=== PATIENT | male | born 1960 | race American Indian/Alaskan Native ===

== ENCOUNTER 2020-02-24 08:19 | Inpatient (IN) | payer MEDICARE ==
--- NOTE | 2020-02-24 09:29 | XRay Report ---
Chest single view INDICATION: Dyspnea IMPRESSION: Severe multifocal airspace disease within the mid and lower lungs noted bilaterally. Signer Name: Gianluca Quinteros MD Signed: 02/24/2020 9:24 AM Workstation Name: [id number]
[2020-02-24 09:40] LABS: Hematocrit 42.7 % (35.5-45.6); Hemoglobin 14.3 gm/dl (11.8-15.2); Mean Corpuscular HGB Conc 34 % (32-34); Mean Corpuscular Volume 85 fl (84-94); Platelet Count 401 K/mm3 (140-440); Red Blood Count 5.05 M/mm3 (3.65-5.03); Red Cell Distribution Width 15.3 % (13.2-15.2)
[2020-02-24 09:52] LABS: INR 1.21 (0.87-1.13); Partial Thromboplastin Time 25.4 Sec. (24.2-36.6)
--- NOTE | 2020-02-24 09:59 | Emergency Department Report ---
ED Shortness of Breath HPI - General Chief Complaint: Dyspnea/Respdistress Stated Complaint: CONOR Time Seen by Provider: 02/24/20 08:25 Source: patient Mode of arrival: Ambulatory Limitations: No Limitations - History of Present Illness Initial Comments: 59-year-old male, history of ALS, presents to ED with difficulty breathing, onset this morning. Patient is on a trilogy machine for breathing 18/11. EMS arrived, patient had O2 sats in the 80s. EMS attempted to place patient on their CPAP machine, however patient did not tolerate. Patient denies any fever, cough, chest pain. Patient long term care social worker is at bedside. She states patient has not been hospitalized in the last 2 years. Patient has a home health nurse, and lives with another individual. No known sick contacts. MD Complaint: shortness of breath -: This morning Severity: moderate Consistency: constant Improves With: nothing Worsens With: nothing Known History Of: other (ALS) - Related Data Home Medications Medication Instructions Recorded Confirmed Last Taken Baclofen 10 mg PO BID 02/24/20 02/24/20 Unknown Doxazosin 4 mg PO BID 02/24/20 02/24/20 Unknown Etodolac ER 500 mg PO BID 02/24/20 02/24/20 Unknown Lyrica 150 mg PO BID 02/24/20 02/24/20 Unknown Valium 5 mg PO DAILY 02/24/20 02/24/20 Unknown Allergies Allergy/AdvReac Type Severity Reaction Status Date / Time buprenorphine [From Butrans] Allergy Unknown Verified 02/24/20 08:37 fentanyl Allergy Unknown Verified 02/24/20 08:37 oxycodone [From OxyContin] Allergy Unknown Verified 02/24/20 08:37 ED Review of Systems ROS: Stated complaint: CONOR Other details as noted in HPI Comment: All other systems reviewed and negative Constitutional: denies: chills, fever Respiratory: shortness of breath. denies: cough Cardiovascular: denies: chest pain Musculoskeletal: other (Denies leg pain) ED Past Medical Hx - Past Medical History Previous Medical History?: Yes Additional medical history: als - Surgical History Past Surgical History?: No - Social History Smoking Status: Never Smoker Substance Use Type: None - Medications Home Medications: Home Medications Medication Instructions Recorded Confirmed Last Taken Type Baclofen 10 mg PO BID 02/24/20 02/24/20 Unknown History Doxazosin 4 mg PO BID 02/24/20 02/24/20 Unknown History Etodolac ER 500 mg PO BID 02/24/20 02/24/20 Unknown History Lyrica 150 mg PO BID 02/24/20 02/24/20 Unknown History Valium 5 mg PO DAILY 02/24/20 02/24/20 Unknown History ED Physical Exam - General Limitations: No Limitations General appearance: alert, in no apparent distress - Head Head exam: Present: atraumatic, normocephalic - Eye Eye exam: Present: normal appearance, EOMI - ENT ENT exam: Present: mucous membranes moist - Neck Neck exam: Present: normal inspection - Respiratory Respiratory exam: Present: decreased breath sounds - Cardiovascular Cardiovascular Exam: Present: normal rhythm, tachycardia - GI/Abdominal GI/Abdominal exam: Present: soft. Absent: distended, tenderness - Extremities Exam Extremities exam: Absent: calf tenderness - Neurological Exam Neurological exam: Present: alert, oriented X3, motor sensory deficit (Generalized weakness secondary to ALS) - Psychiatric Psychiatric exam: Present: normal affect, normal mood - Skin Skin exam: Present: warm, dry, intact, normal color ED Course Vital Signs 02/24/20 02/24/20 02/24/20 08:31 08:36 08:45 Temperature 97.9 F Pulse Rate 122 H 121 H 126 H Respiratory 16 28 H 22 Rate Blood Pressure Blood Pressure 118/75 119/74 121/77 [Left] O2 Sat by Pulse 90 88 95 Oximetry 02/24/20 02/24/20 02/24/20 08:52 09:00 09:15 Temperature Pulse Rate 126 H 127 H 125 H Respiratory 70 H 30 H 22 Rate Blood Pressure 122/83 Blood Pressure 122/83 150/90 [Left] O2 Sat by Pulse 98 96 97 Oximetry 02/24/20 11:52 Temperature Pulse Rate 125 H Respiratory 22 Rate Blood Pressure Blood Pressure [Left] O2 Sat by Pulse 96 Oximetry - Consultations Consultation #1: 02/24/20 12:20 Dr. Mooney, sales and service officer, consulted for hypercapnia. She is currently at bedside. She has made changes to patient's BiPAP settings. We will repeat ABG in an hour to determine if patient will require intubation. Also suggested adding Zosyn to cover for anaerobes for questionable aspiration. - Central Line Placement Right Femoral Consent Obtained: verbal consent Time Out Performed: Yes Patient Placed on Monitor/Pulse Ox: Yes MD Prep: mask, gown, gloves Central Line Prep: Chlorhexidine scrub Local Anesthesia Used: Lidocaine 1% Amount of Anesthesia Used (mls): 3 Ultrasound Used for Placement: No Central Line Lumen Inserted: triple Bloods Obtained for Lab: No Central Line Position: good blood return, all ports aspirated, flus, sutured in place with nyl Dressing Applied: Tegaderm Patient Tolerated Procedure: well Complications: none ED Medical Decision Making - Lab Data Result diagrams: 02/24/20 09:19 02/24/20 09:19 - EKG Data -: EKG Interpreted by Me EKG shows normal: sinus rhythm, axis, intervals, QRS complexes, ST-T waves Rate: tachycardia (rate 126) - Radiology Data Radiology results: report reviewed, image reviewed - Medical Decision Making Patient evaluated during downtime procedures. Electronic chart was unavailable during part of his ED stay. 59-year-old male with history of ALS presents to ED with difficulty breathing. Today found to be hypoxic upon presentation. Patient was placed on BiPAP, which did help with his oxygenation. Chest x-ray showed multifocal pneumonia, with elevated WBCs. Lactic acid normal. Patient eventually became hypotensive, showing signs of severe sepsis, so 30 cc/kg bolus of IV fluids was given. Patient responded well to fluid bolus. Right femoral central line was placed in case pressors were needed. The cultures drawn, Rocephin and azithromycin initially given. Braid Pattern Setter was consulted due to hypercapnia on ABG. Adjustments were made to BiPAP settings, and recommendation for Zosyn administration. Repeat ABG shows improvement and pH and CO2. We will hold off on intubation at this time. Patient admitted to hospitalist team for further management. - Differential Diagnosis Pneumonia, pulmonary edema, COVID-19 Critical Care Time: Yes Critical care time in (mins) excluding proc time.: 35 Critical care attestation.: If time is entered above; I have spent that time in minutes in the direct care of this critically ill patient, excluding procedure time. Critical Care Time: 35 min ED Disposition Clinical Impression: Pneumonia, Suspected 2019 novel coronavirus infection, Elevated troponin, Acute on chronic respiratory failure with hypoxia and hypercapnia, Sepsis Disposition: OP ADMIT IP TO THIS HOSP Is pt being admited?: Yes Condition: Stable Time of Disposition: 10:26
[2020-02-24 10:00] LABS: Alanine Aminotransferase 24 units/L (7-56); Albumin 3.6 g/dL (3.9-5); BUN/Creatinine Ratio 30; Blood Urea Nitrogen 6 mg/dL (9-20); Calcium 9.1 mg/dL (8.4-10.2); Hemolysis Index 9
[2020-02-24] MEDS ORDERED: cefTRIAXone/NS 1 GM/50 ML 1 GM/50 ML BAG IV ONE (10:06)
[2020-02-24 10:11] LABS: Chol/HDL Ratio 2.31 %; HDL Cholesterol 45 mg/dL (40-59); LDL Cholesterol,Direct 41 mg/dL (50-130)
[2020-02-24 10:28] LABS: ABG Base Excess -4.6 mmol/L (-2.0-3.0); ABG HCO3 25.6 mmol/L (20.0-26.0); ABG Methemoglobin 0.7 % (0.0-1.5); ABG Oxygen Saturation 95.2 % (95.0-99.0); ABG PCO2 70.8 mm Hg; ABG PO2 91.2 mm Hg (80.0-90.0)
[2020-02-24] MEDS ORDERED: AZITHROMYCIN 500 MG in SODIUM CHLORIDE 0.9% 250ML 250 ML IV ONE (10:30)
[2020-02-24 10:35] LABS: ABG PH 7.176 pH Units (7.350-7.450)
[2020-02-24 10:39] LABS: Band Neutrophils # (Manual) 2.4 K/mm3; Eosinophils % (Manual) 0 % (0.0-4.3); Total Cells Counted 100
[2020-02-24 10:42] LABS: Basophils % (Manual) 0 % (0.0-1.8); Platelet Estimate Consistent w Auto; RBC Morphology Normal
[2020-02-24 10:59] LABS: C-Reactive Protein 26.1 mg/dL (0.00-1.30)
[2020-02-24] MEDS ORDERED: SODIUM CHLORIDE 0.9% 1000 ML 1,000 ML ONE (11:11)
[2020-02-24] MEDS ORDERED: SODIUM CHLORIDE 0.9% 1000 ML 1,000 ML IV ONE (11:26)
[2020-02-24 12:08] LABS: ABG Base Excess -6.8 mmol/L (-2.0-3.0); ABG HCO3 25.7 mmol/L (20.0-26.0); ABG Methemoglobin 0.8 % (0.0-1.5); ABG Oxygen Saturation 93.5 % (95.0-99.0); ABG PCO2 94.9 mm Hg; ABG PO2 94.7 mm Hg (80.0-90.0)
[2020-02-24 12:13] LABS: ABG PH 7.051 pH Units (7.350-7.450)
[2020-02-24] MEDS ORDERED: PIPERACIL/TAZOBACTA 4.5/NS 100 4.5 GM/100 ML VIAL IV ONE ×2 (12:36→13:00)
[2020-02-24 14:04] LABS: ABG Base Excess -7.8 mmol/L (-2.0-3.0); ABG Methemoglobin 0.6 % (0.0-1.5); ABG PCO2 37.3 mm Hg; ABG PH 7.3 pH Units (7.350-7.450); ABG PO2 75.1 mm Hg (80.0-90.0)
--- NOTE | 2020-02-24 15:00 | Consultation ---
History of Present Illness Consult date: 02/24/20 Requesting physician: ALISHA DIANA Reason for consult: other (Critical care managemnet) History of present illness: 59-year-old male, history of ALS, presents to ED with difficulty breathing, onset this morning. Patient is on a trilogy machine for breathing 18/11. EMS arrived, patient had O2 sats in the 80s. EMS attempted to place patient on their CPAP machine, however patient did not tolerate. He has severe hypercapnic respiratory failure with hypersomnolence on current BIPAP settings. Per ED physician who was at the bedside when I evaluated the patient, he was mouthing words and more awake when he first arrived. She states that the patient denied any fever, cough, chest pain. His social media editor was at bedside and she stated patient has not been hospitalized in the last 2 years. If the patient needs [facility] anical ventilatory support, he is willing to pursue it as a treatment option. Patient has a home health nurse, and lives with another individual. No known sick contacts. Patient was seen and examined. Vitals, labs, medications, cahrt and imaging reviewed. His ABG on BIPAP 04/02, back up rate 12, FIO2 45% is 7.0/94.9/94.7. He is somnolent but will open his eyes on sternal rub. Adjustments were made on IPAP and FIO2 at the bedside to achieve minute ventilation of 11, ABG ordered for 1 hour later. Past History Past Medical History: other (ALS, Chronic respiratory failure on Trilogy) Past Surgical History: No surgical history Medications and Allergies Allergies Allergy/AdvReac Type Severity Reaction Status Date / Time buprenorphine [From Butrans] Allergy Unknown Verified 02/24/20 08:37 fentanyl Allergy Unknown Verified 02/24/20 08:37 oxycodone [From OxyContin] Allergy Unknown Verified 02/24/20 08:37 Home Medications Medication Instructions Recorded Confirmed Last Taken Type Baclofen 10 mg PO BID 02/24/20 02/24/20 Unknown History Doxazosin 4 mg PO BID 02/24/20 02/24/20 Unknown History Etodolac ER 500 mg PO BID 02/24/20 02/24/20 Unknown History Lyrica 150 mg PO BID 02/24/20 02/24/20 Unknown History Valium 5 mg PO DAILY 02/24/20 02/24/20 Unknown History Review of Systems ROS unobtainable: due to mental status Physical Examination Vital signs: Vital Signs Pulse Resp BP Pulse Ox 122 H 16 118/75 90 02/24/20 08:31 02/24/20 08:31 02/24/20 08:31 02/24/20 08:31 General appearance: other (somnolent on BIPAP with FFM) Eyes: non-icteric ENT: oropharynx dry Neck: supple, no lymphadenopathy, no JVD Effort: other (moderately labored) Ascultation: Bilateral: diminished breath sounds, rhonchi Cardiovascular: regular rate and rhythm, other (S1,S2, no murmurs) Gastrointestinal: normoactive bowel sounds, non-tender, non-distended Integumentary: normal, other (Femoral CVC) Extremities: no cyanosis, no edema, other (atrophic looking limbs) pupils equal and round, unable to assess other (unable to assess mood or affect secondary to mental status) Results - Laboratory Findings CBC and BMP: 02/25/20 04:00 02/25/20 04:00 ABG ABG pH 7.300 pH Units (7.350-7.450) L 02/24/20 13:45 ABG pCO2 37.3 mm Hg 02/24/20 13:45 ABG pO2 75.1 mm Hg (80.0-90.0) L 02/24/20 13:45 ABG O2 Saturation 95.0 % (95.0-99.0) 02/24/20 13:45 PT/INR, D-dimer PT 15.6 Sec. (12.2-14.9) H 02/24/20 09:19 INR 1.21 (0.87-1.13) H 02/24/20 09:19 D-Dimer 1311.96 ng/mlDDU (0-234) H 02/24/20 09:19 Abnormal lab findings: Abnormal Labs 02/24/20 02/24/20 02/24/20 09:19 09:19 09:19 WBC 20.2 H RBC 5.05 H RDW 15.3 H Seg Neuts % (Manual) 86.0 H Lymphocytes % (Manual) 1.0 L Seg Neutrophils # Man 17.4 H Lymphocytes # (Manual) 0.2 L PT 15.6 H INR 1.21 H D-Dimer 1311.96 H ABG pH ABG pO2 ABG HCO3 ABG O2 Saturation ABG Base Excess ABG Hemoglobin Oxyhemoglobin Sodium 135 L Potassium 3.2 L Chloride 92.2 L BUN 6 L Creatinine < 0.2 L Glucose 124 H Ferritin Total Bilirubin 2.30 H Alkaline Phosphatase 132 H Lactate Dehydrogenase Troponin T 0.080 H C-Reactive Protein Albumin 3.6 L LDL Cholesterol Direct 41 L 02/24/20 02/24/20 02/24/20 09:19 09:58 10:01 WBC RBC RDW Seg Neuts % (Manual) Lymphocytes % (Manual) Seg Neutrophils # Man Lymphocytes # (Manual) PT INR D-Dimer ABG pH 7.176 L* ABG pO2 91.2 H ABG HCO3 ABG O2 Saturation ABG Base Excess -4.6 L ABG Hemoglobin Oxyhemoglobin 92.6 L Sodium Potassium Chloride BUN Creatinine Glucose Ferritin 1715.0 H Total Bilirubin Alkaline Phosphatase Lactate Dehydrogenase 303 H Troponin T C-Reactive Protein 26.10 H Albumin LDL Cholesterol Direct 02/24/20 02/24/20 11:52 13:45 WBC RBC RDW Seg Neuts % (Manual) Lymphocytes % (Manual) Seg Neutrophils # Man Lymphocytes # (Manual) PT INR D-Dimer ABG pH 7.051 L* 7.300 L ABG pO2 94.7 H 75.1 L ABG HCO3 18.0 L ABG O2 Saturation 93.5 L ABG Base Excess -6.8 L -7.8 L ABG Hemoglobin 13.2 L 11.9 L Oxyhemoglobin 91.0 L 92.7 L Sodium Potassium Chloride BUN Creatinine Glucose Ferritin Total Bilirubin Alkaline Phosphatase Lactate Dehydrogenase Troponin T C-Reactive Protein Albumin LDL Cholesterol Direct - Diagnostic Findings Chest x-ray: image reviewed Assessment and Plan Acute on chronic hypoxemic-hypercapnic respiratory failure Sepsis secondary to multifocal Pneumonia History of ALS on Trilogy Multifocal pneumonia, possible element of aspiration PUI-COVID Acute toxic metabolic encephalopathy Elevated D-dimer Elevated troponin possibly type 2 ischemia Hypokalemia Hyponatremia -Continue BIPAP for now, low threshold to intubate if he fails BIPAP therapy -Aspiration precautions, HOB >40 -Permissive hypercapnic is acceptable -CXR, ABG in am - Continue to wean supplemental oxygen for target O2 sats 88-90% -Oxygen restrictive strategies -Antibiotics, add coverage for anaerobes, possible aspiration- de-escalate as clinically indicated. Monitor for toxicities -COVID testing -Lower extremity dopplers r/o VTE -Isolation precautions, per hospital protocol for PUI-COVID - conservative fluid management measures as tolerated by hemodynamics and renal function - Bronchodilators with pulmonary hygiene per RT - Accuchecks with glycemic control per SSI (While critically ill target blood glucose of 140-180 mg/dL; avoid hypoglycemia) - Avoid nephrotoxins, closely monitor renal function, dose all medications for renal function - Stress ulcer prophylaxis -Famotidine - VTE prophylaxis -Enoxaparin - Mobility protocol, off loading and skin assessment for pressure ulcer prevention -Currently has a femoral CVC, discontinue in the morning and place peripheral IVs in the morning - Supportive transfusions as indicated to keep HgB >7g/dL -Place small bowel feeding tube for enteric nutritional support and chronic home medications -RD consult for tube feedings -Trend troponin -Keep potassium at 4, Magnesium at 2 and Phos at 2.5 to optimize respiratory muscle function - Discussed with the ED team-RT,RN, ED physician Life threatening condition- Sepsis secondary to multifocal pneumonia. Acute and chronic hypoxic and hypercapnic resp failure; ALS; PUI-COVID Mortality/Morbidity- High Complexity of medical decision making- High CONDITION: CRITICAL PROGNOSIS: GUARDED CODE STATUS: FULL CODE The high probability of a clinically significant, sudden or life-threatening deterioration of the [respiratory & neurology, renal ] system(s) required my full and direct attention, intervention and personal management. The aggregate critical care time was [65] minutes without overlap. Time includes spent on; [x] Data Review and interpretation [x] Patient assessment and monitoring of vital signs [x] Documentation [x] Medication orders and management
--- NOTE | 2020-02-24 15:06 | History and Physical Report ---
History of Present Illness Date of examination: 02/24/20 Date of admission: 02/24/20 10:37 Chief complaint: Worsening shortness of breath History of present illness: Patient is on continuous BiPAP, no family available; unable to give proper history, obtained from ER note 59-year-old male patient with significant past medical history of ALS, presents to ED with worsening shortness of breath since this morning. Patient is on a trilogy machine for breathing 18/11. EMS arrived, patient had O2 sats in the 80s. EMS attempted to place patient on their CPAP machine, however patient did not tolerate. Patient denies any fever, cough, chest pain. Patient social wor ker is at bedside. She states patient has not been hospitalized in the last 2 years. Patient has a home health nurse, and lives with another individual. No known sick contacts. No other history available. Initial work-up in the emergency room is consistent with bilateral pneumonia on chest x-ray, leukocytosis Hypoxic hypercapnic respiratory failure, elevated D-dimers, elevated inflammatory markers High suspicion for COVID-19, patient placed in isolation droplet and contact Christensen PCR test requested. Patient received empiric antibiotics with Rocephin and Zithromax On continuous BiPAP Pulmonary critical has evaluated the patient Admitting the patient to ICU for close observation Past History Past Medical History: other (ALS) Past Surgical History: denies: No surgical history Social history: denies: smoking, alcohol abuse, prescription drug abuse Family history: denies: no significant family history Medications and Allergies Allergies Allergy/AdvReac Type Severity Reaction Status Date / Time buprenorphine [From Butrans] Allergy Unknown Verified 02/24/20 08:37 fentanyl Allergy Unknown Verified 02/24/20 08:37 oxycodone [From OxyContin] Allergy Unknown Verified 02/24/20 08:37 Home Medications Medication Instructions Recorded Confirmed Last Taken Type Baclofen 10 mg PO BID 02/24/20 02/24/20 Unknown History Doxazosin 4 mg PO BID 02/24/20 02/24/20 Unknown History Etodolac ER 500 mg PO BID 02/24/20 02/24/20 Unknown History Lyrica 150 mg PO BID 02/24/20 02/24/20 Unknown History Valium 5 mg PO DAILY 02/24/20 02/24/20 Unknown History Review of Systems ROS unobtainable: due to mental status Exam - Constitutional Vitals: Temp Pulse Resp BP Pulse Ox 97.9 F 125 H 22 150/90 96 02/24/20 08:36 02/24/20 11:52 02/24/20 11:52 02/24/20 09:15 02/24/20 11:52 General appearance: Present: mild distress, well-nourished, other (On continuous BiPAP) - EENT Eyes: Present: PERRL, EOM intact - Neck Neck: Present: supple, normal ROM - Respiratory Respiratory effort: normal Respiratory: bilateral: diminished, rhonchi, negative: rales, wheezing - Cardiovascular Rhythm: regular Heart Sounds: Present: S1 & S2 - Extremities Extremities: no ischemia, No edema Extremity abnormal: edema - Abdominal General gastrointestinal: Present: soft, non-tender, non-distended, normal bowel sounds - Integumentary Integumentary: Present: clear, warm - Musculoskeletal Musculoskeletal: strength equal bilaterally, generalized weakness - Psychiatric Psychiatric: cooperative, other (Noncommunicative) - Neurologic Neurologic: moves all extremities HEART Score - HEART Score Troponin: Troponin T 0.080 ng/mL (0.00-0.029) H 02/24/20 09:19 Results - Labs CBC & Chem 7: 02/24/20 09:19 02/24/20 09:19 Labs: Abnormal lab results 02/24/20 02/24/20 02/24/20 Range/Units 09:19 09:19 09:19 WBC 20.2 H (4.5-11.0) K/mm3 RBC 5.05 H (3.65-5.03) M/mm3 RDW 15.3 H (13.2-15.2) % Seg Neuts % (Manual) 86.0 H (40.0-70.0) % Lymphocytes % (Manual) 1.0 L (13.4-35.0) % Seg Neutrophils # Man 17.4 H (1.8-7.7) K/mm3 Lymphocytes # (Manual) 0.2 L (1.2-5.4) K/mm3 PT 15.6 H (12.2-14.9) Sec. INR 1.21 H (0.87-1.13) D-Dimer 1311.96 H (0-234) ng/mlDDU ABG pH (7.350-7.450) pH Units ABG pO2 (80.0-90.0) mm Hg ABG HCO3 (20.0-26.0) mmol/L ABG O2 Saturation (95.0-99.0) % ABG Base Excess (-2.0-3.0) mmol/L ABG Hemoglobin (14.0-18.0) gm/dl Oxyhemoglobin (95.0-99.0) % Sodium 135 L (137-145) mmol/L Potassium 3.2 L (3.6-5.0) mmol/L Chloride 92.2 L (98-107) mmol/L BUN 6 L (9-20) mg/dL Creatinine < 0.2 L (0.8-1.3) mg/dL Glucose 124 H (75-100) mg/dL Ferritin (30.0-300.0) ng/mL Total Bilirubin 2.30 H (0.1-1.2) mg/dL Alkaline Phosphatase 132 H (35-129) units/L Lactate Dehydrogenase (91-180) units/L Troponin T 0.080 H (0.00-0.029) ng/mL C-Reactive Protein (0.00-1.30) mg/dL Albumin 3.6 L (3.9-5) g/dL LDL Cholesterol Direct 41 L (50-130) mg/dL 02/24/20 02/24/20 02/24/20 Range/Units 09:19 09:58 10:01 WBC (4.5-11.0) K/mm3 RBC (3.65-5.03) M/mm3 RDW (13.2-15.2) % Seg Neuts % (Manual) (40.0-70.0) % Lymphocytes % (Manual) (13.4-35.0) % Seg Neutrophils # Man (1.8-7.7) K/mm3 Lymphocytes # (Manual) (1.2-5.4) K/mm3 PT (12.2-14.9) Sec. INR (0.87-1.13) D-Dimer (0-234) ng/mlDDU ABG pH 7.176 L* (7.350-7.450) pH Units ABG pO2 91.2 H (80.0-90.0) mm Hg ABG HCO3 (20.0-26.0) mmol/L ABG O2 Saturation (95.0-99.0) % ABG Base Excess -4.6 L (-2.0-3.0) mmol/L ABG Hemoglobin (14.0-18.0) gm/dl Oxyhemoglobin 92.6 L (95.0-99.0) % Sodium (137-145) mmol/L Potassium (3.6-5.0) mmol/L Chloride (98-107) mmol/L BUN (9-20) mg/dL Creatinine (0.8-1.3) mg/dL Glucose (75-100) mg/dL Ferritin 1715.0 H (30.0-300.0) ng/mL Total Bilirubin (0.1-1.2) mg/dL Alkaline Phosphatase (35-129) units/L Lactate Dehydrogenase 303 H (91-180) units/L Troponin T (0.00-0.029) ng/mL C-Reactive Protein 26.10 H (0.00-1.30) mg/dL Albumin (3.9-5) g/dL LDL Cholesterol Direct (50-130) mg/dL 02/24/20 02/24/20 Range/Units 11:52 13:45 WBC (4.5-11.0) K/mm3 RBC (3.65-5.03) M/mm3 RDW (13.2-15.2) % Seg Neuts % (Manual) (40.0-70.0) % Lymphocytes % (Manual) (13.4-35.0) % Seg Neutrophils # Man (1.8-7.7) K/mm3 Lymphocytes # (Manual) (1.2-5.4) K/mm3 PT (12.2-14.9) Sec. INR (0.87-1.13) D-Dimer (0-234) ng/mlDDU ABG pH 7.051 L* 7.300 L (7.350-7.450) pH Units ABG pO2 94.7 H 75.1 L (80.0-90.0) mm Hg ABG HCO3 18.0 L (20.0-26.0) mmol/L ABG O2 Saturation 93.5 L (95.0-99.0) % ABG Base Excess -6.8 L -7.8 L (-2.0-3.0) mmol/L ABG Hemoglobin 13.2 L 11.9 L (14.0-18.0) gm/dl Oxyhemoglobin 91.0 L 92.7 L (95.0-99.0) % Sodium (137-145) mmol/L Potassium (3.6-5.0) mmol/L Chloride (98-107) mmol/L BUN (9-20) mg/dL Creatinine (0.8-1.3) mg/dL Glucose (75-100) mg/dL Ferritin (30.0-300.0) ng/mL Total Bilirubin (0.1-1.2) mg/dL Alkaline Phosphatase (35-129) units/L Lactate Dehydrogenase (91-180) units/L Troponin T (0.00-0.029) ng/mL C-Reactive Protein (0.00-1.30) mg/dL Albumin (3.9-5) g/dL LDL Cholesterol Direct (50-130) mg/dL Assessment and Plan --Acute hypoxic hypercapnic respiratory failure; Requiring BiPAP, continue nebulizers, IV steroids IV antibiotics, pulmonary critical consulted Intubated as needed --High suspicion for COVID-19/PUI Respiratory, droplet isolation Christensen PCR test requested Inflammatory markers high ID consulted --Elevated D-dimers; Check CTA chest, lower extremity venous Doppler Lovenox DVT prophylaxis --Bilateral pneumonia; probably community-acquired Versus atypical, empiric antibiotics Rocephin and Zithromax Cultures, check pro calcitonin --Sepsis secondary to pneumonia Leukocytosis, tachycardia, pneumonia on chest x-ray --Elevated troponin; Serial cardiac enzymes, serial EKGs Echocardiogram, cardiology consult if needed --Hypokalemia; replaced with KCl Monitor levels --Hyponatremia; IV fluids Closely monitor electrolytes --DVT prophylaxis; Lovenox Admit to ICU for close observation We will closely monitor the patient and adjust the management as needed Plan of care reviewed with the patient and her nurse I spent 50 minutes coordinating this admission Critical care time 50 minutes
[2020-02-24] MEDS ORDERED: ALBUTEROL 2.5 MG/3 ML NEBU IH PRN (15:13)
--- NOTE | 2020-02-24 17:36 | Vascular Lab Report ---
DUPLEX DOPPLER LOWER EXTREMITY VEINS, BILATERAL INDICATION / CLINICAL INFORMATION: Elevated D-dimers/rule out DVT. TECHNIQUE: Duplex doppler imaging was performed through the veins of both lower extremities using venous sahara rome and other maneuvers. COMPARISON: None available. FINDINGS: RIGHT COMMON FEMORAL VEIN: Negative. RIGHT FEMORAL VEIN: Negative. RIGHT POPLITEAL VEIN: Negative. RIGHT CALF VEINS: Negative. LEFT COMMON FEMORAL VEIN: Negative. LEFT FEMORAL VEIN: Negative. LEFT POPLITEAL VEIN: Negative. LEFT CALF VEINS: Negative. ADDITIONAL FINDINGS: Right-sided femoral catheter is noted. IMPRESSION: No sonographic evidence for DVT in either lower extremity. Signer Name: Bandar Redman MD Signed: 02/24/2020 5:31 PM Workstation Name: [id number]
[2020-02-24 20:08] LABS: Creatine Kinase MB 3.5 ng/mL (0.0-4.0)
[2020-02-24] MEDS ORDERED: dexAMETHasone 4 MG/ML VIAL ONE (22:22)
[2020-02-24] MEDS ORDERED: METOPROLOL TARTRATE 25 MG TAB ONE (22:22)
[2020-02-24] MEDS ORDERED: ENOXAPARIN 40 MG/0.4 ML INJ SUB-Q ONE (22:22)
[2020-02-24] MEDS: METOPROLOL TARTRATE 25 MG TAB PO SCH (22:29)
[2020-02-24] MEDS: ENOXAPARIN 40 MG/0.4 ML INJ SUB-Q SCH (22:35)
[2020-02-24] MEDS: dexAMETHasone 4 MG/ML VIAL IV SCH (22:35)
--- NOTE | 2020-02-24 23:36 | Cat Scan Report ---
CT ANGIOGRAPHY OF THE CHEST WITH INTRAVENOUS CONTRAST AND MULTIPLANAR MIP RECONSTRUCTIONS INDICATION / CLINICAL INFORMATION: Shortness of breath and elevated d-dimer. TECHNIQUE: Axial CT images were obtained after injection of 100 cc Omnipaque 350 IV contrast using CTA protocol. 3 plane MIP / 3D reconstructions were produced. All CT scans at this location are performed using CT dose reduction for ALARA by means of automated exposure control. COMPARISON: None available. FINDINGS: There is good opacification of the pulmonary arterial system bilaterally without intraluminal filling defect to suggest acute PTE. The thoracic aorta is normal in caliber without dissection. No coronary artery calcification is seen. There is dense consolidation involving the majority of the left lower lobe with air bronchograms pres ent. There is also mild to moderate consolidation in the right lower lobe posteromedially with air br onchograms. There is milder patchy consolidation in the lingula and left upper lobe superiorly. There is also minimal patchy parenchymal disease throughout the remainder of both lungs. I see no evidence of mediastinal or hilar adenopathy. There is a minimal right pleural effusion and there is a trace a mount of pericardial effusion. There is a small simple cyst in the right kidney. The visualized upper abdomen is otherwise unremarka ble. No acute osseous abnormality is seen. IMPRESSION: 1. No evidence of acute PTE. 2. Multifocal pneumonia bilaterally, with severe involvement of the left lower lobe. Differential mandie gnosis includes bacterial pneumonia and aspiration pneumonia. Atypical causes of pneumonia are less l ikely. Signer Name: Chip Fox MD Signed: 02/24/2020 11:31 PM Workstation Name: [id number]
[2020-02-25 06:04] LABS: Hematocrit 37.4 % (35.5-45.6); Hemoglobin 12.3 gm/dl (11.8-15.2); Mean Corpuscular HGB Conc 33 % (32-34); Mean Corpuscular Volume 83 fl (84-94); Platelet Count 468 K/mm3 (140-440); Red Blood Count 4.49 M/mm3 (3.65-5.03); Red Cell Distribution Width 15.2 % (13.2-15.2)
[2020-02-25 06:24] LABS: Alanine Aminotransferase 21 units/L (7-56); Albumin 3.5 g/dL (3.9-5); Blood Urea Nitrogen 11 mg/dL (9-20); Calcium 9.1 mg/dL (8.4-10.2); Hemolysis Index 12
[2020-02-25 06:26] LABS: BUN/Creatinine Ratio 55
[2020-02-25 06:53] LABS: Band Neutrophils # (Manual) 0.2 K/mm3; Basophils % (Manual) 0 % (0.0-1.8); Eosinophils % (Manual) 0 % (0.0-4.3); Platelet Estimate Consistent w Auto; Total Cells Counted 100
[2020-02-25] MEDS ORDERED: cefTRIAXone/NS 1 GM/50 ML 1 GM/50 ML BAG IV ONE ×2 (09:29→10:24)
[2020-02-25] MEDS ORDERED: dexAMETHasone 4 MG/ML VIAL ONE (09:29)
[2020-02-25] MEDS ORDERED: PANTOPRAZOLE 40 MG INJ IV ONE (09:30)
[2020-02-25] MEDS ORDERED: METOPROLOL TARTRATE 25 MG TAB ONE (09:30)
[2020-02-25] MEDS: METOPROLOL TARTRATE 25 MG TAB PO SCH ×2 (09:49→22:45)
[2020-02-25] MEDS: cefTRIAXone/NS 2 GM/100 ML 2 GM/100 ML BAG IV SCH (09:49)
[2020-02-25] MEDS: dexAMETHasone 4 MG/ML VIAL IV SCH (09:49)
[2020-02-25] MEDS: PANTOPRAZOLE 40 MG INJ IV SCH (09:49)
[2020-02-25] MEDS ORDERED: cefTRIAXone/NS 1 GM/50 ML 1 GM/50 ML BAG IV SCH (10:00)
--- NOTE | 2020-02-25 10:04 | Progress Note ---
Assessment and Plan Assessment and plan: --Acute hypoxic hypercapnic respiratory failure; Requiring BiPAP, continue nebulizers, IV steroids IV antibiotics, pulmonary critical consulted Intubated as needed --High suspicion for COVID-19/PUI Respiratory, droplet isolation Christensen PCR test requested Inflammatory markers high ID consulted --Elevated D-dimers; Check CTA chest, lower extremity venous Doppler Lovenox DVT prophylaxis --Bilateral pneumonia; probably community-acquired Versus atypical, empiric antibiotics Rocephin and Zithromax Cultures, check pro calcitonin --Sepsis secondary to pneumonia Leukocytosis, tachycardia, pneumonia on chest x-ray --Elevated troponin; Serial cardiac enzymes, serial EKGs Echocardiogram, cardiology consult if needed --Hypokalemia; replaced with KCl Monitor levels --Hyponatremia; IV fluids Closely monitor electrolytes --DVT prophylaxis; Lovenox Admit to ICU for close observation 02/25/2020. CTA of the chest reveals no PE but does illustrate the bilateral pneumonia. Doppler ultrasound also negative for DVT. Blood cultures are pending. Await COVID-19 testing. Patient currently requiring BiPAP IPAP 24/EPAP 6 with FiO2 of 25%. Continue O2 and BiPAP as clinically indicated. ID and pulmonary consulted. History Interval history: Patient is on continuous BiPAP, no family available; unable to give proper history, obtained from ER note 59-year-old male patient with significant past medical history of ALS, presents to ED with worsening shortness of breath since this morning. Patient is on a trilogy machine for breathing 18/11. EMS arrived, patient had O2 sats in the 80s. EMS attempted to place patient on their CPAP machine, however patient did not tolerate. No new issues overnight. Hospitalist Physical - Constitutional Vitals: Temp Pulse Resp BP Pulse Ox 97.9 F 93 H 24 111/75 96 02/25/20 06:16 02/25/20 09:30 02/25/20 09:30 02/25/20 09:30 02/25/20 09:30 General appearance: Present: no acute distress, well-nourished, other (On continuous BiPAP) - EENT Eyes: Present: PERRL, EOM intact ENT: hearing intact, clear oral mucosa, dentition normal - Neck Neck: Present: supple, normal ROM - Respiratory Respiratory effort: normal Respiratory: bilateral: CTA - Cardiovascular Rhythm: regular Heart Sounds: Present: S1 & S2. Absent: gallop, rub - Extremities Extremities: no ischemia, No edema, Full ROM - Abdominal General gastrointestinal: soft, non-tender, non-distended, normal bowel sounds - Integumentary Integumentary: Present: clear, warm, dry - Neurologic Neurologic: CNII-XII intact, moves all extremities HEART Score - HEART Score Troponin: Troponin T 0.034 ng/mL (0.00-0.029) H D 02/24/20 19:35 Results - Labs CBC & Chem 7: 02/25/20 04:00 02/25/20 04:00 Labs: Laboratory Last Values WBC 22.9 K/mm3 (4.5-11.0) H 02/25/20 04:00 RBC 4.49 M/mm3 (3.65-5.03) 02/25/20 04:00 Hgb 12.3 gm/dl (11.8-15.2) 02/25/20 04:00 Hct 37.4 % (35.5-45.6) 02/25/20 04:00 MCV 83 fl (84-94) L 02/25/20 04:00 MCH 27 pg (28-32) L 02/25/20 04:00 MCHC 33 % (32-34) 02/25/20 04:00 RDW 15.2 % (13.2-15.2) 02/25/20 04:00 Plt Count 468 K/mm3 (140-440) H 02/25/20 04:00 Add Manual Diff Complete 02/25/20 04:00 Total Counted 100 02/25/20 04:00 Seg Neutrophils % Surface Room Shop Optician 02/25/20 04:00 Seg Neuts % (Manual) 89.0 % (40.0-70.0) H 02/25/20 04:00 Band Neutrophils % 1.0 % 02/25/20 04:00 Lymphocytes % (Manual) 7.0 % (13.4-35.0) L 02/25/20 04:00 Reactive Lymphs % (Man) 0 % 02/25/20 04:00 Monocytes % (Manual) 3.0 % (0.0-7.3) 02/25/20 04:00 Eosinophils % (Manual) 0 % (0.0-4.3) 02/25/20 04:00 Basophils % (Manual) 0 % (0.0-1.8) 02/25/20 04:00 Metamyelocytes % 0 % 02/25/20 04:00 Myelocytes % 0 % 02/25/20 04:00 Promyelocytes % 0 % 02/25/20 04:00 Blast Cells % 0 % 02/25/20 04:00 Nucleated RBC % Not Reportable 02/25/20 04:00 Seg Neutrophils # Man 20.4 K/mm3 (1.8-7.7) H 02/25/20 04:00 Band Neutrophils # 0.2 K/mm3 02/25/20 04:00 Lymphocytes # (Manual) 1.6 K/mm3 (1.2-5.4) 02/25/20 04:00 Abs React Lymphs (Man) 0.0 K/mm3 02/25/20 04:00 Monocytes # (Manual) 0.7 K/mm3 (0.0-0.8) 02/25/20 04:00 Eosinophils # (Manual) 0.0 K/mm3 (0.0-0.4) 02/25/20 04:00 Basophils # (Manual) 0.0 K/mm3 (0.0-0.1) 02/25/20 04:00 Metamyelocytes # 0.0 K/mm3 02/25/20 04:00 Myelocytes # 0.0 K/mm3 02/25/20 04:00 Promyelocytes # 0.0 K/mm3 02/25/20 04:00 Blast Cells # 0.0 K/mm3 02/25/20 04:00 WBC Morphology Not Reportable 02/25/20 04:00 Hypersegmented Neuts Not Reportable 02/25/20 04:00 Hyposegmented Neuts Not Reportable 02/25/20 04:00 Hypogranular Neuts Not Reportable 02/25/20 04:00 Smudge Cells Not Reportable 02/25/20 04:00 Toxic Granulation Not Reportable 02/25/20 04:00 Toxic Vacuolation Not Reportable 02/25/20 04:00 Dohle Bodies Not Reportable 02/25/20 04:00 Pelger-Huet Anomaly Not Reportable 02/25/20 04:00 Robert Rods Not Reportable 02/25/20 04:00 Platelet Estimate Consistent w auto 02/25/20 04:00 Clumped Platelets Not Reportable 02/25/20 04:00 Plt Clumps, EDTA Not Reportable 02/25/20 04:00 Large Platelets Not Reportable 02/25/20 04:00 Giant Platelets Not Reportable 02/25/20 04:00 Platelet Satelliting Not Reportable 02/25/20 04:00 Plt Morphology Comment Not Reportable 02/25/20 04:00 RBC Morphology Not Reportable 02/25/20 04:00 Dimorphic RBCs Not Reportable 02/25/20 04:00 Polychromasia Not Reportable 02/25/20 04:00 Hypochromasia Not Reportable 02/25/20 04:00 Poikilocytosis Not Reportable 02/25/20 04:00 Anisocytosis Not Reportable 02/25/20 04:00 Microcytosis Not Reportable 02/25/20 04:00 Macrocytosis Not Reportable 02/25/20 04:00 Spherocytes Not Reportable 02/25/20 04:00 Pappenheimer Bodies Not Reportable 02/25/20 04:00 Sickle Cells Not Reportable 02/25/20 04:00 Target Cells Not Reportable 02/25/20 04:00 Tear Drop Cells Not Reportable 02/25/20 04:00 Ovalocytes Not Reportable 02/25/20 04:00 Helmet Cells Not Reportable 02/25/20 04:00 [place] Bodies Not Reportable 02/25/20 04:00 [place] Rings Not Reportable 02/25/20 04:00 [place] Cells Not Reportable 02/25/20 04:00 Bite Cells Not Reportable 02/25/20 04:00 Crenated Cell Not Reportable 02/25/20 04:00 Elliptocytes Not Reportable 02/25/20 04:00 Acanthocytes (Spur) Not Reportable 02/25/20 04:00 Rouleaux Not Reportable 02/25/20 04:00 Hemoglobin C Crystals Not Reportable 02/25/20 04:00 Schistocytes Not Reportable 02/25/20 04:00 Malaria parasites Not Reportable 02/25/20 04:00 Colton Bodies Not Reportable 02/25/20 04:00 Hem Pathologist Commnt No 02/25/20 04:00 PT 15.6 Sec. (12.2-14.9) H 02/24/20 09:19 INR 1.21 (0.87-1.13) H 02/24/20 09:19 APTT 25.4 Sec. (24.2-36.6) 02/24/20 09:19 D-Dimer 1311.96 ng/mlDDU (0-234) H 02/24/20 09:19 ABG pH 7.300 pH Units (7.350-7.450) L 02/24/20 13:45 ABG pCO2 37.3 mm Hg 02/24/20 13:45 ABG pO2 75.1 mm Hg (80.0-90.0) L 02/24/20 13:45 ABG HCO3 18.0 mmol/L (20.0-26.0) L 02/24/20 13:45 ABG O2 Saturation 95.0 % (95.0-99.0) 02/24/20 13:45 ABG O2 Content 15.6 (0.0-44) 02/24/20 13:45 ABG Base Excess -7.8 mmol/L (-2.0-3.0) L 02/24/20 13:45 ABG Hemoglobin 11.9 gm/dl (14.0-18.0) L 02/24/20 13:45 ABG Carboxyhemoglobin 1.8 % (0.0-5.0) 02/24/20 13:45 ABG Methemoglobin 0.6 % (0.0-1.5) 02/24/20 13:45 Oxyhemoglobin 92.7 % (95.0-99.0) L 02/24/20 13:45 FiO2 25 % 02/24/20 13:45 Sodium 142 mmol/L (137-145) D 02/25/20 04:00 Potassium 3.2 mmol/L (3.6-5.0) L 02/25/20 04:00 Chloride 100.1 mmol/L (98-107) 02/25/20 04:00 Carbon Dioxide 18 mmol/L (22-30) L 02/25/20 04:00 Anion Gap 27 mmol/L 02/25/20 04:00 BUN 11 mg/dL (9-20) 02/25/20 04:00 Creatinine 0.2 mg/dL (0.8-1.3) L 02/25/20 04:00 Estimated GFR > 60 ml/min 02/25/20 04:00 BUN/Creatinine Ratio 55 % 02/25/20 04:00 Glucose 114 mg/dL (75-100) H 02/25/20 04:00 Lactic Acid 1.00 mmol/L (0.7-2.0) 02/24/20 12:07 Calcium 9.1 mg/dL (8.4-10.2) 02/25/20 04:00 Magnesium 2.30 mg/dL (1.7-2.3) 02/25/20 04:00 Ferritin 1715.0 ng/mL (30.0-300.0) H 02/24/20 10:01 Total Bilirubin 0.80 mg/dL (0.1-1.2) 02/25/20 04:00 AST 17 units/L (5-40) 02/25/20 04:00 ALT 21 units/L (7-56) 02/25/20 04:00 Alkaline Phosphatase 105 units/L (35-129) 02/25/20 04:00 Lactate Dehydrogenase 303 units/L (91-180) H 02/24/20 09:19 Total Creatine Kinase 101 units/L (55-170) 02/24/20 19:35 CK-MB (CK-2) 3.5 ng/mL (0.0-4.0) 02/24/20 19:35 CK-MB (CK-2) Rel Index 3.4 (0-4) 02/24/20 19:35 Troponin T 0.034 ng/mL (0.00-0.029) H D 02/24/20 19:35 C-Reactive Protein 26.10 mg/dL (0.00-1.30) H 02/24/20 09:19 NT-Pro-B Natriuret Pep 48.30 pg/mL (0-900) 02/24/20 09:19 Total Protein 6.5 g/dL (6.3-8.2) 02/25/20 04:00 Albumin 3.5 g/dL (3.9-5) L 02/25/20 04:00 Albumin/Globulin Ratio 1.2 % 02/25/20 04:00 Triglycerides 60 mg/dL (2-149) 02/24/20 09:19 Cholesterol 104 mg/dL (50-199) 02/24/20 09:19 LDL Cholesterol Direct 41 mg/dL (50-130) L 02/24/20 09:19 HDL Cholesterol 45 mg/dL (40-59) 02/24/20 09:19 Cholesterol/HDL Ratio 2.31 % 02/24/20 09:19 Procalcitonin 1.13 ng/mL (<0.15) 02/24/20 09:19 Microbiology: Microbiology 02/24/20 09:19 Peripheral/Venous Blood Culture - Preliminary Culture in Progress 02/24/20 09:19 Peripheral/Venous Blood Culture - Preliminary Culture in Progress Reardon/IV: IV Catheter Type [Right Peripheral IV Antecubital] Active Medications - Current Medications Current Medications: Generic Name Dose Route Start Last Admin Trade Name Freq PRN Reason Stop Dose Admin Acetaminophen 650 mg 02/24/20 15:13 Tylenol PO Q4H PRN Pain, Mild (1-3) Albuterol 2.5 mg 02/24/20 15:13 Proventil IH Q4HRT PRN Shortness Of Breath Dexamethasone 6 mg 02/24/20 19:00 02/25/20 09:49 Decadron IV 6 mg DAILY ALISA Administration Enoxaparin Sodium 40 mg 02/24/20 22:00 02/24/20 22:35 Enoxaparin SUB-Q 40 mg QDAY@2200 ALISA Administration Protocol Azithromycin 500 mg/ Sodium 250 mls @ 250 mls/hr 02/25/20 10:00 Chloride IV Q24HR ALISA Protocol Ceftriaxone Sodium 2 gm in 100 mls @ 200 mls/hr 02/25/20 10:00 02/25/20 09:49 Rocephin/Ns 2 Gm/100 Ml IV 200 mls/hr Q24HR ALISA Administration Protocol Metoprolol Tartrate 12.5 mg 02/24/20 22:00 02/25/20 09:49 Metoprolol PO 12.5 mg BID ALISA Administration Pantoprazole Sodium 40 mg 02/25/20 10:00 02/25/20 09:49 Protonix IV 40 mg QDAY ALISA Administration
[2020-02-25] MEDS: AZITHROMYCIN 500 MG in SODIUM CHLORIDE 0.9% 250ML 250 ML IV SCH (11:26)
--- NOTE | 2020-02-25 13:33 | Progress Note ---
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 Respiratory Failure Severe Sepsis with Shock Bilateral Pneumonia (Possible aspiration) History of ALS on Trilogy Oropharyngeal Dysphagia PUI-COVID Acute toxic metabolic encephalopathy Elevated D-dimer Elevated troponin possibly type 2 ischemia - give a break off BIPAP and transition to qhs BIPAP as tolerated - oral care per RN/RT - wean supplemental oxygen for target O2 sat's > 92% acutely - bronchodilators with pulmonary hygiene per RT - empiric antiinfectives per ID rec's (Rocephin and Zithromax) - COVID-19 isolation (Airborne & Contact) - empiric Dexamethasonme - follow COVID-19 test results - trend inflammatory markers to aid clinical decision making - BEEF SPLITTER evaluation vs enteral nutrition at goal rate as tolerated - Aspiration precautions - accuchecks with glycemic control per SSI (While critically ill target blood glucose of 140-180 mg/dL; avoid hypoglycemia) - avoid nephrotoxins, renally dose all medications - avoid benzodiazepine's, reduce the possibility of delirium - prn analgesia per pain score - Maintenance of sleep-wake cycle, avoid delirium - aspiration precautions - G.I. & VTE prophylaxis - PT/OT/ROM exercises - mobility protocols for pressure ulcer prophylaxis - Monitor hemodynamics closely - continue other care per attending / other consultants - discharge planning ongoing concurrently .... Re-evaluate in am & prn CONDITION: CRITICAL PROGNOSIS: GUARDED CODE STATUS: FULL CODE The high probability of a clinically significant, sudden or life-threatening deterioration of the [respiratory, cardiovascular & neurologic] system(s) required my full and direct attention, intervention and personal management. The aggregate critical care time was [31] minutes without overlap. Time includes spent on; [x] Data Review and interpretation [x] Patient assessment and monitoring of vital signs [x] Documentation [x] Medication orders and management Subjective Date of service: 02/25/20 Principal diagnosis: Ac on Ch Hypercapnic & hypoxemic Resp Failure; Severe Sepsis; Jamar PNA; ALS Interval history: Patient is seen today for: Acute on Chronic Hypercapnic & hypoxemic Respiratory Failure; Severe Sepsis with Shock; Bilateral Pneumonia (Possible aspiration); History of ALS on Trilogy; PUI-COVID; Acute toxic metabolic encephalopathy Seen and examined at bedside; 24hour events reviewed; nursing and respiratory care staff consulted; no adverse overnight events reported to me; resting in bed; remains on continuous BIPAP; much more alert; No N/V/F/C; denies acute pain Objective Vital Signs - 12hr 02/25/20 02/25/20 02/25/20 01:45 02:00 02:15 Temperature Pulse Rate 95 H 104 H 101 H Respiratory 20 20 20 Rate Blood Pressure 121/81 122/82 113/78 O2 Sat by Pulse 97 97 97 Oximetry 02/25/20 02/25/20 02/25/20 02:30 02:45 03:00 Temperature Pulse Rate 90 101 H 97 H Respiratory 17 19 17 Rate Blood Pressure 117/78 119/81 117/79 O2 Sat by Pulse 97 97 97 Oximetry 02/25/20 02/25/20 02/25/20 03:15 03:30 03:45 Temperature Pulse Rate 99 H 101 H 88 Respiratory 20 20 20 Rate Blood Pressure 110/77 117/80 118/77 O2 Sat by Pulse 97 97 97 Oximetry 02/25/20 02/25/20 02/25/20 03:54 04:00 04:15 Temperature Pulse Rate 99 H 100 H 97 H Respiratory 23 20 20 Rate Blood Pressure 122/83 117/78 O2 Sat by Pulse 98 97 97 Oximetry 02/25/20 02/25/20 02/25/20 04:30 04:45 05:00 Temperature Pulse Rate 100 H 87 102 H Respiratory 20 20 22 Rate Blood Pressure 116/80 122/81 113/81 O2 Sat by Pulse 97 98 97 Oximetry 02/25/20 02/25/20 02/25/20 05:15 05:30 05:45 Temperature Pulse Rate 100 H 94 H 95 H Respiratory 21 23 15 Rate Blood Pressure 115/80 113/78 113/69 O2 Sat by Pulse 97 97 97 Oximetry 02/25/20 02/25/20 02/25/20 06:00 06:15 06:16 Temperature 97.9 F Pulse Rate 93 H 98 H Respiratory 21 24 Rate Blood Pressure 124/86 119/81 O2 Sat by Pulse 97 97 Oximetry 02/25/20 02/25/20 02/25/20 06:30 07:00 07:30 Temperature Pulse Rate 74 96 H 89 Respiratory 20 20 20 Rate Blood Pressure 126/74 118/83 112/75 O2 Sat by Pulse 97 97 97 Oximetry 02/25/20 02/25/20 02/25/20 08:00 08:07 08:30 Temperature Pulse Rate 91 H 96 H 98 H Respiratory 24 20 20 Rate Blood Pressure 113/77 113/80 O2 Sat by Pulse 96 97 96 Oximetry 02/25/20 02/25/20 02/25/20 09:00 09:30 10:00 Temperature Pulse Rate 93 H 93 H 94 H Respiratory 21 24 20 Rate Blood Pressure 113/77 111/75 113/76 O2 Sat by Pulse 96 96 95 Oximetry 02/25/20 02/25/20 02/25/20 10:30 11:15 11:45 Temperature Pulse Rate 92 H 99 H 95 H Respiratory 20 20 20 Rate Blood Pressure 118/76 122/78 116/82 O2 Sat by Pulse 96 96 98 Oximetry 02/25/20 02/25/20 02/25/20 12:00 12:11 13:00 Temperature Pulse Rate 105 H 105 H 92 H Respiratory 22 24 20 Rate Blood Pressure 125/88 125/88 114/79 O2 Sat by Pulse 97 97 96 Oximetry Constitutional: appears uncomfortable, other (thin middle aged male with mildly increased respiratory effort at rest on BIPAP) Eyes: non-icteric ENT: oropharynx dry, other (BIPAP FFM) Neck: supple, no lymphadenopathy, no JVD Effort: mildly labored Ascultation: Bilateral: diminished breath sounds, rhonchi (bases) Percussion: Bilateral: not dull Cardiovascular: regular rate and rhythm, other (S1,S2, no murmurs) Gastrointestinal: normoactive bowel sounds, soft, non-tender, non-distended Integumentary: normal Extremities: no cyanosis, no edema, pulses normal, other (atrophic looking limbs) Neurologic: pupils equal and round, other (motor strength in extremities 1-2/5) Psychiatric: anxious CBC and BMP: 02/25/20 04:00 02/25/20 04:00 ABG, PT/INR, D-dimer: ABG ABG pH 7.441 (7.320-7.450) 02/25/20 12:26 POC ABG pCO2 33.3 mmHg (32.0-48.0) 02/25/20 12:26 ABG pCO2 37.3 mm Hg 02/24/20 13:45 POC ABG pO2 86.8 mmHg (83-108) 02/25/20 12:26 ABG pO2 75.1 mm Hg (80.0-90.0) L 02/24/20 13:45 POC ABG HCO3 22.2 02/25/20 12:26 ABG O2 Saturation 95.0 % (95.0-99.0) 02/24/20 13:45 PT/INR, D-dimer PT 15.6 Sec. (12.2-14.9) H 02/24/20 09:19 INR 1.21 (0.87-1.13) H 02/24/20 09:19 D-Dimer 1311.96 ng/mlDDU (0-234) H 02/24/20 09:19 Abnormal lab findings: Abnormal Labs 02/24/20 02/24/20 02/24/20 09:19 09:19 09:19 WBC 20.2 H RBC 5.05 H MCV MCH RDW 15.3 H Plt Count Seg Neuts % (Manual) 86.0 H Lymphocytes % (Manual) 1.0 L Seg Neutrophils # Man 17.4 H Lymphocytes # (Manual) 0.2 L PT 15.6 H INR 1.21 H D-Dimer 1311.96 H ABG pH ABG pO2 ABG HCO3 ABG O2 Saturation ABG Base Excess ABG Hemoglobin ABG Potassium ABG Glucose Oxyhemoglobin Sodium 135 L Potassium 3.2 L Chloride 92.2 L Carbon Dioxide BUN 6 L Creatinine < 0.2 L Glucose 124 H Ferritin Total Bilirubin 2.30 H Alkaline Phosphatase 132 H Lactate Dehydrogenase Troponin T 0.080 H C-Reactive Protein Albumin 3.6 L LDL Cholesterol Direct 41 L Arterial Blood Glucose 02/24/20 02/24/20 02/24/20 09:19 09:58 10:01 WBC RBC MCV MCH RDW Plt Count Seg Neuts % (Manual) Lymphocytes % (Manual) Seg Neutrophils # Man Lymphocytes # (Manual) PT INR D-Dimer ABG pH 7.176 L* ABG pO2 91.2 H ABG HCO3 ABG O2 Saturation ABG Base Excess -4.6 L ABG Hemoglobin ABG Potassium ABG Glucose Oxyhemoglobin 92.6 L Sodium Potassium Chloride Carbon Dioxide BUN Creatinine Glucose Ferritin 1715.0 H Total Bilirubin Alkaline Phosphatase Lactate Dehydrogenase 303 H Troponin T C-Reactive Protein 26.10 H Albumin LDL Cholesterol Direct Arterial Blood Glucose 02/24/20 02/24/20 02/24/20 11:52 13:45 19:35 WBC RBC MCV MCH RDW Plt Count Seg Neuts % (Manual) Lymphocytes % (Manual) Seg Neutrophils # Man Lymphocytes # (Manual) PT INR D-Dimer ABG pH 7.051 L* 7.300 L ABG pO2 94.7 H 75.1 L ABG HCO3 18.0 L ABG O2 Saturation 93.5 L ABG Base Excess -6.8 L -7.8 L ABG Hemoglobin 13.2 L 11.9 L ABG Potassium ABG Glucose Oxyhemoglobin 91.0 L 92.7 L Sodium Potassium Chloride Carbon Dioxide BUN Creatinine Glucose Ferritin Total Bilirubin Alkaline Phosphatase Lactate Dehydrogenase Troponin T 0.034 H D C-Reactive Protein Albumin LDL Cholesterol Direct Arterial Blood Glucose 02/25/20 02/25/20 02/25/20 04:00 04:00 12:26 WBC 22.9 H RBC MCV 83 L MCH 27 L RDW Plt Count 468 H Seg Neuts % (Manual) 89.0 H Lymphocytes % (Manual) 7.0 L Seg Neutrophils # Man 20.4 H Lymphocytes # (Manual) PT INR D-Dimer ABG pH ABG pO2 ABG HCO3 ABG O2 Saturation ABG Base Excess ABG Hemoglobin ABG Potassium 2.6 L ABG Glucose 142 H Oxyhemoglobin Sodium Potassium 3.2 L Chloride Carbon Dioxide 18 L BUN Creatinine 0.2 L Glucose 114 H Ferritin Total Bilirubin Alkaline Phosphatase Lactate Dehydrogenase Troponin T C-Reactive Protein Albumin 3.5 L LDL Cholesterol Direct Arterial Blood Glucose [address] scan - chest: image reviewed (LLL > RLL partial atelectasis; bilateral pneumonia; no central P.E.) Allied health notes reviewed: nursing
--- NOTE | 2020-02-25 13:58 | Consultation ---
History of Present Illness - Reason for Consult Consult date: 02/25/20 r/o COVID Requesting physician: ALISHA DIANA - History of Present Illness 59 years old female with history of ALS with chronic respiratory failure on home trilogy BiPAP, admitted on 02/24/2020 due to worsening shortness of breath for 24 hours. O2 sats were found down to the 80s. Patient denies any fever, cough, chest pain, nausea, vomiting, diarrhea. On arrival, temperature 97.9, HR 122, RR 16, O2 sat 90%, BP 118/75, O2 sat dropped to 88%. Initial WBC 20.2. pH 7.1. D-dimer 1311. Ferritin 1715. Blood cultures negative today. CTA shows no PE but multifocal pneumonia with predominance left lower lobe. Ultrasound of the legs no DVT. Procalcitonin 1.13. Review of Systems: reviewed ED and H&P notes. Limited due to PPE conservation strategy Past History Past Medical History: other (ALS, Chronic respiratory failure on Trilogy) Past Surgical History: No surgical history Social history: denies: smoking, alcohol abuse, prescription drug abuse Family history: denies: no significant family history Medications and Allergies Allergies Allergy/AdvReac Type Severity Reaction Status Date / Time buprenorphine [From Butrans] Allergy Unknown Verified 02/24/20 08:37 fentanyl Allergy Unknown Verified 02/24/20 08:37 oxycodone [From OxyContin] Allergy Unknown Verified 02/24/20 08:37 Home Medications Medication Instructions Recorded Confirmed Last Taken Type Baclofen 10 mg PO BID 02/24/20 02/24/20 Unknown History Doxazosin 4 mg PO BID 02/24/20 02/24/20 Unknown History Etodolac ER 500 mg PO BID 02/24/20 02/24/20 Unknown History Lyrica 150 mg PO BID 02/24/20 02/24/20 Unknown History Valium 5 mg PO DAILY 02/24/20 02/24/20 Unknown History Active Meds: Active Medications Acetaminophen (Tylenol) 650 mg PO Q4H PRN PRN Reason: Pain, Mild (1-3) Albuterol (Proventil) 2.5 mg IH Q4HRT PRN PRN Reason: Shortness Of Breath Dexamethasone (Decadron) 6 mg IV DAILY ALISA Last Admin: 02/25/20 09:49 Dose: 6 mg Documented by: Enoxaparin Sodium (Enoxaparin) 40 mg SUB-Q QDAY@2200 ALISA; Protocol Last Admin: 02/24/20 22:35 Dose: 40 mg Documented by: Azithromycin 500 mg/ Sodium (Chloride) 250 mls @ 250 mls/hr IV Q24HR ALISA; Prot ocol Stop: 02/27/20 10:59 Last Admin: 02/25/20 11:26 Dose: 250 mls/hr Documented by: Ceftriaxone Sodium (Rocephin/Ns 2 Gm/100 Ml) 2 gm in 100 mls @ 200 mls/hr IV Q24HR ALISA; Protocol Stop: 02/29/20 10:29 Last Admin: 02/25/20 09:49 Dose: 200 mls/hr Documented by: Metoprolol Tartrate (Metoprolol) 12.5 mg PO BID [facility] Last Admin: 02/25/20 09:49 Dose: 12.5 mg Documented by: Pantoprazole Sodium (Protonix) 40 mg IV QDAY [facility] Last Admin: 02/25/20 09:49 Dose: 40 mg Documented by: Physical Examination - Physical Exam Narrative exam: Physical Exam: reviewed ED and hospitalist notes, limited due to conservation of PPE and decrease risk of transmission. General appearance: limited due to conservation of PPE Eyes: limited due to conservation of PPE HENT: Atraumatic; limited due to conservation of PPE Lungs: limited due to conservation of PPE CV: limited due to conservation of PPE Abdomen: limited due to conservation of PPE Extremities: limited due to conservation of PPE Skin: limited due to conservation of PPE Psych: limited due to conservation of PPE Neuro: limited due to conservation of PPE - Constitutional Vitals: Vital Signs Temp Pulse Resp BP Pulse Ox 97.9 F 92 H 20 114/79 96 02/25/20 06:16 02/25/20 13:00 02/25/20 13:00 02/25/20 13:00 02/25/20 13:00 Temperature -Last 24 Hours Temperature 97.9 F Results - Labs CBC & Chem 7: 02/25/20 04:00 02/25/20 04:00 Labs: Abnormal lab results 02/24/20 02/24/20 02/25/20 Range/Units 13:45 19:35 04:00 WBC 22.9 H (4.5-11.0) K/mm3 MCV 83 L (84-94) fl MCH 27 L (28-32) pg Plt Count 468 H (140-440) K/mm3 Seg Neuts % (Manual) 89.0 H (40.0-70.0) % Lymphocytes % (Manual) 7.0 L (13.4-35.0) % Seg Neutrophils # Man 20.4 H (1.8-7.7) K/mm3 ABG pH 7.300 L (7.350-7.450) pH Units ABG pO2 75.1 L (80.0-90.0) mm Hg ABG HCO3 18.0 L (20.0-26.0) mmol/L ABG Base Excess -7.8 L (-2.0-3.0) mmol/L ABG Hemoglobin 11.9 L (14.0-18.0) gm/dl ABG Potassium (3.40-4.50) mmol/L ABG Glucose (65-95) mg/dL Oxyhemoglobin 92.7 L (95.0-99.0) % Potassium (3.6-5.0) mmol/L Carbon Dioxide (22-30) mmol/L Creatinine (0.8-1.3) mg/dL Glucose (75-100) mg/dL Troponin T 0.034 H D (0.00-0.029) ng/mL Albumin (3.9-5) g/dL Arterial Blood Glucose (65-95) mg/dL 02/25/20 02/25/20 Range/Units 04:00 12:26 WBC (4.5-11.0) K/mm3 MCV (84-94) fl MCH (28-32) pg Plt Count (140-440) K/mm3 Seg Neuts % (Manual) (40.0-70.0) % Lymphocytes % (Manual) (13.4-35.0) % Seg Neutrophils # Man (1.8-7.7) K/mm3 ABG pH (7.350-7.450) pH Units ABG pO2 (80.0-90.0) mm Hg ABG HCO3 (20.0-26.0) mmol/L ABG Base Excess (-2.0-3.0) mmol/L ABG Hemoglobin (14.0-18.0) gm/dl ABG Potassium 2.6 L (3.40-4.50) mmol/L ABG Glucose 142 H (65-95) mg/dL Oxyhemoglobin (95.0-99.0) % Potassium 3.2 L (3.6-5.0) mmol/L Carbon Dioxide 18 L (22-30) mmol/L Creatinine 0.2 L (0.8-1.3) mg/dL Glucose 114 H (75-100) mg/dL Troponin T (0.00-0.029) ng/mL Albumin 3.5 L (3.9-5) g/dL Arterial Blood Glucose 142 H (65-95) mg/dL Assessment and Plan Cultures: Blood culture no growth today SARS CoV2 PCR pending Assessment: 59 years old female with history of ALS with chronic respiratory failure on home trilogy BiPAP, admitted on 02/24/2020 due to worsening shortness of breath for 24 hours: #Severe sepsis: likely due to bilateral pneumonia. Present on admission with tachycardia, leukocytosis. #Severe bilateral pneumonia: Covid versus community-acquired pneumonia. Procalcitonin elevated-1.13. CTA shows no PE but multifocal pneumonia with predominance left lower lobe. No DVT on US. MArker for COVID elevated including [id number]. #Acute on chronic mixed respiratory failure: on BIPAP #ALS Recommendations: -Continue Dexamethasone 6 mg IV/PO daily for 10 days -If SARS COV2 PCR is positive, start Remdesivir 200 mg IV q day x 1 day followed by 100 mg IV q day x 4 days (CrCl>30. Order placed) -Monitor inflammatory markers - ferritin, Ddimer, CRP, LDH -Continue ceftriaxone and azithromycin -Continue anticoagulation per System Protocol All laboratory, cultures and imaging were reviewed. Guarded prognosis Dr. Child rounding this weekend Will follow Diana Maravilla MD Infectious Diseases Behavior Management Specialist [facility] M [phone] O [phone]
[2020-02-25] MEDS: ENOXAPARIN 40 MG/0.4 ML INJ SUB-Q SCH (22:45)
[2020-02-26] MEDS: METOPROLOL TARTRATE 25 MG TAB PO SCH ×2 (10:34→21:34)
[2020-02-26] MEDS: cefTRIAXone/NS 2 GM/100 ML 2 GM/100 ML BAG IV SCH (10:34)
[2020-02-26] MEDS: PANTOPRAZOLE 40 MG INJ IV SCH (10:34)
[2020-02-26] MEDS: AZITHROMYCIN 500 MG in SODIUM CHLORIDE 0.9% 250ML 250 ML IV SCH (10:34)
[2020-02-26] MEDS: dexAMETHasone 4 MG/ML VIAL IV SCH (10:34)
--- NOTE | 2020-02-26 10:42 | Progress Note ---
Assessment and Plan Assessment and plan: --Acute hypoxic hypercapnic respiratory failure; Requiring BiPAP, continue nebulizers, IV steroids IV antibiotics, pulmonary critical consulted Intubated as needed --COVID-19 negative --Elevated D-dimers; CTA chest, lower extremity venous Doppler both are negative Lovenox DVT prophylaxis --Bilateral pneumonia; probably community-acquired Versus atypical, empiric antibiotics Rocephin and Zithromax Cultures, check pro calcitonin --Sepsis secondary to pneumonia Leukocytosis, tachycardia, pneumonia on chest x-ray --Elevated troponin; Serial cardiac enzymes, serial EKGs Echocardiogram, cardiology consult if needed --Hypokalemia; replaced with KCl Monitor levels --Hyponatremia; IV fluids Closely monitor electrolytes --DVT prophylaxis; Lovenox Admit to ICU for close observation 02/25/2020. CTA of the chest reveals no PE but does illustrate the bilateral pneumonia. Doppler ultrasound also negative for DVT. Blood cultures are pending. Await COVID-19 testing. Patient currently requiring BiPAP IPAP 24/EPAP 6 with FiO2 of 25%. Continue O2 and BiPAP as clinically indicated. ID and pulmonary consulted. 02/26/2020. Blood cultures are negative x48 hours and Covid testing negative as well. Continue antibiotics per ID recommendations for community-acquired bilateral pneumonia. Cardiology consultation for elevated troponin. Check echocardiogram. History Interval history: Patient is on continuous BiPAP, no family available; unable to give proper history, obtained from ER note 59-year-old male patient with significant past medical history of ALS, presents to ED with worsening shortness of breath since this morning. Patient is on a tr ilogy machine for breathing 18/11. EMS arrived, patient had O2 sats in the 80s. EMS attempted to place patient on their CPAP machine, however patient did not tolerate. No new issues overnight. Hospitalist Physical - Constitutional Vitals: Temp Pulse Resp BP Pulse Ox 98.4 F 113 H 19 143/87 96 02/26/20 03:37 02/26/20 10:34 02/26/20 10:00 02/26/20 10:34 02/26/20 10:00 General appearance: Present: no acute distress, well-nourished, other (On continuous BiPAP) - EENT Eyes: Present: PERRL, EOM intact ENT: hearing intact, clear oral mucosa, dentition normal - Neck Neck: Present: supple, normal ROM - Respiratory Respiratory effort: normal Respiratory: bilateral: CTA - Cardiovascular Rhythm: regular Heart Sounds: Present: S1 & S2. Absent: gallop, rub - Extremities Extremities: no ischemia, No edema, Full ROM - Abdominal General gastrointestinal: soft, non-tender, non-distended, normal bowel sounds - Integumentary Integumentary: Present: clear, warm, dry - Neurologic Neurologic: CNII-XII intact, moves all extremities HEART Score - HEART Score Troponin: Troponin T 0.034 ng/mL (0.00-0.029) H D 02/24/20 19:35 Results - Labs CBC & Chem 7: 02/25/20 04:00 02/25/20 04:00 Labs: Laboratory Last Values WBC 22.9 K/mm3 (4.5-11.0) H 02/25/20 04:00 RBC 4.49 M/mm3 (3.65-5.03) 02/25/20 04:00 Hgb 12.3 gm/dl (11.8-15.2) 02/25/20 04:00 Hct 37.4 % (35.5-45.6) 02/25/20 04:00 MCV 83 fl (84-94) L 02/25/20 04:00 MCH 27 pg (28-32) L 02/25/20 04:00 MCHC 33 % (32-34) 02/25/20 04:00 RDW 15.2 % (13.2-15.2) 02/25/20 04:00 Plt Count 468 K/mm3 (140-440) H 02/25/20 04:00 Add Manual Diff Complete 02/25/20 04:00 Total Counted 100 02/25/20 04:00 Seg Neutrophils % [employer] 02/25/20 04:00 Seg Neuts % (Manual) 89.0 % (40.0-70.0) H 02/25/20 04:00 Band Neutrophils % 1.0 % 02/25/20 04:00 Lymphocytes % (Manual) 7.0 % (13.4-35.0) L 02/25/20 04:00 Reactive Lymphs % (Man) 0 % 02/25/20 04:00 Monocytes % (Manual) 3.0 % (0.0-7.3) 02/25/20 04:00 Eosinophils % (Manual) 0 % (0.0-4.3) 02/25/20 04:00 Basophils % (Manual) 0 % (0.0-1.8) 02/25/20 04:00 Metamyelocytes % 0 % 02/25/20 04:00 Myelocytes % 0 % 02/25/20 04:00 Promyelocytes % 0 % 02/25/20 04:00 Blast Cells % 0 % 02/25/20 04:00 Nucleated RBC % Not Reportable 02/25/20 04:00 Seg Neutrophils # Man 20.4 K/mm3 (1.8-7.7) H 02/25/20 04:00 Band Neutrophils # 0.2 K/mm3 02/25/20 04:00 Lymphocytes # (Manual) 1.6 K/mm3 (1.2-5.4) 02/25/20 04:00 Abs React Lymphs (Man) 0.0 K/mm3 02/25/20 04:00 Monocytes # (Manual) 0.7 K/mm3 (0.0-0.8) 02/25/20 04:00 Eosinophils # (Manual) 0.0 K/mm3 (0.0-0.4) 02/25/20 04:00 Basophils # (Manual) 0.0 K/mm3 (0.0-0.1) 02/25/20 04:00 Metamyelocytes # 0.0 K/mm3 02/25/20 04:00 Myelocytes # 0.0 K/mm3 02/25/20 04:00 Promyelocytes # 0.0 K/mm3 02/25/20 04:00 Blast Cells # 0.0 K/mm3 02/25/20 04:00 WBC Morphology Not Reportable 02/25/20 04:00 Hypersegmented Neuts Not Reportable 02/25/20 04:00 Hyposegmented Neuts Not Reportable 02/25/20 04:00 Hypogranular Neuts Not Reportable 02/25/20 04:00 Smudge Cells Not Reportable 02/25/20 04:00 Toxic Granulation Not Reportable 02/25/20 04:00 Toxic Vacuolation Not Reportable 02/25/20 04:00 Dohle Bodies Not Reportable 02/25/20 04:00 Pelger-Huet Anomaly Not Reportable 02/25/20 04:00 Robert Rods Not Reportable 02/25/20 04:00 Platelet Estimate Consistent w auto 02/25/20 04:00 Clumped Platelets Not Reportable 02/25/20 04:00 Plt Clumps, EDTA Not Reportable 02/25/20 04:00 Large Platelets Not Reportable 02/25/20 04:00 Giant Platelets Not Reportable 02/25/20 04:00 Platelet Satelliting Not Reportable 02/25/20 04:00 Plt Morphology Comment Not Reportable 02/25/20 04:00 RBC Morphology Not Reportable 02/25/20 04:00 Dimorphic RBCs Not Reportable 02/25/20 04:00 Polychromasia Not Reportable 02/25/20 04:00 Hypochromasia Not Reportable 02/25/20 04:00 Poikilocytosis Not Reportable 02/25/20 04:00 Anisocytosis Not Reportable 02/25/20 04:00 Microcytosis Not Reportable 02/25/20 04:00 Macrocytosis Not Reportable 02/25/20 04:00 Spherocytes Not Reportable 02/25/20 04:00 Pappenheimer Bodies Not Reportable 02/25/20 04:00 Sickle Cells Not Reportable 02/25/20 04:00 Target Cells Not Reportable 02/25/20 04:00 Tear Drop Cells Not Reportable 02/25/20 04:00 Ovalocytes Not Reportable 02/25/20 04:00 Helmet Cells Not Reportable 02/25/20 04:00 [employer] Bodies Not Reportable 02/25/20 04:00 [place] Rings Not Reportable 02/25/20 04:00 Riaz Cells Not Reportable 02/25/20 04:00 Bite Cells Not Reportable 02/25/20 04:00 Crenated Cell Not Reportable 02/25/20 04:00 Elliptocytes Not Reportable 02/25/20 04:00 Acanthocytes (Spur) Not Reportable 02/25/20 04:00 Rouleaux Not Reportable 02/25/20 04:00 Hemoglobin C Crystals Not Reportable 02/25/20 04:00 Schistocytes Not Reportable 02/25/20 04:00 Malaria parasites Not Reportable 02/25/20 04:00 Colton Bodies Not Reportable 02/25/20 04:00 Hem Pathologist Commnt No 02/25/20 04:00 PT 15.6 Sec. (12.2-14.9) H 02/24/20 09:19 INR 1.21 (0.87-1.13) H 02/24/20 09:19 APTT 25.4 Sec. (24.2-36.6) 02/24/20 09:19 D-Dimer 1311.96 ng/mlDDU (0-234) H 02/24/20 09:19 ABG pH 7.441 (7.320-7.450) 02/25/20 12:26 POC ABG pCO2 33.3 mmHg (32.0-48.0) 02/25/20 12:26 ABG pCO2 37.3 mm Hg 02/24/20 13:45 POC ABG pO2 86.8 mmHg (83-108) 02/25/20 12:26 ABG pO2 75.1 mm Hg (80.0-90.0) L 02/24/20 13:45 POC ABG HCO3 22.2 02/25/20 12:26 ABG HCO3 18.0 mmol/L (20.0-26.0) L 02/24/20 13:45 ABG O2 Saturation 95.0 % (95.0-99.0) 02/24/20 13:45 ABG O2 Content 15.6 (0.0-44) 02/24/20 13:45 POC ABG Base Excess -1.3 02/25/20 12:26 ABG Base Excess -7.8 mmol/L (-2.0-3.0) L 02/24/20 13:45 ABG Hemoglobin 13.2 (12.0-17.5) 02/25/20 12:26 ABG Carboxyhemoglobin 1.8 % (0.0-5.0) 02/24/20 13:45 ABG Methemoglobin 0.6 % (0.0-1.5) 02/24/20 13:45 ABG Sodium 137.3 mmol/L (136.0-145.0) 02/25/20 12:26 ABG Potassium 2.6 mmol/L (3.40-4.50) L 02/25/20 12:26 ABG Chloride 104.0 mmol/L (98-107) 02/25/20 12:26 ABG Glucose 142 mg/dL (65-95) H 02/25/20 12:26 Oxyhemoglobin 92.7 % (95.0-99.0) L 02/24/20 13:45 FiO2 25.0 02/25/20 12:26 Sodium 142 mmol/L (137-145) D 02/25/20 04:00 Potassium 3.2 mmol/L (3.6-5.0) L 02/25/20 04:00 Chloride 100.1 mmol/L (98-107) 02/25/20 04:00 Carbon Dioxide 18 mmol/L (22-30) L 02/25/20 04:00 Anion Gap 27 mmol/L 02/25/20 04:00 BUN 11 mg/dL (9-20) 02/25/20 04:00 Creatinine 0.2 mg/dL (0.8-1.3) L 02/25/20 04:00 Estimated GFR > 60 ml/min 02/25/20 04:00 BUN/Creatinine Ratio 55 % 02/25/20 04:00 Glucose 114 mg/dL (75-100) H 02/25/20 04:00 Lactic Acid 1.00 mmol/L (0.7-2.0) 02/24/20 12:07 Calcium 9.1 mg/dL (8.4-10.2) 02/25/20 04:00 Magnesium 2.30 mg/dL (1.7-2.3) 02/25/20 04:00 Ferritin 1715.0 ng/mL (30.0-300.0) H 02/24/20 10:01 Total Bilirubin 0.80 mg/dL (0.1-1.2) 02/25/20 04:00 AST 17 units/L (5-40) 02/25/20 04:00 ALT 21 units/L (7-56) 02/25/20 04:00 Alkaline Phosphatase 105 units/L (35-129) 02/25/20 04:00 Lactate Dehydrogenase 303 units/L (91-180) H 02/24/20 09:19 Total Creatine Kinase 101 units/L (55-170) 02/24/20 19:35 CK-MB (CK-2) 3.5 ng/mL (0.0-4.0) 02/24/20 19:35 CK-MB (CK-2) Rel Index 3.4 (0-4) 02/24/20 19:35 Troponin T 0.034 ng/mL (0.00-0.029) H D 02/24/20 19:35 C-Reactive Protein 26.10 mg/dL (0.00-1.30) H 02/24/20 09:19 NT-Pro-B Natriuret Pep 48.30 pg/mL (0-900) 02/24/20 09:19 Total Protein 6.5 g/dL (6.3-8.2) 02/25/20 04:00 Albumin 3.5 g/dL (3.9-5) L 02/25/20 04:00 Albumin/Globulin Ratio 1.2 % 02/25/20 04:00 Triglycerides 60 mg/dL (2-149) 02/24/20 09:19 Cholesterol 104 mg/dL (50-199) 02/24/20 09:19 LDL Cholesterol Direct 41 mg/dL (50-130) L 02/24/20 09:19 HDL Cholesterol 45 mg/dL (40-59) 02/24/20 09:19 Cholesterol/HDL Ratio 2.31 % 02/24/20 09:19 Procalcitonin 1.13 ng/mL (<0.15) 02/24/20 09:19 Arterial Blood Glucose 142 mg/dL (65-95) H 02/25/20 12:26 Arterial Blood Ionized Calcium 4.7 mg/dL (4.6-5.3) 02/25/20 12:26 Coronavirus (PCR) Negative (Negative) 02/25/20 09:03 Microbiology: Microbiology 02/24/20 09:19 Peripheral/Venous Blood Culture - Preliminary NO GROWTH AFTER 48 HOURS 02/24/20 09:19 Peripheral/Venous Blood Culture - Preliminary NO GROWTH AFTER 48 HOURS Reardon/IV: Voiding Method Condom Catheter IV Catheter Type [Right Peripheral IV Antecubital] Active Medications - Current Medications Current Medications: Generic Name Dose Route Start Last Admin Trade Name Freq PRN Reason Stop Dose Admin Acetaminophen 650 mg 02/24/20 15:13 Tylenol PO Q4H PRN Pain, Mild (1-3) Albuterol 2.5 mg 02/24/20 15:13 Proventil IH Q4HRT PRN Shortness Of Breath Dexamethasone 6 mg 02/24/20 19:00 02/26/20 10:34 Decadron IV 03/04/20 10:01 6 mg DAILY ALISA Administration Enoxaparin Sodium 40 mg 02/24/20 22:00 02/25/20 22:45 Enoxaparin SUB-Q 40 mg QDAY@2200 ALISA Administration Protocol Azithromycin 500 mg/ Sodium 250 mls @ 250 mls/hr 02/25/20 10:00 02/26/20 10:34 Chloride IV 02/27/20 10:59 250 mls/hr Q24HR ALISA Administration Protocol Ceftriaxone Sodium 2 gm in 100 mls @ 200 mls/hr 02/25/20 10:00 02/26/20 10:34 Rocephin/Ns 2 Gm/100 Ml IV 02/29/20 10:29 200 mls/hr Q24HR ALISA Administration Protocol Metoprolol Tartrate 12.5 mg 02/24/20 22:00 02/26/20 10:34 Metoprolol PO 12.5 mg BID ALISA Administration Pantoprazole Sodium 40 mg 02/25/20 10:00 02/26/20 10:34 Protonix IV 40 mg QDAY ALISA Administration
--- NOTE | 2020-02-26 11:04 | Progress Note ---
Assessment and Plan Acute on chronic hypoxemic-hypercapnic respiratory failure Sepsis secondary to multifocal Pneumonia History of ALS on Trilogy Multifocal pneumonia, possible element of aspiration PUI-COVID Acute toxic metabolic encephalopathy Elevated D-dimer Elevated troponin possibly type 2 ischemia Hypokalemia Hyponatremia -Continue BIPAP for now, low threshold to intubate if he fails BIPAP therapy- has been on BIPAP since admission. Removed BIPAP at the bedside, he desaturated to 70s even wiht Vapotehrm 40L and FIO2 100% Explained to him that if he continues to require BIPAP tomorrow we will have to intubate and place on MVS. He is agreeable -Place small bowel feeding tube for enteric nutritional support and chronic home medications- RN will place today -Aspiration precautions, HOB >40 -Permissive hypercapnic is acceptable -CXR, ABG in am - Continue to wean supplemental oxygen for target O2 sats 88-90% -Oxygen restrictive strategies -Antibiotics, add coverage for anaerobes, possible aspiration- de-escalate as clinically indicated. Monitor for toxicities -Isolation precautions, per hospital protocol for PUI-COVID - conservative fluid management measures as tolerated by hemodynamics and renal function - Bronchodilators with pulmonary hygiene per RT - Accuchecks with glycemic control per SSI (While critically ill target blood glucose of 140-180 mg/dL; avoid hypoglycemia) - Avoid nephrotoxins, closely monitor renal function, dose all medications for renal function - Stress ulcer prophylaxis -Famotidine - VTE prophylaxis -Enoxaparin - Mobility protocol, off loading and skin assessment for pressure ulcer prevention -Currently has a femoral CVC, discontinue in the morning and place peripheral IVs in the morning - Supportive transfusions as indicated to keep HgB >7g/dL -Keep potassium at 4, Magnesium at 2 and Phos at 2.5 to optimize respiratory muscle function Discussed with the ICU team-RT,RN, Life threatening condition- Sepsis secondary to multifocal pneumonia. Acute and chronic hypoxic and hypercapnic resp failure; ALS; PUI-COVID Mortality/Morbidity- High Complexity of medical decision making- High CONDITION: CRITICAL PROGNOSIS: GUARDED CODE STATUS: FULL CODE The high probability of a clinically significant, sudden or life-threatening deterioration of the [respiratory & neurology, renal ] system(s) required my full and direct attention, intervention and personal management. The aggregate critical care time was [35] minutes without overlap. Time includes spent on; [x] Data Review and interpretation [x] Patient assessment and monitoring of vital signs [x] Documentation [x] Medication orders and management Subjective Date of service: 02/26/20 Principal diagnosis: Ac on Ch Hypercapnic & hypoxemic Resp Failure; Severe Sepsis; Jamar PNA; ALS Interval history: Patient is seen today for: Acute on Chronic Hypercapnic & hypoxemic Respiratory Failure; Severe Sepsis with Shock; Bilateral Pneumonia (Possible aspiration); History of ALS on Trilogy; PUI-COVID; Acute toxic metabolic encephalopathy Seen and examined at bedside; 24hour events reviewed; nursing and respiratory care staff consulted; no adverse overnight events reported to me; resting in bed; remains on continuous BIPAP; much more alert, talking and responsive; No N/V/F/C; denies acute pain Objective Vital Signs - 12hr 02/25/20 02/26/20 02/26/20 23:14 00:00 00:07 Temperature 97.8 F Pulse Rate 89 97 H Respiratory 22 20 Rate Blood Pressure 129/86 129/86 O2 Sat by Pulse 99 99 Oximetry 02/26/20 02/26/20 02/26/20 01:00 01:35 02:00 Temperature Pulse Rate 81 99 H 81 Respiratory 19 21 19 Rate Blood Pressure 116/82 122/79 122/79 O2 Sat by Pulse 98 99 98 Oximetry 02/26/20 02/26/20 02/26/20 03:00 03:02 03:37 Temperature 98.4 F Pulse Rate 85 Respiratory 16 20 Rate Blood Pressure 122/77 O2 Sat by Pulse 98 99 Oximetry 02/26/20 02/26/20 02/26/20 04:00 05:00 05:16 Temperature Pulse Rate 103 H 89 98 H Respiratory 20 20 23 Rate Blood Pressure 138/90 124/79 124/79 O2 Sat by Pulse 98 98 98 Oximetry 02/26/20 02/26/20 02/26/20 06:00 07:00 08:00 Temperature Pulse Rate 96 H 89 103 H Respiratory 17 20 21 Rate Blood Pressure 127/82 124/81 141/88 O2 Sat by Pulse 98 98 98 Oximetry 02/26/20 02/26/20 02/26/20 09:00 10:00 10:34 Temperature Pulse Rate 113 H 107 H 113 H Respiratory 23 19 Rate Blood Pressure 138/94 143/87 143/87 O2 Sat by Pulse 98 96 Oximetry Constitutional: appears uncomfortable, other (thin middle aged male with mildly increased respiratory effort at rest on BIPAP) Eyes: non-icteric ENT: oropharynx dry, other (BIPAP FFM) Neck: supple, no lymphadenopathy, no JVD Effort: mildly labored Ascultation: Bilateral: diminished breath sounds, rhonchi (bases) Percussion: Bilateral: not dull Cardiovascular: regular rate and rhythm, other (S1,S2, no murmurs) Gastrointestinal: normoactive bowel sounds, soft, non-tender, non-distended Integumentary: normal Extremities: no cyanosis, no edema, pulses normal, other (atrophic looking limbs) Neurologic: pupils equal and round, other (motor strength in extremities 1-2/5) Psychiatric: mood appropriate, affect normal CBC and BMP: 02/25/20 04:00 02/27/20 Unknown ABG, PT/INR, D-dimer: ABG ABG pH 7.441 (7.320-7.450) 02/25/20 12:26 POC ABG pCO2 33.3 mmHg (32.0-48.0) 02/25/20 12:26 ABG pCO2 37.3 mm Hg 02/24/20 13:45 POC ABG pO2 86.8 mmHg (83-108) 02/25/20 12:26 ABG pO2 75.1 mm Hg (80.0-90.0) L 02/24/20 13:45 POC ABG HCO3 22.2 02/25/20 12:26 ABG O2 Saturation 95.0 % (95.0-99.0) 02/24/20 13:45 PT/INR, D-dimer PT 15.6 Sec. (12.2-14.9) H 02/24/20 09:19 INR 1.21 (0.87-1.13) H 02/24/20 09:19 D-Dimer 1311.96 ng/mlDDU (0-234) H 02/24/20 09:19 Abnormal lab findings: Abnormal Labs 02/24/20 02/24/20 02/24/20 09:19 09:19 09:19 WBC 20.2 H RBC 5.05 H MCV MCH RDW 15.3 H Plt Count Seg Neuts % (Manual) 86.0 H Lymphocytes % (Manual) 1.0 L Seg Neutrophils # Man 17.4 H Lymphocytes # (Manual) 0.2 L PT 15.6 H INR 1.21 H D-Dimer 1311.96 H ABG pH ABG pO2 ABG HCO3 ABG O2 Saturation ABG Base Excess ABG Hemoglobin ABG Potassium ABG Glucose Oxyhemoglobin Sodium 135 L Potassium 3.2 L Chloride 92.2 L Carbon Dioxide BUN 6 L Creatinine < 0.2 L Glucose 124 H Ferritin Total Bilirubin 2.30 H Alkaline Phosphatase 132 H Lactate Dehydrogenase Troponin T 0.080 H C-Reactive Protein Albumin 3.6 L LDL Cholesterol Direct 41 L Arterial Blood Glucose 02/24/20 02/24/20 02/24/20 09:19 09:58 10:01 WBC RBC MCV MCH RDW Plt Count Seg Neuts % (Manual) Lymphocytes % (Manual) Seg Neutrophils # Man Lymphocytes # (Manual) PT INR D-Dimer ABG pH 7.176 L* ABG pO2 91.2 H ABG HCO3 ABG O2 Saturation ABG Base Excess -4.6 L ABG Hemoglobin ABG Potassium ABG Glucose Oxyhemoglobin 92.6 L Sodium Potassium Chloride Carbon Dioxide BUN Creatinine Glucose Ferritin 1715.0 H Total Bilirubin Alkaline Phosphatase Lactate Dehydrogenase 303 H Troponin T C-Reactive Protein 26.10 H Albumin LDL Cholesterol Direct Arterial Blood Glucose 02/24/20 02/24/20 02/24/20 11:52 13:45 19:35 WBC RBC MCV MCH RDW Plt Count Seg Neuts % (Manual) Lymphocytes % (Manual) Seg Neutrophils # Man Lymphocytes # (Manual) PT INR D-Dimer ABG pH 7.051 L* 7.300 L ABG pO2 94.7 H 75.1 L ABG HCO3 18.0 L ABG O2 Saturation 93.5 L ABG Base Excess -6.8 L -7.8 L ABG Hemoglobin 13.2 L 11.9 L ABG Potassium ABG Glucose Oxyhemoglobin 91.0 L 92.7 L Sodium Potassium Chloride Carbon Dioxide BUN Creatinine Glucose Ferritin Total Bilirubin Alkaline Phosphatase Lactate Dehydrogenase Troponin T 0.034 H D C-Reactive Protein Albumin LDL Cholesterol Direct Arterial Blood Glucose 02/25/20 02/25/20 02/25/20 04:00 04:00 12:26 WBC 22.9 H RBC MCV 83 L MCH 27 L RDW Plt Count 468 H Seg Neuts % (Manual) 89.0 H Lymphocytes % (Manual) 7.0 L Seg Neutrophils # Man 20.4 H Lymphocytes # (Manual) PT INR D-Dimer ABG pH ABG pO2 ABG HCO3 ABG O2 Saturation ABG Base Excess ABG Hemoglobin ABG Potassium 2.6 L ABG Glucose 142 H Oxyhemoglobin Sodium Potassium 3.2 L Chloride Carbon Dioxide 18 L BUN Creatinine 0.2 L Glucose 114 H Ferritin Total Bilirubin Alkaline Phosphatase Lactate Dehydrogenase Troponin T C-Reactive Protein Albumin 3.5 L LDL Cholesterol Direct Arterial Blood Glucose 142 H Chest x-ray: image reviewed Allied health notes reviewed: RT
[2020-02-26] MEDS ORDERED: LIPASE 10,500/PROTEASE 25,000/AMYLASE 43,750 (UNITS) DR CAP FEEDTUBE PRN (11:16)
[2020-02-26] MEDS ORDERED: SODIUM BICARBONATE 325 MG TAB FEEDTUBE PRN (11:16)
[2020-02-26] MEDS ORDERED: SIMPLE SYRUP 15 ML FEEDTUBE PRN ×2 (11:16)
[2020-02-26] MEDS: POTASSIUM CHLORIDE 20 MEQ 20 MEQ/100 ML BAG IV SCH ×2 (12:12→13:07)
--- NOTE | 2020-02-26 13:31 | Consultation ---
History of Present Illness Consult date: 02/26/20 Requesting physician: ALICIA AVILES Consult reason: elevated troponin History of present illness: Pt is a 59 y.o. male, previously unknown to our practice, who presented in acute respiratory distress. Of note, pt is a poor historian, and thus majority of HPI obtained from chart. Pt has a hx of chronic respiratory failure and is on Trilogy machine at home. He was unable to tolerate CPAP attempted by EMS. Cardiology has been consulted for eval of elevated troponin. No chest pain reported. ECG reveals no acute ischemic changes. Past History Past Medical History: other (ALS, chronic respiratory failure (on Trilogy)) Social history: smoking (former), alcohol abuse (~ 2 drinks/day) Medications and Allergies Allergies Allergy/AdvReac Type Severity Reaction Status Date / Time buprenorphine [From Butrans] Allergy Unknown Verified 02/24/20 08:37 fentanyl Allergy Unknown Verified 02/24/20 08:37 oxycodone [From OxyContin] Allergy Unknown Verified 02/24/20 08:37 Home Medications Medication Instructions Recorded Confirmed Last Taken Type Baclofen 10 mg PO BID 02/24/20 02/24/20 Unknown History Doxazosin 4 mg PO BID 02/24/20 02/24/20 Unknown History Etodolac ER 500 mg PO BID 02/24/20 02/24/20 Unknown History Lyrica 150 mg PO BID 02/24/20 02/24/20 Unknown History Valium 5 mg PO DAILY 02/24/20 02/24/20 Unknown History Active Meds: Active Medications Acetaminophen (Tylenol) 650 mg PO Q4H PRN PRN Reason: Pain, Mild (1-3) Albuterol (Proventil) 2.5 mg IH Q4HRT PRN PRN Reason: Shortness Of Breath Lipase/Protease/Amylase (Pancreedy Dr 10,500 Unit) 1 each FEEDTUBE PRN PRN PRN Reason: For Clogged Feeding Tube Dexamethasone (Decadron) 6 mg IV DAILY [facility] Stop: 03/04/20 10:01 Last Admin: 02/26/20 10:34 Dose: 6 mg Documented by: Enoxaparin Sodium (Enoxaparin) 40 mg SUB-Q QDAY@2200 ALISA; Protocol Last Admin: 02/25/20 22:45 Dose: 40 mg Documented by: Azithromycin 500 mg/ Sodium (Chloride) 250 mls @ 250 mls/hr IV Q24HR [facility]; Protocol Stop: 02/27/20 10:59 Last Admin: 02/26/20 10:34 Dose: 250 mls/hr Documented by: Ceftriaxone Sodium (Rocephin/Ns 2 Gm/100 Ml) 2 gm in 100 mls @ 200 mls/hr IV Q24HR [facility]; Protocol Stop: 02/29/20 10:29 Last Admin: 02/26/20 10:34 Dose: 200 mls/hr Documented by: Potassium Chloride (Kcl 20meq/100ml) 20 meq in 100 mls @ 100 mls/hr IV Q1H ALISA Stop: 02/26/20 13:59 Last Admin: 02/26/20 13:07 Dose: 100 mls/hr Documented by: Metoprolol Tartrate (Metoprolol) 12.5 mg PO BID [facility] Last Admin: 02/26/20 10:34 Dose: 12.5 mg Documented by: Pantoprazole Sodium (Protonix) 40 mg IV QDAY [facility] Last Admin: 02/26/20 10:34 Dose: 40 mg Documented by: Simple Syrup (Simple Syrup) 15 ml FEEDTUBE PRN PRN PRN Reason: Hypoglycemia Simple Syrup (Simple Syrup) 30 ml FEEDTUBE PRN PRN PRN Reason: Hypoglycemia Sodium Bicarbonate (Sodium Bicarbonate) 325 mg FEEDTUBE PRN PRN PRN Reason: For Clogged Feeding Tube Review of Systems ROS unobtainable: due to mental status Physical Examination Last Vital Signs Temp 98.4 F 02/26/20 03:37 Pulse 139 H 02/26/20 11:30 Resp 26 H 02/26/20 11:30 BP 130/83 02/26/20 11:30 Pulse Ox 96 02/26/20 11:30 General appearance: no acute distress HEENT: Positive: EOMI, Normocephaly Neck: Positive: neck supple, trachea midline. Negative: JVD/HJR Cardiac: Positive: Regular Rhythm, S1/S2, Tachycardia. Negative: Audible Murmur Lungs: Positive: Decreased Breath Sounds Neuro: Positive: Other (unable to assess) Abdomen: Positive: Soft, Active Bowel Sounds. Negative: Tender Skin: Positive: Clear Musculoskeletal: No Fluid Collection Extremities: Present: upper extr. pulses, lower extr. pulses. Absent: edema Results 02/25/20 04:00 02/25/20 04:00 - Imaging and Cardiology Echo: pending EKG: report reviewed, image reviewed - EKG Interpretation EKG: no acute changes EKG interpretations - Telemetry EKG Rhythm: Sinus Tachycardia - EKG Sinus rhythms and dysrhythmias: sinus tachycardia Assessment and Plan Suspect NSTEMI Type 2 in the setting of acute resp failure. Chest CTA and BLE Dopplers neg. Cont SQ Lovenox. K repletion underway as per Primary. Echo pending. Will consider ischemic eval when clinically stable. Pt seen in conjunction with Dr. Faustin, who agrees with the assessment and plan of care. - Patient Problems (1) Acute and chronic respiratory failure ([id number]) Current Visit: Yes Status: Acute (2) Pneumonia Current Visit: Yes Status: Acute (3) Sepsis Current Visit: Yes Status: Acute (4) NSTEMI (non-ST elevated myocardial infarction) Current Visit: Yes Status: Acute Plan to address problem: suspect Type 2 (5) Elevated d-dimer Current Visit: Yes Status: Acute (6) Hypokalemia Current Visit: Yes Status: Acute (7) ALS (amyotrophic lateral sclerosis) Current Visit: Yes Status: Chronic (8) ETOH abuse Current Visit: Yes Status: Chronic
[2020-02-26] MEDS ORDERED: SODIUM BICARB 8.4% 50 MEQ/50 ML SYRINGE IV ONE (15:33)
[2020-02-26] MEDS ORDERED: DOPamine/D5W 800 MG/250 ML DRIP IV ONE (15:33)
[2020-02-26] MEDS ORDERED: EPINEPHrine 1 MG/10 ML SYRINGE ONE (15:33)
[2020-02-26] MEDS ORDERED: ATROPINE 0.1% (1 MG/10 ML) CARDIAC SYRINGE ONE ×2 (15:33→15:36)
[2020-02-26] MEDS ORDERED: DOPamine/D5W 800 MG/250 ML 800 MG/250 ML BAG IV SCH (16:00)
--- NOTE | 2020-02-26 16:35 | Procedure Note ---
Date of procedure: 02/26/20 Pre-op diagnosis: Acute respiratory failure, pneumonia Post-op diagnosis: same Procedure: Right internal jugular vein triple-lumen catheter placement under ultrasound guidance. The patient was prepped and draped in the usual sterile fashion. A timeout was taken to identify the correct patient, correct procedure and correct operative site. Ultrasound was used to identify the right internal jugular vein. The Seldinger technique was utilized to access the right internal jugular vein without difficulty. Local anesthesia was obtained with 1% lidocaine. A seeker needle was then advanced into the right internal jugular vein under ultrasound guidance without difficulty. A guidewire was then passed through the seeker needle into the right internal jugular vein without difficulty. The seeker needle was then removed over the guidewire and a scalpel was used to incise the skin at the insertion site. A dilator was then passed over the guidewire and subsequently removed. A preflushed triple-lumen catheter was then advanced into the right internal jugular vein without difficulty and the guidewire subsequently removed. All 3 ports flush and draw with ease. The triple-lumen catheter was then sewn in place. A Biopatch was placed at the insertion site. Chest x-ray postoperatively did not reveal pneumothorax and triple-lumen in place at the SVC junction. Estimated blood loss minimal complications none. Anesthesia: local Estimated blood loss: minimal Pathology: none Condition: critical Disposition: ICU
--- NOTE | 2020-02-26 16:35 | Event Note ---
Date: 02/26/20 A CODE SANNA was called. I presented to the patient's bedside. The patient was found to be an asystolic arrest secondary to ventricular fibrillation. The patient was treated in accordance with ACLS protocol with return of perfusing rhythm. Patient medically optimized. 60 minutes critical care time dedicated to patient care.
--- NOTE | 2020-02-26 16:54 | XRay Report ---
CHEST 1 VIEW INDICATION / CLINICAL INFORMATION: ET tube and Dobbhoff tube placement, central line placement. COMPARISON: 02/24/2020 FINDINGS: SUPPORT DEVICES: ET tube is present. The tip is within the proximal right mainstem bronchus. I would suggest withdrawing the tube approximately 3 cm. Feeding tube is present. The tip is well positioned within the midportion of the stomach. Right IJ central line has been placed with the tip in the SVC. HEART / MEDIASTINUM: No significant abnormality. LUNGS / PLEURA: Previously noted bilateral pulmonary opacities persist but have shown definite improv ement. No pneumothorax. ADDITIONAL FINDINGS: There is prominent gaseous distention of the stomach. IMPRESSION: 1. ET tube tip is within the right mainstem bronchus and should be withdrawn approximately 3 cm. 2. Central line and feeding tube are in appropriate position. 3. Improving bilateral pulmonary opacities. Signer Name: Rosita Wahl MD Signed: 02/26/2020 4:50 PM Workstation Name: [id number]
[2020-02-26] MEDS ORDERED: SODIUM CHLORIDE 0.9% 1000 ML 1,000 ML IV ONE (17:00)
[2020-02-26] MEDS: ENOXAPARIN 40 MG/0.4 ML INJ SUB-Q SCH (21:35)
--- NOTE | 2020-02-27 09:12 | Progress Note ---
Assessment and Plan Assessment and plan: --Acute hypoxic hypercapnic respiratory failure; Intubated on mechanical ventilation. Etiology secondary to sepsis, ALS, multifocal pneumonia (Covid negative). --ALS --Elevated D-dimers; CTA chest, lower extremity venous Doppler both are negative Lovenox DVT prophylaxis --Bilateral pneumonia; probably community-acquired Versus atypical, empiric antibiotics Rocephin and Zithromax Cultures, check pro calcitonin --Sepsis secondary to pneumonia Leukocytosis, tachycardia, pneumonia on chest x-ray --Elevated troponin; Serial cardiac enzymes, serial EKGs Echocardiogram, cardiology consult if needed --Hypokalemia; replaced with KCl Monitor levels --Hyponatremia; IV fluids Closely monitor electrolytes --DVT prophylaxis; Lovenox Admit to ICU for close observation 02/25/2020. CTA of the chest reveals no PE but does illustrate the bilateral pneumonia. Doppler ultrasound also negative for DVT. Blood cultures are pending. Await COVID-19 testing. Patient currently requiring BiPAP IPAP 24/E PAP 6 with FiO2 of 25%. Continue O2 and BiPAP as clinically indicated. ID and pulmonary consulted. 02/26/2020. Blood cultures are negative x48 hours and Covid testing negative as well. Continue antibiotics per ID recommendations for community-acquired bilateral pneumonia. Cardiology consultation for elevated troponin. Check echocardiogram. 02/27/2020. Events of yesterday noted with asystole following V. fib arrest. Patient currently on AC mode rate 20, tidal volume 400, FiO2 50% and a PEEP of 6. Follow-up echocardiogram for elevated troponin. Cardiology suspects NSTEMI Type 2 in the setting of acute resp failure. Chest CTA and BLE Dopplers neg. we will discontinue Decadron given the Covid PCR is negative. The high probability of a clinically significant, sudden or life threatening deterioration of the [cardiac and respiratory] system(s) required my full and direct attention, intervention and personal management. The aggregate critical care time was [33] minutes. This time is in addition to time spent performing reported procedures but includes the following: [x] Data Review and interpretation [x] Patient assessment and monitoring of vital signs [x] Documentation [x] Medication orders and management History Interval history: 59-year-old male patient with significant past medical history of ALS, presented to ED with worsening shortness of breath since the morning [employer]. Patient was on a trilogy machine for breathing 18/11. EMS arrived, patient had O2 sats in the 80s. EMS attempted to place patient on their CPAP machine, however patient did not tolerate. Patient was admitted to the ICU with diagnosis of acute hypoxic respiratory failure and placed on BiPAP. Patient initially tolerated but later deteriorated with respiratory status. Therefore, patient was intubated on 02/26/2020 at 1500. Patient now on mechanical ventilation in the ICU. Hospitalist Physical - Constitutional Vitals: Temp Pulse Resp BP Pulse Ox 98.0 F 115 H 18 149/88 97 02/27/20 04:00 02/27/20 08:07 02/27/20 07:00 02/27/20 08:07 02/27/20 08:07 General appearance: Present: no acute distress, other (Intubated on mechanical ventilation) - EENT Eyes: Present: PERRL, EOM intact ENT: hearing intact, clear oral mucosa, dentition normal - Neck Neck: Present: supple, normal ROM - Respiratory Respiratory effort: normal Respiratory: bilateral: CTA - Cardiovascular Rhythm: regular Heart Sounds: Present: S1 & S2. Absent: gallop, rub - Extremities Extremities: no ischemia, No edema, Full ROM - Abdominal General gastrointestinal: soft, non-tender, non-distended, normal bowel sounds - Integumentary Integumentary: Present: clear, warm, dry - Neurologic Neurologic: CNII-XII intact, moves all extremities HEART Score - HEART Score Troponin: Troponin T 0.034 ng/mL (0.00-0.029) H D 02/24/20 19:35 Results - Labs CBC & Chem 7: 02/25/20 04:00 02/25/20 04:00 Labs: Laboratory Last Values WBC 22.9 K/mm3 (4.5-11.0) H 02/25/20 04:00 RBC 4.49 M/mm3 (3.65-5.03) 02/25/20 04:00 Hgb 12.3 gm/dl (11.8-15.2) 02/25/20 04:00 Hct 37.4 % (35.5-45.6) 02/25/20 04:00 MCV 83 fl (84-94) L 02/25/20 04:00 MCH 27 pg (28-32) L 02/25/20 04:00 MCHC 33 % (32-34) 02/25/20 04:00 RDW 15.2 % (13.2-15.2) 02/25/20 04:00 Plt Count 468 K/mm3 (140-440) H 02/25/20 04:00 Add Manual Diff Complete 02/25/20 04:00 Total Counted 100 02/25/20 04:00 Seg Neutrophils % Channel Supervisor 02/25/20 04:00 Seg Neuts % (Manual) 89.0 % (40.0-70.0) H 02/25/20 04:00 Band Neutrophils % 1.0 % 02/25/20 04:00 Lymphocytes % (Manual) 7.0 % (13.4-35.0) L 02/25/20 04:00 Reactive Lymphs % (Man) 0 % 02/25/20 04:00 Monocytes % (Manual) 3.0 % (0.0-7.3) 02/25/20 04:00 Eosinophils % (Manual) 0 % (0.0-4.3) 02/25/20 04:00 Basophils % (Manual) 0 % (0.0-1.8) 02/25/20 04:00 Metamyelocytes % 0 % 02/25/20 04:00 Myelocytes % 0 % 02/25/20 04:00 Promyelocytes % 0 % 02/25/20 04:00 Blast Cells % 0 % 02/25/20 04:00 Nucleated RBC % Not Reportable 02/25/20 04:00 Seg Neutrophils # Man 20.4 K/mm3 (1.8-7.7) H 02/25/20 04:00 Band Neutrophils # 0.2 K/mm3 02/25/20 04:00 Lymphocytes # (Manual) 1.6 K/mm3 (1.2-5.4) 02/25/20 04:00 Abs React Lymphs (Man) 0.0 K/mm3 02/25/20 04:00 Monocytes # (Manual) 0.7 K/mm3 (0.0-0.8) 02/25/20 04:00 Eosinophils # (Manual) 0.0 K/mm3 (0.0-0.4) 02/25/20 04:00 Basophils # (Manual) 0.0 K/mm3 (0.0-0.1) 02/25/20 04:00 Metamyelocytes # 0.0 K/mm3 02/25/20 04:00 Myelocytes # 0.0 K/mm3 02/25/20 04:00 Promyelocytes # 0.0 K/mm3 02/25/20 04:00 Blast Cells # 0.0 K/mm3 02/25/20 04:00 WBC Morphology Not Reportable 02/25/20 04:00 Hypersegmented Neuts Not Reportable 02/25/20 04:00 Hyposegmented Neuts Not Reportable 02/25/20 04:00 Hypogranular Neuts Not Reportable 02/25/20 04:00 Smudge Cells Not Reportable 02/25/20 04:00 Toxic Granulation Not Reportable 02/25/20 04:00 Toxic Vacuolation Not Reportable 02/25/20 04:00 Dohle Bodies Not Reportable 02/25/20 04:00 Pelger-Huet Anomaly Not Reportable 02/25/20 04:00 Robert Rods Not Reportable 02/25/20 04:00 Platelet Estimate Consistent w auto 02/25/20 04:00 Clumped Platelets Not Reportable 02/25/20 04:00 Plt Clumps, EDTA Not Reportable 02/25/20 04:00 Large Platelets Not Reportable 02/25/20 04:00 Giant Platelets Not Reportable 02/25/20 04:00 Platelet Satelliting Not Reportable 02/25/20 04:00 Plt Morphology Comment Not Reportable 02/25/20 04:00 RBC Morphology Not Reportable 02/25/20 04:00 Dimorphic RBCs Not Reportable 02/25/20 04:00 Polychromasia Not Reportable 02/25/20 04:00 Hypochromasia Not Reportable 02/25/20 04:00 Poikilocytosis Not Reportable 02/25/20 04:00 Anisocytosis Not Reportable 02/25/20 04:00 Microcytosis Not Reportable 02/25/20 04:00 Macrocytosis Not Reportable 02/25/20 04:00 Spherocytes Not Reportable 02/25/20 04:00 Pappenheimer Bodies Not Reportable 02/25/20 04:00 Sickle Cells Not Reportable 02/25/20 04:00 Target Cells Not Reportable 02/25/20 04:00 Tear Drop Cells Not Reportable 02/25/20 04:00 Ovalocytes Not Reportable 02/25/20 04:00 Helmet Cells Not Reportable 02/25/20 04:00 [place] Bodies Not Reportable 02/25/20 04:00 [place] Rings Not Reportable 02/25/20 04:00 Riaz Cells Not Reportable 02/25/20 04:00 Bite Cells Not Reportable 02/25/20 04:00 Crenated Cell Not Reportable 02/25/20 04:00 Elliptocytes Not Reportable 02/25/20 04:00 Acanthocytes (Spur) Not Reportable 02/25/20 04:00 Rouleaux Not Reportable 02/25/20 04:00 Hemoglobin C Crystals Not Reportable 02/25/20 04:00 Schistocytes Not Reportable 02/25/20 04:00 Malaria parasites Not Reportable 02/25/20 04:00 [place] Bodies Not Reportable 02/25/20 04:00 Hem Pathologist Commnt No 02/25/20 04:00 PT 15.6 Sec. (12.2-14.9) H 02/24/20 09:19 INR 1.21 (0.87-1.13) H 02/24/20 09:19 APTT 25.4 Sec. (24.2-36.6) 02/24/20 09:19 D-Dimer 1311.96 ng/mlDDU (0-234) H 02/24/20 09:19 ABG pH 7.524 (7.320-7.450) H 02/27/20 05:00 POC ABG pCO2 33.4 mmHg (32.0-48.0) 02/27/20 05:00 ABG pCO2 37.3 mm Hg 02/24/20 13:45 POC ABG pO2 97.7 mmHg (83-108) 02/27/20 05:00 ABG pO2 75.1 mm Hg (80.0-90.0) L 02/24/20 13:45 POC ABG HCO3 26.9 02/27/20 05:00 ABG HCO3 18.0 mmol/L (20.0-26.0) L 02/24/20 13:45 ABG O2 Saturation 95.0 % (95.0-99.0) 02/24/20 13:45 ABG O2 Content 15.6 (0.0-44) 02/24/20 13:45 POC ABG Base Excess 4.4 02/27/20 05:00 ABG Base Excess -7.8 mmol/L (-2.0-3.0) L 02/24/20 13:45 ABG Hemoglobin 13.3 (12.0-17.5) 02/27/20 05:00 ABG Oxyhemoglobin 99.2 (94-98) H 02/26/20 17:00 ABG Carboxyhemoglobin 1.8 % (0.0-5.0) 02/24/20 13:45 ABG Methemoglobin 0 (0.0-1.5) 02/26/20 17:00 ABG Sodium 141.8 mmol/L (136.0-145.0) 02/27/20 05:00 ABG Potassium 3.0 mmol/L (3.40-4.50) L 02/27/20 05:00 ABG Chloride 105.0 mmol/L (98-107) 02/27/20 05:00 ABG Glucose 143 mg/dL (65-95) H 02/27/20 05:00 Oxyhemoglobin 92.7 % (95.0-99.0) L 02/24/20 13:45 Carboxyhemoglobin 0.4 (0.5-1.5) L 02/26/20 17:00 FiO2 50.0 02/27/20 05:00 Sodium 142 mmol/L (137-145) D 02/25/20 04:00 Potassium 3.2 mmol/L (3.6-5.0) L 02/25/20 04:00 Chloride 100.1 mmol/L (98-107) 02/25/20 04:00 Carbon Dioxide 18 mmol/L (22-30) L 02/25/20 04:00 Anion Gap 27 mmol/L 02/25/20 04:00 BUN 11 mg/dL (9-20) 02/25/20 04:00 Creatinine 0.2 mg/dL (0.8-1.3) L 02/25/20 04:00 Estimated GFR > 60 ml/min 02/25/20 04:00 BUN/Creatinine Ratio 55 % 02/25/20 04:00 Glucose 114 mg/dL (75-100) H 02/25/20 04:00 POC Glucose 154 mg/dL (70-105) H 02/27/20 07:04 Lactic Acid 1.00 mmol/L (0.7-2.0) 02/24/20 12:07 Calcium 9.1 mg/dL (8.4-10.2) 02/25/20 04:00 Magnesium 2.30 mg/dL (1.7-2.3) 02/25/20 04:00 Ferritin 1715.0 ng/mL (30.0-300.0) H 02/24/20 10:01 Total Bilirubin 0.80 mg/dL (0.1-1.2) 02/25/20 04:00 AST 17 units/L (5-40) 02/25/20 04:00 ALT 21 units/L (7-56) 02/25/20 04:00 Alkaline Phosphatase 105 units/L (35-129) 02/25/20 04:00 Lactate Dehydrogenase 303 units/L (91-180) H 02/24/20 09:19 Total Creatine Kinase 101 units/L (55-170) 02/24/20 19:35 CK-MB (CK-2) 3.5 ng/mL (0.0-4.0) 02/24/20 19:35 CK-MB (CK-2) Rel Index 3.4 (0-4) 02/24/20 19:35 Troponin T 0.034 ng/mL (0.00-0.029) H D 02/24/20 19:35 C-Reactive Protein 26.10 mg/dL (0.00-1.30) H 02/24/20 09:19 NT-Pro-B Natriuret Pep 48.30 pg/mL (0-900) 02/24/20 09:19 Total Protein 6.5 g/dL (6.3-8.2) 02/25/20 04:00 Albumin 3.5 g/dL (3.9-5) L 02/25/20 04:00 Albumin/Globulin Ratio 1.2 % 02/25/20 04:00 Triglycerides 60 mg/dL (2-149) 02/24/20 09:19 Cholesterol 104 mg/dL (50-199) 02/24/20 09:19 LDL Cholesterol Direct 41 mg/dL (50-130) L 02/24/20 09:19 HDL Cholesterol 45 mg/dL (40-59) 02/24/20 09:19 Cholesterol/HDL Ratio 2.31 % 02/24/20 09:19 Procalcitonin 1.13 ng/mL (<0.15) 02/24/20 09:19 Arterial Blood Glucose 143 mg/dL (65-95) H 02/27/20 05:00 Arterial Blood Ionized Calcium 4.7 mg/dL (4.6-5.3) 02/27/20 05:00 Coronavirus (PCR) Negative (Negative) 02/25/20 09:03 Microbiology: Microbiology 02/24/20 09:19 Peripheral/Venous Blood Culture - Preliminary NO GROWTH AFTER 48 HOURS 02/24/20 09:19 Peripheral/Venous Blood Culture - Preliminary NO GROWTH AFTER 48 HOURS Reardon/IV: Voiding Method Condom Catheter IV Catheter Type [Right Triple Lumen Cath Internal Jugular] IV Catheter Type [Left Forearm INT / Saline Lock ] IV Catheter Type [Right Triple Lumen Cath Femoral] IV Catheter Type [Right Peripheral IV Antecubital] Active Medications - Current Medications Current Medications: Generic Name Dose Route Start Last Admin Trade Name Freq PRN Reason Stop Dose Admin Acetaminophen 650 mg 02/24/20 15:13 Tylenol PO Q4H PRN Pain, Mild (1-3) Albuterol 2.5 mg 02/24/20 15:13 Proventil IH Q4HRT PRN Shortness Of Breath Lipase/Protease/Amylase 1 each 02/26/20 11:[address] 10,500 Unit FEEDTUBE PRN PRN For Clogged Feeding Tube Dexamethasone 6 mg 02/24/20 19:00 02/26/20 10:34 Decadron IV 03/04/20 10:01 6 mg DAILY ALISA Administration Enoxaparin Sodium 40 mg 02/24/20 22:00 02/26/20 21:35 Enoxaparin SUB-Q 40 mg QDAY@2200 AILSA Administration Protocol Azithromycin 500 mg/ Sodium 250 mls @ 250 mls/hr 02/25/20 10:00 02/26/20 10:34 Chloride IV 02/27/20 10:59 250 mls/hr Q24HR ALISA Administration Protocol Ceftriaxone Sodium 2 gm in 100 mls @ 200 mls/hr 02/25/20 10:00 02/26/20 10:34 Rocephin/Ns 2 Gm/100 Ml IV 02/29/20 10:29 200 mls/hr Q24HR ALISA Administration Protocol Dopamine HCl/Dextrose 800 mg in 250 mls @ 3.338 mls/hr 02/26/20 16:00 02/26/20 17:11 Intropin Drip 800 Mg/D5w 250 Ml IV 0 mcg/kg/min TITR ALISA 0 mls/hr Titration Protocol 2 MCG/KG/MIN Metoprolol Tartrate 12.5 mg 02/24/20 22:00 02/26/20 21:34 Metoprolol PO 12.5 mg BID ALISA Administration Pantoprazole Sodium 40 mg 02/25/20 10:00 02/26/20 10:34 Protonix IV 40 mg QDAY ALISA Administration Simple Syrup 15 ml 02/26/20 11:16 Simple Syrup FEEDTUBE PRN PRN Hypoglycemia Simple Syrup 30 ml 02/26/20 11:16 Simple Syrup FEEDTUBE PRN PRN Hypoglycemia Sodium Bicarbonate 325 mg 02/26/20 11:16 Sodium Bicarbonate FEEDTUBE PRN PRN For Clogged Feeding Tube Nutrition/Malnutrition Assess - Dietary Evaluation Nutrition/Malnutrition Findings: Nutrition Notes Start: 02/26/20 10:40 Freq: Status: Active Protocol: Document 02/26/20 10:41 LM (Rec: 02/26/20 10:47 LM [email or web address]) Nutrition Notes Need for Assessment generated from: MD Order,tub chucker Initial or Follow up Assessment Current Diagnosis Decubitus(Pressure Ulcer), Sepsis,Respiratory Failure Other Pertinent Diagnosis Suspected COVID-19, pneumonia, Hip/buttock PU Current Diet TF Labs/Tests K 3.2 Pertinent Medications Decadron KCl at 100ml/hr Height 6 ft Weight 89 kg [place] Body Weight (kg) 80.90 BMI 26.6 Weight Status Overweight Subjective/Other Information MD consult for TF. RN screen for skin risk. Santy score is 12. Pt has hip and buttock PUs. Unable to speak to pt. Pt is on bipap and refused 2 meals yesterday per chart. Burn Absent Trauma Absent Current % PO Poor (25-49%) Minimum of two criteria No physical signs of malnutrition #2 Nutrition Diagnosis Inadequate oral intake Etiology Suspected COVID-19, chronic illness As Evidenced by Signs and Symptoms Pt requiring TF, refusing meals #1 Nutrition Diagnosis Increased nutrient needs ( specify in comment below) Comments: Protein Etiology Wound healing As Evidenced by Signs and Symptoms Pt has buttock and hip PUs Is patient on ventilator? No Is Patient Ambulatory and/or Out of Bed No REE-([facility]-confined to bed) Calculation Used for Recommendations [facility] Additional Notes Protein: 111-134g (1.25-1.5g/ kg) Fluid: 1ml/kcal Nutrition Intervention Change Diet Order: TF Nutrition Support: Osmolite 1.5 at 60ml/hr Flush 180ml q4h Kcal 2,160 Protein (gm) 90 Fluid (mL) 1,097 Add Supplement/Snack (indicate name/kcal Will BID /protein ) Goal #1 Meet at least 80% of energy and protein needs Goal #2 Wound healing Anticipated Discharge Needs: Unable to determine at this time Follow-Up By: 02/29/20 Additional Comments F/U for TF start/tolerance, Will
[2020-02-27] MEDS: PANTOPRAZOLE 40 MG INJ IV SCH (09:48)
[2020-02-27] MEDS: METOPROLOL TARTRATE 25 MG TAB PO SCH ×2 (09:48→22:22)
[2020-02-27] MEDS: AZITHROMYCIN 500 MG in SODIUM CHLORIDE 0.9% 250ML 250 ML IV SCH (09:49)
[2020-02-27] MEDS: cefTRIAXone/NS 2 GM/100 ML 2 GM/100 ML BAG IV SCH (09:49)
--- NOTE | 2020-02-27 11:06 | Progress Note ---
Assessment and Plan Patient on the vent has history of ALS with pneumonia minimal troponin release suggestive of non-STEMI type II. Get an echocardiogram. Treatment as per the primary care team for pneumonia and respiratory failure - Patient Problems (1) Acute on chronic respiratory failure with hypoxia and hypercapnia Current Visit: Yes Status: Acute (2) NSTEMI (non-ST elevated myocardial infarction) Current Visit: Yes Status: Acute Plan to address problem: type 2 (3) Pneumonia Current Visit: Yes Status: Acute Qualifiers: Pneumonia type: aspiration pneumonia Laterality: bilateral (4) ALS (amyotrophic lateral sclerosis) Current Visit: Yes Status: Chronic Subjective Date of service: 02/27/20 Principal diagnosis: Ac on Ch Hypercapnic & hypoxemic Resp Failure; Severe Sepsis; Jamar PNA; ALS Interval history: pt on vent and awake Objective Vital Signs Temp Pulse Pulse Resp BP Pulse Ox 02/27/20 10:00 100 H 18 127/84 99 02/27/20 09:48 90 123/82 02/27/20 09:00 96 H 18 126/82 98 02/27/20 08:07 115 H 149/88 97 02/27/20 08:00 110 H 110 H 18 136/90 92 02/27/20 07:00 98 H 18 130/83 92 02/27/20 06:00 91 H 20 109/82 91 02/27/20 05:00 105 H 20 121/94 97 02/27/20 04:27 98 H 02/27/20 04:06 93 H 110/82 97 02/27/20 04:00 98.0 F 99 H 98 H 20 124/86 97 02/27/20 03:00 101 H 20 118/83 97 02/27/20 02:00 85 20 116/77 97 02/27/20 01:00 EST 100 H 21 111/79 97 02/27/20 00:00 98.7 F 98 H 92 H 20 111/80 98 02/26/20 23:33 100 H 20 112/79 98 02/26/20 23:18 94 H 122/82 98 02/26/20 23:00 101 H 18 118/83 97 02/26/20 22:00 89 19 114/79 98 02/26/20 21:34 90 114/79 02/26/20 21:00 88 20 116/79 97 02/26/20 20:00 98.3 F 98 H 83 15 116/84 98 02/26/20 19:57 91 H 104/77 99 02/26/20 19:00 87 20 104/77 99 02/26/20 18:00 106 H 20 110/80 97 02/26/20 17:00 116 H 19 107/77 100 02/26/20 16:06 155 H 94/58 98 02/26/20 16:01 158 H 26 H 84/57 98 02/26/20 16:00 156 H 158 H 26 H 98 02/26/20 15:01 122 H 19 156/97 96 02/26/20 14:00 120 H 20 120/76 96 02/26/20 13:00 126 H 20 130/83 96 - Physical Examination HEENT: Positive: EOMI, Normocephaly Neck: Positive: neck supple, trachea midline. Negative: JVD/HJR Cardiac: Positive: Reg Rate and Rhythm Lungs: Positive: clear to auscultation Neuro: Positive: Other (unable to assess) Abdomen: Positive: Soft, Active Bowel Sounds. Negative: Tender Skin: Positive: Clear Musculoskeletal: No Fluid Collection Extremities: Present: upper extr. pulses, lower extr. pulses. Absent: edema - Imaging and Cardiology EKG: report reviewed, image reviewed Echo: pending - Telemetry EKG Rhythm: Sinus Rhythm - EKG Sinus rhythms and dysrhythmias: sinus tachycardia Repolarization changes or abnormalities: nonspecific abnormality, ST segment, and/or T wave - Allied health notes Allied health notes reviewed: nursing
[2020-02-27] MEDS ORDERED: POTASSIUM CHLORIDE ER 20 MEQ TAB PO ONE (11:30)
[2020-02-27 12:27] LABS: Blood Urea Nitrogen 12 mg/dL (9-20); Calcium 8.5 mg/dL (8.4-10.2); Hemolysis Index 50
[2020-02-27 12:28] LABS: BUN/Creatinine Ratio 60
[2020-02-27] MEDS ORDERED: POTASSIUM CHLORIDE 20 MEQ PACKET FEEDTUBE SCH ×2 (13:00→18:00)
[2020-02-27] MEDS: ACETAMINOPHEN 325 MG TAB PO PRN (13:00)
[2020-02-27] MEDS ORDERED: POTASSIUM CHLORIDE 20 MEQ PACKET FEEDTUBE ONE (13:00)
--- NOTE | 2020-02-27 14:43 | Progress Note ---
Assessment and Plan Acute on chronic hypoxemic-hypercapnic respiratory failure on MVS Sepsis secondary to multifocal Pneumonia History of ALS on Trilogy Multifocal pneumonia, possible element of aspiration PUI-COVID Acute toxic metabolic encephalopathy Elevated D-dimer Elevated troponin possibly type 2 ischemia Hypokalemia Hyponatremia Sacral decubitus - Wean vasopressor support for MAP >65 -Discontinue RIJ CVC once vasopresors are discontinued. -VAP bundle addressed -Adjust minute ventilation for better gas exchange, adjust tidal volumes -Lung protective strategies -Aspiration precautions, HOB >40 -Permissive hypercapnic is acceptable -CXR, ABG in am - Continue to wean supplemental oxygen for target O2 sats 88-90% -Oxygen restrictive strategies -Antibiotics, add coverage for anaerobes, possible aspiration- de-escalate as clinically indicated. Monitor for toxicities - conservative fluid management measures as tolerated by hemodynamics and renal function - Bronchodilators with pulmonary hygiene per RT - Accuchecks with glycemic control per SSI (While critically ill target blood glucose of 140-180 mg/dL; avoid hypoglycemia) - Avoid nephrotoxins, closely monitor renal function, dose all medications for renal function - Stress ulcer prophylaxis -Pantoprazole - VTE prophylaxis -Enoxaparin - Mobility protocol, off loading and skin assessment for pressure ulcer prevention -Wound care consult - Supportive transfusions as indicated to keep HgB >7g/dL -Keep potassium at 4, Magnesium at 2 and Phos at 2.5 to optimize respiratory muscle function Discussed with the ICU team-RT,RN, Life threatening condition- Sepsis secondary to multifocal pneumonia. Acute and chronic hypoxic and hypercapnic resp failure; ALS; PUI-COVID Mortality/Morbidity- High Complexity of medical decision making- High CONDITION: CRITICAL PROGNOSIS: GUARDED CODE STATUS: FULL CODE The high probability of a clinically significant, sudden or life-threatening deterioration of the [respiratory & neurology, renal ] system(s) required my full and direct attention, intervention and personal management. The aggregate critical care time was [35] minutes without overlap. Time includes spent on; [x] Data Review and interpretation [x] Patient assessment and monitoring of vital signs [x] Documentation [x] Medication orders and management Subjective Date of service: 02/27/20 Principal diagnosis: Ac on Ch Hypercapnic & hypoxemic Resp Failure; Severe Sepsis; Jamar PNA; ALS Interval history: Patient is seen today for: Acute on Chronic Hypercapnic & hypoxemic Respiratory Failure; Severe Sepsis with Shock; Bilateral Pneumonia (Possible aspiration); History of ALS on Trilogy; PUI-COVID; Acute toxic metabolic encephalopathy Seen and examined at bedside; 24hour events reviewed; nursing and respiratory care staff consulted; no adverse overnight events reported to me; resting in bed; respiratory arrest requiring oral intubation on MVS. He required dopamine f or hemodynamic support. RIJ CVC in place Awake and alert, mouthing words to make needs known, responsive and interactive; No N/V/F/C; denies acute pain ETT 8.0 at 23cm AC-VC 20/400/50%/+6 ABG 7.52/33.4/97.7/26.9 Objective Vital Signs - 12hr 02/27/20 02/27/20 02/27/20 03:00 04:00 04:06 Temperature 98.0 F Pulse Rate 101 H 99 H 93 H Pulse Rate [ 98 H From Monitor] Respiratory 20 20 Rate Blood Pressure 118/83 124/86 110/82 O2 Sat by Pulse 97 97 97 Oximetry 02/27/20 02/27/20 02/27/20 04:27 05:00 06:00 Temperature Pulse Rate 98 H 105 H 91 H Pulse Rate [ From Monitor] Respiratory 20 20 Rate Blood Pressure 121/94 109/82 O2 Sat by Pulse 97 91 Oximetry 02/27/20 02/27/20 02/27/20 07:00 08:00 08:07 Temperature 100.5 F H Pulse Rate 98 H 110 H 115 H Pulse Rate [ 110 H From Monitor] Respiratory 18 18 Rate Blood Pressure 130/83 136/90 149/88 O2 Sat by Pulse 92 92 97 Oximetry 02/27/20 02/27/20 02/27/20 09:00 09:48 10:00 Temperature Pulse Rate 96 H 90 100 H Pulse Rate [ From Monitor] Respiratory 18 18 Rate Blood Pressure 126/82 123/82 127/84 O2 Sat by Pulse 98 99 Oximetry 02/27/20 02/27/20 02/27/20 10:45 11:00 11:45 Temperature Pulse Rate 87 87 87 Pulse Rate [ From Monitor] Respiratory 7 L 18 Rate Blood Pressure 123/82 116/78 115/79 O2 Sat by Pulse 98 99 99 Oximetry 02/27/20 12:00 Temperature 100.5 F H Pulse Rate 88 Pulse Rate [ 88 From Monitor] Respiratory 14 Rate Blood Pressure 134/91 O2 Sat by Pulse 98 Oximetry Constitutional: alert, appears uncomfortable, other (thin middle aged male with mildly increased respiratory effort at rest on MVS, no asynchrony ) Eyes: non-icteric ENT: oropharynx dry, other (BIPAP FFM) Neck: supple, no lymphadenopathy, no JVD Effort: mildly labored Ascultation: Bilateral: diminished breath sounds, rhonchi (bases) Percussion: Bilateral: not dull Cardiovascular: regular rate and rhythm, other (S1,S2, no murmurs) Gastrointestinal: normoactive bowel sounds, soft, non-tender, non-distended Integumentary: normal, decubitus ulcer (see RN notes) Extremities: no cyanosis, no edema, pulses normal, other (atrophic looking limbs) Neurologic: pupils equal and round, other (motor strength in extremities 1-2/5) Psychiatric: mood appropriate, affect normal CBC and BMP: 03/02/20 09:47 03/02/20 09:47 ABG, PT/INR, D-dimer: ABG ABG pH 7.524 (7.320-7.450) H 02/27/20 05:00 POC ABG pCO2 33.4 mmHg (32.0-48.0) 02/27/20 05:00 ABG pCO2 37.3 mm Hg 02/24/20 13:45 POC ABG pO2 97.7 mmHg (83-108) 02/27/20 05:00 ABG pO2 75.1 mm Hg (80.0-90.0) L 02/24/20 13:45 POC ABG HCO3 26.9 02/27/20 05:00 ABG O2 Saturation 95.0 % (95.0-99.0) 02/24/20 13:45 PT/INR, D-dimer PT 15.6 Sec. (12.2-14.9) H 02/24/20 09:19 INR 1.21 (0.87-1.13) H 02/24/20 09:19 D-Dimer 1311.96 ng/mlDDU (0-234) H 02/24/20 09:19 Abnormal lab findings: Abnormal Labs 02/24/20 02/24/20 02/24/20 09:19 09:19 09:19 WBC 20.2 H RBC 5.05 H MCV MCH RDW 15.3 H Plt Count Seg Neuts % (Manual) 86.0 H Lymphocytes % (Manual) 1.0 L Seg Neutrophils # Man 17.4 H Lymphocytes # (Manual) 0.2 L PT 15.6 H INR 1.21 H D-Dimer 1311.96 H ABG pH POC ABG pO2 ABG pO2 ABG HCO3 ABG O2 Saturation ABG Base Excess ABG Hemoglobin ABG Oxyhemoglobin ABG Potassium ABG Glucose Oxyhemoglobin Carboxyhemoglobin Sodium 135 L Potassium 3.2 L Chloride 92.2 L Carbon Dioxide BUN 6 L Creatinine < 0.2 L Glucose 124 H POC Glucose Ferritin Total Bilirubin 2.30 H Alkaline Phosphatase 132 H Lactate Dehydrogenase Troponin T 0.080 H C-Reactive Protein Albumin 3.6 L LDL Cholesterol Direct 41 L Arterial Blood Glucose Arterial Blood Ionized Calcium 02/24/20 02/24/20 02/24/20 09:19 09:58 10:01 WBC RBC MCV MCH RDW Plt Count Seg Neuts % (Manual) Lymphocytes % (Manual) Seg Neutrophils # Man Lymphocytes # (Manual) PT INR D-Dimer ABG pH 7.176 L* POC ABG pO2 ABG pO2 91.2 H ABG HCO3 ABG O2 Saturation ABG Base Excess -4.6 L ABG Hemoglobin ABG Oxyhemoglobin ABG Potassium ABG Glucose Oxyhemoglobin 92.6 L Carboxyhemoglobin Sodium Potassium Chloride Carbon Dioxide BUN Creatinine Glucose POC Glucose Ferritin 1715.0 H Total Bilirubin Alkaline Phosphatase Lactate Dehydrogenase 303 H Troponin T C-Reactive Protein 26.10 H Albumin LDL Cholesterol Direct Arterial Blood Glucose Arterial Blood Ionized Calcium 02/24/20 02/24/20 02/24/20 11:52 13:45 19:35 WBC RBC MCV MCH RDW Plt Count Seg Neuts % (Manual) Lymphocytes % (Manual) Seg Neutrophils # Man Lymphocytes # (Manual) PT INR D-Dimer ABG pH 7.051 L* 7.300 L POC ABG pO2 ABG pO2 94.7 H 75.1 L ABG HCO3 18.0 L ABG O2 Saturation 93.5 L ABG Base Excess -6.8 L -7.8 L ABG Hemoglobin 13.2 L 11.9 L ABG Oxyhemoglobin ABG Potassium ABG Glucose Oxyhemoglobin 91.0 L 92.7 L Carboxyhemoglobin Sodium Potassium Chloride Carbon Dioxide BUN Creatinine Glucose POC Glucose Ferritin Total Bilirubin Alkaline Phosphatase Lactate Dehydrogenase Troponin T 0.034 H D C-Reactive Protein Albumin LDL Cholesterol Direct Arterial Blood Glucose Arterial Blood Ionized Calcium 02/25/20 02/25/20 02/25/20 04:00 04:00 12:26 WBC 22.9 H RBC MCV 83 L MCH 27 L RDW Plt Count 468 H Seg Neuts % (Manual) 89.0 H Lymphocytes % (Manual) 7.0 L Seg Neutrophils # Man 20.4 H Lymphocytes # (Manual) PT INR D-Dimer ABG pH POC ABG pO2 ABG pO2 ABG HCO3 ABG O2 Saturation ABG Base Excess ABG Hemoglobin ABG Oxyhemoglobin ABG Potassium 2.6 L ABG Glucose 142 H Oxyhemoglobin Carboxyhemoglobin Sodium Potassium 3.2 L Chloride Carbon Dioxide 18 L BUN Creatinine 0.2 L Glucose 114 H POC Glucose Ferritin Total Bilirubin Alkaline Phosphatase Lactate Dehydrogenase Troponin T C-Reactive Protein Albumin 3.5 L LDL Cholesterol Direct Arterial Blood Glucose 142 H Arterial Blood Ionized Calcium 02/26/20 02/26/20 02/26/20 15:58 17:00 23:43 WBC RBC MCV MCH RDW Plt Count Seg Neuts % (Manual) Lymphocytes % (Manual) Seg Neutrophils # Man Lymphocytes # (Manual) PT INR D-Dimer ABG pH 7.502 H POC ABG pO2 213.6 H ABG pO2 ABG HCO3 ABG O2 Saturation ABG Base Excess ABG Hemoglobin ABG Oxyhemoglobin 99.2 H ABG Potassium 2.9 L ABG Glucose 160 H Oxyhemoglobin Carboxyhemoglobin 0.4 L Sodium Potassium Chloride Carbon Dioxide BUN Creatinine Glucose POC Glucose 189 H 120 H Ferritin Total Bilirubin Alkaline Phosphatase Lactate Dehydrogenase Troponin T C-Reactive Protein Albumin LDL Cholesterol Direct Arterial Blood Glucose 160 H Arterial Blood Ionized Calcium 4.5 L 02/27/20 02/27/20 02/27/20 05:00 07:04 Unknown WBC RBC MCV MCH RDW Plt Count Seg Neuts % (Manual) Lymphocytes % (Manual) Seg Neutrophils # Man Lymphocytes # (Manual) PT INR D-Dimer ABG pH 7.524 H POC ABG pO2 ABG pO2 ABG HCO3 ABG O2 Saturation ABG Base Excess ABG Hemoglobin ABG Oxyhemoglobin ABG Potassium 3.0 L ABG Glucose 143 H Oxyhemoglobin Carboxyhemoglobin Sodium Potassium 2.9 L* Chloride Carbon Dioxide 33 H D BUN Creatinine < 0.2 L Glucose 157 H POC Glucose 154 H Ferritin Total Bilirubin Alkaline Phosphatase Lactate Dehydrogenase Troponin T C-Reactive Protein Albumin LDL Cholesterol Direct Arterial Blood Glucose 143 H Arterial Blood Ionized Calcium Allied health notes reviewed: RT
--- NOTE | 2020-02-27 21:07 | Event Note ---
Date: 02/27/20 Called to [id number] to exchange an ETT due to malfunctioning cuff. Respiratory and RN at bedside. Etomidate 20mg, Lido 100mg, Daniel 50mg given. Bugie used to exchange 8.0 ETT. Atraumatic placement. CO2 color change noted. CO2 device connected to patient accounts clerk. End vitals are: 87p, 97%, [id number], 18RR, 125/90.
--- NOTE | 2020-02-27 21:43 | XRay Report ---
CHEST 1 VIEW 2106 INDICATION / CLINICAL INFORMATION: ett placement COMPARISON: 02/26/2020 FINDINGS: SUPPORT DEVICES: Endotracheal tube is now seen projecting well into the right mainstem bronchus by ap proximately 2.7 cm. Withdrawal by probably 5 cm would be needed. Feeding tube is again seen. Right ce ntral line has been removed. HEART / MEDIASTINUM: Mediastinal shift to the left is seen LUNGS / PLEURA: There is now near total opacification of the left hemithorax with evidence of marked volume loss. Right lung field is well expanded and clear. No pneumothorax. ADDITIONAL FINDINGS: No significant additional findings. IMPRESSION: Endotracheal tube and right mainstem bronchus with near collapse of the left lung CRITICAL RESULT: Time of Discovery (MOTOR VEHICLE TECHNICIAN/CDT): 2033 Time of Communication (MOTOR VEHICLE TECHNICIAN/CDT): 2036 Licensed Practitioner Receiving Report: Rosita in CCU Read-Back Performed: Yes. Signer Name: Pasquale Álvarez MD Signed: 02/27/2020 9:39 PM Workstation Name: [id number]
[2020-02-27] MEDS: ENOXAPARIN 40 MG/0.4 ML INJ SUB-Q SCH (22:21)
[2020-02-28 05:18] LABS: Basophils % (Auto) 0.1 % (0.0-1.8); Hematocrit 40.2 % (35.5-45.6); Hemoglobin 13.2 gm/dl (11.8-15.2); Lymphocytes # (Auto) 1.6 K/mm3 (1.2-5.4); Lymphocytes % (Auto) 8.7 % (13.4-35.0); Mean Corpuscular HGB Conc 33 % (32-34); Mean Corpuscular Volume 84 fl (84-94); Monocytes # (Auto) 1.2 K/mm3 (0.0-0.8); Monocytes % (Auto) 6.6 % (0.0-7.3); Platelet Count 408 K/mm3 (140-440); Red Blood Count 4.79 M/mm3 (3.65-5.03); Red Cell Distribution Width 14.9 % (13.2-15.2)
[2020-02-28 05:36] LABS: Blood Urea Nitrogen 13 mg/dL (9-20); Calcium 8.7 mg/dL (8.4-10.2); Hemolysis Index 2
[2020-02-28 05:39] LABS: BUN/Creatinine Ratio 65
[2020-02-28 06:12] LABS: ABG Base Excess 8.3 mmol/L (-2.0-3.0); ABG HCO3 34.1 mmol/L (20.0-26.0); ABG Methemoglobin 0.7 % (0.0-1.5); ABG Oxygen Saturation 98.7 % (95.0-99.0); ABG PCO2 51.7 mm Hg; ABG PH 7.438 pH Units (7.350-7.450); ABG PO2 142.9 mm Hg (80.0-90.0)
[2020-02-28] MEDS: METOPROLOL TARTRATE 25 MG TAB PO SCH ×2 (09:16→21:37)
[2020-02-28] MEDS: LANSOPRAZOLE 30 MG SOLUTAB FEEDTUBE SCH (09:16)
[2020-02-28] MEDS: cefTRIAXone/NS 2 GM/100 ML 2 GM/100 ML BAG IV SCH (09:17)
[2020-02-28] MEDS: AZITHROMYCIN 500 MG in SODIUM CHLORIDE 0.9% 250ML 250 ML IV SCH (09:17)
[2020-02-28] MEDS: ACETAMINOPHEN 325 MG TAB PO PRN (09:18)
--- NOTE | 2020-02-28 09:56 | Progress Note ---
Assessment and Plan Assessment and plan: --Acute hypoxic hypercapnic respiratory failure; Intubated on mechanical ventilation. Etiology secondary to sepsis, ALS, multifocal pneumonia (Covid negative). --ALS --Elevated D-dimers; CTA chest, lower extremity venous Doppler both are negative Lovenox DVT prophylaxis --Bilateral pneumonia; probably community-acquired Versus atypical, empiric antibiotics Rocephin and Zithromax Cultures, check pro calcitonin --Sepsis secondary to pneumonia Leukocytosis, tachycardia, pneumonia on chest x-ray --Elevated troponin; Serial cardiac enzymes, serial EKGs Echocardiogram, cardiology consult if needed --Hypokalemia; replaced with KCl Monitor levels --Hyponatremia; IV fluids Closely monitor electrolytes --DVT prophylaxis; Lovenox Admit to ICU for close observation 02/25/2020. CTA of the chest reveals no PE but does illustrate the bilateral pneumonia. Doppler ultrasound also negative for DVT. Blood cultures are pending. Await COVID-19 testing. Patient currently requiring BiPAP IPAP 24/E PAP 6 with FiO2 of 25%. Continue O2 and BiPAP as clinically indicated. ID and pulmonary consulted. 02/26/2020. Blood cultures are negative x48 hours and Covid testing negative as well. Continue antibiotics per ID recommendations for community-acquired bilateral pneumonia. Cardiology consultation for elevated troponin. Check echocardiogram. 02/27/2020. Events of yesterday noted with asystole following V. fib arrest. Patient currently on AC mode rate 20, tidal volume 400, FiO2 50% and a PEEP of 6. Follow-up echocardiogram for elevated troponin. Cardiology suspects NSTEMI Type 2 in the setting of acute resp failure. Chest CTA and BLE Dopplers neg. we will discontinue Decadron given the Covid PCR is negative. 02/28/2020. I spoke with the sister Felisa Eli who is the power of compliance attorney regarding advanced directives and she instructed me that she would like to continue with aggressive care at this time. I informed her of the guarded prognosis and high mortality/morbidity and she voiced understanding. Patient currently with AC mode ventilation rate 18, tidal volume 400, FiO2 40% and a PEEP of 6. Continue antibiotics for pneumonia. ID previously consulted. Also consult neurology with regards to ALS. The high probability of a clinically significant, sudden or life threatening deterioration of the [cardiac and respiratory] system(s) required my full and direct attention, intervention and personal management. The aggregate critical care time was [34] minutes. 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 Patient was on a trilogy machine for breathing 18/11. EMS arrived, patient had O2 sats in the 80s. EMS attempted to place patient on their CPAP machine, however patient did not tolerate. Patient was admitted to the ICU with diagnosis of acute hypoxic respiratory failure and placed on BiPAP. Patient initially tolerated but later deteriorated with respiratory status. Therefore, patient was intubated on 02/26/2020 at 1500. Patient now on mechanical ventilation in the ICU. Hospitalist Physical - Constitutional Vitals: Temp Pulse Resp BP Pulse Ox 100.1 F H 79 18 109/72 98 02/28/20 04:00 02/28/20 09:16 02/28/20 06:00 02/28/20 09:16 02/28/20 08:15 General appearance: Present: mild distress, other (Intubated on mechanical ventilation) - EENT Eyes: Present: PERRL, EOM intact ENT: hearing intact, clear oral mucosa, dentition normal - Neck Neck: Present: supple, normal ROM - Respiratory Respiratory effort: normal Respiratory: bilateral: CTA - Cardiovascular Rhythm: regular Heart Sounds: Present: S1 & S2. Absent: gallop, rub - Extremities Extremities: no ischemia, No edema, Full ROM - Abdominal General gastrointestinal: soft, non-tender, non-distended, normal bowel sounds - Integumentary Integumentary: Present: clear, warm, dry - Neurologic Neurologic: CNII-XII intact, moves all extremities HEART Score - HEART Score Troponin: Troponin T 0.034 ng/mL (0.00-0.029) H D 02/24/20 19:35 Results - Labs CBC & Chem 7: 02/28/20 04:15 02/28/20 04:15 Labs: Laboratory Last Values WBC 18.7 K/mm3 (4.5-11.0) H 02/28/20 04:15 RBC 4.79 M/mm3 (3.65-5.03) 02/28/20 04:15 Hgb 13.2 gm/dl (11.8-15.2) 02/28/20 04:15 Hct 40.2 % (35.5-45.6) 02/28/20 04:15 MCV 84 fl (84-94) 02/28/20 04:15 MCH 28 pg (28-32) 02/28/20 04:15 MCHC 33 % (32-34) 02/28/20 04:15 RDW 14.9 % (13.2-15.2) 02/28/20 04:15 Plt Count 408 K/mm3 (140-440) 02/28/20 04:15 Lymph % (Auto) 8.7 % (13.4-35.0) L 02/28/20 04:15 [place] % (Auto) 6.6 % (0.0-7.3) 02/28/20 04:15 Eos % (Auto) 0.0 % (0.0-4.3) 02/28/20 04:15 Baso % (Auto) 0.1 % (0.0-1.8) 02/28/20 04:15 Lymph # (Auto) 1.6 K/mm3 (1.2-5.4) 02/28/20 04:15 [place] # (Auto) 1.2 K/mm3 (0.0-0.8) H 02/28/20 04:15 Eos # (Auto) 0.0 K/mm3 (0.0-0.4) 02/28/20 04:15 Baso # (Auto) 0.0 K/mm3 (0.0-0.1) 02/28/20 04:15 Add Manual Diff Complete 02/25/20 04:00 Total Counted 100 02/25/20 04:00 Seg Neutrophils % 84.6 % (40.0-70.0) H 02/28/20 04:15 Seg Neuts % (Manual) 89.0 % (40.0-70.0) H 02/25/20 04:00 Band Neutrophils % 1.0 % 02/25/20 04:00 Lymphocytes % (Manual) 7.0 % (13.4-35.0) L 02/25/20 04:00 Reactive Lymphs % (Man) 0 % 02/25/20 04:00 Monocytes % (Manual) 3.0 % (0.0-7.3) 02/25/20 04:00 Eosinophils % (Manual) 0 % (0.0-4.3) 02/25/20 04:00 Basophils % (Manual) 0 % (0.0-1.8) 02/25/20 04:00 Metamyelocytes % 0 % 02/25/20 04:00 Myelocytes % 0 % 02/25/20 04:00 Promyelocytes % 0 % 02/25/20 04:00 Blast Cells % 0 % 02/25/20 04:00 Nucleated RBC % Not Reportable 02/25/20 04:00 Seg Neutrophils # 15.9 K/mm3 (1.8-7.7) H 02/28/20 04:15 Seg Neutrophils # Man 20.4 K/mm3 (1.8-7.7) H 02/25/20 04:00 Band Neutrophils # 0.2 K/mm3 02/25/20 04:00 Lymphocytes # (Manual) 1.6 K/mm3 (1.2-5.4) 02/25/20 04:00 Abs React Lymphs (Man) 0.0 K/mm3 02/25/20 04:00 Monocytes # (Manual) 0.7 K/mm3 (0.0-0.8) 02/25/20 04:00 Eosinophils # (Manual) 0.0 K/mm3 (0.0-0.4) 02/25/20 04:00 Basophils # (Manual) 0.0 K/mm3 (0.0-0.1) 02/25/20 04:00 Metamyelocytes # 0.0 K/mm3 02/25/20 04:00 Myelocytes # 0.0 K/mm3 02/25/20 04:00 Promyelocytes # 0.0 K/mm3 02/25/20 04:00 Blast Cells # 0.0 K/mm3 02/25/20 04:00 WBC Morphology Not Reportable 02/25/20 04:00 Hypersegmented Neuts Not Reportable 02/25/20 04:00 Hyposegmented Neuts Not Reportable 02/25/20 04:00 Hypogranular Neuts Not Reportable 02/25/20 04:00 Smudge Cells Not Reportable 02/25/20 04:00 Toxic Granulation Not Reportable 02/25/20 04:00 Toxic Vacuolation Not Reportable 02/25/20 04:00 Dohle Bodies Not Reportable 02/25/20 04:00 Pelger-Huet Anomaly Not Reportable 02/25/20 04:00 Robert Rods Not Reportable 02/25/20 04:00 Platelet Estimate Consistent w auto 02/25/20 04:00 Clumped Platelets Not Reportable 02/25/20 04:00 Plt Clumps, EDTA Not Reportable 02/25/20 04:00 Large Platelets Not Reportable 02/25/20 04:00 Giant Platelets Not Reportable 02/25/20 04:00 Platelet Satelliting Not Reportable 02/25/20 04:00 Plt Morphology Comment Not Reportable 02/25/20 04:00 RBC Morphology Not Reportable 02/25/20 04:00 Dimorphic RBCs Not Reportable 02/25/20 04:00 Polychromasia Not Reportable 02/25/20 04:00 Hypochromasia Not Reportable 02/25/20 04:00 Poikilocytosis Not Reportable 02/25/20 04:00 Anisocytosis Not Reportable 02/25/20 04:00 Microcytosis Not Reportable 02/25/20 04:00 Macrocytosis Not Reportable 02/25/20 04:00 Spherocytes Not Reportable 02/25/20 04:00 Pappenheimer Bodies Not Reportable 02/25/20 04:00 Sickle Cells Not Reportable 02/25/20 04:00 Target Cells Not Reportable 02/25/20 04:00 Tear Drop Cells Not Reportable 02/25/20 04:00 Ovalocytes Not Reportable 02/25/20 04:00 Helmet Cells Not Reportable 02/25/20 04:00 [place] Bodies Not Reportable 02/25/20 04:00 [place] Rings Not Reportable 02/25/20 04:00 [place] Cells Not Reportable 02/25/20 04:00 Bite Cells Not Reportable 02/25/20 04:00 Crenated Cell Not Reportable 02/25/20 04:00 Elliptocytes Not Reportable 02/25/20 04:00 Acanthocytes (Spur) Not Reportable 02/25/20 04:00 Rouleaux Not Reportable 02/25/20 04:00 Hemoglobin C Crystals Not Reportable 02/25/20 04:00 Schistocytes Not Reportable 02/25/20 04:00 Malaria parasites Not Reportable 02/25/20 04:00 [place] Bodies Not Reportable 02/25/20 04:00 Hem Pathologist Commnt No 02/25/20 04:00 PT 15.6 Sec. (12.2-14.9) H 02/24/20 09:19 INR 1.21 (0.87-1.13) H 02/24/20 09:19 APTT 25.4 Sec. (24.2-36.6) 02/24/20 09:19 D-Dimer 1311.96 ng/mlDDU (0-234) H 02/24/20 09:19 ABG pH 7.438 pH Units (7.350-7.450) 02/28/20 05:39 POC ABG pCO2 33.4 mmHg (32.0-48.0) 02/27/20 05:00 ABG pCO2 51.7 mm Hg 02/28/20 05:39 POC ABG pO2 97.7 mmHg (83-108) 02/27/20 05:00 ABG pO2 142.9 mm Hg (80.0-90.0) H 02/28/20 05:39 POC ABG HCO3 26.9 02/27/20 05:00 ABG HCO3 34.1 mmol/L (20.0-26.0) H 02/28/20 05:39 ABG O2 Saturation 98.7 % (95.0-99.0) 02/28/20 05:39 ABG O2 Content 19.5 (0.0-44) 02/28/20 05:39 POC ABG Base Excess 4.4 02/27/20 05:00 ABG Base Excess 8.3 mmol/L (-2.0-3.0) H 02/28/20 05:39 ABG Hemoglobin 14.1 gm/dl (14.0-18.0) 02/28/20 05:39 ABG Oxyhemoglobin 99.2 (94-98) H 02/26/20 17:00 ABG Carboxyhemoglobin 1.1 % (0.0-5.0) 02/28/20 05:39 ABG Methemoglobin 0.7 % (0.0-1.5) 02/28/20 05:39 ABG Sodium 141.8 mmol/L (136.0-145.0) 02/27/20 05:00 ABG Potassium 3.0 mmol/L (3.40-4.50) L 02/27/20 05:00 ABG Chloride 105.0 mmol/L (98-107) 02/27/20 05:00 ABG Glucose 143 mg/dL (65-95) H 02/27/20 05:00 Oxyhemoglobin 97.0 % (95.0-99.0) 02/28/20 05:39 Carboxyhemoglobin 0.4 (0.5-1.5) L 02/26/20 17:00 FiO2 50 % 02/28/20 05:39 Sodium 151 mmol/L (137-145) H 02/28/20 04:15 Potassium 3.6 mmol/L (3.6-5.0) D 02/28/20 04:15 Chloride 106.2 mmol/L (98-107) 02/28/20 04:15 Carbon Dioxide 32 mmol/L (22-30) H 02/28/20 04:15 Anion Gap 16 mmol/L 02/28/20 04:15 BUN 13 mg/dL (9-20) 02/28/20 04:15 Creatinine 0.2 mg/dL (0.8-1.3) L 02/28/20 04:15 Estimated GFR > 60 ml/min 02/28/20 04:15 BUN/Creatinine Ratio 65 % 02/28/20 04:15 Glucose 167 mg/dL (75-100) H 02/28/20 04:15 POC Glucose 138 mg/dL (70-105) H 02/28/20 05:16 Lactic Acid 1.00 mmol/L (0.7-2.0) 02/24/20 12:07 Calcium 8.7 mg/dL (8.4-10.2) 02/28/20 04:15 Magnesium 2.30 mg/dL (1.7-2.3) 02/25/20 04:00 Ferritin 1715.0 ng/mL (30.0-300.0) H 02/24/20 10:01 Total Bilirubin 0.80 mg/dL (0.1-1.2) 02/25/20 04:00 AST 17 units/L (5-40) 02/25/20 04:00 ALT 21 units/L (7-56) 02/25/20 04:00 Alkaline Phosphatase 105 units/L (35-129) 02/25/20 04:00 Lactate Dehydrogenase 303 units/L (91-180) H 02/24/20 09:19 Total Creatine Kinase 101 units/L (55-170) 02/24/20 19:35 CK-MB (CK-2) 3.5 ng/mL (0.0-4.0) 02/24/20 19:35 CK-MB (CK-2) Rel Index 3.4 (0-4) 02/24/20 19:35 Troponin T 0.034 ng/mL (0.00-0.029) H D 02/24/20 19:35 C-Reactive Protein 26.10 mg/dL (0.00-1.30) H 02/24/20 09:19 NT-Pro-B Natriuret Pep 48.30 pg/mL (0-900) 02/24/20 09:19 Total Protein 6.5 g/dL (6.3-8.2) 02/25/20 04:00 Albumin 3.5 g/dL (3.9-5) L 02/25/20 04:00 Albumin/Globulin Ratio 1.2 % 02/25/20 04:00 Triglycerides 60 mg/dL (2-149) 02/24/20 09:19 Cholesterol 104 mg/dL (50-199) 02/24/20 09:19 LDL Cholesterol Direct 41 mg/dL (50-130) L 02/24/20 09:19 HDL Cholesterol 45 mg/dL (40-59) 02/24/20 09:19 Cholesterol/HDL Ratio 2.31 % 02/24/20 09:19 Procalcitonin 1.13 ng/mL (<0.15) 02/24/20 09:19 Arterial Blood Glucose 143 mg/dL (65-95) H 02/27/20 05:00 Arterial Blood Ionized Calcium 4.7 mg/dL (4.6-5.3) 02/27/20 05:00 Coronavirus (PCR) Negative (Negative) 02/25/20 09:03 Microbiology: Microbiology 02/26/20 17:40 Tracheal Aspirate Sputum Culture - Preliminary 02/24/20 09:19 Peripheral/Venous Blood Culture - Preliminary NO GROWTH AFTER 72 HOURS 02/24/20 09:19 Peripheral/Venous Blood Culture - Preliminary NO GROWTH AFTER 72 HOURS [place]/IV: Voiding Method Condom Catheter IV Catheter Type [Right INT / Saline Lock Forearm] IV Catheter Type [Right Triple Lumen Cath Internal Jugular] IV Catheter Type [Left Forearm INT / Saline Lock ] IV Catheter Type [Right Triple Lumen Cath Femoral] IV Catheter Type [Right Peripheral IV Antecubital] Active Medications - Current Medications Current Medications: Generic Name Dose Route Start Last Admin Trade Name Freq PRN Reason Stop Dose Admin Acetaminophen 650 mg 02/24/20 15:13 02/28/20 09:18 Tylenol PO 650 mg Q4H PRN Administration Pain, Mild (1-3) Albuterol 2.5 mg 02/24/20 15:13 Proventil IH Q4HRT PRN Shortness Of Breath Lipase/Protease/Amylase 1 each 02/26/20 11:[address] 10,500 Unit FEEDTUBE PRN PRN For Clogged Feeding Tube Enoxaparin Sodium 40 mg 02/24/20 22:00 02/27/20 22:21 Enoxaparin SUB-Q 40 mg QDAY@2200 ALISA Administration Protocol Ceftriaxone Sodium 2 gm in 100 mls @ 200 mls/hr 02/25/20 10:00 02/28/20 09:17 Rocephin/Ns 2 Gm/100 Ml IV 02/29/20 10:29 200 mls/hr Q24HR ALISA Administration Protocol Dopamine HCl/Dextrose 800 mg in 250 mls @ 3.338 mls/hr 02/26/20 16:00 02/26/20 17:11 Intropin Drip 800 Mg/D5w 250 Ml IV 0 mcg/kg/min TITR ALISA 0 mls/hr Titration Protocol 2 MCG/KG/MIN Azithromycin 500 mg/ Sodium 250 mls @ 250 mls/hr 02/28/20 10:00 02/28/20 09:17 Chloride IV 03/01/20 00:00 250 mls/hr Q24HR ALISA Administration Protocol Lansoprazole 30 mg 02/28/20 10:00 02/28/20 09:16 Prevacid Solutab FEEDTUBE 30 mg QDAY ALISA Administration Metoprolol Tartrate 12.5 mg 02/24/20 22:00 02/28/20 09:16 Metoprolol PO 12.5 mg BID ALISA Administration Simple Syrup 15 ml 02/26/20 11:16 Simple Syrup FEEDTUBE PRN PRN Hypoglycemia Simple Syrup 30 ml 02/26/20 11:16 Simple Syrup FEEDTUBE PRN PRN Hypoglycemia Sodium Bicarbonate 325 mg 02/26/20 11:16 Sodium Bicarbonate FEEDTUBE PRN PRN For Clogged Feeding Tube Nutrition/Malnutrition Assess - Dietary Evaluation Nutrition/Malnutrition Findings: Nutrition Notes Start: 02/26/20 10:40 Freq: Status: Active Protocol: Document 02/26/20 10:41 LM (Rec: 02/26/20 10:47 LM [id number]) Nutrition Notes Need for 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 RN screen for skin risk. Santy score is 12. Pt has hip and buttock PUs. Unable to speak to pt. Pt is on bipap and refused 2 meals yesterday per chart. Burn Absent Trauma Absent Current % PO Poor (25-49%) Minimum of two criteria No physical signs of malnutrition #2 Nutrition Diagnosis Inadequate oral intake Etiology Suspected COVID-19, chronic illness As Evidenced by Signs and Symptoms Pt requiring TF, refusing meals #1 Nutrition Diagnosis Increased nutrient needs ( specify in comment below) Comments: Protein Etiology Wound healing As Evidenced by Signs and Symptoms Pt has buttock and hip PUs Is patient on ventilator? No Is Patient Ambulatory and/or Out of Bed No REE-([facility]-confined to bed) 2095.196 Calculation Used for Recommendations [facility] Additional Notes Protein: 111-134g (1.25-1.5g/ kg) Fluid: 1ml/kcal Nutrition Intervention Change Diet Order: TF Nutrition Support: Osmolite 1.5 at 60ml/hr Flush 180ml q4h Kcal 2,160 Protein (gm) 90 Fluid (mL) 1,097 Add Supplement/Snack (indicate name/kcal Will BID /protein ) Goal #1 Meet at least 80% of energy and protein needs Goal #2 Wound healing Anticipated Discharge Needs: Unable to determine at this time Follow-Up By: 02/29/20 Additional Comments F/U for TF start/tolerance, Will
--- NOTE | 2020-02-28 11:03 | Progress Note ---
Assessment and Plan Cultures: Blood culture no growth today SARS CoV2 PCR negative Sputum culture with normal respiratory bernice. Assessment: 59 years old female with history of ALS with chronic respiratory failure on home trilogy BiPAP, admitted on 02/24/2020 due to worsening shortness of breath for 24 hours: #Severe sepsis: likely due to bilateral pneumonia. Remains with low-grade fever, leukocytosis likely due to high-dose steroid received initially. #Severe bilateral pneumonia: Likely community-acquired pneumonia. Procalcitonin elevated-1.13. CTA shows no PE but multifocal pneumonia with predominance left lower lobe. No DVT on US. Elevated D-dimer -1311. SARS-CoV-2 PCR negative. Sputum culture normal respiratory bernice. #Acute on chronic mixed respiratory failure: Intubated, re intubated overnight. #ALS Recommendations: -Continue ceftriaxone and azithromycin day 4 of 5 -repeat procalcitonin -Monitor fever Will follow Diana Maravilla MD Infectious Diseases Dialysis Tech [facility] M [phone] O [phone] Subjective Date of service: 02/28/20 Principal diagnosis: Ac on Ch Hypercapnic & hypoxemic Resp Failure; Severe Sepsis; Jamar PNA; ALS Interval history: Remains intubated, no fever, no acute event Objective - Exam Narrative Exam: General appearance: Intubated, alert follows commands Eyes: anicteric sclerae, moist conjunctivae; no lid-lag; PERRLA HENT: Normocephalic, Atraumatic; normal external ears, nares open, oropharynx limited, endotracheal tube in place, NG tube Neck: supple, tracheal midline, no JVD Lungs: Bilateral rhonchi CV: RRR no murmur Abdomen: Soft, non-tender; no masses or hepatosplenomegaly Extremities: no edema, no cyanosis Skin: No rash. Psych: no agitated Neuro: Alert on the ventilator - Constitutional Vitals: Vital Signs Temp Pulse Resp BP Pulse Ox 100.4 F H 82 18 119/79 99 02/28/20 09:00 02/28/20 10:00 02/28/20 10:00 02/28/20 10:00 02/28/20 10:00 Temperature -Last 24 Hours Temperature 100.4 F Temperature 99.1 F Temperature 100.1 F Temperature 99.6 F Temperature 98.9 F Temperature 99.2 F Temperature 100.5 F Temperature 99.6 F - Labs CBC & Chem 7: 02/28/20 04:15 02/28/20 04:15 Labs: Abnormal lab results 02/27/20 02/27/20 02/28/20 Range/Units 17:45 Unknown 00:21 WBC (4.5-11.0) K/mm3 Lymph % (Auto) (13.4-35.0) % [place] # (Auto) (0.0-0.8) K/mm3 Seg Neutrophils % (40.0-70.0) % Seg Neutrophils # (1.8-7.7) K/mm3 ABG pO2 (80.0-90.0) mm Hg ABG HCO3 (20.0-26.0) mmol/L ABG Base Excess (-2.0-3.0) mmol/L Sodium (137-145) mmol/L Potassium 2.9 L* (3.6-5.0) mmol/L Carbon Dioxide 33 H D (22-30) mmol/L Creatinine < 0.2 L (0.8-1.3) mg/dL Glucose 157 H (75-100) mg/dL POC Glucose 175 H 134 H (70-105) mg/dL 02/28/20 02/28/20 02/28/20 Range/Units 04:15 04:15 05:16 WBC 18.7 H (4.5-11.0) K/mm3 Lymph % (Auto) 8.7 L (13.4-35.0) % [place] # (Auto) 1.2 H (0.0-0.8) K/mm3 Seg Neutrophils % 84.6 H (40.0-70.0) % Seg Neutrophils # 15.9 H (1.8-7.7) K/mm3 ABG pO2 (80.0-90.0) mm Hg ABG HCO3 (20.0-26.0) mmol/L ABG Base Excess (-2.0-3.0) mmol/L Sodium 151 H (137-145) mmol/L Potassium (3.6-5.0) mmol/L Carbon Dioxide 32 H (22-30) mmol/L Creatinine 0.2 L (0.8-1.3) mg/dL Glucose 167 H (75-100) mg/dL POC Glucose 138 H (70-105) mg/dL 02/28/20 Range/Units 05:39 WBC (4.5-11.0) K/mm3 Lymph % (Auto) (13.4-35.0) % [place] # (Auto) (0.0-0.8) K/mm3 Seg Neutrophils % (40.0-70.0) % Seg Neutrophils # (1.8-7.7) K/mm3 ABG pO2 142.9 H (80.0-90.0) mm Hg ABG HCO3 34.1 H (20.0-26.0) mmol/L ABG Base Excess 8.3 H (-2.0-3.0) mmol/L Sodium (137-145) mmol/L Potassium (3.6-5.0) mmol/L Carbon Dioxide (22-30) mmol/L Creatinine (0.8-1.3) mg/dL Glucose (75-100) mg/dL POC Glucose (70-105) mg/dL
--- NOTE | 2020-02-28 11:40 | Consultation ---
History of Present Illness Consult date: 02/28/20 Reason for Consult: ALS Chief complaint: Acute Respiratory Failure History of present illness: 59 yo male with ALS presenting with severe sepsis secondary to bilateral pneumonia and s/p vfib arrest, currently with acute on chronic respiratory failure. He would like to know when can he go home. Notes no complaints at present. Past History Past Medical History: other (ALS, chronic respiratory failure (on Trilogy)) Past Surgical History: No surgical history Social history: smoking (former), alcohol abuse (~ 2 drinks/day) Family history: denies: no significant family history Medications and Allergies Allergies Allergy/AdvReac Type Severity Reaction Status Date / Time buprenorphine [From Butrans] Allergy Unknown Verified 02/24/20 08:37 fentanyl Allergy Unknown Verified 02/24/20 08:37 oxycodone [From OxyContin] Allergy Unknown Verified 02/24/20 08:37 Home Medications Medication Instructions Recorded Confirmed Last Taken Type Baclofen 10 mg PO BID 02/24/20 02/24/20 Unknown History Doxazosin 4 mg PO BID 02/24/20 02/24/20 Unknown History Etodolac ER 500 mg PO BID 02/24/20 02/24/20 Unknown History Lyrica 150 mg PO BID 02/24/20 02/24/20 Unknown History Valium 5 mg PO DAILY 02/24/20 02/24/20 Unknown History Active Meds: Active Medications Acetaminophen (Tylenol) 650 mg PO Q4H PRN PRN Reason: Pain, Mild (1-3) Last Admin: 02/28/20 09:18 Dose: 650 mg Documented by: Albuterol (Proventil) 2.5 mg IH Q4HRT PRN PRN Reason: Shortness Of Breath Lipase/Protease/Amylase (Pancreedy Dr 10,500 Unit) 1 each FEEDTUBE PRN PRN PRN Reason: For Clogged Feeding Tube Enoxaparin Sodium (Enoxaparin) 40 mg SUB-Q QDAY@2200 [facility]ISA; Protocol Last Admin: 02/27/20 22:21 Dose: 40 mg Documented by: Ceftriaxone Sodium (Rocephin/Ns 2 Gm/100 Ml) 2 gm in 100 mls @ 200 mls/hr IV Q24HR ALISA; Protocol Stop: 02/29/20 10:29 Last Admin: 02/28/20 09:17 Dose: 200 mls/hr Documented by: Dopamine HCl/Dextrose (Intropin Drip 800 Mg/D5w 250 Ml) 800 mg in 250 mls @ 3.338 mls/hr IV TITR [facility]; Protocol Last Titration: 02/26/20 17:11 Dose: 0 mcg/kg/min, 0 mls/hr Documented by: Azithromycin 500 mg/ Sodium (Chloride) 250 mls @ 250 mls/hr IV Q24HR [facility]; Protocol Stop: 03/01/20 00:00 Last Admin: 02/28/20 09:17 Dose: 250 mls/hr Documented by: Lansoprazole (Prevacid Solutab) 30 mg FEEDTUBE QDAY [facility] Last Admin: 02/28/20 09:16 Dose: 30 mg Documented by: Metoprolol Tartrate (Metoprolol) 12.5 mg PO BID [facility] Last Admin: 02/28/20 09:16 Dose: 12.5 mg Documented by: Simple Syrup (Simple Syrup) 15 ml FEEDTUBE PRN PRN PRN Reason: Hypoglycemia Simple Syrup (Simple Syrup) 30 ml FEEDTUBE PRN PRN PRN Reason: Hypoglycemia Sodium Bicarbonate (Sodium Bicarbonate) 325 mg FEEDTUBE PRN PRN PRN Reason: For Clogged Feeding Tube Review of Systems ROS unobtainable: due to endotracheal tube Physical Examination - Vital Signs Vital Signs: Vital Signs Pulse Resp BP Pulse Ox 122 H 16 118/75 90 02/24/20 08:31 02/24/20 08:31 02/24/20 08:31 02/24/20 08:31 - Additional Exam Additional Exam: Gen: nad; Head: normocephalic; Eyes: no gaze deviation; no ptosis; ENT: minimal vocalization (hypophonic); CVS: warm and well-perfused; Pulm: no respiratory distress;; GI: non-distended; Ext: no cyanosis or edema at distal extremities; Skin: no acute rash at distal extremities; Heme: no pathologic bruising at distal extremities; Neuro: alert, oriented to name, age, month, year, surroundings, intubated; no receptive aphasia, CN 2 - PERRL, visual hendrickson intact w/ ?decrease at left eye only, CN 3, 4, 6 - EOMI, CN 5 - facial sensation symmetric to light touch, CN 7 - facial movement appears symmetric, CN 8 - hearing grossly intact, CN 9, 10 - swallowing noted, CN 11 - symmetric movement, CN 12 - restricted secondary to ETT; Motor - atrophy at all exts; at least 2/5 at left exts and 0/5 at right arm and bilateral legs; Sensory - light touch symmetric, Cerebellar - cannot participate secondary to weakness, Gait - deferred secondary to fall risk; Results - Laboratory Findings CBC and BMP: 02/28/20 04:15 02/28/20 04:15 Abnormal Lab Findings: Abnormal Labs 02/24/20 02/24/20 02/24/20 09:19 09:19 09:19 WBC 20.2 H RBC 5.05 H MCV MCH RDW 15.3 H Plt Count Lymph % (Auto) [place]bert # (Auto) Seg Neutrophils % Seg Neuts % (Manual) 86.0 H Lymphocytes % (Manual) 1.0 L Seg Neutrophils # Seg Neutrophils # Man 17.4 H Lymphocytes # (Manual) 0.2 L PT 15.6 H INR 1.21 H D-Dimer 1311.96 H ABG pH POC ABG pO2 ABG pO2 ABG HCO3 ABG O2 Saturation ABG Base Excess ABG Hemoglobin ABG Oxyhemoglobin ABG Potassium ABG Glucose Oxyhemoglobin Carboxyhemoglobin Sodium 135 L Potassium 3.2 L Chloride 92.2 L Carbon Dioxide BUN 6 L Creatinine < 0.2 L Glucose 124 H POC Glucose Ferritin Total Bilirubin 2.30 H Alkaline Phosphatase 132 H Lactate Dehydrogenase Troponin T 0.080 H C-Reactive Protein Albumin 3.6 L LDL Cholesterol Direct 41 L Arterial Blood Glucose Arterial Blood Ionized Calcium 02/24/20 02/24/20 02/24/20 09:19 09:58 10:01 WBC RBC MCV MCH RDW Plt Count Lymph % (Auto) [place]bert # (Auto) Seg Neutrophils % Seg Neuts % (Manual) Lymphocytes % (Manual) Seg Neutrophils # Seg Neutrophils # Man Lymphocytes # (Manual) PT INR D-Dimer ABG pH 7.176 L* POC ABG pO2 ABG pO2 91.2 H ABG HCO3 ABG O2 Saturation ABG Base Excess -4.6 L ABG Hemoglobin ABG Oxyhemoglobin ABG Potassium ABG Glucose Oxyhemoglobin 92.6 L Carboxyhemoglobin Sodium Potassium Chloride Carbon Dioxide BUN Creatinine Glucose POC Glucose Ferritin 1715.0 H Total Bilirubin Alkaline Phosphatase Lactate Dehydrogenase 303 H Troponin T C-Reactive Protein 26.10 H Albumin LDL Cholesterol Direct Arterial Blood Glucose Arterial Blood Ionized Calcium 02/24/20 02/24/20 02/24/20 11:52 13:45 19:35 WBC RBC MCV MCH RDW Plt Count Lymph % (Auto) [place]bert # (Auto) Seg Neutrophils % Seg Neuts % (Manual) Lymphocytes % (Manual) Seg Neutrophils # Seg Neutrophils # Man Lymphocytes # (Manual) PT INR D-Dimer ABG pH 7.051 L* 7.300 L POC ABG pO2 ABG pO2 94.7 H 75.1 L ABG HCO3 18.0 L ABG O2 Saturation 93.5 L ABG Base Excess -6.8 L -7.8 L ABG Hemoglobin 13.2 L 11.9 L ABG Oxyhemoglobin ABG Potassium ABG Glucose Oxyhemoglobin 91.0 L 92.7 L Carboxyhemoglobin Sodium Potassium Chloride Carbon Dioxide BUN Creatinine Glucose POC Glucose Ferritin Total Bilirubin Alkaline Phosphatase Lactate Dehydrogenase Troponin T 0.034 H D C-Reactive Protein Albumin LDL Cholesterol Direct Arterial Blood Glucose Arterial Blood Ionized Calcium 02/25/20 02/25/20 02/25/20 04:00 04:00 12:26 WBC 22.9 H RBC MCV 83 L MCH 27 L RDW Plt Count 468 H Lymph % (Auto) [place] # (Auto) Seg Neutrophils % Seg Neuts % (Manual) 89.0 H Lymphocytes % (Manual) 7.0 L Seg Neutrophils # Seg Neutrophils # Man 20.4 H Lymphocytes # (Manual) PT INR D-Dimer ABG pH POC ABG pO2 ABG pO2 ABG HCO3 ABG O2 Saturation ABG Base Excess ABG Hemoglobin ABG Oxyhemoglobin ABG Potassium 2.6 L ABG Glucose 142 H Oxyhemoglobin Carboxyhemoglobin Sodium Potassium 3.2 L Chloride Carbon Dioxide 18 L BUN Creatinine 0.2 L Glucose 114 H POC Glucose Ferritin Total Bilirubin Alkaline Phosphatase Lactate Dehydrogenase Troponin T C-Reactive Protein Albumin 3.5 L LDL Cholesterol Direct Arterial Blood Glucose 142 H Arterial Blood Ionized Calcium 02/26/20 02/26/20 02/26/20 15:58 17:00 23:43 WBC RBC MCV MCH RDW Plt Count Lymph % (Auto) [place] # (Auto) Seg Neutrophils % Seg Neuts % (Manual) Lymphocytes % (Manual) Seg Neutrophils # Seg Neutrophils # Man Lymphocytes # (Manual) PT INR D-Dimer ABG pH 7.502 H POC ABG pO2 213.6 H ABG pO2 ABG HCO3 ABG O2 Saturation ABG Base Excess ABG Hemoglobin ABG Oxyhemoglobin 99.2 H ABG Potassium 2.9 L ABG Glucose 160 H Oxyhemoglobin Carboxyhemoglobin 0.4 L Sodium Potassium Chloride Carbon Dioxide BUN Creatinine Glucose POC Glucose 189 H 120 H Ferritin Total Bilirubin Alkaline Phosphatase Lactate Dehydrogenase Troponin T C-Reactive Protein Albumin LDL Cholesterol Direct Arterial Blood Glucose 160 H Arterial Blood Ionized Calcium 4.5 L 02/27/20 02/27/20 02/27/20 05:00 07:04 17:45 WBC RBC MCV MCH RDW Plt Count Lymph % (Auto) [place] # (Auto) Seg Neutrophils % Seg Neuts % (Manual) Lymphocytes % (Manual) Seg Neutrophils # Seg Neutrophils # Man Lymphocytes # (Manual) PT INR D-Dimer ABG pH 7.524 H POC ABG pO2 ABG pO2 ABG HCO3 ABG O2 Saturation ABG Base Excess ABG Hemoglobin ABG Oxyhemoglobin ABG Potassium 3.0 L ABG Glucose 143 H Oxyhemoglobin Carboxyhemoglobin Sodium Potassium Chloride Carbon Dioxide BUN Creatinine Glucose POC Glucose 154 H 175 H Ferritin Total Bilirubin Alkaline Phosphatase Lactate Dehydrogenase Troponin T C-Reactive Protein Albumin LDL Cholesterol Direct Arterial Blood Glucose 143 H Arterial Blood Ionized Calcium 02/27/20 02/28/20 02/28/20 Unknown 00:21 04:15 WBC 18.7 H RBC MCV MCH RDW Plt Count Lymph % (Auto) 8.7 L [place] # (Auto) 1.2 H Seg Neutrophils % 84.6 H Seg Neuts % (Manual) Lymphocytes % (Manual) Seg Neutrophils # 15.9 H Seg Neutrophils # Man Lymphocytes # (Manual) PT INR D-Dimer ABG pH POC ABG pO2 ABG pO2 ABG HCO3 ABG O2 Saturation ABG Base Excess ABG Hemoglobin ABG Oxyhemoglobin ABG Potassium ABG Glucose Oxyhemoglobin Carboxyhemoglobin Sodium Potassium 2.9 L* Chloride Carbon Dioxide 33 H D BUN Creatinine < 0.2 L Glucose 157 H POC Glucose 134 H Ferritin Total Bilirubin Alkaline Phosphatase Lactate Dehydrogenase Troponin T C-Reactive Protein Albumin LDL Cholesterol Direct Arterial Blood Glucose Arterial Blood Ionized Calcium 02/28/20 02/28/20 02/28/20 04:15 05:16 05:39 WBC RBC MCV MCH RDW Plt Count Lymph % (Auto) [place] # (Auto) Seg Neutrophils % Seg Neuts % (Manual) Lymphocytes % (Manual) Seg Neutrophils # Seg Neutrophils # Man Lymphocytes # (Manual) PT INR D-Dimer ABG pH POC ABG pO2 ABG pO2 142.9 H ABG HCO3 34.1 H ABG O2 Saturation ABG Base Excess 8.3 H ABG Hemoglobin ABG Oxyhemoglobin ABG Potassium ABG Glucose Oxyhemoglobin Carboxyhemoglobin Sodium 151 H Potassium Chloride Carbon Dioxide 32 H BUN Creatinine 0.2 L Glucose 167 H POC Glucose 138 H Ferritin Total Bilirubin Alkaline Phosphatase Lactate Dehydrogenase Troponin T C-Reactive Protein Albumin LDL Cholesterol Direct Arterial Blood Glucose Arterial Blood Ionized Calcium Assessment and Plan 59 yo male with ALS presenting with severe sepsis secondary to bilateral pneumonia and s/p vfib arrest, currently with acute on chronic respiratory failure. 1. ALS - recommend outpatient followup with Neurology in 2-4 weeks; no acute intervention indicated at present. Brandan Fox MD Neurology
--- NOTE | 2020-02-28 12:44 | Progress Note ---
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 Respiratory Failure Severe Sepsis with Shock Bilateral Pneumonia (Possible aspiration) History of ALS on Trilogy Oropharyngeal Dysphagia PUI-COVID Acute toxic metabolic encephalopathy Elevated D-dimer Elevated troponin possibly type 2 ischemia - RN asked to provide analgesia - free water 200 mls q4h re: hypernatremia - KCL 20 meq p.o. X 1 - rest on full support qhs - general surgery for tentative wound debridement for pressure ulcer (POA) - continue care as below otherwise; - continue Daily SAT and SBT assessment as tolerated - wean supplemental oxygen for target O2 sat's > 92% acutely - bronchodilators with pulmonary hygiene per RT - VAP bundle addressed - continue lung protective strategies - continue bronchodilators with pulmonary hygiene per RT - wean per pulmonary driven protocols otherwise - sedation prn for target RASS 0 to -1 - empiric antiinfectives per ID rec's (Rocephin and Zithromax) - COVID-19 isolation (Airborne & Contact) - empiric Dexamethasonme - follow COVID-19 test results - trend inflammatory markers to aid clinical decision making - enteral nutrition at goal rate as tolerated - Aspiration precautions - accuchecks with glycemic control per SSI (While critically ill target blood glucose of 140-180 mg/dL; avoid hypoglycemia) - avoid nephrotoxins, renally dose all medications - avoid benzodiazepine's, reduce the possibility of delirium - prn analgesia per CPOT score - Maintenance of sleep-wake cycle, avoid delirium - aspiration precautions - G.I. & VTE prophylaxis - PT/OT/ROM exercises - mobility protocols for pressure ulcer prophylaxis - Monitor hemodynamics closely - continue other care per attending / other consultants - discharge planning ongoing concurrently .... Re-evaluate in am & prn CONDITION: CRITICAL PROGNOSIS: GUARDED CODE STATUS: FULL CODE The high probability of a clinically significant, sudden or life-threatening deterioration of the [respiratory, cardiovascular & neurologic] system(s) re quired my full and direct attention, intervention and personal management. The aggregate critical care time was [35] minutes without overlap. Time includes spent on; [x] Data Review and interpretation [x] Patient assessment and monitoring of vital signs [x] Documentation [x] Medication orders and management Subjective Date of service: 02/28/20 Principal diagnosis: Ac on Ch Hypercapnic & hypoxemic Resp Failure; Severe Sepsis; Jamar PNA; ALS Interval history: Patient is seen today for: Acute on Chronic Hypercapnic & hypoxemic Respiratory Failure; Severe Sepsis with Shock; Bilateral Pneumonia (Possible aspiration); History of ALS on Trilogy; PUI-COVID; Acute toxic metabolic encephalopathy Seen and examined at bedside; 24hour events reviewed; nursing and respiratory care staff consulted; no adverse overnight events reported to me; resting in bed; remains on MVS; tolerating PSV trial; nods head yes to pain question; no N/V/F/C Objective Vital Signs - 12hr 02/28/20 02/28/20 02/28/20 01:00 02:00 03:00 Temperature Pulse Rate 87 101 H 108 H Pulse Rate [ From Monitor] Respiratory 18 18 17 Rate Blood Pressure 112/77 111/77 137/93 O2 Sat by Pulse 98 98 98 Oximetry 02/28/20 02/28/20 02/28/20 04:00 05:00 06:00 Temperature 100.1 F H Pulse Rate 94 H 87 87 Pulse Rate [ 94 H From Monitor] Respiratory 18 18 18 Rate Blood Pressure 118/80 109/75 111/73 O2 Sat by Pulse 98 98 98 Oximetry 02/28/20 02/28/20 02/28/20 07:00 08:00 08:15 Temperature 99.1 F Pulse Rate 89 96 H 89 Pulse Rate [ From Monitor] Respiratory 17 18 Rate Blood Pressure 119/79 115/77 115/77 O2 Sat by Pulse 99 98 98 Oximetry 02/28/20 02/28/20 02/28/20 08:30 08:55 09:00 Temperature 100.4 F H Pulse Rate 81 78 Pulse Rate [ 78 From Monitor] Respiratory 8 L 18 18 Rate Blood Pressure 125/79 109/72 O2 Sat by Pulse 99 98 98 Oximetry 02/28/20 02/28/20 02/28/20 09:16 10:00 11:00 Temperature Pulse Rate 79 82 77 Pulse Rate [ From Monitor] Respiratory 18 7 L Rate Blood Pressure 109/72 119/79 118/75 O2 Sat by Pulse 99 98 Oximetry Constitutional: appears uncomfortable, other (thin middle aged male with mildly increased respiratory effort at rest on MVS) Eyes: non-icteric ENT: oropharynx moist, other (ETT 23 cm LYNETTE) Neck: supple, no lymphadenopathy, no JVD Effort: mildly labored Ascultation: Bilateral: diminished breath sounds, rhonchi (bases) Percussion: Bilateral: not dull Cardiovascular: regular rate and rhythm, other (S1,S2, no murmurs) Gastrointestinal: normoactive bowel sounds, soft, non-tender, non-distended Integumentary: normal, decubitus ulcer (sacral / gluteal) Extremities: no cyanosis, no edema, pulses normal, other (atrophic looking limbs) Neurologic: pupils equal and round, other (motor strength in extremities 1-2/5) Psychiatric: mood appropriate, affect normal CBC and BMP: 02/29/20 04:05 02/29/20 04:05 ABG, PT/INR, D-dimer: ABG ABG pH 7.438 pH Units (7.350-7.450) 02/28/20 05:39 POC ABG pCO2 33.4 mmHg (32.0-48.0) 02/27/20 05:00 ABG pCO2 51.7 mm Hg 02/28/20 05:39 POC ABG pO2 97.7 mmHg (83-108) 02/27/20 05:00 ABG pO2 142.9 mm Hg (80.0-90.0) H 02/28/20 05:39 POC ABG HCO3 26.9 02/27/20 05:00 ABG O2 Saturation 98.7 % (95.0-99.0) 02/28/20 05:39 PT/INR, D-dimer PT 15.6 Sec. (12.2-14.9) H 02/24/20 09:19 INR 1.21 (0.87-1.13) H 02/24/20 09:19 D-Dimer 1311.96 ng/mlDDU (0-234) H 02/24/20 09:19 Abnormal lab findings: Abnormal Labs 02/24/20 02/24/20 02/24/20 09:19 09:19 09:19 WBC 20.2 H RBC 5.05 H MCV MCH RDW 15.3 H Plt Count Lymph % (Auto) [place] # (Auto) Seg Neutrophils % Seg Neuts % (Manual) 86.0 H Lymphocytes % (Manual) 1.0 L Seg Neutrophils # Seg Neutrophils # Man 17.4 H Lymphocytes # (Manual) 0.2 L PT 15.6 H INR 1.21 H D-Dimer 1311.96 H ABG pH POC ABG pO2 ABG pO2 ABG HCO3 ABG O2 Saturation ABG Base Excess ABG Hemoglobin ABG Oxyhemoglobin ABG Potassium ABG Glucose Oxyhemoglobin Carboxyhemoglobin Sodium 135 L Potassium 3.2 L Chloride 92.2 L Carbon Dioxide BUN 6 L Creatinine < 0.2 L Glucose 124 H POC Glucose Ferritin Total Bilirubin 2.30 H Alkaline Phosphatase 132 H Lactate Dehydrogenase Troponin T 0.080 H C-Reactive Protein Albumin 3.6 L LDL Cholesterol Direct 41 L Arterial Blood Glucose Arterial Blood Ionized Calcium 02/24/20 02/24/20 02/24/20 09:19 09:58 10:01 WBC RBC MCV MCH RDW Plt Count Lymph % (Auto) [place] # (Auto) Seg Neutrophils % Seg Neuts % (Manual) Lymphocytes % (Manual) Seg Neutrophils # Seg Neutrophils # Man Lymphocytes # (Manual) PT INR D-Dimer ABG pH 7.176 L* POC ABG pO2 ABG pO2 91.2 H ABG HCO3 ABG O2 Saturation ABG Base Excess -4.6 L ABG Hemoglobin ABG Oxyhemoglobin ABG Potassium ABG Glucose Oxyhemoglobin 92.6 L Carboxyhemoglobin Sodium Potassium Chloride Carbon Dioxide BUN Creatinine Glucose POC Glucose Ferritin 1715.0 H Total Bilirubin Alkaline Phosphatase Lactate Dehydrogenase 303 H Troponin T C-Reactive Protein 26.10 H Albumin LDL Cholesterol Direct Arterial Blood Glucose Arterial Blood Ionized Calcium 02/24/20 02/24/20 02/24/20 11:52 13:45 19:35 WBC RBC MCV MCH RDW Plt Count Lymph % (Auto) [place] # (Auto) Seg Neutrophils % Seg Neuts % (Manual) Lymphocytes % (Manual) Seg Neutrophils # Seg Neutrophils # Man Lymphocytes # (Manual) PT INR D-Dimer ABG pH 7.051 L* 7.300 L POC ABG pO2 ABG pO2 94.7 H 75.1 L ABG HCO3 18.0 L ABG O2 Saturation 93.5 L ABG Base Excess -6.8 L -7.8 L ABG Hemoglobin 13.2 L 11.9 L ABG Oxyhemoglobin ABG Potassium ABG Glucose Oxyhemoglobin 91.0 L 92.7 L Carboxyhemoglobin Sodium Potassium Chloride Carbon Dioxide BUN Creatinine Glucose POC Glucose Ferritin Total Bilirubin Alkaline Phosphatase Lactate Dehydrogenase Troponin T 0.034 H D C-Reactive Protein Albumin LDL Cholesterol Direct Arterial Blood Glucose Arterial Blood Ionized Calcium 02/25/20 02/25/20 02/25/20 04:00 04:00 12:26 WBC 22.9 H RBC MCV 83 L MCH 27 L RDW Plt Count 468 H Lymph % (Auto) [place] # (Auto) Seg Neutrophils % Seg Neuts % (Manual) 89.0 H Lymphocytes % (Manual) 7.0 L Seg Neutrophils # Seg Neutrophils # Man 20.4 H Lymphocytes # (Manual) PT INR D-Dimer ABG pH POC ABG pO2 ABG pO2 ABG HCO3 ABG O2 Saturation ABG Base Excess ABG Hemoglobin ABG Oxyhemoglobin ABG Potassium 2.6 L ABG Glucose 142 H Oxyhemoglobin Carboxyhemoglobin Sodium Potassium 3.2 L Chloride Carbon Dioxide 18 L BUN Creatinine 0.2 L Glucose 114 H POC Glucose Ferritin Total Bilirubin Alkaline Phosphatase Lactate Dehydrogenase Troponin T C-Reactive Protein Albumin 3.5 L LDL Cholesterol Direct Arterial Blood Glucose 142 H Arterial Blood Ionized Calcium 02/26/20 02/26/20 02/26/20 15:58 17:00 23:43 WBC RBC MCV MCH RDW Plt Count Lymph % (Auto) [place] # (Auto) Seg Neutrophils % Seg Neuts % (Manual) Lymphocytes % (Manual) Seg Neutrophils # Seg Neutrophils # Man Lymphocytes # (Manual) PT INR D-Dimer ABG pH 7.502 H POC ABG pO2 213.6 H ABG pO2 ABG HCO3 ABG O2 Saturation ABG Base Excess ABG Hemoglobin ABG Oxyhemoglobin 99.2 H ABG Potassium 2.9 L ABG Glucose 160 H Oxyhemoglobin Carboxyhemoglobin 0.4 L Sodium Potassium Chloride Carbon Dioxide BUN Creatinine Glucose POC Glucose 189 H 120 H Ferritin Total Bilirubin Alkaline Phosphatase Lactate Dehydrogenase Troponin T C-Reactive Protein Albumin LDL Cholesterol Direct Arterial Blood Glucose 160 H Arterial Blood Ionized Calcium 4.5 L 02/27/20 02/27/20 02/27/20 05:00 07:04 17:45 WBC RBC MCV MCH RDW Plt Count Lymph % (Auto) [place] # (Auto) Seg Neutrophils % Seg Neuts % (Manual) Lymphocytes % (Manual) Seg Neutrophils # Seg Neutrophils # Man Lymphocytes # (Manual) PT INR D-Dimer ABG pH 7.524 H POC ABG pO2 ABG pO2 ABG HCO3 ABG O2 Saturation ABG Base Excess ABG Hemoglobin ABG Oxyhemoglobin ABG Potassium 3.0 L ABG Glucose 143 H Oxyhemoglobin Carboxyhemoglobin Sodium Potassium Chloride Carbon Dioxide BUN Creatinine Glucose POC Glucose 154 H 175 H Ferritin Total Bilirubin Alkaline Phosphatase Lactate Dehydrogenase Troponin T C-Reactive Protein Albumin LDL Cholesterol Direct Arterial Blood Glucose 143 H Arterial Blood Ionized Calcium 02/27/20 02/28/20 02/28/20 Unknown 00:21 04:15 WBC 18.7 H RBC MCV MCH RDW Plt Count Lymph % (Auto) 8.7 L [place] # (Auto) 1.2 H Seg Neutrophils % 84.6 H Seg Neuts % (Manual) Lymphocytes % (Manual) Seg Neutrophils # 15.9 H Seg Neutrophils # Man Lymphocytes # (Manual) PT INR D-Dimer ABG pH POC ABG pO2 ABG pO2 ABG HCO3 ABG O2 Saturation ABG Base Excess ABG Hemoglobin ABG Oxyhemoglobin ABG Potassium ABG Glucose Oxyhemoglobin Carboxyhemoglobin Sodium Potassium 2.9 L* Chloride Carbon Dioxide 33 H D BUN Creatinine < 0.2 L Glucose 157 H POC Glucose 134 H Ferritin Total Bilirubin Alkaline Phosphatase Lactate Dehydrogenase Troponin T C-Reactive Protein Albumin LDL Cholesterol Direct Arterial Blood Glucose Arterial Blood Ionized Calcium 02/28/20 02/28/20 02/28/20 04:15 05:16 05:39 WBC RBC MCV MCH RDW Plt Count Lymph % (Auto) [place] # (Auto) Seg Neutrophils % Seg Neuts % (Manual) Lymphocytes % (Manual) Seg Neutrophils # Seg Neutrophils # Man Lymphocytes # (Manual) PT INR D-Dimer ABG pH POC ABG pO2 ABG pO2 142.9 H ABG HCO3 34.1 H ABG O2 Saturation ABG Base Excess 8.3 H ABG Hemoglobin ABG Oxyhemoglobin ABG Potassium ABG Glucose Oxyhemoglobin Carboxyhemoglobin Sodium 151 H Potassium Chloride Carbon Dioxide 32 H BUN Creatinine 0.2 L Glucose 167 H POC Glucose 138 H Ferritin Total Bilirubin Alkaline Phosphatase Lactate Dehydrogenase Troponin T C-Reactive Protein Albumin LDL Cholesterol Direct Arterial Blood Glucose Arterial Blood Ionized Calcium 02/28/20 11:33 WBC RBC MCV MCH RDW Plt Count Lymph % (Auto) [place] # (Auto) Seg Neutrophils % Seg Neuts % (Manual) Lymphocytes % (Manual) Seg Neutrophils # Seg Neutrophils # Man Lymphocytes # (Manual) PT INR D-Dimer ABG pH POC ABG pO2 ABG pO2 ABG HCO3 ABG O2 Saturation ABG Base Excess ABG Hemoglobin ABG Oxyhemoglobin ABG Potassium ABG Glucose Oxyhemoglobin Carboxyhemoglobin Sodium Potassium Chloride Carbon Dioxide BUN Creatinine Glucose POC Glucose 160 H Ferritin Total Bilirubin Alkaline Phosphatase Lactate Dehydrogenase Troponin T C-Reactive Protein Albumin LDL Cholesterol Direct Arterial Blood Glucose Arterial Blood Ionized Calcium Chest x-ray: other (none today) Allied health notes reviewed: nursing
--- NOTE | 2020-02-28 12:54 | Consultation ---
History of Present Illness Consult date: 02/28/20 - History of present illness History of present illness: 59 yo male with a left buttock pressure ulcer. Past History Past Medical History: other (ALS, chronic respiratory failure (on Trilogy)) Past Surgical History: No surgical history Social history: smoking (former), alcohol abuse (~ 2 drinks/day) Family history: denies: no significant family history Medications and Allergies Allergies Allergy/AdvReac Type Severity Reaction Status Date / Time buprenorphine [From Butrans] Allergy Unknown Verified 02/24/20 08:37 fentanyl Allergy Unknown Verified 02/24/20 08:37 oxycodone [From OxyContin] Allergy Unknown Verified 02/24/20 08:37 Home Medications Medication Instructions Recorded Confirmed Last Taken Type Baclofen 10 mg PO BID 02/24/20 02/24/20 Unknown History Doxazosin 4 mg PO BID 02/24/20 02/24/20 Unknown History Etodolac ER 500 mg PO BID 02/24/20 02/24/20 Unknown History Lyrica 150 mg PO BID 02/24/20 02/24/20 Unknown History Valium 5 mg PO DAILY 02/24/20 02/24/20 Unknown History Active Meds: Active Medications Acetaminophen (Tylenol) 650 mg PO Q4H PRN PRN Reason: Pain, Mild (1-3) Last Admin: 02/28/20 09:18 Dose: 650 mg Documented by: Albuterol (Proventil) 2.5 mg IH Q4HRT PRN PRN Reason: Shortness Of Breath Lipase/Protease/Amylase (Pancreedy Dr 10,500 Unit) 1 each FEEDTUBE PRN PRN PRN Reason: For Clogged Feeding Tube Enoxaparin Sodium (Enoxaparin) 40 mg SUB-Q QDAY@2200 ALISA; Protocol Last Admin: 02/27/20 22:21 Dose: 40 mg Documented by: Ceftriaxone Sodium (Rocephin/Ns 2 Gm/100 Ml) 2 gm in 100 mls @ 200 mls/hr IV Q24HR ALISA; Protocol Stop: 02/29/20 10:29 Last Admin: 02/28/20 09:17 Dose: 200 mls/hr Documented by: Dopamine HCl/Dextrose (Intropin Drip 800 Mg/D5w 250 Ml) 800 mg in 250 mls @ 3.338 mls/hr IV TITR ALISA; Protocol Last Titration: 02/26/20 17:11 Dose: 0 mcg/kg/min, 0 mls/hr Documented by: Azithromycin 500 mg/ Sodium (Chloride) 250 mls @ 250 mls/hr IV Q24HR [facility]; Protocol Stop: 03/01/20 00:00 Last Admin: 02/28/20 09:17 Dose: 250 mls/hr Documented by: Lansoprazole (Prevacid Solutab) 30 mg FEEDTUBE QDAY [facility] Last Admin: 02/28/20 09:16 Dose: 30 mg Documented by: Metoprolol Tartrate (Metoprolol) 12.5 mg PO BID [facility] Last Admin: 02/28/20 09:16 Dose: 12.5 mg Documented by: Simple Syrup (Simple Syrup) 15 ml FEEDTUBE PRN PRN PRN Reason: Hypoglycemia Simple Syrup (Simple Syrup) 30 ml FEEDTUBE PRN PRN PRN Reason: Hypoglycemia Sodium Bicarbonate (Sodium Bicarbonate) 325 mg FEEDTUBE PRN PRN PRN Reason: For Clogged Feeding Tube Exam Vital Signs Pulse Resp BP Pulse Ox 122 H 16 118/75 90 02/24/20 08:31 02/24/20 08:31 02/24/20 08:31 02/24/20 08:31 - Integumentary other (There is a 4.5 X 7 X 0.9 cm unstageable ulcer of the left buttock. There is exposed necrotic skin, SQ tissue and probable muscle. No undrained abscess.) Results - Labs 02/28/20 04:15 02/28/20 04:15 Abnormal lab results 02/27/20 02/28/20 02/28/20 Range/Units 17:45 00:21 04:15 WBC 18.7 H (4.5-11.0) K/mm3 Lymph % (Auto) 8.7 L (13.4-35.0) % [place] # (Auto) 1.2 H (0.0-0.8) K/mm3 Seg Neutrophils % 84.6 H (40.0-70.0) % Seg Neutrophils # 15.9 H (1.8-7.7) K/mm3 ABG pO2 (80.0-90.0) mm Hg ABG HCO3 (20.0-26.0) mmol/L ABG Base Excess (-2.0-3.0) mmol/L Sodium (137-145) mmol/L Carbon Dioxide (22-30) mmol/L Creatinine (0.8-1.3) mg/dL Glucose (75-100) mg/dL POC Glucose 175 H 134 H (70-105) mg/dL 02/28/20 02/28/20 02/28/20 Range/Units 04:15 05:16 05:39 WBC (4.5-11.0) K/mm3 Lymph % (Auto) (13.4-35.0) % [place] # (Auto) (0.0-0.8) K/mm3 Seg Neutrophils % (40.0-70.0) % Seg Neutrophils # (1.8-7.7) K/mm3 ABG pO2 142.9 H (80.0-90.0) mm Hg ABG HCO3 34.1 H (20.0-26.0) mmol/L ABG Base Excess 8.3 H (-2.0-3.0) mmol/L Sodium 151 H (137-145) mmol/L Carbon Dioxide 32 H (22-30) mmol/L Creatinine 0.2 L (0.8-1.3) mg/dL Glucose 167 H (75-100) mg/dL POC Glucose 138 H (70-105) mg/dL 02/28/20 Range/Units 11:33 WBC (4.5-11.0) K/mm3 Lymph % (Auto) (13.4-35.0) % [place] # (Auto) (0.0-0.8) K/mm3 Seg Neutrophils % (40.0-70.0) % Seg Neutrophils # (1.8-7.7) K/mm3 ABG pO2 (80.0-90.0) mm Hg ABG HCO3 (20.0-26.0) mmol/L ABG Base Excess (-2.0-3.0) mmol/L Sodium (137-145) mmol/L Carbon Dioxide (22-30) mmol/L Creatinine (0.8-1.3) mg/dL Glucose (75-100) mg/dL POC Glucose 160 H (70-105) mg/dL Diabetes panel 02/28/20 Range/Units 04:15 Sodium 151 H (137-145) mmol/L Potassium 3.6 D (3.6-5.0) mmol/L Chloride 106.2 (98-107) mmol/L Carbon Dioxide 32 H (22-30) mmol/L BUN 13 (9-20) mg/dL Creatinine 0.2 L (0.8-1.3) mg/dL Glucose 167 H (75-100) mg/dL Calcium 8.7 (8.4-10.2) mg/dL Calcium panel 02/28/20 Range/Units 04:15 Calcium 8.7 (8.4-10.2) mg/dL Pituitary panel 02/28/20 Range/Units 04:15 Sodium 151 H (137-145) mmol/L Potassium 3.6 D (3.6-5.0) mmol/L Chloride 106.2 (98-107) mmol/L Carbon Dioxide 32 H (22-30) mmol/L BUN 13 (9-20) mg/dL Creatinine 0.2 L (0.8-1.3) mg/dL Glucose 167 H (75-100) mg/dL Calcium 8.7 (8.4-10.2) mg/dL Adrenal panel 02/28/20 Range/Units 04:15 Sodium 151 H (137-145) mmol/L Potassium 3.6 D (3.6-5.0) mmol/L Chloride 106.2 (98-107) mmol/L Carbon Dioxide 32 H (22-30) mmol/L BUN 13 (9-20) mg/dL Creatinine 0.2 L (0.8-1.3) mg/dL Glucose 167 H (75-100) mg/dL Calcium 8.7 (8.4-10.2) mg/dL Assessment and Plan - Patient Problems (1) Pressure ulcer of left buttock, unstageable Current Visit: Yes Status: Acute Plan to address problem: 1) Off loading 2) I will debride the ulcer soon. 3) Intense nutritional support. 4) Check prealbumin
[2020-02-28] MEDS ORDERED: POTASSIUM CHLORIDE 20 MEQ PACKET FEEDTUBE ONE (14:00)
--- NOTE | 2020-02-28 15:38 | Progress Note ---
Assessment and Plan Echo pending. Continue present mgmt. Pt seen in conjunction with Dr. Raphael Moise, who agrees with the assessment and plan of care. - Patient Problems (1) Acute and chronic respiratory failure ([id number]) Current Visit: Yes Status: Acute (2) Pneumonia Current Visit: Yes Status: Acute Qualifiers: Pneumonia type: aspiration pneumonia Laterality: bilateral (3) Sepsis Current Visit: Yes Status: Acute (4) Toxic metabolic encephalopathy Current Visit: Yes Status: Acute (5) NSTEMI (non-ST elevated myocardial infarction) Current Visit: Yes Status: Acute Plan to address problem: Type 2 (6) Elevated d-dimer Current Visit: Yes Status: Acute Plan to address problem: Chest CTA & BLE Dopplers neg (7) ALS (amyotrophic lateral sclerosis) Current Visit: Yes Status: Chronic (8) ETOH abuse Current Visit: Yes Status: Chronic Subjective Date of service: 02/28/20 Principal diagnosis: A/C Resp Failure; Severe Sepsis; Jamar PNA; ALS Interval history: Pt noted to require reintubation overnight. No additional acute events reported. No complaints. Tele reviewed - SR 80-90s w/no acute events noted overnight. Objective Last Vital Signs Temp 98.4 F 02/28/20 12:00 Pulse 101 H 02/28/20 14:00 Resp 12 02/28/20 14:00 BP 129/86 02/28/20 14:00 Pulse Ox 99 02/28/20 14:00 - Physical Examination HEENT: Positive: Normocephaly Neck: Positive: neck supple Cardiac: Positive: Reg Rate and Rhythm Lungs: Positive: Decreased Breath Sounds Neuro: Positive: Other (unable to assess) Abdomen: Positive: Soft, Active Bowel Sounds Skin: Negative: Rash Musculoskeletal: No Fluid Collection Extremities: Present: lower extr. pulses. Absent: edema - Labs and Meds CBC 02/28/20 Range/Units 04:15 WBC 18.7 H (4.5-11.0) K/mm3 RBC 4.79 (3.65-5.03) M/mm3 Hgb 13.2 (11.8-15.2) gm/dl Hct 40.2 (35.5-45.6) % Plt Count 408 (140-440) K/mm3 Lymph # (Auto) 1.6 (1.2-5.4) K/mm3 [place] # (Auto) 1.2 H (0.0-0.8) K/mm3 Eos # (Auto) 0.0 (0.0-0.4) K/mm3 Baso # (Auto) 0.0 (0.0-0.1) K/mm3 Comprehensive Metabolic Panel 02/28/20 Range/Units 04:15 Sodium 151 H (137-145) mmol/L Potassium 3.6 D (3.6-5.0) mmol/L Chloride 106.2 (98-107) mmol/L Carbon Dioxide 32 H (22-30) mmol/L BUN 13 (9-20) mg/dL Creatinine 0.2 L (0.8-1.3) mg/dL Glucose 167 H (75-100) mg/dL Calcium 8.7 (8.4-10.2) mg/dL - Imaging and Cardiology EKG: report reviewed, image reviewed Echo: pending - Telemetry EKG Rhythm: Sinus Rhythm - EKG Sinus rhythms and dysrhythmias: sinus tachycardia Repolarization changes or abnormalities: nonspecific abnormality, ST segment, and/or T wave - Allied health notes Allied health notes reviewed: RT
[2020-02-28] MEDS: ENOXAPARIN 40 MG/0.4 ML INJ SUB-Q SCH (21:36)
[2020-02-29 04:45] LABS: Hemoglobin 13.2 gm/dl (11.8-15.2); Mean Corpuscular HGB Conc 32 % (32-34); Mean Corpuscular Volume 84 fl (84-94); Platelet Count 382 K/mm3 (140-440); Red Blood Count 4.89 M/mm3 (3.65-5.03); Red Cell Distribution Width 15.4 % (13.2-15.2)
[2020-02-29 05:05] LABS: Blood Urea Nitrogen 15 mg/dL (9-20); Calcium 8.5 mg/dL (8.4-10.2); Hemolysis Index 2
[2020-02-29 05:06] LABS: BUN/Creatinine Ratio 75
[2020-02-29 06:37] LABS: Anisocytosis Few; Basophils % (Manual) 0 % (0.0-1.8); Eosinophils % (Manual) 0 % (0.0-4.3); Platelet Estimate Consistent w Auto; Total Cells Counted 100
--- NOTE | 2020-02-29 08:08 | Progress Note ---
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 Respiratory Failure Severe Sepsis with Shock Bilateral Pneumonia (Possible aspiration) History of ALS on Trilogy Oropharyngeal Dysphagia PUI-COVID Acute toxic metabolic encephalopathy Elevated D-dimer Elevated troponin possibly type 2 ischemia - morphine sulfate 2mg IV q4h ordered - RN / child welfare caseworker to identify legal NOK - continue free water 200 mls q4h re: hypernatremia - continue to rest on full support qhs - general surgery for tentative wound debridement for pressure ulcer (POA) - continue care as below otherwise; - continue Daily SAT and SBT assessment as tolerated - wean supplemental oxygen for target O2 sat's > 92% acutely - bronchodilators with pulmonary hygiene per RT - VAP bundle addressed - continue lung protective strategies - continue bronchodilators with pulmonary hygiene per RT - wean per pulmonary driven protocols otherwise - sedation prn for target RASS 0 to -1 - empiric antiinfectives per ID rec's (Rocephin and Zithromax) - COVID-19 isolation (Airborne & Contact) - empiric Dexamethasonme - follow COVID-19 test results - trend inflammatory markers to aid clinical decision making - enteral nutrition at goal rate as tolerated - Aspiration precautions - accuchecks with glycemic control per SSI (While critically ill target blood glucose of 140-180 mg/dL; avoid hypoglycemia) - avoid nephrotoxins, renally dose all medications - avoid benzodiazepine's, reduce the possibility of delirium - prn analgesia per CPOT score - Maintenance of sleep-wake cycle, avoid delirium - aspiration precautions - G.I. & VTE prophylaxis - PT/OT/ROM exercises - mobility protocols for pressure ulcer prophylaxis - Monitor hemodynamics closely - continue other care per attending / other consultants - discharge planning ongoing concurrently .... Re-evaluate in am & prn CONDITION: CRITICAL PROGNOSIS: GUARDED CODE STATUS: FULL CODE The high probability of a clinically significant, sudden or life-threatening deterioration of the [respiratory, cardiovascular & neurologic] system(s) required my full and direct attention, intervention and personal management. The aggregate critical care time was [32] minutes without overlap. Time includes spent on; [x] Data Review and interpretation [x] Patient assessment and monitoring of vital signs [x] Documentation [x] Medication orders and management Subjective Date of service: 02/29/20 Principal diagnosis: Ac on Ch Hypercapnic & hypoxemic Resp Failure; Severe Sepsis; Jamar PNA; ALS Interval history: Patient is seen today for: Acute on Chronic Hypercapnic & hypoxemic Respiratory Failure; Severe Sepsis with Shock; Bilateral Pneumonia (Possible aspiration); History of ALS on Trilogy; PUI-COVID; Acute toxic metabolic encephalopathy Seen and examined at bedside; 24hour events reviewed; nursing and respiratory care staff consulted; no adverse overnight events reported to me; resting in bed; remains on MVS; on PSv with p-supp at 15; complains of pain but states he is allergic tyo fentanyl; he states he has tolerated morphine in the past; his daughter and son visited earlier per MICHELA salomon they are not listed on chart as NOK Objective Vital Signs - 12hr 02/28/20 02/28/20 02/28/20 20:14 21:00 21:37 Temperature Pulse Rate 92 H 94 H 98 H Pulse Rate [ From Monitor] Respiratory 18 Rate Blood Pressure 128/86 118/83 125/86 O2 Sat by Pulse 98 98 Oximetry 02/28/20 02/28/20 02/28/20 22:00 23:00 23:27 Temperature Pulse Rate 79 82 91 H Pulse Rate [ From Monitor] Respiratory 18 18 Rate Blood Pressure 109/79 119/79 119/79 O2 Sat by Pulse 99 99 99 Oximetry 02/28/20 02/29/20 02/29/20 23:41 00:00 00:08 Temperature 100.4 F H Pulse Rate 82 91 H Pulse Rate [ 82 From Monitor] Respiratory 18 18 Rate Blood Pressure 111/77 111/77 O2 Sat by Pulse 99 99 Oximetry 02/29/20 02/29/20 02/29/20 01:00 02:00 03:00 Temperature 99.6 F Pulse Rate 84 82 92 H Pulse Rate [ From Monitor] Respiratory 17 18 18 Rate Blood Pressure 117/79 114/79 116/80 O2 Sat by Pulse 99 98 99 Oximetry 02/29/20 02/29/20 02/29/20 04:00 04:41 05:00 Temperature Pulse Rate 83 94 H 84 Pulse Rate [ 83 From Monitor] Respiratory 18 18 Rate Blood Pressure 120/80 116/82 125/80 O2 Sat by Pulse 98 99 98 Oximetry 02/29/20 02/29/20 02/29/20 06:00 07:00 07:26 Temperature Pulse Rate 76 91 H 95 H Pulse Rate [ From Monitor] Respiratory 18 18 10 L Rate Blood Pressure 121/82 108/80 108/80 O2 Sat by Pulse 98 99 99 Oximetry Constitutional: no acute distress, other (thin middle aged male with mildly increased respiratory effort at rest on MVS) Eyes: non-icteric ENT: oropharynx moist, other (ETT 23 cm LYNETTE) Neck: supple, no lymphadenopathy, no JVD Effort: mildly labored Ascultation: Bilateral: diminished breath sounds, wheezes, rhonchi (scant in bases) Percussion: Bilateral: not dull Cardiovascular: regular rate and rhythm, other (S1,S2, no murmurs) Gastrointestinal: normoactive bowel sounds, soft, non-tender, non-distended Integumentary: normal, decubitus ulcer (sacral / gluteal) Extremities: no cyanosis, no edema, pulses normal, other (atrophic looking limbs) Neurologic: pupils equal and round, other (motor strength in extremities 1-2/5) Psychiatric: mood appropriate, affect normal CBC and BMP: 02/29/20 04:05 02/29/20 04:05 ABG, PT/INR, D-dimer: ABG ABG pH 7.431 (7.320-7.450) 02/29/20 05:14 POC ABG pCO2 54.3 mmHg (32.0-48.0) H 02/29/20 05:14 ABG pCO2 51.7 mm Hg 02/28/20 05:39 POC ABG pO2 124.8 mmHg (83-108) H 02/29/20 05:14 ABG pO2 142.9 mm Hg (80.0-90.0) H 02/28/20 05:39 POC ABG HCO3 35.3 02/29/20 05:14 ABG O2 Saturation 98.7 % (95.0-99.0) 02/28/20 05:39 PT/INR, D-dimer PT 15.6 Sec. (12.2-14.9) H 02/24/20 09:19 INR 1.21 (0.87-1.13) H 02/24/20 09:19 D-Dimer 1311.96 ng/mlDDU (0-234) H 02/24/20 09:19 Abnormal lab findings: Abnormal Labs 02/24/20 02/24/20 02/24/20 09:19 09:19 09:19 WBC 20.2 H RBC 5.05 H MCV MCH RDW 15.3 H Plt Count Lymph % (Auto) [place] # (Auto) Seg Neutrophils % Seg Neuts % (Manual) 86.0 H Lymphocytes % (Manual) 1.0 L Seg Neutrophils # Seg Neutrophils # Man 17.4 H Lymphocytes # (Manual) 0.2 L Monocytes # (Manual) PT 15.6 H INR 1.21 H D-Dimer 1311.96 H ABG pH POC ABG pCO2 POC ABG pO2 ABG pO2 ABG HCO3 ABG O2 Saturation ABG Base Excess ABG Hemoglobin ABG Oxyhemoglobin ABG Potassium ABG Glucose Oxyhemoglobin Carboxyhemoglobin Sodium 135 L Potassium 3.2 L Chloride 92.2 L Carbon Dioxide BUN 6 L Creatinine < 0.2 L Glucose 124 H POC Glucose Ferritin Total Bilirubin 2.30 H Alkaline Phosphatase 132 H Lactate Dehydrogenase Troponin T 0.080 H C-Reactive Protein Albumin 3.6 L Prealbumin LDL Cholesterol Direct 41 L Arterial Blood Glucose Arterial Blood Ionized Calcium 02/24/20 02/24/20 02/24/20 09:19 09:58 10:01 WBC RBC MCV MCH RDW Plt Count Lymph % (Auto) [place] # (Auto) Seg Neutrophils % Seg Neuts % (Manual) Lymphocytes % (Manual) Seg Neutrophils # Seg Neutrophils # Man Lymphocytes # (Manual) Monocytes # (Manual) PT INR D-Dimer ABG pH 7.176 L* POC ABG pCO2 POC ABG pO2 ABG pO2 91.2 H ABG HCO3 ABG O2 Saturation ABG Base Excess -4.6 L ABG Hemoglobin ABG Oxyhemoglobin ABG Potassium ABG Glucose Oxyhemoglobin 92.6 L Carboxyhemoglobin Sodium Potassium Chloride Carbon Dioxide BUN Creatinine Glucose POC Glucose Ferritin 1715.0 H Total Bilirubin Alkaline Phosphatase Lactate Dehydrogenase 303 H Troponin T C-Reactive Protein 26.10 H Albumin Prealbumin LDL Cholesterol Direct Arterial Blood Glucose Arterial Blood Ionized Calcium 02/24/20 02/24/20 02/24/20 11:52 13:45 19:35 WBC RBC MCV MCH RDW Plt Count Lymph % (Auto) [place] # (Auto) Seg Neutrophils % Seg Neuts % (Manual) Lymphocytes % (Manual) Seg Neutrophils # Seg Neutrophils # Man Lymphocytes # (Manual) Monocytes # (Manual) PT INR D-Dimer ABG pH 7.051 L* 7.300 L POC ABG pCO2 POC ABG pO2 ABG pO2 94.7 H 75.1 L ABG HCO3 18.0 L ABG O2 Saturation 93.5 L ABG Base Excess -6.8 L -7.8 L ABG Hemoglobin 13.2 L 11.9 L ABG Oxyhemoglobin ABG Potassium ABG Glucose Oxyhemoglobin 91.0 L 92.7 L Carboxyhemoglobin Sodium Potassium Chloride Carbon Dioxide BUN Creatinine Glucose POC Glucose Ferritin Total Bilirubin Alkaline Phosphatase Lactate Dehydrogenase Troponin T 0.034 H D C-Reactive Protein Albumin Prealbumin LDL Cholesterol Direct Arterial Blood Glucose Arterial Blood Ionized Calcium 02/25/20 02/25/20 02/25/20 04:00 04:00 12:26 WBC 22.9 H RBC MCV 83 L MCH 27 L RDW Plt Count 468 H Lymph % (Auto) [place] # (Auto) Seg Neutrophils % Seg Neuts % (Manual) 89.0 H Lymphocytes % (Manual) 7.0 L Seg Neutrophils # Seg Neutrophils # Man 20.4 H Lymphocytes # (Manual) Monocytes # (Manual) PT INR D-Dimer ABG pH POC ABG pCO2 POC ABG pO2 ABG pO2 ABG HCO3 ABG O2 Saturation ABG Base Excess ABG Hemoglobin ABG Oxyhemoglobin ABG Potassium 2.6 L ABG Glucose 142 H Oxyhemoglobin Carboxyhemoglobin Sodium Potassium 3.2 L Chloride Carbon Dioxide 18 L BUN Creatinine 0.2 L Glucose 114 H POC Glucose Ferritin Total Bilirubin Alkaline Phosphatase Lactate Dehydrogenase Troponin T C-Reactive Protein Albumin 3.5 L Prealbumin LDL Cholesterol Direct Arterial Blood Glucose 142 H Arterial Blood Ionized Calcium 02/26/20 02/26/20 02/26/20 15:58 17:00 23:43 WBC RBC MCV MCH RDW Plt Count Lymph % (Auto) [place] # (Auto) Seg Neutrophils % Seg Neuts % (Manual) Lymphocytes % (Manual) Seg Neutrophils # Seg Neutrophils # Man Lymphocytes # (Manual) Monocytes # (Manual) PT INR D-Dimer ABG pH 7.502 H POC ABG pCO2 POC ABG pO2 213.6 H ABG pO2 ABG HCO3 ABG O2 Saturation ABG Base Excess ABG Hemoglobin ABG Oxyhemoglobin 99.2 H ABG Potassium 2.9 L ABG Glucose 160 H Oxyhemoglobin Carboxyhemoglobin 0.4 L Sodium Potassium Chloride Carbon Dioxide BUN Creatinine Glucose POC Glucose 189 H 120 H Ferritin Total Bilirubin Alkaline Phosphatase Lactate Dehydrogenase Troponin T C-Reactive Protein Albumin Prealbumin LDL Cholesterol Direct Arterial Blood Glucose 160 H Arterial Blood Ionized Calcium 4.5 L 02/27/20 02/27/20 02/27/20 05:00 07:04 17:45 WBC RBC MCV MCH RDW Plt Count Lymph % (Auto) [place] # (Auto) Seg Neutrophils % Seg Neuts % (Manual) Lymphocytes % (Manual) Seg Neutrophils # Seg Neutrophils # Man Lymphocytes # (Manual) Monocytes # (Manual) PT INR D-Dimer ABG pH 7.524 H POC ABG pCO2 POC ABG pO2 ABG pO2 ABG HCO3 ABG O2 Saturation ABG Base Excess ABG Hemoglobin ABG Oxyhemoglobin ABG Potassium 3.0 L ABG Glucose 143 H Oxyhemoglobin Carboxyhemoglobin Sodium Potassium Chloride Carbon Dioxide BUN Creatinine Glucose POC Glucose 154 H 175 H Ferritin Total Bilirubin Alkaline Phosphatase Lactate Dehydrogenase Troponin T C-Reactive Protein Albumin Prealbumin LDL Cholesterol Direct Arterial Blood Glucose 143 H Arterial Blood Ionized Calcium 02/27/20 02/28/20 02/28/20 Unknown 00:21 04:15 WBC 18.7 H RBC MCV MCH RDW Plt Count Lymph % (Auto) 8.7 L [place] # (Auto) 1.2 H Seg Neutrophils % 84.6 H Seg Neuts % (Manual) Lymphocytes % (Manual) Seg Neutrophils # 15.9 H Seg Neutrophils # Man Lymphocytes # (Manual) Monocytes # (Manual) PT INR D-Dimer ABG pH POC ABG pCO2 POC ABG pO2 ABG pO2 ABG HCO3 ABG O2 Saturation ABG Base Excess ABG Hemoglobin ABG Oxyhemoglobin ABG Potassium ABG Glucose Oxyhemoglobin Carboxyhemoglobin Sodium Potassium 2.9 L* Chloride Carbon Dioxide 33 H D BUN Creatinine < 0.2 L Glucose 157 H POC Glucose 134 H Ferritin Total Bilirubin Alkaline Phosphatase Lactate Dehydrogenase Troponin T C-Reactive Protein Albumin Prealbumin LDL Cholesterol Direct Arterial Blood Glucose Arterial Blood Ionized Calcium 02/28/20 02/28/20 02/28/20 04:15 05:16 05:39 WBC RBC MCV MCH RDW Plt Count Lymph % (Auto) [place] # (Auto) Seg Neutrophils % Seg Neuts % (Manual) Lymphocytes % (Manual) Seg Neutrophils # Seg Neutrophils # Man Lymphocytes # (Manual) Monocytes # (Manual) PT INR D-Dimer ABG pH POC ABG pCO2 POC ABG pO2 ABG pO2 142.9 H ABG HCO3 34.1 H ABG O2 Saturation ABG Base Excess 8.3 H ABG Hemoglobin ABG Oxyhemoglobin ABG Potassium ABG Glucose Oxyhemoglobin Carboxyhemoglobin Sodium 151 H Potassium Chloride Carbon Dioxide 32 H BUN Creatinine 0.2 L Glucose 167 H POC Glucose 138 H Ferritin Total Bilirubin Alkaline Phosphatase Lactate Dehydrogenase Troponin T C-Reactive Protein Albumin Prealbumin LDL Cholesterol Direct Arterial Blood Glucose Arterial Blood Ionized Calcium 02/28/20 02/28/20 02/28/20 11:05 11:33 12:54 WBC RBC MCV MCH RDW Plt Count Lymph % (Auto) [place] # (Auto) Seg Neutrophils % Seg Neuts % (Manual) Lymphocytes % (Manual) Seg Neutrophils # Seg Neutrophils # Man Lymphocytes # (Manual) Monocytes # (Manual) PT INR D-Dimer ABG pH POC ABG pCO2 POC ABG pO2 ABG pO2 ABG HCO3 ABG O2 Saturation ABG Base Excess ABG Hemoglobin ABG Oxyhemoglobin ABG Potassium ABG Glucose Oxyhemoglobin Carboxyhemoglobin Sodium Potassium Chloride Carbon Dioxide BUN Creatinine Glucose POC Glucose 160 H Ferritin Total Bilirubin Alkaline Phosphatase Lactate Dehydrogenase Troponin T C-Reactive Protein 4.70 H Albumin Prealbumin 0.090 L LDL Cholesterol Direct Arterial Blood Glucose Arterial Blood Ionized Calcium 02/28/20 02/29/20 02/29/20 17:34 00:44 04:05 WBC 19.6 H RBC MCV MCH 27 L RDW 15.4 H Plt Count Lymph % (Auto) [place] # (Auto) Seg Neutrophils % Seg Neuts % (Manual) 86.0 H Lymphocytes % (Manual) 7.0 L Seg Neutrophils # Seg Neutrophils # Man 16.9 H Lymphocytes # (Manual) Monocytes # (Manual) 1.2 H PT INR D-Dimer ABG pH POC ABG pCO2 POC ABG pO2 ABG pO2 ABG HCO3 ABG O2 Saturation ABG Base Excess ABG Hemoglobin ABG Oxyhemoglobin ABG Potassium ABG Glucose Oxyhemoglobin Carboxyhemoglobin Sodium Potassium Chloride Carbon Dioxide BUN Creatinine Glucose POC Glucose 136 H 156 H Ferritin Total Bilirubin Alkaline Phosphatase Lactate Dehydrogenase Troponin T C-Reactive Protein Albumin Prealbumin LDL Cholesterol Direct Arterial Blood Glucose Arterial Blood Ionized Calcium 02/29/20 02/29/20 02/29/20 04:05 05:14 05:33 WBC RBC MCV MCH RDW Plt Count Lymph % (Auto) [place] # (Auto) Seg Neutrophils % Seg Neuts % (Manual) Lymphocytes % (Manual) Seg Neutrophils # Seg Neutrophils # Man Lymphocytes # (Manual) Monocytes # (Manual) PT INR D-Dimer ABG pH POC ABG pCO2 54.3 H POC ABG pO2 124.8 H ABG pO2 ABG HCO3 ABG O2 Saturation ABG Base Excess ABG Hemoglobin ABG Oxyhemoglobin ABG Potassium ABG Glucose 185 H Oxyhemoglobin Carboxyhemoglobin Sodium 148 H Potassium Chloride Carbon Dioxide 33 H BUN Creatinine < 0.2 L Glucose 173 H POC Glucose 152 H Ferritin Total Bilirubin Alkaline Phosphatase Lactate Dehydrogenase Troponin T C-Reactive Protein Albumin Prealbumin LDL Cholesterol Direct Arterial Blood Glucose 185 H Arterial Blood Ionized Calcium Chest x-ray: pending (pending) Allied health notes reviewed: nursing
--- NOTE | 2020-02-29 09:30 | Progress Note ---
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 Patient was on a trilogy machine for breathing 18/11. EMS arrived, patient had O2 sats in the 80s. EMS attempted to place patient on their CPAP machine, hillmeredith lopez patient did not tolerate. Patient was admitted to the ICU with diagnosis of acute hypoxic respiratory failure and placed on BiPAP. Patient initially tolerated but later deteriorated with respiratory status. Therefore, patient was intubated on 02/26/2020 at 1500. Patient now on mechanical ventilation in the ICU. --Acute hypoxic hypercapnic respiratory failure; Intubated on mechanical ventilation. Etiology secondary to sepsis, ALS, multifocal pneumonia (Covid negative). Patient is on CPAP patient --ALS --Elevated D-dimers; CTA chest, lower extremity venous Doppler both are negative Lovenox DVT prophylaxis --Bilateral pneumonia; probably community-acquired Versus atypical, empiric antibiotics Rocephin and Zithromax Cultures, check pro calcitonin --Sepsis secondary to pneumonia Leukocytosis, tachycardia, pneumonia on chest x-ray --Elevated troponin; Serial cardiac enzymes, serial EKGs Echocardiogram, cardiology consult if needed --Hypokalemia; replaced with KCl Monitor levels --Hyponatremia; IV fluids Closely monitor electrolytes --DVT prophylaxis; Lovenox Admit to ICU for close observation 02/25/2020. CTA of the chest reveals no PE but does illustrate the bilateral pneumonia. Doppler ultrasound also negative for DVT. Blood cultures are pending. Await COVID-19 testing. Patient currently requiring BiPAP IPAP 24/EPAP 6 with FiO2 of 25%. Continue O2 and BiPAP as clinically indicated. ID and pulmonary consulted. 02/26/2020. Blood cultures are negative x48 hours and Covid testing negative as well. Continue antibiotics per ID recommendations for community-acquired bilateral pneumonia. Cardiology consultation for elevated troponin. Check echocardiogram. 02/27/2020. Events of yesterday noted with asystole following V. fib arrest. Patient currently on AC mode rate 20, tidal volume 400, FiO2 50% and a PEEP of 6. Follow-up echocardiogram for elevated troponin. Cardiology suspects NSTEMI Type 2 in the setting of acute resp failure. Chest CTA and BLE Dopplers neg. we will discontinue Decadron given the Covid PCR is negative. 02/28/2020. I spoke with the sister Felisa Eli who is the power of bankruptcy attorney regarding advanced directives and she instructed me that she would like to continue with aggressive care at this time. I informed her of the guarded prognosis and high mortality/morbidity and she voiced understanding. Patient currently with AC mode ventilation rate 18, tidal volume 400, FiO2 40% and a PEEP of 6. Continue antibiotics for pneumonia. ID previously consulted. Also consult neurology with regards to ALS. 02/29/2020; patient is intubated and on CPAP patient is alert and oriented. Patient has ALS. Dr. Álvarez spoke with his sister and she wants aggressive care. Continue antibiotics for pneumonia. Neurology consulted for ALS. Prognosis poor The high probability of a clinically significant, sudden or life threatening deterioration of the [cardiac and respiratory] system(s) required my full and direct attention, intervention and personal management. The aggregate critical care time was [34] minutes. This time is in addition to time spent performing reported procedures but includes the following: [x] Data Review and interpretation [x] Patient assessment and monitoring of vital signs [x] Documentation [x] Medication orders and management History Interval history: Patient was seen and evaluated this morning Patient is intubated, CPAP Patient was alert and oriented, he said he understand plan nodding his head Hospitalist Physical - Physical exam Narrative exam: Not in cardiopulmonary distress. The patient appeared well nourished and normally developed. Vital signs as documented. Head exam is unremarkable. No scleral icterus . Neck is without jugular venous distension, thyromegaly, or carotid bruits. Lungs are clear to auscultation. Cardiac exam reveals regular rate and Rhythm. Abdominal exam reveals normal bowel sounds, nontender, no organomegaly. Extremities are nonedematous and both femoral and pedal pulses are normal. 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 - Constitutional Vitals: Temp Pulse Resp BP Pulse Ox 98.3 F 93 H 9 L 116/79 99 02/29/20 07:00 02/29/20 08:00 02/29/20 08:00 02/29/20 08:00 02/29/20 08:00 General appearance: Present: mild distress, other (Intubated on mechanical ventilation) HEART Score - HEART Score Troponin: Troponin T 0.034 ng/mL (0.00-0.029) H D 02/24/20 19:35 Results - Labs CBC & Chem 7: 02/29/20 04:05 02/29/20 04:05 Labs: Laboratory Last Values WBC 19.6 K/mm3 (4.5-11.0) H 02/29/20 04:05 RBC 4.89 M/mm3 (3.65-5.03) 02/29/20 04:05 Hgb 13.2 gm/dl (11.8-15.2) 02/29/20 04:05 Hct 41.0 % (35.5-45.6) 02/29/20 04:05 MCV 84 fl (84-94) 02/29/20 04:05 MCH 27 pg (28-32) L 02/29/20 04:05 MCHC 32 % (32-34) 02/29/20 04:05 RDW 15.4 % (13.2-15.2) H 02/29/20 04:05 Plt Count 382 K/mm3 (140-440) 02/29/20 04:05 Lymph % (Auto) 8.7 % (13.4-35.0) L 02/28/20 04:15 [place] % (Auto) 6.6 % (0.0-7.3) 02/28/20 04:15 Eos % (Auto) 0.0 % (0.0-4.3) 02/28/20 04:15 Baso % (Auto) 0.1 % (0.0-1.8) 02/28/20 04:15 Lymph # (Auto) 1.6 K/mm3 (1.2-5.4) 02/28/20 04:15 [place] # (Auto) 1.2 K/mm3 (0.0-0.8) H 02/28/20 04:15 Eos # (Auto) 0.0 K/mm3 (0.0-0.4) 02/28/20 04:15 Baso # (Auto) 0.0 K/mm3 (0.0-0.1) 02/28/20 04:15 Add Manual Diff Complete 02/29/20 04:05 Total Counted 100 02/29/20 04:05 Seg Neutrophils % 84.6 % (40.0-70.0) H 02/28/20 04:15 Seg Neuts % (Manual) 86.0 % (40.0-70.0) H 02/29/20 04:05 Band Neutrophils % 0 % 02/29/20 04:05 Lymphocytes % (Manual) 7.0 % (13.4-35.0) L 02/29/20 04:05 Reactive Lymphs % (Man) 0 % 02/29/20 04:05 Monocytes % (Manual) 6.0 % (0.0-7.3) 02/29/20 04:05 Eosinophils % (Manual) 0 % (0.0-4.3) 02/29/20 04:05 Basophils % (Manual) 0 % (0.0-1.8) 02/29/20 04:05 Metamyelocytes % 1.0 % 02/29/20 04:05 Myelocytes % 0 % 02/29/20 04:05 Promyelocytes % 0 % 02/29/20 04:05 Blast Cells % 0 % 02/29/20 04:05 Nucleated RBC % Not Reportable 02/29/20 04:05 Seg Neutrophils # 15.9 K/mm3 (1.8-7.7) H 02/28/20 04:15 Seg Neutrophils # Man 16.9 K/mm3 (1.8-7.7) H 02/29/20 04:05 Band Neutrophils # 0.0 K/mm3 02/29/20 04:05 Lymphocytes # (Manual) 1.4 K/mm3 (1.2-5.4) 02/29/20 04:05 Abs React Lymphs (Man) 0.0 K/mm3 02/29/20 04:05 Monocytes # (Manual) 1.2 K/mm3 (0.0-0.8) H 02/29/20 04:05 Eosinophils # (Manual) 0.0 K/mm3 (0.0-0.4) 02/29/20 04:05 Basophils # (Manual) 0.0 K/mm3 (0.0-0.1) 02/29/20 04:05 Metamyelocytes # 0.2 K/mm3 02/29/20 04:05 Myelocytes # 0.0 K/mm3 02/29/20 04:05 Promyelocytes # 0.0 K/mm3 02/29/20 04:05 Blast Cells # 0.0 K/mm3 02/29/20 04:05 WBC Morphology Not Reportable 02/29/20 04:05 Hypersegmented Neuts Not Reportable 02/29/20 04:05 Hyposegmented Neuts Not Reportable 02/29/20 04:05 Hypogranular Neuts Not Reportable 02/29/20 04:05 Smudge Cells Not Reportable 02/29/20 04:05 Toxic Granulation Not Reportable 02/29/20 04:05 Toxic Vacuolation Not Reportable 02/29/20 04:05 Dohle Bodies Not Reportable 02/29/20 04:05 Pelger-Huet Anomaly Not Reportable 02/29/20 04:05 Robert Rods Not Reportable 02/29/20 04:05 Platelet Estimate Consistent w auto 02/29/20 04:05 Clumped Platelets Not Reportable 02/29/20 04:05 Plt Clumps, EDTA Not Reportable 02/29/20 04:05 Large Platelets Not Reportable 02/29/20 04:05 Giant Platelets Not Reportable 02/29/20 04:05 Platelet Satelliting Not Reportable 02/29/20 04:05 Plt Morphology Comment Not Reportable 02/29/20 04:05 RBC Morphology Not Reportable 02/29/20 04:05 Dimorphic RBCs Not Reportable 02/29/20 04:05 Polychromasia Not Reportable 02/29/20 04:05 Hypochromasia Not Reportable 02/29/20 04:05 Poikilocytosis Not Reportable 02/29/20 04:05 Anisocytosis Few 02/29/20 04:05 Microcytosis Few 02/29/20 04:05 Macrocytosis Not Reportable 02/29/20 04:05 Spherocytes Not Reportable 02/29/20 04:05 Pappenheimer Bodies Not Reportable 02/29/20 04:05 Sickle Cells Not Reportable 02/29/20 04:05 Target Cells Not Reportable 02/29/20 04:05 Tear Drop Cells Not Reportable 02/29/20 04:05 Ovalocytes Not Reportable 02/29/20 04:05 Helmet Cells Not Reportable 02/29/20 04:05 Gregory-Duran Bodies Not Reportable 02/29/20 04:05 [place] Rings Not Reportable 02/29/20 04:05 Riaz Cells Not Reportable 02/29/20 04:05 Bite Cells Not Reportable 02/29/20 04:05 Crenated Cell Not Reportable 02/29/20 04:05 Elliptocytes Not Reportable 02/29/20 04:05 Acanthocytes (Spur) Not Reportable 02/29/20 04:05 Rouleaux Not Reportable 02/29/20 04:05 Hemoglobin C Crystals Not Reportable 02/29/20 04:05 Schistocytes Not Reportable 02/29/20 04:05 Malaria parasites Not Reportable 02/29/20 04:05 [place] Bodies Not Reportable 02/29/20 04:05 Hem Pathologist Commnt No 02/29/20 04:05 PT 15.6 Sec. (12.2-14.9) H 02/24/20 09:19 INR 1.21 (0.87-1.13) H 02/24/20 09:19 APTT 25.4 Sec. (24.2-36.6) 02/24/20 09:19 D-Dimer 1311.96 ng/mlDDU (0-234) H 02/24/20 09:19 ABG pH 7.431 (7.320-7.450) 02/29/20 05:14 POC ABG pCO2 54.3 mmHg (32.0-48.0) H 02/29/20 05:14 ABG pCO2 51.7 mm Hg 02/28/20 05:39 POC ABG pO2 124.8 mmHg (83-108) H 02/29/20 05:14 ABG pO2 142.9 mm Hg (80.0-90.0) H 02/28/20 05:39 POC ABG HCO3 35.3 02/29/20 05:14 ABG HCO3 34.1 mmol/L (20.0-26.0) H 02/28/20 05:39 ABG O2 Saturation 98.7 % (95.0-99.0) 02/28/20 05:39 ABG O2 Content 19.5 (0.0-44) 02/28/20 05:39 POC ABG Base Excess 9.1 02/29/20 05:14 ABG Base Excess 8.3 mmol/L (-2.0-3.0) H 02/28/20 05:39 ABG Hemoglobin 14 (12.0-17.5) 02/29/20 05:14 ABG Oxyhemoglobin 99.2 (94-98) H 02/26/20 17:00 ABG Carboxyhemoglobin 1.1 % (0.0-5.0) 02/28/20 05:39 ABG Methemoglobin 0.7 % (0.0-1.5) 02/28/20 05:39 ABG Sodium 144.3 mmol/L (136.0-145.0) 02/29/20 05:14 ABG Potassium 4.0 mmol/L (3.40-4.50) 02/29/20 05:14 ABG Chloride 103.0 mmol/L (98-107) 02/29/20 05:14 ABG Glucose 185 mg/dL (65-95) H 02/29/20 05:14 Oxyhemoglobin 97.0 % (95.0-99.0) 02/28/20 05:39 Carboxyhemoglobin 0.4 (0.5-1.5) L 02/26/20 17:00 FiO2 40.0 02/29/20 05:14 Sodium 148 mmol/L (137-145) H 02/29/20 04:05 Potassium 4.2 mmol/L (3.6-5.0) 02/29/20 04:05 Chloride 104.6 mmol/L (98-107) 02/29/20 04:05 Carbon Dioxide 33 mmol/L (22-30) H 02/29/20 04:05 Anion Gap 15 mmol/L 02/29/20 04:05 BUN 15 mg/dL (9-20) 02/29/20 04:05 Creatinine < 0.2 mg/dL (0.8-1.3) L 02/29/20 04:05 Estimated GFR > 60 ml/min 02/29/20 04:05 BUN/Creatinine Ratio 75 % 02/29/20 04:05 Glucose 173 mg/dL (75-100) H 02/29/20 04:05 POC Glucose 152 mg/dL (70-105) H 02/29/20 05:33 Lactic Acid 1.00 mmol/L (0.7-2.0) 02/24/20 12:07 Calcium 8.5 mg/dL (8.4-10.2) 02/29/20 04:05 Magnesium 2.30 mg/dL (1.7-2.3) 02/25/20 04:00 Ferritin 1715.0 ng/mL (30.0-300.0) H 02/24/20 10:01 Total Bilirubin 0.80 mg/dL (0.1-1.2) 02/25/20 04:00 AST 17 units/L (5-40) 02/25/20 04:00 ALT 21 units/L (7-56) 02/25/20 04:00 Alkaline Phosphatase 105 units/L (35-129) 02/25/20 04:00 Lactate Dehydrogenase 303 units/L (91-180) H 02/24/20 09:19 Total Creatine Kinase 101 units/L (55-170) 02/24/20 19:35 CK-MB (CK-2) 3.5 ng/mL (0.0-4.0) 02/24/20 19:35 CK-MB (CK-2) Rel Index 3.4 (0-4) 02/24/20 19:35 Troponin T 0.034 ng/mL (0.00-0.029) H D 02/24/20 19:35 C-Reactive Protein 4.70 mg/dL (0.00-1.30) H 02/28/20 11:05 NT-Pro-B Natriuret Pep 48.30 pg/mL (0-900) 02/24/20 09:19 Total Protein 6.5 g/dL (6.3-8.2) 02/25/20 04:00 Albumin 3.5 g/dL (3.9-5) L 02/25/20 04:00 Albumin/Globulin Ratio 1.2 % 02/25/20 04:00 Prealbumin 0.090 g/L (0.200-0.400) L 02/28/20 12:54 Triglycerides 60 mg/dL (2-149) 02/24/20 09:19 Cholesterol 104 mg/dL (50-199) 02/24/20 09:19 LDL Cholesterol Direct 41 mg/dL (50-130) L 02/24/20 09:19 HDL Cholesterol 45 mg/dL (40-59) 02/24/20 09:19 Cholesterol/HDL Ratio 2.31 % 02/24/20 09:19 Procalcitonin 1.68 ng/mL (<0.15) 02/28/20 14:51 Arterial Blood Glucose 185 mg/dL (65-95) H 02/29/20 05:14 Arterial Blood Ionized Calcium 4.6 mg/dL (4.6-5.3) 02/29/20 05:14 Coronavirus (PCR) Negative (Negative) 02/25/20 09:03 Microbiology: Microbiology 02/26/20 17:40 Tracheal Aspirate Sputum Culture - Final 02/24/20 09:19 Peripheral/Venous Blood Culture - Preliminary NO GROWTH AFTER 4 DAYS 02/24/20 09:19 Peripheral/Venous Blood Culture - Preliminary NO GROWTH AFTER 4 DAYS - Diagnostic Impressions Diagnostic Impressions: Echocardiogram 02/26/20 10:41 Transthoracic Echocardiogram Indication: Elevated Trop BP: 116/75 HR: 85 Conclusions *Global left ventricular wall motion and contractility are within normal limits. *The estimated ejection fraction is 50-55%. *Abnormal left ventricular diastolic filling is observed, consistent with impaired relaxation. *There is no pericardial effusion. Findings Left Ventricle: The left ventricular chamber size is normal. Global left ventricular wall motion and contractility are within normal limits. Global left ventricular systolic function is normal. The estimated ejection fraction is 50-55%. Abnormal left ventricular diastolic filling is observed, consistent with impaired relaxation. Left Atrium: The left atrial chamber size is normal. Right Ventricle: The right ventricular cavity size is normal. Right Atrium: The right atrial cavity size is normal. Aortic Valve: Mild aortic leaflet calcification is visualized. There is no evidence of aortic regurgitation. Mitral Valve: The mitral valve leaflets are mildly thickened. There is no evidence of mitral regurgitation. Tricuspid Valve: The tricuspid valve leaflets are normal. There is trace tricuspid regurgitation. The right ventricular systolic pressure is calculated at 29 mmHg. Pulmonic Valve: The pulmonic valve is not well visualized. Pericardium: There is no pericardial effusion. Aorta: The aorta appears normal. Venous: The inferior vena cava is dilated. There is less than 50% respiratory change in the inferior vena cava dimension. Measurements Chambers 2D Name Value Normal Range IVSd (2D) 0.97 cm (0.6 - 1.1) LVPWd (2D) 0.93 cm (0.6 - 1.1) LVIDd (2D) 4 cm (3.7 - 5.6) LVIDs (2D) 2.73 cm (2 - 3.8) LV FS (2D) 31.67 % - EF Teichholz (2D) 60.23 % - Ao root diameter (2D) 3.51 cm (2 - 3.7) Volumes/Mass Name Value Normal Range LA ESV SP 4CH (A/L) 8.43 ml - LA ESV SP 2CH (A/L) 18.89 ml - LA ESV BP (A/L) 13.02 ml - LA ESV BP (A/L) index 8.8 ml/m2 - LA ESV SP 4CH (MOD) 7.22 ml - LA ESV SP 2CH (MOD) 18.15 ml - LA ESV BP (MOD) 11.47 ml - LA ESV BP (MOD) index 7.75 ml/m2 - Diastolic/Systolic Function Name Value Normal Range MV E-wave Vmax 0.51 m/sec - MV deceleration time 180.22 msec - MV A-wave Vmax 0.62 m/sec - MV E:A ratio 0.82 ratio - Aortic Valve Name Value Normal Range AV Vmax 1.17 m/sec - AV VTI 19.71 cm - AV peak gradient 5.44 mmHg - AV mean gradient 3.38 mmHg - LVOT diameter 2.26 cm - LVOT Vmax 0.89 m/sec - LVOT VTI 13.72 cm - LVOT peak gradient 3.17 mmHg - LVOT mean gradient 1.67 mmHg - SV LVOT 55.03 ml - SHARAD (continuity Vmax) 3.06 cm2 - SHARAD (continuity VTI) 2.79 cm2 - Tricuspid Valve Name Value Normal Range TR Vmax 2.3 m/sec - TR peak gradient 21 mmHg - RAP 8 mmHg - RVSP 29 mmHg - IVC diameter 2.59 cm (1.2 - 2.3) Pulmonic Valve/Qp:Qs Name Value Normal Range PV acceleration time 68.51 msec - Reardon/IV: Voiding Method Condom Catheter IV Catheter Type [Right INT / Saline Lock Forearm] IV Catheter Type [Right Triple Lumen Cath Internal Jugular] IV Catheter Type [Left Forearm INT / Saline Lock ] IV Catheter Type [Right Triple Lumen Cath Femoral] IV Catheter Type [Right Peripheral IV Antecubital] Active Medications - Current Medications Current Medications: Generic Name Dose Route Start Last Admin Trade Name Freq PRN Reason Stop Dose Admin Acetaminophen 650 mg 02/24/20 15:13 02/28/20 09:18 Tylenol PO 650 mg Q4H PRN Administration Pain, Mild (1-3) Albuterol 2.5 mg 02/24/20 15:13 Proventil IH Q4HRT PRN Shortness Of Breath Lipase/Protease/Amylase 1 each 02/26/20 11:[address] 10,500 Unit FEEDTUBE PRN PRN For Clogged Feeding Tube Enoxaparin Sodium 40 mg 02/24/20 22:00 02/28/20 21:36 Enoxaparin SUB-Q 40 mg QDAY@2200 ALISA Administration Protocol Ceftriaxone Sodium 2 gm in 100 mls @ 200 mls/hr 02/25/20 10:00 02/28/20 09:50 Rocephin/Ns 2 Gm/100 Ml IV 02/29/20 10:29 Infused Q24HR ALISA Infusion Protocol Dopamine HCl/Dextrose 800 mg in 250 mls @ 3.338 mls/hr 02/26/20 16:00 02/26/20 17:11 Intropin Drip 800 Mg/D5w 250 Ml IV 0 mcg/kg/min TITR ALISA 0 mls/hr Titration Protocol 2 MCG/KG/MIN Azithromycin 500 mg/ Sodium 250 mls @ 250 mls/hr 02/28/20 10:00 02/28/20 10:20 Chloride IV 03/01/20 00:00 Infused Q24HR ALISA Infusion Protocol Lansoprazole 30 mg 02/28/20 10:00 02/28/20 09:16 Prevacid Solutab FEEDTUBE 30 mg QDAY ALISA Administration Metoprolol Tartrate 12.5 mg 02/24/20 22:00 02/28/20 21:37 Metoprolol PO 12.5 mg BID ALISA Administration Simple Syrup 15 ml 02/26/20 11:16 Simple Syrup FEEDTUBE PRN PRN Hypoglycemia Simple Syrup 30 ml 02/26/20 11:16 Simple Syrup FEEDTUBE PRN PRN Hypoglycemia Sodium Bicarbonate 325 mg 02/26/20 11:16 Sodium Bicarbonate FEEDTUBE PRN PRN For Clogged Feeding Tube Nutrition/Malnutrition Assess - Dietary Evaluation Nutrition/Malnutrition Findings: Nutrition Notes Start: 02/26/20 10:40 Freq: Status: Active Protocol: Document 02/26/20 10:41 LM (Rec: 02/26/20 10:47 LM [email or web address]) Nutrition Notes Need for Assessment generated from: MD Order,process tech Initial or Follow up Assessment Current Diagnosis Decubitus(Pressure Ulcer), Sepsis,Respiratory Failure Other Pertinent Diagnosis Suspected COVID-19, pneumonia, Hip/buttock PU Current Diet TF Labs/Tests K 3.2 Pertinent Medications Decadron KCl at 100ml/hr Height 6 ft Weight 89 kg [place] Body Weight (kg) 80.90 BMI 26.6 Weight Status Overweight Subjective/Other Information MD consult for TF. RN screen for skin risk. Santy score is 12. Pt has hip and buttock PUs. Unable to speak to pt. Pt is on bipap and refused 2 meals yesterday per chart. Burn Absent Trauma Absent Current % PO Poor (25-49%) Minimum of two criteria No physical signs of malnutrition #2 Nutrition Diagnosis Inadequate oral intake Etiology Suspected COVID-19, chronic illness As Evidenced by Signs and Symptoms Pt requiring TF, refusing meals #1 Nutrition Diagnosis Increased nutrient needs ( specify in comment below) Comments: Protein Etiology Wound healing As Evidenced by Signs and Symptoms Pt has buttock and hip PUs Is patient on ventilator? No Is Patient Ambulatory and/or Out of Bed No REE-([facility]-confined to bed) [phone] Calculation Used for Recommendations [facility] Additional Notes Protein: 111-134g (1.25-1.5g/ kg) Fluid: 1ml/kcal Nutrition Intervention Change Diet Order: TF Nutrition Support: Osmolite 1.5 at 60ml/hr Flush 180ml q4h Kcal 2,160 Protein (gm) 90 Fluid (mL) 1,097 Add Supplement/Snack (indicate name/kcal Will BID /protein ) Goal #1 Meet at least 80% of energy and protein needs Goal #2 Wound healing Anticipated Discharge Needs: Unable to determine at this time Follow-Up By: 02/29/20 Additional Comments F/U for TF start/tolerance, Will
--- NOTE | 2020-02-29 10:29 | Progress Note ---
Assessment and Plan Cultures: Blood culture no growth today SARS CoV2 PCR negative Sputum culture with normal respiratory bernice. Assessment: 59 years old female with history of ALS with chronic respiratory failure on home trilogy BiPAP, admitted on 02/24/2020 due to worsening shortness of breath for 24 hours: #Severe sepsis: likely due to bilateral pneumonia. Remains with low-grade fever, leukocytosis likely due to high-dose steroid received initially. #Severe bilateral pneumonia: Likely community-acquired pneumonia. Procalcitonin elevated-1.13. CTA shows no PE but multifocal pneumonia with predominance left lower lobe. No DVT on US. Elevated D-dimer -1311. SARS-CoV-2 PCR negative. Sputum culture normal respiratory bernice. CRP 26-->4. Prcal 1.1-->1.6 #Acute on chronic mixed respiratory failure: Intubated, re intubated overnight. #ALS Recommendations: -Continue ceftriaxone and azithromycin day 5 of 7 - extended due to increasing procal -Monitor fever Will follow Diana Maravilla MD Infectious Diseases Table Cut Off Saw Operator [facility] M [phone] O [phone] Subjective Date of service: 02/29/20 Principal diagnosis: Ac on Ch Hypercapnic & hypoxemic Resp Failure; Severe Sepsis; Jamar PNA; ALS Interval history: Remains intubated, fever 100.4, no acute event Objective - Exam Narrative Exam: General appearance: Intubated, alert follows commands Eyes: anicteric sclerae, moist conjunctivae; no lid-lag; PERRLA HENT: Normocephalic, Atraumatic; normal external ears, nares open, oropharynx limited, endotracheal tube in place, NG tube Neck: supple, tracheal midline, no JVD Lungs: Bilateral rhonchi CV: RRR no murmur Abdomen: Soft, non-tender; no masses or hepatosplenomegaly Extremities: no edema, no cyanosis Skin: No rash. Psych: no agitated Neuro: Alert on the ventilator - Constitutional Vitals: Vital Signs Temp Pulse Resp BP Pulse Ox 98.3 F 93 H 9 L 116/79 99 02/29/20 07:00 02/29/20 08:00 02/29/20 08:00 02/29/20 08:00 02/29/20 08:00 Temperature -Last 24 Hours Temperature 98.3 F Temperature 99.6 F Temperature 100.4 F Temperature 98.9 F Temperature 98.3 F Temperature 98.4 F - Labs CBC & Chem 7: 02/29/20 04:05 02/29/20 04:05 Labs: Abnormal lab results 02/28/20 02/28/20 02/28/20 Range/Units 11:05 11:33 12:54 WBC (4.5-11.0) K/mm3 MCH (28-32) pg RDW (13.2-15.2) % Seg Neuts % (Manual) (40.0-70.0) % Lymphocytes % (Manual) (13.4-35.0) % Seg Neutrophils # Man (1.8-7.7) K/mm3 Monocytes # (Manual) (0.0-0.8) K/mm3 POC ABG pCO2 (32.0-48.0) mmHg POC ABG pO2 (83-108) mmHg ABG Glucose (65-95) mg/dL Sodium (137-145) mmol/L Carbon Dioxide (22-30) mmol/L Creatinine (0.8-1.3) mg/dL Glucose (75-100) mg/dL POC Glucose 160 H (70-105) mg/dL C-Reactive Protein 4.70 H (0.00-1.30) mg/dL Prealbumin 0.090 L (0.200-0.400) g/L Arterial Blood Glucose (65-95) mg/dL 02/28/20 02/29/20 02/29/20 Range/Units 17:34 00:44 04:05 WBC 19.6 H (4.5-11.0) K/mm3 MCH 27 L (28-32) pg RDW 15.4 H (13.2-15.2) % Seg Neuts % (Manual) 86.0 H (40.0-70.0) % Lymphocytes % (Manual) 7.0 L (13.4-35.0) % Seg Neutrophils # Man 16.9 H (1.8-7.7) K/mm3 Monocytes # (Manual) 1.2 H (0.0-0.8) K/mm3 POC ABG pCO2 (32.0-48.0) mmHg POC ABG pO2 (83-108) mmHg ABG Glucose (65-95) mg/dL Sodium (137-145) mmol/L Carbon Dioxide (22-30) mmol/L Creatinine (0.8-1.3) mg/dL Glucose (75-100) mg/dL POC Glucose 136 H 156 H (70-105) mg/dL C-Reactive Protein (0.00-1.30) mg/dL Prealbumin (0.200-0.400) g/L Arterial Blood Glucose (65-95) mg/dL 02/29/20 02/29/20 02/29/20 Range/Units 04:05 05:14 05:33 WBC (4.5-11.0) K/mm3 MCH (28-32) pg RDW (13.2-15.2) % Seg Neuts % (Manual) (40.0-70.0) % Lymphocytes % (Manual) (13.4-35.0) % Seg Neutrophils # Man (1.8-7.7) K/mm3 Monocytes # (Manual) (0.0-0.8) K/mm3 POC ABG pCO2 54.3 H (32.0-48.0) mmHg POC ABG pO2 124.8 H (83-108) mmHg ABG Glucose 185 H (65-95) mg/dL Sodium 148 H (137-145) mmol/L Carbon Dioxide 33 H (22-30) mmol/L Creatinine < 0.2 L (0.8-1.3) mg/dL Glucose 173 H (75-100) mg/dL POC Glucose 152 H (70-105) mg/dL C-Reactive Protein (0.00-1.30) mg/dL Prealbumin (0.200-0.400) g/L Arterial Blood Glucose 185 H (65-95) mg/dL
[2020-02-29] MEDS: METOPROLOL TARTRATE 25 MG TAB PO SCH ×2 (12:17→21:31)
[2020-02-29] MEDS: cefTRIAXone/NS 2 GM/100 ML 2 GM/100 ML BAG IV SCH (12:18)
[2020-02-29] MEDS: AZITHROMYCIN 500 MG in SODIUM CHLORIDE 0.9% 250ML 250 ML IV SCH (12:19)
[2020-02-29] MEDS: LANSOPRAZOLE 30 MG SOLUTAB FEEDTUBE SCH (12:19)
--- NOTE | 2020-02-29 14:28 | Progress Note ---
Assessment and Plan Echo findings noted (as below). Continue present mgmt per Primary teams. May consider ischemic eval if pt stabilizes from a respiratory standpoint. Nothing further to add from a Cardiology perspective at this time. Will see PRN. Pt seen in conjunction with Dr. Raphael Moise, who agrees with the assessment and plan of care. - Patient Problems (1) Acute and chronic respiratory failure ([id number]) Current Visit: Yes Status: Acute (2) Pneumonia Current Visit: Yes Status: Acute Qualifiers: Laterality: bilateral (3) Sepsis Current Visit: Yes Status: Acute (4) Toxic metabolic encephalopathy Current Visit: Yes Status: Acute (5) NSTEMI (non-ST elevated myocardial infarction) Current Visit: Yes Status: Acute Plan to address problem: Type 2 (6) Elevated d-dimer Current Visit: Yes Status: Acute Plan to address problem: Chest CTA & BLE Dopplers neg (7) ALS (amyotrophic lateral sclerosis) Current Visit: Yes Status: Chronic (8) ETOH abuse Current Visit: Yes Status: Chronic Subjective Date of service: 02/29/20 Principal diagnosis: A/C Resp Failure; Severe Sepsis; Jamar PNA; ALS Interval history: Pt remains intubated/on mech vent. No acute events reported. Tele reviewed - SR 80s - low 100s w/no acute events noted overnight. Objective Last Vital Signs Temp 98.9 F 02/29/20 11:00 Pulse 87 02/29/20 13:00 Resp 8 L 02/29/20 13:00 BP 110/79 02/29/20 13:00 Pulse Ox 99 02/29/20 13:00 - Physical Examination General: No Apparent Distress HEENT: Positive: Normocephaly Neck: Positive: neck supple. Negative: JVD/HJR Cardiac: Positive: Reg Rate and Rhythm, S1/S2 Lungs: Positive: Decreased Breath Sounds Neuro: Positive: Other (unable to assess) Abdomen: Positive: Soft, Active Bowel Sounds Skin: Positive: Wound. Negative: Rash Musculoskeletal: No Fluid Collection Extremities: Present: lower extr. pulses. Absent: edema - Labs and Meds CBC 02/29/20 Range/Units 04:05 WBC 19.6 H (4.5-11.0) K/mm3 RBC 4.89 (3.65-5.03) M/mm3 Hgb 13.2 (11.8-15.2) gm/dl Hct 41.0 (35.5-45.6) % Plt Count 382 (140-440) K/mm3 Comprehensive Metabolic Panel 02/29/20 Range/Units 04:05 Sodium 148 H (137-145) mmol/L Potassium 4.2 (3.6-5.0) mmol/L Chloride 104.6 (98-107) mmol/L Carbon Dioxide 33 H (22-30) mmol/L BUN 15 (9-20) mg/dL Creatinine < 0.2 L (0.8-1.3) mg/dL Glucose 173 H (75-100) mg/dL Calcium 8.5 (8.4-10.2) mg/dL - Imaging and Cardiology EKG: report reviewed, image reviewed Echo: report reviewed (02/26/2020 - EF 50-55%; impaired LV relaxation; no pericardial effusion) - Telemetry EKG Rhythm: Sinus Rhythm - EKG Sinus rhythms and dysrhythmias: sinus tachycardia Repolarization changes or abnormalities: nonspecific abnormality, ST segment, and/or T wave - Allied health notes Allied health notes reviewed: nursing
[2020-02-29] MEDS ORDERED: fentaNYL 100 MCG/2 ML INJ IV PRN (15:47)
[2020-02-29] MEDS ORDERED: fentaNYL DRIP Premix 2,000 MCG/100 ML BAG IV SCH (16:00)
[2020-02-29] MEDS: MORPHINE 2 MG/1 ML INJ IV PRN (16:57)
[2020-02-29] MEDS: ENOXAPARIN 40 MG/0.4 ML INJ SUB-Q SCH (21:31)
[2020-03-01 04:08] LABS: ABG Base Excess 8.1 mmol/L (-2.0-3.0); ABG HCO3 32.3 mmol/L (20.0-26.0); ABG Methemoglobin 0.7 % (0.0-1.5); ABG PCO2 43.1 mm Hg; ABG PH 7.492 pH Units (7.350-7.450); ABG PO2 157.1 mm Hg (80.0-90.0)
[2020-03-01 06:04] LABS: Hematocrit 38.7 % (35.5-45.6); Hemoglobin 12.4 gm/dl (11.8-15.2); Mean Corpuscular HGB Conc 32 % (32-34); Mean Corpuscular Volume 84 fl (84-94); Platelet Count 405 K/mm3 (140-440); Red Blood Count 4.58 M/mm3 (3.65-5.03); Red Cell Distribution Width 15.3 % (13.2-15.2)
[2020-03-01 06:10] LABS: BUN/Creatinine Ratio 85; Blood Urea Nitrogen 17 mg/dL (9-20); Calcium 8.5 mg/dL (8.4-10.2); Hemolysis Index 1
[2020-03-01] MEDS: MORPHINE 2 MG/1 ML INJ IV PRN ×3 (06:41→21:26)
[2020-03-01 07:56] LABS: Basophils % (Manual) 0 % (0.0-1.8); Monocytes % (Manual) 0 % (0.0-7.3); Total Cells Counted 100
[2020-03-01 07:57] LABS: Anisocytosis Few; Platelet Estimate Consistent w Auto
--- NOTE | 2020-03-01 09:23 | Progress Note ---
Assessment and Plan Assessment and plan: 59-year-old male patient with significant past medical history of ALS, presented to ED with worsening shortness of breath since the morning ALIGNER. Patient was on a trilogy machine for breathing 18/11. EMS arrived, patient had O2 sats in the 80s. EMS attempted to place patient on their CPAP machine, hillmeredith lopez patient did not tolerate. Patient was admitted to the ICU with diagnosis of acute hypoxic respiratory failure and placed on BiPAP. Patient initially tolerated but later deteriorated with respiratory status. Therefore, patient was intubated on 02/26/2020 at 1500. Patient now on mechanical ventilation in the ICU. --Acute hypoxic hypercapnic respiratory failure; Intubated on mechanical ventilation. Etiology secondary to sepsis, ALS, multifocal pneumonia (Covid negative). Patient is on CPAP patient --ALS --Elevated D-dimers; CTA chest, lower extremity venous Doppler both are negative Lovenox DVT prophylaxis --Bilateral pneumonia; probably community-acquired Versus atypical, empiric antibiotics Rocephin and Zithromax Cultures, check pro calcitonin --Sepsis secondary to pneumonia Leukocytosis, tachycardia, pneumonia on chest x-ray --Elevated troponin; Serial cardiac enzymes, serial EKGs Echocardiogram, cardiology consult if needed --Hypokalemia; replaced with KCl Monitor levels --Hyponatremia; IV fluids Closely monitor electrolytes --DVT prophylaxis; Lovenox Admit to ICU for close observation 02/25/2020. CTA of the chest reveals no PE but does illustrate the bilateral pneumonia. Doppler ultrasound also negative for DVT. Blood cultures are pending. Await COVID-19 testing. Patient currently requiring BiPAP IPAP 24/EPAP 6 with FiO2 of 25%. Continue O2 and BiPAP as clinically indicated. ID and pulmonary consulted. 02/26/2020. Blood cultures are negative x48 hours and Covid testing negative as well. Continue antibiotics per ID recommendations for community-acquired bilateral pneumonia. Cardiology consultation for elevated troponin. Check echocardiogram. 02/27/2020. Events of yesterday noted with asystole following V. fib arrest. Patient currently on AC mode rate 20, tidal volume 400, FiO2 50% and a PEEP of 6. Follow-up echocardiogram for elevated troponin. Cardiology suspects NSTEMI Type 2 in the setting of acute resp failure. Chest CTA and BLE Dopplers neg. we will discontinue Decadron given the Covid PCR is negative. 02/28/2020. I spoke with the sister Felisa Eli who is the power of obiee consultant regarding advanced directives and she instructed me that she would like to continue with aggressive care at this time. I informed her of the guarded prognosis and high mortality/morbidity and she voiced understanding. Patient currently with AC mode ventilation rate 18, tidal volume 400, FiO2 40% and a PEEP of 6. Continue antibiotics for pneumonia. ID previously consulted. Also consult neurology with regards to ALS. 02/29/2020; patient is intubated and on CPAP patient is alert and oriented. Patient has ALS. Dr. Álvarez spoke with his sister and she wants aggressive care. Continue antibiotics for pneumonia. Neurology consulted for ALS. Prognosis poor 03/01/2020; patient is intubated and on CPAP, patient is alert and oriented. I spoke with his 2 sisters about the management plan. The high probability of a clinically significant, sudden or life threatening deterioration of the [cardiac and respiratory] system(s) required my full and direct attention, intervention and personal management. The aggregate critical care time was [34] minutes. This time is in addition to time spent performing reported procedures but includes the following: [x] Data Review and interpretation [x] Patient assessment and monitoring of vital signs [x] Documentation [x] Medication orders and management History Interval history: Patient was seen and evaluated this morning Patient is intubated, CPAP Patient was alert and oriented, he said he understand plan nodding his head Hospitalist Physical - Physical exam Narrative exam: Not in cardiopulmonary distress. The patient appeared well nourished and normally developed. Vital signs as documented. Head exam is unremarkable. No scleral icterus . Neck is without jugular venous distension, thyromegaly, or carotid bruits. Lungs are clear to auscultation. Cardiac exam reveals regular rate and Rhythm. Abdominal exam reveals normal bowel sounds, nontender, no organomegaly. Extremities are nonedematous and both femoral and pedal pulses are normal. 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 - Constitutional Vitals: Temp Pulse Resp BP Pulse Ox 98.9 F 78 20 104/76 98 03/01/20 03:42 03/01/20 07:42 03/01/20 07:42 03/01/20 07:42 03/01/20 07:42 General appearance: Present: mild distress, other (Intubated on mechanical ventilation) HEART Score - HEART Score Troponin: Troponin T 0.034 ng/mL (0.00-0.029) H D 02/24/20 19:35 Results - Labs CBC & Chem 7: 03/01/20 04:33 03/01/20 04:33 Labs: Laboratory Last Values WBC 23.1 K/mm3 (4.5-11.0) H 03/01/20 04:33 RBC 4.58 M/mm3 (3.65-5.03) 03/01/20 04:33 Hgb 12.4 gm/dl (11.8-15.2) 03/01/20 04:33 Hct 38.7 % (35.5-45.6) 03/01/20 04:33 MCV 84 fl (84-94) 03/01/20 04:33 MCH 27 pg (28-32) L 03/01/20 04:33 MCHC 32 % (32-34) 03/01/20 04:33 RDW 15.3 % (13.2-15.2) H 03/01/20 04:33 Plt Count 405 K/mm3 (140-440) 03/01/20 04:33 Lymph % (Auto) 8.7 % (13.4-35.0) L 02/28/20 04:15 Tama % (Auto) 6.6 % (0.0-7.3) 02/28/20 04:15 Eos % (Auto) 0.0 % (0.0-4.3) 02/28/20 04:15 Baso % (Auto) 0.1 % (0.0-1.8) 02/28/20 04:15 Lymph # (Auto) 1.6 K/mm3 (1.2-5.4) 02/28/20 04:15 Tama # (Auto) 1.2 K/mm3 (0.0-0.8) H 02/28/20 04:15 Eos # (Auto) 0.0 K/mm3 (0.0-0.4) 02/28/20 04:15 Baso # (Auto) 0.0 K/mm3 (0.0-0.1) 02/28/20 04:15 Add Manual Diff Complete 03/01/20 04:33 Total Counted 100 03/01/20 04:33 Seg Neutrophils % 84.6 % (40.0-70.0) H 02/28/20 04:15 Seg Neuts % (Manual) 92.0 % (40.0-70.0) H 03/01/20 04:33 Band Neutrophils % 0 % 03/01/20 04:33 Lymphocytes % (Manual) 6.0 % (13.4-35.0) L 03/01/20 04:33 Reactive Lymphs % (Man) 0 % 03/01/20 04:33 Monocytes % (Manual) 0 % (0.0-7.3) 03/01/20 04:33 Eosinophils % (Manual) 2.0 % (0.0-4.3) 03/01/20 04:33 Basophils % (Manual) 0 % (0.0-1.8) 03/01/20 04:33 Metamyelocytes % 0 % 03/01/20 04:33 Myelocytes % 0 % 03/01/20 04:33 Promyelocytes % 0 % 03/01/20 04:33 Blast Cells % 0 % 03/01/20 04:33 Nucleated RBC % Not Reportable 03/01/20 04:33 Seg Neutrophils # 15.9 K/mm3 (1.8-7.7) H 02/28/20 04:15 Seg Neutrophils # Man 21.3 K/mm3 (1.8-7.7) H 03/01/20 04:33 Band Neutrophils # 0.0 K/mm3 03/01/20 04:33 Lymphocytes # (Manual) 1.4 K/mm3 (1.2-5.4) 03/01/20 04:33 Abs React Lymphs (Man) 0.0 K/mm3 03/01/20 04:33 Monocytes # (Manual) 0.0 K/mm3 (0.0-0.8) 03/01/20 04:33 Eosinophils # (Manual) 0.5 K/mm3 (0.0-0.4) H 03/01/20 04:33 Basophils # (Manual) 0.0 K/mm3 (0.0-0.1) 03/01/20 04:33 Metamyelocytes # 0.0 K/mm3 03/01/20 04:33 Myelocytes # 0.0 K/mm3 03/01/20 04:33 Promyelocytes # 0.0 K/mm3 03/01/20 04:33 Blast Cells # 0.0 K/mm3 03/01/20 04:33 WBC Morphology Not Reportable 03/01/20 04:33 Hypersegmented Neuts Not Reportable 03/01/20 04:33 Hyposegmented Neuts Not Reportable 03/01/20 04:33 Hypogranular Neuts Not Reportable 03/01/20 04:33 Smudge Cells Not Reportable 03/01/20 04:33 Toxic Granulation Not Reportable 03/01/20 04:33 Toxic Vacuolation Not Reportable 03/01/20 04:33 Dohle Bodies Not Reportable 03/01/20 04:33 Pelger-Huet Anomaly Not Reportable 03/01/20 04:33 Robert Rods Not Reportable 03/01/20 04:33 Platelet Estimate Consistent w auto 03/01/20 04:33 Clumped Platelets Not Reportable 03/01/20 04:33 Plt Clumps, EDTA Not Reportable 03/01/20 04:33 Large Platelets Not Reportable 03/01/20 04:33 Giant Platelets Not Reportable 03/01/20 04:33 Platelet Satelliting Not Reportable 03/01/20 04:33 Plt Morphology Comment Not Reportable 03/01/20 04:33 RBC Morphology Not Reportable 03/01/20 04:33 Dimorphic RBCs Not Reportable 03/01/20 04:33 Polychromasia Not Reportable 03/01/20 04:33 Hypochromasia Not Reportable 03/01/20 04:33 Poikilocytosis Not Reportable 03/01/20 04:33 Anisocytosis Few 03/01/20 04:33 Microcytosis Few 03/01/20 04:33 Macrocytosis Not Reportable 03/01/20 04:33 Spherocytes Not Reportable 03/01/20 04:33 Pappenheimer Bodies Not Reportable 03/01/20 04:33 Sickle Cells Not Reportable 03/01/20 04:33 Target Cells Not Reportable 03/01/20 04:33 Tear Drop Cells Not Reportable 03/01/20 04:33 Ovalocytes Not Reportable 03/01/20 04:33 Helmet Cells Not Reportable 03/01/20 04:33 Gregory-Martinsdale Bodies Not Reportable 03/01/20 04:33 Midway Rings Not Reportable 03/01/20 04:33 Ewing Cells Not Reportable 03/01/20 04:33 Bite Cells Not Reportable 03/01/20 04:33 Crenated Cell Not Reportable 03/01/20 04:33 Elliptocytes Not Reportable 03/01/20 04:33 Acanthocytes (Spur) Not Reportable 03/01/20 04:33 Rouleaux Not Reportable 03/01/20 04:33 Hemoglobin C Crystals Not Reportable 03/01/20 04:33 Schistocytes Not Reportable 03/01/20 04:33 Malaria parasites Not Reportable 03/01/20 04:33 Colton Bodies Not Reportable 03/01/20 04:33 Hem Pathologist Commnt No 03/01/20 04:33 PT 15.6 Sec. (12.2-14.9) H 02/24/20 09:19 INR 1.21 (0.87-1.13) H 02/24/20 09:19 APTT 25.4 Sec. (24.2-36.6) 02/24/20 09:19 D-Dimer 1311.96 ng/mlDDU (0-234) H 02/24/20 09:19 ABG pH 7.492 pH Units (7.350-7.450) H 03/01/20 03:45 POC ABG pCO2 54.3 mmHg (32.0-48.0) H 02/29/20 05:14 ABG pCO2 43.1 mm Hg 03/01/20 03:45 POC ABG pO2 124.8 mmHg (83-108) H 02/29/20 05:14 ABG pO2 157.1 mm Hg (80.0-90.0) H 03/01/20 03:45 POC ABG HCO3 35.3 02/29/20 05:14 ABG HCO3 32.3 mmol/L (20.0-26.0) H 03/01/20 03:45 ABG O2 Saturation 99.0 % (95.0-99.0) 03/01/20 03:45 ABG O2 Content 18.3 (0.0-44) 03/01/20 03:45 POC ABG Base Excess 9.1 02/29/20 05:14 ABG Base Excess 8.1 mmol/L (-2.0-3.0) H 03/01/20 03:45 ABG Hemoglobin 13.2 gm/dl (14.0-18.0) L 03/01/20 03:45 ABG Oxyhemoglobin 99.2 (94-98) H 02/26/20 17:00 ABG Carboxyhemoglobin 1.2 % (0.0-5.0) 03/01/20 03:45 ABG Methemoglobin 0.7 % (0.0-1.5) 03/01/20 03:45 ABG Sodium 144.3 mmol/L (136.0-145.0) 02/29/20 05:14 ABG Potassium 4.0 mmol/L (3.40-4.50) 02/29/20 05:14 ABG Chloride 103.0 mmol/L (98-107) 02/29/20 05:14 ABG Glucose 185 mg/dL (65-95) H 02/29/20 05:14 Oxyhemoglobin 97.1 % (95.0-99.0) 03/01/20 03:45 Carboxyhemoglobin 0.4 (0.5-1.5) L 02/26/20 17:00 FiO2 40 % 03/01/20 03:45 Sodium 146 mmol/L (137-145) H 03/01/20 04:33 Potassium 4.0 mmol/L (3.6-5.0) 03/01/20 04:33 Chloride 104.9 mmol/L (98-107) 03/01/20 04:33 Carbon Dioxide 32 mmol/L (22-30) H 03/01/20 04:33 Anion Gap 13 mmol/L 03/01/20 04:33 BUN 17 mg/dL (9-20) 03/01/20 04:33 Creatinine < 0.2 mg/dL (0.8-1.3) L 03/01/20 04:33 Estimated GFR > 60 ml/min 03/01/20 04:33 BUN/Creatinine Ratio 85 % 03/01/20 04:33 Glucose 120 mg/dL (75-100) H 03/01/20 04:33 POC Glucose 120 mg/dL (70-105) H 03/01/20 05:29 Lactic Acid 1.00 mmol/L (0.7-2.0) 02/24/20 12:07 Calcium 8.5 mg/dL (8.4-10.2) 03/01/20 04:33 Magnesium 2.30 mg/dL (1.7-2.3) 02/25/20 04:00 Ferritin 1715.0 ng/mL (30.0-300.0) H 02/24/20 10:01 Total Bilirubin 0.80 mg/dL (0.1-1.2) 02/25/20 04:00 AST 17 units/L (5-40) 02/25/20 04:00 ALT 21 units/L (7-56) 02/25/20 04:00 Alkaline Phosphatase 105 units/L (35-129) 02/25/20 04:00 Lactate Dehydrogenase 303 units/L (91-180) H 02/24/20 09:19 Total Creatine Kinase 101 units/L (55-170) 02/24/20 19:35 CK-MB (CK-2) 3.5 ng/mL (0.0-4.0) 02/24/20 19:35 CK-MB (CK-2) Rel Index 3.4 (0-4) 02/24/20 19:35 Troponin T 0.034 ng/mL (0.00-0.029) H D 02/24/20 19:35 C-Reactive Protein 4.70 mg/dL (0.00-1.30) H 02/28/20 11:05 NT-Pro-B Natriuret Pep 48.30 pg/mL (0-900) 02/24/20 09:19 Total Protein 6.5 g/dL (6.3-8.2) 02/25/20 04:00 Albumin 3.5 g/dL (3.9-5) L 02/25/20 04:00 Albumin/Globulin Ratio 1.2 % 02/25/20 04:00 Prealbumin 0.090 g/L (0.200-0.400) L 02/28/20 12:54 Triglycerides 60 mg/dL (2-149) 02/24/20 09:19 Cholesterol 104 mg/dL (50-199) 02/24/20 09:19 LDL Cholesterol Direct 41 mg/dL (50-130) L 02/24/20 09:19 HDL Cholesterol 45 mg/dL (40-59) 02/24/20 09:19 Cholesterol/HDL Ratio 2.31 % 02/24/20 09:19 Procalcitonin 1.68 ng/mL (<0.15) 02/28/20 14:51 Arterial Blood Glucose 185 mg/dL (65-95) H 02/29/20 05:14 Arterial Blood Ionized Calcium 4.6 mg/dL (4.6-5.3) 02/29/20 05:14 Coronavirus (PCR) Negative (Negative) 02/25/20 09:03 Microbiology: Microbiology 02/24/20 09:19 Peripheral/Venous Blood Culture - Final NO GROWTH AFTER 5 DAYS 02/24/20 09:19 Peripheral/Venous Blood Culture - Final NO GROWTH AFTER 5 DAYS - Diagnostic Impressions Diagnostic Impressions: Echocardiogram 02/26/20 10:41 Transthoracic Echocardiogram Indication: Elevated Trop BP: 116/75 HR: 85 Conclusions *Global left ventricular wall motion and contractility are within normal limits. *The estimated ejection fraction is 50-55%. *Abnormal left ventricular diastolic filling is observed, consistent with impaired relaxation. *There is no pericardial effusion. Findings Left Ventricle: The left ventricular chamber size is normal. Global left ventricular wall motion and contractility are within normal limits. Global left ventricular systolic function is normal. The estimated ejection fraction is 50-55%. Abnormal left ventricular diastolic filling is observed, consistent with impaired relaxation. Left Atrium: The left atrial chamber size is normal. Right Ventricle: The right ventricular cavity size is normal. Right Atrium: The right atrial cavity size is normal. Aortic Valve: Mild aortic leaflet calcification is visualized. There is no evidence of aortic regurgitation. Mitral Valve: The mitral valve leaflets are mildly thickened. There is no evidence of mitral regurgitation. Tricuspid Valve: The tricuspid valve leaflets are normal. There is trace tricuspid regurgitation. The right ventricular systolic pressure is calculated at 29 mmHg. Pulmonic Valve: The pulmonic valve is not well visualized. Pericardium: There is no pericardial effusion. Aorta: The aorta appears normal. Venous: The inferior vena cava is dilated. There is less than 50% respiratory change in the inferior vena cava dimension. Measurements Chambers 2D Name Value Normal Range IVSd (2D) 0.97 cm (0.6 - 1.1) LVPWd (2D) 0.93 cm (0.6 - 1.1) LVIDd (2D) 4 cm (3.7 - 5.6) LVIDs (2D) 2.73 cm (2 - 3.8) LV FS (2D) 31.67 % - EF Teichholz (2D) 60.23 % - Ao root diameter (2D) 3.51 cm (2 - 3.7) Volumes/Mass Name Value Normal Range LA ESV SP 4CH (A/L) 8.43 ml - LA ESV SP 2CH (A/L) 18.89 ml - LA ESV BP (A/L) 13.02 ml - LA ESV BP (A/L) index 8.8 ml/m2 - LA ESV SP 4CH (MOD) 7.22 ml - LA ESV SP 2CH (MOD) 18.15 ml - LA ESV BP (MOD) 11.47 ml - LA ESV BP (MOD) index 7.75 ml/m2 - Diastolic/Systolic Function Name Value Normal Range MV E-wave Vmax 0.51 m/sec - MV deceleration time 180.22 msec - MV A-wave Vmax 0.62 m/sec - MV E:A ratio 0.82 ratio - Aortic Valve Name Value Normal Range AV Vmax 1.17 m/sec - AV VTI 19.71 cm - AV peak gradient 5.44 mmHg - AV mean gradient 3.38 mmHg - LVOT diameter 2.26 cm - LVOT Vmax 0.89 m/sec - LVOT VTI 13.72 cm - LVOT peak gradient 3.17 mmHg - LVOT mean gradient 1.67 mmHg - SV LVOT 55.03 ml - SHARAD (continuity Vmax) 3.06 cm2 - SHARAD (continuity VTI) 2.79 cm2 - Tricuspid Valve Name Value Normal Range TR Vmax 2.3 m/sec - TR peak gradient 21 mmHg - RAP 8 mmHg - RVSP 29 mmHg - IVC diameter 2.59 cm (1.2 - 2.3) Pulmonic Valve/Qp:Qs Name Value Normal Range PV acceleration time 68.51 msec - Reardon/IV: Voiding Method Condom Catheter IV Catheter Type [Right INT / Saline Lock Forearm] IV Catheter Type [Right Triple Lumen Cath Internal Jugular] IV Catheter Type [Left Forearm INT / Saline Lock ] IV Catheter Type [Right Triple Lumen Cath Femoral] IV Catheter Type [Right INT / Saline Lock Antecubital] Active Medications - Current Medications Current Medications: Generic Name Dose Route Start Last Admin Trade Name Freq PRN Reason Stop Dose Admin Acetaminophen 650 mg 02/24/20 15:13 02/28/20 09:18 Tylenol PO 650 mg Q4H PRN Administration Pain, Mild (1-3) Albuterol 2.5 mg 02/24/20 15:13 Proventil IH Q4HRT PRN Shortness Of Breath Lipase/Protease/Amylase 1 each 02/26/20 11:[address] 10,500 Unit FEEDTUBE PRN PRN For Clogged Feeding Tube Enoxaparin Sodium 40 mg 02/24/20 22:00 02/29/20 21:31 Enoxaparin SUB-Q 40 mg QDAY@2200 ALISA Administration Protocol Dopamine HCl/Dextrose 800 mg in 250 mls @ 3.338 mls/hr 02/26/20 16:00 02/26/20 17:11 Intropin Drip 800 Mg/D5w 250 Ml IV 0 mcg/kg/min TITR ALISA 0 mls/hr Titration Protocol 2 MCG/KG/MIN Azithromycin 500 mg/ Sodium 250 mls @ 250 mls/hr 02/28/20 10:00 02/29/20 13:20 Chloride IV 03/02/20 12:00 Infused Q24HR ALISA Infusion Protocol Ceftriaxone Sodium 2 gm in 100 mls @ 200 mls/hr 03/01/20 10:00 Rocephin/Ns 2 Gm/100 Ml IV 03/02/20 10:29 Q24HR ALISA Protocol Lansoprazole 30 mg 02/28/20 10:00 02/29/20 12:19 Prevacid Solutab FEEDTUBE 30 mg QDAY ALISA Administration Metoprolol Tartrate 12.5 mg 02/24/20 22:00 02/29/20 21:31 Metoprolol PO 12.5 mg BID ALISA Administration Morphine Sulfate 2 mg 02/29/20 16:42 03/01/20 06:41 Morphine IV 2 mg Q4H PRN Administration Pain, Moderate (4-6) Simple Syrup 15 ml 02/26/20 11:16 Simple Syrup FEEDTUBE PRN PRN Hypoglycemia Simple Syrup 30 ml 02/26/20 11:16 Simple Syrup FEEDTUBE PRN PRN Hypoglycemia Sodium Bicarbonate 325 mg 02/26/20 11:16 Sodium Bicarbonate FEEDTUBE PRN PRN For Clogged Feeding Tube Nutrition/Malnutrition Assess - Dietary Evaluation Nutrition/Malnutrition Findings: Nutrition Notes Start: 02/26/20 10:40 Freq: Status: Active Protocol: Document 02/29/20 11:49 VALDO (Rec: 02/29/20 12:04 VALDO [id number]) Co-Sign 02/29/20 11:49 MK Nutrition Notes Initial or Follow up Reassessment Current Diagnosis Decubitus(Pressure Ulcer), Sepsis,Respiratory Failure Other Pertinent Diagnosis COVID-19 (-), ALS, pneumonia, Hip/buttock PU Current Diet Osmolite 1.5 60ml/hr (goal rate) Labs/Tests Na 148 BG 173 Pertinent Medications Decadron Height 6 ft Weight 63.1 kg Usual Body Weight 65.91 kg [place] Body Weight (kg) 80.90 BMI 18.8 Weight Status Underweight Subjective/Other Information F/u TF and Will. Saw pt and he was able to to nod yes/no. Pt reported wt loss in last year. Clavicle and ribs protruding, mild to moderate. Percent of energy/protein needs met: 100%/81% Burn Absent Trauma Absent GI Symptoms None Skin Integrity/Comment Pressure Ulcer Stage 2 Current % PO Negligible Minimum of two criteria Yes Body Fat Depletion Mild depletion (non-severe) Muscle Mass Mild Depletion (non-severe) Reduced Casing Mixer Strength Measurably Reduced (severe) #3 Nutrition Diagnosis Malnutrition Etiology ALS As Evidenced by Signs and Symptoms pt presents with protruding clavicle bone (muscle loss) and mild protruding rib bones (fat loss) #2 Nutrition Diagnosis Inadequate oral intake As Evidenced by Signs and Symptoms pt relies on TF for nutrition Diagnosis Progress(for reassessment Continues documentation) #1 Nutrition Diagnosis Increased nutrient needs ( specify in comment below) Diagnosis Progress(for reassessment Continues documentation) Is patient on ventilator? Yes Is Patient Ambulatory and/or Out of Bed No REE-([facility]-confined to bed) 1785.708 Kcal/Kg value to use for calculation 35 Approximate Energy Requirements Using 2209 kcal/Kg Calculation Used for Recommendations Kcal/kg Additional Notes Protein 1.2-1.5-134g Fluid: 1ml/kcal Nutrition Intervention Change Diet Order: Change tube feeding formula to Vital AF 1.2 at 75ml/hr. Flush 200ml q4h. Nutrition Support: Vital AF 1.2 at 75ml/hr. Flush 200ml q4h Kcal 2,160 Protein (gm) 135 Fluid (mL) 1,460 Add Supplement/Snack (indicate name/kcal Will BID /protein ) Provides kCal: 190 Provides Protein (gm) 5 Goal #1 Meet at least 80% of energy and protein needs via TF Goal #2 Wound healing Anticipated Discharge Needs: Unable to determine at this time Follow-Up By: 03/02/20 Additional Comments F/u TF start/tolerance, Will
[2020-03-01] MEDS: METOPROLOL TARTRATE 25 MG TAB PO SCH ×2 (09:29→21:30)
[2020-03-01] MEDS: LANSOPRAZOLE 30 MG SOLUTAB FEEDTUBE SCH (09:29)
[2020-03-01] MEDS: AZITHROMYCIN 500 MG in SODIUM CHLORIDE 0.9% 250ML 250 ML IV SCH (09:30)
[2020-03-01] MEDS ORDERED: cefTRIAXone/NS 2 GM/100 ML 2 GM/100 ML BAG IV SCH (10:00)
--- NOTE | 2020-03-01 10:22 | Progress Note ---
Assessment and Plan - Patient Problems (1) Pressure ulcer of left buttock, unstageable Current Visit: Yes Status: Acute (2) Severe protein-calorie malnutrition Current Visit: Yes Status: Acute Plan to address problem: 1) Consider PEG placement if oral intake cannot be resumed in the very near future. I will be happy to place the PEG if needed. 2) I will debride his left buttock pressure ulcer today. Subjective Date of service: 03/01/20 Patient Reports: Positive: no new complaints Objective Vital Signs - 12hr 02/29/20 02/29/20 03/01/20 23:00 23:42 00:00 Temperature 98.9 F Pulse Rate 85 83 89 Pulse Rate [ 93 H From Monitor] Respiratory 18 18 Rate Blood Pressure 106/78 103/74 104/78 O2 Sat by Pulse 99 99 100 Oximetry 03/01/20 03/01/20 03/01/20 01:00 02:00 03:00 Temperature Pulse Rate 83 82 83 Pulse Rate [ From Monitor] Respiratory 18 18 18 Rate Blood Pressure 101/74 109/78 108/79 O2 Sat by Pulse 99 99 99 Oximetry 03/01/20 03/01/20 03/01/20 03:31 03:42 04:00 Temperature 98.9 F Pulse Rate 78 77 Pulse Rate [ 89 From Monitor] Respiratory 19 Rate Blood Pressure 106/75 106/75 O2 Sat by Pulse 100 98 Oximetry 03/01/20 03/01/20 03/01/20 05:00 06:00 07:42 Temperature Pulse Rate 78 78 Pulse Rate [ From Monitor] Respiratory 18 15 20 Rate Blood Pressure 105/75 104/76 104/76 O2 Sat by Pulse 98 98 98 Oximetry 03/01/20 03/01/20 08:00 09:29 Temperature 97.9 F Pulse Rate 91 H Pulse Rate [ From Monitor] Respiratory Rate Blood Pressure 109/75 O2 Sat by Pulse Oximetry - Abdomen [id number] 4, PM_46_[id number] 6, PM_46_[id number] 8 Hernia: none - Integumentary other (Left buttock exam is without change.) - Labs 03/01/20 04:33 03/01/20 04:33 Diabetes panel 03/01/20 Range/Units 04:33 Sodium 146 H (137-145) mmol/L Potassium 4.0 (3.6-5.0) mmol/L Chloride 104.9 (98-107) mmol/L Carbon Dioxide 32 H (22-30) mmol/L BUN 17 (9-20) mg/dL Creatinine < 0.2 L (0.8-1.3) mg/dL Glucose 120 H (75-100) mg/dL Calcium 8.5 (8.4-10.2) mg/dL Calcium panel 03/01/20 Range/Units 04:33 Calcium 8.5 (8.4-10.2) mg/dL Pituitary panel 03/01/20 Range/Units 04:33 Sodium 146 H (137-145) mmol/L Potassium 4.0 (3.6-5.0) mmol/L Chloride 104.9 (98-107) mmol/L Carbon Dioxide 32 H (22-30) mmol/L BUN 17 (9-20) mg/dL Creatinine < 0.2 L (0.8-1.3) mg/dL Glucose 120 H (75-100) mg/dL Calcium 8.5 (8.4-10.2) mg/dL Adrenal panel 03/01/20 Range/Units 04:33 Sodium 146 H (137-145) mmol/L Potassium 4.0 (3.6-5.0) mmol/L Chloride 104.9 (98-107) mmol/L Carbon Dioxide 32 H (22-30) mmol/L BUN 17 (9-20) mg/dL Creatinine < 0.2 L (0.8-1.3) mg/dL Glucose 120 H (75-100) mg/dL Calcium 8.5 (8.4-10.2) mg/dL - Imaging Additional Studies: Prealbumin on 02/28/20 was very low at 0.09.
--- NOTE | 2020-03-01 10:27 | Procedure Note ---
Date of procedure: 03/01/20 Pre-op diagnosis: Unstageable left buttock pressure ulcer Post-op diagnosis: other (Stage 4 left buttock pressure ulcer) Procedure: Debridement of left buttock pressure ulcer Description of procedure: Pt was placed right side down on his bed. The left buttock area was prepped and draped. Necrotic SQ tissue and muscle were surgically, excisionally debrided with forceps and scissors. Bleeding was minimal and was controlled with pressure. The procedure was well tolerated. The wound was dressed by his nurse. Anesthesia: none Surgeon: JULISSA LUNDBERG Estimated blood loss: minimal Pathology: none Specimen disposition: discarded Condition: stable Disposition: no change
--- NOTE | 2020-03-01 12:26 | Progress Note ---
Assessment and Plan Cultures: Blood culture no growth today SARS CoV2 PCR negative Sputum culture with normal respiratory bernice. Assessment: 59 years old female with history of ALS with chronic respiratory failure on home trilogy BiPAP, admitted on 02/24/2020 due to worsening shortness of breath for 24 hours: #Severe sepsis: likely due to bilateral pneumonia +/- left gluteal necrotic pressure ulcer. Remains with low-grade fever, leukocytosis likely due to high- dose steroid received initially. #Severe bilateral pneumonia: Likely community-acquired pneumonia. Procalcitonin elevated-1.13. CTA shows no PE but multifocal pneumonia with predominance left lower lobe. No DVT on US. Elevated D-dimer -1311. SARS-CoV-2 PCR negative. Sputum culture normal respiratory bernice. CRP 26-->4. Prcal 1.1-->1.6 #Left gluteal necrotic pressure ulcer: S/p debridement, not infected per wound care. #Acute on chronic mixed respiratory failure: Intubated, re intubated overnight. #ALS Recommendations: -stop ceftriaxone and azithromycin day 6 -start cefepime 2 g iv q8h to cover sacral wound -start vancomycin w PL consult to cover sacral wound -noe discuss with Dr Flowers if suspicion for osteomyelitis, may consider pelvic CT -repeat CXR -Monitor fever Will follow Diana Maravilla MD Infectious Diseases Channel Marketing Manager [facility] M [phone] O [phone] Subjective Date of service: 03/01/20 Principal diagnosis: Ac on Ch Hypercapnic & hypoxemic Resp Failure; Severe Sepsis; Jamar PNA; ALS Interval history: Remains intubated, no fever x 2 days, no acute event Objective - Exam Narrative Exam: General appearance: Intubated, alert follows commands Eyes: anicteric sclerae, moist conjunctivae; no lid-lag; PERRLA HENT: Normocephalic, Atraumatic; normal external ears, nares open, oropharynx limited, endotracheal tube in place, NG tube Neck: supple, tracheal midline, no JVD Lungs: Bilateral rhonchi CV: RRR no murmur Abdomen: Soft, non-tender; no masses or hepatosplenomegaly Extremities: no edema, no cyanosis Skin: No rash. per wound care Left buttock unstageable pressure ulcer measuring 4.5x7x0.9cm. Wound bed is 7o% necrotic. Small amounts of yellow drainage with a mild odor noted. Psych: no agitated Neuro: Alert on the ventilator - Constitutional Vitals: Vital Signs Temp Pulse Resp BP Pulse Ox 97.9 F 91 H 19 109/75 98 03/01/20 08:00 03/01/20 11:10 03/01/20 11:10 03/01/20 11:10 03/01/20 11:10 Temperature -Last 24 Hours Temperature 97.9 F Temperature 97.9 F Temperature 98.9 F Temperature 98.9 F Temperature 99.3 F Temperature 98.4 F - Labs CBC & Chem 7: 03/01/20 04:33 03/01/20 04:33 Labs: Abnormal lab results 03/01/20 03/01/20 03/01/20 Range/Units 00:00 03:45 04:33 WBC 23.1 H (4.5-11.0) K/mm3 MCH 27 L (28-32) pg RDW 15.3 H (13.2-15.2) % Seg Neuts % (Manual) 92.0 H (40.0-70.0) % Lymphocytes % (Manual) 6.0 L (13.4-35.0) % Seg Neutrophils # Man 21.3 H (1.8-7.7) K/mm3 Eosinophils # (Manual) 0.5 H (0.0-0.4) K/mm3 ABG pH 7.492 H (7.350-7.450) pH Units ABG pO2 157.1 H (80.0-90.0) mm Hg ABG HCO3 32.3 H (20.0-26.0) mmol/L ABG Base Excess 8.1 H (-2.0-3.0) mmol/L ABG Hemoglobin 13.2 L (14.0-18.0) gm/dl Sodium (137-145) mmol/L Carbon Dioxide (22-30) mmol/L Creatinine (0.8-1.3) mg/dL Glucose (75-100) mg/dL POC Glucose 109 H (70-105) mg/dL 03/01/20 03/01/20 Range/Units 04:33 05:29 WBC (4.5-11.0) K/mm3 MCH (28-32) pg RDW (13.2-15.2) % Seg Neuts % (Manual) (40.0-70.0) % Lymphocytes % (Manual) (13.4-35.0) % Seg Neutrophils # Man (1.8-7.7) K/mm3 Eosinophils # (Manual) (0.0-0.4) K/mm3 ABG pH (7.350-7.450) pH Units ABG pO2 (80.0-90.0) mm Hg ABG HCO3 (20.0-26.0) mmol/L ABG Base Excess (-2.0-3.0) mmol/L ABG Hemoglobin (14.0-18.0) gm/dl Sodium 146 H (137-145) mmol/L Carbon Dioxide 32 H (22-30) mmol/L Creatinine < 0.2 L (0.8-1.3) mg/dL Glucose 120 H (75-100) mg/dL POC Glucose 120 H (70-105) mg/dL
--- NOTE | 2020-03-01 12:52 | Progress Note ---
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 Respiratory Failure Severe Sepsis with Shock Bilateral Pneumonia (Possible aspiration) History of ALS on Trilogy Oropharyngeal Dysphagia PUI-COVID Acute toxic metabolic encephalopathy Elevated D-dimer Elevated troponin possibly type 2 ischemia - general surgery wound debridement for pressure ulcer (POA) - tentatively will give a trial of extubation if passes SBT but also intimated him that if he fails, he will need a tracheostomy - morphine sulfate 2mg IV q4h ordered - RN / outsole caser to identify legal NOK - continue free water 200 mls q4h re: hypernatremia - continue to rest on full support qhs - continue care as below otherwise; - continue Daily SAT and SBT assessment as tolerated - wean supplemental oxygen for target O2 sat's > 92% acutely - bronchodilators with pulmonary hygiene per RT - VAP bundle addressed - continue lung protective strategies - continue bronchodilators with pulmonary hygiene per RT - wean per pulmonary driven protocols otherwise - sedation prn for target RASS 0 to -1 - empiric antiinfectives per ID rec's (Rocephin and Zithromax) - COVID-19 isolation (Airborne & Contact) - empiric Dexamethasonme - follow COVID-19 test results - trend inflammatory markers to aid clinical decision making - enteral nutrition at goal rate as tolerated - Aspiration precautions - accuchecks with glycemic control per SSI (While critically ill target blood glucose of 140-180 mg/dL; avoid hypoglycemia) - avoid nephrotoxins, renally dose all medications - avoid benzodiazepine's, reduce the possibility of delirium - prn analgesia per CPOT score - Maintenance of sleep-wake cycle, avoid delirium - aspiration precautions - G.I. & VTE prophylaxis - PT/OT/ROM exercises - mobility protocols for pressure ulcer prophylaxis - Monitor hemodynamics closely - continue other care per attending / other consultants - discharge planning ongoing concurrently .... Re-evaluate in am & prn CONDITION: CRITICAL PROGNOSIS: GUARDED CODE STATUS: FULL CODE The high probability of a clinically significant, sudden or life-threatening deterioration of the [respiratory, cardiovascular & neurologic] system(s) required my full and direct attention, intervention and personal management. The aggregate critical care time was [33] minutes without overlap. Time includes spent on; [x] Data Review and interpretation [x] Patient assessment and monitoring of vital signs [x] Documentation [x] Medication orders and management Subjective Date of service: 03/01/20 Principal diagnosis: Ac on Ch Hypercapnic & hypoxemic Resp Failure; Severe Sepsis; Jamar PNA; ALS Interval history: Patient is seen today for: Acute on Chronic Hypercapnic & hypoxemic Respiratory Failure; Severe Sepsis with Shock; Bilateral Pneumonia (Possible aspiration); History of ALS on Trilogy; PUI-COVID; Acute toxic metabolic encephalopathy Seen and examined at bedside; 24hour events reviewed; nursing and respiratory care staff consulted; no adverse overnight events reported to me; resting in bed; remains on MVS; tolerating SBT and p-supp dropped to 12 cm H2O; family visited and after getting his consent i had a discussion with them and updated them on the care plan Objective Vital Signs - 12hr 03/01/20 03/01/20 03/01/20 01:00 02:00 03:00 Temperature Pulse Rate 83 82 83 Pulse Rate [ From Monitor] Respiratory 18 18 18 Rate Blood Pressure 101/74 109/78 108/79 O2 Sat by Pulse 99 99 99 Oximetry 03/01/20 03/01/20 03/01/20 03:31 03:42 04:00 Temperature 98.9 F Pulse Rate 78 77 Pulse Rate [ 89 From Monitor] Respiratory 19 Rate Blood Pressure 106/75 106/75 O2 Sat by Pulse 100 98 Oximetry 03/01/20 03/01/20 03/01/20 05:00 06:00 07:00 Temperature Pulse Rate 78 80 Pulse Rate [ From Monitor] Respiratory 18 15 18 Rate Blood Pressure 105/75 104/76 102/73 O2 Sat by Pulse 98 98 97 Oximetry 03/01/20 03/01/20 03/01/20 07:42 08:00 09:00 Temperature 97.9 F Pulse Rate 78 84 93 H Pulse Rate [ 84 From Monitor] Respiratory 20 9 L 12 Rate Blood Pressure 104/76 99/67 109/75 O2 Sat by Pulse 98 98 Oximetry 03/01/20 03/01/20 03/01/20 09:29 10:00 11:00 Temperature Pulse Rate 91 H 80 76 Pulse Rate [ From Monitor] Respiratory 13 11 L Rate Blood Pressure 109/75 117/82 114/81 O2 Sat by Pulse 97 Oximetry 03/01/20 11:10 Temperature Pulse Rate 91 H Pulse Rate [ From Monitor] Respiratory 19 Rate Blood Pressure 109/75 O2 Sat by Pulse 98 Oximetry Constitutional: no acute distress, other (thin middle aged male with mildly increased respiratory effort at rest on MVS) Eyes: non-icteric ENT: oropharynx moist, other (ETT 23 cm LYNETTE) Neck: supple, no lymphadenopathy, no JVD Effort: mildly labored Ascultation: Bilateral: wheezes, rhonchi (scant in bases) Percussion: Bilateral: not dull Cardiovascular: regular rate and rhythm, other (S1,S2, no murmurs) Gastrointestinal: normoactive bowel sounds, soft, non-tender, non-distended Integumentary: normal, decubitus ulcer (sacral / gluteal) Extremities: no cyanosis, no edema, pulses normal, other (atrophic looking limbs) Neurologic: pupils equal and round, other (motor strength in extremities 1-2/5) Psychiatric: mood appropriate, affect normal CBC and BMP: 03/02/20 09:47 03/02/20 09:47 ABG, PT/INR, D-dimer: ABG ABG pH 7.492 pH Units (7.350-7.450) H 03/01/20 03:45 POC ABG pCO2 54.3 mmHg (32.0-48.0) H 02/29/20 05:14 ABG pCO2 43.1 mm Hg 03/01/20 03:45 POC ABG pO2 124.8 mmHg (83-108) H 02/29/20 05:14 ABG pO2 157.1 mm Hg (80.0-90.0) H 03/01/20 03:45 POC ABG HCO3 35.3 02/29/20 05:14 ABG O2 Saturation 99.0 % (95.0-99.0) 03/01/20 03:45 PT/INR, D-dimer PT 15.6 Sec. (12.2-14.9) H 02/24/20 09:19 INR 1.21 (0.87-1.13) H 02/24/20 09:19 D-Dimer 1311.96 ng/mlDDU (0-234) H 02/24/20 09:19 Abnormal lab findings: Abnormal Labs 02/24/20 02/24/20 02/24/20 09:19 09:19 09:19 WBC 20.2 H RBC 5.05 H MCV MCH RDW 15.3 H Plt Count Lymph % (Auto) Williams # (Auto) Seg Neutrophils % Seg Neuts % (Manual) 86.0 H Lymphocytes % (Manual) 1.0 L Seg Neutrophils # Seg Neutrophils # Man 17.4 H Lymphocytes # (Manual) 0.2 L Monocytes # (Manual) Eosinophils # (Manual) PT 15.6 H INR 1.21 H D-Dimer 1311.96 H ABG pH POC ABG pCO2 POC ABG pO2 ABG pO2 ABG HCO3 ABG O2 Saturation ABG Base Excess ABG Hemoglobin ABG Oxyhemoglobin ABG Potassium ABG Glucose Oxyhemoglobin Carboxyhemoglobin Sodium 135 L Potassium 3.2 L Chloride 92.2 L Carbon Dioxide BUN 6 L Creatinine < 0.2 L Glucose 124 H POC Glucose Ferritin Total Bilirubin 2.30 H Alkaline Phosphatase 132 H Lactate Dehydrogenase Troponin T 0.080 H C-Reactive Protein Albumin 3.6 L Prealbumin LDL Cholesterol Direct 41 L Arterial Blood Glucose Arterial Blood Ionized Calcium 02/24/20 02/24/20 02/24/20 09:19 09:58 10:01 WBC RBC MCV MCH RDW Plt Count Lymph % (Auto) Williams # (Auto) Seg Neutrophils % Seg Neuts % (Manual) Lymphocytes % (Manual) Seg Neutrophils # Seg Neutrophils # Man Lymphocytes # (Manual) Monocytes # (Manual) Eosinophils # (Manual) PT INR D-Dimer ABG pH 7.176 L* POC ABG pCO2 POC ABG pO2 ABG pO2 91.2 H ABG HCO3 ABG O2 Saturation ABG Base Excess -4.6 L ABG Hemoglobin ABG Oxyhemoglobin ABG Potassium ABG Glucose Oxyhemoglobin 92.6 L Carboxyhemoglobin Sodium Potassium Chloride Carbon Dioxide BUN Creatinine Glucose POC Glucose Ferritin 1715.0 H Total Bilirubin Alkaline Phosphatase Lactate Dehydrogenase 303 H Troponin T C-Reactive Protein 26.10 H Albumin Prealbumin LDL Cholesterol Direct Arterial Blood Glucose Arterial Blood Ionized Calcium 02/24/20 02/24/20 02/24/20 11:52 13:45 19:35 WBC RBC MCV MCH RDW Plt Count Lymph % (Auto) Williams # (Auto) Seg Neutrophils % Seg Neuts % (Manual) Lymphocytes % (Manual) Seg Neutrophils # Seg Neutrophils # Man Lymphocytes # (Manual) Monocytes # (Manual) Eosinophils # (Manual) PT INR D-Dimer ABG pH 7.051 L* 7.300 L POC ABG pCO2 POC ABG pO2 ABG pO2 94.7 H 75.1 L ABG HCO3 18.0 L ABG O2 Saturation 93.5 L ABG Base Excess -6.8 L -7.8 L ABG Hemoglobin 13.2 L 11.9 L ABG Oxyhemoglobin ABG Potassium ABG Glucose Oxyhemoglobin 91.0 L 92.7 L Carboxyhemoglobin Sodium Potassium Chloride Carbon Dioxide BUN Creatinine Glucose POC Glucose Ferritin Total Bilirubin Alkaline Phosphatase Lactate Dehydrogenase Troponin T 0.034 H D C-Reactive Protein Albumin Prealbumin LDL Cholesterol Direct Arterial Blood Glucose Arterial Blood Ionized Calcium 02/25/20 02/25/20 02/25/20 04:00 04:00 12:26 WBC 22.9 H RBC MCV 83 L MCH 27 L RDW Plt Count 468 H Lymph % (Auto) Williams # (Auto) Seg Neutrophils % Seg Neuts % (Manual) 89.0 H Lymphocytes % (Manual) 7.0 L Seg Neutrophils # Seg Neutrophils # Man 20.4 H Lymphocytes # (Manual) Monocytes # (Manual) Eosinophils # (Manual) PT INR D-Dimer ABG pH POC ABG pCO2 POC ABG pO2 ABG pO2 ABG HCO3 ABG O2 Saturation ABG Base Excess ABG Hemoglobin ABG Oxyhemoglobin ABG Potassium 2.6 L ABG Glucose 142 H Oxyhemoglobin Carboxyhemoglobin Sodium Potassium 3.2 L Chloride Carbon Dioxide 18 L BUN Creatinine 0.2 L Glucose 114 H POC Glucose Ferritin Total Bilirubin Alkaline Phosphatase Lactate Dehydrogenase Troponin T C-Reactive Protein Albumin 3.5 L Prealbumin LDL Cholesterol Direct Arterial Blood Glucose 142 H Arterial Blood Ionized Calcium 02/26/20 02/26/20 02/26/20 15:58 17:00 23:43 WBC RBC MCV MCH RDW Plt Count Lymph % (Auto) Williams # (Auto) Seg Neutrophils % Seg Neuts % (Manual) Lymphocytes % (Manual) Seg Neutrophils # Seg Neutrophils # Man Lymphocytes # (Manual) Monocytes # (Manual) Eosinophils # (Manual) PT INR D-Dimer ABG pH 7.502 H POC ABG pCO2 POC ABG pO2 213.6 H ABG pO2 ABG HCO3 ABG O2 Saturation ABG Base Excess ABG Hemoglobin ABG Oxyhemoglobin 99.2 H ABG Potassium 2.9 L ABG Glucose 160 H Oxyhemoglobin Carboxyhemoglobin 0.4 L Sodium Potassium Chloride Carbon Dioxide BUN Creatinine Glucose POC Glucose 189 H 120 H Ferritin Total Bilirubin Alkaline Phosphatase Lactate Dehydrogenase Troponin T C-Reactive Protein Albumin Prealbumin LDL Cholesterol Direct Arterial Blood Glucose 160 H Arterial Blood Ionized Calcium 4.5 L 02/27/20 02/27/20 02/27/20 05:00 07:04 17:45 WBC RBC MCV MCH RDW Plt Count Lymph % (Auto) Williams # (Auto) Seg Neutrophils % Seg Neuts % (Manual) Lymphocytes % (Manual) Seg Neutrophils # Seg Neutrophils # Man Lymphocytes # (Manual) Monocytes # (Manual) Eosinophils # (Manual) PT INR D-Dimer ABG pH 7.524 H POC ABG pCO2 POC ABG pO2 ABG pO2 ABG HCO3 ABG O2 Saturation ABG Base Excess ABG Hemoglobin ABG Oxyhemoglobin ABG Potassium 3.0 L ABG Glucose 143 H Oxyhemoglobin Carboxyhemoglobin Sodium Potassium Chloride Carbon Dioxide BUN Creatinine Glucose POC Glucose 154 H 175 H Ferritin Total Bilirubin Alkaline Phosphatase Lactate Dehydrogenase Troponin T C-Reactive Protein Albumin Prealbumin LDL Cholesterol Direct Arterial Blood Glucose 143 H Arterial Blood Ionized Calcium 02/27/20 02/28/20 02/28/20 Unknown 00:21 04:15 WBC 18.7 H RBC MCV MCH RDW Plt Count Lymph % (Auto) 8.7 L Williams # (Auto) 1.2 H Seg Neutrophils % 84.6 H Seg Neuts % (Manual) Lymphocytes % (Manual) Seg Neutrophils # 15.9 H Seg Neutrophils # Man Lymphocytes # (Manual) Monocytes # (Manual) Eosinophils # (Manual) PT INR D-Dimer ABG pH POC ABG pCO2 POC ABG pO2 ABG pO2 ABG HCO3 ABG O2 Saturation ABG Base Excess ABG Hemoglobin ABG Oxyhemoglobin ABG Potassium ABG Glucose Oxyhemoglobin Carboxyhemoglobin Sodium Potassium 2.9 L* Chloride Carbon Dioxide 33 H D BUN Creatinine < 0.2 L Glucose 157 H POC Glucose 134 H Ferritin Total Bilirubin Alkaline Phosphatase Lactate Dehydrogenase Troponin T C-Reactive Protein Albumin Prealbumin LDL Cholesterol Direct Arterial Blood Glucose Arterial Blood Ionized Calcium 02/28/20 02/28/20 02/28/20 04:15 05:16 05:39 WBC RBC MCV MCH RDW Plt Count Lymph % (Auto) Williams # (Auto) Seg Neutrophils % Seg Neuts % (Manual) Lymphocytes % (Manual) Seg Neutrophils # Seg Neutrophils # Man Lymphocytes # (Manual) Monocytes # (Manual) Eosinophils # (Manual) PT INR D-Dimer ABG pH POC ABG pCO2 POC ABG pO2 ABG pO2 142.9 H ABG HCO3 34.1 H ABG O2 Saturation ABG Base Excess 8.3 H ABG Hemoglobin ABG Oxyhemoglobin ABG Potassium ABG Glucose Oxyhemoglobin Carboxyhemoglobin Sodium 151 H Potassium Chloride Carbon Dioxide 32 H BUN Creatinine 0.2 L Glucose 167 H POC Glucose 138 H Ferritin Total Bilirubin Alkaline Phosphatase Lactate Dehydrogenase Troponin T C-Reactive Protein Albumin Prealbumin LDL Cholesterol Direct Arterial Blood Glucose Arterial Blood Ionized Calcium 02/28/20 02/28/20 02/28/20 11:05 11:33 12:54 WBC RBC MCV MCH RDW Plt Count Lymph % (Auto) Williams # (Auto) Seg Neutrophils % Seg Neuts % (Manual) Lymphocytes % (Manual) Seg Neutrophils # Seg Neutrophils # Man Lymphocytes # (Manual) Monocytes # (Manual) Eosinophils # (Manual) PT INR D-Dimer ABG pH POC ABG pCO2 POC ABG pO2 ABG pO2 ABG HCO3 ABG O2 Saturation ABG Base Excess ABG Hemoglobin ABG Oxyhemoglobin ABG Potassium ABG Glucose Oxyhemoglobin Carboxyhemoglobin Sodium Potassium Chloride Carbon Dioxide BUN Creatinine Glucose POC Glucose 160 H Ferritin Total Bilirubin Alkaline Phosphatase Lactate Dehydrogenase Troponin T C-Reactive Protein 4.70 H Albumin Prealbumin 0.090 L LDL Cholesterol Direct Arterial Blood Glucose Arterial Blood Ionized Calcium 02/28/20 02/29/20 02/29/20 17:34 00:44 04:05 WBC 19.6 H RBC MCV MCH 27 L RDW 15.4 H Plt Count Lymph % (Auto) Williams # (Auto) Seg Neutrophils % Seg Neuts % (Manual) 86.0 H Lymphocytes % (Manual) 7.0 L Seg Neutrophils # Seg Neutrophils # Man 16.9 H Lymphocytes # (Manual) Monocytes # (Manual) 1.2 H Eosinophils # (Manual) PT INR D-Dimer ABG pH POC ABG pCO2 POC ABG pO2 ABG pO2 ABG HCO3 ABG O2 Saturation ABG Base Excess ABG Hemoglobin ABG Oxyhemoglobin ABG Potassium ABG Glucose Oxyhemoglobin Carboxyhemoglobin Sodium Potassium Chloride Carbon Dioxide BUN Creatinine Glucose POC Glucose 136 H 156 H Ferritin Total Bilirubin Alkaline Phosphatase Lactate Dehydrogenase Troponin T C-Reactive Protein Albumin Prealbumin LDL Cholesterol Direct Arterial Blood Glucose Arterial Blood Ionized Calcium 02/29/20 02/29/20 02/29/20 04:05 05:14 05:33 WBC RBC MCV MCH RDW Plt Count Lymph % (Auto) Williams # (Auto) Seg Neutrophils % Seg Neuts % (Manual) Lymphocytes % (Manual) Seg Neutrophils # Seg Neutrophils # Man Lymphocytes # (Manual) Monocytes # (Manual) Eosinophils # (Manual) PT INR D-Dimer ABG pH POC ABG pCO2 54.3 H POC ABG pO2 124.8 H ABG pO2 ABG HCO3 ABG O2 Saturation ABG Base Excess ABG Hemoglobin ABG Oxyhemoglobin ABG Potassium ABG Glucose 185 H Oxyhemoglobin Carboxyhemoglobin Sodium 148 H Potassium Chloride Carbon Dioxide 33 H BUN Creatinine < 0.2 L Glucose 173 H POC Glucose 152 H Ferritin Total Bilirubin Alkaline Phosphatase Lactate Dehydrogenase Troponin T C-Reactive Protein Albumin Prealbumin LDL Cholesterol Direct Arterial Blood Glucose 185 H Arterial Blood Ionized Calcium 03/01/20 03/01/20 03/01/20 00:00 03:45 04:33 WBC 23.1 H RBC MCV MCH 27 L RDW 15.3 H Plt Count Lymph % (Auto) Williams # (Auto) Seg Neutrophils % Seg Neuts % (Manual) 92.0 H Lymphocytes % (Manual) 6.0 L Seg Neutrophils # Seg Neutrophils # Man 21.3 H Lymphocytes # (Manual) Monocytes # (Manual) Eosinophils # (Manual) 0.5 H PT INR D-Dimer ABG pH 7.492 H POC ABG pCO2 POC ABG pO2 ABG pO2 157.1 H ABG HCO3 32.3 H ABG O2 Saturation ABG Base Excess 8.1 H ABG Hemoglobin 13.2 L ABG Oxyhemoglobin ABG Potassium ABG Glucose Oxyhemoglobin Carboxyhemoglobin Sodium Potassium Chloride Carbon Dioxide BUN Creatinine Glucose POC Glucose 109 H Ferritin Total Bilirubin Alkaline Phosphatase Lactate Dehydrogenase Troponin T C-Reactive Protein Albumin Prealbumin LDL Cholesterol Direct Arterial Blood Glucose Arterial Blood Ionized Calcium 03/01/20 03/01/20 03/01/20 04:33 05:29 12:32 WBC RBC MCV MCH RDW Plt Count Lymph % (Auto) Williams # (Auto) Seg Neutrophils % Seg Neuts % (Manual) Lymphocytes % (Manual) Seg Neutrophils # Seg Neutrophils # Man Lymphocytes # (Manual) Monocytes # (Manual) Eosinophils # (Manual) PT INR D-Dimer ABG pH POC ABG pCO2 POC ABG pO2 ABG pO2 ABG HCO3 ABG O2 Saturation ABG Base Excess ABG Hemoglobin ABG Oxyhemoglobin ABG Potassium ABG Glucose Oxyhemoglobin Carboxyhemoglobin Sodium 146 H Potassium Chloride Carbon Dioxide 32 H BUN Creatinine < 0.2 L Glucose 120 H POC Glucose 120 H 128 H Ferritin Total Bilirubin Alkaline Phosphatase Lactate Dehydrogenase Troponin T C-Reactive Protein Albumin Prealbumin LDL Cholesterol Direct Arterial Blood Glucose Arterial Blood Ionized Calcium Allied health notes reviewed: nursing
[2020-03-01] MEDS ORDERED: VANCOMYCIN PHARMACY TO DOSE IV SCH (13:00)
[2020-03-01] MEDS: CEFEPIME/NS 2 GM/100 ML 2 GM/100 ML BAG IV SCH ×2 (13:54→21:30)
--- NOTE | 2020-03-01 14:49 | XRay Report ---
CHEST 1 VIEW INDICATION: bilateral pneumonia. COMPARISON: 02/27/2020 FINDINGS: Support devices: The endotracheal tube has been retracted and now terminates 2.9 cm superior to the c braulio. Feeding tube is followed to the distal stomach but the distal tip is not included. Heart: Within normal limits. Lungs/Pleura: Near complete left lung atelectasis has resolved. The lungs are well-aerated. No pleura l effusion or pneumothorax. Additional findings: None. IMPRESSION: No acute findings. Signer Name: Mynor Lakhani Jr, MD Signed: 03/01/2020 2:44 PM Workstation Name: [id number]
[2020-03-01] MEDS ORDERED: VANCOMYCIN 1,250 MG in SODIUM CHLORIDE 0.9% 250ML 250 ML IV ONE (15:00)
[2020-03-01] MEDS: ENOXAPARIN 40 MG/0.4 ML INJ SUB-Q SCH (21:30)
[2020-03-02] MEDS: VANCOMYCIN/NS 1 GM/250 ML 1 GM/250 ML BAG IV SCH ×2 (04:51→16:02)
[2020-03-02] MEDS: CEFEPIME/NS 2 GM/100 ML 2 GM/100 ML BAG IV SCH ×3 (06:43→22:05)
[2020-03-02] MEDS: MORPHINE 2 MG/1 ML INJ IV PRN ×3 (08:42→19:33)
--- NOTE | 2020-03-02 08:48 | Progress Note ---
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 Patient was on a trilogy machine for breathing 18/11. EMS arrived, patient had O2 sats in the 80s. EMS attempted to place patient on their CPAP machine, hillmeredith lopez patient did not tolerate. Patient was admitted to the ICU with diagnosis of acute hypoxic respiratory failure and placed on BiPAP. Patient initially tolerated but later deteriorated with respiratory status. Therefore, patient was intubated on 02/26/2020 at 1500. Patient now on mechanical ventilation in the ICU. --Acute hypoxic hypercapnic respiratory failure; Intubated on mechanical ventilation. Etiology secondary to sepsis, ALS, multifocal pneumonia (Covid negative). Patient is on CPAP patient --ALS --Elevated D-dimers; CTA chest, lower extremity venous Doppler both are negative Lovenox DVT prophylaxis --Bilateral pneumonia; probably community-acquired Versus atypical, empiric antibiotics Rocephin and Zithromax Cultures, check pro calcitonin --Sepsis secondary to pneumonia Leukocytosis, tachycardia, pneumonia on chest x-ray --Elevated troponin; Serial cardiac enzymes, serial EKGs Echocardiogram, cardiology consult if needed --Hypokalemia; replaced with KCl Monitor levels --Hyponatremia; IV fluids Closely monitor electrolytes --DVT prophylaxis; Lovenox Admit to ICU for close observation 02/25/2020. CTA of the chest reveals no PE but does illustrate the bilateral pneumonia. Doppler ultrasound also negative for DVT. Blood cultures are pending. Await COVID-19 testing. Patient currently requiring BiPAP IPAP 24/EPAP 6 with FiO2 of 25%. Continue O2 and BiPAP as clinically indicated. ID and pulmonary consulted. 02/26/2020. Blood cultures are negative x48 hours and Covid testing negative as well. Continue antibiotics per ID recommendations for community-acquired bilateral pneumonia. Cardiology consultation for elevated troponin. Check echocardiogram. 02/27/2020. Events of yesterday noted with asystole following V. fib arrest. Patient currently on AC mode rate 20, tidal volume 400, FiO2 50% and a PEEP of 6. Follow-up echocardiogram for elevated troponin. Cardiology suspects NSTEMI Type 2 in the setting of acute resp failure. Chest CTA and BLE Dopplers neg. we will discontinue Decadron given the Covid PCR is negative. 02/28/2020. I spoke with the sister Felisa Eli who is the power of litigation attorney associate regarding advanced directives and she instructed me that she would like to continue with aggressive care at this time. I informed her of the guarded prognosis and high mortality/morbidity and she voiced understanding. Patient currently with AC mode ventilation rate 18, tidal volume 400, FiO2 40% and a PEEP of 6. Continue antibiotics for pneumonia. ID previously consulted. Also consult neurology with regards to ALS. 02/29/2020; patient is intubated and on CPAP patient is alert and oriented. Patient has ALS. Dr. Álvarez spoke with his sister and she wants aggressive care. Continue antibiotics for pneumonia. Neurology consulted for ALS. Prognosis poor 03/01/2020; patient is intubated and on CPAP, patient is alert and oriented. I spoke with his 2 sisters about the management plan. 03/02/2020; patient is intubated and on CPAP. Patient was alert and oriented. I spoke with Dr. mohr and he thinks patient may need mechanical ventilation, likely his disease progressed. Dr. Flowers did debridement this morning. The high probability of a clinically significant, sudden or life threatening deterioration of the [cardiac and respiratory] system(s) required my full and direct attention, intervention and personal management. The aggregate critical care time was [34] minutes. This time is in addition to time spent performing reported procedures but includes the following: [x] Data Review and interpretation [x] Patient assessment and monitoring of vital signs [x] Documentation [x] Medication orders and management History Interval history: Patient was seen and evaluated this morning Patient is intubated, CPAP Patient was alert and oriented, he said he understand plan nodding his head Hospitalist Physical - Physical exam Narrative exam: Not in cardiopulmonary distress. The patient appeared well nourished and normally developed. Vital signs as documented. Head exam is unremarkable. No scleral icterus . Neck is without jugular venous distension, thyromegaly, or carotid bruits. Lungs are clear to auscultation. Cardiac exam reveals regular rate and Rhythm. Abdominal exam reveals normal bowel sounds, nontender, no organomegaly. Extremities are nonedematous and both femoral and pedal pulses are normal. 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 - Constitutional Vitals: Temp Pulse Resp BP Pulse Ox 98.8 F 89 21 124/86 96 03/02/20 04:00 03/02/20 06:05 03/02/20 06:00 03/02/20 06:05 03/02/20 06:05 General appearance: Present: mild distress, other (Intubated on mechanical ventilation) HEART Score - HEART Score Troponin: Troponin T 0.034 ng/mL (0.00-0.029) H D 02/24/20 19:35 Results - Labs CBC & Chem 7: 03/02/20 09:47 03/02/20 09:47 Labs: Laboratory Last Values WBC 23.1 K/mm3 (4.5-11.0) H 03/01/20 04:33 RBC 4.58 M/mm3 (3.65-5.03) 03/01/20 04:33 Hgb 12.4 gm/dl (11.8-15.2) 03/01/20 04:33 Hct 38.7 % (35.5-45.6) 03/01/20 04:33 MCV 84 fl (84-94) 03/01/20 04:33 MCH 27 pg (28-32) L 03/01/20 04:33 MCHC 32 % (32-34) 03/01/20 04:33 RDW 15.3 % (13.2-15.2) H 03/01/20 04:33 Plt Count 405 K/mm3 (140-440) 03/01/20 04:33 Lymph % (Auto) 8.7 % (13.4-35.0) L 02/28/20 04:15 [place] % (Auto) 6.6 % (0.0-7.3) 02/28/20 04:15 Eos % (Auto) 0.0 % (0.0-4.3) 02/28/20 04:15 Baso % (Auto) 0.1 % (0.0-1.8) 02/28/20 04:15 Lymph # (Auto) 1.6 K/mm3 (1.2-5.4) 02/28/20 04:15 Forest # (Auto) 1.2 K/mm3 (0.0-0.8) H 02/28/20 04:15 Eos # (Auto) 0.0 K/mm3 (0.0-0.4) 02/28/20 04:15 Baso # (Auto) 0.0 K/mm3 (0.0-0.1) 02/28/20 04:15 Add Manual Diff Complete 03/01/20 04:33 Total Counted 100 03/01/20 04:33 Seg Neutrophils % 84.6 % (40.0-70.0) H 02/28/20 04:15 Seg Neuts % (Manual) 92.0 % (40.0-70.0) H 03/01/20 04:33 Band Neutrophils % 0 % 03/01/20 04:33 Lymphocytes % (Manual) 6.0 % (13.4-35.0) L 03/01/20 04:33 Reactive Lymphs % (Man) 0 % 03/01/20 04:33 Monocytes % (Manual) 0 % (0.0-7.3) 03/01/20 04:33 Eosinophils % (Manual) 2.0 % (0.0-4.3) 03/01/20 04:33 Basophils % (Manual) 0 % (0.0-1.8) 03/01/20 04:33 Metamyelocytes % 0 % 03/01/20 04:33 Myelocytes % 0 % 03/01/20 04:33 Promyelocytes % 0 % 03/01/20 04:33 Blast Cells % 0 % 03/01/20 04:33 Nucleated RBC % Not Reportable 03/01/20 04:33 Seg Neutrophils # 15.9 K/mm3 (1.8-7.7) H 02/28/20 04:15 Seg Neutrophils # Man 21.3 K/mm3 (1.8-7.7) H 03/01/20 04:33 Band Neutrophils # 0.0 K/mm3 03/01/20 04:33 Lymphocytes # (Manual) 1.4 K/mm3 (1.2-5.4) 03/01/20 04:33 Abs React Lymphs (Man) 0.0 K/mm3 03/01/20 04:33 Monocytes # (Manual) 0.0 K/mm3 (0.0-0.8) 03/01/20 04:33 Eosinophils # (Manual) 0.5 K/mm3 (0.0-0.4) H 03/01/20 04:33 Basophils # (Manual) 0.0 K/mm3 (0.0-0.1) 03/01/20 04:33 Metamyelocytes # 0.0 K/mm3 03/01/20 04:33 Myelocytes # 0.0 K/mm3 03/01/20 04:33 Promyelocytes # 0.0 K/mm3 03/01/20 04:33 Blast Cells # 0.0 K/mm3 03/01/20 04:33 WBC Morphology Not Reportable 03/01/20 04:33 Hypersegmented Neuts Not Reportable 03/01/20 04:33 Hyposegmented Neuts Not Reportable 03/01/20 04:33 Hypogranular Neuts Not Reportable 03/01/20 04:33 Smudge Cells Not Reportable 03/01/20 04:33 Toxic Granulation Not Reportable 03/01/20 04:33 Toxic Vacuolation Not Reportable 03/01/20 04:33 Dohle Bodies Not Reportable 03/01/20 04:33 Pelger-Huet Anomaly Not Reportable 03/01/20 04:33 Robert Rods Not Reportable 03/01/20 04:33 Platelet Estimate Consistent w auto 03/01/20 04:33 Clumped Platelets Not Reportable 03/01/20 04:33 Plt Clumps, EDTA Not Reportable 03/01/20 04:33 Large Platelets Not Reportable 03/01/20 04:33 Giant Platelets Not Reportable 03/01/20 04:33 Platelet Satelliting Not Reportable 03/01/20 04:33 Plt Morphology Comment Not Reportable 03/01/20 04:33 RBC Morphology Not Reportable 03/01/20 04:33 Dimorphic RBCs Not Reportable 03/01/20 04:33 Polychromasia Not Reportable 03/01/20 04:33 Hypochromasia Not Reportable 03/01/20 04:33 Poikilocytosis Not Reportable 03/01/20 04:33 Anisocytosis Few 03/01/20 04:33 Microcytosis Few 03/01/20 04:33 Macrocytosis Not Reportable 03/01/20 04:33 Spherocytes Not Reportable 03/01/20 04:33 Pappenheimer Bodies Not Reportable 03/01/20 04:33 Sickle Cells Not Reportable 03/01/20 04:33 Target Cells Not Reportable 03/01/20 04:33 Tear Drop Cells Not Reportable 03/01/20 04:33 Ovalocytes Not Reportable 03/01/20 04:33 Helmet Cells Not Reportable 03/01/20 04:33 Gregory-Concrete Bodies Not Reportable 03/01/20 04:33 [place] Rings Not Reportable 03/01/20 04:33 Riaz Cells Not Reportable 03/01/20 04:33 Bite Cells Not Reportable 03/01/20 04:33 Crenated Cell Not Reportable 03/01/20 04:33 Elliptocytes Not Reportable 03/01/20 04:33 Acanthocytes (Spur) Not Reportable 03/01/20 04:33 Rouleaux Not Reportable 03/01/20 04:33 Hemoglobin C Crystals Not Reportable 03/01/20 04:33 Schistocytes Not Reportable 03/01/20 04:33 Malaria parasites Not Reportable 03/01/20 04:33 Colton Bodies Not Reportable 03/01/20 04:33 Hem Pathologist Commnt No 03/01/20 04:33 PT 15.6 Sec. (12.2-14.9) H 02/24/20 09:19 INR 1.21 (0.87-1.13) H 02/24/20 09:19 APTT 25.4 Sec. (24.2-36.6) 02/24/20 09:19 D-Dimer 1311.96 ng/mlDDU (0-234) H 02/24/20 09:19 ABG pH 7.492 pH Units (7.350-7.450) H 03/01/20 03:45 POC ABG pCO2 54.3 mmHg (32.0-48.0) H 02/29/20 05:14 ABG pCO2 43.1 mm Hg 03/01/20 03:45 POC ABG pO2 124.8 mmHg (83-108) H 02/29/20 05:14 ABG pO2 157.1 mm Hg (80.0-90.0) H 03/01/20 03:45 POC ABG HCO3 35.3 02/29/20 05:14 ABG HCO3 32.3 mmol/L (20.0-26.0) H 03/01/20 03:45 ABG O2 Saturation 99.0 % (95.0-99.0) 03/01/20 03:45 ABG O2 Content 18.3 (0.0-44) 03/01/20 03:45 POC ABG Base Excess 9.1 02/29/20 05:14 ABG Base Excess 8.1 mmol/L (-2.0-3.0) H 03/01/20 03:45 ABG Hemoglobin 13.2 gm/dl (14.0-18.0) L 03/01/20 03:45 ABG Oxyhemoglobin 99.2 (94-98) H 02/26/20 17:00 ABG Carboxyhemoglobin 1.2 % (0.0-5.0) 03/01/20 03:45 ABG Methemoglobin 0.7 % (0.0-1.5) 03/01/20 03:45 ABG Sodium 144.3 mmol/L (136.0-145.0) 02/29/20 05:14 ABG Potassium 4.0 mmol/L (3.40-4.50) 02/29/20 05:14 ABG Chloride 103.0 mmol/L (98-107) 02/29/20 05:14 ABG Glucose 185 mg/dL (65-95) H 02/29/20 05:14 Oxyhemoglobin 97.1 % (95.0-99.0) 03/01/20 03:45 Carboxyhemoglobin 0.4 (0.5-1.5) L 02/26/20 17:00 FiO2 40 % 03/01/20 03:45 Sodium 146 mmol/L (137-145) H 03/01/20 04:33 Potassium 4.0 mmol/L (3.6-5.0) 03/01/20 04:33 Chloride 104.9 mmol/L (98-107) 03/01/20 04:33 Carbon Dioxide 32 mmol/L (22-30) H 03/01/20 04:33 Anion Gap 13 mmol/L 03/01/20 04:33 BUN 17 mg/dL (9-20) 03/01/20 04:33 Creatinine < 0.2 mg/dL (0.8-1.3) L 03/01/20 04:33 Estimated GFR > 60 ml/min 03/01/20 04:33 BUN/Creatinine Ratio 85 % 03/01/20 04:33 Glucose 120 mg/dL (75-100) H 03/01/20 04:33 POC Glucose 120 mg/dL (70-105) H 03/02/20 06:13 Lactic Acid 1.00 mmol/L (0.7-2.0) 02/24/20 12:07 Calcium 8.5 mg/dL (8.4-10.2) 03/01/20 04:33 Magnesium 2.30 mg/dL (1.7-2.3) 02/25/20 04:00 Ferritin 1715.0 ng/mL (30.0-300.0) H 02/24/20 10:01 Total Bilirubin 0.80 mg/dL (0.1-1.2) 02/25/20 04:00 AST 17 units/L (5-40) 02/25/20 04:00 ALT 21 units/L (7-56) 02/25/20 04:00 Alkaline Phosphatase 105 units/L (35-129) 02/25/20 04:00 Lactate Dehydrogenase 303 units/L (91-180) H 02/24/20 09:19 Total Creatine Kinase 101 units/L (55-170) 02/24/20 19:35 CK-MB (CK-2) 3.5 ng/mL (0.0-4.0) 02/24/20 19:35 CK-MB (CK-2) Rel Index 3.4 (0-4) 02/24/20 19:35 Troponin T 0.034 ng/mL (0.00-0.029) H D 02/24/20 19:35 C-Reactive Protein 4.70 mg/dL (0.00-1.30) H 02/28/20 11:05 NT-Pro-B Natriuret Pep 48.30 pg/mL (0-900) 02/24/20 09:19 Total Protein 6.5 g/dL (6.3-8.2) 02/25/20 04:00 Albumin 3.5 g/dL (3.9-5) L 02/25/20 04:00 Albumin/Globulin Ratio 1.2 % 02/25/20 04:00 Prealbumin 0.090 g/L (0.200-0.400) L 02/28/20 12:54 Triglycerides 60 mg/dL (2-149) 02/24/20 09:19 Cholesterol 104 mg/dL (50-199) 02/24/20 09:19 LDL Cholesterol Direct 41 mg/dL (50-130) L 02/24/20 09:19 HDL Cholesterol 45 mg/dL (40-59) 02/24/20 09:19 Cholesterol/HDL Ratio 2.31 % 02/24/20 09:19 Procalcitonin 1.68 ng/mL (<0.15) 02/28/20 14:51 Arterial Blood Glucose 185 mg/dL (65-95) H 02/29/20 05:14 Arterial Blood Ionized Calcium 4.6 mg/dL (4.6-5.3) 02/29/20 05:14 Coronavirus (PCR) Negative (Negative) 02/25/20 09:03 - Diagnostic Impressions Diagnostic Impressions: Echocardiogram 02/26/20 10:41 Transthoracic Echocardiogram Indication: Elevated Trop BP: 116/75 HR: 85 Conclusions *Global left ventricular wall motion and contractility are within normal limits. *The estimated ejection fraction is 50-55%. *Abnormal left ventricular diastolic filling is observed, consistent with impaired relaxation. *There is no pericardial effusion. Findings Left Ventricle: The left ventricular chamber size is normal. Global left ventricular wall motion and contractility are within normal limits. Global left ventricular systolic function is normal. The estimated ejection fraction is 50-55%. Abnormal left ventricular diastolic filling is observed, consistent with impaired relaxation. Left Atrium: The left atrial chamber size is normal. Right Ventricle: The right ventricular cavity size is normal. Right Atrium: The right atrial cavity size is normal. Aortic Valve: Mild aortic leaflet calcification is visualized. There is no evidence of aortic regurgitation. Mitral Valve: The mitral valve leaflets are mildly thickened. There is no evidence of mitral regurgitation. Tricuspid Valve: The tricuspid valve leaflets are normal. There is trace tricuspid regurgitation. The right ventricular systolic pressure is calculated at 29 mmHg. Pulmonic Valve: The pulmonic valve is not well visualized. Pericardium: There is no pericardial effusion. Aorta: The aorta appears normal. Venous: The inferior vena cava is dilated. There is less than 50% respiratory change in the inferior vena cava dimension. Measurements Chambers 2D Name Value Normal Range IVSd (2D) 0.97 cm (0.6 - 1.1) LVPWd (2D) 0.93 cm (0.6 - 1.1) LVIDd (2D) 4 cm (3.7 - 5.6) LVIDs (2D) 2.73 cm (2 - 3.8) LV FS (2D) 31.67 % - EF Teichholz (2D) 60.23 % - Ao root diameter (2D) 3.51 cm (2 - 3.7) Volumes/Mass Name Value Normal Range LA ESV SP 4CH (A/L) 8.43 ml - LA ESV SP 2CH (A/L) 18.89 ml - LA ESV BP (A/L) 13.02 ml - LA ESV BP (A/L) index 8.8 ml/m2 - LA ESV SP 4CH (MOD) 7.22 ml - LA ESV SP 2CH (MOD) 18.15 ml - LA ESV BP (MOD) 11.47 ml - LA ESV BP (MOD) index 7.75 ml/m2 - Diastolic/Systolic Function Name Value Normal Range MV E-wave Vmax 0.51 m/sec - MV deceleration time 180.22 msec - MV A-wave Vmax 0.62 m/sec - MV E:A ratio 0.82 ratio - Aortic Valve Name Value Normal Range AV Vmax 1.17 m/sec - AV VTI 19.71 cm - AV peak gradient 5.44 mmHg - AV mean gradient 3.38 mmHg - LVOT diameter 2.26 cm - LVOT Vmax 0.89 m/sec - LVOT VTI 13.72 cm - LVOT peak gradient 3.17 mmHg - LVOT mean gradient 1.67 mmHg - SV LVOT 55.03 ml - SHARAD (continuity Vmax) 3.06 cm2 - SHARAD (continuity VTI) 2.79 cm2 - Tricuspid Valve Name Value Normal Range TR Vmax 2.3 m/sec - TR peak gradient 21 mmHg - RAP 8 mmHg - RVSP 29 mmHg - IVC diameter 2.59 cm (1.2 - 2.3) Pulmonic Valve/Qp:Qs Name Value Normal Range PV acceleration time 68.51 msec - Reardon/IV: Voiding Method Condom Catheter IV Catheter Type [Left Wrist] Peripheral IV IV Catheter Type [Right INT / Saline Lock Forearm] IV Catheter Type [Right Triple Lumen Cath Internal Jugular] IV Catheter Type [Left Forearm INT / Saline Lock ] IV Catheter Type [Right Triple Lumen Cath Femoral] IV Catheter Type [Right INT / Saline Lock Antecubital] Active Medications - Current Medications Current Medications: Generic Name Dose Route Start Last Admin Trade Name Freq PRN Reason Stop Dose Admin Acetaminophen 650 mg 02/24/20 15:13 02/28/20 09:18 Tylenol PO 650 mg Q4H PRN Administration Pain, Mild (1-3) Albuterol 2.5 mg 02/24/20 15:13 Proventil IH Q4HRT PRN Shortness Of Breath Lipase/Protease/Amylase 1 each 02/26/20 11:[address] 10,500 Unit FEEDTUBE PRN PRN For Clogged Feeding Tube Enoxaparin Sodium 40 mg 02/24/20 22:00 03/01/20 21:30 Enoxaparin SUB-Q 40 mg QDAY@2200 ALISA Administration Protocol Dopamine HCl/Dextrose 800 mg in 250 mls @ 3.338 mls/hr 02/26/20 16:00 02/26/20 17:11 Intropin Drip 800 Mg/D5w 250 Ml IV 0 mcg/kg/min TITR ALISA 0 mls/hr Titration Protocol 2 MCG/KG/MIN Cefepime HCl 2 gm in 100 mls @ 200 mls/hr 03/01/20 14:00 03/02/20 06:43 Cefepime/Ns 2 Gm/100 Ml IV 200 mls/hr Q8HR ALISA Administration Protocol Vancomycin HCl 1 gm in 250 mls @ 166.667 mls/hr 03/02/20 04:00 03/02/20 04:51 Vancomycin/Ns 1 Gm/250 Ml IV 166.667 mls/hr Q12H ALISA Administration Lansoprazole 30 mg 02/28/20 10:00 03/01/20 09:29 Prevacid Solutab FEEDTUBE 30 mg QDAY ALISA Administration Metoprolol Tartrate 12.5 mg 02/24/20 22:00 03/01/20 21:30 Metoprolol PO 12.5 mg BID ALISA Administration Morphine Sulfate 2 mg 02/29/20 16:42 03/02/20 08:42 Morphine IV 2 mg Q4H PRN Administration Pain, Moderate (4-6) Simple Syrup 15 ml 02/26/20 11:16 Simple Syrup FEEDTUBE PRN PRN Hypoglycemia Simple Syrup 30 ml 02/26/20 11:16 Simple Syrup FEEDTUBE PRN PRN Hypoglycemia Sodium Bicarbonate 325 mg 02/26/20 11:16 Sodium Bicarbonate FEEDTUBE PRN PRN For Clogged Feeding Tube Nutrition/Malnutrition Assess - Dietary Evaluation Nutrition/Malnutrition Findings: Nutrition Notes Start: 02/26/20 10:40 Freq: Status: Active Protocol: Document 02/29/20 11:49 VALDO (Rec: 02/29/20 12:04 VALDO [id number]) Co-Sign 02/29/20 11:49 MK Nutrition Notes Initial or Follow up Reassessment Current Diagnosis Decubitus(Pressure Ulcer), Sepsis,Respiratory Failure Other Pertinent Diagnosis COVID-19 (-), ALS, pneumonia, Hip/buttock PU Current Diet Osmolite 1.5 60ml/hr (goal rate) Labs/Tests Na 148 BG 173 Pertinent Medications Decadron Height 6 ft Weight 63.1 kg Usual Body Weight 65.91 kg [place] Body Weight (kg) 80.90 BMI 18.8 Weight Status Underweight Subjective/Other Information F/u TF and Will. Saw pt and he was able to to nod yes/no. Pt reported wt loss in last year. Clavicle and ribs protruding, mild to moderate. 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 Yes Is Patient Ambulatory and/or Out of Bed No REE-([facility]-confined to bed) 1785.708 Kcal/Kg value to use for calculation 35 Approximate Energy Requirements Using 2209 kcal/Kg Calculation Used for Recommendations Kcal/kg Additional Notes Protein 1.2-1.5-134g Fluid: 1ml/kcal Nutrition Intervention Change Diet Order: Change tube feeding formula to Vital AF 1.2 at 75ml/hr. Flush 200ml q4h. Nutrition Support: Vital AF 1.2 at 75ml/hr. Flush 200ml q4h Kcal 2,160 Protein (gm) 135 Fluid (mL) 1,460 Add Supplement/Snack (indicate name/kcal Will BID /protein ) Provides kCal: 190 Provides Protein (gm) 5 Goal #1 Meet at least 80% of energy and protein needs via TF Goal #2 Wound healing Anticipated Discharge Needs: Unable to determine at this time Follow-Up By: 03/02/20 Additional Comments F/u TF start/tolerance, Will
--- NOTE | 2020-03-02 09:14 | Progress Note ---
Assessment and Plan Cultures: Blood culture no growth today SARS CoV2 PCR negative Sputum culture with normal respiratory bernice. Assessment: 59 years old female with history of ALS with chronic respiratory failure on home trilogy BiPAP, admitted on 02/24/2020 due to worsening shortness of breath for 24 hours: #Severe sepsis: likely due to bilateral pneumonia +/- left gluteal necrotic pressure ulcer. Remains with low-grade fever, leukocytosis #Severe bilateral pneumonia: Likely community-acquired pneumonia. Procalcitonin elevated-1.13. CTA shows no PE but multifocal pneumonia with predominance left lower lobe. No DVT on US. Elevated D-dimer -1311. SARS-CoV-2 PCR negative. Sputum culture normal respiratory bernice. CRP 26-->4. Prcal 1.1-->1.6. Repeat CXR near complete atelectasis resolved. #Left gluteal necrotic pressure ulcer: S/p debridement, not infected per wound care. Now bleeding #Acute on chronic mixed respiratory failure: Intubated, re intubated overnight. #ALS Recommendations: -monitor bleeding at surgical site -continue cefepime 2 g iv q8h to cover sacral wound - day 2 -continue vancomycin w PL consult to cover sacral wound - day 2 -per Dr Flowers no suspicion for osteomyelitis -Monitor fever and leukocytosis Will follow Diana Maravilla MD Infectious Diseases Track Helper [facility] M [phone] O [phone] Subjective Principal diagnosis: Ac on Ch Hypercapnic & hypoxemic Resp Failure; Severe Sepsi s; Jamar PNA; ALS Objective - Constitutional Vitals: Vital Signs Temp Pulse Resp BP Pulse Ox 100.1 F H 93 H 21 124/86 997 H 03/02/20 08:00 03/02/20 08:48 03/02/20 08:48 03/02/20 08:48 03/02/20 08:48 Temperature -Last 24 Hours Temperature 100.1 F Temperature 98.8 F Temperature 98.8 F Temperature 98.8 F Temperature 99.4 F Temperature 98.2 F - Labs CBC & Chem 7: 03/01/20 04:33 03/01/20 04:33 Labs: Abnormal lab results 03/01/20 03/01/20 03/01/20 Range/Units 12:32 17:38 23:46 POC Glucose 128 H 114 H 121 H (70-105) mg/dL 03/02/20 Range/Units 06:13 POC Glucose 120 H (70-105) mg/dL
[2020-03-02 10:30] LABS: BUN/Creatinine Ratio 75; Blood Urea Nitrogen 15 mg/dL (9-20); Calcium 8.5 mg/dL (8.4-10.2); Hemolysis Index 3
[2020-03-02 10:45] LABS: Hematocrit 40.1 % (35.5-45.6); Hemoglobin 13.2 gm/dl (11.8-15.2); Mean Corpuscular HGB Conc 33 % (32-34); Mean Corpuscular Volume 85 fl (84-94); Platelet Count 494 K/mm3 (140-440); Red Blood Count 4.75 M/mm3 (3.65-5.03); Red Cell Distribution Width 15.3 % (13.2-15.2)
[2020-03-02] MEDS: METOPROLOL TARTRATE 25 MG TAB PO SCH ×2 (10:48→22:05)
[2020-03-02] MEDS: LANSOPRAZOLE 30 MG SOLUTAB FEEDTUBE SCH (10:48)
[2020-03-02 11:48] LABS: Basophils % (Manual) 0 % (0.0-1.8); Eosinophils % (Manual) 0 % (0.0-4.3); RBC Morphology Normal; Total Cells Counted 100
[2020-03-02 11:56] LABS: Platelet Estimate Consistent w Auto
--- NOTE | 2020-03-02 12:19 | Progress Note ---
Assessment and Plan - Patient Problems (1) Pressure ulcer of left buttock, unstageable Current Visit: Yes Status: Acute (2) Severe protein-calorie malnutrition Current Visit: Yes Status: Acute (3) Hemorrhage postprocedure Current Visit: Yes Status: Acute (4) Bleeding from wound Current Visit: Yes Status: Acute Plan to address problem: 1) Bleeding will be treated with silver nitrate chemical cauterization at the bedside. Subjective Date of service: 03/02/20 Narrative: I was asked to see pt re bleeding from his left buttock wound. This was debrided yesterday. Objective Vital Signs - 12hr 03/02/20 03/02/20 03/02/20 01:00 02:00 03:00 Temperature Pulse Rate 76 73 73 Pulse Rate [ From Monitor] Respiratory 21 16 20 Rate Blood Pressure 116/74 111/73 116/75 O2 Sat by Pulse 98 96 97 Oximetry 03/02/20 03/02/20 03/02/20 04:00 05:00 06:00 Temperature 98.8 F Pulse Rate 78 79 81 Pulse Rate [ From Monitor] Respiratory 17 21 21 Rate Blood Pressure 118/72 124/78 124/86 O2 Sat by Pulse 96 95 Oximetry 03/02/20 03/02/20 03/02/20 06:05 07:00 08:00 Temperature 100.1 F H Pulse Rate 89 85 95 H Pulse Rate [ 95 H From Monitor] Respiratory 19 22 Rate Blood Pressure 124/86 145/92 152/101 O2 Sat by Pulse 96 98 95 Oximetry 03/02/20 03/02/20 03/02/20 08:48 09:00 10:00 Temperature Pulse Rate 93 H 100 H 100 H Pulse Rate [ From Monitor] Respiratory 21 23 20 Rate Blood Pressure 124/86 158/108 134/91 O2 Sat by Pulse 97 91 93 Oximetry 03/02/20 03/02/20 03/02/20 10:48 11:00 11:20 Temperature Pulse Rate 93 H 104 H 104 H Pulse Rate [ From Monitor] Respiratory 22 22 Rate Blood Pressure 124/86 132/93 132/93 O2 Sat by Pulse 97 97 Oximetry - Integumentary other (Left buttock wound: There is a small to moderate amount of clot within the wound. When this was removed, 2 small arterial bleeders were noted. ) - Labs 03/02/20 09:47 03/02/20 09:47 Diabetes panel 03/02/20 Range/Units 09:47 Sodium 140 (137-145) mmol/L Potassium 3.8 (3.6-5.0) mmol/L Chloride 101.8 (98-107) mmol/L Carbon Dioxide 29 (22-30) mmol/L BUN 15 (9-20) mg/dL Creatinine < 0.2 L (0.8-1.3) mg/dL Glucose 177 H (75-100) mg/dL Calcium 8.5 (8.4-10.2) mg/dL Calcium panel 03/02/20 Range/Units 09:47 Calcium 8.5 (8.4-10.2) mg/dL Pituitary panel 03/02/20 Range/Units 09:47 Sodium 140 (137-145) mmol/L Potassium 3.8 (3.6-5.0) mmol/L Chloride 101.8 (98-107) mmol/L Carbon Dioxide 29 (22-30) mmol/L BUN 15 (9-20) mg/dL Creatinine < 0.2 L (0.8-1.3) mg/dL Glucose 177 H (75-100) mg/dL Calcium 8.5 (8.4-10.2) mg/dL Adrenal panel 03/02/20 Range/Units 09:47 Sodium 140 (137-145) mmol/L Potassium 3.8 (3.6-5.0) mmol/L Chloride 101.8 (98-107) mmol/L Carbon Dioxide 29 (22-30) mmol/L BUN 15 (9-20) mg/dL Creatinine < 0.2 L (0.8-1.3) mg/dL Glucose 177 H (75-100) mg/dL Calcium 8.5 (8.4-10.2) mg/dL
--- NOTE | 2020-03-02 12:24 | Procedure Note ---
Date of procedure: 03/02/20 Pre-op diagnosis: Bleeding from left buttock wound Post-op diagnosis: same Procedure: Chemical cauterization of bleeding left buttock wound Description of procedure: Pt was placed right side down. The left buttock wound was exposed with the aid of the pt's nurse. Two silver nitrate sticks were applied to the two arterial bleeders and the silver nitrate sticks were also applied to several areas of venous oozing. All bleeding was stopped. Wound was packed open with dry 4 X 4's and the dressing secured with silk tape. Pt tolerated the procedure well. Anesthesia: none Surgeon: JULISSA LUNDBERG Estimated blood loss: minimal Pathology: none Condition: stable Disposition: no change
--- NOTE | 2020-03-02 15:53 | Progress Note ---
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 Respiratory Failure Severe Sepsis with Shock Bilateral Pneumonia (Possible aspiration) History of ALS on Trilogy Oropharyngeal Dysphagia PUI-COVID Acute toxic metabolic encephalopathy Elevated D-dimer Elevated troponin possibly type 2 ischemia - get ABg at 9pm tonight if still on PSV 10/6 - continue to rest on full support qhs - still plan for trial of extubation if passes SBT tomorrow - reduce free water 100 mls q4h re: hypernatremia resolution - continue care as below otherwise; - morphine sulfate 2mg IV q4h ordered - continue Daily SAT and SBT assessment as tolerated - wean supplemental oxygen for target O2 sat's > 92% acutely - bronchodilators with pulmonary hygiene per RT - VAP bundle addressed - continue lung protective strategies - continue bronchodilators with pulmonary hygiene per RT - wean per pulmonary driven protocols otherwise - sedation prn for target RASS 0 to -1 - empiric antiinfectives per ID rec's (Rocephin and Zithromax) - COVID-19 isolation (Airborne & Contact) - empiric Dexamethasonme - follow COVID-19 test results - trend inflammatory markers to aid clinical decision making - enteral nutrition at goal rate as tolerated - Aspiration precautions - accuchecks with glycemic control per SSI (While critically ill target blood glucose of 140-180 mg/dL; avoid hypoglycemia) - avoid nephrotoxins, renally dose all medications - avoid benzodiazepine's, reduce the possibility of delirium - prn analgesia per CPOT score - Maintenance of sleep-wake cycle, avoid delirium - aspiration precautions - G.I. & VTE prophylaxis - PT/OT/ROM exercises - mobility protocols for pressure ulcer prophylaxis - Monitor hemodynamics closely - continue other care per attending / other consultants - discharge planning ongoing concurrently .... Re-evaluate in am & prn CONDITION: CRITICAL PROGNOSIS: GUARDED CODE STATUS: FULL CODE The high probability of a clinically significant, sudden or life-threatening deterioration of the [respiratory, cardiovascular & neurologic] system(s) required my full and direct attention, intervention and personal management. The aggregate critical care time was [35] minutes without overlap. Time includes spent on; [x] Data Review and interpretation [x] Patient assessment and monitoring of vital signs [x] Documentation [x] Medication orders and management Subjective Date of service: 03/02/20 Principal diagnosis: Ac on Ch Hypercapnic & hypoxemic Resp Failure; Severe Sepsis; Jamar PNA; ALS Interval history: Patient is seen today for: Acute on Chronic Hypercapnic & hypoxemic Respiratory Failure; Severe Sepsis with Shock; Bilateral Pneumonia (Possible aspiration); History of ALS on Trilogy; PUI-COVID; Acute toxic metabolic encephalopathy Seen and examined at bedside; 24hour events reviewed; nursing and respiratory care staff consulted; no adverse overnight events reported to me; resting in bed; remains on MVS; tolerating SBT and p-supp dropped to 10 cm H2O; wound bleed er post debridement yesterday cauterized today; denies acute chest pains or palpitations Objective Vital Signs - 12hr 03/02/20 03/02/20 03/02/20 04:00 05:00 06:00 Temperature 98.8 F Pulse Rate 78 79 81 Pulse Rate [ From Monitor] Respiratory 17 21 21 Rate Blood Pressure 118/72 124/78 124/86 O2 Sat by Pulse 96 95 Oximetry 03/02/20 03/02/20 03/02/20 06:05 07:00 08:00 Temperature 100.1 F H Pulse Rate 89 85 91 H Pulse Rate [ 95 H From Monitor] Respiratory 19 22 Rate Blood Pressure 124/86 145/92 152/101 O2 Sat by Pulse 96 98 95 Oximetry 03/02/20 03/02/20 03/02/20 08:48 09:00 10:00 Temperature Pulse Rate 93 H 100 H 100 H Pulse Rate [ From Monitor] Respiratory 21 23 20 Rate Blood Pressure 124/86 158/108 134/91 O2 Sat by Pulse 97 91 93 Oximetry 03/02/20 03/02/20 03/02/20 10:48 11:00 11:20 Temperature Pulse Rate 93 H 104 H 104 H Pulse Rate [ From Monitor] Respiratory 22 22 Rate Blood Pressure 124/86 132/93 132/93 O2 Sat by Pulse 97 97 Oximetry 03/02/20 03/02/20 03/02/20 12:00 13:00 15:18 Temperature 99.6 F Pulse Rate 93 H 96 H 96 H Pulse Rate [ 93 H From Monitor] Respiratory 24 20 20 Rate Blood Pressure 129/91 134/96 134/96 O2 Sat by Pulse 98 97 97 Oximetry Constitutional: no acute distress, other (thin middle aged male with mildly increased respiratory effort at rest on MVS) Eyes: non-icteric ENT: oropharynx moist, other (ETT 23 cm LYNETTE) Neck: supple, no lymphadenopathy, no JVD Effort: mildly labored Ascultation: Bilateral: diminished breath sounds, rhonchi (scant in bases) Percussion: Bilateral: not dull Cardiovascular: regular rate and rhythm, other (S1,S2, no murmurs) Gastrointestinal: normoactive bowel sounds, soft, non-tender, non-distended Integumentary: normal, decubitus ulcer (sacral / gluteal) Extremities: no cyanosis, no edema, pulses normal, other (atrophic looking limbs) Neurologic: pupils equal and round, other (motor strength in extremities 1-2/5) Psychiatric: mood appropriate, affect normal CBC and BMP: 03/02/20 09:47 03/02/20 09:47 ABG, PT/INR, D-dimer: ABG ABG pH 7.492 pH Units (7.350-7.450) H 03/01/20 03:45 POC ABG pCO2 54.3 mmHg (32.0-48.0) H 02/29/20 05:14 ABG pCO2 43.1 mm Hg 03/01/20 03:45 POC ABG pO2 124.8 mmHg (83-108) H 02/29/20 05:14 ABG pO2 157.1 mm Hg (80.0-90.0) H 03/01/20 03:45 POC ABG HCO3 35.3 02/29/20 05:14 ABG O2 Saturation 99.0 % (95.0-99.0) 03/01/20 03:45 PT/INR, D-dimer PT 15.6 Sec. (12.2-14.9) H 02/24/20 09:19 INR 1.21 (0.87-1.13) H 02/24/20 09:19 D-Dimer 1311.96 ng/mlDDU (0-234) H 02/24/20 09:19 Abnormal lab findings: Abnormal Labs 02/24/20 02/24/20 02/24/20 09:19 09:19 09:19 WBC 20.2 H RBC 5.05 H MCV MCH RDW 15.3 H Plt Count Lymph % (Auto) [place] # (Auto) Seg Neutrophils % Seg Neuts % (Manual) 86.0 H Lymphocytes % (Manual) 1.0 L Seg Neutrophils # Seg Neutrophils # Man 17.4 H Lymphocytes # (Manual) 0.2 L Monocytes # (Manual) Eosinophils # (Manual) PT 15.6 H INR 1.21 H D-Dimer 1311.96 H ABG pH POC ABG pCO2 POC ABG pO2 ABG pO2 ABG HCO3 ABG O2 Saturation ABG Base Excess ABG Hemoglobin ABG Oxyhemoglobin ABG Potassium ABG Glucose Oxyhemoglobin Carboxyhemoglobin Sodium 135 L Potassium 3.2 L Chloride 92.2 L Carbon Dioxide BUN 6 L Creatinine < 0.2 L Glucose 124 H POC Glucose Ferritin Total Bilirubin 2.30 H Alkaline Phosphatase 132 H Lactate Dehydrogenase Troponin T 0.080 H C-Reactive Protein Albumin 3.6 L Prealbumin LDL Cholesterol Direct 41 L Arterial Blood Glucose Arterial Blood Ionized Calcium 02/24/20 02/24/20 02/24/20 09:19 09:58 10:01 WBC RBC MCV MCH RDW Plt Count Lymph % (Auto) [place] # (Auto) Seg Neutrophils % Seg Neuts % (Manual) Lymphocytes % (Manual) Seg Neutrophils # Seg Neutrophils # Man Lymphocytes # (Manual) Monocytes # (Manual) Eosinophils # (Manual) PT INR D-Dimer ABG pH 7.176 L* POC ABG pCO2 POC ABG pO2 ABG pO2 91.2 H ABG HCO3 ABG O2 Saturation ABG Base Excess -4.6 L ABG Hemoglobin ABG Oxyhemoglobin ABG Potassium ABG Glucose Oxyhemoglobin 92.6 L Carboxyhemoglobin Sodium Potassium Chloride Carbon Dioxide BUN Creatinine Glucose POC Glucose Ferritin 1715.0 H Total Bilirubin Alkaline Phosphatase Lactate Dehydrogenase 303 H Troponin T C-Reactive Protein 26.10 H Albumin Prealbumin LDL Cholesterol Direct Arterial Blood Glucose Arterial Blood Ionized Calcium 02/24/20 02/24/20 02/24/20 11:52 13:45 19:35 WBC RBC MCV MCH RDW Plt Count Lymph % (Auto) [place] # (Auto) Seg Neutrophils % Seg Neuts % (Manual) Lymphocytes % (Manual) Seg Neutrophils # Seg Neutrophils # Man Lymphocytes # (Manual) Monocytes # (Manual) Eosinophils # (Manual) PT INR D-Dimer ABG pH 7.051 L* 7.300 L POC ABG pCO2 POC ABG pO2 ABG pO2 94.7 H 75.1 L ABG HCO3 18.0 L ABG O2 Saturation 93.5 L ABG Base Excess -6.8 L -7.8 L ABG Hemoglobin 13.2 L 11.9 L ABG Oxyhemoglobin ABG Potassium ABG Glucose Oxyhemoglobin 91.0 L 92.7 L Carboxyhemoglobin Sodium Potassium Chloride Carbon Dioxide BUN Creatinine Glucose POC Glucose Ferritin Total Bilirubin Alkaline Phosphatase Lactate Dehydrogenase Troponin T 0.034 H D C-Reactive Protein Albumin Prealbumin LDL Cholesterol Direct Arterial Blood Glucose Arterial Blood Ionized Calcium 02/25/20 02/25/20 02/25/20 04:00 04:00 12:26 WBC 22.9 H RBC MCV 83 L MCH 27 L RDW Plt Count 468 H Lymph % (Auto) [place] # (Auto) Seg Neutrophils % Seg Neuts % (Manual) 89.0 H Lymphocytes % (Manual) 7.0 L Seg Neutrophils # Seg Neutrophils # Man 20.4 H Lymphocytes # (Manual) Monocytes # (Manual) Eosinophils # (Manual) PT INR D-Dimer ABG pH POC ABG pCO2 POC ABG pO2 ABG pO2 ABG HCO3 ABG O2 Saturation ABG Base Excess ABG Hemoglobin ABG Oxyhemoglobin ABG Potassium 2.6 L ABG Glucose 142 H Oxyhemoglobin Carboxyhemoglobin Sodium Potassium 3.2 L Chloride Carbon Dioxide 18 L BUN Creatinine 0.2 L Glucose 114 H POC Glucose Ferritin Total Bilirubin Alkaline Phosphatase Lactate Dehydrogenase Troponin T C-Reactive Protein Albumin 3.5 L Prealbumin LDL Cholesterol Direct Arterial Blood Glucose 142 H Arterial Blood Ionized Calcium 02/26/20 02/26/20 02/26/20 15:58 17:00 23:43 WBC RBC MCV MCH RDW Plt Count Lymph % (Auto) [place] # (Auto) Seg Neutrophils % Seg Neuts % (Manual) Lymphocytes % (Manual) Seg Neutrophils # Seg Neutrophils # Man Lymphocytes # (Manual) Monocytes # (Manual) Eosinophils # (Manual) PT INR D-Dimer ABG pH 7.502 H POC ABG pCO2 POC ABG pO2 213.6 H ABG pO2 ABG HCO3 ABG O2 Saturation ABG Base Excess ABG Hemoglobin ABG Oxyhemoglobin 99.2 H ABG Potassium 2.9 L ABG Glucose 160 H Oxyhemoglobin Carboxyhemoglobin 0.4 L Sodium Potassium Chloride Carbon Dioxide BUN Creatinine Glucose POC Glucose 189 H 120 H Ferritin Total Bilirubin Alkaline Phosphatase Lactate Dehydrogenase Troponin T C-Reactive Protein Albumin Prealbumin LDL Cholesterol Direct Arterial Blood Glucose 160 H Arterial Blood Ionized Calcium 4.5 L 02/27/20 02/27/20 02/27/20 05:00 07:04 17:45 WBC RBC MCV MCH RDW Plt Count Lymph % (Auto) [place] # (Auto) Seg Neutrophils % Seg Neuts % (Manual) Lymphocytes % (Manual) Seg Neutrophils # Seg Neutrophils # Man Lymphocytes # (Manual) Monocytes # (Manual) Eosinophils # (Manual) PT INR D-Dimer ABG pH 7.524 H POC ABG pCO2 POC ABG pO2 ABG pO2 ABG HCO3 ABG O2 Saturation ABG Base Excess ABG Hemoglobin ABG Oxyhemoglobin ABG Potassium 3.0 L ABG Glucose 143 H Oxyhemoglobin Carboxyhemoglobin Sodium Potassium Chloride Carbon Dioxide BUN Creatinine Glucose POC Glucose 154 H 175 H Ferritin Total Bilirubin Alkaline Phosphatase Lactate Dehydrogenase Troponin T C-Reactive Protein Albumin Prealbumin LDL Cholesterol Direct Arterial Blood Glucose 143 H Arterial Blood Ionized Calcium 02/27/20 02/28/20 02/28/20 Unknown 00:21 04:15 WBC 18.7 H RBC MCV MCH RDW Plt Count Lymph % (Auto) 8.7 L [place] # (Auto) 1.2 H Seg Neutrophils % 84.6 H Seg Neuts % (Manual) Lymphocytes % (Manual) Seg Neutrophils # 15.9 H Seg Neutrophils # Man Lymphocytes # (Manual) Monocytes # (Manual) Eosinophils # (Manual) PT INR D-Dimer ABG pH POC ABG pCO2 POC ABG pO2 ABG pO2 ABG HCO3 ABG O2 Saturation ABG Base Excess ABG Hemoglobin ABG Oxyhemoglobin ABG Potassium ABG Glucose Oxyhemoglobin Carboxyhemoglobin Sodium Potassium 2.9 L* Chloride Carbon Dioxide 33 H D BUN Creatinine < 0.2 L Glucose 157 H POC Glucose 134 H Ferritin Total Bilirubin Alkaline Phosphatase Lactate Dehydrogenase Troponin T C-Reactive Protein Albumin Prealbumin LDL Cholesterol Direct Arterial Blood Glucose Arterial Blood Ionized Calcium 02/28/20 02/28/20 02/28/20 04:15 05:16 05:39 WBC RBC MCV MCH RDW Plt Count Lymph % (Auto) [place] # (Auto) Seg Neutrophils % Seg Neuts % (Manual) Lymphocytes % (Manual) Seg Neutrophils # Seg Neutrophils # Man Lymphocytes # (Manual) Monocytes # (Manual) Eosinophils # (Manual) PT INR D-Dimer ABG pH POC ABG pCO2 POC ABG pO2 ABG pO2 142.9 H ABG HCO3 34.1 H ABG O2 Saturation ABG Base Excess 8.3 H ABG Hemoglobin ABG Oxyhemoglobin ABG Potassium ABG Glucose Oxyhemoglobin Carboxyhemoglobin Sodium 151 H Potassium Chloride Carbon Dioxide 32 H BUN Creatinine 0.2 L Glucose 167 H POC Glucose 138 H Ferritin Total Bilirubin Alkaline Phosphatase Lactate Dehydrogenase Troponin T C-Reactive Protein Albumin Prealbumin LDL Cholesterol Direct Arterial Blood Glucose Arterial Blood Ionized Calcium 02/28/20 02/28/20 02/28/20 11:05 11:33 12:54 WBC RBC MCV MCH RDW Plt Count Lymph % (Auto) [place] # (Auto) Seg Neutrophils % Seg Neuts % (Manual) Lymphocytes % (Manual) Seg Neutrophils # Seg Neutrophils # Man Lymphocytes # (Manual) Monocytes # (Manual) Eosinophils # (Manual) PT INR D-Dimer ABG pH POC ABG pCO2 POC ABG pO2 ABG pO2 ABG HCO3 ABG O2 Saturation ABG Base Excess ABG Hemoglobin ABG Oxyhemoglobin ABG Potassium ABG Glucose Oxyhemoglobin Carboxyhemoglobin Sodium Potassium Chloride Carbon Dioxide BUN Creatinine Glucose POC Glucose 160 H Ferritin Total Bilirubin Alkaline Phosphatase Lactate Dehydrogenase Troponin T C-Reactive Protein 4.70 H Albumin Prealbumin 0.090 L LDL Cholesterol Direct Arterial Blood Glucose Arterial Blood Ionized Calcium 02/28/20 02/29/20 02/29/20 17:34 00:44 04:05 WBC 19.6 H RBC MCV MCH 27 L RDW 15.4 H Plt Count Lymph % (Auto) [place] # (Auto) Seg Neutrophils % Seg Neuts % (Manual) 86.0 H Lymphocytes % (Manual) 7.0 L Seg Neutrophils # Seg Neutrophils # Man 16.9 H Lymphocytes # (Manual) Monocytes # (Manual) 1.2 H Eosinophils # (Manual) PT INR D-Dimer ABG pH POC ABG pCO2 POC ABG pO2 ABG pO2 ABG HCO3 ABG O2 Saturation ABG Base Excess ABG Hemoglobin ABG Oxyhemoglobin ABG Potassium ABG Glucose Oxyhemoglobin Carboxyhemoglobin Sodium Potassium Chloride Carbon Dioxide BUN Creatinine Glucose POC Glucose 136 H 156 H Ferritin Total Bilirubin Alkaline Phosphatase Lactate Dehydrogenase Troponin T C-Reactive Protein Albumin Prealbumin LDL Cholesterol Direct Arterial Blood Glucose Arterial Blood Ionized Calcium 02/29/20 02/29/20 02/29/20 04:05 05:14 05:33 WBC RBC MCV MCH RDW Plt Count Lymph % (Auto) [place] # (Auto) Seg Neutrophils % Seg Neuts % (Manual) Lymphocytes % (Manual) Seg Neutrophils # Seg Neutrophils # Man Lymphocytes # (Manual) Monocytes # (Manual) Eosinophils # (Manual) PT INR D-Dimer ABG pH POC ABG pCO2 54.3 H POC ABG pO2 124.8 H ABG pO2 ABG HCO3 ABG O2 Saturation ABG Base Excess ABG Hemoglobin ABG Oxyhemoglobin ABG Potassium ABG Glucose 185 H Oxyhemoglobin Carboxyhemoglobin Sodium 148 H Potassium Chloride Carbon Dioxide 33 H BUN Creatinine < 0.2 L Glucose 173 H POC Glucose 152 H Ferritin Total Bilirubin Alkaline Phosphatase Lactate Dehydrogenase Troponin T C-Reactive Protein Albumin Prealbumin LDL Cholesterol Direct Arterial Blood Glucose 185 H Arterial Blood Ionized Calcium 03/01/20 03/01/20 03/01/20 00:00 03:45 04:33 WBC 23.1 H RBC MCV MCH 27 L RDW 15.3 H Plt Count Lymph % (Auto) [place] # (Auto) Seg Neutrophils % Seg Neuts % (Manual) 92.0 H Lymphocytes % (Manual) 6.0 L Seg Neutrophils # Seg Neutrophils # Man 21.3 H Lymphocytes # (Manual) Monocytes # (Manual) Eosinophils # (Manual) 0.5 H PT INR D-Dimer ABG pH 7.492 H POC ABG pCO2 POC ABG pO2 ABG pO2 157.1 H ABG HCO3 32.3 H ABG O2 Saturation ABG Base Excess 8.1 H ABG Hemoglobin 13.2 L ABG Oxyhemoglobin ABG Potassium ABG Glucose Oxyhemoglobin Carboxyhemoglobin Sodium Potassium Chloride Carbon Dioxide BUN Creatinine Glucose POC Glucose 109 H Ferritin Total Bilirubin Alkaline Phosphatase Lactate Dehydrogenase Troponin T C-Reactive Protein Albumin Prealbumin LDL Cholesterol Direct Arterial Blood Glucose Arterial Blood Ionized Calcium 03/01/20 03/01/20 03/01/20 04:33 05:29 12:32 WBC RBC MCV MCH RDW Plt Count Lymph % (Auto) [place] # (Auto) Seg Neutrophils % Seg Neuts % (Manual) Lymphocytes % (Manual) Seg Neutrophils # Seg Neutrophils # Man Lymphocytes # (Manual) Monocytes # (Manual) Eosinophils # (Manual) PT INR D-Dimer ABG pH POC ABG pCO2 POC ABG pO2 ABG pO2 ABG HCO3 ABG O2 Saturation ABG Base Excess ABG Hemoglobin ABG Oxyhemoglobin ABG Potassium ABG Glucose Oxyhemoglobin Carboxyhemoglobin Sodium 146 H Potassium Chloride Carbon Dioxide 32 H BUN Creatinine < 0.2 L Glucose 120 H POC Glucose 120 H 128 H Ferritin Total Bilirubin Alkaline Phosphatase Lactate Dehydrogenase Troponin T C-Reactive Protein Albumin Prealbumin LDL Cholesterol Direct Arterial Blood Glucose Arterial Blood Ionized Calcium 03/01/20 03/01/20 03/02/20 17:38 23:46 06:13 WBC RBC MCV MCH RDW Plt Count Lymph % (Auto) [place] # (Auto) Seg Neutrophils % Seg Neuts % (Manual) Lymphocytes % (Manual) Seg Neutrophils # Seg Neutrophils # Man Lymphocytes # (Manual) Monocytes # (Manual) Eosinophils # (Manual) PT INR D-Dimer ABG pH POC ABG pCO2 POC ABG pO2 ABG pO2 ABG HCO3 ABG O2 Saturation ABG Base Excess ABG Hemoglobin ABG Oxyhemoglobin ABG Potassium ABG Glucose Oxyhemoglobin Carboxyhemoglobin Sodium Potassium Chloride Carbon Dioxide BUN Creatinine Glucose POC Glucose 114 H 121 H 120 H Ferritin Total Bilirubin Alkaline Phosphatase Lactate Dehydrogenase Troponin T C-Reactive Protein Albumin Prealbumin LDL Cholesterol Direct Arterial Blood Glucose Arterial Blood Ionized Calcium 03/02/20 03/02/20 09:47 09:47 WBC 23.6 H RBC MCV MCH RDW 15.3 H Plt Count 494 H Lymph % (Auto) [place] # (Auto) Seg Neutrophils % Seg Neuts % (Manual) 85.0 H Lymphocytes % (Manual) 6.0 L Seg Neutrophils # Seg Neutrophils # Man 20.1 H Lymphocytes # (Manual) Monocytes # (Manual) 1.7 H Eosinophils # (Manual) PT INR D-Dimer ABG pH POC ABG pCO2 POC ABG pO2 ABG pO2 ABG HCO3 ABG O2 Saturation ABG Base Excess ABG Hemoglobin ABG Oxyhemoglobin ABG Potassium ABG Glucose Oxyhemoglobin Carboxyhemoglobin Sodium Potassium Chloride Carbon Dioxide BUN Creatinine < 0.2 L Glucose 177 H POC Glucose Ferritin Total Bilirubin Alkaline Phosphatase Lactate Dehydrogenase Troponin T C-Reactive Protein Albumin Prealbumin LDL Cholesterol Direct Arterial Blood Glucose Arterial Blood Ionized Calcium Chest x-ray: pending Allied health notes reviewed: nursing
[2020-03-02] MEDS: ENOXAPARIN 40 MG/0.4 ML INJ SUB-Q SCH (22:06)
[2020-03-03] MEDS: VANCOMYCIN/NS 1 GM/250 ML 1 GM/250 ML BAG IV SCH ×2 (04:26→17:25)
[2020-03-03] MEDS: CEFEPIME/NS 2 GM/100 ML 2 GM/100 ML BAG IV SCH ×3 (06:12→21:21)
--- NOTE | 2020-03-03 09:00 | Progress Note ---
Assessment and Plan Assessment and plan: 59-year-old male patient with significant past medical history of ALS, presented to ED with worsening shortness of breath since the morning [employer]. Patient was on a trilogy machine for breathing 18/11. EMS arrived, patient had O2 sats in the 80s. EMS attempted to place patient on their CPAP machine, hillmeredith lopez patient did not tolerate. Patient was admitted to the ICU with diagnosis of acute hypoxic respiratory failure and placed on BiPAP. Patient initially tolerated but later deteriorated with respiratory status. Therefore, patient was intubated on 02/26/2020 at 1500. Patient now on mechanical ventilation in the ICU. --Acute hypoxic hypercapnic respiratory failure; Intubated on mechanical ventilation. Etiology secondary to sepsis, ALS, multifocal pneumonia (Covid negative). Patient is on CPAP patient --ALS --Elevated D-dimers; CTA chest, lower extremity venous Doppler both are negative Lovenox DVT prophylaxis --Bilateral pneumonia; probably community-acquired Versus atypical, empiric antibiotics Rocephin and Zithromax Cultures, check pro calcitonin --Sepsis secondary to pneumonia Leukocytosis, tachycardia, pneumonia on chest x-ray --Elevated troponin; Serial cardiac enzymes, serial EKGs Echocardiogram, cardiology consult if needed --Hypokalemia; replaced with KCl Monitor levels --Hyponatremia; IV fluids Closely monitor electrolytes --DVT prophylaxis; Lovenox Admit to ICU for close observation 02/25/2020. CTA of the chest reveals no PE but does illustrate the bilateral pneumonia. Doppler ultrasound also negative for DVT. Blood cultures are pending. Await COVID-19 testing. Patient currently requiring BiPAP IPAP 24/EPAP 6 with FiO2 of 25%. Continue O2 and BiPAP as clinically indicated. ID and pulmonary consulted. 02/26/2020. Blood cultures are negative x48 hours and Covid testing negative as well. Continue antibiotics per ID recommendations for community-acquired bilateral pneumonia. Cardiology consultation for elevated troponin. Check echocardiogram. 02/27/2020. Events of yesterday noted with asystole following V. fib arrest. Patient currently on AC mode rate 20, tidal volume 400, FiO2 50% and a PEEP of 6. Follow-up echocardiogram for elevated troponin. Cardiology suspects NSTEMI Type 2 in the setting of acute resp failure. Chest CTA and BLE Dopplers neg. we will discontinue Decadron given the Covid PCR is negative. 02/28/2020. I spoke with the sister Felisa Eli who is the power of compliance attorney regarding advanced directives and she instructed me that she would like to continue with aggressive care at this time. I informed her of the guarded prognosis and high mortality/morbidity and she voiced understanding. Patient currently with AC mode ventilation rate 18, tidal volume 400, FiO2 40% and a PEEP of 6. Continue antibiotics for pneumonia. ID previously consulted. Also consult neurology with regards to ALS. 02/29/2020; patient is intubated and on CPAP patient is alert and oriented. Patient has ALS. Dr. Álvarez spoke with his sister and she wants aggressive care. Continue antibiotics for pneumonia. Neurology consulted for ALS. Prognosis poor 03/01/2020; patient is intubated and on CPAP, patient is alert and oriented. I spoke with his 2 sisters about the management plan. 03/02/2020; patient is intubated and on CPAP. Patient was alert and oriented. I spoke with Dr. mohr and he thinks patient may need mechanical ventilation, likely his disease progressed. Dr. Flowers did debridement this morning. The high probability of a clinically significant, sudden or life threatening deterioration of the [cardiac and respiratory] system(s) required my full and direct attention, intervention and personal management. The aggregate critical care time was [34] minutes. This time is in addition to time spent performing reported procedures but includes the following: [x] Data Review and interpretation [x] Patient assessment and monitoring of vital signs [x] Documentation [x] Medication orders and management History Interval history: Patient was seen and evaluated this morning Patient is intubated, CPAP Patient was alert and oriented, he said he understand plan nodding his head Hospitalist Physical - Physical exam Narrative exam: Not in cardiopulmonary distress. The patient appeared well nourished and normally developed. Vital signs as documented. Head exam is unremarkable. No scleral icterus . Neck is without jugular venous distension, thyromegaly, or carotid bruits. Lungs are clear to auscultation. Cardiac exam reveals regular rate and Rhythm. Abdominal exam reveals normal bowel sounds, nontender, no organomegaly. Extremities are nonedematous and both femoral and pedal pulses are normal. 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 - Constitutional Vitals: Temp Pulse Resp BP Pulse Ox 99.7 F H 95 H 15 131/88 98 03/03/20 08:00 03/03/20 07:51 03/03/20 07:51 03/03/20 07:51 03/03/20 07:51 General appearance: Present: mild distress, other (Intubated on mechanical ventilation) HEART Score - HEART Score Troponin: Troponin T 0.034 ng/mL (0.00-0.029) H D 02/24/20 19:35 Results - Labs CBC & Chem 7: 03/02/20 09:47 03/02/20 09:47 Labs: Laboratory Last Values WBC 23.6 K/mm3 (4.5-11.0) H 03/02/20 09:47 RBC 4.75 M/mm3 (3.65-5.03) 03/02/20 09:47 Hgb 13.2 gm/dl (11.8-15.2) 03/02/20 09:47 Hct 40.1 % (35.5-45.6) 03/02/20 09:47 MCV 85 fl (84-94) 03/02/20 09:47 MCH 28 pg (28-32) 03/02/20 09:47 MCHC 33 % (32-34) 03/02/20 09:47 RDW 15.3 % (13.2-15.2) H 03/02/20 09:47 Plt Count 494 K/mm3 (140-440) H 03/02/20 09:47 Lymph % (Auto) 8.7 % (13.4-35.0) L 02/28/20 04:15 [place] % (Auto) 6.6 % (0.0-7.3) 02/28/20 04:15 Eos % (Auto) 0.0 % (0.0-4.3) 02/28/20 04:15 Baso % (Auto) 0.1 % (0.0-1.8) 02/28/20 04:15 Lymph # (Auto) 1.6 K/mm3 (1.2-5.4) 02/28/20 04:15 [place] # (Auto) 1.2 K/mm3 (0.0-0.8) H 02/28/20 04:15 Eos # (Auto) 0.0 K/mm3 (0.0-0.4) 02/28/20 04:15 Baso # (Auto) 0.0 K/mm3 (0.0-0.1) 02/28/20 04:15 Add Manual Diff Complete 03/02/20 09:47 Total Counted 100 03/02/20 09:47 Seg Neutrophils % 84.6 % (40.0-70.0) H 02/28/20 04:15 Seg Neuts % (Manual) 85.0 % (40.0-70.0) H 03/02/20 09:47 Band Neutrophils % 0 % 03/02/20 09:47 Lymphocytes % (Manual) 6.0 % (13.4-35.0) L 03/02/20 09:47 Reactive Lymphs % (Man) 1.0 % 03/02/20 09:47 Monocytes % (Manual) 7.0 % (0.0-7.3) 03/02/20 09:47 Eosinophils % (Manual) 0 % (0.0-4.3) 03/02/20 09:47 Basophils % (Manual) 0 % (0.0-1.8) 03/02/20 09:47 Metamyelocytes % 1.0 % 03/02/20 09:47 Myelocytes % 0 % 03/02/20 09:47 Promyelocytes % 0 % 03/02/20 09:47 Blast Cells % 0 % 03/02/20 09:47 Nucleated RBC % Not Reportable 03/02/20 09:47 Seg Neutrophils # 15.9 K/mm3 (1.8-7.7) H 02/28/20 04:15 Seg Neutrophils # Man 20.1 K/mm3 (1.8-7.7) H 03/02/20 09:47 Band Neutrophils # 0.0 K/mm3 03/02/20 09:47 Lymphocytes # (Manual) 1.4 K/mm3 (1.2-5.4) 03/02/20 09:47 Abs React Lymphs (Man) 0.2 K/mm3 03/02/20 09:47 Monocytes # (Manual) 1.7 K/mm3 (0.0-0.8) H 03/02/20 09:47 Eosinophils # (Manual) 0.0 K/mm3 (0.0-0.4) 03/02/20 09:47 Basophils # (Manual) 0.0 K/mm3 (0.0-0.1) 03/02/20 09:47 Metamyelocytes # 0.2 K/mm3 03/02/20 09:47 Myelocytes # 0.0 K/mm3 03/02/20 09:47 Promyelocytes # 0.0 K/mm3 03/02/20 09:47 Blast Cells # 0.0 K/mm3 03/02/20 09:47 WBC Morphology Not Reportable 03/02/20 09:47 Hypersegmented Neuts Not Reportable 03/02/20 09:47 Hyposegmented Neuts Not Reportable 03/02/20 09:47 Hypogranular Neuts Not Reportable 03/02/20 09:47 Smudge Cells Not Reportable 03/02/20 09:47 Toxic Granulation Not Reportable 03/02/20 09:47 Toxic Vacuolation Not Reportable 03/02/20 09:47 Dohle Bodies Not Reportable 03/02/20 09:47 Pelger-Huet Anomaly Not Reportable 03/02/20 09:47 Robert Rods Not Reportable 03/02/20 09:47 Platelet Estimate Consistent w auto 03/02/20 09:47 Clumped Platelets Not Reportable 03/02/20 09:47 Plt Clumps, EDTA Not Reportable 03/02/20 09:47 Large Platelets Not Reportable 03/02/20 09:47 Giant Platelets Not Reportable 03/02/20 09:47 Platelet Satelliting Not Reportable 03/02/20 09:47 Plt Morphology Comment Not Reportable 03/02/20 09:47 RBC Morphology Normal 03/02/20 09:47 Dimorphic RBCs Not Reportable 03/02/20 09:47 Polychromasia Not Reportable 03/02/20 09:47 Hypochromasia Not Reportable 03/02/20 09:47 Poikilocytosis Not Reportable 03/02/20 09:47 Anisocytosis Not Reportable 03/02/20 09:47 Microcytosis Not Reportable 03/02/20 09:47 Macrocytosis Not Reportable 03/02/20 09:47 Spherocytes Not Reportable 03/02/20 09:47 Pappenheimer Bodies Not Reportable 03/02/20 09:47 Sickle Cells Not Reportable 03/02/20 09:47 Target Cells Not Reportable 03/02/20 09:47 Tear Drop Cells Not Reportable 03/02/20 09:47 Ovalocytes Not Reportable 03/02/20 09:47 Helmet Cells Not Reportable 03/02/20 09:47 Gregory-Caspian Bodies Not Reportable 03/02/20 09:47 [place] Rings Not Reportable 03/02/20 09:47 [place] Cells Not Reportable 03/02/20 09:47 Bite Cells Not Reportable 03/02/20 09:47 Crenated Cell Not Reportable 03/02/20 09:47 Elliptocytes Not Reportable 03/02/20 09:47 Acanthocytes (Spur) Not Reportable 03/02/20 09:47 Rouleaux Not Reportable 03/02/20 09:47 Hemoglobin C Crystals Not Reportable 03/02/20 09:47 Schistocytes Not Reportable 03/02/20 09:47 Malaria parasites Not Reportable 03/02/20 09:47 [place] Bodies Not Reportable 03/02/20 09:47 Hem Pathologist Commnt No 03/02/20 09:47 PT 15.6 Sec. (12.2-14.9) H 02/24/20 09:19 INR 1.21 (0.87-1.13) H 02/24/20 09:19 APTT 25.4 Sec. (24.2-36.6) 02/24/20 09:19 D-Dimer 1311.96 ng/mlDDU (0-234) H 02/24/20 09:19 ABG pH 7.492 pH Units (7.350-7.450) H 03/01/20 03:45 POC ABG pCO2 54.3 mmHg (32.0-48.0) H 02/29/20 05:14 ABG pCO2 43.1 mm Hg 03/01/20 03:45 POC ABG pO2 124.8 mmHg (83-108) H 02/29/20 05:14 ABG pO2 157.1 mm Hg (80.0-90.0) H 03/01/20 03:45 POC ABG HCO3 35.3 02/29/20 05:14 ABG HCO3 32.3 mmol/L (20.0-26.0) H 03/01/20 03:45 ABG O2 Saturation 99.0 % (95.0-99.0) 03/01/20 03:45 ABG O2 Content 18.3 (0.0-44) 03/01/20 03:45 POC ABG Base Excess 9.1 02/29/20 05:14 ABG Base Excess 8.1 mmol/L (-2.0-3.0) H 03/01/20 03:45 ABG Hemoglobin 13.2 gm/dl (14.0-18.0) L 03/01/20 03:45 ABG Oxyhemoglobin 99.2 (94-98) H 02/26/20 17:00 ABG Carboxyhemoglobin 1.2 % (0.0-5.0) 03/01/20 03:45 ABG Methemoglobin 0.7 % (0.0-1.5) 03/01/20 03:45 ABG Sodium 144.3 mmol/L (136.0-145.0) 02/29/20 05:14 ABG Potassium 4.0 mmol/L (3.40-4.50) 02/29/20 05:14 ABG Chloride 103.0 mmol/L (98-107) 02/29/20 05:14 ABG Glucose 185 mg/dL (65-95) H 02/29/20 05:14 Oxyhemoglobin 97.1 % (95.0-99.0) 03/01/20 03:45 Carboxyhemoglobin 0.4 (0.5-1.5) L 02/26/20 17:00 FiO2 40 % 03/01/20 03:45 Sodium 140 mmol/L (137-145) 03/02/20 09:47 Potassium 3.8 mmol/L (3.6-5.0) 03/02/20 09:47 Chloride 101.8 mmol/L (98-107) 03/02/20 09:47 Carbon Dioxide 29 mmol/L (22-30) 03/02/20 09:47 Anion Gap 13 mmol/L 03/02/20 09:47 BUN 15 mg/dL (9-20) 03/02/20 09:47 Creatinine < 0.2 mg/dL (0.8-1.3) L 03/02/20 09:47 Estimated GFR > 60 ml/min 03/02/20 09:47 BUN/Creatinine Ratio 75 % 03/02/20 09:47 Glucose 177 mg/dL (75-100) H 03/02/20 09:47 POC Glucose 120 mg/dL (70-105) H 03/02/20 06:13 Lactic Acid 1.00 mmol/L (0.7-2.0) 02/24/20 12:07 Calcium 8.5 mg/dL (8.4-10.2) 03/02/20 09:47 Magnesium 2.30 mg/dL (1.7-2.3) 02/25/20 04:00 Ferritin 1715.0 ng/mL (30.0-300.0) H 02/24/20 10:01 Total Bilirubin 0.80 mg/dL (0.1-1.2) 02/25/20 04:00 AST 17 units/L (5-40) 02/25/20 04:00 ALT 21 units/L (7-56) 02/25/20 04:00 Alkaline Phosphatase 105 units/L (35-129) 02/25/20 04:00 Lactate Dehydrogenase 303 units/L (91-180) H 02/24/20 09:19 Total Creatine Kinase 101 units/L (55-170) 02/24/20 19:35 CK-MB (CK-2) 3.5 ng/mL (0.0-4.0) 02/24/20 19:35 CK-MB (CK-2) Rel Index 3.4 (0-4) 02/24/20 19:35 Troponin T 0.034 ng/mL (0.00-0.029) H D 02/24/20 19:35 C-Reactive Protein 4.70 mg/dL (0.00-1.30) H 02/28/20 11:05 NT-Pro-B Natriuret Pep 48.30 pg/mL (0-900) 02/24/20 09:19 Total Protein 6.5 g/dL (6.3-8.2) 02/25/20 04:00 Albumin 3.5 g/dL (3.9-5) L 02/25/20 04:00 Albumin/Globulin Ratio 1.2 % 02/25/20 04:00 Prealbumin 0.090 g/L (0.200-0.400) L 02/28/20 12:54 Triglycerides 60 mg/dL (2-149) 02/24/20 09:19 Cholesterol 104 mg/dL (50-199) 02/24/20 09:19 LDL Cholesterol Direct 41 mg/dL (50-130) L 02/24/20 09:19 HDL Cholesterol 45 mg/dL (40-59) 02/24/20 09:19 Cholesterol/HDL Ratio 2.31 % 02/24/20 09:19 Procalcitonin 1.68 ng/mL (<0.15) 02/28/20 14:51 Arterial Blood Glucose 185 mg/dL (65-95) H 02/29/20 05:14 Arterial Blood Ionized Calcium 4.6 mg/dL (4.6-5.3) 02/29/20 05:14 Coronavirus (PCR) Negative (Negative) 02/25/20 09:03 - Diagnostic Impressions Diagnostic Impressions: Echocardiogram 02/26/20 10:41 Transthoracic Echocardiogram Indication: Elevated Trop BP: 116/75 HR: 85 Conclusions *Global left ventricular wall motion and contractility are within normal limits. *The estimated ejection fraction is 50-55%. *Abnormal left ventricular diastolic filling is observed, consistent with impaired relaxation. *There is no pericardial effusion. Findings Left Ventricle: The left ventricular chamber size is normal. Global left ventricular wall motion and contractility are within normal limits. Global left ventricular systolic function is normal. The estimated ejection fraction is 50-55%. Abnormal left ventricular diastolic filling is observed, consistent with impaired relaxation. Left Atrium: The left atrial chamber size is normal. Right Ventricle: The right ventricular cavity size is normal. Right Atrium: The right atrial cavity size is normal. Aortic Valve: Mild aortic leaflet calcification is visualized. There is no evidence of aortic regurgitation. Mitral Valve: The mitral valve leaflets are mildly thickened. There is no evidence of mitral regurgitation. Tricuspid Valve: The tricuspid valve leaflets are normal. There is trace tricuspid regurgitation. The right ventricular systolic pressure is calculated at 29 mmHg. Pulmonic Valve: The pulmonic valve is not well visualized. Pericardium: There is no pericardial effusion. Aorta: The aorta appears normal. Venous: The inferior vena cava is dilated. There is less than 50% respiratory change in the inferior vena cava dimension. Measurements Chambers 2D Name Value Normal Range IVSd (2D) 0.97 cm (0.6 - 1.1) LVPWd (2D) 0.93 cm (0.6 - 1.1) LVIDd (2D) 4 cm (3.7 - 5.6) LVIDs (2D) 2.73 cm (2 - 3.8) LV FS (2D) 31.67 % - EF Teichholz (2D) 60.23 % - Ao root diameter (2D) 3.51 cm (2 - 3.7) Volumes/Mass Name Value Normal Range LA ESV SP 4CH (A/L) 8.43 ml - LA ESV SP 2CH (A/L) 18.89 ml - LA ESV BP (A/L) 13.02 ml - LA ESV BP (A/L) index 8.8 ml/m2 - LA ESV SP 4CH (MOD) 7.22 ml - LA ESV SP 2CH (MOD) 18.15 ml - LA ESV BP (MOD) 11.47 ml - LA ESV BP (MOD) index 7.75 ml/m2 - Diastolic/Systolic Function Name Value Normal Range MV E-wave Vmax 0.51 m/sec - MV deceleration time 180.22 msec - MV A-wave Vmax 0.62 m/sec - MV E:A ratio 0.82 ratio - Aortic Valve Name Value Normal Range AV Vmax 1.17 m/sec - AV VTI 19.71 cm - AV peak gradient 5.44 mmHg - AV mean gradient 3.38 mmHg - LVOT diameter 2.26 cm - LVOT Vmax 0.89 m/sec - LVOT VTI 13.72 cm - LVOT peak gradient 3.17 mmHg - LVOT mean gradient 1.67 mmHg - SV LVOT 55.03 ml - SHARAD (continuity Vmax) 3.06 cm2 - SHARAD (continuity VTI) 2.79 cm2 - Tricuspid Valve Name Value Normal Range TR Vmax 2.3 m/sec - TR peak gradient 21 mmHg - RAP 8 mmHg - RVSP 29 mmHg - IVC diameter 2.59 cm (1.2 - 2.3) Pulmonic Valve/Qp:Qs Name Value Normal Range PV acceleration time 68.51 msec - Reardon/IV: Voiding Method Condom Catheter IV Catheter Type [Left Wrist] Peripheral IV IV Catheter Type [Right INT / Saline Lock Forearm] IV Catheter Type [Right Triple Lumen Cath Internal Jugular] IV Catheter Type [Left Forearm INT / Saline Lock ] IV Catheter Type [Right Triple Lumen Cath Femoral] IV Catheter Type [Right INT / Saline Lock Antecubital] Active Medications - Current Medications Current Medications: Generic Name Dose Route Start Last Admin Trade Name Freq PRN Reason Stop Dose Admin Acetaminophen 650 mg 02/24/20 15:13 02/28/20 09:18 Tylenol PO 650 mg Q4H PRN Administration Pain, Mild (1-3) Albuterol 2.5 mg 02/24/20 15:13 Proventil IH Q4HRT PRN Shortness Of Breath Lipase/Protease/Amylase 1 each 02/26/20 11:[address] 10,500 Unit FEEDTUBE PRN PRN For Clogged Feeding Tube Enoxaparin Sodium 40 mg 02/24/20 22:00 03/02/20 22:06 Enoxaparin SUB-Q 40 mg QDAY@2200 ALISA Administration Protocol Dopamine HCl/Dextrose 800 mg in 250 mls @ 3.338 mls/hr 02/26/20 16:00 17:11 Intropin Drip 800 Mg/D5w 250 Ml IV 0 mcg/kg/min TITR ALISA 0 mls/hr Titration Protocol 2 MCG/KG/MIN Cefepime HCl 2 gm in 100 mls @ 200 mls/hr 03/01/20 14:00 03/03/20 06:12 Cefepime/Ns 2 Gm/100 Ml IV 200 mls/hr Q8HR ALISA Administration Protocol Vancomycin HCl 1 gm in 250 mls @ 166.667 mls/hr 03/02/20 04:00 03/03/20 04:26 Vancomycin/Ns 1 Gm/250 Ml IV 166.667 mls/hr Q12H ALISA Administration Lansoprazole 30 mg 02/28/20 10:00 03/02/20 10:48 Prevacid Solutab FEEDTUBE 30 mg QDAY ALISA Administration Metoprolol Tartrate 12.5 mg 02/24/20 22:00 03/02/20 22:05 Metoprolol PO 12.5 mg BID ALISA Administration Morphine Sulfate 2 mg 02/29/20 16:42 03/02/20 19:33 Morphine IV 2 mg Q4H PRN Administration Pain, Moderate (4-6) Simple Syrup 15 ml 02/26/20 11:16 Simple Syrup FEEDTUBE PRN PRN Hypoglycemia Simple Syrup 30 ml 02/26/20 11:16 Simple Syrup FEEDTUBE PRN PRN Hypoglycemia Sodium Bicarbonate 325 mg 02/26/20 11:16 Sodium Bicarbonate FEEDTUBE PRN PRN For Clogged Feeding Tube Nutrition/Malnutrition Assess - Dietary Evaluation Nutrition/Malnutrition Findings: Nutrition Notes Start: 02/26/20 10:40 Freq: Status: Active Protocol: Document 03/02/20 12:03 VALDO (Rec: 03/02/20 13:37 VALDO [id number]) Co-Sign 03/02/20 12:03 MK Nutrition Notes Initial or Follow up Reassessment Current Diagnosis Decubitus(Pressure Ulcer), Sepsis,Respiratory Failure Other Pertinent Diagnosis COVID-19 (-), ALS, pneumonia, Hip/buttock PU Current Diet Vital AF 1.2 at 75ml/hr (goal rate) Labs/Tests Na 146 Pertinent Medications Cephalosporin Vancomycin Height 6 ft Weight 64.9 kg Usual Body Weight 65.91 kg [place] Body Weight (kg) 80.90 BMI 19.4 Weight Status Underweight Subjective/Other Information F/u TF tolerance and Will. Delivered Will to RN. Pt tolerating TF at goal rate. Percent of energy/protein needs met: 95%/100% Burn Absent Trauma Absent GI Symptoms None Skin Integrity/Comment Pressure Ulcer Stage 2 Current % PO Negligible Minimum of two criteria Yes Body Fat Depletion Mild depletion (non-severe) Muscle Mass Mild Depletion (non-severe) Reduced Administrative Dietitian Strength Measurably Reduced (severe) #3 Nutrition Diagnosis Malnutrition Diagnosis Progress(for reassessment Continues documentation) #2 Nutrition Diagnosis Inadequate oral intake Diagnosis Progress(for reassessment Continues documentation) #1 Nutrition Diagnosis Increased nutrient needs ( specify in comment below) Diagnosis Progress(for reassessment Continues documentation) Is patient on ventilator? Yes Is Patient Ambulatory and/or Out of Bed No [facility] 1807.284 Kcal/Kg value to use for calculation 35 Approximate Energy Requirements Using 2272 kcal/Kg Calculation Used for Recommendations Kcal/kg Additional Notes Protein 1.2-1.5-134g Fluid: 1ml/kcal Nutrition Intervention Change Diet Order: Continue TF Nutrition Support: Vital AF 1.2 at 75ml/hr. Flush 200ml q4h Kcal 2,160 Protein (gm) 135 Fluid (mL) 1,460 Add Supplement/Snack (indicate name/kcal Will BID /protein ) Provides kCal: 190 Provides Protein (gm) 5 Goal #1 Meet at least 80% of energy and protein needs via TF Goal #2 Wound healing Anticipated Discharge Needs: Unable to determine at this time Follow-Up By: 03/08/20 Additional Comments F/u stable TF and Will adm
[2020-03-03] MEDS: LANSOPRAZOLE 30 MG SOLUTAB FEEDTUBE SCH (11:01)
[2020-03-03] MEDS: METOPROLOL TARTRATE 25 MG TAB PO SCH ×2 (11:01→21:21)
--- NOTE | 2020-03-03 13:13 | Progress Note ---
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 Respiratory Failure Severe Sepsis with Shock Bilateral Pneumonia (Possible aspiration) History of ALS on Trilogy Oropharyngeal Dysphagia PUI-COVID Acute toxic metabolic encephalopathy Elevated D-dimer Elevated troponin possibly type 2 ischemia - begin Scopolamine patch for secretion control - continue Daily SAT and SBT assessment as tolerated - get ABG at 9pm tonight if still on PSV 10/6 - continue to rest on full support qhs - still plan for trial of extubation if passes SBT soon - continue care as below otherwise; - wean supplemental oxygen for target O2 sat's > 92% acutely - bronchodilators with pulmonary hygiene per RT - VAP bundle addressed - continue lung protective strategies - continue bronchodilators with pulmonary hygiene per RT - wean per pulmonary driven protocols otherwise - sedation prn for target RASS 0 to -1 - empiric antiinfectives per ID rec's (Rocephin and Zithromax) - COVID-19 isolation (Airborne & Contact) - empiric Dexamethasonme - follow COVID-19 test results - trend inflammatory markers to aid clinical decision making - enteral nutrition at goal rate as tolerated - Aspiration precautions - accuchecks with glycemic control per SSI (While critically ill target blood glucose of 140-180 mg/dL; avoid hypoglycemia) - avoid nephrotoxins, renally dose all medications - avoid benzodiazepine's, reduce the possibility of delirium - prn analgesia per CPOT score - Maintenance of sleep-wake cycle, avoid delirium - aspiration precautions - G.I. & VTE prophylaxis - PT/OT/ROM exercises - mobility protocols for pressure ulcer prophylaxis - Monitor hemodynamics closely - continue other care per attending / other consultants - discharge planning ongoing concurrently .... Re-evaluate in am & prn CONDITION: CRITICAL PROGNOSIS: GUARDED CODE STATUS: FULL CODE The high probability of a clinically significant, sudden or life-threatening deterioration of the [respiratory, cardiovascular & neurologic] system(s) required my full and direct attention, intervention and personal management. The aggregate critical care time was [33] minutes without overlap. Time includes spent on; [x] Data Review and interpretation [x] Patient assessment and monitoring of vital signs [x] Documentation [x] Medication orders and management Subjective Date of service: 03/03/20 Principal diagnosis: Ac on Ch Hypercapnic & hypoxemic Resp Failure; Severe Se psis; Jamar PNA; ALS Interval history: Patient is seen today for: Acute on Chronic Hypercapnic & hypoxemic Respiratory Failure; Severe Sepsis with Shock; Bilateral Pneumonia (Possible aspiration); History of ALS on Trilogy; PUI-COVID; Acute toxic metabolic encephalopathy Seen and examined at bedside; 24hour events reviewed; nursing and respiratory care staff consulted; no adverse overnight events reported to me; resting in bed; remains on MVS; tired out before 9pm ABG yesterday and gas not done; wound care ongoing; oropharyngeal secretions copious Objective Vital Signs - 12hr 03/03/20 03/03/20 03/03/20 02:00 02:45 03:00 Temperature Pulse Rate 96 H 96 H 102 H Pulse Rate [ 95 H From Monitor] Respiratory 21 20 21 Rate Blood Pressure 144/94 148/88 O2 Sat by Pulse 96 98 96 Oximetry 03/03/20 03/03/20 03/03/20 03:57 04:00 05:00 Temperature 98.3 F Pulse Rate 107 H 111 H 97 H Pulse Rate [ From Monitor] Respiratory 25 H 18 Rate Blood Pressure 139/88 151/93 133/90 O2 Sat by Pulse 96 96 96 Oximetry 03/03/20 03/03/20 03/03/20 06:00 07:00 07:48 Temperature Pulse Rate 104 H 101 H 106 H Pulse Rate [ From Monitor] Respiratory 18 18 Rate Blood Pressure 127/84 123/84 131/88 O2 Sat by Pulse 96 98 100 Oximetry 03/03/20 03/03/20 03/03/20 07:51 08:00 09:00 Temperature 99.7 F H Pulse Rate 95 H 94 H 111 H Pulse Rate [ From Monitor] Respiratory 15 18 13 Rate Blood Pressure 131/88 136/91 130/89 O2 Sat by Pulse 98 97 97 Oximetry 03/03/20 03/03/20 11:01 11:36 Temperature Pulse Rate 101 H 91 H Pulse Rate [ From Monitor] Respiratory 17 Rate Blood Pressure 127/84 131/90 O2 Sat by Pulse 96 Oximetry Constitutional: appears uncomfortable, other (thin middle aged male with mildly increased respiratory effort at rest on MVS) Eyes: non-icteric ENT: oropharynx moist, other (ETT 23 cm LYNETTE) Neck: supple, no lymphadenopathy, no JVD Effort: mildly labored Ascultation: Bilateral: diminished breath sounds, rhonchi (scant in bases) Percussion: Bilateral: not dull Cardiovascular: regular rate and rhythm, other (S1,S2, no murmurs) Gastrointestinal: normoactive bowel sounds, soft, non-tender, non-distended Integumentary: normal, decubitus ulcer (sacral / gluteal) Extremities: no cyanosis, no edema, pulses normal, other (atrophic looking limbs) Neurologic: pupils equal and round, other (motor strength in extremities 1-2/5) Psychiatric: mood appropriate, affect normal CBC and BMP: 03/02/20 09:47 03/02/20 09:47 ABG, PT/INR, D-dimer: ABG ABG pH 7.434 (7.320-7.450) 03/03/20 10:21 POC ABG pCO2 46.9 mmHg (32.0-48.0) 03/03/20 10:21 ABG pCO2 43.1 mm Hg 03/01/20 03:45 POC ABG pO2 83.0 mmHg (83-108) 03/03/20 10:21 ABG pO2 157.1 mm Hg (80.0-90.0) H 03/01/20 03:45 POC ABG HCO3 30.7 03/03/20 10:21 ABG O2 Saturation 99.0 % (95.0-99.0) 03/01/20 03:45 PT/INR, D-dimer PT 15.6 Sec. (12.2-14.9) H 02/24/20 09:19 INR 1.21 (0.87-1.13) H 02/24/20 09:19 D-Dimer 1311.96 ng/mlDDU (0-234) H 02/24/20 09:19 Abnormal lab findings: Abnormal Labs 02/24/20 02/24/20 02/24/20 09:19 09:19 09:19 WBC 20.2 H RBC 5.05 H MCV MCH RDW 15.3 H Plt Count Lymph % (Auto) Holt # (Auto) Seg Neutrophils % Seg Neuts % (Manual) 86.0 H Lymphocytes % (Manual) 1.0 L Seg Neutrophils # Seg Neutrophils # Man 17.4 H Lymphocytes # (Manual) 0.2 L Monocytes # (Manual) Eosinophils # (Manual) PT 15.6 H INR 1.21 H D-Dimer 1311.96 H ABG pH POC ABG pCO2 POC ABG pO2 ABG pO2 ABG HCO3 ABG O2 Saturation ABG Base Excess ABG Hemoglobin ABG Oxyhemoglobin ABG Potassium ABG Glucose Oxyhemoglobin Carboxyhemoglobin Sodium 135 L Potassium 3.2 L Chloride 92.2 L Carbon Dioxide BUN 6 L Creatinine < 0.2 L Glucose 124 H POC Glucose Ferritin Total Bilirubin 2.30 H Alkaline Phosphatase 132 H Lactate Dehydrogenase Troponin T 0.080 H C-Reactive Protein Albumin 3.6 L Prealbumin LDL Cholesterol Direct 41 L Arterial Blood Glucose Arterial Blood Ionized Calcium 02/24/20 02/24/20 02/24/20 09:19 09:58 10:01 WBC RBC MCV MCH RDW Plt Count Lymph % (Auto) Holt # (Auto) Seg Neutrophils % Seg Neuts % (Manual) Lymphocytes % (Manual) Seg Neutrophils # Seg Neutrophils # Man Lymphocytes # (Manual) Monocytes # (Manual) Eosinophils # (Manual) PT INR D-Dimer ABG pH 7.176 L* POC ABG pCO2 POC ABG pO2 ABG pO2 91.2 H ABG HCO3 ABG O2 Saturation ABG Base Excess -4.6 L ABG Hemoglobin ABG Oxyhemoglobin ABG Potassium ABG Glucose Oxyhemoglobin 92.6 L Carboxyhemoglobin Sodium Potassium Chloride Carbon Dioxide BUN Creatinine Glucose POC Glucose Ferritin 1715.0 H Total Bilirubin Alkaline Phosphatase Lactate Dehydrogenase 303 H Troponin T C-Reactive Protein 26.10 H Albumin Prealbumin LDL Cholesterol Direct Arterial Blood Glucose Arterial Blood Ionized Calcium 02/24/20 02/24/20 02/24/20 11:52 13:45 19:35 WBC RBC MCV MCH RDW Plt Count Lymph % (Auto) Holt # (Auto) Seg Neutrophils % Seg Neuts % (Manual) Lymphocytes % (Manual) Seg Neutrophils # Seg Neutrophils # Man Lymphocytes # (Manual) Monocytes # (Manual) Eosinophils # (Manual) PT INR D-Dimer ABG pH 7.051 L* 7.300 L POC ABG pCO2 POC ABG pO2 ABG pO2 94.7 H 75.1 L ABG HCO3 18.0 L ABG O2 Saturation 93.5 L ABG Base Excess -6.8 L -7.8 L ABG Hemoglobin 13.2 L 11.9 L ABG Oxyhemoglobin ABG Potassium ABG Glucose Oxyhemoglobin 91.0 L 92.7 L Carboxyhemoglobin Sodium Potassium Chloride Carbon Dioxide BUN Creatinine Glucose POC Glucose Ferritin Total Bilirubin Alkaline Phosphatase Lactate Dehydrogenase Troponin T 0.034 H D C-Reactive Protein Albumin Prealbumin LDL Cholesterol Direct Arterial Blood Glucose Arterial Blood Ionized Calcium 02/25/20 02/25/20 02/25/20 04:00 04:00 12:26 WBC 22.9 H RBC MCV 83 L MCH 27 L RDW Plt Count 468 H Lymph % (Auto) Holt # (Auto) Seg Neutrophils % Seg Neuts % (Manual) 89.0 H Lymphocytes % (Manual) 7.0 L Seg Neutrophils # Seg Neutrophils # Man 20.4 H Lymphocytes # (Manual) Monocytes # (Manual) Eosinophils # (Manual) PT INR D-Dimer ABG pH POC ABG pCO2 POC ABG pO2 ABG pO2 ABG HCO3 ABG O2 Saturation ABG Base Excess ABG Hemoglobin ABG Oxyhemoglobin ABG Potassium 2.6 L ABG Glucose 142 H Oxyhemoglobin Carboxyhemoglobin Sodium Potassium 3.2 L Chloride Carbon Dioxide 18 L BUN Creatinine 0.2 L Glucose 114 H POC Glucose Ferritin Total Bilirubin Alkaline Phosphatase Lactate Dehydrogenase Troponin T C-Reactive Protein Albumin 3.5 L Prealbumin LDL Cholesterol Direct Arterial Blood Glucose 142 H Arterial Blood Ionized Calcium 02/26/20 02/26/20 02/26/20 15:58 17:00 23:43 WBC RBC MCV MCH RDW Plt Count Lymph % (Auto) Holt # (Auto) Seg Neutrophils % Seg Neuts % (Manual) Lymphocytes % (Manual) Seg Neutrophils # Seg Neutrophils # Man Lymphocytes # (Manual) Monocytes # (Manual) Eosinophils # (Manual) PT INR D-Dimer ABG pH 7.502 H POC ABG pCO2 POC ABG pO2 213.6 H ABG pO2 ABG HCO3 ABG O2 Saturation ABG Base Excess ABG Hemoglobin ABG Oxyhemoglobin 99.2 H ABG Potassium 2.9 L ABG Glucose 160 H Oxyhemoglobin Carboxyhemoglobin 0.4 L Sodium Potassium Chloride Carbon Dioxide BUN Creatinine Glucose POC Glucose 189 H 120 H Ferritin Total Bilirubin Alkaline Phosphatase Lactate Dehydrogenase Troponin T C-Reactive Protein Albumin Prealbumin LDL Cholesterol Direct Arterial Blood Glucose 160 H Arterial Blood Ionized Calcium 4.5 L 02/27/20 02/27/20 02/27/20 05:00 07:04 17:45 WBC RBC MCV MCH RDW Plt Count Lymph % (Auto) Holt # (Auto) Seg Neutrophils % Seg Neuts % (Manual) Lymphocytes % (Manual) Seg Neutrophils # Seg Neutrophils # Man Lymphocytes # (Manual) Monocytes # (Manual) Eosinophils # (Manual) PT INR D-Dimer ABG pH 7.524 H POC ABG pCO2 POC ABG pO2 ABG pO2 ABG HCO3 ABG O2 Saturation ABG Base Excess ABG Hemoglobin ABG Oxyhemoglobin ABG Potassium 3.0 L ABG Glucose 143 H Oxyhemoglobin Carboxyhemoglobin Sodium Potassium Chloride Carbon Dioxide BUN Creatinine Glucose POC Glucose 154 H 175 H Ferritin Total Bilirubin Alkaline Phosphatase Lactate Dehydrogenase Troponin T C-Reactive Protein Albumin Prealbumin LDL Cholesterol Direct Arterial Blood Glucose 143 H Arterial Blood Ionized Calcium 02/27/20 02/28/20 02/28/20 Unknown 00:21 04:15 WBC 18.7 H RBC MCV MCH RDW Plt Count Lymph % (Auto) 8.7 L Holt # (Auto) 1.2 H Seg Neutrophils % 84.6 H Seg Neuts % (Manual) Lymphocytes % (Manual) Seg Neutrophils # 15.9 H Seg Neutrophils # Man Lymphocytes # (Manual) Monocytes # (Manual) Eosinophils # (Manual) PT INR D-Dimer ABG pH POC ABG pCO2 POC ABG pO2 ABG pO2 ABG HCO3 ABG O2 Saturation ABG Base Excess ABG Hemoglobin ABG Oxyhemoglobin ABG Potassium ABG Glucose Oxyhemoglobin Carboxyhemoglobin Sodium Potassium 2.9 L* Chloride Carbon Dioxide 33 H D BUN Creatinine < 0.2 L Glucose 157 H POC Glucose 134 H Ferritin Total Bilirubin Alkaline Phosphatase Lactate Dehydrogenase Troponin T C-Reactive Protein Albumin Prealbumin LDL Cholesterol Direct Arterial Blood Glucose Arterial Blood Ionized Calcium 02/28/20 02/28/20 02/28/20 04:15 05:16 05:39 WBC RBC MCV MCH RDW Plt Count Lymph % (Auto) Holt # (Auto) Seg Neutrophils % Seg Neuts % (Manual) Lymphocytes % (Manual) Seg Neutrophils # Seg Neutrophils # Man Lymphocytes # (Manual) Monocytes # (Manual) Eosinophils # (Manual) PT INR D-Dimer ABG pH POC ABG pCO2 POC ABG pO2 ABG pO2 142.9 H ABG HCO3 34.1 H ABG O2 Saturation ABG Base Excess 8.3 H ABG Hemoglobin ABG Oxyhemoglobin ABG Potassium ABG Glucose Oxyhemoglobin Carboxyhemoglobin Sodium 151 H Potassium Chloride Carbon Dioxide 32 H BUN Creatinine 0.2 L Glucose 167 H POC Glucose 138 H Ferritin Total Bilirubin Alkaline Phosphatase Lactate Dehydrogenase Troponin T C-Reactive Protein Albumin Prealbumin LDL Cholesterol Direct Arterial Blood Glucose Arterial Blood Ionized Calcium 02/28/20 02/28/20 02/28/20 11:05 11:33 12:54 WBC RBC MCV MCH RDW Plt Count Lymph % (Auto) Holt # (Auto) Seg Neutrophils % Seg Neuts % (Manual) Lymphocytes % (Manual) Seg Neutrophils # Seg Neutrophils # Man Lymphocytes # (Manual) Monocytes # (Manual) Eosinophils # (Manual) PT INR D-Dimer ABG pH POC ABG pCO2 POC ABG pO2 ABG pO2 ABG HCO3 ABG O2 Saturation ABG Base Excess ABG Hemoglobin ABG Oxyhemoglobin ABG Potassium ABG Glucose Oxyhemoglobin Carboxyhemoglobin Sodium Potassium Chloride Carbon Dioxide BUN Creatinine Glucose POC Glucose 160 H Ferritin Total Bilirubin Alkaline Phosphatase Lactate Dehydrogenase Troponin T C-Reactive Protein 4.70 H Albumin Prealbumin 0.090 L LDL Cholesterol Direct Arterial Blood Glucose Arterial Blood Ionized Calcium 02/28/20 02/29/20 02/29/20 17:34 00:44 04:05 WBC 19.6 H RBC MCV MCH 27 L RDW 15.4 H Plt Count Lymph % (Auto) Holt # (Auto) Seg Neutrophils % Seg Neuts % (Manual) 86.0 H Lymphocytes % (Manual) 7.0 L Seg Neutrophils # Seg Neutrophils # Man 16.9 H Lymphocytes # (Manual) Monocytes # (Manual) 1.2 H Eosinophils # (Manual) PT INR D-Dimer ABG pH POC ABG pCO2 POC ABG pO2 ABG pO2 ABG HCO3 ABG O2 Saturation ABG Base Excess ABG Hemoglobin ABG Oxyhemoglobin ABG Potassium ABG Glucose Oxyhemoglobin Carboxyhemoglobin Sodium Potassium Chloride Carbon Dioxide BUN Creatinine Glucose POC Glucose 136 H 156 H Ferritin Total Bilirubin Alkaline Phosphatase Lactate Dehydrogenase Troponin T C-Reactive Protein Albumin Prealbumin LDL Cholesterol Direct Arterial Blood Glucose Arterial Blood Ionized Calcium 02/29/20 02/29/20 02/29/20 04:05 05:14 05:33 WBC RBC MCV MCH RDW Plt Count Lymph % (Auto) Holt # (Auto) Seg Neutrophils % Seg Neuts % (Manual) Lymphocytes % (Manual) Seg Neutrophils # Seg Neutrophils # Man Lymphocytes # (Manual) Monocytes # (Manual) Eosinophils # (Manual) PT INR D-Dimer ABG pH POC ABG pCO2 54.3 H POC ABG pO2 124.8 H ABG pO2 ABG HCO3 ABG O2 Saturation ABG Base Excess ABG Hemoglobin ABG Oxyhemoglobin ABG Potassium ABG Glucose 185 H Oxyhemoglobin Carboxyhemoglobin Sodium 148 H Potassium Chloride Carbon Dioxide 33 H BUN Creatinine < 0.2 L Glucose 173 H POC Glucose 152 H Ferritin Total Bilirubin Alkaline Phosphatase Lactate Dehydrogenase Troponin T C-Reactive Protein Albumin Prealbumin LDL Cholesterol Direct Arterial Blood Glucose 185 H Arterial Blood Ionized Calcium 03/01/20 03/01/20 03/01/20 00:00 03:45 04:33 WBC 23.1 H RBC MCV MCH 27 L RDW 15.3 H Plt Count Lymph % (Auto) Holt # (Auto) Seg Neutrophils % Seg Neuts % (Manual) 92.0 H Lymphocytes % (Manual) 6.0 L Seg Neutrophils # Seg Neutrophils # Man 21.3 H Lymphocytes # (Manual) Monocytes # (Manual) Eosinophils # (Manual) 0.5 H PT INR D-Dimer ABG pH 7.492 H POC ABG pCO2 POC ABG pO2 ABG pO2 157.1 H ABG HCO3 32.3 H ABG O2 Saturation ABG Base Excess 8.1 H ABG Hemoglobin 13.2 L ABG Oxyhemoglobin ABG Potassium ABG Glucose Oxyhemoglobin Carboxyhemoglobin Sodium Potassium Chloride Carbon Dioxide BUN Creatinine Glucose POC Glucose 109 H Ferritin Total Bilirubin Alkaline Phosphatase Lactate Dehydrogenase Troponin T C-Reactive Protein Albumin Prealbumin LDL Cholesterol Direct Arterial Blood Glucose Arterial Blood Ionized Calcium 03/01/20 03/01/20 03/01/20 04:33 05:29 12:32 WBC RBC MCV MCH RDW Plt Count Lymph % (Auto) Holt # (Auto) Seg Neutrophils % Seg Neuts % (Manual) Lymphocytes % (Manual) Seg Neutrophils # Seg Neutrophils # Man Lymphocytes # (Manual) Monocytes # (Manual) Eosinophils # (Manual) PT INR D-Dimer ABG pH POC ABG pCO2 POC ABG pO2 ABG pO2 ABG HCO3 ABG O2 Saturation ABG Base Excess ABG Hemoglobin ABG Oxyhemoglobin ABG Potassium ABG Glucose Oxyhemoglobin Carboxyhemoglobin Sodium 146 H Potassium Chloride Carbon Dioxide 32 H BUN Creatinine < 0.2 L Glucose 120 H POC Glucose 120 H 128 H Ferritin Total Bilirubin Alkaline Phosphatase Lactate Dehydrogenase Troponin T C-Reactive Protein Albumin Prealbumin LDL Cholesterol Direct Arterial Blood Glucose Arterial Blood Ionized Calcium 03/01/20 03/01/20 03/02/20 17:38 23:46 06:13 WBC RBC MCV MCH RDW Plt Count Lymph % (Auto) Holt # (Auto) Seg Neutrophils % Seg Neuts % (Manual) Lymphocytes % (Manual) Seg Neutrophils # Seg Neutrophils # Man Lymphocytes # (Manual) Monocytes # (Manual) Eosinophils # (Manual) PT INR D-Dimer ABG pH POC ABG pCO2 POC ABG pO2 ABG pO2 ABG HCO3 ABG O2 Saturation ABG Base Excess ABG Hemoglobin ABG Oxyhemoglobin ABG Potassium ABG Glucose Oxyhemoglobin Carboxyhemoglobin Sodium Potassium Chloride Carbon Dioxide BUN Creatinine Glucose POC Glucose 114 H 121 H 120 H Ferritin Total Bilirubin Alkaline Phosphatase Lactate Dehydrogenase Troponin T C-Reactive Protein Albumin Prealbumin LDL Cholesterol Direct Arterial Blood Glucose Arterial Blood Ionized Calcium 03/02/20 03/02/20 03/03/20 09:47 09:47 10:21 WBC 23.6 H RBC MCV MCH RDW 15.3 H Plt Count 494 H Lymph % (Auto) Holt # (Auto) Seg Neutrophils % Seg Neuts % (Manual) 85.0 H Lymphocytes % (Manual) 6.0 L Seg Neutrophils # Seg Neutrophils # Man 20.1 H Lymphocytes # (Manual) Monocytes # (Manual) 1.7 H Eosinophils # (Manual) PT INR D-Dimer ABG pH POC ABG pCO2 POC ABG pO2 ABG pO2 ABG HCO3 ABG O2 Saturation ABG Base Excess ABG Hemoglobin ABG Oxyhemoglobin ABG Potassium 3.3 L ABG Glucose 158 H Oxyhemoglobin Carboxyhemoglobin Sodium Potassium Chloride Carbon Dioxide BUN Creatinine < 0.2 L Glucose 177 H POC Glucose Ferritin Total Bilirubin Alkaline Phosphatase Lactate Dehydrogenase Troponin T C-Reactive Protein Albumin Prealbumin LDL Cholesterol Direct Arterial Blood Glucose 158 H Arterial Blood Ionized Calcium Chest x-ray: other (none today) Allied health notes reviewed: nursing
--- NOTE | 2020-03-03 13:19 | Progress Note ---
Assessment and Plan Cultures: Blood culture no growth today SARS CoV2 PCR negative Sputum culture with normal respiratory bernice. Assessment: 59 years old female with history of ALS with chronic respiratory failure on home trilogy BiPAP, admitted on 02/24/2020 due to worsening shortness of breath for 24 hours: #Severe sepsis: likely due to bilateral pneumonia +/- left gluteal necrotic pressure ulcer. Remains with low-grade fever, leukocytosis #Severe bilateral pneumonia: Likely community-acquired pneumonia. Procalcitonin elevated-1.13. CTA shows no PE but multifocal pneumonia with predominance left lower lobe. No DVT on US. Elevated D-dimer -1311. SARS-CoV-2 PCR negative. Sputum culture normal respiratory bernice. CRP 26-->4. Prcal 1.1-->1.6. Repeat CXR near complete atelectasis resolved. #Left gluteal necrotic pressure ulcer: S/p debridement, not infected per wound care. #Acute on chronic mixed respiratory failure: Intubated, re intubated overnight. #ALS Recommendations: -repeat blood culture/ua/sputum -continue cefepime 2 g iv q8h to cover sacral wound - day 3 of 5 (was on ceftriaxone/azitho for 5 days) -continue vancomycin w PL consult to cover sacral wound - day3 of 5 (was on ceftriaxone/azitho for 5 days) -per Dr Flowers no suspicion for osteomyelitis -Monitor fever and leukocytosis Dr Cueva is covering this weekend Will follow Diana Maravilla MD Infectious Diseases Basket [facility] [phone] O [phone] Subjective Date of service: 03/03/20 Principal diagnosis: Ac on Ch Hypercapnic & hypoxemic Resp Failure; Severe Sepsis; Jamar PNA; ALS Interval history: Remains intubated, fever 100.1, no acute event Objective - Exam Narrative Exam: General appearance: Intubated, alert follows commands Eyes: anicteric sclerae, moist conjunctivae; no lid-lag; PERRLA HENT: Normocephalic, Atraumatic; normal external ears, nares open, oropharynx limited, endotracheal tube in place, NG tube Neck: supple, tracheal midline, no JVD Lungs: Bilateral rhonchi CV: RRR no murmur Abdomen: Soft, non-tender; no masses or hepatosplenomegaly Extremities: no edema, no cyanosis Skin: No rash. per wound care Left buttock unstageable pressure ulcer measuring 4.5x7x0.9cm. Wound bed is 7o% necrotic. Small amounts of yellow drainage with a mild odor noted. Psych: no agitated Neuro: Alert on the ventilator - Constitutional Vitals: Vital Signs Temp Pulse Resp BP Pulse Ox 99.6 F 91 H 17 131/90 96 03/03/20 12:00 03/03/20 11:36 03/03/20 11:36 03/03/20 11:36 03/03/20 11:36 Temperature -Last 24 Hours Temperature 99.6 F Temperature 99.7 F Temperature 98.3 F Temperature 97.9 F Temperature 99.5 F Temperature 98.3 F - Labs CBC & Chem 7: 03/02/20 09:47 03/02/20 09:47 Labs: Abnormal lab results 03/03/20 Range/Units 10:21 ABG Potassium 3.3 L (3.40-4.50) mmol/L ABG Glucose 158 H (65-95) mg/dL Arterial Blood Glucose 158 H (65-95) mg/dL
[2020-03-03] MEDS: SCOPOLAMINE TRANSDERMAL PATCH 72 HR TD SCH (14:20)
[2020-03-03 19:05] LABS: Bacteria,Urine 1+ /HPF (Negative); Bilirubin,Urine NEG (Negative); Blood,Urine SM (Negative); Color,Urine Yellow (Yellow); Mucus,Urine FEW /HPF; Protein,Urine <15 mg/dL mg/dL (Negative); Urobilinogen,Urine < 2.0 mg/dL (<2.0)
[2020-03-03] MEDS: ENOXAPARIN 40 MG/0.4 ML INJ SUB-Q SCH (21:21)
[2020-03-03 21:37] LABS: ABG Base Excess 6.8 mmol/L (-2.0-3.0); ABG Methemoglobin 0.6 % (0.0-1.5); ABG Oxygen Saturation 93.9 % (95.0-99.0); ABG PCO2 68.2 mm Hg; ABG PH 7.328 pH Units (7.350-7.450); ABG PO2 68.4 mm Hg (80.0-90.0)
[2020-03-03] MEDS: MORPHINE 2 MG/1 ML INJ IV PRN (21:43)
[2020-03-04] MEDS: VANCOMYCIN/NS 1 GM/250 ML 1 GM/250 ML BAG IV SCH ×2 (04:09→15:56)
[2020-03-04] MEDS: CEFEPIME/NS 2 GM/100 ML 2 GM/100 ML BAG IV SCH ×3 (05:13→22:13)
--- NOTE | 2020-03-04 08:44 | Progress Note ---
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 Patient was on a trilogy machine for breathing 18/11. EMS arrived, patient had O2 sats in the 80s. EMS attempted to place patient on their CPAP machine, hillmeredith lopez patient did not tolerate. Patient was admitted to the ICU with diagnosis of acute hypoxic respiratory failure and placed on BiPAP. Patient initially tolerated but later deteriorated with respiratory status. Therefore, patient was intubated on 02/26/2020 at 1500. Patient now on mechanical ventilation in the ICU. --Acute hypoxic hypercapnic respiratory failure; Intubated on mechanical ventilation. Etiology secondary to sepsis, ALS, multifocal pneumonia (Covid negative). Patient is on CPAP patient --ALS --Elevated D-dimers; CTA chest, lower extremity venous Doppler both are negative Lovenox DVT prophylaxis --Bilateral pneumonia; probably community-acquired Versus atypical, empiric antibiotics Rocephin and Zithromax Cultures, check pro calcitonin --Sepsis secondary to pneumonia Leukocytosis, tachycardia, pneumonia on chest x-ray --Elevated troponin; Serial cardiac enzymes, serial EKGs Echocardiogram, cardiology consult if needed --Hypokalemia; replaced with KCl Monitor levels --Hyponatremia; IV fluids Closely monitor electrolytes --DVT prophylaxis; Lovenox Admit to ICU for close observation 02/25/2020. CTA of the chest reveals no PE but does illustrate the bilateral pneumonia. Doppler ultrasound also negative for DVT. Blood cultures are pending. Await COVID-19 testing. Patient currently requiring BiPAP IPAP 24/EPAP 6 with FiO2 of 25%. Continue O2 and BiPAP as clinically indicated. ID and pulmonary consulted. 02/26/2020. Blood cultures are negative x48 hours and Covid testing negative as well. Continue antibiotics per ID recommendations for community-acquired bilateral pneumonia. Cardiology consultation for elevated troponin. Check echocardiogram. 02/27/2020. Events of yesterday noted with asystole following V. fib arrest. Patient currently on AC mode rate 20, tidal volume 400, FiO2 50% and a PEEP of 6. Follow-up echocardiogram for elevated troponin. Cardiology suspects NSTEMI Type 2 in the setting of acute resp failure. Chest CTA and BLE Dopplers neg. we will discontinue Decadron given the Covid PCR is negative. 02/28/2020. I spoke with the sister Felisa Eli who is the power of health care attorney regarding advanced directives and she instructed me that she would like to continue with aggressive care at this time. I informed her of the guarded prognosis and high mortality/morbidity and she voiced understanding. Patient currently with AC mode ventilation rate 18, tidal volume 400, FiO2 40% and a PEEP of 6. Continue antibiotics for pneumonia. ID previously consulted. Also consult neurology with regards to ALS. 02/29/2020; patient is intubated and on CPAP patient is alert and oriented. Patient has ALS. Dr. Álvarez spoke with his sister and she wants aggressive care. Continue antibiotics for pneumonia. Neurology consulted for ALS. Prognosis poor 03/01/2020; patient is intubated and on CPAP, patient is alert and oriented. I spoke with his 2 sisters about the management plan. 03/02/2020; patient is intubated and on CPAP. Patient was alert and oriented. I spoke with Dr. mohr and he thinks patient may need mechanical ventilation, likely his disease progressed. Dr. Flowers did debridement this morning. 03/03/2020; patient is intubated and on CPAP, patient was on trilogy and BiPAP at home. Patient has ALS. on spontaneous breathing trial. Patient is alert and oriented but quadriplegic. Patient has severe bilateral pneumonia and is on cefepime and Vanco, ID is following. Patient has sacral decubitus ulcer and debridement was done by Dr. Flowers and there is no osteomyelitis. The high probability of a clinically significant, sudden or life threatening deterioration of the [cardiac and respiratory] system(s) required my full and direct attention, intervention and personal management. The aggregate critical care time was [34] minutes. This time is in addition to time spent performing reported procedures but includes the following: [x] Data Review and interpretation [x] Patient assessment and monitoring of vital signs [x] Documentation [x] Medication orders and management History Interval history: Patient was seen and evaluated this morning Patient is intubated, CPAP Patient was alert and oriented, he said he understand plan nodding his head Hospitalist Physical - Physical exam Narrative exam: Not in cardiopulmonary distress. The patient appeared well nourished and normally developed. Vital signs as documented. Head exam is unremarkable. No scleral icterus . Neck is without jugular venous distension, thyromegaly, or carotid bruits. Lungs are clear to auscultation. Cardiac exam reveals regular rate and Rhythm. Abdominal exam reveals normal bowel sounds, nontender, no organomegaly. Extremities are nonedematous and both femoral and pedal pulses are normal. CREDIT ANALYST: Alert and oriented 3. 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 - Constitutional Vitals: Temp Pulse Resp BP Pulse Ox 98.0 F 103 H 31 H 128/81 98 03/04/20 07:41 03/04/20 08:00 03/04/20 08:00 03/04/20 08:00 03/04/20 08:00 General appearance: Present: mild distress, other (Intubated on mechanical ventilation) HEART Score - HEART Score Troponin: Troponin T 0.034 ng/mL (0.00-0.029) H D 02/24/20 19:35 Results - Labs CBC & Chem 7: 03/02/20 09:47 03/02/20 09:47 Labs: Laboratory Last Values WBC 23.6 K/mm3 (4.5-11.0) H 03/02/20 09:47 RBC 4.75 M/mm3 (3.65-5.03) 03/02/20 09:47 Hgb 13.2 gm/dl (11.8-15.2) 03/02/20 09:47 Hct 40.1 % (35.5-45.6) 03/02/20 09:47 MCV 85 fl (84-94) 03/02/20 09:47 MCH 28 pg (28-32) 03/02/20 09:47 MCHC 33 % (32-34) 03/02/20 09:47 RDW 15.3 % (13.2-15.2) H 03/02/20 09:47 Plt Count 494 K/mm3 (140-440) H 03/02/20 09:47 Lymph % (Auto) 8.7 % (13.4-35.0) L 02/28/20 04:15 [place] % (Auto) 6.6 % (0.0-7.3) 02/28/20 04:15 Eos % (Auto) 0.0 % (0.0-4.3) 02/28/20 04:15 Baso % (Auto) 0.1 % (0.0-1.8) 02/28/20 04:15 Lymph # (Auto) 1.6 K/mm3 (1.2-5.4) 02/28/20 04:15 [place] # (Auto) 1.2 K/mm3 (0.0-0.8) H 02/28/20 04:15 Eos # (Auto) 0.0 K/mm3 (0.0-0.4) 02/28/20 04:15 Baso # (Auto) 0.0 K/mm3 (0.0-0.1) 02/28/20 04:15 Add Manual Diff Complete 03/02/20 09:47 Total Counted 100 03/02/20 09:47 Seg Neutrophils % 84.6 % (40.0-70.0) H 02/28/20 04:15 Seg Neuts % (Manual) 85.0 % (40.0-70.0) H 03/02/20 09:47 Band Neutrophils % 0 % 03/02/20 09:47 Lymphocytes % (Manual) 6.0 % (13.4-35.0) L 03/02/20 09:47 Reactive Lymphs % (Man) 1.0 % 03/02/20 09:47 Monocytes % (Manual) 7.0 % (0.0-7.3) 03/02/20 09:47 Eosinophils % (Manual) 0 % (0.0-4.3) 03/02/20 09:47 Basophils % (Manual) 0 % (0.0-1.8) 03/02/20 09:47 Metamyelocytes % 1.0 % 03/02/20 09:47 Myelocytes % 0 % 03/02/20 09:47 Promyelocytes % 0 % 03/02/20 09:47 Blast Cells % 0 % 03/02/20 09:47 Nucleated RBC % Not Reportable 03/02/20 09:47 Seg Neutrophils # 15.9 K/mm3 (1.8-7.7) H 02/28/20 04:15 Seg Neutrophils # Man 20.1 K/mm3 (1.8-7.7) H 03/02/20 09:47 Band Neutrophils # 0.0 K/mm3 03/02/20 09:47 Lymphocytes # (Manual) 1.4 K/mm3 (1.2-5.4) 03/02/20 09:47 Abs React Lymphs (Man) 0.2 K/mm3 03/02/20 09:47 Monocytes # (Manual) 1.7 K/mm3 (0.0-0.8) H 03/02/20 09:47 Eosinophils # (Manual) 0.0 K/mm3 (0.0-0.4) 03/02/20 09:47 Basophils # (Manual) 0.0 K/mm3 (0.0-0.1) 03/02/20 09:47 Metamyelocytes # 0.2 K/mm3 03/02/20 09:47 Myelocytes # 0.0 K/mm3 03/02/20 09:47 Promyelocytes # 0.0 K/mm3 03/02/20 09:47 Blast Cells # 0.0 K/mm3 03/02/20 09:47 WBC Morphology Not Reportable 03/02/20 09:47 Hypersegmented Neuts Not Reportable 03/02/20 09:47 Hyposegmented Neuts Not Reportable 03/02/20 09:47 Hypogranular Neuts Not Reportable 03/02/20 09:47 Smudge Cells Not Reportable 03/02/20 09:47 Toxic Granulation Not Reportable 03/02/20 09:47 Toxic Vacuolation Not Reportable 03/02/20 09:47 Dohle Bodies Not Reportable 03/02/20 09:47 Pelger-Huet Anomaly Not Reportable 03/02/20 09:47 Robert Rods Not Reportable 03/02/20 09:47 Platelet Estimate Consistent w auto 03/02/20 09:47 Clumped Platelets Not Reportable 03/02/20 09:47 Plt Clumps, EDTA Not Reportable 03/02/20 09:47 Large Platelets Not Reportable 03/02/20 09:47 Giant Platelets Not Reportable 03/02/20 09:47 Platelet Satelliting Not Reportable 03/02/20 09:47 Plt Morphology Comment Not Reportable 03/02/20 09:47 RBC Morphology Normal 03/02/20 09:47 Dimorphic RBCs Not Reportable 03/02/20 09:47 Polychromasia Not Reportable 03/02/20 09:47 Hypochromasia Not Reportable 03/02/20 09:47 Poikilocytosis Not Reportable 03/02/20 09:47 Anisocytosis Not Reportable 03/02/20 09:47 Microcytosis Not Reportable 03/02/20 09:47 Macrocytosis Not Reportable 03/02/20 09:47 Spherocytes Not Reportable 03/02/20 09:47 Pappenheimer Bodies Not Reportable 03/02/20 09:47 Sickle Cells Not Reportable 03/02/20 09:47 Target Cells Not Reportable 03/02/20 09:47 Tear Drop Cells Not Reportable 03/02/20 09:47 Ovalocytes Not Reportable 03/02/20 09:47 Helmet Cells Not Reportable 03/02/20 09:47 Gregory-Aquadale Bodies Not Reportable 03/02/20 09:47 [place] Rings Not Reportable 03/02/20 09:47 Riaz Cells Not Reportable 03/02/20 09:47 Bite Cells Not Reportable 03/02/20 09:47 Crenated Cell Not Reportable 03/02/20 09:47 Elliptocytes Not Reportable 03/02/20 09:47 Acanthocytes (Spur) Not Reportable 03/02/20 09:47 Rouleaux Not Reportable 03/02/20 09:47 Hemoglobin C Crystals Not Reportable 03/02/20 09:47 Schistocytes Not Reportable 03/02/20 09:47 Malaria parasites Not Reportable 03/02/20 09:47 Colton Bodies Not Reportable 03/02/20 09:47 Hem Pathologist Commnt No 03/02/20 09:47 PT 15.6 Sec. (12.2-14.9) H 02/24/20 09:19 INR 1.21 (0.87-1.13) H 02/24/20 09:19 APTT 25.4 Sec. (24.2-36.6) 02/24/20 09:19 D-Dimer 1311.96 ng/mlDDU (0-234) H 02/24/20 09:19 ABG pH 7.328 pH Units (7.350-7.450) L 03/03/20 21:30 POC ABG pCO2 46.9 mmHg (32.0-48.0) 03/03/20 10:21 ABG pCO2 68.2 mm Hg 03/03/20 21:30 POC ABG pO2 83.0 mmHg (83-108) 03/03/20 10:21 ABG pO2 68.4 mm Hg (80.0-90.0) L 03/03/20 21:30 POC ABG HCO3 30.7 03/03/20 10:21 ABG HCO3 35.0 mmol/L (20.0-26.0) H 03/03/20 21:30 ABG O2 Saturation 93.9 % (95.0-99.0) L 03/03/20 21:30 ABG O2 Content 16.4 (0.0-44) 03/03/20 21:30 POC ABG Base Excess 5.6 03/03/20 10: ABG Base Excess 6.8 mmol/L (-2.0-3.0) H 03/03/20 21:30 ABG Hemoglobin 12.7 gm/dl (14.0-18.0) L 03/03/20 21:30 ABG Oxyhemoglobin 99.2 (94-98) H 02/26/20 17:00 ABG Carboxyhemoglobin 1.5 % (0.0-5.0) 03/03/20 21:30 ABG Methemoglobin 0.6 % (0.0-1.5) 03/03/20 21:30 ABG Sodium 140.4 mmol/L (136.0-145.0) 03/03/20 10:21 ABG Potassium 3.3 mmol/L (3.40-4.50) L 03/03/20 10:21 ABG Chloride 103.0 mmol/L (98-107) 03/03/20 10:21 ABG Glucose 158 mg/dL (65-95) H 03/03/20 10:21 Oxyhemoglobin 91.9 % (95.0-99.0) L 03/03/20 21:30 Carboxyhemoglobin 0.4 (0.5-1.5) L 02/26/20 17:00 FiO2 25 % 03/03/20 21:30 Sodium 140 mmol/L (137-145) 03/02/20 09:47 Potassium 3.8 mmol/L (3.6-5.0) 03/02/20 09:47 Chloride 101.8 mmol/L (98-107) 03/02/20 09:47 Carbon Dioxide 29 mmol/L (22-30) 03/02/20 09:47 Anion Gap 13 mmol/L 03/02/20 09:47 BUN 15 mg/dL (9-20) 03/02/20 09:47 Creatinine < 0.2 mg/dL (0.8-1.3) L 03/02/20 09:47 Estimated GFR > 60 ml/min 03/02/20 09:47 BUN/Creatinine Ratio 75 % 03/02/20 09:47 Glucose 177 mg/dL (75-100) H 03/02/20 09:47 POC Glucose 187 mg/dL (70-105) H 03/04/20 00:00 Lactic Acid 1.00 mmol/L (0.7-2.0) 02/24/20 12:07 Calcium 8.5 mg/dL (8.4-10.2) 03/02/20 09:47 Magnesium 2.30 mg/dL (1.7-2.3) 02/25/20 04:00 Ferritin 1715.0 ng/mL (30.0-300.0) H 02/24/20 10:01 Total Bilirubin 0.80 mg/dL (0.1-1.2) 02/25/20 04:00 AST 17 units/L (5-40) 02/25/20 04:00 ALT 21 units/L (7-56) 02/25/20 04:00 Alkaline Phosphatase 105 units/L (35-129) 02/25/20 04:00 Lactate Dehydrogenase 303 units/L (91-180) H 02/24/20 09:19 Total Creatine Kinase 101 units/L (55-170) 02/24/20 19:35 CK-MB (CK-2) 3.5 ng/mL (0.0-4.0) 02/24/20 19:35 CK-MB (CK-2) Rel Index 3.4 (0-4) 02/24/20 19:35 Troponin T 0.034 ng/mL (0.00-0.029) H D 02/24/20 19:35 C-Reactive Protein 4.70 mg/dL (0.00-1.30) H 02/28/20 11:05 NT-Pro-B Natriuret Pep 48.30 pg/mL (0-900) 02/24/20 09:19 Total Protein 6.5 g/dL (6.3-8.2) 02/25/20 04:00 Albumin 3.5 g/dL (3.9-5) L 02/25/20 04:00 Albumin/Globulin Ratio 1.2 % 02/25/20 04:00 Prealbumin 0.090 g/L (0.200-0.400) L 02/28/20 12:54 Triglycerides 60 mg/dL (2-149) 02/24/20 09:19 Cholesterol 104 mg/dL (50-199) 02/24/20 09:19 LDL Cholesterol Direct 41 mg/dL (50-130) L 02/24/20 09:19 HDL Cholesterol 45 mg/dL (40-59) 02/24/20 09:19 Cholesterol/HDL Ratio 2.31 % 02/24/20 09:19 Procalcitonin 1.68 ng/mL (<0.15) 02/28/20 14:51 Arterial Blood Glucose 158 mg/dL (65-95) H 03/03/20 10:21 Arterial Blood Ionized Calcium 4.7 mg/dL (4.6-5.3) 03/03/20 10:21 Urine Color Yellow (Yellow) 03/03/20 18:00 Urine Turbidity Clear (Clear) 03/03/20 18:00 Urine pH 6.0 (5.0-7.0) 03/03/20 18:00 Ur Specific [place] 1.017 (1.003-1.030) 03/03/20 18:00 Urine Protein <15 mg/dl mg/dL (Negative) 03/03/20 18:00 Urine Glucose (UA) Neg mg/dL (Negative) 03/03/20 18:00 Urine Ketones Neg mg/dL (Negative) 03/03/20 18:00 Urine Blood Sm (Negative) 03/03/20 18:00 Urine Nitrite Neg (Negative) 03/03/20 18:00 Urine Bilirubin Neg (Negative) 03/03/20 18:00 Urine Urobilinogen < 2.0 mg/dL (<2.0) 03/03/20 18:00 Ur Leukocyte Esterase Neg (Negative) 03/03/20 18:00 Urine WBC (Auto) 4.0 /HPF (0.0-6.0) 03/03/20 18:00 Urine RBC (Auto) 10.0 /HPF (0.0-6.0) 03/03/20 18:00 Urine Bacteria (Auto) 1+ /HPF (Negative) 03/03/20 18:00 Urine Mucus Few /HPF 03/03/20 18:00 Urine Yeast (Budding) 2+ /HPF 03/03/20 18:00 Coronavirus (PCR) Negative (Negative) 02/25/20 09:03 Microbiology: Microbiology 03/03/20 15:08 Peripheral/Venous Blood Culture - Preliminary Culture in Progress 03/03/20 15:08 Peripheral/Venous Blood Culture - Preliminary Culture in Progress - Diagnostic Impressions Diagnostic Impressions: Echocardiogram 02/26/20 10:41 Transthoracic Echocardiogram Indication: Elevated Trop BP: 116/75 HR: 85 Conclusions *Global left ventricular wall motion and contractility are within normal limits. *The estimated ejection fraction is 50-55%. *Abnormal left ventricular diastolic filling is observed, consistent with impaired relaxation. *There is no pericardial effusion. Findings Left Ventricle: The left ventricular chamber size is normal. Global left ventricular wall motion and contractility are within normal limits. Global left ventricular systolic function is normal. The estimated ejection fraction is 50-55%. Abnormal left ventricular diastolic filling is observed, consistent with impaired relaxation. Left Atrium: The left atrial chamber size is normal. Right Ventricle: The right ventricular cavity size is normal. Right Atrium: The right atrial cavity size is normal. Aortic Valve: Mild aortic leaflet calcification is visualized. There is no evidence of aortic regurgitation. Mitral Valve: The mitral valve leaflets are mildly thickened. There is no evidence of mitral regurgitation. Tricuspid Valve: The tricuspid valve leaflets are normal. There is trace tricuspid regurgitation. The right ventricular systolic pressure is calculated at 29 mmHg. Pulmonic Valve: The pulmonic valve is not well visualized. Pericardium: There is no pericardial effusion. Aorta: The aorta appears normal. Venous: The inferior vena cava is dilated. There is less than 50% respiratory change in the inferior vena cava dimension. Measurements Chambers 2D Name Value Normal Range IVSd (2D) 0.97 cm (0.6 - 1.1) LVPWd (2D) 0.93 cm (0.6 - 1.1) LVIDd (2D) 4 cm (3.7 - 5.6) LVIDs (2D) 2.73 cm (2 - 3.8) LV FS (2D) 31.67 % - EF Teichholz (2D) 60.23 % - Ao root diameter (2D) 3.51 cm (2 - 3.7) Volumes/Mass Name Value Normal Range LA ESV SP 4CH (A/L) 8.43 ml - LA ESV SP 2CH (A/L) 18.89 ml - LA ESV BP (A/L) 13.02 ml - LA ESV BP (A/L) index 8.8 ml/m2 - LA ESV SP 4CH (MOD) 7.22 ml - LA ESV SP 2CH (MOD) 18.15 ml - LA ESV BP (MOD) 11.47 ml - LA ESV BP (MOD) index 7.75 ml/m2 - Diastolic/Systolic Function Name Value Normal Range MV E-wave Vmax 0.51 m/sec - MV deceleration time 180.22 msec - MV A-wave Vmax 0.62 m/sec - MV E:A ratio 0.82 ratio - Aortic Valve Name Value Normal Range AV Vmax 1.17 m/sec - AV VTI 19.71 cm - AV peak gradient 5.44 mmHg - AV mean gradient 3.38 mmHg - LVOT diameter 2.26 cm - LVOT Vmax 0.89 m/sec - LVOT VTI 13.72 cm - LVOT peak gradient 3.17 mmHg - LVOT mean gradient 1.67 mmHg - SV LVOT 55.03 ml - SHARAD (continuity Vmax) 3.06 cm2 - SHARAD (continuity VTI) 2.79 cm2 - Tricuspid Valve Name Value Normal Range TR Vmax 2.3 m/sec - TR peak gradient 21 mmHg - RAP 8 mmHg - RVSP 29 mmHg - IVC diameter 2.59 cm (1.2 - 2.3) Pulmonic Valve/Qp:Qs Name Value Normal Range PV acceleration time 68.51 msec - [place]ardon/IV: Voiding Method Condom Catheter IV Catheter Type [Left Wrist] Peripheral IV IV Catheter Type [Right INT / Saline Lock Forearm] IV Catheter Type [Right Triple Lumen Cath Internal Jugular] IV Catheter Type [Left Forearm INT / Saline Lock ] IV Catheter Type [Right Triple Lumen Cath Femoral] IV Catheter Type [Right INT / Saline Lock Antecubital] Active Medications - Current Medications Current Medications: Generic Name Dose Route Start Last Admin Trade Name Freq PRN Reason Stop Dose Admin Acetaminophen 650 mg 02/24/20 15:13 02/28/20 09:18 Tylenol PO 650 mg Q4H PRN Administration Pain, Mild (1-3) Albuterol 2.5 mg 02/24/20 15:13 Proventil IH Q4HRT PRN Shortness Of Breath Lipase/Protease/Amylase 1 each 02/26/20 11:[address] 10,500 Unit FEEDTUBE PRN PRN For Clogged Feeding Tube Enoxaparin Sodium 40 mg 02/24/20 22:00 03/03/20 21:21 Enoxaparin SUB-Q 40 mg QDAY@2200 ALISA Administration Protocol Dopamine HCl/Dextrose 800 mg in 250 mls @ 3.338 mls/hr 02/26/20 16:00 02/26/20 17:11 Intropin Drip 800 Mg/D5w 250 Ml IV 0 mcg/kg/min TITR ALISA 0 mls/hr Titration Protocol 2 MCG/KG/MIN Cefepime HCl 2 gm in 100 mls @ 200 mls/hr 03/01/20 14:00 03/04/20 05:13 Cefepime/Ns 2 Gm/100 Ml IV 200 mls/hr Q8HR ALISA Administration Protocol Vancomycin HCl 1 gm in 250 mls @ 166.667 mls/hr 03/02/20 04:00 03/04/20 04:09 Vancomycin/Ns 1 Gm/250 Ml IV 166.667 mls/hr Q12H ALISA Administration Lansoprazole 30 mg 02/28/20 10:00 03/03/20 11:01 Prevacid Solutab FEEDTUBE 30 mg QDAY ALISA Administration Metoprolol Tartrate 12.5 mg 02/24/20 22:00 03/03/20 21:21 Metoprolol PO 12.5 mg BID ALISA Administration Morphine Sulfate 2 mg 02/29/20 16:42 03/03/20 21:43 Morphine IV 2 mg Q4H PRN Administration Pain, Moderate (4-6) Scopolamine 1 each 03/03/20 14:00 03/03/20 14:20 Transderm-Scop TD 1 each Q3D ALISA Administration Simple Syrup 15 ml 02/26/20 11:16 Simple Syrup FEEDTUBE PRN PRN Hypoglycemia Simple Syrup 30 ml 02/26/20 11:16 Simple Syrup FEEDTUBE PRN PRN Hypoglycemia Sodium Bicarbonate 325 mg 02/26/20 11:16 Sodium Bicarbonate FEEDTUBE PRN PRN For Clogged Feeding Tube Nutrition/Malnutrition Assess - Dietary Evaluation Nutrition/Malnutrition Findings: Nutrition Notes Start: 02/26/20 10:40 Freq: Status: Active Protocol: Document 03/02/20 12:03 VALDO (Rec: 03/02/20 13:37 VALDO [id number]) Co-Sign 03/02/20 12:03 YOUNG Nutrition Notes Initial or Follow up Reassessment Current Diagnosis Decubitus(Pressure Ulcer), Sepsis,Respiratory Failure Other Pertinent Diagnosis COVID-19 (-), ALS, pneumonia, Hip/buttock PU Current Diet Vital AF 1.2 at 75ml/hr (goal rate) Labs/Tests Na 146 Pertinent Medications Cephalosporin Vancomycin Height 6 ft Weight 64.9 kg Usual Body Weight 65.91 kg [place] Body Weight (kg) 80.90 BMI 19.4 Weight Status Underweight Subjective/Other Information F/u TF tolerance and Will. Delivered Will to RN. Pt tolerating TF at goal rate. Percent of energy/protein needs met: 95%/100% Burn Absent Trauma Absent GI Symptoms None Skin Integrity/Comment Pressure Ulcer Stage 2 Current % PO Negligible Minimum of two criteria Yes Body Fat Depletion Mild depletion (non-severe) Muscle Mass Mild Depletion (non-severe) Reduced [place] Strength Measurably Reduced (severe) #3 Nutrition Diagnosis Malnutrition Diagnosis Progress(for reassessment Continues documentation) #2 Nutrition Diagnosis Inadequate oral intake Diagnosis Progress(for reassessment Continues documentation) #1 Nutrition Diagnosis Increased nutrient needs ( specify in comment below) Diagnosis Progress(for reassessment Continues documentation) Is patient on ventilator? Yes Is Patient Ambulatory and/or Out of Bed No REE-([facility]-confined to bed) 1807.284 Kcal/Kg value to use for calculation 35 Approximate Energy Requirements Using 2272 kcal/Kg Calculation Used for Recommendations Kcal/kg Additional Notes Protein 1.2-1.5-134g Fluid: 1ml/kcal Nutrition Intervention Change Diet Order: Continue TF Nutrition Support: Vital AF 1.2 at 75ml/hr. Flush 200ml q4h Kcal 2,160 Protein (gm) 135 Fluid (mL) 1,460 Add Supplement/Snack (indicate name/kcal Will BID /protein ) Provides kCal: 190 Provides Protein (gm) 5 Goal #1 Meet at least 80% of energy and protein needs via TF Goal #2 Wound healing Anticipated Discharge Needs: Unable to determine at this time Follow-Up By: 03/08/20 Additional Comments F/u stable TF and Will adm
[2020-03-04] MEDS: LANSOPRAZOLE 30 MG SOLUTAB FEEDTUBE SCH (09:17)
[2020-03-04] MEDS: METOPROLOL TARTRATE 25 MG TAB PO SCH ×2 (09:18→22:13)
[2020-03-04] MEDS: MORPHINE 2 MG/1 ML INJ IV PRN ×2 (09:55→15:55)
--- NOTE | 2020-03-04 10:21 | Progress Note ---
Assessment and Plan Cultures: Blood culture no growth today SARS CoV2 PCR negative Sputum culture with normal respiratory bernice. 03/03/2020 blood culture: In process Assessment: 59 years old female with history of ALS with chronic respiratory failure on home BiPAP, admitted on 02/24/2020 due to worsening shortness of breath for 24 hours: #Severe sepsis: likely due to bilateral pneumonia +/- left gluteal necrotic pressure ulcer. Remains with low-grade fever, leukocytosis #Severe bilateral pneumonia: Likely community-acquired pneumonia. Procalcitonin elevated-1.13. CTA shows no PE but multifocal pneumonia with predominance left lower lobe. No DVT on US. Elevated D-dimer -1311. SARS-CoV-2 PCR negative. Sputum culture normal respiratory bernice. CRP 26-->4. Prcal 1.1-->1.6. Repeat CXR on 03/01/2020 with resolution. #Left gluteal necrotic pressure ulcer: S/p debridement, not infected per wound care. Per Dr Flowers no suspicion for osteomyelitis. #Acute on chronic mixed respiratory failure: Intubated, re intubated. #ALS Recommendations: -f/u cultures -continue cefepime 2 g iv q8h to cover sacral wound - day 4 of 5 (was on ceftriaxone/azitho for 5 days) -continue vancomycin w PK consult to cover sacral wound - day 4 of 5 (was on ceftriaxone/azitho for 5 days) -Monitor fever and leukocytosis Dr. Gaines back on Friday. Blanca Cueva MD, FACP [facility], [place], [facility] ([facility]) O: [phone] F: [phone] Subjective Date of service: 03/04/20 Principal diagnosis: Ac on Ch Hypercapnic & hypoxemic Resp Failure; Severe Sepsis; Jamar PNA; ALS Interval history: No fever. Patient remains intubated. Opens eyes, no distress. Objective - Exam Narrative Exam: Physical Exam: Constitutional: Awake, intubated, on the vent Head, Ears, Nose: Normocephalic, atraumatic. External ears, nose normal Eyes: Conjunctivae/corneas clear. No icterus. No ptosis. Neck: intubated Oral: intubated Cardiovascular: S1, S2 + Respiratory: AE fair bilaterally and equal GI: Soft, bowel sounds + Musculoskeletal: No pedal edema, no cyanosis. Skin: No rash or abscess. Left buttock decubitus ulcer with dressing. Hem/Lymphatic: No palpable cervical or supraclavicular nodes. No lymphangitis Psych: no agitation Neurological: Awake, intubated, on the vent, exam limited. - Constitutional Vitals: Vital Signs Temp Pulse Resp BP Pulse Ox 98.0 F 108 H 31 H 140/89 98 03/04/20 07:41 03/04/20 09:18 03/04/20 08:00 03/04/20 09:18 03/04/20 08:00 Temperature -Last 24 Hours Temperature 98.0 F Temperature 99.9 F Temperature 98.1 F Temperature 98 F Temperature 98.4 F Temperature 99.6 F - Labs CBC & Chem 7: 03/02/20 09:47 03/02/20 09:47 Labs: Abnormal lab results 03/03/20 03/03/20 03/04/20 Range/Units 10:21 21:30 00:00 ABG pH 7.328 L (7.350-7.450) pH Units ABG pO2 68.4 L (80.0-90.0) mm Hg ABG HCO3 35.0 H (20.0-26.0) mmol/L ABG O2 Saturation 93.9 L (95.0-99.0) % ABG Base Excess 6.8 H (-2.0-3.0) mmol/L ABG Hemoglobin 12.7 L (14.0-18.0) gm/dl ABG Potassium 3.3 L (3.40-4.50) mmol/L ABG Glucose 158 H (65-95) mg/dL Oxyhemoglobin 91.9 L (95.0-99.0) % POC Glucose 187 H (70-105) mg/dL Arterial Blood Glucose 158 H (65-95) mg/dL - Imaging and cardiology Chest x-ray: report reviewed, image reviewed (03/01/2020 with no infiltrates)
--- NOTE | 2020-03-04 12:56 | Progress Note ---
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 Respiratory Failure Severe Sepsis with Shock Bilateral Pneumonia (Possible aspiration) History of ALS on Trilogy Oropharyngeal Dysphagia PUI-COVID Acute toxic metabolic encephalopathy Elevated D-dimer Elevated troponin possibly type 2 ischemia - continue Scopolamine patch for secretion control - continue Daily SAT and SBT assessment as tolerated - repeat ABG at 9pm again tonight if still on PSV / to assess ventilation - continue to rest on full support qhs - still plan for trial of extubation if passes SBT soon (if pH acceptable) - continue care as below otherwise; - wean supplemental oxygen for target O2 sat's > 92% acutely - bronchodilators with pulmonary hygiene per RT - VAP bundle addressed - continue lung protective strategies - continue bronchodilators with pulmonary hygiene per RT - wean per pulmonary driven protocols otherwise - sedation prn for target RASS 0 to -1 - empiric antiinfectives per ID rec's (Rocephin and Zithromax) - COVID-19 isolation (Airborne & Contact) - empiric Dexamethasonme - follow COVID-19 test results - trend inflammatory markers to aid clinical decision making - enteral nutrition at goal rate as tolerated - Aspiration precautions - accuchecks with glycemic control per SSI (While critically ill target blood glucose of 140-180 mg/dL; avoid hypoglycemia) - avoid nephrotoxins, renally dose all medications - avoid benzodiazepine's, reduce the possibility of delirium - prn analgesia per CPOT score - Maintenance of sleep-wake cycle, avoid delirium - aspiration precautions - G.I. & VTE prophylaxis - PT/OT/ROM exercises - mobility protocols for pressure ulcer prophylaxis - Monitor hemodynamics closely - continue other care per attending / other consultants - discharge planning ongoing concurrently .... Re-evaluate in am & prn CONDITION: CRITICAL PROGNOSIS: GUARDED CODE STATUS: FULL CODE The high probability of a clinically significant, sudden or life-threatening deterioration of the [respiratory, cardiovascular & neurologic] system(s) required my full and direct attention, intervention and personal management. The aggregate critical care time was [31] minutes without overlap. Time includes spent on; [x] Data Review and interpretation [x] Patient assessment and monitoring of vital signs [x] Documentation [x] Medication orders and management Subjective Date of service: 03/04/20 Principal diagnosis: Ac on Ch Hypercapnic & hypoxemic Resp Failure; Severe Sepsis; Jamar PNA; ALS Interval history: Patient is seen today for: Acute on Chronic Hypercapnic & hypoxemic Respiratory Failure; Severe Sepsis with Shock; Bilateral Pneumonia (Possible aspiration); History of ALS on Trilogy; PUI-COVID; Acute toxic metabolic encephalopathy Seen and examined at bedside; 24hour events reviewed; nursing and respiratory care staff consulted; no adverse overnight events reported to me; resting in bed; remains on MVS; completed PSV trial yesterday till bedtime but ABG showed hypoventilation; also still with moderate oropharyngeal secretions Objective Vital Signs - 12hr 03/04/20 03/04/20 03/04/20 01:00 01:15 01:25 Temperature Pulse Rate 114 H 114 H Pulse Rate [ From Monitor] Respiratory 18 Rate Blood Pressure 132/84 O2 Sat by Pulse 99 98 Oximetry 03/04/20 03/04/20 03/04/20 02:00 03:00 03:25 Temperature Pulse Rate 118 H 116 H Pulse Rate [ From Monitor] Respiratory 18 18 Rate Blood Pressure 140/87 116/73 O2 Sat by Pulse 99 99 98 Oximetry 03/04/20 03/04/20 03/04/20 03:46 04:00 04:25 Temperature 99.9 F H Pulse Rate 109 H 110 H Pulse Rate [ From Monitor] Respiratory 18 Rate Blood Pressure 144/72 119/72 O2 Sat by Pulse 98 98 98 Oximetry 03/04/20 03/04/20 03/04/20 05:00 06:00 06:23 Temperature Pulse Rate 112 H 106 H 106 H Pulse Rate [ From Monitor] Respiratory 21 22 Rate Blood Pressure 142/90 132/83 O2 Sat by Pulse 98 98 98 Oximetry 03/04/20 03/04/20 03/04/20 07:00 07:41 07:42 Temperature 98.0 F Pulse Rate 104 H 105 H Pulse Rate [ From Monitor] Respiratory 21 Rate Blood Pressure 126/76 131/84 O2 Sat by Pulse 98 98 Oximetry 03/04/20 03/04/20 03/04/20 08:00 08:30 08:46 Temperature Pulse Rate 98 H 101 H 101 H Pulse Rate [ 103 H From Monitor] Respiratory 31 H 22 26 H Rate Blood Pressure 128/81 136/83 136/83 O2 Sat by Pulse 98 98 98 Oximetry 03/04/20 03/04/20 03/04/20 09:00 09:16 09:18 Temperature Pulse Rate 104 H 97 H 108 H Pulse Rate [ From Monitor] Respiratory 28 H 31 H Rate Blood Pressure 140/89 140/89 140/89 O2 Sat by Pulse 98 98 Oximetry 03/04/20 03/04/20 03/04/20 09:25 09:30 09:46 Temperature Pulse Rate 87 100 H 90 Pulse Rate [ From Monitor] Respiratory 17 22 19 Rate Blood Pressure 123/83 117/84 117/84 O2 Sat by Pulse 97 98 98 Oximetry 03/04/20 03/04/20 03/04/20 10:00 10:16 10:30 Temperature Pulse Rate 90 88 92 H Pulse Rate [ From Monitor] Respiratory 21 16 18 Rate Blood Pressure 123/83 123/83 129/84 O2 Sat by Pulse 98 98 97 Oximetry 03/04/20 03/04/20 03/04/20 10:46 11:00 11:16 Temperature Pulse Rate 87 92 H 96 H Pulse Rate [ From Monitor] Respiratory 18 14 14 Rate Blood Pressure 129/84 136/89 136/89 O2 Sat by Pulse 98 97 97 Oximetry 03/04/20 03/04/20 03/04/20 11:30 11:40 11:46 Temperature Pulse Rate 98 H 87 90 Pulse Rate [ From Monitor] Respiratory 23 17 18 Rate Blood Pressure 136/89 144/86 146/86 O2 Sat by Pulse 97 97 97 Oximetry 03/04/20 12:00 Temperature 98.4 F Pulse Rate 86 Pulse Rate [ 86 From Monitor] Respiratory 16 Rate Blood Pressure 155/86 O2 Sat by Pulse 96 Oximetry Constitutional: appears uncomfortable, other (thin middle aged male with mildly increased respiratory effort at rest on MVS) Eyes: non-icteric ENT: oropharynx moist, other (ETT 23 cm LYNETTE) Neck: supple, no lymphadenopathy, no JVD Effort: mildly labored Ascultation: Bilateral: diminished breath sounds, rhonchi (scant in bases) Percussion: Bilateral: not dull Cardiovascular: regular rate and rhythm, other (S1,S2, no murmurs) Gastrointestinal: normoactive bowel sounds, soft, non-tender, non-distended Integumentary: normal, decubitus ulcer (sacral / gluteal) Extremities: no cyanosis, no edema, pulses normal, other (atrophic looking limbs) Neurologic: pupils equal and round, other (motor strength in extremities 1-2/5) Psychiatric: mood appropriate, affect normal CBC and BMP: 03/02/20 09:47 03/02/20 09:47 ABG, PT/INR, D-dimer: ABG ABG pH 7.328 pH Units (7.350-7.450) L 03/03/20 21:30 POC ABG pCO2 46.9 mmHg (32.0-48.0) 03/03/20 10:21 ABG pCO2 68.2 mm Hg 03/03/20 21:30 POC ABG pO2 83.0 mmHg (83-108) 03/03/20 10:21 ABG pO2 68.4 mm Hg (80.0-90.0) L 03/03/20 21:30 POC ABG HCO3 30.7 03/03/20 10:21 ABG O2 Saturation 93.9 % (95.0-99.0) L 03/03/20 21:30 PT/INR, D-dimer PT 15.6 Sec. (12.2-14.9) H 02/24/20 09:19 INR 1.21 (0.87-1.13) H 02/24/20 09:19 D-Dimer 1311.96 ng/mlDDU (0-234) H 02/24/20 09:19 Abnormal lab findings: Abnormal Labs 02/24/20 02/24/20 02/24/20 09:19 09:19 09:19 WBC 20.2 H RBC 5.05 H MCV MCH RDW 15.3 H Plt Count Lymph % (Auto) [place] # (Auto) Seg Neutrophils % Seg Neuts % (Manual) 86.0 H Lymphocytes % (Manual) 1.0 L Seg Neutrophils # Seg Neutrophils # Man 17.4 H Lymphocytes # (Manual) 0.2 L Monocytes # (Manual) Eosinophils # (Manual) PT 15.6 H INR 1.21 H D-Dimer 1311.96 H ABG pH POC ABG pCO2 POC ABG pO2 ABG pO2 ABG HCO3 ABG O2 Saturation ABG Base Excess ABG Hemoglobin ABG Oxyhemoglobin ABG Potassium ABG Glucose Oxyhemoglobin Carboxyhemoglobin Sodium 135 L Potassium 3.2 L Chloride 92.2 L Carbon Dioxide BUN 6 L Creatinine < 0.2 L Glucose 124 H POC Glucose Ferritin Total Bilirubin 2.30 H Alkaline Phosphatase 132 H Lactate Dehydrogenase Troponin T 0.080 H C-Reactive Protein Albumin 3.6 L Prealbumin LDL Cholesterol Direct 41 L Arterial Blood Glucose Arterial Blood Ionized Calcium 02/24/20 02/24/20 02/24/20 09:19 09:58 10:01 WBC RBC MCV MCH RDW Plt Count Lymph % (Auto) [place] # (Auto) Seg Neutrophils % Seg Neuts % (Manual) Lymphocytes % (Manual) Seg Neutrophils # Seg Neutrophils # Man Lymphocytes # (Manual) Monocytes # (Manual) Eosinophils # (Manual) PT INR D-Dimer ABG pH 7.176 L* POC ABG pCO2 POC ABG pO2 ABG pO2 91.2 H ABG HCO3 ABG O2 Saturation ABG Base Excess -4.6 L ABG Hemoglobin ABG Oxyhemoglobin ABG Potassium ABG Glucose Oxyhemoglobin 92.6 L Carboxyhemoglobin Sodium Potassium Chloride Carbon Dioxide BUN Creatinine Glucose POC Glucose Ferritin 1715.0 H Total Bilirubin Alkaline Phosphatase Lactate Dehydrogenase 303 H Troponin T C-Reactive Protein 26.10 H Albumin Prealbumin LDL Cholesterol Direct Arterial Blood Glucose Arterial Blood Ionized Calcium 02/24/20 02/24/20 02/24/20 11:52 13:45 19:35 WBC RBC MCV MCH RDW Plt Count Lymph % (Auto) [place] # (Auto) Seg Neutrophils % Seg Neuts % (Manual) Lymphocytes % (Manual) Seg Neutrophils # Seg Neutrophils # Man Lymphocytes # (Manual) Monocytes # (Manual) Eosinophils # (Manual) PT INR D-Dimer ABG pH 7.051 L* 7.300 L POC ABG pCO2 POC ABG pO2 ABG pO2 94.7 H 75.1 L ABG HCO3 18.0 L ABG O2 Saturation 93.5 L ABG Base Excess -6.8 L -7.8 L ABG Hemoglobin 13.2 L 11.9 L ABG Oxyhemoglobin ABG Potassium ABG Glucose Oxyhemoglobin 91.0 L 92.7 L Carboxyhemoglobin Sodium Potassium Chloride Carbon Dioxide BUN Creatinine Glucose POC Glucose Ferritin Total Bilirubin Alkaline Phosphatase Lactate Dehydrogenase Troponin T 0.034 H D C-Reactive Protein Albumin Prealbumin LDL Cholesterol Direct Arterial Blood Glucose Arterial Blood Ionized Calcium 02/25/20 02/25/20 02/25/20 04:00 04:00 12:26 WBC 22.9 H RBC MCV 83 L MCH 27 L RDW Plt Count 468 H Lymph % (Auto) [place] # (Auto) Seg Neutrophils % Seg Neuts % (Manual) 89.0 H Lymphocytes % (Manual) 7.0 L Seg Neutrophils # Seg Neutrophils # Man 20.4 H Lymphocytes # (Manual) Monocytes # (Manual) Eosinophils # (Manual) PT INR D-Dimer ABG pH POC ABG pCO2 POC ABG pO2 ABG pO2 ABG HCO3 ABG O2 Saturation ABG Base Excess ABG Hemoglobin ABG Oxyhemoglobin ABG Potassium 2.6 L ABG Glucose 142 H Oxyhemoglobin Carboxyhemoglobin Sodium Potassium 3.2 L Chloride Carbon Dioxide 18 L BUN Creatinine 0.2 L Glucose 114 H POC Glucose Ferritin Total Bilirubin Alkaline Phosphatase Lactate Dehydrogenase Troponin T C-Reactive Protein Albumin 3.5 L Prealbumin LDL Cholesterol Direct Arterial Blood Glucose 142 H Arterial Blood Ionized Calcium 02/26/20 02/26/20 02/26/20 15:58 17:00 23:43 WBC RBC MCV MCH RDW Plt Count Lymph % (Auto) [place] # (Auto) Seg Neutrophils % Seg Neuts % (Manual) Lymphocytes % (Manual) Seg Neutrophils # Seg Neutrophils # Man Lymphocytes # (Manual) Monocytes # (Manual) Eosinophils # (Manual) PT INR D-Dimer ABG pH 7.502 H POC ABG pCO2 POC ABG pO2 213.6 H ABG pO2 ABG HCO3 ABG O2 Saturation ABG Base Excess ABG Hemoglobin ABG Oxyhemoglobin 99.2 H ABG Potassium 2.9 L ABG Glucose 160 H Oxyhemoglobin Carboxyhemoglobin 0.4 L Sodium Potassium Chloride Carbon Dioxide BUN Creatinine Glucose POC Glucose 189 H 120 H Ferritin Total Bilirubin Alkaline Phosphatase Lactate Dehydrogenase Troponin T C-Reactive Protein Albumin Prealbumin LDL Cholesterol Direct Arterial Blood Glucose 160 H Arterial Blood Ionized Calcium 4.5 L 02/27/20 02/27/20 02/27/20 05:00 07:04 17:45 WBC RBC MCV MCH RDW Plt Count Lymph % (Auto) [place] # (Auto) Seg Neutrophils % Seg Neuts % (Manual) Lymphocytes % (Manual) Seg Neutrophils # Seg Neutrophils # Man Lymphocytes # (Manual) Monocytes # (Manual) Eosinophils # (Manual) PT INR D-Dimer ABG pH 7.524 H POC ABG pCO2 POC ABG pO2 ABG pO2 ABG HCO3 ABG O2 Saturation ABG Base Excess ABG Hemoglobin ABG Oxyhemoglobin ABG Potassium 3.0 L ABG Glucose 143 H Oxyhemoglobin Carboxyhemoglobin Sodium Potassium Chloride Carbon Dioxide BUN Creatinine Glucose POC Glucose 154 H 175 H Ferritin Total Bilirubin Alkaline Phosphatase Lactate Dehydrogenase Troponin T C-Reactive Protein Albumin Prealbumin LDL Cholesterol Direct Arterial Blood Glucose 143 H Arterial Blood Ionized Calcium 02/27/20 02/28/20 02/28/20 Unknown 00:21 04:15 WBC 18.7 H RBC MCV MCH RDW Plt Count Lymph % (Auto) 8.7 L [place] # (Auto) 1.2 H Seg Neutrophils % 84.6 H Seg Neuts % (Manual) Lymphocytes % (Manual) Seg Neutrophils # 15.9 H Seg Neutrophils # Man Lymphocytes # (Manual) Monocytes # (Manual) Eosinophils # (Manual) PT INR D-Dimer ABG pH POC ABG pCO2 POC ABG pO2 ABG pO2 ABG HCO3 ABG O2 Saturation ABG Base Excess ABG Hemoglobin ABG Oxyhemoglobin ABG Potassium ABG Glucose Oxyhemoglobin Carboxyhemoglobin Sodium Potassium 2.9 L* Chloride Carbon Dioxide 33 H D BUN Creatinine < 0.2 L Glucose 157 H POC Glucose 134 H Ferritin Total Bilirubin Alkaline Phosphatase Lactate Dehydrogenase Troponin T C-Reactive Protein Albumin Prealbumin LDL Cholesterol Direct Arterial Blood Glucose Arterial Blood Ionized Calcium 02/28/20 02/28/20 02/28/20 04:15 05:16 05:39 WBC RBC MCV MCH RDW Plt Count Lymph % (Auto) [place] # (Auto) Seg Neutrophils % Seg Neuts % (Manual) Lymphocytes % (Manual) Seg Neutrophils # Seg Neutrophils # Man Lymphocytes # (Manual) Monocytes # (Manual) Eosinophils # (Manual) PT INR D-Dimer ABG pH POC ABG pCO2 POC ABG pO2 ABG pO2 142.9 H ABG HCO3 34.1 H ABG O2 Saturation ABG Base Excess 8.3 H ABG Hemoglobin ABG Oxyhemoglobin ABG Potassium ABG Glucose Oxyhemoglobin Carboxyhemoglobin Sodium 151 H Potassium Chloride Carbon Dioxide 32 H BUN Creatinine 0.2 L Glucose 167 H POC Glucose 138 H Ferritin Total Bilirubin Alkaline Phosphatase Lactate Dehydrogenase Troponin T C-Reactive Protein Albumin Prealbumin LDL Cholesterol Direct Arterial Blood Glucose Arterial Blood Ionized Calcium 02/28/20 02/28/20 02/28/20 11:05 11:33 12:54 WBC RBC MCV MCH RDW Plt Count Lymph % (Auto) [place] # (Auto) Seg Neutrophils % Seg Neuts % (Manual) Lymphocytes % (Manual) Seg Neutrophils # Seg Neutrophils # Man Lymphocytes # (Manual) Monocytes # (Manual) Eosinophils # (Manual) PT INR D-Dimer ABG pH POC ABG pCO2 POC ABG pO2 ABG pO2 ABG HCO3 ABG O2 Saturation ABG Base Excess ABG Hemoglobin ABG Oxyhemoglobin ABG Potassium ABG Glucose Oxyhemoglobin Carboxyhemoglobin Sodium Potassium Chloride Carbon Dioxide BUN Creatinine Glucose POC Glucose 160 H Ferritin Total Bilirubin Alkaline Phosphatase Lactate Dehydrogenase Troponin T C-Reactive Protein 4.70 H Albumin Prealbumin 0.090 L LDL Cholesterol Direct Arterial Blood Glucose Arterial Blood Ionized Calcium 02/28/20 02/29/20 02/29/20 17:34 00:44 04:05 WBC 19.6 H RBC MCV MCH 27 L RDW 15.4 H Plt Count Lymph % (Auto) [place] # (Auto) Seg Neutrophils % Seg Neuts % (Manual) 86.0 H Lymphocytes % (Manual) 7.0 L Seg Neutrophils # Seg Neutrophils # Man 16.9 H Lymphocytes # (Manual) Monocytes # (Manual) 1.2 H Eosinophils # (Manual) PT INR D-Dimer ABG pH POC ABG pCO2 POC ABG pO2 ABG pO2 ABG HCO3 ABG O2 Saturation ABG Base Excess ABG Hemoglobin ABG Oxyhemoglobin ABG Potassium ABG Glucose Oxyhemoglobin Carboxyhemoglobin Sodium Potassium Chloride Carbon Dioxide BUN Creatinine Glucose POC Glucose 136 H 156 H Ferritin Total Bilirubin Alkaline Phosphatase Lactate Dehydrogenase Troponin T C-Reactive Protein Albumin Prealbumin LDL Cholesterol Direct Arterial Blood Glucose Arterial Blood Ionized Calcium 02/29/20 02/29/20 02/29/20 04:05 05:14 05:33 WBC RBC MCV MCH RDW Plt Count Lymph % (Auto) [place] # (Auto) Seg Neutrophils % Seg Neuts % (Manual) Lymphocytes % (Manual) Seg Neutrophils # Seg Neutrophils # Man Lymphocytes # (Manual) Monocytes # (Manual) Eosinophils # (Manual) PT INR D-Dimer ABG pH POC ABG pCO2 54.3 H POC ABG pO2 124.8 H ABG pO2 ABG HCO3 ABG O2 Saturation ABG Base Excess ABG Hemoglobin ABG Oxyhemoglobin ABG Potassium ABG Glucose 185 H Oxyhemoglobin Carboxyhemoglobin Sodium 148 H Potassium Chloride Carbon Dioxide 33 H BUN Creatinine < 0.2 L Glucose 173 H POC Glucose 152 H Ferritin Total Bilirubin Alkaline Phosphatase Lactate Dehydrogenase Troponin T C-Reactive Protein Albumin Prealbumin LDL Cholesterol Direct Arterial Blood Glucose 185 H Arterial Blood Ionized Calcium 03/01/20 03/01/20 03/01/20 00:00 03:45 04:33 WBC 23.1 H RBC MCV MCH 27 L RDW 15.3 H Plt Count Lymph % (Auto) [place] # (Auto) Seg Neutrophils % Seg Neuts % (Manual) 92.0 H Lymphocytes % (Manual) 6.0 L Seg Neutrophils # Seg Neutrophils # Man 21.3 H Lymphocytes # (Manual) Monocytes # (Manual) Eosinophils # (Manual) 0.5 H PT INR D-Dimer ABG pH 7.492 H POC ABG pCO2 POC ABG pO2 ABG pO2 157.1 H ABG HCO3 32.3 H ABG O2 Saturation ABG Base Excess 8.1 H ABG Hemoglobin 13.2 L ABG Oxyhemoglobin ABG Potassium ABG Glucose Oxyhemoglobin Carboxyhemoglobin Sodium Potassium Chloride Carbon Dioxide BUN Creatinine Glucose POC Glucose 109 H Ferritin Total Bilirubin Alkaline Phosphatase Lactate Dehydrogenase Troponin T C-Reactive Protein Albumin Prealbumin LDL Cholesterol Direct Arterial Blood Glucose Arterial Blood Ionized Calcium 03/01/20 03/01/20 03/01/20 04:33 05:29 12:32 WBC RBC MCV MCH RDW Plt Count Lymph % (Auto) [place] # (Auto) Seg Neutrophils % Seg Neuts % (Manual) Lymphocytes % (Manual) Seg Neutrophils # Seg Neutrophils # Man Lymphocytes # (Manual) Monocytes # (Manual) Eosinophils # (Manual) PT INR D-Dimer ABG pH POC ABG pCO2 POC ABG pO2 ABG pO2 ABG HCO3 ABG O2 Saturation ABG Base Excess ABG Hemoglobin ABG Oxyhemoglobin ABG Potassium ABG Glucose Oxyhemoglobin Carboxyhemoglobin Sodium 146 H Potassium Chloride Carbon Dioxide 32 H BUN Creatinine < 0.2 L Glucose 120 H POC Glucose 120 H 128 H Ferritin Total Bilirubin Alkaline Phosphatase Lactate Dehydrogenase Troponin T C-Reactive Protein Albumin Prealbumin LDL Cholesterol Direct Arterial Blood Glucose Arterial Blood Ionized Calcium 03/01/20 03/01/20 03/02/20 17:38 23:46 06:13 WBC RBC MCV MCH RDW Plt Count Lymph % (Auto) [place] # (Auto) Seg Neutrophils % Seg Neuts % (Manual) Lymphocytes % (Manual) Seg Neutrophils # Seg Neutrophils # Man Lymphocytes # (Manual) Monocytes # (Manual) Eosinophils # (Manual) PT INR D-Dimer ABG pH POC ABG pCO2 POC ABG pO2 ABG pO2 ABG HCO3 ABG O2 Saturation ABG Base Excess ABG Hemoglobin ABG Oxyhemoglobin ABG Potassium ABG Glucose Oxyhemoglobin Carboxyhemoglobin Sodium Potassium Chloride Carbon Dioxide BUN Creatinine Glucose POC Glucose 114 H 121 H 120 H Ferritin Total Bilirubin Alkaline Phosphatase Lactate Dehydrogenase Troponin T C-Reactive Protein Albumin Prealbumin LDL Cholesterol Direct Arterial Blood Glucose Arterial Blood Ionized Calcium 03/02/20 03/02/20 03/03/20 09:47 09:47 10:21 WBC 23.6 H RBC MCV MCH RDW 15.3 H Plt Count 494 H Lymph % (Auto) [place] # (Auto) Seg Neutrophils % Seg Neuts % (Manual) 85.0 H Lymphocytes % (Manual) 6.0 L Seg Neutrophils # Seg Neutrophils # Man 20.1 H Lymphocytes # (Manual) Monocytes # (Manual) 1.7 H Eosinophils # (Manual) PT INR D-Dimer ABG pH POC ABG pCO2 POC ABG pO2 ABG pO2 ABG HCO3 ABG O2 Saturation ABG Base Excess ABG Hemoglobin ABG Oxyhemoglobin ABG Potassium 3.3 L ABG Glucose 158 H Oxyhemoglobin Carboxyhemoglobin Sodium Potassium Chloride Carbon Dioxide BUN Creatinine < 0.2 L Glucose 177 H POC Glucose Ferritin Total Bilirubin Alkaline Phosphatase Lactate Dehydrogenase Troponin T C-Reactive Protein Albumin Prealbumin LDL Cholesterol Direct Arterial Blood Glucose 158 H Arterial Blood Ionized Calcium 03/03/20 03/04/20 03/04/20 21:30 00:00 12:23 WBC RBC MCV MCH RDW Plt Count Lymph % (Auto) [place] # (Auto) Seg Neutrophils % Seg Neuts % (Manual) Lymphocytes % (Manual) Seg Neutrophils # Seg Neutrophils # Man Lymphocytes # (Manual) Monocytes # (Manual) Eosinophils # (Manual) PT INR D-Dimer ABG pH 7.328 L POC ABG pCO2 POC ABG pO2 ABG pO2 68.4 L ABG HCO3 35.0 H ABG O2 Saturation 93.9 L ABG Base Excess 6.8 H ABG Hemoglobin 12.7 L ABG Oxyhemoglobin ABG Potassium ABG Glucose Oxyhemoglobin 91.9 L Carboxyhemoglobin Sodium Potassium Chloride Carbon Dioxide BUN Creatinine Glucose POC Glucose 187 H 163 H Ferritin Total Bilirubin Alkaline Phosphatase Lactate Dehydrogenase Troponin T C-Reactive Protein Albumin Prealbumin LDL Cholesterol Direct Arterial Blood Glucose Arterial Blood Ionized Calcium Chest x-ray: other (none today) Allied health notes reviewed: nursing
[2020-03-04 21:43] LABS: ABG Methemoglobin 0.6 % (0.0-1.5); ABG Oxygen Saturation 96.6 % (95.0-99.0); ABG PH 7.297 pH Units (7.350-7.450); ABG PO2 86.3 mm Hg (80.0-90.0)
[2020-03-04] MEDS: ENOXAPARIN 40 MG/0.4 ML INJ SUB-Q SCH (22:14)
[2020-03-05] MEDS: VANCOMYCIN/NS 1 GM/250 ML 1 GM/250 ML BAG IV SCH ×2 (07:09→18:43)
[2020-03-05] MEDS: CEFEPIME/NS 2 GM/100 ML 2 GM/100 ML BAG IV SCH ×2 (07:10→14:44)
[2020-03-05] MEDS: METOPROLOL TARTRATE 25 MG TAB PO SCH ×2 (09:00→21:59)
[2020-03-05] MEDS: LANSOPRAZOLE 30 MG SOLUTAB FEEDTUBE SCH (09:00)
--- NOTE | 2020-03-05 11:14 | Progress Note ---
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 Patient was on a trilogy machine for breathing 18/11. EMS arrived, patient had O2 sats in the 80s. EMS attempted to place patient on their CPAP machine, liz lopez patient did not tolerate. Patient was admitted to the ICU with diagnosis of acute hypoxic respiratory failure and placed on BiPAP. Patient initially tolerated but later deteriorated with respiratory status. Therefore, patient was intubated on 02/26/2020 at 1500. Patient now on mechanical ventilation in the ICU. --Acute hypoxic hypercapnic respiratory failure; Intubated on mechanical ventilation. Etiology secondary to sepsis, ALS, multifocal pneumonia (Covid negative). --ALS; Chronic --Elevated D-dimers; CTA chest, lower extremity venous Doppler both are negative Lovenox DVT prophylaxis --Bilateral pneumonia; probably community-acquired Continue cefepime and vancomycin ID recommendations appreciated --Sepsis secondary to pneumonia Continue cefepime and vancomycin --Elevated troponin; Serial cardiac enzymes, serial EKGs Echocardiogram, cardiology consult if needed --Hypokalemia; replaced with KCl Monitor levels --Hyponatremia; IV fluids Closely monitor electrolytes --DVT prophylaxis; Lovenox Admit to ICU for close observation 02/25/2020. CTA of the chest reveals no PE but does illustrate the bilateral pneumonia. Doppler ultrasound also negative for DVT. Blood cultures are pending. Await COVID-19 testing. Patient currently requiring BiPAP IPAP 24/EPAP 6 with FiO2 of 25%. Continue O2 and BiPAP as clinically indicated. ID and pulmonary consulted. 02/26/2020. Blood cultures are negative x48 hours and Covid testing negative as well. Continue antibiotics per ID recommendations for community-acquired bilateral pneumonia. Cardiology consultation for elevated troponin. Check echocardiogram. 02/27/2020. Events of yesterday noted with asystole following V. fib arrest. Patient currently on AC mode rate 20, tidal volume 400, FiO2 50% and a PEEP of 6. Follow-up echocardiogram for elevated troponin. Cardiology suspects NSTEMI Type 2 in the setting of acute resp failure. Chest CTA and BLE Dopplers neg. we will discontinue Decadron given the Covid PCR is negative. 02/28/2020. I spoke with the sister Felisa Eli who is the power of commercial attorney regarding advanced directives and she instructed me that she would like to continue with aggressive care at this time. I informed her of the guarded prognosis and high mortality/morbidity and she voiced understanding. Patient currently with AC mode ventilation rate 18, tidal volume 400, FiO2 40% and a PEE P of 6. Continue antibiotics for pneumonia. ID previously consulted. Also consult neurology with regards to ALS. 02/29/2020; patient is intubated and on CPAP patient is alert and oriented. Patient has ALS. Dr. Álvarez spoke with his sister and she wants aggressive care. Continue antibiotics for pneumonia. Neurology consulted for ALS. Prognosis poor 03/01/2020; patient is intubated and on CPAP, patient is alert and oriented. I spoke with his 2 sisters about the management plan. 03/02/2020; patient is intubated and on CPAP. Patient was alert and oriented. I spoke with Dr. mohr and he thinks patient may need mechanical ventilation, likely his disease progressed. Dr. Flowers did debridement this morning. 03/03/2020; patient is intubated and on CPAP, patient was on trilogy and BiPAP at home. Patient has ALS. on spontaneous breathing trial. Patient is alert and oriented but quadriplegic. Patient has severe bilateral pneumonia and is on cefepime and Vanco, ID is following. Patient has sacral decubitus ulcer and debridement was done by Dr. Flowers and there is no osteomyelitis. 03/05. Patient still on broad-spectrum antibiotics. Status post sacral decubitus ulcer debridements-no osteomyelitis. Patient is on AC 25/400/30% PEEP 5. No blood gas results today. The high probability of a clinically significant, sudden or life threatening deterioration of the [cardiac and respiratory] system(s) required my full and direct attention, intervention and personal management. The aggregate critical care time was [34] minutes. This time is in addition to time spent performing reported procedures but includes the following: [x] Data Review and interpretation [x] Patient assessment and monitoring of vital signs [x] Documentation [x] Medication orders and management History Interval history: Patient seen and examined at bedside Intubated Awake on [facility] Hospitalist Physical - Physical exam Narrative exam: VITAL SIGNS: Reviewed. GENERAL: Awake. Intubated HEAD: No signs of head trauma. EYES: Pupils are equal. Extraocular motions intact. EARS: Hearing grossly intact. MOUTH: Oropharynx is normal. NECK: No adenopathy, no JVD. CHEST: Coarse breath sounds bilaterally CARDIAC: Regular rate and rhythm. S1 and S2, without murmurs, gallops, or rubs. VASCULAR: No Edema. Peripheral pulses normal and equal in all extremities. ABDOMEN: Soft, non tender and non distended. No rebound or guarding, and no masses palpated. Bowel Sounds normal. NEUROLOGIC EXAM: Awake SKIN: No obvious lesions - Constitutional Vitals: Temp Pulse Resp BP Pulse Ox 99.1 F 109 H 24 92/58 99 03/05/20 07:29 03/05/20 11:00 03/05/20 11:00 03/05/20 11:00 03/05/20 11:00 HEART Score - HEART Score Troponin: Troponin T 0.034 ng/mL (0.00-0.029) H D 02/24/20 19:35 Results - Labs CBC & Chem 7: 03/02/20 09:47 03/02/20 09:47 Labs: Laboratory Last Values WBC 23.6 K/mm3 (4.5-11.0) H 03/02/20 09:47 RBC 4.75 M/mm3 (3.65-5.03) 03/02/20 09:47 Hgb 13.2 gm/dl (11.8-15.2) 03/02/20 09:47 Hct 40.1 % (35.5-45.6) 03/02/20 09:47 MCV 85 fl (84-94) 03/02/20 09:47 MCH 28 pg (28-32) 03/02/20 09:47 MCHC 33 % (32-34) 03/02/20 09:47 RDW 15.3 % (13.2-15.2) H 03/02/20 09:47 Plt Count 494 K/mm3 (140-440) H 03/02/20 09:47 Lymph % (Auto) 8.7 % (13.4-35.0) L 02/28/20 04:15 Avery % (Auto) 6.6 % (0.0-7.3) 02/28/20 04:15 Eos % (Auto) 0.0 % (0.0-4.3) 02/28/20 04:15 Baso % (Auto) 0.1 % (0.0-1.8) 02/28/20 04:15 Lymph # (Auto) 1.6 K/mm3 (1.2-5.4) 02/28/20 04:15 Avery # (Auto) 1.2 K/mm3 (0.0-0.8) H 02/28/20 04:15 Eos # (Auto) 0.0 K/mm3 (0.0-0.4) 02/28/20 04:15 Baso # (Auto) 0.0 K/mm3 (0.0-0.1) 02/28/20 04:15 Add Manual Diff Complete 03/02/20 09:47 Total Counted 100 03/02/20 09:47 Seg Neutrophils % 84.6 % (40.0-70.0) H 02/28/20 04:15 Seg Neuts % (Manual) 85.0 % (40.0-70.0) H 03/02/20 09:47 Band Neutrophils % 0 % 03/02/20 09:47 Lymphocytes % (Manual) 6.0 % (13.4-35.0) L 03/02/20 09:47 Reactive Lymphs % (Man) 1.0 % 03/02/20 09:47 Monocytes % (Manual) 7.0 % (0.0-7.3) 03/02/20 09:47 Eosinophils % (Manual) 0 % (0.0-4.3) 03/02/20 09:47 Basophils % (Manual) 0 % (0.0-1.8) 03/02/20 09:47 Metamyelocytes % 1.0 % 03/02/20 09:47 Myelocytes % 0 % 03/02/20 09:47 Promyelocytes % 0 % 03/02/20 09:47 Blast Cells % 0 % 03/02/20 09:47 Nucleated RBC % Not Reportable 03/02/20 09:47 Seg Neutrophils # 15.9 K/mm3 (1.8-7.7) H 02/28/20 04:15 Seg Neutrophils # Man 20.1 K/mm3 (1.8-7.7) H 03/02/20 09:47 Band Neutrophils # 0.0 K/mm3 03/02/20 09:47 Lymphocytes # (Manual) 1.4 K/mm3 (1.2-5.4) 03/02/20 09:47 Abs React Lymphs (Man) 0.2 K/mm3 03/02/20 09:47 Monocytes # (Manual) 1.7 K/mm3 (0.0-0.8) H 03/02/20 09:47 Eosinophils # (Manual) 0.0 K/mm3 (0.0-0.4) 03/02/20 09:47 Basophils # (Manual) 0.0 K/mm3 (0.0-0.1) 03/02/20 09:47 Metamyelocytes # 0.2 K/mm3 03/02/20 09:47 Myelocytes # 0.0 K/mm3 03/02/20 09:47 Promyelocytes # 0.0 K/mm3 03/02/20 09:47 Blast Cells # 0.0 K/mm3 03/02/20 09:47 WBC Morphology Not Reportable 03/02/20 09:47 Hypersegmented Neuts Not Reportable 03/02/20 09:47 Hyposegmented Neuts Not Reportable 03/02/20 09:47 Hypogranular Neuts Not Reportable 03/02/20 09:47 Smudge Cells Not Reportable 03/02/20 09:47 Toxic Granulation Not Reportable 03/02/20 09:47 Toxic Vacuolation Not Reportable 03/02/20 09:47 Dohle Bodies Not Reportable 03/02/20 09:47 Pelger-Huet Anomaly Not Reportable 03/02/20 09:47 Robert Rods Not Reportable 03/02/20 09:47 Platelet Estimate Consistent w auto 03/02/20 09:47 Clumped Platelets Not Reportable 03/02/20 09:47 Plt Clumps, EDTA Not Reportable 03/02/20 09:47 Large Platelets Not Reportable 03/02/20 09:47 Giant Platelets Not Reportable 03/02/20 09:47 Platelet Satelliting Not Reportable 03/02/20 09:47 Plt Morphology Comment Not Reportable 03/02/20 09:47 RBC Morphology Normal 03/02/20 09:47 Dimorphic RBCs Not Reportable 03/02/20 09:47 Polychromasia Not Reportable 03/02/20 09:47 Hypochromasia Not Reportable 03/02/20 09:47 Poikilocytosis Not Reportable 03/02/20 09:47 Anisocytosis Not Reportable 03/02/20 09:47 Microcytosis Not Reportable 03/02/20 09:47 Macrocytosis Not Reportable 03/02/20 09:47 Spherocytes Not Reportable 03/02/20 09:47 Pappenheimer Bodies Not Reportable 03/02/20 09:47 Sickle Cells Not Reportable 03/02/20 09:47 Target Cells Not Reportable 03/02/20 09:47 Tear Drop Cells Not Reportable 03/02/20 09:47 Ovalocytes Not Reportable 03/02/20 09:47 Helmet Cells Not Reportable 03/02/20 09:47 [place] Bodies Not Reportable 03/02/20 09:47 Edwards Rings Not Reportable 03/02/20 09:47 Riaz Cells Not Reportable 03/02/20 09:47 Bite Cells Not Reportable 03/02/20 09:47 Crenated Cell Not Reportable 03/02/20 09:47 Elliptocytes Not Reportable 03/02/20 09:47 Acanthocytes (Spur) Not Reportable 03/02/20 09:47 Rouleaux Not Reportable 03/02/20 09:47 Hemoglobin C Crystals Not Reportable 03/02/20 09:47 Schistocytes Not Reportable 03/02/20 09:47 Malaria parasites Not Reportable 03/02/20 09:47 Colton Bodies Not Reportable 03/02/20 09:47 Hem Pathologist Commnt No 03/02/20 09:47 PT 15.6 Sec. (12.2-14.9) H 02/24/20 09:19 INR 1.21 (0.87-1.13) H 02/24/20 09:19 APTT 25.4 Sec. (24.2-36.6) 02/24/20 09:19 D-Dimer 1311.96 ng/mlDDU (0-234) H 02/24/20 09:19 ABG pH 7.297 pH Units (7.350-7.450) L 03/04/20 21:30 POC ABG pCO2 46.9 mmHg (32.0-48.0) 03/03/20 10:21 ABG pCO2 86.0 mm Hg 03/04/20 21:30 POC ABG pO2 83.0 mmHg (83-108) 03/03/20 10:21 ABG pO2 86.3 mm Hg (80.0-90.0) 03/04/20 21:30 POC ABG HCO3 30.7 03/03/20 10: ABG HCO3 41.0 mmol/L (20.0-26.0) H 03/04/20 21:30 ABG O2 Saturation 96.6 % (95.0-99.0) 03/04/20 21:30 ABG O2 Content 17.5 (0.0-44) 03/04/20 21:30 POC ABG Base Excess 5.6 03/03/20 10: ABG Base Excess 11.0 mmol/L (-2.0-3.0) H 03/04/20 21:30 ABG Hemoglobin 13.1 gm/dl (14.0-18.0) L 03/04/20 21:30 ABG Oxyhemoglobin 99.2 (94-98) H 02/26/20 17:00 ABG Carboxyhemoglobin 1.6 % (0.0-5.0) 03/04/20 21:30 ABG Methemoglobin 0.6 % (0.0-1.5) 03/04/20 21:30 ABG Sodium 140.4 mmol/L (136.0-145.0) 03/03/20 10:21 ABG Potassium 3.3 mmol/L (3.40-4.50) L 03/03/20 10:21 ABG Chloride 103.0 mmol/L (98-107) 03/03/20 10:21 ABG Glucose 158 mg/dL (65-95) H 03/03/20 10:21 Oxyhemoglobin 94.5 % (95.0-99.0) L 03/04/20 21:30 Carboxyhemoglobin 0.4 (0.5-1.5) L 02/26/20 17:00 FiO2 30 % 03/04/20 21:30 Sodium 140 mmol/L (137-145) 03/02/20 09:47 Potassium 3.8 mmol/L (3.6-5.0) 03/02/20 09:47 Chloride 101.8 mmol/L (98-107) 03/02/20 09:47 Carbon Dioxide 29 mmol/L (22-30) 03/02/20 09:47 Anion Gap 13 mmol/L 03/02/20 09:47 BUN 15 mg/dL (9-20) 03/02/20 09:47 Creatinine < 0.2 mg/dL (0.8-1.3) L 03/02/20 09:47 Estimated GFR > 60 ml/min 03/02/20 09:47 BUN/Creatinine Ratio 75 % 03/02/20 09:47 Glucose 177 mg/dL (75-100) H 03/02/20 09:47 POC Glucose 127 mg/dL (70-105) H 03/05/20 06:02 Lactic Acid 1.00 mmol/L (0.7-2.0) 02/24/20 12:07 Calcium 8.5 mg/dL (8.4-10.2) 03/02/20 09:47 Magnesium 2.30 mg/dL (1.7-2.3) 02/25/20 04:00 Ferritin 1715.0 ng/mL (30.0-300.0) H 02/24/20 10:01 Total Bilirubin 0.80 mg/dL (0.1-1.2) 02/25/20 04:00 AST 17 units/L (5-40) 02/25/20 04:00 ALT 21 units/L (7-56) 02/25/20 04:00 Alkaline Phosphatase 105 units/L (35-129) 02/25/20 04:00 Lactate Dehydrogenase 303 units/L (91-180) H 02/24/20 09:19 Total Creatine Kinase 101 units/L (55-170) 02/24/20 19:35 CK-MB (CK-2) 3.5 ng/mL (0.0-4.0) 02/24/20 19:35 CK-MB (CK-2) Rel Index 3.4 (0-4) 02/24/20 19:35 Troponin T 0.034 ng/mL (0.00-0.029) H D 02/24/20 19:35 C-Reactive Protein 4.70 mg/dL (0.00-1.30) H 02/28/20 11:05 NT-Pro-B Natriuret Pep 48.30 pg/mL (0-900) 02/24/20 09:19 Total Protein 6.5 g/dL (6.3-8.2) 02/25/20 04:00 Albumin 3.5 g/dL (3.9-5) L 02/25/20 04:00 Albumin/Globulin Ratio 1.2 % 02/25/20 04:00 Prealbumin 0.090 g/L (0.200-0.400) L 02/28/20 12:54 Triglycerides 60 mg/dL (2-149) 02/24/20 09:19 Cholesterol 104 mg/dL (50-199) 02/24/20 09:19 LDL Cholesterol Direct 41 mg/dL (50-130) L 02/24/20 09:19 HDL Cholesterol 45 mg/dL (40-59) 02/24/20 09:19 Cholesterol/HDL Ratio 2.31 % 02/24/20 09:19 Procalcitonin 1.68 ng/mL (<0.15) 02/28/20 14:51 Arterial Blood Glucose 158 mg/dL (65-95) H 03/03/20 10:21 Arterial Blood Ionized Calcium 4.7 mg/dL (4.6-5.3) 03/03/20 10:21 Urine Color Yellow (Yellow) 03/03/20 18:00 Urine Turbidity Clear (Clear) 03/03/20 18:00 Urine pH 6.0 (5.0-7.0) 03/03/20 18:00 Ur Specific [place] 1.017 (1.003-1.030) 03/03/20 18:00 Urine Protein <15 mg/dl mg/dL (Negative) 03/03/20 18:00 Urine Glucose (UA) Neg mg/dL (Negative) 03/03/20 18:00 Urine Ketones Neg mg/dL (Negative) 03/03/20 18:00 Urine Blood Sm (Negative) 03/03/20 18:00 Urine Nitrite Neg (Negative) 03/03/20 18:00 Urine Bilirubin Neg (Negative) 03/03/20 18:00 Urine Urobilinogen < 2.0 mg/dL (<2.0) 03/03/20 18:00 Ur Leukocyte Esterase Neg (Negative) 03/03/20 18:00 Urine WBC (Auto) 4.0 /HPF (0.0-6.0) 03/03/20 18:00 Urine RBC (Auto) 10.0 /HPF (0.0-6.0) 03/03/20 18:00 Urine Bacteria (Auto) 1+ /HPF (Negative) 03/03/20 18:00 Urine Mucus Few /HPF 03/03/20 18:00 Urine Yeast (Budding) 2+ /HPF 03/03/20 18:00 Vancomycin Trough 8.0 ug/mL (5.0-20.0) 03/04/20 08:59 Coronavirus (PCR) Negative (Negative) 02/25/20 09:03 Microbiology: Microbiology 03/03/20 16:57 Tracheal Aspirate Sputum Culture - Preliminary 03/03/20 15:08 Peripheral/Venous Blood Culture - Preliminary NO GROWTH AFTER 24 HOURS 03/03/20 15:08 Peripheral/Venous Blood Culture - Preliminary NO GROWTH AFTER 24 HOURS - Diagnostic Impressions Diagnostic Impressions: Echocardiogram 02/26/20 10:41 Transthoracic Echocardiogram Indication: Elevated Trop BP: 116/75 HR: 85 Conclusions *Global left ventricular wall motion and contractility are within normal limits. *The estimated ejection fraction is 50-55%. *Abnormal left ventricular diastolic filling is observed, consistent with impaired relaxation. *There is no pericardial effusion. Findings Left Ventricle: The left ventricular chamber size is normal. Global left ventricular wall motion and contractility are within normal limits. Global left ventricular systolic function is normal. The estimated ejection fraction is 50-55%. Abnormal left ventricular diastolic filling is observed, consistent with impaired relaxation. Left Atrium: The left atrial chamber size is normal. Right Ventricle: The right ventricular cavity size is normal. Right Atrium: The right atrial cavity size is normal. Aortic Valve: Mild aortic leaflet calcification is visualized. There is no evidence of aortic regurgitation. Mitral Valve: The mitral valve leaflets are mildly thickened. There is no evidence of mitral regurgitation. Tricuspid Valve: The tricuspid valve leaflets are normal. There is trace tricuspid regurgitation. The right ventricular systolic pressure is calculated at 29 mmHg. Pulmonic Valve: The pulmonic valve is not well visualized. Pericardium: There is no pericardial effusion. Aorta: The aorta appears normal. Venous: The inferior vena cava is dilated. There is less than 50% respiratory change in the inferior vena cava dimension. Measurements Chambers 2D Name Value Normal Range IVSd (2D) 0.97 cm (0.6 - 1.1) LVPWd (2D) 0.93 cm (0.6 - 1.1) LVIDd (2D) 4 cm (3.7 - 5.6) LVIDs (2D) 2.73 cm (2 - 3.8) LV FS (2D) 31.67 % - EF Teichholz (2D) 60.23 % - Ao root diameter (2D) 3.51 cm (2 - 3.7) Volumes/Mass Name Value Normal Range LA ESV SP 4CH (A/L) 8.43 ml - LA ESV SP 2CH (A/L) 18.89 ml - LA ESV BP (A/L) 13.02 ml - LA ESV BP (A/L) index 8.8 ml/m2 - LA ESV SP 4CH (MOD) 7.22 ml - LA ESV SP 2CH (MOD) 18.15 ml - LA ESV BP (MOD) 11.47 ml - LA ESV BP (MOD) index 7.75 ml/m2 - Diastolic/Systolic Function Name Value Normal Range MV E-wave Vmax 0.51 m/sec - MV deceleration time 180.22 msec - MV A-wave Vmax 0.62 m/sec - MV E:A ratio 0.82 ratio - Aortic Valve Name Value Normal Range AV Vmax 1.17 m/sec - AV VTI 19.71 cm - AV peak gradient 5.44 mmHg - AV mean gradient 3.38 mmHg - LVOT diameter 2.26 cm - LVOT Vmax 0.89 m/sec - LVOT VTI 13.72 cm - LVOT peak gradient 3.17 mmHg - LVOT mean gradient 1.67 mmHg - SV LVOT 55.03 ml - SHARAD (continuity Vmax) 3.06 cm2 - SHARAD (continuity VTI) 2.79 cm2 - Tricuspid Valve Name Value Normal Range TR Vmax 2.3 m/sec - TR peak gradient 21 mmHg - RAP 8 mmHg - RVSP 29 mmHg - IVC diameter 2.59 cm (1.2 - 2.3) Pulmonic Valve/Qp:Qs Name Value Normal Range PV acceleration time 68.51 msec - Reardon/IV: Voiding Method Condom Catheter IV Catheter Type [Left Wrist] Peripheral IV IV Catheter Type [Right INT / Saline Lock Forearm] IV Catheter Type [Right Triple Lumen Cath Internal Jugular] IV Catheter Type [Left Forearm INT / Saline Lock ] IV Catheter Type [Right Triple Lumen Cath Femoral] IV Catheter Type [Right INT / Saline Lock Antecubital] Active Medications - Current Medications Current Medications: Generic Name Dose Route Start Last Admin Trade Name Freq PRN Reason Stop Dose Admin Acetaminophen 650 mg 02/24/20 15:13 02/28/20 09:18 Tylenol PO 650 mg Q4H PRN Administration Pain, Mild (1-3) Albuterol 2.5 mg 02/24/20 15:13 Proventil IH Q4HRT PRN Shortness Of Breath Lipase/Protease/Amylase 1 each 02/26/20 11:[address] 10,500 Unit FEEDTUBE PRN PRN For Clogged Feeding Tube Enoxaparin Sodium 40 mg 02/24/20 22:00 03/04/20 22:14 Enoxaparin SUB-Q 40 mg QDAY@2200 ALISA Administration Protocol Dopamine HCl/Dextrose 800 mg in 250 mls @ 3.338 mls/hr 02/26/20 16:00 02/26/20 17:11 Intropin Drip 800 Mg/D5w 250 Ml IV 0 mcg/kg/min TITR ALISA 0 mls/hr Titration Protocol 2 MCG/KG/MIN Cefepime HCl 2 gm in 100 mls @ 200 mls/hr 03/01/20 14:00 03/05/20 07:10 Cefepime/Ns 2 Gm/100 Ml IV 03/05/20 14:59 200 mls/hr Q8HR ALISA Administration Protocol Vancomycin HCl 1 gm in 250 mls @ 166.667 mls/hr 03/02/20 04:00 03/05/20 07:09 Vancomycin/Ns 1 Gm/250 Ml IV 03/05/20 18:00 166.667 mls/hr Q12H ALISA Administration Lansoprazole 30 mg 02/28/20 10:00 03/05/20 09:00 Prevacid Solutab FEEDTUBE 30 mg QDAY ALISA Administration Metoprolol Tartrate 12.5 mg 02/24/20 22:00 03/05/20 09:00 Metoprolol PO 12.5 mg BID ALISA Administration Morphine Sulfate 2 mg 02/29/20 16:42 03/04/20 15:55 Morphine IV 2 mg Q4H PRN Administration Pain, Moderate (4-6) Scopolamine 1 each 03/03/20 14:00 03/03/20 14:20 Transderm-Scop TD 1 each Q3D ALISA Administration Simple Syrup 15 ml 02/26/20 11:16 Simple Syrup FEEDTUBE PRN PRN Hypoglycemia Simple Syrup 30 ml 02/26/20 11:16 Simple Syrup FEEDTUBE PRN PRN Hypoglycemia Sodium Bicarbonate 325 mg 02/26/20 11:16 Sodium Bicarbonate FEEDTUBE PRN PRN For Clogged Feeding Tube Nutrition/Malnutrition Assess - Dietary Evaluation Nutrition/Malnutrition Findings: Nutrition Notes Start: 02/26/20 10:40 Freq: Status: Active Protocol: Document 03/02/20 12:03 VALDO (Rec: 03/02/20 13:37 VALDO [id number]) Co-Sign 03/02/20 12:03 MK Nutrition Notes Initial or Follow up Reassessment Current Diagnosis Decubitus(Pressure Ulcer), Sepsis,Respiratory Failure Other Pertinent Diagnosis COVID-19 (-), ALS, pneumonia, Hip/buttock PU Current Diet Vital AF 1.2 at 75ml/hr (goal rate) Labs/Tests Na 146 Pertinent Medications Cephalosporin Vancomycin Height 6 ft Weight 64.9 kg Usual Body Weight 65.91 kg [place] Body Weight (kg) 80.90 BMI 19.4 Weight Status Underweight Subjective/Other Information F/u TF tolerance and Will. Delivered Will to RN. Pt tolerating TF at goal rate. Percent of energy/protein needs met: 95%/100% Burn Absent Trauma Absent GI Symptoms None Skin Integrity/Comment Pressure Ulcer Stage 2 Current % PO Negligible Minimum of two criteria Yes Body Fat Depletion Mild depletion (non-severe) Muscle Mass Mild Depletion (non-severe) Reduced [employer] Strength Measurably Reduced (severe) #3 Nutrition Diagnosis Malnutrition Diagnosis Progress(for reassessment Continues documentation) #2 Nutrition Diagnosis Inadequate oral intake Diagnosis Progress(for reassessment Continues documentation) #1 Nutrition Diagnosis Increased nutrient needs ( specify in comment below) Diagnosis Progress(for reassessment Continues documentation) Is patient on ventilator? Yes Is Patient Ambulatory and/or Out of Bed No [facility] 1807.284 Kcal/Kg value to use for calculation 35 Approximate Energy Requirements Using 2272 kcal/Kg Calculation Used for Recommendations Kcal/kg Additional Notes Protein 1.2-1.5-134g Fluid: 1ml/kcal Nutrition Intervention Change Diet Order: Continue TF Nutrition Support: Vital AF 1.2 at 75ml/hr. Flush 200ml q4h Kcal 2,160 Protein (gm) 135 Fluid (mL) 1,460 Add Supplement/Snack (indicate name/kcal Will BID /protein ) Provides kCal: 190 Provides Protein (gm) 5 Goal #1 Meet at least 80% of energy and protein needs via TF Goal #2 Wound healing Anticipated Discharge Needs: Unable to determine at this time Follow-Up By: 03/08/20 Additional Comments F/u stable TF and Will adm
--- NOTE | 2020-03-05 15:57 | Progress Note ---
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 Respiratory Failure Severe Sepsis with Shock Bilateral Pneumonia (Possible aspiration) History of ALS on Trilogy Oropharyngeal Dysphagia PUI-COVID Acute toxic metabolic encephalopathy Elevated D-dimer Elevated troponin possibly type 2 ischemia - General Surgery consult placed for tracheostomy - keep set rate at 12/minb (increased to 25/min earlier) - continue care as below otherwise; - continue Scopolamine patch for secretion control - continue Daily SAT and SBT assessment as tolerated - wean supplemental oxygen for target O2 sat's > 92% acutely - bronchodilators with pulmonary hygiene per RT - VAP bundle addressed - continue lung protective strategies - continue bronchodilators with pulmonary hygiene per RT - wean per pulmonary driven protocols otherwise - sedation prn for target RASS 0 to -1 - empiric antiinfectives per ID rec's (Rocephin and Zithromax) - COVID-19 isolation (Airborne & Contact) - empiric Dexamethasonme - follow COVID-19 test results - trend inflammatory markers to aid clinical decision making - enteral nutrition at goal rate as tolerated - Aspiration precautions - accuchecks with glycemic control per SSI (While critically ill target blood glucose of 140-180 mg/dL; avoid hypoglycemia) - avoid nephrotoxins, renally dose all medications - avoid benzodiazepine's, reduce the possibility of delirium - prn analgesia per CPOT score - Maintenance of sleep-wake cycle, avoid delirium - aspiration precautions - G.I. & VTE prophylaxis - PT/OT/ROM exercises - mobility protocols for pressure ulcer prophylaxis - Monitor hemodynamics closely - continue other care per attending / other consultants - discharge planning ongoing concurrently .... Re-evaluate in am & prn CONDITION: CRITICAL PROGNOSIS: GUARDED CODE STATUS: FULL CODE The high probability of a clinically significant, sudden or life-threatening deterioration of the [respiratory, cardiovascular & neurologic] system(s) required my full and direct attention, intervention and personal management. The aggregate critical care time was [36] minutes without overlap. Time includes spent on; [x] Data Review and interpretation [x] Patient assessment and monitoring of vital signs [x] Documentation [x] Medication orders and management Subjective Date of service: 03/05/20 Principal diagnosis: Ac on Ch Hypercapnic & hypoxemic Resp Failure; Severe Sepsis; Jamar PNA; ALS Interval history: Patient is seen today for: Acute on Chronic Hypercapnic & hypoxemic Respiratory Failure; Severe Sepsis with Shock; Bilateral Pneumonia (Possible aspiration); History of ALS on Trilogy; PUI-COVID; Acute toxic metabolic encephalopathy Seen and examined at bedside; 24hour events reviewed; nursing and respiratory care staff consulted; no adverse overnight events reported to me; resting in bed; remains on MVS; failed SBT with hypercapnia and back on full support; discussed utility of a tracheostomy tube with him and he wants to get one done nehemiah Objective Vital Signs - 12hr 03/05/20 03/05/20 03/05/20 04:00 04:16 04:30 Temperature 99.5 F Pulse Rate 106 H 104 H 99 H Pulse Rate [ 93 H From Monitor] Respiratory 18 18 19 Rate Blood Pressure 123/76 123/76 134/79 O2 Sat by Pulse 98 98 98 Oximetry 03/05/20 03/05/20 03/05/20 04:46 04:49 05:00 Temperature Pulse Rate 98 H 96 H 96 H Pulse Rate [ From Monitor] Respiratory 18 18 Rate Blood Pressure 134/79 134/79 139/76 O2 Sat by Pulse 98 97 98 Oximetry 03/05/20 03/05/20 03/05/20 05:16 05:30 05:46 Temperature Pulse Rate 96 H 93 H 90 Pulse Rate [ From Monitor] Respiratory 17 14 17 Rate Blood Pressure 139/76 146/79 146/79 O2 Sat by Pulse 98 97 98 Oximetry 03/05/20 03/05/20 03/05/20 06:00 06:16 06:30 Temperature Pulse Rate 99 H 89 95 H Pulse Rate [ From Monitor] Respiratory 17 18 18 Rate Blood Pressure 138/82 138/82 124/72 O2 Sat by Pulse 98 98 98 Oximetry 03/05/20 03/05/20 03/05/20 06:46 07:00 07:16 Temperature Pulse Rate 95 H 96 H 94 H Pulse Rate [ From Monitor] Respiratory 15 19 17 Rate Blood Pressure 124/72 136/87 136/87 O2 Sat by Pulse 98 98 98 Oximetry 03/05/20 03/05/20 03/05/20 07:29 07:30 07:46 Temperature 99.1 F Pulse Rate 104 H 92 H Pulse Rate [ From Monitor] Respiratory 14 18 Rate Blood Pressure 144/89 144/89 O2 Sat by Pulse 98 98 Oximetry 03/05/20 03/05/20 03/05/20 08:00 08:16 08:30 Temperature Pulse Rate 111 H 94 H 110 H Pulse Rate [ 100 H From Monitor] Respiratory 15 14 23 Rate Blood Pressure 102/63 123/75 102/63 O2 Sat by Pulse 98 98 98 Oximetry 03/05/20 03/05/20 03/05/20 08:46 09:00 09:16 Temperature Pulse Rate 112 H 110 H 101 H Pulse Rate [ From Monitor] Respiratory 34 H 20 26 H Rate Blood Pressure 102/63 101/64 101/64 O2 Sat by Pulse 98 96 96 Oximetry 03/05/20 03/05/20 03/05/20 09:30 09:46 10:00 Temperature Pulse Rate 99 H 109 H 106 H Pulse Rate [ From Monitor] Respiratory 25 H 45 H 29 H Rate Blood Pressure 111/70 101/64 98/65 O2 Sat by Pulse 96 95 98 Oximetry 03/05/20 03/05/20 03/05/20 10:16 10:30 10:46 Temperature Pulse Rate 103 H 106 H 107 H Pulse Rate [ From Monitor] Respiratory 36 H 28 H 26 H Rate Blood Pressure 98/65 107/68 107/68 O2 Sat by Pulse 98 98 99 Oximetry 03/05/20 03/05/20 03/05/20 11:00 11:16 11:30 Temperature Pulse Rate 109 H 112 H 106 H Pulse Rate [ From Monitor] Respiratory 24 25 H 25 H Rate Blood Pressure 92/58 92/58 86/62 O2 Sat by Pulse 99 99 99 Oximetry 03/05/20 03/05/20 03/05/20 11:40 11:46 12:00 Temperature 98.2 F Pulse Rate 108 H 109 H 114 H Pulse Rate [ 108 H From Monitor] Respiratory 25 H 25 H Rate Blood Pressure 82/61 86/62 82/61 O2 Sat by Pulse 98 99 97 Oximetry 03/05/20 03/05/20 03/05/20 12:16 12:30 12:46 Temperature Pulse Rate 111 H 108 H 113 H Pulse Rate [ From Monitor] Respiratory 25 H 25 H 25 H Rate Blood Pressure 86/62 107/73 82/61 O2 Sat by Pulse 98 95 95 Oximetry 03/05/20 03/05/20 03/05/20 13:00 13:16 13:30 Temperature Pulse Rate 117 H 110 H 111 H Pulse Rate [ From Monitor] Respiratory 25 H 25 H 25 H Rate Blood Pressure 98/64 98/64 105/66 O2 Sat by Pulse 94 95 97 Oximetry 03/05/20 03/05/20 03/05/20 13:46 14:00 14:16 Temperature Pulse Rate 110 H 114 H 116 H Pulse Rate [ From Monitor] Respiratory 25 H 25 H 26 H Rate Blood Pressure 105/66 95/64 95/64 O2 Sat by Pulse 96 96 97 Oximetry 03/05/20 03/05/20 03/05/20 14:30 14:46 15:00 Temperature Pulse Rate 115 H 113 H 119 H Pulse Rate [ From Monitor] Respiratory 25 H 25 H 25 H Rate Blood Pressure 87/56 90/59 98/67 O2 Sat by Pulse 96 96 93 Oximetry 03/05/20 03/05/20 15:16 15:21 Temperature Pulse Rate 114 H 113 H Pulse Rate [ From Monitor] Respiratory 25 H Rate Blood Pressure 98/67 90/59 O2 Sat by Pulse 92 93 Oximetry Constitutional: no acute distress, other (thin middle aged male with mildly increased respiratory effort at rest on MVS) Eyes: non-icteric ENT: oropharynx moist, other (ETT 23 cm LYNETTE) Neck: supple, no lymphadenopathy, no JVD Effort: mildly labored Ascultation: Bilateral: diminished breath sounds, rhonchi (scant in bases) Percussion: Bilateral: not dull Cardiovascular: regular rate and rhythm, other (S1,S2, no murmurs) Gastrointestinal: normoactive bowel sounds, soft, non-tender, non-distended Integumentary: normal, decubitus ulcer (sacral / gluteal) Extremities: no cyanosis, no edema, pulses normal, other (atrophic looking limbs) Neurologic: pupils equal and round, other (motor strength in extremities 1-2/5) Psychiatric: mood appropriate, affect normal CBC and BMP: 03/02/20 09:47 03/02/20 09:47 ABG, PT/INR, D-dimer: ABG ABG pH 7.297 pH Units (7.350-7.450) L 03/04/20 21:30 POC ABG pCO2 46.9 mmHg (32.0-48.0) 03/03/20 10:21 ABG pCO2 86.0 mm Hg 03/04/20 21:30 POC ABG pO2 83.0 mmHg (83-108) 03/03/20 10:21 ABG pO2 86.3 mm Hg (80.0-90.0) 03/04/20 21:30 POC ABG HCO3 30.7 03/03/20 10:21 ABG O2 Saturation 96.6 % (95.0-99.0) 03/04/20 21:30 PT/INR, D-dimer PT 15.6 Sec. (12.2-14.9) H 02/24/20 09:19 INR 1.21 (0.87-1.13) H 02/24/20 09:19 D-Dimer 1311.96 ng/mlDDU (0-234) H 02/24/20 09:19 Abnormal lab findings: Abnormal Labs 02/24/20 02/24/20 02/24/20 09:19 09:19 09:19 WBC 20.2 H RBC 5.05 H MCV MCH RDW 15.3 H Plt Count Lymph % (Auto) Wells # (Auto) Seg Neutrophils % Seg Neuts % (Manual) 86.0 H Lymphocytes % (Manual) 1.0 L Seg Neutrophils # Seg Neutrophils # Man 17.4 H Lymphocytes # (Manual) 0.2 L Monocytes # (Manual) Eosinophils # (Manual) PT 15.6 H INR 1.21 H D-Dimer 1311.96 H ABG pH POC ABG pCO2 POC ABG pO2 ABG pO2 ABG HCO3 ABG O2 Saturation ABG Base Excess ABG Hemoglobin ABG Oxyhemoglobin ABG Potassium ABG Glucose Oxyhemoglobin Carboxyhemoglobin Sodium 135 L Potassium 3.2 L Chloride 92.2 L Carbon Dioxide BUN 6 L Creatinine < 0.2 L Glucose 124 H POC Glucose Ferritin Total Bilirubin 2.30 H Alkaline Phosphatase 132 H Lactate Dehydrogenase Troponin T 0.080 H C-Reactive Protein Albumin 3.6 L Prealbumin LDL Cholesterol Direct 41 L Arterial Blood Glucose Arterial Blood Ionized Calcium 02/24/20 02/24/20 02/24/20 09:19 09:58 10:01 WBC RBC MCV MCH RDW Plt Count Lymph % (Auto) Wells # (Auto) Seg Neutrophils % Seg Neuts % (Manual) Lymphocytes % (Manual) Seg Neutrophils # Seg Neutrophils # Man Lymphocytes # (Manual) Monocytes # (Manual) Eosinophils # (Manual) PT INR D-Dimer ABG pH 7.176 L* POC ABG pCO2 POC ABG pO2 ABG pO2 91.2 H ABG HCO3 ABG O2 Saturation ABG Base Excess -4.6 L ABG Hemoglobin ABG Oxyhemoglobin ABG Potassium ABG Glucose Oxyhemoglobin 92.6 L Carboxyhemoglobin Sodium Potassium Chloride Carbon Dioxide BUN Creatinine Glucose POC Glucose Ferritin 1715.0 H Total Bilirubin Alkaline Phosphatase Lactate Dehydrogenase 303 H Troponin T C-Reactive Protein 26.10 H Albumin Prealbumin LDL Cholesterol Direct Arterial Blood Glucose Arterial Blood Ionized Calcium 02/24/20 02/24/20 02/24/20 11:52 13:45 19:35 WBC RBC MCV MCH RDW Plt Count Lymph % (Auto) Wells # (Auto) Seg Neutrophils % Seg Neuts % (Manual) Lymphocytes % (Manual) Seg Neutrophils # Seg Neutrophils # Man Lymphocytes # (Manual) Monocytes # (Manual) Eosinophils # (Manual) PT INR D-Dimer ABG pH 7.051 L* 7.300 L POC ABG pCO2 POC ABG pO2 ABG pO2 94.7 H 75.1 L ABG HCO3 18.0 L ABG O2 Saturation 93.5 L ABG Base Excess -6.8 L -7.8 L ABG Hemoglobin 13.2 L 11.9 L ABG Oxyhemoglobin ABG Potassium ABG Glucose Oxyhemoglobin 91.0 L 92.7 L Carboxyhemoglobin Sodium Potassium Chloride Carbon Dioxide BUN Creatinine Glucose POC Glucose Ferritin Total Bilirubin Alkaline Phosphatase Lactate Dehydrogenase Troponin T 0.034 H D C-Reactive Protein Albumin Prealbumin LDL Cholesterol Direct Arterial Blood Glucose Arterial Blood Ionized Calcium 02/25/20 02/25/20 02/25/20 04:00 04:00 12:26 WBC 22.9 H RBC MCV 83 L MCH 27 L RDW Plt Count 468 H Lymph % (Auto) Wells # (Auto) Seg Neutrophils % Seg Neuts % (Manual) 89.0 H Lymphocytes % (Manual) 7.0 L Seg Neutrophils # Seg Neutrophils # Man 20.4 H Lymphocytes # (Manual) Monocytes # (Manual) Eosinophils # (Manual) PT INR D-Dimer ABG pH POC ABG pCO2 POC ABG pO2 ABG pO2 ABG HCO3 ABG O2 Saturation ABG Base Excess ABG Hemoglobin ABG Oxyhemoglobin ABG Potassium 2.6 L ABG Glucose 142 H Oxyhemoglobin Carboxyhemoglobin Sodium Potassium 3.2 L Chloride Carbon Dioxide 18 L BUN Creatinine 0.2 L Glucose 114 H POC Glucose Ferritin Total Bilirubin Alkaline Phosphatase Lactate Dehydrogenase Troponin T C-Reactive Protein Albumin 3.5 L Prealbumin LDL Cholesterol Direct Arterial Blood Glucose 142 H Arterial Blood Ionized Calcium 02/26/20 02/26/20 02/26/20 15:58 17:00 23:43 WBC RBC MCV MCH RDW Plt Count Lymph % (Auto) Wells # (Auto) Seg Neutrophils % Seg Neuts % (Manual) Lymphocytes % (Manual) Seg Neutrophils # Seg Neutrophils # Man Lymphocytes # (Manual) Monocytes # (Manual) Eosinophils # (Manual) PT INR D-Dimer ABG pH 7.502 H POC ABG pCO2 POC ABG pO2 213.6 H ABG pO2 ABG HCO3 ABG O2 Saturation ABG Base Excess ABG Hemoglobin ABG Oxyhemoglobin 99.2 H ABG Potassium 2.9 L ABG Glucose 160 H Oxyhemoglobin Carboxyhemoglobin 0.4 L Sodium Potassium Chloride Carbon Dioxide BUN Creatinine Glucose POC Glucose 189 H 120 H Ferritin Total Bilirubin Alkaline Phosphatase Lactate Dehydrogenase Troponin T C-Reactive Protein Albumin Prealbumin LDL Cholesterol Direct Arterial Blood Glucose 160 H Arterial Blood Ionized Calcium 4.5 L 02/27/20 02/27/20 02/27/20 05:00 07:04 17:45 WBC RBC MCV MCH RDW Plt Count Lymph % (Auto) Wells # (Auto) Seg Neutrophils % Seg Neuts % (Manual) Lymphocytes % (Manual) Seg Neutrophils # Seg Neutrophils # Man Lymphocytes # (Manual) Monocytes # (Manual) Eosinophils # (Manual) PT INR D-Dimer ABG pH 7.524 H POC ABG pCO2 POC ABG pO2 ABG pO2 ABG HCO3 ABG O2 Saturation ABG Base Excess ABG Hemoglobin ABG Oxyhemoglobin ABG Potassium 3.0 L ABG Glucose 143 H Oxyhemoglobin Carboxyhemoglobin Sodium Potassium Chloride Carbon Dioxide BUN Creatinine Glucose POC Glucose 154 H 175 H Ferritin Total Bilirubin Alkaline Phosphatase Lactate Dehydrogenase Troponin T C-Reactive Protein Albumin Prealbumin LDL Cholesterol Direct Arterial Blood Glucose 143 H Arterial Blood Ionized Calcium 02/27/20 02/28/20 02/28/20 Unknown 00:21 04:15 WBC 18.7 H RBC MCV MCH RDW Plt Count Lymph % (Auto) 8.7 L Wells # (Auto) 1.2 H Seg Neutrophils % 84.6 H Seg Neuts % (Manual) Lymphocytes % (Manual) Seg Neutrophils # 15.9 H Seg Neutrophils # Man Lymphocytes # (Manual) Monocytes # (Manual) Eosinophils # (Manual) PT INR D-Dimer ABG pH POC ABG pCO2 POC ABG pO2 ABG pO2 ABG HCO3 ABG O2 Saturation ABG Base Excess ABG Hemoglobin ABG Oxyhemoglobin ABG Potassium ABG Glucose Oxyhemoglobin Carboxyhemoglobin Sodium Potassium 2.9 L* Chloride Carbon Dioxide 33 H D BUN Creatinine < 0.2 L Glucose 157 H POC Glucose 134 H Ferritin Total Bilirubin Alkaline Phosphatase Lactate Dehydrogenase Troponin T C-Reactive Protein Albumin Prealbumin LDL Cholesterol Direct Arterial Blood Glucose Arterial Blood Ionized Calcium 02/28/20 02/28/20 02/28/20 04:15 05:16 05:39 WBC RBC MCV MCH RDW Plt Count Lymph % (Auto) Wells # (Auto) Seg Neutrophils % Seg Neuts % (Manual) Lymphocytes % (Manual) Seg Neutrophils # Seg Neutrophils # Man Lymphocytes # (Manual) Monocytes # (Manual) Eosinophils # (Manual) PT INR D-Dimer ABG pH POC ABG pCO2 POC ABG pO2 ABG pO2 142.9 H ABG HCO3 34.1 H ABG O2 Saturation ABG Base Excess 8.3 H ABG Hemoglobin ABG Oxyhemoglobin ABG Potassium ABG Glucose Oxyhemoglobin Carboxyhemoglobin Sodium 151 H Potassium Chloride Carbon Dioxide 32 H BUN Creatinine 0.2 L Glucose 167 H POC Glucose 138 H Ferritin Total Bilirubin Alkaline Phosphatase Lactate Dehydrogenase Troponin T C-Reactive Protein Albumin Prealbumin LDL Cholesterol Direct Arterial Blood Glucose Arterial Blood Ionized Calcium 02/28/20 02/28/20 02/28/20 11:05 11:33 12:54 WBC RBC MCV MCH RDW Plt Count Lymph % (Auto) Wells # (Auto) Seg Neutrophils % Seg Neuts % (Manual) Lymphocytes % (Manual) Seg Neutrophils # Seg Neutrophils # Man Lymphocytes # (Manual) Monocytes # (Manual) Eosinophils # (Manual) PT INR D-Dimer ABG pH POC ABG pCO2 POC ABG pO2 ABG pO2 ABG HCO3 ABG O2 Saturation ABG Base Excess ABG Hemoglobin ABG Oxyhemoglobin ABG Potassium ABG Glucose Oxyhemoglobin Carboxyhemoglobin Sodium Potassium Chloride Carbon Dioxide BUN Creatinine Glucose POC Glucose 160 H Ferritin Total Bilirubin Alkaline Phosphatase Lactate Dehydrogenase Troponin T C-Reactive Protein 4.70 H Albumin Prealbumin 0.090 L LDL Cholesterol Direct Arterial Blood Glucose Arterial Blood Ionized Calcium 02/28/20 02/29/20 02/29/20 17:34 00:44 04:05 WBC 19.6 H RBC MCV MCH 27 L RDW 15.4 H Plt Count Lymph % (Auto) Wells # (Auto) Seg Neutrophils % Seg Neuts % (Manual) 86.0 H Lymphocytes % (Manual) 7.0 L Seg Neutrophils # Seg Neutrophils # Man 16.9 H Lymphocytes # (Manual) Monocytes # (Manual) 1.2 H Eosinophils # (Manual) PT INR D-Dimer ABG pH POC ABG pCO2 POC ABG pO2 ABG pO2 ABG HCO3 ABG O2 Saturation ABG Base Excess ABG Hemoglobin ABG Oxyhemoglobin ABG Potassium ABG Glucose Oxyhemoglobin Carboxyhemoglobin Sodium Potassium Chloride Carbon Dioxide BUN Creatinine Glucose POC Glucose 136 H 156 H Ferritin Total Bilirubin Alkaline Phosphatase Lactate Dehydrogenase Troponin T C-Reactive Protein Albumin Prealbumin LDL Cholesterol Direct Arterial Blood Glucose Arterial Blood Ionized Calcium 02/29/20 02/29/20 02/29/20 04:05 05:14 05:33 WBC RBC MCV MCH RDW Plt Count Lymph % (Auto) Wells # (Auto) Seg Neutrophils % Seg Neuts % (Manual) Lymphocytes % (Manual) Seg Neutrophils # Seg Neutrophils # Man Lymphocytes # (Manual) Monocytes # (Manual) Eosinophils # (Manual) PT INR D-Dimer ABG pH POC ABG pCO2 54.3 H POC ABG pO2 124.8 H ABG pO2 ABG HCO3 ABG O2 Saturation ABG Base Excess ABG Hemoglobin ABG Oxyhemoglobin ABG Potassium ABG Glucose 185 H Oxyhemoglobin Carboxyhemoglobin Sodium 148 H Potassium Chloride Carbon Dioxide 33 H BUN Creatinine < 0.2 L Glucose 173 H POC Glucose 152 H Ferritin Total Bilirubin Alkaline Phosphatase Lactate Dehydrogenase Troponin T C-Reactive Protein Albumin Prealbumin LDL Cholesterol Direct Arterial Blood Glucose 185 H Arterial Blood Ionized Calcium 03/01/20 03/01/20 03/01/20 00:00 03:45 04:33 WBC 23.1 H RBC MCV MCH 27 L RDW 15.3 H Plt Count Lymph % (Auto) Wells # (Auto) Seg Neutrophils % Seg Neuts % (Manual) 92.0 H Lymphocytes % (Manual) 6.0 L Seg Neutrophils # Seg Neutrophils # Man 21.3 H Lymphocytes # (Manual) Monocytes # (Manual) Eosinophils # (Manual) 0.5 H PT INR D-Dimer ABG pH 7.492 H POC ABG pCO2 POC ABG pO2 ABG pO2 157.1 H ABG HCO3 32.3 H ABG O2 Saturation ABG Base Excess 8.1 H ABG Hemoglobin 13.2 L ABG Oxyhemoglobin ABG Potassium ABG Glucose Oxyhemoglobin Carboxyhemoglobin Sodium Potassium Chloride Carbon Dioxide BUN Creatinine Glucose POC Glucose 109 H Ferritin Total Bilirubin Alkaline Phosphatase Lactate Dehydrogenase Troponin T C-Reactive Protein Albumin Prealbumin LDL Cholesterol Direct Arterial Blood Glucose Arterial Blood Ionized Calcium 03/01/20 03/01/20 03/01/20 04:33 05:29 12:32 WBC RBC MCV MCH RDW Plt Count Lymph % (Auto) Wells # (Auto) Seg Neutrophils % Seg Neuts % (Manual) Lymphocytes % (Manual) Seg Neutrophils # Seg Neutrophils # Man Lymphocytes # (Manual) Monocytes # (Manual) Eosinophils # (Manual) PT INR D-Dimer ABG pH POC ABG pCO2 POC ABG pO2 ABG pO2 ABG HCO3 ABG O2 Saturation ABG Base Excess ABG Hemoglobin ABG Oxyhemoglobin ABG Potassium ABG Glucose Oxyhemoglobin Carboxyhemoglobin Sodium 146 H Potassium Chloride Carbon Dioxide 32 H BUN Creatinine < 0.2 L Glucose 120 H POC Glucose 120 H 128 H Ferritin Total Bilirubin Alkaline Phosphatase Lactate Dehydrogenase Troponin T C-Reactive Protein Albumin Prealbumin LDL Cholesterol Direct Arterial Blood Glucose Arterial Blood Ionized Calcium 03/01/20 03/01/20 03/02/20 17:38 23:46 06:13 WBC RBC MCV MCH RDW Plt Count Lymph % (Auto) Wells # (Auto) Seg Neutrophils % Seg Neuts % (Manual) Lymphocytes % (Manual) Seg Neutrophils # Seg Neutrophils # Man Lymphocytes # (Manual) Monocytes # (Manual) Eosinophils # (Manual) PT INR D-Dimer ABG pH POC ABG pCO2 POC ABG pO2 ABG pO2 ABG HCO3 ABG O2 Saturation ABG Base Excess ABG Hemoglobin ABG Oxyhemoglobin ABG Potassium ABG Glucose Oxyhemoglobin Carboxyhemoglobin Sodium Potassium Chloride Carbon Dioxide BUN Creatinine Glucose POC Glucose 114 H 121 H 120 H Ferritin Total Bilirubin Alkaline Phosphatase Lactate Dehydrogenase Troponin T C-Reactive Protein Albumin Prealbumin LDL Cholesterol Direct Arterial Blood Glucose Arterial Blood Ionized Calcium 03/02/20 03/02/20 03/03/20 09:47 09:47 10:21 WBC 23.6 H RBC MCV MCH RDW 15.3 H Plt Count 494 H Lymph % (Auto) Wells # (Auto) Seg Neutrophils % Seg Neuts % (Manual) 85.0 H Lymphocytes % (Manual) 6.0 L Seg Neutrophils # Seg Neutrophils # Man 20.1 H Lymphocytes # (Manual) Monocytes # (Manual) 1.7 H Eosinophils # (Manual) PT INR D-Dimer ABG pH POC ABG pCO2 POC ABG pO2 ABG pO2 ABG HCO3 ABG O2 Saturation ABG Base Excess ABG Hemoglobin ABG Oxyhemoglobin ABG Potassium 3.3 L ABG Glucose 158 H Oxyhemoglobin Carboxyhemoglobin Sodium Potassium Chloride Carbon Dioxide BUN Creatinine < 0.2 L Glucose 177 H POC Glucose Ferritin Total Bilirubin Alkaline Phosphatase Lactate Dehydrogenase Troponin T C-Reactive Protein Albumin Prealbumin LDL Cholesterol Direct Arterial Blood Glucose 158 H Arterial Blood Ionized Calcium 03/03/20 03/04/20 03/04/20 21:30 00:00 12:23 WBC RBC MCV MCH RDW Plt Count Lymph % (Auto) Wells # (Auto) Seg Neutrophils % Seg Neuts % (Manual) Lymphocytes % (Manual) Seg Neutrophils # Seg Neutrophils # Man Lymphocytes # (Manual) Monocytes # (Manual) Eosinophils # (Manual) PT INR D-Dimer ABG pH 7.328 L POC ABG pCO2 POC ABG pO2 ABG pO2 68.4 L ABG HCO3 35.0 H ABG O2 Saturation 93.9 L ABG Base Excess 6.8 H ABG Hemoglobin 12.7 L ABG Oxyhemoglobin ABG Potassium ABG Glucose Oxyhemoglobin 91.9 L Carboxyhemoglobin Sodium Potassium Chloride Carbon Dioxide BUN Creatinine Glucose POC Glucose 187 H 163 H Ferritin Total Bilirubin Alkaline Phosphatase Lactate Dehydrogenase Troponin T C-Reactive Protein Albumin Prealbumin LDL Cholesterol Direct Arterial Blood Glucose Arterial Blood Ionized Calcium 03/04/20 03/04/20 03/05/20 18:15 21:30 06:02 WBC RBC MCV MCH RDW Plt Count Lymph % (Auto) Wells # (Auto) Seg Neutrophils % Seg Neuts % (Manual) Lymphocytes % (Manual) Seg Neutrophils # Seg Neutrophils # Man Lymphocytes # (Manual) Monocytes # (Manual) Eosinophils # (Manual) PT INR D-Dimer ABG pH 7.297 L POC ABG pCO2 POC ABG pO2 ABG pO2 ABG HCO3 41.0 H ABG O2 Saturation ABG Base Excess 11.0 H ABG Hemoglobin 13.1 L ABG Oxyhemoglobin ABG Potassium ABG Glucose Oxyhemoglobin 94.5 L Carboxyhemoglobin Sodium Potassium Chloride Carbon Dioxide BUN Creatinine Glucose POC Glucose 192 H 127 H Ferritin Total Bilirubin Alkaline Phosphatase Lactate Dehydrogenase Troponin T C-Reactive Protein Albumin Prealbumin LDL Cholesterol Direct Arterial Blood Glucose Arterial Blood Ionized Calcium 03/05/20 12:09 WBC RBC MCV MCH RDW Plt Count Lymph % (Auto) Wells # (Auto) Seg Neutrophils % Seg Neuts % (Manual) Lymphocytes % (Manual) Seg Neutrophils # Seg Neutrophils # Man Lymphocytes # (Manual) Monocytes # (Manual) Eosinophils # (Manual) PT INR D-Dimer ABG pH POC ABG pCO2 POC ABG pO2 ABG pO2 ABG HCO3 ABG O2 Saturation ABG Base Excess ABG Hemoglobin ABG Oxyhemoglobin ABG Potassium ABG Glucose Oxyhemoglobin Carboxyhemoglobin Sodium Potassium Chloride Carbon Dioxide BUN Creatinine Glucose POC Glucose 147 H Ferritin Total Bilirubin Alkaline Phosphatase Lactate Dehydrogenase Troponin T C-Reactive Protein Albumin Prealbumin LDL Cholesterol Direct Arterial Blood Glucose Arterial Blood Ionized Calcium Chest x-ray: other (none today) Allied health notes reviewed: nursing
[2020-03-05] MEDS: MORPHINE 2 MG/1 ML INJ IV PRN ×2 (17:56→22:12)
[2020-03-05] MEDS: ENOXAPARIN 40 MG/0.4 ML INJ SUB-Q SCH (21:59)
[2020-03-06 04:42] LABS: ABG Base Excess 11.4 mmol/L (-2.0-3.0); ABG HCO3 37.9 mmol/L (20.0-26.0); ABG Methemoglobin 0.6 % (0.0-1.5); ABG PCO2 60.1 mm Hg; ABG PH 7.417 pH Units (7.350-7.450); ABG PO2 88.6 mm Hg (80.0-90.0)
[2020-03-06 06:26] LABS: Hematocrit 32.7 % (35.5-45.6); Hemoglobin 10.5 gm/dl (11.8-15.2); Mean Corpuscular HGB Conc 32 % (32-34); Mean Corpuscular Volume 85 fl (84-94); Platelet Count 634 K/mm3 (140-440); Red Blood Count 3.84 M/mm3 (3.65-5.03); Red Cell Distribution Width 15.3 % (13.2-15.2)
[2020-03-06 06:43] LABS: Alanine Aminotransferase 18 units/L (7-56); Albumin 3.3 g/dL (3.9-5); BUN/Creatinine Ratio 115; Blood Urea Nitrogen 23 mg/dL (9-20); Calcium 8.9 mg/dL (8.4-10.2); Hemolysis Index 56
[2020-03-06 07:32] LABS: Band Neutrophils # (Manual) 0.3 K/mm3; Basophils % (Manual) 0 % (0.0-1.8); Eosinophils % (Manual) 0 % (0.0-4.3); Platelet Estimate Consistent w Auto; RBC Morphology Normal; Total Cells Counted 100
[2020-03-06] MEDS: METOPROLOL TARTRATE 25 MG TAB PO SCH ×2 (10:19→21:27)
[2020-03-06] MEDS: SCOPOLAMINE TRANSDERMAL PATCH 72 HR TD SCH (10:19)
[2020-03-06] MEDS: LANSOPRAZOLE 30 MG SOLUTAB FEEDTUBE SCH (10:19)
[2020-03-06] MEDS: MORPHINE 2 MG/1 ML INJ IV PRN ×2 (10:50→19:51)
--- NOTE | 2020-03-06 13:46 | Event Note ---
Date: 03/06/20 Consult for trach noted. General surgeon, Dr. Flowers already consulted on this patient. Discussed with Dr. Flowers who will also see patient for tracheostomy. Notified Dr. Khan.
--- NOTE | 2020-03-06 13:56 | Progress Note ---
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 Respiratory Failure Severe Sepsis with Shock Bilateral Pneumonia (Possible aspiration) History of ALS on Trilogy Oropharyngeal Dysphagia PUI-COVID Acute toxic metabolic encephalopathy Elevated D-dimer Elevated troponin possibly type 2 ischemia - General Surgery consult placed for tracheostomy (Dr. Flowers to see) - continue Daily SAT and SBT assessment as tolerated - continue care as below otherwise; - continue Scopolamine patch for secretion control - wean supplemental oxygen for target O2 sat's > 92% acutely - bronchodilators with pulmonary hygiene per RT - VAP bundle addressed - continue lung protective strategies - continue bronchodilators with pulmonary hygiene per RT - wean per pulmonary driven protocols otherwise - sedation prn for target RASS 0 to -1 - empiric antiinfectives per ID rec's (Rocephin and Zithromax) - COVID-19 isolation (Airborne & Contact) - empiric Dexamethasonme - follow COVID-19 test results - trend inflammatory markers to aid clinical decision making - enteral nutrition at goal rate as tolerated - Aspiration precautions - accuchecks with glycemic control per SSI (While critically ill target blood glucose of 140-180 mg/dL; avoid hypoglycemia) - avoid nephrotoxins, renally dose all medications - avoid benzodiazepine's, reduce the possibility of delirium - prn analgesia per CPOT score - Maintenance of sleep-wake cycle, avoid delirium - aspiration precautions - G.I. & VTE prophylaxis - PT/OT/ROM exercises - mobility protocols for pressure ulcer prophylaxis - Monitor hemodynamics closely - continue other care per attending / other consultants - discharge planning ongoing concurrently .... Re-evaluate in am & prn CONDITION: CRITICAL PROGNOSIS: GUARDED CODE STATUS: FULL CODE The high probability of a clinically significant, sudden or life-threatening deterioration of the [respiratory, cardiovascular & neurologic] system(s) requ ired my full and direct attention, intervention and personal management. The aggregate critical care time was [32] minutes without overlap. Time includes spent on; [x] Data Review and interpretation [x] Patient assessment and monitoring of vital signs [x] Documentation [x] Medication orders and management Subjective Date of service: 03/06/20 Principal diagnosis: Ac on Ch Hypercapnic & hypoxemic Resp Failure; Severe Sepsis; Jamar PNA; ALS Interval history: Patient is seen today for: Acute on Chronic Hypercapnic & hypoxemic Respiratory Failure; Severe Sepsis with Shock; Bilateral Pneumonia (Possible aspiration); History of ALS on Trilogy; PUI-COVID; Acute toxic metabolic encephalopathy Seen and examined at bedside; 24hour events reviewed; nursing and respiratory care staff consulted; no adverse overnight events reported to me; resting in bed ; remains on MVS; awaiting trach placement; tolerating SBT's tenuously; no N/V/F/C Objective Vital Signs - 12hr 03/06/20 03/06/20 03/06/20 02:00 02:30 03:00 Temperature Pulse Rate 93 H 90 91 H Pulse Rate [ From Monitor] Respiratory 16 14 17 Rate Respiratory Rate [Left Hip] Blood Pressure 134/79 132/76 129/77 O2 Sat by Pulse 97 98 96 Oximetry 03/06/20 03/06/20 03/06/20 03:30 04:00 04:21 Temperature 99 F Pulse Rate 94 H 96 H 92 H Pulse Rate [ 99 H From Monitor] Respiratory 18 18 Rate Respiratory Rate [Left Hip] Blood Pressure 135/80 134/80 134/80 O2 Sat by Pulse 97 96 96 Oximetry 03/06/20 03/06/20 03/06/20 04:30 05:00 05:30 Temperature Pulse Rate 86 97 H 92 H Pulse Rate [ From Monitor] Respiratory 13 19 16 Rate Respiratory Rate [Left Hip] Blood Pressure 125/79 143/86 135/80 O2 Sat by Pulse 96 96 97 Oximetry 03/06/20 03/06/20 03/06/20 06:00 06:30 07:00 Temperature Pulse Rate 96 H 93 H 90 Pulse Rate [ From Monitor] Respiratory 16 18 17 Rate Respiratory Rate [Left Hip] Blood Pressure 135/82 143/76 136/80 O2 Sat by Pulse 97 97 97 Oximetry 03/06/20 03/06/20 03/06/20 07:30 07:44 08:00 Temperature 98.1 F Pulse Rate 91 H 89 88 Pulse Rate [ 99 H From Monitor] Respiratory 14 13 Rate Respiratory Rate [Left Hip] Blood Pressure 133/79 133/79 131/80 O2 Sat by Pulse 97 97 97 Oximetry 03/06/20 03/06/20 03/06/20 08:30 09:00 09:05 Temperature Pulse Rate 90 91 H 90 Pulse Rate [ From Monitor] Respiratory 16 17 22 Rate Respiratory Rate [Left Hip] Blood Pressure 132/82 138/79 138/79 O2 Sat by Pulse 97 97 95 Oximetry 03/06/20 03/06/20 03/06/20 09:30 10:00 10:19 Temperature Pulse Rate 80 90 85 Pulse Rate [ From Monitor] Respiratory 18 27 H Rate Respiratory 18 Rate [Left Hip] Blood Pressure 151/80 153/87 153/87 O2 Sat by Pulse 96 94 Oximetry 03/06/20 03/06/20 03/06/20 10:30 11:00 11:30 Temperature Pulse Rate 81 83 78 Pulse Rate [ From Monitor] Respiratory 24 21 22 Rate Respiratory Rate [Left Hip] Blood Pressure 150/80 150/83 147/81 O2 Sat by Pulse 95 95 95 Oximetry 03/06/20 03/06/20 12:00 12:01 Temperature Pulse Rate 76 84 Pulse Rate [ 76 From Monitor] Respiratory 20 25 H Rate Respiratory Rate [Left Hip] Blood Pressure 152/86 O2 Sat by Pulse 96 94 Oximetry Constitutional: no acute distress, other (thin middle aged male with mildly increased respiratory effort at rest on MVS) Eyes: non-icteric ENT: oropharynx moist, other (ETT 23 cm LYNETTE) Neck: supple, no lymphadenopathy, no JVD Effort: mildly labored Ascultation: Bilateral: clear, diminished breath sounds Percussion: Bilateral: not dull Cardiovascular: regular rate and rhythm, other (S1,S2, no murmurs) Gastrointestinal: normoactive bowel sounds, soft, non-tender, non-distended Integumentary: normal, decubitus ulcer (sacral / gluteal) Extremities: no cyanosis, no edema, pulses normal, other (atrophic looking limbs) Neurologic: pupils equal and round, other (motor strength in extremities 1-2/5) Psychiatric: mood appropriate, affect normal CBC and BMP: 03/06/20 06:08 03/06/20 06:08 ABG, PT/INR, D-dimer: ABG ABG pH 7.417 pH Units (7.350-7.450) 03/06/20 04:34 POC ABG pCO2 46.9 mmHg (32.0-48.0) 03/03/20 10:21 ABG pCO2 60.1 mm Hg 03/06/20 04:34 POC ABG pO2 83.0 mmHg (83-108) 03/03/20 10:21 ABG pO2 88.6 mm Hg (80.0-90.0) 03/06/20 04:34 POC ABG HCO3 30.7 03/03/20 10:21 ABG O2 Saturation 97.0 % (95.0-99.0) 03/06/20 04:34 PT/INR, D-dimer PT 15.6 Sec. (12.2-14.9) H 02/24/20 09:19 INR 1.21 (0.87-1.13) H 02/24/20 09:19 D-Dimer 1311.96 ng/mlDDU (0-234) H 02/24/20 09:19 Abnormal lab findings: Abnormal Labs 02/24/20 02/24/20 02/24/20 09:19 09:19 09:19 WBC 20.2 H RBC 5.05 H Hgb Hct MCV MCH RDW 15.3 H Plt Count Lymph % (Auto) Cascade # (Auto) Seg Neutrophils % Seg Neuts % (Manual) 86.0 H Lymphocytes % (Manual) 1.0 L Monocytes % (Manual) Seg Neutrophils # Seg Neutrophils # Man 17.4 H Lymphocytes # (Manual) 0.2 L Monocytes # (Manual) Eosinophils # (Manual) PT 15.6 H INR 1.21 H D-Dimer 1311.96 H ABG pH POC ABG pCO2 POC ABG pO2 ABG pO2 ABG HCO3 ABG O2 Saturation ABG Base Excess ABG Hemoglobin ABG Oxyhemoglobin ABG Potassium ABG Glucose Oxyhemoglobin Carboxyhemoglobin Sodium 135 L Potassium 3.2 L Chloride 92.2 L Carbon Dioxide BUN 6 L Creatinine < 0.2 L Glucose 124 H POC Glucose Ferritin Total Bilirubin 2.30 H Alkaline Phosphatase 132 H Lactate Dehydrogenase Troponin T 0.080 H C-Reactive Protein Albumin 3.6 L Prealbumin LDL Cholesterol Direct 41 L Arterial Blood Glucose Arterial Blood Ionized Calcium 02/24/20 02/24/20 02/24/20 09:19 09:58 10:01 WBC RBC Hgb Hct MCV MCH RDW Plt Count Lymph % (Auto) Cascade # (Auto) Seg Neutrophils % Seg Neuts % (Manual) Lymphocytes % (Manual) Monocytes % (Manual) Seg Neutrophils # Seg Neutrophils # Man Lymphocytes # (Manual) Monocytes # (Manual) Eosinophils # (Manual) PT INR D-Dimer ABG pH 7.176 L* POC ABG pCO2 POC ABG pO2 ABG pO2 91.2 H ABG HCO3 ABG O2 Saturation ABG Base Excess -4.6 L ABG Hemoglobin ABG Oxyhemoglobin ABG Potassium ABG Glucose Oxyhemoglobin 92.6 L Carboxyhemoglobin Sodium Potassium Chloride Carbon Dioxide BUN Creatinine Glucose POC Glucose Ferritin 1715.0 H Total Bilirubin Alkaline Phosphatase Lactate Dehydrogenase 303 H Troponin T C-Reactive Protein 26.10 H Albumin Prealbumin LDL Cholesterol Direct Arterial Blood Glucose Arterial Blood Ionized Calcium 02/24/20 02/24/20 02/24/20 11:52 13:45 19:35 WBC RBC Hgb Hct MCV MCH RDW Plt Count Lymph % (Auto) Cascade # (Auto) Seg Neutrophils % Seg Neuts % (Manual) Lymphocytes % (Manual) Monocytes % (Manual) Seg Neutrophils # Seg Neutrophils # Man Lymphocytes # (Manual) Monocytes # (Manual) Eosinophils # (Manual) PT INR D-Dimer ABG pH 7.051 L* 7.300 L POC ABG pCO2 POC ABG pO2 ABG pO2 94.7 H 75.1 L ABG HCO3 18.0 L ABG O2 Saturation 93.5 L ABG Base Excess -6.8 L -7.8 L ABG Hemoglobin 13.2 L 11.9 L ABG Oxyhemoglobin ABG Potassium ABG Glucose Oxyhemoglobin 91.0 L 92.7 L Carboxyhemoglobin Sodium Potassium Chloride Carbon Dioxide BUN Creatinine Glucose POC Glucose Ferritin Total Bilirubin Alkaline Phosphatase Lactate Dehydrogenase Troponin T 0.034 H D C-Reactive Protein Albumin Prealbumin LDL Cholesterol Direct Arterial Blood Glucose Arterial Blood Ionized Calcium 02/25/20 02/25/20 02/25/20 04:00 04:00 12:26 WBC 22.9 H RBC Hgb Hct MCV 83 L MCH 27 L RDW Plt Count 468 H Lymph % (Auto) Cascade # (Auto) Seg Neutrophils % Seg Neuts % (Manual) 89.0 H Lymphocytes % (Manual) 7.0 L Monocytes % (Manual) Seg Neutrophils # Seg Neutrophils # Man 20.4 H Lymphocytes # (Manual) Monocytes # (Manual) Eosinophils # (Manual) PT INR D-Dimer ABG pH POC ABG pCO2 POC ABG pO2 ABG pO2 ABG HCO3 ABG O2 Saturation ABG Base Excess ABG Hemoglobin ABG Oxyhemoglobin ABG Potassium 2.6 L ABG Glucose 142 H Oxyhemoglobin Carboxyhemoglobin Sodium Potassium 3.2 L Chloride Carbon Dioxide 18 L BUN Creatinine 0.2 L Glucose 114 H POC Glucose Ferritin Total Bilirubin Alkaline Phosphatase Lactate Dehydrogenase Troponin T C-Reactive Protein Albumin 3.5 L Prealbumin LDL Cholesterol Direct Arterial Blood Glucose 142 H Arterial Blood Ionized Calcium 02/26/20 02/26/20 02/26/20 15:58 17:00 23:43 WBC RBC Hgb Hct MCV MCH RDW Plt Count Lymph % (Auto) Cascade # (Auto) Seg Neutrophils % Seg Neuts % (Manual) Lymphocytes % (Manual) Monocytes % (Manual) Seg Neutrophils # Seg Neutrophils # Man Lymphocytes # (Manual) Monocytes # (Manual) Eosinophils # (Manual) PT INR D-Dimer ABG pH 7.502 H POC ABG pCO2 POC ABG pO2 213.6 H ABG pO2 ABG HCO3 ABG O2 Saturation ABG Base Excess ABG Hemoglobin ABG Oxyhemoglobin 99.2 H ABG Potassium 2.9 L ABG Glucose 160 H Oxyhemoglobin Carboxyhemoglobin 0.4 L Sodium Potassium Chloride Carbon Dioxide BUN Creatinine Glucose POC Glucose 189 H 120 H Ferritin Total Bilirubin Alkaline Phosphatase Lactate Dehydrogenase Troponin T C-Reactive Protein Albumin Prealbumin LDL Cholesterol Direct Arterial Blood Glucose 160 H Arterial Blood Ionized Calcium 4.5 L 02/27/20 02/27/20 02/27/20 05:00 07:04 17:45 WBC RBC Hgb Hct MCV MCH RDW Plt Count Lymph % (Auto) Cascade # (Auto) Seg Neutrophils % Seg Neuts % (Manual) Lymphocytes % (Manual) Monocytes % (Manual) Seg Neutrophils # Seg Neutrophils # Man Lymphocytes # (Manual) Monocytes # (Manual) Eosinophils # (Manual) PT INR D-Dimer ABG pH 7.524 H POC ABG pCO2 POC ABG pO2 ABG pO2 ABG HCO3 ABG O2 Saturation ABG Base Excess ABG Hemoglobin ABG Oxyhemoglobin ABG Potassium 3.0 L ABG Glucose 143 H Oxyhemoglobin Carboxyhemoglobin Sodium Potassium Chloride Carbon Dioxide BUN Creatinine Glucose POC Glucose 154 H 175 H Ferritin Total Bilirubin Alkaline Phosphatase Lactate Dehydrogenase Troponin T C-Reactive Protein Albumin Prealbumin LDL Cholesterol Direct Arterial Blood Glucose 143 H Arterial Blood Ionized Calcium 02/27/20 02/28/20 02/28/20 Unknown 00:21 04:15 WBC 18.7 H RBC Hgb Hct MCV MCH RDW Plt Count Lymph % (Auto) 8.7 L Cascade # (Auto) 1.2 H Seg Neutrophils % 84.6 H Seg Neuts % (Manual) Lymphocytes % (Manual) Monocytes % (Manual) Seg Neutrophils # 15.9 H Seg Neutrophils # Man Lymphocytes # (Manual) Monocytes # (Manual) Eosinophils # (Manual) PT INR D-Dimer ABG pH POC ABG pCO2 POC ABG pO2 ABG pO2 ABG HCO3 ABG O2 Saturation ABG Base Excess ABG Hemoglobin ABG Oxyhemoglobin ABG Potassium ABG Glucose Oxyhemoglobin Carboxyhemoglobin Sodium Potassium 2.9 L* Chloride Carbon Dioxide 33 H D BUN Creatinine < 0.2 L Glucose 157 H POC Glucose 134 H Ferritin Total Bilirubin Alkaline Phosphatase Lactate Dehydrogenase Troponin T C-Reactive Protein Albumin Prealbumin LDL Cholesterol Direct Arterial Blood Glucose Arterial Blood Ionized Calcium 02/28/20 02/28/20 02/28/20 04:15 05:16 05:39 WBC RBC Hgb Hct MCV MCH RDW Plt Count Lymph % (Auto) Cascade # (Auto) Seg Neutrophils % Seg Neuts % (Manual) Lymphocytes % (Manual) Monocytes % (Manual) Seg Neutrophils # Seg Neutrophils # Man Lymphocytes # (Manual) Monocytes # (Manual) Eosinophils # (Manual) PT INR D-Dimer ABG pH POC ABG pCO2 POC ABG pO2 ABG pO2 142.9 H ABG HCO3 34.1 H ABG O2 Saturation ABG Base Excess 8.3 H ABG Hemoglobin ABG Oxyhemoglobin ABG Potassium ABG Glucose Oxyhemoglobin Carboxyhemoglobin Sodium 151 H Potassium Chloride Carbon Dioxide 32 H BUN Creatinine 0.2 L Glucose 167 H POC Glucose 138 H Ferritin Total Bilirubin Alkaline Phosphatase Lactate Dehydrogenase Troponin T C-Reactive Protein Albumin Prealbumin LDL Cholesterol Direct Arterial Blood Glucose Arterial Blood Ionized Calcium 02/28/20 02/28/20 02/28/20 11:05 11:33 12:54 WBC RBC Hgb Hct MCV MCH RDW Plt Count Lymph % (Auto) Cascade # (Auto) Seg Neutrophils % Seg Neuts % (Manual) Lymphocytes % (Manual) Monocytes % (Manual) Seg Neutrophils # Seg Neutrophils # Man Lymphocytes # (Manual) Monocytes # (Manual) Eosinophils # (Manual) PT INR D-Dimer ABG pH POC ABG pCO2 POC ABG pO2 ABG pO2 ABG HCO3 ABG O2 Saturation ABG Base Excess ABG Hemoglobin ABG Oxyhemoglobin ABG Potassium ABG Glucose Oxyhemoglobin Carboxyhemoglobin Sodium Potassium Chloride Carbon Dioxide BUN Creatinine Glucose POC Glucose 160 H Ferritin Total Bilirubin Alkaline Phosphatase Lactate Dehydrogenase Troponin T C-Reactive Protein 4.70 H Albumin Prealbumin 0.090 L LDL Cholesterol Direct Arterial Blood Glucose Arterial Blood Ionized Calcium 02/28/20 02/29/20 02/29/20 17:34 00:44 04:05 WBC 19.6 H RBC Hgb Hct MCV MCH 27 L RDW 15.4 H Plt Count Lymph % (Auto) [place] # (Auto) Seg Neutrophils % Seg Neuts % (Manual) 86.0 H Lymphocytes % (Manual) 7.0 L Monocytes % (Manual) Seg Neutrophils # Seg Neutrophils # Man 16.9 H Lymphocytes # (Manual) Monocytes # (Manual) 1.2 H Eosinophils # (Manual) PT INR D-Dimer ABG pH POC ABG pCO2 POC ABG pO2 ABG pO2 ABG HCO3 ABG O2 Saturation ABG Base Excess ABG Hemoglobin ABG Oxyhemoglobin ABG Potassium ABG Glucose Oxyhemoglobin Carboxyhemoglobin Sodium Potassium Chloride Carbon Dioxide BUN Creatinine Glucose POC Glucose 136 H 156 H Ferritin Total Bilirubin Alkaline Phosphatase Lactate Dehydrogenase Troponin T C-Reactive Protein Albumin Prealbumin LDL Cholesterol Direct Arterial Blood Glucose Arterial Blood Ionized Calcium 02/29/20 02/29/20 02/29/20 04:05 05:14 05:33 WBC RBC Hgb Hct MCV MCH RDW Plt Count Lymph % (Auto) C[place] # (Auto) Seg Neutrophils % Seg Neuts % (Manual) Lymphocytes % (Manual) Monocytes % (Manual) Seg Neutrophils # Seg Neutrophils # Man Lymphocytes # (Manual) Monocytes # (Manual) Eosinophils # (Manual) PT INR D-Dimer ABG pH POC ABG pCO2 54.3 H POC ABG pO2 124.8 H ABG pO2 ABG HCO3 ABG O2 Saturation ABG Base Excess ABG Hemoglobin ABG Oxyhemoglobin ABG Potassium ABG Glucose 185 H Oxyhemoglobin Carboxyhemoglobin Sodium 148 H Potassium Chloride Carbon Dioxide 33 H BUN Creatinine < 0.2 L Glucose 173 H POC Glucose 152 H Ferritin Total Bilirubin Alkaline Phosphatase Lactate Dehydrogenase Troponin T C-Reactive Protein Albumin Prealbumin LDL Cholesterol Direct Arterial Blood Glucose 185 H Arterial Blood Ionized Calcium 03/01/20 03/01/20 03/01/20 00:00 03:45 04:33 WBC 23.1 H RBC Hgb Hct MCV MCH 27 L RDW 15.3 H Plt Count Lymph % (Auto) [place] # (Auto) Seg Neutrophils % Seg Neuts % (Manual) 92.0 H Lymphocytes % (Manual) 6.0 L Monocytes % (Manual) Seg Neutrophils # Seg Neutrophils # Man 21.3 H Lymphocytes # (Manual) Monocytes # (Manual) Eosinophils # (Manual) 0.5 H PT INR D-Dimer ABG pH 7.492 H POC ABG pCO2 POC ABG pO2 ABG pO2 157.1 H ABG HCO3 32.3 H ABG O2 Saturation ABG Base Excess 8.1 H ABG Hemoglobin 13.2 L ABG Oxyhemoglobin ABG Potassium ABG Glucose Oxyhemoglobin Carboxyhemoglobin Sodium Potassium Chloride Carbon Dioxide BUN Creatinine Glucose POC Glucose 109 H Ferritin Total Bilirubin Alkaline Phosphatase Lactate Dehydrogenase Troponin T C-Reactive Protein Albumin Prealbumin LDL Cholesterol Direct Arterial Blood Glucose Arterial Blood Ionized Calcium 03/01/20 03/01/20 03/01/20 04:33 05:29 12:32 WBC RBC Hgb Hct MCV MCH RDW Plt Count Lymph % (Auto) C[place] # (Auto) Seg Neutrophils % Seg Neuts % (Manual) Lymphocytes % (Manual) Monocytes % (Manual) Seg Neutrophils # Seg Neutrophils # Man Lymphocytes # (Manual) Monocytes # (Manual) Eosinophils # (Manual) PT INR D-Dimer ABG pH POC ABG pCO2 POC ABG pO2 ABG pO2 ABG HCO3 ABG O2 Saturation ABG Base Excess ABG Hemoglobin ABG Oxyhemoglobin ABG Potassium ABG Glucose Oxyhemoglobin Carboxyhemoglobin Sodium 146 H Potassium Chloride Carbon Dioxide 32 H BUN Creatinine < 0.2 L Glucose 120 H POC Glucose 120 H 128 H Ferritin Total Bilirubin Alkaline Phosphatase Lactate Dehydrogenase Troponin T C-Reactive Protein Albumin Prealbumin LDL Cholesterol Direct Arterial Blood Glucose Arterial Blood Ionized Calcium 03/01/20 03/01/20 03/02/20 17:38 23:46 06:13 WBC RBC Hgb Hct MCV MCH RDW Plt Count Lymph % (Auto) [place] # (Auto) Seg Neutrophils % Seg Neuts % (Manual) Lymphocytes % (Manual) Monocytes % (Manual) Seg Neutrophils # Seg Neutrophils # Man Lymphocytes # (Manual) Monocytes # (Manual) Eosinophils # (Manual) PT INR D-Dimer ABG pH POC ABG pCO2 POC ABG pO2 ABG pO2 ABG HCO3 ABG O2 Saturation ABG Base Excess ABG Hemoglobin ABG Oxyhemoglobin ABG Potassium ABG Glucose Oxyhemoglobin Carboxyhemoglobin Sodium Potassium Chloride Carbon Dioxide BUN Creatinine Glucose POC Glucose 114 H 121 H 120 H Ferritin Total Bilirubin Alkaline Phosphatase Lactate Dehydrogenase Troponin T C-Reactive Protein Albumin Prealbumin LDL Cholesterol Direct Arterial Blood Glucose Arterial Blood Ionized Calcium 03/02/20 03/02/20 03/03/20 09:47 09:47 10:21 WBC 23.6 H RBC Hgb Hct MCV MCH RDW 15.3 H Plt Count 494 H Lymph % (Auto) [place] # (Auto) Seg Neutrophils % Seg Neuts % (Manual) 85.0 H Lymphocytes % (Manual) 6.0 L Monocytes % (Manual) Seg Neutrophils # Seg Neutrophils # Man 20.1 H Lymphocytes # (Manual) Monocytes # (Manual) 1.7 H Eosinophils # (Manual) PT INR D-Dimer ABG pH POC ABG pCO2 POC ABG pO2 ABG pO2 ABG HCO3 ABG O2 Saturation ABG Base Excess ABG Hemoglobin ABG Oxyhemoglobin ABG Potassium 3.3 L ABG Glucose 158 H Oxyhemoglobin Carboxyhemoglobin Sodium Potassium Chloride Carbon Dioxide BUN Creatinine < 0.2 L Glucose 177 H POC Glucose Ferritin Total Bilirubin Alkaline Phosphatase Lactate Dehydrogenase Troponin T C-Reactive Protein Albumin Prealbumin LDL Cholesterol Direct Arterial Blood Glucose 158 H Arterial Blood Ionized Calcium 03/03/20 03/04/20 03/04/20 21:30 00:00 12:23 WBC RBC Hgb Hct MCV MCH RDW Plt Count Lymph % (Auto) [place] # (Auto) Seg Neutrophils % Seg Neuts % (Manual) Lymphocytes % (Manual) Monocytes % (Manual) Seg Neutrophils # Seg Neutrophils # Man Lymphocytes # (Manual) Monocytes # (Manual) Eosinophils # (Manual) PT INR D-Dimer ABG pH 7.328 L POC ABG pCO2 POC ABG pO2 ABG pO2 68.4 L ABG HCO3 35.0 H ABG O2 Saturation 93.9 L ABG Base Excess 6.8 H ABG Hemoglobin 12.7 L ABG Oxyhemoglobin ABG Potassium ABG Glucose Oxyhemoglobin 91.9 L Carboxyhemoglobin Sodium Potassium Chloride Carbon Dioxide BUN Creatinine Glucose POC Glucose 187 H 163 H Ferritin Total Bilirubin Alkaline Phosphatase Lactate Dehydrogenase Troponin T C-Reactive Protein Albumin Prealbumin LDL Cholesterol Direct Arterial Blood Glucose Arterial Blood Ionized Calcium 03/04/20 03/04/20 03/05/20 18:15 21:30 06:02 WBC RBC Hgb Hct MCV MCH RDW Plt Count Lymph % (Auto) [place] # (Auto) Seg Neutrophils % Seg Neuts % (Manual) Lymphocytes % (Manual) Monocytes % (Manual) Seg Neutrophils # Seg Neutrophils # Man Lymphocytes # (Manual) Monocytes # (Manual) Eosinophils # (Manual) PT INR D-Dimer ABG pH 7.297 L POC ABG pCO2 POC ABG pO2 ABG pO2 ABG HCO3 41.0 H ABG O2 Saturation ABG Base Excess 11.0 H ABG Hemoglobin 13.1 L ABG Oxyhemoglobin ABG Potassium ABG Glucose Oxyhemoglobin 94.5 L Carboxyhemoglobin Sodium Potassium Chloride Carbon Dioxide BUN Creatinine Glucose POC Glucose 192 H 127 H Ferritin Total Bilirubin Alkaline Phosphatase Lactate Dehydrogenase Troponin T C-Reactive Protein Albumin Prealbumin LDL Cholesterol Direct Arterial Blood Glucose Arterial Blood Ionized Calcium 03/05/20 03/05/20 03/06/20 12:09 16:42 00:24 WBC RBC Hgb Hct MCV MCH RDW Plt Count Lymph % (Auto) [place] # (Auto) Seg Neutrophils % Seg Neuts % (Manual) Lymphocytes % (Manual) Monocytes % (Manual) Seg Neutrophils # Seg Neutrophils # Man Lymphocytes # (Manual) Monocytes # (Manual) Eosinophils # (Manual) PT INR D-Dimer ABG pH POC ABG pCO2 POC ABG pO2 ABG pO2 ABG HCO3 ABG O2 Saturation ABG Base Excess ABG Hemoglobin ABG Oxyhemoglobin ABG Potassium ABG Glucose Oxyhemoglobin Carboxyhemoglobin Sodium Potassium Chloride Carbon Dioxide BUN Creatinine Glucose POC Glucose 147 H 114 H 134 H Ferritin Total Bilirubin Alkaline Phosphatase Lactate Dehydrogenase Troponin T C-Reactive Protein Albumin Prealbumin LDL Cholesterol Direct Arterial Blood Glucose Arterial Blood Ionized Calcium 03/06/20 03/06/20 03/06/20 04:34 05:53 06:08 WBC 25.4 H RBC Hgb 10.5 L Hct 32.7 L MCV MCH 27 L RDW 15.3 H Plt Count 634 H Lymph % (Auto) [place] # (Auto) Seg Neutrophils % Seg Neuts % (Manual) 88.0 H Lymphocytes % (Manual) 2.0 L Monocytes % (Manual) 8.0 H Seg Neutrophils # Seg Neutrophils # Man 22.4 H Lymphocytes # (Manual) 0.5 L Monocytes # (Manual) 2.0 H Eosinophils # (Manual) PT INR D-Dimer ABG pH POC ABG pCO2 POC ABG pO2 ABG pO2 ABG HCO3 37.9 H ABG O2 Saturation ABG Base Excess 11.4 H ABG Hemoglobin 10.6 L ABG Oxyhemoglobin ABG Potassium ABG Glucose Oxyhemoglobin 94.7 L Carboxyhemoglobin Sodium Potassium Chloride Carbon Dioxide BUN Creatinine Glucose POC Glucose 135 H Ferritin Total Bilirubin Alkaline Phosphatase Lactate Dehydrogenase Troponin T C-Reactive Protein Albumin Prealbumin LDL Cholesterol Direct Arterial Blood Glucose Arterial Blood Ionized Calcium 03/06/20 03/06/20 06:08 12:19 WBC RBC Hgb Hct MCV MCH RDW Plt Count Lymph % (Auto) [place] # (Auto) Seg Neutrophils % Seg Neuts % (Manual) Lymphocytes % (Manual) Monocytes % (Manual) Seg Neutrophils # Seg Neutrophils # Man Lymphocytes # (Manual) Monocytes # (Manual) Eosinophils # (Manual) PT INR D-Dimer ABG pH POC ABG pCO2 POC ABG pO2 ABG pO2 ABG HCO3 ABG O2 Saturation ABG Base Excess ABG Hemoglobin ABG Oxyhemoglobin ABG Potassium ABG Glucose Oxyhemoglobin Carboxyhemoglobin Sodium 150 H D Potassium Chloride Carbon Dioxide 39 H D BUN 23 H Creatinine < 0.2 L Glucose 144 H POC Glucose 169 H Ferritin Total Bilirubin Alkaline Phosphatase Lactate Dehydrogenase Troponin T C-Reactive Protein Albumin 3.3 L Prealbumin LDL Cholesterol Direct Arterial Blood Glucose Arterial Blood Ionized Calcium Chest x-ray: other (none today) Allied health notes reviewed: nursing
--- NOTE | 2020-03-06 14:13 | Progress Note ---
Assessment and Plan Cultures: Blood culture no growth today SARS CoV2 PCR negative Sputum culture 03/03/2020 Stenotrophomonas Blood culture 03/03/2020 no growth today Assessment: 59 years old female with history of ALS with chronic respiratory failure on home trilogy BiPAP, admitted on 02/24/2020 due to worsening shortness of breath for 24 hours: #Severe sepsis: likely due to bilateral pneumonia +/- left gluteal necrotic pres sure ulcer. Fever resolved, remains with leukocytosis #Severe bilateral pneumonia: Likely community-acquired pneumonia. Procalcitonin elevated-1.13. CTA shows no PE but multifocal pneumonia with predominance left lower lobe. No DVT on US. Elevated D-dimer -1311. SARS-CoV-2 PCR negative. Sputum culture +Stenotrophomonas. CRP 26-->4. Prcal 1.1-->1.6. Repeat CXR near complete atelectasis resolved. #Left gluteal necrotic pressure ulcer: S/p debridement, not infected per wound care. #Acute on chronic mixed respiratory failure: Intubated, re intubated overnight. #ALS Recommendations: -Patient to have a trach -Completed cefepime and vancomycin -Start Levaquin 750 mg IV/PO daily for total 7 days for Stenotrophomonas pneumonia -Monitor fever and leukocytosis Will follow Diana Maravilla MD Infectious Diseases [facility] [phone] O [phone] Subjective Date of service: 03/06/20 Principal diagnosis: Ac on Ch Hypercapnic & hypoxemic Resp Failure; Severe Sepsi s; Jamar PNA; ALS Interval history: Remains intubated, no fever Objective - Exam Narrative Exam: General appearance: Intubated, alert follows commands Eyes: anicteric sclerae, moist conjunctivae; no lid-lag; PERRLA HENT: Normocephalic, Atraumatic; normal external ears, nares open, oropharynx limited, endotracheal tube in place, NG tube Neck: supple, tracheal midline, no JVD Lungs: Bilateral rhonchi CV: RRR no murmur Abdomen: Soft, non-tender; no masses or hepatosplenomegaly Extremities: no edema, no cyanosis Skin: No rash. per wound care Left buttock unstageable pressure ulcer measuring 4.5x7x0.9cm. Wound bed is 7o% necrotic. Small amounts of yellow drainage with a mild odor noted. Psych: no agitated Neuro: Alert on the ventilator - Constitutional Vitals: Vital Signs Temp Pulse Resp BP Pulse Ox 98.1 F 84 25 H 152/86 94 03/06/20 08:00 03/06/20 12:01 03/06/20 12:01 03/06/20 12:01 03/06/20 12:01 Temperature -Last 24 Hours Temperature 98.1 F Temperature 99 F Temperature 98.8 F Temperature 99 F Temperature 99.4 F - Labs CBC & Chem 7: 03/06/20 06:08 03/06/20 06:08 Labs: Abnormal lab results 03/05/20 03/06/20 03/06/20 Range/Units 16:42 00:24 04:34 WBC (4.5-11.0) K/mm3 Hgb (11.8-15.2) gm/dl Hct (35.5-45.6) % MCH (28-32) pg RDW (13.2-15.2) % Plt Count (140-440) K/mm3 Seg Neuts % (Manual) (40.0-70.0) % Lymphocytes % (Manual) (13.4-35.0) % Monocytes % (Manual) (0.0-7.3) % Seg Neutrophils # Man (1.8-7.7) K/mm3 Lymphocytes # (Manual) (1.2-5.4) K/mm3 Monocytes # (Manual) (0.0-0.8) K/mm3 ABG HCO3 37.9 H (20.0-26.0) mmol/L ABG Base Excess 11.4 H (-2.0-3.0) mmol/L ABG Hemoglobin 10.6 L (14.0-18.0) gm/dl Oxyhemoglobin 94.7 L (95.0-99.0) % Sodium (137-145) mmol/L Carbon Dioxide (22-30) mmol/L BUN (9-20) mg/dL Creatinine (0.8-1.3) mg/dL Glucose (75-100) mg/dL POC Glucose 114 H 134 H (70-105) mg/dL Albumin (3.9-5) g/dL 03/06/20 03/06/20 03/06/20 Range/Units 05:53 06:08 06:08 WBC 25.4 H (4.5-11.0) K/mm3 Hgb 10.5 L (11.8-15.2) gm/dl Hct 32.7 L (35.5-45.6) % MCH 27 L (28-32) pg RDW 15.3 H (13.2-15.2) % Plt Count 634 H (140-440) K/mm3 Seg Neuts % (Manual) 88.0 H (40.0-70.0) % Lymphocytes % (Manual) 2.0 L (13.4-35.0) % Monocytes % (Manual) 8.0 H (0.0-7.3) % Seg Neutrophils # Man 22.4 H (1.8-7.7) K/mm3 Lymphocytes # (Manual) 0.5 L (1.2-5.4) K/mm3 Monocytes # (Manual) 2.0 H (0.0-0.8) K/mm3 ABG HCO3 (20.0-26.0) mmol/L ABG Base Excess (-2.0-3.0) mmol/L ABG Hemoglobin (14.0-18.0) gm/dl Oxyhemoglobin (95.0-99.0) % Sodium 150 H D (137-145) mmol/L Carbon Dioxide 39 H D (22-30) mmol/L BUN 23 H (9-20) mg/dL Creatinine < 0.2 L (0.8-1.3) mg/dL Glucose 144 H (75-100) mg/dL POC Glucose 135 H (70-105) mg/dL Albumin 3.3 L (3.9-5) g/dL 03/06/20 Range/Units 12:19 WBC (4.5-11.0) K/mm3 Hgb (11.8-15.2) gm/dl Hct (35.5-45.6) % MCH (28-32) pg RDW (13.2-15.2) % Plt Count (140-440) K/mm3 Seg Neuts % (Manual) (40.0-70.0) % Lymphocytes % (Manual) (13.4-35.0) % Monocytes % (Manual) (0.0-7.3) % Seg Neutrophils # Man (1.8-7.7) K/mm3 Lymphocytes # (Manual) (1.2-5.4) K/mm3 Monocytes # (Manual) (0.0-0.8) K/mm3 ABG HCO3 (20.0-26.0) mmol/L ABG Base Excess (-2.0-3.0) mmol/L ABG Hemoglobin (14.0-18.0) gm/dl Oxyhemoglobin (95.0-99.0) % Sodium (137-145) mmol/L Carbon Dioxide (22-30) mmol/L BUN (9-20) mg/dL Creatinine (0.8-1.3) mg/dL Glucose (75-100) mg/dL POC Glucose 169 H (70-105) mg/dL Albumin (3.9-5) g/dL
--- NOTE | 2020-03-06 15:02 | Progress Note ---
Assessment and Plan Assessment and plan: 59-year-old male patient with significant past medical history of ALS, presented to ED with worsening shortness of breath since the morning [employer] INS[employer]. Patient was on a trilogy machine for breathing 18/11. EMS arrived, patient had O2 sats in the 80s. EMS attempted to place patient on their CPAP machine, hill john patient did not tolerate. Patient was admitted to the ICU with diagnosis of acute hypoxic respiratory failure and placed on BiPAP. Patient initially tolerated but later deteriorated with respiratory status. CTA chest showed no PE but significant for bilateral pneumonia. Doppler ultrasound also negative for DVT. COVID-19 test ordered. Due to persistent hypoxia, patient was intubated on 02/26/2020 at 1500. Patient now on mechanical ventilation in the ICU. 02/26/2020. Blood cultures are negative x48 hours and Covid testing negative as well. Continue antibiotics per ID recommendations for community-acquired bilateral pneumonia. Cardiology consultation for elevated troponin. Check echocardiogram. 02/27/2020. Events of yesterday noted with asystole following V. fib arrest. Patient currently on AC mode rate 20, tidal volume 400, FiO2 50% and a PEEP of 6. Follow-up echocardiogram for elevated troponin. Cardiology suspects NSTEMI Type 2 in the setting of acute resp failure. Chest CTA and BLE Dopplers neg. we will discontinue Decadron given the Covid PCR is negative. 02/28/2020. I spoke with the sister Felisa Eli who is the power of divorce attorney regarding advanced directives and she instructed me that she would like to continue with aggressive care at this time. I informed her of the guarded prognosis and high mortality/morbidity and she voiced understanding. Patient currently with AC mode ventilation rate 18, tidal volume 400, FiO2 40% and a PEEP of 6. Continue antibiotics for pneumonia. ID previously consulted. Also consult neurology with regards to ALS. 02/29/2020; patient is intubated and on CPAP patient is alert and oriented. Patient has ALS. Dr. Álvarez spoke with his sister and she wants aggressive care. Continue antibiotics for pneumonia. Neurology consulted for ALS. Prognosis poor 03/01/2020; patient is intubated and on CPAP, patient is alert and oriented. I spoke with his 2 sisters about the management plan. 03/02/2020; patient is intubated and on CPAP. Patient was alert and oriented. I spoke with Dr. mohr and he thinks patient may need mechanical ventilation, likely his disease progressed. Dr. Flowers did debridement this morning. 03/03/2020; patient is intubated and on CPAP, patient was on trilogy and BiPAP at home. Patient has ALS. on spontaneous breathing trial. Patient is alert and oriented but quadriplegic. Patient has severe bilateral pneumonia and is on cefepime and Vanco, ID is following. Patient has sacral decubitus ulcer and debridement was done by Dr. Flowers and there is no osteomyelitis. 03/05. Patient still on broad-spectrum antibiotics. Status post sacral decubitus ulcer debridements-no osteomyelitis. Patient is on AC 25/400/30% PEEP 5. No blood gas results today. 03/06. Plan for tracheostomy by surgery. Still remains intubated. Labs reviewed-sodium 150. Started on free water 200 every 8hr. trend sodium. Problems --Acute hypoxic hypercapnic respiratory failure; Intubated on mechanical ventilation. Etiology secondary to sepsis, ALS, multifocal pneumonia (Covid negative). --ALS; Chronic --Elevated D-dimers; CTA chest, lower extremity venous Doppler both are negative Lovenox DVT prophylaxis --Bilateral pneumonia; probably community-acquired Continue cefepime and vancomycin ID recommendations appreciated --Sepsis secondary to pneumonia Continue cefepime and vancomycin --Elevated troponin; Serial cardiac enzymes, serial EKGs Echocardiogram, cardiology consult if needed --Hypernatremia Trend sodium Free water via feeding tube --DVT prophylaxis; Lovenox The high probability of a clinically significant, sudden or life threatening deterioration of the [cardiac and respiratory] system(s) required my full and direct attention, intervention and personal management. The aggregate critical care time was [34] minutes. This time is in addition to time spent performing reported procedures but includes the following: [x] Data Review and interpretation [x] Patient assessment and monitoring of vital signs [x] Documentation [x] Medication orders and management History Interval history: Patient seen and examined at bedside Intubated Awake on [facility] Hospitalist Physical - Physical exam Narrative exam: VITAL SIGNS: Reviewed. GENERAL: Awake. Intubated HEAD: No signs of head trauma. EYES: Pupils are equal. Extraocular motions intact. EARS: Hearing grossly intact. MOUTH: Oropharynx is normal. NECK: No adenopathy, no JVD. CHEST: Coarse breath sounds bilaterally CARDIAC: Regular rate and rhythm. S1 and S2, without murmurs, gallops, or rubs. VASCULAR: No Edema. Peripheral pulses normal and equal in all extremities. ABDOMEN: Soft, non tender and non distended. No rebound or guarding, and no masses palpated. Bowel Sounds normal. NEUROLOGIC EXAM: Awake SKIN: No obvious lesions - Constitutional Vitals: Temp Pulse Resp BP Pulse Ox 98.1 F 84 25 H 152/86 94 03/06/20 08:00 03/06/20 12:01 03/06/20 12:01 03/06/20 12:01 03/06/20 12:01 General appearance: Present: mild distress, other (Intubated on mechanical ventilation) HEART Score - HEART Score Troponin: Troponin T 0.034 ng/mL (0.00-0.029) H D 02/24/20 19:35 Results - Labs CBC & Chem 7: 03/06/20 06:08 03/06/20 06:08 Labs: Laboratory Last Values WBC 25.4 K/mm3 (4.5-11.0) H 03/06/20 06:08 RBC 3.84 M/mm3 (3.65-5.03) 03/06/20 06:08 Hgb 10.5 gm/dl (11.8-15.2) L 03/06/20 06:08 Hct 32.7 % (35.5-45.6) L 03/06/20 06:08 MCV 85 fl (84-94) 03/06/20 06:08 MCH 27 pg (28-32) L 03/06/20 06:08 MCHC 32 % (32-34) 03/06/20 06:08 RDW 15.3 % (13.2-15.2) H 03/06/20 06:08 Plt Count 634 K/mm3 (140-440) H 03/06/20 06:08 Lymph % (Auto) 8.7 % (13.4-35.0) L 02/28/20 04:15 Otero % (Auto) 6.6 % (0.0-7.3) 02/28/20 04:15 Eos % (Auto) 0.0 % (0.0-4.3) 02/28/20 04:15 Baso % (Auto) 0.1 % (0.0-1.8) 02/28/20 04:15 Lymph # (Auto) 1.6 K/mm3 (1.2-5.4) 02/28/20 04:15 Otero # (Auto) 1.2 K/mm3 (0.0-0.8) H 02/28/20 04:15 Eos # (Auto) 0.0 K/mm3 (0.0-0.4) 02/28/20 04:15 Baso # (Auto) 0.0 K/mm3 (0.0-0.1) 02/28/20 04:15 Add Manual Diff Complete 03/06/20 06:08 Total Counted 100 03/06/20 06:08 Seg Neutrophils % 84.6 % (40.0-70.0) H 02/28/20 04:15 Seg Neuts % (Manual) 88.0 % (40.0-70.0) H 03/06/20 06:08 Band Neutrophils % 1.0 % 03/06/20 06:08 Lymphocytes % (Manual) 2.0 % (13.4-35.0) L 03/06/20 06:08 Reactive Lymphs % (Man) 1.0 % 03/06/20 06:08 Monocytes % (Manual) 8.0 % (0.0-7.3) H 03/06/20 06:08 Eosinophils % (Manual) 0 % (0.0-4.3) 03/06/20 06:08 Basophils % (Manual) 0 % (0.0-1.8) 03/06/20 06:08 Metamyelocytes % 0 % 03/06/20 06:08 Myelocytes % 0 % 03/06/20 06:08 Promyelocytes % 0 % 03/06/20 06:08 Blast Cells % 0 % 03/06/20 06:08 Nucleated RBC % Not Reportable 03/06/20 06:08 Seg Neutrophils # 15.9 K/mm3 (1.8-7.7) H 02/28/20 04:15 Seg Neutrophils # Man 22.4 K/mm3 (1.8-7.7) H 03/06/20 06:08 Band Neutrophils # 0.3 K/mm3 03/06/20 06:08 Lymphocytes # (Manual) 0.5 K/mm3 (1.2-5.4) L 03/06/20 06:08 Abs React Lymphs (Man) 0.3 K/mm3 03/06/20 06:08 Monocytes # (Manual) 2.0 K/mm3 (0.0-0.8) H 03/06/20 06:08 Eosinophils # (Manual) 0.0 K/mm3 (0.0-0.4) 03/06/20 06:08 Basophils # (Manual) 0.0 K/mm3 (0.0-0.1) 03/06/20 06:08 Metamyelocytes # 0.0 K/mm3 03/06/20 06:08 Myelocytes # 0.0 K/mm3 03/06/20 06:08 Promyelocytes # 0.0 K/mm3 03/06/20 06:08 Blast Cells # 0.0 K/mm3 03/06/20 06:08 WBC Morphology Not Reportable 03/06/20 06:08 Hypersegmented Neuts Not Reportable 03/06/20 06:08 Hyposegmented Neuts Not Reportable 03/06/20 06:08 Hypogranular Neuts Not Reportable 03/06/20 06:08 Smudge Cells Not Reportable 03/06/20 06:08 Toxic Granulation Not Reportable 03/06/20 06:08 Toxic Vacuolation Not Reportable 03/06/20 06:08 Dohle Bodies Not Reportable 03/06/20 06:08 Pelger-Huet Anomaly Not Reportable 03/06/20 06:08 Robert Rods Not Reportable 03/06/20 06:08 Platelet Estimate Consistent w auto 03/06/20 06:08 Clumped Platelets Not Reportable 03/06/20 06:08 Plt Clumps, EDTA Not Reportable 03/06/20 06:08 Large Platelets Not Reportable 03/06/20 06:08 Giant Platelets Not Reportable 03/06/20 06:08 Platelet Satelliting Not Reportable 03/06/20 06:08 Plt Morphology Comment Not Reportable 03/06/20 06:08 RBC Morphology Normal 03/06/20 06:08 Dimorphic RBCs Not Reportable 03/06/20 06:08 Polychromasia Not Reportable 03/06/20 06:08 Hypochromasia Not Reportable 03/06/20 06:08 Poikilocytosis Not Reportable 03/06/20 06:08 Anisocytosis Not Reportable 03/06/20 06:08 Microcytosis Not Reportable 03/06/20 06:08 Macrocytosis Not Reportable 03/06/20 06:08 Spherocytes Not Reportable 03/06/20 06:08 Pappenheimer Bodies Not Reportable 03/06/20 06:08 Sickle Cells Not Reportable 03/06/20 06:08 Target Cells Not Reportable 03/06/20 06:08 Tear Drop Cells Not Reportable 03/06/20 06:08 Ovalocytes Not Reportable 03/06/20 06:08 Helmet Cells Not Reportable 03/06/20 06:08 Gregory-[place] Bodies Not Reportable 03/06/20 06:08 [place] Rings Not Reportable 03/06/20 06:08 [place] Cells Not Reportable 03/06/20 06:08 Bite Cells Not Reportable 03/06/20 06:08 Crenated Cell Not Reportable 03/06/20 06:08 Elliptocytes Not Reportable 03/06/20 06:08 Acanthocytes (Spur) Not Reportable 03/06/20 06:08 Rouleaux Not Reportable 03/06/20 06:08 Hemoglobin C Crystals Not Reportable 03/06/20 06:08 Schistocytes Not Reportable 03/06/20 06:08 Malaria parasites Not Reportable 03/06/20 06:08 Colton Bodies Not Reportable 03/06/20 06:08 Hem Pathologist Commnt No 03/06/20 06:08 PT 15.6 Sec. (12.2-14.9) H 02/24/20 09:19 INR 1.21 (0.87-1.13) H 02/24/20 09:19 APTT 25.4 Sec. (24.2-36.6) 02/24/20 09:19 D-Dimer 1311.96 ng/mlDDU (0-234) H 02/24/20 09:19 ABG pH 7.417 pH Units (7.350-7.450) 03/06/20 04:34 POC ABG pCO2 46.9 mmHg (32.0-48.0) 03/03/20 10:21 ABG pCO2 60.1 mm Hg 03/06/20 04:34 POC ABG pO2 83.0 mmHg (83-108) 03/03/20 10:21 ABG pO2 88.6 mm Hg (80.0-90.0) 03/06/20 04:34 POC ABG HCO3 30.7 03/03/20 10:21 ABG HCO3 37.9 mmol/L (20.0-26.0) H 03/06/20 04:34 ABG O2 Saturation 97.0 % (95.0-99.0) 03/06/20 04:34 ABG O2 Content 14.3 (0.0-44) 03/06/20 04:34 POC ABG Base Excess 5.6 03/03/20 10:21 ABG Base Excess 11.4 mmol/L (-2.0-3.0) H 03/06/20 04:34 ABG Hemoglobin 10.6 gm/dl (14.0-18.0) L 03/06/20 04:34 ABG Oxyhemoglobin 99.2 (94-98) H 02/26/20 17:00 ABG Carboxyhemoglobin 1.7 % (0.0-5.0) 03/06/20 04:34 ABG Methemoglobin 0.6 % (0.0-1.5) 03/06/20 04:34 ABG Sodium 140.4 mmol/L (136.0-145.0) 03/03/20 10:21 ABG Potassium 3.3 mmol/L (3.40-4.50) L 03/03/20 10:21 ABG Chloride 103.0 mmol/L (98-107) 03/03/20 10:21 ABG Glucose 158 mg/dL (65-95) H 03/03/20 10:21 Oxyhemoglobin 94.7 % (95.0-99.0) L 03/06/20 04:34 Carboxyhemoglobin 0.4 (0.5-1.5) L 02/26/20 17:00 FiO2 30 % 03/06/20 04:34 Sodium 150 mmol/L (137-145) H D 03/06/20 06:08 Potassium 4.4 mmol/L (3.6-5.0) 03/06/20 06:08 Chloride 106.5 mmol/L (98-107) 03/06/20 06:08 Carbon Dioxide 39 mmol/L (22-30) H D 03/06/20 06:08 Anion Gap 9 mmol/L 03/06/20 06:08 BUN 23 mg/dL (9-20) H 03/06/20 06:08 Creatinine < 0.2 mg/dL (0.8-1.3) L 03/06/20 06:08 Estimated GFR > 60 ml/min 03/06/20 06:08 BUN/Creatinine Ratio 115 % 03/06/20 06:08 Glucose 144 mg/dL (75-100) H 03/06/20 06:08 POC Glucose 169 mg/dL (70-105) H 03/06/20 12:19 Lactic Acid 1.00 mmol/L (0.7-2.0) 02/24/20 12:07 Calcium 8.9 mg/dL (8.4-10.2) 03/06/20 06:08 Magnesium 2.30 mg/dL (1.7-2.3) 02/25/20 04:00 Ferritin 1715.0 ng/mL (30.0-300.0) H 02/24/20 10:01 Total Bilirubin 0.60 mg/dL (0.1-1.2) 03/06/20 06:08 AST 17 units/L (5-40) 03/06/20 06:08 ALT 18 units/L (7-56) 03/06/20 06:08 Alkaline Phosphatase 60 units/L (35-129) 03/06/20 06:08 Lactate Dehydrogenase 303 units/L (91-180) H 02/24/20 09:19 Total Creatine Kinase 101 units/L (55-170) 02/24/20 19:35 CK-MB (CK-2) 3.5 ng/mL (0.0-4.0) 02/24/20 19:35 CK-MB (CK-2) Rel Index 3.4 (0-4) 02/24/20 19:35 Troponin T 0.034 ng/mL (0.00-0.029) H D 02/24/20 19:35 C-Reactive Protein 4.70 mg/dL (0.00-1.30) H 02/28/20 11:05 NT-Pro-B Natriuret Pep 48.30 pg/mL (0-900) 02/24/20 09:19 Total Protein 6.7 g/dL (6.3-8.2) 03/06/20 06:08 Albumin 3.3 g/dL (3.9-5) L 03/06/20 06:08 Albumin/Globulin Ratio 1.0 % 03/06/20 06:08 Prealbumin 0.090 g/L (0.200-0.400) L 02/28/20 12:54 Triglycerides 60 mg/dL (2-149) 02/24/20 09:19 Cholesterol 104 mg/dL (50-199) 02/24/20 09:19 LDL Cholesterol Direct 41 mg/dL (50-130) L 02/24/20 09:19 HDL Cholesterol 45 mg/dL (40-59) 02/24/20 09:19 Cholesterol/HDL Ratio 2.31 % 02/24/20 09:19 Procalcitonin 1.68 ng/mL (<0.15) 02/28/20 14:51 Arterial Blood Glucose 158 mg/dL (65-95) H 03/03/20 10:21 Arterial Blood Ionized Calcium 4.7 mg/dL (4.6-5.3) 03/03/20 10:21 Urine Color Yellow (Yellow) 03/03/20 18:00 Urine Turbidity Clear (Clear) 03/03/20 18:00 Urine pH 6.0 (5.0-7.0) 03/03/20 18:00 Ur Specific [place] 1.017 (1.003-1.030) 03/03/20 18:00 Urine Protein <15 mg/dl mg/dL (Negative) 03/03/20 18:00 Urine Glucose (UA) Neg mg/dL (Negative) 03/03/20 18:00 Urine Ketones Neg mg/dL (Negative) 03/03/20 18:00 Urine Blood Sm (Negative) 03/03/20 18:00 Urine Nitrite Neg (Negative) 03/03/20 18:00 Urine Bilirubin Neg (Negative) 03/03/20 18:00 Urine Urobilinogen < 2.0 mg/dL (<2.0) 03/03/20 18:00 Ur Leukocyte Esterase Neg (Negative) 03/03/20 18:00 Urine WBC (Auto) 4.0 /HPF (0.0-6.0) 03/03/20 18:00 Urine RBC (Auto) 10.0 /HPF (0.0-6.0) 03/03/20 18:00 Urine Bacteria (Auto) 1+ /HPF (Negative) 03/03/20 18:00 Urine Mucus Few /HPF 03/03/20 18:00 Urine Yeast (Budding) 2+ /HPF 03/03/20 18:00 Vancomycin Trough 8.0 ug/mL (5.0-20.0) 03/04/20 08:59 Coronavirus (PCR) Negative (Negative) 02/25/20 09:03 Microbiology: Microbiology 03/03/20 16:57 Tracheal Aspirate Sputum Culture - Final Stenotrophomonas Maltophilia 03/03/20 15:08 Peripheral/Venous Blood Culture - Preliminary NO GROWTH AFTER 48 HOURS 03/03/20 15:08 Peripheral/Venous Blood Culture - Preliminary NO GROWTH AFTER 48 HOURS - Diagnostic Impressions Diagnostic Impressions: Echocardiogram 02/26/20 10:41 Transthoracic Echocardiogram Indication: Elevated Trop BP: 116/75 HR: 85 Conclusions *Global left ventricular wall motion and contractility are within normal limits. *The estimated ejection fraction is 50-55%. *Abnormal left ventricular diastolic filling is observed, consistent with impaired relaxation. *There is no pericardial effusion. Findings Left Ventricle: The left ventricular chamber size is normal. Global left ventricular wall motion and contractility are within normal limits. Global left ventricular systolic function is normal. The estimated ejection fraction is 50-55%. Abnormal left ventricular diastolic filling is observed, consistent with impaired relaxation. Left Atrium: The left atrial chamber size is normal. Right Ventricle: The right ventricular cavity size is normal. Right Atrium: The right atrial cavity size is normal. Aortic Valve: Mild aortic leaflet calcification is visualized. There is no evidence of aortic regurgitation. Mitral Valve: The mitral valve leaflets are mildly thickened. There is no evidence of mitral regurgitation. Tricuspid Valve: The tricuspid valve leaflets are normal. There is trace tricuspid regurgitation. The right ventricular systolic pressure is calculated at 29 mmHg. Pulmonic Valve: The pulmonic valve is not well visualized. Pericardium: There is no pericardial effusion. Aorta: The aorta appears normal. Venous: The inferior vena cava is dilated. There is less than 50% respiratory change in the inferior vena cava dimension. Measurements Chambers 2D Name Value Normal Range IVSd (2D) 0.97 cm (0.6 - 1.1) LVPWd (2D) 0.93 cm (0.6 - 1.1) LVIDd (2D) 4 cm (3.7 - 5.6) LVIDs (2D) 2.73 cm (2 - 3.8) LV FS (2D) 31.67 % - EF Teichholz (2D) 60.23 % - Ao root diameter (2D) 3.51 cm (2 - 3.7) Volumes/Mass Name Value Normal Range LA ESV SP 4CH (A/L) 8.43 ml - LA ESV SP 2CH (A/L) 18.89 ml - LA ESV BP (A/L) 13.02 ml - LA ESV BP (A/L) index 8.8 ml/m2 - LA ESV SP 4CH (MOD) 7.22 ml - LA ESV SP 2CH (MOD) 18.15 ml - LA ESV BP (MOD) 11.47 ml - LA ESV BP (MOD) index 7.75 ml/m2 - Diastolic/Systolic Function Name Value Normal Range MV E-wave Vmax 0.51 m/sec - MV deceleration time 180.22 msec - MV A-wave Vmax 0.62 m/sec - MV E:A ratio 0.82 ratio - Aortic Valve Name Value Normal Range AV Vmax 1.17 m/sec - AV VTI 19.71 cm - AV peak gradient 5.44 mmHg - AV mean gradient 3.38 mmHg - LVOT diameter 2.26 cm - LVOT Vmax 0.89 m/sec - LVOT VTI 13.72 cm - LVOT peak gradient 3.17 mmHg - LVOT mean gradient 1.67 mmHg - SV LVOT 55.03 ml - SHARAD (continuity Vmax) 3.06 cm2 - SHARAD (continuity VTI) 2.79 cm2 - Tricuspid Valve Name Value Normal Range TR Vmax 2.3 m/sec - TR peak gradient 21 mmHg - RAP 8 mmHg - RVSP 29 mmHg - IVC diameter 2.59 cm (1.2 - 2.3) Pulmonic Valve/Qp:Qs Name Value Normal Range PV acceleration time 68.51 msec - Reardon/IV: Voiding Method Condom Catheter IV Catheter Type [Left Wrist] Peripheral IV IV Catheter Type [Right Peripheral IV Forearm] IV Catheter Type [Right Triple Lumen Cath Internal Jugular] IV Catheter Type [Left Forearm INT / Saline Lock ] IV Catheter Type [Right Triple Lumen Cath Femoral] IV Catheter Type [Right INT / Saline Lock Antecubital] Active Medications - Current Medications Current Medications: Generic Name Dose Route Start Last Admin Trade Name Freq PRN Reason Stop Dose Admin Acetaminophen 650 mg 02/24/20 15:13 02/28/20 09:18 Tylenol PO 650 mg Q4H PRN Administration Pain, Mild (1-3) Albuterol 2.5 mg 02/24/20 15:13 Proventil IH Q4HRT PRN Shortness Of Breath Lipase/Protease/Amylase 1 each 02/26/20 11:16 Pancreaze 10,500 Unit FEEDTUBE PRN PRN For Clogged Feeding Tube Enoxaparin Sodium 40 mg 02/24/20 22:00 03/05/20 21:59 Enoxaparin SUB-Q 40 mg QDAY@2200 ALISA Administration Protocol Lansoprazole 30 mg 02/28/20 10:00 03/06/20 10:19 Prevacid Solutab FEEDTUBE 30 mg QDAY ALISA Administration Metoprolol Tartrate 12.5 mg 02/24/20 22:00 03/06/20 10:19 Metoprolol PO 12.5 mg BID ALISA Administration Morphine Sulfate 2 mg 02/29/20 16:42 03/06/20 10:50 Morphine IV 2 mg Q4H PRN Administration Pain, Moderate (4-6) Scopolamine 1 each 03/03/20 14:00 03/06/20 10:19 Transderm-Scop TD 1 each Q3D ALISA Administration Simple Syrup 15 ml 02/26/20 11:16 Simple Syrup FEEDTUBE PRN PRN Hypoglycemia Simple Syrup 30 ml 02/26/20 11:16 Simple Syrup FEEDTUBE PRN PRN Hypoglycemia Sodium Bicarbonate 325 mg 02/26/20 11:16 Sodium Bicarbonate FEEDTUBE PRN PRN For Clogged Feeding Tube Nutrition/Malnutrition Assess - Dietary Evaluation Nutrition/Malnutrition Findings: Nutrition Notes Start: 02/26/20 10 :40 Freq: Status: Active Protocol: Document 03/02/20 12:03 VALDO (Rec: 03/02/20 13:37 VALDO [id number]) Co-Sign 03/02/20 12:03 MK Nutrition Notes Initial or Follow up Reassessment Current Diagnosis Decubitus(Pressure Ulcer), Sepsis,Respiratory Failure Other Pertinent Diagnosis COVID-19 (-), ALS, pneumonia, Hip/buttock PU Current Diet Vital AF 1.2 at 75ml/hr (goal rate) Labs/Tests Na 146 Pertinent Medications Cephalosporin Vancomycin Height 6 ft Weight 64.9 kg Usual Body Weight 65.91 kg [place] Body Weight (kg) 80.90 BMI 19.4 Weight Status Underweight Subjective/Other Information F/u TF tolerance and Will. Delivered Will to RN. Pt tolerating TF at goal rate. 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 Yes Is Patient Ambulatory and/or Out of Bed No REE-([place]-confined to bed) 1807.284 Kcal/Kg value to use for calculation 35 Approximate Energy Requirements Using 2272 kcal/Kg Calculation Used for Recommendations Kcal/kg Additional Notes Protein 1.2-1.5-134g Fluid: 1ml/kcal Nutrition Intervention Change Diet Order: Continue TF Nutrition Support: Vital AF 1.2 at 75ml/hr. Flush 200ml q4h Kcal 2,160 Protein (gm) 135 Fluid (mL) 1,460 Add Supplement/Snack (indicate name/kcal Will BID /protein ) Provides kCal: 190 Provides Protein (gm) 5 Goal #1 Meet at least 80% of energy and protein needs via TF Goal #2 Wound healing Anticipated Discharge Needs: Unable to determine at this time Follow-Up By: 03/08/20 Additional Comments F/u stable TF and Will adm
--- NOTE | 2020-03-06 17:50 | Progress Note ---
Assessment and Plan - Patient Problems (1) Pressure ulcer of left buttock, unstageable Current Visit: Yes Status: Acute (2) Severe protein-calorie malnutrition Current Visit: Yes Status: Acute (3) Hemorrhage postprocedure Current Visit: Yes Status: Acute (4) Bleeding from wound Current Visit: Yes Status: Acute (5) Respiratory failure Current Visit: Yes Status: Acute Plan to address problem: 1) NPO after MN 2) Open tracheostomy at 08:00 tomorrow 3) Prophylactic Ancef preop Subjective Date of service: 03/06/20 Patient Reports: Positive: no new complaints Narrative: Consulted for tracheostomy placement secondary to respiratory failure. Objective Vital Signs - 12hr 03/06/20 03/06/20 03/06/20 06:00 06:30 07:00 Temperature Pulse Rate 96 H 93 H 90 Pulse Rate [ From Monitor] Respiratory 16 18 17 Rate Respiratory Rate [Left Hip] Blood Pressure 135/82 143/76 136/80 O2 Sat by Pulse 97 97 97 Oximetry 03/06/20 03/06/20 03/06/20 07:30 07:44 08:00 Temperature 98.1 F Pulse Rate 91 H 89 88 Pulse Rate [ 99 H From Monitor] Respiratory 14 13 Rate Respiratory Rate [Left Hip] Blood Pressure 133/79 133/79 131/80 O2 Sat by Pulse 97 97 97 Oximetry 03/06/20 03/06/20 03/06/20 08:30 09:00 09:05 Temperature Pulse Rate 90 91 H 90 Pulse Rate [ From Monitor] Respiratory 16 17 22 Rate Respiratory Rate [Left Hip] Blood Pressure 132/82 138/79 138/79 O2 Sat by Pulse 97 97 95 Oximetry 03/06/20 03/06/20 03/06/20 09:30 10:00 10:19 Temperature Pulse Rate 80 90 85 Pulse Rate [ From Monitor] Respiratory 18 27 H Rate Respiratory 18 Rate [Left Hip] Blood Pressure 151/80 153/87 153/87 O2 Sat by Pulse 96 94 Oximetry 03/06/20 03/06/20 03/06/20 10:30 11:00 11:25 Temperature Pulse Rate 81 83 77 Pulse Rate [ From Monitor] Respiratory 24 21 18 Rate Respiratory Rate [Left Hip] Blood Pressure 150/80 150/83 150/79 O2 Sat by Pulse 95 95 93 Oximetry 03/06/20 03/06/20 03/06/20 11:30 12:00 12:01 Temperature 98 F Pulse Rate 78 76 84 Pulse Rate [ 76 From Monitor] Respiratory 22 20 25 H Rate Respiratory Rate [Left Hip] Blood Pressure 147/81 152/86 O2 Sat by Pulse 95 96 94 Oximetry 03/06/20 03/06/20 03/06/20 12:30 13:00 13:30 Temperature Pulse Rate 84 79 83 Pulse Rate [ From Monitor] Respiratory 21 21 26 H Rate Respiratory Rate [Left Hip] Blood Pressure 145/84 144/82 154/77 O2 Sat by Pulse 94 94 94 Oximetry 03/06/20 03/06/20 03/06/20 14:00 14:30 15:00 Temperature Pulse Rate 78 81 82 Pulse Rate [ From Monitor] Respiratory 19 21 19 Rate Respiratory Rate [Left Hip] Blood Pressure 150/79 146/77 125/74 O2 Sat by Pulse 94 91 92 Oximetry 03/06/20 03/06/20 03/06/20 15:30 16:00 16:30 Temperature 99.2 F Pulse Rate 87 80 102 H Pulse Rate [ 104 H From Monitor] Respiratory 17 13 17 Rate Respiratory Rate [Left Hip] Blood Pressure 139/81 119/74 131/83 O2 Sat by Pulse 88 95 96 Oximetry 03/06/20 17:00 Temperature Pulse Rate 99 H Pulse Rate [ From Monitor] Respiratory 13 Rate Respiratory Rate [Left Hip] Blood Pressure 136/88 O2 Sat by Pulse 96 Oximetry - Labs 03/06/20 06:08 03/06/20 06:08 Diabetes panel 03/06/20 Range/Units 06:08 Sodium 150 H D (137-145) mmol/L Potassium 4.4 (3.6-5.0) mmol/L Chloride 106.5 (98-107) mmol/L Carbon Dioxide 39 H D (22-30) mmol/L BUN 23 H (9-20) mg/dL Creatinine < 0.2 L (0.8-1.3) mg/dL Glucose 144 H (75-100) mg/dL Calcium 8.9 (8.4-10.2) mg/dL AST 17 (5-40) units/L ALT 18 (7-56) units/L Alkaline Phosphatase 60 (35-129) units/L Total Protein 6.7 (6.3-8.2) g/dL Albumin 3.3 L (3.9-5) g/dL Calcium panel 03/06/20 Range/Units 06:08 Calcium 8.9 (8.4-10.2) mg/dL Albumin 3.3 L (3.9-5) g/dL Pituitary panel 03/06/20 Range/Units 06:08 Sodium 150 H D (137-145) mmol/L Potassium 4.4 (3.6-5.0) mmol/L Chloride 106.5 (98-107) mmol/L Carbon Dioxide 39 H D (22-30) mmol/L BUN 23 H (9-20) mg/dL Creatinine < 0.2 L (0.8-1.3) mg/dL Glucose 144 H (75-100) mg/dL Calcium 8.9 (8.4-10.2) mg/dL Adrenal panel 03/06/20 Range/Units 06:08 Sodium 150 H D (137-145) mmol/L Potassium 4.4 (3.6-5.0) mmol/L Chloride 106.5 (98-107) mmol/L Carbon Dioxide 39 H D (22-30) mmol/L BUN 23 H (9-20) mg/dL Creatinine < 0.2 L (0.8-1.3) mg/dL Glucose 144 H (75-100) mg/dL Calcium 8.9 (8.4-10.2) mg/dL Total Bilirubin 0.60 (0.1-1.2) mg/dL AST 17 (5-40) units/L ALT 18 (7-56) units/L Alkaline Phosphatase 60 (35-129) units/L Total Protein 6.7 (6.3-8.2) g/dL Albumin 3.3 L (3.9-5) g/dL
[2020-03-06] MEDS: ACETAMINOPHEN 325 MG TAB PO PRN (19:52)
[2020-03-06] MEDS: ENOXAPARIN 40 MG/0.4 ML INJ SUB-Q SCH (21:27)
[2020-03-07 05:29] LABS: Hematocrit 32.9 % (35.5-45.6); Hemoglobin 10.9 gm/dl (11.8-15.2); Mean Corpuscular HGB Conc 33 % (32-34); Mean Corpuscular Volume 85 fl (84-94); Platelet Count 739 K/mm3 (140-440); Red Blood Count 3.88 M/mm3 (3.65-5.03); Red Cell Distribution Width 15.5 % (13.2-15.2)
[2020-03-07 05:33] LABS: Basophils # (Auto) 0.1 K/mm3 (0.0-0.1); Basophils % (Auto) 0.3 % (0.0-1.8); Eosinophils # (Auto) 0.1 K/mm3 (0.0-0.4); Eosinophils % (Auto) 0.4 % (0.0-4.3); Lymphocytes # (Auto) 1.7 K/mm3 (1.2-5.4); Lymphocytes % (Auto) 7.8 % (13.4-35.0); Monocytes # (Auto) 1.3 K/mm3 (0.0-0.8)
[2020-03-07 05:52] LABS: Alanine Aminotransferase 20 units/L (7-56); Albumin 3.7 g/dL (3.9-5); Blood Urea Nitrogen 20 mg/dL (9-20); Calcium 9.5 mg/dL (8.4-10.2); Hemolysis Index 2
[2020-03-07 05:56] LABS: BUN/Creatinine Ratio 100
[2020-03-07] MEDS ORDERED: LIDOCAINE 1%/EPINEPHRINE 1:100,000 VIAL (20 ML) INFILTRATI ONE (07:15)
[2020-03-07] MEDS ORDERED: BUPIVACAINE/PF (0.5%) 5 MG/1 ML 10 ML VIAL INFILTRATI ONE (07:16)
--- NOTE | 2020-03-07 07:17 | Anesthesia Consultation ---
Anesthesia Consult and Med Hx Date of service: 03/07/20 - Airway Anesthetic Teeth Evaluation: Good ROM Head & Neck: Adequate Mental/Hyoid Distance: Adequate Mallampati Class: Class I - Pulmonary Exam CTA: Yes - Cardiac Exam Cardiac Exam: RRR - Pre-Operative Health Status ASA Pre-Surgery Classification: ASA4 Proposed Anesthetic Plan: General - Pulmonary Hx Asthma: No Hx Respiratory Symptoms: Yes (Acute resp failure) SOB: Yes COPD: No Home Oxygen Therapy: Yes Hx Pneumonia: Yes - Central Nervous System Hx Neuromuscular Disorder: Yes (Advance ALS) - Endocrine Hx End Stage Renal Disease: No - Additional Comments Anesthesia Medical History Comments: covid(-) on admission
--- NOTE | 2020-03-07 07:18 | Anesthesia Day of Surgery ---
Anesthesia Day of Surgery - Day of Surgery Patient Examined: Yes Patient H&P Reviewed: Yes Patient is NPO: Yes (tube feeds on hold >8hrs)
[2020-03-07] MEDS ORDERED: BUPIVACAINE-EPINEPHRINE/PF 0.5%-1:200,000 (10 ML) VIAL INFILTRATI ONE ×2 (07:23→08:01)
[2020-03-07] MEDS ORDERED: MIDAZOLAM 2 MG/2 ML INJ ONE (07:33)
[2020-03-07] MEDS ORDERED: ROCURONIUM 50 MG/5 ML INJ IV ONE (07:33)
[2020-03-07] MEDS ORDERED: ONDANSETRON 4 MG/2 ML INJ ONE (08:00)
[2020-03-07] MEDS ORDERED: SODIUM CHLORIDE 0.9% IRR 1,500 ML BOTTLE IR ONE ×2 (08:04→08:49)
[2020-03-07] MEDS ORDERED: PHENYLEPHRINE/NS 1,000 MCG/10 ML SYRINGE (OR USE) IV ONE (08:07)
[2020-03-07] MEDS ORDERED: HETASTARCH 6% 500 ML IV ONE (08:07)
[2020-03-07] MEDS ORDERED: LACTATED RINGERS 1,000 ML ONE (08:07)
--- NOTE | 2020-03-07 08:35 | Procedure Note ---
Date of procedure: 03/07/20 Pre-op diagnosis: Respiratory failure Post-op diagnosis: same Procedure: Open tracheostomy Description of procedure: Pt was placed supine on the OR table. Neck was maximally extended in the midline and the neck prepped and draped. A small transverse incision was made in the lower neck. SQ tissue and platysma were divided with the Bovie. Deep cervical fascia was divided in the midline. Anterior trachea was exposed. The 2nd tracheal ring was identified. An "H" shaped incision was made in the 2nd tracheal ring. The ET tube was slowly withdrawn and was replaced with a #8 cuffed Shiley tracheostomy tube. Cuff was inflated and good end tidal CO2 was obtained. Strap muscles were approximated with interrupted sutures of 3-0 Vicryl. Skin was approximated with interrupted, vertical mattress sutures of 3-0 Nylon. A slitted gauze was placed under the trach cuff and the tracheostomy tube secured with the velcro strap about the pt's neck. Pt tolerated the procedure well. Pt was taken back to ICU in stable condition. Anesthesia: GETA Surgeon: JULISSA LUNDBERG Estimated blood loss: minimal Pathology: none Condition: stable Disposition: ICU
--- NOTE | 2020-03-07 09:39 | Post Anesthesia Evaluation ---
- Post Anesthesia Evaluation Patient Participated: No Airway Patent: Yes Stable Respiratory Function: Yes Nausea/Vomiting: No Temp > 96.8F: Yes Pain Manageable: Yes Adequeate Hydration: Yes Anesthesia Complications: No Block Receding Appropriately: Not Applicable Patient on Ventilator: Yes
[2020-03-07] MEDS: LANSOPRAZOLE 30 MG SOLUTAB FEEDTUBE SCH (10:49)
[2020-03-07] MEDS: METOPROLOL TARTRATE 25 MG TAB PO SCH ×2 (10:49→22:23)
--- NOTE | 2020-03-07 12:15 | Progress Note ---
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 Respiratory Failure Severe Sepsis with Shock Bilateral Pneumonia (Possible aspiration) History of ALS on Trilogy Oropharyngeal Dysphagia PUI-COVID Acute toxic metabolic encephalopathy Elevated D-dimer Elevated troponin possibly type 2 ischemia - place 25 mics/hr fentanyl patch X 1 dose - resume Daily SAT and SBT assessment as tolerated in am - wound care per RN/WCN - continue care as below otherwise; - continue Scopolamine patch for secretion control - wean supplemental oxygen for target O2 sat's > 92% acutely - bronchodilators with pulmonary hygiene per RT - VAP bundle addressed - continue lung protective strategies - continue bronchodilators with pulmonary hygiene per RT - wean per pulmonary driven protocols otherwise - sedation prn for target RASS 0 to -1 - empiric antiinfectives per ID rec's (Rocephin and Zithromax) - COVID-19 isolation (Airborne & Contact) - empiric Dexamethasonme - follow COVID-19 test results - trend inflammatory markers to aid clinical decision making - enteral nutrition at goal rate as tolerated - Aspiration precautions - accuchecks with glycemic control per SSI (While critically ill target blood glucose of 140-180 mg/dL; avoid hypoglycemia) - avoid nephrotoxins, renally dose all medications - avoid benzodiazepine's, reduce the possibility of delirium - prn analgesia per CPOT score - Maintenance of sleep-wake cycle, avoid delirium - aspiration precautions - G.I. & VTE prophylaxis - PT/OT/ROM exercises - mobility protocols for pressure ulcer prophylaxis - Monitor hemodynamics closely - continue other care per attending / other consultants - discharge planning ongoing concurrently .... Re-evaluate in am & prn CONDITION: CRITICAL PROGNOSIS: GUARDED CODE STATUS: FULL CODE The high probability of a clinically significant, sudden or life-threatening deterioration of the [respiratory, cardiovascular & neurologic] system(s) requ ired my full and direct attention, intervention and personal management. The aggregate critical care time was [34] minutes without overlap. Time includes spent on; [x] Data Review and interpretation [x] Patient assessment and monitoring of vital signs [x] Documentation [x] Medication orders and management Subjective Date of service: 03/07/20 Principal diagnosis: Ac on Ch Hypercapnic & hypoxemic Resp Failure; Severe Sepsis; Jamar PNA; ALS Interval history: Patient is seen today for: Acute on Chronic Hypercapnic & hypoxemic Respiratory Failure; Severe Sepsis with Shock; Bilateral Pneumonia (Possible aspiration); History of ALS on Trilogy; PUI-COVID; Acute toxic metabolic encephalopathy Seen and examined at bedside; 24hour events reviewed; nursing and respiratory care staff consulted; no adverse overnight events reported to me; resting in be d; remains on MVS; s/p tracheostomy; complains of pain; No N/V/F/C Objective Vital Signs - 12hr 03/07/20 03/07/20 03/07/20 00:30 01:00 01:30 Temperature Pulse Rate 98 H 101 H 105 H Pulse Rate [ From Monitor] Respiratory 14 12 16 Rate Blood Pressure 136/92 142/92 144/93 O2 Sat by Pulse 97 97 97 Oximetry 03/07/20 03/07/20 03/07/20 02:00 02:30 03:00 Temperature Pulse Rate 106 H 102 H 107 H Pulse Rate [ From Monitor] Respiratory 15 12 15 Rate Blood Pressure 142/93 149/94 146/97 O2 Sat by Pulse 96 96 96 Oximetry 03/07/20 03/07/20 03/07/20 03:30 04:00 04:30 Temperature 100.1 F H Pulse Rate 104 H 109 H 93 H Pulse Rate [ 104 H From Monitor] Respiratory 16 14 13 Rate Blood Pressure 159/94 142/91 137/91 O2 Sat by Pulse 97 97 97 Oximetry 03/07/20 03/07/20 03/07/20 05:00 05:03 05:30 Temperature Pulse Rate 111 H 98 H 109 H Pulse Rate [ From Monitor] Respiratory 13 17 Rate Blood Pressure 144/97 144/97 143/97 O2 Sat by Pulse 96 97 96 Oximetry 03/07/20 03/07/20 03/07/20 06:00 06:30 07:00 Temperature Pulse Rate 115 H 109 H 105 H Pulse Rate [ From Monitor] Respiratory 17 15 14 Rate Blood Pressure 151/101 150/96 148/98 O2 Sat by Pulse 97 96 96 Oximetry 03/07/20 03/07/20 03/07/20 07:06 08:00 08:40 Temperature Pulse Rate 93 H 88 Pulse Rate [ 104 H From Monitor] Respiratory 15 13 Rate Blood Pressure 148/98 117/78 O2 Sat by Pulse 96 97 99 Oximetry 03/07/20 03/07/20 03/07/20 08:46 09:00 09:30 Temperature Pulse Rate 95 H 101 H 86 Pulse Rate [ From Monitor] Respiratory 12 12 Rate Blood Pressure 117/78 114/82 120/80 O2 Sat by Pulse 99 98 97 Oximetry 03/07/20 03/07/20 03/07/20 10:00 10:30 10:49 Temperature Pulse Rate 95 H 92 H 95 H Pulse Rate [ From Monitor] Respiratory 12 12 Rate Blood Pressure 128/88 128/86 128/86 O2 Sat by Pulse 98 97 Oximetry 03/07/20 03/07/20 11:00 11:02 Temperature Pulse Rate 90 85 Pulse Rate [ From Monitor] Respiratory 12 Rate Blood Pressure 136/89 136/89 O2 Sat by Pulse 97 97 Oximetry Constitutional: no acute distress, other (thin middle aged male with mildly increased respiratory effort at rest on MVS) Eyes: non-icteric ENT: oropharynx moist, other (S/P Tracheostomy) Neck: supple, no lymphadenopathy, no JVD Effort: mildly labored Ascultation: Bilateral: diminished breath sounds, rhonchi (scant in bases) Percussion: Bilateral: not dull Cardiovascular: regular rate and rhythm, other (S1,S2, no murmurs) Gastrointestinal: normoactive bowel sounds, soft, non-tender, non-distended Integumentary: normal, decubitus ulcer (sacral / gluteal) Extremities: no cyanosis, no edema, pulses normal, other (atrophic looking limbs) Neurologic: pupils equal and round, other (motor strength in extremities 1-2/5) Psychiatric: mood appropriate, affect normal CBC and BMP: 03/07/20 04:25 03/07/20 04:25 ABG, PT/INR, D-dimer: ABG ABG pH 7.417 pH Units (7.350-7.450) 03/06/20 04:34 POC ABG pCO2 46.9 mmHg (32.0-48.0) 03/03/20 10:21 ABG pCO2 60.1 mm Hg 03/06/20 04:34 POC ABG pO2 83.0 mmHg (83-108) 03/03/20 10:21 ABG pO2 88.6 mm Hg (80.0-90.0) 03/06/20 04:34 POC ABG HCO3 30.7 03/03/20 10:21 ABG O2 Saturation 97.0 % (95.0-99.0) 03/06/20 04:34 PT/INR, D-dimer PT 15.6 Sec. (12.2-14.9) H 02/24/20 09:19 INR 1.21 (0.87-1.13) H 02/24/20 09:19 D-Dimer 1311.96 ng/mlDDU (0-234) H 02/24/20 09:19 Abnormal lab findings: Abnormal Labs 02/24/20 02/24/20 02/24/20 09:19 09:19 09:19 WBC 20.2 H RBC 5.05 H Hgb Hct MCV MCH RDW 15.3 H Plt Count Lymph % (Auto) Leon # (Auto) Seg Neutrophils % Seg Neuts % (Manual) 86.0 H Lymphocytes % (Manual) 1.0 L Monocytes % (Manual) Seg Neutrophils # Seg Neutrophils # Man 17.4 H Lymphocytes # (Manual) 0.2 L Monocytes # (Manual) Eosinophils # (Manual) PT 15.6 H INR 1.21 H D-Dimer 1311.96 H ABG pH POC ABG pCO2 POC ABG pO2 ABG pO2 ABG HCO3 ABG O2 Saturation ABG Base Excess ABG Hemoglobin ABG Oxyhemoglobin ABG Potassium ABG Glucose Oxyhemoglobin Carboxyhemoglobin Sodium 135 L Potassium 3.2 L Chloride 92.2 L Carbon Dioxide BUN 6 L Creatinine < 0.2 L Glucose 124 H POC Glucose Ferritin Total Bilirubin 2.30 H Alkaline Phosphatase 132 H Lactate Dehydrogenase Troponin T 0.080 H C-Reactive Protein Albumin 3.6 L Prealbumin LDL Cholesterol Direct 41 L Arterial Blood Glucose Arterial Blood Ionized Calcium 02/24/20 02/24/20 02/24/20 09:19 09:58 10:01 WBC RBC Hgb Hct MCV MCH RDW Plt Count Lymph % (Auto) Leon # (Auto) Seg Neutrophils % Seg Neuts % (Manual) Lymphocytes % (Manual) Monocytes % (Manual) Seg Neutrophils # Seg Neutrophils # Man Lymphocytes # (Manual) Monocytes # (Manual) Eosinophils # (Manual) PT INR D-Dimer ABG pH 7.176 L* POC ABG pCO2 POC ABG pO2 ABG pO2 91.2 H ABG HCO3 ABG O2 Saturation ABG Base Excess -4.6 L ABG Hemoglobin ABG Oxyhemoglobin ABG Potassium ABG Glucose Oxyhemoglobin 92.6 L Carboxyhemoglobin Sodium Potassium Chloride Carbon Dioxide BUN Creatinine Glucose POC Glucose Ferritin 1715.0 H Total Bilirubin Alkaline Phosphatase Lactate Dehydrogenase 303 H Troponin T C-Reactive Protein 26.10 H Albumin Prealbumin LDL Cholesterol Direct Arterial Blood Glucose Arterial Blood Ionized Calcium 02/24/20 02/24/20 02/24/20 11:52 13:45 19:35 WBC RBC Hgb Hct MCV MCH RDW Plt Count Lymph % (Auto) Leon # (Auto) Seg Neutrophils % Seg Neuts % (Manual) Lymphocytes % (Manual) Monocytes % (Manual) Seg Neutrophils # Seg Neutrophils # Man Lymphocytes # (Manual) Monocytes # (Manual) Eosinophils # (Manual) PT INR D-Dimer ABG pH 7.051 L* 7.300 L POC ABG pCO2 POC ABG pO2 ABG pO2 94.7 H 75.1 L ABG HCO3 18.0 L ABG O2 Saturation 93.5 L ABG Base Excess -6.8 L -7.8 L ABG Hemoglobin 13.2 L 11.9 L ABG Oxyhemoglobin ABG Potassium ABG Glucose Oxyhemoglobin 91.0 L 92.7 L Carboxyhemoglobin Sodium Potassium Chloride Carbon Dioxide BUN Creatinine Glucose POC Glucose Ferritin Total Bilirubin Alkaline Phosphatase Lactate Dehydrogenase Troponin T 0.034 H D C-Reactive Protein Albumin Prealbumin LDL Cholesterol Direct Arterial Blood Glucose Arterial Blood Ionized Calcium 02/25/20 02/25/20 02/25/20 04:00 04:00 12:26 WBC 22.9 H RBC Hgb Hct MCV 83 L MCH 27 L RDW Plt Count 468 H Lymph % (Auto) Leon # (Auto) Seg Neutrophils % Seg Neuts % (Manual) 89.0 H Lymphocytes % (Manual) 7.0 L Monocytes % (Manual) Seg Neutrophils # Seg Neutrophils # Man 20.4 H Lymphocytes # (Manual) Monocytes # (Manual) Eosinophils # (Manual) PT INR D-Dimer ABG pH POC ABG pCO2 POC ABG pO2 ABG pO2 ABG HCO3 ABG O2 Saturation ABG Base Excess ABG Hemoglobin ABG Oxyhemoglobin ABG Potassium 2.6 L ABG Glucose 142 H Oxyhemoglobin Carboxyhemoglobin Sodium Potassium 3.2 L Chloride Carbon Dioxide 18 L BUN Creatinine 0.2 L Glucose 114 H POC Glucose Ferritin Total Bilirubin Alkaline Phosphatase Lactate Dehydrogenase Troponin T C-Reactive Protein Albumin 3.5 L Prealbumin LDL Cholesterol Direct Arterial Blood Glucose 142 H Arterial Blood Ionized Calcium 02/26/20 02/26/2020 15:58 17:00 23:43 WBC RBC Hgb Hct MCV MCH RDW Plt Count Lymph % (Auto) Leon # (Auto) Seg Neutrophils % Seg Neuts % (Manual) Lymphocytes % (Manual) Monocytes % (Manual) Seg Neutrophils # Seg Neutrophils # Man Lymphocytes # (Manual) Monocytes # (Manual) Eosinophils # (Manual) PT INR D-Dimer ABG pH 7.502 H POC ABG pCO2 POC ABG pO2 213.6 H ABG pO2 ABG HCO3 ABG O2 Saturation ABG Base Excess ABG Hemoglobin ABG Oxyhemoglobin 99.2 H ABG Potassium 2.9 L ABG Glucose 160 H Oxyhemoglobin Carboxyhemoglobin 0.4 L Sodium Potassium Chloride Carbon Dioxide BUN Creatinine Glucose POC Glucose 189 H 120 H Ferritin Total Bilirubin Alkaline Phosphatase Lactate Dehydrogenase Troponin T C-Reactive Protein Albumin Prealbumin LDL Cholesterol Direct Arterial Blood Glucose 160 H Arterial Blood Ionized Calcium 4.5 L 02/27/20 02/27/20 02/27/20 05:00 07:04 17:45 WBC RBC Hgb Hct MCV MCH RDW Plt Count Lymph % (Auto) Leon # (Auto) Seg Neutrophils % Seg Neuts % (Manual) Lymphocytes % (Manual) Monocytes % (Manual) Seg Neutrophils # Seg Neutrophils # Man Lymphocytes # (Manual) Monocytes # (Manual) Eosinophils # (Manual) PT INR D-Dimer ABG pH 7.524 H POC ABG pCO2 POC ABG pO2 ABG pO2 ABG HCO3 ABG O2 Saturation ABG Base Excess ABG Hemoglobin ABG Oxyhemoglobin ABG Potassium 3.0 L ABG Glucose 143 H Oxyhemoglobin Carboxyhemoglobin Sodium Potassium Chloride Carbon Dioxide BUN Creatinine Glucose POC Glucose 154 H 175 H Ferritin Total Bilirubin Alkaline Phosphatase Lactate Dehydrogenase Troponin T C-Reactive Protein Albumin Prealbumin LDL Cholesterol Direct Arterial Blood Glucose 143 H Arterial Blood Ionized Calcium 02/27/20 02/28/20 02/28/20 Unknown 00:21 04:15 WBC 18.7 H RBC Hgb Hct MCV MCH RDW Plt Count Lymph % (Auto) 8.7 L Leon # (Auto) 1.2 H Seg Neutrophils % 84.6 H Seg Neuts % (Manual) Lymphocytes % (Manual) Monocytes % (Manual) Seg Neutrophils # 15.9 H Seg Neutrophils # Man Lymphocytes # (Manual) Monocytes # (Manual) Eosinophils # (Manual) PT INR D-Dimer ABG pH POC ABG pCO2 POC ABG pO2 ABG pO2 ABG HCO3 ABG O2 Saturation ABG Base Excess ABG Hemoglobin ABG Oxyhemoglobin ABG Potassium ABG Glucose Oxyhemoglobin Carboxyhemoglobin Sodium Potassium 2.9 L* Chloride Carbon Dioxide 33 H D BUN Creatinine < 0.2 L Glucose 157 H POC Glucose 134 H Ferritin Total Bilirubin Alkaline Phosphatase Lactate Dehydrogenase Troponin T C-Reactive Protein Albumin Prealbumin LDL Cholesterol Direct Arterial Blood Glucose Arterial Blood Ionized Calcium 02/28/20 02/28/20 02/28/20 04:15 05:16 05:39 WBC RBC Hgb Hct MCV MCH RDW Plt Count Lymph % (Auto) Leon # (Auto) Seg Neutrophils % Seg Neuts % (Manual) Lymphocytes % (Manual) Monocytes % (Manual) Seg Neutrophils # Seg Neutrophils # Man Lymphocytes # (Manual) Monocytes # (Manual) Eosinophils # (Manual) PT INR D-Dimer ABG pH POC ABG pCO2 POC ABG pO2 ABG pO2 142.9 H ABG HCO3 34.1 H ABG O2 Saturation ABG Base Excess 8.3 H ABG Hemoglobin ABG Oxyhemoglobin ABG Potassium ABG Glucose Oxyhemoglobin Carboxyhemoglobin Sodium 151 H Potassium Chloride Carbon Dioxide 32 H BUN Creatinine 0.2 L Glucose 167 H POC Glucose 138 H Ferritin Total Bilirubin Alkaline Phosphatase Lactate Dehydrogenase Troponin T C-Reactive Protein Albumin Prealbumin LDL Cholesterol Direct Arterial Blood Glucose Arterial Blood Ionized Calcium 02/28/20 02/28/20 02/28/20 11:05 11:33 12:54 WBC RBC Hgb Hct MCV MCH RDW Plt Count Lymph % (Auto) Leon # (Auto) Seg Neutrophils % Seg Neuts % (Manual) Lymphocytes % (Manual) Monocytes % (Manual) Seg Neutrophils # Seg Neutrophils # Man Lymphocytes # (Manual) Monocytes # (Manual) Eosinophils # (Manual) PT INR D-Dimer ABG pH POC ABG pCO2 POC ABG pO2 ABG pO2 ABG HCO3 ABG O2 Saturation ABG Base Excess ABG Hemoglobin ABG Oxyhemoglobin ABG Potassium ABG Glucose Oxyhemoglobin Carboxyhemoglobin Sodium Potassium Chloride Carbon Dioxide BUN Creatinine Glucose POC Glucose 160 H Ferritin Total Bilirubin Alkaline Phosphatase Lactate Dehydrogenase Troponin T C-Reactive Protein 4.70 H Albumin Prealbumin 0.090 L LDL Cholesterol Direct Arterial Blood Glucose Arterial Blood Ionized Calcium 02/28/20 02/29/20 02/29/20 17:34 00:44 04:05 WBC 19.6 H RBC Hgb Hct MCV MCH 27 L RDW 15.4 H Plt Count Lymph % (Auto) Leon # (Auto) Seg Neutrophils % Seg Neuts % (Manual) 86.0 H Lymphocytes % (Manual) 7.0 L Monocytes % (Manual) Seg Neutrophils # Seg Neutrophils # Man 16.9 H Lymphocytes # (Manual) Monocytes # (Manual) 1.2 H Eosinophils # (Manual) PT INR D-Dimer ABG pH POC ABG pCO2 POC ABG pO2 ABG pO2 ABG HCO3 ABG O2 Saturation ABG Base Excess ABG Hemoglobin ABG Oxyhemoglobin ABG Potassium ABG Glucose Oxyhemoglobin Carboxyhemoglobin Sodium Potassium Chloride Carbon Dioxide BUN Creatinine Glucose POC Glucose 136 H 156 H Ferritin Total Bilirubin Alkaline Phosphatase Lactate Dehydrogenase Troponin T C-Reactive Protein Albumin Prealbumin LDL Cholesterol Direct Arterial Blood Glucose Arterial Blood Ionized Calcium 02/29/20 02/29/20 02/29/20 04:05 05:14 05:33 WBC RBC Hgb Hct MCV MCH RDW Plt Count Lymph % (Auto) Leon # (Auto) Seg Neutrophils % Seg Neuts % (Manual) Lymphocytes % (Manual) Monocytes % (Manual) Seg Neutrophils # Seg Neutrophils # Man Lymphocytes # (Manual) Monocytes # (Manual) Eosinophils # (Manual) PT INR D-Dimer ABG pH POC ABG pCO2 54.3 H POC ABG pO2 124.8 H ABG pO2 ABG HCO3 ABG O2 Saturation ABG Base Excess ABG Hemoglobin ABG Oxyhemoglobin ABG Potassium ABG Glucose 185 H Oxyhemoglobin Carboxyhemoglobin Sodium 148 H Potassium Chloride Carbon Dioxide 33 H BUN Creatinine < 0.2 L Glucose 173 H POC Glucose 152 H Ferritin Total Bilirubin Alkaline Phosphatase Lactate Dehydrogenase Troponin T C-Reactive Protein Albumin Prealbumin LDL Cholesterol Direct Arterial Blood Glucose 185 H Arterial Blood Ionized Calcium 03/01/20 03/01/20 03/01/20 00:00 03:45 04:33 WBC 23.1 H RBC Hgb Hct MCV MCH 27 L RDW 15.3 H Plt Count Lymph % (Auto) Leon # (Auto) Seg Neutrophils % Seg Neuts % (Manual) 92.0 H Lymphocytes % (Manual) 6.0 L Monocytes % (Manual) Seg Neutrophils # Seg Neutrophils # Man 21.3 H Lymphocytes # (Manual) Monocytes # (Manual) Eosinophils # (Manual) 0.5 H PT INR D-Dimer ABG pH 7.492 H POC ABG pCO2 POC ABG pO2 ABG pO2 157.1 H ABG HCO3 32.3 H ABG O2 Saturation ABG Base Excess 8.1 H ABG Hemoglobin 13.2 L ABG Oxyhemoglobin ABG Potassium ABG Glucose Oxyhemoglobin Carboxyhemoglobin Sodium Potassium Chloride Carbon Dioxide BUN Creatinine Glucose POC Glucose 109 H Ferritin Total Bilirubin Alkaline Phosphatase Lactate Dehydrogenase Troponin T C-Reactive Protein Albumin Prealbumin LDL Cholesterol Direct Arterial Blood Glucose Arterial Blood Ionized Calcium 03/01/20 03/01/20 03/01/20 04:33 05:29 12:32 WBC RBC Hgb Hct MCV MCH RDW Plt Count Lymph % (Auto) Leon # (Auto) Seg Neutrophils % Seg Neuts % (Manual) Lymphocytes % (Manual) Monocytes % (Manual) Seg Neutrophils # Seg Neutrophils # Man Lymphocytes # (Manual) Monocytes # (Manual) Eosinophils # (Manual) PT INR D-Dimer ABG pH POC ABG pCO2 POC ABG pO2 ABG pO2 ABG HCO3 ABG O2 Saturation ABG Base Excess ABG Hemoglobin ABG Oxyhemoglobin ABG Potassium ABG Glucose Oxyhemoglobin Carboxyhemoglobin Sodium 146 H Potassium Chloride Carbon Dioxide 32 H BUN Creatinine < 0.2 L Glucose 120 H POC Glucose 120 H 128 H Ferritin Total Bilirubin Alkaline Phosphatase Lactate Dehydrogenase Troponin T C-Reactive Protein Albumin Prealbumin LDL Cholesterol Direct Arterial Blood Glucose Arterial Blood Ionized Calcium 03/01/20 03/01/20 03/02/20 17:38 23:46 06:13 WBC RBC Hgb Hct MCV MCH RDW Plt Count Lymph % (Auto) Leon # (Auto) Seg Neutrophils % Seg Neuts % (Manual) Lymphocytes % (Manual) Monocytes % (Manual) Seg Neutrophils # Seg Neutrophils # Man Lymphocytes # (Manual) Monocytes # (Manual) Eosinophils # (Manual) PT INR D-Dimer ABG pH POC ABG pCO2 POC ABG pO2 ABG pO2 ABG HCO3 ABG O2 Saturation ABG Base Excess ABG Hemoglobin ABG Oxyhemoglobin ABG Potassium ABG Glucose Oxyhemoglobin Carboxyhemoglobin Sodium Potassium Chloride Carbon Dioxide BUN Creatinine Glucose POC Glucose 114 H 121 H 120 H Ferritin Total Bilirubin Alkaline Phosphatase Lactate Dehydrogenase Troponin T C-Reactive Protein Albumin Prealbumin LDL Cholesterol Direct Arterial Blood Glucose Arterial Blood Ionized Calcium 03/02/20 03/02/20 03/03/20 09:47 09:47 10:21 WBC 23.6 H RBC Hgb Hct MCV MCH RDW 15.3 H Plt Count 494 H Lymph % (Auto) Leon # (Auto) Seg Neutrophils % Seg Neuts % (Manual) 85.0 H Lymphocytes % (Manual) 6.0 L Monocytes % (Manual) Seg Neutrophils # Seg Neutrophils # Man 20.1 H Lymphocytes # (Manual) Monocytes # (Manual) 1.7 H Eosinophils # (Manual) PT INR D-Dimer ABG pH POC ABG pCO2 POC ABG pO2 ABG pO2 ABG HCO3 ABG O2 Saturation ABG Base Excess ABG Hemoglobin ABG Oxyhemoglobin ABG Potassium 3.3 L ABG Glucose 158 H Oxyhemoglobin Carboxyhemoglobin Sodium Potassium Chloride Carbon Dioxide BUN Creatinine < 0.2 L Glucose 177 H POC Glucose Ferritin Total Bilirubin Alkaline Phosphatase Lactate Dehydrogenase Troponin T C-Reactive Protein Albumin Prealbumin LDL Cholesterol Direct Arterial Blood Glucose 158 H Arterial Blood Ionized Calcium 03/03/20 03/04/20 03/04/20 21:30 00:00 12:23 WBC RBC Hgb Hct MCV MCH RDW Plt Count Lymph % (Auto) Leon # (Auto) Seg Neutrophils % Seg Neuts % (Manual) Lymphocytes % (Manual) Monocytes % (Manual) Seg Neutrophils # Seg Neutrophils # Man Lymphocytes # (Manual) Monocytes # (Manual) Eosinophils # (Manual) PT INR D-Dimer ABG pH 7.328 L POC ABG pCO2 POC ABG pO2 ABG pO2 68.4 L ABG HCO3 35.0 H ABG O2 Saturation 93.9 L ABG Base Excess 6.8 H ABG Hemoglobin 12.7 L ABG Oxyhemoglobin ABG Potassium ABG Glucose Oxyhemoglobin 91.9 L Carboxyhemoglobin Sodium Potassium Chloride Carbon Dioxide BUN Creatinine Glucose POC Glucose 187 H 163 H Ferritin Total Bilirubin Alkaline Phosphatase Lactate Dehydrogenase Troponin T C-Reactive Protein Albumin Prealbumin LDL Cholesterol Direct Arterial Blood Glucose Arterial Blood Ionized Calcium 03/04/20 03/04/20 03/05/20 18:15 21:30 06:02 WBC RBC Hgb Hct MCV MCH RDW Plt Count Lymph % (Auto) Leon # (Auto) Seg Neutrophils % Seg Neuts % (Manual) Lymphocytes % (Manual) Monocytes % (Manual) Seg Neutrophils # Seg Neutrophils # Man Lymphocytes # (Manual) Monocytes # (Manual) Eosinophils # (Manual) PT INR D-Dimer ABG pH 7.297 L POC ABG pCO2 POC ABG pO2 ABG pO2 ABG HCO3 41.0 H ABG O2 Saturation ABG Base Excess 11.0 H ABG Hemoglobin 13.1 L ABG Oxyhemoglobin ABG Potassium ABG Glucose Oxyhemoglobin 94.5 L Carboxyhemoglobin Sodium Potassium Chloride Carbon Dioxide BUN Creatinine Glucose POC Glucose 192 H 127 H Ferritin Total Bilirubin Alkaline Phosphatase Lactate Dehydrogenase Troponin T C-Reactive Protein Albumin Prealbumin LDL Cholesterol Direct Arterial Blood Glucose Arterial Blood Ionized Calcium 03/05/20 03/05/20 03/06/20 12:09 16:42 00:24 WBC RBC Hgb Hct MCV MCH RDW Plt Count Lymph % (Auto) Leon # (Auto) Seg Neutrophils % Seg Neuts % (Manual) Lymphocytes % (Manual) Monocytes % (Manual) Seg Neutrophils # Seg Neutrophils # Man Lymphocytes # (Manual) Monocytes # (Manual) Eosinophils # (Manual) PT INR D-Dimer ABG pH POC ABG pCO2 POC ABG pO2 ABG pO2 ABG HCO3 ABG O2 Saturation ABG Base Excess ABG Hemoglobin ABG Oxyhemoglobin ABG Potassium ABG Glucose Oxyhemoglobin Carboxyhemoglobin Sodium Potassium Chloride Carbon Dioxide BUN Creatinine Glucose POC Glucose 147 H 114 H 134 H Ferritin Total Bilirubin Alkaline Phosphatase Lactate Dehydrogenase Troponin T C-Reactive Protein Albumin Prealbumin LDL Cholesterol Direct Arterial Blood Glucose Arterial Blood Ionized Calcium 03/06/20 03/06/20 03/06/20 04:34 05:53 06:08 WBC 25.4 H RBC Hgb 10.5 L Hct 32.7 L MCV MCH 27 L RDW 15.3 H Plt Count 634 H Lymph % (Auto) Leon # (Auto) Seg Neutrophils % Seg Neuts % (Manual) 88.0 H Lymphocytes % (Manual) 2.0 L Monocytes % (Manual) 8.0 H Seg Neutrophils # Seg Neutrophils # Man 22.4 H Lymphocytes # (Manual) 0.5 L Monocytes # (Manual) 2.0 H Eosinophils # (Manual) PT INR D-Dimer ABG pH POC ABG pCO2 POC ABG pO2 ABG pO2 ABG HCO3 37.9 H ABG O2 Saturation ABG Base Excess 11.4 H ABG Hemoglobin 10.6 L ABG Oxyhemoglobin ABG Potassium ABG Glucose Oxyhemoglobin 94.7 L Carboxyhemoglobin Sodium Potassium Chloride Carbon Dioxide BUN Creatinine Glucose POC Glucose 135 H Ferritin Total Bilirubin Alkaline Phosphatase Lactate Dehydrogenase Troponin T C-Reactive Protein Albumin Prealbumin LDL Cholesterol Direct Arterial Blood Glucose Arterial Blood Ionized Calcium 03/06/20 03/06/20 03/06/20 06:08 12:19 19:10 WBC RBC Hgb Hct MCV MCH RDW Plt Count Lymph % (Auto) Leon # (Auto) Seg Neutrophils % Seg Neuts % (Manual) Lymphocytes % (Manual) Monocytes % (Manual) Seg Neutrophils # Seg Neutrophils # Man Lymphocytes # (Manual) Monocytes # (Manual) Eosinophils # (Manual) PT INR D-Dimer ABG pH POC ABG pCO2 POC ABG pO2 ABG pO2 ABG HCO3 ABG O2 Saturation ABG Base Excess ABG Hemoglobin ABG Oxyhemoglobin ABG Potassium ABG Glucose Oxyhemoglobin Carboxyhemoglobin Sodium 150 H D Potassium Chloride Carbon Dioxide 39 H D BUN 23 H Creatinine < 0.2 L Glucose 144 H POC Glucose 169 H 152 H Ferritin Total Bilirubin Alkaline Phosphatase Lactate Dehydrogenase Troponin T C-Reactive Protein Albumin 3.3 L Prealbumin LDL Cholesterol Direct Arterial Blood Glucose Arterial Blood Ionized Calcium 03/06/20 03/07/20 03/07/20 23:58 04:25 04:25 WBC 22.1 H RBC Hgb 10.9 L Hct 32.9 L MCV MCH RDW 15.5 H Plt Count 739 H Lymph % (Auto) 7.8 L Leon # (Auto) 1.3 H Seg Neutrophils % 85.5 H Seg Neuts % (Manual) Lymphocytes % (Manual) Monocytes % (Manual) Seg Neutrophils # 18.9 H Seg Neutrophils # Man Lymphocytes # (Manual) Monocytes # (Manual) Eosinophils # (Manual) PT INR D-Dimer ABG pH POC ABG pCO2 POC ABG pO2 ABG pO2 ABG HCO3 ABG O2 Saturation ABG Base Excess ABG Hemoglobin ABG Oxyhemoglobin ABG Potassium ABG Glucose Oxyhemoglobin Carboxyhemoglobin Sodium 146 H Potassium Chloride Carbon Dioxide 37 H BUN Creatinine < 0.2 L Glucose 118 H POC Glucose 111 H Ferritin Total Bilirubin Alkaline Phosphatase Lactate Dehydrogenase Troponin T C-Reactive Protein Albumin 3.7 L Prealbumin LDL Cholesterol Direct Arterial Blood Glucose Arterial Blood Ionized Calcium 03/07/20 05:20 WBC RBC Hgb Hct MCV MCH RDW Plt Count Lymph % (Auto) Leon # (Auto) Seg Neutrophils % Seg Neuts % (Manual) Lymphocytes % (Manual) Monocytes % (Manual) Seg Neutrophils # Seg Neutrophils # Man Lymphocytes # (Manual) Monocytes # (Manual) Eosinophils # (Manual) PT INR D-Dimer ABG pH POC ABG pCO2 POC ABG pO2 ABG pO2 ABG HCO3 ABG O2 Saturation ABG Base Excess ABG Hemoglobin ABG Oxyhemoglobin ABG Potassium ABG Glucose Oxyhemoglobin Carboxyhemoglobin Sodium Potassium Chloride Carbon Dioxide BUN Creatinine Glucose POC Glucose 113 H Ferritin Total Bilirubin Alkaline Phosphatase Lactate Dehydrogenase Troponin T C-Reactive Protein Albumin Prealbumin LDL Cholesterol Direct Arterial Blood Glucose Arterial Blood Ionized Calcium Chest x-ray: pending Allied health notes reviewed: nursing
--- NOTE | 2020-03-07 13:12 | XRay Report ---
XR abdomen 1V ap INDICATION / CLINICAL INFORMATION: ngt placement. COMPARISON: None available. FINDINGS: TUBES / LINES: Nasogastric tube terminates in the mid stomach. BOWEL GAS PATTERN: Nonobstructive bowel gas pattern. FREE AIR / EXTRALUMINAL GAS: None seen. ADDITIONAL FINDINGS: No significant additional findings. IMPRESSION: 1. NG tube terminates in the stomach. Signer Name: Rush Laws MD Signed: 03/07/2020 1:08 PM Workstation Name: [id number]
[2020-03-07] MEDS ORDERED: fentaNYL 25 MCG/HR PATCH 72HR TD SCH (14:00)
--- NOTE | 2020-03-07 14:31 | Progress Note ---
Assessment and Plan Cultures: Blood culture no growth today SARS CoV2 PCR negative Sputum culture 03/03/2020 Stenotrophomonas Blood culture 03/03/2020 no growth today Assessment: 59 years old female with history of ALS with chronic respiratory failure on home trilogy BiPAP, admitted on 02/24/2020 due to worsening shortness of breath for 24 hours: #Severe sepsis: likely due to bilateral pneumonia +/- left gluteal necrotic pres sure ulcer. New fever, remains with leukocytosis ? #Severe bilateral pneumonia: Likely community-acquired pneumonia. Procalcitonin elevated-1.13. CTA shows no PE but multifocal pneumonia with predominance left lower lobe. No DVT on US. Elevated D-dimer -1311. SARS-CoV-2 PCR negative. Sputum culture +Stenotrophomonas. CRP 26-->4. Prcal 1.1-->1.6. Repeat CXR near complete atelectasis resolved. #Left gluteal necrotic pressure ulcer: S/p debridement, not infected per wound care. #Acute on chronic mixed respiratory failure: Intubated, re intubated overnight. #ALS Recommendations: -Completed cefepime and vancomycin on 03/06 -Continue Levaquin 750 mg IV/PO daily for total 7 days for Stenotrophomonas pneumonia -Monitor fever and leukocytosis -Obtain new blood culture given new fever Will follow Diana Maravilla MD Infectious Diseases Chief Recordist [facility] M [phone] O [phone] Subjective Date of service: 03/07/20 Principal diagnosis: Ac on Ch Hypercapnic & hypoxemic Resp Failure; Severe Se psis; Jamar PNA; ALS Interval history: Remains intubated via trach, underwent trach placement yesterday, noted new fever 100.7 Objective - Exam Narrative Exam: General appearance: Intubated, alert follows commands Eyes: anicteric sclerae, moist conjunctivae; no lid-lag; PERRLA HENT: Normocephalic, Atraumatic; normal external ears, nares open, oropharynx limited Neck: Trach in place Lungs: Bilateral rhonchi CV: RRR no murmur Abdomen: Soft, non-tender; no masses or hepatosplenomegaly Extremities: no edema, no cyanosis Skin: No rash. per wound care Left buttock unstageable pressure ulcer measuring 4.5x7x0.9cm. Wound bed is 7o% necrotic. Small amounts of yellow drainage with a mild odor noted. Psych: no agitated Neuro: Alert on the ventilator - Constitutional Vitals: Vital Signs Temp Pulse Resp BP Pulse Ox 100.4 F H 90 12 132/93 96 03/07/20 12:00 03/07/20 14:02 03/07/20 13:00 03/07/20 14:02 03/07/20 14:02 Temperature -Last 24 Hours Temperature 100.4 F Temperature 100.1 F Temperature 100 F Temperature 100.7 F Temperature 99.2 F - Labs CBC & Chem 7: 03/07/20 04:25 03/07/20 04:25 Labs: Abnormal lab results 03/06/20 03/06/20 03/07/20 Range/Units 19:10 23:58 04:25 WBC 22.1 H (4.5-11.0) K/mm3 Hgb 10.9 L (11.8-15.2) gm/dl Hct 32.9 L (35.5-45.6) % RDW 15.5 H (13.2-15.2) % Plt Count 739 H (140-440) K/mm3 Lymph % (Auto) 7.8 L (13.4-35.0) % [place] # (Auto) 1.3 H (0.0-0.8) K/mm3 Seg Neutrophils % 85.5 H (40.0-70.0) % Seg Neutrophils # 18.9 H (1.8-7.7) K/mm3 Sodium (137-145) mmol/L Carbon Dioxide (22-30) mmol/L Creatinine (0.8-1.3) mg/dL Glucose (75-100) mg/dL POC Glucose 152 H 111 H (70-105) mg/dL Albumin (3.9-5) g/dL 03/07/20 03/07/20 Range/Units 04:25 05:20 WBC (4.5-11.0) K/mm3 Hgb (11.8-15.2) gm/dl Hct (35.5-45.6) % RDW (13.2-15.2) % Plt Count (140-440) K/mm3 Lymph % (Auto) (13.4-35.0) % [place] # (Auto) (0.0-0.8) K/mm3 Seg Neutrophils % (40.0-70.0) % Seg Neutrophils # (1.8-7.7) K/mm3 Sodium 146 H (137-145) mmol/L Carbon Dioxide 37 H (22-30) mmol/L Creatinine < 0.2 L (0.8-1.3) mg/dL Glucose 118 H (75-100) mg/dL POC Glucose 113 H (70-105) mg/dL Albumin 3.7 L (3.9-5) g/dL
[2020-03-07] MEDS: ACETAMINOPHEN 325 MG TAB PO PRN (16:55)
--- NOTE | 2020-03-07 17:53 | Progress Note ---
Assessment and Plan --Acute hypoxic hypercapnic respiratory failure; Intubated on mechanical ventilation. Etiology secondary to sepsis, ALS, multifocal pneumonia (Covid negative). S/p trach placement today --ALS; Chronic Continue to provide supportive care --Elevated D-dimers; CTA chest, lower extremity venous Doppler both are negative Lovenox for DVT prophylaxis --Bilateral pneumonia; probably community-acquired Continue cefepime and vancomycin ID recommendations appreciated --Sepsis secondary to pneumonia Continue cefepime and vancomycin --Elevated troponin; Serial cardiac enzymes, serial EKGs Echocardiogram, cardiology consult if needed --Hypernatremia Trend sodium Free water via feeding tube --DVT prophylaxis; Lovenox The high probability of a clinically significant, sudden or life threatening deterioration of the [cardiac and respiratory] system(s) required my full and direct attention, intervention and personal management. The aggregate critical care time was [34] minutes. This time is in addition to time spent performing reported procedures but includes the following: [x] Data Review and interpretation [x] Patient assessment and monitoring of vital signs [x] Documentation [x] Medication orders and management Brief history: 59-year-old male patient with significant past medical history of ALS, presented to ED with worsening shortness of breath since the morning [employer]. Patient was on a trilogy machine for breathing 18/11. EMS arrived, patient had O2 sats in the 80s. EMS attempted to place patient on their CPAP machine, however patient did not tolerate. Patient was admitted to the ICU with diagnosis of acute hypoxic respiratory failure and placed on BiPAP. Patient initially tolerated but later deteriorated with respiratory status. CTA chest showed no PE but significant for bilateral pneumonia. Doppler ultrasound also negative for DVT. COVID-19 test ordered. Due to persistent hypoxia, patient was intubated on 02/26/2020 at 1500. Patient now on mechanical ventilation in the ICU s/p trach placement today. Daily course: 02/26/2020. Blood cultures are negative x48 hours and Covid testing negative as well. Continue antibiotics per ID recommendations for community-acquired bilateral pneumonia. Cardiology consultation for elevated troponin. Check echocardiogram. 02/27/2020. Events of yesterday noted with asystole following V. fib arrest. Patient currently on AC mode rate 20, tidal volume 400, FiO2 50% and a PEEP of 6. Follow-up echocardiogram for elevated troponin. Cardiology suspects NSTEMI Type 2 in the setting of acute resp failure. Chest CTA and BLE Dopplers neg. we will discontinue Decadron given the Covid PCR is negative. 02/28/2020. Spoke with the sister Felisa Eli who is the power of claims attorney regarding advanced directives and she instructed me that she would like to continue with aggressive care at this time. I informed her of the guarded p rognosis and high mortality/morbidity and she voiced understanding. Patient currently with AC mode ventilation rate 18, tidal volume 400, FiO2 40% and a PEEP of 6. Continue antibiotics for pneumonia. ID previously consulted. Also consult neurology with regards to ALS. 02/29/2020; patient is intubated and on CPAP patient is alert and oriented. Patient has ALS. Dr. Álvarez spoke with his sister and she wants aggressive care. Continue antibiotics for pneumonia. Neurology consulted for ALS. Prognosis poor 03/01/2020; patient is intubated and on CPAP, patient is alert and oriented. I spoke with his 2 sisters about the management plan. 03/02/2020; patient is intubated and on CPAP. Patient was alert and oriented. I spoke with Dr. mohr and he thinks patient may need mechanical ventilation, likely his disease progressed. Dr. Flowers did debridement this morning. 03/03/2020; patient is intubated and on CPAP, patient was on trilogy and BiPAP at home. Patient has ALS. on spontaneous breathing trial. Patient is alert and oriented but quadriplegic. Patient has severe bilateral pneumonia and is on cefepime and Vanco, ID is following. Patient has sacral decubitus ulcer and debridement was done by Dr. Flowers and there is no osteomyelitis. 03/05. Patient still on broad-spectrum antibiotics. Status post sacral decubitus ulcer debridements-no osteomyelitis. Patient is on AC 25/400/30% PEEP 5. No blood gas results today. 03/06. Plan for tracheostomy by surgery. Still remains intubated. Labs reviewed-sodium 150. Started on free water 200 every 8hr. trend sodium. 03/07: s/p trach placement today, patient placed back on mechanical ventilation with trach. Plan to resume tube feeding with NG tube. Continue to monitor vitals, monitor BMP. Subjective Date of service: 03/07/20 Principal diagnosis: Ac on Ch Hypercapnic & hypoxemic Resp Failure; Severe Sepsis; Jamar PNA; ALS Interval history: Patient seen and examined S/p trach placement today Discussed with RN at the bedside Vitals reviewed Objective - Exam Narrative Exam: GENERAL: Awake. Intubated with trach tube HEAD: No signs of head trauma. EYES: Pupils are equal. Extraocular motions intact. EARS: Hearing grossly intact. MOUTH: Oropharynx is normal. NECK: No adenopathy, no JVD. CHEST: Coarse breath sounds bilaterally CARDIAC: Regular rate and rhythm. S1 and S2, without murmurs, gallops, or rubs. VASCULAR: No Edema. Peripheral pulses normal and equal in all extremities. ABDOMEN: Soft, non tender and non distended. No rebound or guarding, and no masses palpated. Bowel Sounds normal. NEUROLOGIC EXAM: Awake SKIN: No obvious lesions - Constitutional Vitals: Vital Signs - 12hr 03/07/20 03/07/20 03/07/20 06:00 06:30 07:00 Temperature Pulse Rate 115 H 109 H 105 H Pulse Rate [ From Monitor] Respiratory 17 15 14 Rate Blood Pressure 151/101 150/96 148/98 O2 Sat by Pulse 97 96 96 Oximetry 03/07/20 03/07/20 03/07/20 07:06 08:00 08:40 Temperature Pulse Rate 93 H 82 88 Pulse Rate [ 104 H From Monitor] Respiratory 15 13 Rate Blood Pressure 148/98 117/78 O2 Sat by Pulse 96 97 99 Oximetry 03/07/20 03/07/20 03/07/20 08:46 09:00 09:30 Temperature Pulse Rate 95 H 101 H 86 Pulse Rate [ From Monitor] Respiratory 12 12 Rate Blood Pressure 117/78 114/82 120/80 O2 Sat by Pulse 99 98 97 Oximetry 03/07/20 03/07/20 03/07/20 10:00 10:30 10:49 Temperature Pulse Rate 95 H 92 H 95 H Pulse Rate [ From Monitor] Respiratory 12 12 Rate Blood Pressure 128/88 128/86 128/86 O2 Sat by Pulse 98 97 Oximetry 03/07/20 03/07/20 03/07/20 11:00 11:02 11:30 Temperature Pulse Rate 90 85 92 H Pulse Rate [ From Monitor] Respiratory 12 13 Rate Blood Pressure 136/89 136/89 127/85 O2 Sat by Pulse 97 97 96 Oximetry 03/07/20 03/07/20 03/07/20 12:00 12:30 13:00 Temperature 100.4 F H Pulse Rate 93 H 104 H 97 H Pulse Rate [ 108 H From Monitor] Respiratory 14 15 12 Rate Blood Pressure 134/90 136/90 128/88 O2 Sat by Pulse 96 96 95 Oximetry 03/07/20 03/07/20 03/07/20 13:30 14:00 14:02 Temperature Pulse Rate 98 H 92 H 90 Pulse Rate [ From Monitor] Respiratory 15 16 Rate Blood Pressure 125/89 132/93 132/93 O2 Sat by Pulse 96 96 96 Oximetry 03/07/20 03/07/20 03/07/20 14:30 15:00 15:30 Temperature 101.1 F H Pulse Rate 88 84 94 H Pulse Rate [ From Monitor] Respiratory 13 14 14 Rate Blood Pressure 137/93 142/94 138/95 O2 Sat by Pulse 96 96 96 Oximetry 03/07/20 03/07/20 03/07/20 16:00 16:30 16:53 Temperature Pulse Rate 89 96 H 93 H Pulse Rate [ 105 H From Monitor] Respiratory 12 16 Rate Blood Pressure 143/94 153/95 153/95 O2 Sat by Pulse 96 96 96 Oximetry 03/07/20 03/07/20 17:00 17:30 Temperature Pulse Rate 94 H 92 H Pulse Rate [ From Monitor] Respiratory 19 14 Rate Blood Pressure 146/92 144/94 O2 Sat by Pulse 98 96 Oximetry - Labs CBC & Chem 7: 03/10/20 06:14 03/10/20 06:14 Labs: Abnormal lab results 03/06/20 03/06/20 03/07/20 Range/Units 19:10 23:58 04:25 WBC 22.1 H (4.5-11.0) K/mm3 Hgb 10.9 L (11.8-15.2) gm/dl Hct 32.9 L (35.5-45.6) % RDW 15.5 H (13.2-15.2) % Plt Count 739 H (140-440) K/mm3 Lymph % (Auto) 7.8 L (13.4-35.0) % [place] # (Auto) 1.3 H (0.0-0.8) K/mm3 Seg Neutrophils % 85.5 H (40.0-70.0) % Seg Neutrophils # 18.9 H (1.8-7.7) K/mm3 Sodium (137-145) mmol/L Carbon Dioxide (22-30) mmol/L Creatinine (0.8-1.3) mg/dL Glucose (75-100) mg/dL POC Glucose 152 H 111 H (70-105) mg/dL Albumin (3.9-5) g/dL 03/07/20 03/07/20 03/07/20 Range/Units 04:25 05:20 17:45 WBC (4.5-11.0) K/mm3 Hgb (11.8-15.2) gm/dl Hct (35.5-45.6) % RDW (13.2-15.2) % Plt Count (140-440) K/mm3 Lymph % (Auto) (13.4-35.0) % [place] # (Auto) (0.0-0.8) K/mm3 Seg Neutrophils % (40.0-70.0) % Seg Neutrophils # (1.8-7.7) K/mm3 Sodium 146 H (137-145) mmol/L Carbon Dioxide 37 H (22-30) mmol/L Creatinine < 0.2 L (0.8-1.3) mg/dL Glucose 118 H (75-100) mg/dL POC Glucose 113 H 124 H (70-105) mg/dL Albumin 3.7 L (3.9-5) g/dL HEART Score - HEART Score Troponin: Troponin T 0.034 ng/mL (0.00-0.029) H D 02/24/20 19:35
[2020-03-07] MEDS: MORPHINE 2 MG/1 ML INJ IV PRN ×2 (18:16→22:23)
[2020-03-07] MEDS: ENOXAPARIN 40 MG/0.4 ML INJ SUB-Q SCH (22:23)
[2020-03-08] MEDS: ACETAMINOPHEN 325 MG TAB PO PRN (00:10)
[2020-03-08] MEDS: MORPHINE 2 MG/1 ML INJ IV PRN ×3 (05:31→14:40)
[2020-03-08 08:00] LABS: Hematocrit 30.3 % (35.5-45.6); Hemoglobin 9.7 gm/dl (11.8-15.2); Mean Corpuscular HGB Conc 32 % (32-34); Mean Corpuscular Volume 86 fl (84-94); Platelet Count 578 K/mm3 (140-440); Red Blood Count 3.53 M/mm3 (3.65-5.03); Red Cell Distribution Width 15.6 % (13.2-15.2)
[2020-03-08 08:19] LABS: Alanine Aminotransferase 14 units/L (7-56); Albumin 3.2 g/dL (3.9-5); Blood Urea Nitrogen 34 mg/dL (9-20); Calcium 8.6 mg/dL (8.4-10.2); Hemolysis Index 10
[2020-03-08 08:21] LABS: BUN/Creatinine Ratio 113
--- NOTE | 2020-03-08 08:47 | Progress Note ---
Assessment and Plan Cultures: Blood culture no growth today SARS CoV2 PCR negative Sputum culture 03/03/2020 Stenotrophomonas Blood culture 03/03/2020 no growth today Blood culture 03/07/2020 pending Assessment: 59 years old female with history of ALS with chronic respiratory failure on home trilogy BiPAP, admitted on 02/24/2020 due to worsening shortness of breath for 24 hours: #Severe sepsis: likely due to bilateral pneumonia +/- left gluteal necrotic pressure ulcer. Remains with low-grade fever leukocytosis concern of urinary retention #Severe bilateral pneumonia: Likely community-acquired pneumonia. Procalcitonin elevated-1.13. CTA shows no PE but multifocal pneumonia with predominance left lower lobe. No DVT on US. Elevated D-dimer -1311. SARS-CoV-2 PCR negative. Sputum culture +Stenotrophomonas. CRP 26-->4. Prcal 1.1-->1.6. Repeat CXR near complete atelectasis resolved. Completed cefepime and vancomycin on 03/06/2020 #Left gluteal necrotic pressure ulcer: S/p debridement, not infected per wound care. #Acute on chronic mixed respiratory failure: Intubated, re intubated overnight. #ALS #Rule out urinary retention Recommendations: -Obtain bladder scan rule out urine retention, discussed with nursing staff -Obtain UA UA and urine culture -Continue Levaquin 750 mg IV/PO daily for total 7 days for Stenotrophomonas pneumonia -Monitor fever and leukocytosis -Follow-up repeat blood culture given new fever Will follow Diana Maravilla MD Infectious Diseases [employer] [facility] M [phone] O [phone] Subjective Date of service: 03/08/20 Principal diagnosis: Ac on Ch Hypercapnic & hypoxemic Resp Failure; Severe Sepsis; Jamar PNA; ALS Interval history: Remains with low-grade fever 100.7, tachycardic on monitor, somnolent Objective - Exam Narrative Exam: General appearance: Intubated, somnolent and Eyes: anicteric sclerae, moist conjunctivae; no lid-lag; PERRLA HENT: Normocephalic, Atraumatic; normal external ears, nares open, oropharynx limited Neck: Trach in place Lungs: Bilateral rhonchi CV: Tachycardic Abdomen: Soft, bladder distended and tender Extremities: no edema, no cyanosis Skin: No rash. per wound care Left buttock unstageable pressure ulcer measuring 4.5x7x0.9cm. Wound bed is 7o% necrotic. Small amounts of yellow drainage with a mild odor noted. Psych: no agitated Neuro: Alert on the ventilator - Constitutional Vitals: Vital Signs Temp Pulse Resp BP Pulse Ox 99.7 F H 108 H 24 117/77 97 03/08/20 04:00 03/08/20 08:30 03/08/20 08:30 03/08/20 08:30 03/08/20 08:30 Temperature -Last 24 Hours Temperature 99.7 F Temperature 100.7 F Temperature 100.8 F Temperature 101.1 F Temperature 101.1 F Temperature 100.4 F - Labs CBC & Chem 7: 03/08/20 06:43 03/08/20 06:43 Labs: Abnormal lab results 03/07/20 03/07/20 03/08/20 Range/Units 17:45 23:32 05:35 WBC (4.5-11.0) K/mm3 RBC (3.65-5.03) M/mm3 Hgb (11.8-15.2) gm/dl Hct (35.5-45.6) % RDW (13.2-15.2) % Plt Count (140-440) K/mm3 Sodium (137-145) mmol/L Carbon Dioxide (22-30) mmol/L BUN (9-20) mg/dL Creatinine (0.8-1.3) mg/dL Glucose (75-100) mg/dL POC Glucose 124 H 210 H 147 H (70-105) mg/dL Total Protein (6.3-8.2) g/dL Albumin (3.9-5) g/dL 03/08/20 03/08/20 Range/Units 06:43 06:43 WBC 28.9 H (4.5-11.0) K/mm3 RBC 3.53 L (3.65-5.03) M/mm3 Hgb 9.7 L (11.8-15.2) gm/dl Hct 30.3 L (35.5-45.6) % RDW 15.6 H (13.2-15.2) % Plt Count 578 H (140-440) K/mm3 Sodium 146 H (137-145) mmol/L Carbon Dioxide 35 H (22-30) mmol/L BUN 34 H (9-20) mg/dL Creatinine 0.3 L D (0.8-1.3) mg/dL Glucose 125 H (75-100) mg/dL POC Glucose (70-105) mg/dL Total Protein 5.9 L (6.3-8.2) g/dL Albumin 3.2 L (3.9-5) g/dL
[2020-03-08] MEDS: LANSOPRAZOLE 30 MG SOLUTAB FEEDTUBE SCH (09:39)
[2020-03-08] MEDS: METOPROLOL TARTRATE 25 MG TAB PO SCH ×2 (09:39→21:50)
[2020-03-08 10:06] LABS: Band Neutrophils # (Manual) 0.3 K/mm3; Basophils % (Manual) 0 % (0.0-1.8); Eosinophils % (Manual) 0 % (0.0-4.3); Platelet Estimate Consistent w Auto; RBC Morphology Normal; Total Cells Counted 100
--- NOTE | 2020-03-08 11:29 | Progress Note ---
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 Respiratory Failure Severe Sepsis with Shock Bilateral Pneumonia (Possible aspiration) History of ALS on Trilogy Oropharyngeal Dysphagia PUI-COVID Acute toxic metabolic encephalopathy Elevated D-dimer Elevated troponin possibly type 2 ischemia - continue 25 mics/hr fentanyl patch X 1 dose - begin T-[piece trials in am as tolerated - add Robinul for secretion control - continue daily SAT and SBT assessment as tolerated in am - wound care per RN/WCN - continue care as below otherwise; - continue Scopolamine patch for secretion control - wean supplemental oxygen for target O2 sat's > 92% acutely - bronchodilators with pulmonary hygiene per RT - VAP bundle addressed - continue lung protective strategies - continue bronchodilators with pulmonary hygiene per RT - wean per pulmonary driven protocols otherwise - sedation prn for target RASS 0 to -1 - empiric antiinfectives per ID rec's (Rocephin and Zithromax) - COVID-19 isolation (Airborne & Contact) - empiric Dexamethasone - follow COVID-19 test results - trend inflammatory markers to aid clinical decision making - enteral nutrition at goal rate as tolerated - Aspiration precautions - accuchecks with glycemic control per SSI (While critically ill target blood glucose of 140-180 mg/dL; avoid hypoglycemia) - avoid nephrotoxins, renally dose all medications - avoid benzodiazepine's, reduce the possibility of delirium - prn analgesia per CPOT score - Maintenance of sleep-wake cycle, avoid delirium - aspiration precautions - G.I. & VTE prophylaxis - PT/OT/ROM exercises - mobility protocols for pressure ulcer prophylaxis - Monitor hemodynamics closely - continue other care per attending / other consultants - discharge planning ongoing concurrently .... Re-evaluate in am & prn CONDITION: CRITICAL PROGNOSIS: GUARDED CODE STATUS: FULL CODE The high probability of a clinically significant, sudden or life-threatening deterioration of the [respiratory, cardiovascular & neurologic] system(s) required my full and direct attention, intervention and personal management. The aggregate critical care time was [32] minutes without overlap. Time includes spent on; [x] Data Review and interpretation [x] Patient assessment and monitoring of vital signs [x] Documentation [x] Medication orders and management Subjective Date of service: 03/08/20 Principal diagnosis: Ac on Ch Hypercapnic & hypoxemic Resp Failure; Severe Sepsis; Jamar PNA; ALS Interval history: Patient is seen today for: Acute on Chronic Hypercapnic & hypoxemic Respiratory Failure; Severe Sepsis with Shock; Bilateral Pneumonia (Possible aspiration); History of ALS on Trilogy; PUI-COVID; Acute toxic metabolic encephalopathy Seen and examined at bedside; 24hour events reviewed; nursing and respiratory care staff consulted; no adverse overnight events reported to me; resting in bed; remains on MVS; secretions increased; slow but steady SBT toleration today and now on PSV 10/6 and tolerating well; No N/V/F/C Objective Vital Signs - 12hr 03/07/20 03/07/20 03/08/20 23:30 23:53 00:00 Temperature 100.7 F H Pulse Rate 100 H 98 H Pulse Rate [ 97 H From Monitor] Respiratory 12 12 Rate Blood Pressure 138/89 131/87 O2 Sat by Pulse 96 95 Oximetry 03/08/20 03/08/20 03/08/20 00:20 00:30 01:00 Temperature Pulse Rate 99 H 108 H 95 H Pulse Rate [ From Monitor] Respiratory 14 12 Rate Blood Pressure 131/87 140/90 129/83 O2 Sat by Pulse 95 95 96 Oximetry 03/08/20 03/08/20 03/08/20 01:30 02:00 02:30 Temperature Pulse Rate 94 H 101 H 95 H Pulse Rate [ From Monitor] Respiratory 12 13 12 Rate Blood Pressure 120/79 121/82 123/83 O2 Sat by Pulse 96 96 96 Oximetry 03/08/20 03/08/20 03/08/20 03:00 03:30 04:00 Temperature 99.7 F H Pulse Rate 100 H 100 H 106 H Pulse Rate [ 104 H From Monitor] Respiratory 13 13 18 Rate Blood Pressure 136/87 127/85 133/86 O2 Sat by Pulse 95 96 95 Oximetry 03/08/20 03/08/20 03/08/20 04:05 04:30 05:01 Temperature Pulse Rate 101 H 105 H Pulse Rate [ From Monitor] Respiratory 12 Rate Blood Pressure 133/86 135/87 135/87 O2 Sat by Pulse 96 95 Oximetry 03/08/20 03/08/20 03/08/20 05:31 06:00 06:30 Temperature Pulse Rate 106 H 105 H 105 H Pulse Rate [ From Monitor] Respiratory 24 30 H 18 Rate Blood Pressure 135/87 106/74 112/77 O2 Sat by Pulse 96 97 97 Oximetry 1103/08/20 03/08/20 07:00 07:30 07:43 Temperature Pulse Rate 106 H 103 H 101 H Pulse Rate [ From Monitor] Respiratory 21 25 H Rate Blood Pressure 115/79 117/80 117/80 O2 Sat by Pulse 98 98 98 Oximetry 03/08/20 03/08/20 03/08/20 07:46 08:00 08:30 Temperature 99.5 F Pulse Rate 108 H 104 H 108 H Pulse Rate [ 102 H From Monitor] Respiratory 15 18 24 Rate Blood Pressure 117/80 123/79 117/77 O2 Sat by Pulse 98 97 97 Oximetry 03/08/20 03/08/20 03/08/20 09:00 09:30 09:39 Temperature Pulse Rate 118 H 121 H 116 H Pulse Rate [ From Monitor] Respiratory 28 H 16 Rate Blood Pressure 120/80 110/77 110/77 O2 Sat by Pulse 97 97 Oximetry 03/08/20 03/08/20 03/08/20 10:00 10:30 10:37 Temperature Pulse Rate 107 H 101 H 104 H Pulse Rate [ From Monitor] Respiratory 26 H 15 20 Rate Blood Pressure 116/76 111/74 111/74 O2 Sat by Pulse 97 98 98 Oximetry Constitutional: no acute distress, other (thin middle aged male with mildly increased respiratory effort at rest on MVS) Eyes: non-icteric ENT: oropharynx moist, other (S/P Tracheostomy) Neck: supple, no lymphadenopathy, no JVD Effort: mildly labored Ascultation: Bilateral: diminished breath sounds, rhonchi (and referred upper airway sounds) Percussion: Bilateral: not dull Cardiovascular: regular rate and rhythm, other (S1,S2, no murmurs) Gastrointestinal: normoactive bowel sounds, soft, non-tender, non-distended Integumentary: normal, decubitus ulcer (sacral / gluteal) Extremities: no cyanosis, no edema, pulses normal, other (atrophic looking limbs) Neurologic: pupils equal and round, other (motor strength in extremities 1-2/5) Psychiatric: mood appropriate, affect normal CBC and BMP: 03/08/20 06:43 03/08/20 06:43 ABG, PT/INR, D-dimer: ABG ABG pH 7.417 pH Units (7.350-7.450) 03/06/20 04:34 POC ABG pCO2 46.9 mmHg (32.0-48.0) 03/03/20 10:21 ABG pCO2 60.1 mm Hg 03/06/20 04:34 POC ABG pO2 83.0 mmHg (83-108) 03/03/20 10:21 ABG pO2 88.6 mm Hg (80.0-90.0) 03/06/20 04:34 POC ABG HCO3 30.7 03/03/20 10:21 ABG O2 Saturation 97.0 % (95.0-99.0) 03/06/20 04:34 PT/INR, D-dimer PT 15.6 Sec. (12.2-14.9) H 02/24/20 09:19 INR 1.21 (0.87-1.13) H 02/24/20 09:19 D-Dimer 1311.96 ng/mlDDU (0-234) H 02/24/20 09:19 Abnormal lab findings: Abnormal Labs 02/24/20 02/24/20 02/24/20 09:19 09:19 09:19 WBC 20.2 H RBC 5.05 H Hgb Hct MCV MCH RDW 15.3 H Plt Count Lymph % (Auto) [place] # (Auto) Seg Neutrophils % Seg Neuts % (Manual) 86.0 H Lymphocytes % (Manual) 1.0 L Monocytes % (Manual) Seg Neutrophils # Seg Neutrophils # Man 17.4 H Lymphocytes # (Manual) 0.2 L Monocytes # (Manual) Eosinophils # (Manual) PT 15.6 H INR 1.21 H D-Dimer 1311.96 H ABG pH POC ABG pCO2 POC ABG pO2 ABG pO2 ABG HCO3 ABG O2 Saturation ABG Base Excess ABG Hemoglobin ABG Oxyhemoglobin ABG Potassium ABG Glucose Oxyhemoglobin Carboxyhemoglobin Sodium 135 L Potassium 3.2 L Chloride 92.2 L Carbon Dioxide BUN 6 L Creatinine < 0.2 L Glucose 124 H POC Glucose Ferritin Total Bilirubin 2.30 H Alkaline Phosphatase 132 H Lactate Dehydrogenase Troponin T 0.080 H C-Reactive Protein Total Protein Albumin 3.6 L Prealbumin LDL Cholesterol Direct 41 L Arterial Blood Glucose Arterial Blood Ionized Calcium 02/24/20 02/24/20 02/24/20 09:19 09:58 10:01 WBC RBC Hgb Hct MCV MCH RDW Plt Count Lymph % (Auto) [place] # (Auto) Seg Neutrophils % Seg Neuts % (Manual) Lymphocytes % (Manual) Monocytes % (Manual) Seg Neutrophils # Seg Neutrophils # Man Lymphocytes # (Manual) Monocytes # (Manual) Eosinophils # (Manual) PT INR D-Dimer ABG pH 7.176 L* POC ABG pCO2 POC ABG pO2 ABG pO2 91.2 H ABG HCO3 ABG O2 Saturation ABG Base Excess -4.6 L ABG Hemoglobin ABG Oxyhemoglobin ABG Potassium ABG Glucose Oxyhemoglobin 92.6 L Carboxyhemoglobin Sodium Potassium Chloride Carbon Dioxide BUN Creatinine Glucose POC Glucose Ferritin 1715.0 H Total Bilirubin Alkaline Phosphatase Lactate Dehydrogenase 303 H Troponin T C-Reactive Protein 26.10 H Total Protein Albumin Prealbumin LDL Cholesterol Direct Arterial Blood Glucose Arterial Blood Ionized Calcium 02/24/20 02/24/20 02/24/20 11:52 13:45 19:35 WBC RBC Hgb Hct MCV MCH RDW Plt Count Lymph % (Auto) [place] # (Auto) Seg Neutrophils % Seg Neuts % (Manual) Lymphocytes % (Manual) Monocytes % (Manual) Seg Neutrophils # Seg Neutrophils # Man Lymphocytes # (Manual) Monocytes # (Manual) Eosinophils # (Manual) PT INR D-Dimer ABG pH 7.051 L* 7.300 L POC ABG pCO2 POC ABG pO2 ABG pO2 94.7 H 75.1 L ABG HCO3 18.0 L ABG O2 Saturation 93.5 L ABG Base Excess -6.8 L -7.8 L ABG Hemoglobin 13.2 L 11.9 L ABG Oxyhemoglobin ABG Potassium ABG Glucose Oxyhemoglobin 91.0 L 92.7 L Carboxyhemoglobin Sodium Potassium Chloride Carbon Dioxide BUN Creatinine Glucose POC Glucose Ferritin Total Bilirubin Alkaline Phosphatase Lactate Dehydrogenase Troponin T 0.034 H D C-Reactive Protein Total Protein Albumin Prealbumin LDL Cholesterol Direct Arterial Blood Glucose Arterial Blood Ionized Calcium 02/25/20 02/25/20 02/25/20 04:00 04:00 12:26 WBC 22.9 H RBC Hgb Hct MCV 83 L MCH 27 L RDW Plt Count 468 H Lymph % (Auto) [place] # (Auto) Seg Neutrophils % Seg Neuts % (Manual) 89.0 H Lymphocytes % (Manual) 7.0 L Monocytes % (Manual) Seg Neutrophils # Seg Neutrophils # Man 20.4 H Lymphocytes # (Manual) Monocytes # (Manual) Eosinophils # (Manual) PT INR D-Dimer ABG pH POC ABG pCO2 POC ABG pO2 ABG pO2 ABG HCO3 ABG O2 Saturation ABG Base Excess ABG Hemoglobin ABG Oxyhemoglobin ABG Potassium 2.6 L ABG Glucose 142 H Oxyhemoglobin Carboxyhemoglobin Sodium Potassium 3.2 L Chloride Carbon Dioxide 18 L BUN Creatinine 0.2 L Glucose 114 H POC Glucose Ferritin Total Bilirubin Alkaline Phosphatase Lactate Dehydrogenase Troponin T C-Reactive Protein Total Protein Albumin 3.5 L Prealbumin LDL Cholesterol Direct Arterial Blood Glucose 142 H Arterial Blood Ionized Calcium 02/26/20 02/26/20 02/26/20 15:58 17:00 23:43 WBC RBC Hgb Hct MCV MCH RDW Plt Count Lymph % (Auto) [place] # (Auto) Seg Neutrophils % Seg Neuts % (Manual) Lymphocytes % (Manual) Monocytes % (Manual) Seg Neutrophils # Seg Neutrophils # Man Lymphocytes # (Manual) Monocytes # (Manual) Eosinophils # (Manual) PT INR D-Dimer ABG pH 7.502 H POC ABG pCO2 POC ABG pO2 213.6 H ABG pO2 ABG HCO3 ABG O2 Saturation ABG Base Excess ABG Hemoglobin ABG Oxyhemoglobin 99.2 H ABG Potassium 2.9 L ABG Glucose 160 H Oxyhemoglobin Carboxyhemoglobin 0.4 L Sodium Potassium Chloride Carbon Dioxide BUN Creatinine Glucose POC Glucose 189 H 120 H Ferritin Total Bilirubin Alkaline Phosphatase Lactate Dehydrogenase Troponin T C-Reactive Protein Total Protein Albumin Prealbumin LDL Cholesterol Direct Arterial Blood Glucose 160 H Arterial Blood Ionized Calcium 4.5 L 02/27/20 02/27/20 02/27/20 05:00 07:04 17:45 WBC RBC Hgb Hct MCV MCH RDW Plt Count Lymph % (Auto) [place] # (Auto) Seg Neutrophils % Seg Neuts % (Manual) Lymphocytes % (Manual) Monocytes % (Manual) Seg Neutrophils # Seg Neutrophils # Man Lymphocytes # (Manual) Monocytes # (Manual) Eosinophils # (Manual) PT INR D-Dimer ABG pH 7.524 H POC ABG pCO2 POC ABG pO2 ABG pO2 ABG HCO3 ABG O2 Saturation ABG Base Excess ABG Hemoglobin ABG Oxyhemoglobin ABG Potassium 3.0 L ABG Glucose 143 H Oxyhemoglobin Carboxyhemoglobin Sodium Potassium Chloride Carbon Dioxide BUN Creatinine Glucose POC Glucose 154 H 175 H Ferritin Total Bilirubin Alkaline Phosphatase Lactate Dehydrogenase Troponin T C-Reactive Protein Total Protein Albumin Prealbumin LDL Cholesterol Direct Arterial Blood Glucose 143 H Arterial Blood Ionized Calcium 02/27/20 02/28/20 02/28/20 Unknown 00:21 04:15 WBC 18.7 H RBC Hgb Hct MCV MCH RDW Plt Count Lymph % (Auto) 8.7 L [place] # (Auto) 1.2 H Seg Neutrophils % 84.6 H Seg Neuts % (Manual) Lymphocytes % (Manual) Monocytes % (Manual) Seg Neutrophils # 15.9 H Seg Neutrophils # Man Lymphocytes # (Manual) Monocytes # (Manual) Eosinophils # (Manual) PT INR D-Dimer ABG pH POC ABG pCO2 POC ABG pO2 ABG pO2 ABG HCO3 ABG O2 Saturation ABG Base Excess ABG Hemoglobin ABG Oxyhemoglobin ABG Potassium ABG Glucose Oxyhemoglobin Carboxyhemoglobin Sodium Potassium 2.9 L* Chloride Carbon Dioxide 33 H D BUN Creatinine < 0.2 L Glucose 157 H POC Glucose 134 H Ferritin Total Bilirubin Alkaline Phosphatase Lactate Dehydrogenase Troponin T C-Reactive Protein Total Protein Albumin Prealbumin LDL Cholesterol Direct Arterial Blood Glucose Arterial Blood Ionized Calcium 02/28/20 02/28/20 02/28/20 04:15 05:16 05:39 WBC RBC Hgb Hct MCV MCH RDW Plt Count Lymph % (Auto) [place] # (Auto) Seg Neutrophils % Seg Neuts % (Manual) Lymphocytes % (Manual) Monocytes % (Manual) Seg Neutrophils # Seg Neutrophils # Man Lymphocytes # (Manual) Monocytes # (Manual) Eosinophils # (Manual) PT INR D-Dimer ABG pH POC ABG pCO2 POC ABG pO2 ABG pO2 142.9 H ABG HCO3 34.1 H ABG O2 Saturation ABG Base Excess 8.3 H ABG Hemoglobin ABG Oxyhemoglobin ABG Potassium ABG Glucose Oxyhemoglobin Carboxyhemoglobin Sodium 151 H Potassium Chloride Carbon Dioxide 32 H BUN Creatinine 0.2 L Glucose 167 H POC Glucose 138 H Ferritin Total Bilirubin Alkaline Phosphatase Lactate Dehydrogenase Troponin T C-Reactive Protein Total Protein Albumin Prealbumin LDL Cholesterol Direct Arterial Blood Glucose Arterial Blood Ionized Calcium 02/28/20 02/28/20 02/28/20 11:05 11:33 12:54 WBC RBC Hgb Hct MCV MCH RDW Plt Count Lymph % (Auto) [place] # (Auto) Seg Neutrophils % Seg Neuts % (Manual) Lymphocytes % (Manual) Monocytes % (Manual) Seg Neutrophils # Seg Neutrophils # Man Lymphocytes # (Manual) Monocytes # (Manual) Eosinophils # (Manual) PT INR D-Dimer ABG pH POC ABG pCO2 POC ABG pO2 ABG pO2 ABG HCO3 ABG O2 Saturation ABG Base Excess ABG Hemoglobin ABG Oxyhemoglobin ABG Potassium ABG Glucose Oxyhemoglobin Carboxyhemoglobin Sodium Potassium Chloride Carbon Dioxide BUN Creatinine Glucose POC Glucose 160 H Ferritin Total Bilirubin Alkaline Phosphatase Lactate Dehydrogenase Troponin T C-Reactive Protein 4.70 H Total Protein Albumin Prealbumin 0.090 L LDL Cholesterol Direct Arterial Blood Glucose Arterial Blood Ionized Calcium 02/28/20 02/29/20 02/29/20 17:34 00:44 04:05 WBC 19.6 H RBC Hgb Hct MCV MCH 27 L RDW 15.4 H Plt Count Lymph % (Auto) [place] # (Auto) Seg Neutrophils % Seg Neuts % (Manual) 86.0 H Lymphocytes % (Manual) 7.0 L Monocytes % (Manual) Seg Neutrophils # Seg Neutrophils # Man 16.9 H Lymphocytes # (Manual) Monocytes # (Manual) 1.2 H Eosinophils # (Manual) PT INR D-Dimer ABG pH POC ABG pCO2 POC ABG pO2 ABG pO2 ABG HCO3 ABG O2 Saturation ABG Base Excess ABG Hemoglobin ABG Oxyhemoglobin ABG Potassium ABG Glucose Oxyhemoglobin Carboxyhemoglobin Sodium Potassium Chloride Carbon Dioxide BUN Creatinine Glucose POC Glucose 136 H 156 H Ferritin Total Bilirubin Alkaline Phosphatase Lactate Dehydrogenase Troponin T C-Reactive Protein Total Protein Albumin Prealbumin LDL Cholesterol Direct Arterial Blood Glucose Arterial Blood Ionized Calcium 02/29/20 02/29/20 02/29/20 04:05 05:14 05:33 WBC RBC Hgb Hct MCV MCH RDW Plt Count Lymph % (Auto) [place] # (Auto) Seg Neutrophils % Seg Neuts % (Manual) Lymphocytes % (Manual) Monocytes % (Manual) Seg Neutrophils # Seg Neutrophils # Man Lymphocytes # (Manual) Monocytes # (Manual) Eosinophils # (Manual) PT INR D-Dimer ABG pH POC ABG pCO2 54.3 H POC ABG pO2 124.8 H ABG pO2 ABG HCO3 ABG O2 Saturation ABG Base Excess ABG Hemoglobin ABG Oxyhemoglobin ABG Potassium ABG Glucose 185 H Oxyhemoglobin Carboxyhemoglobin Sodium 148 H Potassium Chloride Carbon Dioxide 33 H BUN Creatinine < 0.2 L Glucose 173 H POC Glucose 152 H Ferritin Total Bilirubin Alkaline Phosphatase Lactate Dehydrogenase Troponin T C-Reactive Protein Total Protein Albumin Prealbumin LDL Cholesterol Direct Arterial Blood Glucose 185 H Arterial Blood Ionized Calcium 03/01/20 03/01/20 03/01/20 00:00 03:45 04:33 WBC 23.1 H RBC Hgb Hct MCV MCH 27 L RDW 15.3 H Plt Count Lymph % (Auto) [place] # (Auto) Seg Neutrophils % Seg Neuts % (Manual) 92.0 H Lymphocytes % (Manual) 6.0 L Monocytes % (Manual) Seg Neutrophils # Seg Neutrophils # Man 21.3 H Lymphocytes # (Manual) Monocytes # (Manual) Eosinophils # (Manual) 0.5 H PT INR D-Dimer ABG pH 7.492 H POC ABG pCO2 POC ABG pO2 ABG pO2 157.1 H ABG HCO3 32.3 H ABG O2 Saturation ABG Base Excess 8.1 H ABG Hemoglobin 13.2 L ABG Oxyhemoglobin ABG Potassium ABG Glucose Oxyhemoglobin Carboxyhemoglobin Sodium Potassium Chloride Carbon Dioxide BUN Creatinine Glucose POC Glucose 109 H Ferritin Total Bilirubin Alkaline Phosphatase Lactate Dehydrogenase Troponin T C-Reactive Protein Total Protein Albumin Prealbumin LDL Cholesterol Direct Arterial Blood Glucose Arterial Blood Ionized Calcium 03/01/20 03/01/20 03/01/20 04:33 05:29 12:32 WBC RBC Hgb Hct MCV MCH RDW Plt Count Lymph % (Auto) [place] # (Auto) Seg Neutrophils % Seg Neuts % (Manual) Lymphocytes % (Manual) Monocytes % (Manual) Seg Neutrophils # Seg Neutrophils # Man Lymphocytes # (Manual) Monocytes # (Manual) Eosinophils # (Manual) PT INR D-Dimer ABG pH POC ABG pCO2 POC ABG pO2 ABG pO2 ABG HCO3 ABG O2 Saturation ABG Base Excess ABG Hemoglobin ABG Oxyhemoglobin ABG Potassium ABG Glucose Oxyhemoglobin Carboxyhemoglobin Sodium 146 H Potassium Chloride Carbon Dioxide 32 H BUN Creatinine < 0.2 L Glucose 120 H POC Glucose 120 H 128 H Ferritin Total Bilirubin Alkaline Phosphatase Lactate Dehydrogenase Troponin T C-Reactive Protein Total Protein Albumin Prealbumin LDL Cholesterol Direct Arterial Blood Glucose Arterial Blood Ionized Calcium 03/01/20 03/01/20 03/02/20 17:38 23:46 06:13 WBC RBC Hgb Hct MCV MCH RDW Plt Count Lymph % (Auto) [place] # (Auto) Seg Neutrophils % Seg Neuts % (Manual) Lymphocytes % (Manual) Monocytes % (Manual) Seg Neutrophils # Seg Neutrophils # Man Lymphocytes # (Manual) Monocytes # (Manual) Eosinophils # (Manual) PT INR D-Dimer ABG pH POC ABG pCO2 POC ABG pO2 ABG pO2 ABG HCO3 ABG O2 Saturation ABG Base Excess ABG Hemoglobin ABG Oxyhemoglobin ABG Potassium ABG Glucose Oxyhemoglobin Carboxyhemoglobin Sodium Potassium Chloride Carbon Dioxide BUN Creatinine Glucose POC Glucose 114 H 121 H 120 H Ferritin Total Bilirubin Alkaline Phosphatase Lactate Dehydrogenase Troponin T C-Reactive Protein Total Protein Albumin Prealbumin LDL Cholesterol Direct Arterial Blood Glucose Arterial Blood Ionized Calcium 03/02/20 03/02/20 03/03/20 09:47 09:47 10:21 WBC 23.6 H RBC Hgb Hct MCV MCH RDW 15.3 H Plt Count 494 H Lymph % (Auto) [place] # (Auto) Seg Neutrophils % Seg Neuts % (Manual) 85.0 H Lymphocytes % (Manual) 6.0 L Monocytes % (Manual) Seg Neutrophils # Seg Neutrophils # Man 20.1 H Lymphocytes # (Manual) Monocytes # (Manual) 1.7 H Eosinophils # (Manual) PT INR D-Dimer ABG pH POC ABG pCO2 POC ABG pO2 ABG pO2 ABG HCO3 ABG O2 Saturation ABG Base Excess ABG Hemoglobin ABG Oxyhemoglobin ABG Potassium 3.3 L ABG Glucose 158 H Oxyhemoglobin Carboxyhemoglobin Sodium Potassium Chloride Carbon Dioxide BUN Creatinine < 0.2 L Glucose 177 H POC Glucose Ferritin Total Bilirubin Alkaline Phosphatase Lactate Dehydrogenase Troponin T C-Reactive Protein Total Protein Albumin Prealbumin LDL Cholesterol Direct Arterial Blood Glucose 158 H Arterial Blood Ionized Calcium 03/03/20 03/04/20 03/04/20 21:30 00:00 12:23 WBC RBC Hgb Hct MCV MCH RDW Plt Count Lymph % (Auto) [place] # (Auto) Seg Neutrophils % Seg Neuts % (Manual) Lymphocytes % (Manual) Monocytes % (Manual) Seg Neutrophils # Seg Neutrophils # Man Lymphocytes # (Manual) Monocytes # (Manual) Eosinophils # (Manual) PT INR D-Dimer ABG pH 7.328 L POC ABG pCO2 POC ABG pO2 ABG pO2 68.4 L ABG HCO3 35.0 H ABG O2 Saturation 93.9 L ABG Base Excess 6.8 H ABG Hemoglobin 12.7 L ABG Oxyhemoglobin ABG Potassium ABG Glucose Oxyhemoglobin 91.9 L Carboxyhemoglobin Sodium Potassium Chloride Carbon Dioxide BUN Creatinine Glucose POC Glucose 187 H 163 H Ferritin Total Bilirubin Alkaline Phosphatase Lactate Dehydrogenase Troponin T C-Reactive Protein Total Protein Albumin Prealbumin LDL Cholesterol Direct Arterial Blood Glucose Arterial Blood Ionized Calcium 03/04/20 03/04/20 03/05/20 18:15 21:30 06:02 WBC RBC Hgb Hct MCV MCH RDW Plt Count Lymph % (Auto) [place] # (Auto) Seg Neutrophils % Seg Neuts % (Manual) Lymphocytes % (Manual) Monocytes % (Manual) Seg Neutrophils # Seg Neutrophils # Man Lymphocytes # (Manual) Monocytes # (Manual) Eosinophils # (Manual) PT INR D-Dimer ABG pH 7.297 L POC ABG pCO2 POC ABG pO2 ABG pO2 ABG HCO3 41.0 H ABG O2 Saturation ABG Base Excess 11.0 H ABG Hemoglobin 13.1 L ABG Oxyhemoglobin ABG Potassium ABG Glucose Oxyhemoglobin 94.5 L Carboxyhemoglobin Sodium Potassium Chloride Carbon Dioxide BUN Creatinine Glucose POC Glucose 192 H 127 H Ferritin Total Bilirubin Alkaline Phosphatase Lactate Dehydrogenase Troponin T C-Reactive Protein Total Protein Albumin Prealbumin LDL Cholesterol Direct Arterial Blood Glucose Arterial Blood Ionized Calcium 03/05/20 03/05/20 03/06/20 12:09 16:42 00:24 WBC RBC Hgb Hct MCV MCH RDW Plt Count Lymph % (Auto) [place] # (Auto) Seg Neutrophils % Seg Neuts % (Manual) Lymphocytes % (Manual) Monocytes % (Manual) Seg Neutrophils # Seg Neutrophils # Man Lymphocytes # (Manual) Monocytes # (Manual) Eosinophils # (Manual) PT INR D-Dimer ABG pH POC ABG pCO2 POC ABG pO2 ABG pO2 ABG HCO3 ABG O2 Saturation ABG Base Excess ABG Hemoglobin ABG Oxyhemoglobin ABG Potassium ABG Glucose Oxyhemoglobin Carboxyhemoglobin Sodium Potassium Chloride Carbon Dioxide BUN Creatinine Glucose POC Glucose 147 H 114 H 134 H Ferritin Total Bilirubin Alkaline Phosphatase Lactate Dehydrogenase Troponin T C-Reactive Protein Total Protein Albumin Prealbumin LDL Cholesterol Direct Arterial Blood Glucose Arterial Blood Ionized Calcium 03/06/20 03/06/20 03/06/20 04:34 05:53 06:08 WBC 25.4 H RBC Hgb 10.5 L Hct 32.7 L MCV MCH 27 L RDW 15.3 H Plt Count 634 H Lymph % (Auto) [place] # (Auto) Seg Neutrophils % Seg Neuts % (Manual) 88.0 H Lymphocytes % (Manual) 2.0 L Monocytes % (Manual) 8.0 H Seg Neutrophils # Seg Neutrophils # Man 22.4 H Lymphocytes # (Manual) 0.5 L Monocytes # (Manual) 2.0 H Eosinophils # (Manual) PT INR D-Dimer ABG pH POC ABG pCO2 POC ABG pO2 ABG pO2 ABG HCO3 37.9 H ABG O2 Saturation ABG Base Excess 11.4 H ABG Hemoglobin 10.6 L ABG Oxyhemoglobin ABG Potassium ABG Glucose Oxyhemoglobin 94.7 L Carboxyhemoglobin Sodium Potassium Chloride Carbon Dioxide BUN Creatinine Glucose POC Glucose 135 H Ferritin Total Bilirubin Alkaline Phosphatase Lactate Dehydrogenase Troponin T C-Reactive Protein Total Protein Albumin Prealbumin LDL Cholesterol Direct Arterial Blood Glucose Arterial Blood Ionized Calcium 03/06/20 03/06/20 03/06/20 06:08 12:19 19:10 WBC RBC Hgb Hct MCV MCH RDW Plt Count Lymph % (Auto) [place] # (Auto) Seg Neutrophils % Seg Neuts % (Manual) Lymphocytes % (Manual) Monocytes % (Manual) Seg Neutrophils # Seg Neutrophils # Man Lymphocytes # (Manual) Monocytes # (Manual) Eosinophils # (Manual) PT INR D-Dimer ABG pH POC ABG pCO2 POC ABG pO2 ABG pO2 ABG HCO3 ABG O2 Saturation ABG Base Excess ABG Hemoglobin ABG Oxyhemoglobin ABG Potassium ABG Glucose Oxyhemoglobin Carboxyhemoglobin Sodium 150 H D Potassium Chloride Carbon Dioxide 39 H D BUN 23 H Creatinine < 0.2 L Glucose 144 H POC Glucose 169 H 152 H Ferritin Total Bilirubin Alkaline Phosphatase Lactate Dehydrogenase Troponin T C-Reactive Protein Total Protein Albumin 3.3 L Prealbumin LDL Cholesterol Direct Arterial Blood Glucose Arterial Blood Ionized Calcium 03/06/20 03/07/20 03/07/20 23:58 04:25 04:25 WBC 22.1 H RBC Hgb 10.9 L Hct 32.9 L MCV MCH RDW 15.5 H Plt Count 739 H Lymph % (Auto) 7.8 L [place] # (Auto) 1.3 H Seg Neutrophils % 85.5 H Seg Neuts % (Manual) Lymphocytes % (Manual) Monocytes % (Manual) Seg Neutrophils # 18.9 H Seg Neutrophils # Man Lymphocytes # (Manual) Monocytes # (Manual) Eosinophils # (Manual) PT INR D-Dimer ABG pH POC ABG pCO2 POC ABG pO2 ABG pO2 ABG HCO3 ABG O2 Saturation ABG Base Excess ABG Hemoglobin ABG Oxyhemoglobin ABG Potassium ABG Glucose Oxyhemoglobin Carboxyhemoglobin Sodium 146 H Potassium Chloride Carbon Dioxide 37 H BUN Creatinine < 0.2 L Glucose 118 H POC Glucose 111 H Ferritin Total Bilirubin Alkaline Phosphatase Lactate Dehydrogenase Troponin T C-Reactive Protein Total Protein Albumin 3.7 L Prealbumin LDL Cholesterol Direct Arterial Blood Glucose Arterial Blood Ionized Calcium 03/07/20 03/07/20 03/07/20 05:20 17:45 23:32 WBC RBC Hgb Hct MCV MCH RDW Plt Count Lymph % (Auto) [place] # (Auto) Seg Neutrophils % Seg Neuts % (Manual) Lymphocytes % (Manual) Monocytes % (Manual) Seg Neutrophils # Seg Neutrophils # Man Lymphocytes # (Manual) Monocytes # (Manual) Eosinophils # (Manual) PT INR D-Dimer ABG pH POC ABG pCO2 POC ABG pO2 ABG pO2 ABG HCO3 ABG O2 Saturation ABG Base Excess ABG Hemoglobin ABG Oxyhemoglobin ABG Potassium ABG Glucose Oxyhemoglobin Carboxyhemoglobin Sodium Potassium Chloride Carbon Dioxide BUN Creatinine Glucose POC Glucose 113 H 124 H 210 H Ferritin Total Bilirubin Alkaline Phosphatase Lactate Dehydrogenase Troponin T C-Reactive Protein Total Protein Albumin Prealbumin LDL Cholesterol Direct Arterial Blood Glucose Arterial Blood Ionized Calcium 03/08/20 03/08/20 03/08/20 05:35 06:43 06:43 WBC 28.9 H RBC 3.53 L Hgb 9.7 L Hct 30.3 L MCV MCH RDW 15.6 H Plt Count 578 H Lymph % (Auto) [place] # (Auto) Seg Neutrophils % Seg Neuts % (Manual) 93.0 H Lymphocytes % (Manual) 4.0 L Monocytes % (Manual) Seg Neutrophils # Seg Neutrophils # Man 26.9 H Lymphocytes # (Manual) Monocytes # (Manual) Eosinophils # (Manual) PT INR D-Dimer ABG pH POC ABG pCO2 POC ABG pO2 ABG pO2 ABG HCO3 ABG O2 Saturation ABG Base Excess ABG Hemoglobin ABG Oxyhemoglobin ABG Potassium ABG Glucose Oxyhemoglobin Carboxyhemoglobin Sodium 146 H Potassium Chloride Carbon Dioxide 35 H BUN 34 H Creatinine 0.3 L D Glucose 125 H POC Glucose 147 H Ferritin Total Bilirubin Alkaline Phosphatase Lactate Dehydrogenase Troponin T C-Reactive Protein Total Protein 5.9 L Albumin 3.2 L Prealbumin LDL Cholesterol Direct Arterial Blood Glucose Arterial Blood Ionized Calcium Allied health notes reviewed: nursing
[2020-03-08 13:08] LABS: Bacteria,Urine 2+ /HPF (Negative); Bilirubin,Urine NEG (Negative); Blood,Urine NEG (Negative); Color,Urine Yellow (Yellow); Mucus,Urine FEW /HPF; Protein,Urine <15 mg/dL mg/dL (Negative); Urobilinogen,Urine < 2.0 mg/dL (<2.0)
--- NOTE | 2020-03-08 16:43 | Progress Note ---
Assessment and Plan --Acute hypoxic hypercapnic respiratory failure; Intubated on mechanical ventilation. Etiology secondary to sepsis, ALS, multifocal pneumonia (Covid negative). S/p trach placement on 03/07/20 --ALS; Chronic Continue to provide supportive care --Elevated D-dimers; CTA chest, lower extremity venous Doppler both are negative Lovenox for DVT prophylaxis --Bilateral pneumonia; probably community-acquired Continue cefepime and vancomycin ID recommendations appreciated --Sepsis secondary to pneumonia Continue cefepime and vancomycin --Elevated troponin; Serial cardiac enzymes, serial EKGs Echocardiogram, cardiology consult if needed --Hypernatremia Trend sodium Free water via feeding tube --Abdominal distention Obtain bladder scan rule out urine retention,Obtain UA and urine culture --DVT prophylaxis; Lovenox The high probability of a clinically significant, sudden or life threatening deterioration of the [cardiac and respiratory] system(s) required my full and direct attention, intervention and personal management. The aggregate critical care time was [34] minutes. This time is in addition to time spent performing reported procedures but includes the following: [x] Data Review and interpretation [x] Patient assessment and monitoring of vital signs [x] Documentation [x] Medication orders and management Brief history: 59-year-old male patient with significant past medical history of ALS, presented to ED with worsening shortness of breath since the morning [employer]. Patient was on a trilogy machine for breathing 18/11. EMS arrived, patient had O2 sats in the 80s. EMS attempted to place patient on their CPAP machine, however patient did not tolerate. Patient was admitted to the ICU with diagnosis of acute hypoxic respiratory failure and placed on BiPAP. Patient initially tolerated but later deteriorated with respiratory status. CTA chest showed no PE but significant for bilateral pneumonia. Doppler ultrasound also negative for DVT. COVID-19 test ordered. Due to persistent hypoxia, patient was intubated on 02/26/2020 at 1500. Patient now on mechanical ventilation in the ICU s/p trach placement on 03/07/20. Daily course: 02/26/2020. Blood cultures are negative x48 hours and Covid testing negative as well. Continue antibiotics per ID recommendations for community-acquired bilateral pneumonia. Cardiology consultation for elevated troponin. Check echocardiogram. 02/27/2020. Events of yesterday noted with asystole following V. fib arrest. Patient currently on AC mode rate 20, tidal volume 400, FiO2 50% and a PEEP of 6. Follow-up echocardiogram for elevated troponin. Cardiology suspects NSTEMI Type 2 in the setting of acute resp failure. Chest CTA and BLE Dopplers neg. we will discontinue Decadron given the Covid PCR is negative. 02/28/2020. Spoke with the sister Felisa Eli who is the power of mergers and acquisitions attorney regarding advanced directives and she instructed me that she would like to continue with aggressive care at this time. I informed her of the guarded prognosis and high mortality/morbidity and she voiced understanding. Patient currently with AC mode ventilation rate 18, tidal volume 400, FiO2 40% and a PEEP of 6. Continue antibiotics for pneumonia. ID previously consulted. Also consult neurology with regards to ALS. 02/29/2020; patient is intubated and on CPAP patient is alert and oriented. Patient has ALS. Dr. Álvarez spoke with his sister and she wants aggressive care. Continue antibiotics for pneumonia. Neurology consulted for ALS. Prognosis poor 03/01/2020; patient is intubated and on CPAP, patient is alert and oriented. I spoke with his 2 sisters about the management plan. 03/02/2020; patient is intubated and on CPAP. Patient was alert and oriented. I spoke with Dr. mohr and he thinks patient may need mechanical ventilation, likely his disease progressed. Dr. Flowers did debridement this morning. 03/03/2020; patient is intubated and on CPAP, patient was on trilogy and BiPAP at home. Patient has ALS. on spontaneous breathing trial. Patient is alert and oriented but quadriplegic. Patient has severe bilateral pneumonia and is on cefepime and Vanco, ID is following. Patient has sacral decubitus ulcer and debridement was done by Dr. Flowers and there is no osteomyelitis. 03/05. Patient still on broad-spectrum antibiotics. Status post sacral decubitus ulcer debridements-no osteomyelitis. Patient is on AC 25/400/30% PEEP 5. No blood gas results today. 03/06. Plan for tracheostomy by surgery. Still remains intubated. Labs reviewed-sodium 150. Started on free water 200 every 8hr. trend sodium. 03/07: s/p trach placement today, patient placed back on mechanical ventilation with trach. Plan to resume tube feeding with NG tube. Continue to monitor vitals, monitor BMP. 03/08: Patient noted to have distended abdomen with low urinary output. Obtain bladder scan rule out urine retention, UA and urine culture, continue to follow clinically. Subjective Date of service: 03/08/20 Principal diagnosis: Ac on Ch Hypercapnic & hypoxemic Resp Failure; Severe Sepsis; Jamar PNA; ALS Interval history: Patient seen and examined Remains on mechanical ventilation with trach tube Discussed with RN at the bedside Noted to have distended abdomen with low urine output Vitals reviewed Objective - Exam Narrative Exam: GENERAL: Awake. Intubated with trach tube HEAD: No signs of head trauma. EYES: Pupils are equal. Extraocular motions intact. EARS: Hearing grossly intact. MOUTH: Oropharynx is normal. NECK: No adenopathy, no JVD. CHEST: Coarse breath sounds bilaterally CARDIAC: Regular rate and rhythm. S1 and S2, without murmurs, gallops, or rubs. VASCULAR: No Edema. Peripheral pulses normal and equal in all extremities. ABDOMEN: Soft, non tender and distended. Bowel Sounds normal. NEUROLOGIC EXAM: Awake SKIN: No obvious lesions - Constitutional Vitals: Vital Signs - 12hr 03/08/20 03/08/20 03/08/20 05:01 05:31 06:00 Temperature Pulse Rate 106 H 105 H Pulse Rate [ From Monitor] Respiratory 24 30 H Rate Blood Pressure 135/87 135/87 106/74 O2 Sat by Pulse 96 97 Oximetry O2 Sat by Pulse Oximetry [ Assessment] 03/08/20 03/08/20 03/08/20 06:30 07:00 07:30 Temperature Pulse Rate 105 H 106 H 103 H Pulse Rate [ From Monitor] Respiratory 18 21 25 H Rate Blood Pressure 112/77 115/79 117/80 O2 Sat by Pulse 97 98 98 Oximetry O2 Sat by Pulse Oximetry [ Assessment] 03/08/20 03/08/20 03/08/20 07:43 07:46 08:00 Temperature 99.5 F Pulse Rate 101 H 108 H 104 H Pulse Rate [ 102 H From Monitor] Respiratory 15 18 Rate Blood Pressure 117/80 117/80 123/79 O2 Sat by Pulse 98 98 97 Oximetry O2 Sat by Pulse Oximetry [ Assessment] 03/08/20 03/08/20 03/08/20 08:30 09:00 09:30 Temperature Pulse Rate 108 H 118 H 121 H Pulse Rate [ From Monitor] Respiratory 24 28 H 16 Rate Blood Pressure 117/77 120/80 110/77 O2 Sat by Pulse 97 97 97 Oximetry O2 Sat by Pulse Oximetry [ Assessment] 03/08/20 03/08/20 03/08/20 09:39 10:00 10:30 Temperature Pulse Rate 116 H 107 H 101 H Pulse Rate [ From Monitor] Respiratory 26 H 15 Rate Blood Pressure 110/77 116/76 111/74 O2 Sat by Pulse 97 98 Oximetry O2 Sat by Pulse Oximetry [ Assessment] 03/08/20 03/08/20 03/08/20 10:37 11:00 11:30 Temperature Pulse Rate 104 H 93 H 105 H Pulse Rate [ From Monitor] Respiratory 20 22 14 Rate Blood Pressure 111/74 120/79 117/78 O2 Sat by Pulse 98 98 98 Oximetry O2 Sat by Pulse Oximetry [ Assessment] 03/08/20 03/08/20 03/08/20 11:57 12:00 12:30 Temperature 99.8 F H 97.5 F L Pulse Rate 103 H 101 H Pulse Rate [ 115 H From Monitor] Respiratory 16 18 Rate Blood Pressure 124/83 124/81 O2 Sat by Pulse 98 97 Oximetry O2 Sat by Pulse Oximetry [ Assessment] 03/08/20 03/08/20 03/08/20 13:00 13:30 14:00 Temperature Pulse Rate 114 H 114 H 105 H Pulse Rate [ From Monitor] Respiratory 16 17 15 Rate Blood Pressure 126/89 135/89 132/88 O2 Sat by Pulse 98 97 97 Oximetry O2 Sat by Pulse Oximetry [ Assessment] 03/08/20 03/08/20 03/08/20 14:25 14:30 14:40 Temperature Pulse Rate 113 H 115 H Pulse Rate [ From Monitor] Respiratory 17 17 19 Rate Blood Pressure 132/88 130/85 O2 Sat by Pulse 97 98 Oximetry O2 Sat by Pulse 98 Oximetry [ Assessment] 03/08/20 03/08/20 15:00 15:30 Temperature Pulse Rate 110 H 108 H Pulse Rate [ From Monitor] Respiratory 22 20 Rate Blood Pressure 127/88 132/91 O2 Sat by Pulse 97 97 Oximetry O2 Sat by Pulse Oximetry [ Assessment] - Labs CBC & Chem 7: 03/10/20 06:14 03/10/20 06:14 Labs: Abnormal lab results 03/07/20 03/07/20 03/08/20 Range/Units 17:45 23:32 05:35 WBC (4.5-11.0) K/mm3 RBC (3.65-5.03) M/mm3 Hgb (11.8-15.2) gm/dl Hct (35.5-45.6) % RDW (13.2-15.2) % Plt Count (140-440) K/mm3 Seg Neuts % (Manual) (40.0-70.0) % Lymphocytes % (Manual) (13.4-35.0) % Seg Neutrophils # Man (1.8-7.7) K/mm3 POC ABG pCO2 (32.0-48.0) mmHg ABG Hemoglobin (12.0-17.5) ABG Glucose (65-95) mg/dL Sodium (137-145) mmol/L Carbon Dioxide (22-30) mmol/L BUN (9-20) mg/dL Creatinine (0.8-1.3) mg/dL Glucose (75-100) mg/dL POC Glucose 124 H 210 H 147 H (70-105) mg/dL Total Protein (6.3-8.2) g/dL Albumin (3.9-5) g/dL Arterial Blood Glucose (65-95) mg/dL Arterial Blood Ionized Calcium (4.6-5.3) mg/dL Urine WBC (Auto) (0.0-6.0) /HPF 03/08/20 03/08/20 03/08/20 Range/Units 06:43 06:43 08:57 WBC 28.9 H (4.5-11.0) K/mm3 RBC 3.53 L (3.65-5.03) M/mm3 Hgb 9.7 L (11.8-15.2) gm/dl Hct 30.3 L (35.5-45.6) % RDW 15.6 H (13.2-15.2) % Plt Count 578 H (140-440) K/mm3 Seg Neuts % (Manual) 93.0 H (40.0-70.0) % Lymphocytes % (Manual) 4.0 L (13.4-35.0) % Seg Neutrophils # Man 26.9 H (1.8-7.7) K/mm3 POC ABG pCO2 (32.0-48.0) mmHg ABG Hemoglobin (12.0-17.5) ABG Glucose (65-95) mg/dL Sodium 146 H (137-145) mmol/L Carbon Dioxide 35 H (22-30) mmol/L BUN 34 H (9-20) mg/dL Creatinine 0.3 L D (0.8-1.3) mg/dL Glucose 125 H (75-100) mg/dL POC Glucose (70-105) mg/dL Total Protein 5.9 L (6.3-8.2) g/dL Albumin 3.2 L (3.9-5) g/dL Arterial Blood Glucose (65-95) mg/dL Arterial Blood Ionized Calcium (4.6-5.3) mg/dL Urine WBC (Auto) 10.0 H (0.0-6.0) /HPF 03/08/20 03/08/20 Range/Units 11:14 12:34 WBC (4.5-11.0) K/mm3 RBC (3.65-5.03) M/mm3 Hgb (11.8-15.2) gm/dl Hct (35.5-45.6) % RDW (13.2-15.2) % Plt Count (140-440) K/mm3 Seg Neuts % (Manual) (40.0-70.0) % Lymphocytes % (Manual) (13.4-35.0) % Seg Neutrophils # Man (1.8-7.7) K/mm3 POC ABG pCO2 63.1 H (32.0-48.0) mmHg ABG Hemoglobin 10.9 L (12.0-17.5) ABG Glucose 176 H (65-95) mg/dL Sodium (137-145) mmol/L Carbon Dioxide (22-30) mmol/L BUN (9-20) mg/dL Creatinine (0.8-1.3) mg/dL Glucose (75-100) mg/dL POC Glucose 171 H (70-105) mg/dL Total Protein (6.3-8.2) g/dL Albumin (3.9-5) g/dL Arterial Blood Glucose 176 H (65-95) mg/dL Arterial Blood Ionized Calcium 4.5 L (4.6-5.3) mg/dL Urine WBC (Auto) (0.0-6.0) /HPF HEART Score - HEART Score Troponin: Troponin T 0.034 ng/mL (0.00-0.029) H D 02/24/20 19:35
[2020-03-08] MEDS: GLYCOPYRROLATE 2 MG TAB PO SCH (21:50)
[2020-03-08] MEDS: ENOXAPARIN 40 MG/0.4 ML INJ SUB-Q SCH (21:50)
--- NOTE | 2020-03-09 06:20 | Progress Note ---
Assessment and Plan Cultures: Blood culture no growth today SARS CoV2 PCR negative Sputum culture 03/03/2020 Stenotrophomonas Blood culture 03/03/2020 no growth today Blood culture 03/07/2020 pending Assessment: 59 years old female with history of ALS with chronic respiratory failure on home trilogy BiPAP, admitted on 02/24/2020 due to worsening shortness of breath for 24 hours: #Severe sepsis: likely due to bilateral pneumonia +/- left gluteal necrotic pressure ulcer. Remains with low-grade fever and worsening leukocytosis. #Severe bilateral pneumonia: Likely community-acquired pneumonia. Procalcitonin elevated-1.13. CTA shows no PE but multifocal pneumonia with predominance left lower lobe. No DVT on US. Elevated D-dimer -1311. SARS-CoV-2 PCR negative. Sputum culture +Stenotrophomonas. CRP 26-->4. Prcal 1.1-->1.6. Repeat CXR near complete atelectasis resolved. Completed cefepime and vancomycin on 03/06/2020 #Left gluteal necrotic pressure ulcer: S/p debridement, not infected per wound care. #Acute on chronic mixed respiratory failure: Intubated, re intubated overnight. #ALS #Rule out urinary retention: straight cath no urine obtained, UA 03/08 w/o evidence of UTI Recommendations: -obtain abdominal and pelvic CT - worsening leukocytosis -review CT of abdomen shows markedly distended bladder and mild hydronephrosis ? Bladder outlet obstruction -Urology consult -repeat procal -please let me know if patient has had diarrhea - no reported by NS -Continue Levaquin 750 mg IV/PO daily for total 7 days for Stenotrophomonas pneumonia- day 4 of 7 -Monitor fever and leukocytosis -Follow-up repeat blood culture given new fever Will follow Diana Maravilla MD Infectious Diseases [employer] [facility] M [phone] O [phone] Subjective Date of service: 03/09/20 Principal diagnosis: Ac on Ch Hypercapnic & hypoxemic Resp Failure; Severe Sepsis; Jamar PNA; ALS Interval history: Remains on the ventilator with low-grade fever Objective - Exam Narrative Exam: General appearance: Sedated on the ventilator Eyes: anicteric sclerae, moist conjunctivae; no lid-lag; PERRLA HENT: Normocephalic, Atraumatic; normal external ears, nares open, oropharynx limited Neck: Trach in place Lungs: Bilateral rhonchi CV: Tachycardic Abdomen: Soft, bladder distended and tender Extremities: no edema, no cyanosis Skin: No rash. per wound care Left buttock unstageable pressure ulcer measuring 4.5x7x0.9cm. Wound bed is 7o% necrotic. Small amounts of yellow drainage with a mild odor noted. Psych: no agitated Neuro: Alert on the ventilator - Constitutional Vitals: Vital Signs Temp Pulse Resp BP Pulse Ox 99.1 F 107 H 12 128/80 97 03/09/20 04:00 03/09/20 06:00 03/09/20 06:00 03/09/20 06:00 03/09/20 04:00 Temperature -Last 24 Hours Temperature 99.1 F Temperature 99.1 F Temperature 99.0 F Temperature 100.0 F Temperature 100 F Temperature 99.2 F Temperature 97.5 F Temperature 99.8 F Temperature 99.5 F - Labs CBC & Chem 7: 03/09/20 08:35 03/09/20 08:35 Labs: Abnormal lab results 03/08/20 03/08/20 03/08/20 Range/Units 06:43 06:43 08:57 WBC 28.9 H (4.5-11.0) K/mm3 RBC 3.53 L (3.65-5.03) M/mm3 Hgb 9.7 L (11.8-15.2) gm/dl Hct 30.3 L (35.5-45.6) % RDW 15.6 H (13.2-15.2) % Plt Count 578 H (140-440) K/mm3 Seg Neuts % (Manual) 93.0 H (40.0-70.0) % Lymphocytes % (Manual) 4.0 L (13.4-35.0) % Seg Neutrophils # Man 26.9 H (1.8-7.7) K/mm3 POC ABG pCO2 (32.0-48.0) mmHg ABG Hemoglobin (12.0-17.5) ABG Glucose (65-95) mg/dL Sodium 146 H (137-145) mmol/L Carbon Dioxide 35 H (22-30) mmol/L BUN 34 H (9-20) mg/dL Creatinine 0.3 L D (0.8-1.3) mg/dL Glucose 125 H (75-100) mg/dL POC Glucose (70-105) mg/dL Total Protein 5.9 L (6.3-8.2) g/dL Albumin 3.2 L (3.9-5) g/dL Arterial Blood Glucose (65-95) mg/dL Arterial Blood Ionized Calcium (4.6-5.3) mg/dL Urine WBC (Auto) 10.0 H (0.0-6.0) /HPF 03/08/20 03/08/20 03/08/20 Range/Units 11:14 12:34 18:02 WBC (4.5-11.0) K/mm3 RBC (3.65-5.03) M/mm3 Hgb (11.8-15.2) gm/dl Hct (35.5-45.6) % RDW (13.2-15.2) % Plt Count (140-440) K/mm3 Seg Neuts % (Manual) (40.0-70.0) % Lymphocytes % (Manual) (13.4-35.0) % Seg Neutrophils # Man (1.8-7.7) K/mm3 POC ABG pCO2 63.1 H (32.0-48.0) mmHg ABG Hemoglobin 10.9 L (12.0-17.5) ABG Glucose 176 H (65-95) mg/dL Sodium (137-145) mmol/L Carbon Dioxide (22-30) mmol/L BUN (9-20) mg/dL Creatinine (0.8-1.3) mg/dL Glucose (75-100) mg/dL POC Glucose 171 H 157 H (70-105) mg/dL Total Protein (6.3-8.2) g/dL Albumin (3.9-5) g/dL Arterial Blood Glucose 176 H (65-95) mg/dL Arterial Blood Ionized Calcium 4.5 L (4.6-5.3) mg/dL Urine WBC (Auto) (0.0-6.0) /HPF 03/08/20 03/09/20 Range/Units 23:43 05:49 WBC (4.5-11.0) K/mm3 RBC (3.65-5.03) M/mm3 Hgb (11.8-15.2) gm/dl Hct (35.5-45.6) % RDW (13.2-15.2) % Plt Count (140-440) K/mm3 Seg Neuts % (Manual) (40.0-70.0) % Lymphocytes % (Manual) (13.4-35.0) % Seg Neutrophils # Man (1.8-7.7) K/mm3 POC ABG pCO2 (32.0-48.0) mmHg ABG Hemoglobin (12.0-17.5) ABG Glucose (65-95) mg/dL Sodium (137-145) mmol/L Carbon Dioxide (22-30) mmol/L BUN (9-20) mg/dL Creatinine (0.8-1.3) mg/dL Glucose (75-100) mg/dL POC Glucose 134 H 163 H (70-105) mg/dL Total Protein (6.3-8.2) g/dL Albumin (3.9-5) g/dL Arterial Blood Glucose (65-95) mg/dL Arterial Blood Ionized Calcium (4.6-5.3) mg/dL Urine WBC (Auto) (0.0-6.0) /HPF
[2020-03-09] MEDS: METOPROLOL TARTRATE 25 MG TAB PO SCH ×2 (08:59→23:08)
[2020-03-09] MEDS: LANSOPRAZOLE 30 MG SOLUTAB FEEDTUBE SCH (08:59)
[2020-03-09] MEDS: GLYCOPYRROLATE 2 MG TAB PO SCH ×3 (08:59→23:08)
[2020-03-09] MEDS: SCOPOLAMINE TRANSDERMAL PATCH 72 HR TD SCH (09:00)
[2020-03-09 09:28] LABS: Hematocrit 28.8 % (35.5-45.6); Hemoglobin 9.3 gm/dl (11.8-15.2); Mean Corpuscular HGB Conc 32 % (32-34); Mean Corpuscular Volume 86 fl (84-94); Platelet Count 521 K/mm3 (140-440); Red Blood Count 3.36 M/mm3 (3.65-5.03); Red Cell Distribution Width 15.9 % (13.2-15.2)
[2020-03-09 09:49] LABS: BUN/Creatinine Ratio 70; Blood Urea Nitrogen 63 mg/dL (9-20); Calcium 8.5 mg/dL (8.4-10.2); Hemolysis Index 0
[2020-03-09 11:15] LABS: Anisocytosis Few; Basophils % (Manual) 0 % (0.0-1.8); Eosinophils % (Manual) 0 % (0.0-4.3); Hypochromasia Few; Total Cells Counted 100
[2020-03-09 11:16] LABS: Platelet Estimate Consistent w Auto
[2020-03-09] MEDS: MORPHINE 2 MG/1 ML INJ IV PRN ×2 (11:18→23:02)
--- NOTE | 2020-03-09 12:34 | Progress Note ---
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 Respiratory Failure Severe Sepsis with Shock Bilateral Pneumonia (Possible aspiration) History of ALS on Trilogy Oropharyngeal Dysphagia PUI-COVID Acute toxic metabolic encephalopathy Elevated D-dimer Elevated troponin possibly type 2 ischemia - bolus 500 mls IVNS then run @ 100 ml's/hr X 10 hours re: hypotension - urgent Urology consultation (Asked RN to call attending for marketing consultant) - failed SBT, rest on full MVS for now - start Flomax re: enlarged prostrate on CT scan - continue Robinul for secretion control - continue daily SAT and SBT assessment as tolerated in am - wound care per RN/WCN - continue care as below otherwise; - continue Scopolamine patch for secretion control - wean supplemental oxygen for target O2 sat's > 92% acutely - bronchodilators with pulmonary hygiene per RT - VAP bundle addressed - continue lung protective strategies - continue bronchodilators with pulmonary hygiene per RT - wean per pulmonary driven protocols otherwise - sedation prn for target RASS 0 to -1 - empiric antiinfectives per ID rec's (Rocephin and Zithromax) - COVID-19 isolation (Airborne & Contact) - empiric Dexamethasone - follow COVID-19 test results - trend inflammatory markers to aid clinical decision making - enteral nutrition at goal rate as tolerated - Aspiration precautions - accuchecks with glycemic control per SSI (While critically ill target blood glucose of 140-180 mg/dL; avoid hypoglycemia) - avoid nephrotoxins, renally dose all medications - avoid benzodiazepine's, reduce the possibility of delirium - prn analgesia per CPOT score - Maintenance of sleep-wake cycle, avoid delirium - aspiration precautions - G.I. & VTE prophylaxis - PT/OT/ROM exercises - mobility protocols for pressure ulcer prophylaxis - Monitor hemodynamics closely - continue other care per attending / other consultants - discharge planning ongoing concurrently .... Re-evaluate in am & prn CONDITION: CRITICAL PROGNOSIS: GUARDED CODE STATUS: FULL CODE The high probability of a clinically significant, sudden or life-threatening deterioration of the [respiratory, cardiovascular & neurologic] system(s) required my full and direct attention, intervention and personal management. The aggregate critical care time was [35] minutes without overlap. Time includes spent on; [x] Data Review and interpretation [x] Patient assessment and monitoring of vital signs [x] Documentation [x] Medication orders and management Subjective Date of service: 03/09/20 Principal diagnosis: Ac on Ch Hypercapnic & hypoxemic Resp Failure; Severe Sepsis; Jamar PNA; ALS Interval history: Patient is seen today for: Acute on Chronic Hypercapnic & hypoxemic Respiratory Failure; Severe Sepsis with Shock; Bilateral Pneumonia (Possible aspiration); History of ALS on Trilogy; PUI-COVID; Acute toxic metabolic encephalopathy Seen and examined at bedside; 24hour events reviewed; nursing and respiratory care staff consulted; no adverse overnight events reported to me; resting in bed; remains on MVS; secretions improved; CT abd & pelvis shows marked bladder distension; RN unable to get significant fluid return with straght catheterizing; No N/V/F/C Objective Vital Signs - 12hr 03/09/20 03/09/20 03/09/20 01:00 01:30 02:00 Temperature Pulse Rate 106 H 110 H 98 H Pulse Rate [ From Monitor] Respiratory 13 17 15 Rate Blood Pressure 125/82 122/82 116/75 O2 Sat by Pulse 99 98 97 Oximetry O2 Sat by Pulse Oximetry [ Assessment] 03/09/20 03/09/20 03/09/20 02:30 02:50 03:00 Temperature Pulse Rate 98 H 99 H Pulse Rate [ From Monitor] Respiratory 14 14 Rate Blood Pressure 116/72 126/84 O2 Sat by Pulse 97 95 Oximetry O2 Sat by Pulse 97 Oximetry [ Assessment] 03/09/20 03/09/20 03/09/20 03:30 04:00 04:30 Temperature 99.1 F Pulse Rate 102 H 107 H 111 H Pulse Rate [ 109 H From Monitor] Respiratory 16 14 22 Rate Blood Pressure 128/81 135/85 144/88 O2 Sat by Pulse 97 Oximetry O2 Sat by Pulse Oximetry [ Assessment] 03/09/20 03/09/20 03/09/20 04:47 05:00 05:30 Temperature Pulse Rate 110 H 108 H 111 H Pulse Rate [ From Monitor] Respiratory 18 15 Rate Blood Pressure 144/88 130/83 128/82 O2 Sat by Pulse Oximetry O2 Sat by Pulse Oximetry [ Assessment] 03/09/20 03/09/20 03/09/20 06:00 06:30 07:00 Temperature Pulse Rate 107 H 110 H 104 H Pulse Rate [ From Monitor] Respiratory 12 18 20 Rate Blood Pressure 128/80 128/85 125/80 O2 Sat by Pulse Oximetry O2 Sat by Pulse Oximetry [ Assessment] 03/09/20 03/09/20 03/09/20 07:30 08:00 08:30 Temperature 99 F Pulse Rate 103 H 100 H 98 H Pulse Rate [ 107 H From Monitor] Respiratory 17 17 14 Rate Blood Pressure 128/82 110/73 110/73 O2 Sat by Pulse 98 98 Oximetry O2 Sat by Pulse 98 Oximetry [ Assessment] 03/09/20 03/09/20 03/09/20 08:59 09:00 09:10 Temperature Pulse Rate 99 H 100 H 87 Pulse Rate [ From Monitor] Respiratory 18 9 L Rate Blood Pressure 110/73 109/73 117/79 O2 Sat by Pulse 98 98 Oximetry O2 Sat by Pulse Oximetry [ Assessment] 03/09/20 03/09/20 03/09/20 09:30 10:00 11:18 Temperature Pulse Rate 89 85 Pulse Rate [ From Monitor] Respiratory 15 17 12 Rate Blood Pressure 117/79 129/84 O2 Sat by Pulse 98 98 Oximetry O2 Sat by Pulse Oximetry [ Assessment] 03/09/20 11:38 Temperature Pulse Rate 94 H Pulse Rate [ From Monitor] Respiratory 12 Rate Blood Pressure 122/83 O2 Sat by Pulse 98 Oximetry O2 Sat by Pulse Oximetry [ Assessment] Constitutional: no acute distress, other (thin middle aged male with mildly increased respiratory effort at rest on MVS) Eyes: non-icteric ENT: oropharynx moist, other (S/P Tracheostomy) Neck: supple, no lymphadenopathy, no JVD Effort: mildly labored Ascultation: Bilateral: diminished breath sounds, rhonchi (and referred upper airway sounds) Percussion: Bilateral: not dull Cardiovascular: regular rate and rhythm, other (S1,S2, no murmurs) Gastrointestinal: normoactive bowel sounds, soft, non-tender, non-distended, other (+ distended but non tender suprapubis) Integumentary: normal, decubitus ulcer (sacral / gluteal) Extremities: no cyanosis, no edema, pulses normal, other (atrophic looking limbs) Neurologic: pupils equal and round, other (motor strength in extremities 1-2/5) Psychiatric: mood appropriate, affect normal CBC and BMP: 03/09/20 08:35 03/09/20 08:35 ABG, PT/INR, D-dimer: ABG ABG pH 7.371 (7.320-7.450) 03/08/20 12:34 POC ABG pCO2 63.1 mmHg (32.0-48.0) H 03/08/20 12:34 ABG pCO2 60.1 mm Hg 03/06/20 04:34 POC ABG pO2 90.5 mmHg (83-108) 03/08/20 12:34 ABG pO2 88.6 mm Hg (80.0-90.0) 03/06/20 04:34 POC ABG HCO3 35.7 03/08/20 12:34 ABG O2 Saturation 97.0 % (95.0-99.0) 03/06/20 04:34 PT/INR, D-dimer PT 15.6 Sec. (12.2-14.9) H 02/24/20 09:19 INR 1.21 (0.87-1.13) H 02/24/20 09:19 D-Dimer 1311.96 ng/mlDDU (0-234) H 02/24/20 09:19 Abnormal lab findings: Abnormal Labs 02/24/20 02/24/20 02/24/20 09:19 09:19 09:19 WBC 20.2 H RBC 5.05 H Hgb Hct MCV MCH RDW 15.3 H Plt Count Lymph % (Auto) [place] # (Auto) Seg Neutrophils % Seg Neuts % (Manual) 86.0 H Lymphocytes % (Manual) 1.0 L Monocytes % (Manual) Seg Neutrophils # Seg Neutrophils # Man 17.4 H Lymphocytes # (Manual) 0.2 L Monocytes # (Manual) Eosinophils # (Manual) PT 15.6 H INR 1.21 H D-Dimer 1311.96 H ABG pH POC ABG pCO2 POC ABG pO2 ABG pO2 ABG HCO3 ABG O2 Saturation ABG Base Excess ABG Hemoglobin ABG Oxyhemoglobin ABG Potassium ABG Glucose Oxyhemoglobin Carboxyhemoglobin Sodium 135 L Potassium 3.2 L Chloride 92.2 L Carbon Dioxide BUN 6 L Creatinine < 0.2 L Glucose 124 H POC Glucose Ferritin Total Bilirubin 2.30 H Alkaline Phosphatase 132 H Lactate Dehydrogenase Troponin T 0.080 H C-Reactive Protein Total Protein Albumin 3.6 L Prealbumin LDL Cholesterol Direct 41 L Arterial Blood Glucose Arterial Blood Ionized Calcium Urine WBC (Auto) 02/24/20 02/24/20 02/24/20 09:19 09:58 10:01 WBC RBC Hgb Hct MCV MCH RDW Plt Count Lymph % (Auto) [place] # (Auto) Seg Neutrophils % Seg Neuts % (Manual) Lymphocytes % (Manual) Monocytes % (Manual) Seg Neutrophils # Seg Neutrophils # Man Lymphocytes # (Manual) Monocytes # (Manual) Eosinophils # (Manual) PT INR D-Dimer ABG pH 7.176 L* POC ABG pCO2 POC ABG pO2 ABG pO2 91.2 H ABG HCO3 ABG O2 Saturation ABG Base Excess -4.6 L ABG Hemoglobin ABG Oxyhemoglobin ABG Potassium ABG Glucose Oxyhemoglobin 92.6 L Carboxyhemoglobin Sodium Potassium Chloride Carbon Dioxide BUN Creatinine Glucose POC Glucose Ferritin 1715.0 H Total Bilirubin Alkaline Phosphatase Lactate Dehydrogenase 303 H Troponin T C-Reactive Protein 26.10 H Total Protein Albumin Prealbumin LDL Cholesterol Direct Arterial Blood Glucose Arterial Blood Ionized Calcium Urine WBC (Auto) 02/24/20 02/24/20 02/24/20 11:52 13:45 19:35 WBC RBC Hgb Hct MCV MCH RDW Plt Count Lymph % (Auto) [place] # (Auto) Seg Neutrophils % Seg Neuts % (Manual) Lymphocytes % (Manual) Monocytes % (Manual) Seg Neutrophils # Seg Neutrophils # Man Lymphocytes # (Manual) Monocytes # (Manual) Eosinophils # (Manual) PT INR D-Dimer ABG pH 7.051 L* 7.300 L POC ABG pCO2 POC ABG pO2 ABG pO2 94.7 H 75.1 L ABG HCO3 18.0 L ABG O2 Saturation 93.5 L ABG Base Excess -6.8 L -7.8 L ABG Hemoglobin 13.2 L 11.9 L ABG Oxyhemoglobin ABG Potassium ABG Glucose Oxyhemoglobin 91.0 L 92.7 L Carboxyhemoglobin Sodium Potassium Chloride Carbon Dioxide BUN Creatinine Glucose POC Glucose Ferritin Total Bilirubin Alkaline Phosphatase Lactate Dehydrogenase Troponin T 0.034 H D C-Reactive Protein Total Protein Albumin Prealbumin LDL Cholesterol Direct Arterial Blood Glucose Arterial Blood Ionized Calcium Urine WBC (Auto) 02/25/20 02/25/20 02/25/20 04:00 04:00 12:26 WBC 22.9 H RBC Hgb Hct MCV 83 L MCH 27 L RDW Plt Count 468 H Lymph % (Auto) [place] # (Auto) Seg Neutrophils % Seg Neuts % (Manual) 89.0 H Lymphocytes % (Manual) 7.0 L Monocytes % (Manual) Seg Neutrophils # Seg Neutrophils # Man 20.4 H Lymphocytes # (Manual) Monocytes # (Manual) Eosinophils # (Manual) PT INR D-Dimer ABG pH POC ABG pCO2 POC ABG pO2 ABG pO2 ABG HCO3 ABG O2 Saturation ABG Base Excess ABG Hemoglobin ABG Oxyhemoglobin ABG Potassium 2.6 L ABG Glucose 142 H Oxyhemoglobin Carboxyhemoglobin Sodium Potassium 3.2 L Chloride Carbon Dioxide 18 L BUN Creatinine 0.2 L Glucose 114 H POC Glucose Ferritin Total Bilirubin Alkaline Phosphatase Lactate Dehydrogenase Troponin T C-Reactive Protein Total Protein Albumin 3.5 L Prealbumin LDL Cholesterol Direct Arterial Blood Glucose 142 H Arterial Blood Ionized Calcium Urine WBC (Auto) 02/26/20 02/26/20 02/26/20 15:58 17:00 23:43 WBC RBC Hgb Hct MCV MCH RDW Plt Count Lymph % (Auto) [place] # (Auto) Seg Neutrophils % Seg Neuts % (Manual) Lymphocytes % (Manual) Monocytes % (Manual) Seg Neutrophils # Seg Neutrophils # Man Lymphocytes # (Manual) Monocytes # (Manual) Eosinophils # (Manual) PT INR D-Dimer ABG pH 7.502 H POC ABG pCO2 POC ABG pO2 213.6 H ABG pO2 ABG HCO3 ABG O2 Saturation ABG Base Excess ABG Hemoglobin ABG Oxyhemoglobin 99.2 H ABG Potassium 2.9 L ABG Glucose 160 H Oxyhemoglobin Carboxyhemoglobin 0.4 L Sodium Potassium Chloride Carbon Dioxide BUN Creatinine Glucose POC Glucose 189 H 120 H Ferritin Total Bilirubin Alkaline Phosphatase Lactate Dehydrogenase Troponin T C-Reactive Protein Total Protein Albumin Prealbumin LDL Cholesterol Direct Arterial Blood Glucose 160 H Arterial Blood Ionized Calcium 4.5 L Urine WBC (Auto) 02/27/20 02/27/20 02/27/20 05:00 07:04 17:45 WBC RBC Hgb Hct MCV MCH RDW Plt Count Lymph % (Auto) [place] # (Auto) Seg Neutrophils % Seg Neuts % (Manual) Lymphocytes % (Manual) Monocytes % (Manual) Seg Neutrophils # Seg Neutrophils # Man Lymphocytes # (Manual) Monocytes # (Manual) Eosinophils # (Manual) PT INR D-Dimer ABG pH 7.524 H POC ABG pCO2 POC ABG pO2 ABG pO2 ABG HCO3 ABG O2 Saturation ABG Base Excess ABG Hemoglobin ABG Oxyhemoglobin ABG Potassium 3.0 L ABG Glucose 143 H Oxyhemoglobin Carboxyhemoglobin Sodium Potassium Chloride Carbon Dioxide BUN Creatinine Glucose POC Glucose 154 H 175 H Ferritin Total Bilirubin Alkaline Phosphatase Lactate Dehydrogenase Troponin T C-Reactive Protein Total Protein Albumin Prealbumin LDL Cholesterol Direct Arterial Blood Glucose 143 H Arterial Blood Ionized Calcium Urine WBC (Auto) 02/27/20 02/28/20 02/28/20 Unknown 00:21 04:15 WBC 18.7 H RBC Hgb Hct MCV MCH RDW Plt Count Lymph % (Auto) 8.7 L [place] # (Auto) 1.2 H Seg Neutrophils % 84.6 H Seg Neuts % (Manual) Lymphocytes % (Manual) Monocytes % (Manual) Seg Neutrophils # 15.9 H Seg Neutrophils # Man Lymphocytes # (Manual) Monocytes # (Manual) Eosinophils # (Manual) PT INR D-Dimer ABG pH POC ABG pCO2 POC ABG pO2 ABG pO2 ABG HCO3 ABG O2 Saturation ABG Base Excess ABG Hemoglobin ABG Oxyhemoglobin ABG Potassium ABG Glucose Oxyhemoglobin Carboxyhemoglobin Sodium Potassium 2.9 L* Chloride Carbon Dioxide 33 H D BUN Creatinine < 0.2 L Glucose 157 H POC Glucose 134 H Ferritin Total Bilirubin Alkaline Phosphatase Lactate Dehydrogenase Troponin T C-Reactive Protein Total Protein Albumin Prealbumin LDL Cholesterol Direct Arterial Blood Glucose Arterial Blood Ionized Calcium Urine WBC (Auto) 02/28/20 02/28/20 02/28/20 04:15 05:16 05:39 WBC RBC Hgb Hct MCV MCH RDW Plt Count Lymph % (Auto) [place] # (Auto) Seg Neutrophils % Seg Neuts % (Manual) Lymphocytes % (Manual) Monocytes % (Manual) Seg Neutrophils # Seg Neutrophils # Man Lymphocytes # (Manual) Monocytes # (Manual) Eosinophils # (Manual) PT INR D-Dimer ABG pH POC ABG pCO2 POC ABG pO2 ABG pO2 142.9 H ABG HCO3 34.1 H ABG O2 Saturation ABG Base Excess 8.3 H ABG Hemoglobin ABG Oxyhemoglobin ABG Potassium ABG Glucose Oxyhemoglobin Carboxyhemoglobin Sodium 151 H Potassium Chloride Carbon Dioxide 32 H BUN Creatinine 0.2 L Glucose 167 H POC Glucose 138 H Ferritin Total Bilirubin Alkaline Phosphatase Lactate Dehydrogenase Troponin T C-Reactive Protein Total Protein Albumin Prealbumin LDL Cholesterol Direct Arterial Blood Glucose Arterial Blood Ionized Calcium Urine WBC (Auto) 02/28/20 02/28/20 02/28/20 11:05 11:33 12:54 WBC RBC Hgb Hct MCV MCH RDW Plt Count Lymph % (Auto) [place] # (Auto) Seg Neutrophils % Seg Neuts % (Manual) Lymphocytes % (Manual) Monocytes % (Manual) Seg Neutrophils # Seg Neutrophils # Man Lymphocytes # (Manual) Monocytes # (Manual) Eosinophils # (Manual) PT INR D-Dimer ABG pH POC ABG pCO2 POC ABG pO2 ABG pO2 ABG HCO3 ABG O2 Saturation ABG Base Excess ABG Hemoglobin ABG Oxyhemoglobin ABG Potassium ABG Glucose Oxyhemoglobin Carboxyhemoglobin Sodium Potassium Chloride Carbon Dioxide BUN Creatinine Glucose POC Glucose 160 H Ferritin Total Bilirubin Alkaline Phosphatase Lactate Dehydrogenase Troponin T C-Reactive Protein 4.70 H Total Protein Albumin Prealbumin 0.090 L LDL Cholesterol Direct Arterial Blood Glucose Arterial Blood Ionized Calcium Urine WBC (Auto) 02/28/20 02/29/20 02/29/20 17:34 00:44 04:05 WBC 19.6 H RBC Hgb Hct MCV MCH 27 L RDW 15.4 H Plt Count Lymph % (Auto) [place] # (Auto) Seg Neutrophils % Seg Neuts % (Manual) 86.0 H Lymphocytes % (Manual) 7.0 L Monocytes % (Manual) Seg Neutrophils # Seg Neutrophils # Man 16.9 H Lymphocytes # (Manual) Monocytes # (Manual) 1.2 H Eosinophils # (Manual) PT INR D-Dimer ABG pH POC ABG pCO2 POC ABG pO2 ABG pO2 ABG HCO3 ABG O2 Saturation ABG Base Excess ABG Hemoglobin ABG Oxyhemoglobin ABG Potassium ABG Glucose Oxyhemoglobin Carboxyhemoglobin Sodium Potassium Chloride Carbon Dioxide BUN Creatinine Glucose POC Glucose 136 H 156 H Ferritin Total Bilirubin Alkaline Phosphatase Lactate Dehydrogenase Troponin T C-Reactive Protein Total Protein Albumin Prealbumin LDL Cholesterol Direct Arterial Blood Glucose Arterial Blood Ionized Calcium Urine WBC (Auto) 02/29/20 02/29/20 02/29/20 04:05 05:14 05:33 WBC RBC Hgb Hct MCV MCH RDW Plt Count Lymph % (Auto) [place] # (Auto) Seg Neutrophils % Seg Neuts % (Manual) Lymphocytes % (Manual) Monocytes % (Manual) Seg Neutrophils # Seg Neutrophils # Man Lymphocytes # (Manual) Monocytes # (Manual) Eosinophils # (Manual) PT INR D-Dimer ABG pH POC ABG pCO2 54.3 H POC ABG pO2 124.8 H ABG pO2 ABG HCO3 ABG O2 Saturation ABG Base Excess ABG Hemoglobin ABG Oxyhemoglobin ABG Potassium ABG Glucose 185 H Oxyhemoglobin Carboxyhemoglobin Sodium 148 H Potassium Chloride Carbon Dioxide 33 H BUN Creatinine < 0.2 L Glucose 173 H POC Glucose 152 H Ferritin Total Bilirubin Alkaline Phosphatase Lactate Dehydrogenase Troponin T C-Reactive Protein Total Protein Albumin Prealbumin LDL Cholesterol Direct Arterial Blood Glucose 185 H Arterial Blood Ionized Calcium Urine WBC (Auto) 03/01/20 03/01/20 03/01/20 00:00 03:45 04:33 WBC 23.1 H RBC Hgb Hct MCV MCH 27 L RDW 15.3 H Plt Count Lymph % (Auto) [place] # (Auto) Seg Neutrophils % Seg Neuts % (Manual) 92.0 H Lymphocytes % (Manual) 6.0 L Monocytes % (Manual) Seg Neutrophils # Seg Neutrophils # Man 21.3 H Lymphocytes # (Manual) Monocytes # (Manual) Eosinophils # (Manual) 0.5 H PT INR D-Dimer ABG pH 7.492 H POC ABG pCO2 POC ABG pO2 ABG pO2 157.1 H ABG HCO3 32.3 H ABG O2 Saturation ABG Base Excess 8.1 H ABG Hemoglobin 13.2 L ABG Oxyhemoglobin ABG Potassium ABG Glucose Oxyhemoglobin Carboxyhemoglobin Sodium Potassium Chloride Carbon Dioxide BUN Creatinine Glucose POC Glucose 109 H Ferritin Total Bilirubin Alkaline Phosphatase Lactate Dehydrogenase Troponin T C-Reactive Protein Total Protein Albumin Prealbumin LDL Cholesterol Direct Arterial Blood Glucose Arterial Blood Ionized Calcium Urine WBC (Auto) 03/01/20 03/01/20 03/01/20 04:33 05:29 12:32 WBC RBC Hgb Hct MCV MCH RDW Plt Count Lymph % (Auto) [place] # (Auto) Seg Neutrophils % Seg Neuts % (Manual) Lymphocytes % (Manual) Monocytes % (Manual) Seg Neutrophils # Seg Neutrophils # Man Lymphocytes # (Manual) Monocytes # (Manual) Eosinophils # (Manual) PT INR D-Dimer ABG pH POC ABG pCO2 POC ABG pO2 ABG pO2 ABG HCO3 ABG O2 Saturation ABG Base Excess ABG Hemoglobin ABG Oxyhemoglobin ABG Potassium ABG Glucose Oxyhemoglobin Carboxyhemoglobin Sodium 146 H Potassium Chloride Carbon Dioxide 32 H BUN Creatinine < 0.2 L Glucose 120 H POC Glucose 120 H 128 H Ferritin Total Bilirubin Alkaline Phosphatase Lactate Dehydrogenase Troponin T C-Reactive Protein Total Protein Albumin Prealbumin LDL Cholesterol Direct Arterial Blood Glucose Arterial Blood Ionized Calcium Urine WBC (Auto) 03/01/20 03/01/20 03/02/20 17:38 23:46 06:13 WBC RBC Hgb Hct MCV MCH RDW Plt Count Lymph % (Auto) [place] # (Auto) Seg Neutrophils % Seg Neuts % (Manual) Lymphocytes % (Manual) Monocytes % (Manual) Seg Neutrophils # Seg Neutrophils # Man Lymphocytes # (Manual) Monocytes # (Manual) Eosinophils # (Manual) PT INR D-Dimer ABG pH POC ABG pCO2 POC ABG pO2 ABG pO2 ABG HCO3 ABG O2 Saturation ABG Base Excess ABG Hemoglobin ABG Oxyhemoglobin ABG Potassium ABG Glucose Oxyhemoglobin Carboxyhemoglobin Sodium Potassium Chloride Carbon Dioxide BUN Creatinine Glucose POC Glucose 114 H 121 H 120 H Ferritin Total Bilirubin Alkaline Phosphatase Lactate Dehydrogenase Troponin T C-Reactive Protein Total Protein Albumin Prealbumin LDL Cholesterol Direct Arterial Blood Glucose Arterial Blood Ionized Calcium Urine WBC (Auto) 03/02/20 03/02/20 03/03/20 09:47 09:47 10:21 WBC 23.6 H RBC Hgb Hct MCV MCH RDW 15.3 H Plt Count 494 H Lymph % (Auto) [place] # (Auto) Seg Neutrophils % Seg Neuts % (Manual) 85.0 H Lymphocytes % (Manual) 6.0 L Monocytes % (Manual) Seg Neutrophils # Seg Neutrophils # Man 20.1 H Lymphocytes # (Manual) Monocytes # (Manual) 1.7 H Eosinophils # (Manual) PT INR D-Dimer ABG pH POC ABG pCO2 POC ABG pO2 ABG pO2 ABG HCO3 ABG O2 Saturation ABG Base Excess ABG Hemoglobin ABG Oxyhemoglobin ABG Potassium 3.3 L ABG Glucose 158 H Oxyhemoglobin Carboxyhemoglobin Sodium Potassium Chloride Carbon Dioxide BUN Creatinine < 0.2 L Glucose 177 H POC Glucose Ferritin Total Bilirubin Alkaline Phosphatase Lactate Dehydrogenase Troponin T C-Reactive Protein Total Protein Albumin Prealbumin LDL Cholesterol Direct Arterial Blood Glucose 158 H Arterial Blood Ionized Calcium Urine WBC (Auto) 03/03/20 03/04/20 03/04/20 21:30 00:00 12:23 WBC RBC Hgb Hct MCV MCH RDW Plt Count Lymph % (Auto) [place] # (Auto) Seg Neutrophils % Seg Neuts % (Manual) Lymphocytes % (Manual) Monocytes % (Manual) Seg Neutrophils # Seg Neutrophils # Man Lymphocytes # (Manual) Monocytes # (Manual) Eosinophils # (Manual) PT INR D-Dimer ABG pH 7.328 L POC ABG pCO2 POC ABG pO2 ABG pO2 68.4 L ABG HCO3 35.0 H ABG O2 Saturation 93.9 L ABG Base Excess 6.8 H ABG Hemoglobin 12.7 L ABG Oxyhemoglobin ABG Potassium ABG Glucose Oxyhemoglobin 91.9 L Carboxyhemoglobin Sodium Potassium Chloride Carbon Dioxide BUN Creatinine Glucose POC Glucose 187 H 163 H Ferritin Total Bilirubin Alkaline Phosphatase Lactate Dehydrogenase Troponin T C-Reactive Protein Total Protein Albumin Prealbumin LDL Cholesterol Direct Arterial Blood Glucose Arterial Blood Ionized Calcium Urine WBC (Auto) 03/04/20 03/04/20 03/05/20 18:15 21:30 06:02 WBC RBC Hgb Hct MCV MCH RDW Plt Count Lymph % (Auto) [place] # (Auto) Seg Neutrophils % Seg Neuts % (Manual) Lymphocytes % (Manual) Monocytes % (Manual) Seg Neutrophils # Seg Neutrophils # Man Lymphocytes # (Manual) Monocytes # (Manual) Eosinophils # (Manual) PT INR D-Dimer ABG pH 7.297 L POC ABG pCO2 POC ABG pO2 ABG pO2 ABG HCO3 41.0 H ABG O2 Saturation ABG Base Excess 11.0 H ABG Hemoglobin 13.1 L ABG Oxyhemoglobin ABG Potassium ABG Glucose Oxyhemoglobin 94.5 L Carboxyhemoglobin Sodium Potassium Chloride Carbon Dioxide BUN Creatinine Glucose POC Glucose 192 H 127 H Ferritin Total Bilirubin Alkaline Phosphatase Lactate Dehydrogenase Troponin T C-Reactive Protein Total Protein Albumin Prealbumin LDL Cholesterol Direct Arterial Blood Glucose Arterial Blood Ionized Calcium Urine WBC (Auto) 03/05/20 03/05/20 03/06/20 12:09 16:42 00:24 WBC RBC Hgb Hct MCV MCH RDW Plt Count Lymph % (Auto) [place] # (Auto) Seg Neutrophils % Seg Neuts % (Manual) Lymphocytes % (Manual) Monocytes % (Manual) Seg Neutrophils # Seg Neutrophils # Man Lymphocytes # (Manual) Monocytes # (Manual) Eosinophils # (Manual) PT INR D-Dimer ABG pH POC ABG pCO2 POC ABG pO2 ABG pO2 ABG HCO3 ABG O2 Saturation ABG Base Excess ABG Hemoglobin ABG Oxyhemoglobin ABG Potassium ABG Glucose Oxyhemoglobin Carboxyhemoglobin Sodium Potassium Chloride Carbon Dioxide BUN Creatinine Glucose POC Glucose 147 H 114 H 134 H Ferritin Total Bilirubin Alkaline Phosphatase Lactate Dehydrogenase Troponin T C-Reactive Protein Total Protein Albumin Prealbumin LDL Cholesterol Direct Arterial Blood Glucose Arterial Blood Ionized Calcium Urine WBC (Auto) 03/06/20 03/06/20 03/06/20 04:34 05:53 06:08 WBC 25.4 H RBC Hgb 10.5 L Hct 32.7 L MCV MCH 27 L RDW 15.3 H Plt Count 634 H Lymph % (Auto) [place] # (Auto) Seg Neutrophils % Seg Neuts % (Manual) 88.0 H Lymphocytes % (Manual) 2.0 L Monocytes % (Manual) 8.0 H Seg Neutrophils # Seg Neutrophils # Man 22.4 H Lymphocytes # (Manual) 0.5 L Monocytes # (Manual) 2.0 H Eosinophils # (Manual) PT INR D-Dimer ABG pH POC ABG pCO2 POC ABG pO2 ABG pO2 ABG HCO3 37.9 H ABG O2 Saturation ABG Base Excess 11.4 H ABG Hemoglobin 10.6 L ABG Oxyhemoglobin ABG Potassium ABG Glucose Oxyhemoglobin 94.7 L Carboxyhemoglobin Sodium Potassium Chloride Carbon Dioxide BUN Creatinine Glucose POC Glucose 135 H Ferritin Total Bilirubin Alkaline Phosphatase Lactate Dehydrogenase Troponin T C-Reactive Protein Total Protein Albumin Prealbumin LDL Cholesterol Direct Arterial Blood Glucose Arterial Blood Ionized Calcium Urine WBC (Auto) 03/06/20 03/06/20 03/06/20 06:08 12:19 19:10 WBC RBC Hgb Hct MCV MCH RDW Plt Count Lymph % (Auto) [place] # (Auto) Seg Neutrophils % Seg Neuts % (Manual) Lymphocytes % (Manual) Monocytes % (Manual) Seg Neutrophils # Seg Neutrophils # Man Lymphocytes # (Manual) Monocytes # (Manual) Eosinophils # (Manual) PT INR D-Dimer ABG pH POC ABG pCO2 POC ABG pO2 ABG pO2 ABG HCO3 ABG O2 Saturation ABG Base Excess ABG Hemoglobin ABG Oxyhemoglobin ABG Potassium ABG Glucose Oxyhemoglobin Carboxyhemoglobin Sodium 150 H D Potassium Chloride Carbon Dioxide 39 H D BUN 23 H Creatinine < 0.2 L Glucose 144 H POC Glucose 169 H 152 H Ferritin Total Bilirubin Alkaline Phosphatase Lactate Dehydrogenase Troponin T C-Reactive Protein Total Protein Albumin 3.3 L Prealbumin LDL Cholesterol Direct Arterial Blood Glucose Arterial Blood Ionized Calcium Urine WBC (Auto) 03/06/20 03/07/20 03/07/20 23:58 04:25 04:25 WBC 22.1 H RBC Hgb 10.9 L Hct 32.9 L MCV MCH RDW 15.5 H Plt Count 739 H Lymph % (Auto) 7.8 L [place] # (Auto) 1.3 H Seg Neutrophils % 85.5 H Seg Neuts % (Manual) Lymphocytes % (Manual) Monocytes % (Manual) Seg Neutrophils # 18.9 H Seg Neutrophils # Man Lymphocytes # (Manual) Monocytes # (Manual) Eosinophils # (Manual) PT INR D-Dimer ABG pH POC ABG pCO2 POC ABG pO2 ABG pO2 ABG HCO3 ABG O2 Saturation ABG Base Excess ABG Hemoglobin ABG Oxyhemoglobin ABG Potassium ABG Glucose Oxyhemoglobin Carboxyhemoglobin Sodium 146 H Potassium Chloride Carbon Dioxide 37 H BUN Creatinine < 0.2 L Glucose 118 H POC Glucose 111 H Ferritin Total Bilirubin Alkaline Phosphatase Lactate Dehydrogenase Troponin T C-Reactive Protein Total Protein Albumin 3.7 L Prealbumin LDL Cholesterol Direct Arterial Blood Glucose Arterial Blood Ionized Calcium Urine WBC (Auto) 03/07/20 03/07/20 03/07/20 05:20 17:45 23:32 WBC RBC Hgb Hct MCV MCH RDW Plt Count Lymph % (Auto) [place] # (Auto) Seg Neutrophils % Seg Neuts % (Manual) Lymphocytes % (Manual) Monocytes % (Manual) Seg Neutrophils # Seg Neutrophils # Man Lymphocytes # (Manual) Monocytes # (Manual) Eosinophils # (Manual) PT INR D-Dimer ABG pH POC ABG pCO2 POC ABG pO2 ABG pO2 ABG HCO3 ABG O2 Saturation ABG Base Excess ABG Hemoglobin ABG Oxyhemoglobin ABG Potassium ABG Glucose Oxyhemoglobin Carboxyhemoglobin Sodium Potassium Chloride Carbon Dioxide BUN Creatinine Glucose POC Glucose 113 H 124 H 210 H Ferritin Total Bilirubin Alkaline Phosphatase Lactate Dehydrogenase Troponin T C-Reactive Protein Total Protein Albumin Prealbumin LDL Cholesterol Direct Arterial Blood Glucose Arterial Blood Ionized Calcium Urine WBC (Auto) 03/08/20 03/08/20 03/08/20 05:35 06:43 06:43 WBC 28.9 H RBC 3.53 L Hgb 9.7 L Hct 30.3 L MCV MCH RDW 15.6 H Plt Count 578 H Lymph % (Auto) [place] # (Auto) Seg Neutrophils % Seg Neuts % (Manual) 93.0 H Lymphocytes % (Manual) 4.0 L Monocytes % (Manual) Seg Neutrophils # Seg Neutrophils # Man 26.9 H Lymphocytes # (Manual) Monocytes # (Manual) Eosinophils # (Manual) PT INR D-Dimer ABG pH POC ABG pCO2 POC ABG pO2 ABG pO2 ABG HCO3 ABG O2 Saturation ABG Base Excess ABG Hemoglobin ABG Oxyhemoglobin ABG Potassium ABG Glucose Oxyhemoglobin Carboxyhemoglobin Sodium 146 H Potassium Chloride Carbon Dioxide 35 H BUN 34 H Creatinine 0.3 L D Glucose 125 H POC Glucose 147 H Ferritin Total Bilirubin Alkaline Phosphatase Lactate Dehydrogenase Troponin T C-Reactive Protein Total Protein 5.9 L Albumin 3.2 L Prealbumin LDL Cholesterol Direct Arterial Blood Glucose Arterial Blood Ionized Calcium Urine WBC (Auto) 03/08/20 03/08/20 03/08/20 08:57 11:14 12:34 WBC RBC Hgb Hct MCV MCH RDW Plt Count Lymph % (Auto) [place] # (Auto) Seg Neutrophils % Seg Neuts % (Manual) Lymphocytes % (Manual) Monocytes % (Manual) Seg Neutrophils # Seg Neutrophils # Man Lymphocytes # (Manual) Monocytes # (Manual) Eosinophils # (Manual) PT INR D-Dimer ABG pH POC ABG pCO2 63.1 H POC ABG pO2 ABG pO2 ABG HCO3 ABG O2 Saturation ABG Base Excess ABG Hemoglobin 10.9 L ABG Oxyhemoglobin ABG Potassium ABG Glucose 176 H Oxyhemoglobin Carboxyhemoglobin Sodium Potassium Chloride Carbon Dioxide BUN Creatinine Glucose POC Glucose 171 H Ferritin Total Bilirubin Alkaline Phosphatase Lactate Dehydrogenase Troponin T C-Reactive Protein Total Protein Albumin Prealbumin LDL Cholesterol Direct Arterial Blood Glucose 176 H Arterial Blood Ionized Calcium 4.5 L Urine WBC (Auto) 10.0 H 03/08/20 03/08/20 03/09/20 18:02 23:43 05:49 WBC RBC Hgb Hct MCV MCH RDW Plt Count Lymph % (Auto) [place] # (Auto) Seg Neutrophils % Seg Neuts % (Manual) Lymphocytes % (Manual) Monocytes % (Manual) Seg Neutrophils # Seg Neutrophils # Man Lymphocytes # (Manual) Monocytes # (Manual) Eosinophils # (Manual) PT INR D-Dimer ABG pH POC ABG pCO2 POC ABG pO2 ABG pO2 ABG HCO3 ABG O2 Saturation ABG Base Excess ABG Hemoglobin ABG Oxyhemoglobin ABG Potassium ABG Glucose Oxyhemoglobin Carboxyhemoglobin Sodium Potassium Chloride Carbon Dioxide BUN Creatinine Glucose POC Glucose 157 H 134 H 163 H Ferritin Total Bilirubin Alkaline Phosphatase Lactate Dehydrogenase Troponin T C-Reactive Protein Total Protein Albumin Prealbumin LDL Cholesterol Direct Arterial Blood Glucose Arterial Blood Ionized Calcium Urine WBC (Auto) 03/09/20 03/09/20 03/09/20 08:35 08:35 12:11 WBC 23.4 H RBC 3.36 L Hgb 9.3 L Hct 28.8 L MCV MCH RDW 15.9 H Plt Count 521 H Lymph % (Auto) [place] # (Auto) Seg Neutrophils % Seg Neuts % (Manual) 87.0 H Lymphocytes % (Manual) 4.0 L Monocytes % (Manual) 9.0 H Seg Neutrophils # Seg Neutrophils # Man 20.4 H Lymphocytes # (Manual) 0.9 L Monocytes # (Manual) 2.1 H Eosinophils # (Manual) PT INR D-Dimer ABG pH POC ABG pCO2 POC ABG pO2 ABG pO2 ABG HCO3 ABG O2 Saturation ABG Base Excess ABG Hemoglobin ABG Oxyhemoglobin ABG Potassium ABG Glucose Oxyhemoglobin Carboxyhemoglobin Sodium 147 H Potassium Chloride Carbon Dioxide 37 H BUN 63 H Creatinine Glucose 154 H POC Glucose 128 H Ferritin Total Bilirubin Alkaline Phosphatase Lactate Dehydrogenase Troponin T C-Reactive Protein Total Protein Albumin Prealbumin LDL Cholesterol Direct Arterial Blood Glucose Arterial Blood Ionized Calcium Urine WBC (Auto) CT scan - chest: other (improving basilar consolidation) Allied health notes reviewed: nursing
[2020-03-09] MEDS ORDERED: SODIUM CHLORIDE 0.9% 500 ML 500 ML IV ONE (14:30)
--- NOTE | 2020-03-09 15:33 | Cat Scan Report ---
CT ABDOMEN AND PELVIS WITH CONTRAST HISTORY: MAIN COMPARISON: CTA chest 02/24/2020 TECHNIQUE: Axial CT images were obtained through the abdomen and pelvis after 100 cc of Omnipaque 300 intravenously. Sagittal and coronal reformatted images. All CT scans at this location are performed using CT dose reduction for ALARA by means of automated exposure control. FINDINGS: CT ABDOMEN: Lung Bases: Bibasilar infiltrates are again seen although they have decreased by 50% since the previo us CTA chest. Heart size is normal. Liver: No significant abnormality. Biliary: No significant abnormality. Spleen: No significant abnormality. Unenlarged. Pancreas: No significant abnormality. Adrenals: No significant abnormality. Kidneys: Mild bilateral hydronephrosis is present. 1.5 cm right renal cyst is unchanged. No nephrolit hiasis. The bladder is markedly distended suggesting bladder outlet obstruction. Lymphatics: No lymphadenopathy. Vasculature: No significant abnormality. Bowel/Peritoneum: No significant abnormality. No free air. No free fluid. The appendix is not identif ied. CT PELVIS: : Markedly distended bladder. The prostate gland is mildly enlarged measuring 5.5 cm in diameter. Osseous Structures: Mild osteopenia. No acute osseous findings. Additional Findings: None IMPRESSION: Bibasilar infiltrates as described. Markedly distended bladder and mild bilateral hydronephrosis is identified. Correlate for bladder out let obstruction. Mild prostatic enlargement. Signer Name: Mynor Lakhani Jr, MD Signed: 03/09/2020 3:28 PM Workstation Name: [id number]
[2020-03-09] MEDS ORDERED: SODIUM CHLORIDE 0.9% 1000 ML 1,000 ML IV SCH (17:00)
[2020-03-09] MEDS ORDERED: NORepinephrine/NS 4 MG-250 ML 4 MG/250 ML BAG IV SCH (18:00)
[2020-03-09] MEDS: TAMSULOSIN 0.4 MG CAP PO SCH (18:16)
--- NOTE | 2020-03-09 19:27 | Consultation ---
History of Present Illness - Reason for Consult Consult date: 03/09/20 - History of Present Illness new to our service covid 19---negative 59-year-old male patient with significant past medical history of ALS, presented to ED with worsening shortness of breath since the morning [employer] TE[employer]. Patient was on a trilogy machine for breathing 18/11. EMS arrived, patient had O2 sats in the 80s. EMS attempted to place patient on their CPAP machine, however patient did not tolerate. Patient was admitted to the ICU with diagnosis of acute hypoxic respiratory failure and placed on BiPAP. Patient ini tially tolerated but later deteriorated with respiratory status. CTA chest showed no PE but significant for bilateral pneumonia. Doppler ultrasound also negative for DVT. COVID-19 test ordered. Due to persistent hypoxia, patient was intubated on 02/26/2020 at 1500. Patient now on mechanical ventilation in the ICU. 02/26/2020. Blood cultures are negative x48 hours and Covid testing negative as well. Continue antibiotics per ID recommendations for community-acquired bilateral pneumonia. Cardiology consultation for elevated troponin. Check echocardiogram. 02/27/2020. Events of yesterday noted with asystole following V. fib arrest. Patient currently on AC mode rate 20, tidal volume 400, FiO2 50% and a PEEP of 6. Follow-up echocardiogram for elevated troponin. Cardiology suspects NSTEMI Type 2 in the setting of acute resp failure. Chest CTA and BLE Dopplers neg. we will discontinue Decadron given the Covid PCR is negative. 02/28/2020. I spoke with the sister Felisa Eli who is the power of stitcher feeder regarding advanced directives and she instructed me that she would like to c ontinue with aggressive care at this time. I informed her of the guarded prognosis and high mortality/morbidity and she voiced understanding. Patient currently with AC mode ventilation rate 18, tidal volume 400, FiO2 40% and a PEEP of 6. Continue antibiotics for pneumonia. ID previously consulted. Also consult neurology with regards to ALS. CTAP (03-09-20)-- distended bladder nurse states 2 attempts to straight cath unsuccessful abd--distended condom cath wire drake 16F A/P retention continue drake as needed Past History Past Medical History: other (ALS, chronic respiratory failure (on Trilogy)) Past Surgical History: No surgical history Social history: smoking (former), alcohol abuse (~ 2 drinks/day) Family history: denies: no significant family history Medications and Allergies Allergies Allergy/AdvReac Type Severity Reaction Status Date / Time buprenorphine [From Butrans] Allergy Unknown Verified 02/24/20 08:37 fentanyl Allergy Unknown Verified 02/24/20 08:37 oxycodone [From OxyContin] Allergy Unknown Verified 02/24/20 08:37 Home Medications Medication Instructions Recorded Confirmed Last Taken Type Baclofen 10 mg PO BID 02/24/20 02/24/20 Unknown History Doxazosin 4 mg PO BID 02/24/20 02/24/20 Unknown History Etodolac ER 500 mg PO BID 02/24/20 02/24/20 Unknown History Lyrica 150 mg PO BID 02/24/20 02/24/20 Unknown History Valium 5 mg PO DAILY 02/24/20 02/24/20 Unknown History Active Meds: Active Medications Acetaminophen (Tylenol) 650 mg PO Q4H PRN PRN Reason: Pain, Mild (1-3) Last Admin: 03/08/20 00:10 Dose: 650 mg Documented by: Albuterol (Proventil) 2.5 mg IH Q4HRT PRN PRN Reason: Shortness Of Breath Lipase/Protease/Amylase (Pancreaze Dr 10,500 Unit) 1 each FEEDTUBE PRN PRN PRN Reason: For Clogged Feeding Tube Enoxaparin Sodium (Enoxaparin) 40 mg SUB-Q QDAY@2200 ALISA; Protocol Last Admin: 03/08/20 21:50 Dose: 40 mg Documented by: Glycopyrrolate (Glycopyrrolate) 2 mg PO TID ALISA Last Admin: 03/09/20 14:11 Dose: 2 mg Documented by: Levofloxacin/Dextrose (Levaquin 750mg/150ml) 750 mg in 150 mls @ 100 mls/hr IV Q24H ALISA; Protocol Stop: 03/12/20 18:29 Last Admin: 03/09/20 16:07 Dose: 100 mls/hr Documented by: Sodium Chloride (Nacl 0.9% 1000 Ml) 1,000 mls @ 100 mls/hr IV DIRECT ALISA Stop: 03/10/20 02:59 Last Admin: 03/09/20 17:26 Dose: 100 mls/hr Documented by: Norepinephrine (Levophed Drip 4 Mg/Ns 250 Ml) 4 mg in 250 mls @ 7.5 mls/hr IV TITR ALISA; Protocol Lansoprazole (Prevacid Solutab) 30 mg FEEDTUBE QDAY [facility] Last Admin: 03/09/20 08:59 Dose: 30 mg Documented by: Metoprolol Tartrate (Metoprolol) 12.5 mg PO BID [facility] Last Admin: 03/09/20 08:59 Dose: 12.5 mg Documented by: Morphine Sulfate (Morphine) 2 mg IV Q4H PRN PRN Reason: Pain, Moderate (4-6) Last Admin: 03/09/20 11:18 Dose: 2 mg Documented by: Scopolamine (Transderm-Scop) 1 each TD Q3D [facility] Last Admin: 03/09/20 09:00 Dose: 1 each Documented by: Simple Syrup (Simple Syrup) 15 ml FEEDTUBE PRN PRN PRN Reason: Hypoglycemia Simple Syrup (Simple Syrup) 30 ml FEEDTUBE PRN PRN PRN Reason: Hypoglycemia Sodium Bicarbonate (Sodium Bicarbonate) 325 mg FEEDTUBE PRN PRN PRN Reason: For Clogged Feeding Tube Tamsulosin HCl (Flomax) 0.4 mg PO QDAY [facility] Last Admin: 03/09/20 18:16 Dose: 0.4 mg Documented by: Exam - Constitutional Vitals: Temp Pulse Resp BP Pulse Ox 98.2 F 102 H 14 108/74 98 03/09/20 16:00 03/09/20 18:00 03/09/20 18:00 03/09/20 18:00 03/09/20 18:00 Results - Labs CBC & Chem 7: 03/09/20 08:35 03/09/20 08:35 Labs: Abnormal lab results 03/08/20 03/08/20 03/09/20 Range/Units 18:02 23:43 05:49 WBC (4.5-11.0) K/mm3 RBC (3.65-5.03) M/mm3 Hgb (11.8-15.2) gm/dl Hct (35.5-45.6) % RDW (13.2-15.2) % Plt Count (140-440) K/mm3 Seg Neuts % (Manual) (40.0-70.0) % Lymphocytes % (Manual) (13.4-35.0) % Monocytes % (Manual) (0.0-7.3) % Seg Neutrophils # Man (1.8-7.7) K/mm3 Lymphocytes # (Manual) (1.2-5.4) K/mm3 Monocytes # (Manual) (0.0-0.8) K/mm3 Sodium (137-145) mmol/L Carbon Dioxide (22-30) mmol/L BUN (9-20) mg/dL Glucose (75-100) mg/dL POC Glucose 157 H 134 H 163 H (70-105) mg/dL 03/09/20 03/09/20 03/09/20 Range/Units 08:35 08:35 12:11 WBC 23.4 H (4.5-11.0) K/mm3 RBC 3.36 L (3.65-5.03) M/mm3 Hgb 9.3 L (11.8-15.2) gm/dl Hct 28.8 L (35.5-45.6) % RDW 15.9 H (13.2-15.2) % Plt Count 521 H (140-440) K/mm3 Seg Neuts % (Manual) 87.0 H (40.0-70.0) % Lymphocytes % (Manual) 4.0 L (13.4-35.0) % Monocytes % (Manual) 9.0 H (0.0-7.3) % Seg Neutrophils # Man 20.4 H (1.8-7.7) K/mm3 Lymphocytes # (Manual) 0.9 L (1.2-5.4) K/mm3 Monocytes # (Manual) 2.1 H (0.0-0.8) K/mm3 Sodium 147 H (137-145) mmol/L Carbon Dioxide 37 H (22-30) mmol/L BUN 63 H (9-20) mg/dL Glucose 154 H (75-100) mg/dL POC Glucose 128 H (70-105) mg/dL 03/09/20 Range/Units 17:51 WBC (4.5-11.0) K/mm3 RBC (3.65-5.03) M/mm3 Hgb (11.8-15.2) gm/dl Hct (35.5-45.6) % RDW (13.2-15.2) % Plt Count (140-440) K/mm3 Seg Neuts % (Manual) (40.0-70.0) % Lymphocytes % (Manual) (13.4-35.0) % Monocytes % (Manual) (0.0-7.3) % Seg Neutrophils # Man (1.8-7.7) K/mm3 Lymphocytes # (Manual) (1.2-5.4) K/mm3 Monocytes # (Manual) (0.0-0.8) K/mm3 Sodium (137-145) mmol/L Carbon Dioxide (22-30) mmol/L BUN (9-20) mg/dL Glucose (75-100) mg/dL POC Glucose 127 H (70-105) mg/dL
--- NOTE | 2020-03-09 22:15 | Progress Note ---
Assessment and Plan --Acute hypoxic hypercapnic respiratory failure; Intubated on mechanical ventilation. Etiology secondary to sepsis, ALS, multifocal pneumonia (Covid negative). S/p trach placement today --ALS; Chronic Continue to provide supportive care --Elevated D-dimers; CTA chest, lower extremity venous Doppler both are negative Lovenox for DVT prophylaxis --Bilateral pneumonia; probably community-acquired Continue cefepime and vancomycin ID recommendations appreciated --Sepsis secondary to pneumonia Continue cefepime and vancomycin --Elevated troponin; Serial cardiac enzymes, serial EKGs Echocardiogram, cardiology consult if needed --Hypernatremia Trend sodium Free water via feeding tube --Abdominal distention CT abdomen showed bladder outlet obstruction, urology consulted --Hypotension possibly from septic shock and bladder outlet obstruction We will give 500 mils normal saline bolus, if no improvement will start on pressor support Continue to monitor vitals --DVT prophylaxis; Lovenox The high probability of a clinically significant, sudden or life threatening deterioration of the [cardiac, renal and respiratory] system(s) required my full and direct attention, intervention and personal management. The aggregate critical care time was [34] minutes. 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 Patient was on a trilogy machine for breathing /. EMS arrived, patient had O2 sats in the 80s. EMS attempted to place patient on their CPAP machine, however patient did not tolerate. Patient was admitted to the ICU with diagnosis of acute hypoxic respiratory failure and placed on BiPAP. Patient initially tolerated but later deteriorated with respiratory status. CTA chest showed no PE but significant for bilateral pneumonia. Doppler ultrasound also negative for DVT. COVID-19 test ordered. Due to persistent hypoxia, patient was intubated on 02/26/2020 at 1500. Patient now on mechanical ventilation in the ICU s/p trach placement today. Daily course: 02/26/2020. Blood cultures are negative x48 hours and Covid testing negative as well. Continue antibiotics per ID recommendations for community-acquired bilateral pneumonia. Cardiology consultation for elevated troponin. Check echocardiogram. 02/27/2020. Events of yesterday noted with asystole following V. fib arrest. Patient currently on AC mode rate 20, tidal volume 400, FiO2 50% and a PEEP of 6. Follow-up echocardiogram for elevated troponin. Cardiology suspects NSTEMI Type 2 in the setting of acute resp failure. Chest CTA and BLE Dopplers neg. we will discontinue Decadron given the Covid PCR is negative. 02/28/2020. Spoke with the sister Felisa Eli who is the power of trade mark attorney regarding advanced directives and she instructed me that she would like to continue with aggressive care at this time. I informed her of the guarded prognosis and high mortality/morbidity and she voiced understanding. Patient currently with AC mode ventilation rate 18, tidal volume 400, FiO2 40% and a PEEP of 6. Continue antibiotics for pneumonia. ID previously consulted. Also consult neurology with regards to ALS. 02/29/2020; patient is intubated and on CPAP patient is alert and oriented. Patient has ALS. Dr. Álvarez spoke with his sister and she wants aggressive care. Continue antibiotics for pneumonia. Neurology consulted for ALS. Prognosis poor 03/01/2020; patient is intubated and on CPAP, patient is alert and oriented. I spoke with his 2 sisters about the management plan. 03/02/2020; patient is intubated and on CPAP. Patient was alert and oriented. I spoke with Dr. mohr and he thinks patient may need mechanical ventilation, likely his disease progressed. Dr. Flowers did debridement this morning. 03/03/2020; patient is intubated and on CPAP, patient was on trilogy and BiPAP at home. Patient has ALS. on spontaneous breathing trial. Patient is alert and oriented but quadriplegic. Patient has severe bilateral pneumonia and is on cefepime and Vanco, ID is following. Patient has sacral decubitus ulcer and debridement was done by Dr. Flowers and there is no osteomyelitis. 03/05. Patient still on broad-spectrum antibiotics. Status post sacral decubitus ulcer debridements-no osteomyelitis. Patient is on AC 25/400/30% PEEP 5. No blood gas results today. 03/06. Plan for tracheostomy by surgery. Still remains intubated. Labs reviewed-sodium 150. Started on free water 200 every 8hr. trend sodium. 03/07: s/p trach placement today, patient placed back on mechanical ventilation with trach. Plan to resume tube feeding with NG tube. Continue to monitor vitals, monitor BMP. 03/08: Patient noted to have distended abdomen with low urinary output. Obtain bladder scan rule out urine retention, UA and urine culture, continue to follow clinically. 03/09: Patient noted to have low blood pressure with SBP as low as 70s. Ordered for 500 mils normal saline bolus. CT abdomen showed bladder outlet obstruction, urology consulted Subjective Date of service: 03/09/20 Principal diagnosis: Ac on Ch Hypercapnic & hypoxemic Resp Failure; Severe Sepsis; Jamar PNA; ALS Interval history: Patient seen and examined Remains on mechanical ventilation with trach tube Discussed with RN at the bedside Noted to have distended abdomen with low urine output Ordered for CT abdomen pelvis Vitals reviewed -critically hypertensive Objective - Exam Narrative Exam: GENERAL: Awake. Intubated with trach tube HEAD: No signs of head trauma. EYES: Pupils are equal. Extraocular motions intact. EARS: Hearing grossly intact. MOUTH: Oropharynx is normal. NECK: No adenopathy, no JVD. CHEST: Coarse breath sounds bilaterally CARDIAC: Regular rate and rhythm. S1 and S2, without murmurs, gallops, or rubs. VASCULAR: No Edema. Peripheral pulses normal and equal in all extremities. ABDOMEN: Soft, non tender and distended. Bowel Sounds normal. NEUROLOGIC EXAM: Awake SKIN: No obvious lesions - Constitutional Vitals: Vital Signs - 12hr 03/09/20 03/09/20 03/09/20 10:30 11:00 11:18 Temperature Pulse Rate 99 H 93 H Pulse Rate [ From Monitor] Respiratory 11 L 28 H 12 Rate Blood Pressure 118/82 122/83 O2 Sat by Pulse 98 98 Oximetry O2 Sat by Pulse Oximetry [ Assessment] 03/09/20 03/09/20 03/09/20 11:30 11:38 12:00 Temperature Pulse Rate 95 H 94 H 88 Pulse Rate [ 90 From Monitor] Respiratory 24 12 22 Rate Blood Pressure 118/80 122/83 114/79 O2 Sat by Pulse 98 98 97 Oximetry O2 Sat by Pulse Oximetry [ Assessment] 03/09/20 03/09/20 03/09/20 12:30 13:00 13:31 Temperature Pulse Rate 104 H 102 H Pulse Rate [ From Monitor] Respiratory 20 19 Rate Blood Pressure 120/79 113/77 113/77 O2 Sat by Pulse 98 98 Oximetry O2 Sat by Pulse Oximetry [ Assessment] 03/09/20 03/09/20 03/09/20 14:00 14:30 15:00 Temperature Pulse Rate 107 H 101 H 94 H Pulse Rate [ From Monitor] Respiratory 12 12 12 Rate Blood Pressure 83/53 93/60 99/70 O2 Sat by Pulse 98 98 98 Oximetry O2 Sat by Pulse Oximetry [ Assessment] 03/09/20 03/09/20 03/09/20 15:30 16:00 16:10 Temperature 98.2 F Pulse Rate 97 H 97 H 97 H Pulse Rate [ 102 H From Monitor] Respiratory 13 12 Rate Blood Pressure 98/70 94/65 99/70 O2 Sat by Pulse 98 99 99 Oximetry O2 Sat by Pulse Oximetry [ Assessment] 03/09/20 03/09/20 03/09/20 16:30 16:36 17:00 Temperature Pulse Rate 98 H 101 H Pulse Rate [ From Monitor] Respiratory 12 12 Rate Blood Pressure 86/59 77/50 O2 Sat by Pulse Oximetry O2 Sat by Pulse 99 Oximetry [ Assessment] 03/09/20 03/09/20 03/09/20 17:30 18:00 20:00 Temperature 97.3 F L Pulse Rate 104 H 102 H Pulse Rate [ From Monitor] Respiratory 14 14 Rate Blood Pressure 99/66 108/74 O2 Sat by Pulse 98 98 Oximetry O2 Sat by Pulse Oximetry [ Assessment] 03/09/20 20:22 Temperature Pulse Rate 111 H Pulse Rate [ From Monitor] Respiratory Rate Blood Pressure 110/73 O2 Sat by Pulse 97 Oximetry O2 Sat by Pulse Oximetry [ Assessment] - Labs CBC & Chem 7: 03/10/20 06:14 03/10/20 06:14 Labs: Abnormal lab results 03/08/20 03/09/20 03/09/20 Range/Units 23:43 05:49 08:35 WBC 23.4 H (4.5-11.0) K/mm3 RBC 3.36 L (3.65-5.03) M/mm3 Hgb 9.3 L (11.8-15.2) gm/dl Hct 28.8 L (35.5-45.6) % RDW 15.9 H (13.2-15.2) % Plt Count 521 H (140-440) K/mm3 Seg Neuts % (Manual) 87.0 H (40.0-70.0) % Lymphocytes % (Manual) 4.0 L (13.4-35.0) % Monocytes % (Manual) 9.0 H (0.0-7.3) % Seg Neutrophils # Man 20.4 H (1.8-7.7) K/mm3 Lymphocytes # (Manual) 0.9 L (1.2-5.4) K/mm3 Monocytes # (Manual) 2.1 H (0.0-0.8) K/mm3 Sodium (137-145) mmol/L Carbon Dioxide (22-30) mmol/L BUN (9-20) mg/dL Glucose (75-100) mg/dL POC Glucose 134 H 163 H (70-105) mg/dL 03/09/20 03/09/20 03/09/20 Range/Units 08:35 12:11 17:51 WBC (4.5-11.0) K/mm3 RBC (3.65-5.03) M/mm3 Hgb (11.8-15.2) gm/dl Hct (35.5-45.6) % RDW (13.2-15.2) % Plt Count (140-440) K/mm3 Seg Neuts % (Manual) (40.0-70.0) % Lymphocytes % (Manual) (13.4-35.0) % Monocytes % (Manual) (0.0-7.3) % Seg Neutrophils # Man (1.8-7.7) K/mm3 Lymphocytes # (Manual) (1.2-5.4) K/mm3 Monocytes # (Manual) (0.0-0.8) K/mm3 Sodium 147 H (137-145) mmol/L Carbon Dioxide 37 H (22-30) mmol/L BUN 63 H (9-20) mg/dL Glucose 154 H (75-100) mg/dL POC Glucose 128 H 127 H (70-105) mg/dL HEART Score - HEART Score Troponin: Troponin T 0.034 ng/mL (0.00-0.029) H D 02/24/20 19:35
[2020-03-09] MEDS: ENOXAPARIN 40 MG/0.4 ML INJ SUB-Q SCH (23:07)
[2020-03-10] MEDS ORDERED: LIDOCAINE 2% UROJECT 10 ML JELLY ONE (00:24)
[2020-03-10 06:52] LABS: Hematocrit 29.5 % (35.5-45.6); Hemoglobin 9.5 gm/dl (11.8-15.2); Mean Corpuscular HGB Conc 32 % (32-34); Mean Corpuscular Volume 86 fl (84-94); Platelet Count 494 K/mm3 (140-440); Red Blood Count 3.45 M/mm3 (3.65-5.03); Red Cell Distribution Width 16.1 % (13.2-15.2)
[2020-03-10 06:55] LABS: Blood Urea Nitrogen 34 mg/dL (9-20); Calcium 8.7 mg/dL (8.4-10.2); Hemolysis Index 2
[2020-03-10 06:58] LABS: BUN/Creatinine Ratio 170
[2020-03-10 08:16] LABS: Anisocytosis Few; Basophils % (Manual) 0 % (0.0-1.8); Eosinophils % (Manual) 0 % (0.0-4.3); Total Cells Counted 100
[2020-03-10 08:17] LABS: Hypochromasia Few; Platelet Estimate Consistent w Auto
[2020-03-10] MEDS: METOPROLOL TARTRATE 25 MG TAB PO SCH ×2 (09:13→20:50)
[2020-03-10] MEDS: GLYCOPYRROLATE 2 MG TAB PO SCH ×3 (09:13→20:36)
[2020-03-10] MEDS: LANSOPRAZOLE 30 MG SOLUTAB FEEDTUBE SCH (09:14)
[2020-03-10] MEDS: TAMSULOSIN 0.4 MG CAP PO SCH (09:14)
--- NOTE | 2020-03-10 09:29 | Progress Note ---
Assessment and Plan Cultures: Blood culture no growth today SARS CoV2 PCR negative Sputum culture 03/03/2020 Stenotrophomonas Blood culture 03/03/2020 no growth today Blood culture 03/07/2020 no growth today Assessment: 59 years old female with history of ALS with chronic respiratory failure on home trilogy BiPAP, admitted on 02/24/2020 due to worsening shortness of breath for 24 hours: #Severe sepsis: likely due to bilateral pneumonia +/- left gluteal necrotic pressure ulcer. Fever resolved, leukocytosis improving #Severe bilateral pneumonia: Likely community-acquired pneumonia. Procalcitonin elevated-1.13. CTA shows no PE but multifocal pneumonia with predominance left lower lobe. No DVT on US. Elevated D-dimer -1311. SARS-CoV-2 PCR negative. Sputum culture +Stenotrophomonas. CRP 26-->4. Prcal 1.1-->1.6. Repeat CXR near complete atelectasis resolved. Completed cefepime and vancomycin on 03/06/2020 #Left gluteal necrotic pressure ulcer: S/p debridement, not infected per wound care. #Acute on chronic mixed respiratory failure: Intubated, re intubated overnight. #ALS #Rule out urinary retention: straight cath no urine obtained, UA 03/08 w/o evidence of UTI. Evaluated by urology, Reardon placed. Recommendations: -Monitor leukocytosis after Reardon catheter in place -Continue Levaquin 750 mg IV/PO daily for total 7 days for Stenotrophomonas pneumonia- day 5 of 7 -procalcitonin improving from 1.6-->0.16 -Monitor fever and leukocytosis Will follow Diana Maravilla MD Infectious Diseases [facility] ([facility] M [phone] O [phone] Subjective Date of service: 03/10/20 Principal diagnosis: Ac on Ch Hypercapnic & hypoxemic Resp Failure; Severe Sepsis; Jamar PNA; ALS Interval history: No fever for 24 hours, remains on the ventilator via trach, failed T-piece this morning, remains tachycardic on monitor Objective - Exam Narrative Exam: General appearance: Sedated on the ventilator Eyes: anicteric sclerae, moist conjunctivae; no lid-lag; PERRLA HENT: Normocephalic, Atraumatic; normal external ears, nares open, oropharynx limited Neck: Trach in place Lungs: Bilateral rhonchi CV: Tachycardic Abdomen: Soft, bladder distended and tender Extremities: no edema, no cyanosis Skin: No rash. Left buttock wound covered with surgical dressing Psych: no agitated Neuro: Alert on the ventilator - Constitutional Vitals: Vital Signs Temp Pulse Resp BP Pulse Ox 98.7 F 114 H 11 L 126/80 97 03/10/20 03:58 03/10/20 09:13 03/10/20 08:19 03/10/20 09:13 03/10/20 08:19 Temperature -Last 24 Hours Temperature 98.7 F Temperature 98.2 F Temperature 97.3 F Temperature 98.2 F - Labs CBC & Chem 7: 03/10/20 06:14 03/10/20 06:14 Labs: Abnormal lab results 03/09/20 03/09/20 03/09/20 Range/Units 08:35 08:35 12:11 WBC 23.4 H (4.5-11.0) K/mm3 RBC 3.36 L (3.65-5.03) M/mm3 Hgb 9.3 L (11.8-15.2) gm/dl Hct 28.8 L (35.5-45.6) % RDW 15.9 H (13.2-15.2) % Plt Count 521 H (140-440) K/mm3 Seg Neuts % (Manual) 87.0 H (40.0-70.0) % Lymphocytes % (Manual) 4.0 L (13.4-35.0) % Monocytes % (Manual) 9.0 H (0.0-7.3) % Seg Neutrophils # Man 20.4 H (1.8-7.7) K/mm3 Lymphocytes # (Manual) 0.9 L (1.2-5.4) K/mm3 Monocytes # (Manual) 2.1 H (0.0-0.8) K/mm3 Sodium 147 H (137-145) mmol/L Carbon Dioxide 37 H (22-30) mmol/L BUN 63 H (9-20) mg/dL Creatinine (0.8-1.3) mg/dL Glucose 154 H (75-100) mg/dL POC Glucose 128 H (70-105) mg/dL 03/09/20 03/10/20 03/10/20 Range/Units 17:51 00:25 05:41 WBC (4.5-11.0) K/mm3 RBC (3.65-5.03) M/mm3 Hgb (11.8-15.2) gm/dl Hct (35.5-45.6) % RDW (13.2-15.2) % Plt Count (140-440) K/mm3 Seg Neuts % (Manual) (40.0-70.0) % Lymphocytes % (Manual) (13.4-35.0) % Monocytes % (Manual) (0.0-7.3) % Seg Neutrophils # Man (1.8-7.7) K/mm3 Lymphocytes # (Manual) (1.2-5.4) K/mm3 Monocytes # (Manual) (0.0-0.8) K/mm3 Sodium (137-145) mmol/L Carbon Dioxide (22-30) mmol/L BUN (9-20) mg/dL Creatinine (0.8-1.3) mg/dL Glucose (75-100) mg/dL POC Glucose 127 H 128 H 153 H (70-105) mg/dL 03/10/20 03/10/20 Range/Units 06:14 06:14 WBC 18.3 H (4.5-11.0) K/mm3 RBC 3.45 L (3.65-5.03) M/mm3 Hgb 9.5 L (11.8-15.2) gm/dl Hct 29.5 L (35.5-45.6) % RDW 16.1 H (13.2-15.2) % Plt Count 494 H (140-440) K/mm3 Seg Neuts % (Manual) 95.0 H (40.0-70.0) % Lymphocytes % (Manual) 1.0 L (13.4-35.0) % Monocytes % (Manual) (0.0-7.3) % Seg Neutrophils # Man 17.4 H (1.8-7.7) K/mm3 Lymphocytes # (Manual) 0.2 L (1.2-5.4) K/mm3 Monocytes # (Manual) (0.0-0.8) K/mm3 Sodium 149 H (137-145) mmol/L Carbon Dioxide 35 H (22-30) mmol/L BUN 34 H (9-20) mg/dL Creatinine 0.2 L D (0.8-1.3) mg/dL Glucose 177 H (75-100) mg/dL POC Glucose (70-105) mg/dL
--- NOTE | 2020-03-10 11:45 | XRay Report ---
ABDOMEN 1 VIEW INDICATION / CLINICAL INFORMATION: ngt placement. COMPARISON: CT abdomen/pelvis dated 03/09/2020. FINDINGS: TUBES / LINES: Esophagogastric tube tip and sidehole project over the left upper quadrant of the abdo men. BOWEL GAS PATTERN: No significant abnormality. FREE AIR / EXTRALUMINAL GAS: None seen. ADDITIONAL FINDINGS: No significant additional findings. IMPRESSION: Esophagogastric tube projects in expected position. Signer Name: Bandar Redman MD Signed: 03/10/2020 11:40 AM Workstation Name: [id number]
--- NOTE | 2020-03-10 15:05 | Progress Note ---
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 Respiratory Failure Severe Sepsis with Shock Bilateral Pneumonia (Possible aspiration) History of ALS on Trilogy Oropharyngeal Dysphagia PUI-COVID Acute toxic metabolic encephalopathy Elevated D-dimer Elevated troponin possibly type 2 ischemia - continue Flomax - resume daytime t-piece trials in am - continue Robinul & scopolamine fro secretion control - continue care as below otherwise; - continue daily SAT and SBT assessment as tolerated - wound care per RN/WCN - continue Scopolamine patch for secretion control - wean supplemental oxygen for target O2 sat's > 92% acutely - bronchodilators with pulmonary hygiene per RT - VAP bundle addressed - continue lung protective strategies - continue bronchodilators with pulmonary hygiene per RT - wean per pulmonary driven protocols otherwise - sedation prn for target RASS 0 to -1 - empiric antiinfectives per ID rec's (Rocephin and Zithromax) - COVID-19 isolation (Airborne & Contact) - empiric Dexamethasone - follow COVID-19 test results - trend inflammatory markers to aid clinical decision making - enteral nutrition at goal rate as tolerated - Aspiration precautions - accuchecks with glycemic control per SSI (While critically ill target blood glucose of 140-180 mg/dL; avoid hypoglycemia) - avoid nephrotoxins, renally dose all medications - avoid benzodiazepine's, reduce the possibility of delirium - prn analgesia per CPOT score - Maintenance of sleep-wake cycle, avoid delirium - aspiration precautions - G.I. & VTE prophylaxis - PT/OT/ROM exercises - mobility protocols for pressure ulcer prophylaxis - Monitor hemodynamics closely - continue other care per attending / other consultants - discharge planning ongoing concurrently .... Re-evaluate in am & prn CONDITION: CRITICAL PROGNOSIS: GUARDED CODE STATUS: FULL CODE The high probability of a clinically significant, sudden or life-threatening deterioration of the [respiratory, cardiovascular & neurologic] system(s) required my full and direct attention, intervention and personal management. The aggregate critical care time was [32] minutes without overlap. Time includes spent on; [x] Data Review and interpretation [x] Patient assessment and monitoring of vital signs [x] Documentation [x] Medication orders and management Subjective Date of service: 03/10/20 Principal diagnosis: Ac on Ch Hypercapnic & hypoxemic Resp Failure; Severe Sepsis; Jamar PNA; ALS Interval history: : Patient is seen today for: Acute on Chronic Hypercapnic & hypoxemic Respiratory Failure; Severe Sepsis with Shock; Bilateral Pneumonia (Possible aspiration); History of ALS on Trilogy; PUI-COVID; Acute toxic metabolic encephalopathy Seen and examined at bedside; 24hour events reviewed; nursing and respiratory care staff consulted; no adverse overnight events reported to me; resting in bed; remains on MVS; seen by urology and drake placed; feels more comfortable and back on SBT tolerating well; No N/V/F/C Objective Vital Signs - 12hr 03/10/20 03/10/20 03/10/20 03:30 03:52 03:53 Temperature Pulse Rate 115 H 116 H Pulse Rate [ 116 H From Monitor] Respiratory 13 16 Rate Blood Pressure 116/80 O2 Sat by Pulse 97 99 Oximetry O2 Sat by Pulse Oximetry [ Assessment] 03/10/20 03/10/20 03/10/20 03:58 04:00 04:30 Temperature 98.7 F Pulse Rate 119 H 111 H Pulse Rate [ From Monitor] Respiratory 15 14 Rate Blood Pressure 120/83 121/87 O2 Sat by Pulse 97 95 Oximetry O2 Sat by Pulse Oximetry [ Assessment] 03/10/20 03/10/20 03/10/20 05:00 05:03 05:17 Temperature Pulse Rate 105 H 103 H Pulse Rate [ From Monitor] Respiratory 13 Rate Blood Pressure 124/77 124/77 O2 Sat by Pulse 96 97 Oximetry O2 Sat by Pulse 97 Oximetry [ Assessment] 03/10/20 03/10/20 03/10/20 05:30 06:00 06:30 Temperature Pulse Rate 104 H 107 H 112 H Pulse Rate [ From Monitor] Respiratory 15 15 15 Rate Blood Pressure 131/82 131/80 126/81 O2 Sat by Pulse 95 96 98 Oximetry O2 Sat by Pulse Oximetry [ Assessment] 03/10/20 03/10/20 03/10/20 07:00 07:30 08:00 Temperature 98.6 F Pulse Rate 102 H 111 H 120 H Pulse Rate [ 122 H From Monitor] Respiratory 12 14 13 Rate Blood Pressure 121/75 128/81 133/86 O2 Sat by Pulse 95 95 96 Oximetry O2 Sat by Pulse Oximetry [ Assessment] 03/10/20 03/10/20 03/10/20 08:19 08:30 09:00 Temperature Pulse Rate 103 H 109 H 121 H Pulse Rate [ From Monitor] Respiratory 11 L 12 18 Rate Blood Pressure 133/86 134/81 126/80 O2 Sat by Pulse 97 95 97 Oximetry O2 Sat by Pulse Oximetry [ Assessment] 03/10/20 03/10/20 03/10/20 09:13 09:30 10:00 Temperature Pulse Rate 114 H 112 H 103 H Pulse Rate [ From Monitor] Respiratory 16 17 Rate Blood Pressure 126/80 134/82 136/85 O2 Sat by Pulse 95 95 Oximetry O2 Sat by Pulse Oximetry [ Assessment] 03/10/20 03/10/20 03/10/20 10:30 11:00 11:30 Temperature Pulse Rate 106 H 100 H 102 H Pulse Rate [ From Monitor] Respiratory 16 12 10 L Rate Blood Pressure 134/81 143/90 145/92 O2 Sat by Pulse 96 96 96 Oximetry O2 Sat by Pulse Oximetry [ Assessment] 03/10/20 03/10/20 11:57 12:00 Temperature 99.4 F Pulse Rate 106 H 109 H Pulse Rate [ 109 H From Monitor] Respiratory 15 12 Rate Blood Pressure 145/92 140/91 O2 Sat by Pulse 98 98 Oximetry O2 Sat by Pulse 97 Oximetry [ Assessment] Constitutional: no acute distress, other (thin middle aged male with mildly increased respiratory effort at rest on MVS) Eyes: non-icteric ENT: oropharynx moist, other (S/P Tracheostomy) Neck: supple, no lymphadenopathy, no JVD Effort: mildly labored Ascultation: Bilateral: diminished breath sounds, rhonchi (and referred upper airway sounds) Percussion: Bilateral: not dull Cardiovascular: regular rate and rhythm, other (S1,S2, no murmurs) Gastrointestinal: normoactive bowel sounds, soft, non-tender, non-distended, other (+ distended but non tender suprapubis) Integumentary: normal, decubitus ulcer (sacral / gluteal) Extremities: no cyanosis, no edema, pulses normal, other (atrophic looking limbs) Neurologic: pupils equal and round, other (motor strength in extremities 1-2/5) Psychiatric: mood appropriate, affect normal CBC and BMP: 03/10/20 06:14 03/10/20 06:14 ABG, PT/INR, D-dimer: ABG ABG pH 7.371 (7.320-7.450) 03/08/20 12:34 POC ABG pCO2 63.1 mmHg (32.0-48.0) H 03/08/20 12:34 ABG pCO2 60.1 mm Hg 03/06/20 04:34 POC ABG pO2 90.5 mmHg (83-108) 03/08/20 12:34 ABG pO2 88.6 mm Hg (80.0-90.0) 03/06/20 04:34 POC ABG HCO3 35.7 03/08/20 12:34 ABG O2 Saturation 97.0 % (95.0-99.0) 03/06/20 04:34 PT/INR, D-dimer PT 15.6 Sec. (12.2-14.9) H 02/24/20 09:19 INR 1.21 (0.87-1.13) H 02/24/20 09:19 D-Dimer 1311.96 ng/mlDDU (0-234) H 02/24/20 09:19 Abnormal lab findings: Abnormal Labs 02/24/20 02/24/20 02/24/20 09:19 09:19 09:19 WBC 20.2 H RBC 5.05 H Hgb Hct MCV MCH RDW 15.3 H Plt Count Lymph % (Auto) [place] # (Auto) Seg Neutrophils % Seg Neuts % (Manual) 86.0 H Lymphocytes % (Manual) 1.0 L Monocytes % (Manual) Seg Neutrophils # Seg Neutrophils # Man 17.4 H Lymphocytes # (Manual) 0.2 L Monocytes # (Manual) Eosinophils # (Manual) PT 15.6 H INR 1.21 H D-Dimer 1311.96 H ABG pH POC ABG pCO2 POC ABG pO2 ABG pO2 ABG HCO3 ABG O2 Saturation ABG Base Excess ABG Hemoglobin ABG Oxyhemoglobin ABG Potassium ABG Glucose Oxyhemoglobin Carboxyhemoglobin Sodium 135 L Potassium 3.2 L Chloride 92.2 L Carbon Dioxide BUN 6 L Creatinine < 0.2 L Glucose 124 H POC Glucose Ferritin Total Bilirubin 2.30 H Alkaline Phosphatase 132 H Lactate Dehydrogenase Troponin T 0.080 H C-Reactive Protein Total Protein Albumin 3.6 L Prealbumin LDL Cholesterol Direct 41 L Arterial Blood Glucose Arterial Blood Ionized Calcium Urine WBC (Auto) 02/24/20 02/24/20 02/24/20 09:19 09:58 10:01 WBC RBC Hgb Hct MCV MCH RDW Plt Count Lymph % (Auto) [place] # (Auto) Seg Neutrophils % Seg Neuts % (Manual) Lymphocytes % (Manual) Monocytes % (Manual) Seg Neutrophils # Seg Neutrophils # Man Lymphocytes # (Manual) Monocytes # (Manual) Eosinophils # (Manual) PT INR D-Dimer ABG pH 7.176 L* POC ABG pCO2 POC ABG pO2 ABG pO2 91.2 H ABG HCO3 ABG O2 Saturation ABG Base Excess -4.6 L ABG Hemoglobin ABG Oxyhemoglobin ABG Potassium ABG Glucose Oxyhemoglobin 92.6 L Carboxyhemoglobin Sodium Potassium Chloride Carbon Dioxide BUN Creatinine Glucose POC Glucose Ferritin 1715.0 H Total Bilirubin Alkaline Phosphatase Lactate Dehydrogenase 303 H Troponin T C-Reactive Protein 26.10 H Total Protein Albumin Prealbumin LDL Cholesterol Direct Arterial Blood Glucose Arterial Blood Ionized Calcium Urine WBC (Auto) 02/24/20 02/24/20 02/24/20 11:52 13:45 19:35 WBC RBC Hgb Hct MCV MCH RDW Plt Count Lymph % (Auto) [place] # (Auto) Seg Neutrophils % Seg Neuts % (Manual) Lymphocytes % (Manual) Monocytes % (Manual) Seg Neutrophils # Seg Neutrophils # Man Lymphocytes # (Manual) Monocytes # (Manual) Eosinophils # (Manual) PT INR D-Dimer ABG pH 7.051 L* 7.300 L POC ABG pCO2 POC ABG pO2 ABG pO2 94.7 H 75.1 L ABG HCO3 18.0 L ABG O2 Saturation 93.5 L ABG Base Excess -6.8 L -7.8 L ABG Hemoglobin 13.2 L 11.9 L ABG Oxyhemoglobin ABG Potassium ABG Glucose Oxyhemoglobin 91.0 L 92.7 L Carboxyhemoglobin Sodium Potassium Chloride Carbon Dioxide BUN Creatinine Glucose POC Glucose Ferritin Total Bilirubin Alkaline Phosphatase Lactate Dehydrogenase Troponin T 0.034 H D C-Reactive Protein Total Protein Albumin Prealbumin LDL Cholesterol Direct Arterial Blood Glucose Arterial Blood Ionized Calcium Urine WBC (Auto) 02/25/20 02/25/20 02/25/20 04:00 04:00 12:26 WBC 22.9 H RBC Hgb Hct MCV 83 L MCH 27 L RDW Plt Count 468 H Lymph % (Auto) [place] # (Auto) Seg Neutrophils % Seg Neuts % (Manual) 89.0 H Lymphocytes % (Manual) 7.0 L Monocytes % (Manual) Seg Neutrophils # Seg Neutrophils # Man 20.4 H Lymphocytes # (Manual) Monocytes # (Manual) Eosinophils # (Manual) PT INR D-Dimer ABG pH POC ABG pCO2 POC ABG pO2 ABG pO2 ABG HCO3 ABG O2 Saturation ABG Base Excess ABG Hemoglobin ABG Oxyhemoglobin ABG Potassium 2.6 L ABG Glucose 142 H Oxyhemoglobin Carboxyhemoglobin Sodium Potassium 3.2 L Chloride Carbon Dioxide 18 L BUN Creatinine 0.2 L Glucose 114 H POC Glucose Ferritin Total Bilirubin Alkaline Phosphatase Lactate Dehydrogenase Troponin T C-Reactive Protein Total Protein Albumin 3.5 L Prealbumin LDL Cholesterol Direct Arterial Blood Glucose 142 H Arterial Blood Ionized Calcium Urine WBC (Auto) 02/26/20 02/26/20 02/26/20 15:58 17:00 23:43 WBC RBC Hgb Hct MCV MCH RDW Plt Count Lymph % (Auto) [place] # (Auto) Seg Neutrophils % Seg Neuts % (Manual) Lymphocytes % (Manual) Monocytes % (Manual) Seg Neutrophils # Seg Neutrophils # Man Lymphocytes # (Manual) Monocytes # (Manual) Eosinophils # (Manual) PT INR D-Dimer ABG pH 7.502 H POC ABG pCO2 POC ABG pO2 213.6 H ABG pO2 ABG HCO3 ABG O2 Saturation ABG Base Excess ABG Hemoglobin ABG Oxyhemoglobin 99.2 H ABG Potassium 2.9 L ABG Glucose 160 H Oxyhemoglobin Carboxyhemoglobin 0.4 L Sodium Potassium Chloride Carbon Dioxide BUN Creatinine Glucose POC Glucose 189 H 120 H Ferritin Total Bilirubin Alkaline Phosphatase Lactate Dehydrogenase Troponin T C-Reactive Protein Total Protein Albumin Prealbumin LDL Cholesterol Direct Arterial Blood Glucose 160 H Arterial Blood Ionized Calcium 4.5 L Urine WBC (Auto) 02/27/20 02/27/20 02/27/20 05:00 07:04 17:45 WBC RBC Hgb Hct MCV MCH RDW Plt Count Lymph % (Auto) [place] # (Auto) Seg Neutrophils % Seg Neuts % (Manual) Lymphocytes % (Manual) Monocytes % (Manual) Seg Neutrophils # Seg Neutrophils # Man Lymphocytes # (Manual) Monocytes # (Manual) Eosinophils # (Manual) PT INR D-Dimer ABG pH 7.524 H POC ABG pCO2 POC ABG pO2 ABG pO2 ABG HCO3 ABG O2 Saturation ABG Base Excess ABG Hemoglobin ABG Oxyhemoglobin ABG Potassium 3.0 L ABG Glucose 143 H Oxyhemoglobin Carboxyhemoglobin Sodium Potassium Chloride Carbon Dioxide BUN Creatinine Glucose POC Glucose 154 H 175 H Ferritin Total Bilirubin Alkaline Phosphatase Lactate Dehydrogenase Troponin T C-Reactive Protein Total Protein Albumin Prealbumin LDL Cholesterol Direct Arterial Blood Glucose 143 H Arterial Blood Ionized Calcium Urine WBC (Auto) 02/27/20 02/28/20 02/28/20 Unknown 00:21 04:15 WBC 18.7 H RBC Hgb Hct MCV MCH RDW Plt Count Lymph % (Auto) 8.[address] [place] # (Auto) 1.2 H Seg Neutrophils % 84.6 H Seg Neuts % (Manual) Lymphocytes % (Manual) Monocytes % (Manual) Seg Neutrophils # 15.9 H Seg Neutrophils # Man Lymphocytes # (Manual) Monocytes # (Manual) Eosinophils # (Manual) PT INR D-Dimer ABG pH POC ABG pCO2 POC ABG pO2 ABG pO2 ABG HCO3 ABG O2 Saturation ABG Base Excess ABG Hemoglobin ABG Oxyhemoglobin ABG Potassium ABG Glucose Oxyhemoglobin Carboxyhemoglobin Sodium Potassium 2.9 L* Chloride Carbon Dioxide 33 H D BUN Creatinine < 0.2 L Glucose 157 H POC Glucose 134 H Ferritin Total Bilirubin Alkaline Phosphatase Lactate Dehydrogenase Troponin T C-Reactive Protein Total Protein Albumin Prealbumin LDL Cholesterol Direct Arterial Blood Glucose Arterial Blood Ionized Calcium Urine WBC (Auto) 02/28/20 02/28/20 02/28/20 04:15 05:16 05:39 WBC RBC Hgb Hct MCV MCH RDW Plt Count Lymph % (Auto) [place] # (Auto) Seg Neutrophils % Seg Neuts % (Manual) Lymphocytes % (Manual) Monocytes % (Manual) Seg Neutrophils # Seg Neutrophils # Man Lymphocytes # (Manual) Monocytes # (Manual) Eosinophils # (Manual) PT INR D-Dimer ABG pH POC ABG pCO2 POC ABG pO2 ABG pO2 142.9 H ABG HCO3 34.1 H ABG O2 Saturation ABG Base Excess 8.3 H ABG Hemoglobin ABG Oxyhemoglobin ABG Potassium ABG Glucose Oxyhemoglobin Carboxyhemoglobin Sodium 151 H Potassium Chloride Carbon Dioxide 32 H BUN Creatinine 0.2 L Glucose 167 H POC Glucose 138 H Ferritin Total Bilirubin Alkaline Phosphatase Lactate Dehydrogenase Troponin T C-Reactive Protein Total Protein Albumin Prealbumin LDL Cholesterol Direct Arterial Blood Glucose Arterial Blood Ionized Calcium Urine WBC (Auto) 02/28/20 02/28/20 02/28/20 11:05 11:33 12:54 WBC RBC Hgb Hct MCV MCH RDW Plt Count Lymph % (Auto) [place] # (Auto) Seg Neutrophils % Seg Neuts % (Manual) Lymphocytes % (Manual) Monocytes % (Manual) Seg Neutrophils # Seg Neutrophils # Man Lymphocytes # (Manual) Monocytes # (Manual) Eosinophils # (Manual) PT INR D-Dimer ABG pH POC ABG pCO2 POC ABG pO2 ABG pO2 ABG HCO3 ABG O2 Saturation ABG Base Excess ABG Hemoglobin ABG Oxyhemoglobin ABG Potassium ABG Glucose Oxyhemoglobin Carboxyhemoglobin Sodium Potassium Chloride Carbon Dioxide BUN Creatinine Glucose POC Glucose 160 H Ferritin Total Bilirubin Alkaline Phosphatase Lactate Dehydrogenase Troponin T C-Reactive Protein 4.70 H Total Protein Albumin Prealbumin 0.090 L LDL Cholesterol Direct Arterial Blood Glucose Arterial Blood Ionized Calcium Urine WBC (Auto) 02/28/20 02/29/20 02/29/20 17:34 00:44 04:05 WBC 19.6 H RBC Hgb Hct MCV MCH 27 L RDW 15.4 H Plt Count Lymph % (Auto) [place] # (Auto) Seg Neutrophils % Seg Neuts % (Manual) 86.0 H Lymphocytes % (Manual) 7.0 L Monocytes % (Manual) Seg Neutrophils # Seg Neutrophils # Man 16.9 H Lymphocytes # (Manual) Monocytes # (Manual) 1.2 H Eosinophils # (Manual) PT INR D-Dimer ABG pH POC ABG pCO2 POC ABG pO2 ABG pO2 ABG HCO3 ABG O2 Saturation ABG Base Excess ABG Hemoglobin ABG Oxyhemoglobin ABG Potassium ABG Glucose Oxyhemoglobin Carboxyhemoglobin Sodium Potassium Chloride Carbon Dioxide BUN Creatinine Glucose POC Glucose 136 H 156 H Ferritin Total Bilirubin Alkaline Phosphatase Lactate Dehydrogenase Troponin T C-Reactive Protein Total Protein Albumin Prealbumin LDL Cholesterol Direct Arterial Blood Glucose Arterial Blood Ionized Calcium Urine WBC (Auto) 02/29/20 02/29/20 02/29/20 04:05 05:14 05:33 WBC RBC Hgb Hct MCV MCH RDW Plt Count Lymph % (Auto) [place] # (Auto) Seg Neutrophils % Seg Neuts % (Manual) Lymphocytes % (Manual) Monocytes % (Manual) Seg Neutrophils # Seg Neutrophils # Man Lymphocytes # (Manual) Monocytes # (Manual) Eosinophils # (Manual) PT INR D-Dimer ABG pH POC ABG pCO2 54.3 H POC ABG pO2 124.8 H ABG pO2 ABG HCO3 ABG O2 Saturation ABG Base Excess ABG Hemoglobin ABG Oxyhemoglobin ABG Potassium ABG Glucose 185 H Oxyhemoglobin Carboxyhemoglobin Sodium 148 H Potassium Chloride Carbon Dioxide 33 H BUN Creatinine < 0.2 L Glucose 173 H POC Glucose 152 H Ferritin Total Bilirubin Alkaline Phosphatase Lactate Dehydrogenase Troponin T C-Reactive Protein Total Protein Albumin Prealbumin LDL Cholesterol Direct Arterial Blood Glucose 185 H Arterial Blood Ionized Calcium Urine WBC (Auto) 03/01/20 03/01/20 03/01/20 00:00 03:45 04:33 WBC 23.1 H RBC Hgb Hct MCV MCH 27 L RDW 15.3 H Plt Count Lymph % (Auto) [place] # (Auto) Seg Neutrophils % Seg Neuts % (Manual) 92.0 H Lymphocytes % (Manual) 6.0 L Monocytes % (Manual) Seg Neutrophils # Seg Neutrophils # Man 21.3 H Lymphocytes # (Manual) Monocytes # (Manual) Eosinophils # (Manual) 0.5 H PT INR D-Dimer ABG pH 7.492 H POC ABG pCO2 POC ABG pO2 ABG pO2 157.1 H ABG HCO3 32.3 H ABG O2 Saturation ABG Base Excess 8.1 H ABG Hemoglobin 13.2 L ABG Oxyhemoglobin ABG Potassium ABG Glucose Oxyhemoglobin Carboxyhemoglobin Sodium Potassium Chloride Carbon Dioxide BUN Creatinine Glucose POC Glucose 109 H Ferritin Total Bilirubin Alkaline Phosphatase Lactate Dehydrogenase Troponin T C-Reactive Protein Total Protein Albumin Prealbumin LDL Cholesterol Direct Arterial Blood Glucose Arterial Blood Ionized Calcium Urine WBC (Auto) 03/01/20 03/01/20 03/01/20 04:33 05:29 12:32 WBC RBC Hgb Hct MCV MCH RDW Plt Count Lymph % (Auto) [place] # (Auto) Seg Neutrophils % Seg Neuts % (Manual) Lymphocytes % (Manual) Monocytes % (Manual) Seg Neutrophils # Seg Neutrophils # Man Lymphocytes # (Manual) Monocytes # (Manual) Eosinophils # (Manual) PT INR D-Dimer ABG pH POC ABG pCO2 POC ABG pO2 ABG pO2 ABG HCO3 ABG O2 Saturation ABG Base Excess ABG Hemoglobin ABG Oxyhemoglobin ABG Potassium ABG Glucose Oxyhemoglobin Carboxyhemoglobin Sodium 146 H Potassium Chloride Carbon Dioxide 32 H BUN Creatinine < 0.2 L Glucose 120 H POC Glucose 120 H 128 H Ferritin Total Bilirubin Alkaline Phosphatase Lactate Dehydrogenase Troponin T C-Reactive Protein Total Protein Albumin Prealbumin LDL Cholesterol Direct Arterial Blood Glucose Arterial Blood Ionized Calcium Urine WBC (Auto) 03/01/20 03/01/2020 17:38 23:46 06:13 WBC RBC Hgb Hct MCV MCH RDW Plt Count Lymph % (Auto) [place] # (Auto) Seg Neutrophils % Seg Neuts % (Manual) Lymphocytes % (Manual) Monocytes % (Manual) Seg Neutrophils # Seg Neutrophils # Man Lymphocytes # (Manual) Monocytes # (Manual) Eosinophils # (Manual) PT INR D-Dimer ABG pH POC ABG pCO2 POC ABG pO2 ABG pO2 ABG HCO3 ABG O2 Saturation ABG Base Excess ABG Hemoglobin ABG Oxyhemoglobin ABG Potassium ABG Glucose Oxyhemoglobin Carboxyhemoglobin Sodium Potassium Chloride Carbon Dioxide BUN Creatinine Glucose POC Glucose 114 H 121 H 120 H Ferritin Total Bilirubin Alkaline Phosphatase Lactate Dehydrogenase Troponin T C-Reactive Protein Total Protein Albumin Prealbumin LDL Cholesterol Direct Arterial Blood Glucose Arterial Blood Ionized Calcium Urine WBC (Auto) 03/02/20 03/02/20 03/03/20 09:47 09:47 10:21 WBC 23.6 H RBC Hgb Hct MCV MCH RDW 15.3 H Plt Count 494 H Lymph % (Auto) [place] # (Auto) Seg Neutrophils % Seg Neuts % (Manual) 85.0 H Lymphocytes % (Manual) 6.0 L Monocytes % (Manual) Seg Neutrophils # Seg Neutrophils # Man 20.1 H Lymphocytes # (Manual) Monocytes # (Manual) 1.7 H Eosinophils # (Manual) PT INR D-Dimer ABG pH POC ABG pCO2 POC ABG pO2 ABG pO2 ABG HCO3 ABG O2 Saturation ABG Base Excess ABG Hemoglobin ABG Oxyhemoglobin ABG Potassium 3.3 L ABG Glucose 158 H Oxyhemoglobin Carboxyhemoglobin Sodium Potassium Chloride Carbon Dioxide BUN Creatinine < 0.2 L Glucose 177 H POC Glucose Ferritin Total Bilirubin Alkaline Phosphatase Lactate Dehydrogenase Troponin T C-Reactive Protein Total Protein Albumin Prealbumin LDL Cholesterol Direct Arterial Blood Glucose 158 H Arterial Blood Ionized Calcium Urine WBC (Auto) 03/03/20 03/04/20 03/04/20 21:30 00:00 12:23 WBC RBC Hgb Hct MCV MCH RDW Plt Count Lymph % (Auto) [place] # (Auto) Seg Neutrophils % Seg Neuts % (Manual) Lymphocytes % (Manual) Monocytes % (Manual) Seg Neutrophils # Seg Neutrophils # Man Lymphocytes # (Manual) Monocytes # (Manual) Eosinophils # (Manual) PT INR D-Dimer ABG pH 7.328 L POC ABG pCO2 POC ABG pO2 ABG pO2 68.4 L ABG HCO3 35.0 H ABG O2 Saturation 93.9 L ABG Base Excess 6.8 H ABG Hemoglobin 12.7 L ABG Oxyhemoglobin ABG Potassium ABG Glucose Oxyhemoglobin 91.9 L Carboxyhemoglobin Sodium Potassium Chloride Carbon Dioxide BUN Creatinine Glucose POC Glucose 187 H 163 H Ferritin Total Bilirubin Alkaline Phosphatase Lactate Dehydrogenase Troponin T C-Reactive Protein Total Protein Albumin Prealbumin LDL Cholesterol Direct Arterial Blood Glucose Arterial Blood Ionized Calcium Urine WBC (Auto) 03/04/20 03/04/20 03/05/20 18:15 21:30 06:02 WBC RBC Hgb Hct MCV MCH RDW Plt Count Lymph % (Auto) [place] # (Auto) Seg Neutrophils % Seg Neuts % (Manual) Lymphocytes % (Manual) Monocytes % (Manual) Seg Neutrophils # Seg Neutrophils # Man Lymphocytes # (Manual) Monocytes # (Manual) Eosinophils # (Manual) PT INR D-Dimer ABG pH 7.297 L POC ABG pCO2 POC ABG pO2 ABG pO2 ABG HCO3 41.0 H ABG O2 Saturation ABG Base Excess 11.0 H ABG Hemoglobin 13.1 L ABG Oxyhemoglobin ABG Potassium ABG Glucose Oxyhemoglobin 94.5 L Carboxyhemoglobin Sodium Potassium Chloride Carbon Dioxide BUN Creatinine Glucose POC Glucose 192 H 127 H Ferritin Total Bilirubin Alkaline Phosphatase Lactate Dehydrogenase Troponin T C-Reactive Protein Total Protein Albumin Prealbumin LDL Cholesterol Direct Arterial Blood Glucose Arterial Blood Ionized Calcium Urine WBC (Auto) 03/05/20 03/05/20 03/06/20 12:09 16:42 00:24 WBC RBC Hgb Hct MCV MCH RDW Plt Count Lymph % (Auto) [place] # (Auto) Seg Neutrophils % Seg Neuts % (Manual) Lymphocytes % (Manual) Monocytes % (Manual) Seg Neutrophils # Seg Neutrophils # Man Lymphocytes # (Manual) Monocytes # (Manual) Eosinophils # (Manual) PT INR D-Dimer ABG pH POC ABG pCO2 POC ABG pO2 ABG pO2 ABG HCO3 ABG O2 Saturation ABG Base Excess ABG Hemoglobin ABG Oxyhemoglobin ABG Potassium ABG Glucose Oxyhemoglobin Carboxyhemoglobin Sodium Potassium Chloride Carbon Dioxide BUN Creatinine Glucose POC Glucose 147 H 114 H 134 H Ferritin Total Bilirubin Alkaline Phosphatase Lactate Dehydrogenase Troponin T C-Reactive Protein Total Protein Albumin Prealbumin LDL Cholesterol Direct Arterial Blood Glucose Arterial Blood Ionized Calcium Urine WBC (Auto) 03/06/20 03/06/20 03/06/20 04:34 05:53 06:08 WBC 25.4 H RBC Hgb 10.5 L Hct 32.7 L MCV MCH 27 L RDW 15.3 H Plt Count 634 H Lymph % (Auto) [place] # (Auto) Seg Neutrophils % Seg Neuts % (Manual) 88.0 H Lymphocytes % (Manual) 2.0 L Monocytes % (Manual) 8.0 H Seg Neutrophils # Seg Neutrophils # Man 22.4 H Lymphocytes # (Manual) 0.5 L Monocytes # (Manual) 2.0 H Eosinophils # (Manual) PT INR D-Dimer ABG pH POC ABG pCO2 POC ABG pO2 ABG pO2 ABG HCO3 37.9 H ABG O2 Saturation ABG Base Excess 11.4 H ABG Hemoglobin 10.6 L ABG Oxyhemoglobin ABG Potassium ABG Glucose Oxyhemoglobin 94.7 L Carboxyhemoglobin Sodium Potassium Chloride Carbon Dioxide BUN Creatinine Glucose POC Glucose 135 H Ferritin Total Bilirubin Alkaline Phosphatase Lactate Dehydrogenase Troponin T C-Reactive Protein Total Protein Albumin Prealbumin LDL Cholesterol Direct Arterial Blood Glucose Arterial Blood Ionized Calcium Urine WBC (Auto) 03/06/20 03/06/20 03/06/20 06:08 12:19 19:10 WBC RBC Hgb Hct MCV MCH RDW Plt Count Lymph % (Auto) [place] # (Auto) Seg Neutrophils % Seg Neuts % (Manual) Lymphocytes % (Manual) Monocytes % (Manual) Seg Neutrophils # Seg Neutrophils # Man Lymphocytes # (Manual) Monocytes # (Manual) Eosinophils # (Manual) PT INR D-Dimer ABG pH POC ABG pCO2 POC ABG pO2 ABG pO2 ABG HCO3 ABG O2 Saturation ABG Base Excess ABG Hemoglobin ABG Oxyhemoglobin ABG Potassium ABG Glucose Oxyhemoglobin Carboxyhemoglobin Sodium 150 H D Potassium Chloride Carbon Dioxide 39 H D BUN 23 H Creatinine < 0.2 L Glucose 144 H POC Glucose 169 H 152 H Ferritin Total Bilirubin Alkaline Phosphatase Lactate Dehydrogenase Troponin T C-Reactive Protein Total Protein Albumin 3.3 L Prealbumin LDL Cholesterol Direct Arterial Blood Glucose Arterial Blood Ionized Calcium Urine WBC (Auto) 03/06/20 03/07/20 03/07/20 23:58 04:25 04:25 WBC 22.1 H RBC Hgb 10.9 L Hct 32.9 L MCV MCH RDW 15.5 H Plt Count 739 H Lymph % (Auto) 7.[address] [place] # (Auto) 1.3 H Seg Neutrophils % 85.5 H Seg Neuts % (Manual) Lymphocytes % (Manual) Monocytes % (Manual) Seg Neutrophils # 18.9 H Seg Neutrophils # Man Lymphocytes # (Manual) Monocytes # (Manual) Eosinophils # (Manual) PT INR D-Dimer ABG pH POC ABG pCO2 POC ABG pO2 ABG pO2 ABG HCO3 ABG O2 Saturation ABG Base Excess ABG Hemoglobin ABG Oxyhemoglobin ABG Potassium ABG Glucose Oxyhemoglobin Carboxyhemoglobin Sodium 146 H Potassium Chloride Carbon Dioxide 37 H BUN Creatinine < 0.2 L Glucose 118 H POC Glucose 111 H Ferritin Total Bilirubin Alkaline Phosphatase Lactate Dehydrogenase Troponin T C-Reactive Protein Total Protein Albumin 3.7 L Prealbumin LDL Cholesterol Direct Arterial Blood Glucose Arterial Blood Ionized Calcium Urine WBC (Auto) 03/07/20 03/07/20 03/07/20 05:20 17:45 23:32 WBC RBC Hgb Hct MCV MCH RDW Plt Count Lymph % (Auto) [place] # (Auto) Seg Neutrophils % Seg Neuts % (Manual) Lymphocytes % (Manual) Monocytes % (Manual) Seg Neutrophils # Seg Neutrophils # Man Lymphocytes # (Manual) Monocytes # (Manual) Eosinophils # (Manual) PT INR D-Dimer ABG pH POC ABG pCO2 POC ABG pO2 ABG pO2 ABG HCO3 ABG O2 Saturation ABG Base Excess ABG Hemoglobin ABG Oxyhemoglobin ABG Potassium ABG Glucose Oxyhemoglobin Carboxyhemoglobin Sodium Potassium Chloride Carbon Dioxide BUN Creatinine Glucose POC Glucose 113 H 124 H 210 H Ferritin Total Bilirubin Alkaline Phosphatase Lactate Dehydrogenase Troponin T C-Reactive Protein Total Protein Albumin Prealbumin LDL Cholesterol Direct Arterial Blood Glucose Arterial Blood Ionized Calcium Urine WBC (Auto) 03/08/20 03/08/20 03/08/20 05:35 06:43 06:43 WBC 28.9 H RBC 3.53 L Hgb 9.7 L Hct 30.3 L MCV MCH RDW 15.6 H Plt Count 578 H Lymph % (Auto) [place] # (Auto) Seg Neutrophils % Seg Neuts % (Manual) 93.0 H Lymphocytes % (Manual) 4.0 L Monocytes % (Manual) Seg Neutrophils # Seg Neutrophils # Man 26.9 H Lymphocytes # (Manual) Monocytes # (Manual) Eosinophils # (Manual) PT INR D-Dimer ABG pH POC ABG pCO2 POC ABG pO2 ABG pO2 ABG HCO3 ABG O2 Saturation ABG Base Excess ABG Hemoglobin ABG Oxyhemoglobin ABG Potassium ABG Glucose Oxyhemoglobin Carboxyhemoglobin Sodium 146 H Potassium Chloride Carbon Dioxide 35 H BUN 34 H Creatinine 0.3 L D Glucose 125 H POC Glucose 147 H Ferritin Total Bilirubin Alkaline Phosphatase Lactate Dehydrogenase Troponin T C-Reactive Protein Total Protein 5.9 L Albumin 3.2 L Prealbumin LDL Cholesterol Direct Arterial Blood Glucose Arterial Blood Ionized Calcium Urine WBC (Auto) 03/08/20 03/08/20 03/08/20 08:57 11:14 12:34 WBC RBC Hgb Hct MCV MCH RDW Plt Count Lymph % (Auto) [place] # (Auto) Seg Neutrophils % Seg Neuts % (Manual) Lymphocytes % (Manual) Monocytes % (Manual) Seg Neutrophils # Seg Neutrophils # Man Lymphocytes # (Manual) Monocytes # (Manual) Eosinophils # (Manual) PT INR D-Dimer ABG pH POC ABG pCO2 63.1 H POC ABG pO2 ABG pO2 ABG HCO3 ABG O2 Saturation ABG Base Excess ABG Hemoglobin 10.9 L ABG Oxyhemoglobin ABG Potassium ABG Glucose 176 H Oxyhemoglobin Carboxyhemoglobin Sodium Potassium Chloride Carbon Dioxide BUN Creatinine Glucose POC Glucose 171 H Ferritin Total Bilirubin Alkaline Phosphatase Lactate Dehydrogenase Troponin T C-Reactive Protein Total Protein Albumin Prealbumin LDL Cholesterol Direct Arterial Blood Glucose 176 H Arterial Blood Ionized Calcium 4.5 L Urine WBC (Auto) 10.0 H 03/08/20 03/08/20 03/09/20 18:02 23:43 05:49 WBC RBC Hgb Hct MCV MCH RDW Plt Count Lymph % (Auto) [place] # (Auto) Seg Neutrophils % Seg Neuts % (Manual) Lymphocytes % (Manual) Monocytes % (Manual) Seg Neutrophils # Seg Neutrophils # Man Lymphocytes # (Manual) Monocytes # (Manual) Eosinophils # (Manual) PT INR D-Dimer ABG pH POC ABG pCO2 POC ABG pO2 ABG pO2 ABG HCO3 ABG O2 Saturation ABG Base Excess ABG Hemoglobin ABG Oxyhemoglobin ABG Potassium ABG Glucose Oxyhemoglobin Carboxyhemoglobin Sodium Potassium Chloride Carbon Dioxide BUN Creatinine Glucose POC Glucose 157 H 134 H 163 H Ferritin Total Bilirubin Alkaline Phosphatase Lactate Dehydrogenase Troponin T C-Reactive Protein Total Protein Albumin Prealbumin LDL Cholesterol Direct Arterial Blood Glucose Arterial Blood Ionized Calcium Urine WBC (Auto) 03/09/20 03/09/20 03/09/20 08:35 08:35 12:11 WBC 23.4 H RBC 3.36 L Hgb 9.3 L Hct 28.8 L MCV MCH RDW 15.9 H Plt Count 521 H Lymph % (Auto) [place] # (Auto) Seg Neutrophils % Seg Neuts % (Manual) 87.0 H Lymphocytes % (Manual) 4.0 L Monocytes % (Manual) 9.0 H Seg Neutrophils # Seg Neutrophils # Man 20.4 H Lymphocytes # (Manual) 0.9 L Monocytes # (Manual) 2.1 H Eosinophils # (Manual) PT INR D-Dimer ABG pH POC ABG pCO2 POC ABG pO2 ABG pO2 ABG HCO3 ABG O2 Saturation ABG Base Excess ABG Hemoglobin ABG Oxyhemoglobin ABG Potassium ABG Glucose Oxyhemoglobin Carboxyhemoglobin Sodium 147 H Potassium Chloride Carbon Dioxide 37 H BUN 63 H Creatinine Glucose 154 H POC Glucose 128 H Ferritin Total Bilirubin Alkaline Phosphatase Lactate Dehydrogenase Troponin T C-Reactive Protein Total Protein Albumin Prealbumin LDL Cholesterol Direct Arterial Blood Glucose Arterial Blood Ionized Calcium Urine WBC (Auto) 03/09/20 03/10/20 03/10/20 17:51 00:25 05:41 WBC RBC Hgb Hct MCV MCH RDW Plt Count Lymph % (Auto) [place] # (Auto) Seg Neutrophils % Seg Neuts % (Manual) Lymphocytes % (Manual) Monocytes % (Manual) Seg Neutrophils # Seg Neutrophils # Man Lymphocytes # (Manual) Monocytes # (Manual) Eosinophils # (Manual) PT INR D-Dimer ABG pH POC ABG pCO2 POC ABG pO2 ABG pO2 ABG HCO3 ABG O2 Saturation ABG Base Excess ABG Hemoglobin ABG Oxyhemoglobin ABG Potassium ABG Glucose Oxyhemoglobin Carboxyhemoglobin Sodium Potassium Chloride Carbon Dioxide BUN Creatinine Glucose POC Glucose 127 H 128 H 153 H Ferritin Total Bilirubin Alkaline Phosphatase Lactate Dehydrogenase Troponin T C-Reactive Protein Total Protein Albumin Prealbumin LDL Cholesterol Direct Arterial Blood Glucose Arterial Blood Ionized Calcium Urine WBC (Auto) 03/10/20 03/10/20 03/10/20 06:14 06:14 12:02 WBC 18.3 H RBC 3.45 L Hgb 9.5 L Hct 29.5 L MCV MCH RDW 16.1 H Plt Count 494 H Lymph % (Auto) [place] # (Auto) Seg Neutrophils % Seg Neuts % (Manual) 95.0 H Lymphocytes % (Manual) 1.0 L Monocytes % (Manual) Seg Neutrophils # Seg Neutrophils # Man 17.4 H Lymphocytes # (Manual) 0.2 L Monocytes # (Manual) Eosinophils # (Manual) PT INR D-Dimer ABG pH POC ABG pCO2 POC ABG pO2 ABG pO2 ABG HCO3 ABG O2 Saturation ABG Base Excess ABG Hemoglobin ABG Oxyhemoglobin ABG Potassium ABG Glucose Oxyhemoglobin Carboxyhemoglobin Sodium 149 H Potassium Chloride Carbon Dioxide 35 H BUN 34 H Creatinine 0.2 L D Glucose 177 H POC Glucose 151 H Ferritin Total Bilirubin Alkaline Phosphatase Lactate Dehydrogenase Troponin T C-Reactive Protein Total Protein Albumin Prealbumin LDL Cholesterol Direct Arterial Blood Glucose Arterial Blood Ionized Calcium Urine WBC (Auto) Chest x-ray: pending Allied health notes reviewed: nursing
[2020-03-10] MEDS: MORPHINE 2 MG/1 ML INJ IV PRN ×2 (15:52→20:37)
--- NOTE | 2020-03-10 16:32 | Progress Note ---
Assessment and Plan --Acute hypoxic hypercapnic respiratory failure; Intubated on mechanical ventilation. Etiology secondary to sepsis, ALS, multifocal pneumonia (Covid negative). S/p trach placement 03/07/20 --ALS; Chronic Continue to provide supportive care --Elevated D-dimers; CTA chest, lower extremity venous Doppler both are negative Lovenox for DVT prophylaxis --Bilateral pneumonia; probably community-acquired Continue cefepime and vancomycin ID recommendations appreciated --Sepsis secondary to pneumonia Continue cefepime and vancomycin --Elevated troponin; Serial cardiac enzymes, serial EKGs Echocardiogram, cardiology consult if needed --Hypernatremia Trend sodium Free water via feeding tube --Abdominal distention due to bladder outlet obstruction, resolved CT abdomen showed bladder outlet obstruction, urology consulted s/p drake placement by urology on 03/09 --Hypotension possibly from septic shock and bladder outlet obstruction improved following placing drake --DVT prophylaxis; Lovenox The high probability of a clinically significant, sudden or life threatening deterioration of the [cardiac, renal and respiratory] system(s) required my full and direct attention, intervention and personal management. The aggregate crit ical care time was [34] minutes. This time is in addition to time spent performing reported procedures but includes the following: [x] Data Review and interpretation [x] Patient assessment and monitoring of vital signs [x] Documentation [x] Medication orders and management Brief history: 59-year-old male patient with significant past medical history of ALS, pres ented to ED with worsening shortness of breath since the morning [employer]. Patient was on a trilogy machine for breathing /. EMS arrived, patient had O2 sats in the 80s. EMS attempted to place patient on their CPAP machine, however patient did not tolerate. Patient was admitted to the ICU with diagnosis of acute hypoxic respiratory failure and placed on BiPAP. Patient initially tolerated but later deteriorated with respiratory status. CTA chest showed no PE but significant for bilateral pneumonia. Doppler ultrasound also negative for DVT. COVID-19 test ordered. Due to persistent hypoxia, patient was intubated on 02/26/2020 at 1500. Patient now on mechanical ventilation in the ICU s/p trach placement today. Daily course: 02/26/2020. Blood cultures are negative x48 hours and Covid testing negative as well. Continue antibiotics per ID recommendations for community-acquired bilateral pneumonia. Cardiology consultation for elevated troponin. Check echocardiogram. 02/27/2020. Events of yesterday noted with asystole following V. fib arrest. Patient currently on AC mode rate 20, tidal volume 400, FiO2 50% and a PEEP of 6. Follow-up echocardiogram for elevated troponin. Cardiology suspects NSTEMI Type 2 in the setting of acute resp failure. Chest CTA and BLE Dopplers neg. we will discontinue Decadron given the Covid PCR is negative. 02/28/2020. Spoke with the sister Felisa Eli who is the power of banking attorney regarding advanced directives and she instructed me that she would like to continue with aggressive care at this time. I informed her of the guarded prognosis and high mortality/morbidity and she voiced understanding. Patient currently with AC mode ventilation rate 18, tidal volume 400, FiO2 40% and a PEEP of 6. Continue antibiotics for pneumonia. ID previously consulted. Also consult neurology with regards to ALS. 02/29/2020; patient is intubated and on CPAP patient is alert and oriented. Patient has ALS. Dr. Álvarez spoke with his sister and she wants aggressive care. Continue antibiotics for pneumonia. Neurology consulted for ALS. Prognosis poor 03/01/2020; patient is intubated and on CPAP, patient is alert and oriented. I spoke with his 2 sisters about the management plan. 03/02/2020; patient is intubated and on CPAP. Patient was alert and oriented. I spoke with Dr. mohr and he thinks patient may need mechanical ventilatio n, likely his disease progressed. Dr. Flowers did debridement this morning. 03/03/2020; patient is intubated and on CPAP, patient was on trilogy and BiPAP at home. Patient has ALS. on spontaneous breathing trial. Patient is alert and oriented but quadriplegic. Patient has severe bilateral pneumonia and is on cefepime and Vanco, ID is following. Patient has sacral decubitus ulcer and debridement was done by Dr. Flowers and there is no osteomyelitis. 03/05. Patient still on broad-spectrum antibiotics. Status post sacral decubitus ulcer debridements-no osteomyelitis. Patient is on AC 25/400/30% PEEP 5. No blood gas results today. 03/06. Plan for tracheostomy by surgery. Still remains intubated. Labs reviewed-sodium 150. Started on free water 200 every 8hr. trend sodium. 03/07: s/p trach placement today, patient placed back on mechanical ventilation with trach. Plan to resume tube feeding with NG tube. Continue to monitor vitals, monitor BMP. 03/08: Patient noted to have distended abdomen with low urinary output. Obtain bladder scan rule out urine retention, UA and urine culture, continue to follow clinically. 03/09: Patient noted to have low blood pressure with SBP as low as 70s. Ordered for 500 mils normal saline bolus. CT abdomen showed bladder outlet obstruction, urology consulted. 03/10: placed on drake by urology o/n, improved urine outpt. cont to monitor BMP. resuded TF - cont free water with TF. wean off from vent as tolerated. Subjective Date of service: 03/10/20 Principal diagnosis: Ac on Ch Hypercapnic & hypoxemic Resp Failure; Severe Sepsis; Jamar PNA; ALS Interval history: Patient seen and examined Remains on mechanical ventilation with trach tube Discussed with RN at the bedside Urine outpt improved following drake placement Vitals reviewed -BP stable Objective - Exam Narrative Exam: GENERAL: Awake. Intubated with trach tube HEAD: No signs of head trauma. EYES: Pupils are equal. Extraocular motions intact. EARS: Hearing grossly intact. MOUTH: Oropharynx is normal. NECK: No adenopathy, no JVD. CHEST: Coarse breath sounds bilaterally CARDIAC: Regular rate and rhythm. S1 and S2, without murmurs, gallops, or rubs. VASCULAR: No Edema. Peripheral pulses normal and equal in all extremities. ABDOMEN: Soft, non tender and nondistended. Bowel Sounds normal. NEUROLOGIC EXAM: Awake SKIN: No obvious lesions - Constitutional Vitals: Vital Signs - 12hr 03/10/20 03/10/20 03/10/20 05:00 05:03 05:17 Temperature Pulse Rate 105 H 103 H Pulse Rate [ From Monitor] Respiratory 13 Rate Blood Pressure 124/77 124/77 O2 Sat by Pulse 96 97 Oximetry O2 Sat by Pulse 97 Oximetry [ Assessment] 03/10/20 03/10/20 03/10/20 05:30 06:00 06:30 Temperature Pulse Rate 104 H 107 H 112 H Pulse Rate [ From Monitor] Respiratory 15 15 15 Rate Blood Pressure 131/82 131/80 126/81 O2 Sat by Pulse 95 96 98 Oximetry O2 Sat by Pulse Oximetry [ Assessment] 03/10/20 03/10/20 03/10/20 07:00 07:30 08:00 Temperature 98.6 F Pulse Rate 102 H 111 H 120 H Pulse Rate [ 122 H From Monitor] Respiratory 12 14 13 Rate Blood Pressure 121/75 128/81 133/86 O2 Sat by Pulse 95 95 96 Oximetry O2 Sat by Pulse Oximetry [ Assessment] 03/10/20 03/10/20 03/10/20 08:19 08:30 09:00 Temperature Pulse Rate 103 H 109 H 121 H Pulse Rate [ From Monitor] Respiratory 11 L 12 18 Rate Blood Pressure 133/86 134/81 126/80 O2 Sat by Pulse 97 95 97 Oximetry O2 Sat by Pulse Oximetry [ Assessment] 03/10/20 03/10/20 03/10/20 09:13 09:30 10:00 Temperature Pulse Rate 114 H 112 H 103 H Pulse Rate [ From Monitor] Respiratory 16 17 Rate Blood Pressure 126/80 134/82 136/85 O2 Sat by Pulse 95 95 Oximetry O2 Sat by Pulse Oximetry [ Assessment] 03/10/20 03/10/20 03/10/20 10:30 11:00 11:30 Temperature Pulse Rate 106 H 100 H 102 H Pulse Rate [ From Monitor] Respiratory 16 12 10 L Rate Blood Pressure 134/81 143/90 145/92 O2 Sat by Pulse 96 96 96 Oximetry O2 Sat by Pulse Oximetry [ Assessment] 03/10/20 03/10/20 03/10/20 11:57 12:00 12:30 Temperature 99.4 F Pulse Rate 106 H 109 H 103 H Pulse Rate [ 109 H From Monitor] Respiratory 15 12 14 Rate Blood Pressure 145/92 140/91 134/88 O2 Sat by Pulse 98 98 95 Oximetry O2 Sat by Pulse 97 Oximetry [ Assessment] 03/10/20 03/10/20 03/10/20 13:00 13:30 14:00 Temperature Pulse Rate 108 H 110 H 113 H Pulse Rate [ From Monitor] Respiratory 17 18 20 Rate Blood Pressure 141/90 153/99 152/102 O2 Sat by Pulse 95 97 96 Oximetry O2 Sat by Pulse Oximetry [ Assessment] 03/10/20 03/10/20 03/10/20 14:30 15:00 15:52 Temperature Pulse Rate 118 H 115 H Pulse Rate [ From Monitor] Respiratory 15 21 14 Rate Blood Pressure 148/98 150/100 O2 Sat by Pulse 96 96 Oximetry O2 Sat by Pulse Oximetry [ Assessment] 03/10/20 03/10/20 16:21 16:24 Temperature Pulse Rate 107 H Pulse Rate [ From Monitor] Respiratory 11 L Rate Blood Pressure 122/79 O2 Sat by Pulse 95 Oximetry O2 Sat by Pulse 95 Oximetry [ Assessment] - Labs CBC & Chem 7: 03/10/20 06:14 03/10/20 06:14 Labs: Abnormal lab results 03/09/20 03/10/20 03/10/20 Range/Units 17:51 00:25 05:41 WBC (4.5-11.0) K/mm3 RBC (3.65-5.03) M/mm3 Hgb (11.8-15.2) gm/dl Hct (35.5-45.6) % RDW (13.2-15.2) % Plt Count (140-440) K/mm3 Seg Neuts % (Manual) (40.0-70.0) % Lymphocytes % (Manual) (13.4-35.0) % Seg Neutrophils # Man (1.8-7.7) K/mm3 Lymphocytes # (Manual) (1.2-5.4) K/mm3 Sodium (137-145) mmol/L Carbon Dioxide (22-30) mmol/L BUN (9-20) mg/dL Creatinine (0.8-1.3) mg/dL Glucose (75-100) mg/dL POC Glucose 127 H 128 H 153 H (70-105) mg/dL 03/10/20 03/10/20 03/10/20 Range/Units 06:14 06:14 12:02 WBC 18.3 H (4.5-11.0) K/mm3 RBC 3.45 L (3.65-5.03) M/mm3 Hgb 9.5 L (11.8-15.2) gm/dl Hct 29.5 L (35.5-45.6) % RDW 16.1 H (13.2-15.2) % Plt Count 494 H (140-440) K/mm3 Seg Neuts % (Manual) 95.0 H (40.0-70.0) % Lymphocytes % (Manual) 1.0 L (13.4-35.0) % Seg Neutrophils # Man 17.4 H (1.8-7.7) K/mm3 Lymphocytes # (Manual) 0.2 L (1.2-5.4) K/mm3 Sodium 149 H (137-145) mmol/L Carbon Dioxide 35 H (22-30) mmol/L BUN 34 H (9-20) mg/dL Creatinine 0.2 L D (0.8-1.3) mg/dL Glucose 177 H (75-100) mg/dL POC Glucose 151 H (70-105) mg/dL HEART Score - HEART Score Troponin: Troponin T 0.034 ng/mL (0.00-0.029) H D 02/24/20 19:35
[2020-03-10] MEDS: ENOXAPARIN 40 MG/0.4 ML INJ SUB-Q SCH ×2 (20:37)
[2020-03-11] MEDS: GLYCOPYRROLATE 2 MG TAB PO SCH ×3 (10:13→20:58)
[2020-03-11] MEDS: TAMSULOSIN 0.4 MG CAP PO SCH (10:13)
[2020-03-11] MEDS: METOPROLOL TARTRATE 25 MG TAB PO SCH ×2 (10:13→21:05)
[2020-03-11] MEDS: LANSOPRAZOLE 30 MG SOLUTAB FEEDTUBE SCH (10:13)
--- NOTE | 2020-03-11 12:09 | Progress Note ---
Assessment and Plan --Acute hypoxic hypercapnic respiratory failure; Intubated on mechanical ventilation. Etiology secondary to sepsis, ALS, multifocal pneumonia (Covid negative). S/p trach placement 03/07/20 --ALS; Chronic Continue to provide supportive care --Elevated D-dimers; CTA chest, lower extremity venous Doppler both are negative Lovenox for DVT prophylaxis --Bilateral pneumonia; probably community-acquired Continue cefepime and vancomycin ID recommendations appreciated --Sepsis secondary to pneumonia Continue cefepime and vancomycin --Elevated troponin; Serial cardiac enzymes, serial EKGs Echocardiogram, cardiology consult if needed --Hypernatremia Trend sodium Free water via feeding tube --Abdominal distention due to bladder outlet obstruction, resolved CT abdomen showed bladder outlet obstruction, urology consulted s/p drake placement by urology on 03/09 --Hypotension possibly from septic shock and bladder outlet obstruction improved following placing drake --Hypernatremia due to hypovolumia free water with TF and place on 1/2NS --DVT prophylaxis; Lovenox The high probability of a clinically significant, sudden or life threatening deterioration of the [cardiac, renal and respiratory] system(s) required my full and direct attention, intervention and personal management. The aggregate critical care time was [34] minutes. This time is in addition to time spent performing reported procedures but includes the following: [x] Data Review and interpretation [x] Patient assessment and monitoring of vital signs [x] Documentation [x] Medication orders and management Brief history: 59-year-old male patient with significant past medical history of ALS, presented to ED with worsening shortness of breath since the morning [employer]. Patient was on a trilogy machine for breathing 18/11. EMS arrived, patient had O2 sats in the 80s. EMS attempted to place patient on their CPAP machine, h owever patient did not tolerate. Patient was admitted to the ICU with diagnosis of acute hypoxic respiratory failure and placed on BiPAP. Patient initially tolerated but later deteriorated with respiratory status. CTA chest showed no PE but significant for bilateral pneumonia. Doppler ultrasound also negative for DVT. COVID-19 test ordered. Due to persistent hypoxia, patient was intubated on 02/26/2020 at 1500. Patient now on mechanical ventilation in the ICU s/p trach placement today. Daily course: 02/26/2020. Blood cultures are negative x48 hours and Covid testing negative as well. Continue antibiotics per ID recommendations for community-acquired bilateral pneumonia. Cardiology consultation for elevated troponin. Check echocardiogram. 02/27/2020. Events of yesterday noted with asystole following V. fib arrest. Patient currently on AC mode rate 20, tidal volume 400, FiO2 50% and a PEEP of 6. Follow-up echocardiogram for elevated troponin. Cardiology suspects NSTEMI Type 2 in the setting of acute resp failure. Chest CTA and BLE Dopplers neg. we will discontinue Decadron given the Covid PCR is negative. 02/28/2020. Spoke with the sister Felisa Eli who is the power of immigration attorney regarding advanced directives and she instructed me that she would like to continue with aggressive care at this time. I informed her of the guarded prognosis and high mortality/morbidity and she voiced understanding. Patient currently with AC mode ventilation rate 18, tidal volume 400, FiO2 40% and a PEEP of 6. Continue antibiotics for pneumonia. ID previously consulted. Also consult neurology with regards to ALS. 02/29/2020; patient is intubated and on CPAP patient is alert and oriented. Patient has ALS. Dr. Álvarez spoke with his sister and she wants aggressive care. Continue antibiotics for pneumonia. Neurology consulted for ALS. Prognosis poor 03/01/2020; patient is intubated and on CPAP, patient is alert and oriented. I spoke with his 2 sisters about the management plan. 03/02/2020; patient is intubated and on CPAP. Patient was alert and oriented. I spoke with Dr. mohr and he thinks patient may need mechanical ventilation, likely his disease progressed. Dr. Flowers did debridement this morning. 03/03/2020; patient is intubated and on CPAP, patient was on trilogy and BiPAP at home. Patient has ALS. on spontaneous breathing trial. Patient is alert and oriented but quadriplegic. Patient has severe bilateral pneumonia and is on cefepime and Vanco, ID is following. Patient has sacral decubitus ulcer and debridement was done by Dr. Flowers and there is no osteomyelitis. 03/05. Patient still on broad-spectrum antibiotics. Status post sacral decubitus ulcer debridements-no osteomyelitis. Patient is on AC 25/400/30% PEEP 5. No blood gas results today. 03/06. Plan for tracheostomy by surgery. Still remains intubated. Labs reviewe d-sodium 150. Started on free water 200 every 8hr. trend sodium. 03/07: s/p trach placement today, patient placed back on mechanical ventilation with trach. Plan to resume tube feeding with NG tube. Continue to monitor vitals, monitor BMP. 03/08: Patient noted to have distended abdomen with low urinary output. Obtain bladder scan rule out urine retention, UA and urine culture, continue to follow clinically. 03/09: Patient noted to have low blood pressure with SBP as low as 70s. Ordered for 500 mils normal saline bolus. CT abdomen showed bladder outlet obstruction, urology consulted. 03/10: placed on drake by urology o/n, improved urine outpt. cont to monitor BMP. resuded TF - cont free water with TF. wean off from vent as tolerated. 03/11: Vitals stable. cont TF, wean off from vent as tolerated. start on 1/2 NS for hypernatremia - follow BMP Subjective Date of service: 03/11/20 Principal diagnosis: Ac on Ch Hypercapnic & hypoxemic Resp Failure; Severe Sepsis; Jamar PNA; ALS Interval history: Patient seen and examined Remains on mechanical ventilation with trach tube Discussed with RN at the bedside Vitals reviewed -BP stable Objective - Exam Narrative Exam: GENERAL: Awake. Intubated with trach tube HEAD: No signs of head trauma. EYES: Pupils are equal. Extraocular motions intact. EARS: Hearing grossly intact. MOUTH: Oropharynx is normal. NECK: No adenopathy, no JVD. CHEST: Coarse breath sounds bilaterally CARDIAC: Regular rate and rhythm. S1 and S2, without murmurs, gallops, or rubs. VASCULAR: No Edema. Peripheral pulses normal and equal in all extremities. ABDOMEN: Soft, non tender and nondistended. Bowel Sounds normal. NEUROLOGIC EXAM: Awake, paraplegic SKIN: No obvious lesions - Constitutional Vitals: Vital Signs - 12hr 03/11/20 03/11/20 03/11/20 00:30 01:00 01:30 Temperature Pulse Rate 115 H 111 H 108 H Pulse Rate [ 111 H From Monitor] Respiratory 13 14 15 Rate Blood Pressure 122/86 126/81 126/84 O2 Sat by Pulse 98 97 98 Oximetry O2 Sat by Pulse Oximetry [ Assessment] 03/11/20 03/11/20 03/11/20 02:00 02:30 03:00 Temperature Pulse Rate 106 H 107 H 108 H Pulse Rate [ From Monitor] Respiratory 13 13 13 Rate Blood Pressure 126/86 125/88 138/88 O2 Sat by Pulse 97 97 97 Oximetry O2 Sat by Pulse Oximetry [ Assessment] 03/11/20 03/11/20 03/11/20 03:14 03:23 03:30 Temperature 99.4 F Pulse Rate 104 H Pulse Rate [ 111 H From Monitor] Respiratory 15 17 Rate Blood Pressure 133/92 O2 Sat by Pulse 94 98 Oximetry O2 Sat by Pulse Oximetry [ Assessment] 03/11/20 03/11/20 03/11/20 03:34 03:47 04:00 Temperature Pulse Rate 102 H 112 H Pulse Rate [ From Monitor] Respiratory 19 Rate Blood Pressure 133/92 140/94 O2 Sat by Pulse 98 98 Oximetry O2 Sat by Pulse 98 Oximetry [ Assessment] 03/11/20 03/11/20 03/11/20 04:30 05:00 05:30 Temperature Pulse Rate 105 H 107 H 105 H Pulse Rate [ From Monitor] Respiratory 15 15 13 Rate Blood Pressure 137/90 140/91 143/90 O2 Sat by Pulse 97 98 97 Oximetry O2 Sat by Pulse Oximetry [ Assessment] 03/11/20 03/11/20 03/11/20 05:48 06:00 06:30 Temperature Pulse Rate 105 H 107 H 110 H Pulse Rate [ From Monitor] Respiratory 14 21 Rate Blood Pressure 137/86 143/88 O2 Sat by Pulse 94 97 98 Oximetry O2 Sat by Pulse Oximetry [ Assessment] 03/11/20 03/11/20 03/11/20 07:00 07:30 07:55 Temperature Pulse Rate 114 H 110 H 106 H Pulse Rate [ From Monitor] Respiratory 17 13 14 Rate Blood Pressure 136/88 144/87 144/87 O2 Sat by Pulse 97 97 100 Oximetry O2 Sat by Pulse Oximetry [ Assessment] 03/11/20 03/11/20 03/11/20 08:00 08:30 09:00 Temperature 100.4 F H Pulse Rate 107 H 103 H 95 H Pulse Rate [ From Monitor] Respiratory 17 13 12 Rate Blood Pressure 136/85 141/84 145/87 O2 Sat by Pulse 99 97 96 Oximetry O2 Sat by Pulse Oximetry [ Assessment] 03/11/20 03/11/20 03/11/20 09:30 10:00 10:13 Temperature Pulse Rate 103 H 110 H 92 H Pulse Rate [ From Monitor] Respiratory 13 20 Rate Blood Pressure 136/86 151/85 151/85 O2 Sat by Pulse 96 96 Oximetry O2 Sat by Pulse Oximetry [ Assessment] 03/11/20 03/11/20 03/11/20 10:30 11:00 11:50 Temperature 99.5 F Pulse Rate 99 H 90 Pulse Rate [ From Monitor] Respiratory 12 13 Rate Blood Pressure 145/91 146/85 O2 Sat by Pulse 96 95 Oximetry O2 Sat by Pulse Oximetry [ Assessment] - Labs CBC & Chem 7: 03/12/20 04:39 03/12/20 04:39 Labs: Abnormal lab results 03/10/20 03/10/20 03/11/20 Range/Units 17:41 23:53 05:02 POC Glucose 168 H 142 H 146 H (70-105) mg/dL 03/11/20 Range/Units 11:30 POC Glucose 248 H (70-105) mg/dL HEART Score - HEART Score Troponin: Troponin T 0.034 ng/mL (0.00-0.029) H D 02/24/20 19:35
[2020-03-11] MEDS: SODIUM CHLORIDE 0.45% 1000 ML 1,000 ML IV SCH (13:50)
[2020-03-11 14:33] LABS: Hematocrit 25.8 % (35.5-45.6); Hemoglobin 8.7 gm/dl (11.8-15.2); Mean Corpuscular HGB Conc 34 % (32-34); Mean Corpuscular Volume 85 fl (84-94); Platelet Count 345 K/mm3 (140-440); Red Blood Count 3.04 M/mm3 (3.65-5.03); Red Cell Distribution Width 15.6 % (13.2-15.2)
[2020-03-11 14:44] LABS: BUN/Creatinine Ratio 95; Blood Urea Nitrogen 19 mg/dL (9-20); Calcium 8.7 mg/dL (8.4-10.2); Hemolysis Index 3
--- NOTE | 2020-03-11 15:51 | Progress Note ---
Assessment and Plan Cultures: Blood culture no growth today SARS CoV2 PCR negative Sputum culture 03/03/2020 Stenotrophomonas Blood culture 03/03/2020 no growth today Blood culture 03/07/2020 no growth today Urine culture 03/08/2020 Izyz albicans Assessment: 59 years old female with history of ALS with chronic respiratory elvira lure on home trilogy BiPAP, admitted on 02/24/2020 due to worsening shortness of breath for 24 hours: #Severe sepsis: likely due to bilateral pneumonia +/- left gluteal necrotic pressure ulcer. Fever resolved, leukocytosis improving #Severe bilateral pneumonia: Likely community-acquired pneumonia. Procalcitonin elevated-1.13. CTA shows no PE but multifocal pneumonia with predominance left lower lobe. No DVT on US. Elevated D-dimer -1311. SARS-CoV-2 PCR negative. Sputum culture +Stenotrophomonas. CRP 26-->4. Prcal 1.1-->1.6. Repeat CXR near complete atelectasis resolved. Completed cefepime and vancomycin on 03/06/2020 #Left gluteal necrotic pressure ulcer: S/p debridement, not infected per wound care. #Acute on chronic mixed respiratory failure: Intubated, re intubated overnight. #ALS #Rule out urinary retention: straight cath no urine obtained, UA 03/08 w/o evidence of UTI. CT shows markedly distended bladder. Evaluated by urology, Reardon placed. Recommendations: -Monitor leukocytosis -Continue Levaquin 750 mg IV/PO daily for total 7 days for Stenotrophomonas pneumonia- day 6 of 7 -procalcitonin improving from 1.6-->0.16 -Monitor fever and leukocytosis -Urine culture with Izzy albicans likely overgrowth, will monitor Will follow Diana Maravilla MD Infectious Diseases Service Agent [facility] M [phone] O [phone] Subjective Date of service: 03/11/20 Principal diagnosis: Ac on Ch Hypercapnic & hypoxemic Resp Failure; Severe Sepsis; Jamar PNA; ALS Interval history: Patient remains afebrile, remains on the ventilator via trach, T-piece this morning. Objective - Exam Narrative Exam: General appearance: Alert on the ventilator Eyes: anicteric sclerae, moist conjunctivae; no lid-lag; PERRLA HENT: Normocephalic, Atraumatic; normal external ears, nares open, oropharynx limited , NG tube in place Neck: Trach in place Lungs: Bilateral rhonchi CV: Tachycardic Abdomen: Soft, nontender Extremities: no edema, no cyanosis Skin: No rash. Left buttock wound covered with surgical dressing Psych: no agitated Neuro: Alert on the ventilator Reardon in place - Constitutional Vitals: Vital Signs Temp Pulse Resp BP Pulse Ox 99.5 F 99 H 12 120/77 98 03/11/20 11:50 03/11/20 14:00 03/11/20 14:00 03/11/20 14:00 03/11/20 14:00 Temperature -Last 24 Hours Temperature 99.5 F Temperature 100.4 F Temperature 99.4 F Temperature 98.1 F Temperature 98 F Temperature 98.1 F - Labs CBC & Chem 7: 03/11/20 14:01 03/11/20 14:01 Labs: Abnormal lab results 03/10/20 03/10/20 03/11/20 Range/Units 17:41 23:53 05:02 WBC (4.5-11.0) K/mm3 RBC (3.65-5.03) M/mm3 Hgb (11.8-15.2) gm/dl Hct (35.5-45.6) % RDW (13.2-15.2) % Sodium (137-145) mmol/L Carbon Dioxide (22-30) mmol/L Creatinine (0.8-1.3) mg/dL Glucose (75-100) mg/dL POC Glucose 168 H 142 H 146 H (70-105) mg/dL 03/11/20 03/11/20 03/11/20 Range/Units 11:30 14:01 14:01 WBC 19.7 H (4.5-11.0) K/mm3 RBC 3.04 L (3.65-5.03) M/mm3 Hgb 8.7 L (11.8-15.2) gm/dl Hct 25.8 L (35.5-45.6) % RDW 15.6 H (13.2-15.2) % Sodium 151 H (137-145) mmol/L Carbon Dioxide 37 H (22-30) mmol/L Creatinine < 0.2 L (0.8-1.3) mg/dL Glucose 171 H (75-100) mg/dL POC Glucose 248 H (70-105) mg/dL
--- NOTE | 2020-03-11 16:44 | Progress Note ---
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 Respiratory Failure Severe Sepsis with Shock Bilateral Pneumonia (Possible aspiration) History of ALS on Trilogy Oropharyngeal Dysphagia PUI-COVID Acute toxic metabolic encephalopathy Elevated D-dimer Elevated troponin possibly type 2 ischemia - repeat CXR in am +/- broncoscopy for mucus plugging / large volume atelectasis - continue daytime t-piece trials as tolerated (PSV if fails) - continue to rest on AC qhs - continue Robinul & scopolamine for secretion control - continue care as below otherwise; - continue daily SAT and SBT assessment as tolerated - wound care per RN/WCN - continue Scopolamine patch for secretion control - wean supplemental oxygen for target O2 sat's > 92% acutely - bronchodilators with pulmonary hygiene per RT - VAP bundle addressed - continue lung protective strategies - continue bronchodilators with pulmonary hygiene per RT - wean per pulmonary driven protocols otherwise - sedation prn for target RASS 0 to -1 - empiric antiinfectives per ID rec's (Rocephin and Zithromax) - COVID-19 isolation (Airborne & Contact) - empiric Dexamethasone - follow COVID-19 test results - trend inflammatory markers to aid clinical decision making - enteral nutrition at goal rate as tolerated - Aspiration precautions - accuchecks with glycemic control per SSI (While critically ill target blood glucose of 140-180 mg/dL; avoid hypoglycemia) - avoid nephrotoxins, renally dose all medications - avoid benzodiazepine's, reduce the possibility of delirium - prn analgesia per CPOT score - Maintenance of sleep-wake cycle, avoid delirium - aspiration precautions - G.I. & VTE prophylaxis - PT/OT/ROM exercises - mobility protocols for pressure ulcer prophylaxis - Monitor hemodynamics closely - continue other care per attending / other consultants - discharge planning ongoing concurrently .... Re-evaluate in am & prn CONDITION: CRITICAL PROGNOSIS: GUARDED CODE STATUS: FULL CODE The high probability of a clinically significant, sudden or life-threatening deterioration of the [respiratory, cardiovascular & neurologic] system(s) required my full and direct attention, intervention and personal management. The aggregate critical care time was [36] minutes without overlap. Time includes spent on; [x] Data Review and interpretation [x] Patient assessment and monitoring of vital signs [x] Documentation [x] Medication orders and management Subjective Date of service: 03/11/20 Principal diagnosis: Ac on Ch Hypercapnic & hypoxemic Resp Failure; Severe Sepsis; Jamar PNA; ALS Interval history: Patient is seen today for: Acute on Chronic Hypercapnic & hypoxemic Respiratory Failure; Severe Sepsis with Shock; Bilateral Pneumonia (Possible aspiration); History of ALS on Trilogy; PUI-COVID; Acute toxic metabolic encephalopathy Seen and examined at bedside; 24hour events reviewed; nursing and respiratory care staff consulted; no adverse overnight events reported to me; resting in bed; remains on MVS; failed t-piece trial quickly today but tolerating PSV (01/31); he denies acute chest pains; No N/V/F/C Objective Vital Signs - 12hr 03/11/20 03/11/20 03/11/20 05:00 05:30 05:48 Temperature Pulse Rate 107 H 105 H 105 H Respiratory 15 13 Rate Blood Pressure 140/91 143/90 O2 Sat by Pulse 98 97 94 Oximetry O2 Sat by Pulse Oximetry [ Assessment] 03/11/20 03/11/20 03/11/20 06:00 06:30 07:00 Temperature Pulse Rate 107 H 110 H 114 H Respiratory 14 21 17 Rate Blood Pressure 137/86 143/88 136/88 O2 Sat by Pulse 97 98 97 Oximetry O2 Sat by Pulse Oximetry [ Assessment] 03/11/20 03/11/20 03/11/20 07:30 07:55 08:00 Temperature 100.4 F H Pulse Rate 110 H 106 H 107 H Respiratory 13 14 17 Rate Blood Pressure 144/87 144/87 136/85 O2 Sat by Pulse 97 100 99 Oximetry O2 Sat by Pulse Oximetry [ Assessment] 03/11/20 03/11/20 03/11/20 08:30 09:00 09:30 Temperature Pulse Rate 103 H 95 H 103 H Respiratory 13 12 13 Rate Blood Pressure 141/84 145/87 136/86 O2 Sat by Pulse 97 96 96 Oximetry O2 Sat by Pulse Oximetry [ Assessment] 03/11/20 03/11/20 03/11/20 10:00 10:13 10:30 Temperature Pulse Rate 110 H 92 H 99 H Respiratory 20 12 Rate Blood Pressure 151/85 151/85 145/91 O2 Sat by Pulse 96 96 Oximetry O2 Sat by Pulse Oximetry [ Assessment] 03/11/20 03/11/20 03/11/20 11:00 11:30 11:50 Temperature 99.5 F Pulse Rate 90 90 Respiratory 13 12 Rate Blood Pressure 146/85 140/84 O2 Sat by Pulse 95 95 Oximetry O2 Sat by Pulse Oximetry [ Assessment] 03/11/20 03/11/20 03/11/20 12:00 12:16 12:23 Temperature Pulse Rate 96 H 108 H Respiratory 16 19 Rate Blood Pressure 146/81 146/81 O2 Sat by Pulse 96 98 Oximetry O2 Sat by Pulse 99 Oximetry [ Assessment] 03/11/20 03/11/20 03/11/20 12:30 13:00 13:30 Temperature Pulse Rate 115 H 105 H 98 H Respiratory 12 14 13 Rate Blood Pressure 101/67 123/80 122/78 O2 Sat by Pulse 97 97 97 Oximetry O2 Sat by Pulse Oximetry [ Assessment] 03/11/20 03/11/20 03/11/20 14:00 16:00 16:35 Temperature 99.0 F Pulse Rate 99 H 102 H Respiratory 12 16 Rate Blood Pressure 120/77 134/90 O2 Sat by Pulse 98 99 Oximetry O2 Sat by Pulse Oximetry [ Assessment] Constitutional: no acute distress, other (thin middle aged male with mildly increased respiratory effort at rest on MVS) Eyes: non-icteric ENT: oropharynx moist, other (S/P Tracheostomy) Neck: supple, no lymphadenopathy, no JVD Effort: mildly labored Ascultation: Bilateral: clear, diminished breath sounds Percussion: Bilateral: not dull Cardiovascular: regular rate and rhythm, other (S1,S2, no murmurs) Gastrointestinal: normoactive bowel sounds, soft, non-tender, non-distended, other (+ distended but non tender suprapubis) Integumentary: normal, decubitus ulcer (sacral / gluteal) Extremities: no cyanosis, no edema, pulses normal, other (atrophic looking limbs) Neurologic: pupils equal and round, other (motor strength in extremities 1-2/5) Psychiatric: mood appropriate, affect normal CBC and BMP: 03/11/20 14:01 03/11/20 14:01 ABG, PT/INR, D-dimer: ABG ABG pH 7.371 (7.320-7.450) 03/08/20 12:34 POC ABG pCO2 63.1 mmHg (32.0-48.0) H 03/08/20 12:34 ABG pCO2 60.1 mm Hg 03/06/20 04:34 POC ABG pO2 90.5 mmHg (83-108) 03/08/20 12:34 ABG pO2 88.6 mm Hg (80.0-90.0) 03/06/20 04:34 POC ABG HCO3 35.7 03/08/20 12:34 ABG O2 Saturation 97.0 % (95.0-99.0) 03/06/20 04:34 PT/INR, D-dimer PT 15.6 Sec. (12.2-14.9) H 02/24/20 09:19 INR 1.21 (0.87-1.13) H 02/24/20 09:19 D-Dimer 1311.96 ng/mlDDU (0-234) H 02/24/20 09:19 Abnormal lab findings: Abnormal Labs 02/24/20 02/24/20 02/24/20 09:19 09:19 09:19 WBC 20.2 H RBC 5.05 H Hgb Hct MCV MCH RDW 15.3 H Plt Count Lymph % (Auto) [place] # (Auto) Seg Neutrophils % Seg Neuts % (Manual) 86.0 H Lymphocytes % (Manual) 1.0 L Monocytes % (Manual) Seg Neutrophils # Seg Neutrophils # Man 17.4 H Lymphocytes # (Manual) 0.2 L Monocytes # (Manual) Eosinophils # (Manual) PT 15.6 H INR 1.21 H D-Dimer 1311.96 H ABG pH POC ABG pCO2 POC ABG pO2 ABG pO2 ABG HCO3 ABG O2 Saturation ABG Base Excess ABG Hemoglobin ABG Oxyhemoglobin ABG Potassium ABG Glucose Oxyhemoglobin Carboxyhemoglobin Sodium 135 L Potassium 3.2 L Chloride 92.2 L Carbon Dioxide BUN 6 L Creatinine < 0.2 L Glucose 124 H POC Glucose Ferritin Total Bilirubin 2.30 H Alkaline Phosphatase 132 H Lactate Dehydrogenase Troponin T 0.080 H C-Reactive Protein Total Protein Albumin 3.6 L Prealbumin LDL Cholesterol Direct 41 L Arterial Blood Glucose Arterial Blood Ionized Calcium Urine WBC (Auto) 02/24/20 02/24/20 02/24/20 09:19 09:58 10:01 WBC RBC Hgb Hct MCV MCH RDW Plt Count Lymph % (Auto) [place] # (Auto) Seg Neutrophils % Seg Neuts % (Manual) Lymphocytes % (Manual) Monocytes % (Manual) Seg Neutrophils # Seg Neutrophils # Man Lymphocytes # (Manual) Monocytes # (Manual) Eosinophils # (Manual) PT INR D-Dimer ABG pH 7.176 L* POC ABG pCO2 POC ABG pO2 ABG pO2 91.2 H ABG HCO3 ABG O2 Saturation ABG Base Excess -4.6 L ABG Hemoglobin ABG Oxyhemoglobin ABG Potassium ABG Glucose Oxyhemoglobin 92.6 L Carboxyhemoglobin Sodium Potassium Chloride Carbon Dioxide BUN Creatinine Glucose POC Glucose Ferritin 1715.0 H Total Bilirubin Alkaline Phosphatase Lactate Dehydrogenase 303 H Troponin T C-Reactive Protein 26.10 H Total Protein Albumin Prealbumin LDL Cholesterol Direct Arterial Blood Glucose Arterial Blood Ionized Calcium Urine WBC (Auto) 02/24/20 02/24/20 02/24/20 11:52 13:45 19:35 WBC RBC Hgb Hct MCV MCH RDW Plt Count Lymph % (Auto) [place] # (Auto) Seg Neutrophils % Seg Neuts % (Manual) Lymphocytes % (Manual) Monocytes % (Manual) Seg Neutrophils # Seg Neutrophils # Man Lymphocytes # (Manual) Monocytes # (Manual) Eosinophils # (Manual) PT INR D-Dimer ABG pH 7.051 L* 7.300 L POC ABG pCO2 POC ABG pO2 ABG pO2 94.7 H 75.1 L ABG HCO3 18.0 L ABG O2 Saturation 93.5 L ABG Base Excess -6.8 L -7.8 L ABG Hemoglobin 13.2 L 11.9 L ABG Oxyhemoglobin ABG Potassium ABG Glucose Oxyhemoglobin 91.0 L 92.7 L Carboxyhemoglobin Sodium Potassium Chloride Carbon Dioxide BUN Creatinine Glucose POC Glucose Ferritin Total Bilirubin Alkaline Phosphatase Lactate Dehydrogenase Troponin T 0.034 H D C-Reactive Protein Total Protein Albumin Prealbumin LDL Cholesterol Direct Arterial Blood Glucose Arterial Blood Ionized Calcium Urine WBC (Auto) 02/25/20 02/25/20 02/25/20 04:00 04:00 12:26 WBC 22.9 H RBC Hgb Hct MCV 83 L MCH 27 L RDW Plt Count 468 H Lymph % (Auto) [place] # (Auto) Seg Neutrophils % Seg Neuts % (Manual) 89.0 H Lymphocytes % (Manual) 7.0 L Monocytes % (Manual) Seg Neutrophils # Seg Neutrophils # Man 20.4 H Lymphocytes # (Manual) Monocytes # (Manual) Eosinophils # (Manual) PT INR D-Dimer ABG pH POC ABG pCO2 POC ABG pO2 ABG pO2 ABG HCO3 ABG O2 Saturation ABG Base Excess ABG Hemoglobin ABG Oxyhemoglobin ABG Potassium 2.6 L ABG Glucose 142 H Oxyhemoglobin Carboxyhemoglobin Sodium Potassium 3.2 L Chloride Carbon Dioxide 18 L BUN Creatinine 0.2 L Glucose 114 H POC Glucose Ferritin Total Bilirubin Alkaline Phosphatase Lactate Dehydrogenase Troponin T C-Reactive Protein Total Protein Albumin 3.5 L Prealbumin LDL Cholesterol Direct Arterial Blood Glucose 142 H Arterial Blood Ionized Calcium Urine WBC (Auto) 02/26/20 02/26/20 02/26/20 15:58 17:00 23:43 WBC RBC Hgb Hct MCV MCH RDW Plt Count Lymph % (Auto) [place] # (Auto) Seg Neutrophils % Seg Neuts % (Manual) Lymphocytes % (Manual) Monocytes % (Manual) Seg Neutrophils # Seg Neutrophils # Man Lymphocytes # (Manual) Monocytes # (Manual) Eosinophils # (Manual) PT INR D-Dimer ABG pH 7.502 H POC ABG pCO2 POC ABG pO2 213.6 H ABG pO2 ABG HCO3 ABG O2 Saturation ABG Base Excess ABG Hemoglobin ABG Oxyhemoglobin 99.2 H ABG Potassium 2.9 L ABG Glucose 160 H Oxyhemoglobin Carboxyhemoglobin 0.4 L Sodium Potassium Chloride Carbon Dioxide BUN Creatinine Glucose POC Glucose 189 H 120 H Ferritin Total Bilirubin Alkaline Phosphatase Lactate Dehydrogenase Troponin T C-Reactive Protein Total Protein Albumin Prealbumin LDL Cholesterol Direct Arterial Blood Glucose 160 H Arterial Blood Ionized Calcium 4.5 L Urine WBC (Auto) 02/27/20 02/27/20 02/27/20 05:00 07:04 17:45 WBC RBC Hgb Hct MCV MCH RDW Plt Count Lymph % (Auto) [place] # (Auto) Seg Neutrophils % Seg Neuts % (Manual) Lymphocytes % (Manual) Monocytes % (Manual) Seg Neutrophils # Seg Neutrophils # Man Lymphocytes # (Manual) Monocytes # (Manual) Eosinophils # (Manual) PT INR D-Dimer ABG pH 7.524 H POC ABG pCO2 POC ABG pO2 ABG pO2 ABG HCO3 ABG O2 Saturation ABG Base Excess ABG Hemoglobin ABG Oxyhemoglobin ABG Potassium 3.0 L ABG Glucose 143 H Oxyhemoglobin Carboxyhemoglobin Sodium Potassium Chloride Carbon Dioxide BUN Creatinine Glucose POC Glucose 154 H 175 H Ferritin Total Bilirubin Alkaline Phosphatase Lactate Dehydrogenase Troponin T C-Reactive Protein Total Protein Albumin Prealbumin LDL Cholesterol Direct Arterial Blood Glucose 143 H Arterial Blood Ionized Calcium Urine WBC (Auto) 02/27/20 02/28/20 02/28/20 Unknown 00:21 04:15 WBC 18.7 H RBC Hgb Hct MCV MCH RDW Plt Count Lymph % (Auto) 8.7 L [place] # (Auto) 1.2 H Seg Neutrophils % 84.6 H Seg Neuts % (Manual) Lymphocytes % (Manual) Monocytes % (Manual) Seg Neutrophils # 15.9 H Seg Neutrophils # Man Lymphocytes # (Manual) Monocytes # (Manual) Eosinophils # (Manual) PT INR D-Dimer ABG pH POC ABG pCO2 POC ABG pO2 ABG pO2 ABG HCO3 ABG O2 Saturation ABG Base Excess ABG Hemoglobin ABG Oxyhemoglobin ABG Potassium ABG Glucose Oxyhemoglobin Carboxyhemoglobin Sodium Potassium 2.9 L* Chloride Carbon Dioxide 33 H D BUN Creatinine < 0.2 L Glucose 157 H POC Glucose 134 H Ferritin Total Bilirubin Alkaline Phosphatase Lactate Dehydrogenase Troponin T C-Reactive Protein Total Protein Albumin Prealbumin LDL Cholesterol Direct Arterial Blood Glucose Arterial Blood Ionized Calcium Urine WBC (Auto) 02/28/20 02/28/20 02/28/20 04:15 05:16 05:39 WBC RBC Hgb Hct MCV MCH RDW Plt Count Lymph % (Auto) [place] # (Auto) Seg Neutrophils % Seg Neuts % (Manual) Lymphocytes % (Manual) Monocytes % (Manual) Seg Neutrophils # Seg Neutrophils # Man Lymphocytes # (Manual) Monocytes # (Manual) Eosinophils # (Manual) PT INR D-Dimer ABG pH POC ABG pCO2 POC ABG pO2 ABG pO2 142.9 H ABG HCO3 34.1 H ABG O2 Saturation ABG Base Excess 8.3 H ABG Hemoglobin ABG Oxyhemoglobin ABG Potassium ABG Glucose Oxyhemoglobin Carboxyhemoglobin Sodium 151 H Potassium Chloride Carbon Dioxide 32 H BUN Creatinine 0.2 L Glucose 167 H POC Glucose 138 H Ferritin Total Bilirubin Alkaline Phosphatase Lactate Dehydrogenase Troponin T C-Reactive Protein Total Protein Albumin Prealbumin LDL Cholesterol Direct Arterial Blood Glucose Arterial Blood Ionized Calcium Urine WBC (Auto) 02/28/20 02/28/20 02/28/20 11:05 11:33 12:54 WBC RBC Hgb Hct MCV MCH RDW Plt Count Lymph % (Auto) [place] # (Auto) Seg Neutrophils % Seg Neuts % (Manual) Lymphocytes % (Manual) Monocytes % (Manual) Seg Neutrophils # Seg Neutrophils # Man Lymphocytes # (Manual) Monocytes # (Manual) Eosinophils # (Manual) PT INR D-Dimer ABG pH POC ABG pCO2 POC ABG pO2 ABG pO2 ABG HCO3 ABG O2 Saturation ABG Base Excess ABG Hemoglobin ABG Oxyhemoglobin ABG Potassium ABG Glucose Oxyhemoglobin Carboxyhemoglobin Sodium Potassium Chloride Carbon Dioxide BUN Creatinine Glucose POC Glucose 160 H Ferritin Total Bilirubin Alkaline Phosphatase Lactate Dehydrogenase Troponin T C-Reactive Protein 4.70 H Total Protein Albumin Prealbumin 0.090 L LDL Cholesterol Direct Arterial Blood Glucose Arterial Blood Ionized Calcium Urine WBC (Auto) 02/28/20 02/29/20 02/29/20 17:34 00:44 04:05 WBC 19.6 H RBC Hgb Hct MCV MCH 27 L RDW 15.4 H Plt Count Lymph % (Auto) [place] # (Auto) Seg Neutrophils % Seg Neuts % (Manual) 86.0 H Lymphocytes % (Manual) 7.0 L Monocytes % (Manual) Seg Neutrophils # Seg Neutrophils # Man 16.9 H Lymphocytes # (Manual) Monocytes # (Manual) 1.2 H Eosinophils # (Manual) PT INR D-Dimer ABG pH POC ABG pCO2 POC ABG pO2 ABG pO2 ABG HCO3 ABG O2 Saturation ABG Base Excess ABG Hemoglobin ABG Oxyhemoglobin ABG Potassium ABG Glucose Oxyhemoglobin Carboxyhemoglobin Sodium Potassium Chloride Carbon Dioxide BUN Creatinine Glucose POC Glucose 136 H 156 H Ferritin Total Bilirubin Alkaline Phosphatase Lactate Dehydrogenase Troponin T C-Reactive Protein Total Protein Albumin Prealbumin LDL Cholesterol Direct Arterial Blood Glucose Arterial Blood Ionized Calcium Urine WBC (Auto) 02/29/20 02/29/20 02/29/20 04:05 05:14 05:33 WBC RBC Hgb Hct MCV MCH RDW Plt Count Lymph % (Auto) [place] # (Auto) Seg Neutrophils % Seg Neuts % (Manual) Lymphocytes % (Manual) Monocytes % (Manual) Seg Neutrophils # Seg Neutrophils # Man Lymphocytes # (Manual) Monocytes # (Manual) Eosinophils # (Manual) PT INR D-Dimer ABG pH POC ABG pCO2 54.3 H POC ABG pO2 124.8 H ABG pO2 ABG HCO3 ABG O2 Saturation ABG Base Excess ABG Hemoglobin ABG Oxyhemoglobin ABG Potassium ABG Glucose 185 H Oxyhemoglobin Carboxyhemoglobin Sodium 148 H Potassium Chloride Carbon Dioxide 33 H BUN Creatinine < 0.2 L Glucose 173 H POC Glucose 152 H Ferritin Total Bilirubin Alkaline Phosphatase Lactate Dehydrogenase Troponin T C-Reactive Protein Total Protein Albumin Prealbumin LDL Cholesterol Direct Arterial Blood Glucose 185 H Arterial Blood Ionized Calcium Urine WBC (Auto) 03/01/20 03/01/20 03/01/20 00:00 03:45 04:33 WBC 23.1 H RBC Hgb Hct MCV MCH 27 L RDW 15.3 H Plt Count Lymph % (Auto) [place] # (Auto) Seg Neutrophils % Seg Neuts % (Manual) 92.0 H Lymphocytes % (Manual) 6.0 L Monocytes % (Manual) Seg Neutrophils # Seg Neutrophils # Man 21.3 H Lymphocytes # (Manual) Monocytes # (Manual) Eosinophils # (Manual) 0.5 H PT INR D-Dimer ABG pH 7.492 H POC ABG pCO2 POC ABG pO2 ABG pO2 157.1 H ABG HCO3 32.3 H ABG O2 Saturation ABG Base Excess 8.1 H ABG Hemoglobin 13.2 L ABG Oxyhemoglobin ABG Potassium ABG Glucose Oxyhemoglobin Carboxyhemoglobin Sodium Potassium Chloride Carbon Dioxide BUN Creatinine Glucose POC Glucose 109 H Ferritin Total Bilirubin Alkaline Phosphatase Lactate Dehydrogenase Troponin T C-Reactive Protein Total Protein Albumin Prealbumin LDL Cholesterol Direct Arterial Blood Glucose Arterial Blood Ionized Calcium Urine WBC (Auto) 03/01/20 03/01/20 03/01/20 04:33 05:29 12:32 WBC RBC Hgb Hct MCV MCH RDW Plt Count Lymph % (Auto) [place] # (Auto) Seg Neutrophils % Seg Neuts % (Manual) Lymphocytes % (Manual) Monocytes % (Manual) Seg Neutrophils # Seg Neutrophils # Man Lymphocytes # (Manual) Monocytes # (Manual) Eosinophils # (Manual) PT INR D-Dimer ABG pH POC ABG pCO2 POC ABG pO2 ABG pO2 ABG HCO3 ABG O2 Saturation ABG Base Excess ABG Hemoglobin ABG Oxyhemoglobin ABG Potassium ABG Glucose Oxyhemoglobin Carboxyhemoglobin Sodium 146 H Potassium Chloride Carbon Dioxide 32 H BUN Creatinine < 0.2 L Glucose 120 H POC Glucose 120 H 128 H Ferritin Total Bilirubin Alkaline Phosphatase Lactate Dehydrogenase Troponin T C-Reactive Protein Total Protein Albumin Prealbumin LDL Cholesterol Direct Arterial Blood Glucose Arterial Blood Ionized Calcium Urine WBC (Auto) 03/01/20 03/01/20 03/02/20 17:38 23:46 06:13 WBC RBC Hgb Hct MCV MCH RDW Plt Count Lymph % (Auto) [place] # (Auto) Seg Neutrophils % Seg Neuts % (Manual) Lymphocytes % (Manual) Monocytes % (Manual) Seg Neutrophils # Seg Neutrophils # Man Lymphocytes # (Manual) Monocytes # (Manual) Eosinophils # (Manual) PT INR D-Dimer ABG pH POC ABG pCO2 POC ABG pO2 ABG pO2 ABG HCO3 ABG O2 Saturation ABG Base Excess ABG Hemoglobin ABG Oxyhemoglobin ABG Potassium ABG Glucose Oxyhemoglobin Carboxyhemoglobin Sodium Potassium Chloride Carbon Dioxide BUN Creatinine Glucose POC Glucose 114 H 121 H 120 H Ferritin Total Bilirubin Alkaline Phosphatase Lactate Dehydrogenase Troponin T C-Reactive Protein Total Protein Albumin Prealbumin LDL Cholesterol Direct Arterial Blood Glucose Arterial Blood Ionized Calcium Urine WBC (Auto) 03/02/20 03/02/20 03/03/20 09:47 09:47 10:21 WBC 23.6 H RBC Hgb Hct MCV MCH RDW 15.3 H Plt Count 494 H Lymph % (Auto) [place] # (Auto) Seg Neutrophils % Seg Neuts % (Manual) 85.0 H Lymphocytes % (Manual) 6.0 L Monocytes % (Manual) Seg Neutrophils # Seg Neutrophils # Man 20.1 H Lymphocytes # (Manual) Monocytes # (Manual) 1.7 H Eosinophils # (Manual) PT INR D-Dimer ABG pH POC ABG pCO2 POC ABG pO2 ABG pO2 ABG HCO3 ABG O2 Saturation ABG Base Excess ABG Hemoglobin ABG Oxyhemoglobin ABG Potassium 3.3 L ABG Glucose 158 H Oxyhemoglobin Carboxyhemoglobin Sodium Potassium Chloride Carbon Dioxide BUN Creatinine < 0.2 L Glucose 177 H POC Glucose Ferritin Total Bilirubin Alkaline Phosphatase Lactate Dehydrogenase Troponin T C-Reactive Protein Total Protein Albumin Prealbumin LDL Cholesterol Direct Arterial Blood Glucose 158 H Arterial Blood Ionized Calcium Urine WBC (Auto) 03/03/20 03/04/20 03/04/20 21:30 00:00 12:23 WBC RBC Hgb Hct MCV MCH RDW Plt Count Lymph % (Auto) [place] # (Auto) Seg Neutrophils % Seg Neuts % (Manual) Lymphocytes % (Manual) Monocytes % (Manual) Seg Neutrophils # Seg Neutrophils # Man Lymphocytes # (Manual) Monocytes # (Manual) Eosinophils # (Manual) PT INR D-Dimer ABG pH 7.328 L POC ABG pCO2 POC ABG pO2 ABG pO2 68.4 L ABG HCO3 35.0 H ABG O2 Saturation 93.9 L ABG Base Excess 6.8 H ABG Hemoglobin 12.7 L ABG Oxyhemoglobin ABG Potassium ABG Glucose Oxyhemoglobin 91.9 L Carboxyhemoglobin Sodium Potassium Chloride Carbon Dioxide BUN Creatinine Glucose POC Glucose 187 H 163 H Ferritin Total Bilirubin Alkaline Phosphatase Lactate Dehydrogenase Troponin T C-Reactive Protein Total Protein Albumin Prealbumin LDL Cholesterol Direct Arterial Blood Glucose Arterial Blood Ionized Calcium Urine WBC (Auto) 03/04/20 03/04/20 03/05/20 18:15 21:30 06:02 WBC RBC Hgb Hct MCV MCH RDW Plt Count Lymph % (Auto) [place] # (Auto) Seg Neutrophils % Seg Neuts % (Manual) Lymphocytes % (Manual) Monocytes % (Manual) Seg Neutrophils # Seg Neutrophils # Man Lymphocytes # (Manual) Monocytes # (Manual) Eosinophils # (Manual) PT INR D-Dimer ABG pH 7.297 L POC ABG pCO2 POC ABG pO2 ABG pO2 ABG HCO3 41.0 H ABG O2 Saturation ABG Base Excess 11.0 H ABG Hemoglobin 13.1 L ABG Oxyhemoglobin ABG Potassium ABG Glucose Oxyhemoglobin 94.5 L Carboxyhemoglobin Sodium Potassium Chloride Carbon Dioxide BUN Creatinine Glucose POC Glucose 192 H 127 H Ferritin Total Bilirubin Alkaline Phosphatase Lactate Dehydrogenase Troponin T C-Reactive Protein Total Protein Albumin Prealbumin LDL Cholesterol Direct Arterial Blood Glucose Arterial Blood Ionized Calcium Urine WBC (Auto) 03/05/20 03/05/20 03/06/20 12:09 16:42 00:24 WBC RBC Hgb Hct MCV MCH RDW Plt Count Lymph % (Auto) [place] # (Auto) Seg Neutrophils % Seg Neuts % (Manual) Lymphocytes % (Manual) Monocytes % (Manual) Seg Neutrophils # Seg Neutrophils # Man Lymphocytes # (Manual) Monocytes # (Manual) Eosinophils # (Manual) PT INR D-Dimer ABG pH POC ABG pCO2 POC ABG pO2 ABG pO2 ABG HCO3 ABG O2 Saturation ABG Base Excess ABG Hemoglobin ABG Oxyhemoglobin ABG Potassium ABG Glucose Oxyhemoglobin Carboxyhemoglobin Sodium Potassium Chloride Carbon Dioxide BUN Creatinine Glucose POC Glucose 147 H 114 H 134 H Ferritin Total Bilirubin Alkaline Phosphatase Lactate Dehydrogenase Troponin T C-Reactive Protein Total Protein Albumin Prealbumin LDL Cholesterol Direct Arterial Blood Glucose Arterial Blood Ionized Calcium Urine WBC (Auto) 03/06/20 03/06/20 03/06/20 04:34 05:53 06:08 WBC 25.4 H RBC Hgb 10.5 L Hct 32.7 L MCV MCH 27 L RDW 15.3 H Plt Count 634 H Lymph % (Auto) [place] # (Auto) Seg Neutrophils % Seg Neuts % (Manual) 88.0 H Lymphocytes % (Manual) 2.0 L Monocytes % (Manual) 8.0 H Seg Neutrophils # Seg Neutrophils # Man 22.4 H Lymphocytes # (Manual) 0.5 L Monocytes # (Manual) 2.0 H Eosinophils # (Manual) PT INR D-Dimer ABG pH POC ABG pCO2 POC ABG pO2 ABG pO2 ABG HCO3 37.9 H ABG O2 Saturation ABG Base Excess 11.4 H ABG Hemoglobin 10.6 L ABG Oxyhemoglobin ABG Potassium ABG Glucose Oxyhemoglobin 94.7 L Carboxyhemoglobin Sodium Potassium Chloride Carbon Dioxide BUN Creatinine Glucose POC Glucose 135 H Ferritin Total Bilirubin Alkaline Phosphatase Lactate Dehydrogenase Troponin T C-Reactive Protein Total Protein Albumin Prealbumin LDL Cholesterol Direct Arterial Blood Glucose Arterial Blood Ionized Calcium Urine WBC (Auto) 03/06/20 03/06/20 03/06/20 06:08 12:19 19:10 WBC RBC Hgb Hct MCV MCH RDW Plt Count Lymph % (Auto) [place] # (Auto) Seg Neutrophils % Seg Neuts % (Manual) Lymphocytes % (Manual) Monocytes % (Manual) Seg Neutrophils # Seg Neutrophils # Man Lymphocytes # (Manual) Monocytes # (Manual) Eosinophils # (Manual) PT INR D-Dimer ABG pH POC ABG pCO2 POC ABG pO2 ABG pO2 ABG HCO3 ABG O2 Saturation ABG Base Excess ABG Hemoglobin ABG Oxyhemoglobin ABG Potassium ABG Glucose Oxyhemoglobin Carboxyhemoglobin Sodium 150 H D Potassium Chloride Carbon Dioxide 39 H D BUN 23 H Creatinine < 0.2 L Glucose 144 H POC Glucose 169 H 152 H Ferritin Total Bilirubin Alkaline Phosphatase Lactate Dehydrogenase Troponin T C-Reactive Protein Total Protein Albumin 3.3 L Prealbumin LDL Cholesterol Direct Arterial Blood Glucose Arterial Blood Ionized Calcium Urine WBC (Auto) 03/06/20 03/07/20 03/07/20 23:58 04:25 04:25 WBC 22.1 H RBC Hgb 10.9 L Hct 32.9 L MCV MCH RDW 15.5 H Plt Count 739 H Lymph % (Auto) 7.8 L [place] # (Auto) 1.3 H Seg Neutrophils % 85.5 H Seg Neuts % (Manual) Lymphocytes % (Manual) Monocytes % (Manual) Seg Neutrophils # 18.9 H Seg Neutrophils # Man Lymphocytes # (Manual) Monocytes # (Manual) Eosinophils # (Manual) PT INR D-Dimer ABG pH POC ABG pCO2 POC ABG pO2 ABG pO2 ABG HCO3 ABG O2 Saturation ABG Base Excess ABG Hemoglobin ABG Oxyhemoglobin ABG Potassium ABG Glucose Oxyhemoglobin Carboxyhemoglobin Sodium 146 H Potassium Chloride Carbon Dioxide 37 H BUN Creatinine < 0.2 L Glucose 118 H POC Glucose 111 H Ferritin Total Bilirubin Alkaline Phosphatase Lactate Dehydrogenase Troponin T C-Reactive Protein Total Protein Albumin 3.7 L Prealbumin LDL Cholesterol Direct Arterial Blood Glucose Arterial Blood Ionized Calcium Urine WBC (Auto) 03/07/20 03/07/20 03/07/20 05:20 17:45 23:32 WBC RBC Hgb Hct MCV MCH RDW Plt Count Lymph % (Auto) [place] # (Auto) Seg Neutrophils % Seg Neuts % (Manual) Lymphocytes % (Manual) Monocytes % (Manual) Seg Neutrophils # Seg Neutrophils # Man Lymphocytes # (Manual) Monocytes # (Manual) Eosinophils # (Manual) PT INR D-Dimer ABG pH POC ABG pCO2 POC ABG pO2 ABG pO2 ABG HCO3 ABG O2 Saturation ABG Base Excess ABG Hemoglobin ABG Oxyhemoglobin ABG Potassium ABG Glucose Oxyhemoglobin Carboxyhemoglobin Sodium Potassium Chloride Carbon Dioxide BUN Creatinine Glucose POC Glucose 113 H 124 H 210 H Ferritin Total Bilirubin Alkaline Phosphatase Lactate Dehydrogenase Troponin T C-Reactive Protein Total Protein Albumin Prealbumin LDL Cholesterol Direct Arterial Blood Glucose Arterial Blood Ionized Calcium Urine WBC (Auto) 03/08/20 03/08/20 03/08/20 05:35 06:43 06:43 WBC 28.9 H RBC 3.53 L Hgb 9.7 L Hct 30.3 L MCV MCH RDW 15.6 H Plt Count 578 H Lymph % (Auto) [place] # (Auto) Seg Neutrophils % Seg Neuts % (Manual) 93.0 H Lymphocytes % (Manual) 4.0 L Monocytes % (Manual) Seg Neutrophils # Seg Neutrophils # Man 26.9 H Lymphocytes # (Manual) Monocytes # (Manual) Eosinophils # (Manual) PT INR D-Dimer ABG pH POC ABG pCO2 POC ABG pO2 ABG pO2 ABG HCO3 ABG O2 Saturation ABG Base Excess ABG Hemoglobin ABG Oxyhemoglobin ABG Potassium ABG Glucose Oxyhemoglobin Carboxyhemoglobin Sodium 146 H Potassium Chloride Carbon Dioxide 35 H BUN 34 H Creatinine 0.3 L D Glucose 125 H POC Glucose 147 H Ferritin Total Bilirubin Alkaline Phosphatase Lactate Dehydrogenase Troponin T C-Reactive Protein Total Protein 5.9 L Albumin 3.2 L Prealbumin LDL Cholesterol Direct Arterial Blood Glucose Arterial Blood Ionized Calcium Urine WBC (Auto) 03/08/20 03/08/20 03/08/20 08:57 11:14 12:34 WBC RBC Hgb Hct MCV MCH RDW Plt Count Lymph % (Auto) [place] # (Auto) Seg Neutrophils % Seg Neuts % (Manual) Lymphocytes % (Manual) Monocytes % (Manual) Seg Neutrophils # Seg Neutrophils # Man Lymphocytes # (Manual) Monocytes # (Manual) Eosinophils # (Manual) PT INR D-Dimer ABG pH POC ABG pCO2 63.1 H POC ABG pO2 ABG pO2 ABG HCO3 ABG O2 Saturation ABG Base Excess ABG Hemoglobin 10.9 L ABG Oxyhemoglobin ABG Potassium ABG Glucose 176 H Oxyhemoglobin Carboxyhemoglobin Sodium Potassium Chloride Carbon Dioxide BUN Creatinine Glucose POC Glucose 171 H Ferritin Total Bilirubin Alkaline Phosphatase Lactate Dehydrogenase Troponin T C-Reactive Protein Total Protein Albumin Prealbumin LDL Cholesterol Direct Arterial Blood Glucose 176 H Arterial Blood Ionized Calcium 4.5 L Urine WBC (Auto) 10.0 H 03/08/20 03/08/20 03/09/20 18:02 23:43 05:49 WBC RBC Hgb Hct MCV MCH RDW Plt Count Lymph % (Auto) [place] # (Auto) Seg Neutrophils % Seg Neuts % (Manual) Lymphocytes % (Manual) Monocytes % (Manual) Seg Neutrophils # Seg Neutrophils # Man Lymphocytes # (Manual) Monocytes # (Manual) Eosinophils # (Manual) PT INR D-Dimer ABG pH POC ABG pCO2 POC ABG pO2 ABG pO2 ABG HCO3 ABG O2 Saturation ABG Base Excess ABG Hemoglobin ABG Oxyhemoglobin ABG Potassium ABG Glucose Oxyhemoglobin Carboxyhemoglobin Sodium Potassium Chloride Carbon Dioxide BUN Creatinine Glucose POC Glucose 157 H 134 H 163 H Ferritin Total Bilirubin Alkaline Phosphatase Lactate Dehydrogenase Troponin T C-Reactive Protein Total Protein Albumin Prealbumin LDL Cholesterol Direct Arterial Blood Glucose Arterial Blood Ionized Calcium Urine WBC (Auto) 03/09/20 03/09/20 03/09/20 08:35 08:35 12:11 WBC 23.4 H RBC 3.36 L Hgb 9.3 L Hct 28.8 L MCV MCH RDW 15.9 H Plt Count 521 H Lymph % (Auto) [place] # (Auto) Seg Neutrophils % Seg Neuts % (Manual) 87.0 H Lymphocytes % (Manual) 4.0 L Monocytes % (Manual) 9.0 H Seg Neutrophils # Seg Neutrophils # Man 20.4 H Lymphocytes # (Manual) 0.9 L Monocytes # (Manual) 2.1 H Eosinophils # (Manual) PT INR D-Dimer ABG pH POC ABG pCO2 POC ABG pO2 ABG pO2 ABG HCO3 ABG O2 Saturation ABG Base Excess ABG Hemoglobin ABG Oxyhemoglobin ABG Potassium ABG Glucose Oxyhemoglobin Carboxyhemoglobin Sodium 147 H Potassium Chloride Carbon Dioxide 37 H BUN 63 H Creatinine Glucose 154 H POC Glucose 128 H Ferritin Total Bilirubin Alkaline Phosphatase Lactate Dehydrogenase Troponin T C-Reactive Protein Total Protein Albumin Prealbumin LDL Cholesterol Direct Arterial Blood Glucose Arterial Blood Ionized Calcium Urine WBC (Auto) 03/09/20 03/10/20 03/10/20 17:51 00:25 05:41 WBC RBC Hgb Hct MCV MCH RDW Plt Count Lymph % (Auto) [place] # (Auto) Seg Neutrophils % Seg Neuts % (Manual) Lymphocytes % (Manual) Monocytes % (Manual) Seg Neutrophils # Seg Neutrophils # Man Lymphocytes # (Manual) Monocytes # (Manual) Eosinophils # (Manual) PT INR D-Dimer ABG pH POC ABG pCO2 POC ABG pO2 ABG pO2 ABG HCO3 ABG O2 Saturation ABG Base Excess ABG Hemoglobin ABG Oxyhemoglobin ABG Potassium ABG Glucose Oxyhemoglobin Carboxyhemoglobin Sodium Potassium Chloride Carbon Dioxide BUN Creatinine Glucose POC Glucose 127 H 128 H 153 H Ferritin Total Bilirubin Alkaline Phosphatase Lactate Dehydrogenase Troponin T C-Reactive Protein Total Protein Albumin Prealbumin LDL Cholesterol Direct Arterial Blood Glucose Arterial Blood Ionized Calcium Urine WBC (Auto) 03/10/20 03/10/20 03/10/20 06:14 06:14 12:02 WBC 18.3 H RBC 3.45 L Hgb 9.5 L Hct 29.5 L MCV MCH RDW 16.1 H Plt Count 494 H Lymph % (Auto) [place] # (Auto) Seg Neutrophils % Seg Neuts % (Manual) 95.0 H Lymphocytes % (Manual) 1.0 L Monocytes % (Manual) Seg Neutrophils # Seg Neutrophils # Man 17.4 H Lymphocytes # (Manual) 0.2 L Monocytes # (Manual) Eosinophils # (Manual) PT INR D-Dimer ABG pH POC ABG pCO2 POC ABG pO2 ABG pO2 ABG HCO3 ABG O2 Saturation ABG Base Excess ABG Hemoglobin ABG Oxyhemoglobin ABG Potassium ABG Glucose Oxyhemoglobin Carboxyhemoglobin Sodium 149 H Potassium Chloride Carbon Dioxide 35 H BUN 34 H Creatinine 0.2 L D Glucose 177 H POC Glucose 151 H Ferritin Total Bilirubin Alkaline Phosphatase Lactate Dehydrogenase Troponin T C-Reactive Protein Total Protein Albumin Prealbumin LDL Cholesterol Direct Arterial Blood Glucose Arterial Blood Ionized Calcium Urine WBC (Auto) 03/10/20 03/10/20 03/11/20 17:41 23:53 05:02 WBC RBC Hgb Hct MCV MCH RDW Plt Count Lymph % (Auto) [place] # (Auto) Seg Neutrophils % Seg Neuts % (Manual) Lymphocytes % (Manual) Monocytes % (Manual) Seg Neutrophils # Seg Neutrophils # Man Lymphocytes # (Manual) Monocytes # (Manual) Eosinophils # (Manual) PT INR D-Dimer ABG pH POC ABG pCO2 POC ABG pO2 ABG pO2 ABG HCO3 ABG O2 Saturation ABG Base Excess ABG Hemoglobin ABG Oxyhemoglobin ABG Potassium ABG Glucose Oxyhemoglobin Carboxyhemoglobin Sodium Potassium Chloride Carbon Dioxide BUN Creatinine Glucose POC Glucose 168 H 142 H 146 H Ferritin Total Bilirubin Alkaline Phosphatase Lactate Dehydrogenase Troponin T C-Reactive Protein Total Protein Albumin Prealbumin LDL Cholesterol Direct Arterial Blood Glucose Arterial Blood Ionized Calcium Urine WBC (Auto) 03/11/20 03/11/20 03/11/20 11:30 14:01 14:01 WBC 19.7 H RBC 3.04 L Hgb 8.7 L Hct 25.8 L MCV MCH RDW 15.6 H Plt Count Lymph % (Auto) [place] # (Auto) Seg Neutrophils % Seg Neuts % (Manual) Lymphocytes % (Manual) Monocytes % (Manual) Seg Neutrophils # Seg Neutrophils # Man Lymphocytes # (Manual) Monocytes # (Manual) Eosinophils # (Manual) PT INR D-Dimer ABG pH POC ABG pCO2 POC ABG pO2 ABG pO2 ABG HCO3 ABG O2 Saturation ABG Base Excess ABG Hemoglobin ABG Oxyhemoglobin ABG Potassium ABG Glucose Oxyhemoglobin Carboxyhemoglobin Sodium 151 H Potassium Chloride Carbon Dioxide 37 H BUN Creatinine < 0.2 L Glucose 171 H POC Glucose 248 H Ferritin Total Bilirubin Alkaline Phosphatase Lactate Dehydrogenase Troponin T C-Reactive Protein Total Protein Albumin Prealbumin LDL Cholesterol Direct Arterial Blood Glucose Arterial Blood Ionized Calcium Urine WBC (Auto) Chest x-ray: other (none today) Allied health notes reviewed: nursing
[2020-03-11] MEDS: ENOXAPARIN 40 MG/0.4 ML INJ SUB-Q SCH (21:06)
[2020-03-12] MEDS: SODIUM CHLORIDE 0.45% 1000 ML 1,000 ML IV SCH ×2 (03:28→18:03)
[2020-03-12] MEDS: MORPHINE 2 MG/1 ML INJ IV PRN ×3 (03:33→20:11)
--- NOTE | 2020-03-12 04:33 | XRay Report ---
CHEST 1 VIEW 03/12/2020 3:20 AM INDICATION / CLINICAL INFORMATION: Atelectasis. COMPARISON: Chest x-ray on 03/01/2020 FINDINGS: SUPPORT DEVICES: Tracheostomy tube and NG tube appear well-positioned. HEART / MEDIASTINUM: No significant abnormality. LUNGS / PLEURA: There is mild left basilar subsegmental atelectasis. No pneumothorax. ADDITIONAL FINDINGS: No significant additional findings. IMPRESSION: 1. Mild left basilar subsegmental atelectasis. Signer Name: Nickolas Francis MD Signed: 03/12/2020 4:28 AM Workstation Name: [email or web address]
[2020-03-12 06:25] LABS: Basophils # (Auto) 0.1 K/mm3 (0.0-0.1); Basophils % (Auto) 0.7 % (0.0-1.8); Eosinophils # (Auto) 0.1 K/mm3 (0.0-0.4); Eosinophils % (Auto) 0.7 % (0.0-4.3); Hematocrit 27.5 % (35.5-45.6); Hemoglobin 8.9 gm/dl (11.8-15.2); Lymphocytes # (Auto) 1.3 K/mm3 (1.2-5.4); Lymphocytes % (Auto) 6.8 % (13.4-35.0); Mean Corpuscular HGB Conc 33 % (32-34); Mean Corpuscular Volume 87 fl (84-94); Monocytes # (Auto) 1.2 K/mm3 (0.0-0.8); Monocytes % (Auto) 5.8 % (0.0-7.3); Platelet Count 356 K/mm3 (140-440); Red Blood Count 3.16 M/mm3 (3.65-5.03); Red Cell Distribution Width 15.7 % (13.2-15.2)
[2020-03-12 06:38] LABS: Blood Urea Nitrogen 19 mg/dL (9-20); Calcium 8.6 mg/dL (8.4-10.2); Hemolysis Index 2
[2020-03-12 06:46] LABS: BUN/Creatinine Ratio 95
[2020-03-12] MEDS: TAMSULOSIN 0.4 MG CAP PO SCH (09:43)
[2020-03-12] MEDS: LANSOPRAZOLE 30 MG SOLUTAB FEEDTUBE SCH (09:43)
[2020-03-12] MEDS: METOPROLOL TARTRATE 25 MG TAB PO SCH ×2 (09:44→22:01)
[2020-03-12] MEDS: GLYCOPYRROLATE 2 MG TAB PO SCH ×3 (09:44→20:11)
[2020-03-12] MEDS: SCOPOLAMINE TRANSDERMAL PATCH 72 HR TD SCH (09:44)
--- NOTE | 2020-03-12 16:27 | Progress Note ---
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 Respiratory Failure Severe Sepsis with Shock Bilateral Pneumonia (Possible aspiration) History of ALS on Trilogy Oropharyngeal Dysphagia PUI-COVID Acute toxic metabolic encephalopathy Elevated D-dimer Elevated troponin possibly type 2 ischemia - RN asked to give a few directly observed ice-chips to moisturize his oropharynx - repeat CXR prn +/- broncoscopy for mucus plugging / large volume atelectasis - continue daytime t-piece trials as tolerated (PSV if fails) - continue to rest on AC qhs - continue Robinul & scopolamine for secretion control - continue care as below otherwise; - continue daily SAT and SBT assessment as tolerated - wound care per RN/WCN - continue Scopolamine patch for secretion control - wean supplemental oxygen for target O2 sat's > 92% acutely - bronchodilators with pulmonary hygiene per RT - VAP bundle addressed - continue lung protective strategies - continue bronchodilators with pulmonary hygiene per RT - wean per pulmonary driven protocols otherwise - sedation prn for target RASS 0 to -1 - empiric antiinfectives per ID rec's (Rocephin and Zithromax) - COVID-19 isolation (Airborne & Contact) - empiric Dexamethasone - follow COVID-19 test results - trend inflammatory markers to aid clinical decision making - enteral nutrition at goal rate as tolerated - Aspiration precautions - accuchecks with glycemic control per SSI (While critically ill target blood glucose of 140-180 mg/dL; avoid hypoglycemia) - avoid nephrotoxins, renally dose all medications - avoid benzodiazepine's, reduce the possibility of delirium - prn analgesia per CPOT score - Maintenance of sleep-wake cycle, avoid delirium - aspiration precautions - G.I. & VTE prophylaxis - PT/OT/ROM exercises - mobility protocols for pressure ulcer prophylaxis - Monitor hemodynamics closely - continue other care per attending / other consultants - discharge planning ongoing concurrently .... Re-evaluate in am & prn CONDITION: CRITICAL PROGNOSIS: GUARDED CODE STATUS: FULL CODE The high probability of a clinically significant, sudden or life-threatening deterioration of the [respiratory, cardiovascular & neurologic] system(s) required my full and direct attention, intervention and personal management. The aggregate critical care time was [32] minutes without overlap. Time includes spent on; [x] Data Review and interpretation [x] Patient assessment and monitoring of vital signs [x] Documentation [x] Medication orders and management Subjective Date of service: 03/12/20 Principal diagnosis: Ac on Ch Hypercapnic & hypoxemic Resp Failure; Severe Sepsis; Jamar PNA; ALS Interval history: Patient is seen today for: Acute on Chronic Hypercapnic & hypoxemic Respiratory Failure; Severe Sepsis with Shock; Bilateral Pneumonia (Possible aspiration); History of ALS on Trilogy; PUI-COVID; Acute toxic metabolic encephalopathy Seen and examined at bedside; 24hour events reviewed; nursing and respiratory care staff consulted; no adverse overnight events reported to me; resting in bed; remains on MVS; again failed t-piece trials rapiodly with desaturation to the 70's; back on PSV 01/31 now and tolerating well; he is "very thirsty" Objective Vital Signs - 12hr 03/12/20 03/12/20 03/12/20 04:28 04:30 05:00 Temperature Pulse Rate 105 H 97 H Pulse Rate [ From Monitor] Respiratory 13 12 Rate Blood Pressure 136/88 135/84 O2 Sat by Pulse 99 98 Oximetry O2 Sat by Pulse 99 Oximetry [ Assessment] 03/12/20 03/12/20 03/12/20 05:30 06:00 06:30 Temperature Pulse Rate 98 H 108 H 113 H Pulse Rate [ From Monitor] Respiratory 13 12 13 Rate Blood Pressure 128/88 133/93 135/92 O2 Sat by Pulse 99 99 Oximetry O2 Sat by Pulse Oximetry [ Assessment] 03/12/20 03/12/20 03/12/20 07:00 07:30 08:00 Temperature 98.1 F Pulse Rate 106 H 107 H 91 H Pulse Rate [ 116 H From Monitor] Respiratory 14 14 13 Rate Blood Pressure 135/94 141/96 141/87 O2 Sat by Pulse 99 99 97 Oximetry O2 Sat by Pulse Oximetry [ Assessment] 03/12/20 03/12/20 03/12/20 08:23 08:31 08:43 Temperature Pulse Rate 61 67 97 H Pulse Rate [ From Monitor] Respiratory 24 20 13 Rate Blood Pressure 141/87 145/94 145/94 O2 Sat by Pulse 93 83 L 97 Oximetry O2 Sat by Pulse Oximetry [ Assessment] 03/12/20 03/12/20 03/12/20 09:00 09:30 09:44 Temperature Pulse Rate 117 H 105 H 105 H Pulse Rate [ From Monitor] Respiratory 15 14 Rate Blood Pressure 148/96 139/87 139/87 O2 Sat by Pulse 95 96 Oximetry O2 Sat by Pulse Oximetry [ Assessment] 03/12/20 03/12/20 03/12/20 10:00 10:30 11:00 Temperature Pulse Rate 109 H 88 100 H Pulse Rate [ From Monitor] Respiratory 14 19 20 Rate Blood Pressure 126/81 138/90 139/88 O2 Sat by Pulse 96 98 99 Oximetry O2 Sat by Pulse Oximetry [ Assessment] 03/12/20 03/12/20 03/12/20 11:30 11:54 12:00 Temperature 99.2 F Pulse Rate 103 H 86 92 H Pulse Rate [ 119 H From Monitor] Respiratory 15 13 16 Rate Blood Pressure 143/94 143/94 148/87 O2 Sat by Pulse 98 98 98 Oximetry O2 Sat by Pulse Oximetry [ Assessment] 03/12/20 03/12/20 03/12/20 12:30 12:31 13:00 Temperature Pulse Rate 119 H 99 H Pulse Rate [ From Monitor] Respiratory 13 13 Rate Blood Pressure 124/80 106/67 O2 Sat by Pulse 98 97 Oximetry O2 Sat by Pulse 99 Oximetry [ Assessment] 03/12/20 03/12/20 03/12/20 13:30 14:00 14:30 Temperature Pulse Rate 96 H 105 H 112 H Pulse Rate [ From Monitor] Respiratory 13 14 13 Rate Blood Pressure 101/67 130/83 129/89 O2 Sat by Pulse 97 99 99 Oximetry O2 Sat by Pulse Oximetry [ Assessment] 03/12/20 03/12/20 03/12/20 15:00 15:30 16:00 Temperature 98.7 F Pulse Rate 117 H 112 H 106 H Pulse Rate [ 107 H From Monitor] Respiratory 21 24 14 Rate Blood Pressure 135/90 132/88 127/89 O2 Sat by Pulse 98 98 98 Oximetry O2 Sat by Pulse Oximetry [ Assessment] 03/12/20 16:04 Temperature Pulse Rate 111 H Pulse Rate [ From Monitor] Respiratory 15 Rate Blood Pressure 127/89 O2 Sat by Pulse 99 Oximetry O2 Sat by Pulse Oximetry [ Assessment] Constitutional: no acute distress, other (thin middle aged male with mildly increased respiratory effort at rest on MVS) Eyes: non-icteric ENT: oropharynx moist, other (S/P Tracheostomy) Neck: supple, no lymphadenopathy, no JVD Effort: mildly labored Ascultation: Bilateral: clear, diminished breath sounds Percussion: Bilateral: not dull Cardiovascular: regular rate and rhythm, other (S1,S2, no murmurs) Gastrointestinal: normoactive bowel sounds, soft, non-tender, non-distended, other (+ distended but non tender suprapubis) Integumentary: normal, decubitus ulcer (sacral / gluteal) Extremities: no cyanosis, no edema, pulses normal, other (atrophic looking limbs) Neurologic: pupils equal and round, other (motor strength in extremities 1-2/5) Psychiatric: depressed CBC and BMP: 03/12/20 04:39 03/12/20 04:39 ABG, PT/INR, D-dimer: ABG ABG pH 7.371 (7.320-7.450) 03/08/20 12:34 POC ABG pCO2 63.1 mmHg (32.0-48.0) H 03/08/20 12:34 ABG pCO2 60.1 mm Hg 03/06/20 04:34 POC ABG pO2 90.5 mmHg (83-108) 03/08/20 12:34 ABG pO2 88.6 mm Hg (80.0-90.0) 03/06/20 04:34 POC ABG HCO3 35.7 03/08/20 12:34 ABG O2 Saturation 97.0 % (95.0-99.0) 03/06/20 04:34 PT/INR, D-dimer PT 15.6 Sec. (12.2-14.9) H 02/24/20 09:19 INR 1.21 (0.87-1.13) H 02/24/20 09:19 D-Dimer 1311.96 ng/mlDDU (0-234) H 02/24/20 09:19 Abnormal lab findings: Abnormal Labs 02/24/20 02/24/20 02/24/20 09:19 09:19 09:19 WBC 20.2 H RBC 5.05 H Hgb Hct MCV MCH RDW 15.3 H Plt Count Lymph % (Auto) [place] # (Auto) Seg Neutrophils % Seg Neuts % (Manual) 86.0 H Lymphocytes % (Manual) 1.0 L Monocytes % (Manual) Seg Neutrophils # Seg Neutrophils # Man 17.4 H Lymphocytes # (Manual) 0.2 L Monocytes # (Manual) Eosinophils # (Manual) PT 15.6 H INR 1.21 H D-Dimer 1311.96 H ABG pH POC ABG pCO2 POC ABG pO2 ABG pO2 ABG HCO3 ABG O2 Saturation ABG Base Excess ABG Hemoglobin ABG Oxyhemoglobin ABG Potassium ABG Glucose Oxyhemoglobin Carboxyhemoglobin Sodium 135 L Potassium 3.2 L Chloride 92.2 L Carbon Dioxide BUN 6 L Creatinine < 0.2 L Glucose 124 H POC Glucose Ferritin Total Bilirubin 2.30 H Alkaline Phosphatase 132 H Lactate Dehydrogenase Troponin T 0.080 H C-Reactive Protein Total Protein Albumin 3.6 L Prealbumin LDL Cholesterol Direct 41 L Arterial Blood Glucose Arterial Blood Ionized Calcium Urine WBC (Auto) 02/24/20 02/24/20 02/24/20 09:19 09:58 10:01 WBC RBC Hgb Hct MCV MCH RDW Plt Count Lymph % (Auto) [place] # (Auto) Seg Neutrophils % Seg Neuts % (Manual) Lymphocytes % (Manual) Monocytes % (Manual) Seg Neutrophils # Seg Neutrophils # Man Lymphocytes # (Manual) Monocytes # (Manual) Eosinophils # (Manual) PT INR D-Dimer ABG pH 7.176 L* POC ABG pCO2 POC ABG pO2 ABG pO2 91.2 H ABG HCO3 ABG O2 Saturation ABG Base Excess -4.6 L ABG Hemoglobin ABG Oxyhemoglobin ABG Potassium ABG Glucose Oxyhemoglobin 92.6 L Carboxyhemoglobin Sodium Potassium Chloride Carbon Dioxide BUN Creatinine Glucose POC Glucose Ferritin 1715.0 H Total Bilirubin Alkaline Phosphatase Lactate Dehydrogenase 303 H Troponin T C-Reactive Protein 26.10 H Total Protein Albumin Prealbumin LDL Cholesterol Direct Arterial Blood Glucose Arterial Blood Ionized Calcium Urine WBC (Auto) 02/24/20 02/24/20 02/24/20 11:52 13:45 19:35 WBC RBC Hgb Hct MCV MCH RDW Plt Count Lymph % (Auto) [place] # (Auto) Seg Neutrophils % Seg Neuts % (Manual) Lymphocytes % (Manual) Monocytes % (Manual) Seg Neutrophils # Seg Neutrophils # Man Lymphocytes # (Manual) Monocytes # (Manual) Eosinophils # (Manual) PT INR D-Dimer ABG pH 7.051 L* 7.300 L POC ABG pCO2 POC ABG pO2 ABG pO2 94.7 H 75.1 L ABG HCO3 18.0 L ABG O2 Saturation 93.5 L ABG Base Excess -6.8 L -7.8 L ABG Hemoglobin 13.2 L 11.9 L ABG Oxyhemoglobin ABG Potassium ABG Glucose Oxyhemoglobin 91.0 L 92.7 L Carboxyhemoglobin Sodium Potassium Chloride Carbon Dioxide BUN Creatinine Glucose POC Glucose Ferritin Total Bilirubin Alkaline Phosphatase Lactate Dehydrogenase Troponin T 0.034 H D C-Reactive Protein Total Protein Albumin Prealbumin LDL Cholesterol Direct Arterial Blood Glucose Arterial Blood Ionized Calcium Urine WBC (Auto) 02/25/20 02/25/20 02/25/20 04:00 04:00 12:26 WBC 22.9 H RBC Hgb Hct MCV 83 L MCH 27 L RDW Plt Count 468 H Lymph % (Auto) [place] # (Auto) Seg Neutrophils % Seg Neuts % (Manual) 89.0 H Lymphocytes % (Manual) 7.0 L Monocytes % (Manual) Seg Neutrophils # Seg Neutrophils # Man 20.4 H Lymphocytes # (Manual) Monocytes # (Manual) Eosinophils # (Manual) PT INR D-Dimer ABG pH POC ABG pCO2 POC ABG pO2 ABG pO2 ABG HCO3 ABG O2 Saturation ABG Base Excess ABG Hemoglobin ABG Oxyhemoglobin ABG Potassium 2.6 L ABG Glucose 142 H Oxyhemoglobin Carboxyhemoglobin Sodium Potassium 3.2 L Chloride Carbon Dioxide 18 L BUN Creatinine 0.2 L Glucose 114 H POC Glucose Ferritin Total Bilirubin Alkaline Phosphatase Lactate Dehydrogenase Troponin T C-Reactive Protein Total Protein Albumin 3.5 L Prealbumin LDL Cholesterol Direct Arterial Blood Glucose 142 H Arterial Blood Ionized Calcium Urine WBC (Auto) 02/26/20 02/26/20 02/26/20 15:58 17:00 23:43 WBC RBC Hgb Hct MCV MCH RDW Plt Count Lymph % (Auto) [place] # (Auto) Seg Neutrophils % Seg Neuts % (Manual) Lymphocytes % (Manual) Monocytes % (Manual) Seg Neutrophils # Seg Neutrophils # Man Lymphocytes # (Manual) Monocytes # (Manual) Eosinophils # (Manual) PT INR D-Dimer ABG pH 7.502 H POC ABG pCO2 POC ABG pO2 213.6 H ABG pO2 ABG HCO3 ABG O2 Saturation ABG Base Excess ABG Hemoglobin ABG Oxyhemoglobin 99.2 H ABG Potassium 2.9 L ABG Glucose 160 H Oxyhemoglobin Carboxyhemoglobin 0.4 L Sodium Potassium Chloride Carbon Dioxide BUN Creatinine Glucose POC Glucose 189 H 120 H Ferritin Total Bilirubin Alkaline Phosphatase Lactate Dehydrogenase Troponin T C-Reactive Protein Total Protein Albumin Prealbumin LDL Cholesterol Direct Arterial Blood Glucose 160 H Arterial Blood Ionized Calcium 4.5 L Urine WBC (Auto) 02/27/20 02/27/20 02/27/20 05:00 07:04 17:45 WBC RBC Hgb Hct MCV MCH RDW Plt Count Lymph % (Auto) [place] # (Auto) Seg Neutrophils % Seg Neuts % (Manual) Lymphocytes % (Manual) Monocytes % (Manual) Seg Neutrophils # Seg Neutrophils # Man Lymphocytes # (Manual) Monocytes # (Manual) Eosinophils # (Manual) PT INR D-Dimer ABG pH 7.524 H POC ABG pCO2 POC ABG pO2 ABG pO2 ABG HCO3 ABG O2 Saturation ABG Base Excess ABG Hemoglobin ABG Oxyhemoglobin ABG Potassium 3.0 L ABG Glucose 143 H Oxyhemoglobin Carboxyhemoglobin Sodium Potassium Chloride Carbon Dioxide BUN Creatinine Glucose POC Glucose 154 H 175 H Ferritin Total Bilirubin Alkaline Phosphatase Lactate Dehydrogenase Troponin T C-Reactive Protein Total Protein Albumin Prealbumin LDL Cholesterol Direct Arterial Blood Glucose 143 H Arterial Blood Ionized Calcium Urine WBC (Auto) 02/27/20 02/28/20 02/28/20 Unknown 00:21 04:15 WBC 18.7 H RBC Hgb Hct MCV MCH RDW Plt Count Lymph % (Auto) 8.7 L [place] # (Auto) 1.2 H Seg Neutrophils % 84.6 H Seg Neuts % (Manual) Lymphocytes % (Manual) Monocytes % (Manual) Seg Neutrophils # 15.9 H Seg Neutrophils # Man Lymphocytes # (Manual) Monocytes # (Manual) Eosinophils # (Manual) PT INR D-Dimer ABG pH POC ABG pCO2 POC ABG pO2 ABG pO2 ABG HCO3 ABG O2 Saturation ABG Base Excess ABG Hemoglobin ABG Oxyhemoglobin ABG Potassium ABG Glucose Oxyhemoglobin Carboxyhemoglobin Sodium Potassium 2.9 L* Chloride Carbon Dioxide 33 H D BUN Creatinine < 0.2 L Glucose 157 H POC Glucose 134 H Ferritin Total Bilirubin Alkaline Phosphatase Lactate Dehydrogenase Troponin T C-Reactive Protein Total Protein Albumin Prealbumin LDL Cholesterol Direct Arterial Blood Glucose Arterial Blood Ionized Calcium Urine WBC (Auto) 02/28/20 02/28/20 02/28/20 04:15 05:16 05:39 WBC RBC Hgb Hct MCV MCH RDW Plt Count Lymph % (Auto) [place] # (Auto) Seg Neutrophils % Seg Neuts % (Manual) Lymphocytes % (Manual) Monocytes % (Manual) Seg Neutrophils # Seg Neutrophils # Man Lymphocytes # (Manual) Monocytes # (Manual) Eosinophils # (Manual) PT INR D-Dimer ABG pH POC ABG pCO2 POC ABG pO2 ABG pO2 142.9 H ABG HCO3 34.1 H ABG O2 Saturation ABG Base Excess 8.3 H ABG Hemoglobin ABG Oxyhemoglobin ABG Potassium ABG Glucose Oxyhemoglobin Carboxyhemoglobin Sodium 151 H Potassium Chloride Carbon Dioxide 32 H BUN Creatinine 0.2 L Glucose 167 H POC Glucose 138 H Ferritin Total Bilirubin Alkaline Phosphatase Lactate Dehydrogenase Troponin T C-Reactive Protein Total Protein Albumin Prealbumin LDL Cholesterol Direct Arterial Blood Glucose Arterial Blood Ionized Calcium Urine WBC (Auto) 02/28/20 02/28/20 02/28/20 11:05 11:33 12:54 WBC RBC Hgb Hct MCV MCH RDW Plt Count Lymph % (Auto) [place] # (Auto) Seg Neutrophils % Seg Neuts % (Manual) Lymphocytes % (Manual) Monocytes % (Manual) Seg Neutrophils # Seg Neutrophils # Man Lymphocytes # (Manual) Monocytes # (Manual) Eosinophils # (Manual) PT INR D-Dimer ABG pH POC ABG pCO2 POC ABG pO2 ABG pO2 ABG HCO3 ABG O2 Saturation ABG Base Excess ABG Hemoglobin ABG Oxyhemoglobin ABG Potassium ABG Glucose Oxyhemoglobin Carboxyhemoglobin Sodium Potassium Chloride Carbon Dioxide BUN Creatinine Glucose POC Glucose 160 H Ferritin Total Bilirubin Alkaline Phosphatase Lactate Dehydrogenase Troponin T C-Reactive Protein 4.70 H Total Protein Albumin Prealbumin 0.090 L LDL Cholesterol Direct Arterial Blood Glucose Arterial Blood Ionized Calcium Urine WBC (Auto) 02/28/20 02/29/20 02/29/20 17:34 00:44 04:05 WBC 19.6 H RBC Hgb Hct MCV MCH 27 L RDW 15.4 H Plt Count Lymph % (Auto) [place] # (Auto) Seg Neutrophils % Seg Neuts % (Manual) 86.0 H Lymphocytes % (Manual) 7.0 L Monocytes % (Manual) Seg Neutrophils # Seg Neutrophils # Man 16.9 H Lymphocytes # (Manual) Monocytes # (Manual) 1.2 H Eosinophils # (Manual) PT INR D-Dimer ABG pH POC ABG pCO2 POC ABG pO2 ABG pO2 ABG HCO3 ABG O2 Saturation ABG Base Excess ABG Hemoglobin ABG Oxyhemoglobin ABG Potassium ABG Glucose Oxyhemoglobin Carboxyhemoglobin Sodium Potassium Chloride Carbon Dioxide BUN Creatinine Glucose POC Glucose 136 H 156 H Ferritin Total Bilirubin Alkaline Phosphatase Lactate Dehydrogenase Troponin T C-Reactive Protein Total Protein Albumin Prealbumin LDL Cholesterol Direct Arterial Blood Glucose Arterial Blood Ionized Calcium Urine WBC (Auto) 02/29/20 02/29/20 02/29/20 04:05 05:14 05:33 WBC RBC Hgb Hct MCV MCH RDW Plt Count Lymph % (Auto) [place] # (Auto) Seg Neutrophils % Seg Neuts % (Manual) Lymphocytes % (Manual) Monocytes % (Manual) Seg Neutrophils # Seg Neutrophils # Man Lymphocytes # (Manual) Monocytes # (Manual) Eosinophils # (Manual) PT INR D-Dimer ABG pH POC ABG pCO2 54.3 H POC ABG pO2 124.8 H ABG pO2 ABG HCO3 ABG O2 Saturation ABG Base Excess ABG Hemoglobin ABG Oxyhemoglobin ABG Potassium ABG Glucose 185 H Oxyhemoglobin Carboxyhemoglobin Sodium 148 H Potassium Chloride Carbon Dioxide 33 H BUN Creatinine < 0.2 L Glucose 173 H POC Glucose 152 H Ferritin Total Bilirubin Alkaline Phosphatase Lactate Dehydrogenase Troponin T C-Reactive Protein Total Protein Albumin Prealbumin LDL Cholesterol Direct Arterial Blood Glucose 185 H Arterial Blood Ionized Calcium Urine WBC (Auto) 03/01/20 03/01/20 03/01/20 00:00 03:45 04:33 WBC 23.1 H RBC Hgb Hct MCV MCH 27 L RDW 15.3 H Plt Count Lymph % (Auto) [place] # (Auto) Seg Neutrophils % Seg Neuts % (Manual) 92.0 H Lymphocytes % (Manual) 6.0 L Monocytes % (Manual) Seg Neutrophils # Seg Neutrophils # Man 21.3 H Lymphocytes # (Manual) Monocytes # (Manual) Eosinophils # (Manual) 0.5 H PT INR D-Dimer ABG pH 7.492 H POC ABG pCO2 POC ABG pO2 ABG pO2 157.1 H ABG HCO3 32.3 H ABG O2 Saturation ABG Base Excess 8.1 H ABG Hemoglobin 13.2 L ABG Oxyhemoglobin ABG Potassium ABG Glucose Oxyhemoglobin Carboxyhemoglobin Sodium Potassium Chloride Carbon Dioxide BUN Creatinine Glucose POC Glucose 109 H Ferritin Total Bilirubin Alkaline Phosphatase Lactate Dehydrogenase Troponin T C-Reactive Protein Total Protein Albumin Prealbumin LDL Cholesterol Direct Arterial Blood Glucose Arterial Blood Ionized Calcium Urine WBC (Auto) 03/01/20 03/01/20 03/01/20 04:33 05:29 12:32 WBC RBC Hgb Hct MCV MCH RDW Plt Count Lymph % (Auto) [place] # (Auto) Seg Neutrophils % Seg Neuts % (Manual) Lymphocytes % (Manual) Monocytes % (Manual) Seg Neutrophils # Seg Neutrophils # Man Lymphocytes # (Manual) Monocytes # (Manual) Eosinophils # (Manual) PT INR D-Dimer ABG pH POC ABG pCO2 POC ABG pO2 ABG pO2 ABG HCO3 ABG O2 Saturation ABG Base Excess ABG Hemoglobin ABG Oxyhemoglobin ABG Potassium ABG Glucose Oxyhemoglobin Carboxyhemoglobin Sodium 146 H Potassium Chloride Carbon Dioxide 32 H BUN Creatinine < 0.2 L Glucose 120 H POC Glucose 120 H 128 H Ferritin Total Bilirubin Alkaline Phosphatase Lactate Dehydrogenase Troponin T C-Reactive Protein Total Protein Albumin Prealbumin LDL Cholesterol Direct Arterial Blood Glucose Arterial Blood Ionized Calcium Urine WBC (Auto) 03/01/20 03/01/20 03/02/20 17:38 23:46 06:13 WBC RBC Hgb Hct MCV MCH RDW Plt Count Lymph % (Auto) [place] # (Auto) Seg Neutrophils % Seg Neuts % (Manual) Lymphocytes % (Manual) Monocytes % (Manual) Seg Neutrophils # Seg Neutrophils # Man Lymphocytes # (Manual) Monocytes # (Manual) Eosinophils # (Manual) PT INR D-Dimer ABG pH POC ABG pCO2 POC ABG pO2 ABG pO2 ABG HCO3 ABG O2 Saturation ABG Base Excess ABG Hemoglobin ABG Oxyhemoglobin ABG Potassium ABG Glucose Oxyhemoglobin Carboxyhemoglobin Sodium Potassium Chloride Carbon Dioxide BUN Creatinine Glucose POC Glucose 114 H 121 H 120 H Ferritin Total Bilirubin Alkaline Phosphatase Lactate Dehydrogenase Troponin T C-Reactive Protein Total Protein Albumin Prealbumin LDL Cholesterol Direct Arterial Blood Glucose Arterial Blood Ionized Calcium Urine WBC (Auto) 03/02/20 03/02/20 03/03/20 09:47 09:47 10:21 WBC 23.6 H RBC Hgb Hct MCV MCH RDW 15.3 H Plt Count 494 H Lymph % (Auto) [place] # (Auto) Seg Neutrophils % Seg Neuts % (Manual) 85.0 H Lymphocytes % (Manual) 6.0 L Monocytes % (Manual) Seg Neutrophils # Seg Neutrophils # Man 20.1 H Lymphocytes # (Manual) Monocytes # (Manual) 1.7 H Eosinophils # (Manual) PT INR D-Dimer ABG pH POC ABG pCO2 POC ABG pO2 ABG pO2 ABG HCO3 ABG O2 Saturation ABG Base Excess ABG Hemoglobin ABG Oxyhemoglobin ABG Potassium 3.3 L ABG Glucose 158 H Oxyhemoglobin Carboxyhemoglobin Sodium Potassium Chloride Carbon Dioxide BUN Creatinine < 0.2 L Glucose 177 H POC Glucose Ferritin Total Bilirubin Alkaline Phosphatase Lactate Dehydrogenase Troponin T C-Reactive Protein Total Protein Albumin Prealbumin LDL Cholesterol Direct Arterial Blood Glucose 158 H Arterial Blood Ionized Calcium Urine WBC (Auto) 03/03/20 03/04/20 03/04/20 21:30 00:00 12:23 WBC RBC Hgb Hct MCV MCH RDW Plt Count Lymph % (Auto) [place] # (Auto) Seg Neutrophils % Seg Neuts % (Manual) Lymphocytes % (Manual) Monocytes % (Manual) Seg Neutrophils # Seg Neutrophils # Man Lymphocytes # (Manual) Monocytes # (Manual) Eosinophils # (Manual) PT INR D-Dimer ABG pH 7.328 L POC ABG pCO2 POC ABG pO2 ABG pO2 68.4 L ABG HCO3 35.0 H ABG O2 Saturation 93.9 L ABG Base Excess 6.8 H ABG Hemoglobin 12.7 L ABG Oxyhemoglobin ABG Potassium ABG Glucose Oxyhemoglobin 91.9 L Carboxyhemoglobin Sodium Potassium Chloride Carbon Dioxide BUN Creatinine Glucose POC Glucose 187 H 163 H Ferritin Total Bilirubin Alkaline Phosphatase Lactate Dehydrogenase Troponin T C-Reactive Protein Total Protein Albumin Prealbumin LDL Cholesterol Direct Arterial Blood Glucose Arterial Blood Ionized Calcium Urine WBC (Auto) 03/04/20 03/04/20 03/05/20 18:15 21:30 06:02 WBC RBC Hgb Hct MCV MCH RDW Plt Count Lymph % (Auto) [place] # (Auto) Seg Neutrophils % Seg Neuts % (Manual) Lymphocytes % (Manual) Monocytes % (Manual) Seg Neutrophils # Seg Neutrophils # Man Lymphocytes # (Manual) Monocytes # (Manual) Eosinophils # (Manual) PT INR D-Dimer ABG pH 7.297 L POC ABG pCO2 POC ABG pO2 ABG pO2 ABG HCO3 41.0 H ABG O2 Saturation ABG Base Excess 11.0 H ABG Hemoglobin 13.1 L ABG Oxyhemoglobin ABG Potassium ABG Glucose Oxyhemoglobin 94.5 L Carboxyhemoglobin Sodium Potassium Chloride Carbon Dioxide BUN Creatinine Glucose POC Glucose 192 H 127 H Ferritin Total Bilirubin Alkaline Phosphatase Lactate Dehydrogenase Troponin T C-Reactive Protein Total Protein Albumin Prealbumin LDL Cholesterol Direct Arterial Blood Glucose Arterial Blood Ionized Calcium Urine WBC (Auto) 03/05/20 03/05/20 03/06/20 12:09 16:42 00:24 WBC RBC Hgb Hct MCV MCH RDW Plt Count Lymph % (Auto) [place] # (Auto) Seg Neutrophils % Seg Neuts % (Manual) Lymphocytes % (Manual) Monocytes % (Manual) Seg Neutrophils # Seg Neutrophils # Man Lymphocytes # (Manual) Monocytes # (Manual) Eosinophils # (Manual) PT INR D-Dimer ABG pH POC ABG pCO2 POC ABG pO2 ABG pO2 ABG HCO3 ABG O2 Saturation ABG Base Excess ABG Hemoglobin ABG Oxyhemoglobin ABG Potassium ABG Glucose Oxyhemoglobin Carboxyhemoglobin Sodium Potassium Chloride Carbon Dioxide BUN Creatinine Glucose POC Glucose 147 H 114 H 134 H Ferritin Total Bilirubin Alkaline Phosphatase Lactate Dehydrogenase Troponin T C-Reactive Protein Total Protein Albumin Prealbumin LDL Cholesterol Direct Arterial Blood Glucose Arterial Blood Ionized Calcium Urine WBC (Auto) 03/06/20 03/06/20 03/06/20 04:34 05:53 06:08 WBC 25.4 H RBC Hgb 10.5 L Hct 32.7 L MCV MCH 27 L RDW 15.3 H Plt Count 634 H Lymph % (Auto) [place] # (Auto) Seg Neutrophils % Seg Neuts % (Manual) 88.0 H Lymphocytes % (Manual) 2.0 L Monocytes % (Manual) 8.0 H Seg Neutrophils # Seg Neutrophils # Man 22.4 H Lymphocytes # (Manual) 0.5 L Monocytes # (Manual) 2.0 H Eosinophils # (Manual) PT INR D-Dimer ABG pH POC ABG pCO2 POC ABG pO2 ABG pO2 ABG HCO3 37.9 H ABG O2 Saturation ABG Base Excess 11.4 H ABG Hemoglobin 10.6 L ABG Oxyhemoglobin ABG Potassium ABG Glucose Oxyhemoglobin 94.7 L Carboxyhemoglobin Sodium Potassium Chloride Carbon Dioxide BUN Creatinine Glucose POC Glucose 135 H Ferritin Total Bilirubin Alkaline Phosphatase Lactate Dehydrogenase Troponin T C-Reactive Protein Total Protein Albumin Prealbumin LDL Cholesterol Direct Arterial Blood Glucose Arterial Blood Ionized Calcium Urine WBC (Auto) 03/06/20 03/06/20 03/06/20 06:08 12:19 19:10 WBC RBC Hgb Hct MCV MCH RDW Plt Count Lymph % (Auto) [place] # (Auto) Seg Neutrophils % Seg Neuts % (Manual) Lymphocytes % (Manual) Monocytes % (Manual) Seg Neutrophils # Seg Neutrophils # Man Lymphocytes # (Manual) Monocytes # (Manual) Eosinophils # (Manual) PT INR D-Dimer ABG pH POC ABG pCO2 POC ABG pO2 ABG pO2 ABG HCO3 ABG O2 Saturation ABG Base Excess ABG Hemoglobin ABG Oxyhemoglobin ABG Potassium ABG Glucose Oxyhemoglobin Carboxyhemoglobin Sodium 150 H D Potassium Chloride Carbon Dioxide 39 H D BUN 23 H Creatinine < 0.2 L Glucose 144 H POC Glucose 169 H 152 H Ferritin Total Bilirubin Alkaline Phosphatase Lactate Dehydrogenase Troponin T C-Reactive Protein Total Protein Albumin 3.3 L Prealbumin LDL Cholesterol Direct Arterial Blood Glucose Arterial Blood Ionized Calcium Urine WBC (Auto) 03/06/20 03/07/20 03/07/20 23:58 04:25 04:25 WBC 22.1 H RBC Hgb 10.9 L Hct 32.9 L MCV MCH RDW 15.5 H Plt Count 739 H Lymph % (Auto) 7.8 L [place] # (Auto) 1.3 H Seg Neutrophils % 85.5 H Seg Neuts % (Manual) Lymphocytes % (Manual) Monocytes % (Manual) Seg Neutrophils # 18.9 H Seg Neutrophils # Man Lymphocytes # (Manual) Monocytes # (Manual) Eosinophils # (Manual) PT INR D-Dimer ABG pH POC ABG pCO2 POC ABG pO2 ABG pO2 ABG HCO3 ABG O2 Saturation ABG Base Excess ABG Hemoglobin ABG Oxyhemoglobin ABG Potassium ABG Glucose Oxyhemoglobin Carboxyhemoglobin Sodium 146 H Potassium Chloride Carbon Dioxide 37 H BUN Creatinine < 0.2 L Glucose 118 H POC Glucose 111 H Ferritin Total Bilirubin Alkaline Phosphatase Lactate Dehydrogenase Troponin T C-Reactive Protein Total Protein Albumin 3.7 L Prealbumin LDL Cholesterol Direct Arterial Blood Glucose Arterial Blood Ionized Calcium Urine WBC (Auto) 03/07/20 03/07/20 03/07/20 05:20 17:45 23:32 WBC RBC Hgb Hct MCV MCH RDW Plt Count Lymph % (Auto) [place] # (Auto) Seg Neutrophils % Seg Neuts % (Manual) Lymphocytes % (Manual) Monocytes % (Manual) Seg Neutrophils # Seg Neutrophils # Man Lymphocytes # (Manual) Monocytes # (Manual) Eosinophils # (Manual) PT INR D-Dimer ABG pH POC ABG pCO2 POC ABG pO2 ABG pO2 ABG HCO3 ABG O2 Saturation ABG Base Excess ABG Hemoglobin ABG Oxyhemoglobin ABG Potassium ABG Glucose Oxyhemoglobin Carboxyhemoglobin Sodium Potassium Chloride Carbon Dioxide BUN Creatinine Glucose POC Glucose 113 H 124 H 210 H Ferritin Total Bilirubin Alkaline Phosphatase Lactate Dehydrogenase Troponin T C-Reactive Protein Total Protein Albumin Prealbumin LDL Cholesterol Direct Arterial Blood Glucose Arterial Blood Ionized Calcium Urine WBC (Auto) 03/08/20 03/08/20 03/08/20 05:35 06:43 06:43 WBC 28.9 H RBC 3.53 L Hgb 9.7 L Hct 30.3 L MCV MCH RDW 15.6 H Plt Count 578 H Lymph % (Auto) [place] # (Auto) Seg Neutrophils % Seg Neuts % (Manual) 93.0 H Lymphocytes % (Manual) 4.0 L Monocytes % (Manual) Seg Neutrophils # Seg Neutrophils # Man 26.9 H Lymphocytes # (Manual) Monocytes # (Manual) Eosinophils # (Manual) PT INR D-Dimer ABG pH POC ABG pCO2 POC ABG pO2 ABG pO2 ABG HCO3 ABG O2 Saturation ABG Base Excess ABG Hemoglobin ABG Oxyhemoglobin ABG Potassium ABG Glucose Oxyhemoglobin Carboxyhemoglobin Sodium 146 H Potassium Chloride Carbon Dioxide 35 H BUN 34 H Creatinine 0.3 L D Glucose 125 H POC Glucose 147 H Ferritin Total Bilirubin Alkaline Phosphatase Lactate Dehydrogenase Troponin T C-Reactive Protein Total Protein 5.9 L Albumin 3.2 L Prealbumin LDL Cholesterol Direct Arterial Blood Glucose Arterial Blood Ionized Calcium Urine WBC (Auto) 03/08/20 03/08/20 03/08/20 08:57 11:14 12:34 WBC RBC Hgb Hct MCV MCH RDW Plt Count Lymph % (Auto) [place] # (Auto) Seg Neutrophils % Seg Neuts % (Manual) Lymphocytes % (Manual) Monocytes % (Manual) Seg Neutrophils # Seg Neutrophils # Man Lymphocytes # (Manual) Monocytes # (Manual) Eosinophils # (Manual) PT INR D-Dimer ABG pH POC ABG pCO2 63.1 H POC ABG pO2 ABG pO2 ABG HCO3 ABG O2 Saturation ABG Base Excess ABG Hemoglobin 10.9 L ABG Oxyhemoglobin ABG Potassium ABG Glucose 176 H Oxyhemoglobin Carboxyhemoglobin Sodium Potassium Chloride Carbon Dioxide BUN Creatinine Glucose POC Glucose 171 H Ferritin Total Bilirubin Alkaline Phosphatase Lactate Dehydrogenase Troponin T C-Reactive Protein Total Protein Albumin Prealbumin LDL Cholesterol Direct Arterial Blood Glucose 176 H Arterial Blood Ionized Calcium 4.5 L Urine WBC (Auto) 10.0 H 03/08/20 03/08/20 03/09/20 18:02 23:43 05:49 WBC RBC Hgb Hct MCV MCH RDW Plt Count Lymph % (Auto) [place] # (Auto) Seg Neutrophils % Seg Neuts % (Manual) Lymphocytes % (Manual) Monocytes % (Manual) Seg Neutrophils # Seg Neutrophils # Man Lymphocytes # (Manual) Monocytes # (Manual) Eosinophils # (Manual) PT INR D-Dimer ABG pH POC ABG pCO2 POC ABG pO2 ABG pO2 ABG HCO3 ABG O2 Saturation ABG Base Excess ABG Hemoglobin ABG Oxyhemoglobin ABG Potassium ABG Glucose Oxyhemoglobin Carboxyhemoglobin Sodium Potassium Chloride Carbon Dioxide BUN Creatinine Glucose POC Glucose 157 H 134 H 163 H Ferritin Total Bilirubin Alkaline Phosphatase Lactate Dehydrogenase Troponin T C-Reactive Protein Total Protein Albumin Prealbumin LDL Cholesterol Direct Arterial Blood Glucose Arterial Blood Ionized Calcium Urine WBC (Auto) 03/09/20 03/09/20 03/09/20 08:35 08:35 12:11 WBC 23.4 H RBC 3.36 L Hgb 9.3 L Hct 28.8 L MCV MCH RDW 15.9 H Plt Count 521 H Lymph % (Auto) [place] # (Auto) Seg Neutrophils % Seg Neuts % (Manual) 87.0 H Lymphocytes % (Manual) 4.0 L Monocytes % (Manual) 9.0 H Seg Neutrophils # Seg Neutrophils # Man 20.4 H Lymphocytes # (Manual) 0.9 L Monocytes # (Manual) 2.1 H Eosinophils # (Manual) PT INR D-Dimer ABG pH POC ABG pCO2 POC ABG pO2 ABG pO2 ABG HCO3 ABG O2 Saturation ABG Base Excess ABG Hemoglobin ABG Oxyhemoglobin ABG Potassium ABG Glucose Oxyhemoglobin Carboxyhemoglobin Sodium 147 H Potassium Chloride Carbon Dioxide 37 H BUN 63 H Creatinine Glucose 154 H POC Glucose 128 H Ferritin Total Bilirubin Alkaline Phosphatase Lactate Dehydrogenase Troponin T C-Reactive Protein Total Protein Albumin Prealbumin LDL Cholesterol Direct Arterial Blood Glucose Arterial Blood Ionized Calcium Urine WBC (Auto) 03/09/20 03/10/20 03/10/20 17:51 00:25 05:41 WBC RBC Hgb Hct MCV MCH RDW Plt Count Lymph % (Auto) [place] # (Auto) Seg Neutrophils % Seg Neuts % (Manual) Lymphocytes % (Manual) Monocytes % (Manual) Seg Neutrophils # Seg Neutrophils # Man Lymphocytes # (Manual) Monocytes # (Manual) Eosinophils # (Manual) PT INR D-Dimer ABG pH POC ABG pCO2 POC ABG pO2 ABG pO2 ABG HCO3 ABG O2 Saturation ABG Base Excess ABG Hemoglobin ABG Oxyhemoglobin ABG Potassium ABG Glucose Oxyhemoglobin Carboxyhemoglobin Sodium Potassium Chloride Carbon Dioxide BUN Creatinine Glucose POC Glucose 127 H 128 H 153 H Ferritin Total Bilirubin Alkaline Phosphatase Lactate Dehydrogenase Troponin T C-Reactive Protein Total Protein Albumin Prealbumin LDL Cholesterol Direct Arterial Blood Glucose Arterial Blood Ionized Calcium Urine WBC (Auto) 03/10/20 03/10/20 03/10/20 06:14 06:14 12:02 WBC 18.3 H RBC 3.45 L Hgb 9.5 L Hct 29.5 L MCV MCH RDW 16.1 H Plt Count 494 H Lymph % (Auto) [place] # (Auto) Seg Neutrophils % Seg Neuts % (Manual) 95.0 H Lymphocytes % (Manual) 1.0 L Monocytes % (Manual) Seg Neutrophils # Seg Neutrophils # Man 17.4 H Lymphocytes # (Manual) 0.2 L Monocytes # (Manual) Eosinophils # (Manual) PT INR D-Dimer ABG pH POC ABG pCO2 POC ABG pO2 ABG pO2 ABG HCO3 ABG O2 Saturation ABG Base Excess ABG Hemoglobin ABG Oxyhemoglobin ABG Potassium ABG Glucose Oxyhemoglobin Carboxyhemoglobin Sodium 149 H Potassium Chloride Carbon Dioxide 35 H BUN 34 H Creatinine 0.2 L D Glucose 177 H POC Glucose 151 H Ferritin Total Bilirubin Alkaline Phosphatase Lactate Dehydrogenase Troponin T C-Reactive Protein Total Protein Albumin Prealbumin LDL Cholesterol Direct Arterial Blood Glucose Arterial Blood Ionized Calcium Urine WBC (Auto) 03/10/20 03/10/20 03/11/20 17:41 23:53 05:02 WBC RBC Hgb Hct MCV MCH RDW Plt Count Lymph % (Auto) [place] # (Auto) Seg Neutrophils % Seg Neuts % (Manual) Lymphocytes % (Manual) Monocytes % (Manual) Seg Neutrophils # Seg Neutrophils # Man Lymphocytes # (Manual) Monocytes # (Manual) Eosinophils # (Manual) PT INR D-Dimer ABG pH POC ABG pCO2 POC ABG pO2 ABG pO2 ABG HCO3 ABG O2 Saturation ABG Base Excess ABG Hemoglobin ABG Oxyhemoglobin ABG Potassium ABG Glucose Oxyhemoglobin Carboxyhemoglobin Sodium Potassium Chloride Carbon Dioxide BUN Creatinine Glucose POC Glucose 168 H 142 H 146 H Ferritin Total Bilirubin Alkaline Phosphatase Lactate Dehydrogenase Troponin T C-Reactive Protein Total Protein Albumin Prealbumin LDL Cholesterol Direct Arterial Blood Glucose Arterial Blood Ionized Calcium Urine WBC (Auto) 03/11/20 03/11/20 03/11/20 11:30 14:01 14:01 WBC 19.7 H RBC 3.04 L Hgb 8.7 L Hct 25.8 L MCV MCH RDW 15.6 H Plt Count Lymph % (Auto) [place] # (Auto) Seg Neutrophils % Seg Neuts % (Manual) Lymphocytes % (Manual) Monocytes % (Manual) Seg Neutrophils # Seg Neutrophils # Man Lymphocytes # (Manual) Monocytes # (Manual) Eosinophils # (Manual) PT INR D-Dimer ABG pH POC ABG pCO2 POC ABG pO2 ABG pO2 ABG HCO3 ABG O2 Saturation ABG Base Excess ABG Hemoglobin ABG Oxyhemoglobin ABG Potassium ABG Glucose Oxyhemoglobin Carboxyhemoglobin Sodium 151 H Potassium Chloride Carbon Dioxide 37 H BUN Creatinine < 0.2 L Glucose 171 H POC Glucose 248 H Ferritin Total Bilirubin Alkaline Phosphatase Lactate Dehydrogenase Troponin T C-Reactive Protein Total Protein Albumin Prealbumin LDL Cholesterol Direct Arterial Blood Glucose Arterial Blood Ionized Calcium Urine WBC (Auto) 03/11/20 03/11/20 03/12/20 17:09 23:52 04:39 WBC 19.9 H RBC 3.16 L Hgb 8.9 L Hct 27.5 L MCV MCH RDW 15.7 H Plt Count Lymph % (Auto) 6.8 L [place] # (Auto) 1.2 H Seg Neutrophils % 86.0 H Seg Neuts % (Manual) Lymphocytes % (Manual) Monocytes % (Manual) Seg Neutrophils # 17.1 H Seg Neutrophils # Man Lymphocytes # (Manual) Monocytes # (Manual) Eosinophils # (Manual) PT INR D-Dimer ABG pH POC ABG pCO2 POC ABG pO2 ABG pO2 ABG HCO3 ABG O2 Saturation ABG Base Excess ABG Hemoglobin ABG Oxyhemoglobin ABG Potassium ABG Glucose Oxyhemoglobin Carboxyhemoglobin Sodium Potassium Chloride Carbon Dioxide BUN Creatinine Glucose POC Glucose 124 H 131 H Ferritin Total Bilirubin Alkaline Phosphatase Lactate Dehydrogenase Troponin T C-Reactive Protein Total Protein Albumin Prealbumin LDL Cholesterol Direct Arterial Blood Glucose Arterial Blood Ionized Calcium Urine WBC (Auto) 03/12/20 03/12/20 03/12/20 04:39 05:28 11:34 WBC RBC Hgb Hct MCV MCH RDW Plt Count Lymph % (Auto) [place] # (Auto) Seg Neutrophils % Seg Neuts % (Manual) Lymphocytes % (Manual) Monocytes % (Manual) Seg Neutrophils # Seg Neutrophils # Man Lymphocytes # (Manual) Monocytes # (Manual) Eosinophils # (Manual) PT INR D-Dimer ABG pH POC ABG pCO2 POC ABG pO2 ABG pO2 ABG HCO3 ABG O2 Saturation ABG Base Excess ABG Hemoglobin ABG Oxyhemoglobin ABG Potassium ABG Glucose Oxyhemoglobin Carboxyhemoglobin Sodium 147 H Potassium Chloride Carbon Dioxide 40 H BUN Creatinine < 0.2 L Glucose 175 H POC Glucose 167 H 144 H Ferritin Total Bilirubin Alkaline Phosphatase Lactate Dehydrogenase Troponin T C-Reactive Protein Total Protein Albumin Prealbumin LDL Cholesterol Direct Arterial Blood Glucose Arterial Blood Ionized Calcium Urine WBC (Auto) Chest x-ray: image reviewed (no acute process or significant atelectasis) Allied health notes reviewed: nursing
--- NOTE | 2020-03-12 17:53 | Progress Note ---
Assessment and Plan --Acute hypoxic hypercapnic respiratory failure; Intubated on mechanical ventilation. Etiology secondary to sepsis, ALS, multifocal pneumonia (Covid negative). S/p trach placement 03/07/20 --ALS; Chronic Continue to provide supportive care --Elevated D-dimers; CTA chest, lower extremity venous Doppler both are negative Lovenox for DVT prophylaxis --Bilateral pneumonia; probably community-acquired Continue cefepime and vancomycin ID recommendations appreciated --Sepsis secondary to pneumonia Continue cefepime and vancomycin --Elevated troponin; Serial cardiac enzymes, serial EKGs Echocardiogram, cardiology consult if needed --Hypernatremia Trend sodium Free water via feeding tube --Abdominal distention due to bladder outlet obstruction, resolved CT abdomen showed bladder outlet obstruction, urology consulted s/p drake placement by urology on 03/09 --Hypotension possibly from septic shock and bladder outlet obstruction improved following placing draek --Hypernatremia due to hypovolumia free water with TF and place on 1/2NS --DVT prophylaxis; Lovenox The high probability of a clinically significant, sudden or life threatening deterioration of the [cardiac, renal and respiratory] system(s) required my full and direct attention, intervention and personal management. The aggregate critical care time was [34] minutes. This time is in addition to time spent performing reported procedures but includes the following: [x] Data Review and interpretation [x] Patient assessment and monitoring of vital signs [x] Documentation [x] Medication orders and management Brief history: 59-year-old male patient with significant past medical history of ALS, presented to ED with worsening shortness of breath since the morning [employer]ODUCTION A[employer]. Patient was on a trilogy machine for breathing 18/11. EMS arrived, patient had O2 sats in the 80s. EMS attempted to place patient on their CPAP machine, h owever patient did not tolerate. Patient was admitted to the ICU with diagnosis of acute hypoxic respiratory failure and placed on BiPAP. Patient initially tolerated but later deteriorated with respiratory status. CTA chest showed no PE but significant for bilateral pneumonia. Doppler ultrasound also negative for DVT. COVID-19 test ordered. Due to persistent hypoxia, patient was intubated on 02/26/2020 at 1500. Patient now on mechanical ventilation in the ICU s/p trach placement today. Daily course: 02/26/2020. Blood cultures are negative x48 hours and Covid testing negative as well. Continue antibiotics per ID recommendations for community-acquired bilateral pneumonia. Cardiology consultation for elevated troponin. Check echocardiogram. 02/27/2020. Events of yesterday noted with asystole following V. fib arrest. Patient currently on AC mode rate 20, tidal volume 400, FiO2 50% and a PEEP of 6. Follow-up echocardiogram for elevated troponin. Cardiology suspects NSTEMI Type 2 in the setting of acute resp failure. Chest CTA and BLE Dopplers neg. we will discontinue Decadron given the Covid PCR is negative. 02/28/2020. Spoke with the sister Felisa Eli who is the power of manager portable regarding advanced directives and she instructed me that she would like to continue with aggressive care at this time. I informed her of the guarded prognosis and high mortality/morbidity and she voiced understanding. Patient currently with AC mode ventilation rate 18, tidal volume 400, FiO2 40% and a PEEP of 6. Continue antibiotics for pneumonia. ID previously consulted. Also consult neurology with regards to ALS. 02/29/2020; patient is intubated and on CPAP patient is alert and oriented. Patient has ALS. Dr. Álvarez spoke with his sister and she wants aggressive care. Continue antibiotics for pneumonia. Neurology consulted for ALS. Prognosis poor 03/01/2020; patient is intubated and on CPAP, patient is alert and oriented. I spoke with his 2 sisters about the management plan. 03/02/2020; patient is intubated and on CPAP. Patient was alert and oriented. I spoke with Dr. mohr and he thinks patient may need mechanical ventilation, likely his disease progressed. Dr. Flowers did debridement this morning. 03/03/2020; patient is intubated and on CPAP, patient was on trilogy and BiPAP at home. Patient has ALS. on spontaneous breathing trial. Patient is alert and oriented but quadriplegic. Patient has severe bilateral pneumonia and is on cefepime and Vanco, ID is following. Patient has sacral decubitus ulcer and debridement was done by Dr. Flowers and there is no osteomyelitis. 03/05. Patient still on broad-spectrum antibiotics. Status post sacral decubitus ulcer debridements-no osteomyelitis. Patient is on AC 25/400/30% PEEP 5. No blood gas results today. 03/06. Plan for tracheostomy by surgery. Still remains intubated. Labs reviewe d-sodium 150. Started on free water 200 every 8hr. trend sodium. 03/07: s/p trach placement today, patient placed back on mechanical ventilation with trach. Plan to resume tube feeding with NG tube. Continue to monitor vitals, monitor BMP. 03/08: Patient noted to have distended abdomen with low urinary output. Obtain bladder scan rule out urine retention, UA and urine culture, continue to follow clinically. 03/09: Patient noted to have low blood pressure with SBP as low as 70s. Ordered for 500 mils normal saline bolus. CT abdomen showed bladder outlet obstruction, urology consulted. 03/10: placed on drake by urology o/n, improved urine outpt. cont to monitor BMP. resuded TF - cont free water with TF. wean off from vent as tolerated. 03/11: Vitals stable. cont TF, wean off from vent as tolerated. start on 1/2 NS for hypernatremia - follow BMP 03/12: wean off vent as tolerated, plan for speech eval, cont Tf for now, cont iv fluid Subjective Date of service: 03/12/20 Principal diagnosis: Ac on Ch Hypercapnic & hypoxemic Resp Failure; Severe Sepsis; Jamar PNA; ALS Interval history: Patient seen and examined Remains on mechanical ventilation with trach tube Discussed with RN at the bedside Vitals reviewed -BP stable Objective - Exam Narrative Exam: GENERAL: Awake. Intubated with trach tube HEAD: No signs of head trauma. EYES: Pupils are equal. Extraocular motions intact. EARS: Hearing grossly intact. MOUTH: Oropharynx is normal. NECK: No adenopathy, no JVD. CHEST: Coarse breath sounds bilaterally CARDIAC: Regular rate and rhythm. S1 and S2, without murmurs, gallops, or rubs. VASCULAR: No Edema. Peripheral pulses normal and equal in all extremities. ABDOMEN: Soft, non tender and nondistended. Bowel Sounds normal. NEUROLOGIC EXAM: Awake, paraplegic SKIN: No obvious lesions - Constitutional Vitals: Vital Signs - 12hr 03/12/20 03/12/20 03/12/20 06:00 06:30 07:00 Temperature Pulse Rate 108 H 113 H 106 H Pulse Rate [ From Monitor] Respiratory 12 13 14 Rate Blood Pressure 133/93 135/92 135/94 O2 Sat by Pulse 99 99 99 Oximetry O2 Sat by Pulse Oximetry [ Assessment] 1103/12/20 03/12/20 07:30 08:00 08:23 Temperature 98.1 F Pulse Rate 107 H 91 H 61 Pulse Rate [ 116 H From Monitor] Respiratory 14 13 24 Rate Blood Pressure 141/96 141/87 141/87 O2 Sat by Pulse 99 97 93 Oximetry O2 Sat by Pulse Oximetry [ Assessment] 03/12/20 03/12/20 03/12/20 08:31 08:43 09:00 Temperature Pulse Rate 67 97 H 117 H Pulse Rate [ From Monitor] Respiratory 20 13 15 Rate Blood Pressure 145/94 145/94 148/96 O2 Sat by Pulse 83 L 97 95 Oximetry O2 Sat by Pulse Oximetry [ Assessment] 03/12/20 03/12/20 03/12/20 09:30 09:44 10:00 Temperature Pulse Rate 105 H 105 H 109 H Pulse Rate [ From Monitor] Respiratory 14 14 Rate Blood Pressure 139/87 139/87 126/81 O2 Sat by Pulse 96 96 Oximetry O2 Sat by Pulse Oximetry [ Assessment] 03/12/20 03/12/20 03/12/20 10:30 11:00 11:30 Temperature Pulse Rate 88 100 H 103 H Pulse Rate [ From Monitor] Respiratory 19 20 15 Rate Blood Pressure 138/90 139/88 143/94 O2 Sat by Pulse 98 99 98 Oximetry O2 Sat by Pulse Oximetry [ Assessment] 03/12/20 03/12/20 03/12/20 11:54 12:00 12:30 Temperature 99.2 F Pulse Rate 86 92 H 119 H Pulse Rate [ 119 H From Monitor] Respiratory 13 16 13 Rate Blood Pressure 143/94 148/87 124/80 O2 Sat by Pulse 98 98 98 Oximetry O2 Sat by Pulse Oximetry [ Assessment] 03/12/20 03/12/20 03/12/20 12:31 13:00 13:30 Temperature Pulse Rate 99 H 96 H Pulse Rate [ From Monitor] Respiratory 13 13 Rate Blood Pressure 106/67 101/67 O2 Sat by Pulse 97 97 Oximetry O2 Sat by Pulse 99 Oximetry [ Assessment] 03/12/20 03/12/20 03/12/20 14:00 14:30 15:00 Temperature Pulse Rate 105 H 112 H 117 H Pulse Rate [ From Monitor] Respiratory 14 13 21 Rate Blood Pressure 130/83 129/89 135/90 O2 Sat by Pulse 99 99 98 Oximetry O2 Sat by Pulse Oximetry [ Assessment] 03/12/20 03/12/20 03/12/20 15:30 16:00 16:04 Temperature 98.7 F Pulse Rate 112 H 106 H 111 H Pulse Rate [ 107 H From Monitor] Respiratory 24 14 15 Rate Blood Pressure 132/88 127/89 127/89 O2 Sat by Pulse 98 98 99 Oximetry O2 Sat by Pulse Oximetry [ Assessment] 03/12/20 17:52 Temperature Pulse Rate Pulse Rate [ From Monitor] Respiratory 26 H Rate Blood Pressure O2 Sat by Pulse Oximetry O2 Sat by Pulse Oximetry [ Assessment] - Labs CBC & Chem 7: 03/12/20 04:39 03/12/20 04:39 Labs: Abnormal lab results 03/11/20 03/12/20 03/12/20 Range/Units 23:52 04:39 04:39 WBC 19.9 H (4.5-11.0) K/mm3 RBC 3.16 L (3.65-5.03) M/mm3 Hgb 8.9 L (11.8-15.2) gm/dl Hct 27.5 L (35.5-45.6) % RDW 15.7 H (13.2-15.2) % Lymph % (Auto) 6.8 L (13.4-35.0) % [place] # (Auto) 1.2 H (0.0-0.8) K/mm3 Seg Neutrophils % 86.0 H (40.0-70.0) % Seg Neutrophils # 17.1 H (1.8-7.7) K/mm3 Sodium 147 H (137-145) mmol/L Carbon Dioxide 40 H (22-30) mmol/L Creatinine < 0.2 L (0.8-1.3) mg/dL Glucose 175 H (75-100) mg/dL POC Glucose 131 H (70-105) mg/dL 03/12/20 03/12/20 03/12/20 Range/Units 05:28 11:34 17:32 WBC (4.5-11.0) K/mm3 RBC (3.65-5.03) M/mm3 Hgb (11.8-15.2) gm/dl Hct (35.5-45.6) % RDW (13.2-15.2) % Lymph % (Auto) (13.4-35.0) % [place] # (Auto) (0.0-0.8) K/mm3 Seg Neutrophils % (40.0-70.0) % Seg Neutrophils # (1.8-7.7) K/mm3 Sodium (137-145) mmol/L Carbon Dioxide (22-30) mmol/L Creatinine (0.8-1.3) mg/dL Glucose (75-100) mg/dL POC Glucose 167 H 144 H 141 H (70-105) mg/dL HEART Score - HEART Score Troponin: Troponin T 0.034 ng/mL (0.00-0.029) H D 02/24/20 19:35
[2020-03-12] MEDS: ENOXAPARIN 40 MG/0.4 ML INJ SUB-Q SCH (22:02)
[2020-03-12] MEDS: DOCUSATE SODIUM 100 MG/10 ML ORAL LIQD PO SCH (22:02)
[2020-03-12] MEDS: POLYETHYLENE GLYCOL 3350 17 GM POWDER PO SCH (22:02)
[2020-03-13] MEDS: TAMSULOSIN 0.4 MG CAP PO SCH (09:07)
[2020-03-13] MEDS: DOCUSATE SODIUM 100 MG/10 ML ORAL LIQD PO SCH ×2 (09:07→21:53)
[2020-03-13] MEDS: LANSOPRAZOLE 30 MG SOLUTAB FEEDTUBE SCH (09:07)
[2020-03-13] MEDS: GLYCOPYRROLATE 2 MG TAB PO SCH ×3 (09:08→20:36)
[2020-03-13] MEDS: METOPROLOL TARTRATE 25 MG TAB PO SCH ×2 (09:08→21:53)
[2020-03-13] MEDS: MORPHINE 2 MG/1 ML INJ IV PRN ×3 (12:18→21:54)
--- NOTE | 2020-03-13 12:47 | Progress Note ---
Assessment and Plan Cultures: Blood culture no growth today SARS CoV2 PCR negative Sputum culture 03/03/2020 Stenotrophomonas Blood culture 03/03/2020 no growth today Blood culture 03/07/2020 no growth today Urine culture 03/08/2020 Izzy albicans Assessment: 59 years old male with history of ALS with chronic respiratory failure on home trilogy BiPAP, admitted on 02/24/2020 due to worsening shortness of breath for 24 hours: #Severe sepsis: likely due to bilateral pneumonia +/- left gluteal necrotic pressure ulcer. Fever resolved, leukocytosis improving #Severe bilateral pneumonia: Likely community-acquired pneumonia. Procalcitonin elevated-1.13. CTA shows no PE but multifocal pneumonia with predominance left lower lobe. No DVT on US. Elevated D-dimer -1311. SARS-CoV-2 PCR negative. Sputum culture +Stenotrophomonas. CRP 26-->4. Prcal 1.1-->1.6. Repeat CXR near complete atelectasis resolved. Completed cefepime and vancomycin on 03/06/2020. Completed levofloxacin for 7 days on 03/12/2020. #Left gluteal necrotic pressure ulcer: S/p debridement, not infected per wound care. #Acute on chronic mixed respiratory failure: Intubated, re intubated overnight. #ALS #Rule out urinary retention: straight cath no urine obtained, UA 03/08 w/o evidence of UTI. CT shows markedly distended bladder. Evaluated by urology, Reardon placed. Recommendations: -Monitor fever and leukocytosis -Continue off antibiotics Blanca Cueva MD, FACP [facility] ([facility] O: [phone] F: [phone] Subjective Date of service: 03/13/20 Principal diagnosis: Ac on Ch Hypercapnic & hypoxemic Resp Failure; Severe Sepsis; Jamar PNA; ALS Interval history: No fever. Remains intubated, on the vent. Opens eyes. Objective - Exam Narrative Exam: Physical Exam: Constitutional: Awake, intubated, on the vent Head, Ears, Nose: Normocephalic, atraumatic. External ears, nose normal Eyes: Conjunctivae/corneas clear. No icterus. No ptosis. Neck: intubated Oral: intubated Cardiovascular: S1, S2 + Respiratory: AE fair bilaterally and equal GI: Soft, bowel sounds + Musculoskeletal: No pedal edema, no cyanosis. Skin: No rash or abscess. Left buttock decubitus ulcer with dressing. Hem/Lymphatic: No palpable cervical or supraclavicular nodes. No lymphangitis Psych: no agitation Neurological: Awake, intubated, on the vent, exam limited. - Constitutional Vitals: Vital Signs Temp Pulse Resp BP Pulse Ox 98.9 F 102 H 14 126/84 98 03/13/20 12:00 03/13/20 12:04 03/13/20 12:18 03/13/20 12:04 03/13/20 12:04 Temperature -Last 24 Hours Temperature 98.9 F Temperature 98.9 F Temperature 98.9 F Temperature 98.8 F Temperature 98.4 F Temperature 98.7 F - Labs CBC & Chem 7: 03/12/20 04:39 03/12/20 04:39 Labs: Abnormal lab results 03/12/20 03/12/20 03/13/20 Range/Units 17:32 23:57 05:57 POC Glucose 141 H 137 H 161 H (70-105) mg/dL 03/13/20 Range/Units 12:28 POC Glucose 130 H (70-105) mg/dL
--- NOTE | 2020-03-13 15:06 | Progress Note ---
Assessment and Plan --Acute hypoxic hypercapnic respiratory failure; Intubated on mechanical ventilation. Etiology secondary to sepsis, ALS, multifocal pneumonia (Covid negative). S/p trach placement 03/07/20 --ALS; Chronic Continue to provide supportive care --Elevated D-dimers; CTA chest, lower extremity venous Doppler both are negative Lovenox for DVT prophylaxis --Bilateral pneumonia; probably community-acquired Continue cefepime and vancomycin ID recommendations appreciated --Sepsis secondary to pneumonia Continue cefepime and vancomycin --Elevated troponin; Serial cardiac enzymes, serial EKGs Echocardiogram, cardiology consult if needed --Hypernatremia Trend sodium Free water via feeding tube --Abdominal distention due to bladder outlet obstruction, resolved CT abdomen showed bladder outlet obstruction, urology consulted s/p drake placement by urology on 03/09 --Hypotension possibly from septic shock and bladder outlet obstruction improved following placing drake --Hypernatremia due to hypovolumia free water with TF and place on 1/2NS --DVT prophylaxis; Lovenox The high probability of a clinically significant, sudden or life threatening deterioration of the [cardiac, renal and respiratory] system(s) required my full and direct attention, intervention and personal management. The aggregate critical care time was [34] minutes. This time is in addition to time spent performing reported procedures but includes the following: [x] Data Review and interpretation [x] Patient assessment and monitoring of vital signs [x] Documentation [x] Medication orders and management Brief history: 59-year-old male patient with significant past medical history of ALS, presented to ED with worsening shortness of breath since the morning [employer]. Patient was on a trilogy machine for breathing 18/11. EMS arrived, patient had O2 sats in the 80s. EMS attempted to place patient on their CPAP machine, h owever patient did not tolerate. Patient was admitted to the ICU with diagnosis of acute hypoxic respiratory failure and placed on BiPAP. Patient initially tolerated but later deteriorated with respiratory status. CTA chest showed no PE but significant for bilateral pneumonia. Doppler ultrasound also negative for DVT. COVID-19 test ordered. Due to persistent hypoxia, patient was intubated on 02/26/2020 at 1500. Patient now on mechanical ventilation in the ICU s/p trach placement today. Daily course: 02/26/2020. Blood cultures are negative x48 hours and Covid testing negative as well. Continue antibiotics per ID recommendations for community-acquired bilateral pneumonia. Cardiology consultation for elevated troponin. Check echocardiogram. 02/27/2020. Events of yesterday noted with asystole following V. fib arrest. Patient currently on AC mode rate 20, tidal volume 400, FiO2 50% and a PEEP of 6. Follow-up echocardiogram for elevated troponin. Cardiology suspects NSTEMI Type 2 in the setting of acute resp failure. Chest CTA and BLE Dopplers neg. we will discontinue Decadron given the Covid PCR is negative. 02/28/2020. Spoke with the sister Felisa Eli who is the power of deputy attorney general regarding advanced directives and she instructed me that she would like to continue with aggressive care at this time. I informed her of the guarded prognosis and high mortality/morbidity and she voiced understanding. Patient currently with AC mode ventilation rate 18, tidal volume 400, FiO2 40% and a PEEP of 6. Continue antibiotics for pneumonia. ID previously consulted. Also consult neurology with regards to ALS. 02/29/2020; patient is intubated and on CPAP patient is alert and oriented. Patient has ALS. Dr. Álvarez spoke with his sister and she wants aggressive care. Continue antibiotics for pneumonia. Neurology consulted for ALS. Prognosis poor 03/01/2020; patient is intubated and on CPAP, patient is alert and oriented. I spoke with his 2 sisters about the management plan. 03/02/2020; patient is intubated and on CPAP. Patient was alert and oriented. I spoke with Dr. mohr and he thinks patient may need mechanical ventilation, likely his disease progressed. Dr. Flowers did debridement this morning. 03/03/2020; patient is intubated and on CPAP, patient was on trilogy and BiPAP at home. Patient has ALS. on spontaneous breathing trial. Patient is alert and oriented but quadriplegic. Patient has severe bilateral pneumonia and is on cefepime and Vanco, ID is following. Patient has sacral decubitus ulcer and debridement was done by Dr. Flowers and there is no osteomyelitis. 03/05. Patient still on broad-spectrum antibiotics. Status post sacral decubitus ulcer debridements-no osteomyelitis. Patient is on AC 25/400/30% PEEP 5. No blood gas results today. 03/06. Plan for tracheostomy by surgery. Still remains intubated. Labs reviewe d-sodium 150. Started on free water 200 every 8hr. trend sodium. 03/07: s/p trach placement today, patient placed back on mechanical ventilation with trach. Plan to resume tube feeding with NG tube. Continue to monitor vitals, monitor BMP. 03/08: Patient noted to have distended abdomen with low urinary output. Obtain bladder scan rule out urine retention, UA and urine culture, continue to follow clinically. 03/09: Patient noted to have low blood pressure with SBP as low as 70s. Ordered for 500 mils normal saline bolus. CT abdomen showed bladder outlet obstruction, urology consulted. 03/10: placed on drake by urology o/n, improved urine outpt. cont to monitor BMP. resuded TF - cont free water with TF. wean off from vent as tolerated. 03/11: Vitals stable. cont TF, wean off from vent as tolerated. start on 1/2 NS for hypernatremia - follow BMP 03/12: wean off vent as tolerated, plan for speech eval, cont Tf for now, cont iv fluid 03/13: unable to wean off from vent, unable to do speech therapy eval. will need PEG tube, cont supportive care for now, cont NG tube feeding Subjective Date of service: 03/13/20 Principal diagnosis: Ac on Ch Hypercapnic & hypoxemic Resp Failure; Severe Sepsis; Jamar PNA; ALS Interval history: Patient seen and examined Remains on mechanical ventilation with trach tube Discussed with RN at the bedside Vitals reviewed -BP stable Objective - Exam Narrative Exam: GENERAL: Awake. Intubated with trach tube HEAD: No signs of head trauma. EYES: Pupils are equal. Extraocular motions intact. EARS: Hearing grossly intact. MOUTH: Oropharynx is normal. NECK: No adenopathy, no JVD. CHEST: Coarse breath sounds bilaterally CARDIAC: Regular rate and rhythm. S1 and S2, without murmurs, gallops, or rubs. VASCULAR: No Edema. Peripheral pulses normal and equal in all extremities. ABDOMEN: Soft, non tender and nondistended. Bowel Sounds normal. NEUROLOGIC EXAM: Awake, paraplegic SKIN: No obvious lesions - Constitutional Vitals: Vital Signs - 12hr 03/13/20 03/13/20 03/13/20 03:30 03:53 04:00 Temperature 98.9 F Pulse Rate 90 104 H Pulse Rate [ From Monitor] Respiratory 12 23 Rate Blood Pressure 128/86 135/86 O2 Sat by Pulse 99 98 Oximetry O2 Sat by Pulse Oximetry [ Assessment] 03/13/20 03/13/20 03/13/20 04:30 04:37 04:43 Temperature Pulse Rate 115 H 106 H Pulse Rate [ From Monitor] Respiratory 15 Rate Blood Pressure 126/87 126/87 O2 Sat by Pulse 99 98 Oximetry O2 Sat by Pulse 99 Oximetry [ Assessment] 03/13/20 03/13/20 03/13/20 05:00 05:30 06:00 Temperature Pulse Rate 94 H 103 H 106 H Pulse Rate [ From Monitor] Respiratory 13 13 16 Rate Blood Pressure 129/82 132/89 112/78 O2 Sat by Pulse 97 97 97 Oximetry O2 Sat by Pulse Oximetry [ Assessment] 03/13/20 03/13/20 03/13/20 06:30 07:00 07:30 Temperature Pulse Rate 107 H 102 H 96 H Pulse Rate [ From Monitor] Respiratory 16 15 13 Rate Blood Pressure 116/80 115/81 118/79 O2 Sat by Pulse 96 99 Oximetry O2 Sat by Pulse Oximetry [ Assessment] 03/13/20 03/13/20 03/13/20 07:52 08:00 08:05 Temperature 98.9 F Pulse Rate 111 H 103 H 65 Pulse Rate [ 105 H From Monitor] Respiratory 18 20 Rate Blood Pressure 118/79 119/84 119/84 O2 Sat by Pulse 100 98 98 Oximetry O2 Sat by Pulse Oximetry [ Assessment] 03/13/20 03/13/20 03/13/20 08:18 08:30 09:00 Temperature Pulse Rate 113 H 118 H 109 H Pulse Rate [ From Monitor] Respiratory 16 15 Rate Blood Pressure 134/94 120/83 O2 Sat by Pulse 100 87 Oximetry O2 Sat by Pulse Oximetry [ Assessment] 03/13/20 03/13/20 03/13/20 09:01 09:08 09:30 Temperature Pulse Rate 100 H 106 H 99 H Pulse Rate [ From Monitor] Respiratory 14 15 Rate Blood Pressure 120/83 120/83 116/82 O2 Sat by Pulse 97 Oximetry O2 Sat by Pulse Oximetry [ Assessment] 03/13/20 03/13/20 03/13/20 10:00 10:30 11:00 Temperature Pulse Rate 101 H 97 H 105 H Pulse Rate [ From Monitor] Respiratory 19 21 21 Rate Blood Pressure 125/87 128/86 129/87 O2 Sat by Pulse 96 98 Oximetry O2 Sat by Pulse Oximetry [ Assessment] 03/13/20 03/13/20 03/13/20 11:30 12:00 12:04 Temperature 98.9 F Pulse Rate 108 H 100 H 102 H Pulse Rate [ 109 H From Monitor] Respiratory 23 25 H 15 Rate Blood Pressure 116/82 126/84 126/84 O2 Sat by Pulse 97 99 98 Oximetry O2 Sat by Pulse Oximetry [ Assessment] 03/13/20 03/13/20 12:18 14:49 Temperature Pulse Rate 97 H Pulse Rate [ From Monitor] Respiratory 14 21 Rate Blood Pressure 118/81 O2 Sat by Pulse 100 Oximetry O2 Sat by Pulse Oximetry [ Assessment] - Labs CBC & Chem 7: 03/15/20 08:06 03/15/20 08:06 Labs: Abnormal lab results 03/12/20 03/12/20 03/13/20 Range/Units 17:32 23:57 05:57 POC Glucose 141 H 137 H 161 H (70-105) mg/dL 03/13/20 Range/Units 12:28 POC Glucose 130 H (70-105) mg/dL HEART Score - HEART Score Troponin: Troponin T 0.034 ng/mL (0.00-0.029) H D 02/24/20 19:35
--- NOTE | 2020-03-13 15:17 | Progress Note ---
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 Respiratory Failure Severe Sepsis with Shock Bilateral Pneumonia (Possible aspiration) History of ALS on Trilogy Oropharyngeal Dysphagia PUI-COVID Acute toxic metabolic encephalopathy Elevated D-dimer Elevated troponin possibly type 2 ischemia - continue daytime t-piece trials as tolerated (PSV if fails) - repeat CXR prn +/- broncoscopy for mucus plugging / large volume atelectasis - continue to rest on AC qhs - continue Robinul & scopolamine for secretion control - LTAC evaluation is appropriate - prn electrolytes and optimize K+ & Mg 2+ for best respiratory muscle function - continue care as below otherwise; - continue daily SAT and SBT assessment as tolerated - wound care per RN/WCN - continue Scopolamine patch for secretion control - wean supplemental oxygen for target O2 sat's > 92% acutely - bronchodilators with pulmonary hygiene per RT - VAP bundle addressed - continue lung protective strategies - continue bronchodilators with pulmonary hygiene per RT - wean per pulmonary driven protocols otherwise - sedation prn for target RASS 0 to -1 - s/p empiric antiinfectives per ID rec's (Rocephin and Zithromax) - COVID-19 isolation (Airborne & Contact) - empiric Dexamethasone - follow COVID-19 test results (negative) - trend inflammatory markers to aid clinical decision making - enteral nutrition at goal rate as tolerated - Aspiration precautions - accuchecks with glycemic control per SSI (While critically ill target blood glucose of 140-180 mg/dL; avoid hypoglycemia) - avoid nephrotoxins, renally dose all medications - avoid benzodiazepine's, reduce the possibility of delirium - prn analgesia per CPOT score - Maintenance of sleep-wake cycle, avoid delirium - aspiration precautions - G.I. & VTE prophylaxis - PT/OT/ROM exercises - mobility protocols for pressure ulcer prophylaxis - Monitor hemodynamics closely - continue other care per attending / other consultants - discharge planning ongoing concurrently .... Re-evaluate in am & prn CONDITION: CRITICAL PROGNOSIS: GUARDED CODE STATUS: FULL CODE The high probability of a clinically significant, sudden or life-threatening deterioration of the [respiratory, cardiovascular & neurologic] system(s) required my full and direct attention, intervention and personal management. The aggregate critical care time was [36] minutes without overlap. Time includes spent on; [x] Data Review and interpretation [x] Patient assessment and monitoring of vital signs [x] Documentation [x] Medication orders and management Subjective Date of service: 03/13/20 Principal diagnosis: Ac on Ch Hypercapnic & hypoxemic Resp Failure; Severe Sepsis; Jamar PNA; ALS Interval history: Patient is seen today for: Acute on Chronic Hypercapnic & hypoxemic Respiratory Failure; Severe Sepsis with Shock; Bilateral Pneumonia (Possible aspiration); History of ALS on Trilogy; PUI-COVID; Acute toxic metabolic encephalopathy Seen and examined at bedside; 24hour events reviewed; nursing and respiratory care staff consulted; no adverse overnight events reported to me; resting in bed; remains on MVS; again failed t-piece trials rapiodly with desaturation to the 60's; back on PSV 01/31 now and tolerating well; no new issues otherwise Objective Vital Signs - 12hr 03/13/20 03/13/20 03/13/20 03:30 03:53 04:00 Temperature 98.9 F Pulse Rate 90 104 H Pulse Rate [ From Monitor] Respiratory 12 23 Rate Blood Pressure 128/86 135/86 O2 Sat by Pulse 99 98 Oximetry O2 Sat by Pulse Oximetry [ Assessment] 03/13/20 03/13/20 03/13/20 04:30 04:37 04:43 Temperature Pulse Rate 115 H 106 H Pulse Rate [ From Monitor] Respiratory 15 Rate Blood Pressure 126/87 126/87 O2 Sat by Pulse 99 98 Oximetry O2 Sat by Pulse 99 Oximetry [ Assessment] 03/13/20 03/13/20 03/13/20 05:00 05:30 06:00 Temperature Pulse Rate 94 H 103 H 106 H Pulse Rate [ From Monitor] Respiratory 13 13 16 Rate Blood Pressure 129/82 132/89 112/78 O2 Sat by Pulse 97 97 97 Oximetry O2 Sat by Pulse Oximetry [ Assessment] 03/13/20 03/13/20 03/13/20 06:30 07:00 07:30 Temperature Pulse Rate 107 H 102 H 96 H Pulse Rate [ From Monitor] Respiratory 16 15 13 Rate Blood Pressure 116/80 115/81 118/79 O2 Sat by Pulse 96 99 Oximetry O2 Sat by Pulse Oximetry [ Assessment] 03/13/20 03/13/20 03/13/20 07:52 08:00 08:05 Temperature 98.9 F Pulse Rate 111 H 103 H 65 Pulse Rate [ 105 H From Monitor] Respiratory 18 20 Rate Blood Pressure 118/79 119/84 119/84 O2 Sat by Pulse 100 98 98 Oximetry O2 Sat by Pulse Oximetry [ Assessment] 03/13/20 03/13/20 03/13/20 08:18 08:30 09:00 Temperature Pulse Rate 113 H 118 H 109 H Pulse Rate [ From Monitor] Respiratory 16 15 Rate Blood Pressure 134/94 120/83 O2 Sat by Pulse 100 87 Oximetry O2 Sat by Pulse Oximetry [ Assessment] 03/13/20 03/13/20 03/13/20 09:01 09:08 09:30 Temperature Pulse Rate 100 H 106 H 99 H Pulse Rate [ From Monitor] Respiratory 14 15 Rate Blood Pressure 120/83 120/83 116/82 O2 Sat by Pulse 97 Oximetry O2 Sat by Pulse Oximetry [ Assessment] 03/13/20 03/13/20 03/13/20 10:00 10:30 11:00 Temperature Pulse Rate 101 H 97 H 105 H Pulse Rate [ From Monitor] Respiratory 19 21 21 Rate Blood Pressure 125/87 128/86 129/87 O2 Sat by Pulse 96 98 Oximetry O2 Sat by Pulse Oximetry [ Assessment] 03/13/20 03/13/20 03/13/20 11:30 12:00 12:04 Temperature 98.9 F Pulse Rate 108 H 100 H 102 H Pulse Rate [ 109 H From Monitor] Respiratory 23 25 H 15 Rate Blood Pressure 116/82 126/84 126/84 O2 Sat by Pulse 97 99 98 Oximetry O2 Sat by Pulse Oximetry [ Assessment] 03/13/20 03/13/20 12:18 14:49 Temperature Pulse Rate 97 H Pulse Rate [ From Monitor] Respiratory 14 21 Rate Blood Pressure 118/81 O2 Sat by Pulse 100 Oximetry O2 Sat by Pulse Oximetry [ Assessment] Constitutional: no acute distress, other (thin middle aged male with mildly increased respiratory effort at rest on MVS) Eyes: non-icteric ENT: oropharynx moist, other (S/P Tracheostomy) Neck: supple, no lymphadenopathy, no JVD Effort: mildly labored Ascultation: Bilateral: clear, diminished breath sounds Percussion: Bilateral: not dull Cardiovascular: regular rate and rhythm, other (S1,S2, no murmurs) Gastrointestinal: normoactive bowel sounds, soft, non-tender, non-distended, other (+ distended but non tender suprapubis) Integumentary: normal, decubitus ulcer (sacral / gluteal) Extremities: no cyanosis, no edema, pulses normal, other (atrophic looking limbs) Neurologic: pupils equal and round, other (motor strength in extremities 1-2/5) Psychiatric: depressed CBC and BMP: 03/12/20 04:39 03/12/20 04:39 ABG, PT/INR, D-dimer: ABG ABG pH 7.371 (7.320-7.450) 03/08/20 12:34 POC ABG pCO2 63.1 mmHg (32.0-48.0) H 03/08/20 12:34 ABG pCO2 60.1 mm Hg 03/06/20 04:34 POC ABG pO2 90.5 mmHg (83-108) 03/08/20 12:34 ABG pO2 88.6 mm Hg (80.0-90.0) 03/06/20 04:34 POC ABG HCO3 35.7 03/08/20 12:34 ABG O2 Saturation 97.0 % (95.0-99.0) 03/06/20 04:34 PT/INR, D-dimer PT 15.6 Sec. (12.2-14.9) H 02/24/20 09:19 INR 1.21 (0.87-1.13) H 02/24/20 09:19 D-Dimer 1311.96 ng/mlDDU (0-234) H 02/24/20 09:19 Abnormal lab findings: Abnormal Labs 02/24/20 02/24/20 02/24/20 09:19 09:19 09:19 WBC 20.2 H RBC 5.05 H Hgb Hct MCV MCH RDW 15.3 H Plt Count Lymph % (Auto) Walsh # (Auto) Seg Neutrophils % Seg Neuts % (Manual) 86.0 H Lymphocytes % (Manual) 1.0 L Monocytes % (Manual) Seg Neutrophils # Seg Neutrophils # Man 17.4 H Lymphocytes # (Manual) 0.2 L Monocytes # (Manual) Eosinophils # (Manual) PT 15.6 H INR 1.21 H D-Dimer 1311.96 H ABG pH POC ABG pCO2 POC ABG pO2 ABG pO2 ABG HCO3 ABG O2 Saturation ABG Base Excess ABG Hemoglobin ABG Oxyhemoglobin ABG Potassium ABG Glucose Oxyhemoglobin Carboxyhemoglobin Sodium 135 L Potassium 3.2 L Chloride 92.2 L Carbon Dioxide BUN 6 L Creatinine < 0.2 L Glucose 124 H POC Glucose Ferritin Total Bilirubin 2.30 H Alkaline Phosphatase 132 H Lactate Dehydrogenase Troponin T 0.080 H C-Reactive Protein Total Protein Albumin 3.6 L Prealbumin LDL Cholesterol Direct 41 L Arterial Blood Glucose Arterial Blood Ionized Calcium Urine WBC (Auto) 02/24/20 02/24/20 02/24/20 09:19 09:58 10:01 WBC RBC Hgb Hct MCV MCH RDW Plt Count Lymph % (Auto) Walsh # (Auto) Seg Neutrophils % Seg Neuts % (Manual) Lymphocytes % (Manual) Monocytes % (Manual) Seg Neutrophils # Seg Neutrophils # Man Lymphocytes # (Manual) Monocytes # (Manual) Eosinophils # (Manual) PT INR D-Dimer ABG pH 7.176 L* POC ABG pCO2 POC ABG pO2 ABG pO2 91.2 H ABG HCO3 ABG O2 Saturation ABG Base Excess -4.6 L ABG Hemoglobin ABG Oxyhemoglobin ABG Potassium ABG Glucose Oxyhemoglobin 92.6 L Carboxyhemoglobin Sodium Potassium Chloride Carbon Dioxide BUN Creatinine Glucose POC Glucose Ferritin 1715.0 H Total Bilirubin Alkaline Phosphatase Lactate Dehydrogenase 303 H Troponin T C-Reactive Protein 26.10 H Total Protein Albumin Prealbumin LDL Cholesterol Direct Arterial Blood Glucose Arterial Blood Ionized Calcium Urine WBC (Auto) 02/24/20 02/24/20 02/24/20 11:52 13:45 19:35 WBC RBC Hgb Hct MCV MCH RDW Plt Count Lymph % (Auto) Walsh # (Auto) Seg Neutrophils % Seg Neuts % (Manual) Lymphocytes % (Manual) Monocytes % (Manual) Seg Neutrophils # Seg Neutrophils # Man Lymphocytes # (Manual) Monocytes # (Manual) Eosinophils # (Manual) PT INR D-Dimer ABG pH 7.051 L* 7.300 L POC ABG pCO2 POC ABG pO2 ABG pO2 94.7 H 75.1 L ABG HCO3 18.0 L ABG O2 Saturation 93.5 L ABG Base Excess -6.8 L -7.8 L ABG Hemoglobin 13.2 L 11.9 L ABG Oxyhemoglobin ABG Potassium ABG Glucose Oxyhemoglobin 91.0 L 92.7 L Carboxyhemoglobin Sodium Potassium Chloride Carbon Dioxide BUN Creatinine Glucose POC Glucose Ferritin Total Bilirubin Alkaline Phosphatase Lactate Dehydrogenase Troponin T 0.034 H D C-Reactive Protein Total Protein Albumin Prealbumin LDL Cholesterol Direct Arterial Blood Glucose Arterial Blood Ionized Calcium Urine WBC (Auto) 02/25/20 02/25/20 02/25/20 04:00 04:00 12:26 WBC 22.9 H RBC Hgb Hct MCV 83 L MCH 27 L RDW Plt Count 468 H Lymph % (Auto) Walsh # (Auto) Seg Neutrophils % Seg Neuts % (Manual) 89.0 H Lymphocytes % (Manual) 7.0 L Monocytes % (Manual) Seg Neutrophils # Seg Neutrophils # Man 20.4 H Lymphocytes # (Manual) Monocytes # (Manual) Eosinophils # (Manual) PT INR D-Dimer ABG pH POC ABG pCO2 POC ABG pO2 ABG pO2 ABG HCO3 ABG O2 Saturation ABG Base Excess ABG Hemoglobin ABG Oxyhemoglobin ABG Potassium 2.6 L ABG Glucose 142 H Oxyhemoglobin Carboxyhemoglobin Sodium Potassium 3.2 L Chloride Carbon Dioxide 18 L BUN Creatinine 0.2 L Glucose 114 H POC Glucose Ferritin Total Bilirubin Alkaline Phosphatase Lactate Dehydrogenase Troponin T C-Reactive Protein Total Protein Albumin 3.5 L Prealbumin LDL Cholesterol Direct Arterial Blood Glucose 142 H Arterial Blood Ionized Calcium Urine WBC (Auto) 02/26/20 02/26/20 02/26/20 15:58 17:00 23:43 WBC RBC Hgb Hct MCV MCH RDW Plt Count Lymph % (Auto) Walsh # (Auto) Seg Neutrophils % Seg Neuts % (Manual) Lymphocytes % (Manual) Monocytes % (Manual) Seg Neutrophils # Seg Neutrophils # Man Lymphocytes # (Manual) Monocytes # (Manual) Eosinophils # (Manual) PT INR D-Dimer ABG pH 7.502 H POC ABG pCO2 POC ABG pO2 213.6 H ABG pO2 ABG HCO3 ABG O2 Saturation ABG Base Excess ABG Hemoglobin ABG Oxyhemoglobin 99.2 H ABG Potassium 2.9 L ABG Glucose 160 H Oxyhemoglobin Carboxyhemoglobin 0.4 L Sodium Potassium Chloride Carbon Dioxide BUN Creatinine Glucose POC Glucose 189 H 120 H Ferritin Total Bilirubin Alkaline Phosphatase Lactate Dehydrogenase Troponin T C-Reactive Protein Total Protein Albumin Prealbumin LDL Cholesterol Direct Arterial Blood Glucose 160 H Arterial Blood Ionized Calcium 4.5 L Urine WBC (Auto) 02/27/20 02/27/20 02/27/20 05:00 07:04 17:45 WBC RBC Hgb Hct MCV MCH RDW Plt Count Lymph % (Auto) Walsh # (Auto) Seg Neutrophils % Seg Neuts % (Manual) Lymphocytes % (Manual) Monocytes % (Manual) Seg Neutrophils # Seg Neutrophils # Man Lymphocytes # (Manual) Monocytes # (Manual) Eosinophils # (Manual) PT INR D-Dimer ABG pH 7.524 H POC ABG pCO2 POC ABG pO2 ABG pO2 ABG HCO3 ABG O2 Saturation ABG Base Excess ABG Hemoglobin ABG Oxyhemoglobin ABG Potassium 3.0 L ABG Glucose 143 H Oxyhemoglobin Carboxyhemoglobin Sodium Potassium Chloride Carbon Dioxide BUN Creatinine Glucose POC Glucose 154 H 175 H Ferritin Total Bilirubin Alkaline Phosphatase Lactate Dehydrogenase Troponin T C-Reactive Protein Total Protein Albumin Prealbumin LDL Cholesterol Direct Arterial Blood Glucose 143 H Arterial Blood Ionized Calcium Urine WBC (Auto) 02/27/20 02/28/20 02/28/20 Unknown 00:21 04:15 WBC 18.7 H RBC Hgb Hct MCV MCH RDW Plt Count Lymph % (Auto) 8.7 L Walsh # (Auto) 1.2 H Seg Neutrophils % 84.6 H Seg Neuts % (Manual) Lymphocytes % (Manual) Monocytes % (Manual) Seg Neutrophils # 15.9 H Seg Neutrophils # Man Lymphocytes # (Manual) Monocytes # (Manual) Eosinophils # (Manual) PT INR D-Dimer ABG pH POC ABG pCO2 POC ABG pO2 ABG pO2 ABG HCO3 ABG O2 Saturation ABG Base Excess ABG Hemoglobin ABG Oxyhemoglobin ABG Potassium ABG Glucose Oxyhemoglobin Carboxyhemoglobin Sodium Potassium 2.9 L* Chloride Carbon Dioxide 33 H D BUN Creatinine < 0.2 L Glucose 157 H POC Glucose 134 H Ferritin Total Bilirubin Alkaline Phosphatase Lactate Dehydrogenase Troponin T C-Reactive Protein Total Protein Albumin Prealbumin LDL Cholesterol Direct Arterial Blood Glucose Arterial Blood Ionized Calcium Urine WBC (Auto) 02/28/20 02/28/20 02/28/20 04:15 05:16 05:39 WBC RBC Hgb Hct MCV MCH RDW Plt Count Lymph % (Auto) Walsh # (Auto) Seg Neutrophils % Seg Neuts % (Manual) Lymphocytes % (Manual) Monocytes % (Manual) Seg Neutrophils # Seg Neutrophils # Man Lymphocytes # (Manual) Monocytes # (Manual) Eosinophils # (Manual) PT INR D-Dimer ABG pH POC ABG pCO2 POC ABG pO2 ABG pO2 142.9 H ABG HCO3 34.1 H ABG O2 Saturation ABG Base Excess 8.3 H ABG Hemoglobin ABG Oxyhemoglobin ABG Potassium ABG Glucose Oxyhemoglobin Carboxyhemoglobin Sodium 151 H Potassium Chloride Carbon Dioxide 32 H BUN Creatinine 0.2 L Glucose 167 H POC Glucose 138 H Ferritin Total Bilirubin Alkaline Phosphatase Lactate Dehydrogenase Troponin T C-Reactive Protein Total Protein Albumin Prealbumin LDL Cholesterol Direct Arterial Blood Glucose Arterial Blood Ionized Calcium Urine WBC (Auto) 02/28/20 02/28/20 02/28/20 11:05 11:33 12:54 WBC RBC Hgb Hct MCV MCH RDW Plt Count Lymph % (Auto) Walsh # (Auto) Seg Neutrophils % Seg Neuts % (Manual) Lymphocytes % (Manual) Monocytes % (Manual) Seg Neutrophils # Seg Neutrophils # Man Lymphocytes # (Manual) Monocytes # (Manual) Eosinophils # (Manual) PT INR D-Dimer ABG pH POC ABG pCO2 POC ABG pO2 ABG pO2 ABG HCO3 ABG O2 Saturation ABG Base Excess ABG Hemoglobin ABG Oxyhemoglobin ABG Potassium ABG Glucose Oxyhemoglobin Carboxyhemoglobin Sodium Potassium Chloride Carbon Dioxide BUN Creatinine Glucose POC Glucose 160 H Ferritin Total Bilirubin Alkaline Phosphatase Lactate Dehydrogenase Troponin T C-Reactive Protein 4.70 H Total Protein Albumin Prealbumin 0.090 L LDL Cholesterol Direct Arterial Blood Glucose Arterial Blood Ionized Calcium Urine WBC (Auto) 02/28/20 02/29/20 02/29/20 17:34 00:44 04:05 WBC 19.6 H RBC Hgb Hct MCV MCH 27 L RDW 15.4 H Plt Count Lymph % (Auto) Walsh # (Auto) Seg Neutrophils % Seg Neuts % (Manual) 86.0 H Lymphocytes % (Manual) 7.0 L Monocytes % (Manual) Seg Neutrophils # Seg Neutrophils # Man 16.9 H Lymphocytes # (Manual) Monocytes # (Manual) 1.2 H Eosinophils # (Manual) PT INR D-Dimer ABG pH POC ABG pCO2 POC ABG pO2 ABG pO2 ABG HCO3 ABG O2 Saturation ABG Base Excess ABG Hemoglobin ABG Oxyhemoglobin ABG Potassium ABG Glucose Oxyhemoglobin Carboxyhemoglobin Sodium Potassium Chloride Carbon Dioxide BUN Creatinine Glucose POC Glucose 136 H 156 H Ferritin Total Bilirubin Alkaline Phosphatase Lactate Dehydrogenase Troponin T C-Reactive Protein Total Protein Albumin Prealbumin LDL Cholesterol Direct Arterial Blood Glucose Arterial Blood Ionized Calcium Urine WBC (Auto) 02/29/20 02/29/20 02/29/20 04:05 05:14 05:33 WBC RBC Hgb Hct MCV MCH RDW Plt Count Lymph % (Auto) Walsh # (Auto) Seg Neutrophils % Seg Neuts % (Manual) Lymphocytes % (Manual) Monocytes % (Manual) Seg Neutrophils # Seg Neutrophils # Man Lymphocytes # (Manual) Monocytes # (Manual) Eosinophils # (Manual) PT INR D-Dimer ABG pH POC ABG pCO2 54.3 H POC ABG pO2 124.8 H ABG pO2 ABG HCO3 ABG O2 Saturation ABG Base Excess ABG Hemoglobin ABG Oxyhemoglobin ABG Potassium ABG Glucose 185 H Oxyhemoglobin Carboxyhemoglobin Sodium 148 H Potassium Chloride Carbon Dioxide 33 H BUN Creatinine < 0.2 L Glucose 173 H POC Glucose 152 H Ferritin Total Bilirubin Alkaline Phosphatase Lactate Dehydrogenase Troponin T C-Reactive Protein Total Protein Albumin Prealbumin LDL Cholesterol Direct Arterial Blood Glucose 185 H Arterial Blood Ionized Calcium Urine WBC (Auto) 03/01/20 03/01/20 03/01/20 00:00 03:45 04:33 WBC 23.1 H RBC Hgb Hct MCV MCH 27 L RDW 15.3 H Plt Count Lymph % (Auto) Walsh # (Auto) Seg Neutrophils % Seg Neuts % (Manual) 92.0 H Lymphocytes % (Manual) 6.0 L Monocytes % (Manual) Seg Neutrophils # Seg Neutrophils # Man 21.3 H Lymphocytes # (Manual) Monocytes # (Manual) Eosinophils # (Manual) 0.5 H PT INR D-Dimer ABG pH 7.492 H POC ABG pCO2 POC ABG pO2 ABG pO2 157.1 H ABG HCO3 32.3 H ABG O2 Saturation ABG Base Excess 8.1 H ABG Hemoglobin 13.2 L ABG Oxyhemoglobin ABG Potassium ABG Glucose Oxyhemoglobin Carboxyhemoglobin Sodium Potassium Chloride Carbon Dioxide BUN Creatinine Glucose POC Glucose 109 H Ferritin Total Bilirubin Alkaline Phosphatase Lactate Dehydrogenase Troponin T C-Reactive Protein Total Protein Albumin Prealbumin LDL Cholesterol Direct Arterial Blood Glucose Arterial Blood Ionized Calcium Urine WBC (Auto) 03/01/20 03/01/20 03/01/20 04:33 05:29 12:32 WBC RBC Hgb Hct MCV MCH RDW Plt Count Lymph % (Auto) Walsh # (Auto) Seg Neutrophils % Seg Neuts % (Manual) Lymphocytes % (Manual) Monocytes % (Manual) Seg Neutrophils # Seg Neutrophils # Man Lymphocytes # (Manual) Monocytes # (Manual) Eosinophils # (Manual) PT INR D-Dimer ABG pH POC ABG pCO2 POC ABG pO2 ABG pO2 ABG HCO3 ABG O2 Saturation ABG Base Excess ABG Hemoglobin ABG Oxyhemoglobin ABG Potassium ABG Glucose Oxyhemoglobin Carboxyhemoglobin Sodium 146 H Potassium Chloride Carbon Dioxide 32 H BUN Creatinine < 0.2 L Glucose 120 H POC Glucose 120 H 128 H Ferritin Total Bilirubin Alkaline Phosphatase Lactate Dehydrogenase Troponin T C-Reactive Protein Total Protein Albumin Prealbumin LDL Cholesterol Direct Arterial Blood Glucose Arterial Blood Ionized Calcium Urine WBC (Auto) 03/01/20 03/01/20 03/02/20 17:38 23:46 06:13 WBC RBC Hgb Hct MCV MCH RDW Plt Count Lymph % (Auto) Walsh # (Auto) Seg Neutrophils % Seg Neuts % (Manual) Lymphocytes % (Manual) Monocytes % (Manual) Seg Neutrophils # Seg Neutrophils # Man Lymphocytes # (Manual) Monocytes # (Manual) Eosinophils # (Manual) PT INR D-Dimer ABG pH POC ABG pCO2 POC ABG pO2 ABG pO2 ABG HCO3 ABG O2 Saturation ABG Base Excess ABG Hemoglobin ABG Oxyhemoglobin ABG Potassium ABG Glucose Oxyhemoglobin Carboxyhemoglobin Sodium Potassium Chloride Carbon Dioxide BUN Creatinine Glucose POC Glucose 114 H 121 H 120 H Ferritin Total Bilirubin Alkaline Phosphatase Lactate Dehydrogenase Troponin T C-Reactive Protein Total Protein Albumin Prealbumin LDL Cholesterol Direct Arterial Blood Glucose Arterial Blood Ionized Calcium Urine WBC (Auto) 03/02/20 03/02/20 03/03/20 09:47 09:47 10:21 WBC 23.6 H RBC Hgb Hct MCV MCH RDW 15.3 H Plt Count 494 H Lymph % (Auto) Walsh # (Auto) Seg Neutrophils % Seg Neuts % (Manual) 85.0 H Lymphocytes % (Manual) 6.0 L Monocytes % (Manual) Seg Neutrophils # Seg Neutrophils # Man 20.1 H Lymphocytes # (Manual) Monocytes # (Manual) 1.7 H Eosinophils # (Manual) PT INR D-Dimer ABG pH POC ABG pCO2 POC ABG pO2 ABG pO2 ABG HCO3 ABG O2 Saturation ABG Base Excess ABG Hemoglobin ABG Oxyhemoglobin ABG Potassium 3.3 L ABG Glucose 158 H Oxyhemoglobin Carboxyhemoglobin Sodium Potassium Chloride Carbon Dioxide BUN Creatinine < 0.2 L Glucose 177 H POC Glucose Ferritin Total Bilirubin Alkaline Phosphatase Lactate Dehydrogenase Troponin T C-Reactive Protein Total Protein Albumin Prealbumin LDL Cholesterol Direct Arterial Blood Glucose 158 H Arterial Blood Ionized Calcium Urine WBC (Auto) 03/03/20 03/04/20 03/04/20 21:30 00:00 12:23 WBC RBC Hgb Hct MCV MCH RDW Plt Count Lymph % (Auto) Walsh # (Auto) Seg Neutrophils % Seg Neuts % (Manual) Lymphocytes % (Manual) Monocytes % (Manual) Seg Neutrophils # Seg Neutrophils # Man Lymphocytes # (Manual) Monocytes # (Manual) Eosinophils # (Manual) PT INR D-Dimer ABG pH 7.328 L POC ABG pCO2 POC ABG pO2 ABG pO2 68.4 L ABG HCO3 35.0 H ABG O2 Saturation 93.9 L ABG Base Excess 6.8 H ABG Hemoglobin 12.7 L ABG Oxyhemoglobin ABG Potassium ABG Glucose Oxyhemoglobin 91.9 L Carboxyhemoglobin Sodium Potassium Chloride Carbon Dioxide BUN Creatinine Glucose POC Glucose 187 H 163 H Ferritin Total Bilirubin Alkaline Phosphatase Lactate Dehydrogenase Troponin T C-Reactive Protein Total Protein Albumin Prealbumin LDL Cholesterol Direct Arterial Blood Glucose Arterial Blood Ionized Calcium Urine WBC (Auto) 03/04/20 03/04/20 03/05/20 18:15 21:30 06:02 WBC RBC Hgb Hct MCV MCH RDW Plt Count Lymph % (Auto) Walsh # (Auto) Seg Neutrophils % Seg Neuts % (Manual) Lymphocytes % (Manual) Monocytes % (Manual) Seg Neutrophils # Seg Neutrophils # Man Lymphocytes # (Manual) Monocytes # (Manual) Eosinophils # (Manual) PT INR D-Dimer ABG pH 7.297 L POC ABG pCO2 POC ABG pO2 ABG pO2 ABG HCO3 41.0 H ABG O2 Saturation ABG Base Excess 11.0 H ABG Hemoglobin 13.1 L ABG Oxyhemoglobin ABG Potassium ABG Glucose Oxyhemoglobin 94.5 L Carboxyhemoglobin Sodium Potassium Chloride Carbon Dioxide BUN Creatinine Glucose POC Glucose 192 H 127 H Ferritin Total Bilirubin Alkaline Phosphatase Lactate Dehydrogenase Troponin T C-Reactive Protein Total Protein Albumin Prealbumin LDL Cholesterol Direct Arterial Blood Glucose Arterial Blood Ionized Calcium Urine WBC (Auto) 03/05/20 03/05/20 03/06/20 12:09 16:42 00:24 WBC RBC Hgb Hct MCV MCH RDW Plt Count Lymph % (Auto) Walsh # (Auto) Seg Neutrophils % Seg Neuts % (Manual) Lymphocytes % (Manual) Monocytes % (Manual) Seg Neutrophils # Seg Neutrophils # Man Lymphocytes # (Manual) Monocytes # (Manual) Eosinophils # (Manual) PT INR D-Dimer ABG pH POC ABG pCO2 POC ABG pO2 ABG pO2 ABG HCO3 ABG O2 Saturation ABG Base Excess ABG Hemoglobin ABG Oxyhemoglobin ABG Potassium ABG Glucose Oxyhemoglobin Carboxyhemoglobin Sodium Potassium Chloride Carbon Dioxide BUN Creatinine Glucose POC Glucose 147 H 114 H 134 H Ferritin Total Bilirubin Alkaline Phosphatase Lactate Dehydrogenase Troponin T C-Reactive Protein Total Protein Albumin Prealbumin LDL Cholesterol Direct Arterial Blood Glucose Arterial Blood Ionized Calcium Urine WBC (Auto) 03/06/20 03/06/20 03/06/20 04:34 05:53 06:08 WBC 25.4 H RBC Hgb 10.5 L Hct 32.7 L MCV MCH 27 L RDW 15.3 H Plt Count 634 H Lymph % (Auto) Walsh # (Auto) Seg Neutrophils % Seg Neuts % (Manual) 88.0 H Lymphocytes % (Manual) 2.0 L Monocytes % (Manual) 8.0 H Seg Neutrophils # Seg Neutrophils # Man 22.4 H Lymphocytes # (Manual) 0.5 L Monocytes # (Manual) 2.0 H Eosinophils # (Manual) PT INR D-Dimer ABG pH POC ABG pCO2 POC ABG pO2 ABG pO2 ABG HCO3 37.9 H ABG O2 Saturation ABG Base Excess 11.4 H ABG Hemoglobin 10.6 L ABG Oxyhemoglobin ABG Potassium ABG Glucose Oxyhemoglobin 94.7 L Carboxyhemoglobin Sodium Potassium Chloride Carbon Dioxide BUN Creatinine Glucose POC Glucose 135 H Ferritin Total Bilirubin Alkaline Phosphatase Lactate Dehydrogenase Troponin T C-Reactive Protein Total Protein Albumin Prealbumin LDL Cholesterol Direct Arterial Blood Glucose Arterial Blood Ionized Calcium Urine WBC (Auto) 03/06/20 03/06/20 03/06/20 06:08 12:19 19:10 WBC RBC Hgb Hct MCV MCH RDW Plt Count Lymph % (Auto) Walsh # (Auto) Seg Neutrophils % Seg Neuts % (Manual) Lymphocytes % (Manual) Monocytes % (Manual) Seg Neutrophils # Seg Neutrophils # Man Lymphocytes # (Manual) Monocytes # (Manual) Eosinophils # (Manual) PT INR D-Dimer ABG pH POC ABG pCO2 POC ABG pO2 ABG pO2 ABG HCO3 ABG O2 Saturation ABG Base Excess ABG Hemoglobin ABG Oxyhemoglobin ABG Potassium ABG Glucose Oxyhemoglobin Carboxyhemoglobin Sodium 150 H D Potassium Chloride Carbon Dioxide 39 H D BUN 23 H Creatinine < 0.2 L Glucose 144 H POC Glucose 169 H 152 H Ferritin Total Bilirubin Alkaline Phosphatase Lactate Dehydrogenase Troponin T C-Reactive Protein Total Protein Albumin 3.3 L Prealbumin LDL Cholesterol Direct Arterial Blood Glucose Arterial Blood Ionized Calcium Urine WBC (Auto) 03/06/20 03/07/20 03/07/20 23:58 04:25 04:25 WBC 22.1 H RBC Hgb 10.9 L Hct 32.9 L MCV MCH RDW 15.5 H Plt Count 739 H Lymph % (Auto) 7.8 L Walsh # (Auto) 1.3 H Seg Neutrophils % 85.5 H Seg Neuts % (Manual) Lymphocytes % (Manual) Monocytes % (Manual) Seg Neutrophils # 18.9 H Seg Neutrophils # Man Lymphocytes # (Manual) Monocytes # (Manual) Eosinophils # (Manual) PT INR D-Dimer ABG pH POC ABG pCO2 POC ABG pO2 ABG pO2 ABG HCO3 ABG O2 Saturation ABG Base Excess ABG Hemoglobin ABG Oxyhemoglobin ABG Potassium ABG Glucose Oxyhemoglobin Carboxyhemoglobin Sodium 146 H Potassium Chloride Carbon Dioxide 37 H BUN Creatinine < 0.2 L Glucose 118 H POC Glucose 111 H Ferritin Total Bilirubin Alkaline Phosphatase Lactate Dehydrogenase Troponin T C-Reactive Protein Total Protein Albumin 3.7 L Prealbumin LDL Cholesterol Direct Arterial Blood Glucose Arterial Blood Ionized Calcium Urine WBC (Auto) 03/07/20 03/07/20 03/07/20 05:20 17:45 23:32 WBC RBC Hgb Hct MCV MCH RDW Plt Count Lymph % (Auto) Walsh # (Auto) Seg Neutrophils % Seg Neuts % (Manual) Lymphocytes % (Manual) Monocytes % (Manual) Seg Neutrophils # Seg Neutrophils # Man Lymphocytes # (Manual) Monocytes # (Manual) Eosinophils # (Manual) PT INR D-Dimer ABG pH POC ABG pCO2 POC ABG pO2 ABG pO2 ABG HCO3 ABG O2 Saturation ABG Base Excess ABG Hemoglobin ABG Oxyhemoglobin ABG Potassium ABG Glucose Oxyhemoglobin Carboxyhemoglobin Sodium Potassium Chloride Carbon Dioxide BUN Creatinine Glucose POC Glucose 113 H 124 H 210 H Ferritin Total Bilirubin Alkaline Phosphatase Lactate Dehydrogenase Troponin T C-Reactive Protein Total Protein Albumin Prealbumin LDL Cholesterol Direct Arterial Blood Glucose Arterial Blood Ionized Calcium Urine WBC (Auto) 03/08/20 03/08/20 03/08/20 05:35 06:43 06:43 WBC 28.9 H RBC 3.53 L Hgb 9.7 L Hct 30.3 L MCV MCH RDW 15.6 H Plt Count 578 H Lymph % (Auto) Walsh # (Auto) Seg Neutrophils % Seg Neuts % (Manual) 93.0 H Lymphocytes % (Manual) 4.0 L Monocytes % (Manual) Seg Neutrophils # Seg Neutrophils # Man 26.9 H Lymphocytes # (Manual) Monocytes # (Manual) Eosinophils # (Manual) PT INR D-Dimer ABG pH POC ABG pCO2 POC ABG pO2 ABG pO2 ABG HCO3 ABG O2 Saturation ABG Base Excess ABG Hemoglobin ABG Oxyhemoglobin ABG Potassium ABG Glucose Oxyhemoglobin Carboxyhemoglobin Sodium 146 H Potassium Chloride Carbon Dioxide 35 H BUN 34 H Creatinine 0.3 L D Glucose 125 H POC Glucose 147 H Ferritin Total Bilirubin Alkaline Phosphatase Lactate Dehydrogenase Troponin T C-Reactive Protein Total Protein 5.9 L Albumin 3.2 L Prealbumin LDL Cholesterol Direct Arterial Blood Glucose Arterial Blood Ionized Calcium Urine WBC (Auto) 03/08/20 03/08/20 03/08/20 08:57 11:14 12:34 WBC RBC Hgb Hct MCV MCH RDW Plt Count Lymph % (Auto) Walsh # (Auto) Seg Neutrophils % Seg Neuts % (Manual) Lymphocytes % (Manual) Monocytes % (Manual) Seg Neutrophils # Seg Neutrophils # Man Lymphocytes # (Manual) Monocytes # (Manual) Eosinophils # (Manual) PT INR D-Dimer ABG pH POC ABG pCO2 63.1 H POC ABG pO2 ABG pO2 ABG HCO3 ABG O2 Saturation ABG Base Excess ABG Hemoglobin 10.9 L ABG Oxyhemoglobin ABG Potassium ABG Glucose 176 H Oxyhemoglobin Carboxyhemoglobin Sodium Potassium Chloride Carbon Dioxide BUN Creatinine Glucose POC Glucose 171 H Ferritin Total Bilirubin Alkaline Phosphatase Lactate Dehydrogenase Troponin T C-Reactive Protein Total Protein Albumin Prealbumin LDL Cholesterol Direct Arterial Blood Glucose 176 H Arterial Blood Ionized Calcium 4.5 L Urine WBC (Auto) 10.0 H 03/08/20 03/08/20 03/09/20 18:02 23:43 05:49 WBC RBC Hgb Hct MCV MCH RDW Plt Count Lymph % (Auto) Walsh # (Auto) Seg Neutrophils % Seg Neuts % (Manual) Lymphocytes % (Manual) Monocytes % (Manual) Seg Neutrophils # Seg Neutrophils # Man Lymphocytes # (Manual) Monocytes # (Manual) Eosinophils # (Manual) PT INR D-Dimer ABG pH POC ABG pCO2 POC ABG pO2 ABG pO2 ABG HCO3 ABG O2 Saturation ABG Base Excess ABG Hemoglobin ABG Oxyhemoglobin ABG Potassium ABG Glucose Oxyhemoglobin Carboxyhemoglobin Sodium Potassium Chloride Carbon Dioxide BUN Creatinine Glucose POC Glucose 157 H 134 H 163 H Ferritin Total Bilirubin Alkaline Phosphatase Lactate Dehydrogenase Troponin T C-Reactive Protein Total Protein Albumin Prealbumin LDL Cholesterol Direct Arterial Blood Glucose Arterial Blood Ionized Calcium Urine WBC (Auto) 03/09/20 03/09/20 03/09/20 08:35 08:35 12:11 WBC 23.4 H RBC 3.36 L Hgb 9.3 L Hct 28.8 L MCV MCH RDW 15.9 H Plt Count 521 H Lymph % (Auto) Walsh # (Auto) Seg Neutrophils % Seg Neuts % (Manual) 87.0 H Lymphocytes % (Manual) 4.0 L Monocytes % (Manual) 9.0 H Seg Neutrophils # Seg Neutrophils # Man 20.4 H Lymphocytes # (Manual) 0.9 L Monocytes # (Manual) 2.1 H Eosinophils # (Manual) PT INR D-Dimer ABG pH POC ABG pCO2 POC ABG pO2 ABG pO2 ABG HCO3 ABG O2 Saturation ABG Base Excess ABG Hemoglobin ABG Oxyhemoglobin ABG Potassium ABG Glucose Oxyhemoglobin Carboxyhemoglobin Sodium 147 H Potassium Chloride Carbon Dioxide 37 H BUN 63 H Creatinine Glucose 154 H POC Glucose 128 H Ferritin Total Bilirubin Alkaline Phosphatase Lactate Dehydrogenase Troponin T C-Reactive Protein Total Protein Albumin Prealbumin LDL Cholesterol Direct Arterial Blood Glucose Arterial Blood Ionized Calcium Urine WBC (Auto) 03/09/20 03/10/20 03/10/20 17:51 00:25 05:41 WBC RBC Hgb Hct MCV MCH RDW Plt Count Lymph % (Auto) Walsh # (Auto) Seg Neutrophils % Seg Neuts % (Manual) Lymphocytes % (Manual) Monocytes % (Manual) Seg Neutrophils # Seg Neutrophils # Man Lymphocytes # (Manual) Monocytes # (Manual) Eosinophils # (Manual) PT INR D-Dimer ABG pH POC ABG pCO2 POC ABG pO2 ABG pO2 ABG HCO3 ABG O2 Saturation ABG Base Excess ABG Hemoglobin ABG Oxyhemoglobin ABG Potassium ABG Glucose Oxyhemoglobin Carboxyhemoglobin Sodium Potassium Chloride Carbon Dioxide BUN Creatinine Glucose POC Glucose 127 H 128 H 153 H Ferritin Total Bilirubin Alkaline Phosphatase Lactate Dehydrogenase Troponin T C-Reactive Protein Total Protein Albumin Prealbumin LDL Cholesterol Direct Arterial Blood Glucose Arterial Blood Ionized Calcium Urine WBC (Auto) 03/10/20 03/10/20 03/10/20 06:14 06:14 12:02 WBC 18.3 H RBC 3.45 L Hgb 9.5 L Hct 29.5 L MCV MCH RDW 16.1 H Plt Count 494 H Lymph % (Auto) Walsh # (Auto) Seg Neutrophils % Seg Neuts % (Manual) 95.0 H Lymphocytes % (Manual) 1.0 L Monocytes % (Manual) Seg Neutrophils # Seg Neutrophils # Man 17.4 H Lymphocytes # (Manual) 0.2 L Monocytes # (Manual) Eosinophils # (Manual) PT INR D-Dimer ABG pH POC ABG pCO2 POC ABG pO2 ABG pO2 ABG HCO3 ABG O2 Saturation ABG Base Excess ABG Hemoglobin ABG Oxyhemoglobin ABG Potassium ABG Glucose Oxyhemoglobin Carboxyhemoglobin Sodium 149 H Potassium Chloride Carbon Dioxide 35 H BUN 34 H Creatinine 0.2 L D Glucose 177 H POC Glucose 151 H Ferritin Total Bilirubin Alkaline Phosphatase Lactate Dehydrogenase Troponin T C-Reactive Protein Total Protein Albumin Prealbumin LDL Cholesterol Direct Arterial Blood Glucose Arterial Blood Ionized Calcium Urine WBC (Auto) 03/10/20 03/10/20 03/11/20 17:41 23:53 05:02 WBC RBC Hgb Hct MCV MCH RDW Plt Count Lymph % (Auto) Walsh # (Auto) Seg Neutrophils % Seg Neuts % (Manual) Lymphocytes % (Manual) Monocytes % (Manual) Seg Neutrophils # Seg Neutrophils # Man Lymphocytes # (Manual) Monocytes # (Manual) Eosinophils # (Manual) PT INR D-Dimer ABG pH POC ABG pCO2 POC ABG pO2 ABG pO2 ABG HCO3 ABG O2 Saturation ABG Base Excess ABG Hemoglobin ABG Oxyhemoglobin ABG Potassium ABG Glucose Oxyhemoglobin Carboxyhemoglobin Sodium Potassium Chloride Carbon Dioxide BUN Creatinine Glucose POC Glucose 168 H 142 H 146 H Ferritin Total Bilirubin Alkaline Phosphatase Lactate Dehydrogenase Troponin T C-Reactive Protein Total Protein Albumin Prealbumin LDL Cholesterol Direct Arterial Blood Glucose Arterial Blood Ionized Calcium Urine WBC (Auto) 03/11/20 03/11/20 03/11/20 11:30 14:01 14:01 WBC 19.7 H RBC 3.04 L Hgb 8.7 L Hct 25.8 L MCV MCH RDW 15.6 H Plt Count Lymph % (Auto) Walsh # (Auto) Seg Neutrophils % Seg Neuts % (Manual) Lymphocytes % (Manual) Monocytes % (Manual) Seg Neutrophils # Seg Neutrophils # Man Lymphocytes # (Manual) Monocytes # (Manual) Eosinophils # (Manual) PT INR D-Dimer ABG pH POC ABG pCO2 POC ABG pO2 ABG pO2 ABG HCO3 ABG O2 Saturation ABG Base Excess ABG Hemoglobin ABG Oxyhemoglobin ABG Potassium ABG Glucose Oxyhemoglobin Carboxyhemoglobin Sodium 151 H Potassium Chloride Carbon Dioxide 37 H BUN Creatinine < 0.2 L Glucose 171 H POC Glucose 248 H Ferritin Total Bilirubin Alkaline Phosphatase Lactate Dehydrogenase Troponin T C-Reactive Protein Total Protein Albumin Prealbumin LDL Cholesterol Direct Arterial Blood Glucose Arterial Blood Ionized Calcium Urine WBC (Auto) 03/11/20 03/11/20 03/12/20 17:09 23:52 04:39 WBC 19.9 H RBC 3.16 L Hgb 8.9 L Hct 27.5 L MCV MCH RDW 15.7 H Plt Count Lymph % (Auto) 6.8 L Walsh # (Auto) 1.2 H Seg Neutrophils % 86.0 H Seg Neuts % (Manual) Lymphocytes % (Manual) Monocytes % (Manual) Seg Neutrophils # 17.1 H Seg Neutrophils # Man Lymphocytes # (Manual) Monocytes # (Manual) Eosinophils # (Manual) PT INR D-Dimer ABG pH POC ABG pCO2 POC ABG pO2 ABG pO2 ABG HCO3 ABG O2 Saturation ABG Base Excess ABG Hemoglobin ABG Oxyhemoglobin ABG Potassium ABG Glucose Oxyhemoglobin Carboxyhemoglobin Sodium Potassium Chloride Carbon Dioxide BUN Creatinine Glucose POC Glucose 124 H 131 H Ferritin Total Bilirubin Alkaline Phosphatase Lactate Dehydrogenase Troponin T C-Reactive Protein Total Protein Albumin Prealbumin LDL Cholesterol Direct Arterial Blood Glucose Arterial Blood Ionized Calcium Urine WBC (Auto) 03/12/20 03/12/20 03/12/20 04:39 05:28 11:34 WBC RBC Hgb Hct MCV MCH RDW Plt Count Lymph % (Auto) Walsh # (Auto) Seg Neutrophils % Seg Neuts % (Manual) Lymphocytes % (Manual) Monocytes % (Manual) Seg Neutrophils # Seg Neutrophils # Man Lymphocytes # (Manual) Monocytes # (Manual) Eosinophils # (Manual) PT INR D-Dimer ABG pH POC ABG pCO2 POC ABG pO2 ABG pO2 ABG HCO3 ABG O2 Saturation ABG Base Excess ABG Hemoglobin ABG Oxyhemoglobin ABG Potassium ABG Glucose Oxyhemoglobin Carboxyhemoglobin Sodium 147 H Potassium Chloride Carbon Dioxide 40 H BUN Creatinine < 0.2 L Glucose 175 H POC Glucose 167 H 144 H Ferritin Total Bilirubin Alkaline Phosphatase Lactate Dehydrogenase Troponin T C-Reactive Protein Total Protein Albumin Prealbumin LDL Cholesterol Direct Arterial Blood Glucose Arterial Blood Ionized Calcium Urine WBC (Auto) 03/12/20 03/12/20 03/13/20 17:32 23:57 05:57 WBC RBC Hgb Hct MCV MCH RDW Plt Count Lymph % (Auto) Walsh # (Auto) Seg Neutrophils % Seg Neuts % (Manual) Lymphocytes % (Manual) Monocytes % (Manual) Seg Neutrophils # Seg Neutrophils # Man Lymphocytes # (Manual) Monocytes # (Manual) Eosinophils # (Manual) PT INR D-Dimer ABG pH POC ABG pCO2 POC ABG pO2 ABG pO2 ABG HCO3 ABG O2 Saturation ABG Base Excess ABG Hemoglobin ABG Oxyhemoglobin ABG Potassium ABG Glucose Oxyhemoglobin Carboxyhemoglobin Sodium Potassium Chloride Carbon Dioxide BUN Creatinine Glucose POC Glucose 141 H 137 H 161 H Ferritin Total Bilirubin Alkaline Phosphatase Lactate Dehydrogenase Troponin T C-Reactive Protein Total Protein Albumin Prealbumin LDL Cholesterol Direct Arterial Blood Glucose Arterial Blood Ionized Calcium Urine WBC (Auto) 03/13/20 12:28 WBC RBC Hgb Hct MCV MCH RDW Plt Count Lymph % (Auto) Walsh # (Auto) Seg Neutrophils % Seg Neuts % (Manual) Lymphocytes % (Manual) Monocytes % (Manual) Seg Neutrophils # Seg Neutrophils # Man Lymphocytes # (Manual) Monocytes # (Manual) Eosinophils # (Manual) PT INR D-Dimer ABG pH POC ABG pCO2 POC ABG pO2 ABG pO2 ABG HCO3 ABG O2 Saturation ABG Base Excess ABG Hemoglobin ABG Oxyhemoglobin ABG Potassium ABG Glucose Oxyhemoglobin Carboxyhemoglobin Sodium Potassium Chloride Carbon Dioxide BUN Creatinine Glucose POC Glucose 130 H Ferritin Total Bilirubin Alkaline Phosphatase Lactate Dehydrogenase Troponin T C-Reactive Protein Total Protein Albumin Prealbumin LDL Cholesterol Direct Arterial Blood Glucose Arterial Blood Ionized Calcium Urine WBC (Auto) Chest x-ray: other (none today) Allied health notes reviewed: nursing
[2020-03-13 15:51] LABS: Blood Urea Nitrogen 17 mg/dL (9-20); Calcium 8.5 mg/dL (8.4-10.2); Hemolysis Index 0
[2020-03-13 15:59] LABS: BUN/Creatinine Ratio 85
[2020-03-13] MEDS: SODIUM CHLORIDE 0.45% 1000 ML 1,000 ML IV SCH (17:28)
[2020-03-13] MEDS: POLYETHYLENE GLYCOL 3350 17 GM POWDER PO SCH (21:53)
[2020-03-13] MEDS: ENOXAPARIN 40 MG/0.4 ML INJ SUB-Q SCH (21:55)
[2020-03-14] MEDS: MORPHINE 2 MG/1 ML INJ IV PRN ×5 (01:27→20:43)
[2020-03-14] MEDS: SODIUM CHLORIDE 0.45% 1000 ML 1,000 ML IV SCH (06:10)
[2020-03-14 08:57] LABS: Hematocrit 23.9 % (35.5-45.6); Hemoglobin 7.9 gm/dl (11.8-15.2); Mean Corpuscular HGB Conc 33 % (32-34); Mean Corpuscular Volume 85 fl (84-94); Platelet Count 331 K/mm3 (140-440); Red Blood Count 2.81 M/mm3 (3.65-5.03); Red Cell Distribution Width 15.9 % (13.2-15.2)
[2020-03-14] MEDS: DOCUSATE SODIUM 100 MG/10 ML ORAL LIQD PO SCH ×2 (08:59→21:57)
[2020-03-14] MEDS: GLYCOPYRROLATE 2 MG TAB PO SCH ×3 (08:59→20:43)
[2020-03-14] MEDS: LANSOPRAZOLE 30 MG SOLUTAB FEEDTUBE SCH (09:00)
[2020-03-14] MEDS: TAMSULOSIN 0.4 MG CAP PO SCH (09:00)
[2020-03-14 09:18] LABS: Blood Urea Nitrogen 16 mg/dL (9-20); Calcium 8.3 mg/dL (8.4-10.2); Hemolysis Index 1
[2020-03-14 09:34] LABS: BUN/Creatinine Ratio 80
[2020-03-14] MEDS: METOPROLOL TARTRATE 25 MG TAB PO SCH ×2 (10:56→21:58)
[2020-03-14 11:51] LABS: Basophils % (Manual) 0 % (0.0-1.8); Total Cells Counted 100
[2020-03-14 11:52] LABS: RBC Morphology Normal
[2020-03-14 11:53] LABS: Macrocytosis Rare
[2020-03-14 11:54] LABS: Platelet Estimate Consistent w Auto
--- NOTE | 2020-03-14 13:31 | Progress Note ---
Assessment and Plan Cultures: Blood culture no growth today SARS CoV2 PCR negative Sputum culture 03/03/2020 Stenotrophomonas Blood culture 03/03/2020 no growth today Blood culture 03/07/2020 no growth today Urine culture 03/08/2020 Izzy albicans Assessment: 59 years old male with history of ALS with chronic respiratory failure on home trilogy BiPAP, admitted on 02/24/2020 due to worsening shortness of breath for 24 hours: #Severe sepsis: likely due to bilateral pneumonia +/- left gluteal necrotic pressure ulcer. Fever resolved, leukocytosis improving #Severe bilateral pneumonia: Likely community-acquired pneumonia. Procalcitonin elevated-1.13. CTA shows no PE but multifocal pneumonia with predominance left lower lobe. No DVT on US. Elevated D-dimer -1311. SARS-CoV-2 PCR negative. Sputum culture +Stenotrophomonas. CRP 26-->4. Prcal 1.1-->1.6. Repeat CXR near complete atelectasis resolved. Completed cefepime and vancomycin on 03/06/2020. Completed levofloxacin for 7 days on 03/12/2020. #Left gluteal necrotic pressure ulcer: S/p debridement, not infected per wound care. #Acute on chronic mixed respiratory failure: Intubated, re intubated overnight. #ALS #Rule out urinary retention: straight cath no urine obtained, UA 03/08 w/o evidence of UTI. CT shows markedly distended bladder. Evaluated by urology, Reardon placed. Recommendations: -Monitor fever and leukocytosis -Continue off antibiotics Blanca Cueva MD, FACP [facility], [place], [facility] ([facility] O: [phone] F: [phone] Subjective Date of service: 03/14/20 Principal diagnosis: Ac on Ch Hypercapnic & hypoxemic Resp Failure; Severe Sepsis; Jamar PNA; ALS Interval history: Awake, no fever. Remains on the vent via trach. Objective - Exam Narrative Exam: Physical Exam: Constitutional: Awake, on the vent Head, Ears, Nose: Normocephalic, atraumatic. External ears, nose normal Eyes: Conjunctivae/corneas clear. No icterus. No ptosis. Neck: trach + Cardiovascular: S1, S2 + Respiratory: AE fair bilaterally and equal GI: Soft, bowel sounds + Musculoskeletal: No pedal edema, no cyanosis. Skin: No rash or abscess. Left buttock decubitus ulcer with dressing. Hem/Lymphatic: No palpable cervical or supraclavicular nodes. No lymphangitis Psych: no agitation Neurological: Awake, on the vent, exam limited. - Constitutional Vitals: Vital Signs Temp Pulse Resp BP Pulse Ox 98.9 F 106 H 15 105/75 99 03/14/20 12:00 03/14/20 12:00 03/14/20 12:00 03/14/20 12:00 03/14/20 12:00 Temperature -Last 24 Hours Temperature 98.9 F Temperature 99.2 F Temperature 98.9 F Temperature 98.8 F Temperature 99.3 F Temperature 98 F - Labs CBC & Chem 7: 03/14/20 08:07 03/14/20 08:07 Labs: Abnormal lab results 03/13/20 03/13/20 03/13/20 Range/Units 14:14 18:39 23:33 WBC (4.5-11.0) K/mm3 RBC (3.65-5.03) M/mm3 Hgb (11.8-15.2) gm/dl Hct (35.5-45.6) % RDW (13.2-15.2) % Seg Neuts % (Manual) (40.0-70.0) % Lymphocytes % (Manual) (13.4-35.0) % Seg Neutrophils # Man (1.8-7.7) K/mm3 Chloride (98-107) mmol/L Carbon Dioxide 39 H (22-30) mmol/L Creatinine < 0.2 L (0.8-1.3) mg/dL Glucose 129 H (75-100) mg/dL POC Glucose 125 H 146 H (70-105) mg/dL Calcium (8.4-10.2) mg/dL 03/14/20 03/14/20 03/14/20 Range/Units 05:24 08:07 08:07 WBC 16.8 H (4.5-11.0) K/mm3 RBC 2.81 L (3.65-5.03) M/mm3 Hgb 7.9 L (11.8-15.2) gm/dl Hct 23.9 L (35.5-45.6) % RDW 15.9 H (13.2-15.2) % Seg Neuts % (Manual) 84.0 H (40.0-70.0) % Lymphocytes % (Manual) 10.0 L (13.4-35.0) % Seg Neutrophils # Man 14.1 H (1.8-7.7) K/mm3 Chloride 97.0 L (98-107) mmol/L Carbon Dioxide 37 H (22-30) mmol/L Creatinine < 0.2 L (0.8-1.3) mg/dL Glucose 129 H (75-100) mg/dL POC Glucose 125 H (70-105) mg/dL Calcium 8.3 L (8.4-10.2) mg/dL 03/14/20 Range/Units 12:21 WBC (4.5-11.0) K/mm3 RBC (3.65-5.03) M/mm3 Hgb (11.8-15.2) gm/dl Hct (35.5-45.6) % RDW (13.2-15.2) % Seg Neuts % (Manual) (40.0-70.0) % Lymphocytes % (Manual) (13.4-35.0) % Seg Neutrophils # Man (1.8-7.7) K/mm3 Chloride (98-107) mmol/L Carbon Dioxide (22-30) mmol/L Creatinine (0.8-1.3) mg/dL Glucose (75-100) mg/dL POC Glucose 109 H (70-105) mg/dL Calcium (8.4-10.2) mg/dL
--- NOTE | 2020-03-14 14:56 | Progress Note ---
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 Respiratory Failure Severe Sepsis with Shock Bilateral Pneumonia (Possible aspiration) History of ALS on Trilogy Oropharyngeal Dysphagia PUI-COVID Acute toxic metabolic encephalopathy Elevated D-dimer Elevated troponin possibly type 2 ischemia - continue daytime t-piece trials as tolerated (PSV if fails) - repeat CXR prn +/- broncoscopy for mucus plugging / large volume atelectasis - continue to rest on AC qhs - LTAC evaluation is appropriate - continue care as below otherwise; - continue Robinul & scopolamine for secretion control - prn electrolytes and optimize K+ & Mg 2+ for best respiratory muscle function - continue daily SAT and SBT assessment as tolerated - wound care per RN/WCN - continue Scopolamine patch for secretion control - wean supplemental oxygen for target O2 sat's > 92% acutely - bronchodilators with pulmonary hygiene per RT - VAP bundle addressed - continue lung protective strategies - continue bronchodilators with pulmonary hygiene per RT - wean per pulmonary driven protocols otherwise - sedation prn for target RASS 0 to -1 - s/p empiric antiinfectives per ID rec's (Rocephin and Zithromax) - COVID-19 isolation (Airborne & Contact) - empiric Dexamethasone - follow COVID-19 test results (negative) - trend inflammatory markers to aid clinical decision making - enteral nutrition at goal rate as tolerated - Aspiration precautions - accuchecks with glycemic control per SSI (While critically ill target blood glucose of 140-180 mg/dL; avoid hypoglycemia) - avoid nephrotoxins, renally dose all medications - avoid benzodiazepine's, reduce the possibility of delirium - prn analgesia per CPOT score - Maintenance of sleep-wake cycle, avoid delirium - aspiration precautions - G.I. & VTE prophylaxis - PT/OT/ROM exercises - mobility protocols for pressure ulcer prophylaxis - Monitor hemodynamics closely - continue other care per attending / other consultants - discharge planning ongoing concurrently .... Re-evaluate in am & prn CONDITION: CRITICAL PROGNOSIS: GUARDED CODE STATUS: FULL CODE The high probability of a clinically significant, sudden or life-threatening deterioration of the [respiratory, cardiovascular & neurologic] system(s) required my full and direct attention, intervention and personal management. The aggregate critical care time was [32] minutes without overlap. Time includes spent on; [x] Data Review and interpretation [x] Patient assessment and monitoring of vital signs [x] Documentation [x] Medication orders and management Subjective Date of service: 03/14/20 Principal diagnosis: Ac on Ch Hypercapnic & hypoxemic Resp Failure; Severe Sepsis; Jamar PNA; ALS Interval history: Patient is seen today for: Acute on Chronic Hypercapnic & hypoxemic Respiratory Failure; Severe Sepsis with Shock; Bilateral Pneumonia (Possible aspiration); History of ALS on Trilogy; PUI-COVID; Acute toxic metabolic encephalopathy Seen and examined at bedside; 24hour events reviewed; nursing and respiratory care staff consulted; no adverse overnight events reported to me; resting in bed; remains on MVS; continues to fail t-piece trials but tolerating PSV Objective Vital Signs - 12hr 03/14/20 03/14/20 03/14/20 03:00 03:20 03:30 Temperature Pulse Rate 99 H 116 H Pulse Rate [ From Monitor] Respiratory 14 18 Rate Blood Pressure 103/66 91/57 O2 Sat by Pulse 99 99 Oximetry O2 Sat by Pulse 100 Oximetry [ Assessment] 03/14/20 03/14/20 03/14/20 03:36 04:00 04:30 Temperature 98.9 F Pulse Rate 111 H 113 H Pulse Rate [ 111 H From Monitor] Respiratory 19 19 Rate Blood Pressure 93/63 98/67 O2 Sat by Pulse 98 99 Oximetry O2 Sat by Pulse Oximetry [ Assessment] 03/14/20 03/14/20 03/14/20 04:36 05:00 05:30 Temperature Pulse Rate 108 H 111 H 105 H Pulse Rate [ From Monitor] Respiratory 16 18 Rate Blood Pressure 98/67 102/69 106/75 O2 Sat by Pulse 99 99 99 Oximetry O2 Sat by Pulse Oximetry [ Assessment] 03/14/20 03/14/20 03/14/20 06:00 06:16 06:30 Temperature Pulse Rate 103 H 98 H 96 H Pulse Rate [ From Monitor] Respiratory 19 18 17 Rate Blood Pressure 102/74 102/74 97/66 O2 Sat by Pulse 100 100 100 Oximetry O2 Sat by Pulse Oximetry [ Assessment] 03/14/20 03/14/20 03/14/20 06:46 07:00 07:16 Temperature Pulse Rate 102 H 104 H 107 H Pulse Rate [ From Monitor] Respiratory 17 18 19 Rate Blood Pressure 102/74 102/67 102/67 O2 Sat by Pulse 100 100 100 Oximetry O2 Sat by Pulse Oximetry [ Assessment] 03/14/20 03/14/20 03/14/20 07:30 07:46 07:52 Temperature Pulse Rate 106 H 100 H 102 H Pulse Rate [ From Monitor] Respiratory 17 19 Rate Blood Pressure 98/69 98/69 O2 Sat by Pulse 100 100 Oximetry O2 Sat by Pulse Oximetry [ Assessment] 03/14/20 03/14/20 03/14/20 07:59 08:00 08:16 Temperature 99.2 F Pulse Rate 106 H 102 H 103 H Pulse Rate [ 106 H From Monitor] Respiratory 17 18 18 Rate Blood Pressure 98/69 97/76 97/76 O2 Sat by Pulse 100 100 99 Oximetry O2 Sat by Pulse Oximetry [ Assessment] 03/14/20 03/14/20 03/14/20 08:30 08:46 09:00 Temperature Pulse Rate 103 H 107 H 104 H Pulse Rate [ From Monitor] Respiratory 19 19 20 Rate Blood Pressure 103/69 103/69 101/70 O2 Sat by Pulse 100 100 100 Oximetry O2 Sat by Pulse Oximetry [ Assessment] 03/14/20 03/14/20 03/14/20 09:04 09:16 09:30 Temperature Pulse Rate 106 H 99 H Pulse Rate [ From Monitor] Respiratory 22 18 21 Rate Blood Pressure 100/71 104/72 O2 Sat by Pulse 100 100 Oximetry O2 Sat by Pulse Oximetry [ Assessment] 03/14/20 03/14/20 03/14/20 09:34 09:46 10:00 Temperature Pulse Rate 102 H 104 H Pulse Rate [ From Monitor] Respiratory 13 20 22 Rate Blood Pressure 104/72 101/77 O2 Sat by Pulse 100 100 Oximetry O2 Sat by Pulse Oximetry [ Assessment] 03/14/20 03/14/20 03/14/20 10:16 10:30 10:46 Temperature Pulse Rate 107 H 105 H 109 H Pulse Rate [ From Monitor] Respiratory 23 20 19 Rate Blood Pressure 101/77 103/73 103/73 O2 Sat by Pulse 100 100 100 Oximetry O2 Sat by Pulse Oximetry [ Assessment] 03/14/20 03/14/20 03/14/20 10:56 11:00 11:16 Temperature Pulse Rate 106 H 103 H 109 H Pulse Rate [ From Monitor] Respiratory 13 12 Rate Blood Pressure 103/73 135/81 135/81 O2 Sat by Pulse 93 99 Oximetry O2 Sat by Pulse Oximetry [ Assessment] 03/14/20 03/14/20 03/14/20 11:30 11:42 11:46 Temperature Pulse Rate 107 H 103 H 108 H Pulse Rate [ From Monitor] Respiratory 12 13 16 Rate Blood Pressure 107/73 135/81 107/73 O2 Sat by Pulse 99 93 99 Oximetry O2 Sat by Pulse Oximetry [ Assessment] 03/14/20 03/14/20 03/14/20 12:00 12:16 12:30 Temperature 98.9 F Pulse Rate 100 H 105 H 108 H Pulse Rate [ 106 H From Monitor] Respiratory 15 20 17 Rate Blood Pressure 105/75 105/75 112/77 O2 Sat by Pulse 99 99 100 Oximetry O2 Sat by Pulse Oximetry [ Assessment] 03/14/20 03/14/20 03/14/20 12:46 13:00 13:16 Temperature Pulse Rate 105 H 110 H 106 H Pulse Rate [ From Monitor] Respiratory 22 19 19 Rate Blood Pressure 112/77 115/83 115/83 O2 Sat by Pulse 98 98 99 Oximetry O2 Sat by Pulse Oximetry [ Assessment] 03/14/20 03/14/20 03/14/20 13:30 13:46 14:00 Temperature Pulse Rate 105 H 108 H 106 H Pulse Rate [ From Monitor] Respiratory 26 H 22 17 Rate Blood Pressure 124/91 124/91 114/79 O2 Sat by Pulse 99 99 99 Oximetry O2 Sat by Pulse Oximetry [ Assessment] 03/14/20 14:43 Temperature Pulse Rate Pulse Rate [ From Monitor] Respiratory 29 H Rate Blood Pressure O2 Sat by Pulse Oximetry O2 Sat by Pulse Oximetry [ Assessment] Constitutional: no acute distress, other (thin middle aged male with normal respiratory effort at rest on MVS) Eyes: non-icteric ENT: oropharynx moist, other (S/P Tracheostomy) Neck: supple, no lymphadenopathy, no JVD Effort: mildly labored Ascultation: Bilateral: clear, diminished breath sounds Percussion: Bilateral: not dull Cardiovascular: regular rate and rhythm, other (S1,S2, no murmurs) Gastrointestinal: normoactive bowel sounds, soft, non-tender, non-distended, other (+ distended but non tender suprapubis) Integumentary: normal, decubitus ulcer (sacral / gluteal) Extremities: no cyanosis, no edema, pulses normal, other (atrophic looking limbs) Neurologic: pupils equal and round, other (motor strength in extremities 1-2/5) Psychiatric: depressed CBC and BMP: 03/14/20 08:07 03/14/20 08:07 ABG, PT/INR, D-dimer: ABG ABG pH 7.371 (7.320-7.450) 03/08/20 12:34 POC ABG pCO2 63.1 mmHg (32.0-48.0) H 03/08/20 12:34 ABG pCO2 60.1 mm Hg 03/06/20 04:34 POC ABG pO2 90.5 mmHg (83-108) 03/08/20 12:34 ABG pO2 88.6 mm Hg (80.0-90.0) 03/06/20 04:34 POC ABG HCO3 35.7 03/08/20 12:34 ABG O2 Saturation 97.0 % (95.0-99.0) 03/06/20 04:34 PT/INR, D-dimer PT 15.6 Sec. (12.2-14.9) H 02/24/20 09:19 INR 1.21 (0.87-1.13) H 02/24/20 09:19 D-Dimer 1311.96 ng/mlDDU (0-234) H 02/24/20 09:19 Abnormal lab findings: Abnormal Labs 02/24/20 02/24/20 02/24/20 09:19 09:19 09:19 WBC 20.2 H RBC 5.05 H Hgb Hct MCV MCH RDW 15.3 H Plt Count Lymph % (Auto) [place] # (Auto) Seg Neutrophils % Seg Neuts % (Manual) 86.0 H Lymphocytes % (Manual) 1.0 L Monocytes % (Manual) Seg Neutrophils # Seg Neutrophils # Man 17.4 H Lymphocytes # (Manual) 0.2 L Monocytes # (Manual) Eosinophils # (Manual) PT 15.6 H INR 1.21 H D-Dimer 1311.96 H ABG pH POC ABG pCO2 POC ABG pO2 ABG pO2 ABG HCO3 ABG O2 Saturation ABG Base Excess ABG Hemoglobin ABG Oxyhemoglobin ABG Potassium ABG Glucose Oxyhemoglobin Carboxyhemoglobin Sodium 135 L Potassium 3.2 L Chloride 92.2 L Carbon Dioxide BUN 6 L Creatinine < 0.2 L Glucose 124 H POC Glucose Calcium Ferritin Total Bilirubin 2.30 H Alkaline Phosphatase 132 H Lactate Dehydrogenase Troponin T 0.080 H C-Reactive Protein Total Protein Albumin 3.6 L Prealbumin LDL Cholesterol Direct 41 L Arterial Blood Glucose Arterial Blood Ionized Calcium Urine WBC (Auto) 02/24/20 02/24/20 02/24/20 09:19 09:58 10:01 WBC RBC Hgb Hct MCV MCH RDW Plt Count Lymph % (Auto) [place] # (Auto) Seg Neutrophils % Seg Neuts % (Manual) Lymphocytes % (Manual) Monocytes % (Manual) Seg Neutrophils # Seg Neutrophils # Man Lymphocytes # (Manual) Monocytes # (Manual) Eosinophils # (Manual) PT INR D-Dimer ABG pH 7.176 L* POC ABG pCO2 POC ABG pO2 ABG pO2 91.2 H ABG HCO3 ABG O2 Saturation ABG Base Excess -4.6 L ABG Hemoglobin ABG Oxyhemoglobin ABG Potassium ABG Glucose Oxyhemoglobin 92.6 L Carboxyhemoglobin Sodium Potassium Chloride Carbon Dioxide BUN Creatinine Glucose POC Glucose Calcium Ferritin 1715.0 H Total Bilirubin Alkaline Phosphatase Lactate Dehydrogenase 303 H Troponin T C-Reactive Protein 26.10 H Total Protein Albumin Prealbumin LDL Cholesterol Direct Arterial Blood Glucose Arterial Blood Ionized Calcium Urine WBC (Auto) 02/24/20 02/24/20 02/24/20 11:52 13:45 19:35 WBC RBC Hgb Hct MCV MCH RDW Plt Count Lymph % (Auto) [place] # (Auto) Seg Neutrophils % Seg Neuts % (Manual) Lymphocytes % (Manual) Monocytes % (Manual) Seg Neutrophils # Seg Neutrophils # Man Lymphocytes # (Manual) Monocytes # (Manual) Eosinophils # (Manual) PT INR D-Dimer ABG pH 7.051 L* 7.300 L POC ABG pCO2 POC ABG pO2 ABG pO2 94.7 H 75.1 L ABG HCO3 18.0 L ABG O2 Saturation 93.5 L ABG Base Excess -6.8 L -7.8 L ABG Hemoglobin 13.2 L 11.9 L ABG Oxyhemoglobin ABG Potassium ABG Glucose Oxyhemoglobin 91.0 L 92.7 L Carboxyhemoglobin Sodium Potassium Chloride Carbon Dioxide BUN Creatinine Glucose POC Glucose Calcium Ferritin Total Bilirubin Alkaline Phosphatase Lactate Dehydrogenase Troponin T 0.034 H D C-Reactive Protein Total Protein Albumin Prealbumin LDL Cholesterol Direct Arterial Blood Glucose Arterial Blood Ionized Calcium Urine WBC (Auto) 02/25/20 02/25/20 02/25/20 04:00 04:00 12:26 WBC 22.9 H RBC Hgb Hct MCV 83 L MCH 27 L RDW Plt Count 468 H Lymph % (Auto) [place] # (Auto) Seg Neutrophils % Seg Neuts % (Manual) 89.0 H Lymphocytes % (Manual) 7.0 L Monocytes % (Manual) Seg Neutrophils # Seg Neutrophils # Man 20.4 H Lymphocytes # (Manual) Monocytes # (Manual) Eosinophils # (Manual) PT INR D-Dimer ABG pH POC ABG pCO2 POC ABG pO2 ABG pO2 ABG HCO3 ABG O2 Saturation ABG Base Excess ABG Hemoglobin ABG Oxyhemoglobin ABG Potassium 2.6 L ABG Glucose 142 H Oxyhemoglobin Carboxyhemoglobin Sodium Potassium 3.2 L Chloride Carbon Dioxide 18 L BUN Creatinine 0.2 L Glucose 114 H POC Glucose Calcium Ferritin Total Bilirubin Alkaline Phosphatase Lactate Dehydrogenase Troponin T C-Reactive Protein Total Protein Albumin 3.5 L Prealbumin LDL Cholesterol Direct Arterial Blood Glucose 142 H Arterial Blood Ionized Calcium Urine WBC (Auto) 02/26/20 02/26/20 02/26/20 15:58 17:00 23:43 WBC RBC Hgb Hct MCV MCH RDW Plt Count Lymph % (Auto) [place] # (Auto) Seg Neutrophils % Seg Neuts % (Manual) Lymphocytes % (Manual) Monocytes % (Manual) Seg Neutrophils # Seg Neutrophils # Man Lymphocytes # (Manual) Monocytes # (Manual) Eosinophils # (Manual) PT INR D-Dimer ABG pH 7.502 H POC ABG pCO2 POC ABG pO2 213.6 H ABG pO2 ABG HCO3 ABG O2 Saturation ABG Base Excess ABG Hemoglobin ABG Oxyhemoglobin 99.2 H ABG Potassium 2.9 L ABG Glucose 160 H Oxyhemoglobin Carboxyhemoglobin 0.4 L Sodium Potassium Chloride Carbon Dioxide BUN Creatinine Glucose POC Glucose 189 H 120 H Calcium Ferritin Total Bilirubin Alkaline Phosphatase Lactate Dehydrogenase Troponin T C-Reactive Protein Total Protein Albumin Prealbumin LDL Cholesterol Direct Arterial Blood Glucose 160 H Arterial Blood Ionized Calcium 4.5 L Urine WBC (Auto) 02/27/20 02/27/20 02/27/20 05:00 07:04 17:45 WBC RBC Hgb Hct MCV MCH RDW Plt Count Lymph % (Auto) [place] # (Auto) Seg Neutrophils % Seg Neuts % (Manual) Lymphocytes % (Manual) Monocytes % (Manual) Seg Neutrophils # Seg Neutrophils # Man Lymphocytes # (Manual) Monocytes # (Manual) Eosinophils # (Manual) PT INR D-Dimer ABG pH 7.524 H POC ABG pCO2 POC ABG pO2 ABG pO2 ABG HCO3 ABG O2 Saturation ABG Base Excess ABG Hemoglobin ABG Oxyhemoglobin ABG Potassium 3.0 L ABG Glucose 143 H Oxyhemoglobin Carboxyhemoglobin Sodium Potassium Chloride Carbon Dioxide BUN Creatinine Glucose POC Glucose 154 H 175 H Calcium Ferritin Total Bilirubin Alkaline Phosphatase Lactate Dehydrogenase Troponin T C-Reactive Protein Total Protein Albumin Prealbumin LDL Cholesterol Direct Arterial Blood Glucose 143 H Arterial Blood Ionized Calcium Urine WBC (Auto) 02/27/20 02/28/20 02/28/20 Unknown 00:21 04:15 WBC 18.7 H RBC Hgb Hct MCV MCH RDW Plt Count Lymph % (Auto) 8.7 L [place] # (Auto) 1.2 H Seg Neutrophils % 84.6 H Seg Neuts % (Manual) Lymphocytes % (Manual) Monocytes % (Manual) Seg Neutrophils # 15.9 H Seg Neutrophils # Man Lymphocytes # (Manual) Monocytes # (Manual) Eosinophils # (Manual) PT INR D-Dimer ABG pH POC ABG pCO2 POC ABG pO2 ABG pO2 ABG HCO3 ABG O2 Saturation ABG Base Excess ABG Hemoglobin ABG Oxyhemoglobin ABG Potassium ABG Glucose Oxyhemoglobin Carboxyhemoglobin Sodium Potassium 2.9 L* Chloride Carbon Dioxide 33 H D BUN Creatinine < 0.2 L Glucose 157 H POC Glucose 134 H Calcium Ferritin Total Bilirubin Alkaline Phosphatase Lactate Dehydrogenase Troponin T C-Reactive Protein Total Protein Albumin Prealbumin LDL Cholesterol Direct Arterial Blood Glucose Arterial Blood Ionized Calcium Urine WBC (Auto) 02/28/20 02/28/20 02/28/20 04:15 05:16 05:39 WBC RBC Hgb Hct MCV MCH RDW Plt Count Lymph % (Auto) [place] # (Auto) Seg Neutrophils % Seg Neuts % (Manual) Lymphocytes % (Manual) Monocytes % (Manual) Seg Neutrophils # Seg Neutrophils # Man Lymphocytes # (Manual) Monocytes # (Manual) Eosinophils # (Manual) PT INR D-Dimer ABG pH POC ABG pCO2 POC ABG pO2 ABG pO2 142.9 H ABG HCO3 34.1 H ABG O2 Saturation ABG Base Excess 8.3 H ABG Hemoglobin ABG Oxyhemoglobin ABG Potassium ABG Glucose Oxyhemoglobin Carboxyhemoglobin Sodium 151 H Potassium Chloride Carbon Dioxide 32 H BUN Creatinine 0.2 L Glucose 167 H POC Glucose 138 H Calcium Ferritin Total Bilirubin Alkaline Phosphatase Lactate Dehydrogenase Troponin T C-Reactive Protein Total Protein Albumin Prealbumin LDL Cholesterol Direct Arterial Blood Glucose Arterial Blood Ionized Calcium Urine WBC (Auto) 02/28/20 02/28/20 02/28/20 11:05 11:33 12:54 WBC RBC Hgb Hct MCV MCH RDW Plt Count Lymph % (Auto) [place] # (Auto) Seg Neutrophils % Seg Neuts % (Manual) Lymphocytes % (Manual) Monocytes % (Manual) Seg Neutrophils # Seg Neutrophils # Man Lymphocytes # (Manual) Monocytes # (Manual) Eosinophils # (Manual) PT INR D-Dimer ABG pH POC ABG pCO2 POC ABG pO2 ABG pO2 ABG HCO3 ABG O2 Saturation ABG Base Excess ABG Hemoglobin ABG Oxyhemoglobin ABG Potassium ABG Glucose Oxyhemoglobin Carboxyhemoglobin Sodium Potassium Chloride Carbon Dioxide BUN Creatinine Glucose POC Glucose 160 H Calcium Ferritin Total Bilirubin Alkaline Phosphatase Lactate Dehydrogenase Troponin T C-Reactive Protein 4.70 H Total Protein Albumin Prealbumin 0.090 L LDL Cholesterol Direct Arterial Blood Glucose Arterial Blood Ionized Calcium Urine WBC (Auto) 02/28/20 02/29/20 02/29/20 17:34 00:44 04:05 WBC 19.6 H RBC Hgb Hct MCV MCH 27 L RDW 15.4 H Plt Count Lymph % (Auto) [place] # (Auto) Seg Neutrophils % Seg Neuts % (Manual) 86.0 H Lymphocytes % (Manual) 7.0 L Monocytes % (Manual) Seg Neutrophils # Seg Neutrophils # Man 16.9 H Lymphocytes # (Manual) Monocytes # (Manual) 1.2 H Eosinophils # (Manual) PT INR D-Dimer ABG pH POC ABG pCO2 POC ABG pO2 ABG pO2 ABG HCO3 ABG O2 Saturation ABG Base Excess ABG Hemoglobin ABG Oxyhemoglobin ABG Potassium ABG Glucose Oxyhemoglobin Carboxyhemoglobin Sodium Potassium Chloride Carbon Dioxide BUN Creatinine Glucose POC Glucose 136 H 156 H Calcium Ferritin Total Bilirubin Alkaline Phosphatase Lactate Dehydrogenase Troponin T C-Reactive Protein Total Protein Albumin Prealbumin LDL Cholesterol Direct Arterial Blood Glucose Arterial Blood Ionized Calcium Urine WBC (Auto) 02/29/20 02/29/20 02/29/20 04:05 05:14 05:33 WBC RBC Hgb Hct MCV MCH RDW Plt Count Lymph % (Auto) [place] # (Auto) Seg Neutrophils % Seg Neuts % (Manual) Lymphocytes % (Manual) Monocytes % (Manual) Seg Neutrophils # Seg Neutrophils # Man Lymphocytes # (Manual) Monocytes # (Manual) Eosinophils # (Manual) PT INR D-Dimer ABG pH POC ABG pCO2 54.3 H POC ABG pO2 124.8 H ABG pO2 ABG HCO3 ABG O2 Saturation ABG Base Excess ABG Hemoglobin ABG Oxyhemoglobin ABG Potassium ABG Glucose 185 H Oxyhemoglobin Carboxyhemoglobin Sodium 148 H Potassium Chloride Carbon Dioxide 33 H BUN Creatinine < 0.2 L Glucose 173 H POC Glucose 152 H Calcium Ferritin Total Bilirubin Alkaline Phosphatase Lactate Dehydrogenase Troponin T C-Reactive Protein Total Protein Albumin Prealbumin LDL Cholesterol Direct Arterial Blood Glucose 185 H Arterial Blood Ionized Calcium Urine WBC (Auto) 03/01/20 03/01/20 03/01/20 00:00 03:45 04:33 WBC 23.1 H RBC Hgb Hct MCV MCH 27 L RDW 15.3 H Plt Count Lymph % (Auto) [place] # (Auto) Seg Neutrophils % Seg Neuts % (Manual) 92.0 H Lymphocytes % (Manual) 6.0 L Monocytes % (Manual) Seg Neutrophils # Seg Neutrophils # Man 21.3 H Lymphocytes # (Manual) Monocytes # (Manual) Eosinophils # (Manual) 0.5 H PT INR D-Dimer ABG pH 7.492 H POC ABG pCO2 POC ABG pO2 ABG pO2 157.1 H ABG HCO3 32.3 H ABG O2 Saturation ABG Base Excess 8.1 H ABG Hemoglobin 13.2 L ABG Oxyhemoglobin ABG Potassium ABG Glucose Oxyhemoglobin Carboxyhemoglobin Sodium Potassium Chloride Carbon Dioxide BUN Creatinine Glucose POC Glucose 109 H Calcium Ferritin Total Bilirubin Alkaline Phosphatase Lactate Dehydrogenase Troponin T C-Reactive Protein Total Protein Albumin Prealbumin LDL Cholesterol Direct Arterial Blood Glucose Arterial Blood Ionized Calcium Urine WBC (Auto) 03/01/20 03/01/20 03/01/20 04:33 05:29 12:32 WBC RBC Hgb Hct MCV MCH RDW Plt Count Lymph % (Auto) [place] # (Auto) Seg Neutrophils % Seg Neuts % (Manual) Lymphocytes % (Manual) Monocytes % (Manual) Seg Neutrophils # Seg Neutrophils # Man Lymphocytes # (Manual) Monocytes # (Manual) Eosinophils # (Manual) PT INR D-Dimer ABG pH POC ABG pCO2 POC ABG pO2 ABG pO2 ABG HCO3 ABG O2 Saturation ABG Base Excess ABG Hemoglobin ABG Oxyhemoglobin ABG Potassium ABG Glucose Oxyhemoglobin Carboxyhemoglobin Sodium 146 H Potassium Chloride Carbon Dioxide 32 H BUN Creatinine < 0.2 L Glucose 120 H POC Glucose 120 H 128 H Calcium Ferritin Total Bilirubin Alkaline Phosphatase Lactate Dehydrogenase Troponin T C-Reactive Protein Total Protein Albumin Prealbumin LDL Cholesterol Direct Arterial Blood Glucose Arterial Blood Ionized Calcium Urine WBC (Auto) 03/01/20 03/01/20 03/02/20 17:38 23:46 06:13 WBC RBC Hgb Hct MCV MCH RDW Plt Count Lymph % (Auto) [place] # (Auto) Seg Neutrophils % Seg Neuts % (Manual) Lymphocytes % (Manual) Monocytes % (Manual) Seg Neutrophils # Seg Neutrophils # Man Lymphocytes # (Manual) Monocytes # (Manual) Eosinophils # (Manual) PT INR D-Dimer ABG pH POC ABG pCO2 POC ABG pO2 ABG pO2 ABG HCO3 ABG O2 Saturation ABG Base Excess ABG Hemoglobin ABG Oxyhemoglobin ABG Potassium ABG Glucose Oxyhemoglobin Carboxyhemoglobin Sodium Potassium Chloride Carbon Dioxide BUN Creatinine Glucose POC Glucose 114 H 121 H 120 H Calcium Ferritin Total Bilirubin Alkaline Phosphatase Lactate Dehydrogenase Troponin T C-Reactive Protein Total Protein Albumin Prealbumin LDL Cholesterol Direct Arterial Blood Glucose Arterial Blood Ionized Calcium Urine WBC (Auto) 03/02/20 03/02/20 03/03/20 09:47 09:47 10:21 WBC 23.6 H RBC Hgb Hct MCV MCH RDW 15.3 H Plt Count 494 H Lymph % (Auto) [place] # (Auto) Seg Neutrophils % Seg Neuts % (Manual) 85.0 H Lymphocytes % (Manual) 6.0 L Monocytes % (Manual) Seg Neutrophils # Seg Neutrophils # Man 20.1 H Lymphocytes # (Manual) Monocytes # (Manual) 1.7 H Eosinophils # (Manual) PT INR D-Dimer ABG pH POC ABG pCO2 POC ABG pO2 ABG pO2 ABG HCO3 ABG O2 Saturation ABG Base Excess ABG Hemoglobin ABG Oxyhemoglobin ABG Potassium 3.3 L ABG Glucose 158 H Oxyhemoglobin Carboxyhemoglobin Sodium Potassium Chloride Carbon Dioxide BUN Creatinine < 0.2 L Glucose 177 H POC Glucose Calcium Ferritin Total Bilirubin Alkaline Phosphatase Lactate Dehydrogenase Troponin T C-Reactive Protein Total Protein Albumin Prealbumin LDL Cholesterol Direct Arterial Blood Glucose 158 H Arterial Blood Ionized Calcium Urine WBC (Auto) 03/03/20 03/04/20 03/04/20 21:30 00:00 12:23 WBC RBC Hgb Hct MCV MCH RDW Plt Count Lymph % (Auto) [place] # (Auto) Seg Neutrophils % Seg Neuts % (Manual) Lymphocytes % (Manual) Monocytes % (Manual) Seg Neutrophils # Seg Neutrophils # Man Lymphocytes # (Manual) Monocytes # (Manual) Eosinophils # (Manual) PT INR D-Dimer ABG pH 7.328 L POC ABG pCO2 POC ABG pO2 ABG pO2 68.4 L ABG HCO3 35.0 H ABG O2 Saturation 93.9 L ABG Base Excess 6.8 H ABG Hemoglobin 12.7 L ABG Oxyhemoglobin ABG Potassium ABG Glucose Oxyhemoglobin 91.9 L Carboxyhemoglobin Sodium Potassium Chloride Carbon Dioxide BUN Creatinine Glucose POC Glucose 187 H 163 H Calcium Ferritin Total Bilirubin Alkaline Phosphatase Lactate Dehydrogenase Troponin T C-Reactive Protein Total Protein Albumin Prealbumin LDL Cholesterol Direct Arterial Blood Glucose Arterial Blood Ionized Calcium Urine WBC (Auto) 03/04/20 03/04/20 03/05/20 18:15 21:30 06:02 WBC RBC Hgb Hct MCV MCH RDW Plt Count Lymph % (Auto) [place] # (Auto) Seg Neutrophils % Seg Neuts % (Manual) Lymphocytes % (Manual) Monocytes % (Manual) Seg Neutrophils # Seg Neutrophils # Man Lymphocytes # (Manual) Monocytes # (Manual) Eosinophils # (Manual) PT INR D-Dimer ABG pH 7.297 L POC ABG pCO2 POC ABG pO2 ABG pO2 ABG HCO3 41.0 H ABG O2 Saturation ABG Base Excess 11.0 H ABG Hemoglobin 13.1 L ABG Oxyhemoglobin ABG Potassium ABG Glucose Oxyhemoglobin 94.5 L Carboxyhemoglobin Sodium Potassium Chloride Carbon Dioxide BUN Creatinine Glucose POC Glucose 192 H 127 H Calcium Ferritin Total Bilirubin Alkaline Phosphatase Lactate Dehydrogenase Troponin T C-Reactive Protein Total Protein Albumin Prealbumin LDL Cholesterol Direct Arterial Blood Glucose Arterial Blood Ionized Calcium Urine WBC (Auto) 03/05/20 03/05/20 03/06/20 12:09 16:42 00:24 WBC RBC Hgb Hct MCV MCH RDW Plt Count Lymph % (Auto) [place] # (Auto) Seg Neutrophils % Seg Neuts % (Manual) Lymphocytes % (Manual) Monocytes % (Manual) Seg Neutrophils # Seg Neutrophils # Man Lymphocytes # (Manual) Monocytes # (Manual) Eosinophils # (Manual) PT INR D-Dimer ABG pH POC ABG pCO2 POC ABG pO2 ABG pO2 ABG HCO3 ABG O2 Saturation ABG Base Excess ABG Hemoglobin ABG Oxyhemoglobin ABG Potassium ABG Glucose Oxyhemoglobin Carboxyhemoglobin Sodium Potassium Chloride Carbon Dioxide BUN Creatinine Glucose POC Glucose 147 H 114 H 134 H Calcium Ferritin Total Bilirubin Alkaline Phosphatase Lactate Dehydrogenase Troponin T C-Reactive Protein Total Protein Albumin Prealbumin LDL Cholesterol Direct Arterial Blood Glucose Arterial Blood Ionized Calcium Urine WBC (Auto) 03/06/20 03/06/20 03/06/20 04:34 05:53 06:08 WBC 25.4 H RBC Hgb 10.5 L Hct 32.7 L MCV MCH 27 L RDW 15.3 H Plt Count 634 H Lymph % (Auto) [place] # (Auto) Seg Neutrophils % Seg Neuts % (Manual) 88.0 H Lymphocytes % (Manual) 2.0 L Monocytes % (Manual) 8.0 H Seg Neutrophils # Seg Neutrophils # Man 22.4 H Lymphocytes # (Manual) 0.5 L Monocytes # (Manual) 2.0 H Eosinophils # (Manual) PT INR D-Dimer ABG pH POC ABG pCO2 POC ABG pO2 ABG pO2 ABG HCO3 37.9 H ABG O2 Saturation ABG Base Excess 11.4 H ABG Hemoglobin 10.6 L ABG Oxyhemoglobin ABG Potassium ABG Glucose Oxyhemoglobin 94.7 L Carboxyhemoglobin Sodium Potassium Chloride Carbon Dioxide BUN Creatinine Glucose POC Glucose 135 H Calcium Ferritin Total Bilirubin Alkaline Phosphatase Lactate Dehydrogenase Troponin T C-Reactive Protein Total Protein Albumin Prealbumin LDL Cholesterol Direct Arterial Blood Glucose Arterial Blood Ionized Calcium Urine WBC (Auto) 03/06/20 03/06/20 03/06/20 06:08 12:19 19:10 WBC RBC Hgb Hct MCV MCH RDW Plt Count Lymph % (Auto) [place] # (Auto) Seg Neutrophils % Seg Neuts % (Manual) Lymphocytes % (Manual) Monocytes % (Manual) Seg Neutrophils # Seg Neutrophils # Man Lymphocytes # (Manual) Monocytes # (Manual) Eosinophils # (Manual) PT INR D-Dimer ABG pH POC ABG pCO2 POC ABG pO2 ABG pO2 ABG HCO3 ABG O2 Saturation ABG Base Excess ABG Hemoglobin ABG Oxyhemoglobin ABG Potassium ABG Glucose Oxyhemoglobin Carboxyhemoglobin Sodium 150 H D Potassium Chloride Carbon Dioxide 39 H D BUN 23 H Creatinine < 0.2 L Glucose 144 H POC Glucose 169 H 152 H Calcium Ferritin Total Bilirubin Alkaline Phosphatase Lactate Dehydrogenase Troponin T C-Reactive Protein Total Protein Albumin 3.3 L Prealbumin LDL Cholesterol Direct Arterial Blood Glucose Arterial Blood Ionized Calcium Urine WBC (Auto) 03/06/20 03/07/20 03/07/20 23:58 04:25 04:25 WBC 22.1 H RBC Hgb 10.9 L Hct 32.9 L MCV MCH RDW 15.5 H Plt Count 739 H Lymph % (Auto) 7.8 L [place] # (Auto) 1.3 H Seg Neutrophils % 85.5 H Seg Neuts % (Manual) Lymphocytes % (Manual) Monocytes % (Manual) Seg Neutrophils # 18.9 H Seg Neutrophils # Man Lymphocytes # (Manual) Monocytes # (Manual) Eosinophils # (Manual) PT INR D-Dimer ABG pH POC ABG pCO2 POC ABG pO2 ABG pO2 ABG HCO3 ABG O2 Saturation ABG Base Excess ABG Hemoglobin ABG Oxyhemoglobin ABG Potassium ABG Glucose Oxyhemoglobin Carboxyhemoglobin Sodium 146 H Potassium Chloride Carbon Dioxide 37 H BUN Creatinine < 0.2 L Glucose 118 H POC Glucose 111 H Calcium Ferritin Total Bilirubin Alkaline Phosphatase Lactate Dehydrogenase Troponin T C-Reactive Protein Total Protein Albumin 3.7 L Prealbumin LDL Cholesterol Direct Arterial Blood Glucose Arterial Blood Ionized Calcium Urine WBC (Auto) 03/07/20 03/07/20 03/07/20 05:20 17:45 23:32 WBC RBC Hgb Hct MCV MCH RDW Plt Count Lymph % (Auto) [place] # (Auto) Seg Neutrophils % Seg Neuts % (Manual) Lymphocytes % (Manual) Monocytes % (Manual) Seg Neutrophils # Seg Neutrophils # Man Lymphocytes # (Manual) Monocytes # (Manual) Eosinophils # (Manual) PT INR D-Dimer ABG pH POC ABG pCO2 POC ABG pO2 ABG pO2 ABG HCO3 ABG O2 Saturation ABG Base Excess ABG Hemoglobin ABG Oxyhemoglobin ABG Potassium ABG Glucose Oxyhemoglobin Carboxyhemoglobin Sodium Potassium Chloride Carbon Dioxide BUN Creatinine Glucose POC Glucose 113 H 124 H 210 H Calcium Ferritin Total Bilirubin Alkaline Phosphatase Lactate Dehydrogenase Troponin T C-Reactive Protein Total Protein Albumin Prealbumin LDL Cholesterol Direct Arterial Blood Glucose Arterial Blood Ionized Calcium Urine WBC (Auto) 03/08/20 03/08/20 03/08/20 05:35 06:43 06:43 WBC 28.9 H RBC 3.53 L Hgb 9.7 L Hct 30.3 L MCV MCH RDW 15.6 H Plt Count 578 H Lymph % (Auto) [place] # (Auto) Seg Neutrophils % Seg Neuts % (Manual) 93.0 H Lymphocytes % (Manual) 4.0 L Monocytes % (Manual) Seg Neutrophils # Seg Neutrophils # Man 26.9 H Lymphocytes # (Manual) Monocytes # (Manual) Eosinophils # (Manual) PT INR D-Dimer ABG pH POC ABG pCO2 POC ABG pO2 ABG pO2 ABG HCO3 ABG O2 Saturation ABG Base Excess ABG Hemoglobin ABG Oxyhemoglobin ABG Potassium ABG Glucose Oxyhemoglobin Carboxyhemoglobin Sodium 146 H Potassium Chloride Carbon Dioxide 35 H BUN 34 H Creatinine 0.3 L D Glucose 125 H POC Glucose 147 H Calcium Ferritin Total Bilirubin Alkaline Phosphatase Lactate Dehydrogenase Troponin T C-Reactive Protein Total Protein 5.9 L Albumin 3.2 L Prealbumin LDL Cholesterol Direct Arterial Blood Glucose Arterial Blood Ionized Calcium Urine WBC (Auto) 03/08/20 03/08/20 03/08/20 08:57 11:14 12:34 WBC RBC Hgb Hct MCV MCH RDW Plt Count Lymph % (Auto) [place] # (Auto) Seg Neutrophils % Seg Neuts % (Manual) Lymphocytes % (Manual) Monocytes % (Manual) Seg Neutrophils # Seg Neutrophils # Man Lymphocytes # (Manual) Monocytes # (Manual) Eosinophils # (Manual) PT INR D-Dimer ABG pH POC ABG pCO2 63.1 H POC ABG pO2 ABG pO2 ABG HCO3 ABG O2 Saturation ABG Base Excess ABG Hemoglobin 10.9 L ABG Oxyhemoglobin ABG Potassium ABG Glucose 176 H Oxyhemoglobin Carboxyhemoglobin Sodium Potassium Chloride Carbon Dioxide BUN Creatinine Glucose POC Glucose 171 H Calcium Ferritin Total Bilirubin Alkaline Phosphatase Lactate Dehydrogenase Troponin T C-Reactive Protein Total Protein Albumin Prealbumin LDL Cholesterol Direct Arterial Blood Glucose 176 H Arterial Blood Ionized Calcium 4.5 L Urine WBC (Auto) 10.0 H 03/08/20 03/08/20 03/09/20 18:02 23:43 05:49 WBC RBC Hgb Hct MCV MCH RDW Plt Count Lymph % (Auto) [place] # (Auto) Seg Neutrophils % Seg Neuts % (Manual) Lymphocytes % (Manual) Monocytes % (Manual) Seg Neutrophils # Seg Neutrophils # Man Lymphocytes # (Manual) Monocytes # (Manual) Eosinophils # (Manual) PT INR D-Dimer ABG pH POC ABG pCO2 POC ABG pO2 ABG pO2 ABG HCO3 ABG O2 Saturation ABG Base Excess ABG Hemoglobin ABG Oxyhemoglobin ABG Potassium ABG Glucose Oxyhemoglobin Carboxyhemoglobin Sodium Potassium Chloride Carbon Dioxide BUN Creatinine Glucose POC Glucose 157 H 134 H 163 H Calcium Ferritin Total Bilirubin Alkaline Phosphatase Lactate Dehydrogenase Troponin T C-Reactive Protein Total Protein Albumin Prealbumin LDL Cholesterol Direct Arterial Blood Glucose Arterial Blood Ionized Calcium Urine WBC (Auto) 03/09/20 03/09/20 03/09/20 08:35 08:35 12:11 WBC 23.4 H RBC 3.36 L Hgb 9.3 L Hct 28.8 L MCV MCH RDW 15.9 H Plt Count 521 H Lymph % (Auto) [place] # (Auto) Seg Neutrophils % Seg Neuts % (Manual) 87.0 H Lymphocytes % (Manual) 4.0 L Monocytes % (Manual) 9.0 H Seg Neutrophils # Seg Neutrophils # Man 20.4 H Lymphocytes # (Manual) 0.9 L Monocytes # (Manual) 2.1 H Eosinophils # (Manual) PT INR D-Dimer ABG pH POC ABG pCO2 POC ABG pO2 ABG pO2 ABG HCO3 ABG O2 Saturation ABG Base Excess ABG Hemoglobin ABG Oxyhemoglobin ABG Potassium ABG Glucose Oxyhemoglobin Carboxyhemoglobin Sodium 147 H Potassium Chloride Carbon Dioxide 37 H BUN 63 H Creatinine Glucose 154 H POC Glucose 128 H Calcium Ferritin Total Bilirubin Alkaline Phosphatase Lactate Dehydrogenase Troponin T C-Reactive Protein Total Protein Albumin Prealbumin LDL Cholesterol Direct Arterial Blood Glucose Arterial Blood Ionized Calcium Urine WBC (Auto) 03/09/20 03/10/20 03/10/20 17:51 00:25 05:41 WBC RBC Hgb Hct MCV MCH RDW Plt Count Lymph % (Auto) [place] # (Auto) Seg Neutrophils % Seg Neuts % (Manual) Lymphocytes % (Manual) Monocytes % (Manual) Seg Neutrophils # Seg Neutrophils # Man Lymphocytes # (Manual) Monocytes # (Manual) Eosinophils # (Manual) PT INR D-Dimer ABG pH POC ABG pCO2 POC ABG pO2 ABG pO2 ABG HCO3 ABG O2 Saturation ABG Base Excess ABG Hemoglobin ABG Oxyhemoglobin ABG Potassium ABG Glucose Oxyhemoglobin Carboxyhemoglobin Sodium Potassium Chloride Carbon Dioxide BUN Creatinine Glucose POC Glucose 127 H 128 H 153 H Calcium Ferritin Total Bilirubin Alkaline Phosphatase Lactate Dehydrogenase Troponin T C-Reactive Protein Total Protein Albumin Prealbumin LDL Cholesterol Direct Arterial Blood Glucose Arterial Blood Ionized Calcium Urine WBC (Auto) 03/10/20 03/10/20 03/10/20 06:14 06:14 12:02 WBC 18.3 H RBC 3.45 L Hgb 9.5 L Hct 29.5 L MCV MCH RDW 16.1 H Plt Count 494 H Lymph % (Auto) [place] # (Auto) Seg Neutrophils % Seg Neuts % (Manual) 95.0 H Lymphocytes % (Manual) 1.0 L Monocytes % (Manual) Seg Neutrophils # Seg Neutrophils # Man 17.4 H Lymphocytes # (Manual) 0.2 L Monocytes # (Manual) Eosinophils # (Manual) PT INR D-Dimer ABG pH POC ABG pCO2 POC ABG pO2 ABG pO2 ABG HCO3 ABG O2 Saturation ABG Base Excess ABG Hemoglobin ABG Oxyhemoglobin ABG Potassium ABG Glucose Oxyhemoglobin Carboxyhemoglobin Sodium 149 H Potassium Chloride Carbon Dioxide 35 H BUN 34 H Creatinine 0.2 L D Glucose 177 H POC Glucose 151 H Calcium Ferritin Total Bilirubin Alkaline Phosphatase Lactate Dehydrogenase Troponin T C-Reactive Protein Total Protein Albumin Prealbumin LDL Cholesterol Direct Arterial Blood Glucose Arterial Blood Ionized Calcium Urine WBC (Auto) 03/10/20 03/10/20 03/11/20 17:41 23:53 05:02 WBC RBC Hgb Hct MCV MCH RDW Plt Count Lymph % (Auto) [place] # (Auto) Seg Neutrophils % Seg Neuts % (Manual) Lymphocytes % (Manual) Monocytes % (Manual) Seg Neutrophils # Seg Neutrophils # Man Lymphocytes # (Manual) Monocytes # (Manual) Eosinophils # (Manual) PT INR D-Dimer ABG pH POC ABG pCO2 POC ABG pO2 ABG pO2 ABG HCO3 ABG O2 Saturation ABG Base Excess ABG Hemoglobin ABG Oxyhemoglobin ABG Potassium ABG Glucose Oxyhemoglobin Carboxyhemoglobin Sodium Potassium Chloride Carbon Dioxide BUN Creatinine Glucose POC Glucose 168 H 142 H 146 H Calcium Ferritin Total Bilirubin Alkaline Phosphatase Lactate Dehydrogenase Troponin T C-Reactive Protein Total Protein Albumin Prealbumin LDL Cholesterol Direct Arterial Blood Glucose Arterial Blood Ionized Calcium Urine WBC (Auto) 03/11/20 03/11/20 03/11/20 11:30 14:01 14:01 WBC 19.7 H RBC 3.04 L Hgb 8.7 L Hct 25.8 L MCV MCH RDW 15.6 H Plt Count Lymph % (Auto) [place] # (Auto) Seg Neutrophils % Seg Neuts % (Manual) Lymphocytes % (Manual) Monocytes % (Manual) Seg Neutrophils # Seg Neutrophils # Man Lymphocytes # (Manual) Monocytes # (Manual) Eosinophils # (Manual) PT INR D-Dimer ABG pH POC ABG pCO2 POC ABG pO2 ABG pO2 ABG HCO3 ABG O2 Saturation ABG Base Excess ABG Hemoglobin ABG Oxyhemoglobin ABG Potassium ABG Glucose Oxyhemoglobin Carboxyhemoglobin Sodium 151 H Potassium Chloride Carbon Dioxide 37 H BUN Creatinine < 0.2 L Glucose 171 H POC Glucose 248 H Calcium Ferritin Total Bilirubin Alkaline Phosphatase Lactate Dehydrogenase Troponin T C-Reactive Protein Total Protein Albumin Prealbumin LDL Cholesterol Direct Arterial Blood Glucose Arterial Blood Ionized Calcium Urine WBC (Auto) 03/11/20 03/11/20 03/12/20 17:09 23:52 04:39 WBC 19.9 H RBC 3.16 L Hgb 8.9 L Hct 27.5 L MCV MCH RDW 15.7 H Plt Count Lymph % (Auto) 6.8 L [place] # (Auto) 1.2 H Seg Neutrophils % 86.0 H Seg Neuts % (Manual) Lymphocytes % (Manual) Monocytes % (Manual) Seg Neutrophils # 17.1 H Seg Neutrophils # Man Lymphocytes # (Manual) Monocytes # (Manual) Eosinophils # (Manual) PT INR D-Dimer ABG pH POC ABG pCO2 POC ABG pO2 ABG pO2 ABG HCO3 ABG O2 Saturation ABG Base Excess ABG Hemoglobin ABG Oxyhemoglobin ABG Potassium ABG Glucose Oxyhemoglobin Carboxyhemoglobin Sodium Potassium Chloride Carbon Dioxide BUN Creatinine Glucose POC Glucose 124 H 131 H Calcium Ferritin Total Bilirubin Alkaline Phosphatase Lactate Dehydrogenase Troponin T C-Reactive Protein Total Protein Albumin Prealbumin LDL Cholesterol Direct Arterial Blood Glucose Arterial Blood Ionized Calcium Urine WBC (Auto) 03/12/20 03/12/20 03/12/20 04:39 05:28 11:34 WBC RBC Hgb Hct MCV MCH RDW Plt Count Lymph % (Auto) [place] # (Auto) Seg Neutrophils % Seg Neuts % (Manual) Lymphocytes % (Manual) Monocytes % (Manual) Seg Neutrophils # Seg Neutrophils # Man Lymphocytes # (Manual) Monocytes # (Manual) Eosinophils # (Manual) PT INR D-Dimer ABG pH POC ABG pCO2 POC ABG pO2 ABG pO2 ABG HCO3 ABG O2 Saturation ABG Base Excess ABG Hemoglobin ABG Oxyhemoglobin ABG Potassium ABG Glucose Oxyhemoglobin Carboxyhemoglobin Sodium 147 H Potassium Chloride Carbon Dioxide 40 H BUN Creatinine < 0.2 L Glucose 175 H POC Glucose 167 H 144 H Calcium Ferritin Total Bilirubin Alkaline Phosphatase Lactate Dehydrogenase Troponin T C-Reactive Protein Total Protein Albumin Prealbumin LDL Cholesterol Direct Arterial Blood Glucose Arterial Blood Ionized Calcium Urine WBC (Auto) 03/12/20 03/12/20 03/13/20 17:32 23:57 05:57 WBC RBC Hgb Hct MCV MCH RDW Plt Count Lymph % (Auto) [place] # (Auto) Seg Neutrophils % Seg Neuts % (Manual) Lymphocytes % (Manual) Monocytes % (Manual) Seg Neutrophils # Seg Neutrophils # Man Lymphocytes # (Manual) Monocytes # (Manual) Eosinophils # (Manual) PT INR D-Dimer ABG pH POC ABG pCO2 POC ABG pO2 ABG pO2 ABG HCO3 ABG O2 Saturation ABG Base Excess ABG Hemoglobin ABG Oxyhemoglobin ABG Potassium ABG Glucose Oxyhemoglobin Carboxyhemoglobin Sodium Potassium Chloride Carbon Dioxide BUN Creatinine Glucose POC Glucose 141 H 137 H 161 H Calcium Ferritin Total Bilirubin Alkaline Phosphatase Lactate Dehydrogenase Troponin T C-Reactive Protein Total Protein Albumin Prealbumin LDL Cholesterol Direct Arterial Blood Glucose Arterial Blood Ionized Calcium Urine WBC (Auto) 03/13/20 03/13/20 03/13/20 12:28 14:14 18:39 WBC RBC Hgb Hct MCV MCH RDW Plt Count Lymph % (Auto) [place] # (Auto) Seg Neutrophils % Seg Neuts % (Manual) Lymphocytes % (Manual) Monocytes % (Manual) Seg Neutrophils # Seg Neutrophils # Man Lymphocytes # (Manual) Monocytes # (Manual) Eosinophils # (Manual) PT INR D-Dimer ABG pH POC ABG pCO2 POC ABG pO2 ABG pO2 ABG HCO3 ABG O2 Saturation ABG Base Excess ABG Hemoglobin ABG Oxyhemoglobin ABG Potassium ABG Glucose Oxyhemoglobin Carboxyhemoglobin Sodium Potassium Chloride Carbon Dioxide 39 H BUN Creatinine < 0.2 L Glucose 129 H POC Glucose 130 H 125 H Calcium Ferritin Total Bilirubin Alkaline Phosphatase Lactate Dehydrogenase Troponin T C-Reactive Protein Total Protein Albumin Prealbumin LDL Cholesterol Direct Arterial Blood Glucose Arterial Blood Ionized Calcium Urine WBC (Auto) 03/13/20 03/14/20 03/14/20 23:33 05:24 08:07 WBC 16.8 H RBC 2.81 L Hgb 7.9 L Hct 23.9 L MCV MCH RDW 15.9 H Plt Count Lymph % (Auto) [place] # (Auto) Seg Neutrophils % Seg Neuts % (Manual) 84.0 H Lymphocytes % (Manual) 10.0 L Monocytes % (Manual) Seg Neutrophils # Seg Neutrophils # Man 14.1 H Lymphocytes # (Manual) Monocytes # (Manual) Eosinophils # (Manual) PT INR D-Dimer ABG pH POC ABG pCO2 POC ABG pO2 ABG pO2 ABG HCO3 ABG O2 Saturation ABG Base Excess ABG Hemoglobin ABG Oxyhemoglobin ABG Potassium ABG Glucose Oxyhemoglobin Carboxyhemoglobin Sodium Potassium Chloride Carbon Dioxide BUN Creatinine Glucose POC Glucose 146 H 125 H Calcium Ferritin Total Bilirubin Alkaline Phosphatase Lactate Dehydrogenase Troponin T C-Reactive Protein Total Protein Albumin Prealbumin LDL Cholesterol Direct Arterial Blood Glucose Arterial Blood Ionized Calcium Urine WBC (Auto) 03/14/20 03/14/20 08:07 12:21 WBC RBC Hgb Hct MCV MCH RDW Plt Count Lymph % (Auto) [place] # (Auto) Seg Neutrophils % Seg Neuts % (Manual) Lymphocytes % (Manual) Monocytes % (Manual) Seg Neutrophils # Seg Neutrophils # Man Lymphocytes # (Manual) Monocytes # (Manual) Eosinophils # (Manual) PT INR D-Dimer ABG pH POC ABG pCO2 POC ABG pO2 ABG pO2 ABG HCO3 ABG O2 Saturation ABG Base Excess ABG Hemoglobin ABG Oxyhemoglobin ABG Potassium ABG Glucose Oxyhemoglobin Carboxyhemoglobin Sodium Potassium Chloride 97.0 L Carbon Dioxide 37 H BUN Creatinine < 0.2 L Glucose 129 H POC Glucose 109 H Calcium 8.3 L Ferritin Total Bilirubin Alkaline Phosphatase Lactate Dehydrogenase Troponin T C-Reactive Protein Total Protein Albumin Prealbumin LDL Cholesterol Direct Arterial Blood Glucose Arterial Blood Ionized Calcium Urine WBC (Auto) Chest x-ray: pending Allied health notes reviewed: nursing
--- NOTE | 2020-03-14 18:06 | Progress Note ---
Assessment and Plan --Acute hypoxic hypercapnic respiratory failure; Intubated on mechanical ventilation. Etiology secondary to sepsis, ALS, multifocal pneumonia (Covid negative). S/p trach placement 03/07/20 --Dysphagia, need PEG placement, now on NG Tf --ALS; Chronic Continue to provide supportive care --Elevated D-dimers; CTA chest, lower extremity venous Doppler both are negative Lovenox for DVT prophylaxis --Bilateral pneumonia; probably community-acquired Continue cefepime and vancomycin ID recommendations appreciated --Sepsis secondary to pneumonia Continue cefepime and vancomycin --Elevated troponin; Serial cardiac enzymes, serial EKGs Echocardiogram, cardiology consult if needed --Hypernatremia Trend sodium Free water via feeding tube --Abdominal distention due to bladder outlet obstruction, resolved CT abdomen showed bladder outlet obstruction, urology consulted s/p drake placement by urology on 03/09 --Hypotension possibly from septic shock and bladder outlet obstruction improved following placing drake --Hypernatremia due to hypovolumia free water with TF and place on 1/2NS --DVT prophylaxis; Lovenox The high probability of a clinically significant, sudden or life threatening deterioration of the [cardiac, renal and respiratory] system(s) required my full and direct attention, intervention and personal management. The aggregate critical care time was [34] minutes. This time is in addition to time spent performing reported procedures but includes the following: [x] Data Review and interpretation [x] Patient assessment and monitoring of vital signs [x] Documentation [x] Medication orders and management Brief history: 59-year-old male patient with significant past medical history of ALS, presented to ED with worsening shortness of breath since the morning [employer]. Patient was on a trilogy machine for breathing 18/11. EMS arrived, patient had O2 sats in the 80s. EMS attempted to place patient on their CPAP machine, however patient did not tolerate. Patient was admitted to the ICU with diagnosis of acute hypoxic respiratory failure and placed on BiPAP. Patient initially tolerated but later deteriorated with respiratory status. CTA chest showed no PE but significant for bilateral pneumonia. Doppler ultrasound also negative for DVT. COVID-19 test ordered. Due to persistent hypoxia, patient was intubated on 02/26/2020 at 1500. Patient now on mechanical ventilation in the ICU s/p trach placement today. Daily course: 02/26/2020. Blood cultures are negative x48 hours and Covid testing negative as well. Continue antibiotics per ID recommendations for community-acquired bilateral pneumonia. Cardiology consultation for elevated troponin. Check echocardiogram. 02/27/2020. Events of yesterday noted with asystole following V. fib arrest. Patient currently on AC mode rate 20, tidal volume 400, FiO2 50% and a PEEP of 6. Follow-up echocardiogram for elevated troponin. Cardiology suspects NSTEMI Type 2 in the setting of acute resp failure. Chest CTA and BLE Dopplers neg. we will discontinue Decadron given the Covid PCR is negative. 02/28/2020. Spoke with the sister Felisa Eli who is the power of civil attorney regarding advanced directives and she instructed me that she would like to continue with aggressive care at this time. I informed her of the guarded prognosis and high mortality/morbidity and she voiced understanding. Patient currently with AC mode ventilation rate 18, tidal volume 400, FiO2 40% and a PEEP of 6. Continue antibiotics for pneumonia. ID previously consulted. Also consult neurology with regards to ALS. 02/29/2020; patient is intubated and on CPAP patient is alert and oriented. Patient has ALS. Dr. Álvarez spoke with his sister and she wants aggressive care. Continue antibiotics for pneumonia. Neurology consulted for ALS. Prognosis poor 03/01/2020; patient is intubated and on CPAP, patient is alert and oriented. I spoke with his 2 sisters about the management plan. 03/02/2020; patient is intubated and on CPAP. Patient was alert and oriented. I spoke with Dr. mohr and he thinks patient may need mechanical ventilation, likely his disease progressed. Dr. Flowers did debridement this morning. 03/03/2020; patient is intubated and on CPAP, patient was on trilogy and BiPAP at home. Patient has ALS. on spontaneous breathing trial. Patient is alert and oriented but quadriplegic. Patient has severe bilateral pneumonia and is on cefepime and Vanco, ID is following. Patient has sacral decubitus ulcer and debridement was done by Dr. Flowers and there is no osteomyelitis. 03/05. Patient still on broad-spectrum antibiotics. Status post sacral decubitus ulcer debridements-no osteomyelitis. Patient is on AC 25/400/30% PEEP 5. No blood gas results today. 03/06. Plan for tracheostomy by surgery. Still remains intubated. Labs reviewed-sodium 150. Started on free water 200 every 8hr. trend sodium. 03/07: s/p trach placement today, patient placed back on mechanical ventilation with trach. Plan to resume tube feeding with NG tube. Continue to monitor vitals, monitor BMP. 03/08: Patient noted to have distended abdomen with low urinary output. Obtain bladder scan rule out urine retention, UA and urine culture, continue to follow clinically. 03/09: Patient noted to have low blood pressure with SBP as low as 70s. Ordered for 500 mils normal saline bolus. CT abdomen showed bladder outlet obstruction, urology consulted. 03/10: placed on drake by urology o/n, improved urine outpt. cont to monitor BMP. resuded TF - cont free water with TF. wean off from vent as tolerated. 03/11: Vitals stable. cont TF, wean off from vent as tolerated. start on 1/2 NS for hypernatremia - follow BMP 03/12: wean off vent as tolerated, plan for speech eval, cont Tf for now, cont iv fluid 03/13: unable to wean off from vent, unable to do speech therapy eval. will need PEG tube, cont supportive care for now, cont NG tube feeding 03/14: consulted GI for PEg placemnet, cont supportive care. remains on vent at night Subjective Date of service: 03/14/20 Principal diagnosis: Ac on Ch Hypercapnic & hypoxemic Resp Failure; Severe Sepsis; Jamar PNA; ALS Interval history: Patient seen and examined Remains on mechanical ventilation with trach tube Discussed with RN at the bedside Vitals reviewed -BP stable Objective - Exam Narrative Exam: GENERAL: Awake. Intubated with trach tube HEAD: No signs of head trauma. EYES: Pupils are equal. Extraocular motions intact. EARS: Hearing grossly intact. MOUTH: Oropharynx is normal. NECK: No adenopathy, no JVD. CHEST: Coarse breath sounds bilaterally CARDIAC: Regular rate and rhythm. S1 and S2, without murmurs, gallops, or rubs. VASCULAR: No Edema. Peripheral pulses normal and equal in all extremities. ABDOMEN: Soft, non tender and nondistended. Bowel Sounds normal. NEUROLOGIC EXAM: Awake, paraplegic SKIN: No obvious lesions - Constitutional Vitals: Vital Signs - 12hr 03/14/20 03/14/20 03/14/20 06:16 06:30 06:46 Temperature Pulse Rate 98 H 96 H 102 H Pulse Rate [ From Monitor] Respiratory 18 17 17 Rate Blood Pressure 102/74 97/66 102/74 O2 Sat by Pulse 100 100 100 Oximetry 03/14/20 03/14/20 03/14/20 07:00 07:16 07:30 Temperature Pulse Rate 104 H 107 H 106 H Pulse Rate [ From Monitor] Respiratory 18 19 17 Rate Blood Pressure 102/67 102/67 98/69 O2 Sat by Pulse 100 100 100 Oximetry 03/14/20 03/14/20 03/14/20 07:46 07:52 07:59 Temperature Pulse Rate 100 H 102 H 106 H Pulse Rate [ From Monitor] Respiratory 19 17 Rate Blood Pressure 98/69 98/69 O2 Sat by Pulse 100 100 Oximetry 03/14/20 03/14/20 03/14/20 08:00 08:16 08:30 Temperature 99.2 F Pulse Rate 102 H 103 H 103 H Pulse Rate [ 106 H From Monitor] Respiratory 18 18 19 Rate Blood Pressure 97/76 97/76 103/69 O2 Sat by Pulse 100 99 100 Oximetry 03/14/20 03/14/20 03/14/20 08:46 09:00 09:04 Temperature Pulse Rate 107 H 104 H Pulse Rate [ From Monitor] Respiratory 19 20 22 Rate Blood Pressure 103/69 101/70 O2 Sat by Pulse 100 100 Oximetry 03/14/20 03/14/20 03/14/20 09:16 09:30 09:34 Temperature Pulse Rate 106 H 99 H Pulse Rate [ From Monitor] Respiratory 18 21 13 Rate Blood Pressure 100/71 104/72 O2 Sat by Pulse 100 100 Oximetry 03/14/20 03/14/20 03/14/20 09:46 10:00 10:16 Temperature Pulse Rate 102 H 104 H 107 H Pulse Rate [ From Monitor] Respiratory 20 22 23 Rate Blood Pressure 104/72 101/77 101/77 O2 Sat by Pulse 100 100 100 Oximetry 03/14/20 03/14/20 03/14/20 10:30 10:46 10:56 Temperature Pulse Rate 105 H 109 H 106 H Pulse Rate [ From Monitor] Respiratory 20 19 Rate Blood Pressure 103/73 103/73 103/73 O2 Sat by Pulse 100 100 Oximetry 03/14/20 03/14/20 03/14/20 11:00 11:16 11:30 Temperature Pulse Rate 103 H 109 H 107 H Pulse Rate [ From Monitor] Respiratory 13 12 12 Rate Blood Pressure 135/81 135/81 107/73 O2 Sat by Pulse 93 99 99 Oximetry 03/14/20 03/14/20 03/14/20 11:42 11:46 12:00 Temperature 98.9 F Pulse Rate 103 H 108 H 100 H Pulse Rate [ 106 H From Monitor] Respiratory 13 16 15 Rate Blood Pressure 135/81 107/73 105/75 O2 Sat by Pulse 93 99 99 Oximetry 03/14/20 03/14/20 03/14/20 12:16 12:30 12:46 Temperature Pulse Rate 105 H 108 H 105 H Pulse Rate [ From Monitor] Respiratory 20 17 22 Rate Blood Pressure 105/75 112/77 112/77 O2 Sat by Pulse 99 100 98 Oximetry 03/14/20 03/14/20 03/14/20 13:00 13:16 13:30 Temperature Pulse Rate 110 H 106 H 105 H Pulse Rate [ From Monitor] Respiratory 19 19 26 H Rate Blood Pressure 115/83 115/83 124/91 O2 Sat by Pulse 98 99 99 Oximetry 03/14/20 03/14/20 03/14/20 13:46 14:00 14:16 Temperature Pulse Rate 108 H 106 H 109 H Pulse Rate [ From Monitor] Respiratory 22 17 23 Rate Blood Pressure 124/91 114/79 114/79 O2 Sat by Pulse 99 99 99 Oximetry 03/14/20 03/14/20 03/14/20 14:30 14:43 14:46 Temperature Pulse Rate 113 H 112 H Pulse Rate [ From Monitor] Respiratory 21 29 H 29 H Rate Blood Pressure 116/78 116/78 O2 Sat by Pulse 99 95 Oximetry 03/14/20 03/14/20 03/14/20 15:00 15:13 15:16 Temperature Pulse Rate 103 H 110 H Pulse Rate [ From Monitor] Respiratory 25 H 22 25 H Rate Blood Pressure 113/76 113/76 O2 Sat by Pulse 96 98 Oximetry 03/14/20 03/14/20 03/14/20 15:30 15:46 15:50 Temperature Pulse Rate 100 H 101 H Pulse Rate [ From Monitor] Respiratory 23 30 H Rate Blood Pressure 144/93 144/93 O2 Sat by Pulse 98 98 96 Oximetry 03/14/20 03/14/20 03/14/20 16:00 16:03 16:16 Temperature 99.4 F Pulse Rate 124 H 103 H 129 H Pulse Rate [ 128 H From Monitor] Respiratory 20 22 18 Rate Blood Pressure 152/91 113/76 152/91 O2 Sat by Pulse 99 96 96 Oximetry 03/14/20 03/14/20 03/14/20 16:30 16:46 17:00 Temperature Pulse Rate 128 H 133 H 128 H Pulse Rate [ From Monitor] Respiratory 24 24 29 H Rate Blood Pressure 124/82 124/82 116/79 O2 Sat by Pulse 95 95 94 Oximetry 03/14/20 03/14/20 17:16 17:30 Temperature Pulse Rate 128 H 121 H Pulse Rate [ From Monitor] Respiratory 21 15 Rate Blood Pressure 116/79 118/80 O2 Sat by Pulse 96 96 Oximetry - Labs CBC & Chem 7: 03/15/20 08:06 03/15/20 08:06 Labs: Abnormal lab results 03/13/20 03/13/20 03/14/20 Range/Units 18:39 23:33 05:24 WBC (4.5-11.0) K/mm3 RBC (3.65-5.03) M/mm3 Hgb (11.8-15.2) gm/dl Hct (35.5-45.6) % RDW (13.2-15.2) % Seg Neuts % (Manual) (40.0-70.0) % Lymphocytes % (Manual) (13.4-35.0) % Seg Neutrophils # Man (1.8-7.7) K/mm3 Chloride (98-107) mmol/L Carbon Dioxide (22-30) mmol/L Creatinine (0.8-1.3) mg/dL Glucose (75-100) mg/dL POC Glucose 125 H 146 H 125 H (70-105) mg/dL Calcium (8.4-10.2) mg/dL 03/14/20 03/14/20 03/14/20 Range/Units 08:07 08:07 12:21 WBC 16.8 H (4.5-11.0) K/mm3 RBC 2.81 L (3.65-5.03) M/mm3 Hgb 7.9 L (11.8-15.2) gm/dl Hct 23.9 L (35.5-45.6) % RDW 15.9 H (13.2-15.2) % Seg Neuts % (Manual) 84.0 H (40.0-70.0) % Lymphocytes % (Manual) 10.0 L (13.4-35.0) % Seg Neutrophils # Man 14.1 H (1.8-7.7) K/mm3 Chloride 97.0 L (98-107) mmol/L Carbon Dioxide 37 H (22-30) mmol/L Creatinine < 0.2 L (0.8-1.3) mg/dL Glucose 129 H (75-100) mg/dL POC Glucose 109 H (70-105) mg/dL Calcium 8.3 L (8.4-10.2) mg/dL HEART Score - HEART Score Troponin: Troponin T 0.034 ng/mL (0.00-0.029) H D 02/24/20 19:35
[2020-03-14] MEDS: ENOXAPARIN 40 MG/0.4 ML INJ SUB-Q SCH (21:57)
[2020-03-14] MEDS: POLYETHYLENE GLYCOL 3350 17 GM POWDER PO SCH (21:58)
[2020-03-15] MEDS: MORPHINE 2 MG/1 ML INJ IV PRN ×5 (04:00→17:50)
[2020-03-15] MEDS: GLYCOPYRROLATE 2 MG TAB PO SCH ×3 (08:26→20:30)
[2020-03-15 08:42] LABS: Hemoglobin 9.1 gm/dl (11.8-15.2); Mean Corpuscular HGB Conc 32 % (32-34); Mean Corpuscular Volume 85 fl (84-94); Platelet Count 433 K/mm3 (140-440); Red Blood Count 3.29 M/mm3 (3.65-5.03); Red Cell Distribution Width 15.9 % (13.2-15.2)
[2020-03-15 09:02] LABS: Blood Urea Nitrogen 14 mg/dL (9-20); Calcium 8.7 mg/dL (8.4-10.2); Hemolysis Index 11
[2020-03-15 09:05] LABS: BUN/Creatinine Ratio 70
[2020-03-15] MEDS: SCOPOLAMINE TRANSDERMAL PATCH 72 HR TD SCH (09:24)
[2020-03-15] MEDS: DOCUSATE SODIUM 100 MG/10 ML ORAL LIQD PO SCH ×2 (09:24→21:31)
[2020-03-15] MEDS: LANSOPRAZOLE 30 MG SOLUTAB FEEDTUBE SCH (09:25)
[2020-03-15] MEDS: METOPROLOL TARTRATE 25 MG TAB PO SCH ×2 (09:25→21:31)
[2020-03-15] MEDS: TAMSULOSIN 0.4 MG CAP PO SCH (09:25)
--- NOTE | 2020-03-15 11:23 | Progress Note ---
Assessment and Plan Cultures: Blood culture no growth today SARS CoV2 PCR negative Sputum culture 03/03/2020 Stenotrophomonas Blood culture 03/03/2020 no growth today Blood culture 03/07/2020 no growth today Urine culture 03/08/2020 Izzy albicans Assessment: 59 years old male with history of ALS with chronic respiratory failure on home BiPAP, admitted on 02/24/2020 due to worsening shortness of breath for 24 hours: #Severe sepsis: likely due to bilateral pneumonia +/- left gluteal necrotic pressure ulcer. Fever resolved, leukocytosis fluctuating. #Severe bilateral pneumonia: Likely community-acquired pneumonia. Procalcitonin elevated-1.13. CTA shows no PE but multifocal pneumonia with predominance left lower lobe. No DVT on US. Elevated D-dimer -1311. SARS-CoV-2 PCR negative. Sputum culture +Stenotrophomonas. CRP 26-->4. Prcal 1.1-->1.6. Repeat CXR near complete atelectasis resolved. Completed cefepime and vancomycin on 03/06/2020. Completed levofloxacin for 7 days on 03/12/2020. #Left gluteal necrotic pressure ulcer: S/p debridement, not infected per wound care. #Acute on chronic mixed respiratory failure: now on vent via trach. #ALS #Urinary retention: CT showed markedly distended bladder. Evaluated by urology, Reardon placed. Recommendations: -Monitor fever and leukocytosis -Continue off antibiotics Blanca Cueva MD, FACP [facility] O: [phone] F: [phone] Subjective Date of service: 03/15/20 Principal diagnosis: Ac on Ch Hypercapnic & hypoxemic Resp Failure; Severe Sepsis; Jamar PNA; ALS Interval history: Awake, no fever. Remains on the vent via trach. Objective - Exam Narrative Exam: Physical Exam: Constitutional: Awake, on the vent Head, Ears, Nose: Normocephalic, atraumatic. External ears, nose normal Eyes: Conjunctivae/corneas clear. No icterus. No ptosis. Neck: trach + Cardiovascular: S1, S2 + Respiratory: AE fair bilaterally and equal GI: Soft, bowel sounds + Musculoskeletal: No pedal edema, no cyanosis. Skin: No rash or abscess. Left buttock decubitus ulcer with dressing. Hem/Lymphatic: No palpable cervical or supraclavicular nodes. No lymphangitis Psych: no agitation Neurological: Awake, on the vent, exam limited. - Constitutional Vitals: Vital Signs Temp Pulse Resp BP Pulse Ox 99.1 F 96 H 22 147/99 98 03/15/20 08:00 03/15/20 11:16 03/15/20 11:16 03/15/20 11:16 03/15/20 11:16 Temperature -Last 24 Hours Temperature 99.1 F Temperature 99.3 F Temperature 99.0 F Temperature 99.1 F Temperature 99.4 F Temperature 98.9 F - Labs CBC & Chem 7: 03/15/20 08:06 03/15/20 08:06 Labs: Abnormal lab results 03/14/20 03/14/20 03/14/20 Range/Units 08:07 12:21 18:26 WBC (4.5-11.0) K/mm3 RBC (3.65-5.03) M/mm3 Hgb (11.8-15.2) gm/dl Hct (35.5-45.6) % RDW (13.2-15.2) % Seg Neuts % (Manual) 84.0 H (40.0-70.0) % Lymphocytes % (Manual) 10.0 L (13.4-35.0) % Seg Neutrophils # Man 14.1 H (1.8-7.7) K/mm3 Sodium (137-145) mmol/L Chloride (98-107) mmol/L Carbon Dioxide (22-30) mmol/L Creatinine (0.8-1.3) mg/dL Glucose (75-100) mg/dL POC Glucose 109 H 142 H (70-105) mg/dL 03/14/20 03/15/20 03/15/20 Range/Units 23:57 05:46 08:06 WBC 19.7 H (4.5-11.0) K/mm3 RBC 3.29 L (3.65-5.03) M/mm3 Hgb 9.1 L (11.8-15.2) gm/dl Hct 28.0 L (35.5-45.6) % RDW 15.9 H (13.2-15.2) % Seg Neuts % (Manual) (40.0-70.0) % Lymphocytes % (Manual) (13.4-35.0) % Seg Neutrophils # Man (1.8-7.7) K/mm3 Sodium (137-145) mmol/L Chloride (98-107) mmol/L Carbon Dioxide (22-30) mmol/L Creatinine (0.8-1.3) mg/dL Glucose (75-100) mg/dL POC Glucose 157 H 118 H (70-105) mg/dL 03/15/20 Range/Units 08:06 WBC (4.5-11.0) K/mm3 RBC (3.65-5.03) M/mm3 Hgb (11.8-15.2) gm/dl Hct (35.5-45.6) % RDW (13.2-15.2) % Seg Neuts % (Manual) (40.0-70.0) % Lymphocytes % (Manual) (13.4-35.0) % Seg Neutrophils # Man (1.8-7.7) K/mm3 Sodium 136 L (137-145) mmol/L Chloride 93.6 L (98-107) mmol/L Carbon Dioxide 37 H (22-30) mmol/L Creatinine < 0.2 L (0.8-1.3) mg/dL Glucose 132 H (75-100) mg/dL POC Glucose (70-105) mg/dL
--- NOTE | 2020-03-15 13:37 | Progress Note ---
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 Respiratory Failure Severe Sepsis with Shock Bilateral Pneumonia (Possible aspiration) History of ALS on Trilogy Oropharyngeal Dysphagia PUI-COVID Acute toxic metabolic encephalopathy Elevated D-dimer Elevated troponin possibly type 2 ischemia - continue daytime t-piece trials as tolerated (PSV if fails) - repeat CXR prn +/- broncoscopy for mucus plugging / large volume atelectasis - continue to rest on AC qhs - LTAC evaluation is appropriate - continue care as below otherwise; - continue Robinul & scopolamine for secretion control - prn electrolytes and optimize K+ & Mg 2+ for best respiratory muscle function - continue daily SAT and SBT assessment as tolerated - wound care per RN/WCN - continue Scopolamine patch for secretion control - wean supplemental oxygen for target O2 sat's > 92% acutely - bronchodilators with pulmonary hygiene per RT - VAP bundle addressed - continue lung protective strategies - continue bronchodilators with pulmonary hygiene per RT - wean per pulmonary driven protocols otherwise - sedation prn for target RASS 0 to -1 - s/p empiric antiinfectives per ID rec's (Rocephin and Zithromax) - COVID-19 isolation (Airborne & Contact) - empiric Dexamethasone - follow COVID-19 test results (negative) - trend inflammatory markers to aid clinical decision making - enteral nutrition at goal rate as tolerated - Aspiration precautions - accuchecks with glycemic control per SSI (While critically ill target blood glucose of 140-180 mg/dL; avoid hypoglycemia) - avoid nephrotoxins, renally dose all medications - avoid benzodiazepine's, reduce the possibility of delirium - prn analgesia per CPOT score - Maintenance of sleep-wake cycle, avoid delirium - aspiration precautions - G.I. & VTE prophylaxis - PT/OT/ROM exercises - mobility protocols for pressure ulcer prophylaxis - Monitor hemodynamics closely - continue other care per attending / other consultants - discharge planning ongoing concurrently .... Re-evaluate in am & prn CONDITION: CRITICAL PROGNOSIS: GUARDED CODE STATUS: FULL CODE The high probability of a clinically significant, sudden or life-threatening deterioration of the [respiratory, cardiovascular & neurologic] system(s) required my full and direct attention, intervention and personal management. The aggregate critical care time was [34] minutes without overlap. Time includes spent on; [x] Data Review and interpretation [x] Patient assessment and monitoring of vital signs [x] Documentation [x] Medication orders and management Subjective Date of service: 03/15/20 Principal diagnosis: Ac on Ch Hypercapnic & hypoxemic Resp Failure; Severe Sepsis; Jamar PNA; ALS Interval history: Patient is seen today for: Acute on Chronic Hypercapnic & hypoxemic Respiratory Failure; Severe Sepsis with Shock; Bilateral Pneumonia (Possible aspiration); History of ALS on Trilogy; PUI-COVID; Acute toxic metabolic encephalopathy Seen and examined at bedside; 24hour events reviewed; nursing and respiratory care staff consulted; no adverse overnight events reported to me; resting in bed; remains on MVS; still not tolerating t-piece trials; no new issues otherwise Objective Vital Signs - 12hr 03/15/20 03/15/20 03/15/20 01:40 01:46 02:00 Temperature Pulse Rate 114 H 114 H Pulse Rate [ From Monitor] Respiratory 13 15 Rate Blood Pressure 119/88 108/80 O2 Sat by Pulse 97 98 Oximetry O2 Sat by Pulse 100 Oximetry [ Assessment] 03/15/20 03/15/20 03/15/20 02:16 02:30 02:46 Temperature Pulse Rate 110 H 116 H 108 H Pulse Rate [ From Monitor] Respiratory 16 24 14 Rate Blood Pressure 108/80 117/85 117/85 O2 Sat by Pulse 97 95 97 Oximetry O2 Sat by Pulse Oximetry [ Assessment] 03/15/20 03/15/20 03/15/20 03:00 03:16 03:30 Temperature Pulse Rate 106 H 107 H 116 H Pulse Rate [ From Monitor] Respiratory 22 16 16 Rate Blood Pressure 115/81 115/81 123/89 O2 Sat by Pulse 98 98 98 Oximetry O2 Sat by Pulse Oximetry [ Assessment] 03/15/20 03/15/20 03/15/20 03:46 04:00 04:16 Temperature 99.3 F Pulse Rate 104 H 114 H 110 H Pulse Rate [ 120 H From Monitor] Respiratory 12 16 19 Rate Blood Pressure 123/89 118/89 118/89 O2 Sat by Pulse 98 97 97 Oximetry O2 Sat by Pulse Oximetry [ Assessment] 03/15/20 03/15/20 03/15/20 04:30 04:46 05:00 Temperature Pulse Rate 109 H 106 H 109 H Pulse Rate [ From Monitor] Respiratory 19 17 17 Rate Blood Pressure 114/81 114/81 121/88 O2 Sat by Pulse 97 98 98 Oximetry O2 Sat by Pulse Oximetry [ Assessment] 03/15/20 03/15/20 03/15/20 05:03 05:16 05:30 Temperature Pulse Rate 104 H 102 H 100 H Pulse Rate [ From Monitor] Respiratory 12 13 Rate Blood Pressure 121/88 121/88 128/91 O2 Sat by Pulse 98 97 97 Oximetry O2 Sat by Pulse Oximetry [ Assessment] 03/15/20 03/15/20 03/15/20 05:46 06:00 06:16 Temperature Pulse Rate 108 H 105 H 102 H Pulse Rate [ From Monitor] Respiratory 24 15 13 Rate Blood Pressure 128/91 128/91 128/91 O2 Sat by Pulse 98 98 98 Oximetry O2 Sat by Pulse Oximetry [ Assessment] 03/15/20 03/15/20 03/15/20 06:30 06:46 07:00 Temperature Pulse Rate 105 H 102 H 102 H Pulse Rate [ From Monitor] Respiratory 15 21 17 Rate Blood Pressure 123/85 123/85 118/86 O2 Sat by Pulse 96 97 97 Oximetry O2 Sat by Pulse Oximetry [ Assessment] 03/15/20 03/15/20 03/15/20 07:16 07:30 07:46 Temperature Pulse Rate 102 H 107 H 106 H Pulse Rate [ From Monitor] Respiratory 18 15 27 H Rate Blood Pressure 118/86 120/86 120/86 O2 Sat by Pulse 97 97 98 Oximetry O2 Sat by Pulse Oximetry [ Assessment] 03/15/20 03/15/20 03/15/20 08:00 08:08 08:16 Temperature 99.1 F Pulse Rate 105 H 105 H 100 H Pulse Rate [ 105 H From Monitor] Respiratory 28 H 28 H 19 Rate Blood Pressure 126/89 126/89 126/89 O2 Sat by Pulse 98 98 98 Oximetry O2 Sat by Pulse Oximetry [ Assessment] 03/15/20 03/15/20 03/15/20 08:26 08:30 08:46 Temperature Pulse Rate 100 H 101 H Pulse Rate [ From Monitor] Respiratory 27 H 29 H 16 Rate Blood Pressure 131/92 131/92 O2 Sat by Pulse 98 97 Oximetry O2 Sat by Pulse Oximetry [ Assessment] 03/15/20 03/15/20 03/15/20 08:56 09:00 09:16 Temperature Pulse Rate 98 H 101 H Pulse Rate [ From Monitor] Respiratory 21 25 H 30 H Rate Blood Pressure 149/96 149/96 O2 Sat by Pulse 97 98 Oximetry O2 Sat by Pulse Oximetry [ Assessment] 03/15/20 03/15/20 03/15/20 09:25 09:30 09:46 Temperature Pulse Rate 105 H 100 H 101 H Pulse Rate [ From Monitor] Respiratory 25 H 20 Rate Blood Pressure 149/96 152/97 152/97 O2 Sat by Pulse 96 97 Oximetry O2 Sat by Pulse Oximetry [ Assessment] 03/15/20 03/15/20 03/15/20 10:00 10:16 10:30 Temperature Pulse Rate 97 H 102 H 97 H Pulse Rate [ From Monitor] Respiratory 30 H 25 H 31 H Rate Blood Pressure 136/95 136/95 139/98 O2 Sat by Pulse 97 97 96 Oximetry O2 Sat by Pulse Oximetry [ Assessment] 03/15/20 03/15/20 03/15/20 10:46 11:00 11:16 Temperature Pulse Rate 102 H 99 H 96 H Pulse Rate [ From Monitor] Respiratory 24 32 H 22 Rate Blood Pressure 139/98 147/99 147/99 O2 Sat by Pulse 97 96 98 Oximetry O2 Sat by Pulse Oximetry [ Assessment] 03/15/20 03/15/20 03/15/20 11:30 11:40 11:46 Temperature Pulse Rate 98 H 96 H 95 H Pulse Rate [ From Monitor] Respiratory 34 H 22 25 H Rate Blood Pressure 141/92 147/99 141/92 O2 Sat by Pulse 98 98 97 Oximetry O2 Sat by Pulse Oximetry [ Assessment] 03/15/20 03/15/20 03/15/20 12:00 12:16 12:30 Temperature 98.5 F Pulse Rate 97 H 104 H 99 H Pulse Rate [ 97 H From Monitor] Respiratory 29 H 27 H 24 Rate Blood Pressure 136/92 136/92 126/87 O2 Sat by Pulse 97 98 97 Oximetry O2 Sat by Pulse Oximetry [ Assessment] 03/15/20 03/15/20 03/15/20 12:46 13:00 13:16 Temperature Pulse Rate 104 H 98 H 105 H Pulse Rate [ From Monitor] Respiratory 30 H 23 27 H Rate Blood Pressure 126/87 136/88 136/88 O2 Sat by Pulse 97 97 97 Oximetry O2 Sat by Pulse Oximetry [ Assessment] Constitutional: no acute distress, other (thin middle aged male with normal respiratory effort at rest on MVS) Eyes: non-icteric ENT: oropharynx moist, other (S/P Tracheostomy) Neck: supple, no lymphadenopathy, no JVD Effort: mildly labored Ascultation: Bilateral: rhonchi (and referred upper airway sounds) Percussion: Bilateral: not dull Cardiovascular: regular rate and rhythm, other (S1,S2, no murmurs) Gastrointestinal: normoactive bowel sounds, soft, non-tender, non-distended, other (+ distended but non tender suprapubis) Integumentary: normal, decubitus ulcer (sacral / gluteal) Extremities: no cyanosis, no edema, pulses normal, other (atrophic looking limbs) Neurologic: pupils equal and round, other (motor strength in extremities 1-2/5) Psychiatric: depressed CBC and BMP: 03/15/20 08:06 03/15/20 08:06 ABG, PT/INR, D-dimer: ABG ABG pH 7.371 (7.320-7.450) 03/08/20 12:34 POC ABG pCO2 63.1 mmHg (32.0-48.0) H 03/08/20 12:34 ABG pCO2 60.1 mm Hg 03/06/20 04:34 POC ABG pO2 90.5 mmHg (83-108) 03/08/20 12:34 ABG pO2 88.6 mm Hg (80.0-90.0) 03/06/20 04:34 POC ABG HCO3 35.7 03/08/20 12:34 ABG O2 Saturation 97.0 % (95.0-99.0) 03/06/20 04:34 PT/INR, D-dimer PT 15.6 Sec. (12.2-14.9) H 02/24/20 09:19 INR 1.21 (0.87-1.13) H 02/24/20 09:19 D-Dimer 1311.96 ng/mlDDU (0-234) H 02/24/20 09:19 Abnormal lab findings: Abnormal Labs 02/24/20 02/24/20 02/24/20 09:19 09:19 09:19 WBC 20.2 H RBC 5.05 H Hgb Hct MCV MCH RDW 15.3 H Plt Count Lymph % (Auto) Howell # (Auto) Seg Neutrophils % Seg Neuts % (Manual) 86.0 H Lymphocytes % (Manual) 1.0 L Monocytes % (Manual) Seg Neutrophils # Seg Neutrophils # Man 17.4 H Lymphocytes # (Manual) 0.2 L Monocytes # (Manual) Eosinophils # (Manual) PT 15.6 H INR 1.21 H D-Dimer 1311.96 H ABG pH POC ABG pCO2 POC ABG pO2 ABG pO2 ABG HCO3 ABG O2 Saturation ABG Base Excess ABG Hemoglobin ABG Oxyhemoglobin ABG Potassium ABG Glucose Oxyhemoglobin Carboxyhemoglobin Sodium 135 L Potassium 3.2 L Chloride 92.2 L Carbon Dioxide BUN 6 L Creatinine < 0.2 L Glucose 124 H POC Glucose Calcium Ferritin Total Bilirubin 2.30 H Alkaline Phosphatase 132 H Lactate Dehydrogenase Troponin T 0.080 H C-Reactive Protein Total Protein Albumin 3.6 L Prealbumin LDL Cholesterol Direct 41 L Arterial Blood Glucose Arterial Blood Ionized Calcium Urine WBC (Auto) 02/24/20 02/24/20 02/24/20 09:19 09:58 10:01 WBC RBC Hgb Hct MCV MCH RDW Plt Count Lymph % (Auto) Howell # (Auto) Seg Neutrophils % Seg Neuts % (Manual) Lymphocytes % (Manual) Monocytes % (Manual) Seg Neutrophils # Seg Neutrophils # Man Lymphocytes # (Manual) Monocytes # (Manual) Eosinophils # (Manual) PT INR D-Dimer ABG pH 7.176 L* POC ABG pCO2 POC ABG pO2 ABG pO2 91.2 H ABG HCO3 ABG O2 Saturation ABG Base Excess -4.6 L ABG Hemoglobin ABG Oxyhemoglobin ABG Potassium ABG Glucose Oxyhemoglobin 92.6 L Carboxyhemoglobin Sodium Potassium Chloride Carbon Dioxide BUN Creatinine Glucose POC Glucose Calcium Ferritin 1715.0 H Total Bilirubin Alkaline Phosphatase Lactate Dehydrogenase 303 H Troponin T C-Reactive Protein 26.10 H Total Protein Albumin Prealbumin LDL Cholesterol Direct Arterial Blood Glucose Arterial Blood Ionized Calcium Urine WBC (Auto) 02/24/20 02/24/20 02/24/20 11:52 13:45 19:35 WBC RBC Hgb Hct MCV MCH RDW Plt Count Lymph % (Auto) Howell # (Auto) Seg Neutrophils % Seg Neuts % (Manual) Lymphocytes % (Manual) Monocytes % (Manual) Seg Neutrophils # Seg Neutrophils # Man Lymphocytes # (Manual) Monocytes # (Manual) Eosinophils # (Manual) PT INR D-Dimer ABG pH 7.051 L* 7.300 L POC ABG pCO2 POC ABG pO2 ABG pO2 94.7 H 75.1 L ABG HCO3 18.0 L ABG O2 Saturation 93.5 L ABG Base Excess -6.8 L -7.8 L ABG Hemoglobin 13.2 L 11.9 L ABG Oxyhemoglobin ABG Potassium ABG Glucose Oxyhemoglobin 91.0 L 92.7 L Carboxyhemoglobin Sodium Potassium Chloride Carbon Dioxide BUN Creatinine Glucose POC Glucose Calcium Ferritin Total Bilirubin Alkaline Phosphatase Lactate Dehydrogenase Troponin T 0.034 H D C-Reactive Protein Total Protein Albumin Prealbumin LDL Cholesterol Direct Arterial Blood Glucose Arterial Blood Ionized Calcium Urine WBC (Auto) 02/25/20 02/25/20 02/25/20 04:00 04:00 12:26 WBC 22.9 H RBC Hgb Hct MCV 83 L MCH 27 L RDW Plt Count 468 H Lymph % (Auto) Howell # (Auto) Seg Neutrophils % Seg Neuts % (Manual) 89.0 H Lymphocytes % (Manual) 7.0 L Monocytes % (Manual) Seg Neutrophils # Seg Neutrophils # Man 20.4 H Lymphocytes # (Manual) Monocytes # (Manual) Eosinophils # (Manual) PT INR D-Dimer ABG pH POC ABG pCO2 POC ABG pO2 ABG pO2 ABG HCO3 ABG O2 Saturation ABG Base Excess ABG Hemoglobin ABG Oxyhemoglobin ABG Potassium 2.6 L ABG Glucose 142 H Oxyhemoglobin Carboxyhemoglobin Sodium Potassium 3.2 L Chloride Carbon Dioxide 18 L BUN Creatinine 0.2 L Glucose 114 H POC Glucose Calcium Ferritin Total Bilirubin Alkaline Phosphatase Lactate Dehydrogenase Troponin T C-Reactive Protein Total Protein Albumin 3.5 L Prealbumin LDL Cholesterol Direct Arterial Blood Glucose 142 H Arterial Blood Ionized Calcium Urine WBC (Auto) 02/26/20 02/26/20 02/26/20 15:58 17:00 23:43 WBC RBC Hgb Hct MCV MCH RDW Plt Count Lymph % (Auto) Howell # (Auto) Seg Neutrophils % Seg Neuts % (Manual) Lymphocytes % (Manual) Monocytes % (Manual) Seg Neutrophils # Seg Neutrophils # Man Lymphocytes # (Manual) Monocytes # (Manual) Eosinophils # (Manual) PT INR D-Dimer ABG pH 7.502 H POC ABG pCO2 POC ABG pO2 213.6 H ABG pO2 ABG HCO3 ABG O2 Saturation ABG Base Excess ABG Hemoglobin ABG Oxyhemoglobin 99.2 H ABG Potassium 2.9 L ABG Glucose 160 H Oxyhemoglobin Carboxyhemoglobin 0.4 L Sodium Potassium Chloride Carbon Dioxide BUN Creatinine Glucose POC Glucose 189 H 120 H Calcium Ferritin Total Bilirubin Alkaline Phosphatase Lactate Dehydrogenase Troponin T C-Reactive Protein Total Protein Albumin Prealbumin LDL Cholesterol Direct Arterial Blood Glucose 160 H Arterial Blood Ionized Calcium 4.5 L Urine WBC (Auto) 02/27/20 02/27/20 02/27/20 05:00 07:04 17:45 WBC RBC Hgb Hct MCV MCH RDW Plt Count Lymph % (Auto) Howell # (Auto) Seg Neutrophils % Seg Neuts % (Manual) Lymphocytes % (Manual) Monocytes % (Manual) Seg Neutrophils # Seg Neutrophils # Man Lymphocytes # (Manual) Monocytes # (Manual) Eosinophils # (Manual) PT INR D-Dimer ABG pH 7.524 H POC ABG pCO2 POC ABG pO2 ABG pO2 ABG HCO3 ABG O2 Saturation ABG Base Excess ABG Hemoglobin ABG Oxyhemoglobin ABG Potassium 3.0 L ABG Glucose 143 H Oxyhemoglobin Carboxyhemoglobin Sodium Potassium Chloride Carbon Dioxide BUN Creatinine Glucose POC Glucose 154 H 175 H Calcium Ferritin Total Bilirubin Alkaline Phosphatase Lactate Dehydrogenase Troponin T C-Reactive Protein Total Protein Albumin Prealbumin LDL Cholesterol Direct Arterial Blood Glucose 143 H Arterial Blood Ionized Calcium Urine WBC (Auto) 02/27/20 02/28/20 02/28/20 Unknown 00:21 04:15 WBC 18.7 H RBC Hgb Hct MCV MCH RDW Plt Count Lymph % (Auto) 8.7 L Howell # (Auto) 1.2 H Seg Neutrophils % 84.6 H Seg Neuts % (Manual) Lymphocytes % (Manual) Monocytes % (Manual) Seg Neutrophils # 15.9 H Seg Neutrophils # Man Lymphocytes # (Manual) Monocytes # (Manual) Eosinophils # (Manual) PT INR D-Dimer ABG pH POC ABG pCO2 POC ABG pO2 ABG pO2 ABG HCO3 ABG O2 Saturation ABG Base Excess ABG Hemoglobin ABG Oxyhemoglobin ABG Potassium ABG Glucose Oxyhemoglobin Carboxyhemoglobin Sodium Potassium 2.9 L* Chloride Carbon Dioxide 33 H D BUN Creatinine < 0.2 L Glucose 157 H POC Glucose 134 H Calcium Ferritin Total Bilirubin Alkaline Phosphatase Lactate Dehydrogenase Troponin T C-Reactive Protein Total Protein Albumin Prealbumin LDL Cholesterol Direct Arterial Blood Glucose Arterial Blood Ionized Calcium Urine WBC (Auto) 02/28/20 02/28/2002/27/20 04:15 05:16 05:39 WBC RBC Hgb Hct MCV MCH RDW Plt Count Lymph % (Auto) [place] # (Auto) Seg Neutrophils % Seg Neuts % (Manual) Lymphocytes % (Manual) Monocytes % (Manual) Seg Neutrophils # Seg Neutrophils # Man Lymphocytes # (Manual) Monocytes # (Manual) Eosinophils # (Manual) PT INR D-Dimer ABG pH POC ABG pCO2 POC ABG pO2 ABG pO2 142.9 H ABG HCO3 34.1 H ABG O2 Saturation ABG Base Excess 8.3 H ABG Hemoglobin ABG Oxyhemoglobin ABG Potassium ABG Glucose Oxyhemoglobin Carboxyhemoglobin Sodium 151 H Potassium Chloride Carbon Dioxide 32 H BUN Creatinine 0.2 L Glucose 167 H POC Glucose 138 H Calcium Ferritin Total Bilirubin Alkaline Phosphatase Lactate Dehydrogenase Troponin T C-Reactive Protein Total Protein Albumin Prealbumin LDL Cholesterol Direct Arterial Blood Glucose Arterial Blood Ionized Calcium Urine WBC (Auto) 02/28/20 02/28/20 02/28/20 11:05 11:33 12:54 WBC RBC Hgb Hct MCV MCH RDW Plt Count Lymph % (Auto) [place] # (Auto) Seg Neutrophils % Seg Neuts % (Manual) Lymphocytes % (Manual) Monocytes % (Manual) Seg Neutrophils # Seg Neutrophils # Man Lymphocytes # (Manual) Monocytes # (Manual) Eosinophils # (Manual) PT INR D-Dimer ABG pH POC ABG pCO2 POC ABG pO2 ABG pO2 ABG HCO3 ABG O2 Saturation ABG Base Excess ABG Hemoglobin ABG Oxyhemoglobin ABG Potassium ABG Glucose Oxyhemoglobin Carboxyhemoglobin Sodium Potassium Chloride Carbon Dioxide BUN Creatinine Glucose POC Glucose 160 H Calcium Ferritin Total Bilirubin Alkaline Phosphatase Lactate Dehydrogenase Troponin T C-Reactive Protein 4.70 H Total Protein Albumin Prealbumin 0.090 L LDL Cholesterol Direct Arterial Blood Glucose Arterial Blood Ionized Calcium Urine WBC (Auto) 02/28/20 02/29/20 02/29/20 17:34 00:44 04:05 WBC 19.6 H RBC Hgb Hct MCV MCH 27 L RDW 15.4 H Plt Count Lymph % (Auto) [place] # (Auto) Seg Neutrophils % Seg Neuts % (Manual) 86.0 H Lymphocytes % (Manual) 7.0 L Monocytes % (Manual) Seg Neutrophils # Seg Neutrophils # Man 16.9 H Lymphocytes # (Manual) Monocytes # (Manual) 1.2 H Eosinophils # (Manual) PT INR D-Dimer ABG pH POC ABG pCO2 POC ABG pO2 ABG pO2 ABG HCO3 ABG O2 Saturation ABG Base Excess ABG Hemoglobin ABG Oxyhemoglobin ABG Potassium ABG Glucose Oxyhemoglobin Carboxyhemoglobin Sodium Potassium Chloride Carbon Dioxide BUN Creatinine Glucose POC Glucose 136 H 156 H Calcium Ferritin Total Bilirubin Alkaline Phosphatase Lactate Dehydrogenase Troponin T C-Reactive Protein Total Protein Albumin Prealbumin LDL Cholesterol Direct Arterial Blood Glucose Arterial Blood Ionized Calcium Urine WBC (Auto) 02/29/20 02/29/20 02/29/20 04:05 05:14 05:33 WBC RBC Hgb Hct MCV MCH RDW Plt Count Lymph % (Auto) [place] # (Auto) Seg Neutrophils % Seg Neuts % (Manual) Lymphocytes % (Manual) Monocytes % (Manual) Seg Neutrophils # Seg Neutrophils # Man Lymphocytes # (Manual) Monocytes # (Manual) Eosinophils # (Manual) PT INR D-Dimer ABG pH POC ABG pCO2 54.3 H POC ABG pO2 124.8 H ABG pO2 ABG HCO3 ABG O2 Saturation ABG Base Excess ABG Hemoglobin ABG Oxyhemoglobin ABG Potassium ABG Glucose 185 H Oxyhemoglobin Carboxyhemoglobin Sodium 148 H Potassium Chloride Carbon Dioxide 33 H BUN Creatinine < 0.2 L Glucose 173 H POC Glucose 152 H Calcium Ferritin Total Bilirubin Alkaline Phosphatase Lactate Dehydrogenase Troponin T C-Reactive Protein Total Protein Albumin Prealbumin LDL Cholesterol Direct Arterial Blood Glucose 185 H Arterial Blood Ionized Calcium Urine WBC (Auto) 03/01/20 03/01/20 03/01/20 00:00 03:45 04:33 WBC 23.1 H RBC Hgb Hct MCV MCH 27 L RDW 15.3 H Plt Count Lymph % (Auto) [place] # (Auto) Seg Neutrophils % Seg Neuts % (Manual) 92.0 H Lymphocytes % (Manual) 6.0 L Monocytes % (Manual) Seg Neutrophils # Seg Neutrophils # Man 21.3 H Lymphocytes # (Manual) Monocytes # (Manual) Eosinophils # (Manual) 0.5 H PT INR D-Dimer ABG pH 7.492 H POC ABG pCO2 POC ABG pO2 ABG pO2 157.1 H ABG HCO3 32.3 H ABG O2 Saturation ABG Base Excess 8.1 H ABG Hemoglobin 13.2 L ABG Oxyhemoglobin ABG Potassium ABG Glucose Oxyhemoglobin Carboxyhemoglobin Sodium Potassium Chloride Carbon Dioxide BUN Creatinine Glucose POC Glucose 109 H Calcium Ferritin Total Bilirubin Alkaline Phosphatase Lactate Dehydrogenase Troponin T C-Reactive Protein Total Protein Albumin Prealbumin LDL Cholesterol Direct Arterial Blood Glucose Arterial Blood Ionized Calcium Urine WBC (Auto) 03/01/20 03/01/20 03/01/20 04:33 05:29 12:32 WBC RBC Hgb Hct MCV MCH RDW Plt Count Lymph % (Auto) [place] # (Auto) Seg Neutrophils % Seg Neuts % (Manual) Lymphocytes % (Manual) Monocytes % (Manual) Seg Neutrophils # Seg Neutrophils # Man Lymphocytes # (Manual) Monocytes # (Manual) Eosinophils # (Manual) PT INR D-Dimer ABG pH POC ABG pCO2 POC ABG pO2 ABG pO2 ABG HCO3 ABG O2 Saturation ABG Base Excess ABG Hemoglobin ABG Oxyhemoglobin ABG Potassium ABG Glucose Oxyhemoglobin Carboxyhemoglobin Sodium 146 H Potassium Chloride Carbon Dioxide 32 H BUN Creatinine < 0.2 L Glucose 120 H POC Glucose 120 H 128 H Calcium Ferritin Total Bilirubin Alkaline Phosphatase Lactate Dehydrogenase Troponin T C-Reactive Protein Total Protein Albumin Prealbumin LDL Cholesterol Direct Arterial Blood Glucose Arterial Blood Ionized Calcium Urine WBC (Auto) 03/01/20 03/01/20 03/02/20 17:38 23:46 06:13 WBC RBC Hgb Hct MCV MCH RDW Plt Count Lymph % (Auto) [place] # (Auto) Seg Neutrophils % Seg Neuts % (Manual) Lymphocytes % (Manual) Monocytes % (Manual) Seg Neutrophils # Seg Neutrophils # Man Lymphocytes # (Manual) Monocytes # (Manual) Eosinophils # (Manual) PT INR D-Dimer ABG pH POC ABG pCO2 POC ABG pO2 ABG pO2 ABG HCO3 ABG O2 Saturation ABG Base Excess ABG Hemoglobin ABG Oxyhemoglobin ABG Potassium ABG Glucose Oxyhemoglobin Carboxyhemoglobin Sodium Potassium Chloride Carbon Dioxide BUN Creatinine Glucose POC Glucose 114 H 121 H 120 H Calcium Ferritin Total Bilirubin Alkaline Phosphatase Lactate Dehydrogenase Troponin T C-Reactive Protein Total Protein Albumin Prealbumin LDL Cholesterol Direct Arterial Blood Glucose Arterial Blood Ionized Calcium Urine WBC (Auto) 03/02/20 03/02/20 03/03/20 09:47 09:47 10:21 WBC 23.6 H RBC Hgb Hct MCV MCH RDW 15.3 H Plt Count 494 H Lymph % (Auto) [place] # (Auto) Seg Neutrophils % Seg Neuts % (Manual) 85.0 H Lymphocytes % (Manual) 6.0 L Monocytes % (Manual) Seg Neutrophils # Seg Neutrophils # Man 20.1 H Lymphocytes # (Manual) Monocytes # (Manual) 1.7 H Eosinophils # (Manual) PT INR D-Dimer ABG pH POC ABG pCO2 POC ABG pO2 ABG pO2 ABG HCO3 ABG O2 Saturation ABG Base Excess ABG Hemoglobin ABG Oxyhemoglobin ABG Potassium 3.3 L ABG Glucose 158 H Oxyhemoglobin Carboxyhemoglobin Sodium Potassium Chloride Carbon Dioxide BUN Creatinine < 0.2 L Glucose 177 H POC Glucose Calcium Ferritin Total Bilirubin Alkaline Phosphatase Lactate Dehydrogenase Troponin T C-Reactive Protein Total Protein Albumin Prealbumin LDL Cholesterol Direct Arterial Blood Glucose 158 H Arterial Blood Ionized Calcium Urine WBC (Auto) 03/03/20 03/04/20 03/04/20 21:30 00:00 12:23 WBC RBC Hgb Hct MCV MCH RDW Plt Count Lymph % (Auto) [place] # (Auto) Seg Neutrophils % Seg Neuts % (Manual) Lymphocytes % (Manual) Monocytes % (Manual) Seg Neutrophils # Seg Neutrophils # Man Lymphocytes # (Manual) Monocytes # (Manual) Eosinophils # (Manual) PT INR D-Dimer ABG pH 7.328 L POC ABG pCO2 POC ABG pO2 ABG pO2 68.4 L ABG HCO3 35.0 H ABG O2 Saturation 93.9 L ABG Base Excess 6.8 H ABG Hemoglobin 12.7 L ABG Oxyhemoglobin ABG Potassium ABG Glucose Oxyhemoglobin 91.9 L Carboxyhemoglobin Sodium Potassium Chloride Carbon Dioxide BUN Creatinine Glucose POC Glucose 187 H 163 H Calcium Ferritin Total Bilirubin Alkaline Phosphatase Lactate Dehydrogenase Troponin T C-Reactive Protein Total Protein Albumin Prealbumin LDL Cholesterol Direct Arterial Blood Glucose Arterial Blood Ionized Calcium Urine WBC (Auto) 03/04/20 03/04/20 03/05/20 18:15 21:30 06:02 WBC RBC Hgb Hct MCV MCH RDW Plt Count Lymph % (Auto) [place] # (Auto) Seg Neutrophils % Seg Neuts % (Manual) Lymphocytes % (Manual) Monocytes % (Manual) Seg Neutrophils # Seg Neutrophils # Man Lymphocytes # (Manual) Monocytes # (Manual) Eosinophils # (Manual) PT INR D-Dimer ABG pH 7.297 L POC ABG pCO2 POC ABG pO2 ABG pO2 ABG HCO3 41.0 H ABG O2 Saturation ABG Base Excess 11.0 H ABG Hemoglobin 13.1 L ABG Oxyhemoglobin ABG Potassium ABG Glucose Oxyhemoglobin 94.5 L Carboxyhemoglobin Sodium Potassium Chloride Carbon Dioxide BUN Creatinine Glucose POC Glucose 192 H 127 H Calcium Ferritin Total Bilirubin Alkaline Phosphatase Lactate Dehydrogenase Troponin T C-Reactive Protein Total Protein Albumin Prealbumin LDL Cholesterol Direct Arterial Blood Glucose Arterial Blood Ionized Calcium Urine WBC (Auto) 03/05/20 03/05/20 03/06/20 12:09 16:42 00:24 WBC RBC Hgb Hct MCV MCH RDW Plt Count Lymph % (Auto) [place] # (Auto) Seg Neutrophils % Seg Neuts % (Manual) Lymphocytes % (Manual) Monocytes % (Manual) Seg Neutrophils # Seg Neutrophils # Man Lymphocytes # (Manual) Monocytes # (Manual) Eosinophils # (Manual) PT INR D-Dimer ABG pH POC ABG pCO2 POC ABG pO2 ABG pO2 ABG HCO3 ABG O2 Saturation ABG Base Excess ABG Hemoglobin ABG Oxyhemoglobin ABG Potassium ABG Glucose Oxyhemoglobin Carboxyhemoglobin Sodium Potassium Chloride Carbon Dioxide BUN Creatinine Glucose POC Glucose 147 H 114 H 134 H Calcium Ferritin Total Bilirubin Alkaline Phosphatase Lactate Dehydrogenase Troponin T C-Reactive Protein Total Protein Albumin Prealbumin LDL Cholesterol Direct Arterial Blood Glucose Arterial Blood Ionized Calcium Urine WBC (Auto) 03/06/20 03/06/20 03/06/20 04:34 05:53 06:08 WBC 25.4 H RBC Hgb 10.5 L Hct 32.7 L MCV MCH 27 L RDW 15.3 H Plt Count 634 H Lymph % (Auto) [place] # (Auto) Seg Neutrophils % Seg Neuts % (Manual) 88.0 H Lymphocytes % (Manual) 2.0 L Monocytes % (Manual) 8.0 H Seg Neutrophils # Seg Neutrophils # Man 22.4 H Lymphocytes # (Manual) 0.5 L Monocytes # (Manual) 2.0 H Eosinophils # (Manual) PT INR D-Dimer ABG pH POC ABG pCO2 POC ABG pO2 ABG pO2 ABG HCO3 37.9 H ABG O2 Saturation ABG Base Excess 11.4 H ABG Hemoglobin 10.6 L ABG Oxyhemoglobin ABG Potassium ABG Glucose Oxyhemoglobin 94.7 L Carboxyhemoglobin Sodium Potassium Chloride Carbon Dioxide BUN Creatinine Glucose POC Glucose 135 H Calcium Ferritin Total Bilirubin Alkaline Phosphatase Lactate Dehydrogenase Troponin T C-Reactive Protein Total Protein Albumin Prealbumin LDL Cholesterol Direct Arterial Blood Glucose Arterial Blood Ionized Calcium Urine WBC (Auto) 03/06/20 03/06/20 03/06/20 06:08 12:19 19:10 WBC RBC Hgb Hct MCV MCH RDW Plt Count Lymph % (Auto) [place] # (Auto) Seg Neutrophils % Seg Neuts % (Manual) Lymphocytes % (Manual) Monocytes % (Manual) Seg Neutrophils # Seg Neutrophils # Man Lymphocytes # (Manual) Monocytes # (Manual) Eosinophils # (Manual) PT INR D-Dimer ABG pH POC ABG pCO2 POC ABG pO2 ABG pO2 ABG HCO3 ABG O2 Saturation ABG Base Excess ABG Hemoglobin ABG Oxyhemoglobin ABG Potassium ABG Glucose Oxyhemoglobin Carboxyhemoglobin Sodium 150 H D Potassium Chloride Carbon Dioxide 39 H D BUN 23 H Creatinine < 0.2 L Glucose 144 H POC Glucose 169 H 152 H Calcium Ferritin Total Bilirubin Alkaline Phosphatase Lactate Dehydrogenase Troponin T C-Reactive Protein Total Protein Albumin 3.3 L Prealbumin LDL Cholesterol Direct Arterial Blood Glucose Arterial Blood Ionized Calcium Urine WBC (Auto) 03/06/20 03/07/20 03/07/20 23:58 04:25 04:25 WBC 22.1 H RBC Hgb 10.9 L Hct 32.9 L MCV MCH RDW 15.5 H Plt Count 739 H Lymph % (Auto) 7.8 L [place] # (Auto) 1.3 H Seg Neutrophils % 85.5 H Seg Neuts % (Manual) Lymphocytes % (Manual) Monocytes % (Manual) Seg Neutrophils # 18.9 H Seg Neutrophils # Man Lymphocytes # (Manual) Monocytes # (Manual) Eosinophils # (Manual) PT INR D-Dimer ABG pH POC ABG pCO2 POC ABG pO2 ABG pO2 ABG HCO3 ABG O2 Saturation ABG Base Excess ABG Hemoglobin ABG Oxyhemoglobin ABG Potassium ABG Glucose Oxyhemoglobin Carboxyhemoglobin Sodium 146 H Potassium Chloride Carbon Dioxide 37 H BUN Creatinine < 0.2 L Glucose 118 H POC Glucose 111 H Calcium Ferritin Total Bilirubin Alkaline Phosphatase Lactate Dehydrogenase Troponin T C-Reactive Protein Total Protein Albumin 3.7 L Prealbumin LDL Cholesterol Direct Arterial Blood Glucose Arterial Blood Ionized Calcium Urine WBC (Auto) 03/07/20 03/07/20 03/07/20 05:20 17:45 23:32 WBC RBC Hgb Hct MCV MCH RDW Plt Count Lymph % (Auto) [place] # (Auto) Seg Neutrophils % Seg Neuts % (Manual) Lymphocytes % (Manual) Monocytes % (Manual) Seg Neutrophils # Seg Neutrophils # Man Lymphocytes # (Manual) Monocytes # (Manual) Eosinophils # (Manual) PT INR D-Dimer ABG pH POC ABG pCO2 POC ABG pO2 ABG pO2 ABG HCO3 ABG O2 Saturation ABG Base Excess ABG Hemoglobin ABG Oxyhemoglobin ABG Potassium ABG Glucose Oxyhemoglobin Carboxyhemoglobin Sodium Potassium Chloride Carbon Dioxide BUN Creatinine Glucose POC Glucose 113 H 124 H 210 H Calcium Ferritin Total Bilirubin Alkaline Phosphatase Lactate Dehydrogenase Troponin T C-Reactive Protein Total Protein Albumin Prealbumin LDL Cholesterol Direct Arterial Blood Glucose Arterial Blood Ionized Calcium Urine WBC (Auto) 03/08/20 03/08/20 03/08/20 05:35 06:43 06:43 WBC 28.9 H RBC 3.53 L Hgb 9.7 L Hct 30.3 L MCV MCH RDW 15.6 H Plt Count 578 H Lymph % (Auto) [place] # (Auto) Seg Neutrophils % Seg Neuts % (Manual) 93.0 H Lymphocytes % (Manual) 4.0 L Monocytes % (Manual) Seg Neutrophils # Seg Neutrophils # Man 26.9 H Lymphocytes # (Manual) Monocytes # (Manual) Eosinophils # (Manual) PT INR D-Dimer ABG pH POC ABG pCO2 POC ABG pO2 ABG pO2 ABG HCO3 ABG O2 Saturation ABG Base Excess ABG Hemoglobin ABG Oxyhemoglobin ABG Potassium ABG Glucose Oxyhemoglobin Carboxyhemoglobin Sodium 146 H Potassium Chloride Carbon Dioxide 35 H BUN 34 H Creatinine 0.3 L D Glucose 125 H POC Glucose 147 H Calcium Ferritin Total Bilirubin Alkaline Phosphatase Lactate Dehydrogenase Troponin T C-Reactive Protein Total Protein 5.9 L Albumin 3.2 L Prealbumin LDL Cholesterol Direct Arterial Blood Glucose Arterial Blood Ionized Calcium Urine WBC (Auto) 03/08/20 03/08/20 03/08/20 08:57 11:14 12:34 WBC RBC Hgb Hct MCV MCH RDW Plt Count Lymph % (Auto) [place] # (Auto) Seg Neutrophils % Seg Neuts % (Manual) Lymphocytes % (Manual) Monocytes % (Manual) Seg Neutrophils # Seg Neutrophils # Man Lymphocytes # (Manual) Monocytes # (Manual) Eosinophils # (Manual) PT INR D-Dimer ABG pH POC ABG pCO2 63.1 H POC ABG pO2 ABG pO2 ABG HCO3 ABG O2 Saturation ABG Base Excess ABG Hemoglobin 10.9 L ABG Oxyhemoglobin ABG Potassium ABG Glucose 176 H Oxyhemoglobin Carboxyhemoglobin Sodium Potassium Chloride Carbon Dioxide BUN Creatinine Glucose POC Glucose 171 H Calcium Ferritin Total Bilirubin Alkaline Phosphatase Lactate Dehydrogenase Troponin T C-Reactive Protein Total Protein Albumin Prealbumin LDL Cholesterol Direct Arterial Blood Glucose 176 H Arterial Blood Ionized Calcium 4.5 L Urine WBC (Auto) 10.0 H 03/08/20 03/08/20 03/09/20 18:02 23:43 05:49 WBC RBC Hgb Hct MCV MCH RDW Plt Count Lymph % (Auto) [place] # (Auto) Seg Neutrophils % Seg Neuts % (Manual) Lymphocytes % (Manual) Monocytes % (Manual) Seg Neutrophils # Seg Neutrophils # Man Lymphocytes # (Manual) Monocytes # (Manual) Eosinophils # (Manual) PT INR D-Dimer ABG pH POC ABG pCO2 POC ABG pO2 ABG pO2 ABG HCO3 ABG O2 Saturation ABG Base Excess ABG Hemoglobin ABG Oxyhemoglobin ABG Potassium ABG Glucose Oxyhemoglobin Carboxyhemoglobin Sodium Potassium Chloride Carbon Dioxide BUN Creatinine Glucose POC Glucose 157 H 134 H 163 H Calcium Ferritin Total Bilirubin Alkaline Phosphatase Lactate Dehydrogenase Troponin T C-Reactive Protein Total Protein Albumin Prealbumin LDL Cholesterol Direct Arterial Blood Glucose Arterial Blood Ionized Calcium Urine WBC (Auto) 03/09/20 03/09/20 03/09/20 08:35 08:35 12:11 WBC 23.4 H RBC 3.36 L Hgb 9.3 L Hct 28.8 L MCV MCH RDW 15.9 H Plt Count 521 H Lymph % (Auto) [place] # (Auto) Seg Neutrophils % Seg Neuts % (Manual) 87.0 H Lymphocytes % (Manual) 4.0 L Monocytes % (Manual) 9.0 H Seg Neutrophils # Seg Neutrophils # Man 20.4 H Lymphocytes # (Manual) 0.9 L Monocytes # (Manual) 2.1 H Eosinophils # (Manual) PT INR D-Dimer ABG pH POC ABG pCO2 POC ABG pO2 ABG pO2 ABG HCO3 ABG O2 Saturation ABG Base Excess ABG Hemoglobin ABG Oxyhemoglobin ABG Potassium ABG Glucose Oxyhemoglobin Carboxyhemoglobin Sodium 147 H Potassium Chloride Carbon Dioxide 37 H BUN 63 H Creatinine Glucose 154 H POC Glucose 128 H Calcium Ferritin Total Bilirubin Alkaline Phosphatase Lactate Dehydrogenase Troponin T C-Reactive Protein Total Protein Albumin Prealbumin LDL Cholesterol Direct Arterial Blood Glucose Arterial Blood Ionized Calcium Urine WBC (Auto) 03/09/20 03/10/20 03/10/20 17:51 00:25 05:41 WBC RBC Hgb Hct MCV MCH RDW Plt Count Lymph % (Auto) [place] # (Auto) Seg Neutrophils % Seg Neuts % (Manual) Lymphocytes % (Manual) Monocytes % (Manual) Seg Neutrophils # Seg Neutrophils # Man Lymphocytes # (Manual) Monocytes # (Manual) Eosinophils # (Manual) PT INR D-Dimer ABG pH POC ABG pCO2 POC ABG pO2 ABG pO2 ABG HCO3 ABG O2 Saturation ABG Base Excess ABG Hemoglobin ABG Oxyhemoglobin ABG Potassium ABG Glucose Oxyhemoglobin Carboxyhemoglobin Sodium Potassium Chloride Carbon Dioxide BUN Creatinine Glucose POC Glucose 127 H 128 H 153 H Calcium Ferritin Total Bilirubin Alkaline Phosphatase Lactate Dehydrogenase Troponin T C-Reactive Protein Total Protein Albumin Prealbumin LDL Cholesterol Direct Arterial Blood Glucose Arterial Blood Ionized Calcium Urine WBC (Auto) 03/10/20 03/10/20 03/10/20 06:14 06:14 12:02 WBC 18.3 H RBC 3.45 L Hgb 9.5 L Hct 29.5 L MCV MCH RDW 16.1 H Plt Count 494 H Lymph % (Auto) [place] # (Auto) Seg Neutrophils % Seg Neuts % (Manual) 95.0 H Lymphocytes % (Manual) 1.0 L Monocytes % (Manual) Seg Neutrophils # Seg Neutrophils # Man 17.4 H Lymphocytes # (Manual) 0.2 L Monocytes # (Manual) Eosinophils # (Manual) PT INR D-Dimer ABG pH POC ABG pCO2 POC ABG pO2 ABG pO2 ABG HCO3 ABG O2 Saturation ABG Base Excess ABG Hemoglobin ABG Oxyhemoglobin ABG Potassium ABG Glucose Oxyhemoglobin Carboxyhemoglobin Sodium 149 H Potassium Chloride Carbon Dioxide 35 H BUN 34 H Creatinine 0.2 L D Glucose 177 H POC Glucose 151 H Calcium Ferritin Total Bilirubin Alkaline Phosphatase Lactate Dehydrogenase Troponin T C-Reactive Protein Total Protein Albumin Prealbumin LDL Cholesterol Direct Arterial Blood Glucose Arterial Blood Ionized Calcium Urine WBC (Auto) 03/10/20 03/10/20 03/11/20 17:41 23:53 05:02 WBC RBC Hgb Hct MCV MCH RDW Plt Count Lymph % (Auto) [place] # (Auto) Seg Neutrophils % Seg Neuts % (Manual) Lymphocytes % (Manual) Monocytes % (Manual) Seg Neutrophils # Seg Neutrophils # Man Lymphocytes # (Manual) Monocytes # (Manual) Eosinophils # (Manual) PT INR D-Dimer ABG pH POC ABG pCO2 POC ABG pO2 ABG pO2 ABG HCO3 ABG O2 Saturation ABG Base Excess ABG Hemoglobin ABG Oxyhemoglobin ABG Potassium ABG Glucose Oxyhemoglobin Carboxyhemoglobin Sodium Potassium Chloride Carbon Dioxide BUN Creatinine Glucose POC Glucose 168 H 142 H 146 H Calcium Ferritin Total Bilirubin Alkaline Phosphatase Lactate Dehydrogenase Troponin T C-Reactive Protein Total Protein Albumin Prealbumin LDL Cholesterol Direct Arterial Blood Glucose Arterial Blood Ionized Calcium Urine WBC (Auto) 03/11/20 03/11/20 03/11/20 11:30 14:01 14:01 WBC 19.7 H RBC 3.04 L Hgb 8.7 L Hct 25.8 L MCV MCH RDW 15.6 H Plt Count Lymph % (Auto) [place] # (Auto) Seg Neutrophils % Seg Neuts % (Manual) Lymphocytes % (Manual) Monocytes % (Manual) Seg Neutrophils # Seg Neutrophils # Man Lymphocytes # (Manual) Monocytes # (Manual) Eosinophils # (Manual) PT INR D-Dimer ABG pH POC ABG pCO2 POC ABG pO2 ABG pO2 ABG HCO3 ABG O2 Saturation ABG Base Excess ABG Hemoglobin ABG Oxyhemoglobin ABG Potassium ABG Glucose Oxyhemoglobin Carboxyhemoglobin Sodium 151 H Potassium Chloride Carbon Dioxide 37 H BUN Creatinine < 0.2 L Glucose 171 H POC Glucose 248 H Calcium Ferritin Total Bilirubin Alkaline Phosphatase Lactate Dehydrogenase Troponin T C-Reactive Protein Total Protein Albumin Prealbumin LDL Cholesterol Direct Arterial Blood Glucose Arterial Blood Ionized Calcium Urine WBC (Auto) 03/11/20 03/11/20 03/12/20 17:09 23:52 04:39 WBC 19.9 H RBC 3.16 L Hgb 8.9 L Hct 27.5 L MCV MCH RDW 15.7 H Plt Count Lymph % (Auto) 6.8 L [place] # (Auto) 1.2 H Seg Neutrophils % 86.0 H Seg Neuts % (Manual) Lymphocytes % (Manual) Monocytes % (Manual) Seg Neutrophils # 17.1 H Seg Neutrophils # Man Lymphocytes # (Manual) Monocytes # (Manual) Eosinophils # (Manual) PT INR D-Dimer ABG pH POC ABG pCO2 POC ABG pO2 ABG pO2 ABG HCO3 ABG O2 Saturation ABG Base Excess ABG Hemoglobin ABG Oxyhemoglobin ABG Potassium ABG Glucose Oxyhemoglobin Carboxyhemoglobin Sodium Potassium Chloride Carbon Dioxide BUN Creatinine Glucose POC Glucose 124 H 131 H Calcium Ferritin Total Bilirubin Alkaline Phosphatase Lactate Dehydrogenase Troponin T C-Reactive Protein Total Protein Albumin Prealbumin LDL Cholesterol Direct Arterial Blood Glucose Arterial Blood Ionized Calcium Urine WBC (Auto) 03/12/20 03/12/20 03/12/20 04:39 05:28 11:34 WBC RBC Hgb Hct MCV MCH RDW Plt Count Lymph % (Auto) [place] # (Auto) Seg Neutrophils % Seg Neuts % (Manual) Lymphocytes % (Manual) Monocytes % (Manual) Seg Neutrophils # Seg Neutrophils # Man Lymphocytes # (Manual) Monocytes # (Manual) Eosinophils # (Manual) PT INR D-Dimer ABG pH POC ABG pCO2 POC ABG pO2 ABG pO2 ABG HCO3 ABG O2 Saturation ABG Base Excess ABG Hemoglobin ABG Oxyhemoglobin ABG Potassium ABG Glucose Oxyhemoglobin Carboxyhemoglobin Sodium 147 H Potassium Chloride Carbon Dioxide 40 H BUN Creatinine < 0.2 L Glucose 175 H POC Glucose 167 H 144 H Calcium Ferritin Total Bilirubin Alkaline Phosphatase Lactate Dehydrogenase Troponin T C-Reactive Protein Total Protein Albumin Prealbumin LDL Cholesterol Direct Arterial Blood Glucose Arterial Blood Ionized Calcium Urine WBC (Auto) 03/12/20 03/12/20 03/13/20 17:32 23:57 05:57 WBC RBC Hgb Hct MCV MCH RDW Plt Count Lymph % (Auto) [place] # (Auto) Seg Neutrophils % Seg Neuts % (Manual) Lymphocytes % (Manual) Monocytes % (Manual) Seg Neutrophils # Seg Neutrophils # Man Lymphocytes # (Manual) Monocytes # (Manual) Eosinophils # (Manual) PT INR D-Dimer ABG pH POC ABG pCO2 POC ABG pO2 ABG pO2 ABG HCO3 ABG O2 Saturation ABG Base Excess ABG Hemoglobin ABG Oxyhemoglobin ABG Potassium ABG Glucose Oxyhemoglobin Carboxyhemoglobin Sodium Potassium Chloride Carbon Dioxide BUN Creatinine Glucose POC Glucose 141 H 137 H 161 H Calcium Ferritin Total Bilirubin Alkaline Phosphatase Lactate Dehydrogenase Troponin T C-Reactive Protein Total Protein Albumin Prealbumin LDL Cholesterol Direct Arterial Blood Glucose Arterial Blood Ionized Calcium Urine WBC (Auto) 03/13/20 03/13/20 03/13/20 12:28 14:14 18:39 WBC RBC Hgb Hct MCV MCH RDW Plt Count Lymph % (Auto) [place] # (Auto) Seg Neutrophils % Seg Neuts % (Manual) Lymphocytes % (Manual) Monocytes % (Manual) Seg Neutrophils # Seg Neutrophils # Man Lymphocytes # (Manual) Monocytes # (Manual) Eosinophils # (Manual) PT INR D-Dimer ABG pH POC ABG pCO2 POC ABG pO2 ABG pO2 ABG HCO3 ABG O2 Saturation ABG Base Excess ABG Hemoglobin ABG Oxyhemoglobin ABG Potassium ABG Glucose Oxyhemoglobin Carboxyhemoglobin Sodium Potassium Chloride Carbon Dioxide 39 H BUN Creatinine < 0.2 L Glucose 129 H POC Glucose 130 H 125 H Calcium Ferritin Total Bilirubin Alkaline Phosphatase Lactate Dehydrogenase Troponin T C-Reactive Protein Total Protein Albumin Prealbumin LDL Cholesterol Direct Arterial Blood Glucose Arterial Blood Ionized Calcium Urine WBC (Auto) 03/13/20 03/14/20 03/14/20 23:33 05:24 08:07 WBC 16.8 H RBC 2.81 L Hgb 7.9 L Hct 23.9 L MCV MCH RDW 15.9 H Plt Count Lymph % (Auto) [place] # (Auto) Seg Neutrophils % Seg Neuts % (Manual) 84.0 H Lymphocytes % (Manual) 10.0 L Monocytes % (Manual) Seg Neutrophils # Seg Neutrophils # Man 14.1 H Lymphocytes # (Manual) Monocytes # (Manual) Eosinophils # (Manual) PT INR D-Dimer ABG pH POC ABG pCO2 POC ABG pO2 ABG pO2 ABG HCO3 ABG O2 Saturation ABG Base Excess ABG Hemoglobin ABG Oxyhemoglobin ABG Potassium ABG Glucose Oxyhemoglobin Carboxyhemoglobin Sodium Potassium Chloride Carbon Dioxide BUN Creatinine Glucose POC Glucose 146 H 125 H Calcium Ferritin Total Bilirubin Alkaline Phosphatase Lactate Dehydrogenase Troponin T C-Reactive Protein Total Protein Albumin Prealbumin LDL Cholesterol Direct Arterial Blood Glucose Arterial Blood Ionized Calcium Urine WBC (Auto) 03/14/20 03/14/20 03/14/20 08:07 12:21 18:26 WBC RBC Hgb Hct MCV MCH RDW Plt Count Lymph % (Auto) [place] # (Auto) Seg Neutrophils % Seg Neuts % (Manual) Lymphocytes % (Manual) Monocytes % (Manual) Seg Neutrophils # Seg Neutrophils # Man Lymphocytes # (Manual) Monocytes # (Manual) Eosinophils # (Manual) PT INR D-Dimer ABG pH POC ABG pCO2 POC ABG pO2 ABG pO2 ABG HCO3 ABG O2 Saturation ABG Base Excess ABG Hemoglobin ABG Oxyhemoglobin ABG Potassium ABG Glucose Oxyhemoglobin Carboxyhemoglobin Sodium Potassium Chloride 97.0 L Carbon Dioxide 37 H BUN Creatinine < 0.2 L Glucose 129 H POC Glucose 109 H 142 H Calcium 8.3 L Ferritin Total Bilirubin Alkaline Phosphatase Lactate Dehydrogenase Troponin T C-Reactive Protein Total Protein Albumin Prealbumin LDL Cholesterol Direct Arterial Blood Glucose Arterial Blood Ionized Calcium Urine WBC (Auto) 03/14/20 03/15/20 03/15/20 23:57 05:46 08:06 WBC 19.7 H RBC 3.29 L Hgb 9.1 L Hct 28.0 L MCV MCH RDW 15.9 H Plt Count Lymph % (Auto) [place] # (Auto) Seg Neutrophils % Seg Neuts % (Manual) Lymphocytes % (Manual) Monocytes % (Manual) Seg Neutrophils # Seg Neutrophils # Man Lymphocytes # (Manual) Monocytes # (Manual) Eosinophils # (Manual) PT INR D-Dimer ABG pH POC ABG pCO2 POC ABG pO2 ABG pO2 ABG HCO3 ABG O2 Saturation ABG Base Excess ABG Hemoglobin ABG Oxyhemoglobin ABG Potassium ABG Glucose Oxyhemoglobin Carboxyhemoglobin Sodium Potassium Chloride Carbon Dioxide BUN Creatinine Glucose POC Glucose 157 H 118 H Calcium Ferritin Total Bilirubin Alkaline Phosphatase Lactate Dehydrogenase Troponin T C-Reactive Protein Total Protein Albumin Prealbumin LDL Cholesterol Direct Arterial Blood Glucose Arterial Blood Ionized Calcium Urine WBC (Auto) 03/15/20 03/15/20 08:06 12:44 WBC RBC Hgb Hct MCV MCH RDW Plt Count Lymph % (Auto) [place] # (Auto) Seg Neutrophils % Seg Neuts % (Manual) Lymphocytes % (Manual) Monocytes % (Manual) Seg Neutrophils # Seg Neutrophils # Man Lymphocytes # (Manual) Monocytes # (Manual) Eosinophils # (Manual) PT INR D-Dimer ABG pH POC ABG pCO2 POC ABG pO2 ABG pO2 ABG HCO3 ABG O2 Saturation ABG Base Excess ABG Hemoglobin ABG Oxyhemoglobin ABG Potassium ABG Glucose Oxyhemoglobin Carboxyhemoglobin Sodium 136 L Potassium Chloride 93.6 L Carbon Dioxide 37 H BUN Creatinine < 0.2 L Glucose 132 H POC Glucose 151 H Calcium Ferritin Total Bilirubin Alkaline Phosphatase Lactate Dehydrogenase Troponin T C-Reactive Protein Total Protein Albumin Prealbumin LDL Cholesterol Direct Arterial Blood Glucose Arterial Blood Ionized Calcium Urine WBC (Auto) Chest x-ray: pending Allied health notes reviewed: nursing
--- NOTE | 2020-03-15 15:50 | Progress Note ---
Assessment and Plan --Acute hypoxic hypercapnic respiratory failure; Intubated on mechanical ventilation. Etiology secondary to sepsis, ALS, multifocal pneumonia (Covid negative). S/p trach placement 03/07/20 --Dysphagia, need PEG placement, now on NG Tf --ALS; Chronic Continue to provide supportive care --Elevated D-dimers; CTA chest, lower extremity venous Doppler both are negative Lovenox for DVT prophylaxis --Bilateral pneumonia; probably community-acquired Continue cefepime and vancomycin ID recommendations appreciated --Sepsis secondary to pneumonia Continue cefepime and vancomycin --Elevated troponin; Serial cardiac enzymes, serial EKGs Echocardiogram, cardiology consult if needed --Hypernatremia Trend sodium Free water via feeding tube --Abdominal distention due to bladder outlet obstruction, resolved CT abdomen showed bladder outlet obstruction, urology consulted s/p drake placement by urology on 03/09 --Hypotension possibly from septic shock and bladder outlet obstruction improved following placing drake --Hypernatremia due to hypovolumia free water with TF and place on 1/2NS --DVT prophylaxis; Lovenox The high probability of a clinically significant, sudden or life threatening deterioration of the [cardiac, renal and respiratory] system(s) required my full and direct attention, intervention and personal management. The aggregate critical care time was [34] minutes. 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 Patient was on a trilogy machine for breathing 18/11. EMS arrived, patient had O2 sats in the 80s. EMS attempted to place patient on their CPAP machine, however patient did not tolerate. Patient was admitted to the ICU with diagnosis of acute hypoxic respiratory failure and placed on BiPAP. Patient initially tolerated but later deteriorated with respiratory status. CTA chest showed no PE but significant for bilateral pneumonia. Doppler ultrasound also negative for DVT. COVID-19 test ordered. Due to persistent hypoxia, patient was intubated on 02/26/2020 at 1500. Patient now on mechanical ventilation in the ICU s/p trach placement today. Daily course: 02/26/2020. Blood cultures are negative x48 hours and Covid testing negative as well. Continue antibiotics per ID recommendations for community-acquired bilateral pneumonia. Cardiology consultation for elevated troponin. Check echocardiogram. 02/27/2020. Events of yesterday noted with asystole following V. fib arrest. Patient currently on AC mode rate 20, tidal volume 400, FiO2 50% and a PEEP of 6. Follow-up echocardiogram for elevated troponin. Cardiology suspects NSTEMI Type 2 in the setting of acute resp failure. Chest CTA and BLE Dopplers neg. we will discontinue Decadron given the Covid PCR is negative. 02/28/2020. Spoke with the sister Felisa Eli who is the power of disability attorney regarding advanced directives and she instructed me that she would like to continue with aggressive care at this time. I informed her of the guarded prognosis and high mortality/morbidity and she voiced understanding. Patient currently with AC mode ventilation rate 18, tidal volume 400, FiO2 40% and a PEEP of 6. Continue antibiotics for pneumonia. ID previously consulted. Also consult neurology with regards to ALS. 02/29/2020; patient is intubated and on CPAP patient is alert and oriented. Patient has ALS. Dr. Álvarez spoke with his sister and she wants aggressive care. Continue antibiotics for pneumonia. Neurology consulted for ALS. Prognosis poor 03/01/2020; patient is intubated and on CPAP, patient is alert and oriented. I spoke with his 2 sisters about the management plan. 03/02/2020; patient is intubated and on CPAP. Patient was alert and oriented. I spoke with Dr. mohr and he thinks patient may need mechanical ventilation, likely his disease progressed. Dr. Flowers did debridement this morning. 03/03/2020; patient is intubated and on CPAP, patient was on trilogy and BiPAP at home. Patient has ALS. on spontaneous breathing trial. Patient is alert and oriented but quadriplegic. Patient has severe bilateral pneumonia and is on cefepime and Vanco, ID is following. Patient has sacral decubitus ulcer and debridement was done by Dr. Flowers and there is no osteomyelitis. 03/05. Patient still on broad-spectrum antibiotics. Status post sacral decubitus ulcer debridements-no osteomyelitis. Patient is on AC 25/400/30% PEEP 5. No blood gas results today. 03/06. Plan for tracheostomy by surgery. Still remains intubated. Labs reviewed-sodium 150. Started on free water 200 every 8hr. trend sodium. 03/07: s/p trach placement today, patient placed back on mechanical ventilation with trach. Plan to resume tube feeding with NG tube. Continue to monitor vitals, monitor BMP. 03/08: Patient noted to have distended abdomen with low urinary output. Obtain bladder scan rule out urine retention, UA and urine culture, continue to follow clinically. 03/09: Patient noted to have low blood pressure with SBP as low as 70s. Ordered for 500 mils normal saline bolus. CT abdomen showed bladder outlet obstruction, urology consulted. 03/10: placed on drake by urology o/n, improved urine outpt. cont to monitor BMP. resuded TF - cont free water with TF. wean off from vent as tolerated. 03/11: Vitals stable. cont TF, wean off from vent as tolerated. start on 1/2 NS for hypernatremia - follow BMP 03/12: wean off vent as tolerated, plan for speech eval, cont Tf for now, cont iv fluid 03/13: unable to wean off from vent, unable to do speech therapy eval. will need PEG tube, cont supportive care for now, cont NG tube feeding 03/14: consulted GI for PEg placemnet, cont supportive care. remains on vent at night 03/15: Discussed with GI, plan for PEG tube placement possibly tomorrow. Continue supportive care and wean off from vent as tolerated. Hold Lovenox dose tonight. Subjective Date of service: 03/15/20 Principal diagnosis: Ac on Ch Hypercapnic & hypoxemic Resp Failure; Severe Sepsis; Jamar PNA; ALS Interval history: Patient seen and examined Remains on mechanical ventilation with trach tube Discussed with RN at the bedside Vitals reviewed -BP stable Patient agrees for PEG tube placement Objective - Exam Narrative Exam: GENERAL: Awake. Intubated with trach tube HEAD: No signs of head trauma. EYES: Pupils are equal. Extraocular motions intact. EARS: Hearing grossly intact. MOUTH: Oropharynx is normal. NECK: No adenopathy, no JVD. CHEST: Coarse breath sounds bilaterally CARDIAC: Regular rate and rhythm. S1 and S2, without murmurs, gallops, or rubs. VASCULAR: No Edema. Peripheral pulses normal and equal in all extremities. ABDOMEN: Soft, non tender and nondistended. Bowel Sounds normal. NEUROLOGIC EXAM: Awake, paraplegic SKIN: No obvious lesions - Constitutional Vitals: Vital Signs - 12hr 03/15/20 03/15/20 03/15/20 04:00 04:16 04:30 Temperature 99.3 F Pulse Rate 114 H 110 H 109 H Pulse Rate [ 120 H From Monitor] Respiratory 16 19 19 Rate Blood Pressure 118/89 118/89 114/81 O2 Sat by Pulse 97 97 97 Oximetry 03/15/20 03/15/20 03/15/20 04:46 05:00 05:03 Temperature Pulse Rate 106 H 109 H 104 H Pulse Rate [ From Monitor] Respiratory 17 17 Rate Blood Pressure 114/81 121/88 121/88 O2 Sat by Pulse 98 98 98 Oximetry 03/15/20 03/15/20 03/15/20 05:16 05:30 05:46 Temperature Pulse Rate 102 H 100 H 108 H Pulse Rate [ From Monitor] Respiratory 12 13 24 Rate Blood Pressure 121/88 128/91 128/91 O2 Sat by Pulse 97 97 98 Oximetry 03/15/20 03/15/20 03/15/20 06:00 06:16 06:30 Temperature Pulse Rate 105 H 102 H 105 H Pulse Rate [ From Monitor] Respiratory 15 13 15 Rate Blood Pressure 128/91 128/91 123/85 O2 Sat by Pulse 98 98 96 Oximetry 03/15/20 03/15/20 03/15/20 06:46 07:00 07:16 Temperature Pulse Rate 102 H 102 H 102 H Pulse Rate [ From Monitor] Respiratory 21 17 18 Rate Blood Pressure 123/85 118/86 118/86 O2 Sat by Pulse 97 97 97 Oximetry 03/15/20 03/15/20 03/15/20 07:30 07:46 08:00 Temperature 99.1 F Pulse Rate 107 H 106 H 105 H Pulse Rate [ 105 H From Monitor] Respiratory 15 27 H 28 H Rate Blood Pressure 120/86 120/86 126/89 O2 Sat by Pulse 97 98 98 Oximetry 03/15/20 03/15/20 03/15/20 08:08 08:16 08:26 Temperature Pulse Rate 105 H 100 H Pulse Rate [ From Monitor] Respiratory 28 H 19 27 H Rate Blood Pressure 126/89 126/89 O2 Sat by Pulse 98 98 Oximetry 03/15/20 03/15/20 03/15/20 08:30 08:46 08:56 Temperature Pulse Rate 100 H 101 H Pulse Rate [ From Monitor] Respiratory 29 H 16 21 Rate Blood Pressure 131/92 131/92 O2 Sat by Pulse 98 97 Oximetry 03/15/20 03/15/20 03/15/20 09:00 09:16 09:25 Temperature Pulse Rate 98 H 101 H 105 H Pulse Rate [ From Monitor] Respiratory 25 H 30 H Rate Blood Pressure 149/96 149/96 149/96 O2 Sat by Pulse 97 98 Oximetry 03/15/20 03/15/20 03/15/20 09:30 09:46 10:00 Temperature Pulse Rate 100 H 101 H 97 H Pulse Rate [ From Monitor] Respiratory 25 H 20 30 H Rate Blood Pressure 152/97 152/97 136/95 O2 Sat by Pulse 96 97 97 Oximetry 03/15/20 03/15/20 03/15/20 10:16 10:30 10:46 Temperature Pulse Rate 102 H 97 H 102 H Pulse Rate [ From Monitor] Respiratory 25 H 31 H 24 Rate Blood Pressure 136/95 139/98 139/98 O2 Sat by Pulse 97 96 97 Oximetry 03/15/20 03/15/20 03/15/20 11:00 11:16 11:30 Temperature Pulse Rate 99 H 96 H 98 H Pulse Rate [ From Monitor] Respiratory 32 H 22 34 H Rate Blood Pressure 147/99 147/99 141/92 O2 Sat by Pulse 96 98 98 Oximetry 03/15/20 03/15/20 03/15/20 11:40 11:46 12:00 Temperature 98.5 F Pulse Rate 96 H 95 H 97 H Pulse Rate [ 97 H From Monitor] Respiratory 22 25 H 29 H Rate Blood Pressure 147/99 141/92 136/92 O2 Sat by Pulse 98 97 97 Oximetry 03/15/20 03/15/20 03/15/20 12:16 12:30 12:46 Temperature Pulse Rate 104 H 99 H 104 H Pulse Rate [ From Monitor] Respiratory 27 H 24 30 H Rate Blood Pressure 136/92 126/87 126/87 O2 Sat by Pulse 98 97 97 Oximetry 03/15/20 03/15/20 03/15/20 13:00 13:16 13:30 Temperature Pulse Rate 98 H 105 H 109 H Pulse Rate [ From Monitor] Respiratory 23 27 H 26 H Rate Blood Pressure 136/88 136/88 143/101 O2 Sat by Pulse 97 97 97 Oximetry 03/15/20 03/15/20 03/15/20 13:39 13:46 14:00 Temperature Pulse Rate 105 H 99 H Pulse Rate [ From Monitor] Respiratory 28 H 26 H 27 H Rate Blood Pressure 143/101 143/95 O2 Sat by Pulse 97 97 Oximetry 03/15/20 03/15/20 14:16 15:16 Temperature Pulse Rate 108 H 108 H Pulse Rate [ From Monitor] Respiratory 17 30 H Rate Blood Pressure 143/95 143/95 O2 Sat by Pulse 97 97 Oximetry - Labs CBC & Chem 7: 03/19/20 08:05 03/19/20 08:05 Labs: Abnormal lab results 03/14/20 03/14/20 03/15/20 Range/Units 18:26 23:57 05:46 WBC (4.5-11.0) K/mm3 RBC (3.65-5.03) M/mm3 Hgb (11.8-15.2) gm/dl Hct (35.5-45.6) % RDW (13.2-15.2) % Sodium (137-145) mmol/L Chloride (98-107) mmol/L Carbon Dioxide (22-30) mmol/L Creatinine (0.8-1.3) mg/dL Glucose (75-100) mg/dL POC Glucose 142 H 157 H 118 H (70-105) mg/dL 03/15/20 03/15/20 03/15/20 Range/Units 08:06 08:06 12:44 WBC 19.7 H (4.5-11.0) K/mm3 RBC 3.29 L (3.65-5.03) M/mm3 Hgb 9.1 L (11.8-15.2) gm/dl Hct 28.0 L (35.5-45.6) % RDW 15.9 H (13.2-15.2) % Sodium 136 L (137-145) mmol/L Chloride 93.6 L (98-107) mmol/L Carbon Dioxide 37 H (22-30) mmol/L Creatinine < 0.2 L (0.8-1.3) mg/dL Glucose 132 H (75-100) mg/dL POC Glucose 151 H (70-105) mg/dL HEART Score - HEART Score Troponin: Troponin T 0.034 ng/mL (0.00-0.029) H D 02/24/20 19:35
--- NOTE | 2020-03-15 17:31 | Gastroenterology Consultation ---
History of Present Illness - Reason for Consult Consult date: 03/15/20 PEG placement Requesting physician: JIGNESH POOLE - History of Present Illness This is a 59 yo male with pmh of ALS admitted on 02/24/2020 for respiratory failure for bilateral pneumonia. Hospital course complicated respiratory failure, NSTEMI, s/p sacral wound debridement, s/p trach on 03/07 due to inability to wean off the vent. GI consulted for PEG tube placement. Patient has been dependent on vent. Currently on lovenox for ppx. Currently on tube feeds with NG tube. Spoke with the family, daughter on the phone. Unsure how much patient was able to take care of himself prior to admission or prior abdominal surgery hx. Medication list reviewed. Past History Past Medical History: other (ALS, chronic respiratory failure (on Trilogy)) Past Surgical History: No surgical history Social history: smoking (former), alcohol abuse (~ 2 drinks/day) Family history: denies: no significant family history Medications and Allergies Allergies Allergy/AdvReac Type Severity Reaction Status Date / Time buprenorphine [From Butrans] Allergy Unknown Verified 02/24/20 08:37 fentanyl Allergy Unknown Verified 02/24/20 08:37 oxycodone [From OxyContin] Allergy Unknown Verified 02/24/20 08:37 Home Medications Medication Instructions Recorded Confirmed Last Taken Type Baclofen 10 mg PO BID 02/24/20 02/24/20 Unknown History Doxazosin 4 mg PO BID 02/24/20 02/24/20 Unknown History Etodolac ER 500 mg PO BID 02/24/20 02/24/20 Unknown History Lyrica 150 mg PO BID 02/24/20 02/24/20 Unknown History Valium 5 mg PO DAILY 02/24/20 02/24/20 Unknown History Active Meds: Active Medications Acetaminophen (Tylenol) 650 mg PO Q4H PRN PRN Reason: Pain, Mild (1-3) Last Admin: 03/08/20 00:10 Dose: 650 mg Documented by: Albuterol (Proventil) 2.5 mg IH Q4HRT PRN PRN Reason: Shortness Of Breath Lipase/Protease/Amylase (Pretty Rubio 10,500 Unit) 1 each FEEDTUBE PRN PRN PRN Reason: For Clogged Feeding Tube Bisacodyl (Dulcolax) 10 mg PA QDAY PRN PRN Reason: Bowel Movement Docusate Sodium (Colace) 100 mg PO BID [facility] Last Admin: 03/15/20 09:24 Dose: 100 mg Documented by: Enoxaparin Sodium (Enoxaparin) 40 mg SUB-Q QDAY@2200 [facility]; Protocol Last Admin: 03/14/20 21:57 Dose: 40 mg Documented by: Glycopyrrolate (Glycopyrrolate) 2 mg PO TID [facility] Last Admin: 03/15/20 13:41 Dose: 2 mg Documented by: Lansoprazole (Prevacid Solutab) 30 mg FEEDTUBE QDAY [facility] Last Admin: 03/15/20 09:25 Dose: 30 mg Documented by: Metoprolol Tartrate (Metoprolol) 12.5 mg PO BID [facility] Last Admin: 03/15/20 09:25 Dose: 12.5 mg Documented by: Morphine Sulfate (Morphine) 2 mg IV Q4H PRN PRN Reason: Pain, Moderate (4-6) Last Admin: 03/15/20 13:39 Dose: 2 mg Documented by: Polyethylene Glycol (Miralax [id number]) 17 gm PO QHS [facility] Last Admin: 03/14/20 21:58 Dose: 17 gm Documented by: Scopolamine (Transderm-Scop) 1 each TD Q3D [facility] Last Admin: 03/15/20 09:24 Dose: 1 each Documented by: Simple Syrup (Simple Syrup) 15 ml FEEDTUBE PRN PRN PRN Reason: Hypoglycemia Simple Syrup (Simple Syrup) 30 ml FEEDTUBE PRN PRN PRN Reason: Hypoglycemia Sodium Bicarbonate (Sodium Bicarbonate) 325 mg FEEDTUBE PRN PRN PRN Reason: For Clogged Feeding Tube Tamsulosin HCl (Flomax) 0.4 mg PO QDAY [facility] Last Admin: 03/15/20 09:25 Dose: 0.4 mg Documented by: Review of Systems - Review of Systems ROS unobtainable: due to endotracheal tube, due to mental status Exam - Constitutional Vital Signs: Temp Pulse Resp BP Pulse Ox 99.1 F 107 H 31 H 151/98 96 03/15/20 16:00 03/15/20 17:00 03/15/20 17:00 03/15/20 17:00 03/15/20 17:00 General appearance: no acute distress - EENT Eyes: EOM intact ENT: hearing intact - Respiratory Respiratory effort: normal, other (on vent with trach) - Cardiovascular Rhythm: regular Heart Sounds: Present: S1 & S2 - Gastrointestinal General gastrointestinal: Present: soft, non-tender, non-distended, normal bowel sounds - Integumentary Integumentary: Present: clear, warm - Labs CBC & Chem 7: 03/15/20 08:06 03/15/20 08:06 Lab Results: Laboratory Results - last 24 hr 03/14/20 03/14/20 03/15/20 18:26 23:57 05:46 WBC RBC Hgb Hct MCV MCH MCHC RDW Plt Count Sodium Potassium Chloride Carbon Dioxide Anion Gap BUN Creatinine Estimated GFR BUN/Creatinine Ratio Glucose POC Glucose 142 H 157 H 118 H Calcium 03/15/20 03/15/20 03/15/20 08:06 08:06 12:44 WBC 19.7 H RBC 3.29 L Hgb 9.1 L Hct 28.0 L MCV 85 MCH 28 MCHC 32 RDW 15.9 H Plt Count 433 Sodium 136 L Potassium 4.2 Chloride 93.6 L Carbon Dioxide 37 H Anion Gap 10 BUN 14 Creatinine < 0.2 L Estimated GFR > 60 BUN/Creatinine Ratio 70 Glucose 132 H POC Glucose 151 H Calcium 8.7 - Imaging CT Scan: report reviewed Assessment and Plan a 59 yo male with pmh of ALS admitted on 02/24/2020 for respiratory failure for bilateral pneumonia. Hospital course complicated respiratory failure, NSTEMI, s/p sacral wound debridement, s/p trach on 03/07 due to inability to wean off the vent. GI consulted for PEG tube placement. # Dysphagia # ALS # Respiratory failure - currently vent dependent with trach (placed on 03/07/2020) with b/l pneumonia and underlying condition of ALS. - currently on NG tube with tube feeds. - spoke with daughter on the phone. Unclear how active patient was prior to admission including ability to feed himself or swallow. Daughter to speak with rest of the family to decide on PEG tube placement. Discussed the nature of the procedure including risks of potential complications including bleeding, infection, and anesthesia complication. - will follow.
[2020-03-15] MEDS: POLYETHYLENE GLYCOL 3350 17 GM POWDER PO SCH (21:30)
[2020-03-15] MEDS: ENOXAPARIN 40 MG/0.4 ML INJ SUB-Q SCH (21:31)
[2020-03-16] MEDS: SCOPOLAMINE TRANSDERMAL PATCH 72 HR TD SCH (10:00)
[2020-03-16] MEDS: GLYCOPYRROLATE 2 MG TAB PO SCH ×3 (10:36→23:09)
[2020-03-16] MEDS: TAMSULOSIN 0.4 MG CAP PO SCH (10:36)
[2020-03-16] MEDS: DOCUSATE SODIUM 100 MG/10 ML ORAL LIQD PO SCH ×2 (10:36→23:08)
[2020-03-16] MEDS: LANSOPRAZOLE 30 MG SOLUTAB FEEDTUBE SCH (10:37)
[2020-03-16] MEDS: METOPROLOL TARTRATE 25 MG TAB PO SCH ×2 (10:37→23:08)
--- NOTE | 2020-03-16 11:41 | Progress Note ---
Assessment and Plan Cultures: Blood culture no growth today SARS CoV2 PCR negative Sputum culture 03/03/2020 Stenotrophomonas Blood culture 03/03/2020 no growth today Blood culture 03/07/2020 no growth today Urine culture 03/08/2020 Izzy albicans Assessment: 59 years old male with history of ALS with chronic respiratory failure on home BiPAP, admitted on 02/24/2020 due to worsening shortness of breath for 24 hours: #Severe sepsis: likely due to bilateral pneumonia +/- left gluteal necrotic pressure ulcer. Fever resolved, leukocytosis fluctuating. #Severe bilateral pneumonia: Likely community-acquired pneumonia. Procalcitonin elevated-1.13. CTA shows no PE but multifocal pneumonia with predominance left lower lobe. No DVT on US. Elevated D-dimer -1311. SARS-CoV-2 PCR negative. Sputum culture +Stenotrophomonas. CRP 26-->4. Prcal 1.1-->1.6. Repeat CXR near complete atelectasis resolved. Completed cefepime and vancomycin on 03/06/2020. Completed levofloxacin for 7 days on 03/12/2020. #Left gluteal necrotic pressure ulcer: S/p debridement, not infected per wound care. #Acute on chronic mixed respiratory failure: now on vent via trach. #ALS #Urinary retention: CT showed markedly distended bladder. Evaluated by urology, Reardon was placed. Recommendations: -Monitor fever and leukocytosis -Continue off antibiotics Blanca Cueva MD, FACP [facility] O: [phone] F: [phone] Subjective Date of service: 03/16/20 Principal diagnosis: Ac on Ch Hypercapnic & hypoxemic Resp Failure; Severe Sepsis; Jamar PNA; ALS Interval history: Awake, no fever. Remains on the vent via trach. Planned for possible PEG. Objective - Exam Narrative Exam: Physical Exam: Constitutional: Awake, on the vent Head, Ears, Nose: Normocephalic, atraumatic. External ears, nose normal Eyes: Conjunctivae/corneas clear. No icterus. No ptosis. Neck: trach + Cardiovascular: S1, S2 + Respiratory: AE fair bilaterally and equal GI: Soft, bowel sounds + Musculoskeletal: No pedal edema, no cyanosis. Skin: No rash or abscess. Left buttock decubitus ulcer with dressing. Hem/Lymphatic: No palpable cervical or supraclavicular nodes. No lymphangitis Psych: no agitation Neurological: Awake, on the vent, exam limited. - Constitutional Vitals: Vital Signs Temp Pulse Resp BP Pulse Ox 99.3 F 92 H 24 115/78 96 03/16/20 08:00 03/16/20 11:15 03/16/20 11:15 03/16/20 11:15 03/16/20 11:15 Temperature -Last 24 Hours Temperature 99.3 F Temperature 99.0 F Temperature 99.3 F Temperature 98.0 F Temperature 99.1 F Temperature 98.5 F - Labs CBC & Chem 7: 03/15/20 08:06 03/15/20 08:06 Labs: Abnormal lab results 03/15/20 03/15/20 03/15/20 Range/Units 12:44 18:09 23:26 POC Glucose 151 H 164 H 136 H (70-105) mg/dL 03/16/20 Range/Units 05:39 POC Glucose 116 H (70-105) mg/dL
--- NOTE | 2020-03-16 14:09 | Progress Note ---
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 Respiratory Failure Severe Sepsis with Shock Bilateral Pneumonia (Possible aspiration) History of ALS on Trilogy Oropharyngeal Dysphagia PUI-COVID Acute toxic metabolic encephalopathy Elevated D-dimer Elevated troponin possibly type 2 ischemia - for PEG placement once consent obtained - will continue daily SBT's as tolerated - continue care as below otherwise; - continue daytime t-piece trials as tolerated (PSV if fails) - repeat CXR prn +/- broncoscopy for mucus plugging / large volume atelectasis - continue to rest on AC qhs - LTAC evaluation is appropriate - continue Robinul & scopolamine for secretion control - prn electrolytes and optimize K+ & Mg 2+ for best respiratory muscle function - wound care per RN/WCN - continue Scopolamine patch for secretion control - wean supplemental oxygen for target O2 sat's > 92% acutely - bronchodilators with pulmonary hygiene per RT - VAP bundle addressed - continue lung protective strategies - continue bronchodilators with pulmonary hygiene per RT - wean per pulmonary driven protocols otherwise - sedation prn for target RASS 0 to -1 - s/p empiric antiinfectives per ID rec's (Rocephin and Zithromax) - COVID-19 isolation (Airborne & Contact) - empiric Dexamethasone - follow COVID-19 test results (negative) - trend inflammatory markers to aid clinical decision making - enteral nutrition at goal rate as tolerated - Aspiration precautions - accuchecks with glycemic control per SSI (While critically ill target blood glucose of 140-180 mg/dL; avoid hypoglycemia) - avoid nephrotoxins, renally dose all medications - avoid benzodiazepine's, reduce the possibility of delirium - prn analgesia per CPOT score - Maintenance of sleep-wake cycle, avoid delirium - aspiration precautions - G.I. & VTE prophylaxis - PT/OT/ROM exercises - mobility protocols for pressure ulcer prophylaxis - Monitor hemodynamics closely - continue other care per attending / other consultants - discharge planning ongoing concurrently .... Re-evaluate in am & prn CONDITION: CRITICAL PROGNOSIS: GUARDED CODE STATUS: FULL CODE The high probability of a clinically significant, sudden or life-threatening deterioration of the [respiratory, cardiovascular & neurologic] system(s) required my full and direct attention, intervention and personal management. The aggregate critical care time was [31] minutes without overlap. Time includes spent on; [x] Data Review and interpretation [x] Patient assessment and monitoring of vital signs [x] Documentation [x] Medication orders and management Subjective Date of service: 03/16/20 Principal diagnosis: Ac on Ch Hypercapnic & hypoxemic Resp Failure; Severe Sepsis; Jamar PNA; ALS Interval history: Patient is seen today for: Acute on Chronic Hypercapnic & hypoxemic Respiratory Failure; Severe Sepsis with Shock; Bilateral Pneumonia (Possible aspiration); History of ALS on Trilogy; PUI-COVID; Acute toxic metabolic encephalopathy Seen and examined at bedside; 24hour events reviewed; nursing and respiratory care staff consulted; no adverse overnight events reported to me; resting in bed; remains on MVS; GI evaluation ongoing for PEG placement; no N/V/F/C; still weaning tenuously Objective Vital Signs - 12hr 03/16/20 03/16/20 03/16/20 02:16 02:30 02:46 Temperature Pulse Rate 113 H 105 H 102 H Pulse Rate [ From Monitor] Respiratory 11 L 13 13 Rate Blood Pressure 89/63 102/70 102/70 O2 Sat by Pulse 97 98 96 Oximetry O2 Sat by Pulse Oximetry [ Assessment] 03/16/20 03/16/20 03/16/20 03:00 03:16 03:30 Temperature Pulse Rate 103 H 112 H 116 H Pulse Rate [ From Monitor] Respiratory 15 20 20 Rate Blood Pressure 97/68 97/68 97/70 O2 Sat by Pulse 98 99 98 Oximetry O2 Sat by Pulse Oximetry [ Assessment] 03/16/20 03/16/20 03/16/20 03:46 04:00 04:13 Temperature 99.0 F Pulse Rate 117 H 118 H 115 H Pulse Rate [ 112 H From Monitor] Respiratory 20 20 Rate Blood Pressure 97/70 91/64 91/64 O2 Sat by Pulse 98 98 97 Oximetry O2 Sat by Pulse 97 Oximetry [ Assessment] 03/16/20 03/16/20 03/16/20 04:16 04:27 04:30 Temperature Pulse Rate 114 H 111 H 108 H Pulse Rate [ From Monitor] Respiratory 20 17 Rate Blood Pressure 91/64 110/79 O2 Sat by Pulse 97 97 Oximetry O2 Sat by Pulse Oximetry [ Assessment] 03/16/20 03/16/20 03/16/20 04:46 05:00 05:16 Temperature Pulse Rate 114 H 107 H 107 H Pulse Rate [ From Monitor] Respiratory 16 17 16 Rate Blood Pressure 91/64 102/77 110/79 O2 Sat by Pulse 98 99 99 Oximetry O2 Sat by Pulse Oximetry [ Assessment] 03/16/20 03/16/20 03/16/20 05:30 05:46 06:00 Temperature Pulse Rate 106 H 107 H 107 H Pulse Rate [ From Monitor] Respiratory 12 14 14 Rate Blood Pressure 109/81 102/77 99/71 O2 Sat by Pulse 98 98 96 Oximetry O2 Sat by Pulse Oximetry [ Assessment] 03/16/20 03/16/20 03/16/20 06:16 06:30 06:46 Temperature Pulse Rate 100 H 100 H 99 H Pulse Rate [ From Monitor] Respiratory 14 14 16 Rate Blood Pressure 95/68 106/69 106/69 O2 Sat by Pulse 94 94 95 Oximetry O2 Sat by Pulse Oximetry [ Assessment] 03/16/20 03/16/20 03/16/20 07:00 07:10 07:16 Temperature Pulse Rate 96 H 100 H 96 H Pulse Rate [ From Monitor] Respiratory 17 22 22 Rate Blood Pressure 112/77 95/68 112/77 O2 Sat by Pulse 96 94 98 Oximetry O2 Sat by Pulse Oximetry [ Assessment] 03/16/20 03/16/20 03/16/20 07:30 07:46 08:00 Temperature 99.3 F Pulse Rate 96 H 100 H 101 H Pulse Rate [ From Monitor] Respiratory 21 21 22 Rate Blood Pressure 104/72 104/72 112/79 O2 Sat by Pulse 95 97 97 Oximetry O2 Sat by Pulse Oximetry [ Assessment] 03/16/20 03/16/20 03/16/20 08:16 08:30 08:46 Temperature Pulse Rate 102 H 101 H 101 H Pulse Rate [ From Monitor] Respiratory 23 22 25 H Rate Blood Pressure 112/79 112/78 112/78 O2 Sat by Pulse 97 96 96 Oximetry O2 Sat by Pulse Oximetry [ Assessment] 03/16/20 03/16/20 03/16/20 09:00 09:16 09:30 Temperature Pulse Rate 102 H 104 H 100 H Pulse Rate [ From Monitor] Respiratory 27 H 24 18 Rate Blood Pressure 110/78 110/78 113/78 O2 Sat by Pulse 96 94 95 Oximetry O2 Sat by Pulse Oximetry [ Assessment] 03/16/20 03/16/20 03/16/20 09:46 10:00 10:16 Temperature Pulse Rate 112 H 103 H 101 H Pulse Rate [ From Monitor] Respiratory 24 20 23 Rate Blood Pressure 113/78 118/83 118/83 O2 Sat by Pulse 95 95 96 Oximetry O2 Sat by Pulse Oximetry [ Assessment] 03/16/20 03/16/20 03/16/20 10:30 10:46 11:00 Temperature Pulse Rate 99 H 99 H 92 H Pulse Rate [ From Monitor] Respiratory 19 29 H 21 Rate Blood Pressure 112/75 112/75 115/78 O2 Sat by Pulse 95 96 96 Oximetry O2 Sat by Pulse Oximetry [ Assessment] 03/16/20 03/16/20 03/16/20 11:15 11:16 11:30 Temperature Pulse Rate 92 H 89 94 H Pulse Rate [ From Monitor] Respiratory 24 19 23 Rate Blood Pressure 115/78 115/78 121/80 O2 Sat by Pulse 96 97 97 Oximetry O2 Sat by Pulse Oximetry [ Assessment] 03/16/20 03/16/20 03/16/20 11:46 11:57 12:00 Temperature 99.3 F Pulse Rate 91 H 95 H Pulse Rate [ From Monitor] Respiratory 20 19 Rate Blood Pressure 121/80 113/80 O2 Sat by Pulse 96 97 Oximetry O2 Sat by Pulse 98 Oximetry [ Assessment] 03/16/20 03/16/20 03/16/20 12:16 12:30 12:46 Temperature Pulse Rate 95 H 95 H 104 H Pulse Rate [ From Monitor] Respiratory 22 21 24 Rate Blood Pressure 113/80 116/79 116/79 O2 Sat by Pulse 95 97 96 Oximetry O2 Sat by Pulse Oximetry [ Assessment] 03/16/20 03/16/20 03/16/20 13:00 13:16 13:30 Temperature Pulse Rate 98 H 100 H 95 H Pulse Rate [ From Monitor] Respiratory 24 21 20 Rate Blood Pressure 111/76 111/76 119/78 O2 Sat by Pulse 96 96 97 Oximetry O2 Sat by Pulse Oximetry [ Assessment] 03/16/20 03/16/20 13:46 14:00 Temperature Pulse Rate 98 H 100 H Pulse Rate [ From Monitor] Respiratory 21 22 Rate Blood Pressure 119/78 122/83 O2 Sat by Pulse 96 96 Oximetry O2 Sat by Pulse Oximetry [ Assessment] Constitutional: no acute distress, other (thin middle aged male with normal respiratory effort at rest on MVS) Eyes: non-icteric ENT: oropharynx moist, other (S/P Tracheostomy) Neck: supple, no lymphadenopathy, no JVD Effort: mildly labored Ascultation: Bilateral: rhonchi (and referred upper airway sounds) Percussion: Bilateral: not dull Cardiovascular: regular rate and rhythm, other (S1,S2, no murmurs) Gastrointestinal: normoactive bowel sounds, soft, non-tender, non-distended, other (+ distended but non tender suprapubis) Integumentary: normal, decubitus ulcer (sacral / gluteal) Extremities: no cyanosis, no edema, pulses normal, other (atrophic looking limbs) Neurologic: pupils equal and round, other (motor strength in extremities 1-2/5) Psychiatric: depressed CBC and BMP: 03/15/20 08:06 03/15/20 08:06 ABG, PT/INR, D-dimer: ABG ABG pH 7.371 (7.320-7.450) 03/08/20 12:34 POC ABG pCO2 63.1 mmHg (32.0-48.0) H 03/08/20 12:34 ABG pCO2 60.1 mm Hg 03/06/20 04:34 POC ABG pO2 90.5 mmHg (83-108) 03/08/20 12:34 ABG pO2 88.6 mm Hg (80.0-90.0) 03/06/20 04:34 POC ABG HCO3 35.7 03/08/20 12:34 ABG O2 Saturation 97.0 % (95.0-99.0) 03/06/20 04:34 PT/INR, D-dimer PT 15.6 Sec. (12.2-14.9) H 02/24/20 09:19 INR 1.21 (0.87-1.13) H 02/24/20 09:19 D-Dimer 1311.96 ng/mlDDU (0-234) H 02/24/20 09:19 Abnormal lab findings: Abnormal Labs 02/24/20 02/24/20 02/24/20 09:19 09:19 09:19 WBC 20.2 H RBC 5.05 H Hgb Hct MCV MCH RDW 15.3 H Plt Count Lymph % (Auto) Lynn # (Auto) Seg Neutrophils % Seg Neuts % (Manual) 86.0 H Lymphocytes % (Manual) 1.0 L Monocytes % (Manual) Seg Neutrophils # Seg Neutrophils # Man 17.4 H Lymphocytes # (Manual) 0.2 L Monocytes # (Manual) Eosinophils # (Manual) PT 15.6 H INR 1.21 H D-Dimer 1311.96 H ABG pH POC ABG pCO2 POC ABG pO2 ABG pO2 ABG HCO3 ABG O2 Saturation ABG Base Excess ABG Hemoglobin ABG Oxyhemoglobin ABG Potassium ABG Glucose Oxyhemoglobin Carboxyhemoglobin Sodium 135 L Potassium 3.2 L Chloride 92.2 L Carbon Dioxide BUN 6 L Creatinine < 0.2 L Glucose 124 H POC Glucose Calcium Ferritin Total Bilirubin 2.30 H Alkaline Phosphatase 132 H Lactate Dehydrogenase Troponin T 0.080 H C-Reactive Protein Total Protein Albumin 3.6 L Prealbumin LDL Cholesterol Direct 41 L Arterial Blood Glucose Arterial Blood Ionized Calcium Urine WBC (Auto) 02/24/20 02/24/20 02/24/20 09:19 09:58 10:01 WBC RBC Hgb Hct MCV MCH RDW Plt Count Lymph % (Auto) Lynn # (Auto) Seg Neutrophils % Seg Neuts % (Manual) Lymphocytes % (Manual) Monocytes % (Manual) Seg Neutrophils # Seg Neutrophils # Man Lymphocytes # (Manual) Monocytes # (Manual) Eosinophils # (Manual) PT INR D-Dimer ABG pH 7.176 L* POC ABG pCO2 POC ABG pO2 ABG pO2 91.2 H ABG HCO3 ABG O2 Saturation ABG Base Excess -4.6 L ABG Hemoglobin ABG Oxyhemoglobin ABG Potassium ABG Glucose Oxyhemoglobin 92.6 L Carboxyhemoglobin Sodium Potassium Chloride Carbon Dioxide BUN Creatinine Glucose POC Glucose Calcium Ferritin 1715.0 H Total Bilirubin Alkaline Phosphatase Lactate Dehydrogenase 303 H Troponin T C-Reactive Protein 26.10 H Total Protein Albumin Prealbumin LDL Cholesterol Direct Arterial Blood Glucose Arterial Blood Ionized Calcium Urine WBC (Auto) 02/24/20 02/24/20 02/24/20 11:52 13:45 19:35 WBC RBC Hgb Hct MCV MCH RDW Plt Count Lymph % (Auto) Lynn # (Auto) Seg Neutrophils % Seg Neuts % (Manual) Lymphocytes % (Manual) Monocytes % (Manual) Seg Neutrophils # Seg Neutrophils # Man Lymphocytes # (Manual) Monocytes # (Manual) Eosinophils # (Manual) PT INR D-Dimer ABG pH 7.051 L* 7.300 L POC ABG pCO2 POC ABG pO2 ABG pO2 94.7 H 75.1 L ABG HCO3 18.0 L ABG O2 Saturation 93.5 L ABG Base Excess -6.8 L -7.8 L ABG Hemoglobin 13.2 L 11.9 L ABG Oxyhemoglobin ABG Potassium ABG Glucose Oxyhemoglobin 91.0 L 92.7 L Carboxyhemoglobin Sodium Potassium Chloride Carbon Dioxide BUN Creatinine Glucose POC Glucose Calcium Ferritin Total Bilirubin Alkaline Phosphatase Lactate Dehydrogenase Troponin T 0.034 H D C-Reactive Protein Total Protein Albumin Prealbumin LDL Cholesterol Direct Arterial Blood Glucose Arterial Blood Ionized Calcium Urine WBC (Auto) 02/25/20 02/25/20 02/25/20 04:00 04:00 12:26 WBC 22.9 H RBC Hgb Hct MCV 83 L MCH 27 L RDW Plt Count 468 H Lymph % (Auto) Lynn # (Auto) Seg Neutrophils % Seg Neuts % (Manual) 89.0 H Lymphocytes % (Manual) 7.0 L Monocytes % (Manual) Seg Neutrophils # Seg Neutrophils # Man 20.4 H Lymphocytes # (Manual) Monocytes # (Manual) Eosinophils # (Manual) PT INR D-Dimer ABG pH POC ABG pCO2 POC ABG pO2 ABG pO2 ABG HCO3 ABG O2 Saturation ABG Base Excess ABG Hemoglobin ABG Oxyhemoglobin ABG Potassium 2.6 L ABG Glucose 142 H Oxyhemoglobin Carboxyhemoglobin Sodium Potassium 3.2 L Chloride Carbon Dioxide 18 L BUN Creatinine 0.2 L Glucose 114 H POC Glucose Calcium Ferritin Total Bilirubin Alkaline Phosphatase Lactate Dehydrogenase Troponin T C-Reactive Protein Total Protein Albumin 3.5 L Prealbumin LDL Cholesterol Direct Arterial Blood Glucose 142 H Arterial Blood Ionized Calcium Urine WBC (Auto) 02/26/20 02/26/20 02/26/20 15:58 17:00 23:43 WBC RBC Hgb Hct MCV MCH RDW Plt Count Lymph % (Auto) Lynn # (Auto) Seg Neutrophils % Seg Neuts % (Manual) Lymphocytes % (Manual) Monocytes % (Manual) Seg Neutrophils # Seg Neutrophils # Man Lymphocytes # (Manual) Monocytes # (Manual) Eosinophils # (Manual) PT INR D-Dimer ABG pH 7.502 H POC ABG pCO2 POC ABG pO2 213.6 H ABG pO2 ABG HCO3 ABG O2 Saturation ABG Base Excess ABG Hemoglobin ABG Oxyhemoglobin 99.2 H ABG Potassium 2.9 L ABG Glucose 160 H Oxyhemoglobin Carboxyhemoglobin 0.4 L Sodium Potassium Chloride Carbon Dioxide BUN Creatinine Glucose POC Glucose 189 H 120 H Calcium Ferritin Total Bilirubin Alkaline Phosphatase Lactate Dehydrogenase Troponin T C-Reactive Protein Total Protein Albumin Prealbumin LDL Cholesterol Direct Arterial Blood Glucose 160 H Arterial Blood Ionized Calcium 4.5 L Urine WBC (Auto) 02/27/20 02/27/20 02/27/20 05:00 07:04 17:45 WBC RBC Hgb Hct MCV MCH RDW Plt Count Lymph % (Auto) Lynn # (Auto) Seg Neutrophils % Seg Neuts % (Manual) Lymphocytes % (Manual) Monocytes % (Manual) Seg Neutrophils # Seg Neutrophils # Man Lymphocytes # (Manual) Monocytes # (Manual) Eosinophils # (Manual) PT INR D-Dimer ABG pH 7.524 H POC ABG pCO2 POC ABG pO2 ABG pO2 ABG HCO3 ABG O2 Saturation ABG Base Excess ABG Hemoglobin ABG Oxyhemoglobin ABG Potassium 3.0 L ABG Glucose 143 H Oxyhemoglobin Carboxyhemoglobin Sodium Potassium Chloride Carbon Dioxide BUN Creatinine Glucose POC Glucose 154 H 175 H Calcium Ferritin Total Bilirubin Alkaline Phosphatase Lactate Dehydrogenase Troponin T C-Reactive Protein Total Protein Albumin Prealbumin LDL Cholesterol Direct Arterial Blood Glucose 143 H Arterial Blood Ionized Calcium Urine WBC (Auto) 02/27/20 02/28/20 02/28/20 Unknown 00:21 04:15 WBC 18.7 H RBC Hgb Hct MCV MCH RDW Plt Count Lymph % (Auto) 8.7 L Lynn # (Auto) 1.2 H Seg Neutrophils % 84.6 H Seg Neuts % (Manual) Lymphocytes % (Manual) Monocytes % (Manual) Seg Neutrophils # 15.9 H Seg Neutrophils # Man Lymphocytes # (Manual) Monocytes # (Manual) Eosinophils # (Manual) PT INR D-Dimer ABG pH POC ABG pCO2 POC ABG pO2 ABG pO2 ABG HCO3 ABG O2 Saturation ABG Base Excess ABG Hemoglobin ABG Oxyhemoglobin ABG Potassium ABG Glucose Oxyhemoglobin Carboxyhemoglobin Sodium Potassium 2.9 L* Chloride Carbon Dioxide 33 H D BUN Creatinine < 0.2 L Glucose 157 H POC Glucose 134 H Calcium Ferritin Total Bilirubin Alkaline Phosphatase Lactate Dehydrogenase Troponin T C-Reactive Protein Total Protein Albumin Prealbumin LDL Cholesterol Direct Arterial Blood Glucose Arterial Blood Ionized Calcium Urine WBC (Auto) 02/28/20 02/28/20 02/28/20 04:15 05:16 05:39 WBC RBC Hgb Hct MCV MCH RDW Plt Count Lymph % (Auto) Lynn # (Auto) Seg Neutrophils % Seg Neuts % (Manual) Lymphocytes % (Manual) Monocytes % (Manual) Seg Neutrophils # Seg Neutrophils # Man Lymphocytes # (Manual) Monocytes # (Manual) Eosinophils # (Manual) PT INR D-Dimer ABG pH POC ABG pCO2 POC ABG pO2 ABG pO2 142.9 H ABG HCO3 34.1 H ABG O2 Saturation ABG Base Excess 8.3 H ABG Hemoglobin ABG Oxyhemoglobin ABG Potassium ABG Glucose Oxyhemoglobin Carboxyhemoglobin Sodium 151 H Potassium Chloride Carbon Dioxide 32 H BUN Creatinine 0.2 L Glucose 167 H POC Glucose 138 H Calcium Ferritin Total Bilirubin Alkaline Phosphatase Lactate Dehydrogenase Troponin T C-Reactive Protein Total Protein Albumin Prealbumin LDL Cholesterol Direct Arterial Blood Glucose Arterial Blood Ionized Calcium Urine WBC (Auto) 02/28/20 02/28/20 02/28/20 11:05 11:33 12:54 WBC RBC Hgb Hct MCV MCH RDW Plt Count Lymph % (Auto) Lynn # (Auto) Seg Neutrophils % Seg Neuts % (Manual) Lymphocytes % (Manual) Monocytes % (Manual) Seg Neutrophils # Seg Neutrophils # Man Lymphocytes # (Manual) Monocytes # (Manual) Eosinophils # (Manual) PT INR D-Dimer ABG pH POC ABG pCO2 POC ABG pO2 ABG pO2 ABG HCO3 ABG O2 Saturation ABG Base Excess ABG Hemoglobin ABG Oxyhemoglobin ABG Potassium ABG Glucose Oxyhemoglobin Carboxyhemoglobin Sodium Potassium Chloride Carbon Dioxide BUN Creatinine Glucose POC Glucose 160 H Calcium Ferritin Total Bilirubin Alkaline Phosphatase Lactate Dehydrogenase Troponin T C-Reactive Protein 4.70 H Total Protein Albumin Prealbumin 0.090 L LDL Cholesterol Direct Arterial Blood Glucose Arterial Blood Ionized Calcium Urine WBC (Auto) 02/28/20 02/29/20 02/29/20 17:34 00:44 04:05 WBC 19.6 H RBC Hgb Hct MCV MCH 27 L RDW 15.4 H Plt Count Lymph % (Auto) Lynn # (Auto) Seg Neutrophils % Seg Neuts % (Manual) 86.0 H Lymphocytes % (Manual) 7.0 L Monocytes % (Manual) Seg Neutrophils # Seg Neutrophils # Man 16.9 H Lymphocytes # (Manual) Monocytes # (Manual) 1.2 H Eosinophils # (Manual) PT INR D-Dimer ABG pH POC ABG pCO2 POC ABG pO2 ABG pO2 ABG HCO3 ABG O2 Saturation ABG Base Excess ABG Hemoglobin ABG Oxyhemoglobin ABG Potassium ABG Glucose Oxyhemoglobin Carboxyhemoglobin Sodium Potassium Chloride Carbon Dioxide BUN Creatinine Glucose POC Glucose 136 H 156 H Calcium Ferritin Total Bilirubin Alkaline Phosphatase Lactate Dehydrogenase Troponin T C-Reactive Protein Total Protein Albumin Prealbumin LDL Cholesterol Direct Arterial Blood Glucose Arterial Blood Ionized Calcium Urine WBC (Auto) 02/29/20 02/29/20 02/29/20 04:05 05:14 05:33 WBC RBC Hgb Hct MCV MCH RDW Plt Count Lymph % (Auto) Lynn # (Auto) Seg Neutrophils % Seg Neuts % (Manual) Lymphocytes % (Manual) Monocytes % (Manual) Seg Neutrophils # Seg Neutrophils # Man Lymphocytes # (Manual) Monocytes # (Manual) Eosinophils # (Manual) PT INR D-Dimer ABG pH POC ABG pCO2 54.3 H POC ABG pO2 124.8 H ABG pO2 ABG HCO3 ABG O2 Saturation ABG Base Excess ABG Hemoglobin ABG Oxyhemoglobin ABG Potassium ABG Glucose 185 H Oxyhemoglobin Carboxyhemoglobin Sodium 148 H Potassium Chloride Carbon Dioxide 33 H BUN Creatinine < 0.2 L Glucose 173 H POC Glucose 152 H Calcium Ferritin Total Bilirubin Alkaline Phosphatase Lactate Dehydrogenase Troponin T C-Reactive Protein Total Protein Albumin Prealbumin LDL Cholesterol Direct Arterial Blood Glucose 185 H Arterial Blood Ionized Calcium Urine WBC (Auto) 03/01/20 03/01/20 03/01/20 00:00 03:45 04:33 WBC 23.1 H RBC Hgb Hct MCV MCH 27 L RDW 15.3 H Plt Count Lymph % (Auto) Lynn # (Auto) Seg Neutrophils % Seg Neuts % (Manual) 92.0 H Lymphocytes % (Manual) 6.0 L Monocytes % (Manual) Seg Neutrophils # Seg Neutrophils # Man 21.3 H Lymphocytes # (Manual) Monocytes # (Manual) Eosinophils # (Manual) 0.5 H PT INR D-Dimer ABG pH 7.492 H POC ABG pCO2 POC ABG pO2 ABG pO2 157.1 H ABG HCO3 32.3 H ABG O2 Saturation ABG Base Excess 8.1 H ABG Hemoglobin 13.2 L ABG Oxyhemoglobin ABG Potassium ABG Glucose Oxyhemoglobin Carboxyhemoglobin Sodium Potassium Chloride Carbon Dioxide BUN Creatinine Glucose POC Glucose 109 H Calcium Ferritin Total Bilirubin Alkaline Phosphatase Lactate Dehydrogenase Troponin T C-Reactive Protein Total Protein Albumin Prealbumin LDL Cholesterol Direct Arterial Blood Glucose Arterial Blood Ionized Calcium Urine WBC (Auto) 03/01/20 03/01/20 03/01/20 04:33 05:29 12:32 WBC RBC Hgb Hct MCV MCH RDW Plt Count Lymph % (Auto) Lynn # (Auto) Seg Neutrophils % Seg Neuts % (Manual) Lymphocytes % (Manual) Monocytes % (Manual) Seg Neutrophils # Seg Neutrophils # Man Lymphocytes # (Manual) Monocytes # (Manual) Eosinophils # (Manual) PT INR D-Dimer ABG pH POC ABG pCO2 POC ABG pO2 ABG pO2 ABG HCO3 ABG O2 Saturation ABG Base Excess ABG Hemoglobin ABG Oxyhemoglobin ABG Potassium ABG Glucose Oxyhemoglobin Carboxyhemoglobin Sodium 146 H Potassium Chloride Carbon Dioxide 32 H BUN Creatinine < 0.2 L Glucose 120 H POC Glucose 120 H 128 H Calcium Ferritin Total Bilirubin Alkaline Phosphatase Lactate Dehydrogenase Troponin T C-Reactive Protein Total Protein Albumin Prealbumin LDL Cholesterol Direct Arterial Blood Glucose Arterial Blood Ionized Calcium Urine WBC (Auto) 03/01/20 03/01/20 03/02/20 17:38 23:46 06:13 WBC RBC Hgb Hct MCV MCH RDW Plt Count Lymph % (Auto) Lynn # (Auto) Seg Neutrophils % Seg Neuts % (Manual) Lymphocytes % (Manual) Monocytes % (Manual) Seg Neutrophils # Seg Neutrophils # Man Lymphocytes # (Manual) Monocytes # (Manual) Eosinophils # (Manual) PT INR D-Dimer ABG pH POC ABG pCO2 POC ABG pO2 ABG pO2 ABG HCO3 ABG O2 Saturation ABG Base Excess ABG Hemoglobin ABG Oxyhemoglobin ABG Potassium ABG Glucose Oxyhemoglobin Carboxyhemoglobin Sodium Potassium Chloride Carbon Dioxide BUN Creatinine Glucose POC Glucose 114 H 121 H 120 H Calcium Ferritin Total Bilirubin Alkaline Phosphatase Lactate Dehydrogenase Troponin T C-Reactive Protein Total Protein Albumin Prealbumin LDL Cholesterol Direct Arterial Blood Glucose Arterial Blood Ionized Calcium Urine WBC (Auto) 03/02/20 03/02/20 03/03/20 09:47 09:47 10:21 WBC 23.6 H RBC Hgb Hct MCV MCH RDW 15.3 H Plt Count 494 H Lymph % (Auto) Lynn # (Auto) Seg Neutrophils % Seg Neuts % (Manual) 85.0 H Lymphocytes % (Manual) 6.0 L Monocytes % (Manual) Seg Neutrophils # Seg Neutrophils # Man 20.1 H Lymphocytes # (Manual) Monocytes # (Manual) 1.7 H Eosinophils # (Manual) PT INR D-Dimer ABG pH POC ABG pCO2 POC ABG pO2 ABG pO2 ABG HCO3 ABG O2 Saturation ABG Base Excess ABG Hemoglobin ABG Oxyhemoglobin ABG Potassium 3.3 L ABG Glucose 158 H Oxyhemoglobin Carboxyhemoglobin Sodium Potassium Chloride Carbon Dioxide BUN Creatinine < 0.2 L Glucose 177 H POC Glucose Calcium Ferritin Total Bilirubin Alkaline Phosphatase Lactate Dehydrogenase Troponin T C-Reactive Protein Total Protein Albumin Prealbumin LDL Cholesterol Direct Arterial Blood Glucose 158 H Arterial Blood Ionized Calcium Urine WBC (Auto) 03/03/20 03/04/20 03/04/20 21:30 00:00 12:23 WBC RBC Hgb Hct MCV MCH RDW Plt Count Lymph % (Auto) Lynn # (Auto) Seg Neutrophils % Seg Neuts % (Manual) Lymphocytes % (Manual) Monocytes % (Manual) Seg Neutrophils # Seg Neutrophils # Man Lymphocytes # (Manual) Monocytes # (Manual) Eosinophils # (Manual) PT INR D-Dimer ABG pH 7.328 L POC ABG pCO2 POC ABG pO2 ABG pO2 68.4 L ABG HCO3 35.0 H ABG O2 Saturation 93.9 L ABG Base Excess 6.8 H ABG Hemoglobin 12.7 L ABG Oxyhemoglobin ABG Potassium ABG Glucose Oxyhemoglobin 91.9 L Carboxyhemoglobin Sodium Potassium Chloride Carbon Dioxide BUN Creatinine Glucose POC Glucose 187 H 163 H Calcium Ferritin Total Bilirubin Alkaline Phosphatase Lactate Dehydrogenase Troponin T C-Reactive Protein Total Protein Albumin Prealbumin LDL Cholesterol Direct Arterial Blood Glucose Arterial Blood Ionized Calcium Urine WBC (Auto) 03/04/20 03/04/20 03/05/20 18:15 21:30 06:02 WBC RBC Hgb Hct MCV MCH RDW Plt Count Lymph % (Auto) Lynn # (Auto) Seg Neutrophils % Seg Neuts % (Manual) Lymphocytes % (Manual) Monocytes % (Manual) Seg Neutrophils # Seg Neutrophils # Man Lymphocytes # (Manual) Monocytes # (Manual) Eosinophils # (Manual) PT INR D-Dimer ABG pH 7.297 L POC ABG pCO2 POC ABG pO2 ABG pO2 ABG HCO3 41.0 H ABG O2 Saturation ABG Base Excess 11.0 H ABG Hemoglobin 13.1 L ABG Oxyhemoglobin ABG Potassium ABG Glucose Oxyhemoglobin 94.5 L Carboxyhemoglobin Sodium Potassium Chloride Carbon Dioxide BUN Creatinine Glucose POC Glucose 192 H 127 H Calcium Ferritin Total Bilirubin Alkaline Phosphatase Lactate Dehydrogenase Troponin T C-Reactive Protein Total Protein Albumin Prealbumin LDL Cholesterol Direct Arterial Blood Glucose Arterial Blood Ionized Calcium Urine WBC (Auto) 03/05/20 03/05/20 03/06/20 12:09 16:42 00:24 WBC RBC Hgb Hct MCV MCH RDW Plt Count Lymph % (Auto) Lynn # (Auto) Seg Neutrophils % Seg Neuts % (Manual) Lymphocytes % (Manual) Monocytes % (Manual) Seg Neutrophils # Seg Neutrophils # Man Lymphocytes # (Manual) Monocytes # (Manual) Eosinophils # (Manual) PT INR D-Dimer ABG pH POC ABG pCO2 POC ABG pO2 ABG pO2 ABG HCO3 ABG O2 Saturation ABG Base Excess ABG Hemoglobin ABG Oxyhemoglobin ABG Potassium ABG Glucose Oxyhemoglobin Carboxyhemoglobin Sodium Potassium Chloride Carbon Dioxide BUN Creatinine Glucose POC Glucose 147 H 114 H 134 H Calcium Ferritin Total Bilirubin Alkaline Phosphatase Lactate Dehydrogenase Troponin T C-Reactive Protein Total Protein Albumin Prealbumin LDL Cholesterol Direct Arterial Blood Glucose Arterial Blood Ionized Calcium Urine WBC (Auto) 03/06/20 03/06/20 03/06/20 04:34 05:53 06:08 WBC 25.4 H RBC Hgb 10.5 L Hct 32.7 L MCV MCH 27 L RDW 15.3 H Plt Count 634 H Lymph % (Auto) [place] # (Auto) Seg Neutrophils % Seg Neuts % (Manual) 88.0 H Lymphocytes % (Manual) 2.0 L Monocytes % (Manual) 8.0 H Seg Neutrophils # Seg Neutrophils # Man 22.4 H Lymphocytes # (Manual) 0.5 L Monocytes # (Manual) 2.0 H Eosinophils # (Manual) PT INR D-Dimer ABG pH POC ABG pCO2 POC ABG pO2 ABG pO2 ABG HCO3 37.9 H ABG O2 Saturation ABG Base Excess 11.4 H ABG Hemoglobin 10.6 L ABG Oxyhemoglobin ABG Potassium ABG Glucose Oxyhemoglobin 94.7 L Carboxyhemoglobin Sodium Potassium Chloride Carbon Dioxide BUN Creatinine Glucose POC Glucose 135 H Calcium Ferritin Total Bilirubin Alkaline Phosphatase Lactate Dehydrogenase Troponin T C-Reactive Protein Total Protein Albumin Prealbumin LDL Cholesterol Direct Arterial Blood Glucose Arterial Blood Ionized Calcium Urine WBC (Auto) 03/06/20 03/06/20 03/06/20 06:08 12:19 19:10 WBC RBC Hgb Hct MCV MCH RDW Plt Count Lymph % (Auto) [place] # (Auto) Seg Neutrophils % Seg Neuts % (Manual) Lymphocytes % (Manual) Monocytes % (Manual) Seg Neutrophils # Seg Neutrophils # Man Lymphocytes # (Manual) Monocytes # (Manual) Eosinophils # (Manual) PT INR D-Dimer ABG pH POC ABG pCO2 POC ABG pO2 ABG pO2 ABG HCO3 ABG O2 Saturation ABG Base Excess ABG Hemoglobin ABG Oxyhemoglobin ABG Potassium ABG Glucose Oxyhemoglobin Carboxyhemoglobin Sodium 150 H D Potassium Chloride Carbon Dioxide 39 H D BUN 23 H Creatinine < 0.2 L Glucose 144 H POC Glucose 169 H 152 H Calcium Ferritin Total Bilirubin Alkaline Phosphatase Lactate Dehydrogenase Troponin T C-Reactive Protein Total Protein Albumin 3.3 L Prealbumin LDL Cholesterol Direct Arterial Blood Glucose Arterial Blood Ionized Calcium Urine WBC (Auto) 03/06/20 03/07/20 03/07/20 23:58 04:25 04:25 WBC 22.1 H RBC Hgb 10.9 L Hct 32.9 L MCV MCH RDW 15.5 H Plt Count 739 H Lymph % (Auto) 7.8 L [place] # (Auto) 1.3 H Seg Neutrophils % 85.5 H Seg Neuts % (Manual) Lymphocytes % (Manual) Monocytes % (Manual) Seg Neutrophils # 18.9 H Seg Neutrophils # Man Lymphocytes # (Manual) Monocytes # (Manual) Eosinophils # (Manual) PT INR D-Dimer ABG pH POC ABG pCO2 POC ABG pO2 ABG pO2 ABG HCO3 ABG O2 Saturation ABG Base Excess ABG Hemoglobin ABG Oxyhemoglobin ABG Potassium ABG Glucose Oxyhemoglobin Carboxyhemoglobin Sodium 146 H Potassium Chloride Carbon Dioxide 37 H BUN Creatinine < 0.2 L Glucose 118 H POC Glucose 111 H Calcium Ferritin Total Bilirubin Alkaline Phosphatase Lactate Dehydrogenase Troponin T C-Reactive Protein Total Protein Albumin 3.7 L Prealbumin LDL Cholesterol Direct Arterial Blood Glucose Arterial Blood Ionized Calcium Urine WBC (Auto) 03/07/20 03/07/20 03/07/20 05:20 17:45 23:32 WBC RBC Hgb Hct MCV MCH RDW Plt Count Lymph % (Auto) [place] # (Auto) Seg Neutrophils % Seg Neuts % (Manual) Lymphocytes % (Manual) Monocytes % (Manual) Seg Neutrophils # Seg Neutrophils # Man Lymphocytes # (Manual) Monocytes # (Manual) Eosinophils # (Manual) PT INR D-Dimer ABG pH POC ABG pCO2 POC ABG pO2 ABG pO2 ABG HCO3 ABG O2 Saturation ABG Base Excess ABG Hemoglobin ABG Oxyhemoglobin ABG Potassium ABG Glucose Oxyhemoglobin Carboxyhemoglobin Sodium Potassium Chloride Carbon Dioxide BUN Creatinine Glucose POC Glucose 113 H 124 H 210 H Calcium Ferritin Total Bilirubin Alkaline Phosphatase Lactate Dehydrogenase Troponin T C-Reactive Protein Total Protein Albumin Prealbumin LDL Cholesterol Direct Arterial Blood Glucose Arterial Blood Ionized Calcium Urine WBC (Auto) 03/08/20 03/08/20 03/08/20 05:35 06:43 06:43 WBC 28.9 H RBC 3.53 L Hgb 9.7 L Hct 30.3 L MCV MCH RDW 15.6 H Plt Count 578 H Lymph % (Auto) [place] # (Auto) Seg Neutrophils % Seg Neuts % (Manual) 93.0 H Lymphocytes % (Manual) 4.0 L Monocytes % (Manual) Seg Neutrophils # Seg Neutrophils # Man 26.9 H Lymphocytes # (Manual) Monocytes # (Manual) Eosinophils # (Manual) PT INR D-Dimer ABG pH POC ABG pCO2 POC ABG pO2 ABG pO2 ABG HCO3 ABG O2 Saturation ABG Base Excess ABG Hemoglobin ABG Oxyhemoglobin ABG Potassium ABG Glucose Oxyhemoglobin Carboxyhemoglobin Sodium 146 H Potassium Chloride Carbon Dioxide 35 H BUN 34 H Creatinine 0.3 L D Glucose 125 H POC Glucose 147 H Calcium Ferritin Total Bilirubin Alkaline Phosphatase Lactate Dehydrogenase Troponin T C-Reactive Protein Total Protein 5.9 L Albumin 3.2 L Prealbumin LDL Cholesterol Direct Arterial Blood Glucose Arterial Blood Ionized Calcium Urine WBC (Auto) 03/08/20 03/08/20 03/08/20 08:57 11:14 12:34 WBC RBC Hgb Hct MCV MCH RDW Plt Count Lymph % (Auto) [place] # (Auto) Seg Neutrophils % Seg Neuts % (Manual) Lymphocytes % (Manual) Monocytes % (Manual) Seg Neutrophils # Seg Neutrophils # Man Lymphocytes # (Manual) Monocytes # (Manual) Eosinophils # (Manual) PT INR D-Dimer ABG pH POC ABG pCO2 63.1 H POC ABG pO2 ABG pO2 ABG HCO3 ABG O2 Saturation ABG Base Excess ABG Hemoglobin 10.9 L ABG Oxyhemoglobin ABG Potassium ABG Glucose 176 H Oxyhemoglobin Carboxyhemoglobin Sodium Potassium Chloride Carbon Dioxide BUN Creatinine Glucose POC Glucose 171 H Calcium Ferritin Total Bilirubin Alkaline Phosphatase Lactate Dehydrogenase Troponin T C-Reactive Protein Total Protein Albumin Prealbumin LDL Cholesterol Direct Arterial Blood Glucose 176 H Arterial Blood Ionized Calcium 4.5 L Urine WBC (Auto) 10.0 H 03/08/20 03/08/20 03/09/20 18:02 23:43 05:49 WBC RBC Hgb Hct MCV MCH RDW Plt Count Lymph % (Auto) [place] # (Auto) Seg Neutrophils % Seg Neuts % (Manual) Lymphocytes % (Manual) Monocytes % (Manual) Seg Neutrophils # Seg Neutrophils # Man Lymphocytes # (Manual) Monocytes # (Manual) Eosinophils # (Manual) PT INR D-Dimer ABG pH POC ABG pCO2 POC ABG pO2 ABG pO2 ABG HCO3 ABG O2 Saturation ABG Base Excess ABG Hemoglobin ABG Oxyhemoglobin ABG Potassium ABG Glucose Oxyhemoglobin Carboxyhemoglobin Sodium Potassium Chloride Carbon Dioxide BUN Creatinine Glucose POC Glucose 157 H 134 H 163 H Calcium Ferritin Total Bilirubin Alkaline Phosphatase Lactate Dehydrogenase Troponin T C-Reactive Protein Total Protein Albumin Prealbumin LDL Cholesterol Direct Arterial Blood Glucose Arterial Blood Ionized Calcium Urine WBC (Auto) 03/09/20 03/09/20 03/09/20 08:35 08:35 12:11 WBC 23.4 H RBC 3.36 L Hgb 9.3 L Hct 28.8 L MCV MCH RDW 15.9 H Plt Count 521 H Lymph % (Auto) [place] # (Auto) Seg Neutrophils % Seg Neuts % (Manual) 87.0 H Lymphocytes % (Manual) 4.0 L Monocytes % (Manual) 9.0 H Seg Neutrophils # Seg Neutrophils # Man 20.4 H Lymphocytes # (Manual) 0.9 L Monocytes # (Manual) 2.1 H Eosinophils # (Manual) PT INR D-Dimer ABG pH POC ABG pCO2 POC ABG pO2 ABG pO2 ABG HCO3 ABG O2 Saturation ABG Base Excess ABG Hemoglobin ABG Oxyhemoglobin ABG Potassium ABG Glucose Oxyhemoglobin Carboxyhemoglobin Sodium 147 H Potassium Chloride Carbon Dioxide 37 H BUN 63 H Creatinine Glucose 154 H POC Glucose 128 H Calcium Ferritin Total Bilirubin Alkaline Phosphatase Lactate Dehydrogenase Troponin T C-Reactive Protein Total Protein Albumin Prealbumin LDL Cholesterol Direct Arterial Blood Glucose Arterial Blood Ionized Calcium Urine WBC (Auto) 03/09/20 03/10/20 03/10/20 17:51 00:25 05:41 WBC RBC Hgb Hct MCV MCH RDW Plt Count Lymph % (Auto) [place] # (Auto) Seg Neutrophils % Seg Neuts % (Manual) Lymphocytes % (Manual) Monocytes % (Manual) Seg Neutrophils # Seg Neutrophils # Man Lymphocytes # (Manual) Monocytes # (Manual) Eosinophils # (Manual) PT INR D-Dimer ABG pH POC ABG pCO2 POC ABG pO2 ABG pO2 ABG HCO3 ABG O2 Saturation ABG Base Excess ABG Hemoglobin ABG Oxyhemoglobin ABG Potassium ABG Glucose Oxyhemoglobin Carboxyhemoglobin Sodium Potassium Chloride Carbon Dioxide BUN Creatinine Glucose POC Glucose 127 H 128 H 153 H Calcium Ferritin Total Bilirubin Alkaline Phosphatase Lactate Dehydrogenase Troponin T C-Reactive Protein Total Protein Albumin Prealbumin LDL Cholesterol Direct Arterial Blood Glucose Arterial Blood Ionized Calcium Urine WBC (Auto) 03/10/20 03/10/20 03/10/20 06:14 06:14 12:02 WBC 18.3 H RBC 3.45 L Hgb 9.5 L Hct 29.5 L MCV MCH RDW 16.1 H Plt Count 494 H Lymph % (Auto) [place] # (Auto) Seg Neutrophils % Seg Neuts % (Manual) 95.0 H Lymphocytes % (Manual) 1.0 L Monocytes % (Manual) Seg Neutrophils # Seg Neutrophils # Man 17.4 H Lymphocytes # (Manual) 0.2 L Monocytes # (Manual) Eosinophils # (Manual) PT INR D-Dimer ABG pH POC ABG pCO2 POC ABG pO2 ABG pO2 ABG HCO3 ABG O2 Saturation ABG Base Excess ABG Hemoglobin ABG Oxyhemoglobin ABG Potassium ABG Glucose Oxyhemoglobin Carboxyhemoglobin Sodium 149 H Potassium Chloride Carbon Dioxide 35 H BUN 34 H Creatinine 0.2 L D Glucose 177 H POC Glucose 151 H Calcium Ferritin Total Bilirubin Alkaline Phosphatase Lactate Dehydrogenase Troponin T C-Reactive Protein Total Protein Albumin Prealbumin LDL Cholesterol Direct Arterial Blood Glucose Arterial Blood Ionized Calcium Urine WBC (Auto) 03/10/20 03/10/20 03/11/20 17:41 23:53 05:02 WBC RBC Hgb Hct MCV MCH RDW Plt Count Lymph % (Auto) [place] # (Auto) Seg Neutrophils % Seg Neuts % (Manual) Lymphocytes % (Manual) Monocytes % (Manual) Seg Neutrophils # Seg Neutrophils # Man Lymphocytes # (Manual) Monocytes # (Manual) Eosinophils # (Manual) PT INR D-Dimer ABG pH POC ABG pCO2 POC ABG pO2 ABG pO2 ABG HCO3 ABG O2 Saturation ABG Base Excess ABG Hemoglobin ABG Oxyhemoglobin ABG Potassium ABG Glucose Oxyhemoglobin Carboxyhemoglobin Sodium Potassium Chloride Carbon Dioxide BUN Creatinine Glucose POC Glucose 168 H 142 H 146 H Calcium Ferritin Total Bilirubin Alkaline Phosphatase Lactate Dehydrogenase Troponin T C-Reactive Protein Total Protein Albumin Prealbumin LDL Cholesterol Direct Arterial Blood Glucose Arterial Blood Ionized Calcium Urine WBC (Auto) 03/11/20 03/11/20 03/11/20 11:30 14:01 14:01 WBC 19.7 H RBC 3.04 L Hgb 8.7 L Hct 25.8 L MCV MCH RDW 15.6 H Plt Count Lymph % (Auto) [place] # (Auto) Seg Neutrophils % Seg Neuts % (Manual) Lymphocytes % (Manual) Monocytes % (Manual) Seg Neutrophils # Seg Neutrophils # Man Lymphocytes # (Manual) Monocytes # (Manual) Eosinophils # (Manual) PT INR D-Dimer ABG pH POC ABG pCO2 POC ABG pO2 ABG pO2 ABG HCO3 ABG O2 Saturation ABG Base Excess ABG Hemoglobin ABG Oxyhemoglobin ABG Potassium ABG Glucose Oxyhemoglobin Carboxyhemoglobin Sodium 151 H Potassium Chloride Carbon Dioxide 37 H BUN Creatinine < 0.2 L Glucose 171 H POC Glucose 248 H Calcium Ferritin Total Bilirubin Alkaline Phosphatase Lactate Dehydrogenase Troponin T C-Reactive Protein Total Protein Albumin Prealbumin LDL Cholesterol Direct Arterial Blood Glucose Arterial Blood Ionized Calcium Urine WBC (Auto) 03/11/20 03/11/20 03/12/20 17:09 23:52 04:39 WBC 19.9 H RBC 3.16 L Hgb 8.9 L Hct 27.5 L MCV MCH RDW 15.7 H Plt Count Lymph % (Auto) 6.8 L [place] # (Auto) 1.2 H Seg Neutrophils % 86.0 H Seg Neuts % (Manual) Lymphocytes % (Manual) Monocytes % (Manual) Seg Neutrophils # 17.1 H Seg Neutrophils # Man Lymphocytes # (Manual) Monocytes # (Manual) Eosinophils # (Manual) PT INR D-Dimer ABG pH POC ABG pCO2 POC ABG pO2 ABG pO2 ABG HCO3 ABG O2 Saturation ABG Base Excess ABG Hemoglobin ABG Oxyhemoglobin ABG Potassium ABG Glucose Oxyhemoglobin Carboxyhemoglobin Sodium Potassium Chloride Carbon Dioxide BUN Creatinine Glucose POC Glucose 124 H 131 H Calcium Ferritin Total Bilirubin Alkaline Phosphatase Lactate Dehydrogenase Troponin T C-Reactive Protein Total Protein Albumin Prealbumin LDL Cholesterol Direct Arterial Blood Glucose Arterial Blood Ionized Calcium Urine WBC (Auto) 03/12/20 03/12/20 03/12/20 04:39 05:28 11:34 WBC RBC Hgb Hct MCV MCH RDW Plt Count Lymph % (Auto) [place] # (Auto) Seg Neutrophils % Seg Neuts % (Manual) Lymphocytes % (Manual) Monocytes % (Manual) Seg Neutrophils # Seg Neutrophils # Man Lymphocytes # (Manual) Monocytes # (Manual) Eosinophils # (Manual) PT INR D-Dimer ABG pH POC ABG pCO2 POC ABG pO2 ABG pO2 ABG HCO3 ABG O2 Saturation ABG Base Excess ABG Hemoglobin ABG Oxyhemoglobin ABG Potassium ABG Glucose Oxyhemoglobin Carboxyhemoglobin Sodium 147 H Potassium Chloride Carbon Dioxide 40 H BUN Creatinine < 0.2 L Glucose 175 H POC Glucose 167 H 144 H Calcium Ferritin Total Bilirubin Alkaline Phosphatase Lactate Dehydrogenase Troponin T C-Reactive Protein Total Protein Albumin Prealbumin LDL Cholesterol Direct Arterial Blood Glucose Arterial Blood Ionized Calcium Urine WBC (Auto) 03/12/20 03/12/20 03/13/20 17:32 23:57 05:57 WBC RBC Hgb Hct MCV MCH RDW Plt Count Lymph % (Auto) [place] # (Auto) Seg Neutrophils % Seg Neuts % (Manual) Lymphocytes % (Manual) Monocytes % (Manual) Seg Neutrophils # Seg Neutrophils # Man Lymphocytes # (Manual) Monocytes # (Manual) Eosinophils # (Manual) PT INR D-Dimer ABG pH POC ABG pCO2 POC ABG pO2 ABG pO2 ABG HCO3 ABG O2 Saturation ABG Base Excess ABG Hemoglobin ABG Oxyhemoglobin ABG Potassium ABG Glucose Oxyhemoglobin Carboxyhemoglobin Sodium Potassium Chloride Carbon Dioxide BUN Creatinine Glucose POC Glucose 141 H 137 H 161 H Calcium Ferritin Total Bilirubin Alkaline Phosphatase Lactate Dehydrogenase Troponin T C-Reactive Protein Total Protein Albumin Prealbumin LDL Cholesterol Direct Arterial Blood Glucose Arterial Blood Ionized Calcium Urine WBC (Auto) 03/13/20 03/13/20 03/13/20 12:28 14:14 18:39 WBC RBC Hgb Hct MCV MCH RDW Plt Count Lymph % (Auto) [place] # (Auto) Seg Neutrophils % Seg Neuts % (Manual) Lymphocytes % (Manual) Monocytes % (Manual) Seg Neutrophils # Seg Neutrophils # Man Lymphocytes # (Manual) Monocytes # (Manual) Eosinophils # (Manual) PT INR D-Dimer ABG pH POC ABG pCO2 POC ABG pO2 ABG pO2 ABG HCO3 ABG O2 Saturation ABG Base Excess ABG Hemoglobin ABG Oxyhemoglobin ABG Potassium ABG Glucose Oxyhemoglobin Carboxyhemoglobin Sodium Potassium Chloride Carbon Dioxide 39 H BUN Creatinine < 0.2 L Glucose 129 H POC Glucose 130 H 125 H Calcium Ferritin Total Bilirubin Alkaline Phosphatase Lactate Dehydrogenase Troponin T C-Reactive Protein Total Protein Albumin Prealbumin LDL Cholesterol Direct Arterial Blood Glucose Arterial Blood Ionized Calcium Urine WBC (Auto) 03/13/20 03/14/20 03/14/20 23:33 05:24 08:07 WBC 16.8 H RBC 2.81 L Hgb 7.9 L Hct 23.9 L MCV MCH RDW 15.9 H Plt Count Lymph % (Auto) [place] # (Auto) Seg Neutrophils % Seg Neuts % (Manual) 84.0 H Lymphocytes % (Manual) 10.0 L Monocytes % (Manual) Seg Neutrophils # Seg Neutrophils # Man 14.1 H Lymphocytes # (Manual) Monocytes # (Manual) Eosinophils # (Manual) PT INR D-Dimer ABG pH POC ABG pCO2 POC ABG pO2 ABG pO2 ABG HCO3 ABG O2 Saturation ABG Base Excess ABG Hemoglobin ABG Oxyhemoglobin ABG Potassium ABG Glucose Oxyhemoglobin Carboxyhemoglobin Sodium Potassium Chloride Carbon Dioxide BUN Creatinine Glucose POC Glucose 146 H 125 H Calcium Ferritin Total Bilirubin Alkaline Phosphatase Lactate Dehydrogenase Troponin T C-Reactive Protein Total Protein Albumin Prealbumin LDL Cholesterol Direct Arterial Blood Glucose Arterial Blood Ionized Calcium Urine WBC (Auto) 03/14/20 03/14/20 03/14/20 08:07 12:21 18:26 WBC RBC Hgb Hct MCV MCH RDW Plt Count Lymph % (Auto) [place] # (Auto) Seg Neutrophils % Seg Neuts % (Manual) Lymphocytes % (Manual) Monocytes % (Manual) Seg Neutrophils # Seg Neutrophils # Man Lymphocytes # (Manual) Monocytes # (Manual) Eosinophils # (Manual) PT INR D-Dimer ABG pH POC ABG pCO2 POC ABG pO2 ABG pO2 ABG HCO3 ABG O2 Saturation ABG Base Excess ABG Hemoglobin ABG Oxyhemoglobin ABG Potassium ABG Glucose Oxyhemoglobin Carboxyhemoglobin Sodium Potassium Chloride 97.0 L Carbon Dioxide 37 H BUN Creatinine < 0.2 L Glucose 129 H POC Glucose 109 H 142 H Calcium 8.3 L Ferritin Total Bilirubin Alkaline Phosphatase Lactate Dehydrogenase Troponin T C-Reactive Protein Total Protein Albumin Prealbumin LDL Cholesterol Direct Arterial Blood Glucose Arterial Blood Ionized Calcium Urine WBC (Auto) 03/14/20 03/15/20 03/15/20 23:57 05:46 08:06 WBC 19.7 H RBC 3.29 L Hgb 9.1 L Hct 28.0 L MCV MCH RDW 15.9 H Plt Count Lymph % (Auto) [place] # (Auto) Seg Neutrophils % Seg Neuts % (Manual) Lymphocytes % (Manual) Monocytes % (Manual) Seg Neutrophils # Seg Neutrophils # Man Lymphocytes # (Manual) Monocytes # (Manual) Eosinophils # (Manual) PT INR D-Dimer ABG pH POC ABG pCO2 POC ABG pO2 ABG pO2 ABG HCO3 ABG O2 Saturation ABG Base Excess ABG Hemoglobin ABG Oxyhemoglobin ABG Potassium ABG Glucose Oxyhemoglobin Carboxyhemoglobin Sodium Potassium Chloride Carbon Dioxide BUN Creatinine Glucose POC Glucose 157 H 118 H Calcium Ferritin Total Bilirubin Alkaline Phosphatase Lactate Dehydrogenase Troponin T C-Reactive Protein Total Protein Albumin Prealbumin LDL Cholesterol Direct Arterial Blood Glucose Arterial Blood Ionized Calcium Urine WBC (Auto) 03/15/20 03/15/20 03/15/20 08:06 12:44 18:09 WBC RBC Hgb Hct MCV MCH RDW Plt Count Lymph % (Auto) [place] # (Auto) Seg Neutrophils % Seg Neuts % (Manual) Lymphocytes % (Manual) Monocytes % (Manual) Seg Neutrophils # Seg Neutrophils # Man Lymphocytes # (Manual) Monocytes # (Manual) Eosinophils # (Manual) PT INR D-Dimer ABG pH POC ABG pCO2 POC ABG pO2 ABG pO2 ABG HCO3 ABG O2 Saturation ABG Base Excess ABG Hemoglobin ABG Oxyhemoglobin ABG Potassium ABG Glucose Oxyhemoglobin Carboxyhemoglobin Sodium 136 L Potassium Chloride 93.6 L Carbon Dioxide 37 H BUN Creatinine < 0.2 L Glucose 132 H POC Glucose 151 H 164 H Calcium Ferritin Total Bilirubin Alkaline Phosphatase Lactate Dehydrogenase Troponin T C-Reactive Protein Total Protein Albumin Prealbumin LDL Cholesterol Direct Arterial Blood Glucose Arterial Blood Ionized Calcium Urine WBC (Auto) 03/15/20 03/16/20 03/16/20 23:26 05:39 11:58 WBC RBC Hgb Hct MCV MCH RDW Plt Count Lymph % (Auto) [place] # (Auto) Seg Neutrophils % Seg Neuts % (Manual) Lymphocytes % (Manual) Monocytes % (Manual) Seg Neutrophils # Seg Neutrophils # Man Lymphocytes # (Manual) Monocytes # (Manual) Eosinophils # (Manual) PT INR D-Dimer ABG pH POC ABG pCO2 POC ABG pO2 ABG pO2 ABG HCO3 ABG O2 Saturation ABG Base Excess ABG Hemoglobin ABG Oxyhemoglobin ABG Potassium ABG Glucose Oxyhemoglobin Carboxyhemoglobin Sodium Potassium Chloride Carbon Dioxide BUN Creatinine Glucose POC Glucose 136 H 116 H 109 H Calcium Ferritin Total Bilirubin Alkaline Phosphatase Lactate Dehydrogenase Troponin T C-Reactive Protein Total Protein Albumin Prealbumin LDL Cholesterol Direct Arterial Blood Glucose Arterial Blood Ionized Calcium Urine WBC (Auto) Chest x-ray: other (none today) Allied health notes reviewed: nursing
--- NOTE | 2020-03-16 14:48 | Progress Note ---
Assessment and Plan --Acute hypoxic hypercapnic respiratory failure; Intubated on mechanical ventilation. Etiology secondary to sepsis, ALS, multifocal pneumonia (Covid negative). S/p trach placement 03/07/20 --Dysphagia, need PEG placement, now on NG Tf --ALS; Chronic Continue to provide supportive care --Elevated D-dimers; CTA chest, lower extremity venous Doppler both are negative Lovenox for DVT prophylaxis --Bilateral pneumonia; probably community-acquired Continue cefepime and vancomycin ID recommendations appreciated --Sepsis secondary to pneumonia Continue cefepime and vancomycin --Elevated troponin; Serial cardiac enzymes, serial EKGs Echocardiogram, cardiology consult if needed --Hypernatremia Trend sodium Free water via feeding tube --Abdominal distention due to bladder outlet obstruction, resolved CT abdomen showed bladder outlet obstruction, urology consulted s/p drake placement by urology on 03/09 --Hypotension possibly from septic shock and bladder outlet obstruction improved following placing drake --Hypernatremia due to hypovolumia free water with TF and place on 1/2NS --DVT prophylaxis; Lovenox The high probability of a clinically significant, sudden or life threatening deterioration of the [cardiac, renal and respiratory] system(s) required my full and direct attention, intervention and personal management. The aggregate critical care time was [34] minutes. This time is in addition to time spent performing reported procedures but includes the following: [x] Data Review and interpretation [x] Patient assessment and monitoring of vital signs [x] Documentation [x] Medication orders and management Brief history: 59-year-old male patient with significant past medical history of ALS, presented to ED with worsening shortness of breath since the morning DISK SHARPENER. Patient was on a trilogy machine for breathing 18/11. EMS arrived, patient had O2 sats in the 80s. EMS attempted to place patient on their CPAP machine, however patient did not tolerate. Patient was admitted to the ICU with diagnosis of acute hypoxic respiratory failure and placed on BiPAP. Patient initially tolerated but later deteriorated with respiratory status. CTA chest showed no PE but significant for bilateral pneumonia. Doppler ultrasound also negative for DVT. COVID-19 test ordered. Due to persistent hypoxia, patient was intubated on 02/26/2020 at 1500. Patient now on mechanical ventilation in the ICU s/p trach placement today. Daily course: 02/26/2020. Blood cultures are negative x48 hours and Covid testing negative as well. Continue antibiotics per ID recommendations for community-acquired bilateral pneumonia. Cardiology consultation for elevated troponin. Check echocardiogram. 02/27/2020. Events of yesterday noted with asystole following V. fib arrest. Patient currently on AC mode rate 20, tidal volume 400, FiO2 50% and a PEEP of 6. Follow-up echocardiogram for elevated troponin. Cardiology suspects NSTEMI Type 2 in the setting of acute resp failure. Chest CTA and BLE Dopplers neg. we will discontinue Decadron given the Covid PCR is negative. 02/28/2020. Spoke with the sister Felisa Eli who is the power of title attorney regarding advanced directives and she instructed me that she would like to continue with aggressive care at this time. I informed her of the guarded prognosis and high mortality/morbidity and she voiced understanding. Patient currently with AC mode ventilation rate 18, tidal volume 400, FiO2 40% and a PEEP of 6. Continue antibiotics for pneumonia. ID previously consulted. Also consult neurology with regards to ALS. 02/29/2020; patient is intubated and on CPAP patient is alert and oriented. Patient has ALS. Dr. Álvarez spoke with his sister and she wants aggressive care. Continue antibiotics for pneumonia. Neurology consulted for ALS. Prognosis poor 03/01/2020; patient is intubated and on CPAP, patient is alert and oriented. I spoke with his 2 sisters about the management plan. 03/02/2020; patient is intubated and on CPAP. Patient was alert and oriented. I spoke with Dr. mohr and he thinks patient may need mechanical ventilation, likely his disease progressed. Dr. Flowers did debridement this morning. 03/03/2020; patient is intubated and on CPAP, patient was on trilogy and BiPAP at home. Patient has ALS. on spontaneous breathing trial. Patient is alert and oriented but quadriplegic. Patient has severe bilateral pneumonia and is on cefepime and Vanco, ID is following. Patient has sacral decubitus ulcer and debridement was done by Dr. Flowers and there is no osteomyelitis. 03/05. Patient still on broad-spectrum antibiotics. Status post sacral decubitus ulcer debridements-no osteomyelitis. Patient is on AC 25/400/30% PEEP 5. No blood gas results today. 03/06. Plan for tracheostomy by surgery. Still remains intubated. Labs reviewed-sodium 150. Started on free water 200 every 8hr. trend sodium. 03/07: s/p trach placement today, patient placed back on mechanical ventilation with trach. Plan to resume tube feeding with NG tube. Continue to monitor vitals, monitor BMP. 03/08: Patient noted to have distended abdomen with low urinary output. Obtain bladder scan rule out urine retention, UA and urine culture, continue to follow clinically. 03/09: Patient noted to have low blood pressure with SBP as low as 70s. Ordered for 500 mils normal saline bolus. CT abdomen showed bladder outlet obstruction, urology consulted. 03/10: placed on drake by urology o/n, improved urine outpt. cont to monitor BMP. resuded TF - cont free water with TF. wean off from vent as tolerated. 03/11: Vitals stable. cont TF, wean off from vent as tolerated. start on 1/2 NS for hypernatremia - follow BMP 03/12: wean off vent as tolerated, plan for speech eval, cont Tf for now, cont iv fluid 03/13: unable to wean off from vent, unable to do speech therapy eval. will need PEG tube, cont supportive care for now, cont NG tube feeding 03/14: consulted GI for PEg placemnet, cont supportive care. remains on vent at night 03/15: Discussed with GI, plan for PEG tube placement possibly tomorrow. Continue supportive care and wean off from vent as tolerated. Hold Lovenox dose tonight. 03/16: family didnot consent for PEG placement yesterday. I spoke with the daughter today and she is now agreeable for PEG tube. I explained the necessity of the procedure with RN to the patient also and he nodded yes for the procedure. will cont supportive care. planned for PEG tube placement tomorrow. Subjective Date of service: 03/16/20 Principal diagnosis: Ac on Ch Hypercapnic & hypoxemic Resp Failure; Severe Sepsis; Jamar PNA; ALS Interval history: Patient seen and examined Remains on mechanical ventilation with trach tube Discussed with RN at the bedside Vitals reviewed -BP stable discussed with daughter by phone Objective - Exam Narrative Exam: GENERAL: Awake. Intubated with trach tube HEAD: No signs of head trauma. EYES: Pupils are equal. Extraocular motions intact. EARS: Hearing grossly intact. MOUTH: Oropharynx is normal. NECK: No adenopathy, no JVD. CHEST: Coarse breath sounds bilaterally CARDIAC: Regular rate and rhythm. S1 and S2, without murmurs, gallops, or rubs. VASCULAR: No Edema. Peripheral pulses normal and equal in all extremities. ABDOMEN: Soft, non tender and nondistended. Bowel Sounds normal. NEUROLOGIC EXAM: Awake, paraplegic SKIN: No obvious lesions - Constitutional Vitals: Vital Signs - 12hr 03/16/20 03/16/20 03/16/20 03:00 03:16 03:30 Temperature Pulse Rate 103 H 112 H 116 H Pulse Rate [ From Monitor] Respiratory 15 20 20 Rate Blood Pressure 97/68 97/68 97/70 O2 Sat by Pulse 98 99 98 Oximetry O2 Sat by Pulse Oximetry [ Assessment] 03/16/20 03/16/20 03/16/20 03:46 04:00 04:13 Temperature 99.0 F Pulse Rate 117 H 118 H 115 H Pulse Rate [ 112 H From Monitor] Respiratory 20 20 Rate Blood Pressure 97/70 91/64 91/64 O2 Sat by Pulse 98 98 97 Oximetry O2 Sat by Pulse 97 Oximetry [ Assessment] 03/16/20 03/16/20 03/16/20 04:16 04:27 04:30 Temperature Pulse Rate 114 H 111 H 108 H Pulse Rate [ From Monitor] Respiratory 20 17 Rate Blood Pressure 91/64 110/79 O2 Sat by Pulse 97 97 Oximetry O2 Sat by Pulse Oximetry [ Assessment] 03/16/20 03/16/20 03/16/20 04:46 05:00 05:16 Temperature Pulse Rate 114 H 107 H 107 H Pulse Rate [ From Monitor] Respiratory 16 17 16 Rate Blood Pressure 91/64 102/77 110/79 O2 Sat by Pulse 98 99 99 Oximetry O2 Sat by Pulse Oximetry [ Assessment] 03/16/20 03/16/20 03/16/20 05:30 05:46 06:00 Temperature Pulse Rate 106 H 107 H 107 H Pulse Rate [ From Monitor] Respiratory 12 14 14 Rate Blood Pressure 109/81 102/77 99/71 O2 Sat by Pulse 98 98 96 Oximetry O2 Sat by Pulse Oximetry [ Assessment] 03/16/20 03/16/20 03/16/20 06:16 06:30 06:46 Temperature Pulse Rate 100 H 100 H 99 H Pulse Rate [ From Monitor] Respiratory 14 14 16 Rate Blood Pressure 95/68 106/69 106/69 O2 Sat by Pulse 94 94 95 Oximetry O2 Sat by Pulse Oximetry [ Assessment] 03/16/20 03/16/20 03/16/20 07:00 07:10 07:16 Temperature Pulse Rate 96 H 100 H 96 H Pulse Rate [ From Monitor] Respiratory 17 22 22 Rate Blood Pressure 112/77 95/68 112/77 O2 Sat by Pulse 96 94 98 Oximetry O2 Sat by Pulse Oximetry [ Assessment] 03/16/20 03/16/20 03/16/20 07:30 07:46 08:00 Temperature 99.3 F Pulse Rate 96 H 100 H 101 H Pulse Rate [ From Monitor] Respiratory 21 21 22 Rate Blood Pressure 104/72 104/72 112/79 O2 Sat by Pulse 95 97 97 Oximetry O2 Sat by Pulse Oximetry [ Assessment] 03/16/20 03/16/20 03/16/20 08:16 08:30 08:46 Temperature Pulse Rate 102 H 101 H 101 H Pulse Rate [ From Monitor] Respiratory 23 22 25 H Rate Blood Pressure 112/79 112/78 112/78 O2 Sat by Pulse 97 96 96 Oximetry O2 Sat by Pulse Oximetry [ Assessment] 03/16/20 03/16/20 03/16/20 09:00 09:16 09:30 Temperature Pulse Rate 102 H 104 H 100 H Pulse Rate [ From Monitor] Respiratory 27 H 24 18 Rate Blood Pressure 110/78 110/78 113/78 O2 Sat by Pulse 96 94 95 Oximetry O2 Sat by Pulse Oximetry [ Assessment] 03/16/20 03/16/20 03/16/20 09:46 10:00 10:16 Temperature Pulse Rate 112 H 103 H 101 H Pulse Rate [ From Monitor] Respiratory 24 20 23 Rate Blood Pressure 113/78 118/83 118/83 O2 Sat by Pulse 95 95 96 Oximetry O2 Sat by Pulse Oximetry [ Assessment] 03/16/20 03/16/20 03/16/20 10:30 10:46 11:00 Temperature Pulse Rate 99 H 99 H 92 H Pulse Rate [ From Monitor] Respiratory 19 29 H 21 Rate Blood Pressure 112/75 112/75 115/78 O2 Sat by Pulse 95 96 96 Oximetry O2 Sat by Pulse Oximetry [ Assessment] 03/16/20 03/16/20 03/16/20 11:15 11:16 11:30 Temperature Pulse Rate 92 H 89 94 H Pulse Rate [ From Monitor] Respiratory 24 19 23 Rate Blood Pressure 115/78 115/78 121/80 O2 Sat by Pulse 96 97 97 Oximetry O2 Sat by Pulse Oximetry [ Assessment] 03/16/20 03/16/20 03/16/20 11:46 11:57 12:00 Temperature 99.3 F Pulse Rate 91 H 95 H Pulse Rate [ From Monitor] Respiratory 20 19 Rate Blood Pressure 121/80 113/80 O2 Sat by Pulse 96 97 Oximetry O2 Sat by Pulse 98 Oximetry [ Assessment] 03/16/20 03/16/20 03/16/20 12:16 12:30 12:46 Temperature Pulse Rate 95 H 95 H 104 H Pulse Rate [ From Monitor] Respiratory 22 21 24 Rate Blood Pressure 113/80 116/79 116/79 O2 Sat by Pulse 95 97 96 Oximetry O2 Sat by Pulse Oximetry [ Assessment] 03/16/20 03/16/20 03/16/20 13:00 13:16 13:30 Temperature Pulse Rate 98 H 100 H 95 H Pulse Rate [ From Monitor] Respiratory 24 21 20 Rate Blood Pressure 111/76 111/76 119/78 O2 Sat by Pulse 96 96 97 Oximetry O2 Sat by Pulse Oximetry [ Assessment] 03/16/20 03/16/20 13:46 14:00 Temperature Pulse Rate 98 H 100 H Pulse Rate [ From Monitor] Respiratory 21 22 Rate Blood Pressure 119/78 122/83 O2 Sat by Pulse 96 96 Oximetry O2 Sat by Pulse Oximetry [ Assessment] - Labs CBC & Chem 7: 03/17/20 04:40 03/17/20 04:40 Labs: Abnormal lab results 03/15/20 03/15/20 03/16/20 Range/Units 18:09 23:26 05:39 POC Glucose 164 H 136 H 116 H (70-105) mg/dL 03/16/20 Range/Units 11:58 POC Glucose 109 H (70-105) mg/dL HEART Score - HEART Score Troponin: Troponin T 0.034 ng/mL (0.00-0.029) H D 02/24/20 19:35
--- NOTE | 2020-03-16 18:25 | Gastroenterology Progress Note ---
Assessment and Plan a 59 yo male with pmh of ALS admitted on 02/24/2020 for respiratory failure for bilateral pneumonia. Hospital course complicated respiratory failure, NSTEMI, s/p sacral wound debridement, s/p trach on 03/07 due to inability to wean off the vent. GI consulted for PEG tube placement. # Dysphagia # ALS # Respiratory failure - currently vent dependent with trach (placed on 03/07/2020) with b/l pneumonia and underlying condition of ALS. - currently on NG tube with tube feeds. - spoke with daughter on the phone. Discussed the nature of the procedure including risks of potential complications including bleeding, infection, and anesthesia complication. - will plan for EGD/PEG tomorrow. - keep NPO MN. hold anticoagulation. Subjective Date of service: 03/16/20 Principal diagnosis: Ac on Ch Hypercapnic & hypoxemic Resp Failure; Severe Sepsis; Jamar PNA; ALS Interval history: Continues to be on vent via trach. Objective - Constitutional Vitals: Temp Pulse Resp BP Pulse Ox 99.0 F 94 H 27 H 118/79 96 03/16/20 16:00 03/16/20 18:00 03/16/20 18:00 03/16/20 18:00 03/16/20 18:00 General appearance: no acute distress - EENT Eyes: EOM intact ENT: hearing intact - Respiratory Respiratory effort: other (on the vent) - Cardiovascular Rhythm: regular Heart Sounds: Present: S1 & S2 - Gastrointestinal General gastrointestinal: Present: soft, non-tender, non-distended - Labs CBC & Chem 7: 03/15/20 08:06 03/15/20 08:06 Labs: Laboratory Results - last 24 hr 03/15/20 03/16/20 03/16/20 23:26 05:39 11:58 POC Glucose 136 H 116 H 109 H
[2020-03-16] MEDS: POLYETHYLENE GLYCOL 3350 17 GM POWDER PO SCH (23:08)
[2020-03-17 05:41] LABS: Hematocrit 28.8 % (35.5-45.6); Hemoglobin 9.5 gm/dl (11.8-15.2); Mean Corpuscular HGB Conc 33 % (32-34); Mean Corpuscular Volume 86 fl (84-94); Platelet Count 499 K/mm3 (140-440); Red Blood Count 3.33 M/mm3 (3.65-5.03); Red Cell Distribution Width 16.4 % (13.2-15.2)
[2020-03-17 06:07] LABS: Blood Urea Nitrogen 13 mg/dL (9-20); Calcium 8.9 mg/dL (8.4-10.2); Hemolysis Index 4
[2020-03-17 06:15] LABS: BUN/Creatinine Ratio 65
[2020-03-17 06:52] LABS: Total Cells Counted 100
[2020-03-17 06:53] LABS: Anisocytosis 1+; Stomatocytes Few
[2020-03-17 06:54] LABS: Platelet Estimate Consistent w Auto
--- NOTE | 2020-03-17 11:58 | Progress Note ---
Assessment and Plan Cultures: Blood culture no growth today SARS CoV2 PCR negative Sputum culture 03/03/2020 Stenotrophomonas Blood culture 03/03/2020 no growth today Blood culture 03/07/2020 no growth today Urine culture 03/08/2020 Izzy albicans Assessment: 59 years old male with history of ALS with chronic respiratory failure on home BiPAP, admitted on 02/24/2020 due to worsening shortness of breath for 24 hours: #Severe sepsis: likely due to bilateral pneumonia +/- left gluteal necrotic pressure ulcer. Fever resolved, leukocytosis fluctuating. #Severe bilateral pneumonia: Likely community-acquired pneumonia. Procalcitonin elevated-1.13. CTA shows no PE but multifocal pneumonia with predominance left lower lobe. No DVT on US. Elevated D-dimer -1311. SARS-CoV-2 PCR negative. Sputum culture +Stenotrophomonas. CRP 26-->4. Prcal 1.1-->1.6. Repeat CXR near complete atelectasis resolved. Completed cefepime and vancomycin on 03/06/2020. Completed levofloxacin for 7 days on 03/12/2020. #Left gluteal necrotic pressure ulcer: S/p debridement, not infected per wound care. #Acute on chronic mixed respiratory failure: now on vent via trach. #ALS #Urinary retention: CT showed markedly distended bladder. Evaluated by urology, Reardon was placed. Recommendations: - remains afebrile, off abx for the last several days. Leucocytosis seems chronic and somewhat unchanged in spite of abx. Will sign off. Please call with questions. Blanca Cueva MD, FACP [facility], [place], [facility] O: [phone] F: [phone] Subjective Date of service: 03/17/20 Principal diagnosis: Ac on Ch Hypercapnic & hypoxemic Resp Failure; Severe Sepsis; Jamar PNA; ALS Interval history: Awake, no fever. Remains on the vent via trach. Awaiting PEG. Objective - Exam Narrative Exam: Physical Exam: Constitutional: Awake, on the vent Head, Ears, Nose: Normocephalic, atraumatic. External ears, nose normal Eyes: Conjunctivae/corneas clear. No icterus. No ptosis. Neck: trach + Cardiovascular: S1, S2 + Respiratory: AE fair bilaterally and equal GI: Soft, bowel sounds + Musculoskeletal: No pedal edema, no cyanosis. Skin: No rash or abscess. Left buttock decubitus ulcer with dressing. Hem/Lymphatic: No palpable cervical or supraclavicular nodes. No lymphangitis Psych: no agitation Neurological: Awake, on the vent, exam limited. - Constitutional Vitals: Vital Signs Temp Pulse Resp BP Pulse Ox 99.5 F 104 H 38 H 113/77 95 03/17/20 03:51 03/17/20 11:00 03/17/20 11:00 03/17/20 11:00 03/17/20 11:00 Temperature -Last 24 Hours Temperature 99.5 F Temperature 98.8 F Temperature 98.4 F Temperature 99.0 F Temperature 99.3 F Temperature 99.3 F - Labs CBC & Chem 7: 03/17/20 04:40 03/17/20 04:40 Labs: Abnormal lab results 03/16/20 03/16/20 03/17/20 Range/Units 11:58 23:56 04:40 WBC 18.0 H (4.5-11.0) K/mm3 RBC 3.33 L (3.65-5.03) M/mm3 Hgb 9.5 L (11.8-15.2) gm/dl Hct 28.8 L (35.5-45.6) % RDW 16.4 H (13.2-15.2) % Plt Count 499 H (140-440) K/mm3 Seg Neuts % (Manual) 82.0 H (40.0-70.0) % Lymphocytes % (Manual) 8.0 L (13.4-35.0) % Seg Neutrophils # Man 14.8 H (1.8-7.7) K/mm3 Monocytes # (Manual) 1.3 H (0.0-0.8) K/mm3 Basophils # (Manual) 0.2 H (0.0-0.1) K/mm3 Chloride (98-107) mmol/L Carbon Dioxide (22-30) mmol/L Creatinine (0.8-1.3) mg/dL Glucose (75-100) mg/dL POC Glucose 109 H 131 H (70-105) mg/dL 03/17/20 Range/Units 04:40 WBC (4.5-11.0) K/mm3 RBC (3.65-5.03) M/mm3 Hgb (11.8-15.2) gm/dl Hct (35.5-45.6) % RDW (13.2-15.2) % Plt Count (140-440) K/mm3 Seg Neuts % (Manual) (40.0-70.0) % Lymphocytes % (Manual) (13.4-35.0) % Seg Neutrophils # Man (1.8-7.7) K/mm3 Monocytes # (Manual) (0.0-0.8) K/mm3 Basophils # (Manual) (0.0-0.1) K/mm3 Chloride 97.7 L (98-107) mmol/L Carbon Dioxide 32 H (22-30) mmol/L Creatinine < 0.2 L (0.8-1.3) mg/dL Glucose 114 H (75-100) mg/dL POC Glucose (70-105) mg/dL
--- NOTE | 2020-03-17 12:10 | Progress Note ---
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 Respiratory Failure Severe Sepsis with Shock Bilateral Pneumonia (Possible aspiration) History of ALS on Trilogy Oropharyngeal Dysphagia PUI-COVID Acute toxic metabolic encephalopathy Elevated D-dimer Elevated troponin possibly type 2 ischemia - prn anxiolytics ordered - for PEG placement later today - will resume daily SBT's in am - continue care as below otherwise; - continue daytime t-piece trials as tolerated (PSV if fails) - repeat CXR prn +/- broncoscopy for mucus plugging / large volume atelectasis - continue to rest on AC qhs - LTAC evaluation is appropriate - continue Robinul & scopolamine for secretion control - prn electrolytes and optimize K+ & Mg 2+ for best respiratory muscle function - wound care per RN/WCN - continue Scopolamine patch for secretion control - wean supplemental oxygen for target O2 sat's > 92% acutely - bronchodilators with pulmonary hygiene per RT - VAP bundle addressed - continue lung protective strategies - continue bronchodilators with pulmonary hygiene per RT - wean per pulmonary driven protocols otherwise - sedation prn for target RASS 0 to -1 - s/p empiric antiinfectives per ID rec's (Rocephin and Zithromax) - COVID-19 isolation (Airborne & Contact) - empiric Dexamethasone - follow COVID-19 test results (negative) - trend inflammatory markers to aid clinical decision making - enteral nutrition at goal rate as tolerated - Aspiration precautions - accuchecks with glycemic control per SSI (While critically ill target blood glucose of 140-180 mg/dL; avoid hypoglycemia) - avoid nephrotoxins, renally dose all medications - avoid benzodiazepine's, reduce the possibility of delirium - prn analgesia per CPOT score - Maintenance of sleep-wake cycle, avoid delirium - aspiration precautions - G.I. & VTE prophylaxis - PT/OT/ROM exercises - mobility protocols for pressure ulcer prophylaxis - Monitor hemodynamics closely - continue other care per attending / other consultants - discharge planning ongoing concurrently .... Re-evaluate in am & prn CONDITION: CRITICAL PROGNOSIS: GUARDED CODE STATUS: FULL CODE The high probability of a clinically significant, sudden or life-threatening deterioration of the [respiratory, cardiovascular & neurologic] system(s) required my full and direct attention, intervention and personal management. The aggregate critical care time was [36] minutes without overlap. Time includes spent on; [x] Data Review and interpretation [x] Patient assessment and monitoring of vital signs [x] Documentation [x] Medication orders and management Subjective Date of service: 03/17/20 Principal diagnosis: Ac on Ch Hypercapnic & hypoxemic Resp Failure; Severe Sepsis; Jamar PNA; ALS Interval history: Patient is seen today for: Acute on Chronic Hypercapnic & hypoxemic Respiratory Failure; Severe Sepsis with Shock; Bilateral Pneumonia (Possible aspiration); History of ALS on Trilogy; PUI-COVID; Acute toxic metabolic encephalopathy Seen and examined at bedside; 24hour events reviewed; nursing and respiratory care staff consulted; no adverse overnight events reported to me; resting in bed; remains on MVS; tentatively for PEG placement today; weaning on hold; no N/V/F/C; anxious Objective Vital Signs - 12hr 03/17/20 03/17/20 03/17/20 00:16 00:30 00:46 Temperature Pulse Rate 93 H 96 H 95 H Pulse Rate [ From Monitor] Respiratory 15 18 17 Rate Blood Pressure 125/86 132/87 132/87 O2 Sat by Pulse 97 97 98 Oximetry O2 Sat by Pulse Oximetry [ Assessment] 03/17/20 03/17/20 03/17/20 01:00 01:16 01:30 Temperature Pulse Rate 93 H 91 H 95 H Pulse Rate [ From Monitor] Respiratory 13 13 15 Rate Blood Pressure 126/90 126/90 130/92 O2 Sat by Pulse 98 97 97 Oximetry O2 Sat by Pulse Oximetry [ Assessment] 03/17/20 03/17/20 03/17/20 01:46 02:00 02:15 Temperature Pulse Rate 104 H 97 H 91 H Pulse Rate [ From Monitor] Respiratory 18 15 14 Rate Blood Pressure 126/90 124/86 124/86 O2 Sat by Pulse 98 97 99 Oximetry O2 Sat by Pulse Oximetry [ Assessment] 03/17/20 03/17/20 03/17/20 02:30 02:46 03:00 Temperature Pulse Rate 99 H 84 85 Pulse Rate [ From Monitor] Respiratory 19 13 13 Rate Blood Pressure 134/96 124/86 135/95 O2 Sat by Pulse 98 98 99 Oximetry O2 Sat by Pulse Oximetry [ Assessment] 03/17/20 03/17/20 03/17/20 03:16 03:30 03:45 Temperature Pulse Rate 86 89 93 H Pulse Rate [ From Monitor] Respiratory 14 13 13 Rate Blood Pressure 134/96 135/95 O2 Sat by Pulse 98 98 98 Oximetry O2 Sat by Pulse Oximetry [ Assessment] 03/17/20 03/17/20 03/17/20 03:51 04:00 04:15 Temperature 99.5 F Pulse Rate 96 H 97 H Pulse Rate [ 101 H From Monitor] Respiratory 16 17 Rate Blood Pressure 136/95 136/95 O2 Sat by Pulse 98 97 Oximetry O2 Sat by Pulse Oximetry [ Assessment] 03/17/20 03/17/20 03/17/20 04:30 04:37 04:45 Temperature Pulse Rate 101 H 104 H 94 H Pulse Rate [ From Monitor] Respiratory 13 15 Rate Blood Pressure 129/94 129/94 129/94 O2 Sat by Pulse 96 95 97 Oximetry O2 Sat by Pulse Oximetry [ Assessment] 03/17/20 03/17/20 03/17/20 05:00 05:15 05:30 Temperature Pulse Rate 97 H 93 H 94 H Pulse Rate [ From Monitor] Respiratory 13 13 12 Rate Blood Pressure 129/92 129/92 134/91 O2 Sat by Pulse 95 97 98 Oximetry O2 Sat by Pulse Oximetry [ Assessment] 03/17/20 03/17/20 03/17/20 05:45 06:00 06:15 Temperature Pulse Rate 96 H 102 H 106 H Pulse Rate [ From Monitor] Respiratory 14 19 15 Rate Blood Pressure 134/91 133/93 134/91 O2 Sat by Pulse 97 97 98 Oximetry O2 Sat by Pulse Oximetry [ Assessment] 03/17/20 03/17/20 03/17/20 06:30 06:45 07:00 Temperature Pulse Rate 95 H 94 H 99 H Pulse Rate [ From Monitor] Respiratory 13 13 14 Rate Blood Pressure 118/80 133/93 124/82 O2 Sat by Pulse 97 96 97 Oximetry O2 Sat by Pulse Oximetry [ Assessment] 03/17/20 03/17/20 03/17/20 07:15 07:30 07:45 Temperature Pulse Rate 92 H 92 H 92 H Pulse Rate [ From Monitor] Respiratory 14 17 13 Rate Blood Pressure 118/80 130/83 130/83 O2 Sat by Pulse 97 98 98 Oximetry O2 Sat by Pulse Oximetry [ Assessment] 03/17/20 03/17/20 03/17/20 08:00 08:15 08:30 Temperature Pulse Rate 94 H 101 H 90 Pulse Rate [ 94 H From Monitor] Respiratory 15 13 13 Rate Blood Pressure 120/87 130/83 128/83 O2 Sat by Pulse 99 99 98 Oximetry O2 Sat by Pulse 99 Oximetry [ Assessment] 03/17/20 03/17/20 10:00 11:00 Temperature Pulse Rate 104 H Pulse Rate [ From Monitor] Respiratory 38 H Rate Blood Pressure 113/77 O2 Sat by Pulse 95 95 Oximetry O2 Sat by Pulse Oximetry [ Assessment] Constitutional: appears uncomfortable, other (thin middle aged male with normal respiratory effort at rest on MVS) Eyes: non-icteric ENT: oropharynx moist, other (S/P Tracheostomy) Neck: supple, no lymphadenopathy, no JVD Effort: mildly labored Ascultation: Bilateral: clear, diminished breath sounds Percussion: Bilateral: not dull Cardiovascular: regular rate and rhythm, other (S1,S2, no murmurs) Gastrointestinal: normoactive bowel sounds, soft, non-tender, non-distended, other (+ distended but non tender suprapubis) Integumentary: normal, decubitus ulcer (sacral / gluteal) Extremities: no cyanosis, no edema, pulses normal, other (atrophic looking limbs) Neurologic: pupils equal and round, other (motor strength in extremities 1-2/5) Psychiatric: anxious CBC and BMP: 03/19/20 08:05 03/19/20 08:05 ABG, PT/INR, D-dimer: ABG ABG pH 7.371 (7.320-7.450) 03/08/20 12:34 POC ABG pCO2 63.1 mmHg (32.0-48.0) H 03/08/20 12:34 ABG pCO2 60.1 mm Hg 03/06/20 04:34 POC ABG pO2 90.5 mmHg (83-108) 03/08/20 12:34 ABG pO2 88.6 mm Hg (80.0-90.0) 03/06/20 04:34 POC ABG HCO3 35.7 03/08/20 12:34 ABG O2 Saturation 97.0 % (95.0-99.0) 03/06/20 04:34 PT/INR, D-dimer PT 15.6 Sec. (12.2-14.9) H 02/24/20 09:19 INR 1.21 (0.87-1.13) H 02/24/20 09:19 D-Dimer 1311.96 ng/mlDDU (0-234) H 02/24/20 09:19 Abnormal lab findings: Abnormal Labs 02/24/20 02/24/20 02/24/20 09:19 09:19 09:19 WBC 20.2 H RBC 5.05 H Hgb Hct MCV MCH RDW 15.3 H Plt Count Lymph % (Auto) [place] # (Auto) Seg Neutrophils % Seg Neuts % (Manual) 86.0 H Lymphocytes % (Manual) 1.0 L Monocytes % (Manual) Seg Neutrophils # Seg Neutrophils # Man 17.4 H Lymphocytes # (Manual) 0.2 L Monocytes # (Manual) Eosinophils # (Manual) Basophils # (Manual) PT 15.6 H INR 1.21 H D-Dimer 1311.96 H ABG pH POC ABG pCO2 POC ABG pO2 ABG pO2 ABG HCO3 ABG O2 Saturation ABG Base Excess ABG Hemoglobin ABG Oxyhemoglobin ABG Potassium ABG Glucose Oxyhemoglobin Carboxyhemoglobin Sodium 135 L Potassium 3.2 L Chloride 92.2 L Carbon Dioxide BUN 6 L Creatinine < 0.2 L Glucose 124 H POC Glucose Calcium Ferritin Total Bilirubin 2.30 H Alkaline Phosphatase 132 H Lactate Dehydrogenase Troponin T 0.080 H C-Reactive Protein Total Protein Albumin 3.6 L Prealbumin LDL Cholesterol Direct 41 L Arterial Blood Glucose Arterial Blood Ionized Calcium Urine WBC (Auto) 02/24/20 02/24/20 02/24/20 09:19 09:58 10:01 WBC RBC Hgb Hct MCV MCH RDW Plt Count Lymph % (Auto) [place] # (Auto) Seg Neutrophils % Seg Neuts % (Manual) Lymphocytes % (Manual) Monocytes % (Manual) Seg Neutrophils # Seg Neutrophils # Man Lymphocytes # (Manual) Monocytes # (Manual) Eosinophils # (Manual) Basophils # (Manual) PT INR D-Dimer ABG pH 7.176 L* POC ABG pCO2 POC ABG pO2 ABG pO2 91.2 H ABG HCO3 ABG O2 Saturation ABG Base Excess -4.6 L ABG Hemoglobin ABG Oxyhemoglobin ABG Potassium ABG Glucose Oxyhemoglobin 92.6 L Carboxyhemoglobin Sodium Potassium Chloride Carbon Dioxide BUN Creatinine Glucose POC Glucose Calcium Ferritin 1715.0 H Total Bilirubin Alkaline Phosphatase Lactate Dehydrogenase 303 H Troponin T C-Reactive Protein 26.10 H Total Protein Albumin Prealbumin LDL Cholesterol Direct Arterial Blood Glucose Arterial Blood Ionized Calcium Urine WBC (Auto) 02/24/20 02/24/20 02/24/20 11:52 13:45 19:35 WBC RBC Hgb Hct MCV MCH RDW Plt Count Lymph % (Auto) [place] # (Auto) Seg Neutrophils % Seg Neuts % (Manual) Lymphocytes % (Manual) Monocytes % (Manual) Seg Neutrophils # Seg Neutrophils # Man Lymphocytes # (Manual) Monocytes # (Manual) Eosinophils # (Manual) Basophils # (Manual) PT INR D-Dimer ABG pH 7.051 L* 7.300 L POC ABG pCO2 POC ABG pO2 ABG pO2 94.7 H 75.1 L ABG HCO3 18.0 L ABG O2 Saturation 93.5 L ABG Base Excess -6.8 L -7.8 L ABG Hemoglobin 13.2 L 11.9 L ABG Oxyhemoglobin ABG Potassium ABG Glucose Oxyhemoglobin 91.0 L 92.7 L Carboxyhemoglobin Sodium Potassium Chloride Carbon Dioxide BUN Creatinine Glucose POC Glucose Calcium Ferritin Total Bilirubin Alkaline Phosphatase Lactate Dehydrogenase Troponin T 0.034 H D C-Reactive Protein Total Protein Albumin Prealbumin LDL Cholesterol Direct Arterial Blood Glucose Arterial Blood Ionized Calcium Urine WBC (Auto) 02/25/20 02/25/20 02/25/20 04:00 04:00 12:26 WBC 22.9 H RBC Hgb Hct MCV 83 L MCH 27 L RDW Plt Count 468 H Lymph % (Auto) [place] # (Auto) Seg Neutrophils % Seg Neuts % (Manual) 89.0 H Lymphocytes % (Manual) 7.0 L Monocytes % (Manual) Seg Neutrophils # Seg Neutrophils # Man 20.4 H Lymphocytes # (Manual) Monocytes # (Manual) Eosinophils # (Manual) Basophils # (Manual) PT INR D-Dimer ABG pH POC ABG pCO2 POC ABG pO2 ABG pO2 ABG HCO3 ABG O2 Saturation ABG Base Excess ABG Hemoglobin ABG Oxyhemoglobin ABG Potassium 2.6 L ABG Glucose 142 H Oxyhemoglobin Carboxyhemoglobin Sodium Potassium 3.2 L Chloride Carbon Dioxide 18 L BUN Creatinine 0.2 L Glucose 114 H POC Glucose Calcium Ferritin Total Bilirubin Alkaline Phosphatase Lactate Dehydrogenase Troponin T C-Reactive Protein Total Protein Albumin 3.5 L Prealbumin LDL Cholesterol Direct Arterial Blood Glucose 142 H Arterial Blood Ionized Calcium Urine WBC (Auto) 02/26/20 02/26/20 02/26/20 15:58 17:00 23:43 WBC RBC Hgb Hct MCV MCH RDW Plt Count Lymph % (Auto) [place] # (Auto) Seg Neutrophils % Seg Neuts % (Manual) Lymphocytes % (Manual) Monocytes % (Manual) Seg Neutrophils # Seg Neutrophils # Man Lymphocytes # (Manual) Monocytes # (Manual) Eosinophils # (Manual) Basophils # (Manual) PT INR D-Dimer ABG pH 7.502 H POC ABG pCO2 POC ABG pO2 213.6 H ABG pO2 ABG HCO3 ABG O2 Saturation ABG Base Excess ABG Hemoglobin ABG Oxyhemoglobin 99.2 H ABG Potassium 2.9 L ABG Glucose 160 H Oxyhemoglobin Carboxyhemoglobin 0.4 L Sodium Potassium Chloride Carbon Dioxide BUN Creatinine Glucose POC Glucose 189 H 120 H Calcium Ferritin Total Bilirubin Alkaline Phosphatase Lactate Dehydrogenase Troponin T C-Reactive Protein Total Protein Albumin Prealbumin LDL Cholesterol Direct Arterial Blood Glucose 160 H Arterial Blood Ionized Calcium 4.5 L Urine WBC (Auto) 02/27/20 02/27/20 02/27/20 05:00 07:04 17:45 WBC RBC Hgb Hct MCV MCH RDW Plt Count Lymph % (Auto) [place] # (Auto) Seg Neutrophils % Seg Neuts % (Manual) Lymphocytes % (Manual) Monocytes % (Manual) Seg Neutrophils # Seg Neutrophils # Man Lymphocytes # (Manual) Monocytes # (Manual) Eosinophils # (Manual) Basophils # (Manual) PT INR D-Dimer ABG pH 7.524 H POC ABG pCO2 POC ABG pO2 ABG pO2 ABG HCO3 ABG O2 Saturation ABG Base Excess ABG Hemoglobin ABG Oxyhemoglobin ABG Potassium 3.0 L ABG Glucose 143 H Oxyhemoglobin Carboxyhemoglobin Sodium Potassium Chloride Carbon Dioxide BUN Creatinine Glucose POC Glucose 154 H 175 H Calcium Ferritin Total Bilirubin Alkaline Phosphatase Lactate Dehydrogenase Troponin T C-Reactive Protein Total Protein Albumin Prealbumin LDL Cholesterol Direct Arterial Blood Glucose 143 H Arterial Blood Ionized Calcium Urine WBC (Auto) 02/27/20 02/28/20 02/28/20 Unknown 00:21 04:15 WBC 18.7 H RBC Hgb Hct MCV MCH RDW Plt Count Lymph % (Auto) 8.7 L [place] # (Auto) 1.2 H Seg Neutrophils % 84.6 H Seg Neuts % (Manual) Lymphocytes % (Manual) Monocytes % (Manual) Seg Neutrophils # 15.9 H Seg Neutrophils # Man Lymphocytes # (Manual) Monocytes # (Manual) Eosinophils # (Manual) Basophils # (Manual) PT INR D-Dimer ABG pH POC ABG pCO2 POC ABG pO2 ABG pO2 ABG HCO3 ABG O2 Saturation ABG Base Excess ABG Hemoglobin ABG Oxyhemoglobin ABG Potassium ABG Glucose Oxyhemoglobin Carboxyhemoglobin Sodium Potassium 2.9 L* Chloride Carbon Dioxide 33 H D BUN Creatinine < 0.2 L Glucose 157 H POC Glucose 134 H Calcium Ferritin Total Bilirubin Alkaline Phosphatase Lactate Dehydrogenase Troponin T C-Reactive Protein Total Protein Albumin Prealbumin LDL Cholesterol Direct Arterial Blood Glucose Arterial Blood Ionized Calcium Urine WBC (Auto) 02/28/20 02/28/20 02/28/20 04:15 05:16 05:39 WBC RBC Hgb Hct MCV MCH RDW Plt Count Lymph % (Auto) [place] # (Auto) Seg Neutrophils % Seg Neuts % (Manual) Lymphocytes % (Manual) Monocytes % (Manual) Seg Neutrophils # Seg Neutrophils # Man Lymphocytes # (Manual) Monocytes # (Manual) Eosinophils # (Manual) Basophils # (Manual) PT INR D-Dimer ABG pH POC ABG pCO2 POC ABG pO2 ABG pO2 142.9 H ABG HCO3 34.1 H ABG O2 Saturation ABG Base Excess 8.3 H ABG Hemoglobin ABG Oxyhemoglobin ABG Potassium ABG Glucose Oxyhemoglobin Carboxyhemoglobin Sodium 151 H Potassium Chloride Carbon Dioxide 32 H BUN Creatinine 0.2 L Glucose 167 H POC Glucose 138 H Calcium Ferritin Total Bilirubin Alkaline Phosphatase Lactate Dehydrogenase Troponin T C-Reactive Protein Total Protein Albumin Prealbumin LDL Cholesterol Direct Arterial Blood Glucose Arterial Blood Ionized Calcium Urine WBC (Auto) 02/28/20 02/28/20 02/28/20 11:05 11:33 12:54 WBC RBC Hgb Hct MCV MCH RDW Plt Count Lymph % (Auto) [place] # (Auto) Seg Neutrophils % Seg Neuts % (Manual) Lymphocytes % (Manual) Monocytes % (Manual) Seg Neutrophils # Seg Neutrophils # Man Lymphocytes # (Manual) Monocytes # (Manual) Eosinophils # (Manual) Basophils # (Manual) PT INR D-Dimer ABG pH POC ABG pCO2 POC ABG pO2 ABG pO2 ABG HCO3 ABG O2 Saturation ABG Base Excess ABG Hemoglobin ABG Oxyhemoglobin ABG Potassium ABG Glucose Oxyhemoglobin Carboxyhemoglobin Sodium Potassium Chloride Carbon Dioxide BUN Creatinine Glucose POC Glucose 160 H Calcium Ferritin Total Bilirubin Alkaline Phosphatase Lactate Dehydrogenase Troponin T C-Reactive Protein 4.70 H Total Protein Albumin Prealbumin 0.090 L LDL Cholesterol Direct Arterial Blood Glucose Arterial Blood Ionized Calcium Urine WBC (Auto) 02/28/20 02/29/20 02/29/20 17:34 00:44 04:05 WBC 19.6 H RBC Hgb Hct MCV MCH 27 L RDW 15.4 H Plt Count Lymph % (Auto) [place] # (Auto) Seg Neutrophils % Seg Neuts % (Manual) 86.0 H Lymphocytes % (Manual) 7.0 L Monocytes % (Manual) Seg Neutrophils # Seg Neutrophils # Man 16.9 H Lymphocytes # (Manual) Monocytes # (Manual) 1.2 H Eosinophils # (Manual) Basophils # (Manual) PT INR D-Dimer ABG pH POC ABG pCO2 POC ABG pO2 ABG pO2 ABG HCO3 ABG O2 Saturation ABG Base Excess ABG Hemoglobin ABG Oxyhemoglobin ABG Potassium ABG Glucose Oxyhemoglobin Carboxyhemoglobin Sodium Potassium Chloride Carbon Dioxide BUN Creatinine Glucose POC Glucose 136 H 156 H Calcium Ferritin Total Bilirubin Alkaline Phosphatase Lactate Dehydrogenase Troponin T C-Reactive Protein Total Protein Albumin Prealbumin LDL Cholesterol Direct Arterial Blood Glucose Arterial Blood Ionized Calcium Urine WBC (Auto) 02/29/20 02/29/20 02/29/20 04:05 05:14 05:33 WBC RBC Hgb Hct MCV MCH RDW Plt Count Lymph % (Auto) [place] # (Auto) Seg Neutrophils % Seg Neuts % (Manual) Lymphocytes % (Manual) Monocytes % (Manual) Seg Neutrophils # Seg Neutrophils # Man Lymphocytes # (Manual) Monocytes # (Manual) Eosinophils # (Manual) Basophils # (Manual) PT INR D-Dimer ABG pH POC ABG pCO2 54.3 H POC ABG pO2 124.8 H ABG pO2 ABG HCO3 ABG O2 Saturation ABG Base Excess ABG Hemoglobin ABG Oxyhemoglobin ABG Potassium ABG Glucose 185 H Oxyhemoglobin Carboxyhemoglobin Sodium 148 H Potassium Chloride Carbon Dioxide 33 H BUN Creatinine < 0.2 L Glucose 173 H POC Glucose 152 H Calcium Ferritin Total Bilirubin Alkaline Phosphatase Lactate Dehydrogenase Troponin T C-Reactive Protein Total Protein Albumin Prealbumin LDL Cholesterol Direct Arterial Blood Glucose 185 H Arterial Blood Ionized Calcium Urine WBC (Auto) 03/01/20 03/01/20 03/01/20 00:00 03:45 04:33 WBC 23.1 H RBC Hgb Hct MCV MCH 27 L RDW 15.3 H Plt Count Lymph % (Auto) [place] # (Auto) Seg Neutrophils % Seg Neuts % (Manual) 92.0 H Lymphocytes % (Manual) 6.0 L Monocytes % (Manual) Seg Neutrophils # Seg Neutrophils # Man 21.3 H Lymphocytes # (Manual) Monocytes # (Manual) Eosinophils # (Manual) 0.5 H Basophils # (Manual) PT INR D-Dimer ABG pH 7.492 H POC ABG pCO2 POC ABG pO2 ABG pO2 157.1 H ABG HCO3 32.3 H ABG O2 Saturation ABG Base Excess 8.1 H ABG Hemoglobin 13.2 L ABG Oxyhemoglobin ABG Potassium ABG Glucose Oxyhemoglobin Carboxyhemoglobin Sodium Potassium Chloride Carbon Dioxide BUN Creatinine Glucose POC Glucose 109 H Calcium Ferritin Total Bilirubin Alkaline Phosphatase Lactate Dehydrogenase Troponin T C-Reactive Protein Total Protein Albumin Prealbumin LDL Cholesterol Direct Arterial Blood Glucose Arterial Blood Ionized Calcium Urine WBC (Auto) 03/01/20 03/01/20 03/01/20 04:33 05:29 12:32 WBC RBC Hgb Hct MCV MCH RDW Plt Count Lymph % (Auto) [place] # (Auto) Seg Neutrophils % Seg Neuts % (Manual) Lymphocytes % (Manual) Monocytes % (Manual) Seg Neutrophils # Seg Neutrophils # Man Lymphocytes # (Manual) Monocytes # (Manual) Eosinophils # (Manual) Basophils # (Manual) PT INR D-Dimer ABG pH POC ABG pCO2 POC ABG pO2 ABG pO2 ABG HCO3 ABG O2 Saturation ABG Base Excess ABG Hemoglobin ABG Oxyhemoglobin ABG Potassium ABG Glucose Oxyhemoglobin Carboxyhemoglobin Sodium 146 H Potassium Chloride Carbon Dioxide 32 H BUN Creatinine < 0.2 L Glucose 120 H POC Glucose 120 H 128 H Calcium Ferritin Total Bilirubin Alkaline Phosphatase Lactate Dehydrogenase Troponin T C-Reactive Protein Total Protein Albumin Prealbumin LDL Cholesterol Direct Arterial Blood Glucose Arterial Blood Ionized Calcium Urine WBC (Auto) 03/01/20 03/01/20 03/02/20 17:38 23:46 06:13 WBC RBC Hgb Hct MCV MCH RDW Plt Count Lymph % (Auto) [place] # (Auto) Seg Neutrophils % Seg Neuts % (Manual) Lymphocytes % (Manual) Monocytes % (Manual) Seg Neutrophils # Seg Neutrophils # Man Lymphocytes # (Manual) Monocytes # (Manual) Eosinophils # (Manual) Basophils # (Manual) PT INR D-Dimer ABG pH POC ABG pCO2 POC ABG pO2 ABG pO2 ABG HCO3 ABG O2 Saturation ABG Base Excess ABG Hemoglobin ABG Oxyhemoglobin ABG Potassium ABG Glucose Oxyhemoglobin Carboxyhemoglobin Sodium Potassium Chloride Carbon Dioxide BUN Creatinine Glucose POC Glucose 114 H 121 H 120 H Calcium Ferritin Total Bilirubin Alkaline Phosphatase Lactate Dehydrogenase Troponin T C-Reactive Protein Total Protein Albumin Prealbumin LDL Cholesterol Direct Arterial Blood Glucose Arterial Blood Ionized Calcium Urine WBC (Auto) 03/02/20 03/02/20 03/03/20 09:47 09:47 10:21 WBC 23.6 H RBC Hgb Hct MCV MCH RDW 15.3 H Plt Count 494 H Lymph % (Auto) [place] # (Auto) Seg Neutrophils % Seg Neuts % (Manual) 85.0 H Lymphocytes % (Manual) 6.0 L Monocytes % (Manual) Seg Neutrophils # Seg Neutrophils # Man 20.1 H Lymphocytes # (Manual) Monocytes # (Manual) 1.7 H Eosinophils # (Manual) Basophils # (Manual) PT INR D-Dimer ABG pH POC ABG pCO2 POC ABG pO2 ABG pO2 ABG HCO3 ABG O2 Saturation ABG Base Excess ABG Hemoglobin ABG Oxyhemoglobin ABG Potassium 3.3 L ABG Glucose 158 H Oxyhemoglobin Carboxyhemoglobin Sodium Potassium Chloride Carbon Dioxide BUN Creatinine < 0.2 L Glucose 177 H POC Glucose Calcium Ferritin Total Bilirubin Alkaline Phosphatase Lactate Dehydrogenase Troponin T C-Reactive Protein Total Protein Albumin Prealbumin LDL Cholesterol Direct Arterial Blood Glucose 158 H Arterial Blood Ionized Calcium Urine WBC (Auto) 03/03/20 03/04/20 03/04/20 21:30 00:00 12:23 WBC RBC Hgb Hct MCV MCH RDW Plt Count Lymph % (Auto) [place] # (Auto) Seg Neutrophils % Seg Neuts % (Manual) Lymphocytes % (Manual) Monocytes % (Manual) Seg Neutrophils # Seg Neutrophils # Man Lymphocytes # (Manual) Monocytes # (Manual) Eosinophils # (Manual) Basophils # (Manual) PT INR D-Dimer ABG pH 7.328 L POC ABG pCO2 POC ABG pO2 ABG pO2 68.4 L ABG HCO3 35.0 H ABG O2 Saturation 93.9 L ABG Base Excess 6.8 H ABG Hemoglobin 12.7 L ABG Oxyhemoglobin ABG Potassium ABG Glucose Oxyhemoglobin 91.9 L Carboxyhemoglobin Sodium Potassium Chloride Carbon Dioxide BUN Creatinine Glucose POC Glucose 187 H 163 H Calcium Ferritin Total Bilirubin Alkaline Phosphatase Lactate Dehydrogenase Troponin T C-Reactive Protein Total Protein Albumin Prealbumin LDL Cholesterol Direct Arterial Blood Glucose Arterial Blood Ionized Calcium Urine WBC (Auto) 03/04/20 03/04/20 03/05/20 18:15 21:30 06:02 WBC RBC Hgb Hct MCV MCH RDW Plt Count Lymph % (Auto) [place] # (Auto) Seg Neutrophils % Seg Neuts % (Manual) Lymphocytes % (Manual) Monocytes % (Manual) Seg Neutrophils # Seg Neutrophils # Man Lymphocytes # (Manual) Monocytes # (Manual) Eosinophils # (Manual) Basophils # (Manual) PT INR D-Dimer ABG pH 7.297 L POC ABG pCO2 POC ABG pO2 ABG pO2 ABG HCO3 41.0 H ABG O2 Saturation ABG Base Excess 11.0 H ABG Hemoglobin 13.1 L ABG Oxyhemoglobin ABG Potassium ABG Glucose Oxyhemoglobin 94.5 L Carboxyhemoglobin Sodium Potassium Chloride Carbon Dioxide BUN Creatinine Glucose POC Glucose 192 H 127 H Calcium Ferritin Total Bilirubin Alkaline Phosphatase Lactate Dehydrogenase Troponin T C-Reactive Protein Total Protein Albumin Prealbumin LDL Cholesterol Direct Arterial Blood Glucose Arterial Blood Ionized Calcium Urine WBC (Auto) 03/05/20 03/05/20 03/06/20 12:09 16:42 00:24 WBC RBC Hgb Hct MCV MCH RDW Plt Count Lymph % (Auto) [place] # (Auto) Seg Neutrophils % Seg Neuts % (Manual) Lymphocytes % (Manual) Monocytes % (Manual) Seg Neutrophils # Seg Neutrophils # Man Lymphocytes # (Manual) Monocytes # (Manual) Eosinophils # (Manual) Basophils # (Manual) PT INR D-Dimer ABG pH POC ABG pCO2 POC ABG pO2 ABG pO2 ABG HCO3 ABG O2 Saturation ABG Base Excess ABG Hemoglobin ABG Oxyhemoglobin ABG Potassium ABG Glucose Oxyhemoglobin Carboxyhemoglobin Sodium Potassium Chloride Carbon Dioxide BUN Creatinine Glucose POC Glucose 147 H 114 H 134 H Calcium Ferritin Total Bilirubin Alkaline Phosphatase Lactate Dehydrogenase Troponin T C-Reactive Protein Total Protein Albumin Prealbumin LDL Cholesterol Direct Arterial Blood Glucose Arterial Blood Ionized Calcium Urine WBC (Auto) 03/06/20 03/06/20 03/06/20 04:34 05:53 06:08 WBC 25.4 H RBC Hgb 10.5 L Hct 32.7 L MCV MCH 27 L RDW 15.3 H Plt Count 634 H Lymph % (Auto) [place] # (Auto) Seg Neutrophils % Seg Neuts % (Manual) 88.0 H Lymphocytes % (Manual) 2.0 L Monocytes % (Manual) 8.0 H Seg Neutrophils # Seg Neutrophils # Man 22.4 H Lymphocytes # (Manual) 0.5 L Monocytes # (Manual) 2.0 H Eosinophils # (Manual) Basophils # (Manual) PT INR D-Dimer ABG pH POC ABG pCO2 POC ABG pO2 ABG pO2 ABG HCO3 37.9 H ABG O2 Saturation ABG Base Excess 11.4 H ABG Hemoglobin 10.6 L ABG Oxyhemoglobin ABG Potassium ABG Glucose Oxyhemoglobin 94.7 L Carboxyhemoglobin Sodium Potassium Chloride Carbon Dioxide BUN Creatinine Glucose POC Glucose 135 H Calcium Ferritin Total Bilirubin Alkaline Phosphatase Lactate Dehydrogenase Troponin T C-Reactive Protein Total Protein Albumin Prealbumin LDL Cholesterol Direct Arterial Blood Glucose Arterial Blood Ionized Calcium Urine WBC (Auto) 03/06/20 03/06/20 03/06/20 06:08 12:19 19:10 WBC RBC Hgb Hct MCV MCH RDW Plt Count Lymph % (Auto) [place] # (Auto) Seg Neutrophils % Seg Neuts % (Manual) Lymphocytes % (Manual) Monocytes % (Manual) Seg Neutrophils # Seg Neutrophils # Man Lymphocytes # (Manual) Monocytes # (Manual) Eosinophils # (Manual) Basophils # (Manual) PT INR D-Dimer ABG pH POC ABG pCO2 POC ABG pO2 ABG pO2 ABG HCO3 ABG O2 Saturation ABG Base Excess ABG Hemoglobin ABG Oxyhemoglobin ABG Potassium ABG Glucose Oxyhemoglobin Carboxyhemoglobin Sodium 150 H D Potassium Chloride Carbon Dioxide 39 H D BUN 23 H Creatinine < 0.2 L Glucose 144 H POC Glucose 169 H 152 H Calcium Ferritin Total Bilirubin Alkaline Phosphatase Lactate Dehydrogenase Troponin T C-Reactive Protein Total Protein Albumin 3.3 L Prealbumin LDL Cholesterol Direct Arterial Blood Glucose Arterial Blood Ionized Calcium Urine WBC (Auto) 03/06/20 03/07/20 03/07/20 23:58 04:25 04:25 WBC 22.1 H RBC Hgb 10.9 L Hct 32.9 L MCV MCH RDW 15.5 H Plt Count 739 H Lymph % (Auto) 7.8 L [place] # (Auto) 1.3 H Seg Neutrophils % 85.5 H Seg Neuts % (Manual) Lymphocytes % (Manual) Monocytes % (Manual) Seg Neutrophils # 18.9 H Seg Neutrophils # Man Lymphocytes # (Manual) Monocytes # (Manual) Eosinophils # (Manual) Basophils # (Manual) PT INR D-Dimer ABG pH POC ABG pCO2 POC ABG pO2 ABG pO2 ABG HCO3 ABG O2 Saturation ABG Base Excess ABG Hemoglobin ABG Oxyhemoglobin ABG Potassium ABG Glucose Oxyhemoglobin Carboxyhemoglobin Sodium 146 H Potassium Chloride Carbon Dioxide 37 H BUN Creatinine < 0.2 L Glucose 118 H POC Glucose 111 H Calcium Ferritin Total Bilirubin Alkaline Phosphatase Lactate Dehydrogenase Troponin T C-Reactive Protein Total Protein Albumin 3.7 L Prealbumin LDL Cholesterol Direct Arterial Blood Glucose Arterial Blood Ionized Calcium Urine WBC (Auto) 03/07/20 03/07/20 03/07/20 05:20 17:45 23:32 WBC RBC Hgb Hct MCV MCH RDW Plt Count Lymph % (Auto) [place] # (Auto) Seg Neutrophils % Seg Neuts % (Manual) Lymphocytes % (Manual) Monocytes % (Manual) Seg Neutrophils # Seg Neutrophils # Man Lymphocytes # (Manual) Monocytes # (Manual) Eosinophils # (Manual) Basophils # (Manual) PT INR D-Dimer ABG pH POC ABG pCO2 POC ABG pO2 ABG pO2 ABG HCO3 ABG O2 Saturation ABG Base Excess ABG Hemoglobin ABG Oxyhemoglobin ABG Potassium ABG Glucose Oxyhemoglobin Carboxyhemoglobin Sodium Potassium Chloride Carbon Dioxide BUN Creatinine Glucose POC Glucose 113 H 124 H 210 H Calcium Ferritin Total Bilirubin Alkaline Phosphatase Lactate Dehydrogenase Troponin T C-Reactive Protein Total Protein Albumin Prealbumin LDL Cholesterol Direct Arterial Blood Glucose Arterial Blood Ionized Calcium Urine WBC (Auto) 03/08/20 03/08/20 03/08/20 05:35 06:43 06:43 WBC 28.9 H RBC 3.53 L Hgb 9.7 L Hct 30.3 L MCV MCH RDW 15.6 H Plt Count 578 H Lymph % (Auto) [place] # (Auto) Seg Neutrophils % Seg Neuts % (Manual) 93.0 H Lymphocytes % (Manual) 4.0 L Monocytes % (Manual) Seg Neutrophils # Seg Neutrophils # Man 26.9 H Lymphocytes # (Manual) Monocytes # (Manual) Eosinophils # (Manual) Basophils # (Manual) PT INR D-Dimer ABG pH POC ABG pCO2 POC ABG pO2 ABG pO2 ABG HCO3 ABG O2 Saturation ABG Base Excess ABG Hemoglobin ABG Oxyhemoglobin ABG Potassium ABG Glucose Oxyhemoglobin Carboxyhemoglobin Sodium 146 H Potassium Chloride Carbon Dioxide 35 H BUN 34 H Creatinine 0.3 L D Glucose 125 H POC Glucose 147 H Calcium Ferritin Total Bilirubin Alkaline Phosphatase Lactate Dehydrogenase Troponin T C-Reactive Protein Total Protein 5.9 L Albumin 3.2 L Prealbumin LDL Cholesterol Direct Arterial Blood Glucose Arterial Blood Ionized Calcium Urine WBC (Auto) 03/08/20 03/08/20 03/08/20 08:57 11:14 12:34 WBC RBC Hgb Hct MCV MCH RDW Plt Count Lymph % (Auto) [place] # (Auto) Seg Neutrophils % Seg Neuts % (Manual) Lymphocytes % (Manual) Monocytes % (Manual) Seg Neutrophils # Seg Neutrophils # Man Lymphocytes # (Manual) Monocytes # (Manual) Eosinophils # (Manual) Basophils # (Manual) PT INR D-Dimer ABG pH POC ABG pCO2 63.1 H POC ABG pO2 ABG pO2 ABG HCO3 ABG O2 Saturation ABG Base Excess ABG Hemoglobin 10.9 L ABG Oxyhemoglobin ABG Potassium ABG Glucose 176 H Oxyhemoglobin Carboxyhemoglobin Sodium Potassium Chloride Carbon Dioxide BUN Creatinine Glucose POC Glucose 171 H Calcium Ferritin Total Bilirubin Alkaline Phosphatase Lactate Dehydrogenase Troponin T C-Reactive Protein Total Protein Albumin Prealbumin LDL Cholesterol Direct Arterial Blood Glucose 176 H Arterial Blood Ionized Calcium 4.5 L Urine WBC (Auto) 10.0 H 03/08/20 03/08/20 03/09/20 18:02 23:43 05:49 WBC RBC Hgb Hct MCV MCH RDW Plt Count Lymph % (Auto) [place] # (Auto) Seg Neutrophils % Seg Neuts % (Manual) Lymphocytes % (Manual) Monocytes % (Manual) Seg Neutrophils # Seg Neutrophils # Man Lymphocytes # (Manual) Monocytes # (Manual) Eosinophils # (Manual) Basophils # (Manual) PT INR D-Dimer ABG pH POC ABG pCO2 POC ABG pO2 ABG pO2 ABG HCO3 ABG O2 Saturation ABG Base Excess ABG Hemoglobin ABG Oxyhemoglobin ABG Potassium ABG Glucose Oxyhemoglobin Carboxyhemoglobin Sodium Potassium Chloride Carbon Dioxide BUN Creatinine Glucose POC Glucose 157 H 134 H 163 H Calcium Ferritin Total Bilirubin Alkaline Phosphatase Lactate Dehydrogenase Troponin T C-Reactive Protein Total Protein Albumin Prealbumin LDL Cholesterol Direct Arterial Blood Glucose Arterial Blood Ionized Calcium Urine WBC (Auto) 03/09/20 03/09/20 03/09/20 08:35 08:35 12:11 WBC 23.4 H RBC 3.36 L Hgb 9.3 L Hct 28.8 L MCV MCH RDW 15.9 H Plt Count 521 H Lymph % (Auto) [place] # (Auto) Seg Neutrophils % Seg Neuts % (Manual) 87.0 H Lymphocytes % (Manual) 4.0 L Monocytes % (Manual) 9.0 H Seg Neutrophils # Seg Neutrophils # Man 20.4 H Lymphocytes # (Manual) 0.9 L Monocytes # (Manual) 2.1 H Eosinophils # (Manual) Basophils # (Manual) PT INR D-Dimer ABG pH POC ABG pCO2 POC ABG pO2 ABG pO2 ABG HCO3 ABG O2 Saturation ABG Base Excess ABG Hemoglobin ABG Oxyhemoglobin ABG Potassium ABG Glucose Oxyhemoglobin Carboxyhemoglobin Sodium 147 H Potassium Chloride Carbon Dioxide 37 H BUN 63 H Creatinine Glucose 154 H POC Glucose 128 H Calcium Ferritin Total Bilirubin Alkaline Phosphatase Lactate Dehydrogenase Troponin T C-Reactive Protein Total Protein Albumin Prealbumin LDL Cholesterol Direct Arterial Blood Glucose Arterial Blood Ionized Calcium Urine WBC (Auto) 03/09/20 03/10/20 03/10/20 17:51 00:25 05:41 WBC RBC Hgb Hct MCV MCH RDW Plt Count Lymph % (Auto) [place] # (Auto) Seg Neutrophils % Seg Neuts % (Manual) Lymphocytes % (Manual) Monocytes % (Manual) Seg Neutrophils # Seg Neutrophils # Man Lymphocytes # (Manual) Monocytes # (Manual) Eosinophils # (Manual) Basophils # (Manual) PT INR D-Dimer ABG pH POC ABG pCO2 POC ABG pO2 ABG pO2 ABG HCO3 ABG O2 Saturation ABG Base Excess ABG Hemoglobin ABG Oxyhemoglobin ABG Potassium ABG Glucose Oxyhemoglobin Carboxyhemoglobin Sodium Potassium Chloride Carbon Dioxide BUN Creatinine Glucose POC Glucose 127 H 128 H 153 H Calcium Ferritin Total Bilirubin Alkaline Phosphatase Lactate Dehydrogenase Troponin T C-Reactive Protein Total Protein Albumin Prealbumin LDL Cholesterol Direct Arterial Blood Glucose Arterial Blood Ionized Calcium Urine WBC (Auto) 03/10/20 03/10/20 03/10/20 06:14 06:14 12:02 WBC 18.3 H RBC 3.45 L Hgb 9.5 L Hct 29.5 L MCV MCH RDW 16.1 H Plt Count 494 H Lymph % (Auto) [place] # (Auto) Seg Neutrophils % Seg Neuts % (Manual) 95.0 H Lymphocytes % (Manual) 1.0 L Monocytes % (Manual) Seg Neutrophils # Seg Neutrophils # Man 17.4 H Lymphocytes # (Manual) 0.2 L Monocytes # (Manual) Eosinophils # (Manual) Basophils # (Manual) PT INR D-Dimer ABG pH POC ABG pCO2 POC ABG pO2 ABG pO2 ABG HCO3 ABG O2 Saturation ABG Base Excess ABG Hemoglobin ABG Oxyhemoglobin ABG Potassium ABG Glucose Oxyhemoglobin Carboxyhemoglobin Sodium 149 H Potassium Chloride Carbon Dioxide 35 H BUN 34 H Creatinine 0.2 L D Glucose 177 H POC Glucose 151 H Calcium Ferritin Total Bilirubin Alkaline Phosphatase Lactate Dehydrogenase Troponin T C-Reactive Protein Total Protein Albumin Prealbumin LDL Cholesterol Direct Arterial Blood Glucose Arterial Blood Ionized Calcium Urine WBC (Auto) 03/10/20 03/10/20 03/11/20 17:41 23:53 05:02 WBC RBC Hgb Hct MCV MCH RDW Plt Count Lymph % (Auto) [place] # (Auto) Seg Neutrophils % Seg Neuts % (Manual) Lymphocytes % (Manual) Monocytes % (Manual) Seg Neutrophils # Seg Neutrophils # Man Lymphocytes # (Manual) Monocytes # (Manual) Eosinophils # (Manual) Basophils # (Manual) PT INR D-Dimer ABG pH POC ABG pCO2 POC ABG pO2 ABG pO2 ABG HCO3 ABG O2 Saturation ABG Base Excess ABG Hemoglobin ABG Oxyhemoglobin ABG Potassium ABG Glucose Oxyhemoglobin Carboxyhemoglobin Sodium Potassium Chloride Carbon Dioxide BUN Creatinine Glucose POC Glucose 168 H 142 H 146 H Calcium Ferritin Total Bilirubin Alkaline Phosphatase Lactate Dehydrogenase Troponin T C-Reactive Protein Total Protein Albumin Prealbumin LDL Cholesterol Direct Arterial Blood Glucose Arterial Blood Ionized Calcium Urine WBC (Auto) 03/11/20 03/11/20 03/11/20 11:30 14:01 14:01 WBC 19.7 H RBC 3.04 L Hgb 8.7 L Hct 25.8 L MCV MCH RDW 15.6 H Plt Count Lymph % (Auto) [place] # (Auto) Seg Neutrophils % Seg Neuts % (Manual) Lymphocytes % (Manual) Monocytes % (Manual) Seg Neutrophils # Seg Neutrophils # Man Lymphocytes # (Manual) Monocytes # (Manual) Eosinophils # (Manual) Basophils # (Manual) PT INR D-Dimer ABG pH POC ABG pCO2 POC ABG pO2 ABG pO2 ABG HCO3 ABG O2 Saturation ABG Base Excess ABG Hemoglobin ABG Oxyhemoglobin ABG Potassium ABG Glucose Oxyhemoglobin Carboxyhemoglobin Sodium 151 H Potassium Chloride Carbon Dioxide 37 H BUN Creatinine < 0.2 L Glucose 171 H POC Glucose 248 H Calcium Ferritin Total Bilirubin Alkaline Phosphatase Lactate Dehydrogenase Troponin T C-Reactive Protein Total Protein Albumin Prealbumin LDL Cholesterol Direct Arterial Blood Glucose Arterial Blood Ionized Calcium Urine WBC (Auto) 03/11/20 03/11/20 03/12/20 17:09 23:52 04:39 WBC 19.9 H RBC 3.16 L Hgb 8.9 L Hct 27.5 L MCV MCH RDW 15.7 H Plt Count Lymph % (Auto) 6.8 L [place] # (Auto) 1.2 H Seg Neutrophils % 86.0 H Seg Neuts % (Manual) Lymphocytes % (Manual) Monocytes % (Manual) Seg Neutrophils # 17.1 H Seg Neutrophils # Man Lymphocytes # (Manual) Monocytes # (Manual) Eosinophils # (Manual) Basophils # (Manual) PT INR D-Dimer ABG pH POC ABG pCO2 POC ABG pO2 ABG pO2 ABG HCO3 ABG O2 Saturation ABG Base Excess ABG Hemoglobin ABG Oxyhemoglobin ABG Potassium ABG Glucose Oxyhemoglobin Carboxyhemoglobin Sodium Potassium Chloride Carbon Dioxide BUN Creatinine Glucose POC Glucose 124 H 131 H Calcium Ferritin Total Bilirubin Alkaline Phosphatase Lactate Dehydrogenase Troponin T C-Reactive Protein Total Protein Albumin Prealbumin LDL Cholesterol Direct Arterial Blood Glucose Arterial Blood Ionized Calcium Urine WBC (Auto) 03/12/20 03/12/20 03/12/20 04:39 05:28 11:34 WBC RBC Hgb Hct MCV MCH RDW Plt Count Lymph % (Auto) [place] # (Auto) Seg Neutrophils % Seg Neuts % (Manual) Lymphocytes % (Manual) Monocytes % (Manual) Seg Neutrophils # Seg Neutrophils # Man Lymphocytes # (Manual) Monocytes # (Manual) Eosinophils # (Manual) Basophils # (Manual) PT INR D-Dimer ABG pH POC ABG pCO2 POC ABG pO2 ABG pO2 ABG HCO3 ABG O2 Saturation ABG Base Excess ABG Hemoglobin ABG Oxyhemoglobin ABG Potassium ABG Glucose Oxyhemoglobin Carboxyhemoglobin Sodium 147 H Potassium Chloride Carbon Dioxide 40 H BUN Creatinine < 0.2 L Glucose 175 H POC Glucose 167 H 144 H Calcium Ferritin Total Bilirubin Alkaline Phosphatase Lactate Dehydrogenase Troponin T C-Reactive Protein Total Protein Albumin Prealbumin LDL Cholesterol Direct Arterial Blood Glucose Arterial Blood Ionized Calcium Urine WBC (Auto) 03/12/20 03/12/20 03/13/20 17:32 23:57 05:57 WBC RBC Hgb Hct MCV MCH RDW Plt Count Lymph % (Auto) [place] # (Auto) Seg Neutrophils % Seg Neuts % (Manual) Lymphocytes % (Manual) Monocytes % (Manual) Seg Neutrophils # Seg Neutrophils # Man Lymphocytes # (Manual) Monocytes # (Manual) Eosinophils # (Manual) Basophils # (Manual) PT INR D-Dimer ABG pH POC ABG pCO2 POC ABG pO2 ABG pO2 ABG HCO3 ABG O2 Saturation ABG Base Excess ABG Hemoglobin ABG Oxyhemoglobin ABG Potassium ABG Glucose Oxyhemoglobin Carboxyhemoglobin Sodium Potassium Chloride Carbon Dioxide BUN Creatinine Glucose POC Glucose 141 H 137 H 161 H Calcium Ferritin Total Bilirubin Alkaline Phosphatase Lactate Dehydrogenase Troponin T C-Reactive Protein Total Protein Albumin Prealbumin LDL Cholesterol Direct Arterial Blood Glucose Arterial Blood Ionized Calcium Urine WBC (Auto) 03/13/20 03/13/20 03/13/20 12:28 14:14 18:39 WBC RBC Hgb Hct MCV MCH RDW Plt Count Lymph % (Auto) [place] # (Auto) Seg Neutrophils % Seg Neuts % (Manual) Lymphocytes % (Manual) Monocytes % (Manual) Seg Neutrophils # Seg Neutrophils # Man Lymphocytes # (Manual) Monocytes # (Manual) Eosinophils # (Manual) Basophils # (Manual) PT INR D-Dimer ABG pH POC ABG pCO2 POC ABG pO2 ABG pO2 ABG HCO3 ABG O2 Saturation ABG Base Excess ABG Hemoglobin ABG Oxyhemoglobin ABG Potassium ABG Glucose Oxyhemoglobin Carboxyhemoglobin Sodium Potassium Chloride Carbon Dioxide 39 H BUN Creatinine < 0.2 L Glucose 129 H POC Glucose 130 H 125 H Calcium Ferritin Total Bilirubin Alkaline Phosphatase Lactate Dehydrogenase Troponin T C-Reactive Protein Total Protein Albumin Prealbumin LDL Cholesterol Direct Arterial Blood Glucose Arterial Blood Ionized Calcium Urine WBC (Auto) 03/13/20 03/14/20 03/14/20 23:33 05:24 08:07 WBC 16.8 H RBC 2.81 L Hgb 7.9 L Hct 23.9 L MCV MCH RDW 15.9 H Plt Count Lymph % (Auto) [place] # (Auto) Seg Neutrophils % Seg Neuts % (Manual) 84.0 H Lymphocytes % (Manual) 10.0 L Monocytes % (Manual) Seg Neutrophils # Seg Neutrophils # Man 14.1 H Lymphocytes # (Manual) Monocytes # (Manual) Eosinophils # (Manual) Basophils # (Manual) PT INR D-Dimer ABG pH POC ABG pCO2 POC ABG pO2 ABG pO2 ABG HCO3 ABG O2 Saturation ABG Base Excess ABG Hemoglobin ABG Oxyhemoglobin ABG Potassium ABG Glucose Oxyhemoglobin Carboxyhemoglobin Sodium Potassium Chloride Carbon Dioxide BUN Creatinine Glucose POC Glucose 146 H 125 H Calcium Ferritin Total Bilirubin Alkaline Phosphatase Lactate Dehydrogenase Troponin T C-Reactive Protein Total Protein Albumin Prealbumin LDL Cholesterol Direct Arterial Blood Glucose Arterial Blood Ionized Calcium Urine WBC (Auto) 03/14/20 03/14/20 03/14/20 08:07 12:21 18:26 WBC RBC Hgb Hct MCV MCH RDW Plt Count Lymph % (Auto) [place] # (Auto) Seg Neutrophils % Seg Neuts % (Manual) Lymphocytes % (Manual) Monocytes % (Manual) Seg Neutrophils # Seg Neutrophils # Man Lymphocytes # (Manual) Monocytes # (Manual) Eosinophils # (Manual) Basophils # (Manual) PT INR D-Dimer ABG pH POC ABG pCO2 POC ABG pO2 ABG pO2 ABG HCO3 ABG O2 Saturation ABG Base Excess ABG Hemoglobin ABG Oxyhemoglobin ABG Potassium ABG Glucose Oxyhemoglobin Carboxyhemoglobin Sodium Potassium Chloride 97.0 L Carbon Dioxide 37 H BUN Creatinine < 0.2 L Glucose 129 H POC Glucose 109 H 142 H Calcium 8.3 L Ferritin Total Bilirubin Alkaline Phosphatase Lactate Dehydrogenase Troponin T C-Reactive Protein Total Protein Albumin Prealbumin LDL Cholesterol Direct Arterial Blood Glucose Arterial Blood Ionized Calcium Urine WBC (Auto) 03/14/20 03/15/20 03/15/20 23:57 05:46 08:06 WBC 19.7 H RBC 3.29 L Hgb 9.1 L Hct 28.0 L MCV MCH RDW 15.9 H Plt Count Lymph % (Auto) [place] # (Auto) Seg Neutrophils % Seg Neuts % (Manual) Lymphocytes % (Manual) Monocytes % (Manual) Seg Neutrophils # Seg Neutrophils # Man Lymphocytes # (Manual) Monocytes # (Manual) Eosinophils # (Manual) Basophils # (Manual) PT INR D-Dimer ABG pH POC ABG pCO2 POC ABG pO2 ABG pO2 ABG HCO3 ABG O2 Saturation ABG Base Excess ABG Hemoglobin ABG Oxyhemoglobin ABG Potassium ABG Glucose Oxyhemoglobin Carboxyhemoglobin Sodium Potassium Chloride Carbon Dioxide BUN Creatinine Glucose POC Glucose 157 H 118 H Calcium Ferritin Total Bilirubin Alkaline Phosphatase Lactate Dehydrogenase Troponin T C-Reactive Protein Total Protein Albumin Prealbumin LDL Cholesterol Direct Arterial Blood Glucose Arterial Blood Ionized Calcium Urine WBC (Auto) 03/15/20 03/15/20 03/15/20 08:06 12:44 18:09 WBC RBC Hgb Hct MCV MCH RDW Plt Count Lymph % (Auto) [place] # (Auto) Seg Neutrophils % Seg Neuts % (Manual) Lymphocytes % (Manual) Monocytes % (Manual) Seg Neutrophils # Seg Neutrophils # Man Lymphocytes # (Manual) Monocytes # (Manual) Eosinophils # (Manual) Basophils # (Manual) PT INR D-Dimer ABG pH POC ABG pCO2 POC ABG pO2 ABG pO2 ABG HCO3 ABG O2 Saturation ABG Base Excess ABG Hemoglobin ABG Oxyhemoglobin ABG Potassium ABG Glucose Oxyhemoglobin Carboxyhemoglobin Sodium 136 L Potassium Chloride 93.6 L Carbon Dioxide 37 H BUN Creatinine < 0.2 L Glucose 132 H POC Glucose 151 H 164 H Calcium Ferritin Total Bilirubin Alkaline Phosphatase Lactate Dehydrogenase Troponin T C-Reactive Protein Total Protein Albumin Prealbumin LDL Cholesterol Direct Arterial Blood Glucose Arterial Blood Ionized Calcium Urine WBC (Auto) 03/15/20 03/16/20 03/16/20 23:26 05:39 11:58 WBC RBC Hgb Hct MCV MCH RDW Plt Count Lymph % (Auto) [place] # (Auto) Seg Neutrophils % Seg Neuts % (Manual) Lymphocytes % (Manual) Monocytes % (Manual) Seg Neutrophils # Seg Neutrophils # Man Lymphocytes # (Manual) Monocytes # (Manual) Eosinophils # (Manual) Basophils # (Manual) PT INR D-Dimer ABG pH POC ABG pCO2 POC ABG pO2 ABG pO2 ABG HCO3 ABG O2 Saturation ABG Base Excess ABG Hemoglobin ABG Oxyhemoglobin ABG Potassium ABG Glucose Oxyhemoglobin Carboxyhemoglobin Sodium Potassium Chloride Carbon Dioxide BUN Creatinine Glucose POC Glucose 136 H 116 H 109 H Calcium Ferritin Total Bilirubin Alkaline Phosphatase Lactate Dehydrogenase Troponin T C-Reactive Protein Total Protein Albumin Prealbumin LDL Cholesterol Direct Arterial Blood Glucose Arterial Blood Ionized Calcium Urine WBC (Auto) 03/16/20 03/17/20 03/17/20 23:56 04:40 04:40 WBC 18.0 H RBC 3.33 L Hgb 9.5 L Hct 28.8 L MCV MCH RDW 16.4 H Plt Count 499 H Lymph % (Auto) [place] # (Auto) Seg Neutrophils % Seg Neuts % (Manual) 82.0 H Lymphocytes % (Manual) 8.0 L Monocytes % (Manual) Seg Neutrophils # Seg Neutrophils # Man 14.8 H Lymphocytes # (Manual) Monocytes # (Manual) 1.3 H Eosinophils # (Manual) Basophils # (Manual) 0.2 H PT INR D-Dimer ABG pH POC ABG pCO2 POC ABG pO2 ABG pO2 ABG HCO3 ABG O2 Saturation ABG Base Excess ABG Hemoglobin ABG Oxyhemoglobin ABG Potassium ABG Glucose Oxyhemoglobin Carboxyhemoglobin Sodium Potassium Chloride 97.7 L Carbon Dioxide 32 H BUN Creatinine < 0.2 L Glucose 114 H POC Glucose 131 H Calcium Ferritin Total Bilirubin Alkaline Phosphatase Lactate Dehydrogenase Troponin T C-Reactive Protein Total Protein Albumin Prealbumin LDL Cholesterol Direct Arterial Blood Glucose Arterial Blood Ionized Calcium Urine WBC (Auto) Chest x-ray: pending Allied health notes reviewed: nursing
[2020-03-17] MEDS: LANSOPRAZOLE 30 MG SOLUTAB FEEDTUBE SCH (12:26)
[2020-03-17] MEDS: GLYCOPYRROLATE 2 MG TAB PO SCH ×2 (12:26→21:34)
[2020-03-17] MEDS: METOPROLOL TARTRATE 25 MG TAB PO SCH ×2 (12:26→21:34)
[2020-03-17] MEDS: TAMSULOSIN 0.4 MG CAP PO SCH (12:26)
[2020-03-17] MEDS: DOCUSATE SODIUM 100 MG/10 ML ORAL LIQD PO SCH ×2 (12:26→21:34)
[2020-03-17] MEDS ORDERED: ceFAZolin/Water 2 GM/20 ML 2 GM/20 ML SYRINGE IV ONE (14:03)
[2020-03-17] MEDS ORDERED: SODIUM CHLORIDE 0.9% 1000 ML 1,000 ML ONE (14:14)
[2020-03-17] MEDS ORDERED: SODIUM CHLORIDE 0.9% 1000 ML 1,000 ML IV SCH (14:30)
[2020-03-17] MEDS ORDERED: propofoL 200 MG/20 ML VIAL IV ONE ×2 (14:30)
--- NOTE | 2020-03-17 15:19 | Anesthesia Consultation ---
Anesthesia Consult and Med Hx Date of service: 03/17/20 - Airway Anesthetic Teeth Evaluation: Good ROM Head & Neck: Adequate Mental/Hyoid Distance: Adequate Mallampati Class: Class II Intubation Access Assessment: Probably Good - Pre-Operative Health Status ASA Pre-Surgery Classification: ASA4 Proposed Anesthetic Plan: MAC - Pulmonary Hx Asthma: No Hx Respiratory Symptoms: Yes (Acute resp failure, s/p tracheostomy) SOB: Yes COPD: No Home Oxygen Therapy: Yes Hx Pneumonia: Yes - Central Nervous System Hx Neuromuscular Disorder: Yes (Advance ALS) - Gastrointestinal Hx Gastroesophageal Reflux Disease: Yes (dysphagea) - Endocrine Hx End Stage Renal Disease: No - Additional Comments Anesthesia Medical History Comments: covid(-) on admission
--- NOTE | 2020-03-17 15:20 | Operative Report ---
Operative Report Operative Report: Date of procedure:03/17/2020 Pre procedure diagnosis: Inability to swallow, failure to thrive Post procedure diagnosis: same Procedure: Esophagogastroduodenoscopy with percutaneous endoscopic gastrostomy Endoscopist: Efren José MD (Jenny) Medications: Per anesthesia- see separate records for details./ancef IV 2 g. Complications: none Estimated blood loss: None After careful discussion of the nature and purpose of the procedure, details of the technique, risks, benefits and alternatives consent was obtained from patient's family. The patient was placed in the left lateral decubitus position and medicated by anesthesia- see separate records for details. The tip of the olympus video upper scope was passed per orum under direct view through the mouth and into the esophagus, stomach and duodenum. The scope was advanced to the third portion of the duodenum without difficulty. The third portion and second portion of the duodenum were normal. The bulb revealed normal mucosa. The scope was withdrawn back into the stomach and the stomach gently insufflated with air. The antrum revealed normal mucosa. The scope was then retroflexed and partially withdrawn to inspect the proximal stomach. The cardia, fundus and body were normal. The stomach was insufflated and a suitable gastrostomy site selected by transillumination and percutaneous compression demonstrating good opposition of the stomach and abdominal wall. The abdomen was prepped and draped in sterile f ashion and 1% lidocaine instilled at the optimal site. A small incision was made and the tissue spread with sterile hemostats. The needle and catheter were inserted percutaneously into the stomach without difficulty under direct view. The needle was withdrawn followed by insertion of the guidewire through the catheter. The guidewire was grasped by the snare and positioned by withdrawal of the scope. A [employer] 20 gauge gastrostomy tube was pulled into place from the abdominal side of the wire to a snug fitat 3 cm at the skin. The external bumper was applied and the site again dressed in sterile fashion. The scope was then withdrawn in the forward view. The EG junction was at 40 cm.There was a small hiatal hernia.The rest of theesophagus revealed normal mucosa throughout. The procedure was well tolerated and the patient was observed in the GI recovery unit. IMPRESSION: S/p Percutaneous Endoscopic gastrostomy. Plan:1. Start tube feeds in 6 hours. Keep head of bed elevated. Aspiration precautions. Efren Villagran (Yanet) MD [facility]
--- NOTE | 2020-03-17 15:20 | Post Anesthesia Evaluation ---
- Post Anesthesia Evaluation Patient Participated: No Airway Patent: Yes Stable Respiratory Function: Yes Nausea/Vomiting: No Temp > 96.8F: Yes Pain Manageable: Yes Adequeate Hydration: Yes Anesthesia Complications: No Patient on Ventilator: Yes
--- NOTE | 2020-03-17 15:20 | Anesthesia Day of Surgery ---
Anesthesia Day of Surgery - Day of Surgery Patient Examined: Yes Patient H&P Reviewed: Yes Patient is NPO: Yes
--- NOTE | 2020-03-17 15:46 | Progress Note ---
Assessment and Plan --Acute hypoxic hypercapnic respiratory failure; Intubated on mechanical ventilation. Etiology secondary to sepsis, ALS, multifocal pneumonia (Covid negative). S/p trach placement 03/07/20 --Dysphagia, status post PEG placement for tube feeding --ALS; Chronic Continue to provide supportive care --Elevated D-dimers; CTA chest, lower extremity venous Doppler both are negative Lovenox for DVT prophylaxis --Bilateral pneumonia; probably community-acquired Continue cefepime and vancomycin ID recommendations appreciated --Sepsis secondary to pneumonia Continue cefepime and vancomycin --Elevated troponin; Serial cardiac enzymes, serial EKGs Echocardiogram, cardiology consult if needed --Hypernatremia Trend sodium Free water via feeding tube --Abdominal distention due to bladder outlet obstruction, resolved CT abdomen showed bladder outlet obstruction, urology consulted s/p drake placement by urology on 03/09 --Hypotension possibly from septic shock and bladder outlet obstruction improved following placing drake --Hypernatremia due to hypovolumia free water with TF and place on 1/2NS --DVT prophylaxis; Lovenox The high probability of a clinically significant, sudden or life threatening deterioration of the [cardiac, renal and respiratory] system(s) required my full and direct attention, intervention and personal management. The aggregate critical care time was [34] minutes. This time is in addition to time spent performing reported procedures but includes the following: [x] Data Review and interpretation [x] Patient assessment and monitoring of vital signs [x] Documentation [x] Medication orders and management Brief history: 59-year-old male patient with significant past medical history of ALS, presented to ED with worsening shortness of breath since the morning [employer]. Patient was on a trilogy machine for breathing 18/11. EMS arrived, patient had O2 sats in the 80s. EMS attempted to place patient on their CPAP machine, however patient did not tolerate. Patient was admitted to the ICU with diagnosis of acute hypoxic respiratory failure and placed on BiPAP. Patient initially tolerated but later deteriorated with respiratory status. CTA chest showed no PE but significant for bilateral pneumonia. Doppler ultrasound also negative for DVT. COVID-19 test ordered. Due to persistent hypoxia, patient was intubated on 02/26/2020 at 1500. Patient now on mechanical ventilation in the ICU s/p trach placement today. Daily course: 02/26/2020. Blood cultures are negative x48 hours and Covid testing negative as well. Continue antibiotics per ID recommendations for community-acquired bilateral pneumonia. Cardiology consultation for elevated troponin. Check echocardiogram. 02/27/2020. Events of yesterday noted with asystole following V. fib arrest. Patient currently on AC mode rate 20, tidal volume 400, FiO2 50% and a PEEP of 6. Follow-up echocardiogram for elevated troponin. Cardiology suspects NSTEMI Type 2 in the setting of acute resp failure. Chest CTA and BLE Dopplers neg. we will discontinue Decadron given the Covid PCR is negative. 02/28/2020. Spoke with the sister Felisa Eli who is the power of shield installer regarding advanced directives and she instructed me that she would like to continue with aggressive care at this time. I informed her of the guarded prognosis and high mortality/morbidity and she voiced understanding. Patient currently with AC mode ventilation rate 18, tidal volume 400, FiO2 40% and a PEEP of 6. Continue antibiotics for pneumonia. ID previously consulted. Also consult neurology with regards to ALS. 02/29/2020; patient is intubated and on CPAP patient is alert and oriented. Patient has ALS. Dr. Álvarez spoke with his sister and she wants aggressive care. Continue antibiotics for pneumonia. Neurology consulted for ALS. Prognosis poor 03/01/2020; patient is intubated and on CPAP, patient is alert and oriented. I spoke with his 2 sisters about the management plan. 03/02/2020; patient is intubated and on CPAP. Patient was alert and oriented. I spoke with Dr. mohr and he thinks patient may need mechanical ventilation, likely his disease progressed. Dr. Flowers did debridement this m orning. 03/03/2020; patient is intubated and on CPAP, patient was on trilogy and BiPAP at home. Patient has ALS. on spontaneous breathing trial. Patient is alert and oriented but quadriplegic. Patient has severe bilateral pneumonia and is on cefepime and Vanco, ID is following. Patient has sacral decubitus ulcer and debridement was done by Dr. Flowers and there is no osteomyelitis. 03/05. Patient still on broad-spectrum antibiotics. Status post sacral decubitus ulcer debridements-no osteomyelitis. Patient is on AC 25/400/30% PEEP 5. No blood gas results today. 03/06. Plan for tracheostomy by surgery. Still remains intubated. Labs reviewed-sodium 150. Started on free water 200 every 8hr. trend sodium. 03/07: s/p trach placement today, patient placed back on mechanical ventilation with trach. Plan to resume tube feeding with NG tube. Continue to monitor vitals, monitor BMP. 03/08: Patient noted to have distended abdomen with low urinary output. Obtain bladder scan rule out urine retention, UA and urine culture, continue to follow clinically. 03/09: Patient noted to have low blood pressure with SBP as low as 70s. Ordered for 500 mils normal saline bolus. CT abdomen showed bladder outlet obstruction, urology consulted. 03/10: placed on drake by urology o/n, improved urine outpt. cont to monitor BMP. resuded TF - cont free water with TF. wean off from vent as tolerated. 03/11: Vitals stable. cont TF, wean off from vent as tolerated. start on 1/2 NS for hypernatremia - follow BMP 03/12: wean off vent as tolerated, plan for speech eval, cont Tf for now, cont iv fluid 03/13: unable to wean off from vent, unable to do speech therapy eval. will need PEG tube, cont supportive care for now, cont NG tube feeding 03/14: consulted GI for PEg placemnet, cont supportive care. remains on vent at night 03/15: Discussed with GI, plan for PEG tube placement possibly tomorrow. Continue supportive care and wean off from vent as tolerated. Hold Lovenox dose tonight. 03/16: family didnot consent for PEG placement yesterday. I spoke with the daughter today and she is now agreeable for PEG tube. I explained the necessity of the procedure with RN to the patient also and he nodded yes for the procedure. will cont supportive care. planned for PEG tube placement tomorrow. 03/17: s/p PEG placement today, patient tolerated well. Continue supportive ca re Subjective Date of service: 03/17/20 Principal diagnosis: Ac on Ch Hypercapnic & hypoxemic Resp Failure; Severe Sepsis; Jamar PNA; ALS Interval history: Patient seen and examined Remains on mechanical ventilation with trach tube Discussed with RN at the bedside Vitals reviewed -BP stable Had PEG placement today Objective - Exam Narrative Exam: GENERAL: Awake. Intubated with trach tube HEAD: No signs of head trauma. EYES: Pupils are equal. Extraocular motions intact. EARS: Hearing grossly intact. MOUTH: Oropharynx is normal. NECK: No adenopathy, no JVD. CHEST: Coarse breath sounds bilaterally CARDIAC: Regular rate and rhythm. S1 and S2, without murmurs, gallops, or rubs. VASCULAR: No Edema. Peripheral pulses normal and equal in all extremities. ABDOMEN: Soft, non tender and nondistended. Bowel Sounds normal. PEG in place NEUROLOGIC EXAM: Awake, paraplegic SKIN: No obvious lesions - Constitutional Vitals: Vital Signs - 12hr 03/17/20 03/17/20 03/17/20 03:51 04:00 04:15 Temperature 99.5 F Pulse Rate 96 H 97 H Pulse Rate [ 101 H From Monitor] Respiratory 16 17 Rate Blood Pressure 136/95 136/95 O2 Sat by Pulse 98 97 Oximetry O2 Sat by Pulse Oximetry [ Assessment] 03/17/20 03/17/20 03/17/20 04:30 04:37 04:45 Temperature Pulse Rate 101 H 104 H 94 H Pulse Rate [ From Monitor] Respiratory 13 15 Rate Blood Pressure 129/94 129/94 129/94 O2 Sat by Pulse 96 95 97 Oximetry O2 Sat by Pulse Oximetry [ Assessment] 03/17/20 03/17/20 03/17/20 05:00 05:15 05:30 Temperature Pulse Rate 97 H 93 H 94 H Pulse Rate [ From Monitor] Respiratory 13 13 12 Rate Blood Pressure 129/92 129/92 134/91 O2 Sat by Pulse 95 97 98 Oximetry O2 Sat by Pulse Oximetry [ Assessment] 03/17/20 03/17/20 03/17/20 05:45 06:00 06:15 Temperature Pulse Rate 96 H 102 H 106 H Pulse Rate [ From Monitor] Respiratory 14 19 15 Rate Blood Pressure 134/91 133/93 134/91 O2 Sat by Pulse 97 97 98 Oximetry O2 Sat by Pulse Oximetry [ Assessment] 03/17/20 03/17/20 03/17/20 06:30 06:45 07:00 Temperature Pulse Rate 95 H 94 H 99 H Pulse Rate [ From Monitor] Respiratory 13 13 14 Rate Blood Pressure 118/80 133/93 124/82 O2 Sat by Pulse 97 96 97 Oximetry O2 Sat by Pulse Oximetry [ Assessment] 03/17/20 03/17/20 03/17/20 07:15 07:30 07:45 Temperature Pulse Rate 92 H 92 H 92 H Pulse Rate [ From Monitor] Respiratory 14 17 13 Rate Blood Pressure 118/80 130/83 130/83 O2 Sat by Pulse 97 98 98 Oximetry O2 Sat by Pulse Oximetry [ Assessment] 03/17/20 03/17/20 03/17/20 08:00 08:15 08:30 Temperature 98.6 F Pulse Rate 94 H 101 H 90 Pulse Rate [ 94 H From Monitor] Respiratory 15 13 13 Rate Blood Pressure 120/87 130/83 128/83 O2 Sat by Pulse 99 99 98 Oximetry O2 Sat by Pulse 99 Oximetry [ Assessment] 03/17/20 03/17/20 03/17/20 08:45 09:00 09:15 Temperature Pulse Rate 101 H 102 H 103 H Pulse Rate [ From Monitor] Respiratory 16 14 14 Rate Blood Pressure 120/87 123/85 128/83 O2 Sat by Pulse 100 99 99 Oximetry O2 Sat by Pulse Oximetry [ Assessment] 03/17/20 03/17/20 03/17/20 09:30 09:45 10:00 Temperature Pulse Rate 96 H 92 H Pulse Rate [ From Monitor] Respiratory 13 17 Rate Blood Pressure 120/82 120/82 O2 Sat by Pulse 99 91 95 Oximetry O2 Sat by Pulse Oximetry [ Assessment] 03/17/20 03/17/20 03/17/20 10:01 10:15 10:30 Temperature Pulse Rate 87 86 100 H Pulse Rate [ From Monitor] Respiratory 13 13 17 Rate Blood Pressure 113/77 113/77 122/81 O2 Sat by Pulse 96 97 93 Oximetry O2 Sat by Pulse Oximetry [ Assessment] 03/17/20 03/17/20 03/17/20 10:45 11:00 11:15 Temperature Pulse Rate 97 H 107 H 101 H Pulse Rate [ From Monitor] Respiratory 14 16 12 Rate Blood Pressure 122/81 131/94 131/94 O2 Sat by Pulse 95 97 93 Oximetry O2 Sat by Pulse Oximetry [ Assessment] 03/17/20 03/17/20 03/17/20 11:30 11:45 12:00 Temperature 98.5 F Pulse Rate 108 H 99 H 94 H Pulse Rate [ 101 H From Monitor] Respiratory 25 H 18 14 Rate Blood Pressure 145/98 145/98 132/94 O2 Sat by Pulse 82 L 90 94 Oximetry O2 Sat by Pulse Oximetry [ Assessment] 03/17/20 03/17/20 03/17/20 12:05 12:15 12:26 Temperature Pulse Rate 109 H 102 H 103 H Pulse Rate [ From Monitor] Respiratory 19 Rate Blood Pressure 121/89 132/94 O2 Sat by Pulse 97 96 Oximetry O2 Sat by Pulse Oximetry [ Assessment] 03/17/20 03/17/20 03/17/20 12:30 12:45 13:00 Temperature Pulse Rate 100 H 103 H 102 H Pulse Rate [ From Monitor] Respiratory 18 13 13 Rate Blood Pressure 135/94 135/94 124/91 O2 Sat by Pulse 96 98 99 Oximetry O2 Sat by Pulse Oximetry [ Assessment] 03/17/20 03/17/20 03/17/20 13:15 13:30 13:45 Temperature Pulse Rate 106 H 111 H 117 H Pulse Rate [ From Monitor] Respiratory 15 17 21 Rate Blood Pressure 124/91 131/96 131/96 O2 Sat by Pulse 99 96 91 Oximetry O2 Sat by Pulse Oximetry [ Assessment] 03/17/20 03/17/20 03/17/20 14:00 14:15 14:30 Temperature Pulse Rate 107 H 104 H 114 H Pulse Rate [ From Monitor] Respiratory 13 13 16 Rate Blood Pressure 121/89 121/89 127/90 O2 Sat by Pulse 92 93 97 Oximetry O2 Sat by Pulse Oximetry [ Assessment] 03/17/20 03/17/20 14:45 15:00 Temperature Pulse Rate 116 H 108 H Pulse Rate [ From Monitor] Respiratory 13 12 Rate Blood Pressure 77/49 111/80 O2 Sat by Pulse 96 96 Oximetry O2 Sat by Pulse Oximetry [ Assessment] - Labs CBC & Chem 7: 03/19/20 08:05 03/19/20 08:05 Labs: Abnormal lab results 03/16/20 03/17/20 03/17/20 Range/Units 23:56 04:40 04:40 WBC 18.0 H (4.5-11.0) K/mm3 RBC 3.33 L (3.65-5.03) M/mm3 Hgb 9.5 L (11.8-15.2) gm/dl Hct 28.8 L (35.5-45.6) % RDW 16.4 H (13.2-15.2) % Plt Count 499 H (140-440) K/mm3 Seg Neuts % (Manual) 82.0 H (40.0-70.0) % Lymphocytes % (Manual) 8.0 L (13.4-35.0) % Seg Neutrophils # Man 14.8 H (1.8-7.7) K/mm3 Monocytes # (Manual) 1.3 H (0.0-0.8) K/mm3 Basophils # (Manual) 0.2 H (0.0-0.1) K/mm3 Chloride 97.7 L (98-107) mmol/L Carbon Dioxide 32 H (22-30) mmol/L Creatinine < 0.2 L (0.8-1.3) mg/dL Glucose 114 H (75-100) mg/dL POC Glucose 131 H (70-105) mg/dL HEART Score - HEART Score Troponin: Troponin T 0.034 ng/mL (0.00-0.029) H D 02/24/20 19:35
[2020-03-17] MEDS: MORPHINE 2 MG/1 ML INJ IV PRN ×2 (17:24→23:01)
[2020-03-17] MEDS: POLYETHYLENE GLYCOL 3350 17 GM POWDER PO SCH (21:34)
[2020-03-18] MEDS: GLYCOPYRROLATE 2 MG TAB PO SCH ×2 (09:05→14:50)
[2020-03-18] MEDS: LANSOPRAZOLE 30 MG SOLUTAB FEEDTUBE SCH (09:24)
[2020-03-18] MEDS: DOCUSATE SODIUM 100 MG/10 ML ORAL LIQD PO SCH (09:24)
[2020-03-18] MEDS: TAMSULOSIN 0.4 MG CAP PO SCH (09:24)
[2020-03-18] MEDS: METOPROLOL TARTRATE 25 MG TAB PO SCH ×3 (09:25→22:08)
[2020-03-18] MEDS: SCOPOLAMINE TRANSDERMAL PATCH 72 HR TD SCH (09:26)
[2020-03-18] MEDS: MORPHINE 2 MG/1 ML INJ IV PRN ×2 (09:32→18:15)
--- NOTE | 2020-03-18 11:09 | Gastroenterology Progress Note ---
Assessment and Plan a 59 yo male with pmh of ALS admitted on 02/24/2020 for respiratory failure for bilateral pneumonia. Hospital course complicated respiratory failure, NSTEMI, s/p sacral wound debridement, s/p trach on 03/07 due to inability to wean off the vent. GI consulted for PEG tube placement. # Dysphagia # ALS # Respiratory failure - currently vent dependent with trach (placed on 03/07/2020) with b/l pneumonia and underlying condition of ALS. - s/p EGD with PEG placement on 03/17/2020. Tolerating tube feeds well. - Bumper loosened this AM. - Keep head of bed elevated. - will sign off. Subjective Principal diagnosis: Ac on Ch Hypercapnic & hypoxemic Resp Failure; Severe Sepsis; Jamar PNA; ALS Interval history: s/p PEG placement on 03/17/2020. Tolerating tube feeds well. Objective - Constitutional Vitals: Temp Pulse Resp BP Pulse Ox 98.8 F 102 H 19 125/80 98 03/18/20 02:55 03/18/20 09:25 03/18/20 09:32 03/18/20 09:25 03/18/20 07:45 General appearance: no acute distress - EENT ENT: hearing intact - Respiratory Respiratory effort: other (on the vent via trach) - Cardiovascular Rhythm: regular Heart Sounds: Present: S1 & S2 - Gastrointestinal General gastrointestinal: Present: soft, non-tender, non-distended, other (PEG in place) - Integumentary Integumentary: Present: clear, warm - Labs CBC & Chem 7: 03/17/20 04:40 03/17/20 04:40 Labs: Laboratory Results - last 24 hr 03/17/20 03/17/20 03/18/20 12:32 17:20 00:21 POC Glucose 99 82 124 H 03/18/20 05:21 POC Glucose 138 H
--- NOTE | 2020-03-18 12:18 | Progress Note ---
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 Respiratory Failure Severe Sepsis with Shock Bilateral Pneumonia (Possible aspiration) History of ALS on Trilogy Oropharyngeal Dysphagia s/p PEG Acute toxic metabolic encephalopathy-resolved Elevated D-dimer Elevated troponin possibly type 2 ischemia - continue daytime PSV as tolerated, ATP as tolerated. - repeat CXR in am - continue Robinul & scopolamine for secretion control - Keep K at 4, Mg at 2 and Phos at 2.5 to optimize respiratory muscle function - wound care per RN/WCN, off loading, frequent turning, mobility per facility protocol - continue Scopolamine patch for secretion control - wean supplemental oxygen for target O2 sat's > 92% acutely - bronchodilators with pulmonary hygiene per RT - VAP bundle addressed, aspiration precautions, HOB >40 - continue lung protective strategies - continue bronchodilators with pulmonary hygiene per RT - wean per pulmonary driven protocols otherwise - sedation prn for target RASS 0 to -1 - s/p empiric antiinfectives per ID rec's (Rocephin and Zithromax) - enteral nutrition at goal rate as tolerated - accuchecks with glycemic control per SSI (While critically ill target blood glucose of 140-180 mg/dL; avoid hypoglycemia) - avoid nephrotoxins, renally dose all medications - avoid benzodiazepines, reduce the possibility of delirium - prn analgesia per CPOT score - Maintenance of sleep-wake cycle, avoid delirium - G.I. & VTE prophylaxis (Prevacid. Will add Enoxaparin) -Reardon in place for urinary retention and sacral decubitus ulcer - PT/OT/ROM exercises - Monitor hemodynamics closely - continue other care per attending / other consultants - discharge planning ongoing concurrently- LTACH evaluation .... Re-evaluate in am & prn CONDITION: CRITICAL PROGNOSIS: GUARDED CODE STATUS: FULL CODE The high probability of a clinically significant, sudden or life-threatening deterioration of the [respiratory, cardiovascular & neurologic] system(s) required my full and direct attention, intervention and personal management. The aggregate critical care time was [31] minutes without overlap. Time includes spent on; [x] Data Review and interpretation [x] Patient assessment and monitoring of vital signs [x] Documentation [x] Medication orders and management Subjective Date of service: 03/18/20 Principal diagnosis: Ac on Ch Hypercapnic & hypoxemic Resp Failure; Severe Sepsis; Jamar PNA; ALS Interval history: Patient is seen today for: Acute on Chronic Hypercapnic & hypoxemic Respiratory Failure; Severe Sepsis with Shock; Bilateral Pneumonia (Possible aspiration); History of ALS on Trilogy; PUI-COVID; Acute toxic metabolic encephalopathy Seen and examined at bedside; 24hour events reviewed; nursing and respiratory care staff consulted; no adverse overnight events reported to me; resting in bed; remains on MVS; s/p PEG placement yesterday, tolerating tube feedings. Tolerating PSV at the bedside. No fevers, no diarrhea, no vomiting. When I mentioned "t-piece trial", he mouthed "no, can't breathe" Objective Vital Signs - 12hr 03/18/20 03/18/20 03/18/20 00:30 00:45 01:00 Temperature Pulse Rate 94 H 95 H 92 H Pulse Rate [ From Monitor] Respiratory 21 17 15 Rate Blood Pressure 120/85 121/83 121/84 O2 Sat by Pulse 99 99 99 Oximetry 03/18/20 03/18/20 03/18/20 01:15 01:30 01:45 Temperature Pulse Rate 100 H 100 H 102 H Pulse Rate [ From Monitor] Respiratory 23 25 H 23 Rate Blood Pressure 123/86 122/88 123/89 O2 Sat by Pulse 99 99 99 Oximetry 03/18/20 03/18/20 03/18/20 02:00 02:15 02:30 Temperature Pulse Rate 100 H 97 H 102 H Pulse Rate [ From Monitor] Respiratory 24 22 19 Rate Blood Pressure 121/89 126/89 126/89 O2 Sat by Pulse 99 99 99 Oximetry 03/18/20 03/18/20 03/18/20 02:45 02:55 03:00 Temperature 98.8 F Pulse Rate 98 H 103 H Pulse Rate [ From Monitor] Respiratory 14 15 Rate Blood Pressure 131/87 125/93 O2 Sat by Pulse 99 99 Oximetry 03/18/20 03/18/20 03/18/20 03:13 03:15 03:30 Temperature Pulse Rate 100 H 100 H 96 H Pulse Rate [ From Monitor] Respiratory 15 27 H Rate Blood Pressure 125/90 131/92 121/85 O2 Sat by Pulse 99 99 98 Oximetry 03/18/20 03/18/20 03/18/20 03:45 04:00 04:15 Temperature Pulse Rate 90 100 H 98 H Pulse Rate [ 91 H From Monitor] Respiratory 14 20 21 Rate Blood Pressure 128/88 133/93 131/89 O2 Sat by Pulse 99 99 99 Oximetry 03/18/20 03/18/20 03/18/20 04:30 04:45 05:00 Temperature Pulse Rate 90 95 H 97 H Pulse Rate [ From Monitor] Respiratory 15 24 21 Rate Blood Pressure 130/88 129/94 132/93 O2 Sat by Pulse 99 99 99 Oximetry 03/18/20 03/18/20 03/18/20 05:15 05:30 05:45 Temperature Pulse Rate 101 H 97 H 100 H Pulse Rate [ From Monitor] Respiratory 20 16 15 Rate Blood Pressure 134/92 134/92 143/93 O2 Sat by Pulse 99 99 99 Oximetry 03/18/20 03/18/20 03/18/20 06:00 06:15 06:30 Temperature Pulse Rate 104 H 106 H 101 H Pulse Rate [ From Monitor] Respiratory 17 19 14 Rate Blood Pressure 133/90 131/88 122/87 O2 Sat by Pulse 99 99 99 Oximetry 03/18/20 03/18/20 03/18/20 06:45 07:00 07:15 Temperature Pulse Rate 118 H 90 97 H Pulse Rate [ From Monitor] Respiratory 21 14 15 Rate Blood Pressure 113/81 119/77 127/84 O2 Sat by Pulse 98 98 97 Oximetry 03/18/20 03/18/20 03/18/20 07:30 07:42 07:45 Temperature Pulse Rate 88 83 91 H Pulse Rate [ From Monitor] Respiratory 13 13 Rate Blood Pressure 109/71 117/84 117/84 O2 Sat by Pulse 99 99 98 Oximetry 03/18/20 03/18/20 03/18/20 08:00 08:15 08:30 Temperature Pulse Rate 114 H 89 100 H Pulse Rate [ 99 H From Monitor] Respiratory 10 L 12 11 L Rate Blood Pressure 123/90 117/77 112/80 O2 Sat by Pulse 100 98 98 Oximetry 03/18/20 03/18/20 03/18/20 08:45 09:00 09:15 Temperature Pulse Rate 95 H 104 H 102 H Pulse Rate [ From Monitor] Respiratory 11 L 16 19 Rate Blood Pressure 112/78 121/83 122/83 O2 Sat by Pulse 99 99 98 Oximetry 03/18/20 03/18/20 03/18/20 09:25 09:30 09:32 Temperature Pulse Rate 102 H 101 H Pulse Rate [ From Monitor] Respiratory 20 19 Rate Blood Pressure 125/80 123/82 O2 Sat by Pulse 98 Oximetry 03/18/20 03/18/20 03/18/20 09:45 10:00 10:02 Temperature Pulse Rate 105 H 103 H Pulse Rate [ From Monitor] Respiratory 18 17 16 Rate Blood Pressure 116/84 122/78 O2 Sat by Pulse 97 97 Oximetry 03/18/20 03/18/20 03/18/20 10:15 10:30 10:45 Temperature Pulse Rate 93 H 93 H 95 H Pulse Rate [ From Monitor] Respiratory 14 21 20 Rate Blood Pressure 115/78 117/77 123/77 O2 Sat by Pulse 97 98 98 Oximetry 03/18/20 03/18/20 03/18/20 11:00 11:15 11:23 Temperature Pulse Rate 98 H 90 92 H Pulse Rate [ From Monitor] Respiratory 19 25 H 26 H Rate Blood Pressure 115/77 119/75 120/80 O2 Sat by Pulse 98 98 98 Oximetry 03/18/20 11:42 Temperature Pulse Rate Pulse Rate [ 94 H From Monitor] Respiratory 16 Rate Blood Pressure O2 Sat by Pulse 100 Oximetry Constitutional: no acute distress, other (thin middle aged male with normal respiratory effort at rest on MVS) Eyes: non-icteric ENT: oropharynx moist, other (S/P Tracheostomy) Neck: supple, no lymphadenopathy, no JVD Effort: mildly labored Ascultation: Bilateral: clear, diminished breath sounds, wheezes, rhonchi (and referred upper airway sounds) Percussion: Bilateral: not dull Cardiovascular: regular rate and rhythm, other (S1,S2, no murmurs) Gastrointestinal: normoactive bowel sounds, soft, non-tender, non-distended, other (+ distended but non tender suprapubis) Integumentary: normal, decubitus ulcer (sacral / gluteal) Extremities: no cyanosis, no edema, pulses normal, other (atrophic looking limbs) Neurologic: pupils equal and round, other (motor strength in extremities 1-2/5, awkae, alert, mouths words to make needs known) Psychiatric: depressed CBC and BMP: 03/19/20 08:05 03/19/20 08:05 ABG, PT/INR, D-dimer: ABG ABG pH 7.371 (7.320-7.450) 03/08/20 12:34 POC ABG pCO2 63.1 mmHg (32.0-48.0) H 03/08/20 12:34 ABG pCO2 60.1 mm Hg 03/06/20 04:34 POC ABG pO2 90.5 mmHg (83-108) 03/08/20 12:34 ABG pO2 88.6 mm Hg (80.0-90.0) 03/06/20 04:34 POC ABG HCO3 35.7 03/08/20 12:34 ABG O2 Saturation 97.0 % (95.0-99.0) 03/06/20 04:34 PT/INR, D-dimer PT 15.6 Sec. (12.2-14.9) H 02/24/20 09:19 INR 1.21 (0.87-1.13) H 02/24/20 09:19 D-Dimer 1311.96 ng/mlDDU (0-234) H 02/24/20 09:19 Abnormal lab findings: Abnormal Labs 02/24/20 02/24/20 02/24/20 09:19 09:19 09:19 WBC 20.2 H RBC 5.05 H Hgb Hct MCV MCH RDW 15.3 H Plt Count Lymph % (Auto) [place] # (Auto) Seg Neutrophils % Seg Neuts % (Manual) 86.0 H Lymphocytes % (Manual) 1.0 L Monocytes % (Manual) Seg Neutrophils # Seg Neutrophils # Man 17.4 H Lymphocytes # (Manual) 0.2 L Monocytes # (Manual) Eosinophils # (Manual) Basophils # (Manual) PT 15.6 H INR 1.21 H D-Dimer 1311.96 H ABG pH POC ABG pCO2 POC ABG pO2 ABG pO2 ABG HCO3 ABG O2 Saturation ABG Base Excess ABG Hemoglobin ABG Oxyhemoglobin ABG Potassium ABG Glucose Oxyhemoglobin Carboxyhemoglobin Sodium 135 L Potassium 3.2 L Chloride 92.2 L Carbon Dioxide BUN 6 L Creatinine < 0.2 L Glucose 124 H POC Glucose Calcium Ferritin Total Bilirubin 2.30 H Alkaline Phosphatase 132 H Lactate Dehydrogenase Troponin T 0.080 H C-Reactive Protein Total Protein Albumin 3.6 L Prealbumin LDL Cholesterol Direct 41 L Arterial Blood Glucose Arterial Blood Ionized Calcium Urine WBC (Auto) 02/24/20 02/24/20 02/24/20 09:19 09:58 10:01 WBC RBC Hgb Hct MCV MCH RDW Plt Count Lymph % (Auto) [place] # (Auto) Seg Neutrophils % Seg Neuts % (Manual) Lymphocytes % (Manual) Monocytes % (Manual) Seg Neutrophils # Seg Neutrophils # Man Lymphocytes # (Manual) Monocytes # (Manual) Eosinophils # (Manual) Basophils # (Manual) PT INR D-Dimer ABG pH 7.176 L* POC ABG pCO2 POC ABG pO2 ABG pO2 91.2 H ABG HCO3 ABG O2 Saturation ABG Base Excess -4.6 L ABG Hemoglobin ABG Oxyhemoglobin ABG Potassium ABG Glucose Oxyhemoglobin 92.6 L Carboxyhemoglobin Sodium Potassium Chloride Carbon Dioxide BUN Creatinine Glucose POC Glucose Calcium Ferritin 1715.0 H Total Bilirubin Alkaline Phosphatase Lactate Dehydrogenase 303 H Troponin T C-Reactive Protein 26.10 H Total Protein Albumin Prealbumin LDL Cholesterol Direct Arterial Blood Glucose Arterial Blood Ionized Calcium Urine WBC (Auto) 02/24/20 02/24/20 02/24/20 11:52 13:45 19:35 WBC RBC Hgb Hct MCV MCH RDW Plt Count Lymph % (Auto) [place] # (Auto) Seg Neutrophils % Seg Neuts % (Manual) Lymphocytes % (Manual) Monocytes % (Manual) Seg Neutrophils # Seg Neutrophils # Man Lymphocytes # (Manual) Monocytes # (Manual) Eosinophils # (Manual) Basophils # (Manual) PT INR D-Dimer ABG pH 7.051 L* 7.300 L POC ABG pCO2 POC ABG pO2 ABG pO2 94.7 H 75.1 L ABG HCO3 18.0 L ABG O2 Saturation 93.5 L ABG Base Excess -6.8 L -7.8 L ABG Hemoglobin 13.2 L 11.9 L ABG Oxyhemoglobin ABG Potassium ABG Glucose Oxyhemoglobin 91.0 L 92.7 L Carboxyhemoglobin Sodium Potassium Chloride Carbon Dioxide BUN Creatinine Glucose POC Glucose Calcium Ferritin Total Bilirubin Alkaline Phosphatase Lactate Dehydrogenase Troponin T 0.034 H D C-Reactive Protein Total Protein Albumin Prealbumin LDL Cholesterol Direct Arterial Blood Glucose Arterial Blood Ionized Calcium Urine WBC (Auto) 02/25/20 02/25/20 02/25/20 04:00 04:00 12:26 WBC 22.9 H RBC Hgb Hct MCV 83 L MCH 27 L RDW Plt Count 468 H Lymph % (Auto) [place] # (Auto) Seg Neutrophils % Seg Neuts % (Manual) 89.0 H Lymphocytes % (Manual) 7.0 L Monocytes % (Manual) Seg Neutrophils # Seg Neutrophils # Man 20.4 H Lymphocytes # (Manual) Monocytes # (Manual) Eosinophils # (Manual) Basophils # (Manual) PT INR D-Dimer ABG pH POC ABG pCO2 POC ABG pO2 ABG pO2 ABG HCO3 ABG O2 Saturation ABG Base Excess ABG Hemoglobin ABG Oxyhemoglobin ABG Potassium 2.6 L ABG Glucose 142 H Oxyhemoglobin Carboxyhemoglobin Sodium Potassium 3.2 L Chloride Carbon Dioxide 18 L BUN Creatinine 0.2 L Glucose 114 H POC Glucose Calcium Ferritin Total Bilirubin Alkaline Phosphatase Lactate Dehydrogenase Troponin T C-Reactive Protein Total Protein Albumin 3.5 L Prealbumin LDL Cholesterol Direct Arterial Blood Glucose 142 H Arterial Blood Ionized Calcium Urine WBC (Auto) 02/26/20 02/26/20 02/26/20 15:58 17:00 23:43 WBC RBC Hgb Hct MCV MCH RDW Plt Count Lymph % (Auto) [place] # (Auto) Seg Neutrophils % Seg Neuts % (Manual) Lymphocytes % (Manual) Monocytes % (Manual) Seg Neutrophils # Seg Neutrophils # Man Lymphocytes # (Manual) Monocytes # (Manual) Eosinophils # (Manual) Basophils # (Manual) PT INR D-Dimer ABG pH 7.502 H POC ABG pCO2 POC ABG pO2 213.6 H ABG pO2 ABG HCO3 ABG O2 Saturation ABG Base Excess ABG Hemoglobin ABG Oxyhemoglobin 99.2 H ABG Potassium 2.9 L ABG Glucose 160 H Oxyhemoglobin Carboxyhemoglobin 0.4 L Sodium Potassium Chloride Carbon Dioxide BUN Creatinine Glucose POC Glucose 189 H 120 H Calcium Ferritin Total Bilirubin Alkaline Phosphatase Lactate Dehydrogenase Troponin T C-Reactive Protein Total Protein Albumin Prealbumin LDL Cholesterol Direct Arterial Blood Glucose 160 H Arterial Blood Ionized Calcium 4.5 L Urine WBC (Auto) 02/27/20 02/27/20 02/27/20 05:00 07:04 17:45 WBC RBC Hgb Hct MCV MCH RDW Plt Count Lymph % (Auto) [place] # (Auto) Seg Neutrophils % Seg Neuts % (Manual) Lymphocytes % (Manual) Monocytes % (Manual) Seg Neutrophils # Seg Neutrophils # Man Lymphocytes # (Manual) Monocytes # (Manual) Eosinophils # (Manual) Basophils # (Manual) PT INR D-Dimer ABG pH 7.524 H POC ABG pCO2 POC ABG pO2 ABG pO2 ABG HCO3 ABG O2 Saturation ABG Base Excess ABG Hemoglobin ABG Oxyhemoglobin ABG Potassium 3.0 L ABG Glucose 143 H Oxyhemoglobin Carboxyhemoglobin Sodium Potassium Chloride Carbon Dioxide BUN Creatinine Glucose POC Glucose 154 H 175 H Calcium Ferritin Total Bilirubin Alkaline Phosphatase Lactate Dehydrogenase Troponin T C-Reactive Protein Total Protein Albumin Prealbumin LDL Cholesterol Direct Arterial Blood Glucose 143 H Arterial Blood Ionized Calcium Urine WBC (Auto) 02/27/20 02/28/20 02/28/20 Unknown 00:21 04:15 WBC 18.7 H RBC Hgb Hct MCV MCH RDW Plt Count Lymph % (Auto) 8.7 L [place] # (Auto) 1.2 H Seg Neutrophils % 84.6 H Seg Neuts % (Manual) Lymphocytes % (Manual) Monocytes % (Manual) Seg Neutrophils # 15.9 H Seg Neutrophils # Man Lymphocytes # (Manual) Monocytes # (Manual) Eosinophils # (Manual) Basophils # (Manual) PT INR D-Dimer ABG pH POC ABG pCO2 POC ABG pO2 ABG pO2 ABG HCO3 ABG O2 Saturation ABG Base Excess ABG Hemoglobin ABG Oxyhemoglobin ABG Potassium ABG Glucose Oxyhemoglobin Carboxyhemoglobin Sodium Potassium 2.9 L* Chloride Carbon Dioxide 33 H D BUN Creatinine < 0.2 L Glucose 157 H POC Glucose 134 H Calcium Ferritin Total Bilirubin Alkaline Phosphatase Lactate Dehydrogenase Troponin T C-Reactive Protein Total Protein Albumin Prealbumin LDL Cholesterol Direct Arterial Blood Glucose Arterial Blood Ionized Calcium Urine WBC (Auto) 02/28/20 02/28/20 02/28/20 04:15 05:16 05:39 WBC RBC Hgb Hct MCV MCH RDW Plt Count Lymph % (Auto) [place] # (Auto) Seg Neutrophils % Seg Neuts % (Manual) Lymphocytes % (Manual) Monocytes % (Manual) Seg Neutrophils # Seg Neutrophils # Man Lymphocytes # (Manual) Monocytes # (Manual) Eosinophils # (Manual) Basophils # (Manual) PT INR D-Dimer ABG pH POC ABG pCO2 POC ABG pO2 ABG pO2 142.9 H ABG HCO3 34.1 H ABG O2 Saturation ABG Base Excess 8.3 H ABG Hemoglobin ABG Oxyhemoglobin ABG Potassium ABG Glucose Oxyhemoglobin Carboxyhemoglobin Sodium 151 H Potassium Chloride Carbon Dioxide 32 H BUN Creatinine 0.2 L Glucose 167 H POC Glucose 138 H Calcium Ferritin Total Bilirubin Alkaline Phosphatase Lactate Dehydrogenase Troponin T C-Reactive Protein Total Protein Albumin Prealbumin LDL Cholesterol Direct Arterial Blood Glucose Arterial Blood Ionized Calcium Urine WBC (Auto) 02/28/20 02/28/20 02/28/20 11:05 11:33 12:54 WBC RBC Hgb Hct MCV MCH RDW Plt Count Lymph % (Auto) [place] # (Auto) Seg Neutrophils % Seg Neuts % (Manual) Lymphocytes % (Manual) Monocytes % (Manual) Seg Neutrophils # Seg Neutrophils # Man Lymphocytes # (Manual) Monocytes # (Manual) Eosinophils # (Manual) Basophils # (Manual) PT INR D-Dimer ABG pH POC ABG pCO2 POC ABG pO2 ABG pO2 ABG HCO3 ABG O2 Saturation ABG Base Excess ABG Hemoglobin ABG Oxyhemoglobin ABG Potassium ABG Glucose Oxyhemoglobin Carboxyhemoglobin Sodium Potassium Chloride Carbon Dioxide BUN Creatinine Glucose POC Glucose 160 H Calcium Ferritin Total Bilirubin Alkaline Phosphatase Lactate Dehydrogenase Troponin T C-Reactive Protein 4.70 H Total Protein Albumin Prealbumin 0.090 L LDL Cholesterol Direct Arterial Blood Glucose Arterial Blood Ionized Calcium Urine WBC (Auto) 02/28/20 02/29/20 02/29/20 17:34 00:44 04:05 WBC 19.6 H RBC Hgb Hct MCV MCH 27 L RDW 15.4 H Plt Count Lymph % (Auto) [place] # (Auto) Seg Neutrophils % Seg Neuts % (Manual) 86.0 H Lymphocytes % (Manual) 7.0 L Monocytes % (Manual) Seg Neutrophils # Seg Neutrophils # Man 16.9 H Lymphocytes # (Manual) Monocytes # (Manual) 1.2 H Eosinophils # (Manual) Basophils # (Manual) PT INR D-Dimer ABG pH POC ABG pCO2 POC ABG pO2 ABG pO2 ABG HCO3 ABG O2 Saturation ABG Base Excess ABG Hemoglobin ABG Oxyhemoglobin ABG Potassium ABG Glucose Oxyhemoglobin Carboxyhemoglobin Sodium Potassium Chloride Carbon Dioxide BUN Creatinine Glucose POC Glucose 136 H 156 H Calcium Ferritin Total Bilirubin Alkaline Phosphatase Lactate Dehydrogenase Troponin T C-Reactive Protein Total Protein Albumin Prealbumin LDL Cholesterol Direct Arterial Blood Glucose Arterial Blood Ionized Calcium Urine WBC (Auto) 02/29/20 02/29/20 02/29/20 04:05 05:14 05:33 WBC RBC Hgb Hct MCV MCH RDW Plt Count Lymph % (Auto) [place] # (Auto) Seg Neutrophils % Seg Neuts % (Manual) Lymphocytes % (Manual) Monocytes % (Manual) Seg Neutrophils # Seg Neutrophils # Man Lymphocytes # (Manual) Monocytes # (Manual) Eosinophils # (Manual) Basophils # (Manual) PT INR D-Dimer ABG pH POC ABG pCO2 54.3 H POC ABG pO2 124.8 H ABG pO2 ABG HCO3 ABG O2 Saturation ABG Base Excess ABG Hemoglobin ABG Oxyhemoglobin ABG Potassium ABG Glucose 185 H Oxyhemoglobin Carboxyhemoglobin Sodium 148 H Potassium Chloride Carbon Dioxide 33 H BUN Creatinine < 0.2 L Glucose 173 H POC Glucose 152 H Calcium Ferritin Total Bilirubin Alkaline Phosphatase Lactate Dehydrogenase Troponin T C-Reactive Protein Total Protein Albumin Prealbumin LDL Cholesterol Direct Arterial Blood Glucose 185 H Arterial Blood Ionized Calcium Urine WBC (Auto) 03/01/20 03/01/20 03/01/20 00:00 03:45 04:33 WBC 23.1 H RBC Hgb Hct MCV MCH 27 L RDW 15.3 H Plt Count Lymph % (Auto) [place] # (Auto) Seg Neutrophils % Seg Neuts % (Manual) 92.0 H Lymphocytes % (Manual) 6.0 L Monocytes % (Manual) Seg Neutrophils # Seg Neutrophils # Man 21.3 H Lymphocytes # (Manual) Monocytes # (Manual) Eosinophils # (Manual) 0.5 H Basophils # (Manual) PT INR D-Dimer ABG pH 7.492 H POC ABG pCO2 POC ABG pO2 ABG pO2 157.1 H ABG HCO3 32.3 H ABG O2 Saturation ABG Base Excess 8.1 H ABG Hemoglobin 13.2 L ABG Oxyhemoglobin ABG Potassium ABG Glucose Oxyhemoglobin Carboxyhemoglobin Sodium Potassium Chloride Carbon Dioxide BUN Creatinine Glucose POC Glucose 109 H Calcium Ferritin Total Bilirubin Alkaline Phosphatase Lactate Dehydrogenase Troponin T C-Reactive Protein Total Protein Albumin Prealbumin LDL Cholesterol Direct Arterial Blood Glucose Arterial Blood Ionized Calcium Urine WBC (Auto) 03/01/20 03/01/20 03/01/20 04:33 05:29 12:32 WBC RBC Hgb Hct MCV MCH RDW Plt Count Lymph % (Auto) [place] # (Auto) Seg Neutrophils % Seg Neuts % (Manual) Lymphocytes % (Manual) Monocytes % (Manual) Seg Neutrophils # Seg Neutrophils # Man Lymphocytes # (Manual) Monocytes # (Manual) Eosinophils # (Manual) Basophils # (Manual) PT INR D-Dimer ABG pH POC ABG pCO2 POC ABG pO2 ABG pO2 ABG HCO3 ABG O2 Saturation ABG Base Excess ABG Hemoglobin ABG Oxyhemoglobin ABG Potassium ABG Glucose Oxyhemoglobin Carboxyhemoglobin Sodium 146 H Potassium Chloride Carbon Dioxide 32 H BUN Creatinine < 0.2 L Glucose 120 H POC Glucose 120 H 128 H Calcium Ferritin Total Bilirubin Alkaline Phosphatase Lactate Dehydrogenase Troponin T C-Reactive Protein Total Protein Albumin Prealbumin LDL Cholesterol Direct Arterial Blood Glucose Arterial Blood Ionized Calcium Urine WBC (Auto) 03/01/20 03/01/20 03/02/20 17:38 23:46 06:13 WBC RBC Hgb Hct MCV MCH RDW Plt Count Lymph % (Auto) [place] # (Auto) Seg Neutrophils % Seg Neuts % (Manual) Lymphocytes % (Manual) Monocytes % (Manual) Seg Neutrophils # Seg Neutrophils # Man Lymphocytes # (Manual) Monocytes # (Manual) Eosinophils # (Manual) Basophils # (Manual) PT INR D-Dimer ABG pH POC ABG pCO2 POC ABG pO2 ABG pO2 ABG HCO3 ABG O2 Saturation ABG Base Excess ABG Hemoglobin ABG Oxyhemoglobin ABG Potassium ABG Glucose Oxyhemoglobin Carboxyhemoglobin Sodium Potassium Chloride Carbon Dioxide BUN Creatinine Glucose POC Glucose 114 H 121 H 120 H Calcium Ferritin Total Bilirubin Alkaline Phosphatase Lactate Dehydrogenase Troponin T C-Reactive Protein Total Protein Albumin Prealbumin LDL Cholesterol Direct Arterial Blood Glucose Arterial Blood Ionized Calcium Urine WBC (Auto) 03/02/20 03/02/20 03/03/20 09:47 09:47 10:21 WBC 23.6 H RBC Hgb Hct MCV MCH RDW 15.3 H Plt Count 494 H Lymph % (Auto) [place] # (Auto) Seg Neutrophils % Seg Neuts % (Manual) 85.0 H Lymphocytes % (Manual) 6.0 L Monocytes % (Manual) Seg Neutrophils # Seg Neutrophils # Man 20.1 H Lymphocytes # (Manual) Monocytes # (Manual) 1.7 H Eosinophils # (Manual) Basophils # (Manual) PT INR D-Dimer ABG pH POC ABG pCO2 POC ABG pO2 ABG pO2 ABG HCO3 ABG O2 Saturation ABG Base Excess ABG Hemoglobin ABG Oxyhemoglobin ABG Potassium 3.3 L ABG Glucose 158 H Oxyhemoglobin Carboxyhemoglobin Sodium Potassium Chloride Carbon Dioxide BUN Creatinine < 0.2 L Glucose 177 H POC Glucose Calcium Ferritin Total Bilirubin Alkaline Phosphatase Lactate Dehydrogenase Troponin T C-Reactive Protein Total Protein Albumin Prealbumin LDL Cholesterol Direct Arterial Blood Glucose 158 H Arterial Blood Ionized Calcium Urine WBC (Auto) 03/03/20 03/04/20 03/04/20 21:30 00:00 12:23 WBC RBC Hgb Hct MCV MCH RDW Plt Count Lymph % (Auto) [place] # (Auto) Seg Neutrophils % Seg Neuts % (Manual) Lymphocytes % (Manual) Monocytes % (Manual) Seg Neutrophils # Seg Neutrophils # Man Lymphocytes # (Manual) Monocytes # (Manual) Eosinophils # (Manual) Basophils # (Manual) PT INR D-Dimer ABG pH 7.328 L POC ABG pCO2 POC ABG pO2 ABG pO2 68.4 L ABG HCO3 35.0 H ABG O2 Saturation 93.9 L ABG Base Excess 6.8 H ABG Hemoglobin 12.7 L ABG Oxyhemoglobin ABG Potassium ABG Glucose Oxyhemoglobin 91.9 L Carboxyhemoglobin Sodium Potassium Chloride Carbon Dioxide BUN Creatinine Glucose POC Glucose 187 H 163 H Calcium Ferritin Total Bilirubin Alkaline Phosphatase Lactate Dehydrogenase Troponin T C-Reactive Protein Total Protein Albumin Prealbumin LDL Cholesterol Direct Arterial Blood Glucose Arterial Blood Ionized Calcium Urine WBC (Auto) 03/04/20 03/04/20 03/05/20 18:15 21:30 06:02 WBC RBC Hgb Hct MCV MCH RDW Plt Count Lymph % (Auto) [place] # (Auto) Seg Neutrophils % Seg Neuts % (Manual) Lymphocytes % (Manual) Monocytes % (Manual) Seg Neutrophils # Seg Neutrophils # Man Lymphocytes # (Manual) Monocytes # (Manual) Eosinophils # (Manual) Basophils # (Manual) PT INR D-Dimer ABG pH 7.297 L POC ABG pCO2 POC ABG pO2 ABG pO2 ABG HCO3 41.0 H ABG O2 Saturation ABG Base Excess 11.0 H ABG Hemoglobin 13.1 L ABG Oxyhemoglobin ABG Potassium ABG Glucose Oxyhemoglobin 94.5 L Carboxyhemoglobin Sodium Potassium Chloride Carbon Dioxide BUN Creatinine Glucose POC Glucose 192 H 127 H Calcium Ferritin Total Bilirubin Alkaline Phosphatase Lactate Dehydrogenase Troponin T C-Reactive Protein Total Protein Albumin Prealbumin LDL Cholesterol Direct Arterial Blood Glucose Arterial Blood Ionized Calcium Urine WBC (Auto) 03/05/20 03/05/20 03/06/20 12:09 16:42 00:24 WBC RBC Hgb Hct MCV MCH RDW Plt Count Lymph % (Auto) [place] # (Auto) Seg Neutrophils % Seg Neuts % (Manual) Lymphocytes % (Manual) Monocytes % (Manual) Seg Neutrophils # Seg Neutrophils # Man Lymphocytes # (Manual) Monocytes # (Manual) Eosinophils # (Manual) Basophils # (Manual) PT INR D-Dimer ABG pH POC ABG pCO2 POC ABG pO2 ABG pO2 ABG HCO3 ABG O2 Saturation ABG Base Excess ABG Hemoglobin ABG Oxyhemoglobin ABG Potassium ABG Glucose Oxyhemoglobin Carboxyhemoglobin Sodium Potassium Chloride Carbon Dioxide BUN Creatinine Glucose POC Glucose 147 H 114 H 134 H Calcium Ferritin Total Bilirubin Alkaline Phosphatase Lactate Dehydrogenase Troponin T C-Reactive Protein Total Protein Albumin Prealbumin LDL Cholesterol Direct Arterial Blood Glucose Arterial Blood Ionized Calcium Urine WBC (Auto) 03/06/20 03/06/20 03/06/20 04:34 05:53 06:08 WBC 25.4 H RBC Hgb 10.5 L Hct 32.7 L MCV MCH 27 L RDW 15.3 H Plt Count 634 H Lymph % (Auto) [place] # (Auto) Seg Neutrophils % Seg Neuts % (Manual) 88.0 H Lymphocytes % (Manual) 2.0 L Monocytes % (Manual) 8.0 H Seg Neutrophils # Seg Neutrophils # Man 22.4 H Lymphocytes # (Manual) 0.5 L Monocytes # (Manual) 2.0 H Eosinophils # (Manual) Basophils # (Manual) PT INR D-Dimer ABG pH POC ABG pCO2 POC ABG pO2 ABG pO2 ABG HCO3 37.9 H ABG O2 Saturation ABG Base Excess 11.4 H ABG Hemoglobin 10.6 L ABG Oxyhemoglobin ABG Potassium ABG Glucose Oxyhemoglobin 94.7 L Carboxyhemoglobin Sodium Potassium Chloride Carbon Dioxide BUN Creatinine Glucose POC Glucose 135 H Calcium Ferritin Total Bilirubin Alkaline Phosphatase Lactate Dehydrogenase Troponin T C-Reactive Protein Total Protein Albumin Prealbumin LDL Cholesterol Direct Arterial Blood Glucose Arterial Blood Ionized Calcium Urine WBC (Auto) 03/06/20 03/06/20 03/06/20 06:08 12:19 19:10 WBC RBC Hgb Hct MCV MCH RDW Plt Count Lymph % (Auto) [place] # (Auto) Seg Neutrophils % Seg Neuts % (Manual) Lymphocytes % (Manual) Monocytes % (Manual) Seg Neutrophils # Seg Neutrophils # Man Lymphocytes # (Manual) Monocytes # (Manual) Eosinophils # (Manual) Basophils # (Manual) PT INR D-Dimer ABG pH POC ABG pCO2 POC ABG pO2 ABG pO2 ABG HCO3 ABG O2 Saturation ABG Base Excess ABG Hemoglobin ABG Oxyhemoglobin ABG Potassium ABG Glucose Oxyhemoglobin Carboxyhemoglobin Sodium 150 H D Potassium Chloride Carbon Dioxide 39 H D BUN 23 H Creatinine < 0.2 L Glucose 144 H POC Glucose 169 H 152 H Calcium Ferritin Total Bilirubin Alkaline Phosphatase Lactate Dehydrogenase Troponin T C-Reactive Protein Total Protein Albumin 3.3 L Prealbumin LDL Cholesterol Direct Arterial Blood Glucose Arterial Blood Ionized Calcium Urine WBC (Auto) 03/06/20 03/07/20 03/07/20 23:58 04:25 04:25 WBC 22.1 H RBC Hgb 10.9 L Hct 32.9 L MCV MCH RDW 15.5 H Plt Count 739 H Lymph % (Auto) 7.8 L [place] # (Auto) 1.3 H Seg Neutrophils % 85.5 H Seg Neuts % (Manual) Lymphocytes % (Manual) Monocytes % (Manual) Seg Neutrophils # 18.9 H Seg Neutrophils # Man Lymphocytes # (Manual) Monocytes # (Manual) Eosinophils # (Manual) Basophils # (Manual) PT INR D-Dimer ABG pH POC ABG pCO2 POC ABG pO2 ABG pO2 ABG HCO3 ABG O2 Saturation ABG Base Excess ABG Hemoglobin ABG Oxyhemoglobin ABG Potassium ABG Glucose Oxyhemoglobin Carboxyhemoglobin Sodium 146 H Potassium Chloride Carbon Dioxide 37 H BUN Creatinine < 0.2 L Glucose 118 H POC Glucose 111 H Calcium Ferritin Total Bilirubin Alkaline Phosphatase Lactate Dehydrogenase Troponin T C-Reactive Protein Total Protein Albumin 3.7 L Prealbumin LDL Cholesterol Direct Arterial Blood Glucose Arterial Blood Ionized Calcium Urine WBC (Auto) 03/07/20 03/07/20 03/07/20 05:20 17:45 23:32 WBC RBC Hgb Hct MCV MCH RDW Plt Count Lymph % (Auto) [place] # (Auto) Seg Neutrophils % Seg Neuts % (Manual) Lymphocytes % (Manual) Monocytes % (Manual) Seg Neutrophils # Seg Neutrophils # Man Lymphocytes # (Manual) Monocytes # (Manual) Eosinophils # (Manual) Basophils # (Manual) PT INR D-Dimer ABG pH POC ABG pCO2 POC ABG pO2 ABG pO2 ABG HCO3 ABG O2 Saturation ABG Base Excess ABG Hemoglobin ABG Oxyhemoglobin ABG Potassium ABG Glucose Oxyhemoglobin Carboxyhemoglobin Sodium Potassium Chloride Carbon Dioxide BUN Creatinine Glucose POC Glucose 113 H 124 H 210 H Calcium Ferritin Total Bilirubin Alkaline Phosphatase Lactate Dehydrogenase Troponin T C-Reactive Protein Total Protein Albumin Prealbumin LDL Cholesterol Direct Arterial Blood Glucose Arterial Blood Ionized Calcium Urine WBC (Auto) 03/08/20 03/08/20 03/08/20 05:35 06:43 06:43 WBC 28.9 H RBC 3.53 L Hgb 9.7 L Hct 30.3 L MCV MCH RDW 15.6 H Plt Count 578 H Lymph % (Auto) [place] # (Auto) Seg Neutrophils % Seg Neuts % (Manual) 93.0 H Lymphocytes % (Manual) 4.0 L Monocytes % (Manual) Seg Neutrophils # Seg Neutrophils # Man 26.9 H Lymphocytes # (Manual) Monocytes # (Manual) Eosinophils # (Manual) Basophils # (Manual) PT INR D-Dimer ABG pH POC ABG pCO2 POC ABG pO2 ABG pO2 ABG HCO3 ABG O2 Saturation ABG Base Excess ABG Hemoglobin ABG Oxyhemoglobin ABG Potassium ABG Glucose Oxyhemoglobin Carboxyhemoglobin Sodium 146 H Potassium Chloride Carbon Dioxide 35 H BUN 34 H Creatinine 0.3 L D Glucose 125 H POC Glucose 147 H Calcium Ferritin Total Bilirubin Alkaline Phosphatase Lactate Dehydrogenase Troponin T C-Reactive Protein Total Protein 5.9 L Albumin 3.2 L Prealbumin LDL Cholesterol Direct Arterial Blood Glucose Arterial Blood Ionized Calcium Urine WBC (Auto) 03/08/20 03/08/20 03/08/20 08:57 11:14 12:34 WBC RBC Hgb Hct MCV MCH RDW Plt Count Lymph % (Auto) [place] # (Auto) Seg Neutrophils % Seg Neuts % (Manual) Lymphocytes % (Manual) Monocytes % (Manual) Seg Neutrophils # Seg Neutrophils # Man Lymphocytes # (Manual) Monocytes # (Manual) Eosinophils # (Manual) Basophils # (Manual) PT INR D-Dimer ABG pH POC ABG pCO2 63.1 H POC ABG pO2 ABG pO2 ABG HCO3 ABG O2 Saturation ABG Base Excess ABG Hemoglobin 10.9 L ABG Oxyhemoglobin ABG Potassium ABG Glucose 176 H Oxyhemoglobin Carboxyhemoglobin Sodium Potassium Chloride Carbon Dioxide BUN Creatinine Glucose POC Glucose 171 H Calcium Ferritin Total Bilirubin Alkaline Phosphatase Lactate Dehydrogenase Troponin T C-Reactive Protein Total Protein Albumin Prealbumin LDL Cholesterol Direct Arterial Blood Glucose 176 H Arterial Blood Ionized Calcium 4.5 L Urine WBC (Auto) 10.0 H 03/08/20 03/08/20 03/09/20 18:02 23:43 05:49 WBC RBC Hgb Hct MCV MCH RDW Plt Count Lymph % (Auto) [place] # (Auto) Seg Neutrophils % Seg Neuts % (Manual) Lymphocytes % (Manual) Monocytes % (Manual) Seg Neutrophils # Seg Neutrophils # Man Lymphocytes # (Manual) Monocytes # (Manual) Eosinophils # (Manual) Basophils # (Manual) PT INR D-Dimer ABG pH POC ABG pCO2 POC ABG pO2 ABG pO2 ABG HCO3 ABG O2 Saturation ABG Base Excess ABG Hemoglobin ABG Oxyhemoglobin ABG Potassium ABG Glucose Oxyhemoglobin Carboxyhemoglobin Sodium Potassium Chloride Carbon Dioxide BUN Creatinine Glucose POC Glucose 157 H 134 H 163 H Calcium Ferritin Total Bilirubin Alkaline Phosphatase Lactate Dehydrogenase Troponin T C-Reactive Protein Total Protein Albumin Prealbumin LDL Cholesterol Direct Arterial Blood Glucose Arterial Blood Ionized Calcium Urine WBC (Auto) 03/09/20 03/09/20 03/09/20 08:35 08:35 12:11 WBC 23.4 H RBC 3.36 L Hgb 9.3 L Hct 28.8 L MCV MCH RDW 15.9 H Plt Count 521 H Lymph % (Auto) [place] # (Auto) Seg Neutrophils % Seg Neuts % (Manual) 87.0 H Lymphocytes % (Manual) 4.0 L Monocytes % (Manual) 9.0 H Seg Neutrophils # Seg Neutrophils # Man 20.4 H Lymphocytes # (Manual) 0.9 L Monocytes # (Manual) 2.1 H Eosinophils # (Manual) Basophils # (Manual) PT INR D-Dimer ABG pH POC ABG pCO2 POC ABG pO2 ABG pO2 ABG HCO3 ABG O2 Saturation ABG Base Excess ABG Hemoglobin ABG Oxyhemoglobin ABG Potassium ABG Glucose Oxyhemoglobin Carboxyhemoglobin Sodium 147 H Potassium Chloride Carbon Dioxide 37 H BUN 63 H Creatinine Glucose 154 H POC Glucose 128 H Calcium Ferritin Total Bilirubin Alkaline Phosphatase Lactate Dehydrogenase Troponin T C-Reactive Protein Total Protein Albumin Prealbumin LDL Cholesterol Direct Arterial Blood Glucose Arterial Blood Ionized Calcium Urine WBC (Auto) 03/09/20 03/10/20 03/10/20 17:51 00:25 05:41 WBC RBC Hgb Hct MCV MCH RDW Plt Count Lymph % (Auto) [place] # (Auto) Seg Neutrophils % Seg Neuts % (Manual) Lymphocytes % (Manual) Monocytes % (Manual) Seg Neutrophils # Seg Neutrophils # Man Lymphocytes # (Manual) Monocytes # (Manual) Eosinophils # (Manual) Basophils # (Manual) PT INR D-Dimer ABG pH POC ABG pCO2 POC ABG pO2 ABG pO2 ABG HCO3 ABG O2 Saturation ABG Base Excess ABG Hemoglobin ABG Oxyhemoglobin ABG Potassium ABG Glucose Oxyhemoglobin Carboxyhemoglobin Sodium Potassium Chloride Carbon Dioxide BUN Creatinine Glucose POC Glucose 127 H 128 H 153 H Calcium Ferritin Total Bilirubin Alkaline Phosphatase Lactate Dehydrogenase Troponin T C-Reactive Protein Total Protein Albumin Prealbumin LDL Cholesterol Direct Arterial Blood Glucose Arterial Blood Ionized Calcium Urine WBC (Auto) 03/10/20 03/10/20 03/10/20 06:14 06:14 12:02 WBC 18.3 H RBC 3.45 L Hgb 9.5 L Hct 29.5 L MCV MCH RDW 16.1 H Plt Count 494 H Lymph % (Auto) [place] # (Auto) Seg Neutrophils % Seg Neuts % (Manual) 95.0 H Lymphocytes % (Manual) 1.0 L Monocytes % (Manual) Seg Neutrophils # Seg Neutrophils # Man 17.4 H Lymphocytes # (Manual) 0.2 L Monocytes # (Manual) Eosinophils # (Manual) Basophils # (Manual) PT INR D-Dimer ABG pH POC ABG pCO2 POC ABG pO2 ABG pO2 ABG HCO3 ABG O2 Saturation ABG Base Excess ABG Hemoglobin ABG Oxyhemoglobin ABG Potassium ABG Glucose Oxyhemoglobin Carboxyhemoglobin Sodium 149 H Potassium Chloride Carbon Dioxide 35 H BUN 34 H Creatinine 0.2 L D Glucose 177 H POC Glucose 151 H Calcium Ferritin Total Bilirubin Alkaline Phosphatase Lactate Dehydrogenase Troponin T C-Reactive Protein Total Protein Albumin Prealbumin LDL Cholesterol Direct Arterial Blood Glucose Arterial Blood Ionized Calcium Urine WBC (Auto) 03/10/20 03/10/20 03/11/20 17:41 23:53 05:02 WBC RBC Hgb Hct MCV MCH RDW Plt Count Lymph % (Auto) [place] # (Auto) Seg Neutrophils % Seg Neuts % (Manual) Lymphocytes % (Manual) Monocytes % (Manual) Seg Neutrophils # Seg Neutrophils # Man Lymphocytes # (Manual) Monocytes # (Manual) Eosinophils # (Manual) Basophils # (Manual) PT INR D-Dimer ABG pH POC ABG pCO2 POC ABG pO2 ABG pO2 ABG HCO3 ABG O2 Saturation ABG Base Excess ABG Hemoglobin ABG Oxyhemoglobin ABG Potassium ABG Glucose Oxyhemoglobin Carboxyhemoglobin Sodium Potassium Chloride Carbon Dioxide BUN Creatinine Glucose POC Glucose 168 H 142 H 146 H Calcium Ferritin Total Bilirubin Alkaline Phosphatase Lactate Dehydrogenase Troponin T C-Reactive Protein Total Protein Albumin Prealbumin LDL Cholesterol Direct Arterial Blood Glucose Arterial Blood Ionized Calcium Urine WBC (Auto) 03/11/20 03/11/20 03/11/20 11:30 14:01 14:01 WBC 19.7 H RBC 3.04 L Hgb 8.7 L Hct 25.8 L MCV MCH RDW 15.6 H Plt Count Lymph % (Auto) [place] # (Auto) Seg Neutrophils % Seg Neuts % (Manual) Lymphocytes % (Manual) Monocytes % (Manual) Seg Neutrophils # Seg Neutrophils # Man Lymphocytes # (Manual) Monocytes # (Manual) Eosinophils # (Manual) Basophils # (Manual) PT INR D-Dimer ABG pH POC ABG pCO2 POC ABG pO2 ABG pO2 ABG HCO3 ABG O2 Saturation ABG Base Excess ABG Hemoglobin ABG Oxyhemoglobin ABG Potassium ABG Glucose Oxyhemoglobin Carboxyhemoglobin Sodium 151 H Potassium Chloride Carbon Dioxide 37 H BUN Creatinine < 0.2 L Glucose 171 H POC Glucose 248 H Calcium Ferritin Total Bilirubin Alkaline Phosphatase Lactate Dehydrogenase Troponin T C-Reactive Protein Total Protein Albumin Prealbumin LDL Cholesterol Direct Arterial Blood Glucose Arterial Blood Ionized Calcium Urine WBC (Auto) 03/11/20 03/11/20 03/12/20 17:09 23:52 04:39 WBC 19.9 H RBC 3.16 L Hgb 8.9 L Hct 27.5 L MCV MCH RDW 15.7 H Plt Count Lymph % (Auto) 6.8 L [place] # (Auto) 1.2 H Seg Neutrophils % 86.0 H Seg Neuts % (Manual) Lymphocytes % (Manual) Monocytes % (Manual) Seg Neutrophils # 17.1 H Seg Neutrophils # Man Lymphocytes # (Manual) Monocytes # (Manual) Eosinophils # (Manual) Basophils # (Manual) PT INR D-Dimer ABG pH POC ABG pCO2 POC ABG pO2 ABG pO2 ABG HCO3 ABG O2 Saturation ABG Base Excess ABG Hemoglobin ABG Oxyhemoglobin ABG Potassium ABG Glucose Oxyhemoglobin Carboxyhemoglobin Sodium Potassium Chloride Carbon Dioxide BUN Creatinine Glucose POC Glucose 124 H 131 H Calcium Ferritin Total Bilirubin Alkaline Phosphatase Lactate Dehydrogenase Troponin T C-Reactive Protein Total Protein Albumin Prealbumin LDL Cholesterol Direct Arterial Blood Glucose Arterial Blood Ionized Calcium Urine WBC (Auto) 03/12/20 03/12/20 03/12/20 04:39 05:28 11:34 WBC RBC Hgb Hct MCV MCH RDW Plt Count Lymph % (Auto) [place] # (Auto) Seg Neutrophils % Seg Neuts % (Manual) Lymphocytes % (Manual) Monocytes % (Manual) Seg Neutrophils # Seg Neutrophils # Man Lymphocytes # (Manual) Monocytes # (Manual) Eosinophils # (Manual) Basophils # (Manual) PT INR D-Dimer ABG pH POC ABG pCO2 POC ABG pO2 ABG pO2 ABG HCO3 ABG O2 Saturation ABG Base Excess ABG Hemoglobin ABG Oxyhemoglobin ABG Potassium ABG Glucose Oxyhemoglobin Carboxyhemoglobin Sodium 147 H Potassium Chloride Carbon Dioxide 40 H BUN Creatinine < 0.2 L Glucose 175 H POC Glucose 167 H 144 H Calcium Ferritin Total Bilirubin Alkaline Phosphatase Lactate Dehydrogenase Troponin T C-Reactive Protein Total Protein Albumin Prealbumin LDL Cholesterol Direct Arterial Blood Glucose Arterial Blood Ionized Calcium Urine WBC (Auto) 03/12/20 03/12/20 03/13/20 17:32 23:57 05:57 WBC RBC Hgb Hct MCV MCH RDW Plt Count Lymph % (Auto) [place] # (Auto) Seg Neutrophils % Seg Neuts % (Manual) Lymphocytes % (Manual) Monocytes % (Manual) Seg Neutrophils # Seg Neutrophils # Man Lymphocytes # (Manual) Monocytes # (Manual) Eosinophils # (Manual) Basophils # (Manual) PT INR D-Dimer ABG pH POC ABG pCO2 POC ABG pO2 ABG pO2 ABG HCO3 ABG O2 Saturation ABG Base Excess ABG Hemoglobin ABG Oxyhemoglobin ABG Potassium ABG Glucose Oxyhemoglobin Carboxyhemoglobin Sodium Potassium Chloride Carbon Dioxide BUN Creatinine Glucose POC Glucose 141 H 137 H 161 H Calcium Ferritin Total Bilirubin Alkaline Phosphatase Lactate Dehydrogenase Troponin T C-Reactive Protein Total Protein Albumin Prealbumin LDL Cholesterol Direct Arterial Blood Glucose Arterial Blood Ionized Calcium Urine WBC (Auto) 03/13/20 03/13/20 03/13/20 12:28 14:14 18:39 WBC RBC Hgb Hct MCV MCH RDW Plt Count Lymph % (Auto) [place] # (Auto) Seg Neutrophils % Seg Neuts % (Manual) Lymphocytes % (Manual) Monocytes % (Manual) Seg Neutrophils # Seg Neutrophils # Man Lymphocytes # (Manual) Monocytes # (Manual) Eosinophils # (Manual) Basophils # (Manual) PT INR D-Dimer ABG pH POC ABG pCO2 POC ABG pO2 ABG pO2 ABG HCO3 ABG O2 Saturation ABG Base Excess ABG Hemoglobin ABG Oxyhemoglobin ABG Potassium ABG Glucose Oxyhemoglobin Carboxyhemoglobin Sodium Potassium Chloride Carbon Dioxide 39 H BUN Creatinine < 0.2 L Glucose 129 H POC Glucose 130 H 125 H Calcium Ferritin Total Bilirubin Alkaline Phosphatase Lactate Dehydrogenase Troponin T C-Reactive Protein Total Protein Albumin Prealbumin LDL Cholesterol Direct Arterial Blood Glucose Arterial Blood Ionized Calcium Urine WBC (Auto) 03/13/20 03/14/20 03/14/20 23:33 05:24 08:07 WBC 16.8 H RBC 2.81 L Hgb 7.9 L Hct 23.9 L MCV MCH RDW 15.9 H Plt Count Lymph % (Auto) [place] # (Auto) Seg Neutrophils % Seg Neuts % (Manual) 84.0 H Lymphocytes % (Manual) 10.0 L Monocytes % (Manual) Seg Neutrophils # Seg Neutrophils # Man 14.1 H Lymphocytes # (Manual) Monocytes # (Manual) Eosinophils # (Manual) Basophils # (Manual) PT INR D-Dimer ABG pH POC ABG pCO2 POC ABG pO2 ABG pO2 ABG HCO3 ABG O2 Saturation ABG Base Excess ABG Hemoglobin ABG Oxyhemoglobin ABG Potassium ABG Glucose Oxyhemoglobin Carboxyhemoglobin Sodium Potassium Chloride Carbon Dioxide BUN Creatinine Glucose POC Glucose 146 H 125 H Calcium Ferritin Total Bilirubin Alkaline Phosphatase Lactate Dehydrogenase Troponin T C-Reactive Protein Total Protein Albumin Prealbumin LDL Cholesterol Direct Arterial Blood Glucose Arterial Blood Ionized Calcium Urine WBC (Auto) 03/14/20 03/14/20 03/14/20 08:07 12:21 18:26 WBC RBC Hgb Hct MCV MCH RDW Plt Count Lymph % (Auto) [place] # (Auto) Seg Neutrophils % Seg Neuts % (Manual) Lymphocytes % (Manual) Monocytes % (Manual) Seg Neutrophils # Seg Neutrophils # Man Lymphocytes # (Manual) Monocytes # (Manual) Eosinophils # (Manual) Basophils # (Manual) PT INR D-Dimer ABG pH POC ABG pCO2 POC ABG pO2 ABG pO2 ABG HCO3 ABG O2 Saturation ABG Base Excess ABG Hemoglobin ABG Oxyhemoglobin ABG Potassium ABG Glucose Oxyhemoglobin Carboxyhemoglobin Sodium Potassium Chloride 97.0 L Carbon Dioxide 37 H BUN Creatinine < 0.2 L Glucose 129 H POC Glucose 109 H 142 H Calcium 8.3 L Ferritin Total Bilirubin Alkaline Phosphatase Lactate Dehydrogenase Troponin T C-Reactive Protein Total Protein Albumin Prealbumin LDL Cholesterol Direct Arterial Blood Glucose Arterial Blood Ionized Calcium Urine WBC (Auto) 03/14/20 03/15/20 03/15/20 23:57 05:46 08:06 WBC 19.7 H RBC 3.29 L Hgb 9.1 L Hct 28.0 L MCV MCH RDW 15.9 H Plt Count Lymph % (Auto) [place] # (Auto) Seg Neutrophils % Seg Neuts % (Manual) Lymphocytes % (Manual) Monocytes % (Manual) Seg Neutrophils # Seg Neutrophils # Man Lymphocytes # (Manual) Monocytes # (Manual) Eosinophils # (Manual) Basophils # (Manual) PT INR D-Dimer ABG pH POC ABG pCO2 POC ABG pO2 ABG pO2 ABG HCO3 ABG O2 Saturation ABG Base Excess ABG Hemoglobin ABG Oxyhemoglobin ABG Potassium ABG Glucose Oxyhemoglobin Carboxyhemoglobin Sodium Potassium Chloride Carbon Dioxide BUN Creatinine Glucose POC Glucose 157 H 118 H Calcium Ferritin Total Bilirubin Alkaline Phosphatase Lactate Dehydrogenase Troponin T C-Reactive Protein Total Protein Albumin Prealbumin LDL Cholesterol Direct Arterial Blood Glucose Arterial Blood Ionized Calcium Urine WBC (Auto) 03/15/20 03/15/20 03/15/20 08:06 12:44 18:09 WBC RBC Hgb Hct MCV MCH RDW Plt Count Lymph % (Auto) [place] # (Auto) Seg Neutrophils % Seg Neuts % (Manual) Lymphocytes % (Manual) Monocytes % (Manual) Seg Neutrophils # Seg Neutrophils # Man Lymphocytes # (Manual) Monocytes # (Manual) Eosinophils # (Manual) Basophils # (Manual) PT INR D-Dimer ABG pH POC ABG pCO2 POC ABG pO2 ABG pO2 ABG HCO3 ABG O2 Saturation ABG Base Excess ABG Hemoglobin ABG Oxyhemoglobin ABG Potassium ABG Glucose Oxyhemoglobin Carboxyhemoglobin Sodium 136 L Potassium Chloride 93.6 L Carbon Dioxide 37 H BUN Creatinine < 0.2 L Glucose 132 H POC Glucose 151 H 164 H Calcium Ferritin Total Bilirubin Alkaline Phosphatase Lactate Dehydrogenase Troponin T C-Reactive Protein Total Protein Albumin Prealbumin LDL Cholesterol Direct Arterial Blood Glucose Arterial Blood Ionized Calcium Urine WBC (Auto) 03/15/20 03/16/20 03/16/20 23:26 05:39 11:58 WBC RBC Hgb Hct MCV MCH RDW Plt Count Lymph % (Auto) [place] # (Auto) Seg Neutrophils % Seg Neuts % (Manual) Lymphocytes % (Manual) Monocytes % (Manual) Seg Neutrophils # Seg Neutrophils # Man Lymphocytes # (Manual) Monocytes # (Manual) Eosinophils # (Manual) Basophils # (Manual) PT INR D-Dimer ABG pH POC ABG pCO2 POC ABG pO2 ABG pO2 ABG HCO3 ABG O2 Saturation ABG Base Excess ABG Hemoglobin ABG Oxyhemoglobin ABG Potassium ABG Glucose Oxyhemoglobin Carboxyhemoglobin Sodium Potassium Chloride Carbon Dioxide BUN Creatinine Glucose POC Glucose 136 H 116 H 109 H Calcium Ferritin Total Bilirubin Alkaline Phosphatase Lactate Dehydrogenase Troponin T C-Reactive Protein Total Protein Albumin Prealbumin LDL Cholesterol Direct Arterial Blood Glucose Arterial Blood Ionized Calcium Urine WBC (Auto) 03/16/20 03/17/20 03/17/20 23:56 04:40 04:40 WBC 18.0 H RBC 3.33 L Hgb 9.5 L Hct 28.8 L MCV MCH RDW 16.4 H Plt Count 499 H Lymph % (Auto) [place] # (Auto) Seg Neutrophils % Seg Neuts % (Manual) 82.0 H Lymphocytes % (Manual) 8.0 L Monocytes % (Manual) Seg Neutrophils # Seg Neutrophils # Man 14.8 H Lymphocytes # (Manual) Monocytes # (Manual) 1.3 H Eosinophils # (Manual) Basophils # (Manual) 0.2 H PT INR D-Dimer ABG pH POC ABG pCO2 POC ABG pO2 ABG pO2 ABG HCO3 ABG O2 Saturation ABG Base Excess ABG Hemoglobin ABG Oxyhemoglobin ABG Potassium ABG Glucose Oxyhemoglobin Carboxyhemoglobin Sodium Potassium Chloride 97.7 L Carbon Dioxide 32 H BUN Creatinine < 0.2 L Glucose 114 H POC Glucose 131 H Calcium Ferritin Total Bilirubin Alkaline Phosphatase Lactate Dehydrogenase Troponin T C-Reactive Protein Total Protein Albumin Prealbumin LDL Cholesterol Direct Arterial Blood Glucose Arterial Blood Ionized Calcium Urine WBC (Auto) 03/18/20 03/18/20 03/18/20 00:21 05:21 11:55 WBC RBC Hgb Hct MCV MCH RDW Plt Count Lymph % (Auto) [place] # (Auto) Seg Neutrophils % Seg Neuts % (Manual) Lymphocytes % (Manual) Monocytes % (Manual) Seg Neutrophils # Seg Neutrophils # Man Lymphocytes # (Manual) Monocytes # (Manual) Eosinophils # (Manual) Basophils # (Manual) PT INR D-Dimer ABG pH POC ABG pCO2 POC ABG pO2 ABG pO2 ABG HCO3 ABG O2 Saturation ABG Base Excess ABG Hemoglobin ABG Oxyhemoglobin ABG Potassium ABG Glucose Oxyhemoglobin Carboxyhemoglobin Sodium Potassium Chloride Carbon Dioxide BUN Creatinine Glucose POC Glucose 124 H 138 H 119 H Calcium Ferritin Total Bilirubin Alkaline Phosphatase Lactate Dehydrogenase Troponin T C-Reactive Protein Total Protein Albumin Prealbumin LDL Cholesterol Direct Arterial Blood Glucose Arterial Blood Ionized Calcium Urine WBC (Auto) Chest x-ray: image reviewed (From 03/12) Allied health notes reviewed: RT
--- NOTE | 2020-03-18 12:21 | Progress Note ---
Assessment and Plan --Acute hypoxic hypercapnic respiratory failure; Intubated on mechanical ventilation. Etiology secondary to sepsis, ALS, multifocal pneumonia (Covid negative). S/p trach placement 03/07/20 --Dysphagia, status post PEG placement for tube feeding on 03/17/20 --ALS; Chronic Continue to provide supportive care --Elevated D-dimers; CTA chest, lower extremity venous Doppler both are negative Lovenox for DVT prophylaxis --Bilateral pneumonia; probably community-acquired Continue cefepime and vancomycin ID recommendations appreciated --Sepsis secondary to pneumonia Continue cefepime and vancomycin --Elevated troponin; Serial cardiac enzymes, serial EKGs Echocardiogram, cardiology consult if needed --Hypernatremia Trend sodium Free water via feeding tube --Abdominal distention due to bladder outlet obstruction, resolved CT abdomen showed bladder outlet obstruction, urology consulted s/p drake placement by urology on 03/09 --Hypotension possibly from septic shock and bladder outlet obstruction improved following placing drake --Hypernatremia due to hypovolumia free water with TF and place on 1/2NS --DVT prophylaxis; Lovenox The high probability of a clinically significant, sudden or life threatening deterioration of the [cardiac, renal and respiratory] system(s) required my full and direct attention, intervention and personal management. The aggregate critical care time was [34] minutes. 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 Patient was on a trilogy machine for breathing 18/11. EMS arrived, patient had O2 sats in the 80s. EMS attempted to place patient on their CPAP machine, however patient did not tolerate. Patient was admitted to the ICU with diagnosis of acute hypoxic respiratory failure and placed on BiPAP. Patient initially tolerated but later deteriorated with respiratory status. CTA chest showed no PE but significant for bilateral pneumonia. Doppler ultrasound also negative for DVT. COVID-19 test ordered. Due to persistent hypoxia, patient was intubated on 02/26/2020 at 1500. Patient now on mechanical ventilation in the ICU s/p trach placement and now unable to wean off from the mechanical ventilation. Patient now status post PEG placement for tube feeding. Patient most likely need long-term placement -LTAC versus SNF Daily course: 02/26/2020. Blood cultures are negative x48 hours and Covid testing negative as well. Continue antibiotics per ID recommendations for community-acquired bilateral pneumonia. Cardiology consultation for elevated troponin. Check echocardiogram. 02/27/2020. Events of yesterday noted with asystole following V. fib arrest. Patient currently on AC mode rate 20, tidal volume 400, FiO2 50% and a PEEP of 6. Follow-up echocardiogram for elevated troponin. Cardiology suspects NSTEMI Type 2 in the setting of acute resp failure. Chest CTA and BLE Dopplers neg. we will discontinue Decadron given the Covid PCR is negative. 02/28/2020. Spoke with the sister Felisa Eli who is the power of airbrush artist photography regarding advanced directives and she instructed me that she would like to continue with aggressive care at this time. I informed her of the guarded prognosis and high mortality/morbidity and she voiced understanding. Patient currently with AC mode ventilation rate 18, tidal volume 400, FiO2 40% and a PEEP of 6. Continue antibiotics for pneumonia. ID previously consulted. Also consult neurology with regards to ALS. 02/29/2020; patient is intubated and on CPAP patient is alert and oriented. Patient has ALS. Dr. Álvarez spoke with his sister and she wants aggressive care. Continue antibiotics for pneumonia. Neurology consulted for ALS. Prognosis poor 03/01/2020; patient is intubated and on CPAP, patient is alert and oriented. I spoke with his 2 sisters about the management plan. 03/02/2020; patient is intubated and on CPAP. Patient was alert and oriented. I spoke with Dr. mohr and he thinks patient may need mechanical ventilation, likely his disease progressed. Dr. Flowers did debridement this morning. 03/03/2020; patient is intubated and on CPAP, patient was on trilogy and BiPAP at home. Patient has ALS. on spontaneous breathing trial. Patient is alert and oriented but quadriplegic. Patient has severe bilateral pneumonia and is on cefepime and Vanco, ID is following. Patient has sacral decubitus ulcer and debridement was done by Dr. Flowers and there is no osteomyelitis. 03/05. Patient still on broad-spectrum antibiotics. Status post sacral decubitus ulcer debridements-no osteomyelitis. Patient is on AC 25/400/30% PEEP 5. No blood gas results today. 03/06. Plan for tracheostomy by surgery. Still remains intubated. Labs reviewed-sodium 150. Started on free water 200 every 8hr. trend sodium. 03/07: s/p trach placement today, patient placed back on mechanical ventilation with trach. Plan to resume tube feeding with NG tube. Continue to monitor vitals, monitor BMP. 03/08: Patient noted to have distended abdomen with low urinary output. Obtain bladder scan rule out urine retention, UA and urine culture, continue to follow clinically. 03/09: Patient noted to have low blood pressure with SBP as low as 70s. Ordered for 500 mils normal saline bolus. CT abdomen showed bladder outlet obstruction, urology consulted. 03/10: placed on drake by urology o/n, improved urine outpt. cont to monitor BMP. resuded TF - cont free water with TF. wean off from vent as tolerated. 03/11: Vitals stable. cont TF, wean off from vent as tolerated. start on 1/2 NS for hypernatremia - follow BMP 03/12: wean off vent as tolerated, plan for speech eval, cont Tf for now, cont iv fluid 03/13: unable to wean off from vent, unable to do speech therapy eval. will need PEG tube, cont supportive care for now, cont NG tube feeding 03/14: consulted GI for PEg placemnet, cont supportive care. remains on vent at night 03/15: Discussed with GI, plan for PEG tube placement possibly tomorrow. Continue supportive care and wean off from vent as tolerated. Hold Lovenox dose tonight. 03/16: family didnot consent for PEG placement yesterday. I spoke with the daughter today and she is now agreeable for PEG tube. I explained the necessity of the procedure with RN to the patient also and he nodded started on tube feeding, for the procedure. will cont supportive care. planned for PEG tube placement tomorrow. 03/17: s/p PEG placement today, patient tolerated well, cont supportive care 03/18: Started on tube feeding with new PEG tube, continue to wean off vent as tolerated Subjective Date of service: 03/18/20 Principal diagnosis: Ac on Ch Hypercapnic & hypoxemic Resp Failure; Severe Sepsis; Jamar PNA; ALS Interval history: Patient seen and examined Remains on mechanical ventilation with trach tube Discussed with RN at the bedside Vitals reviewed -BP stable Tolerating tube feeding with PEG tube Objective - Exam Narrative Exam: GENERAL: Awake. Intubated with trach tube HEAD: No signs of head trauma. EYES: Pupils are equal. Extraocular motions intact. EARS: Hearing grossly intact. MOUTH: Oropharynx is normal. NECK: No adenopathy, no JVD. CHEST: Coarse breath sounds bilaterally CARDIAC: Regular rate and rhythm. S1 and S2, without murmurs, gallops, or rubs. VASCULAR: No Edema. Peripheral pulses normal and equal in all extremities. ABDOMEN: Soft, non tender and nondistended. Bowel Sounds normal. PEG in place NEUROLOGIC EXAM: Awake, paraplegic SKIN: No obvious lesions - Constitutional Vitals: Vital Signs - 12hr 03/18/20 03/18/20 03/18/20 00:30 00:45 01:00 Temperature Pulse Rate 94 H 95 H 92 H Pulse Rate [ From Monitor] Respiratory 21 17 15 Rate Respiratory Rate [Left Hip] Blood Pressure 120/85 121/83 121/84 O2 Sat by Pulse 99 99 99 Oximetry 03/18/20 03/18/20 03/18/20 01:15 01:30 01:45 Temperature Pulse Rate 100 H 100 H 102 H Pulse Rate [ From Monitor] Respiratory 23 25 H 23 Rate Respiratory Rate [Left Hip] Blood Pressure 123/86 122/88 123/89 O2 Sat by Pulse 99 99 99 Oximetry 03/18/20 03/18/20 03/18/20 02:00 02:15 02:30 Temperature Pulse Rate 100 H 97 H 102 H Pulse Rate [ From Monitor] Respiratory 24 22 19 Rate Respiratory Rate [Left Hip] Blood Pressure 121/89 126/89 126/89 O2 Sat by Pulse 99 99 99 Oximetry 03/18/20 03/18/20 03/18/20 02:45 02:55 03:00 Temperature 98.8 F Pulse Rate 98 H 103 H Pulse Rate [ From Monitor] Respiratory 14 15 Rate Respiratory Rate [Left Hip] Blood Pressure 131/87 125/93 O2 Sat by Pulse 99 99 Oximetry 03/18/20 03/18/20 03/18/20 03:13 03:15 03:30 Temperature Pulse Rate 100 H 100 H 96 H Pulse Rate [ From Monitor] Respiratory 15 27 H Rate Respiratory Rate [Left Hip] Blood Pressure 125/90 131/92 121/85 O2 Sat by Pulse 99 99 98 Oximetry 03/18/20 03/18/20 03/18/20 03:45 04:00 04:15 Temperature Pulse Rate 90 100 H 98 H Pulse Rate [ 91 H From Monitor] Respiratory 14 20 21 Rate Respiratory Rate [Left Hip] Blood Pressure 128/88 133/93 131/89 O2 Sat by Pulse 99 99 99 Oximetry 03/18/20 03/18/20 03/18/20 04:30 04:45 05:00 Temperature Pulse Rate 90 95 H 97 H Pulse Rate [ From Monitor] Respiratory 15 24 21 Rate Respiratory Rate [Left Hip] Blood Pressure 130/88 129/94 132/93 O2 Sat by Pulse 99 99 99 Oximetry 03/18/20 03/18/20 03/18/20 05:15 05:30 05:45 Temperature Pulse Rate 101 H 97 H 100 H Pulse Rate [ From Monitor] Respiratory 20 16 15 Rate Respiratory Rate [Left Hip] Blood Pressure 134/92 134/92 143/93 O2 Sat by Pulse 99 99 99 Oximetry 03/18/20 03/18/20 03/18/20 06:00 06:15 06:30 Temperature Pulse Rate 104 H 106 H 101 H Pulse Rate [ From Monitor] Respiratory 17 19 14 Rate Respiratory Rate [Left Hip] Blood Pressure 133/90 131/88 122/87 O2 Sat by Pulse 99 99 99 Oximetry 03/18/20 03/18/20 03/18/20 06:45 07:00 07:15 Temperature Pulse Rate 118 H 90 97 H Pulse Rate [ From Monitor] Respiratory 21 14 15 Rate Respiratory Rate [Left Hip] Blood Pressure 113/81 119/77 127/84 O2 Sat by Pulse 98 98 97 Oximetry 03/18/20 03/18/20 03/18/20 07:30 07:42 07:45 Temperature Pulse Rate 88 83 91 H Pulse Rate [ From Monitor] Respiratory 13 13 Rate Respiratory Rate [Left Hip] Blood Pressure 109/71 117/84 117/84 O2 Sat by Pulse 99 99 98 Oximetry 03/18/20 03/18/20 03/18/20 08:00 08:15 08:30 Temperature Pulse Rate 114 H 89 100 H Pulse Rate [ 99 H From Monitor] Respiratory 10 L 12 11 L Rate Respiratory Rate [Left Hip] Blood Pressure 123/90 117/77 112/80 O2 Sat by Pulse 100 98 98 Oximetry 03/18/20 03/18/20 03/18/20 08:45 09:00 09:15 Temperature Pulse Rate 95 H 104 H 102 H Pulse Rate [ From Monitor] Respiratory 11 L 16 19 Rate Respiratory Rate [Left Hip] Blood Pressure 112/78 121/83 122/83 O2 Sat by Pulse 99 99 98 Oximetry 03/18/20 03/18/20 03/18/20 09:25 09:30 09:32 Temperature Pulse Rate 102 H 101 H Pulse Rate [ From Monitor] Respiratory 20 19 Rate Respiratory Rate [Left Hip] Blood Pressure 125/80 123/82 O2 Sat by Pulse 98 Oximetry 03/18/20 03/18/20 03/18/20 09:45 10:00 10:02 Temperature Pulse Rate 105 H 103 H Pulse Rate [ From Monitor] Respiratory 18 17 16 Rate Respiratory 16 Rate [Left Hip] Blood Pressure 116/84 122/78 O2 Sat by Pulse 97 97 Oximetry 03/18/20 03/18/20 03/18/20 10:15 10:30 10:45 Temperature Pulse Rate 93 H 93 H 95 H Pulse Rate [ From Monitor] Respiratory 14 21 20 Rate Respiratory Rate [Left Hip] Blood Pressure 115/78 117/77 123/77 O2 Sat by Pulse 97 98 98 Oximetry 03/18/20 03/18/20 03/18/20 11:00 11:15 11:23 Temperature Pulse Rate 98 H 90 92 H Pulse Rate [ From Monitor] Respiratory 19 25 H 26 H Rate Respiratory Rate [Left Hip] Blood Pressure 115/77 119/75 120/80 O2 Sat by Pulse 98 98 98 Oximetry 03/18/20 11:42 Temperature Pulse Rate Pulse Rate [ 94 H From Monitor] Respiratory 16 Rate Respiratory Rate [Left Hip] Blood Pressure O2 Sat by Pulse 100 Oximetry - Labs CBC & Chem 7: 03/19/20 08:05 03/19/20 08:05 Labs: Abnormal lab results 03/18/20 03/18/20 03/18/20 Range/Units 00:21 05:21 11:55 POC Glucose 124 H 138 H 119 H (70-105) mg/dL HEART Score - HEART Score Troponin: Troponin T 0.034 ng/mL (0.00-0.029) H D 02/24/20 19:35
[2020-03-18] MEDS: POLYETHYLENE GLYCOL 3350 17 GM POWDER PO SCH (22:08)
[2020-03-19 08:28] LABS: Eosinophils # (Auto) 0.2 K/mm3 (0.0-0.4); Monocytes # (Auto) 1.2 K/mm3 (0.0-0.8); Monocytes % (Auto) 7.3 % (0.0-7.3)
[2020-03-19 08:39] LABS: Blood Urea Nitrogen 13 mg/dL (9-20); Calcium 8.4 mg/dL (8.4-10.2); Hemolysis Index 2
[2020-03-19 08:42] LABS: BUN/Creatinine Ratio 65
[2020-03-19] MEDS: GLYCOPYRROLATE 2 MG TAB PO SCH ×3 (09:11→21:11)
[2020-03-19] MEDS: TAMSULOSIN 0.4 MG CAP PO SCH (09:11)
[2020-03-19] MEDS: METOPROLOL TARTRATE 25 MG TAB PO SCH (09:11)
[2020-03-19] MEDS: DOCUSATE SODIUM 100 MG/10 ML ORAL LIQD PO SCH ×3 (09:11→21:09)
[2020-03-19] MEDS: LANSOPRAZOLE 30 MG SOLUTAB FEEDTUBE SCH (09:13)
[2020-03-19 09:40] LABS: Hemoglobin 9.4 gm/dl (11.8-15.2); Red Blood Count 3.36 M/mm3 (3.65-5.03)
[2020-03-19 09:41] LABS: Hematocrit 28.8 % (35.5-45.6); Lymphocytes # (Auto) 1.3 K/mm3 (1.2-5.4); Lymphocytes % (Auto) 7.8 % (13.4-35.0); Mean Corpuscular HGB Conc 33 % (32-34); Mean Corpuscular Volume 86 fl (84-94); Platelet Count 567 K/mm3 (140-440); Red Cell Distribution Width 17.4 % (13.2-15.2)
[2020-03-19 09:42] LABS: Basophils # (Auto) 0.1 K/mm3 (0.0-0.1)
[2020-03-19] MEDS: MORPHINE 2 MG/1 ML INJ IV PRN ×3 (10:53→21:04)
--- NOTE | 2020-03-19 12:44 | Progress Note ---
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 Respiratory Failure Severe Sepsis with Shock Bilateral Pneumonia (Possible aspiration) History of ALS on Trilogy Oropharyngeal Dysphagia s/p PEG Acute toxic metabolic encephalopathy-resolved Elevated D-dimer Elevated troponin possibly type 2 ischemia - continue daytime PSV as tolerated, ATP as tolerated. - repeat CXR in am - continue Robinul & scopolamine for secretion control - Keep K at 4, Mg at 2 and Phos at 2.5 to optimize respiratory muscle function - wound care per RN/WCN, off loading, frequent turning, mobility per facility protocol - continue Scopolamine patch for secretion control - wean supplemental oxygen for target O2 sat's > 92% acutely - bronchodilators with pulmonary hygiene per RT - VAP bundle addressed, aspiration precautions, HOB >40 - continue lung protective strategies - continue bronchodilators with pulmonary hygiene per RT - wean per pulmonary driven protocols otherwise - sedation prn for target RASS 0 to -1 - s/p empiric antiinfectives per ID rec's (Rocephin and Zithromax) - enteral nutrition at goal rate as tolerated - accuchecks with glycemic control per SSI (While critically ill target blood glucose of 140-180 mg/dL; avoid hypoglycemia) - avoid nephrotoxins, renally dose all medications - avoid benzodiazepines, reduce the possibility of delirium - prn analgesia per CPOT score - Maintenance of sleep-wake cycle, avoid delirium - G.I. & VTE prophylaxis (Prevacid. Will add Enoxaparin) -Reardon in place for urinary retention and sacral decubitus ulcer - PT/OT/ROM exercises - Monitor hemodynamics closely - continue other care per attending / other consultants - discharge planning ongoing concurrently- LTACH evaluation .... Re-evaluate in am & prn CONDITION: CRITICAL PROGNOSIS: GUARDED CODE STATUS: FULL CODE The high probability of a clinically significant, sudden or life-threatening deterioration of the [respiratory, cardiovascular & neurologic] system(s) required my full and direct attention, intervention and personal management. The aggregate critical care time was [31] minutes without overlap. Time includes spent on; [x] Data Review and interpretation [x] Patient assessment and monitoring of vital signs [x] Documentation [x] Medication orders and management Subjective Date of service: 03/19/20 Principal diagnosis: Ac on Ch Hypercapnic & hypoxemic Resp Failure; Severe Sepsis; Jamar PNA; ALS Interval history: Patient is seen today for: Acute on Chronic Hypercapnic & hypoxemic Respiratory Failure; Severe Sepsis with Shock; Bilateral Pneumonia (Possible aspiration); History of ALS on Trilogy; Acute toxic metabolic encephalopathy Seen and examined at bedside; 24hour events reviewed; nursing and respiratory care staff consulted; no adverse overnight events reported to me; resting in bed; remains on MVS; s/p PEG placement, tolerating tube feedings. Tolerating PSV at the bedside. No fevers, no diarrhea, no vomiting. Objective Vital Signs - 12hr 03/19/20 03/19/20 03/19/20 00:45 01:00 01:15 Temperature Pulse Rate 105 H 103 H 102 H Pulse Rate [ From Monitor] Respiratory 19 22 12 Rate Blood Pressure 128/91 121/87 116/86 O2 Sat by Pulse 100 100 99 Oximetry O2 Sat by Pulse Oximetry [ Assessment] 03/19/20 03/19/20 03/19/20 01:30 01:45 02:00 Temperature Pulse Rate 103 H 102 H 105 H Pulse Rate [ From Monitor] Respiratory 23 15 18 Rate Blood Pressure 125/90 123/92 125/88 O2 Sat by Pulse 100 99 99 Oximetry O2 Sat by Pulse Oximetry [ Assessment] 03/19/20 03/19/20 03/19/20 02:15 02:30 02:45 Temperature Pulse Rate 113 H Pulse Rate [ From Monitor] Respiratory 22 Rate Blood Pressure 125/84 128/85 131/85 O2 Sat by Pulse 100 100 99 Oximetry O2 Sat by Pulse Oximetry [ Assessment] 03/19/20 03/19/20 03/19/20 03:00 03:15 03:30 Temperature Pulse Rate 95 H 90 76 Pulse Rate [ From Monitor] Respiratory 15 13 14 Rate Blood Pressure 115/78 113/75 106/71 O2 Sat by Pulse 99 98 100 Oximetry O2 Sat by Pulse Oximetry [ Assessment] 03/19/20 03/19/20 03/19/20 03:45 03:51 04:00 Temperature 98.4 F Pulse Rate 83 88 87 Pulse Rate [ 86 From Monitor] Respiratory 12 13 Rate Blood Pressure 105/70 104/68 105/69 O2 Sat by Pulse 99 99 98 Oximetry O2 Sat by Pulse Oximetry [ Assessment] 03/19/20 03/19/20 03/19/20 04:15 04:30 04:45 Temperature Pulse Rate 93 H 92 H 85 Pulse Rate [ From Monitor] Respiratory 14 14 13 Rate Blood Pressure 96/63 97/62 102/62 O2 Sat by Pulse 97 99 99 Oximetry O2 Sat by Pulse Oximetry [ Assessment] 03/19/20 03/19/20 03/19/20 05:00 05:15 05:30 Temperature Pulse Rate 97 H 93 H 101 H Pulse Rate [ From Monitor] Respiratory 15 17 16 Rate Blood Pressure 116/77 113/76 114/79 O2 Sat by Pulse 99 99 99 Oximetry O2 Sat by Pulse Oximetry [ Assessment] 03/19/20 03/19/20 03/19/20 05:45 06:00 06:15 Temperature Pulse Rate 99 H 93 H 87 Pulse Rate [ From Monitor] Respiratory 15 15 13 Rate Blood Pressure 110/75 112/74 100/69 O2 Sat by Pulse 99 99 100 Oximetry O2 Sat by Pulse Oximetry [ Assessment] 03/19/20 03/19/20 03/19/20 06:30 06:45 07:00 Temperature Pulse Rate 80 90 101 H Pulse Rate [ From Monitor] Respiratory 12 12 13 Rate Blood Pressure 92/60 98/64 108/75 O2 Sat by Pulse 99 98 100 Oximetry O2 Sat by Pulse Oximetry [ Assessment] 03/19/20 03/19/20 03/19/20 07:15 07:30 07:45 Temperature Pulse Rate 90 101 H 97 H Pulse Rate [ From Monitor] Respiratory 16 10 L 17 Rate Blood Pressure 105/66 110/73 114/74 O2 Sat by Pulse 98 99 99 Oximetry O2 Sat by Pulse Oximetry [ Assessment] 03/19/20 03/19/20 03/19/20 07:50 08:00 08:15 Temperature Pulse Rate 97 H 110 H 87 Pulse Rate [ 88 From Monitor] Respiratory 11 L 15 Rate Blood Pressure 115/77 106/75 108/69 O2 Sat by Pulse 99 100 98 Oximetry O2 Sat by Pulse 99 Oximetry [ Assessment] 03/19/20 03/19/20 03/19/20 08:30 08:45 09:00 Temperature Pulse Rate 82 97 H 84 Pulse Rate [ From Monitor] Respiratory 14 16 14 Rate Blood Pressure 97/63 111/77 101/68 O2 Sat by Pulse 99 98 99 Oximetry O2 Sat by Pulse Oximetry [ Assessment] 03/19/20 03/19/20 03/19/20 09:11 09:15 09:30 Temperature Pulse Rate 88 89 94 H Pulse Rate [ From Monitor] Respiratory 14 14 Rate Blood Pressure 102/65 96/63 120/81 O2 Sat by Pulse 99 97 Oximetry O2 Sat by Pulse Oximetry [ Assessment] 03/19/20 03/19/20 03/19/20 09:45 10:00 10:15 Temperature Pulse Rate 93 H 100 H 96 H Pulse Rate [ From Monitor] Respiratory 13 20 18 Rate Blood Pressure 120/81 120/84 120/84 O2 Sat by Pulse 99 98 97 Oximetry O2 Sat by Pulse Oximetry [ Assessment] 03/19/20 03/19/20 03/19/20 10:30 10:45 10:53 Temperature Pulse Rate 98 H 99 H Pulse Rate [ From Monitor] Respiratory 20 20 19 Rate Blood Pressure 128/85 128/85 O2 Sat by Pulse 99 100 Oximetry O2 Sat by Pulse Oximetry [ Assessment] 03/19/20 03/19/20 03/19/20 11:00 11:15 11:30 Temperature Pulse Rate 98 H 89 102 H Pulse Rate [ From Monitor] Respiratory 16 20 21 Rate Blood Pressure 123/86 123/86 129/88 O2 Sat by Pulse 99 86 94 Oximetry O2 Sat by Pulse Oximetry [ Assessment] 03/19/20 03/19/20 11:45 12:00 Temperature Pulse Rate 106 H 102 H Pulse Rate [ 103 H From Monitor] Respiratory 19 22 Rate Blood Pressure 129/88 124/85 O2 Sat by Pulse 98 99 Oximetry O2 Sat by Pulse Oximetry [ Assessment] Constitutional: no acute distress, other (thin middle aged male with normal respiratory effort at rest on MVS) Eyes: non-icteric ENT: oropharynx moist, other (S/P Tracheostomy) Neck: supple, no lymphadenopathy, no JVD Effort: mildly labored Ascultation: Bilateral: clear, diminished breath sounds, wheezes, rhonchi (and referred upper airway sounds) Percussion: Bilateral: not dull Cardiovascular: regular rate and rhythm, other (S1,S2, no murmurs) Gastrointestinal: normoactive bowel sounds, soft, non-tender, non-distended, other (+ distended but non tender suprapubis) Integumentary: normal, decubitus ulcer (sacral / gluteal) Extremities: no cyanosis, no edema, pulses normal, other (atrophic looking limbs) Neurologic: pupils equal and round, other (motor strength in extremities 1-2/5, awkae, alert, mouths words to make needs known) Psychiatric: depressed CBC and BMP: 03/19/20 08:05 03/19/20 08:05 ABG, PT/INR, D-dimer: ABG ABG pH 7.371 (7.320-7.450) 03/08/20 12:34 POC ABG pCO2 63.1 mmHg (32.0-48.0) H 03/08/20 12:34 ABG pCO2 60.1 mm Hg 03/06/20 04:34 POC ABG pO2 90.5 mmHg (83-108) 03/08/20 12:34 ABG pO2 88.6 mm Hg (80.0-90.0) 03/06/20 04:34 POC ABG HCO3 35.7 03/08/20 12:34 ABG O2 Saturation 97.0 % (95.0-99.0) 03/06/20 04:34 PT/INR, D-dimer PT 15.6 Sec. (12.2-14.9) H 02/24/20 09:19 INR 1.21 (0.87-1.13) H 02/24/20 09:19 D-Dimer 1311.96 ng/mlDDU (0-234) H 02/24/20 09:19 Abnormal lab findings: Abnormal Labs 02/24/20 02/24/20 02/24/20 09:19 09:19 09:19 WBC 20.2 H RBC 5.05 H Hgb Hct MCV MCH RDW 15.3 H Plt Count Lymph % (Auto) Kay # (Auto) Seg Neutrophils % Seg Neuts % (Manual) 86.0 H Lymphocytes % (Manual) 1.0 L Monocytes % (Manual) Seg Neutrophils # Seg Neutrophils # Man 17.4 H Lymphocytes # (Manual) 0.2 L Monocytes # (Manual) Eosinophils # (Manual) Basophils # (Manual) PT 15.6 H INR 1.21 H D-Dimer 1311.96 H ABG pH POC ABG pCO2 POC ABG pO2 ABG pO2 ABG HCO3 ABG O2 Saturation ABG Base Excess ABG Hemoglobin ABG Oxyhemoglobin ABG Potassium ABG Glucose Oxyhemoglobin Carboxyhemoglobin Sodium 135 L Potassium 3.2 L Chloride 92.2 L Carbon Dioxide BUN 6 L Creatinine < 0.2 L Glucose 124 H POC Glucose Calcium Ferritin Total Bilirubin 2.30 H Alkaline Phosphatase 132 H Lactate Dehydrogenase Troponin T 0.080 H C-Reactive Protein Total Protein Albumin 3.6 L Prealbumin LDL Cholesterol Direct 41 L Arterial Blood Glucose Arterial Blood Ionized Calcium Urine WBC (Auto) 02/24/20 02/24/20 02/24/20 09:19 09:58 10:01 WBC RBC Hgb Hct MCV MCH RDW Plt Count Lymph % (Auto) Kay # (Auto) Seg Neutrophils % Seg Neuts % (Manual) Lymphocytes % (Manual) Monocytes % (Manual) Seg Neutrophils # Seg Neutrophils # Man Lymphocytes # (Manual) Monocytes # (Manual) Eosinophils # (Manual) Basophils # (Manual) PT INR D-Dimer ABG pH 7.176 L* POC ABG pCO2 POC ABG pO2 ABG pO2 91.2 H ABG HCO3 ABG O2 Saturation ABG Base Excess -4.6 L ABG Hemoglobin ABG Oxyhemoglobin ABG Potassium ABG Glucose Oxyhemoglobin 92.6 L Carboxyhemoglobin Sodium Potassium Chloride Carbon Dioxide BUN Creatinine Glucose POC Glucose Calcium Ferritin 1715.0 H Total Bilirubin Alkaline Phosphatase Lactate Dehydrogenase 303 H Troponin T C-Reactive Protein 26.10 H Total Protein Albumin Prealbumin LDL Cholesterol Direct Arterial Blood Glucose Arterial Blood Ionized Calcium Urine WBC (Auto) 02/24/20 02/24/20 02/24/20 11:52 13:45 19:35 WBC RBC Hgb Hct MCV MCH RDW Plt Count Lymph % (Auto) Kay # (Auto) Seg Neutrophils % Seg Neuts % (Manual) Lymphocytes % (Manual) Monocytes % (Manual) Seg Neutrophils # Seg Neutrophils # Man Lymphocytes # (Manual) Monocytes # (Manual) Eosinophils # (Manual) Basophils # (Manual) PT INR D-Dimer ABG pH 7.051 L* 7.300 L POC ABG pCO2 POC ABG pO2 ABG pO2 94.7 H 75.1 L ABG HCO3 18.0 L ABG O2 Saturation 93.5 L ABG Base Excess -6.8 L -7.8 L ABG Hemoglobin 13.2 L 11.9 L ABG Oxyhemoglobin ABG Potassium ABG Glucose Oxyhemoglobin 91.0 L 92.7 L Carboxyhemoglobin Sodium Potassium Chloride Carbon Dioxide BUN Creatinine Glucose POC Glucose Calcium Ferritin Total Bilirubin Alkaline Phosphatase Lactate Dehydrogenase Troponin T 0.034 H D C-Reactive Protein Total Protein Albumin Prealbumin LDL Cholesterol Direct Arterial Blood Glucose Arterial Blood Ionized Calcium Urine WBC (Auto) 02/25/20 02/25/20 02/25/20 04:00 04:00 12:26 WBC 22.9 H RBC Hgb Hct MCV 83 L MCH 27 L RDW Plt Count 468 H Lymph % (Auto) Kay # (Auto) Seg Neutrophils % Seg Neuts % (Manual) 89.0 H Lymphocytes % (Manual) 7.0 L Monocytes % (Manual) Seg Neutrophils # Seg Neutrophils # Man 20.4 H Lymphocytes # (Manual) Monocytes # (Manual) Eosinophils # (Manual) Basophils # (Manual) PT INR D-Dimer ABG pH POC ABG pCO2 POC ABG pO2 ABG pO2 ABG HCO3 ABG O2 Saturation ABG Base Excess ABG Hemoglobin ABG Oxyhemoglobin ABG Potassium 2.6 L ABG Glucose 142 H Oxyhemoglobin Carboxyhemoglobin Sodium Potassium 3.2 L Chloride Carbon Dioxide 18 L BUN Creatinine 0.2 L Glucose 114 H POC Glucose Calcium Ferritin Total Bilirubin Alkaline Phosphatase Lactate Dehydrogenase Troponin T C-Reactive Protein Total Protein Albumin 3.5 L Prealbumin LDL Cholesterol Direct Arterial Blood Glucose 142 H Arterial Blood Ionized Calcium Urine WBC (Auto) 02/26/20 02/26/20 02/26/20 15:58 17:00 23:43 WBC RBC Hgb Hct MCV MCH RDW Plt Count Lymph % (Auto) Kay # (Auto) Seg Neutrophils % Seg Neuts % (Manual) Lymphocytes % (Manual) Monocytes % (Manual) Seg Neutrophils # Seg Neutrophils # Man Lymphocytes # (Manual) Monocytes # (Manual) Eosinophils # (Manual) Basophils # (Manual) PT INR D-Dimer ABG pH 7.502 H POC ABG pCO2 POC ABG pO2 213.6 H ABG pO2 ABG HCO3 ABG O2 Saturation ABG Base Excess ABG Hemoglobin ABG Oxyhemoglobin 99.2 H ABG Potassium 2.9 L ABG Glucose 160 H Oxyhemoglobin Carboxyhemoglobin 0.4 L Sodium Potassium Chloride Carbon Dioxide BUN Creatinine Glucose POC Glucose 189 H 120 H Calcium Ferritin Total Bilirubin Alkaline Phosphatase Lactate Dehydrogenase Troponin T C-Reactive Protein Total Protein Albumin Prealbumin LDL Cholesterol Direct Arterial Blood Glucose 160 H Arterial Blood Ionized Calcium 4.5 L Urine WBC (Auto) 02/27/20 02/27/20 02/27/20 05:00 07:04 17:45 WBC RBC Hgb Hct MCV MCH RDW Plt Count Lymph % (Auto) Kay # (Auto) Seg Neutrophils % Seg Neuts % (Manual) Lymphocytes % (Manual) Monocytes % (Manual) Seg Neutrophils # Seg Neutrophils # Man Lymphocytes # (Manual) Monocytes # (Manual) Eosinophils # (Manual) Basophils # (Manual) PT INR D-Dimer ABG pH 7.524 H POC ABG pCO2 POC ABG pO2 ABG pO2 ABG HCO3 ABG O2 Saturation ABG Base Excess ABG Hemoglobin ABG Oxyhemoglobin ABG Potassium 3.0 L ABG Glucose 143 H Oxyhemoglobin Carboxyhemoglobin Sodium Potassium Chloride Carbon Dioxide BUN Creatinine Glucose POC Glucose 154 H 175 H Calcium Ferritin Total Bilirubin Alkaline Phosphatase Lactate Dehydrogenase Troponin T C-Reactive Protein Total Protein Albumin Prealbumin LDL Cholesterol Direct Arterial Blood Glucose 143 H Arterial Blood Ionized Calcium Urine WBC (Auto) 02/27/20 02/28/20 02/28/20 Unknown 00:21 04:15 WBC 18.7 H RBC Hgb Hct MCV MCH RDW Plt Count Lymph % (Auto) 8.7 L Kay # (Auto) 1.2 H Seg Neutrophils % 84.6 H Seg Neuts % (Manual) Lymphocytes % (Manual) Monocytes % (Manual) Seg Neutrophils # 15.9 H Seg Neutrophils # Man Lymphocytes # (Manual) Monocytes # (Manual) Eosinophils # (Manual) Basophils # (Manual) PT INR D-Dimer ABG pH POC ABG pCO2 POC ABG pO2 ABG pO2 ABG HCO3 ABG O2 Saturation ABG Base Excess ABG Hemoglobin ABG Oxyhemoglobin ABG Potassium ABG Glucose Oxyhemoglobin Carboxyhemoglobin Sodium Potassium 2.9 L* Chloride Carbon Dioxide 33 H D BUN Creatinine < 0.2 L Glucose 157 H POC Glucose 134 H Calcium Ferritin Total Bilirubin Alkaline Phosphatase Lactate Dehydrogenase Troponin T C-Reactive Protein Total Protein Albumin Prealbumin LDL Cholesterol Direct Arterial Blood Glucose Arterial Blood Ionized Calcium Urine WBC (Auto) 02/28/20 02/28/20 02/28/20 04:15 05:16 05:39 WBC RBC Hgb Hct MCV MCH RDW Plt Count Lymph % (Auto) Kay # (Auto) Seg Neutrophils % Seg Neuts % (Manual) Lymphocytes % (Manual) Monocytes % (Manual) Seg Neutrophils # Seg Neutrophils # Man Lymphocytes # (Manual) Monocytes # (Manual) Eosinophils # (Manual) Basophils # (Manual) PT INR D-Dimer ABG pH POC ABG pCO2 POC ABG pO2 ABG pO2 142.9 H ABG HCO3 34.1 H ABG O2 Saturation ABG Base Excess 8.3 H ABG Hemoglobin ABG Oxyhemoglobin ABG Potassium ABG Glucose Oxyhemoglobin Carboxyhemoglobin Sodium 151 H Potassium Chloride Carbon Dioxide 32 H BUN Creatinine 0.2 L Glucose 167 H POC Glucose 138 H Calcium Ferritin Total Bilirubin Alkaline Phosphatase Lactate Dehydrogenase Troponin T C-Reactive Protein Total Protein Albumin Prealbumin LDL Cholesterol Direct Arterial Blood Glucose Arterial Blood Ionized Calcium Urine WBC (Auto) 02/28/20 02/28/20 02/28/20 11:05 11:33 12:54 WBC RBC Hgb Hct MCV MCH RDW Plt Count Lymph % (Auto) Kay # (Auto) Seg Neutrophils % Seg Neuts % (Manual) Lymphocytes % (Manual) Monocytes % (Manual) Seg Neutrophils # Seg Neutrophils # Man Lymphocytes # (Manual) Monocytes # (Manual) Eosinophils # (Manual) Basophils # (Manual) PT INR D-Dimer ABG pH POC ABG pCO2 POC ABG pO2 ABG pO2 ABG HCO3 ABG O2 Saturation ABG Base Excess ABG Hemoglobin ABG Oxyhemoglobin ABG Potassium ABG Glucose Oxyhemoglobin Carboxyhemoglobin Sodium Potassium Chloride Carbon Dioxide BUN Creatinine Glucose POC Glucose 160 H Calcium Ferritin Total Bilirubin Alkaline Phosphatase Lactate Dehydrogenase Troponin T C-Reactive Protein 4.70 H Total Protein Albumin Prealbumin 0.090 L LDL Cholesterol Direct Arterial Blood Glucose Arterial Blood Ionized Calcium Urine WBC (Auto) 02/28/20 02/29/20 02/29/20 17:34 00:44 04:05 WBC 19.6 H RBC Hgb Hct MCV MCH 27 L RDW 15.4 H Plt Count Lymph % (Auto) Kay # (Auto) Seg Neutrophils % Seg Neuts % (Manual) 86.0 H Lymphocytes % (Manual) 7.0 L Monocytes % (Manual) Seg Neutrophils # Seg Neutrophils # Man 16.9 H Lymphocytes # (Manual) Monocytes # (Manual) 1.2 H Eosinophils # (Manual) Basophils # (Manual) PT INR D-Dimer ABG pH POC ABG pCO2 POC ABG pO2 ABG pO2 ABG HCO3 ABG O2 Saturation ABG Base Excess ABG Hemoglobin ABG Oxyhemoglobin ABG Potassium ABG Glucose Oxyhemoglobin Carboxyhemoglobin Sodium Potassium Chloride Carbon Dioxide BUN Creatinine Glucose POC Glucose 136 H 156 H Calcium Ferritin Total Bilirubin Alkaline Phosphatase Lactate Dehydrogenase Troponin T C-Reactive Protein Total Protein Albumin Prealbumin LDL Cholesterol Direct Arterial Blood Glucose Arterial Blood Ionized Calcium Urine WBC (Auto) 02/29/20 02/29/20 02/29/20 04:05 05:14 05:33 WBC RBC Hgb Hct MCV MCH RDW Plt Count Lymph % (Auto) Kay # (Auto) Seg Neutrophils % Seg Neuts % (Manual) Lymphocytes % (Manual) Monocytes % (Manual) Seg Neutrophils # Seg Neutrophils # Man Lymphocytes # (Manual) Monocytes # (Manual) Eosinophils # (Manual) Basophils # (Manual) PT INR D-Dimer ABG pH POC ABG pCO2 54.3 H POC ABG pO2 124.8 H ABG pO2 ABG HCO3 ABG O2 Saturation ABG Base Excess ABG Hemoglobin ABG Oxyhemoglobin ABG Potassium ABG Glucose 185 H Oxyhemoglobin Carboxyhemoglobin Sodium 148 H Potassium Chloride Carbon Dioxide 33 H BUN Creatinine < 0.2 L Glucose 173 H POC Glucose 152 H Calcium Ferritin Total Bilirubin Alkaline Phosphatase Lactate Dehydrogenase Troponin T C-Reactive Protein Total Protein Albumin Prealbumin LDL Cholesterol Direct Arterial Blood Glucose 185 H Arterial Blood Ionized Calcium Urine WBC (Auto) 03/01/20 03/01/20 03/01/20 00:00 03:45 04:33 WBC 23.1 H RBC Hgb Hct MCV MCH 27 L RDW 15.3 H Plt Count Lymph % (Auto) Kay # (Auto) Seg Neutrophils % Seg Neuts % (Manual) 92.0 H Lymphocytes % (Manual) 6.0 L Monocytes % (Manual) Seg Neutrophils # Seg Neutrophils # Man 21.3 H Lymphocytes # (Manual) Monocytes # (Manual) Eosinophils # (Manual) 0.5 H Basophils # (Manual) PT INR D-Dimer ABG pH 7.492 H POC ABG pCO2 POC ABG pO2 ABG pO2 157.1 H ABG HCO3 32.3 H ABG O2 Saturation ABG Base Excess 8.1 H ABG Hemoglobin 13.2 L ABG Oxyhemoglobin ABG Potassium ABG Glucose Oxyhemoglobin Carboxyhemoglobin Sodium Potassium Chloride Carbon Dioxide BUN Creatinine Glucose POC Glucose 109 H Calcium Ferritin Total Bilirubin Alkaline Phosphatase Lactate Dehydrogenase Troponin T C-Reactive Protein Total Protein Albumin Prealbumin LDL Cholesterol Direct Arterial Blood Glucose Arterial Blood Ionized Calcium Urine WBC (Auto) 03/01/20 03/01/20 03/01/20 04:33 05:29 12:32 WBC RBC Hgb Hct MCV MCH RDW Plt Count Lymph % (Auto) Kay # (Auto) Seg Neutrophils % Seg Neuts % (Manual) Lymphocytes % (Manual) Monocytes % (Manual) Seg Neutrophils # Seg Neutrophils # Man Lymphocytes # (Manual) Monocytes # (Manual) Eosinophils # (Manual) Basophils # (Manual) PT INR D-Dimer ABG pH POC ABG pCO2 POC ABG pO2 ABG pO2 ABG HCO3 ABG O2 Saturation ABG Base Excess ABG Hemoglobin ABG Oxyhemoglobin ABG Potassium ABG Glucose Oxyhemoglobin Carboxyhemoglobin Sodium 146 H Potassium Chloride Carbon Dioxide 32 H BUN Creatinine < 0.2 L Glucose 120 H POC Glucose 120 H 128 H Calcium Ferritin Total Bilirubin Alkaline Phosphatase Lactate Dehydrogenase Troponin T C-Reactive Protein Total Protein Albumin Prealbumin LDL Cholesterol Direct Arterial Blood Glucose Arterial Blood Ionized Calcium Urine WBC (Auto) 03/01/20 03/01/20 03/02/20 17:38 23:46 06:13 WBC RBC Hgb Hct MCV MCH RDW Plt Count Lymph % (Auto) Kay # (Auto) Seg Neutrophils % Seg Neuts % (Manual) Lymphocytes % (Manual) Monocytes % (Manual) Seg Neutrophils # Seg Neutrophils # Man Lymphocytes # (Manual) Monocytes # (Manual) Eosinophils # (Manual) Basophils # (Manual) PT INR D-Dimer ABG pH POC ABG pCO2 POC ABG pO2 ABG pO2 ABG HCO3 ABG O2 Saturation ABG Base Excess ABG Hemoglobin ABG Oxyhemoglobin ABG Potassium ABG Glucose Oxyhemoglobin Carboxyhemoglobin Sodium Potassium Chloride Carbon Dioxide BUN Creatinine Glucose POC Glucose 114 H 121 H 120 H Calcium Ferritin Total Bilirubin Alkaline Phosphatase Lactate Dehydrogenase Troponin T C-Reactive Protein Total Protein Albumin Prealbumin LDL Cholesterol Direct Arterial Blood Glucose Arterial Blood Ionized Calcium Urine WBC (Auto) 03/02/20 03/02/20 03/03/20 09:47 09:47 10:21 WBC 23.6 H RBC Hgb Hct MCV MCH RDW 15.3 H Plt Count 494 H Lymph % (Auto) Kay # (Auto) Seg Neutrophils % Seg Neuts % (Manual) 85.0 H Lymphocytes % (Manual) 6.0 L Monocytes % (Manual) Seg Neutrophils # Seg Neutrophils # Man 20.1 H Lymphocytes # (Manual) Monocytes # (Manual) 1.7 H Eosinophils # (Manual) Basophils # (Manual) PT INR D-Dimer ABG pH POC ABG pCO2 POC ABG pO2 ABG pO2 ABG HCO3 ABG O2 Saturation ABG Base Excess ABG Hemoglobin ABG Oxyhemoglobin ABG Potassium 3.3 L ABG Glucose 158 H Oxyhemoglobin Carboxyhemoglobin Sodium Potassium Chloride Carbon Dioxide BUN Creatinine < 0.2 L Glucose 177 H POC Glucose Calcium Ferritin Total Bilirubin Alkaline Phosphatase Lactate Dehydrogenase Troponin T C-Reactive Protein Total Protein Albumin Prealbumin LDL Cholesterol Direct Arterial Blood Glucose 158 H Arterial Blood Ionized Calcium Urine WBC (Auto) 03/03/20 03/04/20 03/04/20 21:30 00:00 12:23 WBC RBC Hgb Hct MCV MCH RDW Plt Count Lymph % (Auto) Kay # (Auto) Seg Neutrophils % Seg Neuts % (Manual) Lymphocytes % (Manual) Monocytes % (Manual) Seg Neutrophils # Seg Neutrophils # Man Lymphocytes # (Manual) Monocytes # (Manual) Eosinophils # (Manual) Basophils # (Manual) PT INR D-Dimer ABG pH 7.328 L POC ABG pCO2 POC ABG pO2 ABG pO2 68.4 L ABG HCO3 35.0 H ABG O2 Saturation 93.9 L ABG Base Excess 6.8 H ABG Hemoglobin 12.7 L ABG Oxyhemoglobin ABG Potassium ABG Glucose Oxyhemoglobin 91.9 L Carboxyhemoglobin Sodium Potassium Chloride Carbon Dioxide BUN Creatinine Glucose POC Glucose 187 H 163 H Calcium Ferritin Total Bilirubin Alkaline Phosphatase Lactate Dehydrogenase Troponin T C-Reactive Protein Total Protein Albumin Prealbumin LDL Cholesterol Direct Arterial Blood Glucose Arterial Blood Ionized Calcium Urine WBC (Auto) 03/04/20 03/04/20 03/05/20 18:15 21:30 06:02 WBC RBC Hgb Hct MCV MCH RDW Plt Count Lymph % (Auto) Kay # (Auto) Seg Neutrophils % Seg Neuts % (Manual) Lymphocytes % (Manual) Monocytes % (Manual) Seg Neutrophils # Seg Neutrophils # Man Lymphocytes # (Manual) Monocytes # (Manual) Eosinophils # (Manual) Basophils # (Manual) PT INR D-Dimer ABG pH 7.297 L POC ABG pCO2 POC ABG pO2 ABG pO2 ABG HCO3 41.0 H ABG O2 Saturation ABG Base Excess 11.0 H ABG Hemoglobin 13.1 L ABG Oxyhemoglobin ABG Potassium ABG Glucose Oxyhemoglobin 94.5 L Carboxyhemoglobin Sodium Potassium Chloride Carbon Dioxide BUN Creatinine Glucose POC Glucose 192 H 127 H Calcium Ferritin Total Bilirubin Alkaline Phosphatase Lactate Dehydrogenase Troponin T C-Reactive Protein Total Protein Albumin Prealbumin LDL Cholesterol Direct Arterial Blood Glucose Arterial Blood Ionized Calcium Urine WBC (Auto) 03/05/20 03/05/20 03/06/20 12:09 16:42 00:24 WBC RBC Hgb Hct MCV MCH RDW Plt Count Lymph % (Auto) Kay # (Auto) Seg Neutrophils % Seg Neuts % (Manual) Lymphocytes % (Manual) Monocytes % (Manual) Seg Neutrophils # Seg Neutrophils # Man Lymphocytes # (Manual) Monocytes # (Manual) Eosinophils # (Manual) Basophils # (Manual) PT INR D-Dimer ABG pH POC ABG pCO2 POC ABG pO2 ABG pO2 ABG HCO3 ABG O2 Saturation ABG Base Excess ABG Hemoglobin ABG Oxyhemoglobin ABG Potassium ABG Glucose Oxyhemoglobin Carboxyhemoglobin Sodium Potassium Chloride Carbon Dioxide BUN Creatinine Glucose POC Glucose 147 H 114 H 134 H Calcium Ferritin Total Bilirubin Alkaline Phosphatase Lactate Dehydrogenase Troponin T C-Reactive Protein Total Protein Albumin Prealbumin LDL Cholesterol Direct Arterial Blood Glucose Arterial Blood Ionized Calcium Urine WBC (Auto) 03/06/20 03/06/20 03/06/20 04:34 05:53 06:08 WBC 25.4 H RBC Hgb 10.5 L Hct 32.7 L MCV MCH 27 L RDW 15.3 H Plt Count 634 H Lymph % (Auto) Kay # (Auto) Seg Neutrophils % Seg Neuts % (Manual) 88.0 H Lymphocytes % (Manual) 2.0 L Monocytes % (Manual) 8.0 H Seg Neutrophils # Seg Neutrophils # Man 22.4 H Lymphocytes # (Manual) 0.5 L Monocytes # (Manual) 2.0 H Eosinophils # (Manual) Basophils # (Manual) PT INR D-Dimer ABG pH POC ABG pCO2 POC ABG pO2 ABG pO2 ABG HCO3 37.9 H ABG O2 Saturation ABG Base Excess 11.4 H ABG Hemoglobin 10.6 L ABG Oxyhemoglobin ABG Potassium ABG Glucose Oxyhemoglobin 94.7 L Carboxyhemoglobin Sodium Potassium Chloride Carbon Dioxide BUN Creatinine Glucose POC Glucose 135 H Calcium Ferritin Total Bilirubin Alkaline Phosphatase Lactate Dehydrogenase Troponin T C-Reactive Protein Total Protein Albumin Prealbumin LDL Cholesterol Direct Arterial Blood Glucose Arterial Blood Ionized Calcium Urine WBC (Auto) 03/06/20 03/06/20 03/06/20 06:08 12:19 19:10 WBC RBC Hgb Hct MCV MCH RDW Plt Count Lymph % (Auto) Kay # (Auto) Seg Neutrophils % Seg Neuts % (Manual) Lymphocytes % (Manual) Monocytes % (Manual) Seg Neutrophils # Seg Neutrophils # Man Lymphocytes # (Manual) Monocytes # (Manual) Eosinophils # (Manual) Basophils # (Manual) PT INR D-Dimer ABG pH POC ABG pCO2 POC ABG pO2 ABG pO2 ABG HCO3 ABG O2 Saturation ABG Base Excess ABG Hemoglobin ABG Oxyhemoglobin ABG Potassium ABG Glucose Oxyhemoglobin Carboxyhemoglobin Sodium 150 H D Potassium Chloride Carbon Dioxide 39 H D BUN 23 H Creatinine < 0.2 L Glucose 144 H POC Glucose 169 H 152 H Calcium Ferritin Total Bilirubin Alkaline Phosphatase Lactate Dehydrogenase Troponin T C-Reactive Protein Total Protein Albumin 3.3 L Prealbumin LDL Cholesterol Direct Arterial Blood Glucose Arterial Blood Ionized Calcium Urine WBC (Auto) 03/06/20 03/07/20 03/07/20 23:58 04:25 04:25 WBC 22.1 H RBC Hgb 10.9 L Hct 32.9 L MCV MCH RDW 15.5 H Plt Count 739 H Lymph % (Auto) 7.8 L Kay # (Auto) 1.3 H Seg Neutrophils % 85.5 H Seg Neuts % (Manual) Lymphocytes % (Manual) Monocytes % (Manual) Seg Neutrophils # 18.9 H Seg Neutrophils # Man Lymphocytes # (Manual) Monocytes # (Manual) Eosinophils # (Manual) Basophils # (Manual) PT INR D-Dimer ABG pH POC ABG pCO2 POC ABG pO2 ABG pO2 ABG HCO3 ABG O2 Saturation ABG Base Excess ABG Hemoglobin ABG Oxyhemoglobin ABG Potassium ABG Glucose Oxyhemoglobin Carboxyhemoglobin Sodium 146 H Potassium Chloride Carbon Dioxide 37 H BUN Creatinine < 0.2 L Glucose 118 H POC Glucose 111 H Calcium Ferritin Total Bilirubin Alkaline Phosphatase Lactate Dehydrogenase Troponin T C-Reactive Protein Total Protein Albumin 3.7 L Prealbumin LDL Cholesterol Direct Arterial Blood Glucose Arterial Blood Ionized Calcium Urine WBC (Auto) 03/07/20 03/07/20 03/07/20 05:20 17:45 23:32 WBC RBC Hgb Hct MCV MCH RDW Plt Count Lymph % (Auto) Kay # (Auto) Seg Neutrophils % Seg Neuts % (Manual) Lymphocytes % (Manual) Monocytes % (Manual) Seg Neutrophils # Seg Neutrophils # Man Lymphocytes # (Manual) Monocytes # (Manual) Eosinophils # (Manual) Basophils # (Manual) PT INR D-Dimer ABG pH POC ABG pCO2 POC ABG pO2 ABG pO2 ABG HCO3 ABG O2 Saturation ABG Base Excess ABG Hemoglobin ABG Oxyhemoglobin ABG Potassium ABG Glucose Oxyhemoglobin Carboxyhemoglobin Sodium Potassium Chloride Carbon Dioxide BUN Creatinine Glucose POC Glucose 113 H 124 H 210 H Calcium Ferritin Total Bilirubin Alkaline Phosphatase Lactate Dehydrogenase Troponin T C-Reactive Protein Total Protein Albumin Prealbumin LDL Cholesterol Direct Arterial Blood Glucose Arterial Blood Ionized Calcium Urine WBC (Auto) 03/08/20 03/08/20 03/08/20 05:35 06:43 06:43 WBC 28.9 H RBC 3.53 L Hgb 9.7 L Hct 30.3 L MCV MCH RDW 15.6 H Plt Count 578 H Lymph % (Auto) Kay # (Auto) Seg Neutrophils % Seg Neuts % (Manual) 93.0 H Lymphocytes % (Manual) 4.0 L Monocytes % (Manual) Seg Neutrophils # Seg Neutrophils # Man 26.9 H Lymphocytes # (Manual) Monocytes # (Manual) Eosinophils # (Manual) Basophils # (Manual) PT INR D-Dimer ABG pH POC ABG pCO2 POC ABG pO2 ABG pO2 ABG HCO3 ABG O2 Saturation ABG Base Excess ABG Hemoglobin ABG Oxyhemoglobin ABG Potassium ABG Glucose Oxyhemoglobin Carboxyhemoglobin Sodium 146 H Potassium Chloride Carbon Dioxide 35 H BUN 34 H Creatinine 0.3 L D Glucose 125 H POC Glucose 147 H Calcium Ferritin Total Bilirubin Alkaline Phosphatase Lactate Dehydrogenase Troponin T C-Reactive Protein Total Protein 5.9 L Albumin 3.2 L Prealbumin LDL Cholesterol Direct Arterial Blood Glucose Arterial Blood Ionized Calcium Urine WBC (Auto) 03/08/20 03/08/20 03/08/20 08:57 11:14 12:34 WBC RBC Hgb Hct MCV MCH RDW Plt Count Lymph % (Auto) Kay # (Auto) Seg Neutrophils % Seg Neuts % (Manual) Lymphocytes % (Manual) Monocytes % (Manual) Seg Neutrophils # Seg Neutrophils # Man Lymphocytes # (Manual) Monocytes # (Manual) Eosinophils # (Manual) Basophils # (Manual) PT INR D-Dimer ABG pH POC ABG pCO2 63.1 H POC ABG pO2 ABG pO2 ABG HCO3 ABG O2 Saturation ABG Base Excess ABG Hemoglobin 10.9 L ABG Oxyhemoglobin ABG Potassium ABG Glucose 176 H Oxyhemoglobin Carboxyhemoglobin Sodium Potassium Chloride Carbon Dioxide BUN Creatinine Glucose POC Glucose 171 H Calcium Ferritin Total Bilirubin Alkaline Phosphatase Lactate Dehydrogenase Troponin T C-Reactive Protein Total Protein Albumin Prealbumin LDL Cholesterol Direct Arterial Blood Glucose 176 H Arterial Blood Ionized Calcium 4.5 L Urine WBC (Auto) 10.0 H 03/08/20 03/08/20 03/09/20 18:02 23:43 05:49 WBC RBC Hgb Hct MCV MCH RDW Plt Count Lymph % (Auto) Kay # (Auto) Seg Neutrophils % Seg Neuts % (Manual) Lymphocytes % (Manual) Monocytes % (Manual) Seg Neutrophils # Seg Neutrophils # Man Lymphocytes # (Manual) Monocytes # (Manual) Eosinophils # (Manual) Basophils # (Manual) PT INR D-Dimer ABG pH POC ABG pCO2 POC ABG pO2 ABG pO2 ABG HCO3 ABG O2 Saturation ABG Base Excess ABG Hemoglobin ABG Oxyhemoglobin ABG Potassium ABG Glucose Oxyhemoglobin Carboxyhemoglobin Sodium Potassium Chloride Carbon Dioxide BUN Creatinine Glucose POC Glucose 157 H 134 H 163 H Calcium Ferritin Total Bilirubin Alkaline Phosphatase Lactate Dehydrogenase Troponin T C-Reactive Protein Total Protein Albumin Prealbumin LDL Cholesterol Direct Arterial Blood Glucose Arterial Blood Ionized Calcium Urine WBC (Auto) 03/09/20 03/09/20 03/09/20 08:35 08:35 12:11 WBC 23.4 H RBC 3.36 L Hgb 9.3 L Hct 28.8 L MCV MCH RDW 15.9 H Plt Count 521 H Lymph % (Auto) Kay # (Auto) Seg Neutrophils % Seg Neuts % (Manual) 87.0 H Lymphocytes % (Manual) 4.0 L Monocytes % (Manual) 9.0 H Seg Neutrophils # Seg Neutrophils # Man 20.4 H Lymphocytes # (Manual) 0.9 L Monocytes # (Manual) 2.1 H Eosinophils # (Manual) Basophils # (Manual) PT INR D-Dimer ABG pH POC ABG pCO2 POC ABG pO2 ABG pO2 ABG HCO3 ABG O2 Saturation ABG Base Excess ABG Hemoglobin ABG Oxyhemoglobin ABG Potassium ABG Glucose Oxyhemoglobin Carboxyhemoglobin Sodium 147 H Potassium Chloride Carbon Dioxide 37 H BUN 63 H Creatinine Glucose 154 H POC Glucose 128 H Calcium Ferritin Total Bilirubin Alkaline Phosphatase Lactate Dehydrogenase Troponin T C-Reactive Protein Total Protein Albumin Prealbumin LDL Cholesterol Direct Arterial Blood Glucose Arterial Blood Ionized Calcium Urine WBC (Auto) 03/09/20 03/10/20 03/10/20 17:51 00:25 05:41 WBC RBC Hgb Hct MCV MCH RDW Plt Count Lymph % (Auto) Kay # (Auto) Seg Neutrophils % Seg Neuts % (Manual) Lymphocytes % (Manual) Monocytes % (Manual) Seg Neutrophils # Seg Neutrophils # Man Lymphocytes # (Manual) Monocytes # (Manual) Eosinophils # (Manual) Basophils # (Manual) PT INR D-Dimer ABG pH POC ABG pCO2 POC ABG pO2 ABG pO2 ABG HCO3 ABG O2 Saturation ABG Base Excess ABG Hemoglobin ABG Oxyhemoglobin ABG Potassium ABG Glucose Oxyhemoglobin Carboxyhemoglobin Sodium Potassium Chloride Carbon Dioxide BUN Creatinine Glucose POC Glucose 127 H 128 H 153 H Calcium Ferritin Total Bilirubin Alkaline Phosphatase Lactate Dehydrogenase Troponin T C-Reactive Protein Total Protein Albumin Prealbumin LDL Cholesterol Direct Arterial Blood Glucose Arterial Blood Ionized Calcium Urine WBC (Auto) 03/10/20 03/10/20 03/10/20 06:14 06:14 12:02 WBC 18.3 H RBC 3.45 L Hgb 9.5 L Hct 29.5 L MCV MCH RDW 16.1 H Plt Count 494 H Lymph % (Auto) Kay # (Auto) Seg Neutrophils % Seg Neuts % (Manual) 95.0 H Lymphocytes % (Manual) 1.0 L Monocytes % (Manual) Seg Neutrophils # Seg Neutrophils # Man 17.4 H Lymphocytes # (Manual) 0.2 L Monocytes # (Manual) Eosinophils # (Manual) Basophils # (Manual) PT INR D-Dimer ABG pH POC ABG pCO2 POC ABG pO2 ABG pO2 ABG HCO3 ABG O2 Saturation ABG Base Excess ABG Hemoglobin ABG Oxyhemoglobin ABG Potassium ABG Glucose Oxyhemoglobin Carboxyhemoglobin Sodium 149 H Potassium Chloride Carbon Dioxide 35 H BUN 34 H Creatinine 0.2 L D Glucose 177 H POC Glucose 151 H Calcium Ferritin Total Bilirubin Alkaline Phosphatase Lactate Dehydrogenase Troponin T C-Reactive Protein Total Protein Albumin Prealbumin LDL Cholesterol Direct Arterial Blood Glucose Arterial Blood Ionized Calcium Urine WBC (Auto) 03/10/20 03/10/20 03/11/20 17:41 23:53 05:02 WBC RBC Hgb Hct MCV MCH RDW Plt Count Lymph % (Auto) Kay # (Auto) Seg Neutrophils % Seg Neuts % (Manual) Lymphocytes % (Manual) Monocytes % (Manual) Seg Neutrophils # Seg Neutrophils # Man Lymphocytes # (Manual) Monocytes # (Manual) Eosinophils # (Manual) Basophils # (Manual) PT INR D-Dimer ABG pH POC ABG pCO2 POC ABG pO2 ABG pO2 ABG HCO3 ABG O2 Saturation ABG Base Excess ABG Hemoglobin ABG Oxyhemoglobin ABG Potassium ABG Glucose Oxyhemoglobin Carboxyhemoglobin Sodium Potassium Chloride Carbon Dioxide BUN Creatinine Glucose POC Glucose 168 H 142 H 146 H Calcium Ferritin Total Bilirubin Alkaline Phosphatase Lactate Dehydrogenase Troponin T C-Reactive Protein Total Protein Albumin Prealbumin LDL Cholesterol Direct Arterial Blood Glucose Arterial Blood Ionized Calcium Urine WBC (Auto) 03/11/20 03/11/20 03/11/20 11:30 14:01 14:01 WBC 19.7 H RBC 3.04 L Hgb 8.7 L Hct 25.8 L MCV MCH RDW 15.6 H Plt Count Lymph % (Auto) Kay # (Auto) Seg Neutrophils % Seg Neuts % (Manual) Lymphocytes % (Manual) Monocytes % (Manual) Seg Neutrophils # Seg Neutrophils # Man Lymphocytes # (Manual) Monocytes # (Manual) Eosinophils # (Manual) Basophils # (Manual) PT INR D-Dimer ABG pH POC ABG pCO2 POC ABG pO2 ABG pO2 ABG HCO3 ABG O2 Saturation ABG Base Excess ABG Hemoglobin ABG Oxyhemoglobin ABG Potassium ABG Glucose Oxyhemoglobin Carboxyhemoglobin Sodium 151 H Potassium Chloride Carbon Dioxide 37 H BUN Creatinine < 0.2 L Glucose 171 H POC Glucose 248 H Calcium Ferritin Total Bilirubin Alkaline Phosphatase Lactate Dehydrogenase Troponin T C-Reactive Protein Total Protein Albumin Prealbumin LDL Cholesterol Direct Arterial Blood Glucose Arterial Blood Ionized Calcium Urine WBC (Auto) 03/11/20 03/11/20 03/12/20 17:09 23:52 04:39 WBC 19.9 H RBC 3.16 L Hgb 8.9 L Hct 27.5 L MCV MCH RDW 15.7 H Plt Count Lymph % (Auto) 6.8 L Kay # (Auto) 1.2 H Seg Neutrophils % 86.0 H Seg Neuts % (Manual) Lymphocytes % (Manual) Monocytes % (Manual) Seg Neutrophils # 17.1 H Seg Neutrophils # Man Lymphocytes # (Manual) Monocytes # (Manual) Eosinophils # (Manual) Basophils # (Manual) PT INR D-Dimer ABG pH POC ABG pCO2 POC ABG pO2 ABG pO2 ABG HCO3 ABG O2 Saturation ABG Base Excess ABG Hemoglobin ABG Oxyhemoglobin ABG Potassium ABG Glucose Oxyhemoglobin Carboxyhemoglobin Sodium Potassium Chloride Carbon Dioxide BUN Creatinine Glucose POC Glucose 124 H 131 H Calcium Ferritin Total Bilirubin Alkaline Phosphatase Lactate Dehydrogenase Troponin T C-Reactive Protein Total Protein Albumin Prealbumin LDL Cholesterol Direct Arterial Blood Glucose Arterial Blood Ionized Calcium Urine WBC (Auto) 03/12/20 03/12/20 03/12/20 04:39 05:28 11:34 WBC RBC Hgb Hct MCV MCH RDW Plt Count Lymph % (Auto) Kay # (Auto) Seg Neutrophils % Seg Neuts % (Manual) Lymphocytes % (Manual) Monocytes % (Manual) Seg Neutrophils # Seg Neutrophils # Man Lymphocytes # (Manual) Monocytes # (Manual) Eosinophils # (Manual) Basophils # (Manual) PT INR D-Dimer ABG pH POC ABG pCO2 POC ABG pO2 ABG pO2 ABG HCO3 ABG O2 Saturation ABG Base Excess ABG Hemoglobin ABG Oxyhemoglobin ABG Potassium ABG Glucose Oxyhemoglobin Carboxyhemoglobin Sodium 147 H Potassium Chloride Carbon Dioxide 40 H BUN Creatinine < 0.2 L Glucose 175 H POC Glucose 167 H 144 H Calcium Ferritin Total Bilirubin Alkaline Phosphatase Lactate Dehydrogenase Troponin T C-Reactive Protein Total Protein Albumin Prealbumin LDL Cholesterol Direct Arterial Blood Glucose Arterial Blood Ionized Calcium Urine WBC (Auto) 03/12/20 03/12/20 03/13/20 17:32 23:57 05:57 WBC RBC Hgb Hct MCV MCH RDW Plt Count Lymph % (Auto) Kay # (Auto) Seg Neutrophils % Seg Neuts % (Manual) Lymphocytes % (Manual) Monocytes % (Manual) Seg Neutrophils # Seg Neutrophils # Man Lymphocytes # (Manual) Monocytes # (Manual) Eosinophils # (Manual) Basophils # (Manual) PT INR D-Dimer ABG pH POC ABG pCO2 POC ABG pO2 ABG pO2 ABG HCO3 ABG O2 Saturation ABG Base Excess ABG Hemoglobin ABG Oxyhemoglobin ABG Potassium ABG Glucose Oxyhemoglobin Carboxyhemoglobin Sodium Potassium Chloride Carbon Dioxide BUN Creatinine Glucose POC Glucose 141 H 137 H 161 H Calcium Ferritin Total Bilirubin Alkaline Phosphatase Lactate Dehydrogenase Troponin T C-Reactive Protein Total Protein Albumin Prealbumin LDL Cholesterol Direct Arterial Blood Glucose Arterial Blood Ionized Calcium Urine WBC (Auto) 03/13/20 03/13/20 03/13/20 12:28 14:14 18:39 WBC RBC Hgb Hct MCV MCH RDW Plt Count Lymph % (Auto) Kay # (Auto) Seg Neutrophils % Seg Neuts % (Manual) Lymphocytes % (Manual) Monocytes % (Manual) Seg Neutrophils # Seg Neutrophils # Man Lymphocytes # (Manual) Monocytes # (Manual) Eosinophils # (Manual) Basophils # (Manual) PT INR D-Dimer ABG pH POC ABG pCO2 POC ABG pO2 ABG pO2 ABG HCO3 ABG O2 Saturation ABG Base Excess ABG Hemoglobin ABG Oxyhemoglobin ABG Potassium ABG Glucose Oxyhemoglobin Carboxyhemoglobin Sodium Potassium Chloride Carbon Dioxide 39 H BUN Creatinine < 0.2 L Glucose 129 H POC Glucose 130 H 125 H Calcium Ferritin Total Bilirubin Alkaline Phosphatase Lactate Dehydrogenase Troponin T C-Reactive Protein Total Protein Albumin Prealbumin LDL Cholesterol Direct Arterial Blood Glucose Arterial Blood Ionized Calcium Urine WBC (Auto) 03/13/20 03/14/20 03/14/20 23:33 05:24 08:07 WBC 16.8 H RBC 2.81 L Hgb 7.9 L Hct 23.9 L MCV MCH RDW 15.9 H Plt Count Lymph % (Auto) Kay # (Auto) Seg Neutrophils % Seg Neuts % (Manual) 84.0 H Lymphocytes % (Manual) 10.0 L Monocytes % (Manual) Seg Neutrophils # Seg Neutrophils # Man 14.1 H Lymphocytes # (Manual) Monocytes # (Manual) Eosinophils # (Manual) Basophils # (Manual) PT INR D-Dimer ABG pH POC ABG pCO2 POC ABG pO2 ABG pO2 ABG HCO3 ABG O2 Saturation ABG Base Excess ABG Hemoglobin ABG Oxyhemoglobin ABG Potassium ABG Glucose Oxyhemoglobin Carboxyhemoglobin Sodium Potassium Chloride Carbon Dioxide BUN Creatinine Glucose POC Glucose 146 H 125 H Calcium Ferritin Total Bilirubin Alkaline Phosphatase Lactate Dehydrogenase Troponin T C-Reactive Protein Total Protein Albumin Prealbumin LDL Cholesterol Direct Arterial Blood Glucose Arterial Blood Ionized Calcium Urine WBC (Auto) 03/14/20 03/14/20 03/14/20 08:07 12:21 18:26 WBC RBC Hgb Hct MCV MCH RDW Plt Count Lymph % (Auto) Kay # (Auto) Seg Neutrophils % Seg Neuts % (Manual) Lymphocytes % (Manual) Monocytes % (Manual) Seg Neutrophils # Seg Neutrophils # Man Lymphocytes # (Manual) Monocytes # (Manual) Eosinophils # (Manual) Basophils # (Manual) PT INR D-Dimer ABG pH POC ABG pCO2 POC ABG pO2 ABG pO2 ABG HCO3 ABG O2 Saturation ABG Base Excess ABG Hemoglobin ABG Oxyhemoglobin ABG Potassium ABG Glucose Oxyhemoglobin Carboxyhemoglobin Sodium Potassium Chloride 97.0 L Carbon Dioxide 37 H BUN Creatinine < 0.2 L Glucose 129 H POC Glucose 109 H 142 H Calcium 8.3 L Ferritin Total Bilirubin Alkaline Phosphatase Lactate Dehydrogenase Troponin T C-Reactive Protein Total Protein Albumin Prealbumin LDL Cholesterol Direct Arterial Blood Glucose Arterial Blood Ionized Calcium Urine WBC (Auto) 03/14/20 03/15/20 03/15/20 23:57 05:46 08:06 WBC 19.7 H RBC 3.29 L Hgb 9.1 L Hct 28.0 L MCV MCH RDW 15.9 H Plt Count Lymph % (Auto) Kay # (Auto) Seg Neutrophils % Seg Neuts % (Manual) Lymphocytes % (Manual) Monocytes % (Manual) Seg Neutrophils # Seg Neutrophils # Man Lymphocytes # (Manual) Monocytes # (Manual) Eosinophils # (Manual) Basophils # (Manual) PT INR D-Dimer ABG pH POC ABG pCO2 POC ABG pO2 ABG pO2 ABG HCO3 ABG O2 Saturation ABG Base Excess ABG Hemoglobin ABG Oxyhemoglobin ABG Potassium ABG Glucose Oxyhemoglobin Carboxyhemoglobin Sodium Potassium Chloride Carbon Dioxide BUN Creatinine Glucose POC Glucose 157 H 118 H Calcium Ferritin Total Bilirubin Alkaline Phosphatase Lactate Dehydrogenase Troponin T C-Reactive Protein Total Protein Albumin Prealbumin LDL Cholesterol Direct Arterial Blood Glucose Arterial Blood Ionized Calcium Urine WBC (Auto) 03/15/20 03/15/20 03/15/20 08:06 12:44 18:09 WBC RBC Hgb Hct MCV MCH RDW Plt Count Lymph % (Auto) Kay # (Auto) Seg Neutrophils % Seg Neuts % (Manual) Lymphocytes % (Manual) Monocytes % (Manual) Seg Neutrophils # Seg Neutrophils # Man Lymphocytes # (Manual) Monocytes # (Manual) Eosinophils # (Manual) Basophils # (Manual) PT INR D-Dimer ABG pH POC ABG pCO2 POC ABG pO2 ABG pO2 ABG HCO3 ABG O2 Saturation ABG Base Excess ABG Hemoglobin ABG Oxyhemoglobin ABG Potassium ABG Glucose Oxyhemoglobin Carboxyhemoglobin Sodium 136 L Potassium Chloride 93.6 L Carbon Dioxide 37 H BUN Creatinine < 0.2 L Glucose 132 H POC Glucose 151 H 164 H Calcium Ferritin Total Bilirubin Alkaline Phosphatase Lactate Dehydrogenase Troponin T C-Reactive Protein Total Protein Albumin Prealbumin LDL Cholesterol Direct Arterial Blood Glucose Arterial Blood Ionized Calcium Urine WBC (Auto) 03/15/20 03/16/20 03/16/20 23:26 05:39 11:58 WBC RBC Hgb Hct MCV MCH RDW Plt Count Lymph % (Auto) Kay # (Auto) Seg Neutrophils % Seg Neuts % (Manual) Lymphocytes % (Manual) Monocytes % (Manual) Seg Neutrophils # Seg Neutrophils # Man Lymphocytes # (Manual) Monocytes # (Manual) Eosinophils # (Manual) Basophils # (Manual) PT INR D-Dimer ABG pH POC ABG pCO2 POC ABG pO2 ABG pO2 ABG HCO3 ABG O2 Saturation ABG Base Excess ABG Hemoglobin ABG Oxyhemoglobin ABG Potassium ABG Glucose Oxyhemoglobin Carboxyhemoglobin Sodium Potassium Chloride Carbon Dioxide BUN Creatinine Glucose POC Glucose 136 H 116 H 109 H Calcium Ferritin Total Bilirubin Alkaline Phosphatase Lactate Dehydrogenase Troponin T C-Reactive Protein Total Protein Albumin Prealbumin LDL Cholesterol Direct Arterial Blood Glucose Arterial Blood Ionized Calcium Urine WBC (Auto) 03/16/20 03/17/20 03/17/20 23:56 04:40 04:40 WBC 18.0 H RBC 3.33 L Hgb 9.5 L Hct 28.8 L MCV MCH RDW 16.4 H Plt Count 499 H Lymph % (Auto) Kay # (Auto) Seg Neutrophils % Seg Neuts % (Manual) 82.0 H Lymphocytes % (Manual) 8.0 L Monocytes % (Manual) Seg Neutrophils # Seg Neutrophils # Man 14.8 H Lymphocytes # (Manual) Monocytes # (Manual) 1.3 H Eosinophils # (Manual) Basophils # (Manual) 0.2 H PT INR D-Dimer ABG pH POC ABG pCO2 POC ABG pO2 ABG pO2 ABG HCO3 ABG O2 Saturation ABG Base Excess ABG Hemoglobin ABG Oxyhemoglobin ABG Potassium ABG Glucose Oxyhemoglobin Carboxyhemoglobin Sodium Potassium Chloride 97.7 L Carbon Dioxide 32 H BUN Creatinine < 0.2 L Glucose 114 H POC Glucose 131 H Calcium Ferritin Total Bilirubin Alkaline Phosphatase Lactate Dehydrogenase Troponin T C-Reactive Protein Total Protein Albumin Prealbumin LDL Cholesterol Direct Arterial Blood Glucose Arterial Blood Ionized Calcium Urine WBC (Auto) 03/18/20 03/18/20 03/18/20 00:21 05:21 11:55 WBC RBC Hgb Hct MCV MCH RDW Plt Count Lymph % (Auto) Kay # (Auto) Seg Neutrophils % Seg Neuts % (Manual) Lymphocytes % (Manual) Monocytes % (Manual) Seg Neutrophils # Seg Neutrophils # Man Lymphocytes # (Manual) Monocytes # (Manual) Eosinophils # (Manual) Basophils # (Manual) PT INR D-Dimer ABG pH POC ABG pCO2 POC ABG pO2 ABG pO2 ABG HCO3 ABG O2 Saturation ABG Base Excess ABG Hemoglobin ABG Oxyhemoglobin ABG Potassium ABG Glucose Oxyhemoglobin Carboxyhemoglobin Sodium Potassium Chloride Carbon Dioxide BUN Creatinine Glucose POC Glucose 124 H 138 H 119 H Calcium Ferritin Total Bilirubin Alkaline Phosphatase Lactate Dehydrogenase Troponin T C-Reactive Protein Total Protein Albumin Prealbumin LDL Cholesterol Direct Arterial Blood Glucose Arterial Blood Ionized Calcium Urine WBC (Auto) 03/18/20 03/18/20 03/19/20 17:03 23:58 05:24 WBC RBC Hgb Hct MCV MCH RDW Plt Count Lymph % (Auto) Kay # (Auto) Seg Neutrophils % Seg Neuts % (Manual) Lymphocytes % (Manual) Monocytes % (Manual) Seg Neutrophils # Seg Neutrophils # Man Lymphocytes # (Manual) Monocytes # (Manual) Eosinophils # (Manual) Basophils # (Manual) PT INR D-Dimer ABG pH POC ABG pCO2 POC ABG pO2 ABG pO2 ABG HCO3 ABG O2 Saturation ABG Base Excess ABG Hemoglobin ABG Oxyhemoglobin ABG Potassium ABG Glucose Oxyhemoglobin Carboxyhemoglobin Sodium Potassium Chloride Carbon Dioxide BUN Creatinine Glucose POC Glucose 128 H 128 H 115 H Calcium Ferritin Total Bilirubin Alkaline Phosphatase Lactate Dehydrogenase Troponin T C-Reactive Protein Total Protein Albumin Prealbumin LDL Cholesterol Direct Arterial Blood Glucose Arterial Blood Ionized Calcium Urine WBC (Auto) 03/19/20 03/19/20 03/19/20 08:05 08:05 11:56 WBC 16.8 H RBC 3.36 L Hgb 9.4 L Hct 28.8 L MCV MCH RDW 17.4 H Plt Count 567 H Lymph % (Auto) 7.8 L Kay # (Auto) 1.2 H Seg Neutrophils % 83.5 H Seg Neuts % (Manual) Lymphocytes % (Manual) Monocytes % (Manual) Seg Neutrophils # 14.1 H Seg Neutrophils # Man Lymphocytes # (Manual) Monocytes # (Manual) Eosinophils # (Manual) Basophils # (Manual) PT INR D-Dimer ABG pH POC ABG pCO2 POC ABG pO2 ABG pO2 ABG HCO3 ABG O2 Saturation ABG Base Excess ABG Hemoglobin ABG Oxyhemoglobin ABG Potassium ABG Glucose Oxyhemoglobin Carboxyhemoglobin Sodium Potassium Chloride Carbon Dioxide 36 H BUN Creatinine < 0.2 L Glucose 135 H POC Glucose 128 H Calcium Ferritin Total Bilirubin Alkaline Phosphatase Lactate Dehydrogenase Troponin T C-Reactive Protein Total Protein Albumin Prealbumin LDL Cholesterol Direct Arterial Blood Glucose Arterial Blood Ionized Calcium Urine WBC (Auto) Allied health notes reviewed: RT
--- NOTE | 2020-03-19 15:37 | Progress Note ---
Assessment and Plan --Acute hypoxic hypercapnic respiratory failure; Intubated on mechanical ventilation. Etiology secondary to sepsis, ALS, multifocal pneumonia (Covid negative). S/p trach placement 03/07/20 --Dysphagia, status post PEG placement for tube feeding --ALS; Chronic Continue to provide supportive care --Elevated D-dimers; CTA chest, lower extremity venous Doppler both are negative Lovenox for DVT prophylaxis --Bilateral pneumonia; probably community-acquired Continue cefepime and vancomycin ID recommendations appreciated --Sepsis secondary to pneumonia Continue cefepime and vancomycin --Elevated troponin; Serial cardiac enzymes, serial EKGs Echocardiogram, cardiology consult if needed --Hypernatremia Trend sodium Free water via feeding tube --Abdominal distention due to bladder outlet obstruction, resolved CT abdomen showed bladder outlet obstruction, urology consulted s/p drake placement by urology on 03/09 --Hypotension possibly from septic shock and bladder outlet obstruction improved following placing drake --Hypernatremia due to hypovolumia free water with TF and place on 1/2NS --DVT prophylaxis; Lovenox The high probability of a clinically significant, sudden or life threatening deterioration of the [cardiac, renal and respiratory] system(s) required my full and direct attention, intervention and personal management. The aggregate critical care time was [34] minutes. This time is in addition to time spent performing reported procedures but includes the following: [x] Data Review and interpretation [x] Patient assessment and monitoring of vital signs [x] Documentation [x] Medication orders and management Brief history: 59-year-old male patient with significant past medical history of ALS, presented to ED with worsening shortness of breath since the morning [employer]. Patient was on a trilogy machine for breathing 18/11. EMS arrived, patient had O2 sats in the 80s. EMS attempted to place patient on their CPAP machine, however patient did not tolerate. Patient was admitted to the ICU with diagnosis of acute hypoxic respiratory failure and placed on BiPAP. Patient initially tolerated but later deteriorated with respiratory status. CTA chest showed no PE but significant for bilateral pneumonia. Doppler ultrasound also negative for DVT. COVID-19 test ordered. Due to persistent hypoxia, patient was intubated on 02/26/2020 at 1500. Patient now on mechanical ventilation in the ICU s/p trach placement and now unable to wean off from the mechanical venti lation. Patient now status post PEG placement for tube feeding. Patient most likely need long-term placement -LTAC versus SNF Daily course: 02/26/2020. Blood cultures are negative x48 hours and Covid testing negative as well. Continue antibiotics per ID recommendations for community-acquired bilateral pneumonia. Cardiology consultation for elevated troponin. Check e chocardiogram. 02/27/2020. Events of yesterday noted with asystole following V. fib arrest. Patient currently on AC mode rate 20, tidal volume 400, FiO2 50% and a PEEP of 6. Follow-up echocardiogram for elevated troponin. Cardiology suspects NSTEMI Type 2 in the setting of acute resp failure. Chest CTA and BLE Dopplers neg. we will discontinue Decadron given the Covid PCR is negative. 02/28/2020. Spoke with the sister Felisa Eli who is the power of assistant district attorney regarding advanced directives and she instructed me that she would like to continue with aggressive care at this time. I informed her of the guarded prognosis and high mortality/morbidity and she voiced understanding. Patient currently with AC mode ventilation rate 18, tidal volume 400, FiO2 40% and a PEEP of 6. Continue antibiotics for pneumonia. ID previously consulted. Also consult neurology with regards to ALS. 02/29/2020; patient is intubated and on CPAP patient is alert and oriented. Patient has ALS. Dr. Álvarez spoke with his sister and she wants aggressive care. Continue antibiotics for pneumonia. Neurology consulted for ALS. Prognosis poor 03/01/2020; patient is intubated and on CPAP, patient is alert and oriented. I spoke with his 2 sisters about the management plan. 03/02/2020; patient is intubated and on CPAP. Patient was alert and oriented. I spoke with Dr. mohr and he thinks patient may need mechanical ventilation, likely his disease progressed. Dr. Flowers did debridement this morning. 03/03/2020; patient is intubated and on CPAP, patient was on trilogy and BiPAP at home. Patient has ALS. on spontaneous breathing trial. Patient is alert and oriented but quadriplegic. Patient has severe bilateral pneumonia and is on cefepime and Vanco, ID is following. Patient has sacral decubitus ulcer and debridement was done by Dr. Flowers and there is no osteomyelitis. 03/05. Patient still on broad-spectrum antibiotics. Status post sacral decubitus ulcer debridements-no osteomyelitis. Patient is on AC 25/400/30% PEEP 5. No blood gas results today. 03/06. Plan for tracheostomy by surgery. Still remains intubated. Labs reviewed-sodium 150. Started on free water 200 every 8hr. trend sodium. 03/07: s/p trach placement today, patient placed back on mechanical ventilation with trach. Plan to resume tube feeding with NG tube. Continue to monitor vitals, monitor BMP. 03/08: Patient noted to have distended abdomen with low urinary output. Obtain bladder scan rule out urine retention, UA and urine culture, continue to follow clinically. 03/09: Patient noted to have low blood pressure with SBP as low as 70s. Ordered for 500 mils normal saline bolus. CT abdomen showed bladder outlet obstruction, urology consulted. 03/10: placed on drake by urology o/n, improved urine outpt. cont to monitor BMP. resuded TF - cont free water with TF. wean off from vent as tolerated. 03/11: Vitals stable. cont TF, wean off from vent as tolerated. start on 1/2 NS for hypernatremia - follow BMP 03/12: wean off vent as tolerated, plan for speech eval, cont Tf for now, cont iv fluid 03/13: unable to wean off from vent, unable to do speech therapy eval. will need PEG tube, cont supportive care for now, cont NG tube feeding 03/14: consulted GI for PEg placemnet, cont supportive care. remains on vent at night 03/15: Discussed with GI, plan for PEG tube placement possibly tomorrow. Continue supportive care and wean off from vent as tolerated. Hold Lovenox dose tonight. 03/16: family didnot consent for PEG placement yesterday. I spoke with the daughter today and she is now agreeable for PEG tube. I explained the necessity of the procedure with RN to the patient also and he nodded started on tube feeding, for the procedure. will cont supportive care. planned for PEG tube placement tomorrow. 03/17: s/p PEG placement today, patient tolerated well, cont supportive care 03/18: Started on tube feeding with new PEG tube, continue to wean off vent as tolerated 03/19: cont to monitor with supportive care, wean off vent as tolerated Subjective Date of service: 03/19/20 Principal diagnosis: Ac on Ch Hypercapnic & hypoxemic Resp Failure; Severe Sepsis; Jamar PNA; ALS Interval history: Patient seen and examined Remains on mechanical ventilation with trach tube Discussed with RN at the bedside Vitals reviewed -BP stable Tolerating tube feeding with PEG tube Objective - Exam Narrative Exam: GENERAL: Awake. Intubated with trach tube HEAD: No signs of head trauma. EYES: Pupils are equal. Extraocular motions intact. EARS: Hearing grossly intact. MOUTH: Oropharynx is normal. NECK: No adenopathy, no JVD. CHEST: Coarse breath sounds bilaterally CARDIAC: Regular rate and rhythm. S1 and S2, without murmurs, gallops, or rubs. VASCULAR: No Edema. Peripheral pulses normal and equal in all extremities. ABDOMEN: Soft, non tender and nondistended. Bowel Sounds normal. PEG in place NEUROLOGIC EXAM: Awake, paraplegic SKIN: No obvious lesions - Constitutional Vitals: Vital Signs - 12hr 03/19/20 03/19/20 03/19/20 03:45 03:51 04:00 Temperature 98.4 F Pulse Rate 83 88 87 Pulse Rate [ 86 From Monitor] Respiratory 12 13 Rate Respiratory Rate [Left Hip] Blood Pressure 105/70 104/68 105/69 O2 Sat by Pulse 99 99 98 Oximetry O2 Sat by Pulse Oximetry [ Assessment] 03/19/20 03/19/20 03/19/20 04:15 04:30 04:45 Temperature Pulse Rate 93 H 92 H 85 Pulse Rate [ From Monitor] Respiratory 14 14 13 Rate Respiratory Rate [Left Hip] Blood Pressure 96/63 97/62 102/62 O2 Sat by Pulse 97 99 99 Oximetry O2 Sat by Pulse Oximetry [ Assessment] 03/19/20 03/19/20 03/19/20 05:00 05:15 05:30 Temperature Pulse Rate 97 H 93 H 101 H Pulse Rate [ From Monitor] Respiratory 15 17 16 Rate Respiratory Rate [Left Hip] Blood Pressure 116/77 113/76 114/79 O2 Sat by Pulse 99 99 99 Oximetry O2 Sat by Pulse Oximetry [ Assessment] 03/19/20 03/19/20 03/19/20 05:45 06:00 06:15 Temperature Pulse Rate 99 H 93 H 87 Pulse Rate [ From Monitor] Respiratory 15 15 13 Rate Respiratory Rate [Left Hip] Blood Pressure 110/75 112/74 100/69 O2 Sat by Pulse 99 99 100 Oximetry O2 Sat by Pulse Oximetry [ Assessment] 03/19/20 03/19/20 03/19/20 06:30 06:45 07:00 Temperature Pulse Rate 80 90 101 H Pulse Rate [ From Monitor] Respiratory 12 12 13 Rate Respiratory Rate [Left Hip] Blood Pressure 92/60 98/64 108/75 O2 Sat by Pulse 99 98 100 Oximetry O2 Sat by Pulse Oximetry [ Assessment] 03/19/20 03/19/20 03/19/20 07:15 07:30 07:45 Temperature Pulse Rate 90 101 H 97 H Pulse Rate [ From Monitor] Respiratory 16 10 L 17 Rate Respiratory Rate [Left Hip] Blood Pressure 105/66 110/73 114/74 O2 Sat by Pulse 98 99 99 Oximetry O2 Sat by Pulse Oximetry [ Assessment] 03/19/20 03/19/20 03/19/20 07:50 08:00 08:15 Temperature 99.4 F Pulse Rate 97 H 110 H 87 Pulse Rate [ 88 From Monitor] Respiratory 11 L 15 Rate Respiratory Rate [Left Hip] Blood Pressure 115/77 106/75 108/69 O2 Sat by Pulse 99 100 98 Oximetry O2 Sat by Pulse 99 Oximetry [ Assessment] 03/19/20 03/19/20 03/19/20 08:30 08:45 09:00 Temperature Pulse Rate 82 97 H 84 Pulse Rate [ From Monitor] Respiratory 14 16 14 Rate Respiratory Rate [Left Hip] Blood Pressure 97/63 111/77 101/68 O2 Sat by Pulse 99 98 99 Oximetry O2 Sat by Pulse Oximetry [ Assessment] 03/19/20 03/19/20 03/19/20 09:11 09:15 09:30 Temperature Pulse Rate 88 89 94 H Pulse Rate [ From Monitor] Respiratory 14 14 Rate Respiratory Rate [Left Hip] Blood Pressure 102/65 96/63 120/81 O2 Sat by Pulse 99 97 Oximetry O2 Sat by Pulse Oximetry [ Assessment] 03/19/20 03/19/20 03/19/20 09:45 10:00 10:15 Temperature Pulse Rate 93 H 100 H 96 H Pulse Rate [ From Monitor] Respiratory 13 20 18 Rate Respiratory 22 Rate [Left Hip] Blood Pressure 120/81 120/84 120/84 O2 Sat by Pulse 99 98 97 Oximetry O2 Sat by Pulse Oximetry [ Assessment] 03/19/20 03/19/20 03/19/20 10:30 10:45 10:53 Temperature Pulse Rate 98 H 99 H Pulse Rate [ From Monitor] Respiratory 20 20 19 Rate Respiratory Rate [Left Hip] Blood Pressure 128/85 128/85 O2 Sat by Pulse 99 100 Oximetry O2 Sat by Pulse Oximetry [ Assessment] 03/19/20 03/19/20 03/19/20 11:00 11:15 11:30 Temperature Pulse Rate 98 H 89 102 H Pulse Rate [ From Monitor] Respiratory 16 20 21 Rate Respiratory Rate [Left Hip] Blood Pressure 123/86 123/86 129/88 O2 Sat by Pulse 99 86 94 Oximetry O2 Sat by Pulse Oximetry [ Assessment] 03/19/20 03/19/20 03/19/20 11:45 12:00 12:15 Temperature Pulse Rate 104 H 102 H 102 H Pulse Rate [ 103 H From Monitor] Respiratory 20 22 22 Rate Respiratory Rate [Left Hip] Blood Pressure 125/84 124/85 124/85 O2 Sat by Pulse 97 99 98 Oximetry O2 Sat by Pulse Oximetry [ Assessment] 03/19/20 03/19/20 03/19/20 12:30 12:45 13:00 Temperature Pulse Rate 93 H 97 H 101 H Pulse Rate [ From Monitor] Respiratory 12 15 18 Rate Respiratory Rate [Left Hip] Blood Pressure 123/83 123/83 125/90 O2 Sat by Pulse 98 99 99 Oximetry O2 Sat by Pulse Oximetry [ Assessment] 03/19/20 03/19/20 03/19/20 13:15 13:30 13:45 Temperature Pulse Rate 103 H 103 H 96 H Pulse Rate [ From Monitor] Respiratory 19 18 14 Rate Respiratory Rate [Left Hip] Blood Pressure 125/90 125/84 125/84 O2 Sat by Pulse 98 98 98 Oximetry O2 Sat by Pulse Oximetry [ Assessment] 03/19/20 03/19/20 03/19/20 14:00 14:15 14:30 Temperature Pulse Rate 104 H 102 H 112 H Pulse Rate [ From Monitor] Respiratory 17 15 19 Rate Respiratory Rate [Left Hip] Blood Pressure 122/83 122/83 121/80 O2 Sat by Pulse 98 98 98 Oximetry O2 Sat by Pulse Oximetry [ Assessment] 03/19/20 03/19/20 14:45 15:08 Temperature Pulse Rate 108 H 112 H Pulse Rate [ From Monitor] Respiratory 15 24 Rate Respiratory Rate [Left Hip] Blood Pressure 122/83 121/80 O2 Sat by Pulse 96 99 Oximetry O2 Sat by Pulse 99 Oximetry [ Assessment] - Labs CBC & Chem 7: 03/19/20 08:05 03/19/20 08:05 Labs: Abnormal lab results 03/18/20 03/18/20 03/19/20 Range/Units 17:03 23:58 05:24 WBC (4.5-11.0) K/mm3 RBC (3.65-5.03) M/mm3 Hgb (11.8-15.2) gm/dl Hct (35.5-45.6) % RDW (13.2-15.2) % Plt Count (140-440) K/mm3 Lymph % (Auto) (13.4-35.0) % Ida # (Auto) (0.0-0.8) K/mm3 Seg Neutrophils % (40.0-70.0) % Seg Neutrophils # (1.8-7.7) K/mm3 Carbon Dioxide (22-30) mmol/L Creatinine (0.8-1.3) mg/dL Glucose (75-100) mg/dL POC Glucose 128 H 128 H 115 H (70-105) mg/dL 03/19/20 03/19/20 03/19/20 Range/Units 08:05 08:05 11:56 WBC 16.8 H (4.5-11.0) K/mm3 RBC 3.36 L (3.65-5.03) M/mm3 Hgb 9.4 L (11.8-15.2) gm/dl Hct 28.8 L (35.5-45.6) % RDW 17.4 H (13.2-15.2) % Plt Count 567 H (140-440) K/mm3 Lymph % (Auto) 7.8 L (13.4-35.0) % Ida # (Auto) 1.2 H (0.0-0.8) K/mm3 Seg Neutrophils % 83.5 H (40.0-70.0) % Seg Neutrophils # 14.1 H (1.8-7.7) K/mm3 Carbon Dioxide 36 H (22-30) mmol/L Creatinine < 0.2 L (0.8-1.3) mg/dL Glucose 135 H (75-100) mg/dL POC Glucose 128 H (70-105) mg/dL HEART Score - HEART Score Troponin: Troponin T 0.034 ng/mL (0.00-0.029) H D 02/24/20 19:35
[2020-03-19] MEDS: POLYETHYLENE GLYCOL 3350 17 GM POWDER PO SCH (21:03)
[2020-03-20] MEDS: MORPHINE 2 MG/1 ML INJ IV PRN ×2 (03:10→19:07)
[2020-03-20] MEDS: DOCUSATE SODIUM 100 MG/10 ML ORAL LIQD PO SCH ×2 (09:48→22:05)
[2020-03-20] MEDS: LANSOPRAZOLE 30 MG SOLUTAB FEEDTUBE SCH (09:48)
[2020-03-20] MEDS: TAMSULOSIN 0.4 MG CAP PO SCH (09:48)
[2020-03-20] MEDS: METOPROLOL TARTRATE 25 MG TAB PO SCH ×2 (09:49→22:06)
[2020-03-20] MEDS: GLYCOPYRROLATE 2 MG TAB PO SCH ×3 (09:49→22:06)
--- NOTE | 2020-03-20 12:46 | Progress Note ---
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 Respiratory Failure Severe Sepsis with Shock Bilateral Pneumonia (Possible aspiration) History of ALS on Trilogy Oropharyngeal Dysphagia PUI-COVID Acute toxic metabolic encephalopathy Elevated D-dimer Elevated troponin possibly type 2 ischemia - resume t-piece trials as tolerated (Failed after about 5 minutes today) - optimize electrolytes - LTAC evaluation is appropriate - continue care as below otherwise; - repeat CXR prn +/- bronchoscopy for mucus plugging / large volume atelectasis - continue to rest on AC qhs - LTAC evaluation is appropriate - continue Robinul & scopolamine for secretion control - prn electrolytes and optimize K+ & Mg 2+ for best respiratory muscle function - wound care per RN/WCN - continue Scopolamine patch for secretion control - wean supplemental oxygen for target O2 sat's > 92% acutely - bronchodilators with pulmonary hygiene per RT - VAP bundle addressed - continue lung protective strategies - continue bronchodilators with pulmonary hygiene per RT - wean per pulmonary driven protocols otherwise - sedation prn for target RASS 0 to -1 - s/p empiric antiinfectives per ID rec's (Rocephin and Zithromax) - COVID-19 isolation (Airborne & Contact) - empiric Dexamethasone - follow COVID-19 test results (negative) - trend inflammatory markers to aid clinical decision making - enteral nutrition at goal rate as tolerated - Aspiration precautions - accuchecks with glycemic control per SSI (While critically ill target blood glucose of 140-180 mg/dL; avoid hypoglycemia) - avoid nephrotoxins, renally dose all medications - avoid benzodiazepine's, reduce the possibility of delirium - prn analgesia per CPOT score - Maintenance of sleep-wake cycle, avoid delirium - aspiration precautions - G.I. & VTE prophylaxis - PT/OT/ROM exercises - mobility protocols for pressure ulcer prophylaxis - Monitor hemodynamics closely - continue other care per attending / other consultants - discharge planning ongoing concurrently .... Re-evaluate in am & prn CONDITION: CRITICAL PROGNOSIS: GUARDED CODE STATUS: FULL CODE The high probability of a clinically significant, sudden or life-threatening deterioration of the [respiratory, cardiovascular & neurologic] system(s) required my full and direct attention, intervention and personal management. The aggregate critical care time was [32] minutes without overlap. Time includes spent on; [x] Data Review and interpretation [x] Patient assessment and monitoring of vital signs [x] Documentation [x] Medication orders and management Subjective Date of service: 03/20/20 Principal diagnosis: Ac on Ch Hypercapnic & hypoxemic Resp Failure; Severe Sepsis; Jamar PNA; ALS Interval history: Patient is seen today for: Acute on Chronic Hypercapnic & hypoxemic Respiratory Failure; Severe Sepsis with Shock; Bilateral Pneumonia (Possible aspiration); History of ALS on Trilogy; PUI-COVID; Acute toxic metabolic encephalopathy Seen and examined at bedside; 24hour events reviewed; nursing and respiratory care staff consulted; no adverse overnight events reported to me; resting in bed; remains on MVS; s/p PEG; on CPAP/PSV and tolerating well; denies acute ches t pains or palpitations; No N/V/F/C Objective Vital Signs - 12hr 03/20/20 03/20/20 03/20/20 00:46 01:00 01:16 Temperature Pulse Rate 106 H 106 H 115 H Respiratory 13 15 12 Rate Blood Pressure 118/83 122/85 122/85 O2 Sat by Pulse 99 100 99 Oximetry O2 Sat by Pulse Oximetry [ Assessment] 03/20/20 03/20/20 03/20/20 01:30 01:46 02:00 Temperature Pulse Rate 106 H 111 H 111 H Respiratory 13 13 18 Rate Blood Pressure 122/94 122/94 126/84 O2 Sat by Pulse 99 100 99 Oximetry O2 Sat by Pulse Oximetry [ Assessment] 03/20/20 03/20/20 03/20/20 02:16 02:30 02:46 Temperature Pulse Rate 108 H 106 H 105 H Respiratory 19 15 13 Rate Blood Pressure 126/84 123/93 126/84 O2 Sat by Pulse 100 99 98 Oximetry O2 Sat by Pulse Oximetry [ Assessment] 03/20/20 03/20/20 03/20/20 03:00 03:10 03:16 Temperature Pulse Rate 109 H 106 H 108 H Respiratory 18 12 13 Rate Blood Pressure 121/85 123/93 O2 Sat by Pulse 99 99 98 Oximetry O2 Sat by Pulse Oximetry [ Assessment] 03/20/20 03/20/20 03/20/20 03:18 03:30 03:40 Temperature 98.7 F Pulse Rate 104 H Respiratory 13 14 Rate Blood Pressure 121/88 O2 Sat by Pulse 99 Oximetry O2 Sat by Pulse Oximetry [ Assessment] 03/20/20 03/20/20 03/20/20 03:46 03:57 04:00 Temperature Pulse Rate 94 H 96 H 102 H Respiratory 14 13 Rate Blood Pressure 121/85 121/88 114/83 O2 Sat by Pulse 98 99 99 Oximetry O2 Sat by Pulse 99 Oximetry [ Assessment] 03/20/20 03/20/20 03/20/20 04:16 04:30 04:46 Temperature Pulse Rate 88 104 H 106 H Respiratory 14 13 14 Rate Blood Pressure 114/83 122/81 122/81 O2 Sat by Pulse 98 97 98 Oximetry O2 Sat by Pulse Oximetry [ Assessment] 03/20/20 03/20/20 03/20/20 05:00 05:05 05:16 Temperature Pulse Rate 108 H 108 H 97 H Respiratory 13 12 12 Rate Blood Pressure 117/84 117/84 O2 Sat by Pulse 99 99 99 Oximetry O2 Sat by Pulse Oximetry [ Assessment] 03/20/20 03/20/20 03/20/20 05:30 05:46 06:00 Temperature Pulse Rate 110 H 94 H 103 H Respiratory 22 14 13 Rate Blood Pressure 122/84 122/84 121/85 O2 Sat by Pulse 99 98 98 Oximetry O2 Sat by Pulse Oximetry [ Assessment] 03/20/20 03/20/20 03/20/20 06:16 06:30 06:46 Temperature Pulse Rate 95 H 96 H 103 H Respiratory 13 13 13 Rate Blood Pressure 121/85 115/77 115/77 O2 Sat by Pulse 98 98 98 Oximetry O2 Sat by Pulse Oximetry [ Assessment] 03/20/20 03/20/20 03/20/20 07:00 07:16 07:30 Temperature Pulse Rate 105 H 109 H 103 H Respiratory 13 14 12 Rate Blood Pressure 112/82 112/82 109/81 O2 Sat by Pulse 98 98 98 Oximetry O2 Sat by Pulse Oximetry [ Assessment] 03/20/20 03/20/20 03/20/20 07:46 08:00 08:16 Temperature 98.1 F Pulse Rate 109 H 107 H 107 H Respiratory 14 17 17 Rate Blood Pressure 109/81 110/78 110/78 O2 Sat by Pulse 98 98 97 Oximetry O2 Sat by Pulse Oximetry [ Assessment] 03/20/20 03/20/20 03/20/20 08:30 08:33 08:46 Temperature Pulse Rate 116 H 107 H 108 H Respiratory 16 16 22 Rate Blood Pressure 108/82 108/82 108/82 O2 Sat by Pulse 98 97 97 Oximetry O2 Sat by Pulse Oximetry [ Assessment] 03/20/20 03/20/20 03/20/20 09:00 09:16 09:30 Temperature Pulse Rate 105 H 104 H 105 H Respiratory 17 19 19 Rate Blood Pressure 105/74 105/74 114/80 O2 Sat by Pulse 99 99 100 Oximetry O2 Sat by Pulse Oximetry [ Assessment] 03/20/20 03/20/20 03/20/20 09:46 09:49 10:00 Temperature Pulse Rate 106 H 103 H 101 H Respiratory 18 22 Rate Blood Pressure 114/80 114/80 113/85 O2 Sat by Pulse 99 99 Oximetry O2 Sat by Pulse Oximetry [ Assessment] 03/20/20 03/20/20 03/20/20 10:16 10:30 10:46 Temperature Pulse Rate 100 H 94 H 89 Respiratory 22 21 24 Rate Blood Pressure 113/85 114/81 114/81 O2 Sat by Pulse 99 99 98 Oximetry O2 Sat by Pulse Oximetry [ Assessment] 03/20/20 11:00 Temperature Pulse Rate 91 H Respiratory 22 Rate Blood Pressure 110/81 O2 Sat by Pulse 99 Oximetry O2 Sat by Pulse Oximetry [ Assessment] Constitutional: no acute distress, other (thin middle aged male with normal respiratory effort at rest on MVS) Eyes: non-icteric ENT: oropharynx moist, other (S/P Tracheostomy) Neck: supple, no lymphadenopathy, no JVD Effort: mildly labored Ascultation: Bilateral: diminished breath sounds, rhonchi (and referred upper airway sounds) Percussion: Bilateral: not dull Cardiovascular: regular rate and rhythm, other (S1,S2, no murmurs) Gastrointestinal: normoactive bowel sounds, soft, non-tender, non-distended, other (+ PEG tube) Integumentary: normal, decubitus ulcer (sacral / gluteal) Extremities: no cyanosis, no edema, pulses normal, other (atrophic looking limbs) Neurologic: pupils equal and round, other (motor strength in extremities 1-2/5) Psychiatric: anxious CBC and BMP: 03/19/20 08:05 03/19/20 08:05 ABG, PT/INR, D-dimer: ABG ABG pH 7.371 (7.320-7.450) 03/08/20 12:34 POC ABG pCO2 63.1 mmHg (32.0-48.0) H 03/08/20 12:34 ABG pCO2 60.1 mm Hg 03/06/20 04:34 POC ABG pO2 90.5 mmHg (83-108) 03/08/20 12:34 ABG pO2 88.6 mm Hg (80.0-90.0) 03/06/20 04:34 POC ABG HCO3 35.7 03/08/20 12:34 ABG O2 Saturation 97.0 % (95.0-99.0) 03/06/20 04:34 PT/INR, D-dimer PT 15.6 Sec. (12.2-14.9) H 02/24/20 09:19 INR 1.21 (0.87-1.13) H 02/24/20 09:19 D-Dimer 1311.96 ng/mlDDU (0-234) H 02/24/20 09:19 Abnormal lab findings: Abnormal Labs 02/24/20 02/24/20 02/24/20 09:19 09:19 09:19 WBC 20.2 H RBC 5.05 H Hgb Hct MCV MCH RDW 15.3 H Plt Count Lymph % (Auto) [place] # (Auto) Seg Neutrophils % Seg Neuts % (Manual) 86.0 H Lymphocytes % (Manual) 1.0 L Monocytes % (Manual) Seg Neutrophils # Seg Neutrophils # Man 17.4 H Lymphocytes # (Manual) 0.2 L Monocytes # (Manual) Eosinophils # (Manual) Basophils # (Manual) PT 15.6 H INR 1.21 H D-Dimer 1311.96 H ABG pH POC ABG pCO2 POC ABG pO2 ABG pO2 ABG HCO3 ABG O2 Saturation ABG Base Excess ABG Hemoglobin ABG Oxyhemoglobin ABG Potassium ABG Glucose Oxyhemoglobin Carboxyhemoglobin Sodium 135 L Potassium 3.2 L Chloride 92.2 L Carbon Dioxide BUN 6 L Creatinine < 0.2 L Glucose 124 H POC Glucose Calcium Ferritin Total Bilirubin 2.30 H Alkaline Phosphatase 132 H Lactate Dehydrogenase Troponin T 0.080 H C-Reactive Protein Total Protein Albumin 3.6 L Prealbumin LDL Cholesterol Direct 41 L Arterial Blood Glucose Arterial Blood Ionized Calcium Urine WBC (Auto) 02/24/20 02/24/20 02/24/20 09:19 09:58 10:01 WBC RBC Hgb Hct MCV MCH RDW Plt Count Lymph % (Auto) [place] # (Auto) Seg Neutrophils % Seg Neuts % (Manual) Lymphocytes % (Manual) Monocytes % (Manual) Seg Neutrophils # Seg Neutrophils # Man Lymphocytes # (Manual) Monocytes # (Manual) Eosinophils # (Manual) Basophils # (Manual) PT INR D-Dimer ABG pH 7.176 L* POC ABG pCO2 POC ABG pO2 ABG pO2 91.2 H ABG HCO3 ABG O2 Saturation ABG Base Excess -4.6 L ABG Hemoglobin ABG Oxyhemoglobin ABG Potassium ABG Glucose Oxyhemoglobin 92.6 L Carboxyhemoglobin Sodium Potassium Chloride Carbon Dioxide BUN Creatinine Glucose POC Glucose Calcium Ferritin 1715.0 H Total Bilirubin Alkaline Phosphatase Lactate Dehydrogenase 303 H Troponin T C-Reactive Protein 26.10 H Total Protein Albumin Prealbumin LDL Cholesterol Direct Arterial Blood Glucose Arterial Blood Ionized Calcium Urine WBC (Auto) 02/24/20 02/24/20 02/24/20 11:52 13:45 19:35 WBC RBC Hgb Hct MCV MCH RDW Plt Count Lymph % (Auto) [place] # (Auto) Seg Neutrophils % Seg Neuts % (Manual) Lymphocytes % (Manual) Monocytes % (Manual) Seg Neutrophils # Seg Neutrophils # Man Lymphocytes # (Manual) Monocytes # (Manual) Eosinophils # (Manual) Basophils # (Manual) PT INR D-Dimer ABG pH 7.051 L* 7.300 L POC ABG pCO2 POC ABG pO2 ABG pO2 94.7 H 75.1 L ABG HCO3 18.0 L ABG O2 Saturation 93.5 L ABG Base Excess -6.8 L -7.8 L ABG Hemoglobin 13.2 L 11.9 L ABG Oxyhemoglobin ABG Potassium ABG Glucose Oxyhemoglobin 91.0 L 92.7 L Carboxyhemoglobin Sodium Potassium Chloride Carbon Dioxide BUN Creatinine Glucose POC Glucose Calcium Ferritin Total Bilirubin Alkaline Phosphatase Lactate Dehydrogenase Troponin T 0.034 H D C-Reactive Protein Total Protein Albumin Prealbumin LDL Cholesterol Direct Arterial Blood Glucose Arterial Blood Ionized Calcium Urine WBC (Auto) 02/25/20 02/25/20 02/25/20 04:00 04:00 12:26 WBC 22.9 H RBC Hgb Hct MCV 83 L MCH 27 L RDW Plt Count 468 H Lymph % (Auto) [place] # (Auto) Seg Neutrophils % Seg Neuts % (Manual) 89.0 H Lymphocytes % (Manual) 7.0 L Monocytes % (Manual) Seg Neutrophils # Seg Neutrophils # Man 20.4 H Lymphocytes # (Manual) Monocytes # (Manual) Eosinophils # (Manual) Basophils # (Manual) PT INR D-Dimer ABG pH POC ABG pCO2 POC ABG pO2 ABG pO2 ABG HCO3 ABG O2 Saturation ABG Base Excess ABG Hemoglobin ABG Oxyhemoglobin ABG Potassium 2.6 L ABG Glucose 142 H Oxyhemoglobin Carboxyhemoglobin Sodium Potassium 3.2 L Chloride Carbon Dioxide 18 L BUN Creatinine 0.2 L Glucose 114 H POC Glucose Calcium Ferritin Total Bilirubin Alkaline Phosphatase Lactate Dehydrogenase Troponin T C-Reactive Protein Total Protein Albumin 3.5 L Prealbumin LDL Cholesterol Direct Arterial Blood Glucose 142 H Arterial Blood Ionized Calcium Urine WBC (Auto) 02/26/20 02/26/20 02/26/20 15:58 17:00 23:43 WBC RBC Hgb Hct MCV MCH RDW Plt Count Lymph % (Auto) [place] # (Auto) Seg Neutrophils % Seg Neuts % (Manual) Lymphocytes % (Manual) Monocytes % (Manual) Seg Neutrophils # Seg Neutrophils # Man Lymphocytes # (Manual) Monocytes # (Manual) Eosinophils # (Manual) Basophils # (Manual) PT INR D-Dimer ABG pH 7.502 H POC ABG pCO2 POC ABG pO2 213.6 H ABG pO2 ABG HCO3 ABG O2 Saturation ABG Base Excess ABG Hemoglobin ABG Oxyhemoglobin 99.2 H ABG Potassium 2.9 L ABG Glucose 160 H Oxyhemoglobin Carboxyhemoglobin 0.4 L Sodium Potassium Chloride Carbon Dioxide BUN Creatinine Glucose POC Glucose 189 H 120 H Calcium Ferritin Total Bilirubin Alkaline Phosphatase Lactate Dehydrogenase Troponin T C-Reactive Protein Total Protein Albumin Prealbumin LDL Cholesterol Direct Arterial Blood Glucose 160 H Arterial Blood Ionized Calcium 4.5 L Urine WBC (Auto) 02/27/20 02/27/20 02/27/20 05:00 07:04 17:45 WBC RBC Hgb Hct MCV MCH RDW Plt Count Lymph % (Auto) [place] # (Auto) Seg Neutrophils % Seg Neuts % (Manual) Lymphocytes % (Manual) Monocytes % (Manual) Seg Neutrophils # Seg Neutrophils # Man Lymphocytes # (Manual) Monocytes # (Manual) Eosinophils # (Manual) Basophils # (Manual) PT INR D-Dimer ABG pH 7.524 H POC ABG pCO2 POC ABG pO2 ABG pO2 ABG HCO3 ABG O2 Saturation ABG Base Excess ABG Hemoglobin ABG Oxyhemoglobin ABG Potassium 3.0 L ABG Glucose 143 H Oxyhemoglobin Carboxyhemoglobin Sodium Potassium Chloride Carbon Dioxide BUN Creatinine Glucose POC Glucose 154 H 175 H Calcium Ferritin Total Bilirubin Alkaline Phosphatase Lactate Dehydrogenase Troponin T C-Reactive Protein Total Protein Albumin Prealbumin LDL Cholesterol Direct Arterial Blood Glucose 143 H Arterial Blood Ionized Calcium Urine WBC (Auto) 02/27/20 02/28/20 02/28/20 Unknown 00:21 04:15 WBC 18.7 H RBC Hgb Hct MCV MCH RDW Plt Count Lymph % (Auto) 8.7 L [place] # (Auto) 1.2 H Seg Neutrophils % 84.6 H Seg Neuts % (Manual) Lymphocytes % (Manual) Monocytes % (Manual) Seg Neutrophils # 15.9 H Seg Neutrophils # Man Lymphocytes # (Manual) Monocytes # (Manual) Eosinophils # (Manual) Basophils # (Manual) PT INR D-Dimer ABG pH POC ABG pCO2 POC ABG pO2 ABG pO2 ABG HCO3 ABG O2 Saturation ABG Base Excess ABG Hemoglobin ABG Oxyhemoglobin ABG Potassium ABG Glucose Oxyhemoglobin Carboxyhemoglobin Sodium Potassium 2.9 L* Chloride Carbon Dioxide 33 H D BUN Creatinine < 0.2 L Glucose 157 H POC Glucose 134 H Calcium Ferritin Total Bilirubin Alkaline Phosphatase Lactate Dehydrogenase Troponin T C-Reactive Protein Total Protein Albumin Prealbumin LDL Cholesterol Direct Arterial Blood Glucose Arterial Blood Ionized Calcium Urine WBC (Auto) 02/28/20 02/28/20 02/28/20 04:15 05:16 05:39 WBC RBC Hgb Hct MCV MCH RDW Plt Count Lymph % (Auto) [place] # (Auto) Seg Neutrophils % Seg Neuts % (Manual) Lymphocytes % (Manual) Monocytes % (Manual) Seg Neutrophils # Seg Neutrophils # Man Lymphocytes # (Manual) Monocytes # (Manual) Eosinophils # (Manual) Basophils # (Manual) PT INR D-Dimer ABG pH POC ABG pCO2 POC ABG pO2 ABG pO2 142.9 H ABG HCO3 34.1 H ABG O2 Saturation ABG Base Excess 8.3 H ABG Hemoglobin ABG Oxyhemoglobin ABG Potassium ABG Glucose Oxyhemoglobin Carboxyhemoglobin Sodium 151 H Potassium Chloride Carbon Dioxide 32 H BUN Creatinine 0.2 L Glucose 167 H POC Glucose 138 H Calcium Ferritin Total Bilirubin Alkaline Phosphatase Lactate Dehydrogenase Troponin T C-Reactive Protein Total Protein Albumin Prealbumin LDL Cholesterol Direct Arterial Blood Glucose Arterial Blood Ionized Calcium Urine WBC (Auto) 02/28/20 02/28/20 02/28/20 11:05 11:33 12:54 WBC RBC Hgb Hct MCV MCH RDW Plt Count Lymph % (Auto) [place] # (Auto) Seg Neutrophils % Seg Neuts % (Manual) Lymphocytes % (Manual) Monocytes % (Manual) Seg Neutrophils # Seg Neutrophils # Man Lymphocytes # (Manual) Monocytes # (Manual) Eosinophils # (Manual) Basophils # (Manual) PT INR D-Dimer ABG pH POC ABG pCO2 POC ABG pO2 ABG pO2 ABG HCO3 ABG O2 Saturation ABG Base Excess ABG Hemoglobin ABG Oxyhemoglobin ABG Potassium ABG Glucose Oxyhemoglobin Carboxyhemoglobin Sodium Potassium Chloride Carbon Dioxide BUN Creatinine Glucose POC Glucose 160 H Calcium Ferritin Total Bilirubin Alkaline Phosphatase Lactate Dehydrogenase Troponin T C-Reactive Protein 4.70 H Total Protein Albumin Prealbumin 0.090 L LDL Cholesterol Direct Arterial Blood Glucose Arterial Blood Ionized Calcium Urine WBC (Auto) 02/28/20 02/29/20 02/29/20 17:34 00:44 04:05 WBC 19.6 H RBC Hgb Hct MCV MCH 27 L RDW 15.4 H Plt Count Lymph % (Auto) [place] # (Auto) Seg Neutrophils % Seg Neuts % (Manual) 86.0 H Lymphocytes % (Manual) 7.0 L Monocytes % (Manual) Seg Neutrophils # Seg Neutrophils # Man 16.9 H Lymphocytes # (Manual) Monocytes # (Manual) 1.2 H Eosinophils # (Manual) Basophils # (Manual) PT INR D-Dimer ABG pH POC ABG pCO2 POC ABG pO2 ABG pO2 ABG HCO3 ABG O2 Saturation ABG Base Excess ABG Hemoglobin ABG Oxyhemoglobin ABG Potassium ABG Glucose Oxyhemoglobin Carboxyhemoglobin Sodium Potassium Chloride Carbon Dioxide BUN Creatinine Glucose POC Glucose 136 H 156 H Calcium Ferritin Total Bilirubin Alkaline Phosphatase Lactate Dehydrogenase Troponin T C-Reactive Protein Total Protein Albumin Prealbumin LDL Cholesterol Direct Arterial Blood Glucose Arterial Blood Ionized Calcium Urine WBC (Auto) 02/29/20 02/29/20 02/29/20 04:05 05:14 05:33 WBC RBC Hgb Hct MCV MCH RDW Plt Count Lymph % (Auto) [place] # (Auto) Seg Neutrophils % Seg Neuts % (Manual) Lymphocytes % (Manual) Monocytes % (Manual) Seg Neutrophils # Seg Neutrophils # Man Lymphocytes # (Manual) Monocytes # (Manual) Eosinophils # (Manual) Basophils # (Manual) PT INR D-Dimer ABG pH POC ABG pCO2 54.3 H POC ABG pO2 124.8 H ABG pO2 ABG HCO3 ABG O2 Saturation ABG Base Excess ABG Hemoglobin ABG Oxyhemoglobin ABG Potassium ABG Glucose 185 H Oxyhemoglobin Carboxyhemoglobin Sodium 148 H Potassium Chloride Carbon Dioxide 33 H BUN Creatinine < 0.2 L Glucose 173 H POC Glucose 152 H Calcium Ferritin Total Bilirubin Alkaline Phosphatase Lactate Dehydrogenase Troponin T C-Reactive Protein Total Protein Albumin Prealbumin LDL Cholesterol Direct Arterial Blood Glucose 185 H Arterial Blood Ionized Calcium Urine WBC (Auto) 03/01/20 03/01/20 03/01/20 00:00 03:45 04:33 WBC 23.1 H RBC Hgb Hct MCV MCH 27 L RDW 15.3 H Plt Count Lymph % (Auto) [place] # (Auto) Seg Neutrophils % Seg Neuts % (Manual) 92.0 H Lymphocytes % (Manual) 6.0 L Monocytes % (Manual) Seg Neutrophils # Seg Neutrophils # Man 21.3 H Lymphocytes # (Manual) Monocytes # (Manual) Eosinophils # (Manual) 0.5 H Basophils # (Manual) PT INR D-Dimer ABG pH 7.492 H POC ABG pCO2 POC ABG pO2 ABG pO2 157.1 H ABG HCO3 32.3 H ABG O2 Saturation ABG Base Excess 8.1 H ABG Hemoglobin 13.2 L ABG Oxyhemoglobin ABG Potassium ABG Glucose Oxyhemoglobin Carboxyhemoglobin Sodium Potassium Chloride Carbon Dioxide BUN Creatinine Glucose POC Glucose 109 H Calcium Ferritin Total Bilirubin Alkaline Phosphatase Lactate Dehydrogenase Troponin T C-Reactive Protein Total Protein Albumin Prealbumin LDL Cholesterol Direct Arterial Blood Glucose Arterial Blood Ionized Calcium Urine WBC (Auto) 03/01/20 03/01/20 03/01/20 04:33 05:29 12:32 WBC RBC Hgb Hct MCV MCH RDW Plt Count Lymph % (Auto) [place] # (Auto) Seg Neutrophils % Seg Neuts % (Manual) Lymphocytes % (Manual) Monocytes % (Manual) Seg Neutrophils # Seg Neutrophils # Man Lymphocytes # (Manual) Monocytes # (Manual) Eosinophils # (Manual) Basophils # (Manual) PT INR D-Dimer ABG pH POC ABG pCO2 POC ABG pO2 ABG pO2 ABG HCO3 ABG O2 Saturation ABG Base Excess ABG Hemoglobin ABG Oxyhemoglobin ABG Potassium ABG Glucose Oxyhemoglobin Carboxyhemoglobin Sodium 146 H Potassium Chloride Carbon Dioxide 32 H BUN Creatinine < 0.2 L Glucose 120 H POC Glucose 120 H 128 H Calcium Ferritin Total Bilirubin Alkaline Phosphatase Lactate Dehydrogenase Troponin T C-Reactive Protein Total Protein Albumin Prealbumin LDL Cholesterol Direct Arterial Blood Glucose Arterial Blood Ionized Calcium Urine WBC (Auto) 03/01/20 03/01/20 03/02/20 17:38 23:46 06:13 WBC RBC Hgb Hct MCV MCH RDW Plt Count Lymph % (Auto) [place] # (Auto) Seg Neutrophils % Seg Neuts % (Manual) Lymphocytes % (Manual) Monocytes % (Manual) Seg Neutrophils # Seg Neutrophils # Man Lymphocytes # (Manual) Monocytes # (Manual) Eosinophils # (Manual) Basophils # (Manual) PT INR D-Dimer ABG pH POC ABG pCO2 POC ABG pO2 ABG pO2 ABG HCO3 ABG O2 Saturation ABG Base Excess ABG Hemoglobin ABG Oxyhemoglobin ABG Potassium ABG Glucose Oxyhemoglobin Carboxyhemoglobin Sodium Potassium Chloride Carbon Dioxide BUN Creatinine Glucose POC Glucose 114 H 121 H 120 H Calcium Ferritin Total Bilirubin Alkaline Phosphatase Lactate Dehydrogenase Troponin T C-Reactive Protein Total Protein Albumin Prealbumin LDL Cholesterol Direct Arterial Blood Glucose Arterial Blood Ionized Calcium Urine WBC (Auto) 03/02/20 03/02/20 03/03/20 09:47 09:47 10:21 WBC 23.6 H RBC Hgb Hct MCV MCH RDW 15.3 H Plt Count 494 H Lymph % (Auto) [place] # (Auto) Seg Neutrophils % Seg Neuts % (Manual) 85.0 H Lymphocytes % (Manual) 6.0 L Monocytes % (Manual) Seg Neutrophils # Seg Neutrophils # Man 20.1 H Lymphocytes # (Manual) Monocytes # (Manual) 1.7 H Eosinophils # (Manual) Basophils # (Manual) PT INR D-Dimer ABG pH POC ABG pCO2 POC ABG pO2 ABG pO2 ABG HCO3 ABG O2 Saturation ABG Base Excess ABG Hemoglobin ABG Oxyhemoglobin ABG Potassium 3.3 L ABG Glucose 158 H Oxyhemoglobin Carboxyhemoglobin Sodium Potassium Chloride Carbon Dioxide BUN Creatinine < 0.2 L Glucose 177 H POC Glucose Calcium Ferritin Total Bilirubin Alkaline Phosphatase Lactate Dehydrogenase Troponin T C-Reactive Protein Total Protein Albumin Prealbumin LDL Cholesterol Direct Arterial Blood Glucose 158 H Arterial Blood Ionized Calcium Urine WBC (Auto) 03/03/20 03/04/20 03/04/20 21:30 00:00 12:23 WBC RBC Hgb Hct MCV MCH RDW Plt Count Lymph % (Auto) [place] # (Auto) Seg Neutrophils % Seg Neuts % (Manual) Lymphocytes % (Manual) Monocytes % (Manual) Seg Neutrophils # Seg Neutrophils # Man Lymphocytes # (Manual) Monocytes # (Manual) Eosinophils # (Manual) Basophils # (Manual) PT INR D-Dimer ABG pH 7.328 L POC ABG pCO2 POC ABG pO2 ABG pO2 68.4 L ABG HCO3 35.0 H ABG O2 Saturation 93.9 L ABG Base Excess 6.8 H ABG Hemoglobin 12.7 L ABG Oxyhemoglobin ABG Potassium ABG Glucose Oxyhemoglobin 91.9 L Carboxyhemoglobin Sodium Potassium Chloride Carbon Dioxide BUN Creatinine Glucose POC Glucose 187 H 163 H Calcium Ferritin Total Bilirubin Alkaline Phosphatase Lactate Dehydrogenase Troponin T C-Reactive Protein Total Protein Albumin Prealbumin LDL Cholesterol Direct Arterial Blood Glucose Arterial Blood Ionized Calcium Urine WBC (Auto) 03/04/20 03/04/20 03/05/20 18:15 21:30 06:02 WBC RBC Hgb Hct MCV MCH RDW Plt Count Lymph % (Auto) [place] # (Auto) Seg Neutrophils % Seg Neuts % (Manual) Lymphocytes % (Manual) Monocytes % (Manual) Seg Neutrophils # Seg Neutrophils # Man Lymphocytes # (Manual) Monocytes # (Manual) Eosinophils # (Manual) Basophils # (Manual) PT INR D-Dimer ABG pH 7.297 L POC ABG pCO2 POC ABG pO2 ABG pO2 ABG HCO3 41.0 H ABG O2 Saturation ABG Base Excess 11.0 H ABG Hemoglobin 13.1 L ABG Oxyhemoglobin ABG Potassium ABG Glucose Oxyhemoglobin 94.5 L Carboxyhemoglobin Sodium Potassium Chloride Carbon Dioxide BUN Creatinine Glucose POC Glucose 192 H 127 H Calcium Ferritin Total Bilirubin Alkaline Phosphatase Lactate Dehydrogenase Troponin T C-Reactive Protein Total Protein Albumin Prealbumin LDL Cholesterol Direct Arterial Blood Glucose Arterial Blood Ionized Calcium Urine WBC (Auto) 03/05/20 03/05/20 03/06/20 12:09 16:42 00:24 WBC RBC Hgb Hct MCV MCH RDW Plt Count Lymph % (Auto) [place] # (Auto) Seg Neutrophils % Seg Neuts % (Manual) Lymphocytes % (Manual) Monocytes % (Manual) Seg Neutrophils # Seg Neutrophils # Man Lymphocytes # (Manual) Monocytes # (Manual) Eosinophils # (Manual) Basophils # (Manual) PT INR D-Dimer ABG pH POC ABG pCO2 POC ABG pO2 ABG pO2 ABG HCO3 ABG O2 Saturation ABG Base Excess ABG Hemoglobin ABG Oxyhemoglobin ABG Potassium ABG Glucose Oxyhemoglobin Carboxyhemoglobin Sodium Potassium Chloride Carbon Dioxide BUN Creatinine Glucose POC Glucose 147 H 114 H 134 H Calcium Ferritin Total Bilirubin Alkaline Phosphatase Lactate Dehydrogenase Troponin T C-Reactive Protein Total Protein Albumin Prealbumin LDL Cholesterol Direct Arterial Blood Glucose Arterial Blood Ionized Calcium Urine WBC (Auto) 03/06/20 03/06/20 03/06/20 04:34 05:53 06:08 WBC 25.4 H RBC Hgb 10.5 L Hct 32.7 L MCV MCH 27 L RDW 15.3 H Plt Count 634 H Lymph % (Auto) [place] # (Auto) Seg Neutrophils % Seg Neuts % (Manual) 88.0 H Lymphocytes % (Manual) 2.0 L Monocytes % (Manual) 8.0 H Seg Neutrophils # Seg Neutrophils # Man 22.4 H Lymphocytes # (Manual) 0.5 L Monocytes # (Manual) 2.0 H Eosinophils # (Manual) Basophils # (Manual) PT INR D-Dimer ABG pH POC ABG pCO2 POC ABG pO2 ABG pO2 ABG HCO3 37.9 H ABG O2 Saturation ABG Base Excess 11.4 H ABG Hemoglobin 10.6 L ABG Oxyhemoglobin ABG Potassium ABG Glucose Oxyhemoglobin 94.7 L Carboxyhemoglobin Sodium Potassium Chloride Carbon Dioxide BUN Creatinine Glucose POC Glucose 135 H Calcium Ferritin Total Bilirubin Alkaline Phosphatase Lactate Dehydrogenase Troponin T C-Reactive Protein Total Protein Albumin Prealbumin LDL Cholesterol Direct Arterial Blood Glucose Arterial Blood Ionized Calcium Urine WBC (Auto) 03/06/20 03/06/20 03/06/20 06:08 12:19 19:10 WBC RBC Hgb Hct MCV MCH RDW Plt Count Lymph % (Auto) [place] # (Auto) Seg Neutrophils % Seg Neuts % (Manual) Lymphocytes % (Manual) Monocytes % (Manual) Seg Neutrophils # Seg Neutrophils # Man Lymphocytes # (Manual) Monocytes # (Manual) Eosinophils # (Manual) Basophils # (Manual) PT INR D-Dimer ABG pH POC ABG pCO2 POC ABG pO2 ABG pO2 ABG HCO3 ABG O2 Saturation ABG Base Excess ABG Hemoglobin ABG Oxyhemoglobin ABG Potassium ABG Glucose Oxyhemoglobin Carboxyhemoglobin Sodium 150 H D Potassium Chloride Carbon Dioxide 39 H D BUN 23 H Creatinine < 0.2 L Glucose 144 H POC Glucose 169 H 152 H Calcium Ferritin Total Bilirubin Alkaline Phosphatase Lactate Dehydrogenase Troponin T C-Reactive Protein Total Protein Albumin 3.3 L Prealbumin LDL Cholesterol Direct Arterial Blood Glucose Arterial Blood Ionized Calcium Urine WBC (Auto) 03/06/20 03/07/20 03/07/20 23:58 04:25 04:25 WBC 22.1 H RBC Hgb 10.9 L Hct 32.9 L MCV MCH RDW 15.5 H Plt Count 739 H Lymph % (Auto) 7.8 L [place] # (Auto) 1.3 H Seg Neutrophils % 85.5 H Seg Neuts % (Manual) Lymphocytes % (Manual) Monocytes % (Manual) Seg Neutrophils # 18.9 H Seg Neutrophils # Man Lymphocytes # (Manual) Monocytes # (Manual) Eosinophils # (Manual) Basophils # (Manual) PT INR D-Dimer ABG pH POC ABG pCO2 POC ABG pO2 ABG pO2 ABG HCO3 ABG O2 Saturation ABG Base Excess ABG Hemoglobin ABG Oxyhemoglobin ABG Potassium ABG Glucose Oxyhemoglobin Carboxyhemoglobin Sodium 146 H Potassium Chloride Carbon Dioxide 37 H BUN Creatinine < 0.2 L Glucose 118 H POC Glucose 111 H Calcium Ferritin Total Bilirubin Alkaline Phosphatase Lactate Dehydrogenase Troponin T C-Reactive Protein Total Protein Albumin 3.7 L Prealbumin LDL Cholesterol Direct Arterial Blood Glucose Arterial Blood Ionized Calcium Urine WBC (Auto) 03/07/20 03/07/20 03/07/20 05:20 17:45 23:32 WBC RBC Hgb Hct MCV MCH RDW Plt Count Lymph % (Auto) [place] # (Auto) Seg Neutrophils % Seg Neuts % (Manual) Lymphocytes % (Manual) Monocytes % (Manual) Seg Neutrophils # Seg Neutrophils # Man Lymphocytes # (Manual) Monocytes # (Manual) Eosinophils # (Manual) Basophils # (Manual) PT INR D-Dimer ABG pH POC ABG pCO2 POC ABG pO2 ABG pO2 ABG HCO3 ABG O2 Saturation ABG Base Excess ABG Hemoglobin ABG Oxyhemoglobin ABG Potassium ABG Glucose Oxyhemoglobin Carboxyhemoglobin Sodium Potassium Chloride Carbon Dioxide BUN Creatinine Glucose POC Glucose 113 H 124 H 210 H Calcium Ferritin Total Bilirubin Alkaline Phosphatase Lactate Dehydrogenase Troponin T C-Reactive Protein Total Protein Albumin Prealbumin LDL Cholesterol Direct Arterial Blood Glucose Arterial Blood Ionized Calcium Urine WBC (Auto) 03/08/20 03/08/20 03/08/20 05:35 06:43 06:43 WBC 28.9 H RBC 3.53 L Hgb 9.7 L Hct 30.3 L MCV MCH RDW 15.6 H Plt Count 578 H Lymph % (Auto) [place] # (Auto) Seg Neutrophils % Seg Neuts % (Manual) 93.0 H Lymphocytes % (Manual) 4.0 L Monocytes % (Manual) Seg Neutrophils # Seg Neutrophils # Man 26.9 H Lymphocytes # (Manual) Monocytes # (Manual) Eosinophils # (Manual) Basophils # (Manual) PT INR D-Dimer ABG pH POC ABG pCO2 POC ABG pO2 ABG pO2 ABG HCO3 ABG O2 Saturation ABG Base Excess ABG Hemoglobin ABG Oxyhemoglobin ABG Potassium ABG Glucose Oxyhemoglobin Carboxyhemoglobin Sodium 146 H Potassium Chloride Carbon Dioxide 35 H BUN 34 H Creatinine 0.3 L D Glucose 125 H POC Glucose 147 H Calcium Ferritin Total Bilirubin Alkaline Phosphatase Lactate Dehydrogenase Troponin T C-Reactive Protein Total Protein 5.9 L Albumin 3.2 L Prealbumin LDL Cholesterol Direct Arterial Blood Glucose Arterial Blood Ionized Calcium Urine WBC (Auto) 03/08/20 03/08/20 03/08/20 08:57 11:14 12:34 WBC RBC Hgb Hct MCV MCH RDW Plt Count Lymph % (Auto) [place] # (Auto) Seg Neutrophils % Seg Neuts % (Manual) Lymphocytes % (Manual) Monocytes % (Manual) Seg Neutrophils # Seg Neutrophils # Man Lymphocytes # (Manual) Monocytes # (Manual) Eosinophils # (Manual) Basophils # (Manual) PT INR D-Dimer ABG pH POC ABG pCO2 63.1 H POC ABG pO2 ABG pO2 ABG HCO3 ABG O2 Saturation ABG Base Excess ABG Hemoglobin 10.9 L ABG Oxyhemoglobin ABG Potassium ABG Glucose 176 H Oxyhemoglobin Carboxyhemoglobin Sodium Potassium Chloride Carbon Dioxide BUN Creatinine Glucose POC Glucose 171 H Calcium Ferritin Total Bilirubin Alkaline Phosphatase Lactate Dehydrogenase Troponin T C-Reactive Protein Total Protein Albumin Prealbumin LDL Cholesterol Direct Arterial Blood Glucose 176 H Arterial Blood Ionized Calcium 4.5 L Urine WBC (Auto) 10.0 H 03/08/20 03/08/20 03/09/20 18:02 23:43 05:49 WBC RBC Hgb Hct MCV MCH RDW Plt Count Lymph % (Auto) [place] # (Auto) Seg Neutrophils % Seg Neuts % (Manual) Lymphocytes % (Manual) Monocytes % (Manual) Seg Neutrophils # Seg Neutrophils # Man Lymphocytes # (Manual) Monocytes # (Manual) Eosinophils # (Manual) Basophils # (Manual) PT INR D-Dimer ABG pH POC ABG pCO2 POC ABG pO2 ABG pO2 ABG HCO3 ABG O2 Saturation ABG Base Excess ABG Hemoglobin ABG Oxyhemoglobin ABG Potassium ABG Glucose Oxyhemoglobin Carboxyhemoglobin Sodium Potassium Chloride Carbon Dioxide BUN Creatinine Glucose POC Glucose 157 H 134 H 163 H Calcium Ferritin Total Bilirubin Alkaline Phosphatase Lactate Dehydrogenase Troponin T C-Reactive Protein Total Protein Albumin Prealbumin LDL Cholesterol Direct Arterial Blood Glucose Arterial Blood Ionized Calcium Urine WBC (Auto) 03/09/20 03/09/20 03/09/20 08:35 08:35 12:11 WBC 23.4 H RBC 3.36 L Hgb 9.3 L Hct 28.8 L MCV MCH RDW 15.9 H Plt Count 521 H Lymph % (Auto) [place] # (Auto) Seg Neutrophils % Seg Neuts % (Manual) 87.0 H Lymphocytes % (Manual) 4.0 L Monocytes % (Manual) 9.0 H Seg Neutrophils # Seg Neutrophils # Man 20.4 H Lymphocytes # (Manual) 0.9 L Monocytes # (Manual) 2.1 H Eosinophils # (Manual) Basophils # (Manual) PT INR D-Dimer ABG pH POC ABG pCO2 POC ABG pO2 ABG pO2 ABG HCO3 ABG O2 Saturation ABG Base Excess ABG Hemoglobin ABG Oxyhemoglobin ABG Potassium ABG Glucose Oxyhemoglobin Carboxyhemoglobin Sodium 147 H Potassium Chloride Carbon Dioxide 37 H BUN 63 H Creatinine Glucose 154 H POC Glucose 128 H Calcium Ferritin Total Bilirubin Alkaline Phosphatase Lactate Dehydrogenase Troponin T C-Reactive Protein Total Protein Albumin Prealbumin LDL Cholesterol Direct Arterial Blood Glucose Arterial Blood Ionized Calcium Urine WBC (Auto) 03/09/20 03/10/20 03/10/20 17:51 00:25 05:41 WBC RBC Hgb Hct MCV MCH RDW Plt Count Lymph % (Auto) [place] # (Auto) Seg Neutrophils % Seg Neuts % (Manual) Lymphocytes % (Manual) Monocytes % (Manual) Seg Neutrophils # Seg Neutrophils # Man Lymphocytes # (Manual) Monocytes # (Manual) Eosinophils # (Manual) Basophils # (Manual) PT INR D-Dimer ABG pH POC ABG pCO2 POC ABG pO2 ABG pO2 ABG HCO3 ABG O2 Saturation ABG Base Excess ABG Hemoglobin ABG Oxyhemoglobin ABG Potassium ABG Glucose Oxyhemoglobin Carboxyhemoglobin Sodium Potassium Chloride Carbon Dioxide BUN Creatinine Glucose POC Glucose 127 H 128 H 153 H Calcium Ferritin Total Bilirubin Alkaline Phosphatase Lactate Dehydrogenase Troponin T C-Reactive Protein Total Protein Albumin Prealbumin LDL Cholesterol Direct Arterial Blood Glucose Arterial Blood Ionized Calcium Urine WBC (Auto) 03/10/20 03/10/20 03/10/20 06:14 06:14 12:02 WBC 18.3 H RBC 3.45 L Hgb 9.5 L Hct 29.5 L MCV MCH RDW 16.1 H Plt Count 494 H Lymph % (Auto) [place] # (Auto) Seg Neutrophils % Seg Neuts % (Manual) 95.0 H Lymphocytes % (Manual) 1.0 L Monocytes % (Manual) Seg Neutrophils # Seg Neutrophils # Man 17.4 H Lymphocytes # (Manual) 0.2 L Monocytes # (Manual) Eosinophils # (Manual) Basophils # (Manual) PT INR D-Dimer ABG pH POC ABG pCO2 POC ABG pO2 ABG pO2 ABG HCO3 ABG O2 Saturation ABG Base Excess ABG Hemoglobin ABG Oxyhemoglobin ABG Potassium ABG Glucose Oxyhemoglobin Carboxyhemoglobin Sodium 149 H Potassium Chloride Carbon Dioxide 35 H BUN 34 H Creatinine 0.2 L D Glucose 177 H POC Glucose 151 H Calcium Ferritin Total Bilirubin Alkaline Phosphatase Lactate Dehydrogenase Troponin T C-Reactive Protein Total Protein Albumin Prealbumin LDL Cholesterol Direct Arterial Blood Glucose Arterial Blood Ionized Calcium Urine WBC (Auto) 03/10/20 03/10/20 03/11/20 17:41 23:53 05:02 WBC RBC Hgb Hct MCV MCH RDW Plt Count Lymph % (Auto) [place] # (Auto) Seg Neutrophils % Seg Neuts % (Manual) Lymphocytes % (Manual) Monocytes % (Manual) Seg Neutrophils # Seg Neutrophils # Man Lymphocytes # (Manual) Monocytes # (Manual) Eosinophils # (Manual) Basophils # (Manual) PT INR D-Dimer ABG pH POC ABG pCO2 POC ABG pO2 ABG pO2 ABG HCO3 ABG O2 Saturation ABG Base Excess ABG Hemoglobin ABG Oxyhemoglobin ABG Potassium ABG Glucose Oxyhemoglobin Carboxyhemoglobin Sodium Potassium Chloride Carbon Dioxide BUN Creatinine Glucose POC Glucose 168 H 142 H 146 H Calcium Ferritin Total Bilirubin Alkaline Phosphatase Lactate Dehydrogenase Troponin T C-Reactive Protein Total Protein Albumin Prealbumin LDL Cholesterol Direct Arterial Blood Glucose Arterial Blood Ionized Calcium Urine WBC (Auto) 03/11/20 03/11/20 03/11/20 11:30 14:01 14:01 WBC 19.7 H RBC 3.04 L Hgb 8.7 L Hct 25.8 L MCV MCH RDW 15.6 H Plt Count Lymph % (Auto) [place] # (Auto) Seg Neutrophils % Seg Neuts % (Manual) Lymphocytes % (Manual) Monocytes % (Manual) Seg Neutrophils # Seg Neutrophils # Man Lymphocytes # (Manual) Monocytes # (Manual) Eosinophils # (Manual) Basophils # (Manual) PT INR D-Dimer ABG pH POC ABG pCO2 POC ABG pO2 ABG pO2 ABG HCO3 ABG O2 Saturation ABG Base Excess ABG Hemoglobin ABG Oxyhemoglobin ABG Potassium ABG Glucose Oxyhemoglobin Carboxyhemoglobin Sodium 151 H Potassium Chloride Carbon Dioxide 37 H BUN Creatinine < 0.2 L Glucose 171 H POC Glucose 248 H Calcium Ferritin Total Bilirubin Alkaline Phosphatase Lactate Dehydrogenase Troponin T C-Reactive Protein Total Protein Albumin Prealbumin LDL Cholesterol Direct Arterial Blood Glucose Arterial Blood Ionized Calcium Urine WBC (Auto) 03/11/20 03/11/20 03/12/20 17:09 23:52 04:39 WBC 19.9 H RBC 3.16 L Hgb 8.9 L Hct 27.5 L MCV MCH RDW 15.7 H Plt Count Lymph % (Auto) 6.8 L [place] # (Auto) 1.2 H Seg Neutrophils % 86.0 H Seg Neuts % (Manual) Lymphocytes % (Manual) Monocytes % (Manual) Seg Neutrophils # 17.1 H Seg Neutrophils # Man Lymphocytes # (Manual) Monocytes # (Manual) Eosinophils # (Manual) Basophils # (Manual) PT INR D-Dimer ABG pH POC ABG pCO2 POC ABG pO2 ABG pO2 ABG HCO3 ABG O2 Saturation ABG Base Excess ABG Hemoglobin ABG Oxyhemoglobin ABG Potassium ABG Glucose Oxyhemoglobin Carboxyhemoglobin Sodium Potassium Chloride Carbon Dioxide BUN Creatinine Glucose POC Glucose 124 H 131 H Calcium Ferritin Total Bilirubin Alkaline Phosphatase Lactate Dehydrogenase Troponin T C-Reactive Protein Total Protein Albumin Prealbumin LDL Cholesterol Direct Arterial Blood Glucose Arterial Blood Ionized Calcium Urine WBC (Auto) 03/12/20 03/12/20 03/12/20 04:39 05:28 11:34 WBC RBC Hgb Hct MCV MCH RDW Plt Count Lymph % (Auto) [place] # (Auto) Seg Neutrophils % Seg Neuts % (Manual) Lymphocytes % (Manual) Monocytes % (Manual) Seg Neutrophils # Seg Neutrophils # Man Lymphocytes # (Manual) Monocytes # (Manual) Eosinophils # (Manual) Basophils # (Manual) PT INR D-Dimer ABG pH POC ABG pCO2 POC ABG pO2 ABG pO2 ABG HCO3 ABG O2 Saturation ABG Base Excess ABG Hemoglobin ABG Oxyhemoglobin ABG Potassium ABG Glucose Oxyhemoglobin Carboxyhemoglobin Sodium 147 H Potassium Chloride Carbon Dioxide 40 H BUN Creatinine < 0.2 L Glucose 175 H POC Glucose 167 H 144 H Calcium Ferritin Total Bilirubin Alkaline Phosphatase Lactate Dehydrogenase Troponin T C-Reactive Protein Total Protein Albumin Prealbumin LDL Cholesterol Direct Arterial Blood Glucose Arterial Blood Ionized Calcium Urine WBC (Auto) 03/12/20 03/12/20 03/13/20 17:32 23:57 05:57 WBC RBC Hgb Hct MCV MCH RDW Plt Count Lymph % (Auto) [place] # (Auto) Seg Neutrophils % Seg Neuts % (Manual) Lymphocytes % (Manual) Monocytes % (Manual) Seg Neutrophils # Seg Neutrophils # Man Lymphocytes # (Manual) Monocytes # (Manual) Eosinophils # (Manual) Basophils # (Manual) PT INR D-Dimer ABG pH POC ABG pCO2 POC ABG pO2 ABG pO2 ABG HCO3 ABG O2 Saturation ABG Base Excess ABG Hemoglobin ABG Oxyhemoglobin ABG Potassium ABG Glucose Oxyhemoglobin Carboxyhemoglobin Sodium Potassium Chloride Carbon Dioxide BUN Creatinine Glucose POC Glucose 141 H 137 H 161 H Calcium Ferritin Total Bilirubin Alkaline Phosphatase Lactate Dehydrogenase Troponin T C-Reactive Protein Total Protein Albumin Prealbumin LDL Cholesterol Direct Arterial Blood Glucose Arterial Blood Ionized Calcium Urine WBC (Auto) 03/13/20 03/13/20 03/13/20 12:28 14:14 18:39 WBC RBC Hgb Hct MCV MCH RDW Plt Count Lymph % (Auto) [place] # (Auto) Seg Neutrophils % Seg Neuts % (Manual) Lymphocytes % (Manual) Monocytes % (Manual) Seg Neutrophils # Seg Neutrophils # Man Lymphocytes # (Manual) Monocytes # (Manual) Eosinophils # (Manual) Basophils # (Manual) PT INR D-Dimer ABG pH POC ABG pCO2 POC ABG pO2 ABG pO2 ABG HCO3 ABG O2 Saturation ABG Base Excess ABG Hemoglobin ABG Oxyhemoglobin ABG Potassium ABG Glucose Oxyhemoglobin Carboxyhemoglobin Sodium Potassium Chloride Carbon Dioxide 39 H BUN Creatinine < 0.2 L Glucose 129 H POC Glucose 130 H 125 H Calcium Ferritin Total Bilirubin Alkaline Phosphatase Lactate Dehydrogenase Troponin T C-Reactive Protein Total Protein Albumin Prealbumin LDL Cholesterol Direct Arterial Blood Glucose Arterial Blood Ionized Calcium Urine WBC (Auto) 03/13/20 03/14/20 03/14/20 23:33 05:24 08:07 WBC 16.8 H RBC 2.81 L Hgb 7.9 L Hct 23.9 L MCV MCH RDW 15.9 H Plt Count Lymph % (Auto) [place] # (Auto) Seg Neutrophils % Seg Neuts % (Manual) 84.0 H Lymphocytes % (Manual) 10.0 L Monocytes % (Manual) Seg Neutrophils # Seg Neutrophils # Man 14.1 H Lymphocytes # (Manual) Monocytes # (Manual) Eosinophils # (Manual) Basophils # (Manual) PT INR D-Dimer ABG pH POC ABG pCO2 POC ABG pO2 ABG pO2 ABG HCO3 ABG O2 Saturation ABG Base Excess ABG Hemoglobin ABG Oxyhemoglobin ABG Potassium ABG Glucose Oxyhemoglobin Carboxyhemoglobin Sodium Potassium Chloride Carbon Dioxide BUN Creatinine Glucose POC Glucose 146 H 125 H Calcium Ferritin Total Bilirubin Alkaline Phosphatase Lactate Dehydrogenase Troponin T C-Reactive Protein Total Protein Albumin Prealbumin LDL Cholesterol Direct Arterial Blood Glucose Arterial Blood Ionized Calcium Urine WBC (Auto) 03/14/20 03/14/20 03/14/20 08:07 12:21 18:26 WBC RBC Hgb Hct MCV MCH RDW Plt Count Lymph % (Auto) [place] # (Auto) Seg Neutrophils % Seg Neuts % (Manual) Lymphocytes % (Manual) Monocytes % (Manual) Seg Neutrophils # Seg Neutrophils # Man Lymphocytes # (Manual) Monocytes # (Manual) Eosinophils # (Manual) Basophils # (Manual) PT INR D-Dimer ABG pH POC ABG pCO2 POC ABG pO2 ABG pO2 ABG HCO3 ABG O2 Saturation ABG Base Excess ABG Hemoglobin ABG Oxyhemoglobin ABG Potassium ABG Glucose Oxyhemoglobin Carboxyhemoglobin Sodium Potassium Chloride 97.0 L Carbon Dioxide 37 H BUN Creatinine < 0.2 L Glucose 129 H POC Glucose 109 H 142 H Calcium 8.3 L Ferritin Total Bilirubin Alkaline Phosphatase Lactate Dehydrogenase Troponin T C-Reactive Protein Total Protein Albumin Prealbumin LDL Cholesterol Direct Arterial Blood Glucose Arterial Blood Ionized Calcium Urine WBC (Auto) 11/17/20 11/18/20 11/18/20 23:57 05:46 08:06 WBC 19.7 H RBC 3.29 L Hgb 9.1 L Hct 28.0 L MCV MCH RDW 15.9 H Plt Count Lymph % (Auto) [place] # (Auto) Seg Neutrophils % Seg Neuts % (Manual) Lymphocytes % (Manual) Monocytes % (Manual) Seg Neutrophils # Seg Neutrophils # Man Lymphocytes # (Manual) Monocytes # (Manual) Eosinophils # (Manual) Basophils # (Manual) PT INR D-Dimer ABG pH POC ABG pCO2 POC ABG pO2 ABG pO2 ABG HCO3 ABG O2 Saturation ABG Base Excess ABG Hemoglobin ABG Oxyhemoglobin ABG Potassium ABG Glucose Oxyhemoglobin Carboxyhemoglobin Sodium Potassium Chloride Carbon Dioxide BUN Creatinine Glucose POC Glucose 157 H 118 H Calcium Ferritin Total Bilirubin Alkaline Phosphatase Lactate Dehydrogenase Troponin T C-Reactive Protein Total Protein Albumin Prealbumin LDL Cholesterol Direct Arterial Blood Glucose Arterial Blood Ionized Calcium Urine WBC (Auto) 03/15/20 03/15/20 03/15/20 08:06 12:44 18:09 WBC RBC Hgb Hct MCV MCH RDW Plt Count Lymph % (Auto) [place] # (Auto) Seg Neutrophils % Seg Neuts % (Manual) Lymphocytes % (Manual) Monocytes % (Manual) Seg Neutrophils # Seg Neutrophils # Man Lymphocytes # (Manual) Monocytes # (Manual) Eosinophils # (Manual) Basophils # (Manual) PT INR D-Dimer ABG pH POC ABG pCO2 POC ABG pO2 ABG pO2 ABG HCO3 ABG O2 Saturation ABG Base Excess ABG Hemoglobin ABG Oxyhemoglobin ABG Potassium ABG Glucose Oxyhemoglobin Carboxyhemoglobin Sodium 136 L Potassium Chloride 93.6 L Carbon Dioxide 37 H BUN Creatinine < 0.2 L Glucose 132 H POC Glucose 151 H 164 H Calcium Ferritin Total Bilirubin Alkaline Phosphatase Lactate Dehydrogenase Troponin T C-Reactive Protein Total Protein Albumin Prealbumin LDL Cholesterol Direct Arterial Blood Glucose Arterial Blood Ionized Calcium Urine WBC (Auto) 03/15/20 03/16/20 03/16/20 23:26 05:39 11:58 WBC RBC Hgb Hct MCV MCH RDW Plt Count Lymph % (Auto) [place] # (Auto) Seg Neutrophils % Seg Neuts % (Manual) Lymphocytes % (Manual) Monocytes % (Manual) Seg Neutrophils # Seg Neutrophils # Man Lymphocytes # (Manual) Monocytes # (Manual) Eosinophils # (Manual) Basophils # (Manual) PT INR D-Dimer ABG pH POC ABG pCO2 POC ABG pO2 ABG pO2 ABG HCO3 ABG O2 Saturation ABG Base Excess ABG Hemoglobin ABG Oxyhemoglobin ABG Potassium ABG Glucose Oxyhemoglobin Carboxyhemoglobin Sodium Potassium Chloride Carbon Dioxide BUN Creatinine Glucose POC Glucose 136 H 116 H 109 H Calcium Ferritin Total Bilirubin Alkaline Phosphatase Lactate Dehydrogenase Troponin T C-Reactive Protein Total Protein Albumin Prealbumin LDL Cholesterol Direct Arterial Blood Glucose Arterial Blood Ionized Calcium Urine WBC (Auto) 03/16/20 03/17/20 03/17/20 23:56 04:40 04:40 WBC 18.0 H RBC 3.33 L Hgb 9.5 L Hct 28.8 L MCV MCH RDW 16.4 H Plt Count 499 H Lymph % (Auto) [place] # (Auto) Seg Neutrophils % Seg Neuts % (Manual) 82.0 H Lymphocytes % (Manual) 8.0 L Monocytes % (Manual) Seg Neutrophils # Seg Neutrophils # Man 14.8 H Lymphocytes # (Manual) Monocytes # (Manual) 1.3 H Eosinophils # (Manual) Basophils # (Manual) 0.2 H PT INR D-Dimer ABG pH POC ABG pCO2 POC ABG pO2 ABG pO2 ABG HCO3 ABG O2 Saturation ABG Base Excess ABG Hemoglobin ABG Oxyhemoglobin ABG Potassium ABG Glucose Oxyhemoglobin Carboxyhemoglobin Sodium Potassium Chloride 97.7 L Carbon Dioxide 32 H BUN Creatinine < 0.2 L Glucose 114 H POC Glucose 131 H Calcium Ferritin Total Bilirubin Alkaline Phosphatase Lactate Dehydrogenase Troponin T C-Reactive Protein Total Protein Albumin Prealbumin LDL Cholesterol Direct Arterial Blood Glucose Arterial Blood Ionized Calcium Urine WBC (Auto) 03/18/20 03/18/20 03/18/20 00:21 05:21 11:55 WBC RBC Hgb Hct MCV MCH RDW Plt Count Lymph % (Auto) [place] # (Auto) Seg Neutrophils % Seg Neuts % (Manual) Lymphocytes % (Manual) Monocytes % (Manual) Seg Neutrophils # Seg Neutrophils # Man Lymphocytes # (Manual) Monocytes # (Manual) Eosinophils # (Manual) Basophils # (Manual) PT INR D-Dimer ABG pH POC ABG pCO2 POC ABG pO2 ABG pO2 ABG HCO3 ABG O2 Saturation ABG Base Excess ABG Hemoglobin ABG Oxyhemoglobin ABG Potassium ABG Glucose Oxyhemoglobin Carboxyhemoglobin Sodium Potassium Chloride Carbon Dioxide BUN Creatinine Glucose POC Glucose 124 H 138 H 119 H Calcium Ferritin Total Bilirubin Alkaline Phosphatase Lactate Dehydrogenase Troponin T C-Reactive Protein Total Protein Albumin Prealbumin LDL Cholesterol Direct Arterial Blood Glucose Arterial Blood Ionized Calcium Urine WBC (Auto) 03/18/20 03/18/20 03/19/20 17:03 23:58 05:24 WBC RBC Hgb Hct MCV MCH RDW Plt Count Lymph % (Auto) [place] # (Auto) Seg Neutrophils % Seg Neuts % (Manual) Lymphocytes % (Manual) Monocytes % (Manual) Seg Neutrophils # Seg Neutrophils # Man Lymphocytes # (Manual) Monocytes # (Manual) Eosinophils # (Manual) Basophils # (Manual) PT INR D-Dimer ABG pH POC ABG pCO2 POC ABG pO2 ABG pO2 ABG HCO3 ABG O2 Saturation ABG Base Excess ABG Hemoglobin ABG Oxyhemoglobin ABG Potassium ABG Glucose Oxyhemoglobin Carboxyhemoglobin Sodium Potassium Chloride Carbon Dioxide BUN Creatinine Glucose POC Glucose 128 H 128 H 115 H Calcium Ferritin Total Bilirubin Alkaline Phosphatase Lactate Dehydrogenase Troponin T C-Reactive Protein Total Protein Albumin Prealbumin LDL Cholesterol Direct Arterial Blood Glucose Arterial Blood Ionized Calcium Urine WBC (Auto) 03/19/20 03/19/20 03/19/20 08:05 08:05 11:56 WBC 16.8 H RBC 3.36 L Hgb 9.4 L Hct 28.8 L MCV MCH RDW 17.4 H Plt Count 567 H Lymph % (Auto) 7.8 L [place] # (Auto) 1.2 H Seg Neutrophils % 83.5 H Seg Neuts % (Manual) Lymphocytes % (Manual) Monocytes % (Manual) Seg Neutrophils # 14.1 H Seg Neutrophils # Man Lymphocytes # (Manual) Monocytes # (Manual) Eosinophils # (Manual) Basophils # (Manual) PT INR D-Dimer ABG pH POC ABG pCO2 POC ABG pO2 ABG pO2 ABG HCO3 ABG O2 Saturation ABG Base Excess ABG Hemoglobin ABG Oxyhemoglobin ABG Potassium ABG Glucose Oxyhemoglobin Carboxyhemoglobin Sodium Potassium Chloride Carbon Dioxide 36 H BUN Creatinine < 0.2 L Glucose 135 H POC Glucose 128 H Calcium Ferritin Total Bilirubin Alkaline Phosphatase Lactate Dehydrogenase Troponin T C-Reactive Protein Total Protein Albumin Prealbumin LDL Cholesterol Direct Arterial Blood Glucose Arterial Blood Ionized Calcium Urine WBC (Auto) 03/19/20 03/20/20 23:59 05:12 WBC RBC Hgb Hct MCV MCH RDW Plt Count Lymph % (Auto) [place] # (Auto) Seg Neutrophils % Seg Neuts % (Manual) Lymphocytes % (Manual) Monocytes % (Manual) Seg Neutrophils # Seg Neutrophils # Man Lymphocytes # (Manual) Monocytes # (Manual) Eosinophils # (Manual) Basophils # (Manual) PT INR D-Dimer ABG pH POC ABG pCO2 POC ABG pO2 ABG pO2 ABG HCO3 ABG O2 Saturation ABG Base Excess ABG Hemoglobin ABG Oxyhemoglobin ABG Potassium ABG Glucose Oxyhemoglobin Carboxyhemoglobin Sodium Potassium Chloride Carbon Dioxide BUN Creatinine Glucose POC Glucose 120 H 131 H Calcium Ferritin Total Bilirubin Alkaline Phosphatase Lactate Dehydrogenase Troponin T C-Reactive Protein Total Protein Albumin Prealbumin LDL Cholesterol Direct Arterial Blood Glucose Arterial Blood Ionized Calcium Urine WBC (Auto) Chest x-ray: other (NONE today) Allied health notes reviewed: nursing
[2020-03-20] MEDS ORDERED: SODIUM BICARBONATE 325 MG TAB FEEDTUBE PRN (15:50)
[2020-03-20] MEDS ORDERED: LIPASE 10,500/PROTEASE 25,000/AMYLASE 43,750 (UNITS) DR CAP FEEDTUBE PRN (15:50)
[2020-03-20] MEDS ORDERED: SIMPLE SYRUP 15 ML FEEDTUBE PRN ×2 (15:50)
--- NOTE | 2020-03-20 15:50 | Progress Note ---
Assessment and Plan --Acute hypoxic hypercapnic respiratory failure; Intubated on mechanical ventilation. Etiology secondary to sepsis, ALS, multifocal pneumonia (Covid negative). S/p trach placement 03/07/20 --Dysphagia, status post PEG placement for tube feeding --ALS; Chronic Continue to provide supportive care --Elevated D-dimers; CTA chest, lower extremity venous Doppler both are negative Lovenox for DVT prophylaxis --Bilateral pneumonia; probably community-acquired Continue cefepime and vancomycin ID recommendations appreciated --Sepsis secondary to pneumonia Continue cefepime and vancomycin --Elevated troponin; Serial cardiac enzymes, serial EKGs Echocardiogram, cardiology consult if needed --Hypernatremia Trend sodium Free water via feeding tube --Abdominal distention due to bladder outlet obstruction, resolved CT abdomen showed bladder outlet obstruction, urology consulted s/p drake placement by urology on 03/09 --Hypotension possibly from septic shock and bladder outlet obstruction improved following placing drake --Hypernatremia due to hypovolumia free water with TF and place on 1/2NS --DVT prophylaxis; Lovenox The high probability of a clinically significant, sudden or life threatening deterioration of the [cardiac, renal and respiratory] system(s) required my full and direct attention, intervention and personal management. The aggregate critical care time was [34] minutes. This time is in addition to time spent performing reported procedures but includes the following: [x] Data Review and interpretation [x] Patient assessment and monitoring of vital signs [x] Documentation [x] Medication orders and management Brief history: 59-year-old male patient with significant past medical history of ALS, presented to ED with worsening shortness of breath since the morning [employer]. Patient was on a trilogy machine for breathing 18/11. EMS arrived, patient had O2 sats in the 80s. EMS attempted to place patient on their CPAP machine, however patient did not tolerate. Patient was admitted to the ICU with diagnosis of acute hypoxic respiratory failure and placed on BiPAP. Patient initially tolerated but later deteriorated with respiratory status. CTA chest showed no PE but significant for bilateral pneumonia. Doppler ultrasound also negative for DVT. COVID-19 test ordered. Due to persistent hypoxia, patient was intubated on 02/26/2020 at 1500. Patient now on mechanical ventilation in the ICU s/p trach placement and now unable to wean off from the mechanical venti lation. Patient now status post PEG placement for tube feeding. Patient most likely need long-term placement -[facility]AC versus SNF Daily course: 02/26/2020. Blood cultures are negative x48 hours and Covid testing negative as well. Continue antibiotics per ID recommendations for community-acquired bilateral pneumonia. Cardiology consultation for elevated troponin. Check e chocardiogram. 02/27/2020. Events of yesterday noted with asystole following V. fib arrest. Patient currently on AC mode rate 20, tidal volume 400, FiO2 50% and a PEEP of 6. Follow-up echocardiogram for elevated troponin. Cardiology suspects NSTEMI Type 2 in the setting of acute resp failure. Chest CTA and BLE Dopplers neg. we will discontinue Decadron given the Covid PCR is negative. 02/28/2020. Spoke with the sister Felisa Eli who is the power of [place] regarding advanced directives and she instructed me that she would like to continue with aggressive care at this time. I informed her of the guarded prognosis and high mortality/morbidity and she voiced understanding. Patient currently with AC mode ventilation rate 18, tidal volume 400, FiO2 40% and a PEEP of 6. Continue antibiotics for pneumonia. ID previously consulted. Also consult neurology with regards to ALS. 02/29/2020; patient is intubated and on CPAP patient is alert and oriented. Patient has ALS. Dr. Álvarez spoke with his sister and she wants aggressive care. Continue antibiotics for pneumonia. Neurology consulted for ALS. Prognosis poor 03/01/2020; patient is intubated and on CPAP, patient is alert and oriented. I spoke with his 2 sisters about the management plan. 03/02/2020; patient is intubated and on CPAP. Patient was alert and oriented. I spoke with Dr. mohr and he thinks patient may need mechanical ventilation, likely his disease progressed. Dr. Flowers did debridement this morning. 03/03/2020; patient is intubated and on CPAP, patient was on trilogy and BiPAP at home. Patient has ALS. on spontaneous breathing trial. Patient is alert and oriented but quadriplegic. Patient has severe bilateral pneumonia and is on cefepime and Vanco, ID is following. Patient has sacral decubitus ulcer and debridement was done by Dr. Flowers and there is no osteomyelitis. 03/05. Patient still on broad-spectrum antibiotics. Status post sacral decubitus ulcer debridements-no osteomyelitis. Patient is on AC 25/400/30% PEEP 5. No blood gas results today. 03/06. Plan for tracheostomy by surgery. Still remains intubated. Labs reviewed-sodium 150. Started on free water 200 every 8hr. trend sodium. 03/07: s/p trach placement today, patient placed back on mechanical ventilation with trach. Plan to resume tube feeding with NG tube. Continue to monitor vitals, monitor BMP. 03/08: Patient noted to have distended abdomen with low urinary output. Obtain bladder scan rule out urine retention, UA and urine culture, continue to follow clinically. 03/09: Patient noted to have low blood pressure with SBP as low as 70s. Ordered for 500 mils normal saline bolus. CT abdomen showed bladder outlet obstruction, urology consulted. 03/10: placed on drake by urology o/n, improved urine outpt. cont to monitor BMP. resuded TF - cont free water with TF. wean off from vent as tolerated. 03/11: Vitals stable. cont TF, wean off from vent as tolerated. start on 1/2 NS for hypernatremia - follow BMP 03/12: wean off vent as tolerated, plan for speech eval, cont Tf for now, cont iv fluid 03/13: unable to wean off from vent, unable to do speech therapy eval. will need PEG tube, cont supportive care for now, cont NG tube feeding 03/14: consulted GI for PEg placemnet, cont supportive care. remains on vent at night 03/15: Discussed with GI, plan for PEG tube placement possibly tomorrow. Continue supportive care and wean off from vent as tolerated. Hold Lovenox dose tonight. 03/16: family didnot consent for PEG placement yesterday. I spoke with the daughter today and she is now agreeable for PEG tube. I explained the necessity of the procedure with RN to the patient also and he nodded started on tube feeding, for the procedure. will cont supportive care. planned for PEG tube placement tomorrow. 03/17: s/p PEG placement today, patient tolerated well, cont supportive care 03/18: Started on tube feeding with new PEG tube, continue to wean off vent as tolerated 03/19: cont to monitor with supportive care, wean off vent as tolerated 03/20: Continue to wean off vent as tolerated -but failing weaning trial. Still requiring vent support at night. Currently on PEG tube for tube feed. May need long-term placement. Subjective Date of service: 03/20/20 Principal diagnosis: Ac on Ch Hypercapnic & hypoxemic Resp Failure; Severe Sepsis; Jamar PNA; ALS Interval history: Patient seen and examined Remains on mechanical ventilation with trach tube Discussed with RN at the bedside Vitals reviewed -BP stable Tolerating tube feeding with PEG tube Objective - Exam Narrative Exam: GENERAL: Awake. Intubated with trach tube HEAD: No signs of head trauma. EYES: Pupils are equal. Extraocular motions intact. EARS: Hearing grossly intact. MOUTH: Oropharynx is normal. NECK: No adenopathy, no JVD. CHEST: Coarse breath sounds bilaterally CARDIAC: Regular rate and rhythm. S1 and S2, without murmurs, gallops, or rubs. VASCULAR: No Edema. Peripheral pulses normal and equal in all extremities. ABDOMEN: Soft, non tender and nondistended. Bowel Sounds normal. PEG in place NEUROLOGIC EXAM: Awake, paraplegic SKIN: No obvious lesions - Constitutional Vitals: Vital Signs - 12hr 03/20/20 03/20/20 03/20/20 03:57 04:00 04:16 Temperature Pulse Rate 96 H 102 H 88 Respiratory 13 14 Rate Blood Pressure 121/88 114/83 114/83 O2 Sat by Pulse 99 99 98 Oximetry O2 Sat by Pulse 99 Oximetry [ Assessment] 03/20/20 03/20/20 03/20/20 04:30 04:46 05:00 Temperature Pulse Rate 104 H 106 H 108 H Respiratory 13 14 13 Rate Blood Pressure 122/81 122/81 117/84 O2 Sat by Pulse 97 98 99 Oximetry O2 Sat by Pulse Oximetry [ Assessment] 03/20/20 03/20/20 03/20/20 05:05 05:16 05:30 Temperature Pulse Rate 108 H 97 H 110 H Respiratory 12 12 22 Rate Blood Pressure 117/84 122/84 O2 Sat by Pulse 99 99 99 Oximetry O2 Sat by Pulse Oximetry [ Assessment] 03/20/20 03/20/20 03/20/20 05:46 06:00 06:16 Temperature Pulse Rate 94 H 103 H 95 H Respiratory 14 13 13 Rate Blood Pressure 122/84 121/85 121/85 O2 Sat by Pulse 98 98 98 Oximetry O2 Sat by Pulse Oximetry [ Assessment] 03/20/20 03/20/20 03/20/20 06:30 06:46 07:00 Temperature Pulse Rate 96 H 103 H 105 H Respiratory 13 13 13 Rate Blood Pressure 115/77 115/77 112/82 O2 Sat by Pulse 98 98 98 Oximetry O2 Sat by Pulse Oximetry [ Assessment] 03/20/20 03/20/20 03/20/20 07:16 07:30 07:46 Temperature Pulse Rate 109 H 103 H 109 H Respiratory 14 12 14 Rate Blood Pressure 112/82 109/81 109/81 O2 Sat by Pulse 98 98 98 Oximetry O2 Sat by Pulse Oximetry [ Assessment] 03/20/20 03/20/20 03/20/20 08:00 08:16 08:30 Temperature 98.1 F Pulse Rate 107 H 107 H 116 H Respiratory 17 17 16 Rate Blood Pressure 110/78 110/78 108/82 O2 Sat by Pulse 98 97 98 Oximetry O2 Sat by Pulse Oximetry [ Assessment] 03/20/20 03/20/20 03/20/20 08:33 08:46 09:00 Temperature Pulse Rate 107 H 108 H 105 H Respiratory 16 22 17 Rate Blood Pressure 108/82 108/82 105/74 O2 Sat by Pulse 97 97 99 Oximetry O2 Sat by Pulse Oximetry [ Assessment] 03/20/20 03/20/20 03/20/20 09:16 09:30 09:46 Temperature Pulse Rate 104 H 105 H 106 H Respiratory 19 19 18 Rate Blood Pressure 105/74 114/80 114/80 O2 Sat by Pulse 99 100 99 Oximetry O2 Sat by Pulse Oximetry [ Assessment] 03/20/20 03/20/20 03/20/20 09:49 10:00 10:16 Temperature Pulse Rate 103 H 101 H 100 H Respiratory 22 22 Rate Blood Pressure 114/80 113/85 113/85 O2 Sat by Pulse 99 99 Oximetry O2 Sat by Pulse Oximetry [ Assessment] 03/20/20 03/20/20 03/20/20 10:30 10:46 11:00 Temperature Pulse Rate 94 H 89 91 H Respiratory 21 24 22 Rate Blood Pressure 114/81 114/81 110/81 O2 Sat by Pulse 99 98 99 Oximetry O2 Sat by Pulse Oximetry [ Assessment] 03/20/20 03/20/20 03/20/20 11:16 11:30 11:46 Temperature Pulse Rate 92 H 97 H 91 H Respiratory 18 16 24 Rate Blood Pressure 110/81 119/90 119/90 O2 Sat by Pulse 99 98 98 Oximetry O2 Sat by Pulse Oximetry [ Assessment] 03/20/20 03/20/20 03/20/20 12:00 12:16 12:30 Temperature 98.7 F Pulse Rate 92 H 89 97 H Respiratory 19 17 21 Rate Blood Pressure 121/84 121/84 116/85 O2 Sat by Pulse 98 99 99 Oximetry O2 Sat by Pulse Oximetry [ Assessment] 03/20/20 03/20/20 03/20/20 12:46 12:47 13:00 Temperature Pulse Rate 90 91 H 84 Respiratory 30 H 25 H Rate Blood Pressure 116/85 110/81 116/85 O2 Sat by Pulse 98 99 91 Oximetry O2 Sat by Pulse Oximetry [ Assessment] 03/20/20 03/20/20 03/20/20 13:16 13:30 13:46 Temperature Pulse Rate 97 H 97 H 97 H Respiratory 18 22 18 Rate Blood Pressure 160/92 115/83 115/83 O2 Sat by Pulse 97 99 98 Oximetry O2 Sat by Pulse Oximetry [ Assessment] 03/20/20 03/20/20 14:00 14:16 Temperature Pulse Rate 99 H 107 H Respiratory 22 21 Rate Blood Pressure 114/77 115/83 O2 Sat by Pulse 98 98 Oximetry O2 Sat by Pulse Oximetry [ Assessment] - Labs CBC & Chem 7: 03/19/20 08:05 03/19/20 08:05 Labs: Abnormal lab results 03/19/20 03/20/20 Range/Units 23:59 05:12 POC Glucose 120 H 131 H (70-105) mg/dL HEART Score - HEART Score Troponin: Troponin T 0.034 ng/mL (0.00-0.029) H D 02/24/20 19:35
[2020-03-20] MEDS: ENOXAPARIN 40 MG/0.4 ML INJ SUB-Q SCH (22:05)
[2020-03-20] MEDS: POLYETHYLENE GLYCOL 3350 17 GM POWDER PO SCH (22:06)
[2020-03-21] MEDS ORDERED: LORazepam 2 MG/ML VIAL IV ONE (00:55)
[2020-03-21 08:18] LABS: Hematocrit 29.4 % (35.5-45.6); Hemoglobin 9.4 gm/dl (11.8-15.2); Mean Corpuscular HGB Conc 32 % (32-34); Mean Corpuscular Volume 87 fl (84-94); Platelet Count 518 K/mm3 (140-440); Red Blood Count 3.39 M/mm3 (3.65-5.03); Red Cell Distribution Width 17.6 % (13.2-15.2)
[2020-03-21 08:32] LABS: Blood Urea Nitrogen 14 mg/dL (9-20); Calcium 8.4 mg/dL (8.4-10.2); Hemolysis Index 10
[2020-03-21 08:45] LABS: BUN/Creatinine Ratio 70
[2020-03-21 09:55] LABS: Eosinophils % (Manual) 0 % (0.0-4.3); Myelocytes # (Manual) 0.2 K/mm3; Total Cells Counted 100
[2020-03-21 09:56] LABS: Anisocytosis 1+
[2020-03-21 09:57] LABS: Platelet Estimate Consistent w Auto; Spherocytes 1+
[2020-03-21] MEDS: DOCUSATE SODIUM 100 MG/10 ML ORAL LIQD PO SCH ×2 (10:33→22:33)
[2020-03-21] MEDS: GLYCOPYRROLATE 2 MG TAB PO SCH ×3 (10:33→22:35)
[2020-03-21] MEDS: METOPROLOL TARTRATE 25 MG TAB PO SCH ×2 (10:34→22:34)
[2020-03-21] MEDS: LANSOPRAZOLE 30 MG SOLUTAB FEEDTUBE SCH (10:34)
[2020-03-21] MEDS: TAMSULOSIN 0.4 MG CAP PO SCH (10:34)
[2020-03-21] MEDS: SCOPOLAMINE TRANSDERMAL PATCH 72 HR TD SCH (10:36)
--- NOTE | 2020-03-21 12:57 | Progress Note ---
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 Respiratory Failure Severe Sepsis with Shock Bilateral Pneumonia (Possible aspiration) History of ALS on Trilogy Oropharyngeal Dysphagia PUI-COVID Acute toxic metabolic encephalopathy Elevated D-dimer Elevated troponin possibly type 2 ischemia - continue t-piece trials as tolerated - continue to optimize electrolytes (prn BMP, Mg & PO4) - LTAC evaluation is appropriate - continue care as below otherwise; - repeat CXR prn +/- bronchoscopy for mucus plugging / large volume atelectasis - continue to rest on AC qhs - LTAC evaluation is appropriate - continue Robinul & scopolamine for secretion control - prn electrolytes and optimize K+ & Mg 2+ for best respiratory muscle function - wound care per RN/WCN - continue Scopolamine patch for secretion control - wean supplemental oxygen for target O2 sat's > 92% acutely - bronchodilators with pulmonary hygiene per RT - VAP bundle addressed - continue lung protective strategies - continue bronchodilators with pulmonary hygiene per RT - wean per pulmonary driven protocols otherwise - sedation prn for target RASS 0 to -1 - s/p empiric antiinfectives per ID rec's (Rocephin and Zithromax) - COVID-19 isolation (Airborne & Contact) - empiric Dexamethasone - follow COVID-19 test results (negative) - trend inflammatory markers to aid clinical decision making - enteral nutrition at goal rate as tolerated - Aspiration precautions - accuchecks with glycemic control per SSI (While critically ill target blood glucose of 140-180 mg/dL; avoid hypoglycemia) - avoid nephrotoxins, renally dose all medications - avoid benzodiazepine's, reduce the possibility of delirium - prn analgesia per CPOT score - Maintenance of sleep-wake cycle, avoid delirium - aspiration precautions - G.I. & VTE prophylaxis - PT/OT/ROM exercises - mobility protocols for pressure ulcer prophylaxis - Monitor hemodynamics closely - continue other care per attending / other consultants - discharge planning ongoing concurrently .... Re-evaluate in am & prn CONDITION: CRITICAL PROGNOSIS: GUARDED CODE STATUS: FULL CODE The high probability of a clinically significant, sudden or life-threatening deterioration of the [respiratory, cardiovascular & neurologic] system(s) required my full and direct attention, intervention and personal management. The aggregate critical care time was [31] minutes without overlap. Time includes spent on; [x] Data Review and interpretation [x] Patient assessment and monitoring of vital signs [x] Documentation [x] Medication orders and management Subjective Date of service: 03/21/20 Principal diagnosis: Ac on Ch Hypercapnic & hypoxemic Resp Failure; Severe Sepsis; Jamar PNA; ALS Interval history: Patient is seen today for: Acute on Chronic Hypercapnic & hypoxemic Respiratory Failure; Severe Sepsis with Shock; Bilateral Pneumonia (Possible aspiration); History of ALS on Trilogy; PUI-COVID; Acute toxic metabolic encephalopathy Seen and examined at bedside; 24hour events reviewed; nursing and respiratory care staff consulted; no adverse overnight events reported to me; resting in bed; remains on MVS; still not tolerating t-piece trials; denies N/V/F/C Objective Vital Signs - 12hr 03/21/20 03/21/20 03/21/20 01:00 01:16 01:30 Temperature Pulse Rate 93 H 102 H 94 H Pulse Rate [ From Monitor] Respiratory 17 12 13 Rate Blood Pressure 121/87 121/87 109/75 O2 Sat by Pulse 98 99 99 Oximetry O2 Sat by Pulse Oximetry [ Assessment] 03/21/20 03/21/20 03/21/20 01:46 02:00 02:16 Temperature Pulse Rate 100 H 105 H 102 H Pulse Rate [ From Monitor] Respiratory 13 12 12 Rate Blood Pressure 109/75 97/71 97/71 O2 Sat by Pulse 98 96 99 Oximetry O2 Sat by Pulse Oximetry [ Assessment] 03/21/20 03/21/20 03/21/20 02:30 02:46 03:00 Temperature Pulse Rate 104 H 96 H 98 H Pulse Rate [ From Monitor] Respiratory 13 12 13 Rate Blood Pressure 95/68 95/68 100/70 O2 Sat by Pulse 99 99 99 Oximetry O2 Sat by Pulse Oximetry [ Assessment] 03/21/20 03/21/20 03/21/20 03:16 03:30 03:46 Temperature Pulse Rate 103 H 104 H 103 H Pulse Rate [ From Monitor] Respiratory 12 12 13 Rate Blood Pressure 100/70 99/67 99/67 O2 Sat by Pulse 99 99 99 Oximetry O2 Sat by Pulse Oximetry [ Assessment] 03/21/20 03/21/20 03/21/20 03:47 04:00 04:16 Temperature 98.8 F Pulse Rate 97 H 98 H Pulse Rate [ 98 H From Monitor] Respiratory 12 14 Rate Blood Pressure 100/70 100/70 O2 Sat by Pulse 98 99 Oximetry O2 Sat by Pulse Oximetry [ Assessment] 03/21/20 03/21/20 03/21/20 04:30 04:46 04:54 Temperature Pulse Rate 104 H 106 H 104 H Pulse Rate [ From Monitor] Respiratory 14 12 Rate Blood Pressure 101/68 101/68 101/68 O2 Sat by Pulse 99 99 99 Oximetry O2 Sat by Pulse Oximetry [ Assessment] 03/21/20 03/21/20 03/21/20 04:55 05:00 05:16 Temperature Pulse Rate 105 H 105 H Pulse Rate [ From Monitor] Respiratory 14 13 Rate Blood Pressure 92/64 101/68 O2 Sat by Pulse 99 99 Oximetry O2 Sat by Pulse 99 Oximetry [ Assessment] 03/21/20 03/21/20 03/21/20 05:30 05:46 06:00 Temperature Pulse Rate 98 H 99 H 102 H Pulse Rate [ From Monitor] Respiratory 15 13 13 Rate Blood Pressure 96/65 96/65 101/66 O2 Sat by Pulse 99 99 99 Oximetry O2 Sat by Pulse Oximetry [ Assessment] 03/21/20 03/21/20 03/21/20 06:16 06:30 06:46 Temperature Pulse Rate 112 H 107 H 106 H Pulse Rate [ From Monitor] Respiratory 18 14 14 Rate Blood Pressure 101/66 110/77 110/77 O2 Sat by Pulse 98 98 94 Oximetry O2 Sat by Pulse Oximetry [ Assessment] 03/21/20 03/21/20 03/21/20 07:00 07:16 07:30 Temperature Pulse Rate 110 H 103 H 105 H Pulse Rate [ From Monitor] Respiratory 17 13 12 Rate Blood Pressure 116/79 116/79 109/75 O2 Sat by Pulse 99 97 96 Oximetry O2 Sat by Pulse Oximetry [ Assessment] 03/21/20 03/21/20 03/21/20 07:46 08:00 08:09 Temperature 98.7 F Pulse Rate 103 H 105 H 97 H Pulse Rate [ From Monitor] Respiratory 13 13 Rate Blood Pressure 109/75 110/76 110/76 O2 Sat by Pulse 98 98 66 L Oximetry O2 Sat by Pulse Oximetry [ Assessment] 03/21/20 03/21/20 03/21/20 08:12 08:16 08:30 Temperature Pulse Rate 109 H 110 H Pulse Rate [ From Monitor] Respiratory 26 H 28 H Rate Blood Pressure 110/76 113/76 O2 Sat by Pulse 99 98 Oximetry O2 Sat by Pulse 99 Oximetry [ Assessment] 03/21/20 03/21/20 03/21/20 08:46 09:00 09:16 Temperature Pulse Rate 113 H 117 H 120 H Pulse Rate [ From Monitor] Respiratory 29 H 29 H 31 H Rate Blood Pressure 113/76 113/76 138/92 O2 Sat by Pulse 97 96 97 Oximetry O2 Sat by Pulse Oximetry [ Assessment] 03/21/20 03/21/20 03/21/20 09:30 09:46 10:00 Temperature Pulse Rate 126 H 128 H 128 H Pulse Rate [ From Monitor] Respiratory 30 H 30 H 29 H Rate Blood Pressure 136/92 136/92 135/91 O2 Sat by Pulse 96 97 95 Oximetry O2 Sat by Pulse Oximetry [ Assessment] 03/21/20 03/21/20 03/21/20 10:16 10:30 10:34 Temperature Pulse Rate 125 H 122 H Pulse Rate [ From Monitor] Respiratory 31 H Rate Blood Pressure 135/91 128/91 128/91 O2 Sat by Pulse 96 97 Oximetry O2 Sat by Pulse Oximetry [ Assessment] 03/21/20 03/21/20 03/21/20 10:46 11:00 11:16 Temperature Pulse Rate 123 H 121 H 116 H Pulse Rate [ From Monitor] Respiratory 17 36 H 27 H Rate Blood Pressure 128/91 140/88 128/91 O2 Sat by Pulse 95 96 95 Oximetry O2 Sat by Pulse Oximetry [ Assessment] 03/21/20 03/21/20 03/21/20 11:30 11:46 12:00 Temperature Pulse Rate 109 H 107 H 107 H Pulse Rate [ From Monitor] Respiratory 24 24 25 H Rate Blood Pressure 126/86 126/86 120/78 O2 Sat by Pulse 97 97 98 Oximetry O2 Sat by Pulse Oximetry [ Assessment] 03/21/20 12:16 Temperature Pulse Rate 108 H Pulse Rate [ From Monitor] Respiratory 29 H Rate Blood Pressure 120/78 O2 Sat by Pulse 98 Oximetry O2 Sat by Pulse Oximetry [ Assessment] Constitutional: no acute distress, other (thin middle aged male with normal respiratory effort at rest on MVS) Eyes: non-icteric ENT: oropharynx moist, other (S/P Tracheostomy) Neck: supple, no lymphadenopathy, no JVD Effort: mildly labored Ascultation: Bilateral: clear, diminished breath sounds Percussion: Bilateral: not dull Cardiovascular: regular rate and rhythm, other (S1,S2, no murmurs) Gastrointestinal: normoactive bowel sounds, soft, non-tender, non-distended, other (+ distended but non tender suprapubis) Integumentary: normal, decubitus ulcer (sacral / gluteal) Extremities: no cyanosis, no edema, pulses normal, other (atrophic looking limbs) Neurologic: pupils equal and round, other (motor strength in extremities 1-2/5, awkae, alert, mouths words to make needs known) Psychiatric: depressed CBC and BMP: 03/22/20 06:34 03/22/20 06:34 ABG, PT/INR, D-dimer: ABG ABG pH 7.371 (7.320-7.450) 03/08/20 12:34 POC ABG pCO2 63.1 mmHg (32.0-48.0) H 03/08/20 12:34 ABG pCO2 60.1 mm Hg 03/06/20 04:34 POC ABG pO2 90.5 mmHg (83-108) 03/08/20 12:34 ABG pO2 88.6 mm Hg (80.0-90.0) 03/06/20 04:34 POC ABG HCO3 35.7 03/08/20 12:34 ABG O2 Saturation 97.0 % (95.0-99.0) 03/06/20 04:34 PT/INR, D-dimer PT 15.6 Sec. (12.2-14.9) H 02/24/20 09:19 INR 1.21 (0.87-1.13) H 02/24/20 09:19 D-Dimer 1311.96 ng/mlDDU (0-234) H 02/24/20 09:19 Abnormal lab findings: Abnormal Labs 02/24/20 02/24/20 02/24/20 09:19 09:19 09:19 WBC 20.2 H RBC 5.05 H Hgb Hct MCV MCH RDW 15.3 H Plt Count Lymph % (Auto) [place] # (Auto) Seg Neutrophils % Seg Neuts % (Manual) 86.0 H Lymphocytes % (Manual) 1.0 L Monocytes % (Manual) Basophils % (Manual) Seg Neutrophils # Seg Neutrophils # Man 17.4 H Lymphocytes # (Manual) 0.2 L Monocytes # (Manual) Eosinophils # (Manual) Basophils # (Manual) PT 15.6 H INR 1.21 H D-Dimer 1311.96 H ABG pH POC ABG pCO2 POC ABG pO2 ABG pO2 ABG HCO3 ABG O2 Saturation ABG Base Excess ABG Hemoglobin ABG Oxyhemoglobin ABG Potassium ABG Glucose Oxyhemoglobin Carboxyhemoglobin Sodium 135 L Potassium 3.2 L Chloride 92.2 L Carbon Dioxide BUN 6 L Creatinine < 0.2 L Glucose 124 H POC Glucose Calcium Ferritin Total Bilirubin 2.30 H Alkaline Phosphatase 132 H Lactate Dehydrogenase Troponin T 0.080 H C-Reactive Protein Total Protein Albumin 3.6 L Prealbumin LDL Cholesterol Direct 41 L Arterial Blood Glucose Arterial Blood Ionized Calcium Urine WBC (Auto) 02/24/20 02/24/20 02/24/20 09:19 09:58 10:01 WBC RBC Hgb Hct MCV MCH RDW Plt Count Lymph % (Auto) [place] # (Auto) Seg Neutrophils % Seg Neuts % (Manual) Lymphocytes % (Manual) Monocytes % (Manual) Basophils % (Manual) Seg Neutrophils # Seg Neutrophils # Man Lymphocytes # (Manual) Monocytes # (Manual) Eosinophils # (Manual) Basophils # (Manual) PT INR D-Dimer ABG pH 7.176 L* POC ABG pCO2 POC ABG pO2 ABG pO2 91.2 H ABG HCO3 ABG O2 Saturation ABG Base Excess -4.6 L ABG Hemoglobin ABG Oxyhemoglobin ABG Potassium ABG Glucose Oxyhemoglobin 92.6 L Carboxyhemoglobin Sodium Potassium Chloride Carbon Dioxide BUN Creatinine Glucose POC Glucose Calcium Ferritin 1715.0 H Total Bilirubin Alkaline Phosphatase Lactate Dehydrogenase 303 H Troponin T C-Reactive Protein 26.10 H Total Protein Albumin Prealbumin LDL Cholesterol Direct Arterial Blood Glucose Arterial Blood Ionized Calcium Urine WBC (Auto) 02/24/20 02/24/20 02/24/20 11:52 13:45 19:35 WBC RBC Hgb Hct MCV MCH RDW Plt Count Lymph % (Auto) [place] # (Auto) Seg Neutrophils % Seg Neuts % (Manual) Lymphocytes % (Manual) Monocytes % (Manual) Basophils % (Manual) Seg Neutrophils # Seg Neutrophils # Man Lymphocytes # (Manual) Monocytes # (Manual) Eosinophils # (Manual) Basophils # (Manual) PT INR D-Dimer ABG pH 7.051 L* 7.300 L POC ABG pCO2 POC ABG pO2 ABG pO2 94.7 H 75.1 L ABG HCO3 18.0 L ABG O2 Saturation 93.5 L ABG Base Excess -6.8 L -7.8 L ABG Hemoglobin 13.2 L 11.9 L ABG Oxyhemoglobin ABG Potassium ABG Glucose Oxyhemoglobin 91.0 L 92.7 L Carboxyhemoglobin Sodium Potassium Chloride Carbon Dioxide BUN Creatinine Glucose POC Glucose Calcium Ferritin Total Bilirubin Alkaline Phosphatase Lactate Dehydrogenase Troponin T 0.034 H D C-Reactive Protein Total Protein Albumin Prealbumin LDL Cholesterol Direct Arterial Blood Glucose Arterial Blood Ionized Calcium Urine WBC (Auto) 02/25/20 02/25/20 02/25/20 04:00 04:00 12:26 WBC 22.9 H RBC Hgb Hct MCV 83 L MCH 27 L RDW Plt Count 468 H Lymph % (Auto) [place] # (Auto) Seg Neutrophils % Seg Neuts % (Manual) 89.0 H Lymphocytes % (Manual) 7.0 L Monocytes % (Manual) Basophils % (Manual) Seg Neutrophils # Seg Neutrophils # Man 20.4 H Lymphocytes # (Manual) Monocytes # (Manual) Eosinophils # (Manual) Basophils # (Manual) PT INR D-Dimer ABG pH POC ABG pCO2 POC ABG pO2 ABG pO2 ABG HCO3 ABG O2 Saturation ABG Base Excess ABG Hemoglobin ABG Oxyhemoglobin ABG Potassium 2.6 L ABG Glucose 142 H Oxyhemoglobin Carboxyhemoglobin Sodium Potassium 3.2 L Chloride Carbon Dioxide 18 L BUN Creatinine 0.2 L Glucose 114 H POC Glucose Calcium Ferritin Total Bilirubin Alkaline Phosphatase Lactate Dehydrogenase Troponin T C-Reactive Protein Total Protein Albumin 3.5 L Prealbumin LDL Cholesterol Direct Arterial Blood Glucose 142 H Arterial Blood Ionized Calcium Urine WBC (Auto) 02/26/20 02/26/20 02/26/20 15:58 17:00 23:43 WBC RBC Hgb Hct MCV MCH RDW Plt Count Lymph % (Auto) [place] # (Auto) Seg Neutrophils % Seg Neuts % (Manual) Lymphocytes % (Manual) Monocytes % (Manual) Basophils % (Manual) Seg Neutrophils # Seg Neutrophils # Man Lymphocytes # (Manual) Monocytes # (Manual) Eosinophils # (Manual) Basophils # (Manual) PT INR D-Dimer ABG pH 7.502 H POC ABG pCO2 POC ABG pO2 213.6 H ABG pO2 ABG HCO3 ABG O2 Saturation ABG Base Excess ABG Hemoglobin ABG Oxyhemoglobin 99.2 H ABG Potassium 2.9 L ABG Glucose 160 H Oxyhemoglobin Carboxyhemoglobin 0.4 L Sodium Potassium Chloride Carbon Dioxide BUN Creatinine Glucose POC Glucose 189 H 120 H Calcium Ferritin Total Bilirubin Alkaline Phosphatase Lactate Dehydrogenase Troponin T C-Reactive Protein Total Protein Albumin Prealbumin LDL Cholesterol Direct Arterial Blood Glucose 160 H Arterial Blood Ionized Calcium 4.5 L Urine WBC (Auto) 02/27/20 02/27/20 02/27/20 05:00 07:04 17:45 WBC RBC Hgb Hct MCV MCH RDW Plt Count Lymph % (Auto) [place] # (Auto) Seg Neutrophils % Seg Neuts % (Manual) Lymphocytes % (Manual) Monocytes % (Manual) Basophils % (Manual) Seg Neutrophils # Seg Neutrophils # Man Lymphocytes # (Manual) Monocytes # (Manual) Eosinophils # (Manual) Basophils # (Manual) PT INR D-Dimer ABG pH 7.524 H POC ABG pCO2 POC ABG pO2 ABG pO2 ABG HCO3 ABG O2 Saturation ABG Base Excess ABG Hemoglobin ABG Oxyhemoglobin ABG Potassium 3.0 L ABG Glucose 143 H Oxyhemoglobin Carboxyhemoglobin Sodium Potassium Chloride Carbon Dioxide BUN Creatinine Glucose POC Glucose 154 H 175 H Calcium Ferritin Total Bilirubin Alkaline Phosphatase Lactate Dehydrogenase Troponin T C-Reactive Protein Total Protein Albumin Prealbumin LDL Cholesterol Direct Arterial Blood Glucose 143 H Arterial Blood Ionized Calcium Urine WBC (Auto) 02/27/20 02/28/20 02/28/20 Unknown 00:21 04:15 WBC 18.7 H RBC Hgb Hct MCV MCH RDW Plt Count Lymph % (Auto) 8.7 L [place] # (Auto) 1.2 H Seg Neutrophils % 84.6 H Seg Neuts % (Manual) Lymphocytes % (Manual) Monocytes % (Manual) Basophils % (Manual) Seg Neutrophils # 15.9 H Seg Neutrophils # Man Lymphocytes # (Manual) Monocytes # (Manual) Eosinophils # (Manual) Basophils # (Manual) PT INR D-Dimer ABG pH POC ABG pCO2 POC ABG pO2 ABG pO2 ABG HCO3 ABG O2 Saturation ABG Base Excess ABG Hemoglobin ABG Oxyhemoglobin ABG Potassium ABG Glucose Oxyhemoglobin Carboxyhemoglobin Sodium Potassium 2.9 L* Chloride Carbon Dioxide 33 H D BUN Creatinine < 0.2 L Glucose 157 H POC Glucose 134 H Calcium Ferritin Total Bilirubin Alkaline Phosphatase Lactate Dehydrogenase Troponin T C-Reactive Protein Total Protein Albumin Prealbumin LDL Cholesterol Direct Arterial Blood Glucose Arterial Blood Ionized Calcium Urine WBC (Auto) 02/28/20 02/28/20 02/28/20 04:15 05:16 05:39 WBC RBC Hgb Hct MCV MCH RDW Plt Count Lymph % (Auto) [place] # (Auto) Seg Neutrophils % Seg Neuts % (Manual) Lymphocytes % (Manual) Monocytes % (Manual) Basophils % (Manual) Seg Neutrophils # Seg Neutrophils # Man Lymphocytes # (Manual) Monocytes # (Manual) Eosinophils # (Manual) Basophils # (Manual) PT INR D-Dimer ABG pH POC ABG pCO2 POC ABG pO2 ABG pO2 142.9 H ABG HCO3 34.1 H ABG O2 Saturation ABG Base Excess 8.3 H ABG Hemoglobin ABG Oxyhemoglobin ABG Potassium ABG Glucose Oxyhemoglobin Carboxyhemoglobin Sodium 151 H Potassium Chloride Carbon Dioxide 32 H BUN Creatinine 0.2 L Glucose 167 H POC Glucose 138 H Calcium Ferritin Total Bilirubin Alkaline Phosphatase Lactate Dehydrogenase Troponin T C-Reactive Protein Total Protein Albumin Prealbumin LDL Cholesterol Direct Arterial Blood Glucose Arterial Blood Ionized Calcium Urine WBC (Auto) 02/28/20 02/28/20 02/28/20 11:05 11:33 12:54 WBC RBC Hgb Hct MCV MCH RDW Plt Count Lymph % (Auto) [place] # (Auto) Seg Neutrophils % Seg Neuts % (Manual) Lymphocytes % (Manual) Monocytes % (Manual) Basophils % (Manual) Seg Neutrophils # Seg Neutrophils # Man Lymphocytes # (Manual) Monocytes # (Manual) Eosinophils # (Manual) Basophils # (Manual) PT INR D-Dimer ABG pH POC ABG pCO2 POC ABG pO2 ABG pO2 ABG HCO3 ABG O2 Saturation ABG Base Excess ABG Hemoglobin ABG Oxyhemoglobin ABG Potassium ABG Glucose Oxyhemoglobin Carboxyhemoglobin Sodium Potassium Chloride Carbon Dioxide BUN Creatinine Glucose POC Glucose 160 H Calcium Ferritin Total Bilirubin Alkaline Phosphatase Lactate Dehydrogenase Troponin T C-Reactive Protein 4.70 H Total Protein Albumin Prealbumin 0.090 L LDL Cholesterol Direct Arterial Blood Glucose Arterial Blood Ionized Calcium Urine WBC (Auto) 02/28/20 02/29/20 02/29/20 17:34 00:44 04:05 WBC 19.6 H RBC Hgb Hct MCV MCH 27 L RDW 15.4 H Plt Count Lymph % (Auto) [place] # (Auto) Seg Neutrophils % Seg Neuts % (Manual) 86.0 H Lymphocytes % (Manual) 7.0 L Monocytes % (Manual) Basophils % (Manual) Seg Neutrophils # Seg Neutrophils # Man 16.9 H Lymphocytes # (Manual) Monocytes # (Manual) 1.2 H Eosinophils # (Manual) Basophils # (Manual) PT INR D-Dimer ABG pH POC ABG pCO2 POC ABG pO2 ABG pO2 ABG HCO3 ABG O2 Saturation ABG Base Excess ABG Hemoglobin ABG Oxyhemoglobin ABG Potassium ABG Glucose Oxyhemoglobin Carboxyhemoglobin Sodium Potassium Chloride Carbon Dioxide BUN Creatinine Glucose POC Glucose 136 H 156 H Calcium Ferritin Total Bilirubin Alkaline Phosphatase Lactate Dehydrogenase Troponin T C-Reactive Protein Total Protein Albumin Prealbumin LDL Cholesterol Direct Arterial Blood Glucose Arterial Blood Ionized Calcium Urine WBC (Auto) 02/29/20 02/29/20 02/29/20 04:05 05:14 05:33 WBC RBC Hgb Hct MCV MCH RDW Plt Count Lymph % (Auto) [place] # (Auto) Seg Neutrophils % Seg Neuts % (Manual) Lymphocytes % (Manual) Monocytes % (Manual) Basophils % (Manual) Seg Neutrophils # Seg Neutrophils # Man Lymphocytes # (Manual) Monocytes # (Manual) Eosinophils # (Manual) Basophils # (Manual) PT INR D-Dimer ABG pH POC ABG pCO2 54.3 H POC ABG pO2 124.8 H ABG pO2 ABG HCO3 ABG O2 Saturation ABG Base Excess ABG Hemoglobin ABG Oxyhemoglobin ABG Potassium ABG Glucose 185 H Oxyhemoglobin Carboxyhemoglobin Sodium 148 H Potassium Chloride Carbon Dioxide 33 H BUN Creatinine < 0.2 L Glucose 173 H POC Glucose 152 H Calcium Ferritin Total Bilirubin Alkaline Phosphatase Lactate Dehydrogenase Troponin T C-Reactive Protein Total Protein Albumin Prealbumin LDL Cholesterol Direct Arterial Blood Glucose 185 H Arterial Blood Ionized Calcium Urine WBC (Auto) 03/01/20 03/01/20 03/01/20 00:00 03:45 04:33 WBC 23.1 H RBC Hgb Hct MCV MCH 27 L RDW 15.3 H Plt Count Lymph % (Auto) [place] # (Auto) Seg Neutrophils % Seg Neuts % (Manual) 92.0 H Lymphocytes % (Manual) 6.0 L Monocytes % (Manual) Basophils % (Manual) Seg Neutrophils # Seg Neutrophils # Man 21.3 H Lymphocytes # (Manual) Monocytes # (Manual) Eosinophils # (Manual) 0.5 H Basophils # (Manual) PT INR D-Dimer ABG pH 7.492 H POC ABG pCO2 POC ABG pO2 ABG pO2 157.1 H ABG HCO3 32.3 H ABG O2 Saturation ABG Base Excess 8.1 H ABG Hemoglobin 13.2 L ABG Oxyhemoglobin ABG Potassium ABG Glucose Oxyhemoglobin Carboxyhemoglobin Sodium Potassium Chloride Carbon Dioxide BUN Creatinine Glucose POC Glucose 109 H Calcium Ferritin Total Bilirubin Alkaline Phosphatase Lactate Dehydrogenase Troponin T C-Reactive Protein Total Protein Albumin Prealbumin LDL Cholesterol Direct Arterial Blood Glucose Arterial Blood Ionized Calcium Urine WBC (Auto) 03/01/20 03/01/20 03/01/20 04:33 05:29 12:32 WBC RBC Hgb Hct MCV MCH RDW Plt Count Lymph % (Auto) [place] # (Auto) Seg Neutrophils % Seg Neuts % (Manual) Lymphocytes % (Manual) Monocytes % (Manual) Basophils % (Manual) Seg Neutrophils # Seg Neutrophils # Man Lymphocytes # (Manual) Monocytes # (Manual) Eosinophils # (Manual) Basophils # (Manual) PT INR D-Dimer ABG pH POC ABG pCO2 POC ABG pO2 ABG pO2 ABG HCO3 ABG O2 Saturation ABG Base Excess ABG Hemoglobin ABG Oxyhemoglobin ABG Potassium ABG Glucose Oxyhemoglobin Carboxyhemoglobin Sodium 146 H Potassium Chloride Carbon Dioxide 32 H BUN Creatinine < 0.2 L Glucose 120 H POC Glucose 120 H 128 H Calcium Ferritin Total Bilirubin Alkaline Phosphatase Lactate Dehydrogenase Troponin T C-Reactive Protein Total Protein Albumin Prealbumin LDL Cholesterol Direct Arterial Blood Glucose Arterial Blood Ionized Calcium Urine WBC (Auto) 03/01/20 03/01/20 03/02/20 17:38 23:46 06:13 WBC RBC Hgb Hct MCV MCH RDW Plt Count Lymph % (Auto) [place] # (Auto) Seg Neutrophils % Seg Neuts % (Manual) Lymphocytes % (Manual) Monocytes % (Manual) Basophils % (Manual) Seg Neutrophils # Seg Neutrophils # Man Lymphocytes # (Manual) Monocytes # (Manual) Eosinophils # (Manual) Basophils # (Manual) PT INR D-Dimer ABG pH POC ABG pCO2 POC ABG pO2 ABG pO2 ABG HCO3 ABG O2 Saturation ABG Base Excess ABG Hemoglobin ABG Oxyhemoglobin ABG Potassium ABG Glucose Oxyhemoglobin Carboxyhemoglobin Sodium Potassium Chloride Carbon Dioxide BUN Creatinine Glucose POC Glucose 114 H 121 H 120 H Calcium Ferritin Total Bilirubin Alkaline Phosphatase Lactate Dehydrogenase Troponin T C-Reactive Protein Total Protein Albumin Prealbumin LDL Cholesterol Direct Arterial Blood Glucose Arterial Blood Ionized Calcium Urine WBC (Auto) 03/02/20 03/02/20 03/03/20 09:47 09:47 10:21 WBC 23.6 H RBC Hgb Hct MCV MCH RDW 15.3 H Plt Count 494 H Lymph % (Auto) [place] # (Auto) Seg Neutrophils % Seg Neuts % (Manual) 85.0 H Lymphocytes % (Manual) 6.0 L Monocytes % (Manual) Basophils % (Manual) Seg Neutrophils # Seg Neutrophils # Man 20.1 H Lymphocytes # (Manual) Monocytes # (Manual) 1.7 H Eosinophils # (Manual) Basophils # (Manual) PT INR D-Dimer ABG pH POC ABG pCO2 POC ABG pO2 ABG pO2 ABG HCO3 ABG O2 Saturation ABG Base Excess ABG Hemoglobin ABG Oxyhemoglobin ABG Potassium 3.3 L ABG Glucose 158 H Oxyhemoglobin Carboxyhemoglobin Sodium Potassium Chloride Carbon Dioxide BUN Creatinine < 0.2 L Glucose 177 H POC Glucose Calcium Ferritin Total Bilirubin Alkaline Phosphatase Lactate Dehydrogenase Troponin T C-Reactive Protein Total Protein Albumin Prealbumin LDL Cholesterol Direct Arterial Blood Glucose 158 H Arterial Blood Ionized Calcium Urine WBC (Auto) 03/03/20 03/04/20 03/04/20 21:30 00:00 12:23 WBC RBC Hgb Hct MCV MCH RDW Plt Count Lymph % (Auto) [place] # (Auto) Seg Neutrophils % Seg Neuts % (Manual) Lymphocytes % (Manual) Monocytes % (Manual) Basophils % (Manual) Seg Neutrophils # Seg Neutrophils # Man Lymphocytes # (Manual) Monocytes # (Manual) Eosinophils # (Manual) Basophils # (Manual) PT INR D-Dimer ABG pH 7.328 L POC ABG pCO2 POC ABG pO2 ABG pO2 68.4 L ABG HCO3 35.0 H ABG O2 Saturation 93.9 L ABG Base Excess 6.8 H ABG Hemoglobin 12.7 L ABG Oxyhemoglobin ABG Potassium ABG Glucose Oxyhemoglobin 91.9 L Carboxyhemoglobin Sodium Potassium Chloride Carbon Dioxide BUN Creatinine Glucose POC Glucose 187 H 163 H Calcium Ferritin Total Bilirubin Alkaline Phosphatase Lactate Dehydrogenase Troponin T C-Reactive Protein Total Protein Albumin Prealbumin LDL Cholesterol Direct Arterial Blood Glucose Arterial Blood Ionized Calcium Urine WBC (Auto) 11/07/20 11/07/20 11/08/20 18:15 21:30 06:02 WBC RBC Hgb Hct MCV MCH RDW Plt Count Lymph % (Auto) [place] # (Auto) Seg Neutrophils % Seg Neuts % (Manual) Lymphocytes % (Manual) Monocytes % (Manual) Basophils % (Manual) Seg Neutrophils # Seg Neutrophils # Man Lymphocytes # (Manual) Monocytes # (Manual) Eosinophils # (Manual) Basophils # (Manual) PT INR D-Dimer ABG pH 7.297 L POC ABG pCO2 POC ABG pO2 ABG pO2 ABG HCO3 41.0 H ABG O2 Saturation ABG Base Excess 11.0 H ABG Hemoglobin 13.1 L ABG Oxyhemoglobin ABG Potassium ABG Glucose Oxyhemoglobin 94.5 L Carboxyhemoglobin Sodium Potassium Chloride Carbon Dioxide BUN Creatinine Glucose POC Glucose 192 H 127 H Calcium Ferritin Total Bilirubin Alkaline Phosphatase Lactate Dehydrogenase Troponin T C-Reactive Protein Total Protein Albumin Prealbumin LDL Cholesterol Direct Arterial Blood Glucose Arterial Blood Ionized Calcium Urine WBC (Auto) 03/05/20 03/05/20 03/06/20 12:09 16:42 00:24 WBC RBC Hgb Hct MCV MCH RDW Plt Count Lymph % (Auto) [place] # (Auto) Seg Neutrophils % Seg Neuts % (Manual) Lymphocytes % (Manual) Monocytes % (Manual) Basophils % (Manual) Seg Neutrophils # Seg Neutrophils # Man Lymphocytes # (Manual) Monocytes # (Manual) Eosinophils # (Manual) Basophils # (Manual) PT INR D-Dimer ABG pH POC ABG pCO2 POC ABG pO2 ABG pO2 ABG HCO3 ABG O2 Saturation ABG Base Excess ABG Hemoglobin ABG Oxyhemoglobin ABG Potassium ABG Glucose Oxyhemoglobin Carboxyhemoglobin Sodium Potassium Chloride Carbon Dioxide BUN Creatinine Glucose POC Glucose 147 H 114 H 134 H Calcium Ferritin Total Bilirubin Alkaline Phosphatase Lactate Dehydrogenase Troponin T C-Reactive Protein Total Protein Albumin Prealbumin LDL Cholesterol Direct Arterial Blood Glucose Arterial Blood Ionized Calcium Urine WBC (Auto) 03/06/20 03/06/20 03/06/20 04:34 05:53 06:08 WBC 25.4 H RBC Hgb 10.5 L Hct 32.7 L MCV MCH 27 L RDW 15.3 H Plt Count 634 H Lymph % (Auto) [place] # (Auto) Seg Neutrophils % Seg Neuts % (Manual) 88.0 H Lymphocytes % (Manual) 2.0 L Monocytes % (Manual) 8.0 H Basophils % (Manual) Seg Neutrophils # Seg Neutrophils # Man 22.4 H Lymphocytes # (Manual) 0.5 L Monocytes # (Manual) 2.0 H Eosinophils # (Manual) Basophils # (Manual) PT INR D-Dimer ABG pH POC ABG pCO2 POC ABG pO2 ABG pO2 ABG HCO3 37.9 H ABG O2 Saturation ABG Base Excess 11.4 H ABG Hemoglobin 10.6 L ABG Oxyhemoglobin ABG Potassium ABG Glucose Oxyhemoglobin 94.7 L Carboxyhemoglobin Sodium Potassium Chloride Carbon Dioxide BUN Creatinine Glucose POC Glucose 135 H Calcium Ferritin Total Bilirubin Alkaline Phosphatase Lactate Dehydrogenase Troponin T C-Reactive Protein Total Protein Albumin Prealbumin LDL Cholesterol Direct Arterial Blood Glucose Arterial Blood Ionized Calcium Urine WBC (Auto) 03/06/20 03/06/20 03/06/20 06:08 12:19 19:10 WBC RBC Hgb Hct MCV MCH RDW Plt Count Lymph % (Auto) [place] # (Auto) Seg Neutrophils % Seg Neuts % (Manual) Lymphocytes % (Manual) Monocytes % (Manual) Basophils % (Manual) Seg Neutrophils # Seg Neutrophils # Man Lymphocytes # (Manual) Monocytes # (Manual) Eosinophils # (Manual) Basophils # (Manual) PT INR D-Dimer ABG pH POC ABG pCO2 POC ABG pO2 ABG pO2 ABG HCO3 ABG O2 Saturation ABG Base Excess ABG Hemoglobin ABG Oxyhemoglobin ABG Potassium ABG Glucose Oxyhemoglobin Carboxyhemoglobin Sodium 150 H D Potassium Chloride Carbon Dioxide 39 H D BUN 23 H Creatinine < 0.2 L Glucose 144 H POC Glucose 169 H 152 H Calcium Ferritin Total Bilirubin Alkaline Phosphatase Lactate Dehydrogenase Troponin T C-Reactive Protein Total Protein Albumin 3.3 L Prealbumin LDL Cholesterol Direct Arterial Blood Glucose Arterial Blood Ionized Calcium Urine WBC (Auto) 03/06/20 03/07/20 03/07/20 23:58 04:25 04:25 WBC 22.1 H RBC Hgb 10.9 L Hct 32.9 L MCV MCH RDW 15.5 H Plt Count 739 H Lymph % (Auto) 7.8 L [place] # (Auto) 1.3 H Seg Neutrophils % 85.5 H Seg Neuts % (Manual) Lymphocytes % (Manual) Monocytes % (Manual) Basophils % (Manual) Seg Neutrophils # 18.9 H Seg Neutrophils # Man Lymphocytes # (Manual) Monocytes # (Manual) Eosinophils # (Manual) Basophils # (Manual) PT INR D-Dimer ABG pH POC ABG pCO2 POC ABG pO2 ABG pO2 ABG HCO3 ABG O2 Saturation ABG Base Excess ABG Hemoglobin ABG Oxyhemoglobin ABG Potassium ABG Glucose Oxyhemoglobin Carboxyhemoglobin Sodium 146 H Potassium Chloride Carbon Dioxide 37 H BUN Creatinine < 0.2 L Glucose 118 H POC Glucose 111 H Calcium Ferritin Total Bilirubin Alkaline Phosphatase Lactate Dehydrogenase Troponin T C-Reactive Protein Total Protein Albumin 3.7 L Prealbumin LDL Cholesterol Direct Arterial Blood Glucose Arterial Blood Ionized Calcium Urine WBC (Auto) 03/07/20 03/07/20 03/07/20 05:20 17:45 23:32 WBC RBC Hgb Hct MCV MCH RDW Plt Count Lymph % (Auto) [place] # (Auto) Seg Neutrophils % Seg Neuts % (Manual) Lymphocytes % (Manual) Monocytes % (Manual) Basophils % (Manual) Seg Neutrophils # Seg Neutrophils # Man Lymphocytes # (Manual) Monocytes # (Manual) Eosinophils # (Manual) Basophils # (Manual) PT INR D-Dimer ABG pH POC ABG pCO2 POC ABG pO2 ABG pO2 ABG HCO3 ABG O2 Saturation ABG Base Excess ABG Hemoglobin ABG Oxyhemoglobin ABG Potassium ABG Glucose Oxyhemoglobin Carboxyhemoglobin Sodium Potassium Chloride Carbon Dioxide BUN Creatinine Glucose POC Glucose 113 H 124 H 210 H Calcium Ferritin Total Bilirubin Alkaline Phosphatase Lactate Dehydrogenase Troponin T C-Reactive Protein Total Protein Albumin Prealbumin LDL Cholesterol Direct Arterial Blood Glucose Arterial Blood Ionized Calcium Urine WBC (Auto) 03/08/20 03/08/20 03/08/20 05:35 06:43 06:43 WBC 28.9 H RBC 3.53 L Hgb 9.7 L Hct 30.3 L MCV MCH RDW 15.6 H Plt Count 578 H Lymph % (Auto) [place] # (Auto) Seg Neutrophils % Seg Neuts % (Manual) 93.0 H Lymphocytes % (Manual) 4.0 L Monocytes % (Manual) Basophils % (Manual) Seg Neutrophils # Seg Neutrophils # Man 26.9 H Lymphocytes # (Manual) Monocytes # (Manual) Eosinophils # (Manual) Basophils # (Manual) PT INR D-Dimer ABG pH POC ABG pCO2 POC ABG pO2 ABG pO2 ABG HCO3 ABG O2 Saturation ABG Base Excess ABG Hemoglobin ABG Oxyhemoglobin ABG Potassium ABG Glucose Oxyhemoglobin Carboxyhemoglobin Sodium 146 H Potassium Chloride Carbon Dioxide 35 H BUN 34 H Creatinine 0.3 L D Glucose 125 H POC Glucose 147 H Calcium Ferritin Total Bilirubin Alkaline Phosphatase Lactate Dehydrogenase Troponin T C-Reactive Protein Total Protein 5.9 L Albumin 3.2 L Prealbumin LDL Cholesterol Direct Arterial Blood Glucose Arterial Blood Ionized Calcium Urine WBC (Auto) 03/08/20 03/08/20 03/08/20 08:57 11:14 12:34 WBC RBC Hgb Hct MCV MCH RDW Plt Count Lymph % (Auto) [place] # (Auto) Seg Neutrophils % Seg Neuts % (Manual) Lymphocytes % (Manual) Monocytes % (Manual) Basophils % (Manual) Seg Neutrophils # Seg Neutrophils # Man Lymphocytes # (Manual) Monocytes # (Manual) Eosinophils # (Manual) Basophils # (Manual) PT INR D-Dimer ABG pH POC ABG pCO2 63.1 H POC ABG pO2 ABG pO2 ABG HCO3 ABG O2 Saturation ABG Base Excess ABG Hemoglobin 10.9 L ABG Oxyhemoglobin ABG Potassium ABG Glucose 176 H Oxyhemoglobin Carboxyhemoglobin Sodium Potassium Chloride Carbon Dioxide BUN Creatinine Glucose POC Glucose 171 H Calcium Ferritin Total Bilirubin Alkaline Phosphatase Lactate Dehydrogenase Troponin T C-Reactive Protein Total Protein Albumin Prealbumin LDL Cholesterol Direct Arterial Blood Glucose 176 H Arterial Blood Ionized Calcium 4.5 L Urine WBC (Auto) 10.0 H 03/08/20 03/08/20 03/09/20 18:02 23:43 05:49 WBC RBC Hgb Hct MCV MCH RDW Plt Count Lymph % (Auto) [place] # (Auto) Seg Neutrophils % Seg Neuts % (Manual) Lymphocytes % (Manual) Monocytes % (Manual) Basophils % (Manual) Seg Neutrophils # Seg Neutrophils # Man Lymphocytes # (Manual) Monocytes # (Manual) Eosinophils # (Manual) Basophils # (Manual) PT INR D-Dimer ABG pH POC ABG pCO2 POC ABG pO2 ABG pO2 ABG HCO3 ABG O2 Saturation ABG Base Excess ABG Hemoglobin ABG Oxyhemoglobin ABG Potassium ABG Glucose Oxyhemoglobin Carboxyhemoglobin Sodium Potassium Chloride Carbon Dioxide BUN Creatinine Glucose POC Glucose 157 H 134 H 163 H Calcium Ferritin Total Bilirubin Alkaline Phosphatase Lactate Dehydrogenase Troponin T C-Reactive Protein Total Protein Albumin Prealbumin LDL Cholesterol Direct Arterial Blood Glucose Arterial Blood Ionized Calcium Urine WBC (Auto) 03/09/20 03/09/20 03/09/20 08:35 08:35 12:11 WBC 23.4 H RBC 3.36 L Hgb 9.3 L Hct 28.8 L MCV MCH RDW 15.9 H Plt Count 521 H Lymph % (Auto) [place] # (Auto) Seg Neutrophils % Seg Neuts % (Manual) 87.0 H Lymphocytes % (Manual) 4.0 L Monocytes % (Manual) 9.0 H Basophils % (Manual) Seg Neutrophils # Seg Neutrophils # Man 20.4 H Lymphocytes # (Manual) 0.9 L Monocytes # (Manual) 2.1 H Eosinophils # (Manual) Basophils # (Manual) PT INR D-Dimer ABG pH POC ABG pCO2 POC ABG pO2 ABG pO2 ABG HCO3 ABG O2 Saturation ABG Base Excess ABG Hemoglobin ABG Oxyhemoglobin ABG Potassium ABG Glucose Oxyhemoglobin Carboxyhemoglobin Sodium 147 H Potassium Chloride Carbon Dioxide 37 H BUN 63 H Creatinine Glucose 154 H POC Glucose 128 H Calcium Ferritin Total Bilirubin Alkaline Phosphatase Lactate Dehydrogenase Troponin T C-Reactive Protein Total Protein Albumin Prealbumin LDL Cholesterol Direct Arterial Blood Glucose Arterial Blood Ionized Calcium Urine WBC (Auto) 03/09/20 03/10/20 03/10/20 17:51 00:25 05:41 WBC RBC Hgb Hct MCV MCH RDW Plt Count Lymph % (Auto) [place] # (Auto) Seg Neutrophils % Seg Neuts % (Manual) Lymphocytes % (Manual) Monocytes % (Manual) Basophils % (Manual) Seg Neutrophils # Seg Neutrophils # Man Lymphocytes # (Manual) Monocytes # (Manual) Eosinophils # (Manual) Basophils # (Manual) PT INR D-Dimer ABG pH POC ABG pCO2 POC ABG pO2 ABG pO2 ABG HCO3 ABG O2 Saturation ABG Base Excess ABG Hemoglobin ABG Oxyhemoglobin ABG Potassium ABG Glucose Oxyhemoglobin Carboxyhemoglobin Sodium Potassium Chloride Carbon Dioxide BUN Creatinine Glucose POC Glucose 127 H 128 H 153 H Calcium Ferritin Total Bilirubin Alkaline Phosphatase Lactate Dehydrogenase Troponin T C-Reactive Protein Total Protein Albumin Prealbumin LDL Cholesterol Direct Arterial Blood Glucose Arterial Blood Ionized Calcium Urine WBC (Auto) 03/10/20 03/10/20 03/10/20 06:14 06:14 12:02 WBC 18.3 H RBC 3.45 L Hgb 9.5 L Hct 29.5 L MCV MCH RDW 16.1 H Plt Count 494 H Lymph % (Auto) [place] # (Auto) Seg Neutrophils % Seg Neuts % (Manual) 95.0 H Lymphocytes % (Manual) 1.0 L Monocytes % (Manual) Basophils % (Manual) Seg Neutrophils # Seg Neutrophils # Man 17.4 H Lymphocytes # (Manual) 0.2 L Monocytes # (Manual) Eosinophils # (Manual) Basophils # (Manual) PT INR D-Dimer ABG pH POC ABG pCO2 POC ABG pO2 ABG pO2 ABG HCO3 ABG O2 Saturation ABG Base Excess ABG Hemoglobin ABG Oxyhemoglobin ABG Potassium ABG Glucose Oxyhemoglobin Carboxyhemoglobin Sodium 149 H Potassium Chloride Carbon Dioxide 35 H BUN 34 H Creatinine 0.2 L D Glucose 177 H POC Glucose 151 H Calcium Ferritin Total Bilirubin Alkaline Phosphatase Lactate Dehydrogenase Troponin T C-Reactive Protein Total Protein Albumin Prealbumin LDL Cholesterol Direct Arterial Blood Glucose Arterial Blood Ionized Calcium Urine WBC (Auto) 03/10/20 03/10/20 03/11/20 17:41 23:53 05:02 WBC RBC Hgb Hct MCV MCH RDW Plt Count Lymph % (Auto) [place] # (Auto) Seg Neutrophils % Seg Neuts % (Manual) Lymphocytes % (Manual) Monocytes % (Manual) Basophils % (Manual) Seg Neutrophils # Seg Neutrophils # Man Lymphocytes # (Manual) Monocytes # (Manual) Eosinophils # (Manual) Basophils # (Manual) PT INR D-Dimer ABG pH POC ABG pCO2 POC ABG pO2 ABG pO2 ABG HCO3 ABG O2 Saturation ABG Base Excess ABG Hemoglobin ABG Oxyhemoglobin ABG Potassium ABG Glucose Oxyhemoglobin Carboxyhemoglobin Sodium Potassium Chloride Carbon Dioxide BUN Creatinine Glucose POC Glucose 168 H 142 H 146 H Calcium Ferritin Total Bilirubin Alkaline Phosphatase Lactate Dehydrogenase Troponin T C-Reactive Protein Total Protein Albumin Prealbumin LDL Cholesterol Direct Arterial Blood Glucose Arterial Blood Ionized Calcium Urine WBC (Auto) 03/11/20 03/11/20 03/11/20 11:30 14:01 14:01 WBC 19.7 H RBC 3.04 L Hgb 8.7 L Hct 25.8 L MCV MCH RDW 15.6 H Plt Count Lymph % (Auto) [place] # (Auto) Seg Neutrophils % Seg Neuts % (Manual) Lymphocytes % (Manual) Monocytes % (Manual) Basophils % (Manual) Seg Neutrophils # Seg Neutrophils # Man Lymphocytes # (Manual) Monocytes # (Manual) Eosinophils # (Manual) Basophils # (Manual) PT INR D-Dimer ABG pH POC ABG pCO2 POC ABG pO2 ABG pO2 ABG HCO3 ABG O2 Saturation ABG Base Excess ABG Hemoglobin ABG Oxyhemoglobin ABG Potassium ABG Glucose Oxyhemoglobin Carboxyhemoglobin Sodium 151 H Potassium Chloride Carbon Dioxide 37 H BUN Creatinine < 0.2 L Glucose 171 H POC Glucose 248 H Calcium Ferritin Total Bilirubin Alkaline Phosphatase Lactate Dehydrogenase Troponin T C-Reactive Protein Total Protein Albumin Prealbumin LDL Cholesterol Direct Arterial Blood Glucose Arterial Blood Ionized Calcium Urine WBC (Auto) 03/11/20 03/11/20 03/12/20 17:09 23:52 04:39 WBC 19.9 H RBC 3.16 L Hgb 8.9 L Hct 27.5 L MCV MCH RDW 15.7 H Plt Count Lymph % (Auto) 6.8 L [place] # (Auto) 1.2 H Seg Neutrophils % 86.0 H Seg Neuts % (Manual) Lymphocytes % (Manual) Monocytes % (Manual) Basophils % (Manual) Seg Neutrophils # 17.1 H Seg Neutrophils # Man Lymphocytes # (Manual) Monocytes # (Manual) Eosinophils # (Manual) Basophils # (Manual) PT INR D-Dimer ABG pH POC ABG pCO2 POC ABG pO2 ABG pO2 ABG HCO3 ABG O2 Saturation ABG Base Excess ABG Hemoglobin ABG Oxyhemoglobin ABG Potassium ABG Glucose Oxyhemoglobin Carboxyhemoglobin Sodium Potassium Chloride Carbon Dioxide BUN Creatinine Glucose POC Glucose 124 H 131 H Calcium Ferritin Total Bilirubin Alkaline Phosphatase Lactate Dehydrogenase Troponin T C-Reactive Protein Total Protein Albumin Prealbumin LDL Cholesterol Direct Arterial Blood Glucose Arterial Blood Ionized Calcium Urine WBC (Auto) 03/12/20 03/12/20 03/12/20 04:39 05:28 11:34 WBC RBC Hgb Hct MCV MCH RDW Plt Count Lymph % (Auto) [place] # (Auto) Seg Neutrophils % Seg Neuts % (Manual) Lymphocytes % (Manual) Monocytes % (Manual) Basophils % (Manual) Seg Neutrophils # Seg Neutrophils # Man Lymphocytes # (Manual) Monocytes # (Manual) Eosinophils # (Manual) Basophils # (Manual) PT INR D-Dimer ABG pH POC ABG pCO2 POC ABG pO2 ABG pO2 ABG HCO3 ABG O2 Saturation ABG Base Excess ABG Hemoglobin ABG Oxyhemoglobin ABG Potassium ABG Glucose Oxyhemoglobin Carboxyhemoglobin Sodium 147 H Potassium Chloride Carbon Dioxide 40 H BUN Creatinine < 0.2 L Glucose 175 H POC Glucose 167 H 144 H Calcium Ferritin Total Bilirubin Alkaline Phosphatase Lactate Dehydrogenase Troponin T C-Reactive Protein Total Protein Albumin Prealbumin LDL Cholesterol Direct Arterial Blood Glucose Arterial Blood Ionized Calcium Urine WBC (Auto) 03/12/20 03/12/20 03/13/20 17:32 23:57 05:57 WBC RBC Hgb Hct MCV MCH RDW Plt Count Lymph % (Auto) [place] # (Auto) Seg Neutrophils % Seg Neuts % (Manual) Lymphocytes % (Manual) Monocytes % (Manual) Basophils % (Manual) Seg Neutrophils # Seg Neutrophils # Man Lymphocytes # (Manual) Monocytes # (Manual) Eosinophils # (Manual) Basophils # (Manual) PT INR D-Dimer ABG pH POC ABG pCO2 POC ABG pO2 ABG pO2 ABG HCO3 ABG O2 Saturation ABG Base Excess ABG Hemoglobin ABG Oxyhemoglobin ABG Potassium ABG Glucose Oxyhemoglobin Carboxyhemoglobin Sodium Potassium Chloride Carbon Dioxide BUN Creatinine Glucose POC Glucose 141 H 137 H 161 H Calcium Ferritin Total Bilirubin Alkaline Phosphatase Lactate Dehydrogenase Troponin T C-Reactive Protein Total Protein Albumin Prealbumin LDL Cholesterol Direct Arterial Blood Glucose Arterial Blood Ionized Calcium Urine WBC (Auto) 03/13/20 03/13/20 03/13/20 12:28 14:14 18:39 WBC RBC Hgb Hct MCV MCH RDW Plt Count Lymph % (Auto) [place] # (Auto) Seg Neutrophils % Seg Neuts % (Manual) Lymphocytes % (Manual) Monocytes % (Manual) Basophils % (Manual) Seg Neutrophils # Seg Neutrophils # Man Lymphocytes # (Manual) Monocytes # (Manual) Eosinophils # (Manual) Basophils # (Manual) PT INR D-Dimer ABG pH POC ABG pCO2 POC ABG pO2 ABG pO2 ABG HCO3 ABG O2 Saturation ABG Base Excess ABG Hemoglobin ABG Oxyhemoglobin ABG Potassium ABG Glucose Oxyhemoglobin Carboxyhemoglobin Sodium Potassium Chloride Carbon Dioxide 39 H BUN Creatinine < 0.2 L Glucose 129 H POC Glucose 130 H 125 H Calcium Ferritin Total Bilirubin Alkaline Phosphatase Lactate Dehydrogenase Troponin T C-Reactive Protein Total Protein Albumin Prealbumin LDL Cholesterol Direct Arterial Blood Glucose Arterial Blood Ionized Calcium Urine WBC (Auto) 03/13/20 03/14/20 03/14/20 23:33 05:24 08:07 WBC 16.8 H RBC 2.81 L Hgb 7.9 L Hct 23.9 L MCV MCH RDW 15.9 H Plt Count Lymph % (Auto) [place] # (Auto) Seg Neutrophils % Seg Neuts % (Manual) 84.0 H Lymphocytes % (Manual) 10.0 L Monocytes % (Manual) Basophils % (Manual) Seg Neutrophils # Seg Neutrophils # Man 14.1 H Lymphocytes # (Manual) Monocytes # (Manual) Eosinophils # (Manual) Basophils # (Manual) PT INR D-Dimer ABG pH POC ABG pCO2 POC ABG pO2 ABG pO2 ABG HCO3 ABG O2 Saturation ABG Base Excess ABG Hemoglobin ABG Oxyhemoglobin ABG Potassium ABG Glucose Oxyhemoglobin Carboxyhemoglobin Sodium Potassium Chloride Carbon Dioxide BUN Creatinine Glucose POC Glucose 146 H 125 H Calcium Ferritin Total Bilirubin Alkaline Phosphatase Lactate Dehydrogenase Troponin T C-Reactive Protein Total Protein Albumin Prealbumin LDL Cholesterol Direct Arterial Blood Glucose Arterial Blood Ionized Calcium Urine WBC (Auto) 03/14/20 03/14/20 03/14/20 08:07 12:21 18:26 WBC RBC Hgb Hct MCV MCH RDW Plt Count Lymph % (Auto) [place] # (Auto) Seg Neutrophils % Seg Neuts % (Manual) Lymphocytes % (Manual) Monocytes % (Manual) Basophils % (Manual) Seg Neutrophils # Seg Neutrophils # Man Lymphocytes # (Manual) Monocytes # (Manual) Eosinophils # (Manual) Basophils # (Manual) PT INR D-Dimer ABG pH POC ABG pCO2 POC ABG pO2 ABG pO2 ABG HCO3 ABG O2 Saturation ABG Base Excess ABG Hemoglobin ABG Oxyhemoglobin ABG Potassium ABG Glucose Oxyhemoglobin Carboxyhemoglobin Sodium Potassium Chloride 97.0 L Carbon Dioxide 37 H BUN Creatinine < 0.2 L Glucose 129 H POC Glucose 109 H 142 H Calcium 8.3 L Ferritin Total Bilirubin Alkaline Phosphatase Lactate Dehydrogenase Troponin T C-Reactive Protein Total Protein Albumin Prealbumin LDL Cholesterol Direct Arterial Blood Glucose Arterial Blood Ionized Calcium Urine WBC (Auto) 03/14/20 03/15/20 03/15/20 23:57 05:46 08:06 WBC 19.7 H RBC 3.29 L Hgb 9.1 L Hct 28.0 L MCV MCH RDW 15.9 H Plt Count Lymph % (Auto) [place] # (Auto) Seg Neutrophils % Seg Neuts % (Manual) Lymphocytes % (Manual) Monocytes % (Manual) Basophils % (Manual) Seg Neutrophils # Seg Neutrophils # Man Lymphocytes # (Manual) Monocytes # (Manual) Eosinophils # (Manual) Basophils # (Manual) PT INR D-Dimer ABG pH POC ABG pCO2 POC ABG pO2 ABG pO2 ABG HCO3 ABG O2 Saturation ABG Base Excess ABG Hemoglobin ABG Oxyhemoglobin ABG Potassium ABG Glucose Oxyhemoglobin Carboxyhemoglobin Sodium Potassium Chloride Carbon Dioxide BUN Creatinine Glucose POC Glucose 157 H 118 H Calcium Ferritin Total Bilirubin Alkaline Phosphatase Lactate Dehydrogenase Troponin T C-Reactive Protein Total Protein Albumin Prealbumin LDL Cholesterol Direct Arterial Blood Glucose Arterial Blood Ionized Calcium Urine WBC (Auto) 03/15/20 03/15/20 03/15/20 08:06 12:44 18:09 WBC RBC Hgb Hct MCV MCH RDW Plt Count Lymph % (Auto) [place] # (Auto) Seg Neutrophils % Seg Neuts % (Manual) Lymphocytes % (Manual) Monocytes % (Manual) Basophils % (Manual) Seg Neutrophils # Seg Neutrophils # Man Lymphocytes # (Manual) Monocytes # (Manual) Eosinophils # (Manual) Basophils # (Manual) PT INR D-Dimer ABG pH POC ABG pCO2 POC ABG pO2 ABG pO2 ABG HCO3 ABG O2 Saturation ABG Base Excess ABG Hemoglobin ABG Oxyhemoglobin ABG Potassium ABG Glucose Oxyhemoglobin Carboxyhemoglobin Sodium 136 L Potassium Chloride 93.6 L Carbon Dioxide 37 H BUN Creatinine < 0.2 L Glucose 132 H POC Glucose 151 H 164 H Calcium Ferritin Total Bilirubin Alkaline Phosphatase Lactate Dehydrogenase Troponin T C-Reactive Protein Total Protein Albumin Prealbumin LDL Cholesterol Direct Arterial Blood Glucose Arterial Blood Ionized Calcium Urine WBC (Auto) 03/15/20 03/16/20 03/16/20 23:26 05:39 11:58 WBC RBC Hgb Hct MCV MCH RDW Plt Count Lymph % (Auto) [place] # (Auto) Seg Neutrophils % Seg Neuts % (Manual) Lymphocytes % (Manual) Monocytes % (Manual) Basophils % (Manual) Seg Neutrophils # Seg Neutrophils # Man Lymphocytes # (Manual) Monocytes # (Manual) Eosinophils # (Manual) Basophils # (Manual) PT INR D-Dimer ABG pH POC ABG pCO2 POC ABG pO2 ABG pO2 ABG HCO3 ABG O2 Saturation ABG Base Excess ABG Hemoglobin ABG Oxyhemoglobin ABG Potassium ABG Glucose Oxyhemoglobin Carboxyhemoglobin Sodium Potassium Chloride Carbon Dioxide BUN Creatinine Glucose POC Glucose 136 H 116 H 109 H Calcium Ferritin Total Bilirubin Alkaline Phosphatase Lactate Dehydrogenase Troponin T C-Reactive Protein Total Protein Albumin Prealbumin LDL Cholesterol Direct Arterial Blood Glucose Arterial Blood Ionized Calcium Urine WBC (Auto) 03/16/20 03/17/20 03/17/20 23:56 04:40 04:40 WBC 18.0 H RBC 3.33 L Hgb 9.5 L Hct 28.8 L MCV MCH RDW 16.4 H Plt Count 499 H Lymph % (Auto) [place] # (Auto) Seg Neutrophils % Seg Neuts % (Manual) 82.0 H Lymphocytes % (Manual) 8.0 L Monocytes % (Manual) Basophils % (Manual) Seg Neutrophils # Seg Neutrophils # Man 14.8 H Lymphocytes # (Manual) Monocytes # (Manual) 1.3 H Eosinophils # (Manual) Basophils # (Manual) 0.2 H PT INR D-Dimer ABG pH POC ABG pCO2 POC ABG pO2 ABG pO2 ABG HCO3 ABG O2 Saturation ABG Base Excess ABG Hemoglobin ABG Oxyhemoglobin ABG Potassium ABG Glucose Oxyhemoglobin Carboxyhemoglobin Sodium Potassium Chloride 97.7 L Carbon Dioxide 32 H BUN Creatinine < 0.2 L Glucose 114 H POC Glucose 131 H Calcium Ferritin Total Bilirubin Alkaline Phosphatase Lactate Dehydrogenase Troponin T C-Reactive Protein Total Protein Albumin Prealbumin LDL Cholesterol Direct Arterial Blood Glucose Arterial Blood Ionized Calcium Urine WBC (Auto) 03/18/20 03/18/20 03/18/20 00:21 05:21 11:55 WBC RBC Hgb Hct MCV MCH RDW Plt Count Lymph % (Auto) [place] # (Auto) Seg Neutrophils % Seg Neuts % (Manual) Lymphocytes % (Manual) Monocytes % (Manual) Basophils % (Manual) Seg Neutrophils # Seg Neutrophils # Man Lymphocytes # (Manual) Monocytes # (Manual) Eosinophils # (Manual) Basophils # (Manual) PT INR D-Dimer ABG pH POC ABG pCO2 POC ABG pO2 ABG pO2 ABG HCO3 ABG O2 Saturation ABG Base Excess ABG Hemoglobin ABG Oxyhemoglobin ABG Potassium ABG Glucose Oxyhemoglobin Carboxyhemoglobin Sodium Potassium Chloride Carbon Dioxide BUN Creatinine Glucose POC Glucose 124 H 138 H 119 H Calcium Ferritin Total Bilirubin Alkaline Phosphatase Lactate Dehydrogenase Troponin T C-Reactive Protein Total Protein Albumin Prealbumin LDL Cholesterol Direct Arterial Blood Glucose Arterial Blood Ionized Calcium Urine WBC (Auto) 03/18/20 03/18/20 03/19/20 17:03 23:58 05:24 WBC RBC Hgb Hct MCV MCH RDW Plt Count Lymph % (Auto) [place] # (Auto) Seg Neutrophils % Seg Neuts % (Manual) Lymphocytes % (Manual) Monocytes % (Manual) Basophils % (Manual) Seg Neutrophils # Seg Neutrophils # Man Lymphocytes # (Manual) Monocytes # (Manual) Eosinophils # (Manual) Basophils # (Manual) PT INR D-Dimer ABG pH POC ABG pCO2 POC ABG pO2 ABG pO2 ABG HCO3 ABG O2 Saturation ABG Base Excess ABG Hemoglobin ABG Oxyhemoglobin ABG Potassium ABG Glucose Oxyhemoglobin Carboxyhemoglobin Sodium Potassium Chloride Carbon Dioxide BUN Creatinine Glucose POC Glucose 128 H 128 H 115 H Calcium Ferritin Total Bilirubin Alkaline Phosphatase Lactate Dehydrogenase Troponin T C-Reactive Protein Total Protein Albumin Prealbumin LDL Cholesterol Direct Arterial Blood Glucose Arterial Blood Ionized Calcium Urine WBC (Auto) 03/19/20 03/19/20 03/19/20 08:05 08:05 11:56 WBC 16.8 H RBC 3.36 L Hgb 9.4 L Hct 28.8 L MCV MCH RDW 17.4 H Plt Count 567 H Lymph % (Auto) 7.8 L [place] # (Auto) 1.2 H Seg Neutrophils % 83.5 H Seg Neuts % (Manual) Lymphocytes % (Manual) Monocytes % (Manual) Basophils % (Manual) Seg Neutrophils # 14.1 H Seg Neutrophils # Man Lymphocytes # (Manual) Monocytes # (Manual) Eosinophils # (Manual) Basophils # (Manual) PT INR D-Dimer ABG pH POC ABG pCO2 POC ABG pO2 ABG pO2 ABG HCO3 ABG O2 Saturation ABG Base Excess ABG Hemoglobin ABG Oxyhemoglobin ABG Potassium ABG Glucose Oxyhemoglobin Carboxyhemoglobin Sodium Potassium Chloride Carbon Dioxide 36 H BUN Creatinine < 0.2 L Glucose 135 H POC Glucose 128 H Calcium Ferritin Total Bilirubin Alkaline Phosphatase Lactate Dehydrogenase Troponin T C-Reactive Protein Total Protein Albumin Prealbumin LDL Cholesterol Direct Arterial Blood Glucose Arterial Blood Ionized Calcium Urine WBC (Auto) 03/19/20 03/20/20 03/20/20 23:59 05:12 16:52 WBC RBC Hgb Hct MCV MCH RDW Plt Count Lymph % (Auto) [place] # (Auto) Seg Neutrophils % Seg Neuts % (Manual) Lymphocytes % (Manual) Monocytes % (Manual) Basophils % (Manual) Seg Neutrophils # Seg Neutrophils # Man Lymphocytes # (Manual) Monocytes # (Manual) Eosinophils # (Manual) Basophils # (Manual) PT INR D-Dimer ABG pH POC ABG pCO2 POC ABG pO2 ABG pO2 ABG HCO3 ABG O2 Saturation ABG Base Excess ABG Hemoglobin ABG Oxyhemoglobin ABG Potassium ABG Glucose Oxyhemoglobin Carboxyhemoglobin Sodium Potassium Chloride Carbon Dioxide BUN Creatinine Glucose POC Glucose 120 H 131 H 124 H Calcium Ferritin Total Bilirubin Alkaline Phosphatase Lactate Dehydrogenase Troponin T C-Reactive Protein Total Protein Albumin Prealbumin LDL Cholesterol Direct Arterial Blood Glucose Arterial Blood Ionized Calcium Urine WBC (Auto) 03/20/20 03/21/20 03/21/20 23:35 04:50 07:35 WBC 15.2 H RBC 3.39 L Hgb 9.4 L Hct 29.4 L MCV MCH RDW 17.6 H Plt Count 518 H Lymph % (Auto) [place] # (Auto) Seg Neutrophils % Seg Neuts % (Manual) 83.0 H Lymphocytes % (Manual) 10.0 L Monocytes % (Manual) Basophils % (Manual) 2.0 H Seg Neutrophils # Seg Neutrophils # Man 12.6 H Lymphocytes # (Manual) Monocytes # (Manual) Eosinophils # (Manual) Basophils # (Manual) 0.3 H PT INR D-Dimer ABG pH POC ABG pCO2 POC ABG pO2 ABG pO2 ABG HCO3 ABG O2 Saturation ABG Base Excess ABG Hemoglobin ABG Oxyhemoglobin ABG Potassium ABG Glucose Oxyhemoglobin Carboxyhemoglobin Sodium Potassium Chloride Carbon Dioxide BUN Creatinine Glucose POC Glucose 125 H 127 H Calcium Ferritin Total Bilirubin Alkaline Phosphatase Lactate Dehydrogenase Troponin T C-Reactive Protein Total Protein Albumin Prealbumin LDL Cholesterol Direct Arterial Blood Glucose Arterial Blood Ionized Calcium Urine WBC (Auto) 03/21/20 03/21/20 07:35 11:45 WBC RBC Hgb Hct MCV MCH RDW Plt Count Lymph % (Auto) [place] # (Auto) Seg Neutrophils % Seg Neuts % (Manual) Lymphocytes % (Manual) Monocytes % (Manual) Basophils % (Manual) Seg Neutrophils # Seg Neutrophils # Man Lymphocytes # (Manual) Monocytes # (Manual) Eosinophils # (Manual) Basophils # (Manual) PT INR D-Dimer ABG pH POC ABG pCO2 POC ABG pO2 ABG pO2 ABG HCO3 ABG O2 Saturation ABG Base Excess ABG Hemoglobin ABG Oxyhemoglobin ABG Potassium ABG Glucose Oxyhemoglobin Carboxyhemoglobin Sodium 136 L Potassium Chloride 97.7 L Carbon Dioxide 32 H BUN Creatinine < 0.2 L Glucose 103 H POC Glucose 126 H Calcium Ferritin Total Bilirubin Alkaline Phosphatase Lactate Dehydrogenase Troponin T C-Reactive Protein Total Protein Albumin Prealbumin LDL Cholesterol Direct Arterial Blood Glucose Arterial Blood Ionized Calcium Urine WBC (Auto) Chest x-ray: pending Allied health notes reviewed: RT
--- NOTE | 2020-03-21 16:57 | Progress Note ---
Assessment and Plan Assessment and plan: --Acute hypoxic hypercapnic respiratory failure; Intubated on mechanical ventilation. Etiology secondary to sepsis, ALS, multifocal pneumonia (Covid negative). --ALS --Elevated D-dimers; CTA chest, lower extremity venous Doppler both are negative Lovenox DVT prophylaxis --Bilateral pneumonia; probably community-acquired Versus atypical, empiric antibiotics Rocephin and Zithromax Cultures, check pro calcitonin --Sepsis secondary to pneumonia Leukocytosis, tachycardia, pneumonia on chest x-ray --Elevated troponin; Serial cardiac enzymes, serial EKGs Echocardiogram, cardiology consult if needed --Hypokalemia; replaced with KCl Monitor levels --Hyponatremia; IV fluids Closely monitor electrolytes --DVT prophylaxis; Lovenox Admit to ICU for close observation 02/25/2020. CTA of the chest reveals no PE but does illustrate the bilateral pneumonia. Doppler ultrasound also negative for DVT. Blood cultures are pending. Await COVID-19 testing. Patient currently requiring BiPAP IPAP 24/E PAP 6 with FiO2 of 25%. Continue O2 and BiPAP as clinically indicated. ID and pulmonary consulted. 02/26/2020. Blood cultures are negative x48 hours and Covid testing negative as well. Continue antibiotics per ID recommendations for community-acquired bilateral pneumonia. Cardiology consultation for elevated troponin. Check echocardiogram. 02/27/2020. Events of yesterday noted with asystole following V. fib arrest. Patient currently on AC mode rate 20, tidal volume 400, FiO2 50% and a PEEP of 6. Follow-up echocardiogram for elevated troponin. Cardiology suspects NSTEMI Type 2 in the setting of acute resp failure. Chest CTA and BLE Dopplers neg. we will discontinue Decadron given the Covid PCR is negative. 02/28/2020. I spoke with the sister Felisa Eli who is the power of civil rights attorney regarding advanced directives and she instructed me that she would like to continue with aggressive care at this time. I informed her of the guarded prognosis and high mortality/morbidity and she voiced understanding. Patient currently with AC mode ventilation rate 18, tidal volume 400, FiO2 40% and a PEEP of 6. Continue antibiotics for pneumonia. ID previously consulted. Also consult neurology with regards to ALS. 02/29/2020; patient is intubated and on CPAP patient is alert and oriented. Patient has ALS. Dr. Álvarez spoke with his sister and she wants aggressive care. Continue antibiotics for pneumonia. Neurology consulted for ALS. Prognosis poor 03/01/2020; patient is intubated and on CPAP, patient is alert and oriented. I spoke with his 2 sisters about the management plan. 03/02/2020; patient is intubated and on CPAP. Patient was alert and oriented. I spoke with Dr. mohr and he thinks patient may need mechanical ventilation, likely his disease progressed. Dr. Flowers did debridement this morning. 03/03/2020; patient is intubated and on CPAP, patient was on trilogy and BiPAP at home. Patient has ALS. on spontaneous breathing trial. Patient is alert and oriented but quadriplegic. Patient has severe bilateral pneumonia and is on cefepime and Vanco, ID is following. Patient has sacral decubitus ulcer and debridement was done by Dr. Flowers and there is no osteomyelitis. 03/05. Patient still on broad-spectrum antibiotics. Status post sacral de cubitus ulcer debridements-no osteomyelitis. Patient is on AC 25/400/30% PEEP 5. No blood gas results today. 03/06. Plan for tracheostomy by surgery. Still remains intubated. Labs reviewed-sodium 150. Started on free water 200 every 8hr. trend sodium. 03/07: s/p trach placement today, patient placed back on mechanical ventilation with trach. Plan to resume tube feeding with NG tube. Continue to monitor vitals, monitor BMP. 03/08: Patient noted to have distended abdomen with low urinary output. Obtain bladder scan rule out urine retention, UA and urine culture, continue to follow clinically. 03/09: Patient noted to have low blood pressure with SBP as low as 70s. Ordered for 500 mils normal saline bolus. CT abdomen showed bladder outlet obstruction, urology consulted. 03/10: placed on drake by urology o/n, improved urine outpt. cont to monitor BMP. resuded TF - cont free water with TF. wean off from vent as tolerated. 03/11: Vitals stable. cont TF, wean off from vent as tolerated. start on 1/2 NS for hypernatremia - follow BMP 03/12: wean off vent as tolerated, plan for speech eval, cont Tf for now, cont iv fluid 03/13: unable to wean off from vent, unable to do speech therapy eval. will need PEG tube, cont supportive care for now, cont NG tube feeding 03/14: consulted GI for PEg placemnet, cont supportive care. remains on vent at night 03/15: Discussed with GI, plan for PEG tube placement possibly tomorrow. Continue supportive care and wean off from vent as tolerated. Hold Lovenox dose tonight. 03/16: family didnot consent for PEG placement yesterday. I spoke with the daughter today and she is now agreeable for PEG tube. I explained the necessity of the procedure with RN to the patient also and he nodded started on tube feeding, for the procedure. will cont supportive care. planned for PEG tube placement tomorrow. 03/17: s/p PEG placement today, patient tolerated well, cont supportive care 03/18: Started on tube feeding with new PEG tube, continue to wean off vent as tolerated 03/19: cont to monitor with supportive care, wean off vent as tolerated 03/20: Continue to wean off vent as tolerated -but failing weaning trial. Still requiring vent support at night. Currently on PEG tube for tube feed. 03/21. Pt with PSV trials with FiO@ 30%, PEEP 6, PS 10. Currently on PEG tube for tube feed. The high probability of a clinically significant, sudden or life threatening deterioration of the [cardiac and respiratory] system(s) required my full and direct attention, intervention and personal management. The aggregate critical care time was [34] minutes. This time is in addition to time spent performing reported procedures but includes the following: [x] Data Review and interpretation [x] Patient assessment and monitoring of vital signs [x] Documentation [x] Medication orders and management History Interval history: 59-year-old male patient with significant past medical history of ALS, presented to ED with worsening shortness of breath since the morning MERCHANDISING REPRESENTATIVEJohnathon avalos was on a trilogy machine for breathing 18/11. EMS arrived, patient had O2 sats in the 80s. EMS attempted to place patient on their CPAP machine, however patient did not tolerate. Patient was admitted to the ICU with diagnosis of acute hypoxic respiratory failure and placed on BiPAP. Patient initially tolerated but later deteriorated with respiratory status. Therefore, patient was intubated on 02/26/2020 at 1500. Patient now on mechanical ventilation in the ICU. Hospitalist Physical - Constitutional Vitals: Temp Pulse Resp BP Pulse Ox 99.2 F 113 H 18 127/89 97 03/21/20 12:00 03/21/20 15:00 03/21/20 15:00 03/21/20 15:00 03/21/20 15:00 General appearance: Present: mild distress, other (Intubated on mechanical ventilation) - EENT Eyes: Present: PERRL, EOM intact ENT: hearing intact, clear oral mucosa, dentition normal - Neck Neck: Present: supple, normal ROM - Respiratory Respiratory effort: normal Respiratory: bilateral: CTA - Cardiovascular Rhythm: regular Heart Sounds: Present: S1 & S2. Absent: gallop, rub - Extremities Extremities: no ischemia, No edema, Full ROM - Abdominal General gastrointestinal: soft, non-tender, non-distended, normal bowel sounds - Integumentary Integumentary: Present: clear, warm, dry - Neurologic Neurologic: CNII-XII intact, moves all extremities HEART Score - HEART Score Troponin: Troponin T 0.034 ng/mL (0.00-0.029) H D 02/24/20 19:35 Results - Labs CBC & Chem 7: 03/21/20 07:35 03/21/20 07:35 Labs: Laboratory Last Values WBC 15.2 K/mm3 (4.5-11.0) H 03/21/20 07:35 RBC 3.39 M/mm3 (3.65-5.03) L 03/21/20 07:35 Hgb 9.4 gm/dl (11.8-15.2) L 03/21/20 07:35 Hct 29.4 % (35.5-45.6) L 03/21/20 07:35 MCV 87 fl (84-94) 03/21/20 07:35 MCH 28 pg (28-32) 03/21/20 07:35 MCHC 32 % (32-34) 03/21/20 07:35 RDW 17.6 % (13.2-15.2) H 03/21/20 07:35 Plt Count 518 K/mm3 (140-440) H 03/21/20 07:35 Lymph % (Auto) 7.8 % (13.4-35.0) L 03/19/20 08:05 Banner % (Auto) 7.3 % (0.0-7.3) 03/19/20 08:05 Eos % (Auto) 1.0 % (0.0-4.3) 03/19/20 08:05 Baso % (Auto) 0.7 % (0.0-1.8) 03/12/20 04:39 Lymph # (Auto) 1.3 K/mm3 (1.2-5.4) 03/19/20 08:05 Banner # (Auto) 1.2 K/mm3 (0.0-0.8) H 03/19/20 08:05 Eos # (Auto) 0.2 K/mm3 (0.0-0.4) 03/19/20 08:05 Baso # (Auto) 0.1 K/mm3 (0.0-0.1) 03/19/20 08:05 Add Manual Diff Complete 03/21/20 07:35 Total Counted 100 03/21/20 07:35 Seg Neutrophils % 83.5 % (40.0-70.0) H 03/19/20 08:05 Seg Neuts % (Manual) 83.0 % (40.0-70.0) H 03/21/20 07:35 Band Neutrophils % 0 % 03/21/20 07:35 Lymphocytes % (Manual) 10.0 % (13.4-35.0) L 03/21/20 07:35 Reactive Lymphs % (Man) 0 % 03/21/20 07:35 Monocytes % (Manual) 4.0 % (0.0-7.3) 03/21/20 07:35 Eosinophils % (Manual) 0 % (0.0-4.3) 03/21/20 07:35 Basophils % (Manual) 2.0 % (0.0-1.8) H 03/21/20 07:35 Metamyelocytes % 0 % 03/21/20 07:35 Myelocytes % 1.0 % 03/21/20 07:35 Promyelocytes % 0 % 03/21/20 07:35 Blast Cells % 0 % 03/21/20 07:35 Nucleated RBC % Not Reportable 03/21/20 07:35 Seg Neutrophils # 14.1 K/mm3 (1.8-7.7) H 03/19/20 08:05 Seg Neutrophils # Man 12.6 K/mm3 (1.8-7.7) H 03/21/20 07:35 Band Neutrophils # 0.0 K/mm3 03/21/20 07:35 Lymphocytes # (Manual) 1.5 K/mm3 (1.2-5.4) 03/21/20 07:35 Abs React Lymphs (Man) 0.0 K/mm3 03/21/20 07:35 Monocytes # (Manual) 0.6 K/mm3 (0.0-0.8) 03/21/20 07:35 Eosinophils # (Manual) 0.0 K/mm3 (0.0-0.4) 03/21/20 07:35 Basophils # (Manual) 0.3 K/mm3 (0.0-0.1) H 03/21/20 07:35 Metamyelocytes # 0.0 K/mm3 03/21/20 07:35 Myelocytes # 0.2 K/mm3 03/21/20 07:35 Promyelocytes # 0.0 K/mm3 03/21/20 07:35 Blast Cells # 0.0 K/mm3 03/21/20 07:35 WBC Morphology Not Reportable 03/21/20 07:35 Hypersegmented Neuts Not Reportable 03/21/20 07:35 Hyposegmented Neuts Not Reportable 03/21/20 07:35 Hypogranular Neuts Not Reportable 03/21/20 07:35 Smudge Cells Not Reportable 03/21/20 07:35 Toxic Granulation Not Reportable 03/21/20 07:35 Toxic Vacuolation Not Reportable 03/21/20 07:35 Dohle Bodies Not Reportable 03/21/20 07:35 Pelger-Huet Anomaly Not Reportable 03/21/20 07:35 Robert Rods Not Reportable 03/21/20 07:35 Platelet Estimate Consistent w auto 03/21/20 07:35 Clumped Platelets Not Reportable 03/21/20 07:35 Plt Clumps, EDTA Not Reportable 03/21/20 07:35 Large Platelets Not Reportable 03/21/20 07:35 Giant Platelets Not Reportable 03/21/20 07:35 Platelet Satelliting Not Reportable 03/21/20 07:35 Plt Morphology Comment Not Reportable 03/21/20 07:35 RBC Morphology Not Reportable 03/21/20 07:35 Dimorphic RBCs Not Reportable 03/21/20 07:35 Polychromasia Rare 03/21/20 07:35 Hypochromasia Not Reportable 03/21/20 07:35 Poikilocytosis Not Reportable 03/21/20 07:35 Anisocytosis 1+ 03/21/20 07:35 Microcytosis Not Reportable 03/21/20 07:35 Macrocytosis Not Reportable 03/21/20 07:35 Spherocytes 1+ 03/21/20 07:35 Pappenheimer Bodies Not Reportable 03/21/20 07:35 Sickle Cells Not Reportable 03/21/20 07:35 Target Cells Not Reportable 03/21/20 07:35 Tear Drop Cells Not Reportable 03/21/20 07:35 Ovalocytes Not Reportable 03/21/20 07:35 Stomatocytes Few 03/17/20 04:40 Helmet Cells Not Reportable 03/21/20 07:35 [place] Bodies Not Reportable 03/21/20 07:35 [place] Rings Not Reportable 03/21/20 07:35 Riaz Cells Not Reportable 03/21/20 07:35 Bite Cells Not Reportable 03/21/20 07:35 Crenated Cell Not Reportable 03/21/20 07:35 Elliptocytes Not Reportable 03/21/20 07:35 Acanthocytes (Spur) Not Reportable 03/21/20 07:35 Rouleaux Not Reportable 03/21/20 07:35 Hemoglobin C Crystals Not Reportable 03/21/20 07:35 Schistocytes Not Reportable 03/21/20 07:35 Malaria parasites Not Reportable 03/21/20 07:35 [place] Bodies Not Reportable 03/21/20 07:35 Hem Pathologist Commnt No 03/21/20 07:35 PT 15.6 Sec. (12.2-14.9) H 02/24/20 09:19 INR 1.21 (0.87-1.13) H 02/24/20 09:19 APTT 25.4 Sec. (24.2-36.6) 02/24/20 09:19 D-Dimer 1311.96 ng/mlDDU (0-234) H 02/24/20 09:19 ABG pH 7.371 (7.320-7.450) 03/08/20 12:34 POC ABG pCO2 63.1 mmHg (32.0-48.0) H 03/08/20 12:34 ABG pCO2 60.1 mm Hg 03/06/20 04:34 POC ABG pO2 90.5 mmHg (83-108) 03/08/20 12:34 ABG pO2 88.6 mm Hg (80.0-90.0) 03/06/20 04:34 POC ABG HCO3 35.7 03/08/20 12:34 ABG HCO3 37.9 mmol/L (20.0-26.0) H 03/06/20 04:34 ABG O2 Saturation 97.0 % (95.0-99.0) 03/06/20 04:34 ABG O2 Content 14.3 (0.0-44) 03/06/20 04:34 POC ABG Base Excess 8.7 03/08/20 12:34 ABG Base Excess 11.4 mmol/L (-2.0-3.0) H 03/06/20 04:34 ABG Hemoglobin 10.9 (12.0-17.5) L 03/08/20 12:34 ABG Oxyhemoglobin 95.9 (94-98) 03/08/20 12:34 ABG Carboxyhemoglobin 1.7 % (0.0-5.0) 03/06/20 04:34 ABG Methemoglobin 0.3 (0.0-1.5) 03/08/20 12:34 ABG Sodium 143.6 mmol/L (136.0-145.0) 03/08/20 12:34 ABG Potassium 3.8 mmol/L (3.40-4.50) 03/08/20 12:34 ABG Chloride 102.0 mmol/L (98-107) 03/08/20 12:34 ABG Glucose 176 mg/dL (65-95) H 03/08/20 12:34 Oxyhemoglobin 94.7 % (95.0-99.0) L 03/06/20 04:34 Carboxyhemoglobin 0.7 (0.5-1.5) 03/08/20 12:34 FiO2 30 03/08/20 12:34 Sodium 136 mmol/L (137-145) L 03/21/20 07:35 Potassium 4.6 mmol/L (3.6-5.0) 03/21/20 07:35 Chloride 97.7 mmol/L (98-107) L 03/21/20 07:35 Carbon Dioxide 32 mmol/L (22-30) H 03/21/20 07:35 Anion Gap 11 mmol/L 03/21/20 07:35 BUN 14 mg/dL (9-20) 03/21/20 07:35 Creatinine < 0.2 mg/dL (0.8-1.3) L 03/21/20 07:35 Estimated GFR > 60 ml/min 03/21/20 07:35 BUN/Creatinine Ratio 70 % 03/21/20 07:35 Glucose 103 mg/dL (75-100) H 03/21/20 07:35 POC Glucose 126 mg/dL (70-105) H 03/21/20 11:45 Lactic Acid 1.00 mmol/L (0.7-2.0) 02/24/20 12:07 Calcium 8.4 mg/dL (8.4-10.2) 03/21/20 07:35 Phosphorus 3.30 mg/dL (2.5-4.5) 03/20/20 14:18 Magnesium 2.00 mg/dL (1.7-2.3) 03/20/20 14:18 Ferritin 1715.0 ng/mL (30.0-300.0) H 02/24/20 10:01 Total Bilirubin 0.60 mg/dL (0.1-1.2) 03/08/20 06:43 AST 34 units/L (5-40) 03/08/20 06:43 ALT 14 units/L (7-56) 03/08/20 06:43 Alkaline Phosphatase 56 units/L (35-129) 03/08/20 06:43 Lactate Dehydrogenase 303 units/L (91-180) H 02/24/20 09:19 Total Creatine Kinase 101 units/L (55-170) 02/24/20 19:35 CK-MB (CK-2) 3.5 ng/mL (0.0-4.0) 02/24/20 19:35 CK-MB (CK-2) Rel Index 3.4 (0-4) 02/24/20 19:35 Troponin T 0.034 ng/mL (0.00-0.029) H D 02/24/20 19:35 C-Reactive Protein 4.70 mg/dL (0.00-1.30) H 02/28/20 11:05 NT-Pro-B Natriuret Pep 48.30 pg/mL (0-900) 02/24/20 09:19 Total Protein 5.9 g/dL (6.3-8.2) L 03/08/20 06:43 Albumin 3.2 g/dL (3.9-5) L 03/08/20 06:43 Albumin/Globulin Ratio 1.2 % 03/08/20 06:43 Prealbumin 0.090 g/L (0.200-0.400) L 02/28/20 12:54 Triglycerides 60 mg/dL (2-149) 02/24/20 09:19 Cholesterol 104 mg/dL (50-199) 02/24/20 09:19 LDL Cholesterol Direct 41 mg/dL (50-130) L 02/24/20 09:19 HDL Cholesterol 45 mg/dL (40-59) 02/24/20 09:19 Cholesterol/HDL Ratio 2.31 % 02/24/20 09:19 Procalcitonin 0.16 ng/mL (<0.15) 03/09/20 08:35 Arterial Blood Glucose 176 mg/dL (65-95) H 03/08/20 12:34 Arterial Blood Ionized Calcium 4.5 mg/dL (4.6-5.3) L 03/08/20 12:34 Urine Color Yellow (Yellow) 03/08/20 08:57 Urine Turbidity Clear (Clear) 03/08/20 08:57 Urine pH 6.0 (5.0-7.0) 03/08/20 08:57 Ur Specific [place] 1.017 (1.003-1.030) 03/08/20 08:57 Urine Protein <15 mg/dl mg/dL (Negative) 03/08/20 08:57 Urine Glucose (UA) Neg mg/dL (Negative) 03/08/20 08:57 Urine Ketones Neg mg/dL (Negative) 03/08/20 08:57 Urine Blood Neg (Negative) 03/08/20 08:57 Urine Nitrite Neg (Negative) 03/08/20 08:57 Urine Bilirubin Neg (Negative) 03/08/20 08:57 Urine Urobilinogen < 2.0 mg/dL (<2.0) 03/08/20 08:57 Ur Leukocyte Esterase Neg (Negative) 03/08/20 08:57 Urine WBC (Auto) 10.0 /HPF (0.0-6.0) H 03/08/20 08:57 Urine RBC (Auto) 13.0 /HPF (0.0-6.0) 03/08/20 08:57 U Epithel Cells (Auto) < 1.0 /HPF (0-13.0) 03/08/20 08:57 Urine Bacteria (Auto) 2+ /HPF (Negative) 03/08/20 08:57 Urine Mucus Few /HPF 03/08/20 08:57 Urine Yeast (Budding) 3+ /HPF 03/08/20 08:57 Vancomycin Trough 8.0 ug/mL (5.0-20.0) 03/04/20 08:59 Coronavirus (PCR) Negative (Negative) 02/25/20 09:03 - Diagnostic Impressions Diagnostic Impressions: Echocardiogram 02/26/20 10:41 Transthoracic Echocardiogram Indication: Elevated Trop BP: 116/75 HR: 85 Conclusions *Global left ventricular wall motion and contractility are within normal limits. *The estimated ejection fraction is 50-55%. *Abnormal left ventricular diastolic filling is observed, consistent with impaired relaxation. *There is no pericardial effusion. Findings Left Ventricle: The left ventricular chamber size is normal. Global left ventricular wall motion and contractility are within normal limits. Global left ventricular systolic function is normal. The estimated ejection fraction is 50-55%. Abnormal left ventricular diastolic filling is observed, consistent with impaired relaxation. Left Atrium: The left atrial chamber size is normal. Right Ventricle: The right ventricular cavity size is normal. Right Atrium: The right atrial cavity size is normal. Aortic Valve: Mild aortic leaflet calcification is visualized. There is no evidence of aortic regurgitation. Mitral Valve: The mitral valve leaflets are mildly thickened. There is no evidence of mitral regurgitation. Tricuspid Valve: The tricuspid valve leaflets are normal. There is trace tricuspid regurgitation. The right ventricular systolic pressure is calculated at 29 mmHg. Pulmonic Valve: The pulmonic valve is not well visualized. Pericardium: There is no pericardial effusion. Aorta: The aorta appears normal. Venous: The inferior vena cava is dilated. There is less than 50% respiratory change in the inferior vena cava dimension. Measurements Chambers 2D Name Value Normal Range IVSd (2D) 0.97 cm (0.6 - 1.1) LVPWd (2D) 0.93 cm (0.6 - 1.1) LVIDd (2D) 4 cm (3.7 - 5.6) LVIDs (2D) 2.73 cm (2 - 3.8) LV FS (2D) 31.67 % - EF Teichholz (2D) 60.23 % - Ao root diameter (2D) 3.51 cm (2 - 3.7) Volumes/Mass Name Value Normal Range LA ESV SP 4CH (A/L) 8.43 ml - LA ESV SP 2CH (A/L) 18.89 ml - LA ESV BP (A/L) 13.02 ml - LA ESV BP (A/L) index 8.8 ml/m2 - LA ESV SP 4CH (MOD) 7.22 ml - LA ESV SP 2CH (MOD) 18.15 ml - LA ESV BP (MOD) 11.47 ml - LA ESV BP (MOD) index 7.75 ml/m2 - Diastolic/Systolic Function Name Value Normal Range MV E-wave Vmax 0.51 m/sec - MV deceleration time 180.22 msec - MV A-wave Vmax 0.62 m/sec - MV E:A ratio 0.82 ratio - Aortic Valve Name Value Normal Range AV Vmax 1.17 m/sec - AV VTI 19.71 cm - AV peak gradient 5.44 mmHg - AV mean gradient 3.38 mmHg - LVOT diameter 2.26 cm - LVOT Vmax 0.89 m/sec - LVOT VTI 13.72 cm - LVOT peak gradient 3.17 mmHg - LVOT mean gradient 1.67 mmHg - SV LVOT 55.03 ml - SHARAD (continuity Vmax) 3.06 cm2 - SHARAD (continuity VTI) 2.79 cm2 - Tricuspid Valve Name Value Normal Range TR Vmax 2.3 m/sec - TR peak gradient 21 mmHg - RAP 8 mmHg - RVSP 29 mmHg - IVC diameter 2.59 cm (1.2 - 2.3) Pulmonic Valve/Qp:Qs Name Value Normal Range PV acceleration time 68.51 msec - Drake/IV: Voiding Method Indwelling Catheter IV Catheter Type [Right Hand] Peripheral IV IV Catheter Type [Left Wrist] Peripheral IV IV Catheter Type [Right Peripheral IV Forearm] IV Catheter Type [Right Triple Lumen Cath Internal Jugular] IV Catheter Type [Left Forearm INT / Saline Lock ] IV Catheter Type [Right Triple Lumen Cath Femoral] IV Catheter Type [Right INT / Saline Lock Antecubital] Active Medications - Current Medications Current Medications: Generic Name Dose Route Start Last Admin Trade Name Freq PRN Reason Stop Dose Admin Acetaminophen 650 mg 02/24/20 15:13 03/08/20 00:10 Tylenol PO 650 mg Q4H PRN Administration Pain, Mild (1-3) Albuterol 2.5 mg 02/24/20 15:13 Proventil IH Q4HRT PRN Shortness Of Breath Lipase/Protease/Amylase 1 each 02/26/20 11:[address] 10,500 Unit FEEDTUBE PRN PRN For Clogged Feeding Tube Bisacodyl 10 mg 03/12/20 18:00 03/15/20 17:50 Dulcolax SC 10 mg QDAY PRN Administration Bowel Movement Docusate Sodium 100 mg 03/12/20 22:00 03/21/20 10:33 Colace PO 100 mg BID ALISA Administration Enoxaparin Sodium 40 mg 03/20/20 22:00 03/20/20 22:05 Enoxaparin SUB-Q 40 mg QDAY@2200 ALISA Administration Protocol Glycopyrrolate 2 mg 03/08/20 20:00 03/21/20 15:24 Glycopyrrolate PO 2 mg TID ALISA Administration Lansoprazole 30 mg 02/28/20 10:00 03/21/20 10:34 Prevacid Solutab FEEDTUBE 30 mg QDAY ALISA Administration Metoprolol Tartrate 12.5 mg 02/24/20 22:00 03/21/20 10:34 Metoprolol PO 12.5 mg BID ALISA Administration Morphine Sulfate 2 mg 02/29/20 16:42 03/20/20 19:07 Morphine IV 2 mg Q4H PRN Administration Pain, Moderate (4-6) Polyethylene Glycol 17 gm 03/12/20 22:00 03/20/20 22:06 Miralax 3350 PO 17 gm QHS ALISA Administration Scopolamine 1 each 03/03/20 14:00 03/21/20 10:36 Transderm-Scop TD 1 each Q3D ALISA Administration Simple Syrup 15 ml 02/26/20 11:16 Simple Syrup FEEDTUBE PRN PRN Hypoglycemia Simple Syrup 30 ml 02/26/20 11:16 Simple Syrup FEEDTUBE PRN PRN Hypoglycemia Sodium Bicarbonate 325 mg 02/26/20 11:16 Sodium Bicarbonate FEEDTUBE PRN PRN For Clogged Feeding Tube Tamsulosin HCl 0.4 mg 03/09/20 18:00 03/21/20 10:34 Flomax PO 0.4 mg QDAY ALISA Administration Nutrition/Malnutrition Assess - Dietary Evaluation Nutrition/Malnutrition Findings: Nutrition Notes Start: 02/26/20 10:40 Freq: Status: Active Protocol: Document 03/21/20 13:36 LP (Rec: 03/21/20 13:41 LP [id number]) Nutrition Notes Initial or Follow up Reassessment Current Diagnosis Decubitus(Pressure Ulcer), Sepsis,Respiratory Failure Other Pertinent Diagnosis COVID-19 (-), ALS, pneumonia, Hip/buttock PU Current Diet Vital AF 1.2 at 75ml/hr (goal rate) Labs/Tests Na 136 Pertinent Medications Reviewed Height 6 ft Weight 66.4 kg [place] Body Weight (kg) 80.90 BMI 19.8 Weight Status Appropriate Subjective/Other Information Pt continues tolerating TF at goal rate. PEG placed. Percent of energy/protein needs met: 100%/100% Burn Absent Trauma Absent GI Symptoms None Skin Integrity/Comment Pressure Ulcer Stage 2 Current % PO Negligible Minimum of two criteria Yes Body Fat Depletion Mild depletion (non-severe) Muscle Mass Mild Depletion (non-severe) Reduced Dba Developer Strength Measurably Reduced (severe) #3 Nutrition Diagnosis Malnutrition Diagnosis Progress(for reassessment Continues documentation) #2 Nutrition Diagnosis Inadequate oral intake Diagnosis Progress(for reassessment Continues documentation) #1 Nutrition Diagnosis Increased nutrient needs ( specify in comment below) Diagnosis Progress(for reassessment Continues documentation) Is patient on ventilator? Yes Is Patient Ambulatory and/or Out of Bed No REE-([facility]-confined to bed) 1825.272 Kcal/Kg value to use for calculation 35 Approximate Energy Requirements Using 2324 kcal/Kg Calculation Used for Recommendations Kcal/kg Additional Notes Protein needs: 80-133 g (1.2-2 g/ kg ABW) Fluid: 1ml/kcal Nutrition Intervention Change Diet Order: Continue TF Nutrition Support: Vital AF 1.2 at 75ml/hr. Flush 200ml q4h For hyponatremia, flush 150 mL q4h Kcal 2,160 Protein (gm) 135 Fluid (mL) 1,460 Add Supplement/Snack (indicate name/kcal Will BID /protein ) Provides kCal: 190 Provides Protein (gm) 5 Goal #1 Meet at least 80% of energy and protein needs via TF Goal #2 Wound healing Anticipated Discharge Needs: Unable to determine at this time Follow-Up By: 03/28/20 Additional Comments Follow for stable TF
[2020-03-21] MEDS: POLYETHYLENE GLYCOL 3350 17 GM POWDER PO SCH (22:33)
[2020-03-21] MEDS: ENOXAPARIN 40 MG/0.4 ML INJ SUB-Q SCH (22:34)
[2020-03-22 07:33] LABS: Hematocrit 30.7 % (35.5-45.6); Mean Corpuscular HGB Conc 33 % (32-34); Mean Corpuscular Volume 87 fl (84-94); Platelet Count 499 K/mm3 (140-440); Red Blood Count 3.52 M/mm3 (3.65-5.03); Red Cell Distribution Width 17.5 % (13.2-15.2)
[2020-03-22 07:52] LABS: Blood Urea Nitrogen 15 mg/dL (9-20); Calcium 8.8 mg/dL (8.4-10.2); Hemolysis Index 21
--- NOTE | 2020-03-22 07:53 | Progress Note ---
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 Respiratory Failure Severe Sepsis with Shock Bilateral Pneumonia (Possible aspiration) History of ALS on Trilogy Oropharyngeal Dysphagia s/p PEG Acute toxic metabolic encephalopathy-resolved Elevated D-dimer Elevated troponin possibly type 2 ischemia - continue daytime PSV as tolerated He is not tolerating ATP trials and may end up vent dependant. Continue to attempt ATP trials as tolerated - ABG, CXR as clinically indicated - continue Robinul & scopolamine for secretion control - Keep K at 4, Mg at 2 and Phos at 2.5 to optimize respiratory muscle function - wound care per RN/WCN, off loading, frequent turning, mobility per facility protocol - wean supplemental oxygen for target O2 sats > 92% - VAP bundle addressed, aspiration precautions, HOB >40 - continue lung protective strategies - continue bronchodilators with pulmonary hygiene per RT - s/p empiric antiinfectives per ID recs (Rocephin and Zithromax) - enteral nutrition at goal rate as tolerated - accuchecks with glycemic control per SSI (While critically ill target blood glucose of 140-180 mg/dL; avoid hypoglycemia) - avoid nephrotoxins, renally dose all medications - avoid benzodiazepines, reduce the possibility of delirium - prn analgesia per CPOT score - Maintenance of sleep-wake cycle, avoid delirium - Continue stress ulcer and VTE prophylaxis (Famotidine and Enoxaparin) -Reardon in place for urinary retention and sacral decubitus ulcer - PT/OT/ROM exercises - Monitor hemodynamics closely - continue other care per attending / other consultants - discharge planning ongoing concurrently CONDITION: CRITICAL PROGNOSIS: GUARDED CODE STATUS: FULL CODE The high probability of a clinically significant, sudden or life-threatening deterioration of the [respiratory, cardiovascular & neurologic] system(s) required my full and direct attention, intervention and personal management. The aggregate critical care time was [31] minutes without overlap. Time includes spent on; [x] Data Review and interpretation [x] Patient assessment and monitoring of vital signs [x] Documentation [x] Medication orders and management Subjective Date of service: 03/22/20 Principal diagnosis: Ac on Ch Hypercapnic & hypoxemic Resp Failure; Severe Sepsis; Jamar PNA; ALS Interval history: Patient is seen today for: Acute on Chronic Hypercapnic & hypoxemic Respiratory Failure; Severe Sepsis with Shock; Bilateral Pneumonia (Possible aspiration); History of ALS on Trilogy; Acute toxic metabolic encephalopathy Seen and examined at bedside; 24hour events reviewed; nursing and respiratory care staff consulted; no adverse overnight events reported to me; resting in bed; remains on MVS; s/p PEG placement, tolerating tube feedings. Tolerating PSV at the bedside. Not tolerating ATP trials No fevers, no diarrhea, no vomiting. Appears frustrated with is current situation. Mouths words to make needs known Objective Vital Signs - 12hr 03/21/20 03/21/20 03/21/20 20:00 20:15 20:30 Temperature 98.6 F Pulse Rate 123 H 122 H 122 H Pulse Rate [ 124 H From Monitor] Respiratory 16 18 14 Rate Blood Pressure 116/84 116/84 125/87 O2 Sat by Pulse 98 97 97 Oximetry O2 Sat by Pulse Oximetry [ Assessment] 03/21/20 03/21/20 03/21/20 20:45 21:00 21:15 Temperature Pulse Rate 122 H 121 H 123 H Pulse Rate [ From Monitor] Respiratory 14 18 21 Rate Blood Pressure 125/87 113/85 113/85 O2 Sat by Pulse 98 98 98 Oximetry O2 Sat by Pulse Oximetry [ Assessment] 03/21/20 03/21/20 03/21/20 21:30 21:45 22:00 Temperature Pulse Rate 121 H 118 H 116 H Pulse Rate [ From Monitor] Respiratory 18 17 17 Rate Blood Pressure 122/84 122/84 119/85 O2 Sat by Pulse 98 98 98 Oximetry O2 Sat by Pulse Oximetry [ Assessment] 03/21/20 03/21/20 03/21/20 22:15 22:30 22:34 Temperature Pulse Rate 120 H 119 H 114 H Pulse Rate [ From Monitor] Respiratory 16 22 Rate Blood Pressure 119/85 125/86 125/86 O2 Sat by Pulse 98 98 Oximetry O2 Sat by Pulse Oximetry [ Assessment] 03/21/20 03/21/20 03/21/20 22:45 22:51 23:00 Temperature Pulse Rate 101 H 97 H 96 H Pulse Rate [ From Monitor] Respiratory 12 13 12 Rate Blood Pressure 119/85 119/85 102/75 O2 Sat by Pulse 99 100 98 Oximetry O2 Sat by Pulse Oximetry [ Assessment] 03/21/20 03/21/20 03/21/20 23:15 23:30 23:45 Temperature Pulse Rate 95 H 98 H 100 H Pulse Rate [ From Monitor] Respiratory 12 15 22 Rate Blood Pressure 102/75 113/77 113/77 O2 Sat by Pulse 99 99 99 Oximetry O2 Sat by Pulse Oximetry [ Assessment] 03/22/20 03/22/20 03/22/20 00:00 00:15 00:30 Temperature 98.3 F Pulse Rate 101 H 98 H 97 H Pulse Rate [ 99 H From Monitor] Respiratory 36 H 18 12 Rate Blood Pressure 122/87 122/87 109/71 O2 Sat by Pulse 98 99 98 Oximetry O2 Sat by Pulse Oximetry [ Assessment] 03/22/20 03/22/20 03/22/20 00:45 01:00 01:15 Temperature Pulse Rate 96 H 99 H 95 H Pulse Rate [ From Monitor] Respiratory 13 14 12 Rate Blood Pressure 109/71 104/74 104/74 O2 Sat by Pulse 98 99 98 Oximetry O2 Sat by Pulse Oximetry [ Assessment] 03/22/20 03/22/20 03/22/20 01:30 01:45 02:00 Temperature Pulse Rate 92 H 82 100 H Pulse Rate [ From Monitor] Respiratory 12 12 21 Rate Blood Pressure 104/69 104/69 105/73 O2 Sat by Pulse 98 98 99 Oximetry O2 Sat by Pulse Oximetry [ Assessment] 03/22/20 03/22/20 03/22/20 02:15 02:30 02:45 Temperature Pulse Rate 90 91 H 95 H Pulse Rate [ From Monitor] Respiratory 12 12 12 Rate Blood Pressure 105/73 97/62 97/62 O2 Sat by Pulse 99 98 99 Oximetry O2 Sat by Pulse Oximetry [ Assessment] 03/22/20 03/22/20 03/22/20 03:00 03:15 03:24 Temperature Pulse Rate 103 H 89 Pulse Rate [ From Monitor] Respiratory 12 12 Rate Blood Pressure 110/78 110/78 O2 Sat by Pulse 99 98 Oximetry O2 Sat by Pulse 99 Oximetry [ Assessment] 03/22/20 03/22/20 03/22/20 03:28 03:30 03:45 Temperature Pulse Rate 99 H 97 H 87 Pulse Rate [ From Monitor] Respiratory 12 12 Rate Blood Pressure 110/73 110/73 110/73 O2 Sat by Pulse 99 99 98 Oximetry O2 Sat by Pulse Oximetry [ Assessment] 03/22/20 03/22/20 03/22/20 04:00 04:15 04:30 Temperature 98.5 F Pulse Rate 82 88 106 H Pulse Rate [ 86 From Monitor] Respiratory 12 12 23 Rate Blood Pressure 98/65 98/65 106/71 O2 Sat by Pulse 97 97 100 Oximetry O2 Sat by Pulse Oximetry [ Assessment] 03/22/20 03/22/20 03/22/20 04:45 05:00 05:15 Temperature Pulse Rate 102 H 87 90 Pulse Rate [ From Monitor] Respiratory 18 11 L 13 Rate Blood Pressure 106/71 101/63 101/63 O2 Sat by Pulse 98 97 98 Oximetry O2 Sat by Pulse Oximetry [ Assessment] 03/22/20 03/22/20 03/22/20 05:30 05:45 06:00 Temperature Pulse Rate 98 H 98 H 90 Pulse Rate [ From Monitor] Respiratory 22 14 12 Rate Blood Pressure 102/70 102/70 105/69 O2 Sat by Pulse 97 97 97 Oximetry O2 Sat by Pulse Oximetry [ Assessment] 03/22/20 03/22/20 06:15 07:46 Temperature Pulse Rate 77 92 H Pulse Rate [ From Monitor] Respiratory 11 L 19 Rate Blood Pressure 105/69 103/71 O2 Sat by Pulse 98 97 Oximetry O2 Sat by Pulse Oximetry [ Assessment] Constitutional: no acute distress, other (thin middle aged male with normal respiratory effort at rest on MVS) Eyes: non-icteric ENT: oropharynx moist, other (S/P Tracheostomy) Neck: supple, no lymphadenopathy, no JVD Effort: mildly labored Ascultation: Bilateral: clear, diminished breath sounds, wheezes, rhonchi Percussion: Bilateral: not dull Cardiovascular: regular rate and rhythm, other (S1,S2, no murmurs) Gastrointestinal: normoactive bowel sounds, soft, non-tender, non-distended, other (+ distended but non tender suprapubis) Integumentary: normal, decubitus ulcer (sacral / gluteal) Extremities: no cyanosis, no edema, pulses normal, other (atrophic looking limbs) Neurologic: pupils equal and round, other (motor strength in extremities 1-2/5, awkae, alert, mouths words to make needs known) Psychiatric: depressed CBC and BMP: 03/24/20 07:15 03/24/20 07:15 ABG, PT/INR, D-dimer: ABG ABG pH 7.371 (7.320-7.450) 03/08/20 12:34 POC ABG pCO2 63.1 mmHg (32.0-48.0) H 03/08/20 12:34 ABG pCO2 60.1 mm Hg 03/06/20 04:34 POC ABG pO2 90.5 mmHg (83-108) 03/08/20 12:34 ABG pO2 88.6 mm Hg (80.0-90.0) 03/06/20 04:34 POC ABG HCO3 35.7 03/08/20 12:34 ABG O2 Saturation 97.0 % (95.0-99.0) 03/06/20 04:34 PT/INR, D-dimer PT 15.6 Sec. (12.2-14.9) H 02/24/20 09:19 INR 1.21 (0.87-1.13) H 02/24/20 09:19 D-Dimer 1311.96 ng/mlDDU (0-234) H 02/24/20 09:19 Abnormal lab findings: Abnormal Labs 02/24/20 02/24/20 02/24/20 09:19 09:19 09:19 WBC 20.2 H RBC 5.05 H Hgb Hct MCV MCH RDW 15.3 H Plt Count Lymph % (Auto) Camp # (Auto) Seg Neutrophils % Seg Neuts % (Manual) 86.0 H Lymphocytes % (Manual) 1.0 L Monocytes % (Manual) Basophils % (Manual) Seg Neutrophils # Seg Neutrophils # Man 17.4 H Lymphocytes # (Manual) 0.2 L Monocytes # (Manual) Eosinophils # (Manual) Basophils # (Manual) PT 15.6 H INR 1.21 H D-Dimer 1311.96 H ABG pH POC ABG pCO2 POC ABG pO2 ABG pO2 ABG HCO3 ABG O2 Saturation ABG Base Excess ABG Hemoglobin ABG Oxyhemoglobin ABG Potassium ABG Glucose Oxyhemoglobin Carboxyhemoglobin Sodium 135 L Potassium 3.2 L Chloride 92.2 L Carbon Dioxide BUN 6 L Creatinine < 0.2 L Glucose 124 H POC Glucose Calcium Ferritin Total Bilirubin 2.30 H Alkaline Phosphatase 132 H Lactate Dehydrogenase Troponin T 0.080 H C-Reactive Protein Total Protein Albumin 3.6 L Prealbumin LDL Cholesterol Direct 41 L Arterial Blood Glucose Arterial Blood Ionized Calcium Urine WBC (Auto) 02/24/20 02/24/20 02/24/20 09:19 09:58 10:01 WBC RBC Hgb Hct MCV MCH RDW Plt Count Lymph % (Auto) Camp # (Auto) Seg Neutrophils % Seg Neuts % (Manual) Lymphocytes % (Manual) Monocytes % (Manual) Basophils % (Manual) Seg Neutrophils # Seg Neutrophils # Man Lymphocytes # (Manual) Monocytes # (Manual) Eosinophils # (Manual) Basophils # (Manual) PT INR D-Dimer ABG pH 7.176 L* POC ABG pCO2 POC ABG pO2 ABG pO2 91.2 H ABG HCO3 ABG O2 Saturation ABG Base Excess -4.6 L ABG Hemoglobin ABG Oxyhemoglobin ABG Potassium ABG Glucose Oxyhemoglobin 92.6 L Carboxyhemoglobin Sodium Potassium Chloride Carbon Dioxide BUN Creatinine Glucose POC Glucose Calcium Ferritin 1715.0 H Total Bilirubin Alkaline Phosphatase Lactate Dehydrogenase 303 H Troponin T C-Reactive Protein 26.10 H Total Protein Albumin Prealbumin LDL Cholesterol Direct Arterial Blood Glucose Arterial Blood Ionized Calcium Urine WBC (Auto) 02/24/20 02/24/20 02/24/20 11:52 13:45 19:35 WBC RBC Hgb Hct MCV MCH RDW Plt Count Lymph % (Auto) Camp # (Auto) Seg Neutrophils % Seg Neuts % (Manual) Lymphocytes % (Manual) Monocytes % (Manual) Basophils % (Manual) Seg Neutrophils # Seg Neutrophils # Man Lymphocytes # (Manual) Monocytes # (Manual) Eosinophils # (Manual) Basophils # (Manual) PT INR D-Dimer ABG pH 7.051 L* 7.300 L POC ABG pCO2 POC ABG pO2 ABG pO2 94.7 H 75.1 L ABG HCO3 18.0 L ABG O2 Saturation 93.5 L ABG Base Excess -6.8 L -7.8 L ABG Hemoglobin 13.2 L 11.9 L ABG Oxyhemoglobin ABG Potassium ABG Glucose Oxyhemoglobin 91.0 L 92.7 L Carboxyhemoglobin Sodium Potassium Chloride Carbon Dioxide BUN Creatinine Glucose POC Glucose Calcium Ferritin Total Bilirubin Alkaline Phosphatase Lactate Dehydrogenase Troponin T 0.034 H D C-Reactive Protein Total Protein Albumin Prealbumin LDL Cholesterol Direct Arterial Blood Glucose Arterial Blood Ionized Calcium Urine WBC (Auto) 02/25/20 02/25/20 02/25/20 04:00 04:00 12:26 WBC 22.9 H RBC Hgb Hct MCV 83 L MCH 27 L RDW Plt Count 468 H Lymph % (Auto) Camp # (Auto) Seg Neutrophils % Seg Neuts % (Manual) 89.0 H Lymphocytes % (Manual) 7.0 L Monocytes % (Manual) Basophils % (Manual) Seg Neutrophils # Seg Neutrophils # Man 20.4 H Lymphocytes # (Manual) Monocytes # (Manual) Eosinophils # (Manual) Basophils # (Manual) PT INR D-Dimer ABG pH POC ABG pCO2 POC ABG pO2 ABG pO2 ABG HCO3 ABG O2 Saturation ABG Base Excess ABG Hemoglobin ABG Oxyhemoglobin ABG Potassium 2.6 L ABG Glucose 142 H Oxyhemoglobin Carboxyhemoglobin Sodium Potassium 3.2 L Chloride Carbon Dioxide 18 L BUN Creatinine 0.2 L Glucose 114 H POC Glucose Calcium Ferritin Total Bilirubin Alkaline Phosphatase Lactate Dehydrogenase Troponin T C-Reactive Protein Total Protein Albumin 3.5 L Prealbumin LDL Cholesterol Direct Arterial Blood Glucose 142 H Arterial Blood Ionized Calcium Urine WBC (Auto) 02/26/20 02/26/20 02/26/20 15:58 17:00 23:43 WBC RBC Hgb Hct MCV MCH RDW Plt Count Lymph % (Auto) Camp # (Auto) Seg Neutrophils % Seg Neuts % (Manual) Lymphocytes % (Manual) Monocytes % (Manual) Basophils % (Manual) Seg Neutrophils # Seg Neutrophils # Man Lymphocytes # (Manual) Monocytes # (Manual) Eosinophils # (Manual) Basophils # (Manual) PT INR D-Dimer ABG pH 7.502 H POC ABG pCO2 POC ABG pO2 213.6 H ABG pO2 ABG HCO3 ABG O2 Saturation ABG Base Excess ABG Hemoglobin ABG Oxyhemoglobin 99.2 H ABG Potassium 2.9 L ABG Glucose 160 H Oxyhemoglobin Carboxyhemoglobin 0.4 L Sodium Potassium Chloride Carbon Dioxide BUN Creatinine Glucose POC Glucose 189 H 120 H Calcium Ferritin Total Bilirubin Alkaline Phosphatase Lactate Dehydrogenase Troponin T C-Reactive Protein Total Protein Albumin Prealbumin LDL Cholesterol Direct Arterial Blood Glucose 160 H Arterial Blood Ionized Calcium 4.5 L Urine WBC (Auto) 02/27/20 02/27/20 02/27/20 05:00 07:04 17:45 WBC RBC Hgb Hct MCV MCH RDW Plt Count Lymph % (Auto) Camp # (Auto) Seg Neutrophils % Seg Neuts % (Manual) Lymphocytes % (Manual) Monocytes % (Manual) Basophils % (Manual) Seg Neutrophils # Seg Neutrophils # Man Lymphocytes # (Manual) Monocytes # (Manual) Eosinophils # (Manual) Basophils # (Manual) PT INR D-Dimer ABG pH 7.524 H POC ABG pCO2 POC ABG pO2 ABG pO2 ABG HCO3 ABG O2 Saturation ABG Base Excess ABG Hemoglobin ABG Oxyhemoglobin ABG Potassium 3.0 L ABG Glucose 143 H Oxyhemoglobin Carboxyhemoglobin Sodium Potassium Chloride Carbon Dioxide BUN Creatinine Glucose POC Glucose 154 H 175 H Calcium Ferritin Total Bilirubin Alkaline Phosphatase Lactate Dehydrogenase Troponin T C-Reactive Protein Total Protein Albumin Prealbumin LDL Cholesterol Direct Arterial Blood Glucose 143 H Arterial Blood Ionized Calcium Urine WBC (Auto) 02/27/20 02/28/20 02/28/20 Unknown 00:21 04:15 WBC 18.7 H RBC Hgb Hct MCV MCH RDW Plt Count Lymph % (Auto) 8.7 L Camp # (Auto) 1.2 H Seg Neutrophils % 84.6 H Seg Neuts % (Manual) Lymphocytes % (Manual) Monocytes % (Manual) Basophils % (Manual) Seg Neutrophils # 15.9 H Seg Neutrophils # Man Lymphocytes # (Manual) Monocytes # (Manual) Eosinophils # (Manual) Basophils # (Manual) PT INR D-Dimer ABG pH POC ABG pCO2 POC ABG pO2 ABG pO2 ABG HCO3 ABG O2 Saturation ABG Base Excess ABG Hemoglobin ABG Oxyhemoglobin ABG Potassium ABG Glucose Oxyhemoglobin Carboxyhemoglobin Sodium Potassium 2.9 L* Chloride Carbon Dioxide 33 H D BUN Creatinine < 0.2 L Glucose 157 H POC Glucose 134 H Calcium Ferritin Total Bilirubin Alkaline Phosphatase Lactate Dehydrogenase Troponin T C-Reactive Protein Total Protein Albumin Prealbumin LDL Cholesterol Direct Arterial Blood Glucose Arterial Blood Ionized Calcium Urine WBC (Auto) 02/28/20 02/28/20 02/28/20 04:15 05:16 05:39 WBC RBC Hgb Hct MCV MCH RDW Plt Count Lymph % (Auto) Camp # (Auto) Seg Neutrophils % Seg Neuts % (Manual) Lymphocytes % (Manual) Monocytes % (Manual) Basophils % (Manual) Seg Neutrophils # Seg Neutrophils # Man Lymphocytes # (Manual) Monocytes # (Manual) Eosinophils # (Manual) Basophils # (Manual) PT INR D-Dimer ABG pH POC ABG pCO2 POC ABG pO2 ABG pO2 142.9 H ABG HCO3 34.1 H ABG O2 Saturation ABG Base Excess 8.3 H ABG Hemoglobin ABG Oxyhemoglobin ABG Potassium ABG Glucose Oxyhemoglobin Carboxyhemoglobin Sodium 151 H Potassium Chloride Carbon Dioxide 32 H BUN Creatinine 0.2 L Glucose 167 H POC Glucose 138 H Calcium Ferritin Total Bilirubin Alkaline Phosphatase Lactate Dehydrogenase Troponin T C-Reactive Protein Total Protein Albumin Prealbumin LDL Cholesterol Direct Arterial Blood Glucose Arterial Blood Ionized Calcium Urine WBC (Auto) 02/28/20 02/28/20 02/28/20 11:05 11:33 12:54 WBC RBC Hgb Hct MCV MCH RDW Plt Count Lymph % (Auto) Camp # (Auto) Seg Neutrophils % Seg Neuts % (Manual) Lymphocytes % (Manual) Monocytes % (Manual) Basophils % (Manual) Seg Neutrophils # Seg Neutrophils # Man Lymphocytes # (Manual) Monocytes # (Manual) Eosinophils # (Manual) Basophils # (Manual) PT INR D-Dimer ABG pH POC ABG pCO2 POC ABG pO2 ABG pO2 ABG HCO3 ABG O2 Saturation ABG Base Excess ABG Hemoglobin ABG Oxyhemoglobin ABG Potassium ABG Glucose Oxyhemoglobin Carboxyhemoglobin Sodium Potassium Chloride Carbon Dioxide BUN Creatinine Glucose POC Glucose 160 H Calcium Ferritin Total Bilirubin Alkaline Phosphatase Lactate Dehydrogenase Troponin T C-Reactive Protein 4.70 H Total Protein Albumin Prealbumin 0.090 L LDL Cholesterol Direct Arterial Blood Glucose Arterial Blood Ionized Calcium Urine WBC (Auto) 02/28/20 02/29/20 02/29/20 17:34 00:44 04:05 WBC 19.6 H RBC Hgb Hct MCV MCH 27 L RDW 15.4 H Plt Count Lymph % (Auto) Camp # (Auto) Seg Neutrophils % Seg Neuts % (Manual) 86.0 H Lymphocytes % (Manual) 7.0 L Monocytes % (Manual) Basophils % (Manual) Seg Neutrophils # Seg Neutrophils # Man 16.9 H Lymphocytes # (Manual) Monocytes # (Manual) 1.2 H Eosinophils # (Manual) Basophils # (Manual) PT INR D-Dimer ABG pH POC ABG pCO2 POC ABG pO2 ABG pO2 ABG HCO3 ABG O2 Saturation ABG Base Excess ABG Hemoglobin ABG Oxyhemoglobin ABG Potassium ABG Glucose Oxyhemoglobin Carboxyhemoglobin Sodium Potassium Chloride Carbon Dioxide BUN Creatinine Glucose POC Glucose 136 H 156 H Calcium Ferritin Total Bilirubin Alkaline Phosphatase Lactate Dehydrogenase Troponin T C-Reactive Protein Total Protein Albumin Prealbumin LDL Cholesterol Direct Arterial Blood Glucose Arterial Blood Ionized Calcium Urine WBC (Auto) 02/29/20 02/29/20 02/29/20 04:05 05:14 05:33 WBC RBC Hgb Hct MCV MCH RDW Plt Count Lymph % (Auto) Camp # (Auto) Seg Neutrophils % Seg Neuts % (Manual) Lymphocytes % (Manual) Monocytes % (Manual) Basophils % (Manual) Seg Neutrophils # Seg Neutrophils # Man Lymphocytes # (Manual) Monocytes # (Manual) Eosinophils # (Manual) Basophils # (Manual) PT INR D-Dimer ABG pH POC ABG pCO2 54.3 H POC ABG pO2 124.8 H ABG pO2 ABG HCO3 ABG O2 Saturation ABG Base Excess ABG Hemoglobin ABG Oxyhemoglobin ABG Potassium ABG Glucose 185 H Oxyhemoglobin Carboxyhemoglobin Sodium 148 H Potassium Chloride Carbon Dioxide 33 H BUN Creatinine < 0.2 L Glucose 173 H POC Glucose 152 H Calcium Ferritin Total Bilirubin Alkaline Phosphatase Lactate Dehydrogenase Troponin T C-Reactive Protein Total Protein Albumin Prealbumin LDL Cholesterol Direct Arterial Blood Glucose 185 H Arterial Blood Ionized Calcium Urine WBC (Auto) 03/01/20 03/01/20 03/01/20 00:00 03:45 04:33 WBC 23.1 H RBC Hgb Hct MCV MCH 27 L RDW 15.3 H Plt Count Lymph % (Auto) Camp # (Auto) Seg Neutrophils % Seg Neuts % (Manual) 92.0 H Lymphocytes % (Manual) 6.0 L Monocytes % (Manual) Basophils % (Manual) Seg Neutrophils # Seg Neutrophils # Man 21.3 H Lymphocytes # (Manual) Monocytes # (Manual) Eosinophils # (Manual) 0.5 H Basophils # (Manual) PT INR D-Dimer ABG pH 7.492 H POC ABG pCO2 POC ABG pO2 ABG pO2 157.1 H ABG HCO3 32.3 H ABG O2 Saturation ABG Base Excess 8.1 H ABG Hemoglobin 13.2 L ABG Oxyhemoglobin ABG Potassium ABG Glucose Oxyhemoglobin Carboxyhemoglobin Sodium Potassium Chloride Carbon Dioxide BUN Creatinine Glucose POC Glucose 109 H Calcium Ferritin Total Bilirubin Alkaline Phosphatase Lactate Dehydrogenase Troponin T C-Reactive Protein Total Protein Albumin Prealbumin LDL Cholesterol Direct Arterial Blood Glucose Arterial Blood Ionized Calcium Urine WBC (Auto) 03/01/20 03/01/20 03/01/20 04:33 05:29 12:32 WBC RBC Hgb Hct MCV MCH RDW Plt Count Lymph % (Auto) Camp # (Auto) Seg Neutrophils % Seg Neuts % (Manual) Lymphocytes % (Manual) Monocytes % (Manual) Basophils % (Manual) Seg Neutrophils # Seg Neutrophils # Man Lymphocytes # (Manual) Monocytes # (Manual) Eosinophils # (Manual) Basophils # (Manual) PT INR D-Dimer ABG pH POC ABG pCO2 POC ABG pO2 ABG pO2 ABG HCO3 ABG O2 Saturation ABG Base Excess ABG Hemoglobin ABG Oxyhemoglobin ABG Potassium ABG Glucose Oxyhemoglobin Carboxyhemoglobin Sodium 146 H Potassium Chloride Carbon Dioxide 32 H BUN Creatinine < 0.2 L Glucose 120 H POC Glucose 120 H 128 H Calcium Ferritin Total Bilirubin Alkaline Phosphatase Lactate Dehydrogenase Troponin T C-Reactive Protein Total Protein Albumin Prealbumin LDL Cholesterol Direct Arterial Blood Glucose Arterial Blood Ionized Calcium Urine WBC (Auto) 03/01/20 03/01/20 03/02/20 17:38 23:46 06:13 WBC RBC Hgb Hct MCV MCH RDW Plt Count Lymph % (Auto) Camp # (Auto) Seg Neutrophils % Seg Neuts % (Manual) Lymphocytes % (Manual) Monocytes % (Manual) Basophils % (Manual) Seg Neutrophils # Seg Neutrophils # Man Lymphocytes # (Manual) Monocytes # (Manual) Eosinophils # (Manual) Basophils # (Manual) PT INR D-Dimer ABG pH POC ABG pCO2 POC ABG pO2 ABG pO2 ABG HCO3 ABG O2 Saturation ABG Base Excess ABG Hemoglobin ABG Oxyhemoglobin ABG Potassium ABG Glucose Oxyhemoglobin Carboxyhemoglobin Sodium Potassium Chloride Carbon Dioxide BUN Creatinine Glucose POC Glucose 114 H 121 H 120 H Calcium Ferritin Total Bilirubin Alkaline Phosphatase Lactate Dehydrogenase Troponin T C-Reactive Protein Total Protein Albumin Prealbumin LDL Cholesterol Direct Arterial Blood Glucose Arterial Blood Ionized Calcium Urine WBC (Auto) 03/02/20 03/02/20 03/03/20 09:47 09:47 10:21 WBC 23.6 H RBC Hgb Hct MCV MCH RDW 15.3 H Plt Count 494 H Lymph % (Auto) Camp # (Auto) Seg Neutrophils % Seg Neuts % (Manual) 85.0 H Lymphocytes % (Manual) 6.0 L Monocytes % (Manual) Basophils % (Manual) Seg Neutrophils # Seg Neutrophils # Man 20.1 H Lymphocytes # (Manual) Monocytes # (Manual) 1.7 H Eosinophils # (Manual) Basophils # (Manual) PT INR D-Dimer ABG pH POC ABG pCO2 POC ABG pO2 ABG pO2 ABG HCO3 ABG O2 Saturation ABG Base Excess ABG Hemoglobin ABG Oxyhemoglobin ABG Potassium 3.3 L ABG Glucose 158 H Oxyhemoglobin Carboxyhemoglobin Sodium Potassium Chloride Carbon Dioxide BUN Creatinine < 0.2 L Glucose 177 H POC Glucose Calcium Ferritin Total Bilirubin Alkaline Phosphatase Lactate Dehydrogenase Troponin T C-Reactive Protein Total Protein Albumin Prealbumin LDL Cholesterol Direct Arterial Blood Glucose 158 H Arterial Blood Ionized Calcium Urine WBC (Auto) 03/03/20 03/04/20 03/04/20 21:30 00:00 12:23 WBC RBC Hgb Hct MCV MCH RDW Plt Count Lymph % (Auto) Camp # (Auto) Seg Neutrophils % Seg Neuts % (Manual) Lymphocytes % (Manual) Monocytes % (Manual) Basophils % (Manual) Seg Neutrophils # Seg Neutrophils # Man Lymphocytes # (Manual) Monocytes # (Manual) Eosinophils # (Manual) Basophils # (Manual) PT INR D-Dimer ABG pH 7.328 L POC ABG pCO2 POC ABG pO2 ABG pO2 68.4 L ABG HCO3 35.0 H ABG O2 Saturation 93.9 L ABG Base Excess 6.8 H ABG Hemoglobin 12.7 L ABG Oxyhemoglobin ABG Potassium ABG Glucose Oxyhemoglobin 91.9 L Carboxyhemoglobin Sodium Potassium Chloride Carbon Dioxide BUN Creatinine Glucose POC Glucose 187 H 163 H Calcium Ferritin Total Bilirubin Alkaline Phosphatase Lactate Dehydrogenase Troponin T C-Reactive Protein Total Protein Albumin Prealbumin LDL Cholesterol Direct Arterial Blood Glucose Arterial Blood Ionized Calcium Urine WBC (Auto) 03/04/20 03/04/20 03/05/20 18:15 21:30 06:02 WBC RBC Hgb Hct MCV MCH RDW Plt Count Lymph % (Auto) Camp # (Auto) Seg Neutrophils % Seg Neuts % (Manual) Lymphocytes % (Manual) Monocytes % (Manual) Basophils % (Manual) Seg Neutrophils # Seg Neutrophils # Man Lymphocytes # (Manual) Monocytes # (Manual) Eosinophils # (Manual) Basophils # (Manual) PT INR D-Dimer ABG pH 7.297 L POC ABG pCO2 POC ABG pO2 ABG pO2 ABG HCO3 41.0 H ABG O2 Saturation ABG Base Excess 11.0 H ABG Hemoglobin 13.1 L ABG Oxyhemoglobin ABG Potassium ABG Glucose Oxyhemoglobin 94.5 L Carboxyhemoglobin Sodium Potassium Chloride Carbon Dioxide BUN Creatinine Glucose POC Glucose 192 H 127 H Calcium Ferritin Total Bilirubin Alkaline Phosphatase Lactate Dehydrogenase Troponin T C-Reactive Protein Total Protein Albumin Prealbumin LDL Cholesterol Direct Arterial Blood Glucose Arterial Blood Ionized Calcium Urine WBC (Auto) 03/05/20 03/05/20 03/06/20 12:09 16:42 00:24 WBC RBC Hgb Hct MCV MCH RDW Plt Count Lymph % (Auto) Camp # (Auto) Seg Neutrophils % Seg Neuts % (Manual) Lymphocytes % (Manual) Monocytes % (Manual) Basophils % (Manual) Seg Neutrophils # Seg Neutrophils # Man Lymphocytes # (Manual) Monocytes # (Manual) Eosinophils # (Manual) Basophils # (Manual) PT INR D-Dimer ABG pH POC ABG pCO2 POC ABG pO2 ABG pO2 ABG HCO3 ABG O2 Saturation ABG Base Excess ABG Hemoglobin ABG Oxyhemoglobin ABG Potassium ABG Glucose Oxyhemoglobin Carboxyhemoglobin Sodium Potassium Chloride Carbon Dioxide BUN Creatinine Glucose POC Glucose 147 H 114 H 134 H Calcium Ferritin Total Bilirubin Alkaline Phosphatase Lactate Dehydrogenase Troponin T C-Reactive Protein Total Protein Albumin Prealbumin LDL Cholesterol Direct Arterial Blood Glucose Arterial Blood Ionized Calcium Urine WBC (Auto) 03/06/20 03/06/20 03/06/20 04:34 05:53 06:08 WBC 25.4 H RBC Hgb 10.5 L Hct 32.7 L MCV MCH 27 L RDW 15.3 H Plt Count 634 H Lymph % (Auto) Camp # (Auto) Seg Neutrophils % Seg Neuts % (Manual) 88.0 H Lymphocytes % (Manual) 2.0 L Monocytes % (Manual) 8.0 H Basophils % (Manual) Seg Neutrophils # Seg Neutrophils # Man 22.4 H Lymphocytes # (Manual) 0.5 L Monocytes # (Manual) 2.0 H Eosinophils # (Manual) Basophils # (Manual) PT INR D-Dimer ABG pH POC ABG pCO2 POC ABG pO2 ABG pO2 ABG HCO3 37.9 H ABG O2 Saturation ABG Base Excess 11.4 H ABG Hemoglobin 10.6 L ABG Oxyhemoglobin ABG Potassium ABG Glucose Oxyhemoglobin 94.7 L Carboxyhemoglobin Sodium Potassium Chloride Carbon Dioxide BUN Creatinine Glucose POC Glucose 135 H Calcium Ferritin Total Bilirubin Alkaline Phosphatase Lactate Dehydrogenase Troponin T C-Reactive Protein Total Protein Albumin Prealbumin LDL Cholesterol Direct Arterial Blood Glucose Arterial Blood Ionized Calcium Urine WBC (Auto) 03/06/20 03/06/20 03/06/20 06:08 12:19 19:10 WBC RBC Hgb Hct MCV MCH RDW Plt Count Lymph % (Auto) Camp # (Auto) Seg Neutrophils % Seg Neuts % (Manual) Lymphocytes % (Manual) Monocytes % (Manual) Basophils % (Manual) Seg Neutrophils # Seg Neutrophils # Man Lymphocytes # (Manual) Monocytes # (Manual) Eosinophils # (Manual) Basophils # (Manual) PT INR D-Dimer ABG pH POC ABG pCO2 POC ABG pO2 ABG pO2 ABG HCO3 ABG O2 Saturation ABG Base Excess ABG Hemoglobin ABG Oxyhemoglobin ABG Potassium ABG Glucose Oxyhemoglobin Carboxyhemoglobin Sodium 150 H D Potassium Chloride Carbon Dioxide 39 H D BUN 23 H Creatinine < 0.2 L Glucose 144 H POC Glucose 169 H 152 H Calcium Ferritin Total Bilirubin Alkaline Phosphatase Lactate Dehydrogenase Troponin T C-Reactive Protein Total Protein Albumin 3.3 L Prealbumin LDL Cholesterol Direct Arterial Blood Glucose Arterial Blood Ionized Calcium Urine WBC (Auto) 03/06/20 03/07/20 03/07/20 23:58 04:25 04:25 WBC 22.1 H RBC Hgb 10.9 L Hct 32.9 L MCV MCH RDW 15.5 H Plt Count 739 H Lymph % (Auto) 7.8 L Camp # (Auto) 1.3 H Seg Neutrophils % 85.5 H Seg Neuts % (Manual) Lymphocytes % (Manual) Monocytes % (Manual) Basophils % (Manual) Seg Neutrophils # 18.9 H Seg Neutrophils # Man Lymphocytes # (Manual) Monocytes # (Manual) Eosinophils # (Manual) Basophils # (Manual) PT INR D-Dimer ABG pH POC ABG pCO2 POC ABG pO2 ABG pO2 ABG HCO3 ABG O2 Saturation ABG Base Excess ABG Hemoglobin ABG Oxyhemoglobin ABG Potassium ABG Glucose Oxyhemoglobin Carboxyhemoglobin Sodium 146 H Potassium Chloride Carbon Dioxide 37 H BUN Creatinine < 0.2 L Glucose 118 H POC Glucose 111 H Calcium Ferritin Total Bilirubin Alkaline Phosphatase Lactate Dehydrogenase Troponin T C-Reactive Protein Total Protein Albumin 3.7 L Prealbumin LDL Cholesterol Direct Arterial Blood Glucose Arterial Blood Ionized Calcium Urine WBC (Auto) 03/07/20 03/07/20 03/07/20 05:20 17:45 23:32 WBC RBC Hgb Hct MCV MCH RDW Plt Count Lymph % (Auto) Camp # (Auto) Seg Neutrophils % Seg Neuts % (Manual) Lymphocytes % (Manual) Monocytes % (Manual) Basophils % (Manual) Seg Neutrophils # Seg Neutrophils # Man Lymphocytes # (Manual) Monocytes # (Manual) Eosinophils # (Manual) Basophils # (Manual) PT INR D-Dimer ABG pH POC ABG pCO2 POC ABG pO2 ABG pO2 ABG HCO3 ABG O2 Saturation ABG Base Excess ABG Hemoglobin ABG Oxyhemoglobin ABG Potassium ABG Glucose Oxyhemoglobin Carboxyhemoglobin Sodium Potassium Chloride Carbon Dioxide BUN Creatinine Glucose POC Glucose 113 H 124 H 210 H Calcium Ferritin Total Bilirubin Alkaline Phosphatase Lactate Dehydrogenase Troponin T C-Reactive Protein Total Protein Albumin Prealbumin LDL Cholesterol Direct Arterial Blood Glucose Arterial Blood Ionized Calcium Urine WBC (Auto) 03/08/20 03/08/20 03/08/20 05:35 06:43 06:43 WBC 28.9 H RBC 3.53 L Hgb 9.7 L Hct 30.3 L MCV MCH RDW 15.6 H Plt Count 578 H Lymph % (Auto) Camp # (Auto) Seg Neutrophils % Seg Neuts % (Manual) 93.0 H Lymphocytes % (Manual) 4.0 L Monocytes % (Manual) Basophils % (Manual) Seg Neutrophils # Seg Neutrophils # Man 26.9 H Lymphocytes # (Manual) Monocytes # (Manual) Eosinophils # (Manual) Basophils # (Manual) PT INR D-Dimer ABG pH POC ABG pCO2 POC ABG pO2 ABG pO2 ABG HCO3 ABG O2 Saturation ABG Base Excess ABG Hemoglobin ABG Oxyhemoglobin ABG Potassium ABG Glucose Oxyhemoglobin Carboxyhemoglobin Sodium 146 H Potassium Chloride Carbon Dioxide 35 H BUN 34 H Creatinine 0.3 L D Glucose 125 H POC Glucose 147 H Calcium Ferritin Total Bilirubin Alkaline Phosphatase Lactate Dehydrogenase Troponin T C-Reactive Protein Total Protein 5.9 L Albumin 3.2 L Prealbumin LDL Cholesterol Direct Arterial Blood Glucose Arterial Blood Ionized Calcium Urine WBC (Auto) 03/08/20 03/08/20 03/08/20 08:57 11:14 12:34 WBC RBC Hgb Hct MCV MCH RDW Plt Count Lymph % (Auto) Camp # (Auto) Seg Neutrophils % Seg Neuts % (Manual) Lymphocytes % (Manual) Monocytes % (Manual) Basophils % (Manual) Seg Neutrophils # Seg Neutrophils # Man Lymphocytes # (Manual) Monocytes # (Manual) Eosinophils # (Manual) Basophils # (Manual) PT INR D-Dimer ABG pH POC ABG pCO2 63.1 H POC ABG pO2 ABG pO2 ABG HCO3 ABG O2 Saturation ABG Base Excess ABG Hemoglobin 10.9 L ABG Oxyhemoglobin ABG Potassium ABG Glucose 176 H Oxyhemoglobin Carboxyhemoglobin Sodium Potassium Chloride Carbon Dioxide BUN Creatinine Glucose POC Glucose 171 H Calcium Ferritin Total Bilirubin Alkaline Phosphatase Lactate Dehydrogenase Troponin T C-Reactive Protein Total Protein Albumin Prealbumin LDL Cholesterol Direct Arterial Blood Glucose 176 H Arterial Blood Ionized Calcium 4.5 L Urine WBC (Auto) 10.0 H 03/08/20 03/08/20 03/09/20 18:02 23:43 05:49 WBC RBC Hgb Hct MCV MCH RDW Plt Count Lymph % (Auto) Camp # (Auto) Seg Neutrophils % Seg Neuts % (Manual) Lymphocytes % (Manual) Monocytes % (Manual) Basophils % (Manual) Seg Neutrophils # Seg Neutrophils # Man Lymphocytes # (Manual) Monocytes # (Manual) Eosinophils # (Manual) Basophils # (Manual) PT INR D-Dimer ABG pH POC ABG pCO2 POC ABG pO2 ABG pO2 ABG HCO3 ABG O2 Saturation ABG Base Excess ABG Hemoglobin ABG Oxyhemoglobin ABG Potassium ABG Glucose Oxyhemoglobin Carboxyhemoglobin Sodium Potassium Chloride Carbon Dioxide BUN Creatinine Glucose POC Glucose 157 H 134 H 163 H Calcium Ferritin Total Bilirubin Alkaline Phosphatase Lactate Dehydrogenase Troponin T C-Reactive Protein Total Protein Albumin Prealbumin LDL Cholesterol Direct Arterial Blood Glucose Arterial Blood Ionized Calcium Urine WBC (Auto) 03/09/20 03/09/20 03/09/20 08:35 08:35 12:11 WBC 23.4 H RBC 3.36 L Hgb 9.3 L Hct 28.8 L MCV MCH RDW 15.9 H Plt Count 521 H Lymph % (Auto) Camp # (Auto) Seg Neutrophils % Seg Neuts % (Manual) 87.0 H Lymphocytes % (Manual) 4.0 L Monocytes % (Manual) 9.0 H Basophils % (Manual) Seg Neutrophils # Seg Neutrophils # Man 20.4 H Lymphocytes # (Manual) 0.9 L Monocytes # (Manual) 2.1 H Eosinophils # (Manual) Basophils # (Manual) PT INR D-Dimer ABG pH POC ABG pCO2 POC ABG pO2 ABG pO2 ABG HCO3 ABG O2 Saturation ABG Base Excess ABG Hemoglobin ABG Oxyhemoglobin ABG Potassium ABG Glucose Oxyhemoglobin Carboxyhemoglobin Sodium 147 H Potassium Chloride Carbon Dioxide 37 H BUN 63 H Creatinine Glucose 154 H POC Glucose 128 H Calcium Ferritin Total Bilirubin Alkaline Phosphatase Lactate Dehydrogenase Troponin T C-Reactive Protein Total Protein Albumin Prealbumin LDL Cholesterol Direct Arterial Blood Glucose Arterial Blood Ionized Calcium Urine WBC (Auto) 03/09/20 03/10/20 03/10/20 17:51 00:25 05:41 WBC RBC Hgb Hct MCV MCH RDW Plt Count Lymph % (Auto) Camp # (Auto) Seg Neutrophils % Seg Neuts % (Manual) Lymphocytes % (Manual) Monocytes % (Manual) Basophils % (Manual) Seg Neutrophils # Seg Neutrophils # Man Lymphocytes # (Manual) Monocytes # (Manual) Eosinophils # (Manual) Basophils # (Manual) PT INR D-Dimer ABG pH POC ABG pCO2 POC ABG pO2 ABG pO2 ABG HCO3 ABG O2 Saturation ABG Base Excess ABG Hemoglobin ABG Oxyhemoglobin ABG Potassium ABG Glucose Oxyhemoglobin Carboxyhemoglobin Sodium Potassium Chloride Carbon Dioxide BUN Creatinine Glucose POC Glucose 127 H 128 H 153 H Calcium Ferritin Total Bilirubin Alkaline Phosphatase Lactate Dehydrogenase Troponin T C-Reactive Protein Total Protein Albumin Prealbumin LDL Cholesterol Direct Arterial Blood Glucose Arterial Blood Ionized Calcium Urine WBC (Auto) 03/10/20 03/10/20 03/10/20 06:14 06:14 12:02 WBC 18.3 H RBC 3.45 L Hgb 9.5 L Hct 29.5 L MCV MCH RDW 16.1 H Plt Count 494 H Lymph % (Auto) Camp # (Auto) Seg Neutrophils % Seg Neuts % (Manual) 95.0 H Lymphocytes % (Manual) 1.0 L Monocytes % (Manual) Basophils % (Manual) Seg Neutrophils # Seg Neutrophils # Man 17.4 H Lymphocytes # (Manual) 0.2 L Monocytes # (Manual) Eosinophils # (Manual) Basophils # (Manual) PT INR D-Dimer ABG pH POC ABG pCO2 POC ABG pO2 ABG pO2 ABG HCO3 ABG O2 Saturation ABG Base Excess ABG Hemoglobin ABG Oxyhemoglobin ABG Potassium ABG Glucose Oxyhemoglobin Carboxyhemoglobin Sodium 149 H Potassium Chloride Carbon Dioxide 35 H BUN 34 H Creatinine 0.2 L D Glucose 177 H POC Glucose 151 H Calcium Ferritin Total Bilirubin Alkaline Phosphatase Lactate Dehydrogenase Troponin T C-Reactive Protein Total Protein Albumin Prealbumin LDL Cholesterol Direct Arterial Blood Glucose Arterial Blood Ionized Calcium Urine WBC (Auto) 03/10/20 03/10/20 03/11/20 17:41 23:53 05:02 WBC RBC Hgb Hct MCV MCH RDW Plt Count Lymph % (Auto) Camp # (Auto) Seg Neutrophils % Seg Neuts % (Manual) Lymphocytes % (Manual) Monocytes % (Manual) Basophils % (Manual) Seg Neutrophils # Seg Neutrophils # Man Lymphocytes # (Manual) Monocytes # (Manual) Eosinophils # (Manual) Basophils # (Manual) PT INR D-Dimer ABG pH POC ABG pCO2 POC ABG pO2 ABG pO2 ABG HCO3 ABG O2 Saturation ABG Base Excess ABG Hemoglobin ABG Oxyhemoglobin ABG Potassium ABG Glucose Oxyhemoglobin Carboxyhemoglobin Sodium Potassium Chloride Carbon Dioxide BUN Creatinine Glucose POC Glucose 168 H 142 H 146 H Calcium Ferritin Total Bilirubin Alkaline Phosphatase Lactate Dehydrogenase Troponin T C-Reactive Protein Total Protein Albumin Prealbumin LDL Cholesterol Direct Arterial Blood Glucose Arterial Blood Ionized Calcium Urine WBC (Auto) 03/11/20 03/11/20 03/11/20 11:30 14:01 14:01 WBC 19.7 H RBC 3.04 L Hgb 8.7 L Hct 25.8 L MCV MCH RDW 15.6 H Plt Count Lymph % (Auto) Camp # (Auto) Seg Neutrophils % Seg Neuts % (Manual) Lymphocytes % (Manual) Monocytes % (Manual) Basophils % (Manual) Seg Neutrophils # Seg Neutrophils # Man Lymphocytes # (Manual) Monocytes # (Manual) Eosinophils # (Manual) Basophils # (Manual) PT INR D-Dimer ABG pH POC ABG pCO2 POC ABG pO2 ABG pO2 ABG HCO3 ABG O2 Saturation ABG Base Excess ABG Hemoglobin ABG Oxyhemoglobin ABG Potassium ABG Glucose Oxyhemoglobin Carboxyhemoglobin Sodium 151 H Potassium Chloride Carbon Dioxide 37 H BUN Creatinine < 0.2 L Glucose 171 H POC Glucose 248 H Calcium Ferritin Total Bilirubin Alkaline Phosphatase Lactate Dehydrogenase Troponin T C-Reactive Protein Total Protein Albumin Prealbumin LDL Cholesterol Direct Arterial Blood Glucose Arterial Blood Ionized Calcium Urine WBC (Auto) 03/11/20 03/11/20 03/12/20 17:09 23:52 04:39 WBC 19.9 H RBC 3.16 L Hgb 8.9 L Hct 27.5 L MCV MCH RDW 15.7 H Plt Count Lymph % (Auto) 6.8 L Camp # (Auto) 1.2 H Seg Neutrophils % 86.0 H Seg Neuts % (Manual) Lymphocytes % (Manual) Monocytes % (Manual) Basophils % (Manual) Seg Neutrophils # 17.1 H Seg Neutrophils # Man Lymphocytes # (Manual) Monocytes # (Manual) Eosinophils # (Manual) Basophils # (Manual) PT INR D-Dimer ABG pH POC ABG pCO2 POC ABG pO2 ABG pO2 ABG HCO3 ABG O2 Saturation ABG Base Excess ABG Hemoglobin ABG Oxyhemoglobin ABG Potassium ABG Glucose Oxyhemoglobin Carboxyhemoglobin Sodium Potassium Chloride Carbon Dioxide BUN Creatinine Glucose POC Glucose 124 H 131 H Calcium Ferritin Total Bilirubin Alkaline Phosphatase Lactate Dehydrogenase Troponin T C-Reactive Protein Total Protein Albumin Prealbumin LDL Cholesterol Direct Arterial Blood Glucose Arterial Blood Ionized Calcium Urine WBC (Auto) 03/12/20 03/12/20 03/12/20 04:39 05:28 11:34 WBC RBC Hgb Hct MCV MCH RDW Plt Count Lymph % (Auto) Camp # (Auto) Seg Neutrophils % Seg Neuts % (Manual) Lymphocytes % (Manual) Monocytes % (Manual) Basophils % (Manual) Seg Neutrophils # Seg Neutrophils # Man Lymphocytes # (Manual) Monocytes # (Manual) Eosinophils # (Manual) Basophils # (Manual) PT INR D-Dimer ABG pH POC ABG pCO2 POC ABG pO2 ABG pO2 ABG HCO3 ABG O2 Saturation ABG Base Excess ABG Hemoglobin ABG Oxyhemoglobin ABG Potassium ABG Glucose Oxyhemoglobin Carboxyhemoglobin Sodium 147 H Potassium Chloride Carbon Dioxide 40 H BUN Creatinine < 0.2 L Glucose 175 H POC Glucose 167 H 144 H Calcium Ferritin Total Bilirubin Alkaline Phosphatase Lactate Dehydrogenase Troponin T C-Reactive Protein Total Protein Albumin Prealbumin LDL Cholesterol Direct Arterial Blood Glucose Arterial Blood Ionized Calcium Urine WBC (Auto) 03/12/20 03/12/20 03/13/20 17:32 23:57 05:57 WBC RBC Hgb Hct MCV MCH RDW Plt Count Lymph % (Auto) Camp # (Auto) Seg Neutrophils % Seg Neuts % (Manual) Lymphocytes % (Manual) Monocytes % (Manual) Basophils % (Manual) Seg Neutrophils # Seg Neutrophils # Man Lymphocytes # (Manual) Monocytes # (Manual) Eosinophils # (Manual) Basophils # (Manual) PT INR D-Dimer ABG pH POC ABG pCO2 POC ABG pO2 ABG pO2 ABG HCO3 ABG O2 Saturation ABG Base Excess ABG Hemoglobin ABG Oxyhemoglobin ABG Potassium ABG Glucose Oxyhemoglobin Carboxyhemoglobin Sodium Potassium Chloride Carbon Dioxide BUN Creatinine Glucose POC Glucose 141 H 137 H 161 H Calcium Ferritin Total Bilirubin Alkaline Phosphatase Lactate Dehydrogenase Troponin T C-Reactive Protein Total Protein Albumin Prealbumin LDL Cholesterol Direct Arterial Blood Glucose Arterial Blood Ionized Calcium Urine WBC (Auto) 03/13/20 03/13/20 03/13/20 12:28 14:14 18:39 WBC RBC Hgb Hct MCV MCH RDW Plt Count Lymph % (Auto) Camp # (Auto) Seg Neutrophils % Seg Neuts % (Manual) Lymphocytes % (Manual) Monocytes % (Manual) Basophils % (Manual) Seg Neutrophils # Seg Neutrophils # Man Lymphocytes # (Manual) Monocytes # (Manual) Eosinophils # (Manual) Basophils # (Manual) PT INR D-Dimer ABG pH POC ABG pCO2 POC ABG pO2 ABG pO2 ABG HCO3 ABG O2 Saturation ABG Base Excess ABG Hemoglobin ABG Oxyhemoglobin ABG Potassium ABG Glucose Oxyhemoglobin Carboxyhemoglobin Sodium Potassium Chloride Carbon Dioxide 39 H BUN Creatinine < 0.2 L Glucose 129 H POC Glucose 130 H 125 H Calcium Ferritin Total Bilirubin Alkaline Phosphatase Lactate Dehydrogenase Troponin T C-Reactive Protein Total Protein Albumin Prealbumin LDL Cholesterol Direct Arterial Blood Glucose Arterial Blood Ionized Calcium Urine WBC (Auto) 03/13/20 03/14/20 03/14/20 23:33 05:24 08:07 WBC 16.8 H RBC 2.81 L Hgb 7.9 L Hct 23.9 L MCV MCH RDW 15.9 H Plt Count Lymph % (Auto) Camp # (Auto) Seg Neutrophils % Seg Neuts % (Manual) 84.0 H Lymphocytes % (Manual) 10.0 L Monocytes % (Manual) Basophils % (Manual) Seg Neutrophils # Seg Neutrophils # Man 14.1 H Lymphocytes # (Manual) Monocytes # (Manual) Eosinophils # (Manual) Basophils # (Manual) PT INR D-Dimer ABG pH POC ABG pCO2 POC ABG pO2 ABG pO2 ABG HCO3 ABG O2 Saturation ABG Base Excess ABG Hemoglobin ABG Oxyhemoglobin ABG Potassium ABG Glucose Oxyhemoglobin Carboxyhemoglobin Sodium Potassium Chloride Carbon Dioxide BUN Creatinine Glucose POC Glucose 146 H 125 H Calcium Ferritin Total Bilirubin Alkaline Phosphatase Lactate Dehydrogenase Troponin T C-Reactive Protein Total Protein Albumin Prealbumin LDL Cholesterol Direct Arterial Blood Glucose Arterial Blood Ionized Calcium Urine WBC (Auto) 03/14/20 03/14/20 03/14/20 08:07 12:21 18:26 WBC RBC Hgb Hct MCV MCH RDW Plt Count Lymph % (Auto) Camp # (Auto) Seg Neutrophils % Seg Neuts % (Manual) Lymphocytes % (Manual) Monocytes % (Manual) Basophils % (Manual) Seg Neutrophils # Seg Neutrophils # Man Lymphocytes # (Manual) Monocytes # (Manual) Eosinophils # (Manual) Basophils # (Manual) PT INR D-Dimer ABG pH POC ABG pCO2 POC ABG pO2 ABG pO2 ABG HCO3 ABG O2 Saturation ABG Base Excess ABG Hemoglobin ABG Oxyhemoglobin ABG Potassium ABG Glucose Oxyhemoglobin Carboxyhemoglobin Sodium Potassium Chloride 97.0 L Carbon Dioxide 37 H BUN Creatinine < 0.2 L Glucose 129 H POC Glucose 109 H 142 H Calcium 8.3 L Ferritin Total Bilirubin Alkaline Phosphatase Lactate Dehydrogenase Troponin T C-Reactive Protein Total Protein Albumin Prealbumin LDL Cholesterol Direct Arterial Blood Glucose Arterial Blood Ionized Calcium Urine WBC (Auto) 03/14/20 03/15/20 03/15/20 23:57 05:46 08:06 WBC 19.7 H RBC 3.29 L Hgb 9.1 L Hct 28.0 L MCV MCH RDW 15.9 H Plt Count Lymph % (Auto) Camp # (Auto) Seg Neutrophils % Seg Neuts % (Manual) Lymphocytes % (Manual) Monocytes % (Manual) Basophils % (Manual) Seg Neutrophils # Seg Neutrophils # Man Lymphocytes # (Manual) Monocytes # (Manual) Eosinophils # (Manual) Basophils # (Manual) PT INR D-Dimer ABG pH POC ABG pCO2 POC ABG pO2 ABG pO2 ABG HCO3 ABG O2 Saturation ABG Base Excess ABG Hemoglobin ABG Oxyhemoglobin ABG Potassium ABG Glucose Oxyhemoglobin Carboxyhemoglobin Sodium Potassium Chloride Carbon Dioxide BUN Creatinine Glucose POC Glucose 157 H 118 H Calcium Ferritin Total Bilirubin Alkaline Phosphatase Lactate Dehydrogenase Troponin T C-Reactive Protein Total Protein Albumin Prealbumin LDL Cholesterol Direct Arterial Blood Glucose Arterial Blood Ionized Calcium Urine WBC (Auto) 03/15/20 03/15/20 03/15/20 08:06 12:44 18:09 WBC RBC Hgb Hct MCV MCH RDW Plt Count Lymph % (Auto) Camp # (Auto) Seg Neutrophils % Seg Neuts % (Manual) Lymphocytes % (Manual) Monocytes % (Manual) Basophils % (Manual) Seg Neutrophils # Seg Neutrophils # Man Lymphocytes # (Manual) Monocytes # (Manual) Eosinophils # (Manual) Basophils # (Manual) PT INR D-Dimer ABG pH POC ABG pCO2 POC ABG pO2 ABG pO2 ABG HCO3 ABG O2 Saturation ABG Base Excess ABG Hemoglobin ABG Oxyhemoglobin ABG Potassium ABG Glucose Oxyhemoglobin Carboxyhemoglobin Sodium 136 L Potassium Chloride 93.6 L Carbon Dioxide 37 H BUN Creatinine < 0.2 L Glucose 132 H POC Glucose 151 H 164 H Calcium Ferritin Total Bilirubin Alkaline Phosphatase Lactate Dehydrogenase Troponin T C-Reactive Protein Total Protein Albumin Prealbumin LDL Cholesterol Direct Arterial Blood Glucose Arterial Blood Ionized Calcium Urine WBC (Auto) 03/15/20 03/16/20 03/16/20 23:26 05:39 11:58 WBC RBC Hgb Hct MCV MCH RDW Plt Count Lymph % (Auto) Camp # (Auto) Seg Neutrophils % Seg Neuts % (Manual) Lymphocytes % (Manual) Monocytes % (Manual) Basophils % (Manual) Seg Neutrophils # Seg Neutrophils # Man Lymphocytes # (Manual) Monocytes # (Manual) Eosinophils # (Manual) Basophils # (Manual) PT INR D-Dimer ABG pH POC ABG pCO2 POC ABG pO2 ABG pO2 ABG HCO3 ABG O2 Saturation ABG Base Excess ABG Hemoglobin ABG Oxyhemoglobin ABG Potassium ABG Glucose Oxyhemoglobin Carboxyhemoglobin Sodium Potassium Chloride Carbon Dioxide BUN Creatinine Glucose POC Glucose 136 H 116 H 109 H Calcium Ferritin Total Bilirubin Alkaline Phosphatase Lactate Dehydrogenase Troponin T C-Reactive Protein Total Protein Albumin Prealbumin LDL Cholesterol Direct Arterial Blood Glucose Arterial Blood Ionized Calcium Urine WBC (Auto) 03/16/20 03/17/20 03/17/20 23:56 04:40 04:40 WBC 18.0 H RBC 3.33 L Hgb 9.5 L Hct 28.8 L MCV MCH RDW 16.4 H Plt Count 499 H Lymph % (Auto) Camp # (Auto) Seg Neutrophils % Seg Neuts % (Manual) 82.0 H Lymphocytes % (Manual) 8.0 L Monocytes % (Manual) Basophils % (Manual) Seg Neutrophils # Seg Neutrophils # Man 14.8 H Lymphocytes # (Manual) Monocytes # (Manual) 1.3 H Eosinophils # (Manual) Basophils # (Manual) 0.2 H PT INR D-Dimer ABG pH POC ABG pCO2 POC ABG pO2 ABG pO2 ABG HCO3 ABG O2 Saturation ABG Base Excess ABG Hemoglobin ABG Oxyhemoglobin ABG Potassium ABG Glucose Oxyhemoglobin Carboxyhemoglobin Sodium Potassium Chloride 97.7 L Carbon Dioxide 32 H BUN Creatinine < 0.2 L Glucose 114 H POC Glucose 131 H Calcium Ferritin Total Bilirubin Alkaline Phosphatase Lactate Dehydrogenase Troponin T C-Reactive Protein Total Protein Albumin Prealbumin LDL Cholesterol Direct Arterial Blood Glucose Arterial Blood Ionized Calcium Urine WBC (Auto) 03/18/20 03/18/20 03/18/20 00:21 05:21 11:55 WBC RBC Hgb Hct MCV MCH RDW Plt Count Lymph % (Auto) Camp # (Auto) Seg Neutrophils % Seg Neuts % (Manual) Lymphocytes % (Manual) Monocytes % (Manual) Basophils % (Manual) Seg Neutrophils # Seg Neutrophils # Man Lymphocytes # (Manual) Monocytes # (Manual) Eosinophils # (Manual) Basophils # (Manual) PT INR D-Dimer ABG pH POC ABG pCO2 POC ABG pO2 ABG pO2 ABG HCO3 ABG O2 Saturation ABG Base Excess ABG Hemoglobin ABG Oxyhemoglobin ABG Potassium ABG Glucose Oxyhemoglobin Carboxyhemoglobin Sodium Potassium Chloride Carbon Dioxide BUN Creatinine Glucose POC Glucose 124 H 138 H 119 H Calcium Ferritin Total Bilirubin Alkaline Phosphatase Lactate Dehydrogenase Troponin T C-Reactive Protein Total Protein Albumin Prealbumin LDL Cholesterol Direct Arterial Blood Glucose Arterial Blood Ionized Calcium Urine WBC (Auto) 03/18/20 03/18/20 03/19/20 17:03 23:58 05:24 WBC RBC Hgb Hct MCV MCH RDW Plt Count Lymph % (Auto) Camp # (Auto) Seg Neutrophils % Seg Neuts % (Manual) Lymphocytes % (Manual) Monocytes % (Manual) Basophils % (Manual) Seg Neutrophils # Seg Neutrophils # Man Lymphocytes # (Manual) Monocytes # (Manual) Eosinophils # (Manual) Basophils # (Manual) PT INR D-Dimer ABG pH POC ABG pCO2 POC ABG pO2 ABG pO2 ABG HCO3 ABG O2 Saturation ABG Base Excess ABG Hemoglobin ABG Oxyhemoglobin ABG Potassium ABG Glucose Oxyhemoglobin Carboxyhemoglobin Sodium Potassium Chloride Carbon Dioxide BUN Creatinine Glucose POC Glucose 128 H 128 H 115 H Calcium Ferritin Total Bilirubin Alkaline Phosphatase Lactate Dehydrogenase Troponin T C-Reactive Protein Total Protein Albumin Prealbumin LDL Cholesterol Direct Arterial Blood Glucose Arterial Blood Ionized Calcium Urine WBC (Auto) 03/19/20 03/19/20 03/19/20 08:05 08:05 11:56 WBC 16.8 H RBC 3.36 L Hgb 9.4 L Hct 28.8 L MCV MCH RDW 17.4 H Plt Count 567 H Lymph % (Auto) 7.8 L Camp # (Auto) 1.2 H Seg Neutrophils % 83.5 H Seg Neuts % (Manual) Lymphocytes % (Manual) Monocytes % (Manual) Basophils % (Manual) Seg Neutrophils # 14.1 H Seg Neutrophils # Man Lymphocytes # (Manual) Monocytes # (Manual) Eosinophils # (Manual) Basophils # (Manual) PT INR D-Dimer ABG pH POC ABG pCO2 POC ABG pO2 ABG pO2 ABG HCO3 ABG O2 Saturation ABG Base Excess ABG Hemoglobin ABG Oxyhemoglobin ABG Potassium ABG Glucose Oxyhemoglobin Carboxyhemoglobin Sodium Potassium Chloride Carbon Dioxide 36 H BUN Creatinine < 0.2 L Glucose 135 H POC Glucose 128 H Calcium Ferritin Total Bilirubin Alkaline Phosphatase Lactate Dehydrogenase Troponin T C-Reactive Protein Total Protein Albumin Prealbumin LDL Cholesterol Direct Arterial Blood Glucose Arterial Blood Ionized Calcium Urine WBC (Auto) 03/19/20 03/20/20 03/20/20 23:59 05:12 16:52 WBC RBC Hgb Hct MCV MCH RDW Plt Count Lymph % (Auto) Camp # (Auto) Seg Neutrophils % Seg Neuts % (Manual) Lymphocytes % (Manual) Monocytes % (Manual) Basophils % (Manual) Seg Neutrophils # Seg Neutrophils # Man Lymphocytes # (Manual) Monocytes # (Manual) Eosinophils # (Manual) Basophils # (Manual) PT INR D-Dimer ABG pH POC ABG pCO2 POC ABG pO2 ABG pO2 ABG HCO3 ABG O2 Saturation ABG Base Excess ABG Hemoglobin ABG Oxyhemoglobin ABG Potassium ABG Glucose Oxyhemoglobin Carboxyhemoglobin Sodium Potassium Chloride Carbon Dioxide BUN Creatinine Glucose POC Glucose 120 H 131 H 124 H Calcium Ferritin Total Bilirubin Alkaline Phosphatase Lactate Dehydrogenase Troponin T C-Reactive Protein Total Protein Albumin Prealbumin LDL Cholesterol Direct Arterial Blood Glucose Arterial Blood Ionized Calcium Urine WBC (Auto) 03/20/20 03/21/20 03/21/20 23:35 04:50 07:35 WBC 15.2 H RBC 3.39 L Hgb 9.4 L Hct 29.4 L MCV MCH RDW 17.6 H Plt Count 518 H Lymph % (Auto) Camp # (Auto) Seg Neutrophils % Seg Neuts % (Manual) 83.0 H Lymphocytes % (Manual) 10.0 L Monocytes % (Manual) Basophils % (Manual) 2.0 H Seg Neutrophils # Seg Neutrophils # Man 12.6 H Lymphocytes # (Manual) Monocytes # (Manual) Eosinophils # (Manual) Basophils # (Manual) 0.3 H PT INR D-Dimer ABG pH POC ABG pCO2 POC ABG pO2 ABG pO2 ABG HCO3 ABG O2 Saturation ABG Base Excess ABG Hemoglobin ABG Oxyhemoglobin ABG Potassium ABG Glucose Oxyhemoglobin Carboxyhemoglobin Sodium Potassium Chloride Carbon Dioxide BUN Creatinine Glucose POC Glucose 125 H 127 H Calcium Ferritin Total Bilirubin Alkaline Phosphatase Lactate Dehydrogenase Troponin T C-Reactive Protein Total Protein Albumin Prealbumin LDL Cholesterol Direct Arterial Blood Glucose Arterial Blood Ionized Calcium Urine WBC (Auto) 03/21/20 03/21/20 03/21/20 07:35 11:45 17:22 WBC RBC Hgb Hct MCV MCH RDW Plt Count Lymph % (Auto) Camp # (Auto) Seg Neutrophils % Seg Neuts % (Manual) Lymphocytes % (Manual) Monocytes % (Manual) Basophils % (Manual) Seg Neutrophils # Seg Neutrophils # Man Lymphocytes # (Manual) Monocytes # (Manual) Eosinophils # (Manual) Basophils # (Manual) PT INR D-Dimer ABG pH POC ABG pCO2 POC ABG pO2 ABG pO2 ABG HCO3 ABG O2 Saturation ABG Base Excess ABG Hemoglobin ABG Oxyhemoglobin ABG Potassium ABG Glucose Oxyhemoglobin Carboxyhemoglobin Sodium 136 L Potassium Chloride 97.7 L Carbon Dioxide 32 H BUN Creatinine < 0.2 L Glucose 103 H POC Glucose 126 H 120 H Calcium Ferritin Total Bilirubin Alkaline Phosphatase Lactate Dehydrogenase Troponin T C-Reactive Protein Total Protein Albumin Prealbumin LDL Cholesterol Direct Arterial Blood Glucose Arterial Blood Ionized Calcium Urine WBC (Auto) 03/22/20 03/22/20 03/22/20 05:09 06:34 06:34 WBC 17.5 H RBC 3.52 L Hgb 10.0 L Hct 30.7 L MCV MCH RDW 17.5 H Plt Count 499 H Lymph % (Auto) [place] # (Auto) Seg Neutrophils % Seg Neuts % (Manual) Lymphocytes % (Manual) Monocytes % (Manual) Basophils % (Manual) Seg Neutrophils # Seg Neutrophils # Man Lymphocytes # (Manual) Monocytes # (Manual) Eosinophils # (Manual) Basophils # (Manual) PT INR D-Dimer ABG pH POC ABG pCO2 POC ABG pO2 ABG pO2 ABG HCO3 ABG O2 Saturation ABG Base Excess ABG Hemoglobin ABG Oxyhemoglobin ABG Potassium ABG Glucose Oxyhemoglobin Carboxyhemoglobin Sodium Potassium Chloride 96.6 L Carbon Dioxide 38 H BUN Creatinine Glucose 139 H POC Glucose 125 H Calcium Ferritin Total Bilirubin Alkaline Phosphatase Lactate Dehydrogenase Troponin T C-Reactive Protein Total Protein Albumin Prealbumin LDL Cholesterol Direct Arterial Blood Glucose Arterial Blood Ionized Calcium Urine WBC (Auto) Chest x-ray: image reviewed Allied health notes reviewed: RT
[2020-03-22 08:33] LABS: BUN/Creatinine Ratio 75
[2020-03-22] MEDS: GLYCOPYRROLATE 2 MG TAB PO SCH ×3 (08:44→19:54)
[2020-03-22] MEDS: DOCUSATE SODIUM 100 MG/10 ML ORAL LIQD PO SCH (09:01)
[2020-03-22] MEDS: LANSOPRAZOLE 30 MG SOLUTAB FEEDTUBE SCH (09:01)
[2020-03-22] MEDS: TAMSULOSIN 0.4 MG CAP PO SCH (09:01)
[2020-03-22] MEDS: METOPROLOL TARTRATE 25 MG TAB PO SCH ×2 (09:01→22:27)
[2020-03-22 09:41] LABS: Total Cells Counted 100
[2020-03-22 09:42] LABS: Band Neutrophils # (Manual) 0.2 K/mm3; Basophils % (Manual) 0 % (0.0-1.8); Myelocytes # (Manual) 0.5 K/mm3; Platelet Estimate Consistent w Auto; RBC Morphology Normal
--- NOTE | 2020-03-22 13:02 | Progress Note ---
Assessment and Plan Assessment and plan: --Acute hypoxic hypercapnic respiratory failure; Intubated on mechanical ventilation. Etiology secondary to sepsis, ALS, multifocal pneumonia (Covid negative). --ALS --Elevated D-dimers; CTA chest, lower extremity venous Doppler both are negative Lovenox DVT prophylaxis --Bilateral pneumonia; probably community-acquired Versus atypical, empiric antibiotics Rocephin and Zithromax Cultures, check pro calcitonin --Sepsis secondary to pneumonia Leukocytosis, tachycardia, pneumonia on chest x-ray --Elevated troponin; Serial cardiac enzymes, serial EKGs Echocardiogram, cardiology consult if needed --Hypokalemia; replaced with KCl Monitor levels --Hyponatremia; IV fluids Closely monitor electrolytes --DVT prophylaxis; Lovenox Admit to ICU for close observation 02/25/2020. CTA of the chest reveals no PE but does illustrate the bilateral pneumonia. Doppler ultrasound also negative for DVT. Blood cultures are pending. Await COVID-19 testing. Patient currently requiring BiPAP IPAP 24/E PAP 6 with FiO2 of 25%. Continue O2 and BiPAP as clinically indicated. ID and pulmonary consulted. 02/26/2020. Blood cultures are negative x48 hours and Covid testing negative as well. Continue antibiotics per ID recommendations for community-acquired bilateral pneumonia. Cardiology consultation for elevated troponin. Check echocardiogram. 02/27/2020. Events of yesterday noted with asystole following V. fib arrest. Patient currently on AC mode rate 20, tidal volume 400, FiO2 50% and a PEEP of 6. Follow-up echocardiogram for elevated troponin. Cardiology suspects NSTEMI Type 2 in the setting of acute resp failure. Chest CTA and BLE Dopplers neg. we will discontinue Decadron given the Covid PCR is negative. 02/28/2020. I spoke with the sister Felisa Eli who is the power of physician neonatology regarding advanced directives and she instructed me that she would like to continue with aggressive care at this time. I informed her of the guarded prognosis and high mortality/morbidity and she voiced understanding. Patient currently with AC mode ventilation rate 18, tidal volume 400, FiO2 40% and a PEEP of 6. Continue antibiotics for pneumonia. ID previously consulted. Also consult neurology with regards to ALS. 02/29/2020; patient is intubated and on CPAP patient is alert and oriented. Patient has ALS. Dr. Álvarez spoke with his sister and she wants aggressive care. Continue antibiotics for pneumonia. Neurology consulted for ALS. Prognosis poor 03/01/2020; patient is intubated and on CPAP, patient is alert and oriented. I spoke with his 2 sisters about the management plan. 03/02/2020; patient is intubated and on CPAP. Patient was alert and oriented. I spoke with Dr. mohr and he thinks patient may need mechanical ventilation, likely his disease progressed. Dr. Flowers did debridement this morning. 03/03/2020; patient is intubated and on CPAP, patient was on trilogy and BiPAP at home. Patient has ALS. on spontaneous breathing trial. Patient is alert and oriented but quadriplegic. Patient has severe bilateral pneumonia and is on cefepime and Vanco, ID is following. Patient has sacral decubitus ulcer and debridement was done by Dr. Flowers and there is no osteomyelitis. 03/05. Patient still on broad-spectrum antibiotics. Status post sacral de cubitus ulcer debridements-no osteomyelitis. Patient is on AC 25/400/30% PEEP 5. No blood gas results today. 03/06. Plan for tracheostomy by surgery. Still remains intubated. Labs reviewed-sodium 150. Started on free water 200 every 8hr. trend sodium. 03/07: s/p trach placement today, patient placed back on mechanical ventilation with trach. Plan to resume tube feeding with NG tube. Continue to monitor vitals, monitor BMP. 03/08: Patient noted to have distended abdomen with low urinary output. Obtain bladder scan rule out urine retention, UA and urine culture, continue to follow clinically. 03/09: Patient noted to have low blood pressure with SBP as low as 70s. Ordered for 500 mils normal saline bolus. CT abdomen showed bladder outlet obstruction, urology consulted. 03/10: placed on drake by urology o/n, improved urine outpt. cont to monitor BMP. resuded TF - cont free water with TF. wean off from vent as tolerated. 03/11: Vitals stable. cont TF, wean off from vent as tolerated. start on 1/2 NS for hypernatremia - follow BMP 03/12: wean off vent as tolerated, plan for speech eval, cont Tf for now, cont iv fluid 03/13: unable to wean off from vent, unable to do speech therapy eval. will need PEG tube, cont supportive care for now, cont NG tube feeding 03/14: consulted GI for PEg placemnet, cont supportive care. remains on vent at night 03/15: Discussed with GI, plan for PEG tube placement possibly tomorrow. Continue supportive care and wean off from vent as tolerated. Hold Lovenox dose tonight. 03/16: family didnot consent for PEG placement yesterday. I spoke with the daughter today and she is now agreeable for PEG tube. I explained the necessity of the procedure with RN to the patient also and he nodded started on tube feeding, for the procedure. will cont supportive care. planned for PEG tube placement tomorrow. 03/17: s/p PEG placement today, patient tolerated well, cont supportive care 03/18: Started on tube feeding with new PEG tube, continue to wean off vent as tolerated 03/19: cont to monitor with supportive care, wean off vent as tolerated 03/20: Continue to wean off vent as tolerated -but failing weaning trial. Still requiring vent support at night. Currently on PEG tube for tube feed. 03/21. Pt with PSV trials with FiO@ 30%, PEEP 6, PS 10. Currently on PEG tube for tube feed. 03/22/2020. Continue PSV trials per pulmonary. Continue bronchodilators. Patient tolerating tube feedings. Continue Robinul for secretion control. The high probability of a clinically significant, sudden or life threatening de terioration of the [cardiac and respiratory] system(s) required my full and direct attention, intervention and personal management. The aggregate critical care time was [31] minutes. This time is in addition to time spent performing reported procedures but includes the following: [x] Data Review and interpretation [x] Patient assessment and monitoring of vital signs [x] Documentation [x] Medication orders and management History Interval history: 59-year-old male patient with significant past medical history of ALS, presented to ED with worsening shortness of breath since the morning [employer]. Patient was on a trilogy machine for breathing 18/11. EMS arrived, patient had O2 sats in the 80s. EMS attempted to place patient on their CPAP machine, however patient did not tolerate. Patient was admitted to the ICU with diagnosis of acute hypoxic respiratory failure and placed on BiPAP. Patient initially tolerated but later deteriorated with respiratory status. Therefore, patient was intubated on 02/26/2020 at 1500. Patient now on mechanical ventilation in the ICU. Hospitalist Physical - Constitutional Vitals: Temp Pulse Resp BP Pulse Ox 99 F 102 H 12 95/52 98 03/22/20 12:00 03/22/20 12:45 03/22/20 12:45 03/22/20 12:45 03/22/20 12:45 General appearance: Present: mild distress, other (Intubated on mechanical ventilation) - EENT Eyes: Present: PERRL, EOM intact ENT: hearing intact, clear oral mucosa, dentition normal - Neck Neck: Present: supple, normal ROM - Respiratory Respiratory effort: normal Respiratory: bilateral: CTA - Cardiovascular Rhythm: regular Heart Sounds: Present: S1 & S2. Absent: gallop, rub - Extremities Extremities: no ischemia, No edema, Full ROM - Abdominal General gastrointestinal: soft, non-tender, non-distended, normal bowel sounds - Integumentary Integumentary: Present: clear, warm, dry - Neurologic Neurologic: CNII-XII intact, moves all extremities HEART Score - HEART Score Troponin: Troponin T 0.034 ng/mL (0.00-0.029) H D 02/24/20 19:35 Results - Labs CBC & Chem 7: 03/22/20 06:34 03/22/20 06:34 Labs: Laboratory Last Values WBC 17.5 K/mm3 (4.5-11.0) H 03/22/20 06:34 RBC 3.52 M/mm3 (3.65-5.03) L 03/22/20 06:34 Hgb 10.0 gm/dl (11.8-15.2) L 03/22/20 06:34 Hct 30.7 % (35.5-45.6) L 03/22/20 06:34 MCV 87 fl (84-94) 03/22/20 06:34 MCH 29 pg (28-32) 03/22/20 06:34 MCHC 33 % (32-34) 03/22/20 06:34 RDW 17.5 % (13.2-15.2) H 03/22/20 06:34 Plt Count 499 K/mm3 (140-440) H 03/22/20 06:34 Lymph % (Auto) 7.8 % (13.4-35.0) L 03/19/20 08:05 [place] % (Auto) 7.3 % (0.0-7.3) 03/19/20 08:05 Eos % (Auto) 1.0 % (0.0-4.3) 03/19/20 08:05 Baso % (Auto) 0.7 % (0.0-1.8) 03/12/20 04:39 Lymph # (Auto) 1.3 K/mm3 (1.2-5.4) 03/19/20 08:05 [place] # (Auto) 1.2 K/mm3 (0.0-0.8) H 03/19/20 08:05 Eos # (Auto) 0.2 K/mm3 (0.0-0.4) 03/19/20 08:05 Baso # (Auto) 0.1 K/mm3 (0.0-0.1) 03/19/20 08:05 Add Manual Diff Complete 03/22/20 06:34 Total Counted 100 03/22/20 06:34 Seg Neutrophils % 83.5 % (40.0-70.0) H 03/19/20 08:05 Seg Neuts % (Manual) 80.0 % (40.0-70.0) H 03/22/20 06:34 Band Neutrophils % 1.0 % 03/22/20 06:34 Lymphocytes % (Manual) 10.0 % (13.4-35.0) L 03/22/20 06:34 Reactive Lymphs % (Man) 0 % 03/22/20 06:34 Monocytes % (Manual) 4.0 % (0.0-7.3) 03/22/20 06:34 Eosinophils % (Manual) 1.0 % (0.0-4.3) 03/22/20 06:34 Basophils % (Manual) 0 % (0.0-1.8) 03/22/20 06:34 Metamyelocytes % 1.0 % 03/22/20 06:34 Myelocytes % 3.0 % 03/22/20 06:34 Promyelocytes % 0 % 03/22/20 06:34 Blast Cells % 0 % 03/22/20 06:34 Nucleated RBC % Not Reportable 03/22/20 06:34 Seg Neutrophils # 14.1 K/mm3 (1.8-7.7) H 03/19/20 08:05 Seg Neutrophils # Man 14.0 K/mm3 (1.8-7.7) H 03/22/20 06:34 Band Neutrophils # 0.2 K/mm3 03/22/20 06:34 Lymphocytes # (Manual) 1.8 K/mm3 (1.2-5.4) 03/22/20 06:34 Abs React Lymphs (Man) 0.0 K/mm3 03/22/20 06:34 Monocytes # (Manual) 0.7 K/mm3 (0.0-0.8) 03/22/20 06:34 Eosinophils # (Manual) 0.2 K/mm3 (0.0-0.4) 03/22/20 06:34 Basophils # (Manual) 0.0 K/mm3 (0.0-0.1) 03/22/20 06:34 Metamyelocytes # 0.2 K/mm3 03/22/20 06:34 Myelocytes # 0.5 K/mm3 03/22/20 06:34 Promyelocytes # 0.0 K/mm3 03/22/20 06:34 Blast Cells # 0.0 K/mm3 03/22/20 06:34 WBC Morphology Not Reportable 03/22/20 06:34 Hypersegmented Neuts Not Reportable 03/22/20 06:34 Hyposegmented Neuts Not Reportable 03/22/20 06:34 Hypogranular Neuts Not Reportable 03/22/20 06:34 Smudge Cells Not Reportable 03/22/20 06:34 Toxic Granulation Not Reportable 03/22/20 06:34 Toxic Vacuolation Not Reportable 03/22/20 06:34 Dohle Bodies Not Reportable 03/22/20 06:34 Pelger-Huet Anomaly Not Reportable 03/22/20 06:34 Robert Rods Not Reportable 03/22/20 06:34 Platelet Estimate Consistent w auto 03/22/20 06:34 Clumped Platelets Not Reportable 03/22/20 06:34 Plt Clumps, EDTA Not Reportable 03/22/20 06:34 Large Platelets Not Reportable 03/22/20 06:34 Giant Platelets Not Reportable 03/22/20 06:34 Platelet Satelliting Not Reportable 03/22/20 06:34 Plt Morphology Comment Not Reportable 03/22/20 06:34 RBC Morphology Normal 03/22/20 06:34 Dimorphic RBCs Not Reportable 03/22/20 06:34 Polychromasia Not Reportable 03/22/20 06:34 Hypochromasia Not Reportable 03/22/20 06:34 Poikilocytosis Not Reportable 03/22/20 06:34 Anisocytosis Not Reportable 03/22/20 06:34 Microcytosis Not Reportable 03/22/20 06:34 Macrocytosis Not Reportable 03/22/20 06:34 Spherocytes Not Reportable 03/22/20 06:34 Pappenheimer Bodies Not Reportable 03/22/20 06:34 Sickle Cells Not Reportable 03/22/20 06:34 Target Cells Not Reportable 03/22/20 06:34 Tear Drop Cells Not Reportable 03/22/20 06:34 Ovalocytes Not Reportable 03/22/20 06:34 Stomatocytes Few 03/17/20 04:40 Helmet Cells Not Reportable 03/22/20 06:34 Gregory-Kayenta Bodies Not Reportable 03/22/20 06:34 [place] Rings Not Reportable 03/22/20 06:34 Riaz Cells Not Reportable 03/22/20 06:34 Bite Cells Not Reportable 03/22/20 06:34 Crenated Cell Not Reportable 03/22/20 06:34 Elliptocytes Not Reportable 03/22/20 06:34 Acanthocytes (Spur) Not Reportable 03/22/20 06:34 Rouleaux Not Reportable 03/22/20 06:34 Hemoglobin C Crystals Not Reportable 03/22/20 06:34 Schistocytes Not Reportable 03/22/20 06:34 Malaria parasites Not Reportable 03/22/20 06:34 Colton Bodies Not Reportable 03/22/20 06:34 Hem Pathologist Commnt No 03/22/20 06:34 PT 15.6 Sec. (12.2-14.9) H 02/24/20 09:19 INR 1.21 (0.87-1.13) H 02/24/20 09:19 APTT 25.4 Sec. (24.2-36.6) 02/24/20 09:19 D-Dimer 1311.96 ng/mlDDU (0-234) H 02/24/20 09:19 ABG pH 7.371 (7.320-7.450) 03/08/20 12:34 POC ABG pCO2 63.1 mmHg (32.0-48.0) H 03/08/20 12:34 ABG pCO2 60.1 mm Hg 03/06/20 04:34 POC ABG pO2 90.5 mmHg (83-108) 03/08/20 12:34 ABG pO2 88.6 mm Hg (80.0-90.0) 03/06/20 04:34 POC ABG HCO3 35.7 03/08/20 12:34 ABG HCO3 37.9 mmol/L (20.0-26.0) H 03/06/20 04:34 ABG O2 Saturation 97.0 % (95.0-99.0) 03/06/20 04:34 ABG O2 Content 14.3 (0.0-44) 03/06/20 04:34 POC ABG Base Excess 8.7 03/08/20 12:34 ABG Base Excess 11.4 mmol/L (-2.0-3.0) H 03/06/20 04:34 ABG Hemoglobin 10.9 (12.0-17.5) L 03/08/20 12:34 ABG Oxyhemoglobin 95.9 (94-98) 03/08/20 12:34 ABG Carboxyhemoglobin 1.7 % (0.0-5.0) 03/06/20 04:34 ABG Methemoglobin 0.3 (0.0-1.5) 03/08/20 12:34 ABG Sodium 143.6 mmol/L (136.0-145.0) 03/08/20 12:34 ABG Potassium 3.8 mmol/L (3.40-4.50) 03/08/20 12:34 ABG Chloride 102.0 mmol/L (98-107) 03/08/20 12:34 ABG Glucose 176 mg/dL (65-95) H 03/08/20 12:34 Oxyhemoglobin 94.7 % (95.0-99.0) L 03/06/20 04:34 Carboxyhemoglobin 0.7 (0.5-1.5) 03/08/20 12:34 FiO2 30 03/08/20 12:34 Sodium 140 mmol/L (137-145) 03/22/20 06:34 Potassium 4.3 mmol/L (3.6-5.0) 03/22/20 06:34 Chloride 96.6 mmol/L (98-107) L 03/22/20 06:34 Carbon Dioxide 38 mmol/L (22-30) H 03/22/20 06:34 Anion Gap 10 mmol/L 03/22/20 06:34 BUN 15 mg/dL (9-20) 03/22/20 06:34 Creatinine < 0.2 mg/dL (0.8-1.3) L 03/22/20 06:34 Estimated GFR > 60 ml/min 03/22/20 06:34 BUN/Creatinine Ratio 75 % 03/22/20 06:34 Glucose 139 mg/dL (75-100) H 03/22/20 06:34 POC Glucose 135 mg/dL (70-105) H 03/22/20 11:45 Lactic Acid 1.00 mmol/L (0.7-2.0) 02/24/20 12:07 Calcium 8.8 mg/dL (8.4-10.2) 03/22/20 06:34 Phosphorus 3.30 mg/dL (2.5-4.5) 03/20/20 14:18 Magnesium 2.00 mg/dL (1.7-2.3) 03/20/20 14:18 Ferritin 1715.0 ng/mL (30.0-300.0) H 02/24/20 10:01 Total Bilirubin 0.60 mg/dL (0.1-1.2) 03/08/20 06:43 AST 34 units/L (5-40) 03/08/20 06:43 ALT 14 units/L (7-56) 03/08/20 06:43 Alkaline Phosphatase 56 units/L (35-129) 03/08/20 06:43 Lactate Dehydrogenase 303 units/L (91-180) H 02/24/20 09:19 Total Creatine Kinase 101 units/L (55-170) 02/24/20 19:35 CK-MB (CK-2) 3.5 ng/mL (0.0-4.0) 02/24/20 19:35 CK-MB (CK-2) Rel Index 3.4 (0-4) 02/24/20 19:35 Troponin T 0.034 ng/mL (0.00-0.029) H D 02/24/20 19:35 C-Reactive Protein 4.70 mg/dL (0.00-1.30) H 02/28/20 11:05 NT-Pro-B Natriuret Pep 48.30 pg/mL (0-900) 02/24/20 09:19 Total Protein 5.9 g/dL (6.3-8.2) L 03/08/20 06:43 Albumin 3.2 g/dL (3.9-5) L 03/08/20 06:43 Albumin/Globulin Ratio 1.2 % 03/08/20 06:43 Prealbumin 0.090 g/L (0.200-0.400) L 02/28/20 12:54 Triglycerides 60 mg/dL (2-149) 02/24/20 09:19 Cholesterol 104 mg/dL (50-199) 02/24/20 09:19 LDL Cholesterol Direct 41 mg/dL (50-130) L 02/24/20 09:19 HDL Cholesterol 45 mg/dL (40-59) 02/24/20 09:19 Cholesterol/HDL Ratio 2.31 % 02/24/20 09:19 Procalcitonin 0.16 ng/mL (<0.15) 03/09/20 08:35 Arterial Blood Glucose 176 mg/dL (65-95) H 03/08/20 12:34 Arterial Blood Ionized Calcium 4.5 mg/dL (4.6-5.3) L 03/08/20 12:34 Urine Color Yellow (Yellow) 03/08/20 08:57 Urine Turbidity Clear (Clear) 03/08/20 08:57 Urine pH 6.0 (5.0-7.0) 03/08/20 08:57 Ur Specific [place] 1.017 (1.003-1.030) 03/08/20 08:57 Urine Protein <15 mg/dl mg/dL (Negative) 03/08/20 08:57 Urine Glucose (UA) Neg mg/dL (Negative) 03/08/20 08:57 Urine Ketones Neg mg/dL (Negative) 03/08/20 08:57 Urine Blood Neg (Negative) 03/08/20 08:57 Urine Nitrite Neg (Negative) 03/08/20 08:57 Urine Bilirubin Neg (Negative) 03/08/20 08:57 Urine Urobilinogen < 2.0 mg/dL (<2.0) 03/08/20 08:57 Ur Leukocyte Esterase Neg (Negative) 03/08/20 08:57 Urine WBC (Auto) 10.0 /HPF (0.0-6.0) H 03/08/20 08:57 Urine RBC (Auto) 13.0 /HPF (0.0-6.0) 03/08/20 08:57 U Epithel Cells (Auto) < 1.0 /HPF (0-13.0) 03/08/20 08:57 Urine Bacteria (Auto) 2+ /HPF (Negative) 03/08/20 08:57 Urine Mucus Few /HPF 03/08/20 08:57 Urine Yeast (Budding) 3+ /HPF 03/08/20 08:57 Vancomycin Trough 8.0 ug/mL (5.0-20.0) 03/04/20 08:59 Coronavirus (PCR) Negative (Negative) 02/25/20 09:03 - Diagnostic Impressions Diagnostic Impressions: Echocardiogram 02/26/20 10:41 Transthoracic Echocardiogram Indication: Elevated Trop BP: 116/75 HR: 85 Conclusions *Global left ventricular wall motion and contractility are within normal limits. *The estimated ejection fraction is 50-55%. *Abnormal left ventricular diastolic filling is observed, consistent with impaired relaxation. *There is no pericardial effusion. Findings Left Ventricle: The left ventricular chamber size is normal. Global left ventricular wall motion and contractility are within normal limits. Global left ventricular systolic function is normal. The estimated ejection fraction is 50-55%. Abnormal left ventricular diastolic filling is observed, consistent with impaired relaxation. Left Atrium: The left atrial chamber size is normal. Right Ventricle: The right ventricular cavity size is normal. Right Atrium: The right atrial cavity size is normal. Aortic Valve: Mild aortic leaflet calcification is visualized. There is no evidence of aortic regurgitation. Mitral Valve: The mitral valve leaflets are mildly thickened. There is no evidence of mitral regurgitation. Tricuspid Valve: The tricuspid valve leaflets are normal. There is trace tricuspid regurgitation. The right ventricular systolic pressure is calculated at 29 mmHg. Pulmonic Valve: The pulmonic valve is not well visualized. Pericardium: There is no pericardial effusion. Aorta: The aorta appears normal. Venous: The inferior vena cava is dilated. There is less than 50% respiratory change in the inferior vena cava dimension. Measurements Chambers 2D Name Value Normal Range IVSd (2D) 0.97 cm (0.6 - 1.1) LVPWd (2D) 0.93 cm (0.6 - 1.1) LVIDd (2D) 4 cm (3.7 - 5.6) LVIDs (2D) 2.73 cm (2 - 3.8) LV FS (2D) 31.67 % - EF Teichholz (2D) 60.23 % - Ao root diameter (2D) 3.51 cm (2 - 3.7) Volumes/Mass Name Value Normal Range LA ESV SP 4CH (A/L) 8.43 ml - LA ESV SP 2CH (A/L) 18.89 ml - LA ESV BP (A/L) 13.02 ml - LA ESV BP (A/L) index 8.8 ml/m2 - LA ESV SP 4CH (MOD) 7.22 ml - LA ESV SP 2CH (MOD) 18.15 ml - LA ESV BP (MOD) 11.47 ml - LA ESV BP (MOD) index 7.75 ml/m2 - Diastolic/Systolic Function Name Value Normal Range MV E-wave Vmax 0.51 m/sec - MV deceleration time 180.22 msec - MV A-wave Vmax 0.62 m/sec - MV E:A ratio 0.82 ratio - Aortic Valve Name Value Normal Range AV Vmax 1.17 m/sec - AV VTI 19.71 cm - AV peak gradient 5.44 mmHg - AV mean gradient 3.38 mmHg - LVOT diameter 2.26 cm - LVOT Vmax 0.89 m/sec - LVOT VTI 13.72 cm - LVOT peak gradient 3.17 mmHg - LVOT mean gradient 1.67 mmHg - SV LVOT 55.03 ml - SHARAD (continuity Vmax) 3.06 cm2 - SHARAD (continuity VTI) 2.79 cm2 - Tricuspid Valve Name Value Normal Range TR Vmax 2.3 m/sec - TR peak gradient 21 mmHg - RAP 8 mmHg - RVSP 29 mmHg - IVC diameter 2.59 cm (1.2 - 2.3) Pulmonic Valve/Qp:Qs Name Value Normal Range PV acceleration time 68.51 msec - Drake/IV: Voiding Method Indwelling Catheter IV Catheter Type [Right Hand] Peripheral IV IV Catheter Type [Left Wrist] Peripheral IV IV Catheter Type [Right Peripheral IV Forearm] IV Catheter Type [Right Triple Lumen Cath Internal Jugular] IV Catheter Type [Left Forearm INT / Saline Lock ] IV Catheter Type [Right Triple Lumen Cath Femoral] IV Catheter Type [Right INT / Saline Lock Antecubital] Active Medications - Current Medications Current Medications: Generic Name Dose Route Start Last Admin Trade Name Freq PRN Reason Stop Dose Admin Acetaminophen 650 mg 02/24/20 15:13 03/08/20 00:10 Tylenol PO 650 mg Q4H PRN Administration Pain, Mild (1-3) Albuterol 2.5 mg 02/24/20 15:13 Proventil IH Q4HRT PRN Shortness Of Breath Lipase/Protease/Amylase 1 each 02/26/20 11:16 Pancreedy Rubio 10,500 Unit FEEDTUBE PRN PRN For Clogged Feeding Tube Bisacodyl 10 mg 03/12/20 18:00 03/15/20 17:50 Dulcolax AR 10 mg QDAY PRN Administration Bowel Movement Docusate Sodium 100 mg 03/12/20 22:00 03/22/20 09:01 Colace PO 100 mg BID ALISA Administration Enoxaparin Sodium 40 mg 03/20/20 22:00 03/21/20 22:34 Enoxaparin SUB-Q 40 mg QDAY@2200 ALISA Administration Protocol Glycopyrrolate 2 mg 03/08/20 20:00 03/22/20 08:44 Glycopyrrolate PO 2 mg TID ALISA Administration Lansoprazole 30 mg 02/28/20 10:00 03/22/20 09:01 Prevacid Solutab FEEDTUBE 30 mg QDAY ALISA Administration Metoprolol Tartrate 12.5 mg 02/24/20 22:00 03/22/20 09:01 Metoprolol PO 12.5 mg BID ALISA Administration Morphine Sulfate 2 mg 02/29/20 16:42 03/20/20 19:07 Morphine IV 2 mg Q4H PRN Administration Pain, Moderate (4-6) Polyethylene Glycol 17 gm 03/12/20 22:00 03/21/20 22:33 Miralax 3350 PO 17 gm QHS ALISA Administration Scopolamine 1 each 03/03/20 14:00 03/21/20 10:36 Transderm-Scop TD 1 each Q3D ALISA Administration Simple Syrup 15 ml 02/26/20 11:16 Simple Syrup FEEDTUBE PRN PRN Hypoglycemia Simple Syrup 30 ml 02/26/20 11:16 Simple Syrup FEEDTUBE PRN PRN Hypoglycemia Sodium Bicarbonate 325 mg 02/26/20 11:16 Sodium Bicarbonate FEEDTUBE PRN PRN For Clogged Feeding Tube Tamsulosin HCl 0.4 mg 03/09/20 18:00 03/22/20 09:01 Flomax PO 0.4 mg QDAY ALISA Administration Nutrition/Malnutrition Assess - Dietary Evaluation Nutrition/Malnutrition Findings: Nutrition Notes Start: 02/26/20 10:40 Freq: Status: Active Protocol: Document 03/21/20 13:36 LP (Rec: 03/21/20 13:41 LP [id number]) Nutrition Notes Initial or Follow up Reassessment Current Diagnosis Decubitus(Pressure Ulcer), Sepsis,Respiratory Failure Other Pertinent Diagnosis COVID-19 (-), ALS, pneumonia, Hip/buttock PU Current Diet Vital AF 1.2 at 75ml/hr (goal rate) Labs/Tests Na 136 Pertinent Medications Reviewed Height 6 ft Weight 66.4 kg [place] Body Weight (kg) 80.90 BMI 19.8 Weight Status Appropriate Subjective/Other Information Pt continues tolerating TF at goal rate. PEG placed. Percent of energy/protein needs met: 100%/100% Burn Absent Trauma Absent GI Symptoms None Skin Integrity/Comment Pressure Ulcer Stage 2 Current % PO Negligible Minimum of two criteria Yes Body Fat Depletion Mild depletion (non-severe) Muscle Mass Mild Depletion (non-severe) Reduced Nut Former Strength Measurably Reduced (severe) #3 Nutrition Diagnosis Malnutrition Diagnosis Progress(for reassessment Continues documentation) #2 Nutrition Diagnosis Inadequate oral intake Diagnosis Progress(for reassessment Continues documentation) #1 Nutrition Diagnosis Increased nutrient needs ( specify in comment below) Diagnosis Progress(for reassessment Continues documentation) Is patient on ventilator? Yes Is Patient Ambulatory and/or Out of Bed No REE-([facility]-confined to bed) 1825.272 Kcal/Kg value to use for calculation 35 Approximate Energy Requirements Using 2324 kcal/Kg Calculation Used for Recommendations Kcal/kg Additional Notes Protein needs: 80-133 g (1.2-2 g/ kg ABW) Fluid: 1ml/kcal Nutrition Intervention Change Diet Order: Continue TF Nutrition Support: Vital AF 1.2 at 75ml/hr. Flush 200ml q4h For hyponatremia, flush 150 mL q4h Kcal 2,160 Protein (gm) 135 Fluid (mL) 1,460 Add Supplement/Snack (indicate name/kcal Will BID /protein ) Provides kCal: 190 Provides Protein (gm) 5 Goal #1 Meet at least 80% of energy and protein needs via TF Goal #2 Wound healing Anticipated Discharge Needs: Unable to determine at this time Follow-Up By: 03/28/20 Additional Comments Follow for stable TF
[2020-03-22] MEDS: MORPHINE 2 MG/1 ML INJ IV PRN (16:31)
[2020-03-22 19:09] LABS: Chol/HDL Ratio 2.6 %
[2020-03-22] MEDS ORDERED: SODIUM CHLORIDE 0.9% 1000 ML 1,000 ML IV ONE (20:01)
[2020-03-22] MEDS: POLYETHYLENE GLYCOL 3350 17 GM POWDER PO SCH (22:29)
[2020-03-22] MEDS: ENOXAPARIN 40 MG/0.4 ML INJ SUB-Q SCH (22:29)
[2020-03-23] MEDS: GLYCOPYRROLATE 2 MG TAB PO SCH ×3 (08:07→22:58)
[2020-03-23] MEDS: DOCUSATE SODIUM 100 MG/10 ML ORAL LIQD PO SCH ×3 (08:08→22:58)
[2020-03-23] MEDS: METOPROLOL TARTRATE 25 MG TAB PO SCH ×2 (09:07→22:59)
[2020-03-23] MEDS: TAMSULOSIN 0.4 MG CAP PO SCH (09:08)
[2020-03-23] MEDS: LANSOPRAZOLE 30 MG SOLUTAB FEEDTUBE SCH (09:08)
--- NOTE | 2020-03-23 09:56 | Progress Note ---
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 Respiratory Failure Severe Sepsis with Shock Bilateral Pneumonia (Possible aspiration) History of ALS on Trilogy Oropharyngeal Dysphagia PUI-COVID Acute toxic metabolic encephalopathy Elevated D-dimer Elevated troponin possibly type 2 ischemia - asked RT to begin t-piece trials as tolerated - rest on AC overnight for now - PSV if fails t-piece trial during the day - continue to optimize electrolytes (prn BMP, Mg & PO4) - LTAC evaluation requested - continue care as below otherwise; - repeat CXR prn +/- bronchoscopy for mucus plugging / large volume atelectasis - continue to rest on AC qhs - LTAC evaluation is appropriate - continue Robinul & scopolamine for secretion control - prn electrolytes and optimize K+ & Mg 2+ for best respiratory muscle function - wound care per RN/WCN - continue Scopolamine patch for secretion control - wean supplemental oxygen for target O2 sat's > 92% acutely - bronchodilators with pulmonary hygiene per RT - VAP bundle addressed - continue lung protective strategies - continue bronchodilators with pulmonary hygiene per RT - wean per pulmonary driven protocols otherwise - sedation prn for target RASS 0 to -1 - s/p empiric antiinfectives per ID rec's (Rocephin and Zithromax) - s/p COVID-19 isolation (Airborne & Contact) - empiric Dexamethasone - follow COVID-19 test results (negative) - trend inflammatory markers to aid clinical decision making - enteral nutrition at goal rate as tolerated - Aspiration precautions - accuchecks with glycemic control per SSI (While critically ill target blood glucose of 140-180 mg/dL; avoid hypoglycemia) - avoid nephrotoxins, renally dose all medications - avoid benzodiazepine's, reduce the possibility of delirium - prn analgesia per CPOT score - Maintenance of sleep-wake cycle, avoid delirium - aspiration precautions - G.I. & VTE prophylaxis - PT/OT/ROM exercises - mobility protocols for pressure ulcer prophylaxis - Monitor hemodynamics closely - continue other care per attending / other consultants - discharge planning ongoing concurrently .... Re-evaluate in am & prn CONDITION: CRITICAL PROGNOSIS: GUARDED CODE STATUS: FULL CODE The high probability of a clinically significant, sudden or life-threatening deterioration of the [respiratory, cardiovascular & neurologic] system(s) req uired my full and direct attention, intervention and personal management. The aggregate critical care time was [33] minutes without overlap. Time includes spent on; [x] Data Review and interpretation [x] Patient assessment and monitoring of vital signs [x] Documentation [x] Medication orders and management Subjective Date of service: 03/23/20 Principal diagnosis: Ac on Ch Hypercapnic & hypoxemic Resp Failure; Severe Sepsis; Jamar PNA; ALS Interval history: Patient is seen today for: Acute on Chronic Hypercapnic & hypoxemic Respiratory Failure; Severe Sepsis with Shock; Bilateral Pneumonia (Possible aspiration); History of ALS on Trilogy; PUI-COVID; Acute toxic metabolic encephalopathy Seen and examined at bedside; 24hour events reviewed; nursing and respiratory care staff consulted; no adverse overnight events reported to me; resting in bed; remains on MVS; denies acute chest pain or increased SOB; no N/V/F/C; on PSV trial Objective Vital Signs - 12hr 03/22/20 03/22/20 03/22/20 22:00 22:15 22:27 Temperature Pulse Rate 111 H 107 H 112 H Pulse Rate [ From Monitor] Respiratory 19 17 Rate Blood Pressure 111/77 111/77 111/77 O2 Sat by Pulse 98 97 Oximetry 03/22/20 03/22/20 03/22/20 22:30 22:45 23:00 Temperature Pulse Rate 113 H 107 H 103 H Pulse Rate [ From Monitor] Respiratory 21 19 18 Rate Blood Pressure 111/75 111/75 106/79 O2 Sat by Pulse 96 98 90 Oximetry 03/22/20 03/22/20 03/22/20 23:15 23:30 23:45 Temperature Pulse Rate 98 H 95 H 95 H Pulse Rate [ From Monitor] Respiratory 17 15 14 Rate Blood Pressure 106/79 109/71 109/71 O2 Sat by Pulse 91 97 97 Oximetry 03/23/20 03/23/20 03/23/20 00:00 00:15 00:30 Temperature 99.1 F Pulse Rate 98 H 98 H 95 H Pulse Rate [ 106 H From Monitor] Respiratory 17 14 14 Rate Blood Pressure 107/73 107/73 111/76 O2 Sat by Pulse 98 98 98 Oximetry 03/23/20 03/23/20 03/23/20 00:45 01:00 01:15 Temperature Pulse Rate 99 H 98 H 98 H Pulse Rate [ From Monitor] Respiratory 16 13 14 Rate Blood Pressure 111/76 111/75 111/76 O2 Sat by Pulse 100 99 99 Oximetry 03/23/20 03/23/20 03/23/20 01:30 01:45 02:00 Temperature Pulse Rate 101 H 101 H 102 H Pulse Rate [ From Monitor] Respiratory 15 19 16 Rate Blood Pressure 113/79 111/75 120/78 O2 Sat by Pulse 98 98 98 Oximetry 03/23/20 03/23/20 03/23/20 02:15 02:30 02:45 Temperature Pulse Rate 98 H 108 H 99 H Pulse Rate [ From Monitor] Respiratory 13 16 12 Rate Blood Pressure 120/78 106/76 106/76 O2 Sat by Pulse 98 99 98 Oximetry 03/23/20 03/23/20 03/23/20 03:00 03:15 03:30 Temperature Pulse Rate 91 H 109 H 96 H Pulse Rate [ From Monitor] Respiratory 12 22 14 Rate Blood Pressure 107/72 106/76 112/78 O2 Sat by Pulse 98 100 99 Oximetry 03/23/20 03/23/20 03/23/20 03:45 04:00 04:14 Temperature 98.9 F Pulse Rate 105 H 105 H 113 H Pulse Rate [ 107 H From Monitor] Respiratory 21 16 Rate Blood Pressure 112/78 119/83 119/83 O2 Sat by Pulse 98 98 98 Oximetry 03/23/20 03/23/20 03/23/20 04:15 04:30 04:45 Temperature Pulse Rate 114 H 95 H 103 H Pulse Rate [ From Monitor] Respiratory 26 H 12 17 Rate Blood Pressure 119/83 116/77 116/77 O2 Sat by Pulse 98 98 99 Oximetry 03/23/20 03/23/20 03/23/20 05:00 05:15 05:30 Temperature Pulse Rate 109 H 86 94 H Pulse Rate [ From Monitor] Respiratory 24 12 14 Rate Blood Pressure 119/84 119/84 115/76 O2 Sat by Pulse 99 98 98 Oximetry 03/23/20 03/23/20 03/23/20 05:45 06:00 06:15 Temperature Pulse Rate 89 106 H 103 H Pulse Rate [ From Monitor] Respiratory 12 23 13 Rate Blood Pressure 115/76 110/77 110/77 O2 Sat by Pulse 98 99 96 Oximetry 03/23/20 03/23/20 03/23/20 06:30 06:45 07:00 Temperature Pulse Rate 96 H 108 H 99 H Pulse Rate [ From Monitor] Respiratory 15 16 16 Rate Blood Pressure 116/74 116/74 115/82 O2 Sat by Pulse 98 99 98 Oximetry 03/23/20 03/23/20 03/23/20 07:15 07:30 07:45 Temperature Pulse Rate 97 H 106 H 106 H Pulse Rate [ From Monitor] Respiratory 12 16 15 Rate Blood Pressure 115/82 118/79 118/79 O2 Sat by Pulse 98 99 98 Oximetry 03/23/20 03/23/20 03/23/20 08:00 08:15 08:30 Temperature 99.0 F Pulse Rate 113 H 98 H 107 H Pulse Rate [ 105 H From Monitor] Respiratory 18 13 17 Rate Blood Pressure 114/79 114/79 116/80 O2 Sat by Pulse 99 98 98 Oximetry 03/23/20 03/23/20 03/23/20 08:45 08:48 09:00 Temperature Pulse Rate 112 H 106 H 107 H Pulse Rate [ From Monitor] Respiratory 15 17 23 Rate Blood Pressure 116/80 116/80 125/83 O2 Sat by Pulse 98 98 98 Oximetry 03/23/20 03/23/20 03/23/20 09:07 09:15 09:30 Temperature Pulse Rate 107 H 100 H 97 H Pulse Rate [ From Monitor] Respiratory 23 25 H Rate Blood Pressure 125/83 125/83 132/91 O2 Sat by Pulse 98 99 Oximetry Constitutional: no acute distress, other (thin middle aged male with normal respiratory effort at rest on MVS) Eyes: non-icteric ENT: oropharynx moist, other (S/P Tracheostomy) Neck: supple, no lymphadenopathy, no JVD Effort: mildly labored Ascultation: Bilateral: diminished breath sounds, rhonchi (and referred upper airway sounds) Percussion: Bilateral: not dull Cardiovascular: regular rate and rhythm, other (S1,S2, no murmurs) Gastrointestinal: normoactive bowel sounds, soft, non-tender, non-distended, other (+ distended but non tender suprapubis) Integumentary: normal, decubitus ulcer (sacral / gluteal) Extremities: no cyanosis, no edema, pulses normal, other (atrophic looking limbs) Neurologic: pupils equal and round, other (motor strength in extremities 1-2/5, awkae, alert, mouths words to make needs known) Psychiatric: depressed CBC and BMP: 03/22/20 06:34 03/22/20 06:34 ABG, PT/INR, D-dimer: ABG ABG pH 7.371 (7.320-7.450) 03/08/20 12:34 POC ABG pCO2 63.1 mmHg (32.0-48.0) H 03/08/20 12:34 ABG pCO2 60.1 mm Hg 03/06/20 04:34 POC ABG pO2 90.5 mmHg (83-108) 03/08/20 12:34 ABG pO2 88.6 mm Hg (80.0-90.0) 03/06/20 04:34 POC ABG HCO3 35.7 03/08/20 12:34 ABG O2 Saturation 97.0 % (95.0-99.0) 03/06/20 04:34 PT/INR, D-dimer PT 15.6 Sec. (12.2-14.9) H 02/24/20 09:19 INR 1.21 (0.87-1.13) H 02/24/20 09:19 D-Dimer 1311.96 ng/mlDDU (0-234) H 02/24/20 09:19 Abnormal lab findings: Abnormal Labs 02/24/20 02/24/20 02/24/20 09:19 09:19 09:19 WBC 20.2 H RBC 5.05 H Hgb Hct MCV MCH RDW 15.3 H Plt Count Lymph % (Auto) [place] # (Auto) Seg Neutrophils % Seg Neuts % (Manual) 86.0 H Lymphocytes % (Manual) 1.0 L Monocytes % (Manual) Basophils % (Manual) Seg Neutrophils # Seg Neutrophils # Man 17.4 H Lymphocytes # (Manual) 0.2 L Monocytes # (Manual) Eosinophils # (Manual) Basophils # (Manual) PT 15.6 H INR 1.21 H D-Dimer 1311.96 H ABG pH POC ABG pCO2 POC ABG pO2 ABG pO2 ABG HCO3 ABG O2 Saturation ABG Base Excess ABG Hemoglobin ABG Oxyhemoglobin ABG Potassium ABG Glucose Oxyhemoglobin Carboxyhemoglobin Sodium 135 L Potassium 3.2 L Chloride 92.2 L Carbon Dioxide BUN 6 L Creatinine < 0.2 L Glucose 124 H POC Glucose Calcium Ferritin Total Bilirubin 2.30 H Alkaline Phosphatase 132 H Lactate Dehydrogenase Troponin T 0.080 H C-Reactive Protein Total Protein Albumin 3.6 L Prealbumin LDL Cholesterol Direct 41 L Arterial Blood Glucose Arterial Blood Ionized Calcium Urine WBC (Auto) 02/24/20 02/24/20 02/24/20 09:19 09:58 10:01 WBC RBC Hgb Hct MCV MCH RDW Plt Count Lymph % (Auto) [place] # (Auto) Seg Neutrophils % Seg Neuts % (Manual) Lymphocytes % (Manual) Monocytes % (Manual) Basophils % (Manual) Seg Neutrophils # Seg Neutrophils # Man Lymphocytes # (Manual) Monocytes # (Manual) Eosinophils # (Manual) Basophils # (Manual) PT INR D-Dimer ABG pH 7.176 L* POC ABG pCO2 POC ABG pO2 ABG pO2 91.2 H ABG HCO3 ABG O2 Saturation ABG Base Excess -4.6 L ABG Hemoglobin ABG Oxyhemoglobin ABG Potassium ABG Glucose Oxyhemoglobin 92.6 L Carboxyhemoglobin Sodium Potassium Chloride Carbon Dioxide BUN Creatinine Glucose POC Glucose Calcium Ferritin 1715.0 H Total Bilirubin Alkaline Phosphatase Lactate Dehydrogenase 303 H Troponin T C-Reactive Protein 26.10 H Total Protein Albumin Prealbumin LDL Cholesterol Direct Arterial Blood Glucose Arterial Blood Ionized Calcium Urine WBC (Auto) 02/24/20 02/24/20 02/24/20 11:52 13:45 19:35 WBC RBC Hgb Hct MCV MCH RDW Plt Count Lymph % (Auto) [place] # (Auto) Seg Neutrophils % Seg Neuts % (Manual) Lymphocytes % (Manual) Monocytes % (Manual) Basophils % (Manual) Seg Neutrophils # Seg Neutrophils # Man Lymphocytes # (Manual) Monocytes # (Manual) Eosinophils # (Manual) Basophils # (Manual) PT INR D-Dimer ABG pH 7.051 L* 7.300 L POC ABG pCO2 POC ABG pO2 ABG pO2 94.7 H 75.1 L ABG HCO3 18.0 L ABG O2 Saturation 93.5 L ABG Base Excess -6.8 L -7.8 L ABG Hemoglobin 13.2 L 11.9 L ABG Oxyhemoglobin ABG Potassium ABG Glucose Oxyhemoglobin 91.0 L 92.7 L Carboxyhemoglobin Sodium Potassium Chloride Carbon Dioxide BUN Creatinine Glucose POC Glucose Calcium Ferritin Total Bilirubin Alkaline Phosphatase Lactate Dehydrogenase Troponin T 0.034 H D C-Reactive Protein Total Protein Albumin Prealbumin LDL Cholesterol Direct Arterial Blood Glucose Arterial Blood Ionized Calcium Urine WBC (Auto) 02/25/20 02/25/20 02/25/20 04:00 04:00 12:26 WBC 22.9 H RBC Hgb Hct MCV 83 L MCH 27 L RDW Plt Count 468 H Lymph % (Auto) [place] # (Auto) Seg Neutrophils % Seg Neuts % (Manual) 89.0 H Lymphocytes % (Manual) 7.0 L Monocytes % (Manual) Basophils % (Manual) Seg Neutrophils # Seg Neutrophils # Man 20.4 H Lymphocytes # (Manual) Monocytes # (Manual) Eosinophils # (Manual) Basophils # (Manual) PT INR D-Dimer ABG pH POC ABG pCO2 POC ABG pO2 ABG pO2 ABG HCO3 ABG O2 Saturation ABG Base Excess ABG Hemoglobin ABG Oxyhemoglobin ABG Potassium 2.6 L ABG Glucose 142 H Oxyhemoglobin Carboxyhemoglobin Sodium Potassium 3.2 L Chloride Carbon Dioxide 18 L BUN Creatinine 0.2 L Glucose 114 H POC Glucose Calcium Ferritin Total Bilirubin Alkaline Phosphatase Lactate Dehydrogenase Troponin T C-Reactive Protein Total Protein Albumin 3.5 L Prealbumin LDL Cholesterol Direct Arterial Blood Glucose 142 H Arterial Blood Ionized Calcium Urine WBC (Auto) 02/26/20 02/26/20 02/26/20 15:58 17:00 23:43 WBC RBC Hgb Hct MCV MCH RDW Plt Count Lymph % (Auto) [place] # (Auto) Seg Neutrophils % Seg Neuts % (Manual) Lymphocytes % (Manual) Monocytes % (Manual) Basophils % (Manual) Seg Neutrophils # Seg Neutrophils # Man Lymphocytes # (Manual) Monocytes # (Manual) Eosinophils # (Manual) Basophils # (Manual) PT INR D-Dimer ABG pH 7.502 H POC ABG pCO2 POC ABG pO2 213.6 H ABG pO2 ABG HCO3 ABG O2 Saturation ABG Base Excess ABG Hemoglobin ABG Oxyhemoglobin 99.2 H ABG Potassium 2.9 L ABG Glucose 160 H Oxyhemoglobin Carboxyhemoglobin 0.4 L Sodium Potassium Chloride Carbon Dioxide BUN Creatinine Glucose POC Glucose 189 H 120 H Calcium Ferritin Total Bilirubin Alkaline Phosphatase Lactate Dehydrogenase Troponin T C-Reactive Protein Total Protein Albumin Prealbumin LDL Cholesterol Direct Arterial Blood Glucose 160 H Arterial Blood Ionized Calcium 4.5 L Urine WBC (Auto) 02/27/20 02/27/20 02/27/20 05:00 07:04 17:45 WBC RBC Hgb Hct MCV MCH RDW Plt Count Lymph % (Auto) [place] # (Auto) Seg Neutrophils % Seg Neuts % (Manual) Lymphocytes % (Manual) Monocytes % (Manual) Basophils % (Manual) Seg Neutrophils # Seg Neutrophils # Man Lymphocytes # (Manual) Monocytes # (Manual) Eosinophils # (Manual) Basophils # (Manual) PT INR D-Dimer ABG pH 7.524 H POC ABG pCO2 POC ABG pO2 ABG pO2 ABG HCO3 ABG O2 Saturation ABG Base Excess ABG Hemoglobin ABG Oxyhemoglobin ABG Potassium 3.0 L ABG Glucose 143 H Oxyhemoglobin Carboxyhemoglobin Sodium Potassium Chloride Carbon Dioxide BUN Creatinine Glucose POC Glucose 154 H 175 H Calcium Ferritin Total Bilirubin Alkaline Phosphatase Lactate Dehydrogenase Troponin T C-Reactive Protein Total Protein Albumin Prealbumin LDL Cholesterol Direct Arterial Blood Glucose 143 H Arterial Blood Ionized Calcium Urine WBC (Auto) 02/27/20 02/28/20 02/28/20 Unknown 00:21 04:15 WBC 18.7 H RBC Hgb Hct MCV MCH RDW Plt Count Lymph % (Auto) 8.7 L [place] # (Auto) 1.2 H Seg Neutrophils % 84.6 H Seg Neuts % (Manual) Lymphocytes % (Manual) Monocytes % (Manual) Basophils % (Manual) Seg Neutrophils # 15.9 H Seg Neutrophils # Man Lymphocytes # (Manual) Monocytes # (Manual) Eosinophils # (Manual) Basophils # (Manual) PT INR D-Dimer ABG pH POC ABG pCO2 POC ABG pO2 ABG pO2 ABG HCO3 ABG O2 Saturation ABG Base Excess ABG Hemoglobin ABG Oxyhemoglobin ABG Potassium ABG Glucose Oxyhemoglobin Carboxyhemoglobin Sodium Potassium 2.9 L* Chloride Carbon Dioxide 33 H D BUN Creatinine < 0.2 L Glucose 157 H POC Glucose 134 H Calcium Ferritin Total Bilirubin Alkaline Phosphatase Lactate Dehydrogenase Troponin T C-Reactive Protein Total Protein Albumin Prealbumin LDL Cholesterol Direct Arterial Blood Glucose Arterial Blood Ionized Calcium Urine WBC (Auto) 02/28/20 02/28/20 02/28/20 04:15 05:16 05:39 WBC RBC Hgb Hct MCV MCH RDW Plt Count Lymph % (Auto) [place] # (Auto) Seg Neutrophils % Seg Neuts % (Manual) Lymphocytes % (Manual) Monocytes % (Manual) Basophils % (Manual) Seg Neutrophils # Seg Neutrophils # Man Lymphocytes # (Manual) Monocytes # (Manual) Eosinophils # (Manual) Basophils # (Manual) PT INR D-Dimer ABG pH POC ABG pCO2 POC ABG pO2 ABG pO2 142.9 H ABG HCO3 34.1 H ABG O2 Saturation ABG Base Excess 8.3 H ABG Hemoglobin ABG Oxyhemoglobin ABG Potassium ABG Glucose Oxyhemoglobin Carboxyhemoglobin Sodium 151 H Potassium Chloride Carbon Dioxide 32 H BUN Creatinine 0.2 L Glucose 167 H POC Glucose 138 H Calcium Ferritin Total Bilirubin Alkaline Phosphatase Lactate Dehydrogenase Troponin T C-Reactive Protein Total Protein Albumin Prealbumin LDL Cholesterol Direct Arterial Blood Glucose Arterial Blood Ionized Calcium Urine WBC (Auto) 02/28/20 02/28/20 02/28/20 11:05 11:33 12:54 WBC RBC Hgb Hct MCV MCH RDW Plt Count Lymph % (Auto) [place] # (Auto) Seg Neutrophils % Seg Neuts % (Manual) Lymphocytes % (Manual) Monocytes % (Manual) Basophils % (Manual) Seg Neutrophils # Seg Neutrophils # Man Lymphocytes # (Manual) Monocytes # (Manual) Eosinophils # (Manual) Basophils # (Manual) PT INR D-Dimer ABG pH POC ABG pCO2 POC ABG pO2 ABG pO2 ABG HCO3 ABG O2 Saturation ABG Base Excess ABG Hemoglobin ABG Oxyhemoglobin ABG Potassium ABG Glucose Oxyhemoglobin Carboxyhemoglobin Sodium Potassium Chloride Carbon Dioxide BUN Creatinine Glucose POC Glucose 160 H Calcium Ferritin Total Bilirubin Alkaline Phosphatase Lactate Dehydrogenase Troponin T C-Reactive Protein 4.70 H Total Protein Albumin Prealbumin 0.090 L LDL Cholesterol Direct Arterial Blood Glucose Arterial Blood Ionized Calcium Urine WBC (Auto) 02/28/20 02/29/20 02/29/20 17:34 00:44 04:05 WBC 19.6 H RBC Hgb Hct MCV MCH 27 L RDW 15.4 H Plt Count Lymph % (Auto) [place] # (Auto) Seg Neutrophils % Seg Neuts % (Manual) 86.0 H Lymphocytes % (Manual) 7.0 L Monocytes % (Manual) Basophils % (Manual) Seg Neutrophils # Seg Neutrophils # Man 16.9 H Lymphocytes # (Manual) Monocytes # (Manual) 1.2 H Eosinophils # (Manual) Basophils # (Manual) PT INR D-Dimer ABG pH POC ABG pCO2 POC ABG pO2 ABG pO2 ABG HCO3 ABG O2 Saturation ABG Base Excess ABG Hemoglobin ABG Oxyhemoglobin ABG Potassium ABG Glucose Oxyhemoglobin Carboxyhemoglobin Sodium Potassium Chloride Carbon Dioxide BUN Creatinine Glucose POC Glucose 136 H 156 H Calcium Ferritin Total Bilirubin Alkaline Phosphatase Lactate Dehydrogenase Troponin T C-Reactive Protein Total Protein Albumin Prealbumin LDL Cholesterol Direct Arterial Blood Glucose Arterial Blood Ionized Calcium Urine WBC (Auto) 02/29/20 02/29/20 02/29/20 04:05 05:14 05:33 WBC RBC Hgb Hct MCV MCH RDW Plt Count Lymph % (Auto) [place] # (Auto) Seg Neutrophils % Seg Neuts % (Manual) Lymphocytes % (Manual) Monocytes % (Manual) Basophils % (Manual) Seg Neutrophils # Seg Neutrophils # Man Lymphocytes # (Manual) Monocytes # (Manual) Eosinophils # (Manual) Basophils # (Manual) PT INR D-Dimer ABG pH POC ABG pCO2 54.3 H POC ABG pO2 124.8 H ABG pO2 ABG HCO3 ABG O2 Saturation ABG Base Excess ABG Hemoglobin ABG Oxyhemoglobin ABG Potassium ABG Glucose 185 H Oxyhemoglobin Carboxyhemoglobin Sodium 148 H Potassium Chloride Carbon Dioxide 33 H BUN Creatinine < 0.2 L Glucose 173 H POC Glucose 152 H Calcium Ferritin Total Bilirubin Alkaline Phosphatase Lactate Dehydrogenase Troponin T C-Reactive Protein Total Protein Albumin Prealbumin LDL Cholesterol Direct Arterial Blood Glucose 185 H Arterial Blood Ionized Calcium Urine WBC (Auto) 03/01/20 03/01/20 03/01/20 00:00 03:45 04:33 WBC 23.1 H RBC Hgb Hct MCV MCH 27 L RDW 15.3 H Plt Count Lymph % (Auto) [place] # (Auto) Seg Neutrophils % Seg Neuts % (Manual) 92.0 H Lymphocytes % (Manual) 6.0 L Monocytes % (Manual) Basophils % (Manual) Seg Neutrophils # Seg Neutrophils # Man 21.3 H Lymphocytes # (Manual) Monocytes # (Manual) Eosinophils # (Manual) 0.5 H Basophils # (Manual) PT INR D-Dimer ABG pH 7.492 H POC ABG pCO2 POC ABG pO2 ABG pO2 157.1 H ABG HCO3 32.3 H ABG O2 Saturation ABG Base Excess 8.1 H ABG Hemoglobin 13.2 L ABG Oxyhemoglobin ABG Potassium ABG Glucose Oxyhemoglobin Carboxyhemoglobin Sodium Potassium Chloride Carbon Dioxide BUN Creatinine Glucose POC Glucose 109 H Calcium Ferritin Total Bilirubin Alkaline Phosphatase Lactate Dehydrogenase Troponin T C-Reactive Protein Total Protein Albumin Prealbumin LDL Cholesterol Direct Arterial Blood Glucose Arterial Blood Ionized Calcium Urine WBC (Auto) 03/01/20 03/01/20 03/01/20 04:33 05:29 12:32 WBC RBC Hgb Hct MCV MCH RDW Plt Count Lymph % (Auto) [place] # (Auto) Seg Neutrophils % Seg Neuts % (Manual) Lymphocytes % (Manual) Monocytes % (Manual) Basophils % (Manual) Seg Neutrophils # Seg Neutrophils # Man Lymphocytes # (Manual) Monocytes # (Manual) Eosinophils # (Manual) Basophils # (Manual) PT INR D-Dimer ABG pH POC ABG pCO2 POC ABG pO2 ABG pO2 ABG HCO3 ABG O2 Saturation ABG Base Excess ABG Hemoglobin ABG Oxyhemoglobin ABG Potassium ABG Glucose Oxyhemoglobin Carboxyhemoglobin Sodium 146 H Potassium Chloride Carbon Dioxide 32 H BUN Creatinine < 0.2 L Glucose 120 H POC Glucose 120 H 128 H Calcium Ferritin Total Bilirubin Alkaline Phosphatase Lactate Dehydrogenase Troponin T C-Reactive Protein Total Protein Albumin Prealbumin LDL Cholesterol Direct Arterial Blood Glucose Arterial Blood Ionized Calcium Urine WBC (Auto) 03/01/20 03/01/20 03/02/20 17:38 23:46 06:13 WBC RBC Hgb Hct MCV MCH RDW Plt Count Lymph % (Auto) [place] # (Auto) Seg Neutrophils % Seg Neuts % (Manual) Lymphocytes % (Manual) Monocytes % (Manual) Basophils % (Manual) Seg Neutrophils # Seg Neutrophils # Man Lymphocytes # (Manual) Monocytes # (Manual) Eosinophils # (Manual) Basophils # (Manual) PT INR D-Dimer ABG pH POC ABG pCO2 POC ABG pO2 ABG pO2 ABG HCO3 ABG O2 Saturation ABG Base Excess ABG Hemoglobin ABG Oxyhemoglobin ABG Potassium ABG Glucose Oxyhemoglobin Carboxyhemoglobin Sodium Potassium Chloride Carbon Dioxide BUN Creatinine Glucose POC Glucose 114 H 121 H 120 H Calcium Ferritin Total Bilirubin Alkaline Phosphatase Lactate Dehydrogenase Troponin T C-Reactive Protein Total Protein Albumin Prealbumin LDL Cholesterol Direct Arterial Blood Glucose Arterial Blood Ionized Calcium Urine WBC (Auto) 03/02/20 03/02/20 03/03/20 09:47 09:47 10:21 WBC 23.6 H RBC Hgb Hct MCV MCH RDW 15.3 H Plt Count 494 H Lymph % (Auto) [place] # (Auto) Seg Neutrophils % Seg Neuts % (Manual) 85.0 H Lymphocytes % (Manual) 6.0 L Monocytes % (Manual) Basophils % (Manual) Seg Neutrophils # Seg Neutrophils # Man 20.1 H Lymphocytes # (Manual) Monocytes # (Manual) 1.7 H Eosinophils # (Manual) Basophils # (Manual) PT INR D-Dimer ABG pH POC ABG pCO2 POC ABG pO2 ABG pO2 ABG HCO3 ABG O2 Saturation ABG Base Excess ABG Hemoglobin ABG Oxyhemoglobin ABG Potassium 3.3 L ABG Glucose 158 H Oxyhemoglobin Carboxyhemoglobin Sodium Potassium Chloride Carbon Dioxide BUN Creatinine < 0.2 L Glucose 177 H POC Glucose Calcium Ferritin Total Bilirubin Alkaline Phosphatase Lactate Dehydrogenase Troponin T C-Reactive Protein Total Protein Albumin Prealbumin LDL Cholesterol Direct Arterial Blood Glucose 158 H Arterial Blood Ionized Calcium Urine WBC (Auto) 03/03/20 03/04/20 03/04/20 21:30 00:00 12:23 WBC RBC Hgb Hct MCV MCH RDW Plt Count Lymph % (Auto) [place] # (Auto) Seg Neutrophils % Seg Neuts % (Manual) Lymphocytes % (Manual) Monocytes % (Manual) Basophils % (Manual) Seg Neutrophils # Seg Neutrophils # Man Lymphocytes # (Manual) Monocytes # (Manual) Eosinophils # (Manual) Basophils # (Manual) PT INR D-Dimer ABG pH 7.328 L POC ABG pCO2 POC ABG pO2 ABG pO2 68.4 L ABG HCO3 35.0 H ABG O2 Saturation 93.9 L ABG Base Excess 6.8 H ABG Hemoglobin 12.7 L ABG Oxyhemoglobin ABG Potassium ABG Glucose Oxyhemoglobin 91.9 L Carboxyhemoglobin Sodium Potassium Chloride Carbon Dioxide BUN Creatinine Glucose POC Glucose 187 H 163 H Calcium Ferritin Total Bilirubin Alkaline Phosphatase Lactate Dehydrogenase Troponin T C-Reactive Protein Total Protein Albumin Prealbumin LDL Cholesterol Direct Arterial Blood Glucose Arterial Blood Ionized Calcium Urine WBC (Auto) 03/04/20 03/04/20 03/05/20 18:15 21:30 06:02 WBC RBC Hgb Hct MCV MCH RDW Plt Count Lymph % (Auto) [place] # (Auto) Seg Neutrophils % Seg Neuts % (Manual) Lymphocytes % (Manual) Monocytes % (Manual) Basophils % (Manual) Seg Neutrophils # Seg Neutrophils # Man Lymphocytes # (Manual) Monocytes # (Manual) Eosinophils # (Manual) Basophils # (Manual) PT INR D-Dimer ABG pH 7.297 L POC ABG pCO2 POC ABG pO2 ABG pO2 ABG HCO3 41.0 H ABG O2 Saturation ABG Base Excess 11.0 H ABG Hemoglobin 13.1 L ABG Oxyhemoglobin ABG Potassium ABG Glucose Oxyhemoglobin 94.5 L Carboxyhemoglobin Sodium Potassium Chloride Carbon Dioxide BUN Creatinine Glucose POC Glucose 192 H 127 H Calcium Ferritin Total Bilirubin Alkaline Phosphatase Lactate Dehydrogenase Troponin T C-Reactive Protein Total Protein Albumin Prealbumin LDL Cholesterol Direct Arterial Blood Glucose Arterial Blood Ionized Calcium Urine WBC (Auto) 03/05/20 03/05/20 03/06/20 12:09 16:42 00:24 WBC RBC Hgb Hct MCV MCH RDW Plt Count Lymph % (Auto) [place] # (Auto) Seg Neutrophils % Seg Neuts % (Manual) Lymphocytes % (Manual) Monocytes % (Manual) Basophils % (Manual) Seg Neutrophils # Seg Neutrophils # Man Lymphocytes # (Manual) Monocytes # (Manual) Eosinophils # (Manual) Basophils # (Manual) PT INR D-Dimer ABG pH POC ABG pCO2 POC ABG pO2 ABG pO2 ABG HCO3 ABG O2 Saturation ABG Base Excess ABG Hemoglobin ABG Oxyhemoglobin ABG Potassium ABG Glucose Oxyhemoglobin Carboxyhemoglobin Sodium Potassium Chloride Carbon Dioxide BUN Creatinine Glucose POC Glucose 147 H 114 H 134 H Calcium Ferritin Total Bilirubin Alkaline Phosphatase Lactate Dehydrogenase Troponin T C-Reactive Protein Total Protein Albumin Prealbumin LDL Cholesterol Direct Arterial Blood Glucose Arterial Blood Ionized Calcium Urine WBC (Auto) 03/06/20 03/06/20 03/06/20 04:34 05:53 06:08 WBC 25.4 H RBC Hgb 10.5 L Hct 32.7 L MCV MCH 27 L RDW 15.3 H Plt Count 634 H Lymph % (Auto) [place] # (Auto) Seg Neutrophils % Seg Neuts % (Manual) 88.0 H Lymphocytes % (Manual) 2.0 L Monocytes % (Manual) 8.0 H Basophils % (Manual) Seg Neutrophils # Seg Neutrophils # Man 22.4 H Lymphocytes # (Manual) 0.5 L Monocytes # (Manual) 2.0 H Eosinophils # (Manual) Basophils # (Manual) PT INR D-Dimer ABG pH POC ABG pCO2 POC ABG pO2 ABG pO2 ABG HCO3 37.9 H ABG O2 Saturation ABG Base Excess 11.4 H ABG Hemoglobin 10.6 L ABG Oxyhemoglobin ABG Potassium ABG Glucose Oxyhemoglobin 94.7 L Carboxyhemoglobin Sodium Potassium Chloride Carbon Dioxide BUN Creatinine Glucose POC Glucose 135 H Calcium Ferritin Total Bilirubin Alkaline Phosphatase Lactate Dehydrogenase Troponin T C-Reactive Protein Total Protein Albumin Prealbumin LDL Cholesterol Direct Arterial Blood Glucose Arterial Blood Ionized Calcium Urine WBC (Auto) 03/06/20 03/06/20 03/06/20 06:08 12:19 19:10 WBC RBC Hgb Hct MCV MCH RDW Plt Count Lymph % (Auto) [place] # (Auto) Seg Neutrophils % Seg Neuts % (Manual) Lymphocytes % (Manual) Monocytes % (Manual) Basophils % (Manual) Seg Neutrophils # Seg Neutrophils # Man Lymphocytes # (Manual) Monocytes # (Manual) Eosinophils # (Manual) Basophils # (Manual) PT INR D-Dimer ABG pH POC ABG pCO2 POC ABG pO2 ABG pO2 ABG HCO3 ABG O2 Saturation ABG Base Excess ABG Hemoglobin ABG Oxyhemoglobin ABG Potassium ABG Glucose Oxyhemoglobin Carboxyhemoglobin Sodium 150 H D Potassium Chloride Carbon Dioxide 39 H D BUN 23 H Creatinine < 0.2 L Glucose 144 H POC Glucose 169 H 152 H Calcium Ferritin Total Bilirubin Alkaline Phosphatase Lactate Dehydrogenase Troponin T C-Reactive Protein Total Protein Albumin 3.3 L Prealbumin LDL Cholesterol Direct Arterial Blood Glucose Arterial Blood Ionized Calcium Urine WBC (Auto) 03/06/20 03/07/20 03/07/20 23:58 04:25 04:25 WBC 22.1 H RBC Hgb 10.9 L Hct 32.9 L MCV MCH RDW 15.5 H Plt Count 739 H Lymph % (Auto) 7.8 L [place] # (Auto) 1.3 H Seg Neutrophils % 85.5 H Seg Neuts % (Manual) Lymphocytes % (Manual) Monocytes % (Manual) Basophils % (Manual) Seg Neutrophils # 18.9 H Seg Neutrophils # Man Lymphocytes # (Manual) Monocytes # (Manual) Eosinophils # (Manual) Basophils # (Manual) PT INR D-Dimer ABG pH POC ABG pCO2 POC ABG pO2 ABG pO2 ABG HCO3 ABG O2 Saturation ABG Base Excess ABG Hemoglobin ABG Oxyhemoglobin ABG Potassium ABG Glucose Oxyhemoglobin Carboxyhemoglobin Sodium 146 H Potassium Chloride Carbon Dioxide 37 H BUN Creatinine < 0.2 L Glucose 118 H POC Glucose 111 H Calcium Ferritin Total Bilirubin Alkaline Phosphatase Lactate Dehydrogenase Troponin T C-Reactive Protein Total Protein Albumin 3.7 L Prealbumin LDL Cholesterol Direct Arterial Blood Glucose Arterial Blood Ionized Calcium Urine WBC (Auto) 03/07/20 03/07/20 03/07/20 05:20 17:45 23:32 WBC RBC Hgb Hct MCV MCH RDW Plt Count Lymph % (Auto) [place] # (Auto) Seg Neutrophils % Seg Neuts % (Manual) Lymphocytes % (Manual) Monocytes % (Manual) Basophils % (Manual) Seg Neutrophils # Seg Neutrophils # Man Lymphocytes # (Manual) Monocytes # (Manual) Eosinophils # (Manual) Basophils # (Manual) PT INR D-Dimer ABG pH POC ABG pCO2 POC ABG pO2 ABG pO2 ABG HCO3 ABG O2 Saturation ABG Base Excess ABG Hemoglobin ABG Oxyhemoglobin ABG Potassium ABG Glucose Oxyhemoglobin Carboxyhemoglobin Sodium Potassium Chloride Carbon Dioxide BUN Creatinine Glucose POC Glucose 113 H 124 H 210 H Calcium Ferritin Total Bilirubin Alkaline Phosphatase Lactate Dehydrogenase Troponin T C-Reactive Protein Total Protein Albumin Prealbumin LDL Cholesterol Direct Arterial Blood Glucose Arterial Blood Ionized Calcium Urine WBC (Auto) 03/08/20 03/08/20 03/08/20 05:35 06:43 06:43 WBC 28.9 H RBC 3.53 L Hgb 9.7 L Hct 30.3 L MCV MCH RDW 15.6 H Plt Count 578 H Lymph % (Auto) [place] # (Auto) Seg Neutrophils % Seg Neuts % (Manual) 93.0 H Lymphocytes % (Manual) 4.0 L Monocytes % (Manual) Basophils % (Manual) Seg Neutrophils # Seg Neutrophils # Man 26.9 H Lymphocytes # (Manual) Monocytes # (Manual) Eosinophils # (Manual) Basophils # (Manual) PT INR D-Dimer ABG pH POC ABG pCO2 POC ABG pO2 ABG pO2 ABG HCO3 ABG O2 Saturation ABG Base Excess ABG Hemoglobin ABG Oxyhemoglobin ABG Potassium ABG Glucose Oxyhemoglobin Carboxyhemoglobin Sodium 146 H Potassium Chloride Carbon Dioxide 35 H BUN 34 H Creatinine 0.3 L D Glucose 125 H POC Glucose 147 H Calcium Ferritin Total Bilirubin Alkaline Phosphatase Lactate Dehydrogenase Troponin T C-Reactive Protein Total Protein 5.9 L Albumin 3.2 L Prealbumin LDL Cholesterol Direct Arterial Blood Glucose Arterial Blood Ionized Calcium Urine WBC (Auto) 03/08/20 03/08/20 03/08/20 08:57 11:14 12:34 WBC RBC Hgb Hct MCV MCH RDW Plt Count Lymph % (Auto) [place] # (Auto) Seg Neutrophils % Seg Neuts % (Manual) Lymphocytes % (Manual) Monocytes % (Manual) Basophils % (Manual) Seg Neutrophils # Seg Neutrophils # Man Lymphocytes # (Manual) Monocytes # (Manual) Eosinophils # (Manual) Basophils # (Manual) PT INR D-Dimer ABG pH POC ABG pCO2 63.1 H POC ABG pO2 ABG pO2 ABG HCO3 ABG O2 Saturation ABG Base Excess ABG Hemoglobin 10.9 L ABG Oxyhemoglobin ABG Potassium ABG Glucose 176 H Oxyhemoglobin Carboxyhemoglobin Sodium Potassium Chloride Carbon Dioxide BUN Creatinine Glucose POC Glucose 171 H Calcium Ferritin Total Bilirubin Alkaline Phosphatase Lactate Dehydrogenase Troponin T C-Reactive Protein Total Protein Albumin Prealbumin LDL Cholesterol Direct Arterial Blood Glucose 176 H Arterial Blood Ionized Calcium 4.5 L Urine WBC (Auto) 10.0 H 03/08/20 03/08/20 03/09/20 18:02 23:43 05:49 WBC RBC Hgb Hct MCV MCH RDW Plt Count Lymph % (Auto) [place] # (Auto) Seg Neutrophils % Seg Neuts % (Manual) Lymphocytes % (Manual) Monocytes % (Manual) Basophils % (Manual) Seg Neutrophils # Seg Neutrophils # Man Lymphocytes # (Manual) Monocytes # (Manual) Eosinophils # (Manual) Basophils # (Manual) PT INR D-Dimer ABG pH POC ABG pCO2 POC ABG pO2 ABG pO2 ABG HCO3 ABG O2 Saturation ABG Base Excess ABG Hemoglobin ABG Oxyhemoglobin ABG Potassium ABG Glucose Oxyhemoglobin Carboxyhemoglobin Sodium Potassium Chloride Carbon Dioxide BUN Creatinine Glucose POC Glucose 157 H 134 H 163 H Calcium Ferritin Total Bilirubin Alkaline Phosphatase Lactate Dehydrogenase Troponin T C-Reactive Protein Total Protein Albumin Prealbumin LDL Cholesterol Direct Arterial Blood Glucose Arterial Blood Ionized Calcium Urine WBC (Auto) 03/09/20 03/09/20 03/09/20 08:35 08:35 12:11 WBC 23.4 H RBC 3.36 L Hgb 9.3 L Hct 28.8 L MCV MCH RDW 15.9 H Plt Count 521 H Lymph % (Auto) [place] # (Auto) Seg Neutrophils % Seg Neuts % (Manual) 87.0 H Lymphocytes % (Manual) 4.0 L Monocytes % (Manual) 9.0 H Basophils % (Manual) Seg Neutrophils # Seg Neutrophils # Man 20.4 H Lymphocytes # (Manual) 0.9 L Monocytes # (Manual) 2.1 H Eosinophils # (Manual) Basophils # (Manual) PT INR D-Dimer ABG pH POC ABG pCO2 POC ABG pO2 ABG pO2 ABG HCO3 ABG O2 Saturation ABG Base Excess ABG Hemoglobin ABG Oxyhemoglobin ABG Potassium ABG Glucose Oxyhemoglobin Carboxyhemoglobin Sodium 147 H Potassium Chloride Carbon Dioxide 37 H BUN 63 H Creatinine Glucose 154 H POC Glucose 128 H Calcium Ferritin Total Bilirubin Alkaline Phosphatase Lactate Dehydrogenase Troponin T C-Reactive Protein Total Protein Albumin Prealbumin LDL Cholesterol Direct Arterial Blood Glucose Arterial Blood Ionized Calcium Urine WBC (Auto) 03/09/20 03/10/20 03/10/20 17:51 00:25 05:41 WBC RBC Hgb Hct MCV MCH RDW Plt Count Lymph % (Auto) [place] # (Auto) Seg Neutrophils % Seg Neuts % (Manual) Lymphocytes % (Manual) Monocytes % (Manual) Basophils % (Manual) Seg Neutrophils # Seg Neutrophils # Man Lymphocytes # (Manual) Monocytes # (Manual) Eosinophils # (Manual) Basophils # (Manual) PT INR D-Dimer ABG pH POC ABG pCO2 POC ABG pO2 ABG pO2 ABG HCO3 ABG O2 Saturation ABG Base Excess ABG Hemoglobin ABG Oxyhemoglobin ABG Potassium ABG Glucose Oxyhemoglobin Carboxyhemoglobin Sodium Potassium Chloride Carbon Dioxide BUN Creatinine Glucose POC Glucose 127 H 128 H 153 H Calcium Ferritin Total Bilirubin Alkaline Phosphatase Lactate Dehydrogenase Troponin T C-Reactive Protein Total Protein Albumin Prealbumin LDL Cholesterol Direct Arterial Blood Glucose Arterial Blood Ionized Calcium Urine WBC (Auto) 03/10/20 03/10/20 03/10/20 06:14 06:14 12:02 WBC 18.3 H RBC 3.45 L Hgb 9.5 L Hct 29.5 L MCV MCH RDW 16.1 H Plt Count 494 H Lymph % (Auto) [place] # (Auto) Seg Neutrophils % Seg Neuts % (Manual) 95.0 H Lymphocytes % (Manual) 1.0 L Monocytes % (Manual) Basophils % (Manual) Seg Neutrophils # Seg Neutrophils # Man 17.4 H Lymphocytes # (Manual) 0.2 L Monocytes # (Manual) Eosinophils # (Manual) Basophils # (Manual) PT INR D-Dimer ABG pH POC ABG pCO2 POC ABG pO2 ABG pO2 ABG HCO3 ABG O2 Saturation ABG Base Excess ABG Hemoglobin ABG Oxyhemoglobin ABG Potassium ABG Glucose Oxyhemoglobin Carboxyhemoglobin Sodium 149 H Potassium Chloride Carbon Dioxide 35 H BUN 34 H Creatinine 0.2 L D Glucose 177 H POC Glucose 151 H Calcium Ferritin Total Bilirubin Alkaline Phosphatase Lactate Dehydrogenase Troponin T C-Reactive Protein Total Protein Albumin Prealbumin LDL Cholesterol Direct Arterial Blood Glucose Arterial Blood Ionized Calcium Urine WBC (Auto) 03/10/20 03/10/20 03/11/20 17:41 23:53 05:02 WBC RBC Hgb Hct MCV MCH RDW Plt Count Lymph % (Auto) [place] # (Auto) Seg Neutrophils % Seg Neuts % (Manual) Lymphocytes % (Manual) Monocytes % (Manual) Basophils % (Manual) Seg Neutrophils # Seg Neutrophils # Man Lymphocytes # (Manual) Monocytes # (Manual) Eosinophils # (Manual) Basophils # (Manual) PT INR D-Dimer ABG pH POC ABG pCO2 POC ABG pO2 ABG pO2 ABG HCO3 ABG O2 Saturation ABG Base Excess ABG Hemoglobin ABG Oxyhemoglobin ABG Potassium ABG Glucose Oxyhemoglobin Carboxyhemoglobin Sodium Potassium Chloride Carbon Dioxide BUN Creatinine Glucose POC Glucose 168 H 142 H 146 H Calcium Ferritin Total Bilirubin Alkaline Phosphatase Lactate Dehydrogenase Troponin T C-Reactive Protein Total Protein Albumin Prealbumin LDL Cholesterol Direct Arterial Blood Glucose Arterial Blood Ionized Calcium Urine WBC (Auto) 03/11/20 03/11/20 03/11/20 11:30 14:01 14:01 WBC 19.7 H RBC 3.04 L Hgb 8.7 L Hct 25.8 L MCV MCH RDW 15.6 H Plt Count Lymph % (Auto) [place] # (Auto) Seg Neutrophils % Seg Neuts % (Manual) Lymphocytes % (Manual) Monocytes % (Manual) Basophils % (Manual) Seg Neutrophils # Seg Neutrophils # Man Lymphocytes # (Manual) Monocytes # (Manual) Eosinophils # (Manual) Basophils # (Manual) PT INR D-Dimer ABG pH POC ABG pCO2 POC ABG pO2 ABG pO2 ABG HCO3 ABG O2 Saturation ABG Base Excess ABG Hemoglobin ABG Oxyhemoglobin ABG Potassium ABG Glucose Oxyhemoglobin Carboxyhemoglobin Sodium 151 H Potassium Chloride Carbon Dioxide 37 H BUN Creatinine < 0.2 L Glucose 171 H POC Glucose 248 H Calcium Ferritin Total Bilirubin Alkaline Phosphatase Lactate Dehydrogenase Troponin T C-Reactive Protein Total Protein Albumin Prealbumin LDL Cholesterol Direct Arterial Blood Glucose Arterial Blood Ionized Calcium Urine WBC (Auto) 03/11/20 03/11/20 03/12/20 17:09 23:52 04:39 WBC 19.9 H RBC 3.16 L Hgb 8.9 L Hct 27.5 L MCV MCH RDW 15.7 H Plt Count Lymph % (Auto) 6.8 L [place] # (Auto) 1.2 H Seg Neutrophils % 86.0 H Seg Neuts % (Manual) Lymphocytes % (Manual) Monocytes % (Manual) Basophils % (Manual) Seg Neutrophils # 17.1 H Seg Neutrophils # Man Lymphocytes # (Manual) Monocytes # (Manual) Eosinophils # (Manual) Basophils # (Manual) PT INR D-Dimer ABG pH POC ABG pCO2 POC ABG pO2 ABG pO2 ABG HCO3 ABG O2 Saturation ABG Base Excess ABG Hemoglobin ABG Oxyhemoglobin ABG Potassium ABG Glucose Oxyhemoglobin Carboxyhemoglobin Sodium Potassium Chloride Carbon Dioxide BUN Creatinine Glucose POC Glucose 124 H 131 H Calcium Ferritin Total Bilirubin Alkaline Phosphatase Lactate Dehydrogenase Troponin T C-Reactive Protein Total Protein Albumin Prealbumin LDL Cholesterol Direct Arterial Blood Glucose Arterial Blood Ionized Calcium Urine WBC (Auto) 03/12/20 03/12/20 03/12/20 04:39 05:28 11:34 WBC RBC Hgb Hct MCV MCH RDW Plt Count Lymph % (Auto) [place] # (Auto) Seg Neutrophils % Seg Neuts % (Manual) Lymphocytes % (Manual) Monocytes % (Manual) Basophils % (Manual) Seg Neutrophils # Seg Neutrophils # Man Lymphocytes # (Manual) Monocytes # (Manual) Eosinophils # (Manual) Basophils # (Manual) PT INR D-Dimer ABG pH POC ABG pCO2 POC ABG pO2 ABG pO2 ABG HCO3 ABG O2 Saturation ABG Base Excess ABG Hemoglobin ABG Oxyhemoglobin ABG Potassium ABG Glucose Oxyhemoglobin Carboxyhemoglobin Sodium 147 H Potassium Chloride Carbon Dioxide 40 H BUN Creatinine < 0.2 L Glucose 175 H POC Glucose 167 H 144 H Calcium Ferritin Total Bilirubin Alkaline Phosphatase Lactate Dehydrogenase Troponin T C-Reactive Protein Total Protein Albumin Prealbumin LDL Cholesterol Direct Arterial Blood Glucose Arterial Blood Ionized Calcium Urine WBC (Auto) 03/12/20 03/12/20 03/13/20 17:32 23:57 05:57 WBC RBC Hgb Hct MCV MCH RDW Plt Count Lymph % (Auto) [place] # (Auto) Seg Neutrophils % Seg Neuts % (Manual) Lymphocytes % (Manual) Monocytes % (Manual) Basophils % (Manual) Seg Neutrophils # Seg Neutrophils # Man Lymphocytes # (Manual) Monocytes # (Manual) Eosinophils # (Manual) Basophils # (Manual) PT INR D-Dimer ABG pH POC ABG pCO2 POC ABG pO2 ABG pO2 ABG HCO3 ABG O2 Saturation ABG Base Excess ABG Hemoglobin ABG Oxyhemoglobin ABG Potassium ABG Glucose Oxyhemoglobin Carboxyhemoglobin Sodium Potassium Chloride Carbon Dioxide BUN Creatinine Glucose POC Glucose 141 H 137 H 161 H Calcium Ferritin Total Bilirubin Alkaline Phosphatase Lactate Dehydrogenase Troponin T C-Reactive Protein Total Protein Albumin Prealbumin LDL Cholesterol Direct Arterial Blood Glucose Arterial Blood Ionized Calcium Urine WBC (Auto) 03/13/20 03/13/20 03/13/20 12:28 14:14 18:39 WBC RBC Hgb Hct MCV MCH RDW Plt Count Lymph % (Auto) [place] # (Auto) Seg Neutrophils % Seg Neuts % (Manual) Lymphocytes % (Manual) Monocytes % (Manual) Basophils % (Manual) Seg Neutrophils # Seg Neutrophils # Man Lymphocytes # (Manual) Monocytes # (Manual) Eosinophils # (Manual) Basophils # (Manual) PT INR D-Dimer ABG pH POC ABG pCO2 POC ABG pO2 ABG pO2 ABG HCO3 ABG O2 Saturation ABG Base Excess ABG Hemoglobin ABG Oxyhemoglobin ABG Potassium ABG Glucose Oxyhemoglobin Carboxyhemoglobin Sodium Potassium Chloride Carbon Dioxide 39 H BUN Creatinine < 0.2 L Glucose 129 H POC Glucose 130 H 125 H Calcium Ferritin Total Bilirubin Alkaline Phosphatase Lactate Dehydrogenase Troponin T C-Reactive Protein Total Protein Albumin Prealbumin LDL Cholesterol Direct Arterial Blood Glucose Arterial Blood Ionized Calcium Urine WBC (Auto) 03/13/20 03/14/20 03/14/20 23:33 05:24 08:07 WBC 16.8 H RBC 2.81 L Hgb 7.9 L Hct 23.9 L MCV MCH RDW 15.9 H Plt Count Lymph % (Auto) [place] # (Auto) Seg Neutrophils % Seg Neuts % (Manual) 84.0 H Lymphocytes % (Manual) 10.0 L Monocytes % (Manual) Basophils % (Manual) Seg Neutrophils # Seg Neutrophils # Man 14.1 H Lymphocytes # (Manual) Monocytes # (Manual) Eosinophils # (Manual) Basophils # (Manual) PT INR D-Dimer ABG pH POC ABG pCO2 POC ABG pO2 ABG pO2 ABG HCO3 ABG O2 Saturation ABG Base Excess ABG Hemoglobin ABG Oxyhemoglobin ABG Potassium ABG Glucose Oxyhemoglobin Carboxyhemoglobin Sodium Potassium Chloride Carbon Dioxide BUN Creatinine Glucose POC Glucose 146 H 125 H Calcium Ferritin Total Bilirubin Alkaline Phosphatase Lactate Dehydrogenase Troponin T C-Reactive Protein Total Protein Albumin Prealbumin LDL Cholesterol Direct Arterial Blood Glucose Arterial Blood Ionized Calcium Urine WBC (Auto) 1103/14/20 03/14/20 08:07 12:21 18:26 WBC RBC Hgb Hct MCV MCH RDW Plt Count Lymph % (Auto) [place] # (Auto) Seg Neutrophils % Seg Neuts % (Manual) Lymphocytes % (Manual) Monocytes % (Manual) Basophils % (Manual) Seg Neutrophils # Seg Neutrophils # Man Lymphocytes # (Manual) Monocytes # (Manual) Eosinophils # (Manual) Basophils # (Manual) PT INR D-Dimer ABG pH POC ABG pCO2 POC ABG pO2 ABG pO2 ABG HCO3 ABG O2 Saturation ABG Base Excess ABG Hemoglobin ABG Oxyhemoglobin ABG Potassium ABG Glucose Oxyhemoglobin Carboxyhemoglobin Sodium Potassium Chloride 97.0 L Carbon Dioxide 37 H BUN Creatinine < 0.2 L Glucose 129 H POC Glucose 109 H 142 H Calcium 8.3 L Ferritin Total Bilirubin Alkaline Phosphatase Lactate Dehydrogenase Troponin T C-Reactive Protein Total Protein Albumin Prealbumin LDL Cholesterol Direct Arterial Blood Glucose Arterial Blood Ionized Calcium Urine WBC (Auto) 03/14/20 03/15/20 03/15/20 23:57 05:46 08:06 WBC 19.7 H RBC 3.29 L Hgb 9.1 L Hct 28.0 L MCV MCH RDW 15.9 H Plt Count Lymph % (Auto) [place] # (Auto) Seg Neutrophils % Seg Neuts % (Manual) Lymphocytes % (Manual) Monocytes % (Manual) Basophils % (Manual) Seg Neutrophils # Seg Neutrophils # Man Lymphocytes # (Manual) Monocytes # (Manual) Eosinophils # (Manual) Basophils # (Manual) PT INR D-Dimer ABG pH POC ABG pCO2 POC ABG pO2 ABG pO2 ABG HCO3 ABG O2 Saturation ABG Base Excess ABG Hemoglobin ABG Oxyhemoglobin ABG Potassium ABG Glucose Oxyhemoglobin Carboxyhemoglobin Sodium Potassium Chloride Carbon Dioxide BUN Creatinine Glucose POC Glucose 157 H 118 H Calcium Ferritin Total Bilirubin Alkaline Phosphatase Lactate Dehydrogenase Troponin T C-Reactive Protein Total Protein Albumin Prealbumin LDL Cholesterol Direct Arterial Blood Glucose Arterial Blood Ionized Calcium Urine WBC (Auto) 03/15/20 03/15/20 03/15/20 08:06 12:44 18:09 WBC RBC Hgb Hct MCV MCH RDW Plt Count Lymph % (Auto) [place] # (Auto) Seg Neutrophils % Seg Neuts % (Manual) Lymphocytes % (Manual) Monocytes % (Manual) Basophils % (Manual) Seg Neutrophils # Seg Neutrophils # Man Lymphocytes # (Manual) Monocytes # (Manual) Eosinophils # (Manual) Basophils # (Manual) PT INR D-Dimer ABG pH POC ABG pCO2 POC ABG pO2 ABG pO2 ABG HCO3 ABG O2 Saturation ABG Base Excess ABG Hemoglobin ABG Oxyhemoglobin ABG Potassium ABG Glucose Oxyhemoglobin Carboxyhemoglobin Sodium 136 L Potassium Chloride 93.6 L Carbon Dioxide 37 H BUN Creatinine < 0.2 L Glucose 132 H POC Glucose 151 H 164 H Calcium Ferritin Total Bilirubin Alkaline Phosphatase Lactate Dehydrogenase Troponin T C-Reactive Protein Total Protein Albumin Prealbumin LDL Cholesterol Direct Arterial Blood Glucose Arterial Blood Ionized Calcium Urine WBC (Auto) 03/15/20 03/16/20 03/16/20 23:26 05:39 11:58 WBC RBC Hgb Hct MCV MCH RDW Plt Count Lymph % (Auto) [place] # (Auto) Seg Neutrophils % Seg Neuts % (Manual) Lymphocytes % (Manual) Monocytes % (Manual) Basophils % (Manual) Seg Neutrophils # Seg Neutrophils # Man Lymphocytes # (Manual) Monocytes # (Manual) Eosinophils # (Manual) Basophils # (Manual) PT INR D-Dimer ABG pH POC ABG pCO2 POC ABG pO2 ABG pO2 ABG HCO3 ABG O2 Saturation ABG Base Excess ABG Hemoglobin ABG Oxyhemoglobin ABG Potassium ABG Glucose Oxyhemoglobin Carboxyhemoglobin Sodium Potassium Chloride Carbon Dioxide BUN Creatinine Glucose POC Glucose 136 H 116 H 109 H Calcium Ferritin Total Bilirubin Alkaline Phosphatase Lactate Dehydrogenase Troponin T C-Reactive Protein Total Protein Albumin Prealbumin LDL Cholesterol Direct Arterial Blood Glucose Arterial Blood Ionized Calcium Urine WBC (Auto) 03/16/20 03/17/20 03/17/20 23:56 04:40 04:40 WBC 18.0 H RBC 3.33 L Hgb 9.5 L Hct 28.8 L MCV MCH RDW 16.4 H Plt Count 499 H Lymph % (Auto) [place] # (Auto) Seg Neutrophils % Seg Neuts % (Manual) 82.0 H Lymphocytes % (Manual) 8.0 L Monocytes % (Manual) Basophils % (Manual) Seg Neutrophils # Seg Neutrophils # Man 14.8 H Lymphocytes # (Manual) Monocytes # (Manual) 1.3 H Eosinophils # (Manual) Basophils # (Manual) 0.2 H PT INR D-Dimer ABG pH POC ABG pCO2 POC ABG pO2 ABG pO2 ABG HCO3 ABG O2 Saturation ABG Base Excess ABG Hemoglobin ABG Oxyhemoglobin ABG Potassium ABG Glucose Oxyhemoglobin Carboxyhemoglobin Sodium Potassium Chloride 97.7 L Carbon Dioxide 32 H BUN Creatinine < 0.2 L Glucose 114 H POC Glucose 131 H Calcium Ferritin Total Bilirubin Alkaline Phosphatase Lactate Dehydrogenase Troponin T C-Reactive Protein Total Protein Albumin Prealbumin LDL Cholesterol Direct Arterial Blood Glucose Arterial Blood Ionized Calcium Urine WBC (Auto) 03/18/20 03/18/20 03/18/20 00:21 05:21 11:55 WBC RBC Hgb Hct MCV MCH RDW Plt Count Lymph % (Auto) [place] # (Auto) Seg Neutrophils % Seg Neuts % (Manual) Lymphocytes % (Manual) Monocytes % (Manual) Basophils % (Manual) Seg Neutrophils # Seg Neutrophils # Man Lymphocytes # (Manual) Monocytes # (Manual) Eosinophils # (Manual) Basophils # (Manual) PT INR D-Dimer ABG pH POC ABG pCO2 POC ABG pO2 ABG pO2 ABG HCO3 ABG O2 Saturation ABG Base Excess ABG Hemoglobin ABG Oxyhemoglobin ABG Potassium ABG Glucose Oxyhemoglobin Carboxyhemoglobin Sodium Potassium Chloride Carbon Dioxide BUN Creatinine Glucose POC Glucose 124 H 138 H 119 H Calcium Ferritin Total Bilirubin Alkaline Phosphatase Lactate Dehydrogenase Troponin T C-Reactive Protein Total Protein Albumin Prealbumin LDL Cholesterol Direct Arterial Blood Glucose Arterial Blood Ionized Calcium Urine WBC (Auto) 03/18/20 03/18/20 03/19/20 17:03 23:58 05:24 WBC RBC Hgb Hct MCV MCH RDW Plt Count Lymph % (Auto) [place] # (Auto) Seg Neutrophils % Seg Neuts % (Manual) Lymphocytes % (Manual) Monocytes % (Manual) Basophils % (Manual) Seg Neutrophils # Seg Neutrophils # Man Lymphocytes # (Manual) Monocytes # (Manual) Eosinophils # (Manual) Basophils # (Manual) PT INR D-Dimer ABG pH POC ABG pCO2 POC ABG pO2 ABG pO2 ABG HCO3 ABG O2 Saturation ABG Base Excess ABG Hemoglobin ABG Oxyhemoglobin ABG Potassium ABG Glucose Oxyhemoglobin Carboxyhemoglobin Sodium Potassium Chloride Carbon Dioxide BUN Creatinine Glucose POC Glucose 128 H 128 H 115 H Calcium Ferritin Total Bilirubin Alkaline Phosphatase Lactate Dehydrogenase Troponin T C-Reactive Protein Total Protein Albumin Prealbumin LDL Cholesterol Direct Arterial Blood Glucose Arterial Blood Ionized Calcium Urine WBC (Auto) 03/19/20 03/19/20 03/19/20 08:05 08:05 11:56 WBC 16.8 H RBC 3.36 L Hgb 9.4 L Hct 28.8 L MCV MCH RDW 17.4 H Plt Count 567 H Lymph % (Auto) 7.8 L [place] # (Auto) 1.2 H Seg Neutrophils % 83.5 H Seg Neuts % (Manual) Lymphocytes % (Manual) Monocytes % (Manual) Basophils % (Manual) Seg Neutrophils # 14.1 H Seg Neutrophils # Man Lymphocytes # (Manual) Monocytes # (Manual) Eosinophils # (Manual) Basophils # (Manual) PT INR D-Dimer ABG pH POC ABG pCO2 POC ABG pO2 ABG pO2 ABG HCO3 ABG O2 Saturation ABG Base Excess ABG Hemoglobin ABG Oxyhemoglobin ABG Potassium ABG Glucose Oxyhemoglobin Carboxyhemoglobin Sodium Potassium Chloride Carbon Dioxide 36 H BUN Creatinine < 0.2 L Glucose 135 H POC Glucose 128 H Calcium Ferritin Total Bilirubin Alkaline Phosphatase Lactate Dehydrogenase Troponin T C-Reactive Protein Total Protein Albumin Prealbumin LDL Cholesterol Direct Arterial Blood Glucose Arterial Blood Ionized Calcium Urine WBC (Auto) 03/19/20 03/20/20 03/20/20 23:59 05:12 16:52 WBC RBC Hgb Hct MCV MCH RDW Plt Count Lymph % (Auto) [place] # (Auto) Seg Neutrophils % Seg Neuts % (Manual) Lymphocytes % (Manual) Monocytes % (Manual) Basophils % (Manual) Seg Neutrophils # Seg Neutrophils # Man Lymphocytes # (Manual) Monocytes # (Manual) Eosinophils # (Manual) Basophils # (Manual) PT INR D-Dimer ABG pH POC ABG pCO2 POC ABG pO2 ABG pO2 ABG HCO3 ABG O2 Saturation ABG Base Excess ABG Hemoglobin ABG Oxyhemoglobin ABG Potassium ABG Glucose Oxyhemoglobin Carboxyhemoglobin Sodium Potassium Chloride Carbon Dioxide BUN Creatinine Glucose POC Glucose 120 H 131 H 124 H Calcium Ferritin Total Bilirubin Alkaline Phosphatase Lactate Dehydrogenase Troponin T C-Reactive Protein Total Protein Albumin Prealbumin LDL Cholesterol Direct Arterial Blood Glucose Arterial Blood Ionized Calcium Urine WBC (Auto) 03/20/20 03/21/20 03/21/20 23:35 04:50 07:35 WBC 15.2 H RBC 3.39 L Hgb 9.4 L Hct 29.4 L MCV MCH RDW 17.6 H Plt Count 518 H Lymph % (Auto) [place] # (Auto) Seg Neutrophils % Seg Neuts % (Manual) 83.0 H Lymphocytes % (Manual) 10.0 L Monocytes % (Manual) Basophils % (Manual) 2.0 H Seg Neutrophils # Seg Neutrophils # Man 12.6 H Lymphocytes # (Manual) Monocytes # (Manual) Eosinophils # (Manual) Basophils # (Manual) 0.3 H PT INR D-Dimer ABG pH POC ABG pCO2 POC ABG pO2 ABG pO2 ABG HCO3 ABG O2 Saturation ABG Base Excess ABG Hemoglobin ABG Oxyhemoglobin ABG Potassium ABG Glucose Oxyhemoglobin Carboxyhemoglobin Sodium Potassium Chloride Carbon Dioxide BUN Creatinine Glucose POC Glucose 125 H 127 H Calcium Ferritin Total Bilirubin Alkaline Phosphatase Lactate Dehydrogenase Troponin T C-Reactive Protein Total Protein Albumin Prealbumin LDL Cholesterol Direct Arterial Blood Glucose Arterial Blood Ionized Calcium Urine WBC (Auto) 03/21/20 03/21/20 03/21/20 07:35 11:45 17:22 WBC RBC Hgb Hct MCV MCH RDW Plt Count Lymph % (Auto) [place] # (Auto) Seg Neutrophils % Seg Neuts % (Manual) Lymphocytes % (Manual) Monocytes % (Manual) Basophils % (Manual) Seg Neutrophils # Seg Neutrophils # Man Lymphocytes # (Manual) Monocytes # (Manual) Eosinophils # (Manual) Basophils # (Manual) PT INR D-Dimer ABG pH POC ABG pCO2 POC ABG pO2 ABG pO2 ABG HCO3 ABG O2 Saturation ABG Base Excess ABG Hemoglobin ABG Oxyhemoglobin ABG Potassium ABG Glucose Oxyhemoglobin Carboxyhemoglobin Sodium 136 L Potassium Chloride 97.7 L Carbon Dioxide 32 H BUN Creatinine < 0.2 L Glucose 103 H POC Glucose 126 H 120 H Calcium Ferritin Total Bilirubin Alkaline Phosphatase Lactate Dehydrogenase Troponin T C-Reactive Protein Total Protein Albumin Prealbumin LDL Cholesterol Direct Arterial Blood Glucose Arterial Blood Ionized Calcium Urine WBC (Auto) 03/22/20 03/22/20 03/22/20 05:09 06:34 06:34 WBC 17.5 H RBC 3.52 L Hgb 10.0 L Hct 30.7 L MCV MCH RDW 17.5 H Plt Count 499 H Lymph % (Auto) [place] # (Auto) Seg Neutrophils % Seg Neuts % (Manual) 80.0 H Lymphocytes % (Manual) 10.0 L Monocytes % (Manual) Basophils % (Manual) Seg Neutrophils # Seg Neutrophils # Man 14.0 H Lymphocytes # (Manual) Monocytes # (Manual) Eosinophils # (Manual) Basophils # (Manual) PT INR D-Dimer ABG pH POC ABG pCO2 POC ABG pO2 ABG pO2 ABG HCO3 ABG O2 Saturation ABG Base Excess ABG Hemoglobin ABG Oxyhemoglobin ABG Potassium ABG Glucose Oxyhemoglobin Carboxyhemoglobin Sodium Potassium Chloride 96.6 L Carbon Dioxide 38 H BUN Creatinine < 0.2 L Glucose 139 H POC Glucose 125 H Calcium Ferritin Total Bilirubin Alkaline Phosphatase Lactate Dehydrogenase Troponin T C-Reactive Protein Total Protein Albumin Prealbumin LDL Cholesterol Direct Arterial Blood Glucose Arterial Blood Ionized Calcium Urine WBC (Auto) 03/22/20 03/22/20 03/22/20 11:45 18:00 23:32 WBC RBC Hgb Hct MCV MCH RDW Plt Count Lymph % (Auto) [place] # (Auto) Seg Neutrophils % Seg Neuts % (Manual) Lymphocytes % (Manual) Monocytes % (Manual) Basophils % (Manual) Seg Neutrophils # Seg Neutrophils # Man Lymphocytes # (Manual) Monocytes # (Manual) Eosinophils # (Manual) Basophils # (Manual) PT INR D-Dimer ABG pH POC ABG pCO2 POC ABG pO2 ABG pO2 ABG HCO3 ABG O2 Saturation ABG Base Excess ABG Hemoglobin ABG Oxyhemoglobin ABG Potassium ABG Glucose Oxyhemoglobin Carboxyhemoglobin Sodium Potassium Chloride Carbon Dioxide BUN Creatinine Glucose POC Glucose 135 H 133 H Calcium Ferritin Total Bilirubin Alkaline Phosphatase Lactate Dehydrogenase Troponin T 0.113 H* C-Reactive Protein Total Protein Albumin Prealbumin LDL Cholesterol Direct Arterial Blood Glucose Arterial Blood Ionized Calcium Urine WBC (Auto) 03/23/20 03/23/20 03/23/20 01:47 06:21 07:57 WBC RBC Hgb Hct MCV MCH RDW Plt Count Lymph % (Auto) [place] # (Auto) Seg Neutrophils % Seg Neuts % (Manual) Lymphocytes % (Manual) Monocytes % (Manual) Basophils % (Manual) Seg Neutrophils # Seg Neutrophils # Man Lymphocytes # (Manual) Monocytes # (Manual) Eosinophils # (Manual) Basophils # (Manual) PT INR D-Dimer ABG pH POC ABG pCO2 POC ABG pO2 ABG pO2 ABG HCO3 ABG O2 Saturation ABG Base Excess ABG Hemoglobin ABG Oxyhemoglobin ABG Potassium ABG Glucose Oxyhemoglobin Carboxyhemoglobin Sodium Potassium Chloride Carbon Dioxide BUN Creatinine Glucose POC Glucose 130 H Calcium Ferritin Total Bilirubin Alkaline Phosphatase Lactate Dehydrogenase Troponin T 0.143 H* D 0.105 H* D C-Reactive Protein Total Protein Albumin Prealbumin LDL Cholesterol Direct Arterial Blood Glucose Arterial Blood Ionized Calcium Urine WBC (Auto) Allied health notes reviewed: RT
[2020-03-23] MEDS: MORPHINE 2 MG/1 ML INJ IV PRN ×2 (11:31→18:36)
--- NOTE | 2020-03-23 11:44 | Progress Note ---
Assessment and Plan Assessment and plan: --Acute hypoxic hypercapnic respiratory failure; Intubated on mechanical ventilation. Etiology secondary to sepsis, ALS, multifocal pneumonia (Covid negative). --ALS --Elevated D-dimers; CTA chest, lower extremity venous Doppler both are negative Lovenox DVT prophylaxis --Bilateral pneumonia; probably community-acquired Versus atypical, empiric antibiotics Rocephin and Zithromax Cultures, check pro calcitonin --Sepsis secondary to pneumonia Leukocytosis, tachycardia, pneumonia on chest x-ray --Elevated troponin; Serial cardiac enzymes, serial EKGs Echocardiogram, cardiology consult if needed --Hypokalemia; replaced with KCl Monitor levels --Hyponatremia; IV fluids Closely monitor electrolytes --DVT prophylaxis; Lovenox Admit to ICU for close observation 02/25/2020. CTA of the chest reveals no PE but does illustrate the bilateral pneumonia. Doppler ultrasound also negative for DVT. Blood cultures are pending. Await COVID-19 testing. Patient currently requiring BiPAP IPAP 24/E PAP 6 with FiO2 of 25%. Continue O2 and BiPAP as clinically indicated. ID and pulmonary consulted. 02/26/2020. Blood cultures are negative x48 hours and Covid testing negative as well. Continue antibiotics per ID recommendations for community-acquired bilateral pneumonia. Cardiology consultation for elevated troponin. Check echocardiogram. 02/27/2020. Events of yesterday noted with asystole following V. fib arrest. Patient currently on AC mode rate 20, tidal volume 400, FiO2 50% and a PEEP of 6. Follow-up echocardiogram for elevated troponin. Cardiology suspects NSTEMI Type 2 in the setting of acute resp failure. Chest CTA and BLE Dopplers neg. we will discontinue Decadron given the Covid PCR is negative. 02/28/2020. I spoke with the sister Felisa Eli who is the power of it technical support specialist regarding advanced directives and she instructed me that she would like to continue with aggressive care at this time. I informed her of the guarded prognosis and high mortality/morbidity and she voiced understanding. Patient currently with AC mode ventilation rate 18, tidal volume 400, FiO2 40% and a PEEP of 6. Continue antibiotics for pneumonia. ID previously consulted. Also consult neurology with regards to ALS. 02/29/2020; patient is intubated and on CPAP patient is alert and oriented. Patient has ALS. Dr. Álvarez spoke with his sister and she wants aggressive care. Continue antibiotics for pneumonia. Neurology consulted for ALS. Prognosis poor 03/01/2020; patient is intubated and on CPAP, patient is alert and oriented. I spoke with his 2 sisters about the management plan. 03/02/2020; patient is intubated and on CPAP. Patient was alert and oriented. I spoke with Dr. mohr and he thinks patient may need mechanical ventilation, likely his disease progressed. Dr. Flowers did debridement this morning. 03/03/2020; patient is intubated and on CPAP, patient was on trilogy and BiPAP at home. Patient has ALS. on spontaneous breathing trial. Patient is alert and oriented but quadriplegic. Patient has severe bilateral pneumonia and is on cefepime and Vanco, ID is following. Patient has sacral decubitus ulcer and debridement was done by Dr. Flowers and there is no osteomyelitis. 03/05. Patient still on broad-spectrum antibiotics. Status post sacral de cubitus ulcer debridements-no osteomyelitis. Patient is on AC 25/400/30% PEEP 5. No blood gas results today. 03/06. Plan for tracheostomy by surgery. Still remains intubated. Labs reviewed-sodium 150. Started on free water 200 every 8hr. trend sodium. 03/07: s/p trach placement today, patient placed back on mechanical ventilation with trach. Plan to resume tube feeding with NG tube. Continue to monitor vitals, monitor BMP. 03/08: Patient noted to have distended abdomen with low urinary output. Obtain bladder scan rule out urine retention, UA and urine culture, continue to follow clinically. 03/09: Patient noted to have low blood pressure with SBP as low as 70s. Ordered for 500 mils normal saline bolus. CT abdomen showed bladder outlet obstruction, urology consulted. 03/10: placed on drake by urology o/n, improved urine outpt. cont to monitor BMP. resuded TF - cont free water with TF. wean off from vent as tolerated. 03/11: Vitals stable. cont TF, wean off from vent as tolerated. start on 1/2 NS for hypernatremia - follow BMP 03/12: wean off vent as tolerated, plan for speech eval, cont Tf for now, cont iv fluid 03/13: unable to wean off from vent, unable to do speech therapy eval. will need PEG tube, cont supportive care for now, cont NG tube feeding 03/14: consulted GI for PEg placemnet, cont supportive care. remains on vent at night 03/15: Discussed with GI, plan for PEG tube placement possibly tomorrow. Continue supportive care and wean off from vent as tolerated. Hold Lovenox dose tonight. 03/16: family didnot consent for PEG placement yesterday. I spoke with the daughter today and she is now agreeable for PEG tube. I explained the necessity of the procedure with RN to the patient also and he nodded started on tube feeding, for the procedure. will cont supportive care. planned for PEG tube placement tomorrow. 03/17: s/p PEG placement today, patient tolerated well, cont supportive care 03/18: Started on tube feeding with new PEG tube, continue to wean off vent as tolerated 03/19: cont to monitor with supportive care, wean off vent as tolerated 03/20: Continue to wean off vent as tolerated -but failing weaning trial. Still requiring vent support at night. Currently on PEG tube for tube feed. 03/21. Pt with PSV trials with FiO@ 30%, PEEP 6, PS 10. Currently on PEG tube for tube feed. 03/22/2020. Continue PSV trials per pulmonary. Continue bronchodilators. Patient tolerating tube feedings. Continue Robinul for secretion control. 03/23/2020. Continue PSV trials per pulmonary. Continue bronchodilators. Continue Scopolamine and Robinul for secretion control. Trach care/airway management. Mobility protocols for pressure ulcer prophylaxis. LTAC evaluation per case management The high probability of a clinically significant, sudden or life threatening deterioration of the [cardiac and respiratory] system(s) required my full and direct attention, intervention and personal management. The aggregate critical care time was [31] minutes. This time is in addition to time spent performing reported procedures but includes the following: [x] Data Review and interpretation [x] Patient assessment and monitoring of vital signs [x] Documentation [x] Medication orders and management History Interval history: 59-year-old male patient with significant past medical history of ALS, presented to ED with worsening shortness of breath since the morning [employer]. Guerrero keating was on a trilogy machine for breathing 18/11. EMS arrived, patient had O2 sats in the 80s. EMS attempted to place patient on their CPAP machine, however patient did not tolerate. Patient was admitted to the ICU with diagnosis of acute hypoxic respiratory failure and placed on BiPAP. Patient initially tolerated but later deteriorated with respiratory status. Therefore, patient was intubated on 02/26/2020 at 1500. Patient now on mechanical ventilation in the ICU. Hospitalist Physical - Constitutional Vitals: Temp Pulse Resp BP Pulse Ox 99.0 F 89 24 133/95 99 03/23/20 08:00 03/23/20 11:00 03/23/20 11:00 03/23/20 11:00 03/23/20 11:00 General appearance: Present: mild distress, other (Intubated on mechanical ventilation) - EENT Eyes: Present: PERRL, EOM intact ENT: hearing intact, clear oral mucosa, dentition normal - Neck Neck: Present: supple, normal ROM - Respiratory Respiratory effort: normal Respiratory: bilateral: CTA - Cardiovascular Rhythm: regular Heart Sounds: Present: S1 & S2. Absent: gallop, rub - Extremities Extremities: no ischemia, No edema, Full ROM - Abdominal General gastrointestinal: soft, non-tender, non-distended, normal bowel sounds - Integumentary Integumentary: Present: clear, warm, dry - Neurologic Neurologic: CNII-XII intact, moves all extremities HEART Score - HEART Score Troponin: Troponin T 0.105 ng/mL (0.00-0.029) H* D 03/23/20 07:57 Results - Labs CBC & Chem 7: 03/22/20 06:34 03/22/20 06:34 Labs: Laboratory Last Values WBC 17.5 K/mm3 (4.5-11.0) H 03/22/20 06:34 RBC 3.52 M/mm3 (3.65-5.03) L 03/22/20 06:34 Hgb 10.0 gm/dl (11.8-15.2) L 03/22/20 06:34 Hct 30.7 % (35.5-45.6) L 03/22/20 06:34 MCV 87 fl (84-94) 03/22/20 06:34 MCH 29 pg (28-32) 03/22/20 06:34 MCHC 33 % (32-34) 03/22/20 06:34 RDW 17.5 % (13.2-15.2) H 03/22/20 06:34 Plt Count 499 K/mm3 (140-440) H 03/22/20 06:34 Lymph % (Auto) 7.8 % (13.4-35.0) L 03/19/20 08:05 [place] % (Auto) 7.3 % (0.0-7.3) 03/19/20 08:05 Eos % (Auto) 1.0 % (0.0-4.3) 03/19/20 08:05 Baso % (Auto) 0.7 % (0.0-1.8) 03/12/20 04:39 Lymph # (Auto) 1.3 K/mm3 (1.2-5.4) 03/19/20 08:05 [place] # (Auto) 1.2 K/mm3 (0.0-0.8) H 03/19/20 08:05 Eos # (Auto) 0.2 K/mm3 (0.0-0.4) 03/19/20 08:05 Baso # (Auto) 0.1 K/mm3 (0.0-0.1) 03/19/20 08:05 Add Manual Diff Complete 03/22/20 06:34 Total Counted 100 03/22/20 06:34 Seg Neutrophils % 83.5 % (40.0-70.0) H 03/19/20 08:05 Seg Neuts % (Manual) 80.0 % (40.0-70.0) H 03/22/20 06:34 Band Neutrophils % 1.0 % 03/22/20 06:34 Lymphocytes % (Manual) 10.0 % (13.4-35.0) L 03/22/20 06:34 Reactive Lymphs % (Man) 0 % 03/22/20 06:34 Monocytes % (Manual) 4.0 % (0.0-7.3) 03/22/20 06:34 Eosinophils % (Manual) 1.0 % (0.0-4.3) 03/22/20 06:34 Basophils % (Manual) 0 % (0.0-1.8) 03/22/20 06:34 Metamyelocytes % 1.0 % 03/22/20 06:34 Myelocytes % 3.0 % 03/22/20 06:34 Promyelocytes % 0 % 03/22/20 06:34 Blast Cells % 0 % 03/22/20 06:34 Nucleated RBC % Not Reportable 03/22/20 06:34 Seg Neutrophils # 14.1 K/mm3 (1.8-7.7) H 03/19/20 08:05 Seg Neutrophils # Man 14.0 K/mm3 (1.8-7.7) H 03/22/20 06:34 Band Neutrophils # 0.2 K/mm3 03/22/20 06:34 Lymphocytes # (Manual) 1.8 K/mm3 (1.2-5.4) 03/22/20 06:34 Abs React Lymphs (Man) 0.0 K/mm3 03/22/20 06:34 Monocytes # (Manual) 0.7 K/mm3 (0.0-0.8) 03/22/20 06:34 Eosinophils # (Manual) 0.2 K/mm3 (0.0-0.4) 03/22/20 06:34 Basophils # (Manual) 0.0 K/mm3 (0.0-0.1) 03/22/20 06:34 Metamyelocytes # 0.2 K/mm3 03/22/20 06:34 Myelocytes # 0.5 K/mm3 03/22/20 06:34 Promyelocytes # 0.0 K/mm3 03/22/20 06:34 Blast Cells # 0.0 K/mm3 03/22/20 06:34 WBC Morphology Not Reportable 03/22/20 06:34 Hypersegmented Neuts Not Reportable 03/22/20 06:34 Hyposegmented Neuts Not Reportable 03/22/20 06:34 Hypogranular Neuts Not Reportable 03/22/20 06:34 Smudge Cells Not Reportable 03/22/20 06:34 Toxic Granulation Not Reportable 03/22/20 06:34 Toxic Vacuolation Not Reportable 03/22/20 06:34 Dohle Bodies Not Reportable 03/22/20 06:34 Pelger-Huet Anomaly Not Reportable 03/22/20 06:34 Robert Rods Not Reportable 03/22/20 06:34 Platelet Estimate Consistent w auto 03/22/20 06:34 Clumped Platelets Not Reportable 03/22/20 06:34 Plt Clumps, EDTA Not Reportable 03/22/20 06:34 Large Platelets Not Reportable 03/22/20 06:34 Giant Platelets Not Reportable 03/22/20 06:34 Platelet Satelliting Not Reportable 03/22/20 06:34 Plt Morphology Comment Not Reportable 03/22/20 06:34 RBC Morphology Normal 03/22/20 06:34 Dimorphic RBCs Not Reportable 03/22/20 06:34 Polychromasia Not Reportable 03/22/20 06:34 Hypochromasia Not Reportable 03/22/20 06:34 Poikilocytosis Not Reportable 03/22/20 06:34 Anisocytosis Not Reportable 03/22/20 06:34 Microcytosis Not Reportable 03/22/20 06:34 Macrocytosis Not Reportable 03/22/20 06:34 Spherocytes Not Reportable 03/22/20 06:34 Pappenheimer Bodies Not Reportable 03/22/20 06:34 Sickle Cells Not Reportable 03/22/20 06:34 Target Cells Not Reportable 03/22/20 06:34 Tear Drop Cells Not Reportable 03/22/20 06:34 Ovalocytes Not Reportable 03/22/20 06:34 Stomatocytes Few 03/17/20 04:40 Helmet Cells Not Reportable 03/22/20 06:34 [place] Bodies Not Reportable 03/22/20 06:34 [place] Rings Not Reportable 03/22/20 06:34 [place] Cells Not Reportable 03/22/20 06:34 Bite Cells Not Reportable 03/22/20 06:34 Crenated Cell Not Reportable 03/22/20 06:34 Elliptocytes Not Reportable 03/22/20 06:34 Acanthocytes (Spur) Not Reportable 03/22/20 06:34 Rouleaux Not Reportable 03/22/20 06:34 Hemoglobin C Crystals Not Reportable 03/22/20 06:34 Schistocytes Not Reportable 03/22/20 06:34 Malaria parasites Not Reportable 03/22/20 06:34 [place] Bodies Not Reportable 03/22/20 06:34 Hem Pathologist Commnt No 03/22/20 06:34 PT 15.6 Sec. (12.2-14.9) H 02/24/20 09:19 INR 1.21 (0.87-1.13) H 02/24/20 09:19 APTT 25.4 Sec. (24.2-36.6) 02/24/20 09:19 D-Dimer 1311.96 ng/mlDDU (0-234) H 02/24/20 09:19 ABG pH 7.371 (7.320-7.450) 03/08/20 12:34 POC ABG pCO2 63.1 mmHg (32.0-48.0) H 03/08/20 12:34 ABG pCO2 60.1 mm Hg 03/06/20 04:34 POC ABG pO2 90.5 mmHg (83-108) 03/08/20 12:34 ABG pO2 88.6 mm Hg (80.0-90.0) 03/06/20 04:34 POC ABG HCO3 35.7 03/08/20 12:34 ABG HCO3 37.9 mmol/L (20.0-26.0) H 03/06/20 04:34 ABG O2 Saturation 97.0 % (95.0-99.0) 03/06/20 04:34 ABG O2 Content 14.3 (0.0-44) 03/06/20 04:34 POC ABG Base Excess 8.7 03/08/20 12:34 ABG Base Excess 11.4 mmol/L (-2.0-3.0) H 03/06/20 04:34 ABG Hemoglobin 10.9 (12.0-17.5) L 03/08/20 12:34 ABG Oxyhemoglobin 95.9 (94-98) 03/08/20 12:34 ABG Carboxyhemoglobin 1.7 % (0.0-5.0) 03/06/20 04:34 ABG Methemoglobin 0.3 (0.0-1.5) 03/08/20 12:34 ABG Sodium 143.6 mmol/L (136.0-145.0) 03/08/20 12:34 ABG Potassium 3.8 mmol/L (3.40-4.50) 03/08/20 12:34 ABG Chloride 102.0 mmol/L (98-107) 03/08/20 12:34 ABG Glucose 176 mg/dL (65-95) H 03/08/20 12:34 Oxyhemoglobin 94.7 % (95.0-99.0) L 03/06/20 04:34 Carboxyhemoglobin 0.7 (0.5-1.5) 03/08/20 12:34 FiO2 30 03/08/20 12:34 Sodium 140 mmol/L (137-145) 03/22/20 06:34 Potassium 4.3 mmol/L (3.6-5.0) 03/22/20 06:34 Chloride 96.6 mmol/L (98-107) L 03/22/20 06:34 Carbon Dioxide 38 mmol/L (22-30) H 03/22/20 06:34 Anion Gap 10 mmol/L 03/22/20 06:34 BUN 15 mg/dL (9-20) 03/22/20 06:34 Creatinine < 0.2 mg/dL (0.8-1.3) L 03/22/20 06:34 Estimated GFR > 60 ml/min 03/22/20 06:34 BUN/Creatinine Ratio 75 % 03/22/20 06:34 Glucose 139 mg/dL (75-100) H 03/22/20 06:34 POC Glucose 130 mg/dL (70-105) H 03/23/20 06:21 Lactic Acid 1.00 mmol/L (0.7-2.0) 02/24/20 12:07 Calcium 8.8 mg/dL (8.4-10.2) 03/22/20 06:34 Phosphorus 3.30 mg/dL (2.5-4.5) 03/20/20 14:18 Magnesium 2.00 mg/dL (1.7-2.3) 03/20/20 14:18 Ferritin 1715.0 ng/mL (30.0-300.0) H 02/24/20 10:01 Total Bilirubin 0.60 mg/dL (0.1-1.2) 03/08/20 06:43 AST 34 units/L (5-40) 03/08/20 06:43 ALT 14 units/L (7-56) 03/08/20 06:43 Alkaline Phosphatase 56 units/L (35-129) 03/08/20 06:43 Lactate Dehydrogenase 303 units/L (91-180) H 02/24/20 09:19 Total Creatine Kinase 101 units/L (55-170) 02/24/20 19:35 CK-MB (CK-2) 3.5 ng/mL (0.0-4.0) 02/24/20 19:35 CK-MB (CK-2) Rel Index 3.4 (0-4) 02/24/20 19:35 Troponin T 0.105 ng/mL (0.00-0.029) H* D 03/23/20 07:57 C-Reactive Protein 4.70 mg/dL (0.00-1.30) H 02/28/20 11:05 NT-Pro-B Natriuret Pep 48.30 pg/mL (0-900) 02/24/20 09:19 Total Protein 5.9 g/dL (6.3-8.2) L 03/08/20 06:43 Albumin 3.2 g/dL (3.9-5) L 03/08/20 06:43 Albumin/Globulin Ratio 1.2 % 03/08/20 06:43 Prealbumin 0.090 g/L (0.200-0.400) L 02/28/20 12:54 Triglycerides 34 mg/dL (2-149) 03/22/20 18:00 Cholesterol 104 mg/dL (50-199) 03/22/20 18:00 LDL Cholesterol Direct 54 mg/dL (50-130) 03/22/20 18:00 HDL Cholesterol 40 mg/dL (40-59) 03/22/20 18:00 Cholesterol/HDL Ratio 2.60 % 03/22/20 18:00 Procalcitonin 0.16 ng/mL (<0.15) 03/09/20 08:35 Arterial Blood Glucose 176 mg/dL (65-95) H 03/08/20 12:34 Arterial Blood Ionized Calcium 4.5 mg/dL (4.6-5.3) L 03/08/20 12:34 Urine Color Yellow (Yellow) 03/08/20 08:57 Urine Turbidity Clear (Clear) 03/08/20 08:57 Urine pH 6.0 (5.0-7.0) 03/08/20 08:57 Ur Specific [place] 1.017 (1.003-1.030) 03/08/20 08:57 Urine Protein <15 mg/dl mg/dL (Negative) 03/08/20 08:57 Urine Glucose (UA) Neg mg/dL (Negative) 03/08/20 08:57 Urine Ketones Neg mg/dL (Negative) 03/08/20 08:57 Urine Blood Neg (Negative) 03/08/20 08:57 Urine Nitrite Neg (Negative) 03/08/20 08:57 Urine Bilirubin Neg (Negative) 03/08/20 08:57 Urine Urobilinogen < 2.0 mg/dL (<2.0) 03/08/20 08:57 Ur Leukocyte Esterase Neg (Negative) 03/08/20 08:57 Urine WBC (Auto) 10.0 /HPF (0.0-6.0) H 03/08/20 08:57 Urine RBC (Auto) 13.0 /HPF (0.0-6.0) 03/08/20 08:57 U Epithel Cells (Auto) < 1.0 /HPF (0-13.0) 03/08/20 08:57 Urine Bacteria (Auto) 2+ /HPF (Negative) 03/08/20 08:57 Urine Mucus Few /HPF 03/08/20 08:57 Urine Yeast (Budding) 3+ /HPF 03/08/20 08:57 Vancomycin Trough 8.0 ug/mL (5.0-20.0) 03/04/20 08:59 Coronavirus (PCR) Negative (Negative) 02/25/20 09:03 - Diagnostic Impressions Diagnostic Impressions: Echocardiogram 02/26/20 10:41 Transthoracic Echocardiogram Indication: Elevated Trop BP: 116/75 HR: 85 Conclusions *Global left ventricular wall motion and contractility are within normal limits. *The estimated ejection fraction is 50-55%. *Abnormal left ventricular diastolic filling is observed, consistent with impaired relaxation. *There is no pericardial effusion. Findings Left Ventricle: The left ventricular chamber size is normal. Global left ventricular wall motion and contractility are within normal limits. Global left ventricular systolic function is normal. The estimated ejection fraction is 50-55%. Abnormal left ventricular diastolic filling is observed, consistent with impaired relaxation. Left Atrium: The left atrial chamber size is normal. Right Ventricle: The right ventricular cavity size is normal. Right Atrium: The right atrial cavity size is normal. Aortic Valve: Mild aortic leaflet calcification is visualized. There is no evidence of aortic regurgitation. Mitral Valve: The mitral valve leaflets are mildly thickened. There is no evidence of mitral regurgitation. Tricuspid Valve: The tricuspid valve leaflets are normal. There is trace tricuspid regurgitation. The right ventricular systolic pressure is calculated at 29 mmHg. Pulmonic Valve: The pulmonic valve is not well visualized. Pericardium: There is no pericardial effusion. Aorta: The aorta appears normal. Venous: The inferior vena cava is dilated. There is less than 50% respiratory change in the inferior vena cava dimension. Measurements Chambers 2D Name Value Normal Range IVSd (2D) 0.97 cm (0.6 - 1.1) LVPWd (2D) 0.93 cm (0.6 - 1.1) LVIDd (2D) 4 cm (3.7 - 5.6) LVIDs (2D) 2.73 cm (2 - 3.8) LV FS (2D) 31.67 % - EF Teichholz (2D) 60.23 % - Ao root diameter (2D) 3.51 cm (2 - 3.7) Volumes/Mass Name Value Normal Range LA ESV SP 4CH (A/L) 8.43 ml - LA ESV SP 2CH (A/L) 18.89 ml - LA ESV BP (A/L) 13.02 ml - LA ESV BP (A/L) index 8.8 ml/m2 - LA ESV SP 4CH (MOD) 7.22 ml - LA ESV SP 2CH (MOD) 18.15 ml - LA ESV BP (MOD) 11.47 ml - LA ESV BP (MOD) index 7.75 ml/m2 - Diastolic/Systolic Function Name Value Normal Range MV E-wave Vmax 0.51 m/sec - MV deceleration time 180.22 msec - MV A-wave Vmax 0.62 m/sec - MV E:A ratio 0.82 ratio - Aortic Valve Name Value Normal Range AV Vmax 1.17 m/sec - AV VTI 19.71 cm - AV peak gradient 5.44 mmHg - AV mean gradient 3.38 mmHg - LVOT diameter 2.26 cm - LVOT Vmax 0.89 m/sec - LVOT VTI 13.72 cm - LVOT peak gradient 3.17 mmHg - LVOT mean gradient 1.67 mmHg - SV LVOT 55.03 ml - SHARAD (continuity Vmax) 3.06 cm2 - SHARAD (continuity VTI) 2.79 cm2 - Tricuspid Valve Name Value Normal Range TR Vmax 2.3 m/sec - TR peak gradient 21 mmHg - RAP 8 mmHg - RVSP 29 mmHg - IVC diameter 2.59 cm (1.2 - 2.3) Pulmonic Valve/Qp:Qs Name Value Normal Range PV acceleration time 68.51 msec - Drake/IV: Voiding Method Indwelling Catheter IV Catheter Type [Right Hand] Peripheral IV IV Catheter Type [Left Wrist] Peripheral IV IV Catheter Type [Right Peripheral IV Forearm] IV Catheter Type [Right Triple Lumen Cath Internal Jugular] IV Catheter Type [Left Forearm INT / Saline Lock ] IV Catheter Type [Right Triple Lumen Cath Femoral] IV Catheter Type [Right INT / Saline Lock Antecubital] Active Medications - Current Medications Current Medications: Generic Name Dose Route Start Last Admin Trade Name Freq PRN Reason Stop Dose Admin Acetaminophen 650 mg 02/24/20 15:13 03/08/20 00:10 Tylenol PO 650 mg Q4H PRN Administration Pain, Mild (1-3) Albuterol 2.5 mg 02/24/20 15:13 Proventil IH Q4HRT PRN Shortness Of Breath Lipase/Protease/Amylase 1 each 02/26/20 11:[address] 10,500 Unit FEEDTUBE PRN PRN For Clogged Feeding Tube Bisacodyl 10 mg 03/12/20 18:00 03/15/20 17:50 Dulcolax [place] 10 mg QDAY PRN Administration Bowel Movement Docusate Sodium 100 mg 03/12/20 22:00 03/23/20 09:07 Colace PO 100 mg BID ALISA Administration Enoxaparin Sodium 40 mg 03/20/20 22:00 03/22/20 22:29 Enoxaparin SUB-Q 40 mg QDAY@2200 ALISA Administration Protocol Glycopyrrolate 2 mg 03/08/20 20:00 03/23/20 08:07 Glycopyrrolate PO 2 mg TID ALISA Administration Lansoprazole 30 mg 02/28/20 10:00 03/23/20 09:08 Prevacid Solutab FEEDTUBE 30 mg QDAY ALISA Administration Metoprolol Tartrate 12.5 mg 02/24/20 22:00 03/23/20 09:07 Metoprolol PO 12.5 mg BID ALISA Administration Morphine Sulfate 2 mg 02/29/20 16:42 03/23/20 11:31 Morphine IV 2 mg Q4H PRN Administration Pain, Moderate (4-6) Polyethylene Glycol 17 gm 03/12/20 22:00 03/22/20 22:29 Miralax 3350 PO 17 gm QHS ALISA Administration Scopolamine 1 each 03/03/20 14:00 03/21/20 10:36 Transderm-Scop TD 1 each Q3D ALISA Administration Simple Syrup 15 ml 02/26/20 11:16 Simple Syrup FEEDTUBE PRN PRN Hypoglycemia Simple Syrup 30 ml 02/26/20 11:16 Simple Syrup FEEDTUBE PRN PRN Hypoglycemia Sodium Bicarbonate 325 mg 02/26/20 11:16 Sodium Bicarbonate FEEDTUBE PRN PRN For Clogged Feeding Tube Tamsulosin HCl 0.4 mg 03/09/20 18:00 03/23/20 09:08 Flomax PO 0.4 mg QDAY ALISA Administration Nutrition/Malnutrition Assess - Dietary Evaluation Nutrition/Malnutrition Findings: Nutrition Notes Start: 02/26/20 10:40 Freq: Status: Active Protocol: Document 03/21/20 13:36 LP (Rec: 03/21/20 13:41 LP [id number]) Nutrition Notes Initial or Follow up Reassessment Current Diagnosis Decubitus(Pressure Ulcer), Sepsis,Respiratory Failure Other Pertinent Diagnosis COVID-19 (-), ALS, pneumonia, Hip/buttock PU Current Diet Vital AF 1.2 at 75ml/hr (goal rate) Labs/Tests Na 136 Pertinent Medications Reviewed Height 6 ft Weight 66.4 kg Mize Body Weight (kg) 80.90 BMI 19.8 Weight Status Appropriate Subjective/Other Information Pt continues tolerating TF at goal rate. PEG placed. Percent of energy/protein needs met: 100%/100% Burn Absent Trauma Absent GI Symptoms None Skin Integrity/Comment Pressure Ulcer Stage 2 Current % PO Negligible Minimum of two criteria Yes Body Fat Depletion Mild depletion (non-severe) Muscle Mass Mild Depletion (non-severe) Reduced Executive Admin Strength Measurably Reduced (severe) #3 Nutrition Diagnosis Malnutrition Diagnosis Progress(for reassessment Continues documentation) #2 Nutrition Diagnosis Inadequate oral intake Diagnosis Progress(for reassessment Continues documentation) #1 Nutrition Diagnosis Increased nutrient needs ( specify in comment below) Diagnosis Progress(for reassessment Continues documentation) Is patient on ventilator? Yes Is Patient Ambulatory and/or Out of Bed No REE-([place]-St. Jeor-confined to bed) 1825.272 Kcal/Kg value to use for calculation 35 Approximate Energy Requirements Using 2324 kcal/Kg Calculation Used for Recommendations Kcal/kg Additional Notes Protein needs: 80-133 g (1.2-2 g/ kg ABW) Fluid: 1ml/kcal Nutrition Intervention Change Diet Order: Continue TF Nutrition Support: Vital AF 1.2 at 75ml/hr. Flush 200ml q4h For hyponatremia, flush 150 mL q4h Kcal 2,160 Protein (gm) 135 Fluid (mL) 1,460 Add Supplement/Snack (indicate name/kcal Will BID /protein ) Provides kCal: 190 Provides Protein (gm) 5 Goal #1 Meet at least 80% of energy and protein needs via TF Goal #2 Wound healing Anticipated Discharge Needs: Unable to determine at this time Follow-Up By: 03/28/20 Additional Comments Follow for stable TF
[2020-03-23] MEDS: POLYETHYLENE GLYCOL 3350 17 GM POWDER PO SCH (22:58)
[2020-03-23] MEDS: ENOXAPARIN 40 MG/0.4 ML INJ SUB-Q SCH (22:58)
[2020-03-24] MEDS: MORPHINE 2 MG/1 ML INJ IV PRN ×3 (05:38→20:26)
[2020-03-24 08:04] LABS: Mean Corpuscular HGB Conc 32 % (32-34); Mean Corpuscular Volume 86 fl (84-94); Mean Platelet Volume 6.4 fl (6-12); Platelet Count 520 K/mm3 (140-440); Red Blood Count 3.98 M/mm3 (3.65-5.03); Red Cell Distribution Width 17.4 % (13.2-15.2)
[2020-03-24 08:17] LABS: Blood Urea Nitrogen 14 mg/dL (9-20); Calcium 8.9 mg/dL (8.4-10.2); Hemolysis Index 0
[2020-03-24 08:45] LABS: BUN/Creatinine Ratio 70
[2020-03-24 08:58] LABS: Basophils % (Manual) 0 % (0.0-1.8); Myelocytes # (Manual) 0.2 K/mm3; Total Cells Counted 100
[2020-03-24 08:59] LABS: Anisocytosis Few; Platelet Estimate Consistent w Auto
[2020-03-24] MEDS: GLYCOPYRROLATE 2 MG TAB PO SCH ×3 (08:59→20:26)
[2020-03-24] MEDS: TAMSULOSIN 0.4 MG CAP PO SCH (09:00)
[2020-03-24] MEDS: DOCUSATE SODIUM 100 MG/10 ML ORAL LIQD PO SCH (09:00)
[2020-03-24] MEDS: LANSOPRAZOLE 30 MG SOLUTAB FEEDTUBE SCH (09:00)
[2020-03-24] MEDS: METOPROLOL TARTRATE 25 MG TAB PO SCH (09:00)
[2020-03-24] MEDS: SCOPOLAMINE TRANSDERMAL PATCH 72 HR TD SCH (09:01)
--- NOTE | 2020-03-24 09:54 | Progress Note ---
Assessment and Plan Assessment and plan: --Acute hypoxic hypercapnic respiratory failure; Intubated on mechanical ventilation. Etiology secondary to sepsis, ALS, multifocal pneumonia (Covid negative). --ALS --Elevated D-dimers; CTA chest, lower extremity venous Doppler both are negative Lovenox DVT prophylaxis --Bilateral pneumonia; probably community-acquired Versus atypical, empiric antibiotics Rocephin and Zithromax Cultures, check pro calcitonin --Sepsis secondary to pneumonia Leukocytosis, tachycardia, pneumonia on chest x-ray --Elevated troponin; Serial cardiac enzymes, serial EKGs Echocardiogram, cardiology consult if needed --Hypokalemia; replaced with KCl Monitor levels --Hyponatremia; IV fluids Closely monitor electrolytes --DVT prophylaxis; Lovenox Admit to ICU for close observation 02/25/2020. CTA of the chest reveals no PE but does illustrate the bilateral pneumonia. Doppler ultrasound also negative for DVT. Blood cultures are pending. Await COVID-19 testing. Patient currently requiring BiPAP IPAP 24/E PAP 6 with FiO2 of 25%. Continue O2 and BiPAP as clinically indicated. ID and pulmonary consulted. 02/26/2020. Blood cultures are negative x48 hours and Covid testing negative as well. Continue antibiotics per ID recommendations for community-acquired bilateral pneumonia. Cardiology consultation for elevated troponin. Check echocardiogram. 02/27/2020. Events of yesterday noted with asystole following V. fib arrest. Patient currently on AC mode rate 20, tidal volume 400, FiO2 50% and a PEEP of 6. Follow-up echocardiogram for elevated troponin. Cardiology suspects NSTEMI Type 2 in the setting of acute resp failure. Chest CTA and BLE Dopplers neg. we will discontinue Decadron given the Covid PCR is negative. 02/28/2020. I spoke with the sister Felisa Eli who is the power of business attorney regarding advanced directives and she instructed me that she would like to continue with aggressive care at this time. I informed her of the guarded prognosis and high mortality/morbidity and she voiced understanding. Patient currently with AC mode ventilation rate 18, tidal volume 400, FiO2 40% and a PEEP of 6. Continue antibiotics for pneumonia. ID previously consulted. Also consult neurology with regards to ALS. 02/29/2020; patient is intubated and on CPAP patient is alert and oriented. Patient has ALS. Dr. Álvarez spoke with his sister and she wants aggressive care. Continue antibiotics for pneumonia. Neurology consulted for ALS. Prognosis poor 03/01/2020; patient is intubated and on CPAP, patient is alert and oriented. I spoke with his 2 sisters about the management plan. 03/02/2020; patient is intubated and on CPAP. Patient was alert and oriented. I spoke with Dr. mohr and he thinks patient may need mechanical ventilation, likely his disease progressed. Dr. Flowers did debridement this morning. 03/03/2020; patient is intubated and on CPAP, patient was on trilogy and BiPAP at home. Patient has ALS. on spontaneous breathing trial. Patient is alert and oriented but quadriplegic. Patient has severe bilateral pneumonia and is on cefepime and Vanco, ID is following. Patient has sacral decubitus ulcer and debridement was done by Dr. Flowers and there is no osteomyelitis. 03/05. Patient still on broad-spectrum antibiotics. Status post sacral de cubitus ulcer debridements-no osteomyelitis. Patient is on AC 25/400/30% PEEP 5. No blood gas results today. 03/06. Plan for tracheostomy by surgery. Still remains intubated. Labs reviewed-sodium 150. Started on free water 200 every 8hr. trend sodium. 03/07: s/p trach placement today, patient placed back on mechanical ventilation with trach. Plan to resume tube feeding with NG tube. Continue to monitor vitals, monitor BMP. 03/08: Patient noted to have distended abdomen with low urinary output. Obtain bladder scan rule out urine retention, UA and urine culture, continue to follow clinically. 03/09: Patient noted to have low blood pressure with SBP as low as 70s. Ordered for 500 mils normal saline bolus. CT abdomen showed bladder outlet obstruction, urology consulted. 03/10: placed on drake by urology o/n, improved urine outpt. cont to monitor BMP. resuded TF - cont free water with TF. wean off from vent as tolerated. 03/11: Vitals stable. cont TF, wean off from vent as tolerated. start on 1/2 NS for hypernatremia - follow BMP 03/12: wean off vent as tolerated, plan for speech eval, cont Tf for now, cont iv fluid 03/13: unable to wean off from vent, unable to do speech therapy eval. will need PEG tube, cont supportive care for now, cont NG tube feeding 03/14: consulted GI for PEg placemnet, cont supportive care. remains on vent at night 03/15: Discussed with GI, plan for PEG tube placement possibly tomorrow. Continue supportive care and wean off from vent as tolerated. Hold Lovenox dose tonight. 03/16: family didnot consent for PEG placement yesterday. I spoke with the daughter today and she is now agreeable for PEG tube. I explained the necessity of the procedure with RN to the patient also and he nodded started on tube feeding, for the procedure. will cont supportive care. planned for PEG tube placement tomorrow. 03/17: s/p PEG placement today, patient tolerated well, cont supportive care 03/18: Started on tube feeding with new PEG tube, continue to wean off vent as tolerated 03/19: cont to monitor with supportive care, wean off vent as tolerated 03/20: Continue to wean off vent as tolerated -but failing weaning trial. Still requiring vent support at night. Currently on PEG tube for tube feed. 03/21. Pt with PSV trials with FiO@ 30%, PEEP 6, PS 10. Currently on PEG tube for tube feed. 03/22/2020. Continue PSV trials per pulmonary. Continue bronchodilators. Patient tolerating tube feedings. Continue Robinul for secretion control. 03/23/2020. Continue PSV trials per pulmonary. Continue bronchodilators. Continue Scopolamine and Robinul for secretion control. Trach care/airway management. Mobility protocols for pressure ulcer prophylaxis. LTAC evaluation per case management 03/24/2020. Continue PSV trials with current settings pressure support 10, PEEP 6 and FiO2 30%. Continue bronchodilators/nebulizer. Continue Scopolamine and Robinul for secretion control. Trach care/airway management. Mobility protocols for pressure ulcer prophylaxis. LTAC evaluation per case management The high probability of a clinically significant, sudden or life threatening deterioration of the [cardiac and respiratory] system(s) required my full and direct attention, intervention and personal management. The aggregate critical care time was [31] minutes. This time is in addition to time spent performing reported procedures but includes the following: [x] Data Review and interpretation [x] Patient assessment and monitoring of vital signs [x] Documentation [x] Medication orders and management History Interval history: 59-year-old male patient with significant past medical history of ALS, presented to ED with worsening shortness of breath since the morning [employer]. Patient was on a trilogy machine for breathing 18/11. EMS arrived, patient had O2 sats in the 80s. EMS attempted to place patient on their CPAP machine, however patient did not tolerate. Patient was admitted to the ICU with diagnosis of acute hypoxic respiratory failure and placed on BiPAP. Patient initially tolerated but later deteriorated with respiratory status. Therefore, patient was intubated on 02/26/2020 at 1500. Patient now on mechanical ventilation in the ICU. Hospitalist Physical - Constitutional Vitals: Temp Pulse Resp BP Pulse Ox 98.4 F 113 H 24 132/84 99 03/24/20 08:00 03/24/20 09:00 03/24/20 08:16 03/24/20 09:00 03/24/20 08:16 General appearance: Present: mild distress, other (Intubated on mechanical ventilation) - EENT Eyes: Present: PERRL, EOM intact ENT: hearing intact, clear oral mucosa, dentition normal - Neck Neck: Present: supple, normal ROM - Respiratory Respiratory effort: normal Respiratory: bilateral: CTA - Cardiovascular Rhythm: regular Heart Sounds: Present: S1 & S2. Absent: gallop, rub - Extremities Extremities: no ischemia, No edema, Full ROM - Abdominal General gastrointestinal: soft, non-tender, non-distended, normal bowel sounds - Integumentary Integumentary: Present: clear, warm, dry - Neurologic Neurologic: CNII-XII intact, moves all extremities HEART Score - HEART Score Troponin: Troponin T 0.105 ng/mL (0.00-0.029) H* D 03/23/20 07:57 Results - Labs CBC & Chem 7: 03/24/20 07:15 03/24/20 07:15 Labs: Laboratory Last Values WBC 18.0 K/mm3 (4.5-11.0) H 03/24/20 07:15 RBC 3.98 M/mm3 (3.65-5.03) 03/24/20 07:15 Hgb 11.0 gm/dl (11.8-15.2) L 03/24/20 07:15 Hct 34.0 % (35.5-45.6) L 03/24/20 07:15 MCV 86 fl (84-94) 03/24/20 07:15 MCH 28 pg (28-32) 03/24/20 07:15 MCHC 32 % (32-34) 03/24/20 07:15 RDW 17.4 % (13.2-15.2) H 03/24/20 07:15 Plt Count 520 K/mm3 (140-440) H 03/24/20 07:15 Lymph % (Auto) 7.8 % (13.4-35.0) L 03/19/20 08:05 [place] % (Auto) 7.3 % (0.0-7.3) 03/19/20 08:05 Eos % (Auto) 1.0 % (0.0-4.3) 03/19/20 08:05 Baso % (Auto) 0.7 % (0.0-1.8) 03/12/20 04:39 Lymph # (Auto) 1.3 K/mm3 (1.2-5.4) 03/19/20 08:05 [place] # (Auto) 1.2 K/mm3 (0.0-0.8) H 03/19/20 08:05 Eos # (Auto) 0.2 K/mm3 (0.0-0.4) 03/19/20 08:05 Baso # (Auto) 0.1 K/mm3 (0.0-0.1) 03/19/20 08:05 Add Manual Diff Complete 03/24/20 07:15 Total Counted 100 03/24/20 07:15 Seg Neutrophils % 83.5 % (40.0-70.0) H 03/19/20 08:05 Seg Neuts % (Manual) 88.0 % (40.0-70.0) H 03/24/20 07:15 Band Neutrophils % 0 % 03/24/20 07:15 Lymphocytes % (Manual) 7.0 % (13.4-35.0) L 03/24/20 07:15 Reactive Lymphs % (Man) 0 % 03/24/20 07:15 Monocytes % (Manual) 1.0 % (0.0-7.3) 03/24/20 07:15 Eosinophils % (Manual) 2.0 % (0.0-4.3) 03/24/20 07:15 Basophils % (Manual) 0 % (0.0-1.8) 03/24/20 07:15 Metamyelocytes % 1.0 % 03/24/20 07:15 Myelocytes % 1.0 % 03/24/20 07:15 Promyelocytes % 0 % 03/24/20 07:15 Blast Cells % 0 % 03/24/20 07:15 Nucleated RBC % Not Reportable 03/24/20 07:15 Seg Neutrophils # 14.1 K/mm3 (1.8-7.7) H 03/19/20 08:05 Seg Neutrophils # Man 15.8 K/mm3 (1.8-7.7) H 03/24/20 07:15 Band Neutrophils # 0.0 K/mm3 03/24/20 07:15 Lymphocytes # (Manual) 1.3 K/mm3 (1.2-5.4) 03/24/20 07:15 Abs React Lymphs (Man) 0.0 K/mm3 03/24/20 07:15 Monocytes # (Manual) 0.2 K/mm3 (0.0-0.8) 03/24/20 07:15 Eosinophils # (Manual) 0.4 K/mm3 (0.0-0.4) 03/24/20 07:15 Basophils # (Manual) 0.0 K/mm3 (0.0-0.1) 03/24/20 07:15 Metamyelocytes # 0.2 K/mm3 03/24/20 07:15 Myelocytes # 0.2 K/mm3 03/24/20 07:15 Promyelocytes # 0.0 K/mm3 03/24/20 07:15 Blast Cells # 0.0 K/mm3 03/24/20 07:15 WBC Morphology Not Reportable 03/24/20 07:15 Hypersegmented Neuts Not Reportable 03/24/20 07:15 Hyposegmented Neuts Not Reportable 03/24/20 07:15 Hypogranular Neuts Not Reportable 03/24/20 07:15 Smudge Cells Not Reportable 03/24/20 07:15 Toxic Granulation Not Reportable 03/24/20 07:15 Toxic Vacuolation Not Reportable 03/24/20 07:15 Dohle Bodies Not Reportable 03/24/20 07:15 Pelger-Huet Anomaly Not Reportable 03/24/20 07:15 Robert Rods Not Reportable 03/24/20 07:15 Platelet Estimate Consistent w auto 03/24/20 07:15 Clumped Platelets Not Reportable 03/24/20 07:15 Plt Clumps, EDTA Not Reportable 03/24/20 07:15 Large Platelets Not Reportable 03/24/20 07:15 Giant Platelets Not Reportable 03/24/20 07:15 Platelet Satelliting Not Reportable 03/24/20 07:15 Plt Morphology Comment Not Reportable 03/24/20 07:15 RBC Morphology Not Reportable 03/24/20 07:15 Dimorphic RBCs Not Reportable 03/24/20 07:15 Polychromasia Few 03/24/20 07:15 Hypochromasia Not Reportable 03/24/20 07:15 Poikilocytosis Not Reportable 03/24/20 07:15 Anisocytosis Few 03/24/20 07:15 Microcytosis Not Reportable 03/24/20 07:15 Macrocytosis Not Reportable 03/24/20 07:15 Spherocytes Not Reportable 03/24/20 07:15 Pappenheimer Bodies Not Reportable 03/24/20 07:15 Sickle Cells Not Reportable 03/24/20 07:15 Target Cells Not Reportable 03/24/20 07:15 Tear Drop Cells Not Reportable 03/24/20 07:15 Ovalocytes Not Reportable 03/24/20 07:15 Stomatocytes Few 03/17/20 04:40 Helmet Cells Not Reportable 03/24/20 07:15 [place] Bodies Not Reportable 03/24/20 07:15 [place] Rings Not Reportable 03/24/20 07:15 [place] Cells Not Reportable 03/24/20 07:15 Bite Cells Not Reportable 03/24/20 07:15 Crenated Cell Not Reportable 03/24/20 07:15 Elliptocytes Not Reportable 03/24/20 07:15 Acanthocytes (Spur) Not Reportable 03/24/20 07:15 Rouleaux Not Reportable 03/24/20 07:15 Hemoglobin C Crystals Not Reportable 03/24/20 07:15 Schistocytes Not Reportable 03/24/20 07:15 Malaria parasites Not Reportable 03/24/20 07:15 [place] Bodies Not Reportable 03/24/20 07:15 Hem Pathologist Commnt No 03/24/20 07:15 PT 15.6 Sec. (12.2-14.9) H 02/24/20 09:19 INR 1.21 (0.87-1.13) H 02/24/20 09:19 APTT 25.4 Sec. (24.2-36.6) 02/24/20 09:19 D-Dimer 1311.96 ng/mlDDU (0-234) H 02/24/20 09:19 ABG pH 7.371 (7.320-7.450) 03/08/20 12:34 POC ABG pCO2 63.1 mmHg (32.0-48.0) H 03/08/20 12:34 ABG pCO2 60.1 mm Hg 03/06/20 04:34 POC ABG pO2 90.5 mmHg (83-108) 03/08/20 12:34 ABG pO2 88.6 mm Hg (80.0-90.0) 03/06/20 04:34 POC ABG HCO3 35.7 03/08/20 12:34 ABG HCO3 37.9 mmol/L (20.0-26.0) H 03/06/20 04:34 ABG O2 Saturation 97.0 % (95.0-99.0) 03/06/20 04:34 ABG O2 Content 14.3 (0.0-44) 03/06/20 04:34 POC ABG Base Excess 8.7 03/08/20 12:34 ABG Base Excess 11.4 mmol/L (-2.0-3.0) H 03/06/20 04:34 ABG Hemoglobin 10.9 (12.0-17.5) L 03/08/20 12:34 ABG Oxyhemoglobin 95.9 (94-98) 03/08/20 12:34 ABG Carboxyhemoglobin 1.7 % (0.0-5.0) 03/06/20 04:34 ABG Methemoglobin 0.3 (0.0-1.5) 03/08/20 12:34 ABG Sodium 143.6 mmol/L (136.0-145.0) 03/08/20 12:34 ABG Potassium 3.8 mmol/L (3.40-4.50) 03/08/20 12:34 ABG Chloride 102.0 mmol/L (98-107) 03/08/20 12:34 ABG Glucose 176 mg/dL (65-95) H 03/08/20 12:34 Oxyhemoglobin 94.7 % (95.0-99.0) L 03/06/20 04:34 Carboxyhemoglobin 0.7 (0.5-1.5) 03/08/20 12:34 FiO2 30 03/08/20 12:34 Sodium 137 mmol/L (137-145) 03/24/20 07:15 Potassium 4.2 mmol/L (3.6-5.0) 03/24/20 07:15 Chloride 96.6 mmol/L (98-107) L 03/24/20 07:15 Carbon Dioxide 38 mmol/L (22-30) H 03/24/20 07:15 Anion Gap 7 mmol/L 03/24/20 07:15 BUN 14 mg/dL (9-20) 03/24/20 07:15 Creatinine < 0.2 mg/dL (0.8-1.3) L 03/24/20 07:15 Estimated GFR > 60 ml/min 03/24/20 07:15 BUN/Creatinine Ratio 70 % 03/24/20 07:15 Glucose 141 mg/dL (75-100) H 03/24/20 07:15 POC Glucose 112 mg/dL (70-105) H 03/24/20 05:33 Lactic Acid 1.00 mmol/L (0.7-2.0) 02/24/20 12:07 Calcium 8.9 mg/dL (8.4-10.2) 03/24/20 07:15 Phosphorus 3.30 mg/dL (2.5-4.5) 03/20/20 14:18 Magnesium 2.00 mg/dL (1.7-2.3) 03/20/20 14:18 Ferritin 1715.0 ng/mL (30.0-300.0) H 02/24/20 10:01 Total Bilirubin 0.60 mg/dL (0.1-1.2) 03/08/20 06:43 AST 34 units/L (5-40) 03/08/20 06:43 ALT 14 units/L (7-56) 03/08/20 06:43 Alkaline Phosphatase 56 units/L (35-129) 03/08/20 06:43 Lactate Dehydrogenase 303 units/L (91-180) H 02/24/20 09:19 Total Creatine Kinase 101 units/L (55-170) 02/24/20 19:35 CK-MB (CK-2) 3.5 ng/mL (0.0-4.0) 02/24/20 19:35 CK-MB (CK-2) Rel Index 3.4 (0-4) 02/24/20 19:35 Troponin T 0.105 ng/mL (0.00-0.029) H* D 03/23/20 07:57 C-Reactive Protein 4.70 mg/dL (0.00-1.30) H 02/28/20 11:05 NT-Pro-B Natriuret Pep 48.30 pg/mL (0-900) 02/24/20 09:19 Total Protein 5.9 g/dL (6.3-8.2) L 03/08/20 06:43 Albumin 3.2 g/dL (3.9-5) L 03/08/20 06:43 Albumin/Globulin Ratio 1.2 % 03/08/20 06:43 Prealbumin 0.090 g/L (0.200-0.400) L 02/28/20 12:54 Triglycerides 34 mg/dL (2-149) 03/22/20 18:00 Cholesterol 104 mg/dL (50-199) 03/22/20 18:00 LDL Cholesterol Direct 54 mg/dL (50-130) 03/22/20 18:00 HDL Cholesterol 40 mg/dL (40-59) 03/22/20 18:00 Cholesterol/HDL Ratio 2.60 % 03/22/20 18:00 Procalcitonin 0.16 ng/mL (<0.15) 03/09/20 08:35 Arterial Blood Glucose 176 mg/dL (65-95) H 03/08/20 12:34 Arterial Blood Ionized Calcium 4.5 mg/dL (4.6-5.3) L 03/08/20 12:34 Urine Color Yellow (Yellow) 03/08/20 08:57 Urine Turbidity Clear (Clear) 03/08/20 08:57 Urine pH 6.0 (5.0-7.0) 03/08/20 08:57 Ur Specific Geraldine 1.017 (1.003-1.030) 03/08/20 08:57 Urine Protein <15 mg/dl mg/dL (Negative) 03/08/20 08:57 Urine Glucose (UA) Neg mg/dL (Negative) 03/08/20 08:57 Urine Ketones Neg mg/dL (Negative) 03/08/20 08:57 Urine Blood Neg (Negative) 03/08/20 08:57 Urine Nitrite Neg (Negative) 03/08/20 08:57 Urine Bilirubin Neg (Negative) 03/08/20 08:57 Urine Urobilinogen < 2.0 mg/dL (<2.0) 03/08/20 08:57 Ur Leukocyte Esterase Neg (Negative) 03/08/20 08:57 Urine WBC (Auto) 10.0 /HPF (0.0-6.0) H 03/08/20 08:57 Urine RBC (Auto) 13.0 /HPF (0.0-6.0) 03/08/20 08:57 U Epithel Cells (Auto) < 1.0 /HPF (0-13.0) 03/08/20 08:57 Urine Bacteria (Auto) 2+ /HPF (Negative) 03/08/20 08:57 Urine Mucus Few /HPF 03/08/20 08:57 Urine Yeast (Budding) 3+ /HPF 03/08/20 08:57 Vancomycin Trough 8.0 ug/mL (5.0-20.0) 03/04/20 08:59 Coronavirus (PCR) Negative (Negative) 02/25/20 09:03 - Diagnostic Impressions Diagnostic Impressions: Echocardiogram 02/26/20 10:41 Transthoracic Echocardiogram Indication: Elevated Trop BP: 116/75 HR: 85 Conclusions *Global left ventricular wall motion and contractility are within normal limits. *The estimated ejection fraction is 50-55%. *Abnormal left ventricular diastolic filling is observed, consistent with impaired relaxation. *There is no pericardial effusion. Findings Left Ventricle: The left ventricular chamber size is normal. Global left ventricular wall motion and contractility are within normal limits. Global left ventricular systolic function is normal. The estimated ejection fraction is 50-55%. Abnormal left ventricular diastolic filling is observed, consistent with impaired relaxation. Left Atrium: The left atrial chamber size is normal. Right Ventricle: The right ventricular cavity size is normal. Right Atrium: The right atrial cavity size is normal. Aortic Valve: Mild aortic leaflet calcification is visualized. There is no evidence of aortic regurgitation. Mitral Valve: The mitral valve leaflets are mildly thickened. There is no evidence of mitral regurgitation. Tricuspid Valve: The tricuspid valve leaflets are normal. There is trace tricuspid regurgitation. The right ventricular systolic pressure is calculated at 29 mmHg. Pulmonic Valve: The pulmonic valve is not well visualized. Pericardium: There is no pericardial effusion. Aorta: The aorta appears normal. Venous: The inferior vena cava is dilated. There is less than 50% respiratory change in the inferior vena cava dimension. Measurements Chambers 2D Name Value Normal Range IVSd (2D) 0.97 cm (0.6 - 1.1) LVPWd (2D) 0.93 cm (0.6 - 1.1) LVIDd (2D) 4 cm (3.7 - 5.6) LVIDs (2D) 2.73 cm (2 - 3.8) LV FS (2D) 31.67 % - EF Teichholz (2D) 60.23 % - Ao root diameter (2D) 3.51 cm (2 - 3.7) Volumes/Mass Name Value Normal Range LA ESV SP 4CH (A/L) 8.43 ml - LA ESV SP 2CH (A/L) 18.89 ml - LA ESV BP (A/L) 13.02 ml - LA ESV BP (A/L) index 8.8 ml/m2 - LA ESV SP 4CH (MOD) 7.22 ml - LA ESV SP 2CH (MOD) 18.15 ml - LA ESV BP (MOD) 11.47 ml - LA ESV BP (MOD) index 7.75 ml/m2 - Diastolic/Systolic Function Name Value Normal Range MV E-wave Vmax 0.51 m/sec - MV deceleration time 180.22 msec - MV A-wave Vmax 0.62 m/sec - MV E:A ratio 0.82 ratio - Aortic Valve Name Value Normal Range AV Vmax 1.17 m/sec - AV VTI 19.71 cm - AV peak gradient 5.44 mmHg - AV mean gradient 3.38 mmHg - LVOT diameter 2.26 cm - LVOT Vmax 0.89 m/sec - LVOT VTI 13.72 cm - LVOT peak gradient 3.17 mmHg - LVOT mean gradient 1.67 mmHg - SV LVOT 55.03 ml - SHARAD (continuity Vmax) 3.06 cm2 - SHARAD (continuity VTI) 2.79 cm2 - Tricuspid Valve Name Value Normal Range TR Vmax 2.3 m/sec - TR peak gradient 21 mmHg - RAP 8 mmHg - RVSP 29 mmHg - IVC diameter 2.59 cm (1.2 - 2.3) Pulmonic Valve/Qp:Qs Name Value Normal Range PV acceleration time 68.51 msec - Drake/IV: Voiding Method Indwelling Catheter IV Catheter Type [Right Hand] Peripheral IV IV Catheter Type [Left Wrist] Peripheral IV IV Catheter Type [Right Peripheral IV Forearm] IV Catheter Type [Right Triple Lumen Cath Internal Jugular] IV Catheter Type [Left Forearm INT / Saline Lock ] IV Catheter Type [Right Triple Lumen Cath Femoral] IV Catheter Type [Right INT / Saline Lock Antecubital] Active Medications - Current Medications Current Medications: Generic Name Dose Route Start Last Admin Trade Name Freq PRN Reason Stop Dose Admin Acetaminophen 650 mg 02/24/20 15:13 03/08/20 00:10 Tylenol PO 650 mg Q4H PRN Administration Pain, Mild (1-3) Albuterol 2.5 mg 02/24/20 15:13 Proventil IH Q4HRT PRN Shortness Of Breath Lipase/Protease/Amylase 1 each 02/26/20 11:[address] 10,500 Unit FEEDTUBE PRN PRN For Clogged Feeding Tube Bisacodyl 10 mg 03/12/20 18:00 03/15/20 17:50 Dulcolax [place] 10 mg QDAY PRN Administration Bowel Movement Docusate Sodium 100 mg 03/12/20 22:00 03/24/20 09:00 Colace PO 100 mg BID ALISA Administration Enoxaparin Sodium 40 mg 03/20/20 22:00 03/23/20 22:58 Enoxaparin SUB-Q 40 mg QDAY@2200 ALISA Administration Protocol Glycopyrrolate 2 mg 03/08/20 20:00 03/24/20 08:59 Glycopyrrolate PO 2 mg TID ALISA Administration Lansoprazole 30 mg 02/28/20 10:00 03/24/20 09:00 Prevacid Solutab FEEDTUBE 30 mg QDAY AILSA Administration Metoprolol Tartrate 12.5 mg 02/24/20 22:00 03/24/20 09:00 Metoprolol PO 12.5 mg BID ALISA Administration Morphine Sulfate 2 mg 02/29/20 16:42 03/24/20 05:38 Morphine IV 2 mg Q4H PRN Administration Pain, Moderate (4-6) Polyethylene Glycol 17 gm 03/12/20 22:00 03/23/20 22:58 Miralax 3350 PO 17 gm QHS ALISA Administration Scopolamine 1 each 03/03/20 14:00 03/24/20 09:01 Transderm-Scop TD 1 each Q3D ALISA Administration Simple Syrup 15 ml 02/26/20 11:16 Simple Syrup FEEDTUBE PRN PRN Hypoglycemia Simple Syrup 30 ml 02/26/20 11:16 Simple Syrup FEEDTUBE PRN PRN Hypoglycemia Sodium Bicarbonate 325 mg 02/26/20 11:16 Sodium Bicarbonate FEEDTUBE PRN PRN For Clogged Feeding Tube Tamsulosin HCl 0.4 mg 03/09/20 18:00 03/24/20 09:00 Flomax PO 0.4 mg QDAY ALISA Administration Nutrition/Malnutrition Assess - Dietary Evaluation Nutrition/Malnutrition Findings: Nutrition Notes Start: 02/26/20 10:40 Freq: Status: Active Protocol: Document 03/21/20 13:36 LP (Rec: 03/21/20 13:41 LP [id number]) Nutrition Notes Initial or Follow up Reassessment Current Diagnosis Decubitus(Pressure Ulcer), Sepsis,Respiratory Failure Other Pertinent Diagnosis COVID-19 (-), ALS, pneumonia, Hip/buttock PU Current Diet Vital AF 1.2 at 75ml/hr (goal rate) Labs/Tests Na 136 Pertinent Medications Reviewed Height 6 ft Weight 66.4 kg [place] Body Weight (kg) 80.90 BMI 19.8 Weight Status Appropriate Subjective/Other Information Pt continues tolerating TF at goal rate. PEG placed. Percent of energy/protein needs met: 100%/100% Burn Absent Trauma Absent GI Symptoms None Skin Integrity/Comment Pressure Ulcer Stage 2 Current % PO Negligible Minimum of two criteria Yes Body Fat Depletion Mild depletion (non-severe) Muscle Mass Mild Depletion (non-severe) Reduced Order Planner Strength Measurably Reduced (severe) #3 Nutrition Diagnosis Malnutrition Diagnosis Progress(for reassessment Continues documentation) #2 Nutrition Diagnosis Inadequate oral intake Diagnosis Progress(for reassessment Continues documentation) #1 Nutrition Diagnosis Increased nutrient needs ( specify in comment below) Diagnosis Progress(for reassessment Continues documentation) Is patient on ventilator? Yes Is Patient Ambulatory and/or Out of Bed No REE-(Parke-St. Jeor-confined to bed) 1825.272 Kcal/Kg value to use for calculation 35 Approximate Energy Requirements Using 2324 kcal/Kg Calculation Used for Recommendations Kcal/kg Additional Notes Protein needs: 80-133 g (1.2-2 g/ kg ABW) Fluid: 1ml/kcal Nutrition Intervention Change Diet Order: Continue TF Nutrition Support: Vital AF 1.2 at 75ml/hr. Flush 200ml q4h For hyponatremia, flush 150 mL q4h Kcal 2,160 Protein (gm) 135 Fluid (mL) 1,460 Add Supplement/Snack (indicate name/kcal Will BID /protein ) Provides kCal: 190 Provides Protein (gm) 5 Goal #1 Meet at least 80% of energy and protein needs via TF Goal #2 Wound healing Anticipated Discharge Needs: Unable to determine at this time Follow-Up By: 03/28/20 Additional Comments Follow for stable TF
--- NOTE | 2020-03-24 12:37 | Progress Note ---
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 Respiratory Failure s/p trach Severe Sepsis with Shock Bilateral Pneumonia (Possible aspiration) History of ALS on Trilogy Oropharyngeal Dysphagia s/p PEG Acute toxic metabolic encephalopathy-resolved Elevated D-dimer Elevated troponin possibly type 2 ischemia Leukocytsois Discussed with RN, case management to arrange for attorney lawyer to maybe facetime to "speak" with him [facility] adn temperature curve Ambien for sleep at night Continue all supportive care - continue daytime PSV as tolerated He is not tolerating ATP trials and may end up vent dependant. Continue to attempt ATP trials as tolerated - ABG, CXR as clinically indicated - continue Robinul & scopolamine for secretion control - Keep K at 4, Mg at 2 and Phos at 2.5 to optimize respiratory muscle function - wound care per RN/WCN, off loading, frequent turning, mobility per facility protocol - wean supplemental oxygen for target O2 sats > 92% - VAP bundle addressed, aspiration precautions, HOB >40 - continue lung protective strategies - continue bronchodilators with pulmonary hygiene per RT - s/p empiric antiinfectives per ID recs (Rocephin and Zithromax) - enteral nutrition at goal rate as tolerated - accuchecks with glycemic control per SSI (While critically ill target blood glucose of 140-180 mg/dL; avoid hypoglycemia) - avoid nephrotoxins, renally dose all medications - avoid benzodiazepines, reduce the possibility of delirium - prn analgesia per CPOT score - Maintenance of sleep-wake cycle, avoid delirium - Continue stress ulcer and VTE prophylaxis (Famotidine and Enoxaparin) -Reardon in place for urinary retention and sacral decubitus ulcer - PT/OT/ROM exercises - Monitor hemodynamics closely - continue other care per attending / other consultants - discharge planning ongoing concurrently CONDITION: FAIR PROGNOSIS: GUARDED CODE STATUS: FULL CODE Subjective Date of service: 03/24/20 Principal diagnosis: Ac on Ch Hypercapnic & hypoxemic Resp Failure; Severe Sepsis; Jamar PNA; ALS Interval history: Patient is seen today for: Acute on Chronic Hypercapnic & hypoxemic Respiratory Failure; Severe Sepsis with Shock; Bilateral Pneumonia (Possible aspiration); History of ALS on Trilogy; Acute toxic metabolic encephalopathy Seen and examined at bedside; 24hour events reviewed; nursing and respiratory care staff consulted; no adverse overnight events reported to me; resting in bed; remains on MVS; s/p trach and PEG Tolerating tube feedings. Tolerating PSV at the bedside, continues to fail ATP trials No fevers, no diarrhea, no vomiting. Able to mouth words. States he wants to eat- tried some ice chips with him at the bedside He is also asking to see his attorney lawyer.States he is frustrated with his current situation. Not sleeping well at night Objective Vital Signs - 12hr 03/24/20 03/24/20 03/24/20 00:46 01:00 01:16 Temperature Pulse Rate 96 H 92 H 91 H Pulse Rate [ From Monitor] Respiratory 24 15 12 Rate Blood Pressure 105/71 112/73 112/73 O2 Sat by Pulse 99 99 98 Oximetry O2 Sat by Pulse Oximetry [ Assessment] 03/24/20 03/24/20 03/24/20 01:30 01:46 02:00 Temperature Pulse Rate 90 88 95 H Pulse Rate [ From Monitor] Respiratory 16 14 21 Rate Blood Pressure 108/68 108/68 114/73 O2 Sat by Pulse 98 99 98 Oximetry O2 Sat by Pulse Oximetry [ Assessment] 03/24/20 03/24/20 03/24/20 02:16 02:30 02:46 Temperature Pulse Rate 102 H 93 H 92 H Pulse Rate [ From Monitor] Respiratory 25 H 18 13 Rate Blood Pressure 114/73 110/74 110/74 O2 Sat by Pulse 99 99 98 Oximetry O2 Sat by Pulse Oximetry [ Assessment] 03/24/20 03/24/20 03/24/20 02:54 03:00 03:16 Temperature 98.9 F Pulse Rate 99 H 90 Pulse Rate [ From Monitor] Respiratory 23 12 Rate Blood Pressure 115/74 115/74 O2 Sat by Pulse 98 97 Oximetry O2 Sat by Pulse Oximetry [ Assessment] 03/24/20 03/24/20 03/24/20 03:30 03:46 04:00 Temperature Pulse Rate 105 H 88 85 Pulse Rate [ 90 From Monitor] Respiratory 22 12 21 Rate Blood Pressure 118/82 118/82 126/73 O2 Sat by Pulse 98 99 98 Oximetry O2 Sat by Pulse Oximetry [ Assessment] 03/24/20 03/24/20 03/24/20 04:16 04:24 04:30 Temperature Pulse Rate 94 H 81 89 Pulse Rate [ From Monitor] Respiratory 23 12 Rate Blood Pressure 126/73 126/73 114/72 O2 Sat by Pulse 98 98 98 Oximetry O2 Sat by Pulse Oximetry [ Assessment] 03/24/20 03/24/20 03/24/20 04:46 05:00 05:16 Temperature Pulse Rate 100 H 101 H 111 H Pulse Rate [ From Monitor] Respiratory 19 15 23 Rate Blood Pressure 114/72 114/72 125/83 O2 Sat by Pulse 99 98 78 L Oximetry O2 Sat by Pulse Oximetry [ Assessment] 03/24/20 03/24/20 03/24/20 05:30 05:46 06:00 Temperature Pulse Rate 92 H 96 H 104 H Pulse Rate [ From Monitor] Respiratory 13 18 19 Rate Blood Pressure 116/79 116/79 118/89 O2 Sat by Pulse 90 96 96 Oximetry O2 Sat by Pulse Oximetry [ Assessment] 03/24/20 03/24/20 03/24/20 06:16 06:30 06:46 Temperature Pulse Rate 87 93 H 88 Pulse Rate [ From Monitor] Respiratory 12 19 12 Rate Blood Pressure 116/79 126/87 126/87 O2 Sat by Pulse 94 96 98 Oximetry O2 Sat by Pulse Oximetry [ Assessment] 03/24/20 03/24/20 03/24/20 07:00 07:16 07:25 Temperature Pulse Rate 98 H 105 H Pulse Rate [ From Monitor] Respiratory 18 19 Rate Blood Pressure 131/88 131/88 O2 Sat by Pulse 98 98 Oximetry O2 Sat by Pulse 100 Oximetry [ Assessment] 03/24/20 03/24/20 03/24/20 07:30 07:34 07:36 Temperature Pulse Rate 115 H 104 H 102 H Pulse Rate [ From Monitor] Respiratory 13 22 Rate Blood Pressure 124/90 124/90 124/90 O2 Sat by Pulse 100 99 98 Oximetry O2 Sat by Pulse Oximetry [ Assessment] 03/24/20 03/24/20 03/24/20 07:46 08:00 08:16 Temperature 98.4 F Pulse Rate 103 H 105 H 106 H Pulse Rate [ 109 H From Monitor] Respiratory 22 26 H 24 Rate Blood Pressure 124/90 125/86 125/86 O2 Sat by Pulse 98 99 99 Oximetry O2 Sat by Pulse Oximetry [ Assessment] 03/24/20 03/24/20 03/24/20 08:30 08:46 09:00 Temperature Pulse Rate 107 H 109 H 117 H Pulse Rate [ From Monitor] Respiratory 20 20 28 H Rate Blood Pressure 132/84 132/84 124/85 O2 Sat by Pulse 99 99 98 Oximetry O2 Sat by Pulse Oximetry [ Assessment] 03/24/20 03/24/20 03/24/20 09:16 09:30 09:46 Temperature Pulse Rate 98 H 90 92 H Pulse Rate [ From Monitor] Respiratory 20 24 18 Rate Blood Pressure 124/85 120/89 120/89 O2 Sat by Pulse 97 99 96 Oximetry O2 Sat by Pulse Oximetry [ Assessment] 03/24/20 03/24/20 03/24/20 10:00 10:16 10:30 Temperature Pulse Rate 98 H 96 H 100 H Pulse Rate [ From Monitor] Respiratory 22 18 26 H Rate Blood Pressure 120/84 120/84 115/84 O2 Sat by Pulse 99 99 99 Oximetry O2 Sat by Pulse Oximetry [ Assessment] 03/24/20 03/24/20 03/24/20 10:46 11:00 11:16 Temperature Pulse Rate 100 H 106 H 99 H Pulse Rate [ From Monitor] Respiratory 26 H 27 H 19 Rate Blood Pressure 115/84 114/82 114/82 O2 Sat by Pulse 98 98 99 Oximetry O2 Sat by Pulse Oximetry [ Assessment] 03/24/20 03/24/20 03/24/20 11:27 11:30 11:46 Temperature Pulse Rate 106 H 105 H 109 H Pulse Rate [ From Monitor] Respiratory 22 23 30 H Rate Blood Pressure 114/82 110/81 110/81 O2 Sat by Pulse 98 97 99 Oximetry O2 Sat by Pulse Oximetry [ Assessment] 03/24/20 03/24/20 12:00 12:16 Temperature Pulse Rate 109 H 111 H Pulse Rate [ 109 H From Monitor] Respiratory 24 22 Rate Blood Pressure 118/79 118/79 O2 Sat by Pulse 99 99 Oximetry O2 Sat by Pulse Oximetry [ Assessment] Constitutional: no acute distress, other (thin middle aged male with normal respiratory effort at rest on MVS) Eyes: non-icteric ENT: oropharynx moist, other (S/P Tracheostomy) Neck: supple, no lymphadenopathy, no JVD Effort: mildly labored Ascultation: Bilateral: clear, diminished breath sounds, wheezes, rhonchi Percussion: Bilateral: not dull Cardiovascular: regular rate and rhythm, other (S1,S2, no murmurs) Gastrointestinal: normoactive bowel sounds, soft, non-tender, non-distended, other (+ distended but non tender suprapubis) Integumentary: normal, decubitus ulcer (sacral / gluteal) Extremities: no cyanosis, no edema, pulses normal, other (atrophic looking limbs) Neurologic: pupils equal and round, other (motor strength in extremities 1-2/5, awake, alert, mouths words to make needs known) Psychiatric: depressed CBC and BMP: 03/24/20 07:15 03/24/20 07:15 ABG, PT/INR, D-dimer: ABG ABG pH 7.371 (7.320-7.450) 03/08/20 12:34 POC ABG pCO2 63.1 mmHg (32.0-48.0) H 03/08/20 12:34 ABG pCO2 60.1 mm Hg 03/06/20 04:34 POC ABG pO2 90.5 mmHg (83-108) 03/08/20 12:34 ABG pO2 88.6 mm Hg (80.0-90.0) 03/06/20 04:34 POC ABG HCO3 35.7 03/08/20 12:34 ABG O2 Saturation 97.0 % (95.0-99.0) 03/06/20 04:34 PT/INR, D-dimer PT 15.6 Sec. (12.2-14.9) H 02/24/20 09:19 INR 1.21 (0.87-1.13) H 02/24/20 09:19 D-Dimer 1311.96 ng/mlDDU (0-234) H 02/24/20 09:19 Abnormal lab findings: Abnormal Labs 02/24/20 02/24/20 02/24/20 09:19 09:19 09:19 WBC 20.2 H RBC 5.05 H Hgb Hct MCV MCH RDW 15.3 H Plt Count Lymph % (Auto) [place] # (Auto) Seg Neutrophils % Seg Neuts % (Manual) 86.0 H Lymphocytes % (Manual) 1.0 L Monocytes % (Manual) Basophils % (Manual) Seg Neutrophils # Seg Neutrophils # Man 17.4 H Lymphocytes # (Manual) 0.2 L Monocytes # (Manual) Eosinophils # (Manual) Basophils # (Manual) PT 15.6 H INR 1.21 H D-Dimer 1311.96 H ABG pH POC ABG pCO2 POC ABG pO2 ABG pO2 ABG HCO3 ABG O2 Saturation ABG Base Excess ABG Hemoglobin ABG Oxyhemoglobin ABG Potassium ABG Glucose Oxyhemoglobin Carboxyhemoglobin Sodium 135 L Potassium 3.2 L Chloride 92.2 L Carbon Dioxide BUN 6 L Creatinine < 0.2 L Glucose 124 H POC Glucose Calcium Ferritin Total Bilirubin 2.30 H Alkaline Phosphatase 132 H Lactate Dehydrogenase Troponin T 0.080 H C-Reactive Protein Total Protein Albumin 3.6 L Prealbumin LDL Cholesterol Direct 41 L Arterial Blood Glucose Arterial Blood Ionized Calcium Urine WBC (Auto) 02/24/20 02/24/20 02/24/20 09:19 09:58 10:01 WBC RBC Hgb Hct MCV MCH RDW Plt Count Lymph % (Auto) [place] # (Auto) Seg Neutrophils % Seg Neuts % (Manual) Lymphocytes % (Manual) Monocytes % (Manual) Basophils % (Manual) Seg Neutrophils # Seg Neutrophils # Man Lymphocytes # (Manual) Monocytes # (Manual) Eosinophils # (Manual) Basophils # (Manual) PT INR D-Dimer ABG pH 7.176 L* POC ABG pCO2 POC ABG pO2 ABG pO2 91.2 H ABG HCO3 ABG O2 Saturation ABG Base Excess -4.6 L ABG Hemoglobin ABG Oxyhemoglobin ABG Potassium ABG Glucose Oxyhemoglobin 92.6 L Carboxyhemoglobin Sodium Potassium Chloride Carbon Dioxide BUN Creatinine Glucose POC Glucose Calcium Ferritin 1715.0 H Total Bilirubin Alkaline Phosphatase Lactate Dehydrogenase 303 H Troponin T C-Reactive Protein 26.10 H Total Protein Albumin Prealbumin LDL Cholesterol Direct Arterial Blood Glucose Arterial Blood Ionized Calcium Urine WBC (Auto) 02/24/20 02/24/20 02/24/20 11:52 13:45 19:35 WBC RBC Hgb Hct MCV MCH RDW Plt Count Lymph % (Auto) [place] # (Auto) Seg Neutrophils % Seg Neuts % (Manual) Lymphocytes % (Manual) Monocytes % (Manual) Basophils % (Manual) Seg Neutrophils # Seg Neutrophils # Man Lymphocytes # (Manual) Monocytes # (Manual) Eosinophils # (Manual) Basophils # (Manual) PT INR D-Dimer ABG pH 7.051 L* 7.300 L POC ABG pCO2 POC ABG pO2 ABG pO2 94.7 H 75.1 L ABG HCO3 18.0 L ABG O2 Saturation 93.5 L ABG Base Excess -6.8 L -7.8 L ABG Hemoglobin 13.2 L 11.9 L ABG Oxyhemoglobin ABG Potassium ABG Glucose Oxyhemoglobin 91.0 L 92.7 L Carboxyhemoglobin Sodium Potassium Chloride Carbon Dioxide BUN Creatinine Glucose POC Glucose Calcium Ferritin Total Bilirubin Alkaline Phosphatase Lactate Dehydrogenase Troponin T 0.034 H D C-Reactive Protein Total Protein Albumin Prealbumin LDL Cholesterol Direct Arterial Blood Glucose Arterial Blood Ionized Calcium Urine WBC (Auto) 02/25/20 02/25/20 02/25/20 04:00 04:00 12:26 WBC 22.9 H RBC Hgb Hct MCV 83 L MCH 27 L RDW Plt Count 468 H Lymph % (Auto) [place] # (Auto) Seg Neutrophils % Seg Neuts % (Manual) 89.0 H Lymphocytes % (Manual) 7.0 L Monocytes % (Manual) Basophils % (Manual) Seg Neutrophils # Seg Neutrophils # Man 20.4 H Lymphocytes # (Manual) Monocytes # (Manual) Eosinophils # (Manual) Basophils # (Manual) PT INR D-Dimer ABG pH POC ABG pCO2 POC ABG pO2 ABG pO2 ABG HCO3 ABG O2 Saturation ABG Base Excess ABG Hemoglobin ABG Oxyhemoglobin ABG Potassium 2.6 L ABG Glucose 142 H Oxyhemoglobin Carboxyhemoglobin Sodium Potassium 3.2 L Chloride Carbon Dioxide 18 L BUN Creatinine 0.2 L Glucose 114 H POC Glucose Calcium Ferritin Total Bilirubin Alkaline Phosphatase Lactate Dehydrogenase Troponin T C-Reactive Protein Total Protein Albumin 3.5 L Prealbumin LDL Cholesterol Direct Arterial Blood Glucose 142 H Arterial Blood Ionized Calcium Urine WBC (Auto) 02/26/20 02/26/20 02/26/20 15:58 17:00 23:43 WBC RBC Hgb Hct MCV MCH RDW Plt Count Lymph % (Auto) [place] # (Auto) Seg Neutrophils % Seg Neuts % (Manual) Lymphocytes % (Manual) Monocytes % (Manual) Basophils % (Manual) Seg Neutrophils # Seg Neutrophils # Man Lymphocytes # (Manual) Monocytes # (Manual) Eosinophils # (Manual) Basophils # (Manual) PT INR D-Dimer ABG pH 7.502 H POC ABG pCO2 POC ABG pO2 213.6 H ABG pO2 ABG HCO3 ABG O2 Saturation ABG Base Excess ABG Hemoglobin ABG Oxyhemoglobin 99.2 H ABG Potassium 2.9 L ABG Glucose 160 H Oxyhemoglobin Carboxyhemoglobin 0.4 L Sodium Potassium Chloride Carbon Dioxide BUN Creatinine Glucose POC Glucose 189 H 120 H Calcium Ferritin Total Bilirubin Alkaline Phosphatase Lactate Dehydrogenase Troponin T C-Reactive Protein Total Protein Albumin Prealbumin LDL Cholesterol Direct Arterial Blood Glucose 160 H Arterial Blood Ionized Calcium 4.5 L Urine WBC (Auto) 02/27/20 02/27/20 02/27/20 05:00 07:04 17:45 WBC RBC Hgb Hct MCV MCH RDW Plt Count Lymph % (Auto) [place] # (Auto) Seg Neutrophils % Seg Neuts % (Manual) Lymphocytes % (Manual) Monocytes % (Manual) Basophils % (Manual) Seg Neutrophils # Seg Neutrophils # Man Lymphocytes # (Manual) Monocytes # (Manual) Eosinophils # (Manual) Basophils # (Manual) PT INR D-Dimer ABG pH 7.524 H POC ABG pCO2 POC ABG pO2 ABG pO2 ABG HCO3 ABG O2 Saturation ABG Base Excess ABG Hemoglobin ABG Oxyhemoglobin ABG Potassium 3.0 L ABG Glucose 143 H Oxyhemoglobin Carboxyhemoglobin Sodium Potassium Chloride Carbon Dioxide BUN Creatinine Glucose POC Glucose 154 H 175 H Calcium Ferritin Total Bilirubin Alkaline Phosphatase Lactate Dehydrogenase Troponin T C-Reactive Protein Total Protein Albumin Prealbumin LDL Cholesterol Direct Arterial Blood Glucose 143 H Arterial Blood Ionized Calcium Urine WBC (Auto) 02/27/20 02/28/20 02/28/20 Unknown 00:21 04:15 WBC 18.7 H RBC Hgb Hct MCV MCH RDW Plt Count Lymph % (Auto) 8.7 L [place] # (Auto) 1.2 H Seg Neutrophils % 84.6 H Seg Neuts % (Manual) Lymphocytes % (Manual) Monocytes % (Manual) Basophils % (Manual) Seg Neutrophils # 15.9 H Seg Neutrophils # Man Lymphocytes # (Manual) Monocytes # (Manual) Eosinophils # (Manual) Basophils # (Manual) PT INR D-Dimer ABG pH POC ABG pCO2 POC ABG pO2 ABG pO2 ABG HCO3 ABG O2 Saturation ABG Base Excess ABG Hemoglobin ABG Oxyhemoglobin ABG Potassium ABG Glucose Oxyhemoglobin Carboxyhemoglobin Sodium Potassium 2.9 L* Chloride Carbon Dioxide 33 H D BUN Creatinine < 0.2 L Glucose 157 H POC Glucose 134 H Calcium Ferritin Total Bilirubin Alkaline Phosphatase Lactate Dehydrogenase Troponin T C-Reactive Protein Total Protein Albumin Prealbumin LDL Cholesterol Direct Arterial Blood Glucose Arterial Blood Ionized Calcium Urine WBC (Auto) 02/28/20 02/28/20 02/28/20 04:15 05:16 05:39 WBC RBC Hgb Hct MCV MCH RDW Plt Count Lymph % (Auto) [place] # (Auto) Seg Neutrophils % Seg Neuts % (Manual) Lymphocytes % (Manual) Monocytes % (Manual) Basophils % (Manual) Seg Neutrophils # Seg Neutrophils # Man Lymphocytes # (Manual) Monocytes # (Manual) Eosinophils # (Manual) Basophils # (Manual) PT INR D-Dimer ABG pH POC ABG pCO2 POC ABG pO2 ABG pO2 142.9 H ABG HCO3 34.1 H ABG O2 Saturation ABG Base Excess 8.3 H ABG Hemoglobin ABG Oxyhemoglobin ABG Potassium ABG Glucose Oxyhemoglobin Carboxyhemoglobin Sodium 151 H Potassium Chloride Carbon Dioxide 32 H BUN Creatinine 0.2 L Glucose 167 H POC Glucose 138 H Calcium Ferritin Total Bilirubin Alkaline Phosphatase Lactate Dehydrogenase Troponin T C-Reactive Protein Total Protein Albumin Prealbumin LDL Cholesterol Direct Arterial Blood Glucose Arterial Blood Ionized Calcium Urine WBC (Auto) 02/28/20 02/28/20 02/28/20 11:05 11:33 12:54 WBC RBC Hgb Hct MCV MCH RDW Plt Count Lymph % (Auto) [place] # (Auto) Seg Neutrophils % Seg Neuts % (Manual) Lymphocytes % (Manual) Monocytes % (Manual) Basophils % (Manual) Seg Neutrophils # Seg Neutrophils # Man Lymphocytes # (Manual) Monocytes # (Manual) Eosinophils # (Manual) Basophils # (Manual) PT INR D-Dimer ABG pH POC ABG pCO2 POC ABG pO2 ABG pO2 ABG HCO3 ABG O2 Saturation ABG Base Excess ABG Hemoglobin ABG Oxyhemoglobin ABG Potassium ABG Glucose Oxyhemoglobin Carboxyhemoglobin Sodium Potassium Chloride Carbon Dioxide BUN Creatinine Glucose POC Glucose 160 H Calcium Ferritin Total Bilirubin Alkaline Phosphatase Lactate Dehydrogenase Troponin T C-Reactive Protein 4.70 H Total Protein Albumin Prealbumin 0.090 L LDL Cholesterol Direct Arterial Blood Glucose Arterial Blood Ionized Calcium Urine WBC (Auto) 02/28/20 02/29/20 02/29/20 17:34 00:44 04:05 WBC 19.6 H RBC Hgb Hct MCV MCH 27 L RDW 15.4 H Plt Count Lymph % (Auto) [place] # (Auto) Seg Neutrophils % Seg Neuts % (Manual) 86.0 H Lymphocytes % (Manual) 7.0 L Monocytes % (Manual) Basophils % (Manual) Seg Neutrophils # Seg Neutrophils # Man 16.9 H Lymphocytes # (Manual) Monocytes # (Manual) 1.2 H Eosinophils # (Manual) Basophils # (Manual) PT INR D-Dimer ABG pH POC ABG pCO2 POC ABG pO2 ABG pO2 ABG HCO3 ABG O2 Saturation ABG Base Excess ABG Hemoglobin ABG Oxyhemoglobin ABG Potassium ABG Glucose Oxyhemoglobin Carboxyhemoglobin Sodium Potassium Chloride Carbon Dioxide BUN Creatinine Glucose POC Glucose 136 H 156 H Calcium Ferritin Total Bilirubin Alkaline Phosphatase Lactate Dehydrogenase Troponin T C-Reactive Protein Total Protein Albumin Prealbumin LDL Cholesterol Direct Arterial Blood Glucose Arterial Blood Ionized Calcium Urine WBC (Auto) 02/29/20 02/29/20 02/29/20 04:05 05:14 05:33 WBC RBC Hgb Hct MCV MCH RDW Plt Count Lymph % (Auto) [place] # (Auto) Seg Neutrophils % Seg Neuts % (Manual) Lymphocytes % (Manual) Monocytes % (Manual) Basophils % (Manual) Seg Neutrophils # Seg Neutrophils # Man Lymphocytes # (Manual) Monocytes # (Manual) Eosinophils # (Manual) Basophils # (Manual) PT INR D-Dimer ABG pH POC ABG pCO2 54.3 H POC ABG pO2 124.8 H ABG pO2 ABG HCO3 ABG O2 Saturation ABG Base Excess ABG Hemoglobin ABG Oxyhemoglobin ABG Potassium ABG Glucose 185 H Oxyhemoglobin Carboxyhemoglobin Sodium 148 H Potassium Chloride Carbon Dioxide 33 H BUN Creatinine < 0.2 L Glucose 173 H POC Glucose 152 H Calcium Ferritin Total Bilirubin Alkaline Phosphatase Lactate Dehydrogenase Troponin T C-Reactive Protein Total Protein Albumin Prealbumin LDL Cholesterol Direct Arterial Blood Glucose 185 H Arterial Blood Ionized Calcium Urine WBC (Auto) 03/01/20 03/01/20 03/01/20 00:00 03:45 04:33 WBC 23.1 H RBC Hgb Hct MCV MCH 27 L RDW 15.3 H Plt Count Lymph % (Auto) [place] # (Auto) Seg Neutrophils % Seg Neuts % (Manual) 92.0 H Lymphocytes % (Manual) 6.0 L Monocytes % (Manual) Basophils % (Manual) Seg Neutrophils # Seg Neutrophils # Man 21.3 H Lymphocytes # (Manual) Monocytes # (Manual) Eosinophils # (Manual) 0.5 H Basophils # (Manual) PT INR D-Dimer ABG pH 7.492 H POC ABG pCO2 POC ABG pO2 ABG pO2 157.1 H ABG HCO3 32.3 H ABG O2 Saturation ABG Base Excess 8.1 H ABG Hemoglobin 13.2 L ABG Oxyhemoglobin ABG Potassium ABG Glucose Oxyhemoglobin Carboxyhemoglobin Sodium Potassium Chloride Carbon Dioxide BUN Creatinine Glucose POC Glucose 109 H Calcium Ferritin Total Bilirubin Alkaline Phosphatase Lactate Dehydrogenase Troponin T C-Reactive Protein Total Protein Albumin Prealbumin LDL Cholesterol Direct Arterial Blood Glucose Arterial Blood Ionized Calcium Urine WBC (Auto) 03/01/20 03/01/20 03/01/20 04:33 05:29 12:32 WBC RBC Hgb Hct MCV MCH RDW Plt Count Lymph % (Auto) [place] # (Auto) Seg Neutrophils % Seg Neuts % (Manual) Lymphocytes % (Manual) Monocytes % (Manual) Basophils % (Manual) Seg Neutrophils # Seg Neutrophils # Man Lymphocytes # (Manual) Monocytes # (Manual) Eosinophils # (Manual) Basophils # (Manual) PT INR D-Dimer ABG pH POC ABG pCO2 POC ABG pO2 ABG pO2 ABG HCO3 ABG O2 Saturation ABG Base Excess ABG Hemoglobin ABG Oxyhemoglobin ABG Potassium ABG Glucose Oxyhemoglobin Carboxyhemoglobin Sodium 146 H Potassium Chloride Carbon Dioxide 32 H BUN Creatinine < 0.2 L Glucose 120 H POC Glucose 120 H 128 H Calcium Ferritin Total Bilirubin Alkaline Phosphatase Lactate Dehydrogenase Troponin T C-Reactive Protein Total Protein Albumin Prealbumin LDL Cholesterol Direct Arterial Blood Glucose Arterial Blood Ionized Calcium Urine WBC (Auto) 03/01/20 03/01/20 03/02/20 17:38 23:46 06:13 WBC RBC Hgb Hct MCV MCH RDW Plt Count Lymph % (Auto) [place] # (Auto) Seg Neutrophils % Seg Neuts % (Manual) Lymphocytes % (Manual) Monocytes % (Manual) Basophils % (Manual) Seg Neutrophils # Seg Neutrophils # Man Lymphocytes # (Manual) Monocytes # (Manual) Eosinophils # (Manual) Basophils # (Manual) PT INR D-Dimer ABG pH POC ABG pCO2 POC ABG pO2 ABG pO2 ABG HCO3 ABG O2 Saturation ABG Base Excess ABG Hemoglobin ABG Oxyhemoglobin ABG Potassium ABG Glucose Oxyhemoglobin Carboxyhemoglobin Sodium Potassium Chloride Carbon Dioxide BUN Creatinine Glucose POC Glucose 114 H 121 H 120 H Calcium Ferritin Total Bilirubin Alkaline Phosphatase Lactate Dehydrogenase Troponin T C-Reactive Protein Total Protein Albumin Prealbumin LDL Cholesterol Direct Arterial Blood Glucose Arterial Blood Ionized Calcium Urine WBC (Auto) 03/02/20 03/02/20 03/03/20 09:47 09:47 10:21 WBC 23.6 H RBC Hgb Hct MCV MCH RDW 15.3 H Plt Count 494 H Lymph % (Auto) [place] # (Auto) Seg Neutrophils % Seg Neuts % (Manual) 85.0 H Lymphocytes % (Manual) 6.0 L Monocytes % (Manual) Basophils % (Manual) Seg Neutrophils # Seg Neutrophils # Man 20.1 H Lymphocytes # (Manual) Monocytes # (Manual) 1.7 H Eosinophils # (Manual) Basophils # (Manual) PT INR D-Dimer ABG pH POC ABG pCO2 POC ABG pO2 ABG pO2 ABG HCO3 ABG O2 Saturation ABG Base Excess ABG Hemoglobin ABG Oxyhemoglobin ABG Potassium 3.3 L ABG Glucose 158 H Oxyhemoglobin Carboxyhemoglobin Sodium Potassium Chloride Carbon Dioxide BUN Creatinine < 0.2 L Glucose 177 H POC Glucose Calcium Ferritin Total Bilirubin Alkaline Phosphatase Lactate Dehydrogenase Troponin T C-Reactive Protein Total Protein Albumin Prealbumin LDL Cholesterol Direct Arterial Blood Glucose 158 H Arterial Blood Ionized Calcium Urine WBC (Auto) 03/03/20 03/04/20 03/04/20 21:30 00:00 12:23 WBC RBC Hgb Hct MCV MCH RDW Plt Count Lymph % (Auto) [place] # (Auto) Seg Neutrophils % Seg Neuts % (Manual) Lymphocytes % (Manual) Monocytes % (Manual) Basophils % (Manual) Seg Neutrophils # Seg Neutrophils # Man Lymphocytes # (Manual) Monocytes # (Manual) Eosinophils # (Manual) Basophils # (Manual) PT INR D-Dimer ABG pH 7.328 L POC ABG pCO2 POC ABG pO2 ABG pO2 68.4 L ABG HCO3 35.0 H ABG O2 Saturation 93.9 L ABG Base Excess 6.8 H ABG Hemoglobin 12.7 L ABG Oxyhemoglobin ABG Potassium ABG Glucose Oxyhemoglobin 91.9 L Carboxyhemoglobin Sodium Potassium Chloride Carbon Dioxide BUN Creatinine Glucose POC Glucose 187 H 163 H Calcium Ferritin Total Bilirubin Alkaline Phosphatase Lactate Dehydrogenase Troponin T C-Reactive Protein Total Protein Albumin Prealbumin LDL Cholesterol Direct Arterial Blood Glucose Arterial Blood Ionized Calcium Urine WBC (Auto) 03/04/20 03/04/20 03/05/20 18:15 21:30 06:02 WBC RBC Hgb Hct MCV MCH RDW Plt Count Lymph % (Auto) [place] # (Auto) Seg Neutrophils % Seg Neuts % (Manual) Lymphocytes % (Manual) Monocytes % (Manual) Basophils % (Manual) Seg Neutrophils # Seg Neutrophils # Man Lymphocytes # (Manual) Monocytes # (Manual) Eosinophils # (Manual) Basophils # (Manual) PT INR D-Dimer ABG pH 7.297 L POC ABG pCO2 POC ABG pO2 ABG pO2 ABG HCO3 41.0 H ABG O2 Saturation ABG Base Excess 11.0 H ABG Hemoglobin 13.1 L ABG Oxyhemoglobin ABG Potassium ABG Glucose Oxyhemoglobin 94.5 L Carboxyhemoglobin Sodium Potassium Chloride Carbon Dioxide BUN Creatinine Glucose POC Glucose 192 H 127 H Calcium Ferritin Total Bilirubin Alkaline Phosphatase Lactate Dehydrogenase Troponin T C-Reactive Protein Total Protein Albumin Prealbumin LDL Cholesterol Direct Arterial Blood Glucose Arterial Blood Ionized Calcium Urine WBC (Auto) 03/05/20 03/05/20 03/06/20 12:09 16:42 00:24 WBC RBC Hgb Hct MCV MCH RDW Plt Count Lymph % (Auto) [place] # (Auto) Seg Neutrophils % Seg Neuts % (Manual) Lymphocytes % (Manual) Monocytes % (Manual) Basophils % (Manual) Seg Neutrophils # Seg Neutrophils # Man Lymphocytes # (Manual) Monocytes # (Manual) Eosinophils # (Manual) Basophils # (Manual) PT INR D-Dimer ABG pH POC ABG pCO2 POC ABG pO2 ABG pO2 ABG HCO3 ABG O2 Saturation ABG Base Excess ABG Hemoglobin ABG Oxyhemoglobin ABG Potassium ABG Glucose Oxyhemoglobin Carboxyhemoglobin Sodium Potassium Chloride Carbon Dioxide BUN Creatinine Glucose POC Glucose 147 H 114 H 134 H Calcium Ferritin Total Bilirubin Alkaline Phosphatase Lactate Dehydrogenase Troponin T C-Reactive Protein Total Protein Albumin Prealbumin LDL Cholesterol Direct Arterial Blood Glucose Arterial Blood Ionized Calcium Urine WBC (Auto) 03/06/20 03/06/20 03/06/20 04:34 05:53 06:08 WBC 25.4 H RBC Hgb 10.5 L Hct 32.7 L MCV MCH 27 L RDW 15.3 H Plt Count 634 H Lymph % (Auto) [place] # (Auto) Seg Neutrophils % Seg Neuts % (Manual) 88.0 H Lymphocytes % (Manual) 2.0 L Monocytes % (Manual) 8.0 H Basophils % (Manual) Seg Neutrophils # Seg Neutrophils # Man 22.4 H Lymphocytes # (Manual) 0.5 L Monocytes # (Manual) 2.0 H Eosinophils # (Manual) Basophils # (Manual) PT INR D-Dimer ABG pH POC ABG pCO2 POC ABG pO2 ABG pO2 ABG HCO3 37.9 H ABG O2 Saturation ABG Base Excess 11.4 H ABG Hemoglobin 10.6 L ABG Oxyhemoglobin ABG Potassium ABG Glucose Oxyhemoglobin 94.7 L Carboxyhemoglobin Sodium Potassium Chloride Carbon Dioxide BUN Creatinine Glucose POC Glucose 135 H Calcium Ferritin Total Bilirubin Alkaline Phosphatase Lactate Dehydrogenase Troponin T C-Reactive Protein Total Protein Albumin Prealbumin LDL Cholesterol Direct Arterial Blood Glucose Arterial Blood Ionized Calcium Urine WBC (Auto) 03/06/20 03/06/20 03/06/20 06:08 12:19 19:10 WBC RBC Hgb Hct MCV MCH RDW Plt Count Lymph % (Auto) [place] # (Auto) Seg Neutrophils % Seg Neuts % (Manual) Lymphocytes % (Manual) Monocytes % (Manual) Basophils % (Manual) Seg Neutrophils # Seg Neutrophils # Man Lymphocytes # (Manual) Monocytes # (Manual) Eosinophils # (Manual) Basophils # (Manual) PT INR D-Dimer ABG pH POC ABG pCO2 POC ABG pO2 ABG pO2 ABG HCO3 ABG O2 Saturation ABG Base Excess ABG Hemoglobin ABG Oxyhemoglobin ABG Potassium ABG Glucose Oxyhemoglobin Carboxyhemoglobin Sodium 150 H D Potassium Chloride Carbon Dioxide 39 H D BUN 23 H Creatinine < 0.2 L Glucose 144 H POC Glucose 169 H 152 H Calcium Ferritin Total Bilirubin Alkaline Phosphatase Lactate Dehydrogenase Troponin T C-Reactive Protein Total Protein Albumin 3.3 L Prealbumin LDL Cholesterol Direct Arterial Blood Glucose Arterial Blood Ionized Calcium Urine WBC (Auto) 03/06/20 03/07/20 03/07/20 23:58 04:25 04:25 WBC 22.1 H RBC Hgb 10.9 L Hct 32.9 L MCV MCH RDW 15.5 H Plt Count 739 H Lymph % (Auto) 7.8 L [place] # (Auto) 1.3 H Seg Neutrophils % 85.5 H Seg Neuts % (Manual) Lymphocytes % (Manual) Monocytes % (Manual) Basophils % (Manual) Seg Neutrophils # 18.9 H Seg Neutrophils # Man Lymphocytes # (Manual) Monocytes # (Manual) Eosinophils # (Manual) Basophils # (Manual) PT INR D-Dimer ABG pH POC ABG pCO2 POC ABG pO2 ABG pO2 ABG HCO3 ABG O2 Saturation ABG Base Excess ABG Hemoglobin ABG Oxyhemoglobin ABG Potassium ABG Glucose Oxyhemoglobin Carboxyhemoglobin Sodium 146 H Potassium Chloride Carbon Dioxide 37 H BUN Creatinine < 0.2 L Glucose 118 H POC Glucose 111 H Calcium Ferritin Total Bilirubin Alkaline Phosphatase Lactate Dehydrogenase Troponin T C-Reactive Protein Total Protein Albumin 3.7 L Prealbumin LDL Cholesterol Direct Arterial Blood Glucose Arterial Blood Ionized Calcium Urine WBC (Auto) 03/07/20 03/07/20 03/07/20 05:20 17:45 23:32 WBC RBC Hgb Hct MCV MCH RDW Plt Count Lymph % (Auto) [place] # (Auto) Seg Neutrophils % Seg Neuts % (Manual) Lymphocytes % (Manual) Monocytes % (Manual) Basophils % (Manual) Seg Neutrophils # Seg Neutrophils # Man Lymphocytes # (Manual) Monocytes # (Manual) Eosinophils # (Manual) Basophils # (Manual) PT INR D-Dimer ABG pH POC ABG pCO2 POC ABG pO2 ABG pO2 ABG HCO3 ABG O2 Saturation ABG Base Excess ABG Hemoglobin ABG Oxyhemoglobin ABG Potassium ABG Glucose Oxyhemoglobin Carboxyhemoglobin Sodium Potassium Chloride Carbon Dioxide BUN Creatinine Glucose POC Glucose 113 H 124 H 210 H Calcium Ferritin Total Bilirubin Alkaline Phosphatase Lactate Dehydrogenase Troponin T C-Reactive Protein Total Protein Albumin Prealbumin LDL Cholesterol Direct Arterial Blood Glucose Arterial Blood Ionized Calcium Urine WBC (Auto) 03/08/20 03/08/20 03/08/20 05:35 06:43 06:43 WBC 28.9 H RBC 3.53 L Hgb 9.7 L Hct 30.3 L MCV MCH RDW 15.6 H Plt Count 578 H Lymph % (Auto) [place] # (Auto) Seg Neutrophils % Seg Neuts % (Manual) 93.0 H Lymphocytes % (Manual) 4.0 L Monocytes % (Manual) Basophils % (Manual) Seg Neutrophils # Seg Neutrophils # Man 26.9 H Lymphocytes # (Manual) Monocytes # (Manual) Eosinophils # (Manual) Basophils # (Manual) PT INR D-Dimer ABG pH POC ABG pCO2 POC ABG pO2 ABG pO2 ABG HCO3 ABG O2 Saturation ABG Base Excess ABG Hemoglobin ABG Oxyhemoglobin ABG Potassium ABG Glucose Oxyhemoglobin Carboxyhemoglobin Sodium 146 H Potassium Chloride Carbon Dioxide 35 H BUN 34 H Creatinine 0.3 L D Glucose 125 H POC Glucose 147 H Calcium Ferritin Total Bilirubin Alkaline Phosphatase Lactate Dehydrogenase Troponin T C-Reactive Protein Total Protein 5.9 L Albumin 3.2 L Prealbumin LDL Cholesterol Direct Arterial Blood Glucose Arterial Blood Ionized Calcium Urine WBC (Auto) 03/08/20 03/08/20 03/08/20 08:57 11:14 12:34 WBC RBC Hgb Hct MCV MCH RDW Plt Count Lymph % (Auto) [place] # (Auto) Seg Neutrophils % Seg Neuts % (Manual) Lymphocytes % (Manual) Monocytes % (Manual) Basophils % (Manual) Seg Neutrophils # Seg Neutrophils # Man Lymphocytes # (Manual) Monocytes # (Manual) Eosinophils # (Manual) Basophils # (Manual) PT INR D-Dimer ABG pH POC ABG pCO2 63.1 H POC ABG pO2 ABG pO2 ABG HCO3 ABG O2 Saturation ABG Base Excess ABG Hemoglobin 10.9 L ABG Oxyhemoglobin ABG Potassium ABG Glucose 176 H Oxyhemoglobin Carboxyhemoglobin Sodium Potassium Chloride Carbon Dioxide BUN Creatinine Glucose POC Glucose 171 H Calcium Ferritin Total Bilirubin Alkaline Phosphatase Lactate Dehydrogenase Troponin T C-Reactive Protein Total Protein Albumin Prealbumin LDL Cholesterol Direct Arterial Blood Glucose 176 H Arterial Blood Ionized Calcium 4.5 L Urine WBC (Auto) 10.0 H 03/08/20 03/08/20 03/09/20 18:02 23:43 05:49 WBC RBC Hgb Hct MCV MCH RDW Plt Count Lymph % (Auto) [place] # (Auto) Seg Neutrophils % Seg Neuts % (Manual) Lymphocytes % (Manual) Monocytes % (Manual) Basophils % (Manual) Seg Neutrophils # Seg Neutrophils # Man Lymphocytes # (Manual) Monocytes # (Manual) Eosinophils # (Manual) Basophils # (Manual) PT INR D-Dimer ABG pH POC ABG pCO2 POC ABG pO2 ABG pO2 ABG HCO3 ABG O2 Saturation ABG Base Excess ABG Hemoglobin ABG Oxyhemoglobin ABG Potassium ABG Glucose Oxyhemoglobin Carboxyhemoglobin Sodium Potassium Chloride Carbon Dioxide BUN Creatinine Glucose POC Glucose 157 H 134 H 163 H Calcium Ferritin Total Bilirubin Alkaline Phosphatase Lactate Dehydrogenase Troponin T C-Reactive Protein Total Protein Albumin Prealbumin LDL Cholesterol Direct Arterial Blood Glucose Arterial Blood Ionized Calcium Urine WBC (Auto) 03/09/20 03/09/20 03/09/20 08:35 08:35 12:11 WBC 23.4 H RBC 3.36 L Hgb 9.3 L Hct 28.8 L MCV MCH RDW 15.9 H Plt Count 521 H Lymph % (Auto) [place] # (Auto) Seg Neutrophils % Seg Neuts % (Manual) 87.0 H Lymphocytes % (Manual) 4.0 L Monocytes % (Manual) 9.0 H Basophils % (Manual) Seg Neutrophils # Seg Neutrophils # Man 20.4 H Lymphocytes # (Manual) 0.9 L Monocytes # (Manual) 2.1 H Eosinophils # (Manual) Basophils # (Manual) PT INR D-Dimer ABG pH POC ABG pCO2 POC ABG pO2 ABG pO2 ABG HCO3 ABG O2 Saturation ABG Base Excess ABG Hemoglobin ABG Oxyhemoglobin ABG Potassium ABG Glucose Oxyhemoglobin Carboxyhemoglobin Sodium 147 H Potassium Chloride Carbon Dioxide 37 H BUN 63 H Creatinine Glucose 154 H POC Glucose 128 H Calcium Ferritin Total Bilirubin Alkaline Phosphatase Lactate Dehydrogenase Troponin T C-Reactive Protein Total Protein Albumin Prealbumin LDL Cholesterol Direct Arterial Blood Glucose Arterial Blood Ionized Calcium Urine WBC (Auto) 03/09/20 03/10/20 03/10/20 17:51 00:25 05:41 WBC RBC Hgb Hct MCV MCH RDW Plt Count Lymph % (Auto) [place] # (Auto) Seg Neutrophils % Seg Neuts % (Manual) Lymphocytes % (Manual) Monocytes % (Manual) Basophils % (Manual) Seg Neutrophils # Seg Neutrophils # Man Lymphocytes # (Manual) Monocytes # (Manual) Eosinophils # (Manual) Basophils # (Manual) PT INR D-Dimer ABG pH POC ABG pCO2 POC ABG pO2 ABG pO2 ABG HCO3 ABG O2 Saturation ABG Base Excess ABG Hemoglobin ABG Oxyhemoglobin ABG Potassium ABG Glucose Oxyhemoglobin Carboxyhemoglobin Sodium Potassium Chloride Carbon Dioxide BUN Creatinine Glucose POC Glucose 127 H 128 H 153 H Calcium Ferritin Total Bilirubin Alkaline Phosphatase Lactate Dehydrogenase Troponin T C-Reactive Protein Total Protein Albumin Prealbumin LDL Cholesterol Direct Arterial Blood Glucose Arterial Blood Ionized Calcium Urine WBC (Auto) 03/10/20 03/10/20 03/10/20 06:14 06:14 12:02 WBC 18.3 H RBC 3.45 L Hgb 9.5 L Hct 29.5 L MCV MCH RDW 16.1 H Plt Count 494 H Lymph % (Auto) [place] # (Auto) Seg Neutrophils % Seg Neuts % (Manual) 95.0 H Lymphocytes % (Manual) 1.0 L Monocytes % (Manual) Basophils % (Manual) Seg Neutrophils # Seg Neutrophils # Man 17.4 H Lymphocytes # (Manual) 0.2 L Monocytes # (Manual) Eosinophils # (Manual) Basophils # (Manual) PT INR D-Dimer ABG pH POC ABG pCO2 POC ABG pO2 ABG pO2 ABG HCO3 ABG O2 Saturation ABG Base Excess ABG Hemoglobin ABG Oxyhemoglobin ABG Potassium ABG Glucose Oxyhemoglobin Carboxyhemoglobin Sodium 149 H Potassium Chloride Carbon Dioxide 35 H BUN 34 H Creatinine 0.2 L D Glucose 177 H POC Glucose 151 H Calcium Ferritin Total Bilirubin Alkaline Phosphatase Lactate Dehydrogenase Troponin T C-Reactive Protein Total Protein Albumin Prealbumin LDL Cholesterol Direct Arterial Blood Glucose Arterial Blood Ionized Calcium Urine WBC (Auto) 03/10/20 03/10/20 03/11/20 17:41 23:53 05:02 WBC RBC Hgb Hct MCV MCH RDW Plt Count Lymph % (Auto) [place] # (Auto) Seg Neutrophils % Seg Neuts % (Manual) Lymphocytes % (Manual) Monocytes % (Manual) Basophils % (Manual) Seg Neutrophils # Seg Neutrophils # Man Lymphocytes # (Manual) Monocytes # (Manual) Eosinophils # (Manual) Basophils # (Manual) PT INR D-Dimer ABG pH POC ABG pCO2 POC ABG pO2 ABG pO2 ABG HCO3 ABG O2 Saturation ABG Base Excess ABG Hemoglobin ABG Oxyhemoglobin ABG Potassium ABG Glucose Oxyhemoglobin Carboxyhemoglobin Sodium Potassium Chloride Carbon Dioxide BUN Creatinine Glucose POC Glucose 168 H 142 H 146 H Calcium Ferritin Total Bilirubin Alkaline Phosphatase Lactate Dehydrogenase Troponin T C-Reactive Protein Total Protein Albumin Prealbumin LDL Cholesterol Direct Arterial Blood Glucose Arterial Blood Ionized Calcium Urine WBC (Auto) 03/11/20 03/11/20 03/11/20 11:30 14:01 14:01 WBC 19.7 H RBC 3.04 L Hgb 8.7 L Hct 25.8 L MCV MCH RDW 15.6 H Plt Count Lymph % (Auto) [place] # (Auto) Seg Neutrophils % Seg Neuts % (Manual) Lymphocytes % (Manual) Monocytes % (Manual) Basophils % (Manual) Seg Neutrophils # Seg Neutrophils # Man Lymphocytes # (Manual) Monocytes # (Manual) Eosinophils # (Manual) Basophils # (Manual) PT INR D-Dimer ABG pH POC ABG pCO2 POC ABG pO2 ABG pO2 ABG HCO3 ABG O2 Saturation ABG Base Excess ABG Hemoglobin ABG Oxyhemoglobin ABG Potassium ABG Glucose Oxyhemoglobin Carboxyhemoglobin Sodium 151 H Potassium Chloride Carbon Dioxide 37 H BUN Creatinine < 0.2 L Glucose 171 H POC Glucose 248 H Calcium Ferritin Total Bilirubin Alkaline Phosphatase Lactate Dehydrogenase Troponin T C-Reactive Protein Total Protein Albumin Prealbumin LDL Cholesterol Direct Arterial Blood Glucose Arterial Blood Ionized Calcium Urine WBC (Auto) 03/11/20 03/11/20 03/12/20 17:09 23:52 04:39 WBC 19.9 H RBC 3.16 L Hgb 8.9 L Hct 27.5 L MCV MCH RDW 15.7 H Plt Count Lymph % (Auto) 6.8 L [place] # (Auto) 1.2 H Seg Neutrophils % 86.0 H Seg Neuts % (Manual) Lymphocytes % (Manual) Monocytes % (Manual) Basophils % (Manual) Seg Neutrophils # 17.1 H Seg Neutrophils # Man Lymphocytes # (Manual) Monocytes # (Manual) Eosinophils # (Manual) Basophils # (Manual) PT INR D-Dimer ABG pH POC ABG pCO2 POC ABG pO2 ABG pO2 ABG HCO3 ABG O2 Saturation ABG Base Excess ABG Hemoglobin ABG Oxyhemoglobin ABG Potassium ABG Glucose Oxyhemoglobin Carboxyhemoglobin Sodium Potassium Chloride Carbon Dioxide BUN Creatinine Glucose POC Glucose 124 H 131 H Calcium Ferritin Total Bilirubin Alkaline Phosphatase Lactate Dehydrogenase Troponin T C-Reactive Protein Total Protein Albumin Prealbumin LDL Cholesterol Direct Arterial Blood Glucose Arterial Blood Ionized Calcium Urine WBC (Auto) 03/12/20 03/12/20 03/12/20 04:39 05:28 11:34 WBC RBC Hgb Hct MCV MCH RDW Plt Count Lymph % (Auto) [place] # (Auto) Seg Neutrophils % Seg Neuts % (Manual) Lymphocytes % (Manual) Monocytes % (Manual) Basophils % (Manual) Seg Neutrophils # Seg Neutrophils # Man Lymphocytes # (Manual) Monocytes # (Manual) Eosinophils # (Manual) Basophils # (Manual) PT INR D-Dimer ABG pH POC ABG pCO2 POC ABG pO2 ABG pO2 ABG HCO3 ABG O2 Saturation ABG Base Excess ABG Hemoglobin ABG Oxyhemoglobin ABG Potassium ABG Glucose Oxyhemoglobin Carboxyhemoglobin Sodium 147 H Potassium Chloride Carbon Dioxide 40 H BUN Creatinine < 0.2 L Glucose 175 H POC Glucose 167 H 144 H Calcium Ferritin Total Bilirubin Alkaline Phosphatase Lactate Dehydrogenase Troponin T C-Reactive Protein Total Protein Albumin Prealbumin LDL Cholesterol Direct Arterial Blood Glucose Arterial Blood Ionized Calcium Urine WBC (Auto) 03/12/20 03/12/20 03/13/20 17:32 23:57 05:57 WBC RBC Hgb Hct MCV MCH RDW Plt Count Lymph % (Auto) [place] # (Auto) Seg Neutrophils % Seg Neuts % (Manual) Lymphocytes % (Manual) Monocytes % (Manual) Basophils % (Manual) Seg Neutrophils # Seg Neutrophils # Man Lymphocytes # (Manual) Monocytes # (Manual) Eosinophils # (Manual) Basophils # (Manual) PT INR D-Dimer ABG pH POC ABG pCO2 POC ABG pO2 ABG pO2 ABG HCO3 ABG O2 Saturation ABG Base Excess ABG Hemoglobin ABG Oxyhemoglobin ABG Potassium ABG Glucose Oxyhemoglobin Carboxyhemoglobin Sodium Potassium Chloride Carbon Dioxide BUN Creatinine Glucose POC Glucose 141 H 137 H 161 H Calcium Ferritin Total Bilirubin Alkaline Phosphatase Lactate Dehydrogenase Troponin T C-Reactive Protein Total Protein Albumin Prealbumin LDL Cholesterol Direct Arterial Blood Glucose Arterial Blood Ionized Calcium Urine WBC (Auto) 03/13/20 03/13/20 03/13/20 12:28 14:14 18:39 WBC RBC Hgb Hct MCV MCH RDW Plt Count Lymph % (Auto) [place] # (Auto) Seg Neutrophils % Seg Neuts % (Manual) Lymphocytes % (Manual) Monocytes % (Manual) Basophils % (Manual) Seg Neutrophils # Seg Neutrophils # Man Lymphocytes # (Manual) Monocytes # (Manual) Eosinophils # (Manual) Basophils # (Manual) PT INR D-Dimer ABG pH POC ABG pCO2 POC ABG pO2 ABG pO2 ABG HCO3 ABG O2 Saturation ABG Base Excess ABG Hemoglobin ABG Oxyhemoglobin ABG Potassium ABG Glucose Oxyhemoglobin Carboxyhemoglobin Sodium Potassium Chloride Carbon Dioxide 39 H BUN Creatinine < 0.2 L Glucose 129 H POC Glucose 130 H 125 H Calcium Ferritin Total Bilirubin Alkaline Phosphatase Lactate Dehydrogenase Troponin T C-Reactive Protein Total Protein Albumin Prealbumin LDL Cholesterol Direct Arterial Blood Glucose Arterial Blood Ionized Calcium Urine WBC (Auto) 03/13/20 03/14/20 03/14/20 23:33 05:24 08:07 WBC 16.8 H RBC 2.81 L Hgb 7.9 L Hct 23.9 L MCV MCH RDW 15.9 H Plt Count Lymph % (Auto) [place] # (Auto) Seg Neutrophils % Seg Neuts % (Manual) 84.0 H Lymphocytes % (Manual) 10.0 L Monocytes % (Manual) Basophils % (Manual) Seg Neutrophils # Seg Neutrophils # Man 14.1 H Lymphocytes # (Manual) Monocytes # (Manual) Eosinophils # (Manual) Basophils # (Manual) PT INR D-Dimer ABG pH POC ABG pCO2 POC ABG pO2 ABG pO2 ABG HCO3 ABG O2 Saturation ABG Base Excess ABG Hemoglobin ABG Oxyhemoglobin ABG Potassium ABG Glucose Oxyhemoglobin Carboxyhemoglobin Sodium Potassium Chloride Carbon Dioxide BUN Creatinine Glucose POC Glucose 146 H 125 H Calcium Ferritin Total Bilirubin Alkaline Phosphatase Lactate Dehydrogenase Troponin T C-Reactive Protein Total Protein Albumin Prealbumin LDL Cholesterol Direct Arterial Blood Glucose Arterial Blood Ionized Calcium Urine WBC (Auto) 03/14/20 03/14/20 03/14/20 08:07 12:21 18:26 WBC RBC Hgb Hct MCV MCH RDW Plt Count Lymph % (Auto) [place] # (Auto) Seg Neutrophils % Seg Neuts % (Manual) Lymphocytes % (Manual) Monocytes % (Manual) Basophils % (Manual) Seg Neutrophils # Seg Neutrophils # Man Lymphocytes # (Manual) Monocytes # (Manual) Eosinophils # (Manual) Basophils # (Manual) PT INR D-Dimer ABG pH POC ABG pCO2 POC ABG pO2 ABG pO2 ABG HCO3 ABG O2 Saturation ABG Base Excess ABG Hemoglobin ABG Oxyhemoglobin ABG Potassium ABG Glucose Oxyhemoglobin Carboxyhemoglobin Sodium Potassium Chloride 97.0 L Carbon Dioxide 37 H BUN Creatinine < 0.2 L Glucose 129 H POC Glucose 109 H 142 H Calcium 8.3 L Ferritin Total Bilirubin Alkaline Phosphatase Lactate Dehydrogenase Troponin T C-Reactive Protein Total Protein Albumin Prealbumin LDL Cholesterol Direct Arterial Blood Glucose Arterial Blood Ionized Calcium Urine WBC (Auto) 03/14/20 03/15/20 03/15/20 23:57 05:46 08:06 WBC 19.7 H RBC 3.29 L Hgb 9.1 L Hct 28.0 L MCV MCH RDW 15.9 H Plt Count Lymph % (Auto) [place] # (Auto) Seg Neutrophils % Seg Neuts % (Manual) Lymphocytes % (Manual) Monocytes % (Manual) Basophils % (Manual) Seg Neutrophils # Seg Neutrophils # Man Lymphocytes # (Manual) Monocytes # (Manual) Eosinophils # (Manual) Basophils # (Manual) PT INR D-Dimer ABG pH POC ABG pCO2 POC ABG pO2 ABG pO2 ABG HCO3 ABG O2 Saturation ABG Base Excess ABG Hemoglobin ABG Oxyhemoglobin ABG Potassium ABG Glucose Oxyhemoglobin Carboxyhemoglobin Sodium Potassium Chloride Carbon Dioxide BUN Creatinine Glucose POC Glucose 157 H 118 H Calcium Ferritin Total Bilirubin Alkaline Phosphatase Lactate Dehydrogenase Troponin T C-Reactive Protein Total Protein Albumin Prealbumin LDL Cholesterol Direct Arterial Blood Glucose Arterial Blood Ionized Calcium Urine WBC (Auto) 03/15/20 03/15/20 03/15/20 08:06 12:44 18:09 WBC RBC Hgb Hct MCV MCH RDW Plt Count Lymph % (Auto) [place] # (Auto) Seg Neutrophils % Seg Neuts % (Manual) Lymphocytes % (Manual) Monocytes % (Manual) Basophils % (Manual) Seg Neutrophils # Seg Neutrophils # Man Lymphocytes # (Manual) Monocytes # (Manual) Eosinophils # (Manual) Basophils # (Manual) PT INR D-Dimer ABG pH POC ABG pCO2 POC ABG pO2 ABG pO2 ABG HCO3 ABG O2 Saturation ABG Base Excess ABG Hemoglobin ABG Oxyhemoglobin ABG Potassium ABG Glucose Oxyhemoglobin Carboxyhemoglobin Sodium 136 L Potassium Chloride 93.6 L Carbon Dioxide 37 H BUN Creatinine < 0.2 L Glucose 132 H POC Glucose 151 H 164 H Calcium Ferritin Total Bilirubin Alkaline Phosphatase Lactate Dehydrogenase Troponin T C-Reactive Protein Total Protein Albumin Prealbumin LDL Cholesterol Direct Arterial Blood Glucose Arterial Blood Ionized Calcium Urine WBC (Auto) 03/15/20 03/16/20 03/16/20 23:26 05:39 11:58 WBC RBC Hgb Hct MCV MCH RDW Plt Count Lymph % (Auto) [place] # (Auto) Seg Neutrophils % Seg Neuts % (Manual) Lymphocytes % (Manual) Monocytes % (Manual) Basophils % (Manual) Seg Neutrophils # Seg Neutrophils # Man Lymphocytes # (Manual) Monocytes # (Manual) Eosinophils # (Manual) Basophils # (Manual) PT INR D-Dimer ABG pH POC ABG pCO2 POC ABG pO2 ABG pO2 ABG HCO3 ABG O2 Saturation ABG Base Excess ABG Hemoglobin ABG Oxyhemoglobin ABG Potassium ABG Glucose Oxyhemoglobin Carboxyhemoglobin Sodium Potassium Chloride Carbon Dioxide BUN Creatinine Glucose POC Glucose 136 H 116 H 109 H Calcium Ferritin Total Bilirubin Alkaline Phosphatase Lactate Dehydrogenase Troponin T C-Reactive Protein Total Protein Albumin Prealbumin LDL Cholesterol Direct Arterial Blood Glucose Arterial Blood Ionized Calcium Urine WBC (Auto) 03/16/20 03/17/20 03/17/20 23:56 04:40 04:40 WBC 18.0 H RBC 3.33 L Hgb 9.5 L Hct 28.8 L MCV MCH RDW 16.4 H Plt Count 499 H Lymph % (Auto) [place] # (Auto) Seg Neutrophils % Seg Neuts % (Manual) 82.0 H Lymphocytes % (Manual) 8.0 L Monocytes % (Manual) Basophils % (Manual) Seg Neutrophils # Seg Neutrophils # Man 14.8 H Lymphocytes # (Manual) Monocytes # (Manual) 1.3 H Eosinophils # (Manual) Basophils # (Manual) 0.2 H PT INR D-Dimer ABG pH POC ABG pCO2 POC ABG pO2 ABG pO2 ABG HCO3 ABG O2 Saturation ABG Base Excess ABG Hemoglobin ABG Oxyhemoglobin ABG Potassium ABG Glucose Oxyhemoglobin Carboxyhemoglobin Sodium Potassium Chloride 97.7 L Carbon Dioxide 32 H BUN Creatinine < 0.2 L Glucose 114 H POC Glucose 131 H Calcium Ferritin Total Bilirubin Alkaline Phosphatase Lactate Dehydrogenase Troponin T C-Reactive Protein Total Protein Albumin Prealbumin LDL Cholesterol Direct Arterial Blood Glucose Arterial Blood Ionized Calcium Urine WBC (Auto) 03/18/20 03/18/20 03/18/20 00:21 05:21 11:55 WBC RBC Hgb Hct MCV MCH RDW Plt Count Lymph % (Auto) [place] # (Auto) Seg Neutrophils % Seg Neuts % (Manual) Lymphocytes % (Manual) Monocytes % (Manual) Basophils % (Manual) Seg Neutrophils # Seg Neutrophils # Man Lymphocytes # (Manual) Monocytes # (Manual) Eosinophils # (Manual) Basophils # (Manual) PT INR D-Dimer ABG pH POC ABG pCO2 POC ABG pO2 ABG pO2 ABG HCO3 ABG O2 Saturation ABG Base Excess ABG Hemoglobin ABG Oxyhemoglobin ABG Potassium ABG Glucose Oxyhemoglobin Carboxyhemoglobin Sodium Potassium Chloride Carbon Dioxide BUN Creatinine Glucose POC Glucose 124 H 138 H 119 H Calcium Ferritin Total Bilirubin Alkaline Phosphatase Lactate Dehydrogenase Troponin T C-Reactive Protein Total Protein Albumin Prealbumin LDL Cholesterol Direct Arterial Blood Glucose Arterial Blood Ionized Calcium Urine WBC (Auto) 03/18/20 03/18/20 03/19/20 17:03 23:58 05:24 WBC RBC Hgb Hct MCV MCH RDW Plt Count Lymph % (Auto) [place] # (Auto) Seg Neutrophils % Seg Neuts % (Manual) Lymphocytes % (Manual) Monocytes % (Manual) Basophils % (Manual) Seg Neutrophils # Seg Neutrophils # Man Lymphocytes # (Manual) Monocytes # (Manual) Eosinophils # (Manual) Basophils # (Manual) PT INR D-Dimer ABG pH POC ABG pCO2 POC ABG pO2 ABG pO2 ABG HCO3 ABG O2 Saturation ABG Base Excess ABG Hemoglobin ABG Oxyhemoglobin ABG Potassium ABG Glucose Oxyhemoglobin Carboxyhemoglobin Sodium Potassium Chloride Carbon Dioxide BUN Creatinine Glucose POC Glucose 128 H 128 H 115 H Calcium Ferritin Total Bilirubin Alkaline Phosphatase Lactate Dehydrogenase Troponin T C-Reactive Protein Total Protein Albumin Prealbumin LDL Cholesterol Direct Arterial Blood Glucose Arterial Blood Ionized Calcium Urine WBC (Auto) 03/19/20 03/19/20 03/19/20 08:05 08:05 11:56 WBC 16.8 H RBC 3.36 L Hgb 9.4 L Hct 28.8 L MCV MCH RDW 17.4 H Plt Count 567 H Lymph % (Auto) 7.8 L [place] # (Auto) 1.2 H Seg Neutrophils % 83.5 H Seg Neuts % (Manual) Lymphocytes % (Manual) Monocytes % (Manual) Basophils % (Manual) Seg Neutrophils # 14.1 H Seg Neutrophils # Man Lymphocytes # (Manual) Monocytes # (Manual) Eosinophils # (Manual) Basophils # (Manual) PT INR D-Dimer ABG pH POC ABG pCO2 POC ABG pO2 ABG pO2 ABG HCO3 ABG O2 Saturation ABG Base Excess ABG Hemoglobin ABG Oxyhemoglobin ABG Potassium ABG Glucose Oxyhemoglobin Carboxyhemoglobin Sodium Potassium Chloride Carbon Dioxide 36 H BUN Creatinine < 0.2 L Glucose 135 H POC Glucose 128 H Calcium Ferritin Total Bilirubin Alkaline Phosphatase Lactate Dehydrogenase Troponin T C-Reactive Protein Total Protein Albumin Prealbumin LDL Cholesterol Direct Arterial Blood Glucose Arterial Blood Ionized Calcium Urine WBC (Auto) 03/19/20 03/20/20 03/20/20 23:59 05:12 16:52 WBC RBC Hgb Hct MCV MCH RDW Plt Count Lymph % (Auto) [place] # (Auto) Seg Neutrophils % Seg Neuts % (Manual) Lymphocytes % (Manual) Monocytes % (Manual) Basophils % (Manual) Seg Neutrophils # Seg Neutrophils # Man Lymphocytes # (Manual) Monocytes # (Manual) Eosinophils # (Manual) Basophils # (Manual) PT INR D-Dimer ABG pH POC ABG pCO2 POC ABG pO2 ABG pO2 ABG HCO3 ABG O2 Saturation ABG Base Excess ABG Hemoglobin ABG Oxyhemoglobin ABG Potassium ABG Glucose Oxyhemoglobin Carboxyhemoglobin Sodium Potassium Chloride Carbon Dioxide BUN Creatinine Glucose POC Glucose 120 H 131 H 124 H Calcium Ferritin Total Bilirubin Alkaline Phosphatase Lactate Dehydrogenase Troponin T C-Reactive Protein Total Protein Albumin Prealbumin LDL Cholesterol Direct Arterial Blood Glucose Arterial Blood Ionized Calcium Urine WBC (Auto) 03/20/20 03/21/20 03/21/20 23:35 04:50 07:35 WBC 15.2 H RBC 3.39 L Hgb 9.4 L Hct 29.4 L MCV MCH RDW 17.6 H Plt Count 518 H Lymph % (Auto) [place] # (Auto) Seg Neutrophils % Seg Neuts % (Manual) 83.0 H Lymphocytes % (Manual) 10.0 L Monocytes % (Manual) Basophils % (Manual) 2.0 H Seg Neutrophils # Seg Neutrophils # Man 12.6 H Lymphocytes # (Manual) Monocytes # (Manual) Eosinophils # (Manual) Basophils # (Manual) 0.3 H PT INR D-Dimer ABG pH POC ABG pCO2 POC ABG pO2 ABG pO2 ABG HCO3 ABG O2 Saturation ABG Base Excess ABG Hemoglobin ABG Oxyhemoglobin ABG Potassium ABG Glucose Oxyhemoglobin Carboxyhemoglobin Sodium Potassium Chloride Carbon Dioxide BUN Creatinine Glucose POC Glucose 125 H 127 H Calcium Ferritin Total Bilirubin Alkaline Phosphatase Lactate Dehydrogenase Troponin T C-Reactive Protein Total Protein Albumin Prealbumin LDL Cholesterol Direct Arterial Blood Glucose Arterial Blood Ionized Calcium Urine WBC (Auto) 03/21/20 03/21/20 03/21/20 07:35 11:45 17:22 WBC RBC Hgb Hct MCV MCH RDW Plt Count Lymph % (Auto) [place] # (Auto) Seg Neutrophils % Seg Neuts % (Manual) Lymphocytes % (Manual) Monocytes % (Manual) Basophils % (Manual) Seg Neutrophils # Seg Neutrophils # Man Lymphocytes # (Manual) Monocytes # (Manual) Eosinophils # (Manual) Basophils # (Manual) PT INR D-Dimer ABG pH POC ABG pCO2 POC ABG pO2 ABG pO2 ABG HCO3 ABG O2 Saturation ABG Base Excess ABG Hemoglobin ABG Oxyhemoglobin ABG Potassium ABG Glucose Oxyhemoglobin Carboxyhemoglobin Sodium 136 L Potassium Chloride 97.7 L Carbon Dioxide 32 H BUN Creatinine < 0.2 L Glucose 103 H POC Glucose 126 H 120 H Calcium Ferritin Total Bilirubin Alkaline Phosphatase Lactate Dehydrogenase Troponin T C-Reactive Protein Total Protein Albumin Prealbumin LDL Cholesterol Direct Arterial Blood Glucose Arterial Blood Ionized Calcium Urine WBC (Auto) 03/22/20 03/22/20 03/22/20 05:09 06:34 06:34 WBC 17.5 H RBC 3.52 L Hgb 10.0 L Hct 30.7 L MCV MCH RDW 17.5 H Plt Count 499 H Lymph % (Auto) [place] # (Auto) Seg Neutrophils % Seg Neuts % (Manual) 80.0 H Lymphocytes % (Manual) 10.0 L Monocytes % (Manual) Basophils % (Manual) Seg Neutrophils # Seg Neutrophils # Man 14.0 H Lymphocytes # (Manual) Monocytes # (Manual) Eosinophils # (Manual) Basophils # (Manual) PT INR D-Dimer ABG pH POC ABG pCO2 POC ABG pO2 ABG pO2 ABG HCO3 ABG O2 Saturation ABG Base Excess ABG Hemoglobin ABG Oxyhemoglobin ABG Potassium ABG Glucose Oxyhemoglobin Carboxyhemoglobin Sodium Potassium Chloride 96.6 L Carbon Dioxide 38 H BUN Creatinine < 0.2 L Glucose 139 H POC Glucose 125 H Calcium Ferritin Total Bilirubin Alkaline Phosphatase Lactate Dehydrogenase Troponin T C-Reactive Protein Total Protein Albumin Prealbumin LDL Cholesterol Direct Arterial Blood Glucose Arterial Blood Ionized Calcium Urine WBC (Auto) 03/22/20 03/22/20 03/22/20 11:45 18:00 23:32 WBC RBC Hgb Hct MCV MCH RDW Plt Count Lymph % (Auto) [place] # (Auto) Seg Neutrophils % Seg Neuts % (Manual) Lymphocytes % (Manual) Monocytes % (Manual) Basophils % (Manual) Seg Neutrophils # Seg Neutrophils # Man Lymphocytes # (Manual) Monocytes # (Manual) Eosinophils # (Manual) Basophils # (Manual) PT INR D-Dimer ABG pH POC ABG pCO2 POC ABG pO2 ABG pO2 ABG HCO3 ABG O2 Saturation ABG Base Excess ABG Hemoglobin ABG Oxyhemoglobin ABG Potassium ABG Glucose Oxyhemoglobin Carboxyhemoglobin Sodium Potassium Chloride Carbon Dioxide BUN Creatinine Glucose POC Glucose 135 H 133 H Calcium Ferritin Total Bilirubin Alkaline Phosphatase Lactate Dehydrogenase Troponin T 0.113 H* C-Reactive Protein Total Protein Albumin Prealbumin LDL Cholesterol Direct Arterial Blood Glucose Arterial Blood Ionized Calcium Urine WBC (Auto) 03/23/20 03/23/20 03/23/20 01:47 06:21 07:57 WBC RBC Hgb Hct MCV MCH RDW Plt Count Lymph % (Auto) [place] # (Auto) Seg Neutrophils % Seg Neuts % (Manual) Lymphocytes % (Manual) Monocytes % (Manual) Basophils % (Manual) Seg Neutrophils # Seg Neutrophils # Man Lymphocytes # (Manual) Monocytes # (Manual) Eosinophils # (Manual) Basophils # (Manual) PT INR D-Dimer ABG pH POC ABG pCO2 POC ABG pO2 ABG pO2 ABG HCO3 ABG O2 Saturation ABG Base Excess ABG Hemoglobin ABG Oxyhemoglobin ABG Potassium ABG Glucose Oxyhemoglobin Carboxyhemoglobin Sodium Potassium Chloride Carbon Dioxide BUN Creatinine Glucose POC Glucose 130 H Calcium Ferritin Total Bilirubin Alkaline Phosphatase Lactate Dehydrogenase Troponin T 0.143 H* D 0.105 H* D C-Reactive Protein Total Protein Albumin Prealbumin LDL Cholesterol Direct Arterial Blood Glucose Arterial Blood Ionized Calcium Urine WBC (Auto) 03/23/20 03/24/20 03/24/20 12:02 05:33 07:15 WBC 18.0 H RBC Hgb 11.0 L Hct 34.0 L MCV MCH RDW 17.4 H Plt Count 520 H Lymph % (Auto) [place] # (Auto) Seg Neutrophils % Seg Neuts % (Manual) 88.0 H Lymphocytes % (Manual) 7.0 L Monocytes % (Manual) Basophils % (Manual) Seg Neutrophils # Seg Neutrophils # Man 15.8 H Lymphocytes # (Manual) Monocytes # (Manual) Eosinophils # (Manual) Basophils # (Manual) PT INR D-Dimer ABG pH POC ABG pCO2 POC ABG pO2 ABG pO2 ABG HCO3 ABG O2 Saturation ABG Base Excess ABG Hemoglobin ABG Oxyhemoglobin ABG Potassium ABG Glucose Oxyhemoglobin Carboxyhemoglobin Sodium Potassium Chloride Carbon Dioxide BUN Creatinine Glucose POC Glucose 137 H 112 H Calcium Ferritin Total Bilirubin Alkaline Phosphatase Lactate Dehydrogenase Troponin T C-Reactive Protein Total Protein Albumin Prealbumin LDL Cholesterol Direct Arterial Blood Glucose Arterial Blood Ionized Calcium Urine WBC (Auto) 03/24/20 03/24/20 07:15 11:22 WBC RBC Hgb Hct MCV MCH RDW Plt Count Lymph % (Auto) [place] # (Auto) Seg Neutrophils % Seg Neuts % (Manual) Lymphocytes % (Manual) Monocytes % (Manual) Basophils % (Manual) Seg Neutrophils # Seg Neutrophils # Man Lymphocytes # (Manual) Monocytes # (Manual) Eosinophils # (Manual) Basophils # (Manual) PT INR D-Dimer ABG pH POC ABG pCO2 POC ABG pO2 ABG pO2 ABG HCO3 ABG O2 Saturation ABG Base Excess ABG Hemoglobin ABG Oxyhemoglobin ABG Potassium ABG Glucose Oxyhemoglobin Carboxyhemoglobin Sodium Potassium Chloride 96.6 L Carbon Dioxide 38 H BUN Creatinine < 0.2 L Glucose 141 H POC Glucose 130 H Calcium Ferritin Total Bilirubin Alkaline Phosphatase Lactate Dehydrogenase Troponin T C-Reactive Protein Total Protein Albumin Prealbumin LDL Cholesterol Direct Arterial Blood Glucose Arterial Blood Ionized Calcium Urine WBC (Auto) Allied health notes reviewed: RT
[2020-03-24] MEDS: ZOLPIDEM 5 MG TAB PO PRN (20:27)
[2020-03-25] MEDS: MORPHINE 2 MG/1 ML INJ IV PRN ×2 (00:31→09:49)
[2020-03-25] MEDS: POLYETHYLENE GLYCOL 3350 17 GM POWDER PO SCH (00:34)
[2020-03-25] MEDS: METOPROLOL TARTRATE 25 MG TAB PO SCH ×2 (00:34→09:49)
[2020-03-25] MEDS: DOCUSATE SODIUM 100 MG/10 ML ORAL LIQD PO SCH ×2 (00:34→09:48)
[2020-03-25] MEDS: ENOXAPARIN 40 MG/0.4 ML INJ SUB-Q SCH (00:35)
[2020-03-25] MEDS: GLYCOPYRROLATE 2 MG TAB PO SCH ×2 (08:00→14:00)
--- NOTE | 2020-03-25 09:34 | Progress Note ---
Assessment and Plan Assessment and plan: --Acute hypoxic hypercapnic respiratory failure; Intubated on mechanical ventilation. Etiology secondary to sepsis, ALS, multifocal pneumonia (Covid negative). --ALS --Elevated D-dimers; CTA chest, lower extremity venous Doppler both are negative Lovenox DVT prophylaxis --Bilateral pneumonia; probably community-acquired Versus atypical, empiric antibiotics Rocephin and Zithromax Cultures, check pro calcitonin --Sepsis secondary to pneumonia Leukocytosis, tachycardia, pneumonia on chest x-ray --Elevated troponin; Serial cardiac enzymes, serial EKGs Echocardiogram, cardiology consult if needed --Hypokalemia; replaced with KCl Monitor levels --Hyponatremia; IV fluids Closely monitor electrolytes --DVT prophylaxis; Lovenox Admit to ICU for close observation 02/25/2020. CTA of the chest reveals no PE but does illustrate the bilateral pneumonia. Doppler ultrasound also negative for DVT. Blood cultures are pending. Await COVID-19 testing. Patient currently requiring BiPAP IPAP 24/E PAP 6 with FiO2 of 25%. Continue O2 and BiPAP as clinically indicated. ID and pulmonary consulted. 02/26/2020. Blood cultures are negative x48 hours and Covid testing negative as well. Continue antibiotics per ID recommendations for community-acquired bilateral pneumonia. Cardiology consultation for elevated troponin. Check echocardiogram. 02/27/2020. Events of yesterday noted with asystole following V. fib arrest. Patient currently on AC mode rate 20, tidal volume 400, FiO2 50% and a PEEP of 6. Follow-up echocardiogram for elevated troponin. Cardiology suspects NSTEMI Type 2 in the setting of acute resp failure. Chest CTA and BLE Dopplers neg. we will discontinue Decadron given the Covid PCR is negative. 02/28/2020. I spoke with the sister Felisa Eli who is the power of corporate associate attorney regarding advanced directives and she instructed me that she would like to continue with aggressive care at this time. I informed her of the guarded prognosis and high mortality/morbidity and she voiced understanding. Patient currently with AC mode ventilation rate 18, tidal volume 400, FiO2 40% and a PEEP of 6. Continue antibiotics for pneumonia. ID previously consulted. Also consult neurology with regards to ALS. 02/29/2020; patient is intubated and on CPAP patient is alert and oriented. Patient has ALS. Dr. Álvarez spoke with his sister and she wants aggressive care. Continue antibiotics for pneumonia. Neurology consulted for ALS. Prognosis poor 03/01/2020; patient is intubated and on CPAP, patient is alert and oriented. I spoke with his 2 sisters about the management plan. 03/02/2020; patient is intubated and on CPAP. Patient was alert and oriented. I spoke with Dr. mohr and he thinks patient may need mechanical ventilation, likely his disease progressed. Dr. Flowers did debridement this morning. 03/03/2020; patient is intubated and on CPAP, patient was on trilogy and BiPAP at home. Patient has ALS. on spontaneous breathing trial. Patient is alert and oriented but quadriplegic. Patient has severe bilateral pneumonia and is on cefepime and Vanco, ID is following. Patient has sacral decubitus ulcer and debridement was done by Dr. Flowers and there is no osteomyelitis. 03/05. Patient still on broad-spectrum antibiotics. Status post sacral de cubitus ulcer debridements-no osteomyelitis. Patient is on AC 25/400/30% PEEP 5. No blood gas results today. 03/06. Plan for tracheostomy by surgery. Still remains intubated. Labs reviewed-sodium 150. Started on free water 200 every 8hr. trend sodium. 03/07: s/p trach placement today, patient placed back on mechanical ventilation with trach. Plan to resume tube feeding with NG tube. Continue to monitor vitals, monitor BMP. 03/08: Patient noted to have distended abdomen with low urinary output. Obtain bladder scan rule out urine retention, UA and urine culture, continue to follow clinically. 03/09: Patient noted to have low blood pressure with SBP as low as 70s. Ordered for 500 mils normal saline bolus. CT abdomen showed bladder outlet obstruction, urology consulted. 03/10: placed on drake by urology o/n, improved urine outpt. cont to monitor BMP. resuded TF - cont free water with TF. wean off from vent as tolerated. 03/11: Vitals stable. cont TF, wean off from vent as tolerated. start on 1/2 NS for hypernatremia - follow BMP 03/12: wean off vent as tolerated, plan for speech eval, cont Tf for now, cont iv fluid 03/13: unable to wean off from vent, unable to do speech therapy eval. will need PEG tube, cont supportive care for now, cont NG tube feeding 03/14: consulted GI for PEg placemnet, cont supportive care. remains on vent at night 03/15: Discussed with GI, plan for PEG tube placement possibly tomorrow. Continue supportive care and wean off from vent as tolerated. Hold Lovenox dose tonight. 03/16: family didnot consent for PEG placement yesterday. I spoke with the daughter today and she is now agreeable for PEG tube. I explained the necessity of the procedure with RN to the patient also and he nodded started on tube feeding, for the procedure. will cont supportive care. planned for PEG tube placement tomorrow. 03/17: s/p PEG placement today, patient tolerated well, cont supportive care 03/18: Started on tube feeding with new PEG tube, continue to wean off vent as tolerated 03/19: cont to monitor with supportive care, wean off vent as tolerated 03/20: Continue to wean off vent as tolerated -but failing weaning trial. Still requiring vent support at night. Currently on PEG tube for tube feed. 03/21. Pt with PSV trials with FiO@ 30%, PEEP 6, PS 10. Currently on PEG tube for tube feed. 03/22/2020. Continue PSV trials per pulmonary. Continue bronchodilators. Patient tolerating tube feedings. Continue Robinul for secretion control. 03/23/2020. Continue PSV trials per pulmonary. Continue bronchodilators. Continue Scopolamine and Robinul for secretion control. Trach care/airway management. Mobility protocols for pressure ulcer prophylaxis. LTAC evaluation per case management 03/24/2020. Continue PSV trials with current settings pressure support 10, PEEP 6 and FiO2 30%. Continue bronchodilators/nebulizer. Continue Scopolamine and Robinul for secretion control. Trach care/airway management. Mobility protocols for pressure ulcer prophylaxis. LTAC evaluation per case management 03/25/2020. Pulmonary to proceed with T-piece trials today. Continue bronchodilators/nebulizer. Continue Scopolamine and Robinul for secretion control. Trach care/airway management. Mobility protocols for pressure ulcer prophylaxis. The high probability of a clinically significant, sudden or life threatening deterioration of the [cardiac and respiratory] system(s) required my full and direct attention, intervention and personal management. The aggregate critical care time was [31] minutes. This time is in addition to time spent performing reported procedures but includes the following: [x] Data Review and interpretation [x] Patient assessment and monitoring of vital signs [x] Documentation [x] Medication orders and management History Interval history: 59-year-old male patient with significant past medical history of ALS, presented to ED with worsening shortness of breath since the morning [employer]ING [employer]TAIN. Patient was on a trilogy machine for breathing 18/11. EMS arrived, patient had O2 sats in the 80s. EMS attempted to place patient on their CPAP machine, however patient did not tolerate. Patient was admitted to the ICU with diagnosis of acute hypoxic respiratory failure and placed on BiPAP. Patient initially tolerated but later deteriorated with respiratory status. Therefore, patient was intubated on 02/26/2020 at 1500. Patient now on mechanical ventilation in the ICU. Hospitalist Physical - Constitutional Vitals: Temp Pulse Resp BP Pulse Ox 98.5 F 106 H 14 109/80 99 03/25/20 08:00 03/25/20 08:30 03/25/20 08:30 03/25/20 08:30 03/25/20 08:40 General appearance: Present: mild distress, other (Intubated on mechanical ve ntilation) - EENT Eyes: Present: PERRL, EOM intact ENT: hearing intact, clear oral mucosa, dentition normal - Neck Neck: Present: supple, normal ROM - Respiratory Respiratory effort: normal Respiratory: bilateral: CTA - Cardiovascular Rhythm: regular Heart Sounds: Present: S1 & S2. Absent: gallop, rub - Extremities Extremities: no ischemia, No edema, Full ROM - Abdominal General gastrointestinal: soft, non-tender, non-distended, normal bowel sounds - Integumentary Integumentary: Present: clear, warm, dry - Neurologic Neurologic: CNII-XII intact, moves all extremities HEART Score - HEART Score Troponin: Troponin T 0.105 ng/mL (0.00-0.029) H* D 03/23/20 07:57 Results - Labs CBC & Chem 7: 03/24/20 07:15 03/24/20 07:15 Labs: Laboratory Last Values WBC 18.0 K/mm3 (4.5-11.0) H 03/24/20 07:15 RBC 3.98 M/mm3 (3.65-5.03) 03/24/20 07:15 Hgb 11.0 gm/dl (11.8-15.2) L 03/24/20 07:15 Hct 34.0 % (35.5-45.6) L 03/24/20 07:15 MCV 86 fl (84-94) 03/24/20 07:15 MCH 28 pg (28-32) 03/24/20 07:15 MCHC 32 % (32-34) 03/24/20 07:15 RDW 17.4 % (13.2-15.2) H 03/24/20 07:15 Plt Count 520 K/mm3 (140-440) H 03/24/20 07:15 Lymph % (Auto) 7.8 % (13.4-35.0) L 03/19/20 08:05 Wolfe % (Auto) 7.3 % (0.0-7.3) 03/19/20 08:05 Eos % (Auto) 1.0 % (0.0-4.3) 03/19/20 08:05 Baso % (Auto) 0.7 % (0.0-1.8) 03/12/20 04:39 Lymph # (Auto) 1.3 K/mm3 (1.2-5.4) 03/19/20 08:05 Wolfe # (Auto) 1.2 K/mm3 (0.0-0.8) H 03/19/20 08:05 Eos # (Auto) 0.2 K/mm3 (0.0-0.4) 03/19/20 08:05 Baso # (Auto) 0.1 K/mm3 (0.0-0.1) 03/19/20 08:05 Add Manual Diff Complete 03/24/20 07:15 Total Counted 100 03/24/20 07:15 Seg Neutrophils % 83.5 % (40.0-70.0) H 03/19/20 08:05 Seg Neuts % (Manual) 88.0 % (40.0-70.0) H 03/24/20 07:15 Band Neutrophils % 0 % 03/24/20 07:15 Lymphocytes % (Manual) 7.0 % (13.4-35.0) L 03/24/20 07:15 Reactive Lymphs % (Man) 0 % 03/24/20 07:15 Monocytes % (Manual) 1.0 % (0.0-7.3) 03/24/20 07:15 Eosinophils % (Manual) 2.0 % (0.0-4.3) 03/24/20 07:15 Basophils % (Manual) 0 % (0.0-1.8) 03/24/20 07:15 Metamyelocytes % 1.0 % 03/24/20 07:15 Myelocytes % 1.0 % 03/24/20 07:15 Promyelocytes % 0 % 03/24/20 07:15 Blast Cells % 0 % 03/24/20 07:15 Nucleated RBC % Not Reportable 03/24/20 07:15 Seg Neutrophils # 14.1 K/mm3 (1.8-7.7) H 03/19/20 08:05 Seg Neutrophils # Man 15.8 K/mm3 (1.8-7.7) H 03/24/20 07:15 Band Neutrophils # 0.0 K/mm3 03/24/20 07:15 Lymphocytes # (Manual) 1.3 K/mm3 (1.2-5.4) 03/24/20 07:15 Abs React Lymphs (Man) 0.0 K/mm3 03/24/20 07:15 Monocytes # (Manual) 0.2 K/mm3 (0.0-0.8) 03/24/20 07:15 Eosinophils # (Manual) 0.4 K/mm3 (0.0-0.4) 03/24/20 07:15 Basophils # (Manual) 0.0 K/mm3 (0.0-0.1) 03/24/20 07:15 Metamyelocytes # 0.2 K/mm3 03/24/20 07:15 Myelocytes # 0.2 K/mm3 03/24/20 07:15 Promyelocytes # 0.0 K/mm3 03/24/20 07:15 Blast Cells # 0.0 K/mm3 03/24/20 07:15 WBC Morphology Not Reportable 03/24/20 07:15 Hypersegmented Neuts Not Reportable 03/24/20 07:15 Hyposegmented Neuts Not Reportable 03/24/20 07:15 Hypogranular Neuts Not Reportable 03/24/20 07:15 Smudge Cells Not Reportable 03/24/20 07:15 Toxic Granulation Not Reportable 03/24/20 07:15 Toxic Vacuolation Not Reportable 03/24/20 07:15 Dohle Bodies Not Reportable 03/24/20 07:15 Pelger-Huet Anomaly Not Reportable 03/24/20 07:15 Robert Rods Not Reportable 03/24/20 07:15 Platelet Estimate Consistent w auto 03/24/20 07:15 Clumped Platelets Not Reportable 03/24/20 07:15 Plt Clumps, EDTA Not Reportable 03/24/20 07:15 Large Platelets Not Reportable 03/24/20 07:15 Giant Platelets Not Reportable 03/24/20 07:15 Platelet Satelliting Not Reportable 03/24/20 07:15 Plt Morphology Comment Not Reportable 03/24/20 07:15 RBC Morphology Not Reportable 03/24/20 07:15 Dimorphic RBCs Not Reportable 03/24/20 07:15 Polychromasia Few 03/24/20 07:15 Hypochromasia Not Reportable 03/24/20 07:15 Poikilocytosis Not Reportable 03/24/20 07:15 Anisocytosis Few 03/24/20 07:15 Microcytosis Not Reportable 03/24/20 07:15 Macrocytosis Not Reportable 03/24/20 07:15 Spherocytes Not Reportable 03/24/20 07:15 Pappenheimer Bodies Not Reportable 03/24/20 07:15 Sickle Cells Not Reportable 03/24/20 07:15 Target Cells Not Reportable 03/24/20 07:15 Tear Drop Cells Not Reportable 03/24/20 07:15 Ovalocytes Not Reportable 03/24/20 07:15 Stomatocytes Few 03/17/20 04:40 Helmet Cells Not Reportable 03/24/20 07:15 [place] Bodies Not Reportable 03/24/20 07:15 [place] Rings Not Reportable 03/24/20 07:15 Riaz Cells Not Reportable 03/24/20 07:15 Bite Cells Not Reportable 03/24/20 07:15 Crenated Cell Not Reportable 03/24/20 07:15 Elliptocytes Not Reportable 03/24/20 07:15 Acanthocytes (Spur) Not Reportable 03/24/20 07:15 Rouleaux Not Reportable 03/24/20 07:15 Hemoglobin C Crystals Not Reportable 03/24/20 07:15 Schistocytes Not Reportable 03/24/20 07:15 Malaria parasites Not Reportable 03/24/20 07:15 Colton Bodies Not Reportable 03/24/20 07:15 Hem Pathologist Commnt No 03/24/20 07:15 PT 15.6 Sec. (12.2-14.9) H 02/24/20 09:19 INR 1.21 (0.87-1.13) H 02/24/20 09:19 APTT 25.4 Sec. (24.2-36.6) 02/24/20 09:19 D-Dimer 1311.96 ng/mlDDU (0-234) H 02/24/20 09:19 ABG pH 7.371 (7.320-7.450) 03/08/20 12:34 POC ABG pCO2 63.1 mmHg (32.0-48.0) H 03/08/20 12:34 ABG pCO2 60.1 mm Hg 03/06/20 04:34 POC ABG pO2 90.5 mmHg (83-108) 03/08/20 12:34 ABG pO2 88.6 mm Hg (80.0-90.0) 03/06/20 04:34 POC ABG HCO3 35.7 03/08/20 12:34 ABG HCO3 37.9 mmol/L (20.0-26.0) H 03/06/20 04:34 ABG O2 Saturation 97.0 % (95.0-99.0) 03/06/20 04:34 ABG O2 Content 14.3 (0.0-44) 03/06/20 04:34 POC ABG Base Excess 8.7 03/08/20 12:34 ABG Base Excess 11.4 mmol/L (-2.0-3.0) H 03/06/20 04:34 ABG Hemoglobin 10.9 (12.0-17.5) L 03/08/20 12:34 ABG Oxyhemoglobin 95.9 (94-98) 03/08/20 12:34 ABG Carboxyhemoglobin 1.7 % (0.0-5.0) 03/06/20 04:34 ABG Methemoglobin 0.3 (0.0-1.5) 03/08/20 12:34 ABG Sodium 143.6 mmol/L (136.0-145.0) 03/08/20 12:34 ABG Potassium 3.8 mmol/L (3.40-4.50) 03/08/20 12:34 ABG Chloride 102.0 mmol/L (98-107) 03/08/20 12:34 ABG Glucose 176 mg/dL (65-95) H 03/08/20 12:34 Oxyhemoglobin 94.7 % (95.0-99.0) L 03/06/20 04:34 Carboxyhemoglobin 0.7 (0.5-1.5) 03/08/20 12:34 FiO2 30 03/08/20 12:34 Sodium 137 mmol/L (137-145) 03/24/20 07:15 Potassium 4.2 mmol/L (3.6-5.0) 03/24/20 07:15 Chloride 96.6 mmol/L (98-107) L 03/24/20 07:15 Carbon Dioxide 38 mmol/L (22-30) H 03/24/20 07:15 Anion Gap 7 mmol/L 03/24/20 07:15 BUN 14 mg/dL (9-20) 03/24/20 07:15 Creatinine < 0.2 mg/dL (0.8-1.3) L 03/24/20 07:15 Estimated GFR > 60 ml/min 03/24/20 07:15 BUN/Creatinine Ratio 70 % 03/24/20 07:15 Glucose 141 mg/dL (75-100) H 03/24/20 07:15 POC Glucose 124 mg/dL (70-105) H 03/25/20 05:48 Lactic Acid 1.00 mmol/L (0.7-2.0) 02/24/20 12:07 Calcium 8.9 mg/dL (8.4-10.2) 03/24/20 07:15 Phosphorus 3.30 mg/dL (2.5-4.5) 03/20/20 14:18 Magnesium 2.00 mg/dL (1.7-2.3) 03/20/20 14:18 Ferritin 1715.0 ng/mL (30.0-300.0) H 02/24/20 10:01 Total Bilirubin 0.60 mg/dL (0.1-1.2) 03/08/20 06:43 AST 34 units/L (5-40) 03/08/20 06:43 ALT 14 units/L (7-56) 03/08/20 06:43 Alkaline Phosphatase 56 units/L (35-129) 03/08/20 06:43 Lactate Dehydrogenase 303 units/L (91-180) H 02/24/20 09:19 Total Creatine Kinase 101 units/L (55-170) 02/24/20 19:35 CK-MB (CK-2) 3.5 ng/mL (0.0-4.0) 02/24/20 19:35 CK-MB (CK-2) Rel Index 3.4 (0-4) 02/24/20 19:35 Troponin T 0.105 ng/mL (0.00-0.029) H* D 03/23/20 07:57 C-Reactive Protein 4.70 mg/dL (0.00-1.30) H 02/28/20 11:05 NT-Pro-B Natriuret Pep 48.30 pg/mL (0-900) 02/24/20 09:19 Total Protein 5.9 g/dL (6.3-8.2) L 03/08/20 06:43 Albumin 3.2 g/dL (3.9-5) L 03/08/20 06:43 Albumin/Globulin Ratio 1.2 % 03/08/20 06:43 Prealbumin 0.090 g/L (0.200-0.400) L 02/28/20 12:54 Triglycerides 34 mg/dL (2-149) 03/22/20 18:00 Cholesterol 104 mg/dL (50-199) 03/22/20 18:00 LDL Cholesterol Direct 54 mg/dL (50-130) 03/22/20 18:00 HDL Cholesterol 40 mg/dL (40-59) 03/22/20 18:00 Cholesterol/HDL Ratio 2.60 % 03/22/20 18:00 Procalcitonin 0.16 ng/mL (<0.15) 03/09/20 08:35 Arterial Blood Glucose 176 mg/dL (65-95) H 03/08/20 12:34 Arterial Blood Ionized Calcium 4.5 mg/dL (4.6-5.3) L 03/08/20 12:34 Urine Color Yellow (Yellow) 03/08/20 08:57 Urine Turbidity Clear (Clear) 03/08/20 08:57 Urine pH 6.0 (5.0-7.0) 03/08/20 08:57 Ur Specific [place] 1.017 (1.003-1.030) 03/08/20 08:57 Urine Protein <15 mg/dl mg/dL (Negative) 03/08/20 08:57 Urine Glucose (UA) Neg mg/dL (Negative) 03/08/20 08:57 Urine Ketones Neg mg/dL (Negative) 03/08/20 08:57 Urine Blood Neg (Negative) 03/08/20 08:57 Urine Nitrite Neg (Negative) 03/08/20 08:57 Urine Bilirubin Neg (Negative) 03/08/20 08:57 Urine Urobilinogen < 2.0 mg/dL (<2.0) 03/08/20 08:57 Ur Leukocyte Esterase Neg (Negative) 03/08/20 08:57 Urine WBC (Auto) 10.0 /HPF (0.0-6.0) H 03/08/20 08:57 Urine RBC (Auto) 13.0 /HPF (0.0-6.0) 03/08/20 08:57 U Epithel Cells (Auto) < 1.0 /HPF (0-13.0) 03/08/20 08:57 Urine Bacteria (Auto) 2+ /HPF (Negative) 03/08/20 08:57 Urine Mucus Few /HPF 03/08/20 08:57 Urine Yeast (Budding) 3+ /HPF 03/08/20 08:57 Vancomycin Trough 8.0 ug/mL (5.0-20.0) 03/04/20 08:59 Coronavirus (PCR) Negative (Negative) 02/25/20 09:03 - Diagnostic Impressions Diagnostic Impressions: Echocardiogram 02/26/20 10:41 Transthoracic Echocardiogram Indication: Elevated Trop BP: 116/75 HR: 85 Conclusions *Global left ventricular wall motion and contractility are within normal limits. *The estimated ejection fraction is 50-55%. *Abnormal left ventricular diastolic filling is observed, consistent with impaired relaxation. *There is no pericardial effusion. Findings Left Ventricle: The left ventricular chamber size is normal. Global left ventricular wall motion and contractility are within normal limits. Global left ventricular systolic function is normal. The estimated ejection fraction is 50-55%. Abnormal left ventricular diastolic filling is observed, consistent with impaired relaxation. Left Atrium: The left atrial chamber size is normal. Right Ventricle: The right ventricular cavity size is normal. Right Atrium: The right atrial cavity size is normal. Aortic Valve: Mild aortic leaflet calcification is visualized. There is no evidence of aortic regurgitation. Mitral Valve: The mitral valve leaflets are mildly thickened. There is no evidence of mitral regurgitation. Tricuspid Valve: The tricuspid valve leaflets are normal. There is trace tricuspid regurgitation. The right ventricular systolic pressure is calculated at 29 mmHg. Pulmonic Valve: The pulmonic valve is not well visualized. Pericardium: There is no pericardial effusion. Aorta: The aorta appears normal. Venous: The inferior vena cava is dilated. There is less than 50% respiratory change in the inferior vena cava dimension. Measurements Chambers 2D Name Value Normal Range IVSd (2D) 0.97 cm (0.6 - 1.1) LVPWd (2D) 0.93 cm (0.6 - 1.1) LVIDd (2D) 4 cm (3.7 - 5.6) LVIDs (2D) 2.73 cm (2 - 3.8) LV FS (2D) 31.67 % - EF Teichholz (2D) 60.23 % - Ao root diameter (2D) 3.51 cm (2 - 3.7) Volumes/Mass Name Value Normal Range LA ESV SP 4CH (A/L) 8.43 ml - LA ESV SP 2CH (A/L) 18.89 ml - LA ESV BP (A/L) 13.02 ml - LA ESV BP (A/L) index 8.8 ml/m2 - LA ESV SP 4CH (MOD) 7.22 ml - LA ESV SP 2CH (MOD) 18.15 ml - LA ESV BP (MOD) 11.47 ml - LA ESV BP (MOD) index 7.75 ml/m2 - Diastolic/Systolic Function Name Value Normal Range MV E-wave Vmax 0.51 m/sec - MV deceleration time 180.22 msec - MV A-wave Vmax 0.62 m/sec - MV E:A ratio 0.82 ratio - Aortic Valve Name Value Normal Range AV Vmax 1.17 m/sec - AV VTI 19.71 cm - AV peak gradient 5.44 mmHg - AV mean gradient 3.38 mmHg - LVOT diameter 2.26 cm - LVOT Vmax 0.89 m/sec - LVOT VTI 13.72 cm - LVOT peak gradient 3.17 mmHg - LVOT mean gradient 1.67 mmHg - SV LVOT 55.03 ml - SHARAD (continuity Vmax) 3.06 cm2 - SHARAD (continuity VTI) 2.79 cm2 - Tricuspid Valve Name Value Normal Range TR Vmax 2.3 m/sec - TR peak gradient 21 mmHg - RAP 8 mmHg - RVSP 29 mmHg - IVC diameter 2.59 cm (1.2 - 2.3) Pulmonic Valve/Qp:Qs Name Value Normal Range PV acceleration time 68.51 msec - Drake/IV: Voiding Method Indwelling Catheter IV Catheter Type [Right Hand] Peripheral IV IV Catheter Type [Left Wrist] Peripheral IV IV Catheter Type [Right Peripheral IV Forearm] IV Catheter Type [Right Triple Lumen Cath Internal Jugular] IV Catheter Type [Left Forearm INT / Saline Lock ] IV Catheter Type [Right Triple Lumen Cath Femoral] IV Catheter Type [Right INT / Saline Lock Antecubital] Active Medications - Current Medications Current Medications: Generic Name Dose Route Start Last Admin Trade Name Freq PRN Reason Stop Dose Admin Acetaminophen 650 mg 02/24/20 15:13 03/08/20 00:10 Tylenol PO 650 mg Q4H PRN Administration Pain, Mild (1-3) Albuterol 2.5 mg 02/24/20 15:13 Proventil IH Q4HRT PRN Shortness Of Breath Lipase/Protease/Amylase 1 each 02/26/20 11:[address] 10,500 Unit FEEDTUBE PRN PRN For Clogged Feeding Tube Bisacodyl 10 mg 03/12/20 18:00 03/15/20 17:50 Dulcolax AL 10 mg QDAY PRN Administration Bowel Movement Docusate Sodium 100 mg 03/12/20 22:00 03/25/20 00:34 Colace PO 100 mg BID ALISA Administration Enoxaparin Sodium 40 mg 03/20/20 22:00 03/25/20 00:35 Enoxaparin SUB-Q 40 mg QDAY@2200 ALISA Administration Protocol Glycopyrrolate 2 mg 03/08/20 20:00 03/24/20 20:26 Glycopyrrolate PO 2 mg TID ALISA Administration Lansoprazole 30 mg 02/28/20 10:00 03/24/20 09:00 Prevacid Solutab FEEDTUBE 30 mg QDAY ALISA Administration Metoprolol Tartrate 12.5 mg 02/24/20 22:00 03/25/20 00:34 Metoprolol PO 12.5 mg BID ALISA Administration Morphine Sulfate 2 mg 02/29/20 16:42 03/25/20 00:31 Morphine IV 2 mg Q4H PRN Administration Pain, Moderate (4-6) Polyethylene Glycol 17 gm 03/12/20 22:00 03/25/20 00:34 Miralax 3350 PO 17 gm QHS ALISA Administration Scopolamine 1 each 03/03/20 14:00 03/24/20 09:01 Transderm-Scop TD 1 each Q3D ALISA Administration Simple Syrup 15 ml 02/26/20 11:16 Simple Syrup FEEDTUBE PRN PRN Hypoglycemia Simple Syrup 30 ml 02/26/20 11:16 Simple Syrup FEEDTUBE PRN PRN Hypoglycemia Sodium Bicarbonate 325 mg 02/26/20 11:16 Sodium Bicarbonate FEEDTUBE PRN PRN For Clogged Feeding Tube Tamsulosin HCl 0.4 mg 03/09/20 18:00 03/24/20 09:00 Flomax PO 0.4 mg QDAY ALISA Administration Zolpidem Tartrate 5 mg 03/24/20 14:53 03/24/20 20:27 Ambien PO 5 mg QHS PRN Administration Sleep Nutrition/Malnutrition Assess - Dietary Evaluation Nutrition/Malnutrition Findings: Nutrition Notes Start: 02/26/20 10:40 Freq: Status: Active Protocol: Document 03/21/20 13:36 LP (Rec: 03/21/20 13:41 LP [id number]) Nutrition Notes Initial or Follow up Reassessment Current Diagnosis Decubitus(Pressure Ulcer), Sepsis,Respiratory Failure Other Pertinent Diagnosis COVID-19 (-), ALS, pneumonia, Hip/buttock PU Current Diet Vital AF 1.2 at 75ml/hr (goal rate) Labs/Tests Na 136 Pertinent Medications Reviewed Height 6 ft Weight 66.4 kg Fisher Body Weight (kg) 80.90 BMI 19.8 Weight Status Appropriate Subjective/Other Information Pt continues tolerating TF at goal rate. PEG placed. Percent of energy/protein needs met: 100%/100% Burn Absent Trauma Absent GI Symptoms None Skin Integrity/Comment Pressure Ulcer Stage 2 Current % PO Negligible Minimum of two criteria Yes Body Fat Depletion Mild depletion (non-severe) Muscle Mass Mild Depletion (non-severe) Reduced Route Vending Machine Servicer Strength Measurably Reduced (severe) #3 Nutrition Diagnosis Malnutrition Diagnosis Progress(for reassessment Continues documentation) #2 Nutrition Diagnosis Inadequate oral intake Diagnosis Progress(for reassessment Continues documentation) #1 Nutrition Diagnosis Increased nutrient needs ( specify in comment below) Diagnosis Progress(for reassessment Continues documentation) Is patient on ventilator? Yes Is Patient Ambulatory and/or Out of Bed No REE-([facility]-confined to bed) 1825.272 Kcal/Kg value to use for calculation 35 Approximate Energy Requirements Using 2324 kcal/Kg Calculation Used for Recommendations Kcal/kg Additional Notes Protein needs: 80-133 g (1.2-2 g/ kg ABW) Fluid: 1ml/kcal Nutrition Intervention Change Diet Order: Continue TF Nutrition Support: Vital AF 1.2 at 75ml/hr. Flush 200ml q4h For hyponatremia, flush 150 mL q4h Kcal 2,160 Protein (gm) 135 Fluid (mL) 1,460 Add Supplement/Snack (indicate name/kcal Will BID /protein ) Provides kCal: 190 Provides Protein (gm) 5 Goal #1 Meet at least 80% of energy and protein needs via TF Goal #2 Wound healing Anticipated Discharge Needs: Unable to determine at this time Follow-Up By: 03/28/20 Additional Comments Follow for stable TF
[2020-03-25] MEDS: LANSOPRAZOLE 30 MG SOLUTAB FEEDTUBE SCH (09:49)
[2020-03-25] MEDS: TAMSULOSIN 0.4 MG CAP PO SCH (09:49)
--- NOTE | 2020-03-25 12:36 | Progress Note ---
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 Respiratory Failure s/p trach Severe Sepsis with Shock Bilateral Pneumonia (Possible aspiration) History of ALS on Trilogy Oropharyngeal Dysphagia s/p PEG Acute toxic metabolic encephalopathy-resolved Elevated D-dimer Elevated troponin possibly type 2 ischemia Leukocytsois Discussed with RN, case management to arrange for insurance attorney to maybe facetime to "speak" with him today Continue to trend WCC and temperature curve Continue Ambien for sleep at night Continue all supportive care - continue daytime PSV as tolerated He is not tolerating ATP trials and may end up vent dependant. Continue to attempt ATP trials as tolerated - ABG, CXR as clinically indicated - continue Robinul & scopolamine for secretion control - Keep K at 4, Mg at 2 and Phos at 2.5 to optimize respiratory muscle function - wound care per RN/WCN, off loading, frequent turning, mobility per facility protocol - wean supplemental oxygen for target O2 sats > 92% - VAP bundle addressed, aspiration precautions, HOB >40 - continue lung protective strategies - continue bronchodilators with pulmonary hygiene per RT - s/p empiric antiinfectives per ID recs (Rocephin and Zithromax) - enteral nutrition at goal rate as tolerated - accuchecks with glycemic control per SSI (While critically ill target blood glucose of 140-180 mg/dL; avoid hypoglycemia) - avoid nephrotoxins, renally dose all medications - avoid benzodiazepines, reduce the possibility of delirium - prn analgesia per CPOT score - Maintenance of sleep-wake cycle, avoid delirium - Continue stress ulcer and VTE prophylaxis (Famotidine and Enoxaparin) -Reardon in place for urinary retention and sacral decubitus ulcer - PT/OT/ROM exercises - Monitor hemodynamics closely - continue other care per attending / other consultants - discharge planning ongoing concurrently CONDITION: FAIR PROGNOSIS: GUARDED CODE STATUS: FULL CODE Subjective Date of service: 03/25/20 Principal diagnosis: Ac on Ch Hypercapnic & hypoxemic Resp Failure; Severe Sepsis; Jamar PNA; ALS Interval history: Patient is seen today for: Acute on Chronic Hypercapnic & hypoxemic Respiratory Failure; Severe Sepsis with Shock; Bilateral Pneumonia (Possible aspiration); History of ALS on Trilogy; Acute toxic metabolic encephalopathy Seen and examined at bedside; 24hour events reviewed; nursing and respiratory care staff consulted; no adverse overnight events reported to me; resting in bed; remains on MVS; s/p trach and PEG Tolerating tube feedings. Tolerating PSV at the bedside, continues to fail ATP trials No fevers, no diarrhea, no vomiting. Slept well last night. Facetime with his girlfriend Objective Vital Signs - 12hr 03/25/20 03/25/20 03/25/20 00:46 01:00 01:16 Temperature Pulse Rate 98 H 105 H 103 H Pulse Rate [ From Monitor] Respiratory 14 17 17 Rate Blood Pressure 116/80 114/77 O2 Sat by Pulse 98 97 98 Oximetry O2 Sat by Pulse Oximetry [ Assessment] 03/25/20 03/25/20 03/25/20 01:30 01:46 02:00 Temperature Pulse Rate 108 H 111 H 113 H Pulse Rate [ From Monitor] Respiratory 26 H 20 20 Rate Blood Pressure 119/77 119/77 111/81 O2 Sat by Pulse 97 99 99 Oximetry O2 Sat by Pulse Oximetry [ Assessment] 03/25/20 03/25/20 03/25/20 02:16 02:30 02:46 Temperature Pulse Rate 110 H 110 H 111 H Pulse Rate [ From Monitor] Respiratory 14 24 16 Rate Blood Pressure 111/81 109/77 109/77 O2 Sat by Pulse 99 99 99 Oximetry O2 Sat by Pulse Oximetry [ Assessment] 03/25/20 03/25/20 03/25/20 03:00 03:16 03:30 Temperature Pulse Rate 112 H 112 H 111 H Pulse Rate [ From Monitor] Respiratory 22 15 22 Rate Blood Pressure 118/77 118/77 119/82 O2 Sat by Pulse 99 99 98 Oximetry O2 Sat by Pulse Oximetry [ Assessment] 03/25/20 03/25/20 03/25/20 03:46 04:00 04:16 Temperature 99.4 F Pulse Rate 107 H 109 H 105 H Pulse Rate [ 110 H From Monitor] Respiratory 16 17 14 Rate Blood Pressure 119/82 114/81 114/81 O2 Sat by Pulse 99 99 99 Oximetry O2 Sat by Pulse 98 Oximetry [ Assessment] 03/25/20 03/25/20 03/25/20 04:17 04:30 04:46 Temperature Pulse Rate 107 H 110 H 117 H Pulse Rate [ From Monitor] Respiratory 20 16 Rate Blood Pressure 114/81 121/76 121/76 O2 Sat by Pulse 98 99 100 Oximetry O2 Sat by Pulse Oximetry [ Assessment] 03/25/20 03/25/20 03/25/20 05:00 05:16 05:30 Temperature Pulse Rate 109 H 109 H 111 H Pulse Rate [ From Monitor] Respiratory 13 20 19 Rate Blood Pressure 118/81 121/76 123/82 O2 Sat by Pulse 98 99 99 Oximetry O2 Sat by Pulse Oximetry [ Assessment] 03/25/20 03/25/20 03/25/20 05:46 06:00 06:16 Temperature Pulse Rate 107 H 107 H 114 H Pulse Rate [ From Monitor] Respiratory 16 24 22 Rate Blood Pressure 123/82 125/86 125/86 O2 Sat by Pulse 99 99 99 Oximetry O2 Sat by Pulse Oximetry [ Assessment] 03/25/20 03/25/20 03/25/20 06:30 06:46 07:00 Temperature Pulse Rate 103 H 103 H 103 H Pulse Rate [ From Monitor] Respiratory 15 16 15 Rate Blood Pressure 124/84 124/84 132/89 O2 Sat by Pulse 99 99 97 Oximetry O2 Sat by Pulse Oximetry [ Assessment] 03/25/20 03/25/20 03/25/20 07:16 07:30 07:46 Temperature Pulse Rate 105 H 105 H 105 H Pulse Rate [ From Monitor] Respiratory 14 17 15 Rate Blood Pressure 124/84 124/84 124/84 O2 Sat by Pulse 98 99 99 Oximetry O2 Sat by Pulse Oximetry [ Assessment] 03/25/20 03/25/20 03/25/20 08:00 08:16 08:30 Temperature 98.5 F Pulse Rate 107 H 107 H 106 H Pulse Rate [ 109 H From Monitor] Respiratory 13 16 14 Rate Blood Pressure 120/84 120/84 109/80 O2 Sat by Pulse 99 99 99 Oximetry O2 Sat by Pulse Oximetry [ Assessment] 03/25/20 03/25/20 03/25/20 08:40 08:46 09:00 Temperature Pulse Rate 114 H 107 H Pulse Rate [ From Monitor] Respiratory 13 17 Rate Blood Pressure 109/80 119/80 O2 Sat by Pulse 99 98 98 Oximetry O2 Sat by Pulse Oximetry [ Assessment] 03/25/20 03/25/20 03/25/20 09:16 09:30 09:46 Temperature Pulse Rate 102 H 114 H 111 H Pulse Rate [ From Monitor] Respiratory 22 23 28 H Rate Blood Pressure 119/80 115/80 115/80 O2 Sat by Pulse 98 99 99 Oximetry O2 Sat by Pulse Oximetry [ Assessment] 03/25/20 03/25/20 03/25/20 09:49 09:52 10:00 Temperature Pulse Rate 108 H 114 H 108 H Pulse Rate [ From Monitor] Respiratory 20 22 Rate Blood Pressure 115/80 115/80 120/82 O2 Sat by Pulse 99 99 Oximetry O2 Sat by Pulse Oximetry [ Assessment] 03/25/20 03/25/20 03/25/20 10:16 10:30 10:46 Temperature Pulse Rate 109 H 95 H 93 H Pulse Rate [ From Monitor] Respiratory 18 26 H 13 Rate Blood Pressure 120/82 115/81 115/81 O2 Sat by Pulse 99 100 96 Oximetry O2 Sat by Pulse Oximetry [ Assessment] 03/25/20 03/25/20 03/25/20 11:00 11:16 11:30 Temperature Pulse Rate 96 H 93 H 91 H Pulse Rate [ From Monitor] Respiratory 12 9 L 9 L Rate Blood Pressure 115/77 115/77 107/77 O2 Sat by Pulse 99 98 98 Oximetry O2 Sat by Pulse Oximetry [ Assessment] 03/25/20 03/25/20 11:44 12:00 Temperature 99.3 F Pulse Rate 92 H Pulse Rate [ From Monitor] Respiratory 11 L Rate Blood Pressure 115/77 O2 Sat by Pulse 99 Oximetry O2 Sat by Pulse Oximetry [ Assessment] Constitutional: no acute distress, other (thin middle aged male with normal respiratory effort at rest on MVS) Eyes: non-icteric ENT: oropharynx moist, other (S/P Tracheostomy) Neck: supple, no lymphadenopathy, no JVD Effort: mildly labored Ascultation: Bilateral: clear, diminished breath sounds, wheezes, rhonchi Percussion: Bilateral: not dull Cardiovascular: regular rate and rhythm, other (S1,S2, no murmurs) Gastrointestinal: normoactive bowel sounds, soft, non-tender, non-distended, other (+ distended but non tender suprapubis) Integumentary: normal, decubitus ulcer (sacral / gluteal) Extremities: no cyanosis, no edema, pulses normal, other (atrophic looking limb s) Neurologic: pupils equal and round, other (motor strength in extremities 1-2/5, awake, alert, mouths words to make needs known) Psychiatric: depressed CBC and BMP: 03/26/20 08:49 03/26/20 08:49 ABG, PT/INR, D-dimer: ABG ABG pH 7.371 (7.320-7.450) 03/08/20 12:34 POC ABG pCO2 63.1 mmHg (32.0-48.0) H 03/08/20 12:34 ABG pCO2 60.1 mm Hg 03/06/20 04:34 POC ABG pO2 90.5 mmHg (83-108) 03/08/20 12:34 ABG pO2 88.6 mm Hg (80.0-90.0) 03/06/20 04:34 POC ABG HCO3 35.7 03/08/20 12:34 ABG O2 Saturation 97.0 % (95.0-99.0) 03/06/20 04:34 PT/INR, D-dimer PT 15.6 Sec. (12.2-14.9) H 02/24/20 09:19 INR 1.21 (0.87-1.13) H 02/24/20 09:19 D-Dimer 1311.96 ng/mlDDU (0-234) H 02/24/20 09:19 Abnormal lab findings: Abnormal Labs 02/24/20 02/24/20 02/24/20 09:19 09:19 09:19 WBC 20.2 H RBC 5.05 H Hgb Hct MCV MCH RDW 15.3 H Plt Count Lymph % (Auto) [place] # (Auto) Seg Neutrophils % Seg Neuts % (Manual) 86.0 H Lymphocytes % (Manual) 1.0 L Monocytes % (Manual) Basophils % (Manual) Seg Neutrophils # Seg Neutrophils # Man 17.4 H Lymphocytes # (Manual) 0.2 L Monocytes # (Manual) Eosinophils # (Manual) Basophils # (Manual) PT 15.6 H INR 1.21 H D-Dimer 1311.96 H ABG pH POC ABG pCO2 POC ABG pO2 ABG pO2 ABG HCO3 ABG O2 Saturation ABG Base Excess ABG Hemoglobin ABG Oxyhemoglobin ABG Potassium ABG Glucose Oxyhemoglobin Carboxyhemoglobin Sodium 135 L Potassium 3.2 L Chloride 92.2 L Carbon Dioxide BUN 6 L Creatinine < 0.2 L Glucose 124 H POC Glucose Calcium Ferritin Total Bilirubin 2.30 H Alkaline Phosphatase 132 H Lactate Dehydrogenase Troponin T 0.080 H C-Reactive Protein Total Protein Albumin 3.6 L Prealbumin LDL Cholesterol Direct 41 L Arterial Blood Glucose Arterial Blood Ionized Calcium Urine WBC (Auto) 02/24/20 02/24/20 02/24/20 09:19 09:58 10:01 WBC RBC Hgb Hct MCV MCH RDW Plt Count Lymph % (Auto) [place] # (Auto) Seg Neutrophils % Seg Neuts % (Manual) Lymphocytes % (Manual) Monocytes % (Manual) Basophils % (Manual) Seg Neutrophils # Seg Neutrophils # Man Lymphocytes # (Manual) Monocytes # (Manual) Eosinophils # (Manual) Basophils # (Manual) PT INR D-Dimer ABG pH 7.176 L* POC ABG pCO2 POC ABG pO2 ABG pO2 91.2 H ABG HCO3 ABG O2 Saturation ABG Base Excess -4.6 L ABG Hemoglobin ABG Oxyhemoglobin ABG Potassium ABG Glucose Oxyhemoglobin 92.6 L Carboxyhemoglobin Sodium Potassium Chloride Carbon Dioxide BUN Creatinine Glucose POC Glucose Calcium Ferritin 1715.0 H Total Bilirubin Alkaline Phosphatase Lactate Dehydrogenase 303 H Troponin T C-Reactive Protein 26.10 H Total Protein Albumin Prealbumin LDL Cholesterol Direct Arterial Blood Glucose Arterial Blood Ionized Calcium Urine WBC (Auto) 02/24/20 02/24/20 02/24/20 11:52 13:45 19:35 WBC RBC Hgb Hct MCV MCH RDW Plt Count Lymph % (Auto) [place] # (Auto) Seg Neutrophils % Seg Neuts % (Manual) Lymphocytes % (Manual) Monocytes % (Manual) Basophils % (Manual) Seg Neutrophils # Seg Neutrophils # Man Lymphocytes # (Manual) Monocytes # (Manual) Eosinophils # (Manual) Basophils # (Manual) PT INR D-Dimer ABG pH 7.051 L* 7.300 L POC ABG pCO2 POC ABG pO2 ABG pO2 94.7 H 75.1 L ABG HCO3 18.0 L ABG O2 Saturation 93.5 L ABG Base Excess -6.8 L -7.8 L ABG Hemoglobin 13.2 L 11.9 L ABG Oxyhemoglobin ABG Potassium ABG Glucose Oxyhemoglobin 91.0 L 92.7 L Carboxyhemoglobin Sodium Potassium Chloride Carbon Dioxide BUN Creatinine Glucose POC Glucose Calcium Ferritin Total Bilirubin Alkaline Phosphatase Lactate Dehydrogenase Troponin T 0.034 H D C-Reactive Protein Total Protein Albumin Prealbumin LDL Cholesterol Direct Arterial Blood Glucose Arterial Blood Ionized Calcium Urine WBC (Auto) 1002/25/20 02/25/20 04:00 04:00 12:26 WBC 22.9 H RBC Hgb Hct MCV 83 L MCH 27 L RDW Plt Count 468 H Lymph % (Auto) [place] # (Auto) Seg Neutrophils % Seg Neuts % (Manual) 89.0 H Lymphocytes % (Manual) 7.0 L Monocytes % (Manual) Basophils % (Manual) Seg Neutrophils # Seg Neutrophils # Man 20.4 H Lymphocytes # (Manual) Monocytes # (Manual) Eosinophils # (Manual) Basophils # (Manual) PT INR D-Dimer ABG pH POC ABG pCO2 POC ABG pO2 ABG pO2 ABG HCO3 ABG O2 Saturation ABG Base Excess ABG Hemoglobin ABG Oxyhemoglobin ABG Potassium 2.6 L ABG Glucose 142 H Oxyhemoglobin Carboxyhemoglobin Sodium Potassium 3.2 L Chloride Carbon Dioxide 18 L BUN Creatinine 0.2 L Glucose 114 H POC Glucose Calcium Ferritin Total Bilirubin Alkaline Phosphatase Lactate Dehydrogenase Troponin T C-Reactive Protein Total Protein Albumin 3.5 L Prealbumin LDL Cholesterol Direct Arterial Blood Glucose 142 H Arterial Blood Ionized Calcium Urine WBC (Auto) 02/26/20 02/26/20 02/26/20 15:58 17:00 23:43 WBC RBC Hgb Hct MCV MCH RDW Plt Count Lymph % (Auto) [place] # (Auto) Seg Neutrophils % Seg Neuts % (Manual) Lymphocytes % (Manual) Monocytes % (Manual) Basophils % (Manual) Seg Neutrophils # Seg Neutrophils # Man Lymphocytes # (Manual) Monocytes # (Manual) Eosinophils # (Manual) Basophils # (Manual) PT INR D-Dimer ABG pH 7.502 H POC ABG pCO2 POC ABG pO2 213.6 H ABG pO2 ABG HCO3 ABG O2 Saturation ABG Base Excess ABG Hemoglobin ABG Oxyhemoglobin 99.2 H ABG Potassium 2.9 L ABG Glucose 160 H Oxyhemoglobin Carboxyhemoglobin 0.4 L Sodium Potassium Chloride Carbon Dioxide BUN Creatinine Glucose POC Glucose 189 H 120 H Calcium Ferritin Total Bilirubin Alkaline Phosphatase Lactate Dehydrogenase Troponin T C-Reactive Protein Total Protein Albumin Prealbumin LDL Cholesterol Direct Arterial Blood Glucose 160 H Arterial Blood Ionized Calcium 4.5 L Urine WBC (Auto) 02/27/20 02/27/20 02/27/20 05:00 07:04 17:45 WBC RBC Hgb Hct MCV MCH RDW Plt Count Lymph % (Auto) [place] # (Auto) Seg Neutrophils % Seg Neuts % (Manual) Lymphocytes % (Manual) Monocytes % (Manual) Basophils % (Manual) Seg Neutrophils # Seg Neutrophils # Man Lymphocytes # (Manual) Monocytes # (Manual) Eosinophils # (Manual) Basophils # (Manual) PT INR D-Dimer ABG pH 7.524 H POC ABG pCO2 POC ABG pO2 ABG pO2 ABG HCO3 ABG O2 Saturation ABG Base Excess ABG Hemoglobin ABG Oxyhemoglobin ABG Potassium 3.0 L ABG Glucose 143 H Oxyhemoglobin Carboxyhemoglobin Sodium Potassium Chloride Carbon Dioxide BUN Creatinine Glucose POC Glucose 154 H 175 H Calcium Ferritin Total Bilirubin Alkaline Phosphatase Lactate Dehydrogenase Troponin T C-Reactive Protein Total Protein Albumin Prealbumin LDL Cholesterol Direct Arterial Blood Glucose 143 H Arterial Blood Ionized Calcium Urine WBC (Auto) 02/27/20 02/28/20 02/28/20 Unknown 00:21 04:15 WBC 18.7 H RBC Hgb Hct MCV MCH RDW Plt Count Lymph % (Auto) 8.7 L [place] # (Auto) 1.2 H Seg Neutrophils % 84.6 H Seg Neuts % (Manual) Lymphocytes % (Manual) Monocytes % (Manual) Basophils % (Manual) Seg Neutrophils # 15.9 H Seg Neutrophils # Man Lymphocytes # (Manual) Monocytes # (Manual) Eosinophils # (Manual) Basophils # (Manual) PT INR D-Dimer ABG pH POC ABG pCO2 POC ABG pO2 ABG pO2 ABG HCO3 ABG O2 Saturation ABG Base Excess ABG Hemoglobin ABG Oxyhemoglobin ABG Potassium ABG Glucose Oxyhemoglobin Carboxyhemoglobin Sodium Potassium 2.9 L* Chloride Carbon Dioxide 33 H D BUN Creatinine < 0.2 L Glucose 157 H POC Glucose 134 H Calcium Ferritin Total Bilirubin Alkaline Phosphatase Lactate Dehydrogenase Troponin T C-Reactive Protein Total Protein Albumin Prealbumin LDL Cholesterol Direct Arterial Blood Glucose Arterial Blood Ionized Calcium Urine WBC (Auto) 02/28/20 02/28/20 02/28/20 04:15 05:16 05:39 WBC RBC Hgb Hct MCV MCH RDW Plt Count Lymph % (Auto) [place] # (Auto) Seg Neutrophils % Seg Neuts % (Manual) Lymphocytes % (Manual) Monocytes % (Manual) Basophils % (Manual) Seg Neutrophils # Seg Neutrophils # Man Lymphocytes # (Manual) Monocytes # (Manual) Eosinophils # (Manual) Basophils # (Manual) PT INR D-Dimer ABG pH POC ABG pCO2 POC ABG pO2 ABG pO2 142.9 H ABG HCO3 34.1 H ABG O2 Saturation ABG Base Excess 8.3 H ABG Hemoglobin ABG Oxyhemoglobin ABG Potassium ABG Glucose Oxyhemoglobin Carboxyhemoglobin Sodium 151 H Potassium Chloride Carbon Dioxide 32 H BUN Creatinine 0.2 L Glucose 167 H POC Glucose 138 H Calcium Ferritin Total Bilirubin Alkaline Phosphatase Lactate Dehydrogenase Troponin T C-Reactive Protein Total Protein Albumin Prealbumin LDL Cholesterol Direct Arterial Blood Glucose Arterial Blood Ionized Calcium Urine WBC (Auto) 02/28/20 02/28/20 02/28/20 11:05 11:33 12:54 WBC RBC Hgb Hct MCV MCH RDW Plt Count Lymph % (Auto) [place] # (Auto) Seg Neutrophils % Seg Neuts % (Manual) Lymphocytes % (Manual) Monocytes % (Manual) Basophils % (Manual) Seg Neutrophils # Seg Neutrophils # Man Lymphocytes # (Manual) Monocytes # (Manual) Eosinophils # (Manual) Basophils # (Manual) PT INR D-Dimer ABG pH POC ABG pCO2 POC ABG pO2 ABG pO2 ABG HCO3 ABG O2 Saturation ABG Base Excess ABG Hemoglobin ABG Oxyhemoglobin ABG Potassium ABG Glucose Oxyhemoglobin Carboxyhemoglobin Sodium Potassium Chloride Carbon Dioxide BUN Creatinine Glucose POC Glucose 160 H Calcium Ferritin Total Bilirubin Alkaline Phosphatase Lactate Dehydrogenase Troponin T C-Reactive Protein 4.70 H Total Protein Albumin Prealbumin 0.090 L LDL Cholesterol Direct Arterial Blood Glucose Arterial Blood Ionized Calcium Urine WBC (Auto) 02/28/20 02/29/20 02/29/20 17:34 00:44 04:05 WBC 19.6 H RBC Hgb Hct MCV MCH 27 L RDW 15.4 H Plt Count Lymph % (Auto) [place] # (Auto) Seg Neutrophils % Seg Neuts % (Manual) 86.0 H Lymphocytes % (Manual) 7.0 L Monocytes % (Manual) Basophils % (Manual) Seg Neutrophils # Seg Neutrophils # Man 16.9 H Lymphocytes # (Manual) Monocytes # (Manual) 1.2 H Eosinophils # (Manual) Basophils # (Manual) PT INR D-Dimer ABG pH POC ABG pCO2 POC ABG pO2 ABG pO2 ABG HCO3 ABG O2 Saturation ABG Base Excess ABG Hemoglobin ABG Oxyhemoglobin ABG Potassium ABG Glucose Oxyhemoglobin Carboxyhemoglobin Sodium Potassium Chloride Carbon Dioxide BUN Creatinine Glucose POC Glucose 136 H 156 H Calcium Ferritin Total Bilirubin Alkaline Phosphatase Lactate Dehydrogenase Troponin T C-Reactive Protein Total Protein Albumin Prealbumin LDL Cholesterol Direct Arterial Blood Glucose Arterial Blood Ionized Calcium Urine WBC (Auto) 02/29/20 02/29/20 02/29/20 04:05 05:14 05:33 WBC RBC Hgb Hct MCV MCH RDW Plt Count Lymph % (Auto) [place] # (Auto) Seg Neutrophils % Seg Neuts % (Manual) Lymphocytes % (Manual) Monocytes % (Manual) Basophils % (Manual) Seg Neutrophils # Seg Neutrophils # Man Lymphocytes # (Manual) Monocytes # (Manual) Eosinophils # (Manual) Basophils # (Manual) PT INR D-Dimer ABG pH POC ABG pCO2 54.3 H POC ABG pO2 124.8 H ABG pO2 ABG HCO3 ABG O2 Saturation ABG Base Excess ABG Hemoglobin ABG Oxyhemoglobin ABG Potassium ABG Glucose 185 H Oxyhemoglobin Carboxyhemoglobin Sodium 148 H Potassium Chloride Carbon Dioxide 33 H BUN Creatinine < 0.2 L Glucose 173 H POC Glucose 152 H Calcium Ferritin Total Bilirubin Alkaline Phosphatase Lactate Dehydrogenase Troponin T C-Reactive Protein Total Protein Albumin Prealbumin LDL Cholesterol Direct Arterial Blood Glucose 185 H Arterial Blood Ionized Calcium Urine WBC (Auto) 03/01/20 03/01/20 03/01/20 00:00 03:45 04:33 WBC 23.1 H RBC Hgb Hct MCV MCH 27 L RDW 15.3 H Plt Count Lymph % (Auto) [place] # (Auto) Seg Neutrophils % Seg Neuts % (Manual) 92.0 H Lymphocytes % (Manual) 6.0 L Monocytes % (Manual) Basophils % (Manual) Seg Neutrophils # Seg Neutrophils # Man 21.3 H Lymphocytes # (Manual) Monocytes # (Manual) Eosinophils # (Manual) 0.5 H Basophils # (Manual) PT INR D-Dimer ABG pH 7.492 H POC ABG pCO2 POC ABG pO2 ABG pO2 157.1 H ABG HCO3 32.3 H ABG O2 Saturation ABG Base Excess 8.1 H ABG Hemoglobin 13.2 L ABG Oxyhemoglobin ABG Potassium ABG Glucose Oxyhemoglobin Carboxyhemoglobin Sodium Potassium Chloride Carbon Dioxide BUN Creatinine Glucose POC Glucose 109 H Calcium Ferritin Total Bilirubin Alkaline Phosphatase Lactate Dehydrogenase Troponin T C-Reactive Protein Total Protein Albumin Prealbumin LDL Cholesterol Direct Arterial Blood Glucose Arterial Blood Ionized Calcium Urine WBC (Auto) 11/04/20 11/04/20 11/04/20 04:33 05:29 12:32 WBC RBC Hgb Hct MCV MCH RDW Plt Count Lymph % (Auto) [place] # (Auto) Seg Neutrophils % Seg Neuts % (Manual) Lymphocytes % (Manual) Monocytes % (Manual) Basophils % (Manual) Seg Neutrophils # Seg Neutrophils # Man Lymphocytes # (Manual) Monocytes # (Manual) Eosinophils # (Manual) Basophils # (Manual) PT INR D-Dimer ABG pH POC ABG pCO2 POC ABG pO2 ABG pO2 ABG HCO3 ABG O2 Saturation ABG Base Excess ABG Hemoglobin ABG Oxyhemoglobin ABG Potassium ABG Glucose Oxyhemoglobin Carboxyhemoglobin Sodium 146 H Potassium Chloride Carbon Dioxide 32 H BUN Creatinine < 0.2 L Glucose 120 H POC Glucose 120 H 128 H Calcium Ferritin Total Bilirubin Alkaline Phosphatase Lactate Dehydrogenase Troponin T C-Reactive Protein Total Protein Albumin Prealbumin LDL Cholesterol Direct Arterial Blood Glucose Arterial Blood Ionized Calcium Urine WBC (Auto) 03/01/20 03/01/20 03/02/20 17:38 23:46 06:13 WBC RBC Hgb Hct MCV MCH RDW Plt Count Lymph % (Auto) [place] # (Auto) Seg Neutrophils % Seg Neuts % (Manual) Lymphocytes % (Manual) Monocytes % (Manual) Basophils % (Manual) Seg Neutrophils # Seg Neutrophils # Man Lymphocytes # (Manual) Monocytes # (Manual) Eosinophils # (Manual) Basophils # (Manual) PT INR D-Dimer ABG pH POC ABG pCO2 POC ABG pO2 ABG pO2 ABG HCO3 ABG O2 Saturation ABG Base Excess ABG Hemoglobin ABG Oxyhemoglobin ABG Potassium ABG Glucose Oxyhemoglobin Carboxyhemoglobin Sodium Potassium Chloride Carbon Dioxide BUN Creatinine Glucose POC Glucose 114 H 121 H 120 H Calcium Ferritin Total Bilirubin Alkaline Phosphatase Lactate Dehydrogenase Troponin T C-Reactive Protein Total Protein Albumin Prealbumin LDL Cholesterol Direct Arterial Blood Glucose Arterial Blood Ionized Calcium Urine WBC (Auto) 03/02/20 03/02/20 03/03/20 09:47 09:47 10:21 WBC 23.6 H RBC Hgb Hct MCV MCH RDW 15.3 H Plt Count 494 H Lymph % (Auto) [place] # (Auto) Seg Neutrophils % Seg Neuts % (Manual) 85.0 H Lymphocytes % (Manual) 6.0 L Monocytes % (Manual) Basophils % (Manual) Seg Neutrophils # Seg Neutrophils # Man 20.1 H Lymphocytes # (Manual) Monocytes # (Manual) 1.7 H Eosinophils # (Manual) Basophils # (Manual) PT INR D-Dimer ABG pH POC ABG pCO2 POC ABG pO2 ABG pO2 ABG HCO3 ABG O2 Saturation ABG Base Excess ABG Hemoglobin ABG Oxyhemoglobin ABG Potassium 3.3 L ABG Glucose 158 H Oxyhemoglobin Carboxyhemoglobin Sodium Potassium Chloride Carbon Dioxide BUN Creatinine < 0.2 L Glucose 177 H POC Glucose Calcium Ferritin Total Bilirubin Alkaline Phosphatase Lactate Dehydrogenase Troponin T C-Reactive Protein Total Protein Albumin Prealbumin LDL Cholesterol Direct Arterial Blood Glucose 158 H Arterial Blood Ionized Calcium Urine WBC (Auto) 03/03/20 03/04/20 03/04/20 21:30 00:00 12:23 WBC RBC Hgb Hct MCV MCH RDW Plt Count Lymph % (Auto) [place] # (Auto) Seg Neutrophils % Seg Neuts % (Manual) Lymphocytes % (Manual) Monocytes % (Manual) Basophils % (Manual) Seg Neutrophils # Seg Neutrophils # Man Lymphocytes # (Manual) Monocytes # (Manual) Eosinophils # (Manual) Basophils # (Manual) PT INR D-Dimer ABG pH 7.328 L POC ABG pCO2 POC ABG pO2 ABG pO2 68.4 L ABG HCO3 35.0 H ABG O2 Saturation 93.9 L ABG Base Excess 6.8 H ABG Hemoglobin 12.7 L ABG Oxyhemoglobin ABG Potassium ABG Glucose Oxyhemoglobin 91.9 L Carboxyhemoglobin Sodium Potassium Chloride Carbon Dioxide BUN Creatinine Glucose POC Glucose 187 H 163 H Calcium Ferritin Total Bilirubin Alkaline Phosphatase Lactate Dehydrogenase Troponin T C-Reactive Protein Total Protein Albumin Prealbumin LDL Cholesterol Direct Arterial Blood Glucose Arterial Blood Ionized Calcium Urine WBC (Auto) 03/04/20 03/04/20 03/05/20 18:15 21:30 06:02 WBC RBC Hgb Hct MCV MCH RDW Plt Count Lymph % (Auto) [place] # (Auto) Seg Neutrophils % Seg Neuts % (Manual) Lymphocytes % (Manual) Monocytes % (Manual) Basophils % (Manual) Seg Neutrophils # Seg Neutrophils # Man Lymphocytes # (Manual) Monocytes # (Manual) Eosinophils # (Manual) Basophils # (Manual) PT INR D-Dimer ABG pH 7.297 L POC ABG pCO2 POC ABG pO2 ABG pO2 ABG HCO3 41.0 H ABG O2 Saturation ABG Base Excess 11.0 H ABG Hemoglobin 13.1 L ABG Oxyhemoglobin ABG Potassium ABG Glucose Oxyhemoglobin 94.5 L Carboxyhemoglobin Sodium Potassium Chloride Carbon Dioxide BUN Creatinine Glucose POC Glucose 192 H 127 H Calcium Ferritin Total Bilirubin Alkaline Phosphatase Lactate Dehydrogenase Troponin T C-Reactive Protein Total Protein Albumin Prealbumin LDL Cholesterol Direct Arterial Blood Glucose Arterial Blood Ionized Calcium Urine WBC (Auto) 03/05/20 03/05/20 03/06/20 12:09 16:42 00:24 WBC RBC Hgb Hct MCV MCH RDW Plt Count Lymph % (Auto) [place] # (Auto) Seg Neutrophils % Seg Neuts % (Manual) Lymphocytes % (Manual) Monocytes % (Manual) Basophils % (Manual) Seg Neutrophils # Seg Neutrophils # Man Lymphocytes # (Manual) Monocytes # (Manual) Eosinophils # (Manual) Basophils # (Manual) PT INR D-Dimer ABG pH POC ABG pCO2 POC ABG pO2 ABG pO2 ABG HCO3 ABG O2 Saturation ABG Base Excess ABG Hemoglobin ABG Oxyhemoglobin ABG Potassium ABG Glucose Oxyhemoglobin Carboxyhemoglobin Sodium Potassium Chloride Carbon Dioxide BUN Creatinine Glucose POC Glucose 147 H 114 H 134 H Calcium Ferritin Total Bilirubin Alkaline Phosphatase Lactate Dehydrogenase Troponin T C-Reactive Protein Total Protein Albumin Prealbumin LDL Cholesterol Direct Arterial Blood Glucose Arterial Blood Ionized Calcium Urine WBC (Auto) 03/06/20 03/06/20 03/06/20 04:34 05:53 06:08 WBC 25.4 H RBC Hgb 10.5 L Hct 32.7 L MCV MCH 27 L RDW 15.3 H Plt Count 634 H Lymph % (Auto) [place] # (Auto) Seg Neutrophils % Seg Neuts % (Manual) 88.0 H Lymphocytes % (Manual) 2.0 L Monocytes % (Manual) 8.0 H Basophils % (Manual) Seg Neutrophils # Seg Neutrophils # Man 22.4 H Lymphocytes # (Manual) 0.5 L Monocytes # (Manual) 2.0 H Eosinophils # (Manual) Basophils # (Manual) PT INR D-Dimer ABG pH POC ABG pCO2 POC ABG pO2 ABG pO2 ABG HCO3 37.9 H ABG O2 Saturation ABG Base Excess 11.4 H ABG Hemoglobin 10.6 L ABG Oxyhemoglobin ABG Potassium ABG Glucose Oxyhemoglobin 94.7 L Carboxyhemoglobin Sodium Potassium Chloride Carbon Dioxide BUN Creatinine Glucose POC Glucose 135 H Calcium Ferritin Total Bilirubin Alkaline Phosphatase Lactate Dehydrogenase Troponin T C-Reactive Protein Total Protein Albumin Prealbumin LDL Cholesterol Direct Arterial Blood Glucose Arterial Blood Ionized Calcium Urine WBC (Auto) 03/06/20 03/06/20 03/06/20 06:08 12:19 19:10 WBC RBC Hgb Hct MCV MCH RDW Plt Count Lymph % (Auto) [place] # (Auto) Seg Neutrophils % Seg Neuts % (Manual) Lymphocytes % (Manual) Monocytes % (Manual) Basophils % (Manual) Seg Neutrophils # Seg Neutrophils # Man Lymphocytes # (Manual) Monocytes # (Manual) Eosinophils # (Manual) Basophils # (Manual) PT INR D-Dimer ABG pH POC ABG pCO2 POC ABG pO2 ABG pO2 ABG HCO3 ABG O2 Saturation ABG Base Excess ABG Hemoglobin ABG Oxyhemoglobin ABG Potassium ABG Glucose Oxyhemoglobin Carboxyhemoglobin Sodium 150 H D Potassium Chloride Carbon Dioxide 39 H D BUN 23 H Creatinine < 0.2 L Glucose 144 H POC Glucose 169 H 152 H Calcium Ferritin Total Bilirubin Alkaline Phosphatase Lactate Dehydrogenase Troponin T C-Reactive Protein Total Protein Albumin 3.3 L Prealbumin LDL Cholesterol Direct Arterial Blood Glucose Arterial Blood Ionized Calcium Urine WBC (Auto) 03/06/20 03/07/20 03/07/20 23:58 04:25 04:25 WBC 22.1 H RBC Hgb 10.9 L Hct 32.9 L MCV MCH RDW 15.5 H Plt Count 739 H Lymph % (Auto) 7.8 L [place] # (Auto) 1.3 H Seg Neutrophils % 85.5 H Seg Neuts % (Manual) Lymphocytes % (Manual) Monocytes % (Manual) Basophils % (Manual) Seg Neutrophils # 18.9 H Seg Neutrophils # Man Lymphocytes # (Manual) Monocytes # (Manual) Eosinophils # (Manual) Basophils # (Manual) PT INR D-Dimer ABG pH POC ABG pCO2 POC ABG pO2 ABG pO2 ABG HCO3 ABG O2 Saturation ABG Base Excess ABG Hemoglobin ABG Oxyhemoglobin ABG Potassium ABG Glucose Oxyhemoglobin Carboxyhemoglobin Sodium 146 H Potassium Chloride Carbon Dioxide 37 H BUN Creatinine < 0.2 L Glucose 118 H POC Glucose 111 H Calcium Ferritin Total Bilirubin Alkaline Phosphatase Lactate Dehydrogenase Troponin T C-Reactive Protein Total Protein Albumin 3.7 L Prealbumin LDL Cholesterol Direct Arterial Blood Glucose Arterial Blood Ionized Calcium Urine WBC (Auto) 03/07/20 03/07/20 03/07/20 05:20 17:45 23:32 WBC RBC Hgb Hct MCV MCH RDW Plt Count Lymph % (Auto) [place] # (Auto) Seg Neutrophils % Seg Neuts % (Manual) Lymphocytes % (Manual) Monocytes % (Manual) Basophils % (Manual) Seg Neutrophils # Seg Neutrophils # Man Lymphocytes # (Manual) Monocytes # (Manual) Eosinophils # (Manual) Basophils # (Manual) PT INR D-Dimer ABG pH POC ABG pCO2 POC ABG pO2 ABG pO2 ABG HCO3 ABG O2 Saturation ABG Base Excess ABG Hemoglobin ABG Oxyhemoglobin ABG Potassium ABG Glucose Oxyhemoglobin Carboxyhemoglobin Sodium Potassium Chloride Carbon Dioxide BUN Creatinine Glucose POC Glucose 113 H 124 H 210 H Calcium Ferritin Total Bilirubin Alkaline Phosphatase Lactate Dehydrogenase Troponin T C-Reactive Protein Total Protein Albumin Prealbumin LDL Cholesterol Direct Arterial Blood Glucose Arterial Blood Ionized Calcium Urine WBC (Auto) 03/08/20 03/08/20 03/08/20 05:35 06:43 06:43 WBC 28.9 H RBC 3.53 L Hgb 9.7 L Hct 30.3 L MCV MCH RDW 15.6 H Plt Count 578 H Lymph % (Auto) [place] # (Auto) Seg Neutrophils % Seg Neuts % (Manual) 93.0 H Lymphocytes % (Manual) 4.0 L Monocytes % (Manual) Basophils % (Manual) Seg Neutrophils # Seg Neutrophils # Man 26.9 H Lymphocytes # (Manual) Monocytes # (Manual) Eosinophils # (Manual) Basophils # (Manual) PT INR D-Dimer ABG pH POC ABG pCO2 POC ABG pO2 ABG pO2 ABG HCO3 ABG O2 Saturation ABG Base Excess ABG Hemoglobin ABG Oxyhemoglobin ABG Potassium ABG Glucose Oxyhemoglobin Carboxyhemoglobin Sodium 146 H Potassium Chloride Carbon Dioxide 35 H BUN 34 H Creatinine 0.3 L D Glucose 125 H POC Glucose 147 H Calcium Ferritin Total Bilirubin Alkaline Phosphatase Lactate Dehydrogenase Troponin T C-Reactive Protein Total Protein 5.9 L Albumin 3.2 L Prealbumin LDL Cholesterol Direct Arterial Blood Glucose Arterial Blood Ionized Calcium Urine WBC (Auto) 03/08/20 03/08/20 03/08/20 08:57 11:14 12:34 WBC RBC Hgb Hct MCV MCH RDW Plt Count Lymph % (Auto) [place] # (Auto) Seg Neutrophils % Seg Neuts % (Manual) Lymphocytes % (Manual) Monocytes % (Manual) Basophils % (Manual) Seg Neutrophils # Seg Neutrophils # Man Lymphocytes # (Manual) Monocytes # (Manual) Eosinophils # (Manual) Basophils # (Manual) PT INR D-Dimer ABG pH POC ABG pCO2 63.1 H POC ABG pO2 ABG pO2 ABG HCO3 ABG O2 Saturation ABG Base Excess ABG Hemoglobin 10.9 L ABG Oxyhemoglobin ABG Potassium ABG Glucose 176 H Oxyhemoglobin Carboxyhemoglobin Sodium Potassium Chloride Carbon Dioxide BUN Creatinine Glucose POC Glucose 171 H Calcium Ferritin Total Bilirubin Alkaline Phosphatase Lactate Dehydrogenase Troponin T C-Reactive Protein Total Protein Albumin Prealbumin LDL Cholesterol Direct Arterial Blood Glucose 176 H Arterial Blood Ionized Calcium 4.5 L Urine WBC (Auto) 10.0 H 03/08/20 03/08/20 03/09/20 18:02 23:43 05:49 WBC RBC Hgb Hct MCV MCH RDW Plt Count Lymph % (Auto) [place] # (Auto) Seg Neutrophils % Seg Neuts % (Manual) Lymphocytes % (Manual) Monocytes % (Manual) Basophils % (Manual) Seg Neutrophils # Seg Neutrophils # Man Lymphocytes # (Manual) Monocytes # (Manual) Eosinophils # (Manual) Basophils # (Manual) PT INR D-Dimer ABG pH POC ABG pCO2 POC ABG pO2 ABG pO2 ABG HCO3 ABG O2 Saturation ABG Base Excess ABG Hemoglobin ABG Oxyhemoglobin ABG Potassium ABG Glucose Oxyhemoglobin Carboxyhemoglobin Sodium Potassium Chloride Carbon Dioxide BUN Creatinine Glucose POC Glucose 157 H 134 H 163 H Calcium Ferritin Total Bilirubin Alkaline Phosphatase Lactate Dehydrogenase Troponin T C-Reactive Protein Total Protein Albumin Prealbumin LDL Cholesterol Direct Arterial Blood Glucose Arterial Blood Ionized Calcium Urine WBC (Auto) 03/09/20 03/09/20 03/09/20 08:35 08:35 12:11 WBC 23.4 H RBC 3.36 L Hgb 9.3 L Hct 28.8 L MCV MCH RDW 15.9 H Plt Count 521 H Lymph % (Auto) [place] # (Auto) Seg Neutrophils % Seg Neuts % (Manual) 87.0 H Lymphocytes % (Manual) 4.0 L Monocytes % (Manual) 9.0 H Basophils % (Manual) Seg Neutrophils # Seg Neutrophils # Man 20.4 H Lymphocytes # (Manual) 0.9 L Monocytes # (Manual) 2.1 H Eosinophils # (Manual) Basophils # (Manual) PT INR D-Dimer ABG pH POC ABG pCO2 POC ABG pO2 ABG pO2 ABG HCO3 ABG O2 Saturation ABG Base Excess ABG Hemoglobin ABG Oxyhemoglobin ABG Potassium ABG Glucose Oxyhemoglobin Carboxyhemoglobin Sodium 147 H Potassium Chloride Carbon Dioxide 37 H BUN 63 H Creatinine Glucose 154 H POC Glucose 128 H Calcium Ferritin Total Bilirubin Alkaline Phosphatase Lactate Dehydrogenase Troponin T C-Reactive Protein Total Protein Albumin Prealbumin LDL Cholesterol Direct Arterial Blood Glucose Arterial Blood Ionized Calcium Urine WBC (Auto) 03/09/20 03/10/20 03/10/20 17:51 00:25 05:41 WBC RBC Hgb Hct MCV MCH RDW Plt Count Lymph % (Auto) [place] # (Auto) Seg Neutrophils % Seg Neuts % (Manual) Lymphocytes % (Manual) Monocytes % (Manual) Basophils % (Manual) Seg Neutrophils # Seg Neutrophils # Man Lymphocytes # (Manual) Monocytes # (Manual) Eosinophils # (Manual) Basophils # (Manual) PT INR D-Dimer ABG pH POC ABG pCO2 POC ABG pO2 ABG pO2 ABG HCO3 ABG O2 Saturation ABG Base Excess ABG Hemoglobin ABG Oxyhemoglobin ABG Potassium ABG Glucose Oxyhemoglobin Carboxyhemoglobin Sodium Potassium Chloride Carbon Dioxide BUN Creatinine Glucose POC Glucose 127 H 128 H 153 H Calcium Ferritin Total Bilirubin Alkaline Phosphatase Lactate Dehydrogenase Troponin T C-Reactive Protein Total Protein Albumin Prealbumin LDL Cholesterol Direct Arterial Blood Glucose Arterial Blood Ionized Calcium Urine WBC (Auto) 03/10/20 03/10/20 03/10/20 06:14 06:14 12:02 WBC 18.3 H RBC 3.45 L Hgb 9.5 L Hct 29.5 L MCV MCH RDW 16.1 H Plt Count 494 H Lymph % (Auto) [place] # (Auto) Seg Neutrophils % Seg Neuts % (Manual) 95.0 H Lymphocytes % (Manual) 1.0 L Monocytes % (Manual) Basophils % (Manual) Seg Neutrophils # Seg Neutrophils # Man 17.4 H Lymphocytes # (Manual) 0.2 L Monocytes # (Manual) Eosinophils # (Manual) Basophils # (Manual) PT INR D-Dimer ABG pH POC ABG pCO2 POC ABG pO2 ABG pO2 ABG HCO3 ABG O2 Saturation ABG Base Excess ABG Hemoglobin ABG Oxyhemoglobin ABG Potassium ABG Glucose Oxyhemoglobin Carboxyhemoglobin Sodium 149 H Potassium Chloride Carbon Dioxide 35 H BUN 34 H Creatinine 0.2 L D Glucose 177 H POC Glucose 151 H Calcium Ferritin Total Bilirubin Alkaline Phosphatase Lactate Dehydrogenase Troponin T C-Reactive Protein Total Protein Albumin Prealbumin LDL Cholesterol Direct Arterial Blood Glucose Arterial Blood Ionized Calcium Urine WBC (Auto) 03/10/20 03/10/20 03/11/20 17:41 23:53 05:02 WBC RBC Hgb Hct MCV MCH RDW Plt Count Lymph % (Auto) [place] # (Auto) Seg Neutrophils % Seg Neuts % (Manual) Lymphocytes % (Manual) Monocytes % (Manual) Basophils % (Manual) Seg Neutrophils # Seg Neutrophils # Man Lymphocytes # (Manual) Monocytes # (Manual) Eosinophils # (Manual) Basophils # (Manual) PT INR D-Dimer ABG pH POC ABG pCO2 POC ABG pO2 ABG pO2 ABG HCO3 ABG O2 Saturation ABG Base Excess ABG Hemoglobin ABG Oxyhemoglobin ABG Potassium ABG Glucose Oxyhemoglobin Carboxyhemoglobin Sodium Potassium Chloride Carbon Dioxide BUN Creatinine Glucose POC Glucose 168 H 142 H 146 H Calcium Ferritin Total Bilirubin Alkaline Phosphatase Lactate Dehydrogenase Troponin T C-Reactive Protein Total Protein Albumin Prealbumin LDL Cholesterol Direct Arterial Blood Glucose Arterial Blood Ionized Calcium Urine WBC (Auto) 03/11/20 03/11/20 03/11/20 11:30 14:01 14:01 WBC 19.7 H RBC 3.04 L Hgb 8.7 L Hct 25.8 L MCV MCH RDW 15.6 H Plt Count Lymph % (Auto) [place] # (Auto) Seg Neutrophils % Seg Neuts % (Manual) Lymphocytes % (Manual) Monocytes % (Manual) Basophils % (Manual) Seg Neutrophils # Seg Neutrophils # Man Lymphocytes # (Manual) Monocytes # (Manual) Eosinophils # (Manual) Basophils # (Manual) PT INR D-Dimer ABG pH POC ABG pCO2 POC ABG pO2 ABG pO2 ABG HCO3 ABG O2 Saturation ABG Base Excess ABG Hemoglobin ABG Oxyhemoglobin ABG Potassium ABG Glucose Oxyhemoglobin Carboxyhemoglobin Sodium 151 H Potassium Chloride Carbon Dioxide 37 H BUN Creatinine < 0.2 L Glucose 171 H POC Glucose 248 H Calcium Ferritin Total Bilirubin Alkaline Phosphatase Lactate Dehydrogenase Troponin T C-Reactive Protein Total Protein Albumin Prealbumin LDL Cholesterol Direct Arterial Blood Glucose Arterial Blood Ionized Calcium Urine WBC (Auto) 03/11/20 03/11/20 03/12/20 17:09 23:52 04:39 WBC 19.9 H RBC 3.16 L Hgb 8.9 L Hct 27.5 L MCV MCH RDW 15.7 H Plt Count Lymph % (Auto) 6.8 L [place] # (Auto) 1.2 H Seg Neutrophils % 86.0 H Seg Neuts % (Manual) Lymphocytes % (Manual) Monocytes % (Manual) Basophils % (Manual) Seg Neutrophils # 17.1 H Seg Neutrophils # Man Lymphocytes # (Manual) Monocytes # (Manual) Eosinophils # (Manual) Basophils # (Manual) PT INR D-Dimer ABG pH POC ABG pCO2 POC ABG pO2 ABG pO2 ABG HCO3 ABG O2 Saturation ABG Base Excess ABG Hemoglobin ABG Oxyhemoglobin ABG Potassium ABG Glucose Oxyhemoglobin Carboxyhemoglobin Sodium Potassium Chloride Carbon Dioxide BUN Creatinine Glucose POC Glucose 124 H 131 H Calcium Ferritin Total Bilirubin Alkaline Phosphatase Lactate Dehydrogenase Troponin T C-Reactive Protein Total Protein Albumin Prealbumin LDL Cholesterol Direct Arterial Blood Glucose Arterial Blood Ionized Calcium Urine WBC (Auto) 03/12/20 03/12/20 03/12/20 04:39 05:28 11:34 WBC RBC Hgb Hct MCV MCH RDW Plt Count Lymph % (Auto) [place] # (Auto) Seg Neutrophils % Seg Neuts % (Manual) Lymphocytes % (Manual) Monocytes % (Manual) Basophils % (Manual) Seg Neutrophils # Seg Neutrophils # Man Lymphocytes # (Manual) Monocytes # (Manual) Eosinophils # (Manual) Basophils # (Manual) PT INR D-Dimer ABG pH POC ABG pCO2 POC ABG pO2 ABG pO2 ABG HCO3 ABG O2 Saturation ABG Base Excess ABG Hemoglobin ABG Oxyhemoglobin ABG Potassium ABG Glucose Oxyhemoglobin Carboxyhemoglobin Sodium 147 H Potassium Chloride Carbon Dioxide 40 H BUN Creatinine < 0.2 L Glucose 175 H POC Glucose 167 H 144 H Calcium Ferritin Total Bilirubin Alkaline Phosphatase Lactate Dehydrogenase Troponin T C-Reactive Protein Total Protein Albumin Prealbumin LDL Cholesterol Direct Arterial Blood Glucose Arterial Blood Ionized Calcium Urine WBC (Auto) 03/12/20 03/12/20 03/13/20 17:32 23:57 05:57 WBC RBC Hgb Hct MCV MCH RDW Plt Count Lymph % (Auto) [place] # (Auto) Seg Neutrophils % Seg Neuts % (Manual) Lymphocytes % (Manual) Monocytes % (Manual) Basophils % (Manual) Seg Neutrophils # Seg Neutrophils # Man Lymphocytes # (Manual) Monocytes # (Manual) Eosinophils # (Manual) Basophils # (Manual) PT INR D-Dimer ABG pH POC ABG pCO2 POC ABG pO2 ABG pO2 ABG HCO3 ABG O2 Saturation ABG Base Excess ABG Hemoglobin ABG Oxyhemoglobin ABG Potassium ABG Glucose Oxyhemoglobin Carboxyhemoglobin Sodium Potassium Chloride Carbon Dioxide BUN Creatinine Glucose POC Glucose 141 H 137 H 161 H Calcium Ferritin Total Bilirubin Alkaline Phosphatase Lactate Dehydrogenase Troponin T C-Reactive Protein Total Protein Albumin Prealbumin LDL Cholesterol Direct Arterial Blood Glucose Arterial Blood Ionized Calcium Urine WBC (Auto) 03/13/20 03/13/20 03/13/20 12:28 14:14 18:39 WBC RBC Hgb Hct MCV MCH RDW Plt Count Lymph % (Auto) [place] # (Auto) Seg Neutrophils % Seg Neuts % (Manual) Lymphocytes % (Manual) Monocytes % (Manual) Basophils % (Manual) Seg Neutrophils # Seg Neutrophils # Man Lymphocytes # (Manual) Monocytes # (Manual) Eosinophils # (Manual) Basophils # (Manual) PT INR D-Dimer ABG pH POC ABG pCO2 POC ABG pO2 ABG pO2 ABG HCO3 ABG O2 Saturation ABG Base Excess ABG Hemoglobin ABG Oxyhemoglobin ABG Potassium ABG Glucose Oxyhemoglobin Carboxyhemoglobin Sodium Potassium Chloride Carbon Dioxide 39 H BUN Creatinine < 0.2 L Glucose 129 H POC Glucose 130 H 125 H Calcium Ferritin Total Bilirubin Alkaline Phosphatase Lactate Dehydrogenase Troponin T C-Reactive Protein Total Protein Albumin Prealbumin LDL Cholesterol Direct Arterial Blood Glucose Arterial Blood Ionized Calcium Urine WBC (Auto) 03/13/20 03/14/20 03/14/20 23:33 05:24 08:07 WBC 16.8 H RBC 2.81 L Hgb 7.9 L Hct 23.9 L MCV MCH RDW 15.9 H Plt Count Lymph % (Auto) [place] # (Auto) Seg Neutrophils % Seg Neuts % (Manual) 84.0 H Lymphocytes % (Manual) 10.0 L Monocytes % (Manual) Basophils % (Manual) Seg Neutrophils # Seg Neutrophils # Man 14.1 H Lymphocytes # (Manual) Monocytes # (Manual) Eosinophils # (Manual) Basophils # (Manual) PT INR D-Dimer ABG pH POC ABG pCO2 POC ABG pO2 ABG pO2 ABG HCO3 ABG O2 Saturation ABG Base Excess ABG Hemoglobin ABG Oxyhemoglobin ABG Potassium ABG Glucose Oxyhemoglobin Carboxyhemoglobin Sodium Potassium Chloride Carbon Dioxide BUN Creatinine Glucose POC Glucose 146 H 125 H Calcium Ferritin Total Bilirubin Alkaline Phosphatase Lactate Dehydrogenase Troponin T C-Reactive Protein Total Protein Albumin Prealbumin LDL Cholesterol Direct Arterial Blood Glucose Arterial Blood Ionized Calcium Urine WBC (Auto) 11/03/14/20 03/14/20 08:07 12:21 18:26 WBC RBC Hgb Hct MCV MCH RDW Plt Count Lymph % (Auto) [place] # (Auto) Seg Neutrophils % Seg Neuts % (Manual) Lymphocytes % (Manual) Monocytes % (Manual) Basophils % (Manual) Seg Neutrophils # Seg Neutrophils # Man Lymphocytes # (Manual) Monocytes # (Manual) Eosinophils # (Manual) Basophils # (Manual) PT INR D-Dimer ABG pH POC ABG pCO2 POC ABG pO2 ABG pO2 ABG HCO3 ABG O2 Saturation ABG Base Excess ABG Hemoglobin ABG Oxyhemoglobin ABG Potassium ABG Glucose Oxyhemoglobin Carboxyhemoglobin Sodium Potassium Chloride 97.0 L Carbon Dioxide 37 H BUN Creatinine < 0.2 L Glucose 129 H POC Glucose 109 H 142 H Calcium 8.3 L Ferritin Total Bilirubin Alkaline Phosphatase Lactate Dehydrogenase Troponin T C-Reactive Protein Total Protein Albumin Prealbumin LDL Cholesterol Direct Arterial Blood Glucose Arterial Blood Ionized Calcium Urine WBC (Auto) 03/14/20 03/15/20 03/15/20 23:57 05:46 08:06 WBC 19.7 H RBC 3.29 L Hgb 9.1 L Hct 28.0 L MCV MCH RDW 15.9 H Plt Count Lymph % (Auto) [place] # (Auto) Seg Neutrophils % Seg Neuts % (Manual) Lymphocytes % (Manual) Monocytes % (Manual) Basophils % (Manual) Seg Neutrophils # Seg Neutrophils # Man Lymphocytes # (Manual) Monocytes # (Manual) Eosinophils # (Manual) Basophils # (Manual) PT INR D-Dimer ABG pH POC ABG pCO2 POC ABG pO2 ABG pO2 ABG HCO3 ABG O2 Saturation ABG Base Excess ABG Hemoglobin ABG Oxyhemoglobin ABG Potassium ABG Glucose Oxyhemoglobin Carboxyhemoglobin Sodium Potassium Chloride Carbon Dioxide BUN Creatinine Glucose POC Glucose 157 H 118 H Calcium Ferritin Total Bilirubin Alkaline Phosphatase Lactate Dehydrogenase Troponin T C-Reactive Protein Total Protein Albumin Prealbumin LDL Cholesterol Direct Arterial Blood Glucose Arterial Blood Ionized Calcium Urine WBC (Auto) 03/15/20 03/15/20 03/15/20 08:06 12:44 18:09 WBC RBC Hgb Hct MCV MCH RDW Plt Count Lymph % (Auto) [place] # (Auto) Seg Neutrophils % Seg Neuts % (Manual) Lymphocytes % (Manual) Monocytes % (Manual) Basophils % (Manual) Seg Neutrophils # Seg Neutrophils # Man Lymphocytes # (Manual) Monocytes # (Manual) Eosinophils # (Manual) Basophils # (Manual) PT INR D-Dimer ABG pH POC ABG pCO2 POC ABG pO2 ABG pO2 ABG HCO3 ABG O2 Saturation ABG Base Excess ABG Hemoglobin ABG Oxyhemoglobin ABG Potassium ABG Glucose Oxyhemoglobin Carboxyhemoglobin Sodium 136 L Potassium Chloride 93.6 L Carbon Dioxide 37 H BUN Creatinine < 0.2 L Glucose 132 H POC Glucose 151 H 164 H Calcium Ferritin Total Bilirubin Alkaline Phosphatase Lactate Dehydrogenase Troponin T C-Reactive Protein Total Protein Albumin Prealbumin LDL Cholesterol Direct Arterial Blood Glucose Arterial Blood Ionized Calcium Urine WBC (Auto) 03/15/20 03/16/20 03/16/20 23:26 05:39 11:58 WBC RBC Hgb Hct MCV MCH RDW Plt Count Lymph % (Auto) [place] # (Auto) Seg Neutrophils % Seg Neuts % (Manual) Lymphocytes % (Manual) Monocytes % (Manual) Basophils % (Manual) Seg Neutrophils # Seg Neutrophils # Man Lymphocytes # (Manual) Monocytes # (Manual) Eosinophils # (Manual) Basophils # (Manual) PT INR D-Dimer ABG pH POC ABG pCO2 POC ABG pO2 ABG pO2 ABG HCO3 ABG O2 Saturation ABG Base Excess ABG Hemoglobin ABG Oxyhemoglobin ABG Potassium ABG Glucose Oxyhemoglobin Carboxyhemoglobin Sodium Potassium Chloride Carbon Dioxide BUN Creatinine Glucose POC Glucose 136 H 116 H 109 H Calcium Ferritin Total Bilirubin Alkaline Phosphatase Lactate Dehydrogenase Troponin T C-Reactive Protein Total Protein Albumin Prealbumin LDL Cholesterol Direct Arterial Blood Glucose Arterial Blood Ionized Calcium Urine WBC (Auto) 03/16/20 03/17/20 03/17/20 23:56 04:40 04:40 WBC 18.0 H RBC 3.33 L Hgb 9.5 L Hct 28.8 L MCV MCH RDW 16.4 H Plt Count 499 H Lymph % (Auto) [place] # (Auto) Seg Neutrophils % Seg Neuts % (Manual) 82.0 H Lymphocytes % (Manual) 8.0 L Monocytes % (Manual) Basophils % (Manual) Seg Neutrophils # Seg Neutrophils # Man 14.8 H Lymphocytes # (Manual) Monocytes # (Manual) 1.3 H Eosinophils # (Manual) Basophils # (Manual) 0.2 H PT INR D-Dimer ABG pH POC ABG pCO2 POC ABG pO2 ABG pO2 ABG HCO3 ABG O2 Saturation ABG Base Excess ABG Hemoglobin ABG Oxyhemoglobin ABG Potassium ABG Glucose Oxyhemoglobin Carboxyhemoglobin Sodium Potassium Chloride 97.7 L Carbon Dioxide 32 H BUN Creatinine < 0.2 L Glucose 114 H POC Glucose 131 H Calcium Ferritin Total Bilirubin Alkaline Phosphatase Lactate Dehydrogenase Troponin T C-Reactive Protein Total Protein Albumin Prealbumin LDL Cholesterol Direct Arterial Blood Glucose Arterial Blood Ionized Calcium Urine WBC (Auto) 03/18/20 03/18/20 03/18/20 00:21 05:21 11:55 WBC RBC Hgb Hct MCV MCH RDW Plt Count Lymph % (Auto) [place] # (Auto) Seg Neutrophils % Seg Neuts % (Manual) Lymphocytes % (Manual) Monocytes % (Manual) Basophils % (Manual) Seg Neutrophils # Seg Neutrophils # Man Lymphocytes # (Manual) Monocytes # (Manual) Eosinophils # (Manual) Basophils # (Manual) PT INR D-Dimer ABG pH POC ABG pCO2 POC ABG pO2 ABG pO2 ABG HCO3 ABG O2 Saturation ABG Base Excess ABG Hemoglobin ABG Oxyhemoglobin ABG Potassium ABG Glucose Oxyhemoglobin Carboxyhemoglobin Sodium Potassium Chloride Carbon Dioxide BUN Creatinine Glucose POC Glucose 124 H 138 H 119 H Calcium Ferritin Total Bilirubin Alkaline Phosphatase Lactate Dehydrogenase Troponin T C-Reactive Protein Total Protein Albumin Prealbumin LDL Cholesterol Direct Arterial Blood Glucose Arterial Blood Ionized Calcium Urine WBC (Auto) 03/18/20 03/18/20 03/19/20 17:03 23:58 05:24 WBC RBC Hgb Hct MCV MCH RDW Plt Count Lymph % (Auto) [place] # (Auto) Seg Neutrophils % Seg Neuts % (Manual) Lymphocytes % (Manual) Monocytes % (Manual) Basophils % (Manual) Seg Neutrophils # Seg Neutrophils # Man Lymphocytes # (Manual) Monocytes # (Manual) Eosinophils # (Manual) Basophils # (Manual) PT INR D-Dimer ABG pH POC ABG pCO2 POC ABG pO2 ABG pO2 ABG HCO3 ABG O2 Saturation ABG Base Excess ABG Hemoglobin ABG Oxyhemoglobin ABG Potassium ABG Glucose Oxyhemoglobin Carboxyhemoglobin Sodium Potassium Chloride Carbon Dioxide BUN Creatinine Glucose POC Glucose 128 H 128 H 115 H Calcium Ferritin Total Bilirubin Alkaline Phosphatase Lactate Dehydrogenase Troponin T C-Reactive Protein Total Protein Albumin Prealbumin LDL Cholesterol Direct Arterial Blood Glucose Arterial Blood Ionized Calcium Urine WBC (Auto) 03/19/20 03/19/20 03/19/20 08:05 08:05 11:56 WBC 16.8 H RBC 3.36 L Hgb 9.4 L Hct 28.8 L MCV MCH RDW 17.4 H Plt Count 567 H Lymph % (Auto) 7.8 L [place] # (Auto) 1.2 H Seg Neutrophils % 83.5 H Seg Neuts % (Manual) Lymphocytes % (Manual) Monocytes % (Manual) Basophils % (Manual) Seg Neutrophils # 14.1 H Seg Neutrophils # Man Lymphocytes # (Manual) Monocytes # (Manual) Eosinophils # (Manual) Basophils # (Manual) PT INR D-Dimer ABG pH POC ABG pCO2 POC ABG pO2 ABG pO2 ABG HCO3 ABG O2 Saturation ABG Base Excess ABG Hemoglobin ABG Oxyhemoglobin ABG Potassium ABG Glucose Oxyhemoglobin Carboxyhemoglobin Sodium Potassium Chloride Carbon Dioxide 36 H BUN Creatinine < 0.2 L Glucose 135 H POC Glucose 128 H Calcium Ferritin Total Bilirubin Alkaline Phosphatase Lactate Dehydrogenase Troponin T C-Reactive Protein Total Protein Albumin Prealbumin LDL Cholesterol Direct Arterial Blood Glucose Arterial Blood Ionized Calcium Urine WBC (Auto) 03/19/20 03/20/20 03/20/20 23:59 05:12 16:52 WBC RBC Hgb Hct MCV MCH RDW Plt Count Lymph % (Auto) [place] # (Auto) Seg Neutrophils % Seg Neuts % (Manual) Lymphocytes % (Manual) Monocytes % (Manual) Basophils % (Manual) Seg Neutrophils # Seg Neutrophils # Man Lymphocytes # (Manual) Monocytes # (Manual) Eosinophils # (Manual) Basophils # (Manual) PT INR D-Dimer ABG pH POC ABG pCO2 POC ABG pO2 ABG pO2 ABG HCO3 ABG O2 Saturation ABG Base Excess ABG Hemoglobin ABG Oxyhemoglobin ABG Potassium ABG Glucose Oxyhemoglobin Carboxyhemoglobin Sodium Potassium Chloride Carbon Dioxide BUN Creatinine Glucose POC Glucose 120 H 131 H 124 H Calcium Ferritin Total Bilirubin Alkaline Phosphatase Lactate Dehydrogenase Troponin T C-Reactive Protein Total Protein Albumin Prealbumin LDL Cholesterol Direct Arterial Blood Glucose Arterial Blood Ionized Calcium Urine WBC (Auto) 03/20/20 03/21/20 03/21/20 23:35 04:50 07:35 WBC 15.2 H RBC 3.39 L Hgb 9.4 L Hct 29.4 L MCV MCH RDW 17.6 H Plt Count 518 H Lymph % (Auto) [place] # (Auto) Seg Neutrophils % Seg Neuts % (Manual) 83.0 H Lymphocytes % (Manual) 10.0 L Monocytes % (Manual) Basophils % (Manual) 2.0 H Seg Neutrophils # Seg Neutrophils # Man 12.6 H Lymphocytes # (Manual) Monocytes # (Manual) Eosinophils # (Manual) Basophils # (Manual) 0.3 H PT INR D-Dimer ABG pH POC ABG pCO2 POC ABG pO2 ABG pO2 ABG HCO3 ABG O2 Saturation ABG Base Excess ABG Hemoglobin ABG Oxyhemoglobin ABG Potassium ABG Glucose Oxyhemoglobin Carboxyhemoglobin Sodium Potassium Chloride Carbon Dioxide BUN Creatinine Glucose POC Glucose 125 H 127 H Calcium Ferritin Total Bilirubin Alkaline Phosphatase Lactate Dehydrogenase Troponin T C-Reactive Protein Total Protein Albumin Prealbumin LDL Cholesterol Direct Arterial Blood Glucose Arterial Blood Ionized Calcium Urine WBC (Auto) 03/21/20 03/21/20 03/21/20 07:35 11:45 17:22 WBC RBC Hgb Hct MCV MCH RDW Plt Count Lymph % (Auto) [place] # (Auto) Seg Neutrophils % Seg Neuts % (Manual) Lymphocytes % (Manual) Monocytes % (Manual) Basophils % (Manual) Seg Neutrophils # Seg Neutrophils # Man Lymphocytes # (Manual) Monocytes # (Manual) Eosinophils # (Manual) Basophils # (Manual) PT INR D-Dimer ABG pH POC ABG pCO2 POC ABG pO2 ABG pO2 ABG HCO3 ABG O2 Saturation ABG Base Excess ABG Hemoglobin ABG Oxyhemoglobin ABG Potassium ABG Glucose Oxyhemoglobin Carboxyhemoglobin Sodium 136 L Potassium Chloride 97.7 L Carbon Dioxide 32 H BUN Creatinine < 0.2 L Glucose 103 H POC Glucose 126 H 120 H Calcium Ferritin Total Bilirubin Alkaline Phosphatase Lactate Dehydrogenase Troponin T C-Reactive Protein Total Protein Albumin Prealbumin LDL Cholesterol Direct Arterial Blood Glucose Arterial Blood Ionized Calcium Urine WBC (Auto) 03/22/20 03/22/20 03/22/20 05:09 06:34 06:34 WBC 17.5 H RBC 3.52 L Hgb 10.0 L Hct 30.7 L MCV MCH RDW 17.5 H Plt Count 499 H Lymph % (Auto) [place] # (Auto) Seg Neutrophils % Seg Neuts % (Manual) 80.0 H Lymphocytes % (Manual) 10.0 L Monocytes % (Manual) Basophils % (Manual) Seg Neutrophils # Seg Neutrophils # Man 14.0 H Lymphocytes # (Manual) Monocytes # (Manual) Eosinophils # (Manual) Basophils # (Manual) PT INR D-Dimer ABG pH POC ABG pCO2 POC ABG pO2 ABG pO2 ABG HCO3 ABG O2 Saturation ABG Base Excess ABG Hemoglobin ABG Oxyhemoglobin ABG Potassium ABG Glucose Oxyhemoglobin Carboxyhemoglobin Sodium Potassium Chloride 96.6 L Carbon Dioxide 38 H BUN Creatinine < 0.2 L Glucose 139 H POC Glucose 125 H Calcium Ferritin Total Bilirubin Alkaline Phosphatase Lactate Dehydrogenase Troponin T C-Reactive Protein Total Protein Albumin Prealbumin LDL Cholesterol Direct Arterial Blood Glucose Arterial Blood Ionized Calcium Urine WBC (Auto) 03/22/20 03/22/20 03/22/20 11:45 18:00 23:32 WBC RBC Hgb Hct MCV MCH RDW Plt Count Lymph % (Auto) [place] # (Auto) Seg Neutrophils % Seg Neuts % (Manual) Lymphocytes % (Manual) Monocytes % (Manual) Basophils % (Manual) Seg Neutrophils # Seg Neutrophils # Man Lymphocytes # (Manual) Monocytes # (Manual) Eosinophils # (Manual) Basophils # (Manual) PT INR D-Dimer ABG pH POC ABG pCO2 POC ABG pO2 ABG pO2 ABG HCO3 ABG O2 Saturation ABG Base Excess ABG Hemoglobin ABG Oxyhemoglobin ABG Potassium ABG Glucose Oxyhemoglobin Carboxyhemoglobin Sodium Potassium Chloride Carbon Dioxide BUN Creatinine Glucose POC Glucose 135 H 133 H Calcium Ferritin Total Bilirubin Alkaline Phosphatase Lactate Dehydrogenase Troponin T 0.113 H* C-Reactive Protein Total Protein Albumin Prealbumin LDL Cholesterol Direct Arterial Blood Glucose Arterial Blood Ionized Calcium Urine WBC (Auto) 03/23/20 03/23/20 03/23/20 01:47 06:21 07:57 WBC RBC Hgb Hct MCV MCH RDW Plt Count Lymph % (Auto) [place] # (Auto) Seg Neutrophils % Seg Neuts % (Manual) Lymphocytes % (Manual) Monocytes % (Manual) Basophils % (Manual) Seg Neutrophils # Seg Neutrophils # Man Lymphocytes # (Manual) Monocytes # (Manual) Eosinophils # (Manual) Basophils # (Manual) PT INR D-Dimer ABG pH POC ABG pCO2 POC ABG pO2 ABG pO2 ABG HCO3 ABG O2 Saturation ABG Base Excess ABG Hemoglobin ABG Oxyhemoglobin ABG Potassium ABG Glucose Oxyhemoglobin Carboxyhemoglobin Sodium Potassium Chloride Carbon Dioxide BUN Creatinine Glucose POC Glucose 130 H Calcium Ferritin Total Bilirubin Alkaline Phosphatase Lactate Dehydrogenase Troponin T 0.143 H* D 0.105 H* D C-Reactive Protein Total Protein Albumin Prealbumin LDL Cholesterol Direct Arterial Blood Glucose Arterial Blood Ionized Calcium Urine WBC (Auto) 03/23/20 03/24/20 03/24/20 12:02 05:33 07:15 WBC 18.0 H RBC Hgb 11.0 L Hct 34.0 L MCV MCH RDW 17.4 H Plt Count 520 H Lymph % (Auto) [place] # (Auto) Seg Neutrophils % Seg Neuts % (Manual) 88.0 H Lymphocytes % (Manual) 7.0 L Monocytes % (Manual) Basophils % (Manual) Seg Neutrophils # Seg Neutrophils # Man 15.8 H Lymphocytes # (Manual) Monocytes # (Manual) Eosinophils # (Manual) Basophils # (Manual) PT INR D-Dimer ABG pH POC ABG pCO2 POC ABG pO2 ABG pO2 ABG HCO3 ABG O2 Saturation ABG Base Excess ABG Hemoglobin ABG Oxyhemoglobin ABG Potassium ABG Glucose Oxyhemoglobin Carboxyhemoglobin Sodium Potassium Chloride Carbon Dioxide BUN Creatinine Glucose POC Glucose 137 H 112 H Calcium Ferritin Total Bilirubin Alkaline Phosphatase Lactate Dehydrogenase Troponin T C-Reactive Protein Total Protein Albumin Prealbumin LDL Cholesterol Direct Arterial Blood Glucose Arterial Blood Ionized Calcium Urine WBC (Auto) 03/24/20 03/24/20 03/24/20 07:15 11:22 23:30 WBC RBC Hgb Hct MCV MCH RDW Plt Count Lymph % (Auto) [place] # (Auto) Seg Neutrophils % Seg Neuts % (Manual) Lymphocytes % (Manual) Monocytes % (Manual) Basophils % (Manual) Seg Neutrophils # Seg Neutrophils # Man Lymphocytes # (Manual) Monocytes # (Manual) Eosinophils # (Manual) Basophils # (Manual) PT INR D-Dimer ABG pH POC ABG pCO2 POC ABG pO2 ABG pO2 ABG HCO3 ABG O2 Saturation ABG Base Excess ABG Hemoglobin ABG Oxyhemoglobin ABG Potassium ABG Glucose Oxyhemoglobin Carboxyhemoglobin Sodium Potassium Chloride 96.6 L Carbon Dioxide 38 H BUN Creatinine < 0.2 L Glucose 141 H POC Glucose 130 H 120 H Calcium Ferritin Total Bilirubin Alkaline Phosphatase Lactate Dehydrogenase Troponin T C-Reactive Protein Total Protein Albumin Prealbumin LDL Cholesterol Direct Arterial Blood Glucose Arterial Blood Ionized Calcium Urine WBC (Auto) 03/25/20 05:48 WBC RBC Hgb Hct MCV MCH RDW Plt Count Lymph % (Auto) [place] # (Auto) Seg Neutrophils % Seg Neuts % (Manual) Lymphocytes % (Manual) Monocytes % (Manual) Basophils % (Manual) Seg Neutrophils # Seg Neutrophils # Man Lymphocytes # (Manual) Monocytes # (Manual) Eosinophils # (Manual) Basophils # (Manual) PT INR D-Dimer ABG pH POC ABG pCO2 POC ABG pO2 ABG pO2 ABG HCO3 ABG O2 Saturation ABG Base Excess ABG Hemoglobin ABG Oxyhemoglobin ABG Potassium ABG Glucose Oxyhemoglobin Carboxyhemoglobin Sodium Potassium Chloride Carbon Dioxide BUN Creatinine Glucose POC Glucose 124 H Calcium Ferritin Total Bilirubin Alkaline Phosphatase Lactate Dehydrogenase Troponin T C-Reactive Protein Total Protein Albumin Prealbumin LDL Cholesterol Direct Arterial Blood Glucose Arterial Blood Ionized Calcium Urine WBC (Auto) Allied health notes reviewed: RT
[2020-03-26] MEDS: ENOXAPARIN 40 MG/0.4 ML INJ SUB-Q SCH ×2 (00:49→21:27)
[2020-03-26] MEDS: METOPROLOL TARTRATE 25 MG TAB PO SCH ×3 (00:51→21:26)
[2020-03-26] MEDS: DOCUSATE SODIUM 100 MG/10 ML ORAL LIQD PO SCH ×2 (00:51→10:06)
[2020-03-26] MEDS: ZOLPIDEM 5 MG TAB PO PRN ×2 (00:51→21:26)
[2020-03-26] MEDS: MORPHINE 2 MG/1 ML INJ IV PRN ×3 (00:51→21:24)
[2020-03-26] MEDS: POLYETHYLENE GLYCOL 3350 17 GM POWDER PO SCH (00:52)
[2020-03-26 09:58] LABS: Basophils % (Auto) 0.2 % (0.0-1.8); Eosinophils # (Auto) 0.1 K/mm3 (0.0-0.4); Eosinophils % (Auto) 0.4 % (0.0-4.3); Hematocrit 33.5 % (35.5-45.6); Hemoglobin 10.7 gm/dl (11.8-15.2); Lymphocytes # (Auto) 1.1 K/mm3 (1.2-5.4); Lymphocytes % (Auto) 5.7 % (13.4-35.0); Mean Corpuscular HGB Conc 32 % (32-34); Mean Corpuscular Volume 85 fl (84-94); Monocytes # (Auto) 1.2 K/mm3 (0.0-0.8); Platelet Count 480 K/mm3 (140-440); Red Blood Count 3.93 M/mm3 (3.65-5.03); Red Cell Distribution Width 17.1 % (13.2-15.2)
[2020-03-26] MEDS: TAMSULOSIN 0.4 MG CAP PO SCH (10:06)
[2020-03-26] MEDS: GLYCOPYRROLATE 1 MG TAB PO SCH ×3 (10:06→20:25)
[2020-03-26] MEDS: LANSOPRAZOLE 30 MG SOLUTAB FEEDTUBE SCH (10:07)
[2020-03-26 10:18] LABS: Blood Urea Nitrogen 15 mg/dL (9-20); Calcium 9.1 mg/dL (8.4-10.2); Hemolysis Index 0
[2020-03-26 10:19] LABS: BUN/Creatinine Ratio 75
--- NOTE | 2020-03-26 10:31 | Progress Note ---
Assessment and Plan Assessment and plan: --Acute hypoxic hypercapnic respiratory failure; Intubated on mechanical ventilation. Etiology secondary to sepsis, ALS, multifocal pneumonia (Covid negative). --ALS --Elevated D-dimers; CTA chest, lower extremity venous Doppler both are negative Lovenox DVT prophylaxis --Bilateral pneumonia; probably community-acquired Versus atypical, empiric antibiotics Rocephin and Zithromax Cultures, check pro calcitonin --Sepsis secondary to pneumonia Leukocytosis, tachycardia, pneumonia on chest x-ray --Elevated troponin; Serial cardiac enzymes, serial EKGs Echocardiogram, cardiology consult if needed --Hypokalemia; replaced with KCl Monitor levels --Hyponatremia; IV fluids Closely monitor electrolytes --DVT prophylaxis; Lovenox Admit to ICU for close observation 02/25/2020. CTA of the chest reveals no PE but does illustrate the bilateral pneumonia. Doppler ultrasound also negative for DVT. Blood cultures are pending. Await COVID-19 testing. Patient currently requiring BiPAP IPAP 24/E PAP 6 with FiO2 of 25%. Continue O2 and BiPAP as clinically indicated. ID and pulmonary consulted. 02/26/2020. Blood cultures are negative x48 hours and Covid testing negative as well. Continue antibiotics per ID recommendations for community-acquired bilateral pneumonia. Cardiology consultation for elevated troponin. Check echocardiogram. 02/27/2020. Events of yesterday noted with asystole following V. fib arrest. Patient currently on AC mode rate 20, tidal volume 400, FiO2 50% and a PEEP of 6. Follow-up echocardiogram for elevated troponin. Cardiology suspects NSTEMI Type 2 in the setting of acute resp failure. Chest CTA and BLE Dopplers neg. we will discontinue Decadron given the Covid PCR is negative. 02/28/2020. I spoke with the sister Felisa Eli who is the power of title attorney regarding advanced directives and she instructed me that she would like to continue with aggressive care at this time. I informed her of the guarded prognosis and high mortality/morbidity and she voiced understanding. Patient currently with AC mode ventilation rate 18, tidal volume 400, FiO2 40% and a PEEP of 6. Continue antibiotics for pneumonia. ID previously consulted. Also consult neurology with regards to ALS. 02/29/2020; patient is intubated and on CPAP patient is alert and oriented. Patient has ALS. Dr. Álvarez spoke with his sister and she wants aggressive care. Continue antibiotics for pneumonia. Neurology consulted for ALS. Prognosis poor 03/01/2020; patient is intubated and on CPAP, patient is alert and oriented. I spoke with his 2 sisters about the management plan. 03/02/2020; patient is intubated and on CPAP. Patient was alert and oriented. I spoke with Dr. mohr and he thinks patient may need mechanical ventilation, likely his disease progressed. Dr. Flowers did debridement this morning. 03/03/2020; patient is intubated and on CPAP, patient was on trilogy and BiPAP at home. Patient has ALS. on spontaneous breathing trial. Patient is alert and oriented but quadriplegic. Patient has severe bilateral pneumonia and is on cefepime and Vanco, ID is following. Patient has sacral decubitus ulcer and debridement was done by Dr. Flowers and there is no osteomyelitis. 03/05. Patient still on broad-spectrum antibiotics. Status post sacral de cubitus ulcer debridements-no osteomyelitis. Patient is on AC 25/400/30% PEEP 5. No blood gas results today. 03/06. Plan for tracheostomy by surgery. Still remains intubated. Labs reviewed-sodium 150. Started on free water 200 every 8hr. trend sodium. 03/07: s/p trach placement today, patient placed back on mechanical ventilation with trach. Plan to resume tube feeding with NG tube. Continue to monitor vitals, monitor BMP. 03/08: Patient noted to have distended abdomen with low urinary output. Obtain bladder scan rule out urine retention, UA and urine culture, continue to follow clinically. 03/09: Patient noted to have low blood pressure with SBP as low as 70s. Ordered for 500 mils normal saline bolus. CT abdomen showed bladder outlet obstruction, urology consulted. 03/10: placed on drake by urology o/n, improved urine outpt. cont to monitor BMP. resuded TF - cont free water with TF. wean off from vent as tolerated. 03/11: Vitals stable. cont TF, wean off from vent as tolerated. start on 1/2 NS for hypernatremia - follow BMP 03/12: wean off vent as tolerated, plan for speech eval, cont Tf for now, cont iv fluid 03/13: unable to wean off from vent, unable to do speech therapy eval. will need PEG tube, cont supportive care for now, cont NG tube feeding 03/14: consulted GI for PEg placemnet, cont supportive care. remains on vent at night 03/15: Discussed with GI, plan for PEG tube placement possibly tomorrow. Continue supportive care and wean off from vent as tolerated. Hold Lovenox dose tonight. 03/16: family didnot consent for PEG placement yesterday. I spoke with the daughter today and she is now agreeable for PEG tube. I explained the necessity of the procedure with RN to the patient also and he nodded started on tube feeding, for the procedure. will cont supportive care. planned for PEG tube placement tomorrow. 03/17: s/p PEG placement today, patient tolerated well, cont supportive care 03/18: Started on tube feeding with new PEG tube, continue to wean off vent as tolerated 03/19: cont to monitor with supportive care, wean off vent as tolerated 03/20: Continue to wean off vent as tolerated -but failing weaning trial. Still requiring vent support at night. Currently on PEG tube for tube feed. 03/21. Pt with PSV trials with FiO@ 30%, PEEP 6, PS 10. Currently on PEG tube for tube feed. 03/22/2020. Continue PSV trials per pulmonary. Continue bronchodilators. Patient tolerating tube feedings. Continue Robinul for secretion control. 03/23/2020. Continue PSV trials per pulmonary. Continue bronchodilators. Continue Scopolamine and Robinul for secretion control. Trach care/airway management. Mobility protocols for pressure ulcer prophylaxis. LTAC evaluation per case management 03/24/2020. Continue PSV trials with current settings pressure support 10, PEEP 6 and FiO2 30%. Continue bronchodilators/nebulizer. Continue Scopolamine and Robinul for secretion control. Trach care/airway management. Mobility protocols for pressure ulcer prophylaxis. LTAC evaluation per case management 03/25/2020. Pulmonary to proceed with T-piece trials today. Continue bronchodilators/nebulizer. Continue Scopolamine and Robinul for secretion control. Trach care/airway management. Mobility protocols for pressure ulcer prophylaxis. 03/26/2020. Patient currently with PSV 10/6 at FiO2 of 30%. Continue weaning and T-piece trials per protocol. Continue bronchodilators/nebulizer. Continue Scopolamine and Robinul for secretion control. Trach care/airway management. Mobility protocols for pressure ulcer prophylaxis. Continue tube feeding with aspiration precautions. The high probability of a clinically significant, sudden or life threatening deterioration of the [cardiac and respiratory] system(s) required my full and direct attention, intervention and personal management. The aggregate critical c are time was [32] minutes. This time is in addition to time spent performing reported procedures but includes the following: [x] Data Review and interpretation [x] Patient assessment and monitoring of vital signs [x] Documentation [x] Medication orders and management History Interval history: 59-year-old male patient with significant past medical history of ALS, presented to ED with worsening shortness of breath since the morning [employer]OR[employer] ELECTROPLATING. Patient was on a trilogy machine for breathing 18/11. EMS arrived, patient had O2 sats in the 80s. EMS attempted to place patient on their CPAP machine, however patient did not tolerate. Patient was admitted to the ICU with diagnosis of acute hypoxic respiratory failure and placed on BiPAP. Patient initially tolerated but later deteriorated with respiratory status. Therefore, patient was intubated on 02/26/2020 at 1500. Patient now on mechanical ventilation in the ICU. Hospitalist Physical - Constitutional Vitals: Temp Pulse Resp BP Pulse Ox 98.6 F 103 H 16 122/75 99 03/26/20 08:00 03/26/20 10:06 03/26/20 08:42 03/26/20 10:06 03/26/20 08:42 General appearance: Present: mild distress, other (Intubated on mechanical ventilation) - EENT Eyes: Present: PERRL, EOM intact ENT: hearing intact, clear oral mucosa, dentition normal - Neck Neck: Present: supple, normal ROM - Respiratory Respiratory effort: normal Respiratory: bilateral: CTA - Cardiovascular Rhythm: regular Heart Sounds: Present: S1 & S2. Absent: gallop, rub - Extremities Extremities: no ischemia, No edema, Full ROM - Abdominal General gastrointestinal: soft, non-tender, non-distended, normal bowel sounds - Integumentary Integumentary: Present: clear, warm, dry - Neurologic Neurologic: CNII-XII intact, moves all extremities HEART Score - HEART Score Troponin: Troponin T 0.105 ng/mL (0.00-0.029) H* D 03/23/20 07:57 Results - Labs CBC & Chem 7: 03/26/20 08:49 03/26/20 08:49 Labs: Laboratory Last Values WBC 19.7 K/mm3 (4.5-11.0) H 03/26/20 08:49 RBC 3.93 M/mm3 (3.65-5.03) 03/26/20 08:49 Hgb 10.7 gm/dl (11.8-15.2) L 03/26/20 08:49 Hct 33.5 % (35.5-45.6) L 03/26/20 08:49 MCV 85 fl (84-94) 03/26/20 08:49 MCH 27 pg (28-32) L 03/26/20 08:49 MCHC 32 % (32-34) 03/26/20 08:49 RDW 17.1 % (13.2-15.2) H 03/26/20 08:49 Plt Count 480 K/mm3 (140-440) H 03/26/20 08:49 Lymph % (Auto) 5.7 % (13.4-35.0) L 03/26/20 08:49 [place] % (Auto) 6.0 % (0.0-7.3) 03/26/20 08:49 Eos % (Auto) 0.4 % (0.0-4.3) 03/26/20 08:49 Baso % (Auto) 0.2 % (0.0-1.8) 03/26/20 08:49 Lymph # (Auto) 1.1 K/mm3 (1.2-5.4) L 03/26/20 08:49 [place] # (Auto) 1.2 K/mm3 (0.0-0.8) H 03/26/20 08:49 Eos # (Auto) 0.1 K/mm3 (0.0-0.4) 03/26/20 08:49 Baso # (Auto) 0.0 K/mm3 (0.0-0.1) 03/26/20 08:49 Add Manual Diff Complete 03/24/20 07:15 Total Counted 100 03/24/20 07:15 Seg Neutrophils % 87.7 % (40.0-70.0) H 03/26/20 08:49 Seg Neuts % (Manual) 88.0 % (40.0-70.0) H 03/24/20 07:15 Band Neutrophils % 0 % 03/24/20 07:15 Lymphocytes % (Manual) 7.0 % (13.4-35.0) L 03/24/20 07:15 Reactive Lymphs % (Man) 0 % 03/24/20 07:15 Monocytes % (Manual) 1.0 % (0.0-7.3) 03/24/20 07:15 Eosinophils % (Manual) 2.0 % (0.0-4.3) 03/24/20 07:15 Basophils % (Manual) 0 % (0.0-1.8) 03/24/20 07:15 Metamyelocytes % 1.0 % 03/24/20 07:15 Myelocytes % 1.0 % 03/24/20 07:15 Promyelocytes % 0 % 03/24/20 07:15 Blast Cells % 0 % 03/24/20 07:15 Nucleated RBC % Not Reportable 03/24/20 07:15 Seg Neutrophils # 17.2 K/mm3 (1.8-7.7) H 03/26/20 08:49 Seg Neutrophils # Man 15.8 K/mm3 (1.8-7.7) H 03/24/20 07:15 Band Neutrophils # 0.0 K/mm3 03/24/20 07:15 Lymphocytes # (Manual) 1.3 K/mm3 (1.2-5.4) 03/24/20 07:15 Abs React Lymphs (Man) 0.0 K/mm3 03/24/20 07:15 Monocytes # (Manual) 0.2 K/mm3 (0.0-0.8) 03/24/20 07:15 Eosinophils # (Manual) 0.4 K/mm3 (0.0-0.4) 03/24/20 07:15 Basophils # (Manual) 0.0 K/mm3 (0.0-0.1) 03/24/20 07:15 Metamyelocytes # 0.2 K/mm3 03/24/20 07:15 Myelocytes # 0.2 K/mm3 03/24/20 07:15 Promyelocytes # 0.0 K/mm3 03/24/20 07:15 Blast Cells # 0.0 K/mm3 03/24/20 07:15 WBC Morphology Not Reportable 03/24/20 07:15 Hypersegmented Neuts Not Reportable 03/24/20 07:15 Hyposegmented Neuts Not Reportable 03/24/20 07:15 Hypogranular Neuts Not Reportable 03/24/20 07:15 Smudge Cells Not Reportable 03/24/20 07:15 Toxic Granulation Not Reportable 03/24/20 07:15 Toxic Vacuolation Not Reportable 03/24/20 07:15 Dohle Bodies Not Reportable 03/24/20 07:15 Pelger-Huet Anomaly Not Reportable 03/24/20 07:15 Robert Rods Not Reportable 03/24/20 07:15 Platelet Estimate Consistent w auto 03/24/20 07:15 Clumped Platelets Not Reportable 03/24/20 07:15 Plt Clumps, EDTA Not Reportable 03/24/20 07:15 Large Platelets Not Reportable 03/24/20 07:15 Giant Platelets Not Reportable 03/24/20 07:15 Platelet Satelliting Not Reportable 03/24/20 07:15 Plt Morphology Comment Not Reportable 03/24/20 07:15 RBC Morphology Not Reportable 03/24/20 07:15 Dimorphic RBCs Not Reportable 03/24/20 07:15 Polychromasia Few 03/24/20 07:15 Hypochromasia Not Reportable 03/24/20 07:15 Poikilocytosis Not Reportable 03/24/20 07:15 Anisocytosis Few 03/24/20 07:15 Microcytosis Not Reportable 03/24/20 07:15 Macrocytosis Not Reportable 03/24/20 07:15 Spherocytes Not Reportable 03/24/20 07:15 Pappenheimer Bodies Not Reportable 03/24/20 07:15 Sickle Cells Not Reportable 03/24/20 07:15 Target Cells Not Reportable 03/24/20 07:15 Tear Drop Cells Not Reportable 03/24/20 07:15 Ovalocytes Not Reportable 03/24/20 07:15 Stomatocytes Few 03/17/20 04:40 Helmet Cells Not Reportable 03/24/20 07:15 Gregory-Boaz Bodies Not Reportable 03/24/20 07:15 [place] Rings Not Reportable 03/24/20 07:15 Hoffman Cells Not Reportable 03/24/20 07:15 Bite Cells Not Reportable 03/24/20 07:15 Crenated Cell Not Reportable 03/24/20 07:15 Elliptocytes Not Reportable 03/24/20 07:15 Acanthocytes (Spur) Not Reportable 03/24/20 07:15 Rouleaux Not Reportable 03/24/20 07:15 Hemoglobin C Crystals Not Reportable 03/24/20 07:15 Schistocytes Not Reportable 03/24/20 07:15 Malaria parasites Not Reportable 03/24/20 07:15 Colton Bodies Not Reportable 03/24/20 07:15 Hem Pathologist Commnt No 03/24/20 07:15 PT 15.6 Sec. (12.2-14.9) H 02/24/20 09:19 INR 1.21 (0.87-1.13) H 02/24/20 09:19 APTT 25.4 Sec. (24.2-36.6) 02/24/20 09:19 D-Dimer 1311.96 ng/mlDDU (0-234) H 02/24/20 09:19 ABG pH 7.371 (7.320-7.450) 03/08/20 12:34 POC ABG pCO2 63.1 mmHg (32.0-48.0) H 03/08/20 12:34 ABG pCO2 60.1 mm Hg 03/06/20 04:34 POC ABG pO2 90.5 mmHg (83-108) 03/08/20 12:34 ABG pO2 88.6 mm Hg (80.0-90.0) 03/06/20 04:34 POC ABG HCO3 35.7 03/08/20 12:34 ABG HCO3 37.9 mmol/L (20.0-26.0) H 03/06/20 04:34 ABG O2 Saturation 97.0 % (95.0-99.0) 03/06/20 04:34 ABG O2 Content 14.3 (0.0-44) 03/06/20 04:34 POC ABG Base Excess 8.7 03/08/20 12:34 ABG Base Excess 11.4 mmol/L (-2.0-3.0) H 03/06/20 04:34 ABG Hemoglobin 10.9 (12.0-17.5) L 03/08/20 12:34 ABG Oxyhemoglobin 95.9 (94-98) 03/08/20 12:34 ABG Carboxyhemoglobin 1.7 % (0.0-5.0) 03/06/20 04:34 ABG Methemoglobin 0.3 (0.0-1.5) 03/08/20 12:34 ABG Sodium 143.6 mmol/L (136.0-145.0) 03/08/20 12:34 ABG Potassium 3.8 mmol/L (3.40-4.50) 03/08/20 12:34 ABG Chloride 102.0 mmol/L (98-107) 03/08/20 12:34 ABG Glucose 176 mg/dL (65-95) H 03/08/20 12:34 Oxyhemoglobin 94.7 % (95.0-99.0) L 03/06/20 04:34 Carboxyhemoglobin 0.7 (0.5-1.5) 03/08/20 12:34 FiO2 30 03/08/20 12:34 Sodium 138 mmol/L (137-145) 03/26/20 08:49 Potassium 4.2 mmol/L (3.6-5.0) 03/26/20 08:49 Chloride 97.2 mmol/L (98-107) L 03/26/20 08:49 Carbon Dioxide 36 mmol/L (22-30) H 03/26/20 08:49 Anion Gap 9 mmol/L 03/26/20 08:49 BUN 15 mg/dL (9-20) 03/26/20 08:49 Creatinine < 0.2 mg/dL (0.8-1.3) L 03/26/20 08:49 Estimated GFR > 60 ml/min 03/26/20 08:49 BUN/Creatinine Ratio 75 % 03/26/20 08:49 Glucose 127 mg/dL (75-100) H 03/26/20 08:49 POC Glucose 116 mg/dL (70-105) H 03/26/20 05:21 Lactic Acid 1.00 mmol/L (0.7-2.0) 02/24/20 12:07 Calcium 9.1 mg/dL (8.4-10.2) 03/26/20 08:49 Phosphorus 3.30 mg/dL (2.5-4.5) 03/20/20 14:18 Magnesium 2.00 mg/dL (1.7-2.3) 03/20/20 14:18 Ferritin 1715.0 ng/mL (30.0-300.0) H 02/24/20 10:01 Total Bilirubin 0.60 mg/dL (0.1-1.2) 03/08/20 06:43 AST 34 units/L (5-40) 03/08/20 06:43 ALT 14 units/L (7-56) 03/08/20 06:43 Alkaline Phosphatase 56 units/L (35-129) 03/08/20 06:43 Lactate Dehydrogenase 303 units/L (91-180) H 02/24/20 09:19 Total Creatine Kinase 101 units/L (55-170) 02/24/20 19:35 CK-MB (CK-2) 3.5 ng/mL (0.0-4.0) 02/24/20 19:35 CK-MB (CK-2) Rel Index 3.4 (0-4) 02/24/20 19:35 Troponin T 0.105 ng/mL (0.00-0.029) H* D 03/23/20 07:57 C-Reactive Protein 4.70 mg/dL (0.00-1.30) H 02/28/20 11:05 NT-Pro-B Natriuret Pep 48.30 pg/mL (0-900) 02/24/20 09:19 Total Protein 5.9 g/dL (6.3-8.2) L 03/08/20 06:43 Albumin 3.2 g/dL (3.9-5) L 03/08/20 06:43 Albumin/Globulin Ratio 1.2 % 03/08/20 06:43 Prealbumin 0.090 g/L (0.200-0.400) L 02/28/20 12:54 Triglycerides 34 mg/dL (2-149) 03/22/20 18:00 Cholesterol 104 mg/dL (50-199) 03/22/20 18:00 LDL Cholesterol Direct 54 mg/dL (50-130) 03/22/20 18:00 HDL Cholesterol 40 mg/dL (40-59) 03/22/20 18:00 Cholesterol/HDL Ratio 2.60 % 03/22/20 18:00 Procalcitonin 0.16 ng/mL (<0.15) 03/09/20 08:35 Arterial Blood Glucose 176 mg/dL (65-95) H 03/08/20 12:34 Arterial Blood Ionized Calcium 4.5 mg/dL (4.6-5.3) L 03/08/20 12:34 Urine Color Yellow (Yellow) 03/08/20 08:57 Urine Turbidity Clear (Clear) 03/08/20 08:57 Urine pH 6.0 (5.0-7.0) 03/08/20 08:57 Ur Specific [place] 1.017 (1.003-1.030) 03/08/20 08:57 Urine Protein <15 mg/dl mg/dL (Negative) 03/08/20 08:57 Urine Glucose (UA) Neg mg/dL (Negative) 03/08/20 08:57 Urine Ketones Neg mg/dL (Negative) 03/08/20 08:57 Urine Blood Neg (Negative) 03/08/20 08:57 Urine Nitrite Neg (Negative) 03/08/20 08:57 Urine Bilirubin Neg (Negative) 03/08/20 08:57 Urine Urobilinogen < 2.0 mg/dL (<2.0) 03/08/20 08:57 Ur Leukocyte Esterase Neg (Negative) 03/08/20 08:57 Urine WBC (Auto) 10.0 /HPF (0.0-6.0) H 03/08/20 08:57 Urine RBC (Auto) 13.0 /HPF (0.0-6.0) 03/08/20 08:57 U Epithel Cells (Auto) < 1.0 /HPF (0-13.0) 03/08/20 08:57 Urine Bacteria (Auto) 2+ /HPF (Negative) 03/08/20 08:57 Urine Mucus Few /HPF 03/08/20 08:57 Urine Yeast (Budding) 3+ /HPF 03/08/20 08:57 Vancomycin Trough 8.0 ug/mL (5.0-20.0) 03/04/20 08:59 Coronavirus (PCR) Negative (Negative) 02/25/20 09:03 - Diagnostic Impressions Diagnostic Impressions: Echocardiogram 02/26/20 10:41 Transthoracic Echocardiogram Indication: Elevated Trop BP: 116/75 HR: 85 Conclusions *Global left ventricular wall motion and contractility are within normal limits. *The estimated ejection fraction is 50-55%. *Abnormal left ventricular diastolic filling is observed, consistent with impaired relaxation. *There is no pericardial effusion. Findings Left Ventricle: The left ventricular chamber size is normal. Global left ventricular wall motion and contractility are within normal limits. Global left ventricular systolic function is normal. The estimated ejection fraction is 50-55%. Abnormal left ventricular diastolic filling is observed, consistent with impaired relaxation. Left Atrium: The left atrial chamber size is normal. Right Ventricle: The right ventricular cavity size is normal. Right Atrium: The right atrial cavity size is normal. Aortic Valve: Mild aortic leaflet calcification is visualized. There is no evidence of aortic regurgitation. Mitral Valve: The mitral valve leaflets are mildly thickened. There is no evidence of mitral regurgitation. Tricuspid Valve: The tricuspid valve leaflets are normal. There is trace tricuspid regurgitation. The right ventricular systolic pressure is calculated at 29 mmHg. Pulmonic Valve: The pulmonic valve is not well visualized. Pericardium: There is no pericardial effusion. Aorta: The aorta appears normal. Venous: The inferior vena cava is dilated. There is less than 50% respiratory change in the inferior vena cava dimension. Measurements Chambers 2D Name Value Normal Range IVSd (2D) 0.97 cm (0.6 - 1.1) LVPWd (2D) 0.93 cm (0.6 - 1.1) LVIDd (2D) 4 cm (3.7 - 5.6) LVIDs (2D) 2.73 cm (2 - 3.8) LV FS (2D) 31.67 % - EF Teichholz (2D) 60.23 % - Ao root diameter (2D) 3.51 cm (2 - 3.7) Volumes/Mass Name Value Normal Range LA ESV SP 4CH (A/L) 8.43 ml - LA ESV SP 2CH (A/L) 18.89 ml - LA ESV BP (A/L) 13.02 ml - LA ESV BP (A/L) index 8.8 ml/m2 - LA ESV SP 4CH (MOD) 7.22 ml - LA ESV SP 2CH (MOD) 18.15 ml - LA ESV BP (MOD) 11.47 ml - LA ESV BP (MOD) index 7.75 ml/m2 - Diastolic/Systolic Function Name Value Normal Range MV E-wave Vmax 0.51 m/sec - MV deceleration time 180.22 msec - MV A-wave Vmax 0.62 m/sec - MV E:A ratio 0.82 ratio - Aortic Valve Name Value Normal Range AV Vmax 1.17 m/sec - AV VTI 19.71 cm - AV peak gradient 5.44 mmHg - AV mean gradient 3.38 mmHg - LVOT diameter 2.26 cm - LVOT Vmax 0.89 m/sec - LVOT VTI 13.72 cm - LVOT peak gradient 3.17 mmHg - LVOT mean gradient 1.67 mmHg - SV LVOT 55.03 ml - SHARAD (continuity Vmax) 3.06 cm2 - SHARAD (continuity VTI) 2.79 cm2 - Tricuspid Valve Name Value Normal Range TR Vmax 2.3 m/sec - TR peak gradient 21 mmHg - RAP 8 mmHg - RVSP 29 mmHg - IVC diameter 2.59 cm (1.2 - 2.3) Pulmonic Valve/Qp:Qs Name Value Normal Range PV acceleration time 68.51 msec - Drake/IV: Voiding Method Indwelling Catheter IV Catheter Type [Right Hand] Peripheral IV IV Catheter Type [Left Wrist] Peripheral IV IV Catheter Type [Right Peripheral IV Forearm] IV Catheter Type [Right Triple Lumen Cath Internal Jugular] IV Catheter Type [Left Forearm INT / Saline Lock ] IV Catheter Type [Right Triple Lumen Cath Femoral] IV Catheter Type [Right INT / Saline Lock Antecubital] Active Medications - Current Medications Current Medications: Generic Name Dose Route Start Last Admin Trade Name Gemini PRN Reason Stop Dose Admin Acetaminophen 650 mg 02/24/20 15:13 03/08/20 00:10 Tylenol PO 650 mg Q4H PRN Administration Pain, Mild (1-3) Albuterol 2.5 mg 02/24/20 15:13 Proventil IH Q4HRT PRN Shortness Of Breath Lipase/Protease/Amylase 1 each 02/26/20 11:[address] 10,500 Unit FEEDTUBE PRN PRN For Clogged Feeding Tube Bisacodyl 10 mg 03/12/20 18:00 03/15/20 17:50 Dulcolax [place] 10 mg QDAY PRN Administration Bowel Movement Docusate Sodium 100 mg 03/12/20 22:00 03/26/20 10:06 Colace PO 100 mg BID ALISA Administration Enoxaparin Sodium 40 mg 03/20/20 22:00 03/26/20 00:49 Enoxaparin SUB-Q 40 mg QDAY@2200 ALISA Administration Protocol Glycopyrrolate 2 mg 03/26/20 08:00 03/26/20 10:06 Robinul PO 2 mg TID ALISA Administration Lansoprazole 30 mg 02/28/20 10:00 03/26/20 10:07 Prevacid Solutab FEEDTUBE 30 mg QDAY ALISA Administration Metoprolol Tartrate 12.5 mg 02/24/20 22:00 03/26/20 10:06 Metoprolol PO 12.5 mg BID ALISA Administration Morphine Sulfate 2 mg 02/29/20 16:42 03/26/20 00:51 Morphine IV 2 mg Q4H PRN Administration Pain, Moderate (4-6) Polyethylene Glycol 17 gm 03/12/20 22:00 03/26/20 00:52 Miralax 3350 PO 17 gm QHS LAISA Administration Scopolamine 1 each 03/03/20 14:00 03/24/20 09:01 Transderm-Scop TD 1 each Q3D ALISA Administration Simple Syrup 15 ml 02/26/20 11:16 Simple Syrup FEEDTUBE PRN PRN Hypoglycemia Simple Syrup 30 ml 02/26/20 11:16 Simple Syrup FEEDTUBE PRN PRN Hypoglycemia Sodium Bicarbonate 325 mg 02/26/20 11:16 Sodium Bicarbonate FEEDTUBE PRN PRN For Clogged Feeding Tube Tamsulosin HCl 0.4 mg 03/09/20 18:00 03/26/20 10:06 Flomax PO 0.4 mg QDAY ALISA Administration Zolpidem Tartrate 5 mg 03/24/20 14:53 03/26/20 00:51 Ambien PO 5 mg QHS PRN Administration Sleep Nutrition/Malnutrition Assess - Dietary Evaluation Nutrition/Malnutrition Findings: Nutrition Notes Start: 02/26/20 10 :40 Freq: Status: Active Protocol: Document 03/21/20 13:36 LP (Rec: 03/21/20 13:41 LP [email or web address]) Nutrition Notes Initial or Follow up Reassessment Current Diagnosis Decubitus(Pressure Ulcer), Sepsis,Respiratory Failure Other Pertinent Diagnosis COVID-19 (-), ALS, pneumonia, Hip/buttock PU Current Diet Vital AF 1.2 at 75ml/hr (goal rate) Labs/Tests Na 136 Pertinent Medications Reviewed Height 6 ft Weight 66.4 kg [place] Body Weight (kg) 80.90 BMI 19.8 Weight Status Appropriate Subjective/Other Information Pt continues tolerating TF at goal rate. PEG placed. Percent of energy/protein needs met: 100%/100% Burn Absent Trauma Absent GI Symptoms None Skin Integrity/Comment Pressure Ulcer Stage 2 Current % PO Negligible Minimum of two criteria Yes Body Fat Depletion Mild depletion (non-severe) Muscle Mass Mild Depletion (non-severe) Reduced Sheep Clipper Strength Measurably Reduced (severe) #3 Nutrition Diagnosis Malnutrition Diagnosis Progress(for reassessment Continues documentation) #2 Nutrition Diagnosis Inadequate oral intake Diagnosis Progress(for reassessment Continues documentation) #1 Nutrition Diagnosis Increased nutrient needs ( specify in comment below) Diagnosis Progress(for reassessment Continues documentation) Is patient on ventilator? Yes Is Patient Ambulatory and/or Out of Bed No REE-([facility]-confined to bed) 1825.272 Kcal/Kg value to use for calculation 35 Approximate Energy Requirements Using 2324 kcal/Kg Calculation Used for Recommendations Kcal/kg Additional Notes Protein needs: 80-133 g (1.2-2 g/ kg ABW) Fluid: 1ml/kcal Nutrition Intervention Change Diet Order: Continue TF Nutrition Support: Vital AF 1.2 at 75ml/hr. Flush 200ml q4h For hyponatremia, flush 150 mL q4h Kcal 2,160 Protein (gm) 135 Fluid (mL) 1,460 Add Supplement/Snack (indicate name/kcal Will BID /protein ) Provides kCal: 190 Provides Protein (gm) 5 Goal #1 Meet at least 80% of energy and protein needs via TF Goal #2 Wound healing Anticipated Discharge Needs: Unable to determine at this time Follow-Up By: 03/28/20 Additional Comments Follow for stable TF
--- NOTE | 2020-03-26 16:59 | Progress Note ---
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 He states he wants to go home, however I do not think he understands that going home may require compassionate extubation - continue daytime PSV as tolerated -He is not tolerating ATP trials and may end up vent dependant. -Continue to attempt ATP trials as tolerated - ABG, CXR as clinically indicated - continue Robinul & scopolamine for secretion control - Keep K at 4, Mg at 2 and Phos at 2.5 to optimize respiratory muscle function - wound care per RN/WCN, off loading, frequent turning, mobility per facility protocol - wean supplemental oxygen for target O2 sats > 92% - VAP bundle addressed, aspiration precautions, HOB >40 - continue lung protective strategies - continue bronchodilators with pulmonary hygiene per RT - s/p empiric anti-infectives per ID recs (Rocephin and Zithromax) - enteral nutrition at goal rate as tolerated - accuchecks with glycemic control per SSI (While critically ill target blood glucose of 140-180 mg/dL; avoid hypoglycemia) - avoid nephrotoxins, renal dose all medications - avoid benzodiazepines, reduce the possibility of delirium - prn analgesia per CPOT score - Maintenance of sleep-wake cycle, avoid delirium -Continue stress ulcer and VTE prophylaxis (Famotidine and Enoxaparin) -Reardon in place for urinary retention and sacral decubitus ulcer - PT/OT/ROM exercises - Monitor hemodynamics closely - continue other care per attending / other consultants - discharge planning ongoing concurrently CONDITION: FAIR PROGNOSIS: GUARDED CODE STATUS: FULL CODE Subjective Date of service: 03/26/20 Principal diagnosis: Ac on Ch Hypercapnic & hypoxemic Resp Failure; Severe Sepsis; Jamar PNA; ALS Interval history: Patient is seen today for: Acute on Chronic Hypercapnic & hypoxemic Respiratory Failure; Severe Sepsis with Shock; Bilateral Pneumonia (Possible aspiration); History of ALS on Trilogy; Acute toxic metabolic encephalopathy Seen and examined at bedside; 24hour events reviewed; nursing and respiratory ca re staff consulted; no adverse overnight events reported to me; resting in bed; remains on MVS; s/p trach and PEG Tolerating tube feedings. Tolerating PSV at the bedside No fevers,no vomiting. Slept well last night. Objective Vital Signs - 12hr 03/26/20 03/26/20 03/26/20 05:00 05:16 05:30 Temperature Pulse Rate 91 H 99 H 100 H Respiratory 12 12 13 Rate Blood Pressure 109/62 109/62 113/71 O2 Sat by Pulse 98 99 98 Oximetry O2 Sat by Pulse Oximetry [ Assessment] 03/26/20 03/26/20 03/26/20 05:46 06:00 06:16 Temperature Pulse Rate 93 H 104 H 115 H Respiratory 12 17 18 Rate Blood Pressure 113/71 114/71 114/71 O2 Sat by Pulse 99 99 100 Oximetry O2 Sat by Pulse Oximetry [ Assessment] 03/26/20 03/26/20 03/26/20 06:30 06:46 07:00 Temperature Pulse Rate 103 H 104 H 104 H Respiratory 13 13 14 Rate Blood Pressure 110/68 110/68 108/69 O2 Sat by Pulse 98 99 97 Oximetry O2 Sat by Pulse Oximetry [ Assessment] 03/26/20 03/26/20 03/26/20 07:16 07:30 07:46 Temperature Pulse Rate 106 H 114 H 110 H Respiratory 15 18 17 Rate Blood Pressure 108/69 114/71 114/71 O2 Sat by Pulse 100 99 99 Oximetry O2 Sat by Pulse Oximetry [ Assessment] 03/26/20 03/26/20 03/26/20 08:00 08:16 08:30 Temperature 98.6 F Pulse Rate 99 H 94 H 100 H Respiratory 12 12 12 Rate Blood Pressure 108/63 108/63 112/71 O2 Sat by Pulse 97 98 99 Oximetry O2 Sat by Pulse Oximetry [ Assessment] 03/26/20 03/26/20 03/26/20 08:42 08:46 09:00 Temperature Pulse Rate 113 H 105 H 109 H Respiratory 16 20 21 Rate Blood Pressure 112/71 112/71 122/73 O2 Sat by Pulse 99 99 99 Oximetry O2 Sat by Pulse Oximetry [ Assessment] 03/26/20 03/26/20 03/26/20 09:16 09:30 09:46 Temperature Pulse Rate 104 H 115 H 105 H Respiratory 19 30 H 23 Rate Blood Pressure 122/73 127/79 127/79 O2 Sat by Pulse 99 98 98 Oximetry O2 Sat by Pulse Oximetry [ Assessment] 03/26/20 03/26/20 03/26/20 10:00 10:06 10:16 Temperature Pulse Rate 109 H 103 H 108 H Respiratory 25 H 21 Rate Blood Pressure 122/75 122/75 122/75 O2 Sat by Pulse 98 97 Oximetry O2 Sat by Pulse Oximetry [ Assessment] 03/26/20 03/26/20 03/26/20 10:30 10:46 11:00 Temperature Pulse Rate 108 H 108 H 98 H Respiratory 20 9 L 25 H Rate Blood Pressure 120/72 120/72 124/77 O2 Sat by Pulse 96 Oximetry O2 Sat by Pulse Oximetry [ Assessment] 03/26/20 03/26/20 03/26/20 11:16 11:30 11:46 Temperature Pulse Rate 90 95 H 90 Respiratory 24 21 18 Rate Blood Pressure 124/77 123/87 123/87 O2 Sat by Pulse Oximetry O2 Sat by Pulse Oximetry [ Assessment] 03/26/20 03/26/20 03/26/20 12:00 12:16 12:30 Temperature 98.4 F Pulse Rate 92 H 92 H 96 H Respiratory 22 21 22 Rate Blood Pressure 129/87 123/87 133/91 O2 Sat by Pulse Oximetry O2 Sat by Pulse Oximetry [ Assessment] 03/26/20 03/26/20 03/26/20 12:39 12:41 15:45 Temperature 98.0 F Pulse Rate 94 H Respiratory 15 Rate Blood Pressure 133/91 O2 Sat by Pulse 99 Oximetry O2 Sat by Pulse 99 Oximetry [ Assessment] 03/26/20 16:23 Temperature Pulse Rate 125 H Respiratory 20 Rate Blood Pressure 112/82 O2 Sat by Pulse 98 Oximetry O2 Sat by Pulse Oximetry [ Assessment] Constitutional: no acute distress, other (thin middle aged male with normal respiratory effort at rest on MVS) Eyes: non-icteric ENT: oropharynx moist, other (S/P Tracheostomy) Neck: supple, no lymphadenopathy, no JVD Effort: mildly labored Ascultation: Bilateral: clear, diminished breath sounds, wheezes, rhonchi Percussion: Bilateral: not dull Cardiovascular: regular rate and rhythm, other (S1,S2, no murmurs) Gastrointestinal: normoactive bowel sounds, soft, non-tender, non-distended, other (+ distended but non tender suprapubis) Integumentary: normal, decubitus ulcer (sacral / gluteal) Extremities: no cyanosis, no edema, pulses normal, other (atrophic looking limbs) Neurologic: pupils equal and round, other (motor strength in extremities 1-2/5, awake, alert, mouths words to make needs known) Psychiatric: depressed CBC and BMP: 03/27/20 05:59 03/27/20 05:59 ABG, PT/INR, D-dimer: ABG ABG pH 7.371 (7.320-7.450) 03/08/20 12:34 POC ABG pCO2 63.1 mmHg (32.0-48.0) H 03/08/20 12:34 ABG pCO2 60.1 mm Hg 03/06/20 04:34 POC ABG pO2 90.5 mmHg (83-108) 03/08/20 12:34 ABG pO2 88.6 mm Hg (80.0-90.0) 03/06/20 04:34 POC ABG HCO3 35.7 03/08/20 12:34 ABG O2 Saturation 97.0 % (95.0-99.0) 03/06/20 04:34 PT/INR, D-dimer PT 15.6 Sec. (12.2-14.9) H 02/24/20 09:19 INR 1.21 (0.87-1.13) H 02/24/20 09:19 D-Dimer 1311.96 ng/mlDDU (0-234) H 02/24/20 09:19 Abnormal lab findings: Abnormal Labs 02/24/20 02/24/20 02/24/20 09:19 09:19 09:19 WBC 20.2 H RBC 5.05 H Hgb Hct MCV MCH RDW 15.3 H Plt Count Lymph % (Auto) Lymph # (Auto) [place] # (Auto) Seg Neutrophils % Seg Neuts % (Manual) 86.0 H Lymphocytes % (Manual) 1.0 L Monocytes % (Manual) Basophils % (Manual) Seg Neutrophils # Seg Neutrophils # Man 17.4 H Lymphocytes # (Manual) 0.2 L Monocytes # (Manual) Eosinophils # (Manual) Basophils # (Manual) PT 15.6 H INR 1.21 H D-Dimer 1311.96 H ABG pH POC ABG pCO2 POC ABG pO2 ABG pO2 ABG HCO3 ABG O2 Saturation ABG Base Excess ABG Hemoglobin ABG Oxyhemoglobin ABG Potassium ABG Glucose Oxyhemoglobin Carboxyhemoglobin Sodium 135 L Potassium 3.2 L Chloride 92.2 L Carbon Dioxide BUN 6 L Creatinine < 0.2 L Glucose 124 H POC Glucose Calcium Ferritin Total Bilirubin 2.30 H Alkaline Phosphatase 132 H Lactate Dehydrogenase Troponin T 0.080 H C-Reactive Protein Total Protein Albumin 3.6 L Prealbumin LDL Cholesterol Direct 41 L Arterial Blood Glucose Arterial Blood Ionized Calcium Urine WBC (Auto) 02/24/20 02/24/20 02/24/20 09:19 09:58 10:01 WBC RBC Hgb Hct MCV MCH RDW Plt Count Lymph % (Auto) Lymph # (Auto) [place] # (Auto) Seg Neutrophils % Seg Neuts % (Manual) Lymphocytes % (Manual) Monocytes % (Manual) Basophils % (Manual) Seg Neutrophils # Seg Neutrophils # Man Lymphocytes # (Manual) Monocytes # (Manual) Eosinophils # (Manual) Basophils # (Manual) PT INR D-Dimer ABG pH 7.176 L* POC ABG pCO2 POC ABG pO2 ABG pO2 91.2 H ABG HCO3 ABG O2 Saturation ABG Base Excess -4.6 L ABG Hemoglobin ABG Oxyhemoglobin ABG Potassium ABG Glucose Oxyhemoglobin 92.6 L Carboxyhemoglobin Sodium Potassium Chloride Carbon Dioxide BUN Creatinine Glucose POC Glucose Calcium Ferritin 1715.0 H Total Bilirubin Alkaline Phosphatase Lactate Dehydrogenase 303 H Troponin T C-Reactive Protein 26.10 H Total Protein Albumin Prealbumin LDL Cholesterol Direct Arterial Blood Glucose Arterial Blood Ionized Calcium Urine WBC (Auto) 02/24/20 02/24/20 02/24/20 11:52 13:45 19:35 WBC RBC Hgb Hct MCV MCH RDW Plt Count Lymph % (Auto) Lymph # (Auto) [place] # (Auto) Seg Neutrophils % Seg Neuts % (Manual) Lymphocytes % (Manual) Monocytes % (Manual) Basophils % (Manual) Seg Neutrophils # Seg Neutrophils # Man Lymphocytes # (Manual) Monocytes # (Manual) Eosinophils # (Manual) Basophils # (Manual) PT INR D-Dimer ABG pH 7.051 L* 7.300 L POC ABG pCO2 POC ABG pO2 ABG pO2 94.7 H 75.1 L ABG HCO3 18.0 L ABG O2 Saturation 93.5 L ABG Base Excess -6.8 L -7.8 L ABG Hemoglobin 13.2 L 11.9 L ABG Oxyhemoglobin ABG Potassium ABG Glucose Oxyhemoglobin 91.0 L 92.7 L Carboxyhemoglobin Sodium Potassium Chloride Carbon Dioxide BUN Creatinine Glucose POC Glucose Calcium Ferritin Total Bilirubin Alkaline Phosphatase Lactate Dehydrogenase Troponin T 0.034 H D C-Reactive Protein Total Protein Albumin Prealbumin LDL Cholesterol Direct Arterial Blood Glucose Arterial Blood Ionized Calcium Urine WBC (Auto) 02/25/20 02/25/20 02/25/20 04:00 04:00 12:26 WBC 22.9 H RBC Hgb Hct MCV 83 L MCH 27 L RDW Plt Count 468 H Lymph % (Auto) Lymph # (Auto) [place] # (Auto) Seg Neutrophils % Seg Neuts % (Manual) 89.0 H Lymphocytes % (Manual) 7.0 L Monocytes % (Manual) Basophils % (Manual) Seg Neutrophils # Seg Neutrophils # Man 20.4 H Lymphocytes # (Manual) Monocytes # (Manual) Eosinophils # (Manual) Basophils # (Manual) PT INR D-Dimer ABG pH POC ABG pCO2 POC ABG pO2 ABG pO2 ABG HCO3 ABG O2 Saturation ABG Base Excess ABG Hemoglobin ABG Oxyhemoglobin ABG Potassium 2.6 L ABG Glucose 142 H Oxyhemoglobin Carboxyhemoglobin Sodium Potassium 3.2 L Chloride Carbon Dioxide 18 L BUN Creatinine 0.2 L Glucose 114 H POC Glucose Calcium Ferritin Total Bilirubin Alkaline Phosphatase Lactate Dehydrogenase Troponin T C-Reactive Protein Total Protein Albumin 3.5 L Prealbumin LDL Cholesterol Direct Arterial Blood Glucose 142 H Arterial Blood Ionized Calcium Urine WBC (Auto) 02/26/20 02/26/20 02/26/20 15:58 17:00 23:43 WBC RBC Hgb Hct MCV MCH RDW Plt Count Lymph % (Auto) Lymph # (Auto) [place] # (Auto) Seg Neutrophils % Seg Neuts % (Manual) Lymphocytes % (Manual) Monocytes % (Manual) Basophils % (Manual) Seg Neutrophils # Seg Neutrophils # Man Lymphocytes # (Manual) Monocytes # (Manual) Eosinophils # (Manual) Basophils # (Manual) PT INR D-Dimer ABG pH 7.502 H POC ABG pCO2 POC ABG pO2 213.6 H ABG pO2 ABG HCO3 ABG O2 Saturation ABG Base Excess ABG Hemoglobin ABG Oxyhemoglobin 99.2 H ABG Potassium 2.9 L ABG Glucose 160 H Oxyhemoglobin Carboxyhemoglobin 0.4 L Sodium Potassium Chloride Carbon Dioxide BUN Creatinine Glucose POC Glucose 189 H 120 H Calcium Ferritin Total Bilirubin Alkaline Phosphatase Lactate Dehydrogenase Troponin T C-Reactive Protein Total Protein Albumin Prealbumin LDL Cholesterol Direct Arterial Blood Glucose 160 H Arterial Blood Ionized Calcium 4.5 L Urine WBC (Auto) 02/27/20 02/27/20 02/27/20 05:00 07:04 17:45 WBC RBC Hgb Hct MCV MCH RDW Plt Count Lymph % (Auto) Lymph # (Auto) [place] # (Auto) Seg Neutrophils % Seg Neuts % (Manual) Lymphocytes % (Manual) Monocytes % (Manual) Basophils % (Manual) Seg Neutrophils # Seg Neutrophils # Man Lymphocytes # (Manual) Monocytes # (Manual) Eosinophils # (Manual) Basophils # (Manual) PT INR D-Dimer ABG pH 7.524 H POC ABG pCO2 POC ABG pO2 ABG pO2 ABG HCO3 ABG O2 Saturation ABG Base Excess ABG Hemoglobin ABG Oxyhemoglobin ABG Potassium 3.0 L ABG Glucose 143 H Oxyhemoglobin Carboxyhemoglobin Sodium Potassium Chloride Carbon Dioxide BUN Creatinine Glucose POC Glucose 154 H 175 H Calcium Ferritin Total Bilirubin Alkaline Phosphatase Lactate Dehydrogenase Troponin T C-Reactive Protein Total Protein Albumin Prealbumin LDL Cholesterol Direct Arterial Blood Glucose 143 H Arterial Blood Ionized Calcium Urine WBC (Auto) 02/27/20 02/28/20 02/28/20 Unknown 00:21 04:15 WBC 18.7 H RBC Hgb Hct MCV MCH RDW Plt Count Lymph % (Auto) 8.7 L Lymph # (Auto) [place] # (Auto) 1.2 H Seg Neutrophils % 84.6 H Seg Neuts % (Manual) Lymphocytes % (Manual) Monocytes % (Manual) Basophils % (Manual) Seg Neutrophils # 15.9 H Seg Neutrophils # Man Lymphocytes # (Manual) Monocytes # (Manual) Eosinophils # (Manual) Basophils # (Manual) PT INR D-Dimer ABG pH POC ABG pCO2 POC ABG pO2 ABG pO2 ABG HCO3 ABG O2 Saturation ABG Base Excess ABG Hemoglobin ABG Oxyhemoglobin ABG Potassium ABG Glucose Oxyhemoglobin Carboxyhemoglobin Sodium Potassium 2.9 L* Chloride Carbon Dioxide 33 H D BUN Creatinine < 0.2 L Glucose 157 H POC Glucose 134 H Calcium Ferritin Total Bilirubin Alkaline Phosphatase Lactate Dehydrogenase Troponin T C-Reactive Protein Total Protein Albumin Prealbumin LDL Cholesterol Direct Arterial Blood Glucose Arterial Blood Ionized Calcium Urine WBC (Auto) 02/28/20 02/28/20 02/28/20 04:15 05:16 05:39 WBC RBC Hgb Hct MCV MCH RDW Plt Count Lymph % (Auto) Lymph # (Auto) [place] # (Auto) Seg Neutrophils % Seg Neuts % (Manual) Lymphocytes % (Manual) Monocytes % (Manual) Basophils % (Manual) Seg Neutrophils # Seg Neutrophils # Man Lymphocytes # (Manual) Monocytes # (Manual) Eosinophils # (Manual) Basophils # (Manual) PT INR D-Dimer ABG pH POC ABG pCO2 POC ABG pO2 ABG pO2 142.9 H ABG HCO3 34.1 H ABG O2 Saturation ABG Base Excess 8.3 H ABG Hemoglobin ABG Oxyhemoglobin ABG Potassium ABG Glucose Oxyhemoglobin Carboxyhemoglobin Sodium 151 H Potassium Chloride Carbon Dioxide 32 H BUN Creatinine 0.2 L Glucose 167 H POC Glucose 138 H Calcium Ferritin Total Bilirubin Alkaline Phosphatase Lactate Dehydrogenase Troponin T C-Reactive Protein Total Protein Albumin Prealbumin LDL Cholesterol Direct Arterial Blood Glucose Arterial Blood Ionized Calcium Urine WBC (Auto) 02/28/20 02/28/20 02/28/20 11:05 11:33 12:54 WBC RBC Hgb Hct MCV MCH RDW Plt Count Lymph % (Auto) Lymph # (Auto) [place] # (Auto) Seg Neutrophils % Seg Neuts % (Manual) Lymphocytes % (Manual) Monocytes % (Manual) Basophils % (Manual) Seg Neutrophils # Seg Neutrophils # Man Lymphocytes # (Manual) Monocytes # (Manual) Eosinophils # (Manual) Basophils # (Manual) PT INR D-Dimer ABG pH POC ABG pCO2 POC ABG pO2 ABG pO2 ABG HCO3 ABG O2 Saturation ABG Base Excess ABG Hemoglobin ABG Oxyhemoglobin ABG Potassium ABG Glucose Oxyhemoglobin Carboxyhemoglobin Sodium Potassium Chloride Carbon Dioxide BUN Creatinine Glucose POC Glucose 160 H Calcium Ferritin Total Bilirubin Alkaline Phosphatase Lactate Dehydrogenase Troponin T C-Reactive Protein 4.70 H Total Protein Albumin Prealbumin 0.090 L LDL Cholesterol Direct Arterial Blood Glucose Arterial Blood Ionized Calcium Urine WBC (Auto) 02/28/20 02/29/20 02/29/20 17:34 00:44 04:05 WBC 19.6 H RBC Hgb Hct MCV MCH 27 L RDW 15.4 H Plt Count Lymph % (Auto) Lymph # (Auto) [place] # (Auto) Seg Neutrophils % Seg Neuts % (Manual) 86.0 H Lymphocytes % (Manual) 7.0 L Monocytes % (Manual) Basophils % (Manual) Seg Neutrophils # Seg Neutrophils # Man 16.9 H Lymphocytes # (Manual) Monocytes # (Manual) 1.2 H Eosinophils # (Manual) Basophils # (Manual) PT INR D-Dimer ABG pH POC ABG pCO2 POC ABG pO2 ABG pO2 ABG HCO3 ABG O2 Saturation ABG Base Excess ABG Hemoglobin ABG Oxyhemoglobin ABG Potassium ABG Glucose Oxyhemoglobin Carboxyhemoglobin Sodium Potassium Chloride Carbon Dioxide BUN Creatinine Glucose POC Glucose 136 H 156 H Calcium Ferritin Total Bilirubin Alkaline Phosphatase Lactate Dehydrogenase Troponin T C-Reactive Protein Total Protein Albumin Prealbumin LDL Cholesterol Direct Arterial Blood Glucose Arterial Blood Ionized Calcium Urine WBC (Auto) 02/29/20 02/29/20 02/29/20 04:05 05:14 05:33 WBC RBC Hgb Hct MCV MCH RDW Plt Count Lymph % (Auto) Lymph # (Auto) [place] # (Auto) Seg Neutrophils % Seg Neuts % (Manual) Lymphocytes % (Manual) Monocytes % (Manual) Basophils % (Manual) Seg Neutrophils # Seg Neutrophils # Man Lymphocytes # (Manual) Monocytes # (Manual) Eosinophils # (Manual) Basophils # (Manual) PT INR D-Dimer ABG pH POC ABG pCO2 54.3 H POC ABG pO2 124.8 H ABG pO2 ABG HCO3 ABG O2 Saturation ABG Base Excess ABG Hemoglobin ABG Oxyhemoglobin ABG Potassium ABG Glucose 185 H Oxyhemoglobin Carboxyhemoglobin Sodium 148 H Potassium Chloride Carbon Dioxide 33 H BUN Creatinine < 0.2 L Glucose 173 H POC Glucose 152 H Calcium Ferritin Total Bilirubin Alkaline Phosphatase Lactate Dehydrogenase Troponin T C-Reactive Protein Total Protein Albumin Prealbumin LDL Cholesterol Direct Arterial Blood Glucose 185 H Arterial Blood Ionized Calcium Urine WBC (Auto) 03/01/20 03/01/20 03/01/20 00:00 03:45 04:33 WBC 23.1 H RBC Hgb Hct MCV MCH 27 L RDW 15.3 H Plt Count Lymph % (Auto) Lymph # (Auto) [place] # (Auto) Seg Neutrophils % Seg Neuts % (Manual) 92.0 H Lymphocytes % (Manual) 6.0 L Monocytes % (Manual) Basophils % (Manual) Seg Neutrophils # Seg Neutrophils # Man 21.3 H Lymphocytes # (Manual) Monocytes # (Manual) Eosinophils # (Manual) 0.5 H Basophils # (Manual) PT INR D-Dimer ABG pH 7.492 H POC ABG pCO2 POC ABG pO2 ABG pO2 157.1 H ABG HCO3 32.3 H ABG O2 Saturation ABG Base Excess 8.1 H ABG Hemoglobin 13.2 L ABG Oxyhemoglobin ABG Potassium ABG Glucose Oxyhemoglobin Carboxyhemoglobin Sodium Potassium Chloride Carbon Dioxide BUN Creatinine Glucose POC Glucose 109 H Calcium Ferritin Total Bilirubin Alkaline Phosphatase Lactate Dehydrogenase Troponin T C-Reactive Protein Total Protein Albumin Prealbumin LDL Cholesterol Direct Arterial Blood Glucose Arterial Blood Ionized Calcium Urine WBC (Auto) 03/01/20 03/01/20 03/01/20 04:33 05:29 12:32 WBC RBC Hgb Hct MCV MCH RDW Plt Count Lymph % (Auto) Lymph # (Auto) [place] # (Auto) Seg Neutrophils % Seg Neuts % (Manual) Lymphocytes % (Manual) Monocytes % (Manual) Basophils % (Manual) Seg Neutrophils # Seg Neutrophils # Man Lymphocytes # (Manual) Monocytes # (Manual) Eosinophils # (Manual) Basophils # (Manual) PT INR D-Dimer ABG pH POC ABG pCO2 POC ABG pO2 ABG pO2 ABG HCO3 ABG O2 Saturation ABG Base Excess ABG Hemoglobin ABG Oxyhemoglobin ABG Potassium ABG Glucose Oxyhemoglobin Carboxyhemoglobin Sodium 146 H Potassium Chloride Carbon Dioxide 32 H BUN Creatinine < 0.2 L Glucose 120 H POC Glucose 120 H 128 H Calcium Ferritin Total Bilirubin Alkaline Phosphatase Lactate Dehydrogenase Troponin T C-Reactive Protein Total Protein Albumin Prealbumin LDL Cholesterol Direct Arterial Blood Glucose Arterial Blood Ionized Calcium Urine WBC (Auto) 03/01/20 03/01/20 03/02/20 17:38 23:46 06:13 WBC RBC Hgb Hct MCV MCH RDW Plt Count Lymph % (Auto) Lymph # (Auto) [place] # (Auto) Seg Neutrophils % Seg Neuts % (Manual) Lymphocytes % (Manual) Monocytes % (Manual) Basophils % (Manual) Seg Neutrophils # Seg Neutrophils # Man Lymphocytes # (Manual) Monocytes # (Manual) Eosinophils # (Manual) Basophils # (Manual) PT INR D-Dimer ABG pH POC ABG pCO2 POC ABG pO2 ABG pO2 ABG HCO3 ABG O2 Saturation ABG Base Excess ABG Hemoglobin ABG Oxyhemoglobin ABG Potassium ABG Glucose Oxyhemoglobin Carboxyhemoglobin Sodium Potassium Chloride Carbon Dioxide BUN Creatinine Glucose POC Glucose 114 H 121 H 120 H Calcium Ferritin Total Bilirubin Alkaline Phosphatase Lactate Dehydrogenase Troponin T C-Reactive Protein Total Protein Albumin Prealbumin LDL Cholesterol Direct Arterial Blood Glucose Arterial Blood Ionized Calcium Urine WBC (Auto) 03/02/20 03/02/20 03/03/20 09:47 09:47 10:21 WBC 23.6 H RBC Hgb Hct MCV MCH RDW 15.3 H Plt Count 494 H Lymph % (Auto) Lymph # (Auto) [place] # (Auto) Seg Neutrophils % Seg Neuts % (Manual) 85.0 H Lymphocytes % (Manual) 6.0 L Monocytes % (Manual) Basophils % (Manual) Seg Neutrophils # Seg Neutrophils # Man 20.1 H Lymphocytes # (Manual) Monocytes # (Manual) 1.7 H Eosinophils # (Manual) Basophils # (Manual) PT INR D-Dimer ABG pH POC ABG pCO2 POC ABG pO2 ABG pO2 ABG HCO3 ABG O2 Saturation ABG Base Excess ABG Hemoglobin ABG Oxyhemoglobin ABG Potassium 3.3 L ABG Glucose 158 H Oxyhemoglobin Carboxyhemoglobin Sodium Potassium Chloride Carbon Dioxide BUN Creatinine < 0.2 L Glucose 177 H POC Glucose Calcium Ferritin Total Bilirubin Alkaline Phosphatase Lactate Dehydrogenase Troponin T C-Reactive Protein Total Protein Albumin Prealbumin LDL Cholesterol Direct Arterial Blood Glucose 158 H Arterial Blood Ionized Calcium Urine WBC (Auto) 03/03/20 03/04/20 03/04/20 21:30 00:00 12:23 WBC RBC Hgb Hct MCV MCH RDW Plt Count Lymph % (Auto) Lymph # (Auto) [place] # (Auto) Seg Neutrophils % Seg Neuts % (Manual) Lymphocytes % (Manual) Monocytes % (Manual) Basophils % (Manual) Seg Neutrophils # Seg Neutrophils # Man Lymphocytes # (Manual) Monocytes # (Manual) Eosinophils # (Manual) Basophils # (Manual) PT INR D-Dimer ABG pH 7.328 L POC ABG pCO2 POC ABG pO2 ABG pO2 68.4 L ABG HCO3 35.0 H ABG O2 Saturation 93.9 L ABG Base Excess 6.8 H ABG Hemoglobin 12.7 L ABG Oxyhemoglobin ABG Potassium ABG Glucose Oxyhemoglobin 91.9 L Carboxyhemoglobin Sodium Potassium Chloride Carbon Dioxide BUN Creatinine Glucose POC Glucose 187 H 163 H Calcium Ferritin Total Bilirubin Alkaline Phosphatase Lactate Dehydrogenase Troponin T C-Reactive Protein Total Protein Albumin Prealbumin LDL Cholesterol Direct Arterial Blood Glucose Arterial Blood Ionized Calcium Urine WBC (Auto) 03/04/20 03/04/20 03/05/20 18:15 21:30 06:02 WBC RBC Hgb Hct MCV MCH RDW Plt Count Lymph % (Auto) Lymph # (Auto) [place] # (Auto) Seg Neutrophils % Seg Neuts % (Manual) Lymphocytes % (Manual) Monocytes % (Manual) Basophils % (Manual) Seg Neutrophils # Seg Neutrophils # Man Lymphocytes # (Manual) Monocytes # (Manual) Eosinophils # (Manual) Basophils # (Manual) PT INR D-Dimer ABG pH 7.297 L POC ABG pCO2 POC ABG pO2 ABG pO2 ABG HCO3 41.0 H ABG O2 Saturation ABG Base Excess 11.0 H ABG Hemoglobin 13.1 L ABG Oxyhemoglobin ABG Potassium ABG Glucose Oxyhemoglobin 94.5 L Carboxyhemoglobin Sodium Potassium Chloride Carbon Dioxide BUN Creatinine Glucose POC Glucose 192 H 127 H Calcium Ferritin Total Bilirubin Alkaline Phosphatase Lactate Dehydrogenase Troponin T C-Reactive Protein Total Protein Albumin Prealbumin LDL Cholesterol Direct Arterial Blood Glucose Arterial Blood Ionized Calcium Urine WBC (Auto) 03/05/20 03/05/20 03/06/20 12:09 16:42 00:24 WBC RBC Hgb Hct MCV MCH RDW Plt Count Lymph % (Auto) Lymph # (Auto) [place] # (Auto) Seg Neutrophils % Seg Neuts % (Manual) Lymphocytes % (Manual) Monocytes % (Manual) Basophils % (Manual) Seg Neutrophils # Seg Neutrophils # Man Lymphocytes # (Manual) Monocytes # (Manual) Eosinophils # (Manual) Basophils # (Manual) PT INR D-Dimer ABG pH POC ABG pCO2 POC ABG pO2 ABG pO2 ABG HCO3 ABG O2 Saturation ABG Base Excess ABG Hemoglobin ABG Oxyhemoglobin ABG Potassium ABG Glucose Oxyhemoglobin Carboxyhemoglobin Sodium Potassium Chloride Carbon Dioxide BUN Creatinine Glucose POC Glucose 147 H 114 H 134 H Calcium Ferritin Total Bilirubin Alkaline Phosphatase Lactate Dehydrogenase Troponin T C-Reactive Protein Total Protein Albumin Prealbumin LDL Cholesterol Direct Arterial Blood Glucose Arterial Blood Ionized Calcium Urine WBC (Auto) 03/06/20 03/06/20 03/06/20 04:34 05:53 06:08 WBC 25.4 H RBC Hgb 10.5 L Hct 32.7 L MCV MCH 27 L RDW 15.3 H Plt Count 634 H Lymph % (Auto) Lymph # (Auto) [place] # (Auto) Seg Neutrophils % Seg Neuts % (Manual) 88.0 H Lymphocytes % (Manual) 2.0 L Monocytes % (Manual) 8.0 H Basophils % (Manual) Seg Neutrophils # Seg Neutrophils # Man 22.4 H Lymphocytes # (Manual) 0.5 L Monocytes # (Manual) 2.0 H Eosinophils # (Manual) Basophils # (Manual) PT INR D-Dimer ABG pH POC ABG pCO2 POC ABG pO2 ABG pO2 ABG HCO3 37.9 H ABG O2 Saturation ABG Base Excess 11.4 H ABG Hemoglobin 10.6 L ABG Oxyhemoglobin ABG Potassium ABG Glucose Oxyhemoglobin 94.7 L Carboxyhemoglobin Sodium Potassium Chloride Carbon Dioxide BUN Creatinine Glucose POC Glucose 135 H Calcium Ferritin Total Bilirubin Alkaline Phosphatase Lactate Dehydrogenase Troponin T C-Reactive Protein Total Protein Albumin Prealbumin LDL Cholesterol Direct Arterial Blood Glucose Arterial Blood Ionized Calcium Urine WBC (Auto) 03/06/20 03/06/20 03/06/20 06:08 12:19 19:10 WBC RBC Hgb Hct MCV MCH RDW Plt Count Lymph % (Auto) Lymph # (Auto) [place] # (Auto) Seg Neutrophils % Seg Neuts % (Manual) Lymphocytes % (Manual) Monocytes % (Manual) Basophils % (Manual) Seg Neutrophils # Seg Neutrophils # Man Lymphocytes # (Manual) Monocytes # (Manual) Eosinophils # (Manual) Basophils # (Manual) PT INR D-Dimer ABG pH POC ABG pCO2 POC ABG pO2 ABG pO2 ABG HCO3 ABG O2 Saturation ABG Base Excess ABG Hemoglobin ABG Oxyhemoglobin ABG Potassium ABG Glucose Oxyhemoglobin Carboxyhemoglobin Sodium 150 H D Potassium Chloride Carbon Dioxide 39 H D BUN 23 H Creatinine < 0.2 L Glucose 144 H POC Glucose 169 H 152 H Calcium Ferritin Total Bilirubin Alkaline Phosphatase Lactate Dehydrogenase Troponin T C-Reactive Protein Total Protein Albumin 3.3 L Prealbumin LDL Cholesterol Direct Arterial Blood Glucose Arterial Blood Ionized Calcium Urine WBC (Auto) 03/06/20 03/07/20 03/07/20 23:58 04:25 04:25 WBC 22.1 H RBC Hgb 10.9 L Hct 32.9 L MCV MCH RDW 15.5 H Plt Count 739 H Lymph % (Auto) 7.8 L Lymph # (Auto) [place] # (Auto) 1.3 H Seg Neutrophils % 85.5 H Seg Neuts % (Manual) Lymphocytes % (Manual) Monocytes % (Manual) Basophils % (Manual) Seg Neutrophils # 18.9 H Seg Neutrophils # Man Lymphocytes # (Manual) Monocytes # (Manual) Eosinophils # (Manual) Basophils # (Manual) PT INR D-Dimer ABG pH POC ABG pCO2 POC ABG pO2 ABG pO2 ABG HCO3 ABG O2 Saturation ABG Base Excess ABG Hemoglobin ABG Oxyhemoglobin ABG Potassium ABG Glucose Oxyhemoglobin Carboxyhemoglobin Sodium 146 H Potassium Chloride Carbon Dioxide 37 H BUN Creatinine < 0.2 L Glucose 118 H POC Glucose 111 H Calcium Ferritin Total Bilirubin Alkaline Phosphatase Lactate Dehydrogenase Troponin T C-Reactive Protein Total Protein Albumin 3.7 L Prealbumin LDL Cholesterol Direct Arterial Blood Glucose Arterial Blood Ionized Calcium Urine WBC (Auto) 03/07/20 03/07/20 03/07/20 05:20 17:45 23:32 WBC RBC Hgb Hct MCV MCH RDW Plt Count Lymph % (Auto) Lymph # (Auto) [place] # (Auto) Seg Neutrophils % Seg Neuts % (Manual) Lymphocytes % (Manual) Monocytes % (Manual) Basophils % (Manual) Seg Neutrophils # Seg Neutrophils # Man Lymphocytes # (Manual) Monocytes # (Manual) Eosinophils # (Manual) Basophils # (Manual) PT INR D-Dimer ABG pH POC ABG pCO2 POC ABG pO2 ABG pO2 ABG HCO3 ABG O2 Saturation ABG Base Excess ABG Hemoglobin ABG Oxyhemoglobin ABG Potassium ABG Glucose Oxyhemoglobin Carboxyhemoglobin Sodium Potassium Chloride Carbon Dioxide BUN Creatinine Glucose POC Glucose 113 H 124 H 210 H Calcium Ferritin Total Bilirubin Alkaline Phosphatase Lactate Dehydrogenase Troponin T C-Reactive Protein Total Protein Albumin Prealbumin LDL Cholesterol Direct Arterial Blood Glucose Arterial Blood Ionized Calcium Urine WBC (Auto) 03/08/20 03/08/20 03/08/20 05:35 06:43 06:43 WBC 28.9 H RBC 3.53 L Hgb 9.7 L Hct 30.3 L MCV MCH RDW 15.6 H Plt Count 578 H Lymph % (Auto) Lymph # (Auto) [place] # (Auto) Seg Neutrophils % Seg Neuts % (Manual) 93.0 H Lymphocytes % (Manual) 4.0 L Monocytes % (Manual) Basophils % (Manual) Seg Neutrophils # Seg Neutrophils # Man 26.9 H Lymphocytes # (Manual) Monocytes # (Manual) Eosinophils # (Manual) Basophils # (Manual) PT INR D-Dimer ABG pH POC ABG pCO2 POC ABG pO2 ABG pO2 ABG HCO3 ABG O2 Saturation ABG Base Excess ABG Hemoglobin ABG Oxyhemoglobin ABG Potassium ABG Glucose Oxyhemoglobin Carboxyhemoglobin Sodium 146 H Potassium Chloride Carbon Dioxide 35 H BUN 34 H Creatinine 0.3 L D Glucose 125 H POC Glucose 147 H Calcium Ferritin Total Bilirubin Alkaline Phosphatase Lactate Dehydrogenase Troponin T C-Reactive Protein Total Protein 5.9 L Albumin 3.2 L Prealbumin LDL Cholesterol Direct Arterial Blood Glucose Arterial Blood Ionized Calcium Urine WBC (Auto) 03/08/20 03/08/20 03/08/20 08:57 11:14 12:34 WBC RBC Hgb Hct MCV MCH RDW Plt Count Lymph % (Auto) Lymph # (Auto) [place] # (Auto) Seg Neutrophils % Seg Neuts % (Manual) Lymphocytes % (Manual) Monocytes % (Manual) Basophils % (Manual) Seg Neutrophils # Seg Neutrophils # Man Lymphocytes # (Manual) Monocytes # (Manual) Eosinophils # (Manual) Basophils # (Manual) PT INR D-Dimer ABG pH POC ABG pCO2 63.1 H POC ABG pO2 ABG pO2 ABG HCO3 ABG O2 Saturation ABG Base Excess ABG Hemoglobin 10.9 L ABG Oxyhemoglobin ABG Potassium ABG Glucose 176 H Oxyhemoglobin Carboxyhemoglobin Sodium Potassium Chloride Carbon Dioxide BUN Creatinine Glucose POC Glucose 171 H Calcium Ferritin Total Bilirubin Alkaline Phosphatase Lactate Dehydrogenase Troponin T C-Reactive Protein Total Protein Albumin Prealbumin LDL Cholesterol Direct Arterial Blood Glucose 176 H Arterial Blood Ionized Calcium 4.5 L Urine WBC (Auto) 10.0 H 03/08/20 03/08/20 03/09/20 18:02 23:43 05:49 WBC RBC Hgb Hct MCV MCH RDW Plt Count Lymph % (Auto) Lymph # (Auto) [place] # (Auto) Seg Neutrophils % Seg Neuts % (Manual) Lymphocytes % (Manual) Monocytes % (Manual) Basophils % (Manual) Seg Neutrophils # Seg Neutrophils # Man Lymphocytes # (Manual) Monocytes # (Manual) Eosinophils # (Manual) Basophils # (Manual) PT INR D-Dimer ABG pH POC ABG pCO2 POC ABG pO2 ABG pO2 ABG HCO3 ABG O2 Saturation ABG Base Excess ABG Hemoglobin ABG Oxyhemoglobin ABG Potassium ABG Glucose Oxyhemoglobin Carboxyhemoglobin Sodium Potassium Chloride Carbon Dioxide BUN Creatinine Glucose POC Glucose 157 H 134 H 163 H Calcium Ferritin Total Bilirubin Alkaline Phosphatase Lactate Dehydrogenase Troponin T C-Reactive Protein Total Protein Albumin Prealbumin LDL Cholesterol Direct Arterial Blood Glucose Arterial Blood Ionized Calcium Urine WBC (Auto) 03/09/20 03/09/20 03/09/20 08:35 08:35 12:11 WBC 23.4 H RBC 3.36 L Hgb 9.3 L Hct 28.8 L MCV MCH RDW 15.9 H Plt Count 521 H Lymph % (Auto) Lymph # (Auto) [place] # (Auto) Seg Neutrophils % Seg Neuts % (Manual) 87.0 H Lymphocytes % (Manual) 4.0 L Monocytes % (Manual) 9.0 H Basophils % (Manual) Seg Neutrophils # Seg Neutrophils # Man 20.4 H Lymphocytes # (Manual) 0.9 L Monocytes # (Manual) 2.1 H Eosinophils # (Manual) Basophils # (Manual) PT INR D-Dimer ABG pH POC ABG pCO2 POC ABG pO2 ABG pO2 ABG HCO3 ABG O2 Saturation ABG Base Excess ABG Hemoglobin ABG Oxyhemoglobin ABG Potassium ABG Glucose Oxyhemoglobin Carboxyhemoglobin Sodium 147 H Potassium Chloride Carbon Dioxide 37 H BUN 63 H Creatinine Glucose 154 H POC Glucose 128 H Calcium Ferritin Total Bilirubin Alkaline Phosphatase Lactate Dehydrogenase Troponin T C-Reactive Protein Total Protein Albumin Prealbumin LDL Cholesterol Direct Arterial Blood Glucose Arterial Blood Ionized Calcium Urine WBC (Auto) 03/09/20 03/10/20 03/10/20 17:51 00:25 05:41 WBC RBC Hgb Hct MCV MCH RDW Plt Count Lymph % (Auto) Lymph # (Auto) [place] # (Auto) Seg Neutrophils % Seg Neuts % (Manual) Lymphocytes % (Manual) Monocytes % (Manual) Basophils % (Manual) Seg Neutrophils # Seg Neutrophils # Man Lymphocytes # (Manual) Monocytes # (Manual) Eosinophils # (Manual) Basophils # (Manual) PT INR D-Dimer ABG pH POC ABG pCO2 POC ABG pO2 ABG pO2 ABG HCO3 ABG O2 Saturation ABG Base Excess ABG Hemoglobin ABG Oxyhemoglobin ABG Potassium ABG Glucose Oxyhemoglobin Carboxyhemoglobin Sodium Potassium Chloride Carbon Dioxide BUN Creatinine Glucose POC Glucose 127 H 128 H 153 H Calcium Ferritin Total Bilirubin Alkaline Phosphatase Lactate Dehydrogenase Troponin T C-Reactive Protein Total Protein Albumin Prealbumin LDL Cholesterol Direct Arterial Blood Glucose Arterial Blood Ionized Calcium Urine WBC (Auto) 03/10/20 03/10/20 03/10/20 06:14 06:14 12:02 WBC 18.3 H RBC 3.45 L Hgb 9.5 L Hct 29.5 L MCV MCH RDW 16.1 H Plt Count 494 H Lymph % (Auto) Lymph # (Auto) [place] # (Auto) Seg Neutrophils % Seg Neuts % (Manual) 95.0 H Lymphocytes % (Manual) 1.0 L Monocytes % (Manual) Basophils % (Manual) Seg Neutrophils # Seg Neutrophils # Man 17.4 H Lymphocytes # (Manual) 0.2 L Monocytes # (Manual) Eosinophils # (Manual) Basophils # (Manual) PT INR D-Dimer ABG pH POC ABG pCO2 POC ABG pO2 ABG pO2 ABG HCO3 ABG O2 Saturation ABG Base Excess ABG Hemoglobin ABG Oxyhemoglobin ABG Potassium ABG Glucose Oxyhemoglobin Carboxyhemoglobin Sodium 149 H Potassium Chloride Carbon Dioxide 35 H BUN 34 H Creatinine 0.2 L D Glucose 177 H POC Glucose 151 H Calcium Ferritin Total Bilirubin Alkaline Phosphatase Lactate Dehydrogenase Troponin T C-Reactive Protein Total Protein Albumin Prealbumin LDL Cholesterol Direct Arterial Blood Glucose Arterial Blood Ionized Calcium Urine WBC (Auto) 03/10/20 03/10/20 03/11/20 17:41 23:53 05:02 WBC RBC Hgb Hct MCV MCH RDW Plt Count Lymph % (Auto) Lymph # (Auto) [place] # (Auto) Seg Neutrophils % Seg Neuts % (Manual) Lymphocytes % (Manual) Monocytes % (Manual) Basophils % (Manual) Seg Neutrophils # Seg Neutrophils # Man Lymphocytes # (Manual) Monocytes # (Manual) Eosinophils # (Manual) Basophils # (Manual) PT INR D-Dimer ABG pH POC ABG pCO2 POC ABG pO2 ABG pO2 ABG HCO3 ABG O2 Saturation ABG Base Excess ABG Hemoglobin ABG Oxyhemoglobin ABG Potassium ABG Glucose Oxyhemoglobin Carboxyhemoglobin Sodium Potassium Chloride Carbon Dioxide BUN Creatinine Glucose POC Glucose 168 H 142 H 146 H Calcium Ferritin Total Bilirubin Alkaline Phosphatase Lactate Dehydrogenase Troponin T C-Reactive Protein Total Protein Albumin Prealbumin LDL Cholesterol Direct Arterial Blood Glucose Arterial Blood Ionized Calcium Urine WBC (Auto) 03/11/20 03/11/20 03/11/20 11:30 14:01 14:01 WBC 19.7 H RBC 3.04 L Hgb 8.7 L Hct 25.8 L MCV MCH RDW 15.6 H Plt Count Lymph % (Auto) Lymph # (Auto) [place] # (Auto) Seg Neutrophils % Seg Neuts % (Manual) Lymphocytes % (Manual) Monocytes % (Manual) Basophils % (Manual) Seg Neutrophils # Seg Neutrophils # Man Lymphocytes # (Manual) Monocytes # (Manual) Eosinophils # (Manual) Basophils # (Manual) PT INR D-Dimer ABG pH POC ABG pCO2 POC ABG pO2 ABG pO2 ABG HCO3 ABG O2 Saturation ABG Base Excess ABG Hemoglobin ABG Oxyhemoglobin ABG Potassium ABG Glucose Oxyhemoglobin Carboxyhemoglobin Sodium 151 H Potassium Chloride Carbon Dioxide 37 H BUN Creatinine < 0.2 L Glucose 171 H POC Glucose 248 H Calcium Ferritin Total Bilirubin Alkaline Phosphatase Lactate Dehydrogenase Troponin T C-Reactive Protein Total Protein Albumin Prealbumin LDL Cholesterol Direct Arterial Blood Glucose Arterial Blood Ionized Calcium Urine WBC (Auto) 03/11/20 03/11/20 03/12/20 17:09 23:52 04:39 WBC 19.9 H RBC 3.16 L Hgb 8.9 L Hct 27.5 L MCV MCH RDW 15.7 H Plt Count Lymph % (Auto) 6.8 L Lymph # (Auto) [place] # (Auto) 1.2 H Seg Neutrophils % 86.0 H Seg Neuts % (Manual) Lymphocytes % (Manual) Monocytes % (Manual) Basophils % (Manual) Seg Neutrophils # 17.1 H Seg Neutrophils # Man Lymphocytes # (Manual) Monocytes # (Manual) Eosinophils # (Manual) Basophils # (Manual) PT INR D-Dimer ABG pH POC ABG pCO2 POC ABG pO2 ABG pO2 ABG HCO3 ABG O2 Saturation ABG Base Excess ABG Hemoglobin ABG Oxyhemoglobin ABG Potassium ABG Glucose Oxyhemoglobin Carboxyhemoglobin Sodium Potassium Chloride Carbon Dioxide BUN Creatinine Glucose POC Glucose 124 H 131 H Calcium Ferritin Total Bilirubin Alkaline Phosphatase Lactate Dehydrogenase Troponin T C-Reactive Protein Total Protein Albumin Prealbumin LDL Cholesterol Direct Arterial Blood Glucose Arterial Blood Ionized Calcium Urine WBC (Auto) 03/12/20 03/12/20 03/12/20 04:39 05:28 11:34 WBC RBC Hgb Hct MCV MCH RDW Plt Count Lymph % (Auto) Lymph # (Auto) [place] # (Auto) Seg Neutrophils % Seg Neuts % (Manual) Lymphocytes % (Manual) Monocytes % (Manual) Basophils % (Manual) Seg Neutrophils # Seg Neutrophils # Man Lymphocytes # (Manual) Monocytes # (Manual) Eosinophils # (Manual) Basophils # (Manual) PT INR D-Dimer ABG pH POC ABG pCO2 POC ABG pO2 ABG pO2 ABG HCO3 ABG O2 Saturation ABG Base Excess ABG Hemoglobin ABG Oxyhemoglobin ABG Potassium ABG Glucose Oxyhemoglobin Carboxyhemoglobin Sodium 147 H Potassium Chloride Carbon Dioxide 40 H BUN Creatinine < 0.2 L Glucose 175 H POC Glucose 167 H 144 H Calcium Ferritin Total Bilirubin Alkaline Phosphatase Lactate Dehydrogenase Troponin T C-Reactive Protein Total Protein Albumin Prealbumin LDL Cholesterol Direct Arterial Blood Glucose Arterial Blood Ionized Calcium Urine WBC (Auto) 03/12/20 03/12/20 03/13/20 17:32 23:57 05:57 WBC RBC Hgb Hct MCV MCH RDW Plt Count Lymph % (Auto) Lymph # (Auto) [place] # (Auto) Seg Neutrophils % Seg Neuts % (Manual) Lymphocytes % (Manual) Monocytes % (Manual) Basophils % (Manual) Seg Neutrophils # Seg Neutrophils # Man Lymphocytes # (Manual) Monocytes # (Manual) Eosinophils # (Manual) Basophils # (Manual) PT INR D-Dimer ABG pH POC ABG pCO2 POC ABG pO2 ABG pO2 ABG HCO3 ABG O2 Saturation ABG Base Excess ABG Hemoglobin ABG Oxyhemoglobin ABG Potassium ABG Glucose Oxyhemoglobin Carboxyhemoglobin Sodium Potassium Chloride Carbon Dioxide BUN Creatinine Glucose POC Glucose 141 H 137 H 161 H Calcium Ferritin Total Bilirubin Alkaline Phosphatase Lactate Dehydrogenase Troponin T C-Reactive Protein Total Protein Albumin Prealbumin LDL Cholesterol Direct Arterial Blood Glucose Arterial Blood Ionized Calcium Urine WBC (Auto) 03/13/20 03/13/20 03/13/20 12:28 14:14 18:39 WBC RBC Hgb Hct MCV MCH RDW Plt Count Lymph % (Auto) Lymph # (Auto) [place] # (Auto) Seg Neutrophils % Seg Neuts % (Manual) Lymphocytes % (Manual) Monocytes % (Manual) Basophils % (Manual) Seg Neutrophils # Seg Neutrophils # Man Lymphocytes # (Manual) Monocytes # (Manual) Eosinophils # (Manual) Basophils # (Manual) PT INR D-Dimer ABG pH POC ABG pCO2 POC ABG pO2 ABG pO2 ABG HCO3 ABG O2 Saturation ABG Base Excess ABG Hemoglobin ABG Oxyhemoglobin ABG Potassium ABG Glucose Oxyhemoglobin Carboxyhemoglobin Sodium Potassium Chloride Carbon Dioxide 39 H BUN Creatinine < 0.2 L Glucose 129 H POC Glucose 130 H 125 H Calcium Ferritin Total Bilirubin Alkaline Phosphatase Lactate Dehydrogenase Troponin T C-Reactive Protein Total Protein Albumin Prealbumin LDL Cholesterol Direct Arterial Blood Glucose Arterial Blood Ionized Calcium Urine WBC (Auto) 03/13/20 03/14/20 03/14/20 23:33 05:24 08:07 WBC 16.8 H RBC 2.81 L Hgb 7.9 L Hct 23.9 L MCV MCH RDW 15.9 H Plt Count Lymph % (Auto) Lymph # (Auto) [place] # (Auto) Seg Neutrophils % Seg Neuts % (Manual) 84.0 H Lymphocytes % (Manual) 10.0 L Monocytes % (Manual) Basophils % (Manual) Seg Neutrophils # Seg Neutrophils # Man 14.1 H Lymphocytes # (Manual) Monocytes # (Manual) Eosinophils # (Manual) Basophils # (Manual) PT INR D-Dimer ABG pH POC ABG pCO2 POC ABG pO2 ABG pO2 ABG HCO3 ABG O2 Saturation ABG Base Excess ABG Hemoglobin ABG Oxyhemoglobin ABG Potassium ABG Glucose Oxyhemoglobin Carboxyhemoglobin Sodium Potassium Chloride Carbon Dioxide BUN Creatinine Glucose POC Glucose 146 H 125 H Calcium Ferritin Total Bilirubin Alkaline Phosphatase Lactate Dehydrogenase Troponin T C-Reactive Protein Total Protein Albumin Prealbumin LDL Cholesterol Direct Arterial Blood Glucose Arterial Blood Ionized Calcium Urine WBC (Auto) 03/14/20 03/14/20 03/14/20 08:07 12:21 18:26 WBC RBC Hgb Hct MCV MCH RDW Plt Count Lymph % (Auto) Lymph # (Auto) [place] # (Auto) Seg Neutrophils % Seg Neuts % (Manual) Lymphocytes % (Manual) Monocytes % (Manual) Basophils % (Manual) Seg Neutrophils # Seg Neutrophils # Man Lymphocytes # (Manual) Monocytes # (Manual) Eosinophils # (Manual) Basophils # (Manual) PT INR D-Dimer ABG pH POC ABG pCO2 POC ABG pO2 ABG pO2 ABG HCO3 ABG O2 Saturation ABG Base Excess ABG Hemoglobin ABG Oxyhemoglobin ABG Potassium ABG Glucose Oxyhemoglobin Carboxyhemoglobin Sodium Potassium Chloride 97.0 L Carbon Dioxide 37 H BUN Creatinine < 0.2 L Glucose 129 H POC Glucose 109 H 142 H Calcium 8.3 L Ferritin Total Bilirubin Alkaline Phosphatase Lactate Dehydrogenase Troponin T C-Reactive Protein Total Protein Albumin Prealbumin LDL Cholesterol Direct Arterial Blood Glucose Arterial Blood Ionized Calcium Urine WBC (Auto) 03/14/20 03/15/20 03/15/20 23:57 05:46 08:06 WBC 19.7 H RBC 3.29 L Hgb 9.1 L Hct 28.0 L MCV MCH RDW 15.9 H Plt Count Lymph % (Auto) Lymph # (Auto) [place] # (Auto) Seg Neutrophils % Seg Neuts % (Manual) Lymphocytes % (Manual) Monocytes % (Manual) Basophils % (Manual) Seg Neutrophils # Seg Neutrophils # Man Lymphocytes # (Manual) Monocytes # (Manual) Eosinophils # (Manual) Basophils # (Manual) PT INR D-Dimer ABG pH POC ABG pCO2 POC ABG pO2 ABG pO2 ABG HCO3 ABG O2 Saturation ABG Base Excess ABG Hemoglobin ABG Oxyhemoglobin ABG Potassium ABG Glucose Oxyhemoglobin Carboxyhemoglobin Sodium Potassium Chloride Carbon Dioxide BUN Creatinine Glucose POC Glucose 157 H 118 H Calcium Ferritin Total Bilirubin Alkaline Phosphatase Lactate Dehydrogenase Troponin T C-Reactive Protein Total Protein Albumin Prealbumin LDL Cholesterol Direct Arterial Blood Glucose Arterial Blood Ionized Calcium Urine WBC (Auto) 03/15/20 03/15/20 03/15/20 08:06 12:44 18:09 WBC RBC Hgb Hct MCV MCH RDW Plt Count Lymph % (Auto) Lymph # (Auto) [place] # (Auto) Seg Neutrophils % Seg Neuts % (Manual) Lymphocytes % (Manual) Monocytes % (Manual) Basophils % (Manual) Seg Neutrophils # Seg Neutrophils # Man Lymphocytes # (Manual) Monocytes # (Manual) Eosinophils # (Manual) Basophils # (Manual) PT INR D-Dimer ABG pH POC ABG pCO2 POC ABG pO2 ABG pO2 ABG HCO3 ABG O2 Saturation ABG Base Excess ABG Hemoglobin ABG Oxyhemoglobin ABG Potassium ABG Glucose Oxyhemoglobin Carboxyhemoglobin Sodium 136 L Potassium Chloride 93.6 L Carbon Dioxide 37 H BUN Creatinine < 0.2 L Glucose 132 H POC Glucose 151 H 164 H Calcium Ferritin Total Bilirubin Alkaline Phosphatase Lactate Dehydrogenase Troponin T C-Reactive Protein Total Protein Albumin Prealbumin LDL Cholesterol Direct Arterial Blood Glucose Arterial Blood Ionized Calcium Urine WBC (Auto) 03/15/20 03/16/20 03/16/20 23:26 05:39 11:58 WBC RBC Hgb Hct MCV MCH RDW Plt Count Lymph % (Auto) Lymph # (Auto) [place] # (Auto) Seg Neutrophils % Seg Neuts % (Manual) Lymphocytes % (Manual) Monocytes % (Manual) Basophils % (Manual) Seg Neutrophils # Seg Neutrophils # Man Lymphocytes # (Manual) Monocytes # (Manual) Eosinophils # (Manual) Basophils # (Manual) PT INR D-Dimer ABG pH POC ABG pCO2 POC ABG pO2 ABG pO2 ABG HCO3 ABG O2 Saturation ABG Base Excess ABG Hemoglobin ABG Oxyhemoglobin ABG Potassium ABG Glucose Oxyhemoglobin Carboxyhemoglobin Sodium Potassium Chloride Carbon Dioxide BUN Creatinine Glucose POC Glucose 136 H 116 H 109 H Calcium Ferritin Total Bilirubin Alkaline Phosphatase Lactate Dehydrogenase Troponin T C-Reactive Protein Total Protein Albumin Prealbumin LDL Cholesterol Direct Arterial Blood Glucose Arterial Blood Ionized Calcium Urine WBC (Auto) 03/16/20 03/17/20 03/17/20 23:56 04:40 04:40 WBC 18.0 H RBC 3.33 L Hgb 9.5 L Hct 28.8 L MCV MCH RDW 16.4 H Plt Count 499 H Lymph % (Auto) Lymph # (Auto) [place] # (Auto) Seg Neutrophils % Seg Neuts % (Manual) 82.0 H Lymphocytes % (Manual) 8.0 L Monocytes % (Manual) Basophils % (Manual) Seg Neutrophils # Seg Neutrophils # Man 14.8 H Lymphocytes # (Manual) Monocytes # (Manual) 1.3 H Eosinophils # (Manual) Basophils # (Manual) 0.2 H PT INR D-Dimer ABG pH POC ABG pCO2 POC ABG pO2 ABG pO2 ABG HCO3 ABG O2 Saturation ABG Base Excess ABG Hemoglobin ABG Oxyhemoglobin ABG Potassium ABG Glucose Oxyhemoglobin Carboxyhemoglobin Sodium Potassium Chloride 97.7 L Carbon Dioxide 32 H BUN Creatinine < 0.2 L Glucose 114 H POC Glucose 131 H Calcium Ferritin Total Bilirubin Alkaline Phosphatase Lactate Dehydrogenase Troponin T C-Reactive Protein Total Protein Albumin Prealbumin LDL Cholesterol Direct Arterial Blood Glucose Arterial Blood Ionized Calcium Urine WBC (Auto) 03/18/20 03/18/20 03/18/20 00:21 05:21 11:55 WBC RBC Hgb Hct MCV MCH RDW Plt Count Lymph % (Auto) Lymph # (Auto) [place] # (Auto) Seg Neutrophils % Seg Neuts % (Manual) Lymphocytes % (Manual) Monocytes % (Manual) Basophils % (Manual) Seg Neutrophils # Seg Neutrophils # Man Lymphocytes # (Manual) Monocytes # (Manual) Eosinophils # (Manual) Basophils # (Manual) PT INR D-Dimer ABG pH POC ABG pCO2 POC ABG pO2 ABG pO2 ABG HCO3 ABG O2 Saturation ABG Base Excess ABG Hemoglobin ABG Oxyhemoglobin ABG Potassium ABG Glucose Oxyhemoglobin Carboxyhemoglobin Sodium Potassium Chloride Carbon Dioxide BUN Creatinine Glucose POC Glucose 124 H 138 H 119 H Calcium Ferritin Total Bilirubin Alkaline Phosphatase Lactate Dehydrogenase Troponin T C-Reactive Protein Total Protein Albumin Prealbumin LDL Cholesterol Direct Arterial Blood Glucose Arterial Blood Ionized Calcium Urine WBC (Auto) 03/18/20 03/18/20 03/19/20 17:03 23:58 05:24 WBC RBC Hgb Hct MCV MCH RDW Plt Count Lymph % (Auto) Lymph # (Auto) [place] # (Auto) Seg Neutrophils % Seg Neuts % (Manual) Lymphocytes % (Manual) Monocytes % (Manual) Basophils % (Manual) Seg Neutrophils # Seg Neutrophils # Man Lymphocytes # (Manual) Monocytes # (Manual) Eosinophils # (Manual) Basophils # (Manual) PT INR D-Dimer ABG pH POC ABG pCO2 POC ABG pO2 ABG pO2 ABG HCO3 ABG O2 Saturation ABG Base Excess ABG Hemoglobin ABG Oxyhemoglobin ABG Potassium ABG Glucose Oxyhemoglobin Carboxyhemoglobin Sodium Potassium Chloride Carbon Dioxide BUN Creatinine Glucose POC Glucose 128 H 128 H 115 H Calcium Ferritin Total Bilirubin Alkaline Phosphatase Lactate Dehydrogenase Troponin T C-Reactive Protein Total Protein Albumin Prealbumin LDL Cholesterol Direct Arterial Blood Glucose Arterial Blood Ionized Calcium Urine WBC (Auto) 03/19/20 03/19/20 03/19/20 08:05 08:05 11:56 WBC 16.8 H RBC 3.36 L Hgb 9.4 L Hct 28.8 L MCV MCH RDW 17.4 H Plt Count 567 H Lymph % (Auto) 7.8 L Lymph # (Auto) [place] # (Auto) 1.2 H Seg Neutrophils % 83.5 H Seg Neuts % (Manual) Lymphocytes % (Manual) Monocytes % (Manual) Basophils % (Manual) Seg Neutrophils # 14.1 H Seg Neutrophils # Man Lymphocytes # (Manual) Monocytes # (Manual) Eosinophils # (Manual) Basophils # (Manual) PT INR D-Dimer ABG pH POC ABG pCO2 POC ABG pO2 ABG pO2 ABG HCO3 ABG O2 Saturation ABG Base Excess ABG Hemoglobin ABG Oxyhemoglobin ABG Potassium ABG Glucose Oxyhemoglobin Carboxyhemoglobin Sodium Potassium Chloride Carbon Dioxide 36 H BUN Creatinine < 0.2 L Glucose 135 H POC Glucose 128 H Calcium Ferritin Total Bilirubin Alkaline Phosphatase Lactate Dehydrogenase Troponin T C-Reactive Protein Total Protein Albumin Prealbumin LDL Cholesterol Direct Arterial Blood Glucose Arterial Blood Ionized Calcium Urine WBC (Auto) 03/19/20 03/20/20 03/20/20 23:59 05:12 16:52 WBC RBC Hgb Hct MCV MCH RDW Plt Count Lymph % (Auto) Lymph # (Auto) [place] # (Auto) Seg Neutrophils % Seg Neuts % (Manual) Lymphocytes % (Manual) Monocytes % (Manual) Basophils % (Manual) Seg Neutrophils # Seg Neutrophils # Man Lymphocytes # (Manual) Monocytes # (Manual) Eosinophils # (Manual) Basophils # (Manual) PT INR D-Dimer ABG pH POC ABG pCO2 POC ABG pO2 ABG pO2 ABG HCO3 ABG O2 Saturation ABG Base Excess ABG Hemoglobin ABG Oxyhemoglobin ABG Potassium ABG Glucose Oxyhemoglobin Carboxyhemoglobin Sodium Potassium Chloride Carbon Dioxide BUN Creatinine Glucose POC Glucose 120 H 131 H 124 H Calcium Ferritin Total Bilirubin Alkaline Phosphatase Lactate Dehydrogenase Troponin T C-Reactive Protein Total Protein Albumin Prealbumin LDL Cholesterol Direct Arterial Blood Glucose Arterial Blood Ionized Calcium Urine WBC (Auto) 03/20/20 03/21/20 03/21/20 23:35 04:50 07:35 WBC 15.2 H RBC 3.39 L Hgb 9.4 L Hct 29.4 L MCV MCH RDW 17.6 H Plt Count 518 H Lymph % (Auto) Lymph # (Auto) [place] # (Auto) Seg Neutrophils % Seg Neuts % (Manual) 83.0 H Lymphocytes % (Manual) 10.0 L Monocytes % (Manual) Basophils % (Manual) 2.0 H Seg Neutrophils # Seg Neutrophils # Man 12.6 H Lymphocytes # (Manual) Monocytes # (Manual) Eosinophils # (Manual) Basophils # (Manual) 0.3 H PT INR D-Dimer ABG pH POC ABG pCO2 POC ABG pO2 ABG pO2 ABG HCO3 ABG O2 Saturation ABG Base Excess ABG Hemoglobin ABG Oxyhemoglobin ABG Potassium ABG Glucose Oxyhemoglobin Carboxyhemoglobin Sodium Potassium Chloride Carbon Dioxide BUN Creatinine Glucose POC Glucose 125 H 127 H Calcium Ferritin Total Bilirubin Alkaline Phosphatase Lactate Dehydrogenase Troponin T C-Reactive Protein Total Protein Albumin Prealbumin LDL Cholesterol Direct Arterial Blood Glucose Arterial Blood Ionized Calcium Urine WBC (Auto) 03/21/20 03/21/20 03/21/20 07:35 11:45 17:22 WBC RBC Hgb Hct MCV MCH RDW Plt Count Lymph % (Auto) Lymph # (Auto) [place] # (Auto) Seg Neutrophils % Seg Neuts % (Manual) Lymphocytes % (Manual) Monocytes % (Manual) Basophils % (Manual) Seg Neutrophils # Seg Neutrophils # Man Lymphocytes # (Manual) Monocytes # (Manual) Eosinophils # (Manual) Basophils # (Manual) PT INR D-Dimer ABG pH POC ABG pCO2 POC ABG pO2 ABG pO2 ABG HCO3 ABG O2 Saturation ABG Base Excess ABG Hemoglobin ABG Oxyhemoglobin ABG Potassium ABG Glucose Oxyhemoglobin Carboxyhemoglobin Sodium 136 L Potassium Chloride 97.7 L Carbon Dioxide 32 H BUN Creatinine < 0.2 L Glucose 103 H POC Glucose 126 H 120 H Calcium Ferritin Total Bilirubin Alkaline Phosphatase Lactate Dehydrogenase Troponin T C-Reactive Protein Total Protein Albumin Prealbumin LDL Cholesterol Direct Arterial Blood Glucose Arterial Blood Ionized Calcium Urine WBC (Auto) 03/22/20 03/22/20 03/22/20 05:09 06:34 06:34 WBC 17.5 H RBC 3.52 L Hgb 10.0 L Hct 30.7 L MCV MCH RDW 17.5 H Plt Count 499 H Lymph % (Auto) Lymph # (Auto) [place] # (Auto) Seg Neutrophils % Seg Neuts % (Manual) 80.0 H Lymphocytes % (Manual) 10.0 L Monocytes % (Manual) Basophils % (Manual) Seg Neutrophils # Seg Neutrophils # Man 14.0 H Lymphocytes # (Manual) Monocytes # (Manual) Eosinophils # (Manual) Basophils # (Manual) PT INR D-Dimer ABG pH POC ABG pCO2 POC ABG pO2 ABG pO2 ABG HCO3 ABG O2 Saturation ABG Base Excess ABG Hemoglobin ABG Oxyhemoglobin ABG Potassium ABG Glucose Oxyhemoglobin Carboxyhemoglobin Sodium Potassium Chloride 96.6 L Carbon Dioxide 38 H BUN Creatinine < 0.2 L Glucose 139 H POC Glucose 125 H Calcium Ferritin Total Bilirubin Alkaline Phosphatase Lactate Dehydrogenase Troponin T C-Reactive Protein Total Protein Albumin Prealbumin LDL Cholesterol Direct Arterial Blood Glucose Arterial Blood Ionized Calcium Urine WBC (Auto) 03/22/20 03/22/20 03/22/20 11:45 18:00 23:32 WBC RBC Hgb Hct MCV MCH RDW Plt Count Lymph % (Auto) Lymph # (Auto) [place] # (Auto) Seg Neutrophils % Seg Neuts % (Manual) Lymphocytes % (Manual) Monocytes % (Manual) Basophils % (Manual) Seg Neutrophils # Seg Neutrophils # Man Lymphocytes # (Manual) Monocytes # (Manual) Eosinophils # (Manual) Basophils # (Manual) PT INR D-Dimer ABG pH POC ABG pCO2 POC ABG pO2 ABG pO2 ABG HCO3 ABG O2 Saturation ABG Base Excess ABG Hemoglobin ABG Oxyhemoglobin ABG Potassium ABG Glucose Oxyhemoglobin Carboxyhemoglobin Sodium Potassium Chloride Carbon Dioxide BUN Creatinine Glucose POC Glucose 135 H 133 H Calcium Ferritin Total Bilirubin Alkaline Phosphatase Lactate Dehydrogenase Troponin T 0.113 H* C-Reactive Protein Total Protein Albumin Prealbumin LDL Cholesterol Direct Arterial Blood Glucose Arterial Blood Ionized Calcium Urine WBC (Auto) 03/23/20 03/23/20 03/23/20 01:47 06:21 07:57 WBC RBC Hgb Hct MCV MCH RDW Plt Count Lymph % (Auto) Lymph # (Auto) [place] # (Auto) Seg Neutrophils % Seg Neuts % (Manual) Lymphocytes % (Manual) Monocytes % (Manual) Basophils % (Manual) Seg Neutrophils # Seg Neutrophils # Man Lymphocytes # (Manual) Monocytes # (Manual) Eosinophils # (Manual) Basophils # (Manual) PT INR D-Dimer ABG pH POC ABG pCO2 POC ABG pO2 ABG pO2 ABG HCO3 ABG O2 Saturation ABG Base Excess ABG Hemoglobin ABG Oxyhemoglobin ABG Potassium ABG Glucose Oxyhemoglobin Carboxyhemoglobin Sodium Potassium Chloride Carbon Dioxide BUN Creatinine Glucose POC Glucose 130 H Calcium Ferritin Total Bilirubin Alkaline Phosphatase Lactate Dehydrogenase Troponin T 0.143 H* D 0.105 H* D C-Reactive Protein Total Protein Albumin Prealbumin LDL Cholesterol Direct Arterial Blood Glucose Arterial Blood Ionized Calcium Urine WBC (Auto) 03/23/20 03/24/20 03/24/20 12:02 05:33 07:15 WBC 18.0 H RBC Hgb 11.0 L Hct 34.0 L MCV MCH RDW 17.4 H Plt Count 520 H Lymph % (Auto) Lymph # (Auto) [place] # (Auto) Seg Neutrophils % Seg Neuts % (Manual) 88.0 H Lymphocytes % (Manual) 7.0 L Monocytes % (Manual) Basophils % (Manual) Seg Neutrophils # Seg Neutrophils # Man 15.8 H Lymphocytes # (Manual) Monocytes # (Manual) Eosinophils # (Manual) Basophils # (Manual) PT INR D-Dimer ABG pH POC ABG pCO2 POC ABG pO2 ABG pO2 ABG HCO3 ABG O2 Saturation ABG Base Excess ABG Hemoglobin ABG Oxyhemoglobin ABG Potassium ABG Glucose Oxyhemoglobin Carboxyhemoglobin Sodium Potassium Chloride Carbon Dioxide BUN Creatinine Glucose POC Glucose 137 H 112 H Calcium Ferritin Total Bilirubin Alkaline Phosphatase Lactate Dehydrogenase Troponin T C-Reactive Protein Total Protein Albumin Prealbumin LDL Cholesterol Direct Arterial Blood Glucose Arterial Blood Ionized Calcium Urine WBC (Auto) 03/24/20 03/24/20 03/24/20 07:15 11:22 23:30 WBC RBC Hgb Hct MCV MCH RDW Plt Count Lymph % (Auto) Lymph # (Auto) [place] # (Auto) Seg Neutrophils % Seg Neuts % (Manual) Lymphocytes % (Manual) Monocytes % (Manual) Basophils % (Manual) Seg Neutrophils # Seg Neutrophils # Man Lymphocytes # (Manual) Monocytes # (Manual) Eosinophils # (Manual) Basophils # (Manual) PT INR D-Dimer ABG pH POC ABG pCO2 POC ABG pO2 ABG pO2 ABG HCO3 ABG O2 Saturation ABG Base Excess ABG Hemoglobin ABG Oxyhemoglobin ABG Potassium ABG Glucose Oxyhemoglobin Carboxyhemoglobin Sodium Potassium Chloride 96.6 L Carbon Dioxide 38 H BUN Creatinine < 0.2 L Glucose 141 H POC Glucose 130 H 120 H Calcium Ferritin Total Bilirubin Alkaline Phosphatase Lactate Dehydrogenase Troponin T C-Reactive Protein Total Protein Albumin Prealbumin LDL Cholesterol Direct Arterial Blood Glucose Arterial Blood Ionized Calcium Urine WBC (Auto) 03/25/20 03/25/20 03/25/20 05:48 17:53 23:18 WBC RBC Hgb Hct MCV MCH RDW Plt Count Lymph % (Auto) Lymph # (Auto) [place] # (Auto) Seg Neutrophils % Seg Neuts % (Manual) Lymphocytes % (Manual) Monocytes % (Manual) Basophils % (Manual) Seg Neutrophils # Seg Neutrophils # Man Lymphocytes # (Manual) Monocytes # (Manual) Eosinophils # (Manual) Basophils # (Manual) PT INR D-Dimer ABG pH POC ABG pCO2 POC ABG pO2 ABG pO2 ABG HCO3 ABG O2 Saturation ABG Base Excess ABG Hemoglobin ABG Oxyhemoglobin ABG Potassium ABG Glucose Oxyhemoglobin Carboxyhemoglobin Sodium Potassium Chloride Carbon Dioxide BUN Creatinine Glucose POC Glucose 124 H 109 H 131 H Calcium Ferritin Total Bilirubin Alkaline Phosphatase Lactate Dehydrogenase Troponin T C-Reactive Protein Total Protein Albumin Prealbumin LDL Cholesterol Direct Arterial Blood Glucose Arterial Blood Ionized Calcium Urine WBC (Auto) 1103/26/20 03/26/20 05:21 08:49 08:49 WBC 19.7 H RBC Hgb 10.7 L Hct 33.5 L MCV MCH 27 L RDW 17.1 H Plt Count 480 H Lymph % (Auto) 5.7 L Lymph # (Auto) 1.1 L [place] # (Auto) 1.2 H Seg Neutrophils % 87.7 H Seg Neuts % (Manual) Lymphocytes % (Manual) Monocytes % (Manual) Basophils % (Manual) Seg Neutrophils # 17.2 H Seg Neutrophils # Man Lymphocytes # (Manual) Monocytes # (Manual) Eosinophils # (Manual) Basophils # (Manual) PT INR D-Dimer ABG pH POC ABG pCO2 POC ABG pO2 ABG pO2 ABG HCO3 ABG O2 Saturation ABG Base Excess ABG Hemoglobin ABG Oxyhemoglobin ABG Potassium ABG Glucose Oxyhemoglobin Carboxyhemoglobin Sodium Potassium Chloride 97.2 L Carbon Dioxide 36 H BUN Creatinine < 0.2 L Glucose 127 H POC Glucose 116 H Calcium Ferritin Total Bilirubin Alkaline Phosphatase Lactate Dehydrogenase Troponin T C-Reactive Protein Total Protein Albumin Prealbumin LDL Cholesterol Direct Arterial Blood Glucose Arterial Blood Ionized Calcium Urine WBC (Auto) 03/26/20 11:38 WBC RBC Hgb Hct MCV MCH RDW Plt Count Lymph % (Auto) Lymph # (Auto) [place] # (Auto) Seg Neutrophils % Seg Neuts % (Manual) Lymphocytes % (Manual) Monocytes % (Manual) Basophils % (Manual) Seg Neutrophils # Seg Neutrophils # Man Lymphocytes # (Manual) Monocytes # (Manual) Eosinophils # (Manual) Basophils # (Manual) PT INR D-Dimer ABG pH POC ABG pCO2 POC ABG pO2 ABG pO2 ABG HCO3 ABG O2 Saturation ABG Base Excess ABG Hemoglobin ABG Oxyhemoglobin ABG Potassium ABG Glucose Oxyhemoglobin Carboxyhemoglobin Sodium Potassium Chloride Carbon Dioxide BUN Creatinine Glucose POC Glucose 120 H Calcium Ferritin Total Bilirubin Alkaline Phosphatase Lactate Dehydrogenase Troponin T C-Reactive Protein Total Protein Albumin Prealbumin LDL Cholesterol Direct Arterial Blood Glucose Arterial Blood Ionized Calcium Urine WBC (Auto) Allied health notes reviewed: RT
[2020-03-27] MEDS: MORPHINE 2 MG/1 ML INJ IV PRN ×3 (00:43→20:24)
[2020-03-27 06:21] LABS: Basophils # (Auto) 0.1 K/mm3 (0.0-0.1); Basophils % (Auto) 0.4 % (0.0-1.8); Eosinophils # (Auto) 0.1 K/mm3 (0.0-0.4); Eosinophils % (Auto) 0.6 % (0.0-4.3); Hematocrit 31.4 % (35.5-45.6); Hemoglobin 10.1 gm/dl (11.8-15.2); Lymphocytes # (Auto) 1.5 K/mm3 (1.2-5.4); Mean Corpuscular HGB Conc 32 % (32-34); Mean Corpuscular Volume 86 fl (84-94); Monocytes # (Auto) 1.2 K/mm3 (0.0-0.8); Monocytes % (Auto) 6.3 % (0.0-7.3); Platelet Count 422 K/mm3 (140-440); Red Blood Count 3.65 M/mm3 (3.65-5.03); Red Cell Distribution Width 17.2 % (13.2-15.2)
[2020-03-27 06:38] LABS: Blood Urea Nitrogen 16 mg/dL (9-20); Calcium 8.9 mg/dL (8.4-10.2); Hemolysis Index 3
[2020-03-27 06:39] LABS: BUN/Creatinine Ratio 80
[2020-03-27] MEDS: GLYCOPYRROLATE 1 MG TAB PO SCH ×3 (09:20→20:25)
[2020-03-27] MEDS: LANSOPRAZOLE 30 MG SOLUTAB FEEDTUBE SCH (10:11)
[2020-03-27] MEDS: METOPROLOL TARTRATE 25 MG TAB PO SCH ×2 (10:11→21:27)
[2020-03-27] MEDS: TAMSULOSIN 0.4 MG CAP PO SCH (10:11)
[2020-03-27] MEDS: SCOPOLAMINE TRANSDERMAL PATCH 72 HR TD SCH (10:12)
--- NOTE | 2020-03-27 10:27 | Progress Note ---
Assessment and Plan Assessment and plan: --Acute hypoxic hypercapnic respiratory failure; Intubated on mechanical ventilation. Etiology secondary to sepsis, ALS, multifocal pneumonia (Covid negative). --ALS --Elevated D-dimers; CTA chest, lower extremity venous Doppler both are negative Lovenox DVT prophylaxis --Bilateral pneumonia; probably community-acquired Versus atypical, empiric antibiotics Rocephin and Zithromax Cultures, check pro calcitonin --Sepsis secondary to pneumonia Leukocytosis, tachycardia, pneumonia on chest x-ray --Elevated troponin; Serial cardiac enzymes, serial EKGs Echocardiogram, cardiology consult if needed --Hypokalemia; replaced with KCl Monitor levels --Hyponatremia; IV fluids Closely monitor electrolytes --DVT prophylaxis; Lovenox Admit to ICU for close observation 02/25/2020. CTA of the chest reveals no PE but does illustrate the bilateral pneumonia. Doppler ultrasound also negative for DVT. Blood cultures are pending. Await COVID-19 testing. Patient currently requiring BiPAP IPAP 24/E PAP 6 with FiO2 of 25%. Continue O2 and BiPAP as clinically indicated. ID and pulmonary consulted. 02/26/2020. Blood cultures are negative x48 hours and Covid testing negative as well. Continue antibiotics per ID recommendations for community-acquired bilateral pneumonia. Cardiology consultation for elevated troponin. Check echocardiogram. 02/27/2020. Events of yesterday noted with asystole following V. fib arrest. Patient currently on AC mode rate 20, tidal volume 400, FiO2 50% and a PEEP of 6. Follow-up echocardiogram for elevated troponin. Cardiology suspects NSTEMI Type 2 in the setting of acute resp failure. Chest CTA and BLE Dopplers neg. we will discontinue Decadron given the Covid PCR is negative. 02/28/2020. I spoke with the sister Felisa Eli who is the power of loan originator regarding advanced directives and she instructed me that she would like to continue with aggressive care at this time. I informed her of the guarded prognosis and high mortality/morbidity and she voiced understanding. Patient currently with AC mode ventilation rate 18, tidal volume 400, FiO2 40% and a PEEP of 6. Continue antibiotics for pneumonia. ID previously consulted. Also consult neurology with regards to ALS. 02/29/2020; patient is intubated and on CPAP patient is alert and oriented. Patient has ALS. Dr. Álvarez spoke with his sister and she wants aggressive care. Continue antibiotics for pneumonia. Neurology consulted for ALS. Prognosis poor 03/01/2020; patient is intubated and on CPAP, patient is alert and oriented. I spoke with his 2 sisters about the management plan. 03/02/2020; patient is intubated and on CPAP. Patient was alert and oriented. I spoke with Dr. mohr and he thinks patient may need mechanical ventilation, likely his disease progressed. Dr. Flowers did debridement this morning. 03/03/2020; patient is intubated and on CPAP, patient was on trilogy and BiPAP at home. Patient has ALS. on spontaneous breathing trial. Patient is alert and oriented but quadriplegic. Patient has severe bilateral pneumonia and is on cefepime and Vanco, ID is following. Patient has sacral decubitus ulcer and debridement was done by Dr. Flowers and there is no osteomyelitis. 03/05. Patient still on broad-spectrum antibiotics. Status post sacral de cubitus ulcer debridements-no osteomyelitis. Patient is on AC 25/400/30% PEEP 5. No blood gas results today. 03/06. Plan for tracheostomy by surgery. Still remains intubated. Labs reviewed-sodium 150. Started on free water 200 every 8hr. trend sodium. 03/07: s/p trach placement today, patient placed back on mechanical ventilation with trach. Plan to resume tube feeding with NG tube. Continue to monitor vitals, monitor BMP. 03/08: Patient noted to have distended abdomen with low urinary output. Obtain bladder scan rule out urine retention, UA and urine culture, continue to follow clinically. 03/09: Patient noted to have low blood pressure with SBP as low as 70s. Ordered for 500 mils normal saline bolus. CT abdomen showed bladder outlet obstruction, urology consulted. 03/10: placed on drake by urology o/n, improved urine outpt. cont to monitor BMP. resuded TF - cont free water with TF. wean off from vent as tolerated. 03/11: Vitals stable. cont TF, wean off from vent as tolerated. start on 1/2 NS for hypernatremia - follow BMP 03/12: wean off vent as tolerated, plan for speech eval, cont Tf for now, cont iv fluid 03/13: unable to wean off from vent, unable to do speech therapy eval. will need PEG tube, cont supportive care for now, cont NG tube feeding 03/14: consulted GI for PEg placemnet, cont supportive care. remains on vent at night 03/15: Discussed with GI, plan for PEG tube placement possibly tomorrow. Continue supportive care and wean off from vent as tolerated. Hold Lovenox dose tonight. 03/16: family didnot consent for PEG placement yesterday. I spoke with the daughter today and she is now agreeable for PEG tube. I explained the necessity of the procedure with RN to the patient also and he nodded started on tube feeding, for the procedure. will cont supportive care. planned for PEG tube placement tomorrow. 03/17: s/p PEG placement today, patient tolerated well, cont supportive care 03/18: Started on tube feeding with new PEG tube, continue to wean off vent as tolerated 03/19: cont to monitor with supportive care, wean off vent as tolerated 03/20: Continue to wean off vent as tolerated -but failing weaning trial. Still requiring vent support at night. Currently on PEG tube for tube feed. 03/21. Pt with PSV trials with FiO@ 30%, PEEP 6, PS 10. Currently on PEG tube for tube feed. 03/22/2020. Continue PSV trials per pulmonary. Continue bronchodilators. Patient tolerating tube feedings. Continue Robinul for secretion control. 03/23/2020. Continue PSV trials per pulmonary. Continue bronchodilators. Continue Scopolamine and Robinul for secretion control. Trach care/airway management. Mobility protocols for pressure ulcer prophylaxis. LTAC evaluation per case management 03/24/2020. Continue PSV trials with current settings pressure support 10, PEEP 6 and FiO2 30%. Continue bronchodilators/nebulizer. Continue Scopolamine and Robinul for secretion control. Trach care/airway management. Mobility protocols for pressure ulcer prophylaxis. LTAC evaluation per case management 03/25/2020. Pulmonary to proceed with T-piece trials today. Continue bronchodilators/nebulizer. Continue Scopolamine and Robinul for secretion control. Trach care/airway management. Mobility protocols for pressure ulcer prophylaxis. 03/26/2020. Patient currently with PSV 10/6 at FiO2 of 30%. Continue weaning and T-piece trials per protocol. Continue bronchodilators/nebulizer. Continue Scopolamine and Robinul for secretion control. Trach care/airway management. Mobility protocols for pressure ulcer prophylaxis. Continue tube feeding with aspiration precautions. 03/27/2020. Patient currently with PSV 10/6 at FiO2 of 30%. Continue weaning and T-piece trials per protocol. Continue bronchodilators/nebulizer. Continue Scopolamine and Robinul for secretion control. Trach care/airway management. Mobility protocols for pressure ulcer prophylaxis. Continue tube feeding with aspiration precautions. The high probability of a clinically significant, sudden or life threatening deterioration of the [cardiac and respiratory] system(s) required my full and direct attention, intervention and personal management. The aggregate critical care time was [32] minutes. 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 Patient was on a trilogy machine for breathing 18/11. EMS arrived, patient had O2 sats in the 80s. EMS attempted to place patient on their CPAP machine, however patient did not tolerate. Patient was admitted to the ICU with diagnosis of acute hypoxic respiratory failure and placed on BiPAP. Patient initially tolerated but later deteriorated with respiratory status. Therefore, patient was intubated on 02/26/2020 at 1500. Patient now on mechanical ventilation in the ICU. Hospitalist Physical - Constitutional Vitals: Temp Pulse Resp BP Pulse Ox 98.8 F 106 H 20 113/78 100 03/27/20 08:00 03/27/20 10:11 03/27/20 09:00 03/27/20 10:11 03/27/20 09:00 General appearance: Present: mild distress, other (Intubated on mechanical ventilation) - EENT Eyes: Present: PERRL, EOM intact ENT: hearing intact, clear oral mucosa, dentition normal - Neck Neck: Present: supple, normal ROM - Respiratory Respiratory effort: normal Respiratory: bilateral: CTA - Cardiovascular Rhythm: regular Heart Sounds: Present: S1 & S2. Absent: gallop, rub - Extremities Extremities: no ischemia, No edema, Full ROM - Abdominal General gastrointestinal: soft, non-tender, non-distended, normal bowel sounds - Integumentary Integumentary: Present: clear, warm, dry - Neurologic Neurologic: CNII-XII intact, moves all extremities HEART Score - HEART Score Troponin: Troponin T 0.105 ng/mL (0.00-0.029) H* D 03/23/20 07:57 Results - Labs CBC & Chem 7: 03/27/20 05:59 03/27/20 05:59 Labs: Laboratory Last Values WBC 18.6 K/mm3 (4.5-11.0) H 03/27/20 05:59 RBC 3.65 M/mm3 (3.65-5.03) 03/27/20 05:59 Hgb 10.1 gm/dl (11.8-15.2) L 03/27/20 05:59 Hct 31.4 % (35.5-45.6) L 03/27/20 05:59 MCV 86 fl (84-94) 03/27/20 05:59 MCH 28 pg (28-32) 03/27/20 05:59 MCHC 32 % (32-34) 03/27/20 05:59 RDW 17.2 % (13.2-15.2) H 03/27/20 05:59 Plt Count 422 K/mm3 (140-440) 03/27/20 05:59 Lymph % (Auto) 8.0 % (13.4-35.0) L 03/27/20 05:59 [place] % (Auto) 6.3 % (0.0-7.3) 03/27/20 05:59 Eos % (Auto) 0.6 % (0.0-4.3) 03/27/20 05:59 Baso % (Auto) 0.4 % (0.0-1.8) 03/27/20 05:59 Lymph # (Auto) 1.5 K/mm3 (1.2-5.4) 03/27/20 05:59 [place] # (Auto) 1.2 K/mm3 (0.0-0.8) H 03/27/20 05:59 Eos # (Auto) 0.1 K/mm3 (0.0-0.4) 03/27/20 05:59 Baso # (Auto) 0.1 K/mm3 (0.0-0.1) 03/27/20 05:59 Add Manual Diff Complete 03/24/20 07:15 Total Counted 100 03/24/20 07:15 Seg Neutrophils % 84.7 % (40.0-70.0) H 03/27/20 05:59 Seg Neuts % (Manual) 88.0 % (40.0-70.0) H 03/24/20 07:15 Band Neutrophils % 0 % 03/24/20 07:15 Lymphocytes % (Manual) 7.0 % (13.4-35.0) L 03/24/20 07:15 Reactive Lymphs % (Man) 0 % 03/24/20 07:15 Monocytes % (Manual) 1.0 % (0.0-7.3) 03/24/20 07:15 Eosinophils % (Manual) 2.0 % (0.0-4.3) 03/24/20 07:15 Basophils % (Manual) 0 % (0.0-1.8) 03/24/20 07:15 Metamyelocytes % 1.0 % 03/24/20 07:15 Myelocytes % 1.0 % 03/24/20 07:15 Promyelocytes % 0 % 03/24/20 07:15 Blast Cells % 0 % 03/24/20 07:15 Nucleated RBC % Not Reportable 03/24/20 07:15 Seg Neutrophils # 15.8 K/mm3 (1.8-7.7) H 03/27/20 05:59 Seg Neutrophils # Man 15.8 K/mm3 (1.8-7.7) H 03/24/20 07:15 Band Neutrophils # 0.0 K/mm3 03/24/20 07:15 Lymphocytes # (Manual) 1.3 K/mm3 (1.2-5.4) 03/24/20 07:15 Abs React Lymphs (Man) 0.0 K/mm3 03/24/20 07:15 Monocytes # (Manual) 0.2 K/mm3 (0.0-0.8) 03/24/20 07:15 Eosinophils # (Manual) 0.4 K/mm3 (0.0-0.4) 03/24/20 07:15 Basophils # (Manual) 0.0 K/mm3 (0.0-0.1) 03/24/20 07:15 Metamyelocytes # 0.2 K/mm3 03/24/20 07:15 Myelocytes # 0.2 K/mm3 03/24/20 07:15 Promyelocytes # 0.0 K/mm3 03/24/20 07:15 Blast Cells # 0.0 K/mm3 03/24/20 07:15 WBC Morphology Not Reportable 03/24/20 07:15 Hypersegmented Neuts Not Reportable 03/24/20 07:15 Hyposegmented Neuts Not Reportable 03/24/20 07:15 Hypogranular Neuts Not Reportable 03/24/20 07:15 Smudge Cells Not Reportable 03/24/20 07:15 Toxic Granulation Not Reportable 03/24/20 07:15 Toxic Vacuolation Not Reportable 03/24/20 07:15 Dohle Bodies Not Reportable 03/24/20 07:15 Pelger-Huet Anomaly Not Reportable 03/24/20 07:15 Robert Rods Not Reportable 03/24/20 07:15 Platelet Estimate Consistent w auto 03/24/20 07:15 Clumped Platelets Not Reportable 03/24/20 07:15 Plt Clumps, EDTA Not Reportable 03/24/20 07:15 Large Platelets Not Reportable 03/24/20 07:15 Giant Platelets Not Reportable 03/24/20 07:15 Platelet Satelliting Not Reportable 03/24/20 07:15 Plt Morphology Comment Not Reportable 03/24/20 07:15 RBC Morphology Not Reportable 03/24/20 07:15 Dimorphic RBCs Not Reportable 03/24/20 07:15 Polychromasia Few 03/24/20 07:15 Hypochromasia Not Reportable 03/24/20 07:15 Poikilocytosis Not Reportable 03/24/20 07:15 Anisocytosis Few 03/24/20 07:15 Microcytosis Not Reportable 03/24/20 07:15 Macrocytosis Not Reportable 03/24/20 07:15 Spherocytes Not Reportable 03/24/20 07:15 Pappenheimer Bodies Not Reportable 03/24/20 07:15 Sickle Cells Not Reportable 03/24/20 07:15 Target Cells Not Reportable 03/24/20 07:15 Tear Drop Cells Not Reportable 03/24/20 07:15 Ovalocytes Not Reportable 03/24/20 07:15 Stomatocytes Few 03/17/20 04:40 Helmet Cells Not Reportable 03/24/20 07:15 Gregory-Ensign Bodies Not Reportable 03/24/20 07:15 [place] Rings Not Reportable 03/24/20 07:15 [place] Cells Not Reportable 03/24/20 07:15 Bite Cells Not Reportable 03/24/20 07:15 Crenated Cell Not Reportable 03/24/20 07:15 Elliptocytes Not Reportable 03/24/20 07:15 Acanthocytes (Spur) Not Reportable 03/24/20 07:15 Rouleaux Not Reportable 03/24/20 07:15 Hemoglobin C Crystals Not Reportable 03/24/20 07:15 Schistocytes Not Reportable 03/24/20 07:15 Malaria parasites Not Reportable 03/24/20 07:15 [place] Bodies Not Reportable 03/24/20 07:15 Hem Pathologist Commnt No 03/24/20 07:15 PT 15.6 Sec. (12.2-14.9) H 02/24/20 09:19 INR 1.21 (0.87-1.13) H 02/24/20 09:19 APTT 25.4 Sec. (24.2-36.6) 02/24/20 09:19 D-Dimer 1311.96 ng/mlDDU (0-234) H 02/24/20 09:19 ABG pH 7.371 (7.320-7.450) 03/08/20 12:34 POC ABG pCO2 63.1 mmHg (32.0-48.0) H 03/08/20 12:34 ABG pCO2 60.1 mm Hg 03/06/20 04:34 POC ABG pO2 90.5 mmHg (83-108) 03/08/20 12:34 ABG pO2 88.6 mm Hg (80.0-90.0) 03/06/20 04:34 POC ABG HCO3 35.7 03/08/20 12:34 ABG HCO3 37.9 mmol/L (20.0-26.0) H 03/06/20 04:34 ABG O2 Saturation 97.0 % (95.0-99.0) 03/06/20 04:34 ABG O2 Content 14.3 (0.0-44) 03/06/20 04:34 POC ABG Base Excess 8.7 03/08/20 12:34 ABG Base Excess 11.4 mmol/L (-2.0-3.0) H 03/06/20 04:34 ABG Hemoglobin 10.9 (12.0-17.5) L 03/08/20 12:34 ABG Oxyhemoglobin 95.9 (94-98) 03/08/20 12:34 ABG Carboxyhemoglobin 1.7 % (0.0-5.0) 03/06/20 04:34 ABG Methemoglobin 0.3 (0.0-1.5) 03/08/20 12:34 ABG Sodium 143.6 mmol/L (136.0-145.0) 03/08/20 12:34 ABG Potassium 3.8 mmol/L (3.40-4.50) 03/08/20 12:34 ABG Chloride 102.0 mmol/L (98-107) 03/08/20 12:34 ABG Glucose 176 mg/dL (65-95) H 03/08/20 12:34 Oxyhemoglobin 94.7 % (95.0-99.0) L 03/06/20 04:34 Carboxyhemoglobin 0.7 (0.5-1.5) 03/08/20 12:34 FiO2 30 03/08/20 12:34 Sodium 140 mmol/L (137-145) 03/27/20 05:59 Potassium 4.3 mmol/L (3.6-5.0) 03/27/20 05:59 Chloride 98.3 mmol/L (98-107) 03/27/20 05:59 Carbon Dioxide 34 mmol/L (22-30) H 03/27/20 05:59 Anion Gap 12 mmol/L 03/27/20 05:59 BUN 16 mg/dL (9-20) 03/27/20 05:59 Creatinine < 0.2 mg/dL (0.8-1.3) L 03/27/20 05:59 Estimated GFR > 60 ml/min 03/27/20 05:59 BUN/Creatinine Ratio 80 % 03/27/20 05:59 Glucose 127 mg/dL (75-100) H 03/27/20 05:59 POC Glucose 129 mg/dL (70-105) H 03/27/20 05:41 Lactic Acid 1.00 mmol/L (0.7-2.0) 02/24/20 12:07 Calcium 8.9 mg/dL (8.4-10.2) 03/27/20 05:59 Phosphorus 3.30 mg/dL (2.5-4.5) 03/20/20 14:18 Magnesium 2.00 mg/dL (1.7-2.3) 03/20/20 14:18 Ferritin 1715.0 ng/mL (30.0-300.0) H 02/24/20 10:01 Total Bilirubin 0.60 mg/dL (0.1-1.2) 03/08/20 06:43 AST 34 units/L (5-40) 03/08/20 06:43 ALT 14 units/L (7-56) 03/08/20 06:43 Alkaline Phosphatase 56 units/L (35-129) 03/08/20 06:43 Lactate Dehydrogenase 303 units/L (91-180) H 02/24/20 09:19 Total Creatine Kinase 101 units/L (55-170) 02/24/20 19:35 CK-MB (CK-2) 3.5 ng/mL (0.0-4.0) 02/24/20 19:35 CK-MB (CK-2) Rel Index 3.4 (0-4) 02/24/20 19:35 Troponin T 0.105 ng/mL (0.00-0.029) H* D 03/23/20 07:57 C-Reactive Protein 4.70 mg/dL (0.00-1.30) H 02/28/20 11:05 NT-Pro-B Natriuret Pep 48.30 pg/mL (0-900) 02/24/20 09:19 Total Protein 5.9 g/dL (6.3-8.2) L 03/08/20 06:43 Albumin 3.2 g/dL (3.9-5) L 03/08/20 06:43 Albumin/Globulin Ratio 1.2 % 03/08/20 06:43 Prealbumin 0.090 g/L (0.200-0.400) L 02/28/20 12:54 Triglycerides 34 mg/dL (2-149) 03/22/20 18:00 Cholesterol 104 mg/dL (50-199) 03/22/20 18:00 LDL Cholesterol Direct 54 mg/dL (50-130) 03/22/20 18:00 HDL Cholesterol 40 mg/dL (40-59) 03/22/20 18:00 Cholesterol/HDL Ratio 2.60 % 03/22/20 18:00 Procalcitonin 0.16 ng/mL (<0.15) 03/09/20 08:35 Arterial Blood Glucose 176 mg/dL (65-95) H 03/08/20 12:34 Arterial Blood Ionized Calcium 4.5 mg/dL (4.6-5.3) L 03/08/20 12:34 Urine Color Yellow (Yellow) 03/08/20 08:57 Urine Turbidity Clear (Clear) 03/08/20 08:57 Urine pH 6.0 (5.0-7.0) 03/08/20 08:57 Ur Specific [place] 1.017 (1.003-1.030) 03/08/20 08:57 Urine Protein <15 mg/dl mg/dL (Negative) 03/08/20 08:57 Urine Glucose (UA) Neg mg/dL (Negative) 03/08/20 08:57 Urine Ketones Neg mg/dL (Negative) 03/08/20 08:57 Urine Blood Neg (Negative) 03/08/20 08:57 Urine Nitrite Neg (Negative) 03/08/20 08:57 Urine Bilirubin Neg (Negative) 03/08/20 08:57 Urine Urobilinogen < 2.0 mg/dL (<2.0) 03/08/20 08:57 Ur Leukocyte Esterase Neg (Negative) 03/08/20 08:57 Urine WBC (Auto) 10.0 /HPF (0.0-6.0) H 03/08/20 08:57 Urine RBC (Auto) 13.0 /HPF (0.0-6.0) 03/08/20 08:57 U Epithel Cells (Auto) < 1.0 /HPF (0-13.0) 03/08/20 08:57 Urine Bacteria (Auto) 2+ /HPF (Negative) 03/08/20 08:57 Urine Mucus Few /HPF 03/08/20 08:57 Urine Yeast (Budding) 3+ /HPF 03/08/20 08:57 Vancomycin Trough 8.0 ug/mL (5.0-20.0) 03/04/20 08:59 Coronavirus (PCR) Negative (Negative) 02/25/20 09:03 - Diagnostic Impressions Diagnostic Impressions: Echocardiogram 02/26/20 10:41 Transthoracic Echocardiogram Indication: Elevated Trop BP: 116/75 HR: 85 Conclusions *Global left ventricular wall motion and contractility are within normal limits. *The estimated ejection fraction is 50-55%. *Abnormal left ventricular diastolic filling is observed, consistent with impaired relaxation. *There is no pericardial effusion. Findings Left Ventricle: The left ventricular chamber size is normal. Global left ventricular wall motion and contractility are within normal limits. Global left ventricular systolic function is normal. The estimated ejection fraction is 50-55%. Abnormal left ventricular diastolic filling is observed, consistent with impaired relaxation. Left Atrium: The left atrial chamber size is normal. Right Ventricle: The right ventricular cavity size is normal. Right Atrium: The right atrial cavity size is normal. Aortic Valve: Mild aortic leaflet calcification is visualized. There is no evidence of aortic regurgitation. Mitral Valve: The mitral valve leaflets are mildly thickened. There is no evidence of mitral regurgitation. Tricuspid Valve: The tricuspid valve leaflets are normal. There is trace tricuspid regurgitation. The right ventricular systolic pressure is calculated at 29 mmHg. Pulmonic Valve: The pulmonic valve is not well visualized. Pericardium: There is no pericardial effusion. Aorta: The aorta appears normal. Venous: The inferior vena cava is dilated. There is less than 50% respiratory change in the inferior vena cava dimension. Measurements Chambers 2D Name Value Normal Range IVSd (2D) 0.97 cm (0.6 - 1.1) LVPWd (2D) 0.93 cm (0.6 - 1.1) LVIDd (2D) 4 cm (3.7 - 5.6) LVIDs (2D) 2.73 cm (2 - 3.8) LV FS (2D) 31.67 % - EF Teichholz (2D) 60.23 % - Ao root diameter (2D) 3.51 cm (2 - 3.7) Volumes/Mass Name Value Normal Range LA ESV SP 4CH (A/L) 8.43 ml - LA ESV SP 2CH (A/L) 18.89 ml - LA ESV BP (A/L) 13.02 ml - LA ESV BP (A/L) index 8.8 ml/m2 - LA ESV SP 4CH (MOD) 7.22 ml - LA ESV SP 2CH (MOD) 18.15 ml - LA ESV BP (MOD) 11.47 ml - LA ESV BP (MOD) index 7.75 ml/m2 - Diastolic/Systolic Function Name Value Normal Range MV E-wave Vmax 0.51 m/sec - MV deceleration time 180.22 msec - MV A-wave Vmax 0.62 m/sec - MV E:A ratio 0.82 ratio - Aortic Valve Name Value Normal Range AV Vmax 1.17 m/sec - AV VTI 19.71 cm - AV peak gradient 5.44 mmHg - AV mean gradient 3.38 mmHg - LVOT diameter 2.26 cm - LVOT Vmax 0.89 m/sec - LVOT VTI 13.72 cm - LVOT peak gradient 3.17 mmHg - LVOT mean gradient 1.67 mmHg - SV LVOT 55.03 ml - SHARAD (continuity Vmax) 3.06 cm2 - SHARAD (continuity VTI) 2.79 cm2 - Tricuspid Valve Name Value Normal Range TR Vmax 2.3 m/sec - TR peak gradient 21 mmHg - RAP 8 mmHg - RVSP 29 mmHg - IVC diameter 2.59 cm (1.2 - 2.3) Pulmonic Valve/Qp:Qs Name Value Normal Range PV acceleration time 68.51 msec - Drake/IV: Voiding Method Indwelling Catheter IV Catheter Type [Right Hand] Peripheral IV IV Catheter Type [Left Wrist] Peripheral IV IV Catheter Type [Right Peripheral IV Forearm] IV Catheter Type [Right Triple Lumen Cath Internal Jugular] IV Catheter Type [Left Forearm INT / Saline Lock ] IV Catheter Type [Right Triple Lumen Cath Femoral] IV Catheter Type [Right INT / Saline Lock Antecubital] Active Medications - Current Medications Current Medications: Generic Name Dose Route Start Last Admin Trade Name Freq PRN Reason Stop Dose Admin Acetaminophen 650 mg 02/24/20 15:13 03/08/20 00:10 Tylenol PO 650 mg Q4H PRN Administration Pain, Mild (1-3) Albuterol 2.5 mg 02/24/20 15:13 Proventil IH Q4HRT PRN Shortness Of Breath Lipase/Protease/Amylase 1 each 02/26/20 11:[address] 10,500 Unit FEEDTUBE PRN PRN For Clogged Feeding Tube Bisacodyl 10 mg 03/12/20 18:00 03/15/20 17:50 Dulcolax [place] 10 mg QDAY PRN Administration Bowel Movement Enoxaparin Sodium 40 mg 03/20/20 22:00 03/26/20 21:27 Enoxaparin SUB-Q 40 mg QDAY@2200 ALISA Administration Protocol Glycopyrrolate 2 mg 03/26/20 08:00 03/26/20 20:25 Robinul PO 2 mg TID ALISA Administration Lansoprazole 30 mg 02/28/20 10:00 03/27/20 10:11 Prevacid Solutab FEEDTUBE 30 mg QDAY ALISA Administration Metoprolol Tartrate 12.5 mg 02/24/20 22:00 03/27/20 10:11 Metoprolol PO 12.5 mg BID ALISA Administration Morphine Sulfate 2 mg 02/29/20 16:42 03/27/20 00:43 Morphine IV 2 mg Q4H PRN Administration Pain, Moderate (4-6) Scopolamine 1 each 03/03/20 14:00 03/27/20 10:12 Transderm-Scop TD 1 each Q3D ALISA Administration Simple Syrup 15 ml 02/26/20 11:16 Simple Syrup FEEDTUBE PRN PRN Hypoglycemia Simple Syrup 30 ml 02/26/20 11:16 Simple Syrup FEEDTUBE PRN PRN Hypoglycemia Sodium Bicarbonate 325 mg 02/26/20 11:16 Sodium Bicarbonate FEEDTUBE PRN PRN For Clogged Feeding Tube Tamsulosin HCl 0.4 mg 03/09/20 18:00 03/27/20 10:11 Flomax PO 0.4 mg QDAY ALIAS Administration Zolpidem Tartrate 5 mg 03/24/20 14:53 03/26/20 21:26 Ambien PO 5 mg QHS PRN Administration Sleep Nutrition/Malnutrition Assess - Dietary Evaluation Nutrition/Malnutrition Findings: Nutrition Notes Start: 02/26/20 10:40 Freq: Status: Active Protocol: Document 03/21/20 13:36 LP (Rec: 03/21/20 13:41 LP [id number]) Nutrition Notes Initial or Follow up Reassessment Current Diagnosis Decubitus(Pressure Ulcer), Sepsis,Respiratory Failure Other Pertinent Diagnosis COVID-19 (-), ALS, pneumonia, Hip/buttock PU Current Diet Vital AF 1.2 at 75ml/hr (goal rate) Labs/Tests Na 136 Pertinent Medications Reviewed Height 6 ft Weight 66.4 kg [place] Body Weight (kg) 80.90 BMI 19.8 Weight Status Appropriate Subjective/Other Information Pt continues tolerating TF at goal rate. PEG placed. Percent of energy/protein needs met: 100%/100% Burn Absent Trauma Absent GI Symptoms None Skin Integrity/Comment Pressure Ulcer Stage 2 Current % PO Negligible Minimum of two criteria Yes Body Fat Depletion Mild depletion (non-severe) Muscle Mass Mild Depletion (non-severe) Reduced Traffic Technician Strength Measurably Reduced (severe) #3 Nutrition Diagnosis Malnutrition Diagnosis Progress(for reassessment Continues documentation) #2 Nutrition Diagnosis Inadequate oral intake Diagnosis Progress(for reassessment Continues documentation) #1 Nutrition Diagnosis Increased nutrient needs ( specify in comment below) Diagnosis Progress(for reassessment Continues documentation) Is patient on ventilator? Yes Is Patient Ambulatory and/or Out of Bed No REE-([facility]-confined to bed) 1825.272 Kcal/Kg value to use for calculation 35 Approximate Energy Requirements Using 2324 kcal/Kg Calculation Used for Recommendations Kcal/kg Additional Notes Protein needs: 80-133 g (1.2-2 g/ kg ABW) Fluid: 1ml/kcal Nutrition Intervention Change Diet Order: Continue TF Nutrition Support: Vital AF 1.2 at 75ml/hr. Flush 200ml q4h For hyponatremia, flush 150 mL q4h Kcal 2,160 Protein (gm) 135 Fluid (mL) 1,460 Add Supplement/Snack (indicate name/kcal Will BID /protein ) Provides kCal: 190 Provides Protein (gm) 5 Goal #1 Meet at least 80% of energy and protein needs via TF Goal #2 Wound healing Anticipated Discharge Needs: Unable to determine at this time Follow-Up By: 03/28/20 Additional Comments Follow for stable TF
--- NOTE | 2020-03-27 15:28 | Progress Note ---
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 He states he wants to go home, however his girlfriend is unable to take him at this time. She feels she needs more help. His family is discussing discharge planning- plan is to discharge home with home hospice and vent - continue daytime PSV as tolerated -He is not tolerating ATP trials and may end up vent dependant. -Continue to attempt ATP trials as tolerated - ABG, CXR as clinically indicated - continue Robinul & scopolamine for secretion control - Keep K at 4, Mg at 2 and Phos at 2.5 to optimize respiratory muscle function - wound care per RN/WCN, off loading, frequent turning, mobility per facility protocol - wean supplemental oxygen for target O2 sats > 92% - VAP bundle addressed, aspiration precautions, HOB >40 - continue lung protective strategies - continue bronchodilators with pulmonary hygiene per RT - s/p empiric anti-infectives per ID recs (Rocephin and Zithromax) - enteral nutrition at goal rate as tolerated - accuchecks with glycemic control per SSI (While critically ill target blood glucose of 140-180 mg/dL; avoid hypoglycemia) - avoid nephrotoxins, renal dose all medications - avoid benzodiazepines, reduce the possibility of delirium - prn analgesia per CPOT score - Maintenance of sleep-wake cycle, avoid delirium -Continue stress ulcer and VTE prophylaxis (Famotidine and Enoxaparin) -Reardon in place for urinary retention and sacral decubitus ulcer - PT/OT/ROM exercises - Monitor hemodynamics closely - continue other care per attending / other consultants - discharge planning ongoing concurrently CONDITION: FAIR PROGNOSIS: GUARDED CODE STATUS: FULL CODE Subjective Date of service: 03/27/20 Principal diagnosis: Ac on Ch Hypercapnic & hypoxemic Resp Failure; Severe Sepsis; Jamar PNA; ALS Interval history: Patient is seen today for: Acute on Chronic Hypercapnic & hypoxemic Respiratory Failure; Severe Sepsis with Shock; Bilateral Pneumonia (Possible aspiration); History of ALS on Trilogy; Acute toxic metabolic encephalopathy Seen and examined at bedside; 24hour events reviewed; nursing and respiratory care staff consulted; no adverse overnight events reported to me; resting in bed; remains on MVS; s/p trach and PEG Tolerating tube feedings. Tolerating PSV at the bedside No fevers,no vomiting. Slept well last night. Objective Vital Signs - 12hr 03/27/20 03/27/20 03/27/20 03:30 03:32 03:46 Temperature Pulse Rate 111 H 106 H 108 H Pulse Rate [ From Monitor] Respiratory 17 24 Rate Blood Pressure 106/72 103/97 106/72 O2 Sat by Pulse 99 Oximetry 03/27/20 03/27/20 03/27/20 04:00 04:16 04:30 Temperature 98.7 F Pulse Rate 114 H 115 H 107 H Pulse Rate [ 114 H From Monitor] Respiratory 21 20 16 Rate Blood Pressure 110/70 110/70 105/73 O2 Sat by Pulse 97 Oximetry 03/27/20 03/27/20 03/27/20 04:46 05:00 05:16 Temperature Pulse Rate 104 H 99 H 107 H Pulse Rate [ From Monitor] Respiratory 13 13 13 Rate Blood Pressure 105/73 93/64 93/64 O2 Sat by Pulse Oximetry 03/27/20 03/27/20 03/27/20 05:30 05:46 06:00 Temperature Pulse Rate 110 H 101 H 105 H Pulse Rate [ From Monitor] Respiratory 17 12 17 Rate Blood Pressure 110/69 110/69 100/71 O2 Sat by Pulse 98 Oximetry 03/27/20 03/27/20 03/27/20 06:16 06:30 06:46 Temperature Pulse Rate 103 H 104 H 111 H Pulse Rate [ From Monitor] Respiratory 12 13 20 Rate Blood Pressure 100/71 105/73 105/73 O2 Sat by Pulse 99 99 99 Oximetry 03/27/20 03/27/20 03/27/20 07:00 07:08 07:11 Temperature Pulse Rate 109 H 102 H 109 H Pulse Rate [ From Monitor] Respiratory 17 20 Rate Blood Pressure 106/75 106/75 106/75 O2 Sat by Pulse 99 100 100 Oximetry 03/27/20 03/27/20 03/27/20 07:16 07:30 07:46 Temperature Pulse Rate 106 H 108 H 107 H Pulse Rate [ From Monitor] Respiratory 18 22 18 Rate Blood Pressure 106/75 109/73 109/73 O2 Sat by Pulse 100 100 100 Oximetry 03/27/20 03/27/20 03/27/20 08:00 08:16 08:30 Temperature 98.8 F Pulse Rate 108 H 104 H 105 H Pulse Rate [ 108 H From Monitor] Respiratory 18 19 13 Rate Blood Pressure 112/74 112/74 109/73 O2 Sat by Pulse 99 100 99 Oximetry 03/27/20 03/27/20 03/27/20 08:46 09:00 10:11 Temperature Pulse Rate 100 H 84 106 H Pulse Rate [ From Monitor] Respiratory 16 20 Rate Blood Pressure 109/73 99/68 113/78 O2 Sat by Pulse 99 100 Oximetry 03/27/20 11:04 Temperature Pulse Rate 93 H Pulse Rate [ From Monitor] Respiratory 20 Rate Blood Pressure 102/73 O2 Sat by Pulse 100 Oximetry Constitutional: no acute distress, other (thin middle aged male with normal respiratory effort at rest on MVS) Eyes: non-icteric ENT: oropharynx moist, other (S/P Tracheostomy) Neck: supple, no lymphadenopathy, no JVD Effort: mildly labored Ascultation: Bilateral: clear, diminished breath sounds, wheezes, rhonchi Percussion: Bilateral: not dull Cardiovascular: regular rate and rhythm, other (S1,S2, no murmurs) Gastrointestinal: normoactive bowel sounds, soft, non-tender, non-distended, other (+ distended but non tender suprapubis) Integumentary: normal, decubitus ulcer (sacral / gluteal) Extremities: no cyanosis, no edema, pulses normal, other (atrophic looking limbs) Neurologic: pupils equal and round, other (motor strength in extremities 1-2/5, awake, alert, mouths words to make needs known) Psychiatric: depressed CBC and BMP: 03/30/20 14:47 03/30/20 14:47 ABG, PT/INR, D-dimer: ABG ABG pH 7.371 (7.320-7.450) 03/08/20 12:34 POC ABG pCO2 63.1 mmHg (32.0-48.0) H 03/08/20 12:34 ABG pCO2 60.1 mm Hg 03/06/20 04:34 POC ABG pO2 90.5 mmHg (83-108) 03/08/20 12:34 ABG pO2 88.6 mm Hg (80.0-90.0) 03/06/20 04:34 POC ABG HCO3 35.7 03/08/20 12:34 ABG O2 Saturation 97.0 % (95.0-99.0) 03/06/20 04:34 PT/INR, D-dimer PT 15.6 Sec. (12.2-14.9) H 02/24/20 09:19 INR 1.21 (0.87-1.13) H 02/24/20 09:19 D-Dimer 1311.96 ng/mlDDU (0-234) H 02/24/20 09:19 Abnormal lab findings: Abnormal Labs 02/24/20 02/24/20 02/24/20 09:19 09:19 09:19 WBC 20.2 H RBC 5.05 H Hgb Hct MCV MCH RDW 15.3 H Plt Count Lymph % (Auto) Lymph # (Auto) [place] # (Auto) Seg Neutrophils % Seg Neuts % (Manual) 86.0 H Lymphocytes % (Manual) 1.0 L Monocytes % (Manual) Basophils % (Manual) Seg Neutrophils # Seg Neutrophils # Man 17.4 H Lymphocytes # (Manual) 0.2 L Monocytes # (Manual) Eosinophils # (Manual) Basophils # (Manual) PT 15.6 H INR 1.21 H D-Dimer 1311.96 H ABG pH POC ABG pCO2 POC ABG pO2 ABG pO2 ABG HCO3 ABG O2 Saturation ABG Base Excess ABG Hemoglobin ABG Oxyhemoglobin ABG Potassium ABG Glucose Oxyhemoglobin Carboxyhemoglobin Sodium 135 L Potassium 3.2 L Chloride 92.2 L Carbon Dioxide BUN 6 L Creatinine < 0.2 L Glucose 124 H POC Glucose Calcium Ferritin Total Bilirubin 2.30 H Alkaline Phosphatase 132 H Lactate Dehydrogenase Troponin T 0.080 H C-Reactive Protein Total Protein Albumin 3.6 L Prealbumin LDL Cholesterol Direct 41 L Arterial Blood Glucose Arterial Blood Ionized Calcium Urine WBC (Auto) 02/24/20 02/24/20 02/24/20 09:19 09:58 10:01 WBC RBC Hgb Hct MCV MCH RDW Plt Count Lymph % (Auto) Lymph # (Auto) [place] # (Auto) Seg Neutrophils % Seg Neuts % (Manual) Lymphocytes % (Manual) Monocytes % (Manual) Basophils % (Manual) Seg Neutrophils # Seg Neutrophils # Man Lymphocytes # (Manual) Monocytes # (Manual) Eosinophils # (Manual) Basophils # (Manual) PT INR D-Dimer ABG pH 7.176 L* POC ABG pCO2 POC ABG pO2 ABG pO2 91.2 H ABG HCO3 ABG O2 Saturation ABG Base Excess -4.6 L ABG Hemoglobin ABG Oxyhemoglobin ABG Potassium ABG Glucose Oxyhemoglobin 92.6 L Carboxyhemoglobin Sodium Potassium Chloride Carbon Dioxide BUN Creatinine Glucose POC Glucose Calcium Ferritin 1715.0 H Total Bilirubin Alkaline Phosphatase Lactate Dehydrogenase 303 H Troponin T C-Reactive Protein 26.10 H Total Protein Albumin Prealbumin LDL Cholesterol Direct Arterial Blood Glucose Arterial Blood Ionized Calcium Urine WBC (Auto) 02/24/20 02/24/20 02/24/20 11:52 13:45 19:35 WBC RBC Hgb Hct MCV MCH RDW Plt Count Lymph % (Auto) Lymph # (Auto) [place] # (Auto) Seg Neutrophils % Seg Neuts % (Manual) Lymphocytes % (Manual) Monocytes % (Manual) Basophils % (Manual) Seg Neutrophils # Seg Neutrophils # Man Lymphocytes # (Manual) Monocytes # (Manual) Eosinophils # (Manual) Basophils # (Manual) PT INR D-Dimer ABG pH 7.051 L* 7.300 L POC ABG pCO2 POC ABG pO2 ABG pO2 94.7 H 75.1 L ABG HCO3 18.0 L ABG O2 Saturation 93.5 L ABG Base Excess -6.8 L -7.8 L ABG Hemoglobin 13.2 L 11.9 L ABG Oxyhemoglobin ABG Potassium ABG Glucose Oxyhemoglobin 91.0 L 92.7 L Carboxyhemoglobin Sodium Potassium Chloride Carbon Dioxide BUN Creatinine Glucose POC Glucose Calcium Ferritin Total Bilirubin Alkaline Phosphatase Lactate Dehydrogenase Troponin T 0.034 H D C-Reactive Protein Total Protein Albumin Prealbumin LDL Cholesterol Direct Arterial Blood Glucose Arterial Blood Ionized Calcium Urine WBC (Auto) 02/25/20 02/25/20 02/25/20 04:00 04:00 12:26 WBC 22.9 H RBC Hgb Hct MCV 83 L MCH 27 L RDW Plt Count 468 H Lymph % (Auto) Lymph # (Auto) [place] # (Auto) Seg Neutrophils % Seg Neuts % (Manual) 89.0 H Lymphocytes % (Manual) 7.0 L Monocytes % (Manual) Basophils % (Manual) Seg Neutrophils # Seg Neutrophils # Man 20.4 H Lymphocytes # (Manual) Monocytes # (Manual) Eosinophils # (Manual) Basophils # (Manual) PT INR D-Dimer ABG pH POC ABG pCO2 POC ABG pO2 ABG pO2 ABG HCO3 ABG O2 Saturation ABG Base Excess ABG Hemoglobin ABG Oxyhemoglobin ABG Potassium 2.6 L ABG Glucose 142 H Oxyhemoglobin Carboxyhemoglobin Sodium Potassium 3.2 L Chloride Carbon Dioxide 18 L BUN Creatinine 0.2 L Glucose 114 H POC Glucose Calcium Ferritin Total Bilirubin Alkaline Phosphatase Lactate Dehydrogenase Troponin T C-Reactive Protein Total Protein Albumin 3.5 L Prealbumin LDL Cholesterol Direct Arterial Blood Glucose 142 H Arterial Blood Ionized Calcium Urine WBC (Auto) 02/26/20 02/26/20 02/26/20 15:58 17:00 23:43 WBC RBC Hgb Hct MCV MCH RDW Plt Count Lymph % (Auto) Lymph # (Auto) [place] # (Auto) Seg Neutrophils % Seg Neuts % (Manual) Lymphocytes % (Manual) Monocytes % (Manual) Basophils % (Manual) Seg Neutrophils # Seg Neutrophils # Man Lymphocytes # (Manual) Monocytes # (Manual) Eosinophils # (Manual) Basophils # (Manual) PT INR D-Dimer ABG pH 7.502 H POC ABG pCO2 POC ABG pO2 213.6 H ABG pO2 ABG HCO3 ABG O2 Saturation ABG Base Excess ABG Hemoglobin ABG Oxyhemoglobin 99.2 H ABG Potassium 2.9 L ABG Glucose 160 H Oxyhemoglobin Carboxyhemoglobin 0.4 L Sodium Potassium Chloride Carbon Dioxide BUN Creatinine Glucose POC Glucose 189 H 120 H Calcium Ferritin Total Bilirubin Alkaline Phosphatase Lactate Dehydrogenase Troponin T C-Reactive Protein Total Protein Albumin Prealbumin LDL Cholesterol Direct Arterial Blood Glucose 160 H Arterial Blood Ionized Calcium 4.5 L Urine WBC (Auto) 02/27/20 02/27/20 02/27/20 05:00 07:04 17:45 WBC RBC Hgb Hct MCV MCH RDW Plt Count Lymph % (Auto) Lymph # (Auto) [place] # (Auto) Seg Neutrophils % Seg Neuts % (Manual) Lymphocytes % (Manual) Monocytes % (Manual) Basophils % (Manual) Seg Neutrophils # Seg Neutrophils # Man Lymphocytes # (Manual) Monocytes # (Manual) Eosinophils # (Manual) Basophils # (Manual) PT INR D-Dimer ABG pH 7.524 H POC ABG pCO2 POC ABG pO2 ABG pO2 ABG HCO3 ABG O2 Saturation ABG Base Excess ABG Hemoglobin ABG Oxyhemoglobin ABG Potassium 3.0 L ABG Glucose 143 H Oxyhemoglobin Carboxyhemoglobin Sodium Potassium Chloride Carbon Dioxide BUN Creatinine Glucose POC Glucose 154 H 175 H Calcium Ferritin Total Bilirubin Alkaline Phosphatase Lactate Dehydrogenase Troponin T C-Reactive Protein Total Protein Albumin Prealbumin LDL Cholesterol Direct Arterial Blood Glucose 143 H Arterial Blood Ionized Calcium Urine WBC (Auto) 02/27/20 02/28/20 02/28/20 Unknown 00:21 04:15 WBC 18.7 H RBC Hgb Hct MCV MCH RDW Plt Count Lymph % (Auto) 8.7 L Lymph # (Auto) [place] # (Auto) 1.2 H Seg Neutrophils % 84.6 H Seg Neuts % (Manual) Lymphocytes % (Manual) Monocytes % (Manual) Basophils % (Manual) Seg Neutrophils # 15.9 H Seg Neutrophils # Man Lymphocytes # (Manual) Monocytes # (Manual) Eosinophils # (Manual) Basophils # (Manual) PT INR D-Dimer ABG pH POC ABG pCO2 POC ABG pO2 ABG pO2 ABG HCO3 ABG O2 Saturation ABG Base Excess ABG Hemoglobin ABG Oxyhemoglobin ABG Potassium ABG Glucose Oxyhemoglobin Carboxyhemoglobin Sodium Potassium 2.9 L* Chloride Carbon Dioxide 33 H D BUN Creatinine < 0.2 L Glucose 157 H POC Glucose 134 H Calcium Ferritin Total Bilirubin Alkaline Phosphatase Lactate Dehydrogenase Troponin T C-Reactive Protein Total Protein Albumin Prealbumin LDL Cholesterol Direct Arterial Blood Glucose Arterial Blood Ionized Calcium Urine WBC (Auto) 02/28/20 02/28/20 02/28/20 04:15 05:16 05:39 WBC RBC Hgb Hct MCV MCH RDW Plt Count Lymph % (Auto) Lymph # (Auto) [place] # (Auto) Seg Neutrophils % Seg Neuts % (Manual) Lymphocytes % (Manual) Monocytes % (Manual) Basophils % (Manual) Seg Neutrophils # Seg Neutrophils # Man Lymphocytes # (Manual) Monocytes # (Manual) Eosinophils # (Manual) Basophils # (Manual) PT INR D-Dimer ABG pH POC ABG pCO2 POC ABG pO2 ABG pO2 142.9 H ABG HCO3 34.1 H ABG O2 Saturation ABG Base Excess 8.3 H ABG Hemoglobin ABG Oxyhemoglobin ABG Potassium ABG Glucose Oxyhemoglobin Carboxyhemoglobin Sodium 151 H Potassium Chloride Carbon Dioxide 32 H BUN Creatinine 0.2 L Glucose 167 H POC Glucose 138 H Calcium Ferritin Total Bilirubin Alkaline Phosphatase Lactate Dehydrogenase Troponin T C-Reactive Protein Total Protein Albumin Prealbumin LDL Cholesterol Direct Arterial Blood Glucose Arterial Blood Ionized Calcium Urine WBC (Auto) 02/28/20 02/28/20 02/28/20 11:05 11:33 12:54 WBC RBC Hgb Hct MCV MCH RDW Plt Count Lymph % (Auto) Lymph # (Auto) [place] # (Auto) Seg Neutrophils % Seg Neuts % (Manual) Lymphocytes % (Manual) Monocytes % (Manual) Basophils % (Manual) Seg Neutrophils # Seg Neutrophils # Man Lymphocytes # (Manual) Monocytes # (Manual) Eosinophils # (Manual) Basophils # (Manual) PT INR D-Dimer ABG pH POC ABG pCO2 POC ABG pO2 ABG pO2 ABG HCO3 ABG O2 Saturation ABG Base Excess ABG Hemoglobin ABG Oxyhemoglobin ABG Potassium ABG Glucose Oxyhemoglobin Carboxyhemoglobin Sodium Potassium Chloride Carbon Dioxide BUN Creatinine Glucose POC Glucose 160 H Calcium Ferritin Total Bilirubin Alkaline Phosphatase Lactate Dehydrogenase Troponin T C-Reactive Protein 4.70 H Total Protein Albumin Prealbumin 0.090 L LDL Cholesterol Direct Arterial Blood Glucose Arterial Blood Ionized Calcium Urine WBC (Auto) 02/28/20 02/29/20 02/29/20 17:34 00:44 04:05 WBC 19.6 H RBC Hgb Hct MCV MCH 27 L RDW 15.4 H Plt Count Lymph % (Auto) Lymph # (Auto) [place] # (Auto) Seg Neutrophils % Seg Neuts % (Manual) 86.0 H Lymphocytes % (Manual) 7.0 L Monocytes % (Manual) Basophils % (Manual) Seg Neutrophils # Seg Neutrophils # Man 16.9 H Lymphocytes # (Manual) Monocytes # (Manual) 1.2 H Eosinophils # (Manual) Basophils # (Manual) PT INR D-Dimer ABG pH POC ABG pCO2 POC ABG pO2 ABG pO2 ABG HCO3 ABG O2 Saturation ABG Base Excess ABG Hemoglobin ABG Oxyhemoglobin ABG Potassium ABG Glucose Oxyhemoglobin Carboxyhemoglobin Sodium Potassium Chloride Carbon Dioxide BUN Creatinine Glucose POC Glucose 136 H 156 H Calcium Ferritin Total Bilirubin Alkaline Phosphatase Lactate Dehydrogenase Troponin T C-Reactive Protein Total Protein Albumin Prealbumin LDL Cholesterol Direct Arterial Blood Glucose Arterial Blood Ionized Calcium Urine WBC (Auto) 02/29/20 02/29/20 02/29/20 04:05 05:14 05:33 WBC RBC Hgb Hct MCV MCH RDW Plt Count Lymph % (Auto) Lymph # (Auto) [place] # (Auto) Seg Neutrophils % Seg Neuts % (Manual) Lymphocytes % (Manual) Monocytes % (Manual) Basophils % (Manual) Seg Neutrophils # Seg Neutrophils # Man Lymphocytes # (Manual) Monocytes # (Manual) Eosinophils # (Manual) Basophils # (Manual) PT INR D-Dimer ABG pH POC ABG pCO2 54.3 H POC ABG pO2 124.8 H ABG pO2 ABG HCO3 ABG O2 Saturation ABG Base Excess ABG Hemoglobin ABG Oxyhemoglobin ABG Potassium ABG Glucose 185 H Oxyhemoglobin Carboxyhemoglobin Sodium 148 H Potassium Chloride Carbon Dioxide 33 H BUN Creatinine < 0.2 L Glucose 173 H POC Glucose 152 H Calcium Ferritin Total Bilirubin Alkaline Phosphatase Lactate Dehydrogenase Troponin T C-Reactive Protein Total Protein Albumin Prealbumin LDL Cholesterol Direct Arterial Blood Glucose 185 H Arterial Blood Ionized Calcium Urine WBC (Auto) 03/01/20 03/01/20 03/01/20 00:00 03:45 04:33 WBC 23.1 H RBC Hgb Hct MCV MCH 27 L RDW 15.3 H Plt Count Lymph % (Auto) Lymph # (Auto) [place] # (Auto) Seg Neutrophils % Seg Neuts % (Manual) 92.0 H Lymphocytes % (Manual) 6.0 L Monocytes % (Manual) Basophils % (Manual) Seg Neutrophils # Seg Neutrophils # Man 21.3 H Lymphocytes # (Manual) Monocytes # (Manual) Eosinophils # (Manual) 0.5 H Basophils # (Manual) PT INR D-Dimer ABG pH 7.492 H POC ABG pCO2 POC ABG pO2 ABG pO2 157.1 H ABG HCO3 32.3 H ABG O2 Saturation ABG Base Excess 8.1 H ABG Hemoglobin 13.2 L ABG Oxyhemoglobin ABG Potassium ABG Glucose Oxyhemoglobin Carboxyhemoglobin Sodium Potassium Chloride Carbon Dioxide BUN Creatinine Glucose POC Glucose 109 H Calcium Ferritin Total Bilirubin Alkaline Phosphatase Lactate Dehydrogenase Troponin T C-Reactive Protein Total Protein Albumin Prealbumin LDL Cholesterol Direct Arterial Blood Glucose Arterial Blood Ionized Calcium Urine WBC (Auto) 03/01/20 03/01/20 03/01/20 04:33 05:29 12:32 WBC RBC Hgb Hct MCV MCH RDW Plt Count Lymph % (Auto) Lymph # (Auto) [place] # (Auto) Seg Neutrophils % Seg Neuts % (Manual) Lymphocytes % (Manual) Monocytes % (Manual) Basophils % (Manual) Seg Neutrophils # Seg Neutrophils # Man Lymphocytes # (Manual) Monocytes # (Manual) Eosinophils # (Manual) Basophils # (Manual) PT INR D-Dimer ABG pH POC ABG pCO2 POC ABG pO2 ABG pO2 ABG HCO3 ABG O2 Saturation ABG Base Excess ABG Hemoglobin ABG Oxyhemoglobin ABG Potassium ABG Glucose Oxyhemoglobin Carboxyhemoglobin Sodium 146 H Potassium Chloride Carbon Dioxide 32 H BUN Creatinine < 0.2 L Glucose 120 H POC Glucose 120 H 128 H Calcium Ferritin Total Bilirubin Alkaline Phosphatase Lactate Dehydrogenase Troponin T C-Reactive Protein Total Protein Albumin Prealbumin LDL Cholesterol Direct Arterial Blood Glucose Arterial Blood Ionized Calcium Urine WBC (Auto) 03/01/20 03/01/20 03/02/20 17:38 23:46 06:13 WBC RBC Hgb Hct MCV MCH RDW Plt Count Lymph % (Auto) Lymph # (Auto) [place] # (Auto) Seg Neutrophils % Seg Neuts % (Manual) Lymphocytes % (Manual) Monocytes % (Manual) Basophils % (Manual) Seg Neutrophils # Seg Neutrophils # Man Lymphocytes # (Manual) Monocytes # (Manual) Eosinophils # (Manual) Basophils # (Manual) PT INR D-Dimer ABG pH POC ABG pCO2 POC ABG pO2 ABG pO2 ABG HCO3 ABG O2 Saturation ABG Base Excess ABG Hemoglobin ABG Oxyhemoglobin ABG Potassium ABG Glucose Oxyhemoglobin Carboxyhemoglobin Sodium Potassium Chloride Carbon Dioxide BUN Creatinine Glucose POC Glucose 114 H 121 H 120 H Calcium Ferritin Total Bilirubin Alkaline Phosphatase Lactate Dehydrogenase Troponin T C-Reactive Protein Total Protein Albumin Prealbumin LDL Cholesterol Direct Arterial Blood Glucose Arterial Blood Ionized Calcium Urine WBC (Auto) 03/02/20 03/02/20 03/03/20 09:47 09:47 10:21 WBC 23.6 H RBC Hgb Hct MCV MCH RDW 15.3 H Plt Count 494 H Lymph % (Auto) Lymph # (Auto) [place] # (Auto) Seg Neutrophils % Seg Neuts % (Manual) 85.0 H Lymphocytes % (Manual) 6.0 L Monocytes % (Manual) Basophils % (Manual) Seg Neutrophils # Seg Neutrophils # Man 20.1 H Lymphocytes # (Manual) Monocytes # (Manual) 1.7 H Eosinophils # (Manual) Basophils # (Manual) PT INR D-Dimer ABG pH POC ABG pCO2 POC ABG pO2 ABG pO2 ABG HCO3 ABG O2 Saturation ABG Base Excess ABG Hemoglobin ABG Oxyhemoglobin ABG Potassium 3.3 L ABG Glucose 158 H Oxyhemoglobin Carboxyhemoglobin Sodium Potassium Chloride Carbon Dioxide BUN Creatinine < 0.2 L Glucose 177 H POC Glucose Calcium Ferritin Total Bilirubin Alkaline Phosphatase Lactate Dehydrogenase Troponin T C-Reactive Protein Total Protein Albumin Prealbumin LDL Cholesterol Direct Arterial Blood Glucose 158 H Arterial Blood Ionized Calcium Urine WBC (Auto) 03/03/20 03/04/20 03/04/20 21:30 00:00 12:23 WBC RBC Hgb Hct MCV MCH RDW Plt Count Lymph % (Auto) Lymph # (Auto) [place] # (Auto) Seg Neutrophils % Seg Neuts % (Manual) Lymphocytes % (Manual) Monocytes % (Manual) Basophils % (Manual) Seg Neutrophils # Seg Neutrophils # Man Lymphocytes # (Manual) Monocytes # (Manual) Eosinophils # (Manual) Basophils # (Manual) PT INR D-Dimer ABG pH 7.328 L POC ABG pCO2 POC ABG pO2 ABG pO2 68.4 L ABG HCO3 35.0 H ABG O2 Saturation 93.9 L ABG Base Excess 6.8 H ABG Hemoglobin 12.7 L ABG Oxyhemoglobin ABG Potassium ABG Glucose Oxyhemoglobin 91.9 L Carboxyhemoglobin Sodium Potassium Chloride Carbon Dioxide BUN Creatinine Glucose POC Glucose 187 H 163 H Calcium Ferritin Total Bilirubin Alkaline Phosphatase Lactate Dehydrogenase Troponin T C-Reactive Protein Total Protein Albumin Prealbumin LDL Cholesterol Direct Arterial Blood Glucose Arterial Blood Ionized Calcium Urine WBC (Auto) 03/04/20 03/04/20 03/05/20 18:15 21:30 06:02 WBC RBC Hgb Hct MCV MCH RDW Plt Count Lymph % (Auto) Lymph # (Auto) [place] # (Auto) Seg Neutrophils % Seg Neuts % (Manual) Lymphocytes % (Manual) Monocytes % (Manual) Basophils % (Manual) Seg Neutrophils # Seg Neutrophils # Man Lymphocytes # (Manual) Monocytes # (Manual) Eosinophils # (Manual) Basophils # (Manual) PT INR D-Dimer ABG pH 7.297 L POC ABG pCO2 POC ABG pO2 ABG pO2 ABG HCO3 41.0 H ABG O2 Saturation ABG Base Excess 11.0 H ABG Hemoglobin 13.1 L ABG Oxyhemoglobin ABG Potassium ABG Glucose Oxyhemoglobin 94.5 L Carboxyhemoglobin Sodium Potassium Chloride Carbon Dioxide BUN Creatinine Glucose POC Glucose 192 H 127 H Calcium Ferritin Total Bilirubin Alkaline Phosphatase Lactate Dehydrogenase Troponin T C-Reactive Protein Total Protein Albumin Prealbumin LDL Cholesterol Direct Arterial Blood Glucose Arterial Blood Ionized Calcium Urine WBC (Auto) 03/05/20 03/05/20 03/06/20 12:09 16:42 00:24 WBC RBC Hgb Hct MCV MCH RDW Plt Count Lymph % (Auto) Lymph # (Auto) [place] # (Auto) Seg Neutrophils % Seg Neuts % (Manual) Lymphocytes % (Manual) Monocytes % (Manual) Basophils % (Manual) Seg Neutrophils # Seg Neutrophils # Man Lymphocytes # (Manual) Monocytes # (Manual) Eosinophils # (Manual) Basophils # (Manual) PT INR D-Dimer ABG pH POC ABG pCO2 POC ABG pO2 ABG pO2 ABG HCO3 ABG O2 Saturation ABG Base Excess ABG Hemoglobin ABG Oxyhemoglobin ABG Potassium ABG Glucose Oxyhemoglobin Carboxyhemoglobin Sodium Potassium Chloride Carbon Dioxide BUN Creatinine Glucose POC Glucose 147 H 114 H 134 H Calcium Ferritin Total Bilirubin Alkaline Phosphatase Lactate Dehydrogenase Troponin T C-Reactive Protein Total Protein Albumin Prealbumin LDL Cholesterol Direct Arterial Blood Glucose Arterial Blood Ionized Calcium Urine WBC (Auto) 03/06/20 03/06/20 03/06/20 04:34 05:53 06:08 WBC 25.4 H RBC Hgb 10.5 L Hct 32.7 L MCV MCH 27 L RDW 15.3 H Plt Count 634 H Lymph % (Auto) Lymph # (Auto) [place] # (Auto) Seg Neutrophils % Seg Neuts % (Manual) 88.0 H Lymphocytes % (Manual) 2.0 L Monocytes % (Manual) 8.0 H Basophils % (Manual) Seg Neutrophils # Seg Neutrophils # Man 22.4 H Lymphocytes # (Manual) 0.5 L Monocytes # (Manual) 2.0 H Eosinophils # (Manual) Basophils # (Manual) PT INR D-Dimer ABG pH POC ABG pCO2 POC ABG pO2 ABG pO2 ABG HCO3 37.9 H ABG O2 Saturation ABG Base Excess 11.4 H ABG Hemoglobin 10.6 L ABG Oxyhemoglobin ABG Potassium ABG Glucose Oxyhemoglobin 94.7 L Carboxyhemoglobin Sodium Potassium Chloride Carbon Dioxide BUN Creatinine Glucose POC Glucose 135 H Calcium Ferritin Total Bilirubin Alkaline Phosphatase Lactate Dehydrogenase Troponin T C-Reactive Protein Total Protein Albumin Prealbumin LDL Cholesterol Direct Arterial Blood Glucose Arterial Blood Ionized Calcium Urine WBC (Auto) 03/06/20 03/06/20 03/06/20 06:08 12:19 19:10 WBC RBC Hgb Hct MCV MCH RDW Plt Count Lymph % (Auto) Lymph # (Auto) [place] # (Auto) Seg Neutrophils % Seg Neuts % (Manual) Lymphocytes % (Manual) Monocytes % (Manual) Basophils % (Manual) Seg Neutrophils # Seg Neutrophils # Man Lymphocytes # (Manual) Monocytes # (Manual) Eosinophils # (Manual) Basophils # (Manual) PT INR D-Dimer ABG pH POC ABG pCO2 POC ABG pO2 ABG pO2 ABG HCO3 ABG O2 Saturation ABG Base Excess ABG Hemoglobin ABG Oxyhemoglobin ABG Potassium ABG Glucose Oxyhemoglobin Carboxyhemoglobin Sodium 150 H D Potassium Chloride Carbon Dioxide 39 H D BUN 23 H Creatinine < 0.2 L Glucose 144 H POC Glucose 169 H 152 H Calcium Ferritin Total Bilirubin Alkaline Phosphatase Lactate Dehydrogenase Troponin T C-Reactive Protein Total Protein Albumin 3.3 L Prealbumin LDL Cholesterol Direct Arterial Blood Glucose Arterial Blood Ionized Calcium Urine WBC (Auto) 03/06/20 03/07/20 03/07/20 23:58 04:25 04:25 WBC 22.1 H RBC Hgb 10.9 L Hct 32.9 L MCV MCH RDW 15.5 H Plt Count 739 H Lymph % (Auto) 7.8 L Lymph # (Auto) [place] # (Auto) 1.3 H Seg Neutrophils % 85.5 H Seg Neuts % (Manual) Lymphocytes % (Manual) Monocytes % (Manual) Basophils % (Manual) Seg Neutrophils # 18.9 H Seg Neutrophils # Man Lymphocytes # (Manual) Monocytes # (Manual) Eosinophils # (Manual) Basophils # (Manual) PT INR D-Dimer ABG pH POC ABG pCO2 POC ABG pO2 ABG pO2 ABG HCO3 ABG O2 Saturation ABG Base Excess ABG Hemoglobin ABG Oxyhemoglobin ABG Potassium ABG Glucose Oxyhemoglobin Carboxyhemoglobin Sodium 146 H Potassium Chloride Carbon Dioxide 37 H BUN Creatinine < 0.2 L Glucose 118 H POC Glucose 111 H Calcium Ferritin Total Bilirubin Alkaline Phosphatase Lactate Dehydrogenase Troponin T C-Reactive Protein Total Protein Albumin 3.7 L Prealbumin LDL Cholesterol Direct Arterial Blood Glucose Arterial Blood Ionized Calcium Urine WBC (Auto) 03/07/20 03/07/20 03/07/20 05:20 17:45 23:32 WBC RBC Hgb Hct MCV MCH RDW Plt Count Lymph % (Auto) Lymph # (Auto) [place] # (Auto) Seg Neutrophils % Seg Neuts % (Manual) Lymphocytes % (Manual) Monocytes % (Manual) Basophils % (Manual) Seg Neutrophils # Seg Neutrophils # Man Lymphocytes # (Manual) Monocytes # (Manual) Eosinophils # (Manual) Basophils # (Manual) PT INR D-Dimer ABG pH POC ABG pCO2 POC ABG pO2 ABG pO2 ABG HCO3 ABG O2 Saturation ABG Base Excess ABG Hemoglobin ABG Oxyhemoglobin ABG Potassium ABG Glucose Oxyhemoglobin Carboxyhemoglobin Sodium Potassium Chloride Carbon Dioxide BUN Creatinine Glucose POC Glucose 113 H 124 H 210 H Calcium Ferritin Total Bilirubin Alkaline Phosphatase Lactate Dehydrogenase Troponin T C-Reactive Protein Total Protein Albumin Prealbumin LDL Cholesterol Direct Arterial Blood Glucose Arterial Blood Ionized Calcium Urine WBC (Auto) 03/08/20 03/08/20 03/08/20 05:35 06:43 06:43 WBC 28.9 H RBC 3.53 L Hgb 9.7 L Hct 30.3 L MCV MCH RDW 15.6 H Plt Count 578 H Lymph % (Auto) Lymph # (Auto) [place] # (Auto) Seg Neutrophils % Seg Neuts % (Manual) 93.0 H Lymphocytes % (Manual) 4.0 L Monocytes % (Manual) Basophils % (Manual) Seg Neutrophils # Seg Neutrophils # Man 26.9 H Lymphocytes # (Manual) Monocytes # (Manual) Eosinophils # (Manual) Basophils # (Manual) PT INR D-Dimer ABG pH POC ABG pCO2 POC ABG pO2 ABG pO2 ABG HCO3 ABG O2 Saturation ABG Base Excess ABG Hemoglobin ABG Oxyhemoglobin ABG Potassium ABG Glucose Oxyhemoglobin Carboxyhemoglobin Sodium 146 H Potassium Chloride Carbon Dioxide 35 H BUN 34 H Creatinine 0.3 L D Glucose 125 H POC Glucose 147 H Calcium Ferritin Total Bilirubin Alkaline Phosphatase Lactate Dehydrogenase Troponin T C-Reactive Protein Total Protein 5.9 L Albumin 3.2 L Prealbumin LDL Cholesterol Direct Arterial Blood Glucose Arterial Blood Ionized Calcium Urine WBC (Auto) 03/08/20 03/08/20 03/08/20 08:57 11:14 12:34 WBC RBC Hgb Hct MCV MCH RDW Plt Count Lymph % (Auto) Lymph # (Auto) [place] # (Auto) Seg Neutrophils % Seg Neuts % (Manual) Lymphocytes % (Manual) Monocytes % (Manual) Basophils % (Manual) Seg Neutrophils # Seg Neutrophils # Man Lymphocytes # (Manual) Monocytes # (Manual) Eosinophils # (Manual) Basophils # (Manual) PT INR D-Dimer ABG pH POC ABG pCO2 63.1 H POC ABG pO2 ABG pO2 ABG HCO3 ABG O2 Saturation ABG Base Excess ABG Hemoglobin 10.9 L ABG Oxyhemoglobin ABG Potassium ABG Glucose 176 H Oxyhemoglobin Carboxyhemoglobin Sodium Potassium Chloride Carbon Dioxide BUN Creatinine Glucose POC Glucose 171 H Calcium Ferritin Total Bilirubin Alkaline Phosphatase Lactate Dehydrogenase Troponin T C-Reactive Protein Total Protein Albumin Prealbumin LDL Cholesterol Direct Arterial Blood Glucose 176 H Arterial Blood Ionized Calcium 4.5 L Urine WBC (Auto) 10.0 H 03/08/20 03/08/20 03/09/20 18:02 23:43 05:49 WBC RBC Hgb Hct MCV MCH RDW Plt Count Lymph % (Auto) Lymph # (Auto) [place] # (Auto) Seg Neutrophils % Seg Neuts % (Manual) Lymphocytes % (Manual) Monocytes % (Manual) Basophils % (Manual) Seg Neutrophils # Seg Neutrophils # Man Lymphocytes # (Manual) Monocytes # (Manual) Eosinophils # (Manual) Basophils # (Manual) PT INR D-Dimer ABG pH POC ABG pCO2 POC ABG pO2 ABG pO2 ABG HCO3 ABG O2 Saturation ABG Base Excess ABG Hemoglobin ABG Oxyhemoglobin ABG Potassium ABG Glucose Oxyhemoglobin Carboxyhemoglobin Sodium Potassium Chloride Carbon Dioxide BUN Creatinine Glucose POC Glucose 157 H 134 H 163 H Calcium Ferritin Total Bilirubin Alkaline Phosphatase Lactate Dehydrogenase Troponin T C-Reactive Protein Total Protein Albumin Prealbumin LDL Cholesterol Direct Arterial Blood Glucose Arterial Blood Ionized Calcium Urine WBC (Auto) 03/09/20 03/09/20 03/09/20 08:35 08:35 12:11 WBC 23.4 H RBC 3.36 L Hgb 9.3 L Hct 28.8 L MCV MCH RDW 15.9 H Plt Count 521 H Lymph % (Auto) Lymph # (Auto) [place] # (Auto) Seg Neutrophils % Seg Neuts % (Manual) 87.0 H Lymphocytes % (Manual) 4.0 L Monocytes % (Manual) 9.0 H Basophils % (Manual) Seg Neutrophils # Seg Neutrophils # Man 20.4 H Lymphocytes # (Manual) 0.9 L Monocytes # (Manual) 2.1 H Eosinophils # (Manual) Basophils # (Manual) PT INR D-Dimer ABG pH POC ABG pCO2 POC ABG pO2 ABG pO2 ABG HCO3 ABG O2 Saturation ABG Base Excess ABG Hemoglobin ABG Oxyhemoglobin ABG Potassium ABG Glucose Oxyhemoglobin Carboxyhemoglobin Sodium 147 H Potassium Chloride Carbon Dioxide 37 H BUN 63 H Creatinine Glucose 154 H POC Glucose 128 H Calcium Ferritin Total Bilirubin Alkaline Phosphatase Lactate Dehydrogenase Troponin T C-Reactive Protein Total Protein Albumin Prealbumin LDL Cholesterol Direct Arterial Blood Glucose Arterial Blood Ionized Calcium Urine WBC (Auto) 03/09/20 03/10/20 03/10/20 17:51 00:25 05:41 WBC RBC Hgb Hct MCV MCH RDW Plt Count Lymph % (Auto) Lymph # (Auto) [place] # (Auto) Seg Neutrophils % Seg Neuts % (Manual) Lymphocytes % (Manual) Monocytes % (Manual) Basophils % (Manual) Seg Neutrophils # Seg Neutrophils # Man Lymphocytes # (Manual) Monocytes # (Manual) Eosinophils # (Manual) Basophils # (Manual) PT INR D-Dimer ABG pH POC ABG pCO2 POC ABG pO2 ABG pO2 ABG HCO3 ABG O2 Saturation ABG Base Excess ABG Hemoglobin ABG Oxyhemoglobin ABG Potassium ABG Glucose Oxyhemoglobin Carboxyhemoglobin Sodium Potassium Chloride Carbon Dioxide BUN Creatinine Glucose POC Glucose 127 H 128 H 153 H Calcium Ferritin Total Bilirubin Alkaline Phosphatase Lactate Dehydrogenase Troponin T C-Reactive Protein Total Protein Albumin Prealbumin LDL Cholesterol Direct Arterial Blood Glucose Arterial Blood Ionized Calcium Urine WBC (Auto) 03/10/20 03/10/20 03/10/20 06:14 06:14 12:02 WBC 18.3 H RBC 3.45 L Hgb 9.5 L Hct 29.5 L MCV MCH RDW 16.1 H Plt Count 494 H Lymph % (Auto) Lymph # (Auto) [place] # (Auto) Seg Neutrophils % Seg Neuts % (Manual) 95.0 H Lymphocytes % (Manual) 1.0 L Monocytes % (Manual) Basophils % (Manual) Seg Neutrophils # Seg Neutrophils # Man 17.4 H Lymphocytes # (Manual) 0.2 L Monocytes # (Manual) Eosinophils # (Manual) Basophils # (Manual) PT INR D-Dimer ABG pH POC ABG pCO2 POC ABG pO2 ABG pO2 ABG HCO3 ABG O2 Saturation ABG Base Excess ABG Hemoglobin ABG Oxyhemoglobin ABG Potassium ABG Glucose Oxyhemoglobin Carboxyhemoglobin Sodium 149 H Potassium Chloride Carbon Dioxide 35 H BUN 34 H Creatinine 0.2 L D Glucose 177 H POC Glucose 151 H Calcium Ferritin Total Bilirubin Alkaline Phosphatase Lactate Dehydrogenase Troponin T C-Reactive Protein Total Protein Albumin Prealbumin LDL Cholesterol Direct Arterial Blood Glucose Arterial Blood Ionized Calcium Urine WBC (Auto) 03/10/20 03/10/20 03/11/20 17:41 23:53 05:02 WBC RBC Hgb Hct MCV MCH RDW Plt Count Lymph % (Auto) Lymph # (Auto) [place] # (Auto) Seg Neutrophils % Seg Neuts % (Manual) Lymphocytes % (Manual) Monocytes % (Manual) Basophils % (Manual) Seg Neutrophils # Seg Neutrophils # Man Lymphocytes # (Manual) Monocytes # (Manual) Eosinophils # (Manual) Basophils # (Manual) PT INR D-Dimer ABG pH POC ABG pCO2 POC ABG pO2 ABG pO2 ABG HCO3 ABG O2 Saturation ABG Base Excess ABG Hemoglobin ABG Oxyhemoglobin ABG Potassium ABG Glucose Oxyhemoglobin Carboxyhemoglobin Sodium Potassium Chloride Carbon Dioxide BUN Creatinine Glucose POC Glucose 168 H 142 H 146 H Calcium Ferritin Total Bilirubin Alkaline Phosphatase Lactate Dehydrogenase Troponin T C-Reactive Protein Total Protein Albumin Prealbumin LDL Cholesterol Direct Arterial Blood Glucose Arterial Blood Ionized Calcium Urine WBC (Auto) 03/11/20 03/11/20 03/11/20 11:30 14:01 14:01 WBC 19.7 H RBC 3.04 L Hgb 8.7 L Hct 25.8 L MCV MCH RDW 15.6 H Plt Count Lymph % (Auto) Lymph # (Auto) [place] # (Auto) Seg Neutrophils % Seg Neuts % (Manual) Lymphocytes % (Manual) Monocytes % (Manual) Basophils % (Manual) Seg Neutrophils # Seg Neutrophils # Man Lymphocytes # (Manual) Monocytes # (Manual) Eosinophils # (Manual) Basophils # (Manual) PT INR D-Dimer ABG pH POC ABG pCO2 POC ABG pO2 ABG pO2 ABG HCO3 ABG O2 Saturation ABG Base Excess ABG Hemoglobin ABG Oxyhemoglobin ABG Potassium ABG Glucose Oxyhemoglobin Carboxyhemoglobin Sodium 151 H Potassium Chloride Carbon Dioxide 37 H BUN Creatinine < 0.2 L Glucose 171 H POC Glucose 248 H Calcium Ferritin Total Bilirubin Alkaline Phosphatase Lactate Dehydrogenase Troponin T C-Reactive Protein Total Protein Albumin Prealbumin LDL Cholesterol Direct Arterial Blood Glucose Arterial Blood Ionized Calcium Urine WBC (Auto) 11/14/20 11/14/20 11/15/20 17:09 23:52 04:39 WBC 19.9 H RBC 3.16 L Hgb 8.9 L Hct 27.5 L MCV MCH RDW 15.7 H Plt Count Lymph % (Auto) 6.8 L Lymph # (Auto) [place] # (Auto) 1.2 H Seg Neutrophils % 86.0 H Seg Neuts % (Manual) Lymphocytes % (Manual) Monocytes % (Manual) Basophils % (Manual) Seg Neutrophils # 17.1 H Seg Neutrophils # Man Lymphocytes # (Manual) Monocytes # (Manual) Eosinophils # (Manual) Basophils # (Manual) PT INR D-Dimer ABG pH POC ABG pCO2 POC ABG pO2 ABG pO2 ABG HCO3 ABG O2 Saturation ABG Base Excess ABG Hemoglobin ABG Oxyhemoglobin ABG Potassium ABG Glucose Oxyhemoglobin Carboxyhemoglobin Sodium Potassium Chloride Carbon Dioxide BUN Creatinine Glucose POC Glucose 124 H 131 H Calcium Ferritin Total Bilirubin Alkaline Phosphatase Lactate Dehydrogenase Troponin T C-Reactive Protein Total Protein Albumin Prealbumin LDL Cholesterol Direct Arterial Blood Glucose Arterial Blood Ionized Calcium Urine WBC (Auto) 03/12/20 03/12/20 03/12/20 04:39 05:28 11:34 WBC RBC Hgb Hct MCV MCH RDW Plt Count Lymph % (Auto) Lymph # (Auto) [place] # (Auto) Seg Neutrophils % Seg Neuts % (Manual) Lymphocytes % (Manual) Monocytes % (Manual) Basophils % (Manual) Seg Neutrophils # Seg Neutrophils # Man Lymphocytes # (Manual) Monocytes # (Manual) Eosinophils # (Manual) Basophils # (Manual) PT INR D-Dimer ABG pH POC ABG pCO2 POC ABG pO2 ABG pO2 ABG HCO3 ABG O2 Saturation ABG Base Excess ABG Hemoglobin ABG Oxyhemoglobin ABG Potassium ABG Glucose Oxyhemoglobin Carboxyhemoglobin Sodium 147 H Potassium Chloride Carbon Dioxide 40 H BUN Creatinine < 0.2 L Glucose 175 H POC Glucose 167 H 144 H Calcium Ferritin Total Bilirubin Alkaline Phosphatase Lactate Dehydrogenase Troponin T C-Reactive Protein Total Protein Albumin Prealbumin LDL Cholesterol Direct Arterial Blood Glucose Arterial Blood Ionized Calcium Urine WBC (Auto) 03/12/20 03/12/20 03/13/20 17:32 23:57 05:57 WBC RBC Hgb Hct MCV MCH RDW Plt Count Lymph % (Auto) Lymph # (Auto) [place] # (Auto) Seg Neutrophils % Seg Neuts % (Manual) Lymphocytes % (Manual) Monocytes % (Manual) Basophils % (Manual) Seg Neutrophils # Seg Neutrophils # Man Lymphocytes # (Manual) Monocytes # (Manual) Eosinophils # (Manual) Basophils # (Manual) PT INR D-Dimer ABG pH POC ABG pCO2 POC ABG pO2 ABG pO2 ABG HCO3 ABG O2 Saturation ABG Base Excess ABG Hemoglobin ABG Oxyhemoglobin ABG Potassium ABG Glucose Oxyhemoglobin Carboxyhemoglobin Sodium Potassium Chloride Carbon Dioxide BUN Creatinine Glucose POC Glucose 141 H 137 H 161 H Calcium Ferritin Total Bilirubin Alkaline Phosphatase Lactate Dehydrogenase Troponin T C-Reactive Protein Total Protein Albumin Prealbumin LDL Cholesterol Direct Arterial Blood Glucose Arterial Blood Ionized Calcium Urine WBC (Auto) 03/13/20 03/13/20 03/13/20 12:28 14:14 18:39 WBC RBC Hgb Hct MCV MCH RDW Plt Count Lymph % (Auto) Lymph # (Auto) [place] # (Auto) Seg Neutrophils % Seg Neuts % (Manual) Lymphocytes % (Manual) Monocytes % (Manual) Basophils % (Manual) Seg Neutrophils # Seg Neutrophils # Man Lymphocytes # (Manual) Monocytes # (Manual) Eosinophils # (Manual) Basophils # (Manual) PT INR D-Dimer ABG pH POC ABG pCO2 POC ABG pO2 ABG pO2 ABG HCO3 ABG O2 Saturation ABG Base Excess ABG Hemoglobin ABG Oxyhemoglobin ABG Potassium ABG Glucose Oxyhemoglobin Carboxyhemoglobin Sodium Potassium Chloride Carbon Dioxide 39 H BUN Creatinine < 0.2 L Glucose 129 H POC Glucose 130 H 125 H Calcium Ferritin Total Bilirubin Alkaline Phosphatase Lactate Dehydrogenase Troponin T C-Reactive Protein Total Protein Albumin Prealbumin LDL Cholesterol Direct Arterial Blood Glucose Arterial Blood Ionized Calcium Urine WBC (Auto) 03/13/20 03/14/20 03/14/20 23:33 05:24 08:07 WBC 16.8 H RBC 2.81 L Hgb 7.9 L Hct 23.9 L MCV MCH RDW 15.9 H Plt Count Lymph % (Auto) Lymph # (Auto) [place] # (Auto) Seg Neutrophils % Seg Neuts % (Manual) 84.0 H Lymphocytes % (Manual) 10.0 L Monocytes % (Manual) Basophils % (Manual) Seg Neutrophils # Seg Neutrophils # Man 14.1 H Lymphocytes # (Manual) Monocytes # (Manual) Eosinophils # (Manual) Basophils # (Manual) PT INR D-Dimer ABG pH POC ABG pCO2 POC ABG pO2 ABG pO2 ABG HCO3 ABG O2 Saturation ABG Base Excess ABG Hemoglobin ABG Oxyhemoglobin ABG Potassium ABG Glucose Oxyhemoglobin Carboxyhemoglobin Sodium Potassium Chloride Carbon Dioxide BUN Creatinine Glucose POC Glucose 146 H 125 H Calcium Ferritin Total Bilirubin Alkaline Phosphatase Lactate Dehydrogenase Troponin T C-Reactive Protein Total Protein Albumin Prealbumin LDL Cholesterol Direct Arterial Blood Glucose Arterial Blood Ionized Calcium Urine WBC (Auto) 03/14/20 03/14/20 03/14/20 08:07 12:21 18:26 WBC RBC Hgb Hct MCV MCH RDW Plt Count Lymph % (Auto) Lymph # (Auto) [place] # (Auto) Seg Neutrophils % Seg Neuts % (Manual) Lymphocytes % (Manual) Monocytes % (Manual) Basophils % (Manual) Seg Neutrophils # Seg Neutrophils # Man Lymphocytes # (Manual) Monocytes # (Manual) Eosinophils # (Manual) Basophils # (Manual) PT INR D-Dimer ABG pH POC ABG pCO2 POC ABG pO2 ABG pO2 ABG HCO3 ABG O2 Saturation ABG Base Excess ABG Hemoglobin ABG Oxyhemoglobin ABG Potassium ABG Glucose Oxyhemoglobin Carboxyhemoglobin Sodium Potassium Chloride 97.0 L Carbon Dioxide 37 H BUN Creatinine < 0.2 L Glucose 129 H POC Glucose 109 H 142 H Calcium 8.3 L Ferritin Total Bilirubin Alkaline Phosphatase Lactate Dehydrogenase Troponin T C-Reactive Protein Total Protein Albumin Prealbumin LDL Cholesterol Direct Arterial Blood Glucose Arterial Blood Ionized Calcium Urine WBC (Auto) 03/14/20 03/15/20 03/15/20 23:57 05:46 08:06 WBC 19.7 H RBC 3.29 L Hgb 9.1 L Hct 28.0 L MCV MCH RDW 15.9 H Plt Count Lymph % (Auto) Lymph # (Auto) [place] # (Auto) Seg Neutrophils % Seg Neuts % (Manual) Lymphocytes % (Manual) Monocytes % (Manual) Basophils % (Manual) Seg Neutrophils # Seg Neutrophils # Man Lymphocytes # (Manual) Monocytes # (Manual) Eosinophils # (Manual) Basophils # (Manual) PT INR D-Dimer ABG pH POC ABG pCO2 POC ABG pO2 ABG pO2 ABG HCO3 ABG O2 Saturation ABG Base Excess ABG Hemoglobin ABG Oxyhemoglobin ABG Potassium ABG Glucose Oxyhemoglobin Carboxyhemoglobin Sodium Potassium Chloride Carbon Dioxide BUN Creatinine Glucose POC Glucose 157 H 118 H Calcium Ferritin Total Bilirubin Alkaline Phosphatase Lactate Dehydrogenase Troponin T C-Reactive Protein Total Protein Albumin Prealbumin LDL Cholesterol Direct Arterial Blood Glucose Arterial Blood Ionized Calcium Urine WBC (Auto) 03/15/20 03/15/20 03/15/20 08:06 12:44 18:09 WBC RBC Hgb Hct MCV MCH RDW Plt Count Lymph % (Auto) Lymph # (Auto) [place] # (Auto) Seg Neutrophils % Seg Neuts % (Manual) Lymphocytes % (Manual) Monocytes % (Manual) Basophils % (Manual) Seg Neutrophils # Seg Neutrophils # Man Lymphocytes # (Manual) Monocytes # (Manual) Eosinophils # (Manual) Basophils # (Manual) PT INR D-Dimer ABG pH POC ABG pCO2 POC ABG pO2 ABG pO2 ABG HCO3 ABG O2 Saturation ABG Base Excess ABG Hemoglobin ABG Oxyhemoglobin ABG Potassium ABG Glucose Oxyhemoglobin Carboxyhemoglobin Sodium 136 L Potassium Chloride 93.6 L Carbon Dioxide 37 H BUN Creatinine < 0.2 L Glucose 132 H POC Glucose 151 H 164 H Calcium Ferritin Total Bilirubin Alkaline Phosphatase Lactate Dehydrogenase Troponin T C-Reactive Protein Total Protein Albumin Prealbumin LDL Cholesterol Direct Arterial Blood Glucose Arterial Blood Ionized Calcium Urine WBC (Auto) 03/15/20 03/16/20 03/16/20 23:26 05:39 11:58 WBC RBC Hgb Hct MCV MCH RDW Plt Count Lymph % (Auto) Lymph # (Auto) [place] # (Auto) Seg Neutrophils % Seg Neuts % (Manual) Lymphocytes % (Manual) Monocytes % (Manual) Basophils % (Manual) Seg Neutrophils # Seg Neutrophils # Man Lymphocytes # (Manual) Monocytes # (Manual) Eosinophils # (Manual) Basophils # (Manual) PT INR D-Dimer ABG pH POC ABG pCO2 POC ABG pO2 ABG pO2 ABG HCO3 ABG O2 Saturation ABG Base Excess ABG Hemoglobin ABG Oxyhemoglobin ABG Potassium ABG Glucose Oxyhemoglobin Carboxyhemoglobin Sodium Potassium Chloride Carbon Dioxide BUN Creatinine Glucose POC Glucose 136 H 116 H 109 H Calcium Ferritin Total Bilirubin Alkaline Phosphatase Lactate Dehydrogenase Troponin T C-Reactive Protein Total Protein Albumin Prealbumin LDL Cholesterol Direct Arterial Blood Glucose Arterial Blood Ionized Calcium Urine WBC (Auto) 03/16/20 03/17/20 03/17/20 23:56 04:40 04:40 WBC 18.0 H RBC 3.33 L Hgb 9.5 L Hct 28.8 L MCV MCH RDW 16.4 H Plt Count 499 H Lymph % (Auto) Lymph # (Auto) [place] # (Auto) Seg Neutrophils % Seg Neuts % (Manual) 82.0 H Lymphocytes % (Manual) 8.0 L Monocytes % (Manual) Basophils % (Manual) Seg Neutrophils # Seg Neutrophils # Man 14.8 H Lymphocytes # (Manual) Monocytes # (Manual) 1.3 H Eosinophils # (Manual) Basophils # (Manual) 0.2 H PT INR D-Dimer ABG pH POC ABG pCO2 POC ABG pO2 ABG pO2 ABG HCO3 ABG O2 Saturation ABG Base Excess ABG Hemoglobin ABG Oxyhemoglobin ABG Potassium ABG Glucose Oxyhemoglobin Carboxyhemoglobin Sodium Potassium Chloride 97.7 L Carbon Dioxide 32 H BUN Creatinine < 0.2 L Glucose 114 H POC Glucose 131 H Calcium Ferritin Total Bilirubin Alkaline Phosphatase Lactate Dehydrogenase Troponin T C-Reactive Protein Total Protein Albumin Prealbumin LDL Cholesterol Direct Arterial Blood Glucose Arterial Blood Ionized Calcium Urine WBC (Auto) 03/18/20 03/18/20 03/18/20 00:21 05:21 11:55 WBC RBC Hgb Hct MCV MCH RDW Plt Count Lymph % (Auto) Lymph # (Auto) [place] # (Auto) Seg Neutrophils % Seg Neuts % (Manual) Lymphocytes % (Manual) Monocytes % (Manual) Basophils % (Manual) Seg Neutrophils # Seg Neutrophils # Man Lymphocytes # (Manual) Monocytes # (Manual) Eosinophils # (Manual) Basophils # (Manual) PT INR D-Dimer ABG pH POC ABG pCO2 POC ABG pO2 ABG pO2 ABG HCO3 ABG O2 Saturation ABG Base Excess ABG Hemoglobin ABG Oxyhemoglobin ABG Potassium ABG Glucose Oxyhemoglobin Carboxyhemoglobin Sodium Potassium Chloride Carbon Dioxide BUN Creatinine Glucose POC Glucose 124 H 138 H 119 H Calcium Ferritin Total Bilirubin Alkaline Phosphatase Lactate Dehydrogenase Troponin T C-Reactive Protein Total Protein Albumin Prealbumin LDL Cholesterol Direct Arterial Blood Glucose Arterial Blood Ionized Calcium Urine WBC (Auto) 03/18/20 03/18/20 03/19/20 17:03 23:58 05:24 WBC RBC Hgb Hct MCV MCH RDW Plt Count Lymph % (Auto) Lymph # (Auto) [place] # (Auto) Seg Neutrophils % Seg Neuts % (Manual) Lymphocytes % (Manual) Monocytes % (Manual) Basophils % (Manual) Seg Neutrophils # Seg Neutrophils # Man Lymphocytes # (Manual) Monocytes # (Manual) Eosinophils # (Manual) Basophils # (Manual) PT INR D-Dimer ABG pH POC ABG pCO2 POC ABG pO2 ABG pO2 ABG HCO3 ABG O2 Saturation ABG Base Excess ABG Hemoglobin ABG Oxyhemoglobin ABG Potassium ABG Glucose Oxyhemoglobin Carboxyhemoglobin Sodium Potassium Chloride Carbon Dioxide BUN Creatinine Glucose POC Glucose 128 H 128 H 115 H Calcium Ferritin Total Bilirubin Alkaline Phosphatase Lactate Dehydrogenase Troponin T C-Reactive Protein Total Protein Albumin Prealbumin LDL Cholesterol Direct Arterial Blood Glucose Arterial Blood Ionized Calcium Urine WBC (Auto) 03/19/20 03/19/20 03/19/20 08:05 08:05 11:56 WBC 16.8 H RBC 3.36 L Hgb 9.4 L Hct 28.8 L MCV MCH RDW 17.4 H Plt Count 567 H Lymph % (Auto) 7.8 L Lymph # (Auto) [place] # (Auto) 1.2 H Seg Neutrophils % 83.5 H Seg Neuts % (Manual) Lymphocytes % (Manual) Monocytes % (Manual) Basophils % (Manual) Seg Neutrophils # 14.1 H Seg Neutrophils # Man Lymphocytes # (Manual) Monocytes # (Manual) Eosinophils # (Manual) Basophils # (Manual) PT INR D-Dimer ABG pH POC ABG pCO2 POC ABG pO2 ABG pO2 ABG HCO3 ABG O2 Saturation ABG Base Excess ABG Hemoglobin ABG Oxyhemoglobin ABG Potassium ABG Glucose Oxyhemoglobin Carboxyhemoglobin Sodium Potassium Chloride Carbon Dioxide 36 H BUN Creatinine < 0.2 L Glucose 135 H POC Glucose 128 H Calcium Ferritin Total Bilirubin Alkaline Phosphatase Lactate Dehydrogenase Troponin T C-Reactive Protein Total Protein Albumin Prealbumin LDL Cholesterol Direct Arterial Blood Glucose Arterial Blood Ionized Calcium Urine WBC (Auto) 03/19/20 03/20/20 03/20/20 23:59 05:12 16:52 WBC RBC Hgb Hct MCV MCH RDW Plt Count Lymph % (Auto) Lymph # (Auto) [place] # (Auto) Seg Neutrophils % Seg Neuts % (Manual) Lymphocytes % (Manual) Monocytes % (Manual) Basophils % (Manual) Seg Neutrophils # Seg Neutrophils # Man Lymphocytes # (Manual) Monocytes # (Manual) Eosinophils # (Manual) Basophils # (Manual) PT INR D-Dimer ABG pH POC ABG pCO2 POC ABG pO2 ABG pO2 ABG HCO3 ABG O2 Saturation ABG Base Excess ABG Hemoglobin ABG Oxyhemoglobin ABG Potassium ABG Glucose Oxyhemoglobin Carboxyhemoglobin Sodium Potassium Chloride Carbon Dioxide BUN Creatinine Glucose POC Glucose 120 H 131 H 124 H Calcium Ferritin Total Bilirubin Alkaline Phosphatase Lactate Dehydrogenase Troponin T C-Reactive Protein Total Protein Albumin Prealbumin LDL Cholesterol Direct Arterial Blood Glucose Arterial Blood Ionized Calcium Urine WBC (Auto) 03/20/20 03/21/20 03/21/20 23:35 04:50 07:35 WBC 15.2 H RBC 3.39 L Hgb 9.4 L Hct 29.4 L MCV MCH RDW 17.6 H Plt Count 518 H Lymph % (Auto) Lymph # (Auto) [place] # (Auto) Seg Neutrophils % Seg Neuts % (Manual) 83.0 H Lymphocytes % (Manual) 10.0 L Monocytes % (Manual) Basophils % (Manual) 2.0 H Seg Neutrophils # Seg Neutrophils # Man 12.6 H Lymphocytes # (Manual) Monocytes # (Manual) Eosinophils # (Manual) Basophils # (Manual) 0.3 H PT INR D-Dimer ABG pH POC ABG pCO2 POC ABG pO2 ABG pO2 ABG HCO3 ABG O2 Saturation ABG Base Excess ABG Hemoglobin ABG Oxyhemoglobin ABG Potassium ABG Glucose Oxyhemoglobin Carboxyhemoglobin Sodium Potassium Chloride Carbon Dioxide BUN Creatinine Glucose POC Glucose 125 H 127 H Calcium Ferritin Total Bilirubin Alkaline Phosphatase Lactate Dehydrogenase Troponin T C-Reactive Protein Total Protein Albumin Prealbumin LDL Cholesterol Direct Arterial Blood Glucose Arterial Blood Ionized Calcium Urine WBC (Auto) 03/21/20 03/21/20 03/21/20 07:35 11:45 17:22 WBC RBC Hgb Hct MCV MCH RDW Plt Count Lymph % (Auto) Lymph # (Auto) [place] # (Auto) Seg Neutrophils % Seg Neuts % (Manual) Lymphocytes % (Manual) Monocytes % (Manual) Basophils % (Manual) Seg Neutrophils # Seg Neutrophils # Man Lymphocytes # (Manual) Monocytes # (Manual) Eosinophils # (Manual) Basophils # (Manual) PT INR D-Dimer ABG pH POC ABG pCO2 POC ABG pO2 ABG pO2 ABG HCO3 ABG O2 Saturation ABG Base Excess ABG Hemoglobin ABG Oxyhemoglobin ABG Potassium ABG Glucose Oxyhemoglobin Carboxyhemoglobin Sodium 136 L Potassium Chloride 97.7 L Carbon Dioxide 32 H BUN Creatinine < 0.2 L Glucose 103 H POC Glucose 126 H 120 H Calcium Ferritin Total Bilirubin Alkaline Phosphatase Lactate Dehydrogenase Troponin T C-Reactive Protein Total Protein Albumin Prealbumin LDL Cholesterol Direct Arterial Blood Glucose Arterial Blood Ionized Calcium Urine WBC (Auto) 03/22/20 03/22/20 03/22/20 05:09 06:34 06:34 WBC 17.5 H RBC 3.52 L Hgb 10.0 L Hct 30.7 L MCV MCH RDW 17.5 H Plt Count 499 H Lymph % (Auto) Lymph # (Auto) [place] # (Auto) Seg Neutrophils % Seg Neuts % (Manual) 80.0 H Lymphocytes % (Manual) 10.0 L Monocytes % (Manual) Basophils % (Manual) Seg Neutrophils # Seg Neutrophils # Man 14.0 H Lymphocytes # (Manual) Monocytes # (Manual) Eosinophils # (Manual) Basophils # (Manual) PT INR D-Dimer ABG pH POC ABG pCO2 POC ABG pO2 ABG pO2 ABG HCO3 ABG O2 Saturation ABG Base Excess ABG Hemoglobin ABG Oxyhemoglobin ABG Potassium ABG Glucose Oxyhemoglobin Carboxyhemoglobin Sodium Potassium Chloride 96.6 L Carbon Dioxide 38 H BUN Creatinine < 0.2 L Glucose 139 H POC Glucose 125 H Calcium Ferritin Total Bilirubin Alkaline Phosphatase Lactate Dehydrogenase Troponin T C-Reactive Protein Total Protein Albumin Prealbumin LDL Cholesterol Direct Arterial Blood Glucose Arterial Blood Ionized Calcium Urine WBC (Auto) 03/22/20 03/22/20 03/22/20 11:45 18:00 23:32 WBC RBC Hgb Hct MCV MCH RDW Plt Count Lymph % (Auto) Lymph # (Auto) [place] # (Auto) Seg Neutrophils % Seg Neuts % (Manual) Lymphocytes % (Manual) Monocytes % (Manual) Basophils % (Manual) Seg Neutrophils # Seg Neutrophils # Man Lymphocytes # (Manual) Monocytes # (Manual) Eosinophils # (Manual) Basophils # (Manual) PT INR D-Dimer ABG pH POC ABG pCO2 POC ABG pO2 ABG pO2 ABG HCO3 ABG O2 Saturation ABG Base Excess ABG Hemoglobin ABG Oxyhemoglobin ABG Potassium ABG Glucose Oxyhemoglobin Carboxyhemoglobin Sodium Potassium Chloride Carbon Dioxide BUN Creatinine Glucose POC Glucose 135 H 133 H Calcium Ferritin Total Bilirubin Alkaline Phosphatase Lactate Dehydrogenase Troponin T 0.113 H* C-Reactive Protein Total Protein Albumin Prealbumin LDL Cholesterol Direct Arterial Blood Glucose Arterial Blood Ionized Calcium Urine WBC (Auto) 03/23/20 03/23/20 03/23/20 01:47 06:21 07:57 WBC RBC Hgb Hct MCV MCH RDW Plt Count Lymph % (Auto) Lymph # (Auto) [place] # (Auto) Seg Neutrophils % Seg Neuts % (Manual) Lymphocytes % (Manual) Monocytes % (Manual) Basophils % (Manual) Seg Neutrophils # Seg Neutrophils # Man Lymphocytes # (Manual) Monocytes # (Manual) Eosinophils # (Manual) Basophils # (Manual) PT INR D-Dimer ABG pH POC ABG pCO2 POC ABG pO2 ABG pO2 ABG HCO3 ABG O2 Saturation ABG Base Excess ABG Hemoglobin ABG Oxyhemoglobin ABG Potassium ABG Glucose Oxyhemoglobin Carboxyhemoglobin Sodium Potassium Chloride Carbon Dioxide BUN Creatinine Glucose POC Glucose 130 H Calcium Ferritin Total Bilirubin Alkaline Phosphatase Lactate Dehydrogenase Troponin T 0.143 H* D 0.105 H* D C-Reactive Protein Total Protein Albumin Prealbumin LDL Cholesterol Direct Arterial Blood Glucose Arterial Blood Ionized Calcium Urine WBC (Auto) 03/23/20 03/24/20 03/24/20 12:02 05:33 07:15 WBC 18.0 H RBC Hgb 11.0 L Hct 34.0 L MCV MCH RDW 17.4 H Plt Count 520 H Lymph % (Auto) Lymph # (Auto) [place] # (Auto) Seg Neutrophils % Seg Neuts % (Manual) 88.0 H Lymphocytes % (Manual) 7.0 L Monocytes % (Manual) Basophils % (Manual) Seg Neutrophils # Seg Neutrophils # Man 15.8 H Lymphocytes # (Manual) Monocytes # (Manual) Eosinophils # (Manual) Basophils # (Manual) PT INR D-Dimer ABG pH POC ABG pCO2 POC ABG pO2 ABG pO2 ABG HCO3 ABG O2 Saturation ABG Base Excess ABG Hemoglobin ABG Oxyhemoglobin ABG Potassium ABG Glucose Oxyhemoglobin Carboxyhemoglobin Sodium Potassium Chloride Carbon Dioxide BUN Creatinine Glucose POC Glucose 137 H 112 H Calcium Ferritin Total Bilirubin Alkaline Phosphatase Lactate Dehydrogenase Troponin T C-Reactive Protein Total Protein Albumin Prealbumin LDL Cholesterol Direct Arterial Blood Glucose Arterial Blood Ionized Calcium Urine WBC (Auto) 03/24/20 03/24/20 03/24/20 07:15 11:22 23:30 WBC RBC Hgb Hct MCV MCH RDW Plt Count Lymph % (Auto) Lymph # (Auto) [place] # (Auto) Seg Neutrophils % Seg Neuts % (Manual) Lymphocytes % (Manual) Monocytes % (Manual) Basophils % (Manual) Seg Neutrophils # Seg Neutrophils # Man Lymphocytes # (Manual) Monocytes # (Manual) Eosinophils # (Manual) Basophils # (Manual) PT INR D-Dimer ABG pH POC ABG pCO2 POC ABG pO2 ABG pO2 ABG HCO3 ABG O2 Saturation ABG Base Excess ABG Hemoglobin ABG Oxyhemoglobin ABG Potassium ABG Glucose Oxyhemoglobin Carboxyhemoglobin Sodium Potassium Chloride 96.6 L Carbon Dioxide 38 H BUN Creatinine < 0.2 L Glucose 141 H POC Glucose 130 H 120 H Calcium Ferritin Total Bilirubin Alkaline Phosphatase Lactate Dehydrogenase Troponin T C-Reactive Protein Total Protein Albumin Prealbumin LDL Cholesterol Direct Arterial Blood Glucose Arterial Blood Ionized Calcium Urine WBC (Auto) 03/25/20 03/25/20 03/25/20 05:48 17:53 23:18 WBC RBC Hgb Hct MCV MCH RDW Plt Count Lymph % (Auto) Lymph # (Auto) [place] # (Auto) Seg Neutrophils % Seg Neuts % (Manual) Lymphocytes % (Manual) Monocytes % (Manual) Basophils % (Manual) Seg Neutrophils # Seg Neutrophils # Man Lymphocytes # (Manual) Monocytes # (Manual) Eosinophils # (Manual) Basophils # (Manual) PT INR D-Dimer ABG pH POC ABG pCO2 POC ABG pO2 ABG pO2 ABG HCO3 ABG O2 Saturation ABG Base Excess ABG Hemoglobin ABG Oxyhemoglobin ABG Potassium ABG Glucose Oxyhemoglobin Carboxyhemoglobin Sodium Potassium Chloride Carbon Dioxide BUN Creatinine Glucose POC Glucose 124 H 109 H 131 H Calcium Ferritin Total Bilirubin Alkaline Phosphatase Lactate Dehydrogenase Troponin T C-Reactive Protein Total Protein Albumin Prealbumin LDL Cholesterol Direct Arterial Blood Glucose Arterial Blood Ionized Calcium Urine WBC (Auto) 03/26/20 03/26/20 03/26/20 05:21 08:49 08:49 WBC 19.7 H RBC Hgb 10.7 L Hct 33.5 L MCV MCH 27 L RDW 17.1 H Plt Count 480 H Lymph % (Auto) 5.7 L Lymph # (Auto) 1.1 L [place] # (Auto) 1.2 H Seg Neutrophils % 87.7 H Seg Neuts % (Manual) Lymphocytes % (Manual) Monocytes % (Manual) Basophils % (Manual) Seg Neutrophils # 17.2 H Seg Neutrophils # Man Lymphocytes # (Manual) Monocytes # (Manual) Eosinophils # (Manual) Basophils # (Manual) PT INR D-Dimer ABG pH POC ABG pCO2 POC ABG pO2 ABG pO2 ABG HCO3 ABG O2 Saturation ABG Base Excess ABG Hemoglobin ABG Oxyhemoglobin ABG Potassium ABG Glucose Oxyhemoglobin Carboxyhemoglobin Sodium Potassium Chloride 97.2 L Carbon Dioxide 36 H BUN Creatinine < 0.2 L Glucose 127 H POC Glucose 116 H Calcium Ferritin Total Bilirubin Alkaline Phosphatase Lactate Dehydrogenase Troponin T C-Reactive Protein Total Protein Albumin Prealbumin LDL Cholesterol Direct Arterial Blood Glucose Arterial Blood Ionized Calcium Urine WBC (Auto) 03/26/20 03/26/20 03/26/20 11:38 18:44 23:06 WBC RBC Hgb Hct MCV MCH RDW Plt Count Lymph % (Auto) Lymph # (Auto) [place] # (Auto) Seg Neutrophils % Seg Neuts % (Manual) Lymphocytes % (Manual) Monocytes % (Manual) Basophils % (Manual) Seg Neutrophils # Seg Neutrophils # Man Lymphocytes # (Manual) Monocytes # (Manual) Eosinophils # (Manual) Basophils # (Manual) PT INR D-Dimer ABG pH POC ABG pCO2 POC ABG pO2 ABG pO2 ABG HCO3 ABG O2 Saturation ABG Base Excess ABG Hemoglobin ABG Oxyhemoglobin ABG Potassium ABG Glucose Oxyhemoglobin Carboxyhemoglobin Sodium Potassium Chloride Carbon Dioxide BUN Creatinine Glucose POC Glucose 120 H 111 H 134 H Calcium Ferritin Total Bilirubin Alkaline Phosphatase Lactate Dehydrogenase Troponin T C-Reactive Protein Total Protein Albumin Prealbumin LDL Cholesterol Direct Arterial Blood Glucose Arterial Blood Ionized Calcium Urine WBC (Auto) 03/27/20 03/27/20 03/27/20 05:41 05:59 05:59 WBC 18.6 H RBC Hgb 10.1 L Hct 31.4 L MCV MCH RDW 17.2 H Plt Count Lymph % (Auto) 8.0 L Lymph # (Auto) [place] # (Auto) 1.2 H Seg Neutrophils % 84.7 H Seg Neuts % (Manual) Lymphocytes % (Manual) Monocytes % (Manual) Basophils % (Manual) Seg Neutrophils # 15.8 H Seg Neutrophils # Man Lymphocytes # (Manual) Monocytes # (Manual) Eosinophils # (Manual) Basophils # (Manual) PT INR D-Dimer ABG pH POC ABG pCO2 POC ABG pO2 ABG pO2 ABG HCO3 ABG O2 Saturation ABG Base Excess ABG Hemoglobin ABG Oxyhemoglobin ABG Potassium ABG Glucose Oxyhemoglobin Carboxyhemoglobin Sodium Potassium Chloride Carbon Dioxide 34 H BUN Creatinine < 0.2 L Glucose 127 H POC Glucose 129 H Calcium Ferritin Total Bilirubin Alkaline Phosphatase Lactate Dehydrogenase Troponin T C-Reactive Protein Total Protein Albumin Prealbumin LDL Cholesterol Direct Arterial Blood Glucose Arterial Blood Ionized Calcium Urine WBC (Auto) [facility] health notes reviewed: RT
[2020-03-27] MEDS: ENOXAPARIN 40 MG/0.4 ML INJ SUB-Q SCH (21:28)
[2020-03-27] MEDS: ZOLPIDEM 5 MG TAB PO PRN (21:36)
[2020-03-28] MEDS: MORPHINE 2 MG/1 ML INJ IV PRN ×5 (00:53→20:33)
[2020-03-28] MEDS: GLYCOPYRROLATE 1 MG TAB PO SCH ×3 (08:56→20:34)
[2020-03-28] MEDS: TAMSULOSIN 0.4 MG CAP PO SCH (09:09)
[2020-03-28] MEDS: LANSOPRAZOLE 30 MG SOLUTAB FEEDTUBE SCH (09:09)
[2020-03-28] MEDS: METOPROLOL TARTRATE 25 MG TAB PO SCH ×2 (10:09→21:13)
--- NOTE | 2020-03-28 10:57 | Progress Note ---
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 Patient was on a trilogy machine for breathing 18/11. EMS arrived, patient had O2 sats in the 80s. EMS attempted to place patient on their CPAP machine, hill john patient did not tolerate. Patient was admitted to the ICU with diagnosis of acute hypoxic respiratory failure and placed on BiPAP. Patient initially tolerated but later deteriorated with respiratory status. CTA chest showed no PE but significant for bilateral pneumonia. Doppler ultrasound also negative for DVT. COVID-19 test ordered. Due to persistent hypoxia, patient was intubated on 02/26/2020 at 1500. Patient now on mechanical ventilation in the ICU. 02/26/2020. Blood cultures are negative x48 hours and Covid testing negative as well. Continue antibiotics per ID recommendations for community-acquired bilateral pneumonia. Cardiology consultation for elevated troponin. Check echocardiogram. 02/27/2020. Events of yesterday noted with asystole following V. fib arrest. Patient currently on AC mode rate 20, tidal volume 400, FiO2 50% and a PEEP of 6. Follow-up echocardiogram for elevated troponin. Cardiology suspects NSTEMI Type 2 in the setting of acute resp failure. Chest CTA and BLE Dopplers neg. we will discontinue Decadron given the Covid PCR is negative. 02/25/2020. CTA of the chest reveals no PE but does illustrate the bilateral pneumonia. Doppler ultrasound also negative for DVT. Blood cultures are pending. Await COVID-19 testing. Patient currently requiring BiPAP IPAP 24/EPAP 6 with FiO2 of 25%. Continue O2 and BiPAP as clinically indicated. ID and pulmonary consulted. 02/26/2020. Blood cultures are negative x48 hours and Covid testing negative as well. Continue antibiotics per ID recommendations for community-acquired bilateral pneumonia. Cardiology consultation for elevated troponin. Check echocardiogram. 02/27/2020. Events of yesterday noted with asystole following V. fib arrest. Patient currently on AC mode rate 20, tidal volume 400, FiO2 50% and a PEEP of 6. Follow-up echocardiogram for elevated troponin. Cardiology suspects NSTEMI Type 2 in the setting of acute resp failure. Chest CTA and BLE Dopplers neg. we will discontinue Decadron given the Covid PCR is negative. 02/28/2020. I spoke with the sister Felisa Eli who is the power of corporate associate attorney regarding advanced directives and she instructed me that she would like to continue with aggressive care at this time. I informed her of the guarded prognosis and high mortality/morbidity and she voiced understanding. Patient currently with AC mode ventilation rate 18, tidal volume 400, FiO2 40% and a PEEP of 6. Continue antibiotics for pneumonia. ID previously consulted. Also consult neurology with regards to ALS. 02/29/2020; patient is intubated and on CPAP patient is alert and oriented. Patient has ALS. Dr. Álvarez spoke with his sister and she wants aggressive care. Continue antibiotics for pneumonia. Neurology consulted for ALS. Prognosis poor 03/01/2020; patient is intubated and on CPAP, patient is alert and oriented. I spoke with his 2 sisters about the management plan. 03/02/2020; patient is intubated and on CPAP. Patient was alert and oriented. I spoke with Dr. mohr and he thinks patient may need mechanical ventilation, likely his disease progressed. Dr. Flowers did debridement this morning. 03/03/2020; patient is intubated and on CPAP, patient was on trilogy and BiPAP at home. Patient has ALS. on spontaneous breathing trial. Patient is alert and oriented but quadriplegic. Patient has severe bilateral pneumonia and is on cefepime and Vanco, ID is following. Patient has sacral decubitus ulcer and debridement was done by Dr. Flowers and there is no osteomyelitis. 03/05. Patient still on broad-spectrum antibiotics. Status post sacral decubitus ulcer debridements-no osteomyelitis. Patient is on AC 25/400/30% PEEP 5. No blood gas results today. 03/06. Plan for tracheostomy by surgery. Still remains intubated. Labs reviewed-sodium 150. Started on free water 200 every 8hr. trend sodium. 03/07: s/p trach placement today, patient placed back on mechanical ventilation with trach. Plan to resume tube feeding with NG tube. Continue to monitor vitals, monitor BMP. 03/08: Patient noted to have distended abdomen with low urinary output. Obtain bladder scan rule out urine retention, UA and urine culture, continue to follow clinically. 03/09: Patient noted to have low blood pressure with SBP as low as 70s. Ordered for 500 mils normal saline bolus. CT abdomen showed bladder outlet obstruction, urology consulted. 03/10: placed on drake by urology o/n, improved urine outpt. cont to monitor BMP. resuded TF - cont free water with TF. wean off from vent as tolerated. 03/11: Vitals stable. cont TF, wean off from vent as tolerated. start on 1/2 NS for hypernatremia - follow BMP 03/12: wean off vent as tolerated, plan for speech eval, cont Tf for now, cont iv fluid 03/13: unable to wean off from vent, unable to do speech therapy eval. will need PEG tube, cont supportive care for now, cont NG tube feeding 03/14: consulted GI for PEg placemnet, cont supportive care. remains on vent at night 03/15: Discussed with GI, plan for PEG tube placement possibly tomorrow. Continue supportive care and wean off from vent as tolerated. Hold Lovenox dose tonight. 03/16: family didnot consent for PEG placement yesterday. I spoke with the daughter today and she is now agreeable for PEG tube. I explained the necessity of the procedure with RN to the patient also and he nodded started on tube feeding, for the procedure. will cont supportive care. planned for PEG tube placement tomorrow. 03/17: s/p PEG placement today, patient tolerated well, cont supportive care 03/18: Started on tube feeding with new PEG tube, continue to wean off vent as tolerated 03/19: cont to monitor with supportive care, wean off vent as tolerated 03/20: Continue to wean off vent as tolerated -but failing weaning trial. Still requiring vent support at night. Currently on PEG tube for tube feed. 03/21. Pt with PSV trials with FiO@ 30%, PEEP 6, PS 10. Currently on PEG tube for tube feed. 03/22/2020. Continue PSV trials per pulmonary. Continue bronchodilators. Patient tolerating tube feedings. Continue Robinul for secretion control. 03/23/2020. Continue PSV trials per pulmonary. Continue bronchodilators. Continue Scopolamine and Robinul for secretion control. Trach care/airway management. Mobility protocols for pressure ulcer prophylaxis. LTAC evaluation per case management 03/24/2020. Continue PSV trials with current settings pressure support 10, PEEP 6 and FiO2 30%. Continue bronchodilators/nebulizer. Continue Scopolamine and Robinul for secretion control. Trach care/airway management. Mobility protocols for pressure ulcer prophylaxis. LTAC evaluation per case management 03/25/2020. Pulmonary to proceed with T-piece trials today. Continue bronchodilators/nebulizer. Continue Scopolamine and Robinul for secretion control. Trach care/airway management. Mobility protocols for pressure ulcer prophylaxis. 03/26/2020. Patient currently with PSV 10/6 at FiO2 of 30%. Continue weaning and T-piece trials per protocol. Continue bronchodilators/nebulizer. Continue Scopolamine and Robinul for secretion control. Trach care/airway management. Mobility protocols for pressure ulcer prophylaxis. Continue tube feeding with aspiration precautions. 03/27/2020. Patient currently with PSV 10/6 at FiO2 of 30%. Continue weaning and T-piece trials per protocol. Continue bronchodilators/nebulizer. Continue Scopolamine and Robinul for secretion control. Trach care/airway management. Mobility protocols for pressure ulcer prophylaxis. Continue tube feeding with aspiration precautions. 03/28. Had temp 100.7F. He has been off antibiotics. Will send blood culture, ua, urine culture and chest xray The high probability of a clinically significant, sudden or life threatening deterioration of the [cardiac and respiratory] system(s) required my full and direct attention, intervention and personal management. The aggregate critical care time was [32] minutes. This time is in addition to time spent performing reported procedures but includes the following: [x] Data Review and interpretation [x] Patient assessment and monitoring of vital signs [x] Documentation [x] Medication orders and management Assessment and Plan --Acute hypoxic hypercapnic respiratory failure; Intubated on mechanical ventilation. Etiology secondary to sepsis, ALS, multifocal pneumonia (Covid negative). --ALS - Stable --Elevated D-dimers; CTA chest, lower extremity venous Doppler both are negative Lovenox DVT prophylaxis --Bilateral pneumonia; probably community-acquired Resolved --Sepsis secondary to pneumonia Resolved ---Fever today. Check blood cultures, ua, urine culture and chest xray --DVT prophylaxis; Lovenox Hospitalist Physical - Constitutional Vitals: Temp Pulse Resp BP Pulse Ox 100.7 F H 121 H 12 87/66 100 03/28/20 03:21 03/28/20 10:45 03/28/20 10:45 03/28/20 10:45 03/28/20 10:45 General appearance: Present: mild distress, other (Intubated on mechanical ventilation) HEART Score - HEART Score Troponin: Troponin T 0.105 ng/mL (0.00-0.029) H* D 03/23/20 07:57 Results - Labs CBC & Chem 7: 03/27/20 05:59 03/27/20 05:59 Labs: Laboratory Last Values WBC 18.6 K/mm3 (4.5-11.0) H 03/27/20 05:59 RBC 3.65 M/mm3 (3.65-5.03) 03/27/20 05:59 Hgb 10.1 gm/dl (11.8-15.2) L 03/27/20 05:59 Hct 31.4 % (35.5-45.6) L 03/27/20 05:59 MCV 86 fl (84-94) 03/27/20 05:59 MCH 28 pg (28-32) 03/27/20 05:59 MCHC 32 % (32-34) 03/27/20 05:59 RDW 17.2 % (13.2-15.2) H 03/27/20 05:59 Plt Count 422 K/mm3 (140-440) 03/27/20 05:59 Lymph % (Auto) 8.0 % (13.4-35.0) L 03/27/20 05:59 [place] % (Auto) 6.3 % (0.0-7.3) 03/27/20 05:59 Eos % (Auto) 0.6 % (0.0-4.3) 03/27/20 05:59 Baso % (Auto) 0.4 % (0.0-1.8) 03/27/20 05:59 Lymph # (Auto) 1.5 K/mm3 (1.2-5.4) 03/27/20 05:59 [place] # (Auto) 1.2 K/mm3 (0.0-0.8) H 03/27/20 05:59 Eos # (Auto) 0.1 K/mm3 (0.0-0.4) 03/27/20 05:59 Baso # (Auto) 0.1 K/mm3 (0.0-0.1) 03/27/20 05:59 Add Manual Diff Complete 03/24/20 07:15 Total Counted 100 03/24/20 07:15 Seg Neutrophils % 84.7 % (40.0-70.0) H 03/27/20 05:59 Seg Neuts % (Manual) 88.0 % (40.0-70.0) H 03/24/20 07:15 Band Neutrophils % 0 % 03/24/20 07:15 Lymphocytes % (Manual) 7.0 % (13.4-35.0) L 03/24/20 07:15 Reactive Lymphs % (Man) 0 % 03/24/20 07:15 Monocytes % (Manual) 1.0 % (0.0-7.3) 03/24/20 07:15 Eosinophils % (Manual) 2.0 % (0.0-4.3) 03/24/20 07:15 Basophils % (Manual) 0 % (0.0-1.8) 03/24/20 07:15 Metamyelocytes % 1.0 % 03/24/20 07:15 Myelocytes % 1.0 % 03/24/20 07:15 Promyelocytes % 0 % 03/24/20 07:15 Blast Cells % 0 % 03/24/20 07:15 Nucleated RBC % Not Reportable 03/24/20 07:15 Seg Neutrophils # 15.8 K/mm3 (1.8-7.7) H 03/27/20 05:59 Seg Neutrophils # Man 15.8 K/mm3 (1.8-7.7) H 03/24/20 07:15 Band Neutrophils # 0.0 K/mm3 03/24/20 07:15 Lymphocytes # (Manual) 1.3 K/mm3 (1.2-5.4) 03/24/20 07:15 Abs React Lymphs (Man) 0.0 K/mm3 03/24/20 07:15 Monocytes # (Manual) 0.2 K/mm3 (0.0-0.8) 03/24/20 07:15 Eosinophils # (Manual) 0.4 K/mm3 (0.0-0.4) 03/24/20 07:15 Basophils # (Manual) 0.0 K/mm3 (0.0-0.1) 03/24/20 07:15 Metamyelocytes # 0.2 K/mm3 03/24/20 07:15 Myelocytes # 0.2 K/mm3 03/24/20 07:15 Promyelocytes # 0.0 K/mm3 03/24/20 07:15 Blast Cells # 0.0 K/mm3 03/24/20 07:15 WBC Morphology Not Reportable 03/24/20 07:15 Hypersegmented Neuts Not Reportable 03/24/20 07:15 Hyposegmented Neuts Not Reportable 03/24/20 07:15 Hypogranular Neuts Not Reportable 03/24/20 07:15 Smudge Cells Not Reportable 03/24/20 07:15 Toxic Granulation Not Reportable 03/24/20 07:15 Toxic Vacuolation Not Reportable 03/24/20 07:15 Dohle Bodies Not Reportable 03/24/20 07:15 Pelger-Huet Anomaly Not Reportable 03/24/20 07:15 Robert Rods Not Reportable 03/24/20 07:15 Platelet Estimate Consistent w auto 03/24/20 07:15 Clumped Platelets Not Reportable 03/24/20 07:15 Plt Clumps, EDTA Not Reportable 03/24/20 07:15 Large Platelets Not Reportable 03/24/20 07:15 Giant Platelets Not Reportable 03/24/20 07:15 Platelet Satelliting Not Reportable 03/24/20 07:15 Plt Morphology Comment Not Reportable 03/24/20 07:15 RBC Morphology Not Reportable 03/24/20 07:15 Dimorphic RBCs Not Reportable 03/24/20 07:15 Polychromasia Few 03/24/20 07:15 Hypochromasia Not Reportable 03/24/20 07:15 Poikilocytosis Not Reportable 03/24/20 07:15 Anisocytosis Few 03/24/20 07:15 Microcytosis Not Reportable 03/24/20 07:15 Macrocytosis Not Reportable 03/24/20 07:15 Spherocytes Not Reportable 03/24/20 07:15 Pappenheimer Bodies Not Reportable 03/24/20 07:15 Sickle Cells Not Reportable 03/24/20 07:15 Target Cells Not Reportable 03/24/20 07:15 Tear Drop Cells Not Reportable 03/24/20 07:15 Ovalocytes Not Reportable 03/24/20 07:15 Stomatocytes Few 03/17/20 04:40 Helmet Cells Not Reportable 03/24/20 07:15 Gregory-Cortez Bodies Not Reportable 03/24/20 07:15 [place] Rings Not Reportable 03/24/20 07:15 Riaz Cells Not Reportable 03/24/20 07:15 Bite Cells Not Reportable 03/24/20 07:15 Crenated Cell Not Reportable 03/24/20 07:15 Elliptocytes Not Reportable 03/24/20 07:15 Acanthocytes (Spur) Not Reportable 03/24/20 07:15 Rouleaux Not Reportable 03/24/20 07:15 Hemoglobin C Crystals Not Reportable 03/24/20 07:15 Schistocytes Not Reportable 03/24/20 07:15 Malaria parasites Not Reportable 03/24/20 07:15 Colton Bodies Not Reportable 03/24/20 07:15 Hem Pathologist Commnt No 03/24/20 07:15 PT 15.6 Sec. (12.2-14.9) H 02/24/20 09:19 INR 1.21 (0.87-1.13) H 02/24/20 09:19 APTT 25.4 Sec. (24.2-36.6) 02/24/20 09:19 D-Dimer 1311.96 ng/mlDDU (0-234) H 02/24/20 09:19 ABG pH 7.371 (7.320-7.450) 03/08/20 12:34 POC ABG pCO2 63.1 mmHg (32.0-48.0) H 03/08/20 12:34 ABG pCO2 60.1 mm Hg 03/06/20 04:34 POC ABG pO2 90.5 mmHg (83-108) 03/08/20 12:34 ABG pO2 88.6 mm Hg (80.0-90.0) 03/06/20 04:34 POC ABG HCO3 35.7 03/08/20 12:34 ABG HCO3 37.9 mmol/L (20.0-26.0) H 03/06/20 04:34 ABG O2 Saturation 97.0 % (95.0-99.0) 03/06/20 04:34 ABG O2 Content 14.3 (0.0-44) 03/06/20 04:34 POC ABG Base Excess 8.7 03/08/20 12:34 ABG Base Excess 11.4 mmol/L (-2.0-3.0) H 03/06/20 04:34 ABG Hemoglobin 10.9 (12.0-17.5) L 03/08/20 12:34 ABG Oxyhemoglobin 95.9 (94-98) 03/08/20 12:34 ABG Carboxyhemoglobin 1.7 % (0.0-5.0) 03/06/20 04:34 ABG Methemoglobin 0.3 (0.0-1.5) 03/08/20 12:34 ABG Sodium 143.6 mmol/L (136.0-145.0) 03/08/20 12:34 ABG Potassium 3.8 mmol/L (3.40-4.50) 03/08/20 12:34 ABG Chloride 102.0 mmol/L (98-107) 03/08/20 12:34 ABG Glucose 176 mg/dL (65-95) H 03/08/20 12:34 Oxyhemoglobin 94.7 % (95.0-99.0) L 03/06/20 04:34 Carboxyhemoglobin 0.7 (0.5-1.5) 03/08/20 12:34 FiO2 30 03/08/20 12:34 Sodium 140 mmol/L (137-145) 03/27/20 05:59 Potassium 4.3 mmol/L (3.6-5.0) 03/27/20 05:59 Chloride 98.3 mmol/L (98-107) 03/27/20 05:59 Carbon Dioxide 34 mmol/L (22-30) H 03/27/20 05:59 Anion Gap 12 mmol/L 03/27/20 05:59 BUN 16 mg/dL (9-20) 03/27/20 05:59 Creatinine < 0.2 mg/dL (0.8-1.3) L 03/27/20 05:59 Estimated GFR > 60 ml/min 03/27/20 05:59 BUN/Creatinine Ratio 80 % 03/27/20 05:59 Glucose 127 mg/dL (75-100) H 03/27/20 05:59 POC Glucose 129 mg/dL (70-105) H 03/28/20 05:23 Lactic Acid 1.00 mmol/L (0.7-2.0) 02/24/20 12:07 Calcium 8.9 mg/dL (8.4-10.2) 03/27/20 05:59 Phosphorus 3.30 mg/dL (2.5-4.5) 03/20/20 14:18 Magnesium 2.00 mg/dL (1.7-2.3) 03/20/20 14:18 Ferritin 1715.0 ng/mL (30.0-300.0) H 02/24/20 10:01 Total Bilirubin 0.60 mg/dL (0.1-1.2) 03/08/20 06:43 AST 34 units/L (5-40) 03/08/20 06:43 ALT 14 units/L (7-56) 03/08/20 06:43 Alkaline Phosphatase 56 units/L (35-129) 03/08/20 06:43 Lactate Dehydrogenase 303 units/L (91-180) H 02/24/20 09:19 Total Creatine Kinase 101 units/L (55-170) 02/24/20 19:35 CK-MB (CK-2) 3.5 ng/mL (0.0-4.0) 02/24/20 19:35 CK-MB (CK-2) Rel Index 3.4 (0-4) 02/24/20 19:35 Troponin T 0.105 ng/mL (0.00-0.029) H* D 03/23/20 07:57 C-Reactive Protein 4.70 mg/dL (0.00-1.30) H 02/28/20 11:05 NT-Pro-B Natriuret Pep 48.30 pg/mL (0-900) 02/24/20 09:19 Total Protein 5.9 g/dL (6.3-8.2) L 03/08/20 06:43 Albumin 3.2 g/dL (3.9-5) L 03/08/20 06:43 Albumin/Globulin Ratio 1.2 % 03/08/20 06:43 Prealbumin 0.090 g/L (0.200-0.400) L 02/28/20 12:54 Triglycerides 34 mg/dL (2-149) 03/22/20 18:00 Cholesterol 104 mg/dL (50-199) 03/22/20 18:00 LDL Cholesterol Direct 54 mg/dL (50-130) 03/22/20 18:00 HDL Cholesterol 40 mg/dL (40-59) 03/22/20 18:00 Cholesterol/HDL Ratio 2.60 % 03/22/20 18:00 Procalcitonin 0.16 ng/mL (<0.15) 03/09/20 08:35 Arterial Blood Glucose 176 mg/dL (65-95) H 03/08/20 12:34 Arterial Blood Ionized Calcium 4.5 mg/dL (4.6-5.3) L 03/08/20 12:34 Urine Color Yellow (Yellow) 03/08/20 08:57 Urine Turbidity Clear (Clear) 03/08/20 08:57 Urine pH 6.0 (5.0-7.0) 03/08/20 08:57 Ur Specific North 1.017 (1.003-1.030) 03/08/20 08:57 Urine Protein <15 mg/dl mg/dL (Negative) 03/08/20 08:57 Urine Glucose (UA) Neg mg/dL (Negative) 03/08/20 08:57 Urine Ketones Neg mg/dL (Negative) 03/08/20 08:57 Urine Blood Neg (Negative) 03/08/20 08:57 Urine Nitrite Neg (Negative) 03/08/20 08:57 Urine Bilirubin Neg (Negative) 03/08/20 08:57 Urine Urobilinogen < 2.0 mg/dL (<2.0) 03/08/20 08:57 Ur Leukocyte Esterase Neg (Negative) 03/08/20 08:57 Urine WBC (Auto) 10.0 /HPF (0.0-6.0) H 03/08/20 08:57 Urine RBC (Auto) 13.0 /HPF (0.0-6.0) 03/08/20 08:57 U Epithel Cells (Auto) < 1.0 /HPF (0-13.0) 03/08/20 08:57 Urine Bacteria (Auto) 2+ /HPF (Negative) 03/08/20 08:57 Urine Mucus Few /HPF 03/08/20 08:57 Urine Yeast (Budding) 3+ /HPF 03/08/20 08:57 Vancomycin Trough 8.0 ug/mL (5.0-20.0) 03/04/20 08:59 Coronavirus (PCR) Negative (Negative) 02/25/20 09:03 - Diagnostic Impressions Diagnostic Impressions: Echocardiogram 02/26/20 10:41 Transthoracic Echocardiogram Indication: Elevated Trop BP: 116/75 HR: 85 Conclusions *Global left ventricular wall motion and contractility are within normal limits. *The estimated ejection fraction is 50-55%. *Abnormal left ventricular diastolic filling is observed, consistent with impaired relaxation. *There is no pericardial effusion. Findings Left Ventricle: The left ventricular chamber size is normal. Global left ventricular wall motion and contractility are within normal limits. Global left ventricular systolic function is normal. The estimated ejection fraction is 50-55%. Abnormal left ventricular diastolic filling is observed, consistent with impaired relaxation. Left Atrium: The left atrial chamber size is normal. Right Ventricle: The right ventricular cavity size is normal. Right Atrium: The right atrial cavity size is normal. Aortic Valve: Mild aortic leaflet calcification is visualized. There is no evidence of aortic regurgitation. Mitral Valve: The mitral valve leaflets are mildly thickened. There is no evidence of mitral regurgitation. Tricuspid Valve: The tricuspid valve leaflets are normal. There is trace tricuspid regurgitation. The right ventricular systolic pressure is calculated at 29 mmHg. Pulmonic Valve: The pulmonic valve is not well visualized. Pericardium: There is no pericardial effusion. Aorta: The aorta appears normal. Venous: The inferior vena cava is dilated. There is less than 50% respiratory change in the inferior vena cava dimension. Measurements Chambers 2D Name Value Normal Range IVSd (2D) 0.97 cm (0.6 - 1.1) LVPWd (2D) 0.93 cm (0.6 - 1.1) LVIDd (2D) 4 cm (3.7 - 5.6) LVIDs (2D) 2.73 cm (2 - 3.8) LV FS (2D) 31.67 % - EF Teichholz (2D) 60.23 % - Ao root diameter (2D) 3.51 cm (2 - 3.7) Volumes/Mass Name Value Normal Range LA ESV SP 4CH (A/L) 8.43 ml - LA ESV SP 2CH (A/L) 18.89 ml - LA ESV BP (A/L) 13.02 ml - LA ESV BP (A/L) index 8.8 ml/m2 - LA ESV SP 4CH (MOD) 7.22 ml - LA ESV SP 2CH (MOD) 18.15 ml - LA ESV BP (MOD) 11.47 ml - LA ESV BP (MOD) index 7.75 ml/m2 - Diastolic/Systolic Function Name Value Normal Range MV E-wave Vmax 0.51 m/sec - MV deceleration time 180.22 msec - MV A-wave Vmax 0.62 m/sec - MV E:A ratio 0.82 ratio - Aortic Valve Name Value Normal Range AV Vmax 1.17 m/sec - AV VTI 19.71 cm - AV peak gradient 5.44 mmHg - AV mean gradient 3.38 mmHg - LVOT diameter 2.26 cm - LVOT Vmax 0.89 m/sec - LVOT VTI 13.72 cm - LVOT peak gradient 3.17 mmHg - LVOT mean gradient 1.67 mmHg - SV LVOT 55.03 ml - SHARAD (continuity Vmax) 3.06 cm2 - SHARAD (continuity VTI) 2.79 cm2 - Tricuspid Valve Name Value Normal Range TR Vmax 2.3 m/sec - TR peak gradient 21 mmHg - RAP 8 mmHg - RVSP 29 mmHg - IVC diameter 2.59 cm (1.2 - 2.3) Pulmonic Valve/Qp:Qs Name Value Normal Range PV acceleration time 68.51 msec - Drake/IV: Voiding Method Indwelling Catheter IV Catheter Type [Right Hand] Peripheral IV IV Catheter Type [Left Wrist] Peripheral IV IV Catheter Type [Right Peripheral IV Forearm] IV Catheter Type [Right Triple Lumen Cath Internal Jugular] IV Catheter Type [Left Forearm INT / Saline Lock ] IV Catheter Type [Right Triple Lumen Cath Femoral] IV Catheter Type [Right INT / Saline Lock Antecubital] Active Medications - Current Medications Current Medications: Generic Name Dose Route Start Last Admin Trade Name Freq PRN Reason Stop Dose Admin Acetaminophen 650 mg 02/24/20 15:13 03/08/20 00:10 Tylenol PO 650 mg Q4H PRN Administration Pain, Mild (1-3) Albuterol 2.5 mg 02/24/20 15:13 Proventil IH Q4HRT PRN Shortness Of Breath Lipase/Protease/Amylase 1 each 02/26/20 11:16 Pancreaze 10,500 Unit FEEDTUBE PRN PRN For Clogged Feeding Tube Bisacodyl 10 mg 03/12/20 18:00 03/15/20 17:50 Dulcolax SC 10 mg QDAY PRN Administration Bowel Movement Enoxaparin Sodium 40 mg 03/20/20 22:00 03/27/20 21:28 Enoxaparin SUB-Q 40 mg QDAY@2200 ALISA Administration Protocol Glycopyrrolate 2 mg 03/26/20 08:00 03/28/20 08:56 Robinul PO 2 mg TID AILSA Administration Lansoprazole 30 mg 02/28/20 10:00 03/28/20 09:09 Prevacid Solutab FEEDTUBE 30 mg QDAY ALISA Administration Metoprolol Tartrate 12.5 mg 02/24/20 22:00 03/28/20 10:09 Metoprolol PO Not Given BID ALISA Morphine Sulfate 2 mg 02/29/20 16:42 03/28/20 09:09 Morphine IV 2 mg Q4H PRN Administration Pain, Moderate (4-6) Scopolamine 1 each 03/03/20 14:00 03/27/20 10:12 Transderm-Scop TD 1 each Q3D ALISA Administration Simple Syrup 15 ml 02/26/20 11:16 Simple Syrup FEEDTUBE PRN PRN Hypoglycemia Simple Syrup 30 ml 02/26/20 11:16 Simple Syrup FEEDTUBE PRN PRN Hypoglycemia Sodium Bicarbonate 325 mg 02/26/20 11:16 Sodium Bicarbonate FEEDTUBE PRN PRN For Clogged Feeding Tube Tamsulosin HCl 0.4 mg 03/09/20 18:00 03/28/20 09:09 Flomax PO 0.4 mg QDAY ALISA Administration Zolpidem Tartrate 5 mg 03/24/20 14:53 03/27/20 21:36 Ambien PO 5 mg QHS PRN Administration Sleep Nutrition/Malnutrition Assess - Dietary Evaluation Nutrition/Malnutrition Findings: Nutrition Notes Start: 02/26/20 10:40 Freq: Status: Active Protocol: Document 03/21/20 13:36 LP (Rec: 03/21/20 13:41 LP [id number]) Nutrition Notes Initial or Follow up Reassessment Current Diagnosis Decubitus(Pressure Ulcer), Sepsis,Respiratory Failure Other Pertinent Diagnosis COVID-19 (-), ALS, pneumonia, Hip/buttock PU Current Diet Vital AF 1.2 at 75ml/hr (goal rate) Labs/Tests Na 136 Pertinent Medications Reviewed Height 6 ft Weight 66.4 kg Calvin Body Weight (kg) 80.90 BMI 19.8 Weight Status Appropriate Subjective/Other Information Pt continues tolerating TF at goal rate. PEG placed. Percent of energy/protein needs met: 100%/100% Burn Absent Trauma Absent GI Symptoms None Skin Integrity/Comment Pressure Ulcer Stage 2 Current % PO Negligible Minimum of two criteria Yes Body Fat Depletion Mild depletion (non-severe) Muscle Mass Mild Depletion (non-severe) Reduced Framework Developer Strength Measurably Reduced (severe) #3 Nutrition Diagnosis Malnutrition Diagnosis Progress(for reassessment Continues documentation) #2 Nutrition Diagnosis Inadequate oral intake Diagnosis Progress(for reassessment Continues documentation) #1 Nutrition Diagnosis Increased nutrient needs ( specify in comment below) Diagnosis Progress(for reassessment Continues documentation) Is patient on ventilator? Yes Is Patient Ambulatory and/or Out of Bed No REE-([facility]-confined to bed) 1825.272 Kcal/Kg value to use for calculation 35 Approximate Energy Requirements Using 2324 kcal/Kg Calculation Used for Recommendations Kcal/kg Additional Notes Protein needs: 80-133 g (1.2-2 g/ kg ABW) Fluid: 1ml/kcal Nutrition Intervention Change Diet Order: Continue TF Nutrition Support: Vital AF 1.2 at 75ml/hr. Flush 200ml q4h For hyponatremia, flush 150 mL q4h Kcal 2,160 Protein (gm) 135 Fluid (mL) 1,460 Add Supplement/Snack (indicate name/kcal Will BID /protein ) Provides kCal: 190 Provides Protein (gm) 5 Goal #1 Meet at least 80% of energy and protein needs via TF Goal #2 Wound healing Anticipated Discharge Needs: Unable to determine at this time Follow-Up By: 03/28/20 Additional Comments Follow for stable TF
[2020-03-28 11:11] LABS: Hematocrit 30.8 % (35.5-45.6); Mean Corpuscular HGB Conc 32 % (32-34); Mean Corpuscular Volume 85 fl (84-94); Platelet Count 378 K/mm3 (140-440); Red Blood Count 3.62 M/mm3 (3.65-5.03); Red Cell Distribution Width 16.4 % (13.2-15.2)
--- NOTE | 2020-03-28 11:12 | Progress Note ---
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 Respiratory Failure Severe Sepsis with Shock Bilateral Pneumonia (Possible aspiration) History of ALS on Trilogy Oropharyngeal Dysphagia PUI-COVID Acute toxic metabolic encephalopathy Elevated D-dimer Elevated troponin possibly type 2 ischemia - continue daytime PSV trials - rest on AC overnight for now - PSV if fails t-piece trial during the day - continue to optimize electrolytes (prn BMP, Mg & PO4) - follow Hospice evaluation - continue care as below otherwise; - repeat CXR prn +/- bronchoscopy for mucus plugging / large volume atelectasis - continue to rest on AC qhs - LTAC evaluation is appropriate - continue Robinul & scopolamine for secretion control - prn electrolytes and optimize K+ & Mg 2+ for best respiratory muscle function - wound care per RN/WCN - continue Scopolamine patch for secretion control - wean supplemental oxygen for target O2 sat's > 92% acutely - bronchodilators with pulmonary hygiene per RT - VAP bundle addressed - continue lung protective strategies - continue bronchodilators with pulmonary hygiene per RT - wean per pulmonary driven protocols otherwise - sedation prn for target RASS 0 to -1 - s/p empiric antiinfectives per ID rec's (Rocephin and Zithromax) - s/p COVID-19 isolation (Airborne & Contact) - empiric Dexamethasone - follow COVID-19 test results (negative) - trend inflammatory markers to aid clinical decision making - enteral nutrition at goal rate as tolerated - Aspiration precautions - accuchecks with glycemic control per SSI (While critically ill target blood glucose of 140-180 mg/dL; avoid hypoglycemia) - avoid nephrotoxins, renally dose all medications - avoid benzodiazepine's, reduce the possibility of delirium - prn analgesia per CPOT score - Maintenance of sleep-wake cycle, avoid delirium - aspiration precautions - G.I. & VTE prophylaxis - PT/OT/ROM exercises - mobility protocols for pressure ulcer prophylaxis - Monitor hemodynamics closely - continue other care per attending / other consultants - discharge planning ongoing concurrently .... Re-evaluate in am & prn CONDITION: CRITICAL PROGNOSIS: GUARDED CODE STATUS: FULL CODE The high probability of a clinically significant, sudden or life-threatening deterioration of the [respiratory, cardiovascular & neurologic] system(s) required my full and direct attention, intervention and personal management. The aggregate critical care time was [34] minutes without overlap. Time includes spent on; [x] Data Review and interpretation [x] Patient assessment and monitoring of vital signs [x] Documentation [x] Medication orders and management Subjective Date of service: 03/28/20 Principal diagnosis: Ac on Ch Hypercapnic & hypoxemic Resp Failure; Severe Sepsis; Jamar PNA; ALS Interval history: Patient is seen today for: Acute on Chronic Hypercapnic & hypoxemic Respiratory Failure; Severe Sepsis with Shock; Bilateral Pneumonia (Possible aspiration); History of ALS on Trilogy; PUI-COVID; Acute toxic metabolic encephalopathy Seen and examined at bedside; 24hour events reviewed; nursing and respiratory care staff consulted; no adverse overnight events reported to me; resting in bed; remains on MVS; tentatively to discuss with Hospice rep; tolerating PSV with p-supp at 10 but failing t-piece trials; No N/V/F/C; "i'm tired" he mouths to me Objective Vital Signs - 12hr 03/27/20 03/27/20 03/27/20 23:16 23:30 23:46 Temperature Pulse Rate 113 H 112 H 113 H Pulse Rate [ From Monitor] Respiratory 22 16 15 Rate Blood Pressure 106/75 107/74 107/74 O2 Sat by Pulse 100 99 99 Oximetry 03/28/20 03/28/20 03/28/20 00:00 00:15 00:30 Temperature Pulse Rate 110 H 117 H 120 H Pulse Rate [ 110 H From Monitor] Respiratory 12 24 23 Rate Blood Pressure 103/69 107/74 109/70 O2 Sat by Pulse 99 100 98 Oximetry 03/28/20 03/28/20 03/28/20 00:45 01:00 01:15 Temperature Pulse Rate 116 H 110 H 108 H Pulse Rate [ From Monitor] Respiratory 17 13 14 Rate Blood Pressure 109/70 109/72 109/72 O2 Sat by Pulse 100 99 99 Oximetry 03/28/20 03/28/20 03/28/20 01:30 01:45 02:00 Temperature Pulse Rate 110 H 111 H 110 H Pulse Rate [ From Monitor] Respiratory 16 15 15 Rate Blood Pressure 115/71 115/71 113/70 O2 Sat by Pulse 99 100 99 Oximetry 03/28/20 03/28/20 03/28/20 02:15 02:30 02:45 Temperature Pulse Rate 111 H 113 H 111 H Pulse Rate [ From Monitor] Respiratory 14 13 14 Rate Blood Pressure 113/70 112/69 112/69 O2 Sat by Pulse 100 99 100 Oximetry 03/28/20 03/28/20 03/28/20 03:00 03:15 03:21 Temperature 100.7 F H Pulse Rate 114 H 113 H Pulse Rate [ From Monitor] Respiratory 14 16 Rate Blood Pressure 112/71 112/71 O2 Sat by Pulse 99 100 Oximetry 03/28/20 03/28/20 03/28/20 03:30 03:45 04:00 Temperature Pulse Rate 119 H 118 H 101 H Pulse Rate [ 120 H From Monitor] Respiratory 21 16 15 Rate Blood Pressure 118/71 118/71 104/68 O2 Sat by Pulse 99 100 100 Oximetry 03/28/20 03/28/20 03/28/20 04:15 04:30 04:45 Temperature Pulse Rate 115 H 105 H 119 H Pulse Rate [ From Monitor] Respiratory 24 14 23 Rate Blood Pressure 104/68 92/62 92/62 O2 Sat by Pulse 100 100 99 Oximetry 03/28/20 03/28/20 03/28/20 04:56 05:00 05:15 Temperature Pulse Rate 110 H 114 H 110 H Pulse Rate [ From Monitor] Respiratory 20 19 Rate Blood Pressure 92/62 108/75 108/75 O2 Sat by Pulse 98 99 99 Oximetry 03/28/20 03/28/20 03/28/20 05:30 05:45 06:00 Temperature Pulse Rate 111 H 107 H 122 H Pulse Rate [ From Monitor] Respiratory 15 12 22 Rate Blood Pressure 115/75 115/75 110/75 O2 Sat by Pulse 98 99 100 Oximetry 03/28/20 03/28/20 03/28/20 06:15 06:30 06:45 Temperature Pulse Rate 122 H 121 H 113 H Pulse Rate [ From Monitor] Respiratory 24 25 H 12 Rate Blood Pressure 110/75 113/76 113/76 O2 Sat by Pulse 100 98 99 Oximetry 03/28/20 03/28/20 03/28/20 07:00 07:15 07:30 Temperature Pulse Rate 123 H 124 H 120 H Pulse Rate [ From Monitor] Respiratory 24 22 12 Rate Blood Pressure 108/75 108/75 109/72 O2 Sat by Pulse 100 100 99 Oximetry 03/28/20 03/28/20 03/28/20 07:41 07:43 07:45 Temperature Pulse Rate 118 H 117 H 122 H Pulse Rate [ From Monitor] Respiratory 12 28 H Rate Blood Pressure 109/72 109/72 109/72 O2 Sat by Pulse 100 99 99 Oximetry 03/28/20 03/28/20 03/28/20 08:00 08:15 08:30 Temperature Pulse Rate 121 H 118 H 120 H Pulse Rate [ 113 H From Monitor] Respiratory 28 H 27 H 31 H Rate Blood Pressure 113/79 113/79 125/85 O2 Sat by Pulse 99 99 99 Oximetry 03/28/20 03/28/20 03/28/20 08:45 09:00 09:09 Temperature Pulse Rate 117 H 122 H Pulse Rate [ From Monitor] Respiratory 12 12 14 Rate Blood Pressure 125/85 95/71 O2 Sat by Pulse 100 99 Oximetry 03/28/20 03/28/20 03/28/20 09:15 09:30 09:45 Temperature Pulse Rate 119 H 110 H 118 H Pulse Rate [ From Monitor] Respiratory 12 12 13 Rate Blood Pressure 95/71 88/62 88/62 O2 Sat by Pulse 97 99 Oximetry 03/28/20 03/28/20 03/28/20 10:00 10:09 10:15 Temperature Pulse Rate 115 H 119 H 120 H Pulse Rate [ From Monitor] Respiratory 12 13 Rate Blood Pressure 89/59 89/59 89/59 O2 Sat by Pulse 100 Oximetry 03/28/20 03/28/20 10:30 10:45 Temperature Pulse Rate 121 H 121 H Pulse Rate [ From Monitor] Respiratory 11 L 12 Rate Blood Pressure 87/66 87/66 O2 Sat by Pulse 98 100 Oximetry Constitutional: no acute distress, other (thin middle aged male with normal respiratory effort at rest on MVS) Eyes: non-icteric ENT: oropharynx moist, other (S/P Tracheostomy) Neck: supple, no lymphadenopathy, no JVD Effort: mildly labored Ascultation: Bilateral: diminished breath sounds, rhonchi Percussion: Bilateral: not dull Cardiovascular: regular rate and rhythm, other (S1,S2, no murmurs) Gastrointestinal: normoactive bowel sounds, soft, non-tender, non-distended, other (+ distended but non tender suprapubis) Integumentary: normal, decubitus ulcer (sacral / gluteal) Extremities: no cyanosis, no edema, pulses normal, other (atrophic looking limbs) Neurologic: pupils equal and round, other (motor strength in extremities 1-2/5, awake, alert, mouths words to make needs known) Psychiatric: depressed CBC and BMP: 03/28/20 10:28 03/28/20 10:28 ABG, PT/INR, D-dimer: ABG ABG pH 7.371 (7.320-7.450) 03/08/20 12:34 POC ABG pCO2 63.1 mmHg (32.0-48.0) H 03/08/20 12:34 ABG pCO2 60.1 mm Hg 03/06/20 04:34 POC ABG pO2 90.5 mmHg (83-108) 03/08/20 12:34 ABG pO2 88.6 mm Hg (80.0-90.0) 03/06/20 04:34 POC ABG HCO3 35.7 03/08/20 12:34 ABG O2 Saturation 97.0 % (95.0-99.0) 03/06/20 04:34 PT/INR, D-dimer PT 15.6 Sec. (12.2-14.9) H 02/24/20 09:19 INR 1.21 (0.87-1.13) H 02/24/20 09:19 D-Dimer 1311.96 ng/mlDDU (0-234) H 02/24/20 09:19 Abnormal lab findings: Abnormal Labs 02/24/20 02/24/20 02/24/20 09:19 09:19 09:19 WBC 20.2 H RBC 5.05 H Hgb Hct MCV MCH RDW 15.3 H Plt Count Lymph % (Auto) Lymph # (Auto) [place] # (Auto) Seg Neutrophils % Seg Neuts % (Manual) 86.0 H Lymphocytes % (Manual) 1.0 L Monocytes % (Manual) Basophils % (Manual) Seg Neutrophils # Seg Neutrophils # Man 17.4 H Lymphocytes # (Manual) 0.2 L Monocytes # (Manual) Eosinophils # (Manual) Basophils # (Manual) PT 15.6 H INR 1.21 H D-Dimer 1311.96 H ABG pH POC ABG pCO2 POC ABG pO2 ABG pO2 ABG HCO3 ABG O2 Saturation ABG Base Excess ABG Hemoglobin ABG Oxyhemoglobin ABG Potassium ABG Glucose Oxyhemoglobin Carboxyhemoglobin Sodium 135 L Potassium 3.2 L Chloride 92.2 L Carbon Dioxide BUN 6 L Creatinine < 0.2 L Glucose 124 H POC Glucose Calcium Ferritin Total Bilirubin 2.30 H Alkaline Phosphatase 132 H Lactate Dehydrogenase Troponin T 0.080 H C-Reactive Protein Total Protein Albumin 3.6 L Prealbumin LDL Cholesterol Direct 41 L Arterial Blood Glucose Arterial Blood Ionized Calcium Urine WBC (Auto) 02/24/20 02/24/20 02/24/20 09:19 09:58 10:01 WBC RBC Hgb Hct MCV MCH RDW Plt Count Lymph % (Auto) Lymph # (Auto) [place] # (Auto) Seg Neutrophils % Seg Neuts % (Manual) Lymphocytes % (Manual) Monocytes % (Manual) Basophils % (Manual) Seg Neutrophils # Seg Neutrophils # Man Lymphocytes # (Manual) Monocytes # (Manual) Eosinophils # (Manual) Basophils # (Manual) PT INR D-Dimer ABG pH 7.176 L* POC ABG pCO2 POC ABG pO2 ABG pO2 91.2 H ABG HCO3 ABG O2 Saturation ABG Base Excess -4.6 L ABG Hemoglobin ABG Oxyhemoglobin ABG Potassium ABG Glucose Oxyhemoglobin 92.6 L Carboxyhemoglobin Sodium Potassium Chloride Carbon Dioxide BUN Creatinine Glucose POC Glucose Calcium Ferritin 1715.0 H Total Bilirubin Alkaline Phosphatase Lactate Dehydrogenase 303 H Troponin T C-Reactive Protein 26.10 H Total Protein Albumin Prealbumin LDL Cholesterol Direct Arterial Blood Glucose Arterial Blood Ionized Calcium Urine WBC (Auto) 02/24/20 02/24/20 02/24/20 11:52 13:45 19:35 WBC RBC Hgb Hct MCV MCH RDW Plt Count Lymph % (Auto) Lymph # (Auto) [place] # (Auto) Seg Neutrophils % Seg Neuts % (Manual) Lymphocytes % (Manual) Monocytes % (Manual) Basophils % (Manual) Seg Neutrophils # Seg Neutrophils # Man Lymphocytes # (Manual) Monocytes # (Manual) Eosinophils # (Manual) Basophils # (Manual) PT INR D-Dimer ABG pH 7.051 L* 7.300 L POC ABG pCO2 POC ABG pO2 ABG pO2 94.7 H 75.1 L ABG HCO3 18.0 L ABG O2 Saturation 93.5 L ABG Base Excess -6.8 L -7.8 L ABG Hemoglobin 13.2 L 11.9 L ABG Oxyhemoglobin ABG Potassium ABG Glucose Oxyhemoglobin 91.0 L 92.7 L Carboxyhemoglobin Sodium Potassium Chloride Carbon Dioxide BUN Creatinine Glucose POC Glucose Calcium Ferritin Total Bilirubin Alkaline Phosphatase Lactate Dehydrogenase Troponin T 0.034 H D C-Reactive Protein Total Protein Albumin Prealbumin LDL Cholesterol Direct Arterial Blood Glucose Arterial Blood Ionized Calcium Urine WBC (Auto) 02/25/20 02/25/20 02/25/20 04:00 04:00 12:26 WBC 22.9 H RBC Hgb Hct MCV 83 L MCH 27 L RDW Plt Count 468 H Lymph % (Auto) Lymph # (Auto) [place] # (Auto) Seg Neutrophils % Seg Neuts % (Manual) 89.0 H Lymphocytes % (Manual) 7.0 L Monocytes % (Manual) Basophils % (Manual) Seg Neutrophils # Seg Neutrophils # Man 20.4 H Lymphocytes # (Manual) Monocytes # (Manual) Eosinophils # (Manual) Basophils # (Manual) PT INR D-Dimer ABG pH POC ABG pCO2 POC ABG pO2 ABG pO2 ABG HCO3 ABG O2 Saturation ABG Base Excess ABG Hemoglobin ABG Oxyhemoglobin ABG Potassium 2.6 L ABG Glucose 142 H Oxyhemoglobin Carboxyhemoglobin Sodium Potassium 3.2 L Chloride Carbon Dioxide 18 L BUN Creatinine 0.2 L Glucose 114 H POC Glucose Calcium Ferritin Total Bilirubin Alkaline Phosphatase Lactate Dehydrogenase Troponin T C-Reactive Protein Total Protein Albumin 3.5 L Prealbumin LDL Cholesterol Direct Arterial Blood Glucose 142 H Arterial Blood Ionized Calcium Urine WBC (Auto) 02/26/20 02/26/20 02/26/20 15:58 17:00 23:43 WBC RBC Hgb Hct MCV MCH RDW Plt Count Lymph % (Auto) Lymph # (Auto) [place] # (Auto) Seg Neutrophils % Seg Neuts % (Manual) Lymphocytes % (Manual) Monocytes % (Manual) Basophils % (Manual) Seg Neutrophils # Seg Neutrophils # Man Lymphocytes # (Manual) Monocytes # (Manual) Eosinophils # (Manual) Basophils # (Manual) PT INR D-Dimer ABG pH 7.502 H POC ABG pCO2 POC ABG pO2 213.6 H ABG pO2 ABG HCO3 ABG O2 Saturation ABG Base Excess ABG Hemoglobin ABG Oxyhemoglobin 99.2 H ABG Potassium 2.9 L ABG Glucose 160 H Oxyhemoglobin Carboxyhemoglobin 0.4 L Sodium Potassium Chloride Carbon Dioxide BUN Creatinine Glucose POC Glucose 189 H 120 H Calcium Ferritin Total Bilirubin Alkaline Phosphatase Lactate Dehydrogenase Troponin T C-Reactive Protein Total Protein Albumin Prealbumin LDL Cholesterol Direct Arterial Blood Glucose 160 H Arterial Blood Ionized Calcium 4.5 L Urine WBC (Auto) 02/27/20 02/27/20 02/27/20 05:00 07:04 17:45 WBC RBC Hgb Hct MCV MCH RDW Plt Count Lymph % (Auto) Lymph # (Auto) [place] # (Auto) Seg Neutrophils % Seg Neuts % (Manual) Lymphocytes % (Manual) Monocytes % (Manual) Basophils % (Manual) Seg Neutrophils # Seg Neutrophils # Man Lymphocytes # (Manual) Monocytes # (Manual) Eosinophils # (Manual) Basophils # (Manual) PT INR D-Dimer ABG pH 7.524 H POC ABG pCO2 POC ABG pO2 ABG pO2 ABG HCO3 ABG O2 Saturation ABG Base Excess ABG Hemoglobin ABG Oxyhemoglobin ABG Potassium 3.0 L ABG Glucose 143 H Oxyhemoglobin Carboxyhemoglobin Sodium Potassium Chloride Carbon Dioxide BUN Creatinine Glucose POC Glucose 154 H 175 H Calcium Ferritin Total Bilirubin Alkaline Phosphatase Lactate Dehydrogenase Troponin T C-Reactive Protein Total Protein Albumin Prealbumin LDL Cholesterol Direct Arterial Blood Glucose 143 H Arterial Blood Ionized Calcium Urine WBC (Auto) 02/27/20 02/28/20 02/28/20 Unknown 00:21 04:15 WBC 18.7 H RBC Hgb Hct MCV MCH RDW Plt Count Lymph % (Auto) 8.7 L Lymph # (Auto) [place] # (Auto) 1.2 H Seg Neutrophils % 84.6 H Seg Neuts % (Manual) Lymphocytes % (Manual) Monocytes % (Manual) Basophils % (Manual) Seg Neutrophils # 15.9 H Seg Neutrophils # Man Lymphocytes # (Manual) Monocytes # (Manual) Eosinophils # (Manual) Basophils # (Manual) PT INR D-Dimer ABG pH POC ABG pCO2 POC ABG pO2 ABG pO2 ABG HCO3 ABG O2 Saturation ABG Base Excess ABG Hemoglobin ABG Oxyhemoglobin ABG Potassium ABG Glucose Oxyhemoglobin Carboxyhemoglobin Sodium Potassium 2.9 L* Chloride Carbon Dioxide 33 H D BUN Creatinine < 0.2 L Glucose 157 H POC Glucose 134 H Calcium Ferritin Total Bilirubin Alkaline Phosphatase Lactate Dehydrogenase Troponin T C-Reactive Protein Total Protein Albumin Prealbumin LDL Cholesterol Direct Arterial Blood Glucose Arterial Blood Ionized Calcium Urine WBC (Auto) 02/28/20 02/28/20 02/28/20 04:15 05:16 05:39 WBC RBC Hgb Hct MCV MCH RDW Plt Count Lymph % (Auto) Lymph # (Auto) [place] # (Auto) Seg Neutrophils % Seg Neuts % (Manual) Lymphocytes % (Manual) Monocytes % (Manual) Basophils % (Manual) Seg Neutrophils # Seg Neutrophils # Man Lymphocytes # (Manual) Monocytes # (Manual) Eosinophils # (Manual) Basophils # (Manual) PT INR D-Dimer ABG pH POC ABG pCO2 POC ABG pO2 ABG pO2 142.9 H ABG HCO3 34.1 H ABG O2 Saturation ABG Base Excess 8.3 H ABG Hemoglobin ABG Oxyhemoglobin ABG Potassium ABG Glucose Oxyhemoglobin Carboxyhemoglobin Sodium 151 H Potassium Chloride Carbon Dioxide 32 H BUN Creatinine 0.2 L Glucose 167 H POC Glucose 138 H Calcium Ferritin Total Bilirubin Alkaline Phosphatase Lactate Dehydrogenase Troponin T C-Reactive Protein Total Protein Albumin Prealbumin LDL Cholesterol Direct Arterial Blood Glucose Arterial Blood Ionized Calcium Urine WBC (Auto) 02/28/20 02/28/20 02/28/20 11:05 11:33 12:54 WBC RBC Hgb Hct MCV MCH RDW Plt Count Lymph % (Auto) Lymph # (Auto) [place] # (Auto) Seg Neutrophils % Seg Neuts % (Manual) Lymphocytes % (Manual) Monocytes % (Manual) Basophils % (Manual) Seg Neutrophils # Seg Neutrophils # Man Lymphocytes # (Manual) Monocytes # (Manual) Eosinophils # (Manual) Basophils # (Manual) PT INR D-Dimer ABG pH POC ABG pCO2 POC ABG pO2 ABG pO2 ABG HCO3 ABG O2 Saturation ABG Base Excess ABG Hemoglobin ABG Oxyhemoglobin ABG Potassium ABG Glucose Oxyhemoglobin Carboxyhemoglobin Sodium Potassium Chloride Carbon Dioxide BUN Creatinine Glucose POC Glucose 160 H Calcium Ferritin Total Bilirubin Alkaline Phosphatase Lactate Dehydrogenase Troponin T C-Reactive Protein 4.70 H Total Protein Albumin Prealbumin 0.090 L LDL Cholesterol Direct Arterial Blood Glucose Arterial Blood Ionized Calcium Urine WBC (Auto) 02/28/20 02/29/20 02/29/20 17:34 00:44 04:05 WBC 19.6 H RBC Hgb Hct MCV MCH 27 L RDW 15.4 H Plt Count Lymph % (Auto) Lymph # (Auto) [place] # (Auto) Seg Neutrophils % Seg Neuts % (Manual) 86.0 H Lymphocytes % (Manual) 7.0 L Monocytes % (Manual) Basophils % (Manual) Seg Neutrophils # Seg Neutrophils # Man 16.9 H Lymphocytes # (Manual) Monocytes # (Manual) 1.2 H Eosinophils # (Manual) Basophils # (Manual) PT INR D-Dimer ABG pH POC ABG pCO2 POC ABG pO2 ABG pO2 ABG HCO3 ABG O2 Saturation ABG Base Excess ABG Hemoglobin ABG Oxyhemoglobin ABG Potassium ABG Glucose Oxyhemoglobin Carboxyhemoglobin Sodium Potassium Chloride Carbon Dioxide BUN Creatinine Glucose POC Glucose 136 H 156 H Calcium Ferritin Total Bilirubin Alkaline Phosphatase Lactate Dehydrogenase Troponin T C-Reactive Protein Total Protein Albumin Prealbumin LDL Cholesterol Direct Arterial Blood Glucose Arterial Blood Ionized Calcium Urine WBC (Auto) 02/29/20 02/29/20 02/29/20 04:05 05:14 05:33 WBC RBC Hgb Hct MCV MCH RDW Plt Count Lymph % (Auto) Lymph # (Auto) [place] # (Auto) Seg Neutrophils % Seg Neuts % (Manual) Lymphocytes % (Manual) Monocytes % (Manual) Basophils % (Manual) Seg Neutrophils # Seg Neutrophils # Man Lymphocytes # (Manual) Monocytes # (Manual) Eosinophils # (Manual) Basophils # (Manual) PT INR D-Dimer ABG pH POC ABG pCO2 54.3 H POC ABG pO2 124.8 H ABG pO2 ABG HCO3 ABG O2 Saturation ABG Base Excess ABG Hemoglobin ABG Oxyhemoglobin ABG Potassium ABG Glucose 185 H Oxyhemoglobin Carboxyhemoglobin Sodium 148 H Potassium Chloride Carbon Dioxide 33 H BUN Creatinine < 0.2 L Glucose 173 H POC Glucose 152 H Calcium Ferritin Total Bilirubin Alkaline Phosphatase Lactate Dehydrogenase Troponin T C-Reactive Protein Total Protein Albumin Prealbumin LDL Cholesterol Direct Arterial Blood Glucose 185 H Arterial Blood Ionized Calcium Urine WBC (Auto) 03/01/20 03/01/20 03/01/20 00:00 03:45 04:33 WBC 23.1 H RBC Hgb Hct MCV MCH 27 L RDW 15.3 H Plt Count Lymph % (Auto) Lymph # (Auto) [place] # (Auto) Seg Neutrophils % Seg Neuts % (Manual) 92.0 H Lymphocytes % (Manual) 6.0 L Monocytes % (Manual) Basophils % (Manual) Seg Neutrophils # Seg Neutrophils # Man 21.3 H Lymphocytes # (Manual) Monocytes # (Manual) Eosinophils # (Manual) 0.5 H Basophils # (Manual) PT INR D-Dimer ABG pH 7.492 H POC ABG pCO2 POC ABG pO2 ABG pO2 157.1 H ABG HCO3 32.3 H ABG O2 Saturation ABG Base Excess 8.1 H ABG Hemoglobin 13.2 L ABG Oxyhemoglobin ABG Potassium ABG Glucose Oxyhemoglobin Carboxyhemoglobin Sodium Potassium Chloride Carbon Dioxide BUN Creatinine Glucose POC Glucose 109 H Calcium Ferritin Total Bilirubin Alkaline Phosphatase Lactate Dehydrogenase Troponin T C-Reactive Protein Total Protein Albumin Prealbumin LDL Cholesterol Direct Arterial Blood Glucose Arterial Blood Ionized Calcium Urine WBC (Auto) 03/01/20 03/01/20 03/01/20 04:33 05:29 12:32 WBC RBC Hgb Hct MCV MCH RDW Plt Count Lymph % (Auto) Lymph # (Auto) [place] # (Auto) Seg Neutrophils % Seg Neuts % (Manual) Lymphocytes % (Manual) Monocytes % (Manual) Basophils % (Manual) Seg Neutrophils # Seg Neutrophils # Man Lymphocytes # (Manual) Monocytes # (Manual) Eosinophils # (Manual) Basophils # (Manual) PT INR D-Dimer ABG pH POC ABG pCO2 POC ABG pO2 ABG pO2 ABG HCO3 ABG O2 Saturation ABG Base Excess ABG Hemoglobin ABG Oxyhemoglobin ABG Potassium ABG Glucose Oxyhemoglobin Carboxyhemoglobin Sodium 146 H Potassium Chloride Carbon Dioxide 32 H BUN Creatinine < 0.2 L Glucose 120 H POC Glucose 120 H 128 H Calcium Ferritin Total Bilirubin Alkaline Phosphatase Lactate Dehydrogenase Troponin T C-Reactive Protein Total Protein Albumin Prealbumin LDL Cholesterol Direct Arterial Blood Glucose Arterial Blood Ionized Calcium Urine WBC (Auto) 03/01/20 03/01/20 03/02/20 17:38 23:46 06:13 WBC RBC Hgb Hct MCV MCH RDW Plt Count Lymph % (Auto) Lymph # (Auto) [place] # (Auto) Seg Neutrophils % Seg Neuts % (Manual) Lymphocytes % (Manual) Monocytes % (Manual) Basophils % (Manual) Seg Neutrophils # Seg Neutrophils # Man Lymphocytes # (Manual) Monocytes # (Manual) Eosinophils # (Manual) Basophils # (Manual) PT INR D-Dimer ABG pH POC ABG pCO2 POC ABG pO2 ABG pO2 ABG HCO3 ABG O2 Saturation ABG Base Excess ABG Hemoglobin ABG Oxyhemoglobin ABG Potassium ABG Glucose Oxyhemoglobin Carboxyhemoglobin Sodium Potassium Chloride Carbon Dioxide BUN Creatinine Glucose POC Glucose 114 H 121 H 120 H Calcium Ferritin Total Bilirubin Alkaline Phosphatase Lactate Dehydrogenase Troponin T C-Reactive Protein Total Protein Albumin Prealbumin LDL Cholesterol Direct Arterial Blood Glucose Arterial Blood Ionized Calcium Urine WBC (Auto) 03/02/20 03/02/20 03/03/20 09:47 09:47 10:21 WBC 23.6 H RBC Hgb Hct MCV MCH RDW 15.3 H Plt Count 494 H Lymph % (Auto) Lymph # (Auto) [place] # (Auto) Seg Neutrophils % Seg Neuts % (Manual) 85.0 H Lymphocytes % (Manual) 6.0 L Monocytes % (Manual) Basophils % (Manual) Seg Neutrophils # Seg Neutrophils # Man 20.1 H Lymphocytes # (Manual) Monocytes # (Manual) 1.7 H Eosinophils # (Manual) Basophils # (Manual) PT INR D-Dimer ABG pH POC ABG pCO2 POC ABG pO2 ABG pO2 ABG HCO3 ABG O2 Saturation ABG Base Excess ABG Hemoglobin ABG Oxyhemoglobin ABG Potassium 3.3 L ABG Glucose 158 H Oxyhemoglobin Carboxyhemoglobin Sodium Potassium Chloride Carbon Dioxide BUN Creatinine < 0.2 L Glucose 177 H POC Glucose Calcium Ferritin Total Bilirubin Alkaline Phosphatase Lactate Dehydrogenase Troponin T C-Reactive Protein Total Protein Albumin Prealbumin LDL Cholesterol Direct Arterial Blood Glucose 158 H Arterial Blood Ionized Calcium Urine WBC (Auto) 03/03/20 03/04/20 03/04/20 21:30 00:00 12:23 WBC RBC Hgb Hct MCV MCH RDW Plt Count Lymph % (Auto) Lymph # (Auto) [place] # (Auto) Seg Neutrophils % Seg Neuts % (Manual) Lymphocytes % (Manual) Monocytes % (Manual) Basophils % (Manual) Seg Neutrophils # Seg Neutrophils # Man Lymphocytes # (Manual) Monocytes # (Manual) Eosinophils # (Manual) Basophils # (Manual) PT INR D-Dimer ABG pH 7.328 L POC ABG pCO2 POC ABG pO2 ABG pO2 68.4 L ABG HCO3 35.0 H ABG O2 Saturation 93.9 L ABG Base Excess 6.8 H ABG Hemoglobin 12.7 L ABG Oxyhemoglobin ABG Potassium ABG Glucose Oxyhemoglobin 91.9 L Carboxyhemoglobin Sodium Potassium Chloride Carbon Dioxide BUN Creatinine Glucose POC Glucose 187 H 163 H Calcium Ferritin Total Bilirubin Alkaline Phosphatase Lactate Dehydrogenase Troponin T C-Reactive Protein Total Protein Albumin Prealbumin LDL Cholesterol Direct Arterial Blood Glucose Arterial Blood Ionized Calcium Urine WBC (Auto) 03/04/20 03/04/20 03/05/20 18:15 21:30 06:02 WBC RBC Hgb Hct MCV MCH RDW Plt Count Lymph % (Auto) Lymph # (Auto) [place] # (Auto) Seg Neutrophils % Seg Neuts % (Manual) Lymphocytes % (Manual) Monocytes % (Manual) Basophils % (Manual) Seg Neutrophils # Seg Neutrophils # Man Lymphocytes # (Manual) Monocytes # (Manual) Eosinophils # (Manual) Basophils # (Manual) PT INR D-Dimer ABG pH 7.297 L POC ABG pCO2 POC ABG pO2 ABG pO2 ABG HCO3 41.0 H ABG O2 Saturation ABG Base Excess 11.0 H ABG Hemoglobin 13.1 L ABG Oxyhemoglobin ABG Potassium ABG Glucose Oxyhemoglobin 94.5 L Carboxyhemoglobin Sodium Potassium Chloride Carbon Dioxide BUN Creatinine Glucose POC Glucose 192 H 127 H Calcium Ferritin Total Bilirubin Alkaline Phosphatase Lactate Dehydrogenase Troponin T C-Reactive Protein Total Protein Albumin Prealbumin LDL Cholesterol Direct Arterial Blood Glucose Arterial Blood Ionized Calcium Urine WBC (Auto) 03/05/20 03/05/20 03/06/20 12:09 16:42 00:24 WBC RBC Hgb Hct MCV MCH RDW Plt Count Lymph % (Auto) Lymph # (Auto) [place] # (Auto) Seg Neutrophils % Seg Neuts % (Manual) Lymphocytes % (Manual) Monocytes % (Manual) Basophils % (Manual) Seg Neutrophils # Seg Neutrophils # Man Lymphocytes # (Manual) Monocytes # (Manual) Eosinophils # (Manual) Basophils # (Manual) PT INR D-Dimer ABG pH POC ABG pCO2 POC ABG pO2 ABG pO2 ABG HCO3 ABG O2 Saturation ABG Base Excess ABG Hemoglobin ABG Oxyhemoglobin ABG Potassium ABG Glucose Oxyhemoglobin Carboxyhemoglobin Sodium Potassium Chloride Carbon Dioxide BUN Creatinine Glucose POC Glucose 147 H 114 H 134 H Calcium Ferritin Total Bilirubin Alkaline Phosphatase Lactate Dehydrogenase Troponin T C-Reactive Protein Total Protein Albumin Prealbumin LDL Cholesterol Direct Arterial Blood Glucose Arterial Blood Ionized Calcium Urine WBC (Auto) 03/06/20 03/06/20 03/06/20 04:34 05:53 06:08 WBC 25.4 H RBC Hgb 10.5 L Hct 32.7 L MCV MCH 27 L RDW 15.3 H Plt Count 634 H Lymph % (Auto) Lymph # (Auto) [place] # (Auto) Seg Neutrophils % Seg Neuts % (Manual) 88.0 H Lymphocytes % (Manual) 2.0 L Monocytes % (Manual) 8.0 H Basophils % (Manual) Seg Neutrophils # Seg Neutrophils # Man 22.4 H Lymphocytes # (Manual) 0.5 L Monocytes # (Manual) 2.0 H Eosinophils # (Manual) Basophils # (Manual) PT INR D-Dimer ABG pH POC ABG pCO2 POC ABG pO2 ABG pO2 ABG HCO3 37.9 H ABG O2 Saturation ABG Base Excess 11.4 H ABG Hemoglobin 10.6 L ABG Oxyhemoglobin ABG Potassium ABG Glucose Oxyhemoglobin 94.7 L Carboxyhemoglobin Sodium Potassium Chloride Carbon Dioxide BUN Creatinine Glucose POC Glucose 135 H Calcium Ferritin Total Bilirubin Alkaline Phosphatase Lactate Dehydrogenase Troponin T C-Reactive Protein Total Protein Albumin Prealbumin LDL Cholesterol Direct Arterial Blood Glucose Arterial Blood Ionized Calcium Urine WBC (Auto) 03/06/20 03/06/20 03/06/20 06:08 12:19 19:10 WBC RBC Hgb Hct MCV MCH RDW Plt Count Lymph % (Auto) Lymph # (Auto) [place] # (Auto) Seg Neutrophils % Seg Neuts % (Manual) Lymphocytes % (Manual) Monocytes % (Manual) Basophils % (Manual) Seg Neutrophils # Seg Neutrophils # Man Lymphocytes # (Manual) Monocytes # (Manual) Eosinophils # (Manual) Basophils # (Manual) PT INR D-Dimer ABG pH POC ABG pCO2 POC ABG pO2 ABG pO2 ABG HCO3 ABG O2 Saturation ABG Base Excess ABG Hemoglobin ABG Oxyhemoglobin ABG Potassium ABG Glucose Oxyhemoglobin Carboxyhemoglobin Sodium 150 H D Potassium Chloride Carbon Dioxide 39 H D BUN 23 H Creatinine < 0.2 L Glucose 144 H POC Glucose 169 H 152 H Calcium Ferritin Total Bilirubin Alkaline Phosphatase Lactate Dehydrogenase Troponin T C-Reactive Protein Total Protein Albumin 3.3 L Prealbumin LDL Cholesterol Direct Arterial Blood Glucose Arterial Blood Ionized Calcium Urine WBC (Auto) 03/06/20 03/07/20 03/07/20 23:58 04:25 04:25 WBC 22.1 H RBC Hgb 10.9 L Hct 32.9 L MCV MCH RDW 15.5 H Plt Count 739 H Lymph % (Auto) 7.8 L Lymph # (Auto) [place] # (Auto) 1.3 H Seg Neutrophils % 85.5 H Seg Neuts % (Manual) Lymphocytes % (Manual) Monocytes % (Manual) Basophils % (Manual) Seg Neutrophils # 18.9 H Seg Neutrophils # Man Lymphocytes # (Manual) Monocytes # (Manual) Eosinophils # (Manual) Basophils # (Manual) PT INR D-Dimer ABG pH POC ABG pCO2 POC ABG pO2 ABG pO2 ABG HCO3 ABG O2 Saturation ABG Base Excess ABG Hemoglobin ABG Oxyhemoglobin ABG Potassium ABG Glucose Oxyhemoglobin Carboxyhemoglobin Sodium 146 H Potassium Chloride Carbon Dioxide 37 H BUN Creatinine < 0.2 L Glucose 118 H POC Glucose 111 H Calcium Ferritin Total Bilirubin Alkaline Phosphatase Lactate Dehydrogenase Troponin T C-Reactive Protein Total Protein Albumin 3.7 L Prealbumin LDL Cholesterol Direct Arterial Blood Glucose Arterial Blood Ionized Calcium Urine WBC (Auto) 03/07/20 03/07/20 03/07/20 05:20 17:45 23:32 WBC RBC Hgb Hct MCV MCH RDW Plt Count Lymph % (Auto) Lymph # (Auto) [place] # (Auto) Seg Neutrophils % Seg Neuts % (Manual) Lymphocytes % (Manual) Monocytes % (Manual) Basophils % (Manual) Seg Neutrophils # Seg Neutrophils # Man Lymphocytes # (Manual) Monocytes # (Manual) Eosinophils # (Manual) Basophils # (Manual) PT INR D-Dimer ABG pH POC ABG pCO2 POC ABG pO2 ABG pO2 ABG HCO3 ABG O2 Saturation ABG Base Excess ABG Hemoglobin ABG Oxyhemoglobin ABG Potassium ABG Glucose Oxyhemoglobin Carboxyhemoglobin Sodium Potassium Chloride Carbon Dioxide BUN Creatinine Glucose POC Glucose 113 H 124 H 210 H Calcium Ferritin Total Bilirubin Alkaline Phosphatase Lactate Dehydrogenase Troponin T C-Reactive Protein Total Protein Albumin Prealbumin LDL Cholesterol Direct Arterial Blood Glucose Arterial Blood Ionized Calcium Urine WBC (Auto) 03/08/20 03/08/20 03/08/20 05:35 06:43 06:43 WBC 28.9 H RBC 3.53 L Hgb 9.7 L Hct 30.3 L MCV MCH RDW 15.6 H Plt Count 578 H Lymph % (Auto) Lymph # (Auto) [place] # (Auto) Seg Neutrophils % Seg Neuts % (Manual) 93.0 H Lymphocytes % (Manual) 4.0 L Monocytes % (Manual) Basophils % (Manual) Seg Neutrophils # Seg Neutrophils # Man 26.9 H Lymphocytes # (Manual) Monocytes # (Manual) Eosinophils # (Manual) Basophils # (Manual) PT INR D-Dimer ABG pH POC ABG pCO2 POC ABG pO2 ABG pO2 ABG HCO3 ABG O2 Saturation ABG Base Excess ABG Hemoglobin ABG Oxyhemoglobin ABG Potassium ABG Glucose Oxyhemoglobin Carboxyhemoglobin Sodium 146 H Potassium Chloride Carbon Dioxide 35 H BUN 34 H Creatinine 0.3 L D Glucose 125 H POC Glucose 147 H Calcium Ferritin Total Bilirubin Alkaline Phosphatase Lactate Dehydrogenase Troponin T C-Reactive Protein Total Protein 5.9 L Albumin 3.2 L Prealbumin LDL Cholesterol Direct Arterial Blood Glucose Arterial Blood Ionized Calcium Urine WBC (Auto) 03/08/20 03/08/20 03/08/20 08:57 11:14 12:34 WBC RBC Hgb Hct MCV MCH RDW Plt Count Lymph % (Auto) Lymph # (Auto) [place] # (Auto) Seg Neutrophils % Seg Neuts % (Manual) Lymphocytes % (Manual) Monocytes % (Manual) Basophils % (Manual) Seg Neutrophils # Seg Neutrophils # Man Lymphocytes # (Manual) Monocytes # (Manual) Eosinophils # (Manual) Basophils # (Manual) PT INR D-Dimer ABG pH POC ABG pCO2 63.1 H POC ABG pO2 ABG pO2 ABG HCO3 ABG O2 Saturation ABG Base Excess ABG Hemoglobin 10.9 L ABG Oxyhemoglobin ABG Potassium ABG Glucose 176 H Oxyhemoglobin Carboxyhemoglobin Sodium Potassium Chloride Carbon Dioxide BUN Creatinine Glucose POC Glucose 171 H Calcium Ferritin Total Bilirubin Alkaline Phosphatase Lactate Dehydrogenase Troponin T C-Reactive Protein Total Protein Albumin Prealbumin LDL Cholesterol Direct Arterial Blood Glucose 176 H Arterial Blood Ionized Calcium 4.5 L Urine WBC (Auto) 10.0 H 03/08/20 03/08/20 03/09/20 18:02 23:43 05:49 WBC RBC Hgb Hct MCV MCH RDW Plt Count Lymph % (Auto) Lymph # (Auto) [place] # (Auto) Seg Neutrophils % Seg Neuts % (Manual) Lymphocytes % (Manual) Monocytes % (Manual) Basophils % (Manual) Seg Neutrophils # Seg Neutrophils # Man Lymphocytes # (Manual) Monocytes # (Manual) Eosinophils # (Manual) Basophils # (Manual) PT INR D-Dimer ABG pH POC ABG pCO2 POC ABG pO2 ABG pO2 ABG HCO3 ABG O2 Saturation ABG Base Excess ABG Hemoglobin ABG Oxyhemoglobin ABG Potassium ABG Glucose Oxyhemoglobin Carboxyhemoglobin Sodium Potassium Chloride Carbon Dioxide BUN Creatinine Glucose POC Glucose 157 H 134 H 163 H Calcium Ferritin Total Bilirubin Alkaline Phosphatase Lactate Dehydrogenase Troponin T C-Reactive Protein Total Protein Albumin Prealbumin LDL Cholesterol Direct Arterial Blood Glucose Arterial Blood Ionized Calcium Urine WBC (Auto) 03/09/20 03/09/20 03/09/20 08:35 08:35 12:11 WBC 23.4 H RBC 3.36 L Hgb 9.3 L Hct 28.8 L MCV MCH RDW 15.9 H Plt Count 521 H Lymph % (Auto) Lymph # (Auto) [place] # (Auto) Seg Neutrophils % Seg Neuts % (Manual) 87.0 H Lymphocytes % (Manual) 4.0 L Monocytes % (Manual) 9.0 H Basophils % (Manual) Seg Neutrophils # Seg Neutrophils # Man 20.4 H Lymphocytes # (Manual) 0.9 L Monocytes # (Manual) 2.1 H Eosinophils # (Manual) Basophils # (Manual) PT INR D-Dimer ABG pH POC ABG pCO2 POC ABG pO2 ABG pO2 ABG HCO3 ABG O2 Saturation ABG Base Excess ABG Hemoglobin ABG Oxyhemoglobin ABG Potassium ABG Glucose Oxyhemoglobin Carboxyhemoglobin Sodium 147 H Potassium Chloride Carbon Dioxide 37 H BUN 63 H Creatinine Glucose 154 H POC Glucose 128 H Calcium Ferritin Total Bilirubin Alkaline Phosphatase Lactate Dehydrogenase Troponin T C-Reactive Protein Total Protein Albumin Prealbumin LDL Cholesterol Direct Arterial Blood Glucose Arterial Blood Ionized Calcium Urine WBC (Auto) 03/09/20 03/10/20 03/10/20 17:51 00:25 05:41 WBC RBC Hgb Hct MCV MCH RDW Plt Count Lymph % (Auto) Lymph # (Auto) [place] # (Auto) Seg Neutrophils % Seg Neuts % (Manual) Lymphocytes % (Manual) Monocytes % (Manual) Basophils % (Manual) Seg Neutrophils # Seg Neutrophils # Man Lymphocytes # (Manual) Monocytes # (Manual) Eosinophils # (Manual) Basophils # (Manual) PT INR D-Dimer ABG pH POC ABG pCO2 POC ABG pO2 ABG pO2 ABG HCO3 ABG O2 Saturation ABG Base Excess ABG Hemoglobin ABG Oxyhemoglobin ABG Potassium ABG Glucose Oxyhemoglobin Carboxyhemoglobin Sodium Potassium Chloride Carbon Dioxide BUN Creatinine Glucose POC Glucose 127 H 128 H 153 H Calcium Ferritin Total Bilirubin Alkaline Phosphatase Lactate Dehydrogenase Troponin T C-Reactive Protein Total Protein Albumin Prealbumin LDL Cholesterol Direct Arterial Blood Glucose Arterial Blood Ionized Calcium Urine WBC (Auto) 03/10/20 03/10/20 03/10/20 06:14 06:14 12:02 WBC 18.3 H RBC 3.45 L Hgb 9.5 L Hct 29.5 L MCV MCH RDW 16.1 H Plt Count 494 H Lymph % (Auto) Lymph # (Auto) [place] # (Auto) Seg Neutrophils % Seg Neuts % (Manual) 95.0 H Lymphocytes % (Manual) 1.0 L Monocytes % (Manual) Basophils % (Manual) Seg Neutrophils # Seg Neutrophils # Man 17.4 H Lymphocytes # (Manual) 0.2 L Monocytes # (Manual) Eosinophils # (Manual) Basophils # (Manual) PT INR D-Dimer ABG pH POC ABG pCO2 POC ABG pO2 ABG pO2 ABG HCO3 ABG O2 Saturation ABG Base Excess ABG Hemoglobin ABG Oxyhemoglobin ABG Potassium ABG Glucose Oxyhemoglobin Carboxyhemoglobin Sodium 149 H Potassium Chloride Carbon Dioxide 35 H BUN 34 H Creatinine 0.2 L D Glucose 177 H POC Glucose 151 H Calcium Ferritin Total Bilirubin Alkaline Phosphatase Lactate Dehydrogenase Troponin T C-Reactive Protein Total Protein Albumin Prealbumin LDL Cholesterol Direct Arterial Blood Glucose Arterial Blood Ionized Calcium Urine WBC (Auto) 03/10/20 03/10/20 03/11/20 17:41 23:53 05:02 WBC RBC Hgb Hct MCV MCH RDW Plt Count Lymph % (Auto) Lymph # (Auto) [place] # (Auto) Seg Neutrophils % Seg Neuts % (Manual) Lymphocytes % (Manual) Monocytes % (Manual) Basophils % (Manual) Seg Neutrophils # Seg Neutrophils # Man Lymphocytes # (Manual) Monocytes # (Manual) Eosinophils # (Manual) Basophils # (Manual) PT INR D-Dimer ABG pH POC ABG pCO2 POC ABG pO2 ABG pO2 ABG HCO3 ABG O2 Saturation ABG Base Excess ABG Hemoglobin ABG Oxyhemoglobin ABG Potassium ABG Glucose Oxyhemoglobin Carboxyhemoglobin Sodium Potassium Chloride Carbon Dioxide BUN Creatinine Glucose POC Glucose 168 H 142 H 146 H Calcium Ferritin Total Bilirubin Alkaline Phosphatase Lactate Dehydrogenase Troponin T C-Reactive Protein Total Protein Albumin Prealbumin LDL Cholesterol Direct Arterial Blood Glucose Arterial Blood Ionized Calcium Urine WBC (Auto) 03/11/20 03/11/20 03/11/20 11:30 14:01 14:01 WBC 19.7 H RBC 3.04 L Hgb 8.7 L Hct 25.8 L MCV MCH RDW 15.6 H Plt Count Lymph % (Auto) Lymph # (Auto) [place] # (Auto) Seg Neutrophils % Seg Neuts % (Manual) Lymphocytes % (Manual) Monocytes % (Manual) Basophils % (Manual) Seg Neutrophils # Seg Neutrophils # Man Lymphocytes # (Manual) Monocytes # (Manual) Eosinophils # (Manual) Basophils # (Manual) PT INR D-Dimer ABG pH POC ABG pCO2 POC ABG pO2 ABG pO2 ABG HCO3 ABG O2 Saturation ABG Base Excess ABG Hemoglobin ABG Oxyhemoglobin ABG Potassium ABG Glucose Oxyhemoglobin Carboxyhemoglobin Sodium 151 H Potassium Chloride Carbon Dioxide 37 H BUN Creatinine < 0.2 L Glucose 171 H POC Glucose 248 H Calcium Ferritin Total Bilirubin Alkaline Phosphatase Lactate Dehydrogenase Troponin T C-Reactive Protein Total Protein Albumin Prealbumin LDL Cholesterol Direct Arterial Blood Glucose Arterial Blood Ionized Calcium Urine WBC (Auto) 03/11/20 03/11/20 03/12/20 17:09 23:52 04:39 WBC 19.9 H RBC 3.16 L Hgb 8.9 L Hct 27.5 L MCV MCH RDW 15.7 H Plt Count Lymph % (Auto) 6.8 L Lymph # (Auto) [place] # (Auto) 1.2 H Seg Neutrophils % 86.0 H Seg Neuts % (Manual) Lymphocytes % (Manual) Monocytes % (Manual) Basophils % (Manual) Seg Neutrophils # 17.1 H Seg Neutrophils # Man Lymphocytes # (Manual) Monocytes # (Manual) Eosinophils # (Manual) Basophils # (Manual) PT INR D-Dimer ABG pH POC ABG pCO2 POC ABG pO2 ABG pO2 ABG HCO3 ABG O2 Saturation ABG Base Excess ABG Hemoglobin ABG Oxyhemoglobin ABG Potassium ABG Glucose Oxyhemoglobin Carboxyhemoglobin Sodium Potassium Chloride Carbon Dioxide BUN Creatinine Glucose POC Glucose 124 H 131 H Calcium Ferritin Total Bilirubin Alkaline Phosphatase Lactate Dehydrogenase Troponin T C-Reactive Protein Total Protein Albumin Prealbumin LDL Cholesterol Direct Arterial Blood Glucose Arterial Blood Ionized Calcium Urine WBC (Auto) 03/12/20 03/12/20 03/12/20 04:39 05:28 11:34 WBC RBC Hgb Hct MCV MCH RDW Plt Count Lymph % (Auto) Lymph # (Auto) [place] # (Auto) Seg Neutrophils % Seg Neuts % (Manual) Lymphocytes % (Manual) Monocytes % (Manual) Basophils % (Manual) Seg Neutrophils # Seg Neutrophils # Man Lymphocytes # (Manual) Monocytes # (Manual) Eosinophils # (Manual) Basophils # (Manual) PT INR D-Dimer ABG pH POC ABG pCO2 POC ABG pO2 ABG pO2 ABG HCO3 ABG O2 Saturation ABG Base Excess ABG Hemoglobin ABG Oxyhemoglobin ABG Potassium ABG Glucose Oxyhemoglobin Carboxyhemoglobin Sodium 147 H Potassium Chloride Carbon Dioxide 40 H BUN Creatinine < 0.2 L Glucose 175 H POC Glucose 167 H 144 H Calcium Ferritin Total Bilirubin Alkaline Phosphatase Lactate Dehydrogenase Troponin T C-Reactive Protein Total Protein Albumin Prealbumin LDL Cholesterol Direct Arterial Blood Glucose Arterial Blood Ionized Calcium Urine WBC (Auto) 03/12/20 03/12/20 03/13/20 17:32 23:57 05:57 WBC RBC Hgb Hct MCV MCH RDW Plt Count Lymph % (Auto) Lymph # (Auto) [place] # (Auto) Seg Neutrophils % Seg Neuts % (Manual) Lymphocytes % (Manual) Monocytes % (Manual) Basophils % (Manual) Seg Neutrophils # Seg Neutrophils # Man Lymphocytes # (Manual) Monocytes # (Manual) Eosinophils # (Manual) Basophils # (Manual) PT INR D-Dimer ABG pH POC ABG pCO2 POC ABG pO2 ABG pO2 ABG HCO3 ABG O2 Saturation ABG Base Excess ABG Hemoglobin ABG Oxyhemoglobin ABG Potassium ABG Glucose Oxyhemoglobin Carboxyhemoglobin Sodium Potassium Chloride Carbon Dioxide BUN Creatinine Glucose POC Glucose 141 H 137 H 161 H Calcium Ferritin Total Bilirubin Alkaline Phosphatase Lactate Dehydrogenase Troponin T C-Reactive Protein Total Protein Albumin Prealbumin LDL Cholesterol Direct Arterial Blood Glucose Arterial Blood Ionized Calcium Urine WBC (Auto) 03/13/20 03/13/20 03/13/20 12:28 14:14 18:39 WBC RBC Hgb Hct MCV MCH RDW Plt Count Lymph % (Auto) Lymph # (Auto) [place] # (Auto) Seg Neutrophils % Seg Neuts % (Manual) Lymphocytes % (Manual) Monocytes % (Manual) Basophils % (Manual) Seg Neutrophils # Seg Neutrophils # Man Lymphocytes # (Manual) Monocytes # (Manual) Eosinophils # (Manual) Basophils # (Manual) PT INR D-Dimer ABG pH POC ABG pCO2 POC ABG pO2 ABG pO2 ABG HCO3 ABG O2 Saturation ABG Base Excess ABG Hemoglobin ABG Oxyhemoglobin ABG Potassium ABG Glucose Oxyhemoglobin Carboxyhemoglobin Sodium Potassium Chloride Carbon Dioxide 39 H BUN Creatinine < 0.2 L Glucose 129 H POC Glucose 130 H 125 H Calcium Ferritin Total Bilirubin Alkaline Phosphatase Lactate Dehydrogenase Troponin T C-Reactive Protein Total Protein Albumin Prealbumin LDL Cholesterol Direct Arterial Blood Glucose Arterial Blood Ionized Calcium Urine WBC (Auto) 03/13/20 03/14/20 03/14/20 23:33 05:24 08:07 WBC 16.8 H RBC 2.81 L Hgb 7.9 L Hct 23.9 L MCV MCH RDW 15.9 H Plt Count Lymph % (Auto) Lymph # (Auto) [place] # (Auto) Seg Neutrophils % Seg Neuts % (Manual) 84.0 H Lymphocytes % (Manual) 10.0 L Monocytes % (Manual) Basophils % (Manual) Seg Neutrophils # Seg Neutrophils # Man 14.1 H Lymphocytes # (Manual) Monocytes # (Manual) Eosinophils # (Manual) Basophils # (Manual) PT INR D-Dimer ABG pH POC ABG pCO2 POC ABG pO2 ABG pO2 ABG HCO3 ABG O2 Saturation ABG Base Excess ABG Hemoglobin ABG Oxyhemoglobin ABG Potassium ABG Glucose Oxyhemoglobin Carboxyhemoglobin Sodium Potassium Chloride Carbon Dioxide BUN Creatinine Glucose POC Glucose 146 H 125 H Calcium Ferritin Total Bilirubin Alkaline Phosphatase Lactate Dehydrogenase Troponin T C-Reactive Protein Total Protein Albumin Prealbumin LDL Cholesterol Direct Arterial Blood Glucose Arterial Blood Ionized Calcium Urine WBC (Auto) 03/14/20 03/14/20 03/14/20 08:07 12:21 18:26 WBC RBC Hgb Hct MCV MCH RDW Plt Count Lymph % (Auto) Lymph # (Auto) [place] # (Auto) Seg Neutrophils % Seg Neuts % (Manual) Lymphocytes % (Manual) Monocytes % (Manual) Basophils % (Manual) Seg Neutrophils # Seg Neutrophils # Man Lymphocytes # (Manual) Monocytes # (Manual) Eosinophils # (Manual) Basophils # (Manual) PT INR D-Dimer ABG pH POC ABG pCO2 POC ABG pO2 ABG pO2 ABG HCO3 ABG O2 Saturation ABG Base Excess ABG Hemoglobin ABG Oxyhemoglobin ABG Potassium ABG Glucose Oxyhemoglobin Carboxyhemoglobin Sodium Potassium Chloride 97.0 L Carbon Dioxide 37 H BUN Creatinine < 0.2 L Glucose 129 H POC Glucose 109 H 142 H Calcium 8.3 L Ferritin Total Bilirubin Alkaline Phosphatase Lactate Dehydrogenase Troponin T C-Reactive Protein Total Protein Albumin Prealbumin LDL Cholesterol Direct Arterial Blood Glucose Arterial Blood Ionized Calcium Urine WBC (Auto) 03/14/20 03/15/20 03/15/20 23:57 05:46 08:06 WBC 19.7 H RBC 3.29 L Hgb 9.1 L Hct 28.0 L MCV MCH RDW 15.9 H Plt Count Lymph % (Auto) Lymph # (Auto) [place] # (Auto) Seg Neutrophils % Seg Neuts % (Manual) Lymphocytes % (Manual) Monocytes % (Manual) Basophils % (Manual) Seg Neutrophils # Seg Neutrophils # Man Lymphocytes # (Manual) Monocytes # (Manual) Eosinophils # (Manual) Basophils # (Manual) PT INR D-Dimer ABG pH POC ABG pCO2 POC ABG pO2 ABG pO2 ABG HCO3 ABG O2 Saturation ABG Base Excess ABG Hemoglobin ABG Oxyhemoglobin ABG Potassium ABG Glucose Oxyhemoglobin Carboxyhemoglobin Sodium Potassium Chloride Carbon Dioxide BUN Creatinine Glucose POC Glucose 157 H 118 H Calcium Ferritin Total Bilirubin Alkaline Phosphatase Lactate Dehydrogenase Troponin T C-Reactive Protein Total Protein Albumin Prealbumin LDL Cholesterol Direct Arterial Blood Glucose Arterial Blood Ionized Calcium Urine WBC (Auto) 03/15/20 03/15/20 03/15/20 08:06 12:44 18:09 WBC RBC Hgb Hct MCV MCH RDW Plt Count Lymph % (Auto) Lymph # (Auto) [place] # (Auto) Seg Neutrophils % Seg Neuts % (Manual) Lymphocytes % (Manual) Monocytes % (Manual) Basophils % (Manual) Seg Neutrophils # Seg Neutrophils # Man Lymphocytes # (Manual) Monocytes # (Manual) Eosinophils # (Manual) Basophils # (Manual) PT INR D-Dimer ABG pH POC ABG pCO2 POC ABG pO2 ABG pO2 ABG HCO3 ABG O2 Saturation ABG Base Excess ABG Hemoglobin ABG Oxyhemoglobin ABG Potassium ABG Glucose Oxyhemoglobin Carboxyhemoglobin Sodium 136 L Potassium Chloride 93.6 L Carbon Dioxide 37 H BUN Creatinine < 0.2 L Glucose 132 H POC Glucose 151 H 164 H Calcium Ferritin Total Bilirubin Alkaline Phosphatase Lactate Dehydrogenase Troponin T C-Reactive Protein Total Protein Albumin Prealbumin LDL Cholesterol Direct Arterial Blood Glucose Arterial Blood Ionized Calcium Urine WBC (Auto) 03/15/20 03/16/20 03/16/20 23:26 05:39 11:58 WBC RBC Hgb Hct MCV MCH RDW Plt Count Lymph % (Auto) Lymph # (Auto) [place] # (Auto) Seg Neutrophils % Seg Neuts % (Manual) Lymphocytes % (Manual) Monocytes % (Manual) Basophils % (Manual) Seg Neutrophils # Seg Neutrophils # Man Lymphocytes # (Manual) Monocytes # (Manual) Eosinophils # (Manual) Basophils # (Manual) PT INR D-Dimer ABG pH POC ABG pCO2 POC ABG pO2 ABG pO2 ABG HCO3 ABG O2 Saturation ABG Base Excess ABG Hemoglobin ABG Oxyhemoglobin ABG Potassium ABG Glucose Oxyhemoglobin Carboxyhemoglobin Sodium Potassium Chloride Carbon Dioxide BUN Creatinine Glucose POC Glucose 136 H 116 H 109 H Calcium Ferritin Total Bilirubin Alkaline Phosphatase Lactate Dehydrogenase Troponin T C-Reactive Protein Total Protein Albumin Prealbumin LDL Cholesterol Direct Arterial Blood Glucose Arterial Blood Ionized Calcium Urine WBC (Auto) 03/16/20 03/17/20 03/17/20 23:56 04:40 04:40 WBC 18.0 H RBC 3.33 L Hgb 9.5 L Hct 28.8 L MCV MCH RDW 16.4 H Plt Count 499 H Lymph % (Auto) Lymph # (Auto) [place] # (Auto) Seg Neutrophils % Seg Neuts % (Manual) 82.0 H Lymphocytes % (Manual) 8.0 L Monocytes % (Manual) Basophils % (Manual) Seg Neutrophils # Seg Neutrophils # Man 14.8 H Lymphocytes # (Manual) Monocytes # (Manual) 1.3 H Eosinophils # (Manual) Basophils # (Manual) 0.2 H PT INR D-Dimer ABG pH POC ABG pCO2 POC ABG pO2 ABG pO2 ABG HCO3 ABG O2 Saturation ABG Base Excess ABG Hemoglobin ABG Oxyhemoglobin ABG Potassium ABG Glucose Oxyhemoglobin Carboxyhemoglobin Sodium Potassium Chloride 97.7 L Carbon Dioxide 32 H BUN Creatinine < 0.2 L Glucose 114 H POC Glucose 131 H Calcium Ferritin Total Bilirubin Alkaline Phosphatase Lactate Dehydrogenase Troponin T C-Reactive Protein Total Protein Albumin Prealbumin LDL Cholesterol Direct Arterial Blood Glucose Arterial Blood Ionized Calcium Urine WBC (Auto) 03/18/20 03/18/20 03/18/20 00:21 05:21 11:55 WBC RBC Hgb Hct MCV MCH RDW Plt Count Lymph % (Auto) Lymph # (Auto) [place] # (Auto) Seg Neutrophils % Seg Neuts % (Manual) Lymphocytes % (Manual) Monocytes % (Manual) Basophils % (Manual) Seg Neutrophils # Seg Neutrophils # Man Lymphocytes # (Manual) Monocytes # (Manual) Eosinophils # (Manual) Basophils # (Manual) PT INR D-Dimer ABG pH POC ABG pCO2 POC ABG pO2 ABG pO2 ABG HCO3 ABG O2 Saturation ABG Base Excess ABG Hemoglobin ABG Oxyhemoglobin ABG Potassium ABG Glucose Oxyhemoglobin Carboxyhemoglobin Sodium Potassium Chloride Carbon Dioxide BUN Creatinine Glucose POC Glucose 124 H 138 H 119 H Calcium Ferritin Total Bilirubin Alkaline Phosphatase Lactate Dehydrogenase Troponin T C-Reactive Protein Total Protein Albumin Prealbumin LDL Cholesterol Direct Arterial Blood Glucose Arterial Blood Ionized Calcium Urine WBC (Auto) 03/18/20 03/18/20 03/19/20 17:03 23:58 05:24 WBC RBC Hgb Hct MCV MCH RDW Plt Count Lymph % (Auto) Lymph # (Auto) [place] # (Auto) Seg Neutrophils % Seg Neuts % (Manual) Lymphocytes % (Manual) Monocytes % (Manual) Basophils % (Manual) Seg Neutrophils # Seg Neutrophils # Man Lymphocytes # (Manual) Monocytes # (Manual) Eosinophils # (Manual) Basophils # (Manual) PT INR D-Dimer ABG pH POC ABG pCO2 POC ABG pO2 ABG pO2 ABG HCO3 ABG O2 Saturation ABG Base Excess ABG Hemoglobin ABG Oxyhemoglobin ABG Potassium ABG Glucose Oxyhemoglobin Carboxyhemoglobin Sodium Potassium Chloride Carbon Dioxide BUN Creatinine Glucose POC Glucose 128 H 128 H 115 H Calcium Ferritin Total Bilirubin Alkaline Phosphatase Lactate Dehydrogenase Troponin T C-Reactive Protein Total Protein Albumin Prealbumin LDL Cholesterol Direct Arterial Blood Glucose Arterial Blood Ionized Calcium Urine WBC (Auto) 03/19/20 03/19/20 03/19/20 08:05 08:05 11:56 WBC 16.8 H RBC 3.36 L Hgb 9.4 L Hct 28.8 L MCV MCH RDW 17.4 H Plt Count 567 H Lymph % (Auto) 7.8 L Lymph # (Auto) [place] # (Auto) 1.2 H Seg Neutrophils % 83.5 H Seg Neuts % (Manual) Lymphocytes % (Manual) Monocytes % (Manual) Basophils % (Manual) Seg Neutrophils # 14.1 H Seg Neutrophils # Man Lymphocytes # (Manual) Monocytes # (Manual) Eosinophils # (Manual) Basophils # (Manual) PT INR D-Dimer ABG pH POC ABG pCO2 POC ABG pO2 ABG pO2 ABG HCO3 ABG O2 Saturation ABG Base Excess ABG Hemoglobin ABG Oxyhemoglobin ABG Potassium ABG Glucose Oxyhemoglobin Carboxyhemoglobin Sodium Potassium Chloride Carbon Dioxide 36 H BUN Creatinine < 0.2 L Glucose 135 H POC Glucose 128 H Calcium Ferritin Total Bilirubin Alkaline Phosphatase Lactate Dehydrogenase Troponin T C-Reactive Protein Total Protein Albumin Prealbumin LDL Cholesterol Direct Arterial Blood Glucose Arterial Blood Ionized Calcium Urine WBC (Auto) 03/19/20 03/20/20 03/20/20 23:59 05:12 16:52 WBC RBC Hgb Hct MCV MCH RDW Plt Count Lymph % (Auto) Lymph # (Auto) [place] # (Auto) Seg Neutrophils % Seg Neuts % (Manual) Lymphocytes % (Manual) Monocytes % (Manual) Basophils % (Manual) Seg Neutrophils # Seg Neutrophils # Man Lymphocytes # (Manual) Monocytes # (Manual) Eosinophils # (Manual) Basophils # (Manual) PT INR D-Dimer ABG pH POC ABG pCO2 POC ABG pO2 ABG pO2 ABG HCO3 ABG O2 Saturation ABG Base Excess ABG Hemoglobin ABG Oxyhemoglobin ABG Potassium ABG Glucose Oxyhemoglobin Carboxyhemoglobin Sodium Potassium Chloride Carbon Dioxide BUN Creatinine Glucose POC Glucose 120 H 131 H 124 H Calcium Ferritin Total Bilirubin Alkaline Phosphatase Lactate Dehydrogenase Troponin T C-Reactive Protein Total Protein Albumin Prealbumin LDL Cholesterol Direct Arterial Blood Glucose Arterial Blood Ionized Calcium Urine WBC (Auto) 03/20/20 03/21/20 03/21/20 23:35 04:50 07:35 WBC 15.2 H RBC 3.39 L Hgb 9.4 L Hct 29.4 L MCV MCH RDW 17.6 H Plt Count 518 H Lymph % (Auto) Lymph # (Auto) [place] # (Auto) Seg Neutrophils % Seg Neuts % (Manual) 83.0 H Lymphocytes % (Manual) 10.0 L Monocytes % (Manual) Basophils % (Manual) 2.0 H Seg Neutrophils # Seg Neutrophils # Man 12.6 H Lymphocytes # (Manual) Monocytes # (Manual) Eosinophils # (Manual) Basophils # (Manual) 0.3 H PT INR D-Dimer ABG pH POC ABG pCO2 POC ABG pO2 ABG pO2 ABG HCO3 ABG O2 Saturation ABG Base Excess ABG Hemoglobin ABG Oxyhemoglobin ABG Potassium ABG Glucose Oxyhemoglobin Carboxyhemoglobin Sodium Potassium Chloride Carbon Dioxide BUN Creatinine Glucose POC Glucose 125 H 127 H Calcium Ferritin Total Bilirubin Alkaline Phosphatase Lactate Dehydrogenase Troponin T C-Reactive Protein Total Protein Albumin Prealbumin LDL Cholesterol Direct Arterial Blood Glucose Arterial Blood Ionized Calcium Urine WBC (Auto) 03/21/20 03/21/20 03/21/20 07:35 11:45 17:22 WBC RBC Hgb Hct MCV MCH RDW Plt Count Lymph % (Auto) Lymph # (Auto) [place] # (Auto) Seg Neutrophils % Seg Neuts % (Manual) Lymphocytes % (Manual) Monocytes % (Manual) Basophils % (Manual) Seg Neutrophils # Seg Neutrophils # Man Lymphocytes # (Manual) Monocytes # (Manual) Eosinophils # (Manual) Basophils # (Manual) PT INR D-Dimer ABG pH POC ABG pCO2 POC ABG pO2 ABG pO2 ABG HCO3 ABG O2 Saturation ABG Base Excess ABG Hemoglobin ABG Oxyhemoglobin ABG Potassium ABG Glucose Oxyhemoglobin Carboxyhemoglobin Sodium 136 L Potassium Chloride 97.7 L Carbon Dioxide 32 H BUN Creatinine < 0.2 L Glucose 103 H POC Glucose 126 H 120 H Calcium Ferritin Total Bilirubin Alkaline Phosphatase Lactate Dehydrogenase Troponin T C-Reactive Protein Total Protein Albumin Prealbumin LDL Cholesterol Direct Arterial Blood Glucose Arterial Blood Ionized Calcium Urine WBC (Auto) 03/22/20 03/22/20 03/22/20 05:09 06:34 06:34 WBC 17.5 H RBC 3.52 L Hgb 10.0 L Hct 30.7 L MCV MCH RDW 17.5 H Plt Count 499 H Lymph % (Auto) Lymph # (Auto) [place] # (Auto) Seg Neutrophils % Seg Neuts % (Manual) 80.0 H Lymphocytes % (Manual) 10.0 L Monocytes % (Manual) Basophils % (Manual) Seg Neutrophils # Seg Neutrophils # Man 14.0 H Lymphocytes # (Manual) Monocytes # (Manual) Eosinophils # (Manual) Basophils # (Manual) PT INR D-Dimer ABG pH POC ABG pCO2 POC ABG pO2 ABG pO2 ABG HCO3 ABG O2 Saturation ABG Base Excess ABG Hemoglobin ABG Oxyhemoglobin ABG Potassium ABG Glucose Oxyhemoglobin Carboxyhemoglobin Sodium Potassium Chloride 96.6 L Carbon Dioxide 38 H BUN Creatinine < 0.2 L Glucose 139 H POC Glucose 125 H Calcium Ferritin Total Bilirubin Alkaline Phosphatase Lactate Dehydrogenase Troponin T C-Reactive Protein Total Protein Albumin Prealbumin LDL Cholesterol Direct Arterial Blood Glucose Arterial Blood Ionized Calcium Urine WBC (Auto) 03/22/20 03/22/20 03/22/20 11:45 18:00 23:32 WBC RBC Hgb Hct MCV MCH RDW Plt Count Lymph % (Auto) Lymph # (Auto) [place] # (Auto) Seg Neutrophils % Seg Neuts % (Manual) Lymphocytes % (Manual) Monocytes % (Manual) Basophils % (Manual) Seg Neutrophils # Seg Neutrophils # Man Lymphocytes # (Manual) Monocytes # (Manual) Eosinophils # (Manual) Basophils # (Manual) PT INR D-Dimer ABG pH POC ABG pCO2 POC ABG pO2 ABG pO2 ABG HCO3 ABG O2 Saturation ABG Base Excess ABG Hemoglobin ABG Oxyhemoglobin ABG Potassium ABG Glucose Oxyhemoglobin Carboxyhemoglobin Sodium Potassium Chloride Carbon Dioxide BUN Creatinine Glucose POC Glucose 135 H 133 H Calcium Ferritin Total Bilirubin Alkaline Phosphatase Lactate Dehydrogenase Troponin T 0.113 H* C-Reactive Protein Total Protein Albumin Prealbumin LDL Cholesterol Direct Arterial Blood Glucose Arterial Blood Ionized Calcium Urine WBC (Auto) 03/23/20 03/23/20 03/23/20 01:47 06:21 07:57 WBC RBC Hgb Hct MCV MCH RDW Plt Count Lymph % (Auto) Lymph # (Auto) [place] # (Auto) Seg Neutrophils % Seg Neuts % (Manual) Lymphocytes % (Manual) Monocytes % (Manual) Basophils % (Manual) Seg Neutrophils # Seg Neutrophils # Man Lymphocytes # (Manual) Monocytes # (Manual) Eosinophils # (Manual) Basophils # (Manual) PT INR D-Dimer ABG pH POC ABG pCO2 POC ABG pO2 ABG pO2 ABG HCO3 ABG O2 Saturation ABG Base Excess ABG Hemoglobin ABG Oxyhemoglobin ABG Potassium ABG Glucose Oxyhemoglobin Carboxyhemoglobin Sodium Potassium Chloride Carbon Dioxide BUN Creatinine Glucose POC Glucose 130 H Calcium Ferritin Total Bilirubin Alkaline Phosphatase Lactate Dehydrogenase Troponin T 0.143 H* D 0.105 H* D C-Reactive Protein Total Protein Albumin Prealbumin LDL Cholesterol Direct Arterial Blood Glucose Arterial Blood Ionized Calcium Urine WBC (Auto) 03/23/20 03/24/20 03/24/20 12:02 05:33 07:15 WBC 18.0 H RBC Hgb 11.0 L Hct 34.0 L MCV MCH RDW 17.4 H Plt Count 520 H Lymph % (Auto) Lymph # (Auto) [place] # (Auto) Seg Neutrophils % Seg Neuts % (Manual) 88.0 H Lymphocytes % (Manual) 7.0 L Monocytes % (Manual) Basophils % (Manual) Seg Neutrophils # Seg Neutrophils # Man 15.8 H Lymphocytes # (Manual) Monocytes # (Manual) Eosinophils # (Manual) Basophils # (Manual) PT INR D-Dimer ABG pH POC ABG pCO2 POC ABG pO2 ABG pO2 ABG HCO3 ABG O2 Saturation ABG Base Excess ABG Hemoglobin ABG Oxyhemoglobin ABG Potassium ABG Glucose Oxyhemoglobin Carboxyhemoglobin Sodium Potassium Chloride Carbon Dioxide BUN Creatinine Glucose POC Glucose 137 H 112 H Calcium Ferritin Total Bilirubin Alkaline Phosphatase Lactate Dehydrogenase Troponin T C-Reactive Protein Total Protein Albumin Prealbumin LDL Cholesterol Direct Arterial Blood Glucose Arterial Blood Ionized Calcium Urine WBC (Auto) 03/24/20 03/24/20 03/24/20 07:15 11:22 23:30 WBC RBC Hgb Hct MCV MCH RDW Plt Count Lymph % (Auto) Lymph # (Auto) [place] # (Auto) Seg Neutrophils % Seg Neuts % (Manual) Lymphocytes % (Manual) Monocytes % (Manual) Basophils % (Manual) Seg Neutrophils # Seg Neutrophils # Man Lymphocytes # (Manual) Monocytes # (Manual) Eosinophils # (Manual) Basophils # (Manual) PT INR D-Dimer ABG pH POC ABG pCO2 POC ABG pO2 ABG pO2 ABG HCO3 ABG O2 Saturation ABG Base Excess ABG Hemoglobin ABG Oxyhemoglobin ABG Potassium ABG Glucose Oxyhemoglobin Carboxyhemoglobin Sodium Potassium Chloride 96.6 L Carbon Dioxide 38 H BUN Creatinine < 0.2 L Glucose 141 H POC Glucose 130 H 120 H Calcium Ferritin Total Bilirubin Alkaline Phosphatase Lactate Dehydrogenase Troponin T C-Reactive Protein Total Protein Albumin Prealbumin LDL Cholesterol Direct Arterial Blood Glucose Arterial Blood Ionized Calcium Urine WBC (Auto) 03/25/20 03/25/20 03/25/20 05:48 17:53 23:18 WBC RBC Hgb Hct MCV MCH RDW Plt Count Lymph % (Auto) Lymph # (Auto) [place] # (Auto) Seg Neutrophils % Seg Neuts % (Manual) Lymphocytes % (Manual) Monocytes % (Manual) Basophils % (Manual) Seg Neutrophils # Seg Neutrophils # Man Lymphocytes # (Manual) Monocytes # (Manual) Eosinophils # (Manual) Basophils # (Manual) PT INR D-Dimer ABG pH POC ABG pCO2 POC ABG pO2 ABG pO2 ABG HCO3 ABG O2 Saturation ABG Base Excess ABG Hemoglobin ABG Oxyhemoglobin ABG Potassium ABG Glucose Oxyhemoglobin Carboxyhemoglobin Sodium Potassium Chloride Carbon Dioxide BUN Creatinine Glucose POC Glucose 124 H 109 H 131 H Calcium Ferritin Total Bilirubin Alkaline Phosphatase Lactate Dehydrogenase Troponin T C-Reactive Protein Total Protein Albumin Prealbumin LDL Cholesterol Direct Arterial Blood Glucose Arterial Blood Ionized Calcium Urine WBC (Auto) 03/26/20 03/26/20 03/26/20 05:21 08:49 08:49 WBC 19.7 H RBC Hgb 10.7 L Hct 33.5 L MCV MCH 27 L RDW 17.1 H Plt Count 480 H Lymph % (Auto) 5.7 L Lymph # (Auto) 1.1 L [place] # (Auto) 1.2 H Seg Neutrophils % 87.7 H Seg Neuts % (Manual) Lymphocytes % (Manual) Monocytes % (Manual) Basophils % (Manual) Seg Neutrophils # 17.2 H Seg Neutrophils # Man Lymphocytes # (Manual) Monocytes # (Manual) Eosinophils # (Manual) Basophils # (Manual) PT INR D-Dimer ABG pH POC ABG pCO2 POC ABG pO2 ABG pO2 ABG HCO3 ABG O2 Saturation ABG Base Excess ABG Hemoglobin ABG Oxyhemoglobin ABG Potassium ABG Glucose Oxyhemoglobin Carboxyhemoglobin Sodium Potassium Chloride 97.2 L Carbon Dioxide 36 H BUN Creatinine < 0.2 L Glucose 127 H POC Glucose 116 H Calcium Ferritin Total Bilirubin Alkaline Phosphatase Lactate Dehydrogenase Troponin T C-Reactive Protein Total Protein Albumin Prealbumin LDL Cholesterol Direct Arterial Blood Glucose Arterial Blood Ionized Calcium Urine WBC (Auto) 03/26/20 03/26/20 03/26/20 11:38 18:44 23:06 WBC RBC Hgb Hct MCV MCH RDW Plt Count Lymph % (Auto) Lymph # (Auto) [place] # (Auto) Seg Neutrophils % Seg Neuts % (Manual) Lymphocytes % (Manual) Monocytes % (Manual) Basophils % (Manual) Seg Neutrophils # Seg Neutrophils # Man Lymphocytes # (Manual) Monocytes # (Manual) Eosinophils # (Manual) Basophils # (Manual) PT INR D-Dimer ABG pH POC ABG pCO2 POC ABG pO2 ABG pO2 ABG HCO3 ABG O2 Saturation ABG Base Excess ABG Hemoglobin ABG Oxyhemoglobin ABG Potassium ABG Glucose Oxyhemoglobin Carboxyhemoglobin Sodium Potassium Chloride Carbon Dioxide BUN Creatinine Glucose POC Glucose 120 H 111 H 134 H Calcium Ferritin Total Bilirubin Alkaline Phosphatase Lactate Dehydrogenase Troponin T C-Reactive Protein Total Protein Albumin Prealbumin LDL Cholesterol Direct Arterial Blood Glucose Arterial Blood Ionized Calcium Urine WBC (Auto) 03/27/20 03/27/20 03/27/20 05:41 05:59 05:59 WBC 18.6 H RBC Hgb 10.1 L Hct 31.4 L MCV MCH RDW 17.2 H Plt Count Lymph % (Auto) 8.0 L Lymph # (Auto) [place] # (Auto) 1.2 H Seg Neutrophils % 84.7 H Seg Neuts % (Manual) Lymphocytes % (Manual) Monocytes % (Manual) Basophils % (Manual) Seg Neutrophils # 15.8 H Seg Neutrophils # Man Lymphocytes # (Manual) Monocytes # (Manual) Eosinophils # (Manual) Basophils # (Manual) PT INR D-Dimer ABG pH POC ABG pCO2 POC ABG pO2 ABG pO2 ABG HCO3 ABG O2 Saturation ABG Base Excess ABG Hemoglobin ABG Oxyhemoglobin ABG Potassium ABG Glucose Oxyhemoglobin Carboxyhemoglobin Sodium Potassium Chloride Carbon Dioxide 34 H BUN Creatinine < 0.2 L Glucose 127 H POC Glucose 129 H Calcium Ferritin Total Bilirubin Alkaline Phosphatase Lactate Dehydrogenase Troponin T C-Reactive Protein Total Protein Albumin Prealbumin LDL Cholesterol Direct Arterial Blood Glucose Arterial Blood Ionized Calcium Urine WBC (Auto) 03/27/20 03/27/20 03/28/20 17:28 23:22 05:23 WBC RBC Hgb Hct MCV MCH RDW Plt Count Lymph % (Auto) Lymph # (Auto) [place] # (Auto) Seg Neutrophils % Seg Neuts % (Manual) Lymphocytes % (Manual) Monocytes % (Manual) Basophils % (Manual) Seg Neutrophils # Seg Neutrophils # Man Lymphocytes # (Manual) Monocytes # (Manual) Eosinophils # (Manual) Basophils # (Manual) PT INR D-Dimer ABG pH POC ABG pCO2 POC ABG pO2 ABG pO2 ABG HCO3 ABG O2 Saturation ABG Base Excess ABG Hemoglobin ABG Oxyhemoglobin ABG Potassium ABG Glucose Oxyhemoglobin Carboxyhemoglobin Sodium Potassium Chloride Carbon Dioxide BUN Creatinine Glucose POC Glucose 108 H 119 H 129 H Calcium Ferritin Total Bilirubin Alkaline Phosphatase Lactate Dehydrogenase Troponin T C-Reactive Protein Total Protein Albumin Prealbumin LDL Cholesterol Direct Arterial Blood Glucose Arterial Blood Ionized Calcium Urine WBC (Auto) 03/28/20 10:28 WBC 23.6 H RBC 3.62 L Hgb 10.0 L Hct 30.8 L MCV MCH RDW 16.4 H Plt Count Lymph % (Auto) Lymph # (Auto) [place] # (Auto) Seg Neutrophils % Seg Neuts % (Manual) Lymphocytes % (Manual) Monocytes % (Manual) Basophils % (Manual) Seg Neutrophils # Seg Neutrophils # Man Lymphocytes # (Manual) Monocytes # (Manual) Eosinophils # (Manual) Basophils # (Manual) PT INR D-Dimer ABG pH POC ABG pCO2 POC ABG pO2 ABG pO2 ABG HCO3 ABG O2 Saturation ABG Base Excess ABG Hemoglobin ABG Oxyhemoglobin ABG Potassium ABG Glucose Oxyhemoglobin Carboxyhemoglobin Sodium Potassium Chloride Carbon Dioxide BUN Creatinine Glucose POC Glucose Calcium Ferritin Total Bilirubin Alkaline Phosphatase Lactate Dehydrogenase Troponin T C-Reactive Protein Total Protein Albumin Prealbumin LDL Cholesterol Direct Arterial Blood Glucose Arterial Blood Ionized Calcium Urine WBC (Auto) Chest x-ray: pending Allied health notes reviewed: nursing
[2020-03-28 11:32] LABS: Blood Urea Nitrogen 17 mg/dL (9-20); Calcium 8.8 mg/dL (8.4-10.2); Hemolysis Index 20
[2020-03-28 11:46] LABS: BUN/Creatinine Ratio 85
[2020-03-28 11:54] LABS: Bacteria,Urine 2+ /HPF (Negative); Bilirubin,Urine NEG (Negative); Blood,Urine NEG (Negative); Color,Urine Yellow (Yellow); Mucus,Urine 3+ /HPF
[2020-03-28 11:57] LABS: Eosinophils % (Manual) 0 % (0.0-4.3); Total Cells Counted 100
[2020-03-28 12:00] LABS: Anisocytosis 1+; Platelet Estimate Consistent w Auto; Toxic Granulation 1+
--- NOTE | 2020-03-28 12:38 | XRay Report ---
CHEST 1 VIEW INDICATION: reevaluate infiltrates given spike in temp. COMPARISON: 03/12/2020 FINDINGS: Support devices: Tracheostomy is in good position. The nasogastric tube has been removed. Heart: Within normal limits. Lungs/Pleura: No acute air space or interstitial disease. Minor lingular infiltrate or segmental atel ectasis has resolved. No pleural effusion or pneumothorax. Additional findings: None. IMPRESSION: No acute findings. Signer Name: Mynor Lakhani Jr, MD Signed: 03/28/2020 12:33 PM Workstation Name: [id number]
[2020-03-28 17:59] LABS: Creatine Kinase MB 2.2 ng/mL (0.0-4.0)
[2020-03-28] MEDS: ENOXAPARIN 40 MG/0.4 ML INJ SUB-Q SCH (21:13)
[2020-03-28] MEDS: ZOLPIDEM 5 MG TAB PO PRN (22:07)
[2020-03-29] MEDS: MORPHINE 2 MG/1 ML INJ IV PRN ×5 (00:17→20:20)
[2020-03-29] MEDS: GLYCOPYRROLATE 1 MG TAB PO SCH ×3 (08:04→21:49)
[2020-03-29] MEDS: METOPROLOL TARTRATE 25 MG TAB PO SCH ×2 (09:08→21:49)
[2020-03-29] MEDS: TAMSULOSIN 0.4 MG CAP PO SCH (09:08)
[2020-03-29] MEDS: LANSOPRAZOLE 30 MG SOLUTAB FEEDTUBE SCH (09:08)
--- NOTE | 2020-03-29 13:31 | Progress Note ---
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 Respiratory Failure Severe Sepsis with Shock Bilateral Pneumonia (Possible aspiration) History of ALS on Trilogy Oropharyngeal Dysphagia PUI-COVID Acute toxic metabolic encephalopathy Elevated D-dimer Elevated troponin possibly type 2 ischemia - agrees to possible LTAC transfer while he is trying to find family members that may be trained for home ventilator support - wants us to talk to his "? personal casework manager" - reduced p-supp to 8 and tolerating well so far - try to work p-supp down to 5 while continuing t-piece trials - continue to rest on AC overnight for now - continue to optimize electrolytes (prn BMP, Mg & PO4) - continue care as below otherwise; - repeat CXR prn +/- bronchoscopy for mucus plugging / large volume atelectasis - continue to rest on AC qhs - LTAC evaluation is appropriate - continue Robinul & scopolamine for secretion control - prn electrolytes and optimize K+ & Mg 2+ for best respiratory muscle function - wound care per RN/WCN - continue Scopolamine patch for secretion control - wean supplemental oxygen for target O2 sat's > 92% acutely - bronchodilators with pulmonary hygiene per RT - VAP bundle addressed - continue lung protective strategies - continue bronchodilators with pulmonary hygiene per RT - wean per pulmonary driven protocols otherwise - sedation prn for target RASS 0 to -1 - s/p empiric antiinfectives per ID rec's (Rocephin and Zithromax) - s/p COVID-19 isolation (Airborne & Contact) - empiric Dexamethasone - follow COVID-19 test results (negative) - trend inflammatory markers to aid clinical decision making - enteral nutrition at goal rate as tolerated - Aspiration precautions - accuchecks with glycemic control per SSI (While critically ill target blood glucose of 140-180 mg/dL; avoid hypoglycemia) - avoid nephrotoxins, renally dose all medications - avoid benzodiazepine's, reduce the possibility of delirium - prn analgesia per CPOT score - Maintenance of sleep-wake cycle, avoid delirium - aspiration precautions - G.I. & VTE prophylaxis - PT/OT/ROM exercises - mobility protocols for pressure ulcer prophylaxis - Monitor hemodynamics closely - continue other care per attending / other consultants - discharge planning ongoing concurrently .... Re-evaluate in am & prn CONDITION: CRITICAL PROGNOSIS: GUARDED CODE STATUS: FULL CODE The high probability of a clinically significant, sudden or life-threatening deterioration of the [respiratory, cardiovascular & neurologic] system(s) required my full and direct attention, intervention and personal management. The aggregate critical care time was [32] minutes without overlap. Time includes spent on; [x] Data Review and interpretation [x] Patient assessment and monitoring of vital signs [x] Documentation [x] Medication orders and management Subjective Date of service: 03/29/20 Principal diagnosis: Ac on Ch Hypercapnic & hypoxemic Resp Failure; Severe Sepsis; Jamar PNA; ALS Interval history: Patient is seen today for: Acute on Chronic Hypercapnic & hypoxemic Respiratory Failure; Severe Sepsis with Shock; Bilateral Pneumonia (Possible aspiration); History of ALS on Trilogy; PUI-COVID; Acute toxic metabolic encephalopathy Seen and examined at bedside; 24hour events reviewed; nursing and respiratory care staff consulted; no adverse overnight events reported to me; resting in bed; remains on MVS; discussed with hospice rep but essentially did not agree to a terminal wean; wants to go home on MVS ultimately if possible; denies acute chest pain now "just sad" Objective Vital Signs - 12hr 03/29/20 03/29/20 03/29/20 01:30 01:46 02:00 Temperature Pulse Rate 120 H 121 H 119 H Pulse Rate [ From Monitor] Respiratory 22 15 17 Rate Blood Pressure 111/76 111/76 106/71 O2 Sat by Pulse 99 98 99 Oximetry O2 Sat by Pulse Oximetry [ Assessment] 03/29/20 03/29/20 03/29/20 02:16 02:30 02:46 Temperature Pulse Rate 120 H 120 H 116 H Pulse Rate [ From Monitor] Respiratory 21 21 16 Rate Blood Pressure 106/71 110/77 110/77 O2 Sat by Pulse 99 98 99 Oximetry O2 Sat by Pulse Oximetry [ Assessment] 03/29/20 03/29/20 03/29/20 03:00 03:16 03:30 Temperature Pulse Rate 120 H 116 H 116 H Pulse Rate [ From Monitor] Respiratory 24 13 15 Rate Blood Pressure 109/79 109/79 115/77 O2 Sat by Pulse 99 99 99 Oximetry O2 Sat by Pulse 100 Oximetry [ Assessment] 03/29/20 03/29/20 03/29/20 03:46 04:00 04:16 Temperature 98.9 F Pulse Rate 121 H 113 H 111 H Pulse Rate [ 113 H From Monitor] Respiratory 16 12 13 Rate Blood Pressure 115/77 111/72 111/72 O2 Sat by Pulse 100 100 99 Oximetry O2 Sat by Pulse Oximetry [ Assessment] 03/29/20 03/29/20 03/29/20 04:20 04:30 04:46 Temperature Pulse Rate 121 H 112 H 111 H Pulse Rate [ From Monitor] Respiratory 14 14 Rate Blood Pressure 120/78 120/78 115/77 O2 Sat by Pulse 99 99 Oximetry O2 Sat by Pulse Oximetry [ Assessment] 03/29/20 03/29/20 03/29/20 05:00 05:16 05:30 Temperature Pulse Rate 120 H 119 H 122 H Pulse Rate [ From Monitor] Respiratory 16 19 22 Rate Blood Pressure 108/77 108/77 109/77 O2 Sat by Pulse 98 100 98 Oximetry O2 Sat by Pulse Oximetry [ Assessment] 03/29/20 03/29/20 03/29/20 05:46 06:00 06:16 Temperature Pulse Rate 113 H 117 H 105 H Pulse Rate [ From Monitor] Respiratory 13 13 12 Rate Blood Pressure 109/77 111/78 111/78 O2 Sat by Pulse 100 97 100 Oximetry O2 Sat by Pulse Oximetry [ Assessment] 03/29/20 03/29/20 03/29/20 06:30 06:46 07:00 Temperature Pulse Rate 114 H 112 H 115 H Pulse Rate [ From Monitor] Respiratory 17 14 15 Rate Blood Pressure 110/73 110/73 110/75 O2 Sat by Pulse 98 100 100 Oximetry O2 Sat by Pulse Oximetry [ Assessment] 03/29/20 03/29/20 03/29/20 07:16 07:30 07:45 Temperature Pulse Rate 107 H 110 H 98 H Pulse Rate [ From Monitor] Respiratory 12 12 12 Rate Blood Pressure 110/75 117/77 117/77 O2 Sat by Pulse 99 98 99 Oximetry O2 Sat by Pulse Oximetry [ Assessment] 03/29/20 03/29/20 03/29/20 08:00 08:14 08:16 Temperature 98.4 F Pulse Rate 119 H 114 H Pulse Rate [ 107 H From Monitor] Respiratory 27 H 19 16 Rate Blood Pressure 116/77 117/77 O2 Sat by Pulse 100 100 Oximetry O2 Sat by Pulse Oximetry [ Assessment] 03/29/20 03/29/20 03/29/20 08:30 08:32 08:35 Temperature Pulse Rate 110 H 112 H Pulse Rate [ From Monitor] Respiratory 19 18 Rate Blood Pressure 118/82 118/82 O2 Sat by Pulse 98 100 Oximetry O2 Sat by Pulse 100 Oximetry [ Assessment] 03/29/20 03/29/20 03/29/20 08:46 09:00 09:08 Temperature Pulse Rate 107 H 110 H 108 H Pulse Rate [ From Monitor] Respiratory 22 20 Rate Blood Pressure 116/77 110/75 110/75 O2 Sat by Pulse 100 99 Oximetry O2 Sat by Pulse Oximetry [ Assessment] 03/29/20 03/29/20 03/29/20 09:16 09:30 09:46 Temperature Pulse Rate 107 H 109 H 100 H Pulse Rate [ From Monitor] Respiratory 14 20 24 Rate Blood Pressure 118/82 117/77 117/77 O2 Sat by Pulse 100 97 100 Oximetry O2 Sat by Pulse Oximetry [ Assessment] 03/29/20 03/29/20 03/29/20 10:00 10:16 10:30 Temperature Pulse Rate 103 H 106 H 106 H Pulse Rate [ From Monitor] Respiratory 17 26 H 27 H Rate Blood Pressure 114/76 114/76 103/69 O2 Sat by Pulse 99 100 99 Oximetry O2 Sat by Pulse Oximetry [ Assessment] 03/29/20 03/29/20 03/29/20 10:46 11:00 11:16 Temperature Pulse Rate 110 H 107 H 110 H Pulse Rate [ From Monitor] Respiratory 25 H 20 22 Rate Blood Pressure 103/69 99/70 99/70 O2 Sat by Pulse 100 100 Oximetry O2 Sat by Pulse Oximetry [ Assessment] 03/29/20 03/29/20 11:30 11:42 Temperature Pulse Rate 114 H 112 H Pulse Rate [ From Monitor] Respiratory 22 21 Rate Blood Pressure 106/71 106/71 O2 Sat by Pulse 99 99 Oximetry O2 Sat by Pulse Oximetry [ Assessment] Constitutional: appears uncomfortable, other (thin middle aged male with normal respiratory effort at rest on MVS) Eyes: non-icteric ENT: oropharynx moist, other (S/P Tracheostomy) Neck: supple, no lymphadenopathy, no JVD Effort: mildly labored Ascultation: Bilateral: diminished breath sounds, rhonchi Percussion: Bilateral: not dull Cardiovascular: regular rate and rhythm, other (S1,S2, no murmurs) Gastrointestinal: normoactive bowel sounds, soft, non-tender, non-distended, other (+ distended but non tender suprapubis) Integumentary: normal, decubitus ulcer (sacral / gluteal) Extremities: no cyanosis, no edema, pulses normal, other (atrophic looking limbs) Neurologic: pupils equal and round, other (motor strength in extremities 1-2/5, awake, alert, mouths words to make needs known) Psychiatric: depressed CBC and BMP: 03/28/20 10:28 03/28/20 10:28 ABG, PT/INR, D-dimer: ABG ABG pH 7.371 (7.320-7.450) 03/08/20 12:34 POC ABG pCO2 63.1 mmHg (32.0-48.0) H 03/08/20 12:34 ABG pCO2 60.1 mm Hg 03/06/20 04:34 POC ABG pO2 90.5 mmHg (83-108) 03/08/20 12:34 ABG pO2 88.6 mm Hg (80.0-90.0) 03/06/20 04:34 POC ABG HCO3 35.7 03/08/20 12:34 ABG O2 Saturation 97.0 % (95.0-99.0) 03/06/20 04:34 PT/INR, D-dimer PT 15.6 Sec. (12.2-14.9) H 02/24/20 09:19 INR 1.21 (0.87-1.13) H 02/24/20 09:19 D-Dimer 1311.96 ng/mlDDU (0-234) H 02/24/20 09:19 Abnormal lab findings: Abnormal Labs 02/24/20 02/24/20 02/24/20 09:19 09:19 09:19 WBC 20.2 H RBC 5.05 H Hgb Hct MCV MCH RDW 15.3 H Plt Count Lymph % (Auto) Lymph # (Auto) [place] # (Auto) Seg Neutrophils % Seg Neuts % (Manual) 86.0 H Lymphocytes % (Manual) 1.0 L Monocytes % (Manual) Basophils % (Manual) Seg Neutrophils # Seg Neutrophils # Man 17.4 H Lymphocytes # (Manual) 0.2 L Monocytes # (Manual) Eosinophils # (Manual) Basophils # (Manual) PT 15.6 H INR 1.21 H D-Dimer 1311.96 H ABG pH POC ABG pCO2 POC ABG pO2 ABG pO2 ABG HCO3 ABG O2 Saturation ABG Base Excess ABG Hemoglobin ABG Oxyhemoglobin ABG Potassium ABG Glucose Oxyhemoglobin Carboxyhemoglobin Sodium 135 L Potassium 3.2 L Chloride 92.2 L Carbon Dioxide BUN 6 L Creatinine < 0.2 L Glucose 124 H POC Glucose Calcium Ferritin Total Bilirubin 2.30 H Alkaline Phosphatase 132 H Lactate Dehydrogenase Total Creatine Kinase CK-MB (CK-2) Rel Index Troponin T 0.080 H C-Reactive Protein Total Protein Albumin 3.6 L Prealbumin LDL Cholesterol Direct 41 L Arterial Blood Glucose Arterial Blood Ionized Calcium Urine WBC (Auto) 02/24/20 02/24/20 02/24/20 09:19 09:58 10:01 WBC RBC Hgb Hct MCV MCH RDW Plt Count Lymph % (Auto) Lymph # (Auto) [place] # (Auto) Seg Neutrophils % Seg Neuts % (Manual) Lymphocytes % (Manual) Monocytes % (Manual) Basophils % (Manual) Seg Neutrophils # Seg Neutrophils # Man Lymphocytes # (Manual) Monocytes # (Manual) Eosinophils # (Manual) Basophils # (Manual) PT INR D-Dimer ABG pH 7.176 L* POC ABG pCO2 POC ABG pO2 ABG pO2 91.2 H ABG HCO3 ABG O2 Saturation ABG Base Excess -4.6 L ABG Hemoglobin ABG Oxyhemoglobin ABG Potassium ABG Glucose Oxyhemoglobin 92.6 L Carboxyhemoglobin Sodium Potassium Chloride Carbon Dioxide BUN Creatinine Glucose POC Glucose Calcium Ferritin 1715.0 H Total Bilirubin Alkaline Phosphatase Lactate Dehydrogenase 303 H Total Creatine Kinase CK-MB (CK-2) Rel Index Troponin T C-Reactive Protein 26.10 H Total Protein Albumin Prealbumin LDL Cholesterol Direct Arterial Blood Glucose Arterial Blood Ionized Calcium Urine WBC (Auto) 02/24/20 02/24/20 02/24/20 11:52 13:45 19:35 WBC RBC Hgb Hct MCV MCH RDW Plt Count Lymph % (Auto) Lymph # (Auto) [place] # (Auto) Seg Neutrophils % Seg Neuts % (Manual) Lymphocytes % (Manual) Monocytes % (Manual) Basophils % (Manual) Seg Neutrophils # Seg Neutrophils # Man Lymphocytes # (Manual) Monocytes # (Manual) Eosinophils # (Manual) Basophils # (Manual) PT INR D-Dimer ABG pH 7.051 L* 7.300 L POC ABG pCO2 POC ABG pO2 ABG pO2 94.7 H 75.1 L ABG HCO3 18.0 L ABG O2 Saturation 93.5 L ABG Base Excess -6.8 L -7.8 L ABG Hemoglobin 13.2 L 11.9 L ABG Oxyhemoglobin ABG Potassium ABG Glucose Oxyhemoglobin 91.0 L 92.7 L Carboxyhemoglobin Sodium Potassium Chloride Carbon Dioxide BUN Creatinine Glucose POC Glucose Calcium Ferritin Total Bilirubin Alkaline Phosphatase Lactate Dehydrogenase Total Creatine Kinase CK-MB (CK-2) Rel Index Troponin T 0.034 H D C-Reactive Protein Total Protein Albumin Prealbumin LDL Cholesterol Direct Arterial Blood Glucose Arterial Blood Ionized Calcium Urine WBC (Auto) 02/25/20 02/25/20 02/25/20 04:00 04:00 12:26 WBC 22.9 H RBC Hgb Hct MCV 83 L MCH 27 L RDW Plt Count 468 H Lymph % (Auto) Lymph # (Auto) [place] # (Auto) Seg Neutrophils % Seg Neuts % (Manual) 89.0 H Lymphocytes % (Manual) 7.0 L Monocytes % (Manual) Basophils % (Manual) Seg Neutrophils # Seg Neutrophils # Man 20.4 H Lymphocytes # (Manual) Monocytes # (Manual) Eosinophils # (Manual) Basophils # (Manual) PT INR D-Dimer ABG pH POC ABG pCO2 POC ABG pO2 ABG pO2 ABG HCO3 ABG O2 Saturation ABG Base Excess ABG Hemoglobin ABG Oxyhemoglobin ABG Potassium 2.6 L ABG Glucose 142 H Oxyhemoglobin Carboxyhemoglobin Sodium Potassium 3.2 L Chloride Carbon Dioxide 18 L BUN Creatinine 0.2 L Glucose 114 H POC Glucose Calcium Ferritin Total Bilirubin Alkaline Phosphatase Lactate Dehydrogenase Total Creatine Kinase CK-MB (CK-2) Rel Index Troponin T C-Reactive Protein Total Protein Albumin 3.5 L Prealbumin LDL Cholesterol Direct Arterial Blood Glucose 142 H Arterial Blood Ionized Calcium Urine WBC (Auto) 02/26/20 02/26/20 02/26/20 15:58 17:00 23:43 WBC RBC Hgb Hct MCV MCH RDW Plt Count Lymph % (Auto) Lymph # (Auto) [place] # (Auto) Seg Neutrophils % Seg Neuts % (Manual) Lymphocytes % (Manual) Monocytes % (Manual) Basophils % (Manual) Seg Neutrophils # Seg Neutrophils # Man Lymphocytes # (Manual) Monocytes # (Manual) Eosinophils # (Manual) Basophils # (Manual) PT INR D-Dimer ABG pH 7.502 H POC ABG pCO2 POC ABG pO2 213.6 H ABG pO2 ABG HCO3 ABG O2 Saturation ABG Base Excess ABG Hemoglobin ABG Oxyhemoglobin 99.2 H ABG Potassium 2.9 L ABG Glucose 160 H Oxyhemoglobin Carboxyhemoglobin 0.4 L Sodium Potassium Chloride Carbon Dioxide BUN Creatinine Glucose POC Glucose 189 H 120 H Calcium Ferritin Total Bilirubin Alkaline Phosphatase Lactate Dehydrogenase Total Creatine Kinase CK-MB (CK-2) Rel Index Troponin T C-Reactive Protein Total Protein Albumin Prealbumin LDL Cholesterol Direct Arterial Blood Glucose 160 H Arterial Blood Ionized Calcium 4.5 L Urine WBC (Auto) 02/27/20 02/27/20 02/27/20 05:00 07:04 17:45 WBC RBC Hgb Hct MCV MCH RDW Plt Count Lymph % (Auto) Lymph # (Auto) [place] # (Auto) Seg Neutrophils % Seg Neuts % (Manual) Lymphocytes % (Manual) Monocytes % (Manual) Basophils % (Manual) Seg Neutrophils # Seg Neutrophils # Man Lymphocytes # (Manual) Monocytes # (Manual) Eosinophils # (Manual) Basophils # (Manual) PT INR D-Dimer ABG pH 7.524 H POC ABG pCO2 POC ABG pO2 ABG pO2 ABG HCO3 ABG O2 Saturation ABG Base Excess ABG Hemoglobin ABG Oxyhemoglobin ABG Potassium 3.0 L ABG Glucose 143 H Oxyhemoglobin Carboxyhemoglobin Sodium Potassium Chloride Carbon Dioxide BUN Creatinine Glucose POC Glucose 154 H 175 H Calcium Ferritin Total Bilirubin Alkaline Phosphatase Lactate Dehydrogenase Total Creatine Kinase CK-MB (CK-2) Rel Index Troponin T C-Reactive Protein Total Protein Albumin Prealbumin LDL Cholesterol Direct Arterial Blood Glucose 143 H Arterial Blood Ionized Calcium Urine WBC (Auto) 02/27/20 02/28/20 02/28/20 Unknown 00:21 04:15 WBC 18.7 H RBC Hgb Hct MCV MCH RDW Plt Count Lymph % (Auto) 8.7 L Lymph # (Auto) [place] # (Auto) 1.2 H Seg Neutrophils % 84.6 H Seg Neuts % (Manual) Lymphocytes % (Manual) Monocytes % (Manual) Basophils % (Manual) Seg Neutrophils # 15.9 H Seg Neutrophils # Man Lymphocytes # (Manual) Monocytes # (Manual) Eosinophils # (Manual) Basophils # (Manual) PT INR D-Dimer ABG pH POC ABG pCO2 POC ABG pO2 ABG pO2 ABG HCO3 ABG O2 Saturation ABG Base Excess ABG Hemoglobin ABG Oxyhemoglobin ABG Potassium ABG Glucose Oxyhemoglobin Carboxyhemoglobin Sodium Potassium 2.9 L* Chloride Carbon Dioxide 33 H D BUN Creatinine < 0.2 L Glucose 157 H POC Glucose 134 H Calcium Ferritin Total Bilirubin Alkaline Phosphatase Lactate Dehydrogenase Total Creatine Kinase CK-MB (CK-2) Rel Index Troponin T C-Reactive Protein Total Protein Albumin Prealbumin LDL Cholesterol Direct Arterial Blood Glucose Arterial Blood Ionized Calcium Urine WBC (Auto) 02/28/20 02/28/20 02/28/20 04:15 05:16 05:39 WBC RBC Hgb Hct MCV MCH RDW Plt Count Lymph % (Auto) Lymph # (Auto) [place] # (Auto) Seg Neutrophils % Seg Neuts % (Manual) Lymphocytes % (Manual) Monocytes % (Manual) Basophils % (Manual) Seg Neutrophils # Seg Neutrophils # Man Lymphocytes # (Manual) Monocytes # (Manual) Eosinophils # (Manual) Basophils # (Manual) PT INR D-Dimer ABG pH POC ABG pCO2 POC ABG pO2 ABG pO2 142.9 H ABG HCO3 34.1 H ABG O2 Saturation ABG Base Excess 8.3 H ABG Hemoglobin ABG Oxyhemoglobin ABG Potassium ABG Glucose Oxyhemoglobin Carboxyhemoglobin Sodium 151 H Potassium Chloride Carbon Dioxide 32 H BUN Creatinine 0.2 L Glucose 167 H POC Glucose 138 H Calcium Ferritin Total Bilirubin Alkaline Phosphatase Lactate Dehydrogenase Total Creatine Kinase CK-MB (CK-2) Rel Index Troponin T C-Reactive Protein Total Protein Albumin Prealbumin LDL Cholesterol Direct Arterial Blood Glucose Arterial Blood Ionized Calcium Urine WBC (Auto) 02/28/20 02/28/20 02/28/20 11:05 11:33 12:54 WBC RBC Hgb Hct MCV MCH RDW Plt Count Lymph % (Auto) Lymph # (Auto) [place] # (Auto) Seg Neutrophils % Seg Neuts % (Manual) Lymphocytes % (Manual) Monocytes % (Manual) Basophils % (Manual) Seg Neutrophils # Seg Neutrophils # Man Lymphocytes # (Manual) Monocytes # (Manual) Eosinophils # (Manual) Basophils # (Manual) PT INR D-Dimer ABG pH POC ABG pCO2 POC ABG pO2 ABG pO2 ABG HCO3 ABG O2 Saturation ABG Base Excess ABG Hemoglobin ABG Oxyhemoglobin ABG Potassium ABG Glucose Oxyhemoglobin Carboxyhemoglobin Sodium Potassium Chloride Carbon Dioxide BUN Creatinine Glucose POC Glucose 160 H Calcium Ferritin Total Bilirubin Alkaline Phosphatase Lactate Dehydrogenase Total Creatine Kinase CK-MB (CK-2) Rel Index Troponin T C-Reactive Protein 4.70 H Total Protein Albumin Prealbumin 0.090 L LDL Cholesterol Direct Arterial Blood Glucose Arterial Blood Ionized Calcium Urine WBC (Auto) 02/28/20 02/29/20 02/29/20 17:34 00:44 04:05 WBC 19.6 H RBC Hgb Hct MCV MCH 27 L RDW 15.4 H Plt Count Lymph % (Auto) Lymph # (Auto) [place] # (Auto) Seg Neutrophils % Seg Neuts % (Manual) 86.0 H Lymphocytes % (Manual) 7.0 L Monocytes % (Manual) Basophils % (Manual) Seg Neutrophils # Seg Neutrophils # Man 16.9 H Lymphocytes # (Manual) Monocytes # (Manual) 1.2 H Eosinophils # (Manual) Basophils # (Manual) PT INR D-Dimer ABG pH POC ABG pCO2 POC ABG pO2 ABG pO2 ABG HCO3 ABG O2 Saturation ABG Base Excess ABG Hemoglobin ABG Oxyhemoglobin ABG Potassium ABG Glucose Oxyhemoglobin Carboxyhemoglobin Sodium Potassium Chloride Carbon Dioxide BUN Creatinine Glucose POC Glucose 136 H 156 H Calcium Ferritin Total Bilirubin Alkaline Phosphatase Lactate Dehydrogenase Total Creatine Kinase CK-MB (CK-2) Rel Index Troponin T C-Reactive Protein Total Protein Albumin Prealbumin LDL Cholesterol Direct Arterial Blood Glucose Arterial Blood Ionized Calcium Urine WBC (Auto) 02/29/20 02/29/20 02/29/20 04:05 05:14 05:33 WBC RBC Hgb Hct MCV MCH RDW Plt Count Lymph % (Auto) Lymph # (Auto) [place] # (Auto) Seg Neutrophils % Seg Neuts % (Manual) Lymphocytes % (Manual) Monocytes % (Manual) Basophils % (Manual) Seg Neutrophils # Seg Neutrophils # Man Lymphocytes # (Manual) Monocytes # (Manual) Eosinophils # (Manual) Basophils # (Manual) PT INR D-Dimer ABG pH POC ABG pCO2 54.3 H POC ABG pO2 124.8 H ABG pO2 ABG HCO3 ABG O2 Saturation ABG Base Excess ABG Hemoglobin ABG Oxyhemoglobin ABG Potassium ABG Glucose 185 H Oxyhemoglobin Carboxyhemoglobin Sodium 148 H Potassium Chloride Carbon Dioxide 33 H BUN Creatinine < 0.2 L Glucose 173 H POC Glucose 152 H Calcium Ferritin Total Bilirubin Alkaline Phosphatase Lactate Dehydrogenase Total Creatine Kinase CK-MB (CK-2) Rel Index Troponin T C-Reactive Protein Total Protein Albumin Prealbumin LDL Cholesterol Direct Arterial Blood Glucose 185 H Arterial Blood Ionized Calcium Urine WBC (Auto) 03/01/20 03/01/20 03/01/20 00:00 03:45 04:33 WBC 23.1 H RBC Hgb Hct MCV MCH 27 L RDW 15.3 H Plt Count Lymph % (Auto) Lymph # (Auto) [place] # (Auto) Seg Neutrophils % Seg Neuts % (Manual) 92.0 H Lymphocytes % (Manual) 6.0 L Monocytes % (Manual) Basophils % (Manual) Seg Neutrophils # Seg Neutrophils # Man 21.3 H Lymphocytes # (Manual) Monocytes # (Manual) Eosinophils # (Manual) 0.5 H Basophils # (Manual) PT INR D-Dimer ABG pH 7.492 H POC ABG pCO2 POC ABG pO2 ABG pO2 157.1 H ABG HCO3 32.3 H ABG O2 Saturation ABG Base Excess 8.1 H ABG Hemoglobin 13.2 L ABG Oxyhemoglobin ABG Potassium ABG Glucose Oxyhemoglobin Carboxyhemoglobin Sodium Potassium Chloride Carbon Dioxide BUN Creatinine Glucose POC Glucose 109 H Calcium Ferritin Total Bilirubin Alkaline Phosphatase Lactate Dehydrogenase Total Creatine Kinase CK-MB (CK-2) Rel Index Troponin T C-Reactive Protein Total Protein Albumin Prealbumin LDL Cholesterol Direct Arterial Blood Glucose Arterial Blood Ionized Calcium Urine WBC (Auto) 03/01/20 03/01/20 03/01/20 04:33 05:29 12:32 WBC RBC Hgb Hct MCV MCH RDW Plt Count Lymph % (Auto) Lymph # (Auto) [place] # (Auto) Seg Neutrophils % Seg Neuts % (Manual) Lymphocytes % (Manual) Monocytes % (Manual) Basophils % (Manual) Seg Neutrophils # Seg Neutrophils # Man Lymphocytes # (Manual) Monocytes # (Manual) Eosinophils # (Manual) Basophils # (Manual) PT INR D-Dimer ABG pH POC ABG pCO2 POC ABG pO2 ABG pO2 ABG HCO3 ABG O2 Saturation ABG Base Excess ABG Hemoglobin ABG Oxyhemoglobin ABG Potassium ABG Glucose Oxyhemoglobin Carboxyhemoglobin Sodium 146 H Potassium Chloride Carbon Dioxide 32 H BUN Creatinine < 0.2 L Glucose 120 H POC Glucose 120 H 128 H Calcium Ferritin Total Bilirubin Alkaline Phosphatase Lactate Dehydrogenase Total Creatine Kinase CK-MB (CK-2) Rel Index Troponin T C-Reactive Protein Total Protein Albumin Prealbumin LDL Cholesterol Direct Arterial Blood Glucose Arterial Blood Ionized Calcium Urine WBC (Auto) 03/01/20 03/01/20 03/02/20 17:38 23:46 06:13 WBC RBC Hgb Hct MCV MCH RDW Plt Count Lymph % (Auto) Lymph # (Auto) [place] # (Auto) Seg Neutrophils % Seg Neuts % (Manual) Lymphocytes % (Manual) Monocytes % (Manual) Basophils % (Manual) Seg Neutrophils # Seg Neutrophils # Man Lymphocytes # (Manual) Monocytes # (Manual) Eosinophils # (Manual) Basophils # (Manual) PT INR D-Dimer ABG pH POC ABG pCO2 POC ABG pO2 ABG pO2 ABG HCO3 ABG O2 Saturation ABG Base Excess ABG Hemoglobin ABG Oxyhemoglobin ABG Potassium ABG Glucose Oxyhemoglobin Carboxyhemoglobin Sodium Potassium Chloride Carbon Dioxide BUN Creatinine Glucose POC Glucose 114 H 121 H 120 H Calcium Ferritin Total Bilirubin Alkaline Phosphatase Lactate Dehydrogenase Total Creatine Kinase CK-MB (CK-2) Rel Index Troponin T C-Reactive Protein Total Protein Albumin Prealbumin LDL Cholesterol Direct Arterial Blood Glucose Arterial Blood Ionized Calcium Urine WBC (Auto) 03/02/20 03/02/20 03/03/20 09:47 09:47 10:21 WBC 23.6 H RBC Hgb Hct MCV MCH RDW 15.3 H Plt Count 494 H Lymph % (Auto) Lymph # (Auto) [place] # (Auto) Seg Neutrophils % Seg Neuts % (Manual) 85.0 H Lymphocytes % (Manual) 6.0 L Monocytes % (Manual) Basophils % (Manual) Seg Neutrophils # Seg Neutrophils # Man 20.1 H Lymphocytes # (Manual) Monocytes # (Manual) 1.7 H Eosinophils # (Manual) Basophils # (Manual) PT INR D-Dimer ABG pH POC ABG pCO2 POC ABG pO2 ABG pO2 ABG HCO3 ABG O2 Saturation ABG Base Excess ABG Hemoglobin ABG Oxyhemoglobin ABG Potassium 3.3 L ABG Glucose 158 H Oxyhemoglobin Carboxyhemoglobin Sodium Potassium Chloride Carbon Dioxide BUN Creatinine < 0.2 L Glucose 177 H POC Glucose Calcium Ferritin Total Bilirubin Alkaline Phosphatase Lactate Dehydrogenase Total Creatine Kinase CK-MB (CK-2) Rel Index Troponin T C-Reactive Protein Total Protein Albumin Prealbumin LDL Cholesterol Direct Arterial Blood Glucose 158 H Arterial Blood Ionized Calcium Urine WBC (Auto) 11/06/20 11/07/20 11/07/20 21:30 00:00 12:23 WBC RBC Hgb Hct MCV MCH RDW Plt Count Lymph % (Auto) Lymph # (Auto) [place] # (Auto) Seg Neutrophils % Seg Neuts % (Manual) Lymphocytes % (Manual) Monocytes % (Manual) Basophils % (Manual) Seg Neutrophils # Seg Neutrophils # Man Lymphocytes # (Manual) Monocytes # (Manual) Eosinophils # (Manual) Basophils # (Manual) PT INR D-Dimer ABG pH 7.328 L POC ABG pCO2 POC ABG pO2 ABG pO2 68.4 L ABG HCO3 35.0 H ABG O2 Saturation 93.9 L ABG Base Excess 6.8 H ABG Hemoglobin 12.7 L ABG Oxyhemoglobin ABG Potassium ABG Glucose Oxyhemoglobin 91.9 L Carboxyhemoglobin Sodium Potassium Chloride Carbon Dioxide BUN Creatinine Glucose POC Glucose 187 H 163 H Calcium Ferritin Total Bilirubin Alkaline Phosphatase Lactate Dehydrogenase Total Creatine Kinase CK-MB (CK-2) Rel Index Troponin T C-Reactive Protein Total Protein Albumin Prealbumin LDL Cholesterol Direct Arterial Blood Glucose Arterial Blood Ionized Calcium Urine WBC (Auto) 03/04/20 03/04/20 03/05/20 18:15 21:30 06:02 WBC RBC Hgb Hct MCV MCH RDW Plt Count Lymph % (Auto) Lymph # (Auto) [place] # (Auto) Seg Neutrophils % Seg Neuts % (Manual) Lymphocytes % (Manual) Monocytes % (Manual) Basophils % (Manual) Seg Neutrophils # Seg Neutrophils # Man Lymphocytes # (Manual) Monocytes # (Manual) Eosinophils # (Manual) Basophils # (Manual) PT INR D-Dimer ABG pH 7.297 L POC ABG pCO2 POC ABG pO2 ABG pO2 ABG HCO3 41.0 H ABG O2 Saturation ABG Base Excess 11.0 H ABG Hemoglobin 13.1 L ABG Oxyhemoglobin ABG Potassium ABG Glucose Oxyhemoglobin 94.5 L Carboxyhemoglobin Sodium Potassium Chloride Carbon Dioxide BUN Creatinine Glucose POC Glucose 192 H 127 H Calcium Ferritin Total Bilirubin Alkaline Phosphatase Lactate Dehydrogenase Total Creatine Kinase CK-MB (CK-2) Rel Index Troponin T C-Reactive Protein Total Protein Albumin Prealbumin LDL Cholesterol Direct Arterial Blood Glucose Arterial Blood Ionized Calcium Urine WBC (Auto) 03/05/20 03/05/20 03/06/20 12:09 16:42 00:24 WBC RBC Hgb Hct MCV MCH RDW Plt Count Lymph % (Auto) Lymph # (Auto) [place] # (Auto) Seg Neutrophils % Seg Neuts % (Manual) Lymphocytes % (Manual) Monocytes % (Manual) Basophils % (Manual) Seg Neutrophils # Seg Neutrophils # Man Lymphocytes # (Manual) Monocytes # (Manual) Eosinophils # (Manual) Basophils # (Manual) PT INR D-Dimer ABG pH POC ABG pCO2 POC ABG pO2 ABG pO2 ABG HCO3 ABG O2 Saturation ABG Base Excess ABG Hemoglobin ABG Oxyhemoglobin ABG Potassium ABG Glucose Oxyhemoglobin Carboxyhemoglobin Sodium Potassium Chloride Carbon Dioxide BUN Creatinine Glucose POC Glucose 147 H 114 H 134 H Calcium Ferritin Total Bilirubin Alkaline Phosphatase Lactate Dehydrogenase Total Creatine Kinase CK-MB (CK-2) Rel Index Troponin T C-Reactive Protein Total Protein Albumin Prealbumin LDL Cholesterol Direct Arterial Blood Glucose Arterial Blood Ionized Calcium Urine WBC (Auto) 03/06/20 03/06/20 03/06/20 04:34 05:53 06:08 WBC 25.4 H RBC Hgb 10.5 L Hct 32.7 L MCV MCH 27 L RDW 15.3 H Plt Count 634 H Lymph % (Auto) Lymph # (Auto) [place] # (Auto) Seg Neutrophils % Seg Neuts % (Manual) 88.0 H Lymphocytes % (Manual) 2.0 L Monocytes % (Manual) 8.0 H Basophils % (Manual) Seg Neutrophils # Seg Neutrophils # Man 22.4 H Lymphocytes # (Manual) 0.5 L Monocytes # (Manual) 2.0 H Eosinophils # (Manual) Basophils # (Manual) PT INR D-Dimer ABG pH POC ABG pCO2 POC ABG pO2 ABG pO2 ABG HCO3 37.9 H ABG O2 Saturation ABG Base Excess 11.4 H ABG Hemoglobin 10.6 L ABG Oxyhemoglobin ABG Potassium ABG Glucose Oxyhemoglobin 94.7 L Carboxyhemoglobin Sodium Potassium Chloride Carbon Dioxide BUN Creatinine Glucose POC Glucose 135 H Calcium Ferritin Total Bilirubin Alkaline Phosphatase Lactate Dehydrogenase Total Creatine Kinase CK-MB (CK-2) Rel Index Troponin T C-Reactive Protein Total Protein Albumin Prealbumin LDL Cholesterol Direct Arterial Blood Glucose Arterial Blood Ionized Calcium Urine WBC (Auto) 03/06/20 03/06/20 03/06/20 06:08 12:19 19:10 WBC RBC Hgb Hct MCV MCH RDW Plt Count Lymph % (Auto) Lymph # (Auto) [place] # (Auto) Seg Neutrophils % Seg Neuts % (Manual) Lymphocytes % (Manual) Monocytes % (Manual) Basophils % (Manual) Seg Neutrophils # Seg Neutrophils # Man Lymphocytes # (Manual) Monocytes # (Manual) Eosinophils # (Manual) Basophils # (Manual) PT INR D-Dimer ABG pH POC ABG pCO2 POC ABG pO2 ABG pO2 ABG HCO3 ABG O2 Saturation ABG Base Excess ABG Hemoglobin ABG Oxyhemoglobin ABG Potassium ABG Glucose Oxyhemoglobin Carboxyhemoglobin Sodium 150 H D Potassium Chloride Carbon Dioxide 39 H D BUN 23 H Creatinine < 0.2 L Glucose 144 H POC Glucose 169 H 152 H Calcium Ferritin Total Bilirubin Alkaline Phosphatase Lactate Dehydrogenase Total Creatine Kinase CK-MB (CK-2) Rel Index Troponin T C-Reactive Protein Total Protein Albumin 3.3 L Prealbumin LDL Cholesterol Direct Arterial Blood Glucose Arterial Blood Ionized Calcium Urine WBC (Auto) 03/06/20 03/07/20 03/07/20 23:58 04:25 04:25 WBC 22.1 H RBC Hgb 10.9 L Hct 32.9 L MCV MCH RDW 15.5 H Plt Count 739 H Lymph % (Auto) 7.8 L Lymph # (Auto) [place] # (Auto) 1.3 H Seg Neutrophils % 85.5 H Seg Neuts % (Manual) Lymphocytes % (Manual) Monocytes % (Manual) Basophils % (Manual) Seg Neutrophils # 18.9 H Seg Neutrophils # Man Lymphocytes # (Manual) Monocytes # (Manual) Eosinophils # (Manual) Basophils # (Manual) PT INR D-Dimer ABG pH POC ABG pCO2 POC ABG pO2 ABG pO2 ABG HCO3 ABG O2 Saturation ABG Base Excess ABG Hemoglobin ABG Oxyhemoglobin ABG Potassium ABG Glucose Oxyhemoglobin Carboxyhemoglobin Sodium 146 H Potassium Chloride Carbon Dioxide 37 H BUN Creatinine < 0.2 L Glucose 118 H POC Glucose 111 H Calcium Ferritin Total Bilirubin Alkaline Phosphatase Lactate Dehydrogenase Total Creatine Kinase CK-MB (CK-2) Rel Index Troponin T C-Reactive Protein Total Protein Albumin 3.7 L Prealbumin LDL Cholesterol Direct Arterial Blood Glucose Arterial Blood Ionized Calcium Urine WBC (Auto) 03/07/20 03/07/20 03/07/20 05:20 17:45 23:32 WBC RBC Hgb Hct MCV MCH RDW Plt Count Lymph % (Auto) Lymph # (Auto) [place] # (Auto) Seg Neutrophils % Seg Neuts % (Manual) Lymphocytes % (Manual) Monocytes % (Manual) Basophils % (Manual) Seg Neutrophils # Seg Neutrophils # Man Lymphocytes # (Manual) Monocytes # (Manual) Eosinophils # (Manual) Basophils # (Manual) PT INR D-Dimer ABG pH POC ABG pCO2 POC ABG pO2 ABG pO2 ABG HCO3 ABG O2 Saturation ABG Base Excess ABG Hemoglobin ABG Oxyhemoglobin ABG Potassium ABG Glucose Oxyhemoglobin Carboxyhemoglobin Sodium Potassium Chloride Carbon Dioxide BUN Creatinine Glucose POC Glucose 113 H 124 H 210 H Calcium Ferritin Total Bilirubin Alkaline Phosphatase Lactate Dehydrogenase Total Creatine Kinase CK-MB (CK-2) Rel Index Troponin T C-Reactive Protein Total Protein Albumin Prealbumin LDL Cholesterol Direct Arterial Blood Glucose Arterial Blood Ionized Calcium Urine WBC (Auto) 03/08/20 03/08/20 03/08/20 05:35 06:43 06:43 WBC 28.9 H RBC 3.53 L Hgb 9.7 L Hct 30.3 L MCV MCH RDW 15.6 H Plt Count 578 H Lymph % (Auto) Lymph # (Auto) [place] # (Auto) Seg Neutrophils % Seg Neuts % (Manual) 93.0 H Lymphocytes % (Manual) 4.0 L Monocytes % (Manual) Basophils % (Manual) Seg Neutrophils # Seg Neutrophils # Man 26.9 H Lymphocytes # (Manual) Monocytes # (Manual) Eosinophils # (Manual) Basophils # (Manual) PT INR D-Dimer ABG pH POC ABG pCO2 POC ABG pO2 ABG pO2 ABG HCO3 ABG O2 Saturation ABG Base Excess ABG Hemoglobin ABG Oxyhemoglobin ABG Potassium ABG Glucose Oxyhemoglobin Carboxyhemoglobin Sodium 146 H Potassium Chloride Carbon Dioxide 35 H BUN 34 H Creatinine 0.3 L D Glucose 125 H POC Glucose 147 H Calcium Ferritin Total Bilirubin Alkaline Phosphatase Lactate Dehydrogenase Total Creatine Kinase CK-MB (CK-2) Rel Index Troponin T C-Reactive Protein Total Protein 5.9 L Albumin 3.2 L Prealbumin LDL Cholesterol Direct Arterial Blood Glucose Arterial Blood Ionized Calcium Urine WBC (Auto) 03/08/20 03/08/20 03/08/20 08:57 11:14 12:34 WBC RBC Hgb Hct MCV MCH RDW Plt Count Lymph % (Auto) Lymph # (Auto) [place] # (Auto) Seg Neutrophils % Seg Neuts % (Manual) Lymphocytes % (Manual) Monocytes % (Manual) Basophils % (Manual) Seg Neutrophils # Seg Neutrophils # Man Lymphocytes # (Manual) Monocytes # (Manual) Eosinophils # (Manual) Basophils # (Manual) PT INR D-Dimer ABG pH POC ABG pCO2 63.1 H POC ABG pO2 ABG pO2 ABG HCO3 ABG O2 Saturation ABG Base Excess ABG Hemoglobin 10.9 L ABG Oxyhemoglobin ABG Potassium ABG Glucose 176 H Oxyhemoglobin Carboxyhemoglobin Sodium Potassium Chloride Carbon Dioxide BUN Creatinine Glucose POC Glucose 171 H Calcium Ferritin Total Bilirubin Alkaline Phosphatase Lactate Dehydrogenase Total Creatine Kinase CK-MB (CK-2) Rel Index Troponin T C-Reactive Protein Total Protein Albumin Prealbumin LDL Cholesterol Direct Arterial Blood Glucose 176 H Arterial Blood Ionized Calcium 4.5 L Urine WBC (Auto) 10.0 H 03/08/20 03/08/20 03/09/20 18:02 23:43 05:49 WBC RBC Hgb Hct MCV MCH RDW Plt Count Lymph % (Auto) Lymph # (Auto) [place] # (Auto) Seg Neutrophils % Seg Neuts % (Manual) Lymphocytes % (Manual) Monocytes % (Manual) Basophils % (Manual) Seg Neutrophils # Seg Neutrophils # Man Lymphocytes # (Manual) Monocytes # (Manual) Eosinophils # (Manual) Basophils # (Manual) PT INR D-Dimer ABG pH POC ABG pCO2 POC ABG pO2 ABG pO2 ABG HCO3 ABG O2 Saturation ABG Base Excess ABG Hemoglobin ABG Oxyhemoglobin ABG Potassium ABG Glucose Oxyhemoglobin Carboxyhemoglobin Sodium Potassium Chloride Carbon Dioxide BUN Creatinine Glucose POC Glucose 157 H 134 H 163 H Calcium Ferritin Total Bilirubin Alkaline Phosphatase Lactate Dehydrogenase Total Creatine Kinase CK-MB (CK-2) Rel Index Troponin T C-Reactive Protein Total Protein Albumin Prealbumin LDL Cholesterol Direct Arterial Blood Glucose Arterial Blood Ionized Calcium Urine WBC (Auto) 03/09/20 03/09/20 03/09/20 08:35 08:35 12:11 WBC 23.4 H RBC 3.36 L Hgb 9.3 L Hct 28.8 L MCV MCH RDW 15.9 H Plt Count 521 H Lymph % (Auto) Lymph # (Auto) [place] # (Auto) Seg Neutrophils % Seg Neuts % (Manual) 87.0 H Lymphocytes % (Manual) 4.0 L Monocytes % (Manual) 9.0 H Basophils % (Manual) Seg Neutrophils # Seg Neutrophils # Man 20.4 H Lymphocytes # (Manual) 0.9 L Monocytes # (Manual) 2.1 H Eosinophils # (Manual) Basophils # (Manual) PT INR D-Dimer ABG pH POC ABG pCO2 POC ABG pO2 ABG pO2 ABG HCO3 ABG O2 Saturation ABG Base Excess ABG Hemoglobin ABG Oxyhemoglobin ABG Potassium ABG Glucose Oxyhemoglobin Carboxyhemoglobin Sodium 147 H Potassium Chloride Carbon Dioxide 37 H BUN 63 H Creatinine Glucose 154 H POC Glucose 128 H Calcium Ferritin Total Bilirubin Alkaline Phosphatase Lactate Dehydrogenase Total Creatine Kinase CK-MB (CK-2) Rel Index Troponin T C-Reactive Protein Total Protein Albumin Prealbumin LDL Cholesterol Direct Arterial Blood Glucose Arterial Blood Ionized Calcium Urine WBC (Auto) 03/09/20 03/10/20 03/10/20 17:51 00:25 05:41 WBC RBC Hgb Hct MCV MCH RDW Plt Count Lymph % (Auto) Lymph # (Auto) [place] # (Auto) Seg Neutrophils % Seg Neuts % (Manual) Lymphocytes % (Manual) Monocytes % (Manual) Basophils % (Manual) Seg Neutrophils # Seg Neutrophils # Man Lymphocytes # (Manual) Monocytes # (Manual) Eosinophils # (Manual) Basophils # (Manual) PT INR D-Dimer ABG pH POC ABG pCO2 POC ABG pO2 ABG pO2 ABG HCO3 ABG O2 Saturation ABG Base Excess ABG Hemoglobin ABG Oxyhemoglobin ABG Potassium ABG Glucose Oxyhemoglobin Carboxyhemoglobin Sodium Potassium Chloride Carbon Dioxide BUN Creatinine Glucose POC Glucose 127 H 128 H 153 H Calcium Ferritin Total Bilirubin Alkaline Phosphatase Lactate Dehydrogenase Total Creatine Kinase CK-MB (CK-2) Rel Index Troponin T C-Reactive Protein Total Protein Albumin Prealbumin LDL Cholesterol Direct Arterial Blood Glucose Arterial Blood Ionized Calcium Urine WBC (Auto) 03/10/20 03/10/20 03/10/20 06:14 06:14 12:02 WBC 18.3 H RBC 3.45 L Hgb 9.5 L Hct 29.5 L MCV MCH RDW 16.1 H Plt Count 494 H Lymph % (Auto) Lymph # (Auto) [place] # (Auto) Seg Neutrophils % Seg Neuts % (Manual) 95.0 H Lymphocytes % (Manual) 1.0 L Monocytes % (Manual) Basophils % (Manual) Seg Neutrophils # Seg Neutrophils # Man 17.4 H Lymphocytes # (Manual) 0.2 L Monocytes # (Manual) Eosinophils # (Manual) Basophils # (Manual) PT INR D-Dimer ABG pH POC ABG pCO2 POC ABG pO2 ABG pO2 ABG HCO3 ABG O2 Saturation ABG Base Excess ABG Hemoglobin ABG Oxyhemoglobin ABG Potassium ABG Glucose Oxyhemoglobin Carboxyhemoglobin Sodium 149 H Potassium Chloride Carbon Dioxide 35 H BUN 34 H Creatinine 0.2 L D Glucose 177 H POC Glucose 151 H Calcium Ferritin Total Bilirubin Alkaline Phosphatase Lactate Dehydrogenase Total Creatine Kinase CK-MB (CK-2) Rel Index Troponin T C-Reactive Protein Total Protein Albumin Prealbumin LDL Cholesterol Direct Arterial Blood Glucose Arterial Blood Ionized Calcium Urine WBC (Auto) 03/10/20 03/10/20 03/11/20 17:41 23:53 05:02 WBC RBC Hgb Hct MCV MCH RDW Plt Count Lymph % (Auto) Lymph # (Auto) [place] # (Auto) Seg Neutrophils % Seg Neuts % (Manual) Lymphocytes % (Manual) Monocytes % (Manual) Basophils % (Manual) Seg Neutrophils # Seg Neutrophils # Man Lymphocytes # (Manual) Monocytes # (Manual) Eosinophils # (Manual) Basophils # (Manual) PT INR D-Dimer ABG pH POC ABG pCO2 POC ABG pO2 ABG pO2 ABG HCO3 ABG O2 Saturation ABG Base Excess ABG Hemoglobin ABG Oxyhemoglobin ABG Potassium ABG Glucose Oxyhemoglobin Carboxyhemoglobin Sodium Potassium Chloride Carbon Dioxide BUN Creatinine Glucose POC Glucose 168 H 142 H 146 H Calcium Ferritin Total Bilirubin Alkaline Phosphatase Lactate Dehydrogenase Total Creatine Kinase CK-MB (CK-2) Rel Index Troponin T C-Reactive Protein Total Protein Albumin Prealbumin LDL Cholesterol Direct Arterial Blood Glucose Arterial Blood Ionized Calcium Urine WBC (Auto) 03/11/20 03/11/20 03/11/20 11:30 14:01 14:01 WBC 19.7 H RBC 3.04 L Hgb 8.7 L Hct 25.8 L MCV MCH RDW 15.6 H Plt Count Lymph % (Auto) Lymph # (Auto) [place] # (Auto) Seg Neutrophils % Seg Neuts % (Manual) Lymphocytes % (Manual) Monocytes % (Manual) Basophils % (Manual) Seg Neutrophils # Seg Neutrophils # Man Lymphocytes # (Manual) Monocytes # (Manual) Eosinophils # (Manual) Basophils # (Manual) PT INR D-Dimer ABG pH POC ABG pCO2 POC ABG pO2 ABG pO2 ABG HCO3 ABG O2 Saturation ABG Base Excess ABG Hemoglobin ABG Oxyhemoglobin ABG Potassium ABG Glucose Oxyhemoglobin Carboxyhemoglobin Sodium 151 H Potassium Chloride Carbon Dioxide 37 H BUN Creatinine < 0.2 L Glucose 171 H POC Glucose 248 H Calcium Ferritin Total Bilirubin Alkaline Phosphatase Lactate Dehydrogenase Total Creatine Kinase CK-MB (CK-2) Rel Index Troponin T C-Reactive Protein Total Protein Albumin Prealbumin LDL Cholesterol Direct Arterial Blood Glucose Arterial Blood Ionized Calcium Urine WBC (Auto) 03/11/20 03/11/20 03/12/20 17:09 23:52 04:39 WBC 19.9 H RBC 3.16 L Hgb 8.9 L Hct 27.5 L MCV MCH RDW 15.7 H Plt Count Lymph % (Auto) 6.8 L Lymph # (Auto) [place] # (Auto) 1.2 H Seg Neutrophils % 86.0 H Seg Neuts % (Manual) Lymphocytes % (Manual) Monocytes % (Manual) Basophils % (Manual) Seg Neutrophils # 17.1 H Seg Neutrophils # Man Lymphocytes # (Manual) Monocytes # (Manual) Eosinophils # (Manual) Basophils # (Manual) PT INR D-Dimer ABG pH POC ABG pCO2 POC ABG pO2 ABG pO2 ABG HCO3 ABG O2 Saturation ABG Base Excess ABG Hemoglobin ABG Oxyhemoglobin ABG Potassium ABG Glucose Oxyhemoglobin Carboxyhemoglobin Sodium Potassium Chloride Carbon Dioxide BUN Creatinine Glucose POC Glucose 124 H 131 H Calcium Ferritin Total Bilirubin Alkaline Phosphatase Lactate Dehydrogenase Total Creatine Kinase CK-MB (CK-2) Rel Index Troponin T C-Reactive Protein Total Protein Albumin Prealbumin LDL Cholesterol Direct Arterial Blood Glucose Arterial Blood Ionized Calcium Urine WBC (Auto) 03/12/20 03/12/20 03/12/20 04:39 05:28 11:34 WBC RBC Hgb Hct MCV MCH RDW Plt Count Lymph % (Auto) Lymph # (Auto) [place] # (Auto) Seg Neutrophils % Seg Neuts % (Manual) Lymphocytes % (Manual) Monocytes % (Manual) Basophils % (Manual) Seg Neutrophils # Seg Neutrophils # Man Lymphocytes # (Manual) Monocytes # (Manual) Eosinophils # (Manual) Basophils # (Manual) PT INR D-Dimer ABG pH POC ABG pCO2 POC ABG pO2 ABG pO2 ABG HCO3 ABG O2 Saturation ABG Base Excess ABG Hemoglobin ABG Oxyhemoglobin ABG Potassium ABG Glucose Oxyhemoglobin Carboxyhemoglobin Sodium 147 H Potassium Chloride Carbon Dioxide 40 H BUN Creatinine < 0.2 L Glucose 175 H POC Glucose 167 H 144 H Calcium Ferritin Total Bilirubin Alkaline Phosphatase Lactate Dehydrogenase Total Creatine Kinase CK-MB (CK-2) Rel Index Troponin T C-Reactive Protein Total Protein Albumin Prealbumin LDL Cholesterol Direct Arterial Blood Glucose Arterial Blood Ionized Calcium Urine WBC (Auto) 03/12/20 03/12/20 03/13/20 17:32 23:57 05:57 WBC RBC Hgb Hct MCV MCH RDW Plt Count Lymph % (Auto) Lymph # (Auto) [place] # (Auto) Seg Neutrophils % Seg Neuts % (Manual) Lymphocytes % (Manual) Monocytes % (Manual) Basophils % (Manual) Seg Neutrophils # Seg Neutrophils # Man Lymphocytes # (Manual) Monocytes # (Manual) Eosinophils # (Manual) Basophils # (Manual) PT INR D-Dimer ABG pH POC ABG pCO2 POC ABG pO2 ABG pO2 ABG HCO3 ABG O2 Saturation ABG Base Excess ABG Hemoglobin ABG Oxyhemoglobin ABG Potassium ABG Glucose Oxyhemoglobin Carboxyhemoglobin Sodium Potassium Chloride Carbon Dioxide BUN Creatinine Glucose POC Glucose 141 H 137 H 161 H Calcium Ferritin Total Bilirubin Alkaline Phosphatase Lactate Dehydrogenase Total Creatine Kinase CK-MB (CK-2) Rel Index Troponin T C-Reactive Protein Total Protein Albumin Prealbumin LDL Cholesterol Direct Arterial Blood Glucose Arterial Blood Ionized Calcium Urine WBC (Auto) 03/13/20 03/13/20 03/13/20 12:28 14:14 18:39 WBC RBC Hgb Hct MCV MCH RDW Plt Count Lymph % (Auto) Lymph # (Auto) [place] # (Auto) Seg Neutrophils % Seg Neuts % (Manual) Lymphocytes % (Manual) Monocytes % (Manual) Basophils % (Manual) Seg Neutrophils # Seg Neutrophils # Man Lymphocytes # (Manual) Monocytes # (Manual) Eosinophils # (Manual) Basophils # (Manual) PT INR D-Dimer ABG pH POC ABG pCO2 POC ABG pO2 ABG pO2 ABG HCO3 ABG O2 Saturation ABG Base Excess ABG Hemoglobin ABG Oxyhemoglobin ABG Potassium ABG Glucose Oxyhemoglobin Carboxyhemoglobin Sodium Potassium Chloride Carbon Dioxide 39 H BUN Creatinine < 0.2 L Glucose 129 H POC Glucose 130 H 125 H Calcium Ferritin Total Bilirubin Alkaline Phosphatase Lactate Dehydrogenase Total Creatine Kinase CK-MB (CK-2) Rel Index Troponin T C-Reactive Protein Total Protein Albumin Prealbumin LDL Cholesterol Direct Arterial Blood Glucose Arterial Blood Ionized Calcium Urine WBC (Auto) 03/13/20 03/14/20 03/14/20 23:33 05:24 08:07 WBC 16.8 H RBC 2.81 L Hgb 7.9 L Hct 23.9 L MCV MCH RDW 15.9 H Plt Count Lymph % (Auto) Lymph # (Auto) [place] # (Auto) Seg Neutrophils % Seg Neuts % (Manual) 84.0 H Lymphocytes % (Manual) 10.0 L Monocytes % (Manual) Basophils % (Manual) Seg Neutrophils # Seg Neutrophils # Man 14.1 H Lymphocytes # (Manual) Monocytes # (Manual) Eosinophils # (Manual) Basophils # (Manual) PT INR D-Dimer ABG pH POC ABG pCO2 POC ABG pO2 ABG pO2 ABG HCO3 ABG O2 Saturation ABG Base Excess ABG Hemoglobin ABG Oxyhemoglobin ABG Potassium ABG Glucose Oxyhemoglobin Carboxyhemoglobin Sodium Potassium Chloride Carbon Dioxide BUN Creatinine Glucose POC Glucose 146 H 125 H Calcium Ferritin Total Bilirubin Alkaline Phosphatase Lactate Dehydrogenase Total Creatine Kinase CK-MB (CK-2) Rel Index Troponin T C-Reactive Protein Total Protein Albumin Prealbumin LDL Cholesterol Direct Arterial Blood Glucose Arterial Blood Ionized Calcium Urine WBC (Auto) 03/14/20 03/14/20 03/14/20 08:07 12:21 18:26 WBC RBC Hgb Hct MCV MCH RDW Plt Count Lymph % (Auto) Lymph # (Auto) [place] # (Auto) Seg Neutrophils % Seg Neuts % (Manual) Lymphocytes % (Manual) Monocytes % (Manual) Basophils % (Manual) Seg Neutrophils # Seg Neutrophils # Man Lymphocytes # (Manual) Monocytes # (Manual) Eosinophils # (Manual) Basophils # (Manual) PT INR D-Dimer ABG pH POC ABG pCO2 POC ABG pO2 ABG pO2 ABG HCO3 ABG O2 Saturation ABG Base Excess ABG Hemoglobin ABG Oxyhemoglobin ABG Potassium ABG Glucose Oxyhemoglobin Carboxyhemoglobin Sodium Potassium Chloride 97.0 L Carbon Dioxide 37 H BUN Creatinine < 0.2 L Glucose 129 H POC Glucose 109 H 142 H Calcium 8.3 L Ferritin Total Bilirubin Alkaline Phosphatase Lactate Dehydrogenase Total Creatine Kinase CK-MB (CK-2) Rel Index Troponin T C-Reactive Protein Total Protein Albumin Prealbumin LDL Cholesterol Direct Arterial Blood Glucose Arterial Blood Ionized Calcium Urine WBC (Auto) 03/14/20 03/15/20 03/15/20 23:57 05:46 08:06 WBC 19.7 H RBC 3.29 L Hgb 9.1 L Hct 28.0 L MCV MCH RDW 15.9 H Plt Count Lymph % (Auto) Lymph # (Auto) [place] # (Auto) Seg Neutrophils % Seg Neuts % (Manual) Lymphocytes % (Manual) Monocytes % (Manual) Basophils % (Manual) Seg Neutrophils # Seg Neutrophils # Man Lymphocytes # (Manual) Monocytes # (Manual) Eosinophils # (Manual) Basophils # (Manual) PT INR D-Dimer ABG pH POC ABG pCO2 POC ABG pO2 ABG pO2 ABG HCO3 ABG O2 Saturation ABG Base Excess ABG Hemoglobin ABG Oxyhemoglobin ABG Potassium ABG Glucose Oxyhemoglobin Carboxyhemoglobin Sodium Potassium Chloride Carbon Dioxide BUN Creatinine Glucose POC Glucose 157 H 118 H Calcium Ferritin Total Bilirubin Alkaline Phosphatase Lactate Dehydrogenase Total Creatine Kinase CK-MB (CK-2) Rel Index Troponin T C-Reactive Protein Total Protein Albumin Prealbumin LDL Cholesterol Direct Arterial Blood Glucose Arterial Blood Ionized Calcium Urine WBC (Auto) 03/15/20 03/15/20 03/15/20 08:06 12:44 18:09 WBC RBC Hgb Hct MCV MCH RDW Plt Count Lymph % (Auto) Lymph # (Auto) [place] # (Auto) Seg Neutrophils % Seg Neuts % (Manual) Lymphocytes % (Manual) Monocytes % (Manual) Basophils % (Manual) Seg Neutrophils # Seg Neutrophils # Man Lymphocytes # (Manual) Monocytes # (Manual) Eosinophils # (Manual) Basophils # (Manual) PT INR D-Dimer ABG pH POC ABG pCO2 POC ABG pO2 ABG pO2 ABG HCO3 ABG O2 Saturation ABG Base Excess ABG Hemoglobin ABG Oxyhemoglobin ABG Potassium ABG Glucose Oxyhemoglobin Carboxyhemoglobin Sodium 136 L Potassium Chloride 93.6 L Carbon Dioxide 37 H BUN Creatinine < 0.2 L Glucose 132 H POC Glucose 151 H 164 H Calcium Ferritin Total Bilirubin Alkaline Phosphatase Lactate Dehydrogenase Total Creatine Kinase CK-MB (CK-2) Rel Index Troponin T C-Reactive Protein Total Protein Albumin Prealbumin LDL Cholesterol Direct Arterial Blood Glucose Arterial Blood Ionized Calcium Urine WBC (Auto) 03/15/20 03/16/20 03/16/20 23:26 05:39 11:58 WBC RBC Hgb Hct MCV MCH RDW Plt Count Lymph % (Auto) Lymph # (Auto) [place] # (Auto) Seg Neutrophils % Seg Neuts % (Manual) Lymphocytes % (Manual) Monocytes % (Manual) Basophils % (Manual) Seg Neutrophils # Seg Neutrophils # Man Lymphocytes # (Manual) Monocytes # (Manual) Eosinophils # (Manual) Basophils # (Manual) PT INR D-Dimer ABG pH POC ABG pCO2 POC ABG pO2 ABG pO2 ABG HCO3 ABG O2 Saturation ABG Base Excess ABG Hemoglobin ABG Oxyhemoglobin ABG Potassium ABG Glucose Oxyhemoglobin Carboxyhemoglobin Sodium Potassium Chloride Carbon Dioxide BUN Creatinine Glucose POC Glucose 136 H 116 H 109 H Calcium Ferritin Total Bilirubin Alkaline Phosphatase Lactate Dehydrogenase Total Creatine Kinase CK-MB (CK-2) Rel Index Troponin T C-Reactive Protein Total Protein Albumin Prealbumin LDL Cholesterol Direct Arterial Blood Glucose Arterial Blood Ionized Calcium Urine WBC (Auto) 03/16/20 03/17/20 03/17/20 23:56 04:40 04:40 WBC 18.0 H RBC 3.33 L Hgb 9.5 L Hct 28.8 L MCV MCH RDW 16.4 H Plt Count 499 H Lymph % (Auto) Lymph # (Auto) [place] # (Auto) Seg Neutrophils % Seg Neuts % (Manual) 82.0 H Lymphocytes % (Manual) 8.0 L Monocytes % (Manual) Basophils % (Manual) Seg Neutrophils # Seg Neutrophils # Man 14.8 H Lymphocytes # (Manual) Monocytes # (Manual) 1.3 H Eosinophils # (Manual) Basophils # (Manual) 0.2 H PT INR D-Dimer ABG pH POC ABG pCO2 POC ABG pO2 ABG pO2 ABG HCO3 ABG O2 Saturation ABG Base Excess ABG Hemoglobin ABG Oxyhemoglobin ABG Potassium ABG Glucose Oxyhemoglobin Carboxyhemoglobin Sodium Potassium Chloride 97.7 L Carbon Dioxide 32 H BUN Creatinine < 0.2 L Glucose 114 H POC Glucose 131 H Calcium Ferritin Total Bilirubin Alkaline Phosphatase Lactate Dehydrogenase Total Creatine Kinase CK-MB (CK-2) Rel Index Troponin T C-Reactive Protein Total Protein Albumin Prealbumin LDL Cholesterol Direct Arterial Blood Glucose Arterial Blood Ionized Calcium Urine WBC (Auto) 03/18/20 03/18/20 03/18/20 00:21 05:21 11:55 WBC RBC Hgb Hct MCV MCH RDW Plt Count Lymph % (Auto) Lymph # (Auto) [place] # (Auto) Seg Neutrophils % Seg Neuts % (Manual) Lymphocytes % (Manual) Monocytes % (Manual) Basophils % (Manual) Seg Neutrophils # Seg Neutrophils # Man Lymphocytes # (Manual) Monocytes # (Manual) Eosinophils # (Manual) Basophils # (Manual) PT INR D-Dimer ABG pH POC ABG pCO2 POC ABG pO2 ABG pO2 ABG HCO3 ABG O2 Saturation ABG Base Excess ABG Hemoglobin ABG Oxyhemoglobin ABG Potassium ABG Glucose Oxyhemoglobin Carboxyhemoglobin Sodium Potassium Chloride Carbon Dioxide BUN Creatinine Glucose POC Glucose 124 H 138 H 119 H Calcium Ferritin Total Bilirubin Alkaline Phosphatase Lactate Dehydrogenase Total Creatine Kinase CK-MB (CK-2) Rel Index Troponin T C-Reactive Protein Total Protein Albumin Prealbumin LDL Cholesterol Direct Arterial Blood Glucose Arterial Blood Ionized Calcium Urine WBC (Auto) 03/18/20 03/18/20 03/19/20 17:03 23:58 05:24 WBC RBC Hgb Hct MCV MCH RDW Plt Count Lymph % (Auto) Lymph # (Auto) [place] # (Auto) Seg Neutrophils % Seg Neuts % (Manual) Lymphocytes % (Manual) Monocytes % (Manual) Basophils % (Manual) Seg Neutrophils # Seg Neutrophils # Man Lymphocytes # (Manual) Monocytes # (Manual) Eosinophils # (Manual) Basophils # (Manual) PT INR D-Dimer ABG pH POC ABG pCO2 POC ABG pO2 ABG pO2 ABG HCO3 ABG O2 Saturation ABG Base Excess ABG Hemoglobin ABG Oxyhemoglobin ABG Potassium ABG Glucose Oxyhemoglobin Carboxyhemoglobin Sodium Potassium Chloride Carbon Dioxide BUN Creatinine Glucose POC Glucose 128 H 128 H 115 H Calcium Ferritin Total Bilirubin Alkaline Phosphatase Lactate Dehydrogenase Total Creatine Kinase CK-MB (CK-2) Rel Index Troponin T C-Reactive Protein Total Protein Albumin Prealbumin LDL Cholesterol Direct Arterial Blood Glucose Arterial Blood Ionized Calcium Urine WBC (Auto) 03/19/20 03/19/20 03/19/20 08:05 08:05 11:56 WBC 16.8 H RBC 3.36 L Hgb 9.4 L Hct 28.8 L MCV MCH RDW 17.4 H Plt Count 567 H Lymph % (Auto) 7.8 L Lymph # (Auto) [place] # (Auto) 1.2 H Seg Neutrophils % 83.5 H Seg Neuts % (Manual) Lymphocytes % (Manual) Monocytes % (Manual) Basophils % (Manual) Seg Neutrophils # 14.1 H Seg Neutrophils # Man Lymphocytes # (Manual) Monocytes # (Manual) Eosinophils # (Manual) Basophils # (Manual) PT INR D-Dimer ABG pH POC ABG pCO2 POC ABG pO2 ABG pO2 ABG HCO3 ABG O2 Saturation ABG Base Excess ABG Hemoglobin ABG Oxyhemoglobin ABG Potassium ABG Glucose Oxyhemoglobin Carboxyhemoglobin Sodium Potassium Chloride Carbon Dioxide 36 H BUN Creatinine < 0.2 L Glucose 135 H POC Glucose 128 H Calcium Ferritin Total Bilirubin Alkaline Phosphatase Lactate Dehydrogenase Total Creatine Kinase CK-MB (CK-2) Rel Index Troponin T C-Reactive Protein Total Protein Albumin Prealbumin LDL Cholesterol Direct Arterial Blood Glucose Arterial Blood Ionized Calcium Urine WBC (Auto) 03/19/20 03/20/20 03/20/20 23:59 05:12 16:52 WBC RBC Hgb Hct MCV MCH RDW Plt Count Lymph % (Auto) Lymph # (Auto) [place] # (Auto) Seg Neutrophils % Seg Neuts % (Manual) Lymphocytes % (Manual) Monocytes % (Manual) Basophils % (Manual) Seg Neutrophils # Seg Neutrophils # Man Lymphocytes # (Manual) Monocytes # (Manual) Eosinophils # (Manual) Basophils # (Manual) PT INR D-Dimer ABG pH POC ABG pCO2 POC ABG pO2 ABG pO2 ABG HCO3 ABG O2 Saturation ABG Base Excess ABG Hemoglobin ABG Oxyhemoglobin ABG Potassium ABG Glucose Oxyhemoglobin Carboxyhemoglobin Sodium Potassium Chloride Carbon Dioxide BUN Creatinine Glucose POC Glucose 120 H 131 H 124 H Calcium Ferritin Total Bilirubin Alkaline Phosphatase Lactate Dehydrogenase Total Creatine Kinase CK-MB (CK-2) Rel Index Troponin T C-Reactive Protein Total Protein Albumin Prealbumin LDL Cholesterol Direct Arterial Blood Glucose Arterial Blood Ionized Calcium Urine WBC (Auto) 03/20/20 03/21/20 03/21/20 23:35 04:50 07:35 WBC 15.2 H RBC 3.39 L Hgb 9.4 L Hct 29.4 L MCV MCH RDW 17.6 H Plt Count 518 H Lymph % (Auto) Lymph # (Auto) [place] # (Auto) Seg Neutrophils % Seg Neuts % (Manual) 83.0 H Lymphocytes % (Manual) 10.0 L Monocytes % (Manual) Basophils % (Manual) 2.0 H Seg Neutrophils # Seg Neutrophils # Man 12.6 H Lymphocytes # (Manual) Monocytes # (Manual) Eosinophils # (Manual) Basophils # (Manual) 0.3 H PT INR D-Dimer ABG pH POC ABG pCO2 POC ABG pO2 ABG pO2 ABG HCO3 ABG O2 Saturation ABG Base Excess ABG Hemoglobin ABG Oxyhemoglobin ABG Potassium ABG Glucose Oxyhemoglobin Carboxyhemoglobin Sodium Potassium Chloride Carbon Dioxide BUN Creatinine Glucose POC Glucose 125 H 127 H Calcium Ferritin Total Bilirubin Alkaline Phosphatase Lactate Dehydrogenase Total Creatine Kinase CK-MB (CK-2) Rel Index Troponin T C-Reactive Protein Total Protein Albumin Prealbumin LDL Cholesterol Direct Arterial Blood Glucose Arterial Blood Ionized Calcium Urine WBC (Auto) 03/21/20 03/21/20 03/21/20 07:35 11:45 17:22 WBC RBC Hgb Hct MCV MCH RDW Plt Count Lymph % (Auto) Lymph # (Auto) [place] # (Auto) Seg Neutrophils % Seg Neuts % (Manual) Lymphocytes % (Manual) Monocytes % (Manual) Basophils % (Manual) Seg Neutrophils # Seg Neutrophils # Man Lymphocytes # (Manual) Monocytes # (Manual) Eosinophils # (Manual) Basophils # (Manual) PT INR D-Dimer ABG pH POC ABG pCO2 POC ABG pO2 ABG pO2 ABG HCO3 ABG O2 Saturation ABG Base Excess ABG Hemoglobin ABG Oxyhemoglobin ABG Potassium ABG Glucose Oxyhemoglobin Carboxyhemoglobin Sodium 136 L Potassium Chloride 97.7 L Carbon Dioxide 32 H BUN Creatinine < 0.2 L Glucose 103 H POC Glucose 126 H 120 H Calcium Ferritin Total Bilirubin Alkaline Phosphatase Lactate Dehydrogenase Total Creatine Kinase CK-MB (CK-2) Rel Index Troponin T C-Reactive Protein Total Protein Albumin Prealbumin LDL Cholesterol Direct Arterial Blood Glucose Arterial Blood Ionized Calcium Urine WBC (Auto) 03/22/20 03/22/20 03/22/20 05:09 06:34 06:34 WBC 17.5 H RBC 3.52 L Hgb 10.0 L Hct 30.7 L MCV MCH RDW 17.5 H Plt Count 499 H Lymph % (Auto) Lymph # (Auto) [place] # (Auto) Seg Neutrophils % Seg Neuts % (Manual) 80.0 H Lymphocytes % (Manual) 10.0 L Monocytes % (Manual) Basophils % (Manual) Seg Neutrophils # Seg Neutrophils # Man 14.0 H Lymphocytes # (Manual) Monocytes # (Manual) Eosinophils # (Manual) Basophils # (Manual) PT INR D-Dimer ABG pH POC ABG pCO2 POC ABG pO2 ABG pO2 ABG HCO3 ABG O2 Saturation ABG Base Excess ABG Hemoglobin ABG Oxyhemoglobin ABG Potassium ABG Glucose Oxyhemoglobin Carboxyhemoglobin Sodium Potassium Chloride 96.6 L Carbon Dioxide 38 H BUN Creatinine < 0.2 L Glucose 139 H POC Glucose 125 H Calcium Ferritin Total Bilirubin Alkaline Phosphatase Lactate Dehydrogenase Total Creatine Kinase CK-MB (CK-2) Rel Index Troponin T C-Reactive Protein Total Protein Albumin Prealbumin LDL Cholesterol Direct Arterial Blood Glucose Arterial Blood Ionized Calcium Urine WBC (Auto) 03/22/20 03/22/20 03/22/20 11:45 18:00 23:32 WBC RBC Hgb Hct MCV MCH RDW Plt Count Lymph % (Auto) Lymph # (Auto) [place] # (Auto) Seg Neutrophils % Seg Neuts % (Manual) Lymphocytes % (Manual) Monocytes % (Manual) Basophils % (Manual) Seg Neutrophils # Seg Neutrophils # Man Lymphocytes # (Manual) Monocytes # (Manual) Eosinophils # (Manual) Basophils # (Manual) PT INR D-Dimer ABG pH POC ABG pCO2 POC ABG pO2 ABG pO2 ABG HCO3 ABG O2 Saturation ABG Base Excess ABG Hemoglobin ABG Oxyhemoglobin ABG Potassium ABG Glucose Oxyhemoglobin Carboxyhemoglobin Sodium Potassium Chloride Carbon Dioxide BUN Creatinine Glucose POC Glucose 135 H 133 H Calcium Ferritin Total Bilirubin Alkaline Phosphatase Lactate Dehydrogenase Total Creatine Kinase CK-MB (CK-2) Rel Index Troponin T 0.113 H* C-Reactive Protein Total Protein Albumin Prealbumin LDL Cholesterol Direct Arterial Blood Glucose Arterial Blood Ionized Calcium Urine WBC (Auto) 03/23/20 03/23/20 03/23/20 01:47 06:21 07:57 WBC RBC Hgb Hct MCV MCH RDW Plt Count Lymph % (Auto) Lymph # (Auto) [place] # (Auto) Seg Neutrophils % Seg Neuts % (Manual) Lymphocytes % (Manual) Monocytes % (Manual) Basophils % (Manual) Seg Neutrophils # Seg Neutrophils # Man Lymphocytes # (Manual) Monocytes # (Manual) Eosinophils # (Manual) Basophils # (Manual) PT INR D-Dimer ABG pH POC ABG pCO2 POC ABG pO2 ABG pO2 ABG HCO3 ABG O2 Saturation ABG Base Excess ABG Hemoglobin ABG Oxyhemoglobin ABG Potassium ABG Glucose Oxyhemoglobin Carboxyhemoglobin Sodium Potassium Chloride Carbon Dioxide BUN Creatinine Glucose POC Glucose 130 H Calcium Ferritin Total Bilirubin Alkaline Phosphatase Lactate Dehydrogenase Total Creatine Kinase CK-MB (CK-2) Rel Index Troponin T 0.143 H* D 0.105 H* D C-Reactive Protein Total Protein Albumin Prealbumin LDL Cholesterol Direct Arterial Blood Glucose Arterial Blood Ionized Calcium Urine WBC (Auto) 03/23/20 03/24/20 03/24/20 12:02 05:33 07:15 WBC 18.0 H RBC Hgb 11.0 L Hct 34.0 L MCV MCH RDW 17.4 H Plt Count 520 H Lymph % (Auto) Lymph # (Auto) [place] # (Auto) Seg Neutrophils % Seg Neuts % (Manual) 88.0 H Lymphocytes % (Manual) 7.0 L Monocytes % (Manual) Basophils % (Manual) Seg Neutrophils # Seg Neutrophils # Man 15.8 H Lymphocytes # (Manual) Monocytes # (Manual) Eosinophils # (Manual) Basophils # (Manual) PT INR D-Dimer ABG pH POC ABG pCO2 POC ABG pO2 ABG pO2 ABG HCO3 ABG O2 Saturation ABG Base Excess ABG Hemoglobin ABG Oxyhemoglobin ABG Potassium ABG Glucose Oxyhemoglobin Carboxyhemoglobin Sodium Potassium Chloride Carbon Dioxide BUN Creatinine Glucose POC Glucose 137 H 112 H Calcium Ferritin Total Bilirubin Alkaline Phosphatase Lactate Dehydrogenase Total Creatine Kinase CK-MB (CK-2) Rel Index Troponin T C-Reactive Protein Total Protein Albumin Prealbumin LDL Cholesterol Direct Arterial Blood Glucose Arterial Blood Ionized Calcium Urine WBC (Auto) 03/24/20 03/24/20 03/24/20 07:15 11:22 23:30 WBC RBC Hgb Hct MCV MCH RDW Plt Count Lymph % (Auto) Lymph # (Auto) [place] # (Auto) Seg Neutrophils % Seg Neuts % (Manual) Lymphocytes % (Manual) Monocytes % (Manual) Basophils % (Manual) Seg Neutrophils # Seg Neutrophils # Man Lymphocytes # (Manual) Monocytes # (Manual) Eosinophils # (Manual) Basophils # (Manual) PT INR D-Dimer ABG pH POC ABG pCO2 POC ABG pO2 ABG pO2 ABG HCO3 ABG O2 Saturation ABG Base Excess ABG Hemoglobin ABG Oxyhemoglobin ABG Potassium ABG Glucose Oxyhemoglobin Carboxyhemoglobin Sodium Potassium Chloride 96.6 L Carbon Dioxide 38 H BUN Creatinine < 0.2 L Glucose 141 H POC Glucose 130 H 120 H Calcium Ferritin Total Bilirubin Alkaline Phosphatase Lactate Dehydrogenase Total Creatine Kinase CK-MB (CK-2) Rel Index Troponin T C-Reactive Protein Total Protein Albumin Prealbumin LDL Cholesterol Direct Arterial Blood Glucose Arterial Blood Ionized Calcium Urine WBC (Auto) 03/25/20 03/25/20 03/25/20 05:48 17:53 23:18 WBC RBC Hgb Hct MCV MCH RDW Plt Count Lymph % (Auto) Lymph # (Auto) [place] # (Auto) Seg Neutrophils % Seg Neuts % (Manual) Lymphocytes % (Manual) Monocytes % (Manual) Basophils % (Manual) Seg Neutrophils # Seg Neutrophils # Man Lymphocytes # (Manual) Monocytes # (Manual) Eosinophils # (Manual) Basophils # (Manual) PT INR D-Dimer ABG pH POC ABG pCO2 POC ABG pO2 ABG pO2 ABG HCO3 ABG O2 Saturation ABG Base Excess ABG Hemoglobin ABG Oxyhemoglobin ABG Potassium ABG Glucose Oxyhemoglobin Carboxyhemoglobin Sodium Potassium Chloride Carbon Dioxide BUN Creatinine Glucose POC Glucose 124 H 109 H 131 H Calcium Ferritin Total Bilirubin Alkaline Phosphatase Lactate Dehydrogenase Total Creatine Kinase CK-MB (CK-2) Rel Index Troponin T C-Reactive Protein Total Protein Albumin Prealbumin LDL Cholesterol Direct Arterial Blood Glucose Arterial Blood Ionized Calcium Urine WBC (Auto) 03/26/20 03/26/20 03/26/20 05:21 08:49 08:49 WBC 19.7 H RBC Hgb 10.7 L Hct 33.5 L MCV MCH 27 L RDW 17.1 H Plt Count 480 H Lymph % (Auto) 5.7 L Lymph # (Auto) 1.1 L [place] # (Auto) 1.2 H Seg Neutrophils % 87.7 H Seg Neuts % (Manual) Lymphocytes % (Manual) Monocytes % (Manual) Basophils % (Manual) Seg Neutrophils # 17.2 H Seg Neutrophils # Man Lymphocytes # (Manual) Monocytes # (Manual) Eosinophils # (Manual) Basophils # (Manual) PT INR D-Dimer ABG pH POC ABG pCO2 POC ABG pO2 ABG pO2 ABG HCO3 ABG O2 Saturation ABG Base Excess ABG Hemoglobin ABG Oxyhemoglobin ABG Potassium ABG Glucose Oxyhemoglobin Carboxyhemoglobin Sodium Potassium Chloride 97.2 L Carbon Dioxide 36 H BUN Creatinine < 0.2 L Glucose 127 H POC Glucose 116 H Calcium Ferritin Total Bilirubin Alkaline Phosphatase Lactate Dehydrogenase Total Creatine Kinase CK-MB (CK-2) Rel Index Troponin T C-Reactive Protein Total Protein Albumin Prealbumin LDL Cholesterol Direct Arterial Blood Glucose Arterial Blood Ionized Calcium Urine WBC (Auto) 03/26/20 03/26/20 03/26/20 11:38 18:44 23:06 WBC RBC Hgb Hct MCV MCH RDW Plt Count Lymph % (Auto) Lymph # (Auto) [place] # (Auto) Seg Neutrophils % Seg Neuts % (Manual) Lymphocytes % (Manual) Monocytes % (Manual) Basophils % (Manual) Seg Neutrophils # Seg Neutrophils # Man Lymphocytes # (Manual) Monocytes # (Manual) Eosinophils # (Manual) Basophils # (Manual) PT INR D-Dimer ABG pH POC ABG pCO2 POC ABG pO2 ABG pO2 ABG HCO3 ABG O2 Saturation ABG Base Excess ABG Hemoglobin ABG Oxyhemoglobin ABG Potassium ABG Glucose Oxyhemoglobin Carboxyhemoglobin Sodium Potassium Chloride Carbon Dioxide BUN Creatinine Glucose POC Glucose 120 H 111 H 134 H Calcium Ferritin Total Bilirubin Alkaline Phosphatase Lactate Dehydrogenase Total Creatine Kinase CK-MB (CK-2) Rel Index Troponin T C-Reactive Protein Total Protein Albumin Prealbumin LDL Cholesterol Direct Arterial Blood Glucose Arterial Blood Ionized Calcium Urine WBC (Auto) 03/27/20 03/27/20 03/27/20 05:41 05:59 05:59 WBC 18.6 H RBC Hgb 10.1 L Hct 31.4 L MCV MCH RDW 17.2 H Plt Count Lymph % (Auto) 8.0 L Lymph # (Auto) [place] # (Auto) 1.2 H Seg Neutrophils % 84.7 H Seg Neuts % (Manual) Lymphocytes % (Manual) Monocytes % (Manual) Basophils % (Manual) Seg Neutrophils # 15.8 H Seg Neutrophils # Man Lymphocytes # (Manual) Monocytes # (Manual) Eosinophils # (Manual) Basophils # (Manual) PT INR D-Dimer ABG pH POC ABG pCO2 POC ABG pO2 ABG pO2 ABG HCO3 ABG O2 Saturation ABG Base Excess ABG Hemoglobin ABG Oxyhemoglobin ABG Potassium ABG Glucose Oxyhemoglobin Carboxyhemoglobin Sodium Potassium Chloride Carbon Dioxide 34 H BUN Creatinine < 0.2 L Glucose 127 H POC Glucose 129 H Calcium Ferritin Total Bilirubin Alkaline Phosphatase Lactate Dehydrogenase Total Creatine Kinase CK-MB (CK-2) Rel Index Troponin T C-Reactive Protein Total Protein Albumin Prealbumin LDL Cholesterol Direct Arterial Blood Glucose Arterial Blood Ionized Calcium Urine WBC (Auto) 03/27/20 03/27/20 03/28/20 17:28 23:22 05:23 WBC RBC Hgb Hct MCV MCH RDW Plt Count Lymph % (Auto) Lymph # (Auto) [place] # (Auto) Seg Neutrophils % Seg Neuts % (Manual) Lymphocytes % (Manual) Monocytes % (Manual) Basophils % (Manual) Seg Neutrophils # Seg Neutrophils # Man Lymphocytes # (Manual) Monocytes # (Manual) Eosinophils # (Manual) Basophils # (Manual) PT INR D-Dimer ABG pH POC ABG pCO2 POC ABG pO2 ABG pO2 ABG HCO3 ABG O2 Saturation ABG Base Excess ABG Hemoglobin ABG Oxyhemoglobin ABG Potassium ABG Glucose Oxyhemoglobin Carboxyhemoglobin Sodium Potassium Chloride Carbon Dioxide BUN Creatinine Glucose POC Glucose 108 H 119 H 129 H Calcium Ferritin Total Bilirubin Alkaline Phosphatase Lactate Dehydrogenase Total Creatine Kinase CK-MB (CK-2) Rel Index Troponin T C-Reactive Protein Total Protein Albumin Prealbumin LDL Cholesterol Direct Arterial Blood Glucose Arterial Blood Ionized Calcium Urine WBC (Auto) 03/28/20 03/28/20 03/28/20 10:28 10:28 11:36 WBC 23.6 H RBC 3.62 L Hgb 10.0 L Hct 30.8 L MCV MCH RDW 16.4 H Plt Count Lymph % (Auto) Lymph # (Auto) [place] # (Auto) Seg Neutrophils % Seg Neuts % (Manual) 89.0 H Lymphocytes % (Manual) 5.0 L Monocytes % (Manual) Basophils % (Manual) Seg Neutrophils # Seg Neutrophils # Man 21.0 H Lymphocytes # (Manual) Monocytes # (Manual) 1.2 H Eosinophils # (Manual) Basophils # (Manual) 0.2 H PT INR D-Dimer ABG pH POC ABG pCO2 POC ABG pO2 ABG pO2 ABG HCO3 ABG O2 Saturation ABG Base Excess ABG Hemoglobin ABG Oxyhemoglobin ABG Potassium ABG Glucose Oxyhemoglobin Carboxyhemoglobin Sodium 134 L Potassium Chloride 94.2 L Carbon Dioxide 35 H BUN Creatinine < 0.2 L Glucose 134 H POC Glucose Calcium Ferritin Total Bilirubin Alkaline Phosphatase Lactate Dehydrogenase Total Creatine Kinase CK-MB (CK-2) Rel Index Troponin T C-Reactive Protein Total Protein Albumin Prealbumin LDL Cholesterol Direct Arterial Blood Glucose Arterial Blood Ionized Calcium Urine WBC (Auto) 39.0 H 03/28/20 03/28/20 03/28/20 11:51 17:08 17:17 WBC RBC Hgb Hct MCV MCH RDW Plt Count Lymph % (Auto) Lymph # (Auto) [place] # (Auto) Seg Neutrophils % Seg Neuts % (Manual) Lymphocytes % (Manual) Monocytes % (Manual) Basophils % (Manual) Seg Neutrophils # Seg Neutrophils # Man Lymphocytes # (Manual) Monocytes # (Manual) Eosinophils # (Manual) Basophils # (Manual) PT INR D-Dimer ABG pH POC ABG pCO2 POC ABG pO2 ABG pO2 ABG HCO3 ABG O2 Saturation ABG Base Excess ABG Hemoglobin ABG Oxyhemoglobin ABG Potassium ABG Glucose Oxyhemoglobin Carboxyhemoglobin Sodium Potassium Chloride Carbon Dioxide BUN Creatinine Glucose POC Glucose 123 H 112 H Calcium Ferritin Total Bilirubin Alkaline Phosphatase Lactate Dehydrogenase Total Creatine Kinase 47 L CK-MB (CK-2) Rel Index 4.6 H Troponin T 0.090 H C-Reactive Protein Total Protein Albumin Prealbumin LDL Cholesterol Direct Arterial Blood Glucose Arterial Blood Ionized Calcium Urine WBC (Auto) 03/28/20 03/29/20 03/29/20 23:22 05:22 10:58 WBC RBC Hgb Hct MCV MCH RDW Plt Count Lymph % (Auto) Lymph # (Auto) [place] # (Auto) Seg Neutrophils % Seg Neuts % (Manual) Lymphocytes % (Manual) Monocytes % (Manual) Basophils % (Manual) Seg Neutrophils # Seg Neutrophils # Man Lymphocytes # (Manual) Monocytes # (Manual) Eosinophils # (Manual) Basophils # (Manual) PT INR D-Dimer ABG pH POC ABG pCO2 POC ABG pO2 ABG pO2 ABG HCO3 ABG O2 Saturation ABG Base Excess ABG Hemoglobin ABG Oxyhemoglobin ABG Potassium ABG Glucose Oxyhemoglobin Carboxyhemoglobin Sodium Potassium Chloride Carbon Dioxide BUN Creatinine Glucose POC Glucose 122 H 116 H 133 H Calcium Ferritin Total Bilirubin Alkaline Phosphatase Lactate Dehydrogenase Total Creatine Kinase CK-MB (CK-2) Rel Index Troponin T C-Reactive Protein Total Protein Albumin Prealbumin LDL Cholesterol Direct Arterial Blood Glucose Arterial Blood Ionized Calcium Urine WBC (Auto) Chest x-ray: image reviewed (no acute process) Allied health notes reviewed: nursing
--- NOTE | 2020-03-29 16:24 | Progress Note ---
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 Patient was on a trilogy machine for breathing 18/11. EMS arrived, patient had O2 sats in the 80s. EMS attempted to place patient on their CPAP machine, hill john patient did not tolerate. Patient was admitted to the ICU with diagnosis of acute hypoxic respiratory failure and placed on BiPAP. Patient initially tolerated but later deteriorated with respiratory status. CTA chest showed no PE but significant for bilateral pneumonia. Doppler ultrasound also negative for DVT. COVID-19 test ordered. Due to persistent hypoxia, patient was intubated on 02/26/2020 at 1500. Patient now on mechanical ventilation in the ICU. 02/26/2020. Blood cultures are negative x48 hours and Covid testing negative as well. Continue antibiotics per ID recommendations for community-acquired bilateral pneumonia. Cardiology consultation for elevated troponin. Check echocardiogram. 02/27/2020. Events of yesterday noted with asystole following V. fib arrest. Patient currently on AC mode rate 20, tidal volume 400, FiO2 50% and a PEEP of 6. Follow-up echocardiogram for elevated troponin. Cardiology suspects NSTEMI Type 2 in the setting of acute resp failure. Chest CTA and BLE Dopplers neg. we will discontinue Decadron given the Covid PCR is negative. 02/25/2020. CTA of the chest reveals no PE but does illustrate the bilateral pneumonia. Doppler ultrasound also negative for DVT. Blood cultures are pending. Await COVID-19 testing. Patient currently requiring BiPAP IPAP 24/EPAP 6 with FiO2 of 25%. Continue O2 and BiPAP as clinically indicated. ID and pulmonary consulted. 02/26/2020. Blood cultures are negative x48 hours and Covid testing negative as well. Continue antibiotics per ID recommendations for community-acquired bilateral pneumonia. Cardiology consultation for elevated troponin. Check echocardiogram. 02/27/2020. Events of yesterday noted with asystole following V. fib arrest. Patient currently on AC mode rate 20, tidal volume 400, FiO2 50% and a PEEP of 6. Follow-up echocardiogram for elevated troponin. Cardiology suspects NSTEMI Type 2 in the setting of acute resp failure. Chest CTA and BLE Dopplers neg. we will discontinue Decadron given the Covid PCR is negative. 02/28/2020. I spoke with the sister Felisa Eli who is the power of attorney lawyer regarding advanced directives and she instructed me that she would like to continue with aggressive care at this time. I informed her of the guarded prognosis and high mortality/morbidity and she voiced understanding. Patient currently with AC mode ventilation rate 18, tidal volume 400, FiO2 40% and a PEEP of 6. Continue antibiotics for pneumonia. ID previously consulted. Also consult neurology with regards to ALS. 02/29/2020; patient is intubated and on CPAP patient is alert and oriented. Patient has ALS. Dr. Álvarez spoke with his sister and she wants aggressive care. Continue antibiotics for pneumonia. Neurology consulted for ALS. Prognosis poor 03/01/2020; patient is intubated and on CPAP, patient is alert and oriented. I spoke with his 2 sisters about the management plan. 03/02/2020; patient is intubated and on CPAP. Patient was alert and oriented. I spoke with Dr. mohr and he thinks patient may need mechanical ventilation, likely his disease progressed. Dr. Flowers did debridement this morning. 03/03/2020; patient is intubated and on CPAP, patient was on trilogy and BiPAP at home. Patient has ALS. on spontaneous breathing trial. Patient is alert and oriented but quadriplegic. Patient has severe bilateral pneumonia and is on cefepime and Vanco, ID is following. Patient has sacral decubitus ulcer and debridement was done by Dr. Flowers and there is no osteomyelitis. 03/05. Patient still on broad-spectrum antibiotics. Status post sacral decubitus ulcer debridements-no osteomyelitis. Patient is on AC 25/400/30% PEEP 5. No blood gas results today. 03/06. Plan for tracheostomy by surgery. Still remains intubated. Labs reviewed-sodium 150. Started on free water 200 every 8hr. trend sodium. 03/07: s/p trach placement today, patient placed back on mechanical ventilation with trach. Plan to resume tube feeding with NG tube. Continue to monitor vitals, monitor BMP. 03/08: Patient noted to have distended abdomen with low urinary output. Obtain bladder scan rule out urine retention, UA and urine culture, continue to follow clinically. 03/09: Patient noted to have low blood pressure with SBP as low as 70s. Ordered for 500 mils normal saline bolus. CT abdomen showed bladder outlet obstruction, urology consulted. 03/10: placed on drake by urology o/n, improved urine outpt. cont to monitor BMP. resuded TF - cont free water with TF. wean off from vent as tolerated. 03/11: Vitals stable. cont TF, wean off from vent as tolerated. start on 1/2 NS for hypernatremia - follow BMP 03/12: wean off vent as tolerated, plan for speech eval, cont Tf for now, cont iv fluid 03/13: unable to wean off from vent, unable to do speech therapy eval. will need PEG tube, cont supportive care for now, cont NG tube feeding 03/14: consulted GI for PEg placemnet, cont supportive care. remains on vent at night 03/15: Discussed with GI, plan for PEG tube placement possibly tomorrow. Continue supportive care and wean off from vent as tolerated. Hold Lovenox dose tonight. 03/16: family didnot consent for PEG placement yesterday. I spoke with the daughter today and she is now agreeable for PEG tube. I explained the necessity of the procedure with RN to the patient also and he nodded started on tube feeding, for the procedure. will cont supportive care. planned for PEG tube placement tomorrow. 03/17: s/p PEG placement today, patient tolerated well, cont supportive care 03/18: Started on tube feeding with new PEG tube, continue to wean off vent as tolerated 03/19: cont to monitor with supportive care, wean off vent as tolerated 03/20: Continue to wean off vent as tolerated -but failing weaning trial. Still requiring vent support at night. Currently on PEG tube for tube feed. 03/21. Pt with PSV trials with FiO@ 30%, PEEP 6, PS 10. Currently on PEG tube for tube feed. 03/22/2020. Continue PSV trials per pulmonary. Continue bronchodilators. Patient tolerating tube feedings. Continue Robinul for secretion control. 03/23/2020. Continue PSV trials per pulmonary. Continue bronchodilators. Continue Scopolamine and Robinul for secretion control. Trach care/airway management. Mobility protocols for pressure ulcer prophylaxis. LTAC evaluation per case management 03/24/2020. Continue PSV trials with current settings pressure support 10, PEEP 6 and FiO2 30%. Continue bronchodilators/nebulizer. Continue Scopolamine and Robinul for secretion control. Trach care/airway management. Mobility protocols for pressure ulcer prophylaxis. LTAC evaluation per case management 03/25/2020. Pulmonary to proceed with T-piece trials today. Continue bronchodilators/nebulizer. Continue Scopolamine and Robinul for secretion control. Trach care/airway management. Mobility protocols for pressure ulcer prophylaxis. 03/26/2020. Patient currently with PSV 10/6 at FiO2 of 30%. Continue weaning and T-piece trials per protocol. Continue bronchodilators/nebulizer. Continue Scopolamine and Robinul for secretion control. Trach care/airway management. Mobility protocols for pressure ulcer prophylaxis. Continue tube feeding with aspiration precautions. 03/27/2020. Patient currently with PSV 10/6 at FiO2 of 30%. Continue weaning and T-piece trials per protocol. Continue bronchodilators/nebulizer. Continue Scopolamine and Robinul for secretion control. Trach care/airway management. Mobility protocols for pressure ulcer prophylaxis. Continue tube feeding with aspiration precautions. 03/28. Had temp 100.7F. He has been off antibiotics. Will send blood culture, ua, urine culture and chest xray. Had chest pain overnight and trop was elevated as well. Cardiology to evaluate 03/29. Has back pain due to position. He mentions his chest pain is positional. Has no other complaints. Still on mechanical ventilation The high probability of a clinically significant, sudden or life threatening deterioration of the [cardiac and respiratory] system(s) required my full and direct attention, intervention and personal management. The aggregate critical care time was [32] minutes. This time is in addition to time spent performing reported procedures but includes the following: [x] Data Review and interpretation [x] Patient assessment and monitoring of vital signs [x] Documentation [x] Medication orders and management Assessment and Plan --Acute hypoxic hypercapnic respiratory failure; Intubated on mechanical ventilation. Etiology secondary to sepsis, ALS, multifocal pneumonia (Covid negative). --ALS - Stable --Elevated D-dimers; CTA chest, lower extremity venous Doppler both are negative Lovenox DVT prophylaxis --Bilateral pneumonia; probably community-acquired Resolved --Sepsis secondary to pneumonia Resolved ---Fever - BC pending --DVT prophylaxis; Lovenox History Interval history: Patient seen and examined at bedside Intubated Awake on vent Hospitalist Physical - Physical exam Narrative exam: VITAL SIGNS: Reviewed. GENERAL: Awake. Intubated HEAD: No signs of head trauma. EYES: Pupils are equal. Extraocular motions intact. EARS: Hearing grossly intact. MOUTH: Oropharynx is normal. NECK: No adenopathy, no JVD. CHEST: Coarse breath sounds bilaterally CARDIAC: Regular rate and rhythm. S1 and S2, without murmurs, gallops, or rubs. VASCULAR: No Edema. Peripheral pulses normal and equal in all extremities. ABDOMEN: Soft, non tender and non distended. No rebound or guarding, and no masses palpated. Bowel Sounds normal. NEUROLOGIC EXAM: Awake SKIN: No obvious lesions - Constitutional Vitals: Temp Pulse Resp BP Pulse Ox 98.4 F 118 H 27 H 115/78 100 03/29/20 08:00 03/29/20 13:40 03/29/20 14:12 03/29/20 13:40 03/29/20 13:40 HEART Score - HEART Score Troponin: Troponin T 0.090 ng/mL (0.00-0.029) H 03/28/20 17:17 Results - Labs CBC & Chem 7: 03/28/20 10:28 03/28/20 10:28 Labs: Laboratory Last Values WBC 23.6 K/mm3 (4.5-11.0) H 03/28/20 10:28 RBC 3.62 M/mm3 (3.65-5.03) L 03/28/20 10:28 Hgb 10.0 gm/dl (11.8-15.2) L 03/28/20 10:28 Hct 30.8 % (35.5-45.6) L 03/28/20 10:28 MCV 85 fl (84-94) 03/28/20 10:28 MCH 28 pg (28-32) 03/28/20 10:28 MCHC 32 % (32-34) 03/28/20 10:28 RDW 16.4 % (13.2-15.2) H 03/28/20 10:28 Plt Count 378 K/mm3 (140-440) 03/28/20 10:28 Lymph % (Auto) 8.0 % (13.4-35.0) L 03/27/20 05:59 [place] % (Auto) 6.3 % (0.0-7.3) 03/27/20 05:59 Eos % (Auto) 0.6 % (0.0-4.3) 03/27/20 05:59 Baso % (Auto) 0.4 % (0.0-1.8) 03/27/20 05:59 Lymph # (Auto) 1.5 K/mm3 (1.2-5.4) 03/27/20 05:59 [place] # (Auto) 1.2 K/mm3 (0.0-0.8) H 03/27/20 05:59 Eos # (Auto) 0.1 K/mm3 (0.0-0.4) 03/27/20 05:59 Baso # (Auto) 0.1 K/mm3 (0.0-0.1) 03/27/20 05:59 Add Manual Diff Complete 03/28/20 10:28 Total Counted 100 03/28/20 10:28 Seg Neutrophils % 84.7 % (40.0-70.0) H 03/27/20 05:59 Seg Neuts % (Manual) 89.0 % (40.0-70.0) H 03/28/20 10:28 Band Neutrophils % 0 % 03/28/20 10:28 Lymphocytes % (Manual) 5.0 % (13.4-35.0) L 03/28/20 10:28 Reactive Lymphs % (Man) 0 % 03/28/20 10:28 Monocytes % (Manual) 5.0 % (0.0-7.3) 03/28/20 10:28 Eosinophils % (Manual) 0 % (0.0-4.3) 03/28/20 10:28 Basophils % (Manual) 1.0 % (0.0-1.8) 03/28/20 10:28 Metamyelocytes % 0 % 03/28/20 10:28 Myelocytes % 0 % 03/28/20 10:28 Promyelocytes % 0 % 03/28/20 10:28 Blast Cells % 0 % 03/28/20 10:28 Nucleated RBC % Not Reportable 03/28/20 10:28 Seg Neutrophils # 15.8 K/mm3 (1.8-7.7) H 03/27/20 05:59 Seg Neutrophils # Man 21.0 K/mm3 (1.8-7.7) H 03/28/20 10:28 Band Neutrophils # 0.0 K/mm3 03/28/20 10:28 Lymphocytes # (Manual) 1.2 K/mm3 (1.2-5.4) 03/28/20 10:28 Abs React Lymphs (Man) 0.0 K/mm3 03/28/20 10:28 Monocytes # (Manual) 1.2 K/mm3 (0.0-0.8) H 03/28/20 10:28 Eosinophils # (Manual) 0.0 K/mm3 (0.0-0.4) 03/28/20 10:28 Basophils # (Manual) 0.2 K/mm3 (0.0-0.1) H 03/28/20 10:28 Metamyelocytes # 0.0 K/mm3 03/28/20 10:28 Myelocytes # 0.0 K/mm3 03/28/20 10:28 Promyelocytes # 0.0 K/mm3 03/28/20 10:28 Blast Cells # 0.0 K/mm3 03/28/20 10:28 WBC Morphology Not Reportable 03/28/20 10:28 Hypersegmented Neuts Not Reportable 03/28/20 10:28 Hyposegmented Neuts Not Reportable 03/28/20 10:28 Hypogranular Neuts Not Reportable 03/28/20 10:28 Smudge Cells Not Reportable 03/28/20 10:28 Toxic Granulation 1+ 03/28/20 10:28 Toxic Vacuolation Not Reportable 03/28/20 10:28 Dohle Bodies Not Reportable 03/28/20 10:28 Pelger-Huet Anomaly Not Reportable 03/28/20 10:28 Orbert Rods Not Reportable 03/28/20 10:28 Platelet Estimate Consistent w auto 03/28/20 10:28 Clumped Platelets Not Reportable 03/28/20 10:28 Plt Clumps, EDTA Not Reportable 03/28/20 10:28 Large Platelets Not Reportable 03/28/20 10:28 Giant Platelets Not Reportable 03/28/20 10:28 Platelet Satelliting Not Reportable 03/28/20 10:28 Plt Morphology Comment Not Reportable 03/28/20 10:28 RBC Morphology Not Reportable 03/28/20 10:28 Dimorphic RBCs Not Reportable 03/28/20 10:28 Polychromasia Not Reportable 03/28/20 10:28 Hypochromasia Not Reportable 03/28/20 10:28 Poikilocytosis Not Reportable 03/28/20 10:28 Anisocytosis 1+ 03/28/20 10:28 Microcytosis Not Reportable 03/28/20 10:28 Macrocytosis Not Reportable 03/28/20 10:28 Spherocytes Not Reportable 03/28/20 10:28 Pappenheimer Bodies Not Reportable 03/28/20 10:28 Sickle Cells Not Reportable 03/28/20 10:28 Target Cells Not Reportable 03/28/20 10:28 Tear Drop Cells Not Reportable 03/28/20 10:28 Ovalocytes Not Reportable 03/28/20 10:28 Stomatocytes Few 03/17/20 04:40 Helmet Cells Not Reportable 03/28/20 10:28 [place] Bodies Not Reportable 03/28/20 10:28 [place] Rings Not Reportable 03/28/20 10:28 [place] Cells Not Reportable 03/28/20 10:28 Bite Cells Not Reportable 03/28/20 10:28 Crenated Cell Not Reportable 03/28/20 10:28 Elliptocytes Not Reportable 03/28/20 10:28 Acanthocytes (Spur) Not Reportable 03/28/20 10:28 Rouleaux Not Reportable 03/28/20 10:28 Hemoglobin C Crystals Not Reportable 03/28/20 10:28 Schistocytes Not Reportable 03/28/20 10:28 Malaria parasites Not Reportable 03/28/20 10:28 [place] Bodies Not Reportable 03/28/20 10:28 Hem Pathologist Commnt No 03/28/20 10:28 PT 15.6 Sec. (12.2-14.9) H 02/24/20 09:19 INR 1.21 (0.87-1.13) H 02/24/20 09:19 APTT 25.4 Sec. (24.2-36.6) 02/24/20 09:19 D-Dimer 1311.96 ng/mlDDU (0-234) H 02/24/20 09:19 ABG pH 7.371 (7.320-7.450) 03/08/20 12:34 POC ABG pCO2 63.1 mmHg (32.0-48.0) H 03/08/20 12:34 ABG pCO2 60.1 mm Hg 03/06/20 04:34 POC ABG pO2 90.5 mmHg (83-108) 03/08/20 12:34 ABG pO2 88.6 mm Hg (80.0-90.0) 03/06/20 04:34 POC ABG HCO3 35.7 03/08/20 12:34 ABG HCO3 37.9 mmol/L (20.0-26.0) H 03/06/20 04:34 ABG O2 Saturation 97.0 % (95.0-99.0) 03/06/20 04:34 ABG O2 Content 14.3 (0.0-44) 03/06/20 04:34 POC ABG Base Excess 8.7 03/08/20 12:34 ABG Base Excess 11.4 mmol/L (-2.0-3.0) H 03/06/20 04:34 ABG Hemoglobin 10.9 (12.0-17.5) L 03/08/20 12:34 ABG Oxyhemoglobin 95.9 (94-98) 03/08/20 12:34 ABG Carboxyhemoglobin 1.7 % (0.0-5.0) 03/06/20 04:34 ABG Methemoglobin 0.3 (0.0-1.5) 03/08/20 12:34 ABG Sodium 143.6 mmol/L (136.0-145.0) 03/08/20 12:34 ABG Potassium 3.8 mmol/L (3.40-4.50) 03/08/20 12:34 ABG Chloride 102.0 mmol/L (98-107) 03/08/20 12:34 ABG Glucose 176 mg/dL (65-95) H 03/08/20 12:34 Oxyhemoglobin 94.7 % (95.0-99.0) L 03/06/20 04:34 Carboxyhemoglobin 0.7 (0.5-1.5) 03/08/20 12:34 FiO2 30 03/08/20 12:34 Sodium 134 mmol/L (137-145) L 03/28/20 10:28 Potassium 4.4 mmol/L (3.6-5.0) 03/28/20 10:28 Chloride 94.2 mmol/L (98-107) L 03/28/20 10:28 Carbon Dioxide 35 mmol/L (22-30) H 03/28/20 10:28 Anion Gap 9 mmol/L 03/28/20 10:28 BUN 17 mg/dL (9-20) 03/28/20 10:28 Creatinine < 0.2 mg/dL (0.8-1.3) L 03/28/20 10:28 Estimated GFR > 60 ml/min 03/28/20 10:28 BUN/Creatinine Ratio 85 % 03/28/20 10:28 Glucose 134 mg/dL (75-100) H 03/28/20 10:28 POC Glucose 133 mg/dL (70-105) H 03/29/20 10:58 Lactic Acid 1.00 mmol/L (0.7-2.0) 02/24/20 12:07 Calcium 8.8 mg/dL (8.4-10.2) 03/28/20 10:28 Phosphorus 3.30 mg/dL (2.5-4.5) 03/29/20 14:35 Magnesium 2.00 mg/dL (1.7-2.3) 03/29/20 14:35 Ferritin 1715.0 ng/mL (30.0-300.0) H 02/24/20 10:01 Total Bilirubin 0.60 mg/dL (0.1-1.2) 03/08/20 06:43 AST 34 units/L (5-40) 03/08/20 06:43 ALT 14 units/L (7-56) 03/08/20 06:43 Alkaline Phosphatase 56 units/L (35-129) 03/08/20 06:43 Lactate Dehydrogenase 303 units/L (91-180) H 02/24/20 09:19 Total Creatine Kinase 47 units/L (55-170) L 03/28/20 17:17 CK-MB (CK-2) 2.2 ng/mL (0.0-4.0) 03/28/20 17:17 CK-MB (CK-2) Rel Index 4.6 (0-4) H 03/28/20 17:17 Troponin T 0.090 ng/mL (0.00-0.029) H 03/28/20 17:17 C-Reactive Protein 4.70 mg/dL (0.00-1.30) H 02/28/20 11:05 NT-Pro-B Natriuret Pep 48.30 pg/mL (0-900) 02/24/20 09:19 Total Protein 5.9 g/dL (6.3-8.2) L 03/08/20 06:43 Albumin 3.2 g/dL (3.9-5) L 03/08/20 06:43 Albumin/Globulin Ratio 1.2 % 03/08/20 06:43 Prealbumin 0.090 g/L (0.200-0.400) L 02/28/20 12:54 Triglycerides 34 mg/dL (2-149) 03/22/20 18:00 Cholesterol 104 mg/dL (50-199) 03/22/20 18:00 LDL Cholesterol Direct 54 mg/dL (50-130) 03/22/20 18:00 HDL Cholesterol 40 mg/dL (40-59) 03/22/20 18:00 Cholesterol/HDL Ratio 2.60 % 03/22/20 18:00 Procalcitonin < 0.05 ng/mL (<0.15) 03/28/20 17:12 Arterial Blood Glucose 176 mg/dL (65-95) H 03/08/20 12:34 Arterial Blood Ionized Calcium 4.5 mg/dL (4.6-5.3) L 03/08/20 12:34 Urine Color Yellow (Yellow) 03/28/20 11:36 Urine Turbidity Hazy (Clear) 03/28/20 11:36 Urine pH 5.0 (5.0-7.0) 03/28/20 11:36 Ur Specific [place] 1.026 (1.003-1.030) 03/28/20 11:36 Urine Protein 100 mg/dl mg/dL (Negative) 03/28/20 11:36 Urine Glucose (UA) Neg mg/dL (Negative) 03/28/20 11:36 Urine Ketones Neg mg/dL (Negative) 03/28/20 11:36 Urine Blood Neg (Negative) 03/28/20 11:36 Urine Nitrite Neg (Negative) 03/28/20 11:36 Urine Bilirubin Neg (Negative) 03/28/20 11:36 Urine Urobilinogen 4.0 mg/dL (<2.0) 03/28/20 11:36 Ur Leukocyte Esterase Mod (Negative) 03/28/20 11:36 Urine WBC (Auto) 39.0 /HPF (0.0-6.0) H 03/28/20 11:36 Urine RBC (Auto) 16.0 /HPF (0.0-6.0) 03/28/20 11:36 U Epithel Cells (Auto) < 1.0 /HPF (0-13.0) 03/08/20 08:57 Urine Bacteria (Auto) 2+ /HPF (Negative) 03/28/20 11:36 Urine Mucus 3+ /HPF 03/28/20 11:36 Urine Yeast (Budding) 2+ /HPF 03/28/20 11:36 Vancomycin Trough 8.0 ug/mL (5.0-20.0) 03/04/20 08:59 Coronavirus (PCR) Negative (Negative) 02/25/20 09:03 Microbiology: Microbiology 03/28/20 11:36 Urine,Clean Catch Urine Culture - Preliminary 03/28/20 17:12 Peripheral/Venous Blood Culture - Preliminary Culture in Progress 03/28/20 17:12 Peripheral/Venous Blood Culture - Preliminary Culture in Progress - Diagnostic Impressions Diagnostic Impressions: Echocardiogram 02/26/20 10:41 Transthoracic Echocardiogram Indication: Elevated Trop BP: 116/75 HR: 85 Conclusions *Global left ventricular wall motion and contractility are within normal limits. *The estimated ejection fraction is 50-55%. *Abnormal left ventricular diastolic filling is observed, consistent with impaired relaxation. *There is no pericardial effusion. Findings Left Ventricle: The left ventricular chamber size is normal. Global left ventricular wall motion and contractility are within normal limits. Global left ventricular systolic function is normal. The estimated ejection fraction is 50-55%. Abnormal left ventricular diastolic filling is observed, consistent with impaired relaxation. Left Atrium: The left atrial chamber size is normal. Right Ventricle: The right ventricular cavity size is normal. Right Atrium: The right atrial cavity size is normal. Aortic Valve: Mild aortic leaflet calcification is visualized. There is no evidence of aortic regurgitation. Mitral Valve: The mitral valve leaflets are mildly thickened. There is no evidence of mitral regurgitation. Tricuspid Valve: The tricuspid valve leaflets are normal. There is trace tricuspid regurgitation. The right ventricular systolic pressure is calculated at 29 mmHg. Pulmonic Valve: The pulmonic valve is not well visualized. Pericardium: There is no pericardial effusion. Aorta: The aorta appears normal. Venous: The inferior vena cava is dilated. There is less than 50% respiratory change in the inferior vena cava dimension. Measurements Chambers 2D Name Value Normal Range IVSd (2D) 0.97 cm (0.6 - 1.1) LVPWd (2D) 0.93 cm (0.6 - 1.1) LVIDd (2D) 4 cm (3.7 - 5.6) LVIDs (2D) 2.73 cm (2 - 3.8) LV FS (2D) 31.67 % - EF Teichholz (2D) 60.23 % - Ao root diameter (2D) 3.51 cm (2 - 3.7) Volumes/Mass Name Value Normal Range LA ESV SP 4CH (A/L) 8.43 ml - LA ESV SP 2CH (A/L) 18.89 ml - LA ESV BP (A/L) 13.02 ml - LA ESV BP (A/L) index 8.8 ml/m2 - LA ESV SP 4CH (MOD) 7.22 ml - LA ESV SP 2CH (MOD) 18.15 ml - LA ESV BP (MOD) 11.47 ml - LA ESV BP (MOD) index 7.75 ml/m2 - Diastolic/Systolic Function Name Value Normal Range MV E-wave Vmax 0.51 m/sec - MV deceleration time 180.22 msec - MV A-wave Vmax 0.62 m/sec - MV E:A ratio 0.82 ratio - Aortic Valve Name Value Normal Range AV Vmax 1.17 m/sec - AV VTI 19.71 cm - AV peak gradient 5.44 mmHg - AV mean gradient 3.38 mmHg - LVOT diameter 2.26 cm - LVOT Vmax 0.89 m/sec - LVOT VTI 13.72 cm - LVOT peak gradient 3.17 mmHg - LVOT mean gradient 1.67 mmHg - SV LVOT 55.03 ml - SHARAD (continuity Vmax) 3.06 cm2 - SHARAD (continuity VTI) 2.79 cm2 - Tricuspid Valve Name Value Normal Range TR Vmax 2.3 m/sec - TR peak gradient 21 mmHg - RAP 8 mmHg - RVSP 29 mmHg - IVC diameter 2.59 cm (1.2 - 2.3) Pulmonic Valve/Qp:Qs Name Value Normal Range PV acceleration time 68.51 msec - Drake/IV: Voiding Method Indwelling Catheter IV Catheter Type [Left Hand] Peripheral IV IV Catheter Type [Right Hand] Peripheral IV IV Catheter Type [Left Wrist] Peripheral IV IV Catheter Type [Right Peripheral IV Forearm] IV Catheter Type [Right Triple Lumen Cath Internal Jugular] IV Catheter Type [Left Forearm INT / Saline Lock ] IV Catheter Type [Right Triple Lumen Cath Femoral] IV Catheter Type [Right INT / Saline Lock Antecubital] Active Medications - Current Medications Current Medications: Generic Name Dose Route Start Last Admin Trade Name Freq PRN Reason Stop Dose Admin Acetaminophen 650 mg 02/24/20 15:13 03/08/20 00:10 Tylenol PO 650 mg Q4H PRN Administration Pain, Mild (1-3) Albuterol 2.5 mg 02/24/20 15:13 Proventil IH Q4HRT PRN Shortness Of Breath Lipase/Protease/Amylase 1 each 02/26/20 11:[address] 10,500 Unit FEEDTUBE PRN PRN For Clogged Feeding Tube Bisacodyl 10 mg 03/12/20 18:00 03/15/20 17:50 Dulcolax AL 10 mg QDAY PRN Administration Bowel Movement Enoxaparin Sodium 40 mg 03/20/20 22:00 03/28/20 21:13 Enoxaparin SUB-Q 40 mg QDAY@2200 ALISA Administration Protocol Glycopyrrolate 2 mg 03/26/20 08:00 03/29/20 13:37 Robinul PO 2 mg TID ALISA Administration Lansoprazole 30 mg 02/28/20 10:00 03/29/20 09:08 Prevacid Solutab FEEDTUBE 30 mg QDAY ALISA Administration Metoprolol Tartrate 12.5 mg 02/24/20 22:00 03/29/20 09:08 Metoprolol PO 12.5 mg BID ALISA Administration Morphine Sulfate 2 mg 02/29/20 16:42 03/29/20 14:12 Morphine IV 2 mg Q4H PRN Administration Pain, Moderate (4-6) Scopolamine 1 each 03/03/20 14:00 03/27/20 10:12 Transderm-Scop TD 1 each Q3D ALISA Administration Simple Syrup 15 ml 02/26/20 11:16 Simple Syrup FEEDTUBE PRN PRN Hypoglycemia Simple Syrup 30 ml 02/26/20 11:16 Simple Syrup FEEDTUBE PRN PRN Hypoglycemia Sodium Bicarbonate 325 mg 02/26/20 11:16 Sodium Bicarbonate FEEDTUBE PRN PRN For Clogged Feeding Tube Tamsulosin HCl 0.4 mg 03/09/20 18:00 03/29/20 09:08 Flomax PO 0.4 mg QDAY ALISA Administration Zolpidem Tartrate 5 mg 03/24/20 14:53 03/28/20 22:07 Ambien PO 5 mg QHS PRN Administration Sleep Nutrition/Malnutrition Assess - Dietary Evaluation Nutrition/Malnutrition Findings: Nutrition Notes Start: 02/26/20 10:40 Freq: Status: Active Protocol: Document 03/28/20 11:24 EN (Rec: 03/28/20 11:50 EN [id number]) Co-Sign 03/28/20 11:24 NHALL Nutrition Notes Initial or Follow up Reassessment Current Diagnosis Decubitus(Pressure Ulcer), Sepsis,Respiratory Failure Other Pertinent Diagnosis COVID-19 (-), ALS, pneumonia, Hip/buttock PU Current Diet Vital AF 1.2 at 75ml/hr (goal rate) Labs/Tests Reviewed Pertinent Medications Reviewed Height 6 ft Weight 66 kg [place] Body Weight (kg) 80.90 BMI 19.7 Weight Status Appropriate Subjective/Other Information Pt continues tolerating TF at goal rate. Percent of energy/protein needs met: 100%/100% Burn Absent Trauma Absent GI Symptoms None Skin Integrity/Comment Pressure Ulcer Stage 2 Current % PO Negligible Minimum of two criteria Yes Body Fat Depletion Mild depletion (non-severe) Muscle Mass Mild Depletion (non-severe) Reduced [employer] Strength Measurably Reduced (severe) #3 Nutrition Diagnosis Malnutrition Diagnosis Progress(for reassessment Continues documentation) #2 Nutrition Diagnosis Inadequate oral intake Diagnosis Progress(for reassessment Continues documentation) #1 Nutrition Diagnosis Increased nutrient needs ( specify in comment below) Diagnosis Progress(for reassessment Continues documentation) Is patient on ventilator? Yes Is Patient Ambulatory and/or Out of Bed No REE-([place]-confined to bed) 1820.472 Kcal/Kg value to use for calculation 35 Approximate Energy Requirements Using 2310 kcal/Kg Calculation Used for Recommendations Kcal/kg Additional Notes Protein needs: 88-147 g (1.2-2 g/ kg ABW) Fluid: 1ml/kcal Nutrition Intervention Change Diet Order: Continue TF Nutrition Support: Vital AF 1.2 at 75ml/hr. Flush 200ml q4h For hyponatremia, flush 150 mL q4h Kcal 2,160 Protein (gm) 135 Fluid (mL) 1,460 Add Supplement/Snack (indicate name/kcal Will BID /protein ) Provides kCal: 190 Provides Protein (gm) 5 Goal #1 Meet at least 80% of energy and protein needs via TF Goal #2 Wound healing Anticipated Discharge Needs: Unable to determine at this time Follow-Up By: 04/04/20 Additional Comments Follow for stable TF
[2020-03-29] MEDS ORDERED: LIDOCAINE 5% OINTMENT 35 GM TP ONE (16:25)
[2020-03-29] MEDS: ENOXAPARIN 40 MG/0.4 ML INJ SUB-Q SCH (21:48)
[2020-03-30] MEDS: MORPHINE 2 MG/1 ML INJ IV PRN ×4 (06:29→21:19)
[2020-03-30] MEDS: GLYCOPYRROLATE 1 MG TAB PO SCH ×3 (07:46→21:18)
[2020-03-30] MEDS: SCOPOLAMINE TRANSDERMAL PATCH 72 HR TD SCH (09:15)
[2020-03-30] MEDS: TAMSULOSIN 0.4 MG CAP PO SCH (09:15)
[2020-03-30] MEDS: LANSOPRAZOLE 30 MG SOLUTAB FEEDTUBE SCH (09:15)
[2020-03-30] MEDS: METOPROLOL TARTRATE 25 MG TAB PO SCH ×2 (09:15→21:19)
--- NOTE | 2020-03-30 13:23 | Progress Note ---
Assessment and Plan Assessment and plan: 59-year-old male patient with significant past medical history of ALS, presented to ED with worsening shortness of breath since the morning [employer]. Patient was on a trilogy machine for breathing 18/11. EMS arrived, patient had O2 sats in the 80s. EMS attempted to place patient on their CPAP machine, hill john patient did not tolerate. Patient was admitted to the ICU with diagnosis of acute hypoxic respiratory failure and placed on BiPAP. Patient initially tolerated but later deteriorated with respiratory status. CTA chest showed no PE but significant for bilateral pneumonia. Doppler ultrasound also negative for DVT. COVID-19 test ordered. Due to persistent hypoxia, patient was intubated on 02/26/2020 at 1500. Patient now on mechanical ventilation in the ICU. 02/26/2020. Blood cultures are negative x48 hours and Covid testing negative as well. Continue antibiotics per ID recommendations for community-acquired bilateral pneumonia. Cardiology consultation for elevated troponin. Check echocardiogram. 02/27/2020. Events of yesterday noted with asystole following V. fib arrest. Patient currently on AC mode rate 20, tidal volume 400, FiO2 50% and a PEEP of 6. Follow-up echocardiogram for elevated troponin. Cardiology suspects NSTEMI Type 2 in the setting of acute resp failure. Chest CTA and BLE Dopplers neg. we will discontinue Decadron given the Covid PCR is negative. 02/25/2020. CTA of the chest reveals no PE but does illustrate the bilateral pneumonia. Doppler ultrasound also negative for DVT. Blood cultures are pending. Await COVID-19 testing. Patient currently requiring BiPAP IPAP 24/EPAP 6 with FiO2 of 25%. Continue O2 and BiPAP as clinically indicated. ID and pulmonary consulted. 02/26/2020. Blood cultures are negative x48 hours and Covid testing negative as well. Continue antibiotics per ID recommendations for community-acquired bilateral pneumonia. Cardiology consultation for elevated troponin. Check echocardiogram. 02/27/2020. Events of yesterday noted with asystole following V. fib arrest. Patient currently on AC mode rate 20, tidal volume 400, FiO2 50% and a PEEP of 6. Follow-up echocardiogram for elevated troponin. Cardiology suspects NSTEMI Type 2 in the setting of acute resp failure. Chest CTA and BLE Dopplers neg. we will discontinue Decadron given the Covid PCR is negative. 02/28/2020. I spoke with the sister Felisa Eli who is the power of finance attorney regarding advanced directives and she instructed me that she would like to continue with aggressive care at this time. I informed her of the guarded prognosis and high mortality/morbidity and she voiced understanding. Patient currently with AC mode ventilation rate 18, tidal volume 400, FiO2 40% and a PEEP of 6. Continue antibiotics for pneumonia. ID previously consulted. Also consult neurology with regards to ALS. 02/29/2020; patient is intubated and on CPAP patient is alert and oriented. Patient has ALS. Dr. Álvarez spoke with his sister and she wants aggressive care. Continue antibiotics for pneumonia. Neurology consulted for ALS. Prognosis poor 03/01/2020; patient is intubated and on CPAP, patient is alert and oriented. I spoke with his 2 sisters about the management plan. 03/02/2020; patient is intubated and on CPAP. Patient was alert and oriented. I spoke with Dr. mohr and he thinks patient may need mechanical ventilation, likely his disease progressed. Dr. Flowers did debridement this morning. 03/03/2020; patient is intubated and on CPAP, patient was on trilogy and BiPAP at home. Patient has ALS. on spontaneous breathing trial. Patient is alert and oriented but quadriplegic. Patient has severe bilateral pneumonia and is on cefepime and Vanco, ID is following. Patient has sacral decubitus ulcer and debridement was done by Dr. Flowers and there is no osteomyelitis. 03/05. Patient still on broad-spectrum antibiotics. Status post sacral decubitus ulcer debridements-no osteomyelitis. Patient is on AC 25/400/30% PEEP 5. No blood gas results today. 03/06. Plan for tracheostomy by surgery. Still remains intubated. Labs reviewed-sodium 150. Started on free water 200 every 8hr. trend sodium. 03/07: s/p trach placement today, patient placed back on mechanical ventilation with trach. Plan to resume tube feeding with NG tube. Continue to monitor vitals, monitor BMP. 03/08: Patient noted to have distended abdomen with low urinary output. Obtain bladder scan rule out urine retention, UA and urine culture, continue to follow clinically. 03/09: Patient noted to have low blood pressure with SBP as low as 70s. Ordered for 500 mils normal saline bolus. CT abdomen showed bladder outlet obstruction, urology consulted. 03/10: placed on drake by urology o/n, improved urine outpt. cont to monitor BMP. resuded TF - cont free water with TF. wean off from vent as tolerated. 03/11: Vitals stable. cont TF, wean off from vent as tolerated. start on 1/2 NS for hypernatremia - follow BMP 03/12: wean off vent as tolerated, plan for speech eval, cont Tf for now, cont iv fluid 03/13: unable to wean off from vent, unable to do speech therapy eval. will need PEG tube, cont supportive care for now, cont NG tube feeding 03/14: consulted GI for PEg placemnet, cont supportive care. remains on vent at night 03/15: Discussed with GI, plan for PEG tube placement possibly tomorrow. Continue supportive care and wean off from vent as tolerated. Hold Lovenox dose tonight. 03/16: family didnot consent for PEG placement yesterday. I spoke with the daughter today and she is now agreeable for PEG tube. I explained the necessity of the procedure with RN to the patient also and he nodded started on tube feeding, for the procedure. will cont supportive care. planned for PEG tube placement tomorrow. 03/17: s/p PEG placement today, patient tolerated well, cont supportive care 03/18: Started on tube feeding with new PEG tube, continue to wean off vent as tolerated 03/19: cont to monitor with supportive care, wean off vent as tolerated 03/20: Continue to wean off vent as tolerated -but failing weaning trial. Still requiring vent support at night. Currently on PEG tube for tube feed. 03/21. Pt with PSV trials with FiO@ 30%, PEEP 6, PS 10. Currently on PEG tube for tube feed. 03/22/2020. Continue PSV trials per pulmonary. Continue bronchodilators. Patient tolerating tube feedings. Continue Robinul for secretion control. 03/23/2020. Continue PSV trials per pulmonary. Continue bronchodilators. Continue Scopolamine and Robinul for secretion control. Trach care/airway management. Mobility protocols for pressure ulcer prophylaxis. LTAC evaluation per case management 03/24/2020. Continue PSV trials with current settings pressure support 10, PEEP 6 and FiO2 30%. Continue bronchodilators/nebulizer. Continue Scopolamine and Robinul for secretion control. Trach care/airway management. Mobility protocols for pressure ulcer prophylaxis. LTAC evaluation per case management 03/25/2020. Pulmonary to proceed with T-piece trials today. Continue bronchodilators/nebulizer. Continue Scopolamine and Robinul for secretion control. Trach care/airway management. Mobility protocols for pressure ulcer prophylaxis. 03/26/2020. Patient currently with PSV 10/6 at FiO2 of 30%. Continue weaning and T-piece trials per protocol. Continue bronchodilators/nebulizer. Continue Scopolamine and Robinul for secretion control. Trach care/airway management. Mobility protocols for pressure ulcer prophylaxis. Continue tube feeding with aspiration precautions. 03/27/2020. Patient currently with PSV 10/6 at FiO2 of 30%. Continue weaning and T-piece trials per protocol. Continue bronchodilators/nebulizer. Continue Scopolamine and Robinul for secretion control. Trach care/airway management. Mobility protocols for pressure ulcer prophylaxis. Continue tube feeding with aspiration precautions. 03/28. Had temp 100.7F. He has been off antibiotics. Will send blood culture, ua, urine culture and chest xray. Had chest pain overnight and trop was elevated as well. Cardiology to evaluate 03/29. Has back pain due to position. He mentions his chest pain is positional. Has no other complaints. Still on mechanical ventilation 03/30. No chest pain today. Labs reviewed. Discussed chest pain with cardiology and team advised no further work up at this time. Can follow up with cardiology in the office after hospitalization The high probability of a clinically significant, sudden or life threatening deterioration of the [cardiac and respiratory] system(s) required my full and direct attention, intervention and personal management. The aggregate critical care time was [32] minutes. This time is in addition to time spent performing reported procedures but includes the following: [x] Data Review and interpretation [x] Patient assessment and monitoring of vital signs [x] Documentation [x] Medication orders and management Assessment and Plan --Acute hypoxic hypercapnic respiratory failure; Trach to vent --ALS - Stable --Elevated D-dimers; CTA chest, lower extremity venous Doppler both are negative Lovenox DVT prophylaxis --Bilateral pneumonia; probably community-acquired Resolved --Sepsis secondary to pneumonia Resolved --Elevated troponin Likely type II MT Cardiology follow up at discharge ---Fever Resolved Complete antibiotics --DVT prophylaxis; Lovenox History Interval history: Patient seen and examined at bedside Intubated Awake on vent Hospitalist Physical - Physical exam Narrative exam: VITAL SIGNS: Reviewed. GENERAL: Awake. Intubated HEAD: No signs of head trauma. EYES: Pupils are equal. Extraocular motions intact. EARS: Hearing grossly intact. MOUTH: Oropharynx is normal. NECK: No adenopathy, no JVD. CHEST: Coarse breath sounds bilaterally CARDIAC: Regular rate and rhythm. S1 and S2, without murmurs, gallops, or rubs. VASCULAR: No Edema. Peripheral pulses normal and equal in all extremities. ABDOMEN: Soft, non tender and non distended. No rebound or guarding, and no masses palpated. Bowel Sounds normal. NEUROLOGIC EXAM: Awake SKIN: No obvious lesions - Constitutional Vitals: Temp Pulse Resp BP Pulse Ox 98.5 F 117 H 24 140/90 98 03/30/20 12:00 03/30/20 13:00 03/30/20 13:00 03/30/20 13:00 03/30/20 13:00 HEART Score - HEART Score Troponin: Troponin T 0.090 ng/mL (0.00-0.029) H 03/28/20 17:17 Results - Labs CBC & Chem 7: 03/30/20 14:47 03/30/20 14:47 Labs: Laboratory Last Values WBC 23.6 K/mm3 (4.5-11.0) H 03/28/20 10:28 RBC 3.62 M/mm3 (3.65-5.03) L 03/28/20 10:28 Hgb 10.0 gm/dl (11.8-15.2) L 03/28/20 10:28 Hct 30.8 % (35.5-45.6) L 03/28/20 10:28 MCV 85 fl (84-94) 03/28/20 10:28 MCH 28 pg (28-32) 03/28/20 10:28 MCHC 32 % (32-34) 03/28/20 10:28 RDW 16.4 % (13.2-15.2) H 03/28/20 10:28 Plt Count 378 K/mm3 (140-440) 03/28/20 10:28 Lymph % (Auto) 8.0 % (13.4-35.0) L 03/27/20 05:59 Bleckley % (Auto) 6.3 % (0.0-7.3) 03/27/20 05:59 Eos % (Auto) 0.6 % (0.0-4.3) 03/27/20 05:59 Baso % (Auto) 0.4 % (0.0-1.8) 03/27/20 05:59 Lymph # (Auto) 1.5 K/mm3 (1.2-5.4) 03/27/20 05:59 Bleckley # (Auto) 1.2 K/mm3 (0.0-0.8) H 03/27/20 05:59 Eos # (Auto) 0.1 K/mm3 (0.0-0.4) 03/27/20 05:59 Baso # (Auto) 0.1 K/mm3 (0.0-0.1) 03/27/20 05:59 Add Manual Diff Complete 03/28/20 10:28 Total Counted 100 03/28/20 10:28 Seg Neutrophils % 84.7 % (40.0-70.0) H 03/27/20 05:59 Seg Neuts % (Manual) 89.0 % (40.0-70.0) H 03/28/20 10:28 Band Neutrophils % 0 % 03/28/20 10:28 Lymphocytes % (Manual) 5.0 % (13.4-35.0) L 03/28/20 10:28 Reactive Lymphs % (Man) 0 % 03/28/20 10:28 Monocytes % (Manual) 5.0 % (0.0-7.3) 03/28/20 10:28 Eosinophils % (Manual) 0 % (0.0-4.3) 03/28/20 10:28 Basophils % (Manual) 1.0 % (0.0-1.8) 03/28/20 10:28 Metamyelocytes % 0 % 03/28/20 10:28 Myelocytes % 0 % 03/28/20 10:28 Promyelocytes % 0 % 03/28/20 10:28 Blast Cells % 0 % 03/28/20 10:28 Nucleated RBC % Not Reportable 03/28/20 10:28 Seg Neutrophils # 15.8 K/mm3 (1.8-7.7) H 03/27/20 05:59 Seg Neutrophils # Man 21.0 K/mm3 (1.8-7.7) H 03/28/20 10:28 Band Neutrophils # 0.0 K/mm3 03/28/20 10:28 Lymphocytes # (Manual) 1.2 K/mm3 (1.2-5.4) 03/28/20 10:28 Abs React Lymphs (Man) 0.0 K/mm3 03/28/20 10:28 Monocytes # (Manual) 1.2 K/mm3 (0.0-0.8) H 03/28/20 10:28 Eosinophils # (Manual) 0.0 K/mm3 (0.0-0.4) 03/28/20 10:28 Basophils # (Manual) 0.2 K/mm3 (0.0-0.1) H 03/28/20 10:28 Metamyelocytes # 0.0 K/mm3 03/28/20 10:28 Myelocytes # 0.0 K/mm3 03/28/20 10:28 Promyelocytes # 0.0 K/mm3 03/28/20 10:28 Blast Cells # 0.0 K/mm3 03/28/20 10:28 WBC Morphology Not Reportable 03/28/20 10:28 Hypersegmented Neuts Not Reportable 03/28/20 10:28 Hyposegmented Neuts Not Reportable 03/28/20 10:28 Hypogranular Neuts Not Reportable 03/28/20 10:28 Smudge Cells Not Reportable 03/28/20 10:28 Toxic Granulation 1+ 03/28/20 10:28 Toxic Vacuolation Not Reportable 03/28/20 10:28 Dohle Bodies Not Reportable 03/28/20 10:28 Pelger-Huet Anomaly Not Reportable 03/28/20 10:28 Robert Rods Not Reportable 03/28/20 10:28 Platelet Estimate Consistent w auto 03/28/20 10:28 Clumped Platelets Not Reportable 03/28/20 10:28 Plt Clumps, EDTA Not Reportable 03/28/20 10:28 Large Platelets Not Reportable 03/28/20 10:28 Giant Platelets Not Reportable 03/28/20 10:28 Platelet Satelliting Not Reportable 03/28/20 10:28 Plt Morphology Comment Not Reportable 03/28/20 10:28 RBC Morphology Not Reportable 03/28/20 10:28 Dimorphic RBCs Not Reportable 03/28/20 10:28 Polychromasia Not Reportable 03/28/20 10:28 Hypochromasia Not Reportable 03/28/20 10:28 Poikilocytosis Not Reportable 03/28/20 10:28 Anisocytosis 1+ 03/28/20 10:28 Microcytosis Not Reportable 03/28/20 10:28 Macrocytosis Not Reportable 03/28/20 10:28 Spherocytes Not Reportable 03/28/20 10:28 Pappenheimer Bodies Not Reportable 03/28/20 10:28 Sickle Cells Not Reportable 03/28/20 10:28 Target Cells Not Reportable 03/28/20 10:28 Tear Drop Cells Not Reportable 03/28/20 10:28 Ovalocytes Not Reportable 03/28/20 10:28 Stomatocytes Few 03/17/20 04:40 Helmet Cells Not Reportable 03/28/20 10:28 Gregory-Newry Bodies Not Reportable 03/28/20 10:28 Lincoln Rings Not Reportable 03/28/20 10:28 Riaz Cells Not Reportable 03/28/20 10:28 Bite Cells Not Reportable 03/28/20 10:28 Crenated Cell Not Reportable 03/28/20 10:28 Elliptocytes Not Reportable 03/28/20 10:28 Acanthocytes (Spur) Not Reportable 03/28/20 10:28 Rouleaux Not Reportable 03/28/20 10:28 Hemoglobin C Crystals Not Reportable 03/28/20 10:28 Schistocytes Not Reportable 03/28/20 10:28 Malaria parasites Not Reportable 03/28/20 10:28 Colton Bodies Not Reportable 03/28/20 10:28 Hem Pathologist Commnt No 03/28/20 10:28 PT 15.6 Sec. (12.2-14.9) H 02/24/20 09:19 INR 1.21 (0.87-1.13) H 02/24/20 09:19 APTT 25.4 Sec. (24.2-36.6) 02/24/20 09:19 D-Dimer 1311.96 ng/mlDDU (0-234) H 02/24/20 09:19 ABG pH 7.371 (7.320-7.450) 03/08/20 12:34 POC ABG pCO2 63.1 mmHg (32.0-48.0) H 03/08/20 12:34 ABG pCO2 60.1 mm Hg 03/06/20 04:34 POC ABG pO2 90.5 mmHg (83-108) 03/08/20 12:34 ABG pO2 88.6 mm Hg (80.0-90.0) 03/06/20 04:34 POC ABG HCO3 35.7 03/08/20 12:34 ABG HCO3 37.9 mmol/L (20.0-26.0) H 03/06/20 04:34 ABG O2 Saturation 97.0 % (95.0-99.0) 03/06/20 04:34 ABG O2 Content 14.3 (0.0-44) 03/06/20 04:34 POC ABG Base Excess 8.7 03/08/20 12:34 ABG Base Excess 11.4 mmol/L (-2.0-3.0) H 03/06/20 04:34 ABG Hemoglobin 10.9 (12.0-17.5) L 03/08/20 12:34 ABG Oxyhemoglobin 95.9 (94-98) 03/08/20 12:34 ABG Carboxyhemoglobin 1.7 % (0.0-5.0) 03/06/20 04:34 ABG Methemoglobin 0.3 (0.0-1.5) 03/08/20 12:34 ABG Sodium 143.6 mmol/L (136.0-145.0) 03/08/20 12:34 ABG Potassium 3.8 mmol/L (3.40-4.50) 03/08/20 12:34 ABG Chloride 102.0 mmol/L (98-107) 03/08/20 12:34 ABG Glucose 176 mg/dL (65-95) H 03/08/20 12:34 Oxyhemoglobin 94.7 % (95.0-99.0) L 03/06/20 04:34 Carboxyhemoglobin 0.7 (0.5-1.5) 03/08/20 12:34 FiO2 30 03/08/20 12:34 Sodium 134 mmol/L (137-145) L 03/28/20 10:28 Potassium 4.4 mmol/L (3.6-5.0) 03/28/20 10:28 Chloride 94.2 mmol/L (98-107) L 03/28/20 10:28 Carbon Dioxide 35 mmol/L (22-30) H 03/28/20 10:28 Anion Gap 9 mmol/L 03/28/20 10:28 BUN 17 mg/dL (9-20) 03/28/20 10:28 Creatinine < 0.2 mg/dL (0.8-1.3) L 03/28/20 10:28 Estimated GFR > 60 ml/min 03/28/20 10:28 BUN/Creatinine Ratio 85 % 03/28/20 10:28 Glucose 134 mg/dL (75-100) H 03/28/20 10:28 POC Glucose 139 mg/dL (70-105) H 03/30/20 11:38 Lactic Acid 1.00 mmol/L (0.7-2.0) 02/24/20 12:07 Calcium 8.8 mg/dL (8.4-10.2) 03/28/20 10:28 Phosphorus 3.30 mg/dL (2.5-4.5) 03/29/20 14:35 Magnesium 2.00 mg/dL (1.7-2.3) 03/29/20 14:35 Ferritin 1715.0 ng/mL (30.0-300.0) H 02/24/20 10:01 Total Bilirubin 0.60 mg/dL (0.1-1.2) 03/08/20 06:43 AST 34 units/L (5-40) 03/08/20 06:43 ALT 14 units/L (7-56) 03/08/20 06:43 Alkaline Phosphatase 56 units/L (35-129) 03/08/20 06:43 Lactate Dehydrogenase 303 units/L (91-180) H 02/24/20 09:19 Total Creatine Kinase 47 units/L (55-170) L 03/28/20 17:17 CK-MB (CK-2) 2.2 ng/mL (0.0-4.0) 03/28/20 17:17 CK-MB (CK-2) Rel Index 4.6 (0-4) H 03/28/20 17:17 Troponin T 0.090 ng/mL (0.00-0.029) H 03/28/20 17:17 C-Reactive Protein 4.70 mg/dL (0.00-1.30) H 02/28/20 11:05 NT-Pro-B Natriuret Pep 48.30 pg/mL (0-900) 02/24/20 09:19 Total Protein 5.9 g/dL (6.3-8.2) L 03/08/20 06:43 Albumin 3.2 g/dL (3.9-5) L 03/08/20 06:43 Albumin/Globulin Ratio 1.2 % 03/08/20 06:43 Prealbumin 0.090 g/L (0.200-0.400) L 02/28/20 12:54 Triglycerides 34 mg/dL (2-149) 03/22/20 18:00 Cholesterol 104 mg/dL (50-199) 03/22/20 18:00 LDL Cholesterol Direct 54 mg/dL (50-130) 03/22/20 18:00 HDL Cholesterol 40 mg/dL (40-59) 03/22/20 18:00 Cholesterol/HDL Ratio 2.60 % 03/22/20 18:00 Procalcitonin < 0.05 ng/mL (<0.15) 03/28/20 17:12 Arterial Blood Glucose 176 mg/dL (65-95) H 03/08/20 12:34 Arterial Blood Ionized Calcium 4.5 mg/dL (4.6-5.3) L 03/08/20 12:34 Urine Color Yellow (Yellow) 03/28/20 11:36 Urine Turbidity Hazy (Clear) 03/28/20 11:36 Urine pH 5.0 (5.0-7.0) 03/28/20 11:36 Ur Specific [place] 1.026 (1.003-1.030) 03/28/20 11:36 Urine Protein 100 mg/dl mg/dL (Negative) 03/28/20 11:36 Urine Glucose (UA) Neg mg/dL (Negative) 03/28/20 11:36 Urine Ketones Neg mg/dL (Negative) 03/28/20 11:36 Urine Blood Neg (Negative) 03/28/20 11:36 Urine Nitrite Neg (Negative) 03/28/20 11:36 Urine Bilirubin Neg (Negative) 03/28/20 11:36 Urine Urobilinogen 4.0 mg/dL (<2.0) 03/28/20 11:36 Ur Leukocyte Esterase Mod (Negative) 03/28/20 11:36 Urine WBC (Auto) 39.0 /HPF (0.0-6.0) H 03/28/20 11:36 Urine RBC (Auto) 16.0 /HPF (0.0-6.0) 03/28/20 11:36 U Epithel Cells (Auto) < 1.0 /HPF (0-13.0) 03/08/20 08:57 Urine Bacteria (Auto) 2+ /HPF (Negative) 03/28/20 11:36 Urine Mucus 3+ /HPF 03/28/20 11:36 Urine Yeast (Budding) 2+ /HPF 03/28/20 11:36 Vancomycin Trough 8.0 ug/mL (5.0-20.0) 03/04/20 08:59 Coronavirus (PCR) Negative (Negative) 02/25/20 09:03 Microbiology: Microbiology 03/28/20 11:36 Urine,Clean Catch Urine Culture - Final 03/28/20 17:12 Peripheral/Venous Blood Culture - Preliminary NO GROWTH AFTER 24 HOURS 03/28/20 17:12 Peripheral/Venous Blood Culture - Preliminary NO GROWTH AFTER 24 HOURS - Diagnostic Impressions Diagnostic Impressions: Echocardiogram 02/26/20 10:41 Transthoracic Echocardiogram Indication: Elevated Trop BP: 116/75 HR: 85 Conclusions *Global left ventricular wall motion and contractility are within normal limits. *The estimated ejection fraction is 50-55%. *Abnormal left ventricular diastolic filling is observed, consistent with impaired relaxation. *There is no pericardial effusion. Findings Left Ventricle: The left ventricular chamber size is normal. Global left ventricular wall motion and contractility are within normal limits. Global left ventricular systolic function is normal. The estimated ejection fraction is 50-55%. Abnormal left ventricular diastolic filling is observed, consistent with impaired relaxation. Left Atrium: The left atrial chamber size is normal. Right Ventricle: The right ventricular cavity size is normal. Right Atrium: The right atrial cavity size is normal. Aortic Valve: Mild aortic leaflet calcification is visualized. There is no evidence of aortic regurgitation. Mitral Valve: The mitral valve leaflets are mildly thickened. There is no evidence of mitral regurgitation. Tricuspid Valve: The tricuspid valve leaflets are normal. There is trace tricuspid regurgitation. The right ventricular systolic pressure is calculated at 29 mmHg. Pulmonic Valve: The pulmonic valve is not well visualized. Pericardium: There is no pericardial effusion. Aorta: The aorta appears normal. Venous: The inferior vena cava is dilated. There is less than 50% respiratory change in the inferior vena cava dimension. Measurements Chambers 2D Name Value Normal Range IVSd (2D) 0.97 cm (0.6 - 1.1) LVPWd (2D) 0.93 cm (0.6 - 1.1) LVIDd (2D) 4 cm (3.7 - 5.6) LVIDs (2D) 2.73 cm (2 - 3.8) LV FS (2D) 31.67 % - EF Teichholz (2D) 60.23 % - Ao root diameter (2D) 3.51 cm (2 - 3.7) Volumes/Mass Name Value Normal Range LA ESV SP 4CH (A/L) 8.43 ml - LA ESV SP 2CH (A/L) 18.89 ml - LA ESV BP (A/L) 13.02 ml - LA ESV BP (A/L) index 8.8 ml/m2 - LA ESV SP 4CH (MOD) 7.22 ml - LA ESV SP 2CH (MOD) 18.15 ml - LA ESV BP (MOD) 11.47 ml - LA ESV BP (MOD) index 7.75 ml/m2 - Diastolic/Systolic Function Name Value Normal Range MV E-wave Vmax 0.51 m/sec - MV deceleration time 180.22 msec - MV A-wave Vmax 0.62 m/sec - MV E:A ratio 0.82 ratio - Aortic Valve Name Value Normal Range AV Vmax 1.17 m/sec - AV VTI 19.71 cm - AV peak gradient 5.44 mmHg - AV mean gradient 3.38 mmHg - LVOT diameter 2.26 cm - LVOT Vmax 0.89 m/sec - LVOT VTI 13.72 cm - LVOT peak gradient 3.17 mmHg - LVOT mean gradient 1.67 mmHg - SV LVOT 55.03 ml - SHARAD (continuity Vmax) 3.06 cm2 - SHARAD (continuity VTI) 2.79 cm2 - Tricuspid Valve Name Value Normal Range TR Vmax 2.3 m/sec - TR peak gradient 21 mmHg - RAP 8 mmHg - RVSP 29 mmHg - IVC diameter 2.59 cm (1.2 - 2.3) Pulmonic Valve/Qp:Qs Name Value Normal Range PV acceleration time 68.51 msec - Drake/IV: Voiding Method Indwelling Catheter IV Catheter Type [Left Hand] Peripheral IV IV Catheter Type [Right Hand] Peripheral IV IV Catheter Type [Left Wrist] Peripheral IV IV Catheter Type [Right Peripheral IV Forearm] IV Catheter Type [Right Triple Lumen Cath Internal Jugular] IV Catheter Type [Left Forearm INT / Saline Lock ] IV Catheter Type [Right Triple Lumen Cath Femoral] IV Catheter Type [Right INT / Saline Lock Antecubital] Active Medications - Current Medications Current Medications: Generic Name Dose Route Start Last Admin Trade Name Freq PRN Reason Stop Dose Admin Acetaminophen 650 mg 02/24/20 15:13 03/08/20 00:10 Tylenol PO 650 mg Q4H PRN Administration Pain, Mild (1-3) Albuterol 2.5 mg 02/24/20 15:13 Proventil IH Q4HRT PRN Shortness Of Breath Lipase/Protease/Amylase 1 each 02/26/20 11:16 Pancreaze 10,500 Unit FEEDTUBE PRN PRN For Clogged Feeding Tube Bisacodyl 10 mg 03/12/20 18:00 03/15/20 17:50 Dulcolax NM 10 mg QDAY PRN Administration Bowel Movement Enoxaparin Sodium 40 mg 03/20/20 22:00 03/29/20 21:48 Enoxaparin SUB-Q 40 mg QDAY@2200 ALISA Administration Protocol Glycopyrrolate 2 mg 03/26/20 08:00 03/30/20 07:46 Robinul PO 2 mg TID ALISA Administration Lansoprazole 30 mg 02/28/20 10:00 03/30/20 09:15 Prevacid Solutab FEEDTUBE 30 mg QDAY ALISA Administration Metoprolol Tartrate 12.5 mg 02/24/20 22:00 03/30/20 09:15 Metoprolol PO 12.5 mg BID ALISA Administration Morphine Sulfate 2 mg 02/29/20 16:42 03/30/20 10:46 Morphine IV 2 mg Q4H PRN Administration Pain, Moderate (4-6) Scopolamine 1 each 03/03/20 14:00 03/30/20 09:15 Transderm-Scop TD 1 each Q3D ALISA Administration Simple Syrup 15 ml 02/26/20 11:16 Simple Syrup FEEDTUBE PRN PRN Hypoglycemia Simple Syrup 30 ml 02/26/20 11:16 Simple Syrup FEEDTUBE PRN PRN Hypoglycemia Sodium Bicarbonate 325 mg 02/26/20 11:16 Sodium Bicarbonate FEEDTUBE PRN PRN For Clogged Feeding Tube Tamsulosin HCl 0.4 mg 03/09/20 18:00 03/30/20 09:15 Flomax PO 0.4 mg QDAY ALISA Administration Zolpidem Tartrate 5 mg 03/24/20 14:53 03/28/20 22:07 Ambien PO 5 mg QHS PRN Administration Sleep Nutrition/Malnutrition Assess - Dietary Evaluation Nutrition/Malnutrition Findings: Nutrition Notes Start: 02/26/20 10:40 Freq: Status: Active Protocol: Document 03/28/20 11:24 EN (Rec: 03/28/20 11:50 EN [id number]) Co-Sign 03/28/20 11:24 NHALL Nutrition Notes Initial or Follow up Reassessment Current Diagnosis Decubitus(Pressure Ulcer), Sepsis,Respiratory Failure Other Pertinent Diagnosis COVID-19 (-), ALS, pneumonia, Hip/buttock PU Current Diet Vital AF 1.2 at 75ml/hr (goal rate) Labs/Tests Reviewed Pertinent Medications Reviewed Height 6 ft Weight 66 kg [place] Body Weight (kg) 80.90 BMI 19.7 Weight Status Appropriate Subjective/Other Information Pt continues tolerating TF at goal rate. 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 Yes Is Patient Ambulatory and/or Out of Bed No REE-([place]-[facility] Jeor-confined to bed) 1820.472 Kcal/Kg value to use for calculation 35 Approximate Energy Requirements Using 2310 kcal/Kg Calculation Used for Recommendations Kcal/kg Additional Notes Protein needs: 88-147 g (1.2-2 g/ kg ABW) Fluid: 1ml/kcal Nutrition Intervention Change Diet Order: Continue TF Nutrition Support: Vital AF 1.2 at 75ml/hr. Flush 200ml q4h For hyponatremia, flush 150 mL q4h Kcal 2,160 Protein (gm) 135 Fluid (mL) 1,460 Add Supplement/Snack (indicate name/kcal Will BID /protein ) Provides kCal: 190 Provides Protein (gm) 5 Goal #1 Meet at least 80% of energy and protein needs via TF Goal #2 Wound healing Anticipated Discharge Needs: Unable to determine at this time Follow-Up By: 04/04/20 Additional Comments Follow for stable TF
[2020-03-30] MEDS ORDERED: ZOLPIDEM 5 MG TAB PO PRN (14:20)
--- NOTE | 2020-03-30 14:24 | Progress Note ---
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 Respiratory Failure Severe Sepsis with Shock Bilateral Pneumonia (Possible aspiration) History of ALS on Trilogy Oropharyngeal Dysphagia PUI-COVID Acute toxic metabolic encephalopathy Elevated D-dimer Elevated troponin possibly type 2 ischemia - increased qhs prn ambien to 10 mg from 5 mg - begin xanax 0.5 mg po q8h prn (1st dose now) - pressure support reduced to 6 - discharge planning ongoing concurrently - continue care as below otherwise; - agrees to possible LTAC transfer while he is trying to find family members that may be trained for home ventilator support - wants us to talk to his "? personal watch caser" - continue to rest on AC overnight for now - continue to optimize electrolytes (prn BMP, Mg & PO4) - repeat CXR prn +/- bronchoscopy for mucus plugging / large volume atelectasis - continue to rest on AC qhs - LTAC evaluation is appropriate - continue Robinul & scopolamine for secretion control - prn electrolytes and optimize K+ & Mg 2+ for best respiratory muscle function - wound care per RN/WCN - continue Scopolamine patch for secretion control - wean supplemental oxygen for target O2 sat's > 92% acutely - bronchodilators with pulmonary hygiene per RT - VAP bundle addressed - continue lung protective strategies - continue bronchodilators with pulmonary hygiene per RT - wean per pulmonary driven protocols otherwise - sedation prn for target RASS 0 to -1 - s/p empiric antiinfectives per ID rec's (Rocephin and Zithromax) - s/p COVID-19 isolation (Airborne & Contact) - empiric Dexamethasone - follow COVID-19 test results (negative) - trend inflammatory markers to aid clinical decision making - enteral nutrition at goal rate as tolerated - Aspiration precautions - accuchecks with glycemic control per SSI (While critically ill target blood glucose of 140-180 mg/dL; avoid hypoglycemia) - avoid nephrotoxins, renally dose all medications - avoid benzodiazepine's, reduce the possibility of delirium - prn analgesia per CPOT score - Maintenance of sleep-wake cycle, avoid delirium - aspiration precautions - G.I. & VTE prophylaxis - PT/OT/ROM exercises - mobility protocols for pressure ulcer prophylaxis - Monitor hemodynamics closely - continue other care per attending / other consultants - discharge planning ongoing concurrently .... Re-evaluate in am & prn CONDITION: CRITICAL PROGNOSIS: GUARDED CODE STATUS: FULL CODE The high probability of a clinically significant, sudden or life-threatening deterioration of the [respiratory, cardiovascular & neurologic] system(s) required my full and direct attention, intervention and personal management. The aggregate critical care time was [36] minutes without overlap. Time includes spent on; [x] Data Review and interpretation [x] Patient assessment and monitoring of vital signs [x] Documentation [x] Medication orders and management Subjective Date of service: 03/30/20 Principal diagnosis: Ac on Ch Hypercapnic & hypoxemic Resp Failure; Severe Sepsis; Jamar PNA; ALS Interval history: Patient is seen today for: Acute on Chronic Hypercapnic & hypoxemic Respiratory Failure; Severe Sepsis with Shock; Bilateral Pneumonia (Possible aspiration); History of ALS on Trilogy; PUI-COVID; Acute toxic metabolic encephalopathy Seen and examined at bedside; 24hour events reviewed; nursing and respiratory care staff consulted; no adverse overnight events reported to me; resting in bed; remains on MVS; on PSV 8/6 and tolerating while asleep but very anxious when aroused; denies chest pain; afebrile; states he is still not sleeping well at night Objective Vital Signs - 12hr 03/30/20 03/30/20 03/30/20 02:31 02:46 03:00 Temperature Pulse Rate 108 H 113 H 105 H Pulse Rate [ From Monitor] Respiratory 15 18 15 Rate Blood Pressure 109/71 106/73 O2 Sat by Pulse 100 99 Oximetry O2 Sat by Pulse 99 Oximetry [ Assessment] 03/30/20 03/30/20 03/30/20 03:16 03:30 03:46 Temperature Pulse Rate 105 H 114 H 111 H Pulse Rate [ From Monitor] Respiratory 15 21 22 Rate Blood Pressure 106/73 111/72 111/72 O2 Sat by Pulse 100 100 100 Oximetry O2 Sat by Pulse Oximetry [ Assessment] 03/30/20 03/30/20 03/30/20 03:50 04:00 04:15 Temperature 99.1 F Pulse Rate 107 H 106 H Pulse Rate [ 110 H From Monitor] Respiratory 14 Rate Blood Pressure 109/76 109/76 O2 Sat by Pulse 100 100 Oximetry O2 Sat by Pulse Oximetry [ Assessment] 03/30/20 03/30/20 03/30/20 04:16 04:30 04:46 Temperature Pulse Rate 115 H 104 H 108 H Pulse Rate [ From Monitor] Respiratory 21 15 15 Rate Blood Pressure 109/76 110/72 110/72 O2 Sat by Pulse 100 99 100 Oximetry O2 Sat by Pulse Oximetry [ Assessment] 03/30/20 03/30/20 03/30/20 05:00 05:16 05:30 Temperature Pulse Rate 110 H 92 H 114 H Pulse Rate [ From Monitor] Respiratory 18 13 15 Rate Blood Pressure 112/72 112/72 107/73 O2 Sat by Pulse 100 100 99 Oximetry O2 Sat by Pulse Oximetry [ Assessment] 03/30/20 03/30/20 03/30/20 05:46 06:00 06:16 Temperature Pulse Rate 105 H 111 H 107 H Pulse Rate [ From Monitor] Respiratory 14 19 17 Rate Blood Pressure 107/73 109/74 109/74 O2 Sat by Pulse 100 99 100 Oximetry O2 Sat by Pulse Oximetry [ Assessment] 03/30/20 03/30/20 03/30/20 06:30 06:46 07:00 Temperature Pulse Rate 116 H 106 H 113 H Pulse Rate [ From Monitor] Respiratory 17 14 19 Rate Blood Pressure 110/74 110/74 113/73 O2 Sat by Pulse 99 97 Oximetry O2 Sat by Pulse Oximetry [ Assessment] 03/30/20 03/30/20 03/30/20 07:16 07:30 07:46 Temperature Pulse Rate 113 H 109 H 113 H Pulse Rate [ From Monitor] Respiratory 18 13 22 Rate Blood Pressure 113/73 111/74 111/74 O2 Sat by Pulse 99 97 99 Oximetry O2 Sat by Pulse Oximetry [ Assessment] 03/30/20 03/30/20 03/30/20 08:00 08:16 08:30 Temperature 98.7 F Pulse Rate 112 H 113 H 106 H Pulse Rate [ 105 H From Monitor] Respiratory 19 24 16 Rate Blood Pressure 106/67 106/67 113/73 O2 Sat by Pulse 97 100 99 Oximetry O2 Sat by Pulse Oximetry [ Assessment] 03/30/20 03/30/20 03/30/20 08:40 08:46 09:00 Temperature Pulse Rate 109 H 111 H 113 H Pulse Rate [ From Monitor] Respiratory 25 H 29 H 21 Rate Blood Pressure 113/73 113/73 122/72 O2 Sat by Pulse 100 100 99 Oximetry O2 Sat by Pulse Oximetry [ Assessment] 03/30/20 03/30/20 03/30/20 09:15 09:16 09:30 Temperature Pulse Rate 116 H 115 H Pulse Rate [ From Monitor] Respiratory 29 H 19 Rate Blood Pressure 122/72 122/72 127/80 O2 Sat by Pulse 98 98 Oximetry O2 Sat by Pulse Oximetry [ Assessment] 03/30/20 03/30/20 03/30/20 09:46 10:00 10:16 Temperature Pulse Rate 97 H 101 H 103 H Pulse Rate [ From Monitor] Respiratory 23 31 H 27 H Rate Blood Pressure 127/80 135/88 135/88 O2 Sat by Pulse 99 98 98 Oximetry O2 Sat by Pulse Oximetry [ Assessment] 03/30/20 03/30/20 03/30/20 10:30 10:46 11:00 Temperature Pulse Rate 102 H 107 H 105 H Pulse Rate [ From Monitor] Respiratory 29 H 36 H 23 Rate Blood Pressure 131/88 131/88 133/88 O2 Sat by Pulse 98 98 97 Oximetry O2 Sat by Pulse Oximetry [ Assessment] 03/30/20 03/30/20 03/30/20 11:16 11:30 11:46 Temperature Pulse Rate 110 H 109 H 112 H Pulse Rate [ From Monitor] Respiratory 26 H 19 33 H Rate Blood Pressure 133/88 139/89 139/89 O2 Sat by Pulse 98 96 99 Oximetry O2 Sat by Pulse Oximetry [ Assessment] 03/30/20 03/30/20 03/30/20 12:00 12:08 12:12 Temperature 98.5 F Pulse Rate 113 H 114 H Pulse Rate [ 104 H From Monitor] Respiratory 19 26 H Rate Blood Pressure 133/88 122/88 O2 Sat by Pulse 100 98 Oximetry O2 Sat by Pulse 98 Oximetry [ Assessment] 03/30/20 03/30/20 03/30/20 12:16 12:30 12:46 Temperature Pulse Rate 116 H 116 H 119 H Pulse Rate [ From Monitor] Respiratory 30 H 31 H 33 H Rate Blood Pressure 133/88 141/88 141/88 O2 Sat by Pulse 98 98 99 Oximetry O2 Sat by Pulse Oximetry [ Assessment] 03/30/20 03/30/20 03/30/20 13:00 13:16 13:30 Temperature Pulse Rate 117 H 117 H 118 H Pulse Rate [ From Monitor] Respiratory 24 31 H 25 H Rate Blood Pressure 140/90 140/90 134/88 O2 Sat by Pulse 98 98 97 Oximetry O2 Sat by Pulse Oximetry [ Assessment] 03/30/20 03/30/20 13:46 14:00 Temperature Pulse Rate 116 H 108 H Pulse Rate [ From Monitor] Respiratory 30 H 22 Rate Blood Pressure 134/88 134/88 O2 Sat by Pulse 98 96 Oximetry O2 Sat by Pulse Oximetry [ Assessment] Constitutional: appears uncomfortable, other (thin middle aged male with normal respiratory effort at rest on MVS) Eyes: non-icteric ENT: oropharynx moist, other (S/P Tracheostomy) Neck: supple, no lymphadenopathy, no JVD Effort: mildly labored Ascultation: Bilateral: clear, diminished breath sounds, wheezes, rhonchi Percussion: Bilateral: not dull Cardiovascular: regular rate and rhythm, other (S1,S2, no murmurs) Gastrointestinal: normoactive bowel sounds, soft, non-tender, non-distended, other (+ distended but non tender suprapubis) Integumentary: normal, decubitus ulcer (sacral / gluteal) Extremities: no cyanosis, no edema, pulses normal, other (atrophic looking limbs) Neurologic: pupils equal and round, other (motor strength in extremities 1-2/5, awake, alert, mouths words to make needs known) Psychiatric: depressed CBC and BMP: 03/28/20 10:28 03/28/20 10:28 ABG, PT/INR, D-dimer: ABG ABG pH 7.371 (7.320-7.450) 03/08/20 12:34 POC ABG pCO2 63.1 mmHg (32.0-48.0) H 03/08/20 12:34 ABG pCO2 60.1 mm Hg 03/06/20 04:34 POC ABG pO2 90.5 mmHg (83-108) 03/08/20 12:34 ABG pO2 88.6 mm Hg (80.0-90.0) 03/06/20 04:34 POC ABG HCO3 35.7 03/08/20 12:34 ABG O2 Saturation 97.0 % (95.0-99.0) 03/06/20 04:34 PT/INR, D-dimer PT 15.6 Sec. (12.2-14.9) H 02/24/20 09:19 INR 1.21 (0.87-1.13) H 02/24/20 09:19 D-Dimer 1311.96 ng/mlDDU (0-234) H 02/24/20 09:19 Abnormal lab findings: Abnormal Labs 02/24/20 02/24/20 02/24/20 09:19 09:19 09:19 WBC 20.2 H RBC 5.05 H Hgb Hct MCV MCH RDW 15.3 H Plt Count Lymph % (Auto) Lymph # (Auto) [place] # (Auto) Seg Neutrophils % Seg Neuts % (Manual) 86.0 H Lymphocytes % (Manual) 1.0 L Monocytes % (Manual) Basophils % (Manual) Seg Neutrophils # Seg Neutrophils # Man 17.4 H Lymphocytes # (Manual) 0.2 L Monocytes # (Manual) Eosinophils # (Manual) Basophils # (Manual) PT 15.6 H INR 1.21 H D-Dimer 1311.96 H ABG pH POC ABG pCO2 POC ABG pO2 ABG pO2 ABG HCO3 ABG O2 Saturation ABG Base Excess ABG Hemoglobin ABG Oxyhemoglobin ABG Potassium ABG Glucose Oxyhemoglobin Carboxyhemoglobin Sodium 135 L Potassium 3.2 L Chloride 92.2 L Carbon Dioxide BUN 6 L Creatinine < 0.2 L Glucose 124 H POC Glucose Calcium Ferritin Total Bilirubin 2.30 H Alkaline Phosphatase 132 H Lactate Dehydrogenase Total Creatine Kinase CK-MB (CK-2) Rel Index Troponin T 0.080 H C-Reactive Protein Total Protein Albumin 3.6 L Prealbumin LDL Cholesterol Direct 41 L Arterial Blood Glucose Arterial Blood Ionized Calcium Urine WBC (Auto) 02/24/20 02/24/20 02/24/20 09:19 09:58 10:01 WBC RBC Hgb Hct MCV MCH RDW Plt Count Lymph % (Auto) Lymph # (Auto) [place] # (Auto) Seg Neutrophils % Seg Neuts % (Manual) Lymphocytes % (Manual) Monocytes % (Manual) Basophils % (Manual) Seg Neutrophils # Seg Neutrophils # Man Lymphocytes # (Manual) Monocytes # (Manual) Eosinophils # (Manual) Basophils # (Manual) PT INR D-Dimer ABG pH 7.176 L* POC ABG pCO2 POC ABG pO2 ABG pO2 91.2 H ABG HCO3 ABG O2 Saturation ABG Base Excess -4.6 L ABG Hemoglobin ABG Oxyhemoglobin ABG Potassium ABG Glucose Oxyhemoglobin 92.6 L Carboxyhemoglobin Sodium Potassium Chloride Carbon Dioxide BUN Creatinine Glucose POC Glucose Calcium Ferritin 1715.0 H Total Bilirubin Alkaline Phosphatase Lactate Dehydrogenase 303 H Total Creatine Kinase CK-MB (CK-2) Rel Index Troponin T C-Reactive Protein 26.10 H Total Protein Albumin Prealbumin LDL Cholesterol Direct Arterial Blood Glucose Arterial Blood Ionized Calcium Urine WBC (Auto) 02/24/20 02/24/20 02/24/20 11:52 13:45 19:35 WBC RBC Hgb Hct MCV MCH RDW Plt Count Lymph % (Auto) Lymph # (Auto) [place] # (Auto) Seg Neutrophils % Seg Neuts % (Manual) Lymphocytes % (Manual) Monocytes % (Manual) Basophils % (Manual) Seg Neutrophils # Seg Neutrophils # Man Lymphocytes # (Manual) Monocytes # (Manual) Eosinophils # (Manual) Basophils # (Manual) PT INR D-Dimer ABG pH 7.051 L* 7.300 L POC ABG pCO2 POC ABG pO2 ABG pO2 94.7 H 75.1 L ABG HCO3 18.0 L ABG O2 Saturation 93.5 L ABG Base Excess -6.8 L -7.8 L ABG Hemoglobin 13.2 L 11.9 L ABG Oxyhemoglobin ABG Potassium ABG Glucose Oxyhemoglobin 91.0 L 92.7 L Carboxyhemoglobin Sodium Potassium Chloride Carbon Dioxide BUN Creatinine Glucose POC Glucose Calcium Ferritin Total Bilirubin Alkaline Phosphatase Lactate Dehydrogenase Total Creatine Kinase CK-MB (CK-2) Rel Index Troponin T 0.034 H D C-Reactive Protein Total Protein Albumin Prealbumin LDL Cholesterol Direct Arterial Blood Glucose Arterial Blood Ionized Calcium Urine WBC (Auto) 02/25/20 02/25/20 02/25/20 04:00 04:00 12:26 WBC 22.9 H RBC Hgb Hct MCV 83 L MCH 27 L RDW Plt Count 468 H Lymph % (Auto) Lymph # (Auto) [place] # (Auto) Seg Neutrophils % Seg Neuts % (Manual) 89.0 H Lymphocytes % (Manual) 7.0 L Monocytes % (Manual) Basophils % (Manual) Seg Neutrophils # Seg Neutrophils # Man 20.4 H Lymphocytes # (Manual) Monocytes # (Manual) Eosinophils # (Manual) Basophils # (Manual) PT INR D-Dimer ABG pH POC ABG pCO2 POC ABG pO2 ABG pO2 ABG HCO3 ABG O2 Saturation ABG Base Excess ABG Hemoglobin ABG Oxyhemoglobin ABG Potassium 2.6 L ABG Glucose 142 H Oxyhemoglobin Carboxyhemoglobin Sodium Potassium 3.2 L Chloride Carbon Dioxide 18 L BUN Creatinine 0.2 L Glucose 114 H POC Glucose Calcium Ferritin Total Bilirubin Alkaline Phosphatase Lactate Dehydrogenase Total Creatine Kinase CK-MB (CK-2) Rel Index Troponin T C-Reactive Protein Total Protein Albumin 3.5 L Prealbumin LDL Cholesterol Direct Arterial Blood Glucose 142 H Arterial Blood Ionized Calcium Urine WBC (Auto) 02/26/20 02/26/20 02/26/20 15:58 17:00 23:43 WBC RBC Hgb Hct MCV MCH RDW Plt Count Lymph % (Auto) Lymph # (Auto) [place] # (Auto) Seg Neutrophils % Seg Neuts % (Manual) Lymphocytes % (Manual) Monocytes % (Manual) Basophils % (Manual) Seg Neutrophils # Seg Neutrophils # Man Lymphocytes # (Manual) Monocytes # (Manual) Eosinophils # (Manual) Basophils # (Manual) PT INR D-Dimer ABG pH 7.502 H POC ABG pCO2 POC ABG pO2 213.6 H ABG pO2 ABG HCO3 ABG O2 Saturation ABG Base Excess ABG Hemoglobin ABG Oxyhemoglobin 99.2 H ABG Potassium 2.9 L ABG Glucose 160 H Oxyhemoglobin Carboxyhemoglobin 0.4 L Sodium Potassium Chloride Carbon Dioxide BUN Creatinine Glucose POC Glucose 189 H 120 H Calcium Ferritin Total Bilirubin Alkaline Phosphatase Lactate Dehydrogenase Total Creatine Kinase CK-MB (CK-2) Rel Index Troponin T C-Reactive Protein Total Protein Albumin Prealbumin LDL Cholesterol Direct Arterial Blood Glucose 160 H Arterial Blood Ionized Calcium 4.5 L Urine WBC (Auto) 02/27/20 02/27/20 02/27/20 05:00 07:04 17:45 WBC RBC Hgb Hct MCV MCH RDW Plt Count Lymph % (Auto) Lymph # (Auto) [place] # (Auto) Seg Neutrophils % Seg Neuts % (Manual) Lymphocytes % (Manual) Monocytes % (Manual) Basophils % (Manual) Seg Neutrophils # Seg Neutrophils # Man Lymphocytes # (Manual) Monocytes # (Manual) Eosinophils # (Manual) Basophils # (Manual) PT INR D-Dimer ABG pH 7.524 H POC ABG pCO2 POC ABG pO2 ABG pO2 ABG HCO3 ABG O2 Saturation ABG Base Excess ABG Hemoglobin ABG Oxyhemoglobin ABG Potassium 3.0 L ABG Glucose 143 H Oxyhemoglobin Carboxyhemoglobin Sodium Potassium Chloride Carbon Dioxide BUN Creatinine Glucose POC Glucose 154 H 175 H Calcium Ferritin Total Bilirubin Alkaline Phosphatase Lactate Dehydrogenase Total Creatine Kinase CK-MB (CK-2) Rel Index Troponin T C-Reactive Protein Total Protein Albumin Prealbumin LDL Cholesterol Direct Arterial Blood Glucose 143 H Arterial Blood Ionized Calcium Urine WBC (Auto) 02/27/20 02/28/20 02/28/20 Unknown 00:21 04:15 WBC 18.7 H RBC Hgb Hct MCV MCH RDW Plt Count Lymph % (Auto) 8.7 L Lymph # (Auto) [place] # (Auto) 1.2 H Seg Neutrophils % 84.6 H Seg Neuts % (Manual) Lymphocytes % (Manual) Monocytes % (Manual) Basophils % (Manual) Seg Neutrophils # 15.9 H Seg Neutrophils # Man Lymphocytes # (Manual) Monocytes # (Manual) Eosinophils # (Manual) Basophils # (Manual) PT INR D-Dimer ABG pH POC ABG pCO2 POC ABG pO2 ABG pO2 ABG HCO3 ABG O2 Saturation ABG Base Excess ABG Hemoglobin ABG Oxyhemoglobin ABG Potassium ABG Glucose Oxyhemoglobin Carboxyhemoglobin Sodium Potassium 2.9 L* Chloride Carbon Dioxide 33 H D BUN Creatinine < 0.2 L Glucose 157 H POC Glucose 134 H Calcium Ferritin Total Bilirubin Alkaline Phosphatase Lactate Dehydrogenase Total Creatine Kinase CK-MB (CK-2) Rel Index Troponin T C-Reactive Protein Total Protein Albumin Prealbumin LDL Cholesterol Direct Arterial Blood Glucose Arterial Blood Ionized Calcium Urine WBC (Auto) 02/28/20 02/28/20 02/28/20 04:15 05:16 05:39 WBC RBC Hgb Hct MCV MCH RDW Plt Count Lymph % (Auto) Lymph # (Auto) [place] # (Auto) Seg Neutrophils % Seg Neuts % (Manual) Lymphocytes % (Manual) Monocytes % (Manual) Basophils % (Manual) Seg Neutrophils # Seg Neutrophils # Man Lymphocytes # (Manual) Monocytes # (Manual) Eosinophils # (Manual) Basophils # (Manual) PT INR D-Dimer ABG pH POC ABG pCO2 POC ABG pO2 ABG pO2 142.9 H ABG HCO3 34.1 H ABG O2 Saturation ABG Base Excess 8.3 H ABG Hemoglobin ABG Oxyhemoglobin ABG Potassium ABG Glucose Oxyhemoglobin Carboxyhemoglobin Sodium 151 H Potassium Chloride Carbon Dioxide 32 H BUN Creatinine 0.2 L Glucose 167 H POC Glucose 138 H Calcium Ferritin Total Bilirubin Alkaline Phosphatase Lactate Dehydrogenase Total Creatine Kinase CK-MB (CK-2) Rel Index Troponin T C-Reactive Protein Total Protein Albumin Prealbumin LDL Cholesterol Direct Arterial Blood Glucose Arterial Blood Ionized Calcium Urine WBC (Auto) 02/28/20 02/28/20 02/28/20 11:05 11:33 12:54 WBC RBC Hgb Hct MCV MCH RDW Plt Count Lymph % (Auto) Lymph # (Auto) [place] # (Auto) Seg Neutrophils % Seg Neuts % (Manual) Lymphocytes % (Manual) Monocytes % (Manual) Basophils % (Manual) Seg Neutrophils # Seg Neutrophils # Man Lymphocytes # (Manual) Monocytes # (Manual) Eosinophils # (Manual) Basophils # (Manual) PT INR D-Dimer ABG pH POC ABG pCO2 POC ABG pO2 ABG pO2 ABG HCO3 ABG O2 Saturation ABG Base Excess ABG Hemoglobin ABG Oxyhemoglobin ABG Potassium ABG Glucose Oxyhemoglobin Carboxyhemoglobin Sodium Potassium Chloride Carbon Dioxide BUN Creatinine Glucose POC Glucose 160 H Calcium Ferritin Total Bilirubin Alkaline Phosphatase Lactate Dehydrogenase Total Creatine Kinase CK-MB (CK-2) Rel Index Troponin T C-Reactive Protein 4.70 H Total Protein Albumin Prealbumin 0.090 L LDL Cholesterol Direct Arterial Blood Glucose Arterial Blood Ionized Calcium Urine WBC (Auto) 02/28/20 02/29/20 02/29/20 17:34 00:44 04:05 WBC 19.6 H RBC Hgb Hct MCV MCH 27 L RDW 15.4 H Plt Count Lymph % (Auto) Lymph # (Auto) [place] # (Auto) Seg Neutrophils % Seg Neuts % (Manual) 86.0 H Lymphocytes % (Manual) 7.0 L Monocytes % (Manual) Basophils % (Manual) Seg Neutrophils # Seg Neutrophils # Man 16.9 H Lymphocytes # (Manual) Monocytes # (Manual) 1.2 H Eosinophils # (Manual) Basophils # (Manual) PT INR D-Dimer ABG pH POC ABG pCO2 POC ABG pO2 ABG pO2 ABG HCO3 ABG O2 Saturation ABG Base Excess ABG Hemoglobin ABG Oxyhemoglobin ABG Potassium ABG Glucose Oxyhemoglobin Carboxyhemoglobin Sodium Potassium Chloride Carbon Dioxide BUN Creatinine Glucose POC Glucose 136 H 156 H Calcium Ferritin Total Bilirubin Alkaline Phosphatase Lactate Dehydrogenase Total Creatine Kinase CK-MB (CK-2) Rel Index Troponin T C-Reactive Protein Total Protein Albumin Prealbumin LDL Cholesterol Direct Arterial Blood Glucose Arterial Blood Ionized Calcium Urine WBC (Auto) 02/29/20 02/29/20 02/29/20 04:05 05:14 05:33 WBC RBC Hgb Hct MCV MCH RDW Plt Count Lymph % (Auto) Lymph # (Auto) [place] # (Auto) Seg Neutrophils % Seg Neuts % (Manual) Lymphocytes % (Manual) Monocytes % (Manual) Basophils % (Manual) Seg Neutrophils # Seg Neutrophils # Man Lymphocytes # (Manual) Monocytes # (Manual) Eosinophils # (Manual) Basophils # (Manual) PT INR D-Dimer ABG pH POC ABG pCO2 54.3 H POC ABG pO2 124.8 H ABG pO2 ABG HCO3 ABG O2 Saturation ABG Base Excess ABG Hemoglobin ABG Oxyhemoglobin ABG Potassium ABG Glucose 185 H Oxyhemoglobin Carboxyhemoglobin Sodium 148 H Potassium Chloride Carbon Dioxide 33 H BUN Creatinine < 0.2 L Glucose 173 H POC Glucose 152 H Calcium Ferritin Total Bilirubin Alkaline Phosphatase Lactate Dehydrogenase Total Creatine Kinase CK-MB (CK-2) Rel Index Troponin T C-Reactive Protein Total Protein Albumin Prealbumin LDL Cholesterol Direct Arterial Blood Glucose 185 H Arterial Blood Ionized Calcium Urine WBC (Auto) 03/01/20 03/01/20 03/01/20 00:00 03:45 04:33 WBC 23.1 H RBC Hgb Hct MCV MCH 27 L RDW 15.3 H Plt Count Lymph % (Auto) Lymph # (Auto) [place] # (Auto) Seg Neutrophils % Seg Neuts % (Manual) 92.0 H Lymphocytes % (Manual) 6.0 L Monocytes % (Manual) Basophils % (Manual) Seg Neutrophils # Seg Neutrophils # Man 21.3 H Lymphocytes # (Manual) Monocytes # (Manual) Eosinophils # (Manual) 0.5 H Basophils # (Manual) PT INR D-Dimer ABG pH 7.492 H POC ABG pCO2 POC ABG pO2 ABG pO2 157.1 H ABG HCO3 32.3 H ABG O2 Saturation ABG Base Excess 8.1 H ABG Hemoglobin 13.2 L ABG Oxyhemoglobin ABG Potassium ABG Glucose Oxyhemoglobin Carboxyhemoglobin Sodium Potassium Chloride Carbon Dioxide BUN Creatinine Glucose POC Glucose 109 H Calcium Ferritin Total Bilirubin Alkaline Phosphatase Lactate Dehydrogenase Total Creatine Kinase CK-MB (CK-2) Rel Index Troponin T C-Reactive Protein Total Protein Albumin Prealbumin LDL Cholesterol Direct Arterial Blood Glucose Arterial Blood Ionized Calcium Urine WBC (Auto) 03/01/20 03/01/20 03/01/20 04:33 05:29 12:32 WBC RBC Hgb Hct MCV MCH RDW Plt Count Lymph % (Auto) Lymph # (Auto) [place] # (Auto) Seg Neutrophils % Seg Neuts % (Manual) Lymphocytes % (Manual) Monocytes % (Manual) Basophils % (Manual) Seg Neutrophils # Seg Neutrophils # Man Lymphocytes # (Manual) Monocytes # (Manual) Eosinophils # (Manual) Basophils # (Manual) PT INR D-Dimer ABG pH POC ABG pCO2 POC ABG pO2 ABG pO2 ABG HCO3 ABG O2 Saturation ABG Base Excess ABG Hemoglobin ABG Oxyhemoglobin ABG Potassium ABG Glucose Oxyhemoglobin Carboxyhemoglobin Sodium 146 H Potassium Chloride Carbon Dioxide 32 H BUN Creatinine < 0.2 L Glucose 120 H POC Glucose 120 H 128 H Calcium Ferritin Total Bilirubin Alkaline Phosphatase Lactate Dehydrogenase Total Creatine Kinase CK-MB (CK-2) Rel Index Troponin T C-Reactive Protein Total Protein Albumin Prealbumin LDL Cholesterol Direct Arterial Blood Glucose Arterial Blood Ionized Calcium Urine WBC (Auto) 03/01/20 03/01/20 03/02/20 17:38 23:46 06:13 WBC RBC Hgb Hct MCV MCH RDW Plt Count Lymph % (Auto) Lymph # (Auto) [place] # (Auto) Seg Neutrophils % Seg Neuts % (Manual) Lymphocytes % (Manual) Monocytes % (Manual) Basophils % (Manual) Seg Neutrophils # Seg Neutrophils # Man Lymphocytes # (Manual) Monocytes # (Manual) Eosinophils # (Manual) Basophils # (Manual) PT INR D-Dimer ABG pH POC ABG pCO2 POC ABG pO2 ABG pO2 ABG HCO3 ABG O2 Saturation ABG Base Excess ABG Hemoglobin ABG Oxyhemoglobin ABG Potassium ABG Glucose Oxyhemoglobin Carboxyhemoglobin Sodium Potassium Chloride Carbon Dioxide BUN Creatinine Glucose POC Glucose 114 H 121 H 120 H Calcium Ferritin Total Bilirubin Alkaline Phosphatase Lactate Dehydrogenase Total Creatine Kinase CK-MB (CK-2) Rel Index Troponin T C-Reactive Protein Total Protein Albumin Prealbumin LDL Cholesterol Direct Arterial Blood Glucose Arterial Blood Ionized Calcium Urine WBC (Auto) 03/02/20 03/02/20 03/03/20 09:47 09:47 10:21 WBC 23.6 H RBC Hgb Hct MCV MCH RDW 15.3 H Plt Count 494 H Lymph % (Auto) Lymph # (Auto) [place] # (Auto) Seg Neutrophils % Seg Neuts % (Manual) 85.0 H Lymphocytes % (Manual) 6.0 L Monocytes % (Manual) Basophils % (Manual) Seg Neutrophils # Seg Neutrophils # Man 20.1 H Lymphocytes # (Manual) Monocytes # (Manual) 1.7 H Eosinophils # (Manual) Basophils # (Manual) PT INR D-Dimer ABG pH POC ABG pCO2 POC ABG pO2 ABG pO2 ABG HCO3 ABG O2 Saturation ABG Base Excess ABG Hemoglobin ABG Oxyhemoglobin ABG Potassium 3.3 L ABG Glucose 158 H Oxyhemoglobin Carboxyhemoglobin Sodium Potassium Chloride Carbon Dioxide BUN Creatinine < 0.2 L Glucose 177 H POC Glucose Calcium Ferritin Total Bilirubin Alkaline Phosphatase Lactate Dehydrogenase Total Creatine Kinase CK-MB (CK-2) Rel Index Troponin T C-Reactive Protein Total Protein Albumin Prealbumin LDL Cholesterol Direct Arterial Blood Glucose 158 H Arterial Blood Ionized Calcium Urine WBC (Auto) 03/03/20 03/04/20 03/04/20 21:30 00:00 12:23 WBC RBC Hgb Hct MCV MCH RDW Plt Count Lymph % (Auto) Lymph # (Auto) [place] # (Auto) Seg Neutrophils % Seg Neuts % (Manual) Lymphocytes % (Manual) Monocytes % (Manual) Basophils % (Manual) Seg Neutrophils # Seg Neutrophils # Man Lymphocytes # (Manual) Monocytes # (Manual) Eosinophils # (Manual) Basophils # (Manual) PT INR D-Dimer ABG pH 7.328 L POC ABG pCO2 POC ABG pO2 ABG pO2 68.4 L ABG HCO3 35.0 H ABG O2 Saturation 93.9 L ABG Base Excess 6.8 H ABG Hemoglobin 12.7 L ABG Oxyhemoglobin ABG Potassium ABG Glucose Oxyhemoglobin 91.9 L Carboxyhemoglobin Sodium Potassium Chloride Carbon Dioxide BUN Creatinine Glucose POC Glucose 187 H 163 H Calcium Ferritin Total Bilirubin Alkaline Phosphatase Lactate Dehydrogenase Total Creatine Kinase CK-MB (CK-2) Rel Index Troponin T C-Reactive Protein Total Protein Albumin Prealbumin LDL Cholesterol Direct Arterial Blood Glucose Arterial Blood Ionized Calcium Urine WBC (Auto) 03/04/20 03/04/20 03/05/20 18:15 21:30 06:02 WBC RBC Hgb Hct MCV MCH RDW Plt Count Lymph % (Auto) Lymph # (Auto) [place] # (Auto) Seg Neutrophils % Seg Neuts % (Manual) Lymphocytes % (Manual) Monocytes % (Manual) Basophils % (Manual) Seg Neutrophils # Seg Neutrophils # Man Lymphocytes # (Manual) Monocytes # (Manual) Eosinophils # (Manual) Basophils # (Manual) PT INR D-Dimer ABG pH 7.297 L POC ABG pCO2 POC ABG pO2 ABG pO2 ABG HCO3 41.0 H ABG O2 Saturation ABG Base Excess 11.0 H ABG Hemoglobin 13.1 L ABG Oxyhemoglobin ABG Potassium ABG Glucose Oxyhemoglobin 94.5 L Carboxyhemoglobin Sodium Potassium Chloride Carbon Dioxide BUN Creatinine Glucose POC Glucose 192 H 127 H Calcium Ferritin Total Bilirubin Alkaline Phosphatase Lactate Dehydrogenase Total Creatine Kinase CK-MB (CK-2) Rel Index Troponin T C-Reactive Protein Total Protein Albumin Prealbumin LDL Cholesterol Direct Arterial Blood Glucose Arterial Blood Ionized Calcium Urine WBC (Auto) 03/05/20 03/05/20 03/06/20 12:09 16:42 00:24 WBC RBC Hgb Hct MCV MCH RDW Plt Count Lymph % (Auto) Lymph # (Auto) [place] # (Auto) Seg Neutrophils % Seg Neuts % (Manual) Lymphocytes % (Manual) Monocytes % (Manual) Basophils % (Manual) Seg Neutrophils # Seg Neutrophils # Man Lymphocytes # (Manual) Monocytes # (Manual) Eosinophils # (Manual) Basophils # (Manual) PT INR D-Dimer ABG pH POC ABG pCO2 POC ABG pO2 ABG pO2 ABG HCO3 ABG O2 Saturation ABG Base Excess ABG Hemoglobin ABG Oxyhemoglobin ABG Potassium ABG Glucose Oxyhemoglobin Carboxyhemoglobin Sodium Potassium Chloride Carbon Dioxide BUN Creatinine Glucose POC Glucose 147 H 114 H 134 H Calcium Ferritin Total Bilirubin Alkaline Phosphatase Lactate Dehydrogenase Total Creatine Kinase CK-MB (CK-2) Rel Index Troponin T C-Reactive Protein Total Protein Albumin Prealbumin LDL Cholesterol Direct Arterial Blood Glucose Arterial Blood Ionized Calcium Urine WBC (Auto) 03/06/20 03/06/20 03/06/20 04:34 05:53 06:08 WBC 25.4 H RBC Hgb 10.5 L Hct 32.7 L MCV MCH 27 L RDW 15.3 H Plt Count 634 H Lymph % (Auto) Lymph # (Auto) [place] # (Auto) Seg Neutrophils % Seg Neuts % (Manual) 88.0 H Lymphocytes % (Manual) 2.0 L Monocytes % (Manual) 8.0 H Basophils % (Manual) Seg Neutrophils # Seg Neutrophils # Man 22.4 H Lymphocytes # (Manual) 0.5 L Monocytes # (Manual) 2.0 H Eosinophils # (Manual) Basophils # (Manual) PT INR D-Dimer ABG pH POC ABG pCO2 POC ABG pO2 ABG pO2 ABG HCO3 37.9 H ABG O2 Saturation ABG Base Excess 11.4 H ABG Hemoglobin 10.6 L ABG Oxyhemoglobin ABG Potassium ABG Glucose Oxyhemoglobin 94.7 L Carboxyhemoglobin Sodium Potassium Chloride Carbon Dioxide BUN Creatinine Glucose POC Glucose 135 H Calcium Ferritin Total Bilirubin Alkaline Phosphatase Lactate Dehydrogenase Total Creatine Kinase CK-MB (CK-2) Rel Index Troponin T C-Reactive Protein Total Protein Albumin Prealbumin LDL Cholesterol Direct Arterial Blood Glucose Arterial Blood Ionized Calcium Urine WBC (Auto) 03/06/20 03/06/20 03/06/20 06:08 12:19 19:10 WBC RBC Hgb Hct MCV MCH RDW Plt Count Lymph % (Auto) Lymph # (Auto) [place] # (Auto) Seg Neutrophils % Seg Neuts % (Manual) Lymphocytes % (Manual) Monocytes % (Manual) Basophils % (Manual) Seg Neutrophils # Seg Neutrophils # Man Lymphocytes # (Manual) Monocytes # (Manual) Eosinophils # (Manual) Basophils # (Manual) PT INR D-Dimer ABG pH POC ABG pCO2 POC ABG pO2 ABG pO2 ABG HCO3 ABG O2 Saturation ABG Base Excess ABG Hemoglobin ABG Oxyhemoglobin ABG Potassium ABG Glucose Oxyhemoglobin Carboxyhemoglobin Sodium 150 H D Potassium Chloride Carbon Dioxide 39 H D BUN 23 H Creatinine < 0.2 L Glucose 144 H POC Glucose 169 H 152 H Calcium Ferritin Total Bilirubin Alkaline Phosphatase Lactate Dehydrogenase Total Creatine Kinase CK-MB (CK-2) Rel Index Troponin T C-Reactive Protein Total Protein Albumin 3.3 L Prealbumin LDL Cholesterol Direct Arterial Blood Glucose Arterial Blood Ionized Calcium Urine WBC (Auto) 03/06/20 03/07/20 03/07/20 23:58 04:25 04:25 WBC 22.1 H RBC Hgb 10.9 L Hct 32.9 L MCV MCH RDW 15.5 H Plt Count 739 H Lymph % (Auto) 7.8 L Lymph # (Auto) [place] # (Auto) 1.3 H Seg Neutrophils % 85.5 H Seg Neuts % (Manual) Lymphocytes % (Manual) Monocytes % (Manual) Basophils % (Manual) Seg Neutrophils # 18.9 H Seg Neutrophils # Man Lymphocytes # (Manual) Monocytes # (Manual) Eosinophils # (Manual) Basophils # (Manual) PT INR D-Dimer ABG pH POC ABG pCO2 POC ABG pO2 ABG pO2 ABG HCO3 ABG O2 Saturation ABG Base Excess ABG Hemoglobin ABG Oxyhemoglobin ABG Potassium ABG Glucose Oxyhemoglobin Carboxyhemoglobin Sodium 146 H Potassium Chloride Carbon Dioxide 37 H BUN Creatinine < 0.2 L Glucose 118 H POC Glucose 111 H Calcium Ferritin Total Bilirubin Alkaline Phosphatase Lactate Dehydrogenase Total Creatine Kinase CK-MB (CK-2) Rel Index Troponin T C-Reactive Protein Total Protein Albumin 3.7 L Prealbumin LDL Cholesterol Direct Arterial Blood Glucose Arterial Blood Ionized Calcium Urine WBC (Auto) 03/07/20 03/07/20 03/07/20 05:20 17:45 23:32 WBC RBC Hgb Hct MCV MCH RDW Plt Count Lymph % (Auto) Lymph # (Auto) [place] # (Auto) Seg Neutrophils % Seg Neuts % (Manual) Lymphocytes % (Manual) Monocytes % (Manual) Basophils % (Manual) Seg Neutrophils # Seg Neutrophils # Man Lymphocytes # (Manual) Monocytes # (Manual) Eosinophils # (Manual) Basophils # (Manual) PT INR D-Dimer ABG pH POC ABG pCO2 POC ABG pO2 ABG pO2 ABG HCO3 ABG O2 Saturation ABG Base Excess ABG Hemoglobin ABG Oxyhemoglobin ABG Potassium ABG Glucose Oxyhemoglobin Carboxyhemoglobin Sodium Potassium Chloride Carbon Dioxide BUN Creatinine Glucose POC Glucose 113 H 124 H 210 H Calcium Ferritin Total Bilirubin Alkaline Phosphatase Lactate Dehydrogenase Total Creatine Kinase CK-MB (CK-2) Rel Index Troponin T C-Reactive Protein Total Protein Albumin Prealbumin LDL Cholesterol Direct Arterial Blood Glucose Arterial Blood Ionized Calcium Urine WBC (Auto) 03/08/20 03/08/20 03/08/20 05:35 06:43 06:43 WBC 28.9 H RBC 3.53 L Hgb 9.7 L Hct 30.3 L MCV MCH RDW 15.6 H Plt Count 578 H Lymph % (Auto) Lymph # (Auto) [place] # (Auto) Seg Neutrophils % Seg Neuts % (Manual) 93.0 H Lymphocytes % (Manual) 4.0 L Monocytes % (Manual) Basophils % (Manual) Seg Neutrophils # Seg Neutrophils # Man 26.9 H Lymphocytes # (Manual) Monocytes # (Manual) Eosinophils # (Manual) Basophils # (Manual) PT INR D-Dimer ABG pH POC ABG pCO2 POC ABG pO2 ABG pO2 ABG HCO3 ABG O2 Saturation ABG Base Excess ABG Hemoglobin ABG Oxyhemoglobin ABG Potassium ABG Glucose Oxyhemoglobin Carboxyhemoglobin Sodium 146 H Potassium Chloride Carbon Dioxide 35 H BUN 34 H Creatinine 0.3 L D Glucose 125 H POC Glucose 147 H Calcium Ferritin Total Bilirubin Alkaline Phosphatase Lactate Dehydrogenase Total Creatine Kinase CK-MB (CK-2) Rel Index Troponin T C-Reactive Protein Total Protein 5.9 L Albumin 3.2 L Prealbumin LDL Cholesterol Direct Arterial Blood Glucose Arterial Blood Ionized Calcium Urine WBC (Auto) 03/08/20 03/08/20 03/08/20 08:57 11:14 12:34 WBC RBC Hgb Hct MCV MCH RDW Plt Count Lymph % (Auto) Lymph # (Auto) [place] # (Auto) Seg Neutrophils % Seg Neuts % (Manual) Lymphocytes % (Manual) Monocytes % (Manual) Basophils % (Manual) Seg Neutrophils # Seg Neutrophils # Man Lymphocytes # (Manual) Monocytes # (Manual) Eosinophils # (Manual) Basophils # (Manual) PT INR D-Dimer ABG pH POC ABG pCO2 63.1 H POC ABG pO2 ABG pO2 ABG HCO3 ABG O2 Saturation ABG Base Excess ABG Hemoglobin 10.9 L ABG Oxyhemoglobin ABG Potassium ABG Glucose 176 H Oxyhemoglobin Carboxyhemoglobin Sodium Potassium Chloride Carbon Dioxide BUN Creatinine Glucose POC Glucose 171 H Calcium Ferritin Total Bilirubin Alkaline Phosphatase Lactate Dehydrogenase Total Creatine Kinase CK-MB (CK-2) Rel Index Troponin T C-Reactive Protein Total Protein Albumin Prealbumin LDL Cholesterol Direct Arterial Blood Glucose 176 H Arterial Blood Ionized Calcium 4.5 L Urine WBC (Auto) 10.0 H 03/08/20 03/08/20 03/09/20 18:02 23:43 05:49 WBC RBC Hgb Hct MCV MCH RDW Plt Count Lymph % (Auto) Lymph # (Auto) [place] # (Auto) Seg Neutrophils % Seg Neuts % (Manual) Lymphocytes % (Manual) Monocytes % (Manual) Basophils % (Manual) Seg Neutrophils # Seg Neutrophils # Man Lymphocytes # (Manual) Monocytes # (Manual) Eosinophils # (Manual) Basophils # (Manual) PT INR D-Dimer ABG pH POC ABG pCO2 POC ABG pO2 ABG pO2 ABG HCO3 ABG O2 Saturation ABG Base Excess ABG Hemoglobin ABG Oxyhemoglobin ABG Potassium ABG Glucose Oxyhemoglobin Carboxyhemoglobin Sodium Potassium Chloride Carbon Dioxide BUN Creatinine Glucose POC Glucose 157 H 134 H 163 H Calcium Ferritin Total Bilirubin Alkaline Phosphatase Lactate Dehydrogenase Total Creatine Kinase CK-MB (CK-2) Rel Index Troponin T C-Reactive Protein Total Protein Albumin Prealbumin LDL Cholesterol Direct Arterial Blood Glucose Arterial Blood Ionized Calcium Urine WBC (Auto) 03/09/20 03/09/20 03/09/20 08:35 08:35 12:11 WBC 23.4 H RBC 3.36 L Hgb 9.3 L Hct 28.8 L MCV MCH RDW 15.9 H Plt Count 521 H Lymph % (Auto) Lymph # (Auto) [place] # (Auto) Seg Neutrophils % Seg Neuts % (Manual) 87.0 H Lymphocytes % (Manual) 4.0 L Monocytes % (Manual) 9.0 H Basophils % (Manual) Seg Neutrophils # Seg Neutrophils # Man 20.4 H Lymphocytes # (Manual) 0.9 L Monocytes # (Manual) 2.1 H Eosinophils # (Manual) Basophils # (Manual) PT INR D-Dimer ABG pH POC ABG pCO2 POC ABG pO2 ABG pO2 ABG HCO3 ABG O2 Saturation ABG Base Excess ABG Hemoglobin ABG Oxyhemoglobin ABG Potassium ABG Glucose Oxyhemoglobin Carboxyhemoglobin Sodium 147 H Potassium Chloride Carbon Dioxide 37 H BUN 63 H Creatinine Glucose 154 H POC Glucose 128 H Calcium Ferritin Total Bilirubin Alkaline Phosphatase Lactate Dehydrogenase Total Creatine Kinase CK-MB (CK-2) Rel Index Troponin T C-Reactive Protein Total Protein Albumin Prealbumin LDL Cholesterol Direct Arterial Blood Glucose Arterial Blood Ionized Calcium Urine WBC (Auto) 03/09/20 03/10/20 03/10/20 17:51 00:25 05:41 WBC RBC Hgb Hct MCV MCH RDW Plt Count Lymph % (Auto) Lymph # (Auto) [place] # (Auto) Seg Neutrophils % Seg Neuts % (Manual) Lymphocytes % (Manual) Monocytes % (Manual) Basophils % (Manual) Seg Neutrophils # Seg Neutrophils # Man Lymphocytes # (Manual) Monocytes # (Manual) Eosinophils # (Manual) Basophils # (Manual) PT INR D-Dimer ABG pH POC ABG pCO2 POC ABG pO2 ABG pO2 ABG HCO3 ABG O2 Saturation ABG Base Excess ABG Hemoglobin ABG Oxyhemoglobin ABG Potassium ABG Glucose Oxyhemoglobin Carboxyhemoglobin Sodium Potassium Chloride Carbon Dioxide BUN Creatinine Glucose POC Glucose 127 H 128 H 153 H Calcium Ferritin Total Bilirubin Alkaline Phosphatase Lactate Dehydrogenase Total Creatine Kinase CK-MB (CK-2) Rel Index Troponin T C-Reactive Protein Total Protein Albumin Prealbumin LDL Cholesterol Direct Arterial Blood Glucose Arterial Blood Ionized Calcium Urine WBC (Auto) 03/10/20 03/10/20 03/10/20 06:14 06:14 12:02 WBC 18.3 H RBC 3.45 L Hgb 9.5 L Hct 29.5 L MCV MCH RDW 16.1 H Plt Count 494 H Lymph % (Auto) Lymph # (Auto) [place] # (Auto) Seg Neutrophils % Seg Neuts % (Manual) 95.0 H Lymphocytes % (Manual) 1.0 L Monocytes % (Manual) Basophils % (Manual) Seg Neutrophils # Seg Neutrophils # Man 17.4 H Lymphocytes # (Manual) 0.2 L Monocytes # (Manual) Eosinophils # (Manual) Basophils # (Manual) PT INR D-Dimer ABG pH POC ABG pCO2 POC ABG pO2 ABG pO2 ABG HCO3 ABG O2 Saturation ABG Base Excess ABG Hemoglobin ABG Oxyhemoglobin ABG Potassium ABG Glucose Oxyhemoglobin Carboxyhemoglobin Sodium 149 H Potassium Chloride Carbon Dioxide 35 H BUN 34 H Creatinine 0.2 L D Glucose 177 H POC Glucose 151 H Calcium Ferritin Total Bilirubin Alkaline Phosphatase Lactate Dehydrogenase Total Creatine Kinase CK-MB (CK-2) Rel Index Troponin T C-Reactive Protein Total Protein Albumin Prealbumin LDL Cholesterol Direct Arterial Blood Glucose Arterial Blood Ionized Calcium Urine WBC (Auto) 03/10/20 03/10/20 03/11/20 17:41 23:53 05:02 WBC RBC Hgb Hct MCV MCH RDW Plt Count Lymph % (Auto) Lymph # (Auto) [place] # (Auto) Seg Neutrophils % Seg Neuts % (Manual) Lymphocytes % (Manual) Monocytes % (Manual) Basophils % (Manual) Seg Neutrophils # Seg Neutrophils # Man Lymphocytes # (Manual) Monocytes # (Manual) Eosinophils # (Manual) Basophils # (Manual) PT INR D-Dimer ABG pH POC ABG pCO2 POC ABG pO2 ABG pO2 ABG HCO3 ABG O2 Saturation ABG Base Excess ABG Hemoglobin ABG Oxyhemoglobin ABG Potassium ABG Glucose Oxyhemoglobin Carboxyhemoglobin Sodium Potassium Chloride Carbon Dioxide BUN Creatinine Glucose POC Glucose 168 H 142 H 146 H Calcium Ferritin Total Bilirubin Alkaline Phosphatase Lactate Dehydrogenase Total Creatine Kinase CK-MB (CK-2) Rel Index Troponin T C-Reactive Protein Total Protein Albumin Prealbumin LDL Cholesterol Direct Arterial Blood Glucose Arterial Blood Ionized Calcium Urine WBC (Auto) 03/11/20 03/11/20 03/11/20 11:30 14:01 14:01 WBC 19.7 H RBC 3.04 L Hgb 8.7 L Hct 25.8 L MCV MCH RDW 15.6 H Plt Count Lymph % (Auto) Lymph # (Auto) [place] # (Auto) Seg Neutrophils % Seg Neuts % (Manual) Lymphocytes % (Manual) Monocytes % (Manual) Basophils % (Manual) Seg Neutrophils # Seg Neutrophils # Man Lymphocytes # (Manual) Monocytes # (Manual) Eosinophils # (Manual) Basophils # (Manual) PT INR D-Dimer ABG pH POC ABG pCO2 POC ABG pO2 ABG pO2 ABG HCO3 ABG O2 Saturation ABG Base Excess ABG Hemoglobin ABG Oxyhemoglobin ABG Potassium ABG Glucose Oxyhemoglobin Carboxyhemoglobin Sodium 151 H Potassium Chloride Carbon Dioxide 37 H BUN Creatinine < 0.2 L Glucose 171 H POC Glucose 248 H Calcium Ferritin Total Bilirubin Alkaline Phosphatase Lactate Dehydrogenase Total Creatine Kinase CK-MB (CK-2) Rel Index Troponin T C-Reactive Protein Total Protein Albumin Prealbumin LDL Cholesterol Direct Arterial Blood Glucose Arterial Blood Ionized Calcium Urine WBC (Auto) 03/11/20 03/11/20 03/12/20 17:09 23:52 04:39 WBC 19.9 H RBC 3.16 L Hgb 8.9 L Hct 27.5 L MCV MCH RDW 15.7 H Plt Count Lymph % (Auto) 6.8 L Lymph # (Auto) [place] # (Auto) 1.2 H Seg Neutrophils % 86.0 H Seg Neuts % (Manual) Lymphocytes % (Manual) Monocytes % (Manual) Basophils % (Manual) Seg Neutrophils # 17.1 H Seg Neutrophils # Man Lymphocytes # (Manual) Monocytes # (Manual) Eosinophils # (Manual) Basophils # (Manual) PT INR D-Dimer ABG pH POC ABG pCO2 POC ABG pO2 ABG pO2 ABG HCO3 ABG O2 Saturation ABG Base Excess ABG Hemoglobin ABG Oxyhemoglobin ABG Potassium ABG Glucose Oxyhemoglobin Carboxyhemoglobin Sodium Potassium Chloride Carbon Dioxide BUN Creatinine Glucose POC Glucose 124 H 131 H Calcium Ferritin Total Bilirubin Alkaline Phosphatase Lactate Dehydrogenase Total Creatine Kinase CK-MB (CK-2) Rel Index Troponin T C-Reactive Protein Total Protein Albumin Prealbumin LDL Cholesterol Direct Arterial Blood Glucose Arterial Blood Ionized Calcium Urine WBC (Auto) 03/12/20 03/12/20 03/12/20 04:39 05:28 11:34 WBC RBC Hgb Hct MCV MCH RDW Plt Count Lymph % (Auto) Lymph # (Auto) [place] # (Auto) Seg Neutrophils % Seg Neuts % (Manual) Lymphocytes % (Manual) Monocytes % (Manual) Basophils % (Manual) Seg Neutrophils # Seg Neutrophils # Man Lymphocytes # (Manual) Monocytes # (Manual) Eosinophils # (Manual) Basophils # (Manual) PT INR D-Dimer ABG pH POC ABG pCO2 POC ABG pO2 ABG pO2 ABG HCO3 ABG O2 Saturation ABG Base Excess ABG Hemoglobin ABG Oxyhemoglobin ABG Potassium ABG Glucose Oxyhemoglobin Carboxyhemoglobin Sodium 147 H Potassium Chloride Carbon Dioxide 40 H BUN Creatinine < 0.2 L Glucose 175 H POC Glucose 167 H 144 H Calcium Ferritin Total Bilirubin Alkaline Phosphatase Lactate Dehydrogenase Total Creatine Kinase CK-MB (CK-2) Rel Index Troponin T C-Reactive Protein Total Protein Albumin Prealbumin LDL Cholesterol Direct Arterial Blood Glucose Arterial Blood Ionized Calcium Urine WBC (Auto) 03/12/20 03/12/20 03/13/20 17:32 23:57 05:57 WBC RBC Hgb Hct MCV MCH RDW Plt Count Lymph % (Auto) Lymph # (Auto) [place] # (Auto) Seg Neutrophils % Seg Neuts % (Manual) Lymphocytes % (Manual) Monocytes % (Manual) Basophils % (Manual) Seg Neutrophils # Seg Neutrophils # Man Lymphocytes # (Manual) Monocytes # (Manual) Eosinophils # (Manual) Basophils # (Manual) PT INR D-Dimer ABG pH POC ABG pCO2 POC ABG pO2 ABG pO2 ABG HCO3 ABG O2 Saturation ABG Base Excess ABG Hemoglobin ABG Oxyhemoglobin ABG Potassium ABG Glucose Oxyhemoglobin Carboxyhemoglobin Sodium Potassium Chloride Carbon Dioxide BUN Creatinine Glucose POC Glucose 141 H 137 H 161 H Calcium Ferritin Total Bilirubin Alkaline Phosphatase Lactate Dehydrogenase Total Creatine Kinase CK-MB (CK-2) Rel Index Troponin T C-Reactive Protein Total Protein Albumin Prealbumin LDL Cholesterol Direct Arterial Blood Glucose Arterial Blood Ionized Calcium Urine WBC (Auto) 03/13/20 03/13/20 03/13/20 12:28 14:14 18:39 WBC RBC Hgb Hct MCV MCH RDW Plt Count Lymph % (Auto) Lymph # (Auto) [place] # (Auto) Seg Neutrophils % Seg Neuts % (Manual) Lymphocytes % (Manual) Monocytes % (Manual) Basophils % (Manual) Seg Neutrophils # Seg Neutrophils # Man Lymphocytes # (Manual) Monocytes # (Manual) Eosinophils # (Manual) Basophils # (Manual) PT INR D-Dimer ABG pH POC ABG pCO2 POC ABG pO2 ABG pO2 ABG HCO3 ABG O2 Saturation ABG Base Excess ABG Hemoglobin ABG Oxyhemoglobin ABG Potassium ABG Glucose Oxyhemoglobin Carboxyhemoglobin Sodium Potassium Chloride Carbon Dioxide 39 H BUN Creatinine < 0.2 L Glucose 129 H POC Glucose 130 H 125 H Calcium Ferritin Total Bilirubin Alkaline Phosphatase Lactate Dehydrogenase Total Creatine Kinase CK-MB (CK-2) Rel Index Troponin T C-Reactive Protein Total Protein Albumin Prealbumin LDL Cholesterol Direct Arterial Blood Glucose Arterial Blood Ionized Calcium Urine WBC (Auto) 03/13/20 03/14/20 03/14/20 23:33 05:24 08:07 WBC 16.8 H RBC 2.81 L Hgb 7.9 L Hct 23.9 L MCV MCH RDW 15.9 H Plt Count Lymph % (Auto) Lymph # (Auto) [place] # (Auto) Seg Neutrophils % Seg Neuts % (Manual) 84.0 H Lymphocytes % (Manual) 10.0 L Monocytes % (Manual) Basophils % (Manual) Seg Neutrophils # Seg Neutrophils # Man 14.1 H Lymphocytes # (Manual) Monocytes # (Manual) Eosinophils # (Manual) Basophils # (Manual) PT INR D-Dimer ABG pH POC ABG pCO2 POC ABG pO2 ABG pO2 ABG HCO3 ABG O2 Saturation ABG Base Excess ABG Hemoglobin ABG Oxyhemoglobin ABG Potassium ABG Glucose Oxyhemoglobin Carboxyhemoglobin Sodium Potassium Chloride Carbon Dioxide BUN Creatinine Glucose POC Glucose 146 H 125 H Calcium Ferritin Total Bilirubin Alkaline Phosphatase Lactate Dehydrogenase Total Creatine Kinase CK-MB (CK-2) Rel Index Troponin T C-Reactive Protein Total Protein Albumin Prealbumin LDL Cholesterol Direct Arterial Blood Glucose Arterial Blood Ionized Calcium Urine WBC (Auto) 03/14/20 03/14/20 03/14/20 08:07 12:21 18:26 WBC RBC Hgb Hct MCV MCH RDW Plt Count Lymph % (Auto) Lymph # (Auto) [place] # (Auto) Seg Neutrophils % Seg Neuts % (Manual) Lymphocytes % (Manual) Monocytes % (Manual) Basophils % (Manual) Seg Neutrophils # Seg Neutrophils # Man Lymphocytes # (Manual) Monocytes # (Manual) Eosinophils # (Manual) Basophils # (Manual) PT INR D-Dimer ABG pH POC ABG pCO2 POC ABG pO2 ABG pO2 ABG HCO3 ABG O2 Saturation ABG Base Excess ABG Hemoglobin ABG Oxyhemoglobin ABG Potassium ABG Glucose Oxyhemoglobin Carboxyhemoglobin Sodium Potassium Chloride 97.0 L Carbon Dioxide 37 H BUN Creatinine < 0.2 L Glucose 129 H POC Glucose 109 H 142 H Calcium 8.3 L Ferritin Total Bilirubin Alkaline Phosphatase Lactate Dehydrogenase Total Creatine Kinase CK-MB (CK-2) Rel Index Troponin T C-Reactive Protein Total Protein Albumin Prealbumin LDL Cholesterol Direct Arterial Blood Glucose Arterial Blood Ionized Calcium Urine WBC (Auto) 03/14/20 03/15/20 03/15/20 23:57 05:46 08:06 WBC 19.7 H RBC 3.29 L Hgb 9.1 L Hct 28.0 L MCV MCH RDW 15.9 H Plt Count Lymph % (Auto) Lymph # (Auto) [place] # (Auto) Seg Neutrophils % Seg Neuts % (Manual) Lymphocytes % (Manual) Monocytes % (Manual) Basophils % (Manual) Seg Neutrophils # Seg Neutrophils # Man Lymphocytes # (Manual) Monocytes # (Manual) Eosinophils # (Manual) Basophils # (Manual) PT INR D-Dimer ABG pH POC ABG pCO2 POC ABG pO2 ABG pO2 ABG HCO3 ABG O2 Saturation ABG Base Excess ABG Hemoglobin ABG Oxyhemoglobin ABG Potassium ABG Glucose Oxyhemoglobin Carboxyhemoglobin Sodium Potassium Chloride Carbon Dioxide BUN Creatinine Glucose POC Glucose 157 H 118 H Calcium Ferritin Total Bilirubin Alkaline Phosphatase Lactate Dehydrogenase Total Creatine Kinase CK-MB (CK-2) Rel Index Troponin T C-Reactive Protein Total Protein Albumin Prealbumin LDL Cholesterol Direct Arterial Blood Glucose Arterial Blood Ionized Calcium Urine WBC (Auto) 03/15/20 03/15/20 03/15/20 08:06 12:44 18:09 WBC RBC Hgb Hct MCV MCH RDW Plt Count Lymph % (Auto) Lymph # (Auto) [place] # (Auto) Seg Neutrophils % Seg Neuts % (Manual) Lymphocytes % (Manual) Monocytes % (Manual) Basophils % (Manual) Seg Neutrophils # Seg Neutrophils # Man Lymphocytes # (Manual) Monocytes # (Manual) Eosinophils # (Manual) Basophils # (Manual) PT INR D-Dimer ABG pH POC ABG pCO2 POC ABG pO2 ABG pO2 ABG HCO3 ABG O2 Saturation ABG Base Excess ABG Hemoglobin ABG Oxyhemoglobin ABG Potassium ABG Glucose Oxyhemoglobin Carboxyhemoglobin Sodium 136 L Potassium Chloride 93.6 L Carbon Dioxide 37 H BUN Creatinine < 0.2 L Glucose 132 H POC Glucose 151 H 164 H Calcium Ferritin Total Bilirubin Alkaline Phosphatase Lactate Dehydrogenase Total Creatine Kinase CK-MB (CK-2) Rel Index Troponin T C-Reactive Protein Total Protein Albumin Prealbumin LDL Cholesterol Direct Arterial Blood Glucose Arterial Blood Ionized Calcium Urine WBC (Auto) 03/15/20 03/16/20 03/16/20 23:26 05:39 11:58 WBC RBC Hgb Hct MCV MCH RDW Plt Count Lymph % (Auto) Lymph # (Auto) [place] # (Auto) Seg Neutrophils % Seg Neuts % (Manual) Lymphocytes % (Manual) Monocytes % (Manual) Basophils % (Manual) Seg Neutrophils # Seg Neutrophils # Man Lymphocytes # (Manual) Monocytes # (Manual) Eosinophils # (Manual) Basophils # (Manual) PT INR D-Dimer ABG pH POC ABG pCO2 POC ABG pO2 ABG pO2 ABG HCO3 ABG O2 Saturation ABG Base Excess ABG Hemoglobin ABG Oxyhemoglobin ABG Potassium ABG Glucose Oxyhemoglobin Carboxyhemoglobin Sodium Potassium Chloride Carbon Dioxide BUN Creatinine Glucose POC Glucose 136 H 116 H 109 H Calcium Ferritin Total Bilirubin Alkaline Phosphatase Lactate Dehydrogenase Total Creatine Kinase CK-MB (CK-2) Rel Index Troponin T C-Reactive Protein Total Protein Albumin Prealbumin LDL Cholesterol Direct Arterial Blood Glucose Arterial Blood Ionized Calcium Urine WBC (Auto) 03/16/20 03/17/20 03/17/20 23:56 04:40 04:40 WBC 18.0 H RBC 3.33 L Hgb 9.5 L Hct 28.8 L MCV MCH RDW 16.4 H Plt Count 499 H Lymph % (Auto) Lymph # (Auto) [place] # (Auto) Seg Neutrophils % Seg Neuts % (Manual) 82.0 H Lymphocytes % (Manual) 8.0 L Monocytes % (Manual) Basophils % (Manual) Seg Neutrophils # Seg Neutrophils # Man 14.8 H Lymphocytes # (Manual) Monocytes # (Manual) 1.3 H Eosinophils # (Manual) Basophils # (Manual) 0.2 H PT INR D-Dimer ABG pH POC ABG pCO2 POC ABG pO2 ABG pO2 ABG HCO3 ABG O2 Saturation ABG Base Excess ABG Hemoglobin ABG Oxyhemoglobin ABG Potassium ABG Glucose Oxyhemoglobin Carboxyhemoglobin Sodium Potassium Chloride 97.7 L Carbon Dioxide 32 H BUN Creatinine < 0.2 L Glucose 114 H POC Glucose 131 H Calcium Ferritin Total Bilirubin Alkaline Phosphatase Lactate Dehydrogenase Total Creatine Kinase CK-MB (CK-2) Rel Index Troponin T C-Reactive Protein Total Protein Albumin Prealbumin LDL Cholesterol Direct Arterial Blood Glucose Arterial Blood Ionized Calcium Urine WBC (Auto) 03/18/20 03/18/20 03/18/20 00:21 05:21 11:55 WBC RBC Hgb Hct MCV MCH RDW Plt Count Lymph % (Auto) Lymph # (Auto) [place] # (Auto) Seg Neutrophils % Seg Neuts % (Manual) Lymphocytes % (Manual) Monocytes % (Manual) Basophils % (Manual) Seg Neutrophils # Seg Neutrophils # Man Lymphocytes # (Manual) Monocytes # (Manual) Eosinophils # (Manual) Basophils # (Manual) PT INR D-Dimer ABG pH POC ABG pCO2 POC ABG pO2 ABG pO2 ABG HCO3 ABG O2 Saturation ABG Base Excess ABG Hemoglobin ABG Oxyhemoglobin ABG Potassium ABG Glucose Oxyhemoglobin Carboxyhemoglobin Sodium Potassium Chloride Carbon Dioxide BUN Creatinine Glucose POC Glucose 124 H 138 H 119 H Calcium Ferritin Total Bilirubin Alkaline Phosphatase Lactate Dehydrogenase Total Creatine Kinase CK-MB (CK-2) Rel Index Troponin T C-Reactive Protein Total Protein Albumin Prealbumin LDL Cholesterol Direct Arterial Blood Glucose Arterial Blood Ionized Calcium Urine WBC (Auto) 03/18/20 03/18/20 03/19/20 17:03 23:58 05:24 WBC RBC Hgb Hct MCV MCH RDW Plt Count Lymph % (Auto) Lymph # (Auto) [place] # (Auto) Seg Neutrophils % Seg Neuts % (Manual) Lymphocytes % (Manual) Monocytes % (Manual) Basophils % (Manual) Seg Neutrophils # Seg Neutrophils # Man Lymphocytes # (Manual) Monocytes # (Manual) Eosinophils # (Manual) Basophils # (Manual) PT INR D-Dimer ABG pH POC ABG pCO2 POC ABG pO2 ABG pO2 ABG HCO3 ABG O2 Saturation ABG Base Excess ABG Hemoglobin ABG Oxyhemoglobin ABG Potassium ABG Glucose Oxyhemoglobin Carboxyhemoglobin Sodium Potassium Chloride Carbon Dioxide BUN Creatinine Glucose POC Glucose 128 H 128 H 115 H Calcium Ferritin Total Bilirubin Alkaline Phosphatase Lactate Dehydrogenase Total Creatine Kinase CK-MB (CK-2) Rel Index Troponin T C-Reactive Protein Total Protein Albumin Prealbumin LDL Cholesterol Direct Arterial Blood Glucose Arterial Blood Ionized Calcium Urine WBC (Auto) 03/19/20 03/19/20 03/19/20 08:05 08:05 11:56 WBC 16.8 H RBC 3.36 L Hgb 9.4 L Hct 28.8 L MCV MCH RDW 17.4 H Plt Count 567 H Lymph % (Auto) 7.8 L Lymph # (Auto) [place] # (Auto) 1.2 H Seg Neutrophils % 83.5 H Seg Neuts % (Manual) Lymphocytes % (Manual) Monocytes % (Manual) Basophils % (Manual) Seg Neutrophils # 14.1 H Seg Neutrophils # Man Lymphocytes # (Manual) Monocytes # (Manual) Eosinophils # (Manual) Basophils # (Manual) PT INR D-Dimer ABG pH POC ABG pCO2 POC ABG pO2 ABG pO2 ABG HCO3 ABG O2 Saturation ABG Base Excess ABG Hemoglobin ABG Oxyhemoglobin ABG Potassium ABG Glucose Oxyhemoglobin Carboxyhemoglobin Sodium Potassium Chloride Carbon Dioxide 36 H BUN Creatinine < 0.2 L Glucose 135 H POC Glucose 128 H Calcium Ferritin Total Bilirubin Alkaline Phosphatase Lactate Dehydrogenase Total Creatine Kinase CK-MB (CK-2) Rel Index Troponin T C-Reactive Protein Total Protein Albumin Prealbumin LDL Cholesterol Direct Arterial Blood Glucose Arterial Blood Ionized Calcium Urine WBC (Auto) 03/19/20 03/20/20 03/20/20 23:59 05:12 16:52 WBC RBC Hgb Hct MCV MCH RDW Plt Count Lymph % (Auto) Lymph # (Auto) [place] # (Auto) Seg Neutrophils % Seg Neuts % (Manual) Lymphocytes % (Manual) Monocytes % (Manual) Basophils % (Manual) Seg Neutrophils # Seg Neutrophils # Man Lymphocytes # (Manual) Monocytes # (Manual) Eosinophils # (Manual) Basophils # (Manual) PT INR D-Dimer ABG pH POC ABG pCO2 POC ABG pO2 ABG pO2 ABG HCO3 ABG O2 Saturation ABG Base Excess ABG Hemoglobin ABG Oxyhemoglobin ABG Potassium ABG Glucose Oxyhemoglobin Carboxyhemoglobin Sodium Potassium Chloride Carbon Dioxide BUN Creatinine Glucose POC Glucose 120 H 131 H 124 H Calcium Ferritin Total Bilirubin Alkaline Phosphatase Lactate Dehydrogenase Total Creatine Kinase CK-MB (CK-2) Rel Index Troponin T C-Reactive Protein Total Protein Albumin Prealbumin LDL Cholesterol Direct Arterial Blood Glucose Arterial Blood Ionized Calcium Urine WBC (Auto) 03/20/20 03/21/20 03/21/20 23:35 04:50 07:35 WBC 15.2 H RBC 3.39 L Hgb 9.4 L Hct 29.4 L MCV MCH RDW 17.6 H Plt Count 518 H Lymph % (Auto) Lymph # (Auto) [place] # (Auto) Seg Neutrophils % Seg Neuts % (Manual) 83.0 H Lymphocytes % (Manual) 10.0 L Monocytes % (Manual) Basophils % (Manual) 2.0 H Seg Neutrophils # Seg Neutrophils # Man 12.6 H Lymphocytes # (Manual) Monocytes # (Manual) Eosinophils # (Manual) Basophils # (Manual) 0.3 H PT INR D-Dimer ABG pH POC ABG pCO2 POC ABG pO2 ABG pO2 ABG HCO3 ABG O2 Saturation ABG Base Excess ABG Hemoglobin ABG Oxyhemoglobin ABG Potassium ABG Glucose Oxyhemoglobin Carboxyhemoglobin Sodium Potassium Chloride Carbon Dioxide BUN Creatinine Glucose POC Glucose 125 H 127 H Calcium Ferritin Total Bilirubin Alkaline Phosphatase Lactate Dehydrogenase Total Creatine Kinase CK-MB (CK-2) Rel Index Troponin T C-Reactive Protein Total Protein Albumin Prealbumin LDL Cholesterol Direct Arterial Blood Glucose Arterial Blood Ionized Calcium Urine WBC (Auto) 03/21/20 03/21/20 03/21/20 07:35 11:45 17:22 WBC RBC Hgb Hct MCV MCH RDW Plt Count Lymph % (Auto) Lymph # (Auto) [place] # (Auto) Seg Neutrophils % Seg Neuts % (Manual) Lymphocytes % (Manual) Monocytes % (Manual) Basophils % (Manual) Seg Neutrophils # Seg Neutrophils # Man Lymphocytes # (Manual) Monocytes # (Manual) Eosinophils # (Manual) Basophils # (Manual) PT INR D-Dimer ABG pH POC ABG pCO2 POC ABG pO2 ABG pO2 ABG HCO3 ABG O2 Saturation ABG Base Excess ABG Hemoglobin ABG Oxyhemoglobin ABG Potassium ABG Glucose Oxyhemoglobin Carboxyhemoglobin Sodium 136 L Potassium Chloride 97.7 L Carbon Dioxide 32 H BUN Creatinine < 0.2 L Glucose 103 H POC Glucose 126 H 120 H Calcium Ferritin Total Bilirubin Alkaline Phosphatase Lactate Dehydrogenase Total Creatine Kinase CK-MB (CK-2) Rel Index Troponin T C-Reactive Protein Total Protein Albumin Prealbumin LDL Cholesterol Direct Arterial Blood Glucose Arterial Blood Ionized Calcium Urine WBC (Auto) 03/22/20 03/22/20 03/22/20 05:09 06:34 06:34 WBC 17.5 H RBC 3.52 L Hgb 10.0 L Hct 30.7 L MCV MCH RDW 17.5 H Plt Count 499 H Lymph % (Auto) Lymph # (Auto) [place] # (Auto) Seg Neutrophils % Seg Neuts % (Manual) 80.0 H Lymphocytes % (Manual) 10.0 L Monocytes % (Manual) Basophils % (Manual) Seg Neutrophils # Seg Neutrophils # Man 14.0 H Lymphocytes # (Manual) Monocytes # (Manual) Eosinophils # (Manual) Basophils # (Manual) PT INR D-Dimer ABG pH POC ABG pCO2 POC ABG pO2 ABG pO2 ABG HCO3 ABG O2 Saturation ABG Base Excess ABG Hemoglobin ABG Oxyhemoglobin ABG Potassium ABG Glucose Oxyhemoglobin Carboxyhemoglobin Sodium Potassium Chloride 96.6 L Carbon Dioxide 38 H BUN Creatinine < 0.2 L Glucose 139 H POC Glucose 125 H Calcium Ferritin Total Bilirubin Alkaline Phosphatase Lactate Dehydrogenase Total Creatine Kinase CK-MB (CK-2) Rel Index Troponin T C-Reactive Protein Total Protein Albumin Prealbumin LDL Cholesterol Direct Arterial Blood Glucose Arterial Blood Ionized Calcium Urine WBC (Auto) 03/22/20 03/22/20 03/22/20 11:45 18:00 23:32 WBC RBC Hgb Hct MCV MCH RDW Plt Count Lymph % (Auto) Lymph # (Auto) [place] # (Auto) Seg Neutrophils % Seg Neuts % (Manual) Lymphocytes % (Manual) Monocytes % (Manual) Basophils % (Manual) Seg Neutrophils # Seg Neutrophils # Man Lymphocytes # (Manual) Monocytes # (Manual) Eosinophils # (Manual) Basophils # (Manual) PT INR D-Dimer ABG pH POC ABG pCO2 POC ABG pO2 ABG pO2 ABG HCO3 ABG O2 Saturation ABG Base Excess ABG Hemoglobin ABG Oxyhemoglobin ABG Potassium ABG Glucose Oxyhemoglobin Carboxyhemoglobin Sodium Potassium Chloride Carbon Dioxide BUN Creatinine Glucose POC Glucose 135 H 133 H Calcium Ferritin Total Bilirubin Alkaline Phosphatase Lactate Dehydrogenase Total Creatine Kinase CK-MB (CK-2) Rel Index Troponin T 0.113 H* C-Reactive Protein Total Protein Albumin Prealbumin LDL Cholesterol Direct Arterial Blood Glucose Arterial Blood Ionized Calcium Urine WBC (Auto) 03/23/20 03/23/20 03/23/20 01:47 06:21 07:57 WBC RBC Hgb Hct MCV MCH RDW Plt Count Lymph % (Auto) Lymph # (Auto) [place] # (Auto) Seg Neutrophils % Seg Neuts % (Manual) Lymphocytes % (Manual) Monocytes % (Manual) Basophils % (Manual) Seg Neutrophils # Seg Neutrophils # Man Lymphocytes # (Manual) Monocytes # (Manual) Eosinophils # (Manual) Basophils # (Manual) PT INR D-Dimer ABG pH POC ABG pCO2 POC ABG pO2 ABG pO2 ABG HCO3 ABG O2 Saturation ABG Base Excess ABG Hemoglobin ABG Oxyhemoglobin ABG Potassium ABG Glucose Oxyhemoglobin Carboxyhemoglobin Sodium Potassium Chloride Carbon Dioxide BUN Creatinine Glucose POC Glucose 130 H Calcium Ferritin Total Bilirubin Alkaline Phosphatase Lactate Dehydrogenase Total Creatine Kinase CK-MB (CK-2) Rel Index Troponin T 0.143 H* D 0.105 H* D C-Reactive Protein Total Protein Albumin Prealbumin LDL Cholesterol Direct Arterial Blood Glucose Arterial Blood Ionized Calcium Urine WBC (Auto) 03/23/20 03/24/20 03/24/20 12:02 05:33 07:15 WBC 18.0 H RBC Hgb 11.0 L Hct 34.0 L MCV MCH RDW 17.4 H Plt Count 520 H Lymph % (Auto) Lymph # (Auto) [place] # (Auto) Seg Neutrophils % Seg Neuts % (Manual) 88.0 H Lymphocytes % (Manual) 7.0 L Monocytes % (Manual) Basophils % (Manual) Seg Neutrophils # Seg Neutrophils # Man 15.8 H Lymphocytes # (Manual) Monocytes # (Manual) Eosinophils # (Manual) Basophils # (Manual) PT INR D-Dimer ABG pH POC ABG pCO2 POC ABG pO2 ABG pO2 ABG HCO3 ABG O2 Saturation ABG Base Excess ABG Hemoglobin ABG Oxyhemoglobin ABG Potassium ABG Glucose Oxyhemoglobin Carboxyhemoglobin Sodium Potassium Chloride Carbon Dioxide BUN Creatinine Glucose POC Glucose 137 H 112 H Calcium Ferritin Total Bilirubin Alkaline Phosphatase Lactate Dehydrogenase Total Creatine Kinase CK-MB (CK-2) Rel Index Troponin T C-Reactive Protein Total Protein Albumin Prealbumin LDL Cholesterol Direct Arterial Blood Glucose Arterial Blood Ionized Calcium Urine WBC (Auto) 03/24/20 03/24/20 03/24/20 07:15 11:22 23:30 WBC RBC Hgb Hct MCV MCH RDW Plt Count Lymph % (Auto) Lymph # (Auto) [place] # (Auto) Seg Neutrophils % Seg Neuts % (Manual) Lymphocytes % (Manual) Monocytes % (Manual) Basophils % (Manual) Seg Neutrophils # Seg Neutrophils # Man Lymphocytes # (Manual) Monocytes # (Manual) Eosinophils # (Manual) Basophils # (Manual) PT INR D-Dimer ABG pH POC ABG pCO2 POC ABG pO2 ABG pO2 ABG HCO3 ABG O2 Saturation ABG Base Excess ABG Hemoglobin ABG Oxyhemoglobin ABG Potassium ABG Glucose Oxyhemoglobin Carboxyhemoglobin Sodium Potassium Chloride 96.6 L Carbon Dioxide 38 H BUN Creatinine < 0.2 L Glucose 141 H POC Glucose 130 H 120 H Calcium Ferritin Total Bilirubin Alkaline Phosphatase Lactate Dehydrogenase Total Creatine Kinase CK-MB (CK-2) Rel Index Troponin T C-Reactive Protein Total Protein Albumin Prealbumin LDL Cholesterol Direct Arterial Blood Glucose Arterial Blood Ionized Calcium Urine WBC (Auto) 03/25/20 03/25/20 03/25/20 05:48 17:53 23:18 WBC RBC Hgb Hct MCV MCH RDW Plt Count Lymph % (Auto) Lymph # (Auto) [place] # (Auto) Seg Neutrophils % Seg Neuts % (Manual) Lymphocytes % (Manual) Monocytes % (Manual) Basophils % (Manual) Seg Neutrophils # Seg Neutrophils # Man Lymphocytes # (Manual) Monocytes # (Manual) Eosinophils # (Manual) Basophils # (Manual) PT INR D-Dimer ABG pH POC ABG pCO2 POC ABG pO2 ABG pO2 ABG HCO3 ABG O2 Saturation ABG Base Excess ABG Hemoglobin ABG Oxyhemoglobin ABG Potassium ABG Glucose Oxyhemoglobin Carboxyhemoglobin Sodium Potassium Chloride Carbon Dioxide BUN Creatinine Glucose POC Glucose 124 H 109 H 131 H Calcium Ferritin Total Bilirubin Alkaline Phosphatase Lactate Dehydrogenase Total Creatine Kinase CK-MB (CK-2) Rel Index Troponin T C-Reactive Protein Total Protein Albumin Prealbumin LDL Cholesterol Direct Arterial Blood Glucose Arterial Blood Ionized Calcium Urine WBC (Auto) 03/26/20 03/26/20 03/26/20 05:21 08:49 08:49 WBC 19.7 H RBC Hgb 10.7 L Hct 33.5 L MCV MCH 27 L RDW 17.1 H Plt Count 480 H Lymph % (Auto) 5.7 L Lymph # (Auto) 1.1 L [place] # (Auto) 1.2 H Seg Neutrophils % 87.7 H Seg Neuts % (Manual) Lymphocytes % (Manual) Monocytes % (Manual) Basophils % (Manual) Seg Neutrophils # 17.2 H Seg Neutrophils # Man Lymphocytes # (Manual) Monocytes # (Manual) Eosinophils # (Manual) Basophils # (Manual) PT INR D-Dimer ABG pH POC ABG pCO2 POC ABG pO2 ABG pO2 ABG HCO3 ABG O2 Saturation ABG Base Excess ABG Hemoglobin ABG Oxyhemoglobin ABG Potassium ABG Glucose Oxyhemoglobin Carboxyhemoglobin Sodium Potassium Chloride 97.2 L Carbon Dioxide 36 H BUN Creatinine < 0.2 L Glucose 127 H POC Glucose 116 H Calcium Ferritin Total Bilirubin Alkaline Phosphatase Lactate Dehydrogenase Total Creatine Kinase CK-MB (CK-2) Rel Index Troponin T C-Reactive Protein Total Protein Albumin Prealbumin LDL Cholesterol Direct Arterial Blood Glucose Arterial Blood Ionized Calcium Urine WBC (Auto) 03/26/20 03/26/20 03/26/20 11:38 18:44 23:06 WBC RBC Hgb Hct MCV MCH RDW Plt Count Lymph % (Auto) Lymph # (Auto) [place] # (Auto) Seg Neutrophils % Seg Neuts % (Manual) Lymphocytes % (Manual) Monocytes % (Manual) Basophils % (Manual) Seg Neutrophils # Seg Neutrophils # Man Lymphocytes # (Manual) Monocytes # (Manual) Eosinophils # (Manual) Basophils # (Manual) PT INR D-Dimer ABG pH POC ABG pCO2 POC ABG pO2 ABG pO2 ABG HCO3 ABG O2 Saturation ABG Base Excess ABG Hemoglobin ABG Oxyhemoglobin ABG Potassium ABG Glucose Oxyhemoglobin Carboxyhemoglobin Sodium Potassium Chloride Carbon Dioxide BUN Creatinine Glucose POC Glucose 120 H 111 H 134 H Calcium Ferritin Total Bilirubin Alkaline Phosphatase Lactate Dehydrogenase Total Creatine Kinase CK-MB (CK-2) Rel Index Troponin T C-Reactive Protein Total Protein Albumin Prealbumin LDL Cholesterol Direct Arterial Blood Glucose Arterial Blood Ionized Calcium Urine WBC (Auto) 03/27/20 03/27/20 03/27/20 05:41 05:59 05:59 WBC 18.6 H RBC Hgb 10.1 L Hct 31.4 L MCV MCH RDW 17.2 H Plt Count Lymph % (Auto) 8.0 L Lymph # (Auto) [place] # (Auto) 1.2 H Seg Neutrophils % 84.7 H Seg Neuts % (Manual) Lymphocytes % (Manual) Monocytes % (Manual) Basophils % (Manual) Seg Neutrophils # 15.8 H Seg Neutrophils # Man Lymphocytes # (Manual) Monocytes # (Manual) Eosinophils # (Manual) Basophils # (Manual) PT INR D-Dimer ABG pH POC ABG pCO2 POC ABG pO2 ABG pO2 ABG HCO3 ABG O2 Saturation ABG Base Excess ABG Hemoglobin ABG Oxyhemoglobin ABG Potassium ABG Glucose Oxyhemoglobin Carboxyhemoglobin Sodium Potassium Chloride Carbon Dioxide 34 H BUN Creatinine < 0.2 L Glucose 127 H POC Glucose 129 H Calcium Ferritin Total Bilirubin Alkaline Phosphatase Lactate Dehydrogenase Total Creatine Kinase CK-MB (CK-2) Rel Index Troponin T C-Reactive Protein Total Protein Albumin Prealbumin LDL Cholesterol Direct Arterial Blood Glucose Arterial Blood Ionized Calcium Urine WBC (Auto) 03/27/20 03/27/20 03/28/20 17:28 23:22 05:23 WBC RBC Hgb Hct MCV MCH RDW Plt Count Lymph % (Auto) Lymph # (Auto) [place] # (Auto) Seg Neutrophils % Seg Neuts % (Manual) Lymphocytes % (Manual) Monocytes % (Manual) Basophils % (Manual) Seg Neutrophils # Seg Neutrophils # Man Lymphocytes # (Manual) Monocytes # (Manual) Eosinophils # (Manual) Basophils # (Manual) PT INR D-Dimer ABG pH POC ABG pCO2 POC ABG pO2 ABG pO2 ABG HCO3 ABG O2 Saturation ABG Base Excess ABG Hemoglobin ABG Oxyhemoglobin ABG Potassium ABG Glucose Oxyhemoglobin Carboxyhemoglobin Sodium Potassium Chloride Carbon Dioxide BUN Creatinine Glucose POC Glucose 108 H 119 H 129 H Calcium Ferritin Total Bilirubin Alkaline Phosphatase Lactate Dehydrogenase Total Creatine Kinase CK-MB (CK-2) Rel Index Troponin T C-Reactive Protein Total Protein Albumin Prealbumin LDL Cholesterol Direct Arterial Blood Glucose Arterial Blood Ionized Calcium Urine WBC (Auto) 03/28/20 03/28/20 03/28/20 10:28 10:28 11:36 WBC 23.6 H RBC 3.62 L Hgb 10.0 L Hct 30.8 L MCV MCH RDW 16.4 H Plt Count Lymph % (Auto) Lymph # (Auto) [place] # (Auto) Seg Neutrophils % Seg Neuts % (Manual) 89.0 H Lymphocytes % (Manual) 5.0 L Monocytes % (Manual) Basophils % (Manual) Seg Neutrophils # Seg Neutrophils # Man 21.0 H Lymphocytes # (Manual) Monocytes # (Manual) 1.2 H Eosinophils # (Manual) Basophils # (Manual) 0.2 H PT INR D-Dimer ABG pH POC ABG pCO2 POC ABG pO2 ABG pO2 ABG HCO3 ABG O2 Saturation ABG Base Excess ABG Hemoglobin ABG Oxyhemoglobin ABG Potassium ABG Glucose Oxyhemoglobin Carboxyhemoglobin Sodium 134 L Potassium Chloride 94.2 L Carbon Dioxide 35 H BUN Creatinine < 0.2 L Glucose 134 H POC Glucose Calcium Ferritin Total Bilirubin Alkaline Phosphatase Lactate Dehydrogenase Total Creatine Kinase CK-MB (CK-2) Rel Index Troponin T C-Reactive Protein Total Protein Albumin Prealbumin LDL Cholesterol Direct Arterial Blood Glucose Arterial Blood Ionized Calcium Urine WBC (Auto) 39.0 H 03/28/20 03/28/20 03/28/20 11:51 17:08 17:17 WBC RBC Hgb Hct MCV MCH RDW Plt Count Lymph % (Auto) Lymph # (Auto) [place] # (Auto) Seg Neutrophils % Seg Neuts % (Manual) Lymphocytes % (Manual) Monocytes % (Manual) Basophils % (Manual) Seg Neutrophils # Seg Neutrophils # Man Lymphocytes # (Manual) Monocytes # (Manual) Eosinophils # (Manual) Basophils # (Manual) PT INR D-Dimer ABG pH POC ABG pCO2 POC ABG pO2 ABG pO2 ABG HCO3 ABG O2 Saturation ABG Base Excess ABG Hemoglobin ABG Oxyhemoglobin ABG Potassium ABG Glucose Oxyhemoglobin Carboxyhemoglobin Sodium Potassium Chloride Carbon Dioxide BUN Creatinine Glucose POC Glucose 123 H 112 H Calcium Ferritin Total Bilirubin Alkaline Phosphatase Lactate Dehydrogenase Total Creatine Kinase 47 L CK-MB (CK-2) Rel Index 4.6 H Troponin T 0.090 H C-Reactive Protein Total Protein Albumin Prealbumin LDL Cholesterol Direct Arterial Blood Glucose Arterial Blood Ionized Calcium Urine WBC (Auto) 03/28/20 03/29/20 03/29/20 23:22 05:22 10:58 WBC RBC Hgb Hct MCV MCH RDW Plt Count Lymph % (Auto) Lymph # (Auto) [place] # (Auto) Seg Neutrophils % Seg Neuts % (Manual) Lymphocytes % (Manual) Monocytes % (Manual) Basophils % (Manual) Seg Neutrophils # Seg Neutrophils # Man Lymphocytes # (Manual) Monocytes # (Manual) Eosinophils # (Manual) Basophils # (Manual) PT INR D-Dimer ABG pH POC ABG pCO2 POC ABG pO2 ABG pO2 ABG HCO3 ABG O2 Saturation ABG Base Excess ABG Hemoglobin ABG Oxyhemoglobin ABG Potassium ABG Glucose Oxyhemoglobin Carboxyhemoglobin Sodium Potassium Chloride Carbon Dioxide BUN Creatinine Glucose POC Glucose 122 H 116 H 133 H Calcium Ferritin Total Bilirubin Alkaline Phosphatase Lactate Dehydrogenase Total Creatine Kinase CK-MB (CK-2) Rel Index Troponin T C-Reactive Protein Total Protein Albumin Prealbumin LDL Cholesterol Direct Arterial Blood Glucose Arterial Blood Ionized Calcium Urine WBC (Auto) 03/29/20 03/29/20 03/30/20 17:18 23:14 04:57 WBC RBC Hgb Hct MCV MCH RDW Plt Count Lymph % (Auto) Lymph # (Auto) [place] # (Auto) Seg Neutrophils % Seg Neuts % (Manual) Lymphocytes % (Manual) Monocytes % (Manual) Basophils % (Manual) Seg Neutrophils # Seg Neutrophils # Man Lymphocytes # (Manual) Monocytes # (Manual) Eosinophils # (Manual) Basophils # (Manual) PT INR D-Dimer ABG pH POC ABG pCO2 POC ABG pO2 ABG pO2 ABG HCO3 ABG O2 Saturation ABG Base Excess ABG Hemoglobin ABG Oxyhemoglobin ABG Potassium ABG Glucose Oxyhemoglobin Carboxyhemoglobin Sodium Potassium Chloride Carbon Dioxide BUN Creatinine Glucose POC Glucose 111 H 114 H 130 H Calcium Ferritin Total Bilirubin Alkaline Phosphatase Lactate Dehydrogenase Total Creatine Kinase CK-MB (CK-2) Rel Index Troponin T C-Reactive Protein Total Protein Albumin Prealbumin LDL Cholesterol Direct Arterial Blood Glucose Arterial Blood Ionized Calcium Urine WBC (Auto) 03/30/20 11:38 WBC RBC Hgb Hct MCV MCH RDW Plt Count Lymph % (Auto) Lymph # (Auto) [place] # (Auto) Seg Neutrophils % Seg Neuts % (Manual) Lymphocytes % (Manual) Monocytes % (Manual) Basophils % (Manual) Seg Neutrophils # Seg Neutrophils # Man Lymphocytes # (Manual) Monocytes # (Manual) Eosinophils # (Manual) Basophils # (Manual) PT INR D-Dimer ABG pH POC ABG pCO2 POC ABG pO2 ABG pO2 ABG HCO3 ABG O2 Saturation ABG Base Excess ABG Hemoglobin ABG Oxyhemoglobin ABG Potassium ABG Glucose Oxyhemoglobin Carboxyhemoglobin Sodium Potassium Chloride Carbon Dioxide BUN Creatinine Glucose POC Glucose 139 H Calcium Ferritin Total Bilirubin Alkaline Phosphatase Lactate Dehydrogenase Total Creatine Kinase CK-MB (CK-2) Rel Index Troponin T C-Reactive Protein Total Protein Albumin Prealbumin LDL Cholesterol Direct Arterial Blood Glucose Arterial Blood Ionized Calcium Urine WBC (Auto) Allied health notes reviewed: nursing
[2020-03-30] MEDS: ALPRAZolam 0.5 MG TAB PO PRN (14:32)
[2020-03-30 15:08] LABS: Basophils % (Auto) 0.2 % (0.0-1.8); Eosinophils % (Auto) 0.1 % (0.0-4.3); Hematocrit 34.4 % (35.5-45.6); Hemoglobin 10.9 gm/dl (11.8-15.2); Lymphocytes # (Auto) 1.3 K/mm3 (1.2-5.4); Lymphocytes % (Auto) 6.4 % (13.4-35.0); Mean Corpuscular HGB Conc 32 % (32-34); Mean Corpuscular Volume 86 fl (84-94); Monocytes # (Auto) 1.4 K/mm3 (0.0-0.8); Monocytes % (Auto) 7.2 % (0.0-7.3); Platelet Count 441 K/mm3 (140-440); Red Blood Count 4.01 M/mm3 (3.65-5.03); Red Cell Distribution Width 16.5 % (13.2-15.2)
[2020-03-30 15:19] LABS: Alanine Aminotransferase 16 units/L (7-56); Albumin 2.8 g/dL (3.9-5); Blood Urea Nitrogen 16 mg/dL (9-20); Calcium 9.1 mg/dL (8.4-10.2); Hemolysis Index 50
[2020-03-30 15:20] LABS: BUN/Creatinine Ratio 80
[2020-03-30] MEDS ORDERED: HALOPERIDOL LACTATE 5 MG/1 ML INJ IV STA (15:36)
[2020-03-30] MEDS ORDERED: SODIUM CHLORIDE 0.9% 1000 ML 1,000 ML IV SCH (16:15)
[2020-03-30] MEDS ORDERED: SODIUM CHLORIDE 0.9% 1000 ML 1,000 ML ONE (16:16)
[2020-03-30] MEDS: ENOXAPARIN 40 MG/0.4 ML INJ SUB-Q SCH (21:20)
[2020-03-30] MEDS ORDERED: ZOLPIDEM 5 MG TAB PO SCH (22:00)
[2020-03-31] MEDS: MORPHINE 2 MG/1 ML INJ IV PRN ×3 (03:38→19:12)
[2020-03-31] MEDS: GLYCOPYRROLATE 1 MG TAB PO SCH ×3 (08:22→20:59)
[2020-03-31] MEDS: METOPROLOL TARTRATE 25 MG TAB PO SCH ×2 (09:22→20:59)
[2020-03-31] MEDS: TAMSULOSIN 0.4 MG CAP PO SCH (09:22)
[2020-03-31] MEDS: LANSOPRAZOLE 30 MG SOLUTAB FEEDTUBE SCH (09:23)
[2020-03-31] MEDS: LIDOCAINE 5% 1 EACH PATCH TD SCH (10:26)
[2020-03-31] MEDS: SODIUM HYPOCHLORITE, DAKIN'S 1/2 STRENGTH (0.25%) 473 ML TOPICAL SOLN TP SCH ×2 (13:00→20:59)
--- NOTE | 2020-03-31 15:24 | Progress Note ---
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 personal disease case manager rn" - continue to rest on AC overnight for now - continue to optimize electrolytes (prn BMP, Mg & PO4) - repeat CXR prn +/- bronchoscopy for mucus plugging / large volume atelectasis - continue to rest on AC qhs - LTAC evaluation is appropriate - continue Robinul & scopolamine for secretion control - prn electrolytes and optimize K+ & Mg 2+ for best respiratory muscle function - wound care per RN/WCN - continue Scopolamine patch for secretion control - wean supplemental oxygen for target O2 sat's > 92% acutely - bronchodilators with pulmonary hygiene per RT - VAP bundle addressed - continue lung protective strategies - continue bronchodilators with pulmonary hygiene per RT - wean per pulmonary driven protocols otherwise - sedation prn for target RASS 0 to -1 - s/p empiric antiinfectives per ID rec's (Rocephin and Zithromax) - s/p COVID-19 isolation (Airborne & Contact) - empiric Dexamethasone - follow COVID-19 test results (negative) - trend inflammatory markers to aid clinical decision making - enteral nutrition at goal rate as tolerated - Aspiration precautions - accuchecks with glycemic control per SSI (While critically ill target blood glucose of 140-180 mg/dL; avoid hypoglycemia) - avoid nephrotoxins, renally dose all medications - avoid benzodiazepine's, reduce the possibility of delirium - prn analgesia per CPOT score - Maintenance of sleep-wake cycle, avoid delirium - aspiration precautions - G.I. & VTE prophylaxis - PT/OT/ROM exercises - mobility protocols for pressure ulcer prophylaxis - Monitor hemodynamics closely - continue other care per attending / other consultants - discharge planning ongoing concurrently .... Re-evaluate in am & prn CONDITION: CRITICAL PROGNOSIS: GUARDED CODE STATUS: FULL CODE The high probability of a clinically significant, sudden or life-threatening deterioration of the [respiratory, cardiovascular & neurologic] system(s) required my full and direct attention, intervention and personal management. The aggregate critical care time was [33] minutes without overlap. Time includes spent on; [x] Data Review and interpretation [x] Patient assessment and monitoring of vital signs [x] Documentation [x] Medication orders and management Subjective Date of service: 03/31/20 Principal diagnosis: Ac on Ch Hypercapnic & hypoxemic Resp Failure; Severe Sepsis; Jamar PNA; ALS Interval history: Patient is seen today for: Acute on Chronic Hypercapnic & hypoxemic Respiratory Failure; Severe Sepsis with Shock; Bilateral Pneumonia (Possible aspiration); History of ALS on Trilogy; PUI-COVID; Acute toxic metabolic encephalopathy Seen and examined at bedside; 24hour events reviewed; nursing and respiratory care staff consulted; no adverse overnight events reported to me; resting in bed; remains on MVS; resting in bed; treated for lower back pain; No N/V/F/C Objective Vital Signs - 12hr 03/31/20 03/31/20 03/31/20 03:30 03:32 03:45 Temperature 99.8 F H Pulse Rate 109 H 113 H Pulse Rate [ From Monitor] Respiratory 17 Rate Blood Pressure 110/73 110/73 O2 Sat by Pulse 99 97 Oximetry O2 Sat by Pulse Oximetry [ Assessment] 03/31/20 03/31/20 03/31/20 04:00 04:15 04:30 Temperature Pulse Rate 110 H 109 H 93 H Pulse Rate [ 110 H From Monitor] Respiratory 17 13 10 L Rate Blood Pressure 108/70 108/70 117/67 O2 Sat by Pulse 96 96 Oximetry O2 Sat by Pulse 97 Oximetry [ Assessment] 03/31/20 03/31/20 03/31/20 04:45 05:00 05:16 Temperature Pulse Rate 102 H 115 H 97 H Pulse Rate [ From Monitor] Respiratory 13 23 14 Rate Blood Pressure 117/67 122/73 122/73 O2 Sat by Pulse 98 96 98 Oximetry O2 Sat by Pulse Oximetry [ Assessment] 03/31/20 03/31/20 03/31/20 05:30 05:45 06:00 Temperature Pulse Rate 98 H 98 H 103 H Pulse Rate [ From Monitor] Respiratory 13 16 14 Rate Blood Pressure 103/66 122/73 106/67 O2 Sat by Pulse 98 99 Oximetry O2 Sat by Pulse Oximetry [ Assessment] 03/31/20 03/31/20 03/31/20 06:15 06:30 06:45 Temperature Pulse Rate 109 H 109 H 104 H Pulse Rate [ From Monitor] Respiratory 15 17 17 Rate Blood Pressure 106/67 101/63 101/63 O2 Sat by Pulse 99 98 98 Oximetry O2 Sat by Pulse Oximetry [ Assessment] 03/31/20 03/31/20 03/31/20 07:00 07:15 07:30 Temperature Pulse Rate 105 H 108 H 106 H Pulse Rate [ From Monitor] Respiratory 17 17 15 Rate Blood Pressure 93/62 93/62 98/63 O2 Sat by Pulse 100 98 Oximetry O2 Sat by Pulse Oximetry [ Assessment] 03/31/20 03/31/20 03/31/20 07:45 08:00 08:15 Temperature Pulse Rate 108 H 106 H 115 H Pulse Rate [ 110 H From Monitor] Respiratory 18 17 17 Rate Blood Pressure 98/63 102/65 98/63 O2 Sat by Pulse 100 96 99 Oximetry O2 Sat by Pulse Oximetry [ Assessment] 03/31/20 03/31/20 03/31/20 08:30 08:45 09:00 Temperature Pulse Rate 106 H 115 H 116 H Pulse Rate [ From Monitor] Respiratory 18 16 16 Rate Blood Pressure 98/62 98/62 108/70 O2 Sat by Pulse 100 99 98 Oximetry O2 Sat by Pulse Oximetry [ Assessment] 03/31/20 03/31/20 03/31/20 09:15 09:22 09:30 Temperature Pulse Rate 115 H 113 H 111 H Pulse Rate [ From Monitor] Respiratory 21 19 Rate Blood Pressure 108/70 108/70 111/72 O2 Sat by Pulse 92 98 Oximetry O2 Sat by Pulse Oximetry [ Assessment] 03/31/20 03/31/20 03/31/20 09:32 09:34 09:45 Temperature Pulse Rate 114 H 114 H 108 H Pulse Rate [ From Monitor] Respiratory 23 24 Rate Blood Pressure 111/72 111/72 111/72 O2 Sat by Pulse 99 99 98 Oximetry O2 Sat by Pulse Oximetry [ Assessment] 03/31/20 03/31/20 03/31/20 10:01 10:15 10:30 Temperature Pulse Rate 109 H 108 H 111 H Pulse Rate [ From Monitor] Respiratory 34 H 14 18 Rate Blood Pressure 168/98 168/98 117/78 O2 Sat by Pulse 87 100 98 Oximetry O2 Sat by Pulse Oximetry [ Assessment] 03/31/20 03/31/20 03/31/20 10:45 11:00 11:15 Temperature Pulse Rate 107 H 115 H 116 H Pulse Rate [ From Monitor] Respiratory 19 Rate Blood Pressure 117/78 133/93 133/93 O2 Sat by Pulse 98 98 89 Oximetry O2 Sat by Pulse Oximetry [ Assessment] 03/31/20 03/31/20 03/31/20 11:30 11:45 12:00 Temperature Pulse Rate 116 H 112 H 116 H Pulse Rate [ 109 H From Monitor] Respiratory 17 Rate Blood Pressure 129/85 129/85 129/89 O2 Sat by Pulse 94 96 Oximetry O2 Sat by Pulse Oximetry [ Assessment] 03/31/20 03/31/20 03/31/20 12:15 12:30 12:45 Temperature Pulse Rate 116 H 108 H 113 H Pulse Rate [ From Monitor] Respiratory Rate Blood Pressure 129/89 133/86 133/86 O2 Sat by Pulse 97 97 97 Oximetry O2 Sat by Pulse Oximetry [ Assessment] 03/31/20 03/31/20 03/31/20 13:00 13:15 13:30 Temperature Pulse Rate 115 H 116 H 115 H Pulse Rate [ From Monitor] Respiratory Rate Blood Pressure 134/86 134/86 138/90 O2 Sat by Pulse 97 98 94 Oximetry O2 Sat by Pulse Oximetry [ Assessment] 03/31/20 03/31/20 03/31/20 13:45 14:00 14:03 Temperature Pulse Rate 114 H 114 H 117 H Pulse Rate [ From Monitor] Respiratory Rate Blood Pressure 138/90 133/90 133/90 O2 Sat by Pulse 95 95 96 Oximetry O2 Sat by Pulse Oximetry [ Assessment] 03/31/20 03/31/20 03/31/20 14:15 14:30 14:45 Temperature Pulse Rate 115 H 116 H 110 H Pulse Rate [ From Monitor] Respiratory Rate Blood Pressure 133/90 134/89 134/89 O2 Sat by Pulse 98 96 97 Oximetry O2 Sat by Pulse Oximetry [ Assessment] 03/31/20 15:00 Temperature Pulse Rate 112 H Pulse Rate [ From Monitor] Respiratory Rate Blood Pressure 126/84 O2 Sat by Pulse 97 Oximetry O2 Sat by Pulse Oximetry [ Assessment] Constitutional: appears uncomfortable, other (thin middle aged male with normal respiratory effort at rest on MVS) Eyes: non-icteric ENT: oropharynx moist, other (S/P Tracheostomy) Neck: supple, no lymphadenopathy, no JVD Effort: mildly labored Ascultation: Bilateral: clear Percussion: Bilateral: not dull Cardiovascular: regular rate and rhythm, other (S1,S2, no murmurs) Gastrointestinal: normoactive bowel sounds, soft, non-tender, non-distended, other (+ distended but non tender suprapubis) Integumentary: normal, decubitus ulcer (sacral / gluteal) Extremities: no cyanosis, no edema, pulses normal, other (atrophic looking limbs) Neurologic: pupils equal and round, other (motor strength in extremities 1-2/5, awake, alert, mouths words to make needs known) Psychiatric: depressed CBC and BMP: 03/30/20 14:47 03/30/20 14:47 ABG, PT/INR, D-dimer: ABG ABG pH 7.371 (7.320-7.450) 03/08/20 12:34 POC ABG pCO2 63.1 mmHg (32.0-48.0) H 03/08/20 12:34 ABG pCO2 60.1 mm Hg 03/06/20 04:34 POC ABG pO2 90.5 mmHg (83-108) 03/08/20 12:34 ABG pO2 88.6 mm Hg (80.0-90.0) 03/06/20 04:34 POC ABG HCO3 35.7 03/08/20 12:34 ABG O2 Saturation 97.0 % (95.0-99.0) 03/06/20 04:34 PT/INR, D-dimer PT 15.6 Sec. (12.2-14.9) H 02/24/20 09:19 INR 1.21 (0.87-1.13) H 02/24/20 09:19 D-Dimer 1311.96 ng/mlDDU (0-234) H 02/24/20 09:19 Abnormal lab findings: Abnormal Labs 02/24/20 02/24/20 02/24/20 09:19 09:19 09:19 WBC 20.2 H RBC 5.05 H Hgb Hct MCV MCH RDW 15.3 H Plt Count Lymph % (Auto) Lymph # (Auto) Lucas # (Auto) Seg Neutrophils % Seg Neuts % (Manual) 86.0 H Lymphocytes % (Manual) 1.0 L Monocytes % (Manual) Basophils % (Manual) Seg Neutrophils # Seg Neutrophils # Man 17.4 H Lymphocytes # (Manual) 0.2 L Monocytes # (Manual) Eosinophils # (Manual) Basophils # (Manual) PT 15.6 H INR 1.21 H D-Dimer 1311.96 H ABG pH POC ABG pCO2 POC ABG pO2 ABG pO2 ABG HCO3 ABG O2 Saturation ABG Base Excess ABG Hemoglobin ABG Oxyhemoglobin ABG Potassium ABG Glucose Oxyhemoglobin Carboxyhemoglobin Sodium 135 L Potassium 3.2 L Chloride 92.2 L Carbon Dioxide BUN 6 L Creatinine < 0.2 L Glucose 124 H POC Glucose Calcium Ferritin Total Bilirubin 2.30 H Alkaline Phosphatase 132 H Lactate Dehydrogenase Total Creatine Kinase CK-MB (CK-2) Rel Index Troponin T 0.080 H C-Reactive Protein Total Protein Albumin 3.6 L Prealbumin LDL Cholesterol Direct 41 L Arterial Blood Glucose Arterial Blood Ionized Calcium Urine WBC (Auto) 02/24/20 02/24/20 02/24/20 09:19 09:58 10:01 WBC RBC Hgb Hct MCV MCH RDW Plt Count Lymph % (Auto) Lymph # (Auto) Lucas # (Auto) Seg Neutrophils % Seg Neuts % (Manual) Lymphocytes % (Manual) Monocytes % (Manual) Basophils % (Manual) Seg Neutrophils # Seg Neutrophils # Man Lymphocytes # (Manual) Monocytes # (Manual) Eosinophils # (Manual) Basophils # (Manual) PT INR D-Dimer ABG pH 7.176 L* POC ABG pCO2 POC ABG pO2 ABG pO2 91.2 H ABG HCO3 ABG O2 Saturation ABG Base Excess -4.6 L ABG Hemoglobin ABG Oxyhemoglobin ABG Potassium ABG Glucose Oxyhemoglobin 92.6 L Carboxyhemoglobin Sodium Potassium Chloride Carbon Dioxide BUN Creatinine Glucose POC Glucose Calcium Ferritin 1715.0 H Total Bilirubin Alkaline Phosphatase Lactate Dehydrogenase 303 H Total Creatine Kinase CK-MB (CK-2) Rel Index Troponin T C-Reactive Protein 26.10 H Total Protein Albumin Prealbumin LDL Cholesterol Direct Arterial Blood Glucose Arterial Blood Ionized Calcium Urine WBC (Auto) 02/24/20 02/24/20 02/24/20 11:52 13:45 19:35 WBC RBC Hgb Hct MCV MCH RDW Plt Count Lymph % (Auto) Lymph # (Auto) Lucas # (Auto) Seg Neutrophils % Seg Neuts % (Manual) Lymphocytes % (Manual) Monocytes % (Manual) Basophils % (Manual) Seg Neutrophils # Seg Neutrophils # Man Lymphocytes # (Manual) Monocytes # (Manual) Eosinophils # (Manual) Basophils # (Manual) PT INR D-Dimer ABG pH 7.051 L* 7.300 L POC ABG pCO2 POC ABG pO2 ABG pO2 94.7 H 75.1 L ABG HCO3 18.0 L ABG O2 Saturation 93.5 L ABG Base Excess -6.8 L -7.8 L ABG Hemoglobin 13.2 L 11.9 L ABG Oxyhemoglobin ABG Potassium ABG Glucose Oxyhemoglobin 91.0 L 92.7 L Carboxyhemoglobin Sodium Potassium Chloride Carbon Dioxide BUN Creatinine Glucose POC Glucose Calcium Ferritin Total Bilirubin Alkaline Phosphatase Lactate Dehydrogenase Total Creatine Kinase CK-MB (CK-2) Rel Index Troponin T 0.034 H D C-Reactive Protein Total Protein Albumin Prealbumin LDL Cholesterol Direct Arterial Blood Glucose Arterial Blood Ionized Calcium Urine WBC (Auto) 02/25/20 02/25/20 02/25/20 04:00 04:00 12:26 WBC 22.9 H RBC Hgb Hct MCV 83 L MCH 27 L RDW Plt Count 468 H Lymph % (Auto) Lymph # (Auto) Lucas # (Auto) Seg Neutrophils % Seg Neuts % (Manual) 89.0 H Lymphocytes % (Manual) 7.0 L Monocytes % (Manual) Basophils % (Manual) Seg Neutrophils # Seg Neutrophils # Man 20.4 H Lymphocytes # (Manual) Monocytes # (Manual) Eosinophils # (Manual) Basophils # (Manual) PT INR D-Dimer ABG pH POC ABG pCO2 POC ABG pO2 ABG pO2 ABG HCO3 ABG O2 Saturation ABG Base Excess ABG Hemoglobin ABG Oxyhemoglobin ABG Potassium 2.6 L ABG Glucose 142 H Oxyhemoglobin Carboxyhemoglobin Sodium Potassium 3.2 L Chloride Carbon Dioxide 18 L BUN Creatinine 0.2 L Glucose 114 H POC Glucose Calcium Ferritin Total Bilirubin Alkaline Phosphatase Lactate Dehydrogenase Total Creatine Kinase CK-MB (CK-2) Rel Index Troponin T C-Reactive Protein Total Protein Albumin 3.5 L Prealbumin LDL Cholesterol Direct Arterial Blood Glucose 142 H Arterial Blood Ionized Calcium Urine WBC (Auto) 02/26/20 02/26/20 02/26/20 15:58 17:00 23:43 WBC RBC Hgb Hct MCV MCH RDW Plt Count Lymph % (Auto) Lymph # (Auto) Lucas # (Auto) Seg Neutrophils % Seg Neuts % (Manual) Lymphocytes % (Manual) Monocytes % (Manual) Basophils % (Manual) Seg Neutrophils # Seg Neutrophils # Man Lymphocytes # (Manual) Monocytes # (Manual) Eosinophils # (Manual) Basophils # (Manual) PT INR D-Dimer ABG pH 7.502 H POC ABG pCO2 POC ABG pO2 213.6 H ABG pO2 ABG HCO3 ABG O2 Saturation ABG Base Excess ABG Hemoglobin ABG Oxyhemoglobin 99.2 H ABG Potassium 2.9 L ABG Glucose 160 H Oxyhemoglobin Carboxyhemoglobin 0.4 L Sodium Potassium Chloride Carbon Dioxide BUN Creatinine Glucose POC Glucose 189 H 120 H Calcium Ferritin Total Bilirubin Alkaline Phosphatase Lactate Dehydrogenase Total Creatine Kinase CK-MB (CK-2) Rel Index Troponin T C-Reactive Protein Total Protein Albumin Prealbumin LDL Cholesterol Direct Arterial Blood Glucose 160 H Arterial Blood Ionized Calcium 4.5 L Urine WBC (Auto) 02/27/20 02/27/20 02/27/20 05:00 07:04 17:45 WBC RBC Hgb Hct MCV MCH RDW Plt Count Lymph % (Auto) Lymph # (Auto) Lucas # (Auto) Seg Neutrophils % Seg Neuts % (Manual) Lymphocytes % (Manual) Monocytes % (Manual) Basophils % (Manual) Seg Neutrophils # Seg Neutrophils # Man Lymphocytes # (Manual) Monocytes # (Manual) Eosinophils # (Manual) Basophils # (Manual) PT INR D-Dimer ABG pH 7.524 H POC ABG pCO2 POC ABG pO2 ABG pO2 ABG HCO3 ABG O2 Saturation ABG Base Excess ABG Hemoglobin ABG Oxyhemoglobin ABG Potassium 3.0 L ABG Glucose 143 H Oxyhemoglobin Carboxyhemoglobin Sodium Potassium Chloride Carbon Dioxide BUN Creatinine Glucose POC Glucose 154 H 175 H Calcium Ferritin Total Bilirubin Alkaline Phosphatase Lactate Dehydrogenase Total Creatine Kinase CK-MB (CK-2) Rel Index Troponin T C-Reactive Protein Total Protein Albumin Prealbumin LDL Cholesterol Direct Arterial Blood Glucose 143 H Arterial Blood Ionized Calcium Urine WBC (Auto) 02/27/20 02/28/20 02/28/20 Unknown 00:21 04:15 WBC 18.7 H RBC Hgb Hct MCV MCH RDW Plt Count Lymph % (Auto) 8.7 L Lymph # (Auto) Lucas # (Auto) 1.2 H Seg Neutrophils % 84.6 H Seg Neuts % (Manual) Lymphocytes % (Manual) Monocytes % (Manual) Basophils % (Manual) Seg Neutrophils # 15.9 H Seg Neutrophils # Man Lymphocytes # (Manual) Monocytes # (Manual) Eosinophils # (Manual) Basophils # (Manual) PT INR D-Dimer ABG pH POC ABG pCO2 POC ABG pO2 ABG pO2 ABG HCO3 ABG O2 Saturation ABG Base Excess ABG Hemoglobin ABG Oxyhemoglobin ABG Potassium ABG Glucose Oxyhemoglobin Carboxyhemoglobin Sodium Potassium 2.9 L* Chloride Carbon Dioxide 33 H D BUN Creatinine < 0.2 L Glucose 157 H POC Glucose 134 H Calcium Ferritin Total Bilirubin Alkaline Phosphatase Lactate Dehydrogenase Total Creatine Kinase CK-MB (CK-2) Rel Index Troponin T C-Reactive Protein Total Protein Albumin Prealbumin LDL Cholesterol Direct Arterial Blood Glucose Arterial Blood Ionized Calcium Urine WBC (Auto) 02/28/20 02/28/20 02/28/20 04:15 05:16 05:39 WBC RBC Hgb Hct MCV MCH RDW Plt Count Lymph % (Auto) Lymph # (Auto) Lucas # (Auto) Seg Neutrophils % Seg Neuts % (Manual) Lymphocytes % (Manual) Monocytes % (Manual) Basophils % (Manual) Seg Neutrophils # Seg Neutrophils # Man Lymphocytes # (Manual) Monocytes # (Manual) Eosinophils # (Manual) Basophils # (Manual) PT INR D-Dimer ABG pH POC ABG pCO2 POC ABG pO2 ABG pO2 142.9 H ABG HCO3 34.1 H ABG O2 Saturation ABG Base Excess 8.3 H ABG Hemoglobin ABG Oxyhemoglobin ABG Potassium ABG Glucose Oxyhemoglobin Carboxyhemoglobin Sodium 151 H Potassium Chloride Carbon Dioxide 32 H BUN Creatinine 0.2 L Glucose 167 H POC Glucose 138 H Calcium Ferritin Total Bilirubin Alkaline Phosphatase Lactate Dehydrogenase Total Creatine Kinase CK-MB (CK-2) Rel Index Troponin T C-Reactive Protein Total Protein Albumin Prealbumin LDL Cholesterol Direct Arterial Blood Glucose Arterial Blood Ionized Calcium Urine WBC (Auto) 02/28/20 02/28/20 02/28/20 11:05 11:33 12:54 WBC RBC Hgb Hct MCV MCH RDW Plt Count Lymph % (Auto) Lymph # (Auto) Lucas # (Auto) Seg Neutrophils % Seg Neuts % (Manual) Lymphocytes % (Manual) Monocytes % (Manual) Basophils % (Manual) Seg Neutrophils # Seg Neutrophils # Man Lymphocytes # (Manual) Monocytes # (Manual) Eosinophils # (Manual) Basophils # (Manual) PT INR D-Dimer ABG pH POC ABG pCO2 POC ABG pO2 ABG pO2 ABG HCO3 ABG O2 Saturation ABG Base Excess ABG Hemoglobin ABG Oxyhemoglobin ABG Potassium ABG Glucose Oxyhemoglobin Carboxyhemoglobin Sodium Potassium Chloride Carbon Dioxide BUN Creatinine Glucose POC Glucose 160 H Calcium Ferritin Total Bilirubin Alkaline Phosphatase Lactate Dehydrogenase Total Creatine Kinase CK-MB (CK-2) Rel Index Troponin T C-Reactive Protein 4.70 H Total Protein Albumin Prealbumin 0.090 L LDL Cholesterol Direct Arterial Blood Glucose Arterial Blood Ionized Calcium Urine WBC (Auto) 02/28/20 02/29/20 02/29/20 17:34 00:44 04:05 WBC 19.6 H RBC Hgb Hct MCV MCH 27 L RDW 15.4 H Plt Count Lymph % (Auto) Lymph # (Auto) Lucas # (Auto) Seg Neutrophils % Seg Neuts % (Manual) 86.0 H Lymphocytes % (Manual) 7.0 L Monocytes % (Manual) Basophils % (Manual) Seg Neutrophils # Seg Neutrophils # Man 16.9 H Lymphocytes # (Manual) Monocytes # (Manual) 1.2 H Eosinophils # (Manual) Basophils # (Manual) PT INR D-Dimer ABG pH POC ABG pCO2 POC ABG pO2 ABG pO2 ABG HCO3 ABG O2 Saturation ABG Base Excess ABG Hemoglobin ABG Oxyhemoglobin ABG Potassium ABG Glucose Oxyhemoglobin Carboxyhemoglobin Sodium Potassium Chloride Carbon Dioxide BUN Creatinine Glucose POC Glucose 136 H 156 H Calcium Ferritin Total Bilirubin Alkaline Phosphatase Lactate Dehydrogenase Total Creatine Kinase CK-MB (CK-2) Rel Index Troponin T C-Reactive Protein Total Protein Albumin Prealbumin LDL Cholesterol Direct Arterial Blood Glucose Arterial Blood Ionized Calcium Urine WBC (Auto) 02/29/20 02/29/20 02/29/20 04:05 05:14 05:33 WBC RBC Hgb Hct MCV MCH RDW Plt Count Lymph % (Auto) Lymph # (Auto) Lucas # (Auto) Seg Neutrophils % Seg Neuts % (Manual) Lymphocytes % (Manual) Monocytes % (Manual) Basophils % (Manual) Seg Neutrophils # Seg Neutrophils # Man Lymphocytes # (Manual) Monocytes # (Manual) Eosinophils # (Manual) Basophils # (Manual) PT INR D-Dimer ABG pH POC ABG pCO2 54.3 H POC ABG pO2 124.8 H ABG pO2 ABG HCO3 ABG O2 Saturation ABG Base Excess ABG Hemoglobin ABG Oxyhemoglobin ABG Potassium ABG Glucose 185 H Oxyhemoglobin Carboxyhemoglobin Sodium 148 H Potassium Chloride Carbon Dioxide 33 H BUN Creatinine < 0.2 L Glucose 173 H POC Glucose 152 H Calcium Ferritin Total Bilirubin Alkaline Phosphatase Lactate Dehydrogenase Total Creatine Kinase CK-MB (CK-2) Rel Index Troponin T C-Reactive Protein Total Protein Albumin Prealbumin LDL Cholesterol Direct Arterial Blood Glucose 185 H Arterial Blood Ionized Calcium Urine WBC (Auto) 03/01/20 03/01/20 03/01/20 00:00 03:45 04:33 WBC 23.1 H RBC Hgb Hct MCV MCH 27 L RDW 15.3 H Plt Count Lymph % (Auto) Lymph # (Auto) Lucas # (Auto) Seg Neutrophils % Seg Neuts % (Manual) 92.0 H Lymphocytes % (Manual) 6.0 L Monocytes % (Manual) Basophils % (Manual) Seg Neutrophils # Seg Neutrophils # Man 21.3 H Lymphocytes # (Manual) Monocytes # (Manual) Eosinophils # (Manual) 0.5 H Basophils # (Manual) PT INR D-Dimer ABG pH 7.492 H POC ABG pCO2 POC ABG pO2 ABG pO2 157.1 H ABG HCO3 32.3 H ABG O2 Saturation ABG Base Excess 8.1 H ABG Hemoglobin 13.2 L ABG Oxyhemoglobin ABG Potassium ABG Glucose Oxyhemoglobin Carboxyhemoglobin Sodium Potassium Chloride Carbon Dioxide BUN Creatinine Glucose POC Glucose 109 H Calcium Ferritin Total Bilirubin Alkaline Phosphatase Lactate Dehydrogenase Total Creatine Kinase CK-MB (CK-2) Rel Index Troponin T C-Reactive Protein Total Protein Albumin Prealbumin LDL Cholesterol Direct Arterial Blood Glucose Arterial Blood Ionized Calcium Urine WBC (Auto) 03/01/20 03/01/20 03/01/20 04:33 05:29 12:32 WBC RBC Hgb Hct MCV MCH RDW Plt Count Lymph % (Auto) Lymph # (Auto) Lucas # (Auto) Seg Neutrophils % Seg Neuts % (Manual) Lymphocytes % (Manual) Monocytes % (Manual) Basophils % (Manual) Seg Neutrophils # Seg Neutrophils # Man Lymphocytes # (Manual) Monocytes # (Manual) Eosinophils # (Manual) Basophils # (Manual) PT INR D-Dimer ABG pH POC ABG pCO2 POC ABG pO2 ABG pO2 ABG HCO3 ABG O2 Saturation ABG Base Excess ABG Hemoglobin ABG Oxyhemoglobin ABG Potassium ABG Glucose Oxyhemoglobin Carboxyhemoglobin Sodium 146 H Potassium Chloride Carbon Dioxide 32 H BUN Creatinine < 0.2 L Glucose 120 H POC Glucose 120 H 128 H Calcium Ferritin Total Bilirubin Alkaline Phosphatase Lactate Dehydrogenase Total Creatine Kinase CK-MB (CK-2) Rel Index Troponin T C-Reactive Protein Total Protein Albumin Prealbumin LDL Cholesterol Direct Arterial Blood Glucose Arterial Blood Ionized Calcium Urine WBC (Auto) 03/01/20 03/01/20 03/02/20 17:38 23:46 06:13 WBC RBC Hgb Hct MCV MCH RDW Plt Count Lymph % (Auto) Lymph # (Auto) Lucas # (Auto) Seg Neutrophils % Seg Neuts % (Manual) Lymphocytes % (Manual) Monocytes % (Manual) Basophils % (Manual) Seg Neutrophils # Seg Neutrophils # Man Lymphocytes # (Manual) Monocytes # (Manual) Eosinophils # (Manual) Basophils # (Manual) PT INR D-Dimer ABG pH POC ABG pCO2 POC ABG pO2 ABG pO2 ABG HCO3 ABG O2 Saturation ABG Base Excess ABG Hemoglobin ABG Oxyhemoglobin ABG Potassium ABG Glucose Oxyhemoglobin Carboxyhemoglobin Sodium Potassium Chloride Carbon Dioxide BUN Creatinine Glucose POC Glucose 114 H 121 H 120 H Calcium Ferritin Total Bilirubin Alkaline Phosphatase Lactate Dehydrogenase Total Creatine Kinase CK-MB (CK-2) Rel Index Troponin T C-Reactive Protein Total Protein Albumin Prealbumin LDL Cholesterol Direct Arterial Blood Glucose Arterial Blood Ionized Calcium Urine WBC (Auto) 03/02/20 03/02/20 03/03/20 09:47 09:47 10:21 WBC 23.6 H RBC Hgb Hct MCV MCH RDW 15.3 H Plt Count 494 H Lymph % (Auto) Lymph # (Auto) Lucas # (Auto) Seg Neutrophils % Seg Neuts % (Manual) 85.0 H Lymphocytes % (Manual) 6.0 L Monocytes % (Manual) Basophils % (Manual) Seg Neutrophils # Seg Neutrophils # Man 20.1 H Lymphocytes # (Manual) Monocytes # (Manual) 1.7 H Eosinophils # (Manual) Basophils # (Manual) PT INR D-Dimer ABG pH POC ABG pCO2 POC ABG pO2 ABG pO2 ABG HCO3 ABG O2 Saturation ABG Base Excess ABG Hemoglobin ABG Oxyhemoglobin ABG Potassium 3.3 L ABG Glucose 158 H Oxyhemoglobin Carboxyhemoglobin Sodium Potassium Chloride Carbon Dioxide BUN Creatinine < 0.2 L Glucose 177 H POC Glucose Calcium Ferritin Total Bilirubin Alkaline Phosphatase Lactate Dehydrogenase Total Creatine Kinase CK-MB (CK-2) Rel Index Troponin T C-Reactive Protein Total Protein Albumin Prealbumin LDL Cholesterol Direct Arterial Blood Glucose 158 H Arterial Blood Ionized Calcium Urine WBC (Auto) 03/03/20 03/04/20 03/04/20 21:30 00:00 12:23 WBC RBC Hgb Hct MCV MCH RDW Plt Count Lymph % (Auto) Lymph # (Auto) Lucas # (Auto) Seg Neutrophils % Seg Neuts % (Manual) Lymphocytes % (Manual) Monocytes % (Manual) Basophils % (Manual) Seg Neutrophils # Seg Neutrophils # Man Lymphocytes # (Manual) Monocytes # (Manual) Eosinophils # (Manual) Basophils # (Manual) PT INR D-Dimer ABG pH 7.328 L POC ABG pCO2 POC ABG pO2 ABG pO2 68.4 L ABG HCO3 35.0 H ABG O2 Saturation 93.9 L ABG Base Excess 6.8 H ABG Hemoglobin 12.7 L ABG Oxyhemoglobin ABG Potassium ABG Glucose Oxyhemoglobin 91.9 L Carboxyhemoglobin Sodium Potassium Chloride Carbon Dioxide BUN Creatinine Glucose POC Glucose 187 H 163 H Calcium Ferritin Total Bilirubin Alkaline Phosphatase Lactate Dehydrogenase Total Creatine Kinase CK-MB (CK-2) Rel Index Troponin T C-Reactive Protein Total Protein Albumin Prealbumin LDL Cholesterol Direct Arterial Blood Glucose Arterial Blood Ionized Calcium Urine WBC (Auto) 03/04/20 03/04/20 03/05/20 18:15 21:30 06:02 WBC RBC Hgb Hct MCV MCH RDW Plt Count Lymph % (Auto) Lymph # (Auto) Lucas # (Auto) Seg Neutrophils % Seg Neuts % (Manual) Lymphocytes % (Manual) Monocytes % (Manual) Basophils % (Manual) Seg Neutrophils # Seg Neutrophils # Man Lymphocytes # (Manual) Monocytes # (Manual) Eosinophils # (Manual) Basophils # (Manual) PT INR D-Dimer ABG pH 7.297 L POC ABG pCO2 POC ABG pO2 ABG pO2 ABG HCO3 41.0 H ABG O2 Saturation ABG Base Excess 11.0 H ABG Hemoglobin 13.1 L ABG Oxyhemoglobin ABG Potassium ABG Glucose Oxyhemoglobin 94.5 L Carboxyhemoglobin Sodium Potassium Chloride Carbon Dioxide BUN Creatinine Glucose POC Glucose 192 H 127 H Calcium Ferritin Total Bilirubin Alkaline Phosphatase Lactate Dehydrogenase Total Creatine Kinase CK-MB (CK-2) Rel Index Troponin T C-Reactive Protein Total Protein Albumin Prealbumin LDL Cholesterol Direct Arterial Blood Glucose Arterial Blood Ionized Calcium Urine WBC (Auto) 03/05/20 03/05/20 03/06/20 12:09 16:42 00:24 WBC RBC Hgb Hct MCV MCH RDW Plt Count Lymph % (Auto) Lymph # (Auto) Lucas # (Auto) Seg Neutrophils % Seg Neuts % (Manual) Lymphocytes % (Manual) Monocytes % (Manual) Basophils % (Manual) Seg Neutrophils # Seg Neutrophils # Man Lymphocytes # (Manual) Monocytes # (Manual) Eosinophils # (Manual) Basophils # (Manual) PT INR D-Dimer ABG pH POC ABG pCO2 POC ABG pO2 ABG pO2 ABG HCO3 ABG O2 Saturation ABG Base Excess ABG Hemoglobin ABG Oxyhemoglobin ABG Potassium ABG Glucose Oxyhemoglobin Carboxyhemoglobin Sodium Potassium Chloride Carbon Dioxide BUN Creatinine Glucose POC Glucose 147 H 114 H 134 H Calcium Ferritin Total Bilirubin Alkaline Phosphatase Lactate Dehydrogenase Total Creatine Kinase CK-MB (CK-2) Rel Index Troponin T C-Reactive Protein Total Protein Albumin Prealbumin LDL Cholesterol Direct Arterial Blood Glucose Arterial Blood Ionized Calcium Urine WBC (Auto) 03/06/20 03/06/20 03/06/20 04:34 05:53 06:08 WBC 25.4 H RBC Hgb 10.5 L Hct 32.7 L MCV MCH 27 L RDW 15.3 H Plt Count 634 H Lymph % (Auto) Lymph # (Auto) Lucas # (Auto) Seg Neutrophils % Seg Neuts % (Manual) 88.0 H Lymphocytes % (Manual) 2.0 L Monocytes % (Manual) 8.0 H Basophils % (Manual) Seg Neutrophils # Seg Neutrophils # Man 22.4 H Lymphocytes # (Manual) 0.5 L Monocytes # (Manual) 2.0 H Eosinophils # (Manual) Basophils # (Manual) PT INR D-Dimer ABG pH POC ABG pCO2 POC ABG pO2 ABG pO2 ABG HCO3 37.9 H ABG O2 Saturation ABG Base Excess 11.4 H ABG Hemoglobin 10.6 L ABG Oxyhemoglobin ABG Potassium ABG Glucose Oxyhemoglobin 94.7 L Carboxyhemoglobin Sodium Potassium Chloride Carbon Dioxide BUN Creatinine Glucose POC Glucose 135 H Calcium Ferritin Total Bilirubin Alkaline Phosphatase Lactate Dehydrogenase Total Creatine Kinase CK-MB (CK-2) Rel Index Troponin T C-Reactive Protein Total Protein Albumin Prealbumin LDL Cholesterol Direct Arterial Blood Glucose Arterial Blood Ionized Calcium Urine WBC (Auto) 03/06/20 03/06/20 03/06/20 06:08 12:19 19:10 WBC RBC Hgb Hct MCV MCH RDW Plt Count Lymph % (Auto) Lymph # (Auto) Lucas # (Auto) Seg Neutrophils % Seg Neuts % (Manual) Lymphocytes % (Manual) Monocytes % (Manual) Basophils % (Manual) Seg Neutrophils # Seg Neutrophils # Man Lymphocytes # (Manual) Monocytes # (Manual) Eosinophils # (Manual) Basophils # (Manual) PT INR D-Dimer ABG pH POC ABG pCO2 POC ABG pO2 ABG pO2 ABG HCO3 ABG O2 Saturation ABG Base Excess ABG Hemoglobin ABG Oxyhemoglobin ABG Potassium ABG Glucose Oxyhemoglobin Carboxyhemoglobin Sodium 150 H D Potassium Chloride Carbon Dioxide 39 H D BUN 23 H Creatinine < 0.2 L Glucose 144 H POC Glucose 169 H 152 H Calcium Ferritin Total Bilirubin Alkaline Phosphatase Lactate Dehydrogenase Total Creatine Kinase CK-MB (CK-2) Rel Index Troponin T C-Reactive Protein Total Protein Albumin 3.3 L Prealbumin LDL Cholesterol Direct Arterial Blood Glucose Arterial Blood Ionized Calcium Urine WBC (Auto) 03/06/20 03/07/20 03/07/20 23:58 04:25 04:25 WBC 22.1 H RBC Hgb 10.9 L Hct 32.9 L MCV MCH RDW 15.5 H Plt Count 739 H Lymph % (Auto) 7.8 L Lymph # (Auto) Lucas # (Auto) 1.3 H Seg Neutrophils % 85.5 H Seg Neuts % (Manual) Lymphocytes % (Manual) Monocytes % (Manual) Basophils % (Manual) Seg Neutrophils # 18.9 H Seg Neutrophils # Man Lymphocytes # (Manual) Monocytes # (Manual) Eosinophils # (Manual) Basophils # (Manual) PT INR D-Dimer ABG pH POC ABG pCO2 POC ABG pO2 ABG pO2 ABG HCO3 ABG O2 Saturation ABG Base Excess ABG Hemoglobin ABG Oxyhemoglobin ABG Potassium ABG Glucose Oxyhemoglobin Carboxyhemoglobin Sodium 146 H Potassium Chloride Carbon Dioxide 37 H BUN Creatinine < 0.2 L Glucose 118 H POC Glucose 111 H Calcium Ferritin Total Bilirubin Alkaline Phosphatase Lactate Dehydrogenase Total Creatine Kinase CK-MB (CK-2) Rel Index Troponin T C-Reactive Protein Total Protein Albumin 3.7 L Prealbumin LDL Cholesterol Direct Arterial Blood Glucose Arterial Blood Ionized Calcium Urine WBC (Auto) 03/07/20 03/07/20 03/07/20 05:20 17:45 23:32 WBC RBC Hgb Hct MCV MCH RDW Plt Count Lymph % (Auto) Lymph # (Auto) Lucas # (Auto) Seg Neutrophils % Seg Neuts % (Manual) Lymphocytes % (Manual) Monocytes % (Manual) Basophils % (Manual) Seg Neutrophils # Seg Neutrophils # Man Lymphocytes # (Manual) Monocytes # (Manual) Eosinophils # (Manual) Basophils # (Manual) PT INR D-Dimer ABG pH POC ABG pCO2 POC ABG pO2 ABG pO2 ABG HCO3 ABG O2 Saturation ABG Base Excess ABG Hemoglobin ABG Oxyhemoglobin ABG Potassium ABG Glucose Oxyhemoglobin Carboxyhemoglobin Sodium Potassium Chloride Carbon Dioxide BUN Creatinine Glucose POC Glucose 113 H 124 H 210 H Calcium Ferritin Total Bilirubin Alkaline Phosphatase Lactate Dehydrogenase Total Creatine Kinase CK-MB (CK-2) Rel Index Troponin T C-Reactive Protein Total Protein Albumin Prealbumin LDL Cholesterol Direct Arterial Blood Glucose Arterial Blood Ionized Calcium Urine WBC (Auto) 03/08/20 03/08/20 03/08/20 05:35 06:43 06:43 WBC 28.9 H RBC 3.53 L Hgb 9.7 L Hct 30.3 L MCV MCH RDW 15.6 H Plt Count 578 H Lymph % (Auto) Lymph # (Auto) Lucas # (Auto) Seg Neutrophils % Seg Neuts % (Manual) 93.0 H Lymphocytes % (Manual) 4.0 L Monocytes % (Manual) Basophils % (Manual) Seg Neutrophils # Seg Neutrophils # Man 26.9 H Lymphocytes # (Manual) Monocytes # (Manual) Eosinophils # (Manual) Basophils # (Manual) PT INR D-Dimer ABG pH POC ABG pCO2 POC ABG pO2 ABG pO2 ABG HCO3 ABG O2 Saturation ABG Base Excess ABG Hemoglobin ABG Oxyhemoglobin ABG Potassium ABG Glucose Oxyhemoglobin Carboxyhemoglobin Sodium 146 H Potassium Chloride Carbon Dioxide 35 H BUN 34 H Creatinine 0.3 L D Glucose 125 H POC Glucose 147 H Calcium Ferritin Total Bilirubin Alkaline Phosphatase Lactate Dehydrogenase Total Creatine Kinase CK-MB (CK-2) Rel Index Troponin T C-Reactive Protein Total Protein 5.9 L Albumin 3.2 L Prealbumin LDL Cholesterol Direct Arterial Blood Glucose Arterial Blood Ionized Calcium Urine WBC (Auto) 03/08/20 03/08/20 03/08/20 08:57 11:14 12:34 WBC RBC Hgb Hct MCV MCH RDW Plt Count Lymph % (Auto) Lymph # (Auto) Lucas # (Auto) Seg Neutrophils % Seg Neuts % (Manual) Lymphocytes % (Manual) Monocytes % (Manual) Basophils % (Manual) Seg Neutrophils # Seg Neutrophils # Man Lymphocytes # (Manual) Monocytes # (Manual) Eosinophils # (Manual) Basophils # (Manual) PT INR D-Dimer ABG pH POC ABG pCO2 63.1 H POC ABG pO2 ABG pO2 ABG HCO3 ABG O2 Saturation ABG Base Excess ABG Hemoglobin 10.9 L ABG Oxyhemoglobin ABG Potassium ABG Glucose 176 H Oxyhemoglobin Carboxyhemoglobin Sodium Potassium Chloride Carbon Dioxide BUN Creatinine Glucose POC Glucose 171 H Calcium Ferritin Total Bilirubin Alkaline Phosphatase Lactate Dehydrogenase Total Creatine Kinase CK-MB (CK-2) Rel Index Troponin T C-Reactive Protein Total Protein Albumin Prealbumin LDL Cholesterol Direct Arterial Blood Glucose 176 H Arterial Blood Ionized Calcium 4.5 L Urine WBC (Auto) 10.0 H 03/08/20 03/08/20 03/09/20 18:02 23:43 05:49 WBC RBC Hgb Hct MCV MCH RDW Plt Count Lymph % (Auto) Lymph # (Auto) Lucas # (Auto) Seg Neutrophils % Seg Neuts % (Manual) Lymphocytes % (Manual) Monocytes % (Manual) Basophils % (Manual) Seg Neutrophils # Seg Neutrophils # Man Lymphocytes # (Manual) Monocytes # (Manual) Eosinophils # (Manual) Basophils # (Manual) PT INR D-Dimer ABG pH POC ABG pCO2 POC ABG pO2 ABG pO2 ABG HCO3 ABG O2 Saturation ABG Base Excess ABG Hemoglobin ABG Oxyhemoglobin ABG Potassium ABG Glucose Oxyhemoglobin Carboxyhemoglobin Sodium Potassium Chloride Carbon Dioxide BUN Creatinine Glucose POC Glucose 157 H 134 H 163 H Calcium Ferritin Total Bilirubin Alkaline Phosphatase Lactate Dehydrogenase Total Creatine Kinase CK-MB (CK-2) Rel Index Troponin T C-Reactive Protein Total Protein Albumin Prealbumin LDL Cholesterol Direct Arterial Blood Glucose Arterial Blood Ionized Calcium Urine WBC (Auto) 03/09/20 03/09/20 03/09/20 08:35 08:35 12:11 WBC 23.4 H RBC 3.36 L Hgb 9.3 L Hct 28.8 L MCV MCH RDW 15.9 H Plt Count 521 H Lymph % (Auto) Lymph # (Auto) Lucas # (Auto) Seg Neutrophils % Seg Neuts % (Manual) 87.0 H Lymphocytes % (Manual) 4.0 L Monocytes % (Manual) 9.0 H Basophils % (Manual) Seg Neutrophils # Seg Neutrophils # Man 20.4 H Lymphocytes # (Manual) 0.9 L Monocytes # (Manual) 2.1 H Eosinophils # (Manual) Basophils # (Manual) PT INR D-Dimer ABG pH POC ABG pCO2 POC ABG pO2 ABG pO2 ABG HCO3 ABG O2 Saturation ABG Base Excess ABG Hemoglobin ABG Oxyhemoglobin ABG Potassium ABG Glucose Oxyhemoglobin Carboxyhemoglobin Sodium 147 H Potassium Chloride Carbon Dioxide 37 H BUN 63 H Creatinine Glucose 154 H POC Glucose 128 H Calcium Ferritin Total Bilirubin Alkaline Phosphatase Lactate Dehydrogenase Total Creatine Kinase CK-MB (CK-2) Rel Index Troponin T C-Reactive Protein Total Protein Albumin Prealbumin LDL Cholesterol Direct Arterial Blood Glucose Arterial Blood Ionized Calcium Urine WBC (Auto) 03/09/20 03/10/20 03/10/20 17:51 00:25 05:41 WBC RBC Hgb Hct MCV MCH RDW Plt Count Lymph % (Auto) Lymph # (Auto) Lucas # (Auto) Seg Neutrophils % Seg Neuts % (Manual) Lymphocytes % (Manual) Monocytes % (Manual) Basophils % (Manual) Seg Neutrophils # Seg Neutrophils # Man Lymphocytes # (Manual) Monocytes # (Manual) Eosinophils # (Manual) Basophils # (Manual) PT INR D-Dimer ABG pH POC ABG pCO2 POC ABG pO2 ABG pO2 ABG HCO3 ABG O2 Saturation ABG Base Excess ABG Hemoglobin ABG Oxyhemoglobin ABG Potassium ABG Glucose Oxyhemoglobin Carboxyhemoglobin Sodium Potassium Chloride Carbon Dioxide BUN Creatinine Glucose POC Glucose 127 H 128 H 153 H Calcium Ferritin Total Bilirubin Alkaline Phosphatase Lactate Dehydrogenase Total Creatine Kinase CK-MB (CK-2) Rel Index Troponin T C-Reactive Protein Total Protein Albumin Prealbumin LDL Cholesterol Direct Arterial Blood Glucose Arterial Blood Ionized Calcium Urine WBC (Auto) 03/10/20 03/10/20 03/10/20 06:14 06:14 12:02 WBC 18.3 H RBC 3.45 L Hgb 9.5 L Hct 29.5 L MCV MCH RDW 16.1 H Plt Count 494 H Lymph % (Auto) Lymph # (Auto) Lucas # (Auto) Seg Neutrophils % Seg Neuts % (Manual) 95.0 H Lymphocytes % (Manual) 1.0 L Monocytes % (Manual) Basophils % (Manual) Seg Neutrophils # Seg Neutrophils # Man 17.4 H Lymphocytes # (Manual) 0.2 L Monocytes # (Manual) Eosinophils # (Manual) Basophils # (Manual) PT INR D-Dimer ABG pH POC ABG pCO2 POC ABG pO2 ABG pO2 ABG HCO3 ABG O2 Saturation ABG Base Excess ABG Hemoglobin ABG Oxyhemoglobin ABG Potassium ABG Glucose Oxyhemoglobin Carboxyhemoglobin Sodium 149 H Potassium Chloride Carbon Dioxide 35 H BUN 34 H Creatinine 0.2 L D Glucose 177 H POC Glucose 151 H Calcium Ferritin Total Bilirubin Alkaline Phosphatase Lactate Dehydrogenase Total Creatine Kinase CK-MB (CK-2) Rel Index Troponin T C-Reactive Protein Total Protein Albumin Prealbumin LDL Cholesterol Direct Arterial Blood Glucose Arterial Blood Ionized Calcium Urine WBC (Auto) 03/10/20 03/10/20 03/11/20 17:41 23:53 05:02 WBC RBC Hgb Hct MCV MCH RDW Plt Count Lymph % (Auto) Lymph # (Auto) Lucas # (Auto) Seg Neutrophils % Seg Neuts % (Manual) Lymphocytes % (Manual) Monocytes % (Manual) Basophils % (Manual) Seg Neutrophils # Seg Neutrophils # Man Lymphocytes # (Manual) Monocytes # (Manual) Eosinophils # (Manual) Basophils # (Manual) PT INR D-Dimer ABG pH POC ABG pCO2 POC ABG pO2 ABG pO2 ABG HCO3 ABG O2 Saturation ABG Base Excess ABG Hemoglobin ABG Oxyhemoglobin ABG Potassium ABG Glucose Oxyhemoglobin Carboxyhemoglobin Sodium Potassium Chloride Carbon Dioxide BUN Creatinine Glucose POC Glucose 168 H 142 H 146 H Calcium Ferritin Total Bilirubin Alkaline Phosphatase Lactate Dehydrogenase Total Creatine Kinase CK-MB (CK-2) Rel Index Troponin T C-Reactive Protein Total Protein Albumin Prealbumin LDL Cholesterol Direct Arterial Blood Glucose Arterial Blood Ionized Calcium Urine WBC (Auto) 03/11/20 03/11/20 03/11/20 11:30 14:01 14:01 WBC 19.7 H RBC 3.04 L Hgb 8.7 L Hct 25.8 L MCV MCH RDW 15.6 H Plt Count Lymph % (Auto) Lymph # (Auto) Lucas # (Auto) Seg Neutrophils % Seg Neuts % (Manual) Lymphocytes % (Manual) Monocytes % (Manual) Basophils % (Manual) Seg Neutrophils # Seg Neutrophils # Man Lymphocytes # (Manual) Monocytes # (Manual) Eosinophils # (Manual) Basophils # (Manual) PT INR D-Dimer ABG pH POC ABG pCO2 POC ABG pO2 ABG pO2 ABG HCO3 ABG O2 Saturation ABG Base Excess ABG Hemoglobin ABG Oxyhemoglobin ABG Potassium ABG Glucose Oxyhemoglobin Carboxyhemoglobin Sodium 151 H Potassium Chloride Carbon Dioxide 37 H BUN Creatinine < 0.2 L Glucose 171 H POC Glucose 248 H Calcium Ferritin Total Bilirubin Alkaline Phosphatase Lactate Dehydrogenase Total Creatine Kinase CK-MB (CK-2) Rel Index Troponin T C-Reactive Protein Total Protein Albumin Prealbumin LDL Cholesterol Direct Arterial Blood Glucose Arterial Blood Ionized Calcium Urine WBC (Auto) 03/11/20 03/11/20 03/12/20 17:09 23:52 04:39 WBC 19.9 H RBC 3.16 L Hgb 8.9 L Hct 27.5 L MCV MCH RDW 15.7 H Plt Count Lymph % (Auto) 6.8 L Lymph # (Auto) Lucas # (Auto) 1.2 H Seg Neutrophils % 86.0 H Seg Neuts % (Manual) Lymphocytes % (Manual) Monocytes % (Manual) Basophils % (Manual) Seg Neutrophils # 17.1 H Seg Neutrophils # Man Lymphocytes # (Manual) Monocytes # (Manual) Eosinophils # (Manual) Basophils # (Manual) PT INR D-Dimer ABG pH POC ABG pCO2 POC ABG pO2 ABG pO2 ABG HCO3 ABG O2 Saturation ABG Base Excess ABG Hemoglobin ABG Oxyhemoglobin ABG Potassium ABG Glucose Oxyhemoglobin Carboxyhemoglobin Sodium Potassium Chloride Carbon Dioxide BUN Creatinine Glucose POC Glucose 124 H 131 H Calcium Ferritin Total Bilirubin Alkaline Phosphatase Lactate Dehydrogenase Total Creatine Kinase CK-MB (CK-2) Rel Index Troponin T C-Reactive Protein Total Protein Albumin Prealbumin LDL Cholesterol Direct Arterial Blood Glucose Arterial Blood Ionized Calcium Urine WBC (Auto) 03/12/20 03/12/20 03/12/20 04:39 05:28 11:34 WBC RBC Hgb Hct MCV MCH RDW Plt Count Lymph % (Auto) Lymph # (Auto) Lucas # (Auto) Seg Neutrophils % Seg Neuts % (Manual) Lymphocytes % (Manual) Monocytes % (Manual) Basophils % (Manual) Seg Neutrophils # Seg Neutrophils # Man Lymphocytes # (Manual) Monocytes # (Manual) Eosinophils # (Manual) Basophils # (Manual) PT INR D-Dimer ABG pH POC ABG pCO2 POC ABG pO2 ABG pO2 ABG HCO3 ABG O2 Saturation ABG Base Excess ABG Hemoglobin ABG Oxyhemoglobin ABG Potassium ABG Glucose Oxyhemoglobin Carboxyhemoglobin Sodium 147 H Potassium Chloride Carbon Dioxide 40 H BUN Creatinine < 0.2 L Glucose 175 H POC Glucose 167 H 144 H Calcium Ferritin Total Bilirubin Alkaline Phosphatase Lactate Dehydrogenase Total Creatine Kinase CK-MB (CK-2) Rel Index Troponin T C-Reactive Protein Total Protein Albumin Prealbumin LDL Cholesterol Direct Arterial Blood Glucose Arterial Blood Ionized Calcium Urine WBC (Auto) 03/12/20 03/12/20 03/13/20 17:32 23:57 05:57 WBC RBC Hgb Hct MCV MCH RDW Plt Count Lymph % (Auto) Lymph # (Auto) Lucas # (Auto) Seg Neutrophils % Seg Neuts % (Manual) Lymphocytes % (Manual) Monocytes % (Manual) Basophils % (Manual) Seg Neutrophils # Seg Neutrophils # Man Lymphocytes # (Manual) Monocytes # (Manual) Eosinophils # (Manual) Basophils # (Manual) PT INR D-Dimer ABG pH POC ABG pCO2 POC ABG pO2 ABG pO2 ABG HCO3 ABG O2 Saturation ABG Base Excess ABG Hemoglobin ABG Oxyhemoglobin ABG Potassium ABG Glucose Oxyhemoglobin Carboxyhemoglobin Sodium Potassium Chloride Carbon Dioxide BUN Creatinine Glucose POC Glucose 141 H 137 H 161 H Calcium Ferritin Total Bilirubin Alkaline Phosphatase Lactate Dehydrogenase Total Creatine Kinase CK-MB (CK-2) Rel Index Troponin T C-Reactive Protein Total Protein Albumin Prealbumin LDL Cholesterol Direct Arterial Blood Glucose Arterial Blood Ionized Calcium Urine WBC (Auto) 03/13/20 03/13/20 03/13/20 12:28 14:14 18:39 WBC RBC Hgb Hct MCV MCH RDW Plt Count Lymph % (Auto) Lymph # (Auto) Lucas # (Auto) Seg Neutrophils % Seg Neuts % (Manual) Lymphocytes % (Manual) Monocytes % (Manual) Basophils % (Manual) Seg Neutrophils # Seg Neutrophils # Man Lymphocytes # (Manual) Monocytes # (Manual) Eosinophils # (Manual) Basophils # (Manual) PT INR D-Dimer ABG pH POC ABG pCO2 POC ABG pO2 ABG pO2 ABG HCO3 ABG O2 Saturation ABG Base Excess ABG Hemoglobin ABG Oxyhemoglobin ABG Potassium ABG Glucose Oxyhemoglobin Carboxyhemoglobin Sodium Potassium Chloride Carbon Dioxide 39 H BUN Creatinine < 0.2 L Glucose 129 H POC Glucose 130 H 125 H Calcium Ferritin Total Bilirubin Alkaline Phosphatase Lactate Dehydrogenase Total Creatine Kinase CK-MB (CK-2) Rel Index Troponin T C-Reactive Protein Total Protein Albumin Prealbumin LDL Cholesterol Direct Arterial Blood Glucose Arterial Blood Ionized Calcium Urine WBC (Auto) 03/13/20 03/14/20 03/14/20 23:33 05:24 08:07 WBC 16.8 H RBC 2.81 L Hgb 7.9 L Hct 23.9 L MCV MCH RDW 15.9 H Plt Count Lymph % (Auto) Lymph # (Auto) Lucas # (Auto) Seg Neutrophils % Seg Neuts % (Manual) 84.0 H Lymphocytes % (Manual) 10.0 L Monocytes % (Manual) Basophils % (Manual) Seg Neutrophils # Seg Neutrophils # Man 14.1 H Lymphocytes # (Manual) Monocytes # (Manual) Eosinophils # (Manual) Basophils # (Manual) PT INR D-Dimer ABG pH POC ABG pCO2 POC ABG pO2 ABG pO2 ABG HCO3 ABG O2 Saturation ABG Base Excess ABG Hemoglobin ABG Oxyhemoglobin ABG Potassium ABG Glucose Oxyhemoglobin Carboxyhemoglobin Sodium Potassium Chloride Carbon Dioxide BUN Creatinine Glucose POC Glucose 146 H 125 H Calcium Ferritin Total Bilirubin Alkaline Phosphatase Lactate Dehydrogenase Total Creatine Kinase CK-MB (CK-2) Rel Index Troponin T C-Reactive Protein Total Protein Albumin Prealbumin LDL Cholesterol Direct Arterial Blood Glucose Arterial Blood Ionized Calcium Urine WBC (Auto) 03/14/20 03/14/20 03/14/20 08:07 12:21 18:26 WBC RBC Hgb Hct MCV MCH RDW Plt Count Lymph % (Auto) Lymph # (Auto) Lucas # (Auto) Seg Neutrophils % Seg Neuts % (Manual) Lymphocytes % (Manual) Monocytes % (Manual) Basophils % (Manual) Seg Neutrophils # Seg Neutrophils # Man Lymphocytes # (Manual) Monocytes # (Manual) Eosinophils # (Manual) Basophils # (Manual) PT INR D-Dimer ABG pH POC ABG pCO2 POC ABG pO2 ABG pO2 ABG HCO3 ABG O2 Saturation ABG Base Excess ABG Hemoglobin ABG Oxyhemoglobin ABG Potassium ABG Glucose Oxyhemoglobin Carboxyhemoglobin Sodium Potassium Chloride 97.0 L Carbon Dioxide 37 H BUN Creatinine < 0.2 L Glucose 129 H POC Glucose 109 H 142 H Calcium 8.3 L Ferritin Total Bilirubin Alkaline Phosphatase Lactate Dehydrogenase Total Creatine Kinase CK-MB (CK-2) Rel Index Troponin T C-Reactive Protein Total Protein Albumin Prealbumin LDL Cholesterol Direct Arterial Blood Glucose Arterial Blood Ionized Calcium Urine WBC (Auto) 03/14/20 03/15/20 03/15/20 23:57 05:46 08:06 WBC 19.7 H RBC 3.29 L Hgb 9.1 L Hct 28.0 L MCV MCH RDW 15.9 H Plt Count Lymph % (Auto) Lymph # (Auto) Lucas # (Auto) Seg Neutrophils % Seg Neuts % (Manual) Lymphocytes % (Manual) Monocytes % (Manual) Basophils % (Manual) Seg Neutrophils # Seg Neutrophils # Man Lymphocytes # (Manual) Monocytes # (Manual) Eosinophils # (Manual) Basophils # (Manual) PT INR D-Dimer ABG pH POC ABG pCO2 POC ABG pO2 ABG pO2 ABG HCO3 ABG O2 Saturation ABG Base Excess ABG Hemoglobin ABG Oxyhemoglobin ABG Potassium ABG Glucose Oxyhemoglobin Carboxyhemoglobin Sodium Potassium Chloride Carbon Dioxide BUN Creatinine Glucose POC Glucose 157 H 118 H Calcium Ferritin Total Bilirubin Alkaline Phosphatase Lactate Dehydrogenase Total Creatine Kinase CK-MB (CK-2) Rel Index Troponin T C-Reactive Protein Total Protein Albumin Prealbumin LDL Cholesterol Direct Arterial Blood Glucose Arterial Blood Ionized Calcium Urine WBC (Auto) 03/15/20 03/15/20 03/15/20 08:06 12:44 18:09 WBC RBC Hgb Hct MCV MCH RDW Plt Count Lymph % (Auto) Lymph # (Auto) Lucas # (Auto) Seg Neutrophils % Seg Neuts % (Manual) Lymphocytes % (Manual) Monocytes % (Manual) Basophils % (Manual) Seg Neutrophils # Seg Neutrophils # Man Lymphocytes # (Manual) Monocytes # (Manual) Eosinophils # (Manual) Basophils # (Manual) PT INR D-Dimer ABG pH POC ABG pCO2 POC ABG pO2 ABG pO2 ABG HCO3 ABG O2 Saturation ABG Base Excess ABG Hemoglobin ABG Oxyhemoglobin ABG Potassium ABG Glucose Oxyhemoglobin Carboxyhemoglobin Sodium 136 L Potassium Chloride 93.6 L Carbon Dioxide 37 H BUN Creatinine < 0.2 L Glucose 132 H POC Glucose 151 H 164 H Calcium Ferritin Total Bilirubin Alkaline Phosphatase Lactate Dehydrogenase Total Creatine Kinase CK-MB (CK-2) Rel Index Troponin T C-Reactive Protein Total Protein Albumin Prealbumin LDL Cholesterol Direct Arterial Blood Glucose Arterial Blood Ionized Calcium Urine WBC (Auto) 03/15/20 03/16/20 03/16/20 23:26 05:39 11:58 WBC RBC Hgb Hct MCV MCH RDW Plt Count Lymph % (Auto) Lymph # (Auto) Lucas # (Auto) Seg Neutrophils % Seg Neuts % (Manual) Lymphocytes % (Manual) Monocytes % (Manual) Basophils % (Manual) Seg Neutrophils # Seg Neutrophils # Man Lymphocytes # (Manual) Monocytes # (Manual) Eosinophils # (Manual) Basophils # (Manual) PT INR D-Dimer ABG pH POC ABG pCO2 POC ABG pO2 ABG pO2 ABG HCO3 ABG O2 Saturation ABG Base Excess ABG Hemoglobin ABG Oxyhemoglobin ABG Potassium ABG Glucose Oxyhemoglobin Carboxyhemoglobin Sodium Potassium Chloride Carbon Dioxide BUN Creatinine Glucose POC Glucose 136 H 116 H 109 H Calcium Ferritin Total Bilirubin Alkaline Phosphatase Lactate Dehydrogenase Total Creatine Kinase CK-MB (CK-2) Rel Index Troponin T C-Reactive Protein Total Protein Albumin Prealbumin LDL Cholesterol Direct Arterial Blood Glucose Arterial Blood Ionized Calcium Urine WBC (Auto) 03/16/20 03/17/20 03/17/20 23:56 04:40 04:40 WBC 18.0 H RBC 3.33 L Hgb 9.5 L Hct 28.8 L MCV MCH RDW 16.4 H Plt Count 499 H Lymph % (Auto) Lymph # (Auto) Lucas # (Auto) Seg Neutrophils % Seg Neuts % (Manual) 82.0 H Lymphocytes % (Manual) 8.0 L Monocytes % (Manual) Basophils % (Manual) Seg Neutrophils # Seg Neutrophils # Man 14.8 H Lymphocytes # (Manual) Monocytes # (Manual) 1.3 H Eosinophils # (Manual) Basophils # (Manual) 0.2 H PT INR D-Dimer ABG pH POC ABG pCO2 POC ABG pO2 ABG pO2 ABG HCO3 ABG O2 Saturation ABG Base Excess ABG Hemoglobin ABG Oxyhemoglobin ABG Potassium ABG Glucose Oxyhemoglobin Carboxyhemoglobin Sodium Potassium Chloride 97.7 L Carbon Dioxide 32 H BUN Creatinine < 0.2 L Glucose 114 H POC Glucose 131 H Calcium Ferritin Total Bilirubin Alkaline Phosphatase Lactate Dehydrogenase Total Creatine Kinase CK-MB (CK-2) Rel Index Troponin T C-Reactive Protein Total Protein Albumin Prealbumin LDL Cholesterol Direct Arterial Blood Glucose Arterial Blood Ionized Calcium Urine WBC (Auto) 03/18/20 03/18/20 03/18/20 00:21 05:21 11:55 WBC RBC Hgb Hct MCV MCH RDW Plt Count Lymph % (Auto) Lymph # (Auto) Lucas # (Auto) Seg Neutrophils % Seg Neuts % (Manual) Lymphocytes % (Manual) Monocytes % (Manual) Basophils % (Manual) Seg Neutrophils # Seg Neutrophils # Man Lymphocytes # (Manual) Monocytes # (Manual) Eosinophils # (Manual) Basophils # (Manual) PT INR D-Dimer ABG pH POC ABG pCO2 POC ABG pO2 ABG pO2 ABG HCO3 ABG O2 Saturation ABG Base Excess ABG Hemoglobin ABG Oxyhemoglobin ABG Potassium ABG Glucose Oxyhemoglobin Carboxyhemoglobin Sodium Potassium Chloride Carbon Dioxide BUN Creatinine Glucose POC Glucose 124 H 138 H 119 H Calcium Ferritin Total Bilirubin Alkaline Phosphatase Lactate Dehydrogenase Total Creatine Kinase CK-MB (CK-2) Rel Index Troponin T C-Reactive Protein Total Protein Albumin Prealbumin LDL Cholesterol Direct Arterial Blood Glucose Arterial Blood Ionized Calcium Urine WBC (Auto) 03/18/20 03/18/20 03/19/20 17:03 23:58 05:24 WBC RBC Hgb Hct MCV MCH RDW Plt Count Lymph % (Auto) Lymph # (Auto) Lucas # (Auto) Seg Neutrophils % Seg Neuts % (Manual) Lymphocytes % (Manual) Monocytes % (Manual) Basophils % (Manual) Seg Neutrophils # Seg Neutrophils # Man Lymphocytes # (Manual) Monocytes # (Manual) Eosinophils # (Manual) Basophils # (Manual) PT INR D-Dimer ABG pH POC ABG pCO2 POC ABG pO2 ABG pO2 ABG HCO3 ABG O2 Saturation ABG Base Excess ABG Hemoglobin ABG Oxyhemoglobin ABG Potassium ABG Glucose Oxyhemoglobin Carboxyhemoglobin Sodium Potassium Chloride Carbon Dioxide BUN Creatinine Glucose POC Glucose 128 H 128 H 115 H Calcium Ferritin Total Bilirubin Alkaline Phosphatase Lactate Dehydrogenase Total Creatine Kinase CK-MB (CK-2) Rel Index Troponin T C-Reactive Protein Total Protein Albumin Prealbumin LDL Cholesterol Direct Arterial Blood Glucose Arterial Blood Ionized Calcium Urine WBC (Auto) 03/19/20 03/19/20 03/19/20 08:05 08:05 11:56 WBC 16.8 H RBC 3.36 L Hgb 9.4 L Hct 28.8 L MCV MCH RDW 17.4 H Plt Count 567 H Lymph % (Auto) 7.8 L Lymph # (Auto) Lucas # (Auto) 1.2 H Seg Neutrophils % 83.5 H Seg Neuts % (Manual) Lymphocytes % (Manual) Monocytes % (Manual) Basophils % (Manual) Seg Neutrophils # 14.1 H Seg Neutrophils # Man Lymphocytes # (Manual) Monocytes # (Manual) Eosinophils # (Manual) Basophils # (Manual) PT INR D-Dimer ABG pH POC ABG pCO2 POC ABG pO2 ABG pO2 ABG HCO3 ABG O2 Saturation ABG Base Excess ABG Hemoglobin ABG Oxyhemoglobin ABG Potassium ABG Glucose Oxyhemoglobin Carboxyhemoglobin Sodium Potassium Chloride Carbon Dioxide 36 H BUN Creatinine < 0.2 L Glucose 135 H POC Glucose 128 H Calcium Ferritin Total Bilirubin Alkaline Phosphatase Lactate Dehydrogenase Total Creatine Kinase CK-MB (CK-2) Rel Index Troponin T C-Reactive Protein Total Protein Albumin Prealbumin LDL Cholesterol Direct Arterial Blood Glucose Arterial Blood Ionized Calcium Urine WBC (Auto) 03/19/20 03/20/20 03/20/20 23:59 05:12 16:52 WBC RBC Hgb Hct MCV MCH RDW Plt Count Lymph % (Auto) Lymph # (Auto) Lucas # (Auto) Seg Neutrophils % Seg Neuts % (Manual) Lymphocytes % (Manual) Monocytes % (Manual) Basophils % (Manual) Seg Neutrophils # Seg Neutrophils # Man Lymphocytes # (Manual) Monocytes # (Manual) Eosinophils # (Manual) Basophils # (Manual) PT INR D-Dimer ABG pH POC ABG pCO2 POC ABG pO2 ABG pO2 ABG HCO3 ABG O2 Saturation ABG Base Excess ABG Hemoglobin ABG Oxyhemoglobin ABG Potassium ABG Glucose Oxyhemoglobin Carboxyhemoglobin Sodium Potassium Chloride Carbon Dioxide BUN Creatinine Glucose POC Glucose 120 H 131 H 124 H Calcium Ferritin Total Bilirubin Alkaline Phosphatase Lactate Dehydrogenase Total Creatine Kinase CK-MB (CK-2) Rel Index Troponin T C-Reactive Protein Total Protein Albumin Prealbumin LDL Cholesterol Direct Arterial Blood Glucose Arterial Blood Ionized Calcium Urine WBC (Auto) 03/20/20 03/21/20 03/21/20 23:35 04:50 07:35 WBC 15.2 H RBC 3.39 L Hgb 9.4 L Hct 29.4 L MCV MCH RDW 17.6 H Plt Count 518 H Lymph % (Auto) Lymph # (Auto) Lucas # (Auto) Seg Neutrophils % Seg Neuts % (Manual) 83.0 H Lymphocytes % (Manual) 10.0 L Monocytes % (Manual) Basophils % (Manual) 2.0 H Seg Neutrophils # Seg Neutrophils # Man 12.6 H Lymphocytes # (Manual) Monocytes # (Manual) Eosinophils # (Manual) Basophils # (Manual) 0.3 H PT INR D-Dimer ABG pH POC ABG pCO2 POC ABG pO2 ABG pO2 ABG HCO3 ABG O2 Saturation ABG Base Excess ABG Hemoglobin ABG Oxyhemoglobin ABG Potassium ABG Glucose Oxyhemoglobin Carboxyhemoglobin Sodium Potassium Chloride Carbon Dioxide BUN Creatinine Glucose POC Glucose 125 H 127 H Calcium Ferritin Total Bilirubin Alkaline Phosphatase Lactate Dehydrogenase Total Creatine Kinase CK-MB (CK-2) Rel Index Troponin T C-Reactive Protein Total Protein Albumin Prealbumin LDL Cholesterol Direct Arterial Blood Glucose Arterial Blood Ionized Calcium Urine WBC (Auto) 03/21/20 03/21/20 03/21/20 07:35 11:45 17:22 WBC RBC Hgb Hct MCV MCH RDW Plt Count Lymph % (Auto) Lymph # (Auto) Lucas # (Auto) Seg Neutrophils % Seg Neuts % (Manual) Lymphocytes % (Manual) Monocytes % (Manual) Basophils % (Manual) Seg Neutrophils # Seg Neutrophils # Man Lymphocytes # (Manual) Monocytes # (Manual) Eosinophils # (Manual) Basophils # (Manual) PT INR D-Dimer ABG pH POC ABG pCO2 POC ABG pO2 ABG pO2 ABG HCO3 ABG O2 Saturation ABG Base Excess ABG Hemoglobin ABG Oxyhemoglobin ABG Potassium ABG Glucose Oxyhemoglobin Carboxyhemoglobin Sodium 136 L Potassium Chloride 97.7 L Carbon Dioxide 32 H BUN Creatinine < 0.2 L Glucose 103 H POC Glucose 126 H 120 H Calcium Ferritin Total Bilirubin Alkaline Phosphatase Lactate Dehydrogenase Total Creatine Kinase CK-MB (CK-2) Rel Index Troponin T C-Reactive Protein Total Protein Albumin Prealbumin LDL Cholesterol Direct Arterial Blood Glucose Arterial Blood Ionized Calcium Urine WBC (Auto) 03/22/20 03/22/20 03/22/20 05:09 06:34 06:34 WBC 17.5 H RBC 3.52 L Hgb 10.0 L Hct 30.7 L MCV MCH RDW 17.5 H Plt Count 499 H Lymph % (Auto) Lymph # (Auto) Lucas # (Auto) Seg Neutrophils % Seg Neuts % (Manual) 80.0 H Lymphocytes % (Manual) 10.0 L Monocytes % (Manual) Basophils % (Manual) Seg Neutrophils # Seg Neutrophils # Man 14.0 H Lymphocytes # (Manual) Monocytes # (Manual) Eosinophils # (Manual) Basophils # (Manual) PT INR D-Dimer ABG pH POC ABG pCO2 POC ABG pO2 ABG pO2 ABG HCO3 ABG O2 Saturation ABG Base Excess ABG Hemoglobin ABG Oxyhemoglobin ABG Potassium ABG Glucose Oxyhemoglobin Carboxyhemoglobin Sodium Potassium Chloride 96.6 L Carbon Dioxide 38 H BUN Creatinine < 0.2 L Glucose 139 H POC Glucose 125 H Calcium Ferritin Total Bilirubin Alkaline Phosphatase Lactate Dehydrogenase Total Creatine Kinase CK-MB (CK-2) Rel Index Troponin T C-Reactive Protein Total Protein Albumin Prealbumin LDL Cholesterol Direct Arterial Blood Glucose Arterial Blood Ionized Calcium Urine WBC (Auto) 03/22/20 03/22/20 03/22/20 11:45 18:00 23:32 WBC RBC Hgb Hct MCV MCH RDW Plt Count Lymph % (Auto) Lymph # (Auto) Lucas # (Auto) Seg Neutrophils % Seg Neuts % (Manual) Lymphocytes % (Manual) Monocytes % (Manual) Basophils % (Manual) Seg Neutrophils # Seg Neutrophils # Man Lymphocytes # (Manual) Monocytes # (Manual) Eosinophils # (Manual) Basophils # (Manual) PT INR D-Dimer ABG pH POC ABG pCO2 POC ABG pO2 ABG pO2 ABG HCO3 ABG O2 Saturation ABG Base Excess ABG Hemoglobin ABG Oxyhemoglobin ABG Potassium ABG Glucose Oxyhemoglobin Carboxyhemoglobin Sodium Potassium Chloride Carbon Dioxide BUN Creatinine Glucose POC Glucose 135 H 133 H Calcium Ferritin Total Bilirubin Alkaline Phosphatase Lactate Dehydrogenase Total Creatine Kinase CK-MB (CK-2) Rel Index Troponin T 0.113 H* C-Reactive Protein Total Protein Albumin Prealbumin LDL Cholesterol Direct Arterial Blood Glucose Arterial Blood Ionized Calcium Urine WBC (Auto) 03/23/20 03/23/20 03/23/20 01:47 06:21 07:57 WBC RBC Hgb Hct MCV MCH RDW Plt Count Lymph % (Auto) Lymph # (Auto) Lucas # (Auto) Seg Neutrophils % Seg Neuts % (Manual) Lymphocytes % (Manual) Monocytes % (Manual) Basophils % (Manual) Seg Neutrophils # Seg Neutrophils # Man Lymphocytes # (Manual) Monocytes # (Manual) Eosinophils # (Manual) Basophils # (Manual) PT INR D-Dimer ABG pH POC ABG pCO2 POC ABG pO2 ABG pO2 ABG HCO3 ABG O2 Saturation ABG Base Excess ABG Hemoglobin ABG Oxyhemoglobin ABG Potassium ABG Glucose Oxyhemoglobin Carboxyhemoglobin Sodium Potassium Chloride Carbon Dioxide BUN Creatinine Glucose POC Glucose 130 H Calcium Ferritin Total Bilirubin Alkaline Phosphatase Lactate Dehydrogenase Total Creatine Kinase CK-MB (CK-2) Rel Index Troponin T 0.143 H* D 0.105 H* D C-Reactive Protein Total Protein Albumin Prealbumin LDL Cholesterol Direct Arterial Blood Glucose Arterial Blood Ionized Calcium Urine WBC (Auto) 03/23/20 03/24/20 03/24/20 12:02 05:33 07:15 WBC 18.0 H RBC Hgb 11.0 L Hct 34.0 L MCV MCH RDW 17.4 H Plt Count 520 H Lymph % (Auto) Lymph # (Auto) Lucas # (Auto) Seg Neutrophils % Seg Neuts % (Manual) 88.0 H Lymphocytes % (Manual) 7.0 L Monocytes % (Manual) Basophils % (Manual) Seg Neutrophils # Seg Neutrophils # Man 15.8 H Lymphocytes # (Manual) Monocytes # (Manual) Eosinophils # (Manual) Basophils # (Manual) PT INR D-Dimer ABG pH POC ABG pCO2 POC ABG pO2 ABG pO2 ABG HCO3 ABG O2 Saturation ABG Base Excess ABG Hemoglobin ABG Oxyhemoglobin ABG Potassium ABG Glucose Oxyhemoglobin Carboxyhemoglobin Sodium Potassium Chloride Carbon Dioxide BUN Creatinine Glucose POC Glucose 137 H 112 H Calcium Ferritin Total Bilirubin Alkaline Phosphatase Lactate Dehydrogenase Total Creatine Kinase CK-MB (CK-2) Rel Index Troponin T C-Reactive Protein Total Protein Albumin Prealbumin LDL Cholesterol Direct Arterial Blood Glucose Arterial Blood Ionized Calcium Urine WBC (Auto) 03/24/20 03/24/20 03/24/20 07:15 11:22 23:30 WBC RBC Hgb Hct MCV MCH RDW Plt Count Lymph % (Auto) Lymph # (Auto) Lucas # (Auto) Seg Neutrophils % Seg Neuts % (Manual) Lymphocytes % (Manual) Monocytes % (Manual) Basophils % (Manual) Seg Neutrophils # Seg Neutrophils # Man Lymphocytes # (Manual) Monocytes # (Manual) Eosinophils # (Manual) Basophils # (Manual) PT INR D-Dimer ABG pH POC ABG pCO2 POC ABG pO2 ABG pO2 ABG HCO3 ABG O2 Saturation ABG Base Excess ABG Hemoglobin ABG Oxyhemoglobin ABG Potassium ABG Glucose Oxyhemoglobin Carboxyhemoglobin Sodium Potassium Chloride 96.6 L Carbon Dioxide 38 H BUN Creatinine < 0.2 L Glucose 141 H POC Glucose 130 H 120 H Calcium Ferritin Total Bilirubin Alkaline Phosphatase Lactate Dehydrogenase Total Creatine Kinase CK-MB (CK-2) Rel Index Troponin T C-Reactive Protein Total Protein Albumin Prealbumin LDL Cholesterol Direct Arterial Blood Glucose Arterial Blood Ionized Calcium Urine WBC (Auto) 03/25/20 03/25/20 03/25/20 05:48 17:53 23:18 WBC RBC Hgb Hct MCV MCH RDW Plt Count Lymph % (Auto) Lymph # (Auto) Lucas # (Auto) Seg Neutrophils % Seg Neuts % (Manual) Lymphocytes % (Manual) Monocytes % (Manual) Basophils % (Manual) Seg Neutrophils # Seg Neutrophils # Man Lymphocytes # (Manual) Monocytes # (Manual) Eosinophils # (Manual) Basophils # (Manual) PT INR D-Dimer ABG pH POC ABG pCO2 POC ABG pO2 ABG pO2 ABG HCO3 ABG O2 Saturation ABG Base Excess ABG Hemoglobin ABG Oxyhemoglobin ABG Potassium ABG Glucose Oxyhemoglobin Carboxyhemoglobin Sodium Potassium Chloride Carbon Dioxide BUN Creatinine Glucose POC Glucose 124 H 109 H 131 H Calcium Ferritin Total Bilirubin Alkaline Phosphatase Lactate Dehydrogenase Total Creatine Kinase CK-MB (CK-2) Rel Index Troponin T C-Reactive Protein Total Protein Albumin Prealbumin LDL Cholesterol Direct Arterial Blood Glucose Arterial Blood Ionized Calcium Urine WBC (Auto) 03/26/20 03/26/20 03/26/20 05:21 08:49 08:49 WBC 19.7 H RBC Hgb 10.7 L Hct 33.5 L MCV MCH 27 L RDW 17.1 H Plt Count 480 H Lymph % (Auto) 5.7 L Lymph # (Auto) 1.1 L Lucas # (Auto) 1.2 H Seg Neutrophils % 87.7 H Seg Neuts % (Manual) Lymphocytes % (Manual) Monocytes % (Manual) Basophils % (Manual) Seg Neutrophils # 17.2 H Seg Neutrophils # Man Lymphocytes # (Manual) Monocytes # (Manual) Eosinophils # (Manual) Basophils # (Manual) PT INR D-Dimer ABG pH POC ABG pCO2 POC ABG pO2 ABG pO2 ABG HCO3 ABG O2 Saturation ABG Base Excess ABG Hemoglobin ABG Oxyhemoglobin ABG Potassium ABG Glucose Oxyhemoglobin Carboxyhemoglobin Sodium Potassium Chloride 97.2 L Carbon Dioxide 36 H BUN Creatinine < 0.2 L Glucose 127 H POC Glucose 116 H Calcium Ferritin Total Bilirubin Alkaline Phosphatase Lactate Dehydrogenase Total Creatine Kinase CK-MB (CK-2) Rel Index Troponin T C-Reactive Protein Total Protein Albumin Prealbumin LDL Cholesterol Direct Arterial Blood Glucose Arterial Blood Ionized Calcium Urine WBC (Auto) 03/26/20 03/26/20 03/26/20 11:38 18:44 23:06 WBC RBC Hgb Hct MCV MCH RDW Plt Count Lymph % (Auto) Lymph # (Auto) Lucas # (Auto) Seg Neutrophils % Seg Neuts % (Manual) Lymphocytes % (Manual) Monocytes % (Manual) Basophils % (Manual) Seg Neutrophils # Seg Neutrophils # Man Lymphocytes # (Manual) Monocytes # (Manual) Eosinophils # (Manual) Basophils # (Manual) PT INR D-Dimer ABG pH POC ABG pCO2 POC ABG pO2 ABG pO2 ABG HCO3 ABG O2 Saturation ABG Base Excess ABG Hemoglobin ABG Oxyhemoglobin ABG Potassium ABG Glucose Oxyhemoglobin Carboxyhemoglobin Sodium Potassium Chloride Carbon Dioxide BUN Creatinine Glucose POC Glucose 120 H 111 H 134 H Calcium Ferritin Total Bilirubin Alkaline Phosphatase Lactate Dehydrogenase Total Creatine Kinase CK-MB (CK-2) Rel Index Troponin T C-Reactive Protein Total Protein Albumin Prealbumin LDL Cholesterol Direct Arterial Blood Glucose Arterial Blood Ionized Calcium Urine WBC (Auto) 03/27/20 03/27/20 03/27/20 05:41 05:59 05:59 WBC 18.6 H RBC Hgb 10.1 L Hct 31.4 L MCV MCH RDW 17.2 H Plt Count Lymph % (Auto) 8.0 L Lymph # (Auto) Lucas # (Auto) 1.2 H Seg Neutrophils % 84.7 H Seg Neuts % (Manual) Lymphocytes % (Manual) Monocytes % (Manual) Basophils % (Manual) Seg Neutrophils # 15.8 H Seg Neutrophils # Man Lymphocytes # (Manual) Monocytes # (Manual) Eosinophils # (Manual) Basophils # (Manual) PT INR D-Dimer ABG pH POC ABG pCO2 POC ABG pO2 ABG pO2 ABG HCO3 ABG O2 Saturation ABG Base Excess ABG Hemoglobin ABG Oxyhemoglobin ABG Potassium ABG Glucose Oxyhemoglobin Carboxyhemoglobin Sodium Potassium Chloride Carbon Dioxide 34 H BUN Creatinine < 0.2 L Glucose 127 H POC Glucose 129 H Calcium Ferritin Total Bilirubin Alkaline Phosphatase Lactate Dehydrogenase Total Creatine Kinase CK-MB (CK-2) Rel Index Troponin T C-Reactive Protein Total Protein Albumin Prealbumin LDL Cholesterol Direct Arterial Blood Glucose Arterial Blood Ionized Calcium Urine WBC (Auto) 03/27/20 03/27/20 03/28/20 17:28 23:22 05:23 WBC RBC Hgb Hct MCV MCH RDW Plt Count Lymph % (Auto) Lymph # (Auto) Lucas # (Auto) Seg Neutrophils % Seg Neuts % (Manual) Lymphocytes % (Manual) Monocytes % (Manual) Basophils % (Manual) Seg Neutrophils # Seg Neutrophils # Man Lymphocytes # (Manual) Monocytes # (Manual) Eosinophils # (Manual) Basophils # (Manual) PT INR D-Dimer ABG pH POC ABG pCO2 POC ABG pO2 ABG pO2 ABG HCO3 ABG O2 Saturation ABG Base Excess ABG Hemoglobin ABG Oxyhemoglobin ABG Potassium ABG Glucose Oxyhemoglobin Carboxyhemoglobin Sodium Potassium Chloride Carbon Dioxide BUN Creatinine Glucose POC Glucose 108 H 119 H 129 H Calcium Ferritin Total Bilirubin Alkaline Phosphatase Lactate Dehydrogenase Total Creatine Kinase CK-MB (CK-2) Rel Index Troponin T C-Reactive Protein Total Protein Albumin Prealbumin LDL Cholesterol Direct Arterial Blood Glucose Arterial Blood Ionized Calcium Urine WBC (Auto) 03/28/20 03/28/20 03/28/20 10:28 10:28 11:36 WBC 23.6 H RBC 3.62 L Hgb 10.0 L Hct 30.8 L MCV MCH RDW 16.4 H Plt Count Lymph % (Auto) Lymph # (Auto) Lucas # (Auto) Seg Neutrophils % Seg Neuts % (Manual) 89.0 H Lymphocytes % (Manual) 5.0 L Monocytes % (Manual) Basophils % (Manual) Seg Neutrophils # Seg Neutrophils # Man 21.0 H Lymphocytes # (Manual) Monocytes # (Manual) 1.2 H Eosinophils # (Manual) Basophils # (Manual) 0.2 H PT INR D-Dimer ABG pH POC ABG pCO2 POC ABG pO2 ABG pO2 ABG HCO3 ABG O2 Saturation ABG Base Excess ABG Hemoglobin ABG Oxyhemoglobin ABG Potassium ABG Glucose Oxyhemoglobin Carboxyhemoglobin Sodium 134 L Potassium Chloride 94.2 L Carbon Dioxide 35 H BUN Creatinine < 0.2 L Glucose 134 H POC Glucose Calcium Ferritin Total Bilirubin Alkaline Phosphatase Lactate Dehydrogenase Total Creatine Kinase CK-MB (CK-2) Rel Index Troponin T C-Reactive Protein Total Protein Albumin Prealbumin LDL Cholesterol Direct Arterial Blood Glucose Arterial Blood Ionized Calcium Urine WBC (Auto) 39.0 H 1203/28/20 03/28/20 11:51 17:08 17:17 WBC RBC Hgb Hct MCV MCH RDW Plt Count Lymph % (Auto) Lymph # (Auto) Lucas # (Auto) Seg Neutrophils % Seg Neuts % (Manual) Lymphocytes % (Manual) Monocytes % (Manual) Basophils % (Manual) Seg Neutrophils # Seg Neutrophils # Man Lymphocytes # (Manual) Monocytes # (Manual) Eosinophils # (Manual) Basophils # (Manual) PT INR D-Dimer ABG pH POC ABG pCO2 POC ABG pO2 ABG pO2 ABG HCO3 ABG O2 Saturation ABG Base Excess ABG Hemoglobin ABG Oxyhemoglobin ABG Potassium ABG Glucose Oxyhemoglobin Carboxyhemoglobin Sodium Potassium Chloride Carbon Dioxide BUN Creatinine Glucose POC Glucose 123 H 112 H Calcium Ferritin Total Bilirubin Alkaline Phosphatase Lactate Dehydrogenase Total Creatine Kinase 47 L CK-MB (CK-2) Rel Index 4.6 H Troponin T 0.090 H C-Reactive Protein Total Protein Albumin Prealbumin LDL Cholesterol Direct Arterial Blood Glucose Arterial Blood Ionized Calcium Urine WBC (Auto) 03/28/20 03/29/20 03/29/20 23:22 05:22 10:58 WBC RBC Hgb Hct MCV MCH RDW Plt Count Lymph % (Auto) Lymph # (Auto) Lucas # (Auto) Seg Neutrophils % Seg Neuts % (Manual) Lymphocytes % (Manual) Monocytes % (Manual) Basophils % (Manual) Seg Neutrophils # Seg Neutrophils # Man Lymphocytes # (Manual) Monocytes # (Manual) Eosinophils # (Manual) Basophils # (Manual) PT INR D-Dimer ABG pH POC ABG pCO2 POC ABG pO2 ABG pO2 ABG HCO3 ABG O2 Saturation ABG Base Excess ABG Hemoglobin ABG Oxyhemoglobin ABG Potassium ABG Glucose Oxyhemoglobin Carboxyhemoglobin Sodium Potassium Chloride Carbon Dioxide BUN Creatinine Glucose POC Glucose 122 H 116 H 133 H Calcium Ferritin Total Bilirubin Alkaline Phosphatase Lactate Dehydrogenase Total Creatine Kinase CK-MB (CK-2) Rel Index Troponin T C-Reactive Protein Total Protein Albumin Prealbumin LDL Cholesterol Direct Arterial Blood Glucose Arterial Blood Ionized Calcium Urine WBC (Auto) 03/29/20 03/29/20 03/30/20 17:18 23:14 04:57 WBC RBC Hgb Hct MCV MCH RDW Plt Count Lymph % (Auto) Lymph # (Auto) Lucas # (Auto) Seg Neutrophils % Seg Neuts % (Manual) Lymphocytes % (Manual) Monocytes % (Manual) Basophils % (Manual) Seg Neutrophils # Seg Neutrophils # Man Lymphocytes # (Manual) Monocytes # (Manual) Eosinophils # (Manual) Basophils # (Manual) PT INR D-Dimer ABG pH POC ABG pCO2 POC ABG pO2 ABG pO2 ABG HCO3 ABG O2 Saturation ABG Base Excess ABG Hemoglobin ABG Oxyhemoglobin ABG Potassium ABG Glucose Oxyhemoglobin Carboxyhemoglobin Sodium Potassium Chloride Carbon Dioxide BUN Creatinine Glucose POC Glucose 111 H 114 H 130 H Calcium Ferritin Total Bilirubin Alkaline Phosphatase Lactate Dehydrogenase Total Creatine Kinase CK-MB (CK-2) Rel Index Troponin T C-Reactive Protein Total Protein Albumin Prealbumin LDL Cholesterol Direct Arterial Blood Glucose Arterial Blood Ionized Calcium Urine WBC (Auto) 03/30/20 03/30/20 03/30/20 11:38 14:47 14:47 WBC 19.9 H RBC Hgb 10.9 L Hct 34.4 L MCV MCH 27 L RDW 16.5 H Plt Count 441 H Lymph % (Auto) 6.4 L Lymph # (Auto) Lucas # (Auto) 1.4 H Seg Neutrophils % 86.1 H Seg Neuts % (Manual) Lymphocytes % (Manual) Monocytes % (Manual) Basophils % (Manual) Seg Neutrophils # 17.1 H Seg Neutrophils # Man Lymphocytes # (Manual) Monocytes # (Manual) Eosinophils # (Manual) Basophils # (Manual) PT INR D-Dimer ABG pH POC ABG pCO2 POC ABG pO2 ABG pO2 ABG HCO3 ABG O2 Saturation ABG Base Excess ABG Hemoglobin ABG Oxyhemoglobin ABG Potassium ABG Glucose Oxyhemoglobin Carboxyhemoglobin Sodium 133 L Potassium Chloride 94.6 L Carbon Dioxide 33 H BUN Creatinine < 0.2 L Glucose 194 H POC Glucose 139 H Calcium Ferritin Total Bilirubin Alkaline Phosphatase Lactate Dehydrogenase Total Creatine Kinase CK-MB (CK-2) Rel Index Troponin T C-Reactive Protein Total Protein Albumin 2.8 L Prealbumin LDL Cholesterol Direct Arterial Blood Glucose Arterial Blood Ionized Calcium Urine WBC (Auto) 03/30/20 03/31/20 17:07 05:02 WBC RBC Hgb Hct MCV MCH RDW Plt Count Lymph % (Auto) Lymph # (Auto) Lucas # (Auto) Seg Neutrophils % Seg Neuts % (Manual) Lymphocytes % (Manual) Monocytes % (Manual) Basophils % (Manual) Seg Neutrophils # Seg Neutrophils # Man Lymphocytes # (Manual) Monocytes # (Manual) Eosinophils # (Manual) Basophils # (Manual) PT INR D-Dimer ABG pH POC ABG pCO2 POC ABG pO2 ABG pO2 ABG HCO3 ABG O2 Saturation ABG Base Excess ABG Hemoglobin ABG Oxyhemoglobin ABG Potassium ABG Glucose Oxyhemoglobin Carboxyhemoglobin Sodium Potassium Chloride Carbon Dioxide BUN Creatinine Glucose POC Glucose 163 H 108 H Calcium Ferritin Total Bilirubin Alkaline Phosphatase Lactate Dehydrogenase Total Creatine Kinase CK-MB (CK-2) Rel Index Troponin T C-Reactive Protein Total Protein Albumin Prealbumin LDL Cholesterol Direct Arterial Blood Glucose Arterial Blood Ionized Calcium Urine WBC (Auto) Allied health notes reviewed: nursing
--- NOTE | 2020-03-31 15:51 | Progress Note ---
Assessment and Plan Assessment and plan: 59-year-old male patient with significant past medical history of ALS, presented to ED with worsening shortness of breath since the morning MORNING [employer]OW [employer]. Patient was on a trilogy machine for breathing 18/11. EMS arrived, patient had O2 sats in the 80s. EMS attempted to place patient on their CPAP machine, hill john patient did not tolerate. Patient was admitted to the ICU with diagnosis of acute hypoxic respiratory failure and placed on BiPAP. Patient initially tolerated but later deteriorated with respiratory status. CTA chest showed no PE but significant for bilateral pneumonia. Doppler ultrasound also negative for DVT. COVID-19 test ordered. Due to persistent hypoxia, patient was intubated on 02/26/2020 at 1500. Patient now on mechanical ventilation in the ICU. 02/26/2020. Blood cultures are negative x48 hours and Covid testing negative as well. Continue antibiotics per ID recommendations for community-acquired bilateral pneumonia. Cardiology consultation for elevated troponin. Check echocardiogram. 02/27/2020. Events of yesterday noted with asystole following V. fib arrest. Patient currently on AC mode rate 20, tidal volume 400, FiO2 50% and a PEEP of 6. Follow-up echocardiogram for elevated troponin. Cardiology suspects NSTEMI Type 2 in the setting of acute resp failure. Chest CTA and BLE Dopplers neg. we will discontinue Decadron given the Covid PCR is negative. 02/25/2020. CTA of the chest reveals no PE but does illustrate the bilateral pneumonia. Doppler ultrasound also negative for DVT. Blood cultures are pending. Await COVID-19 testing. Patient currently requiring BiPAP IPAP 24/EPAP 6 with FiO2 of 25%. Continue O2 and BiPAP as clinically indicated. ID and pulmonary consulted. 02/26/2020. Blood cultures are negative x48 hours and Covid testing negative as well. Continue antibiotics per ID recommendations for community-acquired bilateral pneumonia. Cardiology consultation for elevated troponin. Check echocardiogram. 02/27/2020. Events of yesterday noted with asystole following V. fib arrest. Patient currently on AC mode rate 20, tidal volume 400, FiO2 50% and a PEEP of 6. Follow-up echocardiogram for elevated troponin. Cardiology suspects NSTEMI Type 2 in the setting of acute resp failure. Chest CTA and BLE Dopplers neg. we will discontinue Decadron given the Covid PCR is negative. 02/28/2020. I spoke with the sister Felisa Eli who is the power of patent prosecution attorney regarding advanced directives and she instructed me that she would like to continue with aggressive care at this time. I informed her of the guarded prognosis and high mortality/morbidity and she voiced understanding. Patient currently with AC mode ventilation rate 18, tidal volume 400, FiO2 40% and a PEEP of 6. Continue antibiotics for pneumonia. ID previously consulted. Also consult neurology with regards to ALS. 02/29/2020; patient is intubated and on CPAP patient is alert and oriented. Patient has ALS. Dr. Álvarez spoke with his sister and she wants aggressive care. Continue antibiotics for pneumonia. Neurology consulted for ALS. Prognosis poor 03/01/2020; patient is intubated and on CPAP, patient is alert and oriented. I spoke with his 2 sisters about the management plan. 03/02/2020; patient is intubated and on CPAP. Patient was alert and oriented. I spoke with Dr. mohr and he thinks patient may need mechanical ventilation, likely his disease progressed. Dr. Flowers did debridement this morning. 03/03/2020; patient is intubated and on CPAP, patient was on trilogy and BiPAP at home. Patient has ALS. on spontaneous breathing trial. Patient is alert and oriented but quadriplegic. Patient has severe bilateral pneumonia and is on cefepime and Vanco, ID is following. Patient has sacral decubitus ulcer and debridement was done by Dr. lFowers and there is no osteomyelitis. 03/05. Patient still on broad-spectrum antibiotics. Status post sacral decubitus ulcer debridements-no osteomyelitis. Patient is on AC 25/400/30% PEEP 5. No blood gas results today. 03/06. Plan for tracheostomy by surgery. Still remains intubated. Labs reviewed-sodium 150. Started on free water 200 every 8hr. trend sodium. 03/07: s/p trach placement today, patient placed back on mechanical ventilation with trach. Plan to resume tube feeding with NG tube. Continue to monitor vitals, monitor BMP. 03/08: Patient noted to have distended abdomen with low urinary output. Obtain bladder scan rule out urine retention, UA and urine culture, continue to follow clinically. 03/09: Patient noted to have low blood pressure with SBP as low as 70s. Ordered for 500 mils normal saline bolus. CT abdomen showed bladder outlet obstruction, urology consulted. 03/10: placed on drake by urology o/n, improved urine outpt. cont to monitor BMP. resuded TF - cont free water with TF. wean off from vent as tolerated. 03/11: Vitals stable. cont TF, wean off from vent as tolerated. start on 1/2 NS for hypernatremia - follow BMP 03/12: wean off vent as tolerated, plan for speech eval, cont Tf for now, cont iv fluid 03/13: unable to wean off from vent, unable to do speech therapy eval. will need PEG tube, cont supportive care for now, cont NG tube feeding 03/14: consulted GI for PEg placemnet, cont supportive care. remains on vent at night 03/15: Discussed with GI, plan for PEG tube placement possibly tomorrow. Continue supportive care and wean off from vent as tolerated. Hold Lovenox dose tonight. 03/16: family didnot consent for PEG placement yesterday. I spoke with the daughter today and she is now agreeable for PEG tube. I explained the necessity of the procedure with RN to the patient also and he nodded started on tube feeding, for the procedure. will cont supportive care. planned for PEG tube placement tomorrow. 03/17: s/p PEG placement today, patient tolerated well, cont supportive care 03/18: Started on tube feeding with new PEG tube, continue to wean off vent as tolerated 03/19: cont to monitor with supportive care, wean off vent as tolerated 03/20: Continue to wean off vent as tolerated -but failing weaning trial. Still requiring vent support at night. Currently on PEG tube for tube feed. 03/21. Pt with PSV trials with FiO@ 30%, PEEP 6, PS 10. Currently on PEG tube for tube feed. 03/22/2020. Continue PSV trials per pulmonary. Continue bronchodilators. Patient tolerating tube feedings. Continue Robinul for secretion control. 03/23/2020. Continue PSV trials per pulmonary. Continue bronchodilators. Continue Scopolamine and Robinul for secretion control. Trach care/airway management. Mobility protocols for pressure ulcer prophylaxis. LTAC evaluation per case management 03/24/2020. Continue PSV trials with current settings pressure support 10, PEEP 6 and FiO2 30%. Continue bronchodilators/nebulizer. Continue Scopolamine and Robinul for secretion control. Trach care/airway management. Mobility protocols for pressure ulcer prophylaxis. LTAC evaluation per case management 03/25/2020. Pulmonary to proceed with T-piece trials today. Continue bronchodilators/nebulizer. Continue Scopolamine and Robinul for secretion control. Trach care/airway management. Mobility protocols for pressure ulcer prophylaxis. 03/26/2020. Patient currently with PSV 10/6 at FiO2 of 30%. Continue weaning and T-piece trials per protocol. Continue bronchodilators/nebulizer. Continue Scopolamine and Robinul for secretion control. Trach care/airway management. Mobility protocols for pressure ulcer prophylaxis. Continue tube feeding with aspiration precautions. 03/27/2020. Patient currently with PSV 10/6 at FiO2 of 30%. Continue weaning and T-piece trials per protocol. Continue bronchodilators/nebulizer. Continue Scopolamine and Robinul for secretion control. Trach care/airway management. Mobility protocols for pressure ulcer prophylaxis. Continue tube feeding with aspiration precautions. 03/28. Had temp 100.7F. He has been off antibiotics. Will send blood culture, ua, urine culture and chest xray. Had chest pain overnight and trop was elevated as well. Cardiology to evaluate 03/29. Has back pain due to position. He mentions his chest pain is positional. Has no other complaints. Still on mechanical ventilation 03/30. No chest pain today. Labs reviewed. Discussed chest pain with cardiology and team advised no further work up at this time. Can follow up with cardiology in the office after hospitalization 03/31. Lidocaine patch for lower back pain. The high probability of a clinically significant, sudden or life threatening deterioration of the [cardiac and respiratory] system(s) required my full and direct attention, intervention and personal management. The aggregate critical care time was [32] minutes. This time is in addition to time spent performing reported procedures but includes the following: [x] Data Review and interpretation [x] Patient assessment and monitoring of vital signs [x] Documentation [x] Medication orders and management Assessment and Plan --Acute hypoxic hypercapnic respiratory failure; Trach to vent --ALS - Stable --Elevated D-dimers; CTA chest, lower extremity venous Doppler both are negative Lovenox DVT prophylaxis --Bilateral pneumonia; probably community-acquired Resolved --Sepsis secondary to pneumonia Resolved --Elevated troponin Likely type II CA Cardiology follow up at discharge ---Fever Resolved Complete antibiotics --DVT prophylaxis; Lovenox History Interval history: Patient seen and examined at bedside Intubated Awake on vent Complains of back pain. Denies any chest pain Hospitalist Physical - Physical exam Narrative exam: VITAL SIGNS: Reviewed. GENERAL: Awake. Intubated HEAD: No signs of head trauma. EYES: Pupils are equal. Extraocular motions intact. EARS: Hearing grossly intact. MOUTH: Oropharynx is normal. NECK: No adenopathy, no JVD. CHEST: Coarse breath sounds bilaterally CARDIAC: Regular rate and rhythm. S1 and S2, without murmurs, gallops, or rubs. VASCULAR: No Edema. Peripheral pulses normal and equal in all extremities. ABDOMEN: Soft, non tender and non distended. No rebound or guarding, and no masses palpated. Bowel Sounds normal. NEUROLOGIC EXAM: Awake SKIN: No obvious lesions - Constitutional Vitals: Temp Pulse Resp BP Pulse Ox 99.8 F H 112 H 17 126/84 97 03/31/20 03:32 03/31/20 15:00 03/31/20 12:00 03/31/20 15:00 03/31/20 15:00 HEART Score - HEART Score Troponin: Troponin T 0.090 ng/mL (0.00-0.029) H 03/28/20 17:17 Results - Labs CBC & Chem 7: 03/30/20 14:47 03/30/20 14:47 Labs: Laboratory Last Values WBC 19.9 K/mm3 (4.5-11.0) H 03/30/20 14:47 RBC 4.01 M/mm3 (3.65-5.03) 03/30/20 14:47 Hgb 10.9 gm/dl (11.8-15.2) L 03/30/20 14:47 Hct 34.4 % (35.5-45.6) L 03/30/20 14:47 MCV 86 fl (84-94) 03/30/20 14:47 MCH 27 pg (28-32) L 03/30/20 14:47 MCHC 32 % (32-34) 03/30/20 14:47 RDW 16.5 % (13.2-15.2) H 03/30/20 14:47 Plt Count 441 K/mm3 (140-440) H 03/30/20 14:47 Lymph % (Auto) 6.4 % (13.4-35.0) L 03/30/20 14:47 Cataño % (Auto) 7.2 % (0.0-7.3) 03/30/20 14:47 Eos % (Auto) 0.1 % (0.0-4.3) 03/30/20 14:47 Baso % (Auto) 0.2 % (0.0-1.8) 03/30/20 14:47 Lymph # (Auto) 1.3 K/mm3 (1.2-5.4) 03/30/20 14:47 Cataño # (Auto) 1.4 K/mm3 (0.0-0.8) H 03/30/20 14:47 Eos # (Auto) 0.0 K/mm3 (0.0-0.4) 03/30/20 14:47 Baso # (Auto) 0.0 K/mm3 (0.0-0.1) 03/30/20 14:47 Add Manual Diff Complete 03/28/20 10:28 Total Counted 100 03/28/20 10:28 Seg Neutrophils % 86.1 % (40.0-70.0) H 03/30/20 14:47 Seg Neuts % (Manual) 89.0 % (40.0-70.0) H 03/28/20 10:28 Band Neutrophils % 0 % 03/28/20 10:28 Lymphocytes % (Manual) 5.0 % (13.4-35.0) L 03/28/20 10:28 Reactive Lymphs % (Man) 0 % 03/28/20 10:28 Monocytes % (Manual) 5.0 % (0.0-7.3) 03/28/20 10:28 Eosinophils % (Manual) 0 % (0.0-4.3) 03/28/20 10:28 Basophils % (Manual) 1.0 % (0.0-1.8) 03/28/20 10:28 Metamyelocytes % 0 % 03/28/20 10:28 Myelocytes % 0 % 03/28/20 10:28 Promyelocytes % 0 % 03/28/20 10:28 Blast Cells % 0 % 03/28/20 10:28 Nucleated RBC % Not Reportable 03/28/20 10:28 Seg Neutrophils # 17.1 K/mm3 (1.8-7.7) H 03/30/20 14:47 Seg Neutrophils # Man 21.0 K/mm3 (1.8-7.7) H 03/28/20 10:28 Band Neutrophils # 0.0 K/mm3 03/28/20 10:28 Lymphocytes # (Manual) 1.2 K/mm3 (1.2-5.4) 03/28/20 10:28 Abs React Lymphs (Man) 0.0 K/mm3 03/28/20 10:28 Monocytes # (Manual) 1.2 K/mm3 (0.0-0.8) H 03/28/20 10:28 Eosinophils # (Manual) 0.0 K/mm3 (0.0-0.4) 03/28/20 10:28 Basophils # (Manual) 0.2 K/mm3 (0.0-0.1) H 03/28/20 10:28 Metamyelocytes # 0.0 K/mm3 03/28/20 10:28 Myelocytes # 0.0 K/mm3 03/28/20 10:28 Promyelocytes # 0.0 K/mm3 03/28/20 10:28 Blast Cells # 0.0 K/mm3 03/28/20 10:28 WBC Morphology Not Reportable 03/28/20 10:28 Hypersegmented Neuts Not Reportable 03/28/20 10:28 Hyposegmented Neuts Not Reportable 03/28/20 10:28 Hypogranular Neuts Not Reportable 03/28/20 10:28 Smudge Cells Not Reportable 03/28/20 10:28 Toxic Granulation 1+ 03/28/20 10:28 Toxic Vacuolation Not Reportable 03/28/20 10:28 Dohle Bodies Not Reportable 03/28/20 10:28 Pelger-Huet Anomaly Not Reportable 03/28/20 10:28 Robert Rods Not Reportable 03/28/20 10:28 Platelet Estimate Consistent w auto 03/28/20 10:28 Clumped Platelets Not Reportable 03/28/20 10:28 Plt Clumps, EDTA Not Reportable 03/28/20 10:28 Large Platelets Not Reportable 03/28/20 10:28 Giant Platelets Not Reportable 03/28/20 10:28 Platelet Satelliting Not Reportable 03/28/20 10:28 Plt Morphology Comment Not Reportable 03/28/20 10:28 RBC Morphology Not Reportable 03/28/20 10:28 Dimorphic RBCs Not Reportable 03/28/20 10:28 Polychromasia Not Reportable 03/28/20 10:28 Hypochromasia Not Reportable 03/28/20 10:28 Poikilocytosis Not Reportable 03/28/20 10:28 Anisocytosis 1+ 03/28/20 10:28 Microcytosis Not Reportable 03/28/20 10:28 Macrocytosis Not Reportable 03/28/20 10:28 Spherocytes Not Reportable 03/28/20 10:28 Pappenheimer Bodies Not Reportable 03/28/20 10:28 Sickle Cells Not Reportable 03/28/20 10:28 Target Cells Not Reportable 03/28/20 10:28 Tear Drop Cells Not Reportable 03/28/20 10:28 Ovalocytes Not Reportable 03/28/20 10:28 Stomatocytes Few 03/17/20 04:40 Helmet Cells Not Reportable 03/28/20 10:28 Gregory-Eff[place] Bodies Not Reportable 03/28/20 10:28 [place] Rings Not Reportable 03/28/20 10:28 [place] Cells Not Reportable 03/28/20 10:28 Bite Cells Not Reportable 03/28/20 10:28 Crenated Cell Not Reportable 03/28/20 10:28 Elliptocytes Not Reportable 03/28/20 10:28 Acanthocytes (Spur) Not Reportable 03/28/20 10:28 Rouleaux Not Reportable 03/28/20 10:28 Hemoglobin C Crystals Not Reportable 03/28/20 10:28 Schistocytes Not Reportable 03/28/20 10:28 Malaria parasites Not Reportable 03/28/20 10:28 Colton Bodies Not Reportable 03/28/20 10:28 Hem Pathologist Commnt No 03/28/20 10:28 PT 15.6 Sec. (12.2-14.9) H 02/24/20 09:19 INR 1.21 (0.87-1.13) H 02/24/20 09:19 APTT 25.4 Sec. (24.2-36.6) 02/24/20 09:19 D-Dimer 1311.96 ng/mlDDU (0-234) H 02/24/20 09:19 ABG pH 7.371 (7.320-7.450) 03/08/20 12:34 POC ABG pCO2 63.1 mmHg (32.0-48.0) H 03/08/20 12:34 ABG pCO2 60.1 mm Hg 03/06/20 04:34 POC ABG pO2 90.5 mmHg (83-108) 03/08/20 12:34 ABG pO2 88.6 mm Hg (80.0-90.0) 03/06/20 04:34 POC ABG HCO3 35.7 03/08/20 12:34 ABG HCO3 37.9 mmol/L (20.0-26.0) H 03/06/20 04:34 ABG O2 Saturation 97.0 % (95.0-99.0) 03/06/20 04:34 ABG O2 Content 14.3 (0.0-44) 03/06/20 04:34 POC ABG Base Excess 8.7 03/08/20 12:34 ABG Base Excess 11.4 mmol/L (-2.0-3.0) H 03/06/20 04:34 ABG Hemoglobin 10.9 (12.0-17.5) L 03/08/20 12:34 ABG Oxyhemoglobin 95.9 (94-98) 03/08/20 12:34 ABG Carboxyhemoglobin 1.7 % (0.0-5.0) 03/06/20 04:34 ABG Methemoglobin 0.3 (0.0-1.5) 03/08/20 12:34 ABG Sodium 143.6 mmol/L (136.0-145.0) 03/08/20 12:34 ABG Potassium 3.8 mmol/L (3.40-4.50) 03/08/20 12:34 ABG Chloride 102.0 mmol/L (98-107) 03/08/20 12:34 ABG Glucose 176 mg/dL (65-95) H 03/08/20 12:34 Oxyhemoglobin 94.7 % (95.0-99.0) L 03/06/20 04:34 Carboxyhemoglobin 0.7 (0.5-1.5) 03/08/20 12:34 FiO2 30 03/08/20 12:34 Sodium 133 mmol/L (137-145) L 03/30/20 14:47 Potassium 4.7 mmol/L (3.6-5.0) 03/30/20 14:47 Chloride 94.6 mmol/L (98-107) L 03/30/20 14:47 Carbon Dioxide 33 mmol/L (22-30) H 03/30/20 14:47 Anion Gap 10 mmol/L 03/30/20 14:47 BUN 16 mg/dL (9-20) 03/30/20 14:47 Creatinine < 0.2 mg/dL (0.8-1.3) L 03/30/20 14:47 Estimated GFR > 60 ml/min 03/30/20 14:47 BUN/Creatinine Ratio 80 % 03/30/20 14:47 Glucose 194 mg/dL (75-100) H 03/30/20 14:47 POC Glucose 110 mg/dL (70-105) H 03/31/20 15:21 Lactic Acid 1.00 mmol/L (0.7-2.0) 02/24/20 12:07 Calcium 9.1 mg/dL (8.4-10.2) 03/30/20 14:47 Phosphorus 3.30 mg/dL (2.5-4.5) 03/29/20 14:35 Magnesium 2.00 mg/dL (1.7-2.3) 03/29/20 14:35 Ferritin 1715.0 ng/mL (30.0-300.0) H 02/24/20 10:01 Total Bilirubin 0.40 mg/dL (0.1-1.2) 03/30/20 14:47 AST 22 units/L (5-40) 03/30/20 14:47 ALT 16 units/L (7-56) 03/30/20 14:47 Alkaline Phosphatase 78 units/L (35-129) 03/30/20 14:47 Lactate Dehydrogenase 303 units/L (91-180) H 02/24/20 09:19 Total Creatine Kinase 47 units/L (55-170) L 03/28/20 17:17 CK-MB (CK-2) 2.2 ng/mL (0.0-4.0) 03/28/20 17:17 CK-MB (CK-2) Rel Index 4.6 (0-4) H 03/28/20 17:17 Troponin T 0.090 ng/mL (0.00-0.029) H 03/28/20 17:17 C-Reactive Protein 4.70 mg/dL (0.00-1.30) H 02/28/20 11:05 NT-Pro-B Natriuret Pep 48.30 pg/mL (0-900) 02/24/20 09:19 Total Protein 7.7 g/dL (6.3-8.2) 03/30/20 14:47 Albumin 2.8 g/dL (3.9-5) L 03/30/20 14:47 Albumin/Globulin Ratio 0.6 % 03/30/20 14:47 Prealbumin 0.090 g/L (0.200-0.400) L 02/28/20 12:54 Triglycerides 34 mg/dL (2-149) 03/22/20 18:00 Cholesterol 104 mg/dL (50-199) 03/22/20 18:00 LDL Cholesterol Direct 54 mg/dL (50-130) 03/22/20 18:00 HDL Cholesterol 40 mg/dL (40-59) 03/22/20 18:00 Cholesterol/HDL Ratio 2.60 % 03/22/20 18:00 Procalcitonin < 0.05 ng/mL (<0.15) 03/28/20 17:12 Arterial Blood Glucose 176 mg/dL (65-95) H 03/08/20 12:34 Arterial Blood Ionized Calcium 4.5 mg/dL (4.6-5.3) L 03/08/20 12:34 Urine Color Yellow (Yellow) 03/28/20 11:36 Urine Turbidity Hazy (Clear) 03/28/20 11:36 Urine pH 5.0 (5.0-7.0) 03/28/20 11:36 Ur Specific [place] 1.026 (1.003-1.030) 03/28/20 11:36 Urine Protein 100 mg/dl mg/dL (Negative) 03/28/20 11:36 Urine Glucose (UA) Neg mg/dL (Negative) 03/28/20 11:36 Urine Ketones Neg mg/dL (Negative) 03/28/20 11:36 Urine Blood Neg (Negative) 03/28/20 11:36 Urine Nitrite Neg (Negative) 03/28/20 11:36 Urine Bilirubin Neg (Negative) 03/28/20 11:36 Urine Urobilinogen 4.0 mg/dL (<2.0) 03/28/20 11:36 Ur Leukocyte Esterase Mod (Negative) 03/28/20 11:36 Urine WBC (Auto) 39.0 /HPF (0.0-6.0) H 03/28/20 11:36 Urine RBC (Auto) 16.0 /HPF (0.0-6.0) 03/28/20 11:36 U Epithel Cells (Auto) < 1.0 /HPF (0-13.0) 03/08/20 08:57 Urine Bacteria (Auto) 2+ /HPF (Negative) 03/28/20 11:36 Urine Mucus 3+ /HPF 03/28/20 11:36 Urine Yeast (Budding) 2+ /HPF 03/28/20 11:36 Vancomycin Trough 8.0 ug/mL (5.0-20.0) 03/04/20 08:59 Coronavirus (PCR) Negative (Negative) 02/25/20 09:03 Microbiology: Microbiology 03/28/20 17:12 Peripheral/Venous Blood Culture - Preliminary NO GROWTH AFTER 48 HOURS 03/28/20 17:12 Peripheral/Venous Blood Culture - Preliminary NO GROWTH AFTER 48 HOURS 03/28/20 11:36 Urine,Clean Catch Urine Culture - Final - Diagnostic Impressions Diagnostic Impressions: Echocardiogram 02/26/20 10:41 Transthoracic Echocardiogram Indication: Elevated Trop BP: 116/75 HR: 85 Conclusions *Global left ventricular wall motion and contractility are within normal limits. *The estimated ejection fraction is 50-55%. *Abnormal left ventricular diastolic filling is observed, consistent with impaired relaxation. *There is no pericardial effusion. Findings Left Ventricle: The left ventricular chamber size is normal. Global left ventricular wall motion and contractility are within normal limits. Global left ventricular systolic function is normal. The estimated ejection fraction is 50-55%. Abnormal left ventricular diastolic filling is observed, consistent with impaired relaxation. Left Atrium: The left atrial chamber size is normal. Right Ventricle: The right ventricular cavity size is normal. Right Atrium: The right atrial cavity size is normal. Aortic Valve: Mild aortic leaflet calcification is visualized. There is no evidence of aortic regurgitation. Mitral Valve: The mitral valve leaflets are mildly thickened. There is no evidence of mitral regurgitation. Tricuspid Valve: The tricuspid valve leaflets are normal. There is trace tricuspid regurgitation. The right ventricular systolic pressure is calculated at 29 mmHg. Pulmonic Valve: The pulmonic valve is not well visualized. Pericardium: There is no pericardial effusion. Aorta: The aorta appears normal. Venous: The inferior vena cava is dilated. There is less than 50% respiratory change in the inferior vena cava dimension. Measurements Chambers 2D Name Value Normal Range IVSd (2D) 0.97 cm (0.6 - 1.1) LVPWd (2D) 0.93 cm (0.6 - 1.1) LVIDd (2D) 4 cm (3.7 - 5.6) LVIDs (2D) 2.73 cm (2 - 3.8) LV FS (2D) 31.67 % - EF Teichholz (2D) 60.23 % - Ao root diameter (2D) 3.51 cm (2 - 3.7) Volumes/Mass Name Value Normal Range LA ESV SP 4CH (A/L) 8.43 ml - LA ESV SP 2CH (A/L) 18.89 ml - LA ESV BP (A/L) 13.02 ml - LA ESV BP (A/L) index 8.8 ml/m2 - LA ESV SP 4CH (MOD) 7.22 ml - LA ESV SP 2CH (MOD) 18.15 ml - LA ESV BP (MOD) 11.47 ml - LA ESV BP (MOD) index 7.75 ml/m2 - Diastolic/Systolic Function Name Value Normal Range MV E-wave Vmax 0.51 m/sec - MV deceleration time 180.22 msec - MV A-wave Vmax 0.62 m/sec - MV E:A ratio 0.82 ratio - Aortic Valve Name Value Normal Range AV Vmax 1.17 m/sec - AV VTI 19.71 cm - AV peak gradient 5.44 mmHg - AV mean gradient 3.38 mmHg - LVOT diameter 2.26 cm - LVOT Vmax 0.89 m/sec - LVOT VTI 13.72 cm - LVOT peak gradient 3.17 mmHg - LVOT mean gradient 1.67 mmHg - SV LVOT 55.03 ml - SHARAD (continuity Vmax) 3.06 cm2 - SHARAD (continuity VTI) 2.79 cm2 - Tricuspid Valve Name Value Normal Range TR Vmax 2.3 m/sec - TR peak gradient 21 mmHg - RAP 8 mmHg - RVSP 29 mmHg - IVC diameter 2.59 cm (1.2 - 2.3) Pulmonic Valve/Qp:Qs Name Value Normal Range PV acceleration time 68.51 msec - Drake/IV: Voiding Method Indwelling Catheter IV Catheter Type [Left Hand] Peripheral IV IV Catheter Type [Right Hand] Peripheral IV IV Catheter Type [Left Wrist] Peripheral IV IV Catheter Type [Right Peripheral IV Forearm] IV Catheter Type [Right Triple Lumen Cath Internal Jugular] IV Catheter Type [Left Forearm INT / Saline Lock ] IV Catheter Type [Right Triple Lumen Cath Femoral] IV Catheter Type [Right INT / Saline Lock Antecubital] Active Medications - Current Medications Current Medications: Generic Name Dose Route Start Last Admin Trade Name Freq PRN Reason Stop Dose Admin Acetaminophen 650 mg 02/24/20 15:13 03/08/20 00:10 Tylenol PO 650 mg Q4H PRN Administration Pain, Mild (1-3) Albuterol 2.5 mg 02/24/20 15:13 Proventil IH Q4HRT PRN Shortness Of Breath Alprazolam 0.5 mg 03/30/20 14:19 03/30/20 14:32 Xanax PO 0.5 mg Q8H PRN Administration Anxiety Lipase/Protease/Amylase 1 each 02/26/20 11:16 Pancreaze 10,500 Unit FEEDTUBE PRN PRN For Clogged Feeding Tube Bisacodyl 10 mg 03/12/20 18:00 03/15/20 17:50 Dulcolax [place] 10 mg QDAY PRN Administration Bowel Movement Enoxaparin Sodium 40 mg 03/20/20 22:00 03/30/20 21:20 Enoxaparin SUB-Q 40 mg QDAY@2200 ALISA Administration Protocol Glycopyrrolate 2 mg 03/26/20 08:00 03/31/20 14:16 Robinul PO 2 mg TID ALISA Administration Lansoprazole 30 mg 02/28/20 10:00 03/31/20 09:23 Prevacid Solutab FEEDTUBE 30 mg QDAY ALISA Administration Lidocaine 1 each 03/31/20 10:00 03/31/20 10:26 Lidoderm 5% TD 1 each QDAY ALISA Administration Metoprolol Tartrate 12.5 mg 02/24/20 22:00 03/31/20 09:22 Metoprolol PO 12.5 mg BID ALISA Administration Morphine Sulfate 2 mg 02/29/20 16:42 03/31/20 11:25 Morphine IV 2 mg Q4H PRN Administration Pain, Moderate (4-6) Scopolamine 1 each 03/03/20 14:00 03/30/20 09:15 Transderm-Scop TD 1 each Q3D ALISA Administration Simple Syrup 15 ml 02/26/20 11:16 Simple Syrup FEEDTUBE PRN PRN Hypoglycemia Simple Syrup 30 ml 02/26/20 11:16 Simple Syrup FEEDTUBE PRN PRN Hypoglycemia Sodium Bicarbonate 325 mg 02/26/20 11:16 Sodium Bicarbonate FEEDTUBE PRN PRN For Clogged Feeding Tube Sodium Hypochlorite 1 applic 03/31/20 13:00 Dakin's Half Strength TP BID ALISA Tamsulosin HCl 0.4 mg 03/09/20 18:00 03/31/20 09:22 Flomax PO 0.4 mg QDAY ALISA Administration Zolpidem Tartrate 10 mg 04/03/20 14:20 Ambien PO QHS PRN Sleep Nutrition/Malnutrition Assess - Dietary Evaluation Nutrition/Malnutrition Findings: Nutrition Notes Start: 02/26/20 10:40 Freq: Status: Active Protocol: Document 03/28/20 11:24 EN (Rec: 03/28/20 11:50 EN [id number]) Co-Sign 03/28/20 11:24 NHALL Nutrition Notes Initial or Follow up Reassessment Current Diagnosis Decubitus(Pressure Ulcer), Sepsis,Respiratory Failure Other Pertinent Diagnosis COVID-19 (-), ALS, pneumonia, Hip/buttock PU Current Diet Vital AF 1.2 at 75ml/hr (goal rate) Labs/Tests Reviewed Pertinent Medications Reviewed Height 6 ft Weight 66 kg [place] Body Weight (kg) 80.90 BMI 19.7 Weight Status Appropriate Subjective/Other Information Pt continues tolerating TF at goal rate. 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 Yes Is Patient Ambulatory and/or Out of Bed No REE-(Garland-St. Jeor-confined to bed) 1820.472 Kcal/Kg value to use for calculation 35 Approximate Energy Requirements Using 2310 kcal/Kg Calculation Used for Recommendations Kcal/kg Additional Notes Protein needs: 88-147 g (1.2-2 g/ kg ABW) Fluid: 1ml/kcal Nutrition Intervention Change Diet Order: Continue TF Nutrition Support: Vital AF 1.2 at 75ml/hr. Flush 200ml q4h For hyponatremia, flush 150 mL q4h Kcal 2,160 Protein (gm) 135 Fluid (mL) 1,460 Add Supplement/Snack (indicate name/kcal Will BID /protein ) Provides kCal: 190 Provides Protein (gm) 5 Goal #1 Meet at least 80% of energy and protein needs via TF Goal #2 Wound healing Anticipated Discharge Needs: Unable to determine at this time Follow-Up By: 04/04/20 Additional Comments Follow for stable TF
[2020-03-31] MEDS: ZOLPIDEM 5 MG TAB PO PRN (20:59)
[2020-03-31] MEDS: ENOXAPARIN 40 MG/0.4 ML INJ SUB-Q SCH (20:59)
[2020-03-31] MEDS: ALPRAZolam 0.5 MG TAB PO PRN (23:05)
[2020-04-01] MEDS: MORPHINE 2 MG/1 ML INJ IV PRN ×4 (01:30→23:32)
[2020-04-01] MEDS: GLYCOPYRROLATE 1 MG TAB PO SCH ×3 (09:10→21:28)
[2020-04-01] MEDS: METOPROLOL TARTRATE 25 MG TAB PO SCH ×2 (09:38→21:28)
[2020-04-01] MEDS: TAMSULOSIN 0.4 MG CAP PO SCH (09:38)
[2020-04-01] MEDS: LANSOPRAZOLE 30 MG SOLUTAB FEEDTUBE SCH (09:39)
[2020-04-01] MEDS: ALPRAZolam 0.5 MG TAB PO PRN (09:39)
[2020-04-01] MEDS: SODIUM HYPOCHLORITE, DAKIN'S 1/2 STRENGTH (0.25%) 473 ML TOPICAL SOLN TP SCH ×2 (09:40→21:30)
[2020-04-01] MEDS: LIDOCAINE 5% 1 EACH PATCH TD SCH (10:34)
--- NOTE | 2020-04-01 13:39 | Progress Note ---
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 Respiratory Failure Severe Sepsis with Shock Bilateral Pneumonia (Possible aspiration) History of ALS on Trilogy Oropharyngeal Dysphagia PUI-COVID Acute toxic metabolic encephalopathy Elevated D-dimer Elevated troponin possibly type 2 ischemia - continue daytime t-piece trial attempts as tolerated (PSV if fails) - LTAC evaluation - may become long term care social worker vent dependent but too early to classify as such - continue ambien 10 mg qhs prn - continue xanax 0.5 mg po q8h prn - LTAC evaluation - continue care as below otherwise; - agrees to possible LTAC transfer while he is trying to find family members that may be trained for home ventilator support - wants us to talk to his "? personal residential case manager" (case management trying to reach her) - continue to rest on AC overnight for now - continue to optimize electrolytes (prn BMP, Mg & PO4) - repeat CXR prn +/- bronchoscopy for mucus plugging / large volume atelectasis - continue to rest on AC qhs - LTAC evaluation is appropriate - continue Robinul & scopolamine for secretion control - prn electrolytes and optimize K+ & Mg 2+ for best respiratory muscle function - wound care per RN/WCN - continue Scopolamine patch for secretion control - wean supplemental oxygen for target O2 sat's > 92% acutely - bronchodilators with pulmonary hygiene per RT - VAP bundle addressed - continue lung protective strategies - continue bronchodilators with pulmonary hygiene per RT - wean per pulmonary driven protocols otherwise - sedation prn for target RASS 0 to -1 - s/p empiric antiinfectives per ID rec's (Rocephin and Zithromax) - s/p COVID-19 isolation (Airborne & Contact) - empiric Dexamethasone - follow COVID-19 test results (negative) - trend inflammatory markers to aid clinical decision making - enteral nutrition at goal rate as tolerated - Aspiration precautions - accuchecks with glycemic control per SSI (While critically ill target blood glucose of 140-180 mg/dL; avoid hypoglycemia) - avoid nephrotoxins, renally dose all medications - avoid benzodiazepine's, reduce the possibility of delirium - prn analgesia per CPOT score - Maintenance of sleep-wake cycle, avoid delirium - aspiration precautions - G.I. & VTE prophylaxis - PT/OT/ROM exercises - mobility protocols for pressure ulcer prophylaxis - Monitor hemodynamics closely - continue other care per attending / other consultants - discharge planning ongoing concurrently .... Re-evaluate in am & prn CONDITION: CRITICAL PROGNOSIS: GUARDED CODE STATUS: FULL CODE The high probability of a clinically significant, sudden or life-threatening deterioration of the [respiratory, cardiovascular & neurologic] system(s) required my full and direct attention, intervention and personal management. The aggregate critical care time was [32] minutes without overlap. Time includes spent on; [x] Data Review and interpretation [x] Patient assessment and monitoring of vital signs [x] Documentation [x] Medication orders and management Subjective Date of service: 04/01/20 Principal diagnosis: Ac on Ch Hypercapnic & hypoxemic Resp Failure; Severe Sepsis; Jamar PNA; ALS Interval history: Patient is seen today for: Acute on Chronic Hypercapnic & hypoxemic Respiratory Failure; Severe Sepsis with Shock; Bilateral Pneumonia (Possible aspiration); History of ALS on Trilogy; PUI-COVID; Acute toxic metabolic encephalopathy Seen and examined at bedside; 24hour events reviewed; nursing and respiratory care staff consulted; no adverse overnight events reported to me; resting in bed; remains on MVS; on PSV 8/6 and tolerating well; discharge planning ongoing; no new issues otherwise Objective Vital Signs - 12hr 04/01/20 04/01/20 04/01/20 01:45 02:00 02:15 Temperature Pulse Rate 101 H 105 H 107 H Pulse Rate [ From Monitor] Respiratory 15 20 19 Rate Blood Pressure 131/88 137/86 137/86 O2 Sat by Pulse 98 99 Oximetry O2 Sat by Pulse Oximetry [ Assessment] 04/01/20 04/01/20 04/01/20 02:30 02:45 03:00 Temperature Pulse Rate 109 H 106 H 105 H Pulse Rate [ From Monitor] Respiratory 13 17 18 Rate Blood Pressure 133/87 133/87 134/84 O2 Sat by Pulse 98 99 Oximetry O2 Sat by Pulse Oximetry [ Assessment] 04/01/20 04/01/20 04/01/20 03:12 03:15 03:30 Temperature 98.9 F Pulse Rate 102 H 108 H Pulse Rate [ From Monitor] Respiratory 18 18 Rate Blood Pressure 134/84 137/89 O2 Sat by Pulse 98 98 Oximetry O2 Sat by Pulse Oximetry [ Assessment] 04/01/20 04/01/20 04/01/20 03:45 04:00 04:15 Temperature Pulse Rate 108 H 109 H 108 H Pulse Rate [ 108 H From Monitor] Respiratory 15 22 15 Rate Blood Pressure 137/89 136/86 136/86 O2 Sat by Pulse 98 98 98 Oximetry O2 Sat by Pulse Oximetry [ Assessment] 04/01/20 04/01/20 04/01/20 04:30 04:45 04:51 Temperature Pulse Rate 110 H 113 H 107 H Pulse Rate [ From Monitor] Respiratory 18 21 Rate Blood Pressure 130/87 130/87 130/87 O2 Sat by Pulse 97 98 98 Oximetry O2 Sat by Pulse Oximetry [ Assessment] 04/01/20 04/01/20 04/01/20 04:57 05:00 05:15 Temperature Pulse Rate 106 H 103 H Pulse Rate [ From Monitor] Respiratory 15 17 Rate Blood Pressure 130/86 130/86 O2 Sat by Pulse 96 97 Oximetry O2 Sat by Pulse 98 Oximetry [ Assessment] 04/01/20 04/01/20 04/01/20 05:30 05:34 05:45 Temperature 98.8 F Pulse Rate 102 H 107 H Pulse Rate [ From Monitor] Respiratory 16 18 Rate Blood Pressure 126/84 126/84 O2 Sat by Pulse 98 Oximetry O2 Sat by Pulse Oximetry [ Assessment] 04/01/20 04/01/20 04/01/20 06:00 06:15 06:30 Temperature Pulse Rate 95 H 109 H 119 H Pulse Rate [ From Monitor] Respiratory 15 18 27 H Rate Blood Pressure 129/74 129/74 134/87 O2 Sat by Pulse 95 99 98 Oximetry O2 Sat by Pulse Oximetry [ Assessment] 04/01/20 04/01/20 04/01/20 06:45 07:00 07:15 Temperature Pulse Rate 117 H 102 H 104 H Pulse Rate [ From Monitor] Respiratory 21 16 16 Rate Blood Pressure 134/87 124/81 124/81 O2 Sat by Pulse 99 98 99 Oximetry O2 Sat by Pulse Oximetry [ Assessment] 04/01/20 04/01/20 04/01/20 07:30 07:45 08:00 Temperature 98.4 F Pulse Rate 106 H 108 H 109 H Pulse Rate [ 104 H From Monitor] Respiratory 16 15 20 Rate Blood Pressure 127/83 127/83 129/86 O2 Sat by Pulse 96 99 99 Oximetry O2 Sat by Pulse Oximetry [ Assessment] 12/05/20 12/05/20 12/05/20 08:15 08:24 08:30 Temperature Pulse Rate 100 H 111 H 108 H Pulse Rate [ From Monitor] Respiratory 16 29 H 25 H Rate Blood Pressure 129/86 129/86 134/93 O2 Sat by Pulse 99 99 98 Oximetry O2 Sat by Pulse Oximetry [ Assessment] 04/01/20 04/01/20 04/01/20 08:45 09:00 09:15 Temperature Pulse Rate 103 H 106 H 106 H Pulse Rate [ From Monitor] Respiratory 28 H 28 H 29 H Rate Blood Pressure 134/93 136/91 136/91 O2 Sat by Pulse 99 99 Oximetry O2 Sat by Pulse Oximetry [ Assessment] 04/01/20 04/01/20 04/01/20 09:31 09:38 09:45 Temperature Pulse Rate 111 H 104 H 101 H Pulse Rate [ From Monitor] Respiratory 39 H 27 H Rate Blood Pressure 166/99 166/99 142/91 O2 Sat by Pulse 91 98 Oximetry O2 Sat by Pulse Oximetry [ Assessment] 04/01/20 04/01/20 04/01/20 10:00 10:15 10:30 Temperature Pulse Rate 94 H 97 H 96 H Pulse Rate [ From Monitor] Respiratory 26 H 25 H 24 Rate Blood Pressure 130/87 130/87 130/87 O2 Sat by Pulse 98 98 99 Oximetry O2 Sat by Pulse Oximetry [ Assessment] 04/01/20 04/01/20 04/01/20 10:46 11:00 11:15 Temperature Pulse Rate 96 H 93 H 104 H Pulse Rate [ From Monitor] Respiratory 28 H 20 36 H Rate Blood Pressure 136/92 136/92 155/98 O2 Sat by Pulse 98 78 L 81 L Oximetry O2 Sat by Pulse Oximetry [ Assessment] 04/01/20 04/01/20 04/01/20 11:30 11:46 11:54 Temperature Pulse Rate 109 H 106 H 108 H Pulse Rate [ From Monitor] Respiratory 27 H 24 22 Rate Blood Pressure 134/91 134/91 125/77 O2 Sat by Pulse 88 94 97 Oximetry O2 Sat by Pulse Oximetry [ Assessment] 04/01/20 04/01/20 04/01/20 12:00 12:04 12:16 Temperature 98 F Pulse Rate 109 H 104 H Pulse Rate [ 107 H From Monitor] Respiratory 20 31 H Rate Blood Pressure 125/77 125/77 O2 Sat by Pulse 94 96 Oximetry O2 Sat by Pulse 97 Oximetry [ Assessment] 04/01/20 04/01/20 04/01/20 12:30 12:46 13:00 Temperature Pulse Rate 105 H 108 H 106 H Pulse Rate [ From Monitor] Respiratory 26 H 27 H 30 H Rate Blood Pressure 134/85 134/85 137/90 O2 Sat by Pulse 93 98 94 Oximetry O2 Sat by Pulse Oximetry [ Assessment] Constitutional: no acute distress, other (thin middle aged male with normal respiratory effort at rest on MVS) Eyes: non-icteric ENT: oropharynx moist, other (S/P Tracheostomy) Neck: supple, no lymphadenopathy, no JVD Effort: mildly labored Ascultation: Bilateral: clear Percussion: Bilateral: not dull Cardiovascular: regular rate and rhythm, other (S1,S2, no murmurs) Gastrointestinal: normoactive bowel sounds, soft, non-tender, non-distended, other (+ distended but non tender suprapubis) Integumentary: normal, decubitus ulcer (sacral / gluteal) Extremities: no cyanosis, no edema, pulses normal, other (atrophic looking limbs) Neurologic: pupils equal and round, other (motor strength in extremities 1-2/5, awake, alert, mouths words to make needs known) Psychiatric: mood appropriate, affect normal CBC and BMP: 03/30/20 14:47 03/30/20 14:47 ABG, PT/INR, D-dimer: ABG ABG pH 7.371 (7.320-7.450) 03/08/20 12:34 POC ABG pCO2 63.1 mmHg (32.0-48.0) H 03/08/20 12:34 ABG pCO2 60.1 mm Hg 03/06/20 04:34 POC ABG pO2 90.5 mmHg (83-108) 03/08/20 12:34 ABG pO2 88.6 mm Hg (80.0-90.0) 03/06/20 04:34 POC ABG HCO3 35.7 03/08/20 12:34 ABG O2 Saturation 97.0 % (95.0-99.0) 03/06/20 04:34 PT/INR, D-dimer PT 15.6 Sec. (12.2-14.9) H 02/24/20 09:19 INR 1.21 (0.87-1.13) H 02/24/20 09:19 D-Dimer 1311.96 ng/mlDDU (0-234) H 02/24/20 09:19 Abnormal lab findings: Abnormal Labs 02/24/20 02/24/20 02/24/20 09:19 09:19 09:19 WBC 20.2 H RBC 5.05 H Hgb Hct MCV MCH RDW 15.3 H Plt Count Lymph % (Auto) Lymph # (Auto) [place] # (Auto) Seg Neutrophils % Seg Neuts % (Manual) 86.0 H Lymphocytes % (Manual) 1.0 L Monocytes % (Manual) Basophils % (Manual) Seg Neutrophils # Seg Neutrophils # Man 17.4 H Lymphocytes # (Manual) 0.2 L Monocytes # (Manual) Eosinophils # (Manual) Basophils # (Manual) PT 15.6 H INR 1.21 H D-Dimer 1311.96 H ABG pH POC ABG pCO2 POC ABG pO2 ABG pO2 ABG HCO3 ABG O2 Saturation ABG Base Excess ABG Hemoglobin ABG Oxyhemoglobin ABG Potassium ABG Glucose Oxyhemoglobin Carboxyhemoglobin Sodium 135 L Potassium 3.2 L Chloride 92.2 L Carbon Dioxide BUN 6 L Creatinine < 0.2 L Glucose 124 H POC Glucose Calcium Ferritin Total Bilirubin 2.30 H Alkaline Phosphatase 132 H Lactate Dehydrogenase Total Creatine Kinase CK-MB (CK-2) Rel Index Troponin T 0.080 H C-Reactive Protein Total Protein Albumin 3.6 L Prealbumin LDL Cholesterol Direct 41 L Arterial Blood Glucose Arterial Blood Ionized Calcium Urine WBC (Auto) 02/24/20 02/24/20 02/24/20 09:19 09:58 10:01 WBC RBC Hgb Hct MCV MCH RDW Plt Count Lymph % (Auto) Lymph # (Auto) [place] # (Auto) Seg Neutrophils % Seg Neuts % (Manual) Lymphocytes % (Manual) Monocytes % (Manual) Basophils % (Manual) Seg Neutrophils # Seg Neutrophils # Man Lymphocytes # (Manual) Monocytes # (Manual) Eosinophils # (Manual) Basophils # (Manual) PT INR D-Dimer ABG pH 7.176 L* POC ABG pCO2 POC ABG pO2 ABG pO2 91.2 H ABG HCO3 ABG O2 Saturation ABG Base Excess -4.6 L ABG Hemoglobin ABG Oxyhemoglobin ABG Potassium ABG Glucose Oxyhemoglobin 92.6 L Carboxyhemoglobin Sodium Potassium Chloride Carbon Dioxide BUN Creatinine Glucose POC Glucose Calcium Ferritin 1715.0 H Total Bilirubin Alkaline Phosphatase Lactate Dehydrogenase 303 H Total Creatine Kinase CK-MB (CK-2) Rel Index Troponin T C-Reactive Protein 26.10 H Total Protein Albumin Prealbumin LDL Cholesterol Direct Arterial Blood Glucose Arterial Blood Ionized Calcium Urine WBC (Auto) 02/24/20 02/24/20 02/24/20 11:52 13:45 19:35 WBC RBC Hgb Hct MCV MCH RDW Plt Count Lymph % (Auto) Lymph # (Auto) [place] # (Auto) Seg Neutrophils % Seg Neuts % (Manual) Lymphocytes % (Manual) Monocytes % (Manual) Basophils % (Manual) Seg Neutrophils # Seg Neutrophils # Man Lymphocytes # (Manual) Monocytes # (Manual) Eosinophils # (Manual) Basophils # (Manual) PT INR D-Dimer ABG pH 7.051 L* 7.300 L POC ABG pCO2 POC ABG pO2 ABG pO2 94.7 H 75.1 L ABG HCO3 18.0 L ABG O2 Saturation 93.5 L ABG Base Excess -6.8 L -7.8 L ABG Hemoglobin 13.2 L 11.9 L ABG Oxyhemoglobin ABG Potassium ABG Glucose Oxyhemoglobin 91.0 L 92.7 L Carboxyhemoglobin Sodium Potassium Chloride Carbon Dioxide BUN Creatinine Glucose POC Glucose Calcium Ferritin Total Bilirubin Alkaline Phosphatase Lactate Dehydrogenase Total Creatine Kinase CK-MB (CK-2) Rel Index Troponin T 0.034 H D C-Reactive Protein Total Protein Albumin Prealbumin LDL Cholesterol Direct Arterial Blood Glucose Arterial Blood Ionized Calcium Urine WBC (Auto) 02/25/20 02/25/20 02/25/20 04:00 04:00 12:26 WBC 22.9 H RBC Hgb Hct MCV 83 L MCH 27 L RDW Plt Count 468 H Lymph % (Auto) Lymph # (Auto) [place] # (Auto) Seg Neutrophils % Seg Neuts % (Manual) 89.0 H Lymphocytes % (Manual) 7.0 L Monocytes % (Manual) Basophils % (Manual) Seg Neutrophils # Seg Neutrophils # Man 20.4 H Lymphocytes # (Manual) Monocytes # (Manual) Eosinophils # (Manual) Basophils # (Manual) PT INR D-Dimer ABG pH POC ABG pCO2 POC ABG pO2 ABG pO2 ABG HCO3 ABG O2 Saturation ABG Base Excess ABG Hemoglobin ABG Oxyhemoglobin ABG Potassium 2.6 L ABG Glucose 142 H Oxyhemoglobin Carboxyhemoglobin Sodium Potassium 3.2 L Chloride Carbon Dioxide 18 L BUN Creatinine 0.2 L Glucose 114 H POC Glucose Calcium Ferritin Total Bilirubin Alkaline Phosphatase Lactate Dehydrogenase Total Creatine Kinase CK-MB (CK-2) Rel Index Troponin T C-Reactive Protein Total Protein Albumin 3.5 L Prealbumin LDL Cholesterol Direct Arterial Blood Glucose 142 H Arterial Blood Ionized Calcium Urine WBC (Auto) 02/26/20 02/26/20 02/26/20 15:58 17:00 23:43 WBC RBC Hgb Hct MCV MCH RDW Plt Count Lymph % (Auto) Lymph # (Auto) [place] # (Auto) Seg Neutrophils % Seg Neuts % (Manual) Lymphocytes % (Manual) Monocytes % (Manual) Basophils % (Manual) Seg Neutrophils # Seg Neutrophils # Man Lymphocytes # (Manual) Monocytes # (Manual) Eosinophils # (Manual) Basophils # (Manual) PT INR D-Dimer ABG pH 7.502 H POC ABG pCO2 POC ABG pO2 213.6 H ABG pO2 ABG HCO3 ABG O2 Saturation ABG Base Excess ABG Hemoglobin ABG Oxyhemoglobin 99.2 H ABG Potassium 2.9 L ABG Glucose 160 H Oxyhemoglobin Carboxyhemoglobin 0.4 L Sodium Potassium Chloride Carbon Dioxide BUN Creatinine Glucose POC Glucose 189 H 120 H Calcium Ferritin Total Bilirubin Alkaline Phosphatase Lactate Dehydrogenase Total Creatine Kinase CK-MB (CK-2) Rel Index Troponin T C-Reactive Protein Total Protein Albumin Prealbumin LDL Cholesterol Direct Arterial Blood Glucose 160 H Arterial Blood Ionized Calcium 4.5 L Urine WBC (Auto) 02/27/20 02/27/20 02/27/20 05:00 07:04 17:45 WBC RBC Hgb Hct MCV MCH RDW Plt Count Lymph % (Auto) Lymph # (Auto) [place] # (Auto) Seg Neutrophils % Seg Neuts % (Manual) Lymphocytes % (Manual) Monocytes % (Manual) Basophils % (Manual) Seg Neutrophils # Seg Neutrophils # Man Lymphocytes # (Manual) Monocytes # (Manual) Eosinophils # (Manual) Basophils # (Manual) PT INR D-Dimer ABG pH 7.524 H POC ABG pCO2 POC ABG pO2 ABG pO2 ABG HCO3 ABG O2 Saturation ABG Base Excess ABG Hemoglobin ABG Oxyhemoglobin ABG Potassium 3.0 L ABG Glucose 143 H Oxyhemoglobin Carboxyhemoglobin Sodium Potassium Chloride Carbon Dioxide BUN Creatinine Glucose POC Glucose 154 H 175 H Calcium Ferritin Total Bilirubin Alkaline Phosphatase Lactate Dehydrogenase Total Creatine Kinase CK-MB (CK-2) Rel Index Troponin T C-Reactive Protein Total Protein Albumin Prealbumin LDL Cholesterol Direct Arterial Blood Glucose 143 H Arterial Blood Ionized Calcium Urine WBC (Auto) 02/27/20 02/28/20 02/28/20 Unknown 00:21 04:15 WBC 18.7 H RBC Hgb Hct MCV MCH RDW Plt Count Lymph % (Auto) 8.7 L Lymph # (Auto) [place] # (Auto) 1.2 H Seg Neutrophils % 84.6 H Seg Neuts % (Manual) Lymphocytes % (Manual) Monocytes % (Manual) Basophils % (Manual) Seg Neutrophils # 15.9 H Seg Neutrophils # Man Lymphocytes # (Manual) Monocytes # (Manual) Eosinophils # (Manual) Basophils # (Manual) PT INR D-Dimer ABG pH POC ABG pCO2 POC ABG pO2 ABG pO2 ABG HCO3 ABG O2 Saturation ABG Base Excess ABG Hemoglobin ABG Oxyhemoglobin ABG Potassium ABG Glucose Oxyhemoglobin Carboxyhemoglobin Sodium Potassium 2.9 L* Chloride Carbon Dioxide 33 H D BUN Creatinine < 0.2 L Glucose 157 H POC Glucose 134 H Calcium Ferritin Total Bilirubin Alkaline Phosphatase Lactate Dehydrogenase Total Creatine Kinase CK-MB (CK-2) Rel Index Troponin T C-Reactive Protein Total Protein Albumin Prealbumin LDL Cholesterol Direct Arterial Blood Glucose Arterial Blood Ionized Calcium Urine WBC (Auto) 02/28/20 02/28/20 02/28/20 04:15 05:16 05:39 WBC RBC Hgb Hct MCV MCH RDW Plt Count Lymph % (Auto) Lymph # (Auto) [place] # (Auto) Seg Neutrophils % Seg Neuts % (Manual) Lymphocytes % (Manual) Monocytes % (Manual) Basophils % (Manual) Seg Neutrophils # Seg Neutrophils # Man Lymphocytes # (Manual) Monocytes # (Manual) Eosinophils # (Manual) Basophils # (Manual) PT INR D-Dimer ABG pH POC ABG pCO2 POC ABG pO2 ABG pO2 142.9 H ABG HCO3 34.1 H ABG O2 Saturation ABG Base Excess 8.3 H ABG Hemoglobin ABG Oxyhemoglobin ABG Potassium ABG Glucose Oxyhemoglobin Carboxyhemoglobin Sodium 151 H Potassium Chloride Carbon Dioxide 32 H BUN Creatinine 0.2 L Glucose 167 H POC Glucose 138 H Calcium Ferritin Total Bilirubin Alkaline Phosphatase Lactate Dehydrogenase Total Creatine Kinase CK-MB (CK-2) Rel Index Troponin T C-Reactive Protein Total Protein Albumin Prealbumin LDL Cholesterol Direct Arterial Blood Glucose Arterial Blood Ionized Calcium Urine WBC (Auto) 02/28/20 02/28/20 02/28/20 11:05 11:33 12:54 WBC RBC Hgb Hct MCV MCH RDW Plt Count Lymph % (Auto) Lymph # (Auto) [place] # (Auto) Seg Neutrophils % Seg Neuts % (Manual) Lymphocytes % (Manual) Monocytes % (Manual) Basophils % (Manual) Seg Neutrophils # Seg Neutrophils # Man Lymphocytes # (Manual) Monocytes # (Manual) Eosinophils # (Manual) Basophils # (Manual) PT INR D-Dimer ABG pH POC ABG pCO2 POC ABG pO2 ABG pO2 ABG HCO3 ABG O2 Saturation ABG Base Excess ABG Hemoglobin ABG Oxyhemoglobin ABG Potassium ABG Glucose Oxyhemoglobin Carboxyhemoglobin Sodium Potassium Chloride Carbon Dioxide BUN Creatinine Glucose POC Glucose 160 H Calcium Ferritin Total Bilirubin Alkaline Phosphatase Lactate Dehydrogenase Total Creatine Kinase CK-MB (CK-2) Rel Index Troponin T C-Reactive Protein 4.70 H Total Protein Albumin Prealbumin 0.090 L LDL Cholesterol Direct Arterial Blood Glucose Arterial Blood Ionized Calcium Urine WBC (Auto) 02/28/20 02/29/20 02/29/20 17:34 00:44 04:05 WBC 19.6 H RBC Hgb Hct MCV MCH 27 L RDW 15.4 H Plt Count Lymph % (Auto) Lymph # (Auto) [place] # (Auto) Seg Neutrophils % Seg Neuts % (Manual) 86.0 H Lymphocytes % (Manual) 7.0 L Monocytes % (Manual) Basophils % (Manual) Seg Neutrophils # Seg Neutrophils # Man 16.9 H Lymphocytes # (Manual) Monocytes # (Manual) 1.2 H Eosinophils # (Manual) Basophils # (Manual) PT INR D-Dimer ABG pH POC ABG pCO2 POC ABG pO2 ABG pO2 ABG HCO3 ABG O2 Saturation ABG Base Excess ABG Hemoglobin ABG Oxyhemoglobin ABG Potassium ABG Glucose Oxyhemoglobin Carboxyhemoglobin Sodium Potassium Chloride Carbon Dioxide BUN Creatinine Glucose POC Glucose 136 H 156 H Calcium Ferritin Total Bilirubin Alkaline Phosphatase Lactate Dehydrogenase Total Creatine Kinase CK-MB (CK-2) Rel Index Troponin T C-Reactive Protein Total Protein Albumin Prealbumin LDL Cholesterol Direct Arterial Blood Glucose Arterial Blood Ionized Calcium Urine WBC (Auto) 02/29/20 02/29/2020 04:05 05:14 05:33 WBC RBC Hgb Hct MCV MCH RDW Plt Count Lymph % (Auto) Lymph # (Auto) [place] # (Auto) Seg Neutrophils % Seg Neuts % (Manual) Lymphocytes % (Manual) Monocytes % (Manual) Basophils % (Manual) Seg Neutrophils # Seg Neutrophils # Man Lymphocytes # (Manual) Monocytes # (Manual) Eosinophils # (Manual) Basophils # (Manual) PT INR D-Dimer ABG pH POC ABG pCO2 54.3 H POC ABG pO2 124.8 H ABG pO2 ABG HCO3 ABG O2 Saturation ABG Base Excess ABG Hemoglobin ABG Oxyhemoglobin ABG Potassium ABG Glucose 185 H Oxyhemoglobin Carboxyhemoglobin Sodium 148 H Potassium Chloride Carbon Dioxide 33 H BUN Creatinine < 0.2 L Glucose 173 H POC Glucose 152 H Calcium Ferritin Total Bilirubin Alkaline Phosphatase Lactate Dehydrogenase Total Creatine Kinase CK-MB (CK-2) Rel Index Troponin T C-Reactive Protein Total Protein Albumin Prealbumin LDL Cholesterol Direct Arterial Blood Glucose 185 H Arterial Blood Ionized Calcium Urine WBC (Auto) 03/01/20 03/01/20 03/01/20 00:00 03:45 04:33 WBC 23.1 H RBC Hgb Hct MCV MCH 27 L RDW 15.3 H Plt Count Lymph % (Auto) Lymph # (Auto) [place] # (Auto) Seg Neutrophils % Seg Neuts % (Manual) 92.0 H Lymphocytes % (Manual) 6.0 L Monocytes % (Manual) Basophils % (Manual) Seg Neutrophils # Seg Neutrophils # Man 21.3 H Lymphocytes # (Manual) Monocytes # (Manual) Eosinophils # (Manual) 0.5 H Basophils # (Manual) PT INR D-Dimer ABG pH 7.492 H POC ABG pCO2 POC ABG pO2 ABG pO2 157.1 H ABG HCO3 32.3 H ABG O2 Saturation ABG Base Excess 8.1 H ABG Hemoglobin 13.2 L ABG Oxyhemoglobin ABG Potassium ABG Glucose Oxyhemoglobin Carboxyhemoglobin Sodium Potassium Chloride Carbon Dioxide BUN Creatinine Glucose POC Glucose 109 H Calcium Ferritin Total Bilirubin Alkaline Phosphatase Lactate Dehydrogenase Total Creatine Kinase CK-MB (CK-2) Rel Index Troponin T C-Reactive Protein Total Protein Albumin Prealbumin LDL Cholesterol Direct Arterial Blood Glucose Arterial Blood Ionized Calcium Urine WBC (Auto) 03/01/20 03/01/20 03/01/20 04:33 05:29 12:32 WBC RBC Hgb Hct MCV MCH RDW Plt Count Lymph % (Auto) Lymph # (Auto) [place] # (Auto) Seg Neutrophils % Seg Neuts % (Manual) Lymphocytes % (Manual) Monocytes % (Manual) Basophils % (Manual) Seg Neutrophils # Seg Neutrophils # Man Lymphocytes # (Manual) Monocytes # (Manual) Eosinophils # (Manual) Basophils # (Manual) PT INR D-Dimer ABG pH POC ABG pCO2 POC ABG pO2 ABG pO2 ABG HCO3 ABG O2 Saturation ABG Base Excess ABG Hemoglobin ABG Oxyhemoglobin ABG Potassium ABG Glucose Oxyhemoglobin Carboxyhemoglobin Sodium 146 H Potassium Chloride Carbon Dioxide 32 H BUN Creatinine < 0.2 L Glucose 120 H POC Glucose 120 H 128 H Calcium Ferritin Total Bilirubin Alkaline Phosphatase Lactate Dehydrogenase Total Creatine Kinase CK-MB (CK-2) Rel Index Troponin T C-Reactive Protein Total Protein Albumin Prealbumin LDL Cholesterol Direct Arterial Blood Glucose Arterial Blood Ionized Calcium Urine WBC (Auto) 03/01/20 03/01/20 03/02/20 17:38 23:46 06:13 WBC RBC Hgb Hct MCV MCH RDW Plt Count Lymph % (Auto) Lymph # (Auto) [place] # (Auto) Seg Neutrophils % Seg Neuts % (Manual) Lymphocytes % (Manual) Monocytes % (Manual) Basophils % (Manual) Seg Neutrophils # Seg Neutrophils # Man Lymphocytes # (Manual) Monocytes # (Manual) Eosinophils # (Manual) Basophils # (Manual) PT INR D-Dimer ABG pH POC ABG pCO2 POC ABG pO2 ABG pO2 ABG HCO3 ABG O2 Saturation ABG Base Excess ABG Hemoglobin ABG Oxyhemoglobin ABG Potassium ABG Glucose Oxyhemoglobin Carboxyhemoglobin Sodium Potassium Chloride Carbon Dioxide BUN Creatinine Glucose POC Glucose 114 H 121 H 120 H Calcium Ferritin Total Bilirubin Alkaline Phosphatase Lactate Dehydrogenase Total Creatine Kinase CK-MB (CK-2) Rel Index Troponin T C-Reactive Protein Total Protein Albumin Prealbumin LDL Cholesterol Direct Arterial Blood Glucose Arterial Blood Ionized Calcium Urine WBC (Auto) 03/02/20 03/02/20 03/03/20 09:47 09:47 10:21 WBC 23.6 H RBC Hgb Hct MCV MCH RDW 15.3 H Plt Count 494 H Lymph % (Auto) Lymph # (Auto) [place] # (Auto) Seg Neutrophils % Seg Neuts % (Manual) 85.0 H Lymphocytes % (Manual) 6.0 L Monocytes % (Manual) Basophils % (Manual) Seg Neutrophils # Seg Neutrophils # Man 20.1 H Lymphocytes # (Manual) Monocytes # (Manual) 1.7 H Eosinophils # (Manual) Basophils # (Manual) PT INR D-Dimer ABG pH POC ABG pCO2 POC ABG pO2 ABG pO2 ABG HCO3 ABG O2 Saturation ABG Base Excess ABG Hemoglobin ABG Oxyhemoglobin ABG Potassium 3.3 L ABG Glucose 158 H Oxyhemoglobin Carboxyhemoglobin Sodium Potassium Chloride Carbon Dioxide BUN Creatinine < 0.2 L Glucose 177 H POC Glucose Calcium Ferritin Total Bilirubin Alkaline Phosphatase Lactate Dehydrogenase Total Creatine Kinase CK-MB (CK-2) Rel Index Troponin T C-Reactive Protein Total Protein Albumin Prealbumin LDL Cholesterol Direct Arterial Blood Glucose 158 H Arterial Blood Ionized Calcium Urine WBC (Auto) 03/03/20 03/04/20 03/04/20 21:30 00:00 12:23 WBC RBC Hgb Hct MCV MCH RDW Plt Count Lymph % (Auto) Lymph # (Auto) [place] # (Auto) Seg Neutrophils % Seg Neuts % (Manual) Lymphocytes % (Manual) Monocytes % (Manual) Basophils % (Manual) Seg Neutrophils # Seg Neutrophils # Man Lymphocytes # (Manual) Monocytes # (Manual) Eosinophils # (Manual) Basophils # (Manual) PT INR D-Dimer ABG pH 7.328 L POC ABG pCO2 POC ABG pO2 ABG pO2 68.4 L ABG HCO3 35.0 H ABG O2 Saturation 93.9 L ABG Base Excess 6.8 H ABG Hemoglobin 12.7 L ABG Oxyhemoglobin ABG Potassium ABG Glucose Oxyhemoglobin 91.9 L Carboxyhemoglobin Sodium Potassium Chloride Carbon Dioxide BUN Creatinine Glucose POC Glucose 187 H 163 H Calcium Ferritin Total Bilirubin Alkaline Phosphatase Lactate Dehydrogenase Total Creatine Kinase CK-MB (CK-2) Rel Index Troponin T C-Reactive Protein Total Protein Albumin Prealbumin LDL Cholesterol Direct Arterial Blood Glucose Arterial Blood Ionized Calcium Urine WBC (Auto) 03/04/20 03/04/20 03/05/20 18:15 21:30 06:02 WBC RBC Hgb Hct MCV MCH RDW Plt Count Lymph % (Auto) Lymph # (Auto) [place] # (Auto) Seg Neutrophils % Seg Neuts % (Manual) Lymphocytes % (Manual) Monocytes % (Manual) Basophils % (Manual) Seg Neutrophils # Seg Neutrophils # Man Lymphocytes # (Manual) Monocytes # (Manual) Eosinophils # (Manual) Basophils # (Manual) PT INR D-Dimer ABG pH 7.297 L POC ABG pCO2 POC ABG pO2 ABG pO2 ABG HCO3 41.0 H ABG O2 Saturation ABG Base Excess 11.0 H ABG Hemoglobin 13.1 L ABG Oxyhemoglobin ABG Potassium ABG Glucose Oxyhemoglobin 94.5 L Carboxyhemoglobin Sodium Potassium Chloride Carbon Dioxide BUN Creatinine Glucose POC Glucose 192 H 127 H Calcium Ferritin Total Bilirubin Alkaline Phosphatase Lactate Dehydrogenase Total Creatine Kinase CK-MB (CK-2) Rel Index Troponin T C-Reactive Protein Total Protein Albumin Prealbumin LDL Cholesterol Direct Arterial Blood Glucose Arterial Blood Ionized Calcium Urine WBC (Auto) 03/05/20 03/05/20 03/06/20 12:09 16:42 00:24 WBC RBC Hgb Hct MCV MCH RDW Plt Count Lymph % (Auto) Lymph # (Auto) [place] # (Auto) Seg Neutrophils % Seg Neuts % (Manual) Lymphocytes % (Manual) Monocytes % (Manual) Basophils % (Manual) Seg Neutrophils # Seg Neutrophils # Man Lymphocytes # (Manual) Monocytes # (Manual) Eosinophils # (Manual) Basophils # (Manual) PT INR D-Dimer ABG pH POC ABG pCO2 POC ABG pO2 ABG pO2 ABG HCO3 ABG O2 Saturation ABG Base Excess ABG Hemoglobin ABG Oxyhemoglobin ABG Potassium ABG Glucose Oxyhemoglobin Carboxyhemoglobin Sodium Potassium Chloride Carbon Dioxide BUN Creatinine Glucose POC Glucose 147 H 114 H 134 H Calcium Ferritin Total Bilirubin Alkaline Phosphatase Lactate Dehydrogenase Total Creatine Kinase CK-MB (CK-2) Rel Index Troponin T C-Reactive Protein Total Protein Albumin Prealbumin LDL Cholesterol Direct Arterial Blood Glucose Arterial Blood Ionized Calcium Urine WBC (Auto) 03/06/20 03/06/20 03/06/20 04:34 05:53 06:08 WBC 25.4 H RBC Hgb 10.5 L Hct 32.7 L MCV MCH 27 L RDW 15.3 H Plt Count 634 H Lymph % (Auto) Lymph # (Auto) [place] # (Auto) Seg Neutrophils % Seg Neuts % (Manual) 88.0 H Lymphocytes % (Manual) 2.0 L Monocytes % (Manual) 8.0 H Basophils % (Manual) Seg Neutrophils # Seg Neutrophils # Man 22.4 H Lymphocytes # (Manual) 0.5 L Monocytes # (Manual) 2.0 H Eosinophils # (Manual) Basophils # (Manual) PT INR D-Dimer ABG pH POC ABG pCO2 POC ABG pO2 ABG pO2 ABG HCO3 37.9 H ABG O2 Saturation ABG Base Excess 11.4 H ABG Hemoglobin 10.6 L ABG Oxyhemoglobin ABG Potassium ABG Glucose Oxyhemoglobin 94.7 L Carboxyhemoglobin Sodium Potassium Chloride Carbon Dioxide BUN Creatinine Glucose POC Glucose 135 H Calcium Ferritin Total Bilirubin Alkaline Phosphatase Lactate Dehydrogenase Total Creatine Kinase CK-MB (CK-2) Rel Index Troponin T C-Reactive Protein Total Protein Albumin Prealbumin LDL Cholesterol Direct Arterial Blood Glucose Arterial Blood Ionized Calcium Urine WBC (Auto) 03/06/20 03/06/20 03/06/20 06:08 12:19 19:10 WBC RBC Hgb Hct MCV MCH RDW Plt Count Lymph % (Auto) Lymph # (Auto) [place] # (Auto) Seg Neutrophils % Seg Neuts % (Manual) Lymphocytes % (Manual) Monocytes % (Manual) Basophils % (Manual) Seg Neutrophils # Seg Neutrophils # Man Lymphocytes # (Manual) Monocytes # (Manual) Eosinophils # (Manual) Basophils # (Manual) PT INR D-Dimer ABG pH POC ABG pCO2 POC ABG pO2 ABG pO2 ABG HCO3 ABG O2 Saturation ABG Base Excess ABG Hemoglobin ABG Oxyhemoglobin ABG Potassium ABG Glucose Oxyhemoglobin Carboxyhemoglobin Sodium 150 H D Potassium Chloride Carbon Dioxide 39 H D BUN 23 H Creatinine < 0.2 L Glucose 144 H POC Glucose 169 H 152 H Calcium Ferritin Total Bilirubin Alkaline Phosphatase Lactate Dehydrogenase Total Creatine Kinase CK-MB (CK-2) Rel Index Troponin T C-Reactive Protein Total Protein Albumin 3.3 L Prealbumin LDL Cholesterol Direct Arterial Blood Glucose Arterial Blood Ionized Calcium Urine WBC (Auto) 03/06/20 03/07/20 03/07/20 23:58 04:25 04:25 WBC 22.1 H RBC Hgb 10.9 L Hct 32.9 L MCV MCH RDW 15.5 H Plt Count 739 H Lymph % (Auto) 7.8 L Lymph # (Auto) [place] # (Auto) 1.3 H Seg Neutrophils % 85.5 H Seg Neuts % (Manual) Lymphocytes % (Manual) Monocytes % (Manual) Basophils % (Manual) Seg Neutrophils # 18.9 H Seg Neutrophils # Man Lymphocytes # (Manual) Monocytes # (Manual) Eosinophils # (Manual) Basophils # (Manual) PT INR D-Dimer ABG pH POC ABG pCO2 POC ABG pO2 ABG pO2 ABG HCO3 ABG O2 Saturation ABG Base Excess ABG Hemoglobin ABG Oxyhemoglobin ABG Potassium ABG Glucose Oxyhemoglobin Carboxyhemoglobin Sodium 146 H Potassium Chloride Carbon Dioxide 37 H BUN Creatinine < 0.2 L Glucose 118 H POC Glucose 111 H Calcium Ferritin Total Bilirubin Alkaline Phosphatase Lactate Dehydrogenase Total Creatine Kinase CK-MB (CK-2) Rel Index Troponin T C-Reactive Protein Total Protein Albumin 3.7 L Prealbumin LDL Cholesterol Direct Arterial Blood Glucose Arterial Blood Ionized Calcium Urine WBC (Auto) 03/07/20 03/07/20 03/07/20 05:20 17:45 23:32 WBC RBC Hgb Hct MCV MCH RDW Plt Count Lymph % (Auto) Lymph # (Auto) [place] # (Auto) Seg Neutrophils % Seg Neuts % (Manual) Lymphocytes % (Manual) Monocytes % (Manual) Basophils % (Manual) Seg Neutrophils # Seg Neutrophils # Man Lymphocytes # (Manual) Monocytes # (Manual) Eosinophils # (Manual) Basophils # (Manual) PT INR D-Dimer ABG pH POC ABG pCO2 POC ABG pO2 ABG pO2 ABG HCO3 ABG O2 Saturation ABG Base Excess ABG Hemoglobin ABG Oxyhemoglobin ABG Potassium ABG Glucose Oxyhemoglobin Carboxyhemoglobin Sodium Potassium Chloride Carbon Dioxide BUN Creatinine Glucose POC Glucose 113 H 124 H 210 H Calcium Ferritin Total Bilirubin Alkaline Phosphatase Lactate Dehydrogenase Total Creatine Kinase CK-MB (CK-2) Rel Index Troponin T C-Reactive Protein Total Protein Albumin Prealbumin LDL Cholesterol Direct Arterial Blood Glucose Arterial Blood Ionized Calcium Urine WBC (Auto) 03/08/20 03/08/20 03/08/20 05:35 06:43 06:43 WBC 28.9 H RBC 3.53 L Hgb 9.7 L Hct 30.3 L MCV MCH RDW 15.6 H Plt Count 578 H Lymph % (Auto) Lymph # (Auto) [place] # (Auto) Seg Neutrophils % Seg Neuts % (Manual) 93.0 H Lymphocytes % (Manual) 4.0 L Monocytes % (Manual) Basophils % (Manual) Seg Neutrophils # Seg Neutrophils # Man 26.9 H Lymphocytes # (Manual) Monocytes # (Manual) Eosinophils # (Manual) Basophils # (Manual) PT INR D-Dimer ABG pH POC ABG pCO2 POC ABG pO2 ABG pO2 ABG HCO3 ABG O2 Saturation ABG Base Excess ABG Hemoglobin ABG Oxyhemoglobin ABG Potassium ABG Glucose Oxyhemoglobin Carboxyhemoglobin Sodium 146 H Potassium Chloride Carbon Dioxide 35 H BUN 34 H Creatinine 0.3 L D Glucose 125 H POC Glucose 147 H Calcium Ferritin Total Bilirubin Alkaline Phosphatase Lactate Dehydrogenase Total Creatine Kinase CK-MB (CK-2) Rel Index Troponin T C-Reactive Protein Total Protein 5.9 L Albumin 3.2 L Prealbumin LDL Cholesterol Direct Arterial Blood Glucose Arterial Blood Ionized Calcium Urine WBC (Auto) 03/08/20 03/08/20 03/08/20 08:57 11:14 12:34 WBC RBC Hgb Hct MCV MCH RDW Plt Count Lymph % (Auto) Lymph # (Auto) [place] # (Auto) Seg Neutrophils % Seg Neuts % (Manual) Lymphocytes % (Manual) Monocytes % (Manual) Basophils % (Manual) Seg Neutrophils # Seg Neutrophils # Man Lymphocytes # (Manual) Monocytes # (Manual) Eosinophils # (Manual) Basophils # (Manual) PT INR D-Dimer ABG pH POC ABG pCO2 63.1 H POC ABG pO2 ABG pO2 ABG HCO3 ABG O2 Saturation ABG Base Excess ABG Hemoglobin 10.9 L ABG Oxyhemoglobin ABG Potassium ABG Glucose 176 H Oxyhemoglobin Carboxyhemoglobin Sodium Potassium Chloride Carbon Dioxide BUN Creatinine Glucose POC Glucose 171 H Calcium Ferritin Total Bilirubin Alkaline Phosphatase Lactate Dehydrogenase Total Creatine Kinase CK-MB (CK-2) Rel Index Troponin T C-Reactive Protein Total Protein Albumin Prealbumin LDL Cholesterol Direct Arterial Blood Glucose 176 H Arterial Blood Ionized Calcium 4.5 L Urine WBC (Auto) 10.0 H 03/08/20 03/08/20 03/09/20 18:02 23:43 05:49 WBC RBC Hgb Hct MCV MCH RDW Plt Count Lymph % (Auto) Lymph # (Auto) [place] # (Auto) Seg Neutrophils % Seg Neuts % (Manual) Lymphocytes % (Manual) Monocytes % (Manual) Basophils % (Manual) Seg Neutrophils # Seg Neutrophils # Man Lymphocytes # (Manual) Monocytes # (Manual) Eosinophils # (Manual) Basophils # (Manual) PT INR D-Dimer ABG pH POC ABG pCO2 POC ABG pO2 ABG pO2 ABG HCO3 ABG O2 Saturation ABG Base Excess ABG Hemoglobin ABG Oxyhemoglobin ABG Potassium ABG Glucose Oxyhemoglobin Carboxyhemoglobin Sodium Potassium Chloride Carbon Dioxide BUN Creatinine Glucose POC Glucose 157 H 134 H 163 H Calcium Ferritin Total Bilirubin Alkaline Phosphatase Lactate Dehydrogenase Total Creatine Kinase CK-MB (CK-2) Rel Index Troponin T C-Reactive Protein Total Protein Albumin Prealbumin LDL Cholesterol Direct Arterial Blood Glucose Arterial Blood Ionized Calcium Urine WBC (Auto) 03/09/20 03/09/20 03/09/20 08:35 08:35 12:11 WBC 23.4 H RBC 3.36 L Hgb 9.3 L Hct 28.8 L MCV MCH RDW 15.9 H Plt Count 521 H Lymph % (Auto) Lymph # (Auto) [place] # (Auto) Seg Neutrophils % Seg Neuts % (Manual) 87.0 H Lymphocytes % (Manual) 4.0 L Monocytes % (Manual) 9.0 H Basophils % (Manual) Seg Neutrophils # Seg Neutrophils # Man 20.4 H Lymphocytes # (Manual) 0.9 L Monocytes # (Manual) 2.1 H Eosinophils # (Manual) Basophils # (Manual) PT INR D-Dimer ABG pH POC ABG pCO2 POC ABG pO2 ABG pO2 ABG HCO3 ABG O2 Saturation ABG Base Excess ABG Hemoglobin ABG Oxyhemoglobin ABG Potassium ABG Glucose Oxyhemoglobin Carboxyhemoglobin Sodium 147 H Potassium Chloride Carbon Dioxide 37 H BUN 63 H Creatinine Glucose 154 H POC Glucose 128 H Calcium Ferritin Total Bilirubin Alkaline Phosphatase Lactate Dehydrogenase Total Creatine Kinase CK-MB (CK-2) Rel Index Troponin T C-Reactive Protein Total Protein Albumin Prealbumin LDL Cholesterol Direct Arterial Blood Glucose Arterial Blood Ionized Calcium Urine WBC (Auto) 03/09/20 03/10/20 03/10/20 17:51 00:25 05:41 WBC RBC Hgb Hct MCV MCH RDW Plt Count Lymph % (Auto) Lymph # (Auto) [place] # (Auto) Seg Neutrophils % Seg Neuts % (Manual) Lymphocytes % (Manual) Monocytes % (Manual) Basophils % (Manual) Seg Neutrophils # Seg Neutrophils # Man Lymphocytes # (Manual) Monocytes # (Manual) Eosinophils # (Manual) Basophils # (Manual) PT INR D-Dimer ABG pH POC ABG pCO2 POC ABG pO2 ABG pO2 ABG HCO3 ABG O2 Saturation ABG Base Excess ABG Hemoglobin ABG Oxyhemoglobin ABG Potassium ABG Glucose Oxyhemoglobin Carboxyhemoglobin Sodium Potassium Chloride Carbon Dioxide BUN Creatinine Glucose POC Glucose 127 H 128 H 153 H Calcium Ferritin Total Bilirubin Alkaline Phosphatase Lactate Dehydrogenase Total Creatine Kinase CK-MB (CK-2) Rel Index Troponin T C-Reactive Protein Total Protein Albumin Prealbumin LDL Cholesterol Direct Arterial Blood Glucose Arterial Blood Ionized Calcium Urine WBC (Auto) 03/10/20 03/10/20 03/10/20 06:14 06:14 12:02 WBC 18.3 H RBC 3.45 L Hgb 9.5 L Hct 29.5 L MCV MCH RDW 16.1 H Plt Count 494 H Lymph % (Auto) Lymph # (Auto) [place] # (Auto) Seg Neutrophils % Seg Neuts % (Manual) 95.0 H Lymphocytes % (Manual) 1.0 L Monocytes % (Manual) Basophils % (Manual) Seg Neutrophils # Seg Neutrophils # Man 17.4 H Lymphocytes # (Manual) 0.2 L Monocytes # (Manual) Eosinophils # (Manual) Basophils # (Manual) PT INR D-Dimer ABG pH POC ABG pCO2 POC ABG pO2 ABG pO2 ABG HCO3 ABG O2 Saturation ABG Base Excess ABG Hemoglobin ABG Oxyhemoglobin ABG Potassium ABG Glucose Oxyhemoglobin Carboxyhemoglobin Sodium 149 H Potassium Chloride Carbon Dioxide 35 H BUN 34 H Creatinine 0.2 L D Glucose 177 H POC Glucose 151 H Calcium Ferritin Total Bilirubin Alkaline Phosphatase Lactate Dehydrogenase Total Creatine Kinase CK-MB (CK-2) Rel Index Troponin T C-Reactive Protein Total Protein Albumin Prealbumin LDL Cholesterol Direct Arterial Blood Glucose Arterial Blood Ionized Calcium Urine WBC (Auto) 03/10/20 03/10/20 03/11/20 17:41 23:53 05:02 WBC RBC Hgb Hct MCV MCH RDW Plt Count Lymph % (Auto) Lymph # (Auto) [place] # (Auto) Seg Neutrophils % Seg Neuts % (Manual) Lymphocytes % (Manual) Monocytes % (Manual) Basophils % (Manual) Seg Neutrophils # Seg Neutrophils # Man Lymphocytes # (Manual) Monocytes # (Manual) Eosinophils # (Manual) Basophils # (Manual) PT INR D-Dimer ABG pH POC ABG pCO2 POC ABG pO2 ABG pO2 ABG HCO3 ABG O2 Saturation ABG Base Excess ABG Hemoglobin ABG Oxyhemoglobin ABG Potassium ABG Glucose Oxyhemoglobin Carboxyhemoglobin Sodium Potassium Chloride Carbon Dioxide BUN Creatinine Glucose POC Glucose 168 H 142 H 146 H Calcium Ferritin Total Bilirubin Alkaline Phosphatase Lactate Dehydrogenase Total Creatine Kinase CK-MB (CK-2) Rel Index Troponin T C-Reactive Protein Total Protein Albumin Prealbumin LDL Cholesterol Direct Arterial Blood Glucose Arterial Blood Ionized Calcium Urine WBC (Auto) 03/11/20 03/11/20 03/11/20 11:30 14:01 14:01 WBC 19.7 H RBC 3.04 L Hgb 8.7 L Hct 25.8 L MCV MCH RDW 15.6 H Plt Count Lymph % (Auto) Lymph # (Auto) [place] # (Auto) Seg Neutrophils % Seg Neuts % (Manual) Lymphocytes % (Manual) Monocytes % (Manual) Basophils % (Manual) Seg Neutrophils # Seg Neutrophils # Man Lymphocytes # (Manual) Monocytes # (Manual) Eosinophils # (Manual) Basophils # (Manual) PT INR D-Dimer ABG pH POC ABG pCO2 POC ABG pO2 ABG pO2 ABG HCO3 ABG O2 Saturation ABG Base Excess ABG Hemoglobin ABG Oxyhemoglobin ABG Potassium ABG Glucose Oxyhemoglobin Carboxyhemoglobin Sodium 151 H Potassium Chloride Carbon Dioxide 37 H BUN Creatinine < 0.2 L Glucose 171 H POC Glucose 248 H Calcium Ferritin Total Bilirubin Alkaline Phosphatase Lactate Dehydrogenase Total Creatine Kinase CK-MB (CK-2) Rel Index Troponin T C-Reactive Protein Total Protein Albumin Prealbumin LDL Cholesterol Direct Arterial Blood Glucose Arterial Blood Ionized Calcium Urine WBC (Auto) 03/11/20 03/11/20 03/12/20 17:09 23:52 04:39 WBC 19.9 H RBC 3.16 L Hgb 8.9 L Hct 27.5 L MCV MCH RDW 15.7 H Plt Count Lymph % (Auto) 6.8 L Lymph # (Auto) [place] # (Auto) 1.2 H Seg Neutrophils % 86.0 H Seg Neuts % (Manual) Lymphocytes % (Manual) Monocytes % (Manual) Basophils % (Manual) Seg Neutrophils # 17.1 H Seg Neutrophils # Man Lymphocytes # (Manual) Monocytes # (Manual) Eosinophils # (Manual) Basophils # (Manual) PT INR D-Dimer ABG pH POC ABG pCO2 POC ABG pO2 ABG pO2 ABG HCO3 ABG O2 Saturation ABG Base Excess ABG Hemoglobin ABG Oxyhemoglobin ABG Potassium ABG Glucose Oxyhemoglobin Carboxyhemoglobin Sodium Potassium Chloride Carbon Dioxide BUN Creatinine Glucose POC Glucose 124 H 131 H Calcium Ferritin Total Bilirubin Alkaline Phosphatase Lactate Dehydrogenase Total Creatine Kinase CK-MB (CK-2) Rel Index Troponin T C-Reactive Protein Total Protein Albumin Prealbumin LDL Cholesterol Direct Arterial Blood Glucose Arterial Blood Ionized Calcium Urine WBC (Auto) 03/12/20 03/12/20 03/12/20 04:39 05:28 11:34 WBC RBC Hgb Hct MCV MCH RDW Plt Count Lymph % (Auto) Lymph # (Auto) [place] # (Auto) Seg Neutrophils % Seg Neuts % (Manual) Lymphocytes % (Manual) Monocytes % (Manual) Basophils % (Manual) Seg Neutrophils # Seg Neutrophils # Man Lymphocytes # (Manual) Monocytes # (Manual) Eosinophils # (Manual) Basophils # (Manual) PT INR D-Dimer ABG pH POC ABG pCO2 POC ABG pO2 ABG pO2 ABG HCO3 ABG O2 Saturation ABG Base Excess ABG Hemoglobin ABG Oxyhemoglobin ABG Potassium ABG Glucose Oxyhemoglobin Carboxyhemoglobin Sodium 147 H Potassium Chloride Carbon Dioxide 40 H BUN Creatinine < 0.2 L Glucose 175 H POC Glucose 167 H 144 H Calcium Ferritin Total Bilirubin Alkaline Phosphatase Lactate Dehydrogenase Total Creatine Kinase CK-MB (CK-2) Rel Index Troponin T C-Reactive Protein Total Protein Albumin Prealbumin LDL Cholesterol Direct Arterial Blood Glucose Arterial Blood Ionized Calcium Urine WBC (Auto) 03/12/20 03/12/20 03/13/20 17:32 23:57 05:57 WBC RBC Hgb Hct MCV MCH RDW Plt Count Lymph % (Auto) Lymph # (Auto) [place] # (Auto) Seg Neutrophils % Seg Neuts % (Manual) Lymphocytes % (Manual) Monocytes % (Manual) Basophils % (Manual) Seg Neutrophils # Seg Neutrophils # Man Lymphocytes # (Manual) Monocytes # (Manual) Eosinophils # (Manual) Basophils # (Manual) PT INR D-Dimer ABG pH POC ABG pCO2 POC ABG pO2 ABG pO2 ABG HCO3 ABG O2 Saturation ABG Base Excess ABG Hemoglobin ABG Oxyhemoglobin ABG Potassium ABG Glucose Oxyhemoglobin Carboxyhemoglobin Sodium Potassium Chloride Carbon Dioxide BUN Creatinine Glucose POC Glucose 141 H 137 H 161 H Calcium Ferritin Total Bilirubin Alkaline Phosphatase Lactate Dehydrogenase Total Creatine Kinase CK-MB (CK-2) Rel Index Troponin T C-Reactive Protein Total Protein Albumin Prealbumin LDL Cholesterol Direct Arterial Blood Glucose Arterial Blood Ionized Calcium Urine WBC (Auto) 03/13/20 03/13/20 03/13/20 12:28 14:14 18:39 WBC RBC Hgb Hct MCV MCH RDW Plt Count Lymph % (Auto) Lymph # (Auto) [place] # (Auto) Seg Neutrophils % Seg Neuts % (Manual) Lymphocytes % (Manual) Monocytes % (Manual) Basophils % (Manual) Seg Neutrophils # Seg Neutrophils # Man Lymphocytes # (Manual) Monocytes # (Manual) Eosinophils # (Manual) Basophils # (Manual) PT INR D-Dimer ABG pH POC ABG pCO2 POC ABG pO2 ABG pO2 ABG HCO3 ABG O2 Saturation ABG Base Excess ABG Hemoglobin ABG Oxyhemoglobin ABG Potassium ABG Glucose Oxyhemoglobin Carboxyhemoglobin Sodium Potassium Chloride Carbon Dioxide 39 H BUN Creatinine < 0.2 L Glucose 129 H POC Glucose 130 H 125 H Calcium Ferritin Total Bilirubin Alkaline Phosphatase Lactate Dehydrogenase Total Creatine Kinase CK-MB (CK-2) Rel Index Troponin T C-Reactive Protein Total Protein Albumin Prealbumin LDL Cholesterol Direct Arterial Blood Glucose Arterial Blood Ionized Calcium Urine WBC (Auto) 03/13/20 03/14/20 03/14/20 23:33 05:24 08:07 WBC 16.8 H RBC 2.81 L Hgb 7.9 L Hct 23.9 L MCV MCH RDW 15.9 H Plt Count Lymph % (Auto) Lymph # (Auto) [place] # (Auto) Seg Neutrophils % Seg Neuts % (Manual) 84.0 H Lymphocytes % (Manual) 10.0 L Monocytes % (Manual) Basophils % (Manual) Seg Neutrophils # Seg Neutrophils # Man 14.1 H Lymphocytes # (Manual) Monocytes # (Manual) Eosinophils # (Manual) Basophils # (Manual) PT INR D-Dimer ABG pH POC ABG pCO2 POC ABG pO2 ABG pO2 ABG HCO3 ABG O2 Saturation ABG Base Excess ABG Hemoglobin ABG Oxyhemoglobin ABG Potassium ABG Glucose Oxyhemoglobin Carboxyhemoglobin Sodium Potassium Chloride Carbon Dioxide BUN Creatinine Glucose POC Glucose 146 H 125 H Calcium Ferritin Total Bilirubin Alkaline Phosphatase Lactate Dehydrogenase Total Creatine Kinase CK-MB (CK-2) Rel Index Troponin T C-Reactive Protein Total Protein Albumin Prealbumin LDL Cholesterol Direct Arterial Blood Glucose Arterial Blood Ionized Calcium Urine WBC (Auto) 03/14/20 03/14/20 03/14/20 08:07 12:21 18:26 WBC RBC Hgb Hct MCV MCH RDW Plt Count Lymph % (Auto) Lymph # (Auto) [place] # (Auto) Seg Neutrophils % Seg Neuts % (Manual) Lymphocytes % (Manual) Monocytes % (Manual) Basophils % (Manual) Seg Neutrophils # Seg Neutrophils # Man Lymphocytes # (Manual) Monocytes # (Manual) Eosinophils # (Manual) Basophils # (Manual) PT INR D-Dimer ABG pH POC ABG pCO2 POC ABG pO2 ABG pO2 ABG HCO3 ABG O2 Saturation ABG Base Excess ABG Hemoglobin ABG Oxyhemoglobin ABG Potassium ABG Glucose Oxyhemoglobin Carboxyhemoglobin Sodium Potassium Chloride 97.0 L Carbon Dioxide 37 H BUN Creatinine < 0.2 L Glucose 129 H POC Glucose 109 H 142 H Calcium 8.3 L Ferritin Total Bilirubin Alkaline Phosphatase Lactate Dehydrogenase Total Creatine Kinase CK-MB (CK-2) Rel Index Troponin T C-Reactive Protein Total Protein Albumin Prealbumin LDL Cholesterol Direct Arterial Blood Glucose Arterial Blood Ionized Calcium Urine WBC (Auto) 03/14/20 03/15/20 03/15/20 23:57 05:46 08:06 WBC 19.7 H RBC 3.29 L Hgb 9.1 L Hct 28.0 L MCV MCH RDW 15.9 H Plt Count Lymph % (Auto) Lymph # (Auto) [place] # (Auto) Seg Neutrophils % Seg Neuts % (Manual) Lymphocytes % (Manual) Monocytes % (Manual) Basophils % (Manual) Seg Neutrophils # Seg Neutrophils # Man Lymphocytes # (Manual) Monocytes # (Manual) Eosinophils # (Manual) Basophils # (Manual) PT INR D-Dimer ABG pH POC ABG pCO2 POC ABG pO2 ABG pO2 ABG HCO3 ABG O2 Saturation ABG Base Excess ABG Hemoglobin ABG Oxyhemoglobin ABG Potassium ABG Glucose Oxyhemoglobin Carboxyhemoglobin Sodium Potassium Chloride Carbon Dioxide BUN Creatinine Glucose POC Glucose 157 H 118 H Calcium Ferritin Total Bilirubin Alkaline Phosphatase Lactate Dehydrogenase Total Creatine Kinase CK-MB (CK-2) Rel Index Troponin T C-Reactive Protein Total Protein Albumin Prealbumin LDL Cholesterol Direct Arterial Blood Glucose Arterial Blood Ionized Calcium Urine WBC (Auto) 03/15/20 03/15/20 03/15/20 08:06 12:44 18:09 WBC RBC Hgb Hct MCV MCH RDW Plt Count Lymph % (Auto) Lymph # (Auto) [place] # (Auto) Seg Neutrophils % Seg Neuts % (Manual) Lymphocytes % (Manual) Monocytes % (Manual) Basophils % (Manual) Seg Neutrophils # Seg Neutrophils # Man Lymphocytes # (Manual) Monocytes # (Manual) Eosinophils # (Manual) Basophils # (Manual) PT INR D-Dimer ABG pH POC ABG pCO2 POC ABG pO2 ABG pO2 ABG HCO3 ABG O2 Saturation ABG Base Excess ABG Hemoglobin ABG Oxyhemoglobin ABG Potassium ABG Glucose Oxyhemoglobin Carboxyhemoglobin Sodium 136 L Potassium Chloride 93.6 L Carbon Dioxide 37 H BUN Creatinine < 0.2 L Glucose 132 H POC Glucose 151 H 164 H Calcium Ferritin Total Bilirubin Alkaline Phosphatase Lactate Dehydrogenase Total Creatine Kinase CK-MB (CK-2) Rel Index Troponin T C-Reactive Protein Total Protein Albumin Prealbumin LDL Cholesterol Direct Arterial Blood Glucose Arterial Blood Ionized Calcium Urine WBC (Auto) 03/15/20 03/16/20 03/16/20 23:26 05:39 11:58 WBC RBC Hgb Hct MCV MCH RDW Plt Count Lymph % (Auto) Lymph # (Auto) [place] # (Auto) Seg Neutrophils % Seg Neuts % (Manual) Lymphocytes % (Manual) Monocytes % (Manual) Basophils % (Manual) Seg Neutrophils # Seg Neutrophils # Man Lymphocytes # (Manual) Monocytes # (Manual) Eosinophils # (Manual) Basophils # (Manual) PT INR D-Dimer ABG pH POC ABG pCO2 POC ABG pO2 ABG pO2 ABG HCO3 ABG O2 Saturation ABG Base Excess ABG Hemoglobin ABG Oxyhemoglobin ABG Potassium ABG Glucose Oxyhemoglobin Carboxyhemoglobin Sodium Potassium Chloride Carbon Dioxide BUN Creatinine Glucose POC Glucose 136 H 116 H 109 H Calcium Ferritin Total Bilirubin Alkaline Phosphatase Lactate Dehydrogenase Total Creatine Kinase CK-MB (CK-2) Rel Index Troponin T C-Reactive Protein Total Protein Albumin Prealbumin LDL Cholesterol Direct Arterial Blood Glucose Arterial Blood Ionized Calcium Urine WBC (Auto) 03/16/20 03/17/20 03/17/20 23:56 04:40 04:40 WBC 18.0 H RBC 3.33 L Hgb 9.5 L Hct 28.8 L MCV MCH RDW 16.4 H Plt Count 499 H Lymph % (Auto) Lymph # (Auto) [place] # (Auto) Seg Neutrophils % Seg Neuts % (Manual) 82.0 H Lymphocytes % (Manual) 8.0 L Monocytes % (Manual) Basophils % (Manual) Seg Neutrophils # Seg Neutrophils # Man 14.8 H Lymphocytes # (Manual) Monocytes # (Manual) 1.3 H Eosinophils # (Manual) Basophils # (Manual) 0.2 H PT INR D-Dimer ABG pH POC ABG pCO2 POC ABG pO2 ABG pO2 ABG HCO3 ABG O2 Saturation ABG Base Excess ABG Hemoglobin ABG Oxyhemoglobin ABG Potassium ABG Glucose Oxyhemoglobin Carboxyhemoglobin Sodium Potassium Chloride 97.7 L Carbon Dioxide 32 H BUN Creatinine < 0.2 L Glucose 114 H POC Glucose 131 H Calcium Ferritin Total Bilirubin Alkaline Phosphatase Lactate Dehydrogenase Total Creatine Kinase CK-MB (CK-2) Rel Index Troponin T C-Reactive Protein Total Protein Albumin Prealbumin LDL Cholesterol Direct Arterial Blood Glucose Arterial Blood Ionized Calcium Urine WBC (Auto) 03/18/20 03/18/20 03/18/20 00:21 05:21 11:55 WBC RBC Hgb Hct MCV MCH RDW Plt Count Lymph % (Auto) Lymph # (Auto) [place] # (Auto) Seg Neutrophils % Seg Neuts % (Manual) Lymphocytes % (Manual) Monocytes % (Manual) Basophils % (Manual) Seg Neutrophils # Seg Neutrophils # Man Lymphocytes # (Manual) Monocytes # (Manual) Eosinophils # (Manual) Basophils # (Manual) PT INR D-Dimer ABG pH POC ABG pCO2 POC ABG pO2 ABG pO2 ABG HCO3 ABG O2 Saturation ABG Base Excess ABG Hemoglobin ABG Oxyhemoglobin ABG Potassium ABG Glucose Oxyhemoglobin Carboxyhemoglobin Sodium Potassium Chloride Carbon Dioxide BUN Creatinine Glucose POC Glucose 124 H 138 H 119 H Calcium Ferritin Total Bilirubin Alkaline Phosphatase Lactate Dehydrogenase Total Creatine Kinase CK-MB (CK-2) Rel Index Troponin T C-Reactive Protein Total Protein Albumin Prealbumin LDL Cholesterol Direct Arterial Blood Glucose Arterial Blood Ionized Calcium Urine WBC (Auto) 03/18/20 03/18/20 03/19/20 17:03 23:58 05:24 WBC RBC Hgb Hct MCV MCH RDW Plt Count Lymph % (Auto) Lymph # (Auto) [place] # (Auto) Seg Neutrophils % Seg Neuts % (Manual) Lymphocytes % (Manual) Monocytes % (Manual) Basophils % (Manual) Seg Neutrophils # Seg Neutrophils # Man Lymphocytes # (Manual) Monocytes # (Manual) Eosinophils # (Manual) Basophils # (Manual) PT INR D-Dimer ABG pH POC ABG pCO2 POC ABG pO2 ABG pO2 ABG HCO3 ABG O2 Saturation ABG Base Excess ABG Hemoglobin ABG Oxyhemoglobin ABG Potassium ABG Glucose Oxyhemoglobin Carboxyhemoglobin Sodium Potassium Chloride Carbon Dioxide BUN Creatinine Glucose POC Glucose 128 H 128 H 115 H Calcium Ferritin Total Bilirubin Alkaline Phosphatase Lactate Dehydrogenase Total Creatine Kinase CK-MB (CK-2) Rel Index Troponin T C-Reactive Protein Total Protein Albumin Prealbumin LDL Cholesterol Direct Arterial Blood Glucose Arterial Blood Ionized Calcium Urine WBC (Auto) 03/19/20 03/19/20 03/19/20 08:05 08:05 11:56 WBC 16.8 H RBC 3.36 L Hgb 9.4 L Hct 28.8 L MCV MCH RDW 17.4 H Plt Count 567 H Lymph % (Auto) 7.8 L Lymph # (Auto) [place] # (Auto) 1.2 H Seg Neutrophils % 83.5 H Seg Neuts % (Manual) Lymphocytes % (Manual) Monocytes % (Manual) Basophils % (Manual) Seg Neutrophils # 14.1 H Seg Neutrophils # Man Lymphocytes # (Manual) Monocytes # (Manual) Eosinophils # (Manual) Basophils # (Manual) PT INR D-Dimer ABG pH POC ABG pCO2 POC ABG pO2 ABG pO2 ABG HCO3 ABG O2 Saturation ABG Base Excess ABG Hemoglobin ABG Oxyhemoglobin ABG Potassium ABG Glucose Oxyhemoglobin Carboxyhemoglobin Sodium Potassium Chloride Carbon Dioxide 36 H BUN Creatinine < 0.2 L Glucose 135 H POC Glucose 128 H Calcium Ferritin Total Bilirubin Alkaline Phosphatase Lactate Dehydrogenase Total Creatine Kinase CK-MB (CK-2) Rel Index Troponin T C-Reactive Protein Total Protein Albumin Prealbumin LDL Cholesterol Direct Arterial Blood Glucose Arterial Blood Ionized Calcium Urine WBC (Auto) 03/19/20 03/20/20 03/20/20 23:59 05:12 16:52 WBC RBC Hgb Hct MCV MCH RDW Plt Count Lymph % (Auto) Lymph # (Auto) [place] # (Auto) Seg Neutrophils % Seg Neuts % (Manual) Lymphocytes % (Manual) Monocytes % (Manual) Basophils % (Manual) Seg Neutrophils # Seg Neutrophils # Man Lymphocytes # (Manual) Monocytes # (Manual) Eosinophils # (Manual) Basophils # (Manual) PT INR D-Dimer ABG pH POC ABG pCO2 POC ABG pO2 ABG pO2 ABG HCO3 ABG O2 Saturation ABG Base Excess ABG Hemoglobin ABG Oxyhemoglobin ABG Potassium ABG Glucose Oxyhemoglobin Carboxyhemoglobin Sodium Potassium Chloride Carbon Dioxide BUN Creatinine Glucose POC Glucose 120 H 131 H 124 H Calcium Ferritin Total Bilirubin Alkaline Phosphatase Lactate Dehydrogenase Total Creatine Kinase CK-MB (CK-2) Rel Index Troponin T C-Reactive Protein Total Protein Albumin Prealbumin LDL Cholesterol Direct Arterial Blood Glucose Arterial Blood Ionized Calcium Urine WBC (Auto) 03/20/20 03/21/20 03/21/20 23:35 04:50 07:35 WBC 15.2 H RBC 3.39 L Hgb 9.4 L Hct 29.4 L MCV MCH RDW 17.6 H Plt Count 518 H Lymph % (Auto) Lymph # (Auto) [place] # (Auto) Seg Neutrophils % Seg Neuts % (Manual) 83.0 H Lymphocytes % (Manual) 10.0 L Monocytes % (Manual) Basophils % (Manual) 2.0 H Seg Neutrophils # Seg Neutrophils # Man 12.6 H Lymphocytes # (Manual) Monocytes # (Manual) Eosinophils # (Manual) Basophils # (Manual) 0.3 H PT INR D-Dimer ABG pH POC ABG pCO2 POC ABG pO2 ABG pO2 ABG HCO3 ABG O2 Saturation ABG Base Excess ABG Hemoglobin ABG Oxyhemoglobin ABG Potassium ABG Glucose Oxyhemoglobin Carboxyhemoglobin Sodium Potassium Chloride Carbon Dioxide BUN Creatinine Glucose POC Glucose 125 H 127 H Calcium Ferritin Total Bilirubin Alkaline Phosphatase Lactate Dehydrogenase Total Creatine Kinase CK-MB (CK-2) Rel Index Troponin T C-Reactive Protein Total Protein Albumin Prealbumin LDL Cholesterol Direct Arterial Blood Glucose Arterial Blood Ionized Calcium Urine WBC (Auto) 03/21/20 03/21/20 03/21/20 07:35 11:45 17:22 WBC RBC Hgb Hct MCV MCH RDW Plt Count Lymph % (Auto) Lymph # (Auto) [place] # (Auto) Seg Neutrophils % Seg Neuts % (Manual) Lymphocytes % (Manual) Monocytes % (Manual) Basophils % (Manual) Seg Neutrophils # Seg Neutrophils # Man Lymphocytes # (Manual) Monocytes # (Manual) Eosinophils # (Manual) Basophils # (Manual) PT INR D-Dimer ABG pH POC ABG pCO2 POC ABG pO2 ABG pO2 ABG HCO3 ABG O2 Saturation ABG Base Excess ABG Hemoglobin ABG Oxyhemoglobin ABG Potassium ABG Glucose Oxyhemoglobin Carboxyhemoglobin Sodium 136 L Potassium Chloride 97.7 L Carbon Dioxide 32 H BUN Creatinine < 0.2 L Glucose 103 H POC Glucose 126 H 120 H Calcium Ferritin Total Bilirubin Alkaline Phosphatase Lactate Dehydrogenase Total Creatine Kinase CK-MB (CK-2) Rel Index Troponin T C-Reactive Protein Total Protein Albumin Prealbumin LDL Cholesterol Direct Arterial Blood Glucose Arterial Blood Ionized Calcium Urine WBC (Auto) 03/22/20 03/22/20 03/22/20 05:09 06:34 06:34 WBC 17.5 H RBC 3.52 L Hgb 10.0 L Hct 30.7 L MCV MCH RDW 17.5 H Plt Count 499 H Lymph % (Auto) Lymph # (Auto) [place] # (Auto) Seg Neutrophils % Seg Neuts % (Manual) 80.0 H Lymphocytes % (Manual) 10.0 L Monocytes % (Manual) Basophils % (Manual) Seg Neutrophils # Seg Neutrophils # Man 14.0 H Lymphocytes # (Manual) Monocytes # (Manual) Eosinophils # (Manual) Basophils # (Manual) PT INR D-Dimer ABG pH POC ABG pCO2 POC ABG pO2 ABG pO2 ABG HCO3 ABG O2 Saturation ABG Base Excess ABG Hemoglobin ABG Oxyhemoglobin ABG Potassium ABG Glucose Oxyhemoglobin Carboxyhemoglobin Sodium Potassium Chloride 96.6 L Carbon Dioxide 38 H BUN Creatinine < 0.2 L Glucose 139 H POC Glucose 125 H Calcium Ferritin Total Bilirubin Alkaline Phosphatase Lactate Dehydrogenase Total Creatine Kinase CK-MB (CK-2) Rel Index Troponin T C-Reactive Protein Total Protein Albumin Prealbumin LDL Cholesterol Direct Arterial Blood Glucose Arterial Blood Ionized Calcium Urine WBC (Auto) 03/22/20 03/22/20 03/22/20 11:45 18:00 23:32 WBC RBC Hgb Hct MCV MCH RDW Plt Count Lymph % (Auto) Lymph # (Auto) [place] # (Auto) Seg Neutrophils % Seg Neuts % (Manual) Lymphocytes % (Manual) Monocytes % (Manual) Basophils % (Manual) Seg Neutrophils # Seg Neutrophils # Man Lymphocytes # (Manual) Monocytes # (Manual) Eosinophils # (Manual) Basophils # (Manual) PT INR D-Dimer ABG pH POC ABG pCO2 POC ABG pO2 ABG pO2 ABG HCO3 ABG O2 Saturation ABG Base Excess ABG Hemoglobin ABG Oxyhemoglobin ABG Potassium ABG Glucose Oxyhemoglobin Carboxyhemoglobin Sodium Potassium Chloride Carbon Dioxide BUN Creatinine Glucose POC Glucose 135 H 133 H Calcium Ferritin Total Bilirubin Alkaline Phosphatase Lactate Dehydrogenase Total Creatine Kinase CK-MB (CK-2) Rel Index Troponin T 0.113 H* C-Reactive Protein Total Protein Albumin Prealbumin LDL Cholesterol Direct Arterial Blood Glucose Arterial Blood Ionized Calcium Urine WBC (Auto) 03/23/20 03/23/20 03/23/20 01:47 06:21 07:57 WBC RBC Hgb Hct MCV MCH RDW Plt Count Lymph % (Auto) Lymph # (Auto) [place] # (Auto) Seg Neutrophils % Seg Neuts % (Manual) Lymphocytes % (Manual) Monocytes % (Manual) Basophils % (Manual) Seg Neutrophils # Seg Neutrophils # Man Lymphocytes # (Manual) Monocytes # (Manual) Eosinophils # (Manual) Basophils # (Manual) PT INR D-Dimer ABG pH POC ABG pCO2 POC ABG pO2 ABG pO2 ABG HCO3 ABG O2 Saturation ABG Base Excess ABG Hemoglobin ABG Oxyhemoglobin ABG Potassium ABG Glucose Oxyhemoglobin Carboxyhemoglobin Sodium Potassium Chloride Carbon Dioxide BUN Creatinine Glucose POC Glucose 130 H Calcium Ferritin Total Bilirubin Alkaline Phosphatase Lactate Dehydrogenase Total Creatine Kinase CK-MB (CK-2) Rel Index Troponin T 0.143 H* D 0.105 H* D C-Reactive Protein Total Protein Albumin Prealbumin LDL Cholesterol Direct Arterial Blood Glucose Arterial Blood Ionized Calcium Urine WBC (Auto) 03/23/20 03/24/20 03/24/20 12:02 05:33 07:15 WBC 18.0 H RBC Hgb 11.0 L Hct 34.0 L MCV MCH RDW 17.4 H Plt Count 520 H Lymph % (Auto) Lymph # (Auto) [place] # (Auto) Seg Neutrophils % Seg Neuts % (Manual) 88.0 H Lymphocytes % (Manual) 7.0 L Monocytes % (Manual) Basophils % (Manual) Seg Neutrophils # Seg Neutrophils # Man 15.8 H Lymphocytes # (Manual) Monocytes # (Manual) Eosinophils # (Manual) Basophils # (Manual) PT INR D-Dimer ABG pH POC ABG pCO2 POC ABG pO2 ABG pO2 ABG HCO3 ABG O2 Saturation ABG Base Excess ABG Hemoglobin ABG Oxyhemoglobin ABG Potassium ABG Glucose Oxyhemoglobin Carboxyhemoglobin Sodium Potassium Chloride Carbon Dioxide BUN Creatinine Glucose POC Glucose 137 H 112 H Calcium Ferritin Total Bilirubin Alkaline Phosphatase Lactate Dehydrogenase Total Creatine Kinase CK-MB (CK-2) Rel Index Troponin T C-Reactive Protein Total Protein Albumin Prealbumin LDL Cholesterol Direct Arterial Blood Glucose Arterial Blood Ionized Calcium Urine WBC (Auto) 03/24/20 03/24/20 03/24/20 07:15 11:22 23:30 WBC RBC Hgb Hct MCV MCH RDW Plt Count Lymph % (Auto) Lymph # (Auto) [place] # (Auto) Seg Neutrophils % Seg Neuts % (Manual) Lymphocytes % (Manual) Monocytes % (Manual) Basophils % (Manual) Seg Neutrophils # Seg Neutrophils # Man Lymphocytes # (Manual) Monocytes # (Manual) Eosinophils # (Manual) Basophils # (Manual) PT INR D-Dimer ABG pH POC ABG pCO2 POC ABG pO2 ABG pO2 ABG HCO3 ABG O2 Saturation ABG Base Excess ABG Hemoglobin ABG Oxyhemoglobin ABG Potassium ABG Glucose Oxyhemoglobin Carboxyhemoglobin Sodium Potassium Chloride 96.6 L Carbon Dioxide 38 H BUN Creatinine < 0.2 L Glucose 141 H POC Glucose 130 H 120 H Calcium Ferritin Total Bilirubin Alkaline Phosphatase Lactate Dehydrogenase Total Creatine Kinase CK-MB (CK-2) Rel Index Troponin T C-Reactive Protein Total Protein Albumin Prealbumin LDL Cholesterol Direct Arterial Blood Glucose Arterial Blood Ionized Calcium Urine WBC (Auto) 03/25/20 03/25/20 03/25/20 05:48 17:53 23:18 WBC RBC Hgb Hct MCV MCH RDW Plt Count Lymph % (Auto) Lymph # (Auto) [place] # (Auto) Seg Neutrophils % Seg Neuts % (Manual) Lymphocytes % (Manual) Monocytes % (Manual) Basophils % (Manual) Seg Neutrophils # Seg Neutrophils # Man Lymphocytes # (Manual) Monocytes # (Manual) Eosinophils # (Manual) Basophils # (Manual) PT INR D-Dimer ABG pH POC ABG pCO2 POC ABG pO2 ABG pO2 ABG HCO3 ABG O2 Saturation ABG Base Excess ABG Hemoglobin ABG Oxyhemoglobin ABG Potassium ABG Glucose Oxyhemoglobin Carboxyhemoglobin Sodium Potassium Chloride Carbon Dioxide BUN Creatinine Glucose POC Glucose 124 H 109 H 131 H Calcium Ferritin Total Bilirubin Alkaline Phosphatase Lactate Dehydrogenase Total Creatine Kinase CK-MB (CK-2) Rel Index Troponin T C-Reactive Protein Total Protein Albumin Prealbumin LDL Cholesterol Direct Arterial Blood Glucose Arterial Blood Ionized Calcium Urine WBC (Auto) 03/26/20 03/26/20 03/26/20 05:21 08:49 08:49 WBC 19.7 H RBC Hgb 10.7 L Hct 33.5 L MCV MCH 27 L RDW 17.1 H Plt Count 480 H Lymph % (Auto) 5.7 L Lymph # (Auto) 1.1 L [place] # (Auto) 1.2 H Seg Neutrophils % 87.7 H Seg Neuts % (Manual) Lymphocytes % (Manual) Monocytes % (Manual) Basophils % (Manual) Seg Neutrophils # 17.2 H Seg Neutrophils # Man Lymphocytes # (Manual) Monocytes # (Manual) Eosinophils # (Manual) Basophils # (Manual) PT INR D-Dimer ABG pH POC ABG pCO2 POC ABG pO2 ABG pO2 ABG HCO3 ABG O2 Saturation ABG Base Excess ABG Hemoglobin ABG Oxyhemoglobin ABG Potassium ABG Glucose Oxyhemoglobin Carboxyhemoglobin Sodium Potassium Chloride 97.2 L Carbon Dioxide 36 H BUN Creatinine < 0.2 L Glucose 127 H POC Glucose 116 H Calcium Ferritin Total Bilirubin Alkaline Phosphatase Lactate Dehydrogenase Total Creatine Kinase CK-MB (CK-2) Rel Index Troponin T C-Reactive Protein Total Protein Albumin Prealbumin LDL Cholesterol Direct Arterial Blood Glucose Arterial Blood Ionized Calcium Urine WBC (Auto) 03/26/20 03/26/20 03/26/20 11:38 18:44 23:06 WBC RBC Hgb Hct MCV MCH RDW Plt Count Lymph % (Auto) Lymph # (Auto) [place] # (Auto) Seg Neutrophils % Seg Neuts % (Manual) Lymphocytes % (Manual) Monocytes % (Manual) Basophils % (Manual) Seg Neutrophils # Seg Neutrophils # Man Lymphocytes # (Manual) Monocytes # (Manual) Eosinophils # (Manual) Basophils # (Manual) PT INR D-Dimer ABG pH POC ABG pCO2 POC ABG pO2 ABG pO2 ABG HCO3 ABG O2 Saturation ABG Base Excess ABG Hemoglobin ABG Oxyhemoglobin ABG Potassium ABG Glucose Oxyhemoglobin Carboxyhemoglobin Sodium Potassium Chloride Carbon Dioxide BUN Creatinine Glucose POC Glucose 120 H 111 H 134 H Calcium Ferritin Total Bilirubin Alkaline Phosphatase Lactate Dehydrogenase Total Creatine Kinase CK-MB (CK-2) Rel Index Troponin T C-Reactive Protein Total Protein Albumin Prealbumin LDL Cholesterol Direct Arterial Blood Glucose Arterial Blood Ionized Calcium Urine WBC (Auto) 03/27/20 03/27/20 03/27/20 05:41 05:59 05:59 WBC 18.6 H RBC Hgb 10.1 L Hct 31.4 L MCV MCH RDW 17.2 H Plt Count Lymph % (Auto) 8.0 L Lymph # (Auto) [place] # (Auto) 1.2 H Seg Neutrophils % 84.7 H Seg Neuts % (Manual) Lymphocytes % (Manual) Monocytes % (Manual) Basophils % (Manual) Seg Neutrophils # 15.8 H Seg Neutrophils # Man Lymphocytes # (Manual) Monocytes # (Manual) Eosinophils # (Manual) Basophils # (Manual) PT INR D-Dimer ABG pH POC ABG pCO2 POC ABG pO2 ABG pO2 ABG HCO3 ABG O2 Saturation ABG Base Excess ABG Hemoglobin ABG Oxyhemoglobin ABG Potassium ABG Glucose Oxyhemoglobin Carboxyhemoglobin Sodium Potassium Chloride Carbon Dioxide 34 H BUN Creatinine < 0.2 L Glucose 127 H POC Glucose 129 H Calcium Ferritin Total Bilirubin Alkaline Phosphatase Lactate Dehydrogenase Total Creatine Kinase CK-MB (CK-2) Rel Index Troponin T C-Reactive Protein Total Protein Albumin Prealbumin LDL Cholesterol Direct Arterial Blood Glucose Arterial Blood Ionized Calcium Urine WBC (Auto) 03/27/20 03/27/20 03/28/20 17:28 23:22 05:23 WBC RBC Hgb Hct MCV MCH RDW Plt Count Lymph % (Auto) Lymph # (Auto) [place] # (Auto) Seg Neutrophils % Seg Neuts % (Manual) Lymphocytes % (Manual) Monocytes % (Manual) Basophils % (Manual) Seg Neutrophils # Seg Neutrophils # Man Lymphocytes # (Manual) Monocytes # (Manual) Eosinophils # (Manual) Basophils # (Manual) PT INR D-Dimer ABG pH POC ABG pCO2 POC ABG pO2 ABG pO2 ABG HCO3 ABG O2 Saturation ABG Base Excess ABG Hemoglobin ABG Oxyhemoglobin ABG Potassium ABG Glucose Oxyhemoglobin Carboxyhemoglobin Sodium Potassium Chloride Carbon Dioxide BUN Creatinine Glucose POC Glucose 108 H 119 H 129 H Calcium Ferritin Total Bilirubin Alkaline Phosphatase Lactate Dehydrogenase Total Creatine Kinase CK-MB (CK-2) Rel Index Troponin T C-Reactive Protein Total Protein Albumin Prealbumin LDL Cholesterol Direct Arterial Blood Glucose Arterial Blood Ionized Calcium Urine WBC (Auto) 03/28/20 03/28/20 03/28/20 10:28 10:28 11:36 WBC 23.6 H RBC 3.62 L Hgb 10.0 L Hct 30.8 L MCV MCH RDW 16.4 H Plt Count Lymph % (Auto) Lymph # (Auto) [place] # (Auto) Seg Neutrophils % Seg Neuts % (Manual) 89.0 H Lymphocytes % (Manual) 5.0 L Monocytes % (Manual) Basophils % (Manual) Seg Neutrophils # Seg Neutrophils # Man 21.0 H Lymphocytes # (Manual) Monocytes # (Manual) 1.2 H Eosinophils # (Manual) Basophils # (Manual) 0.2 H PT INR D-Dimer ABG pH POC ABG pCO2 POC ABG pO2 ABG pO2 ABG HCO3 ABG O2 Saturation ABG Base Excess ABG Hemoglobin ABG Oxyhemoglobin ABG Potassium ABG Glucose Oxyhemoglobin Carboxyhemoglobin Sodium 134 L Potassium Chloride 94.2 L Carbon Dioxide 35 H BUN Creatinine < 0.2 L Glucose 134 H POC Glucose Calcium Ferritin Total Bilirubin Alkaline Phosphatase Lactate Dehydrogenase Total Creatine Kinase CK-MB (CK-2) Rel Index Troponin T C-Reactive Protein Total Protein Albumin Prealbumin LDL Cholesterol Direct Arterial Blood Glucose Arterial Blood Ionized Calcium Urine WBC (Auto) 39.0 H 03/28/20 03/28/20 03/28/20 11:51 17:08 17:17 WBC RBC Hgb Hct MCV MCH RDW Plt Count Lymph % (Auto) Lymph # (Auto) [place] # (Auto) Seg Neutrophils % Seg Neuts % (Manual) Lymphocytes % (Manual) Monocytes % (Manual) Basophils % (Manual) Seg Neutrophils # Seg Neutrophils # Man Lymphocytes # (Manual) Monocytes # (Manual) Eosinophils # (Manual) Basophils # (Manual) PT INR D-Dimer ABG pH POC ABG pCO2 POC ABG pO2 ABG pO2 ABG HCO3 ABG O2 Saturation ABG Base Excess ABG Hemoglobin ABG Oxyhemoglobin ABG Potassium ABG Glucose Oxyhemoglobin Carboxyhemoglobin Sodium Potassium Chloride Carbon Dioxide BUN Creatinine Glucose POC Glucose 123 H 112 H Calcium Ferritin Total Bilirubin Alkaline Phosphatase Lactate Dehydrogenase Total Creatine Kinase 47 L CK-MB (CK-2) Rel Index 4.6 H Troponin T 0.090 H C-Reactive Protein Total Protein Albumin Prealbumin LDL Cholesterol Direct Arterial Blood Glucose Arterial Blood Ionized Calcium Urine WBC (Auto) 03/28/20 03/29/20 03/29/20 23:22 05:22 10:58 WBC RBC Hgb Hct MCV MCH RDW Plt Count Lymph % (Auto) Lymph # (Auto) [place] # (Auto) Seg Neutrophils % Seg Neuts % (Manual) Lymphocytes % (Manual) Monocytes % (Manual) Basophils % (Manual) Seg Neutrophils # Seg Neutrophils # Man Lymphocytes # (Manual) Monocytes # (Manual) Eosinophils # (Manual) Basophils # (Manual) PT INR D-Dimer ABG pH POC ABG pCO2 POC ABG pO2 ABG pO2 ABG HCO3 ABG O2 Saturation ABG Base Excess ABG Hemoglobin ABG Oxyhemoglobin ABG Potassium ABG Glucose Oxyhemoglobin Carboxyhemoglobin Sodium Potassium Chloride Carbon Dioxide BUN Creatinine Glucose POC Glucose 122 H 116 H 133 H Calcium Ferritin Total Bilirubin Alkaline Phosphatase Lactate Dehydrogenase Total Creatine Kinase CK-MB (CK-2) Rel Index Troponin T C-Reactive Protein Total Protein Albumin Prealbumin LDL Cholesterol Direct Arterial Blood Glucose Arterial Blood Ionized Calcium Urine WBC (Auto) 12/02/20 12/02/20 12/03/20 17:18 23:14 04:57 WBC RBC Hgb Hct MCV MCH RDW Plt Count Lymph % (Auto) Lymph # (Auto) [place] # (Auto) Seg Neutrophils % Seg Neuts % (Manual) Lymphocytes % (Manual) Monocytes % (Manual) Basophils % (Manual) Seg Neutrophils # Seg Neutrophils # Man Lymphocytes # (Manual) Monocytes # (Manual) Eosinophils # (Manual) Basophils # (Manual) PT INR D-Dimer ABG pH POC ABG pCO2 POC ABG pO2 ABG pO2 ABG HCO3 ABG O2 Saturation ABG Base Excess ABG Hemoglobin ABG Oxyhemoglobin ABG Potassium ABG Glucose Oxyhemoglobin Carboxyhemoglobin Sodium Potassium Chloride Carbon Dioxide BUN Creatinine Glucose POC Glucose 111 H 114 H 130 H Calcium Ferritin Total Bilirubin Alkaline Phosphatase Lactate Dehydrogenase Total Creatine Kinase CK-MB (CK-2) Rel Index Troponin T C-Reactive Protein Total Protein Albumin Prealbumin LDL Cholesterol Direct Arterial Blood Glucose Arterial Blood Ionized Calcium Urine WBC (Auto) 03/30/20 03/30/20 03/30/20 11:38 14:47 14:47 WBC 19.9 H RBC Hgb 10.9 L Hct 34.4 L MCV MCH 27 L RDW 16.5 H Plt Count 441 H Lymph % (Auto) 6.4 L Lymph # (Auto) [place] # (Auto) 1.4 H Seg Neutrophils % 86.1 H Seg Neuts % (Manual) Lymphocytes % (Manual) Monocytes % (Manual) Basophils % (Manual) Seg Neutrophils # 17.1 H Seg Neutrophils # Man Lymphocytes # (Manual) Monocytes # (Manual) Eosinophils # (Manual) Basophils # (Manual) PT INR D-Dimer ABG pH POC ABG pCO2 POC ABG pO2 ABG pO2 ABG HCO3 ABG O2 Saturation ABG Base Excess ABG Hemoglobin ABG Oxyhemoglobin ABG Potassium ABG Glucose Oxyhemoglobin Carboxyhemoglobin Sodium 133 L Potassium Chloride 94.6 L Carbon Dioxide 33 H BUN Creatinine < 0.2 L Glucose 194 H POC Glucose 139 H Calcium Ferritin Total Bilirubin Alkaline Phosphatase Lactate Dehydrogenase Total Creatine Kinase CK-MB (CK-2) Rel Index Troponin T C-Reactive Protein Total Protein Albumin 2.8 L Prealbumin LDL Cholesterol Direct Arterial Blood Glucose Arterial Blood Ionized Calcium Urine WBC (Auto) 03/30/20 03/31/20 03/31/20 17:07 05:02 15:21 WBC RBC Hgb Hct MCV MCH RDW Plt Count Lymph % (Auto) Lymph # (Auto) [place] # (Auto) Seg Neutrophils % Seg Neuts % (Manual) Lymphocytes % (Manual) Monocytes % (Manual) Basophils % (Manual) Seg Neutrophils # Seg Neutrophils # Man Lymphocytes # (Manual) Monocytes # (Manual) Eosinophils # (Manual) Basophils # (Manual) PT INR D-Dimer ABG pH POC ABG pCO2 POC ABG pO2 ABG pO2 ABG HCO3 ABG O2 Saturation ABG Base Excess ABG Hemoglobin ABG Oxyhemoglobin ABG Potassium ABG Glucose Oxyhemoglobin Carboxyhemoglobin Sodium Potassium Chloride Carbon Dioxide BUN Creatinine Glucose POC Glucose 163 H 108 H 110 H Calcium Ferritin Total Bilirubin Alkaline Phosphatase Lactate Dehydrogenase Total Creatine Kinase CK-MB (CK-2) Rel Index Troponin T C-Reactive Protein Total Protein Albumin Prealbumin LDL Cholesterol Direct Arterial Blood Glucose Arterial Blood Ionized Calcium Urine WBC (Auto) 03/31/20 03/31/20 04/01/20 17:58 23:19 05:09 WBC RBC Hgb Hct MCV MCH RDW Plt Count Lymph % (Auto) Lymph # (Auto) [place] # (Auto) Seg Neutrophils % Seg Neuts % (Manual) Lymphocytes % (Manual) Monocytes % (Manual) Basophils % (Manual) Seg Neutrophils # Seg Neutrophils # Man Lymphocytes # (Manual) Monocytes # (Manual) Eosinophils # (Manual) Basophils # (Manual) PT INR D-Dimer ABG pH POC ABG pCO2 POC ABG pO2 ABG pO2 ABG HCO3 ABG O2 Saturation ABG Base Excess ABG Hemoglobin ABG Oxyhemoglobin ABG Potassium ABG Glucose Oxyhemoglobin Carboxyhemoglobin Sodium Potassium Chloride Carbon Dioxide BUN Creatinine Glucose POC Glucose 110 H 131 H 124 H Calcium Ferritin Total Bilirubin Alkaline Phosphatase Lactate Dehydrogenase Total Creatine Kinase CK-MB (CK-2) Rel Index Troponin T C-Reactive Protein Total Protein Albumin Prealbumin LDL Cholesterol Direct Arterial Blood Glucose Arterial Blood Ionized Calcium Urine WBC (Auto) 04/01/20 11:50 WBC RBC Hgb Hct MCV MCH RDW Plt Count Lymph % (Auto) Lymph # (Auto) [place] # (Auto) Seg Neutrophils % Seg Neuts % (Manual) Lymphocytes % (Manual) Monocytes % (Manual) Basophils % (Manual) Seg Neutrophils # Seg Neutrophils # Man Lymphocytes # (Manual) Monocytes # (Manual) Eosinophils # (Manual) Basophils # (Manual) PT INR D-Dimer ABG pH POC ABG pCO2 POC ABG pO2 ABG pO2 ABG HCO3 ABG O2 Saturation ABG Base Excess ABG Hemoglobin ABG Oxyhemoglobin ABG Potassium ABG Glucose Oxyhemoglobin Carboxyhemoglobin Sodium Potassium Chloride Carbon Dioxide BUN Creatinine Glucose POC Glucose 136 H Calcium Ferritin Total Bilirubin Alkaline Phosphatase Lactate Dehydrogenase Total Creatine Kinase CK-MB (CK-2) Rel Index Troponin T C-Reactive Protein Total Protein Albumin Prealbumin LDL Cholesterol Direct Arterial Blood Glucose Arterial Blood Ionized Calcium Urine WBC (Auto) Chest x-ray: other (none today) Allied health notes reviewed: nursing
--- NOTE | 2020-04-01 14:43 | Progress Note ---
Assessment and Plan Assessment and plan: 59-year-old male patient with significant past medical history of ALS, presented to ED with worsening shortness of breath since the morning [employer]LECT[employer]. Patient was on a trilogy machine for breathing 18/11. EMS arrived, patient had O2 sats in the 80s. EMS attempted to place patient on their CPAP machine, hill john patient did not tolerate. Patient was admitted to the ICU with diagnosis of acute hypoxic respiratory failure and placed on BiPAP. Patient initially tolerated but later deteriorated with respiratory status. CTA chest showed no PE but significant for bilateral pneumonia. Doppler ultrasound also negative for DVT. COVID-19 test ordered. Due to persistent hypoxia, patient was intubated on 02/26/2020 at 1500. Patient now on mechanical ventilation in the ICU. 02/26/2020. Blood cultures are negative x48 hours and Covid testing negative as well. Continue antibiotics per ID recommendations for community-acquired bilateral pneumonia. Cardiology consultation for elevated troponin. Check echocardiogram. 02/27/2020. Events of yesterday noted with asystole following V. fib arrest. Patient currently on AC mode rate 20, tidal volume 400, FiO2 50% and a PEEP of 6. Follow-up echocardiogram for elevated troponin. Cardiology suspects NSTEMI Type 2 in the setting of acute resp failure. Chest CTA and BLE Dopplers neg. we will discontinue Decadron given the Covid PCR is negative. 02/25/2020. CTA of the chest reveals no PE but does illustrate the bilateral pneumonia. Doppler ultrasound also negative for DVT. Blood cultures are pending. Await COVID-19 testing. Patient currently requiring BiPAP IPAP 24/EPAP 6 with FiO2 of 25%. Continue O2 and BiPAP as clinically indicated. ID and pulmonary consulted. 02/26/2020. Blood cultures are negative x48 hours and Covid testing negative as well. Continue antibiotics per ID recommendations for community-acquired bilateral pneumonia. Cardiology consultation for elevated troponin. Check echocardiogram. 02/27/2020. Events of yesterday noted with asystole following V. fib arrest. Patient currently on AC mode rate 20, tidal volume 400, FiO2 50% and a PEEP of 6. Follow-up echocardiogram for elevated troponin. Cardiology suspects NSTEMI Type 2 in the setting of acute resp failure. Chest CTA and BLE Dopplers neg. we will discontinue Decadron given the Covid PCR is negative. 02/28/2020. I spoke with the sister Felisa Eli who is the power of staff attorney regarding advanced directives and she instructed me that she would like to continue with aggressive care at this time. I informed her of the guarded prognosis and high mortality/morbidity and she voiced understanding. Patient currently with AC mode ventilation rate 18, tidal volume 400, FiO2 40% and a PEEP of 6. Continue antibiotics for pneumonia. ID previously consulted. Also consult neurology with regards to ALS. 02/29/2020; patient is intubated and on CPAP patient is alert and oriented. Patient has ALS. Dr. Álvarez spoke with his sister and she wants aggressive care. Continue antibiotics for pneumonia. Neurology consulted for ALS. Prognosis poor 03/01/2020; patient is intubated and on CPAP, patient is alert and oriented. I spoke with his 2 sisters about the management plan. 03/02/2020; patient is intubated and on CPAP. Patient was alert and oriented. I spoke with Dr. mohr and he thinks patient may need mechanical ventilation, likely his disease progressed. Dr. Flowers did debridement this morning. 03/03/2020; patient is intubated and on CPAP, patient was on trilogy and BiPAP at home. Patient has ALS. on spontaneous breathing trial. Patient is alert and oriented but quadriplegic. Patient has severe bilateral pneumonia and is on cefepime and Vanco, ID is following. Patient has sacral decubitus ulcer and debridement was done by Dr. Flowers and there is no osteomyelitis. 03/05. Patient still on broad-spectrum antibiotics. Status post sacral decubitus ulcer debridements-no osteomyelitis. Patient is on AC 25/400/30% PEEP 5. No blood gas results today. 03/06. Plan for tracheostomy by surgery. Still remains intubated. Labs reviewed-sodium 150. Started on free water 200 every 8hr. trend sodium. 03/07: s/p trach placement today, patient placed back on mechanical ventilation with trach. Plan to resume tube feeding with NG tube. Continue to monitor vitals, monitor BMP. 03/08: Patient noted to have distended abdomen with low urinary output. Obtain bladder scan rule out urine retention, UA and urine culture, continue to follow clinically. 03/09: Patient noted to have low blood pressure with SBP as low as 70s. Ordered for 500 mils normal saline bolus. CT abdomen showed bladder outlet obstruction, urology consulted. 03/10: placed on drake by urology o/n, improved urine outpt. cont to monitor BMP. resuded TF - cont free water with TF. wean off from vent as tolerated. 03/11: Vitals stable. cont TF, wean off from vent as tolerated. start on 1/2 NS for hypernatremia - follow BMP 03/12: wean off vent as tolerated, plan for speech eval, cont Tf for now, cont iv fluid 03/13: unable to wean off from vent, unable to do speech therapy eval. will need PEG tube, cont supportive care for now, cont NG tube feeding 03/14: consulted GI for PEg placemnet, cont supportive care. remains on vent at night 03/15: Discussed with GI, plan for PEG tube placement possibly tomorrow. Continue supportive care and wean off from vent as tolerated. Hold Lovenox dose tonight. 03/16: family didnot consent for PEG placement yesterday. I spoke with the daughter today and she is now agreeable for PEG tube. I explained the necessity of the procedure with RN to the patient also and he nodded started on tube feeding, for the procedure. will cont supportive care. planned for PEG tube placement tomorrow. 03/17: s/p PEG placement today, patient tolerated well, cont supportive care 03/18: Started on tube feeding with new PEG tube, continue to wean off vent as tolerated 03/19: cont to monitor with supportive care, wean off vent as tolerated 03/20: Continue to wean off vent as tolerated -but failing weaning trial. Still requiring vent support at night. Currently on PEG tube for tube feed. 03/21. Pt with PSV trials with FiO@ 30%, PEEP 6, PS 10. Currently on PEG tube for tube feed. 03/22/2020. Continue PSV trials per pulmonary. Continue bronchodilators. Patient tolerating tube feedings. Continue Robinul for secretion control. 03/23/2020. Continue PSV trials per pulmonary. Continue bronchodilators. Continue Scopolamine and Robinul for secretion control. Trach care/airway management. Mobility protocols for pressure ulcer prophylaxis. LTAC evaluation per case management 03/24/2020. Continue PSV trials with current settings pressure support 10, PEEP 6 and FiO2 30%. Continue bronchodilators/nebulizer. Continue Scopolamine and Robinul for secretion control. Trach care/airway management. Mobility protocols for pressure ulcer prophylaxis. LTAC evaluation per case management 03/25/2020. Pulmonary to proceed with T-piece trials today. Continue bronchodilators/nebulizer. Continue Scopolamine and Robinul for secretion control. Trach care/airway management. Mobility protocols for pressure ulcer prophylaxis. 03/26/2020. Patient currently with PSV 10/6 at FiO2 of 30%. Continue weaning and T-piece trials per protocol. Continue bronchodilators/nebulizer. Continue Scopolamine and Robinul for secretion control. Trach care/airway management. Mobility protocols for pressure ulcer prophylaxis. Continue tube feeding with aspiration precautions. 03/27/2020. Patient currently with PSV 10/6 at FiO2 of 30%. Continue weaning and T-piece trials per protocol. Continue bronchodilators/nebulizer. Continue Scopolamine and Robinul for secretion control. Trach care/airway management. Mobility protocols for pressure ulcer prophylaxis. Continue tube feeding with aspiration precautions. 03/28. Had temp 100.7F. He has been off antibiotics. Will send blood culture, ua, urine culture and chest xray. Had chest pain overnight and trop was elevated as well. Cardiology to evaluate 03/29. Has back pain due to position. He mentions his chest pain is positional. Has no other complaints. Still on mechanical ventilation 03/30. No chest pain today. Labs reviewed. Discussed chest pain with cardiology and team advised no further work up at this time. Can follow up with cardiology in the office after hospitalization 03/31. Lidocaine patch for lower back pain. 04/01. Discharge planning underway. CM notes reviewed The high probability of a clinically significant, sudden or life threatening deterioration of the [cardiac and respiratory] system(s) required my full and direct attention, intervention and personal management. The aggregate critical care time was [32] minutes. This time is in addition to time spent performing reported procedures but includes the following: [x] Data Review and interpretation [x] Patient assessment and monitoring of vital signs [x] Documentation [x] Medication orders and management Assessment and Plan --Acute hypoxic hypercapnic respiratory failure; Trach to vent --ALS - Stable --Elevated D-dimers; CTA chest, lower extremity venous Doppler both are negative Lovenox DVT prophylaxis --Bilateral pneumonia; probably community-acquired Resolved --Sepsis secondary to pneumonia Resolved --Elevated troponin Likely type II MT Cardiology follow up at discharge ---Fever Resolved Complete antibiotics --DVT prophylaxis; Lovenox History Interval history: Patient seen and examined at bedside Intubated Awake on vent Eager to be discharged Hospitalist Physical - Physical exam Narrative exam: VITAL SIGNS: Reviewed. GENERAL: Awake. trach to vent HEAD: No signs of head trauma. EYES: Pupils are equal. Extraocular motions intact. EARS: Hearing grossly intact. MOUTH: Oropharynx is normal. NECK: No adenopathy, no JVD. CHEST: Coarse breath sounds bilaterally CARDIAC: Regular rate and rhythm. S1 and S2, without murmurs, gallops, or rubs. VASCULAR: No Edema. Peripheral pulses normal and equal in all extremities. ABDOMEN: Soft, non tender and non distended. No rebound or guarding, and no masses palpated. Bowel Sounds normal. NEUROLOGIC EXAM: Awake SKIN: No obvious lesions - Constitutional Vitals: Temp Pulse Resp BP Pulse Ox 98 F 106 H 30 H 137/90 94 04/01/20 12:00 04/01/20 13:00 04/01/20 13:00 04/01/20 13:00 04/01/20 13:00 HEART Score - HEART Score Troponin: Troponin T 0.090 ng/mL (0.00-0.029) H 03/28/20 17:17 Results - Labs CBC & Chem 7: 03/30/20 14:47 03/30/20 14:47 Labs: Laboratory Last Values WBC 19.9 K/mm3 (4.5-11.0) H 03/30/20 14:47 RBC 4.01 M/mm3 (3.65-5.03) 03/30/20 14:47 Hgb 10.9 gm/dl (11.8-15.2) L 03/30/20 14:47 Hct 34.4 % (35.5-45.6) L 03/30/20 14:47 MCV 86 fl (84-94) 03/30/20 14:47 MCH 27 pg (28-32) L 03/30/20 14:47 MCHC 32 % (32-34) 03/30/20 14:47 RDW 16.5 % (13.2-15.2) H 03/30/20 14:47 Plt Count 441 K/mm3 (140-440) H 03/30/20 14:47 Lymph % (Auto) 6.4 % (13.4-35.0) L 03/30/20 14:47 [place] % (Auto) 7.2 % (0.0-7.3) 03/30/20 14:47 Eos % (Auto) 0.1 % (0.0-4.3) 03/30/20 14:47 Baso % (Auto) 0.2 % (0.0-1.8) 03/30/20 14:47 Lymph # (Auto) 1.3 K/mm3 (1.2-5.4) 03/30/20 14:47 [place] # (Auto) 1.4 K/mm3 (0.0-0.8) H 03/30/20 14:47 Eos # (Auto) 0.0 K/mm3 (0.0-0.4) 03/30/20 14:47 Baso # (Auto) 0.0 K/mm3 (0.0-0.1) 03/30/20 14:47 Add Manual Diff Complete 03/28/20 10:28 Total Counted 100 03/28/20 10:28 Seg Neutrophils % 86.1 % (40.0-70.0) H 03/30/20 14:47 Seg Neuts % (Manual) 89.0 % (40.0-70.0) H 03/28/20 10:28 Band Neutrophils % 0 % 03/28/20 10:28 Lymphocytes % (Manual) 5.0 % (13.4-35.0) L 03/28/20 10:28 Reactive Lymphs % (Man) 0 % 03/28/20 10:28 Monocytes % (Manual) 5.0 % (0.0-7.3) 03/28/20 10:28 Eosinophils % (Manual) 0 % (0.0-4.3) 03/28/20 10:28 Basophils % (Manual) 1.0 % (0.0-1.8) 03/28/20 10:28 Metamyelocytes % 0 % 03/28/20 10:28 Myelocytes % 0 % 03/28/20 10:28 Promyelocytes % 0 % 03/28/20 10:28 Blast Cells % 0 % 03/28/20 10:28 Nucleated RBC % Not Reportable 03/28/20 10:28 Seg Neutrophils # 17.1 K/mm3 (1.8-7.7) H 03/30/20 14:47 Seg Neutrophils # Man 21.0 K/mm3 (1.8-7.7) H 03/28/20 10:28 Band Neutrophils # 0.0 K/mm3 03/28/20 10:28 Lymphocytes # (Manual) 1.2 K/mm3 (1.2-5.4) 03/28/20 10:28 Abs React Lymphs (Man) 0.0 K/mm3 03/28/20 10:28 Monocytes # (Manual) 1.2 K/mm3 (0.0-0.8) H 03/28/20 10:28 Eosinophils # (Manual) 0.0 K/mm3 (0.0-0.4) 03/28/20 10:28 Basophils # (Manual) 0.2 K/mm3 (0.0-0.1) H 03/28/20 10:28 Metamyelocytes # 0.0 K/mm3 03/28/20 10:28 Myelocytes # 0.0 K/mm3 03/28/20 10:28 Promyelocytes # 0.0 K/mm3 03/28/20 10:28 Blast Cells # 0.0 K/mm3 03/28/20 10:28 WBC Morphology Not Reportable 03/28/20 10:28 Hypersegmented Neuts Not Reportable 03/28/20 10:28 Hyposegmented Neuts Not Reportable 03/28/20 10:28 Hypogranular Neuts Not Reportable 03/28/20 10:28 Smudge Cells Not Reportable 03/28/20 10:28 Toxic Granulation 1+ 03/28/20 10:28 Toxic Vacuolation Not Reportable 03/28/20 10:28 Dohle Bodies Not Reportable 03/28/20 10:28 Pelger-Huet Anomaly Not Reportable 03/28/20 10:28 Robert Rods Not Reportable 03/28/20 10:28 Platelet Estimate Consistent w auto 03/28/20 10:28 Clumped Platelets Not Reportable 03/28/20 10:28 Plt Clumps, EDTA Not Reportable 03/28/20 10:28 Large Platelets Not Reportable 03/28/20 10:28 Giant Platelets Not Reportable 03/28/20 10:28 Platelet Satelliting Not Reportable 03/28/20 10:28 Plt Morphology Comment Not Reportable 03/28/20 10:28 RBC Morphology Not Reportable 03/28/20 10:28 Dimorphic RBCs Not Reportable 03/28/20 10:28 Polychromasia Not Reportable 03/28/20 10:28 Hypochromasia Not Reportable 03/28/20 10:28 Poikilocytosis Not Reportable 03/28/20 10:28 Anisocytosis 1+ 03/28/20 10:28 Microcytosis Not Reportable 03/28/20 10:28 Macrocytosis Not Reportable 03/28/20 10:28 Spherocytes Not Reportable 03/28/20 10:28 Pappenheimer Bodies Not Reportable 03/28/20 10:28 Sickle Cells Not Reportable 03/28/20 10:28 Target Cells Not Reportable 03/28/20 10:28 Tear Drop Cells Not Reportable 03/28/20 10:28 Ovalocytes Not Reportable 03/28/20 10:28 Stomatocytes Few 03/17/20 04:40 Helmet Cells Not Reportable 03/28/20 10:28 Gregory-Monson Bodies Not Reportable 03/28/20 10:28 Galvin Rings Not Reportable 03/28/20 10:28 [place] Cells Not Reportable 03/28/20 10:28 Bite Cells Not Reportable 03/28/20 10:28 Crenated Cell Not Reportable 03/28/20 10:28 Elliptocytes Not Reportable 03/28/20 10:28 Acanthocytes (Spur) Not Reportable 03/28/20 10:28 Rouleaux Not Reportable 03/28/20 10:28 Hemoglobin C Crystals Not Reportable 03/28/20 10:28 Schistocytes Not Reportable 03/28/20 10:28 Malaria parasites Not Reportable 03/28/20 10:28 Colton Bodies Not Reportable 03/28/20 10:28 Hem Pathologist Commnt No 03/28/20 10:28 PT 15.6 Sec. (12.2-14.9) H 02/24/20 09:19 INR 1.21 (0.87-1.13) H 02/24/20 09:19 APTT 25.4 Sec. (24.2-36.6) 02/24/20 09:19 D-Dimer 1311.96 ng/mlDDU (0-234) H 02/24/20 09:19 ABG pH 7.371 (7.320-7.450) 03/08/20 12:34 POC ABG pCO2 63.1 mmHg (32.0-48.0) H 03/08/20 12:34 ABG pCO2 60.1 mm Hg 03/06/20 04:34 POC ABG pO2 90.5 mmHg (83-108) 03/08/20 12:34 ABG pO2 88.6 mm Hg (80.0-90.0) 03/06/20 04:34 POC ABG HCO3 35.7 03/08/20 12:34 ABG HCO3 37.9 mmol/L (20.0-26.0) H 03/06/20 04:34 ABG O2 Saturation 97.0 % (95.0-99.0) 03/06/20 04:34 ABG O2 Content 14.3 (0.0-44) 03/06/20 04:34 POC ABG Base Excess 8.7 03/08/20 12:34 ABG Base Excess 11.4 mmol/L (-2.0-3.0) H 03/06/20 04:34 ABG Hemoglobin 10.9 (12.0-17.5) L 03/08/20 12:34 ABG Oxyhemoglobin 95.9 (94-98) 03/08/20 12:34 ABG Carboxyhemoglobin 1.7 % (0.0-5.0) 03/06/20 04:34 ABG Methemoglobin 0.3 (0.0-1.5) 03/08/20 12:34 ABG Sodium 143.6 mmol/L (136.0-145.0) 03/08/20 12:34 ABG Potassium 3.8 mmol/L (3.40-4.50) 03/08/20 12:34 ABG Chloride 102.0 mmol/L (98-107) 03/08/20 12:34 ABG Glucose 176 mg/dL (65-95) H 03/08/20 12:34 Oxyhemoglobin 94.7 % (95.0-99.0) L 03/06/20 04:34 Carboxyhemoglobin 0.7 (0.5-1.5) 03/08/20 12:34 FiO2 30 03/08/20 12:34 Sodium 133 mmol/L (137-145) L 03/30/20 14:47 Potassium 4.7 mmol/L (3.6-5.0) 03/30/20 14:47 Chloride 94.6 mmol/L (98-107) L 03/30/20 14:47 Carbon Dioxide 33 mmol/L (22-30) H 03/30/20 14:47 Anion Gap 10 mmol/L 03/30/20 14:47 BUN 16 mg/dL (9-20) 03/30/20 14:47 Creatinine < 0.2 mg/dL (0.8-1.3) L 03/30/20 14:47 Estimated GFR > 60 ml/min 03/30/20 14:47 BUN/Creatinine Ratio 80 % 03/30/20 14:47 Glucose 194 mg/dL (75-100) H 03/30/20 14:47 POC Glucose 136 mg/dL (70-105) H 04/01/20 11:50 Lactic Acid 1.00 mmol/L (0.7-2.0) 02/24/20 12:07 Calcium 9.1 mg/dL (8.4-10.2) 03/30/20 14:47 Phosphorus 3.30 mg/dL (2.5-4.5) 03/29/20 14:35 Magnesium 2.00 mg/dL (1.7-2.3) 03/29/20 14:35 Ferritin 1715.0 ng/mL (30.0-300.0) H 02/24/20 10:01 Total Bilirubin 0.40 mg/dL (0.1-1.2) 03/30/20 14:47 AST 22 units/L (5-40) 03/30/20 14:47 ALT 16 units/L (7-56) 03/30/20 14:47 Alkaline Phosphatase 78 units/L (35-129) 03/30/20 14:47 Lactate Dehydrogenase 303 units/L (91-180) H 02/24/20 09:19 Total Creatine Kinase 47 units/L (55-170) L 03/28/20 17:17 CK-MB (CK-2) 2.2 ng/mL (0.0-4.0) 03/28/20 17:17 CK-MB (CK-2) Rel Index 4.6 (0-4) H 03/28/20 17:17 Troponin T 0.090 ng/mL (0.00-0.029) H 03/28/20 17:17 C-Reactive Protein 4.70 mg/dL (0.00-1.30) H 02/28/20 11:05 NT-Pro-B Natriuret Pep 48.30 pg/mL (0-900) 02/24/20 09:19 Total Protein 7.7 g/dL (6.3-8.2) 03/30/20 14:47 Albumin 2.8 g/dL (3.9-5) L 03/30/20 14:47 Albumin/Globulin Ratio 0.6 % 03/30/20 14:47 Prealbumin 0.090 g/L (0.200-0.400) L 02/28/20 12:54 Triglycerides 34 mg/dL (2-149) 03/22/20 18:00 Cholesterol 104 mg/dL (50-199) 03/22/20 18:00 LDL Cholesterol Direct 54 mg/dL (50-130) 03/22/20 18:00 HDL Cholesterol 40 mg/dL (40-59) 03/22/20 18:00 Cholesterol/HDL Ratio 2.60 % 03/22/20 18:00 Procalcitonin < 0.05 ng/mL (<0.15) 03/28/20 17:12 Arterial Blood Glucose 176 mg/dL (65-95) H 03/08/20 12:34 Arterial Blood Ionized Calcium 4.5 mg/dL (4.6-5.3) L 03/08/20 12:34 Urine Color Yellow (Yellow) 03/28/20 11:36 Urine Turbidity Hazy (Clear) 03/28/20 11:36 Urine pH 5.0 (5.0-7.0) 03/28/20 11:36 Ur Specific [place] 1.026 (1.003-1.030) 03/28/20 11:36 Urine Protein 100 mg/dl mg/dL (Negative) 03/28/20 11:36 Urine Glucose (UA) Neg mg/dL (Negative) 03/28/20 11:36 Urine Ketones Neg mg/dL (Negative) 03/28/20 11:36 Urine Blood Neg (Negative) 03/28/20 11:36 Urine Nitrite Neg (Negative) 03/28/20 11:36 Urine Bilirubin Neg (Negative) 03/28/20 11:36 Urine Urobilinogen 4.0 mg/dL (<2.0) 03/28/20 11:36 Ur Leukocyte Esterase Mod (Negative) 03/28/20 11:36 Urine WBC (Auto) 39.0 /HPF (0.0-6.0) H 03/28/20 11:36 Urine RBC (Auto) 16.0 /HPF (0.0-6.0) 03/28/20 11:36 U Epithel Cells (Auto) < 1.0 /HPF (0-13.0) 03/08/20 08:57 Urine Bacteria (Auto) 2+ /HPF (Negative) 03/28/20 11:36 Urine Mucus 3+ /HPF 03/28/20 11:36 Urine Yeast (Budding) 2+ /HPF 03/28/20 11:36 Vancomycin Trough 8.0 ug/mL (5.0-20.0) 03/04/20 08:59 Coronavirus (PCR) Negative (Negative) 02/25/20 09:03 Microbiology: Microbiology 03/28/20 17:12 Peripheral/Venous Blood Culture - Preliminary NO GROWTH AFTER 72 HOURS 03/28/20 17:12 Peripheral/Venous Blood Culture - Preliminary NO GROWTH AFTER 72 HOURS - Diagnostic Impressions Diagnostic Impressions: Echocardiogram 02/26/20 10:41 Transthoracic Echocardiogram Indication: Elevated Trop BP: 116/75 HR: 85 Conclusions *Global left ventricular wall motion and contractility are within normal limits. *The estimated ejection fraction is 50-55%. *Abnormal left ventricular diastolic filling is observed, consistent with impaired relaxation. *There is no pericardial effusion. Findings Left Ventricle: The left ventricular chamber size is normal. Global left ventricular wall motion and contractility are within normal limits. Global left ventricular systolic function is normal. The estimated ejection fraction is 50-55%. Abnormal left ventricular diastolic filling is observed, consistent with impaired relaxation. Left Atrium: The left atrial chamber size is normal. Right Ventricle: The right ventricular cavity size is normal. Right Atrium: The right atrial cavity size is normal. Aortic Valve: Mild aortic leaflet calcification is visualized. There is no evidence of aortic regurgitation. Mitral Valve: The mitral valve leaflets are mildly thickened. There is no evidence of mitral regurgitation. Tricuspid Valve: The tricuspid valve leaflets are normal. There is trace tricuspid regurgitation. The right ventricular systolic pressure is calculated at 29 mmHg. Pulmonic Valve: The pulmonic valve is not well visualized. Pericardium: There is no pericardial effusion. Aorta: The aorta appears normal. Venous: The inferior vena cava is dilated. There is less than 50% respiratory change in the inferior vena cava dimension. Measurements Chambers 2D Name Value Normal Range IVSd (2D) 0.97 cm (0.6 - 1.1) LVPWd (2D) 0.93 cm (0.6 - 1.1) LVIDd (2D) 4 cm (3.7 - 5.6) LVIDs (2D) 2.73 cm (2 - 3.8) LV FS (2D) 31.67 % - EF Teichholz (2D) 60.23 % - Ao root diameter (2D) 3.51 cm (2 - 3.7) Volumes/Mass Name Value Normal Range LA ESV SP 4CH (A/L) 8.43 ml - LA ESV SP 2CH (A/L) 18.89 ml - LA ESV BP (A/L) 13.02 ml - LA ESV BP (A/L) index 8.8 ml/m2 - LA ESV SP 4CH (MOD) 7.22 ml - LA ESV SP 2CH (MOD) 18.15 ml - LA ESV BP (MOD) 11.47 ml - LA ESV BP (MOD) index 7.75 ml/m2 - Diastolic/Systolic Function Name Value Normal Range MV E-wave Vmax 0.51 m/sec - MV deceleration time 180.22 msec - MV A-wave Vmax 0.62 m/sec - MV E:A ratio 0.82 ratio - Aortic Valve Name Value Normal Range AV Vmax 1.17 m/sec - AV VTI 19.71 cm - AV peak gradient 5.44 mmHg - AV mean gradient 3.38 mmHg - LVOT diameter 2.26 cm - LVOT Vmax 0.89 m/sec - LVOT VTI 13.72 cm - LVOT peak gradient 3.17 mmHg - LVOT mean gradient 1.67 mmHg - SV LVOT 55.03 ml - SHARAD (continuity Vmax) 3.06 cm2 - SHARAD (continuity VTI) 2.79 cm2 - Tricuspid Valve Name Value Normal Range TR Vmax 2.3 m/sec - TR peak gradient 21 mmHg - RAP 8 mmHg - RVSP 29 mmHg - IVC diameter 2.59 cm (1.2 - 2.3) Pulmonic Valve/Qp:Qs Name Value Normal Range PV acceleration time 68.51 msec - Drake/IV: Voiding Method Indwelling Catheter IV Catheter Type [Left Hand] Peripheral IV IV Catheter Type [Right Hand] Peripheral IV IV Catheter Type [Left Wrist] Peripheral IV IV Catheter Type [Right Peripheral IV Forearm] IV Catheter Type [Right Triple Lumen Cath Internal Jugular] IV Catheter Type [Left Forearm INT / Saline Lock ] IV Catheter Type [Right Triple Lumen Cath Femoral] IV Catheter Type [Right INT / Saline Lock Antecubital] Active Medications - Current Medications Current Medications: Generic Name Dose Route Start Last Admin Trade Name Freq PRN Reason Stop Dose Admin Acetaminophen 650 mg 02/24/20 15:13 03/08/20 00:10 Tylenol PO 650 mg Q4H PRN Administration Pain, Mild (1-3) Albuterol 2.5 mg 02/24/20 15:13 Proventil IH Q4HRT PRN Shortness Of Breath Alprazolam 0.5 mg 03/30/20 14:19 04/01/20 09:39 Xanax PO 0.5 mg Q8H PRN Administration Anxiety Lipase/Protease/Amylase 1 each 02/26/20 11:[address] 10,500 Unit FEEDTUBE PRN PRN For Clogged Feeding Tube Bisacodyl 10 mg 03/12/20 18:00 03/15/20 17:50 Dulcolax UT 10 mg QDAY PRN Administration Bowel Movement Enoxaparin Sodium 40 mg 03/20/20 22:00 03/31/20 20:59 Enoxaparin SUB-Q 40 mg QDAY@2200 ALISA Administration Protocol Glycopyrrolate 2 mg 03/26/20 08:00 04/01/20 09:10 Robinul PO 2 mg TID ALISA Administration Lansoprazole 30 mg 02/28/20 10:00 04/01/20 09:39 Prevacid Solutab FEEDTUBE 30 mg QDAY ALISA Administration Lidocaine 1 each 03/31/20 10:00 04/01/20 10:34 Lidoderm 5% TD 1 each QDAY ALISA Administration Metoprolol Tartrate 12.5 mg 02/24/20 22:00 04/01/20 09:38 Metoprolol PO 12.5 mg BID ALISA Administration Morphine Sulfate 2 mg 02/29/20 16:42 04/01/20 10:33 Morphine IV 2 mg Q4H PRN Administration Pain, Moderate (4-6) Scopolamine 1 each 03/03/20 14:00 03/30/20 09:15 Transderm-Scop TD 1 each Q3D ALISA Administration Simple Syrup 15 ml 02/26/20 11:16 Simple Syrup FEEDTUBE PRN PRN Hypoglycemia Simple Syrup 30 ml 02/26/20 11:16 Simple Syrup FEEDTUBE PRN PRN Hypoglycemia Sodium Bicarbonate 325 mg 02/26/20 11:16 Sodium Bicarbonate FEEDTUBE PRN PRN For Clogged Feeding Tube Sodium Hypochlorite 1 applic 03/31/20 13:00 04/01/20 09:40 Dakin's Half Strength TP 1 bottle BID ALISA Administration Tamsulosin HCl 0.4 mg 03/09/20 18:00 04/01/20 09:38 Flomax PO 0.4 mg QDAY ALISA Administration Zolpidem Tartrate 10 mg 03/31/20 20:15 03/31/20 20:59 Ambien PO 10 mg QHS PRN Administration Sleep Nutrition/Malnutrition Assess - Dietary Evaluation Nutrition/Malnutrition Findings: Nutrition Notes Start: 02/26/20 10:40 Freq: Status: Active Protocol: Document 03/28/20 11:24 EN (Rec: 03/28/20 11:50 EN [id number]) Co-Sign 03/28/20 11:24 NHALL Nutrition Notes Initial or Follow up Reassessment Current Diagnosis Decubitus(Pressure Ulcer), Sepsis,Respiratory Failure Other Pertinent Diagnosis COVID-19 (-), ALS, pneumonia, Hip/buttock PU Current Diet Vital AF 1.2 at 75ml/hr (goal rate) Labs/Tests Reviewed Pertinent Medications Reviewed Height 6 ft Weight 66 kg [place] Body Weight (kg) 80.90 BMI 19.7 Weight Status Appropriate Subjective/Other Information Pt continues tolerating TF at goal rate. 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 Yes Is Patient Ambulatory and/or Out of Bed No [facility] 1820.472 Kcal/Kg value to use for calculation 35 Approximate Energy Requirements Using 2310 kcal/Kg Calculation Used for Recommendations Kcal/kg Additional Notes Protein needs: 88-147 g (1.2-2 g/ kg ABW) Fluid: 1ml/kcal Nutrition Intervention Change Diet Order: Continue TF Nutrition Support: Vital AF 1.2 at 75ml/hr. Flush 200ml q4h For hyponatremia, flush 150 mL q4h Kcal 2,160 Protein (gm) 135 Fluid (mL) 1,460 Add Supplement/Snack (indicate name/kcal Will BID /protein ) Provides kCal: 190 Provides Protein (gm) 5 Goal #1 Meet at least 80% of energy and protein needs via TF Goal #2 Wound healing Anticipated Discharge Needs: Unable to determine at this time Follow-Up By: 04/04/20 Additional Comments Follow for stable TF
[2020-04-01] MEDS: ENOXAPARIN 40 MG/0.4 ML INJ SUB-Q SCH (21:29)
[2020-04-01] MEDS: ZOLPIDEM 5 MG TAB PO PRN (22:44)
[2020-04-02] MEDS: MORPHINE 2 MG/1 ML INJ IV PRN ×4 (03:30→21:33)
[2020-04-02] MEDS: GLYCOPYRROLATE 1 MG TAB PO SCH ×3 (08:57→21:23)
[2020-04-02] MEDS: LIDOCAINE 5% 1 EACH PATCH TD SCH (09:01)
[2020-04-02] MEDS: TAMSULOSIN 0.4 MG CAP PO SCH (09:01)
[2020-04-02] MEDS: SCOPOLAMINE TRANSDERMAL PATCH 72 HR TD SCH (09:01)
[2020-04-02] MEDS: METOPROLOL TARTRATE 25 MG TAB PO SCH ×2 (09:01→21:23)
[2020-04-02] MEDS: LANSOPRAZOLE 30 MG SOLUTAB FEEDTUBE SCH (09:01)
[2020-04-02] MEDS: SODIUM HYPOCHLORITE, DAKIN'S 1/2 STRENGTH (0.25%) 473 ML TOPICAL SOLN TP SCH ×2 (09:02→21:23)
--- NOTE | 2020-04-02 12:29 | Progress Note ---
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 Respiratory Failure Severe Sepsis with Shock Bilateral Pneumonia (Possible aspiration) History of ALS on Trilogy Oropharyngeal Dysphagia PUI-COVID Acute toxic metabolic encephalopathy Elevated D-dimer Elevated troponin possibly type 2 ischemia - dropped p-supp to 6 cm H2O but desaturated after 1-2 hours as well as developed tachypnea to the 40's (quickly resolved with increasing p-supp to 15 and now weaned back to 10) - RT to wean further to 8 - case management re-evaluation in am - continue care as below otherwise; - continue daytime t-piece trial attempts as tolerated (PSV if fails) - agrees to possible LTAC transfer while he is trying to find family members that may be trained for home ventilator support - wants us to talk to his "? personal casey saw operator" (case management trying to reach her) - may become penitentiary vent dependent but too early to classify as such - continue ambien 10 mg qhs prn - continue xanax 0.5 mg po q8h prn - continue to rest on AC overnight for now - continue to optimize electrolytes (prn BMP, Mg & PO4) - repeat CXR prn +/- bronchoscopy for mucus plugging / large volume atelectasis - continue to rest on AC qhs - LTAC evaluation is appropriate - continue Robinul & scopolamine for secretion control - prn electrolytes and optimize K+ & Mg 2+ for best respiratory muscle function - wound care per RN/WCN - continue Scopolamine patch for secretion control - wean supplemental oxygen for target O2 sat's > 92% acutely - bronchodilators with pulmonary hygiene per RT - VAP bundle addressed - continue lung protective strategies - continue bronchodilators with pulmonary hygiene per RT - wean per pulmonary driven protocols otherwise - sedation prn for target RASS 0 to -1 - s/p empiric antiinfectives per ID rec's (Rocephin and Zithromax) - s/p COVID-19 isolation (Airborne & Contact) - empiric Dexamethasone - follow COVID-19 test results (negative) - trend inflammatory markers to aid clinical decision making - enteral nutrition at goal rate as tolerated - Aspiration precautions - accuchecks with glycemic control per SSI (While critically ill target blood glucose of 140-180 mg/dL; avoid hypoglycemia) - avoid nephrotoxins, renally dose all medications - avoid benzodiazepine's, reduce the possibility of delirium - prn analgesia per CPOT score - Maintenance of sleep-wake cycle, avoid delirium - aspiration precautions - G.I. & VTE prophylaxis - PT/OT/ROM exercises - mobility protocols for pressure ulcer prophylaxis - Monitor hemodynamics closely - continue other care per attending / other consultants - discharge planning ongoing concurrently .... Re-evaluate in am & prn CONDITION: CRITICAL PROGNOSIS: GUARDED CODE STATUS: FULL CODE The high probability of a clinically significant, sudden or life-threatening deterioration of the [respiratory, cardiovascular & neurologic] system(s) required my full and direct attention, intervention and personal management. The aggregate critical care time was [38] minutes without overlap. Time includes spent on; [x] Data Review and interpretation [x] Patient assessment and monitoring of vital signs [x] Documentation [x] Medication orders and management Subjective Date of service: 04/02/20 Principal diagnosis: Ac on Ch Hypercapnic & hypoxemic Resp Failure; Severe Sepsis; Jamar PNA; ALS Interval history: Patient is seen today for: Acute on Chronic Hypercapnic & hypoxemic Respiratory Failure; Severe Sepsis with Shock; Bilateral Pneumonia (Possible aspiration); History of ALS on Trilogy; PUI-COVID; Acute toxic metabolic encephalopathy Seen and examined at bedside; 24hour events reviewed; nursing and respiratory care staff consulted; no adverse overnight events reported to me; resting in bed; remains on MVS; on PSV with p-supp at 8 cm H2O; no new issues otherwise except intermittent agitation / anxiety especially when anyone comes in the room Objective Vital Signs - 12hr 04/02/20 04/02/20 04/02/20 00:30 00:46 01:00 Temperature Pulse Rate 111 H 108 H 110 H Pulse Rate [ From Monitor] Respiratory 20 14 17 Rate Blood Pressure 142/96 142/96 133/92 O2 Sat by Pulse 92 96 92 Oximetry O2 Sat by Pulse Oximetry [ Assessment] 04/02/20 04/02/20 04/02/20 01:16 01:30 01:46 Temperature Pulse Rate 114 H 113 H 112 H Pulse Rate [ From Monitor] Respiratory 12 19 20 Rate Blood Pressure 133/92 138/92 138/92 O2 Sat by Pulse 97 96 97 Oximetry O2 Sat by Pulse Oximetry [ Assessment] 04/02/20 04/02/20 04/02/20 02:00 02:16 02:30 Temperature Pulse Rate 113 H 111 H 114 H Pulse Rate [ From Monitor] Respiratory 15 14 17 Rate Blood Pressure 138/93 138/93 137/94 O2 Sat by Pulse 94 97 97 Oximetry O2 Sat by Pulse Oximetry [ Assessment] 04/02/20 04/02/20 04/02/20 02:46 03:00 03:16 Temperature Pulse Rate 111 H 113 H 111 H Pulse Rate [ From Monitor] Respiratory 16 21 18 Rate Blood Pressure 137/94 142/97 142/97 O2 Sat by Pulse 96 95 95 Oximetry O2 Sat by Pulse Oximetry [ Assessment] 04/02/20 04/02/20 04/02/20 03:21 03:30 03:46 Temperature 98.4 F Pulse Rate 109 H 113 H Pulse Rate [ From Monitor] Respiratory 17 16 Rate Blood Pressure 132/90 132/90 O2 Sat by Pulse 95 95 Oximetry O2 Sat by Pulse Oximetry [ Assessment] 04/02/20 04/02/20 04/02/20 03:48 03:52 04:00 Temperature Pulse Rate 112 H 106 H Pulse Rate [ 102 H From Monitor] Respiratory 15 Rate Blood Pressure 132/90 132/89 O2 Sat by Pulse 97 94 Oximetry O2 Sat by Pulse 97 Oximetry [ Assessment] 04/02/20 04/02/20 04/02/20 04:16 04:30 04:46 Temperature Pulse Rate 101 H 102 H 102 H Pulse Rate [ From Monitor] Respiratory 14 15 16 Rate Blood Pressure 132/89 131/89 131/89 O2 Sat by Pulse 96 92 98 Oximetry O2 Sat by Pulse Oximetry [ Assessment] 04/02/20 04/02/20 04/02/20 05:00 05:16 05:30 Temperature Pulse Rate 105 H 89 107 H Pulse Rate [ From Monitor] Respiratory 16 15 17 Rate Blood Pressure 134/86 134/86 128/86 O2 Sat by Pulse 96 91 Oximetry O2 Sat by Pulse Oximetry [ Assessment] 04/02/20 04/02/20 04/02/20 05:46 06:00 06:16 Temperature Pulse Rate 99 H 106 H 105 H Pulse Rate [ From Monitor] Respiratory 14 18 16 Rate Blood Pressure 128/86 128/86 128/86 O2 Sat by Pulse 97 94 97 Oximetry O2 Sat by Pulse Oximetry [ Assessment] 04/02/20 04/02/20 04/02/20 06:30 06:46 07:00 Temperature Pulse Rate 109 H 103 H 111 H Pulse Rate [ From Monitor] Respiratory 18 14 22 Rate Blood Pressure 123/84 123/84 135/86 O2 Sat by Pulse 95 98 96 Oximetry O2 Sat by Pulse Oximetry [ Assessment] 04/02/20 04/02/20 04/02/20 07:16 07:30 07:46 Temperature Pulse Rate 104 H 95 H 101 H Pulse Rate [ From Monitor] Respiratory 15 14 14 Rate Blood Pressure 135/86 127/84 127/84 O2 Sat by Pulse 97 94 98 Oximetry O2 Sat by Pulse Oximetry [ Assessment] 04/02/20 04/02/20 04/02/20 08:00 08:13 08:16 Temperature 99 F Pulse Rate 107 H 112 H 113 H Pulse Rate [ 102 H From Monitor] Respiratory 16 32 H 28 H Rate Blood Pressure 127/86 127/86 127/86 O2 Sat by Pulse 94 97 98 Oximetry O2 Sat by Pulse Oximetry [ Assessment] 04/02/20 04/02/20 04/02/20 08:30 08:46 09:00 Temperature Pulse Rate 104 H 105 H 109 H Pulse Rate [ From Monitor] Respiratory 22 33 H 31 H Rate Blood Pressure 141/89 141/89 145/100 O2 Sat by Pulse 96 98 94 Oximetry O2 Sat by Pulse Oximetry [ Assessment] 04/02/20 04/02/20 04/02/20 09:01 09:16 09:30 Temperature Pulse Rate 108 H 100 H 90 Pulse Rate [ From Monitor] Respiratory 31 H 30 H Rate Blood Pressure 145/100 145/100 141/91 O2 Sat by Pulse 98 90 Oximetry O2 Sat by Pulse Oximetry [ Assessment] 04/02/20 04/02/20 04/02/20 09:46 10:00 10:16 Temperature Pulse Rate 90 94 H 87 Pulse Rate [ From Monitor] Respiratory 32 H 36 H 31 H Rate Blood Pressure 141/91 143/97 143/97 O2 Sat by Pulse 96 94 97 Oximetry O2 Sat by Pulse Oximetry [ Assessment] 04/02/20 04/02/20 04/02/20 10:30 10:46 11:00 Temperature Pulse Rate 91 H 97 H 96 H Pulse Rate [ From Monitor] Respiratory 18 33 H 28 H Rate Blood Pressure 144/92 144/92 143/93 O2 Sat by Pulse 96 98 96 Oximetry O2 Sat by Pulse Oximetry [ Assessment] 04/02/20 04/02/20 04/02/20 11:16 11:30 11:45 Temperature Pulse Rate 94 H 100 H 97 H Pulse Rate [ 96 H From Monitor] Respiratory 32 H 31 H 12 Rate Blood Pressure 143/93 145/97 O2 Sat by Pulse 98 92 97 Oximetry O2 Sat by Pulse Oximetry [ Assessment] 04/02/20 04/02/20 11:51 11:58 Temperature Pulse Rate 101 H Pulse Rate [ From Monitor] Respiratory 29 H Rate Blood Pressure 145/97 O2 Sat by Pulse 98 Oximetry O2 Sat by Pulse 98 Oximetry [ Assessment] Constitutional: no acute distress, other (thin middle aged male with mildly increased respiratory effort at rest on MVS) Eyes: non-icteric ENT: oropharynx moist, other (S/P Tracheostomy) Neck: supple, no lymphadenopathy, no JVD Effort: mildly labored Ascultation: Bilateral: clear Percussion: Bilateral: not dull Cardiovascular: regular rate and rhythm, other (S1,S2, no murmurs) Gastrointestinal: normoactive bowel sounds, soft, non-tender, non-distended, other (+ distended but non tender suprapubis) Integumentary: normal, decubitus ulcer (sacral / gluteal) Extremities: no cyanosis, no edema, pulses normal, other (atrophic looking limbs) Neurologic: pupils equal and round, other (motor strength in extremities 1-2/5, awake, alert, mouths words to make needs known) Psychiatric: mood appropriate, affect normal CBC and BMP: 03/30/20 14:47 03/30/20 14:47 ABG, PT/INR, D-dimer: ABG ABG pH 7.371 (7.320-7.450) 03/08/20 12:34 POC ABG pCO2 63.1 mmHg (32.0-48.0) H 03/08/20 12:34 ABG pCO2 60.1 mm Hg 03/06/20 04:34 POC ABG pO2 90.5 mmHg (83-108) 03/08/20 12:34 ABG pO2 88.6 mm Hg (80.0-90.0) 03/06/20 04:34 POC ABG HCO3 35.7 03/08/20 12:34 ABG O2 Saturation 97.0 % (95.0-99.0) 03/06/20 04:34 PT/INR, D-dimer PT 15.6 Sec. (12.2-14.9) H 02/24/20 09:19 INR 1.21 (0.87-1.13) H 02/24/20 09:19 D-Dimer 1311.96 ng/mlDDU (0-234) H 02/24/20 09:19 Abnormal lab findings: Abnormal Labs 02/24/20 02/24/20 02/24/20 09:19 09:19 09:19 WBC 20.2 H RBC 5.05 H Hgb Hct MCV MCH RDW 15.3 H Plt Count Lymph % (Auto) Lymph # (Auto) [place] # (Auto) Seg Neutrophils % Seg Neuts % (Manual) 86.0 H Lymphocytes % (Manual) 1.0 L Monocytes % (Manual) Basophils % (Manual) Seg Neutrophils # Seg Neutrophils # Man 17.4 H Lymphocytes # (Manual) 0.2 L Monocytes # (Manual) Eosinophils # (Manual) Basophils # (Manual) PT 15.6 H INR 1.21 H D-Dimer 1311.96 H ABG pH POC ABG pCO2 POC ABG pO2 ABG pO2 ABG HCO3 ABG O2 Saturation ABG Base Excess ABG Hemoglobin ABG Oxyhemoglobin ABG Potassium ABG Glucose Oxyhemoglobin Carboxyhemoglobin Sodium 135 L Potassium 3.2 L Chloride 92.2 L Carbon Dioxide BUN 6 L Creatinine < 0.2 L Glucose 124 H POC Glucose Calcium Ferritin Total Bilirubin 2.30 H Alkaline Phosphatase 132 H Lactate Dehydrogenase Total Creatine Kinase CK-MB (CK-2) Rel Index Troponin T 0.080 H C-Reactive Protein Total Protein Albumin 3.6 L Prealbumin LDL Cholesterol Direct 41 L Arterial Blood Glucose Arterial Blood Ionized Calcium Urine WBC (Auto) 02/24/20 02/24/20 02/24/20 09:19 09:58 10:01 WBC RBC Hgb Hct MCV MCH RDW Plt Count Lymph % (Auto) Lymph # (Auto) [place] # (Auto) Seg Neutrophils % Seg Neuts % (Manual) Lymphocytes % (Manual) Monocytes % (Manual) Basophils % (Manual) Seg Neutrophils # Seg Neutrophils # Man Lymphocytes # (Manual) Monocytes # (Manual) Eosinophils # (Manual) Basophils # (Manual) PT INR D-Dimer ABG pH 7.176 L* POC ABG pCO2 POC ABG pO2 ABG pO2 91.2 H ABG HCO3 ABG O2 Saturation ABG Base Excess -4.6 L ABG Hemoglobin ABG Oxyhemoglobin ABG Potassium ABG Glucose Oxyhemoglobin 92.6 L Carboxyhemoglobin Sodium Potassium Chloride Carbon Dioxide BUN Creatinine Glucose POC Glucose Calcium Ferritin 1715.0 H Total Bilirubin Alkaline Phosphatase Lactate Dehydrogenase 303 H Total Creatine Kinase CK-MB (CK-2) Rel Index Troponin T C-Reactive Protein 26.10 H Total Protein Albumin Prealbumin LDL Cholesterol Direct Arterial Blood Glucose Arterial Blood Ionized Calcium Urine WBC (Auto) 02/24/20 02/24/20 02/24/20 11:52 13:45 19:35 WBC RBC Hgb Hct MCV MCH RDW Plt Count Lymph % (Auto) Lymph # (Auto) [place] # (Auto) Seg Neutrophils % Seg Neuts % (Manual) Lymphocytes % (Manual) Monocytes % (Manual) Basophils % (Manual) Seg Neutrophils # Seg Neutrophils # Man Lymphocytes # (Manual) Monocytes # (Manual) Eosinophils # (Manual) Basophils # (Manual) PT INR D-Dimer ABG pH 7.051 L* 7.300 L POC ABG pCO2 POC ABG pO2 ABG pO2 94.7 H 75.1 L ABG HCO3 18.0 L ABG O2 Saturation 93.5 L ABG Base Excess -6.8 L -7.8 L ABG Hemoglobin 13.2 L 11.9 L ABG Oxyhemoglobin ABG Potassium ABG Glucose Oxyhemoglobin 91.0 L 92.7 L Carboxyhemoglobin Sodium Potassium Chloride Carbon Dioxide BUN Creatinine Glucose POC Glucose Calcium Ferritin Total Bilirubin Alkaline Phosphatase Lactate Dehydrogenase Total Creatine Kinase CK-MB (CK-2) Rel Index Troponin T 0.034 H D C-Reactive Protein Total Protein Albumin Prealbumin LDL Cholesterol Direct Arterial Blood Glucose Arterial Blood Ionized Calcium Urine WBC (Auto) 02/25/20 02/25/20 02/25/20 04:00 04:00 12:26 WBC 22.9 H RBC Hgb Hct MCV 83 L MCH 27 L RDW Plt Count 468 H Lymph % (Auto) Lymph # (Auto) [place] # (Auto) Seg Neutrophils % Seg Neuts % (Manual) 89.0 H Lymphocytes % (Manual) 7.0 L Monocytes % (Manual) Basophils % (Manual) Seg Neutrophils # Seg Neutrophils # Man 20.4 H Lymphocytes # (Manual) Monocytes # (Manual) Eosinophils # (Manual) Basophils # (Manual) PT INR D-Dimer ABG pH POC ABG pCO2 POC ABG pO2 ABG pO2 ABG HCO3 ABG O2 Saturation ABG Base Excess ABG Hemoglobin ABG Oxyhemoglobin ABG Potassium 2.6 L ABG Glucose 142 H Oxyhemoglobin Carboxyhemoglobin Sodium Potassium 3.2 L Chloride Carbon Dioxide 18 L BUN Creatinine 0.2 L Glucose 114 H POC Glucose Calcium Ferritin Total Bilirubin Alkaline Phosphatase Lactate Dehydrogenase Total Creatine Kinase CK-MB (CK-2) Rel Index Troponin T C-Reactive Protein Total Protein Albumin 3.5 L Prealbumin LDL Cholesterol Direct Arterial Blood Glucose 142 H Arterial Blood Ionized Calcium Urine WBC (Auto) 02/26/20 02/26/20 02/26/20 15:58 17:00 23:43 WBC RBC Hgb Hct MCV MCH RDW Plt Count Lymph % (Auto) Lymph # (Auto) [place] # (Auto) Seg Neutrophils % Seg Neuts % (Manual) Lymphocytes % (Manual) Monocytes % (Manual) Basophils % (Manual) Seg Neutrophils # Seg Neutrophils # Man Lymphocytes # (Manual) Monocytes # (Manual) Eosinophils # (Manual) Basophils # (Manual) PT INR D-Dimer ABG pH 7.502 H POC ABG pCO2 POC ABG pO2 213.6 H ABG pO2 ABG HCO3 ABG O2 Saturation ABG Base Excess ABG Hemoglobin ABG Oxyhemoglobin 99.2 H ABG Potassium 2.9 L ABG Glucose 160 H Oxyhemoglobin Carboxyhemoglobin 0.4 L Sodium Potassium Chloride Carbon Dioxide BUN Creatinine Glucose POC Glucose 189 H 120 H Calcium Ferritin Total Bilirubin Alkaline Phosphatase Lactate Dehydrogenase Total Creatine Kinase CK-MB (CK-2) Rel Index Troponin T C-Reactive Protein Total Protein Albumin Prealbumin LDL Cholesterol Direct Arterial Blood Glucose 160 H Arterial Blood Ionized Calcium 4.5 L Urine WBC (Auto) 02/27/20 02/27/20 02/27/20 05:00 07:04 17:45 WBC RBC Hgb Hct MCV MCH RDW Plt Count Lymph % (Auto) Lymph # (Auto) [place] # (Auto) Seg Neutrophils % Seg Neuts % (Manual) Lymphocytes % (Manual) Monocytes % (Manual) Basophils % (Manual) Seg Neutrophils # Seg Neutrophils # Man Lymphocytes # (Manual) Monocytes # (Manual) Eosinophils # (Manual) Basophils # (Manual) PT INR D-Dimer ABG pH 7.524 H POC ABG pCO2 POC ABG pO2 ABG pO2 ABG HCO3 ABG O2 Saturation ABG Base Excess ABG Hemoglobin ABG Oxyhemoglobin ABG Potassium 3.0 L ABG Glucose 143 H Oxyhemoglobin Carboxyhemoglobin Sodium Potassium Chloride Carbon Dioxide BUN Creatinine Glucose POC Glucose 154 H 175 H Calcium Ferritin Total Bilirubin Alkaline Phosphatase Lactate Dehydrogenase Total Creatine Kinase CK-MB (CK-2) Rel Index Troponin T C-Reactive Protein Total Protein Albumin Prealbumin LDL Cholesterol Direct Arterial Blood Glucose 143 H Arterial Blood Ionized Calcium Urine WBC (Auto) 02/27/20 02/28/20 02/28/20 Unknown 00:21 04:15 WBC 18.7 H RBC Hgb Hct MCV MCH RDW Plt Count Lymph % (Auto) 8.7 L Lymph # (Auto) [place] # (Auto) 1.2 H Seg Neutrophils % 84.6 H Seg Neuts % (Manual) Lymphocytes % (Manual) Monocytes % (Manual) Basophils % (Manual) Seg Neutrophils # 15.9 H Seg Neutrophils # Man Lymphocytes # (Manual) Monocytes # (Manual) Eosinophils # (Manual) Basophils # (Manual) PT INR D-Dimer ABG pH POC ABG pCO2 POC ABG pO2 ABG pO2 ABG HCO3 ABG O2 Saturation ABG Base Excess ABG Hemoglobin ABG Oxyhemoglobin ABG Potassium ABG Glucose Oxyhemoglobin Carboxyhemoglobin Sodium Potassium 2.9 L* Chloride Carbon Dioxide 33 H D BUN Creatinine < 0.2 L Glucose 157 H POC Glucose 134 H Calcium Ferritin Total Bilirubin Alkaline Phosphatase Lactate Dehydrogenase Total Creatine Kinase CK-MB (CK-2) Rel Index Troponin T C-Reactive Protein Total Protein Albumin Prealbumin LDL Cholesterol Direct Arterial Blood Glucose Arterial Blood Ionized Calcium Urine WBC (Auto) 02/28/20 02/28/20 02/28/20 04:15 05:16 05:39 WBC RBC Hgb Hct MCV MCH RDW Plt Count Lymph % (Auto) Lymph # (Auto) [place] # (Auto) Seg Neutrophils % Seg Neuts % (Manual) Lymphocytes % (Manual) Monocytes % (Manual) Basophils % (Manual) Seg Neutrophils # Seg Neutrophils # Man Lymphocytes # (Manual) Monocytes # (Manual) Eosinophils # (Manual) Basophils # (Manual) PT INR D-Dimer ABG pH POC ABG pCO2 POC ABG pO2 ABG pO2 142.9 H ABG HCO3 34.1 H ABG O2 Saturation ABG Base Excess 8.3 H ABG Hemoglobin ABG Oxyhemoglobin ABG Potassium ABG Glucose Oxyhemoglobin Carboxyhemoglobin Sodium 151 H Potassium Chloride Carbon Dioxide 32 H BUN Creatinine 0.2 L Glucose 167 H POC Glucose 138 H Calcium Ferritin Total Bilirubin Alkaline Phosphatase Lactate Dehydrogenase Total Creatine Kinase CK-MB (CK-2) Rel Index Troponin T C-Reactive Protein Total Protein Albumin Prealbumin LDL Cholesterol Direct Arterial Blood Glucose Arterial Blood Ionized Calcium Urine WBC (Auto) 02/28/20 02/28/20 02/28/20 11:05 11:33 12:54 WBC RBC Hgb Hct MCV MCH RDW Plt Count Lymph % (Auto) Lymph # (Auto) [place] # (Auto) Seg Neutrophils % Seg Neuts % (Manual) Lymphocytes % (Manual) Monocytes % (Manual) Basophils % (Manual) Seg Neutrophils # Seg Neutrophils # Man Lymphocytes # (Manual) Monocytes # (Manual) Eosinophils # (Manual) Basophils # (Manual) PT INR D-Dimer ABG pH POC ABG pCO2 POC ABG pO2 ABG pO2 ABG HCO3 ABG O2 Saturation ABG Base Excess ABG Hemoglobin ABG Oxyhemoglobin ABG Potassium ABG Glucose Oxyhemoglobin Carboxyhemoglobin Sodium Potassium Chloride Carbon Dioxide BUN Creatinine Glucose POC Glucose 160 H Calcium Ferritin Total Bilirubin Alkaline Phosphatase Lactate Dehydrogenase Total Creatine Kinase CK-MB (CK-2) Rel Index Troponin T C-Reactive Protein 4.70 H Total Protein Albumin Prealbumin 0.090 L LDL Cholesterol Direct Arterial Blood Glucose Arterial Blood Ionized Calcium Urine WBC (Auto) 02/28/20 02/29/20 02/29/20 17:34 00:44 04:05 WBC 19.6 H RBC Hgb Hct MCV MCH 27 L RDW 15.4 H Plt Count Lymph % (Auto) Lymph # (Auto) [place] # (Auto) Seg Neutrophils % Seg Neuts % (Manual) 86.0 H Lymphocytes % (Manual) 7.0 L Monocytes % (Manual) Basophils % (Manual) Seg Neutrophils # Seg Neutrophils # Man 16.9 H Lymphocytes # (Manual) Monocytes # (Manual) 1.2 H Eosinophils # (Manual) Basophils # (Manual) PT INR D-Dimer ABG pH POC ABG pCO2 POC ABG pO2 ABG pO2 ABG HCO3 ABG O2 Saturation ABG Base Excess ABG Hemoglobin ABG Oxyhemoglobin ABG Potassium ABG Glucose Oxyhemoglobin Carboxyhemoglobin Sodium Potassium Chloride Carbon Dioxide BUN Creatinine Glucose POC Glucose 136 H 156 H Calcium Ferritin Total Bilirubin Alkaline Phosphatase Lactate Dehydrogenase Total Creatine Kinase CK-MB (CK-2) Rel Index Troponin T C-Reactive Protein Total Protein Albumin Prealbumin LDL Cholesterol Direct Arterial Blood Glucose Arterial Blood Ionized Calcium Urine WBC (Auto) 02/29/20 02/29/20 02/29/20 04:05 05:14 05:33 WBC RBC Hgb Hct MCV MCH RDW Plt Count Lymph % (Auto) Lymph # (Auto) [place] # (Auto) Seg Neutrophils % Seg Neuts % (Manual) Lymphocytes % (Manual) Monocytes % (Manual) Basophils % (Manual) Seg Neutrophils # Seg Neutrophils # Man Lymphocytes # (Manual) Monocytes # (Manual) Eosinophils # (Manual) Basophils # (Manual) PT INR D-Dimer ABG pH POC ABG pCO2 54.3 H POC ABG pO2 124.8 H ABG pO2 ABG HCO3 ABG O2 Saturation ABG Base Excess ABG Hemoglobin ABG Oxyhemoglobin ABG Potassium ABG Glucose 185 H Oxyhemoglobin Carboxyhemoglobin Sodium 148 H Potassium Chloride Carbon Dioxide 33 H BUN Creatinine < 0.2 L Glucose 173 H POC Glucose 152 H Calcium Ferritin Total Bilirubin Alkaline Phosphatase Lactate Dehydrogenase Total Creatine Kinase CK-MB (CK-2) Rel Index Troponin T C-Reactive Protein Total Protein Albumin Prealbumin LDL Cholesterol Direct Arterial Blood Glucose 185 H Arterial Blood Ionized Calcium Urine WBC (Auto) 03/01/20 03/01/20 03/01/20 00:00 03:45 04:33 WBC 23.1 H RBC Hgb Hct MCV MCH 27 L RDW 15.3 H Plt Count Lymph % (Auto) Lymph # (Auto) [place] # (Auto) Seg Neutrophils % Seg Neuts % (Manual) 92.0 H Lymphocytes % (Manual) 6.0 L Monocytes % (Manual) Basophils % (Manual) Seg Neutrophils # Seg Neutrophils # Man 21.3 H Lymphocytes # (Manual) Monocytes # (Manual) Eosinophils # (Manual) 0.5 H Basophils # (Manual) PT INR D-Dimer ABG pH 7.492 H POC ABG pCO2 POC ABG pO2 ABG pO2 157.1 H ABG HCO3 32.3 H ABG O2 Saturation ABG Base Excess 8.1 H ABG Hemoglobin 13.2 L ABG Oxyhemoglobin ABG Potassium ABG Glucose Oxyhemoglobin Carboxyhemoglobin Sodium Potassium Chloride Carbon Dioxide BUN Creatinine Glucose POC Glucose 109 H Calcium Ferritin Total Bilirubin Alkaline Phosphatase Lactate Dehydrogenase Total Creatine Kinase CK-MB (CK-2) Rel Index Troponin T C-Reactive Protein Total Protein Albumin Prealbumin LDL Cholesterol Direct Arterial Blood Glucose Arterial Blood Ionized Calcium Urine WBC (Auto) 03/01/20 03/01/20 03/01/20 04:33 05:29 12:32 WBC RBC Hgb Hct MCV MCH RDW Plt Count Lymph % (Auto) Lymph # (Auto) [place] # (Auto) Seg Neutrophils % Seg Neuts % (Manual) Lymphocytes % (Manual) Monocytes % (Manual) Basophils % (Manual) Seg Neutrophils # Seg Neutrophils # Man Lymphocytes # (Manual) Monocytes # (Manual) Eosinophils # (Manual) Basophils # (Manual) PT INR D-Dimer ABG pH POC ABG pCO2 POC ABG pO2 ABG pO2 ABG HCO3 ABG O2 Saturation ABG Base Excess ABG Hemoglobin ABG Oxyhemoglobin ABG Potassium ABG Glucose Oxyhemoglobin Carboxyhemoglobin Sodium 146 H Potassium Chloride Carbon Dioxide 32 H BUN Creatinine < 0.2 L Glucose 120 H POC Glucose 120 H 128 H Calcium Ferritin Total Bilirubin Alkaline Phosphatase Lactate Dehydrogenase Total Creatine Kinase CK-MB (CK-2) Rel Index Troponin T C-Reactive Protein Total Protein Albumin Prealbumin LDL Cholesterol Direct Arterial Blood Glucose Arterial Blood Ionized Calcium Urine WBC (Auto) 03/01/20 03/01/20 03/02/20 17:38 23:46 06:13 WBC RBC Hgb Hct MCV MCH RDW Plt Count Lymph % (Auto) Lymph # (Auto) [place] # (Auto) Seg Neutrophils % Seg Neuts % (Manual) Lymphocytes % (Manual) Monocytes % (Manual) Basophils % (Manual) Seg Neutrophils # Seg Neutrophils # Man Lymphocytes # (Manual) Monocytes # (Manual) Eosinophils # (Manual) Basophils # (Manual) PT INR D-Dimer ABG pH POC ABG pCO2 POC ABG pO2 ABG pO2 ABG HCO3 ABG O2 Saturation ABG Base Excess ABG Hemoglobin ABG Oxyhemoglobin ABG Potassium ABG Glucose Oxyhemoglobin Carboxyhemoglobin Sodium Potassium Chloride Carbon Dioxide BUN Creatinine Glucose POC Glucose 114 H 121 H 120 H Calcium Ferritin Total Bilirubin Alkaline Phosphatase Lactate Dehydrogenase Total Creatine Kinase CK-MB (CK-2) Rel Index Troponin T C-Reactive Protein Total Protein Albumin Prealbumin LDL Cholesterol Direct Arterial Blood Glucose Arterial Blood Ionized Calcium Urine WBC (Auto) 03/02/20 03/02/20 03/03/20 09:47 09:47 10:21 WBC 23.6 H RBC Hgb Hct MCV MCH RDW 15.3 H Plt Count 494 H Lymph % (Auto) Lymph # (Auto) [place] # (Auto) Seg Neutrophils % Seg Neuts % (Manual) 85.0 H Lymphocytes % (Manual) 6.0 L Monocytes % (Manual) Basophils % (Manual) Seg Neutrophils # Seg Neutrophils # Man 20.1 H Lymphocytes # (Manual) Monocytes # (Manual) 1.7 H Eosinophils # (Manual) Basophils # (Manual) PT INR D-Dimer ABG pH POC ABG pCO2 POC ABG pO2 ABG pO2 ABG HCO3 ABG O2 Saturation ABG Base Excess ABG Hemoglobin ABG Oxyhemoglobin ABG Potassium 3.3 L ABG Glucose 158 H Oxyhemoglobin Carboxyhemoglobin Sodium Potassium Chloride Carbon Dioxide BUN Creatinine < 0.2 L Glucose 177 H POC Glucose Calcium Ferritin Total Bilirubin Alkaline Phosphatase Lactate Dehydrogenase Total Creatine Kinase CK-MB (CK-2) Rel Index Troponin T C-Reactive Protein Total Protein Albumin Prealbumin LDL Cholesterol Direct Arterial Blood Glucose 158 H Arterial Blood Ionized Calcium Urine WBC (Auto) 03/03/20 03/04/20 03/04/20 21:30 00:00 12:23 WBC RBC Hgb Hct MCV MCH RDW Plt Count Lymph % (Auto) Lymph # (Auto) [place] # (Auto) Seg Neutrophils % Seg Neuts % (Manual) Lymphocytes % (Manual) Monocytes % (Manual) Basophils % (Manual) Seg Neutrophils # Seg Neutrophils # Man Lymphocytes # (Manual) Monocytes # (Manual) Eosinophils # (Manual) Basophils # (Manual) PT INR D-Dimer ABG pH 7.328 L POC ABG pCO2 POC ABG pO2 ABG pO2 68.4 L ABG HCO3 35.0 H ABG O2 Saturation 93.9 L ABG Base Excess 6.8 H ABG Hemoglobin 12.7 L ABG Oxyhemoglobin ABG Potassium ABG Glucose Oxyhemoglobin 91.9 L Carboxyhemoglobin Sodium Potassium Chloride Carbon Dioxide BUN Creatinine Glucose POC Glucose 187 H 163 H Calcium Ferritin Total Bilirubin Alkaline Phosphatase Lactate Dehydrogenase Total Creatine Kinase CK-MB (CK-2) Rel Index Troponin T C-Reactive Protein Total Protein Albumin Prealbumin LDL Cholesterol Direct Arterial Blood Glucose Arterial Blood Ionized Calcium Urine WBC (Auto) 03/04/20 03/04/20 03/05/20 18:15 21:30 06:02 WBC RBC Hgb Hct MCV MCH RDW Plt Count Lymph % (Auto) Lymph # (Auto) [place] # (Auto) Seg Neutrophils % Seg Neuts % (Manual) Lymphocytes % (Manual) Monocytes % (Manual) Basophils % (Manual) Seg Neutrophils # Seg Neutrophils # Man Lymphocytes # (Manual) Monocytes # (Manual) Eosinophils # (Manual) Basophils # (Manual) PT INR D-Dimer ABG pH 7.297 L POC ABG pCO2 POC ABG pO2 ABG pO2 ABG HCO3 41.0 H ABG O2 Saturation ABG Base Excess 11.0 H ABG Hemoglobin 13.1 L ABG Oxyhemoglobin ABG Potassium ABG Glucose Oxyhemoglobin 94.5 L Carboxyhemoglobin Sodium Potassium Chloride Carbon Dioxide BUN Creatinine Glucose POC Glucose 192 H 127 H Calcium Ferritin Total Bilirubin Alkaline Phosphatase Lactate Dehydrogenase Total Creatine Kinase CK-MB (CK-2) Rel Index Troponin T C-Reactive Protein Total Protein Albumin Prealbumin LDL Cholesterol Direct Arterial Blood Glucose Arterial Blood Ionized Calcium Urine WBC (Auto) 03/05/20 03/05/20 03/06/20 12:09 16:42 00:24 WBC RBC Hgb Hct MCV MCH RDW Plt Count Lymph % (Auto) Lymph # (Auto) [place] # (Auto) Seg Neutrophils % Seg Neuts % (Manual) Lymphocytes % (Manual) Monocytes % (Manual) Basophils % (Manual) Seg Neutrophils # Seg Neutrophils # Man Lymphocytes # (Manual) Monocytes # (Manual) Eosinophils # (Manual) Basophils # (Manual) PT INR D-Dimer ABG pH POC ABG pCO2 POC ABG pO2 ABG pO2 ABG HCO3 ABG O2 Saturation ABG Base Excess ABG Hemoglobin ABG Oxyhemoglobin ABG Potassium ABG Glucose Oxyhemoglobin Carboxyhemoglobin Sodium Potassium Chloride Carbon Dioxide BUN Creatinine Glucose POC Glucose 147 H 114 H 134 H Calcium Ferritin Total Bilirubin Alkaline Phosphatase Lactate Dehydrogenase Total Creatine Kinase CK-MB (CK-2) Rel Index Troponin T C-Reactive Protein Total Protein Albumin Prealbumin LDL Cholesterol Direct Arterial Blood Glucose Arterial Blood Ionized Calcium Urine WBC (Auto) 03/06/20 03/06/20 03/06/20 04:34 05:53 06:08 WBC 25.4 H RBC Hgb 10.5 L Hct 32.7 L MCV MCH 27 L RDW 15.3 H Plt Count 634 H Lymph % (Auto) Lymph # (Auto) [place] # (Auto) Seg Neutrophils % Seg Neuts % (Manual) 88.0 H Lymphocytes % (Manual) 2.0 L Monocytes % (Manual) 8.0 H Basophils % (Manual) Seg Neutrophils # Seg Neutrophils # Man 22.4 H Lymphocytes # (Manual) 0.5 L Monocytes # (Manual) 2.0 H Eosinophils # (Manual) Basophils # (Manual) PT INR D-Dimer ABG pH POC ABG pCO2 POC ABG pO2 ABG pO2 ABG HCO3 37.9 H ABG O2 Saturation ABG Base Excess 11.4 H ABG Hemoglobin 10.6 L ABG Oxyhemoglobin ABG Potassium ABG Glucose Oxyhemoglobin 94.7 L Carboxyhemoglobin Sodium Potassium Chloride Carbon Dioxide BUN Creatinine Glucose POC Glucose 135 H Calcium Ferritin Total Bilirubin Alkaline Phosphatase Lactate Dehydrogenase Total Creatine Kinase CK-MB (CK-2) Rel Index Troponin T C-Reactive Protein Total Protein Albumin Prealbumin LDL Cholesterol Direct Arterial Blood Glucose Arterial Blood Ionized Calcium Urine WBC (Auto) 03/06/20 03/06/20 03/06/20 06:08 12:19 19:10 WBC RBC Hgb Hct MCV MCH RDW Plt Count Lymph % (Auto) Lymph # (Auto) [place] # (Auto) Seg Neutrophils % Seg Neuts % (Manual) Lymphocytes % (Manual) Monocytes % (Manual) Basophils % (Manual) Seg Neutrophils # Seg Neutrophils # Man Lymphocytes # (Manual) Monocytes # (Manual) Eosinophils # (Manual) Basophils # (Manual) PT INR D-Dimer ABG pH POC ABG pCO2 POC ABG pO2 ABG pO2 ABG HCO3 ABG O2 Saturation ABG Base Excess ABG Hemoglobin ABG Oxyhemoglobin ABG Potassium ABG Glucose Oxyhemoglobin Carboxyhemoglobin Sodium 150 H D Potassium Chloride Carbon Dioxide 39 H D BUN 23 H Creatinine < 0.2 L Glucose 144 H POC Glucose 169 H 152 H Calcium Ferritin Total Bilirubin Alkaline Phosphatase Lactate Dehydrogenase Total Creatine Kinase CK-MB (CK-2) Rel Index Troponin T C-Reactive Protein Total Protein Albumin 3.3 L Prealbumin LDL Cholesterol Direct Arterial Blood Glucose Arterial Blood Ionized Calcium Urine WBC (Auto) 03/06/20 03/07/20 03/07/20 23:58 04:25 04:25 WBC 22.1 H RBC Hgb 10.9 L Hct 32.9 L MCV MCH RDW 15.5 H Plt Count 739 H Lymph % (Auto) 7.8 L Lymph # (Auto) [place] # (Auto) 1.3 H Seg Neutrophils % 85.5 H Seg Neuts % (Manual) Lymphocytes % (Manual) Monocytes % (Manual) Basophils % (Manual) Seg Neutrophils # 18.9 H Seg Neutrophils # Man Lymphocytes # (Manual) Monocytes # (Manual) Eosinophils # (Manual) Basophils # (Manual) PT INR D-Dimer ABG pH POC ABG pCO2 POC ABG pO2 ABG pO2 ABG HCO3 ABG O2 Saturation ABG Base Excess ABG Hemoglobin ABG Oxyhemoglobin ABG Potassium ABG Glucose Oxyhemoglobin Carboxyhemoglobin Sodium 146 H Potassium Chloride Carbon Dioxide 37 H BUN Creatinine < 0.2 L Glucose 118 H POC Glucose 111 H Calcium Ferritin Total Bilirubin Alkaline Phosphatase Lactate Dehydrogenase Total Creatine Kinase CK-MB (CK-2) Rel Index Troponin T C-Reactive Protein Total Protein Albumin 3.7 L Prealbumin LDL Cholesterol Direct Arterial Blood Glucose Arterial Blood Ionized Calcium Urine WBC (Auto) 03/07/20 03/07/20 03/07/20 05:20 17:45 23:32 WBC RBC Hgb Hct MCV MCH RDW Plt Count Lymph % (Auto) Lymph # (Auto) [place] # (Auto) Seg Neutrophils % Seg Neuts % (Manual) Lymphocytes % (Manual) Monocytes % (Manual) Basophils % (Manual) Seg Neutrophils # Seg Neutrophils # Man Lymphocytes # (Manual) Monocytes # (Manual) Eosinophils # (Manual) Basophils # (Manual) PT INR D-Dimer ABG pH POC ABG pCO2 POC ABG pO2 ABG pO2 ABG HCO3 ABG O2 Saturation ABG Base Excess ABG Hemoglobin ABG Oxyhemoglobin ABG Potassium ABG Glucose Oxyhemoglobin Carboxyhemoglobin Sodium Potassium Chloride Carbon Dioxide BUN Creatinine Glucose POC Glucose 113 H 124 H 210 H Calcium Ferritin Total Bilirubin Alkaline Phosphatase Lactate Dehydrogenase Total Creatine Kinase CK-MB (CK-2) Rel Index Troponin T C-Reactive Protein Total Protein Albumin Prealbumin LDL Cholesterol Direct Arterial Blood Glucose Arterial Blood Ionized Calcium Urine WBC (Auto) 03/08/20 03/08/20 03/08/20 05:35 06:43 06:43 WBC 28.9 H RBC 3.53 L Hgb 9.7 L Hct 30.3 L MCV MCH RDW 15.6 H Plt Count 578 H Lymph % (Auto) Lymph # (Auto) [place] # (Auto) Seg Neutrophils % Seg Neuts % (Manual) 93.0 H Lymphocytes % (Manual) 4.0 L Monocytes % (Manual) Basophils % (Manual) Seg Neutrophils # Seg Neutrophils # Man 26.9 H Lymphocytes # (Manual) Monocytes # (Manual) Eosinophils # (Manual) Basophils # (Manual) PT INR D-Dimer ABG pH POC ABG pCO2 POC ABG pO2 ABG pO2 ABG HCO3 ABG O2 Saturation ABG Base Excess ABG Hemoglobin ABG Oxyhemoglobin ABG Potassium ABG Glucose Oxyhemoglobin Carboxyhemoglobin Sodium 146 H Potassium Chloride Carbon Dioxide 35 H BUN 34 H Creatinine 0.3 L D Glucose 125 H POC Glucose 147 H Calcium Ferritin Total Bilirubin Alkaline Phosphatase Lactate Dehydrogenase Total Creatine Kinase CK-MB (CK-2) Rel Index Troponin T C-Reactive Protein Total Protein 5.9 L Albumin 3.2 L Prealbumin LDL Cholesterol Direct Arterial Blood Glucose Arterial Blood Ionized Calcium Urine WBC (Auto) 03/08/20 03/08/20 03/08/20 08:57 11:14 12:34 WBC RBC Hgb Hct MCV MCH RDW Plt Count Lymph % (Auto) Lymph # (Auto) [place] # (Auto) Seg Neutrophils % Seg Neuts % (Manual) Lymphocytes % (Manual) Monocytes % (Manual) Basophils % (Manual) Seg Neutrophils # Seg Neutrophils # Man Lymphocytes # (Manual) Monocytes # (Manual) Eosinophils # (Manual) Basophils # (Manual) PT INR D-Dimer ABG pH POC ABG pCO2 63.1 H POC ABG pO2 ABG pO2 ABG HCO3 ABG O2 Saturation ABG Base Excess ABG Hemoglobin 10.9 L ABG Oxyhemoglobin ABG Potassium ABG Glucose 176 H Oxyhemoglobin Carboxyhemoglobin Sodium Potassium Chloride Carbon Dioxide BUN Creatinine Glucose POC Glucose 171 H Calcium Ferritin Total Bilirubin Alkaline Phosphatase Lactate Dehydrogenase Total Creatine Kinase CK-MB (CK-2) Rel Index Troponin T C-Reactive Protein Total Protein Albumin Prealbumin LDL Cholesterol Direct Arterial Blood Glucose 176 H Arterial Blood Ionized Calcium 4.5 L Urine WBC (Auto) 10.0 H 03/08/20 03/08/20 03/09/20 18:02 23:43 05:49 WBC RBC Hgb Hct MCV MCH RDW Plt Count Lymph % (Auto) Lymph # (Auto) [place] # (Auto) Seg Neutrophils % Seg Neuts % (Manual) Lymphocytes % (Manual) Monocytes % (Manual) Basophils % (Manual) Seg Neutrophils # Seg Neutrophils # Man Lymphocytes # (Manual) Monocytes # (Manual) Eosinophils # (Manual) Basophils # (Manual) PT INR D-Dimer ABG pH POC ABG pCO2 POC ABG pO2 ABG pO2 ABG HCO3 ABG O2 Saturation ABG Base Excess ABG Hemoglobin ABG Oxyhemoglobin ABG Potassium ABG Glucose Oxyhemoglobin Carboxyhemoglobin Sodium Potassium Chloride Carbon Dioxide BUN Creatinine Glucose POC Glucose 157 H 134 H 163 H Calcium Ferritin Total Bilirubin Alkaline Phosphatase Lactate Dehydrogenase Total Creatine Kinase CK-MB (CK-2) Rel Index Troponin T C-Reactive Protein Total Protein Albumin Prealbumin LDL Cholesterol Direct Arterial Blood Glucose Arterial Blood Ionized Calcium Urine WBC (Auto) 03/09/20 03/09/20 03/09/20 08:35 08:35 12:11 WBC 23.4 H RBC 3.36 L Hgb 9.3 L Hct 28.8 L MCV MCH RDW 15.9 H Plt Count 521 H Lymph % (Auto) Lymph # (Auto) [place] # (Auto) Seg Neutrophils % Seg Neuts % (Manual) 87.0 H Lymphocytes % (Manual) 4.0 L Monocytes % (Manual) 9.0 H Basophils % (Manual) Seg Neutrophils # Seg Neutrophils # Man 20.4 H Lymphocytes # (Manual) 0.9 L Monocytes # (Manual) 2.1 H Eosinophils # (Manual) Basophils # (Manual) PT INR D-Dimer ABG pH POC ABG pCO2 POC ABG pO2 ABG pO2 ABG HCO3 ABG O2 Saturation ABG Base Excess ABG Hemoglobin ABG Oxyhemoglobin ABG Potassium ABG Glucose Oxyhemoglobin Carboxyhemoglobin Sodium 147 H Potassium Chloride Carbon Dioxide 37 H BUN 63 H Creatinine Glucose 154 H POC Glucose 128 H Calcium Ferritin Total Bilirubin Alkaline Phosphatase Lactate Dehydrogenase Total Creatine Kinase CK-MB (CK-2) Rel Index Troponin T C-Reactive Protein Total Protein Albumin Prealbumin LDL Cholesterol Direct Arterial Blood Glucose Arterial Blood Ionized Calcium Urine WBC (Auto) 03/09/20 03/10/20 03/10/20 17:51 00:25 05:41 WBC RBC Hgb Hct MCV MCH RDW Plt Count Lymph % (Auto) Lymph # (Auto) [place] # (Auto) Seg Neutrophils % Seg Neuts % (Manual) Lymphocytes % (Manual) Monocytes % (Manual) Basophils % (Manual) Seg Neutrophils # Seg Neutrophils # Man Lymphocytes # (Manual) Monocytes # (Manual) Eosinophils # (Manual) Basophils # (Manual) PT INR D-Dimer ABG pH POC ABG pCO2 POC ABG pO2 ABG pO2 ABG HCO3 ABG O2 Saturation ABG Base Excess ABG Hemoglobin ABG Oxyhemoglobin ABG Potassium ABG Glucose Oxyhemoglobin Carboxyhemoglobin Sodium Potassium Chloride Carbon Dioxide BUN Creatinine Glucose POC Glucose 127 H 128 H 153 H Calcium Ferritin Total Bilirubin Alkaline Phosphatase Lactate Dehydrogenase Total Creatine Kinase CK-MB (CK-2) Rel Index Troponin T C-Reactive Protein Total Protein Albumin Prealbumin LDL Cholesterol Direct Arterial Blood Glucose Arterial Blood Ionized Calcium Urine WBC (Auto) 03/10/20 03/10/20 03/10/20 06:14 06:14 12:02 WBC 18.3 H RBC 3.45 L Hgb 9.5 L Hct 29.5 L MCV MCH RDW 16.1 H Plt Count 494 H Lymph % (Auto) Lymph # (Auto) [place] # (Auto) Seg Neutrophils % Seg Neuts % (Manual) 95.0 H Lymphocytes % (Manual) 1.0 L Monocytes % (Manual) Basophils % (Manual) Seg Neutrophils # Seg Neutrophils # Man 17.4 H Lymphocytes # (Manual) 0.2 L Monocytes # (Manual) Eosinophils # (Manual) Basophils # (Manual) PT INR D-Dimer ABG pH POC ABG pCO2 POC ABG pO2 ABG pO2 ABG HCO3 ABG O2 Saturation ABG Base Excess ABG Hemoglobin ABG Oxyhemoglobin ABG Potassium ABG Glucose Oxyhemoglobin Carboxyhemoglobin Sodium 149 H Potassium Chloride Carbon Dioxide 35 H BUN 34 H Creatinine 0.2 L D Glucose 177 H POC Glucose 151 H Calcium Ferritin Total Bilirubin Alkaline Phosphatase Lactate Dehydrogenase Total Creatine Kinase CK-MB (CK-2) Rel Index Troponin T C-Reactive Protein Total Protein Albumin Prealbumin LDL Cholesterol Direct Arterial Blood Glucose Arterial Blood Ionized Calcium Urine WBC (Auto) 03/10/20 03/10/20 03/11/20 17:41 23:53 05:02 WBC RBC Hgb Hct MCV MCH RDW Plt Count Lymph % (Auto) Lymph # (Auto) [place] # (Auto) Seg Neutrophils % Seg Neuts % (Manual) Lymphocytes % (Manual) Monocytes % (Manual) Basophils % (Manual) Seg Neutrophils # Seg Neutrophils # Man Lymphocytes # (Manual) Monocytes # (Manual) Eosinophils # (Manual) Basophils # (Manual) PT INR D-Dimer ABG pH POC ABG pCO2 POC ABG pO2 ABG pO2 ABG HCO3 ABG O2 Saturation ABG Base Excess ABG Hemoglobin ABG Oxyhemoglobin ABG Potassium ABG Glucose Oxyhemoglobin Carboxyhemoglobin Sodium Potassium Chloride Carbon Dioxide BUN Creatinine Glucose POC Glucose 168 H 142 H 146 H Calcium Ferritin Total Bilirubin Alkaline Phosphatase Lactate Dehydrogenase Total Creatine Kinase CK-MB (CK-2) Rel Index Troponin T C-Reactive Protein Total Protein Albumin Prealbumin LDL Cholesterol Direct Arterial Blood Glucose Arterial Blood Ionized Calcium Urine WBC (Auto) 03/11/20 03/11/20 03/11/20 11:30 14:01 14:01 WBC 19.7 H RBC 3.04 L Hgb 8.7 L Hct 25.8 L MCV MCH RDW 15.6 H Plt Count Lymph % (Auto) Lymph # (Auto) [place] # (Auto) Seg Neutrophils % Seg Neuts % (Manual) Lymphocytes % (Manual) Monocytes % (Manual) Basophils % (Manual) Seg Neutrophils # Seg Neutrophils # Man Lymphocytes # (Manual) Monocytes # (Manual) Eosinophils # (Manual) Basophils # (Manual) PT INR D-Dimer ABG pH POC ABG pCO2 POC ABG pO2 ABG pO2 ABG HCO3 ABG O2 Saturation ABG Base Excess ABG Hemoglobin ABG Oxyhemoglobin ABG Potassium ABG Glucose Oxyhemoglobin Carboxyhemoglobin Sodium 151 H Potassium Chloride Carbon Dioxide 37 H BUN Creatinine < 0.2 L Glucose 171 H POC Glucose 248 H Calcium Ferritin Total Bilirubin Alkaline Phosphatase Lactate Dehydrogenase Total Creatine Kinase CK-MB (CK-2) Rel Index Troponin T C-Reactive Protein Total Protein Albumin Prealbumin LDL Cholesterol Direct Arterial Blood Glucose Arterial Blood Ionized Calcium Urine WBC (Auto) 03/11/20 03/11/20 03/12/20 17:09 23:52 04:39 WBC 19.9 H RBC 3.16 L Hgb 8.9 L Hct 27.5 L MCV MCH RDW 15.7 H Plt Count Lymph % (Auto) 6.8 L Lymph # (Auto) [place] # (Auto) 1.2 H Seg Neutrophils % 86.0 H Seg Neuts % (Manual) Lymphocytes % (Manual) Monocytes % (Manual) Basophils % (Manual) Seg Neutrophils # 17.1 H Seg Neutrophils # Man Lymphocytes # (Manual) Monocytes # (Manual) Eosinophils # (Manual) Basophils # (Manual) PT INR D-Dimer ABG pH POC ABG pCO2 POC ABG pO2 ABG pO2 ABG HCO3 ABG O2 Saturation ABG Base Excess ABG Hemoglobin ABG Oxyhemoglobin ABG Potassium ABG Glucose Oxyhemoglobin Carboxyhemoglobin Sodium Potassium Chloride Carbon Dioxide BUN Creatinine Glucose POC Glucose 124 H 131 H Calcium Ferritin Total Bilirubin Alkaline Phosphatase Lactate Dehydrogenase Total Creatine Kinase CK-MB (CK-2) Rel Index Troponin T C-Reactive Protein Total Protein Albumin Prealbumin LDL Cholesterol Direct Arterial Blood Glucose Arterial Blood Ionized Calcium Urine WBC (Auto) 03/12/20 03/12/20 03/12/20 04:39 05:28 11:34 WBC RBC Hgb Hct MCV MCH RDW Plt Count Lymph % (Auto) Lymph # (Auto) [place] # (Auto) Seg Neutrophils % Seg Neuts % (Manual) Lymphocytes % (Manual) Monocytes % (Manual) Basophils % (Manual) Seg Neutrophils # Seg Neutrophils # Man Lymphocytes # (Manual) Monocytes # (Manual) Eosinophils # (Manual) Basophils # (Manual) PT INR D-Dimer ABG pH POC ABG pCO2 POC ABG pO2 ABG pO2 ABG HCO3 ABG O2 Saturation ABG Base Excess ABG Hemoglobin ABG Oxyhemoglobin ABG Potassium ABG Glucose Oxyhemoglobin Carboxyhemoglobin Sodium 147 H Potassium Chloride Carbon Dioxide 40 H BUN Creatinine < 0.2 L Glucose 175 H POC Glucose 167 H 144 H Calcium Ferritin Total Bilirubin Alkaline Phosphatase Lactate Dehydrogenase Total Creatine Kinase CK-MB (CK-2) Rel Index Troponin T C-Reactive Protein Total Protein Albumin Prealbumin LDL Cholesterol Direct Arterial Blood Glucose Arterial Blood Ionized Calcium Urine WBC (Auto) 03/12/20 03/12/20 03/13/20 17:32 23:57 05:57 WBC RBC Hgb Hct MCV MCH RDW Plt Count Lymph % (Auto) Lymph # (Auto) [place] # (Auto) Seg Neutrophils % Seg Neuts % (Manual) Lymphocytes % (Manual) Monocytes % (Manual) Basophils % (Manual) Seg Neutrophils # Seg Neutrophils # Man Lymphocytes # (Manual) Monocytes # (Manual) Eosinophils # (Manual) Basophils # (Manual) PT INR D-Dimer ABG pH POC ABG pCO2 POC ABG pO2 ABG pO2 ABG HCO3 ABG O2 Saturation ABG Base Excess ABG Hemoglobin ABG Oxyhemoglobin ABG Potassium ABG Glucose Oxyhemoglobin Carboxyhemoglobin Sodium Potassium Chloride Carbon Dioxide BUN Creatinine Glucose POC Glucose 141 H 137 H 161 H Calcium Ferritin Total Bilirubin Alkaline Phosphatase Lactate Dehydrogenase Total Creatine Kinase CK-MB (CK-2) Rel Index Troponin T C-Reactive Protein Total Protein Albumin Prealbumin LDL Cholesterol Direct Arterial Blood Glucose Arterial Blood Ionized Calcium Urine WBC (Auto) 03/13/20 03/13/20 03/13/20 12:28 14:14 18:39 WBC RBC Hgb Hct MCV MCH RDW Plt Count Lymph % (Auto) Lymph # (Auto) [place] # (Auto) Seg Neutrophils % Seg Neuts % (Manual) Lymphocytes % (Manual) Monocytes % (Manual) Basophils % (Manual) Seg Neutrophils # Seg Neutrophils # Man Lymphocytes # (Manual) Monocytes # (Manual) Eosinophils # (Manual) Basophils # (Manual) PT INR D-Dimer ABG pH POC ABG pCO2 POC ABG pO2 ABG pO2 ABG HCO3 ABG O2 Saturation ABG Base Excess ABG Hemoglobin ABG Oxyhemoglobin ABG Potassium ABG Glucose Oxyhemoglobin Carboxyhemoglobin Sodium Potassium Chloride Carbon Dioxide 39 H BUN Creatinine < 0.2 L Glucose 129 H POC Glucose 130 H 125 H Calcium Ferritin Total Bilirubin Alkaline Phosphatase Lactate Dehydrogenase Total Creatine Kinase CK-MB (CK-2) Rel Index Troponin T C-Reactive Protein Total Protein Albumin Prealbumin LDL Cholesterol Direct Arterial Blood Glucose Arterial Blood Ionized Calcium Urine WBC (Auto) 03/13/20 03/14/20 03/14/20 23:33 05:24 08:07 WBC 16.8 H RBC 2.81 L Hgb 7.9 L Hct 23.9 L MCV MCH RDW 15.9 H Plt Count Lymph % (Auto) Lymph # (Auto) [place] # (Auto) Seg Neutrophils % Seg Neuts % (Manual) 84.0 H Lymphocytes % (Manual) 10.0 L Monocytes % (Manual) Basophils % (Manual) Seg Neutrophils # Seg Neutrophils # Man 14.1 H Lymphocytes # (Manual) Monocytes # (Manual) Eosinophils # (Manual) Basophils # (Manual) PT INR D-Dimer ABG pH POC ABG pCO2 POC ABG pO2 ABG pO2 ABG HCO3 ABG O2 Saturation ABG Base Excess ABG Hemoglobin ABG Oxyhemoglobin ABG Potassium ABG Glucose Oxyhemoglobin Carboxyhemoglobin Sodium Potassium Chloride Carbon Dioxide BUN Creatinine Glucose POC Glucose 146 H 125 H Calcium Ferritin Total Bilirubin Alkaline Phosphatase Lactate Dehydrogenase Total Creatine Kinase CK-MB (CK-2) Rel Index Troponin T C-Reactive Protein Total Protein Albumin Prealbumin LDL Cholesterol Direct Arterial Blood Glucose Arterial Blood Ionized Calcium Urine WBC (Auto) 03/14/20 03/14/20 03/14/20 08:07 12:21 18:26 WBC RBC Hgb Hct MCV MCH RDW Plt Count Lymph % (Auto) Lymph # (Auto) [place] # (Auto) Seg Neutrophils % Seg Neuts % (Manual) Lymphocytes % (Manual) Monocytes % (Manual) Basophils % (Manual) Seg Neutrophils # Seg Neutrophils # Man Lymphocytes # (Manual) Monocytes # (Manual) Eosinophils # (Manual) Basophils # (Manual) PT INR D-Dimer ABG pH POC ABG pCO2 POC ABG pO2 ABG pO2 ABG HCO3 ABG O2 Saturation ABG Base Excess ABG Hemoglobin ABG Oxyhemoglobin ABG Potassium ABG Glucose Oxyhemoglobin Carboxyhemoglobin Sodium Potassium Chloride 97.0 L Carbon Dioxide 37 H BUN Creatinine < 0.2 L Glucose 129 H POC Glucose 109 H 142 H Calcium 8.3 L Ferritin Total Bilirubin Alkaline Phosphatase Lactate Dehydrogenase Total Creatine Kinase CK-MB (CK-2) Rel Index Troponin T C-Reactive Protein Total Protein Albumin Prealbumin LDL Cholesterol Direct Arterial Blood Glucose Arterial Blood Ionized Calcium Urine WBC (Auto) 03/14/20 03/15/20 03/15/20 23:57 05:46 08:06 WBC 19.7 H RBC 3.29 L Hgb 9.1 L Hct 28.0 L MCV MCH RDW 15.9 H Plt Count Lymph % (Auto) Lymph # (Auto) [place] # (Auto) Seg Neutrophils % Seg Neuts % (Manual) Lymphocytes % (Manual) Monocytes % (Manual) Basophils % (Manual) Seg Neutrophils # Seg Neutrophils # Man Lymphocytes # (Manual) Monocytes # (Manual) Eosinophils # (Manual) Basophils # (Manual) PT INR D-Dimer ABG pH POC ABG pCO2 POC ABG pO2 ABG pO2 ABG HCO3 ABG O2 Saturation ABG Base Excess ABG Hemoglobin ABG Oxyhemoglobin ABG Potassium ABG Glucose Oxyhemoglobin Carboxyhemoglobin Sodium Potassium Chloride Carbon Dioxide BUN Creatinine Glucose POC Glucose 157 H 118 H Calcium Ferritin Total Bilirubin Alkaline Phosphatase Lactate Dehydrogenase Total Creatine Kinase CK-MB (CK-2) Rel Index Troponin T C-Reactive Protein Total Protein Albumin Prealbumin LDL Cholesterol Direct Arterial Blood Glucose Arterial Blood Ionized Calcium Urine WBC (Auto) 03/15/20 03/15/20 03/15/20 08:06 12:44 18:09 WBC RBC Hgb Hct MCV MCH RDW Plt Count Lymph % (Auto) Lymph # (Auto) [place] # (Auto) Seg Neutrophils % Seg Neuts % (Manual) Lymphocytes % (Manual) Monocytes % (Manual) Basophils % (Manual) Seg Neutrophils # Seg Neutrophils # Man Lymphocytes # (Manual) Monocytes # (Manual) Eosinophils # (Manual) Basophils # (Manual) PT INR D-Dimer ABG pH POC ABG pCO2 POC ABG pO2 ABG pO2 ABG HCO3 ABG O2 Saturation ABG Base Excess ABG Hemoglobin ABG Oxyhemoglobin ABG Potassium ABG Glucose Oxyhemoglobin Carboxyhemoglobin Sodium 136 L Potassium Chloride 93.6 L Carbon Dioxide 37 H BUN Creatinine < 0.2 L Glucose 132 H POC Glucose 151 H 164 H Calcium Ferritin Total Bilirubin Alkaline Phosphatase Lactate Dehydrogenase Total Creatine Kinase CK-MB (CK-2) Rel Index Troponin T C-Reactive Protein Total Protein Albumin Prealbumin LDL Cholesterol Direct Arterial Blood Glucose Arterial Blood Ionized Calcium Urine WBC (Auto) 03/15/20 03/16/20 03/16/20 23:26 05:39 11:58 WBC RBC Hgb Hct MCV MCH RDW Plt Count Lymph % (Auto) Lymph # (Auto) [place] # (Auto) Seg Neutrophils % Seg Neuts % (Manual) Lymphocytes % (Manual) Monocytes % (Manual) Basophils % (Manual) Seg Neutrophils # Seg Neutrophils # Man Lymphocytes # (Manual) Monocytes # (Manual) Eosinophils # (Manual) Basophils # (Manual) PT INR D-Dimer ABG pH POC ABG pCO2 POC ABG pO2 ABG pO2 ABG HCO3 ABG O2 Saturation ABG Base Excess ABG Hemoglobin ABG Oxyhemoglobin ABG Potassium ABG Glucose Oxyhemoglobin Carboxyhemoglobin Sodium Potassium Chloride Carbon Dioxide BUN Creatinine Glucose POC Glucose 136 H 116 H 109 H Calcium Ferritin Total Bilirubin Alkaline Phosphatase Lactate Dehydrogenase Total Creatine Kinase CK-MB (CK-2) Rel Index Troponin T C-Reactive Protein Total Protein Albumin Prealbumin LDL Cholesterol Direct Arterial Blood Glucose Arterial Blood Ionized Calcium Urine WBC (Auto) 03/16/20 03/17/20 03/17/20 23:56 04:40 04:40 WBC 18.0 H RBC 3.33 L Hgb 9.5 L Hct 28.8 L MCV MCH RDW 16.4 H Plt Count 499 H Lymph % (Auto) Lymph # (Auto) [place] # (Auto) Seg Neutrophils % Seg Neuts % (Manual) 82.0 H Lymphocytes % (Manual) 8.0 L Monocytes % (Manual) Basophils % (Manual) Seg Neutrophils # Seg Neutrophils # Man 14.8 H Lymphocytes # (Manual) Monocytes # (Manual) 1.3 H Eosinophils # (Manual) Basophils # (Manual) 0.2 H PT INR D-Dimer ABG pH POC ABG pCO2 POC ABG pO2 ABG pO2 ABG HCO3 ABG O2 Saturation ABG Base Excess ABG Hemoglobin ABG Oxyhemoglobin ABG Potassium ABG Glucose Oxyhemoglobin Carboxyhemoglobin Sodium Potassium Chloride 97.7 L Carbon Dioxide 32 H BUN Creatinine < 0.2 L Glucose 114 H POC Glucose 131 H Calcium Ferritin Total Bilirubin Alkaline Phosphatase Lactate Dehydrogenase Total Creatine Kinase CK-MB (CK-2) Rel Index Troponin T C-Reactive Protein Total Protein Albumin Prealbumin LDL Cholesterol Direct Arterial Blood Glucose Arterial Blood Ionized Calcium Urine WBC (Auto) 03/18/20 03/18/20 03/18/20 00:21 05:21 11:55 WBC RBC Hgb Hct MCV MCH RDW Plt Count Lymph % (Auto) Lymph # (Auto) [place] # (Auto) Seg Neutrophils % Seg Neuts % (Manual) Lymphocytes % (Manual) Monocytes % (Manual) Basophils % (Manual) Seg Neutrophils # Seg Neutrophils # Man Lymphocytes # (Manual) Monocytes # (Manual) Eosinophils # (Manual) Basophils # (Manual) PT INR D-Dimer ABG pH POC ABG pCO2 POC ABG pO2 ABG pO2 ABG HCO3 ABG O2 Saturation ABG Base Excess ABG Hemoglobin ABG Oxyhemoglobin ABG Potassium ABG Glucose Oxyhemoglobin Carboxyhemoglobin Sodium Potassium Chloride Carbon Dioxide BUN Creatinine Glucose POC Glucose 124 H 138 H 119 H Calcium Ferritin Total Bilirubin Alkaline Phosphatase Lactate Dehydrogenase Total Creatine Kinase CK-MB (CK-2) Rel Index Troponin T C-Reactive Protein Total Protein Albumin Prealbumin LDL Cholesterol Direct Arterial Blood Glucose Arterial Blood Ionized Calcium Urine WBC (Auto) 03/18/20 03/18/20 03/19/20 17:03 23:58 05:24 WBC RBC Hgb Hct MCV MCH RDW Plt Count Lymph % (Auto) Lymph # (Auto) [place] # (Auto) Seg Neutrophils % Seg Neuts % (Manual) Lymphocytes % (Manual) Monocytes % (Manual) Basophils % (Manual) Seg Neutrophils # Seg Neutrophils # Man Lymphocytes # (Manual) Monocytes # (Manual) Eosinophils # (Manual) Basophils # (Manual) PT INR D-Dimer ABG pH POC ABG pCO2 POC ABG pO2 ABG pO2 ABG HCO3 ABG O2 Saturation ABG Base Excess ABG Hemoglobin ABG Oxyhemoglobin ABG Potassium ABG Glucose Oxyhemoglobin Carboxyhemoglobin Sodium Potassium Chloride Carbon Dioxide BUN Creatinine Glucose POC Glucose 128 H 128 H 115 H Calcium Ferritin Total Bilirubin Alkaline Phosphatase Lactate Dehydrogenase Total Creatine Kinase CK-MB (CK-2) Rel Index Troponin T C-Reactive Protein Total Protein Albumin Prealbumin LDL Cholesterol Direct Arterial Blood Glucose Arterial Blood Ionized Calcium Urine WBC (Auto) 03/19/20 03/19/20 03/19/20 08:05 08:05 11:56 WBC 16.8 H RBC 3.36 L Hgb 9.4 L Hct 28.8 L MCV MCH RDW 17.4 H Plt Count 567 H Lymph % (Auto) 7.8 L Lymph # (Auto) [place] # (Auto) 1.2 H Seg Neutrophils % 83.5 H Seg Neuts % (Manual) Lymphocytes % (Manual) Monocytes % (Manual) Basophils % (Manual) Seg Neutrophils # 14.1 H Seg Neutrophils # Man Lymphocytes # (Manual) Monocytes # (Manual) Eosinophils # (Manual) Basophils # (Manual) PT INR D-Dimer ABG pH POC ABG pCO2 POC ABG pO2 ABG pO2 ABG HCO3 ABG O2 Saturation ABG Base Excess ABG Hemoglobin ABG Oxyhemoglobin ABG Potassium ABG Glucose Oxyhemoglobin Carboxyhemoglobin Sodium Potassium Chloride Carbon Dioxide 36 H BUN Creatinine < 0.2 L Glucose 135 H POC Glucose 128 H Calcium Ferritin Total Bilirubin Alkaline Phosphatase Lactate Dehydrogenase Total Creatine Kinase CK-MB (CK-2) Rel Index Troponin T C-Reactive Protein Total Protein Albumin Prealbumin LDL Cholesterol Direct Arterial Blood Glucose Arterial Blood Ionized Calcium Urine WBC (Auto) 03/19/20 03/20/20 03/20/20 23:59 05:12 16:52 WBC RBC Hgb Hct MCV MCH RDW Plt Count Lymph % (Auto) Lymph # (Auto) [place] # (Auto) Seg Neutrophils % Seg Neuts % (Manual) Lymphocytes % (Manual) Monocytes % (Manual) Basophils % (Manual) Seg Neutrophils # Seg Neutrophils # Man Lymphocytes # (Manual) Monocytes # (Manual) Eosinophils # (Manual) Basophils # (Manual) PT INR D-Dimer ABG pH POC ABG pCO2 POC ABG pO2 ABG pO2 ABG HCO3 ABG O2 Saturation ABG Base Excess ABG Hemoglobin ABG Oxyhemoglobin ABG Potassium ABG Glucose Oxyhemoglobin Carboxyhemoglobin Sodium Potassium Chloride Carbon Dioxide BUN Creatinine Glucose POC Glucose 120 H 131 H 124 H Calcium Ferritin Total Bilirubin Alkaline Phosphatase Lactate Dehydrogenase Total Creatine Kinase CK-MB (CK-2) Rel Index Troponin T C-Reactive Protein Total Protein Albumin Prealbumin LDL Cholesterol Direct Arterial Blood Glucose Arterial Blood Ionized Calcium Urine WBC (Auto) 03/20/20 03/21/20 03/21/20 23:35 04:50 07:35 WBC 15.2 H RBC 3.39 L Hgb 9.4 L Hct 29.4 L MCV MCH RDW 17.6 H Plt Count 518 H Lymph % (Auto) Lymph # (Auto) [place] # (Auto) Seg Neutrophils % Seg Neuts % (Manual) 83.0 H Lymphocytes % (Manual) 10.0 L Monocytes % (Manual) Basophils % (Manual) 2.0 H Seg Neutrophils # Seg Neutrophils # Man 12.6 H Lymphocytes # (Manual) Monocytes # (Manual) Eosinophils # (Manual) Basophils # (Manual) 0.3 H PT INR D-Dimer ABG pH POC ABG pCO2 POC ABG pO2 ABG pO2 ABG HCO3 ABG O2 Saturation ABG Base Excess ABG Hemoglobin ABG Oxyhemoglobin ABG Potassium ABG Glucose Oxyhemoglobin Carboxyhemoglobin Sodium Potassium Chloride Carbon Dioxide BUN Creatinine Glucose POC Glucose 125 H 127 H Calcium Ferritin Total Bilirubin Alkaline Phosphatase Lactate Dehydrogenase Total Creatine Kinase CK-MB (CK-2) Rel Index Troponin T C-Reactive Protein Total Protein Albumin Prealbumin LDL Cholesterol Direct Arterial Blood Glucose Arterial Blood Ionized Calcium Urine WBC (Auto) 03/21/20 03/21/20 03/21/20 07:35 11:45 17:22 WBC RBC Hgb Hct MCV MCH RDW Plt Count Lymph % (Auto) Lymph # (Auto) [place] # (Auto) Seg Neutrophils % Seg Neuts % (Manual) Lymphocytes % (Manual) Monocytes % (Manual) Basophils % (Manual) Seg Neutrophils # Seg Neutrophils # Man Lymphocytes # (Manual) Monocytes # (Manual) Eosinophils # (Manual) Basophils # (Manual) PT INR D-Dimer ABG pH POC ABG pCO2 POC ABG pO2 ABG pO2 ABG HCO3 ABG O2 Saturation ABG Base Excess ABG Hemoglobin ABG Oxyhemoglobin ABG Potassium ABG Glucose Oxyhemoglobin Carboxyhemoglobin Sodium 136 L Potassium Chloride 97.7 L Carbon Dioxide 32 H BUN Creatinine < 0.2 L Glucose 103 H POC Glucose 126 H 120 H Calcium Ferritin Total Bilirubin Alkaline Phosphatase Lactate Dehydrogenase Total Creatine Kinase CK-MB (CK-2) Rel Index Troponin T C-Reactive Protein Total Protein Albumin Prealbumin LDL Cholesterol Direct Arterial Blood Glucose Arterial Blood Ionized Calcium Urine WBC (Auto) 03/22/20 03/22/20 03/22/20 05:09 06:34 06:34 WBC 17.5 H RBC 3.52 L Hgb 10.0 L Hct 30.7 L MCV MCH RDW 17.5 H Plt Count 499 H Lymph % (Auto) Lymph # (Auto) [place] # (Auto) Seg Neutrophils % Seg Neuts % (Manual) 80.0 H Lymphocytes % (Manual) 10.0 L Monocytes % (Manual) Basophils % (Manual) Seg Neutrophils # Seg Neutrophils # Man 14.0 H Lymphocytes # (Manual) Monocytes # (Manual) Eosinophils # (Manual) Basophils # (Manual) PT INR D-Dimer ABG pH POC ABG pCO2 POC ABG pO2 ABG pO2 ABG HCO3 ABG O2 Saturation ABG Base Excess ABG Hemoglobin ABG Oxyhemoglobin ABG Potassium ABG Glucose Oxyhemoglobin Carboxyhemoglobin Sodium Potassium Chloride 96.6 L Carbon Dioxide 38 H BUN Creatinine < 0.2 L Glucose 139 H POC Glucose 125 H Calcium Ferritin Total Bilirubin Alkaline Phosphatase Lactate Dehydrogenase Total Creatine Kinase CK-MB (CK-2) Rel Index Troponin T C-Reactive Protein Total Protein Albumin Prealbumin LDL Cholesterol Direct Arterial Blood Glucose Arterial Blood Ionized Calcium Urine WBC (Auto) 03/22/20 03/22/20 03/22/20 11:45 18:00 23:32 WBC RBC Hgb Hct MCV MCH RDW Plt Count Lymph % (Auto) Lymph # (Auto) [place] # (Auto) Seg Neutrophils % Seg Neuts % (Manual) Lymphocytes % (Manual) Monocytes % (Manual) Basophils % (Manual) Seg Neutrophils # Seg Neutrophils # Man Lymphocytes # (Manual) Monocytes # (Manual) Eosinophils # (Manual) Basophils # (Manual) PT INR D-Dimer ABG pH POC ABG pCO2 POC ABG pO2 ABG pO2 ABG HCO3 ABG O2 Saturation ABG Base Excess ABG Hemoglobin ABG Oxyhemoglobin ABG Potassium ABG Glucose Oxyhemoglobin Carboxyhemoglobin Sodium Potassium Chloride Carbon Dioxide BUN Creatinine Glucose POC Glucose 135 H 133 H Calcium Ferritin Total Bilirubin Alkaline Phosphatase Lactate Dehydrogenase Total Creatine Kinase CK-MB (CK-2) Rel Index Troponin T 0.113 H* C-Reactive Protein Total Protein Albumin Prealbumin LDL Cholesterol Direct Arterial Blood Glucose Arterial Blood Ionized Calcium Urine WBC (Auto) 03/23/20 03/23/20 03/23/20 01:47 06:21 07:57 WBC RBC Hgb Hct MCV MCH RDW Plt Count Lymph % (Auto) Lymph # (Auto) [place] # (Auto) Seg Neutrophils % Seg Neuts % (Manual) Lymphocytes % (Manual) Monocytes % (Manual) Basophils % (Manual) Seg Neutrophils # Seg Neutrophils # Man Lymphocytes # (Manual) Monocytes # (Manual) Eosinophils # (Manual) Basophils # (Manual) PT INR D-Dimer ABG pH POC ABG pCO2 POC ABG pO2 ABG pO2 ABG HCO3 ABG O2 Saturation ABG Base Excess ABG Hemoglobin ABG Oxyhemoglobin ABG Potassium ABG Glucose Oxyhemoglobin Carboxyhemoglobin Sodium Potassium Chloride Carbon Dioxide BUN Creatinine Glucose POC Glucose 130 H Calcium Ferritin Total Bilirubin Alkaline Phosphatase Lactate Dehydrogenase Total Creatine Kinase CK-MB (CK-2) Rel Index Troponin T 0.143 H* D 0.105 H* D C-Reactive Protein Total Protein Albumin Prealbumin LDL Cholesterol Direct Arterial Blood Glucose Arterial Blood Ionized Calcium Urine WBC (Auto) 03/23/20 03/24/20 03/24/20 12:02 05:33 07:15 WBC 18.0 H RBC Hgb 11.0 L Hct 34.0 L MCV MCH RDW 17.4 H Plt Count 520 H Lymph % (Auto) Lymph # (Auto) [place] # (Auto) Seg Neutrophils % Seg Neuts % (Manual) 88.0 H Lymphocytes % (Manual) 7.0 L Monocytes % (Manual) Basophils % (Manual) Seg Neutrophils # Seg Neutrophils # Man 15.8 H Lymphocytes # (Manual) Monocytes # (Manual) Eosinophils # (Manual) Basophils # (Manual) PT INR D-Dimer ABG pH POC ABG pCO2 POC ABG pO2 ABG pO2 ABG HCO3 ABG O2 Saturation ABG Base Excess ABG Hemoglobin ABG Oxyhemoglobin ABG Potassium ABG Glucose Oxyhemoglobin Carboxyhemoglobin Sodium Potassium Chloride Carbon Dioxide BUN Creatinine Glucose POC Glucose 137 H 112 H Calcium Ferritin Total Bilirubin Alkaline Phosphatase Lactate Dehydrogenase Total Creatine Kinase CK-MB (CK-2) Rel Index Troponin T C-Reactive Protein Total Protein Albumin Prealbumin LDL Cholesterol Direct Arterial Blood Glucose Arterial Blood Ionized Calcium Urine WBC (Auto) 03/24/20 03/24/20 03/24/20 07:15 11:22 23:30 WBC RBC Hgb Hct MCV MCH RDW Plt Count Lymph % (Auto) Lymph # (Auto) [place] # (Auto) Seg Neutrophils % Seg Neuts % (Manual) Lymphocytes % (Manual) Monocytes % (Manual) Basophils % (Manual) Seg Neutrophils # Seg Neutrophils # Man Lymphocytes # (Manual) Monocytes # (Manual) Eosinophils # (Manual) Basophils # (Manual) PT INR D-Dimer ABG pH POC ABG pCO2 POC ABG pO2 ABG pO2 ABG HCO3 ABG O2 Saturation ABG Base Excess ABG Hemoglobin ABG Oxyhemoglobin ABG Potassium ABG Glucose Oxyhemoglobin Carboxyhemoglobin Sodium Potassium Chloride 96.6 L Carbon Dioxide 38 H BUN Creatinine < 0.2 L Glucose 141 H POC Glucose 130 H 120 H Calcium Ferritin Total Bilirubin Alkaline Phosphatase Lactate Dehydrogenase Total Creatine Kinase CK-MB (CK-2) Rel Index Troponin T C-Reactive Protein Total Protein Albumin Prealbumin LDL Cholesterol Direct Arterial Blood Glucose Arterial Blood Ionized Calcium Urine WBC (Auto) 03/25/20 03/25/20 03/25/20 05:48 17:53 23:18 WBC RBC Hgb Hct MCV MCH RDW Plt Count Lymph % (Auto) Lymph # (Auto) [place] # (Auto) Seg Neutrophils % Seg Neuts % (Manual) Lymphocytes % (Manual) Monocytes % (Manual) Basophils % (Manual) Seg Neutrophils # Seg Neutrophils # Man Lymphocytes # (Manual) Monocytes # (Manual) Eosinophils # (Manual) Basophils # (Manual) PT INR D-Dimer ABG pH POC ABG pCO2 POC ABG pO2 ABG pO2 ABG HCO3 ABG O2 Saturation ABG Base Excess ABG Hemoglobin ABG Oxyhemoglobin ABG Potassium ABG Glucose Oxyhemoglobin Carboxyhemoglobin Sodium Potassium Chloride Carbon Dioxide BUN Creatinine Glucose POC Glucose 124 H 109 H 131 H Calcium Ferritin Total Bilirubin Alkaline Phosphatase Lactate Dehydrogenase Total Creatine Kinase CK-MB (CK-2) Rel Index Troponin T C-Reactive Protein Total Protein Albumin Prealbumin LDL Cholesterol Direct Arterial Blood Glucose Arterial Blood Ionized Calcium Urine WBC (Auto) 03/26/20 03/26/20 03/26/20 05:21 08:49 08:49 WBC 19.7 H RBC Hgb 10.7 L Hct 33.5 L MCV MCH 27 L RDW 17.1 H Plt Count 480 H Lymph % (Auto) 5.7 L Lymph # (Auto) 1.1 L [place] # (Auto) 1.2 H Seg Neutrophils % 87.7 H Seg Neuts % (Manual) Lymphocytes % (Manual) Monocytes % (Manual) Basophils % (Manual) Seg Neutrophils # 17.2 H Seg Neutrophils # Man Lymphocytes # (Manual) Monocytes # (Manual) Eosinophils # (Manual) Basophils # (Manual) PT INR D-Dimer ABG pH POC ABG pCO2 POC ABG pO2 ABG pO2 ABG HCO3 ABG O2 Saturation ABG Base Excess ABG Hemoglobin ABG Oxyhemoglobin ABG Potassium ABG Glucose Oxyhemoglobin Carboxyhemoglobin Sodium Potassium Chloride 97.2 L Carbon Dioxide 36 H BUN Creatinine < 0.2 L Glucose 127 H POC Glucose 116 H Calcium Ferritin Total Bilirubin Alkaline Phosphatase Lactate Dehydrogenase Total Creatine Kinase CK-MB (CK-2) Rel Index Troponin T C-Reactive Protein Total Protein Albumin Prealbumin LDL Cholesterol Direct Arterial Blood Glucose Arterial Blood Ionized Calcium Urine WBC (Auto) 03/26/20 03/26/20 03/26/20 11:38 18:44 23:06 WBC RBC Hgb Hct MCV MCH RDW Plt Count Lymph % (Auto) Lymph # (Auto) [place] # (Auto) Seg Neutrophils % Seg Neuts % (Manual) Lymphocytes % (Manual) Monocytes % (Manual) Basophils % (Manual) Seg Neutrophils # Seg Neutrophils # Man Lymphocytes # (Manual) Monocytes # (Manual) Eosinophils # (Manual) Basophils # (Manual) PT INR D-Dimer ABG pH POC ABG pCO2 POC ABG pO2 ABG pO2 ABG HCO3 ABG O2 Saturation ABG Base Excess ABG Hemoglobin ABG Oxyhemoglobin ABG Potassium ABG Glucose Oxyhemoglobin Carboxyhemoglobin Sodium Potassium Chloride Carbon Dioxide BUN Creatinine Glucose POC Glucose 120 H 111 H 134 H Calcium Ferritin Total Bilirubin Alkaline Phosphatase Lactate Dehydrogenase Total Creatine Kinase CK-MB (CK-2) Rel Index Troponin T C-Reactive Protein Total Protein Albumin Prealbumin LDL Cholesterol Direct Arterial Blood Glucose Arterial Blood Ionized Calcium Urine WBC (Auto) 03/27/20 03/27/20 03/27/20 05:41 05:59 05:59 WBC 18.6 H RBC Hgb 10.1 L Hct 31.4 L MCV MCH RDW 17.2 H Plt Count Lymph % (Auto) 8.0 L Lymph # (Auto) [place] # (Auto) 1.2 H Seg Neutrophils % 84.7 H Seg Neuts % (Manual) Lymphocytes % (Manual) Monocytes % (Manual) Basophils % (Manual) Seg Neutrophils # 15.8 H Seg Neutrophils # Man Lymphocytes # (Manual) Monocytes # (Manual) Eosinophils # (Manual) Basophils # (Manual) PT INR D-Dimer ABG pH POC ABG pCO2 POC ABG pO2 ABG pO2 ABG HCO3 ABG O2 Saturation ABG Base Excess ABG Hemoglobin ABG Oxyhemoglobin ABG Potassium ABG Glucose Oxyhemoglobin Carboxyhemoglobin Sodium Potassium Chloride Carbon Dioxide 34 H BUN Creatinine < 0.2 L Glucose 127 H POC Glucose 129 H Calcium Ferritin Total Bilirubin Alkaline Phosphatase Lactate Dehydrogenase Total Creatine Kinase CK-MB (CK-2) Rel Index Troponin T C-Reactive Protein Total Protein Albumin Prealbumin LDL Cholesterol Direct Arterial Blood Glucose Arterial Blood Ionized Calcium Urine WBC (Auto) 03/27/20 03/27/20 03/28/20 17:28 23:22 05:23 WBC RBC Hgb Hct MCV MCH RDW Plt Count Lymph % (Auto) Lymph # (Auto) [place] # (Auto) Seg Neutrophils % Seg Neuts % (Manual) Lymphocytes % (Manual) Monocytes % (Manual) Basophils % (Manual) Seg Neutrophils # Seg Neutrophils # Man Lymphocytes # (Manual) Monocytes # (Manual) Eosinophils # (Manual) Basophils # (Manual) PT INR D-Dimer ABG pH POC ABG pCO2 POC ABG pO2 ABG pO2 ABG HCO3 ABG O2 Saturation ABG Base Excess ABG Hemoglobin ABG Oxyhemoglobin ABG Potassium ABG Glucose Oxyhemoglobin Carboxyhemoglobin Sodium Potassium Chloride Carbon Dioxide BUN Creatinine Glucose POC Glucose 108 H 119 H 129 H Calcium Ferritin Total Bilirubin Alkaline Phosphatase Lactate Dehydrogenase Total Creatine Kinase CK-MB (CK-2) Rel Index Troponin T C-Reactive Protein Total Protein Albumin Prealbumin LDL Cholesterol Direct Arterial Blood Glucose Arterial Blood Ionized Calcium Urine WBC (Auto) 03/28/20 03/28/20 03/28/20 10:28 10:28 11:36 WBC 23.6 H RBC 3.62 L Hgb 10.0 L Hct 30.8 L MCV MCH RDW 16.4 H Plt Count Lymph % (Auto) Lymph # (Auto) [place] # (Auto) Seg Neutrophils % Seg Neuts % (Manual) 89.0 H Lymphocytes % (Manual) 5.0 L Monocytes % (Manual) Basophils % (Manual) Seg Neutrophils # Seg Neutrophils # Man 21.0 H Lymphocytes # (Manual) Monocytes # (Manual) 1.2 H Eosinophils # (Manual) Basophils # (Manual) 0.2 H PT INR D-Dimer ABG pH POC ABG pCO2 POC ABG pO2 ABG pO2 ABG HCO3 ABG O2 Saturation ABG Base Excess ABG Hemoglobin ABG Oxyhemoglobin ABG Potassium ABG Glucose Oxyhemoglobin Carboxyhemoglobin Sodium 134 L Potassium Chloride 94.2 L Carbon Dioxide 35 H BUN Creatinine < 0.2 L Glucose 134 H POC Glucose Calcium Ferritin Total Bilirubin Alkaline Phosphatase Lactate Dehydrogenase Total Creatine Kinase CK-MB (CK-2) Rel Index Troponin T C-Reactive Protein Total Protein Albumin Prealbumin LDL Cholesterol Direct Arterial Blood Glucose Arterial Blood Ionized Calcium Urine WBC (Auto) 39.0 H 03/28/20 03/28/20 03/28/20 11:51 17:08 17:17 WBC RBC Hgb Hct MCV MCH RDW Plt Count Lymph % (Auto) Lymph # (Auto) [place] # (Auto) Seg Neutrophils % Seg Neuts % (Manual) Lymphocytes % (Manual) Monocytes % (Manual) Basophils % (Manual) Seg Neutrophils # Seg Neutrophils # Man Lymphocytes # (Manual) Monocytes # (Manual) Eosinophils # (Manual) Basophils # (Manual) PT INR D-Dimer ABG pH POC ABG pCO2 POC ABG pO2 ABG pO2 ABG HCO3 ABG O2 Saturation ABG Base Excess ABG Hemoglobin ABG Oxyhemoglobin ABG Potassium ABG Glucose Oxyhemoglobin Carboxyhemoglobin Sodium Potassium Chloride Carbon Dioxide BUN Creatinine Glucose POC Glucose 123 H 112 H Calcium Ferritin Total Bilirubin Alkaline Phosphatase Lactate Dehydrogenase Total Creatine Kinase 47 L CK-MB (CK-2) Rel Index 4.6 H Troponin T 0.090 H C-Reactive Protein Total Protein Albumin Prealbumin LDL Cholesterol Direct Arterial Blood Glucose Arterial Blood Ionized Calcium Urine WBC (Auto) 03/28/20 03/29/20 03/29/20 23:22 05:22 10:58 WBC RBC Hgb Hct MCV MCH RDW Plt Count Lymph % (Auto) Lymph # (Auto) [place] # (Auto) Seg Neutrophils % Seg Neuts % (Manual) Lymphocytes % (Manual) Monocytes % (Manual) Basophils % (Manual) Seg Neutrophils # Seg Neutrophils # Man Lymphocytes # (Manual) Monocytes # (Manual) Eosinophils # (Manual) Basophils # (Manual) PT INR D-Dimer ABG pH POC ABG pCO2 POC ABG pO2 ABG pO2 ABG HCO3 ABG O2 Saturation ABG Base Excess ABG Hemoglobin ABG Oxyhemoglobin ABG Potassium ABG Glucose Oxyhemoglobin Carboxyhemoglobin Sodium Potassium Chloride Carbon Dioxide BUN Creatinine Glucose POC Glucose 122 H 116 H 133 H Calcium Ferritin Total Bilirubin Alkaline Phosphatase Lactate Dehydrogenase Total Creatine Kinase CK-MB (CK-2) Rel Index Troponin T C-Reactive Protein Total Protein Albumin Prealbumin LDL Cholesterol Direct Arterial Blood Glucose Arterial Blood Ionized Calcium Urine WBC (Auto) 03/29/20 03/29/20 03/30/20 17:18 23:14 04:57 WBC RBC Hgb Hct MCV MCH RDW Plt Count Lymph % (Auto) Lymph # (Auto) [place] # (Auto) Seg Neutrophils % Seg Neuts % (Manual) Lymphocytes % (Manual) Monocytes % (Manual) Basophils % (Manual) Seg Neutrophils # Seg Neutrophils # Man Lymphocytes # (Manual) Monocytes # (Manual) Eosinophils # (Manual) Basophils # (Manual) PT INR D-Dimer ABG pH POC ABG pCO2 POC ABG pO2 ABG pO2 ABG HCO3 ABG O2 Saturation ABG Base Excess ABG Hemoglobin ABG Oxyhemoglobin ABG Potassium ABG Glucose Oxyhemoglobin Carboxyhemoglobin Sodium Potassium Chloride Carbon Dioxide BUN Creatinine Glucose POC Glucose 111 H 114 H 130 H Calcium Ferritin Total Bilirubin Alkaline Phosphatase Lactate Dehydrogenase Total Creatine Kinase CK-MB (CK-2) Rel Index Troponin T C-Reactive Protein Total Protein Albumin Prealbumin LDL Cholesterol Direct Arterial Blood Glucose Arterial Blood Ionized Calcium Urine WBC (Auto) 03/30/20 03/30/20 03/30/20 11:38 14:47 14:47 WBC 19.9 H RBC Hgb 10.9 L Hct 34.4 L MCV MCH 27 L RDW 16.5 H Plt Count 441 H Lymph % (Auto) 6.4 L Lymph # (Auto) [place] # (Auto) 1.4 H Seg Neutrophils % 86.1 H Seg Neuts % (Manual) Lymphocytes % (Manual) Monocytes % (Manual) Basophils % (Manual) Seg Neutrophils # 17.1 H Seg Neutrophils # Man Lymphocytes # (Manual) Monocytes # (Manual) Eosinophils # (Manual) Basophils # (Manual) PT INR D-Dimer ABG pH POC ABG pCO2 POC ABG pO2 ABG pO2 ABG HCO3 ABG O2 Saturation ABG Base Excess ABG Hemoglobin ABG Oxyhemoglobin ABG Potassium ABG Glucose Oxyhemoglobin Carboxyhemoglobin Sodium 133 L Potassium Chloride 94.6 L Carbon Dioxide 33 H BUN Creatinine < 0.2 L Glucose 194 H POC Glucose 139 H Calcium Ferritin Total Bilirubin Alkaline Phosphatase Lactate Dehydrogenase Total Creatine Kinase CK-MB (CK-2) Rel Index Troponin T C-Reactive Protein Total Protein Albumin 2.8 L Prealbumin LDL Cholesterol Direct Arterial Blood Glucose Arterial Blood Ionized Calcium Urine WBC (Auto) 03/30/20 03/31/20 03/31/20 17:07 05:02 15:21 WBC RBC Hgb Hct MCV MCH RDW Plt Count Lymph % (Auto) Lymph # (Auto) [place] # (Auto) Seg Neutrophils % Seg Neuts % (Manual) Lymphocytes % (Manual) Monocytes % (Manual) Basophils % (Manual) Seg Neutrophils # Seg Neutrophils # Man Lymphocytes # (Manual) Monocytes # (Manual) Eosinophils # (Manual) Basophils # (Manual) PT INR D-Dimer ABG pH POC ABG pCO2 POC ABG pO2 ABG pO2 ABG HCO3 ABG O2 Saturation ABG Base Excess ABG Hemoglobin ABG Oxyhemoglobin ABG Potassium ABG Glucose Oxyhemoglobin Carboxyhemoglobin Sodium Potassium Chloride Carbon Dioxide BUN Creatinine Glucose POC Glucose 163 H 108 H 110 H Calcium Ferritin Total Bilirubin Alkaline Phosphatase Lactate Dehydrogenase Total Creatine Kinase CK-MB (CK-2) Rel Index Troponin T C-Reactive Protein Total Protein Albumin Prealbumin LDL Cholesterol Direct Arterial Blood Glucose Arterial Blood Ionized Calcium Urine WBC (Auto) 03/31/20 03/31/20 04/01/20 17:58 23:19 05:09 WBC RBC Hgb Hct MCV MCH RDW Plt Count Lymph % (Auto) Lymph # (Auto) [place] # (Auto) Seg Neutrophils % Seg Neuts % (Manual) Lymphocytes % (Manual) Monocytes % (Manual) Basophils % (Manual) Seg Neutrophils # Seg Neutrophils # Man Lymphocytes # (Manual) Monocytes # (Manual) Eosinophils # (Manual) Basophils # (Manual) PT INR D-Dimer ABG pH POC ABG pCO2 POC ABG pO2 ABG pO2 ABG HCO3 ABG O2 Saturation ABG Base Excess ABG Hemoglobin ABG Oxyhemoglobin ABG Potassium ABG Glucose Oxyhemoglobin Carboxyhemoglobin Sodium Potassium Chloride Carbon Dioxide BUN Creatinine Glucose POC Glucose 110 H 131 H 124 H Calcium Ferritin Total Bilirubin Alkaline Phosphatase Lactate Dehydrogenase Total Creatine Kinase CK-MB (CK-2) Rel Index Troponin T C-Reactive Protein Total Protein Albumin Prealbumin LDL Cholesterol Direct Arterial Blood Glucose Arterial Blood Ionized Calcium Urine WBC (Auto) 04/01/20 04/01/20 04/01/20 11:50 17:01 23:21 WBC RBC Hgb Hct MCV MCH RDW Plt Count Lymph % (Auto) Lymph # (Auto) [place] # (Auto) Seg Neutrophils % Seg Neuts % (Manual) Lymphocytes % (Manual) Monocytes % (Manual) Basophils % (Manual) Seg Neutrophils # Seg Neutrophils # Man Lymphocytes # (Manual) Monocytes # (Manual) Eosinophils # (Manual) Basophils # (Manual) PT INR D-Dimer ABG pH POC ABG pCO2 POC ABG pO2 ABG pO2 ABG HCO3 ABG O2 Saturation ABG Base Excess ABG Hemoglobin ABG Oxyhemoglobin ABG Potassium ABG Glucose Oxyhemoglobin Carboxyhemoglobin Sodium Potassium Chloride Carbon Dioxide BUN Creatinine Glucose POC Glucose 136 H 115 H 124 H Calcium Ferritin Total Bilirubin Alkaline Phosphatase Lactate Dehydrogenase Total Creatine Kinase CK-MB (CK-2) Rel Index Troponin T C-Reactive Protein Total Protein Albumin Prealbumin LDL Cholesterol Direct Arterial Blood Glucose Arterial Blood Ionized Calcium Urine WBC (Auto) 04/02/20 04/02/20 05:27 11:58 WBC RBC Hgb Hct MCV MCH RDW Plt Count Lymph % (Auto) Lymph # (Auto) [place] # (Auto) Seg Neutrophils % Seg Neuts % (Manual) Lymphocytes % (Manual) Monocytes % (Manual) Basophils % (Manual) Seg Neutrophils # Seg Neutrophils # Man Lymphocytes # (Manual) Monocytes # (Manual) Eosinophils # (Manual) Basophils # (Manual) PT INR D-Dimer ABG pH POC ABG pCO2 POC ABG pO2 ABG pO2 ABG HCO3 ABG O2 Saturation ABG Base Excess ABG Hemoglobin ABG Oxyhemoglobin ABG Potassium ABG Glucose Oxyhemoglobin Carboxyhemoglobin Sodium Potassium Chloride Carbon Dioxide BUN Creatinine Glucose POC Glucose 117 H 133 H Calcium Ferritin Total Bilirubin Alkaline Phosphatase Lactate Dehydrogenase Total Creatine Kinase CK-MB (CK-2) Rel Index Troponin T C-Reactive Protein Total Protein Albumin Prealbumin LDL Cholesterol Direct Arterial Blood Glucose Arterial Blood Ionized Calcium Urine WBC (Auto) Allied health notes reviewed: nursing
[2020-04-02] MEDS: ENOXAPARIN 40 MG/0.4 ML INJ SUB-Q SCH (21:22)
[2020-04-02] MEDS: ZOLPIDEM 5 MG TAB PO PRN (21:33)
[2020-04-03] MEDS: MORPHINE 2 MG/1 ML INJ IV PRN ×4 (04:59→20:51)
[2020-04-03] MEDS: GLYCOPYRROLATE 1 MG TAB PO SCH ×3 (09:05→20:51)
[2020-04-03] MEDS: METOPROLOL TARTRATE 25 MG TAB PO SCH ×2 (09:05→22:12)
[2020-04-03] MEDS: LIDOCAINE 5% 1 EACH PATCH TD SCH (09:06)
[2020-04-03] MEDS: LANSOPRAZOLE 30 MG SOLUTAB FEEDTUBE SCH (09:06)
[2020-04-03] MEDS: TAMSULOSIN 0.4 MG CAP PO SCH (09:06)
[2020-04-03] MEDS: SODIUM HYPOCHLORITE, DAKIN'S 1/2 STRENGTH (0.25%) 473 ML TOPICAL SOLN TP SCH ×2 (09:07→22:13)
--- NOTE | 2020-04-03 10:47 | Progress Note ---
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 Respiratory Failure Severe Sepsis with Shock Bilateral Pneumonia (Possible aspiration) History of ALS on Trilogy Oropharyngeal Dysphagia PUI-COVID Acute toxic metabolic encephalopathy Elevated D-dimer Elevated troponin possibly type 2 ischemia - resume home meds re: chrionic pain (Baclofen, Lyrica) - repeat CXR re: ? atelectasis - case management / discharge planning ongoing - continue care as below otherwise; - continue daytime t-piece trial attempts as tolerated (PSV if fails) - agrees to possible LTAC transfer while he is trying to find family members that may be trained for home ventilator support - wants us to talk to his "? personal high risk case manager" (case management trying to reach her) - may become intermediate designer vent dependent but too early to classify as such - continue ambien 10 mg qhs prn - continue xanax 0.5 mg po q8h prn - continue to rest on AC overnight for now - continue to optimize electrolytes (prn BMP, Mg & PO4) - repeat CXR prn +/- bronchoscopy for mucus plugging / large volume atelectasis - continue to rest on AC qhs - LTAC evaluation is appropriate - continue Robinul & scopolamine for secretion control - prn electrolytes and optimize K+ & Mg 2+ for best respiratory muscle function - wound care per RN/WCN - continue Scopolamine patch for secretion control - wean supplemental oxygen for target O2 sat's > 92% acutely - bronchodilators with pulmonary hygiene per RT - VAP bundle addressed - continue lung protective strategies - continue bronchodilators with pulmonary hygiene per RT - wean per pulmonary driven protocols otherwise - sedation prn for target RASS 0 to -1 - s/p empiric antiinfectives per ID rec's (Rocephin and Zithromax) - s/p COVID-19 isolation (Airborne & Contact) - empiric Dexamethasone - follow COVID-19 test results (negative) - trend inflammatory markers to aid clinical decision making - enteral nutrition at goal rate as tolerated - Aspiration precautions - accuchecks with glycemic control per SSI (While critically ill target blood glucose of 140-180 mg/dL; avoid hypoglycemia) - avoid nephrotoxins, renally dose all medications - avoid benzodiazepine's, reduce the possibility of delirium - prn analgesia per CPOT score - Maintenance of sleep-wake cycle, avoid delirium - aspiration precautions - G.I. & VTE prophylaxis - PT/OT/ROM exercises - mobility protocols for pressure ulcer prophylaxis - Monitor hemodynamics closely - continue other care per attending / other consultants - discharge planning ongoing concurrently .... Re-evaluate in am & prn CONDITION: CRITICAL PROGNOSIS: GUARDED CODE STATUS: FULL CODE The high probability of a clinically significant, sudden or life-threatening deterioration of the [respiratory, cardiovascular & neurologic] system(s) required my full and direct attention, intervention and personal management. The aggregate critical care time was [32] minutes without overlap. Time includes spent on; [x] Data Review and interpretation [x] Patient assessment and monitoring of vital signs [x] Documentation [x] Medication orders and management Subjective Date of service: 04/03/20 Principal diagnosis: Ac on Ch Hypercapnic & hypoxemic Resp Failure; Severe Sepsis; Jamar PNA; ALS Interval history: Patient is seen today for: Acute on Chronic Hypercapnic & hypoxemic Respiratory Failure; Severe Sepsis with Shock; Bilateral Pneumonia (Possible aspiration); History of ALS on Trilogy; PUI-COVID; Acute toxic metabolic encephalopathy Seen and examined at bedside; 24hour events reviewed; nursing and respiratory care staff consulted; no adverse overnight events reported to me; resting in bed; remains on MVS; not tolerating t-piece; denies chest pains or SOB Objective Vital Signs - 12hr 04/02/20 04/02/20 04/02/20 23:00 23:16 23:20 Temperature Pulse Rate 114 H 112 H 110 H Pulse Rate [ From Monitor] Respiratory 16 21 18 Rate Blood Pressure 122/83 122/83 122/83 O2 Sat by Pulse 97 98 98 Oximetry O2 Sat by Pulse Oximetry [ Assessment] 04/02/20 04/02/20 04/02/20 23:30 23:45 23:46 Temperature 99.2 F Pulse Rate 112 H 114 H Pulse Rate [ From Monitor] Respiratory 18 19 Rate Blood Pressure 122/83 122/83 O2 Sat by Pulse 92 96 Oximetry O2 Sat by Pulse Oximetry [ Assessment] 04/02/20 04/03/20 04/03/20 23:55 00:00 00:16 Temperature Pulse Rate 116 H 113 H 107 H Pulse Rate [ 109 H From Monitor] Respiratory 18 15 Rate Blood Pressure 122/83 122/84 122/84 O2 Sat by Pulse 95 94 94 Oximetry O2 Sat by Pulse Oximetry [ Assessment] 04/03/20 04/03/20 04/03/20 00:30 00:46 01:00 Temperature Pulse Rate 112 H 106 H 112 H Pulse Rate [ From Monitor] Respiratory 20 18 22 Rate Blood Pressure 130/87 130/87 128/85 O2 Sat by Pulse 94 93 95 Oximetry O2 Sat by Pulse Oximetry [ Assessment] 04/03/20 04/03/20 04/03/20 01:16 01:30 01:46 Temperature Pulse Rate 106 H 107 H 108 H Pulse Rate [ From Monitor] Respiratory 19 16 18 Rate Blood Pressure 128/85 125/85 125/85 O2 Sat by Pulse 96 89 94 Oximetry O2 Sat by Pulse Oximetry [ Assessment] 04/03/20 04/03/20 04/03/20 02:00 02:16 02:30 Temperature Pulse Rate 116 H 101 H 113 H Pulse Rate [ From Monitor] Respiratory 19 13 21 Rate Blood Pressure 131/87 131/87 132/87 O2 Sat by Pulse 93 94 93 Oximetry O2 Sat by Pulse Oximetry [ Assessment] 04/03/20 04/03/20 04/03/20 02:46 03:00 03:16 Temperature Pulse Rate 103 H 115 H 102 H Pulse Rate [ From Monitor] Respiratory 18 25 H 16 Rate Blood Pressure 132/87 132/88 132/88 O2 Sat by Pulse 94 93 93 Oximetry O2 Sat by Pulse Oximetry [ Assessment] 04/03/20 04/03/20 04/03/20 03:20 03:30 03:46 Temperature 100.4 F H Pulse Rate 109 H 105 H Pulse Rate [ From Monitor] Respiratory 21 16 Rate Blood Pressure 130/93 130/93 O2 Sat by Pulse 92 96 Oximetry O2 Sat by Pulse Oximetry [ Assessment] 04/03/20 04/03/20 04/03/20 04:00 04:16 04:30 Temperature Pulse Rate 110 H 104 H 118 H Pulse Rate [ 107 H From Monitor] Respiratory 16 21 24 Rate Blood Pressure 128/86 128/86 133/88 O2 Sat by Pulse 93 95 95 Oximetry O2 Sat by Pulse Oximetry [ Assessment] 04/03/20 04/03/20 04/03/20 04:46 04:51 05:00 Temperature Pulse Rate 107 H 109 H 110 H Pulse Rate [ From Monitor] Respiratory 21 22 Rate Blood Pressure 128/86 133/88 120/80 O2 Sat by Pulse 95 94 93 Oximetry O2 Sat by Pulse Oximetry [ Assessment] 04/03/20 04/03/20 04/03/20 05:03 05:16 05:30 Temperature Pulse Rate 111 H 106 H Pulse Rate [ From Monitor] Respiratory 17 15 Rate Blood Pressure 133/88 132/87 O2 Sat by Pulse 96 88 Oximetry O2 Sat by Pulse 98 Oximetry [ Assessment] 04/03/20 04/03/20 04/03/20 05:46 06:00 08:11 Temperature Pulse Rate 94 H 99 H 103 H Pulse Rate [ From Monitor] Respiratory 15 15 18 Rate Blood Pressure 132/87 142/91 132/82 O2 Sat by Pulse 96 94 95 Oximetry O2 Sat by Pulse Oximetry [ Assessment] 04/03/20 09:05 Temperature Pulse Rate 105 H Pulse Rate [ From Monitor] Respiratory Rate Blood Pressure 138/89 O2 Sat by Pulse Oximetry O2 Sat by Pulse Oximetry [ Assessment] Constitutional: no acute distress, other (thin middle aged male with mildly inc reased respiratory effort at rest on MVS) Eyes: non-icteric ENT: oropharynx moist, other (S/P Tracheostomy) Neck: supple, no lymphadenopathy, no JVD Effort: mildly labored Ascultation: Bilateral: rhonchi Percussion: Bilateral: not dull Cardiovascular: regular rate and rhythm, other (S1,S2, no murmurs) Gastrointestinal: normoactive bowel sounds, soft, non-tender, non-distended, other (+ distended but non tender suprapubis) Integumentary: normal, decubitus ulcer (sacral / gluteal) Extremities: no cyanosis, no edema, pulses normal, other (atrophic looking limbs) Neurologic: pupils equal and round, other (motor strength in extremities 1-2/5, awake, alert, mouths words to make needs known) Psychiatric: mood appropriate, affect normal CBC and BMP: 03/30/20 14:47 03/30/20 14:47 ABG, PT/INR, D-dimer: ABG ABG pH 7.371 (7.320-7.450) 03/08/20 12:34 POC ABG pCO2 63.1 mmHg (32.0-48.0) H 03/08/20 12:34 ABG pCO2 60.1 mm Hg 03/06/20 04:34 POC ABG pO2 90.5 mmHg (83-108) 03/08/20 12:34 ABG pO2 88.6 mm Hg (80.0-90.0) 03/06/20 04:34 POC ABG HCO3 35.7 03/08/20 12:34 ABG O2 Saturation 97.0 % (95.0-99.0) 03/06/20 04:34 PT/INR, D-dimer PT 15.6 Sec. (12.2-14.9) H 02/24/20 09:19 INR 1.21 (0.87-1.13) H 02/24/20 09:19 D-Dimer 1311.96 ng/mlDDU (0-234) H 02/24/20 09:19 Abnormal lab findings: Abnormal Labs 02/24/20 02/24/20 02/24/20 09:19 09:19 09:19 WBC 20.2 H RBC 5.05 H Hgb Hct MCV MCH RDW 15.3 H Plt Count Lymph % (Auto) Lymph # (Auto) [place] # (Auto) Seg Neutrophils % Seg Neuts % (Manual) 86.0 H Lymphocytes % (Manual) 1.0 L Monocytes % (Manual) Basophils % (Manual) Seg Neutrophils # Seg Neutrophils # Man 17.4 H Lymphocytes # (Manual) 0.2 L Monocytes # (Manual) Eosinophils # (Manual) Basophils # (Manual) PT 15.6 H INR 1.21 H D-Dimer 1311.96 H ABG pH POC ABG pCO2 POC ABG pO2 ABG pO2 ABG HCO3 ABG O2 Saturation ABG Base Excess ABG Hemoglobin ABG Oxyhemoglobin ABG Potassium ABG Glucose Oxyhemoglobin Carboxyhemoglobin Sodium 135 L Potassium 3.2 L Chloride 92.2 L Carbon Dioxide BUN 6 L Creatinine < 0.2 L Glucose 124 H POC Glucose Calcium Ferritin Total Bilirubin 2.30 H Alkaline Phosphatase 132 H Lactate Dehydrogenase Total Creatine Kinase CK-MB (CK-2) Rel Index Troponin T 0.080 H C-Reactive Protein Total Protein Albumin 3.6 L Prealbumin LDL Cholesterol Direct 41 L Arterial Blood Glucose Arterial Blood Ionized Calcium Urine WBC (Auto) 02/24/20 02/24/20 02/24/20 09:19 09:58 10:01 WBC RBC Hgb Hct MCV MCH RDW Plt Count Lymph % (Auto) Lymph # (Auto) [place] # (Auto) Seg Neutrophils % Seg Neuts % (Manual) Lymphocytes % (Manual) Monocytes % (Manual) Basophils % (Manual) Seg Neutrophils # Seg Neutrophils # Man Lymphocytes # (Manual) Monocytes # (Manual) Eosinophils # (Manual) Basophils # (Manual) PT INR D-Dimer ABG pH 7.176 L* POC ABG pCO2 POC ABG pO2 ABG pO2 91.2 H ABG HCO3 ABG O2 Saturation ABG Base Excess -4.6 L ABG Hemoglobin ABG Oxyhemoglobin ABG Potassium ABG Glucose Oxyhemoglobin 92.6 L Carboxyhemoglobin Sodium Potassium Chloride Carbon Dioxide BUN Creatinine Glucose POC Glucose Calcium Ferritin 1715.0 H Total Bilirubin Alkaline Phosphatase Lactate Dehydrogenase 303 H Total Creatine Kinase CK-MB (CK-2) Rel Index Troponin T C-Reactive Protein 26.10 H Total Protein Albumin Prealbumin LDL Cholesterol Direct Arterial Blood Glucose Arterial Blood Ionized Calcium Urine WBC (Auto) 02/24/20 02/24/20 02/24/20 11:52 13:45 19:35 WBC RBC Hgb Hct MCV MCH RDW Plt Count Lymph % (Auto) Lymph # (Auto) [place] # (Auto) Seg Neutrophils % Seg Neuts % (Manual) Lymphocytes % (Manual) Monocytes % (Manual) Basophils % (Manual) Seg Neutrophils # Seg Neutrophils # Man Lymphocytes # (Manual) Monocytes # (Manual) Eosinophils # (Manual) Basophils # (Manual) PT INR D-Dimer ABG pH 7.051 L* 7.300 L POC ABG pCO2 POC ABG pO2 ABG pO2 94.7 H 75.1 L ABG HCO3 18.0 L ABG O2 Saturation 93.5 L ABG Base Excess -6.8 L -7.8 L ABG Hemoglobin 13.2 L 11.9 L ABG Oxyhemoglobin ABG Potassium ABG Glucose Oxyhemoglobin 91.0 L 92.7 L Carboxyhemoglobin Sodium Potassium Chloride Carbon Dioxide BUN Creatinine Glucose POC Glucose Calcium Ferritin Total Bilirubin Alkaline Phosphatase Lactate Dehydrogenase Total Creatine Kinase CK-MB (CK-2) Rel Index Troponin T 0.034 H D C-Reactive Protein Total Protein Albumin Prealbumin LDL Cholesterol Direct Arterial Blood Glucose Arterial Blood Ionized Calcium Urine WBC (Auto) 02/25/20 02/25/20 02/25/20 04:00 04:00 12:26 WBC 22.9 H RBC Hgb Hct MCV 83 L MCH 27 L RDW Plt Count 468 H Lymph % (Auto) Lymph # (Auto) [place] # (Auto) Seg Neutrophils % Seg Neuts % (Manual) 89.0 H Lymphocytes % (Manual) 7.0 L Monocytes % (Manual) Basophils % (Manual) Seg Neutrophils # Seg Neutrophils # Man 20.4 H Lymphocytes # (Manual) Monocytes # (Manual) Eosinophils # (Manual) Basophils # (Manual) PT INR D-Dimer ABG pH POC ABG pCO2 POC ABG pO2 ABG pO2 ABG HCO3 ABG O2 Saturation ABG Base Excess ABG Hemoglobin ABG Oxyhemoglobin ABG Potassium 2.6 L ABG Glucose 142 H Oxyhemoglobin Carboxyhemoglobin Sodium Potassium 3.2 L Chloride Carbon Dioxide 18 L BUN Creatinine 0.2 L Glucose 114 H POC Glucose Calcium Ferritin Total Bilirubin Alkaline Phosphatase Lactate Dehydrogenase Total Creatine Kinase CK-MB (CK-2) Rel Index Troponin T C-Reactive Protein Total Protein Albumin 3.5 L Prealbumin LDL Cholesterol Direct Arterial Blood Glucose 142 H Arterial Blood Ionized Calcium Urine WBC (Auto) 02/26/20 02/26/20 02/26/20 15:58 17:00 23:43 WBC RBC Hgb Hct MCV MCH RDW Plt Count Lymph % (Auto) Lymph # (Auto) [place] # (Auto) Seg Neutrophils % Seg Neuts % (Manual) Lymphocytes % (Manual) Monocytes % (Manual) Basophils % (Manual) Seg Neutrophils # Seg Neutrophils # Man Lymphocytes # (Manual) Monocytes # (Manual) Eosinophils # (Manual) Basophils # (Manual) PT INR D-Dimer ABG pH 7.502 H POC ABG pCO2 POC ABG pO2 213.6 H ABG pO2 ABG HCO3 ABG O2 Saturation ABG Base Excess ABG Hemoglobin ABG Oxyhemoglobin 99.2 H ABG Potassium 2.9 L ABG Glucose 160 H Oxyhemoglobin Carboxyhemoglobin 0.4 L Sodium Potassium Chloride Carbon Dioxide BUN Creatinine Glucose POC Glucose 189 H 120 H Calcium Ferritin Total Bilirubin Alkaline Phosphatase Lactate Dehydrogenase Total Creatine Kinase CK-MB (CK-2) Rel Index Troponin T C-Reactive Protein Total Protein Albumin Prealbumin LDL Cholesterol Direct Arterial Blood Glucose 160 H Arterial Blood Ionized Calcium 4.5 L Urine WBC (Auto) 02/27/20 02/27/20 02/27/20 05:00 07:04 17:45 WBC RBC Hgb Hct MCV MCH RDW Plt Count Lymph % (Auto) Lymph # (Auto) [place] # (Auto) Seg Neutrophils % Seg Neuts % (Manual) Lymphocytes % (Manual) Monocytes % (Manual) Basophils % (Manual) Seg Neutrophils # Seg Neutrophils # Man Lymphocytes # (Manual) Monocytes # (Manual) Eosinophils # (Manual) Basophils # (Manual) PT INR D-Dimer ABG pH 7.524 H POC ABG pCO2 POC ABG pO2 ABG pO2 ABG HCO3 ABG O2 Saturation ABG Base Excess ABG Hemoglobin ABG Oxyhemoglobin ABG Potassium 3.0 L ABG Glucose 143 H Oxyhemoglobin Carboxyhemoglobin Sodium Potassium Chloride Carbon Dioxide BUN Creatinine Glucose POC Glucose 154 H 175 H Calcium Ferritin Total Bilirubin Alkaline Phosphatase Lactate Dehydrogenase Total Creatine Kinase CK-MB (CK-2) Rel Index Troponin T C-Reactive Protein Total Protein Albumin Prealbumin LDL Cholesterol Direct Arterial Blood Glucose 143 H Arterial Blood Ionized Calcium Urine WBC (Auto) 02/27/20 02/28/20 02/28/20 Unknown 00:21 04:15 WBC 18.7 H RBC Hgb Hct MCV MCH RDW Plt Count Lymph % (Auto) 8.7 L Lymph # (Auto) [place] # (Auto) 1.2 H Seg Neutrophils % 84.6 H Seg Neuts % (Manual) Lymphocytes % (Manual) Monocytes % (Manual) Basophils % (Manual) Seg Neutrophils # 15.9 H Seg Neutrophils # Man Lymphocytes # (Manual) Monocytes # (Manual) Eosinophils # (Manual) Basophils # (Manual) PT INR D-Dimer ABG pH POC ABG pCO2 POC ABG pO2 ABG pO2 ABG HCO3 ABG O2 Saturation ABG Base Excess ABG Hemoglobin ABG Oxyhemoglobin ABG Potassium ABG Glucose Oxyhemoglobin Carboxyhemoglobin Sodium Potassium 2.9 L* Chloride Carbon Dioxide 33 H D BUN Creatinine < 0.2 L Glucose 157 H POC Glucose 134 H Calcium Ferritin Total Bilirubin Alkaline Phosphatase Lactate Dehydrogenase Total Creatine Kinase CK-MB (CK-2) Rel Index Troponin T C-Reactive Protein Total Protein Albumin Prealbumin LDL Cholesterol Direct Arterial Blood Glucose Arterial Blood Ionized Calcium Urine WBC (Auto) 02/28/20 02/28/20 02/28/20 04:15 05:16 05:39 WBC RBC Hgb Hct MCV MCH RDW Plt Count Lymph % (Auto) Lymph # (Auto) [place] # (Auto) Seg Neutrophils % Seg Neuts % (Manual) Lymphocytes % (Manual) Monocytes % (Manual) Basophils % (Manual) Seg Neutrophils # Seg Neutrophils # Man Lymphocytes # (Manual) Monocytes # (Manual) Eosinophils # (Manual) Basophils # (Manual) PT INR D-Dimer ABG pH POC ABG pCO2 POC ABG pO2 ABG pO2 142.9 H ABG HCO3 34.1 H ABG O2 Saturation ABG Base Excess 8.3 H ABG Hemoglobin ABG Oxyhemoglobin ABG Potassium ABG Glucose Oxyhemoglobin Carboxyhemoglobin Sodium 151 H Potassium Chloride Carbon Dioxide 32 H BUN Creatinine 0.2 L Glucose 167 H POC Glucose 138 H Calcium Ferritin Total Bilirubin Alkaline Phosphatase Lactate Dehydrogenase Total Creatine Kinase CK-MB (CK-2) Rel Index Troponin T C-Reactive Protein Total Protein Albumin Prealbumin LDL Cholesterol Direct Arterial Blood Glucose Arterial Blood Ionized Calcium Urine WBC (Auto) 02/28/20 02/28/20 02/28/20 11:05 11:33 12:54 WBC RBC Hgb Hct MCV MCH RDW Plt Count Lymph % (Auto) Lymph # (Auto) [place] # (Auto) Seg Neutrophils % Seg Neuts % (Manual) Lymphocytes % (Manual) Monocytes % (Manual) Basophils % (Manual) Seg Neutrophils # Seg Neutrophils # Man Lymphocytes # (Manual) Monocytes # (Manual) Eosinophils # (Manual) Basophils # (Manual) PT INR D-Dimer ABG pH POC ABG pCO2 POC ABG pO2 ABG pO2 ABG HCO3 ABG O2 Saturation ABG Base Excess ABG Hemoglobin ABG Oxyhemoglobin ABG Potassium ABG Glucose Oxyhemoglobin Carboxyhemoglobin Sodium Potassium Chloride Carbon Dioxide BUN Creatinine Glucose POC Glucose 160 H Calcium Ferritin Total Bilirubin Alkaline Phosphatase Lactate Dehydrogenase Total Creatine Kinase CK-MB (CK-2) Rel Index Troponin T C-Reactive Protein 4.70 H Total Protein Albumin Prealbumin 0.090 L LDL Cholesterol Direct Arterial Blood Glucose Arterial Blood Ionized Calcium Urine WBC (Auto) 02/28/20 02/29/20 02/29/20 17:34 00:44 04:05 WBC 19.6 H RBC Hgb Hct MCV MCH 27 L RDW 15.4 H Plt Count Lymph % (Auto) Lymph # (Auto) [place] # (Auto) Seg Neutrophils % Seg Neuts % (Manual) 86.0 H Lymphocytes % (Manual) 7.0 L Monocytes % (Manual) Basophils % (Manual) Seg Neutrophils # Seg Neutrophils # Man 16.9 H Lymphocytes # (Manual) Monocytes # (Manual) 1.2 H Eosinophils # (Manual) Basophils # (Manual) PT INR D-Dimer ABG pH POC ABG pCO2 POC ABG pO2 ABG pO2 ABG HCO3 ABG O2 Saturation ABG Base Excess ABG Hemoglobin ABG Oxyhemoglobin ABG Potassium ABG Glucose Oxyhemoglobin Carboxyhemoglobin Sodium Potassium Chloride Carbon Dioxide BUN Creatinine Glucose POC Glucose 136 H 156 H Calcium Ferritin Total Bilirubin Alkaline Phosphatase Lactate Dehydrogenase Total Creatine Kinase CK-MB (CK-2) Rel Index Troponin T C-Reactive Protein Total Protein Albumin Prealbumin LDL Cholesterol Direct Arterial Blood Glucose Arterial Blood Ionized Calcium Urine WBC (Auto) 02/29/20 02/29/20 02/29/20 04:05 05:14 05:33 WBC RBC Hgb Hct MCV MCH RDW Plt Count Lymph % (Auto) Lymph # (Auto) [place] # (Auto) Seg Neutrophils % Seg Neuts % (Manual) Lymphocytes % (Manual) Monocytes % (Manual) Basophils % (Manual) Seg Neutrophils # Seg Neutrophils # Man Lymphocytes # (Manual) Monocytes # (Manual) Eosinophils # (Manual) Basophils # (Manual) PT INR D-Dimer ABG pH POC ABG pCO2 54.3 H POC ABG pO2 124.8 H ABG pO2 ABG HCO3 ABG O2 Saturation ABG Base Excess ABG Hemoglobin ABG Oxyhemoglobin ABG Potassium ABG Glucose 185 H Oxyhemoglobin Carboxyhemoglobin Sodium 148 H Potassium Chloride Carbon Dioxide 33 H BUN Creatinine < 0.2 L Glucose 173 H POC Glucose 152 H Calcium Ferritin Total Bilirubin Alkaline Phosphatase Lactate Dehydrogenase Total Creatine Kinase CK-MB (CK-2) Rel Index Troponin T C-Reactive Protein Total Protein Albumin Prealbumin LDL Cholesterol Direct Arterial Blood Glucose 185 H Arterial Blood Ionized Calcium Urine WBC (Auto) 03/01/20 03/01/20 03/01/20 00:00 03:45 04:33 WBC 23.1 H RBC Hgb Hct MCV MCH 27 L RDW 15.3 H Plt Count Lymph % (Auto) Lymph # (Auto) [place] # (Auto) Seg Neutrophils % Seg Neuts % (Manual) 92.0 H Lymphocytes % (Manual) 6.0 L Monocytes % (Manual) Basophils % (Manual) Seg Neutrophils # Seg Neutrophils # Man 21.3 H Lymphocytes # (Manual) Monocytes # (Manual) Eosinophils # (Manual) 0.5 H Basophils # (Manual) PT INR D-Dimer ABG pH 7.492 H POC ABG pCO2 POC ABG pO2 ABG pO2 157.1 H ABG HCO3 32.3 H ABG O2 Saturation ABG Base Excess 8.1 H ABG Hemoglobin 13.2 L ABG Oxyhemoglobin ABG Potassium ABG Glucose Oxyhemoglobin Carboxyhemoglobin Sodium Potassium Chloride Carbon Dioxide BUN Creatinine Glucose POC Glucose 109 H Calcium Ferritin Total Bilirubin Alkaline Phosphatase Lactate Dehydrogenase Total Creatine Kinase CK-MB (CK-2) Rel Index Troponin T C-Reactive Protein Total Protein Albumin Prealbumin LDL Cholesterol Direct Arterial Blood Glucose Arterial Blood Ionized Calcium Urine WBC (Auto) 03/01/20 03/01/20 03/01/20 04:33 05:29 12:32 WBC RBC Hgb Hct MCV MCH RDW Plt Count Lymph % (Auto) Lymph # (Auto) [place] # (Auto) Seg Neutrophils % Seg Neuts % (Manual) Lymphocytes % (Manual) Monocytes % (Manual) Basophils % (Manual) Seg Neutrophils # Seg Neutrophils # Man Lymphocytes # (Manual) Monocytes # (Manual) Eosinophils # (Manual) Basophils # (Manual) PT INR D-Dimer ABG pH POC ABG pCO2 POC ABG pO2 ABG pO2 ABG HCO3 ABG O2 Saturation ABG Base Excess ABG Hemoglobin ABG Oxyhemoglobin ABG Potassium ABG Glucose Oxyhemoglobin Carboxyhemoglobin Sodium 146 H Potassium Chloride Carbon Dioxide 32 H BUN Creatinine < 0.2 L Glucose 120 H POC Glucose 120 H 128 H Calcium Ferritin Total Bilirubin Alkaline Phosphatase Lactate Dehydrogenase Total Creatine Kinase CK-MB (CK-2) Rel Index Troponin T C-Reactive Protein Total Protein Albumin Prealbumin LDL Cholesterol Direct Arterial Blood Glucose Arterial Blood Ionized Calcium Urine WBC (Auto) 03/01/20 03/01/20 03/02/20 17:38 23:46 06:13 WBC RBC Hgb Hct MCV MCH RDW Plt Count Lymph % (Auto) Lymph # (Auto) [place] # (Auto) Seg Neutrophils % Seg Neuts % (Manual) Lymphocytes % (Manual) Monocytes % (Manual) Basophils % (Manual) Seg Neutrophils # Seg Neutrophils # Man Lymphocytes # (Manual) Monocytes # (Manual) Eosinophils # (Manual) Basophils # (Manual) PT INR D-Dimer ABG pH POC ABG pCO2 POC ABG pO2 ABG pO2 ABG HCO3 ABG O2 Saturation ABG Base Excess ABG Hemoglobin ABG Oxyhemoglobin ABG Potassium ABG Glucose Oxyhemoglobin Carboxyhemoglobin Sodium Potassium Chloride Carbon Dioxide BUN Creatinine Glucose POC Glucose 114 H 121 H 120 H Calcium Ferritin Total Bilirubin Alkaline Phosphatase Lactate Dehydrogenase Total Creatine Kinase CK-MB (CK-2) Rel Index Troponin T C-Reactive Protein Total Protein Albumin Prealbumin LDL Cholesterol Direct Arterial Blood Glucose Arterial Blood Ionized Calcium Urine WBC (Auto) 03/02/20 03/02/20 03/03/20 09:47 09:47 10:21 WBC 23.6 H RBC Hgb Hct MCV MCH RDW 15.3 H Plt Count 494 H Lymph % (Auto) Lymph # (Auto) [place] # (Auto) Seg Neutrophils % Seg Neuts % (Manual) 85.0 H Lymphocytes % (Manual) 6.0 L Monocytes % (Manual) Basophils % (Manual) Seg Neutrophils # Seg Neutrophils # Man 20.1 H Lymphocytes # (Manual) Monocytes # (Manual) 1.7 H Eosinophils # (Manual) Basophils # (Manual) PT INR D-Dimer ABG pH POC ABG pCO2 POC ABG pO2 ABG pO2 ABG HCO3 ABG O2 Saturation ABG Base Excess ABG Hemoglobin ABG Oxyhemoglobin ABG Potassium 3.3 L ABG Glucose 158 H Oxyhemoglobin Carboxyhemoglobin Sodium Potassium Chloride Carbon Dioxide BUN Creatinine < 0.2 L Glucose 177 H POC Glucose Calcium Ferritin Total Bilirubin Alkaline Phosphatase Lactate Dehydrogenase Total Creatine Kinase CK-MB (CK-2) Rel Index Troponin T C-Reactive Protein Total Protein Albumin Prealbumin LDL Cholesterol Direct Arterial Blood Glucose 158 H Arterial Blood Ionized Calcium Urine WBC (Auto) 03/03/20 03/04/20 03/04/20 21:30 00:00 12:23 WBC RBC Hgb Hct MCV MCH RDW Plt Count Lymph % (Auto) Lymph # (Auto) [place] # (Auto) Seg Neutrophils % Seg Neuts % (Manual) Lymphocytes % (Manual) Monocytes % (Manual) Basophils % (Manual) Seg Neutrophils # Seg Neutrophils # Man Lymphocytes # (Manual) Monocytes # (Manual) Eosinophils # (Manual) Basophils # (Manual) PT INR D-Dimer ABG pH 7.328 L POC ABG pCO2 POC ABG pO2 ABG pO2 68.4 L ABG HCO3 35.0 H ABG O2 Saturation 93.9 L ABG Base Excess 6.8 H ABG Hemoglobin 12.7 L ABG Oxyhemoglobin ABG Potassium ABG Glucose Oxyhemoglobin 91.9 L Carboxyhemoglobin Sodium Potassium Chloride Carbon Dioxide BUN Creatinine Glucose POC Glucose 187 H 163 H Calcium Ferritin Total Bilirubin Alkaline Phosphatase Lactate Dehydrogenase Total Creatine Kinase CK-MB (CK-2) Rel Index Troponin T C-Reactive Protein Total Protein Albumin Prealbumin LDL Cholesterol Direct Arterial Blood Glucose Arterial Blood Ionized Calcium Urine WBC (Auto) 03/04/20 03/04/20 03/05/20 18:15 21:30 06:02 WBC RBC Hgb Hct MCV MCH RDW Plt Count Lymph % (Auto) Lymph # (Auto) [place] # (Auto) Seg Neutrophils % Seg Neuts % (Manual) Lymphocytes % (Manual) Monocytes % (Manual) Basophils % (Manual) Seg Neutrophils # Seg Neutrophils # Man Lymphocytes # (Manual) Monocytes # (Manual) Eosinophils # (Manual) Basophils # (Manual) PT INR D-Dimer ABG pH 7.297 L POC ABG pCO2 POC ABG pO2 ABG pO2 ABG HCO3 41.0 H ABG O2 Saturation ABG Base Excess 11.0 H ABG Hemoglobin 13.1 L ABG Oxyhemoglobin ABG Potassium ABG Glucose Oxyhemoglobin 94.5 L Carboxyhemoglobin Sodium Potassium Chloride Carbon Dioxide BUN Creatinine Glucose POC Glucose 192 H 127 H Calcium Ferritin Total Bilirubin Alkaline Phosphatase Lactate Dehydrogenase Total Creatine Kinase CK-MB (CK-2) Rel Index Troponin T C-Reactive Protein Total Protein Albumin Prealbumin LDL Cholesterol Direct Arterial Blood Glucose Arterial Blood Ionized Calcium Urine WBC (Auto) 03/05/20 03/05/20 03/06/20 12:09 16:42 00:24 WBC RBC Hgb Hct MCV MCH RDW Plt Count Lymph % (Auto) Lymph # (Auto) [place] # (Auto) Seg Neutrophils % Seg Neuts % (Manual) Lymphocytes % (Manual) Monocytes % (Manual) Basophils % (Manual) Seg Neutrophils # Seg Neutrophils # Man Lymphocytes # (Manual) Monocytes # (Manual) Eosinophils # (Manual) Basophils # (Manual) PT INR D-Dimer ABG pH POC ABG pCO2 POC ABG pO2 ABG pO2 ABG HCO3 ABG O2 Saturation ABG Base Excess ABG Hemoglobin ABG Oxyhemoglobin ABG Potassium ABG Glucose Oxyhemoglobin Carboxyhemoglobin Sodium Potassium Chloride Carbon Dioxide BUN Creatinine Glucose POC Glucose 147 H 114 H 134 H Calcium Ferritin Total Bilirubin Alkaline Phosphatase Lactate Dehydrogenase Total Creatine Kinase CK-MB (CK-2) Rel Index Troponin T C-Reactive Protein Total Protein Albumin Prealbumin LDL Cholesterol Direct Arterial Blood Glucose Arterial Blood Ionized Calcium Urine WBC (Auto) 03/06/20 03/06/20 03/06/20 04:34 05:53 06:08 WBC 25.4 H RBC Hgb 10.5 L Hct 32.7 L MCV MCH 27 L RDW 15.3 H Plt Count 634 H Lymph % (Auto) Lymph # (Auto) [place] # (Auto) Seg Neutrophils % Seg Neuts % (Manual) 88.0 H Lymphocytes % (Manual) 2.0 L Monocytes % (Manual) 8.0 H Basophils % (Manual) Seg Neutrophils # Seg Neutrophils # Man 22.4 H Lymphocytes # (Manual) 0.5 L Monocytes # (Manual) 2.0 H Eosinophils # (Manual) Basophils # (Manual) PT INR D-Dimer ABG pH POC ABG pCO2 POC ABG pO2 ABG pO2 ABG HCO3 37.9 H ABG O2 Saturation ABG Base Excess 11.4 H ABG Hemoglobin 10.6 L ABG Oxyhemoglobin ABG Potassium ABG Glucose Oxyhemoglobin 94.7 L Carboxyhemoglobin Sodium Potassium Chloride Carbon Dioxide BUN Creatinine Glucose POC Glucose 135 H Calcium Ferritin Total Bilirubin Alkaline Phosphatase Lactate Dehydrogenase Total Creatine Kinase CK-MB (CK-2) Rel Index Troponin T C-Reactive Protein Total Protein Albumin Prealbumin LDL Cholesterol Direct Arterial Blood Glucose Arterial Blood Ionized Calcium Urine WBC (Auto) 03/06/20 03/06/20 03/06/20 06:08 12:19 19:10 WBC RBC Hgb Hct MCV MCH RDW Plt Count Lymph % (Auto) Lymph # (Auto) [place] # (Auto) Seg Neutrophils % Seg Neuts % (Manual) Lymphocytes % (Manual) Monocytes % (Manual) Basophils % (Manual) Seg Neutrophils # Seg Neutrophils # Man Lymphocytes # (Manual) Monocytes # (Manual) Eosinophils # (Manual) Basophils # (Manual) PT INR D-Dimer ABG pH POC ABG pCO2 POC ABG pO2 ABG pO2 ABG HCO3 ABG O2 Saturation ABG Base Excess ABG Hemoglobin ABG Oxyhemoglobin ABG Potassium ABG Glucose Oxyhemoglobin Carboxyhemoglobin Sodium 150 H D Potassium Chloride Carbon Dioxide 39 H D BUN 23 H Creatinine < 0.2 L Glucose 144 H POC Glucose 169 H 152 H Calcium Ferritin Total Bilirubin Alkaline Phosphatase Lactate Dehydrogenase Total Creatine Kinase CK-MB (CK-2) Rel Index Troponin T C-Reactive Protein Total Protein Albumin 3.3 L Prealbumin LDL Cholesterol Direct Arterial Blood Glucose Arterial Blood Ionized Calcium Urine WBC (Auto) 03/06/20 03/07/20 03/07/20 23:58 04:25 04:25 WBC 22.1 H RBC Hgb 10.9 L Hct 32.9 L MCV MCH RDW 15.5 H Plt Count 739 H Lymph % (Auto) 7.8 L Lymph # (Auto) [place] # (Auto) 1.3 H Seg Neutrophils % 85.5 H Seg Neuts % (Manual) Lymphocytes % (Manual) Monocytes % (Manual) Basophils % (Manual) Seg Neutrophils # 18.9 H Seg Neutrophils # Man Lymphocytes # (Manual) Monocytes # (Manual) Eosinophils # (Manual) Basophils # (Manual) PT INR D-Dimer ABG pH POC ABG pCO2 POC ABG pO2 ABG pO2 ABG HCO3 ABG O2 Saturation ABG Base Excess ABG Hemoglobin ABG Oxyhemoglobin ABG Potassium ABG Glucose Oxyhemoglobin Carboxyhemoglobin Sodium 146 H Potassium Chloride Carbon Dioxide 37 H BUN Creatinine < 0.2 L Glucose 118 H POC Glucose 111 H Calcium Ferritin Total Bilirubin Alkaline Phosphatase Lactate Dehydrogenase Total Creatine Kinase CK-MB (CK-2) Rel Index Troponin T C-Reactive Protein Total Protein Albumin 3.7 L Prealbumin LDL Cholesterol Direct Arterial Blood Glucose Arterial Blood Ionized Calcium Urine WBC (Auto) 03/07/20 03/07/20 03/07/20 05:20 17:45 23:32 WBC RBC Hgb Hct MCV MCH RDW Plt Count Lymph % (Auto) Lymph # (Auto) [place] # (Auto) Seg Neutrophils % Seg Neuts % (Manual) Lymphocytes % (Manual) Monocytes % (Manual) Basophils % (Manual) Seg Neutrophils # Seg Neutrophils # Man Lymphocytes # (Manual) Monocytes # (Manual) Eosinophils # (Manual) Basophils # (Manual) PT INR D-Dimer ABG pH POC ABG pCO2 POC ABG pO2 ABG pO2 ABG HCO3 ABG O2 Saturation ABG Base Excess ABG Hemoglobin ABG Oxyhemoglobin ABG Potassium ABG Glucose Oxyhemoglobin Carboxyhemoglobin Sodium Potassium Chloride Carbon Dioxide BUN Creatinine Glucose POC Glucose 113 H 124 H 210 H Calcium Ferritin Total Bilirubin Alkaline Phosphatase Lactate Dehydrogenase Total Creatine Kinase CK-MB (CK-2) Rel Index Troponin T C-Reactive Protein Total Protein Albumin Prealbumin LDL Cholesterol Direct Arterial Blood Glucose Arterial Blood Ionized Calcium Urine WBC (Auto) 03/08/20 03/08/20 03/08/20 05:35 06:43 06:43 WBC 28.9 H RBC 3.53 L Hgb 9.7 L Hct 30.3 L MCV MCH RDW 15.6 H Plt Count 578 H Lymph % (Auto) Lymph # (Auto) [place] # (Auto) Seg Neutrophils % Seg Neuts % (Manual) 93.0 H Lymphocytes % (Manual) 4.0 L Monocytes % (Manual) Basophils % (Manual) Seg Neutrophils # Seg Neutrophils # Man 26.9 H Lymphocytes # (Manual) Monocytes # (Manual) Eosinophils # (Manual) Basophils # (Manual) PT INR D-Dimer ABG pH POC ABG pCO2 POC ABG pO2 ABG pO2 ABG HCO3 ABG O2 Saturation ABG Base Excess ABG Hemoglobin ABG Oxyhemoglobin ABG Potassium ABG Glucose Oxyhemoglobin Carboxyhemoglobin Sodium 146 H Potassium Chloride Carbon Dioxide 35 H BUN 34 H Creatinine 0.3 L D Glucose 125 H POC Glucose 147 H Calcium Ferritin Total Bilirubin Alkaline Phosphatase Lactate Dehydrogenase Total Creatine Kinase CK-MB (CK-2) Rel Index Troponin T C-Reactive Protein Total Protein 5.9 L Albumin 3.2 L Prealbumin LDL Cholesterol Direct Arterial Blood Glucose Arterial Blood Ionized Calcium Urine WBC (Auto) 03/08/20 03/08/20 03/08/20 08:57 11:14 12:34 WBC RBC Hgb Hct MCV MCH RDW Plt Count Lymph % (Auto) Lymph # (Auto) [place] # (Auto) Seg Neutrophils % Seg Neuts % (Manual) Lymphocytes % (Manual) Monocytes % (Manual) Basophils % (Manual) Seg Neutrophils # Seg Neutrophils # Man Lymphocytes # (Manual) Monocytes # (Manual) Eosinophils # (Manual) Basophils # (Manual) PT INR D-Dimer ABG pH POC ABG pCO2 63.1 H POC ABG pO2 ABG pO2 ABG HCO3 ABG O2 Saturation ABG Base Excess ABG Hemoglobin 10.9 L ABG Oxyhemoglobin ABG Potassium ABG Glucose 176 H Oxyhemoglobin Carboxyhemoglobin Sodium Potassium Chloride Carbon Dioxide BUN Creatinine Glucose POC Glucose 171 H Calcium Ferritin Total Bilirubin Alkaline Phosphatase Lactate Dehydrogenase Total Creatine Kinase CK-MB (CK-2) Rel Index Troponin T C-Reactive Protein Total Protein Albumin Prealbumin LDL Cholesterol Direct Arterial Blood Glucose 176 H Arterial Blood Ionized Calcium 4.5 L Urine WBC (Auto) 10.0 H 03/08/20 03/08/20 03/09/20 18:02 23:43 05:49 WBC RBC Hgb Hct MCV MCH RDW Plt Count Lymph % (Auto) Lymph # (Auto) [place] # (Auto) Seg Neutrophils % Seg Neuts % (Manual) Lymphocytes % (Manual) Monocytes % (Manual) Basophils % (Manual) Seg Neutrophils # Seg Neutrophils # Man Lymphocytes # (Manual) Monocytes # (Manual) Eosinophils # (Manual) Basophils # (Manual) PT INR D-Dimer ABG pH POC ABG pCO2 POC ABG pO2 ABG pO2 ABG HCO3 ABG O2 Saturation ABG Base Excess ABG Hemoglobin ABG Oxyhemoglobin ABG Potassium ABG Glucose Oxyhemoglobin Carboxyhemoglobin Sodium Potassium Chloride Carbon Dioxide BUN Creatinine Glucose POC Glucose 157 H 134 H 163 H Calcium Ferritin Total Bilirubin Alkaline Phosphatase Lactate Dehydrogenase Total Creatine Kinase CK-MB (CK-2) Rel Index Troponin T C-Reactive Protein Total Protein Albumin Prealbumin LDL Cholesterol Direct Arterial Blood Glucose Arterial Blood Ionized Calcium Urine WBC (Auto) 03/09/20 03/09/20 03/09/20 08:35 08:35 12:11 WBC 23.4 H RBC 3.36 L Hgb 9.3 L Hct 28.8 L MCV MCH RDW 15.9 H Plt Count 521 H Lymph % (Auto) Lymph # (Auto) [place] # (Auto) Seg Neutrophils % Seg Neuts % (Manual) 87.0 H Lymphocytes % (Manual) 4.0 L Monocytes % (Manual) 9.0 H Basophils % (Manual) Seg Neutrophils # Seg Neutrophils # Man 20.4 H Lymphocytes # (Manual) 0.9 L Monocytes # (Manual) 2.1 H Eosinophils # (Manual) Basophils # (Manual) PT INR D-Dimer ABG pH POC ABG pCO2 POC ABG pO2 ABG pO2 ABG HCO3 ABG O2 Saturation ABG Base Excess ABG Hemoglobin ABG Oxyhemoglobin ABG Potassium ABG Glucose Oxyhemoglobin Carboxyhemoglobin Sodium 147 H Potassium Chloride Carbon Dioxide 37 H BUN 63 H Creatinine Glucose 154 H POC Glucose 128 H Calcium Ferritin Total Bilirubin Alkaline Phosphatase Lactate Dehydrogenase Total Creatine Kinase CK-MB (CK-2) Rel Index Troponin T C-Reactive Protein Total Protein Albumin Prealbumin LDL Cholesterol Direct Arterial Blood Glucose Arterial Blood Ionized Calcium Urine WBC (Auto) 03/09/20 03/10/20 03/10/20 17:51 00:25 05:41 WBC RBC Hgb Hct MCV MCH RDW Plt Count Lymph % (Auto) Lymph # (Auto) [place] # (Auto) Seg Neutrophils % Seg Neuts % (Manual) Lymphocytes % (Manual) Monocytes % (Manual) Basophils % (Manual) Seg Neutrophils # Seg Neutrophils # Man Lymphocytes # (Manual) Monocytes # (Manual) Eosinophils # (Manual) Basophils # (Manual) PT INR D-Dimer ABG pH POC ABG pCO2 POC ABG pO2 ABG pO2 ABG HCO3 ABG O2 Saturation ABG Base Excess ABG Hemoglobin ABG Oxyhemoglobin ABG Potassium ABG Glucose Oxyhemoglobin Carboxyhemoglobin Sodium Potassium Chloride Carbon Dioxide BUN Creatinine Glucose POC Glucose 127 H 128 H 153 H Calcium Ferritin Total Bilirubin Alkaline Phosphatase Lactate Dehydrogenase Total Creatine Kinase CK-MB (CK-2) Rel Index Troponin T C-Reactive Protein Total Protein Albumin Prealbumin LDL Cholesterol Direct Arterial Blood Glucose Arterial Blood Ionized Calcium Urine WBC (Auto) 03/10/20 03/10/20 03/10/20 06:14 06:14 12:02 WBC 18.3 H RBC 3.45 L Hgb 9.5 L Hct 29.5 L MCV MCH RDW 16.1 H Plt Count 494 H Lymph % (Auto) Lymph # (Auto) [place] # (Auto) Seg Neutrophils % Seg Neuts % (Manual) 95.0 H Lymphocytes % (Manual) 1.0 L Monocytes % (Manual) Basophils % (Manual) Seg Neutrophils # Seg Neutrophils # Man 17.4 H Lymphocytes # (Manual) 0.2 L Monocytes # (Manual) Eosinophils # (Manual) Basophils # (Manual) PT INR D-Dimer ABG pH POC ABG pCO2 POC ABG pO2 ABG pO2 ABG HCO3 ABG O2 Saturation ABG Base Excess ABG Hemoglobin ABG Oxyhemoglobin ABG Potassium ABG Glucose Oxyhemoglobin Carboxyhemoglobin Sodium 149 H Potassium Chloride Carbon Dioxide 35 H BUN 34 H Creatinine 0.2 L D Glucose 177 H POC Glucose 151 H Calcium Ferritin Total Bilirubin Alkaline Phosphatase Lactate Dehydrogenase Total Creatine Kinase CK-MB (CK-2) Rel Index Troponin T C-Reactive Protein Total Protein Albumin Prealbumin LDL Cholesterol Direct Arterial Blood Glucose Arterial Blood Ionized Calcium Urine WBC (Auto) 03/10/20 03/10/20 03/11/20 17:41 23:53 05:02 WBC RBC Hgb Hct MCV MCH RDW Plt Count Lymph % (Auto) Lymph # (Auto) [place] # (Auto) Seg Neutrophils % Seg Neuts % (Manual) Lymphocytes % (Manual) Monocytes % (Manual) Basophils % (Manual) Seg Neutrophils # Seg Neutrophils # Man Lymphocytes # (Manual) Monocytes # (Manual) Eosinophils # (Manual) Basophils # (Manual) PT INR D-Dimer ABG pH POC ABG pCO2 POC ABG pO2 ABG pO2 ABG HCO3 ABG O2 Saturation ABG Base Excess ABG Hemoglobin ABG Oxyhemoglobin ABG Potassium ABG Glucose Oxyhemoglobin Carboxyhemoglobin Sodium Potassium Chloride Carbon Dioxide BUN Creatinine Glucose POC Glucose 168 H 142 H 146 H Calcium Ferritin Total Bilirubin Alkaline Phosphatase Lactate Dehydrogenase Total Creatine Kinase CK-MB (CK-2) Rel Index Troponin T C-Reactive Protein Total Protein Albumin Prealbumin LDL Cholesterol Direct Arterial Blood Glucose Arterial Blood Ionized Calcium Urine WBC (Auto) 03/11/20 03/11/20 03/11/20 11:30 14:01 14:01 WBC 19.7 H RBC 3.04 L Hgb 8.7 L Hct 25.8 L MCV MCH RDW 15.6 H Plt Count Lymph % (Auto) Lymph # (Auto) [place] # (Auto) Seg Neutrophils % Seg Neuts % (Manual) Lymphocytes % (Manual) Monocytes % (Manual) Basophils % (Manual) Seg Neutrophils # Seg Neutrophils # Man Lymphocytes # (Manual) Monocytes # (Manual) Eosinophils # (Manual) Basophils # (Manual) PT INR D-Dimer ABG pH POC ABG pCO2 POC ABG pO2 ABG pO2 ABG HCO3 ABG O2 Saturation ABG Base Excess ABG Hemoglobin ABG Oxyhemoglobin ABG Potassium ABG Glucose Oxyhemoglobin Carboxyhemoglobin Sodium 151 H Potassium Chloride Carbon Dioxide 37 H BUN Creatinine < 0.2 L Glucose 171 H POC Glucose 248 H Calcium Ferritin Total Bilirubin Alkaline Phosphatase Lactate Dehydrogenase Total Creatine Kinase CK-MB (CK-2) Rel Index Troponin T C-Reactive Protein Total Protein Albumin Prealbumin LDL Cholesterol Direct Arterial Blood Glucose Arterial Blood Ionized Calcium Urine WBC (Auto) 03/11/20 03/11/20 03/12/20 17:09 23:52 04:39 WBC 19.9 H RBC 3.16 L Hgb 8.9 L Hct 27.5 L MCV MCH RDW 15.7 H Plt Count Lymph % (Auto) 6.8 L Lymph # (Auto) [place] # (Auto) 1.2 H Seg Neutrophils % 86.0 H Seg Neuts % (Manual) Lymphocytes % (Manual) Monocytes % (Manual) Basophils % (Manual) Seg Neutrophils # 17.1 H Seg Neutrophils # Man Lymphocytes # (Manual) Monocytes # (Manual) Eosinophils # (Manual) Basophils # (Manual) PT INR D-Dimer ABG pH POC ABG pCO2 POC ABG pO2 ABG pO2 ABG HCO3 ABG O2 Saturation ABG Base Excess ABG Hemoglobin ABG Oxyhemoglobin ABG Potassium ABG Glucose Oxyhemoglobin Carboxyhemoglobin Sodium Potassium Chloride Carbon Dioxide BUN Creatinine Glucose POC Glucose 124 H 131 H Calcium Ferritin Total Bilirubin Alkaline Phosphatase Lactate Dehydrogenase Total Creatine Kinase CK-MB (CK-2) Rel Index Troponin T C-Reactive Protein Total Protein Albumin Prealbumin LDL Cholesterol Direct Arterial Blood Glucose Arterial Blood Ionized Calcium Urine WBC (Auto) 03/12/20 03/12/20 03/12/20 04:39 05:28 11:34 WBC RBC Hgb Hct MCV MCH RDW Plt Count Lymph % (Auto) Lymph # (Auto) [place] # (Auto) Seg Neutrophils % Seg Neuts % (Manual) Lymphocytes % (Manual) Monocytes % (Manual) Basophils % (Manual) Seg Neutrophils # Seg Neutrophils # Man Lymphocytes # (Manual) Monocytes # (Manual) Eosinophils # (Manual) Basophils # (Manual) PT INR D-Dimer ABG pH POC ABG pCO2 POC ABG pO2 ABG pO2 ABG HCO3 ABG O2 Saturation ABG Base Excess ABG Hemoglobin ABG Oxyhemoglobin ABG Potassium ABG Glucose Oxyhemoglobin Carboxyhemoglobin Sodium 147 H Potassium Chloride Carbon Dioxide 40 H BUN Creatinine < 0.2 L Glucose 175 H POC Glucose 167 H 144 H Calcium Ferritin Total Bilirubin Alkaline Phosphatase Lactate Dehydrogenase Total Creatine Kinase CK-MB (CK-2) Rel Index Troponin T C-Reactive Protein Total Protein Albumin Prealbumin LDL Cholesterol Direct Arterial Blood Glucose Arterial Blood Ionized Calcium Urine WBC (Auto) 03/12/20 03/12/20 03/13/20 17:32 23:57 05:57 WBC RBC Hgb Hct MCV MCH RDW Plt Count Lymph % (Auto) Lymph # (Auto) [place] # (Auto) Seg Neutrophils % Seg Neuts % (Manual) Lymphocytes % (Manual) Monocytes % (Manual) Basophils % (Manual) Seg Neutrophils # Seg Neutrophils # Man Lymphocytes # (Manual) Monocytes # (Manual) Eosinophils # (Manual) Basophils # (Manual) PT INR D-Dimer ABG pH POC ABG pCO2 POC ABG pO2 ABG pO2 ABG HCO3 ABG O2 Saturation ABG Base Excess ABG Hemoglobin ABG Oxyhemoglobin ABG Potassium ABG Glucose Oxyhemoglobin Carboxyhemoglobin Sodium Potassium Chloride Carbon Dioxide BUN Creatinine Glucose POC Glucose 141 H 137 H 161 H Calcium Ferritin Total Bilirubin Alkaline Phosphatase Lactate Dehydrogenase Total Creatine Kinase CK-MB (CK-2) Rel Index Troponin T C-Reactive Protein Total Protein Albumin Prealbumin LDL Cholesterol Direct Arterial Blood Glucose Arterial Blood Ionized Calcium Urine WBC (Auto) 03/13/20 03/13/20 03/13/20 12:28 14:14 18:39 WBC RBC Hgb Hct MCV MCH RDW Plt Count Lymph % (Auto) Lymph # (Auto) [place] # (Auto) Seg Neutrophils % Seg Neuts % (Manual) Lymphocytes % (Manual) Monocytes % (Manual) Basophils % (Manual) Seg Neutrophils # Seg Neutrophils # Man Lymphocytes # (Manual) Monocytes # (Manual) Eosinophils # (Manual) Basophils # (Manual) PT INR D-Dimer ABG pH POC ABG pCO2 POC ABG pO2 ABG pO2 ABG HCO3 ABG O2 Saturation ABG Base Excess ABG Hemoglobin ABG Oxyhemoglobin ABG Potassium ABG Glucose Oxyhemoglobin Carboxyhemoglobin Sodium Potassium Chloride Carbon Dioxide 39 H BUN Creatinine < 0.2 L Glucose 129 H POC Glucose 130 H 125 H Calcium Ferritin Total Bilirubin Alkaline Phosphatase Lactate Dehydrogenase Total Creatine Kinase CK-MB (CK-2) Rel Index Troponin T C-Reactive Protein Total Protein Albumin Prealbumin LDL Cholesterol Direct Arterial Blood Glucose Arterial Blood Ionized Calcium Urine WBC (Auto) 03/13/20 03/14/20 03/14/20 23:33 05:24 08:07 WBC 16.8 H RBC 2.81 L Hgb 7.9 L Hct 23.9 L MCV MCH RDW 15.9 H Plt Count Lymph % (Auto) Lymph # (Auto) [place] # (Auto) Seg Neutrophils % Seg Neuts % (Manual) 84.0 H Lymphocytes % (Manual) 10.0 L Monocytes % (Manual) Basophils % (Manual) Seg Neutrophils # Seg Neutrophils # Man 14.1 H Lymphocytes # (Manual) Monocytes # (Manual) Eosinophils # (Manual) Basophils # (Manual) PT INR D-Dimer ABG pH POC ABG pCO2 POC ABG pO2 ABG pO2 ABG HCO3 ABG O2 Saturation ABG Base Excess ABG Hemoglobin ABG Oxyhemoglobin ABG Potassium ABG Glucose Oxyhemoglobin Carboxyhemoglobin Sodium Potassium Chloride Carbon Dioxide BUN Creatinine Glucose POC Glucose 146 H 125 H Calcium Ferritin Total Bilirubin Alkaline Phosphatase Lactate Dehydrogenase Total Creatine Kinase CK-MB (CK-2) Rel Index Troponin T C-Reactive Protein Total Protein Albumin Prealbumin LDL Cholesterol Direct Arterial Blood Glucose Arterial Blood Ionized Calcium Urine WBC (Auto) 03/14/20 03/14/20 03/14/20 08:07 12:21 18:26 WBC RBC Hgb Hct MCV MCH RDW Plt Count Lymph % (Auto) Lymph # (Auto) [place] # (Auto) Seg Neutrophils % Seg Neuts % (Manual) Lymphocytes % (Manual) Monocytes % (Manual) Basophils % (Manual) Seg Neutrophils # Seg Neutrophils # Man Lymphocytes # (Manual) Monocytes # (Manual) Eosinophils # (Manual) Basophils # (Manual) PT INR D-Dimer ABG pH POC ABG pCO2 POC ABG pO2 ABG pO2 ABG HCO3 ABG O2 Saturation ABG Base Excess ABG Hemoglobin ABG Oxyhemoglobin ABG Potassium ABG Glucose Oxyhemoglobin Carboxyhemoglobin Sodium Potassium Chloride 97.0 L Carbon Dioxide 37 H BUN Creatinine < 0.2 L Glucose 129 H POC Glucose 109 H 142 H Calcium 8.3 L Ferritin Total Bilirubin Alkaline Phosphatase Lactate Dehydrogenase Total Creatine Kinase CK-MB (CK-2) Rel Index Troponin T C-Reactive Protein Total Protein Albumin Prealbumin LDL Cholesterol Direct Arterial Blood Glucose Arterial Blood Ionized Calcium Urine WBC (Auto) 03/14/20 03/15/20 03/15/20 23:57 05:46 08:06 WBC 19.7 H RBC 3.29 L Hgb 9.1 L Hct 28.0 L MCV MCH RDW 15.9 H Plt Count Lymph % (Auto) Lymph # (Auto) [place] # (Auto) Seg Neutrophils % Seg Neuts % (Manual) Lymphocytes % (Manual) Monocytes % (Manual) Basophils % (Manual) Seg Neutrophils # Seg Neutrophils # Man Lymphocytes # (Manual) Monocytes # (Manual) Eosinophils # (Manual) Basophils # (Manual) PT INR D-Dimer ABG pH POC ABG pCO2 POC ABG pO2 ABG pO2 ABG HCO3 ABG O2 Saturation ABG Base Excess ABG Hemoglobin ABG Oxyhemoglobin ABG Potassium ABG Glucose Oxyhemoglobin Carboxyhemoglobin Sodium Potassium Chloride Carbon Dioxide BUN Creatinine Glucose POC Glucose 157 H 118 H Calcium Ferritin Total Bilirubin Alkaline Phosphatase Lactate Dehydrogenase Total Creatine Kinase CK-MB (CK-2) Rel Index Troponin T C-Reactive Protein Total Protein Albumin Prealbumin LDL Cholesterol Direct Arterial Blood Glucose Arterial Blood Ionized Calcium Urine WBC (Auto) 03/15/20 03/15/20 03/15/20 08:06 12:44 18:09 WBC RBC Hgb Hct MCV MCH RDW Plt Count Lymph % (Auto) Lymph # (Auto) [place] # (Auto) Seg Neutrophils % Seg Neuts % (Manual) Lymphocytes % (Manual) Monocytes % (Manual) Basophils % (Manual) Seg Neutrophils # Seg Neutrophils # Man Lymphocytes # (Manual) Monocytes # (Manual) Eosinophils # (Manual) Basophils # (Manual) PT INR D-Dimer ABG pH POC ABG pCO2 POC ABG pO2 ABG pO2 ABG HCO3 ABG O2 Saturation ABG Base Excess ABG Hemoglobin ABG Oxyhemoglobin ABG Potassium ABG Glucose Oxyhemoglobin Carboxyhemoglobin Sodium 136 L Potassium Chloride 93.6 L Carbon Dioxide 37 H BUN Creatinine < 0.2 L Glucose 132 H POC Glucose 151 H 164 H Calcium Ferritin Total Bilirubin Alkaline Phosphatase Lactate Dehydrogenase Total Creatine Kinase CK-MB (CK-2) Rel Index Troponin T C-Reactive Protein Total Protein Albumin Prealbumin LDL Cholesterol Direct Arterial Blood Glucose Arterial Blood Ionized Calcium Urine WBC (Auto) 03/15/20 03/16/20 03/16/20 23:26 05:39 11:58 WBC RBC Hgb Hct MCV MCH RDW Plt Count Lymph % (Auto) Lymph # (Auto) [place] # (Auto) Seg Neutrophils % Seg Neuts % (Manual) Lymphocytes % (Manual) Monocytes % (Manual) Basophils % (Manual) Seg Neutrophils # Seg Neutrophils # Man Lymphocytes # (Manual) Monocytes # (Manual) Eosinophils # (Manual) Basophils # (Manual) PT INR D-Dimer ABG pH POC ABG pCO2 POC ABG pO2 ABG pO2 ABG HCO3 ABG O2 Saturation ABG Base Excess ABG Hemoglobin ABG Oxyhemoglobin ABG Potassium ABG Glucose Oxyhemoglobin Carboxyhemoglobin Sodium Potassium Chloride Carbon Dioxide BUN Creatinine Glucose POC Glucose 136 H 116 H 109 H Calcium Ferritin Total Bilirubin Alkaline Phosphatase Lactate Dehydrogenase Total Creatine Kinase CK-MB (CK-2) Rel Index Troponin T C-Reactive Protein Total Protein Albumin Prealbumin LDL Cholesterol Direct Arterial Blood Glucose Arterial Blood Ionized Calcium Urine WBC (Auto) 03/16/20 03/17/20 03/17/20 23:56 04:40 04:40 WBC 18.0 H RBC 3.33 L Hgb 9.5 L Hct 28.8 L MCV MCH RDW 16.4 H Plt Count 499 H Lymph % (Auto) Lymph # (Auto) [place] # (Auto) Seg Neutrophils % Seg Neuts % (Manual) 82.0 H Lymphocytes % (Manual) 8.0 L Monocytes % (Manual) Basophils % (Manual) Seg Neutrophils # Seg Neutrophils # Man 14.8 H Lymphocytes # (Manual) Monocytes # (Manual) 1.3 H Eosinophils # (Manual) Basophils # (Manual) 0.2 H PT INR D-Dimer ABG pH POC ABG pCO2 POC ABG pO2 ABG pO2 ABG HCO3 ABG O2 Saturation ABG Base Excess ABG Hemoglobin ABG Oxyhemoglobin ABG Potassium ABG Glucose Oxyhemoglobin Carboxyhemoglobin Sodium Potassium Chloride 97.7 L Carbon Dioxide 32 H BUN Creatinine < 0.2 L Glucose 114 H POC Glucose 131 H Calcium Ferritin Total Bilirubin Alkaline Phosphatase Lactate Dehydrogenase Total Creatine Kinase CK-MB (CK-2) Rel Index Troponin T C-Reactive Protein Total Protein Albumin Prealbumin LDL Cholesterol Direct Arterial Blood Glucose Arterial Blood Ionized Calcium Urine WBC (Auto) 03/18/20 03/18/20 03/18/20 00:21 05:21 11:55 WBC RBC Hgb Hct MCV MCH RDW Plt Count Lymph % (Auto) Lymph # (Auto) [place] # (Auto) Seg Neutrophils % Seg Neuts % (Manual) Lymphocytes % (Manual) Monocytes % (Manual) Basophils % (Manual) Seg Neutrophils # Seg Neutrophils # Man Lymphocytes # (Manual) Monocytes # (Manual) Eosinophils # (Manual) Basophils # (Manual) PT INR D-Dimer ABG pH POC ABG pCO2 POC ABG pO2 ABG pO2 ABG HCO3 ABG O2 Saturation ABG Base Excess ABG Hemoglobin ABG Oxyhemoglobin ABG Potassium ABG Glucose Oxyhemoglobin Carboxyhemoglobin Sodium Potassium Chloride Carbon Dioxide BUN Creatinine Glucose POC Glucose 124 H 138 H 119 H Calcium Ferritin Total Bilirubin Alkaline Phosphatase Lactate Dehydrogenase Total Creatine Kinase CK-MB (CK-2) Rel Index Troponin T C-Reactive Protein Total Protein Albumin Prealbumin LDL Cholesterol Direct Arterial Blood Glucose Arterial Blood Ionized Calcium Urine WBC (Auto) 03/18/20 03/18/20 03/19/20 17:03 23:58 05:24 WBC RBC Hgb Hct MCV MCH RDW Plt Count Lymph % (Auto) Lymph # (Auto) [place] # (Auto) Seg Neutrophils % Seg Neuts % (Manual) Lymphocytes % (Manual) Monocytes % (Manual) Basophils % (Manual) Seg Neutrophils # Seg Neutrophils # Man Lymphocytes # (Manual) Monocytes # (Manual) Eosinophils # (Manual) Basophils # (Manual) PT INR D-Dimer ABG pH POC ABG pCO2 POC ABG pO2 ABG pO2 ABG HCO3 ABG O2 Saturation ABG Base Excess ABG Hemoglobin ABG Oxyhemoglobin ABG Potassium ABG Glucose Oxyhemoglobin Carboxyhemoglobin Sodium Potassium Chloride Carbon Dioxide BUN Creatinine Glucose POC Glucose 128 H 128 H 115 H Calcium Ferritin Total Bilirubin Alkaline Phosphatase Lactate Dehydrogenase Total Creatine Kinase CK-MB (CK-2) Rel Index Troponin T C-Reactive Protein Total Protein Albumin Prealbumin LDL Cholesterol Direct Arterial Blood Glucose Arterial Blood Ionized Calcium Urine WBC (Auto) 03/19/20 03/19/20 03/19/20 08:05 08:05 11:56 WBC 16.8 H RBC 3.36 L Hgb 9.4 L Hct 28.8 L MCV MCH RDW 17.4 H Plt Count 567 H Lymph % (Auto) 7.8 L Lymph # (Auto) [place] # (Auto) 1.2 H Seg Neutrophils % 83.5 H Seg Neuts % (Manual) Lymphocytes % (Manual) Monocytes % (Manual) Basophils % (Manual) Seg Neutrophils # 14.1 H Seg Neutrophils # Man Lymphocytes # (Manual) Monocytes # (Manual) Eosinophils # (Manual) Basophils # (Manual) PT INR D-Dimer ABG pH POC ABG pCO2 POC ABG pO2 ABG pO2 ABG HCO3 ABG O2 Saturation ABG Base Excess ABG Hemoglobin ABG Oxyhemoglobin ABG Potassium ABG Glucose Oxyhemoglobin Carboxyhemoglobin Sodium Potassium Chloride Carbon Dioxide 36 H BUN Creatinine < 0.2 L Glucose 135 H POC Glucose 128 H Calcium Ferritin Total Bilirubin Alkaline Phosphatase Lactate Dehydrogenase Total Creatine Kinase CK-MB (CK-2) Rel Index Troponin T C-Reactive Protein Total Protein Albumin Prealbumin LDL Cholesterol Direct Arterial Blood Glucose Arterial Blood Ionized Calcium Urine WBC (Auto) 03/19/20 03/20/20 03/20/20 23:59 05:12 16:52 WBC RBC Hgb Hct MCV MCH RDW Plt Count Lymph % (Auto) Lymph # (Auto) [place] # (Auto) Seg Neutrophils % Seg Neuts % (Manual) Lymphocytes % (Manual) Monocytes % (Manual) Basophils % (Manual) Seg Neutrophils # Seg Neutrophils # Man Lymphocytes # (Manual) Monocytes # (Manual) Eosinophils # (Manual) Basophils # (Manual) PT INR D-Dimer ABG pH POC ABG pCO2 POC ABG pO2 ABG pO2 ABG HCO3 ABG O2 Saturation ABG Base Excess ABG Hemoglobin ABG Oxyhemoglobin ABG Potassium ABG Glucose Oxyhemoglobin Carboxyhemoglobin Sodium Potassium Chloride Carbon Dioxide BUN Creatinine Glucose POC Glucose 120 H 131 H 124 H Calcium Ferritin Total Bilirubin Alkaline Phosphatase Lactate Dehydrogenase Total Creatine Kinase CK-MB (CK-2) Rel Index Troponin T C-Reactive Protein Total Protein Albumin Prealbumin LDL Cholesterol Direct Arterial Blood Glucose Arterial Blood Ionized Calcium Urine WBC (Auto) 03/20/20 03/21/20 03/21/20 23:35 04:50 07:35 WBC 15.2 H RBC 3.39 L Hgb 9.4 L Hct 29.4 L MCV MCH RDW 17.6 H Plt Count 518 H Lymph % (Auto) Lymph # (Auto) [place] # (Auto) Seg Neutrophils % Seg Neuts % (Manual) 83.0 H Lymphocytes % (Manual) 10.0 L Monocytes % (Manual) Basophils % (Manual) 2.0 H Seg Neutrophils # Seg Neutrophils # Man 12.6 H Lymphocytes # (Manual) Monocytes # (Manual) Eosinophils # (Manual) Basophils # (Manual) 0.3 H PT INR D-Dimer ABG pH POC ABG pCO2 POC ABG pO2 ABG pO2 ABG HCO3 ABG O2 Saturation ABG Base Excess ABG Hemoglobin ABG Oxyhemoglobin ABG Potassium ABG Glucose Oxyhemoglobin Carboxyhemoglobin Sodium Potassium Chloride Carbon Dioxide BUN Creatinine Glucose POC Glucose 125 H 127 H Calcium Ferritin Total Bilirubin Alkaline Phosphatase Lactate Dehydrogenase Total Creatine Kinase CK-MB (CK-2) Rel Index Troponin T C-Reactive Protein Total Protein Albumin Prealbumin LDL Cholesterol Direct Arterial Blood Glucose Arterial Blood Ionized Calcium Urine WBC (Auto) 03/21/20 03/21/20 03/21/20 07:35 11:45 17:22 WBC RBC Hgb Hct MCV MCH RDW Plt Count Lymph % (Auto) Lymph # (Auto) [place] # (Auto) Seg Neutrophils % Seg Neuts % (Manual) Lymphocytes % (Manual) Monocytes % (Manual) Basophils % (Manual) Seg Neutrophils # Seg Neutrophils # Man Lymphocytes # (Manual) Monocytes # (Manual) Eosinophils # (Manual) Basophils # (Manual) PT INR D-Dimer ABG pH POC ABG pCO2 POC ABG pO2 ABG pO2 ABG HCO3 ABG O2 Saturation ABG Base Excess ABG Hemoglobin ABG Oxyhemoglobin ABG Potassium ABG Glucose Oxyhemoglobin Carboxyhemoglobin Sodium 136 L Potassium Chloride 97.7 L Carbon Dioxide 32 H BUN Creatinine < 0.2 L Glucose 103 H POC Glucose 126 H 120 H Calcium Ferritin Total Bilirubin Alkaline Phosphatase Lactate Dehydrogenase Total Creatine Kinase CK-MB (CK-2) Rel Index Troponin T C-Reactive Protein Total Protein Albumin Prealbumin LDL Cholesterol Direct Arterial Blood Glucose Arterial Blood Ionized Calcium Urine WBC (Auto) 03/22/20 03/22/20 03/22/20 05:09 06:34 06:34 WBC 17.5 H RBC 3.52 L Hgb 10.0 L Hct 30.7 L MCV MCH RDW 17.5 H Plt Count 499 H Lymph % (Auto) Lymph # (Auto) [place] # (Auto) Seg Neutrophils % Seg Neuts % (Manual) 80.0 H Lymphocytes % (Manual) 10.0 L Monocytes % (Manual) Basophils % (Manual) Seg Neutrophils # Seg Neutrophils # Man 14.0 H Lymphocytes # (Manual) Monocytes # (Manual) Eosinophils # (Manual) Basophils # (Manual) PT INR D-Dimer ABG pH POC ABG pCO2 POC ABG pO2 ABG pO2 ABG HCO3 ABG O2 Saturation ABG Base Excess ABG Hemoglobin ABG Oxyhemoglobin ABG Potassium ABG Glucose Oxyhemoglobin Carboxyhemoglobin Sodium Potassium Chloride 96.6 L Carbon Dioxide 38 H BUN Creatinine < 0.2 L Glucose 139 H POC Glucose 125 H Calcium Ferritin Total Bilirubin Alkaline Phosphatase Lactate Dehydrogenase Total Creatine Kinase CK-MB (CK-2) Rel Index Troponin T C-Reactive Protein Total Protein Albumin Prealbumin LDL Cholesterol Direct Arterial Blood Glucose Arterial Blood Ionized Calcium Urine WBC (Auto) 03/22/20 03/22/20 03/22/20 11:45 18:00 23:32 WBC RBC Hgb Hct MCV MCH RDW Plt Count Lymph % (Auto) Lymph # (Auto) [place] # (Auto) Seg Neutrophils % Seg Neuts % (Manual) Lymphocytes % (Manual) Monocytes % (Manual) Basophils % (Manual) Seg Neutrophils # Seg Neutrophils # Man Lymphocytes # (Manual) Monocytes # (Manual) Eosinophils # (Manual) Basophils # (Manual) PT INR D-Dimer ABG pH POC ABG pCO2 POC ABG pO2 ABG pO2 ABG HCO3 ABG O2 Saturation ABG Base Excess ABG Hemoglobin ABG Oxyhemoglobin ABG Potassium ABG Glucose Oxyhemoglobin Carboxyhemoglobin Sodium Potassium Chloride Carbon Dioxide BUN Creatinine Glucose POC Glucose 135 H 133 H Calcium Ferritin Total Bilirubin Alkaline Phosphatase Lactate Dehydrogenase Total Creatine Kinase CK-MB (CK-2) Rel Index Troponin T 0.113 H* C-Reactive Protein Total Protein Albumin Prealbumin LDL Cholesterol Direct Arterial Blood Glucose Arterial Blood Ionized Calcium Urine WBC (Auto) 03/23/20 03/23/20 03/23/20 01:47 06:21 07:57 WBC RBC Hgb Hct MCV MCH RDW Plt Count Lymph % (Auto) Lymph # (Auto) [place] # (Auto) Seg Neutrophils % Seg Neuts % (Manual) Lymphocytes % (Manual) Monocytes % (Manual) Basophils % (Manual) Seg Neutrophils # Seg Neutrophils # Man Lymphocytes # (Manual) Monocytes # (Manual) Eosinophils # (Manual) Basophils # (Manual) PT INR D-Dimer ABG pH POC ABG pCO2 POC ABG pO2 ABG pO2 ABG HCO3 ABG O2 Saturation ABG Base Excess ABG Hemoglobin ABG Oxyhemoglobin ABG Potassium ABG Glucose Oxyhemoglobin Carboxyhemoglobin Sodium Potassium Chloride Carbon Dioxide BUN Creatinine Glucose POC Glucose 130 H Calcium Ferritin Total Bilirubin Alkaline Phosphatase Lactate Dehydrogenase Total Creatine Kinase CK-MB (CK-2) Rel Index Troponin T 0.143 H* D 0.105 H* D C-Reactive Protein Total Protein Albumin Prealbumin LDL Cholesterol Direct Arterial Blood Glucose Arterial Blood Ionized Calcium Urine WBC (Auto) 03/23/20 03/24/20 03/24/20 12:02 05:33 07:15 WBC 18.0 H RBC Hgb 11.0 L Hct 34.0 L MCV MCH RDW 17.4 H Plt Count 520 H Lymph % (Auto) Lymph # (Auto) [place] # (Auto) Seg Neutrophils % Seg Neuts % (Manual) 88.0 H Lymphocytes % (Manual) 7.0 L Monocytes % (Manual) Basophils % (Manual) Seg Neutrophils # Seg Neutrophils # Man 15.8 H Lymphocytes # (Manual) Monocytes # (Manual) Eosinophils # (Manual) Basophils # (Manual) PT INR D-Dimer ABG pH POC ABG pCO2 POC ABG pO2 ABG pO2 ABG HCO3 ABG O2 Saturation ABG Base Excess ABG Hemoglobin ABG Oxyhemoglobin ABG Potassium ABG Glucose Oxyhemoglobin Carboxyhemoglobin Sodium Potassium Chloride Carbon Dioxide BUN Creatinine Glucose POC Glucose 137 H 112 H Calcium Ferritin Total Bilirubin Alkaline Phosphatase Lactate Dehydrogenase Total Creatine Kinase CK-MB (CK-2) Rel Index Troponin T C-Reactive Protein Total Protein Albumin Prealbumin LDL Cholesterol Direct Arterial Blood Glucose Arterial Blood Ionized Calcium Urine WBC (Auto) 03/24/20 03/24/20 03/24/20 07:15 11:22 23:30 WBC RBC Hgb Hct MCV MCH RDW Plt Count Lymph % (Auto) Lymph # (Auto) [place] # (Auto) Seg Neutrophils % Seg Neuts % (Manual) Lymphocytes % (Manual) Monocytes % (Manual) Basophils % (Manual) Seg Neutrophils # Seg Neutrophils # Man Lymphocytes # (Manual) Monocytes # (Manual) Eosinophils # (Manual) Basophils # (Manual) PT INR D-Dimer ABG pH POC ABG pCO2 POC ABG pO2 ABG pO2 ABG HCO3 ABG O2 Saturation ABG Base Excess ABG Hemoglobin ABG Oxyhemoglobin ABG Potassium ABG Glucose Oxyhemoglobin Carboxyhemoglobin Sodium Potassium Chloride 96.6 L Carbon Dioxide 38 H BUN Creatinine < 0.2 L Glucose 141 H POC Glucose 130 H 120 H Calcium Ferritin Total Bilirubin Alkaline Phosphatase Lactate Dehydrogenase Total Creatine Kinase CK-MB (CK-2) Rel Index Troponin T C-Reactive Protein Total Protein Albumin Prealbumin LDL Cholesterol Direct Arterial Blood Glucose Arterial Blood Ionized Calcium Urine WBC (Auto) 03/25/20 03/25/20 03/25/20 05:48 17:53 23:18 WBC RBC Hgb Hct MCV MCH RDW Plt Count Lymph % (Auto) Lymph # (Auto) [place] # (Auto) Seg Neutrophils % Seg Neuts % (Manual) Lymphocytes % (Manual) Monocytes % (Manual) Basophils % (Manual) Seg Neutrophils # Seg Neutrophils # Man Lymphocytes # (Manual) Monocytes # (Manual) Eosinophils # (Manual) Basophils # (Manual) PT INR D-Dimer ABG pH POC ABG pCO2 POC ABG pO2 ABG pO2 ABG HCO3 ABG O2 Saturation ABG Base Excess ABG Hemoglobin ABG Oxyhemoglobin ABG Potassium ABG Glucose Oxyhemoglobin Carboxyhemoglobin Sodium Potassium Chloride Carbon Dioxide BUN Creatinine Glucose POC Glucose 124 H 109 H 131 H Calcium Ferritin Total Bilirubin Alkaline Phosphatase Lactate Dehydrogenase Total Creatine Kinase CK-MB (CK-2) Rel Index Troponin T C-Reactive Protein Total Protein Albumin Prealbumin LDL Cholesterol Direct Arterial Blood Glucose Arterial Blood Ionized Calcium Urine WBC (Auto) 03/26/20 03/26/20 03/26/20 05:21 08:49 08:49 WBC 19.7 H RBC Hgb 10.7 L Hct 33.5 L MCV MCH 27 L RDW 17.1 H Plt Count 480 H Lymph % (Auto) 5.7 L Lymph # (Auto) 1.1 L [place] # (Auto) 1.2 H Seg Neutrophils % 87.7 H Seg Neuts % (Manual) Lymphocytes % (Manual) Monocytes % (Manual) Basophils % (Manual) Seg Neutrophils # 17.2 H Seg Neutrophils # Man Lymphocytes # (Manual) Monocytes # (Manual) Eosinophils # (Manual) Basophils # (Manual) PT INR D-Dimer ABG pH POC ABG pCO2 POC ABG pO2 ABG pO2 ABG HCO3 ABG O2 Saturation ABG Base Excess ABG Hemoglobin ABG Oxyhemoglobin ABG Potassium ABG Glucose Oxyhemoglobin Carboxyhemoglobin Sodium Potassium Chloride 97.2 L Carbon Dioxide 36 H BUN Creatinine < 0.2 L Glucose 127 H POC Glucose 116 H Calcium Ferritin Total Bilirubin Alkaline Phosphatase Lactate Dehydrogenase Total Creatine Kinase CK-MB (CK-2) Rel Index Troponin T C-Reactive Protein Total Protein Albumin Prealbumin LDL Cholesterol Direct Arterial Blood Glucose Arterial Blood Ionized Calcium Urine WBC (Auto) 03/26/20 03/26/20 03/26/20 11:38 18:44 23:06 WBC RBC Hgb Hct MCV MCH RDW Plt Count Lymph % (Auto) Lymph # (Auto) [place] # (Auto) Seg Neutrophils % Seg Neuts % (Manual) Lymphocytes % (Manual) Monocytes % (Manual) Basophils % (Manual) Seg Neutrophils # Seg Neutrophils # Man Lymphocytes # (Manual) Monocytes # (Manual) Eosinophils # (Manual) Basophils # (Manual) PT INR D-Dimer ABG pH POC ABG pCO2 POC ABG pO2 ABG pO2 ABG HCO3 ABG O2 Saturation ABG Base Excess ABG Hemoglobin ABG Oxyhemoglobin ABG Potassium ABG Glucose Oxyhemoglobin Carboxyhemoglobin Sodium Potassium Chloride Carbon Dioxide BUN Creatinine Glucose POC Glucose 120 H 111 H 134 H Calcium Ferritin Total Bilirubin Alkaline Phosphatase Lactate Dehydrogenase Total Creatine Kinase CK-MB (CK-2) Rel Index Troponin T C-Reactive Protein Total Protein Albumin Prealbumin LDL Cholesterol Direct Arterial Blood Glucose Arterial Blood Ionized Calcium Urine WBC (Auto) 03/27/20 03/27/20 03/27/20 05:41 05:59 05:59 WBC 18.6 H RBC Hgb 10.1 L Hct 31.4 L MCV MCH RDW 17.2 H Plt Count Lymph % (Auto) 8.0 L Lymph # (Auto) [place] # (Auto) 1.2 H Seg Neutrophils % 84.7 H Seg Neuts % (Manual) Lymphocytes % (Manual) Monocytes % (Manual) Basophils % (Manual) Seg Neutrophils # 15.8 H Seg Neutrophils # Man Lymphocytes # (Manual) Monocytes # (Manual) Eosinophils # (Manual) Basophils # (Manual) PT INR D-Dimer ABG pH POC ABG pCO2 POC ABG pO2 ABG pO2 ABG HCO3 ABG O2 Saturation ABG Base Excess ABG Hemoglobin ABG Oxyhemoglobin ABG Potassium ABG Glucose Oxyhemoglobin Carboxyhemoglobin Sodium Potassium Chloride Carbon Dioxide 34 H BUN Creatinine < 0.2 L Glucose 127 H POC Glucose 129 H Calcium Ferritin Total Bilirubin Alkaline Phosphatase Lactate Dehydrogenase Total Creatine Kinase CK-MB (CK-2) Rel Index Troponin T C-Reactive Protein Total Protein Albumin Prealbumin LDL Cholesterol Direct Arterial Blood Glucose Arterial Blood Ionized Calcium Urine WBC (Auto) 03/27/20 03/27/20 03/28/20 17:28 23:22 05:23 WBC RBC Hgb Hct MCV MCH RDW Plt Count Lymph % (Auto) Lymph # (Auto) [place] # (Auto) Seg Neutrophils % Seg Neuts % (Manual) Lymphocytes % (Manual) Monocytes % (Manual) Basophils % (Manual) Seg Neutrophils # Seg Neutrophils # Man Lymphocytes # (Manual) Monocytes # (Manual) Eosinophils # (Manual) Basophils # (Manual) PT INR D-Dimer ABG pH POC ABG pCO2 POC ABG pO2 ABG pO2 ABG HCO3 ABG O2 Saturation ABG Base Excess ABG Hemoglobin ABG Oxyhemoglobin ABG Potassium ABG Glucose Oxyhemoglobin Carboxyhemoglobin Sodium Potassium Chloride Carbon Dioxide BUN Creatinine Glucose POC Glucose 108 H 119 H 129 H Calcium Ferritin Total Bilirubin Alkaline Phosphatase Lactate Dehydrogenase Total Creatine Kinase CK-MB (CK-2) Rel Index Troponin T C-Reactive Protein Total Protein Albumin Prealbumin LDL Cholesterol Direct Arterial Blood Glucose Arterial Blood Ionized Calcium Urine WBC (Auto) 03/28/20 03/28/20 03/28/20 10:28 10:28 11:36 WBC 23.6 H RBC 3.62 L Hgb 10.0 L Hct 30.8 L MCV MCH RDW 16.4 H Plt Count Lymph % (Auto) Lymph # (Auto) [place] # (Auto) Seg Neutrophils % Seg Neuts % (Manual) 89.0 H Lymphocytes % (Manual) 5.0 L Monocytes % (Manual) Basophils % (Manual) Seg Neutrophils # Seg Neutrophils # Man 21.0 H Lymphocytes # (Manual) Monocytes # (Manual) 1.2 H Eosinophils # (Manual) Basophils # (Manual) 0.2 H PT INR D-Dimer ABG pH POC ABG pCO2 POC ABG pO2 ABG pO2 ABG HCO3 ABG O2 Saturation ABG Base Excess ABG Hemoglobin ABG Oxyhemoglobin ABG Potassium ABG Glucose Oxyhemoglobin Carboxyhemoglobin Sodium 134 L Potassium Chloride 94.2 L Carbon Dioxide 35 H BUN Creatinine < 0.2 L Glucose 134 H POC Glucose Calcium Ferritin Total Bilirubin Alkaline Phosphatase Lactate Dehydrogenase Total Creatine Kinase CK-MB (CK-2) Rel Index Troponin T C-Reactive Protein Total Protein Albumin Prealbumin LDL Cholesterol Direct Arterial Blood Glucose Arterial Blood Ionized Calcium Urine WBC (Auto) 39.0 H 03/28/20 03/28/20 03/28/20 11:51 17:08 17:17 WBC RBC Hgb Hct MCV MCH RDW Plt Count Lymph % (Auto) Lymph # (Auto) [place] # (Auto) Seg Neutrophils % Seg Neuts % (Manual) Lymphocytes % (Manual) Monocytes % (Manual) Basophils % (Manual) Seg Neutrophils # Seg Neutrophils # Man Lymphocytes # (Manual) Monocytes # (Manual) Eosinophils # (Manual) Basophils # (Manual) PT INR D-Dimer ABG pH POC ABG pCO2 POC ABG pO2 ABG pO2 ABG HCO3 ABG O2 Saturation ABG Base Excess ABG Hemoglobin ABG Oxyhemoglobin ABG Potassium ABG Glucose Oxyhemoglobin Carboxyhemoglobin Sodium Potassium Chloride Carbon Dioxide BUN Creatinine Glucose POC Glucose 123 H 112 H Calcium Ferritin Total Bilirubin Alkaline Phosphatase Lactate Dehydrogenase Total Creatine Kinase 47 L CK-MB (CK-2) Rel Index 4.6 H Troponin T 0.090 H C-Reactive Protein Total Protein Albumin Prealbumin LDL Cholesterol Direct Arterial Blood Glucose Arterial Blood Ionized Calcium Urine WBC (Auto) 03/28/20 03/29/20 03/29/20 23:22 05:22 10:58 WBC RBC Hgb Hct MCV MCH RDW Plt Count Lymph % (Auto) Lymph # (Auto) [place] # (Auto) Seg Neutrophils % Seg Neuts % (Manual) Lymphocytes % (Manual) Monocytes % (Manual) Basophils % (Manual) Seg Neutrophils # Seg Neutrophils # Man Lymphocytes # (Manual) Monocytes # (Manual) Eosinophils # (Manual) Basophils # (Manual) PT INR D-Dimer ABG pH POC ABG pCO2 POC ABG pO2 ABG pO2 ABG HCO3 ABG O2 Saturation ABG Base Excess ABG Hemoglobin ABG Oxyhemoglobin ABG Potassium ABG Glucose Oxyhemoglobin Carboxyhemoglobin Sodium Potassium Chloride Carbon Dioxide BUN Creatinine Glucose POC Glucose 122 H 116 H 133 H Calcium Ferritin Total Bilirubin Alkaline Phosphatase Lactate Dehydrogenase Total Creatine Kinase CK-MB (CK-2) Rel Index Troponin T C-Reactive Protein Total Protein Albumin Prealbumin LDL Cholesterol Direct Arterial Blood Glucose Arterial Blood Ionized Calcium Urine WBC (Auto) 03/29/20 03/29/20 03/30/20 17:18 23:14 04:57 WBC RBC Hgb Hct MCV MCH RDW Plt Count Lymph % (Auto) Lymph # (Auto) [place] # (Auto) Seg Neutrophils % Seg Neuts % (Manual) Lymphocytes % (Manual) Monocytes % (Manual) Basophils % (Manual) Seg Neutrophils # Seg Neutrophils # Man Lymphocytes # (Manual) Monocytes # (Manual) Eosinophils # (Manual) Basophils # (Manual) PT INR D-Dimer ABG pH POC ABG pCO2 POC ABG pO2 ABG pO2 ABG HCO3 ABG O2 Saturation ABG Base Excess ABG Hemoglobin ABG Oxyhemoglobin ABG Potassium ABG Glucose Oxyhemoglobin Carboxyhemoglobin Sodium Potassium Chloride Carbon Dioxide BUN Creatinine Glucose POC Glucose 111 H 114 H 130 H Calcium Ferritin Total Bilirubin Alkaline Phosphatase Lactate Dehydrogenase Total Creatine Kinase CK-MB (CK-2) Rel Index Troponin T C-Reactive Protein Total Protein Albumin Prealbumin LDL Cholesterol Direct Arterial Blood Glucose Arterial Blood Ionized Calcium Urine WBC (Auto) 03/30/20 03/30/20 03/30/20 11:38 14:47 14:47 WBC 19.9 H RBC Hgb 10.9 L Hct 34.4 L MCV MCH 27 L RDW 16.5 H Plt Count 441 H Lymph % (Auto) 6.4 L Lymph # (Auto) [place] # (Auto) 1.4 H Seg Neutrophils % 86.1 H Seg Neuts % (Manual) Lymphocytes % (Manual) Monocytes % (Manual) Basophils % (Manual) Seg Neutrophils # 17.1 H Seg Neutrophils # Man Lymphocytes # (Manual) Monocytes # (Manual) Eosinophils # (Manual) Basophils # (Manual) PT INR D-Dimer ABG pH POC ABG pCO2 POC ABG pO2 ABG pO2 ABG HCO3 ABG O2 Saturation ABG Base Excess ABG Hemoglobin ABG Oxyhemoglobin ABG Potassium ABG Glucose Oxyhemoglobin Carboxyhemoglobin Sodium 133 L Potassium Chloride 94.6 L Carbon Dioxide 33 H BUN Creatinine < 0.2 L Glucose 194 H POC Glucose 139 H Calcium Ferritin Total Bilirubin Alkaline Phosphatase Lactate Dehydrogenase Total Creatine Kinase CK-MB (CK-2) Rel Index Troponin T C-Reactive Protein Total Protein Albumin 2.8 L Prealbumin LDL Cholesterol Direct Arterial Blood Glucose Arterial Blood Ionized Calcium Urine WBC (Auto) 03/30/20 03/31/20 03/31/20 17:07 05:02 15:21 WBC RBC Hgb Hct MCV MCH RDW Plt Count Lymph % (Auto) Lymph # (Auto) [place] # (Auto) Seg Neutrophils % Seg Neuts % (Manual) Lymphocytes % (Manual) Monocytes % (Manual) Basophils % (Manual) Seg Neutrophils # Seg Neutrophils # Man Lymphocytes # (Manual) Monocytes # (Manual) Eosinophils # (Manual) Basophils # (Manual) PT INR D-Dimer ABG pH POC ABG pCO2 POC ABG pO2 ABG pO2 ABG HCO3 ABG O2 Saturation ABG Base Excess ABG Hemoglobin ABG Oxyhemoglobin ABG Potassium ABG Glucose Oxyhemoglobin Carboxyhemoglobin Sodium Potassium Chloride Carbon Dioxide BUN Creatinine Glucose POC Glucose 163 H 108 H 110 H Calcium Ferritin Total Bilirubin Alkaline Phosphatase Lactate Dehydrogenase Total Creatine Kinase CK-MB (CK-2) Rel Index Troponin T C-Reactive Protein Total Protein Albumin Prealbumin LDL Cholesterol Direct Arterial Blood Glucose Arterial Blood Ionized Calcium Urine WBC (Auto) 03/31/20 03/31/20 04/01/20 17:58 23:19 05:09 WBC RBC Hgb Hct MCV MCH RDW Plt Count Lymph % (Auto) Lymph # (Auto) [place] # (Auto) Seg Neutrophils % Seg Neuts % (Manual) Lymphocytes % (Manual) Monocytes % (Manual) Basophils % (Manual) Seg Neutrophils # Seg Neutrophils # Man Lymphocytes # (Manual) Monocytes # (Manual) Eosinophils # (Manual) Basophils # (Manual) PT INR D-Dimer ABG pH POC ABG pCO2 POC ABG pO2 ABG pO2 ABG HCO3 ABG O2 Saturation ABG Base Excess ABG Hemoglobin ABG Oxyhemoglobin ABG Potassium ABG Glucose Oxyhemoglobin Carboxyhemoglobin Sodium Potassium Chloride Carbon Dioxide BUN Creatinine Glucose POC Glucose 110 H 131 H 124 H Calcium Ferritin Total Bilirubin Alkaline Phosphatase Lactate Dehydrogenase Total Creatine Kinase CK-MB (CK-2) Rel Index Troponin T C-Reactive Protein Total Protein Albumin Prealbumin LDL Cholesterol Direct Arterial Blood Glucose Arterial Blood Ionized Calcium Urine WBC (Auto) 04/01/20 04/01/20 04/01/20 11:50 17:01 23:21 WBC RBC Hgb Hct MCV MCH RDW Plt Count Lymph % (Auto) Lymph # (Auto) [place] # (Auto) Seg Neutrophils % Seg Neuts % (Manual) Lymphocytes % (Manual) Monocytes % (Manual) Basophils % (Manual) Seg Neutrophils # Seg Neutrophils # Man Lymphocytes # (Manual) Monocytes # (Manual) Eosinophils # (Manual) Basophils # (Manual) PT INR D-Dimer ABG pH POC ABG pCO2 POC ABG pO2 ABG pO2 ABG HCO3 ABG O2 Saturation ABG Base Excess ABG Hemoglobin ABG Oxyhemoglobin ABG Potassium ABG Glucose Oxyhemoglobin Carboxyhemoglobin Sodium Potassium Chloride Carbon Dioxide BUN Creatinine Glucose POC Glucose 136 H 115 H 124 H Calcium Ferritin Total Bilirubin Alkaline Phosphatase Lactate Dehydrogenase Total Creatine Kinase CK-MB (CK-2) Rel Index Troponin T C-Reactive Protein Total Protein Albumin Prealbumin LDL Cholesterol Direct Arterial Blood Glucose Arterial Blood Ionized Calcium Urine WBC (Auto) 04/02/20 04/02/20 04/02/20 05:27 11:58 17:58 WBC RBC Hgb Hct MCV MCH RDW Plt Count Lymph % (Auto) Lymph # (Auto) [place] # (Auto) Seg Neutrophils % Seg Neuts % (Manual) Lymphocytes % (Manual) Monocytes % (Manual) Basophils % (Manual) Seg Neutrophils # Seg Neutrophils # Man Lymphocytes # (Manual) Monocytes # (Manual) Eosinophils # (Manual) Basophils # (Manual) PT INR D-Dimer ABG pH POC ABG pCO2 POC ABG pO2 ABG pO2 ABG HCO3 ABG O2 Saturation ABG Base Excess ABG Hemoglobin ABG Oxyhemoglobin ABG Potassium ABG Glucose Oxyhemoglobin Carboxyhemoglobin Sodium Potassium Chloride Carbon Dioxide BUN Creatinine Glucose POC Glucose 117 H 133 H 122 H Calcium Ferritin Total Bilirubin Alkaline Phosphatase Lactate Dehydrogenase Total Creatine Kinase CK-MB (CK-2) Rel Index Troponin T C-Reactive Protein Total Protein Albumin Prealbumin LDL Cholesterol Direct Arterial Blood Glucose Arterial Blood Ionized Calcium Urine WBC (Auto) 04/02/20 04/03/20 23:12 05:11 WBC RBC Hgb Hct MCV MCH RDW Plt Count Lymph % (Auto) Lymph # (Auto) [place] # (Auto) Seg Neutrophils % Seg Neuts % (Manual) Lymphocytes % (Manual) Monocytes % (Manual) Basophils % (Manual) Seg Neutrophils # Seg Neutrophils # Man Lymphocytes # (Manual) Monocytes # (Manual) Eosinophils # (Manual) Basophils # (Manual) PT INR D-Dimer ABG pH POC ABG pCO2 POC ABG pO2 ABG pO2 ABG HCO3 ABG O2 Saturation ABG Base Excess ABG Hemoglobin ABG Oxyhemoglobin ABG Potassium ABG Glucose Oxyhemoglobin Carboxyhemoglobin Sodium Potassium Chloride Carbon Dioxide BUN Creatinine Glucose POC Glucose 130 H 139 H Calcium Ferritin Total Bilirubin Alkaline Phosphatase Lactate Dehydrogenase Total Creatine Kinase CK-MB (CK-2) Rel Index Troponin T C-Reactive Protein Total Protein Albumin Prealbumin LDL Cholesterol Direct Arterial Blood Glucose Arterial Blood Ionized Calcium Urine WBC (Auto) Chest x-ray: other (none today) Allied health notes reviewed: nursing
[2020-04-03] MEDS ORDERED: MAGNESIUM CITRATE 300 ML ORAL LIQD PO SCH (12:00)
[2020-04-03] MEDS: DOCUSATE SODIUM 100 MG/10 ML ORAL LIQD FEEDTUBE SCH ×2 (14:02→22:12)
[2020-04-03] MEDS: BACLOFEN 10 MG TAB PO SCH ×2 (14:02→22:11)
[2020-04-03] MEDS: PREGABALIN 75 MG CAP PO SCH ×2 (14:03→22:11)
--- NOTE | 2020-04-03 14:14 | Progress Note ---
Assessment and Plan Assessment and plan: 59-year-old male patient with significant past medical history of ALS, presented to ED with worsening shortness of breath since the morning ZOOKEEPER. Patient was on a trilogy machine for breathing 18/11. EMS arrived, patient had O2 sats in the 80s. EMS attempted to place patient on their CPAP machine, hill john patient did not tolerate. Patient was admitted to the ICU with diagnosis of acute hypoxic respiratory failure and placed on BiPAP. Patient initially tolerated but later deteriorated with respiratory status. CTA chest showed no PE but significant for bilateral pneumonia. Doppler ultrasound also negative for DVT. COVID-19 test ordered. Due to persistent hypoxia, patient was intubated on 02/26/2020 at 1500. Patient now on mechanical ventilation in the ICU. 02/26/2020. Blood cultures are negative x48 hours and Covid testing negative as well. Continue antibiotics per ID recommendations for community-acquired bilateral pneumonia. Cardiology consultation for elevated troponin. Check echocardiogram. 02/27/2020. Events of yesterday noted with asystole following V. fib arrest. Patient currently on AC mode rate 20, tidal volume 400, FiO2 50% and a PEEP of 6. Follow-up echocardiogram for elevated troponin. Cardiology suspects NSTEMI Type 2 in the setting of acute resp failure. Chest CTA and BLE Dopplers neg. we will discontinue Decadron given the Covid PCR is negative. 02/25/2020. CTA of the chest reveals no PE but does illustrate the bilateral pneumonia. Doppler ultrasound also negative for DVT. Blood cultures are pending. Await COVID-19 testing. Patient currently requiring BiPAP IPAP 24/EPAP 6 with FiO2 of 25%. Continue O2 and BiPAP as clinically indicated. ID and pulmonary consulted. 02/26/2020. Blood cultures are negative x48 hours and Covid testing negative as well. Continue antibiotics per ID recommendations for community-acquired bilateral pneumonia. Cardiology consultation for elevated troponin. Check echocardiogram. 02/27/2020. Events of yesterday noted with asystole following V. fib arrest. Patient currently on AC mode rate 20, tidal volume 400, FiO2 50% and a PEEP of 6. Follow-up echocardiogram for elevated troponin. Cardiology suspects NSTEMI Type 2 in the setting of acute resp failure. Chest CTA and BLE Dopplers neg. we will discontinue Decadron given the Covid PCR is negative. 02/28/2020. I spoke with the sister Felisa Eli who is the power of traffic law attorney regarding advanced directives and she instructed me that she would like to continue with aggressive care at this time. I informed her of the guarded prognosis and high mortality/morbidity and she voiced understanding. Patient currently with AC mode ventilation rate 18, tidal volume 400, FiO2 40% and a PEEP of 6. Continue antibiotics for pneumonia. ID previously consulted. Also consult neurology with regards to ALS. 02/29/2020; patient is intubated and on CPAP patient is alert and oriented. Patient has ALS. Dr. Álvarez spoke with his sister and she wants aggressive care. Continue antibiotics for pneumonia. Neurology consulted for ALS. Prognosis poor 03/01/2020; patient is intubated and on CPAP, patient is alert and oriented. I spoke with his 2 sisters about the management plan. 03/02/2020; patient is intubated and on CPAP. Patient was alert and oriented. I spoke with Dr. mohr and he thinks patient may need mechanical ventilation, likely his disease progressed. Dr. Flowers did debridement this morning. 03/03/2020; patient is intubated and on CPAP, patient was on trilogy and BiPAP at home. Patient has ALS. on spontaneous breathing trial. Patient is alert and oriented but quadriplegic. Patient has severe bilateral pneumonia and is on cefepime and Vanco, ID is following. Patient has sacral decubitus ulcer and debridement was done by Dr. Flowers and there is no osteomyelitis. 03/05. Patient still on broad-spectrum antibiotics. Status post sacral decubitus ulcer debridements-no osteomyelitis. Patient is on AC 25/400/30% PEEP 5. No blood gas results today. 03/06. Plan for tracheostomy by surgery. Still remains intubated. Labs reviewed-sodium 150. Started on free water 200 every 8hr. trend sodium. 03/07: s/p trach placement today, patient placed back on mechanical ventilation with trach. Plan to resume tube feeding with NG tube. Continue to monitor vitals, monitor BMP. 03/08: Patient noted to have distended abdomen with low urinary output. Obtain bladder scan rule out urine retention, UA and urine culture, continue to follow clinically. 03/09: Patient noted to have low blood pressure with SBP as low as 70s. Ordered for 500 mils normal saline bolus. CT abdomen showed bladder outlet obstruction, urology consulted. 03/10: placed on drake by urology o/n, improved urine outpt. cont to monitor BMP. resuded TF - cont free water with TF. wean off from vent as tolerated. 03/11: Vitals stable. cont TF, wean off from vent as tolerated. start on 1/2 NS for hypernatremia - follow BMP 03/12: wean off vent as tolerated, plan for speech eval, cont Tf for now, cont iv fluid 03/13: unable to wean off from vent, unable to do speech therapy eval. will need PEG tube, cont supportive care for now, cont NG tube feeding 03/14: consulted GI for PEg placemnet, cont supportive care. remains on vent at night 03/15: Discussed with GI, plan for PEG tube placement possibly tomorrow. Continue supportive care and wean off from vent as tolerated. Hold Lovenox dose tonight. 03/16: family didnot consent for PEG placement yesterday. I spoke with the daughter today and she is now agreeable for PEG tube. I explained the necessity of the procedure with RN to the patient also and he nodded started on tube feeding, for the procedure. will cont supportive care. planned for PEG tube placement tomorrow. 03/17: s/p PEG placement today, patient tolerated well, cont supportive care 03/18: Started on tube feeding with new PEG tube, continue to wean off vent as tolerated 03/19: cont to monitor with supportive care, wean off vent as tolerated 03/20: Continue to wean off vent as tolerated -but failing weaning trial. Still requiring vent support at night. Currently on PEG tube for tube feed. 03/21. Pt with PSV trials with FiO@ 30%, PEEP 6, PS 10. Currently on PEG tube for tube feed. 03/22/2020. Continue PSV trials per pulmonary. Continue bronchodilators. Patient tolerating tube feedings. Continue Robinul for secretion control. 03/23/2020. Continue PSV trials per pulmonary. Continue bronchodilators. Continue Scopolamine and Robinul for secretion control. Trach care/airway management. Mobility protocols for pressure ulcer prophylaxis. LTAC evaluation per case management 03/24/2020. Continue PSV trials with current settings pressure support 10, PEEP 6 and FiO2 30%. Continue bronchodilators/nebulizer. Continue Scopolamine and Robinul for secretion control. Trach care/airway management. Mobility protocols for pressure ulcer prophylaxis. LTAC evaluation per case management 03/25/2020. Pulmonary to proceed with T-piece trials today. Continue bronchodilators/nebulizer. Continue Scopolamine and Robinul for secretion control. Trach care/airway management. Mobility protocols for pressure ulcer prophylaxis. 03/26/2020. Patient currently with PSV 10/6 at FiO2 of 30%. Continue weaning and T-piece trials per protocol. Continue bronchodilators/nebulizer. Continue Scopolamine and Robinul for secretion control. Trach care/airway management. Mobility protocols for pressure ulcer prophylaxis. Continue tube feeding with aspiration precautions. 03/27/2020. Patient currently with PSV 10/6 at FiO2 of 30%. Continue weaning and T-piece trials per protocol. Continue bronchodilators/nebulizer. Continue Scopolamine and Robinul for secretion control. Trach care/airway management. Mobility protocols for pressure ulcer prophylaxis. Continue tube feeding with aspiration precautions. 03/28. Had temp 100.7F. He has been off antibiotics. Will send blood culture, ua, urine culture and chest xray. Had chest pain overnight and trop was elevated as well. Cardiology to evaluate 03/29. Has back pain due to position. He mentions his chest pain is positional. Has no other complaints. Still on mechanical ventilation 03/30. No chest pain today. Labs reviewed. Discussed chest pain with cardiology and team advised no further work up at this time. Can follow up with cardiology in the office after hospitalization 03/31. Lidocaine patch for lower back pain. 04/01. Discharge planning underway. CM notes reviewed. Discussed with daughter 04/02 - . CM trying to arrange discharge. Continue PSV trials. Discussed with patients significant other The high probability of a clinically significant, sudden or life threatening deterioration of the [cardiac and respiratory] system(s) required my full and direct attention, intervention and personal management. The aggregate critical care time was [32] minutes. This time is in addition to time spent performing reported procedures but includes the following: [x] Data Review and interpretation [x] Patient assessment and monitoring of vital signs [x] Documentation [x] Medication orders and management Assessment and Plan --Acute hypoxic hypercapnic respiratory failure; Trach to vent Continue PSV trials DC plan to home with home health vs LTAC --ALS - Stable --Elevated D-dimers; CTA chest, lower extremity venous Doppler both are negative Lovenox DVT prophylaxis --Bilateral pneumonia; probably community-acquired Resolved --Sepsis secondary to pneumonia Resolved --Elevated troponin Likely type II [place] Cardiology follow up at discharge ---Fever Resolved Complete antibiotics --DVT prophylaxis; Lovenox Disposition: prefers home discharge. CM trying to set this up. History Interval history: Patient seen and examined at bedside Intubated Awake on vent Discussed with significant other today Hospitalist Physical - Physical exam Narrative exam: VITAL SIGNS: Reviewed. GENERAL: Awake. trach to vent HEAD: No signs of head trauma. EYES: Pupils are equal. Extraocular motions intact. EARS: Hearing grossly intact. MOUTH: Oropharynx is normal. NECK: No adenopathy, no JVD. CHEST: Coarse breath sounds bilaterally CARDIAC: Regular rate and rhythm. S1 and S2, without murmurs, gallops, or rubs. VASCULAR: No Edema. Peripheral pulses normal and equal in all extremities. ABDOMEN: Soft, non tender and non distended. No rebound or guarding, and no masses palpated. Bowel Sounds normal. NEUROLOGIC EXAM: Awake SKIN: No obvious lesions - Constitutional Vitals: Temp Pulse Resp BP Pulse Ox 98.5 F 104 H 25 H 137/94 97 04/03/20 12:00 04/03/20 11:46 04/03/20 11:46 04/03/20 11:46 04/03/20 11:56 HEART Score - HEART Score Troponin: Troponin T 0.090 ng/mL (0.00-0.029) H 03/28/20 17:17 Results - Labs CBC & Chem 7: 03/30/20 14:47 03/30/20 14:47 Labs: Laboratory Last Values WBC 19.9 K/mm3 (4.5-11.0) H 03/30/20 14:47 RBC 4.01 M/mm3 (3.65-5.03) 03/30/20 14:47 Hgb 10.9 gm/dl (11.8-15.2) L 03/30/20 14:47 Hct 34.4 % (35.5-45.6) L 03/30/20 14:47 MCV 86 fl (84-94) 03/30/20 14:47 MCH 27 pg (28-32) L 03/30/20 14:47 MCHC 32 % (32-34) 03/30/20 14:47 RDW 16.5 % (13.2-15.2) H 03/30/20 14:47 Plt Count 441 K/mm3 (140-440) H 03/30/20 14:47 Lymph % (Auto) 6.4 % (13.4-35.0) L 03/30/20 14:47 [place] % (Auto) 7.2 % (0.0-7.3) 03/30/20 14:47 Eos % (Auto) 0.1 % (0.0-4.3) 03/30/20 14:47 Baso % (Auto) 0.2 % (0.0-1.8) 03/30/20 14:47 Lymph # (Auto) 1.3 K/mm3 (1.2-5.4) 03/30/20 14:47 [place] # (Auto) 1.4 K/mm3 (0.0-0.8) H 03/30/20 14:47 Eos # (Auto) 0.0 K/mm3 (0.0-0.4) 03/30/20 14:47 Baso # (Auto) 0.0 K/mm3 (0.0-0.1) 03/30/20 14:47 Add Manual Diff Complete 03/28/20 10:28 Total Counted 100 03/28/20 10:28 Seg Neutrophils % 86.1 % (40.0-70.0) H 03/30/20 14:47 Seg Neuts % (Manual) 89.0 % (40.0-70.0) H 03/28/20 10:28 Band Neutrophils % 0 % 03/28/20 10:28 Lymphocytes % (Manual) 5.0 % (13.4-35.0) L 03/28/20 10:28 Reactive Lymphs % (Man) 0 % 03/28/20 10:28 Monocytes % (Manual) 5.0 % (0.0-7.3) 03/28/20 10:28 Eosinophils % (Manual) 0 % (0.0-4.3) 03/28/20 10:28 Basophils % (Manual) 1.0 % (0.0-1.8) 03/28/20 10:28 Metamyelocytes % 0 % 03/28/20 10:28 Myelocytes % 0 % 03/28/20 10:28 Promyelocytes % 0 % 03/28/20 10:28 Blast Cells % 0 % 03/28/20 10:28 Nucleated RBC % Not Reportable 03/28/20 10:28 Seg Neutrophils # 17.1 K/mm3 (1.8-7.7) H 03/30/20 14:47 Seg Neutrophils # Man 21.0 K/mm3 (1.8-7.7) H 03/28/20 10:28 Band Neutrophils # 0.0 K/mm3 03/28/20 10:28 Lymphocytes # (Manual) 1.2 K/mm3 (1.2-5.4) 03/28/20 10:28 Abs React Lymphs (Man) 0.0 K/mm3 03/28/20 10:28 Monocytes # (Manual) 1.2 K/mm3 (0.0-0.8) H 03/28/20 10:28 Eosinophils # (Manual) 0.0 K/mm3 (0.0-0.4) 03/28/20 10:28 Basophils # (Manual) 0.2 K/mm3 (0.0-0.1) H 03/28/20 10:28 Metamyelocytes # 0.0 K/mm3 03/28/20 10:28 Myelocytes # 0.0 K/mm3 03/28/20 10:28 Promyelocytes # 0.0 K/mm3 03/28/20 10:28 Blast Cells # 0.0 K/mm3 03/28/20 10:28 WBC Morphology Not Reportable 03/28/20 10:28 Hypersegmented Neuts Not Reportable 03/28/20 10:28 Hyposegmented Neuts Not Reportable 03/28/20 10:28 Hypogranular Neuts Not Reportable 03/28/20 10:28 Smudge Cells Not Reportable 03/28/20 10:28 Toxic Granulation 1+ 03/28/20 10:28 Toxic Vacuolation Not Reportable 03/28/20 10:28 Dohle Bodies Not Reportable 03/28/20 10:28 Pelger-Huet Anomaly Not Reportable 03/28/20 10:28 Robert Rods Not Reportable 03/28/20 10:28 Platelet Estimate Consistent w auto 03/28/20 10:28 Clumped Platelets Not Reportable 03/28/20 10:28 Plt Clumps, EDTA Not Reportable 03/28/20 10:28 Large Platelets Not Reportable 03/28/20 10:28 Giant Platelets Not Reportable 03/28/20 10:28 Platelet Satelliting Not Reportable 03/28/20 10:28 Plt Morphology Comment Not Reportable 03/28/20 10:28 RBC Morphology Not Reportable 03/28/20 10:28 Dimorphic RBCs Not Reportable 03/28/20 10:28 Polychromasia Not Reportable 03/28/20 10:28 Hypochromasia Not Reportable 03/28/20 10:28 Poikilocytosis Not Reportable 03/28/20 10:28 Anisocytosis 1+ 03/28/20 10:28 Microcytosis Not Reportable 03/28/20 10:28 Macrocytosis Not Reportable 03/28/20 10:28 Spherocytes Not Reportable 03/28/20 10:28 Pappenheimer Bodies Not Reportable 03/28/20 10:28 Sickle Cells Not Reportable 03/28/20 10:28 Target Cells Not Reportable 03/28/20 10:28 Tear Drop Cells Not Reportable 03/28/20 10:28 Ovalocytes Not Reportable 03/28/20 10:28 Stomatocytes Few 03/17/20 04:40 Helmet Cells Not Reportable 03/28/20 10:28 [place] Bodies Not Reportable 03/28/20 10:28 Bath Rings Not Reportable 03/28/20 10:28 [place] Cells Not Reportable 03/28/20 10:28 Bite Cells Not Reportable 03/28/20 10:28 Crenated Cell Not Reportable 03/28/20 10:28 Elliptocytes Not Reportable 03/28/20 10:28 Acanthocytes (Spur) Not Reportable 03/28/20 10:28 Rouleaux Not Reportable 03/28/20 10:28 Hemoglobin C Crystals Not Reportable 03/28/20 10:28 Schistocytes Not Reportable 03/28/20 10:28 Malaria parasites Not Reportable 03/28/20 10:28 [place] Bodies Not Reportable 03/28/20 10:28 Hem Pathologist Commnt No 03/28/20 10:28 PT 15.6 Sec. (12.2-14.9) H 02/24/20 09:19 INR 1.21 (0.87-1.13) H 02/24/20 09:19 APTT 25.4 Sec. (24.2-36.6) 02/24/20 09:19 D-Dimer 1311.96 ng/mlDDU (0-234) H 02/24/20 09:19 ABG pH 7.371 (7.320-7.450) 03/08/20 12:34 POC ABG pCO2 63.1 mmHg (32.0-48.0) H 03/08/20 12:34 ABG pCO2 60.1 mm Hg 03/06/20 04:34 POC ABG pO2 90.5 mmHg (83-108) 03/08/20 12:34 ABG pO2 88.6 mm Hg (80.0-90.0) 03/06/20 04:34 POC ABG HCO3 35.7 03/08/20 12:34 ABG HCO3 37.9 mmol/L (20.0-26.0) H 03/06/20 04:34 ABG O2 Saturation 97.0 % (95.0-99.0) 03/06/20 04:34 ABG O2 Content 14.3 (0.0-44) 03/06/20 04:34 POC ABG Base Excess 8.7 03/08/20 12:34 ABG Base Excess 11.4 mmol/L (-2.0-3.0) H 03/06/20 04:34 ABG Hemoglobin 10.9 (12.0-17.5) L 03/08/20 12:34 ABG Oxyhemoglobin 95.9 (94-98) 03/08/20 12:34 ABG Carboxyhemoglobin 1.7 % (0.0-5.0) 03/06/20 04:34 ABG Methemoglobin 0.3 (0.0-1.5) 03/08/20 12:34 ABG Sodium 143.6 mmol/L (136.0-145.0) 03/08/20 12:34 ABG Potassium 3.8 mmol/L (3.40-4.50) 03/08/20 12:34 ABG Chloride 102.0 mmol/L (98-107) 03/08/20 12:34 ABG Glucose 176 mg/dL (65-95) H 03/08/20 12:34 Oxyhemoglobin 94.7 % (95.0-99.0) L 03/06/20 04:34 Carboxyhemoglobin 0.7 (0.5-1.5) 03/08/20 12:34 FiO2 30 03/08/20 12:34 Sodium 133 mmol/L (137-145) L 03/30/20 14:47 Potassium 4.7 mmol/L (3.6-5.0) 03/30/20 14:47 Chloride 94.6 mmol/L (98-107) L 03/30/20 14:47 Carbon Dioxide 33 mmol/L (22-30) H 03/30/20 14:47 Anion Gap 10 mmol/L 03/30/20 14:47 BUN 16 mg/dL (9-20) 03/30/20 14:47 Creatinine < 0.2 mg/dL (0.8-1.3) L 03/30/20 14:47 Estimated GFR > 60 ml/min 03/30/20 14:47 BUN/Creatinine Ratio 80 % 03/30/20 14:47 Glucose 194 mg/dL (75-100) H 03/30/20 14:47 POC Glucose 136 mg/dL (70-105) H 04/03/20 11:11 Lactic Acid 1.00 mmol/L (0.7-2.0) 02/24/20 12:07 Calcium 9.1 mg/dL (8.4-10.2) 03/30/20 14:47 Phosphorus 3.30 mg/dL (2.5-4.5) 03/29/20 14:35 Magnesium 2.00 mg/dL (1.7-2.3) 03/29/20 14:35 Ferritin 1715.0 ng/mL (30.0-300.0) H 02/24/20 10:01 Total Bilirubin 0.40 mg/dL (0.1-1.2) 03/30/20 14:47 AST 22 units/L (5-40) 03/30/20 14:47 ALT 16 units/L (7-56) 03/30/20 14:47 Alkaline Phosphatase 78 units/L (35-129) 03/30/20 14:47 Lactate Dehydrogenase 303 units/L (91-180) H 02/24/20 09:19 Total Creatine Kinase 47 units/L (55-170) L 03/28/20 17:17 CK-MB (CK-2) 2.2 ng/mL (0.0-4.0) 03/28/20 17:17 CK-MB (CK-2) Rel Index 4.6 (0-4) H 03/28/20 17:17 Troponin T 0.090 ng/mL (0.00-0.029) H 03/28/20 17:17 C-Reactive Protein 4.70 mg/dL (0.00-1.30) H 02/28/20 11:05 NT-Pro-B Natriuret Pep 48.30 pg/mL (0-900) 02/24/20 09:19 Total Protein 7.7 g/dL (6.3-8.2) 03/30/20 14:47 Albumin 2.8 g/dL (3.9-5) L 03/30/20 14:47 Albumin/Globulin Ratio 0.6 % 03/30/20 14:47 Prealbumin 0.090 g/L (0.200-0.400) L 02/28/20 12:54 Triglycerides 34 mg/dL (2-149) 03/22/20 18:00 Cholesterol 104 mg/dL (50-199) 03/22/20 18:00 LDL Cholesterol Direct 54 mg/dL (50-130) 03/22/20 18:00 HDL Cholesterol 40 mg/dL (40-59) 03/22/20 18:00 Cholesterol/HDL Ratio 2.60 % 03/22/20 18:00 Procalcitonin < 0.05 ng/mL (<0.15) 03/28/20 17:12 Arterial Blood Glucose 176 mg/dL (65-95) H 03/08/20 12:34 Arterial Blood Ionized Calcium 4.5 mg/dL (4.6-5.3) L 03/08/20 12:34 Urine Color Yellow (Yellow) 03/28/20 11:36 Urine Turbidity Hazy (Clear) 03/28/20 11:36 Urine pH 5.0 (5.0-7.0) 03/28/20 11:36 Ur Specific [place] 1.026 (1.003-1.030) 03/28/20 11:36 Urine Protein 100 mg/dl mg/dL (Negative) 03/28/20 11:36 Urine Glucose (UA) Neg mg/dL (Negative) 03/28/20 11:36 Urine Ketones Neg mg/dL (Negative) 03/28/20 11:36 Urine Blood Neg (Negative) 03/28/20 11:36 Urine Nitrite Neg (Negative) 03/28/20 11:36 Urine Bilirubin Neg (Negative) 03/28/20 11:36 Urine Urobilinogen 4.0 mg/dL (<2.0) 03/28/20 11:36 Ur Leukocyte Esterase Mod (Negative) 03/28/20 11:36 Urine WBC (Auto) 39.0 /HPF (0.0-6.0) H 03/28/20 11:36 Urine RBC (Auto) 16.0 /HPF (0.0-6.0) 03/28/20 11:36 U Epithel Cells (Auto) < 1.0 /HPF (0-13.0) 03/08/20 08:57 Urine Bacteria (Auto) 2+ /HPF (Negative) 03/28/20 11:36 Urine Mucus 3+ /HPF 03/28/20 11:36 Urine Yeast (Budding) 2+ /HPF 03/28/20 11:36 Vancomycin Trough 8.0 ug/mL (5.0-20.0) 03/04/20 08:59 Coronavirus (PCR) Negative (Negative) 02/25/20 09:03 Microbiology: Microbiology 03/28/20 17:12 Peripheral/Venous Blood Culture - Final NO GROWTH AFTER 5 DAYS 03/28/20 17:12 Peripheral/Venous Blood Culture - Final NO GROWTH AFTER 5 DAYS - Diagnostic Impressions Diagnostic Impressions: Echocardiogram 02/26/20 10:41 Transthoracic Echocardiogram Indication: Elevated Trop BP: 116/75 HR: 85 Conclusions *Global left ventricular wall motion and contractility are within normal limits. *The estimated ejection fraction is 50-55%. *Abnormal left ventricular diastolic filling is observed, consistent with impaired relaxation. *There is no pericardial effusion. Findings Left Ventricle: The left ventricular chamber size is normal. Global left ventricular wall motion and contractility are within normal limits. Global left ventricular systolic function is normal. The estimated ejection fraction is 50-55%. Abnormal left ventricular diastolic filling is observed, consistent with impaired relaxation. Left Atrium: The left atrial chamber size is normal. Right Ventricle: The right ventricular cavity size is normal. Right Atrium: The right atrial cavity size is normal. Aortic Valve: Mild aortic leaflet calcification is visualized. There is no evidence of aortic regurgitation. Mitral Valve: The mitral valve leaflets are mildly thickened. There is no evidence of mitral regurgitation. Tricuspid Valve: The tricuspid valve leaflets are normal. There is trace tricuspid regurgitation. The right ventricular systolic pressure is calculated at 29 mmHg. Pulmonic Valve: The pulmonic valve is not well visualized. Pericardium: There is no pericardial effusion. Aorta: The aorta appears normal. Venous: The inferior vena cava is dilated. There is less than 50% respiratory change in the inferior vena cava dimension. Measurements Chambers 2D Name Value Normal Range IVSd (2D) 0.97 cm (0.6 - 1.1) LVPWd (2D) 0.93 cm (0.6 - 1.1) LVIDd (2D) 4 cm (3.7 - 5.6) LVIDs (2D) 2.73 cm (2 - 3.8) LV FS (2D) 31.67 % - EF Teichholz (2D) 60.23 % - Ao root diameter (2D) 3.51 cm (2 - 3.7) Volumes/Mass Name Value Normal Range LA ESV SP 4CH (A/L) 8.43 ml - LA ESV SP 2CH (A/L) 18.89 ml - LA ESV BP (A/L) 13.02 ml - LA ESV BP (A/L) index 8.8 ml/m2 - LA ESV SP 4CH (MOD) 7.22 ml - LA ESV SP 2CH (MOD) 18.15 ml - LA ESV BP (MOD) 11.47 ml - LA ESV BP (MOD) index 7.75 ml/m2 - Diastolic/Systolic Function Name Value Normal Range MV E-wave Vmax 0.51 m/sec - MV deceleration time 180.22 msec - MV A-wave Vmax 0.62 m/sec - MV E:A ratio 0.82 ratio - Aortic Valve Name Value Normal Range AV Vmax 1.17 m/sec - AV VTI 19.71 cm - AV peak gradient 5.44 mmHg - AV mean gradient 3.38 mmHg - LVOT diameter 2.26 cm - LVOT Vmax 0.89 m/sec - LVOT VTI 13.72 cm - LVOT peak gradient 3.17 mmHg - LVOT mean gradient 1.67 mmHg - SV LVOT 55.03 ml - SHARAD (continuity Vmax) 3.06 cm2 - SHARAD (continuity VTI) 2.79 cm2 - Tricuspid Valve Name Value Normal Range TR Vmax 2.3 m/sec - TR peak gradient 21 mmHg - RAP 8 mmHg - RVSP 29 mmHg - IVC diameter 2.59 cm (1.2 - 2.3) Pulmonic Valve/Qp:Qs Name Value Normal Range PV acceleration time 68.51 msec - Drake/IV: Voiding Method Indwelling Catheter IV Catheter Type [Left Hand] Peripheral IV IV Catheter Type [Right Hand] Peripheral IV IV Catheter Type [Left Wrist] Peripheral IV IV Catheter Type [Right Peripheral IV Forearm] IV Catheter Type [Right Triple Lumen Cath Internal Jugular] IV Catheter Type [Left Forearm INT / Saline Lock ] IV Catheter Type [Right Triple Lumen Cath Femoral] IV Catheter Type [Right INT / Saline Lock Antecubital] Active Medications - Current Medications Current Medications: Generic Name Dose Route Start Last Admin Trade Name Freq PRN Reason Stop Dose Admin Acetaminophen 650 mg 02/24/20 15:13 03/08/20 00:10 Tylenol PO 650 mg Q4H PRN Administration Pain, Mild (1-3) Albuterol 2.5 mg 02/24/20 15:13 Proventil IH Q4HRT PRN Shortness Of Breath Alprazolam 0.5 mg 03/30/20 14:19 04/01/20 09:39 Xanax PO 0.5 mg Q8H PRN Administration Anxiety Lipase/Protease/Amylase 1 each 02/26/20 11:[address] 10,500 Unit FEEDTUBE PRN PRN For Clogged Feeding Tube Baclofen 10 mg 04/03/20 12:00 04/03/20 14:02 Lioresal PO 10 mg BID ALISA Administration Bisacodyl 10 mg 03/12/20 18:00 03/15/20 17:50 Dulcolax MA 10 mg QDAY PRN Administration Bowel Movement Docusate Sodium 100 mg 04/03/20 12:00 04/03/20 14:02 Colace FEEDTUBE 100 mg BID ALISA Administration Enoxaparin Sodium 40 mg 03/20/20 22:00 04/02/20 21:22 Enoxaparin SUB-Q 40 mg QDAY@2200 ALISA Administration Protocol Glycopyrrolate 2 mg 03/26/20 08:00 04/03/20 14:03 Robinul PO 2 mg TID ALISA Administration Lansoprazole 30 mg 02/28/20 10:00 04/03/20 09:06 Prevacid Solutab FEEDTUBE 30 mg QDAY ALISA Administration Lidocaine 1 each 03/31/20 10:00 04/03/20 09:06 Lidoderm 5% TD 1 each QDAY ALISA Administration Magnesium Citrate 300 ml 04/03/20 12:00 04/03/20 14:01 Citrate Of Magnesia PO 04/03/20 16:00 300 ml NOW ALISA Administration Metoprolol Tartrate 12.5 mg 02/24/20 22:00 04/03/20 09:05 Metoprolol PO 12.5 mg BID ALISA Administration Morphine Sulfate 2 mg 02/29/20 16:42 04/03/20 14:03 Morphine IV 2 mg Q4H PRN Administration Pain, Moderate (4-6) Pregabalin 150 mg 04/03/20 12:00 04/03/20 14:03 Pregabalin PO 150 mg BID ALISA Administration Scopolamine 1 each 03/03/20 14:00 04/02/20 09:01 Transderm-Scop TD 1 each Q3D ALISA Administration Senna 17.2 mg 04/03/20 22:00 Senokot PO QHS AILSA Simple Syrup 15 ml 02/26/20 11:16 Simple Syrup FEEDTUBE PRN PRN Hypoglycemia Simple Syrup 30 ml 02/26/20 11:16 Simple Syrup FEEDTUBE PRN PRN Hypoglycemia Sodium Bicarbonate 325 mg 02/26/20 11:16 Sodium Bicarbonate FEEDTUBE PRN PRN For Clogged Feeding Tube Sodium Hypochlorite 1 applic 03/31/20 13:00 04/03/20 09:07 Dakin's Half Strength TP 1 applicatio BID ALISA Administration Tamsulosin HCl 0.4 mg 03/09/20 18:00 04/03/20 09:06 Flomax PO 0.4 mg QDAY ALISA Administration Zolpidem Tartrate 10 mg 03/31/20 20:15 04/02/20 21:33 Ambien PO 10 mg QHS PRN Administration Sleep Nutrition/Malnutrition Assess - Dietary Evaluation Nutrition/Malnutrition Findings: Nutrition Notes Start: 02/26/20 10:40 Freq: Status: Active Protocol: Document 03/28/20 11:24 EN (Rec: 03/28/20 11:50 EN [id number]) Co-Sign 03/28/20 11:24 NHALL Nutrition Notes Initial or Follow up Reassessment Current Diagnosis Decubitus(Pressure Ulcer), Sepsis,Respiratory Failure Other Pertinent Diagnosis COVID-19 (-), ALS, pneumonia, Hip/buttock PU Current Diet Vital AF 1.2 at 75ml/hr (goal rate) Labs/Tests Reviewed Pertinent Medications Reviewed Height 6 ft Weight 66 kg [place] Body Weight (kg) 80.90 BMI 19.7 Weight Status Appropriate Subjective/Other Information Pt continues tolerating TF at goal rate. 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 Yes Is Patient Ambulatory and/or Out of Bed No REE-([facility]-confined to bed) 1820.472 Kcal/Kg value to use for calculation 35 Approximate Energy Requirements Using 2310 kcal/Kg Calculation Used for Recommendations Kcal/kg Additional Notes Protein needs: 88-147 g (1.2-2 g/ kg ABW) Fluid: 1ml/kcal Nutrition Intervention Change Diet Order: Continue TF Nutrition Support: Vital AF 1.2 at 75ml/hr. Flush 200ml q4h For hyponatremia, flush 150 mL q4h Kcal 2,160 Protein (gm) 135 Fluid (mL) 1,460 Add Supplement/Snack (indicate name/kcal Will BID /protein ) Provides kCal: 190 Provides Protein (gm) 5 Goal #1 Meet at least 80% of energy and protein needs via TF Goal #2 Wound healing Anticipated Discharge Needs: Unable to determine at this time Follow-Up By: 04/04/20 Additional Comments Follow for stable TF
[2020-04-03] MEDS: ALPRAZolam 0.5 MG TAB PO PRN ×2 (15:59→22:11)
[2020-04-03] MEDS: ZOLPIDEM 5 MG TAB PO PRN (22:11)
[2020-04-03] MEDS: SENNOSIDES 8.6 MG TAB PO SCH (22:12)
[2020-04-03] MEDS: ENOXAPARIN 40 MG/0.4 ML INJ SUB-Q SCH (22:12)
[2020-04-04] MEDS: MORPHINE 2 MG/1 ML INJ IV PRN ×4 (06:03→20:22)
[2020-04-04] MEDS: GLYCOPYRROLATE 1 MG TAB PO SCH ×3 (08:52→21:09)
[2020-04-04] MEDS: LANSOPRAZOLE 30 MG SOLUTAB FEEDTUBE SCH (09:04)
[2020-04-04] MEDS: DOCUSATE SODIUM 100 MG/10 ML ORAL LIQD FEEDTUBE SCH ×2 (09:04→21:07)
[2020-04-04] MEDS: METOPROLOL TARTRATE 25 MG TAB PO SCH ×2 (09:05→21:11)
[2020-04-04] MEDS: LIDOCAINE 5% 1 EACH PATCH TD SCH (09:05)
[2020-04-04] MEDS: TAMSULOSIN 0.4 MG CAP PO SCH (09:05)
[2020-04-04] MEDS: BACLOFEN 10 MG TAB PO SCH ×2 (09:05→21:09)
[2020-04-04] MEDS: PREGABALIN 75 MG CAP PO SCH ×2 (09:05→21:08)
[2020-04-04] MEDS: SODIUM HYPOCHLORITE, DAKIN'S 1/2 STRENGTH (0.25%) 473 ML TOPICAL SOLN TP SCH ×2 (09:06→21:10)
--- NOTE | 2020-04-04 12:46 | Progress Note ---
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 Respiratory Failure Severe Sepsis with Shock Bilateral Pneumonia (Possible aspiration) History of ALS on Trilogy Oropharyngeal Dysphagia PUI-COVID Acute toxic metabolic encephalopathy Elevated D-dimer Elevated troponin possibly type 2 ischemia - continue home ventilator training - continue home meds re: chrionic pain (Baclofen, Lyrica) - continue daytime t-piece trial attempts as tolerated (PSV if fails) - continue care as below otherwise; - continue to rest on AC overnight for now - continue to optimize electrolytes (prn BMP, Mg & PO4) - repeat CXR prn +/- bronchoscopy for mucus plugging / large volume atelectasis - continue ambien 10 mg qhs prn - continue xanax 0.5 mg po q8h prn - continue Robinul & scopolamine for secretion control - prn electrolytes and optimize K+ & Mg 2+ for best respiratory muscle function - wound care per RN/WCN - continue Scopolamine patch for secretion control - wean supplemental oxygen for target O2 sat's > 92% acutely - bronchodilators with pulmonary hygiene per RT - VAP bundle addressed - continue lung protective strategies - continue bronchodilators with pulmonary hygiene per RT - wean per pulmonary driven protocols otherwise - sedation prn for target RASS 0 to -1 - s/p empiric antiinfectives per ID rec's (Rocephin and Zithromax) - s/p COVID-19 isolation (Airborne & Contact) - empiric Dexamethasone - follow COVID-19 test results (negative) - trend inflammatory markers to aid clinical decision making - enteral nutrition at goal rate as tolerated - Aspiration precautions - accuchecks with glycemic control per SSI (While critically ill target blood glucose of 140-180 mg/dL; avoid hypoglycemia) - avoid nephrotoxins, renally dose all medications - avoid benzodiazepine's, reduce the possibility of delirium - prn analgesia per CPOT score - Maintenance of sleep-wake cycle, avoid delirium - aspiration precautions - G.I. & VTE prophylaxis - PT/OT/ROM exercises - mobility protocols for pressure ulcer prophylaxis - Monitor hemodynamics closely - continue other care per attending / other consultants - discharge planning ongoing concurrently .... Re-evaluate in am & prn CONDITION: CRITICAL PROGNOSIS: GUARDED CODE STATUS: FULL CODE The high probability of a clinically significant, sudden or life-threatening deterioration of the [respiratory, cardiovascular & neurologic] system(s) required my full and direct attention, intervention and personal management. The aggregate critical care time was [33] minutes without overlap. Time includes spent on; [x] Data Review and interpretation [x] Patient assessment and monitoring of vital signs [x] Documentation [x] Medication orders and management Subjective Date of service: 04/04/20 Principal diagnosis: Ac on Ch Hypercapnic & hypoxemic Resp Failure; Severe Sepsis; [place] PNA; ALS Interval history: Patient is seen today for: Acute on Chronic Hypercapnic & hypoxemic Respiratory Failure; Severe Sepsis with Shock; Bilateral Pneumonia (Possible aspiration); History of ALS on Trilogy; PUI-COVID; Acute toxic metabolic encephalopathy Seen and examined at bedside; 24hour events reviewed; nursing and respiratory care staff consulted; no adverse overnight events reported to me; resting in bed; remains on MVS; family training scheduled for home ventilator; No N/V/F/C; still weaning tenuously and not tolerating t-piece trials Objective Vital Signs - 12hr 04/04/20 04/04/20 04/04/20 01:00 01:16 01:30 Temperature Pulse Rate 108 H 110 H 118 H Pulse Rate [ From Monitor] Respiratory 16 14 16 Rate Blood Pressure 98/68 98/68 117/81 O2 Sat by Pulse 96 99 Oximetry O2 Sat by Pulse Oximetry [ Assessment] 04/04/20 04/04/20 04/04/20 01:46 02:00 02:16 Temperature Pulse Rate 114 H 120 H 117 H Pulse Rate [ From Monitor] Respiratory 15 17 16 Rate Blood Pressure 117/81 119/80 98/68 O2 Sat by Pulse 97 95 96 Oximetry O2 Sat by Pulse Oximetry [ Assessment] 04/04/20 04/04/20 04/04/20 02:30 02:46 03:00 Temperature Pulse Rate 115 H 114 H 112 H Pulse Rate [ From Monitor] Respiratory 17 14 15 Rate Blood Pressure 112/78 112/78 122/81 O2 Sat by Pulse 95 95 95 Oximetry O2 Sat by Pulse Oximetry [ Assessment] 04/04/20 04/04/20 04/04/20 03:11 03:16 03:30 Temperature 99.6 F Pulse Rate 113 H 112 H Pulse Rate [ From Monitor] Respiratory 16 15 Rate Blood Pressure 122/81 113/77 O2 Sat by Pulse 94 91 Oximetry O2 Sat by Pulse Oximetry [ Assessment] 04/04/20 04/04/20 04/04/20 03:46 04:00 04:16 Temperature Pulse Rate 111 H 114 H 114 H Pulse Rate [ 109 H From Monitor] Respiratory 14 12 16 Rate Blood Pressure 122/81 108/70 108/70 O2 Sat by Pulse 95 96 95 Oximetry O2 Sat by Pulse Oximetry [ Assessment] 04/04/20 04/04/20 04/04/20 04:30 04:46 05:00 Temperature Pulse Rate 111 H 110 H 113 H Pulse Rate [ From Monitor] Respiratory 14 16 15 Rate Blood Pressure 97/70 97/70 103/72 O2 Sat by Pulse 96 96 Oximetry O2 Sat by Pulse Oximetry [ Assessment] 04/04/20 04/04/20 04/04/20 05:01 05:16 05:30 Temperature Pulse Rate 113 H 116 H Pulse Rate [ From Monitor] Respiratory 13 18 Rate Blood Pressure 103/72 112/75 O2 Sat by Pulse 96 93 Oximetry O2 Sat by Pulse 97 Oximetry [ Assessment] 04/04/20 04/04/20 04/04/20 05:46 06:00 06:16 Temperature Pulse Rate 123 H 123 H 126 H Pulse Rate [ From Monitor] Respiratory 14 14 19 Rate Blood Pressure 112/75 101/64 101/64 O2 Sat by Pulse 93 90 95 Oximetry O2 Sat by Pulse Oximetry [ Assessment] 04/04/20 04/04/20 04/04/20 06:30 06:46 07:00 Temperature Pulse Rate 111 H 110 H 108 H Pulse Rate [ From Monitor] Respiratory 10 L 12 12 Rate Blood Pressure 102/70 102/70 98/69 O2 Sat by Pulse 96 95 Oximetry O2 Sat by Pulse Oximetry [ Assessment] 04/04/20 04/04/20 04/04/20 07:16 07:30 07:38 Temperature Pulse Rate 106 H 106 H 113 H Pulse Rate [ From Monitor] Respiratory 13 13 23 Rate Blood Pressure 98/69 104/70 104/70 O2 Sat by Pulse 96 95 94 Oximetry O2 Sat by Pulse Oximetry [ Assessment] 04/04/20 04/04/20 04/04/20 07:46 08:00 08:16 Temperature Pulse Rate 113 H 114 H 121 H Pulse Rate [ 107 H From Monitor] Respiratory 25 H 25 H 30 H Rate Blood Pressure 104/70 113/74 113/74 O2 Sat by Pulse 94 93 96 Oximetry O2 Sat by Pulse Oximetry [ Assessment] 04/04/20 04/04/20 04/04/20 08:30 08:46 09:00 Temperature Pulse Rate 118 H 117 H 120 H Pulse Rate [ From Monitor] Respiratory 23 23 25 H Rate Blood Pressure 109/72 109/72 110/73 O2 Sat by Pulse 95 95 95 Oximetry O2 Sat by Pulse Oximetry [ Assessment] 04/04/20 04/04/20 04/04/20 09:05 09:16 09:30 Temperature Pulse Rate 120 H 123 H 97 H Pulse Rate [ From Monitor] Respiratory 18 25 H Rate Blood Pressure 110/73 110/73 110/75 O2 Sat by Pulse 94 Oximetry O2 Sat by Pulse Oximetry [ Assessment] 04/04/20 04/04/20 04/04/20 09:46 10:00 10:16 Temperature Pulse Rate 96 H 94 H 98 H Pulse Rate [ From Monitor] Respiratory 20 23 23 Rate Blood Pressure 110/73 113/75 113/75 O2 Sat by Pulse 96 94 95 Oximetry O2 Sat by Pulse Oximetry [ Assessment] 04/04/20 04/04/20 04/04/20 10:30 10:46 11:00 Temperature Pulse Rate 94 H 89 89 Pulse Rate [ From Monitor] Respiratory 22 28 H 19 Rate Blood Pressure 117/78 117/78 110/75 O2 Sat by Pulse 95 95 Oximetry O2 Sat by Pulse Oximetry [ Assessment] 04/04/20 04/04/20 04/04/20 11:16 11:30 11:45 Temperature Pulse Rate 90 95 H 100 H Pulse Rate [ From Monitor] Respiratory 29 H 23 19 Rate Blood Pressure 110/75 118/76 118/76 O2 Sat by Pulse 95 92 95 Oximetry O2 Sat by Pulse Oximetry [ Assessment] 04/04/20 11:48 Temperature Pulse Rate Pulse Rate [ From Monitor] Respiratory Rate Blood Pressure O2 Sat by Pulse Oximetry O2 Sat by Pulse 95 Oximetry [ Assessment] Constitutional: no acute distress, other (thin middle aged male with mildly increased respiratory effort at rest on MVS) Eyes: non-icteric ENT: oropharynx moist, other (S/P Tracheostomy) Neck: supple, no lymphadenopathy, no JVD Effort: mildly labored Ascultation: Bilateral: rhonchi Percussion: Bilateral: not dull Cardiovascular: regular rate and rhythm, other (S1,S2, no murmurs) Gastrointestinal: normoactive bowel sounds, soft, non-tender, non-distended, other Integumentary: normal, decubitus ulcer (sacral / gluteal) Extremities: no cyanosis, no edema, pulses normal, other (atrophic looking limbs) Neurologic: pupils equal and round, other (motor strength in extremities 1-2/5, awake, alert, mouths words to make needs known) Psychiatric: mood appropriate, affect normal CBC and BMP: 03/30/20 14:47 03/30/20 14:47 ABG, PT/INR, D-dimer: ABG ABG pH 7.371 (7.320-7.450) 03/08/20 12:34 POC ABG pCO2 63.1 mmHg (32.0-48.0) H 03/08/20 12:34 ABG pCO2 60.1 mm Hg 03/06/20 04:34 POC ABG pO2 90.5 mmHg (83-108) 03/08/20 12:34 ABG pO2 88.6 mm Hg (80.0-90.0) 03/06/20 04:34 POC ABG HCO3 35.7 03/08/20 12:34 ABG O2 Saturation 97.0 % (95.0-99.0) 03/06/20 04:34 PT/INR, D-dimer PT 15.6 Sec. (12.2-14.9) H 02/24/20 09:19 INR 1.21 (0.87-1.13) H 02/24/20 09:19 D-Dimer 1311.96 ng/mlDDU (0-234) H 02/24/20 09:19 Abnormal lab findings: Abnormal Labs 02/24/20 02/24/20 02/24/20 09:19 09:19 09:19 WBC 20.2 H RBC 5.05 H Hgb Hct MCV MCH RDW 15.3 H Plt Count Lymph % (Auto) Lymph # (Auto) [place] # (Auto) Seg Neutrophils % Seg Neuts % (Manual) 86.0 H Lymphocytes % (Manual) 1.0 L Monocytes % (Manual) Basophils % (Manual) Seg Neutrophils # Seg Neutrophils # Man 17.4 H Lymphocytes # (Manual) 0.2 L Monocytes # (Manual) Eosinophils # (Manual) Basophils # (Manual) PT 15.6 H INR 1.21 H D-Dimer 1311.96 H ABG pH POC ABG pCO2 POC ABG pO2 ABG pO2 ABG HCO3 ABG O2 Saturation ABG Base Excess ABG Hemoglobin ABG Oxyhemoglobin ABG Potassium ABG Glucose Oxyhemoglobin Carboxyhemoglobin Sodium 135 L Potassium 3.2 L Chloride 92.2 L Carbon Dioxide BUN 6 L Creatinine < 0.2 L Glucose 124 H POC Glucose Calcium Ferritin Total Bilirubin 2.30 H Alkaline Phosphatase 132 H Lactate Dehydrogenase Total Creatine Kinase CK-MB (CK-2) Rel Index Troponin T 0.080 H C-Reactive Protein Total Protein Albumin 3.6 L Prealbumin LDL Cholesterol Direct 41 L Arterial Blood Glucose Arterial Blood Ionized Calcium Urine WBC (Auto) 02/24/20 02/24/20 02/24/20 09:19 09:58 10:01 WBC RBC Hgb Hct MCV MCH RDW Plt Count Lymph % (Auto) Lymph # (Auto) [place] # (Auto) Seg Neutrophils % Seg Neuts % (Manual) Lymphocytes % (Manual) Monocytes % (Manual) Basophils % (Manual) Seg Neutrophils # Seg Neutrophils # Man Lymphocytes # (Manual) Monocytes # (Manual) Eosinophils # (Manual) Basophils # (Manual) PT INR D-Dimer ABG pH 7.176 L* POC ABG pCO2 POC ABG pO2 ABG pO2 91.2 H ABG HCO3 ABG O2 Saturation ABG Base Excess -4.6 L ABG Hemoglobin ABG Oxyhemoglobin ABG Potassium ABG Glucose Oxyhemoglobin 92.6 L Carboxyhemoglobin Sodium Potassium Chloride Carbon Dioxide BUN Creatinine Glucose POC Glucose Calcium Ferritin 1715.0 H Total Bilirubin Alkaline Phosphatase Lactate Dehydrogenase 303 H Total Creatine Kinase CK-MB (CK-2) Rel Index Troponin T C-Reactive Protein 26.10 H Total Protein Albumin Prealbumin LDL Cholesterol Direct Arterial Blood Glucose Arterial Blood Ionized Calcium Urine WBC (Auto) 02/24/20 02/24/20 02/24/20 11:52 13:45 19:35 WBC RBC Hgb Hct MCV MCH RDW Plt Count Lymph % (Auto) Lymph # (Auto) [place] # (Auto) Seg Neutrophils % Seg Neuts % (Manual) Lymphocytes % (Manual) Monocytes % (Manual) Basophils % (Manual) Seg Neutrophils # Seg Neutrophils # Man Lymphocytes # (Manual) Monocytes # (Manual) Eosinophils # (Manual) Basophils # (Manual) PT INR D-Dimer ABG pH 7.051 L* 7.300 L POC ABG pCO2 POC ABG pO2 ABG pO2 94.7 H 75.1 L ABG HCO3 18.0 L ABG O2 Saturation 93.5 L ABG Base Excess -6.8 L -7.8 L ABG Hemoglobin 13.2 L 11.9 L ABG Oxyhemoglobin ABG Potassium ABG Glucose Oxyhemoglobin 91.0 L 92.7 L Carboxyhemoglobin Sodium Potassium Chloride Carbon Dioxide BUN Creatinine Glucose POC Glucose Calcium Ferritin Total Bilirubin Alkaline Phosphatase Lactate Dehydrogenase Total Creatine Kinase CK-MB (CK-2) Rel Index Troponin T 0.034 H D C-Reactive Protein Total Protein Albumin Prealbumin LDL Cholesterol Direct Arterial Blood Glucose Arterial Blood Ionized Calcium Urine WBC (Auto) 02/25/20 02/25/20 02/25/20 04:00 04:00 12:26 WBC 22.9 H RBC Hgb Hct MCV 83 L MCH 27 L RDW Plt Count 468 H Lymph % (Auto) Lymph # (Auto) [place] # (Auto) Seg Neutrophils % Seg Neuts % (Manual) 89.0 H Lymphocytes % (Manual) 7.0 L Monocytes % (Manual) Basophils % (Manual) Seg Neutrophils # Seg Neutrophils # Man 20.4 H Lymphocytes # (Manual) Monocytes # (Manual) Eosinophils # (Manual) Basophils # (Manual) PT INR D-Dimer ABG pH POC ABG pCO2 POC ABG pO2 ABG pO2 ABG HCO3 ABG O2 Saturation ABG Base Excess ABG Hemoglobin ABG Oxyhemoglobin ABG Potassium 2.6 L ABG Glucose 142 H Oxyhemoglobin Carboxyhemoglobin Sodium Potassium 3.2 L Chloride Carbon Dioxide 18 L BUN Creatinine 0.2 L Glucose 114 H POC Glucose Calcium Ferritin Total Bilirubin Alkaline Phosphatase Lactate Dehydrogenase Total Creatine Kinase CK-MB (CK-2) Rel Index Troponin T C-Reactive Protein Total Protein Albumin 3.5 L Prealbumin LDL Cholesterol Direct Arterial Blood Glucose 142 H Arterial Blood Ionized Calcium Urine WBC (Auto) 02/26/20 02/26/20 02/26/20 15:58 17:00 23:43 WBC RBC Hgb Hct MCV MCH RDW Plt Count Lymph % (Auto) Lymph # (Auto) [place] # (Auto) Seg Neutrophils % Seg Neuts % (Manual) Lymphocytes % (Manual) Monocytes % (Manual) Basophils % (Manual) Seg Neutrophils # Seg Neutrophils # Man Lymphocytes # (Manual) Monocytes # (Manual) Eosinophils # (Manual) Basophils # (Manual) PT INR D-Dimer ABG pH 7.502 H POC ABG pCO2 POC ABG pO2 213.6 H ABG pO2 ABG HCO3 ABG O2 Saturation ABG Base Excess ABG Hemoglobin ABG Oxyhemoglobin 99.2 H ABG Potassium 2.9 L ABG Glucose 160 H Oxyhemoglobin Carboxyhemoglobin 0.4 L Sodium Potassium Chloride Carbon Dioxide BUN Creatinine Glucose POC Glucose 189 H 120 H Calcium Ferritin Total Bilirubin Alkaline Phosphatase Lactate Dehydrogenase Total Creatine Kinase CK-MB (CK-2) Rel Index Troponin T C-Reactive Protein Total Protein Albumin Prealbumin LDL Cholesterol Direct Arterial Blood Glucose 160 H Arterial Blood Ionized Calcium 4.5 L Urine WBC (Auto) 02/27/20 02/27/20 02/27/20 05:00 07:04 17:45 WBC RBC Hgb Hct MCV MCH RDW Plt Count Lymph % (Auto) Lymph # (Auto) [place] # (Auto) Seg Neutrophils % Seg Neuts % (Manual) Lymphocytes % (Manual) Monocytes % (Manual) Basophils % (Manual) Seg Neutrophils # Seg Neutrophils # Man Lymphocytes # (Manual) Monocytes # (Manual) Eosinophils # (Manual) Basophils # (Manual) PT INR D-Dimer ABG pH 7.524 H POC ABG pCO2 POC ABG pO2 ABG pO2 ABG HCO3 ABG O2 Saturation ABG Base Excess ABG Hemoglobin ABG Oxyhemoglobin ABG Potassium 3.0 L ABG Glucose 143 H Oxyhemoglobin Carboxyhemoglobin Sodium Potassium Chloride Carbon Dioxide BUN Creatinine Glucose POC Glucose 154 H 175 H Calcium Ferritin Total Bilirubin Alkaline Phosphatase Lactate Dehydrogenase Total Creatine Kinase CK-MB (CK-2) Rel Index Troponin T C-Reactive Protein Total Protein Albumin Prealbumin LDL Cholesterol Direct Arterial Blood Glucose 143 H Arterial Blood Ionized Calcium Urine WBC (Auto) 02/27/20 02/28/20 02/28/20 Unknown 00:21 04:15 WBC 18.7 H RBC Hgb Hct MCV MCH RDW Plt Count Lymph % (Auto) 8.7 L Lymph # (Auto) [place] # (Auto) 1.2 H Seg Neutrophils % 84.6 H Seg Neuts % (Manual) Lymphocytes % (Manual) Monocytes % (Manual) Basophils % (Manual) Seg Neutrophils # 15.9 H Seg Neutrophils # Man Lymphocytes # (Manual) Monocytes # (Manual) Eosinophils # (Manual) Basophils # (Manual) PT INR D-Dimer ABG pH POC ABG pCO2 POC ABG pO2 ABG pO2 ABG HCO3 ABG O2 Saturation ABG Base Excess ABG Hemoglobin ABG Oxyhemoglobin ABG Potassium ABG Glucose Oxyhemoglobin Carboxyhemoglobin Sodium Potassium 2.9 L* Chloride Carbon Dioxide 33 H D BUN Creatinine < 0.2 L Glucose 157 H POC Glucose 134 H Calcium Ferritin Total Bilirubin Alkaline Phosphatase Lactate Dehydrogenase Total Creatine Kinase CK-MB (CK-2) Rel Index Troponin T C-Reactive Protein Total Protein Albumin Prealbumin LDL Cholesterol Direct Arterial Blood Glucose Arterial Blood Ionized Calcium Urine WBC (Auto) 02/28/20 02/28/20 02/28/20 04:15 05:16 05:39 WBC RBC Hgb Hct MCV MCH RDW Plt Count Lymph % (Auto) Lymph # (Auto) [place] # (Auto) Seg Neutrophils % Seg Neuts % (Manual) Lymphocytes % (Manual) Monocytes % (Manual) Basophils % (Manual) Seg Neutrophils # Seg Neutrophils # Man Lymphocytes # (Manual) Monocytes # (Manual) Eosinophils # (Manual) Basophils # (Manual) PT INR D-Dimer ABG pH POC ABG pCO2 POC ABG pO2 ABG pO2 142.9 H ABG HCO3 34.1 H ABG O2 Saturation ABG Base Excess 8.3 H ABG Hemoglobin ABG Oxyhemoglobin ABG Potassium ABG Glucose Oxyhemoglobin Carboxyhemoglobin Sodium 151 H Potassium Chloride Carbon Dioxide 32 H BUN Creatinine 0.2 L Glucose 167 H POC Glucose 138 H Calcium Ferritin Total Bilirubin Alkaline Phosphatase Lactate Dehydrogenase Total Creatine Kinase CK-MB (CK-2) Rel Index Troponin T C-Reactive Protein Total Protein Albumin Prealbumin LDL Cholesterol Direct Arterial Blood Glucose Arterial Blood Ionized Calcium Urine WBC (Auto) 02/28/20 02/28/20 02/28/20 11:05 11:33 12:54 WBC RBC Hgb Hct MCV MCH RDW Plt Count Lymph % (Auto) Lymph # (Auto) [place] # (Auto) Seg Neutrophils % Seg Neuts % (Manual) Lymphocytes % (Manual) Monocytes % (Manual) Basophils % (Manual) Seg Neutrophils # Seg Neutrophils # Man Lymphocytes # (Manual) Monocytes # (Manual) Eosinophils # (Manual) Basophils # (Manual) PT INR D-Dimer ABG pH POC ABG pCO2 POC ABG pO2 ABG pO2 ABG HCO3 ABG O2 Saturation ABG Base Excess ABG Hemoglobin ABG Oxyhemoglobin ABG Potassium ABG Glucose Oxyhemoglobin Carboxyhemoglobin Sodium Potassium Chloride Carbon Dioxide BUN Creatinine Glucose POC Glucose 160 H Calcium Ferritin Total Bilirubin Alkaline Phosphatase Lactate Dehydrogenase Total Creatine Kinase CK-MB (CK-2) Rel Index Troponin T C-Reactive Protein 4.70 H Total Protein Albumin Prealbumin 0.090 L LDL Cholesterol Direct Arterial Blood Glucose Arterial Blood Ionized Calcium Urine WBC (Auto) 02/28/20 02/29/20 02/29/20 17:34 00:44 04:05 WBC 19.6 H RBC Hgb Hct MCV MCH 27 L RDW 15.4 H Plt Count Lymph % (Auto) Lymph # (Auto) [place] # (Auto) Seg Neutrophils % Seg Neuts % (Manual) 86.0 H Lymphocytes % (Manual) 7.0 L Monocytes % (Manual) Basophils % (Manual) Seg Neutrophils # Seg Neutrophils # Man 16.9 H Lymphocytes # (Manual) Monocytes # (Manual) 1.2 H Eosinophils # (Manual) Basophils # (Manual) PT INR D-Dimer ABG pH POC ABG pCO2 POC ABG pO2 ABG pO2 ABG HCO3 ABG O2 Saturation ABG Base Excess ABG Hemoglobin ABG Oxyhemoglobin ABG Potassium ABG Glucose Oxyhemoglobin Carboxyhemoglobin Sodium Potassium Chloride Carbon Dioxide BUN Creatinine Glucose POC Glucose 136 H 156 H Calcium Ferritin Total Bilirubin Alkaline Phosphatase Lactate Dehydrogenase Total Creatine Kinase CK-MB (CK-2) Rel Index Troponin T C-Reactive Protein Total Protein Albumin Prealbumin LDL Cholesterol Direct Arterial Blood Glucose Arterial Blood Ionized Calcium Urine WBC (Auto) 02/29/20 02/29/20 02/29/20 04:05 05:14 05:33 WBC RBC Hgb Hct MCV MCH RDW Plt Count Lymph % (Auto) Lymph # (Auto) [place] # (Auto) Seg Neutrophils % Seg Neuts % (Manual) Lymphocytes % (Manual) Monocytes % (Manual) Basophils % (Manual) Seg Neutrophils # Seg Neutrophils # Man Lymphocytes # (Manual) Monocytes # (Manual) Eosinophils # (Manual) Basophils # (Manual) PT INR D-Dimer ABG pH POC ABG pCO2 54.3 H POC ABG pO2 124.8 H ABG pO2 ABG HCO3 ABG O2 Saturation ABG Base Excess ABG Hemoglobin ABG Oxyhemoglobin ABG Potassium ABG Glucose 185 H Oxyhemoglobin Carboxyhemoglobin Sodium 148 H Potassium Chloride Carbon Dioxide 33 H BUN Creatinine < 0.2 L Glucose 173 H POC Glucose 152 H Calcium Ferritin Total Bilirubin Alkaline Phosphatase Lactate Dehydrogenase Total Creatine Kinase CK-MB (CK-2) Rel Index Troponin T C-Reactive Protein Total Protein Albumin Prealbumin LDL Cholesterol Direct Arterial Blood Glucose 185 H Arterial Blood Ionized Calcium Urine WBC (Auto) 03/01/20 03/01/20 03/01/20 00:00 03:45 04:33 WBC 23.1 H RBC Hgb Hct MCV MCH 27 L RDW 15.3 H Plt Count Lymph % (Auto) Lymph # (Auto) [place] # (Auto) Seg Neutrophils % Seg Neuts % (Manual) 92.0 H Lymphocytes % (Manual) 6.0 L Monocytes % (Manual) Basophils % (Manual) Seg Neutrophils # Seg Neutrophils # Man 21.3 H Lymphocytes # (Manual) Monocytes # (Manual) Eosinophils # (Manual) 0.5 H Basophils # (Manual) PT INR D-Dimer ABG pH 7.492 H POC ABG pCO2 POC ABG pO2 ABG pO2 157.1 H ABG HCO3 32.3 H ABG O2 Saturation ABG Base Excess 8.1 H ABG Hemoglobin 13.2 L ABG Oxyhemoglobin ABG Potassium ABG Glucose Oxyhemoglobin Carboxyhemoglobin Sodium Potassium Chloride Carbon Dioxide BUN Creatinine Glucose POC Glucose 109 H Calcium Ferritin Total Bilirubin Alkaline Phosphatase Lactate Dehydrogenase Total Creatine Kinase CK-MB (CK-2) Rel Index Troponin T C-Reactive Protein Total Protein Albumin Prealbumin LDL Cholesterol Direct Arterial Blood Glucose Arterial Blood Ionized Calcium Urine WBC (Auto) 03/01/20 03/01/20 03/01/20 04:33 05:29 12:32 WBC RBC Hgb Hct MCV MCH RDW Plt Count Lymph % (Auto) Lymph # (Auto) [place] # (Auto) Seg Neutrophils % Seg Neuts % (Manual) Lymphocytes % (Manual) Monocytes % (Manual) Basophils % (Manual) Seg Neutrophils # Seg Neutrophils # Man Lymphocytes # (Manual) Monocytes # (Manual) Eosinophils # (Manual) Basophils # (Manual) PT INR D-Dimer ABG pH POC ABG pCO2 POC ABG pO2 ABG pO2 ABG HCO3 ABG O2 Saturation ABG Base Excess ABG Hemoglobin ABG Oxyhemoglobin ABG Potassium ABG Glucose Oxyhemoglobin Carboxyhemoglobin Sodium 146 H Potassium Chloride Carbon Dioxide 32 H BUN Creatinine < 0.2 L Glucose 120 H POC Glucose 120 H 128 H Calcium Ferritin Total Bilirubin Alkaline Phosphatase Lactate Dehydrogenase Total Creatine Kinase CK-MB (CK-2) Rel Index Troponin T C-Reactive Protein Total Protein Albumin Prealbumin LDL Cholesterol Direct Arterial Blood Glucose Arterial Blood Ionized Calcium Urine WBC (Auto) 03/01/20 03/01/20 03/02/20 17:38 23:46 06:13 WBC RBC Hgb Hct MCV MCH RDW Plt Count Lymph % (Auto) Lymph # (Auto) [place] # (Auto) Seg Neutrophils % Seg Neuts % (Manual) Lymphocytes % (Manual) Monocytes % (Manual) Basophils % (Manual) Seg Neutrophils # Seg Neutrophils # Man Lymphocytes # (Manual) Monocytes # (Manual) Eosinophils # (Manual) Basophils # (Manual) PT INR D-Dimer ABG pH POC ABG pCO2 POC ABG pO2 ABG pO2 ABG HCO3 ABG O2 Saturation ABG Base Excess ABG Hemoglobin ABG Oxyhemoglobin ABG Potassium ABG Glucose Oxyhemoglobin Carboxyhemoglobin Sodium Potassium Chloride Carbon Dioxide BUN Creatinine Glucose POC Glucose 114 H 121 H 120 H Calcium Ferritin Total Bilirubin Alkaline Phosphatase Lactate Dehydrogenase Total Creatine Kinase CK-MB (CK-2) Rel Index Troponin T C-Reactive Protein Total Protein Albumin Prealbumin LDL Cholesterol Direct Arterial Blood Glucose Arterial Blood Ionized Calcium Urine WBC (Auto) 03/02/20 03/02/20 03/03/20 09:47 09:47 10:21 WBC 23.6 H RBC Hgb Hct MCV MCH RDW 15.3 H Plt Count 494 H Lymph % (Auto) Lymph # (Auto) [place] # (Auto) Seg Neutrophils % Seg Neuts % (Manual) 85.0 H Lymphocytes % (Manual) 6.0 L Monocytes % (Manual) Basophils % (Manual) Seg Neutrophils # Seg Neutrophils # Man 20.1 H Lymphocytes # (Manual) Monocytes # (Manual) 1.7 H Eosinophils # (Manual) Basophils # (Manual) PT INR D-Dimer ABG pH POC ABG pCO2 POC ABG pO2 ABG pO2 ABG HCO3 ABG O2 Saturation ABG Base Excess ABG Hemoglobin ABG Oxyhemoglobin ABG Potassium 3.3 L ABG Glucose 158 H Oxyhemoglobin Carboxyhemoglobin Sodium Potassium Chloride Carbon Dioxide BUN Creatinine < 0.2 L Glucose 177 H POC Glucose Calcium Ferritin Total Bilirubin Alkaline Phosphatase Lactate Dehydrogenase Total Creatine Kinase CK-MB (CK-2) Rel Index Troponin T C-Reactive Protein Total Protein Albumin Prealbumin LDL Cholesterol Direct Arterial Blood Glucose 158 H Arterial Blood Ionized Calcium Urine WBC (Auto) 03/03/20 03/04/2003/04/20 21:30 00:00 12:23 WBC RBC Hgb Hct MCV MCH RDW Plt Count Lymph % (Auto) Lymph # (Auto) [place] # (Auto) Seg Neutrophils % Seg Neuts % (Manual) Lymphocytes % (Manual) Monocytes % (Manual) Basophils % (Manual) Seg Neutrophils # Seg Neutrophils # Man Lymphocytes # (Manual) Monocytes # (Manual) Eosinophils # (Manual) Basophils # (Manual) PT INR D-Dimer ABG pH 7.328 L POC ABG pCO2 POC ABG pO2 ABG pO2 68.4 L ABG HCO3 35.0 H ABG O2 Saturation 93.9 L ABG Base Excess 6.8 H ABG Hemoglobin 12.7 L ABG Oxyhemoglobin ABG Potassium ABG Glucose Oxyhemoglobin 91.9 L Carboxyhemoglobin Sodium Potassium Chloride Carbon Dioxide BUN Creatinine Glucose POC Glucose 187 H 163 H Calcium Ferritin Total Bilirubin Alkaline Phosphatase Lactate Dehydrogenase Total Creatine Kinase CK-MB (CK-2) Rel Index Troponin T C-Reactive Protein Total Protein Albumin Prealbumin LDL Cholesterol Direct Arterial Blood Glucose Arterial Blood Ionized Calcium Urine WBC (Auto) 03/04/20 03/04/20 03/05/20 18:15 21:30 06:02 WBC RBC Hgb Hct MCV MCH RDW Plt Count Lymph % (Auto) Lymph # (Auto) [place] # (Auto) Seg Neutrophils % Seg Neuts % (Manual) Lymphocytes % (Manual) Monocytes % (Manual) Basophils % (Manual) Seg Neutrophils # Seg Neutrophils # Man Lymphocytes # (Manual) Monocytes # (Manual) Eosinophils # (Manual) Basophils # (Manual) PT INR D-Dimer ABG pH 7.297 L POC ABG pCO2 POC ABG pO2 ABG pO2 ABG HCO3 41.0 H ABG O2 Saturation ABG Base Excess 11.0 H ABG Hemoglobin 13.1 L ABG Oxyhemoglobin ABG Potassium ABG Glucose Oxyhemoglobin 94.5 L Carboxyhemoglobin Sodium Potassium Chloride Carbon Dioxide BUN Creatinine Glucose POC Glucose 192 H 127 H Calcium Ferritin Total Bilirubin Alkaline Phosphatase Lactate Dehydrogenase Total Creatine Kinase CK-MB (CK-2) Rel Index Troponin T C-Reactive Protein Total Protein Albumin Prealbumin LDL Cholesterol Direct Arterial Blood Glucose Arterial Blood Ionized Calcium Urine WBC (Auto) 03/05/20 03/05/20 03/06/20 12:09 16:42 00:24 WBC RBC Hgb Hct MCV MCH RDW Plt Count Lymph % (Auto) Lymph # (Auto) [place] # (Auto) Seg Neutrophils % Seg Neuts % (Manual) Lymphocytes % (Manual) Monocytes % (Manual) Basophils % (Manual) Seg Neutrophils # Seg Neutrophils # Man Lymphocytes # (Manual) Monocytes # (Manual) Eosinophils # (Manual) Basophils # (Manual) PT INR D-Dimer ABG pH POC ABG pCO2 POC ABG pO2 ABG pO2 ABG HCO3 ABG O2 Saturation ABG Base Excess ABG Hemoglobin ABG Oxyhemoglobin ABG Potassium ABG Glucose Oxyhemoglobin Carboxyhemoglobin Sodium Potassium Chloride Carbon Dioxide BUN Creatinine Glucose POC Glucose 147 H 114 H 134 H Calcium Ferritin Total Bilirubin Alkaline Phosphatase Lactate Dehydrogenase Total Creatine Kinase CK-MB (CK-2) Rel Index Troponin T C-Reactive Protein Total Protein Albumin Prealbumin LDL Cholesterol Direct Arterial Blood Glucose Arterial Blood Ionized Calcium Urine WBC (Auto) 03/06/20 03/06/20 03/06/20 04:34 05:53 06:08 WBC 25.4 H RBC Hgb 10.5 L Hct 32.7 L MCV MCH 27 L RDW 15.3 H Plt Count 634 H Lymph % (Auto) Lymph # (Auto) [place] # (Auto) Seg Neutrophils % Seg Neuts % (Manual) 88.0 H Lymphocytes % (Manual) 2.0 L Monocytes % (Manual) 8.0 H Basophils % (Manual) Seg Neutrophils # Seg Neutrophils # Man 22.4 H Lymphocytes # (Manual) 0.5 L Monocytes # (Manual) 2.0 H Eosinophils # (Manual) Basophils # (Manual) PT INR D-Dimer ABG pH POC ABG pCO2 POC ABG pO2 ABG pO2 ABG HCO3 37.9 H ABG O2 Saturation ABG Base Excess 11.4 H ABG Hemoglobin 10.6 L ABG Oxyhemoglobin ABG Potassium ABG Glucose Oxyhemoglobin 94.7 L Carboxyhemoglobin Sodium Potassium Chloride Carbon Dioxide BUN Creatinine Glucose POC Glucose 135 H Calcium Ferritin Total Bilirubin Alkaline Phosphatase Lactate Dehydrogenase Total Creatine Kinase CK-MB (CK-2) Rel Index Troponin T C-Reactive Protein Total Protein Albumin Prealbumin LDL Cholesterol Direct Arterial Blood Glucose Arterial Blood Ionized Calcium Urine WBC (Auto) 03/06/20 03/06/20 03/06/20 06:08 12:19 19:10 WBC RBC Hgb Hct MCV MCH RDW Plt Count Lymph % (Auto) Lymph # (Auto) [place] # (Auto) Seg Neutrophils % Seg Neuts % (Manual) Lymphocytes % (Manual) Monocytes % (Manual) Basophils % (Manual) Seg Neutrophils # Seg Neutrophils # Man Lymphocytes # (Manual) Monocytes # (Manual) Eosinophils # (Manual) Basophils # (Manual) PT INR D-Dimer ABG pH POC ABG pCO2 POC ABG pO2 ABG pO2 ABG HCO3 ABG O2 Saturation ABG Base Excess ABG Hemoglobin ABG Oxyhemoglobin ABG Potassium ABG Glucose Oxyhemoglobin Carboxyhemoglobin Sodium 150 H D Potassium Chloride Carbon Dioxide 39 H D BUN 23 H Creatinine < 0.2 L Glucose 144 H POC Glucose 169 H 152 H Calcium Ferritin Total Bilirubin Alkaline Phosphatase Lactate Dehydrogenase Total Creatine Kinase CK-MB (CK-2) Rel Index Troponin T C-Reactive Protein Total Protein Albumin 3.3 L Prealbumin LDL Cholesterol Direct Arterial Blood Glucose Arterial Blood Ionized Calcium Urine WBC (Auto) 03/06/20 03/07/20 03/07/20 23:58 04:25 04:25 WBC 22.1 H RBC Hgb 10.9 L Hct 32.9 L MCV MCH RDW 15.5 H Plt Count 739 H Lymph % (Auto) 7.8 L Lymph # (Auto) [place] # (Auto) 1.3 H Seg Neutrophils % 85.5 H Seg Neuts % (Manual) Lymphocytes % (Manual) Monocytes % (Manual) Basophils % (Manual) Seg Neutrophils # 18.9 H Seg Neutrophils # Man Lymphocytes # (Manual) Monocytes # (Manual) Eosinophils # (Manual) Basophils # (Manual) PT INR D-Dimer ABG pH POC ABG pCO2 POC ABG pO2 ABG pO2 ABG HCO3 ABG O2 Saturation ABG Base Excess ABG Hemoglobin ABG Oxyhemoglobin ABG Potassium ABG Glucose Oxyhemoglobin Carboxyhemoglobin Sodium 146 H Potassium Chloride Carbon Dioxide 37 H BUN Creatinine < 0.2 L Glucose 118 H POC Glucose 111 H Calcium Ferritin Total Bilirubin Alkaline Phosphatase Lactate Dehydrogenase Total Creatine Kinase CK-MB (CK-2) Rel Index Troponin T C-Reactive Protein Total Protein Albumin 3.7 L Prealbumin LDL Cholesterol Direct Arterial Blood Glucose Arterial Blood Ionized Calcium Urine WBC (Auto) 03/07/20 03/07/20 03/07/20 05:20 17:45 23:32 WBC RBC Hgb Hct MCV MCH RDW Plt Count Lymph % (Auto) Lymph # (Auto) [place] # (Auto) Seg Neutrophils % Seg Neuts % (Manual) Lymphocytes % (Manual) Monocytes % (Manual) Basophils % (Manual) Seg Neutrophils # Seg Neutrophils # Man Lymphocytes # (Manual) Monocytes # (Manual) Eosinophils # (Manual) Basophils # (Manual) PT INR D-Dimer ABG pH POC ABG pCO2 POC ABG pO2 ABG pO2 ABG HCO3 ABG O2 Saturation ABG Base Excess ABG Hemoglobin ABG Oxyhemoglobin ABG Potassium ABG Glucose Oxyhemoglobin Carboxyhemoglobin Sodium Potassium Chloride Carbon Dioxide BUN Creatinine Glucose POC Glucose 113 H 124 H 210 H Calcium Ferritin Total Bilirubin Alkaline Phosphatase Lactate Dehydrogenase Total Creatine Kinase CK-MB (CK-2) Rel Index Troponin T C-Reactive Protein Total Protein Albumin Prealbumin LDL Cholesterol Direct Arterial Blood Glucose Arterial Blood Ionized Calcium Urine WBC (Auto) 03/08/20 03/08/20 03/08/20 05:35 06:43 06:43 WBC 28.9 H RBC 3.53 L Hgb 9.7 L Hct 30.3 L MCV MCH RDW 15.6 H Plt Count 578 H Lymph % (Auto) Lymph # (Auto) [place] # (Auto) Seg Neutrophils % Seg Neuts % (Manual) 93.0 H Lymphocytes % (Manual) 4.0 L Monocytes % (Manual) Basophils % (Manual) Seg Neutrophils # Seg Neutrophils # Man 26.9 H Lymphocytes # (Manual) Monocytes # (Manual) Eosinophils # (Manual) Basophils # (Manual) PT INR D-Dimer ABG pH POC ABG pCO2 POC ABG pO2 ABG pO2 ABG HCO3 ABG O2 Saturation ABG Base Excess ABG Hemoglobin ABG Oxyhemoglobin ABG Potassium ABG Glucose Oxyhemoglobin Carboxyhemoglobin Sodium 146 H Potassium Chloride Carbon Dioxide 35 H BUN 34 H Creatinine 0.3 L D Glucose 125 H POC Glucose 147 H Calcium Ferritin Total Bilirubin Alkaline Phosphatase Lactate Dehydrogenase Total Creatine Kinase CK-MB (CK-2) Rel Index Troponin T C-Reactive Protein Total Protein 5.9 L Albumin 3.2 L Prealbumin LDL Cholesterol Direct Arterial Blood Glucose Arterial Blood Ionized Calcium Urine WBC (Auto) 03/08/20 03/08/20 03/08/20 08:57 11:14 12:34 WBC RBC Hgb Hct MCV MCH RDW Plt Count Lymph % (Auto) Lymph # (Auto) [place] # (Auto) Seg Neutrophils % Seg Neuts % (Manual) Lymphocytes % (Manual) Monocytes % (Manual) Basophils % (Manual) Seg Neutrophils # Seg Neutrophils # Man Lymphocytes # (Manual) Monocytes # (Manual) Eosinophils # (Manual) Basophils # (Manual) PT INR D-Dimer ABG pH POC ABG pCO2 63.1 H POC ABG pO2 ABG pO2 ABG HCO3 ABG O2 Saturation ABG Base Excess ABG Hemoglobin 10.9 L ABG Oxyhemoglobin ABG Potassium ABG Glucose 176 H Oxyhemoglobin Carboxyhemoglobin Sodium Potassium Chloride Carbon Dioxide BUN Creatinine Glucose POC Glucose 171 H Calcium Ferritin Total Bilirubin Alkaline Phosphatase Lactate Dehydrogenase Total Creatine Kinase CK-MB (CK-2) Rel Index Troponin T C-Reactive Protein Total Protein Albumin Prealbumin LDL Cholesterol Direct Arterial Blood Glucose 176 H Arterial Blood Ionized Calcium 4.5 L Urine WBC (Auto) 10.0 H 03/08/20 03/08/20 03/09/20 18:02 23:43 05:49 WBC RBC Hgb Hct MCV MCH RDW Plt Count Lymph % (Auto) Lymph # (Auto) [place] # (Auto) Seg Neutrophils % Seg Neuts % (Manual) Lymphocytes % (Manual) Monocytes % (Manual) Basophils % (Manual) Seg Neutrophils # Seg Neutrophils # Man Lymphocytes # (Manual) Monocytes # (Manual) Eosinophils # (Manual) Basophils # (Manual) PT INR D-Dimer ABG pH POC ABG pCO2 POC ABG pO2 ABG pO2 ABG HCO3 ABG O2 Saturation ABG Base Excess ABG Hemoglobin ABG Oxyhemoglobin ABG Potassium ABG Glucose Oxyhemoglobin Carboxyhemoglobin Sodium Potassium Chloride Carbon Dioxide BUN Creatinine Glucose POC Glucose 157 H 134 H 163 H Calcium Ferritin Total Bilirubin Alkaline Phosphatase Lactate Dehydrogenase Total Creatine Kinase CK-MB (CK-2) Rel Index Troponin T C-Reactive Protein Total Protein Albumin Prealbumin LDL Cholesterol Direct Arterial Blood Glucose Arterial Blood Ionized Calcium Urine WBC (Auto) 03/09/20 03/09/20 03/09/20 08:35 08:35 12:11 WBC 23.4 H RBC 3.36 L Hgb 9.3 L Hct 28.8 L MCV MCH RDW 15.9 H Plt Count 521 H Lymph % (Auto) Lymph # (Auto) [place] # (Auto) Seg Neutrophils % Seg Neuts % (Manual) 87.0 H Lymphocytes % (Manual) 4.0 L Monocytes % (Manual) 9.0 H Basophils % (Manual) Seg Neutrophils # Seg Neutrophils # Man 20.4 H Lymphocytes # (Manual) 0.9 L Monocytes # (Manual) 2.1 H Eosinophils # (Manual) Basophils # (Manual) PT INR D-Dimer ABG pH POC ABG pCO2 POC ABG pO2 ABG pO2 ABG HCO3 ABG O2 Saturation ABG Base Excess ABG Hemoglobin ABG Oxyhemoglobin ABG Potassium ABG Glucose Oxyhemoglobin Carboxyhemoglobin Sodium 147 H Potassium Chloride Carbon Dioxide 37 H BUN 63 H Creatinine Glucose 154 H POC Glucose 128 H Calcium Ferritin Total Bilirubin Alkaline Phosphatase Lactate Dehydrogenase Total Creatine Kinase CK-MB (CK-2) Rel Index Troponin T C-Reactive Protein Total Protein Albumin Prealbumin LDL Cholesterol Direct Arterial Blood Glucose Arterial Blood Ionized Calcium Urine WBC (Auto) 03/09/20 03/10/20 03/10/20 17:51 00:25 05:41 WBC RBC Hgb Hct MCV MCH RDW Plt Count Lymph % (Auto) Lymph # (Auto) [place] # (Auto) Seg Neutrophils % Seg Neuts % (Manual) Lymphocytes % (Manual) Monocytes % (Manual) Basophils % (Manual) Seg Neutrophils # Seg Neutrophils # Man Lymphocytes # (Manual) Monocytes # (Manual) Eosinophils # (Manual) Basophils # (Manual) PT INR D-Dimer ABG pH POC ABG pCO2 POC ABG pO2 ABG pO2 ABG HCO3 ABG O2 Saturation ABG Base Excess ABG Hemoglobin ABG Oxyhemoglobin ABG Potassium ABG Glucose Oxyhemoglobin Carboxyhemoglobin Sodium Potassium Chloride Carbon Dioxide BUN Creatinine Glucose POC Glucose 127 H 128 H 153 H Calcium Ferritin Total Bilirubin Alkaline Phosphatase Lactate Dehydrogenase Total Creatine Kinase CK-MB (CK-2) Rel Index Troponin T C-Reactive Protein Total Protein Albumin Prealbumin LDL Cholesterol Direct Arterial Blood Glucose Arterial Blood Ionized Calcium Urine WBC (Auto) 03/10/20 03/10/20 03/10/20 06:14 06:14 12:02 WBC 18.3 H RBC 3.45 L Hgb 9.5 L Hct 29.5 L MCV MCH RDW 16.1 H Plt Count 494 H Lymph % (Auto) Lymph # (Auto) [place] # (Auto) Seg Neutrophils % Seg Neuts % (Manual) 95.0 H Lymphocytes % (Manual) 1.0 L Monocytes % (Manual) Basophils % (Manual) Seg Neutrophils # Seg Neutrophils # Man 17.4 H Lymphocytes # (Manual) 0.2 L Monocytes # (Manual) Eosinophils # (Manual) Basophils # (Manual) PT INR D-Dimer ABG pH POC ABG pCO2 POC ABG pO2 ABG pO2 ABG HCO3 ABG O2 Saturation ABG Base Excess ABG Hemoglobin ABG Oxyhemoglobin ABG Potassium ABG Glucose Oxyhemoglobin Carboxyhemoglobin Sodium 149 H Potassium Chloride Carbon Dioxide 35 H BUN 34 H Creatinine 0.2 L D Glucose 177 H POC Glucose 151 H Calcium Ferritin Total Bilirubin Alkaline Phosphatase Lactate Dehydrogenase Total Creatine Kinase CK-MB (CK-2) Rel Index Troponin T C-Reactive Protein Total Protein Albumin Prealbumin LDL Cholesterol Direct Arterial Blood Glucose Arterial Blood Ionized Calcium Urine WBC (Auto) 03/10/20 03/10/20 03/11/20 17:41 23:53 05:02 WBC RBC Hgb Hct MCV MCH RDW Plt Count Lymph % (Auto) Lymph # (Auto) [place] # (Auto) Seg Neutrophils % Seg Neuts % (Manual) Lymphocytes % (Manual) Monocytes % (Manual) Basophils % (Manual) Seg Neutrophils # Seg Neutrophils # Man Lymphocytes # (Manual) Monocytes # (Manual) Eosinophils # (Manual) Basophils # (Manual) PT INR D-Dimer ABG pH POC ABG pCO2 POC ABG pO2 ABG pO2 ABG HCO3 ABG O2 Saturation ABG Base Excess ABG Hemoglobin ABG Oxyhemoglobin ABG Potassium ABG Glucose Oxyhemoglobin Carboxyhemoglobin Sodium Potassium Chloride Carbon Dioxide BUN Creatinine Glucose POC Glucose 168 H 142 H 146 H Calcium Ferritin Total Bilirubin Alkaline Phosphatase Lactate Dehydrogenase Total Creatine Kinase CK-MB (CK-2) Rel Index Troponin T C-Reactive Protein Total Protein Albumin Prealbumin LDL Cholesterol Direct Arterial Blood Glucose Arterial Blood Ionized Calcium Urine WBC (Auto) 03/11/20 03/11/20 03/11/20 11:30 14:01 14:01 WBC 19.7 H RBC 3.04 L Hgb 8.7 L Hct 25.8 L MCV MCH RDW 15.6 H Plt Count Lymph % (Auto) Lymph # (Auto) [place] # (Auto) Seg Neutrophils % Seg Neuts % (Manual) Lymphocytes % (Manual) Monocytes % (Manual) Basophils % (Manual) Seg Neutrophils # Seg Neutrophils # Man Lymphocytes # (Manual) Monocytes # (Manual) Eosinophils # (Manual) Basophils # (Manual) PT INR D-Dimer ABG pH POC ABG pCO2 POC ABG pO2 ABG pO2 ABG HCO3 ABG O2 Saturation ABG Base Excess ABG Hemoglobin ABG Oxyhemoglobin ABG Potassium ABG Glucose Oxyhemoglobin Carboxyhemoglobin Sodium 151 H Potassium Chloride Carbon Dioxide 37 H BUN Creatinine < 0.2 L Glucose 171 H POC Glucose 248 H Calcium Ferritin Total Bilirubin Alkaline Phosphatase Lactate Dehydrogenase Total Creatine Kinase CK-MB (CK-2) Rel Index Troponin T C-Reactive Protein Total Protein Albumin Prealbumin LDL Cholesterol Direct Arterial Blood Glucose Arterial Blood Ionized Calcium Urine WBC (Auto) 03/11/20 03/11/20 03/12/20 17:09 23:52 04:39 WBC 19.9 H RBC 3.16 L Hgb 8.9 L Hct 27.5 L MCV MCH RDW 15.7 H Plt Count Lymph % (Auto) 6.8 L Lymph # (Auto) [place] # (Auto) 1.2 H Seg Neutrophils % 86.0 H Seg Neuts % (Manual) Lymphocytes % (Manual) Monocytes % (Manual) Basophils % (Manual) Seg Neutrophils # 17.1 H Seg Neutrophils # Man Lymphocytes # (Manual) Monocytes # (Manual) Eosinophils # (Manual) Basophils # (Manual) PT INR D-Dimer ABG pH POC ABG pCO2 POC ABG pO2 ABG pO2 ABG HCO3 ABG O2 Saturation ABG Base Excess ABG Hemoglobin ABG Oxyhemoglobin ABG Potassium ABG Glucose Oxyhemoglobin Carboxyhemoglobin Sodium Potassium Chloride Carbon Dioxide BUN Creatinine Glucose POC Glucose 124 H 131 H Calcium Ferritin Total Bilirubin Alkaline Phosphatase Lactate Dehydrogenase Total Creatine Kinase CK-MB (CK-2) Rel Index Troponin T C-Reactive Protein Total Protein Albumin Prealbumin LDL Cholesterol Direct Arterial Blood Glucose Arterial Blood Ionized Calcium Urine WBC (Auto) 03/12/20 03/12/20 03/12/20 04:39 05:28 11:34 WBC RBC Hgb Hct MCV MCH RDW Plt Count Lymph % (Auto) Lymph # (Auto) [place] # (Auto) Seg Neutrophils % Seg Neuts % (Manual) Lymphocytes % (Manual) Monocytes % (Manual) Basophils % (Manual) Seg Neutrophils # Seg Neutrophils # Man Lymphocytes # (Manual) Monocytes # (Manual) Eosinophils # (Manual) Basophils # (Manual) PT INR D-Dimer ABG pH POC ABG pCO2 POC ABG pO2 ABG pO2 ABG HCO3 ABG O2 Saturation ABG Base Excess ABG Hemoglobin ABG Oxyhemoglobin ABG Potassium ABG Glucose Oxyhemoglobin Carboxyhemoglobin Sodium 147 H Potassium Chloride Carbon Dioxide 40 H BUN Creatinine < 0.2 L Glucose 175 H POC Glucose 167 H 144 H Calcium Ferritin Total Bilirubin Alkaline Phosphatase Lactate Dehydrogenase Total Creatine Kinase CK-MB (CK-2) Rel Index Troponin T C-Reactive Protein Total Protein Albumin Prealbumin LDL Cholesterol Direct Arterial Blood Glucose Arterial Blood Ionized Calcium Urine WBC (Auto) 03/12/20 03/12/20 03/13/20 17:32 23:57 05:57 WBC RBC Hgb Hct MCV MCH RDW Plt Count Lymph % (Auto) Lymph # (Auto) [place] # (Auto) Seg Neutrophils % Seg Neuts % (Manual) Lymphocytes % (Manual) Monocytes % (Manual) Basophils % (Manual) Seg Neutrophils # Seg Neutrophils # Man Lymphocytes # (Manual) Monocytes # (Manual) Eosinophils # (Manual) Basophils # (Manual) PT INR D-Dimer ABG pH POC ABG pCO2 POC ABG pO2 ABG pO2 ABG HCO3 ABG O2 Saturation ABG Base Excess ABG Hemoglobin ABG Oxyhemoglobin ABG Potassium ABG Glucose Oxyhemoglobin Carboxyhemoglobin Sodium Potassium Chloride Carbon Dioxide BUN Creatinine Glucose POC Glucose 141 H 137 H 161 H Calcium Ferritin Total Bilirubin Alkaline Phosphatase Lactate Dehydrogenase Total Creatine Kinase CK-MB (CK-2) Rel Index Troponin T C-Reactive Protein Total Protein Albumin Prealbumin LDL Cholesterol Direct Arterial Blood Glucose Arterial Blood Ionized Calcium Urine WBC (Auto) 03/13/20 03/13/20 03/13/20 12:28 14:14 18:39 WBC RBC Hgb Hct MCV MCH RDW Plt Count Lymph % (Auto) Lymph # (Auto) [place] # (Auto) Seg Neutrophils % Seg Neuts % (Manual) Lymphocytes % (Manual) Monocytes % (Manual) Basophils % (Manual) Seg Neutrophils # Seg Neutrophils # Man Lymphocytes # (Manual) Monocytes # (Manual) Eosinophils # (Manual) Basophils # (Manual) PT INR D-Dimer ABG pH POC ABG pCO2 POC ABG pO2 ABG pO2 ABG HCO3 ABG O2 Saturation ABG Base Excess ABG Hemoglobin ABG Oxyhemoglobin ABG Potassium ABG Glucose Oxyhemoglobin Carboxyhemoglobin Sodium Potassium Chloride Carbon Dioxide 39 H BUN Creatinine < 0.2 L Glucose 129 H POC Glucose 130 H 125 H Calcium Ferritin Total Bilirubin Alkaline Phosphatase Lactate Dehydrogenase Total Creatine Kinase CK-MB (CK-2) Rel Index Troponin T C-Reactive Protein Total Protein Albumin Prealbumin LDL Cholesterol Direct Arterial Blood Glucose Arterial Blood Ionized Calcium Urine WBC (Auto) 03/13/20 03/14/20 03/14/20 23:33 05:24 08:07 WBC 16.8 H RBC 2.81 L Hgb 7.9 L Hct 23.9 L MCV MCH RDW 15.9 H Plt Count Lymph % (Auto) Lymph # (Auto) [place] # (Auto) Seg Neutrophils % Seg Neuts % (Manual) 84.0 H Lymphocytes % (Manual) 10.0 L Monocytes % (Manual) Basophils % (Manual) Seg Neutrophils # Seg Neutrophils # Man 14.1 H Lymphocytes # (Manual) Monocytes # (Manual) Eosinophils # (Manual) Basophils # (Manual) PT INR D-Dimer ABG pH POC ABG pCO2 POC ABG pO2 ABG pO2 ABG HCO3 ABG O2 Saturation ABG Base Excess ABG Hemoglobin ABG Oxyhemoglobin ABG Potassium ABG Glucose Oxyhemoglobin Carboxyhemoglobin Sodium Potassium Chloride Carbon Dioxide BUN Creatinine Glucose POC Glucose 146 H 125 H Calcium Ferritin Total Bilirubin Alkaline Phosphatase Lactate Dehydrogenase Total Creatine Kinase CK-MB (CK-2) Rel Index Troponin T C-Reactive Protein Total Protein Albumin Prealbumin LDL Cholesterol Direct Arterial Blood Glucose Arterial Blood Ionized Calcium Urine WBC (Auto) 03/14/20 03/14/20 03/14/20 08:07 12:21 18:26 WBC RBC Hgb Hct MCV MCH RDW Plt Count Lymph % (Auto) Lymph # (Auto) [place] # (Auto) Seg Neutrophils % Seg Neuts % (Manual) Lymphocytes % (Manual) Monocytes % (Manual) Basophils % (Manual) Seg Neutrophils # Seg Neutrophils # Man Lymphocytes # (Manual) Monocytes # (Manual) Eosinophils # (Manual) Basophils # (Manual) PT INR D-Dimer ABG pH POC ABG pCO2 POC ABG pO2 ABG pO2 ABG HCO3 ABG O2 Saturation ABG Base Excess ABG Hemoglobin ABG Oxyhemoglobin ABG Potassium ABG Glucose Oxyhemoglobin Carboxyhemoglobin Sodium Potassium Chloride 97.0 L Carbon Dioxide 37 H BUN Creatinine < 0.2 L Glucose 129 H POC Glucose 109 H 142 H Calcium 8.3 L Ferritin Total Bilirubin Alkaline Phosphatase Lactate Dehydrogenase Total Creatine Kinase CK-MB (CK-2) Rel Index Troponin T C-Reactive Protein Total Protein Albumin Prealbumin LDL Cholesterol Direct Arterial Blood Glucose Arterial Blood Ionized Calcium Urine WBC (Auto) 03/14/20 03/15/20 03/15/20 23:57 05:46 08:06 WBC 19.7 H RBC 3.29 L Hgb 9.1 L Hct 28.0 L MCV MCH RDW 15.9 H Plt Count Lymph % (Auto) Lymph # (Auto) [place] # (Auto) Seg Neutrophils % Seg Neuts % (Manual) Lymphocytes % (Manual) Monocytes % (Manual) Basophils % (Manual) Seg Neutrophils # Seg Neutrophils # Man Lymphocytes # (Manual) Monocytes # (Manual) Eosinophils # (Manual) Basophils # (Manual) PT INR D-Dimer ABG pH POC ABG pCO2 POC ABG pO2 ABG pO2 ABG HCO3 ABG O2 Saturation ABG Base Excess ABG Hemoglobin ABG Oxyhemoglobin ABG Potassium ABG Glucose Oxyhemoglobin Carboxyhemoglobin Sodium Potassium Chloride Carbon Dioxide BUN Creatinine Glucose POC Glucose 157 H 118 H Calcium Ferritin Total Bilirubin Alkaline Phosphatase Lactate Dehydrogenase Total Creatine Kinase CK-MB (CK-2) Rel Index Troponin T C-Reactive Protein Total Protein Albumin Prealbumin LDL Cholesterol Direct Arterial Blood Glucose Arterial Blood Ionized Calcium Urine WBC (Auto) 03/15/20 03/15/20 03/15/20 08:06 12:44 18:09 WBC RBC Hgb Hct MCV MCH RDW Plt Count Lymph % (Auto) Lymph # (Auto) [place] # (Auto) Seg Neutrophils % Seg Neuts % (Manual) Lymphocytes % (Manual) Monocytes % (Manual) Basophils % (Manual) Seg Neutrophils # Seg Neutrophils # Man Lymphocytes # (Manual) Monocytes # (Manual) Eosinophils # (Manual) Basophils # (Manual) PT INR D-Dimer ABG pH POC ABG pCO2 POC ABG pO2 ABG pO2 ABG HCO3 ABG O2 Saturation ABG Base Excess ABG Hemoglobin ABG Oxyhemoglobin ABG Potassium ABG Glucose Oxyhemoglobin Carboxyhemoglobin Sodium 136 L Potassium Chloride 93.6 L Carbon Dioxide 37 H BUN Creatinine < 0.2 L Glucose 132 H POC Glucose 151 H 164 H Calcium Ferritin Total Bilirubin Alkaline Phosphatase Lactate Dehydrogenase Total Creatine Kinase CK-MB (CK-2) Rel Index Troponin T C-Reactive Protein Total Protein Albumin Prealbumin LDL Cholesterol Direct Arterial Blood Glucose Arterial Blood Ionized Calcium Urine WBC (Auto) 03/15/20 03/16/20 03/16/20 23:26 05:39 11:58 WBC RBC Hgb Hct MCV MCH RDW Plt Count Lymph % (Auto) Lymph # (Auto) [place] # (Auto) Seg Neutrophils % Seg Neuts % (Manual) Lymphocytes % (Manual) Monocytes % (Manual) Basophils % (Manual) Seg Neutrophils # Seg Neutrophils # Man Lymphocytes # (Manual) Monocytes # (Manual) Eosinophils # (Manual) Basophils # (Manual) PT INR D-Dimer ABG pH POC ABG pCO2 POC ABG pO2 ABG pO2 ABG HCO3 ABG O2 Saturation ABG Base Excess ABG Hemoglobin ABG Oxyhemoglobin ABG Potassium ABG Glucose Oxyhemoglobin Carboxyhemoglobin Sodium Potassium Chloride Carbon Dioxide BUN Creatinine Glucose POC Glucose 136 H 116 H 109 H Calcium Ferritin Total Bilirubin Alkaline Phosphatase Lactate Dehydrogenase Total Creatine Kinase CK-MB (CK-2) Rel Index Troponin T C-Reactive Protein Total Protein Albumin Prealbumin LDL Cholesterol Direct Arterial Blood Glucose Arterial Blood Ionized Calcium Urine WBC (Auto) 03/16/20 03/17/20 03/17/20 23:56 04:40 04:40 WBC 18.0 H RBC 3.33 L Hgb 9.5 L Hct 28.8 L MCV MCH RDW 16.4 H Plt Count 499 H Lymph % (Auto) Lymph # (Auto) [place] # (Auto) Seg Neutrophils % Seg Neuts % (Manual) 82.0 H Lymphocytes % (Manual) 8.0 L Monocytes % (Manual) Basophils % (Manual) Seg Neutrophils # Seg Neutrophils # Man 14.8 H Lymphocytes # (Manual) Monocytes # (Manual) 1.3 H Eosinophils # (Manual) Basophils # (Manual) 0.2 H PT INR D-Dimer ABG pH POC ABG pCO2 POC ABG pO2 ABG pO2 ABG HCO3 ABG O2 Saturation ABG Base Excess ABG Hemoglobin ABG Oxyhemoglobin ABG Potassium ABG Glucose Oxyhemoglobin Carboxyhemoglobin Sodium Potassium Chloride 97.7 L Carbon Dioxide 32 H BUN Creatinine < 0.2 L Glucose 114 H POC Glucose 131 H Calcium Ferritin Total Bilirubin Alkaline Phosphatase Lactate Dehydrogenase Total Creatine Kinase CK-MB (CK-2) Rel Index Troponin T C-Reactive Protein Total Protein Albumin Prealbumin LDL Cholesterol Direct Arterial Blood Glucose Arterial Blood Ionized Calcium Urine WBC (Auto) 03/18/20 03/18/20 03/18/20 00:21 05:21 11:55 WBC RBC Hgb Hct MCV MCH RDW Plt Count Lymph % (Auto) Lymph # (Auto) [place] # (Auto) Seg Neutrophils % Seg Neuts % (Manual) Lymphocytes % (Manual) Monocytes % (Manual) Basophils % (Manual) Seg Neutrophils # Seg Neutrophils # Man Lymphocytes # (Manual) Monocytes # (Manual) Eosinophils # (Manual) Basophils # (Manual) PT INR D-Dimer ABG pH POC ABG pCO2 POC ABG pO2 ABG pO2 ABG HCO3 ABG O2 Saturation ABG Base Excess ABG Hemoglobin ABG Oxyhemoglobin ABG Potassium ABG Glucose Oxyhemoglobin Carboxyhemoglobin Sodium Potassium Chloride Carbon Dioxide BUN Creatinine Glucose POC Glucose 124 H 138 H 119 H Calcium Ferritin Total Bilirubin Alkaline Phosphatase Lactate Dehydrogenase Total Creatine Kinase CK-MB (CK-2) Rel Index Troponin T C-Reactive Protein Total Protein Albumin Prealbumin LDL Cholesterol Direct Arterial Blood Glucose Arterial Blood Ionized Calcium Urine WBC (Auto) 03/18/20 03/18/20 03/19/20 17:03 23:58 05:24 WBC RBC Hgb Hct MCV MCH RDW Plt Count Lymph % (Auto) Lymph # (Auto) [place] # (Auto) Seg Neutrophils % Seg Neuts % (Manual) Lymphocytes % (Manual) Monocytes % (Manual) Basophils % (Manual) Seg Neutrophils # Seg Neutrophils # Man Lymphocytes # (Manual) Monocytes # (Manual) Eosinophils # (Manual) Basophils # (Manual) PT INR D-Dimer ABG pH POC ABG pCO2 POC ABG pO2 ABG pO2 ABG HCO3 ABG O2 Saturation ABG Base Excess ABG Hemoglobin ABG Oxyhemoglobin ABG Potassium ABG Glucose Oxyhemoglobin Carboxyhemoglobin Sodium Potassium Chloride Carbon Dioxide BUN Creatinine Glucose POC Glucose 128 H 128 H 115 H Calcium Ferritin Total Bilirubin Alkaline Phosphatase Lactate Dehydrogenase Total Creatine Kinase CK-MB (CK-2) Rel Index Troponin T C-Reactive Protein Total Protein Albumin Prealbumin LDL Cholesterol Direct Arterial Blood Glucose Arterial Blood Ionized Calcium Urine WBC (Auto) 03/19/20 03/19/20 03/19/20 08:05 08:05 11:56 WBC 16.8 H RBC 3.36 L Hgb 9.4 L Hct 28.8 L MCV MCH RDW 17.4 H Plt Count 567 H Lymph % (Auto) 7.8 L Lymph # (Auto) [place] # (Auto) 1.2 H Seg Neutrophils % 83.5 H Seg Neuts % (Manual) Lymphocytes % (Manual) Monocytes % (Manual) Basophils % (Manual) Seg Neutrophils # 14.1 H Seg Neutrophils # Man Lymphocytes # (Manual) Monocytes # (Manual) Eosinophils # (Manual) Basophils # (Manual) PT INR D-Dimer ABG pH POC ABG pCO2 POC ABG pO2 ABG pO2 ABG HCO3 ABG O2 Saturation ABG Base Excess ABG Hemoglobin ABG Oxyhemoglobin ABG Potassium ABG Glucose Oxyhemoglobin Carboxyhemoglobin Sodium Potassium Chloride Carbon Dioxide 36 H BUN Creatinine < 0.2 L Glucose 135 H POC Glucose 128 H Calcium Ferritin Total Bilirubin Alkaline Phosphatase Lactate Dehydrogenase Total Creatine Kinase CK-MB (CK-2) Rel Index Troponin T C-Reactive Protein Total Protein Albumin Prealbumin LDL Cholesterol Direct Arterial Blood Glucose Arterial Blood Ionized Calcium Urine WBC (Auto) 03/19/20 03/20/20 03/20/20 23:59 05:12 16:52 WBC RBC Hgb Hct MCV MCH RDW Plt Count Lymph % (Auto) Lymph # (Auto) [place] # (Auto) Seg Neutrophils % Seg Neuts % (Manual) Lymphocytes % (Manual) Monocytes % (Manual) Basophils % (Manual) Seg Neutrophils # Seg Neutrophils # Man Lymphocytes # (Manual) Monocytes # (Manual) Eosinophils # (Manual) Basophils # (Manual) PT INR D-Dimer ABG pH POC ABG pCO2 POC ABG pO2 ABG pO2 ABG HCO3 ABG O2 Saturation ABG Base Excess ABG Hemoglobin ABG Oxyhemoglobin ABG Potassium ABG Glucose Oxyhemoglobin Carboxyhemoglobin Sodium Potassium Chloride Carbon Dioxide BUN Creatinine Glucose POC Glucose 120 H 131 H 124 H Calcium Ferritin Total Bilirubin Alkaline Phosphatase Lactate Dehydrogenase Total Creatine Kinase CK-MB (CK-2) Rel Index Troponin T C-Reactive Protein Total Protein Albumin Prealbumin LDL Cholesterol Direct Arterial Blood Glucose Arterial Blood Ionized Calcium Urine WBC (Auto) 03/20/20 03/21/20 03/21/20 23:35 04:50 07:35 WBC 15.2 H RBC 3.39 L Hgb 9.4 L Hct 29.4 L MCV MCH RDW 17.6 H Plt Count 518 H Lymph % (Auto) Lymph # (Auto) [place] # (Auto) Seg Neutrophils % Seg Neuts % (Manual) 83.0 H Lymphocytes % (Manual) 10.0 L Monocytes % (Manual) Basophils % (Manual) 2.0 H Seg Neutrophils # Seg Neutrophils # Man 12.6 H Lymphocytes # (Manual) Monocytes # (Manual) Eosinophils # (Manual) Basophils # (Manual) 0.3 H PT INR D-Dimer ABG pH POC ABG pCO2 POC ABG pO2 ABG pO2 ABG HCO3 ABG O2 Saturation ABG Base Excess ABG Hemoglobin ABG Oxyhemoglobin ABG Potassium ABG Glucose Oxyhemoglobin Carboxyhemoglobin Sodium Potassium Chloride Carbon Dioxide BUN Creatinine Glucose POC Glucose 125 H 127 H Calcium Ferritin Total Bilirubin Alkaline Phosphatase Lactate Dehydrogenase Total Creatine Kinase CK-MB (CK-2) Rel Index Troponin T C-Reactive Protein Total Protein Albumin Prealbumin LDL Cholesterol Direct Arterial Blood Glucose Arterial Blood Ionized Calcium Urine WBC (Auto) 03/21/20 03/21/20 03/21/20 07:35 11:45 17:22 WBC RBC Hgb Hct MCV MCH RDW Plt Count Lymph % (Auto) Lymph # (Auto) [place] # (Auto) Seg Neutrophils % Seg Neuts % (Manual) Lymphocytes % (Manual) Monocytes % (Manual) Basophils % (Manual) Seg Neutrophils # Seg Neutrophils # Man Lymphocytes # (Manual) Monocytes # (Manual) Eosinophils # (Manual) Basophils # (Manual) PT INR D-Dimer ABG pH POC ABG pCO2 POC ABG pO2 ABG pO2 ABG HCO3 ABG O2 Saturation ABG Base Excess ABG Hemoglobin ABG Oxyhemoglobin ABG Potassium ABG Glucose Oxyhemoglobin Carboxyhemoglobin Sodium 136 L Potassium Chloride 97.7 L Carbon Dioxide 32 H BUN Creatinine < 0.2 L Glucose 103 H POC Glucose 126 H 120 H Calcium Ferritin Total Bilirubin Alkaline Phosphatase Lactate Dehydrogenase Total Creatine Kinase CK-MB (CK-2) Rel Index Troponin T C-Reactive Protein Total Protein Albumin Prealbumin LDL Cholesterol Direct Arterial Blood Glucose Arterial Blood Ionized Calcium Urine WBC (Auto) 03/22/20 03/22/20 03/22/20 05:09 06:34 06:34 WBC 17.5 H RBC 3.52 L Hgb 10.0 L Hct 30.7 L MCV MCH RDW 17.5 H Plt Count 499 H Lymph % (Auto) Lymph # (Auto) [place] # (Auto) Seg Neutrophils % Seg Neuts % (Manual) 80.0 H Lymphocytes % (Manual) 10.0 L Monocytes % (Manual) Basophils % (Manual) Seg Neutrophils # Seg Neutrophils # Man 14.0 H Lymphocytes # (Manual) Monocytes # (Manual) Eosinophils # (Manual) Basophils # (Manual) PT INR D-Dimer ABG pH POC ABG pCO2 POC ABG pO2 ABG pO2 ABG HCO3 ABG O2 Saturation ABG Base Excess ABG Hemoglobin ABG Oxyhemoglobin ABG Potassium ABG Glucose Oxyhemoglobin Carboxyhemoglobin Sodium Potassium Chloride 96.6 L Carbon Dioxide 38 H BUN Creatinine < 0.2 L Glucose 139 H POC Glucose 125 H Calcium Ferritin Total Bilirubin Alkaline Phosphatase Lactate Dehydrogenase Total Creatine Kinase CK-MB (CK-2) Rel Index Troponin T C-Reactive Protein Total Protein Albumin Prealbumin LDL Cholesterol Direct Arterial Blood Glucose Arterial Blood Ionized Calcium Urine WBC (Auto) 03/22/20 03/22/20 03/22/20 11:45 18:00 23:32 WBC RBC Hgb Hct MCV MCH RDW Plt Count Lymph % (Auto) Lymph # (Auto) [place] # (Auto) Seg Neutrophils % Seg Neuts % (Manual) Lymphocytes % (Manual) Monocytes % (Manual) Basophils % (Manual) Seg Neutrophils # Seg Neutrophils # Man Lymphocytes # (Manual) Monocytes # (Manual) Eosinophils # (Manual) Basophils # (Manual) PT INR D-Dimer ABG pH POC ABG pCO2 POC ABG pO2 ABG pO2 ABG HCO3 ABG O2 Saturation ABG Base Excess ABG Hemoglobin ABG Oxyhemoglobin ABG Potassium ABG Glucose Oxyhemoglobin Carboxyhemoglobin Sodium Potassium Chloride Carbon Dioxide BUN Creatinine Glucose POC Glucose 135 H 133 H Calcium Ferritin Total Bilirubin Alkaline Phosphatase Lactate Dehydrogenase Total Creatine Kinase CK-MB (CK-2) Rel Index Troponin T 0.113 H* C-Reactive Protein Total Protein Albumin Prealbumin LDL Cholesterol Direct Arterial Blood Glucose Arterial Blood Ionized Calcium Urine WBC (Auto) 03/23/20 03/23/20 03/23/20 01:47 06:21 07:57 WBC RBC Hgb Hct MCV MCH RDW Plt Count Lymph % (Auto) Lymph # (Auto) [place] # (Auto) Seg Neutrophils % Seg Neuts % (Manual) Lymphocytes % (Manual) Monocytes % (Manual) Basophils % (Manual) Seg Neutrophils # Seg Neutrophils # Man Lymphocytes # (Manual) Monocytes # (Manual) Eosinophils # (Manual) Basophils # (Manual) PT INR D-Dimer ABG pH POC ABG pCO2 POC ABG pO2 ABG pO2 ABG HCO3 ABG O2 Saturation ABG Base Excess ABG Hemoglobin ABG Oxyhemoglobin ABG Potassium ABG Glucose Oxyhemoglobin Carboxyhemoglobin Sodium Potassium Chloride Carbon Dioxide BUN Creatinine Glucose POC Glucose 130 H Calcium Ferritin Total Bilirubin Alkaline Phosphatase Lactate Dehydrogenase Total Creatine Kinase CK-MB (CK-2) Rel Index Troponin T 0.143 H* D 0.105 H* D C-Reactive Protein Total Protein Albumin Prealbumin LDL Cholesterol Direct Arterial Blood Glucose Arterial Blood Ionized Calcium Urine WBC (Auto) 03/23/20 03/24/20 03/24/20 12:02 05:33 07:15 WBC 18.0 H RBC Hgb 11.0 L Hct 34.0 L MCV MCH RDW 17.4 H Plt Count 520 H Lymph % (Auto) Lymph # (Auto) [place] # (Auto) Seg Neutrophils % Seg Neuts % (Manual) 88.0 H Lymphocytes % (Manual) 7.0 L Monocytes % (Manual) Basophils % (Manual) Seg Neutrophils # Seg Neutrophils # Man 15.8 H Lymphocytes # (Manual) Monocytes # (Manual) Eosinophils # (Manual) Basophils # (Manual) PT INR D-Dimer ABG pH POC ABG pCO2 POC ABG pO2 ABG pO2 ABG HCO3 ABG O2 Saturation ABG Base Excess ABG Hemoglobin ABG Oxyhemoglobin ABG Potassium ABG Glucose Oxyhemoglobin Carboxyhemoglobin Sodium Potassium Chloride Carbon Dioxide BUN Creatinine Glucose POC Glucose 137 H 112 H Calcium Ferritin Total Bilirubin Alkaline Phosphatase Lactate Dehydrogenase Total Creatine Kinase CK-MB (CK-2) Rel Index Troponin T C-Reactive Protein Total Protein Albumin Prealbumin LDL Cholesterol Direct Arterial Blood Glucose Arterial Blood Ionized Calcium Urine WBC (Auto) 03/24/20 03/24/20 03/24/20 07:15 11:22 23:30 WBC RBC Hgb Hct MCV MCH RDW Plt Count Lymph % (Auto) Lymph # (Auto) [place] # (Auto) Seg Neutrophils % Seg Neuts % (Manual) Lymphocytes % (Manual) Monocytes % (Manual) Basophils % (Manual) Seg Neutrophils # Seg Neutrophils # Man Lymphocytes # (Manual) Monocytes # (Manual) Eosinophils # (Manual) Basophils # (Manual) PT INR D-Dimer ABG pH POC ABG pCO2 POC ABG pO2 ABG pO2 ABG HCO3 ABG O2 Saturation ABG Base Excess ABG Hemoglobin ABG Oxyhemoglobin ABG Potassium ABG Glucose Oxyhemoglobin Carboxyhemoglobin Sodium Potassium Chloride 96.6 L Carbon Dioxide 38 H BUN Creatinine < 0.2 L Glucose 141 H POC Glucose 130 H 120 H Calcium Ferritin Total Bilirubin Alkaline Phosphatase Lactate Dehydrogenase Total Creatine Kinase CK-MB (CK-2) Rel Index Troponin T C-Reactive Protein Total Protein Albumin Prealbumin LDL Cholesterol Direct Arterial Blood Glucose Arterial Blood Ionized Calcium Urine WBC (Auto) 03/25/20 03/25/20 03/25/20 05:48 17:53 23:18 WBC RBC Hgb Hct MCV MCH RDW Plt Count Lymph % (Auto) Lymph # (Auto) [place] # (Auto) Seg Neutrophils % Seg Neuts % (Manual) Lymphocytes % (Manual) Monocytes % (Manual) Basophils % (Manual) Seg Neutrophils # Seg Neutrophils # Man Lymphocytes # (Manual) Monocytes # (Manual) Eosinophils # (Manual) Basophils # (Manual) PT INR D-Dimer ABG pH POC ABG pCO2 POC ABG pO2 ABG pO2 ABG HCO3 ABG O2 Saturation ABG Base Excess ABG Hemoglobin ABG Oxyhemoglobin ABG Potassium ABG Glucose Oxyhemoglobin Carboxyhemoglobin Sodium Potassium Chloride Carbon Dioxide BUN Creatinine Glucose POC Glucose 124 H 109 H 131 H Calcium Ferritin Total Bilirubin Alkaline Phosphatase Lactate Dehydrogenase Total Creatine Kinase CK-MB (CK-2) Rel Index Troponin T C-Reactive Protein Total Protein Albumin Prealbumin LDL Cholesterol Direct Arterial Blood Glucose Arterial Blood Ionized Calcium Urine WBC (Auto) 03/26/20 03/26/20 03/26/20 05:21 08:49 08:49 WBC 19.7 H RBC Hgb 10.7 L Hct 33.5 L MCV MCH 27 L RDW 17.1 H Plt Count 480 H Lymph % (Auto) 5.7 L Lymph # (Auto) 1.1 L [place] # (Auto) 1.2 H Seg Neutrophils % 87.7 H Seg Neuts % (Manual) Lymphocytes % (Manual) Monocytes % (Manual) Basophils % (Manual) Seg Neutrophils # 17.2 H Seg Neutrophils # Man Lymphocytes # (Manual) Monocytes # (Manual) Eosinophils # (Manual) Basophils # (Manual) PT INR D-Dimer ABG pH POC ABG pCO2 POC ABG pO2 ABG pO2 ABG HCO3 ABG O2 Saturation ABG Base Excess ABG Hemoglobin ABG Oxyhemoglobin ABG Potassium ABG Glucose Oxyhemoglobin Carboxyhemoglobin Sodium Potassium Chloride 97.2 L Carbon Dioxide 36 H BUN Creatinine < 0.2 L Glucose 127 H POC Glucose 116 H Calcium Ferritin Total Bilirubin Alkaline Phosphatase Lactate Dehydrogenase Total Creatine Kinase CK-MB (CK-2) Rel Index Troponin T C-Reactive Protein Total Protein Albumin Prealbumin LDL Cholesterol Direct Arterial Blood Glucose Arterial Blood Ionized Calcium Urine WBC (Auto) 03/26/20 03/26/20 03/26/20 11:38 18:44 23:06 WBC RBC Hgb Hct MCV MCH RDW Plt Count Lymph % (Auto) Lymph # (Auto) [place] # (Auto) Seg Neutrophils % Seg Neuts % (Manual) Lymphocytes % (Manual) Monocytes % (Manual) Basophils % (Manual) Seg Neutrophils # Seg Neutrophils # Man Lymphocytes # (Manual) Monocytes # (Manual) Eosinophils # (Manual) Basophils # (Manual) PT INR D-Dimer ABG pH POC ABG pCO2 POC ABG pO2 ABG pO2 ABG HCO3 ABG O2 Saturation ABG Base Excess ABG Hemoglobin ABG Oxyhemoglobin ABG Potassium ABG Glucose Oxyhemoglobin Carboxyhemoglobin Sodium Potassium Chloride Carbon Dioxide BUN Creatinine Glucose POC Glucose 120 H 111 H 134 H Calcium Ferritin Total Bilirubin Alkaline Phosphatase Lactate Dehydrogenase Total Creatine Kinase CK-MB (CK-2) Rel Index Troponin T C-Reactive Protein Total Protein Albumin Prealbumin LDL Cholesterol Direct Arterial Blood Glucose Arterial Blood Ionized Calcium Urine WBC (Auto) 03/27/20 03/27/20 03/27/20 05:41 05:59 05:59 WBC 18.6 H RBC Hgb 10.1 L Hct 31.4 L MCV MCH RDW 17.2 H Plt Count Lymph % (Auto) 8.0 L Lymph # (Auto) [place] # (Auto) 1.2 H Seg Neutrophils % 84.7 H Seg Neuts % (Manual) Lymphocytes % (Manual) Monocytes % (Manual) Basophils % (Manual) Seg Neutrophils # 15.8 H Seg Neutrophils # Man Lymphocytes # (Manual) Monocytes # (Manual) Eosinophils # (Manual) Basophils # (Manual) PT INR D-Dimer ABG pH POC ABG pCO2 POC ABG pO2 ABG pO2 ABG HCO3 ABG O2 Saturation ABG Base Excess ABG Hemoglobin ABG Oxyhemoglobin ABG Potassium ABG Glucose Oxyhemoglobin Carboxyhemoglobin Sodium Potassium Chloride Carbon Dioxide 34 H BUN Creatinine < 0.2 L Glucose 127 H POC Glucose 129 H Calcium Ferritin Total Bilirubin Alkaline Phosphatase Lactate Dehydrogenase Total Creatine Kinase CK-MB (CK-2) Rel Index Troponin T C-Reactive Protein Total Protein Albumin Prealbumin LDL Cholesterol Direct Arterial Blood Glucose Arterial Blood Ionized Calcium Urine WBC (Auto) 03/27/20 03/27/20 03/28/20 17:28 23:22 05:23 WBC RBC Hgb Hct MCV MCH RDW Plt Count Lymph % (Auto) Lymph # (Auto) [place] # (Auto) Seg Neutrophils % Seg Neuts % (Manual) Lymphocytes % (Manual) Monocytes % (Manual) Basophils % (Manual) Seg Neutrophils # Seg Neutrophils # Man Lymphocytes # (Manual) Monocytes # (Manual) Eosinophils # (Manual) Basophils # (Manual) PT INR D-Dimer ABG pH POC ABG pCO2 POC ABG pO2 ABG pO2 ABG HCO3 ABG O2 Saturation ABG Base Excess ABG Hemoglobin ABG Oxyhemoglobin ABG Potassium ABG Glucose Oxyhemoglobin Carboxyhemoglobin Sodium Potassium Chloride Carbon Dioxide BUN Creatinine Glucose POC Glucose 108 H 119 H 129 H Calcium Ferritin Total Bilirubin Alkaline Phosphatase Lactate Dehydrogenase Total Creatine Kinase CK-MB (CK-2) Rel Index Troponin T C-Reactive Protein Total Protein Albumin Prealbumin LDL Cholesterol Direct Arterial Blood Glucose Arterial Blood Ionized Calcium Urine WBC (Auto) 03/28/20 03/28/20 03/28/20 10:28 10:28 11:36 WBC 23.6 H RBC 3.62 L Hgb 10.0 L Hct 30.8 L MCV MCH RDW 16.4 H Plt Count Lymph % (Auto) Lymph # (Auto) [place] # (Auto) Seg Neutrophils % Seg Neuts % (Manual) 89.0 H Lymphocytes % (Manual) 5.0 L Monocytes % (Manual) Basophils % (Manual) Seg Neutrophils # Seg Neutrophils # Man 21.0 H Lymphocytes # (Manual) Monocytes # (Manual) 1.2 H Eosinophils # (Manual) Basophils # (Manual) 0.2 H PT INR D-Dimer ABG pH POC ABG pCO2 POC ABG pO2 ABG pO2 ABG HCO3 ABG O2 Saturation ABG Base Excess ABG Hemoglobin ABG Oxyhemoglobin ABG Potassium ABG Glucose Oxyhemoglobin Carboxyhemoglobin Sodium 134 L Potassium Chloride 94.2 L Carbon Dioxide 35 H BUN Creatinine < 0.2 L Glucose 134 H POC Glucose Calcium Ferritin Total Bilirubin Alkaline Phosphatase Lactate Dehydrogenase Total Creatine Kinase CK-MB (CK-2) Rel Index Troponin T C-Reactive Protein Total Protein Albumin Prealbumin LDL Cholesterol Direct Arterial Blood Glucose Arterial Blood Ionized Calcium Urine WBC (Auto) 39.0 H 03/28/20 03/28/20 03/28/20 11:51 17:08 17:17 WBC RBC Hgb Hct MCV MCH RDW Plt Count Lymph % (Auto) Lymph # (Auto) [place] # (Auto) Seg Neutrophils % Seg Neuts % (Manual) Lymphocytes % (Manual) Monocytes % (Manual) Basophils % (Manual) Seg Neutrophils # Seg Neutrophils # Man Lymphocytes # (Manual) Monocytes # (Manual) Eosinophils # (Manual) Basophils # (Manual) PT INR D-Dimer ABG pH POC ABG pCO2 POC ABG pO2 ABG pO2 ABG HCO3 ABG O2 Saturation ABG Base Excess ABG Hemoglobin ABG Oxyhemoglobin ABG Potassium ABG Glucose Oxyhemoglobin Carboxyhemoglobin Sodium Potassium Chloride Carbon Dioxide BUN Creatinine Glucose POC Glucose 123 H 112 H Calcium Ferritin Total Bilirubin Alkaline Phosphatase Lactate Dehydrogenase Total Creatine Kinase 47 L CK-MB (CK-2) Rel Index 4.6 H Troponin T 0.090 H C-Reactive Protein Total Protein Albumin Prealbumin LDL Cholesterol Direct Arterial Blood Glucose Arterial Blood Ionized Calcium Urine WBC (Auto) 03/28/20 03/29/20 03/29/20 23:22 05:22 10:58 WBC RBC Hgb Hct MCV MCH RDW Plt Count Lymph % (Auto) Lymph # (Auto) [place] # (Auto) Seg Neutrophils % Seg Neuts % (Manual) Lymphocytes % (Manual) Monocytes % (Manual) Basophils % (Manual) Seg Neutrophils # Seg Neutrophils # Man Lymphocytes # (Manual) Monocytes # (Manual) Eosinophils # (Manual) Basophils # (Manual) PT INR D-Dimer ABG pH POC ABG pCO2 POC ABG pO2 ABG pO2 ABG HCO3 ABG O2 Saturation ABG Base Excess ABG Hemoglobin ABG Oxyhemoglobin ABG Potassium ABG Glucose Oxyhemoglobin Carboxyhemoglobin Sodium Potassium Chloride Carbon Dioxide BUN Creatinine Glucose POC Glucose 122 H 116 H 133 H Calcium Ferritin Total Bilirubin Alkaline Phosphatase Lactate Dehydrogenase Total Creatine Kinase CK-MB (CK-2) Rel Index Troponin T C-Reactive Protein Total Protein Albumin Prealbumin LDL Cholesterol Direct Arterial Blood Glucose Arterial Blood Ionized Calcium Urine WBC (Auto) 03/29/20 03/29/20 03/30/20 17:18 23:14 04:57 WBC RBC Hgb Hct MCV MCH RDW Plt Count Lymph % (Auto) Lymph # (Auto) [place] # (Auto) Seg Neutrophils % Seg Neuts % (Manual) Lymphocytes % (Manual) Monocytes % (Manual) Basophils % (Manual) Seg Neutrophils # Seg Neutrophils # Man Lymphocytes # (Manual) Monocytes # (Manual) Eosinophils # (Manual) Basophils # (Manual) PT INR D-Dimer ABG pH POC ABG pCO2 POC ABG pO2 ABG pO2 ABG HCO3 ABG O2 Saturation ABG Base Excess ABG Hemoglobin ABG Oxyhemoglobin ABG Potassium ABG Glucose Oxyhemoglobin Carboxyhemoglobin Sodium Potassium Chloride Carbon Dioxide BUN Creatinine Glucose POC Glucose 111 H 114 H 130 H Calcium Ferritin Total Bilirubin Alkaline Phosphatase Lactate Dehydrogenase Total Creatine Kinase CK-MB (CK-2) Rel Index Troponin T C-Reactive Protein Total Protein Albumin Prealbumin LDL Cholesterol Direct Arterial Blood Glucose Arterial Blood Ionized Calcium Urine WBC (Auto) 03/30/20 03/30/20 03/30/20 11:38 14:47 14:47 WBC 19.9 H RBC Hgb 10.9 L Hct 34.4 L MCV MCH 27 L RDW 16.5 H Plt Count 441 H Lymph % (Auto) 6.4 L Lymph # (Auto) [place] # (Auto) 1.4 H Seg Neutrophils % 86.1 H Seg Neuts % (Manual) Lymphocytes % (Manual) Monocytes % (Manual) Basophils % (Manual) Seg Neutrophils # 17.1 H Seg Neutrophils # Man Lymphocytes # (Manual) Monocytes # (Manual) Eosinophils # (Manual) Basophils # (Manual) PT INR D-Dimer ABG pH POC ABG pCO2 POC ABG pO2 ABG pO2 ABG HCO3 ABG O2 Saturation ABG Base Excess ABG Hemoglobin ABG Oxyhemoglobin ABG Potassium ABG Glucose Oxyhemoglobin Carboxyhemoglobin Sodium 133 L Potassium Chloride 94.6 L Carbon Dioxide 33 H BUN Creatinine < 0.2 L Glucose 194 H POC Glucose 139 H Calcium Ferritin Total Bilirubin Alkaline Phosphatase Lactate Dehydrogenase Total Creatine Kinase CK-MB (CK-2) Rel Index Troponin T C-Reactive Protein Total Protein Albumin 2.8 L Prealbumin LDL Cholesterol Direct Arterial Blood Glucose Arterial Blood Ionized Calcium Urine WBC (Auto) 03/30/20 03/31/20 03/31/20 17:07 05:02 15:21 WBC RBC Hgb Hct MCV MCH RDW Plt Count Lymph % (Auto) Lymph # (Auto) [place] # (Auto) Seg Neutrophils % Seg Neuts % (Manual) Lymphocytes % (Manual) Monocytes % (Manual) Basophils % (Manual) Seg Neutrophils # Seg Neutrophils # Man Lymphocytes # (Manual) Monocytes # (Manual) Eosinophils # (Manual) Basophils # (Manual) PT INR D-Dimer ABG pH POC ABG pCO2 POC ABG pO2 ABG pO2 ABG HCO3 ABG O2 Saturation ABG Base Excess ABG Hemoglobin ABG Oxyhemoglobin ABG Potassium ABG Glucose Oxyhemoglobin Carboxyhemoglobin Sodium Potassium Chloride Carbon Dioxide BUN Creatinine Glucose POC Glucose 163 H 108 H 110 H Calcium Ferritin Total Bilirubin Alkaline Phosphatase Lactate Dehydrogenase Total Creatine Kinase CK-MB (CK-2) Rel Index Troponin T C-Reactive Protein Total Protein Albumin Prealbumin LDL Cholesterol Direct Arterial Blood Glucose Arterial Blood Ionized Calcium Urine WBC (Auto) 03/31/20 03/31/20 04/01/20 17:58 23:19 05:09 WBC RBC Hgb Hct MCV MCH RDW Plt Count Lymph % (Auto) Lymph # (Auto) [place] # (Auto) Seg Neutrophils % Seg Neuts % (Manual) Lymphocytes % (Manual) Monocytes % (Manual) Basophils % (Manual) Seg Neutrophils # Seg Neutrophils # Man Lymphocytes # (Manual) Monocytes # (Manual) Eosinophils # (Manual) Basophils # (Manual) PT INR D-Dimer ABG pH POC ABG pCO2 POC ABG pO2 ABG pO2 ABG HCO3 ABG O2 Saturation ABG Base Excess ABG Hemoglobin ABG Oxyhemoglobin ABG Potassium ABG Glucose Oxyhemoglobin Carboxyhemoglobin Sodium Potassium Chloride Carbon Dioxide BUN Creatinine Glucose POC Glucose 110 H 131 H 124 H Calcium Ferritin Total Bilirubin Alkaline Phosphatase Lactate Dehydrogenase Total Creatine Kinase CK-MB (CK-2) Rel Index Troponin T C-Reactive Protein Total Protein Albumin Prealbumin LDL Cholesterol Direct Arterial Blood Glucose Arterial Blood Ionized Calcium Urine WBC (Auto) 04/01/20 04/01/20 04/01/20 11:50 17:01 23:21 WBC RBC Hgb Hct MCV MCH RDW Plt Count Lymph % (Auto) Lymph # (Auto) [place] # (Auto) Seg Neutrophils % Seg Neuts % (Manual) Lymphocytes % (Manual) Monocytes % (Manual) Basophils % (Manual) Seg Neutrophils # Seg Neutrophils # Man Lymphocytes # (Manual) Monocytes # (Manual) Eosinophils # (Manual) Basophils # (Manual) PT INR D-Dimer ABG pH POC ABG pCO2 POC ABG pO2 ABG pO2 ABG HCO3 ABG O2 Saturation ABG Base Excess ABG Hemoglobin ABG Oxyhemoglobin ABG Potassium ABG Glucose Oxyhemoglobin Carboxyhemoglobin Sodium Potassium Chloride Carbon Dioxide BUN Creatinine Glucose POC Glucose 136 H 115 H 124 H Calcium Ferritin Total Bilirubin Alkaline Phosphatase Lactate Dehydrogenase Total Creatine Kinase CK-MB (CK-2) Rel Index Troponin T C-Reactive Protein Total Protein Albumin Prealbumin LDL Cholesterol Direct Arterial Blood Glucose Arterial Blood Ionized Calcium Urine WBC (Auto) 04/02/20 04/02/20 04/02/20 05:27 11:58 17:58 WBC RBC Hgb Hct MCV MCH RDW Plt Count Lymph % (Auto) Lymph # (Auto) [place] # (Auto) Seg Neutrophils % Seg Neuts % (Manual) Lymphocytes % (Manual) Monocytes % (Manual) Basophils % (Manual) Seg Neutrophils # Seg Neutrophils # Man Lymphocytes # (Manual) Monocytes # (Manual) Eosinophils # (Manual) Basophils # (Manual) PT INR D-Dimer ABG pH POC ABG pCO2 POC ABG pO2 ABG pO2 ABG HCO3 ABG O2 Saturation ABG Base Excess ABG Hemoglobin ABG Oxyhemoglobin ABG Potassium ABG Glucose Oxyhemoglobin Carboxyhemoglobin Sodium Potassium Chloride Carbon Dioxide BUN Creatinine Glucose POC Glucose 117 H 133 H 122 H Calcium Ferritin Total Bilirubin Alkaline Phosphatase Lactate Dehydrogenase Total Creatine Kinase CK-MB (CK-2) Rel Index Troponin T C-Reactive Protein Total Protein Albumin Prealbumin LDL Cholesterol Direct Arterial Blood Glucose Arterial Blood Ionized Calcium Urine WBC (Auto) 04/02/20 04/03/20 04/03/20 23:12 05:11 11:11 WBC RBC Hgb Hct MCV MCH RDW Plt Count Lymph % (Auto) Lymph # (Auto) [place] # (Auto) Seg Neutrophils % Seg Neuts % (Manual) Lymphocytes % (Manual) Monocytes % (Manual) Basophils % (Manual) Seg Neutrophils # Seg Neutrophils # Man Lymphocytes # (Manual) Monocytes # (Manual) Eosinophils # (Manual) Basophils # (Manual) PT INR D-Dimer ABG pH POC ABG pCO2 POC ABG pO2 ABG pO2 ABG HCO3 ABG O2 Saturation ABG Base Excess ABG Hemoglobin ABG Oxyhemoglobin ABG Potassium ABG Glucose Oxyhemoglobin Carboxyhemoglobin Sodium Potassium Chloride Carbon Dioxide BUN Creatinine Glucose POC Glucose 130 H 139 H 136 H Calcium Ferritin Total Bilirubin Alkaline Phosphatase Lactate Dehydrogenase Total Creatine Kinase CK-MB (CK-2) Rel Index Troponin T C-Reactive Protein Total Protein Albumin Prealbumin LDL Cholesterol Direct Arterial Blood Glucose Arterial Blood Ionized Calcium Urine WBC (Auto) 04/03/20 04/03/20 04/04/20 16:51 23:25 05:29 WBC RBC Hgb Hct MCV MCH RDW Plt Count Lymph % (Auto) Lymph # (Auto) [place] # (Auto) Seg Neutrophils % Seg Neuts % (Manual) Lymphocytes % (Manual) Monocytes % (Manual) Basophils % (Manual) Seg Neutrophils # Seg Neutrophils # Man Lymphocytes # (Manual) Monocytes # (Manual) Eosinophils # (Manual) Basophils # (Manual) PT INR D-Dimer ABG pH POC ABG pCO2 POC ABG pO2 ABG pO2 ABG HCO3 ABG O2 Saturation ABG Base Excess ABG Hemoglobin ABG Oxyhemoglobin ABG Potassium ABG Glucose Oxyhemoglobin Carboxyhemoglobin Sodium Potassium Chloride Carbon Dioxide BUN Creatinine Glucose POC Glucose 118 H 111 H 126 H Calcium Ferritin Total Bilirubin Alkaline Phosphatase Lactate Dehydrogenase Total Creatine Kinase CK-MB (CK-2) Rel Index Troponin T C-Reactive Protein Total Protein Albumin Prealbumin LDL Cholesterol Direct Arterial Blood Glucose Arterial Blood Ionized Calcium Urine WBC (Auto) 04/04/20 11:47 WBC RBC Hgb Hct MCV MCH RDW Plt Count Lymph % (Auto) Lymph # (Auto) [place] # (Auto) Seg Neutrophils % Seg Neuts % (Manual) Lymphocytes % (Manual) Monocytes % (Manual) Basophils % (Manual) Seg Neutrophils # Seg Neutrophils # Man Lymphocytes # (Manual) Monocytes # (Manual) Eosinophils # (Manual) Basophils # (Manual) PT INR D-Dimer ABG pH POC ABG pCO2 POC ABG pO2 ABG pO2 ABG HCO3 ABG O2 Saturation ABG Base Excess ABG Hemoglobin ABG Oxyhemoglobin ABG Potassium ABG Glucose Oxyhemoglobin Carboxyhemoglobin Sodium Potassium Chloride Carbon Dioxide BUN Creatinine Glucose POC Glucose 123 H Calcium Ferritin Total Bilirubin Alkaline Phosphatase Lactate Dehydrogenase Total Creatine Kinase CK-MB (CK-2) Rel Index Troponin T C-Reactive Protein Total Protein Albumin Prealbumin LDL Cholesterol Direct Arterial Blood Glucose Arterial Blood Ionized Calcium Urine WBC (Auto) Chest x-ray: pending Allied health notes reviewed: nursing
--- NOTE | 2020-04-04 13:36 | Progress Note ---
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 Patient was on a trilogy machine for breathing 18/11. EMS arrived, patient had O2 sats in the 80s. EMS attempted to place patient on their CPAP machine, hill john patient did not tolerate. Patient was admitted to the ICU with diagnosis of acute hypoxic respiratory failure and placed on BiPAP. Patient initially tolerated but later deteriorated with respiratory status. CTA chest showed no PE but significant for bilateral pneumonia. Doppler ultrasound also negative for DVT. COVID-19 test ordered. Due to persistent hypoxia, patient was intubated on 02/26/2020 at 1500. Patient now on mechanical ventilation in the ICU. 02/26/2020. Blood cultures are negative x48 hours and Covid testing negative as well. Continue antibiotics per ID recommendations for community-acquired bilateral pneumonia. Cardiology consultation for elevated troponin. Check echocardiogram. 02/27/2020. Events of yesterday noted with asystole following V. fib arrest. Patient currently on AC mode rate 20, tidal volume 400, FiO2 50% and a PEEP of 6. Follow-up echocardiogram for elevated troponin. Cardiology suspects NSTEMI Type 2 in the setting of acute resp failure. Chest CTA and BLE Dopplers neg. we will discontinue Decadron given the Covid PCR is negative. 02/25/2020. CTA of the chest reveals no PE but does illustrate the bilateral pneumonia. Doppler ultrasound also negative for DVT. Blood cultures are pending. Await COVID-19 testing. Patient currently requiring BiPAP IPAP 24/EPAP 6 with FiO2 of 25%. Continue O2 and BiPAP as clinically indicated. ID and pulmonary consulted. 02/26/2020. Blood cultures are negative x48 hours and Covid testing negative as well. Continue antibiotics per ID recommendations for community-acquired bilateral pneumonia. Cardiology consultation for elevated troponin. Check echocardiogram. 02/27/2020. Events of yesterday noted with asystole following V. fib arrest. Patient currently on AC mode rate 20, tidal volume 400, FiO2 50% and a PEEP of 6. Follow-up echocardiogram for elevated troponin. Cardiology suspects NSTEMI Type 2 in the setting of acute resp failure. Chest CTA and BLE Dopplers neg. we will discontinue Decadron given the Covid PCR is negative. 02/28/2020. I spoke with the sister Felisa Eli who is the power of litigation attorney regarding advanced directives and she instructed me that she would like to continue with aggressive care at this time. I informed her of the guarded prognosis and high mortality/morbidity and she voiced understanding. Patient currently with AC mode ventilation rate 18, tidal volume 400, FiO2 40% and a PEEP of 6. Continue antibiotics for pneumonia. ID previously consulted. Also consult neurology with regards to ALS. 02/29/2020; patient is intubated and on CPAP patient is alert and oriented. Patient has ALS. Dr. Álvarez spoke with his sister and she wants aggressive care. Continue antibiotics for pneumonia. Neurology consulted for ALS. Prognosis poor 03/01/2020; patient is intubated and on CPAP, patient is alert and oriented. I spoke with his 2 sisters about the management plan. 03/02/2020; patient is intubated and on CPAP. Patient was alert and oriented. I spoke with Dr. mohr and he thinks patient may need mechanical ventilation, likely his disease progressed. Dr. Flowers did debridement this morning. 03/03/2020; patient is intubated and on CPAP, patient was on trilogy and BiPAP at home. Patient has ALS. on spontaneous breathing trial. Patient is alert and oriented but quadriplegic. Patient has severe bilateral pneumonia and is on cefepime and Vanco, ID is following. Patient has sacral decubitus ulcer and debridement was done by Dr. Flowers and there is no osteomyelitis. 03/05. Patient still on broad-spectrum antibiotics. Status post sacral decubitus ulcer debridements-no osteomyelitis. Patient is on AC 25/400/30% PEEP 5. No blood gas results today. 03/06. Plan for tracheostomy by surgery. Still remains intubated. Labs reviewed-sodium 150. Started on free water 200 every 8hr. trend sodium. 03/07: s/p trach placement today, patient placed back on mechanical ventilation with trach. Plan to resume tube feeding with NG tube. Continue to monitor vitals, monitor BMP. 03/08: Patient noted to have distended abdomen with low urinary output. Obtain bladder scan rule out urine retention, UA and urine culture, continue to follow clinically. 03/09: Patient noted to have low blood pressure with SBP as low as 70s. Ordered for 500 mils normal saline bolus. CT abdomen showed bladder outlet obstruction, urology consulted. 03/10: placed on drake by urology o/n, improved urine outpt. cont to monitor BMP. resuded TF - cont free water with TF. wean off from vent as tolerated. 03/11: Vitals stable. cont TF, wean off from vent as tolerated. start on 1/2 NS for hypernatremia - follow BMP 03/12: wean off vent as tolerated, plan for speech eval, cont Tf for now, cont iv fluid 03/13: unable to wean off from vent, unable to do speech therapy eval. will need PEG tube, cont supportive care for now, cont NG tube feeding 03/14: consulted GI for PEg placemnet, cont supportive care. remains on vent at night 03/15: Discussed with GI, plan for PEG tube placement possibly tomorrow. Continue supportive care and wean off from vent as tolerated. Hold Lovenox dose tonight. 03/16: family didnot consent for PEG placement yesterday. I spoke with the daughter today and she is now agreeable for PEG tube. I explained the necessity of the procedure with RN to the patient also and he nodded started on tube feeding, for the procedure. will cont supportive care. planned for PEG tube placement tomorrow. 03/17: s/p PEG placement today, patient tolerated well, cont supportive care 03/18: Started on tube feeding with new PEG tube, continue to wean off vent as tolerated 03/19: cont to monitor with supportive care, wean off vent as tolerated 03/20: Continue to wean off vent as tolerated -but failing weaning trial. Still requiring vent support at night. Currently on PEG tube for tube feed. 03/21. Pt with PSV trials with FiO@ 30%, PEEP 6, PS 10. Currently on PEG tube for tube feed. 03/22/2020. Continue PSV trials per pulmonary. Continue bronchodilators. Patient tolerating tube feedings. Continue Robinul for secretion control. 03/23/2020. Continue PSV trials per pulmonary. Continue bronchodilators. Continue Scopolamine and Robinul for secretion control. Trach care/airway management. Mobility protocols for pressure ulcer prophylaxis. LTAC evaluation per case management 03/24/2020. Continue PSV trials with current settings pressure support 10, PEEP 6 and FiO2 30%. Continue bronchodilators/nebulizer. Continue Scopolamine and Robinul for secretion control. Trach care/airway management. Mobility protocols for pressure ulcer prophylaxis. LTAC evaluation per case management 03/25/2020. Pulmonary to proceed with T-piece trials today. Continue bronchodilators/nebulizer. Continue Scopolamine and Robinul for secretion control. Trach care/airway management. Mobility protocols for pressure ulcer prophylaxis. 03/26/2020. Patient currently with PSV 10/6 at FiO2 of 30%. Continue weaning and T-piece trials per protocol. Continue bronchodilators/nebulizer. Continue Scopolamine and Robinul for secretion control. Trach care/airway management. Mobility protocols for pressure ulcer prophylaxis. Continue tube feeding with aspiration precautions. 03/27/2020. Patient currently with PSV 10/6 at FiO2 of 30%. Continue weaning and T-piece trials per protocol. Continue bronchodilators/nebulizer. Continue Scopolamine and Robinul for secretion control. Trach care/airway management. Mobility protocols for pressure ulcer prophylaxis. Continue tube feeding with aspiration precautions. 03/28. Had temp 100.7F. He has been off antibiotics. Will send blood culture, ua, urine culture and chest xray. Had chest pain overnight and trop was elevated as well. Cardiology to evaluate 03/29. Has back pain due to position. He mentions his chest pain is positional. Has no other complaints. Still on mechanical ventilation 03/30. No chest pain today. Labs reviewed. Discussed chest pain with cardiology and team advised no further work up at this time. Can follow up with cardiology in the office after hospitalization 03/31. Lidocaine patch for lower back pain. 04/01. Discharge planning underway. CM notes reviewed. Discussed with daughter 04/02 - . CM trying to arrange discharge. Continue PSV trials. Discussed with patients significant other 04/04/2020; CM is working for discharge arrangement. Continue PSV trials. The high probability of a clinically significant, sudden or life threatening deterioration of the [cardiac and respiratory] system(s) required my full and direct attention, intervention and personal management. The aggregate critical care time was [32] minutes. This time is in addition to time spent performing reported procedures but includes the following: [x] Data Review and interpretation [x] Patient assessment and monitoring of vital signs [x] Documentation [x] Medication orders and management History Interval history: Patient was seen and evaluated this morning Patient is intubated, on trach Patient is awake Hospitalist Physical - Physical exam Narrative exam: Intubated, on a trach The patient appeared well nourished and normally developed. Vital signs as documented. Head exam is unremarkable. No scleral icterus . Neck is without jugular venous distension, thyromegaly, or carotid bruits. Lungs are clear to auscultation. Cardiac exam reveals regular rate and Rhythm. Abdominal exam reveals normal bowel sounds, nontender, no organomegaly. Extremities are nonedematous and both femoral and pedal pulses are normal. LPC:awake. 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 - Constitutional Vitals: Temp Pulse Resp BP Pulse Ox 98.9 F 100 H 24 108/68 90 04/04/20 12:00 04/04/20 12:46 04/04/20 12:46 04/04/20 12:46 04/04/20 12:46 General appearance: Present: mild distress, other (Intubated on mechanical ventilation) HEART Score - HEART Score Troponin: Troponin T 0.090 ng/mL (0.00-0.029) H 03/28/20 17:17 Results - Labs CBC & Chem 7: 03/30/20 14:47 03/30/20 14:47 Labs: Laboratory Last Values WBC 19.9 K/mm3 (4.5-11.0) H 03/30/20 14:47 RBC 4.01 M/mm3 (3.65-5.03) 03/30/20 14:47 Hgb 10.9 gm/dl (11.8-15.2) L 03/30/20 14:47 Hct 34.4 % (35.5-45.6) L 03/30/20 14:47 MCV 86 fl (84-94) 03/30/20 14:47 MCH 27 pg (28-32) L 03/30/20 14:47 MCHC 32 % (32-34) 03/30/20 14:47 RDW 16.5 % (13.2-15.2) H 03/30/20 14:47 Plt Count 441 K/mm3 (140-440) H 03/30/20 14:47 Lymph % (Auto) 6.4 % (13.4-35.0) L 03/30/20 14:47 [place] % (Auto) 7.2 % (0.0-7.3) 03/30/20 14:47 Eos % (Auto) 0.1 % (0.0-4.3) 03/30/20 14:47 Baso % (Auto) 0.2 % (0.0-1.8) 03/30/20 14:47 Lymph # (Auto) 1.3 K/mm3 (1.2-5.4) 03/30/20 14:47 [place] # (Auto) 1.4 K/mm3 (0.0-0.8) H 03/30/20 14:47 Eos # (Auto) 0.0 K/mm3 (0.0-0.4) 03/30/20 14:47 Baso # (Auto) 0.0 K/mm3 (0.0-0.1) 03/30/20 14:47 Add Manual Diff Complete 03/28/20 10:28 Total Counted 100 03/28/20 10:28 Seg Neutrophils % 86.1 % (40.0-70.0) H 03/30/20 14:47 Seg Neuts % (Manual) 89.0 % (40.0-70.0) H 03/28/20 10:28 Band Neutrophils % 0 % 03/28/20 10:28 Lymphocytes % (Manual) 5.0 % (13.4-35.0) L 03/28/20 10:28 Reactive Lymphs % (Man) 0 % 03/28/20 10:28 Monocytes % (Manual) 5.0 % (0.0-7.3) 03/28/20 10:28 Eosinophils % (Manual) 0 % (0.0-4.3) 03/28/20 10:28 Basophils % (Manual) 1.0 % (0.0-1.8) 03/28/20 10:28 Metamyelocytes % 0 % 03/28/20 10:28 Myelocytes % 0 % 03/28/20 10:28 Promyelocytes % 0 % 03/28/20 10:28 Blast Cells % 0 % 03/28/20 10:28 Nucleated RBC % Not Reportable 03/28/20 10:28 Seg Neutrophils # 17.1 K/mm3 (1.8-7.7) H 03/30/20 14:47 Seg Neutrophils # Man 21.0 K/mm3 (1.8-7.7) H 03/28/20 10:28 Band Neutrophils # 0.0 K/mm3 03/28/20 10:28 Lymphocytes # (Manual) 1.2 K/mm3 (1.2-5.4) 03/28/20 10:28 Abs React Lymphs (Man) 0.0 K/mm3 03/28/20 10:28 Monocytes # (Manual) 1.2 K/mm3 (0.0-0.8) H 03/28/20 10:28 Eosinophils # (Manual) 0.0 K/mm3 (0.0-0.4) 03/28/20 10:28 Basophils # (Manual) 0.2 K/mm3 (0.0-0.1) H 03/28/20 10:28 Metamyelocytes # 0.0 K/mm3 03/28/20 10:28 Myelocytes # 0.0 K/mm3 03/28/20 10:28 Promyelocytes # 0.0 K/mm3 03/28/20 10:28 Blast Cells # 0.0 K/mm3 03/28/20 10:28 WBC Morphology Not Reportable 03/28/20 10:28 Hypersegmented Neuts Not Reportable 03/28/20 10:28 Hyposegmented Neuts Not Reportable 03/28/20 10:28 Hypogranular Neuts Not Reportable 03/28/20 10:28 Smudge Cells Not Reportable 03/28/20 10:28 Toxic Granulation 1+ 03/28/20 10:28 Toxic Vacuolation Not Reportable 03/28/20 10:28 Dohle Bodies Not Reportable 03/28/20 10:28 Pelger-Huet Anomaly Not Reportable 03/28/20 10:28 Robert Rods Not Reportable 03/28/20 10:28 Platelet Estimate Consistent w auto 03/28/20 10:28 Clumped Platelets Not Reportable 03/28/20 10:28 Plt Clumps, EDTA Not Reportable 03/28/20 10:28 Large Platelets Not Reportable 03/28/20 10:28 Giant Platelets Not Reportable 03/28/20 10:28 Platelet Satelliting Not Reportable 03/28/20 10:28 Plt Morphology Comment Not Reportable 03/28/20 10:28 RBC Morphology Not Reportable 03/28/20 10:28 Dimorphic RBCs Not Reportable 03/28/20 10:28 Polychromasia Not Reportable 03/28/20 10:28 Hypochromasia Not Reportable 03/28/20 10:28 Poikilocytosis Not Reportable 03/28/20 10:28 Anisocytosis 1+ 03/28/20 10:28 Microcytosis Not Reportable 03/28/20 10:28 Macrocytosis Not Reportable 03/28/20 10:28 Spherocytes Not Reportable 03/28/20 10:28 Pappenheimer Bodies Not Reportable 03/28/20 10:28 Sickle Cells Not Reportable 03/28/20 10:28 Target Cells Not Reportable 03/28/20 10:28 Tear Drop Cells Not Reportable 03/28/20 10:28 Ovalocytes Not Reportable 03/28/20 10:28 Stomatocytes Few 03/17/20 04:40 Helmet Cells Not Reportable 03/28/20 10:28 Gregory-Epps Bodies Not Reportable 03/28/20 10:28 [place] Rings Not Reportable 03/28/20 10:28 [place] Cells Not Reportable 03/28/20 10:28 Bite Cells Not Reportable 03/28/20 10:28 Crenated Cell Not Reportable 03/28/20 10:28 Elliptocytes Not Reportable 03/28/20 10:28 Acanthocytes (Spur) Not Reportable 03/28/20 10:28 Rouleaux Not Reportable 03/28/20 10:28 Hemoglobin C Crystals Not Reportable 03/28/20 10:28 Schistocytes Not Reportable 03/28/20 10:28 Malaria parasites Not Reportable 03/28/20 10:28 Colton Bodies Not Reportable 03/28/20 10:28 Hem Pathologist Commnt No 03/28/20 10:28 PT 15.6 Sec. (12.2-14.9) H 02/24/20 09:19 INR 1.21 (0.87-1.13) H 02/24/20 09:19 APTT 25.4 Sec. (24.2-36.6) 02/24/20 09:19 D-Dimer 1311.96 ng/mlDDU (0-234) H 02/24/20 09:19 ABG pH 7.371 (7.320-7.450) 03/08/20 12:34 POC ABG pCO2 63.1 mmHg (32.0-48.0) H 03/08/20 12:34 ABG pCO2 60.1 mm Hg 03/06/20 04:34 POC ABG pO2 90.5 mmHg (83-108) 03/08/20 12:34 ABG pO2 88.6 mm Hg (80.0-90.0) 03/06/20 04:34 POC ABG HCO3 35.7 03/08/20 12:34 ABG HCO3 37.9 mmol/L (20.0-26.0) H 03/06/20 04:34 ABG O2 Saturation 97.0 % (95.0-99.0) 03/06/20 04:34 ABG O2 Content 14.3 (0.0-44) 03/06/20 04:34 POC ABG Base Excess 8.7 03/08/20 12:34 ABG Base Excess 11.4 mmol/L (-2.0-3.0) H 03/06/20 04:34 ABG Hemoglobin 10.9 (12.0-17.5) L 03/08/20 12:34 ABG Oxyhemoglobin 95.9 (94-98) 03/08/20 12:34 ABG Carboxyhemoglobin 1.7 % (0.0-5.0) 03/06/20 04:34 ABG Methemoglobin 0.3 (0.0-1.5) 03/08/20 12:34 ABG Sodium 143.6 mmol/L (136.0-145.0) 03/08/20 12:34 ABG Potassium 3.8 mmol/L (3.40-4.50) 03/08/20 12:34 ABG Chloride 102.0 mmol/L (98-107) 03/08/20 12:34 ABG Glucose 176 mg/dL (65-95) H 03/08/20 12:34 Oxyhemoglobin 94.7 % (95.0-99.0) L 03/06/20 04:34 Carboxyhemoglobin 0.7 (0.5-1.5) 03/08/20 12:34 FiO2 30 03/08/20 12:34 Sodium 133 mmol/L (137-145) L 03/30/20 14:47 Potassium 4.7 mmol/L (3.6-5.0) 03/30/20 14:47 Chloride 94.6 mmol/L (98-107) L 03/30/20 14:47 Carbon Dioxide 33 mmol/L (22-30) H 03/30/20 14:47 Anion Gap 10 mmol/L 03/30/20 14:47 BUN 16 mg/dL (9-20) 03/30/20 14:47 Creatinine < 0.2 mg/dL (0.8-1.3) L 03/30/20 14:47 Estimated GFR > 60 ml/min 03/30/20 14:47 BUN/Creatinine Ratio 80 % 03/30/20 14:47 Glucose 194 mg/dL (75-100) H 03/30/20 14:47 POC Glucose 123 mg/dL (70-105) H 04/04/20 11:47 Lactic Acid 1.00 mmol/L (0.7-2.0) 02/24/20 12:07 Calcium 9.1 mg/dL (8.4-10.2) 03/30/20 14:47 Phosphorus 3.30 mg/dL (2.5-4.5) 03/29/20 14:35 Magnesium 2.00 mg/dL (1.7-2.3) 03/29/20 14:35 Ferritin 1715.0 ng/mL (30.0-300.0) H 02/24/20 10:01 Total Bilirubin 0.40 mg/dL (0.1-1.2) 03/30/20 14:47 AST 22 units/L (5-40) 03/30/20 14:47 ALT 16 units/L (7-56) 03/30/20 14:47 Alkaline Phosphatase 78 units/L (35-129) 03/30/20 14:47 Lactate Dehydrogenase 303 units/L (91-180) H 02/24/20 09:19 Total Creatine Kinase 47 units/L (55-170) L 03/28/20 17:17 CK-MB (CK-2) 2.2 ng/mL (0.0-4.0) 03/28/20 17:17 CK-MB (CK-2) Rel Index 4.6 (0-4) H 03/28/20 17:17 Troponin T 0.090 ng/mL (0.00-0.029) H 03/28/20 17:17 C-Reactive Protein 4.70 mg/dL (0.00-1.30) H 02/28/20 11:05 NT-Pro-B Natriuret Pep 48.30 pg/mL (0-900) 02/24/20 09:19 Total Protein 7.7 g/dL (6.3-8.2) 03/30/20 14:47 Albumin 2.8 g/dL (3.9-5) L 03/30/20 14:47 Albumin/Globulin Ratio 0.6 % 03/30/20 14:47 Prealbumin 0.090 g/L (0.200-0.400) L 02/28/20 12:54 Triglycerides 34 mg/dL (2-149) 03/22/20 18:00 Cholesterol 104 mg/dL (50-199) 03/22/20 18:00 LDL Cholesterol Direct 54 mg/dL (50-130) 03/22/20 18:00 HDL Cholesterol 40 mg/dL (40-59) 03/22/20 18:00 Cholesterol/HDL Ratio 2.60 % 03/22/20 18:00 Procalcitonin < 0.05 ng/mL (<0.15) 03/28/20 17:12 Arterial Blood Glucose 176 mg/dL (65-95) H 03/08/20 12:34 Arterial Blood Ionized Calcium 4.5 mg/dL (4.6-5.3) L 03/08/20 12:34 Urine Color Yellow (Yellow) 03/28/20 11:36 Urine Turbidity Hazy (Clear) 03/28/20 11:36 Urine pH 5.0 (5.0-7.0) 03/28/20 11:36 Ur Specific [place] 1.026 (1.003-1.030) 03/28/20 11:36 Urine Protein 100 mg/dl mg/dL (Negative) 03/28/20 11:36 Urine Glucose (UA) Neg mg/dL (Negative) 03/28/20 11:36 Urine Ketones Neg mg/dL (Negative) 03/28/20 11:36 Urine Blood Neg (Negative) 03/28/20 11:36 Urine Nitrite Neg (Negative) 03/28/20 11:36 Urine Bilirubin Neg (Negative) 03/28/20 11:36 Urine Urobilinogen 4.0 mg/dL (<2.0) 03/28/20 11:36 Ur Leukocyte Esterase Mod (Negative) 03/28/20 11:36 Urine WBC (Auto) 39.0 /HPF (0.0-6.0) H 03/28/20 11:36 Urine RBC (Auto) 16.0 /HPF (0.0-6.0) 03/28/20 11:36 U Epithel Cells (Auto) < 1.0 /HPF (0-13.0) 03/08/20 08:57 Urine Bacteria (Auto) 2+ /HPF (Negative) 03/28/20 11:36 Urine Mucus 3+ /HPF 03/28/20 11:36 Urine Yeast (Budding) 2+ /HPF 03/28/20 11:36 Vancomycin Trough 8.0 ug/mL (5.0-20.0) 03/04/20 08:59 Coronavirus (PCR) Negative (Negative) 02/25/20 09:03 - Diagnostic Impressions Diagnostic Impressions: Echocardiogram 02/26/20 10:41 Transthoracic Echocardiogram Indication: Elevated Trop BP: 116/75 HR: 85 Conclusions *Global left ventricular wall motion and contractility are within normal limits. *The estimated ejection fraction is 50-55%. *Abnormal left ventricular diastolic filling is observed, consistent with impaired relaxation. *There is no pericardial effusion. Findings Left Ventricle: The left ventricular chamber size is normal. Global left ventricular wall motion and contractility are within normal limits. Global left ventricular systolic function is normal. The estimated ejection fraction is 50-55%. Abnormal left ventricular diastolic filling is observed, consistent with impaired relaxation. Left Atrium: The left atrial chamber size is normal. Right Ventricle: The right ventricular cavity size is normal. Right Atrium: The right atrial cavity size is normal. Aortic Valve: Mild aortic leaflet calcification is visualized. There is no evidence of aortic regurgitation. Mitral Valve: The mitral valve leaflets are mildly thickened. There is no evidence of mitral regurgitation. Tricuspid Valve: The tricuspid valve leaflets are normal. There is trace tricuspid regurgitation. The right ventricular systolic pressure is calculated at 29 mmHg. Pulmonic Valve: The pulmonic valve is not well visualized. Pericardium: There is no pericardial effusion. Aorta: The aorta appears normal. Venous: The inferior vena cava is dilated. There is less than 50% respiratory change in the inferior vena cava dimension. Measurements Chambers 2D Name Value Normal Range IVSd (2D) 0.97 cm (0.6 - 1.1) LVPWd (2D) 0.93 cm (0.6 - 1.1) LVIDd (2D) 4 cm (3.7 - 5.6) LVIDs (2D) 2.73 cm (2 - 3.8) LV FS (2D) 31.67 % - EF Teichholz (2D) 60.23 % - Ao root diameter (2D) 3.51 cm (2 - 3.7) Volumes/Mass Name Value Normal Range LA ESV SP 4CH (A/L) 8.43 ml - LA ESV SP 2CH (A/L) 18.89 ml - LA ESV BP (A/L) 13.02 ml - LA ESV BP (A/L) index 8.8 ml/m2 - LA ESV SP 4CH (MOD) 7.22 ml - LA ESV SP 2CH (MOD) 18.15 ml - LA ESV BP (MOD) 11.47 ml - LA ESV BP (MOD) index 7.75 ml/m2 - Diastolic/Systolic Function Name Value Normal Range MV E-wave Vmax 0.51 m/sec - MV deceleration time 180.22 msec - MV A-wave Vmax 0.62 m/sec - MV E:A ratio 0.82 ratio - Aortic Valve Name Value Normal Range AV Vmax 1.17 m/sec - AV VTI 19.71 cm - AV peak gradient 5.44 mmHg - AV mean gradient 3.38 mmHg - LVOT diameter 2.26 cm - LVOT Vmax 0.89 m/sec - LVOT VTI 13.72 cm - LVOT peak gradient 3.17 mmHg - LVOT mean gradient 1.67 mmHg - SV LVOT 55.03 ml - SHARAD (continuity Vmax) 3.06 cm2 - SHARAD (continuity VTI) 2.79 cm2 - Tricuspid Valve Name Value Normal Range TR Vmax 2.3 m/sec - TR peak gradient 21 mmHg - RAP 8 mmHg - RVSP 29 mmHg - IVC diameter 2.59 cm (1.2 - 2.3) Pulmonic Valve/Qp:Qs Name Value Normal Range PV acceleration time 68.51 msec - Drake/IV: Voiding Method Indwelling Catheter IV Catheter Type [Left Hand] Peripheral IV IV Catheter Type [Right Hand] Peripheral IV IV Catheter Type [Left Wrist] Peripheral IV IV Catheter Type [Right Peripheral IV Forearm] IV Catheter Type [Right Triple Lumen Cath Internal Jugular] IV Catheter Type [Left Forearm INT / Saline Lock ] IV Catheter Type [Right Triple Lumen Cath Femoral] IV Catheter Type [Right INT / Saline Lock Antecubital] Active Medications - Current Medications Current Medications: Generic Name Dose Route Start Last Admin Trade Name Freq PRN Reason Stop Dose Admin Acetaminophen 650 mg 02/24/20 15:13 03/08/20 00:10 Tylenol PO 650 mg Q4H PRN Administration Pain, Mild (1-3) Albuterol 2.5 mg 02/24/20 15:13 Proventil IH Q4HRT PRN Shortness Of Breath Alprazolam 0.5 mg 03/30/20 14:19 04/03/20 22:11 Xanax PO 0.5 mg Q8H PRN Administration Anxiety Lipase/Protease/Amylase 1 each 02/26/20 11:[address] 10,500 Unit FEEDTUBE PRN PRN For Clogged Feeding Tube Baclofen 10 mg 04/03/20 12:00 04/04/20 09:05 Lioresal PO 10 mg BID ALISA Administration Bisacodyl 10 mg 03/12/20 18:00 03/15/20 17:50 Dulcolax [place] 10 mg QDAY PRN Administration Bowel Movement Docusate Sodium 100 mg 04/03/20 12:00 04/04/20 09:04 Colace FEEDTUBE 100 mg BID ALISA Administration Enoxaparin Sodium 40 mg 03/20/20 22:00 04/03/20 22:12 Enoxaparin SUB-Q 40 mg QDAY@2200 ALISA Administration Protocol Glycopyrrolate 2 mg 03/26/20 08:00 04/04/20 08:52 Robinul PO 2 mg TID ALISA Administration Lansoprazole 30 mg 02/28/20 10:00 04/04/20 09:04 Prevacid Solutab FEEDTUBE 30 mg QDAY ALISA Administration Lidocaine 1 each 03/31/20 10:00 04/04/20 09:05 Lidoderm 5% TD 1 each QDAY ALISA Administration Metoprolol Tartrate 12.5 mg 02/24/20 22:00 04/04/20 09:05 Metoprolol PO 12.5 mg BID ALISA Administration Morphine Sulfate 2 mg 02/29/20 16:42 04/04/20 12:08 Morphine IV 2 mg Q4H PRN Administration Pain, Moderate (4-6) Pregabalin 150 mg 04/03/20 12:00 04/04/20 09:05 Pregabalin PO 150 mg BID ALISA Administration Scopolamine 1 each 03/03/20 14:00 04/02/20 09:01 Transderm-Scop TD 1 each Q3D ALISA Administration Senna 17.2 mg 04/03/20 22:00 04/03/20 22:12 Senokot PO 17.2 mg QHS ALISA Administration Simple Syrup 15 ml 02/26/20 11:16 Simple Syrup FEEDTUBE PRN PRN Hypoglycemia Simple Syrup 30 ml 02/26/20 11:16 Simple Syrup FEEDTUBE PRN PRN Hypoglycemia Sodium Bicarbonate 325 mg 02/26/20 11:16 Sodium Bicarbonate FEEDTUBE PRN PRN For Clogged Feeding Tube Sodium Hypochlorite 1 applic 03/31/20 13:00 04/04/20 09:06 Dakin's Half Strength TP 1 applicatio BID ALISA Administration Tamsulosin HCl 0.4 mg 03/09/20 18:00 04/04/20 09:05 Flomax PO 0.4 mg QDAY ALISA Administration Zolpidem Tartrate 10 mg 03/31/20 20:15 04/03/20 22:11 Ambien PO 10 mg QHS PRN Administration Sleep Nutrition/Malnutrition Assess - Dietary Evaluation Nutrition/Malnutrition Findings: Nutrition Notes Start: 02/26/20 10:40 Freq: Status: Active Protocol: Document 04/04/20 12:26 AB (Rec: 04/04/20 12:35 AB [id number]) Co-Sign 04/04/20 12:26 LM Nutrition Notes Initial or Follow up Reassessment Current Diagnosis Decubitus(Pressure Ulcer), Sepsis,Respiratory Failure Other Pertinent Diagnosis COVID-19 (-), ALS, pneumonia, Hip/buttock PU Current Diet Vital AF 1.2 at 75ml/hr (goal rate) Labs/Tests Reviewed Pertinent Medications Reviewed Height 6 ft Weight 65.8 kg [place] Body Weight (kg) 80.90 BMI 19.6 Weight Status Appropriate Subjective/Other Information F/U for TF tolerance. TF is running at goal and pt is tolerating it. Pt had BM over night, per nurse. Percent of energy/protein needs met: 100%/100% Burn Absent Trauma Absent GI Symptoms None Skin Integrity/Comment Pressure Ulcer Stage 2 Current % PO Negligible Minimum of two criteria Yes Body Fat Depletion Mild depletion (non-severe) Muscle Mass Mild Depletion (non-severe) Reduced Credit Director Strength Measurably Reduced (severe) #3 Nutrition Diagnosis Malnutrition Diagnosis Progress(for reassessment Continues documentation) #2 Nutrition Diagnosis Inadequate oral intake Diagnosis Progress(for reassessment Continues documentation) #1 Nutrition Diagnosis Increased nutrient needs ( specify in comment below) Diagnosis Progress(for reassessment Continues documentation) Is patient on ventilator? Yes Is Patient Ambulatory and/or Out of Bed No [facility] 1818.072 Kcal/Kg value to use for calculation 35 Approximate Energy Requirements Using 2303 kcal/Kg Calculation Used for Recommendations Kcal/kg Additional Notes Protein needs: 88-147 g (1.2-2 g/ kg ABW) Fluid: 1ml/kcal Nutrition Intervention Change Diet Order: Continue TF Nutrition Support: Vital AF 1.2 at 75ml/hr. Flush 200ml q4h For hyponatremia, flush 150 mL q4h Kcal 2,160 Protein (gm) 135 Fluid (mL) 1,460 Add Supplement/Snack (indicate name/kcal Will BID /protein ) Provides kCal: 190 Provides Protein (gm) 5 Goal #1 Meet at least 80% of energy and protein needs via TF Goal #2 Wound healing Anticipated Discharge Needs: Unable to determine at this time Follow-Up By: 04/11/20 Additional Comments F/U for TF tolerance
[2020-04-04] MEDS: ALPRAZolam 0.5 MG TAB PO PRN (14:59)
[2020-04-04] MEDS: ENOXAPARIN 40 MG/0.4 ML INJ SUB-Q SCH (21:08)
[2020-04-04] MEDS: ZOLPIDEM 5 MG TAB PO PRN (21:09)
[2020-04-04] MEDS: SENNOSIDES 8.6 MG TAB PO SCH (21:09)
--- NOTE | 2020-04-05 09:16 | Progress Note ---
Assessment and Plan Assessment and plan: 59-year-old male patient with significant past medical history of ALS, presented to ED with worsening shortness of breath since the morning [employer]. Patient was on a trilogy machine for breathing 18/11. EMS arrived, patient had O2 sats in the 80s. EMS attempted to place patient on their CPAP machine, hill john patient did not tolerate. Patient was admitted to the ICU with diagnosis of acute hypoxic respiratory failure and placed on BiPAP. Patient initially tolerated but later deteriorated with respiratory status. CTA chest showed no PE but significant for bilateral pneumonia. Doppler ultrasound also negative for DVT. COVID-19 test ordered. Due to persistent hypoxia, patient was intubated on 02/26/2020 at 1500. Patient now on mechanical ventilation in the ICU. 02/26/2020. Blood cultures are negative x48 hours and Covid testing negative as well. Continue antibiotics per ID recommendations for community-acquired bilateral pneumonia. Cardiology consultation for elevated troponin. Check echocardiogram. 02/27/2020. Events of yesterday noted with asystole following V. fib arrest. Patient currently on AC mode rate 20, tidal volume 400, FiO2 50% and a PEEP of 6. Follow-up echocardiogram for elevated troponin. Cardiology suspects NSTEMI Type 2 in the setting of acute resp failure. Chest CTA and BLE Dopplers neg. we will discontinue Decadron given the Covid PCR is negative. 02/25/2020. CTA of the chest reveals no PE but does illustrate the bilateral pneumonia. Doppler ultrasound also negative for DVT. Blood cultures are pending. Await COVID-19 testing. Patient currently requiring BiPAP IPAP 24/EPAP 6 with FiO2 of 25%. Continue O2 and BiPAP as clinically indicated. ID and pulmonary consulted. 02/26/2020. Blood cultures are negative x48 hours and Covid testing negative as well. Continue antibiotics per ID recommendations for community-acquired bilateral pneumonia. Cardiology consultation for elevated troponin. Check echocardiogram. 02/27/2020. Events of yesterday noted with asystole following V. fib arrest. Patient currently on AC mode rate 20, tidal volume 400, FiO2 50% and a PEEP of 6. Follow-up echocardiogram for elevated troponin. Cardiology suspects NSTEMI Type 2 in the setting of acute resp failure. Chest CTA and BLE Dopplers neg. we will discontinue Decadron given the Covid PCR is negative. 02/28/2020. I spoke with the sister Felisa Eli who is the power of title attorney regarding advanced directives and she instructed me that she would like to continue with aggressive care at this time. I informed her of the guarded prognosis and high mortality/morbidity and she voiced understanding. Patient currently with AC mode ventilation rate 18, tidal volume 400, FiO2 40% and a PEEP of 6. Continue antibiotics for pneumonia. ID previously consulted. Also consult neurology with regards to ALS. 02/29/2020; patient is intubated and on CPAP patient is alert and oriented. Patient has ALS. Dr. Álvarez spoke with his sister and she wants aggressive care. Continue antibiotics for pneumonia. Neurology consulted for ALS. Prognosis poor 03/01/2020; patient is intubated and on CPAP, patient is alert and oriented. I spoke with his 2 sisters about the management plan. 03/02/2020; patient is intubated and on CPAP. Patient was alert and oriented. I spoke with Dr. mohr and he thinks patient may need mechanical ventilation, likely his disease progressed. Dr. Flowers did debridement this morning. 03/03/2020; patient is intubated and on CPAP, patient was on trilogy and BiPAP at home. Patient has ALS. on spontaneous breathing trial. Patient is alert and oriented but quadriplegic. Patient has severe bilateral pneumonia and is on cefepime and Vanco, ID is following. Patient has sacral decubitus ulcer and debridement was done by Dr. Flowers and there is no osteomyelitis. 03/05. Patient still on broad-spectrum antibiotics. Status post sacral decubitus ulcer debridements-no osteomyelitis. Patient is on AC 25/400/30% PEEP 5. No blood gas results today. 03/06. Plan for tracheostomy by surgery. Still remains intubated. Labs reviewed-sodium 150. Started on free water 200 every 8hr. trend sodium. 03/07: s/p trach placement today, patient placed back on mechanical ventilation with trach. Plan to resume tube feeding with NG tube. Continue to monitor vitals, monitor BMP. 03/08: Patient noted to have distended abdomen with low urinary output. Obtain bladder scan rule out urine retention, UA and urine culture, continue to follow clinically. 03/09: Patient noted to have low blood pressure with SBP as low as 70s. Ordered for 500 mils normal saline bolus. CT abdomen showed bladder outlet obstruction, urology consulted. 03/10: placed on drake by urology o/n, improved urine outpt. cont to monitor BMP. resuded TF - cont free water with TF. wean off from vent as tolerated. 03/11: Vitals stable. cont TF, wean off from vent as tolerated. start on 1/2 NS for hypernatremia - follow BMP 03/12: wean off vent as tolerated, plan for speech eval, cont Tf for now, cont iv fluid 03/13: unable to wean off from vent, unable to do speech therapy eval. will need PEG tube, cont supportive care for now, cont NG tube feeding 03/14: consulted GI for PEg placemnet, cont supportive care. remains on vent at night 03/15: Discussed with GI, plan for PEG tube placement possibly tomorrow. Continue supportive care and wean off from vent as tolerated. Hold Lovenox dose tonight. 03/16: family didnot consent for PEG placement yesterday. I spoke with the daughter today and she is now agreeable for PEG tube. I explained the necessity of the procedure with RN to the patient also and he nodded started on tube feeding, for the procedure. will cont supportive care. planned for PEG tube placement tomorrow. 03/17: s/p PEG placement today, patient tolerated well, cont supportive care 03/18: Started on tube feeding with new PEG tube, continue to wean off vent as tolerated 03/19: cont to monitor with supportive care, wean off vent as tolerated 03/20: Continue to wean off vent as tolerated -but failing weaning trial. Still requiring vent support at night. Currently on PEG tube for tube feed. 03/21. Pt with PSV trials with FiO@ 30%, PEEP 6, PS 10. Currently on PEG tube for tube feed. 03/22/2020. Continue PSV trials per pulmonary. Continue bronchodilators. Patient tolerating tube feedings. Continue Robinul for secretion control. 03/23/2020. Continue PSV trials per pulmonary. Continue bronchodilators. Continue Scopolamine and Robinul for secretion control. Trach care/airway management. Mobility protocols for pressure ulcer prophylaxis. LTAC evaluation per case management 03/24/2020. Continue PSV trials with current settings pressure support 10, PEEP 6 and FiO2 30%. Continue bronchodilators/nebulizer. Continue Scopolamine and Robinul for secretion control. Trach care/airway management. Mobility protocols for pressure ulcer prophylaxis. LTAC evaluation per case management 03/25/2020. Pulmonary to proceed with T-piece trials today. Continue bronchodilators/nebulizer. Continue Scopolamine and Robinul for secretion control. Trach care/airway management. Mobility protocols for pressure ulcer prophylaxis. 03/26/2020. Patient currently with PSV 10/6 at FiO2 of 30%. Continue weaning and T-piece trials per protocol. Continue bronchodilators/nebulizer. Continue Scopolamine and Robinul for secretion control. Trach care/airway management. Mobility protocols for pressure ulcer prophylaxis. Continue tube feeding with aspiration precautions. 03/27/2020. Patient currently with PSV 10/6 at FiO2 of 30%. Continue weaning and T-piece trials per protocol. Continue bronchodilators/nebulizer. Continue Scopolamine and Robinul for secretion control. Trach care/airway management. Mobility protocols for pressure ulcer prophylaxis. Continue tube feeding with aspiration precautions. 03/28. Had temp 100.7F. He has been off antibiotics. Will send blood culture, ua, urine culture and chest xray. Had chest pain overnight and trop was elevated as well. Cardiology to evaluate 03/29. Has back pain due to position. He mentions his chest pain is positional. Has no other complaints. Still on mechanical ventilation 03/30. No chest pain today. Labs reviewed. Discussed chest pain with cardiology and team advised no further work up at this time. Can follow up with cardiology in the office after hospitalization 03/31. Lidocaine patch for lower back pain. 04/01. Discharge planning underway. CM notes reviewed. Discussed with daughter 04/02. CM trying to arrange discharge. Continue PSV trials. Discussed with patients significant other 04/04/2020; CM is working for discharge arrangement. Continue PSV trials. 04/05/2020; patient was seen and evaluated this morning and no change from baseline. Continue with PSV trials. Follow with card mounter for discharge planning. The high probability of a clinically significant, sudden or life threatening det erioration of the [cardiac and respiratory] system(s) required my full and direct attention, intervention and personal management. The aggregate critical care time was [32] minutes. This time is in addition to time spent performing reported procedures but includes the following: [x] Data Review and interpretation [x] Patient assessment and monitoring of vital signs [x] Documentation [x] Medication orders and management History Interval history: Patient was seen and evaluated this morning Patient is intubated, on trach Patient is awake Hospitalist Physical - Physical exam Narrative exam: Intubated, on a trach The patient appeared well nourished and normally developed. Vital signs as documented. Head exam is unremarkable. No scleral icterus . Neck is without jugular venous distension, thyromegaly, or carotid bruits. Lungs are clear to auscultation. Cardiac exam reveals regular rate and Rhythm. Abdominal exam reveals normal bowel sounds, nontender, no organomegaly. Extremities are nonedematous and both femoral and pedal pulses are normal. [employer] OFFICER:awake. 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 - Constitutional Vitals: Temp Pulse Resp BP Pulse Ox 98.8 F 99 H 16 118/79 95 04/05/20 04:00 04/05/20 07:59 04/05/20 06:00 04/05/20 07:59 04/05/20 08:06 General appearance: Present: mild distress, other (Intubated on mechanical ventilation) HEART Score - HEART Score Troponin: Troponin T 0.090 ng/mL (0.00-0.029) H 03/28/20 17:17 Results - Labs CBC & Chem 7: 03/30/20 14:47 03/30/20 14:47 Labs: Laboratory Last Values WBC 19.9 K/mm3 (4.5-11.0) H 03/30/20 14:47 RBC 4.01 M/mm3 (3.65-5.03) 03/30/20 14:47 Hgb 10.9 gm/dl (11.8-15.2) L 03/30/20 14:47 Hct 34.4 % (35.5-45.6) L 03/30/20 14:47 MCV 86 fl (84-94) 03/30/20 14:47 MCH 27 pg (28-32) L 03/30/20 14:47 MCHC 32 % (32-34) 03/30/20 14:47 RDW 16.5 % (13.2-15.2) H 03/30/20 14:47 Plt Count 441 K/mm3 (140-440) H 03/30/20 14:47 Lymph % (Auto) 6.4 % (13.4-35.0) L 03/30/20 14:47 Pike % (Auto) 7.2 % (0.0-7.3) 03/30/20 14:47 Eos % (Auto) 0.1 % (0.0-4.3) 03/30/20 14:47 Baso % (Auto) 0.2 % (0.0-1.8) 03/30/20 14:47 Lymph # (Auto) 1.3 K/mm3 (1.2-5.4) 03/30/20 14:47 Pike # (Auto) 1.4 K/mm3 (0.0-0.8) H 03/30/20 14:47 Eos # (Auto) 0.0 K/mm3 (0.0-0.4) 03/30/20 14:47 Baso # (Auto) 0.0 K/mm3 (0.0-0.1) 03/30/20 14:47 Add Manual Diff Complete 03/28/20 10:28 Total Counted 100 03/28/20 10:28 Seg Neutrophils % 86.1 % (40.0-70.0) H 03/30/20 14:47 Seg Neuts % (Manual) 89.0 % (40.0-70.0) H 03/28/20 10:28 Band Neutrophils % 0 % 03/28/20 10:28 Lymphocytes % (Manual) 5.0 % (13.4-35.0) L 03/28/20 10:28 Reactive Lymphs % (Man) 0 % 03/28/20 10:28 Monocytes % (Manual) 5.0 % (0.0-7.3) 03/28/20 10:28 Eosinophils % (Manual) 0 % (0.0-4.3) 03/28/20 10:28 Basophils % (Manual) 1.0 % (0.0-1.8) 03/28/20 10:28 Metamyelocytes % 0 % 03/28/20 10:28 Myelocytes % 0 % 03/28/20 10:28 Promyelocytes % 0 % 03/28/20 10:28 Blast Cells % 0 % 03/28/20 10:28 Nucleated RBC % Not Reportable 03/28/20 10:28 Seg Neutrophils # 17.1 K/mm3 (1.8-7.7) H 03/30/20 14:47 Seg Neutrophils # Man 21.0 K/mm3 (1.8-7.7) H 03/28/20 10:28 Band Neutrophils # 0.0 K/mm3 03/28/20 10:28 Lymphocytes # (Manual) 1.2 K/mm3 (1.2-5.4) 03/28/20 10:28 Abs React Lymphs (Man) 0.0 K/mm3 03/28/20 10:28 Monocytes # (Manual) 1.2 K/mm3 (0.0-0.8) H 03/28/20 10:28 Eosinophils # (Manual) 0.0 K/mm3 (0.0-0.4) 03/28/20 10:28 Basophils # (Manual) 0.2 K/mm3 (0.0-0.1) H 03/28/20 10:28 Metamyelocytes # 0.0 K/mm3 03/28/20 10:28 Myelocytes # 0.0 K/mm3 03/28/20 10:28 Promyelocytes # 0.0 K/mm3 03/28/20 10:28 Blast Cells # 0.0 K/mm3 03/28/20 10:28 WBC Morphology Not Reportable 03/28/20 10:28 Hypersegmented Neuts Not Reportable 03/28/20 10:28 Hyposegmented Neuts Not Reportable 03/28/20 10:28 Hypogranular Neuts Not Reportable 03/28/20 10:28 Smudge Cells Not Reportable 03/28/20 10:28 Toxic Granulation 1+ 03/28/20 10:28 Toxic Vacuolation Not Reportable 03/28/20 10:28 Dohle Bodies Not Reportable 03/28/20 10:28 Pelger-Huet Anomaly Not Reportable 03/28/20 10:28 Robert Rods Not Reportable 03/28/20 10:28 Platelet Estimate Consistent w auto 03/28/20 10:28 Clumped Platelets Not Reportable 03/28/20 10:28 Plt Clumps, EDTA Not Reportable 03/28/20 10:28 Large Platelets Not Reportable 03/28/20 10:28 Giant Platelets Not Reportable 03/28/20 10:28 Platelet Satelliting Not Reportable 03/28/20 10:28 Plt Morphology Comment Not Reportable 03/28/20 10:28 RBC Morphology Not Reportable 03/28/20 10:28 Dimorphic RBCs Not Reportable 03/28/20 10:28 Polychromasia Not Reportable 03/28/20 10:28 Hypochromasia Not Reportable 03/28/20 10:28 Poikilocytosis Not Reportable 03/28/20 10:28 Anisocytosis 1+ 03/28/20 10:28 Microcytosis Not Reportable 03/28/20 10:28 Macrocytosis Not Reportable 03/28/20 10:28 Spherocytes Not Reportable 03/28/20 10:28 Pappenheimer Bodies Not Reportable 03/28/20 10:28 Sickle Cells Not Reportable 03/28/20 10:28 Target Cells Not Reportable 03/28/20 10:28 Tear Drop Cells Not Reportable 03/28/20 10:28 Ovalocytes Not Reportable 03/28/20 10:28 Stomatocytes Few 03/17/20 04:40 Helmet Cells Not Reportable 03/28/20 10:28 [place] Bodies Not Reportable 03/28/20 10:28 Kincaid Rings Not Reportable 03/28/20 10:28 Albright Cells Not Reportable 03/28/20 10:28 Bite Cells Not Reportable 03/28/20 10:28 Crenated Cell Not Reportable 03/28/20 10:28 Elliptocytes Not Reportable 03/28/20 10:28 Acanthocytes (Spur) Not Reportable 03/28/20 10:28 Rouleaux Not Reportable 03/28/20 10:28 Hemoglobin C Crystals Not Reportable 03/28/20 10:28 Schistocytes Not Reportable 03/28/20 10:28 Malaria parasites Not Reportable 03/28/20 10:28 Colton Bodies Not Reportable 03/28/20 10:28 Hem Pathologist Commnt No 03/28/20 10:28 PT 15.6 Sec. (12.2-14.9) H 02/24/20 09:19 INR 1.21 (0.87-1.13) H 02/24/20 09:19 APTT 25.4 Sec. (24.2-36.6) 02/24/20 09:19 D-Dimer 1311.96 ng/mlDDU (0-234) H 02/24/20 09:19 ABG pH 7.371 (7.320-7.450) 03/08/20 12:34 POC ABG pCO2 63.1 mmHg (32.0-48.0) H 03/08/20 12:34 ABG pCO2 60.1 mm Hg 03/06/20 04:34 POC ABG pO2 90.5 mmHg (83-108) 03/08/20 12:34 ABG pO2 88.6 mm Hg (80.0-90.0) 03/06/20 04:34 POC ABG HCO3 35.7 03/08/20 12:34 ABG HCO3 37.9 mmol/L (20.0-26.0) H 03/06/20 04:34 ABG O2 Saturation 97.0 % (95.0-99.0) 03/06/20 04:34 ABG O2 Content 14.3 (0.0-44) 03/06/20 04:34 POC ABG Base Excess 8.7 03/08/20 12:34 ABG Base Excess 11.4 mmol/L (-2.0-3.0) H 03/06/20 04:34 ABG Hemoglobin 10.9 (12.0-17.5) L 03/08/20 12:34 ABG Oxyhemoglobin 95.9 (94-98) 03/08/20 12:34 ABG Carboxyhemoglobin 1.7 % (0.0-5.0) 03/06/20 04:34 ABG Methemoglobin 0.3 (0.0-1.5) 03/08/20 12:34 ABG Sodium 143.6 mmol/L (136.0-145.0) 03/08/20 12:34 ABG Potassium 3.8 mmol/L (3.40-4.50) 03/08/20 12:34 ABG Chloride 102.0 mmol/L (98-107) 03/08/20 12:34 ABG Glucose 176 mg/dL (65-95) H 03/08/20 12:34 Oxyhemoglobin 94.7 % (95.0-99.0) L 03/06/20 04:34 Carboxyhemoglobin 0.7 (0.5-1.5) 03/08/20 12:34 FiO2 30 03/08/20 12:34 Sodium 133 mmol/L (137-145) L 03/30/20 14:47 Potassium 4.7 mmol/L (3.6-5.0) 03/30/20 14:47 Chloride 94.6 mmol/L (98-107) L 03/30/20 14:47 Carbon Dioxide 33 mmol/L (22-30) H 03/30/20 14:47 Anion Gap 10 mmol/L 03/30/20 14:47 BUN 16 mg/dL (9-20) 03/30/20 14:47 Creatinine < 0.2 mg/dL (0.8-1.3) L 03/30/20 14:47 Estimated GFR > 60 ml/min 03/30/20 14:47 BUN/Creatinine Ratio 80 % 03/30/20 14:47 Glucose 194 mg/dL (75-100) H 03/30/20 14:47 POC Glucose 123 mg/dL (70-105) H 04/05/20 05:14 Lactic Acid 1.00 mmol/L (0.7-2.0) 02/24/20 12:07 Calcium 9.1 mg/dL (8.4-10.2) 03/30/20 14:47 Phosphorus 3.30 mg/dL (2.5-4.5) 03/29/20 14:35 Magnesium 2.00 mg/dL (1.7-2.3) 03/29/20 14:35 Ferritin 1715.0 ng/mL (30.0-300.0) H 02/24/20 10:01 Total Bilirubin 0.40 mg/dL (0.1-1.2) 03/30/20 14:47 AST 22 units/L (5-40) 03/30/20 14:47 ALT 16 units/L (7-56) 03/30/20 14:47 Alkaline Phosphatase 78 units/L (35-129) 03/30/20 14:47 Lactate Dehydrogenase 303 units/L (91-180) H 02/24/20 09:19 Total Creatine Kinase 47 units/L (55-170) L 03/28/20 17:17 CK-MB (CK-2) 2.2 ng/mL (0.0-4.0) 03/28/20 17:17 CK-MB (CK-2) Rel Index 4.6 (0-4) H 03/28/20 17:17 Troponin T 0.090 ng/mL (0.00-0.029) H 03/28/20 17:17 C-Reactive Protein 4.70 mg/dL (0.00-1.30) H 02/28/20 11:05 NT-Pro-B Natriuret Pep 48.30 pg/mL (0-900) 02/24/20 09:19 Total Protein 7.7 g/dL (6.3-8.2) 03/30/20 14:47 Albumin 2.8 g/dL (3.9-5) L 03/30/20 14:47 Albumin/Globulin Ratio 0.6 % 03/30/20 14:47 Prealbumin 0.090 g/L (0.200-0.400) L 02/28/20 12:54 Triglycerides 34 mg/dL (2-149) 03/22/20 18:00 Cholesterol 104 mg/dL (50-199) 03/22/20 18:00 LDL Cholesterol Direct 54 mg/dL (50-130) 03/22/20 18:00 HDL Cholesterol 40 mg/dL (40-59) 03/22/20 18:00 Cholesterol/HDL Ratio 2.60 % 03/22/20 18:00 Procalcitonin < 0.05 ng/mL (<0.15) 03/28/20 17:12 Arterial Blood Glucose 176 mg/dL (65-95) H 03/08/20 12:34 Arterial Blood Ionized Calcium 4.5 mg/dL (4.6-5.3) L 03/08/20 12:34 Urine Color Yellow (Yellow) 03/28/20 11:36 Urine Turbidity Hazy (Clear) 03/28/20 11:36 Urine pH 5.0 (5.0-7.0) 03/28/20 11:36 Ur Specific [place] 1.026 (1.003-1.030) 03/28/20 11:36 Urine Protein 100 mg/dl mg/dL (Negative) 03/28/20 11:36 Urine Glucose (UA) Neg mg/dL (Negative) 03/28/20 11:36 Urine Ketones Neg mg/dL (Negative) 03/28/20 11:36 Urine Blood Neg (Negative) 03/28/20 11:36 Urine Nitrite Neg (Negative) 03/28/20 11:36 Urine Bilirubin Neg (Negative) 03/28/20 11:36 Urine Urobilinogen 4.0 mg/dL (<2.0) 03/28/20 11:36 Ur Leukocyte Esterase Mod (Negative) 03/28/20 11:36 Urine WBC (Auto) 39.0 /HPF (0.0-6.0) H 03/28/20 11:36 Urine RBC (Auto) 16.0 /HPF (0.0-6.0) 03/28/20 11:36 U Epithel Cells (Auto) < 1.0 /HPF (0-13.0) 03/08/20 08:57 Urine Bacteria (Auto) 2+ /HPF (Negative) 03/28/20 11:36 Urine Mucus 3+ /HPF 03/28/20 11:36 Urine Yeast (Budding) 2+ /HPF 03/28/20 11:36 Vancomycin Trough 8.0 ug/mL (5.0-20.0) 03/04/20 08:59 Coronavirus (PCR) Negative (Negative) 02/25/20 09:03 - Diagnostic Impressions Diagnostic Impressions: Echocardiogram 02/26/20 10:41 Transthoracic Echocardiogram Indication: Elevated Trop BP: 116/75 HR: 85 Conclusions *Global left ventricular wall motion and contractility are within normal limits. *The estimated ejection fraction is 50-55%. *Abnormal left ventricular diastolic filling is observed, consistent with impaired relaxation. *There is no pericardial effusion. Findings Left Ventricle: The left ventricular chamber size is normal. Global left ventricular wall motion and contractility are within normal limits. Global left ventricular systolic function is normal. The estimated ejection fraction is 50-55%. Abnormal left ventricular diastolic filling is observed, consistent with impaired relaxation. Left Atrium: The left atrial chamber size is normal. Right Ventricle: The right ventricular cavity size is normal. Right Atrium: The right atrial cavity size is normal. Aortic Valve: Mild aortic leaflet calcification is visualized. There is no evidence of aortic regurgitation. Mitral Valve: The mitral valve leaflets are mildly thickened. There is no evidence of mitral regurgitation. Tricuspid Valve: The tricuspid valve leaflets are normal. There is trace tricuspid regurgitation. The right ventricular systolic pressure is calculated at 29 mmHg. Pulmonic Valve: The pulmonic valve is not well visualized. Pericardium: There is no pericardial effusion. Aorta: The aorta appears normal. Venous: The inferior vena cava is dilated. There is less than 50% respiratory change in the inferior vena cava dimension. Measurements Chambers 2D Name Value Normal Range IVSd (2D) 0.97 cm (0.6 - 1.1) LVPWd (2D) 0.93 cm (0.6 - 1.1) LVIDd (2D) 4 cm (3.7 - 5.6) LVIDs (2D) 2.73 cm (2 - 3.8) LV FS (2D) 31.67 % - EF Teichholz (2D) 60.23 % - Ao root diameter (2D) 3.51 cm (2 - 3.7) Volumes/Mass Name Value Normal Range LA ESV SP 4CH (A/L) 8.43 ml - LA ESV SP 2CH (A/L) 18.89 ml - LA ESV BP (A/L) 13.02 ml - LA ESV BP (A/L) index 8.8 ml/m2 - LA ESV SP 4CH (MOD) 7.22 ml - LA ESV SP 2CH (MOD) 18.15 ml - LA ESV BP (MOD) 11.47 ml - LA ESV BP (MOD) index 7.75 ml/m2 - Diastolic/Systolic Function Name Value Normal Range MV E-wave Vmax 0.51 m/sec - MV deceleration time 180.22 msec - MV A-wave Vmax 0.62 m/sec - MV E:A ratio 0.82 ratio - Aortic Valve Name Value Normal Range AV Vmax 1.17 m/sec - AV VTI 19.71 cm - AV peak gradient 5.44 mmHg - AV mean gradient 3.38 mmHg - LVOT diameter 2.26 cm - LVOT Vmax 0.89 m/sec - LVOT VTI 13.72 cm - LVOT peak gradient 3.17 mmHg - LVOT mean gradient 1.67 mmHg - SV LVOT 55.03 ml - SHARAD (continuity Vmax) 3.06 cm2 - SHARAD (continuity VTI) 2.79 cm2 - Tricuspid Valve Name Value Normal Range TR Vmax 2.3 m/sec - TR peak gradient 21 mmHg - RAP 8 mmHg - RVSP 29 mmHg - IVC diameter 2.59 cm (1.2 - 2.3) Pulmonic Valve/Qp:Qs Name Value Normal Range PV acceleration time 68.51 msec - Drake/IV: Voiding Method Indwelling Catheter IV Catheter Type [Left Hand] Peripheral IV IV Catheter Type [Right Hand] Peripheral IV IV Catheter Type [Left Wrist] Peripheral IV IV Catheter Type [Right Peripheral IV Forearm] IV Catheter Type [Right Triple Lumen Cath Internal Jugular] IV Catheter Type [Left Forearm INT / Saline Lock ] IV Catheter Type [Right Triple Lumen Cath Femoral] IV Catheter Type [Right INT / Saline Lock Antecubital] Active Medications - Current Medications Current Medications: Generic Name Dose Route Start Last Admin Trade Name Freq PRN Reason Stop Dose Admin Acetaminophen 650 mg 02/24/20 15:13 03/08/20 00:10 Tylenol PO 650 mg Q4H PRN Administration Pain, Mild (1-3) Albuterol 2.5 mg 02/24/20 15:13 Proventil IH Q4HRT PRN Shortness Of Breath Alprazolam 0.5 mg 03/30/20 14:19 04/04/20 14:59 Xanax PO 0.5 mg Q8H PRN Administration Anxiety Lipase/Protease/Amylase 1 each 02/26/20 11:[address] 10,500 Unit FEEDTUBE PRN PRN For Clogged Feeding Tube Baclofen 10 mg 04/03/20 12:00 04/04/20 21:09 Lioresal PO 10 mg BID ALISA Administration Bisacodyl 10 mg 03/12/20 18:00 03/15/20 17:50 Dulcolax MI 10 mg QDAY PRN Administration Bowel Movement Docusate Sodium 100 mg 04/03/20 12:00 04/04/20 21:07 Colace FEEDTUBE 100 mg BID ALISA Administration Enoxaparin Sodium 40 mg 03/20/20 22:00 04/04/20 21:08 Enoxaparin SUB-Q 40 mg QDAY@2200 ALISA Administration Protocol Glycopyrrolate 2 mg 03/26/20 08:00 04/04/20 21:09 Robinul PO 2 mg TID ALISA Administration Lansoprazole 30 mg 02/28/20 10:00 04/04/20 09:04 Prevacid Solutab FEEDTUBE 30 mg QDAY ALISA Administration Lidocaine 1 each 03/31/20 10:00 04/04/20 09:05 Lidoderm 5% TD 1 each QDAY ALISA Administration Metoprolol Tartrate 12.5 mg 02/24/20 22:00 04/04/20 21:11 Metoprolol PO Not Given BID ALISA Morphine Sulfate 2 mg 02/29/20 16:42 04/04/20 20:22 Morphine IV 2 mg Q4H PRN Administration Pain, Moderate (4-6) Pregabalin 150 mg 04/03/20 12:00 04/04/20 21:08 Pregabalin PO 150 mg BID ALISA Administration Scopolamine 1 each 03/03/20 14:00 04/02/20 09:01 Transderm-Scop TD 1 each Q3D ALISA Administration Senna 17.2 mg 04/03/20 22:00 04/04/20 21:09 Senokot PO 17.2 mg QHS ALISA Administration Simple Syrup 15 ml 02/26/20 11:16 Simple Syrup FEEDTUBE PRN PRN Hypoglycemia Simple Syrup 30 ml 02/26/20 11:16 Simple Syrup FEEDTUBE PRN PRN Hypoglycemia Sodium Bicarbonate 325 mg 02/26/20 11:16 Sodium Bicarbonate FEEDTUBE PRN PRN For Clogged Feeding Tube Sodium Hypochlorite 1 applic 03/31/20 13:00 04/04/20 21:10 Dakin's Half Strength TP 1 applicatio BID ALISA Administration Tamsulosin HCl 0.4 mg 03/09/20 18:00 04/04/20 09:05 Flomax PO 0.4 mg QDAY ALISA Administration Zolpidem Tartrate 10 mg 03/31/20 20:15 04/04/20 21:09 Ambien PO 10 mg QHS PRN Administration Sleep Nutrition/Malnutrition Assess - Dietary Evaluation Nutrition/Malnutrition Findings: Nutrition Notes Start: 02/26/20 10:40 Freq: Status: Active Protocol: Document 04/04/20 12:26 AB (Rec: 04/04/20 12:35 AB [id number]) Co-Sign 04/04/20 12:26 LM Nutrition Notes Initial or Follow up Reassessment Current Diagnosis Decubitus(Pressure Ulcer), Sepsis,Respiratory Failure Other Pertinent Diagnosis COVID-19 (-), ALS, pneumonia, Hip/buttock PU Current Diet Vital AF 1.2 at 75ml/hr (goal rate) Labs/Tests Reviewed Pertinent Medications Reviewed Height 6 ft Weight 65.8 kg [place] Body Weight (kg) 80.90 BMI 19.6 Weight Status Appropriate Subjective/Other Information F/U for TF tolerance. TF is running at goal and pt is tolerating it. Pt had BM over night, per nurse. 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 Yes Is Patient Ambulatory and/or Out of Bed No REE-([place]-confined to bed) 1818.072 Kcal/Kg value to use for calculation 35 Approximate Energy Requirements Using 2303 kcal/Kg Calculation Used for Recommendations Kcal/kg Additional Notes Protein needs: 88-147 g (1.2-2 g/ kg ABW) Fluid: 1ml/kcal Nutrition Intervention Change Diet Order: Continue TF Nutrition Support: Vital AF 1.2 at 75ml/hr. Flush 200ml q4h For hyponatremia, flush 150 mL q4h Kcal 2,160 Protein (gm) 135 Fluid (mL) 1,460 Add Supplement/Snack (indicate name/kcal Will BID /protein ) Provides kCal: 190 Provides Protein (gm) 5 Goal #1 Meet at least 80% of energy and protein needs via TF Goal #2 Wound healing Anticipated Discharge Needs: Unable to determine at this time Follow-Up By: 04/11/20 Additional Comments F/U for TF tolerance
[2020-04-05] MEDS: MORPHINE 2 MG/1 ML INJ IV PRN ×3 (09:58→20:16)
[2020-04-05] MEDS: GLYCOPYRROLATE 1 MG TAB PO SCH ×3 (09:58→20:16)
[2020-04-05] MEDS: LIDOCAINE 5% 1 EACH PATCH TD SCH (09:59)
[2020-04-05] MEDS: DOCUSATE SODIUM 100 MG/10 ML ORAL LIQD FEEDTUBE SCH ×2 (10:30→21:53)
[2020-04-05] MEDS: METOPROLOL TARTRATE 25 MG TAB PO SCH ×2 (10:31→21:57)
[2020-04-05] MEDS: SODIUM HYPOCHLORITE, DAKIN'S 1/2 STRENGTH (0.25%) 473 ML TOPICAL SOLN TP SCH ×2 (10:31→21:58)
[2020-04-05] MEDS: BACLOFEN 10 MG TAB PO SCH ×2 (10:31→21:54)
[2020-04-05] MEDS: PREGABALIN 75 MG CAP PO SCH ×2 (10:31→21:53)
[2020-04-05] MEDS: TAMSULOSIN 0.4 MG CAP PO SCH (10:31)
[2020-04-05] MEDS: LANSOPRAZOLE 30 MG SOLUTAB FEEDTUBE SCH (10:33)
--- NOTE | 2020-04-05 12:05 | Progress Note ---
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 Respiratory Failure Severe Sepsis with Shock Bilateral Pneumonia (Possible aspiration) History of ALS on Trilogy Oropharyngeal Dysphagia PUI-COVID Acute toxic metabolic encephalopathy Elevated D-dimer Elevated troponin possibly type 2 ischemia (remains vent dependent but over the past week no overt decompensation) - will transfer to [facility] but continue care as below: - continue home ventilator training - continue home meds re: chrionic pain (Baclofen, Lyrica) - continue daytime t-piece trial attempts as tolerated (PSV if fails) - continue to optimize electrolytes (prn BMP, Mg & PO4) - repeat CXR prn +/- bronchoscopy for mucus plugging / large volume atelectasis - continue ambien 10 mg qhs prn - continue xanax 0.5 mg po q8h prn - continue Robinul & scopolamine for secretion control - prn electrolytes and optimize K+ & Mg 2+ for best respiratory muscle function - wound care per RN/WCN - continue Scopolamine patch for secretion control - wean supplemental oxygen for target O2 sat's > 92% acutely - bronchodilators with pulmonary hygiene per RT - VAP bundle addressed - continue lung protective strategies - continue bronchodilators with pulmonary hygiene per RT - wean per pulmonary driven protocols otherwise - sedation prn for target RASS 0 to -1 - s/p empiric antiinfectives per ID rec's (Rocephin and Zithromax) - s/p COVID-19 isolation (Airborne & Contact) - empiric Dexamethasone - follow COVID-19 test results (negative) - trend inflammatory markers to aid clinical decision making - enteral nutrition at goal rate as tolerated - Aspiration precautions - accuchecks with glycemic control per SSI (While critically ill target blood glucose of 140-180 mg/dL; avoid hypoglycemia) - avoid nephrotoxins, renally dose all medications - avoid benzodiazepine's, reduce the possibility of delirium - prn analgesia per CPOT score - Maintenance of sleep-wake cycle, avoid delirium - aspiration precautions - G.I. & VTE prophylaxis - PT/OT/ROM exercises - mobility protocols for pressure ulcer prophylaxis - Monitor hemodynamics closely - continue other care per attending / other consultants - discharge planning ongoing concurrently .... Re-evaluate in am & prn CONDITION: CRITICAL PROGNOSIS: GUARDED CODE STATUS: FULL CODE The high probability of a clinically significant, sudden or life-threatening deterioration of the [respiratory, cardiovascular & neurologic] system(s) required my full and direct attention, intervention and personal management. The aggregate critical care time was [32] minutes without overlap. Time includes spent on; [x] Data Review and interpretation [x] Patient assessment and monitoring of vital signs [x] Documentation [x] Medication orders and management Subjective Date of service: 04/05/20 Principal diagnosis: Ac on Ch Hypercapnic & hypoxemic Resp Failure; Severe Sepsis; Jamar PNA; ALS Interval history: Patient is seen today for: Acute on Chronic Hypercapnic & hypoxemic Respiratory Failure; Severe Sepsis with Shock; Bilateral Pneumonia (Possible aspiration); History of ALS on Trilogy; PUI-COVID; Acute toxic metabolic encephalopathy Seen and examined at bedside; 24hour events reviewed; nursing and respiratory care staff consulted; no adverse overnight events reported to me; resting in bed; remains on MVS; tolerating PSV; No N/V/F/C; no new issues Objective Vital Signs - 12hr 04/05/20 04/05/20 04/05/20 00:15 00:30 00:45 Temperature Pulse Rate 111 H 116 H 107 H Pulse Rate [ From Monitor] Respiratory 11 L 18 12 Rate Blood Pressure 110/72 102/70 102/70 O2 Sat by Pulse 93 93 92 Oximetry O2 Sat by Pulse Oximetry [ Assessment] 04/05/20 04/05/20 04/05/20 01:00 01:15 01:30 Temperature Pulse Rate 103 H 109 H 114 H Pulse Rate [ From Monitor] Respiratory 12 13 19 Rate Blood Pressure 101/68 101/68 109/75 O2 Sat by Pulse 92 92 Oximetry O2 Sat by Pulse Oximetry [ Assessment] 04/05/20 04/05/20 04/05/20 01:45 02:00 02:15 Temperature Pulse Rate 108 H 108 H 109 H Pulse Rate [ From Monitor] Respiratory 17 12 13 Rate Blood Pressure 101/68 112/74 109/75 O2 Sat by Pulse 94 94 94 Oximetry O2 Sat by Pulse Oximetry [ Assessment] 04/05/20 04/05/20 04/05/20 02:30 02:45 03:00 Temperature Pulse Rate 104 H 104 H 106 H Pulse Rate [ From Monitor] Respiratory 13 15 17 Rate Blood Pressure 112/76 112/76 113/77 O2 Sat by Pulse 94 94 93 Oximetry O2 Sat by Pulse Oximetry [ Assessment] 04/05/20 04/05/20 04/05/20 03:15 03:30 03:45 Temperature Pulse Rate 104 H 99 H 124 H Pulse Rate [ From Monitor] Respiratory 13 12 21 Rate Blood Pressure 113/77 104/70 104/70 O2 Sat by Pulse 94 94 Oximetry O2 Sat by Pulse Oximetry [ Assessment] 04/05/20 04/05/20 04/05/20 04:00 04:15 04:30 Temperature 98.8 F Pulse Rate 108 H 96 H 102 H Pulse Rate [ 103 H From Monitor] Respiratory 15 19 16 Rate Blood Pressure 110/75 110/75 107/69 O2 Sat by Pulse 95 94 Oximetry O2 Sat by Pulse Oximetry [ Assessment] 04/05/20 04/05/20 04/05/20 04:40 04:44 04:45 Temperature Pulse Rate 114 H 116 H Pulse Rate [ From Monitor] Respiratory 20 16 Rate Blood Pressure 107/69 107/69 O2 Sat by Pulse 94 94 Oximetry O2 Sat by Pulse 94 Oximetry [ Assessment] 04/05/20 04/05/20 04/05/20 05:00 05:15 05:30 Temperature Pulse Rate 90 119 H 103 H Pulse Rate [ From Monitor] Respiratory 37 H 28 H 20 Rate Blood Pressure 105/71 105/71 117/76 O2 Sat by Pulse 93 91 94 Oximetry O2 Sat by Pulse Oximetry [ Assessment] 04/05/20 04/05/20 04/05/20 05:45 06:00 07:59 Temperature Pulse Rate 102 H 106 H 99 H Pulse Rate [ From Monitor] Respiratory 15 16 Rate Blood Pressure 117/76 119/76 118/79 O2 Sat by Pulse 96 95 96 Oximetry O2 Sat by Pulse Oximetry [ Assessment] 04/05/20 04/05/20 04/05/20 08:00 08:06 10:31 Temperature 98.4 F Pulse Rate 117 H Pulse Rate [ From Monitor] Respiratory Rate Blood Pressure 115/83 O2 Sat by Pulse Oximetry O2 Sat by Pulse 95 Oximetry [ Assessment] 04/05/20 11:26 Temperature Pulse Rate 101 H Pulse Rate [ From Monitor] Respiratory 28 H Rate Blood Pressure 102/71 O2 Sat by Pulse 93 Oximetry O2 Sat by Pulse Oximetry [ Assessment] Constitutional: no acute distress, other (thin middle aged male with mildly increased respiratory effort at rest on MVS) Eyes: non-icteric ENT: oropharynx moist, other (S/P Tracheostomy) Neck: supple, no lymphadenopathy, no JVD Effort: mildly labored Ascultation: Bilateral: rhonchi Percussion: Bilateral: not dull Cardiovascular: regular rate and rhythm, other (S1,S2, no murmurs) Gastrointestinal: normoactive bowel sounds, soft, non-tender, non-distended, other Integumentary: normal, decubitus ulcer (sacral / gluteal) Extremities: no cyanosis, no edema, pulses normal, other (atrophic looking limbs) Neurologic: pupils equal and round, other (motor strength in extremities 1-2/5, awake, alert, mouths words to make needs known) Psychiatric: mood appropriate, affect normal CBC and BMP: 03/30/20 14:47 03/30/20 14:47 ABG, PT/INR, D-dimer: ABG ABG pH 7.371 (7.320-7.450) 03/08/20 12:34 POC ABG pCO2 63.1 mmHg (32.0-48.0) H 03/08/20 12:34 ABG pCO2 60.1 mm Hg 03/06/20 04:34 POC ABG pO2 90.5 mmHg (83-108) 03/08/20 12:34 ABG pO2 88.6 mm Hg (80.0-90.0) 03/06/20 04:34 POC ABG HCO3 35.7 03/08/20 12:34 ABG O2 Saturation 97.0 % (95.0-99.0) 03/06/20 04:34 PT/INR, D-dimer PT 15.6 Sec. (12.2-14.9) H 02/24/20 09:19 INR 1.21 (0.87-1.13) H 02/24/20 09:19 D-Dimer 1311.96 ng/mlDDU (0-234) H 02/24/20 09:19 Abnormal lab findings: Abnormal Labs 02/24/20 02/24/20 02/24/20 09:19 09:19 09:19 WBC 20.2 H RBC 5.05 H Hgb Hct MCV MCH RDW 15.3 H Plt Count Lymph % (Auto) Lymph # (Auto) Swain # (Auto) Seg Neutrophils % Seg Neuts % (Manual) 86.0 H Lymphocytes % (Manual) 1.0 L Monocytes % (Manual) Basophils % (Manual) Seg Neutrophils # Seg Neutrophils # Man 17.4 H Lymphocytes # (Manual) 0.2 L Monocytes # (Manual) Eosinophils # (Manual) Basophils # (Manual) PT 15.6 H INR 1.21 H D-Dimer 1311.96 H ABG pH POC ABG pCO2 POC ABG pO2 ABG pO2 ABG HCO3 ABG O2 Saturation ABG Base Excess ABG Hemoglobin ABG Oxyhemoglobin ABG Potassium ABG Glucose Oxyhemoglobin Carboxyhemoglobin Sodium 135 L Potassium 3.2 L Chloride 92.2 L Carbon Dioxide BUN 6 L Creatinine < 0.2 L Glucose 124 H POC Glucose Calcium Ferritin Total Bilirubin 2.30 H Alkaline Phosphatase 132 H Lactate Dehydrogenase Total Creatine Kinase CK-MB (CK-2) Rel Index Troponin T 0.080 H C-Reactive Protein Total Protein Albumin 3.6 L Prealbumin LDL Cholesterol Direct 41 L Arterial Blood Glucose Arterial Blood Ionized Calcium Urine WBC (Auto) 02/24/20 02/24/20 02/24/20 09:19 09:58 10:01 WBC RBC Hgb Hct MCV MCH RDW Plt Count Lymph % (Auto) Lymph # (Auto) Swain # (Auto) Seg Neutrophils % Seg Neuts % (Manual) Lymphocytes % (Manual) Monocytes % (Manual) Basophils % (Manual) Seg Neutrophils # Seg Neutrophils # Man Lymphocytes # (Manual) Monocytes # (Manual) Eosinophils # (Manual) Basophils # (Manual) PT INR D-Dimer ABG pH 7.176 L* POC ABG pCO2 POC ABG pO2 ABG pO2 91.2 H ABG HCO3 ABG O2 Saturation ABG Base Excess -4.6 L ABG Hemoglobin ABG Oxyhemoglobin ABG Potassium ABG Glucose Oxyhemoglobin 92.6 L Carboxyhemoglobin Sodium Potassium Chloride Carbon Dioxide BUN Creatinine Glucose POC Glucose Calcium Ferritin 1715.0 H Total Bilirubin Alkaline Phosphatase Lactate Dehydrogenase 303 H Total Creatine Kinase CK-MB (CK-2) Rel Index Troponin T C-Reactive Protein 26.10 H Total Protein Albumin Prealbumin LDL Cholesterol Direct Arterial Blood Glucose Arterial Blood Ionized Calcium Urine WBC (Auto) 02/24/20 02/24/20 02/24/20 11:52 13:45 19:35 WBC RBC Hgb Hct MCV MCH RDW Plt Count Lymph % (Auto) Lymph # (Auto) Swain # (Auto) Seg Neutrophils % Seg Neuts % (Manual) Lymphocytes % (Manual) Monocytes % (Manual) Basophils % (Manual) Seg Neutrophils # Seg Neutrophils # Man Lymphocytes # (Manual) Monocytes # (Manual) Eosinophils # (Manual) Basophils # (Manual) PT INR D-Dimer ABG pH 7.051 L* 7.300 L POC ABG pCO2 POC ABG pO2 ABG pO2 94.7 H 75.1 L ABG HCO3 18.0 L ABG O2 Saturation 93.5 L ABG Base Excess -6.8 L -7.8 L ABG Hemoglobin 13.2 L 11.9 L ABG Oxyhemoglobin ABG Potassium ABG Glucose Oxyhemoglobin 91.0 L 92.7 L Carboxyhemoglobin Sodium Potassium Chloride Carbon Dioxide BUN Creatinine Glucose POC Glucose Calcium Ferritin Total Bilirubin Alkaline Phosphatase Lactate Dehydrogenase Total Creatine Kinase CK-MB (CK-2) Rel Index Troponin T 0.034 H D C-Reactive Protein Total Protein Albumin Prealbumin LDL Cholesterol Direct Arterial Blood Glucose Arterial Blood Ionized Calcium Urine WBC (Auto) 02/25/20 02/25/20 02/25/20 04:00 04:00 12:26 WBC 22.9 H RBC Hgb Hct MCV 83 L MCH 27 L RDW Plt Count 468 H Lymph % (Auto) Lymph # (Auto) Swain # (Auto) Seg Neutrophils % Seg Neuts % (Manual) 89.0 H Lymphocytes % (Manual) 7.0 L Monocytes % (Manual) Basophils % (Manual) Seg Neutrophils # Seg Neutrophils # Man 20.4 H Lymphocytes # (Manual) Monocytes # (Manual) Eosinophils # (Manual) Basophils # (Manual) PT INR D-Dimer ABG pH POC ABG pCO2 POC ABG pO2 ABG pO2 ABG HCO3 ABG O2 Saturation ABG Base Excess ABG Hemoglobin ABG Oxyhemoglobin ABG Potassium 2.6 L ABG Glucose 142 H Oxyhemoglobin Carboxyhemoglobin Sodium Potassium 3.2 L Chloride Carbon Dioxide 18 L BUN Creatinine 0.2 L Glucose 114 H POC Glucose Calcium Ferritin Total Bilirubin Alkaline Phosphatase Lactate Dehydrogenase Total Creatine Kinase CK-MB (CK-2) Rel Index Troponin T C-Reactive Protein Total Protein Albumin 3.5 L Prealbumin LDL Cholesterol Direct Arterial Blood Glucose 142 H Arterial Blood Ionized Calcium Urine WBC (Auto) 02/26/20 02/26/20 02/26/20 15:58 17:00 23:43 WBC RBC Hgb Hct MCV MCH RDW Plt Count Lymph % (Auto) Lymph # (Auto) Swain # (Auto) Seg Neutrophils % Seg Neuts % (Manual) Lymphocytes % (Manual) Monocytes % (Manual) Basophils % (Manual) Seg Neutrophils # Seg Neutrophils # Man Lymphocytes # (Manual) Monocytes # (Manual) Eosinophils # (Manual) Basophils # (Manual) PT INR D-Dimer ABG pH 7.502 H POC ABG pCO2 POC ABG pO2 213.6 H ABG pO2 ABG HCO3 ABG O2 Saturation ABG Base Excess ABG Hemoglobin ABG Oxyhemoglobin 99.2 H ABG Potassium 2.9 L ABG Glucose 160 H Oxyhemoglobin Carboxyhemoglobin 0.4 L Sodium Potassium Chloride Carbon Dioxide BUN Creatinine Glucose POC Glucose 189 H 120 H Calcium Ferritin Total Bilirubin Alkaline Phosphatase Lactate Dehydrogenase Total Creatine Kinase CK-MB (CK-2) Rel Index Troponin T C-Reactive Protein Total Protein Albumin Prealbumin LDL Cholesterol Direct Arterial Blood Glucose 160 H Arterial Blood Ionized Calcium 4.5 L Urine WBC (Auto) 02/27/20 02/27/20 02/27/20 05:00 07:04 17:45 WBC RBC Hgb Hct MCV MCH RDW Plt Count Lymph % (Auto) Lymph # (Auto) Swain # (Auto) Seg Neutrophils % Seg Neuts % (Manual) Lymphocytes % (Manual) Monocytes % (Manual) Basophils % (Manual) Seg Neutrophils # Seg Neutrophils # Man Lymphocytes # (Manual) Monocytes # (Manual) Eosinophils # (Manual) Basophils # (Manual) PT INR D-Dimer ABG pH 7.524 H POC ABG pCO2 POC ABG pO2 ABG pO2 ABG HCO3 ABG O2 Saturation ABG Base Excess ABG Hemoglobin ABG Oxyhemoglobin ABG Potassium 3.0 L ABG Glucose 143 H Oxyhemoglobin Carboxyhemoglobin Sodium Potassium Chloride Carbon Dioxide BUN Creatinine Glucose POC Glucose 154 H 175 H Calcium Ferritin Total Bilirubin Alkaline Phosphatase Lactate Dehydrogenase Total Creatine Kinase CK-MB (CK-2) Rel Index Troponin T C-Reactive Protein Total Protein Albumin Prealbumin LDL Cholesterol Direct Arterial Blood Glucose 143 H Arterial Blood Ionized Calcium Urine WBC (Auto) 02/27/20 02/28/20 02/28/20 Unknown 00:21 04:15 WBC 18.7 H RBC Hgb Hct MCV MCH RDW Plt Count Lymph % (Auto) 8.7 L Lymph # (Auto) Swain # (Auto) 1.2 H Seg Neutrophils % 84.6 H Seg Neuts % (Manual) Lymphocytes % (Manual) Monocytes % (Manual) Basophils % (Manual) Seg Neutrophils # 15.9 H Seg Neutrophils # Man Lymphocytes # (Manual) Monocytes # (Manual) Eosinophils # (Manual) Basophils # (Manual) PT INR D-Dimer ABG pH POC ABG pCO2 POC ABG pO2 ABG pO2 ABG HCO3 ABG O2 Saturation ABG Base Excess ABG Hemoglobin ABG Oxyhemoglobin ABG Potassium ABG Glucose Oxyhemoglobin Carboxyhemoglobin Sodium Potassium 2.9 L* Chloride Carbon Dioxide 33 H D BUN Creatinine < 0.2 L Glucose 157 H POC Glucose 134 H Calcium Ferritin Total Bilirubin Alkaline Phosphatase Lactate Dehydrogenase Total Creatine Kinase CK-MB (CK-2) Rel Index Troponin T C-Reactive Protein Total Protein Albumin Prealbumin LDL Cholesterol Direct Arterial Blood Glucose Arterial Blood Ionized Calcium Urine WBC (Auto) 02/28/20 02/28/20 02/28/20 04:15 05:16 05:39 WBC RBC Hgb Hct MCV MCH RDW Plt Count Lymph % (Auto) Lymph # (Auto) Swain # (Auto) Seg Neutrophils % Seg Neuts % (Manual) Lymphocytes % (Manual) Monocytes % (Manual) Basophils % (Manual) Seg Neutrophils # Seg Neutrophils # Man Lymphocytes # (Manual) Monocytes # (Manual) Eosinophils # (Manual) Basophils # (Manual) PT INR D-Dimer ABG pH POC ABG pCO2 POC ABG pO2 ABG pO2 142.9 H ABG HCO3 34.1 H ABG O2 Saturation ABG Base Excess 8.3 H ABG Hemoglobin ABG Oxyhemoglobin ABG Potassium ABG Glucose Oxyhemoglobin Carboxyhemoglobin Sodium 151 H Potassium Chloride Carbon Dioxide 32 H BUN Creatinine 0.2 L Glucose 167 H POC Glucose 138 H Calcium Ferritin Total Bilirubin Alkaline Phosphatase Lactate Dehydrogenase Total Creatine Kinase CK-MB (CK-2) Rel Index Troponin T C-Reactive Protein Total Protein Albumin Prealbumin LDL Cholesterol Direct Arterial Blood Glucose Arterial Blood Ionized Calcium Urine WBC (Auto) 02/28/20 02/28/20 02/28/20 11:05 11:33 12:54 WBC RBC Hgb Hct MCV MCH RDW Plt Count Lymph % (Auto) Lymph # (Auto) Swain # (Auto) Seg Neutrophils % Seg Neuts % (Manual) Lymphocytes % (Manual) Monocytes % (Manual) Basophils % (Manual) Seg Neutrophils # Seg Neutrophils # Man Lymphocytes # (Manual) Monocytes # (Manual) Eosinophils # (Manual) Basophils # (Manual) PT INR D-Dimer ABG pH POC ABG pCO2 POC ABG pO2 ABG pO2 ABG HCO3 ABG O2 Saturation ABG Base Excess ABG Hemoglobin ABG Oxyhemoglobin ABG Potassium ABG Glucose Oxyhemoglobin Carboxyhemoglobin Sodium Potassium Chloride Carbon Dioxide BUN Creatinine Glucose POC Glucose 160 H Calcium Ferritin Total Bilirubin Alkaline Phosphatase Lactate Dehydrogenase Total Creatine Kinase CK-MB (CK-2) Rel Index Troponin T C-Reactive Protein 4.70 H Total Protein Albumin Prealbumin 0.090 L LDL Cholesterol Direct Arterial Blood Glucose Arterial Blood Ionized Calcium Urine WBC (Auto) 02/28/20 02/29/20 02/29/20 17:34 00:44 04:05 WBC 19.6 H RBC Hgb Hct MCV MCH 27 L RDW 15.4 H Plt Count Lymph % (Auto) Lymph # (Auto) Swain # (Auto) Seg Neutrophils % Seg Neuts % (Manual) 86.0 H Lymphocytes % (Manual) 7.0 L Monocytes % (Manual) Basophils % (Manual) Seg Neutrophils # Seg Neutrophils # Man 16.9 H Lymphocytes # (Manual) Monocytes # (Manual) 1.2 H Eosinophils # (Manual) Basophils # (Manual) PT INR D-Dimer ABG pH POC ABG pCO2 POC ABG pO2 ABG pO2 ABG HCO3 ABG O2 Saturation ABG Base Excess ABG Hemoglobin ABG Oxyhemoglobin ABG Potassium ABG Glucose Oxyhemoglobin Carboxyhemoglobin Sodium Potassium Chloride Carbon Dioxide BUN Creatinine Glucose POC Glucose 136 H 156 H Calcium Ferritin Total Bilirubin Alkaline Phosphatase Lactate Dehydrogenase Total Creatine Kinase CK-MB (CK-2) Rel Index Troponin T C-Reactive Protein Total Protein Albumin Prealbumin LDL Cholesterol Direct Arterial Blood Glucose Arterial Blood Ionized Calcium Urine WBC (Auto) 02/29/20 02/29/20 02/29/20 04:05 05:14 05:33 WBC RBC Hgb Hct MCV MCH RDW Plt Count Lymph % (Auto) Lymph # (Auto) Swain # (Auto) Seg Neutrophils % Seg Neuts % (Manual) Lymphocytes % (Manual) Monocytes % (Manual) Basophils % (Manual) Seg Neutrophils # Seg Neutrophils # Man Lymphocytes # (Manual) Monocytes # (Manual) Eosinophils # (Manual) Basophils # (Manual) PT INR D-Dimer ABG pH POC ABG pCO2 54.3 H POC ABG pO2 124.8 H ABG pO2 ABG HCO3 ABG O2 Saturation ABG Base Excess ABG Hemoglobin ABG Oxyhemoglobin ABG Potassium ABG Glucose 185 H Oxyhemoglobin Carboxyhemoglobin Sodium 148 H Potassium Chloride Carbon Dioxide 33 H BUN Creatinine < 0.2 L Glucose 173 H POC Glucose 152 H Calcium Ferritin Total Bilirubin Alkaline Phosphatase Lactate Dehydrogenase Total Creatine Kinase CK-MB (CK-2) Rel Index Troponin T C-Reactive Protein Total Protein Albumin Prealbumin LDL Cholesterol Direct Arterial Blood Glucose 185 H Arterial Blood Ionized Calcium Urine WBC (Auto) 03/01/20 03/01/20 03/01/20 00:00 03:45 04:33 WBC 23.1 H RBC Hgb Hct MCV MCH 27 L RDW 15.3 H Plt Count Lymph % (Auto) Lymph # (Auto) Swain # (Auto) Seg Neutrophils % Seg Neuts % (Manual) 92.0 H Lymphocytes % (Manual) 6.0 L Monocytes % (Manual) Basophils % (Manual) Seg Neutrophils # Seg Neutrophils # Man 21.3 H Lymphocytes # (Manual) Monocytes # (Manual) Eosinophils # (Manual) 0.5 H Basophils # (Manual) PT INR D-Dimer ABG pH 7.492 H POC ABG pCO2 POC ABG pO2 ABG pO2 157.1 H ABG HCO3 32.3 H ABG O2 Saturation ABG Base Excess 8.1 H ABG Hemoglobin 13.2 L ABG Oxyhemoglobin ABG Potassium ABG Glucose Oxyhemoglobin Carboxyhemoglobin Sodium Potassium Chloride Carbon Dioxide BUN Creatinine Glucose POC Glucose 109 H Calcium Ferritin Total Bilirubin Alkaline Phosphatase Lactate Dehydrogenase Total Creatine Kinase CK-MB (CK-2) Rel Index Troponin T C-Reactive Protein Total Protein Albumin Prealbumin LDL Cholesterol Direct Arterial Blood Glucose Arterial Blood Ionized Calcium Urine WBC (Auto) 03/01/20 03/01/20 03/01/20 04:33 05:29 12:32 WBC RBC Hgb Hct MCV MCH RDW Plt Count Lymph % (Auto) Lymph # (Auto) Swain # (Auto) Seg Neutrophils % Seg Neuts % (Manual) Lymphocytes % (Manual) Monocytes % (Manual) Basophils % (Manual) Seg Neutrophils # Seg Neutrophils # Man Lymphocytes # (Manual) Monocytes # (Manual) Eosinophils # (Manual) Basophils # (Manual) PT INR D-Dimer ABG pH POC ABG pCO2 POC ABG pO2 ABG pO2 ABG HCO3 ABG O2 Saturation ABG Base Excess ABG Hemoglobin ABG Oxyhemoglobin ABG Potassium ABG Glucose Oxyhemoglobin Carboxyhemoglobin Sodium 146 H Potassium Chloride Carbon Dioxide 32 H BUN Creatinine < 0.2 L Glucose 120 H POC Glucose 120 H 128 H Calcium Ferritin Total Bilirubin Alkaline Phosphatase Lactate Dehydrogenase Total Creatine Kinase CK-MB (CK-2) Rel Index Troponin T C-Reactive Protein Total Protein Albumin Prealbumin LDL Cholesterol Direct Arterial Blood Glucose Arterial Blood Ionized Calcium Urine WBC (Auto) 03/01/20 03/01/20 03/02/20 17:38 23:46 06:13 WBC RBC Hgb Hct MCV MCH RDW Plt Count Lymph % (Auto) Lymph # (Auto) Swain # (Auto) Seg Neutrophils % Seg Neuts % (Manual) Lymphocytes % (Manual) Monocytes % (Manual) Basophils % (Manual) Seg Neutrophils # Seg Neutrophils # Man Lymphocytes # (Manual) Monocytes # (Manual) Eosinophils # (Manual) Basophils # (Manual) PT INR D-Dimer ABG pH POC ABG pCO2 POC ABG pO2 ABG pO2 ABG HCO3 ABG O2 Saturation ABG Base Excess ABG Hemoglobin ABG Oxyhemoglobin ABG Potassium ABG Glucose Oxyhemoglobin Carboxyhemoglobin Sodium Potassium Chloride Carbon Dioxide BUN Creatinine Glucose POC Glucose 114 H 121 H 120 H Calcium Ferritin Total Bilirubin Alkaline Phosphatase Lactate Dehydrogenase Total Creatine Kinase CK-MB (CK-2) Rel Index Troponin T C-Reactive Protein Total Protein Albumin Prealbumin LDL Cholesterol Direct Arterial Blood Glucose Arterial Blood Ionized Calcium Urine WBC (Auto) 03/02/20 03/02/20 03/03/20 09:47 09:47 10:21 WBC 23.6 H RBC Hgb Hct MCV MCH RDW 15.3 H Plt Count 494 H Lymph % (Auto) Lymph # (Auto) Swain # (Auto) Seg Neutrophils % Seg Neuts % (Manual) 85.0 H Lymphocytes % (Manual) 6.0 L Monocytes % (Manual) Basophils % (Manual) Seg Neutrophils # Seg Neutrophils # Man 20.1 H Lymphocytes # (Manual) Monocytes # (Manual) 1.7 H Eosinophils # (Manual) Basophils # (Manual) PT INR D-Dimer ABG pH POC ABG pCO2 POC ABG pO2 ABG pO2 ABG HCO3 ABG O2 Saturation ABG Base Excess ABG Hemoglobin ABG Oxyhemoglobin ABG Potassium 3.3 L ABG Glucose 158 H Oxyhemoglobin Carboxyhemoglobin Sodium Potassium Chloride Carbon Dioxide BUN Creatinine < 0.2 L Glucose 177 H POC Glucose Calcium Ferritin Total Bilirubin Alkaline Phosphatase Lactate Dehydrogenase Total Creatine Kinase CK-MB (CK-2) Rel Index Troponin T C-Reactive Protein Total Protein Albumin Prealbumin LDL Cholesterol Direct Arterial Blood Glucose 158 H Arterial Blood Ionized Calcium Urine WBC (Auto) 03/03/20 03/04/20 03/04/20 21:30 00:00 12:23 WBC RBC Hgb Hct MCV MCH RDW Plt Count Lymph % (Auto) Lymph # (Auto) Swain # (Auto) Seg Neutrophils % Seg Neuts % (Manual) Lymphocytes % (Manual) Monocytes % (Manual) Basophils % (Manual) Seg Neutrophils # Seg Neutrophils # Man Lymphocytes # (Manual) Monocytes # (Manual) Eosinophils # (Manual) Basophils # (Manual) PT INR D-Dimer ABG pH 7.328 L POC ABG pCO2 POC ABG pO2 ABG pO2 68.4 L ABG HCO3 35.0 H ABG O2 Saturation 93.9 L ABG Base Excess 6.8 H ABG Hemoglobin 12.7 L ABG Oxyhemoglobin ABG Potassium ABG Glucose Oxyhemoglobin 91.9 L Carboxyhemoglobin Sodium Potassium Chloride Carbon Dioxide BUN Creatinine Glucose POC Glucose 187 H 163 H Calcium Ferritin Total Bilirubin Alkaline Phosphatase Lactate Dehydrogenase Total Creatine Kinase CK-MB (CK-2) Rel Index Troponin T C-Reactive Protein Total Protein Albumin Prealbumin LDL Cholesterol Direct Arterial Blood Glucose Arterial Blood Ionized Calcium Urine WBC (Auto) 03/04/20 03/04/20 03/05/20 18:15 21:30 06:02 WBC RBC Hgb Hct MCV MCH RDW Plt Count Lymph % (Auto) Lymph # (Auto) Swain # (Auto) Seg Neutrophils % Seg Neuts % (Manual) Lymphocytes % (Manual) Monocytes % (Manual) Basophils % (Manual) Seg Neutrophils # Seg Neutrophils # Man Lymphocytes # (Manual) Monocytes # (Manual) Eosinophils # (Manual) Basophils # (Manual) PT INR D-Dimer ABG pH 7.297 L POC ABG pCO2 POC ABG pO2 ABG pO2 ABG HCO3 41.0 H ABG O2 Saturation ABG Base Excess 11.0 H ABG Hemoglobin 13.1 L ABG Oxyhemoglobin ABG Potassium ABG Glucose Oxyhemoglobin 94.5 L Carboxyhemoglobin Sodium Potassium Chloride Carbon Dioxide BUN Creatinine Glucose POC Glucose 192 H 127 H Calcium Ferritin Total Bilirubin Alkaline Phosphatase Lactate Dehydrogenase Total Creatine Kinase CK-MB (CK-2) Rel Index Troponin T C-Reactive Protein Total Protein Albumin Prealbumin LDL Cholesterol Direct Arterial Blood Glucose Arterial Blood Ionized Calcium Urine WBC (Auto) 03/05/20 03/05/20 03/06/20 12:09 16:42 00:24 WBC RBC Hgb Hct MCV MCH RDW Plt Count Lymph % (Auto) Lymph # (Auto) Swain # (Auto) Seg Neutrophils % Seg Neuts % (Manual) Lymphocytes % (Manual) Monocytes % (Manual) Basophils % (Manual) Seg Neutrophils # Seg Neutrophils # Man Lymphocytes # (Manual) Monocytes # (Manual) Eosinophils # (Manual) Basophils # (Manual) PT INR D-Dimer ABG pH POC ABG pCO2 POC ABG pO2 ABG pO2 ABG HCO3 ABG O2 Saturation ABG Base Excess ABG Hemoglobin ABG Oxyhemoglobin ABG Potassium ABG Glucose Oxyhemoglobin Carboxyhemoglobin Sodium Potassium Chloride Carbon Dioxide BUN Creatinine Glucose POC Glucose 147 H 114 H 134 H Calcium Ferritin Total Bilirubin Alkaline Phosphatase Lactate Dehydrogenase Total Creatine Kinase CK-MB (CK-2) Rel Index Troponin T C-Reactive Protein Total Protein Albumin Prealbumin LDL Cholesterol Direct Arterial Blood Glucose Arterial Blood Ionized Calcium Urine WBC (Auto) 03/06/20 03/06/20 03/06/20 04:34 05:53 06:08 WBC 25.4 H RBC Hgb 10.5 L Hct 32.7 L MCV MCH 27 L RDW 15.3 H Plt Count 634 H Lymph % (Auto) Lymph # (Auto) Swain # (Auto) Seg Neutrophils % Seg Neuts % (Manual) 88.0 H Lymphocytes % (Manual) 2.0 L Monocytes % (Manual) 8.0 H Basophils % (Manual) Seg Neutrophils # Seg Neutrophils # Man 22.4 H Lymphocytes # (Manual) 0.5 L Monocytes # (Manual) 2.0 H Eosinophils # (Manual) Basophils # (Manual) PT INR D-Dimer ABG pH POC ABG pCO2 POC ABG pO2 ABG pO2 ABG HCO3 37.9 H ABG O2 Saturation ABG Base Excess 11.4 H ABG Hemoglobin 10.6 L ABG Oxyhemoglobin ABG Potassium ABG Glucose Oxyhemoglobin 94.7 L Carboxyhemoglobin Sodium Potassium Chloride Carbon Dioxide BUN Creatinine Glucose POC Glucose 135 H Calcium Ferritin Total Bilirubin Alkaline Phosphatase Lactate Dehydrogenase Total Creatine Kinase CK-MB (CK-2) Rel Index Troponin T C-Reactive Protein Total Protein Albumin Prealbumin LDL Cholesterol Direct Arterial Blood Glucose Arterial Blood Ionized Calcium Urine WBC (Auto) 03/06/20 03/06/20 03/06/20 06:08 12:19 19:10 WBC RBC Hgb Hct MCV MCH RDW Plt Count Lymph % (Auto) Lymph # (Auto) Swain # (Auto) Seg Neutrophils % Seg Neuts % (Manual) Lymphocytes % (Manual) Monocytes % (Manual) Basophils % (Manual) Seg Neutrophils # Seg Neutrophils # Man Lymphocytes # (Manual) Monocytes # (Manual) Eosinophils # (Manual) Basophils # (Manual) PT INR D-Dimer ABG pH POC ABG pCO2 POC ABG pO2 ABG pO2 ABG HCO3 ABG O2 Saturation ABG Base Excess ABG Hemoglobin ABG Oxyhemoglobin ABG Potassium ABG Glucose Oxyhemoglobin Carboxyhemoglobin Sodium 150 H D Potassium Chloride Carbon Dioxide 39 H D BUN 23 H Creatinine < 0.2 L Glucose 144 H POC Glucose 169 H 152 H Calcium Ferritin Total Bilirubin Alkaline Phosphatase Lactate Dehydrogenase Total Creatine Kinase CK-MB (CK-2) Rel Index Troponin T C-Reactive Protein Total Protein Albumin 3.3 L Prealbumin LDL Cholesterol Direct Arterial Blood Glucose Arterial Blood Ionized Calcium Urine WBC (Auto) 03/06/20 03/07/20 03/07/20 23:58 04:25 04:25 WBC 22.1 H RBC Hgb 10.9 L Hct 32.9 L MCV MCH RDW 15.5 H Plt Count 739 H Lymph % (Auto) 7.8 L Lymph # (Auto) Swain # (Auto) 1.3 H Seg Neutrophils % 85.5 H Seg Neuts % (Manual) Lymphocytes % (Manual) Monocytes % (Manual) Basophils % (Manual) Seg Neutrophils # 18.9 H Seg Neutrophils # Man Lymphocytes # (Manual) Monocytes # (Manual) Eosinophils # (Manual) Basophils # (Manual) PT INR D-Dimer ABG pH POC ABG pCO2 POC ABG pO2 ABG pO2 ABG HCO3 ABG O2 Saturation ABG Base Excess ABG Hemoglobin ABG Oxyhemoglobin ABG Potassium ABG Glucose Oxyhemoglobin Carboxyhemoglobin Sodium 146 H Potassium Chloride Carbon Dioxide 37 H BUN Creatinine < 0.2 L Glucose 118 H POC Glucose 111 H Calcium Ferritin Total Bilirubin Alkaline Phosphatase Lactate Dehydrogenase Total Creatine Kinase CK-MB (CK-2) Rel Index Troponin T C-Reactive Protein Total Protein Albumin 3.7 L Prealbumin LDL Cholesterol Direct Arterial Blood Glucose Arterial Blood Ionized Calcium Urine WBC (Auto) 03/07/20 03/07/20 03/07/20 05:20 17:45 23:32 WBC RBC Hgb Hct MCV MCH RDW Plt Count Lymph % (Auto) Lymph # (Auto) Swain # (Auto) Seg Neutrophils % Seg Neuts % (Manual) Lymphocytes % (Manual) Monocytes % (Manual) Basophils % (Manual) Seg Neutrophils # Seg Neutrophils # Man Lymphocytes # (Manual) Monocytes # (Manual) Eosinophils # (Manual) Basophils # (Manual) PT INR D-Dimer ABG pH POC ABG pCO2 POC ABG pO2 ABG pO2 ABG HCO3 ABG O2 Saturation ABG Base Excess ABG Hemoglobin ABG Oxyhemoglobin ABG Potassium ABG Glucose Oxyhemoglobin Carboxyhemoglobin Sodium Potassium Chloride Carbon Dioxide BUN Creatinine Glucose POC Glucose 113 H 124 H 210 H Calcium Ferritin Total Bilirubin Alkaline Phosphatase Lactate Dehydrogenase Total Creatine Kinase CK-MB (CK-2) Rel Index Troponin T C-Reactive Protein Total Protein Albumin Prealbumin LDL Cholesterol Direct Arterial Blood Glucose Arterial Blood Ionized Calcium Urine WBC (Auto) 03/08/20 03/08/20 03/08/20 05:35 06:43 06:43 WBC 28.9 H RBC 3.53 L Hgb 9.7 L Hct 30.3 L MCV MCH RDW 15.6 H Plt Count 578 H Lymph % (Auto) Lymph # (Auto) Swain # (Auto) Seg Neutrophils % Seg Neuts % (Manual) 93.0 H Lymphocytes % (Manual) 4.0 L Monocytes % (Manual) Basophils % (Manual) Seg Neutrophils # Seg Neutrophils # Man 26.9 H Lymphocytes # (Manual) Monocytes # (Manual) Eosinophils # (Manual) Basophils # (Manual) PT INR D-Dimer ABG pH POC ABG pCO2 POC ABG pO2 ABG pO2 ABG HCO3 ABG O2 Saturation ABG Base Excess ABG Hemoglobin ABG Oxyhemoglobin ABG Potassium ABG Glucose Oxyhemoglobin Carboxyhemoglobin Sodium 146 H Potassium Chloride Carbon Dioxide 35 H BUN 34 H Creatinine 0.3 L D Glucose 125 H POC Glucose 147 H Calcium Ferritin Total Bilirubin Alkaline Phosphatase Lactate Dehydrogenase Total Creatine Kinase CK-MB (CK-2) Rel Index Troponin T C-Reactive Protein Total Protein 5.9 L Albumin 3.2 L Prealbumin LDL Cholesterol Direct Arterial Blood Glucose Arterial Blood Ionized Calcium Urine WBC (Auto) 03/08/20 03/08/20 03/08/20 08:57 11:14 12:34 WBC RBC Hgb Hct MCV MCH RDW Plt Count Lymph % (Auto) Lymph # (Auto) Swain # (Auto) Seg Neutrophils % Seg Neuts % (Manual) Lymphocytes % (Manual) Monocytes % (Manual) Basophils % (Manual) Seg Neutrophils # Seg Neutrophils # Man Lymphocytes # (Manual) Monocytes # (Manual) Eosinophils # (Manual) Basophils # (Manual) PT INR D-Dimer ABG pH POC ABG pCO2 63.1 H POC ABG pO2 ABG pO2 ABG HCO3 ABG O2 Saturation ABG Base Excess ABG Hemoglobin 10.9 L ABG Oxyhemoglobin ABG Potassium ABG Glucose 176 H Oxyhemoglobin Carboxyhemoglobin Sodium Potassium Chloride Carbon Dioxide BUN Creatinine Glucose POC Glucose 171 H Calcium Ferritin Total Bilirubin Alkaline Phosphatase Lactate Dehydrogenase Total Creatine Kinase CK-MB (CK-2) Rel Index Troponin T C-Reactive Protein Total Protein Albumin Prealbumin LDL Cholesterol Direct Arterial Blood Glucose 176 H Arterial Blood Ionized Calcium 4.5 L Urine WBC (Auto) 10.0 H 03/08/20 03/08/20 03/09/20 18:02 23:43 05:49 WBC RBC Hgb Hct MCV MCH RDW Plt Count Lymph % (Auto) Lymph # (Auto) Swain # (Auto) Seg Neutrophils % Seg Neuts % (Manual) Lymphocytes % (Manual) Monocytes % (Manual) Basophils % (Manual) Seg Neutrophils # Seg Neutrophils # Man Lymphocytes # (Manual) Monocytes # (Manual) Eosinophils # (Manual) Basophils # (Manual) PT INR D-Dimer ABG pH POC ABG pCO2 POC ABG pO2 ABG pO2 ABG HCO3 ABG O2 Saturation ABG Base Excess ABG Hemoglobin ABG Oxyhemoglobin ABG Potassium ABG Glucose Oxyhemoglobin Carboxyhemoglobin Sodium Potassium Chloride Carbon Dioxide BUN Creatinine Glucose POC Glucose 157 H 134 H 163 H Calcium Ferritin Total Bilirubin Alkaline Phosphatase Lactate Dehydrogenase Total Creatine Kinase CK-MB (CK-2) Rel Index Troponin T C-Reactive Protein Total Protein Albumin Prealbumin LDL Cholesterol Direct Arterial Blood Glucose Arterial Blood Ionized Calcium Urine WBC (Auto) 03/09/20 03/09/20 03/09/20 08:35 08:35 12:11 WBC 23.4 H RBC 3.36 L Hgb 9.3 L Hct 28.8 L MCV MCH RDW 15.9 H Plt Count 521 H Lymph % (Auto) Lymph # (Auto) Swain # (Auto) Seg Neutrophils % Seg Neuts % (Manual) 87.0 H Lymphocytes % (Manual) 4.0 L Monocytes % (Manual) 9.0 H Basophils % (Manual) Seg Neutrophils # Seg Neutrophils # Man 20.4 H Lymphocytes # (Manual) 0.9 L Monocytes # (Manual) 2.1 H Eosinophils # (Manual) Basophils # (Manual) PT INR D-Dimer ABG pH POC ABG pCO2 POC ABG pO2 ABG pO2 ABG HCO3 ABG O2 Saturation ABG Base Excess ABG Hemoglobin ABG Oxyhemoglobin ABG Potassium ABG Glucose Oxyhemoglobin Carboxyhemoglobin Sodium 147 H Potassium Chloride Carbon Dioxide 37 H BUN 63 H Creatinine Glucose 154 H POC Glucose 128 H Calcium Ferritin Total Bilirubin Alkaline Phosphatase Lactate Dehydrogenase Total Creatine Kinase CK-MB (CK-2) Rel Index Troponin T C-Reactive Protein Total Protein Albumin Prealbumin LDL Cholesterol Direct Arterial Blood Glucose Arterial Blood Ionized Calcium Urine WBC (Auto) 03/09/20 03/10/20 03/10/20 17:51 00:25 05:41 WBC RBC Hgb Hct MCV MCH RDW Plt Count Lymph % (Auto) Lymph # (Auto) Swain # (Auto) Seg Neutrophils % Seg Neuts % (Manual) Lymphocytes % (Manual) Monocytes % (Manual) Basophils % (Manual) Seg Neutrophils # Seg Neutrophils # Man Lymphocytes # (Manual) Monocytes # (Manual) Eosinophils # (Manual) Basophils # (Manual) PT INR D-Dimer ABG pH POC ABG pCO2 POC ABG pO2 ABG pO2 ABG HCO3 ABG O2 Saturation ABG Base Excess ABG Hemoglobin ABG Oxyhemoglobin ABG Potassium ABG Glucose Oxyhemoglobin Carboxyhemoglobin Sodium Potassium Chloride Carbon Dioxide BUN Creatinine Glucose POC Glucose 127 H 128 H 153 H Calcium Ferritin Total Bilirubin Alkaline Phosphatase Lactate Dehydrogenase Total Creatine Kinase CK-MB (CK-2) Rel Index Troponin T C-Reactive Protein Total Protein Albumin Prealbumin LDL Cholesterol Direct Arterial Blood Glucose Arterial Blood Ionized Calcium Urine WBC (Auto) 03/10/20 03/10/20 03/10/20 06:14 06:14 12:02 WBC 18.3 H RBC 3.45 L Hgb 9.5 L Hct 29.5 L MCV MCH RDW 16.1 H Plt Count 494 H Lymph % (Auto) Lymph # (Auto) Swain # (Auto) Seg Neutrophils % Seg Neuts % (Manual) 95.0 H Lymphocytes % (Manual) 1.0 L Monocytes % (Manual) Basophils % (Manual) Seg Neutrophils # Seg Neutrophils # Man 17.4 H Lymphocytes # (Manual) 0.2 L Monocytes # (Manual) Eosinophils # (Manual) Basophils # (Manual) PT INR D-Dimer ABG pH POC ABG pCO2 POC ABG pO2 ABG pO2 ABG HCO3 ABG O2 Saturation ABG Base Excess ABG Hemoglobin ABG Oxyhemoglobin ABG Potassium ABG Glucose Oxyhemoglobin Carboxyhemoglobin Sodium 149 H Potassium Chloride Carbon Dioxide 35 H BUN 34 H Creatinine 0.2 L D Glucose 177 H POC Glucose 151 H Calcium Ferritin Total Bilirubin Alkaline Phosphatase Lactate Dehydrogenase Total Creatine Kinase CK-MB (CK-2) Rel Index Troponin T C-Reactive Protein Total Protein Albumin Prealbumin LDL Cholesterol Direct Arterial Blood Glucose Arterial Blood Ionized Calcium Urine WBC (Auto) 03/10/20 03/10/20 03/11/20 17:41 23:53 05:02 WBC RBC Hgb Hct MCV MCH RDW Plt Count Lymph % (Auto) Lymph # (Auto) Swain # (Auto) Seg Neutrophils % Seg Neuts % (Manual) Lymphocytes % (Manual) Monocytes % (Manual) Basophils % (Manual) Seg Neutrophils # Seg Neutrophils # Man Lymphocytes # (Manual) Monocytes # (Manual) Eosinophils # (Manual) Basophils # (Manual) PT INR D-Dimer ABG pH POC ABG pCO2 POC ABG pO2 ABG pO2 ABG HCO3 ABG O2 Saturation ABG Base Excess ABG Hemoglobin ABG Oxyhemoglobin ABG Potassium ABG Glucose Oxyhemoglobin Carboxyhemoglobin Sodium Potassium Chloride Carbon Dioxide BUN Creatinine Glucose POC Glucose 168 H 142 H 146 H Calcium Ferritin Total Bilirubin Alkaline Phosphatase Lactate Dehydrogenase Total Creatine Kinase CK-MB (CK-2) Rel Index Troponin T C-Reactive Protein Total Protein Albumin Prealbumin LDL Cholesterol Direct Arterial Blood Glucose Arterial Blood Ionized Calcium Urine WBC (Auto) 03/11/20 03/11/20 03/11/20 11:30 14:01 14:01 WBC 19.7 H RBC 3.04 L Hgb 8.7 L Hct 25.8 L MCV MCH RDW 15.6 H Plt Count Lymph % (Auto) Lymph # (Auto) Swain # (Auto) Seg Neutrophils % Seg Neuts % (Manual) Lymphocytes % (Manual) Monocytes % (Manual) Basophils % (Manual) Seg Neutrophils # Seg Neutrophils # Man Lymphocytes # (Manual) Monocytes # (Manual) Eosinophils # (Manual) Basophils # (Manual) PT INR D-Dimer ABG pH POC ABG pCO2 POC ABG pO2 ABG pO2 ABG HCO3 ABG O2 Saturation ABG Base Excess ABG Hemoglobin ABG Oxyhemoglobin ABG Potassium ABG Glucose Oxyhemoglobin Carboxyhemoglobin Sodium 151 H Potassium Chloride Carbon Dioxide 37 H BUN Creatinine < 0.2 L Glucose 171 H POC Glucose 248 H Calcium Ferritin Total Bilirubin Alkaline Phosphatase Lactate Dehydrogenase Total Creatine Kinase CK-MB (CK-2) Rel Index Troponin T C-Reactive Protein Total Protein Albumin Prealbumin LDL Cholesterol Direct Arterial Blood Glucose Arterial Blood Ionized Calcium Urine WBC (Auto) 03/11/20 03/11/20 03/12/20 17:09 23:52 04:39 WBC 19.9 H RBC 3.16 L Hgb 8.9 L Hct 27.5 L MCV MCH RDW 15.7 H Plt Count Lymph % (Auto) 6.8 L Lymph # (Auto) Swain # (Auto) 1.2 H Seg Neutrophils % 86.0 H Seg Neuts % (Manual) Lymphocytes % (Manual) Monocytes % (Manual) Basophils % (Manual) Seg Neutrophils # 17.1 H Seg Neutrophils # Man Lymphocytes # (Manual) Monocytes # (Manual) Eosinophils # (Manual) Basophils # (Manual) PT INR D-Dimer ABG pH POC ABG pCO2 POC ABG pO2 ABG pO2 ABG HCO3 ABG O2 Saturation ABG Base Excess ABG Hemoglobin ABG Oxyhemoglobin ABG Potassium ABG Glucose Oxyhemoglobin Carboxyhemoglobin Sodium Potassium Chloride Carbon Dioxide BUN Creatinine Glucose POC Glucose 124 H 131 H Calcium Ferritin Total Bilirubin Alkaline Phosphatase Lactate Dehydrogenase Total Creatine Kinase CK-MB (CK-2) Rel Index Troponin T C-Reactive Protein Total Protein Albumin Prealbumin LDL Cholesterol Direct Arterial Blood Glucose Arterial Blood Ionized Calcium Urine WBC (Auto) 03/12/20 03/12/20 03/12/20 04:39 05:28 11:34 WBC RBC Hgb Hct MCV MCH RDW Plt Count Lymph % (Auto) Lymph # (Auto) Swain # (Auto) Seg Neutrophils % Seg Neuts % (Manual) Lymphocytes % (Manual) Monocytes % (Manual) Basophils % (Manual) Seg Neutrophils # Seg Neutrophils # Man Lymphocytes # (Manual) Monocytes # (Manual) Eosinophils # (Manual) Basophils # (Manual) PT INR D-Dimer ABG pH POC ABG pCO2 POC ABG pO2 ABG pO2 ABG HCO3 ABG O2 Saturation ABG Base Excess ABG Hemoglobin ABG Oxyhemoglobin ABG Potassium ABG Glucose Oxyhemoglobin Carboxyhemoglobin Sodium 147 H Potassium Chloride Carbon Dioxide 40 H BUN Creatinine < 0.2 L Glucose 175 H POC Glucose 167 H 144 H Calcium Ferritin Total Bilirubin Alkaline Phosphatase Lactate Dehydrogenase Total Creatine Kinase CK-MB (CK-2) Rel Index Troponin T C-Reactive Protein Total Protein Albumin Prealbumin LDL Cholesterol Direct Arterial Blood Glucose Arterial Blood Ionized Calcium Urine WBC (Auto) 03/12/20 03/12/20 03/13/20 17:32 23:57 05:57 WBC RBC Hgb Hct MCV MCH RDW Plt Count Lymph % (Auto) Lymph # (Auto) Swain # (Auto) Seg Neutrophils % Seg Neuts % (Manual) Lymphocytes % (Manual) Monocytes % (Manual) Basophils % (Manual) Seg Neutrophils # Seg Neutrophils # Man Lymphocytes # (Manual) Monocytes # (Manual) Eosinophils # (Manual) Basophils # (Manual) PT INR D-Dimer ABG pH POC ABG pCO2 POC ABG pO2 ABG pO2 ABG HCO3 ABG O2 Saturation ABG Base Excess ABG Hemoglobin ABG Oxyhemoglobin ABG Potassium ABG Glucose Oxyhemoglobin Carboxyhemoglobin Sodium Potassium Chloride Carbon Dioxide BUN Creatinine Glucose POC Glucose 141 H 137 H 161 H Calcium Ferritin Total Bilirubin Alkaline Phosphatase Lactate Dehydrogenase Total Creatine Kinase CK-MB (CK-2) Rel Index Troponin T C-Reactive Protein Total Protein Albumin Prealbumin LDL Cholesterol Direct Arterial Blood Glucose Arterial Blood Ionized Calcium Urine WBC (Auto) 03/13/20 03/13/20 03/13/20 12:28 14:14 18:39 WBC RBC Hgb Hct MCV MCH RDW Plt Count Lymph % (Auto) Lymph # (Auto) Swain # (Auto) Seg Neutrophils % Seg Neuts % (Manual) Lymphocytes % (Manual) Monocytes % (Manual) Basophils % (Manual) Seg Neutrophils # Seg Neutrophils # Man Lymphocytes # (Manual) Monocytes # (Manual) Eosinophils # (Manual) Basophils # (Manual) PT INR D-Dimer ABG pH POC ABG pCO2 POC ABG pO2 ABG pO2 ABG HCO3 ABG O2 Saturation ABG Base Excess ABG Hemoglobin ABG Oxyhemoglobin ABG Potassium ABG Glucose Oxyhemoglobin Carboxyhemoglobin Sodium Potassium Chloride Carbon Dioxide 39 H BUN Creatinine < 0.2 L Glucose 129 H POC Glucose 130 H 125 H Calcium Ferritin Total Bilirubin Alkaline Phosphatase Lactate Dehydrogenase Total Creatine Kinase CK-MB (CK-2) Rel Index Troponin T C-Reactive Protein Total Protein Albumin Prealbumin LDL Cholesterol Direct Arterial Blood Glucose Arterial Blood Ionized Calcium Urine WBC (Auto) 03/13/20 03/14/20 03/14/20 23:33 05:24 08:07 WBC 16.8 H RBC 2.81 L Hgb 7.9 L Hct 23.9 L MCV MCH RDW 15.9 H Plt Count Lymph % (Auto) Lymph # (Auto) Swain # (Auto) Seg Neutrophils % Seg Neuts % (Manual) 84.0 H Lymphocytes % (Manual) 10.0 L Monocytes % (Manual) Basophils % (Manual) Seg Neutrophils # Seg Neutrophils # Man 14.1 H Lymphocytes # (Manual) Monocytes # (Manual) Eosinophils # (Manual) Basophils # (Manual) PT INR D-Dimer ABG pH POC ABG pCO2 POC ABG pO2 ABG pO2 ABG HCO3 ABG O2 Saturation ABG Base Excess ABG Hemoglobin ABG Oxyhemoglobin ABG Potassium ABG Glucose Oxyhemoglobin Carboxyhemoglobin Sodium Potassium Chloride Carbon Dioxide BUN Creatinine Glucose POC Glucose 146 H 125 H Calcium Ferritin Total Bilirubin Alkaline Phosphatase Lactate Dehydrogenase Total Creatine Kinase CK-MB (CK-2) Rel Index Troponin T C-Reactive Protein Total Protein Albumin Prealbumin LDL Cholesterol Direct Arterial Blood Glucose Arterial Blood Ionized Calcium Urine WBC (Auto) 03/14/20 03/14/20 03/14/20 08:07 12:21 18:26 WBC RBC Hgb Hct MCV MCH RDW Plt Count Lymph % (Auto) Lymph # (Auto) Swain # (Auto) Seg Neutrophils % Seg Neuts % (Manual) Lymphocytes % (Manual) Monocytes % (Manual) Basophils % (Manual) Seg Neutrophils # Seg Neutrophils # Man Lymphocytes # (Manual) Monocytes # (Manual) Eosinophils # (Manual) Basophils # (Manual) PT INR D-Dimer ABG pH POC ABG pCO2 POC ABG pO2 ABG pO2 ABG HCO3 ABG O2 Saturation ABG Base Excess ABG Hemoglobin ABG Oxyhemoglobin ABG Potassium ABG Glucose Oxyhemoglobin Carboxyhemoglobin Sodium Potassium Chloride 97.0 L Carbon Dioxide 37 H BUN Creatinine < 0.2 L Glucose 129 H POC Glucose 109 H 142 H Calcium 8.3 L Ferritin Total Bilirubin Alkaline Phosphatase Lactate Dehydrogenase Total Creatine Kinase CK-MB (CK-2) Rel Index Troponin T C-Reactive Protein Total Protein Albumin Prealbumin LDL Cholesterol Direct Arterial Blood Glucose Arterial Blood Ionized Calcium Urine WBC (Auto) 03/14/20 03/15/20 03/15/20 23:57 05:46 08:06 WBC 19.7 H RBC 3.29 L Hgb 9.1 L Hct 28.0 L MCV MCH RDW 15.9 H Plt Count Lymph % (Auto) Lymph # (Auto) Swain # (Auto) Seg Neutrophils % Seg Neuts % (Manual) Lymphocytes % (Manual) Monocytes % (Manual) Basophils % (Manual) Seg Neutrophils # Seg Neutrophils # Man Lymphocytes # (Manual) Monocytes # (Manual) Eosinophils # (Manual) Basophils # (Manual) PT INR D-Dimer ABG pH POC ABG pCO2 POC ABG pO2 ABG pO2 ABG HCO3 ABG O2 Saturation ABG Base Excess ABG Hemoglobin ABG Oxyhemoglobin ABG Potassium ABG Glucose Oxyhemoglobin Carboxyhemoglobin Sodium Potassium Chloride Carbon Dioxide BUN Creatinine Glucose POC Glucose 157 H 118 H Calcium Ferritin Total Bilirubin Alkaline Phosphatase Lactate Dehydrogenase Total Creatine Kinase CK-MB (CK-2) Rel Index Troponin T C-Reactive Protein Total Protein Albumin Prealbumin LDL Cholesterol Direct Arterial Blood Glucose Arterial Blood Ionized Calcium Urine WBC (Auto) 03/15/20 03/15/20 03/15/20 08:06 12:44 18:09 WBC RBC Hgb Hct MCV MCH RDW Plt Count Lymph % (Auto) Lymph # (Auto) Swain # (Auto) Seg Neutrophils % Seg Neuts % (Manual) Lymphocytes % (Manual) Monocytes % (Manual) Basophils % (Manual) Seg Neutrophils # Seg Neutrophils # Man Lymphocytes # (Manual) Monocytes # (Manual) Eosinophils # (Manual) Basophils # (Manual) PT INR D-Dimer ABG pH POC ABG pCO2 POC ABG pO2 ABG pO2 ABG HCO3 ABG O2 Saturation ABG Base Excess ABG Hemoglobin ABG Oxyhemoglobin ABG Potassium ABG Glucose Oxyhemoglobin Carboxyhemoglobin Sodium 136 L Potassium Chloride 93.6 L Carbon Dioxide 37 H BUN Creatinine < 0.2 L Glucose 132 H POC Glucose 151 H 164 H Calcium Ferritin Total Bilirubin Alkaline Phosphatase Lactate Dehydrogenase Total Creatine Kinase CK-MB (CK-2) Rel Index Troponin T C-Reactive Protein Total Protein Albumin Prealbumin LDL Cholesterol Direct Arterial Blood Glucose Arterial Blood Ionized Calcium Urine WBC (Auto) 11/18/20 11/19/20 11/19/20 23:26 05:39 11:58 WBC RBC Hgb Hct MCV MCH RDW Plt Count Lymph % (Auto) Lymph # (Auto) Swain # (Auto) Seg Neutrophils % Seg Neuts % (Manual) Lymphocytes % (Manual) Monocytes % (Manual) Basophils % (Manual) Seg Neutrophils # Seg Neutrophils # Man Lymphocytes # (Manual) Monocytes # (Manual) Eosinophils # (Manual) Basophils # (Manual) PT INR D-Dimer ABG pH POC ABG pCO2 POC ABG pO2 ABG pO2 ABG HCO3 ABG O2 Saturation ABG Base Excess ABG Hemoglobin ABG Oxyhemoglobin ABG Potassium ABG Glucose Oxyhemoglobin Carboxyhemoglobin Sodium Potassium Chloride Carbon Dioxide BUN Creatinine Glucose POC Glucose 136 H 116 H 109 H Calcium Ferritin Total Bilirubin Alkaline Phosphatase Lactate Dehydrogenase Total Creatine Kinase CK-MB (CK-2) Rel Index Troponin T C-Reactive Protein Total Protein Albumin Prealbumin LDL Cholesterol Direct Arterial Blood Glucose Arterial Blood Ionized Calcium Urine WBC (Auto) 03/16/20 03/17/20 03/17/20 23:56 04:40 04:40 WBC 18.0 H RBC 3.33 L Hgb 9.5 L Hct 28.8 L MCV MCH RDW 16.4 H Plt Count 499 H Lymph % (Auto) Lymph # (Auto) Swain # (Auto) Seg Neutrophils % Seg Neuts % (Manual) 82.0 H Lymphocytes % (Manual) 8.0 L Monocytes % (Manual) Basophils % (Manual) Seg Neutrophils # Seg Neutrophils # Man 14.8 H Lymphocytes # (Manual) Monocytes # (Manual) 1.3 H Eosinophils # (Manual) Basophils # (Manual) 0.2 H PT INR D-Dimer ABG pH POC ABG pCO2 POC ABG pO2 ABG pO2 ABG HCO3 ABG O2 Saturation ABG Base Excess ABG Hemoglobin ABG Oxyhemoglobin ABG Potassium ABG Glucose Oxyhemoglobin Carboxyhemoglobin Sodium Potassium Chloride 97.7 L Carbon Dioxide 32 H BUN Creatinine < 0.2 L Glucose 114 H POC Glucose 131 H Calcium Ferritin Total Bilirubin Alkaline Phosphatase Lactate Dehydrogenase Total Creatine Kinase CK-MB (CK-2) Rel Index Troponin T C-Reactive Protein Total Protein Albumin Prealbumin LDL Cholesterol Direct Arterial Blood Glucose Arterial Blood Ionized Calcium Urine WBC (Auto) 03/18/20 03/18/20 03/18/20 00:21 05:21 11:55 WBC RBC Hgb Hct MCV MCH RDW Plt Count Lymph % (Auto) Lymph # (Auto) Swain # (Auto) Seg Neutrophils % Seg Neuts % (Manual) Lymphocytes % (Manual) Monocytes % (Manual) Basophils % (Manual) Seg Neutrophils # Seg Neutrophils # Man Lymphocytes # (Manual) Monocytes # (Manual) Eosinophils # (Manual) Basophils # (Manual) PT INR D-Dimer ABG pH POC ABG pCO2 POC ABG pO2 ABG pO2 ABG HCO3 ABG O2 Saturation ABG Base Excess ABG Hemoglobin ABG Oxyhemoglobin ABG Potassium ABG Glucose Oxyhemoglobin Carboxyhemoglobin Sodium Potassium Chloride Carbon Dioxide BUN Creatinine Glucose POC Glucose 124 H 138 H 119 H Calcium Ferritin Total Bilirubin Alkaline Phosphatase Lactate Dehydrogenase Total Creatine Kinase CK-MB (CK-2) Rel Index Troponin T C-Reactive Protein Total Protein Albumin Prealbumin LDL Cholesterol Direct Arterial Blood Glucose Arterial Blood Ionized Calcium Urine WBC (Auto) 03/18/20 03/18/20 03/19/20 17:03 23:58 05:24 WBC RBC Hgb Hct MCV MCH RDW Plt Count Lymph % (Auto) Lymph # (Auto) Swain # (Auto) Seg Neutrophils % Seg Neuts % (Manual) Lymphocytes % (Manual) Monocytes % (Manual) Basophils % (Manual) Seg Neutrophils # Seg Neutrophils # Man Lymphocytes # (Manual) Monocytes # (Manual) Eosinophils # (Manual) Basophils # (Manual) PT INR D-Dimer ABG pH POC ABG pCO2 POC ABG pO2 ABG pO2 ABG HCO3 ABG O2 Saturation ABG Base Excess ABG Hemoglobin ABG Oxyhemoglobin ABG Potassium ABG Glucose Oxyhemoglobin Carboxyhemoglobin Sodium Potassium Chloride Carbon Dioxide BUN Creatinine Glucose POC Glucose 128 H 128 H 115 H Calcium Ferritin Total Bilirubin Alkaline Phosphatase Lactate Dehydrogenase Total Creatine Kinase CK-MB (CK-2) Rel Index Troponin T C-Reactive Protein Total Protein Albumin Prealbumin LDL Cholesterol Direct Arterial Blood Glucose Arterial Blood Ionized Calcium Urine WBC (Auto) 03/19/20 03/19/20 03/19/20 08:05 08:05 11:56 WBC 16.8 H RBC 3.36 L Hgb 9.4 L Hct 28.8 L MCV MCH RDW 17.4 H Plt Count 567 H Lymph % (Auto) 7.8 L Lymph # (Auto) Swain # (Auto) 1.2 H Seg Neutrophils % 83.5 H Seg Neuts % (Manual) Lymphocytes % (Manual) Monocytes % (Manual) Basophils % (Manual) Seg Neutrophils # 14.1 H Seg Neutrophils # Man Lymphocytes # (Manual) Monocytes # (Manual) Eosinophils # (Manual) Basophils # (Manual) PT INR D-Dimer ABG pH POC ABG pCO2 POC ABG pO2 ABG pO2 ABG HCO3 ABG O2 Saturation ABG Base Excess ABG Hemoglobin ABG Oxyhemoglobin ABG Potassium ABG Glucose Oxyhemoglobin Carboxyhemoglobin Sodium Potassium Chloride Carbon Dioxide 36 H BUN Creatinine < 0.2 L Glucose 135 H POC Glucose 128 H Calcium Ferritin Total Bilirubin Alkaline Phosphatase Lactate Dehydrogenase Total Creatine Kinase CK-MB (CK-2) Rel Index Troponin T C-Reactive Protein Total Protein Albumin Prealbumin LDL Cholesterol Direct Arterial Blood Glucose Arterial Blood Ionized Calcium Urine WBC (Auto) 03/19/20 03/20/20 03/20/20 23:59 05:12 16:52 WBC RBC Hgb Hct MCV MCH RDW Plt Count Lymph % (Auto) Lymph # (Auto) Swain # (Auto) Seg Neutrophils % Seg Neuts % (Manual) Lymphocytes % (Manual) Monocytes % (Manual) Basophils % (Manual) Seg Neutrophils # Seg Neutrophils # Man Lymphocytes # (Manual) Monocytes # (Manual) Eosinophils # (Manual) Basophils # (Manual) PT INR D-Dimer ABG pH POC ABG pCO2 POC ABG pO2 ABG pO2 ABG HCO3 ABG O2 Saturation ABG Base Excess ABG Hemoglobin ABG Oxyhemoglobin ABG Potassium ABG Glucose Oxyhemoglobin Carboxyhemoglobin Sodium Potassium Chloride Carbon Dioxide BUN Creatinine Glucose POC Glucose 120 H 131 H 124 H Calcium Ferritin Total Bilirubin Alkaline Phosphatase Lactate Dehydrogenase Total Creatine Kinase CK-MB (CK-2) Rel Index Troponin T C-Reactive Protein Total Protein Albumin Prealbumin LDL Cholesterol Direct Arterial Blood Glucose Arterial Blood Ionized Calcium Urine WBC (Auto) 03/20/20 03/21/20 03/21/20 23:35 04:50 07:35 WBC 15.2 H RBC 3.39 L Hgb 9.4 L Hct 29.4 L MCV MCH RDW 17.6 H Plt Count 518 H Lymph % (Auto) Lymph # (Auto) Swain # (Auto) Seg Neutrophils % Seg Neuts % (Manual) 83.0 H Lymphocytes % (Manual) 10.0 L Monocytes % (Manual) Basophils % (Manual) 2.0 H Seg Neutrophils # Seg Neutrophils # Man 12.6 H Lymphocytes # (Manual) Monocytes # (Manual) Eosinophils # (Manual) Basophils # (Manual) 0.3 H PT INR D-Dimer ABG pH POC ABG pCO2 POC ABG pO2 ABG pO2 ABG HCO3 ABG O2 Saturation ABG Base Excess ABG Hemoglobin ABG Oxyhemoglobin ABG Potassium ABG Glucose Oxyhemoglobin Carboxyhemoglobin Sodium Potassium Chloride Carbon Dioxide BUN Creatinine Glucose POC Glucose 125 H 127 H Calcium Ferritin Total Bilirubin Alkaline Phosphatase Lactate Dehydrogenase Total Creatine Kinase CK-MB (CK-2) Rel Index Troponin T C-Reactive Protein Total Protein Albumin Prealbumin LDL Cholesterol Direct Arterial Blood Glucose Arterial Blood Ionized Calcium Urine WBC (Auto) 03/21/20 03/21/20 03/21/20 07:35 11:45 17:22 WBC RBC Hgb Hct MCV MCH RDW Plt Count Lymph % (Auto) Lymph # (Auto) Swain # (Auto) Seg Neutrophils % Seg Neuts % (Manual) Lymphocytes % (Manual) Monocytes % (Manual) Basophils % (Manual) Seg Neutrophils # Seg Neutrophils # Man Lymphocytes # (Manual) Monocytes # (Manual) Eosinophils # (Manual) Basophils # (Manual) PT INR D-Dimer ABG pH POC ABG pCO2 POC ABG pO2 ABG pO2 ABG HCO3 ABG O2 Saturation ABG Base Excess ABG Hemoglobin ABG Oxyhemoglobin ABG Potassium ABG Glucose Oxyhemoglobin Carboxyhemoglobin Sodium 136 L Potassium Chloride 97.7 L Carbon Dioxide 32 H BUN Creatinine < 0.2 L Glucose 103 H POC Glucose 126 H 120 H Calcium Ferritin Total Bilirubin Alkaline Phosphatase Lactate Dehydrogenase Total Creatine Kinase CK-MB (CK-2) Rel Index Troponin T C-Reactive Protein Total Protein Albumin Prealbumin LDL Cholesterol Direct Arterial Blood Glucose Arterial Blood Ionized Calcium Urine WBC (Auto) 03/22/20 03/22/20 03/22/20 05:09 06:34 06:34 WBC 17.5 H RBC 3.52 L Hgb 10.0 L Hct 30.7 L MCV MCH RDW 17.5 H Plt Count 499 H Lymph % (Auto) Lymph # (Auto) Swain # (Auto) Seg Neutrophils % Seg Neuts % (Manual) 80.0 H Lymphocytes % (Manual) 10.0 L Monocytes % (Manual) Basophils % (Manual) Seg Neutrophils # Seg Neutrophils # Man 14.0 H Lymphocytes # (Manual) Monocytes # (Manual) Eosinophils # (Manual) Basophils # (Manual) PT INR D-Dimer ABG pH POC ABG pCO2 POC ABG pO2 ABG pO2 ABG HCO3 ABG O2 Saturation ABG Base Excess ABG Hemoglobin ABG Oxyhemoglobin ABG Potassium ABG Glucose Oxyhemoglobin Carboxyhemoglobin Sodium Potassium Chloride 96.6 L Carbon Dioxide 38 H BUN Creatinine < 0.2 L Glucose 139 H POC Glucose 125 H Calcium Ferritin Total Bilirubin Alkaline Phosphatase Lactate Dehydrogenase Total Creatine Kinase CK-MB (CK-2) Rel Index Troponin T C-Reactive Protein Total Protein Albumin Prealbumin LDL Cholesterol Direct Arterial Blood Glucose Arterial Blood Ionized Calcium Urine WBC (Auto) 03/22/20 03/22/20 03/22/20 11:45 18:00 23:32 WBC RBC Hgb Hct MCV MCH RDW Plt Count Lymph % (Auto) Lymph # (Auto) Swain # (Auto) Seg Neutrophils % Seg Neuts % (Manual) Lymphocytes % (Manual) Monocytes % (Manual) Basophils % (Manual) Seg Neutrophils # Seg Neutrophils # Man Lymphocytes # (Manual) Monocytes # (Manual) Eosinophils # (Manual) Basophils # (Manual) PT INR D-Dimer ABG pH POC ABG pCO2 POC ABG pO2 ABG pO2 ABG HCO3 ABG O2 Saturation ABG Base Excess ABG Hemoglobin ABG Oxyhemoglobin ABG Potassium ABG Glucose Oxyhemoglobin Carboxyhemoglobin Sodium Potassium Chloride Carbon Dioxide BUN Creatinine Glucose POC Glucose 135 H 133 H Calcium Ferritin Total Bilirubin Alkaline Phosphatase Lactate Dehydrogenase Total Creatine Kinase CK-MB (CK-2) Rel Index Troponin T 0.113 H* C-Reactive Protein Total Protein Albumin Prealbumin LDL Cholesterol Direct Arterial Blood Glucose Arterial Blood Ionized Calcium Urine WBC (Auto) 03/23/20 03/23/20 03/23/20 01:47 06:21 07:57 WBC RBC Hgb Hct MCV MCH RDW Plt Count Lymph % (Auto) Lymph # (Auto) Swain # (Auto) Seg Neutrophils % Seg Neuts % (Manual) Lymphocytes % (Manual) Monocytes % (Manual) Basophils % (Manual) Seg Neutrophils # Seg Neutrophils # Man Lymphocytes # (Manual) Monocytes # (Manual) Eosinophils # (Manual) Basophils # (Manual) PT INR D-Dimer ABG pH POC ABG pCO2 POC ABG pO2 ABG pO2 ABG HCO3 ABG O2 Saturation ABG Base Excess ABG Hemoglobin ABG Oxyhemoglobin ABG Potassium ABG Glucose Oxyhemoglobin Carboxyhemoglobin Sodium Potassium Chloride Carbon Dioxide BUN Creatinine Glucose POC Glucose 130 H Calcium Ferritin Total Bilirubin Alkaline Phosphatase Lactate Dehydrogenase Total Creatine Kinase CK-MB (CK-2) Rel Index Troponin T 0.143 H* D 0.105 H* D C-Reactive Protein Total Protein Albumin Prealbumin LDL Cholesterol Direct Arterial Blood Glucose Arterial Blood Ionized Calcium Urine WBC (Auto) 03/23/20 03/24/20 03/24/20 12:02 05:33 07:15 WBC 18.0 H RBC Hgb 11.0 L Hct 34.0 L MCV MCH RDW 17.4 H Plt Count 520 H Lymph % (Auto) Lymph # (Auto) Swain # (Auto) Seg Neutrophils % Seg Neuts % (Manual) 88.0 H Lymphocytes % (Manual) 7.0 L Monocytes % (Manual) Basophils % (Manual) Seg Neutrophils # Seg Neutrophils # Man 15.8 H Lymphocytes # (Manual) Monocytes # (Manual) Eosinophils # (Manual) Basophils # (Manual) PT INR D-Dimer ABG pH POC ABG pCO2 POC ABG pO2 ABG pO2 ABG HCO3 ABG O2 Saturation ABG Base Excess ABG Hemoglobin ABG Oxyhemoglobin ABG Potassium ABG Glucose Oxyhemoglobin Carboxyhemoglobin Sodium Potassium Chloride Carbon Dioxide BUN Creatinine Glucose POC Glucose 137 H 112 H Calcium Ferritin Total Bilirubin Alkaline Phosphatase Lactate Dehydrogenase Total Creatine Kinase CK-MB (CK-2) Rel Index Troponin T C-Reactive Protein Total Protein Albumin Prealbumin LDL Cholesterol Direct Arterial Blood Glucose Arterial Blood Ionized Calcium Urine WBC (Auto) 03/24/20 03/24/20 03/24/20 07:15 11:22 23:30 WBC RBC Hgb Hct MCV MCH RDW Plt Count Lymph % (Auto) Lymph # (Auto) Swain # (Auto) Seg Neutrophils % Seg Neuts % (Manual) Lymphocytes % (Manual) Monocytes % (Manual) Basophils % (Manual) Seg Neutrophils # Seg Neutrophils # Man Lymphocytes # (Manual) Monocytes # (Manual) Eosinophils # (Manual) Basophils # (Manual) PT INR D-Dimer ABG pH POC ABG pCO2 POC ABG pO2 ABG pO2 ABG HCO3 ABG O2 Saturation ABG Base Excess ABG Hemoglobin ABG Oxyhemoglobin ABG Potassium ABG Glucose Oxyhemoglobin Carboxyhemoglobin Sodium Potassium Chloride 96.6 L Carbon Dioxide 38 H BUN Creatinine < 0.2 L Glucose 141 H POC Glucose 130 H 120 H Calcium Ferritin Total Bilirubin Alkaline Phosphatase Lactate Dehydrogenase Total Creatine Kinase CK-MB (CK-2) Rel Index Troponin T C-Reactive Protein Total Protein Albumin Prealbumin LDL Cholesterol Direct Arterial Blood Glucose Arterial Blood Ionized Calcium Urine WBC (Auto) 03/25/20 03/25/20 03/25/20 05:48 17:53 23:18 WBC RBC Hgb Hct MCV MCH RDW Plt Count Lymph % (Auto) Lymph # (Auto) Swain # (Auto) Seg Neutrophils % Seg Neuts % (Manual) Lymphocytes % (Manual) Monocytes % (Manual) Basophils % (Manual) Seg Neutrophils # Seg Neutrophils # Man Lymphocytes # (Manual) Monocytes # (Manual) Eosinophils # (Manual) Basophils # (Manual) PT INR D-Dimer ABG pH POC ABG pCO2 POC ABG pO2 ABG pO2 ABG HCO3 ABG O2 Saturation ABG Base Excess ABG Hemoglobin ABG Oxyhemoglobin ABG Potassium ABG Glucose Oxyhemoglobin Carboxyhemoglobin Sodium Potassium Chloride Carbon Dioxide BUN Creatinine Glucose POC Glucose 124 H 109 H 131 H Calcium Ferritin Total Bilirubin Alkaline Phosphatase Lactate Dehydrogenase Total Creatine Kinase CK-MB (CK-2) Rel Index Troponin T C-Reactive Protein Total Protein Albumin Prealbumin LDL Cholesterol Direct Arterial Blood Glucose Arterial Blood Ionized Calcium Urine WBC (Auto) 03/26/20 03/26/20 03/26/20 05:21 08:49 08:49 WBC 19.7 H RBC Hgb 10.7 L Hct 33.5 L MCV MCH 27 L RDW 17.1 H Plt Count 480 H Lymph % (Auto) 5.7 L Lymph # (Auto) 1.1 L Swain # (Auto) 1.2 H Seg Neutrophils % 87.7 H Seg Neuts % (Manual) Lymphocytes % (Manual) Monocytes % (Manual) Basophils % (Manual) Seg Neutrophils # 17.2 H Seg Neutrophils # Man Lymphocytes # (Manual) Monocytes # (Manual) Eosinophils # (Manual) Basophils # (Manual) PT INR D-Dimer ABG pH POC ABG pCO2 POC ABG pO2 ABG pO2 ABG HCO3 ABG O2 Saturation ABG Base Excess ABG Hemoglobin ABG Oxyhemoglobin ABG Potassium ABG Glucose Oxyhemoglobin Carboxyhemoglobin Sodium Potassium Chloride 97.2 L Carbon Dioxide 36 H BUN Creatinine < 0.2 L Glucose 127 H POC Glucose 116 H Calcium Ferritin Total Bilirubin Alkaline Phosphatase Lactate Dehydrogenase Total Creatine Kinase CK-MB (CK-2) Rel Index Troponin T C-Reactive Protein Total Protein Albumin Prealbumin LDL Cholesterol Direct Arterial Blood Glucose Arterial Blood Ionized Calcium Urine WBC (Auto) 03/26/20 03/26/20 03/26/20 11:38 18:44 23:06 WBC RBC Hgb Hct MCV MCH RDW Plt Count Lymph % (Auto) Lymph # (Auto) Swain # (Auto) Seg Neutrophils % Seg Neuts % (Manual) Lymphocytes % (Manual) Monocytes % (Manual) Basophils % (Manual) Seg Neutrophils # Seg Neutrophils # Man Lymphocytes # (Manual) Monocytes # (Manual) Eosinophils # (Manual) Basophils # (Manual) PT INR D-Dimer ABG pH POC ABG pCO2 POC ABG pO2 ABG pO2 ABG HCO3 ABG O2 Saturation ABG Base Excess ABG Hemoglobin ABG Oxyhemoglobin ABG Potassium ABG Glucose Oxyhemoglobin Carboxyhemoglobin Sodium Potassium Chloride Carbon Dioxide BUN Creatinine Glucose POC Glucose 120 H 111 H 134 H Calcium Ferritin Total Bilirubin Alkaline Phosphatase Lactate Dehydrogenase Total Creatine Kinase CK-MB (CK-2) Rel Index Troponin T C-Reactive Protein Total Protein Albumin Prealbumin LDL Cholesterol Direct Arterial Blood Glucose Arterial Blood Ionized Calcium Urine WBC (Auto) 03/27/20 03/27/20 03/27/20 05:41 05:59 05:59 WBC 18.6 H RBC Hgb 10.1 L Hct 31.4 L MCV MCH RDW 17.2 H Plt Count Lymph % (Auto) 8.0 L Lymph # (Auto) Swain # (Auto) 1.2 H Seg Neutrophils % 84.7 H Seg Neuts % (Manual) Lymphocytes % (Manual) Monocytes % (Manual) Basophils % (Manual) Seg Neutrophils # 15.8 H Seg Neutrophils # Man Lymphocytes # (Manual) Monocytes # (Manual) Eosinophils # (Manual) Basophils # (Manual) PT INR D-Dimer ABG pH POC ABG pCO2 POC ABG pO2 ABG pO2 ABG HCO3 ABG O2 Saturation ABG Base Excess ABG Hemoglobin ABG Oxyhemoglobin ABG Potassium ABG Glucose Oxyhemoglobin Carboxyhemoglobin Sodium Potassium Chloride Carbon Dioxide 34 H BUN Creatinine < 0.2 L Glucose 127 H POC Glucose 129 H Calcium Ferritin Total Bilirubin Alkaline Phosphatase Lactate Dehydrogenase Total Creatine Kinase CK-MB (CK-2) Rel Index Troponin T C-Reactive Protein Total Protein Albumin Prealbumin LDL Cholesterol Direct Arterial Blood Glucose Arterial Blood Ionized Calcium Urine WBC (Auto) 03/27/20 03/27/20 03/28/20 17:28 23:22 05:23 WBC RBC Hgb Hct MCV MCH RDW Plt Count Lymph % (Auto) Lymph # (Auto) Swain # (Auto) Seg Neutrophils % Seg Neuts % (Manual) Lymphocytes % (Manual) Monocytes % (Manual) Basophils % (Manual) Seg Neutrophils # Seg Neutrophils # Man Lymphocytes # (Manual) Monocytes # (Manual) Eosinophils # (Manual) Basophils # (Manual) PT INR D-Dimer ABG pH POC ABG pCO2 POC ABG pO2 ABG pO2 ABG HCO3 ABG O2 Saturation ABG Base Excess ABG Hemoglobin ABG Oxyhemoglobin ABG Potassium ABG Glucose Oxyhemoglobin Carboxyhemoglobin Sodium Potassium Chloride Carbon Dioxide BUN Creatinine Glucose POC Glucose 108 H 119 H 129 H Calcium Ferritin Total Bilirubin Alkaline Phosphatase Lactate Dehydrogenase Total Creatine Kinase CK-MB (CK-2) Rel Index Troponin T C-Reactive Protein Total Protein Albumin Prealbumin LDL Cholesterol Direct Arterial Blood Glucose Arterial Blood Ionized Calcium Urine WBC (Auto) 03/28/20 03/28/20 03/28/20 10:28 10:28 11:36 WBC 23.6 H RBC 3.62 L Hgb 10.0 L Hct 30.8 L MCV MCH RDW 16.4 H Plt Count Lymph % (Auto) Lymph # (Auto) Swain # (Auto) Seg Neutrophils % Seg Neuts % (Manual) 89.0 H Lymphocytes % (Manual) 5.0 L Monocytes % (Manual) Basophils % (Manual) Seg Neutrophils # Seg Neutrophils # Man 21.0 H Lymphocytes # (Manual) Monocytes # (Manual) 1.2 H Eosinophils # (Manual) Basophils # (Manual) 0.2 H PT INR D-Dimer ABG pH POC ABG pCO2 POC ABG pO2 ABG pO2 ABG HCO3 ABG O2 Saturation ABG Base Excess ABG Hemoglobin ABG Oxyhemoglobin ABG Potassium ABG Glucose Oxyhemoglobin Carboxyhemoglobin Sodium 134 L Potassium Chloride 94.2 L Carbon Dioxide 35 H BUN Creatinine < 0.2 L Glucose 134 H POC Glucose Calcium Ferritin Total Bilirubin Alkaline Phosphatase Lactate Dehydrogenase Total Creatine Kinase CK-MB (CK-2) Rel Index Troponin T C-Reactive Protein Total Protein Albumin Prealbumin LDL Cholesterol Direct Arterial Blood Glucose Arterial Blood Ionized Calcium Urine WBC (Auto) 39.0 H 03/28/20 03/28/20 03/28/20 11:51 17:08 17:17 WBC RBC Hgb Hct MCV MCH RDW Plt Count Lymph % (Auto) Lymph # (Auto) Swain # (Auto) Seg Neutrophils % Seg Neuts % (Manual) Lymphocytes % (Manual) Monocytes % (Manual) Basophils % (Manual) Seg Neutrophils # Seg Neutrophils # Man Lymphocytes # (Manual) Monocytes # (Manual) Eosinophils # (Manual) Basophils # (Manual) PT INR D-Dimer ABG pH POC ABG pCO2 POC ABG pO2 ABG pO2 ABG HCO3 ABG O2 Saturation ABG Base Excess ABG Hemoglobin ABG Oxyhemoglobin ABG Potassium ABG Glucose Oxyhemoglobin Carboxyhemoglobin Sodium Potassium Chloride Carbon Dioxide BUN Creatinine Glucose POC Glucose 123 H 112 H Calcium Ferritin Total Bilirubin Alkaline Phosphatase Lactate Dehydrogenase Total Creatine Kinase 47 L CK-MB (CK-2) Rel Index 4.6 H Troponin T 0.090 H C-Reactive Protein Total Protein Albumin Prealbumin LDL Cholesterol Direct Arterial Blood Glucose Arterial Blood Ionized Calcium Urine WBC (Auto) 03/28/20 03/29/20 03/29/20 23:22 05:22 10:58 WBC RBC Hgb Hct MCV MCH RDW Plt Count Lymph % (Auto) Lymph # (Auto) Swain # (Auto) Seg Neutrophils % Seg Neuts % (Manual) Lymphocytes % (Manual) Monocytes % (Manual) Basophils % (Manual) Seg Neutrophils # Seg Neutrophils # Man Lymphocytes # (Manual) Monocytes # (Manual) Eosinophils # (Manual) Basophils # (Manual) PT INR D-Dimer ABG pH POC ABG pCO2 POC ABG pO2 ABG pO2 ABG HCO3 ABG O2 Saturation ABG Base Excess ABG Hemoglobin ABG Oxyhemoglobin ABG Potassium ABG Glucose Oxyhemoglobin Carboxyhemoglobin Sodium Potassium Chloride Carbon Dioxide BUN Creatinine Glucose POC Glucose 122 H 116 H 133 H Calcium Ferritin Total Bilirubin Alkaline Phosphatase Lactate Dehydrogenase Total Creatine Kinase CK-MB (CK-2) Rel Index Troponin T C-Reactive Protein Total Protein Albumin Prealbumin LDL Cholesterol Direct Arterial Blood Glucose Arterial Blood Ionized Calcium Urine WBC (Auto) 03/29/20 03/29/20 03/30/20 17:18 23:14 04:57 WBC RBC Hgb Hct MCV MCH RDW Plt Count Lymph % (Auto) Lymph # (Auto) Swain # (Auto) Seg Neutrophils % Seg Neuts % (Manual) Lymphocytes % (Manual) Monocytes % (Manual) Basophils % (Manual) Seg Neutrophils # Seg Neutrophils # Man Lymphocytes # (Manual) Monocytes # (Manual) Eosinophils # (Manual) Basophils # (Manual) PT INR D-Dimer ABG pH POC ABG pCO2 POC ABG pO2 ABG pO2 ABG HCO3 ABG O2 Saturation ABG Base Excess ABG Hemoglobin ABG Oxyhemoglobin ABG Potassium ABG Glucose Oxyhemoglobin Carboxyhemoglobin Sodium Potassium Chloride Carbon Dioxide BUN Creatinine Glucose POC Glucose 111 H 114 H 130 H Calcium Ferritin Total Bilirubin Alkaline Phosphatase Lactate Dehydrogenase Total Creatine Kinase CK-MB (CK-2) Rel Index Troponin T C-Reactive Protein Total Protein Albumin Prealbumin LDL Cholesterol Direct Arterial Blood Glucose Arterial Blood Ionized Calcium Urine WBC (Auto) 03/30/20 03/30/20 03/30/20 11:38 14:47 14:47 WBC 19.9 H RBC Hgb 10.9 L Hct 34.4 L MCV MCH 27 L RDW 16.5 H Plt Count 441 H Lymph % (Auto) 6.4 L Lymph # (Auto) Swain # (Auto) 1.4 H Seg Neutrophils % 86.1 H Seg Neuts % (Manual) Lymphocytes % (Manual) Monocytes % (Manual) Basophils % (Manual) Seg Neutrophils # 17.1 H Seg Neutrophils # Man Lymphocytes # (Manual) Monocytes # (Manual) Eosinophils # (Manual) Basophils # (Manual) PT INR D-Dimer ABG pH POC ABG pCO2 POC ABG pO2 ABG pO2 ABG HCO3 ABG O2 Saturation ABG Base Excess ABG Hemoglobin ABG Oxyhemoglobin ABG Potassium ABG Glucose Oxyhemoglobin Carboxyhemoglobin Sodium 133 L Potassium Chloride 94.6 L Carbon Dioxide 33 H BUN Creatinine < 0.2 L Glucose 194 H POC Glucose 139 H Calcium Ferritin Total Bilirubin Alkaline Phosphatase Lactate Dehydrogenase Total Creatine Kinase CK-MB (CK-2) Rel Index Troponin T C-Reactive Protein Total Protein Albumin 2.8 L Prealbumin LDL Cholesterol Direct Arterial Blood Glucose Arterial Blood Ionized Calcium Urine WBC (Auto) 03/30/20 03/31/20 03/31/20 17:07 05:02 15:21 WBC RBC Hgb Hct MCV MCH RDW Plt Count Lymph % (Auto) Lymph # (Auto) Swain # (Auto) Seg Neutrophils % Seg Neuts % (Manual) Lymphocytes % (Manual) Monocytes % (Manual) Basophils % (Manual) Seg Neutrophils # Seg Neutrophils # Man Lymphocytes # (Manual) Monocytes # (Manual) Eosinophils # (Manual) Basophils # (Manual) PT INR D-Dimer ABG pH POC ABG pCO2 POC ABG pO2 ABG pO2 ABG HCO3 ABG O2 Saturation ABG Base Excess ABG Hemoglobin ABG Oxyhemoglobin ABG Potassium ABG Glucose Oxyhemoglobin Carboxyhemoglobin Sodium Potassium Chloride Carbon Dioxide BUN Creatinine Glucose POC Glucose 163 H 108 H 110 H Calcium Ferritin Total Bilirubin Alkaline Phosphatase Lactate Dehydrogenase Total Creatine Kinase CK-MB (CK-2) Rel Index Troponin T C-Reactive Protein Total Protein Albumin Prealbumin LDL Cholesterol Direct Arterial Blood Glucose Arterial Blood Ionized Calcium Urine WBC (Auto) 03/31/20 03/31/20 04/01/20 17:58 23:19 05:09 WBC RBC Hgb Hct MCV MCH RDW Plt Count Lymph % (Auto) Lymph # (Auto) Swain # (Auto) Seg Neutrophils % Seg Neuts % (Manual) Lymphocytes % (Manual) Monocytes % (Manual) Basophils % (Manual) Seg Neutrophils # Seg Neutrophils # Man Lymphocytes # (Manual) Monocytes # (Manual) Eosinophils # (Manual) Basophils # (Manual) PT INR D-Dimer ABG pH POC ABG pCO2 POC ABG pO2 ABG pO2 ABG HCO3 ABG O2 Saturation ABG Base Excess ABG Hemoglobin ABG Oxyhemoglobin ABG Potassium ABG Glucose Oxyhemoglobin Carboxyhemoglobin Sodium Potassium Chloride Carbon Dioxide BUN Creatinine Glucose POC Glucose 110 H 131 H 124 H Calcium Ferritin Total Bilirubin Alkaline Phosphatase Lactate Dehydrogenase Total Creatine Kinase CK-MB (CK-2) Rel Index Troponin T C-Reactive Protein Total Protein Albumin Prealbumin LDL Cholesterol Direct Arterial Blood Glucose Arterial Blood Ionized Calcium Urine WBC (Auto) 04/01/20 04/01/20 04/01/20 11:50 17:01 23:21 WBC RBC Hgb Hct MCV MCH RDW Plt Count Lymph % (Auto) Lymph # (Auto) Swain # (Auto) Seg Neutrophils % Seg Neuts % (Manual) Lymphocytes % (Manual) Monocytes % (Manual) Basophils % (Manual) Seg Neutrophils # Seg Neutrophils # Man Lymphocytes # (Manual) Monocytes # (Manual) Eosinophils # (Manual) Basophils # (Manual) PT INR D-Dimer ABG pH POC ABG pCO2 POC ABG pO2 ABG pO2 ABG HCO3 ABG O2 Saturation ABG Base Excess ABG Hemoglobin ABG Oxyhemoglobin ABG Potassium ABG Glucose Oxyhemoglobin Carboxyhemoglobin Sodium Potassium Chloride Carbon Dioxide BUN Creatinine Glucose POC Glucose 136 H 115 H 124 H Calcium Ferritin Total Bilirubin Alkaline Phosphatase Lactate Dehydrogenase Total Creatine Kinase CK-MB (CK-2) Rel Index Troponin T C-Reactive Protein Total Protein Albumin Prealbumin LDL Cholesterol Direct Arterial Blood Glucose Arterial Blood Ionized Calcium Urine WBC (Auto) 04/02/20 04/02/20 04/02/20 05:27 11:58 17:58 WBC RBC Hgb Hct MCV MCH RDW Plt Count Lymph % (Auto) Lymph # (Auto) Swain # (Auto) Seg Neutrophils % Seg Neuts % (Manual) Lymphocytes % (Manual) Monocytes % (Manual) Basophils % (Manual) Seg Neutrophils # Seg Neutrophils # Man Lymphocytes # (Manual) Monocytes # (Manual) Eosinophils # (Manual) Basophils # (Manual) PT INR D-Dimer ABG pH POC ABG pCO2 POC ABG pO2 ABG pO2 ABG HCO3 ABG O2 Saturation ABG Base Excess ABG Hemoglobin ABG Oxyhemoglobin ABG Potassium ABG Glucose Oxyhemoglobin Carboxyhemoglobin Sodium Potassium Chloride Carbon Dioxide BUN Creatinine Glucose POC Glucose 117 H 133 H 122 H Calcium Ferritin Total Bilirubin Alkaline Phosphatase Lactate Dehydrogenase Total Creatine Kinase CK-MB (CK-2) Rel Index Troponin T C-Reactive Protein Total Protein Albumin Prealbumin LDL Cholesterol Direct Arterial Blood Glucose Arterial Blood Ionized Calcium Urine WBC (Auto) 04/02/20 04/03/20 04/03/20 23:12 05:11 11:11 WBC RBC Hgb Hct MCV MCH RDW Plt Count Lymph % (Auto) Lymph # (Auto) Swain # (Auto) Seg Neutrophils % Seg Neuts % (Manual) Lymphocytes % (Manual) Monocytes % (Manual) Basophils % (Manual) Seg Neutrophils # Seg Neutrophils # Man Lymphocytes # (Manual) Monocytes # (Manual) Eosinophils # (Manual) Basophils # (Manual) PT INR D-Dimer ABG pH POC ABG pCO2 POC ABG pO2 ABG pO2 ABG HCO3 ABG O2 Saturation ABG Base Excess ABG Hemoglobin ABG Oxyhemoglobin ABG Potassium ABG Glucose Oxyhemoglobin Carboxyhemoglobin Sodium Potassium Chloride Carbon Dioxide BUN Creatinine Glucose POC Glucose 130 H 139 H 136 H Calcium Ferritin Total Bilirubin Alkaline Phosphatase Lactate Dehydrogenase Total Creatine Kinase CK-MB (CK-2) Rel Index Troponin T C-Reactive Protein Total Protein Albumin Prealbumin LDL Cholesterol Direct Arterial Blood Glucose Arterial Blood Ionized Calcium Urine WBC (Auto) 04/03/20 04/03/20 04/04/20 16:51 23:25 05:29 WBC RBC Hgb Hct MCV MCH RDW Plt Count Lymph % (Auto) Lymph # (Auto) Swain # (Auto) Seg Neutrophils % Seg Neuts % (Manual) Lymphocytes % (Manual) Monocytes % (Manual) Basophils % (Manual) Seg Neutrophils # Seg Neutrophils # Man Lymphocytes # (Manual) Monocytes # (Manual) Eosinophils # (Manual) Basophils # (Manual) PT INR D-Dimer ABG pH POC ABG pCO2 POC ABG pO2 ABG pO2 ABG HCO3 ABG O2 Saturation ABG Base Excess ABG Hemoglobin ABG Oxyhemoglobin ABG Potassium ABG Glucose Oxyhemoglobin Carboxyhemoglobin Sodium Potassium Chloride Carbon Dioxide BUN Creatinine Glucose POC Glucose 118 H 111 H 126 H Calcium Ferritin Total Bilirubin Alkaline Phosphatase Lactate Dehydrogenase Total Creatine Kinase CK-MB (CK-2) Rel Index Troponin T C-Reactive Protein Total Protein Albumin Prealbumin LDL Cholesterol Direct Arterial Blood Glucose Arterial Blood Ionized Calcium Urine WBC (Auto) 04/04/20 04/04/20 04/04/20 11:47 17:41 23:05 WBC RBC Hgb Hct MCV MCH RDW Plt Count Lymph % (Auto) Lymph # (Auto) Swain # (Auto) Seg Neutrophils % Seg Neuts % (Manual) Lymphocytes % (Manual) Monocytes % (Manual) Basophils % (Manual) Seg Neutrophils # Seg Neutrophils # Man Lymphocytes # (Manual) Monocytes # (Manual) Eosinophils # (Manual) Basophils # (Manual) PT INR D-Dimer ABG pH POC ABG pCO2 POC ABG pO2 ABG pO2 ABG HCO3 ABG O2 Saturation ABG Base Excess ABG Hemoglobin ABG Oxyhemoglobin ABG Potassium ABG Glucose Oxyhemoglobin Carboxyhemoglobin Sodium Potassium Chloride Carbon Dioxide BUN Creatinine Glucose POC Glucose 123 H 120 H 119 H Calcium Ferritin Total Bilirubin Alkaline Phosphatase Lactate Dehydrogenase Total Creatine Kinase CK-MB (CK-2) Rel Index Troponin T C-Reactive Protein Total Protein Albumin Prealbumin LDL Cholesterol Direct Arterial Blood Glucose Arterial Blood Ionized Calcium Urine WBC (Auto) 04/05/20 05:14 WBC RBC Hgb Hct MCV MCH RDW Plt Count Lymph % (Auto) Lymph # (Auto) [place] # (Auto) Seg Neutrophils % Seg Neuts % (Manual) Lymphocytes % (Manual) Monocytes % (Manual) Basophils % (Manual) Seg Neutrophils # Seg Neutrophils # Man Lymphocytes # (Manual) Monocytes # (Manual) Eosinophils # (Manual) Basophils # (Manual) PT INR D-Dimer ABG pH POC ABG pCO2 POC ABG pO2 ABG pO2 ABG HCO3 ABG O2 Saturation ABG Base Excess ABG Hemoglobin ABG Oxyhemoglobin ABG Potassium ABG Glucose Oxyhemoglobin Carboxyhemoglobin Sodium Potassium Chloride Carbon Dioxide BUN Creatinine Glucose POC Glucose 123 H Calcium Ferritin Total Bilirubin Alkaline Phosphatase Lactate Dehydrogenase Total Creatine Kinase CK-MB (CK-2) Rel Index Troponin T C-Reactive Protein Total Protein Albumin Prealbumin LDL Cholesterol Direct Arterial Blood Glucose Arterial Blood Ionized Calcium Urine WBC (Auto) Chest x-ray: pending Allied health notes reviewed: nursing
[2020-04-05] MEDS: SCOPOLAMINE TRANSDERMAL PATCH 72 HR TD SCH (12:19)
[2020-04-05] MEDS: ALPRAZolam 0.5 MG TAB PO PRN ×2 (12:19→20:16)
[2020-04-05] MEDS: SENNOSIDES 8.6 MG TAB PO SCH (21:53)
[2020-04-05] MEDS: ZOLPIDEM 5 MG TAB PO PRN (21:54)
[2020-04-05] MEDS: ENOXAPARIN 40 MG/0.4 ML INJ SUB-Q SCH (21:55)
[2020-04-06] MEDS: MORPHINE 2 MG/1 ML INJ IV PRN ×3 (00:05→13:40)
[2020-04-06] MEDS: ALPRAZolam 0.5 MG TAB PO PRN ×3 (04:30→23:20)
--- NOTE | 2020-04-06 08:50 | Progress Note ---
Assessment and Plan Assessment and plan: 59-year-old male patient with significant past medical history of ALS, presented to ED with worsening shortness of breath since the morning COSMETIC DENTIST. Patient was on a trilogy machine for breathing 18/11. EMS arrived, patient had O2 sats in the 80s. EMS attempted to place patient on their CPAP machine, hill john patient did not tolerate. Patient was admitted to the ICU with diagnosis of acute hypoxic respiratory failure and placed on BiPAP. Patient initially tolerated but later deteriorated with respiratory status. CTA chest showed no PE but significant for bilateral pneumonia. Doppler ultrasound also negative for DVT. COVID-19 test ordered. Due to persistent hypoxia, patient was intubated on 02/26/2020 at 1500. Patient now on mechanical ventilation in the ICU. 02/26/2020. Blood cultures are negative x48 hours and Covid testing negative as well. Continue antibiotics per ID recommendations for community-acquired bilateral pneumonia. Cardiology consultation for elevated troponin. Check echocardiogram. 02/27/2020. Events of yesterday noted with asystole following V. fib arrest. Patient currently on AC mode rate 20, tidal volume 400, FiO2 50% and a PEEP of 6. Follow-up echocardiogram for elevated troponin. Cardiology suspects NSTEMI Type 2 in the setting of acute resp failure. Chest CTA and BLE Dopplers neg. we will discontinue Decadron given the Covid PCR is negative. 02/25/2020. CTA of the chest reveals no PE but does illustrate the bilateral pneumonia. Doppler ultrasound also negative for DVT. Blood cultures are pending. Await COVID-19 testing. Patient currently requiring BiPAP IPAP 24/EPAP 6 with FiO2 of 25%. Continue O2 and BiPAP as clinically indicated. ID and pulmonary consulted. 02/26/2020. Blood cultures are negative x48 hours and Covid testing negative as well. Continue antibiotics per ID recommendations for community-acquired bilateral pneumonia. Cardiology consultation for elevated troponin. Check echocardiogram. 02/27/2020. Events of yesterday noted with asystole following V. fib arrest. Patient currently on AC mode rate 20, tidal volume 400, FiO2 50% and a PEEP of 6. Follow-up echocardiogram for elevated troponin. Cardiology suspects NSTEMI Type 2 in the setting of acute resp failure. Chest CTA and BLE Dopplers neg. we will discontinue Decadron given the Covid PCR is negative. 02/28/2020. I spoke with the sister Felisa Eli who is the power of district attorney regarding advanced directives and she instructed me that she would like to continue with aggressive care at this time. I informed her of the guarded prognosis and high mortality/morbidity and she voiced understanding. Patient currently with AC mode ventilation rate 18, tidal volume 400, FiO2 40% and a PEEP of 6. Continue antibiotics for pneumonia. ID previously consulted. Also consult neurology with regards to ALS. 02/29/2020; patient is intubated and on CPAP patient is alert and oriented. Patient has ALS. Dr. Álvarez spoke with his sister and she wants aggressive care. Continue antibiotics for pneumonia. Neurology consulted for ALS. Prognosis poor 03/01/2020; patient is intubated and on CPAP, patient is alert and oriented. I spoke with his 2 sisters about the management plan. 03/02/2020; patient is intubated and on CPAP. Patient was alert and oriented. I spoke with Dr. mohr and he thinks patient may need mechanical ventilation, likely his disease progressed. Dr. Flowers did debridement this morning. 03/03/2020; patient is intubated and on CPAP, patient was on trilogy and BiPAP at home. Patient has ALS. on spontaneous breathing trial. Patient is alert and oriented but quadriplegic. Patient has severe bilateral pneumonia and is on cefepime and Vanco, ID is following. Patient has sacral decubitus ulcer and debridement was done by Dr. Flowers and there is no osteomyelitis. 03/05. Patient still on broad-spectrum antibiotics. Status post sacral decubitus ulcer debridements-no osteomyelitis. Patient is on AC 25/400/30% PEEP 5. No blood gas results today. 03/06. Plan for tracheostomy by surgery. Still remains intubated. Labs reviewed-sodium 150. Started on free water 200 every 8hr. trend sodium. 03/07: s/p trach placement today, patient placed back on mechanical ventilation with trach. Plan to resume tube feeding with NG tube. Continue to monitor vitals, monitor BMP. 03/08: Patient noted to have distended abdomen with low urinary output. Obtain bladder scan rule out urine retention, UA and urine culture, continue to follow clinically. 03/09: Patient noted to have low blood pressure with SBP as low as 70s. Ordered for 500 mils normal saline bolus. CT abdomen showed bladder outlet obstruction, urology consulted. 03/10: placed on drake by urology o/n, improved urine outpt. cont to monitor BMP. resuded TF - cont free water with TF. wean off from vent as tolerated. 03/11: Vitals stable. cont TF, wean off from vent as tolerated. start on 1/2 NS for hypernatremia - follow BMP 03/12: wean off vent as tolerated, plan for speech eval, cont Tf for now, cont iv fluid 03/13: unable to wean off from vent, unable to do speech therapy eval. will need PEG tube, cont supportive care for now, cont NG tube feeding 03/14: consulted GI for PEg placemnet, cont supportive care. remains on vent at night 03/15: Discussed with GI, plan for PEG tube placement possibly tomorrow. Continue supportive care and wean off from vent as tolerated. Hold Lovenox dose tonight. 03/16: family didnot consent for PEG placement yesterday. I spoke with the daughter today and she is now agreeable for PEG tube. I explained the necessity of the procedure with RN to the patient also and he nodded started on tube feeding, for the procedure. will cont supportive care. planned for PEG tube placement tomorrow. 03/17: s/p PEG placement today, patient tolerated well, cont supportive care 03/18: Started on tube feeding with new PEG tube, continue to wean off vent as tolerated 03/19: cont to monitor with supportive care, wean off vent as tolerated 03/20: Continue to wean off vent as tolerated -but failing weaning trial. Still requiring vent support at night. Currently on PEG tube for tube feed. 03/21. Pt with PSV trials with FiO@ 30%, PEEP 6, PS 10. Currently on PEG tube for tube feed. 03/22/2020. Continue PSV trials per pulmonary. Continue bronchodilators. Patient tolerating tube feedings. Continue Robinul for secretion control. 03/23/2020. Continue PSV trials per pulmonary. Continue bronchodilators. Continue Scopolamine and Robinul for secretion control. Trach care/airway management. Mobility protocols for pressure ulcer prophylaxis. LTAC evaluation per case management 03/24/2020. Continue PSV trials with current settings pressure support 10, PEEP 6 and FiO2 30%. Continue bronchodilators/nebulizer. Continue Scopolamine and Robinul for secretion control. Trach care/airway management. Mobility protocols for pressure ulcer prophylaxis. LTAC evaluation per case management 03/25/2020. Pulmonary to proceed with T-piece trials today. Continue bronchodilators/nebulizer. Continue Scopolamine and Robinul for secretion control. Trach care/airway management. Mobility protocols for pressure ulcer prophylaxis. 03/26/2020. Patient currently with PSV 10/6 at FiO2 of 30%. Continue weaning and T-piece trials per protocol. Continue bronchodilators/nebulizer. Continue Scopolamine and Robinul for secretion control. Trach care/airway management. Mobility protocols for pressure ulcer prophylaxis. Continue tube feeding with aspiration precautions. 03/27/2020. Patient currently with PSV 10/6 at FiO2 of 30%. Continue weaning and T-piece trials per protocol. Continue bronchodilators/nebulizer. Continue Scopolamine and Robinul for secretion control. Trach care/airway management. Mobility protocols for pressure ulcer prophylaxis. Continue tube feeding with aspiration precautions. 03/28. Had temp 100.7F. He has been off antibiotics. Will send blood culture, ua, urine culture and chest xray. Had chest pain overnight and trop was elevated as well. Cardiology to evaluate 03/29. Has back pain due to position. He mentions his chest pain is positional. Has no other complaints. Still on mechanical ventilation 03/30. No chest pain today. Labs reviewed. Discussed chest pain with cardiology and team advised no further work up at this time. Can follow up with cardiology in the office after hospitalization 03/31. Lidocaine patch for lower back pain. 04/01. Discharge planning underway. CM notes reviewed. Discussed with daughter 04/02 - . CM trying to arrange discharge. Continue PSV trials. Discussed with patients significant other 04/04/2020; CM is working for discharge arrangement. Continue PSV trials. 04/05/2020; patient was seen and evaluated this morning and no change from baseline. Continue with PSV trials. Follow with oil and gas principal for discharge planning. 04/06/2020;patient was seen and evaluated this morning and no change from baseli ne. Continue with PSV trials. Follow with oil and gas principal for discharge planning. The high probability of a clinically significant, sudden or life threatening deterioration of the [cardiac and respiratory] system(s) required my full and direct attention, intervention and personal management. The aggregate critical care time was [32] minutes. This time is in addition to time spent performing reported procedures but includes the following: [x] Data Review and interpretation [x] Patient assessment and monitoring of vital signs [x] Documentation [x] Medication orders and management History Interval history: Patient was seen and evaluated this morning Patient is intubated, on trach Patient is awake Hospitalist Physical - Physical exam Narrative exam: Intubated, on a trach The patient appeared well nourished and normally developed. Vital signs as documented. Head exam is unremarkable. No scleral icterus . Neck is without jugular venous distension, thyromegaly, or carotid bruits. Lungs are clear to auscultation. Cardiac exam reveals regular rate and Rhythm. Abdominal exam reveals normal bowel sounds, nontender, no organomegaly. Extremities are nonedematous and both femoral and pedal pulses are normal. 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 - Constitutional Vitals: Temp Pulse Resp BP Pulse Ox 98.4 F 109 H 11 L 116/73 96 04/06/20 04:00 04/06/20 07:00 04/06/20 07:00 04/06/20 07:00 04/06/20 07:00 General appearance: Present: mild distress, other (Intubated on mechanical vent ilation) HEART Score - HEART Score Troponin: Troponin T 0.090 ng/mL (0.00-0.029) H 03/28/20 17:17 Results - Labs CBC & Chem 7: 03/30/20 14:47 03/30/20 14:47 Labs: Laboratory Last Values WBC 19.9 K/mm3 (4.5-11.0) H 03/30/20 14:47 RBC 4.01 M/mm3 (3.65-5.03) 03/30/20 14:47 Hgb 10.9 gm/dl (11.8-15.2) L 03/30/20 14:47 Hct 34.4 % (35.5-45.6) L 03/30/20 14:47 MCV 86 fl (84-94) 03/30/20 14:47 MCH 27 pg (28-32) L 03/30/20 14:47 MCHC 32 % (32-34) 03/30/20 14:47 RDW 16.5 % (13.2-15.2) H 03/30/20 14:47 Plt Count 441 K/mm3 (140-440) H 03/30/20 14:47 Lymph % (Auto) 6.4 % (13.4-35.0) L 03/30/20 14:47 [place] % (Auto) 7.2 % (0.0-7.3) 03/30/20 14:47 Eos % (Auto) 0.1 % (0.0-4.3) 03/30/20 14:47 Baso % (Auto) 0.2 % (0.0-1.8) 03/30/20 14:47 Lymph # (Auto) 1.3 K/mm3 (1.2-5.4) 03/30/20 14:47 [place] # (Auto) 1.4 K/mm3 (0.0-0.8) H 03/30/20 14:47 Eos # (Auto) 0.0 K/mm3 (0.0-0.4) 03/30/20 14:47 Baso # (Auto) 0.0 K/mm3 (0.0-0.1) 03/30/20 14:47 Add Manual Diff Complete 03/28/20 10:28 Total Counted 100 03/28/20 10:28 Seg Neutrophils % 86.1 % (40.0-70.0) H 03/30/20 14:47 Seg Neuts % (Manual) 89.0 % (40.0-70.0) H 03/28/20 10:28 Band Neutrophils % 0 % 03/28/20 10:28 Lymphocytes % (Manual) 5.0 % (13.4-35.0) L 03/28/20 10:28 Reactive Lymphs % (Man) 0 % 03/28/20 10:28 Monocytes % (Manual) 5.0 % (0.0-7.3) 03/28/20 10:28 Eosinophils % (Manual) 0 % (0.0-4.3) 03/28/20 10:28 Basophils % (Manual) 1.0 % (0.0-1.8) 03/28/20 10:28 Metamyelocytes % 0 % 03/28/20 10:28 Myelocytes % 0 % 03/28/20 10:28 Promyelocytes % 0 % 03/28/20 10:28 Blast Cells % 0 % 03/28/20 10:28 Nucleated RBC % Not Reportable 03/28/20 10:28 Seg Neutrophils # 17.1 K/mm3 (1.8-7.7) H 03/30/20 14:47 Seg Neutrophils # Man 21.0 K/mm3 (1.8-7.7) H 03/28/20 10:28 Band Neutrophils # 0.0 K/mm3 03/28/20 10:28 Lymphocytes # (Manual) 1.2 K/mm3 (1.2-5.4) 03/28/20 10:28 Abs React Lymphs (Man) 0.0 K/mm3 03/28/20 10:28 Monocytes # (Manual) 1.2 K/mm3 (0.0-0.8) H 03/28/20 10:28 Eosinophils # (Manual) 0.0 K/mm3 (0.0-0.4) 03/28/20 10:28 Basophils # (Manual) 0.2 K/mm3 (0.0-0.1) H 03/28/20 10:28 Metamyelocytes # 0.0 K/mm3 03/28/20 10:28 Myelocytes # 0.0 K/mm3 03/28/20 10:28 Promyelocytes # 0.0 K/mm3 03/28/20 10:28 Blast Cells # 0.0 K/mm3 03/28/20 10:28 WBC Morphology Not Reportable 03/28/20 10:28 Hypersegmented Neuts Not Reportable 03/28/20 10:28 Hyposegmented Neuts Not Reportable 03/28/20 10:28 Hypogranular Neuts Not Reportable 03/28/20 10:28 Smudge Cells Not Reportable 03/28/20 10:28 Toxic Granulation 1+ 03/28/20 10:28 Toxic Vacuolation Not Reportable 03/28/20 10:28 Dohle Bodies Not Reportable 03/28/20 10:28 Pelger-Huet Anomaly Not Reportable 03/28/20 10:28 Robert Rods Not Reportable 03/28/20 10:28 Platelet Estimate Consistent w auto 03/28/20 10:28 Clumped Platelets Not Reportable 03/28/20 10:28 Plt Clumps, EDTA Not Reportable 03/28/20 10:28 Large Platelets Not Reportable 03/28/20 10:28 Giant Platelets Not Reportable 03/28/20 10:28 Platelet Satelliting Not Reportable 03/28/20 10:28 Plt Morphology Comment Not Reportable 03/28/20 10:28 RBC Morphology Not Reportable 03/28/20 10:28 Dimorphic RBCs Not Reportable 03/28/20 10:28 Polychromasia Not Reportable 03/28/20 10:28 Hypochromasia Not Reportable 03/28/20 10:28 Poikilocytosis Not Reportable 03/28/20 10:28 Anisocytosis 1+ 03/28/20 10:28 Microcytosis Not Reportable 03/28/20 10:28 Macrocytosis Not Reportable 03/28/20 10:28 Spherocytes Not Reportable 03/28/20 10:28 Pappenheimer Bodies Not Reportable 03/28/20 10:28 Sickle Cells Not Reportable 03/28/20 10:28 Target Cells Not Reportable 03/28/20 10:28 Tear Drop Cells Not Reportable 03/28/20 10:28 Ovalocytes Not Reportable 03/28/20 10:28 Stomatocytes Few 03/17/20 04:40 Helmet Cells Not Reportable 03/28/20 10:28 [place] Bodies Not Reportable 03/28/20 10:28 [place] Rings Not Reportable 03/28/20 10:28 Farrell Cells Not Reportable 03/28/20 10:28 Bite Cells Not Reportable 03/28/20 10:28 Crenated Cell Not Reportable 03/28/20 10:28 Elliptocytes Not Reportable 03/28/20 10:28 Acanthocytes (Spur) Not Reportable 03/28/20 10:28 Rouleaux Not Reportable 03/28/20 10:28 Hemoglobin C Crystals Not Reportable 03/28/20 10:28 Schistocytes Not Reportable 03/28/20 10:28 Malaria parasites Not Reportable 03/28/20 10:28 [place] Bodies Not Reportable 03/28/20 10:28 Hem Pathologist Commnt No 03/28/20 10:28 PT 15.6 Sec. (12.2-14.9) H 02/24/20 09:19 INR 1.21 (0.87-1.13) H 02/24/20 09:19 APTT 25.4 Sec. (24.2-36.6) 02/24/20 09:19 D-Dimer 1311.96 ng/mlDDU (0-234) H 02/24/20 09:19 ABG pH 7.371 (7.320-7.450) 03/08/20 12:34 POC ABG pCO2 63.1 mmHg (32.0-48.0) H 03/08/20 12:34 ABG pCO2 60.1 mm Hg 03/06/20 04:34 POC ABG pO2 90.5 mmHg (83-108) 03/08/20 12:34 ABG pO2 88.6 mm Hg (80.0-90.0) 03/06/20 04:34 POC ABG HCO3 35.7 03/08/20 12:34 ABG HCO3 37.9 mmol/L (20.0-26.0) H 03/06/20 04:34 ABG O2 Saturation 97.0 % (95.0-99.0) 03/06/20 04:34 ABG O2 Content 14.3 (0.0-44) 03/06/20 04:34 POC ABG Base Excess 8.7 03/08/20 12:34 ABG Base Excess 11.4 mmol/L (-2.0-3.0) H 03/06/20 04:34 ABG Hemoglobin 10.9 (12.0-17.5) L 03/08/20 12:34 ABG Oxyhemoglobin 95.9 (94-98) 03/08/20 12:34 ABG Carboxyhemoglobin 1.7 % (0.0-5.0) 03/06/20 04:34 ABG Methemoglobin 0.3 (0.0-1.5) 03/08/20 12:34 ABG Sodium 143.6 mmol/L (136.0-145.0) 03/08/20 12:34 ABG Potassium 3.8 mmol/L (3.40-4.50) 03/08/20 12:34 ABG Chloride 102.0 mmol/L (98-107) 03/08/20 12:34 ABG Glucose 176 mg/dL (65-95) H 03/08/20 12:34 Oxyhemoglobin 94.7 % (95.0-99.0) L 03/06/20 04:34 Carboxyhemoglobin 0.7 (0.5-1.5) 03/08/20 12:34 FiO2 30 03/08/20 12:34 Sodium 133 mmol/L (137-145) L 03/30/20 14:47 Potassium 4.7 mmol/L (3.6-5.0) 03/30/20 14:47 Chloride 94.6 mmol/L (98-107) L 03/30/20 14:47 Carbon Dioxide 33 mmol/L (22-30) H 03/30/20 14:47 Anion Gap 10 mmol/L 03/30/20 14:47 BUN 16 mg/dL (9-20) 03/30/20 14:47 Creatinine < 0.2 mg/dL (0.8-1.3) L 03/30/20 14:47 Estimated GFR > 60 ml/min 03/30/20 14:47 BUN/Creatinine Ratio 80 % 03/30/20 14:47 Glucose 194 mg/dL (75-100) H 03/30/20 14:47 POC Glucose 131 mg/dL (70-105) H 04/06/20 08:24 Lactic Acid 1.00 mmol/L (0.7-2.0) 02/24/20 12:07 Calcium 9.1 mg/dL (8.4-10.2) 03/30/20 14:47 Phosphorus 3.30 mg/dL (2.5-4.5) 03/29/20 14:35 Magnesium 2.00 mg/dL (1.7-2.3) 03/29/20 14:35 Ferritin 1715.0 ng/mL (30.0-300.0) H 02/24/20 10:01 Total Bilirubin 0.40 mg/dL (0.1-1.2) 03/30/20 14:47 AST 22 units/L (5-40) 03/30/20 14:47 ALT 16 units/L (7-56) 03/30/20 14:47 Alkaline Phosphatase 78 units/L (35-129) 03/30/20 14:47 Lactate Dehydrogenase 303 units/L (91-180) H 02/24/20 09:19 Total Creatine Kinase 47 units/L (55-170) L 03/28/20 17:17 CK-MB (CK-2) 2.2 ng/mL (0.0-4.0) 03/28/20 17:17 CK-MB (CK-2) Rel Index 4.6 (0-4) H 03/28/20 17:17 Troponin T 0.090 ng/mL (0.00-0.029) H 03/28/20 17:17 C-Reactive Protein 4.70 mg/dL (0.00-1.30) H 02/28/20 11:05 NT-Pro-B Natriuret Pep 48.30 pg/mL (0-900) 02/24/20 09:19 Total Protein 7.7 g/dL (6.3-8.2) 03/30/20 14:47 Albumin 2.8 g/dL (3.9-5) L 03/30/20 14:47 Albumin/Globulin Ratio 0.6 % 03/30/20 14:47 Prealbumin 0.090 g/L (0.200-0.400) L 02/28/20 12:54 Triglycerides 34 mg/dL (2-149) 03/22/20 18:00 Cholesterol 104 mg/dL (50-199) 03/22/20 18:00 LDL Cholesterol Direct 54 mg/dL (50-130) 03/22/20 18:00 HDL Cholesterol 40 mg/dL (40-59) 03/22/20 18:00 Cholesterol/HDL Ratio 2.60 % 03/22/20 18:00 Procalcitonin < 0.05 ng/mL (<0.15) 03/28/20 17:12 Arterial Blood Glucose 176 mg/dL (65-95) H 03/08/20 12:34 Arterial Blood Ionized Calcium 4.5 mg/dL (4.6-5.3) L 03/08/20 12:34 Urine Color Yellow (Yellow) 03/28/20 11:36 Urine Turbidity Hazy (Clear) 03/28/20 11:36 Urine pH 5.0 (5.0-7.0) 03/28/20 11:36 Ur Specific [place] 1.026 (1.003-1.030) 03/28/20 11:36 Urine Protein 100 mg/dl mg/dL (Negative) 03/28/20 11:36 Urine Glucose (UA) Neg mg/dL (Negative) 03/28/20 11:36 Urine Ketones Neg mg/dL (Negative) 03/28/20 11:36 Urine Blood Neg (Negative) 03/28/20 11:36 Urine Nitrite Neg (Negative) 03/28/20 11:36 Urine Bilirubin Neg (Negative) 03/28/20 11:36 Urine Urobilinogen 4.0 mg/dL (<2.0) 03/28/20 11:36 Ur Leukocyte Esterase Mod (Negative) 03/28/20 11:36 Urine WBC (Auto) 39.0 /HPF (0.0-6.0) H 03/28/20 11:36 Urine RBC (Auto) 16.0 /HPF (0.0-6.0) 03/28/20 11:36 U Epithel Cells (Auto) < 1.0 /HPF (0-13.0) 03/08/20 08:57 Urine Bacteria (Auto) 2+ /HPF (Negative) 03/28/20 11:36 Urine Mucus 3+ /HPF 03/28/20 11:36 Urine Yeast (Budding) 2+ /HPF 03/28/20 11:36 Vancomycin Trough 8.0 ug/mL (5.0-20.0) 03/04/20 08:59 Coronavirus (PCR) Negative (Negative) 02/25/20 09:03 - Diagnostic Impressions Diagnostic Impressions: Echocardiogram 02/26/20 10:41 Transthoracic Echocardiogram Indication: Elevated Trop BP: 116/75 HR: 85 Conclusions *Global left ventricular wall motion and contractility are within normal limits. *The estimated ejection fraction is 50-55%. *Abnormal left ventricular diastolic filling is observed, consistent with impaired relaxation. *There is no pericardial effusion. Findings Left Ventricle: The left ventricular chamber size is normal. Global left ventricular wall motion and contractility are within normal limits. Global left ventricular systolic function is normal. The estimated ejection fraction is 50-55%. Abnormal left ventricular diastolic filling is observed, consistent with impaired relaxation. Left Atrium: The left atrial chamber size is normal. Right Ventricle: The right ventricular cavity size is normal. Right Atrium: The right atrial cavity size is normal. Aortic Valve: Mild aortic leaflet calcification is visualized. There is no evidence of aortic regurgitation. Mitral Valve: The mitral valve leaflets are mildly thickened. There is no evidence of mitral regurgitation. Tricuspid Valve: The tricuspid valve leaflets are normal. There is trace tricuspid regurgitation. The right ventricular systolic pressure is calculated at 29 mmHg. Pulmonic Valve: The pulmonic valve is not well visualized. Pericardium: There is no pericardial effusion. Aorta: The aorta appears normal. Venous: The inferior vena cava is dilated. There is less than 50% respiratory change in the inferior vena cava dimension. Measurements Chambers 2D Name Value Normal Range IVSd (2D) 0.97 cm (0.6 - 1.1) LVPWd (2D) 0.93 cm (0.6 - 1.1) LVIDd (2D) 4 cm (3.7 - 5.6) LVIDs (2D) 2.73 cm (2 - 3.8) LV FS (2D) 31.67 % - EF Teichholz (2D) 60.23 % - Ao root diameter (2D) 3.51 cm (2 - 3.7) Volumes/Mass Name Value Normal Range LA ESV SP 4CH (A/L) 8.43 ml - LA ESV SP 2CH (A/L) 18.89 ml - LA ESV BP (A/L) 13.02 ml - LA ESV BP (A/L) index 8.8 ml/m2 - LA ESV SP 4CH (MOD) 7.22 ml - LA ESV SP 2CH (MOD) 18.15 ml - LA ESV BP (MOD) 11.47 ml - LA ESV BP (MOD) index 7.75 ml/m2 - Diastolic/Systolic Function Name Value Normal Range MV E-wave Vmax 0.51 m/sec - MV deceleration time 180.22 msec - MV A-wave Vmax 0.62 m/sec - MV E:A ratio 0.82 ratio - Aortic Valve Name Value Normal Range AV Vmax 1.17 m/sec - AV VTI 19.71 cm - AV peak gradient 5.44 mmHg - AV mean gradient 3.38 mmHg - LVOT diameter 2.26 cm - LVOT Vmax 0.89 m/sec - LVOT VTI 13.72 cm - LVOT peak gradient 3.17 mmHg - LVOT mean gradient 1.67 mmHg - SV LVOT 55.03 ml - SHARAD (continuity Vmax) 3.06 cm2 - SHARAD (continuity VTI) 2.79 cm2 - Tricuspid Valve Name Value Normal Range TR Vmax 2.3 m/sec - TR peak gradient 21 mmHg - RAP 8 mmHg - RVSP 29 mmHg - IVC diameter 2.59 cm (1.2 - 2.3) Pulmonic Valve/Qp:Qs Name Value Normal Range PV acceleration time 68.51 msec - Drake/IV: Voiding Method Indwelling Catheter IV Catheter Type [Left Hand] Peripheral IV IV Catheter Type [Right Hand] Peripheral IV IV Catheter Type [Left Wrist] Peripheral IV IV Catheter Type [Right Peripheral IV Forearm] IV Catheter Type [Right Triple Lumen Cath Internal Jugular] IV Catheter Type [Left Forearm INT / Saline Lock ] IV Catheter Type [Right Triple Lumen Cath Femoral] IV Catheter Type [Right INT / Saline Lock Antecubital] Active Medications - Current Medications Current Medications: Generic Name Dose Route Start Last Admin Trade Name Freq PRN Reason Stop Dose Admin Acetaminophen 650 mg 02/24/20 15:13 03/08/20 00:10 Tylenol PO 650 mg Q4H PRN Administration Pain, Mild (1-3) Albuterol 2.5 mg 02/24/20 15:13 Proventil IH Q4HRT PRN Shortness Of Breath Alprazolam 0.5 mg 03/30/20 14:19 04/06/20 04:30 Xanax PO 0.5 mg Q8H PRN Administration Anxiety Lipase/Protease/Amylase 1 each 02/26/20 11:[address] 10,500 Unit FEEDTUBE PRN PRN For Clogged Feeding Tube Baclofen 10 mg 04/03/20 12:00 04/05/20 21:54 Lioresal PO 10 mg BID ALISA Administration Bisacodyl 10 mg 03/12/20 18:00 03/15/20 17:50 Dulcolax [place] 10 mg QDAY PRN Administration Bowel Movement Docusate Sodium 100 mg 04/03/20 12:00 04/05/20 21:53 Colace FEEDTUBE 100 mg BID ALISA Administration Enoxaparin Sodium 40 mg 03/20/20 22:00 04/05/20 21:55 Enoxaparin SUB-Q 40 mg QDAY@2200 ALISA Administration Protocol Glycopyrrolate 2 mg 03/26/20 08:00 04/05/20 20:16 Robinul PO 2 mg TID ALISA Administration Lansoprazole 30 mg 02/28/20 10:00 04/05/20 10:33 Prevacid Solutab FEEDTUBE 30 mg QDAY ALISA Administration Lidocaine 1 each 03/31/20 10:00 04/05/20 09:59 Lidoderm 5% TD 1 each QDAY ALISA Administration Metoprolol Tartrate 12.5 mg 02/24/20 22:00 04/05/20 21:57 Metoprolol PO Not Given BID ALISA Morphine Sulfate 2 mg 02/29/20 16:42 04/06/20 04:30 Morphine IV 2 mg Q4H PRN Administration Pain, Moderate (4-6) Pregabalin 150 mg 04/03/20 12:00 04/05/20 21:53 Pregabalin PO 150 mg BID ALISA Administration Scopolamine 1 each 03/03/20 14:00 04/05/20 12:19 Transderm-Scop TD 1 each Q3D AILSA Administration Senna 17.2 mg 04/03/20 22:00 04/05/20 21:53 Senokot PO 17.2 mg QHS ALISA Administration Simple Syrup 15 ml 02/26/20 11:16 Simple Syrup FEEDTUBE PRN PRN Hypoglycemia Simple Syrup 30 ml 02/26/20 11:16 Simple Syrup FEEDTUBE PRN PRN Hypoglycemia Sodium Bicarbonate 325 mg 02/26/20 11:16 Sodium Bicarbonate FEEDTUBE PRN PRN For Clogged Feeding Tube Sodium Hypochlorite 1 applic 03/31/20 13:00 04/05/20 21:58 Dakin's Half Strength TP 1 applicatio BID ALISA Administration Tamsulosin HCl 0.4 mg 03/09/20 18:00 04/05/20 10:31 Flomax PO 0.4 mg QDAY ALISA Administration Zolpidem Tartrate 10 mg 03/31/20 20:15 04/05/20 21:54 Ambien PO 10 mg QHS PRN Administration Sleep Nutrition/Malnutrition Assess - Dietary Evaluation Nutrition/Malnutrition Findings: Nutrition Notes Start: 02/26/20 10:40 Freq: Status: Active Protocol: Document 04/04/20 12:26 AB (Rec: 04/04/20 12:35 AB [id number]) Co-Sign 04/04/20 12:26 LM Nutrition Notes Initial or Follow up Reassessment Current Diagnosis Decubitus(Pressure Ulcer), Sepsis,Respiratory Failure Other Pertinent Diagnosis COVID-19 (-), ALS, pneumonia, Hip/buttock PU Current Diet Vital AF 1.2 at 75ml/hr (goal rate) Labs/Tests Reviewed Pertinent Medications Reviewed Height 6 ft Weight 65.8 kg [place] Body Weight (kg) 80.90 BMI 19.6 Weight Status Appropriate Subjective/Other Information F/U for TF tolerance. TF is running at goal and pt is tolerating it. Pt had BM over night, per nurse. Percent of energy/protein needs met: 100%/100% Burn Absent Trauma Absent GI Symptoms None Skin Integrity/Comment Pressure Ulcer Stage 2 Current % PO Negligible Minimum of two criteria Yes Body Fat Depletion Mild depletion (non-severe) Muscle Mass Mild Depletion (non-severe) Reduced [employer] Strength Measurably Reduced (severe) #3 Nutrition Diagnosis Malnutrition Diagnosis Progress(for reassessment Continues documentation) #2 Nutrition Diagnosis Inadequate oral intake Diagnosis Progress(for reassessment Continues documentation) #1 Nutrition Diagnosis Increased nutrient needs ( specify in comment below) Diagnosis Progress(for reassessment Continues documentation) Is patient on ventilator? Yes Is Patient Ambulatory and/or Out of Bed No REE-([facility]-confined to bed) 1818.072 Kcal/Kg value to use for calculation 35 Approximate Energy Requirements Using 2303 kcal/Kg Calculation Used for Recommendations Kcal/kg Additional Notes Protein needs: 88-147 g (1.2-2 g/ kg ABW) Fluid: 1ml/kcal Nutrition Intervention Change Diet Order: Continue TF Nutrition Support: Vital AF 1.2 at 75ml/hr. Flush 200ml q4h For hyponatremia, flush 150 mL q4h Kcal 2,160 Protein (gm) 135 Fluid (mL) 1,460 Add Supplement/Snack (indicate name/kcal Will BID /protein ) Provides kCal: 190 Provides Protein (gm) 5 Goal #1 Meet at least 80% of energy and protein needs via TF Goal #2 Wound healing Anticipated Discharge Needs: Unable to determine at this time Follow-Up By: 04/11/20 Additional Comments F/U for TF tolerance
[2020-04-06] MEDS: GLYCOPYRROLATE 1 MG TAB PO SCH ×3 (09:05→22:06)
[2020-04-06] MEDS: METOPROLOL TARTRATE 25 MG TAB PO SCH ×2 (09:05→22:07)
[2020-04-06] MEDS: DOCUSATE SODIUM 100 MG/10 ML ORAL LIQD FEEDTUBE SCH ×2 (09:05→22:06)
[2020-04-06] MEDS: PREGABALIN 75 MG CAP PO SCH ×2 (09:05→22:08)
[2020-04-06] MEDS: TAMSULOSIN 0.4 MG CAP PO SCH (09:06)
[2020-04-06] MEDS: LIDOCAINE 5% 1 EACH PATCH TD SCH (09:06)
[2020-04-06] MEDS: SODIUM HYPOCHLORITE, DAKIN'S 1/2 STRENGTH (0.25%) 473 ML TOPICAL SOLN TP SCH ×2 (09:06→22:06)
[2020-04-06] MEDS: BACLOFEN 10 MG TAB PO SCH ×2 (09:06→22:07)
[2020-04-06] MEDS: LANSOPRAZOLE 30 MG SOLUTAB FEEDTUBE SCH (09:06)
--- NOTE | 2020-04-06 17:25 | Progress Note ---
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 Respiratory Failure s/p trach Severe Sepsis with Shock Bilateral Pneumonia (Possible aspiration) History of ALS on Trilogy Oropharyngeal Dysphagia s/p PEG Acute toxic metabolic encephalopathy-resolved Elevated D-dimer Elevated troponin possibly type 2 ischemia Leukocytsois Continue to trend WCC and temperature curve Continue Ambien for sleep at night Continue all supportive care Discharge planning is ongoing - continue daytime PSV as tolerated -He is not tolerating ATP trials and is vent dependant. - ABG, CXR as clinically indicated - continue Robinul & scopolamine for secretion control - Keep K at 4, Mg at 2 and Phos at 2.5 to optimize respiratory muscle function - wound care per RN/WCN, off loading, frequent turning, mobility per facility protocol - wean supplemental oxygen for target O2 sats > 92% - VAP bundle addressed, aspiration precautions, HOB >40 - continue lung protective strategies - continue bronchodilators with pulmonary hygiene per RT - s/p empiric anti-infectives per ID recs (Rocephin and Zithromax) - enteral nutrition at goal rate as tolerated - accuchecks with glycemic control per SSI (While critically ill target blood glucose of 140-180 mg/dL; avoid hypoglycemia) - avoid nephrotoxins, renal dose all medications - avoid benzodiazepines, reduce the possibility of delirium - prn analgesia per CPOT score - Maintenance of sleep-wake cycle, avoid delirium -Continue stress ulcer and VTE prophylaxis (Famotidine and Enoxaparin) -Reardon in place for urinary retention and sacral decubitus ulcer - PT/OT/ROM exercises - Monitor hemodynamics closely - continue other care per attending / other consultants - discharge planning ongoing concurrently CONDITION: FAIR PROGNOSIS: GUARDED CODE STATUS: FULL CODE Subjective Date of service: 04/06/20 Principal diagnosis: Ac on Ch Hypercapnic & hypoxemic Resp Failure; Severe Sepsis; Jamar PNA; ALS Interval history: Patient is seen today for: Acute on Chronic Hypercapnic & hypoxemic Respiratory Failure; Severe Sepsis with Shock; Bilateral Pneumonia (Possible aspiration); History of ALS on Trilogy; Acute toxic metabolic encephalopathy Seen and examined at bedside; 24hour events reviewed; nursing and respiratory care staff consulted; no adverse overnight events reported to me; resting in bed; remains on MVS; s/p trach and PEG Tolerating tube feedings. Tolerating PSV at the bedside, full support at night No fevers,no vomiting. Slept well last night. Objective Vital Signs - 12hr 04/06/20 04/06/20 04/06/20 06:00 07:00 08:00 Temperature 98.3 F Pulse Rate 111 H 109 H 120 H Pulse Rate [ 119 H From Monitor] Respiratory 18 11 L 19 Rate Blood Pressure 102/74 116/73 108/71 O2 Sat by Pulse 95 96 Oximetry 04/06/20 04/06/20 04/06/20 09:00 09:05 10:00 Temperature Pulse Rate 113 H 120 H 102 H Pulse Rate [ From Monitor] Respiratory 17 19 Rate Blood Pressure 112/72 112/72 103/69 O2 Sat by Pulse 95 97 Oximetry 04/06/20 04/06/20 04/06/20 10:28 10:44 11:00 Temperature Pulse Rate 104 H 106 H 107 H Pulse Rate [ From Monitor] Respiratory 25 H Rate Blood Pressure 103/69 103/69 110/73 O2 Sat by Pulse 97 97 95 Oximetry 04/06/20 04/06/20 04/06/20 12:00 13:00 14:00 Temperature 98.5 F Pulse Rate 103 H 114 H 115 H Pulse Rate [ 115 H From Monitor] Respiratory 19 32 H 32 H Rate Blood Pressure 111/74 122/81 122/81 O2 Sat by Pulse 92 95 Oximetry 04/06/20 04/06/20 04/06/20 14:52 15:00 16:00 Temperature 98.3 F Pulse Rate 118 H 120 H Pulse Rate [ From Monitor] Respiratory 31 H 28 H Rate Blood Pressure 122/80 113/77 O2 Sat by Pulse 97 100 Oximetry Constitutional: no acute distress, other (thin middle aged male with normal respiratory effort at rest on MVS) Eyes: non-icteric ENT: oropharynx moist, other (S/P Tracheostomy) Neck: supple, no lymphadenopathy, no JVD Effort: mildly labored Ascultation: Bilateral: clear, diminished breath sounds, wheezes, rhonchi Percussion: Bilateral: not dull Cardiovascular: regular rate and rhythm, other (S1,S2, no murmurs) Gastrointestinal: normoactive bowel sounds, soft, non-tender, non-distended, other (+ distended but non tender suprapubis) Integumentary: normal, decubitus ulcer (sacral / gluteal) Extremities: no cyanosis, no edema, pulses normal, other (atrophic looking limbs ) Neurologic: pupils equal and round, other (motor strength in extremities 1-2/5, awake, alert, mouths words to make needs known) Psychiatric: depressed CBC and BMP: 03/30/20 14:47 03/30/20 14:47 ABG, PT/INR, D-dimer: ABG ABG pH 7.371 (7.320-7.450) 03/08/20 12:34 POC ABG pCO2 63.1 mmHg (32.0-48.0) H 03/08/20 12:34 ABG pCO2 60.1 mm Hg 03/06/20 04:34 POC ABG pO2 90.5 mmHg (83-108) 03/08/20 12:34 ABG pO2 88.6 mm Hg (80.0-90.0) 03/06/20 04:34 POC ABG HCO3 35.7 03/08/20 12:34 ABG O2 Saturation 97.0 % (95.0-99.0) 03/06/20 04:34 PT/INR, D-dimer PT 15.6 Sec. (12.2-14.9) H 02/24/20 09:19 INR 1.21 (0.87-1.13) H 02/24/20 09:19 D-Dimer 1311.96 ng/mlDDU (0-234) H 02/24/20 09:19 Abnormal lab findings: Abnormal Labs 02/24/20 02/24/20 02/24/20 09:19 09:19 09:19 WBC 20.2 H RBC 5.05 H Hgb Hct MCV MCH RDW 15.3 H Plt Count Lymph % (Auto) Lymph # (Auto) [place] # (Auto) Seg Neutrophils % Seg Neuts % (Manual) 86.0 H Lymphocytes % (Manual) 1.0 L Monocytes % (Manual) Basophils % (Manual) Seg Neutrophils # Seg Neutrophils # Man 17.4 H Lymphocytes # (Manual) 0.2 L Monocytes # (Manual) Eosinophils # (Manual) Basophils # (Manual) PT 15.6 H INR 1.21 H D-Dimer 1311.96 H ABG pH POC ABG pCO2 POC ABG pO2 ABG pO2 ABG HCO3 ABG O2 Saturation ABG Base Excess ABG Hemoglobin ABG Oxyhemoglobin ABG Potassium ABG Glucose Oxyhemoglobin Carboxyhemoglobin Sodium 135 L Potassium 3.2 L Chloride 92.2 L Carbon Dioxide BUN 6 L Creatinine < 0.2 L Glucose 124 H POC Glucose Calcium Ferritin Total Bilirubin 2.30 H Alkaline Phosphatase 132 H Lactate Dehydrogenase Total Creatine Kinase CK-MB (CK-2) Rel Index Troponin T 0.080 H C-Reactive Protein Total Protein Albumin 3.6 L Prealbumin LDL Cholesterol Direct 41 L Arterial Blood Glucose Arterial Blood Ionized Calcium Urine WBC (Auto) 02/24/20 02/24/20 02/24/20 09:19 09:58 10:01 WBC RBC Hgb Hct MCV MCH RDW Plt Count Lymph % (Auto) Lymph # (Auto) [place] # (Auto) Seg Neutrophils % Seg Neuts % (Manual) Lymphocytes % (Manual) Monocytes % (Manual) Basophils % (Manual) Seg Neutrophils # Seg Neutrophils # Man Lymphocytes # (Manual) Monocytes # (Manual) Eosinophils # (Manual) Basophils # (Manual) PT INR D-Dimer ABG pH 7.176 L* POC ABG pCO2 POC ABG pO2 ABG pO2 91.2 H ABG HCO3 ABG O2 Saturation ABG Base Excess -4.6 L ABG Hemoglobin ABG Oxyhemoglobin ABG Potassium ABG Glucose Oxyhemoglobin 92.6 L Carboxyhemoglobin Sodium Potassium Chloride Carbon Dioxide BUN Creatinine Glucose POC Glucose Calcium Ferritin 1715.0 H Total Bilirubin Alkaline Phosphatase Lactate Dehydrogenase 303 H Total Creatine Kinase CK-MB (CK-2) Rel Index Troponin T C-Reactive Protein 26.10 H Total Protein Albumin Prealbumin LDL Cholesterol Direct Arterial Blood Glucose Arterial Blood Ionized Calcium Urine WBC (Auto) 02/24/20 02/24/20 02/24/20 11:52 13:45 19:35 WBC RBC Hgb Hct MCV MCH RDW Plt Count Lymph % (Auto) Lymph # (Auto) [place] # (Auto) Seg Neutrophils % Seg Neuts % (Manual) Lymphocytes % (Manual) Monocytes % (Manual) Basophils % (Manual) Seg Neutrophils # Seg Neutrophils # Man Lymphocytes # (Manual) Monocytes # (Manual) Eosinophils # (Manual) Basophils # (Manual) PT INR D-Dimer ABG pH 7.051 L* 7.300 L POC ABG pCO2 POC ABG pO2 ABG pO2 94.7 H 75.1 L ABG HCO3 18.0 L ABG O2 Saturation 93.5 L ABG Base Excess -6.8 L -7.8 L ABG Hemoglobin 13.2 L 11.9 L ABG Oxyhemoglobin ABG Potassium ABG Glucose Oxyhemoglobin 91.0 L 92.7 L Carboxyhemoglobin Sodium Potassium Chloride Carbon Dioxide BUN Creatinine Glucose POC Glucose Calcium Ferritin Total Bilirubin Alkaline Phosphatase Lactate Dehydrogenase Total Creatine Kinase CK-MB (CK-2) Rel Index Troponin T 0.034 H D C-Reactive Protein Total Protein Albumin Prealbumin LDL Cholesterol Direct Arterial Blood Glucose Arterial Blood Ionized Calcium Urine WBC (Auto) 02/25/20 02/25/20 02/25/20 04:00 04:00 12:26 WBC 22.9 H RBC Hgb Hct MCV 83 L MCH 27 L RDW Plt Count 468 H Lymph % (Auto) Lymph # (Auto) [place] # (Auto) Seg Neutrophils % Seg Neuts % (Manual) 89.0 H Lymphocytes % (Manual) 7.0 L Monocytes % (Manual) Basophils % (Manual) Seg Neutrophils # Seg Neutrophils # Man 20.4 H Lymphocytes # (Manual) Monocytes # (Manual) Eosinophils # (Manual) Basophils # (Manual) PT INR D-Dimer ABG pH POC ABG pCO2 POC ABG pO2 ABG pO2 ABG HCO3 ABG O2 Saturation ABG Base Excess ABG Hemoglobin ABG Oxyhemoglobin ABG Potassium 2.6 L ABG Glucose 142 H Oxyhemoglobin Carboxyhemoglobin Sodium Potassium 3.2 L Chloride Carbon Dioxide 18 L BUN Creatinine 0.2 L Glucose 114 H POC Glucose Calcium Ferritin Total Bilirubin Alkaline Phosphatase Lactate Dehydrogenase Total Creatine Kinase CK-MB (CK-2) Rel Index Troponin T C-Reactive Protein Total Protein Albumin 3.5 L Prealbumin LDL Cholesterol Direct Arterial Blood Glucose 142 H Arterial Blood Ionized Calcium Urine WBC (Auto) 02/26/20 02/26/20 02/26/20 15:58 17:00 23:43 WBC RBC Hgb Hct MCV MCH RDW Plt Count Lymph % (Auto) Lymph # (Auto) [place] # (Auto) Seg Neutrophils % Seg Neuts % (Manual) Lymphocytes % (Manual) Monocytes % (Manual) Basophils % (Manual) Seg Neutrophils # Seg Neutrophils # Man Lymphocytes # (Manual) Monocytes # (Manual) Eosinophils # (Manual) Basophils # (Manual) PT INR D-Dimer ABG pH 7.502 H POC ABG pCO2 POC ABG pO2 213.6 H ABG pO2 ABG HCO3 ABG O2 Saturation ABG Base Excess ABG Hemoglobin ABG Oxyhemoglobin 99.2 H ABG Potassium 2.9 L ABG Glucose 160 H Oxyhemoglobin Carboxyhemoglobin 0.4 L Sodium Potassium Chloride Carbon Dioxide BUN Creatinine Glucose POC Glucose 189 H 120 H Calcium Ferritin Total Bilirubin Alkaline Phosphatase Lactate Dehydrogenase Total Creatine Kinase CK-MB (CK-2) Rel Index Troponin T C-Reactive Protein Total Protein Albumin Prealbumin LDL Cholesterol Direct Arterial Blood Glucose 160 H Arterial Blood Ionized Calcium 4.5 L Urine WBC (Auto) 02/27/20 02/27/20 02/27/20 05:00 07:04 17:45 WBC RBC Hgb Hct MCV MCH RDW Plt Count Lymph % (Auto) Lymph # (Auto) [place] # (Auto) Seg Neutrophils % Seg Neuts % (Manual) Lymphocytes % (Manual) Monocytes % (Manual) Basophils % (Manual) Seg Neutrophils # Seg Neutrophils # Man Lymphocytes # (Manual) Monocytes # (Manual) Eosinophils # (Manual) Basophils # (Manual) PT INR D-Dimer ABG pH 7.524 H POC ABG pCO2 POC ABG pO2 ABG pO2 ABG HCO3 ABG O2 Saturation ABG Base Excess ABG Hemoglobin ABG Oxyhemoglobin ABG Potassium 3.0 L ABG Glucose 143 H Oxyhemoglobin Carboxyhemoglobin Sodium Potassium Chloride Carbon Dioxide BUN Creatinine Glucose POC Glucose 154 H 175 H Calcium Ferritin Total Bilirubin Alkaline Phosphatase Lactate Dehydrogenase Total Creatine Kinase CK-MB (CK-2) Rel Index Troponin T C-Reactive Protein Total Protein Albumin Prealbumin LDL Cholesterol Direct Arterial Blood Glucose 143 H Arterial Blood Ionized Calcium Urine WBC (Auto) 02/27/20 02/28/20 02/28/20 Unknown 00:21 04:15 WBC 18.7 H RBC Hgb Hct MCV MCH RDW Plt Count Lymph % (Auto) 8.7 L Lymph # (Auto) [place] # (Auto) 1.2 H Seg Neutrophils % 84.6 H Seg Neuts % (Manual) Lymphocytes % (Manual) Monocytes % (Manual) Basophils % (Manual) Seg Neutrophils # 15.9 H Seg Neutrophils # Man Lymphocytes # (Manual) Monocytes # (Manual) Eosinophils # (Manual) Basophils # (Manual) PT INR D-Dimer ABG pH POC ABG pCO2 POC ABG pO2 ABG pO2 ABG HCO3 ABG O2 Saturation ABG Base Excess ABG Hemoglobin ABG Oxyhemoglobin ABG Potassium ABG Glucose Oxyhemoglobin Carboxyhemoglobin Sodium Potassium 2.9 L* Chloride Carbon Dioxide 33 H D BUN Creatinine < 0.2 L Glucose 157 H POC Glucose 134 H Calcium Ferritin Total Bilirubin Alkaline Phosphatase Lactate Dehydrogenase Total Creatine Kinase CK-MB (CK-2) Rel Index Troponin T C-Reactive Protein Total Protein Albumin Prealbumin LDL Cholesterol Direct Arterial Blood Glucose Arterial Blood Ionized Calcium Urine WBC (Auto) 02/28/20 02/28/20 02/28/20 04:15 05:16 05:39 WBC RBC Hgb Hct MCV MCH RDW Plt Count Lymph % (Auto) Lymph # (Auto) [place] # (Auto) Seg Neutrophils % Seg Neuts % (Manual) Lymphocytes % (Manual) Monocytes % (Manual) Basophils % (Manual) Seg Neutrophils # Seg Neutrophils # Man Lymphocytes # (Manual) Monocytes # (Manual) Eosinophils # (Manual) Basophils # (Manual) PT INR D-Dimer ABG pH POC ABG pCO2 POC ABG pO2 ABG pO2 142.9 H ABG HCO3 34.1 H ABG O2 Saturation ABG Base Excess 8.3 H ABG Hemoglobin ABG Oxyhemoglobin ABG Potassium ABG Glucose Oxyhemoglobin Carboxyhemoglobin Sodium 151 H Potassium Chloride Carbon Dioxide 32 H BUN Creatinine 0.2 L Glucose 167 H POC Glucose 138 H Calcium Ferritin Total Bilirubin Alkaline Phosphatase Lactate Dehydrogenase Total Creatine Kinase CK-MB (CK-2) Rel Index Troponin T C-Reactive Protein Total Protein Albumin Prealbumin LDL Cholesterol Direct Arterial Blood Glucose Arterial Blood Ionized Calcium Urine WBC (Auto) 02/28/20 02/28/20 02/28/20 11:05 11:33 12:54 WBC RBC Hgb Hct MCV MCH RDW Plt Count Lymph % (Auto) Lymph # (Auto) [place] # (Auto) Seg Neutrophils % Seg Neuts % (Manual) Lymphocytes % (Manual) Monocytes % (Manual) Basophils % (Manual) Seg Neutrophils # Seg Neutrophils # Man Lymphocytes # (Manual) Monocytes # (Manual) Eosinophils # (Manual) Basophils # (Manual) PT INR D-Dimer ABG pH POC ABG pCO2 POC ABG pO2 ABG pO2 ABG HCO3 ABG O2 Saturation ABG Base Excess ABG Hemoglobin ABG Oxyhemoglobin ABG Potassium ABG Glucose Oxyhemoglobin Carboxyhemoglobin Sodium Potassium Chloride Carbon Dioxide BUN Creatinine Glucose POC Glucose 160 H Calcium Ferritin Total Bilirubin Alkaline Phosphatase Lactate Dehydrogenase Total Creatine Kinase CK-MB (CK-2) Rel Index Troponin T C-Reactive Protein 4.70 H Total Protein Albumin Prealbumin 0.090 L LDL Cholesterol Direct Arterial Blood Glucose Arterial Blood Ionized Calcium Urine WBC (Auto) 02/28/20 02/29/20 02/29/20 17:34 00:44 04:05 WBC 19.6 H RBC Hgb Hct MCV MCH 27 L RDW 15.4 H Plt Count Lymph % (Auto) Lymph # (Auto) [place] # (Auto) Seg Neutrophils % Seg Neuts % (Manual) 86.0 H Lymphocytes % (Manual) 7.0 L Monocytes % (Manual) Basophils % (Manual) Seg Neutrophils # Seg Neutrophils # Man 16.9 H Lymphocytes # (Manual) Monocytes # (Manual) 1.2 H Eosinophils # (Manual) Basophils # (Manual) PT INR D-Dimer ABG pH POC ABG pCO2 POC ABG pO2 ABG pO2 ABG HCO3 ABG O2 Saturation ABG Base Excess ABG Hemoglobin ABG Oxyhemoglobin ABG Potassium ABG Glucose Oxyhemoglobin Carboxyhemoglobin Sodium Potassium Chloride Carbon Dioxide BUN Creatinine Glucose POC Glucose 136 H 156 H Calcium Ferritin Total Bilirubin Alkaline Phosphatase Lactate Dehydrogenase Total Creatine Kinase CK-MB (CK-2) Rel Index Troponin T C-Reactive Protein Total Protein Albumin Prealbumin LDL Cholesterol Direct Arterial Blood Glucose Arterial Blood Ionized Calcium Urine WBC (Auto) 02/29/20 02/29/20 02/29/20 04:05 05:14 05:33 WBC RBC Hgb Hct MCV MCH RDW Plt Count Lymph % (Auto) Lymph # (Auto) [place] # (Auto) Seg Neutrophils % Seg Neuts % (Manual) Lymphocytes % (Manual) Monocytes % (Manual) Basophils % (Manual) Seg Neutrophils # Seg Neutrophils # Man Lymphocytes # (Manual) Monocytes # (Manual) Eosinophils # (Manual) Basophils # (Manual) PT INR D-Dimer ABG pH POC ABG pCO2 54.3 H POC ABG pO2 124.8 H ABG pO2 ABG HCO3 ABG O2 Saturation ABG Base Excess ABG Hemoglobin ABG Oxyhemoglobin ABG Potassium ABG Glucose 185 H Oxyhemoglobin Carboxyhemoglobin Sodium 148 H Potassium Chloride Carbon Dioxide 33 H BUN Creatinine < 0.2 L Glucose 173 H POC Glucose 152 H Calcium Ferritin Total Bilirubin Alkaline Phosphatase Lactate Dehydrogenase Total Creatine Kinase CK-MB (CK-2) Rel Index Troponin T C-Reactive Protein Total Protein Albumin Prealbumin LDL Cholesterol Direct Arterial Blood Glucose 185 H Arterial Blood Ionized Calcium Urine WBC (Auto) 03/01/20 03/01/20 03/01/20 00:00 03:45 04:33 WBC 23.1 H RBC Hgb Hct MCV MCH 27 L RDW 15.3 H Plt Count Lymph % (Auto) Lymph # (Auto) [place] # (Auto) Seg Neutrophils % Seg Neuts % (Manual) 92.0 H Lymphocytes % (Manual) 6.0 L Monocytes % (Manual) Basophils % (Manual) Seg Neutrophils # Seg Neutrophils # Man 21.3 H Lymphocytes # (Manual) Monocytes # (Manual) Eosinophils # (Manual) 0.5 H Basophils # (Manual) PT INR D-Dimer ABG pH 7.492 H POC ABG pCO2 POC ABG pO2 ABG pO2 157.1 H ABG HCO3 32.3 H ABG O2 Saturation ABG Base Excess 8.1 H ABG Hemoglobin 13.2 L ABG Oxyhemoglobin ABG Potassium ABG Glucose Oxyhemoglobin Carboxyhemoglobin Sodium Potassium Chloride Carbon Dioxide BUN Creatinine Glucose POC Glucose 109 H Calcium Ferritin Total Bilirubin Alkaline Phosphatase Lactate Dehydrogenase Total Creatine Kinase CK-MB (CK-2) Rel Index Troponin T C-Reactive Protein Total Protein Albumin Prealbumin LDL Cholesterol Direct Arterial Blood Glucose Arterial Blood Ionized Calcium Urine WBC (Auto) 03/01/20 03/01/20 03/01/20 04:33 05:29 12:32 WBC RBC Hgb Hct MCV MCH RDW Plt Count Lymph % (Auto) Lymph # (Auto) [place] # (Auto) Seg Neutrophils % Seg Neuts % (Manual) Lymphocytes % (Manual) Monocytes % (Manual) Basophils % (Manual) Seg Neutrophils # Seg Neutrophils # Man Lymphocytes # (Manual) Monocytes # (Manual) Eosinophils # (Manual) Basophils # (Manual) PT INR D-Dimer ABG pH POC ABG pCO2 POC ABG pO2 ABG pO2 ABG HCO3 ABG O2 Saturation ABG Base Excess ABG Hemoglobin ABG Oxyhemoglobin ABG Potassium ABG Glucose Oxyhemoglobin Carboxyhemoglobin Sodium 146 H Potassium Chloride Carbon Dioxide 32 H BUN Creatinine < 0.2 L Glucose 120 H POC Glucose 120 H 128 H Calcium Ferritin Total Bilirubin Alkaline Phosphatase Lactate Dehydrogenase Total Creatine Kinase CK-MB (CK-2) Rel Index Troponin T C-Reactive Protein Total Protein Albumin Prealbumin LDL Cholesterol Direct Arterial Blood Glucose Arterial Blood Ionized Calcium Urine WBC (Auto) 03/01/20 03/01/20 03/02/20 17:38 23:46 06:13 WBC RBC Hgb Hct MCV MCH RDW Plt Count Lymph % (Auto) Lymph # (Auto) [place] # (Auto) Seg Neutrophils % Seg Neuts % (Manual) Lymphocytes % (Manual) Monocytes % (Manual) Basophils % (Manual) Seg Neutrophils # Seg Neutrophils # Man Lymphocytes # (Manual) Monocytes # (Manual) Eosinophils # (Manual) Basophils # (Manual) PT INR D-Dimer ABG pH POC ABG pCO2 POC ABG pO2 ABG pO2 ABG HCO3 ABG O2 Saturation ABG Base Excess ABG Hemoglobin ABG Oxyhemoglobin ABG Potassium ABG Glucose Oxyhemoglobin Carboxyhemoglobin Sodium Potassium Chloride Carbon Dioxide BUN Creatinine Glucose POC Glucose 114 H 121 H 120 H Calcium Ferritin Total Bilirubin Alkaline Phosphatase Lactate Dehydrogenase Total Creatine Kinase CK-MB (CK-2) Rel Index Troponin T C-Reactive Protein Total Protein Albumin Prealbumin LDL Cholesterol Direct Arterial Blood Glucose Arterial Blood Ionized Calcium Urine WBC (Auto) 03/02/20 03/02/20 03/03/20 09:47 09:47 10:21 WBC 23.6 H RBC Hgb Hct MCV MCH RDW 15.3 H Plt Count 494 H Lymph % (Auto) Lymph # (Auto) [place] # (Auto) Seg Neutrophils % Seg Neuts % (Manual) 85.0 H Lymphocytes % (Manual) 6.0 L Monocytes % (Manual) Basophils % (Manual) Seg Neutrophils # Seg Neutrophils # Man 20.1 H Lymphocytes # (Manual) Monocytes # (Manual) 1.7 H Eosinophils # (Manual) Basophils # (Manual) PT INR D-Dimer ABG pH POC ABG pCO2 POC ABG pO2 ABG pO2 ABG HCO3 ABG O2 Saturation ABG Base Excess ABG Hemoglobin ABG Oxyhemoglobin ABG Potassium 3.3 L ABG Glucose 158 H Oxyhemoglobin Carboxyhemoglobin Sodium Potassium Chloride Carbon Dioxide BUN Creatinine < 0.2 L Glucose 177 H POC Glucose Calcium Ferritin Total Bilirubin Alkaline Phosphatase Lactate Dehydrogenase Total Creatine Kinase CK-MB (CK-2) Rel Index Troponin T C-Reactive Protein Total Protein Albumin Prealbumin LDL Cholesterol Direct Arterial Blood Glucose 158 H Arterial Blood Ionized Calcium Urine WBC (Auto) 03/03/20 03/04/20 03/04/20 21:30 00:00 12:23 WBC RBC Hgb Hct MCV MCH RDW Plt Count Lymph % (Auto) Lymph # (Auto) [place] # (Auto) Seg Neutrophils % Seg Neuts % (Manual) Lymphocytes % (Manual) Monocytes % (Manual) Basophils % (Manual) Seg Neutrophils # Seg Neutrophils # Man Lymphocytes # (Manual) Monocytes # (Manual) Eosinophils # (Manual) Basophils # (Manual) PT INR D-Dimer ABG pH 7.328 L POC ABG pCO2 POC ABG pO2 ABG pO2 68.4 L ABG HCO3 35.0 H ABG O2 Saturation 93.9 L ABG Base Excess 6.8 H ABG Hemoglobin 12.7 L ABG Oxyhemoglobin ABG Potassium ABG Glucose Oxyhemoglobin 91.9 L Carboxyhemoglobin Sodium Potassium Chloride Carbon Dioxide BUN Creatinine Glucose POC Glucose 187 H 163 H Calcium Ferritin Total Bilirubin Alkaline Phosphatase Lactate Dehydrogenase Total Creatine Kinase CK-MB (CK-2) Rel Index Troponin T C-Reactive Protein Total Protein Albumin Prealbumin LDL Cholesterol Direct Arterial Blood Glucose Arterial Blood Ionized Calcium Urine WBC (Auto) 03/04/20 03/04/20 03/05/20 18:15 21:30 06:02 WBC RBC Hgb Hct MCV MCH RDW Plt Count Lymph % (Auto) Lymph # (Auto) [place] # (Auto) Seg Neutrophils % Seg Neuts % (Manual) Lymphocytes % (Manual) Monocytes % (Manual) Basophils % (Manual) Seg Neutrophils # Seg Neutrophils # Man Lymphocytes # (Manual) Monocytes # (Manual) Eosinophils # (Manual) Basophils # (Manual) PT INR D-Dimer ABG pH 7.297 L POC ABG pCO2 POC ABG pO2 ABG pO2 ABG HCO3 41.0 H ABG O2 Saturation ABG Base Excess 11.0 H ABG Hemoglobin 13.1 L ABG Oxyhemoglobin ABG Potassium ABG Glucose Oxyhemoglobin 94.5 L Carboxyhemoglobin Sodium Potassium Chloride Carbon Dioxide BUN Creatinine Glucose POC Glucose 192 H 127 H Calcium Ferritin Total Bilirubin Alkaline Phosphatase Lactate Dehydrogenase Total Creatine Kinase CK-MB (CK-2) Rel Index Troponin T C-Reactive Protein Total Protein Albumin Prealbumin LDL Cholesterol Direct Arterial Blood Glucose Arterial Blood Ionized Calcium Urine WBC (Auto) 03/05/20 03/05/20 03/06/20 12:09 16:42 00:24 WBC RBC Hgb Hct MCV MCH RDW Plt Count Lymph % (Auto) Lymph # (Auto) [place] # (Auto) Seg Neutrophils % Seg Neuts % (Manual) Lymphocytes % (Manual) Monocytes % (Manual) Basophils % (Manual) Seg Neutrophils # Seg Neutrophils # Man Lymphocytes # (Manual) Monocytes # (Manual) Eosinophils # (Manual) Basophils # (Manual) PT INR D-Dimer ABG pH POC ABG pCO2 POC ABG pO2 ABG pO2 ABG HCO3 ABG O2 Saturation ABG Base Excess ABG Hemoglobin ABG Oxyhemoglobin ABG Potassium ABG Glucose Oxyhemoglobin Carboxyhemoglobin Sodium Potassium Chloride Carbon Dioxide BUN Creatinine Glucose POC Glucose 147 H 114 H 134 H Calcium Ferritin Total Bilirubin Alkaline Phosphatase Lactate Dehydrogenase Total Creatine Kinase CK-MB (CK-2) Rel Index Troponin T C-Reactive Protein Total Protein Albumin Prealbumin LDL Cholesterol Direct Arterial Blood Glucose Arterial Blood Ionized Calcium Urine WBC (Auto) 03/06/20 03/06/20 03/06/20 04:34 05:53 06:08 WBC 25.4 H RBC Hgb 10.5 L Hct 32.7 L MCV MCH 27 L RDW 15.3 H Plt Count 634 H Lymph % (Auto) Lymph # (Auto) [place] # (Auto) Seg Neutrophils % Seg Neuts % (Manual) 88.0 H Lymphocytes % (Manual) 2.0 L Monocytes % (Manual) 8.0 H Basophils % (Manual) Seg Neutrophils # Seg Neutrophils # Man 22.4 H Lymphocytes # (Manual) 0.5 L Monocytes # (Manual) 2.0 H Eosinophils # (Manual) Basophils # (Manual) PT INR D-Dimer ABG pH POC ABG pCO2 POC ABG pO2 ABG pO2 ABG HCO3 37.9 H ABG O2 Saturation ABG Base Excess 11.4 H ABG Hemoglobin 10.6 L ABG Oxyhemoglobin ABG Potassium ABG Glucose Oxyhemoglobin 94.7 L Carboxyhemoglobin Sodium Potassium Chloride Carbon Dioxide BUN Creatinine Glucose POC Glucose 135 H Calcium Ferritin Total Bilirubin Alkaline Phosphatase Lactate Dehydrogenase Total Creatine Kinase CK-MB (CK-2) Rel Index Troponin T C-Reactive Protein Total Protein Albumin Prealbumin LDL Cholesterol Direct Arterial Blood Glucose Arterial Blood Ionized Calcium Urine WBC (Auto) 03/06/20 03/06/20 03/06/20 06:08 12:19 19:10 WBC RBC Hgb Hct MCV MCH RDW Plt Count Lymph % (Auto) Lymph # (Auto) [place] # (Auto) Seg Neutrophils % Seg Neuts % (Manual) Lymphocytes % (Manual) Monocytes % (Manual) Basophils % (Manual) Seg Neutrophils # Seg Neutrophils # Man Lymphocytes # (Manual) Monocytes # (Manual) Eosinophils # (Manual) Basophils # (Manual) PT INR D-Dimer ABG pH POC ABG pCO2 POC ABG pO2 ABG pO2 ABG HCO3 ABG O2 Saturation ABG Base Excess ABG Hemoglobin ABG Oxyhemoglobin ABG Potassium ABG Glucose Oxyhemoglobin Carboxyhemoglobin Sodium 150 H D Potassium Chloride Carbon Dioxide 39 H D BUN 23 H Creatinine < 0.2 L Glucose 144 H POC Glucose 169 H 152 H Calcium Ferritin Total Bilirubin Alkaline Phosphatase Lactate Dehydrogenase Total Creatine Kinase CK-MB (CK-2) Rel Index Troponin T C-Reactive Protein Total Protein Albumin 3.3 L Prealbumin LDL Cholesterol Direct Arterial Blood Glucose Arterial Blood Ionized Calcium Urine WBC (Auto) 03/06/20 03/07/20 03/07/20 23:58 04:25 04:25 WBC 22.1 H RBC Hgb 10.9 L Hct 32.9 L MCV MCH RDW 15.5 H Plt Count 739 H Lymph % (Auto) 7.8 L Lymph # (Auto) [place] # (Auto) 1.3 H Seg Neutrophils % 85.5 H Seg Neuts % (Manual) Lymphocytes % (Manual) Monocytes % (Manual) Basophils % (Manual) Seg Neutrophils # 18.9 H Seg Neutrophils # Man Lymphocytes # (Manual) Monocytes # (Manual) Eosinophils # (Manual) Basophils # (Manual) PT INR D-Dimer ABG pH POC ABG pCO2 POC ABG pO2 ABG pO2 ABG HCO3 ABG O2 Saturation ABG Base Excess ABG Hemoglobin ABG Oxyhemoglobin ABG Potassium ABG Glucose Oxyhemoglobin Carboxyhemoglobin Sodium 146 H Potassium Chloride Carbon Dioxide 37 H BUN Creatinine < 0.2 L Glucose 118 H POC Glucose 111 H Calcium Ferritin Total Bilirubin Alkaline Phosphatase Lactate Dehydrogenase Total Creatine Kinase CK-MB (CK-2) Rel Index Troponin T C-Reactive Protein Total Protein Albumin 3.7 L Prealbumin LDL Cholesterol Direct Arterial Blood Glucose Arterial Blood Ionized Calcium Urine WBC (Auto) 03/07/20 03/07/20 03/07/20 05:20 17:45 23:32 WBC RBC Hgb Hct MCV MCH RDW Plt Count Lymph % (Auto) Lymph # (Auto) [place] # (Auto) Seg Neutrophils % Seg Neuts % (Manual) Lymphocytes % (Manual) Monocytes % (Manual) Basophils % (Manual) Seg Neutrophils # Seg Neutrophils # Man Lymphocytes # (Manual) Monocytes # (Manual) Eosinophils # (Manual) Basophils # (Manual) PT INR D-Dimer ABG pH POC ABG pCO2 POC ABG pO2 ABG pO2 ABG HCO3 ABG O2 Saturation ABG Base Excess ABG Hemoglobin ABG Oxyhemoglobin ABG Potassium ABG Glucose Oxyhemoglobin Carboxyhemoglobin Sodium Potassium Chloride Carbon Dioxide BUN Creatinine Glucose POC Glucose 113 H 124 H 210 H Calcium Ferritin Total Bilirubin Alkaline Phosphatase Lactate Dehydrogenase Total Creatine Kinase CK-MB (CK-2) Rel Index Troponin T C-Reactive Protein Total Protein Albumin Prealbumin LDL Cholesterol Direct Arterial Blood Glucose Arterial Blood Ionized Calcium Urine WBC (Auto) 03/08/20 03/08/20 03/08/20 05:35 06:43 06:43 WBC 28.9 H RBC 3.53 L Hgb 9.7 L Hct 30.3 L MCV MCH RDW 15.6 H Plt Count 578 H Lymph % (Auto) Lymph # (Auto) [place] # (Auto) Seg Neutrophils % Seg Neuts % (Manual) 93.0 H Lymphocytes % (Manual) 4.0 L Monocytes % (Manual) Basophils % (Manual) Seg Neutrophils # Seg Neutrophils # Man 26.9 H Lymphocytes # (Manual) Monocytes # (Manual) Eosinophils # (Manual) Basophils # (Manual) PT INR D-Dimer ABG pH POC ABG pCO2 POC ABG pO2 ABG pO2 ABG HCO3 ABG O2 Saturation ABG Base Excess ABG Hemoglobin ABG Oxyhemoglobin ABG Potassium ABG Glucose Oxyhemoglobin Carboxyhemoglobin Sodium 146 H Potassium Chloride Carbon Dioxide 35 H BUN 34 H Creatinine 0.3 L D Glucose 125 H POC Glucose 147 H Calcium Ferritin Total Bilirubin Alkaline Phosphatase Lactate Dehydrogenase Total Creatine Kinase CK-MB (CK-2) Rel Index Troponin T C-Reactive Protein Total Protein 5.9 L Albumin 3.2 L Prealbumin LDL Cholesterol Direct Arterial Blood Glucose Arterial Blood Ionized Calcium Urine WBC (Auto) 03/08/20 03/08/20 03/08/20 08:57 11:14 12:34 WBC RBC Hgb Hct MCV MCH RDW Plt Count Lymph % (Auto) Lymph # (Auto) [place] # (Auto) Seg Neutrophils % Seg Neuts % (Manual) Lymphocytes % (Manual) Monocytes % (Manual) Basophils % (Manual) Seg Neutrophils # Seg Neutrophils # Man Lymphocytes # (Manual) Monocytes # (Manual) Eosinophils # (Manual) Basophils # (Manual) PT INR D-Dimer ABG pH POC ABG pCO2 63.1 H POC ABG pO2 ABG pO2 ABG HCO3 ABG O2 Saturation ABG Base Excess ABG Hemoglobin 10.9 L ABG Oxyhemoglobin ABG Potassium ABG Glucose 176 H Oxyhemoglobin Carboxyhemoglobin Sodium Potassium Chloride Carbon Dioxide BUN Creatinine Glucose POC Glucose 171 H Calcium Ferritin Total Bilirubin Alkaline Phosphatase Lactate Dehydrogenase Total Creatine Kinase CK-MB (CK-2) Rel Index Troponin T C-Reactive Protein Total Protein Albumin Prealbumin LDL Cholesterol Direct Arterial Blood Glucose 176 H Arterial Blood Ionized Calcium 4.5 L Urine WBC (Auto) 10.0 H 03/08/20 03/08/20 03/09/20 18:02 23:43 05:49 WBC RBC Hgb Hct MCV MCH RDW Plt Count Lymph % (Auto) Lymph # (Auto) [place] # (Auto) Seg Neutrophils % Seg Neuts % (Manual) Lymphocytes % (Manual) Monocytes % (Manual) Basophils % (Manual) Seg Neutrophils # Seg Neutrophils # Man Lymphocytes # (Manual) Monocytes # (Manual) Eosinophils # (Manual) Basophils # (Manual) PT INR D-Dimer ABG pH POC ABG pCO2 POC ABG pO2 ABG pO2 ABG HCO3 ABG O2 Saturation ABG Base Excess ABG Hemoglobin ABG Oxyhemoglobin ABG Potassium ABG Glucose Oxyhemoglobin Carboxyhemoglobin Sodium Potassium Chloride Carbon Dioxide BUN Creatinine Glucose POC Glucose 157 H 134 H 163 H Calcium Ferritin Total Bilirubin Alkaline Phosphatase Lactate Dehydrogenase Total Creatine Kinase CK-MB (CK-2) Rel Index Troponin T C-Reactive Protein Total Protein Albumin Prealbumin LDL Cholesterol Direct Arterial Blood Glucose Arterial Blood Ionized Calcium Urine WBC (Auto) 03/09/20 03/09/20 03/09/20 08:35 08:35 12:11 WBC 23.4 H RBC 3.36 L Hgb 9.3 L Hct 28.8 L MCV MCH RDW 15.9 H Plt Count 521 H Lymph % (Auto) Lymph # (Auto) [place] # (Auto) Seg Neutrophils % Seg Neuts % (Manual) 87.0 H Lymphocytes % (Manual) 4.0 L Monocytes % (Manual) 9.0 H Basophils % (Manual) Seg Neutrophils # Seg Neutrophils # Man 20.4 H Lymphocytes # (Manual) 0.9 L Monocytes # (Manual) 2.1 H Eosinophils # (Manual) Basophils # (Manual) PT INR D-Dimer ABG pH POC ABG pCO2 POC ABG pO2 ABG pO2 ABG HCO3 ABG O2 Saturation ABG Base Excess ABG Hemoglobin ABG Oxyhemoglobin ABG Potassium ABG Glucose Oxyhemoglobin Carboxyhemoglobin Sodium 147 H Potassium Chloride Carbon Dioxide 37 H BUN 63 H Creatinine Glucose 154 H POC Glucose 128 H Calcium Ferritin Total Bilirubin Alkaline Phosphatase Lactate Dehydrogenase Total Creatine Kinase CK-MB (CK-2) Rel Index Troponin T C-Reactive Protein Total Protein Albumin Prealbumin LDL Cholesterol Direct Arterial Blood Glucose Arterial Blood Ionized Calcium Urine WBC (Auto) 03/09/20 03/10/20 03/10/20 17:51 00:25 05:41 WBC RBC Hgb Hct MCV MCH RDW Plt Count Lymph % (Auto) Lymph # (Auto) [place] # (Auto) Seg Neutrophils % Seg Neuts % (Manual) Lymphocytes % (Manual) Monocytes % (Manual) Basophils % (Manual) Seg Neutrophils # Seg Neutrophils # Man Lymphocytes # (Manual) Monocytes # (Manual) Eosinophils # (Manual) Basophils # (Manual) PT INR D-Dimer ABG pH POC ABG pCO2 POC ABG pO2 ABG pO2 ABG HCO3 ABG O2 Saturation ABG Base Excess ABG Hemoglobin ABG Oxyhemoglobin ABG Potassium ABG Glucose Oxyhemoglobin Carboxyhemoglobin Sodium Potassium Chloride Carbon Dioxide BUN Creatinine Glucose POC Glucose 127 H 128 H 153 H Calcium Ferritin Total Bilirubin Alkaline Phosphatase Lactate Dehydrogenase Total Creatine Kinase CK-MB (CK-2) Rel Index Troponin T C-Reactive Protein Total Protein Albumin Prealbumin LDL Cholesterol Direct Arterial Blood Glucose Arterial Blood Ionized Calcium Urine WBC (Auto) 03/10/20 03/10/20 03/10/20 06:14 06:14 12:02 WBC 18.3 H RBC 3.45 L Hgb 9.5 L Hct 29.5 L MCV MCH RDW 16.1 H Plt Count 494 H Lymph % (Auto) Lymph # (Auto) [place] # (Auto) Seg Neutrophils % Seg Neuts % (Manual) 95.0 H Lymphocytes % (Manual) 1.0 L Monocytes % (Manual) Basophils % (Manual) Seg Neutrophils # Seg Neutrophils # Man 17.4 H Lymphocytes # (Manual) 0.2 L Monocytes # (Manual) Eosinophils # (Manual) Basophils # (Manual) PT INR D-Dimer ABG pH POC ABG pCO2 POC ABG pO2 ABG pO2 ABG HCO3 ABG O2 Saturation ABG Base Excess ABG Hemoglobin ABG Oxyhemoglobin ABG Potassium ABG Glucose Oxyhemoglobin Carboxyhemoglobin Sodium 149 H Potassium Chloride Carbon Dioxide 35 H BUN 34 H Creatinine 0.2 L D Glucose 177 H POC Glucose 151 H Calcium Ferritin Total Bilirubin Alkaline Phosphatase Lactate Dehydrogenase Total Creatine Kinase CK-MB (CK-2) Rel Index Troponin T C-Reactive Protein Total Protein Albumin Prealbumin LDL Cholesterol Direct Arterial Blood Glucose Arterial Blood Ionized Calcium Urine WBC (Auto) 03/10/20 03/10/20 03/11/20 17:41 23:53 05:02 WBC RBC Hgb Hct MCV MCH RDW Plt Count Lymph % (Auto) Lymph # (Auto) [place] # (Auto) Seg Neutrophils % Seg Neuts % (Manual) Lymphocytes % (Manual) Monocytes % (Manual) Basophils % (Manual) Seg Neutrophils # Seg Neutrophils # Man Lymphocytes # (Manual) Monocytes # (Manual) Eosinophils # (Manual) Basophils # (Manual) PT INR D-Dimer ABG pH POC ABG pCO2 POC ABG pO2 ABG pO2 ABG HCO3 ABG O2 Saturation ABG Base Excess ABG Hemoglobin ABG Oxyhemoglobin ABG Potassium ABG Glucose Oxyhemoglobin Carboxyhemoglobin Sodium Potassium Chloride Carbon Dioxide BUN Creatinine Glucose POC Glucose 168 H 142 H 146 H Calcium Ferritin Total Bilirubin Alkaline Phosphatase Lactate Dehydrogenase Total Creatine Kinase CK-MB (CK-2) Rel Index Troponin T C-Reactive Protein Total Protein Albumin Prealbumin LDL Cholesterol Direct Arterial Blood Glucose Arterial Blood Ionized Calcium Urine WBC (Auto) 03/11/20 03/11/20 03/11/20 11:30 14:01 14:01 WBC 19.7 H RBC 3.04 L Hgb 8.7 L Hct 25.8 L MCV MCH RDW 15.6 H Plt Count Lymph % (Auto) Lymph # (Auto) [place] # (Auto) Seg Neutrophils % Seg Neuts % (Manual) Lymphocytes % (Manual) Monocytes % (Manual) Basophils % (Manual) Seg Neutrophils # Seg Neutrophils # Man Lymphocytes # (Manual) Monocytes # (Manual) Eosinophils # (Manual) Basophils # (Manual) PT INR D-Dimer ABG pH POC ABG pCO2 POC ABG pO2 ABG pO2 ABG HCO3 ABG O2 Saturation ABG Base Excess ABG Hemoglobin ABG Oxyhemoglobin ABG Potassium ABG Glucose Oxyhemoglobin Carboxyhemoglobin Sodium 151 H Potassium Chloride Carbon Dioxide 37 H BUN Creatinine < 0.2 L Glucose 171 H POC Glucose 248 H Calcium Ferritin Total Bilirubin Alkaline Phosphatase Lactate Dehydrogenase Total Creatine Kinase CK-MB (CK-2) Rel Index Troponin T C-Reactive Protein Total Protein Albumin Prealbumin LDL Cholesterol Direct Arterial Blood Glucose Arterial Blood Ionized Calcium Urine WBC (Auto) 03/11/20 03/11/20 03/12/20 17:09 23:52 04:39 WBC 19.9 H RBC 3.16 L Hgb 8.9 L Hct 27.5 L MCV MCH RDW 15.7 H Plt Count Lymph % (Auto) 6.8 L Lymph # (Auto) [place] # (Auto) 1.2 H Seg Neutrophils % 86.0 H Seg Neuts % (Manual) Lymphocytes % (Manual) Monocytes % (Manual) Basophils % (Manual) Seg Neutrophils # 17.1 H Seg Neutrophils # Man Lymphocytes # (Manual) Monocytes # (Manual) Eosinophils # (Manual) Basophils # (Manual) PT INR D-Dimer ABG pH POC ABG pCO2 POC ABG pO2 ABG pO2 ABG HCO3 ABG O2 Saturation ABG Base Excess ABG Hemoglobin ABG Oxyhemoglobin ABG Potassium ABG Glucose Oxyhemoglobin Carboxyhemoglobin Sodium Potassium Chloride Carbon Dioxide BUN Creatinine Glucose POC Glucose 124 H 131 H Calcium Ferritin Total Bilirubin Alkaline Phosphatase Lactate Dehydrogenase Total Creatine Kinase CK-MB (CK-2) Rel Index Troponin T C-Reactive Protein Total Protein Albumin Prealbumin LDL Cholesterol Direct Arterial Blood Glucose Arterial Blood Ionized Calcium Urine WBC (Auto) 03/12/20 03/12/20 03/12/20 04:39 05:28 11:34 WBC RBC Hgb Hct MCV MCH RDW Plt Count Lymph % (Auto) Lymph # (Auto) [place] # (Auto) Seg Neutrophils % Seg Neuts % (Manual) Lymphocytes % (Manual) Monocytes % (Manual) Basophils % (Manual) Seg Neutrophils # Seg Neutrophils # Man Lymphocytes # (Manual) Monocytes # (Manual) Eosinophils # (Manual) Basophils # (Manual) PT INR D-Dimer ABG pH POC ABG pCO2 POC ABG pO2 ABG pO2 ABG HCO3 ABG O2 Saturation ABG Base Excess ABG Hemoglobin ABG Oxyhemoglobin ABG Potassium ABG Glucose Oxyhemoglobin Carboxyhemoglobin Sodium 147 H Potassium Chloride Carbon Dioxide 40 H BUN Creatinine < 0.2 L Glucose 175 H POC Glucose 167 H 144 H Calcium Ferritin Total Bilirubin Alkaline Phosphatase Lactate Dehydrogenase Total Creatine Kinase CK-MB (CK-2) Rel Index Troponin T C-Reactive Protein Total Protein Albumin Prealbumin LDL Cholesterol Direct Arterial Blood Glucose Arterial Blood Ionized Calcium Urine WBC (Auto) 03/12/20 03/12/20 03/13/20 17:32 23:57 05:57 WBC RBC Hgb Hct MCV MCH RDW Plt Count Lymph % (Auto) Lymph # (Auto) [place] # (Auto) Seg Neutrophils % Seg Neuts % (Manual) Lymphocytes % (Manual) Monocytes % (Manual) Basophils % (Manual) Seg Neutrophils # Seg Neutrophils # Man Lymphocytes # (Manual) Monocytes # (Manual) Eosinophils # (Manual) Basophils # (Manual) PT INR D-Dimer ABG pH POC ABG pCO2 POC ABG pO2 ABG pO2 ABG HCO3 ABG O2 Saturation ABG Base Excess ABG Hemoglobin ABG Oxyhemoglobin ABG Potassium ABG Glucose Oxyhemoglobin Carboxyhemoglobin Sodium Potassium Chloride Carbon Dioxide BUN Creatinine Glucose POC Glucose 141 H 137 H 161 H Calcium Ferritin Total Bilirubin Alkaline Phosphatase Lactate Dehydrogenase Total Creatine Kinase CK-MB (CK-2) Rel Index Troponin T C-Reactive Protein Total Protein Albumin Prealbumin LDL Cholesterol Direct Arterial Blood Glucose Arterial Blood Ionized Calcium Urine WBC (Auto) 03/13/20 03/13/20 03/13/20 12:28 14:14 18:39 WBC RBC Hgb Hct MCV MCH RDW Plt Count Lymph % (Auto) Lymph # (Auto) [place] # (Auto) Seg Neutrophils % Seg Neuts % (Manual) Lymphocytes % (Manual) Monocytes % (Manual) Basophils % (Manual) Seg Neutrophils # Seg Neutrophils # Man Lymphocytes # (Manual) Monocytes # (Manual) Eosinophils # (Manual) Basophils # (Manual) PT INR D-Dimer ABG pH POC ABG pCO2 POC ABG pO2 ABG pO2 ABG HCO3 ABG O2 Saturation ABG Base Excess ABG Hemoglobin ABG Oxyhemoglobin ABG Potassium ABG Glucose Oxyhemoglobin Carboxyhemoglobin Sodium Potassium Chloride Carbon Dioxide 39 H BUN Creatinine < 0.2 L Glucose 129 H POC Glucose 130 H 125 H Calcium Ferritin Total Bilirubin Alkaline Phosphatase Lactate Dehydrogenase Total Creatine Kinase CK-MB (CK-2) Rel Index Troponin T C-Reactive Protein Total Protein Albumin Prealbumin LDL Cholesterol Direct Arterial Blood Glucose Arterial Blood Ionized Calcium Urine WBC (Auto) 03/13/20 03/14/20 03/14/20 23:33 05:24 08:07 WBC 16.8 H RBC 2.81 L Hgb 7.9 L Hct 23.9 L MCV MCH RDW 15.9 H Plt Count Lymph % (Auto) Lymph # (Auto) [place] # (Auto) Seg Neutrophils % Seg Neuts % (Manual) 84.0 H Lymphocytes % (Manual) 10.0 L Monocytes % (Manual) Basophils % (Manual) Seg Neutrophils # Seg Neutrophils # Man 14.1 H Lymphocytes # (Manual) Monocytes # (Manual) Eosinophils # (Manual) Basophils # (Manual) PT INR D-Dimer ABG pH POC ABG pCO2 POC ABG pO2 ABG pO2 ABG HCO3 ABG O2 Saturation ABG Base Excess ABG Hemoglobin ABG Oxyhemoglobin ABG Potassium ABG Glucose Oxyhemoglobin Carboxyhemoglobin Sodium Potassium Chloride Carbon Dioxide BUN Creatinine Glucose POC Glucose 146 H 125 H Calcium Ferritin Total Bilirubin Alkaline Phosphatase Lactate Dehydrogenase Total Creatine Kinase CK-MB (CK-2) Rel Index Troponin T C-Reactive Protein Total Protein Albumin Prealbumin LDL Cholesterol Direct Arterial Blood Glucose Arterial Blood Ionized Calcium Urine WBC (Auto) 03/14/20 03/14/20 03/14/20 08:07 12:21 18:26 WBC RBC Hgb Hct MCV MCH RDW Plt Count Lymph % (Auto) Lymph # (Auto) [place] # (Auto) Seg Neutrophils % Seg Neuts % (Manual) Lymphocytes % (Manual) Monocytes % (Manual) Basophils % (Manual) Seg Neutrophils # Seg Neutrophils # Man Lymphocytes # (Manual) Monocytes # (Manual) Eosinophils # (Manual) Basophils # (Manual) PT INR D-Dimer ABG pH POC ABG pCO2 POC ABG pO2 ABG pO2 ABG HCO3 ABG O2 Saturation ABG Base Excess ABG Hemoglobin ABG Oxyhemoglobin ABG Potassium ABG Glucose Oxyhemoglobin Carboxyhemoglobin Sodium Potassium Chloride 97.0 L Carbon Dioxide 37 H BUN Creatinine < 0.2 L Glucose 129 H POC Glucose 109 H 142 H Calcium 8.3 L Ferritin Total Bilirubin Alkaline Phosphatase Lactate Dehydrogenase Total Creatine Kinase CK-MB (CK-2) Rel Index Troponin T C-Reactive Protein Total Protein Albumin Prealbumin LDL Cholesterol Direct Arterial Blood Glucose Arterial Blood Ionized Calcium Urine WBC (Auto) 03/14/20 03/15/20 03/15/20 23:57 05:46 08:06 WBC 19.7 H RBC 3.29 L Hgb 9.1 L Hct 28.0 L MCV MCH RDW 15.9 H Plt Count Lymph % (Auto) Lymph # (Auto) [place] # (Auto) Seg Neutrophils % Seg Neuts % (Manual) Lymphocytes % (Manual) Monocytes % (Manual) Basophils % (Manual) Seg Neutrophils # Seg Neutrophils # Man Lymphocytes # (Manual) Monocytes # (Manual) Eosinophils # (Manual) Basophils # (Manual) PT INR D-Dimer ABG pH POC ABG pCO2 POC ABG pO2 ABG pO2 ABG HCO3 ABG O2 Saturation ABG Base Excess ABG Hemoglobin ABG Oxyhemoglobin ABG Potassium ABG Glucose Oxyhemoglobin Carboxyhemoglobin Sodium Potassium Chloride Carbon Dioxide BUN Creatinine Glucose POC Glucose 157 H 118 H Calcium Ferritin Total Bilirubin Alkaline Phosphatase Lactate Dehydrogenase Total Creatine Kinase CK-MB (CK-2) Rel Index Troponin T C-Reactive Protein Total Protein Albumin Prealbumin LDL Cholesterol Direct Arterial Blood Glucose Arterial Blood Ionized Calcium Urine WBC (Auto) 03/15/20 03/15/20 03/15/20 08:06 12:44 18:09 WBC RBC Hgb Hct MCV MCH RDW Plt Count Lymph % (Auto) Lymph # (Auto) [place] # (Auto) Seg Neutrophils % Seg Neuts % (Manual) Lymphocytes % (Manual) Monocytes % (Manual) Basophils % (Manual) Seg Neutrophils # Seg Neutrophils # Man Lymphocytes # (Manual) Monocytes # (Manual) Eosinophils # (Manual) Basophils # (Manual) PT INR D-Dimer ABG pH POC ABG pCO2 POC ABG pO2 ABG pO2 ABG HCO3 ABG O2 Saturation ABG Base Excess ABG Hemoglobin ABG Oxyhemoglobin ABG Potassium ABG Glucose Oxyhemoglobin Carboxyhemoglobin Sodium 136 L Potassium Chloride 93.6 L Carbon Dioxide 37 H BUN Creatinine < 0.2 L Glucose 132 H POC Glucose 151 H 164 H Calcium Ferritin Total Bilirubin Alkaline Phosphatase Lactate Dehydrogenase Total Creatine Kinase CK-MB (CK-2) Rel Index Troponin T C-Reactive Protein Total Protein Albumin Prealbumin LDL Cholesterol Direct Arterial Blood Glucose Arterial Blood Ionized Calcium Urine WBC (Auto) 03/15/20 03/16/20 03/16/20 23:26 05:39 11:58 WBC RBC Hgb Hct MCV MCH RDW Plt Count Lymph % (Auto) Lymph # (Auto) [place] # (Auto) Seg Neutrophils % Seg Neuts % (Manual) Lymphocytes % (Manual) Monocytes % (Manual) Basophils % (Manual) Seg Neutrophils # Seg Neutrophils # Man Lymphocytes # (Manual) Monocytes # (Manual) Eosinophils # (Manual) Basophils # (Manual) PT INR D-Dimer ABG pH POC ABG pCO2 POC ABG pO2 ABG pO2 ABG HCO3 ABG O2 Saturation ABG Base Excess ABG Hemoglobin ABG Oxyhemoglobin ABG Potassium ABG Glucose Oxyhemoglobin Carboxyhemoglobin Sodium Potassium Chloride Carbon Dioxide BUN Creatinine Glucose POC Glucose 136 H 116 H 109 H Calcium Ferritin Total Bilirubin Alkaline Phosphatase Lactate Dehydrogenase Total Creatine Kinase CK-MB (CK-2) Rel Index Troponin T C-Reactive Protein Total Protein Albumin Prealbumin LDL Cholesterol Direct Arterial Blood Glucose Arterial Blood Ionized Calcium Urine WBC (Auto) 03/16/20 03/17/20 03/17/20 23:56 04:40 04:40 WBC 18.0 H RBC 3.33 L Hgb 9.5 L Hct 28.8 L MCV MCH RDW 16.4 H Plt Count 499 H Lymph % (Auto) Lymph # (Auto) [place] # (Auto) Seg Neutrophils % Seg Neuts % (Manual) 82.0 H Lymphocytes % (Manual) 8.0 L Monocytes % (Manual) Basophils % (Manual) Seg Neutrophils # Seg Neutrophils # Man 14.8 H Lymphocytes # (Manual) Monocytes # (Manual) 1.3 H Eosinophils # (Manual) Basophils # (Manual) 0.2 H PT INR D-Dimer ABG pH POC ABG pCO2 POC ABG pO2 ABG pO2 ABG HCO3 ABG O2 Saturation ABG Base Excess ABG Hemoglobin ABG Oxyhemoglobin ABG Potassium ABG Glucose Oxyhemoglobin Carboxyhemoglobin Sodium Potassium Chloride 97.7 L Carbon Dioxide 32 H BUN Creatinine < 0.2 L Glucose 114 H POC Glucose 131 H Calcium Ferritin Total Bilirubin Alkaline Phosphatase Lactate Dehydrogenase Total Creatine Kinase CK-MB (CK-2) Rel Index Troponin T C-Reactive Protein Total Protein Albumin Prealbumin LDL Cholesterol Direct Arterial Blood Glucose Arterial Blood Ionized Calcium Urine WBC (Auto) 03/18/20 03/18/20 03/18/20 00:21 05:21 11:55 WBC RBC Hgb Hct MCV MCH RDW Plt Count Lymph % (Auto) Lymph # (Auto) [place] # (Auto) Seg Neutrophils % Seg Neuts % (Manual) Lymphocytes % (Manual) Monocytes % (Manual) Basophils % (Manual) Seg Neutrophils # Seg Neutrophils # Man Lymphocytes # (Manual) Monocytes # (Manual) Eosinophils # (Manual) Basophils # (Manual) PT INR D-Dimer ABG pH POC ABG pCO2 POC ABG pO2 ABG pO2 ABG HCO3 ABG O2 Saturation ABG Base Excess ABG Hemoglobin ABG Oxyhemoglobin ABG Potassium ABG Glucose Oxyhemoglobin Carboxyhemoglobin Sodium Potassium Chloride Carbon Dioxide BUN Creatinine Glucose POC Glucose 124 H 138 H 119 H Calcium Ferritin Total Bilirubin Alkaline Phosphatase Lactate Dehydrogenase Total Creatine Kinase CK-MB (CK-2) Rel Index Troponin T C-Reactive Protein Total Protein Albumin Prealbumin LDL Cholesterol Direct Arterial Blood Glucose Arterial Blood Ionized Calcium Urine WBC (Auto) 03/18/20 03/18/20 03/19/20 17:03 23:58 05:24 WBC RBC Hgb Hct MCV MCH RDW Plt Count Lymph % (Auto) Lymph # (Auto) [place] # (Auto) Seg Neutrophils % Seg Neuts % (Manual) Lymphocytes % (Manual) Monocytes % (Manual) Basophils % (Manual) Seg Neutrophils # Seg Neutrophils # Man Lymphocytes # (Manual) Monocytes # (Manual) Eosinophils # (Manual) Basophils # (Manual) PT INR D-Dimer ABG pH POC ABG pCO2 POC ABG pO2 ABG pO2 ABG HCO3 ABG O2 Saturation ABG Base Excess ABG Hemoglobin ABG Oxyhemoglobin ABG Potassium ABG Glucose Oxyhemoglobin Carboxyhemoglobin Sodium Potassium Chloride Carbon Dioxide BUN Creatinine Glucose POC Glucose 128 H 128 H 115 H Calcium Ferritin Total Bilirubin Alkaline Phosphatase Lactate Dehydrogenase Total Creatine Kinase CK-MB (CK-2) Rel Index Troponin T C-Reactive Protein Total Protein Albumin Prealbumin LDL Cholesterol Direct Arterial Blood Glucose Arterial Blood Ionized Calcium Urine WBC (Auto) 03/19/20 03/19/20 03/19/20 08:05 08:05 11:56 WBC 16.8 H RBC 3.36 L Hgb 9.4 L Hct 28.8 L MCV MCH RDW 17.4 H Plt Count 567 H Lymph % (Auto) 7.8 L Lymph # (Auto) [place] # (Auto) 1.2 H Seg Neutrophils % 83.5 H Seg Neuts % (Manual) Lymphocytes % (Manual) Monocytes % (Manual) Basophils % (Manual) Seg Neutrophils # 14.1 H Seg Neutrophils # Man Lymphocytes # (Manual) Monocytes # (Manual) Eosinophils # (Manual) Basophils # (Manual) PT INR D-Dimer ABG pH POC ABG pCO2 POC ABG pO2 ABG pO2 ABG HCO3 ABG O2 Saturation ABG Base Excess ABG Hemoglobin ABG Oxyhemoglobin ABG Potassium ABG Glucose Oxyhemoglobin Carboxyhemoglobin Sodium Potassium Chloride Carbon Dioxide 36 H BUN Creatinine < 0.2 L Glucose 135 H POC Glucose 128 H Calcium Ferritin Total Bilirubin Alkaline Phosphatase Lactate Dehydrogenase Total Creatine Kinase CK-MB (CK-2) Rel Index Troponin T C-Reactive Protein Total Protein Albumin Prealbumin LDL Cholesterol Direct Arterial Blood Glucose Arterial Blood Ionized Calcium Urine WBC (Auto) 03/19/20 03/20/20 03/20/20 23:59 05:12 16:52 WBC RBC Hgb Hct MCV MCH RDW Plt Count Lymph % (Auto) Lymph # (Auto) [place] # (Auto) Seg Neutrophils % Seg Neuts % (Manual) Lymphocytes % (Manual) Monocytes % (Manual) Basophils % (Manual) Seg Neutrophils # Seg Neutrophils # Man Lymphocytes # (Manual) Monocytes # (Manual) Eosinophils # (Manual) Basophils # (Manual) PT INR D-Dimer ABG pH POC ABG pCO2 POC ABG pO2 ABG pO2 ABG HCO3 ABG O2 Saturation ABG Base Excess ABG Hemoglobin ABG Oxyhemoglobin ABG Potassium ABG Glucose Oxyhemoglobin Carboxyhemoglobin Sodium Potassium Chloride Carbon Dioxide BUN Creatinine Glucose POC Glucose 120 H 131 H 124 H Calcium Ferritin Total Bilirubin Alkaline Phosphatase Lactate Dehydrogenase Total Creatine Kinase CK-MB (CK-2) Rel Index Troponin T C-Reactive Protein Total Protein Albumin Prealbumin LDL Cholesterol Direct Arterial Blood Glucose Arterial Blood Ionized Calcium Urine WBC (Auto) 03/20/20 03/21/20 03/21/20 23:35 04:50 07:35 WBC 15.2 H RBC 3.39 L Hgb 9.4 L Hct 29.4 L MCV MCH RDW 17.6 H Plt Count 518 H Lymph % (Auto) Lymph # (Auto) [place] # (Auto) Seg Neutrophils % Seg Neuts % (Manual) 83.0 H Lymphocytes % (Manual) 10.0 L Monocytes % (Manual) Basophils % (Manual) 2.0 H Seg Neutrophils # Seg Neutrophils # Man 12.6 H Lymphocytes # (Manual) Monocytes # (Manual) Eosinophils # (Manual) Basophils # (Manual) 0.3 H PT INR D-Dimer ABG pH POC ABG pCO2 POC ABG pO2 ABG pO2 ABG HCO3 ABG O2 Saturation ABG Base Excess ABG Hemoglobin ABG Oxyhemoglobin ABG Potassium ABG Glucose Oxyhemoglobin Carboxyhemoglobin Sodium Potassium Chloride Carbon Dioxide BUN Creatinine Glucose POC Glucose 125 H 127 H Calcium Ferritin Total Bilirubin Alkaline Phosphatase Lactate Dehydrogenase Total Creatine Kinase CK-MB (CK-2) Rel Index Troponin T C-Reactive Protein Total Protein Albumin Prealbumin LDL Cholesterol Direct Arterial Blood Glucose Arterial Blood Ionized Calcium Urine WBC (Auto) 03/21/20 03/21/20 03/21/20 07:35 11:45 17:22 WBC RBC Hgb Hct MCV MCH RDW Plt Count Lymph % (Auto) Lymph # (Auto) [place] # (Auto) Seg Neutrophils % Seg Neuts % (Manual) Lymphocytes % (Manual) Monocytes % (Manual) Basophils % (Manual) Seg Neutrophils # Seg Neutrophils # Man Lymphocytes # (Manual) Monocytes # (Manual) Eosinophils # (Manual) Basophils # (Manual) PT INR D-Dimer ABG pH POC ABG pCO2 POC ABG pO2 ABG pO2 ABG HCO3 ABG O2 Saturation ABG Base Excess ABG Hemoglobin ABG Oxyhemoglobin ABG Potassium ABG Glucose Oxyhemoglobin Carboxyhemoglobin Sodium 136 L Potassium Chloride 97.7 L Carbon Dioxide 32 H BUN Creatinine < 0.2 L Glucose 103 H POC Glucose 126 H 120 H Calcium Ferritin Total Bilirubin Alkaline Phosphatase Lactate Dehydrogenase Total Creatine Kinase CK-MB (CK-2) Rel Index Troponin T C-Reactive Protein Total Protein Albumin Prealbumin LDL Cholesterol Direct Arterial Blood Glucose Arterial Blood Ionized Calcium Urine WBC (Auto) 03/22/20 03/22/20 03/22/20 05:09 06:34 06:34 WBC 17.5 H RBC 3.52 L Hgb 10.0 L Hct 30.7 L MCV MCH RDW 17.5 H Plt Count 499 H Lymph % (Auto) Lymph # (Auto) [place] # (Auto) Seg Neutrophils % Seg Neuts % (Manual) 80.0 H Lymphocytes % (Manual) 10.0 L Monocytes % (Manual) Basophils % (Manual) Seg Neutrophils # Seg Neutrophils # Man 14.0 H Lymphocytes # (Manual) Monocytes # (Manual) Eosinophils # (Manual) Basophils # (Manual) PT INR D-Dimer ABG pH POC ABG pCO2 POC ABG pO2 ABG pO2 ABG HCO3 ABG O2 Saturation ABG Base Excess ABG Hemoglobin ABG Oxyhemoglobin ABG Potassium ABG Glucose Oxyhemoglobin Carboxyhemoglobin Sodium Potassium Chloride 96.6 L Carbon Dioxide 38 H BUN Creatinine < 0.2 L Glucose 139 H POC Glucose 125 H Calcium Ferritin Total Bilirubin Alkaline Phosphatase Lactate Dehydrogenase Total Creatine Kinase CK-MB (CK-2) Rel Index Troponin T C-Reactive Protein Total Protein Albumin Prealbumin LDL Cholesterol Direct Arterial Blood Glucose Arterial Blood Ionized Calcium Urine WBC (Auto) 03/22/20 03/22/20 03/22/20 11:45 18:00 23:32 WBC RBC Hgb Hct MCV MCH RDW Plt Count Lymph % (Auto) Lymph # (Auto) [place] # (Auto) Seg Neutrophils % Seg Neuts % (Manual) Lymphocytes % (Manual) Monocytes % (Manual) Basophils % (Manual) Seg Neutrophils # Seg Neutrophils # Man Lymphocytes # (Manual) Monocytes # (Manual) Eosinophils # (Manual) Basophils # (Manual) PT INR D-Dimer ABG pH POC ABG pCO2 POC ABG pO2 ABG pO2 ABG HCO3 ABG O2 Saturation ABG Base Excess ABG Hemoglobin ABG Oxyhemoglobin ABG Potassium ABG Glucose Oxyhemoglobin Carboxyhemoglobin Sodium Potassium Chloride Carbon Dioxide BUN Creatinine Glucose POC Glucose 135 H 133 H Calcium Ferritin Total Bilirubin Alkaline Phosphatase Lactate Dehydrogenase Total Creatine Kinase CK-MB (CK-2) Rel Index Troponin T 0.113 H* C-Reactive Protein Total Protein Albumin Prealbumin LDL Cholesterol Direct Arterial Blood Glucose Arterial Blood Ionized Calcium Urine WBC (Auto) 03/23/20 03/23/20 03/23/20 01:47 06:21 07:57 WBC RBC Hgb Hct MCV MCH RDW Plt Count Lymph % (Auto) Lymph # (Auto) [place] # (Auto) Seg Neutrophils % Seg Neuts % (Manual) Lymphocytes % (Manual) Monocytes % (Manual) Basophils % (Manual) Seg Neutrophils # Seg Neutrophils # Man Lymphocytes # (Manual) Monocytes # (Manual) Eosinophils # (Manual) Basophils # (Manual) PT INR D-Dimer ABG pH POC ABG pCO2 POC ABG pO2 ABG pO2 ABG HCO3 ABG O2 Saturation ABG Base Excess ABG Hemoglobin ABG Oxyhemoglobin ABG Potassium ABG Glucose Oxyhemoglobin Carboxyhemoglobin Sodium Potassium Chloride Carbon Dioxide BUN Creatinine Glucose POC Glucose 130 H Calcium Ferritin Total Bilirubin Alkaline Phosphatase Lactate Dehydrogenase Total Creatine Kinase CK-MB (CK-2) Rel Index Troponin T 0.143 H* D 0.105 H* D C-Reactive Protein Total Protein Albumin Prealbumin LDL Cholesterol Direct Arterial Blood Glucose Arterial Blood Ionized Calcium Urine WBC (Auto) 03/23/20 03/24/20 03/24/20 12:02 05:33 07:15 WBC 18.0 H RBC Hgb 11.0 L Hct 34.0 L MCV MCH RDW 17.4 H Plt Count 520 H Lymph % (Auto) Lymph # (Auto) [place] # (Auto) Seg Neutrophils % Seg Neuts % (Manual) 88.0 H Lymphocytes % (Manual) 7.0 L Monocytes % (Manual) Basophils % (Manual) Seg Neutrophils # Seg Neutrophils # Man 15.8 H Lymphocytes # (Manual) Monocytes # (Manual) Eosinophils # (Manual) Basophils # (Manual) PT INR D-Dimer ABG pH POC ABG pCO2 POC ABG pO2 ABG pO2 ABG HCO3 ABG O2 Saturation ABG Base Excess ABG Hemoglobin ABG Oxyhemoglobin ABG Potassium ABG Glucose Oxyhemoglobin Carboxyhemoglobin Sodium Potassium Chloride Carbon Dioxide BUN Creatinine Glucose POC Glucose 137 H 112 H Calcium Ferritin Total Bilirubin Alkaline Phosphatase Lactate Dehydrogenase Total Creatine Kinase CK-MB (CK-2) Rel Index Troponin T C-Reactive Protein Total Protein Albumin Prealbumin LDL Cholesterol Direct Arterial Blood Glucose Arterial Blood Ionized Calcium Urine WBC (Auto) 03/24/20 03/24/20 03/24/20 07:15 11:22 23:30 WBC RBC Hgb Hct MCV MCH RDW Plt Count Lymph % (Auto) Lymph # (Auto) [place] # (Auto) Seg Neutrophils % Seg Neuts % (Manual) Lymphocytes % (Manual) Monocytes % (Manual) Basophils % (Manual) Seg Neutrophils # Seg Neutrophils # Man Lymphocytes # (Manual) Monocytes # (Manual) Eosinophils # (Manual) Basophils # (Manual) PT INR D-Dimer ABG pH POC ABG pCO2 POC ABG pO2 ABG pO2 ABG HCO3 ABG O2 Saturation ABG Base Excess ABG Hemoglobin ABG Oxyhemoglobin ABG Potassium ABG Glucose Oxyhemoglobin Carboxyhemoglobin Sodium Potassium Chloride 96.6 L Carbon Dioxide 38 H BUN Creatinine < 0.2 L Glucose 141 H POC Glucose 130 H 120 H Calcium Ferritin Total Bilirubin Alkaline Phosphatase Lactate Dehydrogenase Total Creatine Kinase CK-MB (CK-2) Rel Index Troponin T C-Reactive Protein Total Protein Albumin Prealbumin LDL Cholesterol Direct Arterial Blood Glucose Arterial Blood Ionized Calcium Urine WBC (Auto) 03/25/20 03/25/20 03/25/20 05:48 17:53 23:18 WBC RBC Hgb Hct MCV MCH RDW Plt Count Lymph % (Auto) Lymph # (Auto) [place] # (Auto) Seg Neutrophils % Seg Neuts % (Manual) Lymphocytes % (Manual) Monocytes % (Manual) Basophils % (Manual) Seg Neutrophils # Seg Neutrophils # Man Lymphocytes # (Manual) Monocytes # (Manual) Eosinophils # (Manual) Basophils # (Manual) PT INR D-Dimer ABG pH POC ABG pCO2 POC ABG pO2 ABG pO2 ABG HCO3 ABG O2 Saturation ABG Base Excess ABG Hemoglobin ABG Oxyhemoglobin ABG Potassium ABG Glucose Oxyhemoglobin Carboxyhemoglobin Sodium Potassium Chloride Carbon Dioxide BUN Creatinine Glucose POC Glucose 124 H 109 H 131 H Calcium Ferritin Total Bilirubin Alkaline Phosphatase Lactate Dehydrogenase Total Creatine Kinase CK-MB (CK-2) Rel Index Troponin T C-Reactive Protein Total Protein Albumin Prealbumin LDL Cholesterol Direct Arterial Blood Glucose Arterial Blood Ionized Calcium Urine WBC (Auto) 03/26/20 03/26/20 03/26/20 05:21 08:49 08:49 WBC 19.7 H RBC Hgb 10.7 L Hct 33.5 L MCV MCH 27 L RDW 17.1 H Plt Count 480 H Lymph % (Auto) 5.7 L Lymph # (Auto) 1.1 L [place] # (Auto) 1.2 H Seg Neutrophils % 87.7 H Seg Neuts % (Manual) Lymphocytes % (Manual) Monocytes % (Manual) Basophils % (Manual) Seg Neutrophils # 17.2 H Seg Neutrophils # Man Lymphocytes # (Manual) Monocytes # (Manual) Eosinophils # (Manual) Basophils # (Manual) PT INR D-Dimer ABG pH POC ABG pCO2 POC ABG pO2 ABG pO2 ABG HCO3 ABG O2 Saturation ABG Base Excess ABG Hemoglobin ABG Oxyhemoglobin ABG Potassium ABG Glucose Oxyhemoglobin Carboxyhemoglobin Sodium Potassium Chloride 97.2 L Carbon Dioxide 36 H BUN Creatinine < 0.2 L Glucose 127 H POC Glucose 116 H Calcium Ferritin Total Bilirubin Alkaline Phosphatase Lactate Dehydrogenase Total Creatine Kinase CK-MB (CK-2) Rel Index Troponin T C-Reactive Protein Total Protein Albumin Prealbumin LDL Cholesterol Direct Arterial Blood Glucose Arterial Blood Ionized Calcium Urine WBC (Auto) 03/26/20 03/26/20 03/26/20 11:38 18:44 23:06 WBC RBC Hgb Hct MCV MCH RDW Plt Count Lymph % (Auto) Lymph # (Auto) [place] # (Auto) Seg Neutrophils % Seg Neuts % (Manual) Lymphocytes % (Manual) Monocytes % (Manual) Basophils % (Manual) Seg Neutrophils # Seg Neutrophils # Man Lymphocytes # (Manual) Monocytes # (Manual) Eosinophils # (Manual) Basophils # (Manual) PT INR D-Dimer ABG pH POC ABG pCO2 POC ABG pO2 ABG pO2 ABG HCO3 ABG O2 Saturation ABG Base Excess ABG Hemoglobin ABG Oxyhemoglobin ABG Potassium ABG Glucose Oxyhemoglobin Carboxyhemoglobin Sodium Potassium Chloride Carbon Dioxide BUN Creatinine Glucose POC Glucose 120 H 111 H 134 H Calcium Ferritin Total Bilirubin Alkaline Phosphatase Lactate Dehydrogenase Total Creatine Kinase CK-MB (CK-2) Rel Index Troponin T C-Reactive Protein Total Protein Albumin Prealbumin LDL Cholesterol Direct Arterial Blood Glucose Arterial Blood Ionized Calcium Urine WBC (Auto) 03/27/20 03/27/20 03/27/20 05:41 05:59 05:59 WBC 18.6 H RBC Hgb 10.1 L Hct 31.4 L MCV MCH RDW 17.2 H Plt Count Lymph % (Auto) 8.0 L Lymph # (Auto) [place] # (Auto) 1.2 H Seg Neutrophils % 84.7 H Seg Neuts % (Manual) Lymphocytes % (Manual) Monocytes % (Manual) Basophils % (Manual) Seg Neutrophils # 15.8 H Seg Neutrophils # Man Lymphocytes # (Manual) Monocytes # (Manual) Eosinophils # (Manual) Basophils # (Manual) PT INR D-Dimer ABG pH POC ABG pCO2 POC ABG pO2 ABG pO2 ABG HCO3 ABG O2 Saturation ABG Base Excess ABG Hemoglobin ABG Oxyhemoglobin ABG Potassium ABG Glucose Oxyhemoglobin Carboxyhemoglobin Sodium Potassium Chloride Carbon Dioxide 34 H BUN Creatinine < 0.2 L Glucose 127 H POC Glucose 129 H Calcium Ferritin Total Bilirubin Alkaline Phosphatase Lactate Dehydrogenase Total Creatine Kinase CK-MB (CK-2) Rel Index Troponin T C-Reactive Protein Total Protein Albumin Prealbumin LDL Cholesterol Direct Arterial Blood Glucose Arterial Blood Ionized Calcium Urine WBC (Auto) 03/27/20 03/27/20 03/28/20 17:28 23:22 05:23 WBC RBC Hgb Hct MCV MCH RDW Plt Count Lymph % (Auto) Lymph # (Auto) [place] # (Auto) Seg Neutrophils % Seg Neuts % (Manual) Lymphocytes % (Manual) Monocytes % (Manual) Basophils % (Manual) Seg Neutrophils # Seg Neutrophils # Man Lymphocytes # (Manual) Monocytes # (Manual) Eosinophils # (Manual) Basophils # (Manual) PT INR D-Dimer ABG pH POC ABG pCO2 POC ABG pO2 ABG pO2 ABG HCO3 ABG O2 Saturation ABG Base Excess ABG Hemoglobin ABG Oxyhemoglobin ABG Potassium ABG Glucose Oxyhemoglobin Carboxyhemoglobin Sodium Potassium Chloride Carbon Dioxide BUN Creatinine Glucose POC Glucose 108 H 119 H 129 H Calcium Ferritin Total Bilirubin Alkaline Phosphatase Lactate Dehydrogenase Total Creatine Kinase CK-MB (CK-2) Rel Index Troponin T C-Reactive Protein Total Protein Albumin Prealbumin LDL Cholesterol Direct Arterial Blood Glucose Arterial Blood Ionized Calcium Urine WBC (Auto) 03/28/20 03/28/20 03/28/20 10:28 10:28 11:36 WBC 23.6 H RBC 3.62 L Hgb 10.0 L Hct 30.8 L MCV MCH RDW 16.4 H Plt Count Lymph % (Auto) Lymph # (Auto) [place] # (Auto) Seg Neutrophils % Seg Neuts % (Manual) 89.0 H Lymphocytes % (Manual) 5.0 L Monocytes % (Manual) Basophils % (Manual) Seg Neutrophils # Seg Neutrophils # Man 21.0 H Lymphocytes # (Manual) Monocytes # (Manual) 1.2 H Eosinophils # (Manual) Basophils # (Manual) 0.2 H PT INR D-Dimer ABG pH POC ABG pCO2 POC ABG pO2 ABG pO2 ABG HCO3 ABG O2 Saturation ABG Base Excess ABG Hemoglobin ABG Oxyhemoglobin ABG Potassium ABG Glucose Oxyhemoglobin Carboxyhemoglobin Sodium 134 L Potassium Chloride 94.2 L Carbon Dioxide 35 H BUN Creatinine < 0.2 L Glucose 134 H POC Glucose Calcium Ferritin Total Bilirubin Alkaline Phosphatase Lactate Dehydrogenase Total Creatine Kinase CK-MB (CK-2) Rel Index Troponin T C-Reactive Protein Total Protein Albumin Prealbumin LDL Cholesterol Direct Arterial Blood Glucose Arterial Blood Ionized Calcium Urine WBC (Auto) 39.0 H 03/28/20 03/28/20 03/28/20 11:51 17:08 17:17 WBC RBC Hgb Hct MCV MCH RDW Plt Count Lymph % (Auto) Lymph # (Auto) [place] # (Auto) Seg Neutrophils % Seg Neuts % (Manual) Lymphocytes % (Manual) Monocytes % (Manual) Basophils % (Manual) Seg Neutrophils # Seg Neutrophils # Man Lymphocytes # (Manual) Monocytes # (Manual) Eosinophils # (Manual) Basophils # (Manual) PT INR D-Dimer ABG pH POC ABG pCO2 POC ABG pO2 ABG pO2 ABG HCO3 ABG O2 Saturation ABG Base Excess ABG Hemoglobin ABG Oxyhemoglobin ABG Potassium ABG Glucose Oxyhemoglobin Carboxyhemoglobin Sodium Potassium Chloride Carbon Dioxide BUN Creatinine Glucose POC Glucose 123 H 112 H Calcium Ferritin Total Bilirubin Alkaline Phosphatase Lactate Dehydrogenase Total Creatine Kinase 47 L CK-MB (CK-2) Rel Index 4.6 H Troponin T 0.090 H C-Reactive Protein Total Protein Albumin Prealbumin LDL Cholesterol Direct Arterial Blood Glucose Arterial Blood Ionized Calcium Urine WBC (Auto) 03/28/20 03/29/20 03/29/20 23:22 05:22 10:58 WBC RBC Hgb Hct MCV MCH RDW Plt Count Lymph % (Auto) Lymph # (Auto) [place] # (Auto) Seg Neutrophils % Seg Neuts % (Manual) Lymphocytes % (Manual) Monocytes % (Manual) Basophils % (Manual) Seg Neutrophils # Seg Neutrophils # Man Lymphocytes # (Manual) Monocytes # (Manual) Eosinophils # (Manual) Basophils # (Manual) PT INR D-Dimer ABG pH POC ABG pCO2 POC ABG pO2 ABG pO2 ABG HCO3 ABG O2 Saturation ABG Base Excess ABG Hemoglobin ABG Oxyhemoglobin ABG Potassium ABG Glucose Oxyhemoglobin Carboxyhemoglobin Sodium Potassium Chloride Carbon Dioxide BUN Creatinine Glucose POC Glucose 122 H 116 H 133 H Calcium Ferritin Total Bilirubin Alkaline Phosphatase Lactate Dehydrogenase Total Creatine Kinase CK-MB (CK-2) Rel Index Troponin T C-Reactive Protein Total Protein Albumin Prealbumin LDL Cholesterol Direct Arterial Blood Glucose Arterial Blood Ionized Calcium Urine WBC (Auto) 03/29/20 03/29/20 03/30/20 17:18 23:14 04:57 WBC RBC Hgb Hct MCV MCH RDW Plt Count Lymph % (Auto) Lymph # (Auto) [place] # (Auto) Seg Neutrophils % Seg Neuts % (Manual) Lymphocytes % (Manual) Monocytes % (Manual) Basophils % (Manual) Seg Neutrophils # Seg Neutrophils # Man Lymphocytes # (Manual) Monocytes # (Manual) Eosinophils # (Manual) Basophils # (Manual) PT INR D-Dimer ABG pH POC ABG pCO2 POC ABG pO2 ABG pO2 ABG HCO3 ABG O2 Saturation ABG Base Excess ABG Hemoglobin ABG Oxyhemoglobin ABG Potassium ABG Glucose Oxyhemoglobin Carboxyhemoglobin Sodium Potassium Chloride Carbon Dioxide BUN Creatinine Glucose POC Glucose 111 H 114 H 130 H Calcium Ferritin Total Bilirubin Alkaline Phosphatase Lactate Dehydrogenase Total Creatine Kinase CK-MB (CK-2) Rel Index Troponin T C-Reactive Protein Total Protein Albumin Prealbumin LDL Cholesterol Direct Arterial Blood Glucose Arterial Blood Ionized Calcium Urine WBC (Auto) 03/30/20 03/30/2003/30/20 11:38 14:47 14:47 WBC 19.9 H RBC Hgb 10.9 L Hct 34.4 L MCV MCH 27 L RDW 16.5 H Plt Count 441 H Lymph % (Auto) 6.4 L Lymph # (Auto) [place] # (Auto) 1.4 H Seg Neutrophils % 86.1 H Seg Neuts % (Manual) Lymphocytes % (Manual) Monocytes % (Manual) Basophils % (Manual) Seg Neutrophils # 17.1 H Seg Neutrophils # Man Lymphocytes # (Manual) Monocytes # (Manual) Eosinophils # (Manual) Basophils # (Manual) PT INR D-Dimer ABG pH POC ABG pCO2 POC ABG pO2 ABG pO2 ABG HCO3 ABG O2 Saturation ABG Base Excess ABG Hemoglobin ABG Oxyhemoglobin ABG Potassium ABG Glucose Oxyhemoglobin Carboxyhemoglobin Sodium 133 L Potassium Chloride 94.6 L Carbon Dioxide 33 H BUN Creatinine < 0.2 L Glucose 194 H POC Glucose 139 H Calcium Ferritin Total Bilirubin Alkaline Phosphatase Lactate Dehydrogenase Total Creatine Kinase CK-MB (CK-2) Rel Index Troponin T C-Reactive Protein Total Protein Albumin 2.8 L Prealbumin LDL Cholesterol Direct Arterial Blood Glucose Arterial Blood Ionized Calcium Urine WBC (Auto) 03/30/20 03/31/20 03/31/20 17:07 05:02 15:21 WBC RBC Hgb Hct MCV MCH RDW Plt Count Lymph % (Auto) Lymph # (Auto) [place] # (Auto) Seg Neutrophils % Seg Neuts % (Manual) Lymphocytes % (Manual) Monocytes % (Manual) Basophils % (Manual) Seg Neutrophils # Seg Neutrophils # Man Lymphocytes # (Manual) Monocytes # (Manual) Eosinophils # (Manual) Basophils # (Manual) PT INR D-Dimer ABG pH POC ABG pCO2 POC ABG pO2 ABG pO2 ABG HCO3 ABG O2 Saturation ABG Base Excess ABG Hemoglobin ABG Oxyhemoglobin ABG Potassium ABG Glucose Oxyhemoglobin Carboxyhemoglobin Sodium Potassium Chloride Carbon Dioxide BUN Creatinine Glucose POC Glucose 163 H 108 H 110 H Calcium Ferritin Total Bilirubin Alkaline Phosphatase Lactate Dehydrogenase Total Creatine Kinase CK-MB (CK-2) Rel Index Troponin T C-Reactive Protein Total Protein Albumin Prealbumin LDL Cholesterol Direct Arterial Blood Glucose Arterial Blood Ionized Calcium Urine WBC (Auto) 03/31/20 03/31/20 04/01/20 17:58 23:19 05:09 WBC RBC Hgb Hct MCV MCH RDW Plt Count Lymph % (Auto) Lymph # (Auto) [place] # (Auto) Seg Neutrophils % Seg Neuts % (Manual) Lymphocytes % (Manual) Monocytes % (Manual) Basophils % (Manual) Seg Neutrophils # Seg Neutrophils # Man Lymphocytes # (Manual) Monocytes # (Manual) Eosinophils # (Manual) Basophils # (Manual) PT INR D-Dimer ABG pH POC ABG pCO2 POC ABG pO2 ABG pO2 ABG HCO3 ABG O2 Saturation ABG Base Excess ABG Hemoglobin ABG Oxyhemoglobin ABG Potassium ABG Glucose Oxyhemoglobin Carboxyhemoglobin Sodium Potassium Chloride Carbon Dioxide BUN Creatinine Glucose POC Glucose 110 H 131 H 124 H Calcium Ferritin Total Bilirubin Alkaline Phosphatase Lactate Dehydrogenase Total Creatine Kinase CK-MB (CK-2) Rel Index Troponin T C-Reactive Protein Total Protein Albumin Prealbumin LDL Cholesterol Direct Arterial Blood Glucose Arterial Blood Ionized Calcium Urine WBC (Auto) 04/01/20 04/01/20 04/01/20 11:50 17:01 23:21 WBC RBC Hgb Hct MCV MCH RDW Plt Count Lymph % (Auto) Lymph # (Auto) [place] # (Auto) Seg Neutrophils % Seg Neuts % (Manual) Lymphocytes % (Manual) Monocytes % (Manual) Basophils % (Manual) Seg Neutrophils # Seg Neutrophils # Man Lymphocytes # (Manual) Monocytes # (Manual) Eosinophils # (Manual) Basophils # (Manual) PT INR D-Dimer ABG pH POC ABG pCO2 POC ABG pO2 ABG pO2 ABG HCO3 ABG O2 Saturation ABG Base Excess ABG Hemoglobin ABG Oxyhemoglobin ABG Potassium ABG Glucose Oxyhemoglobin Carboxyhemoglobin Sodium Potassium Chloride Carbon Dioxide BUN Creatinine Glucose POC Glucose 136 H 115 H 124 H Calcium Ferritin Total Bilirubin Alkaline Phosphatase Lactate Dehydrogenase Total Creatine Kinase CK-MB (CK-2) Rel Index Troponin T C-Reactive Protein Total Protein Albumin Prealbumin LDL Cholesterol Direct Arterial Blood Glucose Arterial Blood Ionized Calcium Urine WBC (Auto) 04/02/20 04/02/20 04/02/20 05:27 11:58 17:58 WBC RBC Hgb Hct MCV MCH RDW Plt Count Lymph % (Auto) Lymph # (Auto) [place] # (Auto) Seg Neutrophils % Seg Neuts % (Manual) Lymphocytes % (Manual) Monocytes % (Manual) Basophils % (Manual) Seg Neutrophils # Seg Neutrophils # Man Lymphocytes # (Manual) Monocytes # (Manual) Eosinophils # (Manual) Basophils # (Manual) PT INR D-Dimer ABG pH POC ABG pCO2 POC ABG pO2 ABG pO2 ABG HCO3 ABG O2 Saturation ABG Base Excess ABG Hemoglobin ABG Oxyhemoglobin ABG Potassium ABG Glucose Oxyhemoglobin Carboxyhemoglobin Sodium Potassium Chloride Carbon Dioxide BUN Creatinine Glucose POC Glucose 117 H 133 H 122 H Calcium Ferritin Total Bilirubin Alkaline Phosphatase Lactate Dehydrogenase Total Creatine Kinase CK-MB (CK-2) Rel Index Troponin T C-Reactive Protein Total Protein Albumin Prealbumin LDL Cholesterol Direct Arterial Blood Glucose Arterial Blood Ionized Calcium Urine WBC (Auto) 04/02/20 04/03/20 04/03/20 23:12 05:11 11:11 WBC RBC Hgb Hct MCV MCH RDW Plt Count Lymph % (Auto) Lymph # (Auto) [place] # (Auto) Seg Neutrophils % Seg Neuts % (Manual) Lymphocytes % (Manual) Monocytes % (Manual) Basophils % (Manual) Seg Neutrophils # Seg Neutrophils # Man Lymphocytes # (Manual) Monocytes # (Manual) Eosinophils # (Manual) Basophils # (Manual) PT INR D-Dimer ABG pH POC ABG pCO2 POC ABG pO2 ABG pO2 ABG HCO3 ABG O2 Saturation ABG Base Excess ABG Hemoglobin ABG Oxyhemoglobin ABG Potassium ABG Glucose Oxyhemoglobin Carboxyhemoglobin Sodium Potassium Chloride Carbon Dioxide BUN Creatinine Glucose POC Glucose 130 H 139 H 136 H Calcium Ferritin Total Bilirubin Alkaline Phosphatase Lactate Dehydrogenase Total Creatine Kinase CK-MB (CK-2) Rel Index Troponin T C-Reactive Protein Total Protein Albumin Prealbumin LDL Cholesterol Direct Arterial Blood Glucose Arterial Blood Ionized Calcium Urine WBC (Auto) 04/03/20 04/03/20 04/04/20 16:51 23:25 05:29 WBC RBC Hgb Hct MCV MCH RDW Plt Count Lymph % (Auto) Lymph # (Auto) [place] # (Auto) Seg Neutrophils % Seg Neuts % (Manual) Lymphocytes % (Manual) Monocytes % (Manual) Basophils % (Manual) Seg Neutrophils # Seg Neutrophils # Man Lymphocytes # (Manual) Monocytes # (Manual) Eosinophils # (Manual) Basophils # (Manual) PT INR D-Dimer ABG pH POC ABG pCO2 POC ABG pO2 ABG pO2 ABG HCO3 ABG O2 Saturation ABG Base Excess ABG Hemoglobin ABG Oxyhemoglobin ABG Potassium ABG Glucose Oxyhemoglobin Carboxyhemoglobin Sodium Potassium Chloride Carbon Dioxide BUN Creatinine Glucose POC Glucose 118 H 111 H 126 H Calcium Ferritin Total Bilirubin Alkaline Phosphatase Lactate Dehydrogenase Total Creatine Kinase CK-MB (CK-2) Rel Index Troponin T C-Reactive Protein Total Protein Albumin Prealbumin LDL Cholesterol Direct Arterial Blood Glucose Arterial Blood Ionized Calcium Urine WBC (Auto) 04/04/20 04/04/20 04/04/20 11:47 17:41 23:05 WBC RBC Hgb Hct MCV MCH RDW Plt Count Lymph % (Auto) Lymph # (Auto) [place] # (Auto) Seg Neutrophils % Seg Neuts % (Manual) Lymphocytes % (Manual) Monocytes % (Manual) Basophils % (Manual) Seg Neutrophils # Seg Neutrophils # Man Lymphocytes # (Manual) Monocytes # (Manual) Eosinophils # (Manual) Basophils # (Manual) PT INR D-Dimer ABG pH POC ABG pCO2 POC ABG pO2 ABG pO2 ABG HCO3 ABG O2 Saturation ABG Base Excess ABG Hemoglobin ABG Oxyhemoglobin ABG Potassium ABG Glucose Oxyhemoglobin Carboxyhemoglobin Sodium Potassium Chloride Carbon Dioxide BUN Creatinine Glucose POC Glucose 123 H 120 H 119 H Calcium Ferritin Total Bilirubin Alkaline Phosphatase Lactate Dehydrogenase Total Creatine Kinase CK-MB (CK-2) Rel Index Troponin T C-Reactive Protein Total Protein Albumin Prealbumin LDL Cholesterol Direct Arterial Blood Glucose Arterial Blood Ionized Calcium Urine WBC (Auto) 04/05/20 04/05/20 04/05/20 05:14 12:16 18:48 WBC RBC Hgb Hct MCV MCH RDW Plt Count Lymph % (Auto) Lymph # (Auto) [place] # (Auto) Seg Neutrophils % Seg Neuts % (Manual) Lymphocytes % (Manual) Monocytes % (Manual) Basophils % (Manual) Seg Neutrophils # Seg Neutrophils # Man Lymphocytes # (Manual) Monocytes # (Manual) Eosinophils # (Manual) Basophils # (Manual) PT INR D-Dimer ABG pH POC ABG pCO2 POC ABG pO2 ABG pO2 ABG HCO3 ABG O2 Saturation ABG Base Excess ABG Hemoglobin ABG Oxyhemoglobin ABG Potassium ABG Glucose Oxyhemoglobin Carboxyhemoglobin Sodium Potassium Chloride Carbon Dioxide BUN Creatinine Glucose POC Glucose 123 H 148 H 106 H Calcium Ferritin Total Bilirubin Alkaline Phosphatase Lactate Dehydrogenase Total Creatine Kinase CK-MB (CK-2) Rel Index Troponin T C-Reactive Protein Total Protein Albumin Prealbumin LDL Cholesterol Direct Arterial Blood Glucose Arterial Blood Ionized Calcium Urine WBC (Auto) 04/06/20 04/06/20 04/06/20 00:47 03:26 08:24 WBC RBC Hgb Hct MCV MCH RDW Plt Count Lymph % (Auto) Lymph # (Auto) [place] # (Auto) Seg Neutrophils % Seg Neuts % (Manual) Lymphocytes % (Manual) Monocytes % (Manual) Basophils % (Manual) Seg Neutrophils # Seg Neutrophils # Man Lymphocytes # (Manual) Monocytes # (Manual) Eosinophils # (Manual) Basophils # (Manual) PT INR D-Dimer ABG pH POC ABG pCO2 POC ABG pO2 ABG pO2 ABG HCO3 ABG O2 Saturation ABG Base Excess ABG Hemoglobin ABG Oxyhemoglobin ABG Potassium ABG Glucose Oxyhemoglobin Carboxyhemoglobin Sodium Potassium Chloride Carbon Dioxide BUN Creatinine Glucose POC Glucose 129 H 134 H 131 H Calcium Ferritin Total Bilirubin Alkaline Phosphatase Lactate Dehydrogenase Total Creatine Kinase CK-MB (CK-2) Rel Index Troponin T C-Reactive Protein Total Protein Albumin Prealbumin LDL Cholesterol Direct Arterial Blood Glucose Arterial Blood Ionized Calcium Urine WBC (Auto) 04/06/20 04/06/20 11:16 16:27 WBC RBC Hgb Hct MCV MCH RDW Plt Count Lymph % (Auto) Lymph # (Auto) [place] # (Auto) Seg Neutrophils % Seg Neuts % (Manual) Lymphocytes % (Manual) Monocytes % (Manual) Basophils % (Manual) Seg Neutrophils # Seg Neutrophils # Man Lymphocytes # (Manual) Monocytes # (Manual) Eosinophils # (Manual) Basophils # (Manual) PT INR D-Dimer ABG pH POC ABG pCO2 POC ABG pO2 ABG pO2 ABG HCO3 ABG O2 Saturation ABG Base Excess ABG Hemoglobin ABG Oxyhemoglobin ABG Potassium ABG Glucose Oxyhemoglobin Carboxyhemoglobin Sodium Potassium Chloride Carbon Dioxide BUN Creatinine Glucose POC Glucose 131 H 107 H Calcium Ferritin Total Bilirubin Alkaline Phosphatase Lactate Dehydrogenase Total Creatine Kinase CK-MB (CK-2) Rel Index Troponin T C-Reactive Protein Total Protein Albumin Prealbumin LDL Cholesterol Direct Arterial Blood Glucose Arterial Blood Ionized Calcium Urine WBC (Auto) Allied health notes reviewed: RT
[2020-04-06] MEDS: ACETAMINOPHEN 325 MG TAB PO PRN (22:04)
[2020-04-06] MEDS: ENOXAPARIN 40 MG/0.4 ML INJ SUB-Q SCH (22:07)
[2020-04-06] MEDS: SENNOSIDES 8.6 MG TAB PO SCH (22:09)
[2020-04-06] MEDS: ZOLPIDEM 5 MG TAB PO PRN (23:01)
[2020-04-07] MEDS: GLYCOPYRROLATE 1 MG TAB PO SCH ×3 (09:20→20:09)
--- NOTE | 2020-04-07 09:38 | Progress Note ---
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 Patient was on a trilogy machine for breathing 18/11. EMS arrived, patient had O2 sats in the 80s. EMS attempted to place patient on their CPAP machine, hill john patient did not tolerate. Patient was admitted to the ICU with diagnosis of acute hypoxic respiratory failure and placed on BiPAP. Patient initially tolerated but later deteriorated with respiratory status. CTA chest showed no PE but significant for bilateral pneumonia. Doppler ultrasound also negative for DVT. COVID-19 test ordered. Due to persistent hypoxia, patient was intubated on 02/26/2020 at 1500. Patient now on mechanical ventilation in the ICU. 02/26/2020. Blood cultures are negative x48 hours and Covid testing negative as well. Continue antibiotics per ID recommendations for community-acquired bilateral pneumonia. Cardiology consultation for elevated troponin. Check echocardiogram. 02/27/2020. Events of yesterday noted with asystole following V. fib arrest. Patient currently on AC mode rate 20, tidal volume 400, FiO2 50% and a PEEP of 6. Follow-up echocardiogram for elevated troponin. Cardiology suspects NSTEMI Type 2 in the setting of acute resp failure. Chest CTA and BLE Dopplers neg. we will discontinue Decadron given the Covid PCR is negative. 02/25/2020. CTA of the chest reveals no PE but does illustrate the bilateral pneumonia. Doppler ultrasound also negative for DVT. Blood cultures are pending. Await COVID-19 testing. Patient currently requiring BiPAP IPAP 24/EPAP 6 with FiO2 of 25%. Continue O2 and BiPAP as clinically indicated. ID and pulmonary consulted. 02/26/2020. Blood cultures are negative x48 hours and Covid testing negative as well. Continue antibiotics per ID recommendations for community-acquired bilateral pneumonia. Cardiology consultation for elevated troponin. Check echocardiogram. 02/27/2020. Events of yesterday noted with asystole following V. fib arrest. Patient currently on AC mode rate 20, tidal volume 400, FiO2 50% and a PEEP of 6. Follow-up echocardiogram for elevated troponin. Cardiology suspects NSTEMI Type 2 in the setting of acute resp failure. Chest CTA and BLE Dopplers neg. we will discontinue Decadron given the Covid PCR is negative. 02/28/2020. I spoke with the sister Felisa Eli who is the power of porcelain waxer regarding advanced directives and she instructed me that she would like to continue with aggressive care at this time. I informed her of the guarded prognosis and high mortality/morbidity and she voiced understanding. Patient currently with AC mode ventilation rate 18, tidal volume 400, FiO2 40% and a PEEP of 6. Continue antibiotics for pneumonia. ID previously consulted. Also consult neurology with regards to ALS. 02/29/2020; patient is intubated and on CPAP patient is alert and oriented. Patient has ALS. Dr. Álvarez spoke with his sister and she wants aggressive care. Continue antibiotics for pneumonia. Neurology consulted for ALS. Prognosis poor 03/01/2020; patient is intubated and on CPAP, patient is alert and oriented. I spoke with his 2 sisters about the management plan. 03/02/2020; patient is intubated and on CPAP. Patient was alert and oriented. I spoke with Dr. mohr and he thinks patient may need mechanical ventilation, likely his disease progressed. Dr. Flowers did debridement this morning. 03/03/2020; patient is intubated and on CPAP, patient was on trilogy and BiPAP at home. Patient has ALS. on spontaneous breathing trial. Patient is alert and oriented but quadriplegic. Patient has severe bilateral pneumonia and is on cefepime and Vanco, ID is following. Patient has sacral decubitus ulcer and debridement was done by Dr. Flowers and there is no osteomyelitis. 03/05. Patient still on broad-spectrum antibiotics. Status post sacral decubitus ulcer debridements-no osteomyelitis. Patient is on AC 25/400/30% PEEP 5. No blood gas results today. 03/06. Plan for tracheostomy by surgery. Still remains intubated. Labs reviewed-sodium 150. Started on free water 200 every 8hr. trend sodium. 03/07: s/p trach placement today, patient placed back on mechanical ventilation with trach. Plan to resume tube feeding with NG tube. Continue to monitor vitals, monitor BMP. 03/08: Patient noted to have distended abdomen with low urinary output. Obtain bladder scan rule out urine retention, UA and urine culture, continue to follow clinically. 03/09: Patient noted to have low blood pressure with SBP as low as 70s. Ordered for 500 mils normal saline bolus. CT abdomen showed bladder outlet obstruction, urology consulted. 03/10: placed on drake by urology o/n, improved urine outpt. cont to monitor BMP. resuded TF - cont free water with TF. wean off from vent as tolerated. 03/11: Vitals stable. cont TF, wean off from vent as tolerated. start on 1/2 NS for hypernatremia - follow BMP 03/12: wean off vent as tolerated, plan for speech eval, cont Tf for now, cont iv fluid 03/13: unable to wean off from vent, unable to do speech therapy eval. will need PEG tube, cont supportive care for now, cont NG tube feeding 03/14: consulted GI for PEg placemnet, cont supportive care. remains on vent at night 03/15: Discussed with GI, plan for PEG tube placement possibly tomorrow. Continue supportive care and wean off from vent as tolerated. Hold Lovenox dose tonight. 03/16: family didnot consent for PEG placement yesterday. I spoke with the daughter today and she is now agreeable for PEG tube. I explained the necessity of the procedure with RN to the patient also and he nodded started on tube feeding, for the procedure. will cont supportive care. planned for PEG tube placement tomorrow. 03/17: s/p PEG placement today, patient tolerated well, cont supportive care 03/18: Started on tube feeding with new PEG tube, continue to wean off vent as tolerated 03/19: cont to monitor with supportive care, wean off vent as tolerated 03/20: Continue to wean off vent as tolerated -but failing weaning trial. Still requiring vent support at night. Currently on PEG tube for tube feed. 03/21. Pt with PSV trials with FiO@ 30%, PEEP 6, PS 10. Currently on PEG tube for tube feed. 03/22/2020. Continue PSV trials per pulmonary. Continue bronchodilators. Patient tolerating tube feedings. Continue Robinul for secretion control. 03/23/2020. Continue PSV trials per pulmonary. Continue bronchodilators. Continue Scopolamine and Robinul for secretion control. Trach care/airway management. Mobility protocols for pressure ulcer prophylaxis. LTAC evaluation per case management 03/24/2020. Continue PSV trials with current settings pressure support 10, PEEP 6 and FiO2 30%. Continue bronchodilators/nebulizer. Continue Scopolamine and Robinul for secretion control. Trach care/airway management. Mobility protocols for pressure ulcer prophylaxis. LTAC evaluation per case management 03/25/2020. Pulmonary to proceed with T-piece trials today. Continue bronchodilators/nebulizer. Continue Scopolamine and Robinul for secretion control. Trach care/airway management. Mobility protocols for pressure ulcer prophylaxis. 03/26/2020. Patient currently with PSV 10/6 at FiO2 of 30%. Continue weaning and T-piece trials per protocol. Continue bronchodilators/nebulizer. Continue Scopolamine and Robinul for secretion control. Trach care/airway management. Mobility protocols for pressure ulcer prophylaxis. Continue tube feeding with aspiration precautions. 03/27/2020. Patient currently with PSV 10/6 at FiO2 of 30%. Continue weaning and T-piece trials per protocol. Continue bronchodilators/nebulizer. Continue Scopolamine and Robinul for secretion control. Trach care/airway management. Mobility protocols for pressure ulcer prophylaxis. Continue tube feeding with aspiration precautions. 03/28. Had temp 100.7F. He has been off antibiotics. Will send blood culture, ua, urine culture and chest xray. Had chest pain overnight and trop was elevated as well. Cardiology to evaluate 03/29. Has back pain due to position. He mentions his chest pain is positional. Has no other complaints. Still on mechanical ventilation 03/30. No chest pain today. Labs reviewed. Discussed chest pain with cardiology and team advised no further work up at this time. Can follow up with cardiology in the office after hospitalization 03/31. Lidocaine patch for lower back pain. 04/01. Discharge planning underway. CM notes reviewed. Discussed with daughter 04/02 - . CM trying to arrange discharge. Continue PSV trials. Discussed with patients significant other 04/04/2020; CM is working for discharge arrangement. Continue PSV trials. 04/05/2020; patient was seen and evaluated this morning and no change from baseline. Continue with PSV trials. Follow with registered nurse supervisor for discharge planning. 04/06/2020;patient was seen and evaluated this morning and no change from baseli ne. Continue with PSV trials. Follow with registered nurse supervisor for discharge planning. 04/07/2020; patient was seen and evaluated this morning and no change from baseline. Continue with PSV trials. Follow with registered nurse supervisor for discharge planning. The high probability of a clinically significant, sudden or life threatening deterioration of the [cardiac and respiratory] system(s) required my full and di rect attention, intervention and personal management. The aggregate critical care time was [32] minutes. This time is in addition to time spent performing reported procedures but includes the following: [x] Data Review and interpretation [x] Patient assessment and monitoring of vital signs [x] Documentation [x] Medication orders and management History Interval history: Patient was seen and evaluated this morning Patient is intubated, on trach Patient is awake Hospitalist Physical - Physical exam Narrative exam: Intubated, on a trach The patient appeared well nourished and normally developed. Vital signs as documented. Head exam is unremarkable. No scleral icterus . Neck is without jugular venous distension, thyromegaly, or carotid bruits. Lungs are clear to auscultation. Cardiac exam reveals regular rate and Rhythm. Abdominal exam reveals normal bowel sounds, nontender, no organomegaly. Extremities are nonedematous and both femoral and pedal pulses are normal. NURSE INFORMATICIST:awake. 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 - Constitutional Vitals: Temp Pulse Resp BP Pulse Ox 98.0 F 111 H 11 L 105/73 97 04/07/20 04:00 04/07/20 08:00 04/07/20 08:00 04/07/20 08:00 04/07/20 08:00 General appearance: Present: mild distress, other (Intubated on mechanical ventilation) HEART Score - HEART Score Troponin: Troponin T 0.090 ng/mL (0.00-0.029) H 03/28/20 17:17 Results - Labs CBC & Chem 7: 03/30/20 14:47 03/30/20 14:47 Labs: Laboratory Last Values WBC 19.9 K/mm3 (4.5-11.0) H 03/30/20 14:47 RBC 4.01 M/mm3 (3.65-5.03) 03/30/20 14:47 Hgb 10.9 gm/dl (11.8-15.2) L 03/30/20 14:47 Hct 34.4 % (35.5-45.6) L 03/30/20 14:47 MCV 86 fl (84-94) 03/30/20 14:47 MCH 27 pg (28-32) L 03/30/20 14:47 MCHC 32 % (32-34) 03/30/20 14:47 RDW 16.5 % (13.2-15.2) H 03/30/20 14:47 Plt Count 441 K/mm3 (140-440) H 03/30/20 14:47 Lymph % (Auto) 6.4 % (13.4-35.0) L 03/30/20 14:47 [place] % (Auto) 7.2 % (0.0-7.3) 03/30/20 14:47 Eos % (Auto) 0.1 % (0.0-4.3) 03/30/20 14:47 Baso % (Auto) 0.2 % (0.0-1.8) 03/30/20 14:47 Lymph # (Auto) 1.3 K/mm3 (1.2-5.4) 03/30/20 14:47 [place] # (Auto) 1.4 K/mm3 (0.0-0.8) H 03/30/20 14:47 Eos # (Auto) 0.0 K/mm3 (0.0-0.4) 03/30/20 14:47 Baso # (Auto) 0.0 K/mm3 (0.0-0.1) 03/30/20 14:47 Add Manual Diff Complete 03/28/20 10:28 Total Counted 100 03/28/20 10:28 Seg Neutrophils % 86.1 % (40.0-70.0) H 03/30/20 14:47 Seg Neuts % (Manual) 89.0 % (40.0-70.0) H 03/28/20 10:28 Band Neutrophils % 0 % 03/28/20 10:28 Lymphocytes % (Manual) 5.0 % (13.4-35.0) L 03/28/20 10:28 Reactive Lymphs % (Man) 0 % 03/28/20 10:28 Monocytes % (Manual) 5.0 % (0.0-7.3) 03/28/20 10:28 Eosinophils % (Manual) 0 % (0.0-4.3) 03/28/20 10:28 Basophils % (Manual) 1.0 % (0.0-1.8) 03/28/20 10:28 Metamyelocytes % 0 % 03/28/20 10:28 Myelocytes % 0 % 03/28/20 10:28 Promyelocytes % 0 % 03/28/20 10:28 Blast Cells % 0 % 03/28/20 10:28 Nucleated RBC % Not Reportable 03/28/20 10:28 Seg Neutrophils # 17.1 K/mm3 (1.8-7.7) H 03/30/20 14:47 Seg Neutrophils # Man 21.0 K/mm3 (1.8-7.7) H 03/28/20 10:28 Band Neutrophils # 0.0 K/mm3 03/28/20 10:28 Lymphocytes # (Manual) 1.2 K/mm3 (1.2-5.4) 03/28/20 10:28 Abs React Lymphs (Man) 0.0 K/mm3 03/28/20 10:28 Monocytes # (Manual) 1.2 K/mm3 (0.0-0.8) H 03/28/20 10:28 Eosinophils # (Manual) 0.0 K/mm3 (0.0-0.4) 03/28/20 10:28 Basophils # (Manual) 0.2 K/mm3 (0.0-0.1) H 03/28/20 10:28 Metamyelocytes # 0.0 K/mm3 03/28/20 10:28 Myelocytes # 0.0 K/mm3 03/28/20 10:28 Promyelocytes # 0.0 K/mm3 03/28/20 10:28 Blast Cells # 0.0 K/mm3 03/28/20 10:28 WBC Morphology Not Reportable 03/28/20 10:28 Hypersegmented Neuts Not Reportable 03/28/20 10:28 Hyposegmented Neuts Not Reportable 03/28/20 10:28 Hypogranular Neuts Not Reportable 03/28/20 10:28 Smudge Cells Not Reportable 03/28/20 10:28 Toxic Granulation 1+ 03/28/20 10:28 Toxic Vacuolation Not Reportable 03/28/20 10:28 Dohle Bodies Not Reportable 03/28/20 10:28 Pelger-Huet Anomaly Not Reportable 03/28/20 10:28 Robert Rods Not Reportable 03/28/20 10:28 Platelet Estimate Consistent w auto 03/28/20 10:28 Clumped Platelets Not Reportable 03/28/20 10:28 Plt Clumps, EDTA Not Reportable 03/28/20 10:28 Large Platelets Not Reportable 03/28/20 10:28 Giant Platelets Not Reportable 03/28/20 10:28 Platelet Satelliting Not Reportable 03/28/20 10:28 Plt Morphology Comment Not Reportable 03/28/20 10:28 RBC Morphology Not Reportable 03/28/20 10:28 Dimorphic RBCs Not Reportable 03/28/20 10:28 Polychromasia Not Reportable 03/28/20 10:28 Hypochromasia Not Reportable 03/28/20 10:28 Poikilocytosis Not Reportable 03/28/20 10:28 Anisocytosis 1+ 03/28/20 10:28 Microcytosis Not Reportable 03/28/20 10:28 Macrocytosis Not Reportable 03/28/20 10:28 Spherocytes Not Reportable 03/28/20 10:28 Pappenheimer Bodies Not Reportable 03/28/20 10:28 Sickle Cells Not Reportable 03/28/20 10:28 Target Cells Not Reportable 03/28/20 10:28 Tear Drop Cells Not Reportable 03/28/20 10:28 Ovalocytes Not Reportable 03/28/20 10:28 Stomatocytes Few 03/17/20 04:40 Helmet Cells Not Reportable 03/28/20 10:28 Gregory-Ramseur Bodies Not Reportable 03/28/20 10:28 Campbell Rings Not Reportable 03/28/20 10:28 Riaz Cells Not Reportable 03/28/20 10:28 Bite Cells Not Reportable 03/28/20 10:28 Crenated Cell Not Reportable 03/28/20 10:28 Elliptocytes Not Reportable 03/28/20 10:28 Acanthocytes (Spur) Not Reportable 03/28/20 10:28 Rouleaux Not Reportable 03/28/20 10:28 Hemoglobin C Crystals Not Reportable 03/28/20 10:28 Schistocytes Not Reportable 03/28/20 10:28 Malaria parasites Not Reportable 03/28/20 10:28 Colton Bodies Not Reportable 03/28/20 10:28 Hem Pathologist Commnt No 03/28/20 10:28 PT 15.6 Sec. (12.2-14.9) H 02/24/20 09:19 INR 1.21 (0.87-1.13) H 02/24/20 09:19 APTT 25.4 Sec. (24.2-36.6) 02/24/20 09:19 D-Dimer 1311.96 ng/mlDDU (0-234) H 02/24/20 09:19 ABG pH 7.371 (7.320-7.450) 03/08/20 12:34 POC ABG pCO2 63.1 mmHg (32.0-48.0) H 03/08/20 12:34 ABG pCO2 60.1 mm Hg 03/06/20 04:34 POC ABG pO2 90.5 mmHg (83-108) 03/08/20 12:34 ABG pO2 88.6 mm Hg (80.0-90.0) 03/06/20 04:34 POC ABG HCO3 35.7 03/08/20 12:34 ABG HCO3 37.9 mmol/L (20.0-26.0) H 03/06/20 04:34 ABG O2 Saturation 97.0 % (95.0-99.0) 03/06/20 04:34 ABG O2 Content 14.3 (0.0-44) 03/06/20 04:34 POC ABG Base Excess 8.7 03/08/20 12:34 ABG Base Excess 11.4 mmol/L (-2.0-3.0) H 03/06/20 04:34 ABG Hemoglobin 10.9 (12.0-17.5) L 03/08/20 12:34 ABG Oxyhemoglobin 95.9 (94-98) 03/08/20 12:34 ABG Carboxyhemoglobin 1.7 % (0.0-5.0) 03/06/20 04:34 ABG Methemoglobin 0.3 (0.0-1.5) 03/08/20 12:34 ABG Sodium 143.6 mmol/L (136.0-145.0) 03/08/20 12:34 ABG Potassium 3.8 mmol/L (3.40-4.50) 03/08/20 12:34 ABG Chloride 102.0 mmol/L (98-107) 03/08/20 12:34 ABG Glucose 176 mg/dL (65-95) H 03/08/20 12:34 Oxyhemoglobin 94.7 % (95.0-99.0) L 03/06/20 04:34 Carboxyhemoglobin 0.7 (0.5-1.5) 03/08/20 12:34 FiO2 30 03/08/20 12:34 Sodium 133 mmol/L (137-145) L 03/30/20 14:47 Potassium 4.7 mmol/L (3.6-5.0) 03/30/20 14:47 Chloride 94.6 mmol/L (98-107) L 03/30/20 14:47 Carbon Dioxide 33 mmol/L (22-30) H 03/30/20 14:47 Anion Gap 10 mmol/L 03/30/20 14:47 BUN 16 mg/dL (9-20) 03/30/20 14:47 Creatinine < 0.2 mg/dL (0.8-1.3) L 03/30/20 14:47 Estimated GFR > 60 ml/min 03/30/20 14:47 BUN/Creatinine Ratio 80 % 03/30/20 14:47 Glucose 194 mg/dL (75-100) H 03/30/20 14:47 POC Glucose 125 mg/dL (70-105) H 04/07/20 05:24 Lactic Acid 1.00 mmol/L (0.7-2.0) 02/24/20 12:07 Calcium 9.1 mg/dL (8.4-10.2) 03/30/20 14:47 Phosphorus 3.30 mg/dL (2.5-4.5) 03/29/20 14:35 Magnesium 2.00 mg/dL (1.7-2.3) 03/29/20 14:35 Ferritin 1715.0 ng/mL (30.0-300.0) H 02/24/20 10:01 Total Bilirubin 0.40 mg/dL (0.1-1.2) 03/30/20 14:47 AST 22 units/L (5-40) 03/30/20 14:47 ALT 16 units/L (7-56) 03/30/20 14:47 Alkaline Phosphatase 78 units/L (35-129) 03/30/20 14:47 Lactate Dehydrogenase 303 units/L (91-180) H 02/24/20 09:19 Total Creatine Kinase 47 units/L (55-170) L 03/28/20 17:17 CK-MB (CK-2) 2.2 ng/mL (0.0-4.0) 03/28/20 17:17 CK-MB (CK-2) Rel Index 4.6 (0-4) H 03/28/20 17:17 Troponin T 0.090 ng/mL (0.00-0.029) H 03/28/20 17:17 C-Reactive Protein 4.70 mg/dL (0.00-1.30) H 02/28/20 11:05 NT-Pro-B Natriuret Pep 48.30 pg/mL (0-900) 02/24/20 09:19 Total Protein 7.7 g/dL (6.3-8.2) 03/30/20 14:47 Albumin 2.8 g/dL (3.9-5) L 03/30/20 14:47 Albumin/Globulin Ratio 0.6 % 03/30/20 14:47 Prealbumin 0.090 g/L (0.200-0.400) L 02/28/20 12:54 Triglycerides 34 mg/dL (2-149) 03/22/20 18:00 Cholesterol 104 mg/dL (50-199) 03/22/20 18:00 LDL Cholesterol Direct 54 mg/dL (50-130) 03/22/20 18:00 HDL Cholesterol 40 mg/dL (40-59) 03/22/20 18:00 Cholesterol/HDL Ratio 2.60 % 03/22/20 18:00 Procalcitonin < 0.05 ng/mL (<0.15) 03/28/20 17:12 Arterial Blood Glucose 176 mg/dL (65-95) H 03/08/20 12:34 Arterial Blood Ionized Calcium 4.5 mg/dL (4.6-5.3) L 03/08/20 12:34 Urine Color Yellow (Yellow) 03/28/20 11:36 Urine Turbidity Hazy (Clear) 03/28/20 11:36 Urine pH 5.0 (5.0-7.0) 03/28/20 11:36 Ur Specific [place] 1.026 (1.003-1.030) 03/28/20 11:36 Urine Protein 100 mg/dl mg/dL (Negative) 03/28/20 11:36 Urine Glucose (UA) Neg mg/dL (Negative) 03/28/20 11:36 Urine Ketones Neg mg/dL (Negative) 03/28/20 11:36 Urine Blood Neg (Negative) 03/28/20 11:36 Urine Nitrite Neg (Negative) 03/28/20 11:36 Urine Bilirubin Neg (Negative) 03/28/20 11:36 Urine Urobilinogen 4.0 mg/dL (<2.0) 03/28/20 11:36 Ur Leukocyte Esterase Mod (Negative) 03/28/20 11:36 Urine WBC (Auto) 39.0 /HPF (0.0-6.0) H 03/28/20 11:36 Urine RBC (Auto) 16.0 /HPF (0.0-6.0) 03/28/20 11:36 U Epithel Cells (Auto) < 1.0 /HPF (0-13.0) 03/08/20 08:57 Urine Bacteria (Auto) 2+ /HPF (Negative) 03/28/20 11:36 Urine Mucus 3+ /HPF 03/28/20 11:36 Urine Yeast (Budding) 2+ /HPF 03/28/20 11:36 Vancomycin Trough 8.0 ug/mL (5.0-20.0) 03/04/20 08:59 Coronavirus (PCR) Negative (Negative) 02/25/20 09:03 - Diagnostic Impressions Diagnostic Impressions: Echocardiogram 02/26/20 10:41 Transthoracic Echocardiogram Indication: Elevated Trop BP: 116/75 HR: 85 Conclusions *Global left ventricular wall motion and contractility are within normal limits. *The estimated ejection fraction is 50-55%. *Abnormal left ventricular diastolic filling is observed, consistent with impaired relaxation. *There is no pericardial effusion. Findings Left Ventricle: The left ventricular chamber size is normal. Global left ventricular wall motion and contractility are within normal limits. Global left ventricular systolic function is normal. The estimated ejection fraction is 50-55%. Abnormal left ventricular diastolic filling is observed, consistent with impaired relaxation. Left Atrium: The left atrial chamber size is normal. Right Ventricle: The right ventricular cavity size is normal. Right Atrium: The right atrial cavity size is normal. Aortic Valve: Mild aortic leaflet calcification is visualized. There is no evidence of aortic regurgitation. Mitral Valve: The mitral valve leaflets are mildly thickened. There is no evidence of mitral regurgitation. Tricuspid Valve: The tricuspid valve leaflets are normal. There is trace tricuspid regurgitation. The right ventricular systolic pressure is calculated at 29 mmHg. Pulmonic Valve: The pulmonic valve is not well visualized. Pericardium: There is no pericardial effusion. Aorta: The aorta appears normal. Venous: The inferior vena cava is dilated. There is less than 50% respiratory change in the inferior vena cava dimension. Measurements Chambers 2D Name Value Normal Range IVSd (2D) 0.97 cm (0.6 - 1.1) LVPWd (2D) 0.93 cm (0.6 - 1.1) LVIDd (2D) 4 cm (3.7 - 5.6) LVIDs (2D) 2.73 cm (2 - 3.8) LV FS (2D) 31.67 % - EF Teichholz (2D) 60.23 % - Ao root diameter (2D) 3.51 cm (2 - 3.7) Volumes/Mass Name Value Normal Range LA ESV SP 4CH (A/L) 8.43 ml - LA ESV SP 2CH (A/L) 18.89 ml - LA ESV BP (A/L) 13.02 ml - LA ESV BP (A/L) index 8.8 ml/m2 - LA ESV SP 4CH (MOD) 7.22 ml - LA ESV SP 2CH (MOD) 18.15 ml - LA ESV BP (MOD) 11.47 ml - LA ESV BP (MOD) index 7.75 ml/m2 - Diastolic/Systolic Function Name Value Normal Range MV E-wave Vmax 0.51 m/sec - MV deceleration time 180.22 msec - MV A-wave Vmax 0.62 m/sec - MV E:A ratio 0.82 ratio - Aortic Valve Name Value Normal Range AV Vmax 1.17 m/sec - AV VTI 19.71 cm - AV peak gradient 5.44 mmHg - AV mean gradient 3.38 mmHg - LVOT diameter 2.26 cm - LVOT Vmax 0.89 m/sec - LVOT VTI 13.72 cm - LVOT peak gradient 3.17 mmHg - LVOT mean gradient 1.67 mmHg - SV LVOT 55.03 ml - SHARAD (continuity Vmax) 3.06 cm2 - SHARAD (continuity VTI) 2.79 cm2 - Tricuspid Valve Name Value Normal Range TR Vmax 2.3 m/sec - TR peak gradient 21 mmHg - RAP 8 mmHg - RVSP 29 mmHg - IVC diameter 2.59 cm (1.2 - 2.3) Pulmonic Valve/Qp:Qs Name Value Normal Range PV acceleration time 68.51 msec - Drake/IV: Voiding Method Indwelling Catheter IV Catheter Type [Left Hand] Peripheral IV IV Catheter Type [Right Hand] Peripheral IV IV Catheter Type [Left Wrist] Peripheral IV IV Catheter Type [Right Peripheral IV Forearm] IV Catheter Type [Right Triple Lumen Cath Internal Jugular] IV Catheter Type [Left Forearm INT / Saline Lock ] IV Catheter Type [Right Triple Lumen Cath Femoral] IV Catheter Type [Right INT / Saline Lock Antecubital] Active Medications - Current Medications Current Medications: Generic Name Dose Route Start Last Admin Trade Name Freq PRN Reason Stop Dose Admin Acetaminophen 650 mg 02/24/20 15:13 04/06/20 22:04 Tylenol PO 650 mg Q4H PRN Administration Pain, Mild (1-3) Albuterol 2.5 mg 02/24/20 15:13 Proventil IH Q4HRT PRN Shortness Of Breath Alprazolam 0.5 mg 03/30/20 14:19 04/06/20 23:20 Xanax PO 0.5 mg Q8H PRN Administration Anxiety Lipase/Protease/Amylase 1 each 02/26/20 11:16 Pancreaze 10,500 Unit FEEDTUBE PRN PRN For Clogged Feeding Tube Baclofen 10 mg 04/03/20 12:00 04/06/20 22:07 Lioresal PO 10 mg BID ALISA Administration Bisacodyl 10 mg 03/12/20 18:00 03/15/20 17:50 Dulcolax LA 10 mg QDAY PRN Administration Bowel Movement Docusate Sodium 100 mg 04/03/20 12:00 04/06/20 22:06 Colace FEEDTUBE 100 mg BID ALISA Administration Enoxaparin Sodium 40 mg 03/20/20 22:00 04/06/20 22:07 Enoxaparin SUB-Q 40 mg QDAY@2200 ALISA Administration Protocol Glycopyrrolate 2 mg 03/26/20 08:00 04/06/20 22:06 Robinul PO 2 mg TID ALISA Administration Lansoprazole 30 mg 02/28/20 10:00 04/06/20 09:06 Prevacid Solutab FEEDTUBE 30 mg QDAY ALISA Administration Lidocaine 1 each 03/31/20 10:00 04/06/20 09:06 Lidoderm 5% TD 1 each QDAY ALISA Administration Metoprolol Tartrate 12.5 mg 02/24/20 22:00 04/06/20 22:07 Metoprolol PO Not Given BID ALISA Morphine Sulfate 2 mg 02/29/20 16:42 04/06/20 13:40 Morphine IV 2 mg Q4H PRN Administration Pain, Moderate (4-6) Pregabalin 150 mg 04/03/20 12:00 04/06/20 22:08 Pregabalin PO 150 mg BID ALISA Administration Scopolamine 1 each 03/03/20 14:00 04/05/20 12:19 Transderm-Scop TD 1 each Q3D ALISA Administration Senna 17.2 mg 04/03/20 22:00 04/06/20 22:09 Senokot PO 17.2 mg QHS ALISA Administration Simple Syrup 15 ml 02/26/20 11:16 Simple Syrup FEEDTUBE PRN PRN Hypoglycemia Simple Syrup 30 ml 02/26/20 11:16 Simple Syrup FEEDTUBE PRN PRN Hypoglycemia Sodium Bicarbonate 325 mg 02/26/20 11:16 Sodium Bicarbonate FEEDTUBE PRN PRN For Clogged Feeding Tube Sodium Hypochlorite 1 applic 03/31/20 13:00 04/06/20 22:06 Dakin's Half Strength TP 1 applicatio BID ALISA Administration Tamsulosin HCl 0.4 mg 03/09/20 18:00 04/06/20 09:06 Flomax PO 0.4 mg QDAY ALISA Administration Zolpidem Tartrate 10 mg 03/31/20 20:15 04/06/20 23:01 Ambien PO 10 mg QHS PRN Administration Sleep Nutrition/Malnutrition Assess - Dietary Evaluation Nutrition/Malnutrition Findings: Nutrition Notes Start: 02/26/20 10:40 Freq: Status: Active Protocol: Document 04/04/20 12:26 AB (Rec: 04/04/20 12:35 AB [id number]) Co-Sign 04/04/20 12:26 LM Nutrition Notes Initial or Follow up Reassessment Current Diagnosis Decubitus(Pressure Ulcer), Sepsis,Respiratory Failure Other Pertinent Diagnosis COVID-19 (-), ALS, pneumonia, Hip/buttock PU Current Diet Vital AF 1.2 at 75ml/hr (goal rate) Labs/Tests Reviewed Pertinent Medications Reviewed Height 6 ft Weight 65.8 kg Jones Body Weight (kg) 80.90 BMI 19.6 Weight Status Appropriate Subjective/Other Information F/U for TF tolerance. TF is running at goal and pt is tolerating it. Pt had BM over night, per nurse. Percent of energy/protein needs met: 100%/100% Burn Absent Trauma Absent GI Symptoms None Skin Integrity/Comment Pressure Ulcer Stage 2 Current % PO Negligible Minimum of two criteria Yes Body Fat Depletion Mild depletion (non-severe) Muscle Mass Mild Depletion (non-severe) Reduced Housekeeping Cleaner Strength Measurably Reduced (severe) #3 Nutrition Diagnosis Malnutrition Diagnosis Progress(for reassessment Continues documentation) #2 Nutrition Diagnosis Inadequate oral intake Diagnosis Progress(for reassessment Continues documentation) #1 Nutrition Diagnosis Increased nutrient needs ( specify in comment below) Diagnosis Progress(for reassessment Continues documentation) Is patient on ventilator? Yes Is Patient Ambulatory and/or Out of Bed No REE-([facility]-confined to bed) [phone] Kcal/Kg value to use for calculation 35 Approximate Energy Requirements Using 2303 kcal/Kg Calculation Used for Recommendations Kcal/kg Additional Notes Protein needs: 88-147 g (1.2-2 g/ kg ABW) Fluid: 1ml/kcal Nutrition Intervention Change Diet Order: Continue TF Nutrition Support: Vital AF 1.2 at 75ml/hr. Flush 200ml q4h For hyponatremia, flush 150 mL q4h Kcal 2,160 Protein (gm) 135 Fluid (mL) 1,460 Add Supplement/Snack (indicate name/kcal Will BID /protein ) Provides kCal: 190 Provides Protein (gm) 5 Goal #1 Meet at least 80% of energy and protein needs via TF Goal #2 Wound healing Anticipated Discharge Needs: Unable to determine at this time Follow-Up By: 04/11/20 Additional Comments F/U for TF tolerance
[2020-04-07] MEDS: TAMSULOSIN 0.4 MG CAP PO SCH (09:47)
[2020-04-07] MEDS: DOCUSATE SODIUM 100 MG/10 ML ORAL LIQD FEEDTUBE SCH ×2 (09:47→23:22)
[2020-04-07] MEDS: PREGABALIN 75 MG CAP PO SCH ×2 (09:47→23:24)
[2020-04-07] MEDS: BACLOFEN 10 MG TAB PO SCH ×2 (09:48→23:24)
[2020-04-07] MEDS: LANSOPRAZOLE 30 MG SOLUTAB FEEDTUBE SCH (09:48)
[2020-04-07] MEDS: METOPROLOL TARTRATE 25 MG TAB PO SCH ×2 (09:48→23:22)
[2020-04-07] MEDS: SODIUM HYPOCHLORITE, DAKIN'S 1/2 STRENGTH (0.25%) 473 ML TOPICAL SOLN TP SCH ×2 (09:49→23:24)
[2020-04-07] MEDS: LIDOCAINE 5% 1 EACH PATCH TD SCH (09:49)
[2020-04-07] MEDS: ALPRAZolam 0.5 MG TAB PO PRN ×2 (10:23→20:09)
[2020-04-07] MEDS: MORPHINE 2 MG/1 ML INJ IV PRN ×3 (10:23→23:27)
--- NOTE | 2020-04-07 13:25 | Progress Note ---
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 Respiratory Failure s/p trach Severe Sepsis with Shock Bilateral Pneumonia (Possible aspiration) History of ALS on Trilogy Oropharyngeal Dysphagia s/p PEG Acute toxic metabolic encephalopathy-resolved Elevated D-dimer Elevated troponin possibly type 2 ischemia Leukocytsois Continue to trend WCC and temperature curve Continue Ambien for sleep at night ATP as tolerated Re-order PT/OT to re-evaluate Continue all supportive care Discharge planning is ongoing - continue daytime PSV as tolerated -He is not tolerating ATP trials and is vent dependant. - ABG, CXR as clinically indicated - continue Robinul & scopolamine for secretion control - Keep K at 4, Mg at 2 and Phos at 2.5 to optimize respiratory muscle function - wound care per RN/WCN, off loading, frequent turning, mobility per facility protocol - wean supplemental oxygen for target O2 sats > 92% - VAP bundle addressed, aspiration precautions, HOB >40 - continue lung protective strategies - continue bronchodilators with pulmonary hygiene per RT - s/p empiric anti-infectives per ID recs (Rocephin and Zithromax) - enteral nutrition at goal rate as tolerated - accuchecks with glycemic control per SSI (While critically ill target blood glucose of 140-180 mg/dL; avoid hypoglycemia) - avoid nephrotoxins, renal dose all medications - avoid benzodiazepines, reduce the possibility of delirium - prn analgesia per CPOT score - Maintenance of sleep-wake cycle, avoid delirium -Continue stress ulcer and VTE prophylaxis (Famotidine and Enoxaparin) -Reardon in place for urinary retention and sacral decubitus ulcer - Monitor hemodynamics closely - continue other care per attending / other consultants CONDITION: FAIR PROGNOSIS: GUARDED CODE STATUS: FULL CODE Subjective Date of service: 04/07/20 Principal diagnosis: Ac on Ch Hypercapnic & hypoxemic Resp Failure; Severe Sepsis; Jamar PNA; ALS Interval history: Patient is seen today for: Acute on Chronic Hypercapnic & hypoxemic Respiratory Failure; Severe Sepsis with Shock; Bilateral Pneumonia (Possible aspiration); History of ALS on Trilogy; Acute toxic metabolic encephalopathy Seen and examined at bedside; 24hour events reviewed; nursing and respiratory care staff consulted; no adverse overnight events reported to me; resting in bed; remains on MVS; s/p trach and PEG Tolerating tube feedings. Tolerating PSV at the bedside, full support at night Asking for some PT/OT- states he was to be taken outside No fevers,no vomiting. Slept well last night. Objective Vital Signs - 12hr 04/07/20 04/07/20 04/07/20 02:00 03:00 04:00 Temperature 98.0 F Pulse Rate 113 H 117 H 120 H Pulse Rate [ 122 H From Monitor] Respiratory 24 20 17 Rate Blood Pressure 102/65 119/83 116/76 O2 Sat by Pulse 92 92 Oximetry O2 Sat by Pulse Oximetry [ Assessment] 04/07/20 04/07/20 04/07/20 04:33 05:00 05:04 Temperature Pulse Rate 115 H 111 H Pulse Rate [ From Monitor] Respiratory 15 Rate Blood Pressure 116/76 118/79 O2 Sat by Pulse 94 90 Oximetry O2 Sat by Pulse 97 Oximetry [ Assessment] 04/07/20 04/07/20 04/07/20 06:00 07:00 08:00 Temperature Pulse Rate 106 H 105 H 106 H Pulse Rate [ 111 H From Monitor] Respiratory 18 14 11 L Rate Blood Pressure 101/75 109/74 105/73 O2 Sat by Pulse 95 96 Oximetry O2 Sat by Pulse 97 Oximetry [ Assessment] 04/07/20 09:48 Temperature Pulse Rate 111 H Pulse Rate [ From Monitor] Respiratory Rate Blood Pressure 105/73 O2 Sat by Pulse Oximetry O2 Sat by Pulse Oximetry [ Assessment] Constitutional: no acute distress, other (thin middle aged male with normal respiratory effort at rest on MVS) Eyes: non-icteric ENT: oropharynx moist, other (S/P Tracheostomy) Neck: supple, no lymphadenopathy, no JVD Effort: mildly labored Ascultation: Bilateral: clear, diminished breath sounds, wheezes, rhonchi Percussion: Bilateral: not dull Cardiovascular: regular rate and rhythm, other (S1,S2, no murmurs) Gastrointestinal: normoactive bowel sounds, soft, non-tender, non-distended, other (+ distended but non tender suprapubis) Integumentary: normal, decubitus ulcer (sacral / gluteal) Extremities: no cyanosis, no edema, pulses normal, other (atrophic looking limbs ) Neurologic: pupils equal and round, other (motor strength in extremities 1-2/5, awake, alert, mouths words to make needs known) Psychiatric: depressed CBC and BMP: 03/30/20 14:47 03/30/20 14:47 ABG, PT/INR, D-dimer: ABG ABG pH 7.371 (7.320-7.450) 03/08/20 12:34 POC ABG pCO2 63.1 mmHg (32.0-48.0) H 03/08/20 12:34 ABG pCO2 60.1 mm Hg 03/06/20 04:34 POC ABG pO2 90.5 mmHg (83-108) 03/08/20 12:34 ABG pO2 88.6 mm Hg (80.0-90.0) 03/06/20 04:34 POC ABG HCO3 35.7 03/08/20 12:34 ABG O2 Saturation 97.0 % (95.0-99.0) 03/06/20 04:34 PT/INR, D-dimer PT 15.6 Sec. (12.2-14.9) H 02/24/20 09:19 INR 1.21 (0.87-1.13) H 02/24/20 09:19 D-Dimer 1311.96 ng/mlDDU (0-234) H 02/24/20 09:19 Abnormal lab findings: Abnormal Labs 02/24/20 02/24/20 02/24/20 09:19 09:19 09:19 WBC 20.2 H RBC 5.05 H Hgb Hct MCV MCH RDW 15.3 H Plt Count Lymph % (Auto) Lymph # (Auto) [place] # (Auto) Seg Neutrophils % Seg Neuts % (Manual) 86.0 H Lymphocytes % (Manual) 1.0 L Monocytes % (Manual) Basophils % (Manual) Seg Neutrophils # Seg Neutrophils # Man 17.4 H Lymphocytes # (Manual) 0.2 L Monocytes # (Manual) Eosinophils # (Manual) Basophils # (Manual) PT 15.6 H INR 1.21 H D-Dimer 1311.96 H ABG pH POC ABG pCO2 POC ABG pO2 ABG pO2 ABG HCO3 ABG O2 Saturation ABG Base Excess ABG Hemoglobin ABG Oxyhemoglobin ABG Potassium ABG Glucose Oxyhemoglobin Carboxyhemoglobin Sodium 135 L Potassium 3.2 L Chloride 92.2 L Carbon Dioxide BUN 6 L Creatinine < 0.2 L Glucose 124 H POC Glucose Calcium Ferritin Total Bilirubin 2.30 H Alkaline Phosphatase 132 H Lactate Dehydrogenase Total Creatine Kinase CK-MB (CK-2) Rel Index Troponin T 0.080 H C-Reactive Protein Total Protein Albumin 3.6 L Prealbumin LDL Cholesterol Direct 41 L Arterial Blood Glucose Arterial Blood Ionized Calcium Urine WBC (Auto) 02/24/20 02/24/20 02/24/20 09:19 09:58 10:01 WBC RBC Hgb Hct MCV MCH RDW Plt Count Lymph % (Auto) Lymph # (Auto) [place] # (Auto) Seg Neutrophils % Seg Neuts % (Manual) Lymphocytes % (Manual) Monocytes % (Manual) Basophils % (Manual) Seg Neutrophils # Seg Neutrophils # Man Lymphocytes # (Manual) Monocytes # (Manual) Eosinophils # (Manual) Basophils # (Manual) PT INR D-Dimer ABG pH 7.176 L* POC ABG pCO2 POC ABG pO2 ABG pO2 91.2 H ABG HCO3 ABG O2 Saturation ABG Base Excess -4.6 L ABG Hemoglobin ABG Oxyhemoglobin ABG Potassium ABG Glucose Oxyhemoglobin 92.6 L Carboxyhemoglobin Sodium Potassium Chloride Carbon Dioxide BUN Creatinine Glucose POC Glucose Calcium Ferritin 1715.0 H Total Bilirubin Alkaline Phosphatase Lactate Dehydrogenase 303 H Total Creatine Kinase CK-MB (CK-2) Rel Index Troponin T C-Reactive Protein 26.10 H Total Protein Albumin Prealbumin LDL Cholesterol Direct Arterial Blood Glucose Arterial Blood Ionized Calcium Urine WBC (Auto) 02/24/20 02/24/20 02/24/20 11:52 13:45 19:35 WBC RBC Hgb Hct MCV MCH RDW Plt Count Lymph % (Auto) Lymph # (Auto) [place] # (Auto) Seg Neutrophils % Seg Neuts % (Manual) Lymphocytes % (Manual) Monocytes % (Manual) Basophils % (Manual) Seg Neutrophils # Seg Neutrophils # Man Lymphocytes # (Manual) Monocytes # (Manual) Eosinophils # (Manual) Basophils # (Manual) PT INR D-Dimer ABG pH 7.051 L* 7.300 L POC ABG pCO2 POC ABG pO2 ABG pO2 94.7 H 75.1 L ABG HCO3 18.0 L ABG O2 Saturation 93.5 L ABG Base Excess -6.8 L -7.8 L ABG Hemoglobin 13.2 L 11.9 L ABG Oxyhemoglobin ABG Potassium ABG Glucose Oxyhemoglobin 91.0 L 92.7 L Carboxyhemoglobin Sodium Potassium Chloride Carbon Dioxide BUN Creatinine Glucose POC Glucose Calcium Ferritin Total Bilirubin Alkaline Phosphatase Lactate Dehydrogenase Total Creatine Kinase CK-MB (CK-2) Rel Index Troponin T 0.034 H D C-Reactive Protein Total Protein Albumin Prealbumin LDL Cholesterol Direct Arterial Blood Glucose Arterial Blood Ionized Calcium Urine WBC (Auto) 02/25/20 02/25/20 02/25/20 04:00 04:00 12:26 WBC 22.9 H RBC Hgb Hct MCV 83 L MCH 27 L RDW Plt Count 468 H Lymph % (Auto) Lymph # (Auto) [place] # (Auto) Seg Neutrophils % Seg Neuts % (Manual) 89.0 H Lymphocytes % (Manual) 7.0 L Monocytes % (Manual) Basophils % (Manual) Seg Neutrophils # Seg Neutrophils # Man 20.4 H Lymphocytes # (Manual) Monocytes # (Manual) Eosinophils # (Manual) Basophils # (Manual) PT INR D-Dimer ABG pH POC ABG pCO2 POC ABG pO2 ABG pO2 ABG HCO3 ABG O2 Saturation ABG Base Excess ABG Hemoglobin ABG Oxyhemoglobin ABG Potassium 2.6 L ABG Glucose 142 H Oxyhemoglobin Carboxyhemoglobin Sodium Potassium 3.2 L Chloride Carbon Dioxide 18 L BUN Creatinine 0.2 L Glucose 114 H POC Glucose Calcium Ferritin Total Bilirubin Alkaline Phosphatase Lactate Dehydrogenase Total Creatine Kinase CK-MB (CK-2) Rel Index Troponin T C-Reactive Protein Total Protein Albumin 3.5 L Prealbumin LDL Cholesterol Direct Arterial Blood Glucose 142 H Arterial Blood Ionized Calcium Urine WBC (Auto) 02/26/20 02/26/20 02/26/20 15:58 17:00 23:43 WBC RBC Hgb Hct MCV MCH RDW Plt Count Lymph % (Auto) Lymph # (Auto) [place] # (Auto) Seg Neutrophils % Seg Neuts % (Manual) Lymphocytes % (Manual) Monocytes % (Manual) Basophils % (Manual) Seg Neutrophils # Seg Neutrophils # Man Lymphocytes # (Manual) Monocytes # (Manual) Eosinophils # (Manual) Basophils # (Manual) PT INR D-Dimer ABG pH 7.502 H POC ABG pCO2 POC ABG pO2 213.6 H ABG pO2 ABG HCO3 ABG O2 Saturation ABG Base Excess ABG Hemoglobin ABG Oxyhemoglobin 99.2 H ABG Potassium 2.9 L ABG Glucose 160 H Oxyhemoglobin Carboxyhemoglobin 0.4 L Sodium Potassium Chloride Carbon Dioxide BUN Creatinine Glucose POC Glucose 189 H 120 H Calcium Ferritin Total Bilirubin Alkaline Phosphatase Lactate Dehydrogenase Total Creatine Kinase CK-MB (CK-2) Rel Index Troponin T C-Reactive Protein Total Protein Albumin Prealbumin LDL Cholesterol Direct Arterial Blood Glucose 160 H Arterial Blood Ionized Calcium 4.5 L Urine WBC (Auto) 02/27/20 02/27/20 02/27/20 05:00 07:04 17:45 WBC RBC Hgb Hct MCV MCH RDW Plt Count Lymph % (Auto) Lymph # (Auto) [place] # (Auto) Seg Neutrophils % Seg Neuts % (Manual) Lymphocytes % (Manual) Monocytes % (Manual) Basophils % (Manual) Seg Neutrophils # Seg Neutrophils # Man Lymphocytes # (Manual) Monocytes # (Manual) Eosinophils # (Manual) Basophils # (Manual) PT INR D-Dimer ABG pH 7.524 H POC ABG pCO2 POC ABG pO2 ABG pO2 ABG HCO3 ABG O2 Saturation ABG Base Excess ABG Hemoglobin ABG Oxyhemoglobin ABG Potassium 3.0 L ABG Glucose 143 H Oxyhemoglobin Carboxyhemoglobin Sodium Potassium Chloride Carbon Dioxide BUN Creatinine Glucose POC Glucose 154 H 175 H Calcium Ferritin Total Bilirubin Alkaline Phosphatase Lactate Dehydrogenase Total Creatine Kinase CK-MB (CK-2) Rel Index Troponin T C-Reactive Protein Total Protein Albumin Prealbumin LDL Cholesterol Direct Arterial Blood Glucose 143 H Arterial Blood Ionized Calcium Urine WBC (Auto) 02/27/20 02/28/20 02/28/20 Unknown 00:21 04:15 WBC 18.7 H RBC Hgb Hct MCV MCH RDW Plt Count Lymph % (Auto) 8.7 L Lymph # (Auto) [place] # (Auto) 1.2 H Seg Neutrophils % 84.6 H Seg Neuts % (Manual) Lymphocytes % (Manual) Monocytes % (Manual) Basophils % (Manual) Seg Neutrophils # 15.9 H Seg Neutrophils # Man Lymphocytes # (Manual) Monocytes # (Manual) Eosinophils # (Manual) Basophils # (Manual) PT INR D-Dimer ABG pH POC ABG pCO2 POC ABG pO2 ABG pO2 ABG HCO3 ABG O2 Saturation ABG Base Excess ABG Hemoglobin ABG Oxyhemoglobin ABG Potassium ABG Glucose Oxyhemoglobin Carboxyhemoglobin Sodium Potassium 2.9 L* Chloride Carbon Dioxide 33 H D BUN Creatinine < 0.2 L Glucose 157 H POC Glucose 134 H Calcium Ferritin Total Bilirubin Alkaline Phosphatase Lactate Dehydrogenase Total Creatine Kinase CK-MB (CK-2) Rel Index Troponin T C-Reactive Protein Total Protein Albumin Prealbumin LDL Cholesterol Direct Arterial Blood Glucose Arterial Blood Ionized Calcium Urine WBC (Auto) 02/28/20 02/28/20 02/28/20 04:15 05:16 05:39 WBC RBC Hgb Hct MCV MCH RDW Plt Count Lymph % (Auto) Lymph # (Auto) [place] # (Auto) Seg Neutrophils % Seg Neuts % (Manual) Lymphocytes % (Manual) Monocytes % (Manual) Basophils % (Manual) Seg Neutrophils # Seg Neutrophils # Man Lymphocytes # (Manual) Monocytes # (Manual) Eosinophils # (Manual) Basophils # (Manual) PT INR D-Dimer ABG pH POC ABG pCO2 POC ABG pO2 ABG pO2 142.9 H ABG HCO3 34.1 H ABG O2 Saturation ABG Base Excess 8.3 H ABG Hemoglobin ABG Oxyhemoglobin ABG Potassium ABG Glucose Oxyhemoglobin Carboxyhemoglobin Sodium 151 H Potassium Chloride Carbon Dioxide 32 H BUN Creatinine 0.2 L Glucose 167 H POC Glucose 138 H Calcium Ferritin Total Bilirubin Alkaline Phosphatase Lactate Dehydrogenase Total Creatine Kinase CK-MB (CK-2) Rel Index Troponin T C-Reactive Protein Total Protein Albumin Prealbumin LDL Cholesterol Direct Arterial Blood Glucose Arterial Blood Ionized Calcium Urine WBC (Auto) 02/28/20 02/28/20 02/28/20 11:05 11:33 12:54 WBC RBC Hgb Hct MCV MCH RDW Plt Count Lymph % (Auto) Lymph # (Auto) [place] # (Auto) Seg Neutrophils % Seg Neuts % (Manual) Lymphocytes % (Manual) Monocytes % (Manual) Basophils % (Manual) Seg Neutrophils # Seg Neutrophils # Man Lymphocytes # (Manual) Monocytes # (Manual) Eosinophils # (Manual) Basophils # (Manual) PT INR D-Dimer ABG pH POC ABG pCO2 POC ABG pO2 ABG pO2 ABG HCO3 ABG O2 Saturation ABG Base Excess ABG Hemoglobin ABG Oxyhemoglobin ABG Potassium ABG Glucose Oxyhemoglobin Carboxyhemoglobin Sodium Potassium Chloride Carbon Dioxide BUN Creatinine Glucose POC Glucose 160 H Calcium Ferritin Total Bilirubin Alkaline Phosphatase Lactate Dehydrogenase Total Creatine Kinase CK-MB (CK-2) Rel Index Troponin T C-Reactive Protein 4.70 H Total Protein Albumin Prealbumin 0.090 L LDL Cholesterol Direct Arterial Blood Glucose Arterial Blood Ionized Calcium Urine WBC (Auto) 02/28/20 02/29/20 02/29/20 17:34 00:44 04:05 WBC 19.6 H RBC Hgb Hct MCV MCH 27 L RDW 15.4 H Plt Count Lymph % (Auto) Lymph # (Auto) [place] # (Auto) Seg Neutrophils % Seg Neuts % (Manual) 86.0 H Lymphocytes % (Manual) 7.0 L Monocytes % (Manual) Basophils % (Manual) Seg Neutrophils # Seg Neutrophils # Man 16.9 H Lymphocytes # (Manual) Monocytes # (Manual) 1.2 H Eosinophils # (Manual) Basophils # (Manual) PT INR D-Dimer ABG pH POC ABG pCO2 POC ABG pO2 ABG pO2 ABG HCO3 ABG O2 Saturation ABG Base Excess ABG Hemoglobin ABG Oxyhemoglobin ABG Potassium ABG Glucose Oxyhemoglobin Carboxyhemoglobin Sodium Potassium Chloride Carbon Dioxide BUN Creatinine Glucose POC Glucose 136 H 156 H Calcium Ferritin Total Bilirubin Alkaline Phosphatase Lactate Dehydrogenase Total Creatine Kinase CK-MB (CK-2) Rel Index Troponin T C-Reactive Protein Total Protein Albumin Prealbumin LDL Cholesterol Direct Arterial Blood Glucose Arterial Blood Ionized Calcium Urine WBC (Auto) 02/29/20 02/29/20 02/29/20 04:05 05:14 05:33 WBC RBC Hgb Hct MCV MCH RDW Plt Count Lymph % (Auto) Lymph # (Auto) [place] # (Auto) Seg Neutrophils % Seg Neuts % (Manual) Lymphocytes % (Manual) Monocytes % (Manual) Basophils % (Manual) Seg Neutrophils # Seg Neutrophils # Man Lymphocytes # (Manual) Monocytes # (Manual) Eosinophils # (Manual) Basophils # (Manual) PT INR D-Dimer ABG pH POC ABG pCO2 54.3 H POC ABG pO2 124.8 H ABG pO2 ABG HCO3 ABG O2 Saturation ABG Base Excess ABG Hemoglobin ABG Oxyhemoglobin ABG Potassium ABG Glucose 185 H Oxyhemoglobin Carboxyhemoglobin Sodium 148 H Potassium Chloride Carbon Dioxide 33 H BUN Creatinine < 0.2 L Glucose 173 H POC Glucose 152 H Calcium Ferritin Total Bilirubin Alkaline Phosphatase Lactate Dehydrogenase Total Creatine Kinase CK-MB (CK-2) Rel Index Troponin T C-Reactive Protein Total Protein Albumin Prealbumin LDL Cholesterol Direct Arterial Blood Glucose 185 H Arterial Blood Ionized Calcium Urine WBC (Auto) 03/01/20 03/01/20 03/01/20 00:00 03:45 04:33 WBC 23.1 H RBC Hgb Hct MCV MCH 27 L RDW 15.3 H Plt Count Lymph % (Auto) Lymph # (Auto) [place] # (Auto) Seg Neutrophils % Seg Neuts % (Manual) 92.0 H Lymphocytes % (Manual) 6.0 L Monocytes % (Manual) Basophils % (Manual) Seg Neutrophils # Seg Neutrophils # Man 21.3 H Lymphocytes # (Manual) Monocytes # (Manual) Eosinophils # (Manual) 0.5 H Basophils # (Manual) PT INR D-Dimer ABG pH 7.492 H POC ABG pCO2 POC ABG pO2 ABG pO2 157.1 H ABG HCO3 32.3 H ABG O2 Saturation ABG Base Excess 8.1 H ABG Hemoglobin 13.2 L ABG Oxyhemoglobin ABG Potassium ABG Glucose Oxyhemoglobin Carboxyhemoglobin Sodium Potassium Chloride Carbon Dioxide BUN Creatinine Glucose POC Glucose 109 H Calcium Ferritin Total Bilirubin Alkaline Phosphatase Lactate Dehydrogenase Total Creatine Kinase CK-MB (CK-2) Rel Index Troponin T C-Reactive Protein Total Protein Albumin Prealbumin LDL Cholesterol Direct Arterial Blood Glucose Arterial Blood Ionized Calcium Urine WBC (Auto) 03/01/20 03/01/20 03/01/20 04:33 05:29 12:32 WBC RBC Hgb Hct MCV MCH RDW Plt Count Lymph % (Auto) Lymph # (Auto) [place] # (Auto) Seg Neutrophils % Seg Neuts % (Manual) Lymphocytes % (Manual) Monocytes % (Manual) Basophils % (Manual) Seg Neutrophils # Seg Neutrophils # Man Lymphocytes # (Manual) Monocytes # (Manual) Eosinophils # (Manual) Basophils # (Manual) PT INR D-Dimer ABG pH POC ABG pCO2 POC ABG pO2 ABG pO2 ABG HCO3 ABG O2 Saturation ABG Base Excess ABG Hemoglobin ABG Oxyhemoglobin ABG Potassium ABG Glucose Oxyhemoglobin Carboxyhemoglobin Sodium 146 H Potassium Chloride Carbon Dioxide 32 H BUN Creatinine < 0.2 L Glucose 120 H POC Glucose 120 H 128 H Calcium Ferritin Total Bilirubin Alkaline Phosphatase Lactate Dehydrogenase Total Creatine Kinase CK-MB (CK-2) Rel Index Troponin T C-Reactive Protein Total Protein Albumin Prealbumin LDL Cholesterol Direct Arterial Blood Glucose Arterial Blood Ionized Calcium Urine WBC (Auto) 03/01/20 03/01/20 03/02/20 17:38 23:46 06:13 WBC RBC Hgb Hct MCV MCH RDW Plt Count Lymph % (Auto) Lymph # (Auto) [place] # (Auto) Seg Neutrophils % Seg Neuts % (Manual) Lymphocytes % (Manual) Monocytes % (Manual) Basophils % (Manual) Seg Neutrophils # Seg Neutrophils # Man Lymphocytes # (Manual) Monocytes # (Manual) Eosinophils # (Manual) Basophils # (Manual) PT INR D-Dimer ABG pH POC ABG pCO2 POC ABG pO2 ABG pO2 ABG HCO3 ABG O2 Saturation ABG Base Excess ABG Hemoglobin ABG Oxyhemoglobin ABG Potassium ABG Glucose Oxyhemoglobin Carboxyhemoglobin Sodium Potassium Chloride Carbon Dioxide BUN Creatinine Glucose POC Glucose 114 H 121 H 120 H Calcium Ferritin Total Bilirubin Alkaline Phosphatase Lactate Dehydrogenase Total Creatine Kinase CK-MB (CK-2) Rel Index Troponin T C-Reactive Protein Total Protein Albumin Prealbumin LDL Cholesterol Direct Arterial Blood Glucose Arterial Blood Ionized Calcium Urine WBC (Auto) 03/02/20 03/02/20 03/03/20 09:47 09:47 10:21 WBC 23.6 H RBC Hgb Hct MCV MCH RDW 15.3 H Plt Count 494 H Lymph % (Auto) Lymph # (Auto) [place] # (Auto) Seg Neutrophils % Seg Neuts % (Manual) 85.0 H Lymphocytes % (Manual) 6.0 L Monocytes % (Manual) Basophils % (Manual) Seg Neutrophils # Seg Neutrophils # Man 20.1 H Lymphocytes # (Manual) Monocytes # (Manual) 1.7 H Eosinophils # (Manual) Basophils # (Manual) PT INR D-Dimer ABG pH POC ABG pCO2 POC ABG pO2 ABG pO2 ABG HCO3 ABG O2 Saturation ABG Base Excess ABG Hemoglobin ABG Oxyhemoglobin ABG Potassium 3.3 L ABG Glucose 158 H Oxyhemoglobin Carboxyhemoglobin Sodium Potassium Chloride Carbon Dioxide BUN Creatinine < 0.2 L Glucose 177 H POC Glucose Calcium Ferritin Total Bilirubin Alkaline Phosphatase Lactate Dehydrogenase Total Creatine Kinase CK-MB (CK-2) Rel Index Troponin T C-Reactive Protein Total Protein Albumin Prealbumin LDL Cholesterol Direct Arterial Blood Glucose 158 H Arterial Blood Ionized Calcium Urine WBC (Auto) 03/03/20 03/04/20 03/04/20 21:30 00:00 12:23 WBC RBC Hgb Hct MCV MCH RDW Plt Count Lymph % (Auto) Lymph # (Auto) [place] # (Auto) Seg Neutrophils % Seg Neuts % (Manual) Lymphocytes % (Manual) Monocytes % (Manual) Basophils % (Manual) Seg Neutrophils # Seg Neutrophils # Man Lymphocytes # (Manual) Monocytes # (Manual) Eosinophils # (Manual) Basophils # (Manual) PT INR D-Dimer ABG pH 7.328 L POC ABG pCO2 POC ABG pO2 ABG pO2 68.4 L ABG HCO3 35.0 H ABG O2 Saturation 93.9 L ABG Base Excess 6.8 H ABG Hemoglobin 12.7 L ABG Oxyhemoglobin ABG Potassium ABG Glucose Oxyhemoglobin 91.9 L Carboxyhemoglobin Sodium Potassium Chloride Carbon Dioxide BUN Creatinine Glucose POC Glucose 187 H 163 H Calcium Ferritin Total Bilirubin Alkaline Phosphatase Lactate Dehydrogenase Total Creatine Kinase CK-MB (CK-2) Rel Index Troponin T C-Reactive Protein Total Protein Albumin Prealbumin LDL Cholesterol Direct Arterial Blood Glucose Arterial Blood Ionized Calcium Urine WBC (Auto) 03/04/20 03/04/20 03/05/20 18:15 21:30 06:02 WBC RBC Hgb Hct MCV MCH RDW Plt Count Lymph % (Auto) Lymph # (Auto) [place] # (Auto) Seg Neutrophils % Seg Neuts % (Manual) Lymphocytes % (Manual) Monocytes % (Manual) Basophils % (Manual) Seg Neutrophils # Seg Neutrophils # Man Lymphocytes # (Manual) Monocytes # (Manual) Eosinophils # (Manual) Basophils # (Manual) PT INR D-Dimer ABG pH 7.297 L POC ABG pCO2 POC ABG pO2 ABG pO2 ABG HCO3 41.0 H ABG O2 Saturation ABG Base Excess 11.0 H ABG Hemoglobin 13.1 L ABG Oxyhemoglobin ABG Potassium ABG Glucose Oxyhemoglobin 94.5 L Carboxyhemoglobin Sodium Potassium Chloride Carbon Dioxide BUN Creatinine Glucose POC Glucose 192 H 127 H Calcium Ferritin Total Bilirubin Alkaline Phosphatase Lactate Dehydrogenase Total Creatine Kinase CK-MB (CK-2) Rel Index Troponin T C-Reactive Protein Total Protein Albumin Prealbumin LDL Cholesterol Direct Arterial Blood Glucose Arterial Blood Ionized Calcium Urine WBC (Auto) 03/05/20 03/05/20 03/06/20 12:09 16:42 00:24 WBC RBC Hgb Hct MCV MCH RDW Plt Count Lymph % (Auto) Lymph # (Auto) [place] # (Auto) Seg Neutrophils % Seg Neuts % (Manual) Lymphocytes % (Manual) Monocytes % (Manual) Basophils % (Manual) Seg Neutrophils # Seg Neutrophils # Man Lymphocytes # (Manual) Monocytes # (Manual) Eosinophils # (Manual) Basophils # (Manual) PT INR D-Dimer ABG pH POC ABG pCO2 POC ABG pO2 ABG pO2 ABG HCO3 ABG O2 Saturation ABG Base Excess ABG Hemoglobin ABG Oxyhemoglobin ABG Potassium ABG Glucose Oxyhemoglobin Carboxyhemoglobin Sodium Potassium Chloride Carbon Dioxide BUN Creatinine Glucose POC Glucose 147 H 114 H 134 H Calcium Ferritin Total Bilirubin Alkaline Phosphatase Lactate Dehydrogenase Total Creatine Kinase CK-MB (CK-2) Rel Index Troponin T C-Reactive Protein Total Protein Albumin Prealbumin LDL Cholesterol Direct Arterial Blood Glucose Arterial Blood Ionized Calcium Urine WBC (Auto) 03/06/20 03/06/20 03/06/20 04:34 05:53 06:08 WBC 25.4 H RBC Hgb 10.5 L Hct 32.7 L MCV MCH 27 L RDW 15.3 H Plt Count 634 H Lymph % (Auto) Lymph # (Auto) [place] # (Auto) Seg Neutrophils % Seg Neuts % (Manual) 88.0 H Lymphocytes % (Manual) 2.0 L Monocytes % (Manual) 8.0 H Basophils % (Manual) Seg Neutrophils # Seg Neutrophils # Man 22.4 H Lymphocytes # (Manual) 0.5 L Monocytes # (Manual) 2.0 H Eosinophils # (Manual) Basophils # (Manual) PT INR D-Dimer ABG pH POC ABG pCO2 POC ABG pO2 ABG pO2 ABG HCO3 37.9 H ABG O2 Saturation ABG Base Excess 11.4 H ABG Hemoglobin 10.6 L ABG Oxyhemoglobin ABG Potassium ABG Glucose Oxyhemoglobin 94.7 L Carboxyhemoglobin Sodium Potassium Chloride Carbon Dioxide BUN Creatinine Glucose POC Glucose 135 H Calcium Ferritin Total Bilirubin Alkaline Phosphatase Lactate Dehydrogenase Total Creatine Kinase CK-MB (CK-2) Rel Index Troponin T C-Reactive Protein Total Protein Albumin Prealbumin LDL Cholesterol Direct Arterial Blood Glucose Arterial Blood Ionized Calcium Urine WBC (Auto) 03/06/20 03/06/20 03/06/20 06:08 12:19 19:10 WBC RBC Hgb Hct MCV MCH RDW Plt Count Lymph % (Auto) Lymph # (Auto) [place] # (Auto) Seg Neutrophils % Seg Neuts % (Manual) Lymphocytes % (Manual) Monocytes % (Manual) Basophils % (Manual) Seg Neutrophils # Seg Neutrophils # Man Lymphocytes # (Manual) Monocytes # (Manual) Eosinophils # (Manual) Basophils # (Manual) PT INR D-Dimer ABG pH POC ABG pCO2 POC ABG pO2 ABG pO2 ABG HCO3 ABG O2 Saturation ABG Base Excess ABG Hemoglobin ABG Oxyhemoglobin ABG Potassium ABG Glucose Oxyhemoglobin Carboxyhemoglobin Sodium 150 H D Potassium Chloride Carbon Dioxide 39 H D BUN 23 H Creatinine < 0.2 L Glucose 144 H POC Glucose 169 H 152 H Calcium Ferritin Total Bilirubin Alkaline Phosphatase Lactate Dehydrogenase Total Creatine Kinase CK-MB (CK-2) Rel Index Troponin T C-Reactive Protein Total Protein Albumin 3.3 L Prealbumin LDL Cholesterol Direct Arterial Blood Glucose Arterial Blood Ionized Calcium Urine WBC (Auto) 03/06/20 03/07/20 03/07/20 23:58 04:25 04:25 WBC 22.1 H RBC Hgb 10.9 L Hct 32.9 L MCV MCH RDW 15.5 H Plt Count 739 H Lymph % (Auto) 7.8 L Lymph # (Auto) [place] # (Auto) 1.3 H Seg Neutrophils % 85.5 H Seg Neuts % (Manual) Lymphocytes % (Manual) Monocytes % (Manual) Basophils % (Manual) Seg Neutrophils # 18.9 H Seg Neutrophils # Man Lymphocytes # (Manual) Monocytes # (Manual) Eosinophils # (Manual) Basophils # (Manual) PT INR D-Dimer ABG pH POC ABG pCO2 POC ABG pO2 ABG pO2 ABG HCO3 ABG O2 Saturation ABG Base Excess ABG Hemoglobin ABG Oxyhemoglobin ABG Potassium ABG Glucose Oxyhemoglobin Carboxyhemoglobin Sodium 146 H Potassium Chloride Carbon Dioxide 37 H BUN Creatinine < 0.2 L Glucose 118 H POC Glucose 111 H Calcium Ferritin Total Bilirubin Alkaline Phosphatase Lactate Dehydrogenase Total Creatine Kinase CK-MB (CK-2) Rel Index Troponin T C-Reactive Protein Total Protein Albumin 3.7 L Prealbumin LDL Cholesterol Direct Arterial Blood Glucose Arterial Blood Ionized Calcium Urine WBC (Auto) 03/07/20 03/07/20 03/07/20 05:20 17:45 23:32 WBC RBC Hgb Hct MCV MCH RDW Plt Count Lymph % (Auto) Lymph # (Auto) [place] # (Auto) Seg Neutrophils % Seg Neuts % (Manual) Lymphocytes % (Manual) Monocytes % (Manual) Basophils % (Manual) Seg Neutrophils # Seg Neutrophils # Man Lymphocytes # (Manual) Monocytes # (Manual) Eosinophils # (Manual) Basophils # (Manual) PT INR D-Dimer ABG pH POC ABG pCO2 POC ABG pO2 ABG pO2 ABG HCO3 ABG O2 Saturation ABG Base Excess ABG Hemoglobin ABG Oxyhemoglobin ABG Potassium ABG Glucose Oxyhemoglobin Carboxyhemoglobin Sodium Potassium Chloride Carbon Dioxide BUN Creatinine Glucose POC Glucose 113 H 124 H 210 H Calcium Ferritin Total Bilirubin Alkaline Phosphatase Lactate Dehydrogenase Total Creatine Kinase CK-MB (CK-2) Rel Index Troponin T C-Reactive Protein Total Protein Albumin Prealbumin LDL Cholesterol Direct Arterial Blood Glucose Arterial Blood Ionized Calcium Urine WBC (Auto) 03/08/20 03/08/20 03/08/20 05:35 06:43 06:43 WBC 28.9 H RBC 3.53 L Hgb 9.7 L Hct 30.3 L MCV MCH RDW 15.6 H Plt Count 578 H Lymph % (Auto) Lymph # (Auto) [place] # (Auto) Seg Neutrophils % Seg Neuts % (Manual) 93.0 H Lymphocytes % (Manual) 4.0 L Monocytes % (Manual) Basophils % (Manual) Seg Neutrophils # Seg Neutrophils # Man 26.9 H Lymphocytes # (Manual) Monocytes # (Manual) Eosinophils # (Manual) Basophils # (Manual) PT INR D-Dimer ABG pH POC ABG pCO2 POC ABG pO2 ABG pO2 ABG HCO3 ABG O2 Saturation ABG Base Excess ABG Hemoglobin ABG Oxyhemoglobin ABG Potassium ABG Glucose Oxyhemoglobin Carboxyhemoglobin Sodium 146 H Potassium Chloride Carbon Dioxide 35 H BUN 34 H Creatinine 0.3 L D Glucose 125 H POC Glucose 147 H Calcium Ferritin Total Bilirubin Alkaline Phosphatase Lactate Dehydrogenase Total Creatine Kinase CK-MB (CK-2) Rel Index Troponin T C-Reactive Protein Total Protein 5.9 L Albumin 3.2 L Prealbumin LDL Cholesterol Direct Arterial Blood Glucose Arterial Blood Ionized Calcium Urine WBC (Auto) 03/08/20 03/08/20 03/08/20 08:57 11:14 12:34 WBC RBC Hgb Hct MCV MCH RDW Plt Count Lymph % (Auto) Lymph # (Auto) [place] # (Auto) Seg Neutrophils % Seg Neuts % (Manual) Lymphocytes % (Manual) Monocytes % (Manual) Basophils % (Manual) Seg Neutrophils # Seg Neutrophils # Man Lymphocytes # (Manual) Monocytes # (Manual) Eosinophils # (Manual) Basophils # (Manual) PT INR D-Dimer ABG pH POC ABG pCO2 63.1 H POC ABG pO2 ABG pO2 ABG HCO3 ABG O2 Saturation ABG Base Excess ABG Hemoglobin 10.9 L ABG Oxyhemoglobin ABG Potassium ABG Glucose 176 H Oxyhemoglobin Carboxyhemoglobin Sodium Potassium Chloride Carbon Dioxide BUN Creatinine Glucose POC Glucose 171 H Calcium Ferritin Total Bilirubin Alkaline Phosphatase Lactate Dehydrogenase Total Creatine Kinase CK-MB (CK-2) Rel Index Troponin T C-Reactive Protein Total Protein Albumin Prealbumin LDL Cholesterol Direct Arterial Blood Glucose 176 H Arterial Blood Ionized Calcium 4.5 L Urine WBC (Auto) 10.0 H 03/08/20 03/08/20 03/09/20 18:02 23:43 05:49 WBC RBC Hgb Hct MCV MCH RDW Plt Count Lymph % (Auto) Lymph # (Auto) [place] # (Auto) Seg Neutrophils % Seg Neuts % (Manual) Lymphocytes % (Manual) Monocytes % (Manual) Basophils % (Manual) Seg Neutrophils # Seg Neutrophils # Man Lymphocytes # (Manual) Monocytes # (Manual) Eosinophils # (Manual) Basophils # (Manual) PT INR D-Dimer ABG pH POC ABG pCO2 POC ABG pO2 ABG pO2 ABG HCO3 ABG O2 Saturation ABG Base Excess ABG Hemoglobin ABG Oxyhemoglobin ABG Potassium ABG Glucose Oxyhemoglobin Carboxyhemoglobin Sodium Potassium Chloride Carbon Dioxide BUN Creatinine Glucose POC Glucose 157 H 134 H 163 H Calcium Ferritin Total Bilirubin Alkaline Phosphatase Lactate Dehydrogenase Total Creatine Kinase CK-MB (CK-2) Rel Index Troponin T C-Reactive Protein Total Protein Albumin Prealbumin LDL Cholesterol Direct Arterial Blood Glucose Arterial Blood Ionized Calcium Urine WBC (Auto) 03/09/20 03/09/20 03/09/20 08:35 08:35 12:11 WBC 23.4 H RBC 3.36 L Hgb 9.3 L Hct 28.8 L MCV MCH RDW 15.9 H Plt Count 521 H Lymph % (Auto) Lymph # (Auto) [place] # (Auto) Seg Neutrophils % Seg Neuts % (Manual) 87.0 H Lymphocytes % (Manual) 4.0 L Monocytes % (Manual) 9.0 H Basophils % (Manual) Seg Neutrophils # Seg Neutrophils # Man 20.4 H Lymphocytes # (Manual) 0.9 L Monocytes # (Manual) 2.1 H Eosinophils # (Manual) Basophils # (Manual) PT INR D-Dimer ABG pH POC ABG pCO2 POC ABG pO2 ABG pO2 ABG HCO3 ABG O2 Saturation ABG Base Excess ABG Hemoglobin ABG Oxyhemoglobin ABG Potassium ABG Glucose Oxyhemoglobin Carboxyhemoglobin Sodium 147 H Potassium Chloride Carbon Dioxide 37 H BUN 63 H Creatinine Glucose 154 H POC Glucose 128 H Calcium Ferritin Total Bilirubin Alkaline Phosphatase Lactate Dehydrogenase Total Creatine Kinase CK-MB (CK-2) Rel Index Troponin T C-Reactive Protein Total Protein Albumin Prealbumin LDL Cholesterol Direct Arterial Blood Glucose Arterial Blood Ionized Calcium Urine WBC (Auto) 03/09/20 03/10/20 03/10/20 17:51 00:25 05:41 WBC RBC Hgb Hct MCV MCH RDW Plt Count Lymph % (Auto) Lymph # (Auto) [place] # (Auto) Seg Neutrophils % Seg Neuts % (Manual) Lymphocytes % (Manual) Monocytes % (Manual) Basophils % (Manual) Seg Neutrophils # Seg Neutrophils # Man Lymphocytes # (Manual) Monocytes # (Manual) Eosinophils # (Manual) Basophils # (Manual) PT INR D-Dimer ABG pH POC ABG pCO2 POC ABG pO2 ABG pO2 ABG HCO3 ABG O2 Saturation ABG Base Excess ABG Hemoglobin ABG Oxyhemoglobin ABG Potassium ABG Glucose Oxyhemoglobin Carboxyhemoglobin Sodium Potassium Chloride Carbon Dioxide BUN Creatinine Glucose POC Glucose 127 H 128 H 153 H Calcium Ferritin Total Bilirubin Alkaline Phosphatase Lactate Dehydrogenase Total Creatine Kinase CK-MB (CK-2) Rel Index Troponin T C-Reactive Protein Total Protein Albumin Prealbumin LDL Cholesterol Direct Arterial Blood Glucose Arterial Blood Ionized Calcium Urine WBC (Auto) 03/10/20 03/10/20 03/10/20 06:14 06:14 12:02 WBC 18.3 H RBC 3.45 L Hgb 9.5 L Hct 29.5 L MCV MCH RDW 16.1 H Plt Count 494 H Lymph % (Auto) Lymph # (Auto) [place] # (Auto) Seg Neutrophils % Seg Neuts % (Manual) 95.0 H Lymphocytes % (Manual) 1.0 L Monocytes % (Manual) Basophils % (Manual) Seg Neutrophils # Seg Neutrophils # Man 17.4 H Lymphocytes # (Manual) 0.2 L Monocytes # (Manual) Eosinophils # (Manual) Basophils # (Manual) PT INR D-Dimer ABG pH POC ABG pCO2 POC ABG pO2 ABG pO2 ABG HCO3 ABG O2 Saturation ABG Base Excess ABG Hemoglobin ABG Oxyhemoglobin ABG Potassium ABG Glucose Oxyhemoglobin Carboxyhemoglobin Sodium 149 H Potassium Chloride Carbon Dioxide 35 H BUN 34 H Creatinine 0.2 L D Glucose 177 H POC Glucose 151 H Calcium Ferritin Total Bilirubin Alkaline Phosphatase Lactate Dehydrogenase Total Creatine Kinase CK-MB (CK-2) Rel Index Troponin T C-Reactive Protein Total Protein Albumin Prealbumin LDL Cholesterol Direct Arterial Blood Glucose Arterial Blood Ionized Calcium Urine WBC (Auto) 03/10/20 03/10/20 03/11/20 17:41 23:53 05:02 WBC RBC Hgb Hct MCV MCH RDW Plt Count Lymph % (Auto) Lymph # (Auto) [place] # (Auto) Seg Neutrophils % Seg Neuts % (Manual) Lymphocytes % (Manual) Monocytes % (Manual) Basophils % (Manual) Seg Neutrophils # Seg Neutrophils # Man Lymphocytes # (Manual) Monocytes # (Manual) Eosinophils # (Manual) Basophils # (Manual) PT INR D-Dimer ABG pH POC ABG pCO2 POC ABG pO2 ABG pO2 ABG HCO3 ABG O2 Saturation ABG Base Excess ABG Hemoglobin ABG Oxyhemoglobin ABG Potassium ABG Glucose Oxyhemoglobin Carboxyhemoglobin Sodium Potassium Chloride Carbon Dioxide BUN Creatinine Glucose POC Glucose 168 H 142 H 146 H Calcium Ferritin Total Bilirubin Alkaline Phosphatase Lactate Dehydrogenase Total Creatine Kinase CK-MB (CK-2) Rel Index Troponin T C-Reactive Protein Total Protein Albumin Prealbumin LDL Cholesterol Direct Arterial Blood Glucose Arterial Blood Ionized Calcium Urine WBC (Auto) 03/11/20 03/11/20 03/11/20 11:30 14:01 14:01 WBC 19.7 H RBC 3.04 L Hgb 8.7 L Hct 25.8 L MCV MCH RDW 15.6 H Plt Count Lymph % (Auto) Lymph # (Auto) [place] # (Auto) Seg Neutrophils % Seg Neuts % (Manual) Lymphocytes % (Manual) Monocytes % (Manual) Basophils % (Manual) Seg Neutrophils # Seg Neutrophils # Man Lymphocytes # (Manual) Monocytes # (Manual) Eosinophils # (Manual) Basophils # (Manual) PT INR D-Dimer ABG pH POC ABG pCO2 POC ABG pO2 ABG pO2 ABG HCO3 ABG O2 Saturation ABG Base Excess ABG Hemoglobin ABG Oxyhemoglobin ABG Potassium ABG Glucose Oxyhemoglobin Carboxyhemoglobin Sodium 151 H Potassium Chloride Carbon Dioxide 37 H BUN Creatinine < 0.2 L Glucose 171 H POC Glucose 248 H Calcium Ferritin Total Bilirubin Alkaline Phosphatase Lactate Dehydrogenase Total Creatine Kinase CK-MB (CK-2) Rel Index Troponin T C-Reactive Protein Total Protein Albumin Prealbumin LDL Cholesterol Direct Arterial Blood Glucose Arterial Blood Ionized Calcium Urine WBC (Auto) 03/11/20 03/11/20 03/12/20 17:09 23:52 04:39 WBC 19.9 H RBC 3.16 L Hgb 8.9 L Hct 27.5 L MCV MCH RDW 15.7 H Plt Count Lymph % (Auto) 6.8 L Lymph # (Auto) [place] # (Auto) 1.2 H Seg Neutrophils % 86.0 H Seg Neuts % (Manual) Lymphocytes % (Manual) Monocytes % (Manual) Basophils % (Manual) Seg Neutrophils # 17.1 H Seg Neutrophils # Man Lymphocytes # (Manual) Monocytes # (Manual) Eosinophils # (Manual) Basophils # (Manual) PT INR D-Dimer ABG pH POC ABG pCO2 POC ABG pO2 ABG pO2 ABG HCO3 ABG O2 Saturation ABG Base Excess ABG Hemoglobin ABG Oxyhemoglobin ABG Potassium ABG Glucose Oxyhemoglobin Carboxyhemoglobin Sodium Potassium Chloride Carbon Dioxide BUN Creatinine Glucose POC Glucose 124 H 131 H Calcium Ferritin Total Bilirubin Alkaline Phosphatase Lactate Dehydrogenase Total Creatine Kinase CK-MB (CK-2) Rel Index Troponin T C-Reactive Protein Total Protein Albumin Prealbumin LDL Cholesterol Direct Arterial Blood Glucose Arterial Blood Ionized Calcium Urine WBC (Auto) 03/12/20 03/12/20 03/12/20 04:39 05:28 11:34 WBC RBC Hgb Hct MCV MCH RDW Plt Count Lymph % (Auto) Lymph # (Auto) [place] # (Auto) Seg Neutrophils % Seg Neuts % (Manual) Lymphocytes % (Manual) Monocytes % (Manual) Basophils % (Manual) Seg Neutrophils # Seg Neutrophils # Man Lymphocytes # (Manual) Monocytes # (Manual) Eosinophils # (Manual) Basophils # (Manual) PT INR D-Dimer ABG pH POC ABG pCO2 POC ABG pO2 ABG pO2 ABG HCO3 ABG O2 Saturation ABG Base Excess ABG Hemoglobin ABG Oxyhemoglobin ABG Potassium ABG Glucose Oxyhemoglobin Carboxyhemoglobin Sodium 147 H Potassium Chloride Carbon Dioxide 40 H BUN Creatinine < 0.2 L Glucose 175 H POC Glucose 167 H 144 H Calcium Ferritin Total Bilirubin Alkaline Phosphatase Lactate Dehydrogenase Total Creatine Kinase CK-MB (CK-2) Rel Index Troponin T C-Reactive Protein Total Protein Albumin Prealbumin LDL Cholesterol Direct Arterial Blood Glucose Arterial Blood Ionized Calcium Urine WBC (Auto) 03/12/20 03/12/20 03/13/20 17:32 23:57 05:57 WBC RBC Hgb Hct MCV MCH RDW Plt Count Lymph % (Auto) Lymph # (Auto) [place] # (Auto) Seg Neutrophils % Seg Neuts % (Manual) Lymphocytes % (Manual) Monocytes % (Manual) Basophils % (Manual) Seg Neutrophils # Seg Neutrophils # Man Lymphocytes # (Manual) Monocytes # (Manual) Eosinophils # (Manual) Basophils # (Manual) PT INR D-Dimer ABG pH POC ABG pCO2 POC ABG pO2 ABG pO2 ABG HCO3 ABG O2 Saturation ABG Base Excess ABG Hemoglobin ABG Oxyhemoglobin ABG Potassium ABG Glucose Oxyhemoglobin Carboxyhemoglobin Sodium Potassium Chloride Carbon Dioxide BUN Creatinine Glucose POC Glucose 141 H 137 H 161 H Calcium Ferritin Total Bilirubin Alkaline Phosphatase Lactate Dehydrogenase Total Creatine Kinase CK-MB (CK-2) Rel Index Troponin T C-Reactive Protein Total Protein Albumin Prealbumin LDL Cholesterol Direct Arterial Blood Glucose Arterial Blood Ionized Calcium Urine WBC (Auto) 03/13/20 03/13/20 03/13/20 12:28 14:14 18:39 WBC RBC Hgb Hct MCV MCH RDW Plt Count Lymph % (Auto) Lymph # (Auto) [place] # (Auto) Seg Neutrophils % Seg Neuts % (Manual) Lymphocytes % (Manual) Monocytes % (Manual) Basophils % (Manual) Seg Neutrophils # Seg Neutrophils # Man Lymphocytes # (Manual) Monocytes # (Manual) Eosinophils # (Manual) Basophils # (Manual) PT INR D-Dimer ABG pH POC ABG pCO2 POC ABG pO2 ABG pO2 ABG HCO3 ABG O2 Saturation ABG Base Excess ABG Hemoglobin ABG Oxyhemoglobin ABG Potassium ABG Glucose Oxyhemoglobin Carboxyhemoglobin Sodium Potassium Chloride Carbon Dioxide 39 H BUN Creatinine < 0.2 L Glucose 129 H POC Glucose 130 H 125 H Calcium Ferritin Total Bilirubin Alkaline Phosphatase Lactate Dehydrogenase Total Creatine Kinase CK-MB (CK-2) Rel Index Troponin T C-Reactive Protein Total Protein Albumin Prealbumin LDL Cholesterol Direct Arterial Blood Glucose Arterial Blood Ionized Calcium Urine WBC (Auto) 03/13/20 03/14/20 03/14/20 23:33 05:24 08:07 WBC 16.8 H RBC 2.81 L Hgb 7.9 L Hct 23.9 L MCV MCH RDW 15.9 H Plt Count Lymph % (Auto) Lymph # (Auto) [place] # (Auto) Seg Neutrophils % Seg Neuts % (Manual) 84.0 H Lymphocytes % (Manual) 10.0 L Monocytes % (Manual) Basophils % (Manual) Seg Neutrophils # Seg Neutrophils # Man 14.1 H Lymphocytes # (Manual) Monocytes # (Manual) Eosinophils # (Manual) Basophils # (Manual) PT INR D-Dimer ABG pH POC ABG pCO2 POC ABG pO2 ABG pO2 ABG HCO3 ABG O2 Saturation ABG Base Excess ABG Hemoglobin ABG Oxyhemoglobin ABG Potassium ABG Glucose Oxyhemoglobin Carboxyhemoglobin Sodium Potassium Chloride Carbon Dioxide BUN Creatinine Glucose POC Glucose 146 H 125 H Calcium Ferritin Total Bilirubin Alkaline Phosphatase Lactate Dehydrogenase Total Creatine Kinase CK-MB (CK-2) Rel Index Troponin T C-Reactive Protein Total Protein Albumin Prealbumin LDL Cholesterol Direct Arterial Blood Glucose Arterial Blood Ionized Calcium Urine WBC (Auto) 03/14/20 03/14/20 03/14/20 08:07 12:21 18:26 WBC RBC Hgb Hct MCV MCH RDW Plt Count Lymph % (Auto) Lymph # (Auto) [place] # (Auto) Seg Neutrophils % Seg Neuts % (Manual) Lymphocytes % (Manual) Monocytes % (Manual) Basophils % (Manual) Seg Neutrophils # Seg Neutrophils # Man Lymphocytes # (Manual) Monocytes # (Manual) Eosinophils # (Manual) Basophils # (Manual) PT INR D-Dimer ABG pH POC ABG pCO2 POC ABG pO2 ABG pO2 ABG HCO3 ABG O2 Saturation ABG Base Excess ABG Hemoglobin ABG Oxyhemoglobin ABG Potassium ABG Glucose Oxyhemoglobin Carboxyhemoglobin Sodium Potassium Chloride 97.0 L Carbon Dioxide 37 H BUN Creatinine < 0.2 L Glucose 129 H POC Glucose 109 H 142 H Calcium 8.3 L Ferritin Total Bilirubin Alkaline Phosphatase Lactate Dehydrogenase Total Creatine Kinase CK-MB (CK-2) Rel Index Troponin T C-Reactive Protein Total Protein Albumin Prealbumin LDL Cholesterol Direct Arterial Blood Glucose Arterial Blood Ionized Calcium Urine WBC (Auto) 03/14/20 03/15/20 03/15/20 23:57 05:46 08:06 WBC 19.7 H RBC 3.29 L Hgb 9.1 L Hct 28.0 L MCV MCH RDW 15.9 H Plt Count Lymph % (Auto) Lymph # (Auto) [place] # (Auto) Seg Neutrophils % Seg Neuts % (Manual) Lymphocytes % (Manual) Monocytes % (Manual) Basophils % (Manual) Seg Neutrophils # Seg Neutrophils # Man Lymphocytes # (Manual) Monocytes # (Manual) Eosinophils # (Manual) Basophils # (Manual) PT INR D-Dimer ABG pH POC ABG pCO2 POC ABG pO2 ABG pO2 ABG HCO3 ABG O2 Saturation ABG Base Excess ABG Hemoglobin ABG Oxyhemoglobin ABG Potassium ABG Glucose Oxyhemoglobin Carboxyhemoglobin Sodium Potassium Chloride Carbon Dioxide BUN Creatinine Glucose POC Glucose 157 H 118 H Calcium Ferritin Total Bilirubin Alkaline Phosphatase Lactate Dehydrogenase Total Creatine Kinase CK-MB (CK-2) Rel Index Troponin T C-Reactive Protein Total Protein Albumin Prealbumin LDL Cholesterol Direct Arterial Blood Glucose Arterial Blood Ionized Calcium Urine WBC (Auto) 03/15/20 03/15/20 03/15/20 08:06 12:44 18:09 WBC RBC Hgb Hct MCV MCH RDW Plt Count Lymph % (Auto) Lymph # (Auto) [place] # (Auto) Seg Neutrophils % Seg Neuts % (Manual) Lymphocytes % (Manual) Monocytes % (Manual) Basophils % (Manual) Seg Neutrophils # Seg Neutrophils # Man Lymphocytes # (Manual) Monocytes # (Manual) Eosinophils # (Manual) Basophils # (Manual) PT INR D-Dimer ABG pH POC ABG pCO2 POC ABG pO2 ABG pO2 ABG HCO3 ABG O2 Saturation ABG Base Excess ABG Hemoglobin ABG Oxyhemoglobin ABG Potassium ABG Glucose Oxyhemoglobin Carboxyhemoglobin Sodium 136 L Potassium Chloride 93.6 L Carbon Dioxide 37 H BUN Creatinine < 0.2 L Glucose 132 H POC Glucose 151 H 164 H Calcium Ferritin Total Bilirubin Alkaline Phosphatase Lactate Dehydrogenase Total Creatine Kinase CK-MB (CK-2) Rel Index Troponin T C-Reactive Protein Total Protein Albumin Prealbumin LDL Cholesterol Direct Arterial Blood Glucose Arterial Blood Ionized Calcium Urine WBC (Auto) 03/15/20 03/16/20 03/16/20 23:26 05:39 11:58 WBC RBC Hgb Hct MCV MCH RDW Plt Count Lymph % (Auto) Lymph # (Auto) [place] # (Auto) Seg Neutrophils % Seg Neuts % (Manual) Lymphocytes % (Manual) Monocytes % (Manual) Basophils % (Manual) Seg Neutrophils # Seg Neutrophils # Man Lymphocytes # (Manual) Monocytes # (Manual) Eosinophils # (Manual) Basophils # (Manual) PT INR D-Dimer ABG pH POC ABG pCO2 POC ABG pO2 ABG pO2 ABG HCO3 ABG O2 Saturation ABG Base Excess ABG Hemoglobin ABG Oxyhemoglobin ABG Potassium ABG Glucose Oxyhemoglobin Carboxyhemoglobin Sodium Potassium Chloride Carbon Dioxide BUN Creatinine Glucose POC Glucose 136 H 116 H 109 H Calcium Ferritin Total Bilirubin Alkaline Phosphatase Lactate Dehydrogenase Total Creatine Kinase CK-MB (CK-2) Rel Index Troponin T C-Reactive Protein Total Protein Albumin Prealbumin LDL Cholesterol Direct Arterial Blood Glucose Arterial Blood Ionized Calcium Urine WBC (Auto) 03/16/20 03/17/20 03/17/20 23:56 04:40 04:40 WBC 18.0 H RBC 3.33 L Hgb 9.5 L Hct 28.8 L MCV MCH RDW 16.4 H Plt Count 499 H Lymph % (Auto) Lymph # (Auto) [place] # (Auto) Seg Neutrophils % Seg Neuts % (Manual) 82.0 H Lymphocytes % (Manual) 8.0 L Monocytes % (Manual) Basophils % (Manual) Seg Neutrophils # Seg Neutrophils # Man 14.8 H Lymphocytes # (Manual) Monocytes # (Manual) 1.3 H Eosinophils # (Manual) Basophils # (Manual) 0.2 H PT INR D-Dimer ABG pH POC ABG pCO2 POC ABG pO2 ABG pO2 ABG HCO3 ABG O2 Saturation ABG Base Excess ABG Hemoglobin ABG Oxyhemoglobin ABG Potassium ABG Glucose Oxyhemoglobin Carboxyhemoglobin Sodium Potassium Chloride 97.7 L Carbon Dioxide 32 H BUN Creatinine < 0.2 L Glucose 114 H POC Glucose 131 H Calcium Ferritin Total Bilirubin Alkaline Phosphatase Lactate Dehydrogenase Total Creatine Kinase CK-MB (CK-2) Rel Index Troponin T C-Reactive Protein Total Protein Albumin Prealbumin LDL Cholesterol Direct Arterial Blood Glucose Arterial Blood Ionized Calcium Urine WBC (Auto) 03/18/20 03/18/20 03/18/20 00:21 05:21 11:55 WBC RBC Hgb Hct MCV MCH RDW Plt Count Lymph % (Auto) Lymph # (Auto) [place] # (Auto) Seg Neutrophils % Seg Neuts % (Manual) Lymphocytes % (Manual) Monocytes % (Manual) Basophils % (Manual) Seg Neutrophils # Seg Neutrophils # Man Lymphocytes # (Manual) Monocytes # (Manual) Eosinophils # (Manual) Basophils # (Manual) PT INR D-Dimer ABG pH POC ABG pCO2 POC ABG pO2 ABG pO2 ABG HCO3 ABG O2 Saturation ABG Base Excess ABG Hemoglobin ABG Oxyhemoglobin ABG Potassium ABG Glucose Oxyhemoglobin Carboxyhemoglobin Sodium Potassium Chloride Carbon Dioxide BUN Creatinine Glucose POC Glucose 124 H 138 H 119 H Calcium Ferritin Total Bilirubin Alkaline Phosphatase Lactate Dehydrogenase Total Creatine Kinase CK-MB (CK-2) Rel Index Troponin T C-Reactive Protein Total Protein Albumin Prealbumin LDL Cholesterol Direct Arterial Blood Glucose Arterial Blood Ionized Calcium Urine WBC (Auto) 03/18/20 03/18/20 03/19/20 17:03 23:58 05:24 WBC RBC Hgb Hct MCV MCH RDW Plt Count Lymph % (Auto) Lymph # (Auto) [place] # (Auto) Seg Neutrophils % Seg Neuts % (Manual) Lymphocytes % (Manual) Monocytes % (Manual) Basophils % (Manual) Seg Neutrophils # Seg Neutrophils # Man Lymphocytes # (Manual) Monocytes # (Manual) Eosinophils # (Manual) Basophils # (Manual) PT INR D-Dimer ABG pH POC ABG pCO2 POC ABG pO2 ABG pO2 ABG HCO3 ABG O2 Saturation ABG Base Excess ABG Hemoglobin ABG Oxyhemoglobin ABG Potassium ABG Glucose Oxyhemoglobin Carboxyhemoglobin Sodium Potassium Chloride Carbon Dioxide BUN Creatinine Glucose POC Glucose 128 H 128 H 115 H Calcium Ferritin Total Bilirubin Alkaline Phosphatase Lactate Dehydrogenase Total Creatine Kinase CK-MB (CK-2) Rel Index Troponin T C-Reactive Protein Total Protein Albumin Prealbumin LDL Cholesterol Direct Arterial Blood Glucose Arterial Blood Ionized Calcium Urine WBC (Auto) 03/19/20 03/19/20 03/19/20 08:05 08:05 11:56 WBC 16.8 H RBC 3.36 L Hgb 9.4 L Hct 28.8 L MCV MCH RDW 17.4 H Plt Count 567 H Lymph % (Auto) 7.8 L Lymph # (Auto) [place] # (Auto) 1.2 H Seg Neutrophils % 83.5 H Seg Neuts % (Manual) Lymphocytes % (Manual) Monocytes % (Manual) Basophils % (Manual) Seg Neutrophils # 14.1 H Seg Neutrophils # Man Lymphocytes # (Manual) Monocytes # (Manual) Eosinophils # (Manual) Basophils # (Manual) PT INR D-Dimer ABG pH POC ABG pCO2 POC ABG pO2 ABG pO2 ABG HCO3 ABG O2 Saturation ABG Base Excess ABG Hemoglobin ABG Oxyhemoglobin ABG Potassium ABG Glucose Oxyhemoglobin Carboxyhemoglobin Sodium Potassium Chloride Carbon Dioxide 36 H BUN Creatinine < 0.2 L Glucose 135 H POC Glucose 128 H Calcium Ferritin Total Bilirubin Alkaline Phosphatase Lactate Dehydrogenase Total Creatine Kinase CK-MB (CK-2) Rel Index Troponin T C-Reactive Protein Total Protein Albumin Prealbumin LDL Cholesterol Direct Arterial Blood Glucose Arterial Blood Ionized Calcium Urine WBC (Auto) 03/19/20 03/20/20 03/20/20 23:59 05:12 16:52 WBC RBC Hgb Hct MCV MCH RDW Plt Count Lymph % (Auto) Lymph # (Auto) [place] # (Auto) Seg Neutrophils % Seg Neuts % (Manual) Lymphocytes % (Manual) Monocytes % (Manual) Basophils % (Manual) Seg Neutrophils # Seg Neutrophils # Man Lymphocytes # (Manual) Monocytes # (Manual) Eosinophils # (Manual) Basophils # (Manual) PT INR D-Dimer ABG pH POC ABG pCO2 POC ABG pO2 ABG pO2 ABG HCO3 ABG O2 Saturation ABG Base Excess ABG Hemoglobin ABG Oxyhemoglobin ABG Potassium ABG Glucose Oxyhemoglobin Carboxyhemoglobin Sodium Potassium Chloride Carbon Dioxide BUN Creatinine Glucose POC Glucose 120 H 131 H 124 H Calcium Ferritin Total Bilirubin Alkaline Phosphatase Lactate Dehydrogenase Total Creatine Kinase CK-MB (CK-2) Rel Index Troponin T C-Reactive Protein Total Protein Albumin Prealbumin LDL Cholesterol Direct Arterial Blood Glucose Arterial Blood Ionized Calcium Urine WBC (Auto) 03/20/20 03/21/20 03/21/20 23:35 04:50 07:35 WBC 15.2 H RBC 3.39 L Hgb 9.4 L Hct 29.4 L MCV MCH RDW 17.6 H Plt Count 518 H Lymph % (Auto) Lymph # (Auto) [place] # (Auto) Seg Neutrophils % Seg Neuts % (Manual) 83.0 H Lymphocytes % (Manual) 10.0 L Monocytes % (Manual) Basophils % (Manual) 2.0 H Seg Neutrophils # Seg Neutrophils # Man 12.6 H Lymphocytes # (Manual) Monocytes # (Manual) Eosinophils # (Manual) Basophils # (Manual) 0.3 H PT INR D-Dimer ABG pH POC ABG pCO2 POC ABG pO2 ABG pO2 ABG HCO3 ABG O2 Saturation ABG Base Excess ABG Hemoglobin ABG Oxyhemoglobin ABG Potassium ABG Glucose Oxyhemoglobin Carboxyhemoglobin Sodium Potassium Chloride Carbon Dioxide BUN Creatinine Glucose POC Glucose 125 H 127 H Calcium Ferritin Total Bilirubin Alkaline Phosphatase Lactate Dehydrogenase Total Creatine Kinase CK-MB (CK-2) Rel Index Troponin T C-Reactive Protein Total Protein Albumin Prealbumin LDL Cholesterol Direct Arterial Blood Glucose Arterial Blood Ionized Calcium Urine WBC (Auto) 03/21/20 03/21/20 03/21/20 07:35 11:45 17:22 WBC RBC Hgb Hct MCV MCH RDW Plt Count Lymph % (Auto) Lymph # (Auto) [place] # (Auto) Seg Neutrophils % Seg Neuts % (Manual) Lymphocytes % (Manual) Monocytes % (Manual) Basophils % (Manual) Seg Neutrophils # Seg Neutrophils # Man Lymphocytes # (Manual) Monocytes # (Manual) Eosinophils # (Manual) Basophils # (Manual) PT INR D-Dimer ABG pH POC ABG pCO2 POC ABG pO2 ABG pO2 ABG HCO3 ABG O2 Saturation ABG Base Excess ABG Hemoglobin ABG Oxyhemoglobin ABG Potassium ABG Glucose Oxyhemoglobin Carboxyhemoglobin Sodium 136 L Potassium Chloride 97.7 L Carbon Dioxide 32 H BUN Creatinine < 0.2 L Glucose 103 H POC Glucose 126 H 120 H Calcium Ferritin Total Bilirubin Alkaline Phosphatase Lactate Dehydrogenase Total Creatine Kinase CK-MB (CK-2) Rel Index Troponin T C-Reactive Protein Total Protein Albumin Prealbumin LDL Cholesterol Direct Arterial Blood Glucose Arterial Blood Ionized Calcium Urine WBC (Auto) 03/22/20 03/22/20 03/22/20 05:09 06:34 06:34 WBC 17.5 H RBC 3.52 L Hgb 10.0 L Hct 30.7 L MCV MCH RDW 17.5 H Plt Count 499 H Lymph % (Auto) Lymph # (Auto) [place] # (Auto) Seg Neutrophils % Seg Neuts % (Manual) 80.0 H Lymphocytes % (Manual) 10.0 L Monocytes % (Manual) Basophils % (Manual) Seg Neutrophils # Seg Neutrophils # Man 14.0 H Lymphocytes # (Manual) Monocytes # (Manual) Eosinophils # (Manual) Basophils # (Manual) PT INR D-Dimer ABG pH POC ABG pCO2 POC ABG pO2 ABG pO2 ABG HCO3 ABG O2 Saturation ABG Base Excess ABG Hemoglobin ABG Oxyhemoglobin ABG Potassium ABG Glucose Oxyhemoglobin Carboxyhemoglobin Sodium Potassium Chloride 96.6 L Carbon Dioxide 38 H BUN Creatinine < 0.2 L Glucose 139 H POC Glucose 125 H Calcium Ferritin Total Bilirubin Alkaline Phosphatase Lactate Dehydrogenase Total Creatine Kinase CK-MB (CK-2) Rel Index Troponin T C-Reactive Protein Total Protein Albumin Prealbumin LDL Cholesterol Direct Arterial Blood Glucose Arterial Blood Ionized Calcium Urine WBC (Auto) 03/22/20 03/22/20 03/22/20 11:45 18:00 23:32 WBC RBC Hgb Hct MCV MCH RDW Plt Count Lymph % (Auto) Lymph # (Auto) [place] # (Auto) Seg Neutrophils % Seg Neuts % (Manual) Lymphocytes % (Manual) Monocytes % (Manual) Basophils % (Manual) Seg Neutrophils # Seg Neutrophils # Man Lymphocytes # (Manual) Monocytes # (Manual) Eosinophils # (Manual) Basophils # (Manual) PT INR D-Dimer ABG pH POC ABG pCO2 POC ABG pO2 ABG pO2 ABG HCO3 ABG O2 Saturation ABG Base Excess ABG Hemoglobin ABG Oxyhemoglobin ABG Potassium ABG Glucose Oxyhemoglobin Carboxyhemoglobin Sodium Potassium Chloride Carbon Dioxide BUN Creatinine Glucose POC Glucose 135 H 133 H Calcium Ferritin Total Bilirubin Alkaline Phosphatase Lactate Dehydrogenase Total Creatine Kinase CK-MB (CK-2) Rel Index Troponin T 0.113 H* C-Reactive Protein Total Protein Albumin Prealbumin LDL Cholesterol Direct Arterial Blood Glucose Arterial Blood Ionized Calcium Urine WBC (Auto) 03/23/20 03/23/20 03/23/20 01:47 06:21 07:57 WBC RBC Hgb Hct MCV MCH RDW Plt Count Lymph % (Auto) Lymph # (Auto) [place] # (Auto) Seg Neutrophils % Seg Neuts % (Manual) Lymphocytes % (Manual) Monocytes % (Manual) Basophils % (Manual) Seg Neutrophils # Seg Neutrophils # Man Lymphocytes # (Manual) Monocytes # (Manual) Eosinophils # (Manual) Basophils # (Manual) PT INR D-Dimer ABG pH POC ABG pCO2 POC ABG pO2 ABG pO2 ABG HCO3 ABG O2 Saturation ABG Base Excess ABG Hemoglobin ABG Oxyhemoglobin ABG Potassium ABG Glucose Oxyhemoglobin Carboxyhemoglobin Sodium Potassium Chloride Carbon Dioxide BUN Creatinine Glucose POC Glucose 130 H Calcium Ferritin Total Bilirubin Alkaline Phosphatase Lactate Dehydrogenase Total Creatine Kinase CK-MB (CK-2) Rel Index Troponin T 0.143 H* D 0.105 H* D C-Reactive Protein Total Protein Albumin Prealbumin LDL Cholesterol Direct Arterial Blood Glucose Arterial Blood Ionized Calcium Urine WBC (Auto) 03/23/20 03/24/20 03/24/20 12:02 05:33 07:15 WBC 18.0 H RBC Hgb 11.0 L Hct 34.0 L MCV MCH RDW 17.4 H Plt Count 520 H Lymph % (Auto) Lymph # (Auto) [place] # (Auto) Seg Neutrophils % Seg Neuts % (Manual) 88.0 H Lymphocytes % (Manual) 7.0 L Monocytes % (Manual) Basophils % (Manual) Seg Neutrophils # Seg Neutrophils # Man 15.8 H Lymphocytes # (Manual) Monocytes # (Manual) Eosinophils # (Manual) Basophils # (Manual) PT INR D-Dimer ABG pH POC ABG pCO2 POC ABG pO2 ABG pO2 ABG HCO3 ABG O2 Saturation ABG Base Excess ABG Hemoglobin ABG Oxyhemoglobin ABG Potassium ABG Glucose Oxyhemoglobin Carboxyhemoglobin Sodium Potassium Chloride Carbon Dioxide BUN Creatinine Glucose POC Glucose 137 H 112 H Calcium Ferritin Total Bilirubin Alkaline Phosphatase Lactate Dehydrogenase Total Creatine Kinase CK-MB (CK-2) Rel Index Troponin T C-Reactive Protein Total Protein Albumin Prealbumin LDL Cholesterol Direct Arterial Blood Glucose Arterial Blood Ionized Calcium Urine WBC (Auto) 03/24/20 03/24/20 03/24/20 07:15 11:22 23:30 WBC RBC Hgb Hct MCV MCH RDW Plt Count Lymph % (Auto) Lymph # (Auto) [place] # (Auto) Seg Neutrophils % Seg Neuts % (Manual) Lymphocytes % (Manual) Monocytes % (Manual) Basophils % (Manual) Seg Neutrophils # Seg Neutrophils # Man Lymphocytes # (Manual) Monocytes # (Manual) Eosinophils # (Manual) Basophils # (Manual) PT INR D-Dimer ABG pH POC ABG pCO2 POC ABG pO2 ABG pO2 ABG HCO3 ABG O2 Saturation ABG Base Excess ABG Hemoglobin ABG Oxyhemoglobin ABG Potassium ABG Glucose Oxyhemoglobin Carboxyhemoglobin Sodium Potassium Chloride 96.6 L Carbon Dioxide 38 H BUN Creatinine < 0.2 L Glucose 141 H POC Glucose 130 H 120 H Calcium Ferritin Total Bilirubin Alkaline Phosphatase Lactate Dehydrogenase Total Creatine Kinase CK-MB (CK-2) Rel Index Troponin T C-Reactive Protein Total Protein Albumin Prealbumin LDL Cholesterol Direct Arterial Blood Glucose Arterial Blood Ionized Calcium Urine WBC (Auto) 03/25/20 03/25/20 03/25/20 05:48 17:53 23:18 WBC RBC Hgb Hct MCV MCH RDW Plt Count Lymph % (Auto) Lymph # (Auto) [place] # (Auto) Seg Neutrophils % Seg Neuts % (Manual) Lymphocytes % (Manual) Monocytes % (Manual) Basophils % (Manual) Seg Neutrophils # Seg Neutrophils # Man Lymphocytes # (Manual) Monocytes # (Manual) Eosinophils # (Manual) Basophils # (Manual) PT INR D-Dimer ABG pH POC ABG pCO2 POC ABG pO2 ABG pO2 ABG HCO3 ABG O2 Saturation ABG Base Excess ABG Hemoglobin ABG Oxyhemoglobin ABG Potassium ABG Glucose Oxyhemoglobin Carboxyhemoglobin Sodium Potassium Chloride Carbon Dioxide BUN Creatinine Glucose POC Glucose 124 H 109 H 131 H Calcium Ferritin Total Bilirubin Alkaline Phosphatase Lactate Dehydrogenase Total Creatine Kinase CK-MB (CK-2) Rel Index Troponin T C-Reactive Protein Total Protein Albumin Prealbumin LDL Cholesterol Direct Arterial Blood Glucose Arterial Blood Ionized Calcium Urine WBC (Auto) 03/26/20 03/26/20 03/26/20 05:21 08:49 08:49 WBC 19.7 H RBC Hgb 10.7 L Hct 33.5 L MCV MCH 27 L RDW 17.1 H Plt Count 480 H Lymph % (Auto) 5.7 L Lymph # (Auto) 1.1 L [place] # (Auto) 1.2 H Seg Neutrophils % 87.7 H Seg Neuts % (Manual) Lymphocytes % (Manual) Monocytes % (Manual) Basophils % (Manual) Seg Neutrophils # 17.2 H Seg Neutrophils # Man Lymphocytes # (Manual) Monocytes # (Manual) Eosinophils # (Manual) Basophils # (Manual) PT INR D-Dimer ABG pH POC ABG pCO2 POC ABG pO2 ABG pO2 ABG HCO3 ABG O2 Saturation ABG Base Excess ABG Hemoglobin ABG Oxyhemoglobin ABG Potassium ABG Glucose Oxyhemoglobin Carboxyhemoglobin Sodium Potassium Chloride 97.2 L Carbon Dioxide 36 H BUN Creatinine < 0.2 L Glucose 127 H POC Glucose 116 H Calcium Ferritin Total Bilirubin Alkaline Phosphatase Lactate Dehydrogenase Total Creatine Kinase CK-MB (CK-2) Rel Index Troponin T C-Reactive Protein Total Protein Albumin Prealbumin LDL Cholesterol Direct Arterial Blood Glucose Arterial Blood Ionized Calcium Urine WBC (Auto) 03/26/20 03/26/20 03/26/20 11:38 18:44 23:06 WBC RBC Hgb Hct MCV MCH RDW Plt Count Lymph % (Auto) Lymph # (Auto) [place] # (Auto) Seg Neutrophils % Seg Neuts % (Manual) Lymphocytes % (Manual) Monocytes % (Manual) Basophils % (Manual) Seg Neutrophils # Seg Neutrophils # Man Lymphocytes # (Manual) Monocytes # (Manual) Eosinophils # (Manual) Basophils # (Manual) PT INR D-Dimer ABG pH POC ABG pCO2 POC ABG pO2 ABG pO2 ABG HCO3 ABG O2 Saturation ABG Base Excess ABG Hemoglobin ABG Oxyhemoglobin ABG Potassium ABG Glucose Oxyhemoglobin Carboxyhemoglobin Sodium Potassium Chloride Carbon Dioxide BUN Creatinine Glucose POC Glucose 120 H 111 H 134 H Calcium Ferritin Total Bilirubin Alkaline Phosphatase Lactate Dehydrogenase Total Creatine Kinase CK-MB (CK-2) Rel Index Troponin T C-Reactive Protein Total Protein Albumin Prealbumin LDL Cholesterol Direct Arterial Blood Glucose Arterial Blood Ionized Calcium Urine WBC (Auto) 03/27/20 03/27/20 03/27/20 05:41 05:59 05:59 WBC 18.6 H RBC Hgb 10.1 L Hct 31.4 L MCV MCH RDW 17.2 H Plt Count Lymph % (Auto) 8.0 L Lymph # (Auto) [place] # (Auto) 1.2 H Seg Neutrophils % 84.7 H Seg Neuts % (Manual) Lymphocytes % (Manual) Monocytes % (Manual) Basophils % (Manual) Seg Neutrophils # 15.8 H Seg Neutrophils # Man Lymphocytes # (Manual) Monocytes # (Manual) Eosinophils # (Manual) Basophils # (Manual) PT INR D-Dimer ABG pH POC ABG pCO2 POC ABG pO2 ABG pO2 ABG HCO3 ABG O2 Saturation ABG Base Excess ABG Hemoglobin ABG Oxyhemoglobin ABG Potassium ABG Glucose Oxyhemoglobin Carboxyhemoglobin Sodium Potassium Chloride Carbon Dioxide 34 H BUN Creatinine < 0.2 L Glucose 127 H POC Glucose 129 H Calcium Ferritin Total Bilirubin Alkaline Phosphatase Lactate Dehydrogenase Total Creatine Kinase CK-MB (CK-2) Rel Index Troponin T C-Reactive Protein Total Protein Albumin Prealbumin LDL Cholesterol Direct Arterial Blood Glucose Arterial Blood Ionized Calcium Urine WBC (Auto) 03/27/20 03/27/20 03/28/20 17:28 23:22 05:23 WBC RBC Hgb Hct MCV MCH RDW Plt Count Lymph % (Auto) Lymph # (Auto) [place] # (Auto) Seg Neutrophils % Seg Neuts % (Manual) Lymphocytes % (Manual) Monocytes % (Manual) Basophils % (Manual) Seg Neutrophils # Seg Neutrophils # Man Lymphocytes # (Manual) Monocytes # (Manual) Eosinophils # (Manual) Basophils # (Manual) PT INR D-Dimer ABG pH POC ABG pCO2 POC ABG pO2 ABG pO2 ABG HCO3 ABG O2 Saturation ABG Base Excess ABG Hemoglobin ABG Oxyhemoglobin ABG Potassium ABG Glucose Oxyhemoglobin Carboxyhemoglobin Sodium Potassium Chloride Carbon Dioxide BUN Creatinine Glucose POC Glucose 108 H 119 H 129 H Calcium Ferritin Total Bilirubin Alkaline Phosphatase Lactate Dehydrogenase Total Creatine Kinase CK-MB (CK-2) Rel Index Troponin T C-Reactive Protein Total Protein Albumin Prealbumin LDL Cholesterol Direct Arterial Blood Glucose Arterial Blood Ionized Calcium Urine WBC (Auto) 03/28/20 03/28/20 03/28/20 10:28 10:28 11:36 WBC 23.6 H RBC 3.62 L Hgb 10.0 L Hct 30.8 L MCV MCH RDW 16.4 H Plt Count Lymph % (Auto) Lymph # (Auto) [place] # (Auto) Seg Neutrophils % Seg Neuts % (Manual) 89.0 H Lymphocytes % (Manual) 5.0 L Monocytes % (Manual) Basophils % (Manual) Seg Neutrophils # Seg Neutrophils # Man 21.0 H Lymphocytes # (Manual) Monocytes # (Manual) 1.2 H Eosinophils # (Manual) Basophils # (Manual) 0.2 H PT INR D-Dimer ABG pH POC ABG pCO2 POC ABG pO2 ABG pO2 ABG HCO3 ABG O2 Saturation ABG Base Excess ABG Hemoglobin ABG Oxyhemoglobin ABG Potassium ABG Glucose Oxyhemoglobin Carboxyhemoglobin Sodium 134 L Potassium Chloride 94.2 L Carbon Dioxide 35 H BUN Creatinine < 0.2 L Glucose 134 H POC Glucose Calcium Ferritin Total Bilirubin Alkaline Phosphatase Lactate Dehydrogenase Total Creatine Kinase CK-MB (CK-2) Rel Index Troponin T C-Reactive Protein Total Protein Albumin Prealbumin LDL Cholesterol Direct Arterial Blood Glucose Arterial Blood Ionized Calcium Urine WBC (Auto) 39.0 H 03/28/20 03/28/20 03/28/20 11:51 17:08 17:17 WBC RBC Hgb Hct MCV MCH RDW Plt Count Lymph % (Auto) Lymph # (Auto) [place] # (Auto) Seg Neutrophils % Seg Neuts % (Manual) Lymphocytes % (Manual) Monocytes % (Manual) Basophils % (Manual) Seg Neutrophils # Seg Neutrophils # Man Lymphocytes # (Manual) Monocytes # (Manual) Eosinophils # (Manual) Basophils # (Manual) PT INR D-Dimer ABG pH POC ABG pCO2 POC ABG pO2 ABG pO2 ABG HCO3 ABG O2 Saturation ABG Base Excess ABG Hemoglobin ABG Oxyhemoglobin ABG Potassium ABG Glucose Oxyhemoglobin Carboxyhemoglobin Sodium Potassium Chloride Carbon Dioxide BUN Creatinine Glucose POC Glucose 123 H 112 H Calcium Ferritin Total Bilirubin Alkaline Phosphatase Lactate Dehydrogenase Total Creatine Kinase 47 L CK-MB (CK-2) Rel Index 4.6 H Troponin T 0.090 H C-Reactive Protein Total Protein Albumin Prealbumin LDL Cholesterol Direct Arterial Blood Glucose Arterial Blood Ionized Calcium Urine WBC (Auto) 03/28/20 03/29/20 03/29/20 23:22 05:22 10:58 WBC RBC Hgb Hct MCV MCH RDW Plt Count Lymph % (Auto) Lymph # (Auto) [place] # (Auto) Seg Neutrophils % Seg Neuts % (Manual) Lymphocytes % (Manual) Monocytes % (Manual) Basophils % (Manual) Seg Neutrophils # Seg Neutrophils # Man Lymphocytes # (Manual) Monocytes # (Manual) Eosinophils # (Manual) Basophils # (Manual) PT INR D-Dimer ABG pH POC ABG pCO2 POC ABG pO2 ABG pO2 ABG HCO3 ABG O2 Saturation ABG Base Excess ABG Hemoglobin ABG Oxyhemoglobin ABG Potassium ABG Glucose Oxyhemoglobin Carboxyhemoglobin Sodium Potassium Chloride Carbon Dioxide BUN Creatinine Glucose POC Glucose 122 H 116 H 133 H Calcium Ferritin Total Bilirubin Alkaline Phosphatase Lactate Dehydrogenase Total Creatine Kinase CK-MB (CK-2) Rel Index Troponin T C-Reactive Protein Total Protein Albumin Prealbumin LDL Cholesterol Direct Arterial Blood Glucose Arterial Blood Ionized Calcium Urine WBC (Auto) 03/29/20 03/29/20 03/30/20 17:18 23:14 04:57 WBC RBC Hgb Hct MCV MCH RDW Plt Count Lymph % (Auto) Lymph # (Auto) [place] # (Auto) Seg Neutrophils % Seg Neuts % (Manual) Lymphocytes % (Manual) Monocytes % (Manual) Basophils % (Manual) Seg Neutrophils # Seg Neutrophils # Man Lymphocytes # (Manual) Monocytes # (Manual) Eosinophils # (Manual) Basophils # (Manual) PT INR D-Dimer ABG pH POC ABG pCO2 POC ABG pO2 ABG pO2 ABG HCO3 ABG O2 Saturation ABG Base Excess ABG Hemoglobin ABG Oxyhemoglobin ABG Potassium ABG Glucose Oxyhemoglobin Carboxyhemoglobin Sodium Potassium Chloride Carbon Dioxide BUN Creatinine Glucose POC Glucose 111 H 114 H 130 H Calcium Ferritin Total Bilirubin Alkaline Phosphatase Lactate Dehydrogenase Total Creatine Kinase CK-MB (CK-2) Rel Index Troponin T C-Reactive Protein Total Protein Albumin Prealbumin LDL Cholesterol Direct Arterial Blood Glucose Arterial Blood Ionized Calcium Urine WBC (Auto) 03/30/20 03/30/20 03/30/20 11:38 14:47 14:47 WBC 19.9 H RBC Hgb 10.9 L Hct 34.4 L MCV MCH 27 L RDW 16.5 H Plt Count 441 H Lymph % (Auto) 6.4 L Lymph # (Auto) [place] # (Auto) 1.4 H Seg Neutrophils % 86.1 H Seg Neuts % (Manual) Lymphocytes % (Manual) Monocytes % (Manual) Basophils % (Manual) Seg Neutrophils # 17.1 H Seg Neutrophils # Man Lymphocytes # (Manual) Monocytes # (Manual) Eosinophils # (Manual) Basophils # (Manual) PT INR D-Dimer ABG pH POC ABG pCO2 POC ABG pO2 ABG pO2 ABG HCO3 ABG O2 Saturation ABG Base Excess ABG Hemoglobin ABG Oxyhemoglobin ABG Potassium ABG Glucose Oxyhemoglobin Carboxyhemoglobin Sodium 133 L Potassium Chloride 94.6 L Carbon Dioxide 33 H BUN Creatinine < 0.2 L Glucose 194 H POC Glucose 139 H Calcium Ferritin Total Bilirubin Alkaline Phosphatase Lactate Dehydrogenase Total Creatine Kinase CK-MB (CK-2) Rel Index Troponin T C-Reactive Protein Total Protein Albumin 2.8 L Prealbumin LDL Cholesterol Direct Arterial Blood Glucose Arterial Blood Ionized Calcium Urine WBC (Auto) 03/30/20 03/31/20 03/31/20 17:07 05:02 15:21 WBC RBC Hgb Hct MCV MCH RDW Plt Count Lymph % (Auto) Lymph # (Auto) [place] # (Auto) Seg Neutrophils % Seg Neuts % (Manual) Lymphocytes % (Manual) Monocytes % (Manual) Basophils % (Manual) Seg Neutrophils # Seg Neutrophils # Man Lymphocytes # (Manual) Monocytes # (Manual) Eosinophils # (Manual) Basophils # (Manual) PT INR D-Dimer ABG pH POC ABG pCO2 POC ABG pO2 ABG pO2 ABG HCO3 ABG O2 Saturation ABG Base Excess ABG Hemoglobin ABG Oxyhemoglobin ABG Potassium ABG Glucose Oxyhemoglobin Carboxyhemoglobin Sodium Potassium Chloride Carbon Dioxide BUN Creatinine Glucose POC Glucose 163 H 108 H 110 H Calcium Ferritin Total Bilirubin Alkaline Phosphatase Lactate Dehydrogenase Total Creatine Kinase CK-MB (CK-2) Rel Index Troponin T C-Reactive Protein Total Protein Albumin Prealbumin LDL Cholesterol Direct Arterial Blood Glucose Arterial Blood Ionized Calcium Urine WBC (Auto) 03/31/20 03/31/20 04/01/20 17:58 23:19 05:09 WBC RBC Hgb Hct MCV MCH RDW Plt Count Lymph % (Auto) Lymph # (Auto) [place] # (Auto) Seg Neutrophils % Seg Neuts % (Manual) Lymphocytes % (Manual) Monocytes % (Manual) Basophils % (Manual) Seg Neutrophils # Seg Neutrophils # Man Lymphocytes # (Manual) Monocytes # (Manual) Eosinophils # (Manual) Basophils # (Manual) PT INR D-Dimer ABG pH POC ABG pCO2 POC ABG pO2 ABG pO2 ABG HCO3 ABG O2 Saturation ABG Base Excess ABG Hemoglobin ABG Oxyhemoglobin ABG Potassium ABG Glucose Oxyhemoglobin Carboxyhemoglobin Sodium Potassium Chloride Carbon Dioxide BUN Creatinine Glucose POC Glucose 110 H 131 H 124 H Calcium Ferritin Total Bilirubin Alkaline Phosphatase Lactate Dehydrogenase Total Creatine Kinase CK-MB (CK-2) Rel Index Troponin T C-Reactive Protein Total Protein Albumin Prealbumin LDL Cholesterol Direct Arterial Blood Glucose Arterial Blood Ionized Calcium Urine WBC (Auto) 04/01/20 04/01/20 04/01/20 11:50 17:01 23:21 WBC RBC Hgb Hct MCV MCH RDW Plt Count Lymph % (Auto) Lymph # (Auto) [place] # (Auto) Seg Neutrophils % Seg Neuts % (Manual) Lymphocytes % (Manual) Monocytes % (Manual) Basophils % (Manual) Seg Neutrophils # Seg Neutrophils # Man Lymphocytes # (Manual) Monocytes # (Manual) Eosinophils # (Manual) Basophils # (Manual) PT INR D-Dimer ABG pH POC ABG pCO2 POC ABG pO2 ABG pO2 ABG HCO3 ABG O2 Saturation ABG Base Excess ABG Hemoglobin ABG Oxyhemoglobin ABG Potassium ABG Glucose Oxyhemoglobin Carboxyhemoglobin Sodium Potassium Chloride Carbon Dioxide BUN Creatinine Glucose POC Glucose 136 H 115 H 124 H Calcium Ferritin Total Bilirubin Alkaline Phosphatase Lactate Dehydrogenase Total Creatine Kinase CK-MB (CK-2) Rel Index Troponin T C-Reactive Protein Total Protein Albumin Prealbumin LDL Cholesterol Direct Arterial Blood Glucose Arterial Blood Ionized Calcium Urine WBC (Auto) 04/02/20 04/02/20 04/02/20 05:27 11:58 17:58 WBC RBC Hgb Hct MCV MCH RDW Plt Count Lymph % (Auto) Lymph # (Auto) [place] # (Auto) Seg Neutrophils % Seg Neuts % (Manual) Lymphocytes % (Manual) Monocytes % (Manual) Basophils % (Manual) Seg Neutrophils # Seg Neutrophils # Man Lymphocytes # (Manual) Monocytes # (Manual) Eosinophils # (Manual) Basophils # (Manual) PT INR D-Dimer ABG pH POC ABG pCO2 POC ABG pO2 ABG pO2 ABG HCO3 ABG O2 Saturation ABG Base Excess ABG Hemoglobin ABG Oxyhemoglobin ABG Potassium ABG Glucose Oxyhemoglobin Carboxyhemoglobin Sodium Potassium Chloride Carbon Dioxide BUN Creatinine Glucose POC Glucose 117 H 133 H 122 H Calcium Ferritin Total Bilirubin Alkaline Phosphatase Lactate Dehydrogenase Total Creatine Kinase CK-MB (CK-2) Rel Index Troponin T C-Reactive Protein Total Protein Albumin Prealbumin LDL Cholesterol Direct Arterial Blood Glucose Arterial Blood Ionized Calcium Urine WBC (Auto) 04/02/20 04/03/20 04/03/20 23:12 05:11 11:11 WBC RBC Hgb Hct MCV MCH RDW Plt Count Lymph % (Auto) Lymph # (Auto) [place] # (Auto) Seg Neutrophils % Seg Neuts % (Manual) Lymphocytes % (Manual) Monocytes % (Manual) Basophils % (Manual) Seg Neutrophils # Seg Neutrophils # Man Lymphocytes # (Manual) Monocytes # (Manual) Eosinophils # (Manual) Basophils # (Manual) PT INR D-Dimer ABG pH POC ABG pCO2 POC ABG pO2 ABG pO2 ABG HCO3 ABG O2 Saturation ABG Base Excess ABG Hemoglobin ABG Oxyhemoglobin ABG Potassium ABG Glucose Oxyhemoglobin Carboxyhemoglobin Sodium Potassium Chloride Carbon Dioxide BUN Creatinine Glucose POC Glucose 130 H 139 H 136 H Calcium Ferritin Total Bilirubin Alkaline Phosphatase Lactate Dehydrogenase Total Creatine Kinase CK-MB (CK-2) Rel Index Troponin T C-Reactive Protein Total Protein Albumin Prealbumin LDL Cholesterol Direct Arterial Blood Glucose Arterial Blood Ionized Calcium Urine WBC (Auto) 04/03/20 04/03/20 04/04/20 16:51 23:25 05:29 WBC RBC Hgb Hct MCV MCH RDW Plt Count Lymph % (Auto) Lymph # (Auto) [place] # (Auto) Seg Neutrophils % Seg Neuts % (Manual) Lymphocytes % (Manual) Monocytes % (Manual) Basophils % (Manual) Seg Neutrophils # Seg Neutrophils # Man Lymphocytes # (Manual) Monocytes # (Manual) Eosinophils # (Manual) Basophils # (Manual) PT INR D-Dimer ABG pH POC ABG pCO2 POC ABG pO2 ABG pO2 ABG HCO3 ABG O2 Saturation ABG Base Excess ABG Hemoglobin ABG Oxyhemoglobin ABG Potassium ABG Glucose Oxyhemoglobin Carboxyhemoglobin Sodium Potassium Chloride Carbon Dioxide BUN Creatinine Glucose POC Glucose 118 H 111 H 126 H Calcium Ferritin Total Bilirubin Alkaline Phosphatase Lactate Dehydrogenase Total Creatine Kinase CK-MB (CK-2) Rel Index Troponin T C-Reactive Protein Total Protein Albumin Prealbumin LDL Cholesterol Direct Arterial Blood Glucose Arterial Blood Ionized Calcium Urine WBC (Auto) 04/04/20 04/04/20 04/04/20 11:47 17:41 23:05 WBC RBC Hgb Hct MCV MCH RDW Plt Count Lymph % (Auto) Lymph # (Auto) [place] # (Auto) Seg Neutrophils % Seg Neuts % (Manual) Lymphocytes % (Manual) Monocytes % (Manual) Basophils % (Manual) Seg Neutrophils # Seg Neutrophils # Man Lymphocytes # (Manual) Monocytes # (Manual) Eosinophils # (Manual) Basophils # (Manual) PT INR D-Dimer ABG pH POC ABG pCO2 POC ABG pO2 ABG pO2 ABG HCO3 ABG O2 Saturation ABG Base Excess ABG Hemoglobin ABG Oxyhemoglobin ABG Potassium ABG Glucose Oxyhemoglobin Carboxyhemoglobin Sodium Potassium Chloride Carbon Dioxide BUN Creatinine Glucose POC Glucose 123 H 120 H 119 H Calcium Ferritin Total Bilirubin Alkaline Phosphatase Lactate Dehydrogenase Total Creatine Kinase CK-MB (CK-2) Rel Index Troponin T C-Reactive Protein Total Protein Albumin Prealbumin LDL Cholesterol Direct Arterial Blood Glucose Arterial Blood Ionized Calcium Urine WBC (Auto) 04/05/20 04/05/20 04/05/20 05:14 12:16 18:48 WBC RBC Hgb Hct MCV MCH RDW Plt Count Lymph % (Auto) Lymph # (Auto) [place] # (Auto) Seg Neutrophils % Seg Neuts % (Manual) Lymphocytes % (Manual) Monocytes % (Manual) Basophils % (Manual) Seg Neutrophils # Seg Neutrophils # Man Lymphocytes # (Manual) Monocytes # (Manual) Eosinophils # (Manual) Basophils # (Manual) PT INR D-Dimer ABG pH POC ABG pCO2 POC ABG pO2 ABG pO2 ABG HCO3 ABG O2 Saturation ABG Base Excess ABG Hemoglobin ABG Oxyhemoglobin ABG Potassium ABG Glucose Oxyhemoglobin Carboxyhemoglobin Sodium Potassium Chloride Carbon Dioxide BUN Creatinine Glucose POC Glucose 123 H 148 H 106 H Calcium Ferritin Total Bilirubin Alkaline Phosphatase Lactate Dehydrogenase Total Creatine Kinase CK-MB (CK-2) Rel Index Troponin T C-Reactive Protein Total Protein Albumin Prealbumin LDL Cholesterol Direct Arterial Blood Glucose Arterial Blood Ionized Calcium Urine WBC (Auto) 04/06/20 04/06/20 04/06/20 00:47 03:26 08:24 WBC RBC Hgb Hct MCV MCH RDW Plt Count Lymph % (Auto) Lymph # (Auto) [place] # (Auto) Seg Neutrophils % Seg Neuts % (Manual) Lymphocytes % (Manual) Monocytes % (Manual) Basophils % (Manual) Seg Neutrophils # Seg Neutrophils # Man Lymphocytes # (Manual) Monocytes # (Manual) Eosinophils # (Manual) Basophils # (Manual) PT INR D-Dimer ABG pH POC ABG pCO2 POC ABG pO2 ABG pO2 ABG HCO3 ABG O2 Saturation ABG Base Excess ABG Hemoglobin ABG Oxyhemoglobin ABG Potassium ABG Glucose Oxyhemoglobin Carboxyhemoglobin Sodium Potassium Chloride Carbon Dioxide BUN Creatinine Glucose POC Glucose 129 H 134 H 131 H Calcium Ferritin Total Bilirubin Alkaline Phosphatase Lactate Dehydrogenase Total Creatine Kinase CK-MB (CK-2) Rel Index Troponin T C-Reactive Protein Total Protein Albumin Prealbumin LDL Cholesterol Direct Arterial Blood Glucose Arterial Blood Ionized Calcium Urine WBC (Auto) 04/06/20 04/06/20 04/06/20 11:16 16:27 23:01 WBC RBC Hgb Hct MCV MCH RDW Plt Count Lymph % (Auto) Lymph # (Auto) [place] # (Auto) Seg Neutrophils % Seg Neuts % (Manual) Lymphocytes % (Manual) Monocytes % (Manual) Basophils % (Manual) Seg Neutrophils # Seg Neutrophils # Man Lymphocytes # (Manual) Monocytes # (Manual) Eosinophils # (Manual) Basophils # (Manual) PT INR D-Dimer ABG pH POC ABG pCO2 POC ABG pO2 ABG pO2 ABG HCO3 ABG O2 Saturation ABG Base Excess ABG Hemoglobin ABG Oxyhemoglobin ABG Potassium ABG Glucose Oxyhemoglobin Carboxyhemoglobin Sodium Potassium Chloride Carbon Dioxide BUN Creatinine Glucose POC Glucose 131 H 107 H 125 H Calcium Ferritin Total Bilirubin Alkaline Phosphatase Lactate Dehydrogenase Total Creatine Kinase CK-MB (CK-2) Rel Index Troponin T C-Reactive Protein Total Protein Albumin Prealbumin LDL Cholesterol Direct Arterial Blood Glucose Arterial Blood Ionized Calcium Urine WBC (Auto) 04/07/20 04/07/20 05:24 12:41 WBC RBC Hgb Hct MCV MCH RDW Plt Count Lymph % (Auto) Lymph # (Auto) [place] # (Auto) Seg Neutrophils % Seg Neuts % (Manual) Lymphocytes % (Manual) Monocytes % (Manual) Basophils % (Manual) Seg Neutrophils # Seg Neutrophils # Man Lymphocytes # (Manual) Monocytes # (Manual) Eosinophils # (Manual) Basophils # (Manual) PT INR D-Dimer ABG pH POC ABG pCO2 POC ABG pO2 ABG pO2 ABG HCO3 ABG O2 Saturation ABG Base Excess ABG Hemoglobin ABG Oxyhemoglobin ABG Potassium ABG Glucose Oxyhemoglobin Carboxyhemoglobin Sodium Potassium Chloride Carbon Dioxide BUN Creatinine Glucose POC Glucose 125 H 145 H Calcium Ferritin Total Bilirubin Alkaline Phosphatase Lactate Dehydrogenase Total Creatine Kinase CK-MB (CK-2) Rel Index Troponin T C-Reactive Protein Total Protein Albumin Prealbumin LDL Cholesterol Direct Arterial Blood Glucose Arterial Blood Ionized Calcium Urine WBC (Auto) Allied health notes reviewed: RT
[2020-04-07] MEDS: ACETAMINOPHEN 325 MG TAB PO PRN (20:09)
[2020-04-07] MEDS: SENNOSIDES 8.6 MG TAB PO SCH (23:22)
[2020-04-07] MEDS: ZOLPIDEM 5 MG TAB PO PRN (23:22)
[2020-04-07] MEDS: ENOXAPARIN 40 MG/0.4 ML INJ SUB-Q SCH (23:23)
[2020-04-08] MEDS: MORPHINE 2 MG/1 ML INJ IV PRN ×4 (05:42→21:31)
--- NOTE | 2020-04-08 08:46 | Progress Note ---
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 Patient was on a trilogy machine for breathing 18/11. EMS arrived, patient had O2 sats in the 80s. EMS attempted to place patient on their CPAP machine, hill john patient did not tolerate. Patient was admitted to the ICU with diagnosis of acute hypoxic respiratory failure and placed on BiPAP. Patient initially tolerated but later deteriorated with respiratory status. CTA chest showed no PE but significant for bilateral pneumonia. Doppler ultrasound also negative for DVT. COVID-19 test ordered. Due to persistent hypoxia, patient was intubated on 02/26/2020 at 1500. Patient now on mechanical ventilation in the ICU. 02/26/2020. Blood cultures are negative x48 hours and Covid testing negative as well. Continue antibiotics per ID recommendations for community-acquired bilateral pneumonia. Cardiology consultation for elevated troponin. Check echocardiogram. 02/27/2020. Events of yesterday noted with asystole following V. fib arrest. Patient currently on AC mode rate 20, tidal volume 400, FiO2 50% and a PEEP of 6. Follow-up echocardiogram for elevated troponin. Cardiology suspects NSTEMI Type 2 in the setting of acute resp failure. Chest CTA and BLE Dopplers neg. we will discontinue Decadron given the Covid PCR is negative. 02/25/2020. CTA of the chest reveals no PE but does illustrate the bilateral pneumonia. Doppler ultrasound also negative for DVT. Blood cultures are pending. Await COVID-19 testing. Patient currently requiring BiPAP IPAP 24/EPAP 6 with FiO2 of 25%. Continue O2 and BiPAP as clinically indicated. ID and pulmonary consulted. 02/26/2020. Blood cultures are negative x48 hours and Covid testing negative as well. Continue antibiotics per ID recommendations for community-acquired bilateral pneumonia. Cardiology consultation for elevated troponin. Check echocardiogram. 02/27/2020. Events of yesterday noted with asystole following V. fib arrest. Patient currently on AC mode rate 20, tidal volume 400, FiO2 50% and a PEEP of 6. Follow-up echocardiogram for elevated troponin. Cardiology suspects NSTEMI Type 2 in the setting of acute resp failure. Chest CTA and BLE Dopplers neg. we will discontinue Decadron given the Covid PCR is negative. 02/28/2020. I spoke with the sister Felisa Eli who is the power of immigration attorney regarding advanced directives and she instructed me that she would like to continue with aggressive care at this time. I informed her of the guarded prognosis and high mortality/morbidity and she voiced understanding. Patient currently with AC mode ventilation rate 18, tidal volume 400, FiO2 40% and a PEEP of 6. Continue antibiotics for pneumonia. ID previously consulted. Also consult neurology with regards to ALS. 02/29/2020; patient is intubated and on CPAP patient is alert and oriented. Patient has ALS. Dr. Álvarez spoke with his sister and she wants aggressive care. Continue antibiotics for pneumonia. Neurology consulted for ALS. Prognosis poor 03/01/2020; patient is intubated and on CPAP, patient is alert and oriented. I spoke with his 2 sisters about the management plan. 03/02/2020; patient is intubated and on CPAP. Patient was alert and oriented. I spoke with Dr. mohr and he thinks patient may need mechanical ventilation, likely his disease progressed. Dr. Flowers did debridement this morning. 03/03/2020; patient is intubated and on CPAP, patient was on trilogy and BiPAP at home. Patient has ALS. on spontaneous breathing trial. Patient is alert and oriented but quadriplegic. Patient has severe bilateral pneumonia and is on cefepime and Vanco, ID is following. Patient has sacral decubitus ulcer and debridement was done by Dr. Flowers and there is no osteomyelitis. 03/05. Patient still on broad-spectrum antibiotics. Status post sacral decubitus ulcer debridements-no osteomyelitis. Patient is on AC 25/400/30% PEEP 5. No blood gas results today. 03/06. Plan for tracheostomy by surgery. Still remains intubated. Labs reviewed-sodium 150. Started on free water 200 every 8hr. trend sodium. 03/07: s/p trach placement today, patient placed back on mechanical ventilation with trach. Plan to resume tube feeding with NG tube. Continue to monitor vitals, monitor BMP. 03/08: Patient noted to have distended abdomen with low urinary output. Obtain bladder scan rule out urine retention, UA and urine culture, continue to follow clinically. 03/09: Patient noted to have low blood pressure with SBP as low as 70s. Ordered for 500 mils normal saline bolus. CT abdomen showed bladder outlet obstruction, urology consulted. 03/10: placed on drake by urology o/n, improved urine outpt. cont to monitor BMP. resuded TF - cont free water with TF. wean off from vent as tolerated. 03/11: Vitals stable. cont TF, wean off from vent as tolerated. start on 1/2 NS for hypernatremia - follow BMP 03/12: wean off vent as tolerated, plan for speech eval, cont Tf for now, cont iv fluid 03/13: unable to wean off from vent, unable to do speech therapy eval. will need PEG tube, cont supportive care for now, cont NG tube feeding 03/14: consulted GI for PEg placemnet, cont supportive care. remains on vent at night 03/15: Discussed with GI, plan for PEG tube placement possibly tomorrow. Continue supportive care and wean off from vent as tolerated. Hold Lovenox dose tonight. 03/16: family didnot consent for PEG placement yesterday. I spoke with the daughter today and she is now agreeable for PEG tube. I explained the necessity of the procedure with RN to the patient also and he nodded started on tube feeding, for the procedure. will cont supportive care. planned for PEG tube placement tomorrow. 03/17: s/p PEG placement today, patient tolerated well, cont supportive care 03/18: Started on tube feeding with new PEG tube, continue to wean off vent as tolerated 03/19: cont to monitor with supportive care, wean off vent as tolerated 03/20: Continue to wean off vent as tolerated -but failing weaning trial. Still requiring vent support at night. Currently on PEG tube for tube feed. 03/21. Pt with PSV trials with FiO@ 30%, PEEP 6, PS 10. Currently on PEG tube for tube feed. 03/22/2020. Continue PSV trials per pulmonary. Continue bronchodilators. Patient tolerating tube feedings. Continue Robinul for secretion control. 03/23/2020. Continue PSV trials per pulmonary. Continue bronchodilators. Continue Scopolamine and Robinul for secretion control. Trach care/airway management. Mobility protocols for pressure ulcer prophylaxis. LTAC evaluation per case management 03/24/2020. Continue PSV trials with current settings pressure support 10, PEEP 6 and FiO2 30%. Continue bronchodilators/nebulizer. Continue Scopolamine and Robinul for secretion control. Trach care/airway management. Mobility protocols for pressure ulcer prophylaxis. LTAC evaluation per case management 03/25/2020. Pulmonary to proceed with T-piece trials today. Continue bronchodilators/nebulizer. Continue Scopolamine and Robinul for secretion control. Trach care/airway management. Mobility protocols for pressure ulcer prophylaxis. 03/26/2020. Patient currently with PSV 10/6 at FiO2 of 30%. Continue weaning and T-piece trials per protocol. Continue bronchodilators/nebulizer. Continue Scopolamine and Robinul for secretion control. Trach care/airway management. Mobility protocols for pressure ulcer prophylaxis. Continue tube feeding with aspiration precautions. 03/27/2020. Patient currently with PSV 10/6 at FiO2 of 30%. Continue weaning and T-piece trials per protocol. Continue bronchodilators/nebulizer. Continue Scopolamine and Robinul for secretion control. Trach care/airway management. Mobility protocols for pressure ulcer prophylaxis. Continue tube feeding with aspiration precautions. 03/28. Had temp 100.7F. He has been off antibiotics. Will send blood culture, ua, urine culture and chest xray. Had chest pain overnight and trop was elevated as well. Cardiology to evaluate 03/29. Has back pain due to position. He mentions his chest pain is positional. Has no other complaints. Still on mechanical ventilation 03/30. No chest pain today. Labs reviewed. Discussed chest pain with cardiology and team advised no further work up at this time. Can follow up with cardiology in the office after hospitalization 03/31. Lidocaine patch for lower back pain. 04/01. Discharge planning underway. CM notes reviewed. Discussed with daughter 04/02 - . CM trying to arrange discharge. Continue PSV trials. Discussed with patients significant other 04/04/2020; CM is working for discharge arrangement. Continue PSV trials. 04/05/2020; patient was seen and evaluated this morning and no change from baseline. Continue with PSV trials. Follow with professor of anthropology for discharge planning. 04/06/2020;patient was seen and evaluated this morning and no change from baseli ne. Continue with PSV trials. Follow with professor of anthropology for discharge planning. 04/07/2020; patient was seen and evaluated this morning and no change from baseline. Continue with PSV trials. Follow with professor of anthropology for discharge planning. 04/08/2020; patient is vent dependent. Discharge is per professor of anthropology. The high probability of a clinically significant, sudden or life threatening deterioration of the [cardiac and respiratory] system(s) required my full and direct attention, intervention and personal management. The aggregate critical care time was [32] minutes. This time is in addition to time spent performing reported procedures but includes the following: [x] Data Review and interpretation [x] Patient assessment and monitoring of vital signs [x] Documentation [x] Medication orders and management History Interval history: Patient was seen and evaluated this morning Patient is intubated, on trach Patient is awake Hospitalist Physical - Physical exam Narrative exam: Intubated, on a trach The patient appeared well nourished and normally developed. Vital signs as documented. Head exam is unremarkable. No scleral icterus . Neck is without jugular venous distension, thyromegaly, or carotid bruits. Lungs are clear to auscultation. Cardiac exam reveals regular rate and Rhythm. Abdominal exam reveals normal bowel sounds, nontender, no organomegaly. Extremities are nonedematous and both femoral and pedal pulses are normal. 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 - Constitutional Vitals: Temp Pulse Resp BP Pulse Ox 98.7 F 118 H 20 102/72 97 04/08/20 07:55 04/08/20 06:00 04/08/20 06:12 04/08/20 06:00 04/08/20 06:00 General appearance: Present: mild distress, other (Intubated on mechanical ventilation) HEART Score - HEART Score Troponin: Troponin T 0.090 ng/mL (0.00-0.029) H 03/28/20 17:17 Results - Labs CBC & Chem 7: 03/30/20 14:47 03/30/20 14:47 Labs: Laboratory Last Values WBC 19.9 K/mm3 (4.5-11.0) H 03/30/20 14:47 RBC 4.01 M/mm3 (3.65-5.03) 03/30/20 14:47 Hgb 10.9 gm/dl (11.8-15.2) L 03/30/20 14:47 Hct 34.4 % (35.5-45.6) L 03/30/20 14:47 MCV 86 fl (84-94) 03/30/20 14:47 MCH 27 pg (28-32) L 03/30/20 14:47 MCHC 32 % (32-34) 03/30/20 14:47 RDW 16.5 % (13.2-15.2) H 03/30/20 14:47 Plt Count 441 K/mm3 (140-440) H 03/30/20 14:47 Lymph % (Auto) 6.4 % (13.4-35.0) L 03/30/20 14:47 [place] % (Auto) 7.2 % (0.0-7.3) 03/30/20 14:47 Eos % (Auto) 0.1 % (0.0-4.3) 03/30/20 14:47 Baso % (Auto) 0.2 % (0.0-1.8) 03/30/20 14:47 Lymph # (Auto) 1.3 K/mm3 (1.2-5.4) 03/30/20 14:47 [place] # (Auto) 1.4 K/mm3 (0.0-0.8) H 03/30/20 14:47 Eos # (Auto) 0.0 K/mm3 (0.0-0.4) 03/30/20 14:47 Baso # (Auto) 0.0 K/mm3 (0.0-0.1) 03/30/20 14:47 Add Manual Diff Complete 03/28/20 10:28 Total Counted 100 03/28/20 10:28 Seg Neutrophils % 86.1 % (40.0-70.0) H 03/30/20 14:47 Seg Neuts % (Manual) 89.0 % (40.0-70.0) H 03/28/20 10:28 Band Neutrophils % 0 % 03/28/20 10:28 Lymphocytes % (Manual) 5.0 % (13.4-35.0) L 03/28/20 10:28 Reactive Lymphs % (Man) 0 % 03/28/20 10:28 Monocytes % (Manual) 5.0 % (0.0-7.3) 03/28/20 10:28 Eosinophils % (Manual) 0 % (0.0-4.3) 03/28/20 10:28 Basophils % (Manual) 1.0 % (0.0-1.8) 03/28/20 10:28 Metamyelocytes % 0 % 03/28/20 10:28 Myelocytes % 0 % 03/28/20 10:28 Promyelocytes % 0 % 03/28/20 10:28 Blast Cells % 0 % 03/28/20 10:28 Nucleated RBC % Not Reportable 03/28/20 10:28 Seg Neutrophils # 17.1 K/mm3 (1.8-7.7) H 03/30/20 14:47 Seg Neutrophils # Man 21.0 K/mm3 (1.8-7.7) H 03/28/20 10:28 Band Neutrophils # 0.0 K/mm3 03/28/20 10:28 Lymphocytes # (Manual) 1.2 K/mm3 (1.2-5.4) 03/28/20 10:28 Abs React Lymphs (Man) 0.0 K/mm3 03/28/20 10:28 Monocytes # (Manual) 1.2 K/mm3 (0.0-0.8) H 03/28/20 10:28 Eosinophils # (Manual) 0.0 K/mm3 (0.0-0.4) 03/28/20 10:28 Basophils # (Manual) 0.2 K/mm3 (0.0-0.1) H 03/28/20 10:28 Metamyelocytes # 0.0 K/mm3 03/28/20 10:28 Myelocytes # 0.0 K/mm3 03/28/20 10:28 Promyelocytes # 0.0 K/mm3 03/28/20 10:28 Blast Cells # 0.0 K/mm3 03/28/20 10:28 WBC Morphology Not Reportable 03/28/20 10:28 Hypersegmented Neuts Not Reportable 03/28/20 10:28 Hyposegmented Neuts Not Reportable 03/28/20 10:28 Hypogranular Neuts Not Reportable 03/28/20 10:28 Smudge Cells Not Reportable 03/28/20 10:28 Toxic Granulation 1+ 03/28/20 10:28 Toxic Vacuolation Not Reportable 03/28/20 10:28 Dohle Bodies Not Reportable 03/28/20 10:28 Pelger-Huet Anomaly Not Reportable 03/28/20 10:28 Robert Rods Not Reportable 03/28/20 10:28 Platelet Estimate Consistent w auto 03/28/20 10:28 Clumped Platelets Not Reportable 03/28/20 10:28 Plt Clumps, EDTA Not Reportable 03/28/20 10:28 Large Platelets Not Reportable 03/28/20 10:28 Giant Platelets Not Reportable 03/28/20 10:28 Platelet Satelliting Not Reportable 03/28/20 10:28 Plt Morphology Comment Not Reportable 03/28/20 10:28 RBC Morphology Not Reportable 03/28/20 10:28 Dimorphic RBCs Not Reportable 03/28/20 10:28 Polychromasia Not Reportable 03/28/20 10:28 Hypochromasia Not Reportable 03/28/20 10:28 Poikilocytosis Not Reportable 03/28/20 10:28 Anisocytosis 1+ 03/28/20 10:28 Microcytosis Not Reportable 03/28/20 10:28 Macrocytosis Not Reportable 03/28/20 10:28 Spherocytes Not Reportable 03/28/20 10:28 Pappenheimer Bodies Not Reportable 03/28/20 10:28 Sickle Cells Not Reportable 03/28/20 10:28 Target Cells Not Reportable 03/28/20 10:28 Tear Drop Cells Not Reportable 03/28/20 10:28 Ovalocytes Not Reportable 03/28/20 10:28 Stomatocytes Few 03/17/20 04:40 Helmet Cells Not Reportable 03/28/20 10:28 [place] Bodies Not Reportable 03/28/20 10:28 Chama Rings Not Reportable 03/28/20 10:28 [place] Cells Not Reportable 03/28/20 10:28 Bite Cells Not Reportable 03/28/20 10:28 Crenated Cell Not Reportable 03/28/20 10:28 Elliptocytes Not Reportable 03/28/20 10:28 Acanthocytes (Spur) Not Reportable 03/28/20 10:28 Rouleaux Not Reportable 03/28/20 10:28 Hemoglobin C Crystals Not Reportable 03/28/20 10:28 Schistocytes Not Reportable 03/28/20 10:28 Malaria parasites Not Reportable 03/28/20 10:28 [place] Bodies Not Reportable 03/28/20 10:28 Hem Pathologist Commnt No 03/28/20 10:28 PT 15.6 Sec. (12.2-14.9) H 02/24/20 09:19 INR 1.21 (0.87-1.13) H 02/24/20 09:19 APTT 25.4 Sec. (24.2-36.6) 02/24/20 09:19 D-Dimer 1311.96 ng/mlDDU (0-234) H 02/24/20 09:19 ABG pH 7.371 (7.320-7.450) 03/08/20 12:34 POC ABG pCO2 63.1 mmHg (32.0-48.0) H 03/08/20 12:34 ABG pCO2 60.1 mm Hg 03/06/20 04:34 POC ABG pO2 90.5 mmHg (83-108) 03/08/20 12:34 ABG pO2 88.6 mm Hg (80.0-90.0) 03/06/20 04:34 POC ABG HCO3 35.7 03/08/20 12:34 ABG HCO3 37.9 mmol/L (20.0-26.0) H 03/06/20 04:34 ABG O2 Saturation 97.0 % (95.0-99.0) 03/06/20 04:34 ABG O2 Content 14.3 (0.0-44) 03/06/20 04:34 POC ABG Base Excess 8.7 03/08/20 12:34 ABG Base Excess 11.4 mmol/L (-2.0-3.0) H 03/06/20 04:34 ABG Hemoglobin 10.9 (12.0-17.5) L 03/08/20 12:34 ABG Oxyhemoglobin 95.9 (94-98) 03/08/20 12:34 ABG Carboxyhemoglobin 1.7 % (0.0-5.0) 03/06/20 04:34 ABG Methemoglobin 0.3 (0.0-1.5) 03/08/20 12:34 ABG Sodium 143.6 mmol/L (136.0-145.0) 03/08/20 12:34 ABG Potassium 3.8 mmol/L (3.40-4.50) 03/08/20 12:34 ABG Chloride 102.0 mmol/L (98-107) 03/08/20 12:34 ABG Glucose 176 mg/dL (65-95) H 03/08/20 12:34 Oxyhemoglobin 94.7 % (95.0-99.0) L 03/06/20 04:34 Carboxyhemoglobin 0.7 (0.5-1.5) 03/08/20 12:34 FiO2 30 03/08/20 12:34 Sodium 133 mmol/L (137-145) L 03/30/20 14:47 Potassium 4.7 mmol/L (3.6-5.0) 03/30/20 14:47 Chloride 94.6 mmol/L (98-107) L 03/30/20 14:47 Carbon Dioxide 33 mmol/L (22-30) H 03/30/20 14:47 Anion Gap 10 mmol/L 03/30/20 14:47 BUN 16 mg/dL (9-20) 03/30/20 14:47 Creatinine < 0.2 mg/dL (0.8-1.3) L 03/30/20 14:47 Estimated GFR > 60 ml/min 03/30/20 14:47 BUN/Creatinine Ratio 80 % 03/30/20 14:47 Glucose 194 mg/dL (75-100) H 03/30/20 14:47 POC Glucose 125 mg/dL (70-105) H 04/08/20 05:40 Lactic Acid 1.00 mmol/L (0.7-2.0) 02/24/20 12:07 Calcium 9.1 mg/dL (8.4-10.2) 03/30/20 14:47 Phosphorus 3.30 mg/dL (2.5-4.5) 03/29/20 14:35 Magnesium 2.00 mg/dL (1.7-2.3) 03/29/20 14:35 Ferritin 1715.0 ng/mL (30.0-300.0) H 02/24/20 10:01 Total Bilirubin 0.40 mg/dL (0.1-1.2) 03/30/20 14:47 AST 22 units/L (5-40) 03/30/20 14:47 ALT 16 units/L (7-56) 03/30/20 14:47 Alkaline Phosphatase 78 units/L (35-129) 03/30/20 14:47 Lactate Dehydrogenase 303 units/L (91-180) H 02/24/20 09:19 Total Creatine Kinase 47 units/L (55-170) L 03/28/20 17:17 CK-MB (CK-2) 2.2 ng/mL (0.0-4.0) 03/28/20 17:17 CK-MB (CK-2) Rel Index 4.6 (0-4) H 03/28/20 17:17 Troponin T 0.090 ng/mL (0.00-0.029) H 03/28/20 17:17 C-Reactive Protein 4.70 mg/dL (0.00-1.30) H 02/28/20 11:05 NT-Pro-B Natriuret Pep 48.30 pg/mL (0-900) 02/24/20 09:19 Total Protein 7.7 g/dL (6.3-8.2) 03/30/20 14:47 Albumin 2.8 g/dL (3.9-5) L 03/30/20 14:47 Albumin/Globulin Ratio 0.6 % 03/30/20 14:47 Prealbumin 0.090 g/L (0.200-0.400) L 02/28/20 12:54 Triglycerides 34 mg/dL (2-149) 03/22/20 18:00 Cholesterol 104 mg/dL (50-199) 03/22/20 18:00 LDL Cholesterol Direct 54 mg/dL (50-130) 03/22/20 18:00 HDL Cholesterol 40 mg/dL (40-59) 03/22/20 18:00 Cholesterol/HDL Ratio 2.60 % 03/22/20 18:00 Procalcitonin < 0.05 ng/mL (<0.15) 03/28/20 17:12 Arterial Blood Glucose 176 mg/dL (65-95) H 03/08/20 12:34 Arterial Blood Ionized Calcium 4.5 mg/dL (4.6-5.3) L 03/08/20 12:34 Urine Color Yellow (Yellow) 03/28/20 11:36 Urine Turbidity Hazy (Clear) 03/28/20 11:36 Urine pH 5.0 (5.0-7.0) 03/28/20 11:36 Ur Specific [place] 1.026 (1.003-1.030) 03/28/20 11:36 Urine Protein 100 mg/dl mg/dL (Negative) 03/28/20 11:36 Urine Glucose (UA) Neg mg/dL (Negative) 03/28/20 11:36 Urine Ketones Neg mg/dL (Negative) 03/28/20 11:36 Urine Blood Neg (Negative) 03/28/20 11:36 Urine Nitrite Neg (Negative) 03/28/20 11:36 Urine Bilirubin Neg (Negative) 03/28/20 11:36 Urine Urobilinogen 4.0 mg/dL (<2.0) 03/28/20 11:36 Ur Leukocyte Esterase Mod (Negative) 03/28/20 11:36 Urine WBC (Auto) 39.0 /HPF (0.0-6.0) H 03/28/20 11:36 Urine RBC (Auto) 16.0 /HPF (0.0-6.0) 03/28/20 11:36 U Epithel Cells (Auto) < 1.0 /HPF (0-13.0) 03/08/20 08:57 Urine Bacteria (Auto) 2+ /HPF (Negative) 03/28/20 11:36 Urine Mucus 3+ /HPF 03/28/20 11:36 Urine Yeast (Budding) 2+ /HPF 03/28/20 11:36 Vancomycin Trough 8.0 ug/mL (5.0-20.0) 03/04/20 08:59 Coronavirus (PCR) Negative (Negative) 02/25/20 09:03 - Diagnostic Impressions Diagnostic Impressions: Echocardiogram 02/26/20 10:41 Transthoracic Echocardiogram Indication: Elevated Trop BP: 116/75 HR: 85 Conclusions *Global left ventricular wall motion and contractility are within normal limits. *The estimated ejection fraction is 50-55%. *Abnormal left ventricular diastolic filling is observed, consistent with impaired relaxation. *There is no pericardial effusion. Findings Left Ventricle: The left ventricular chamber size is normal. Global left ventricular wall motion and contractility are within normal limits. Global left ventricular systolic function is normal. The estimated ejection fraction is 50-55%. Abnormal left ventricular diastolic filling is observed, consistent with impaired relaxation. Left Atrium: The left atrial chamber size is normal. Right Ventricle: The right ventricular cavity size is normal. Right Atrium: The right atrial cavity size is normal. Aortic Valve: Mild aortic leaflet calcification is visualized. There is no evidence of aortic regurgitation. Mitral Valve: The mitral valve leaflets are mildly thickened. There is no evidence of mitral regurgitation. Tricuspid Valve: The tricuspid valve leaflets are normal. There is trace tricuspid regurgitation. The right ventricular systolic pressure is calculated at 29 mmHg. Pulmonic Valve: The pulmonic valve is not well visualized. Pericardium: There is no pericardial effusion. Aorta: The aorta appears normal. Venous: The inferior vena cava is dilated. There is less than 50% respiratory change in the inferior vena cava dimension. Measurements Chambers 2D Name Value Normal Range IVSd (2D) 0.97 cm (0.6 - 1.1) LVPWd (2D) 0.93 cm (0.6 - 1.1) LVIDd (2D) 4 cm (3.7 - 5.6) LVIDs (2D) 2.73 cm (2 - 3.8) LV FS (2D) 31.67 % - EF Teichholz (2D) 60.23 % - Ao root diameter (2D) 3.51 cm (2 - 3.7) Volumes/Mass Name Value Normal Range LA ESV SP 4CH (A/L) 8.43 ml - LA ESV SP 2CH (A/L) 18.89 ml - LA ESV BP (A/L) 13.02 ml - LA ESV BP (A/L) index 8.8 ml/m2 - LA ESV SP 4CH (MOD) 7.22 ml - LA ESV SP 2CH (MOD) 18.15 ml - LA ESV BP (MOD) 11.47 ml - LA ESV BP (MOD) index 7.75 ml/m2 - Diastolic/Systolic Function Name Value Normal Range MV E-wave Vmax 0.51 m/sec - MV deceleration time 180.22 msec - MV A-wave Vmax 0.62 m/sec - MV E:A ratio 0.82 ratio - Aortic Valve Name Value Normal Range AV Vmax 1.17 m/sec - AV VTI 19.71 cm - AV peak gradient 5.44 mmHg - AV mean gradient 3.38 mmHg - LVOT diameter 2.26 cm - LVOT Vmax 0.89 m/sec - LVOT VTI 13.72 cm - LVOT peak gradient 3.17 mmHg - LVOT mean gradient 1.67 mmHg - SV LVOT 55.03 ml - SHARAD (continuity Vmax) 3.06 cm2 - SHARAD (continuity VTI) 2.79 cm2 - Tricuspid Valve Name Value Normal Range TR Vmax 2.3 m/sec - TR peak gradient 21 mmHg - RAP 8 mmHg - RVSP 29 mmHg - IVC diameter 2.59 cm (1.2 - 2.3) Pulmonic Valve/Qp:Qs Name Value Normal Range PV acceleration time 68.51 msec - Drake/IV: Voiding Method Indwelling Catheter IV Catheter Type [Left Hand] Peripheral IV IV Catheter Type [Right Hand] Peripheral IV IV Catheter Type [Left Wrist] Peripheral IV IV Catheter Type [Right Peripheral IV Forearm] IV Catheter Type [Right Triple Lumen Cath Internal Jugular] IV Catheter Type [Left Forearm INT / Saline Lock ] IV Catheter Type [Right Triple Lumen Cath Femoral] IV Catheter Type [Right INT / Saline Lock Antecubital] Active Medications - Current Medications Current Medications: Generic Name Dose Route Start Last Admin Trade Name Freq PRN Reason Stop Dose Admin Acetaminophen 650 mg 02/24/20 15:13 04/07/20 20:09 Tylenol PO 650 mg Q4H PRN Administration Pain, Mild (1-3) Albuterol 2.5 mg 02/24/20 15:13 Proventil IH Q4HRT PRN Shortness Of Breath Alprazolam 0.5 mg 03/30/20 14:19 04/07/20 20:09 Xanax PO 0.5 mg Q8H PRN Administration Anxiety Lipase/Protease/Amylase 1 each 02/26/20 11:16 Pancreaze 10,500 Unit FEEDTUBE PRN PRN For Clogged Feeding Tube Baclofen 10 mg 04/03/20 12:00 04/07/20 23:24 Lioresal PO 10 mg BID ALISA Administration Bisacodyl 10 mg 03/12/20 18:00 03/15/20 17:50 Dulcolax IN 10 mg QDAY PRN Administration Bowel Movement Docusate Sodium 100 mg 04/03/20 12:00 04/07/20 23:22 Colace FEEDTUBE 100 mg BID ALISA Administration Enoxaparin Sodium 40 mg 03/20/20 22:00 04/07/20 23:23 Enoxaparin SUB-Q 40 mg QDAY@2200 ALISA Administration Protocol Glycopyrrolate 2 mg 03/26/20 08:00 04/07/20 20:09 Robinul PO 2 mg TID ALISA Administration Lansoprazole 30 mg 02/28/20 10:00 04/07/20 09:48 Prevacid Solutab FEEDTUBE 30 mg QDAY ALISA Administration Lidocaine 1 each 03/31/20 10:00 04/07/20 09:49 Lidoderm 5% TD 1 each QDAY ALISA Administration Metoprolol Tartrate 12.5 mg 02/24/20 22:00 04/07/20 23:22 Metoprolol PO 12.5 mg BID ALISA Administration Morphine Sulfate 2 mg 02/29/20 16:42 04/08/20 05:42 Morphine IV 2 mg Q4H PRN Administration Pain, Moderate (4-6) Pregabalin 150 mg 04/03/20 12:00 04/07/20 23:24 Pregabalin PO 150 mg BID ALISA Administration Scopolamine 1 each 03/03/20 14:00 04/05/20 12:19 Transderm-Scop TD 1 each Q3D ALISA Administration Senna 17.2 mg 04/03/20 22:00 04/07/20 23:22 Senokot PO 17.2 mg QHS ALISA Administration Simple Syrup 15 ml 02/26/20 11:16 Simple Syrup FEEDTUBE PRN PRN Hypoglycemia Simple Syrup 30 ml 02/26/20 11:16 Simple Syrup FEEDTUBE PRN PRN Hypoglycemia Sodium Bicarbonate 325 mg 02/26/20 11:16 Sodium Bicarbonate FEEDTUBE PRN PRN For Clogged Feeding Tube Sodium Hypochlorite 1 applic 03/31/20 13:00 04/07/20 23:24 Dakin's Half Strength TP 1 applicatio BID ALISA Administration Tamsulosin HCl 0.4 mg 03/09/20 18:00 04/07/20 09:47 Tamsulosin 0.4 Mg Cap PO 0.4 mg QDAY ALISA Administration Zolpidem Tartrate 10 mg 03/31/20 20:15 04/07/20 23:22 Ambien PO 10 mg QHS PRN Administration Sleep Nutrition/Malnutrition Assess - Dietary Evaluation Nutrition/Malnutrition Findings: Nutrition Notes Start: 02/26/20 10:40 Freq: Status: Active Protocol: Document 04/04/20 12:26 AB (Rec: 04/04/20 12:35 AB [id number]) Co-Sign 04/04/20 12:26 LM Nutrition Notes Initial or Follow up Reassessment Current Diagnosis Decubitus(Pressure Ulcer), Sepsis,Respiratory Failure Other Pertinent Diagnosis COVID-19 (-), ALS, pneumonia, Hip/buttock PU Current Diet Vital AF 1.2 at 75ml/hr (goal rate) Labs/Tests Reviewed Pertinent Medications Reviewed Height 6 ft Weight 65.8 kg [place] Body Weight (kg) 80.90 BMI 19.6 Weight Status Appropriate Subjective/Other Information F/U for TF tolerance. TF is running at goal and pt is tolerating it. Pt had BM over night, per nurse. Percent of energy/protein needs met: 100%/100% Burn Absent Trauma Absent GI Symptoms None Skin Integrity/Comment Pressure Ulcer Stage 2 Current % PO Negligible Minimum of two criteria Yes Body Fat Depletion Mild depletion (non-severe) Muscle Mass Mild Depletion (non-severe) Reduced [place] Strength Measurably Reduced (severe) #3 Nutrition Diagnosis Malnutrition Diagnosis Progress(for reassessment Continues documentation) #2 Nutrition Diagnosis Inadequate oral intake Diagnosis Progress(for reassessment Continues documentation) #1 Nutrition Diagnosis Increased nutrient needs ( specify in comment below) Diagnosis Progress(for reassessment Continues documentation) Is patient on ventilator? Yes Is Patient Ambulatory and/or Out of Bed No REE-([facility]-confined to bed) [phone] Kcal/Kg value to use for calculation 35 Approximate Energy Requirements Using 2303 kcal/Kg Calculation Used for Recommendations Kcal/kg Additional Notes Protein needs: 88-147 g (1.2-2 g/ kg ABW) Fluid: 1ml/kcal Nutrition Intervention Change Diet Order: Continue TF Nutrition Support: Vital AF 1.2 at 75ml/hr. Flush 200ml q4h For hyponatremia, flush 150 mL q4h Kcal 2,160 Protein (gm) 135 Fluid (mL) 1,460 Add Supplement/Snack (indicate name/kcal Will BID /protein ) Provides kCal: 190 Provides Protein (gm) 5 Goal #1 Meet at least 80% of energy and protein needs via TF Goal #2 Wound healing Anticipated Discharge Needs: Unable to determine at this time Follow-Up By: 04/11/20 Additional Comments F/U for TF tolerance
[2020-04-08] MEDS: GLYCOPYRROLATE 1 MG TAB PO SCH ×3 (09:57→23:00)
[2020-04-08] MEDS: LANSOPRAZOLE 30 MG SOLUTAB FEEDTUBE SCH (09:57)
[2020-04-08] MEDS: ALPRAZolam 0.5 MG TAB PO PRN ×2 (09:57→22:59)
[2020-04-08] MEDS: METOPROLOL TARTRATE 25 MG TAB PO SCH ×2 (09:57→23:01)
[2020-04-08] MEDS: DOCUSATE SODIUM 100 MG/10 ML ORAL LIQD FEEDTUBE SCH ×2 (09:57→22:59)
[2020-04-08] MEDS: BACLOFEN 10 MG TAB PO SCH ×2 (09:57→23:00)
[2020-04-08] MEDS: PREGABALIN 75 MG CAP PO SCH ×2 (09:57→23:00)
[2020-04-08] MEDS: ACETAMINOPHEN 325 MG TAB PO PRN ×2 (09:58→16:00)
[2020-04-08] MEDS: TAMSULOSIN 0.4 MG CAP PO SCH (09:58)
[2020-04-08] MEDS: SCOPOLAMINE TRANSDERMAL PATCH 72 HR TD SCH (09:59)
[2020-04-08] MEDS: LIDOCAINE 5% 1 EACH PATCH TD SCH (09:59)
[2020-04-08] MEDS: SODIUM HYPOCHLORITE, DAKIN'S 1/2 STRENGTH (0.25%) 473 ML TOPICAL SOLN TP SCH (09:59)
[2020-04-08] MEDS ORDERED: DEXTROSE 5% IN WATER 1,000 ML IV SCH (18:45)
--- NOTE | 2020-04-08 21:53 | Progress Note ---
Assessment and Plan atient awake. weak. Resting on assist control mechanical ventilation, rate 10, Tidal volume 400, FIO2 25%, PEEP 6 and O2 saturation running 100%. Patient afebrile and has leukocytosis. Chest xray done 03/28/20 reported no acute findings. Patient guevara virus negative. I spent critical care time of 35 minutes, review the chart, examining the patient,Review chest xray, labs, talking to the nursing staff and respiratory therapist and work out plan of tratment in this critically ill patient. - Patient Problems (1) Acute on chronic respiratory failure with hypoxia and hypercapnia Current Visit: Yes Status: Acute Plan to address problem: Patient is on assist control mechanical ventilation, rate 10, tidal volume 400, FIO2 25%, PEEP 6. Albuterol inhaler 2 puffs po qid. Continue S/C Lovenox. Continue prevacid. (2) Bleeding from wound Current Visit: Yes Status: Acute Plan to address problem: Management primary care , surgery and wound care. (3) Elevated d-dimer Current Visit: Yes Status: Acute Plan to address problem: Patients venous doppler studies of legs, CTA chest reported VTE. Patient is on S/C Lovenox 40 mg qd. (4) Elevated troponin Current Visit: Yes Status: Acute Plan to address problem: Management as per primary care and cardiology (5) NSTEMI (non-ST elevated myocardial infarction) Current Visit: Yes Status: Acute Plan to address problem: Management as per cardiology. (6) Pneumonia Current Visit: Yes Status: Acute Qualifiers: Laterality: bilateral Plan to address problem: Patient treated with ceftriaxone, zosyn and zithromax. Patient afebrile. Repeat chest xray 03/28/20 reported no acute fingings. Subjective Date of service: 04/08/20 Principal diagnosis: Ac on Ch Hypercapnic & hypoxemic Resp Failure; Severe Sepsis; Jamar PNA; ALS Interval history: Patient awake. weak. Resting on assist control mechanical ventilation, rate 10, Tidal volume 400, FIO2 25%, PEEP 6 and O2 saturation running 100%. Patient afebrile and has leukocytosis. Chest xray done 03/28/20 reported no acute findings. Patient guevara virus negative. Objective Vital Signs - 12hr 04/08/20 04/08/20 04/08/20 09:57 09:58 10:00 Temperature Pulse Rate 122 H 120 H Pulse Rate [ From Monitor] Respiratory 28 H 26 H Rate Blood Pressure 103/76 105/73 O2 Sat by Pulse 97 Oximetry O2 Sat by Pulse Oximetry [ Assessment] 04/08/20 04/08/20 04/08/20 11:00 11:23 12:00 Temperature 98.7 F Pulse Rate 100 H 107 H 116 H Pulse Rate [ 116 H From Monitor] Respiratory 15 23 24 Rate Blood Pressure 110/76 110/76 109/76 O2 Sat by Pulse 97 98 99 Oximetry O2 Sat by Pulse Oximetry [ Assessment] 04/08/20 04/08/20 04/08/20 13:00 14:00 15:00 Temperature Pulse Rate 109 H 112 H 113 H Pulse Rate [ From Monitor] Respiratory 26 H 30 H 31 H Rate Blood Pressure 114/80 113/74 119/81 O2 Sat by Pulse 97 97 94 Oximetry O2 Sat by Pulse Oximetry [ Assessment] 04/08/20 04/08/20 04/08/20 15:58 15:59 16:00 Temperature 98.6 F Pulse Rate 115 H 124 H Pulse Rate [ 115 H From Monitor] Respiratory 33 H 26 H 26 H Rate Blood Pressure 119/81 124/75 O2 Sat by Pulse 96 97 Oximetry O2 Sat by Pulse Oximetry [ Assessment] 04/08/20 04/08/20 04/08/20 16:09 17:00 18:00 Temperature Pulse Rate 103 H 112 H Pulse Rate [ From Monitor] Respiratory 12 14 Rate Blood Pressure 105/72 107/77 O2 Sat by Pulse 93 Oximetry O2 Sat by Pulse 100 Oximetry [ Assessment] 04/08/20 04/08/20 04/08/20 19:00 19:36 20:00 Temperature 98.7 F Pulse Rate 120 H 116 H Pulse Rate [ From Monitor] Respiratory 16 Rate Blood Pressure 103/71 O2 Sat by Pulse 98 Oximetry O2 Sat by Pulse Oximetry [ Assessment] 04/08/20 21:10 Temperature Pulse Rate 127 H Pulse Rate [ From Monitor] Respiratory Rate Blood Pressure 102/70 O2 Sat by Pulse 97 Oximetry O2 Sat by Pulse 97 Oximetry [ Assessment] Constitutional: no acute distress, alert, other (thin middle aged male with normal respiratory effort at rest on MVS) Eyes: non-icteric ENT: oropharynx moist, other (S/P Tracheostomy) Neck: supple, no lymphadenopathy, no JVD Effort: mildly labored Ascultation: Bilateral: diminished breath sounds, wheezes, rhonchi Percussion: Bilateral: not dull Cardiovascular: regular rate and rhythm, other (S1,S2, no murmurs) Gastrointestinal: normoactive bowel sounds, soft, non-tender, non-distended, oth er (+ distended but non tender suprapubis) Integumentary: normal, decubitus ulcer (sacral / gluteal) Extremities: no cyanosis, no edema, pulses normal, other (atrophic looking limbs) Neurologic: pupils equal and round, other (motor strength in extremities 1-2/5, awake, alert, mouths words to make needs known) Psychiatric: depressed CBC and BMP: 03/30/20 14:47 03/30/20 14:47 ABG, PT/INR, D-dimer: ABG ABG pH 7.371 (7.320-7.450) 03/08/20 12:34 POC ABG pCO2 63.1 mmHg (32.0-48.0) H 03/08/20 12:34 ABG pCO2 60.1 mm Hg 03/06/20 04:34 POC ABG pO2 90.5 mmHg (83-108) 03/08/20 12:34 ABG pO2 88.6 mm Hg (80.0-90.0) 03/06/20 04:34 POC ABG HCO3 35.7 03/08/20 12:34 ABG O2 Saturation 97.0 % (95.0-99.0) 03/06/20 04:34 PT/INR, D-dimer PT 15.6 Sec. (12.2-14.9) H 02/24/20 09:19 INR 1.21 (0.87-1.13) H 02/24/20 09:19 D-Dimer 1311.96 ng/mlDDU (0-234) H 02/24/20 09:19 Abnormal lab findings: Abnormal Labs 02/24/20 02/24/20 02/24/20 09:19 09:19 09:19 WBC 20.2 H RBC 5.05 H Hgb Hct MCV MCH RDW 15.3 H Plt Count Lymph % (Auto) Lymph # (Auto) [place] # (Auto) Seg Neutrophils % Seg Neuts % (Manual) 86.0 H Lymphocytes % (Manual) 1.0 L Monocytes % (Manual) Basophils % (Manual) Seg Neutrophils # Seg Neutrophils # Man 17.4 H Lymphocytes # (Manual) 0.2 L Monocytes # (Manual) Eosinophils # (Manual) Basophils # (Manual) PT 15.6 H INR 1.21 H D-Dimer 1311.96 H ABG pH POC ABG pCO2 POC ABG pO2 ABG pO2 ABG HCO3 ABG O2 Saturation ABG Base Excess ABG Hemoglobin ABG Oxyhemoglobin ABG Potassium ABG Glucose Oxyhemoglobin Carboxyhemoglobin Sodium 135 L Potassium 3.2 L Chloride 92.2 L Carbon Dioxide BUN 6 L Creatinine < 0.2 L Glucose 124 H POC Glucose Calcium Ferritin Total Bilirubin 2.30 H Alkaline Phosphatase 132 H Lactate Dehydrogenase Total Creatine Kinase CK-MB (CK-2) Rel Index Troponin T 0.080 H C-Reactive Protein Total Protein Albumin 3.6 L Prealbumin LDL Cholesterol Direct 41 L Arterial Blood Glucose Arterial Blood Ionized Calcium Urine WBC (Auto) 02/24/20 02/24/20 02/24/20 09:19 09:58 10:01 WBC RBC Hgb Hct MCV MCH RDW Plt Count Lymph % (Auto) Lymph # (Auto) [place] # (Auto) Seg Neutrophils % Seg Neuts % (Manual) Lymphocytes % (Manual) Monocytes % (Manual) Basophils % (Manual) Seg Neutrophils # Seg Neutrophils # Man Lymphocytes # (Manual) Monocytes # (Manual) Eosinophils # (Manual) Basophils # (Manual) PT INR D-Dimer ABG pH 7.176 L* POC ABG pCO2 POC ABG pO2 ABG pO2 91.2 H ABG HCO3 ABG O2 Saturation ABG Base Excess -4.6 L ABG Hemoglobin ABG Oxyhemoglobin ABG Potassium ABG Glucose Oxyhemoglobin 92.6 L Carboxyhemoglobin Sodium Potassium Chloride Carbon Dioxide BUN Creatinine Glucose POC Glucose Calcium Ferritin 1715.0 H Total Bilirubin Alkaline Phosphatase Lactate Dehydrogenase 303 H Total Creatine Kinase CK-MB (CK-2) Rel Index Troponin T C-Reactive Protein 26.10 H Total Protein Albumin Prealbumin LDL Cholesterol Direct Arterial Blood Glucose Arterial Blood Ionized Calcium Urine WBC (Auto) 02/24/20 02/24/20 02/24/20 11:52 13:45 19:35 WBC RBC Hgb Hct MCV MCH RDW Plt Count Lymph % (Auto) Lymph # (Auto) [place] # (Auto) Seg Neutrophils % Seg Neuts % (Manual) Lymphocytes % (Manual) Monocytes % (Manual) Basophils % (Manual) Seg Neutrophils # Seg Neutrophils # Man Lymphocytes # (Manual) Monocytes # (Manual) Eosinophils # (Manual) Basophils # (Manual) PT INR D-Dimer ABG pH 7.051 L* 7.300 L POC ABG pCO2 POC ABG pO2 ABG pO2 94.7 H 75.1 L ABG HCO3 18.0 L ABG O2 Saturation 93.5 L ABG Base Excess -6.8 L -7.8 L ABG Hemoglobin 13.2 L 11.9 L ABG Oxyhemoglobin ABG Potassium ABG Glucose Oxyhemoglobin 91.0 L 92.7 L Carboxyhemoglobin Sodium Potassium Chloride Carbon Dioxide BUN Creatinine Glucose POC Glucose Calcium Ferritin Total Bilirubin Alkaline Phosphatase Lactate Dehydrogenase Total Creatine Kinase CK-MB (CK-2) Rel Index Troponin T 0.034 H D C-Reactive Protein Total Protein Albumin Prealbumin LDL Cholesterol Direct Arterial Blood Glucose Arterial Blood Ionized Calcium Urine WBC (Auto) 02/25/20 02/25/20 02/25/20 04:00 04:00 12:26 WBC 22.9 H RBC Hgb Hct MCV 83 L MCH 27 L RDW Plt Count 468 H Lymph % (Auto) Lymph # (Auto) [place] # (Auto) Seg Neutrophils % Seg Neuts % (Manual) 89.0 H Lymphocytes % (Manual) 7.0 L Monocytes % (Manual) Basophils % (Manual) Seg Neutrophils # Seg Neutrophils # Man 20.4 H Lymphocytes # (Manual) Monocytes # (Manual) Eosinophils # (Manual) Basophils # (Manual) PT INR D-Dimer ABG pH POC ABG pCO2 POC ABG pO2 ABG pO2 ABG HCO3 ABG O2 Saturation ABG Base Excess ABG Hemoglobin ABG Oxyhemoglobin ABG Potassium 2.6 L ABG Glucose 142 H Oxyhemoglobin Carboxyhemoglobin Sodium Potassium 3.2 L Chloride Carbon Dioxide 18 L BUN Creatinine 0.2 L Glucose 114 H POC Glucose Calcium Ferritin Total Bilirubin Alkaline Phosphatase Lactate Dehydrogenase Total Creatine Kinase CK-MB (CK-2) Rel Index Troponin T C-Reactive Protein Total Protein Albumin 3.5 L Prealbumin LDL Cholesterol Direct Arterial Blood Glucose 142 H Arterial Blood Ionized Calcium Urine WBC (Auto) 02/26/20 02/26/20 02/26/20 15:58 17:00 23:43 WBC RBC Hgb Hct MCV MCH RDW Plt Count Lymph % (Auto) Lymph # (Auto) [place] # (Auto) Seg Neutrophils % Seg Neuts % (Manual) Lymphocytes % (Manual) Monocytes % (Manual) Basophils % (Manual) Seg Neutrophils # Seg Neutrophils # Man Lymphocytes # (Manual) Monocytes # (Manual) Eosinophils # (Manual) Basophils # (Manual) PT INR D-Dimer ABG pH 7.502 H POC ABG pCO2 POC ABG pO2 213.6 H ABG pO2 ABG HCO3 ABG O2 Saturation ABG Base Excess ABG Hemoglobin ABG Oxyhemoglobin 99.2 H ABG Potassium 2.9 L ABG Glucose 160 H Oxyhemoglobin Carboxyhemoglobin 0.4 L Sodium Potassium Chloride Carbon Dioxide BUN Creatinine Glucose POC Glucose 189 H 120 H Calcium Ferritin Total Bilirubin Alkaline Phosphatase Lactate Dehydrogenase Total Creatine Kinase CK-MB (CK-2) Rel Index Troponin T C-Reactive Protein Total Protein Albumin Prealbumin LDL Cholesterol Direct Arterial Blood Glucose 160 H Arterial Blood Ionized Calcium 4.5 L Urine WBC (Auto) 02/27/20 02/27/20 02/27/20 05:00 07:04 17:45 WBC RBC Hgb Hct MCV MCH RDW Plt Count Lymph % (Auto) Lymph # (Auto) [place] # (Auto) Seg Neutrophils % Seg Neuts % (Manual) Lymphocytes % (Manual) Monocytes % (Manual) Basophils % (Manual) Seg Neutrophils # Seg Neutrophils # Man Lymphocytes # (Manual) Monocytes # (Manual) Eosinophils # (Manual) Basophils # (Manual) PT INR D-Dimer ABG pH 7.524 H POC ABG pCO2 POC ABG pO2 ABG pO2 ABG HCO3 ABG O2 Saturation ABG Base Excess ABG Hemoglobin ABG Oxyhemoglobin ABG Potassium 3.0 L ABG Glucose 143 H Oxyhemoglobin Carboxyhemoglobin Sodium Potassium Chloride Carbon Dioxide BUN Creatinine Glucose POC Glucose 154 H 175 H Calcium Ferritin Total Bilirubin Alkaline Phosphatase Lactate Dehydrogenase Total Creatine Kinase CK-MB (CK-2) Rel Index Troponin T C-Reactive Protein Total Protein Albumin Prealbumin LDL Cholesterol Direct Arterial Blood Glucose 143 H Arterial Blood Ionized Calcium Urine WBC (Auto) 02/27/20 02/28/20 02/28/20 Unknown 00:21 04:15 WBC 18.7 H RBC Hgb Hct MCV MCH RDW Plt Count Lymph % (Auto) 8.7 L Lymph # (Auto) [place] # (Auto) 1.2 H Seg Neutrophils % 84.6 H Seg Neuts % (Manual) Lymphocytes % (Manual) Monocytes % (Manual) Basophils % (Manual) Seg Neutrophils # 15.9 H Seg Neutrophils # Man Lymphocytes # (Manual) Monocytes # (Manual) Eosinophils # (Manual) Basophils # (Manual) PT INR D-Dimer ABG pH POC ABG pCO2 POC ABG pO2 ABG pO2 ABG HCO3 ABG O2 Saturation ABG Base Excess ABG Hemoglobin ABG Oxyhemoglobin ABG Potassium ABG Glucose Oxyhemoglobin Carboxyhemoglobin Sodium Potassium 2.9 L* Chloride Carbon Dioxide 33 H D BUN Creatinine < 0.2 L Glucose 157 H POC Glucose 134 H Calcium Ferritin Total Bilirubin Alkaline Phosphatase Lactate Dehydrogenase Total Creatine Kinase CK-MB (CK-2) Rel Index Troponin T C-Reactive Protein Total Protein Albumin Prealbumin LDL Cholesterol Direct Arterial Blood Glucose Arterial Blood Ionized Calcium Urine WBC (Auto) 02/28/20 02/28/20 02/28/20 04:15 05:16 05:39 WBC RBC Hgb Hct MCV MCH RDW Plt Count Lymph % (Auto) Lymph # (Auto) [place] # (Auto) Seg Neutrophils % Seg Neuts % (Manual) Lymphocytes % (Manual) Monocytes % (Manual) Basophils % (Manual) Seg Neutrophils # Seg Neutrophils # Man Lymphocytes # (Manual) Monocytes # (Manual) Eosinophils # (Manual) Basophils # (Manual) PT INR D-Dimer ABG pH POC ABG pCO2 POC ABG pO2 ABG pO2 142.9 H ABG HCO3 34.1 H ABG O2 Saturation ABG Base Excess 8.3 H ABG Hemoglobin ABG Oxyhemoglobin ABG Potassium ABG Glucose Oxyhemoglobin Carboxyhemoglobin Sodium 151 H Potassium Chloride Carbon Dioxide 32 H BUN Creatinine 0.2 L Glucose 167 H POC Glucose 138 H Calcium Ferritin Total Bilirubin Alkaline Phosphatase Lactate Dehydrogenase Total Creatine Kinase CK-MB (CK-2) Rel Index Troponin T C-Reactive Protein Total Protein Albumin Prealbumin LDL Cholesterol Direct Arterial Blood Glucose Arterial Blood Ionized Calcium Urine WBC (Auto) 02/28/20 02/28/20 02/28/20 11:05 11:33 12:54 WBC RBC Hgb Hct MCV MCH RDW Plt Count Lymph % (Auto) Lymph # (Auto) [place] # (Auto) Seg Neutrophils % Seg Neuts % (Manual) Lymphocytes % (Manual) Monocytes % (Manual) Basophils % (Manual) Seg Neutrophils # Seg Neutrophils # Man Lymphocytes # (Manual) Monocytes # (Manual) Eosinophils # (Manual) Basophils # (Manual) PT INR D-Dimer ABG pH POC ABG pCO2 POC ABG pO2 ABG pO2 ABG HCO3 ABG O2 Saturation ABG Base Excess ABG Hemoglobin ABG Oxyhemoglobin ABG Potassium ABG Glucose Oxyhemoglobin Carboxyhemoglobin Sodium Potassium Chloride Carbon Dioxide BUN Creatinine Glucose POC Glucose 160 H Calcium Ferritin Total Bilirubin Alkaline Phosphatase Lactate Dehydrogenase Total Creatine Kinase CK-MB (CK-2) Rel Index Troponin T C-Reactive Protein 4.70 H Total Protein Albumin Prealbumin 0.090 L LDL Cholesterol Direct Arterial Blood Glucose Arterial Blood Ionized Calcium Urine WBC (Auto) 02/28/20 02/29/20 02/29/20 17:34 00:44 04:05 WBC 19.6 H RBC Hgb Hct MCV MCH 27 L RDW 15.4 H Plt Count Lymph % (Auto) Lymph # (Auto) [place] # (Auto) Seg Neutrophils % Seg Neuts % (Manual) 86.0 H Lymphocytes % (Manual) 7.0 L Monocytes % (Manual) Basophils % (Manual) Seg Neutrophils # Seg Neutrophils # Man 16.9 H Lymphocytes # (Manual) Monocytes # (Manual) 1.2 H Eosinophils # (Manual) Basophils # (Manual) PT INR D-Dimer ABG pH POC ABG pCO2 POC ABG pO2 ABG pO2 ABG HCO3 ABG O2 Saturation ABG Base Excess ABG Hemoglobin ABG Oxyhemoglobin ABG Potassium ABG Glucose Oxyhemoglobin Carboxyhemoglobin Sodium Potassium Chloride Carbon Dioxide BUN Creatinine Glucose POC Glucose 136 H 156 H Calcium Ferritin Total Bilirubin Alkaline Phosphatase Lactate Dehydrogenase Total Creatine Kinase CK-MB (CK-2) Rel Index Troponin T C-Reactive Protein Total Protein Albumin Prealbumin LDL Cholesterol Direct Arterial Blood Glucose Arterial Blood Ionized Calcium Urine WBC (Auto) 02/29/20 02/29/20 02/29/20 04:05 05:14 05:33 WBC RBC Hgb Hct MCV MCH RDW Plt Count Lymph % (Auto) Lymph # (Auto) [place] # (Auto) Seg Neutrophils % Seg Neuts % (Manual) Lymphocytes % (Manual) Monocytes % (Manual) Basophils % (Manual) Seg Neutrophils # Seg Neutrophils # Man Lymphocytes # (Manual) Monocytes # (Manual) Eosinophils # (Manual) Basophils # (Manual) PT INR D-Dimer ABG pH POC ABG pCO2 54.3 H POC ABG pO2 124.8 H ABG pO2 ABG HCO3 ABG O2 Saturation ABG Base Excess ABG Hemoglobin ABG Oxyhemoglobin ABG Potassium ABG Glucose 185 H Oxyhemoglobin Carboxyhemoglobin Sodium 148 H Potassium Chloride Carbon Dioxide 33 H BUN Creatinine < 0.2 L Glucose 173 H POC Glucose 152 H Calcium Ferritin Total Bilirubin Alkaline Phosphatase Lactate Dehydrogenase Total Creatine Kinase CK-MB (CK-2) Rel Index Troponin T C-Reactive Protein Total Protein Albumin Prealbumin LDL Cholesterol Direct Arterial Blood Glucose 185 H Arterial Blood Ionized Calcium Urine WBC (Auto) 03/01/20 03/01/20 03/01/20 00:00 03:45 04:33 WBC 23.1 H RBC Hgb Hct MCV MCH 27 L RDW 15.3 H Plt Count Lymph % (Auto) Lymph # (Auto) [place] # (Auto) Seg Neutrophils % Seg Neuts % (Manual) 92.0 H Lymphocytes % (Manual) 6.0 L Monocytes % (Manual) Basophils % (Manual) Seg Neutrophils # Seg Neutrophils # Man 21.3 H Lymphocytes # (Manual) Monocytes # (Manual) Eosinophils # (Manual) 0.5 H Basophils # (Manual) PT INR D-Dimer ABG pH 7.492 H POC ABG pCO2 POC ABG pO2 ABG pO2 157.1 H ABG HCO3 32.3 H ABG O2 Saturation ABG Base Excess 8.1 H ABG Hemoglobin 13.2 L ABG Oxyhemoglobin ABG Potassium ABG Glucose Oxyhemoglobin Carboxyhemoglobin Sodium Potassium Chloride Carbon Dioxide BUN Creatinine Glucose POC Glucose 109 H Calcium Ferritin Total Bilirubin Alkaline Phosphatase Lactate Dehydrogenase Total Creatine Kinase CK-MB (CK-2) Rel Index Troponin T C-Reactive Protein Total Protein Albumin Prealbumin LDL Cholesterol Direct Arterial Blood Glucose Arterial Blood Ionized Calcium Urine WBC (Auto) 03/01/20 03/01/20 03/01/20 04:33 05:29 12:32 WBC RBC Hgb Hct MCV MCH RDW Plt Count Lymph % (Auto) Lymph # (Auto) [place] # (Auto) Seg Neutrophils % Seg Neuts % (Manual) Lymphocytes % (Manual) Monocytes % (Manual) Basophils % (Manual) Seg Neutrophils # Seg Neutrophils # Man Lymphocytes # (Manual) Monocytes # (Manual) Eosinophils # (Manual) Basophils # (Manual) PT INR D-Dimer ABG pH POC ABG pCO2 POC ABG pO2 ABG pO2 ABG HCO3 ABG O2 Saturation ABG Base Excess ABG Hemoglobin ABG Oxyhemoglobin ABG Potassium ABG Glucose Oxyhemoglobin Carboxyhemoglobin Sodium 146 H Potassium Chloride Carbon Dioxide 32 H BUN Creatinine < 0.2 L Glucose 120 H POC Glucose 120 H 128 H Calcium Ferritin Total Bilirubin Alkaline Phosphatase Lactate Dehydrogenase Total Creatine Kinase CK-MB (CK-2) Rel Index Troponin T C-Reactive Protein Total Protein Albumin Prealbumin LDL Cholesterol Direct Arterial Blood Glucose Arterial Blood Ionized Calcium Urine WBC (Auto) 03/01/20 03/01/20 03/02/20 17:38 23:46 06:13 WBC RBC Hgb Hct MCV MCH RDW Plt Count Lymph % (Auto) Lymph # (Auto) [place] # (Auto) Seg Neutrophils % Seg Neuts % (Manual) Lymphocytes % (Manual) Monocytes % (Manual) Basophils % (Manual) Seg Neutrophils # Seg Neutrophils # Man Lymphocytes # (Manual) Monocytes # (Manual) Eosinophils # (Manual) Basophils # (Manual) PT INR D-Dimer ABG pH POC ABG pCO2 POC ABG pO2 ABG pO2 ABG HCO3 ABG O2 Saturation ABG Base Excess ABG Hemoglobin ABG Oxyhemoglobin ABG Potassium ABG Glucose Oxyhemoglobin Carboxyhemoglobin Sodium Potassium Chloride Carbon Dioxide BUN Creatinine Glucose POC Glucose 114 H 121 H 120 H Calcium Ferritin Total Bilirubin Alkaline Phosphatase Lactate Dehydrogenase Total Creatine Kinase CK-MB (CK-2) Rel Index Troponin T C-Reactive Protein Total Protein Albumin Prealbumin LDL Cholesterol Direct Arterial Blood Glucose Arterial Blood Ionized Calcium Urine WBC (Auto) 03/02/20 03/02/20 03/03/20 09:47 09:47 10:21 WBC 23.6 H RBC Hgb Hct MCV MCH RDW 15.3 H Plt Count 494 H Lymph % (Auto) Lymph # (Auto) [place] # (Auto) Seg Neutrophils % Seg Neuts % (Manual) 85.0 H Lymphocytes % (Manual) 6.0 L Monocytes % (Manual) Basophils % (Manual) Seg Neutrophils # Seg Neutrophils # Man 20.1 H Lymphocytes # (Manual) Monocytes # (Manual) 1.7 H Eosinophils # (Manual) Basophils # (Manual) PT INR D-Dimer ABG pH POC ABG pCO2 POC ABG pO2 ABG pO2 ABG HCO3 ABG O2 Saturation ABG Base Excess ABG Hemoglobin ABG Oxyhemoglobin ABG Potassium 3.3 L ABG Glucose 158 H Oxyhemoglobin Carboxyhemoglobin Sodium Potassium Chloride Carbon Dioxide BUN Creatinine < 0.2 L Glucose 177 H POC Glucose Calcium Ferritin Total Bilirubin Alkaline Phosphatase Lactate Dehydrogenase Total Creatine Kinase CK-MB (CK-2) Rel Index Troponin T C-Reactive Protein Total Protein Albumin Prealbumin LDL Cholesterol Direct Arterial Blood Glucose 158 H Arterial Blood Ionized Calcium Urine WBC (Auto) 03/03/20 03/04/20 03/04/20 21:30 00:00 12:23 WBC RBC Hgb Hct MCV MCH RDW Plt Count Lymph % (Auto) Lymph # (Auto) [place] # (Auto) Seg Neutrophils % Seg Neuts % (Manual) Lymphocytes % (Manual) Monocytes % (Manual) Basophils % (Manual) Seg Neutrophils # Seg Neutrophils # Man Lymphocytes # (Manual) Monocytes # (Manual) Eosinophils # (Manual) Basophils # (Manual) PT INR D-Dimer ABG pH 7.328 L POC ABG pCO2 POC ABG pO2 ABG pO2 68.4 L ABG HCO3 35.0 H ABG O2 Saturation 93.9 L ABG Base Excess 6.8 H ABG Hemoglobin 12.7 L ABG Oxyhemoglobin ABG Potassium ABG Glucose Oxyhemoglobin 91.9 L Carboxyhemoglobin Sodium Potassium Chloride Carbon Dioxide BUN Creatinine Glucose POC Glucose 187 H 163 H Calcium Ferritin Total Bilirubin Alkaline Phosphatase Lactate Dehydrogenase Total Creatine Kinase CK-MB (CK-2) Rel Index Troponin T C-Reactive Protein Total Protein Albumin Prealbumin LDL Cholesterol Direct Arterial Blood Glucose Arterial Blood Ionized Calcium Urine WBC (Auto) 03/04/20 03/04/20 03/05/20 18:15 21:30 06:02 WBC RBC Hgb Hct MCV MCH RDW Plt Count Lymph % (Auto) Lymph # (Auto) [place] # (Auto) Seg Neutrophils % Seg Neuts % (Manual) Lymphocytes % (Manual) Monocytes % (Manual) Basophils % (Manual) Seg Neutrophils # Seg Neutrophils # Man Lymphocytes # (Manual) Monocytes # (Manual) Eosinophils # (Manual) Basophils # (Manual) PT INR D-Dimer ABG pH 7.297 L POC ABG pCO2 POC ABG pO2 ABG pO2 ABG HCO3 41.0 H ABG O2 Saturation ABG Base Excess 11.0 H ABG Hemoglobin 13.1 L ABG Oxyhemoglobin ABG Potassium ABG Glucose Oxyhemoglobin 94.5 L Carboxyhemoglobin Sodium Potassium Chloride Carbon Dioxide BUN Creatinine Glucose POC Glucose 192 H 127 H Calcium Ferritin Total Bilirubin Alkaline Phosphatase Lactate Dehydrogenase Total Creatine Kinase CK-MB (CK-2) Rel Index Troponin T C-Reactive Protein Total Protein Albumin Prealbumin LDL Cholesterol Direct Arterial Blood Glucose Arterial Blood Ionized Calcium Urine WBC (Auto) 03/05/20 03/05/20 03/06/20 12:09 16:42 00:24 WBC RBC Hgb Hct MCV MCH RDW Plt Count Lymph % (Auto) Lymph # (Auto) [place] # (Auto) Seg Neutrophils % Seg Neuts % (Manual) Lymphocytes % (Manual) Monocytes % (Manual) Basophils % (Manual) Seg Neutrophils # Seg Neutrophils # Man Lymphocytes # (Manual) Monocytes # (Manual) Eosinophils # (Manual) Basophils # (Manual) PT INR D-Dimer ABG pH POC ABG pCO2 POC ABG pO2 ABG pO2 ABG HCO3 ABG O2 Saturation ABG Base Excess ABG Hemoglobin ABG Oxyhemoglobin ABG Potassium ABG Glucose Oxyhemoglobin Carboxyhemoglobin Sodium Potassium Chloride Carbon Dioxide BUN Creatinine Glucose POC Glucose 147 H 114 H 134 H Calcium Ferritin Total Bilirubin Alkaline Phosphatase Lactate Dehydrogenase Total Creatine Kinase CK-MB (CK-2) Rel Index Troponin T C-Reactive Protein Total Protein Albumin Prealbumin LDL Cholesterol Direct Arterial Blood Glucose Arterial Blood Ionized Calcium Urine WBC (Auto) 03/06/20 03/06/20 03/06/20 04:34 05:53 06:08 WBC 25.4 H RBC Hgb 10.5 L Hct 32.7 L MCV MCH 27 L RDW 15.3 H Plt Count 634 H Lymph % (Auto) Lymph # (Auto) [place] # (Auto) Seg Neutrophils % Seg Neuts % (Manual) 88.0 H Lymphocytes % (Manual) 2.0 L Monocytes % (Manual) 8.0 H Basophils % (Manual) Seg Neutrophils # Seg Neutrophils # Man 22.4 H Lymphocytes # (Manual) 0.5 L Monocytes # (Manual) 2.0 H Eosinophils # (Manual) Basophils # (Manual) PT INR D-Dimer ABG pH POC ABG pCO2 POC ABG pO2 ABG pO2 ABG HCO3 37.9 H ABG O2 Saturation ABG Base Excess 11.4 H ABG Hemoglobin 10.6 L ABG Oxyhemoglobin ABG Potassium ABG Glucose Oxyhemoglobin 94.7 L Carboxyhemoglobin Sodium Potassium Chloride Carbon Dioxide BUN Creatinine Glucose POC Glucose 135 H Calcium Ferritin Total Bilirubin Alkaline Phosphatase Lactate Dehydrogenase Total Creatine Kinase CK-MB (CK-2) Rel Index Troponin T C-Reactive Protein Total Protein Albumin Prealbumin LDL Cholesterol Direct Arterial Blood Glucose Arterial Blood Ionized Calcium Urine WBC (Auto) 03/06/20 03/06/20 03/06/20 06:08 12:19 19:10 WBC RBC Hgb Hct MCV MCH RDW Plt Count Lymph % (Auto) Lymph # (Auto) [place] # (Auto) Seg Neutrophils % Seg Neuts % (Manual) Lymphocytes % (Manual) Monocytes % (Manual) Basophils % (Manual) Seg Neutrophils # Seg Neutrophils # Man Lymphocytes # (Manual) Monocytes # (Manual) Eosinophils # (Manual) Basophils # (Manual) PT INR D-Dimer ABG pH POC ABG pCO2 POC ABG pO2 ABG pO2 ABG HCO3 ABG O2 Saturation ABG Base Excess ABG Hemoglobin ABG Oxyhemoglobin ABG Potassium ABG Glucose Oxyhemoglobin Carboxyhemoglobin Sodium 150 H D Potassium Chloride Carbon Dioxide 39 H D BUN 23 H Creatinine < 0.2 L Glucose 144 H POC Glucose 169 H 152 H Calcium Ferritin Total Bilirubin Alkaline Phosphatase Lactate Dehydrogenase Total Creatine Kinase CK-MB (CK-2) Rel Index Troponin T C-Reactive Protein Total Protein Albumin 3.3 L Prealbumin LDL Cholesterol Direct Arterial Blood Glucose Arterial Blood Ionized Calcium Urine WBC (Auto) 03/06/20 03/07/20 03/07/20 23:58 04:25 04:25 WBC 22.1 H RBC Hgb 10.9 L Hct 32.9 L MCV MCH RDW 15.5 H Plt Count 739 H Lymph % (Auto) 7.8 L Lymph # (Auto) [place] # (Auto) 1.3 H Seg Neutrophils % 85.5 H Seg Neuts % (Manual) Lymphocytes % (Manual) Monocytes % (Manual) Basophils % (Manual) Seg Neutrophils # 18.9 H Seg Neutrophils # Man Lymphocytes # (Manual) Monocytes # (Manual) Eosinophils # (Manual) Basophils # (Manual) PT INR D-Dimer ABG pH POC ABG pCO2 POC ABG pO2 ABG pO2 ABG HCO3 ABG O2 Saturation ABG Base Excess ABG Hemoglobin ABG Oxyhemoglobin ABG Potassium ABG Glucose Oxyhemoglobin Carboxyhemoglobin Sodium 146 H Potassium Chloride Carbon Dioxide 37 H BUN Creatinine < 0.2 L Glucose 118 H POC Glucose 111 H Calcium Ferritin Total Bilirubin Alkaline Phosphatase Lactate Dehydrogenase Total Creatine Kinase CK-MB (CK-2) Rel Index Troponin T C-Reactive Protein Total Protein Albumin 3.7 L Prealbumin LDL Cholesterol Direct Arterial Blood Glucose Arterial Blood Ionized Calcium Urine WBC (Auto) 1103/07/20 03/07/20 05:20 17:45 23:32 WBC RBC Hgb Hct MCV MCH RDW Plt Count Lymph % (Auto) Lymph # (Auto) [place] # (Auto) Seg Neutrophils % Seg Neuts % (Manual) Lymphocytes % (Manual) Monocytes % (Manual) Basophils % (Manual) Seg Neutrophils # Seg Neutrophils # Man Lymphocytes # (Manual) Monocytes # (Manual) Eosinophils # (Manual) Basophils # (Manual) PT INR D-Dimer ABG pH POC ABG pCO2 POC ABG pO2 ABG pO2 ABG HCO3 ABG O2 Saturation ABG Base Excess ABG Hemoglobin ABG Oxyhemoglobin ABG Potassium ABG Glucose Oxyhemoglobin Carboxyhemoglobin Sodium Potassium Chloride Carbon Dioxide BUN Creatinine Glucose POC Glucose 113 H 124 H 210 H Calcium Ferritin Total Bilirubin Alkaline Phosphatase Lactate Dehydrogenase Total Creatine Kinase CK-MB (CK-2) Rel Index Troponin T C-Reactive Protein Total Protein Albumin Prealbumin LDL Cholesterol Direct Arterial Blood Glucose Arterial Blood Ionized Calcium Urine WBC (Auto) 03/08/20 03/08/20 03/08/20 05:35 06:43 06:43 WBC 28.9 H RBC 3.53 L Hgb 9.7 L Hct 30.3 L MCV MCH RDW 15.6 H Plt Count 578 H Lymph % (Auto) Lymph # (Auto) [place] # (Auto) Seg Neutrophils % Seg Neuts % (Manual) 93.0 H Lymphocytes % (Manual) 4.0 L Monocytes % (Manual) Basophils % (Manual) Seg Neutrophils # Seg Neutrophils # Man 26.9 H Lymphocytes # (Manual) Monocytes # (Manual) Eosinophils # (Manual) Basophils # (Manual) PT INR D-Dimer ABG pH POC ABG pCO2 POC ABG pO2 ABG pO2 ABG HCO3 ABG O2 Saturation ABG Base Excess ABG Hemoglobin ABG Oxyhemoglobin ABG Potassium ABG Glucose Oxyhemoglobin Carboxyhemoglobin Sodium 146 H Potassium Chloride Carbon Dioxide 35 H BUN 34 H Creatinine 0.3 L D Glucose 125 H POC Glucose 147 H Calcium Ferritin Total Bilirubin Alkaline Phosphatase Lactate Dehydrogenase Total Creatine Kinase CK-MB (CK-2) Rel Index Troponin T C-Reactive Protein Total Protein 5.9 L Albumin 3.2 L Prealbumin LDL Cholesterol Direct Arterial Blood Glucose Arterial Blood Ionized Calcium Urine WBC (Auto) 03/08/20 03/08/20 03/08/20 08:57 11:14 12:34 WBC RBC Hgb Hct MCV MCH RDW Plt Count Lymph % (Auto) Lymph # (Auto) [place] # (Auto) Seg Neutrophils % Seg Neuts % (Manual) Lymphocytes % (Manual) Monocytes % (Manual) Basophils % (Manual) Seg Neutrophils # Seg Neutrophils # Man Lymphocytes # (Manual) Monocytes # (Manual) Eosinophils # (Manual) Basophils # (Manual) PT INR D-Dimer ABG pH POC ABG pCO2 63.1 H POC ABG pO2 ABG pO2 ABG HCO3 ABG O2 Saturation ABG Base Excess ABG Hemoglobin 10.9 L ABG Oxyhemoglobin ABG Potassium ABG Glucose 176 H Oxyhemoglobin Carboxyhemoglobin Sodium Potassium Chloride Carbon Dioxide BUN Creatinine Glucose POC Glucose 171 H Calcium Ferritin Total Bilirubin Alkaline Phosphatase Lactate Dehydrogenase Total Creatine Kinase CK-MB (CK-2) Rel Index Troponin T C-Reactive Protein Total Protein Albumin Prealbumin LDL Cholesterol Direct Arterial Blood Glucose 176 H Arterial Blood Ionized Calcium 4.5 L Urine WBC (Auto) 10.0 H 03/08/20 03/08/20 03/09/20 18:02 23:43 05:49 WBC RBC Hgb Hct MCV MCH RDW Plt Count Lymph % (Auto) Lymph # (Auto) [place] # (Auto) Seg Neutrophils % Seg Neuts % (Manual) Lymphocytes % (Manual) Monocytes % (Manual) Basophils % (Manual) Seg Neutrophils # Seg Neutrophils # Man Lymphocytes # (Manual) Monocytes # (Manual) Eosinophils # (Manual) Basophils # (Manual) PT INR D-Dimer ABG pH POC ABG pCO2 POC ABG pO2 ABG pO2 ABG HCO3 ABG O2 Saturation ABG Base Excess ABG Hemoglobin ABG Oxyhemoglobin ABG Potassium ABG Glucose Oxyhemoglobin Carboxyhemoglobin Sodium Potassium Chloride Carbon Dioxide BUN Creatinine Glucose POC Glucose 157 H 134 H 163 H Calcium Ferritin Total Bilirubin Alkaline Phosphatase Lactate Dehydrogenase Total Creatine Kinase CK-MB (CK-2) Rel Index Troponin T C-Reactive Protein Total Protein Albumin Prealbumin LDL Cholesterol Direct Arterial Blood Glucose Arterial Blood Ionized Calcium Urine WBC (Auto) 03/09/20 03/09/20 03/09/20 08:35 08:35 12:11 WBC 23.4 H RBC 3.36 L Hgb 9.3 L Hct 28.8 L MCV MCH RDW 15.9 H Plt Count 521 H Lymph % (Auto) Lymph # (Auto) [place] # (Auto) Seg Neutrophils % Seg Neuts % (Manual) 87.0 H Lymphocytes % (Manual) 4.0 L Monocytes % (Manual) 9.0 H Basophils % (Manual) Seg Neutrophils # Seg Neutrophils # Man 20.4 H Lymphocytes # (Manual) 0.9 L Monocytes # (Manual) 2.1 H Eosinophils # (Manual) Basophils # (Manual) PT INR D-Dimer ABG pH POC ABG pCO2 POC ABG pO2 ABG pO2 ABG HCO3 ABG O2 Saturation ABG Base Excess ABG Hemoglobin ABG Oxyhemoglobin ABG Potassium ABG Glucose Oxyhemoglobin Carboxyhemoglobin Sodium 147 H Potassium Chloride Carbon Dioxide 37 H BUN 63 H Creatinine Glucose 154 H POC Glucose 128 H Calcium Ferritin Total Bilirubin Alkaline Phosphatase Lactate Dehydrogenase Total Creatine Kinase CK-MB (CK-2) Rel Index Troponin T C-Reactive Protein Total Protein Albumin Prealbumin LDL Cholesterol Direct Arterial Blood Glucose Arterial Blood Ionized Calcium Urine WBC (Auto) 03/09/20 03/10/20 03/10/20 17:51 00:25 05:41 WBC RBC Hgb Hct MCV MCH RDW Plt Count Lymph % (Auto) Lymph # (Auto) [place] # (Auto) Seg Neutrophils % Seg Neuts % (Manual) Lymphocytes % (Manual) Monocytes % (Manual) Basophils % (Manual) Seg Neutrophils # Seg Neutrophils # Man Lymphocytes # (Manual) Monocytes # (Manual) Eosinophils # (Manual) Basophils # (Manual) PT INR D-Dimer ABG pH POC ABG pCO2 POC ABG pO2 ABG pO2 ABG HCO3 ABG O2 Saturation ABG Base Excess ABG Hemoglobin ABG Oxyhemoglobin ABG Potassium ABG Glucose Oxyhemoglobin Carboxyhemoglobin Sodium Potassium Chloride Carbon Dioxide BUN Creatinine Glucose POC Glucose 127 H 128 H 153 H Calcium Ferritin Total Bilirubin Alkaline Phosphatase Lactate Dehydrogenase Total Creatine Kinase CK-MB (CK-2) Rel Index Troponin T C-Reactive Protein Total Protein Albumin Prealbumin LDL Cholesterol Direct Arterial Blood Glucose Arterial Blood Ionized Calcium Urine WBC (Auto) 03/10/20 03/10/20 03/10/20 06:14 06:14 12:02 WBC 18.3 H RBC 3.45 L Hgb 9.5 L Hct 29.5 L MCV MCH RDW 16.1 H Plt Count 494 H Lymph % (Auto) Lymph # (Auto) [place] # (Auto) Seg Neutrophils % Seg Neuts % (Manual) 95.0 H Lymphocytes % (Manual) 1.0 L Monocytes % (Manual) Basophils % (Manual) Seg Neutrophils # Seg Neutrophils # Man 17.4 H Lymphocytes # (Manual) 0.2 L Monocytes # (Manual) Eosinophils # (Manual) Basophils # (Manual) PT INR D-Dimer ABG pH POC ABG pCO2 POC ABG pO2 ABG pO2 ABG HCO3 ABG O2 Saturation ABG Base Excess ABG Hemoglobin ABG Oxyhemoglobin ABG Potassium ABG Glucose Oxyhemoglobin Carboxyhemoglobin Sodium 149 H Potassium Chloride Carbon Dioxide 35 H BUN 34 H Creatinine 0.2 L D Glucose 177 H POC Glucose 151 H Calcium Ferritin Total Bilirubin Alkaline Phosphatase Lactate Dehydrogenase Total Creatine Kinase CK-MB (CK-2) Rel Index Troponin T C-Reactive Protein Total Protein Albumin Prealbumin LDL Cholesterol Direct Arterial Blood Glucose Arterial Blood Ionized Calcium Urine WBC (Auto) 03/10/20 03/10/20 03/11/20 17:41 23:53 05:02 WBC RBC Hgb Hct MCV MCH RDW Plt Count Lymph % (Auto) Lymph # (Auto) [place] # (Auto) Seg Neutrophils % Seg Neuts % (Manual) Lymphocytes % (Manual) Monocytes % (Manual) Basophils % (Manual) Seg Neutrophils # Seg Neutrophils # Man Lymphocytes # (Manual) Monocytes # (Manual) Eosinophils # (Manual) Basophils # (Manual) PT INR D-Dimer ABG pH POC ABG pCO2 POC ABG pO2 ABG pO2 ABG HCO3 ABG O2 Saturation ABG Base Excess ABG Hemoglobin ABG Oxyhemoglobin ABG Potassium ABG Glucose Oxyhemoglobin Carboxyhemoglobin Sodium Potassium Chloride Carbon Dioxide BUN Creatinine Glucose POC Glucose 168 H 142 H 146 H Calcium Ferritin Total Bilirubin Alkaline Phosphatase Lactate Dehydrogenase Total Creatine Kinase CK-MB (CK-2) Rel Index Troponin T C-Reactive Protein Total Protein Albumin Prealbumin LDL Cholesterol Direct Arterial Blood Glucose Arterial Blood Ionized Calcium Urine WBC (Auto) 03/11/20 03/11/20 03/11/20 11:30 14:01 14:01 WBC 19.7 H RBC 3.04 L Hgb 8.7 L Hct 25.8 L MCV MCH RDW 15.6 H Plt Count Lymph % (Auto) Lymph # (Auto) [place] # (Auto) Seg Neutrophils % Seg Neuts % (Manual) Lymphocytes % (Manual) Monocytes % (Manual) Basophils % (Manual) Seg Neutrophils # Seg Neutrophils # Man Lymphocytes # (Manual) Monocytes # (Manual) Eosinophils # (Manual) Basophils # (Manual) PT INR D-Dimer ABG pH POC ABG pCO2 POC ABG pO2 ABG pO2 ABG HCO3 ABG O2 Saturation ABG Base Excess ABG Hemoglobin ABG Oxyhemoglobin ABG Potassium ABG Glucose Oxyhemoglobin Carboxyhemoglobin Sodium 151 H Potassium Chloride Carbon Dioxide 37 H BUN Creatinine < 0.2 L Glucose 171 H POC Glucose 248 H Calcium Ferritin Total Bilirubin Alkaline Phosphatase Lactate Dehydrogenase Total Creatine Kinase CK-MB (CK-2) Rel Index Troponin T C-Reactive Protein Total Protein Albumin Prealbumin LDL Cholesterol Direct Arterial Blood Glucose Arterial Blood Ionized Calcium Urine WBC (Auto) 03/11/20 03/11/20 03/12/20 17:09 23:52 04:39 WBC 19.9 H RBC 3.16 L Hgb 8.9 L Hct 27.5 L MCV MCH RDW 15.7 H Plt Count Lymph % (Auto) 6.8 L Lymph # (Auto) [place] # (Auto) 1.2 H Seg Neutrophils % 86.0 H Seg Neuts % (Manual) Lymphocytes % (Manual) Monocytes % (Manual) Basophils % (Manual) Seg Neutrophils # 17.1 H Seg Neutrophils # Man Lymphocytes # (Manual) Monocytes # (Manual) Eosinophils # (Manual) Basophils # (Manual) PT INR D-Dimer ABG pH POC ABG pCO2 POC ABG pO2 ABG pO2 ABG HCO3 ABG O2 Saturation ABG Base Excess ABG Hemoglobin ABG Oxyhemoglobin ABG Potassium ABG Glucose Oxyhemoglobin Carboxyhemoglobin Sodium Potassium Chloride Carbon Dioxide BUN Creatinine Glucose POC Glucose 124 H 131 H Calcium Ferritin Total Bilirubin Alkaline Phosphatase Lactate Dehydrogenase Total Creatine Kinase CK-MB (CK-2) Rel Index Troponin T C-Reactive Protein Total Protein Albumin Prealbumin LDL Cholesterol Direct Arterial Blood Glucose Arterial Blood Ionized Calcium Urine WBC (Auto) 03/12/20 03/12/20 03/12/20 04:39 05:28 11:34 WBC RBC Hgb Hct MCV MCH RDW Plt Count Lymph % (Auto) Lymph # (Auto) [place] # (Auto) Seg Neutrophils % Seg Neuts % (Manual) Lymphocytes % (Manual) Monocytes % (Manual) Basophils % (Manual) Seg Neutrophils # Seg Neutrophils # Man Lymphocytes # (Manual) Monocytes # (Manual) Eosinophils # (Manual) Basophils # (Manual) PT INR D-Dimer ABG pH POC ABG pCO2 POC ABG pO2 ABG pO2 ABG HCO3 ABG O2 Saturation ABG Base Excess ABG Hemoglobin ABG Oxyhemoglobin ABG Potassium ABG Glucose Oxyhemoglobin Carboxyhemoglobin Sodium 147 H Potassium Chloride Carbon Dioxide 40 H BUN Creatinine < 0.2 L Glucose 175 H POC Glucose 167 H 144 H Calcium Ferritin Total Bilirubin Alkaline Phosphatase Lactate Dehydrogenase Total Creatine Kinase CK-MB (CK-2) Rel Index Troponin T C-Reactive Protein Total Protein Albumin Prealbumin LDL Cholesterol Direct Arterial Blood Glucose Arterial Blood Ionized Calcium Urine WBC (Auto) 03/12/20 03/12/20 03/13/20 17:32 23:57 05:57 WBC RBC Hgb Hct MCV MCH RDW Plt Count Lymph % (Auto) Lymph # (Auto) [place] # (Auto) Seg Neutrophils % Seg Neuts % (Manual) Lymphocytes % (Manual) Monocytes % (Manual) Basophils % (Manual) Seg Neutrophils # Seg Neutrophils # Man Lymphocytes # (Manual) Monocytes # (Manual) Eosinophils # (Manual) Basophils # (Manual) PT INR D-Dimer ABG pH POC ABG pCO2 POC ABG pO2 ABG pO2 ABG HCO3 ABG O2 Saturation ABG Base Excess ABG Hemoglobin ABG Oxyhemoglobin ABG Potassium ABG Glucose Oxyhemoglobin Carboxyhemoglobin Sodium Potassium Chloride Carbon Dioxide BUN Creatinine Glucose POC Glucose 141 H 137 H 161 H Calcium Ferritin Total Bilirubin Alkaline Phosphatase Lactate Dehydrogenase Total Creatine Kinase CK-MB (CK-2) Rel Index Troponin T C-Reactive Protein Total Protein Albumin Prealbumin LDL Cholesterol Direct Arterial Blood Glucose Arterial Blood Ionized Calcium Urine WBC (Auto) 03/13/20 03/13/20 03/13/20 12:28 14:14 18:39 WBC RBC Hgb Hct MCV MCH RDW Plt Count Lymph % (Auto) Lymph # (Auto) [place] # (Auto) Seg Neutrophils % Seg Neuts % (Manual) Lymphocytes % (Manual) Monocytes % (Manual) Basophils % (Manual) Seg Neutrophils # Seg Neutrophils # Man Lymphocytes # (Manual) Monocytes # (Manual) Eosinophils # (Manual) Basophils # (Manual) PT INR D-Dimer ABG pH POC ABG pCO2 POC ABG pO2 ABG pO2 ABG HCO3 ABG O2 Saturation ABG Base Excess ABG Hemoglobin ABG Oxyhemoglobin ABG Potassium ABG Glucose Oxyhemoglobin Carboxyhemoglobin Sodium Potassium Chloride Carbon Dioxide 39 H BUN Creatinine < 0.2 L Glucose 129 H POC Glucose 130 H 125 H Calcium Ferritin Total Bilirubin Alkaline Phosphatase Lactate Dehydrogenase Total Creatine Kinase CK-MB (CK-2) Rel Index Troponin T C-Reactive Protein Total Protein Albumin Prealbumin LDL Cholesterol Direct Arterial Blood Glucose Arterial Blood Ionized Calcium Urine WBC (Auto) 03/13/20 03/14/20 03/14/20 23:33 05:24 08:07 WBC 16.8 H RBC 2.81 L Hgb 7.9 L Hct 23.9 L MCV MCH RDW 15.9 H Plt Count Lymph % (Auto) Lymph # (Auto) [place] # (Auto) Seg Neutrophils % Seg Neuts % (Manual) 84.0 H Lymphocytes % (Manual) 10.0 L Monocytes % (Manual) Basophils % (Manual) Seg Neutrophils # Seg Neutrophils # Man 14.1 H Lymphocytes # (Manual) Monocytes # (Manual) Eosinophils # (Manual) Basophils # (Manual) PT INR D-Dimer ABG pH POC ABG pCO2 POC ABG pO2 ABG pO2 ABG HCO3 ABG O2 Saturation ABG Base Excess ABG Hemoglobin ABG Oxyhemoglobin ABG Potassium ABG Glucose Oxyhemoglobin Carboxyhemoglobin Sodium Potassium Chloride Carbon Dioxide BUN Creatinine Glucose POC Glucose 146 H 125 H Calcium Ferritin Total Bilirubin Alkaline Phosphatase Lactate Dehydrogenase Total Creatine Kinase CK-MB (CK-2) Rel Index Troponin T C-Reactive Protein Total Protein Albumin Prealbumin LDL Cholesterol Direct Arterial Blood Glucose Arterial Blood Ionized Calcium Urine WBC (Auto) 03/14/20 03/14/20 03/14/20 08:07 12:21 18:26 WBC RBC Hgb Hct MCV MCH RDW Plt Count Lymph % (Auto) Lymph # (Auto) [place] # (Auto) Seg Neutrophils % Seg Neuts % (Manual) Lymphocytes % (Manual) Monocytes % (Manual) Basophils % (Manual) Seg Neutrophils # Seg Neutrophils # Man Lymphocytes # (Manual) Monocytes # (Manual) Eosinophils # (Manual) Basophils # (Manual) PT INR D-Dimer ABG pH POC ABG pCO2 POC ABG pO2 ABG pO2 ABG HCO3 ABG O2 Saturation ABG Base Excess ABG Hemoglobin ABG Oxyhemoglobin ABG Potassium ABG Glucose Oxyhemoglobin Carboxyhemoglobin Sodium Potassium Chloride 97.0 L Carbon Dioxide 37 H BUN Creatinine < 0.2 L Glucose 129 H POC Glucose 109 H 142 H Calcium 8.3 L Ferritin Total Bilirubin Alkaline Phosphatase Lactate Dehydrogenase Total Creatine Kinase CK-MB (CK-2) Rel Index Troponin T C-Reactive Protein Total Protein Albumin Prealbumin LDL Cholesterol Direct Arterial Blood Glucose Arterial Blood Ionized Calcium Urine WBC (Auto) 03/14/20 03/15/20 03/15/20 23:57 05:46 08:06 WBC 19.7 H RBC 3.29 L Hgb 9.1 L Hct 28.0 L MCV MCH RDW 15.9 H Plt Count Lymph % (Auto) Lymph # (Auto) [place] # (Auto) Seg Neutrophils % Seg Neuts % (Manual) Lymphocytes % (Manual) Monocytes % (Manual) Basophils % (Manual) Seg Neutrophils # Seg Neutrophils # Man Lymphocytes # (Manual) Monocytes # (Manual) Eosinophils # (Manual) Basophils # (Manual) PT INR D-Dimer ABG pH POC ABG pCO2 POC ABG pO2 ABG pO2 ABG HCO3 ABG O2 Saturation ABG Base Excess ABG Hemoglobin ABG Oxyhemoglobin ABG Potassium ABG Glucose Oxyhemoglobin Carboxyhemoglobin Sodium Potassium Chloride Carbon Dioxide BUN Creatinine Glucose POC Glucose 157 H 118 H Calcium Ferritin Total Bilirubin Alkaline Phosphatase Lactate Dehydrogenase Total Creatine Kinase CK-MB (CK-2) Rel Index Troponin T C-Reactive Protein Total Protein Albumin Prealbumin LDL Cholesterol Direct Arterial Blood Glucose Arterial Blood Ionized Calcium Urine WBC (Auto) 03/15/20 03/15/20 03/15/20 08:06 12:44 18:09 WBC RBC Hgb Hct MCV MCH RDW Plt Count Lymph % (Auto) Lymph # (Auto) [place] # (Auto) Seg Neutrophils % Seg Neuts % (Manual) Lymphocytes % (Manual) Monocytes % (Manual) Basophils % (Manual) Seg Neutrophils # Seg Neutrophils # Man Lymphocytes # (Manual) Monocytes # (Manual) Eosinophils # (Manual) Basophils # (Manual) PT INR D-Dimer ABG pH POC ABG pCO2 POC ABG pO2 ABG pO2 ABG HCO3 ABG O2 Saturation ABG Base Excess ABG Hemoglobin ABG Oxyhemoglobin ABG Potassium ABG Glucose Oxyhemoglobin Carboxyhemoglobin Sodium 136 L Potassium Chloride 93.6 L Carbon Dioxide 37 H BUN Creatinine < 0.2 L Glucose 132 H POC Glucose 151 H 164 H Calcium Ferritin Total Bilirubin Alkaline Phosphatase Lactate Dehydrogenase Total Creatine Kinase CK-MB (CK-2) Rel Index Troponin T C-Reactive Protein Total Protein Albumin Prealbumin LDL Cholesterol Direct Arterial Blood Glucose Arterial Blood Ionized Calcium Urine WBC (Auto) 03/15/20 03/16/20 03/16/20 23:26 05:39 11:58 WBC RBC Hgb Hct MCV MCH RDW Plt Count Lymph % (Auto) Lymph # (Auto) [place] # (Auto) Seg Neutrophils % Seg Neuts % (Manual) Lymphocytes % (Manual) Monocytes % (Manual) Basophils % (Manual) Seg Neutrophils # Seg Neutrophils # Man Lymphocytes # (Manual) Monocytes # (Manual) Eosinophils # (Manual) Basophils # (Manual) PT INR D-Dimer ABG pH POC ABG pCO2 POC ABG pO2 ABG pO2 ABG HCO3 ABG O2 Saturation ABG Base Excess ABG Hemoglobin ABG Oxyhemoglobin ABG Potassium ABG Glucose Oxyhemoglobin Carboxyhemoglobin Sodium Potassium Chloride Carbon Dioxide BUN Creatinine Glucose POC Glucose 136 H 116 H 109 H Calcium Ferritin Total Bilirubin Alkaline Phosphatase Lactate Dehydrogenase Total Creatine Kinase CK-MB (CK-2) Rel Index Troponin T C-Reactive Protein Total Protein Albumin Prealbumin LDL Cholesterol Direct Arterial Blood Glucose Arterial Blood Ionized Calcium Urine WBC (Auto) 03/16/20 03/17/20 03/17/20 23:56 04:40 04:40 WBC 18.0 H RBC 3.33 L Hgb 9.5 L Hct 28.8 L MCV MCH RDW 16.4 H Plt Count 499 H Lymph % (Auto) Lymph # (Auto) [place] # (Auto) Seg Neutrophils % Seg Neuts % (Manual) 82.0 H Lymphocytes % (Manual) 8.0 L Monocytes % (Manual) Basophils % (Manual) Seg Neutrophils # Seg Neutrophils # Man 14.8 H Lymphocytes # (Manual) Monocytes # (Manual) 1.3 H Eosinophils # (Manual) Basophils # (Manual) 0.2 H PT INR D-Dimer ABG pH POC ABG pCO2 POC ABG pO2 ABG pO2 ABG HCO3 ABG O2 Saturation ABG Base Excess ABG Hemoglobin ABG Oxyhemoglobin ABG Potassium ABG Glucose Oxyhemoglobin Carboxyhemoglobin Sodium Potassium Chloride 97.7 L Carbon Dioxide 32 H BUN Creatinine < 0.2 L Glucose 114 H POC Glucose 131 H Calcium Ferritin Total Bilirubin Alkaline Phosphatase Lactate Dehydrogenase Total Creatine Kinase CK-MB (CK-2) Rel Index Troponin T C-Reactive Protein Total Protein Albumin Prealbumin LDL Cholesterol Direct Arterial Blood Glucose Arterial Blood Ionized Calcium Urine WBC (Auto) 03/18/20 03/18/20 03/18/20 00:21 05:21 11:55 WBC RBC Hgb Hct MCV MCH RDW Plt Count Lymph % (Auto) Lymph # (Auto) [place] # (Auto) Seg Neutrophils % Seg Neuts % (Manual) Lymphocytes % (Manual) Monocytes % (Manual) Basophils % (Manual) Seg Neutrophils # Seg Neutrophils # Man Lymphocytes # (Manual) Monocytes # (Manual) Eosinophils # (Manual) Basophils # (Manual) PT INR D-Dimer ABG pH POC ABG pCO2 POC ABG pO2 ABG pO2 ABG HCO3 ABG O2 Saturation ABG Base Excess ABG Hemoglobin ABG Oxyhemoglobin ABG Potassium ABG Glucose Oxyhemoglobin Carboxyhemoglobin Sodium Potassium Chloride Carbon Dioxide BUN Creatinine Glucose POC Glucose 124 H 138 H 119 H Calcium Ferritin Total Bilirubin Alkaline Phosphatase Lactate Dehydrogenase Total Creatine Kinase CK-MB (CK-2) Rel Index Troponin T C-Reactive Protein Total Protein Albumin Prealbumin LDL Cholesterol Direct Arterial Blood Glucose Arterial Blood Ionized Calcium Urine WBC (Auto) 03/18/20 03/18/20 03/19/20 17:03 23:58 05:24 WBC RBC Hgb Hct MCV MCH RDW Plt Count Lymph % (Auto) Lymph # (Auto) [place] # (Auto) Seg Neutrophils % Seg Neuts % (Manual) Lymphocytes % (Manual) Monocytes % (Manual) Basophils % (Manual) Seg Neutrophils # Seg Neutrophils # Man Lymphocytes # (Manual) Monocytes # (Manual) Eosinophils # (Manual) Basophils # (Manual) PT INR D-Dimer ABG pH POC ABG pCO2 POC ABG pO2 ABG pO2 ABG HCO3 ABG O2 Saturation ABG Base Excess ABG Hemoglobin ABG Oxyhemoglobin ABG Potassium ABG Glucose Oxyhemoglobin Carboxyhemoglobin Sodium Potassium Chloride Carbon Dioxide BUN Creatinine Glucose POC Glucose 128 H 128 H 115 H Calcium Ferritin Total Bilirubin Alkaline Phosphatase Lactate Dehydrogenase Total Creatine Kinase CK-MB (CK-2) Rel Index Troponin T C-Reactive Protein Total Protein Albumin Prealbumin LDL Cholesterol Direct Arterial Blood Glucose Arterial Blood Ionized Calcium Urine WBC (Auto) 03/19/20 03/19/20 03/19/20 08:05 08:05 11:56 WBC 16.8 H RBC 3.36 L Hgb 9.4 L Hct 28.8 L MCV MCH RDW 17.4 H Plt Count 567 H Lymph % (Auto) 7.8 L Lymph # (Auto) [place] # (Auto) 1.2 H Seg Neutrophils % 83.5 H Seg Neuts % (Manual) Lymphocytes % (Manual) Monocytes % (Manual) Basophils % (Manual) Seg Neutrophils # 14.1 H Seg Neutrophils # Man Lymphocytes # (Manual) Monocytes # (Manual) Eosinophils # (Manual) Basophils # (Manual) PT INR D-Dimer ABG pH POC ABG pCO2 POC ABG pO2 ABG pO2 ABG HCO3 ABG O2 Saturation ABG Base Excess ABG Hemoglobin ABG Oxyhemoglobin ABG Potassium ABG Glucose Oxyhemoglobin Carboxyhemoglobin Sodium Potassium Chloride Carbon Dioxide 36 H BUN Creatinine < 0.2 L Glucose 135 H POC Glucose 128 H Calcium Ferritin Total Bilirubin Alkaline Phosphatase Lactate Dehydrogenase Total Creatine Kinase CK-MB (CK-2) Rel Index Troponin T C-Reactive Protein Total Protein Albumin Prealbumin LDL Cholesterol Direct Arterial Blood Glucose Arterial Blood Ionized Calcium Urine WBC (Auto) 03/19/20 03/20/20 03/20/20 23:59 05:12 16:52 WBC RBC Hgb Hct MCV MCH RDW Plt Count Lymph % (Auto) Lymph # (Auto) [place] # (Auto) Seg Neutrophils % Seg Neuts % (Manual) Lymphocytes % (Manual) Monocytes % (Manual) Basophils % (Manual) Seg Neutrophils # Seg Neutrophils # Man Lymphocytes # (Manual) Monocytes # (Manual) Eosinophils # (Manual) Basophils # (Manual) PT INR D-Dimer ABG pH POC ABG pCO2 POC ABG pO2 ABG pO2 ABG HCO3 ABG O2 Saturation ABG Base Excess ABG Hemoglobin ABG Oxyhemoglobin ABG Potassium ABG Glucose Oxyhemoglobin Carboxyhemoglobin Sodium Potassium Chloride Carbon Dioxide BUN Creatinine Glucose POC Glucose 120 H 131 H 124 H Calcium Ferritin Total Bilirubin Alkaline Phosphatase Lactate Dehydrogenase Total Creatine Kinase CK-MB (CK-2) Rel Index Troponin T C-Reactive Protein Total Protein Albumin Prealbumin LDL Cholesterol Direct Arterial Blood Glucose Arterial Blood Ionized Calcium Urine WBC (Auto) 03/20/20 03/21/20 03/21/20 23:35 04:50 07:35 WBC 15.2 H RBC 3.39 L Hgb 9.4 L Hct 29.4 L MCV MCH RDW 17.6 H Plt Count 518 H Lymph % (Auto) Lymph # (Auto) [place] # (Auto) Seg Neutrophils % Seg Neuts % (Manual) 83.0 H Lymphocytes % (Manual) 10.0 L Monocytes % (Manual) Basophils % (Manual) 2.0 H Seg Neutrophils # Seg Neutrophils # Man 12.6 H Lymphocytes # (Manual) Monocytes # (Manual) Eosinophils # (Manual) Basophils # (Manual) 0.3 H PT INR D-Dimer ABG pH POC ABG pCO2 POC ABG pO2 ABG pO2 ABG HCO3 ABG O2 Saturation ABG Base Excess ABG Hemoglobin ABG Oxyhemoglobin ABG Potassium ABG Glucose Oxyhemoglobin Carboxyhemoglobin Sodium Potassium Chloride Carbon Dioxide BUN Creatinine Glucose POC Glucose 125 H 127 H Calcium Ferritin Total Bilirubin Alkaline Phosphatase Lactate Dehydrogenase Total Creatine Kinase CK-MB (CK-2) Rel Index Troponin T C-Reactive Protein Total Protein Albumin Prealbumin LDL Cholesterol Direct Arterial Blood Glucose Arterial Blood Ionized Calcium Urine WBC (Auto) 03/21/20 03/21/20 03/21/20 07:35 11:45 17:22 WBC RBC Hgb Hct MCV MCH RDW Plt Count Lymph % (Auto) Lymph # (Auto) [place] # (Auto) Seg Neutrophils % Seg Neuts % (Manual) Lymphocytes % (Manual) Monocytes % (Manual) Basophils % (Manual) Seg Neutrophils # Seg Neutrophils # Man Lymphocytes # (Manual) Monocytes # (Manual) Eosinophils # (Manual) Basophils # (Manual) PT INR D-Dimer ABG pH POC ABG pCO2 POC ABG pO2 ABG pO2 ABG HCO3 ABG O2 Saturation ABG Base Excess ABG Hemoglobin ABG Oxyhemoglobin ABG Potassium ABG Glucose Oxyhemoglobin Carboxyhemoglobin Sodium 136 L Potassium Chloride 97.7 L Carbon Dioxide 32 H BUN Creatinine < 0.2 L Glucose 103 H POC Glucose 126 H 120 H Calcium Ferritin Total Bilirubin Alkaline Phosphatase Lactate Dehydrogenase Total Creatine Kinase CK-MB (CK-2) Rel Index Troponin T C-Reactive Protein Total Protein Albumin Prealbumin LDL Cholesterol Direct Arterial Blood Glucose Arterial Blood Ionized Calcium Urine WBC (Auto) 03/22/20 03/22/20 03/22/20 05:09 06:34 06:34 WBC 17.5 H RBC 3.52 L Hgb 10.0 L Hct 30.7 L MCV MCH RDW 17.5 H Plt Count 499 H Lymph % (Auto) Lymph # (Auto) [place] # (Auto) Seg Neutrophils % Seg Neuts % (Manual) 80.0 H Lymphocytes % (Manual) 10.0 L Monocytes % (Manual) Basophils % (Manual) Seg Neutrophils # Seg Neutrophils # Man 14.0 H Lymphocytes # (Manual) Monocytes # (Manual) Eosinophils # (Manual) Basophils # (Manual) PT INR D-Dimer ABG pH POC ABG pCO2 POC ABG pO2 ABG pO2 ABG HCO3 ABG O2 Saturation ABG Base Excess ABG Hemoglobin ABG Oxyhemoglobin ABG Potassium ABG Glucose Oxyhemoglobin Carboxyhemoglobin Sodium Potassium Chloride 96.6 L Carbon Dioxide 38 H BUN Creatinine < 0.2 L Glucose 139 H POC Glucose 125 H Calcium Ferritin Total Bilirubin Alkaline Phosphatase Lactate Dehydrogenase Total Creatine Kinase CK-MB (CK-2) Rel Index Troponin T C-Reactive Protein Total Protein Albumin Prealbumin LDL Cholesterol Direct Arterial Blood Glucose Arterial Blood Ionized Calcium Urine WBC (Auto) 03/22/20 03/22/20 03/22/20 11:45 18:00 23:32 WBC RBC Hgb Hct MCV MCH RDW Plt Count Lymph % (Auto) Lymph # (Auto) [place] # (Auto) Seg Neutrophils % Seg Neuts % (Manual) Lymphocytes % (Manual) Monocytes % (Manual) Basophils % (Manual) Seg Neutrophils # Seg Neutrophils # Man Lymphocytes # (Manual) Monocytes # (Manual) Eosinophils # (Manual) Basophils # (Manual) PT INR D-Dimer ABG pH POC ABG pCO2 POC ABG pO2 ABG pO2 ABG HCO3 ABG O2 Saturation ABG Base Excess ABG Hemoglobin ABG Oxyhemoglobin ABG Potassium ABG Glucose Oxyhemoglobin Carboxyhemoglobin Sodium Potassium Chloride Carbon Dioxide BUN Creatinine Glucose POC Glucose 135 H 133 H Calcium Ferritin Total Bilirubin Alkaline Phosphatase Lactate Dehydrogenase Total Creatine Kinase CK-MB (CK-2) Rel Index Troponin T 0.113 H* C-Reactive Protein Total Protein Albumin Prealbumin LDL Cholesterol Direct Arterial Blood Glucose Arterial Blood Ionized Calcium Urine WBC (Auto) 03/23/20 03/23/20 03/23/20 01:47 06:21 07:57 WBC RBC Hgb Hct MCV MCH RDW Plt Count Lymph % (Auto) Lymph # (Auto) [place] # (Auto) Seg Neutrophils % Seg Neuts % (Manual) Lymphocytes % (Manual) Monocytes % (Manual) Basophils % (Manual) Seg Neutrophils # Seg Neutrophils # Man Lymphocytes # (Manual) Monocytes # (Manual) Eosinophils # (Manual) Basophils # (Manual) PT INR D-Dimer ABG pH POC ABG pCO2 POC ABG pO2 ABG pO2 ABG HCO3 ABG O2 Saturation ABG Base Excess ABG Hemoglobin ABG Oxyhemoglobin ABG Potassium ABG Glucose Oxyhemoglobin Carboxyhemoglobin Sodium Potassium Chloride Carbon Dioxide BUN Creatinine Glucose POC Glucose 130 H Calcium Ferritin Total Bilirubin Alkaline Phosphatase Lactate Dehydrogenase Total Creatine Kinase CK-MB (CK-2) Rel Index Troponin T 0.143 H* D 0.105 H* D C-Reactive Protein Total Protein Albumin Prealbumin LDL Cholesterol Direct Arterial Blood Glucose Arterial Blood Ionized Calcium Urine WBC (Auto) 03/23/20 03/24/20 03/24/20 12:02 05:33 07:15 WBC 18.0 H RBC Hgb 11.0 L Hct 34.0 L MCV MCH RDW 17.4 H Plt Count 520 H Lymph % (Auto) Lymph # (Auto) [place] # (Auto) Seg Neutrophils % Seg Neuts % (Manual) 88.0 H Lymphocytes % (Manual) 7.0 L Monocytes % (Manual) Basophils % (Manual) Seg Neutrophils # Seg Neutrophils # Man 15.8 H Lymphocytes # (Manual) Monocytes # (Manual) Eosinophils # (Manual) Basophils # (Manual) PT INR D-Dimer ABG pH POC ABG pCO2 POC ABG pO2 ABG pO2 ABG HCO3 ABG O2 Saturation ABG Base Excess ABG Hemoglobin ABG Oxyhemoglobin ABG Potassium ABG Glucose Oxyhemoglobin Carboxyhemoglobin Sodium Potassium Chloride Carbon Dioxide BUN Creatinine Glucose POC Glucose 137 H 112 H Calcium Ferritin Total Bilirubin Alkaline Phosphatase Lactate Dehydrogenase Total Creatine Kinase CK-MB (CK-2) Rel Index Troponin T C-Reactive Protein Total Protein Albumin Prealbumin LDL Cholesterol Direct Arterial Blood Glucose Arterial Blood Ionized Calcium Urine WBC (Auto) 03/24/20 03/24/20 03/24/20 07:15 11:22 23:30 WBC RBC Hgb Hct MCV MCH RDW Plt Count Lymph % (Auto) Lymph # (Auto) [place] # (Auto) Seg Neutrophils % Seg Neuts % (Manual) Lymphocytes % (Manual) Monocytes % (Manual) Basophils % (Manual) Seg Neutrophils # Seg Neutrophils # Man Lymphocytes # (Manual) Monocytes # (Manual) Eosinophils # (Manual) Basophils # (Manual) PT INR D-Dimer ABG pH POC ABG pCO2 POC ABG pO2 ABG pO2 ABG HCO3 ABG O2 Saturation ABG Base Excess ABG Hemoglobin ABG Oxyhemoglobin ABG Potassium ABG Glucose Oxyhemoglobin Carboxyhemoglobin Sodium Potassium Chloride 96.6 L Carbon Dioxide 38 H BUN Creatinine < 0.2 L Glucose 141 H POC Glucose 130 H 120 H Calcium Ferritin Total Bilirubin Alkaline Phosphatase Lactate Dehydrogenase Total Creatine Kinase CK-MB (CK-2) Rel Index Troponin T C-Reactive Protein Total Protein Albumin Prealbumin LDL Cholesterol Direct Arterial Blood Glucose Arterial Blood Ionized Calcium Urine WBC (Auto) 03/25/20 03/25/20 03/25/20 05:48 17:53 23:18 WBC RBC Hgb Hct MCV MCH RDW Plt Count Lymph % (Auto) Lymph # (Auto) [place] # (Auto) Seg Neutrophils % Seg Neuts % (Manual) Lymphocytes % (Manual) Monocytes % (Manual) Basophils % (Manual) Seg Neutrophils # Seg Neutrophils # Man Lymphocytes # (Manual) Monocytes # (Manual) Eosinophils # (Manual) Basophils # (Manual) PT INR D-Dimer ABG pH POC ABG pCO2 POC ABG pO2 ABG pO2 ABG HCO3 ABG O2 Saturation ABG Base Excess ABG Hemoglobin ABG Oxyhemoglobin ABG Potassium ABG Glucose Oxyhemoglobin Carboxyhemoglobin Sodium Potassium Chloride Carbon Dioxide BUN Creatinine Glucose POC Glucose 124 H 109 H 131 H Calcium Ferritin Total Bilirubin Alkaline Phosphatase Lactate Dehydrogenase Total Creatine Kinase CK-MB (CK-2) Rel Index Troponin T C-Reactive Protein Total Protein Albumin Prealbumin LDL Cholesterol Direct Arterial Blood Glucose Arterial Blood Ionized Calcium Urine WBC (Auto) 03/26/20 03/26/20 03/26/20 05:21 08:49 08:49 WBC 19.7 H RBC Hgb 10.7 L Hct 33.5 L MCV MCH 27 L RDW 17.1 H Plt Count 480 H Lymph % (Auto) 5.7 L Lymph # (Auto) 1.1 L [place] # (Auto) 1.2 H Seg Neutrophils % 87.7 H Seg Neuts % (Manual) Lymphocytes % (Manual) Monocytes % (Manual) Basophils % (Manual) Seg Neutrophils # 17.2 H Seg Neutrophils # Man Lymphocytes # (Manual) Monocytes # (Manual) Eosinophils # (Manual) Basophils # (Manual) PT INR D-Dimer ABG pH POC ABG pCO2 POC ABG pO2 ABG pO2 ABG HCO3 ABG O2 Saturation ABG Base Excess ABG Hemoglobin ABG Oxyhemoglobin ABG Potassium ABG Glucose Oxyhemoglobin Carboxyhemoglobin Sodium Potassium Chloride 97.2 L Carbon Dioxide 36 H BUN Creatinine < 0.2 L Glucose 127 H POC Glucose 116 H Calcium Ferritin Total Bilirubin Alkaline Phosphatase Lactate Dehydrogenase Total Creatine Kinase CK-MB (CK-2) Rel Index Troponin T C-Reactive Protein Total Protein Albumin Prealbumin LDL Cholesterol Direct Arterial Blood Glucose Arterial Blood Ionized Calcium Urine WBC (Auto) 03/26/20 03/26/20 03/26/20 11:38 18:44 23:06 WBC RBC Hgb Hct MCV MCH RDW Plt Count Lymph % (Auto) Lymph # (Auto) [place] # (Auto) Seg Neutrophils % Seg Neuts % (Manual) Lymphocytes % (Manual) Monocytes % (Manual) Basophils % (Manual) Seg Neutrophils # Seg Neutrophils # Man Lymphocytes # (Manual) Monocytes # (Manual) Eosinophils # (Manual) Basophils # (Manual) PT INR D-Dimer ABG pH POC ABG pCO2 POC ABG pO2 ABG pO2 ABG HCO3 ABG O2 Saturation ABG Base Excess ABG Hemoglobin ABG Oxyhemoglobin ABG Potassium ABG Glucose Oxyhemoglobin Carboxyhemoglobin Sodium Potassium Chloride Carbon Dioxide BUN Creatinine Glucose POC Glucose 120 H 111 H 134 H Calcium Ferritin Total Bilirubin Alkaline Phosphatase Lactate Dehydrogenase Total Creatine Kinase CK-MB (CK-2) Rel Index Troponin T C-Reactive Protein Total Protein Albumin Prealbumin LDL Cholesterol Direct Arterial Blood Glucose Arterial Blood Ionized Calcium Urine WBC (Auto) 03/27/20 03/27/20 03/27/20 05:41 05:59 05:59 WBC 18.6 H RBC Hgb 10.1 L Hct 31.4 L MCV MCH RDW 17.2 H Plt Count Lymph % (Auto) 8.0 L Lymph # (Auto) [place] # (Auto) 1.2 H Seg Neutrophils % 84.7 H Seg Neuts % (Manual) Lymphocytes % (Manual) Monocytes % (Manual) Basophils % (Manual) Seg Neutrophils # 15.8 H Seg Neutrophils # Man Lymphocytes # (Manual) Monocytes # (Manual) Eosinophils # (Manual) Basophils # (Manual) PT INR D-Dimer ABG pH POC ABG pCO2 POC ABG pO2 ABG pO2 ABG HCO3 ABG O2 Saturation ABG Base Excess ABG Hemoglobin ABG Oxyhemoglobin ABG Potassium ABG Glucose Oxyhemoglobin Carboxyhemoglobin Sodium Potassium Chloride Carbon Dioxide 34 H BUN Creatinine < 0.2 L Glucose 127 H POC Glucose 129 H Calcium Ferritin Total Bilirubin Alkaline Phosphatase Lactate Dehydrogenase Total Creatine Kinase CK-MB (CK-2) Rel Index Troponin T C-Reactive Protein Total Protein Albumin Prealbumin LDL Cholesterol Direct Arterial Blood Glucose Arterial Blood Ionized Calcium Urine WBC (Auto) 03/27/20 03/27/20 03/28/20 17:28 23:22 05:23 WBC RBC Hgb Hct MCV MCH RDW Plt Count Lymph % (Auto) Lymph # (Auto) [place] # (Auto) Seg Neutrophils % Seg Neuts % (Manual) Lymphocytes % (Manual) Monocytes % (Manual) Basophils % (Manual) Seg Neutrophils # Seg Neutrophils # Man Lymphocytes # (Manual) Monocytes # (Manual) Eosinophils # (Manual) Basophils # (Manual) PT INR D-Dimer ABG pH POC ABG pCO2 POC ABG pO2 ABG pO2 ABG HCO3 ABG O2 Saturation ABG Base Excess ABG Hemoglobin ABG Oxyhemoglobin ABG Potassium ABG Glucose Oxyhemoglobin Carboxyhemoglobin Sodium Potassium Chloride Carbon Dioxide BUN Creatinine Glucose POC Glucose 108 H 119 H 129 H Calcium Ferritin Total Bilirubin Alkaline Phosphatase Lactate Dehydrogenase Total Creatine Kinase CK-MB (CK-2) Rel Index Troponin T C-Reactive Protein Total Protein Albumin Prealbumin LDL Cholesterol Direct Arterial Blood Glucose Arterial Blood Ionized Calcium Urine WBC (Auto) 03/28/20 03/28/20 03/28/20 10:28 10:28 11:36 WBC 23.6 H RBC 3.62 L Hgb 10.0 L Hct 30.8 L MCV MCH RDW 16.4 H Plt Count Lymph % (Auto) Lymph # (Auto) [place] # (Auto) Seg Neutrophils % Seg Neuts % (Manual) 89.0 H Lymphocytes % (Manual) 5.0 L Monocytes % (Manual) Basophils % (Manual) Seg Neutrophils # Seg Neutrophils # Man 21.0 H Lymphocytes # (Manual) Monocytes # (Manual) 1.2 H Eosinophils # (Manual) Basophils # (Manual) 0.2 H PT INR D-Dimer ABG pH POC ABG pCO2 POC ABG pO2 ABG pO2 ABG HCO3 ABG O2 Saturation ABG Base Excess ABG Hemoglobin ABG Oxyhemoglobin ABG Potassium ABG Glucose Oxyhemoglobin Carboxyhemoglobin Sodium 134 L Potassium Chloride 94.2 L Carbon Dioxide 35 H BUN Creatinine < 0.2 L Glucose 134 H POC Glucose Calcium Ferritin Total Bilirubin Alkaline Phosphatase Lactate Dehydrogenase Total Creatine Kinase CK-MB (CK-2) Rel Index Troponin T C-Reactive Protein Total Protein Albumin Prealbumin LDL Cholesterol Direct Arterial Blood Glucose Arterial Blood Ionized Calcium Urine WBC (Auto) 39.0 H 03/28/20 03/28/20 03/28/20 11:51 17:08 17:17 WBC RBC Hgb Hct MCV MCH RDW Plt Count Lymph % (Auto) Lymph # (Auto) [place] # (Auto) Seg Neutrophils % Seg Neuts % (Manual) Lymphocytes % (Manual) Monocytes % (Manual) Basophils % (Manual) Seg Neutrophils # Seg Neutrophils # Man Lymphocytes # (Manual) Monocytes # (Manual) Eosinophils # (Manual) Basophils # (Manual) PT INR D-Dimer ABG pH POC ABG pCO2 POC ABG pO2 ABG pO2 ABG HCO3 ABG O2 Saturation ABG Base Excess ABG Hemoglobin ABG Oxyhemoglobin ABG Potassium ABG Glucose Oxyhemoglobin Carboxyhemoglobin Sodium Potassium Chloride Carbon Dioxide BUN Creatinine Glucose POC Glucose 123 H 112 H Calcium Ferritin Total Bilirubin Alkaline Phosphatase Lactate Dehydrogenase Total Creatine Kinase 47 L CK-MB (CK-2) Rel Index 4.6 H Troponin T 0.090 H C-Reactive Protein Total Protein Albumin Prealbumin LDL Cholesterol Direct Arterial Blood Glucose Arterial Blood Ionized Calcium Urine WBC (Auto) 03/28/20 03/29/20 03/29/20 23:22 05:22 10:58 WBC RBC Hgb Hct MCV MCH RDW Plt Count Lymph % (Auto) Lymph # (Auto) [place] # (Auto) Seg Neutrophils % Seg Neuts % (Manual) Lymphocytes % (Manual) Monocytes % (Manual) Basophils % (Manual) Seg Neutrophils # Seg Neutrophils # Man Lymphocytes # (Manual) Monocytes # (Manual) Eosinophils # (Manual) Basophils # (Manual) PT INR D-Dimer ABG pH POC ABG pCO2 POC ABG pO2 ABG pO2 ABG HCO3 ABG O2 Saturation ABG Base Excess ABG Hemoglobin ABG Oxyhemoglobin ABG Potassium ABG Glucose Oxyhemoglobin Carboxyhemoglobin Sodium Potassium Chloride Carbon Dioxide BUN Creatinine Glucose POC Glucose 122 H 116 H 133 H Calcium Ferritin Total Bilirubin Alkaline Phosphatase Lactate Dehydrogenase Total Creatine Kinase CK-MB (CK-2) Rel Index Troponin T C-Reactive Protein Total Protein Albumin Prealbumin LDL Cholesterol Direct Arterial Blood Glucose Arterial Blood Ionized Calcium Urine WBC (Auto) 03/29/20 03/29/20 03/30/20 17:18 23:14 04:57 WBC RBC Hgb Hct MCV MCH RDW Plt Count Lymph % (Auto) Lymph # (Auto) [place] # (Auto) Seg Neutrophils % Seg Neuts % (Manual) Lymphocytes % (Manual) Monocytes % (Manual) Basophils % (Manual) Seg Neutrophils # Seg Neutrophils # Man Lymphocytes # (Manual) Monocytes # (Manual) Eosinophils # (Manual) Basophils # (Manual) PT INR D-Dimer ABG pH POC ABG pCO2 POC ABG pO2 ABG pO2 ABG HCO3 ABG O2 Saturation ABG Base Excess ABG Hemoglobin ABG Oxyhemoglobin ABG Potassium ABG Glucose Oxyhemoglobin Carboxyhemoglobin Sodium Potassium Chloride Carbon Dioxide BUN Creatinine Glucose POC Glucose 111 H 114 H 130 H Calcium Ferritin Total Bilirubin Alkaline Phosphatase Lactate Dehydrogenase Total Creatine Kinase CK-MB (CK-2) Rel Index Troponin T C-Reactive Protein Total Protein Albumin Prealbumin LDL Cholesterol Direct Arterial Blood Glucose Arterial Blood Ionized Calcium Urine WBC (Auto) 03/30/20 03/30/20 03/30/20 11:38 14:47 14:47 WBC 19.9 H RBC Hgb 10.9 L Hct 34.4 L MCV MCH 27 L RDW 16.5 H Plt Count 441 H Lymph % (Auto) 6.4 L Lymph # (Auto) [place] # (Auto) 1.4 H Seg Neutrophils % 86.1 H Seg Neuts % (Manual) Lymphocytes % (Manual) Monocytes % (Manual) Basophils % (Manual) Seg Neutrophils # 17.1 H Seg Neutrophils # Man Lymphocytes # (Manual) Monocytes # (Manual) Eosinophils # (Manual) Basophils # (Manual) PT INR D-Dimer ABG pH POC ABG pCO2 POC ABG pO2 ABG pO2 ABG HCO3 ABG O2 Saturation ABG Base Excess ABG Hemoglobin ABG Oxyhemoglobin ABG Potassium ABG Glucose Oxyhemoglobin Carboxyhemoglobin Sodium 133 L Potassium Chloride 94.6 L Carbon Dioxide 33 H BUN Creatinine < 0.2 L Glucose 194 H POC Glucose 139 H Calcium Ferritin Total Bilirubin Alkaline Phosphatase Lactate Dehydrogenase Total Creatine Kinase CK-MB (CK-2) Rel Index Troponin T C-Reactive Protein Total Protein Albumin 2.8 L Prealbumin LDL Cholesterol Direct Arterial Blood Glucose Arterial Blood Ionized Calcium Urine WBC (Auto) 03/30/20 03/31/20 03/31/20 17:07 05:02 15:21 WBC RBC Hgb Hct MCV MCH RDW Plt Count Lymph % (Auto) Lymph # (Auto) [place] # (Auto) Seg Neutrophils % Seg Neuts % (Manual) Lymphocytes % (Manual) Monocytes % (Manual) Basophils % (Manual) Seg Neutrophils # Seg Neutrophils # Man Lymphocytes # (Manual) Monocytes # (Manual) Eosinophils # (Manual) Basophils # (Manual) PT INR D-Dimer ABG pH POC ABG pCO2 POC ABG pO2 ABG pO2 ABG HCO3 ABG O2 Saturation ABG Base Excess ABG Hemoglobin ABG Oxyhemoglobin ABG Potassium ABG Glucose Oxyhemoglobin Carboxyhemoglobin Sodium Potassium Chloride Carbon Dioxide BUN Creatinine Glucose POC Glucose 163 H 108 H 110 H Calcium Ferritin Total Bilirubin Alkaline Phosphatase Lactate Dehydrogenase Total Creatine Kinase CK-MB (CK-2) Rel Index Troponin T C-Reactive Protein Total Protein Albumin Prealbumin LDL Cholesterol Direct Arterial Blood Glucose Arterial Blood Ionized Calcium Urine WBC (Auto) 03/31/20 03/31/20 04/01/20 17:58 23:19 05:09 WBC RBC Hgb Hct MCV MCH RDW Plt Count Lymph % (Auto) Lymph # (Auto) [place] # (Auto) Seg Neutrophils % Seg Neuts % (Manual) Lymphocytes % (Manual) Monocytes % (Manual) Basophils % (Manual) Seg Neutrophils # Seg Neutrophils # Man Lymphocytes # (Manual) Monocytes # (Manual) Eosinophils # (Manual) Basophils # (Manual) PT INR D-Dimer ABG pH POC ABG pCO2 POC ABG pO2 ABG pO2 ABG HCO3 ABG O2 Saturation ABG Base Excess ABG Hemoglobin ABG Oxyhemoglobin ABG Potassium ABG Glucose Oxyhemoglobin Carboxyhemoglobin Sodium Potassium Chloride Carbon Dioxide BUN Creatinine Glucose POC Glucose 110 H 131 H 124 H Calcium Ferritin Total Bilirubin Alkaline Phosphatase Lactate Dehydrogenase Total Creatine Kinase CK-MB (CK-2) Rel Index Troponin T C-Reactive Protein Total Protein Albumin Prealbumin LDL Cholesterol Direct Arterial Blood Glucose Arterial Blood Ionized Calcium Urine WBC (Auto) 04/01/20 04/01/20 04/01/20 11:50 17:01 23:21 WBC RBC Hgb Hct MCV MCH RDW Plt Count Lymph % (Auto) Lymph # (Auto) [place] # (Auto) Seg Neutrophils % Seg Neuts % (Manual) Lymphocytes % (Manual) Monocytes % (Manual) Basophils % (Manual) Seg Neutrophils # Seg Neutrophils # Man Lymphocytes # (Manual) Monocytes # (Manual) Eosinophils # (Manual) Basophils # (Manual) PT INR D-Dimer ABG pH POC ABG pCO2 POC ABG pO2 ABG pO2 ABG HCO3 ABG O2 Saturation ABG Base Excess ABG Hemoglobin ABG Oxyhemoglobin ABG Potassium ABG Glucose Oxyhemoglobin Carboxyhemoglobin Sodium Potassium Chloride Carbon Dioxide BUN Creatinine Glucose POC Glucose 136 H 115 H 124 H Calcium Ferritin Total Bilirubin Alkaline Phosphatase Lactate Dehydrogenase Total Creatine Kinase CK-MB (CK-2) Rel Index Troponin T C-Reactive Protein Total Protein Albumin Prealbumin LDL Cholesterol Direct Arterial Blood Glucose Arterial Blood Ionized Calcium Urine WBC (Auto) 04/02/20 04/02/20 04/02/20 05:27 11:58 17:58 WBC RBC Hgb Hct MCV MCH RDW Plt Count Lymph % (Auto) Lymph # (Auto) [place] # (Auto) Seg Neutrophils % Seg Neuts % (Manual) Lymphocytes % (Manual) Monocytes % (Manual) Basophils % (Manual) Seg Neutrophils # Seg Neutrophils # Man Lymphocytes # (Manual) Monocytes # (Manual) Eosinophils # (Manual) Basophils # (Manual) PT INR D-Dimer ABG pH POC ABG pCO2 POC ABG pO2 ABG pO2 ABG HCO3 ABG O2 Saturation ABG Base Excess ABG Hemoglobin ABG Oxyhemoglobin ABG Potassium ABG Glucose Oxyhemoglobin Carboxyhemoglobin Sodium Potassium Chloride Carbon Dioxide BUN Creatinine Glucose POC Glucose 117 H 133 H 122 H Calcium Ferritin Total Bilirubin Alkaline Phosphatase Lactate Dehydrogenase Total Creatine Kinase CK-MB (CK-2) Rel Index Troponin T C-Reactive Protein Total Protein Albumin Prealbumin LDL Cholesterol Direct Arterial Blood Glucose Arterial Blood Ionized Calcium Urine WBC (Auto) 04/02/20 04/03/20 04/03/20 23:12 05:11 11:11 WBC RBC Hgb Hct MCV MCH RDW Plt Count Lymph % (Auto) Lymph # (Auto) [place] # (Auto) Seg Neutrophils % Seg Neuts % (Manual) Lymphocytes % (Manual) Monocytes % (Manual) Basophils % (Manual) Seg Neutrophils # Seg Neutrophils # Man Lymphocytes # (Manual) Monocytes # (Manual) Eosinophils # (Manual) Basophils # (Manual) PT INR D-Dimer ABG pH POC ABG pCO2 POC ABG pO2 ABG pO2 ABG HCO3 ABG O2 Saturation ABG Base Excess ABG Hemoglobin ABG Oxyhemoglobin ABG Potassium ABG Glucose Oxyhemoglobin Carboxyhemoglobin Sodium Potassium Chloride Carbon Dioxide BUN Creatinine Glucose POC Glucose 130 H 139 H 136 H Calcium Ferritin Total Bilirubin Alkaline Phosphatase Lactate Dehydrogenase Total Creatine Kinase CK-MB (CK-2) Rel Index Troponin T C-Reactive Protein Total Protein Albumin Prealbumin LDL Cholesterol Direct Arterial Blood Glucose Arterial Blood Ionized Calcium Urine WBC (Auto) 04/03/20 04/03/20 04/04/20 16:51 23:25 05:29 WBC RBC Hgb Hct MCV MCH RDW Plt Count Lymph % (Auto) Lymph # (Auto) [place] # (Auto) Seg Neutrophils % Seg Neuts % (Manual) Lymphocytes % (Manual) Monocytes % (Manual) Basophils % (Manual) Seg Neutrophils # Seg Neutrophils # Man Lymphocytes # (Manual) Monocytes # (Manual) Eosinophils # (Manual) Basophils # (Manual) PT INR D-Dimer ABG pH POC ABG pCO2 POC ABG pO2 ABG pO2 ABG HCO3 ABG O2 Saturation ABG Base Excess ABG Hemoglobin ABG Oxyhemoglobin ABG Potassium ABG Glucose Oxyhemoglobin Carboxyhemoglobin Sodium Potassium Chloride Carbon Dioxide BUN Creatinine Glucose POC Glucose 118 H 111 H 126 H Calcium Ferritin Total Bilirubin Alkaline Phosphatase Lactate Dehydrogenase Total Creatine Kinase CK-MB (CK-2) Rel Index Troponin T C-Reactive Protein Total Protein Albumin Prealbumin LDL Cholesterol Direct Arterial Blood Glucose Arterial Blood Ionized Calcium Urine WBC (Auto) 04/04/20 04/04/20 04/04/20 11:47 17:41 23:05 WBC RBC Hgb Hct MCV MCH RDW Plt Count Lymph % (Auto) Lymph # (Auto) [place] # (Auto) Seg Neutrophils % Seg Neuts % (Manual) Lymphocytes % (Manual) Monocytes % (Manual) Basophils % (Manual) Seg Neutrophils # Seg Neutrophils # Man Lymphocytes # (Manual) Monocytes # (Manual) Eosinophils # (Manual) Basophils # (Manual) PT INR D-Dimer ABG pH POC ABG pCO2 POC ABG pO2 ABG pO2 ABG HCO3 ABG O2 Saturation ABG Base Excess ABG Hemoglobin ABG Oxyhemoglobin ABG Potassium ABG Glucose Oxyhemoglobin Carboxyhemoglobin Sodium Potassium Chloride Carbon Dioxide BUN Creatinine Glucose POC Glucose 123 H 120 H 119 H Calcium Ferritin Total Bilirubin Alkaline Phosphatase Lactate Dehydrogenase Total Creatine Kinase CK-MB (CK-2) Rel Index Troponin T C-Reactive Protein Total Protein Albumin Prealbumin LDL Cholesterol Direct Arterial Blood Glucose Arterial Blood Ionized Calcium Urine WBC (Auto) 04/05/20 04/05/20 04/05/20 05:14 12:16 18:48 WBC RBC Hgb Hct MCV MCH RDW Plt Count Lymph % (Auto) Lymph # (Auto) [place] # (Auto) Seg Neutrophils % Seg Neuts % (Manual) Lymphocytes % (Manual) Monocytes % (Manual) Basophils % (Manual) Seg Neutrophils # Seg Neutrophils # Man Lymphocytes # (Manual) Monocytes # (Manual) Eosinophils # (Manual) Basophils # (Manual) PT INR D-Dimer ABG pH POC ABG pCO2 POC ABG pO2 ABG pO2 ABG HCO3 ABG O2 Saturation ABG Base Excess ABG Hemoglobin ABG Oxyhemoglobin ABG Potassium ABG Glucose Oxyhemoglobin Carboxyhemoglobin Sodium Potassium Chloride Carbon Dioxide BUN Creatinine Glucose POC Glucose 123 H 148 H 106 H Calcium Ferritin Total Bilirubin Alkaline Phosphatase Lactate Dehydrogenase Total Creatine Kinase CK-MB (CK-2) Rel Index Troponin T C-Reactive Protein Total Protein Albumin Prealbumin LDL Cholesterol Direct Arterial Blood Glucose Arterial Blood Ionized Calcium Urine WBC (Auto) 04/06/20 04/06/20 04/06/20 00:47 03:26 08:24 WBC RBC Hgb Hct MCV MCH RDW Plt Count Lymph % (Auto) Lymph # (Auto) [place] # (Auto) Seg Neutrophils % Seg Neuts % (Manual) Lymphocytes % (Manual) Monocytes % (Manual) Basophils % (Manual) Seg Neutrophils # Seg Neutrophils # Man Lymphocytes # (Manual) Monocytes # (Manual) Eosinophils # (Manual) Basophils # (Manual) PT INR D-Dimer ABG pH POC ABG pCO2 POC ABG pO2 ABG pO2 ABG HCO3 ABG O2 Saturation ABG Base Excess ABG Hemoglobin ABG Oxyhemoglobin ABG Potassium ABG Glucose Oxyhemoglobin Carboxyhemoglobin Sodium Potassium Chloride Carbon Dioxide BUN Creatinine Glucose POC Glucose 129 H 134 H 131 H Calcium Ferritin Total Bilirubin Alkaline Phosphatase Lactate Dehydrogenase Total Creatine Kinase CK-MB (CK-2) Rel Index Troponin T C-Reactive Protein Total Protein Albumin Prealbumin LDL Cholesterol Direct Arterial Blood Glucose Arterial Blood Ionized Calcium Urine WBC (Auto) 04/06/20 04/06/20 04/06/20 11:16 16:27 23:01 WBC RBC Hgb Hct MCV MCH RDW Plt Count Lymph % (Auto) Lymph # (Auto) [place] # (Auto) Seg Neutrophils % Seg Neuts % (Manual) Lymphocytes % (Manual) Monocytes % (Manual) Basophils % (Manual) Seg Neutrophils # Seg Neutrophils # Man Lymphocytes # (Manual) Monocytes # (Manual) Eosinophils # (Manual) Basophils # (Manual) PT INR D-Dimer ABG pH POC ABG pCO2 POC ABG pO2 ABG pO2 ABG HCO3 ABG O2 Saturation ABG Base Excess ABG Hemoglobin ABG Oxyhemoglobin ABG Potassium ABG Glucose Oxyhemoglobin Carboxyhemoglobin Sodium Potassium Chloride Carbon Dioxide BUN Creatinine Glucose POC Glucose 131 H 107 H 125 H Calcium Ferritin Total Bilirubin Alkaline Phosphatase Lactate Dehydrogenase Total Creatine Kinase CK-MB (CK-2) Rel Index Troponin T C-Reactive Protein Total Protein Albumin Prealbumin LDL Cholesterol Direct Arterial Blood Glucose Arterial Blood Ionized Calcium Urine WBC (Auto) 04/07/20 04/07/20 04/07/20 05:24 12:41 17:40 WBC RBC Hgb Hct MCV MCH RDW Plt Count Lymph % (Auto) Lymph # (Auto) [place] # (Auto) Seg Neutrophils % Seg Neuts % (Manual) Lymphocytes % (Manual) Monocytes % (Manual) Basophils % (Manual) Seg Neutrophils # Seg Neutrophils # Man Lymphocytes # (Manual) Monocytes # (Manual) Eosinophils # (Manual) Basophils # (Manual) PT INR D-Dimer ABG pH POC ABG pCO2 POC ABG pO2 ABG pO2 ABG HCO3 ABG O2 Saturation ABG Base Excess ABG Hemoglobin ABG Oxyhemoglobin ABG Potassium ABG Glucose Oxyhemoglobin Carboxyhemoglobin Sodium Potassium Chloride Carbon Dioxide BUN Creatinine Glucose POC Glucose 125 H 145 H 123 H Calcium Ferritin Total Bilirubin Alkaline Phosphatase Lactate Dehydrogenase Total Creatine Kinase CK-MB (CK-2) Rel Index Troponin T C-Reactive Protein Total Protein Albumin Prealbumin LDL Cholesterol Direct Arterial Blood Glucose Arterial Blood Ionized Calcium Urine WBC (Auto) 04/07/20 04/08/20 04/08/20 23:22 05:40 11:29 WBC RBC Hgb Hct MCV MCH RDW Plt Count Lymph % (Auto) Lymph # (Auto) [place] # (Auto) Seg Neutrophils % Seg Neuts % (Manual) Lymphocytes % (Manual) Monocytes % (Manual) Basophils % (Manual) Seg Neutrophils # Seg Neutrophils # Man Lymphocytes # (Manual) Monocytes # (Manual) Eosinophils # (Manual) Basophils # (Manual) PT INR D-Dimer ABG pH POC ABG pCO2 POC ABG pO2 ABG pO2 ABG HCO3 ABG O2 Saturation ABG Base Excess ABG Hemoglobin ABG Oxyhemoglobin ABG Potassium ABG Glucose Oxyhemoglobin Carboxyhemoglobin Sodium Potassium Chloride Carbon Dioxide BUN Creatinine Glucose POC Glucose 133 H 125 H 116 H Calcium Ferritin Total Bilirubin Alkaline Phosphatase Lactate Dehydrogenase Total Creatine Kinase CK-MB (CK-2) Rel Index Troponin T C-Reactive Protein Total Protein Albumin Prealbumin LDL Cholesterol Direct Arterial Blood Glucose Arterial Blood Ionized Calcium Urine WBC (Auto) 04/08/20 17:43 WBC RBC Hgb Hct MCV MCH RDW Plt Count Lymph % (Auto) Lymph # (Auto) [place] # (Auto) Seg Neutrophils % Seg Neuts % (Manual) Lymphocytes % (Manual) Monocytes % (Manual) Basophils % (Manual) Seg Neutrophils # Seg Neutrophils # Man Lymphocytes # (Manual) Monocytes # (Manual) Eosinophils # (Manual) Basophils # (Manual) PT INR D-Dimer ABG pH POC ABG pCO2 POC ABG pO2 ABG pO2 ABG HCO3 ABG O2 Saturation ABG Base Excess ABG Hemoglobin ABG Oxyhemoglobin ABG Potassium ABG Glucose Oxyhemoglobin Carboxyhemoglobin Sodium Potassium Chloride Carbon Dioxide BUN Creatinine Glucose POC Glucose 123 H Calcium Ferritin Total Bilirubin Alkaline Phosphatase Lactate Dehydrogenase Total Creatine Kinase CK-MB (CK-2) Rel Index Troponin T C-Reactive Protein Total Protein Albumin Prealbumin LDL Cholesterol Direct Arterial Blood Glucose Arterial Blood Ionized Calcium Urine WBC (Auto) Chest x-ray: report reviewed, image reviewed Additional Studies: CHEST 1 VIEW 03/28/20 INDICATION: reevaluate infiltrates given spike in temp. COMPARISON: 03/12/2020 FINDINGS: Support devices: Tracheostomy is in good position. The nasogastric tube has been removed. Heart: Within normal limits. Lungs/Pleura: No acute air space or interstitial disease. Minor lingular infiltrate or segmental atelectasis has resolved. No pleural effusion or pneumothorax. Additional findings: None. IMPRESSION: No acute findings. Allied health notes reviewed: RT
[2020-04-08] MEDS: ENOXAPARIN 40 MG/0.4 ML INJ SUB-Q SCH (22:59)
[2020-04-08] MEDS: ZOLPIDEM 5 MG TAB PO PRN (22:59)
[2020-04-08] MEDS: SENNOSIDES 8.6 MG TAB PO SCH (23:00)
[2020-04-09] MEDS ORDERED: SODIUM CHLORIDE 0.9% 250ML 250 ML IV ONE ×2 (01:21→05:25)
[2020-04-09] MEDS ORDERED: SODIUM CHLORIDE 0.9% 500 ML 500 ML IV ONE (03:27)
[2020-04-09] MEDS: SODIUM HYPOCHLORITE, DAKIN'S 1/2 STRENGTH (0.25%) 473 ML TOPICAL SOLN TP SCH ×2 (05:25→10:00)
[2020-04-09] MEDS: GLYCOPYRROLATE 1 MG TAB PO SCH ×3 (08:42→21:19)
[2020-04-09] MEDS: MORPHINE 2 MG/1 ML INJ IV PRN ×3 (08:42→21:13)
[2020-04-09] MEDS: BACLOFEN 10 MG TAB PO SCH ×2 (09:59→21:13)
[2020-04-09] MEDS: METOPROLOL TARTRATE 25 MG TAB PO SCH ×2 (09:59→21:14)
[2020-04-09] MEDS: DOCUSATE SODIUM 100 MG/10 ML ORAL LIQD FEEDTUBE SCH ×2 (09:59→21:13)
[2020-04-09] MEDS: PREGABALIN 75 MG CAP PO SCH ×2 (09:59→21:14)
[2020-04-09] MEDS: TAMSULOSIN 0.4 MG CAP PO SCH (09:59)
[2020-04-09] MEDS: LANSOPRAZOLE 30 MG SOLUTAB FEEDTUBE SCH (09:59)
[2020-04-09] MEDS: LIDOCAINE 5% 1 EACH PATCH TD SCH (10:02)
--- NOTE | 2020-04-09 15:38 | Progress Note ---
Assessment and Plan The high probability OF a clinically significant sudden or life-threatening deterioration of the cardiorespiratory system and endocrine system required my full and direct attention, intervention and postoperative management. The aggregate critical care time was 32 minutes. The time is in addition to time spent performing reported procedures but includes the followin: Data review and interpretation 2: Patient assessment and monitoring of vital signs 3: Documentation 4:: Medication orders and management Assessment and Plan Assessment and Plan --Acute hypoxic hypercapnic respiratory failure; Trach to vent --ALS - Stable --Elevated D-dimers; CTA chest, lower extremity venous Doppler both are negative Lovenox DVT prophylaxis --Bilateral pneumonia; probably community-acquired Resolved --Sepsis secondary to pneumonia Resolved --Elevated troponin Likely type II [place] Cardiology follow up at discharge ---Fever Resolved Complete antibiotics --DVT prophylaxis; Lovenox Subjective Date of service: 04/09/20 Principal diagnosis: Ac on Ch Hypercapnic & hypoxemic Resp Failure; Severe Sepsis; Jamar PNA; ALS Interval history: 59-year-old male patient with significant past medical history of ALS, presented to ED with worsening shortness of breath since the morning 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 EMS arrived, patient had O2 sats in the 80s. EMS attempted to place patient on their CPAP machine, however patient did not tolerate. Patient was admitted to the ICU with diagnosis of acute hypoxic respiratory failure and placed on BiPAP. Patient initially tolerated but later deteriorated with respiratory status. CTA chest showed no PE but significant for bilateral pneumonia. Doppler ultrasound also negative for DVT. COVID-19 test ordered. Due to persistent hypoxia, patient was intubated on 02/26/2020 at 1500. Patient now on mechanical ventilation in the ICU. 02/26/2020. Blood cultures are negative x48 hours and Covid testing negative as well. Continue antibiotics per ID recommendations for community-acquired bilateral pneumonia. Cardiology consultation for elevated troponin. Check echocardiogram. 02/27/2020. Events of yesterday noted with asystole following V. fib arrest. Patient currently on AC mode rate 20, tidal volume 400, FiO2 50% and a PEEP of 6. Follow-up echocardiogram for elevated troponin. Cardiology suspects NSTEMI Type 2 in the setting of acute resp failure. Chest CTA and BLE Dopplers neg. we will discontinue Decadron given the Covid PCR is negative. 02/25/2020. CTA of the chest reveals no PE but does illustrate the bilateral pneumonia. Doppler ultrasound also negative for DVT. Blood cultures are p ending. Await COVID-19 testing. Patient currently requiring BiPAP IPAP 24/EPAP 6 with FiO2 of 25%. Continue O2 and BiPAP as clinically indicated. ID and pulmonary consulted. 02/26/2020. Blood cultures are negative x48 hours and Covid testing negative as well. Continue antibiotics per ID recommendations for community-acquired bilateral pneumonia. Cardiology consultation for elevated troponin. Check echocardiogram. 02/27/2020. Events of yesterday noted with asystole following V. fib arrest. Patient currently on AC mode rate 20, tidal volume 400, FiO2 50% and a PEEP of 6. Follow-up echocardiogram for elevated troponin. Cardiology suspects NSTEMI Type 2 in the setting of acute resp failure. Chest CTA and BLE Dopplers neg. we will discontinue Decadron given the Covid PCR is negative. 02/28/2020. I spoke with the sister Felisa Eli who is the power of admitted attorneys regarding advanced directives and she instructed me that she would like to continue with aggressive care at this time. I informed her of the guarded prognosis and high mortality/morbidity and she voiced understanding. Patient currently with AC mode ventilation rate 18, tidal volume 400, FiO2 40% and a PEEP of 6. Continue antibiotics for pneumonia. ID previously consulted. Also consult neurology with regards to ALS. 02/29/2020; patient is intubated and on CPAP patient is alert and oriented. Patient has ALS. Dr. Álvarez spoke with his sister and she wants aggressive care. Continue antibiotics for pneumonia. Neurology consulted for ALS. Prognosis poor 03/01/2020; patient is intubated and on CPAP, patient is alert and oriented. I spoke with his 2 sisters about the management plan. 03/02/2020; patient is intubated and on CPAP. Patient was alert and oriented. I spoke with Dr. mohr and he thinks patient may need mechanical ventilation, likely his disease progressed. Dr. Flowers did debridement this morning. 03/03/2020; patient is intubated and on CPAP, patient was on trilogy and BiPAP a t home. Patient has ALS. on spontaneous breathing trial. Patient is alert and oriented but quadriplegic. Patient has severe bilateral pneumonia and is on cefepime and Vanco, ID is following. Patient has sacral decubitus ulcer and debridement was done by Dr. Flowers and there is no osteomyelitis. 03/05. Patient still on broad-spectrum antibiotics. Status post sacral decubitus ulcer debridements-no osteomyelitis. Patient is on AC 25/400/30% PEEP 5. No blood gas results today. 03/06. Plan for tracheostomy by surgery. Still remains intubated. Labs reviewed-sodium 150. Started on free water 200 every 8hr. trend sodium. 03/07: s/p trach placement today, patient placed back on mechanical ventilation with trach. Plan to resume tube feeding with NG tube. Continue to monitor vitals, monitor BMP. 03/08: Patient noted to have distended abdomen with low urinary output. Obtain bladder scan rule out urine retention, UA and urine culture, continue to follow clinically. 03/09: Patient noted to have low blood pressure with SBP as low as 70s. Ordered for 500 mils normal saline bolus. CT abdomen showed bladder outlet obstruction, urology consulted. 03/10: placed on drake by urology o/n, improved urine outpt. cont to monitor BMP. resuded TF - cont free water with TF. wean off from vent as tolerated. 03/11: Vitals stable. cont TF, wean off from vent as tolerated. start on 1/2 NS for hypernatremia - follow BMP 03/12: wean off vent as tolerated, plan for speech eval, cont Tf for now, cont iv fluid 03/13: unable to wean off from vent, unable to do speech therapy eval. will need PEG tube, cont supportive care for now, cont NG tube feeding 03/14: consulted GI for PEg placemnet, cont supportive care. remains on vent at night 03/15: Discussed with GI, plan for PEG tube placement possibly tomorrow. Continue supportive care and wean off from vent as tolerated. Hold Lovenox dose tonight. 03/16: family didnot consent for PEG placement yesterday. I spoke with the [employer] today and she is now agreeable for PEG tube. I explained the necessity of the procedure with RN to the patient also and he nodded started on tube feeding, for the procedure. will cont supportive care. planned for PEG tube placement tomorrow. 03/17: s/p PEG placement today, patient tolerated well, cont supportive care 03/18: Started on tube feeding with new PEG tube, continue to wean off vent as tolerated 03/19: cont to monitor with supportive care, wean off vent as tolerated 03/20: Continue to wean off vent as tolerated -but failing weaning trial. Still requiring vent support at night. Currently on PEG tube for tube feed. 03/21. Pt with PSV trials with FiO@ 30%, PEEP 6, PS 10. Currently on PEG tube for tube feed. 03/22/2020. Continue PSV trials per pulmonary. Continue bronchodilators. Patient tolerating tube feedings. Continue Robinul for secretion control. 03/23/2020. Continue PSV trials per pulmonary. Continue bronchodilators. Continue Scopolamine and Robinul for secretion control. Trach care/airway management. Mobility protocols for pressure ulcer prophylaxis. LTAC evaluation per case management 03/24/2020. Continue PSV trials with current settings pressure support 10, PEEP 6 and FiO2 30%. Continue bronchodilators/nebulizer. Continue Scopolamine and Robinul for secretion control. Trach care/airway management. Mobility protocols for pressure ulcer prophylaxis. LTAC evaluation per case management 03/25/2020. Pulmonary to proceed with T-piece trials today. Continue bronchodilators/nebulizer. Continue Scopolamine and Robinul for secretion control. Trach care/airway management. Mobility protocols for pressure ulcer prophylaxis. 03/26/2020. Patient currently with PSV 10/6 at FiO2 of 30%. Continue weaning and T-piece trials per protocol. Continue bronchodilators/nebulizer. Continue Scopolamine and Robinul for secretion control. Trach care/airway management. Mobility protocols for pressure ulcer prophylaxis. Continue tube feeding with aspiration precautions. 03/27/2020. Patient currently with PSV 10/6 at FiO2 of 30%. Continue weaning and T-piece trials per protocol. Continue bronchodilators/nebulizer. Continue Scopolamine and Robinul for secretion control. Trach care/airway management. Mobility protocols for pressure ulcer prophylaxis. Continue tube feeding with aspiration precautions. 03/28. Had temp 100.7F. He has been off antibiotics. Will send blood culture, ua, urine culture and chest xray. Had chest pain overnight and trop was elevated as well. Cardiology to evaluate 03/29. Has back pain due to position. He mentions his chest pain is positional. Has no other complaints. Still on mechanical ventilation 03/30. No chest pain today. Labs reviewed. Discussed chest pain with cardiology and team advised no further work up at this time. Can follow up with cardiology in the office after hospitalization 03/31. Lidocaine patch for lower back pain. 04/01. Discharge planning underway. CM notes reviewed. Discussed with daughter 04/02. CM trying to arrange discharge. Continue PSV trials. Discussed with patients significant other 04/04/2020; CM is working for discharge arrangement. Continue PSV trials. 04/05/2020; patient was seen and evaluated this morning and no change from baseline. Continue with PSV trials. Follow with medical sales consultant for discharge planning. 04/06/2020;patient was seen and evaluated this morning and no change from baseline. Continue with PSV trials. Follow with medical sales consultant for discharge planning. 04/07/2020; patient was seen and evaluated this morning and no change from baseline. Continue with PSV trials. Follow with medical sales consultant for discharge planning. 04/08/2020; patient is vent dependent. Discharge is per medical sales consultant. 04/09/2019 patient is vent dependent, possible LTAC placement History Interval history: Patient was seen and evaluated this morning Patient is intubated, on trach Patient is awake Objective - Constitutional Vitals: Vital Signs - 12hr 04/09/20 04/09/20 04/09/20 03:45 04:00 04:06 Temperature 99.0 F Pulse Rate 115 H 112 H 114 H Respiratory 23 24 Rate Blood Pressure 77/50 82/48 82/48 O2 Sat by Pulse 98 Oximetry O2 Sat by Pulse 99 Oximetry [ Assessment] 04/09/20 04/09/20 04/09/20 04:26 04:30 04:45 Temperature Pulse Rate 116 H 116 H 118 H Respiratory 20 20 23 Rate Blood Pressure 79/49 77/49 O2 Sat by Pulse 98 Oximetry O2 Sat by Pulse Oximetry [ Assessment] 04/09/20 04/09/20 04/09/20 05:00 05:15 05:30 Temperature Pulse Rate 118 H 114 H 117 H Respiratory 24 23 24 Rate Blood Pressure 77/47 76/51 80/54 O2 Sat by Pulse Oximetry O2 Sat by Pulse Oximetry [ Assessment] 04/09/20 04/09/20 04/09/20 05:45 06:00 06:15 Temperature Pulse Rate 115 H 113 H 112 H Respiratory 24 26 H 26 H Rate Blood Pressure 80/56 79/53 86/59 O2 Sat by Pulse Oximetry O2 Sat by Pulse Oximetry [ Assessment] 04/09/20 04/09/20 04/09/20 06:30 06:45 07:00 Temperature Pulse Rate 115 H 114 H 112 H Respiratory 26 H 15 22 Rate Blood Pressure 82/55 95/66 84/55 O2 Sat by Pulse Oximetry O2 Sat by Pulse Oximetry [ Assessment] 04/09/20 04/09/20 04/09/20 07:15 07:17 07:30 Temperature Pulse Rate 118 H 119 H 119 H Respiratory 22 27 H 20 Rate Blood Pressure 93/60 93/60 111/73 O2 Sat by Pulse 99 99 97 Oximetry O2 Sat by Pulse Oximetry [ Assessment] 04/09/20 04/09/20 04/09/20 07:45 08:00 08:15 Temperature 99.0 F Pulse Rate 123 H 125 H 125 H Respiratory 27 H 26 H 26 H Rate Blood Pressure 110/80 113/77 117/79 O2 Sat by Pulse 99 97 Oximetry O2 Sat by Pulse Oximetry [ Assessment] 04/09/20 04/09/20 04/09/20 08:30 08:45 09:00 Temperature Pulse Rate 126 H 127 H 131 H Respiratory 30 H 34 H 17 Rate Blood Pressure 116/78 123/84 120/83 O2 Sat by Pulse 90 Oximetry O2 Sat by Pulse Oximetry [ Assessment] 04/09/20 04/09/20 04/09/20 09:15 09:30 09:45 Temperature Pulse Rate 132 H 130 H 126 H Respiratory 27 H 20 19 Rate Blood Pressure 113/78 116/77 112/81 O2 Sat by Pulse 93 94 94 Oximetry O2 Sat by Pulse Oximetry [ Assessment] 04/09/20 04/09/20 04/09/20 09:59 10:00 10:15 Temperature Pulse Rate 132 H 131 H 133 H Respiratory 21 17 Rate Blood Pressure 112/81 111/77 117/82 O2 Sat by Pulse 96 95 Oximetry O2 Sat by Pulse Oximetry [ Assessment] 04/09/20 04/09/20 04/09/20 10:30 10:45 11:00 Temperature Pulse Rate 131 H 116 H 111 H Respiratory 19 24 16 Rate Blood Pressure 108/80 98/67 102/73 O2 Sat by Pulse 98 98 Oximetry O2 Sat by Pulse Oximetry [ Assessment] 04/09/20 04/09/20 04/09/20 11:04 11:15 11:30 Temperature Pulse Rate 114 H 113 H 120 H Respiratory 13 25 H Rate Blood Pressure 102/73 105/73 95/63 O2 Sat by Pulse 98 96 Oximetry O2 Sat by Pulse Oximetry [ Assessment] 04/09/20 04/09/20 11:45 12:00 Temperature 99.1 F Pulse Rate 118 H 122 H Respiratory 19 15 Rate Blood Pressure 100/66 102/59 O2 Sat by Pulse 97 96 Oximetry O2 Sat by Pulse Oximetry [ Assessment] General appearance: Present: no acute distress, well-nourished - EENT Eyes: PERRL, EOM intact ENT: hearing intact, clear oral mucosa Ears: bilateral: normal - Neck Neck: supple, normal ROM - Respiratory Respiratory effort: normal Respiratory: bilateral: CTA - Breasts Breasts: normal - Cardiovascular Heart rate: 78 Rhythm: regular Heart Sounds: Present: S1 & S2. Absent: gallop, rub Extremities: pulses intact, No edema, normal color, Full ROM - Gastrointestinal General gastrointestinal: Present: soft, non-tender, non-distended, normal bowel sounds - Genitourinary Male genitourinary: normal - Integumentary Integumentary: clear, warm, dry - Musculoskeletal Musculoskeletal: 1, strength equal bilaterally - Neurologic Neurologic: moves all extremities - Psychiatric Psychiatric: memory intact, appropriate mood/affect, intact judgment & insight - Labs CBC & Chem 7: 03/30/20 14:47 03/30/20 14:47 Labs: Abnormal lab results 04/08/20 04/09/20 04/09/20 Range/Units 17:43 05:47 12:22 POC Glucose 123 H 108 H 116 H (70-105) mg/dL HEART Score - HEART Score Troponin: Troponin T 0.090 ng/mL (0.00-0.029) H 03/28/20 17:17
[2020-04-09] MEDS: ENOXAPARIN 40 MG/0.4 ML INJ SUB-Q SCH (21:12)
[2020-04-09] MEDS: ZOLPIDEM 5 MG TAB PO PRN (21:14)
[2020-04-09] MEDS: SENNOSIDES 8.6 MG TAB PO SCH (21:14)
[2020-04-09] MEDS: ALPRAZolam 0.5 MG TAB PO PRN (21:14)
--- NOTE | 2020-04-09 21:31 | Progress Note ---
Assessment and Plan Patient awake. weak. Resting on assist control mechanical ventilation, rate 10, Tidal volume 400, FIO2 25%, PEEP 6 and O2 saturation running 93%. Patient running low grade temparature and has leukocytosis. Chest xray done 03/28/20 reported no acute findings. Patient guevara virus negative. I spent critical care time of 35 minutes, review the chart, examining the patient,Review chest xray, labs, talking to the nursing staff and respiratory therapist and work out plan of tratment in this critically ill patient. - Patient Problems (1) Acute on chronic respiratory failure with hypoxia and hypercapnia Current Visit: Yes Status: Acute Plan to address problem: Patient is on assist control mechanical ventilation, rate 10, tidal volume 400, FIO2 25%, PEEP 6. Albuterol inhaler 2 puffs po qid. Continue S/C Lovenox. Continue prevacid. (2) Bleeding from wound Current Visit: Yes Status: Acute Plan to address problem: Management primary care , surgery and wound care. (3) Elevated d-dimer Current Visit: Yes Status: Acute Plan to address problem: Patients venous doppler studies of legs, CTA chest reported VTE. Patient is on S/C Lovenox 40 mg qd. (4) Elevated troponin Current Visit: Yes Status: Acute Plan to address problem: Management as per primary care and cardiology (5) NSTEMI (non-ST elevated myocardial infarction) Current Visit: Yes Status: Acute Plan to address problem: Management as per cardiology. (6) Pneumonia Current Visit: Yes Status: Acute Qualifiers: Laterality: bilateral Plan to address problem: Patient was treated with ceftriaxone, zosyn and zithromax. Patient afebrile. Repeat chest xray 03/28/20 reported no acute fingings. Subjective Date of service: 04/09/20 Principal diagnosis: Ac on Ch Hypercapnic & hypoxemic Resp Failure; Severe Sepsis; Jamar PNA; ALS Interval history: Patient awake. weak. Resting on assist control mechanical ventilation, rate 10, Tidal volume 400, FIO2 25%, PEEP 6 and O2 saturation running 93%. Patient running low grade temparature and has leukocytosis. Chest xray done 03/28/20 reported no acute findings. Patient guevara virus negative. Objective Vital Signs - 12hr 04/09/20 04/09/20 04/09/20 09:45 09:59 10:00 Temperature Pulse Rate 126 H 132 H 131 H Respiratory 19 21 Rate Blood Pressure 112/81 112/81 111/77 O2 Sat by Pulse 94 96 Oximetry O2 Sat by Pulse Oximetry [ Assessment] 04/09/20 04/09/20 04/09/20 10:15 10:30 10:45 Temperature Pulse Rate 133 H 131 H 116 H Respiratory 17 19 24 Rate Blood Pressure 117/82 108/80 98/67 O2 Sat by Pulse 95 98 98 Oximetry O2 Sat by Pulse Oximetry [ Assessment] 04/09/20 04/09/20 04/09/20 11:00 11:04 11:15 Temperature Pulse Rate 111 H 114 H 113 H Respiratory 16 13 Rate Blood Pressure 102/73 102/73 105/73 O2 Sat by Pulse 98 Oximetry O2 Sat by Pulse Oximetry [ Assessment] 04/09/20 04/09/20 04/09/20 11:30 11:45 12:00 Temperature 99.1 F Pulse Rate 120 H 118 H 122 H Respiratory 25 H 19 15 Rate Blood Pressure 95/63 100/66 102/59 O2 Sat by Pulse 96 97 96 Oximetry O2 Sat by Pulse Oximetry [ Assessment] 04/09/20 04/09/20 04/09/20 12:15 12:30 12:45 Temperature Pulse Rate 120 H 120 H 114 H Respiratory 22 19 11 L Rate Blood Pressure 90/59 96/58 99/63 O2 Sat by Pulse 97 Oximetry O2 Sat by Pulse Oximetry [ Assessment] 04/09/20 04/09/20 04/09/20 13:00 13:15 13:30 Temperature Pulse Rate 112 H 117 H 118 H Respiratory 12 24 16 Rate Blood Pressure 99/63 96/60 97/62 O2 Sat by Pulse 94 97 97 Oximetry O2 Sat by Pulse Oximetry [ Assessment] 04/09/20 04/09/20 04/09/20 13:45 14:00 14:15 Temperature Pulse Rate 116 H 118 H 119 H Respiratory 18 19 26 H Rate Blood Pressure 101/66 104/62 96/62 O2 Sat by Pulse 96 Oximetry O2 Sat by Pulse Oximetry [ Assessment] 04/09/20 04/09/20 04/09/20 14:30 14:45 15:00 Temperature Pulse Rate 123 H 128 H 126 H Respiratory 16 26 H 23 Rate Blood Pressure 97/62 101/63 91/58 O2 Sat by Pulse 97 96 Oximetry O2 Sat by Pulse 97 Oximetry [ Assessment] 04/09/20 04/09/20 04/09/20 15:15 15:30 15:38 Temperature Pulse Rate 124 H 125 H 127 H Respiratory 17 21 Rate Blood Pressure 98/64 102/64 102/64 O2 Sat by Pulse 96 96 98 Oximetry O2 Sat by Pulse Oximetry [ Assessment] 04/09/20 04/09/20 04/09/20 15:45 16:00 16:15 Temperature 99.1 F Pulse Rate 126 H 125 H 127 H Respiratory 16 19 22 Rate Blood Pressure 97/62 94/60 110/74 O2 Sat by Pulse 96 88 95 Oximetry O2 Sat by Pulse Oximetry [ Assessment] 04/09/20 04/09/20 04/09/20 16:30 16:45 17:00 Temperature Pulse Rate 126 H 122 H 119 H Respiratory 21 21 18 Rate Blood Pressure 97/66 96/63 101/66 O2 Sat by Pulse 93 94 Oximetry O2 Sat by Pulse Oximetry [ Assessment] 04/09/20 04/09/20 04/09/20 17:15 17:30 17:45 Temperature Pulse Rate 116 H 123 H 124 H Respiratory 18 20 24 Rate Blood Pressure 106/71 99/65 94/62 O2 Sat by Pulse 92 95 Oximetry O2 Sat by Pulse Oximetry [ Assessment] 04/09/20 04/09/20 04/09/20 18:00 18:15 18:30 Temperature Pulse Rate 120 H 121 H 123 H Respiratory 23 23 21 Rate Blood Pressure 100/66 101/66 99/65 O2 Sat by Pulse 96 96 Oximetry O2 Sat by Pulse Oximetry [ Assessment] 04/09/20 04/09/20 04/09/20 18:45 18:57 19:00 Temperature Pulse Rate 122 H 122 H 122 H Respiratory 20 18 Rate Blood Pressure 94/62 103/67 O2 Sat by Pulse 95 96 Oximetry O2 Sat by Pulse Oximetry [ Assessment] 04/09/20 04/09/20 04/09/20 19:15 19:30 20:00 Temperature 100.4 F H Pulse Rate 119 H 118 H Respiratory 22 23 Rate Blood Pressure 98/66 94/64 O2 Sat by Pulse 97 97 Oximetry O2 Sat by Pulse Oximetry [ Assessment] 04/09/20 04/09/20 20:51 21:14 Temperature Pulse Rate 120 H 117 H Respiratory Rate Blood Pressure 95/63 102/69 O2 Sat by Pulse 92 Oximetry O2 Sat by Pulse 99 Oximetry [ Assessment] Constitutional: no acute distress, alert, other (thin middle aged male with normal respiratory effort at rest on MVS) Eyes: non-icteric ENT: oropharynx moist, other (S/P Tracheostomy) Neck: supple, no lymphadenopathy, no JVD Effort: mildly labored Ascultation: Bilateral: diminished breath sounds, wheezes, rhonchi Percussion: Bilateral: not dull Cardiovascular: regular rate and rhythm, other (S1,S2, no murmurs) Gastrointestinal: normoactive bowel sounds, soft, non-tender, non-distended, other (+ distended but non tender suprapubis) Integumentary: normal, decubitus ulcer (sacral / gluteal) Extremities: no cyanosis, no edema, pulses normal, other (atrophic looking limbs) Neurologic: pupils equal and round, other (motor strength in extremities 1-2/5, awake, alert, mouths words to make needs known) Psychiatric: depressed CBC and BMP: 03/30/20 14:47 03/30/20 14:47 ABG, PT/INR, D-dimer: ABG ABG pH 7.371 (7.320-7.450) 03/08/20 12:34 POC ABG pCO2 63.1 mmHg (32.0-48.0) H 03/08/20 12:34 ABG pCO2 60.1 mm Hg 03/06/20 04:34 POC ABG pO2 90.5 mmHg (83-108) 03/08/20 12:34 ABG pO2 88.6 mm Hg (80.0-90.0) 03/06/20 04:34 POC ABG HCO3 35.7 03/08/20 12:34 ABG O2 Saturation 97.0 % (95.0-99.0) 03/06/20 04:34 PT/INR, D-dimer PT 15.6 Sec. (12.2-14.9) H 02/24/20 09:19 INR 1.21 (0.87-1.13) H 02/24/20 09:19 D-Dimer 1311.96 ng/mlDDU (0-234) H 02/24/20 09:19 Abnormal lab findings: Abnormal Labs 02/24/20 02/24/20 02/24/20 09:19 09:19 09:19 WBC 20.2 H RBC 5.05 H Hgb Hct MCV MCH RDW 15.3 H Plt Count Lymph % (Auto) Lymph # (Auto) [place] # (Auto) Seg Neutrophils % Seg Neuts % (Manual) 86.0 H Lymphocytes % (Manual) 1.0 L Monocytes % (Manual) Basophils % (Manual) Seg Neutrophils # Seg Neutrophils # Man 17.4 H Lymphocytes # (Manual) 0.2 L Monocytes # (Manual) Eosinophils # (Manual) Basophils # (Manual) PT 15.6 H INR 1.21 H D-Dimer 1311.96 H ABG pH POC ABG pCO2 POC ABG pO2 ABG pO2 ABG HCO3 ABG O2 Saturation ABG Base Excess ABG Hemoglobin ABG Oxyhemoglobin ABG Potassium ABG Glucose Oxyhemoglobin Carboxyhemoglobin Sodium 135 L Potassium 3.2 L Chloride 92.2 L Carbon Dioxide BUN 6 L Creatinine < 0.2 L Glucose 124 H POC Glucose Calcium Ferritin Total Bilirubin 2.30 H Alkaline Phosphatase 132 H Lactate Dehydrogenase Total Creatine Kinase CK-MB (CK-2) Rel Index Troponin T 0.080 H C-Reactive Protein Total Protein Albumin 3.6 L Prealbumin LDL Cholesterol Direct 41 L Arterial Blood Glucose Arterial Blood Ionized Calcium Urine WBC (Auto) 02/24/20 02/24/20 02/24/20 09:19 09:58 10:01 WBC RBC Hgb Hct MCV MCH RDW Plt Count Lymph % (Auto) Lymph # (Auto) [place] # (Auto) Seg Neutrophils % Seg Neuts % (Manual) Lymphocytes % (Manual) Monocytes % (Manual) Basophils % (Manual) Seg Neutrophils # Seg Neutrophils # Man Lymphocytes # (Manual) Monocytes # (Manual) Eosinophils # (Manual) Basophils # (Manual) PT INR D-Dimer ABG pH 7.176 L* POC ABG pCO2 POC ABG pO2 ABG pO2 91.2 H ABG HCO3 ABG O2 Saturation ABG Base Excess -4.6 L ABG Hemoglobin ABG Oxyhemoglobin ABG Potassium ABG Glucose Oxyhemoglobin 92.6 L Carboxyhemoglobin Sodium Potassium Chloride Carbon Dioxide BUN Creatinine Glucose POC Glucose Calcium Ferritin 1715.0 H Total Bilirubin Alkaline Phosphatase Lactate Dehydrogenase 303 H Total Creatine Kinase CK-MB (CK-2) Rel Index Troponin T C-Reactive Protein 26.10 H Total Protein Albumin Prealbumin LDL Cholesterol Direct Arterial Blood Glucose Arterial Blood Ionized Calcium Urine WBC (Auto) 02/24/20 02/24/20 02/24/20 11:52 13:45 19:35 WBC RBC Hgb Hct MCV MCH RDW Plt Count Lymph % (Auto) Lymph # (Auto) [place] # (Auto) Seg Neutrophils % Seg Neuts % (Manual) Lymphocytes % (Manual) Monocytes % (Manual) Basophils % (Manual) Seg Neutrophils # Seg Neutrophils # Man Lymphocytes # (Manual) Monocytes # (Manual) Eosinophils # (Manual) Basophils # (Manual) PT INR D-Dimer ABG pH 7.051 L* 7.300 L POC ABG pCO2 POC ABG pO2 ABG pO2 94.7 H 75.1 L ABG HCO3 18.0 L ABG O2 Saturation 93.5 L ABG Base Excess -6.8 L -7.8 L ABG Hemoglobin 13.2 L 11.9 L ABG Oxyhemoglobin ABG Potassium ABG Glucose Oxyhemoglobin 91.0 L 92.7 L Carboxyhemoglobin Sodium Potassium Chloride Carbon Dioxide BUN Creatinine Glucose POC Glucose Calcium Ferritin Total Bilirubin Alkaline Phosphatase Lactate Dehydrogenase Total Creatine Kinase CK-MB (CK-2) Rel Index Troponin T 0.034 H D C-Reactive Protein Total Protein Albumin Prealbumin LDL Cholesterol Direct Arterial Blood Glucose Arterial Blood Ionized Calcium Urine WBC (Auto) 02/25/20 02/25/20 02/25/20 04:00 04:00 12:26 WBC 22.9 H RBC Hgb Hct MCV 83 L MCH 27 L RDW Plt Count 468 H Lymph % (Auto) Lymph # (Auto) [place] # (Auto) Seg Neutrophils % Seg Neuts % (Manual) 89.0 H Lymphocytes % (Manual) 7.0 L Monocytes % (Manual) Basophils % (Manual) Seg Neutrophils # Seg Neutrophils # Man 20.4 H Lymphocytes # (Manual) Monocytes # (Manual) Eosinophils # (Manual) Basophils # (Manual) PT INR D-Dimer ABG pH POC ABG pCO2 POC ABG pO2 ABG pO2 ABG HCO3 ABG O2 Saturation ABG Base Excess ABG Hemoglobin ABG Oxyhemoglobin ABG Potassium 2.6 L ABG Glucose 142 H Oxyhemoglobin Carboxyhemoglobin Sodium Potassium 3.2 L Chloride Carbon Dioxide 18 L BUN Creatinine 0.2 L Glucose 114 H POC Glucose Calcium Ferritin Total Bilirubin Alkaline Phosphatase Lactate Dehydrogenase Total Creatine Kinase CK-MB (CK-2) Rel Index Troponin T C-Reactive Protein Total Protein Albumin 3.5 L Prealbumin LDL Cholesterol Direct Arterial Blood Glucose 142 H Arterial Blood Ionized Calcium Urine WBC (Auto) 02/26/20 02/26/20 02/26/20 15:58 17:00 23:43 WBC RBC Hgb Hct MCV MCH RDW Plt Count Lymph % (Auto) Lymph # (Auto) [place] # (Auto) Seg Neutrophils % Seg Neuts % (Manual) Lymphocytes % (Manual) Monocytes % (Manual) Basophils % (Manual) Seg Neutrophils # Seg Neutrophils # Man Lymphocytes # (Manual) Monocytes # (Manual) Eosinophils # (Manual) Basophils # (Manual) PT INR D-Dimer ABG pH 7.502 H POC ABG pCO2 POC ABG pO2 213.6 H ABG pO2 ABG HCO3 ABG O2 Saturation ABG Base Excess ABG Hemoglobin ABG Oxyhemoglobin 99.2 H ABG Potassium 2.9 L ABG Glucose 160 H Oxyhemoglobin Carboxyhemoglobin 0.4 L Sodium Potassium Chloride Carbon Dioxide BUN Creatinine Glucose POC Glucose 189 H 120 H Calcium Ferritin Total Bilirubin Alkaline Phosphatase Lactate Dehydrogenase Total Creatine Kinase CK-MB (CK-2) Rel Index Troponin T C-Reactive Protein Total Protein Albumin Prealbumin LDL Cholesterol Direct Arterial Blood Glucose 160 H Arterial Blood Ionized Calcium 4.5 L Urine WBC (Auto) 02/27/20 02/27/20 02/27/20 05:00 07:04 17:45 WBC RBC Hgb Hct MCV MCH RDW Plt Count Lymph % (Auto) Lymph # (Auto) [place] # (Auto) Seg Neutrophils % Seg Neuts % (Manual) Lymphocytes % (Manual) Monocytes % (Manual) Basophils % (Manual) Seg Neutrophils # Seg Neutrophils # Man Lymphocytes # (Manual) Monocytes # (Manual) Eosinophils # (Manual) Basophils # (Manual) PT INR D-Dimer ABG pH 7.524 H POC ABG pCO2 POC ABG pO2 ABG pO2 ABG HCO3 ABG O2 Saturation ABG Base Excess ABG Hemoglobin ABG Oxyhemoglobin ABG Potassium 3.0 L ABG Glucose 143 H Oxyhemoglobin Carboxyhemoglobin Sodium Potassium Chloride Carbon Dioxide BUN Creatinine Glucose POC Glucose 154 H 175 H Calcium Ferritin Total Bilirubin Alkaline Phosphatase Lactate Dehydrogenase Total Creatine Kinase CK-MB (CK-2) Rel Index Troponin T C-Reactive Protein Total Protein Albumin Prealbumin LDL Cholesterol Direct Arterial Blood Glucose 143 H Arterial Blood Ionized Calcium Urine WBC (Auto) 02/27/20 02/28/20 02/28/20 Unknown 00:21 04:15 WBC 18.7 H RBC Hgb Hct MCV MCH RDW Plt Count Lymph % (Auto) 8.7 L Lymph # (Auto) [place] # (Auto) 1.2 H Seg Neutrophils % 84.6 H Seg Neuts % (Manual) Lymphocytes % (Manual) Monocytes % (Manual) Basophils % (Manual) Seg Neutrophils # 15.9 H Seg Neutrophils # Man Lymphocytes # (Manual) Monocytes # (Manual) Eosinophils # (Manual) Basophils # (Manual) PT INR D-Dimer ABG pH POC ABG pCO2 POC ABG pO2 ABG pO2 ABG HCO3 ABG O2 Saturation ABG Base Excess ABG Hemoglobin ABG Oxyhemoglobin ABG Potassium ABG Glucose Oxyhemoglobin Carboxyhemoglobin Sodium Potassium 2.9 L* Chloride Carbon Dioxide 33 H D BUN Creatinine < 0.2 L Glucose 157 H POC Glucose 134 H Calcium Ferritin Total Bilirubin Alkaline Phosphatase Lactate Dehydrogenase Total Creatine Kinase CK-MB (CK-2) Rel Index Troponin T C-Reactive Protein Total Protein Albumin Prealbumin LDL Cholesterol Direct Arterial Blood Glucose Arterial Blood Ionized Calcium Urine WBC (Auto) 02/28/20 02/28/20 02/28/20 04:15 05:16 05:39 WBC RBC Hgb Hct MCV MCH RDW Plt Count Lymph % (Auto) Lymph # (Auto) [place] # (Auto) Seg Neutrophils % Seg Neuts % (Manual) Lymphocytes % (Manual) Monocytes % (Manual) Basophils % (Manual) Seg Neutrophils # Seg Neutrophils # Man Lymphocytes # (Manual) Monocytes # (Manual) Eosinophils # (Manual) Basophils # (Manual) PT INR D-Dimer ABG pH POC ABG pCO2 POC ABG pO2 ABG pO2 142.9 H ABG HCO3 34.1 H ABG O2 Saturation ABG Base Excess 8.3 H ABG Hemoglobin ABG Oxyhemoglobin ABG Potassium ABG Glucose Oxyhemoglobin Carboxyhemoglobin Sodium 151 H Potassium Chloride Carbon Dioxide 32 H BUN Creatinine 0.2 L Glucose 167 H POC Glucose 138 H Calcium Ferritin Total Bilirubin Alkaline Phosphatase Lactate Dehydrogenase Total Creatine Kinase CK-MB (CK-2) Rel Index Troponin T C-Reactive Protein Total Protein Albumin Prealbumin LDL Cholesterol Direct Arterial Blood Glucose Arterial Blood Ionized Calcium Urine WBC (Auto) 02/28/20 02/28/20 02/28/20 11:05 11:33 12:54 WBC RBC Hgb Hct MCV MCH RDW Plt Count Lymph % (Auto) Lymph # (Auto) [place] # (Auto) Seg Neutrophils % Seg Neuts % (Manual) Lymphocytes % (Manual) Monocytes % (Manual) Basophils % (Manual) Seg Neutrophils # Seg Neutrophils # Man Lymphocytes # (Manual) Monocytes # (Manual) Eosinophils # (Manual) Basophils # (Manual) PT INR D-Dimer ABG pH POC ABG pCO2 POC ABG pO2 ABG pO2 ABG HCO3 ABG O2 Saturation ABG Base Excess ABG Hemoglobin ABG Oxyhemoglobin ABG Potassium ABG Glucose Oxyhemoglobin Carboxyhemoglobin Sodium Potassium Chloride Carbon Dioxide BUN Creatinine Glucose POC Glucose 160 H Calcium Ferritin Total Bilirubin Alkaline Phosphatase Lactate Dehydrogenase Total Creatine Kinase CK-MB (CK-2) Rel Index Troponin T C-Reactive Protein 4.70 H Total Protein Albumin Prealbumin 0.090 L LDL Cholesterol Direct Arterial Blood Glucose Arterial Blood Ionized Calcium Urine WBC (Auto) 02/28/20 02/29/20 02/29/20 17:34 00:44 04:05 WBC 19.6 H RBC Hgb Hct MCV MCH 27 L RDW 15.4 H Plt Count Lymph % (Auto) Lymph # (Auto) [place] # (Auto) Seg Neutrophils % Seg Neuts % (Manual) 86.0 H Lymphocytes % (Manual) 7.0 L Monocytes % (Manual) Basophils % (Manual) Seg Neutrophils # Seg Neutrophils # Man 16.9 H Lymphocytes # (Manual) Monocytes # (Manual) 1.2 H Eosinophils # (Manual) Basophils # (Manual) PT INR D-Dimer ABG pH POC ABG pCO2 POC ABG pO2 ABG pO2 ABG HCO3 ABG O2 Saturation ABG Base Excess ABG Hemoglobin ABG Oxyhemoglobin ABG Potassium ABG Glucose Oxyhemoglobin Carboxyhemoglobin Sodium Potassium Chloride Carbon Dioxide BUN Creatinine Glucose POC Glucose 136 H 156 H Calcium Ferritin Total Bilirubin Alkaline Phosphatase Lactate Dehydrogenase Total Creatine Kinase CK-MB (CK-2) Rel Index Troponin T C-Reactive Protein Total Protein Albumin Prealbumin LDL Cholesterol Direct Arterial Blood Glucose Arterial Blood Ionized Calcium Urine WBC (Auto) 02/29/20 02/29/20 02/29/20 04:05 05:14 05:33 WBC RBC Hgb Hct MCV MCH RDW Plt Count Lymph % (Auto) Lymph # (Auto) [place] # (Auto) Seg Neutrophils % Seg Neuts % (Manual) Lymphocytes % (Manual) Monocytes % (Manual) Basophils % (Manual) Seg Neutrophils # Seg Neutrophils # Man Lymphocytes # (Manual) Monocytes # (Manual) Eosinophils # (Manual) Basophils # (Manual) PT INR D-Dimer ABG pH POC ABG pCO2 54.3 H POC ABG pO2 124.8 H ABG pO2 ABG HCO3 ABG O2 Saturation ABG Base Excess ABG Hemoglobin ABG Oxyhemoglobin ABG Potassium ABG Glucose 185 H Oxyhemoglobin Carboxyhemoglobin Sodium 148 H Potassium Chloride Carbon Dioxide 33 H BUN Creatinine < 0.2 L Glucose 173 H POC Glucose 152 H Calcium Ferritin Total Bilirubin Alkaline Phosphatase Lactate Dehydrogenase Total Creatine Kinase CK-MB (CK-2) Rel Index Troponin T C-Reactive Protein Total Protein Albumin Prealbumin LDL Cholesterol Direct Arterial Blood Glucose 185 H Arterial Blood Ionized Calcium Urine WBC (Auto) 03/01/20 03/01/20 03/01/20 00:00 03:45 04:33 WBC 23.1 H RBC Hgb Hct MCV MCH 27 L RDW 15.3 H Plt Count Lymph % (Auto) Lymph # (Auto) [place] # (Auto) Seg Neutrophils % Seg Neuts % (Manual) 92.0 H Lymphocytes % (Manual) 6.0 L Monocytes % (Manual) Basophils % (Manual) Seg Neutrophils # Seg Neutrophils # Man 21.3 H Lymphocytes # (Manual) Monocytes # (Manual) Eosinophils # (Manual) 0.5 H Basophils # (Manual) PT INR D-Dimer ABG pH 7.492 H POC ABG pCO2 POC ABG pO2 ABG pO2 157.1 H ABG HCO3 32.3 H ABG O2 Saturation ABG Base Excess 8.1 H ABG Hemoglobin 13.2 L ABG Oxyhemoglobin ABG Potassium ABG Glucose Oxyhemoglobin Carboxyhemoglobin Sodium Potassium Chloride Carbon Dioxide BUN Creatinine Glucose POC Glucose 109 H Calcium Ferritin Total Bilirubin Alkaline Phosphatase Lactate Dehydrogenase Total Creatine Kinase CK-MB (CK-2) Rel Index Troponin T C-Reactive Protein Total Protein Albumin Prealbumin LDL Cholesterol Direct Arterial Blood Glucose Arterial Blood Ionized Calcium Urine WBC (Auto) 03/01/20 03/01/20 03/01/20 04:33 05:29 12:32 WBC RBC Hgb Hct MCV MCH RDW Plt Count Lymph % (Auto) Lymph # (Auto) [place] # (Auto) Seg Neutrophils % Seg Neuts % (Manual) Lymphocytes % (Manual) Monocytes % (Manual) Basophils % (Manual) Seg Neutrophils # Seg Neutrophils # Man Lymphocytes # (Manual) Monocytes # (Manual) Eosinophils # (Manual) Basophils # (Manual) PT INR D-Dimer ABG pH POC ABG pCO2 POC ABG pO2 ABG pO2 ABG HCO3 ABG O2 Saturation ABG Base Excess ABG Hemoglobin ABG Oxyhemoglobin ABG Potassium ABG Glucose Oxyhemoglobin Carboxyhemoglobin Sodium 146 H Potassium Chloride Carbon Dioxide 32 H BUN Creatinine < 0.2 L Glucose 120 H POC Glucose 120 H 128 H Calcium Ferritin Total Bilirubin Alkaline Phosphatase Lactate Dehydrogenase Total Creatine Kinase CK-MB (CK-2) Rel Index Troponin T C-Reactive Protein Total Protein Albumin Prealbumin LDL Cholesterol Direct Arterial Blood Glucose Arterial Blood Ionized Calcium Urine WBC (Auto) 03/01/20 03/01/20 03/02/20 17:38 23:46 06:13 WBC RBC Hgb Hct MCV MCH RDW Plt Count Lymph % (Auto) Lymph # (Auto) [place] # (Auto) Seg Neutrophils % Seg Neuts % (Manual) Lymphocytes % (Manual) Monocytes % (Manual) Basophils % (Manual) Seg Neutrophils # Seg Neutrophils # Man Lymphocytes # (Manual) Monocytes # (Manual) Eosinophils # (Manual) Basophils # (Manual) PT INR D-Dimer ABG pH POC ABG pCO2 POC ABG pO2 ABG pO2 ABG HCO3 ABG O2 Saturation ABG Base Excess ABG Hemoglobin ABG Oxyhemoglobin ABG Potassium ABG Glucose Oxyhemoglobin Carboxyhemoglobin Sodium Potassium Chloride Carbon Dioxide BUN Creatinine Glucose POC Glucose 114 H 121 H 120 H Calcium Ferritin Total Bilirubin Alkaline Phosphatase Lactate Dehydrogenase Total Creatine Kinase CK-MB (CK-2) Rel Index Troponin T C-Reactive Protein Total Protein Albumin Prealbumin LDL Cholesterol Direct Arterial Blood Glucose Arterial Blood Ionized Calcium Urine WBC (Auto) 03/02/20 03/02/20 03/03/20 09:47 09:47 10:21 WBC 23.6 H RBC Hgb Hct MCV MCH RDW 15.3 H Plt Count 494 H Lymph % (Auto) Lymph # (Auto) [place] # (Auto) Seg Neutrophils % Seg Neuts % (Manual) 85.0 H Lymphocytes % (Manual) 6.0 L Monocytes % (Manual) Basophils % (Manual) Seg Neutrophils # Seg Neutrophils # Man 20.1 H Lymphocytes # (Manual) Monocytes # (Manual) 1.7 H Eosinophils # (Manual) Basophils # (Manual) PT INR D-Dimer ABG pH POC ABG pCO2 POC ABG pO2 ABG pO2 ABG HCO3 ABG O2 Saturation ABG Base Excess ABG Hemoglobin ABG Oxyhemoglobin ABG Potassium 3.3 L ABG Glucose 158 H Oxyhemoglobin Carboxyhemoglobin Sodium Potassium Chloride Carbon Dioxide BUN Creatinine < 0.2 L Glucose 177 H POC Glucose Calcium Ferritin Total Bilirubin Alkaline Phosphatase Lactate Dehydrogenase Total Creatine Kinase CK-MB (CK-2) Rel Index Troponin T C-Reactive Protein Total Protein Albumin Prealbumin LDL Cholesterol Direct Arterial Blood Glucose 158 H Arterial Blood Ionized Calcium Urine WBC (Auto) 03/03/20 03/04/20 03/04/20 21:30 00:00 12:23 WBC RBC Hgb Hct MCV MCH RDW Plt Count Lymph % (Auto) Lymph # (Auto) [place] # (Auto) Seg Neutrophils % Seg Neuts % (Manual) Lymphocytes % (Manual) Monocytes % (Manual) Basophils % (Manual) Seg Neutrophils # Seg Neutrophils # Man Lymphocytes # (Manual) Monocytes # (Manual) Eosinophils # (Manual) Basophils # (Manual) PT INR D-Dimer ABG pH 7.328 L POC ABG pCO2 POC ABG pO2 ABG pO2 68.4 L ABG HCO3 35.0 H ABG O2 Saturation 93.9 L ABG Base Excess 6.8 H ABG Hemoglobin 12.7 L ABG Oxyhemoglobin ABG Potassium ABG Glucose Oxyhemoglobin 91.9 L Carboxyhemoglobin Sodium Potassium Chloride Carbon Dioxide BUN Creatinine Glucose POC Glucose 187 H 163 H Calcium Ferritin Total Bilirubin Alkaline Phosphatase Lactate Dehydrogenase Total Creatine Kinase CK-MB (CK-2) Rel Index Troponin T C-Reactive Protein Total Protein Albumin Prealbumin LDL Cholesterol Direct Arterial Blood Glucose Arterial Blood Ionized Calcium Urine WBC (Auto) 03/04/20 03/04/20 03/05/20 18:15 21:30 06:02 WBC RBC Hgb Hct MCV MCH RDW Plt Count Lymph % (Auto) Lymph # (Auto) [place] # (Auto) Seg Neutrophils % Seg Neuts % (Manual) Lymphocytes % (Manual) Monocytes % (Manual) Basophils % (Manual) Seg Neutrophils # Seg Neutrophils # Man Lymphocytes # (Manual) Monocytes # (Manual) Eosinophils # (Manual) Basophils # (Manual) PT INR D-Dimer ABG pH 7.297 L POC ABG pCO2 POC ABG pO2 ABG pO2 ABG HCO3 41.0 H ABG O2 Saturation ABG Base Excess 11.0 H ABG Hemoglobin 13.1 L ABG Oxyhemoglobin ABG Potassium ABG Glucose Oxyhemoglobin 94.5 L Carboxyhemoglobin Sodium Potassium Chloride Carbon Dioxide BUN Creatinine Glucose POC Glucose 192 H 127 H Calcium Ferritin Total Bilirubin Alkaline Phosphatase Lactate Dehydrogenase Total Creatine Kinase CK-MB (CK-2) Rel Index Troponin T C-Reactive Protein Total Protein Albumin Prealbumin LDL Cholesterol Direct Arterial Blood Glucose Arterial Blood Ionized Calcium Urine WBC (Auto) 03/05/20 03/05/20 03/06/20 12:09 16:42 00:24 WBC RBC Hgb Hct MCV MCH RDW Plt Count Lymph % (Auto) Lymph # (Auto) [place] # (Auto) Seg Neutrophils % Seg Neuts % (Manual) Lymphocytes % (Manual) Monocytes % (Manual) Basophils % (Manual) Seg Neutrophils # Seg Neutrophils # Man Lymphocytes # (Manual) Monocytes # (Manual) Eosinophils # (Manual) Basophils # (Manual) PT INR D-Dimer ABG pH POC ABG pCO2 POC ABG pO2 ABG pO2 ABG HCO3 ABG O2 Saturation ABG Base Excess ABG Hemoglobin ABG Oxyhemoglobin ABG Potassium ABG Glucose Oxyhemoglobin Carboxyhemoglobin Sodium Potassium Chloride Carbon Dioxide BUN Creatinine Glucose POC Glucose 147 H 114 H 134 H Calcium Ferritin Total Bilirubin Alkaline Phosphatase Lactate Dehydrogenase Total Creatine Kinase CK-MB (CK-2) Rel Index Troponin T C-Reactive Protein Total Protein Albumin Prealbumin LDL Cholesterol Direct Arterial Blood Glucose Arterial Blood Ionized Calcium Urine WBC (Auto) 03/06/20 03/06/20 03/06/20 04:34 05:53 06:08 WBC 25.4 H RBC Hgb 10.5 L Hct 32.7 L MCV MCH 27 L RDW 15.3 H Plt Count 634 H Lymph % (Auto) Lymph # (Auto) [place] # (Auto) Seg Neutrophils % Seg Neuts % (Manual) 88.0 H Lymphocytes % (Manual) 2.0 L Monocytes % (Manual) 8.0 H Basophils % (Manual) Seg Neutrophils # Seg Neutrophils # Man 22.4 H Lymphocytes # (Manual) 0.5 L Monocytes # (Manual) 2.0 H Eosinophils # (Manual) Basophils # (Manual) PT INR D-Dimer ABG pH POC ABG pCO2 POC ABG pO2 ABG pO2 ABG HCO3 37.9 H ABG O2 Saturation ABG Base Excess 11.4 H ABG Hemoglobin 10.6 L ABG Oxyhemoglobin ABG Potassium ABG Glucose Oxyhemoglobin 94.7 L Carboxyhemoglobin Sodium Potassium Chloride Carbon Dioxide BUN Creatinine Glucose POC Glucose 135 H Calcium Ferritin Total Bilirubin Alkaline Phosphatase Lactate Dehydrogenase Total Creatine Kinase CK-MB (CK-2) Rel Index Troponin T C-Reactive Protein Total Protein Albumin Prealbumin LDL Cholesterol Direct Arterial Blood Glucose Arterial Blood Ionized Calcium Urine WBC (Auto) 03/06/20 03/06/20 03/06/20 06:08 12:19 19:10 WBC RBC Hgb Hct MCV MCH RDW Plt Count Lymph % (Auto) Lymph # (Auto) [place] # (Auto) Seg Neutrophils % Seg Neuts % (Manual) Lymphocytes % (Manual) Monocytes % (Manual) Basophils % (Manual) Seg Neutrophils # Seg Neutrophils # Man Lymphocytes # (Manual) Monocytes # (Manual) Eosinophils # (Manual) Basophils # (Manual) PT INR D-Dimer ABG pH POC ABG pCO2 POC ABG pO2 ABG pO2 ABG HCO3 ABG O2 Saturation ABG Base Excess ABG Hemoglobin ABG Oxyhemoglobin ABG Potassium ABG Glucose Oxyhemoglobin Carboxyhemoglobin Sodium 150 H D Potassium Chloride Carbon Dioxide 39 H D BUN 23 H Creatinine < 0.2 L Glucose 144 H POC Glucose 169 H 152 H Calcium Ferritin Total Bilirubin Alkaline Phosphatase Lactate Dehydrogenase Total Creatine Kinase CK-MB (CK-2) Rel Index Troponin T C-Reactive Protein Total Protein Albumin 3.3 L Prealbumin LDL Cholesterol Direct Arterial Blood Glucose Arterial Blood Ionized Calcium Urine WBC (Auto) 03/06/20 03/07/20 03/07/20 23:58 04:25 04:25 WBC 22.1 H RBC Hgb 10.9 L Hct 32.9 L MCV MCH RDW 15.5 H Plt Count 739 H Lymph % (Auto) 7.8 L Lymph # (Auto) [place] # (Auto) 1.3 H Seg Neutrophils % 85.5 H Seg Neuts % (Manual) Lymphocytes % (Manual) Monocytes % (Manual) Basophils % (Manual) Seg Neutrophils # 18.9 H Seg Neutrophils # Man Lymphocytes # (Manual) Monocytes # (Manual) Eosinophils # (Manual) Basophils # (Manual) PT INR D-Dimer ABG pH POC ABG pCO2 POC ABG pO2 ABG pO2 ABG HCO3 ABG O2 Saturation ABG Base Excess ABG Hemoglobin ABG Oxyhemoglobin ABG Potassium ABG Glucose Oxyhemoglobin Carboxyhemoglobin Sodium 146 H Potassium Chloride Carbon Dioxide 37 H BUN Creatinine < 0.2 L Glucose 118 H POC Glucose 111 H Calcium Ferritin Total Bilirubin Alkaline Phosphatase Lactate Dehydrogenase Total Creatine Kinase CK-MB (CK-2) Rel Index Troponin T C-Reactive Protein Total Protein Albumin 3.7 L Prealbumin LDL Cholesterol Direct Arterial Blood Glucose Arterial Blood Ionized Calcium Urine WBC (Auto) 03/07/20 03/07/20 03/07/20 05:20 17:45 23:32 WBC RBC Hgb Hct MCV MCH RDW Plt Count Lymph % (Auto) Lymph # (Auto) [place] # (Auto) Seg Neutrophils % Seg Neuts % (Manual) Lymphocytes % (Manual) Monocytes % (Manual) Basophils % (Manual) Seg Neutrophils # Seg Neutrophils # Man Lymphocytes # (Manual) Monocytes # (Manual) Eosinophils # (Manual) Basophils # (Manual) PT INR D-Dimer ABG pH POC ABG pCO2 POC ABG pO2 ABG pO2 ABG HCO3 ABG O2 Saturation ABG Base Excess ABG Hemoglobin ABG Oxyhemoglobin ABG Potassium ABG Glucose Oxyhemoglobin Carboxyhemoglobin Sodium Potassium Chloride Carbon Dioxide BUN Creatinine Glucose POC Glucose 113 H 124 H 210 H Calcium Ferritin Total Bilirubin Alkaline Phosphatase Lactate Dehydrogenase Total Creatine Kinase CK-MB (CK-2) Rel Index Troponin T C-Reactive Protein Total Protein Albumin Prealbumin LDL Cholesterol Direct Arterial Blood Glucose Arterial Blood Ionized Calcium Urine WBC (Auto) 03/08/20 03/08/20 03/08/20 05:35 06:43 06:43 WBC 28.9 H RBC 3.53 L Hgb 9.7 L Hct 30.3 L MCV MCH RDW 15.6 H Plt Count 578 H Lymph % (Auto) Lymph # (Auto) [place] # (Auto) Seg Neutrophils % Seg Neuts % (Manual) 93.0 H Lymphocytes % (Manual) 4.0 L Monocytes % (Manual) Basophils % (Manual) Seg Neutrophils # Seg Neutrophils # Man 26.9 H Lymphocytes # (Manual) Monocytes # (Manual) Eosinophils # (Manual) Basophils # (Manual) PT INR D-Dimer ABG pH POC ABG pCO2 POC ABG pO2 ABG pO2 ABG HCO3 ABG O2 Saturation ABG Base Excess ABG Hemoglobin ABG Oxyhemoglobin ABG Potassium ABG Glucose Oxyhemoglobin Carboxyhemoglobin Sodium 146 H Potassium Chloride Carbon Dioxide 35 H BUN 34 H Creatinine 0.3 L D Glucose 125 H POC Glucose 147 H Calcium Ferritin Total Bilirubin Alkaline Phosphatase Lactate Dehydrogenase Total Creatine Kinase CK-MB (CK-2) Rel Index Troponin T C-Reactive Protein Total Protein 5.9 L Albumin 3.2 L Prealbumin LDL Cholesterol Direct Arterial Blood Glucose Arterial Blood Ionized Calcium Urine WBC (Auto) 03/08/20 03/08/20 03/08/20 08:57 11:14 12:34 WBC RBC Hgb Hct MCV MCH RDW Plt Count Lymph % (Auto) Lymph # (Auto) [place] # (Auto) Seg Neutrophils % Seg Neuts % (Manual) Lymphocytes % (Manual) Monocytes % (Manual) Basophils % (Manual) Seg Neutrophils # Seg Neutrophils # Man Lymphocytes # (Manual) Monocytes # (Manual) Eosinophils # (Manual) Basophils # (Manual) PT INR D-Dimer ABG pH POC ABG pCO2 63.1 H POC ABG pO2 ABG pO2 ABG HCO3 ABG O2 Saturation ABG Base Excess ABG Hemoglobin 10.9 L ABG Oxyhemoglobin ABG Potassium ABG Glucose 176 H Oxyhemoglobin Carboxyhemoglobin Sodium Potassium Chloride Carbon Dioxide BUN Creatinine Glucose POC Glucose 171 H Calcium Ferritin Total Bilirubin Alkaline Phosphatase Lactate Dehydrogenase Total Creatine Kinase CK-MB (CK-2) Rel Index Troponin T C-Reactive Protein Total Protein Albumin Prealbumin LDL Cholesterol Direct Arterial Blood Glucose 176 H Arterial Blood Ionized Calcium 4.5 L Urine WBC (Auto) 10.0 H 03/08/20 03/08/20 03/09/20 18:02 23:43 05:49 WBC RBC Hgb Hct MCV MCH RDW Plt Count Lymph % (Auto) Lymph # (Auto) [place] # (Auto) Seg Neutrophils % Seg Neuts % (Manual) Lymphocytes % (Manual) Monocytes % (Manual) Basophils % (Manual) Seg Neutrophils # Seg Neutrophils # Man Lymphocytes # (Manual) Monocytes # (Manual) Eosinophils # (Manual) Basophils # (Manual) PT INR D-Dimer ABG pH POC ABG pCO2 POC ABG pO2 ABG pO2 ABG HCO3 ABG O2 Saturation ABG Base Excess ABG Hemoglobin ABG Oxyhemoglobin ABG Potassium ABG Glucose Oxyhemoglobin Carboxyhemoglobin Sodium Potassium Chloride Carbon Dioxide BUN Creatinine Glucose POC Glucose 157 H 134 H 163 H Calcium Ferritin Total Bilirubin Alkaline Phosphatase Lactate Dehydrogenase Total Creatine Kinase CK-MB (CK-2) Rel Index Troponin T C-Reactive Protein Total Protein Albumin Prealbumin LDL Cholesterol Direct Arterial Blood Glucose Arterial Blood Ionized Calcium Urine WBC (Auto) 03/09/20 03/09/20 03/09/20 08:35 08:35 12:11 WBC 23.4 H RBC 3.36 L Hgb 9.3 L Hct 28.8 L MCV MCH RDW 15.9 H Plt Count 521 H Lymph % (Auto) Lymph # (Auto) [place] # (Auto) Seg Neutrophils % Seg Neuts % (Manual) 87.0 H Lymphocytes % (Manual) 4.0 L Monocytes % (Manual) 9.0 H Basophils % (Manual) Seg Neutrophils # Seg Neutrophils # Man 20.4 H Lymphocytes # (Manual) 0.9 L Monocytes # (Manual) 2.1 H Eosinophils # (Manual) Basophils # (Manual) PT INR D-Dimer ABG pH POC ABG pCO2 POC ABG pO2 ABG pO2 ABG HCO3 ABG O2 Saturation ABG Base Excess ABG Hemoglobin ABG Oxyhemoglobin ABG Potassium ABG Glucose Oxyhemoglobin Carboxyhemoglobin Sodium 147 H Potassium Chloride Carbon Dioxide 37 H BUN 63 H Creatinine Glucose 154 H POC Glucose 128 H Calcium Ferritin Total Bilirubin Alkaline Phosphatase Lactate Dehydrogenase Total Creatine Kinase CK-MB (CK-2) Rel Index Troponin T C-Reactive Protein Total Protein Albumin Prealbumin LDL Cholesterol Direct Arterial Blood Glucose Arterial Blood Ionized Calcium Urine WBC (Auto) 03/09/20 03/10/20 03/10/20 17:51 00:25 05:41 WBC RBC Hgb Hct MCV MCH RDW Plt Count Lymph % (Auto) Lymph # (Auto) [place] # (Auto) Seg Neutrophils % Seg Neuts % (Manual) Lymphocytes % (Manual) Monocytes % (Manual) Basophils % (Manual) Seg Neutrophils # Seg Neutrophils # Man Lymphocytes # (Manual) Monocytes # (Manual) Eosinophils # (Manual) Basophils # (Manual) PT INR D-Dimer ABG pH POC ABG pCO2 POC ABG pO2 ABG pO2 ABG HCO3 ABG O2 Saturation ABG Base Excess ABG Hemoglobin ABG Oxyhemoglobin ABG Potassium ABG Glucose Oxyhemoglobin Carboxyhemoglobin Sodium Potassium Chloride Carbon Dioxide BUN Creatinine Glucose POC Glucose 127 H 128 H 153 H Calcium Ferritin Total Bilirubin Alkaline Phosphatase Lactate Dehydrogenase Total Creatine Kinase CK-MB (CK-2) Rel Index Troponin T C-Reactive Protein Total Protein Albumin Prealbumin LDL Cholesterol Direct Arterial Blood Glucose Arterial Blood Ionized Calcium Urine WBC (Auto) 03/10/20 03/10/20 03/10/20 06:14 06:14 12:02 WBC 18.3 H RBC 3.45 L Hgb 9.5 L Hct 29.5 L MCV MCH RDW 16.1 H Plt Count 494 H Lymph % (Auto) Lymph # (Auto) [place] # (Auto) Seg Neutrophils % Seg Neuts % (Manual) 95.0 H Lymphocytes % (Manual) 1.0 L Monocytes % (Manual) Basophils % (Manual) Seg Neutrophils # Seg Neutrophils # Man 17.4 H Lymphocytes # (Manual) 0.2 L Monocytes # (Manual) Eosinophils # (Manual) Basophils # (Manual) PT INR D-Dimer ABG pH POC ABG pCO2 POC ABG pO2 ABG pO2 ABG HCO3 ABG O2 Saturation ABG Base Excess ABG Hemoglobin ABG Oxyhemoglobin ABG Potassium ABG Glucose Oxyhemoglobin Carboxyhemoglobin Sodium 149 H Potassium Chloride Carbon Dioxide 35 H BUN 34 H Creatinine 0.2 L D Glucose 177 H POC Glucose 151 H Calcium Ferritin Total Bilirubin Alkaline Phosphatase Lactate Dehydrogenase Total Creatine Kinase CK-MB (CK-2) Rel Index Troponin T C-Reactive Protein Total Protein Albumin Prealbumin LDL Cholesterol Direct Arterial Blood Glucose Arterial Blood Ionized Calcium Urine WBC (Auto) 03/10/20 03/10/20 03/11/20 17:41 23:53 05:02 WBC RBC Hgb Hct MCV MCH RDW Plt Count Lymph % (Auto) Lymph # (Auto) [place] # (Auto) Seg Neutrophils % Seg Neuts % (Manual) Lymphocytes % (Manual) Monocytes % (Manual) Basophils % (Manual) Seg Neutrophils # Seg Neutrophils # Man Lymphocytes # (Manual) Monocytes # (Manual) Eosinophils # (Manual) Basophils # (Manual) PT INR D-Dimer ABG pH POC ABG pCO2 POC ABG pO2 ABG pO2 ABG HCO3 ABG O2 Saturation ABG Base Excess ABG Hemoglobin ABG Oxyhemoglobin ABG Potassium ABG Glucose Oxyhemoglobin Carboxyhemoglobin Sodium Potassium Chloride Carbon Dioxide BUN Creatinine Glucose POC Glucose 168 H 142 H 146 H Calcium Ferritin Total Bilirubin Alkaline Phosphatase Lactate Dehydrogenase Total Creatine Kinase CK-MB (CK-2) Rel Index Troponin T C-Reactive Protein Total Protein Albumin Prealbumin LDL Cholesterol Direct Arterial Blood Glucose Arterial Blood Ionized Calcium Urine WBC (Auto) 03/11/20 03/11/20 03/11/20 11:30 14:01 14:01 WBC 19.7 H RBC 3.04 L Hgb 8.7 L Hct 25.8 L MCV MCH RDW 15.6 H Plt Count Lymph % (Auto) Lymph # (Auto) [place] # (Auto) Seg Neutrophils % Seg Neuts % (Manual) Lymphocytes % (Manual) Monocytes % (Manual) Basophils % (Manual) Seg Neutrophils # Seg Neutrophils # Man Lymphocytes # (Manual) Monocytes # (Manual) Eosinophils # (Manual) Basophils # (Manual) PT INR D-Dimer ABG pH POC ABG pCO2 POC ABG pO2 ABG pO2 ABG HCO3 ABG O2 Saturation ABG Base Excess ABG Hemoglobin ABG Oxyhemoglobin ABG Potassium ABG Glucose Oxyhemoglobin Carboxyhemoglobin Sodium 151 H Potassium Chloride Carbon Dioxide 37 H BUN Creatinine < 0.2 L Glucose 171 H POC Glucose 248 H Calcium Ferritin Total Bilirubin Alkaline Phosphatase Lactate Dehydrogenase Total Creatine Kinase CK-MB (CK-2) Rel Index Troponin T C-Reactive Protein Total Protein Albumin Prealbumin LDL Cholesterol Direct Arterial Blood Glucose Arterial Blood Ionized Calcium Urine WBC (Auto) 03/11/20 03/11/20 03/12/20 17:09 23:52 04:39 WBC 19.9 H RBC 3.16 L Hgb 8.9 L Hct 27.5 L MCV MCH RDW 15.7 H Plt Count Lymph % (Auto) 6.8 L Lymph # (Auto) [place] # (Auto) 1.2 H Seg Neutrophils % 86.0 H Seg Neuts % (Manual) Lymphocytes % (Manual) Monocytes % (Manual) Basophils % (Manual) Seg Neutrophils # 17.1 H Seg Neutrophils # Man Lymphocytes # (Manual) Monocytes # (Manual) Eosinophils # (Manual) Basophils # (Manual) PT INR D-Dimer ABG pH POC ABG pCO2 POC ABG pO2 ABG pO2 ABG HCO3 ABG O2 Saturation ABG Base Excess ABG Hemoglobin ABG Oxyhemoglobin ABG Potassium ABG Glucose Oxyhemoglobin Carboxyhemoglobin Sodium Potassium Chloride Carbon Dioxide BUN Creatinine Glucose POC Glucose 124 H 131 H Calcium Ferritin Total Bilirubin Alkaline Phosphatase Lactate Dehydrogenase Total Creatine Kinase CK-MB (CK-2) Rel Index Troponin T C-Reactive Protein Total Protein Albumin Prealbumin LDL Cholesterol Direct Arterial Blood Glucose Arterial Blood Ionized Calcium Urine WBC (Auto) 03/12/20 03/12/20 03/12/20 04:39 05:28 11:34 WBC RBC Hgb Hct MCV MCH RDW Plt Count Lymph % (Auto) Lymph # (Auto) [place] # (Auto) Seg Neutrophils % Seg Neuts % (Manual) Lymphocytes % (Manual) Monocytes % (Manual) Basophils % (Manual) Seg Neutrophils # Seg Neutrophils # Man Lymphocytes # (Manual) Monocytes # (Manual) Eosinophils # (Manual) Basophils # (Manual) PT INR D-Dimer ABG pH POC ABG pCO2 POC ABG pO2 ABG pO2 ABG HCO3 ABG O2 Saturation ABG Base Excess ABG Hemoglobin ABG Oxyhemoglobin ABG Potassium ABG Glucose Oxyhemoglobin Carboxyhemoglobin Sodium 147 H Potassium Chloride Carbon Dioxide 40 H BUN Creatinine < 0.2 L Glucose 175 H POC Glucose 167 H 144 H Calcium Ferritin Total Bilirubin Alkaline Phosphatase Lactate Dehydrogenase Total Creatine Kinase CK-MB (CK-2) Rel Index Troponin T C-Reactive Protein Total Protein Albumin Prealbumin LDL Cholesterol Direct Arterial Blood Glucose Arterial Blood Ionized Calcium Urine WBC (Auto) 03/12/20 03/12/20 03/13/20 17:32 23:57 05:57 WBC RBC Hgb Hct MCV MCH RDW Plt Count Lymph % (Auto) Lymph # (Auto) [place] # (Auto) Seg Neutrophils % Seg Neuts % (Manual) Lymphocytes % (Manual) Monocytes % (Manual) Basophils % (Manual) Seg Neutrophils # Seg Neutrophils # Man Lymphocytes # (Manual) Monocytes # (Manual) Eosinophils # (Manual) Basophils # (Manual) PT INR D-Dimer ABG pH POC ABG pCO2 POC ABG pO2 ABG pO2 ABG HCO3 ABG O2 Saturation ABG Base Excess ABG Hemoglobin ABG Oxyhemoglobin ABG Potassium ABG Glucose Oxyhemoglobin Carboxyhemoglobin Sodium Potassium Chloride Carbon Dioxide BUN Creatinine Glucose POC Glucose 141 H 137 H 161 H Calcium Ferritin Total Bilirubin Alkaline Phosphatase Lactate Dehydrogenase Total Creatine Kinase CK-MB (CK-2) Rel Index Troponin T C-Reactive Protein Total Protein Albumin Prealbumin LDL Cholesterol Direct Arterial Blood Glucose Arterial Blood Ionized Calcium Urine WBC (Auto) 03/13/20 03/13/20 03/13/20 12:28 14:14 18:39 WBC RBC Hgb Hct MCV MCH RDW Plt Count Lymph % (Auto) Lymph # (Auto) [place] # (Auto) Seg Neutrophils % Seg Neuts % (Manual) Lymphocytes % (Manual) Monocytes % (Manual) Basophils % (Manual) Seg Neutrophils # Seg Neutrophils # Man Lymphocytes # (Manual) Monocytes # (Manual) Eosinophils # (Manual) Basophils # (Manual) PT INR D-Dimer ABG pH POC ABG pCO2 POC ABG pO2 ABG pO2 ABG HCO3 ABG O2 Saturation ABG Base Excess ABG Hemoglobin ABG Oxyhemoglobin ABG Potassium ABG Glucose Oxyhemoglobin Carboxyhemoglobin Sodium Potassium Chloride Carbon Dioxide 39 H BUN Creatinine < 0.2 L Glucose 129 H POC Glucose 130 H 125 H Calcium Ferritin Total Bilirubin Alkaline Phosphatase Lactate Dehydrogenase Total Creatine Kinase CK-MB (CK-2) Rel Index Troponin T C-Reactive Protein Total Protein Albumin Prealbumin LDL Cholesterol Direct Arterial Blood Glucose Arterial Blood Ionized Calcium Urine WBC (Auto) 03/13/20 03/14/20 03/14/20 23:33 05:24 08:07 WBC 16.8 H RBC 2.81 L Hgb 7.9 L Hct 23.9 L MCV MCH RDW 15.9 H Plt Count Lymph % (Auto) Lymph # (Auto) [place] # (Auto) Seg Neutrophils % Seg Neuts % (Manual) 84.0 H Lymphocytes % (Manual) 10.0 L Monocytes % (Manual) Basophils % (Manual) Seg Neutrophils # Seg Neutrophils # Man 14.1 H Lymphocytes # (Manual) Monocytes # (Manual) Eosinophils # (Manual) Basophils # (Manual) PT INR D-Dimer ABG pH POC ABG pCO2 POC ABG pO2 ABG pO2 ABG HCO3 ABG O2 Saturation ABG Base Excess ABG Hemoglobin ABG Oxyhemoglobin ABG Potassium ABG Glucose Oxyhemoglobin Carboxyhemoglobin Sodium Potassium Chloride Carbon Dioxide BUN Creatinine Glucose POC Glucose 146 H 125 H Calcium Ferritin Total Bilirubin Alkaline Phosphatase Lactate Dehydrogenase Total Creatine Kinase CK-MB (CK-2) Rel Index Troponin T C-Reactive Protein Total Protein Albumin Prealbumin LDL Cholesterol Direct Arterial Blood Glucose Arterial Blood Ionized Calcium Urine WBC (Auto) 03/14/20 03/14/20 03/14/20 08:07 12:21 18:26 WBC RBC Hgb Hct MCV MCH RDW Plt Count Lymph % (Auto) Lymph # (Auto) [place] # (Auto) Seg Neutrophils % Seg Neuts % (Manual) Lymphocytes % (Manual) Monocytes % (Manual) Basophils % (Manual) Seg Neutrophils # Seg Neutrophils # Man Lymphocytes # (Manual) Monocytes # (Manual) Eosinophils # (Manual) Basophils # (Manual) PT INR D-Dimer ABG pH POC ABG pCO2 POC ABG pO2 ABG pO2 ABG HCO3 ABG O2 Saturation ABG Base Excess ABG Hemoglobin ABG Oxyhemoglobin ABG Potassium ABG Glucose Oxyhemoglobin Carboxyhemoglobin Sodium Potassium Chloride 97.0 L Carbon Dioxide 37 H BUN Creatinine < 0.2 L Glucose 129 H POC Glucose 109 H 142 H Calcium 8.3 L Ferritin Total Bilirubin Alkaline Phosphatase Lactate Dehydrogenase Total Creatine Kinase CK-MB (CK-2) Rel Index Troponin T C-Reactive Protein Total Protein Albumin Prealbumin LDL Cholesterol Direct Arterial Blood Glucose Arterial Blood Ionized Calcium Urine WBC (Auto) 03/14/20 03/15/20 03/15/20 23:57 05:46 08:06 WBC 19.7 H RBC 3.29 L Hgb 9.1 L Hct 28.0 L MCV MCH RDW 15.9 H Plt Count Lymph % (Auto) Lymph # (Auto) [place] # (Auto) Seg Neutrophils % Seg Neuts % (Manual) Lymphocytes % (Manual) Monocytes % (Manual) Basophils % (Manual) Seg Neutrophils # Seg Neutrophils # Man Lymphocytes # (Manual) Monocytes # (Manual) Eosinophils # (Manual) Basophils # (Manual) PT INR D-Dimer ABG pH POC ABG pCO2 POC ABG pO2 ABG pO2 ABG HCO3 ABG O2 Saturation ABG Base Excess ABG Hemoglobin ABG Oxyhemoglobin ABG Potassium ABG Glucose Oxyhemoglobin Carboxyhemoglobin Sodium Potassium Chloride Carbon Dioxide BUN Creatinine Glucose POC Glucose 157 H 118 H Calcium Ferritin Total Bilirubin Alkaline Phosphatase Lactate Dehydrogenase Total Creatine Kinase CK-MB (CK-2) Rel Index Troponin T C-Reactive Protein Total Protein Albumin Prealbumin LDL Cholesterol Direct Arterial Blood Glucose Arterial Blood Ionized Calcium Urine WBC (Auto) 03/15/20 03/15/20 03/15/20 08:06 12:44 18:09 WBC RBC Hgb Hct MCV MCH RDW Plt Count Lymph % (Auto) Lymph # (Auto) [place] # (Auto) Seg Neutrophils % Seg Neuts % (Manual) Lymphocytes % (Manual) Monocytes % (Manual) Basophils % (Manual) Seg Neutrophils # Seg Neutrophils # Man Lymphocytes # (Manual) Monocytes # (Manual) Eosinophils # (Manual) Basophils # (Manual) PT INR D-Dimer ABG pH POC ABG pCO2 POC ABG pO2 ABG pO2 ABG HCO3 ABG O2 Saturation ABG Base Excess ABG Hemoglobin ABG Oxyhemoglobin ABG Potassium ABG Glucose Oxyhemoglobin Carboxyhemoglobin Sodium 136 L Potassium Chloride 93.6 L Carbon Dioxide 37 H BUN Creatinine < 0.2 L Glucose 132 H POC Glucose 151 H 164 H Calcium Ferritin Total Bilirubin Alkaline Phosphatase Lactate Dehydrogenase Total Creatine Kinase CK-MB (CK-2) Rel Index Troponin T C-Reactive Protein Total Protein Albumin Prealbumin LDL Cholesterol Direct Arterial Blood Glucose Arterial Blood Ionized Calcium Urine WBC (Auto) 03/15/20 03/16/20 03/16/20 23:26 05:39 11:58 WBC RBC Hgb Hct MCV MCH RDW Plt Count Lymph % (Auto) Lymph # (Auto) [place] # (Auto) Seg Neutrophils % Seg Neuts % (Manual) Lymphocytes % (Manual) Monocytes % (Manual) Basophils % (Manual) Seg Neutrophils # Seg Neutrophils # Man Lymphocytes # (Manual) Monocytes # (Manual) Eosinophils # (Manual) Basophils # (Manual) PT INR D-Dimer ABG pH POC ABG pCO2 POC ABG pO2 ABG pO2 ABG HCO3 ABG O2 Saturation ABG Base Excess ABG Hemoglobin ABG Oxyhemoglobin ABG Potassium ABG Glucose Oxyhemoglobin Carboxyhemoglobin Sodium Potassium Chloride Carbon Dioxide BUN Creatinine Glucose POC Glucose 136 H 116 H 109 H Calcium Ferritin Total Bilirubin Alkaline Phosphatase Lactate Dehydrogenase Total Creatine Kinase CK-MB (CK-2) Rel Index Troponin T C-Reactive Protein Total Protein Albumin Prealbumin LDL Cholesterol Direct Arterial Blood Glucose Arterial Blood Ionized Calcium Urine WBC (Auto) 03/16/20 03/17/20 03/17/20 23:56 04:40 04:40 WBC 18.0 H RBC 3.33 L Hgb 9.5 L Hct 28.8 L MCV MCH RDW 16.4 H Plt Count 499 H Lymph % (Auto) Lymph # (Auto) [place] # (Auto) Seg Neutrophils % Seg Neuts % (Manual) 82.0 H Lymphocytes % (Manual) 8.0 L Monocytes % (Manual) Basophils % (Manual) Seg Neutrophils # Seg Neutrophils # Man 14.8 H Lymphocytes # (Manual) Monocytes # (Manual) 1.3 H Eosinophils # (Manual) Basophils # (Manual) 0.2 H PT INR D-Dimer ABG pH POC ABG pCO2 POC ABG pO2 ABG pO2 ABG HCO3 ABG O2 Saturation ABG Base Excess ABG Hemoglobin ABG Oxyhemoglobin ABG Potassium ABG Glucose Oxyhemoglobin Carboxyhemoglobin Sodium Potassium Chloride 97.7 L Carbon Dioxide 32 H BUN Creatinine < 0.2 L Glucose 114 H POC Glucose 131 H Calcium Ferritin Total Bilirubin Alkaline Phosphatase Lactate Dehydrogenase Total Creatine Kinase CK-MB (CK-2) Rel Index Troponin T C-Reactive Protein Total Protein Albumin Prealbumin LDL Cholesterol Direct Arterial Blood Glucose Arterial Blood Ionized Calcium Urine WBC (Auto) 03/18/20 03/18/20 03/18/20 00:21 05:21 11:55 WBC RBC Hgb Hct MCV MCH RDW Plt Count Lymph % (Auto) Lymph # (Auto) [place] # (Auto) Seg Neutrophils % Seg Neuts % (Manual) Lymphocytes % (Manual) Monocytes % (Manual) Basophils % (Manual) Seg Neutrophils # Seg Neutrophils # Man Lymphocytes # (Manual) Monocytes # (Manual) Eosinophils # (Manual) Basophils # (Manual) PT INR D-Dimer ABG pH POC ABG pCO2 POC ABG pO2 ABG pO2 ABG HCO3 ABG O2 Saturation ABG Base Excess ABG Hemoglobin ABG Oxyhemoglobin ABG Potassium ABG Glucose Oxyhemoglobin Carboxyhemoglobin Sodium Potassium Chloride Carbon Dioxide BUN Creatinine Glucose POC Glucose 124 H 138 H 119 H Calcium Ferritin Total Bilirubin Alkaline Phosphatase Lactate Dehydrogenase Total Creatine Kinase CK-MB (CK-2) Rel Index Troponin T C-Reactive Protein Total Protein Albumin Prealbumin LDL Cholesterol Direct Arterial Blood Glucose Arterial Blood Ionized Calcium Urine WBC (Auto) 03/18/20 03/18/20 03/19/20 17:03 23:58 05:24 WBC RBC Hgb Hct MCV MCH RDW Plt Count Lymph % (Auto) Lymph # (Auto) [place] # (Auto) Seg Neutrophils % Seg Neuts % (Manual) Lymphocytes % (Manual) Monocytes % (Manual) Basophils % (Manual) Seg Neutrophils # Seg Neutrophils # Man Lymphocytes # (Manual) Monocytes # (Manual) Eosinophils # (Manual) Basophils # (Manual) PT INR D-Dimer ABG pH POC ABG pCO2 POC ABG pO2 ABG pO2 ABG HCO3 ABG O2 Saturation ABG Base Excess ABG Hemoglobin ABG Oxyhemoglobin ABG Potassium ABG Glucose Oxyhemoglobin Carboxyhemoglobin Sodium Potassium Chloride Carbon Dioxide BUN Creatinine Glucose POC Glucose 128 H 128 H 115 H Calcium Ferritin Total Bilirubin Alkaline Phosphatase Lactate Dehydrogenase Total Creatine Kinase CK-MB (CK-2) Rel Index Troponin T C-Reactive Protein Total Protein Albumin Prealbumin LDL Cholesterol Direct Arterial Blood Glucose Arterial Blood Ionized Calcium Urine WBC (Auto) 03/19/20 03/19/20 03/19/20 08:05 08:05 11:56 WBC 16.8 H RBC 3.36 L Hgb 9.4 L Hct 28.8 L MCV MCH RDW 17.4 H Plt Count 567 H Lymph % (Auto) 7.8 L Lymph # (Auto) [place] # (Auto) 1.2 H Seg Neutrophils % 83.5 H Seg Neuts % (Manual) Lymphocytes % (Manual) Monocytes % (Manual) Basophils % (Manual) Seg Neutrophils # 14.1 H Seg Neutrophils # Man Lymphocytes # (Manual) Monocytes # (Manual) Eosinophils # (Manual) Basophils # (Manual) PT INR D-Dimer ABG pH POC ABG pCO2 POC ABG pO2 ABG pO2 ABG HCO3 ABG O2 Saturation ABG Base Excess ABG Hemoglobin ABG Oxyhemoglobin ABG Potassium ABG Glucose Oxyhemoglobin Carboxyhemoglobin Sodium Potassium Chloride Carbon Dioxide 36 H BUN Creatinine < 0.2 L Glucose 135 H POC Glucose 128 H Calcium Ferritin Total Bilirubin Alkaline Phosphatase Lactate Dehydrogenase Total Creatine Kinase CK-MB (CK-2) Rel Index Troponin T C-Reactive Protein Total Protein Albumin Prealbumin LDL Cholesterol Direct Arterial Blood Glucose Arterial Blood Ionized Calcium Urine WBC (Auto) 03/19/20 03/20/20 03/20/20 23:59 05:12 16:52 WBC RBC Hgb Hct MCV MCH RDW Plt Count Lymph % (Auto) Lymph # (Auto) [place] # (Auto) Seg Neutrophils % Seg Neuts % (Manual) Lymphocytes % (Manual) Monocytes % (Manual) Basophils % (Manual) Seg Neutrophils # Seg Neutrophils # Man Lymphocytes # (Manual) Monocytes # (Manual) Eosinophils # (Manual) Basophils # (Manual) PT INR D-Dimer ABG pH POC ABG pCO2 POC ABG pO2 ABG pO2 ABG HCO3 ABG O2 Saturation ABG Base Excess ABG Hemoglobin ABG Oxyhemoglobin ABG Potassium ABG Glucose Oxyhemoglobin Carboxyhemoglobin Sodium Potassium Chloride Carbon Dioxide BUN Creatinine Glucose POC Glucose 120 H 131 H 124 H Calcium Ferritin Total Bilirubin Alkaline Phosphatase Lactate Dehydrogenase Total Creatine Kinase CK-MB (CK-2) Rel Index Troponin T C-Reactive Protein Total Protein Albumin Prealbumin LDL Cholesterol Direct Arterial Blood Glucose Arterial Blood Ionized Calcium Urine WBC (Auto) 03/20/20 03/21/20 03/21/20 23:35 04:50 07:35 WBC 15.2 H RBC 3.39 L Hgb 9.4 L Hct 29.4 L MCV MCH RDW 17.6 H Plt Count 518 H Lymph % (Auto) Lymph # (Auto) [place] # (Auto) Seg Neutrophils % Seg Neuts % (Manual) 83.0 H Lymphocytes % (Manual) 10.0 L Monocytes % (Manual) Basophils % (Manual) 2.0 H Seg Neutrophils # Seg Neutrophils # Man 12.6 H Lymphocytes # (Manual) Monocytes # (Manual) Eosinophils # (Manual) Basophils # (Manual) 0.3 H PT INR D-Dimer ABG pH POC ABG pCO2 POC ABG pO2 ABG pO2 ABG HCO3 ABG O2 Saturation ABG Base Excess ABG Hemoglobin ABG Oxyhemoglobin ABG Potassium ABG Glucose Oxyhemoglobin Carboxyhemoglobin Sodium Potassium Chloride Carbon Dioxide BUN Creatinine Glucose POC Glucose 125 H 127 H Calcium Ferritin Total Bilirubin Alkaline Phosphatase Lactate Dehydrogenase Total Creatine Kinase CK-MB (CK-2) Rel Index Troponin T C-Reactive Protein Total Protein Albumin Prealbumin LDL Cholesterol Direct Arterial Blood Glucose Arterial Blood Ionized Calcium Urine WBC (Auto) 03/21/20 03/21/20 03/21/20 07:35 11:45 17:22 WBC RBC Hgb Hct MCV MCH RDW Plt Count Lymph % (Auto) Lymph # (Auto) [place] # (Auto) Seg Neutrophils % Seg Neuts % (Manual) Lymphocytes % (Manual) Monocytes % (Manual) Basophils % (Manual) Seg Neutrophils # Seg Neutrophils # Man Lymphocytes # (Manual) Monocytes # (Manual) Eosinophils # (Manual) Basophils # (Manual) PT INR D-Dimer ABG pH POC ABG pCO2 POC ABG pO2 ABG pO2 ABG HCO3 ABG O2 Saturation ABG Base Excess ABG Hemoglobin ABG Oxyhemoglobin ABG Potassium ABG Glucose Oxyhemoglobin Carboxyhemoglobin Sodium 136 L Potassium Chloride 97.7 L Carbon Dioxide 32 H BUN Creatinine < 0.2 L Glucose 103 H POC Glucose 126 H 120 H Calcium Ferritin Total Bilirubin Alkaline Phosphatase Lactate Dehydrogenase Total Creatine Kinase CK-MB (CK-2) Rel Index Troponin T C-Reactive Protein Total Protein Albumin Prealbumin LDL Cholesterol Direct Arterial Blood Glucose Arterial Blood Ionized Calcium Urine WBC (Auto) 03/22/20 03/22/20 03/22/20 05:09 06:34 06:34 WBC 17.5 H RBC 3.52 L Hgb 10.0 L Hct 30.7 L MCV MCH RDW 17.5 H Plt Count 499 H Lymph % (Auto) Lymph # (Auto) [place] # (Auto) Seg Neutrophils % Seg Neuts % (Manual) 80.0 H Lymphocytes % (Manual) 10.0 L Monocytes % (Manual) Basophils % (Manual) Seg Neutrophils # Seg Neutrophils # Man 14.0 H Lymphocytes # (Manual) Monocytes # (Manual) Eosinophils # (Manual) Basophils # (Manual) PT INR D-Dimer ABG pH POC ABG pCO2 POC ABG pO2 ABG pO2 ABG HCO3 ABG O2 Saturation ABG Base Excess ABG Hemoglobin ABG Oxyhemoglobin ABG Potassium ABG Glucose Oxyhemoglobin Carboxyhemoglobin Sodium Potassium Chloride 96.6 L Carbon Dioxide 38 H BUN Creatinine < 0.2 L Glucose 139 H POC Glucose 125 H Calcium Ferritin Total Bilirubin Alkaline Phosphatase Lactate Dehydrogenase Total Creatine Kinase CK-MB (CK-2) Rel Index Troponin T C-Reactive Protein Total Protein Albumin Prealbumin LDL Cholesterol Direct Arterial Blood Glucose Arterial Blood Ionized Calcium Urine WBC (Auto) 03/22/20 03/22/20 03/22/20 11:45 18:00 23:32 WBC RBC Hgb Hct MCV MCH RDW Plt Count Lymph % (Auto) Lymph # (Auto) [place] # (Auto) Seg Neutrophils % Seg Neuts % (Manual) Lymphocytes % (Manual) Monocytes % (Manual) Basophils % (Manual) Seg Neutrophils # Seg Neutrophils # Man Lymphocytes # (Manual) Monocytes # (Manual) Eosinophils # (Manual) Basophils # (Manual) PT INR D-Dimer ABG pH POC ABG pCO2 POC ABG pO2 ABG pO2 ABG HCO3 ABG O2 Saturation ABG Base Excess ABG Hemoglobin ABG Oxyhemoglobin ABG Potassium ABG Glucose Oxyhemoglobin Carboxyhemoglobin Sodium Potassium Chloride Carbon Dioxide BUN Creatinine Glucose POC Glucose 135 H 133 H Calcium Ferritin Total Bilirubin Alkaline Phosphatase Lactate Dehydrogenase Total Creatine Kinase CK-MB (CK-2) Rel Index Troponin T 0.113 H* C-Reactive Protein Total Protein Albumin Prealbumin LDL Cholesterol Direct Arterial Blood Glucose Arterial Blood Ionized Calcium Urine WBC (Auto) 03/23/20 03/23/20 03/23/20 01:47 06:21 07:57 WBC RBC Hgb Hct MCV MCH RDW Plt Count Lymph % (Auto) Lymph # (Auto) [place] # (Auto) Seg Neutrophils % Seg Neuts % (Manual) Lymphocytes % (Manual) Monocytes % (Manual) Basophils % (Manual) Seg Neutrophils # Seg Neutrophils # Man Lymphocytes # (Manual) Monocytes # (Manual) Eosinophils # (Manual) Basophils # (Manual) PT INR D-Dimer ABG pH POC ABG pCO2 POC ABG pO2 ABG pO2 ABG HCO3 ABG O2 Saturation ABG Base Excess ABG Hemoglobin ABG Oxyhemoglobin ABG Potassium ABG Glucose Oxyhemoglobin Carboxyhemoglobin Sodium Potassium Chloride Carbon Dioxide BUN Creatinine Glucose POC Glucose 130 H Calcium Ferritin Total Bilirubin Alkaline Phosphatase Lactate Dehydrogenase Total Creatine Kinase CK-MB (CK-2) Rel Index Troponin T 0.143 H* D 0.105 H* D C-Reactive Protein Total Protein Albumin Prealbumin LDL Cholesterol Direct Arterial Blood Glucose Arterial Blood Ionized Calcium Urine WBC (Auto) 03/23/20 03/24/20 03/24/20 12:02 05:33 07:15 WBC 18.0 H RBC Hgb 11.0 L Hct 34.0 L MCV MCH RDW 17.4 H Plt Count 520 H Lymph % (Auto) Lymph # (Auto) [place] # (Auto) Seg Neutrophils % Seg Neuts % (Manual) 88.0 H Lymphocytes % (Manual) 7.0 L Monocytes % (Manual) Basophils % (Manual) Seg Neutrophils # Seg Neutrophils # Man 15.8 H Lymphocytes # (Manual) Monocytes # (Manual) Eosinophils # (Manual) Basophils # (Manual) PT INR D-Dimer ABG pH POC ABG pCO2 POC ABG pO2 ABG pO2 ABG HCO3 ABG O2 Saturation ABG Base Excess ABG Hemoglobin ABG Oxyhemoglobin ABG Potassium ABG Glucose Oxyhemoglobin Carboxyhemoglobin Sodium Potassium Chloride Carbon Dioxide BUN Creatinine Glucose POC Glucose 137 H 112 H Calcium Ferritin Total Bilirubin Alkaline Phosphatase Lactate Dehydrogenase Total Creatine Kinase CK-MB (CK-2) Rel Index Troponin T C-Reactive Protein Total Protein Albumin Prealbumin LDL Cholesterol Direct Arterial Blood Glucose Arterial Blood Ionized Calcium Urine WBC (Auto) 03/24/20 03/24/20 03/24/20 07:15 11:22 23:30 WBC RBC Hgb Hct MCV MCH RDW Plt Count Lymph % (Auto) Lymph # (Auto) [place] # (Auto) Seg Neutrophils % Seg Neuts % (Manual) Lymphocytes % (Manual) Monocytes % (Manual) Basophils % (Manual) Seg Neutrophils # Seg Neutrophils # Man Lymphocytes # (Manual) Monocytes # (Manual) Eosinophils # (Manual) Basophils # (Manual) PT INR D-Dimer ABG pH POC ABG pCO2 POC ABG pO2 ABG pO2 ABG HCO3 ABG O2 Saturation ABG Base Excess ABG Hemoglobin ABG Oxyhemoglobin ABG Potassium ABG Glucose Oxyhemoglobin Carboxyhemoglobin Sodium Potassium Chloride 96.6 L Carbon Dioxide 38 H BUN Creatinine < 0.2 L Glucose 141 H POC Glucose 130 H 120 H Calcium Ferritin Total Bilirubin Alkaline Phosphatase Lactate Dehydrogenase Total Creatine Kinase CK-MB (CK-2) Rel Index Troponin T C-Reactive Protein Total Protein Albumin Prealbumin LDL Cholesterol Direct Arterial Blood Glucose Arterial Blood Ionized Calcium Urine WBC (Auto) 03/25/20 03/25/20 03/25/20 05:48 17:53 23:18 WBC RBC Hgb Hct MCV MCH RDW Plt Count Lymph % (Auto) Lymph # (Auto) [place] # (Auto) Seg Neutrophils % Seg Neuts % (Manual) Lymphocytes % (Manual) Monocytes % (Manual) Basophils % (Manual) Seg Neutrophils # Seg Neutrophils # Man Lymphocytes # (Manual) Monocytes # (Manual) Eosinophils # (Manual) Basophils # (Manual) PT INR D-Dimer ABG pH POC ABG pCO2 POC ABG pO2 ABG pO2 ABG HCO3 ABG O2 Saturation ABG Base Excess ABG Hemoglobin ABG Oxyhemoglobin ABG Potassium ABG Glucose Oxyhemoglobin Carboxyhemoglobin Sodium Potassium Chloride Carbon Dioxide BUN Creatinine Glucose POC Glucose 124 H 109 H 131 H Calcium Ferritin Total Bilirubin Alkaline Phosphatase Lactate Dehydrogenase Total Creatine Kinase CK-MB (CK-2) Rel Index Troponin T C-Reactive Protein Total Protein Albumin Prealbumin LDL Cholesterol Direct Arterial Blood Glucose Arterial Blood Ionized Calcium Urine WBC (Auto) 03/26/20 03/26/20 03/26/20 05:21 08:49 08:49 WBC 19.7 H RBC Hgb 10.7 L Hct 33.5 L MCV MCH 27 L RDW 17.1 H Plt Count 480 H Lymph % (Auto) 5.7 L Lymph # (Auto) 1.1 L [place] # (Auto) 1.2 H Seg Neutrophils % 87.7 H Seg Neuts % (Manual) Lymphocytes % (Manual) Monocytes % (Manual) Basophils % (Manual) Seg Neutrophils # 17.2 H Seg Neutrophils # Man Lymphocytes # (Manual) Monocytes # (Manual) Eosinophils # (Manual) Basophils # (Manual) PT INR D-Dimer ABG pH POC ABG pCO2 POC ABG pO2 ABG pO2 ABG HCO3 ABG O2 Saturation ABG Base Excess ABG Hemoglobin ABG Oxyhemoglobin ABG Potassium ABG Glucose Oxyhemoglobin Carboxyhemoglobin Sodium Potassium Chloride 97.2 L Carbon Dioxide 36 H BUN Creatinine < 0.2 L Glucose 127 H POC Glucose 116 H Calcium Ferritin Total Bilirubin Alkaline Phosphatase Lactate Dehydrogenase Total Creatine Kinase CK-MB (CK-2) Rel Index Troponin T C-Reactive Protein Total Protein Albumin Prealbumin LDL Cholesterol Direct Arterial Blood Glucose Arterial Blood Ionized Calcium Urine WBC (Auto) 03/26/20 03/26/20 03/26/20 11:38 18:44 23:06 WBC RBC Hgb Hct MCV MCH RDW Plt Count Lymph % (Auto) Lymph # (Auto) [place] # (Auto) Seg Neutrophils % Seg Neuts % (Manual) Lymphocytes % (Manual) Monocytes % (Manual) Basophils % (Manual) Seg Neutrophils # Seg Neutrophils # Man Lymphocytes # (Manual) Monocytes # (Manual) Eosinophils # (Manual) Basophils # (Manual) PT INR D-Dimer ABG pH POC ABG pCO2 POC ABG pO2 ABG pO2 ABG HCO3 ABG O2 Saturation ABG Base Excess ABG Hemoglobin ABG Oxyhemoglobin ABG Potassium ABG Glucose Oxyhemoglobin Carboxyhemoglobin Sodium Potassium Chloride Carbon Dioxide BUN Creatinine Glucose POC Glucose 120 H 111 H 134 H Calcium Ferritin Total Bilirubin Alkaline Phosphatase Lactate Dehydrogenase Total Creatine Kinase CK-MB (CK-2) Rel Index Troponin T C-Reactive Protein Total Protein Albumin Prealbumin LDL Cholesterol Direct Arterial Blood Glucose Arterial Blood Ionized Calcium Urine WBC (Auto) 03/27/20 03/27/20 03/27/20 05:41 05:59 05:59 WBC 18.6 H RBC Hgb 10.1 L Hct 31.4 L MCV MCH RDW 17.2 H Plt Count Lymph % (Auto) 8.0 L Lymph # (Auto) [place] # (Auto) 1.2 H Seg Neutrophils % 84.7 H Seg Neuts % (Manual) Lymphocytes % (Manual) Monocytes % (Manual) Basophils % (Manual) Seg Neutrophils # 15.8 H Seg Neutrophils # Man Lymphocytes # (Manual) Monocytes # (Manual) Eosinophils # (Manual) Basophils # (Manual) PT INR D-Dimer ABG pH POC ABG pCO2 POC ABG pO2 ABG pO2 ABG HCO3 ABG O2 Saturation ABG Base Excess ABG Hemoglobin ABG Oxyhemoglobin ABG Potassium ABG Glucose Oxyhemoglobin Carboxyhemoglobin Sodium Potassium Chloride Carbon Dioxide 34 H BUN Creatinine < 0.2 L Glucose 127 H POC Glucose 129 H Calcium Ferritin Total Bilirubin Alkaline Phosphatase Lactate Dehydrogenase Total Creatine Kinase CK-MB (CK-2) Rel Index Troponin T C-Reactive Protein Total Protein Albumin Prealbumin LDL Cholesterol Direct Arterial Blood Glucose Arterial Blood Ionized Calcium Urine WBC (Auto) 03/27/20 03/27/20 03/28/20 17:28 23:22 05:23 WBC RBC Hgb Hct MCV MCH RDW Plt Count Lymph % (Auto) Lymph # (Auto) [place] # (Auto) Seg Neutrophils % Seg Neuts % (Manual) Lymphocytes % (Manual) Monocytes % (Manual) Basophils % (Manual) Seg Neutrophils # Seg Neutrophils # Man Lymphocytes # (Manual) Monocytes # (Manual) Eosinophils # (Manual) Basophils # (Manual) PT INR D-Dimer ABG pH POC ABG pCO2 POC ABG pO2 ABG pO2 ABG HCO3 ABG O2 Saturation ABG Base Excess ABG Hemoglobin ABG Oxyhemoglobin ABG Potassium ABG Glucose Oxyhemoglobin Carboxyhemoglobin Sodium Potassium Chloride Carbon Dioxide BUN Creatinine Glucose POC Glucose 108 H 119 H 129 H Calcium Ferritin Total Bilirubin Alkaline Phosphatase Lactate Dehydrogenase Total Creatine Kinase CK-MB (CK-2) Rel Index Troponin T C-Reactive Protein Total Protein Albumin Prealbumin LDL Cholesterol Direct Arterial Blood Glucose Arterial Blood Ionized Calcium Urine WBC (Auto) 03/28/20 03/28/20 03/28/20 10:28 10:28 11:36 WBC 23.6 H RBC 3.62 L Hgb 10.0 L Hct 30.8 L MCV MCH RDW 16.4 H Plt Count Lymph % (Auto) Lymph # (Auto) [place] # (Auto) Seg Neutrophils % Seg Neuts % (Manual) 89.0 H Lymphocytes % (Manual) 5.0 L Monocytes % (Manual) Basophils % (Manual) Seg Neutrophils # Seg Neutrophils # Man 21.0 H Lymphocytes # (Manual) Monocytes # (Manual) 1.2 H Eosinophils # (Manual) Basophils # (Manual) 0.2 H PT INR D-Dimer ABG pH POC ABG pCO2 POC ABG pO2 ABG pO2 ABG HCO3 ABG O2 Saturation ABG Base Excess ABG Hemoglobin ABG Oxyhemoglobin ABG Potassium ABG Glucose Oxyhemoglobin Carboxyhemoglobin Sodium 134 L Potassium Chloride 94.2 L Carbon Dioxide 35 H BUN Creatinine < 0.2 L Glucose 134 H POC Glucose Calcium Ferritin Total Bilirubin Alkaline Phosphatase Lactate Dehydrogenase Total Creatine Kinase CK-MB (CK-2) Rel Index Troponin T C-Reactive Protein Total Protein Albumin Prealbumin LDL Cholesterol Direct Arterial Blood Glucose Arterial Blood Ionized Calcium Urine WBC (Auto) 39.0 H 03/28/20 03/28/20 03/28/20 11:51 17:08 17:17 WBC RBC Hgb Hct MCV MCH RDW Plt Count Lymph % (Auto) Lymph # (Auto) [place] # (Auto) Seg Neutrophils % Seg Neuts % (Manual) Lymphocytes % (Manual) Monocytes % (Manual) Basophils % (Manual) Seg Neutrophils # Seg Neutrophils # Man Lymphocytes # (Manual) Monocytes # (Manual) Eosinophils # (Manual) Basophils # (Manual) PT INR D-Dimer ABG pH POC ABG pCO2 POC ABG pO2 ABG pO2 ABG HCO3 ABG O2 Saturation ABG Base Excess ABG Hemoglobin ABG Oxyhemoglobin ABG Potassium ABG Glucose Oxyhemoglobin Carboxyhemoglobin Sodium Potassium Chloride Carbon Dioxide BUN Creatinine Glucose POC Glucose 123 H 112 H Calcium Ferritin Total Bilirubin Alkaline Phosphatase Lactate Dehydrogenase Total Creatine Kinase 47 L CK-MB (CK-2) Rel Index 4.6 H Troponin T 0.090 H C-Reactive Protein Total Protein Albumin Prealbumin LDL Cholesterol Direct Arterial Blood Glucose Arterial Blood Ionized Calcium Urine WBC (Auto) 03/28/20 03/29/20 03/29/20 23:22 05:22 10:58 WBC RBC Hgb Hct MCV MCH RDW Plt Count Lymph % (Auto) Lymph # (Auto) [place] # (Auto) Seg Neutrophils % Seg Neuts % (Manual) Lymphocytes % (Manual) Monocytes % (Manual) Basophils % (Manual) Seg Neutrophils # Seg Neutrophils # Man Lymphocytes # (Manual) Monocytes # (Manual) Eosinophils # (Manual) Basophils # (Manual) PT INR D-Dimer ABG pH POC ABG pCO2 POC ABG pO2 ABG pO2 ABG HCO3 ABG O2 Saturation ABG Base Excess ABG Hemoglobin ABG Oxyhemoglobin ABG Potassium ABG Glucose Oxyhemoglobin Carboxyhemoglobin Sodium Potassium Chloride Carbon Dioxide BUN Creatinine Glucose POC Glucose 122 H 116 H 133 H Calcium Ferritin Total Bilirubin Alkaline Phosphatase Lactate Dehydrogenase Total Creatine Kinase CK-MB (CK-2) Rel Index Troponin T C-Reactive Protein Total Protein Albumin Prealbumin LDL Cholesterol Direct Arterial Blood Glucose Arterial Blood Ionized Calcium Urine WBC (Auto) 03/29/20 03/29/20 03/30/20 17:18 23:14 04:57 WBC RBC Hgb Hct MCV MCH RDW Plt Count Lymph % (Auto) Lymph # (Auto) [place] # (Auto) Seg Neutrophils % Seg Neuts % (Manual) Lymphocytes % (Manual) Monocytes % (Manual) Basophils % (Manual) Seg Neutrophils # Seg Neutrophils # Man Lymphocytes # (Manual) Monocytes # (Manual) Eosinophils # (Manual) Basophils # (Manual) PT INR D-Dimer ABG pH POC ABG pCO2 POC ABG pO2 ABG pO2 ABG HCO3 ABG O2 Saturation ABG Base Excess ABG Hemoglobin ABG Oxyhemoglobin ABG Potassium ABG Glucose Oxyhemoglobin Carboxyhemoglobin Sodium Potassium Chloride Carbon Dioxide BUN Creatinine Glucose POC Glucose 111 H 114 H 130 H Calcium Ferritin Total Bilirubin Alkaline Phosphatase Lactate Dehydrogenase Total Creatine Kinase CK-MB (CK-2) Rel Index Troponin T C-Reactive Protein Total Protein Albumin Prealbumin LDL Cholesterol Direct Arterial Blood Glucose Arterial Blood Ionized Calcium Urine WBC (Auto) 03/30/20 03/30/20 03/30/20 11:38 14:47 14:47 WBC 19.9 H RBC Hgb 10.9 L Hct 34.4 L MCV MCH 27 L RDW 16.5 H Plt Count 441 H Lymph % (Auto) 6.4 L Lymph # (Auto) [place] # (Auto) 1.4 H Seg Neutrophils % 86.1 H Seg Neuts % (Manual) Lymphocytes % (Manual) Monocytes % (Manual) Basophils % (Manual) Seg Neutrophils # 17.1 H Seg Neutrophils # Man Lymphocytes # (Manual) Monocytes # (Manual) Eosinophils # (Manual) Basophils # (Manual) PT INR D-Dimer ABG pH POC ABG pCO2 POC ABG pO2 ABG pO2 ABG HCO3 ABG O2 Saturation ABG Base Excess ABG Hemoglobin ABG Oxyhemoglobin ABG Potassium ABG Glucose Oxyhemoglobin Carboxyhemoglobin Sodium 133 L Potassium Chloride 94.6 L Carbon Dioxide 33 H BUN Creatinine < 0.2 L Glucose 194 H POC Glucose 139 H Calcium Ferritin Total Bilirubin Alkaline Phosphatase Lactate Dehydrogenase Total Creatine Kinase CK-MB (CK-2) Rel Index Troponin T C-Reactive Protein Total Protein Albumin 2.8 L Prealbumin LDL Cholesterol Direct Arterial Blood Glucose Arterial Blood Ionized Calcium Urine WBC (Auto) 03/30/20 03/31/20 03/31/20 17:07 05:02 15:21 WBC RBC Hgb Hct MCV MCH RDW Plt Count Lymph % (Auto) Lymph # (Auto) [place] # (Auto) Seg Neutrophils % Seg Neuts % (Manual) Lymphocytes % (Manual) Monocytes % (Manual) Basophils % (Manual) Seg Neutrophils # Seg Neutrophils # Man Lymphocytes # (Manual) Monocytes # (Manual) Eosinophils # (Manual) Basophils # (Manual) PT INR D-Dimer ABG pH POC ABG pCO2 POC ABG pO2 ABG pO2 ABG HCO3 ABG O2 Saturation ABG Base Excess ABG Hemoglobin ABG Oxyhemoglobin ABG Potassium ABG Glucose Oxyhemoglobin Carboxyhemoglobin Sodium Potassium Chloride Carbon Dioxide BUN Creatinine Glucose POC Glucose 163 H 108 H 110 H Calcium Ferritin Total Bilirubin Alkaline Phosphatase Lactate Dehydrogenase Total Creatine Kinase CK-MB (CK-2) Rel Index Troponin T C-Reactive Protein Total Protein Albumin Prealbumin LDL Cholesterol Direct Arterial Blood Glucose Arterial Blood Ionized Calcium Urine WBC (Auto) 03/31/20 03/31/20 04/01/20 17:58 23:19 05:09 WBC RBC Hgb Hct MCV MCH RDW Plt Count Lymph % (Auto) Lymph # (Auto) [place] # (Auto) Seg Neutrophils % Seg Neuts % (Manual) Lymphocytes % (Manual) Monocytes % (Manual) Basophils % (Manual) Seg Neutrophils # Seg Neutrophils # Man Lymphocytes # (Manual) Monocytes # (Manual) Eosinophils # (Manual) Basophils # (Manual) PT INR D-Dimer ABG pH POC ABG pCO2 POC ABG pO2 ABG pO2 ABG HCO3 ABG O2 Saturation ABG Base Excess ABG Hemoglobin ABG Oxyhemoglobin ABG Potassium ABG Glucose Oxyhemoglobin Carboxyhemoglobin Sodium Potassium Chloride Carbon Dioxide BUN Creatinine Glucose POC Glucose 110 H 131 H 124 H Calcium Ferritin Total Bilirubin Alkaline Phosphatase Lactate Dehydrogenase Total Creatine Kinase CK-MB (CK-2) Rel Index Troponin T C-Reactive Protein Total Protein Albumin Prealbumin LDL Cholesterol Direct Arterial Blood Glucose Arterial Blood Ionized Calcium Urine WBC (Auto) 04/01/20 04/01/20 04/01/20 11:50 17:01 23:21 WBC RBC Hgb Hct MCV MCH RDW Plt Count Lymph % (Auto) Lymph # (Auto) [place] # (Auto) Seg Neutrophils % Seg Neuts % (Manual) Lymphocytes % (Manual) Monocytes % (Manual) Basophils % (Manual) Seg Neutrophils # Seg Neutrophils # Man Lymphocytes # (Manual) Monocytes # (Manual) Eosinophils # (Manual) Basophils # (Manual) PT INR D-Dimer ABG pH POC ABG pCO2 POC ABG pO2 ABG pO2 ABG HCO3 ABG O2 Saturation ABG Base Excess ABG Hemoglobin ABG Oxyhemoglobin ABG Potassium ABG Glucose Oxyhemoglobin Carboxyhemoglobin Sodium Potassium Chloride Carbon Dioxide BUN Creatinine Glucose POC Glucose 136 H 115 H 124 H Calcium Ferritin Total Bilirubin Alkaline Phosphatase Lactate Dehydrogenase Total Creatine Kinase CK-MB (CK-2) Rel Index Troponin T C-Reactive Protein Total Protein Albumin Prealbumin LDL Cholesterol Direct Arterial Blood Glucose Arterial Blood Ionized Calcium Urine WBC (Auto) 04/02/20 04/02/20 04/02/20 05:27 11:58 17:58 WBC RBC Hgb Hct MCV MCH RDW Plt Count Lymph % (Auto) Lymph # (Auto) [place] # (Auto) Seg Neutrophils % Seg Neuts % (Manual) Lymphocytes % (Manual) Monocytes % (Manual) Basophils % (Manual) Seg Neutrophils # Seg Neutrophils # Man Lymphocytes # (Manual) Monocytes # (Manual) Eosinophils # (Manual) Basophils # (Manual) PT INR D-Dimer ABG pH POC ABG pCO2 POC ABG pO2 ABG pO2 ABG HCO3 ABG O2 Saturation ABG Base Excess ABG Hemoglobin ABG Oxyhemoglobin ABG Potassium ABG Glucose Oxyhemoglobin Carboxyhemoglobin Sodium Potassium Chloride Carbon Dioxide BUN Creatinine Glucose POC Glucose 117 H 133 H 122 H Calcium Ferritin Total Bilirubin Alkaline Phosphatase Lactate Dehydrogenase Total Creatine Kinase CK-MB (CK-2) Rel Index Troponin T C-Reactive Protein Total Protein Albumin Prealbumin LDL Cholesterol Direct Arterial Blood Glucose Arterial Blood Ionized Calcium Urine WBC (Auto) 04/02/20 04/03/20 04/03/20 23:12 05:11 11:11 WBC RBC Hgb Hct MCV MCH RDW Plt Count Lymph % (Auto) Lymph # (Auto) [place] # (Auto) Seg Neutrophils % Seg Neuts % (Manual) Lymphocytes % (Manual) Monocytes % (Manual) Basophils % (Manual) Seg Neutrophils # Seg Neutrophils # Man Lymphocytes # (Manual) Monocytes # (Manual) Eosinophils # (Manual) Basophils # (Manual) PT INR D-Dimer ABG pH POC ABG pCO2 POC ABG pO2 ABG pO2 ABG HCO3 ABG O2 Saturation ABG Base Excess ABG Hemoglobin ABG Oxyhemoglobin ABG Potassium ABG Glucose Oxyhemoglobin Carboxyhemoglobin Sodium Potassium Chloride Carbon Dioxide BUN Creatinine Glucose POC Glucose 130 H 139 H 136 H Calcium Ferritin Total Bilirubin Alkaline Phosphatase Lactate Dehydrogenase Total Creatine Kinase CK-MB (CK-2) Rel Index Troponin T C-Reactive Protein Total Protein Albumin Prealbumin LDL Cholesterol Direct Arterial Blood Glucose Arterial Blood Ionized Calcium Urine WBC (Auto) 04/03/20 04/03/20 04/04/20 16:51 23:25 05:29 WBC RBC Hgb Hct MCV MCH RDW Plt Count Lymph % (Auto) Lymph # (Auto) [place] # (Auto) Seg Neutrophils % Seg Neuts % (Manual) Lymphocytes % (Manual) Monocytes % (Manual) Basophils % (Manual) Seg Neutrophils # Seg Neutrophils # Man Lymphocytes # (Manual) Monocytes # (Manual) Eosinophils # (Manual) Basophils # (Manual) PT INR D-Dimer ABG pH POC ABG pCO2 POC ABG pO2 ABG pO2 ABG HCO3 ABG O2 Saturation ABG Base Excess ABG Hemoglobin ABG Oxyhemoglobin ABG Potassium ABG Glucose Oxyhemoglobin Carboxyhemoglobin Sodium Potassium Chloride Carbon Dioxide BUN Creatinine Glucose POC Glucose 118 H 111 H 126 H Calcium Ferritin Total Bilirubin Alkaline Phosphatase Lactate Dehydrogenase Total Creatine Kinase CK-MB (CK-2) Rel Index Troponin T C-Reactive Protein Total Protein Albumin Prealbumin LDL Cholesterol Direct Arterial Blood Glucose Arterial Blood Ionized Calcium Urine WBC (Auto) 04/04/20 04/04/20 04/04/20 11:47 17:41 23:05 WBC RBC Hgb Hct MCV MCH RDW Plt Count Lymph % (Auto) Lymph # (Auto) [place] # (Auto) Seg Neutrophils % Seg Neuts % (Manual) Lymphocytes % (Manual) Monocytes % (Manual) Basophils % (Manual) Seg Neutrophils # Seg Neutrophils # Man Lymphocytes # (Manual) Monocytes # (Manual) Eosinophils # (Manual) Basophils # (Manual) PT INR D-Dimer ABG pH POC ABG pCO2 POC ABG pO2 ABG pO2 ABG HCO3 ABG O2 Saturation ABG Base Excess ABG Hemoglobin ABG Oxyhemoglobin ABG Potassium ABG Glucose Oxyhemoglobin Carboxyhemoglobin Sodium Potassium Chloride Carbon Dioxide BUN Creatinine Glucose POC Glucose 123 H 120 H 119 H Calcium Ferritin Total Bilirubin Alkaline Phosphatase Lactate Dehydrogenase Total Creatine Kinase CK-MB (CK-2) Rel Index Troponin T C-Reactive Protein Total Protein Albumin Prealbumin LDL Cholesterol Direct Arterial Blood Glucose Arterial Blood Ionized Calcium Urine WBC (Auto) 04/05/20 04/05/20 04/05/20 05:14 12:16 18:48 WBC RBC Hgb Hct MCV MCH RDW Plt Count Lymph % (Auto) Lymph # (Auto) [place] # (Auto) Seg Neutrophils % Seg Neuts % (Manual) Lymphocytes % (Manual) Monocytes % (Manual) Basophils % (Manual) Seg Neutrophils # Seg Neutrophils # Man Lymphocytes # (Manual) Monocytes # (Manual) Eosinophils # (Manual) Basophils # (Manual) PT INR D-Dimer ABG pH POC ABG pCO2 POC ABG pO2 ABG pO2 ABG HCO3 ABG O2 Saturation ABG Base Excess ABG Hemoglobin ABG Oxyhemoglobin ABG Potassium ABG Glucose Oxyhemoglobin Carboxyhemoglobin Sodium Potassium Chloride Carbon Dioxide BUN Creatinine Glucose POC Glucose 123 H 148 H 106 H Calcium Ferritin Total Bilirubin Alkaline Phosphatase Lactate Dehydrogenase Total Creatine Kinase CK-MB (CK-2) Rel Index Troponin T C-Reactive Protein Total Protein Albumin Prealbumin LDL Cholesterol Direct Arterial Blood Glucose Arterial Blood Ionized Calcium Urine WBC (Auto) 04/06/20 04/06/20 04/06/20 00:47 03:26 08:24 WBC RBC Hgb Hct MCV MCH RDW Plt Count Lymph % (Auto) Lymph # (Auto) [place] # (Auto) Seg Neutrophils % Seg Neuts % (Manual) Lymphocytes % (Manual) Monocytes % (Manual) Basophils % (Manual) Seg Neutrophils # Seg Neutrophils # Man Lymphocytes # (Manual) Monocytes # (Manual) Eosinophils # (Manual) Basophils # (Manual) PT INR D-Dimer ABG pH POC ABG pCO2 POC ABG pO2 ABG pO2 ABG HCO3 ABG O2 Saturation ABG Base Excess ABG Hemoglobin ABG Oxyhemoglobin ABG Potassium ABG Glucose Oxyhemoglobin Carboxyhemoglobin Sodium Potassium Chloride Carbon Dioxide BUN Creatinine Glucose POC Glucose 129 H 134 H 131 H Calcium Ferritin Total Bilirubin Alkaline Phosphatase Lactate Dehydrogenase Total Creatine Kinase CK-MB (CK-2) Rel Index Troponin T C-Reactive Protein Total Protein Albumin Prealbumin LDL Cholesterol Direct Arterial Blood Glucose Arterial Blood Ionized Calcium Urine WBC (Auto) 04/06/20 04/06/20 04/06/20 11:16 16:27 23:01 WBC RBC Hgb Hct MCV MCH RDW Plt Count Lymph % (Auto) Lymph # (Auto) [place] # (Auto) Seg Neutrophils % Seg Neuts % (Manual) Lymphocytes % (Manual) Monocytes % (Manual) Basophils % (Manual) Seg Neutrophils # Seg Neutrophils # Man Lymphocytes # (Manual) Monocytes # (Manual) Eosinophils # (Manual) Basophils # (Manual) PT INR D-Dimer ABG pH POC ABG pCO2 POC ABG pO2 ABG pO2 ABG HCO3 ABG O2 Saturation ABG Base Excess ABG Hemoglobin ABG Oxyhemoglobin ABG Potassium ABG Glucose Oxyhemoglobin Carboxyhemoglobin Sodium Potassium Chloride Carbon Dioxide BUN Creatinine Glucose POC Glucose 131 H 107 H 125 H Calcium Ferritin Total Bilirubin Alkaline Phosphatase Lactate Dehydrogenase Total Creatine Kinase CK-MB (CK-2) Rel Index Troponin T C-Reactive Protein Total Protein Albumin Prealbumin LDL Cholesterol Direct Arterial Blood Glucose Arterial Blood Ionized Calcium Urine WBC (Auto) 04/07/20 04/07/20 04/07/20 05:24 12:41 17:40 WBC RBC Hgb Hct MCV MCH RDW Plt Count Lymph % (Auto) Lymph # (Auto) [place] # (Auto) Seg Neutrophils % Seg Neuts % (Manual) Lymphocytes % (Manual) Monocytes % (Manual) Basophils % (Manual) Seg Neutrophils # Seg Neutrophils # Man Lymphocytes # (Manual) Monocytes # (Manual) Eosinophils # (Manual) Basophils # (Manual) PT INR D-Dimer ABG pH POC ABG pCO2 POC ABG pO2 ABG pO2 ABG HCO3 ABG O2 Saturation ABG Base Excess ABG Hemoglobin ABG Oxyhemoglobin ABG Potassium ABG Glucose Oxyhemoglobin Carboxyhemoglobin Sodium Potassium Chloride Carbon Dioxide BUN Creatinine Glucose POC Glucose 125 H 145 H 123 H Calcium Ferritin Total Bilirubin Alkaline Phosphatase Lactate Dehydrogenase Total Creatine Kinase CK-MB (CK-2) Rel Index Troponin T C-Reactive Protein Total Protein Albumin Prealbumin LDL Cholesterol Direct Arterial Blood Glucose Arterial Blood Ionized Calcium Urine WBC (Auto) 04/07/20 04/08/20 04/08/20 23:22 05:40 11:29 WBC RBC Hgb Hct MCV MCH RDW Plt Count Lymph % (Auto) Lymph # (Auto) [place] # (Auto) Seg Neutrophils % Seg Neuts % (Manual) Lymphocytes % (Manual) Monocytes % (Manual) Basophils % (Manual) Seg Neutrophils # Seg Neutrophils # Man Lymphocytes # (Manual) Monocytes # (Manual) Eosinophils # (Manual) Basophils # (Manual) PT INR D-Dimer ABG pH POC ABG pCO2 POC ABG pO2 ABG pO2 ABG HCO3 ABG O2 Saturation ABG Base Excess ABG Hemoglobin ABG Oxyhemoglobin ABG Potassium ABG Glucose Oxyhemoglobin Carboxyhemoglobin Sodium Potassium Chloride Carbon Dioxide BUN Creatinine Glucose POC Glucose 133 H 125 H 116 H Calcium Ferritin Total Bilirubin Alkaline Phosphatase Lactate Dehydrogenase Total Creatine Kinase CK-MB (CK-2) Rel Index Troponin T C-Reactive Protein Total Protein Albumin Prealbumin LDL Cholesterol Direct Arterial Blood Glucose Arterial Blood Ionized Calcium Urine WBC (Auto) 04/08/20 04/09/20 04/09/20 17:43 05:47 12:22 WBC RBC Hgb Hct MCV MCH RDW Plt Count Lymph % (Auto) Lymph # (Auto) [place] # (Auto) Seg Neutrophils % Seg Neuts % (Manual) Lymphocytes % (Manual) Monocytes % (Manual) Basophils % (Manual) Seg Neutrophils # Seg Neutrophils # Man Lymphocytes # (Manual) Monocytes # (Manual) Eosinophils # (Manual) Basophils # (Manual) PT INR D-Dimer ABG pH POC ABG pCO2 POC ABG pO2 ABG pO2 ABG HCO3 ABG O2 Saturation ABG Base Excess ABG Hemoglobin ABG Oxyhemoglobin ABG Potassium ABG Glucose Oxyhemoglobin Carboxyhemoglobin Sodium Potassium Chloride Carbon Dioxide BUN Creatinine Glucose POC Glucose 123 H 108 H 116 H Calcium Ferritin Total Bilirubin Alkaline Phosphatase Lactate Dehydrogenase Total Creatine Kinase CK-MB (CK-2) Rel Index Troponin T C-Reactive Protein Total Protein Albumin Prealbumin LDL Cholesterol Direct Arterial Blood Glucose Arterial Blood Ionized Calcium Urine WBC (Auto) 04/09/20 17:24 WBC RBC Hgb Hct MCV MCH RDW Plt Count Lymph % (Auto) Lymph # (Auto) [place] # (Auto) Seg Neutrophils % Seg Neuts % (Manual) Lymphocytes % (Manual) Monocytes % (Manual) Basophils % (Manual) Seg Neutrophils # Seg Neutrophils # Man Lymphocytes # (Manual) Monocytes # (Manual) Eosinophils # (Manual) Basophils # (Manual) PT INR D-Dimer ABG pH POC ABG pCO2 POC ABG pO2 ABG pO2 ABG HCO3 ABG O2 Saturation ABG Base Excess ABG Hemoglobin ABG Oxyhemoglobin ABG Potassium ABG Glucose Oxyhemoglobin Carboxyhemoglobin Sodium Potassium Chloride Carbon Dioxide BUN Creatinine Glucose POC Glucose 108 H Calcium Ferritin Total Bilirubin Alkaline Phosphatase Lactate Dehydrogenase Total Creatine Kinase CK-MB (CK-2) Rel Index Troponin T C-Reactive Protein Total Protein Albumin Prealbumin LDL Cholesterol Direct Arterial Blood Glucose Arterial Blood Ionized Calcium Urine WBC (Auto) Allied health notes reviewed: RT
[2020-04-10] MEDS: MORPHINE 2 MG/1 ML INJ IV PRN ×4 (05:34→22:32)
--- NOTE | 2020-04-10 08:12 | Progress Note ---
Assessment and Plan Assessment and plan: --Acute hypoxic hypercapnic respiratory failure; Tracheostomy on ventilatory support Wean as tolerated, continue supportive care --History of ALS - Stable --Elevated D-dimers; CTA chest, lower extremity venous Doppler both are negative Lovenox DVT prophylaxis --Bilateral pneumonia; probably community-acquired Completed the treatment, continue supportive care --Sepsis secondary to pneumonia; completed the treatment resolved --Elevated troponin non-ST elevation IA type II Continue current management --Febrile illness; secondary to pneumonia Complete antibiotics , resolved --DVT prophylaxis; Lovenox. We will closely monitor the patient and adjust management as needed Plan of care reviewed with the patient's nurse The high probability OF a clinically significant sudden or life-threatening deterioration of the cardiorespiratory system and endocrine system required my full and direct attention, intervention and postoperative management. The aggregate critical care time was 32 minutes. The time is in addition to time spent performing reported procedures but includes the followin: Data review and interpretation 2: Patient assessment and monitoring of vital signs 3: Documentation 4:: Medication orders and management 02/26/2020. Blood cultures are negative x48 hours and Covid testing negative as well. Continue antibiotics per ID recommendations for community-acquired bila teral pneumonia. Cardiology consultation for elevated troponin. Check echocardiogram. 02/27/2020. Events of yesterday noted with asystole following V. fib arrest. Patient currently on AC mode rate 20, tidal volume 400, FiO2 50% and a PEEP of 6. Follow-up echocardiogram for elevated troponin. Cardiology suspects NSTEMI Type 2 in the setting of acute resp failure. Chest CTA and BLE Dopplers neg. we will discontinue Decadron given the Covid PCR is negative. 02/25/2020. CTA of the chest reveals no PE but does illustrate the bilateral pneumonia. Doppler ultrasound also negative for DVT. Blood cultures are pending. Await COVID-19 testing. Patient currently requiring BiPAP IPAP 24/EPAP 6 with FiO2 of 25%. Continue O2 and BiPAP as clinically indicated. ID and pulmonary consulted. 02/26/2020. Blood cultures are negative x48 hours and Covid testing negative as well. Continue antibiotics per ID recommendations for community-acquired bilateral pneumonia. Cardiology consultation for elevated troponin. Check echocardiogram. 02/27/2020. Events of yesterday noted with asystole following V. fib arrest. Patient currently on AC mode rate 20, tidal volume 400, FiO2 50% and a PEEP of 6. Follow-up echocardiogram for elevated troponin. Cardiology suspects NSTEMI Type 2 in the setting of acute resp failure. Chest CTA and BLE Dopplers neg. we will discontinue Decadron given the Covid PCR is negative. 02/28/2020. I spoke with the sister Felisa Eli who is the power of sports attorney re garding advanced directives and she instructed me that she would like to continue with aggressive care at this time. I informed her of the guarded prognosis and high mortality/morbidity and she voiced understanding. Patient currently with AC mode ventilation rate 18, tidal volume 400, FiO2 40% and a PEEP of 6. Continue antibiotics for pneumonia. ID previously consulted. Also consult neurology with regards to ALS. 02/29/2020; patient is intubated and on CPAP patient is alert and oriented. Patient has ALS. Dr. Álvarez spoke with his sister and she wants aggressive care. Continue antibiotics for pneumonia. Neurology consulted for ALS. Prognosis poor 03/01/2020; patient is intubated and on CPAP, patient is alert and oriented. I spoke with his 2 sisters about the management plan. 03/02/2020; patient is intubated and on CPAP. Patient was alert and oriented. I spoke with Dr. mohr and he thinks patient may need mechanical ventilation, likely his disease progressed. Dr. Flowers did debridement this morning. 03/03/2020; patient is intubated and on CPAP, patient was on trilogy and BiPAP at home. Patient has ALS. on spontaneous breathing trial. Patient is alert and oriented but quadriplegic. Patient has severe bilateral pneumonia and is on cefepime and Vanco, ID is following. Patient has sacral decubitus ulcer and debridement was done by Dr. Flowers and there is no osteomyelitis. 03/05. Patient still on broad-spectrum antibiotics. Status post sacral decubit us ulcer debridements-no osteomyelitis. Patient is on AC 25/400/30% PEEP 5. No blood gas results today. 03/06. Plan for tracheostomy by surgery. Still remains intubated. Labs reviewed-sodium 150. Started on free water 200 every 8hr. trend sodium. 03/07: s/p trach placement today, patient placed back on mechanical ventilation with trach. Plan to resume tube feeding with NG tube. Continue to monitor vitals, monitor BMP. 03/08: Patient noted to have distended abdomen with low urinary output. Obtain bladder scan rule out urine retention, UA and urine culture, continue to follow clinically. 03/09: Patient noted to have low blood pressure with SBP as low as 70s. Ordered for 500 mils normal saline bolus. CT abdomen showed bladder outlet obstruction, urology consulted. 03/10: placed on drake by urology o/n, improved urine outpt. cont to monitor BMP. resuded TF - cont free water with TF. wean off from vent as tolerated. 03/11: Vitals stable. cont TF, wean off from vent as tolerated. start on 1/2 NS for hypernatremia - follow BMP 03/12: wean off vent as tolerated, plan for speech eval, cont Tf for now, cont iv fluid 03/13: unable to wean off from vent, unable to do speech therapy eval. will need PEG tube, cont supportive care for now, cont NG tube feeding 03/14: consulted GI for PEg placemnet, cont supportive care. remains on vent at night 03/15: Discussed with GI, plan for PEG tube placement possibly tomorrow. Continue supportive care and wean off from vent as tolerated. Hold Lovenox dose tonight. 03/16: family didnot consent for PEG placement yesterday. I spoke with the daughter today and she is now agreeable for PEG tube. I explained the necessity of the procedure with RN to the patient also and he nodded started on tube feeding, for the procedure. will cont supportive care. planned for PEG tube placement tomorrow. 03/17: s/p PEG placement today, patient tolerated well, cont supportive care 03/18: Started on tube feeding with new PEG tube, continue to wean off vent as tolerated 03/19: cont to monitor with supportive care, wean off vent as tolerated 03/20: Continue to wean off vent as tolerated -but failing weaning trial. Still requiring vent support at night. Currently on PEG tube for tube feed. 03/21. Pt with PSV trials with FiO@ 30%, PEEP 6, PS 10. Currently on PEG tube for tube feed. 03/22/2020. Continue PSV trials per pulmonary. Continue bronchodilators. Patient tolerating tube feedings. Continue Robinul for secretion control. 03/23/2020. Continue PSV trials per pulmonary. Continue bronchodilators. Continue Scopolamine and Robinul for secretion control. Trach care/airway management. Mobility protocols for pressure ulcer prophylaxis. LTAC evaluation per case management 03/24/2020. Continue PSV trials with current settings pressure support 10, PEEP 6 and FiO2 30%. Continue bronchodilators/nebulizer. Continue Scopolamine and Robinul for secretion control. Trach care/airway management. Mobility pr otocols for pressure ulcer prophylaxis. LTAC evaluation per case management 03/25/2020. Pulmonary to proceed with T-piece trials today. Continue bronchodilators/nebulizer. Continue Scopolamine and Robinul for secretion control. Trach care/airway management. Mobility protocols for pressure ulcer prophylaxis. 03/26/2020. Patient currently with PSV 10/6 at FiO2 of 30%. Continue weaning and T-piece trials per protocol. Continue bronchodilators/nebulizer. Continue Scopolamine and Robinul for secretion control. Trach care/airway management. Mobility protocols for pressure ulcer prophylaxis. Continue tube feeding with aspiration precautions. 03/27/2020. Patient currently with PSV 10/6 at FiO2 of 30%. Continue weaning and T-piece trials per protocol. Continue bronchodilators/nebulizer. Continue Scopolamine and Robinul for secretion control. Trach care/airway management. Mobility protocols for pressure ulcer prophylaxis. Continue tube feeding with aspiration precautions. 03/28. Had temp 100.7F. He has been off antibiotics. Will send blood culture, ua, urine culture and chest xray. Had chest pain overnight and trop was elevated as well. Cardiology to evaluate 03/29. Has back pain due to position. He mentions his chest pain is positional. Has no other complaints. Still on mechanical ventilation 03/30. No chest pain today. Labs reviewed. Discussed chest pain with cardiology and team advised no further work up at this time. Can follow up with cardiology in the office after hospitalization 03/31. Lidocaine patch for lower back pain. 04/01. Discharge planning underway. CM notes reviewed. Discussed with daughter 04/02 - . CM trying to arrange discharge. Continue PSV trials. Discussed with patients significant other 04/04/2020; CM is working for discharge arrangement. Continue PSV trials. 04/05/2020; patient was seen and evaluated this morning and no change from baseline. Continue with PSV trials. Follow with supervisor rod placing for discharge planning. 04/06/2020;patient was seen and evaluated this morning and no change from baseline. Continue with PSV trials. Follow with supervisor rod placing for discharge planning. 04/07/2020; patient was seen and evaluated this morning and no change from baseline. Continue with PSV trials. Follow with supervisor rod placing for discharge planning. 04/08/2020; patient is vent dependent. Discharge is per supervisor rod placing. 04/09/2020 patient is vent dependent, possible LTAC placement 04/10/2020; tracheostomy on vent, vent dependent pending LTAC placement History Interval history: I have seen and examined the patient at the bedside this morning in ICU Patient's chart and medications reviewed Patient has history of ALS and chronic tracheostomy on vent Patient is cachectic emaciated, disheveled In mild distress Vital signs reviewed Hospitalist Physical - Constitutional Vitals: Temp Pulse Resp BP Pulse Ox 98.2 F 115 H 22 107/73 94 04/10/20 00:00 04/10/20 06:30 04/10/20 06:30 04/10/20 06:30 04/10/20 06:30 General appearance: Present: no acute distress, well-nourished - EENT Eyes: Present: PERRL, EOM intact ENT: other (ET tube in place) - Neck Neck: Present: supple, normal ROM - Respiratory Respiratory effort: normal Respiratory: bilateral: diminished, rhonchi, negative: rales, wheezing - Cardiovascular Rhythm: regular Heart Sounds: Present: S1 & S2 - Extremities Extremities: no ischemia, No edema - Abdominal General gastrointestinal: soft, non-tender, non-distended, normal bowel sounds - Integumentary Integumentary: Present: clear, warm - Psychiatric Psychiatric: other (On ventilatory support) - Neurologic Neurologic: other (On ventilatory support) HEART Score - HEART Score Troponin: Troponin T 0.090 ng/mL (0.00-0.029) H 03/28/20 17:17 Results - Labs CBC & Chem 7: 03/30/20 14:47 03/30/20 14:47 Labs: Laboratory Last Values WBC 19.9 K/mm3 (4.5-11.0) H 03/30/20 14:47 RBC 4.01 M/mm3 (3.65-5.03) 03/30/20 14:47 Hgb 10.9 gm/dl (11.8-15.2) L 03/30/20 14:47 Hct 34.4 % (35.5-45.6) L 03/30/20 14:47 MCV 86 fl (84-94) 03/30/20 14:47 MCH 27 pg (28-32) L 03/30/20 14:47 MCHC 32 % (32-34) 03/30/20 14:47 RDW 16.5 % (13.2-15.2) H 03/30/20 14:47 Plt Count 441 K/mm3 (140-440) H 03/30/20 14:47 Lymph % (Auto) 6.4 % (13.4-35.0) L 03/30/20 14:47 Kimball % (Auto) 7.2 % (0.0-7.3) 03/30/20 14:47 Eos % (Auto) 0.1 % (0.0-4.3) 03/30/20 14:47 Baso % (Auto) 0.2 % (0.0-1.8) 03/30/20 14:47 Lymph # (Auto) 1.3 K/mm3 (1.2-5.4) 03/30/20 14:47 Kimball # (Auto) 1.4 K/mm3 (0.0-0.8) H 03/30/20 14:47 Eos # (Auto) 0.0 K/mm3 (0.0-0.4) 03/30/20 14:47 Baso # (Auto) 0.0 K/mm3 (0.0-0.1) 03/30/20 14:47 Add Manual Diff Complete 03/28/20 10:28 Total Counted 100 03/28/20 10:28 Seg Neutrophils % 86.1 % (40.0-70.0) H 03/30/20 14:47 Seg Neuts % (Manual) 89.0 % (40.0-70.0) H 03/28/20 10:28 Band Neutrophils % 0 % 03/28/20 10:28 Lymphocytes % (Manual) 5.0 % (13.4-35.0) L 03/28/20 10:28 Reactive Lymphs % (Man) 0 % 03/28/20 10:28 Monocytes % (Manual) 5.0 % (0.0-7.3) 03/28/20 10:28 Eosinophils % (Manual) 0 % (0.0-4.3) 03/28/20 10:28 Basophils % (Manual) 1.0 % (0.0-1.8) 03/28/20 10:28 Metamyelocytes % 0 % 03/28/20 10:28 Myelocytes % 0 % 03/28/20 10:28 Promyelocytes % 0 % 03/28/20 10:28 Blast Cells % 0 % 03/28/20 10:28 Nucleated RBC % Not Reportable 03/28/20 10:28 Seg Neutrophils # 17.1 K/mm3 (1.8-7.7) H 03/30/20 14:47 Seg Neutrophils # Man 21.0 K/mm3 (1.8-7.7) H 03/28/20 10:28 Band Neutrophils # 0.0 K/mm3 03/28/20 10:28 Lymphocytes # (Manual) 1.2 K/mm3 (1.2-5.4) 03/28/20 10:28 Abs React Lymphs (Man) 0.0 K/mm3 03/28/20 10:28 Monocytes # (Manual) 1.2 K/mm3 (0.0-0.8) H 03/28/20 10:28 Eosinophils # (Manual) 0.0 K/mm3 (0.0-0.4) 03/28/20 10:28 Basophils # (Manual) 0.2 K/mm3 (0.0-0.1) H 03/28/20 10:28 Metamyelocytes # 0.0 K/mm3 03/28/20 10:28 Myelocytes # 0.0 K/mm3 03/28/20 10:28 Promyelocytes # 0.0 K/mm3 03/28/20 10:28 Blast Cells # 0.0 K/mm3 03/28/20 10:28 WBC Morphology Not Reportable 03/28/20 10:28 Hypersegmented Neuts Not Reportable 03/28/20 10:28 Hyposegmented Neuts Not Reportable 03/28/20 10:28 Hypogranular Neuts Not Reportable 03/28/20 10:28 Smudge Cells Not Reportable 03/28/20 10:28 Toxic Granulation 1+ 03/28/20 10:28 Toxic Vacuolation Not Reportable 03/28/20 10:28 Dohle Bodies Not Reportable 03/28/20 10:28 Pelger-Huet Anomaly Not Reportable 03/28/20 10:28 Robert Rods Not Reportable 03/28/20 10:28 Platelet Estimate Consistent w auto 03/28/20 10:28 Clumped Platelets Not Reportable 03/28/20 10:28 Plt Clumps, EDTA Not Reportable 03/28/20 10:28 Large Platelets Not Reportable 03/28/20 10:28 Giant Platelets Not Reportable 03/28/20 10:28 Platelet Satelliting Not Reportable 03/28/20 10:28 Plt Morphology Comment Not Reportable 03/28/20 10:28 RBC Morphology Not Reportable 03/28/20 10:28 Dimorphic RBCs Not Reportable 03/28/20 10:28 Polychromasia Not Reportable 03/28/20 10:28 Hypochromasia Not Reportable 03/28/20 10:28 Poikilocytosis Not Reportable 03/28/20 10:28 Anisocytosis 1+ 03/28/20 10:28 Microcytosis Not Reportable 03/28/20 10:28 Macrocytosis Not Reportable 03/28/20 10:28 Spherocytes Not Reportable 03/28/20 10:28 Pappenheimer Bodies Not Reportable 03/28/20 10:28 Sickle Cells Not Reportable 03/28/20 10:28 Target Cells Not Reportable 03/28/20 10:28 Tear Drop Cells Not Reportable 03/28/20 10:28 Ovalocytes Not Reportable 03/28/20 10:28 Stomatocytes Few 03/17/20 04:40 Helmet Cells Not Reportable 03/28/20 10:28 Gregory-Ruffin Bodies Not Reportable 03/28/20 10:28 [place] Rings Not Reportable 03/28/20 10:28 [place] Cells Not Reportable 03/28/20 10:28 Bite Cells Not Reportable 03/28/20 10:28 Crenated Cell Not Reportable 03/28/20 10:28 Elliptocytes Not Reportable 03/28/20 10:28 Acanthocytes (Spur) Not Reportable 03/28/20 10:28 Rouleaux Not Reportable 03/28/20 10:28 Hemoglobin C Crystals Not Reportable 03/28/20 10:28 Schistocytes Not Reportable 03/28/20 10:28 Malaria parasites Not Reportable 03/28/20 10:28 [place] Bodies Not Reportable 03/28/20 10:28 Hem Pathologist Commnt No 03/28/20 10:28 PT 15.6 Sec. (12.2-14.9) H 02/24/20 09:19 INR 1.21 (0.87-1.13) H 02/24/20 09:19 APTT 25.4 Sec. (24.2-36.6) 02/24/20 09:19 D-Dimer 1311.96 ng/mlDDU (0-234) H 02/24/20 09:19 ABG pH 7.371 (7.320-7.450) 03/08/20 12:34 POC ABG pCO2 63.1 mmHg (32.0-48.0) H 03/08/20 12:34 ABG pCO2 60.1 mm Hg 03/06/20 04:34 POC ABG pO2 90.5 mmHg (83-108) 03/08/20 12:34 ABG pO2 88.6 mm Hg (80.0-90.0) 03/06/20 04:34 POC ABG HCO3 35.7 03/08/20 12:34 ABG HCO3 37.9 mmol/L (20.0-26.0) H 03/06/20 04:34 ABG O2 Saturation 97.0 % (95.0-99.0) 03/06/20 04:34 ABG O2 Content 14.3 (0.0-44) 03/06/20 04:34 POC ABG Base Excess 8.7 03/08/20 12:34 ABG Base Excess 11.4 mmol/L (-2.0-3.0) H 03/06/20 04:34 ABG Hemoglobin 10.9 (12.0-17.5) L 03/08/20 12:34 ABG Oxyhemoglobin 95.9 (94-98) 03/08/20 12:34 ABG Carboxyhemoglobin 1.7 % (0.0-5.0) 03/06/20 04:34 ABG Methemoglobin 0.3 (0.0-1.5) 03/08/20 12:34 ABG Sodium 143.6 mmol/L (136.0-145.0) 03/08/20 12:34 ABG Potassium 3.8 mmol/L (3.40-4.50) 03/08/20 12:34 ABG Chloride 102.0 mmol/L (98-107) 03/08/20 12:34 ABG Glucose 176 mg/dL (65-95) H 03/08/20 12:34 Oxyhemoglobin 94.7 % (95.0-99.0) L 03/06/20 04:34 Carboxyhemoglobin 0.7 (0.5-1.5) 03/08/20 12:34 FiO2 30 03/08/20 12:34 Sodium 133 mmol/L (137-145) L 03/30/20 14:47 Potassium 4.7 mmol/L (3.6-5.0) 03/30/20 14:47 Chloride 94.6 mmol/L (98-107) L 03/30/20 14:47 Carbon Dioxide 33 mmol/L (22-30) H 03/30/20 14:47 Anion Gap 10 mmol/L 03/30/20 14:47 BUN 16 mg/dL (9-20) 03/30/20 14:47 Creatinine < 0.2 mg/dL (0.8-1.3) L 03/30/20 14:47 Estimated GFR > 60 ml/min 03/30/20 14:47 BUN/Creatinine Ratio 80 % 03/30/20 14:47 Glucose 194 mg/dL (75-100) H 03/30/20 14:47 POC Glucose 122 mg/dL (70-105) H 04/10/20 06:10 Lactic Acid 1.00 mmol/L (0.7-2.0) 02/24/20 12:07 Calcium 9.1 mg/dL (8.4-10.2) 03/30/20 14:47 Phosphorus 3.30 mg/dL (2.5-4.5) 03/29/20 14:35 Magnesium 2.00 mg/dL (1.7-2.3) 03/29/20 14:35 Ferritin 1715.0 ng/mL (30.0-300.0) H 02/24/20 10:01 Total Bilirubin 0.40 mg/dL (0.1-1.2) 03/30/20 14:47 AST 22 units/L (5-40) 03/30/20 14:47 ALT 16 units/L (7-56) 03/30/20 14:47 Alkaline Phosphatase 78 units/L (35-129) 03/30/20 14:47 Lactate Dehydrogenase 303 units/L (91-180) H 02/24/20 09:19 Total Creatine Kinase 47 units/L (55-170) L 03/28/20 17:17 CK-MB (CK-2) 2.2 ng/mL (0.0-4.0) 03/28/20 17:17 CK-MB (CK-2) Rel Index 4.6 (0-4) H 03/28/20 17:17 Troponin T 0.090 ng/mL (0.00-0.029) H 03/28/20 17:17 C-Reactive Protein 4.70 mg/dL (0.00-1.30) H 02/28/20 11:05 NT-Pro-B Natriuret Pep 48.30 pg/mL (0-900) 02/24/20 09:19 Total Protein 7.7 g/dL (6.3-8.2) 03/30/20 14:47 Albumin 2.8 g/dL (3.9-5) L 03/30/20 14:47 Albumin/Globulin Ratio 0.6 % 03/30/20 14:47 Prealbumin 0.090 g/L (0.200-0.400) L 02/28/20 12:54 Triglycerides 34 mg/dL (2-149) 03/22/20 18:00 Cholesterol 104 mg/dL (50-199) 03/22/20 18:00 LDL Cholesterol Direct 54 mg/dL (50-130) 03/22/20 18:00 HDL Cholesterol 40 mg/dL (40-59) 03/22/20 18:00 Cholesterol/HDL Ratio 2.60 % 03/22/20 18:00 Procalcitonin < 0.05 ng/mL (<0.15) 03/28/20 17:12 Arterial Blood Glucose 176 mg/dL (65-95) H 03/08/20 12:34 Arterial Blood Ionized Calcium 4.5 mg/dL (4.6-5.3) L 03/08/20 12:34 Urine Color Yellow (Yellow) 03/28/20 11:36 Urine Turbidity Hazy (Clear) 03/28/20 11:36 Urine pH 5.0 (5.0-7.0) 03/28/20 11:36 Ur Specific [place] 1.026 (1.003-1.030) 03/28/20 11:36 Urine Protein 100 mg/dl mg/dL (Negative) 03/28/20 11:36 Urine Glucose (UA) Neg mg/dL (Negative) 03/28/20 11:36 Urine Ketones Neg mg/dL (Negative) 03/28/20 11:36 Urine Blood Neg (Negative) 03/28/20 11:36 Urine Nitrite Neg (Negative) 03/28/20 11:36 Urine Bilirubin Neg (Negative) 03/28/20 11:36 Urine Urobilinogen 4.0 mg/dL (<2.0) 03/28/20 11:36 Ur Leukocyte Esterase Mod (Negative) 03/28/20 11:36 Urine WBC (Auto) 39.0 /HPF (0.0-6.0) H 03/28/20 11:36 Urine RBC (Auto) 16.0 /HPF (0.0-6.0) 03/28/20 11:36 U Epithel Cells (Auto) < 1.0 /HPF (0-13.0) 03/08/20 08:57 Urine Bacteria (Auto) 2+ /HPF (Negative) 03/28/20 11:36 Urine Mucus 3+ /HPF 03/28/20 11:36 Urine Yeast (Budding) 2+ /HPF 03/28/20 11:36 Vancomycin Trough 8.0 ug/mL (5.0-20.0) 03/04/20 08:59 Coronavirus (PCR) Negative (Negative) 02/25/20 09:03 - Diagnostic Impressions Diagnostic Impressions: Echocardiogram 02/26/20 10:41 Transthoracic Echocardiogram Indication: Elevated Trop BP: 116/75 HR: 85 Conclusions *Global left ventricular wall motion and contractility are within normal limits. *The estimated ejection fraction is 50-55%. *Abnormal left ventricular diastolic filling is observed, consistent with impaired relaxation. *There is no pericardial effusion. Findings Left Ventricle: The left ventricular chamber size is normal. Global left ventricular wall motion and contractility are within normal limits. Global left ventricular systolic function is normal. The estimated ejection fraction is 50-55%. Abnormal left ventricular diastolic filling is observed, consistent with impaired relaxation. Left Atrium: The left atrial chamber size is normal. Right Ventricle: The right ventricular cavity size is normal. Right Atrium: The right atrial cavity size is normal. Aortic Valve: Mild aortic leaflet calcification is visualized. There is no evidence of aortic regurgitation. Mitral Valve: The mitral valve leaflets are mildly thickened. There is no evidence of mitral regurgitation. Tricuspid Valve: The tricuspid valve leaflets are normal. There is trace tricuspid regurgitation. The right ventricular systolic pressure is calculated at 29 mmHg. Pulmonic Valve: The pulmonic valve is not well visualized. Pericardium: There is no pericardial effusion. Aorta: The aorta appears normal. Venous: The inferior vena cava is dilated. There is less than 50% respiratory change in the inferior vena cava dimension. Measurements Chambers 2D Name Value Normal Range IVSd (2D) 0.97 cm (0.6 - 1.1) LVPWd (2D) 0.93 cm (0.6 - 1.1) LVIDd (2D) 4 cm (3.7 - 5.6) LVIDs (2D) 2.73 cm (2 - 3.8) LV FS (2D) 31.67 % - EF Teichholz (2D) 60.23 % - Ao root diameter (2D) 3.51 cm (2 - 3.7) Volumes/Mass Name Value Normal Range LA ESV SP 4CH (A/L) 8.43 ml - LA ESV SP 2CH (A/L) 18.89 ml - LA ESV BP (A/L) 13.02 ml - LA ESV BP (A/L) index 8.8 ml/m2 - LA ESV SP 4CH (MOD) 7.22 ml - LA ESV SP 2CH (MOD) 18.15 ml - LA ESV BP (MOD) 11.47 ml - LA ESV BP (MOD) index 7.75 ml/m2 - Diastolic/Systolic Function Name Value Normal Range MV E-wave Vmax 0.51 m/sec - MV deceleration time 180.22 msec - MV A-wave Vmax 0.62 m/sec - MV E:A ratio 0.82 ratio - Aortic Valve Name Value Normal Range AV Vmax 1.17 m/sec - AV VTI 19.71 cm - AV peak gradient 5.44 mmHg - AV mean gradient 3.38 mmHg - LVOT diameter 2.26 cm - LVOT Vmax 0.89 m/sec - LVOT VTI 13.72 cm - LVOT peak gradient 3.17 mmHg - LVOT mean gradient 1.67 mmHg - SV LVOT 55.03 ml - SHARAD (continuity Vmax) 3.06 cm2 - SHARAD (continuity VTI) 2.79 cm2 - Tricuspid Valve Name Value Normal Range TR Vmax 2.3 m/sec - TR peak gradient 21 mmHg - RAP 8 mmHg - RVSP 29 mmHg - IVC diameter 2.59 cm (1.2 - 2.3) Pulmonic Valve/Qp:Qs Name Value Normal Range PV acceleration time 68.51 msec - Drake/IV: Voiding Method Indwelling Catheter IV Catheter Type [Left Hand] Peripheral IV IV Catheter Type [Right Hand] Peripheral IV IV Catheter Type [Left Wrist] Peripheral IV IV Catheter Type [Right Peripheral IV Forearm] IV Catheter Type [Right Triple Lumen Cath Internal Jugular] IV Catheter Type [Left Forearm INT / Saline Lock ] IV Catheter Type [Right Triple Lumen Cath Femoral] IV Catheter Type [Right INT / Saline Lock Antecubital] Active Medications - Current Medications Current Medications: Generic Name Dose Route Start Last Admin Trade Name Jimmieq PRN Reason Stop Dose Admin Acetaminophen 650 mg 02/24/20 15:13 04/08/20 16:00 Tylenol PO 650 mg Q4H PRN Administration Pain, Mild (1-3) Albuterol 2.5 mg 02/24/20 15:13 Proventil IH Q4HRT PRN Shortness Of Breath Alprazolam 0.5 mg 03/30/20 14:19 04/09/20 21:14 Xanax PO 0.5 mg Q8H PRN Administration Anxiety Lipase/Protease/Amylase 1 each 02/26/20 11:[address] 10,500 Unit FEEDTUBE PRN PRN For Clogged Feeding Tube Baclofen 10 mg 04/03/20 12:00 04/09/20 21:13 Lioresal PO 10 mg BID ALISA Administration Bisacodyl 10 mg 03/12/20 18:00 03/15/20 17:50 Dulcolax SD 10 mg QDAY PRN Administration Bowel Movement Docusate Sodium 100 mg 04/03/20 12:00 04/09/20 21:13 Colace FEEDTUBE 100 mg BID ALISA Administration Enoxaparin Sodium 40 mg 03/20/20 22:00 04/09/20 21:12 Enoxaparin SUB-Q 40 mg QDAY@2200 ALISA Administration Protocol Glycopyrrolate 2 mg 03/26/20 08:00 04/09/20 21:19 Robinul PO 2 mg TID ALISA Administration Lansoprazole 30 mg 02/28/20 10:00 04/09/20 09:59 Prevacid Solutab FEEDTUBE 30 mg QDAY ALISA Administration Lidocaine 1 each 03/31/20 10:00 04/09/20 10:02 Lidoderm 5% TD 1 each QDAY ALISA Administration Metoprolol Tartrate 12.5 mg 02/24/20 22:00 04/09/20 21:14 Metoprolol PO Not Given BID ALISA Morphine Sulfate 2 mg 02/29/20 16:42 04/10/20 05:34 Morphine IV 2 mg Q4H PRN Administration Pain, Moderate (4-6) Pregabalin 150 mg 04/03/20 12:00 04/09/20 21:14 Pregabalin PO 150 mg BID ALISA Administration Scopolamine 1 each 03/03/20 14:00 04/08/20 09:59 Transderm-Scop TD 1 each Q3D ALISA Administration Senna 17.2 mg 04/03/20 22:00 04/09/20 21:14 Senokot PO 17.2 mg QHS ALISA Administration Simple Syrup 15 ml 02/26/20 11:16 Simple Syrup FEEDTUBE PRN PRN Hypoglycemia Simple Syrup 30 ml 02/26/20 11:16 Simple Syrup FEEDTUBE PRN PRN Hypoglycemia Sodium Bicarbonate 325 mg 02/26/20 11:16 Sodium Bicarbonate FEEDTUBE PRN PRN For Clogged Feeding Tube Sodium Hypochlorite 1 applic 03/31/20 13:00 04/09/20 10:00 Dakin's Half Strength TP 1 applicatio BID ALISA Administration Tamsulosin HCl 0.4 mg 03/09/20 18:00 04/09/20 09:59 Tamsulosin 0.4 Mg Cap PO 0.4 mg QDAY ALISA Administration Zolpidem Tartrate 10 mg 03/31/20 20:15 04/09/20 21:14 Ambien PO 10 mg QHS PRN Administration Sleep Nutrition/Malnutrition Assess - Dietary Evaluation Nutrition/Malnutrition Findings: Nutrition Notes Start: 02/26/20 10:40 Freq: Status: Active Protocol: Document 04/04/20 12:26 AB (Rec: 04/04/20 12:35 AB [id number]) Co-Sign 04/04/20 12:26 LM Nutrition Notes Initial or Follow up Reassessment Current Diagnosis Decubitus(Pressure Ulcer), Sepsis,Respiratory Failure Other Pertinent Diagnosis COVID-19 (-), ALS, pneumonia, Hip/buttock PU Current Diet Vital AF 1.2 at 75ml/hr (goal rate) Labs/Tests Reviewed Pertinent Medications Reviewed Height 6 ft Weight 65.8 kg [place] Body Weight (kg) 80.90 BMI 19.6 Weight Status Appropriate Subjective/Other Information F/U for TF tolerance. TF is running at goal and pt is tolerating it. Pt had BM over night, per nurse. Percent of energy/protein needs met: 100%/100% Burn Absent Trauma Absent GI Symptoms None Skin Integrity/Comment Pressure Ulcer Stage 2 Current % PO Negligible Minimum of two criteria Yes Body Fat Depletion Mild depletion (non-severe) Muscle Mass Mild Depletion (non-severe) Reduced Policewoman Strength Measurably Reduced (severe) #3 Nutrition Diagnosis Malnutrition Diagnosis Progress(for reassessment Continues documentation) #2 Nutrition Diagnosis Inadequate oral intake Diagnosis Progress(for reassessment Continues documentation) #1 Nutrition Diagnosis Increased nutrient needs ( specify in comment below) Diagnosis Progress(for reassessment Continues documentation) Is patient on ventilator? Yes Is Patient Ambulatory and/or Out of Bed No REE-([facility]-confined to bed) 1818.072 Kcal/Kg value to use for calculation 35 Approximate Energy Requirements Using 2303 kcal/Kg Calculation Used for Recommendations Kcal/kg Additional Notes Protein needs: 88-147 g (1.2-2 g/ kg ABW) Fluid: 1ml/kcal Nutrition Intervention Change Diet Order: Continue TF Nutrition Support: Vital AF 1.2 at 75ml/hr. Flush 200ml q4h For hyponatremia, flush 150 mL q4h Kcal 2,160 Protein (gm) 135 Fluid (mL) 1,460 Add Supplement/Snack (indicate name/kcal Will BID /protein ) Provides kCal: 190 Provides Protein (gm) 5 Goal #1 Meet at least 80% of energy and protein needs via TF Goal #2 Wound healing Anticipated Discharge Needs: Unable to determine at this time Follow-Up By: 04/11/20 Additional Comments F/U for TF tolerance
[2020-04-10] MEDS: SODIUM HYPOCHLORITE, DAKIN'S 1/2 STRENGTH (0.25%) 473 ML TOPICAL SOLN TP SCH ×3 (08:38→22:14)
[2020-04-10] MEDS: PREGABALIN 75 MG CAP PO SCH ×2 (09:50→22:17)
[2020-04-10] MEDS: METOPROLOL TARTRATE 25 MG TAB PO SCH ×2 (09:51→22:16)
[2020-04-10] MEDS: TAMSULOSIN 0.4 MG CAP PO SCH (09:51)
[2020-04-10] MEDS: DOCUSATE SODIUM 100 MG/10 ML ORAL LIQD FEEDTUBE SCH ×2 (09:52→22:14)
[2020-04-10] MEDS: GLYCOPYRROLATE 1 MG TAB PO SCH ×3 (09:52→22:13)
[2020-04-10] MEDS: BACLOFEN 10 MG TAB PO SCH ×2 (09:53→22:16)
[2020-04-10] MEDS: LANSOPRAZOLE 30 MG SOLUTAB FEEDTUBE SCH (10:25)
[2020-04-10] MEDS: LIDOCAINE 5% 1 EACH PATCH TD SCH (10:25)
--- NOTE | 2020-04-10 14:04 | Progress Note ---
Assessment and Plan Patient awake. weak. Resting on assist control mechanical ventilation, rate 10, Tidal volume 400, FIO2 30%, PEEP 6 and O2 saturation running 97%. Patient running low grade temparature and has leukocytosis. Chest xray done 03/28/20 reported no acute findings. Patient guevara virus negative. I spent critical care time of 32 minutes, review the chart, examining the patient,Review chest xray, labs, talking to the nursing staff and respiratory therapist and work out plan of tratment in this critically ill patient. - Patient Problems (1) Acute on chronic respiratory failure with hypoxia and hypercapnia Current Visit: Yes Status: Acute Plan to address problem: Patient is on assist control mechanical ventilation, rate 10, tidal volume 400, FIO2 30%, PEEP 6. Albuterol inhaler 2 puffs po qid. Continue S/C Lovenox. Continue prevacid. (2) Bleeding from wound Current Visit: Yes Status: Acute Plan to address problem: Management primary care , surgery and wound care. (3) Elevated d-dimer Current Visit: Yes Status: Acute Plan to address problem: Patients venous doppler studies of legs, CTA chest reported VTE. Patient is on S/C Lovenox 40 mg qd. (4) Elevated troponin Current Visit: Yes Status: Acute Plan to address problem: Management as per primary care and cardiology (5) NSTEMI (non-ST elevated myocardial infarction) Current Visit: Yes Status: Acute Plan to address problem: Management as per cardiology. (6) Pneumonia Current Visit: Yes Status: Acute Qualifiers: Laterality: bilateral Plan to address problem: Patient was treated with ceftriaxone, zosyn and zithromax. Patient afebrile. Repeat chest xray 03/28/20 reported no acute fingings. Subjective Date of service: 04/10/20 Principal diagnosis: Ac on Ch Hypercapnic & hypoxemic Resp Failure; Severe Sepsis; Jamar PNA; ALS Interval history: Patient awake. weak. Resting on assist control mechanical ventilation, rate 10, Tidal volume 400, FIO2 30%, PEEP 6 and O2 saturation running 97%. Patient running low grade temparature and has leukocytosis. Chest xray done 03/28/20 reported no acute findings. Patient guevara virus negative. Objective Vital Signs - 12hr 04/10/20 04/10/20 04/10/20 02:15 02:30 02:45 Temperature Pulse Rate 105 H 101 H 100 H Respiratory 17 15 15 Rate Blood Pressure 102/64 104/68 109/70 O2 Sat by Pulse 95 Oximetry 04/10/20 04/10/20 04/10/20 03:00 03:15 03:30 Temperature Pulse Rate 104 H 102 H 101 H Respiratory 16 16 14 Rate Blood Pressure 113/71 102/69 108/68 O2 Sat by Pulse 94 93 Oximetry 04/10/20 04/10/20 04/10/20 03:45 04:00 04:14 Temperature Pulse Rate 102 H 111 H 109 H Respiratory 13 19 Rate Blood Pressure 105/66 110/68 O2 Sat by Pulse 93 94 Oximetry 04/10/20 04/10/20 04/10/20 04:15 04:16 04:30 Temperature Pulse Rate 112 H 109 H 103 H Respiratory 22 15 Rate Blood Pressure 111/72 111/72 106/70 O2 Sat by Pulse 86 92 95 Oximetry 04/10/20 04/10/20 04/10/20 04:45 05:00 05:15 Temperature Pulse Rate 109 H 111 H 100 H Respiratory 17 25 H 12 Rate Blood Pressure 107/73 111/76 109/71 O2 Sat by Pulse 92 95 Oximetry 04/10/20 04/10/20 04/10/20 05:30 05:45 06:00 Temperature Pulse Rate 99 H 115 H 115 H Respiratory 12 20 22 Rate Blood Pressure 112/73 114/76 117/76 O2 Sat by Pulse 97 97 Oximetry 04/10/20 04/10/20 04/10/20 06:15 06:30 06:45 Temperature Pulse Rate 117 H 115 H 115 H Respiratory 22 22 20 Rate Blood Pressure 106/72 107/73 99/66 O2 Sat by Pulse 97 94 97 Oximetry 04/10/20 04/10/20 04/10/20 07:00 07:15 07:30 Temperature Pulse Rate 114 H 116 H 113 H Respiratory 20 26 H 24 Rate Blood Pressure 106/68 111/72 99/69 O2 Sat by Pulse 95 93 97 Oximetry 04/10/20 04/10/20 04/10/20 07:45 07:50 07:52 Temperature Pulse Rate 104 H 113 H 109 H Respiratory 22 20 Rate Blood Pressure 109/75 109/75 109/75 O2 Sat by Pulse 100 100 100 Oximetry 04/10/20 04/10/20 04/10/20 08:00 08:15 08:30 Temperature 97.8 F Pulse Rate 109 H 110 H 109 H Respiratory 24 22 22 Rate Blood Pressure 114/74 111/74 118/77 O2 Sat by Pulse 99 99 100 Oximetry 04/10/20 04/10/20 04/10/20 08:45 09:00 09:15 Temperature Pulse Rate 110 H 108 H 108 H Respiratory 20 22 27 H Rate Blood Pressure 108/76 115/77 133/87 O2 Sat by Pulse 99 99 93 Oximetry 04/10/20 04/10/20 04/10/20 09:30 09:45 10:00 Temperature Pulse Rate 112 H 108 H 110 H Respiratory 28 H 32 H 27 H Rate Blood Pressure 111/76 125/86 113/77 O2 Sat by Pulse 99 92 97 Oximetry 04/10/20 04/10/20 04/10/20 10:15 10:30 10:45 Temperature Pulse Rate 108 H 109 H 111 H Respiratory 21 28 H 24 Rate Blood Pressure 133/94 118/82 105/74 O2 Sat by Pulse 95 98 96 Oximetry 04/10/20 04/10/20 04/10/20 11:00 11:10 11:15 Temperature Pulse Rate 109 H 111 H 107 H Respiratory 21 16 Rate Blood Pressure 111/74 111/74 105/74 O2 Sat by Pulse 100 100 Oximetry 04/10/20 04/10/20 04/10/20 11:30 11:45 12:00 Temperature 97.5 F L Pulse Rate 107 H 101 H 110 H Respiratory 18 13 24 Rate Blood Pressure 110/75 116/77 114/76 O2 Sat by Pulse 98 98 Oximetry 04/10/20 04/10/20 04/10/20 12:15 12:30 12:45 Temperature Pulse Rate 94 H 103 H 112 H Respiratory 15 16 26 H Rate Blood Pressure 105/69 111/76 108/73 O2 Sat by Pulse 99 Oximetry 04/10/20 04/10/20 04/10/20 13:00 13:15 13:30 Temperature Pulse Rate 113 H 114 H 119 H Respiratory 17 16 21 Rate Blood Pressure 106/71 112/73 115/77 O2 Sat by Pulse 98 94 96 Oximetry 04/10/20 13:45 Temperature Pulse Rate 120 H Respiratory 17 Rate Blood Pressure 122/86 O2 Sat by Pulse 93 Oximetry Constitutional: no acute distress, alert, other (thin middle aged male with normal respiratory effort at rest on MVS) Eyes: non-icteric ENT: oropharynx moist, other (S/P Tracheostomy) Neck: supple, no lymphadenopathy, no JVD Effort: mildly labored Ascultation: Bilateral: diminished breath sounds, wheezes, rhonchi Percussion: Bilateral: not dull Cardiovascular: regular rate and rhythm, other (S1,S2, no murmurs) Gastrointestinal: normoactive bowel sounds, soft, non-tender, non-distended, other (+ distended but non tender suprapubis) Integumentary: normal, decubitus ulcer (sacral / gluteal) Extremities: no cyanosis, no edema, pulses normal, other (atrophic looking limbs) Neurologic: pupils equal and round, other (motor strength in extremities 1-2/5, awake, alert, mouths words to make needs known) Psychiatric: depressed CBC and BMP: 03/30/20 14:47 03/30/20 14:47 ABG, PT/INR, D-dimer: ABG ABG pH 7.371 (7.320-7.450) 03/08/20 12:34 POC ABG pCO2 63.1 mmHg (32.0-48.0) H 03/08/20 12:34 ABG pCO2 60.1 mm Hg 03/06/20 04:34 POC ABG pO2 90.5 mmHg (83-108) 03/08/20 12:34 ABG pO2 88.6 mm Hg (80.0-90.0) 03/06/20 04:34 POC ABG HCO3 35.7 03/08/20 12:34 ABG O2 Saturation 97.0 % (95.0-99.0) 03/06/20 04:34 PT/INR, D-dimer PT 15.6 Sec. (12.2-14.9) H 02/24/20 09:19 INR 1.21 (0.87-1.13) H 02/24/20 09:19 D-Dimer 1311.96 ng/mlDDU (0-234) H 02/24/20 09:19 Abnormal lab findings: Abnormal Labs 02/24/20 02/24/20 02/24/20 09:19 09:19 09:19 WBC 20.2 H RBC 5.05 H Hgb Hct MCV MCH RDW 15.3 H Plt Count Lymph % (Auto) Lymph # (Auto) Lucas # (Auto) Seg Neutrophils % Seg Neuts % (Manual) 86.0 H Lymphocytes % (Manual) 1.0 L Monocytes % (Manual) Basophils % (Manual) Seg Neutrophils # Seg Neutrophils # Man 17.4 H Lymphocytes # (Manual) 0.2 L Monocytes # (Manual) Eosinophils # (Manual) Basophils # (Manual) PT 15.6 H INR 1.21 H D-Dimer 1311.96 H ABG pH POC ABG pCO2 POC ABG pO2 ABG pO2 ABG HCO3 ABG O2 Saturation ABG Base Excess ABG Hemoglobin ABG Oxyhemoglobin ABG Potassium ABG Glucose Oxyhemoglobin Carboxyhemoglobin Sodium 135 L Potassium 3.2 L Chloride 92.2 L Carbon Dioxide BUN 6 L Creatinine < 0.2 L Glucose 124 H POC Glucose Calcium Ferritin Total Bilirubin 2.30 H Alkaline Phosphatase 132 H Lactate Dehydrogenase Total Creatine Kinase CK-MB (CK-2) Rel Index Troponin T 0.080 H C-Reactive Protein Total Protein Albumin 3.6 L Prealbumin LDL Cholesterol Direct 41 L Arterial Blood Glucose Arterial Blood Ionized Calcium Urine WBC (Auto) 02/24/20 02/24/20 02/24/20 09:19 09:58 10:01 WBC RBC Hgb Hct MCV MCH RDW Plt Count Lymph % (Auto) Lymph # (Auto) Lucas # (Auto) Seg Neutrophils % Seg Neuts % (Manual) Lymphocytes % (Manual) Monocytes % (Manual) Basophils % (Manual) Seg Neutrophils # Seg Neutrophils # Man Lymphocytes # (Manual) Monocytes # (Manual) Eosinophils # (Manual) Basophils # (Manual) PT INR D-Dimer ABG pH 7.176 L* POC ABG pCO2 POC ABG pO2 ABG pO2 91.2 H ABG HCO3 ABG O2 Saturation ABG Base Excess -4.6 L ABG Hemoglobin ABG Oxyhemoglobin ABG Potassium ABG Glucose Oxyhemoglobin 92.6 L Carboxyhemoglobin Sodium Potassium Chloride Carbon Dioxide BUN Creatinine Glucose POC Glucose Calcium Ferritin 1715.0 H Total Bilirubin Alkaline Phosphatase Lactate Dehydrogenase 303 H Total Creatine Kinase CK-MB (CK-2) Rel Index Troponin T C-Reactive Protein 26.10 H Total Protein Albumin Prealbumin LDL Cholesterol Direct Arterial Blood Glucose Arterial Blood Ionized Calcium Urine WBC (Auto) 02/24/20 02/24/20 02/24/20 11:52 13:45 19:35 WBC RBC Hgb Hct MCV MCH RDW Plt Count Lymph % (Auto) Lymph # (Auto) Lucas # (Auto) Seg Neutrophils % Seg Neuts % (Manual) Lymphocytes % (Manual) Monocytes % (Manual) Basophils % (Manual) Seg Neutrophils # Seg Neutrophils # Man Lymphocytes # (Manual) Monocytes # (Manual) Eosinophils # (Manual) Basophils # (Manual) PT INR D-Dimer ABG pH 7.051 L* 7.300 L POC ABG pCO2 POC ABG pO2 ABG pO2 94.7 H 75.1 L ABG HCO3 18.0 L ABG O2 Saturation 93.5 L ABG Base Excess -6.8 L -7.8 L ABG Hemoglobin 13.2 L 11.9 L ABG Oxyhemoglobin ABG Potassium ABG Glucose Oxyhemoglobin 91.0 L 92.7 L Carboxyhemoglobin Sodium Potassium Chloride Carbon Dioxide BUN Creatinine Glucose POC Glucose Calcium Ferritin Total Bilirubin Alkaline Phosphatase Lactate Dehydrogenase Total Creatine Kinase CK-MB (CK-2) Rel Index Troponin T 0.034 H D C-Reactive Protein Total Protein Albumin Prealbumin LDL Cholesterol Direct Arterial Blood Glucose Arterial Blood Ionized Calcium Urine WBC (Auto) 02/25/20 02/25/20 02/25/20 04:00 04:00 12:26 WBC 22.9 H RBC Hgb Hct MCV 83 L MCH 27 L RDW Plt Count 468 H Lymph % (Auto) Lymph # (Auto) Lucas # (Auto) Seg Neutrophils % Seg Neuts % (Manual) 89.0 H Lymphocytes % (Manual) 7.0 L Monocytes % (Manual) Basophils % (Manual) Seg Neutrophils # Seg Neutrophils # Man 20.4 H Lymphocytes # (Manual) Monocytes # (Manual) Eosinophils # (Manual) Basophils # (Manual) PT INR D-Dimer ABG pH POC ABG pCO2 POC ABG pO2 ABG pO2 ABG HCO3 ABG O2 Saturation ABG Base Excess ABG Hemoglobin ABG Oxyhemoglobin ABG Potassium 2.6 L ABG Glucose 142 H Oxyhemoglobin Carboxyhemoglobin Sodium Potassium 3.2 L Chloride Carbon Dioxide 18 L BUN Creatinine 0.2 L Glucose 114 H POC Glucose Calcium Ferritin Total Bilirubin Alkaline Phosphatase Lactate Dehydrogenase Total Creatine Kinase CK-MB (CK-2) Rel Index Troponin T C-Reactive Protein Total Protein Albumin 3.5 L Prealbumin LDL Cholesterol Direct Arterial Blood Glucose 142 H Arterial Blood Ionized Calcium Urine WBC (Auto) 02/26/20 02/26/20 02/26/20 15:58 17:00 23:43 WBC RBC Hgb Hct MCV MCH RDW Plt Count Lymph % (Auto) Lymph # (Auto) Lucas # (Auto) Seg Neutrophils % Seg Neuts % (Manual) Lymphocytes % (Manual) Monocytes % (Manual) Basophils % (Manual) Seg Neutrophils # Seg Neutrophils # Man Lymphocytes # (Manual) Monocytes # (Manual) Eosinophils # (Manual) Basophils # (Manual) PT INR D-Dimer ABG pH 7.502 H POC ABG pCO2 POC ABG pO2 213.6 H ABG pO2 ABG HCO3 ABG O2 Saturation ABG Base Excess ABG Hemoglobin ABG Oxyhemoglobin 99.2 H ABG Potassium 2.9 L ABG Glucose 160 H Oxyhemoglobin Carboxyhemoglobin 0.4 L Sodium Potassium Chloride Carbon Dioxide BUN Creatinine Glucose POC Glucose 189 H 120 H Calcium Ferritin Total Bilirubin Alkaline Phosphatase Lactate Dehydrogenase Total Creatine Kinase CK-MB (CK-2) Rel Index Troponin T C-Reactive Protein Total Protein Albumin Prealbumin LDL Cholesterol Direct Arterial Blood Glucose 160 H Arterial Blood Ionized Calcium 4.5 L Urine WBC (Auto) 02/27/20 02/27/20 02/27/20 05:00 07:04 17:45 WBC RBC Hgb Hct MCV MCH RDW Plt Count Lymph % (Auto) Lymph # (Auto) Lucas # (Auto) Seg Neutrophils % Seg Neuts % (Manual) Lymphocytes % (Manual) Monocytes % (Manual) Basophils % (Manual) Seg Neutrophils # Seg Neutrophils # Man Lymphocytes # (Manual) Monocytes # (Manual) Eosinophils # (Manual) Basophils # (Manual) PT INR D-Dimer ABG pH 7.524 H POC ABG pCO2 POC ABG pO2 ABG pO2 ABG HCO3 ABG O2 Saturation ABG Base Excess ABG Hemoglobin ABG Oxyhemoglobin ABG Potassium 3.0 L ABG Glucose 143 H Oxyhemoglobin Carboxyhemoglobin Sodium Potassium Chloride Carbon Dioxide BUN Creatinine Glucose POC Glucose 154 H 175 H Calcium Ferritin Total Bilirubin Alkaline Phosphatase Lactate Dehydrogenase Total Creatine Kinase CK-MB (CK-2) Rel Index Troponin T C-Reactive Protein Total Protein Albumin Prealbumin LDL Cholesterol Direct Arterial Blood Glucose 143 H Arterial Blood Ionized Calcium Urine WBC (Auto) 02/27/20 02/28/20 02/28/20 Unknown 00:21 04:15 WBC 18.7 H RBC Hgb Hct MCV MCH RDW Plt Count Lymph % (Auto) 8.7 L Lymph # (Auto) Lucas # (Auto) 1.2 H Seg Neutrophils % 84.6 H Seg Neuts % (Manual) Lymphocytes % (Manual) Monocytes % (Manual) Basophils % (Manual) Seg Neutrophils # 15.9 H Seg Neutrophils # Man Lymphocytes # (Manual) Monocytes # (Manual) Eosinophils # (Manual) Basophils # (Manual) PT INR D-Dimer ABG pH POC ABG pCO2 POC ABG pO2 ABG pO2 ABG HCO3 ABG O2 Saturation ABG Base Excess ABG Hemoglobin ABG Oxyhemoglobin ABG Potassium ABG Glucose Oxyhemoglobin Carboxyhemoglobin Sodium Potassium 2.9 L* Chloride Carbon Dioxide 33 H D BUN Creatinine < 0.2 L Glucose 157 H POC Glucose 134 H Calcium Ferritin Total Bilirubin Alkaline Phosphatase Lactate Dehydrogenase Total Creatine Kinase CK-MB (CK-2) Rel Index Troponin T C-Reactive Protein Total Protein Albumin Prealbumin LDL Cholesterol Direct Arterial Blood Glucose Arterial Blood Ionized Calcium Urine WBC (Auto) 02/28/20 02/28/20 02/28/20 04:15 05:16 05:39 WBC RBC Hgb Hct MCV MCH RDW Plt Count Lymph % (Auto) Lymph # (Auto) Lucas # (Auto) Seg Neutrophils % Seg Neuts % (Manual) Lymphocytes % (Manual) Monocytes % (Manual) Basophils % (Manual) Seg Neutrophils # Seg Neutrophils # Man Lymphocytes # (Manual) Monocytes # (Manual) Eosinophils # (Manual) Basophils # (Manual) PT INR D-Dimer ABG pH POC ABG pCO2 POC ABG pO2 ABG pO2 142.9 H ABG HCO3 34.1 H ABG O2 Saturation ABG Base Excess 8.3 H ABG Hemoglobin ABG Oxyhemoglobin ABG Potassium ABG Glucose Oxyhemoglobin Carboxyhemoglobin Sodium 151 H Potassium Chloride Carbon Dioxide 32 H BUN Creatinine 0.2 L Glucose 167 H POC Glucose 138 H Calcium Ferritin Total Bilirubin Alkaline Phosphatase Lactate Dehydrogenase Total Creatine Kinase CK-MB (CK-2) Rel Index Troponin T C-Reactive Protein Total Protein Albumin Prealbumin LDL Cholesterol Direct Arterial Blood Glucose Arterial Blood Ionized Calcium Urine WBC (Auto) 02/28/20 02/28/20 02/28/20 11:05 11:33 12:54 WBC RBC Hgb Hct MCV MCH RDW Plt Count Lymph % (Auto) Lymph # (Auto) Lucas # (Auto) Seg Neutrophils % Seg Neuts % (Manual) Lymphocytes % (Manual) Monocytes % (Manual) Basophils % (Manual) Seg Neutrophils # Seg Neutrophils # Man Lymphocytes # (Manual) Monocytes # (Manual) Eosinophils # (Manual) Basophils # (Manual) PT INR D-Dimer ABG pH POC ABG pCO2 POC ABG pO2 ABG pO2 ABG HCO3 ABG O2 Saturation ABG Base Excess ABG Hemoglobin ABG Oxyhemoglobin ABG Potassium ABG Glucose Oxyhemoglobin Carboxyhemoglobin Sodium Potassium Chloride Carbon Dioxide BUN Creatinine Glucose POC Glucose 160 H Calcium Ferritin Total Bilirubin Alkaline Phosphatase Lactate Dehydrogenase Total Creatine Kinase CK-MB (CK-2) Rel Index Troponin T C-Reactive Protein 4.70 H Total Protein Albumin Prealbumin 0.090 L LDL Cholesterol Direct Arterial Blood Glucose Arterial Blood Ionized Calcium Urine WBC (Auto) 02/28/20 02/29/20 02/29/20 17:34 00:44 04:05 WBC 19.6 H RBC Hgb Hct MCV MCH 27 L RDW 15.4 H Plt Count Lymph % (Auto) Lymph # (Auto) Lucas # (Auto) Seg Neutrophils % Seg Neuts % (Manual) 86.0 H Lymphocytes % (Manual) 7.0 L Monocytes % (Manual) Basophils % (Manual) Seg Neutrophils # Seg Neutrophils # Man 16.9 H Lymphocytes # (Manual) Monocytes # (Manual) 1.2 H Eosinophils # (Manual) Basophils # (Manual) PT INR D-Dimer ABG pH POC ABG pCO2 POC ABG pO2 ABG pO2 ABG HCO3 ABG O2 Saturation ABG Base Excess ABG Hemoglobin ABG Oxyhemoglobin ABG Potassium ABG Glucose Oxyhemoglobin Carboxyhemoglobin Sodium Potassium Chloride Carbon Dioxide BUN Creatinine Glucose POC Glucose 136 H 156 H Calcium Ferritin Total Bilirubin Alkaline Phosphatase Lactate Dehydrogenase Total Creatine Kinase CK-MB (CK-2) Rel Index Troponin T C-Reactive Protein Total Protein Albumin Prealbumin LDL Cholesterol Direct Arterial Blood Glucose Arterial Blood Ionized Calcium Urine WBC (Auto) 02/29/20 02/29/20 02/29/20 04:05 05:14 05:33 WBC RBC Hgb Hct MCV MCH RDW Plt Count Lymph % (Auto) Lymph # (Auto) Lucas # (Auto) Seg Neutrophils % Seg Neuts % (Manual) Lymphocytes % (Manual) Monocytes % (Manual) Basophils % (Manual) Seg Neutrophils # Seg Neutrophils # Man Lymphocytes # (Manual) Monocytes # (Manual) Eosinophils # (Manual) Basophils # (Manual) PT INR D-Dimer ABG pH POC ABG pCO2 54.3 H POC ABG pO2 124.8 H ABG pO2 ABG HCO3 ABG O2 Saturation ABG Base Excess ABG Hemoglobin ABG Oxyhemoglobin ABG Potassium ABG Glucose 185 H Oxyhemoglobin Carboxyhemoglobin Sodium 148 H Potassium Chloride Carbon Dioxide 33 H BUN Creatinine < 0.2 L Glucose 173 H POC Glucose 152 H Calcium Ferritin Total Bilirubin Alkaline Phosphatase Lactate Dehydrogenase Total Creatine Kinase CK-MB (CK-2) Rel Index Troponin T C-Reactive Protein Total Protein Albumin Prealbumin LDL Cholesterol Direct Arterial Blood Glucose 185 H Arterial Blood Ionized Calcium Urine WBC (Auto) 03/01/20 03/01/20 03/01/20 00:00 03:45 04:33 WBC 23.1 H RBC Hgb Hct MCV MCH 27 L RDW 15.3 H Plt Count Lymph % (Auto) Lymph # (Auto) Lucas # (Auto) Seg Neutrophils % Seg Neuts % (Manual) 92.0 H Lymphocytes % (Manual) 6.0 L Monocytes % (Manual) Basophils % (Manual) Seg Neutrophils # Seg Neutrophils # Man 21.3 H Lymphocytes # (Manual) Monocytes # (Manual) Eosinophils # (Manual) 0.5 H Basophils # (Manual) PT INR D-Dimer ABG pH 7.492 H POC ABG pCO2 POC ABG pO2 ABG pO2 157.1 H ABG HCO3 32.3 H ABG O2 Saturation ABG Base Excess 8.1 H ABG Hemoglobin 13.2 L ABG Oxyhemoglobin ABG Potassium ABG Glucose Oxyhemoglobin Carboxyhemoglobin Sodium Potassium Chloride Carbon Dioxide BUN Creatinine Glucose POC Glucose 109 H Calcium Ferritin Total Bilirubin Alkaline Phosphatase Lactate Dehydrogenase Total Creatine Kinase CK-MB (CK-2) Rel Index Troponin T C-Reactive Protein Total Protein Albumin Prealbumin LDL Cholesterol Direct Arterial Blood Glucose Arterial Blood Ionized Calcium Urine WBC (Auto) 03/01/20 03/01/20 03/01/20 04:33 05:29 12:32 WBC RBC Hgb Hct MCV MCH RDW Plt Count Lymph % (Auto) Lymph # (Auto) Lucas # (Auto) Seg Neutrophils % Seg Neuts % (Manual) Lymphocytes % (Manual) Monocytes % (Manual) Basophils % (Manual) Seg Neutrophils # Seg Neutrophils # Man Lymphocytes # (Manual) Monocytes # (Manual) Eosinophils # (Manual) Basophils # (Manual) PT INR D-Dimer ABG pH POC ABG pCO2 POC ABG pO2 ABG pO2 ABG HCO3 ABG O2 Saturation ABG Base Excess ABG Hemoglobin ABG Oxyhemoglobin ABG Potassium ABG Glucose Oxyhemoglobin Carboxyhemoglobin Sodium 146 H Potassium Chloride Carbon Dioxide 32 H BUN Creatinine < 0.2 L Glucose 120 H POC Glucose 120 H 128 H Calcium Ferritin Total Bilirubin Alkaline Phosphatase Lactate Dehydrogenase Total Creatine Kinase CK-MB (CK-2) Rel Index Troponin T C-Reactive Protein Total Protein Albumin Prealbumin LDL Cholesterol Direct Arterial Blood Glucose Arterial Blood Ionized Calcium Urine WBC (Auto) 03/01/20 03/01/20 03/02/20 17:38 23:46 06:13 WBC RBC Hgb Hct MCV MCH RDW Plt Count Lymph % (Auto) Lymph # (Auto) Lucas # (Auto) Seg Neutrophils % Seg Neuts % (Manual) Lymphocytes % (Manual) Monocytes % (Manual) Basophils % (Manual) Seg Neutrophils # Seg Neutrophils # Man Lymphocytes # (Manual) Monocytes # (Manual) Eosinophils # (Manual) Basophils # (Manual) PT INR D-Dimer ABG pH POC ABG pCO2 POC ABG pO2 ABG pO2 ABG HCO3 ABG O2 Saturation ABG Base Excess ABG Hemoglobin ABG Oxyhemoglobin ABG Potassium ABG Glucose Oxyhemoglobin Carboxyhemoglobin Sodium Potassium Chloride Carbon Dioxide BUN Creatinine Glucose POC Glucose 114 H 121 H 120 H Calcium Ferritin Total Bilirubin Alkaline Phosphatase Lactate Dehydrogenase Total Creatine Kinase CK-MB (CK-2) Rel Index Troponin T C-Reactive Protein Total Protein Albumin Prealbumin LDL Cholesterol Direct Arterial Blood Glucose Arterial Blood Ionized Calcium Urine WBC (Auto) 03/02/20 03/02/20 03/03/20 09:47 09:47 10:21 WBC 23.6 H RBC Hgb Hct MCV MCH RDW 15.3 H Plt Count 494 H Lymph % (Auto) Lymph # (Auto) Lucas # (Auto) Seg Neutrophils % Seg Neuts % (Manual) 85.0 H Lymphocytes % (Manual) 6.0 L Monocytes % (Manual) Basophils % (Manual) Seg Neutrophils # Seg Neutrophils # Man 20.1 H Lymphocytes # (Manual) Monocytes # (Manual) 1.7 H Eosinophils # (Manual) Basophils # (Manual) PT INR D-Dimer ABG pH POC ABG pCO2 POC ABG pO2 ABG pO2 ABG HCO3 ABG O2 Saturation ABG Base Excess ABG Hemoglobin ABG Oxyhemoglobin ABG Potassium 3.3 L ABG Glucose 158 H Oxyhemoglobin Carboxyhemoglobin Sodium Potassium Chloride Carbon Dioxide BUN Creatinine < 0.2 L Glucose 177 H POC Glucose Calcium Ferritin Total Bilirubin Alkaline Phosphatase Lactate Dehydrogenase Total Creatine Kinase CK-MB (CK-2) Rel Index Troponin T C-Reactive Protein Total Protein Albumin Prealbumin LDL Cholesterol Direct Arterial Blood Glucose 158 H Arterial Blood Ionized Calcium Urine WBC (Auto) 03/03/20 03/04/20 03/04/20 21:30 00:00 12:23 WBC RBC Hgb Hct MCV MCH RDW Plt Count Lymph % (Auto) Lymph # (Auto) Lucas # (Auto) Seg Neutrophils % Seg Neuts % (Manual) Lymphocytes % (Manual) Monocytes % (Manual) Basophils % (Manual) Seg Neutrophils # Seg Neutrophils # Man Lymphocytes # (Manual) Monocytes # (Manual) Eosinophils # (Manual) Basophils # (Manual) PT INR D-Dimer ABG pH 7.328 L POC ABG pCO2 POC ABG pO2 ABG pO2 68.4 L ABG HCO3 35.0 H ABG O2 Saturation 93.9 L ABG Base Excess 6.8 H ABG Hemoglobin 12.7 L ABG Oxyhemoglobin ABG Potassium ABG Glucose Oxyhemoglobin 91.9 L Carboxyhemoglobin Sodium Potassium Chloride Carbon Dioxide BUN Creatinine Glucose POC Glucose 187 H 163 H Calcium Ferritin Total Bilirubin Alkaline Phosphatase Lactate Dehydrogenase Total Creatine Kinase CK-MB (CK-2) Rel Index Troponin T C-Reactive Protein Total Protein Albumin Prealbumin LDL Cholesterol Direct Arterial Blood Glucose Arterial Blood Ionized Calcium Urine WBC (Auto) 03/04/20 03/04/20 03/05/20 18:15 21:30 06:02 WBC RBC Hgb Hct MCV MCH RDW Plt Count Lymph % (Auto) Lymph # (Auto) Lucas # (Auto) Seg Neutrophils % Seg Neuts % (Manual) Lymphocytes % (Manual) Monocytes % (Manual) Basophils % (Manual) Seg Neutrophils # Seg Neutrophils # Man Lymphocytes # (Manual) Monocytes # (Manual) Eosinophils # (Manual) Basophils # (Manual) PT INR D-Dimer ABG pH 7.297 L POC ABG pCO2 POC ABG pO2 ABG pO2 ABG HCO3 41.0 H ABG O2 Saturation ABG Base Excess 11.0 H ABG Hemoglobin 13.1 L ABG Oxyhemoglobin ABG Potassium ABG Glucose Oxyhemoglobin 94.5 L Carboxyhemoglobin Sodium Potassium Chloride Carbon Dioxide BUN Creatinine Glucose POC Glucose 192 H 127 H Calcium Ferritin Total Bilirubin Alkaline Phosphatase Lactate Dehydrogenase Total Creatine Kinase CK-MB (CK-2) Rel Index Troponin T C-Reactive Protein Total Protein Albumin Prealbumin LDL Cholesterol Direct Arterial Blood Glucose Arterial Blood Ionized Calcium Urine WBC (Auto) 03/05/20 03/05/20 03/06/20 12:09 16:42 00:24 WBC RBC Hgb Hct MCV MCH RDW Plt Count Lymph % (Auto) Lymph # (Auto) Lucas # (Auto) Seg Neutrophils % Seg Neuts % (Manual) Lymphocytes % (Manual) Monocytes % (Manual) Basophils % (Manual) Seg Neutrophils # Seg Neutrophils # Man Lymphocytes # (Manual) Monocytes # (Manual) Eosinophils # (Manual) Basophils # (Manual) PT INR D-Dimer ABG pH POC ABG pCO2 POC ABG pO2 ABG pO2 ABG HCO3 ABG O2 Saturation ABG Base Excess ABG Hemoglobin ABG Oxyhemoglobin ABG Potassium ABG Glucose Oxyhemoglobin Carboxyhemoglobin Sodium Potassium Chloride Carbon Dioxide BUN Creatinine Glucose POC Glucose 147 H 114 H 134 H Calcium Ferritin Total Bilirubin Alkaline Phosphatase Lactate Dehydrogenase Total Creatine Kinase CK-MB (CK-2) Rel Index Troponin T C-Reactive Protein Total Protein Albumin Prealbumin LDL Cholesterol Direct Arterial Blood Glucose Arterial Blood Ionized Calcium Urine WBC (Auto) 03/06/20 03/06/20 03/06/20 04:34 05:53 06:08 WBC 25.4 H RBC Hgb 10.5 L Hct 32.7 L MCV MCH 27 L RDW 15.3 H Plt Count 634 H Lymph % (Auto) Lymph # (Auto) Lucas # (Auto) Seg Neutrophils % Seg Neuts % (Manual) 88.0 H Lymphocytes % (Manual) 2.0 L Monocytes % (Manual) 8.0 H Basophils % (Manual) Seg Neutrophils # Seg Neutrophils # Man 22.4 H Lymphocytes # (Manual) 0.5 L Monocytes # (Manual) 2.0 H Eosinophils # (Manual) Basophils # (Manual) PT INR D-Dimer ABG pH POC ABG pCO2 POC ABG pO2 ABG pO2 ABG HCO3 37.9 H ABG O2 Saturation ABG Base Excess 11.4 H ABG Hemoglobin 10.6 L ABG Oxyhemoglobin ABG Potassium ABG Glucose Oxyhemoglobin 94.7 L Carboxyhemoglobin Sodium Potassium Chloride Carbon Dioxide BUN Creatinine Glucose POC Glucose 135 H Calcium Ferritin Total Bilirubin Alkaline Phosphatase Lactate Dehydrogenase Total Creatine Kinase CK-MB (CK-2) Rel Index Troponin T C-Reactive Protein Total Protein Albumin Prealbumin LDL Cholesterol Direct Arterial Blood Glucose Arterial Blood Ionized Calcium Urine WBC (Auto) 03/06/20 03/06/20 03/06/20 06:08 12:19 19:10 WBC RBC Hgb Hct MCV MCH RDW Plt Count Lymph % (Auto) Lymph # (Auto) Lucas # (Auto) Seg Neutrophils % Seg Neuts % (Manual) Lymphocytes % (Manual) Monocytes % (Manual) Basophils % (Manual) Seg Neutrophils # Seg Neutrophils # Man Lymphocytes # (Manual) Monocytes # (Manual) Eosinophils # (Manual) Basophils # (Manual) PT INR D-Dimer ABG pH POC ABG pCO2 POC ABG pO2 ABG pO2 ABG HCO3 ABG O2 Saturation ABG Base Excess ABG Hemoglobin ABG Oxyhemoglobin ABG Potassium ABG Glucose Oxyhemoglobin Carboxyhemoglobin Sodium 150 H D Potassium Chloride Carbon Dioxide 39 H D BUN 23 H Creatinine < 0.2 L Glucose 144 H POC Glucose 169 H 152 H Calcium Ferritin Total Bilirubin Alkaline Phosphatase Lactate Dehydrogenase Total Creatine Kinase CK-MB (CK-2) Rel Index Troponin T C-Reactive Protein Total Protein Albumin 3.3 L Prealbumin LDL Cholesterol Direct Arterial Blood Glucose Arterial Blood Ionized Calcium Urine WBC (Auto) 03/06/20 03/07/20 03/07/20 23:58 04:25 04:25 WBC 22.1 H RBC Hgb 10.9 L Hct 32.9 L MCV MCH RDW 15.5 H Plt Count 739 H Lymph % (Auto) 7.8 L Lymph # (Auto) Lucas # (Auto) 1.3 H Seg Neutrophils % 85.5 H Seg Neuts % (Manual) Lymphocytes % (Manual) Monocytes % (Manual) Basophils % (Manual) Seg Neutrophils # 18.9 H Seg Neutrophils # Man Lymphocytes # (Manual) Monocytes # (Manual) Eosinophils # (Manual) Basophils # (Manual) PT INR D-Dimer ABG pH POC ABG pCO2 POC ABG pO2 ABG pO2 ABG HCO3 ABG O2 Saturation ABG Base Excess ABG Hemoglobin ABG Oxyhemoglobin ABG Potassium ABG Glucose Oxyhemoglobin Carboxyhemoglobin Sodium 146 H Potassium Chloride Carbon Dioxide 37 H BUN Creatinine < 0.2 L Glucose 118 H POC Glucose 111 H Calcium Ferritin Total Bilirubin Alkaline Phosphatase Lactate Dehydrogenase Total Creatine Kinase CK-MB (CK-2) Rel Index Troponin T C-Reactive Protein Total Protein Albumin 3.7 L Prealbumin LDL Cholesterol Direct Arterial Blood Glucose Arterial Blood Ionized Calcium Urine WBC (Auto) 03/07/20 03/07/20 03/07/20 05:20 17:45 23:32 WBC RBC Hgb Hct MCV MCH RDW Plt Count Lymph % (Auto) Lymph # (Auto) Lucas # (Auto) Seg Neutrophils % Seg Neuts % (Manual) Lymphocytes % (Manual) Monocytes % (Manual) Basophils % (Manual) Seg Neutrophils # Seg Neutrophils # Man Lymphocytes # (Manual) Monocytes # (Manual) Eosinophils # (Manual) Basophils # (Manual) PT INR D-Dimer ABG pH POC ABG pCO2 POC ABG pO2 ABG pO2 ABG HCO3 ABG O2 Saturation ABG Base Excess ABG Hemoglobin ABG Oxyhemoglobin ABG Potassium ABG Glucose Oxyhemoglobin Carboxyhemoglobin Sodium Potassium Chloride Carbon Dioxide BUN Creatinine Glucose POC Glucose 113 H 124 H 210 H Calcium Ferritin Total Bilirubin Alkaline Phosphatase Lactate Dehydrogenase Total Creatine Kinase CK-MB (CK-2) Rel Index Troponin T C-Reactive Protein Total Protein Albumin Prealbumin LDL Cholesterol Direct Arterial Blood Glucose Arterial Blood Ionized Calcium Urine WBC (Auto) 03/08/20 03/08/20 03/08/20 05:35 06:43 06:43 WBC 28.9 H RBC 3.53 L Hgb 9.7 L Hct 30.3 L MCV MCH RDW 15.6 H Plt Count 578 H Lymph % (Auto) Lymph # (Auto) Lucas # (Auto) Seg Neutrophils % Seg Neuts % (Manual) 93.0 H Lymphocytes % (Manual) 4.0 L Monocytes % (Manual) Basophils % (Manual) Seg Neutrophils # Seg Neutrophils # Man 26.9 H Lymphocytes # (Manual) Monocytes # (Manual) Eosinophils # (Manual) Basophils # (Manual) PT INR D-Dimer ABG pH POC ABG pCO2 POC ABG pO2 ABG pO2 ABG HCO3 ABG O2 Saturation ABG Base Excess ABG Hemoglobin ABG Oxyhemoglobin ABG Potassium ABG Glucose Oxyhemoglobin Carboxyhemoglobin Sodium 146 H Potassium Chloride Carbon Dioxide 35 H BUN 34 H Creatinine 0.3 L D Glucose 125 H POC Glucose 147 H Calcium Ferritin Total Bilirubin Alkaline Phosphatase Lactate Dehydrogenase Total Creatine Kinase CK-MB (CK-2) Rel Index Troponin T C-Reactive Protein Total Protein 5.9 L Albumin 3.2 L Prealbumin LDL Cholesterol Direct Arterial Blood Glucose Arterial Blood Ionized Calcium Urine WBC (Auto) 03/08/20 03/08/20 03/08/20 08:57 11:14 12:34 WBC RBC Hgb Hct MCV MCH RDW Plt Count Lymph % (Auto) Lymph # (Auto) Lucas # (Auto) Seg Neutrophils % Seg Neuts % (Manual) Lymphocytes % (Manual) Monocytes % (Manual) Basophils % (Manual) Seg Neutrophils # Seg Neutrophils # Man Lymphocytes # (Manual) Monocytes # (Manual) Eosinophils # (Manual) Basophils # (Manual) PT INR D-Dimer ABG pH POC ABG pCO2 63.1 H POC ABG pO2 ABG pO2 ABG HCO3 ABG O2 Saturation ABG Base Excess ABG Hemoglobin 10.9 L ABG Oxyhemoglobin ABG Potassium ABG Glucose 176 H Oxyhemoglobin Carboxyhemoglobin Sodium Potassium Chloride Carbon Dioxide BUN Creatinine Glucose POC Glucose 171 H Calcium Ferritin Total Bilirubin Alkaline Phosphatase Lactate Dehydrogenase Total Creatine Kinase CK-MB (CK-2) Rel Index Troponin T C-Reactive Protein Total Protein Albumin Prealbumin LDL Cholesterol Direct Arterial Blood Glucose 176 H Arterial Blood Ionized Calcium 4.5 L Urine WBC (Auto) 10.0 H 03/08/20 03/08/20 03/09/20 18:02 23:43 05:49 WBC RBC Hgb Hct MCV MCH RDW Plt Count Lymph % (Auto) Lymph # (Auto) Lucas # (Auto) Seg Neutrophils % Seg Neuts % (Manual) Lymphocytes % (Manual) Monocytes % (Manual) Basophils % (Manual) Seg Neutrophils # Seg Neutrophils # Man Lymphocytes # (Manual) Monocytes # (Manual) Eosinophils # (Manual) Basophils # (Manual) PT INR D-Dimer ABG pH POC ABG pCO2 POC ABG pO2 ABG pO2 ABG HCO3 ABG O2 Saturation ABG Base Excess ABG Hemoglobin ABG Oxyhemoglobin ABG Potassium ABG Glucose Oxyhemoglobin Carboxyhemoglobin Sodium Potassium Chloride Carbon Dioxide BUN Creatinine Glucose POC Glucose 157 H 134 H 163 H Calcium Ferritin Total Bilirubin Alkaline Phosphatase Lactate Dehydrogenase Total Creatine Kinase CK-MB (CK-2) Rel Index Troponin T C-Reactive Protein Total Protein Albumin Prealbumin LDL Cholesterol Direct Arterial Blood Glucose Arterial Blood Ionized Calcium Urine WBC (Auto) 03/09/20 03/09/20 03/09/20 08:35 08:35 12:11 WBC 23.4 H RBC 3.36 L Hgb 9.3 L Hct 28.8 L MCV MCH RDW 15.9 H Plt Count 521 H Lymph % (Auto) Lymph # (Auto) Lucas # (Auto) Seg Neutrophils % Seg Neuts % (Manual) 87.0 H Lymphocytes % (Manual) 4.0 L Monocytes % (Manual) 9.0 H Basophils % (Manual) Seg Neutrophils # Seg Neutrophils # Man 20.4 H Lymphocytes # (Manual) 0.9 L Monocytes # (Manual) 2.1 H Eosinophils # (Manual) Basophils # (Manual) PT INR D-Dimer ABG pH POC ABG pCO2 POC ABG pO2 ABG pO2 ABG HCO3 ABG O2 Saturation ABG Base Excess ABG Hemoglobin ABG Oxyhemoglobin ABG Potassium ABG Glucose Oxyhemoglobin Carboxyhemoglobin Sodium 147 H Potassium Chloride Carbon Dioxide 37 H BUN 63 H Creatinine Glucose 154 H POC Glucose 128 H Calcium Ferritin Total Bilirubin Alkaline Phosphatase Lactate Dehydrogenase Total Creatine Kinase CK-MB (CK-2) Rel Index Troponin T C-Reactive Protein Total Protein Albumin Prealbumin LDL Cholesterol Direct Arterial Blood Glucose Arterial Blood Ionized Calcium Urine WBC (Auto) 03/09/20 03/10/20 03/10/20 17:51 00:25 05:41 WBC RBC Hgb Hct MCV MCH RDW Plt Count Lymph % (Auto) Lymph # (Auto) Lucas # (Auto) Seg Neutrophils % Seg Neuts % (Manual) Lymphocytes % (Manual) Monocytes % (Manual) Basophils % (Manual) Seg Neutrophils # Seg Neutrophils # Man Lymphocytes # (Manual) Monocytes # (Manual) Eosinophils # (Manual) Basophils # (Manual) PT INR D-Dimer ABG pH POC ABG pCO2 POC ABG pO2 ABG pO2 ABG HCO3 ABG O2 Saturation ABG Base Excess ABG Hemoglobin ABG Oxyhemoglobin ABG Potassium ABG Glucose Oxyhemoglobin Carboxyhemoglobin Sodium Potassium Chloride Carbon Dioxide BUN Creatinine Glucose POC Glucose 127 H 128 H 153 H Calcium Ferritin Total Bilirubin Alkaline Phosphatase Lactate Dehydrogenase Total Creatine Kinase CK-MB (CK-2) Rel Index Troponin T C-Reactive Protein Total Protein Albumin Prealbumin LDL Cholesterol Direct Arterial Blood Glucose Arterial Blood Ionized Calcium Urine WBC (Auto) 03/10/20 03/10/20 03/10/20 06:14 06:14 12:02 WBC 18.3 H RBC 3.45 L Hgb 9.5 L Hct 29.5 L MCV MCH RDW 16.1 H Plt Count 494 H Lymph % (Auto) Lymph # (Auto) Lucas # (Auto) Seg Neutrophils % Seg Neuts % (Manual) 95.0 H Lymphocytes % (Manual) 1.0 L Monocytes % (Manual) Basophils % (Manual) Seg Neutrophils # Seg Neutrophils # Man 17.4 H Lymphocytes # (Manual) 0.2 L Monocytes # (Manual) Eosinophils # (Manual) Basophils # (Manual) PT INR D-Dimer ABG pH POC ABG pCO2 POC ABG pO2 ABG pO2 ABG HCO3 ABG O2 Saturation ABG Base Excess ABG Hemoglobin ABG Oxyhemoglobin ABG Potassium ABG Glucose Oxyhemoglobin Carboxyhemoglobin Sodium 149 H Potassium Chloride Carbon Dioxide 35 H BUN 34 H Creatinine 0.2 L D Glucose 177 H POC Glucose 151 H Calcium Ferritin Total Bilirubin Alkaline Phosphatase Lactate Dehydrogenase Total Creatine Kinase CK-MB (CK-2) Rel Index Troponin T C-Reactive Protein Total Protein Albumin Prealbumin LDL Cholesterol Direct Arterial Blood Glucose Arterial Blood Ionized Calcium Urine WBC (Auto) 03/10/20 03/10/20 03/11/20 17:41 23:53 05:02 WBC RBC Hgb Hct MCV MCH RDW Plt Count Lymph % (Auto) Lymph # (Auto) Lucas # (Auto) Seg Neutrophils % Seg Neuts % (Manual) Lymphocytes % (Manual) Monocytes % (Manual) Basophils % (Manual) Seg Neutrophils # Seg Neutrophils # Man Lymphocytes # (Manual) Monocytes # (Manual) Eosinophils # (Manual) Basophils # (Manual) PT INR D-Dimer ABG pH POC ABG pCO2 POC ABG pO2 ABG pO2 ABG HCO3 ABG O2 Saturation ABG Base Excess ABG Hemoglobin ABG Oxyhemoglobin ABG Potassium ABG Glucose Oxyhemoglobin Carboxyhemoglobin Sodium Potassium Chloride Carbon Dioxide BUN Creatinine Glucose POC Glucose 168 H 142 H 146 H Calcium Ferritin Total Bilirubin Alkaline Phosphatase Lactate Dehydrogenase Total Creatine Kinase CK-MB (CK-2) Rel Index Troponin T C-Reactive Protein Total Protein Albumin Prealbumin LDL Cholesterol Direct Arterial Blood Glucose Arterial Blood Ionized Calcium Urine WBC (Auto) 03/11/20 03/11/20 03/11/20 11:30 14:01 14:01 WBC 19.7 H RBC 3.04 L Hgb 8.7 L Hct 25.8 L MCV MCH RDW 15.6 H Plt Count Lymph % (Auto) Lymph # (Auto) Lucas # (Auto) Seg Neutrophils % Seg Neuts % (Manual) Lymphocytes % (Manual) Monocytes % (Manual) Basophils % (Manual) Seg Neutrophils # Seg Neutrophils # Man Lymphocytes # (Manual) Monocytes # (Manual) Eosinophils # (Manual) Basophils # (Manual) PT INR D-Dimer ABG pH POC ABG pCO2 POC ABG pO2 ABG pO2 ABG HCO3 ABG O2 Saturation ABG Base Excess ABG Hemoglobin ABG Oxyhemoglobin ABG Potassium ABG Glucose Oxyhemoglobin Carboxyhemoglobin Sodium 151 H Potassium Chloride Carbon Dioxide 37 H BUN Creatinine < 0.2 L Glucose 171 H POC Glucose 248 H Calcium Ferritin Total Bilirubin Alkaline Phosphatase Lactate Dehydrogenase Total Creatine Kinase CK-MB (CK-2) Rel Index Troponin T C-Reactive Protein Total Protein Albumin Prealbumin LDL Cholesterol Direct Arterial Blood Glucose Arterial Blood Ionized Calcium Urine WBC (Auto) 03/11/20 03/11/20 03/12/20 17:09 23:52 04:39 WBC 19.9 H RBC 3.16 L Hgb 8.9 L Hct 27.5 L MCV MCH RDW 15.7 H Plt Count Lymph % (Auto) 6.8 L Lymph # (Auto) Lucas # (Auto) 1.2 H Seg Neutrophils % 86.0 H Seg Neuts % (Manual) Lymphocytes % (Manual) Monocytes % (Manual) Basophils % (Manual) Seg Neutrophils # 17.1 H Seg Neutrophils # Man Lymphocytes # (Manual) Monocytes # (Manual) Eosinophils # (Manual) Basophils # (Manual) PT INR D-Dimer ABG pH POC ABG pCO2 POC ABG pO2 ABG pO2 ABG HCO3 ABG O2 Saturation ABG Base Excess ABG Hemoglobin ABG Oxyhemoglobin ABG Potassium ABG Glucose Oxyhemoglobin Carboxyhemoglobin Sodium Potassium Chloride Carbon Dioxide BUN Creatinine Glucose POC Glucose 124 H 131 H Calcium Ferritin Total Bilirubin Alkaline Phosphatase Lactate Dehydrogenase Total Creatine Kinase CK-MB (CK-2) Rel Index Troponin T C-Reactive Protein Total Protein Albumin Prealbumin LDL Cholesterol Direct Arterial Blood Glucose Arterial Blood Ionized Calcium Urine WBC (Auto) 03/12/20 03/12/20 03/12/20 04:39 05:28 11:34 WBC RBC Hgb Hct MCV MCH RDW Plt Count Lymph % (Auto) Lymph # (Auto) Lucas # (Auto) Seg Neutrophils % Seg Neuts % (Manual) Lymphocytes % (Manual) Monocytes % (Manual) Basophils % (Manual) Seg Neutrophils # Seg Neutrophils # Man Lymphocytes # (Manual) Monocytes # (Manual) Eosinophils # (Manual) Basophils # (Manual) PT INR D-Dimer ABG pH POC ABG pCO2 POC ABG pO2 ABG pO2 ABG HCO3 ABG O2 Saturation ABG Base Excess ABG Hemoglobin ABG Oxyhemoglobin ABG Potassium ABG Glucose Oxyhemoglobin Carboxyhemoglobin Sodium 147 H Potassium Chloride Carbon Dioxide 40 H BUN Creatinine < 0.2 L Glucose 175 H POC Glucose 167 H 144 H Calcium Ferritin Total Bilirubin Alkaline Phosphatase Lactate Dehydrogenase Total Creatine Kinase CK-MB (CK-2) Rel Index Troponin T C-Reactive Protein Total Protein Albumin Prealbumin LDL Cholesterol Direct Arterial Blood Glucose Arterial Blood Ionized Calcium Urine WBC (Auto) 03/12/20 03/12/20 03/13/20 17:32 23:57 05:57 WBC RBC Hgb Hct MCV MCH RDW Plt Count Lymph % (Auto) Lymph # (Auto) Lucas # (Auto) Seg Neutrophils % Seg Neuts % (Manual) Lymphocytes % (Manual) Monocytes % (Manual) Basophils % (Manual) Seg Neutrophils # Seg Neutrophils # Man Lymphocytes # (Manual) Monocytes # (Manual) Eosinophils # (Manual) Basophils # (Manual) PT INR D-Dimer ABG pH POC ABG pCO2 POC ABG pO2 ABG pO2 ABG HCO3 ABG O2 Saturation ABG Base Excess ABG Hemoglobin ABG Oxyhemoglobin ABG Potassium ABG Glucose Oxyhemoglobin Carboxyhemoglobin Sodium Potassium Chloride Carbon Dioxide BUN Creatinine Glucose POC Glucose 141 H 137 H 161 H Calcium Ferritin Total Bilirubin Alkaline Phosphatase Lactate Dehydrogenase Total Creatine Kinase CK-MB (CK-2) Rel Index Troponin T C-Reactive Protein Total Protein Albumin Prealbumin LDL Cholesterol Direct Arterial Blood Glucose Arterial Blood Ionized Calcium Urine WBC (Auto) 03/13/20 03/13/20 03/13/20 12:28 14:14 18:39 WBC RBC Hgb Hct MCV MCH RDW Plt Count Lymph % (Auto) Lymph # (Auto) Lucas # (Auto) Seg Neutrophils % Seg Neuts % (Manual) Lymphocytes % (Manual) Monocytes % (Manual) Basophils % (Manual) Seg Neutrophils # Seg Neutrophils # Man Lymphocytes # (Manual) Monocytes # (Manual) Eosinophils # (Manual) Basophils # (Manual) PT INR D-Dimer ABG pH POC ABG pCO2 POC ABG pO2 ABG pO2 ABG HCO3 ABG O2 Saturation ABG Base Excess ABG Hemoglobin ABG Oxyhemoglobin ABG Potassium ABG Glucose Oxyhemoglobin Carboxyhemoglobin Sodium Potassium Chloride Carbon Dioxide 39 H BUN Creatinine < 0.2 L Glucose 129 H POC Glucose 130 H 125 H Calcium Ferritin Total Bilirubin Alkaline Phosphatase Lactate Dehydrogenase Total Creatine Kinase CK-MB (CK-2) Rel Index Troponin T C-Reactive Protein Total Protein Albumin Prealbumin LDL Cholesterol Direct Arterial Blood Glucose Arterial Blood Ionized Calcium Urine WBC (Auto) 03/13/20 03/14/20 03/14/20 23:33 05:24 08:07 WBC 16.8 H RBC 2.81 L Hgb 7.9 L Hct 23.9 L MCV MCH RDW 15.9 H Plt Count Lymph % (Auto) Lymph # (Auto) Lucas # (Auto) Seg Neutrophils % Seg Neuts % (Manual) 84.0 H Lymphocytes % (Manual) 10.0 L Monocytes % (Manual) Basophils % (Manual) Seg Neutrophils # Seg Neutrophils # Man 14.1 H Lymphocytes # (Manual) Monocytes # (Manual) Eosinophils # (Manual) Basophils # (Manual) PT INR D-Dimer ABG pH POC ABG pCO2 POC ABG pO2 ABG pO2 ABG HCO3 ABG O2 Saturation ABG Base Excess ABG Hemoglobin ABG Oxyhemoglobin ABG Potassium ABG Glucose Oxyhemoglobin Carboxyhemoglobin Sodium Potassium Chloride Carbon Dioxide BUN Creatinine Glucose POC Glucose 146 H 125 H Calcium Ferritin Total Bilirubin Alkaline Phosphatase Lactate Dehydrogenase Total Creatine Kinase CK-MB (CK-2) Rel Index Troponin T C-Reactive Protein Total Protein Albumin Prealbumin LDL Cholesterol Direct Arterial Blood Glucose Arterial Blood Ionized Calcium Urine WBC (Auto) 03/14/20 03/14/20 03/14/20 08:07 12:21 18:26 WBC RBC Hgb Hct MCV MCH RDW Plt Count Lymph % (Auto) Lymph # (Auto) Lucas # (Auto) Seg Neutrophils % Seg Neuts % (Manual) Lymphocytes % (Manual) Monocytes % (Manual) Basophils % (Manual) Seg Neutrophils # Seg Neutrophils # Man Lymphocytes # (Manual) Monocytes # (Manual) Eosinophils # (Manual) Basophils # (Manual) PT INR D-Dimer ABG pH POC ABG pCO2 POC ABG pO2 ABG pO2 ABG HCO3 ABG O2 Saturation ABG Base Excess ABG Hemoglobin ABG Oxyhemoglobin ABG Potassium ABG Glucose Oxyhemoglobin Carboxyhemoglobin Sodium Potassium Chloride 97.0 L Carbon Dioxide 37 H BUN Creatinine < 0.2 L Glucose 129 H POC Glucose 109 H 142 H Calcium 8.3 L Ferritin Total Bilirubin Alkaline Phosphatase Lactate Dehydrogenase Total Creatine Kinase CK-MB (CK-2) Rel Index Troponin T C-Reactive Protein Total Protein Albumin Prealbumin LDL Cholesterol Direct Arterial Blood Glucose Arterial Blood Ionized Calcium Urine WBC (Auto) 03/14/20 03/15/20 03/15/20 23:57 05:46 08:06 WBC 19.7 H RBC 3.29 L Hgb 9.1 L Hct 28.0 L MCV MCH RDW 15.9 H Plt Count Lymph % (Auto) Lymph # (Auto) Lucas # (Auto) Seg Neutrophils % Seg Neuts % (Manual) Lymphocytes % (Manual) Monocytes % (Manual) Basophils % (Manual) Seg Neutrophils # Seg Neutrophils # Man Lymphocytes # (Manual) Monocytes # (Manual) Eosinophils # (Manual) Basophils # (Manual) PT INR D-Dimer ABG pH POC ABG pCO2 POC ABG pO2 ABG pO2 ABG HCO3 ABG O2 Saturation ABG Base Excess ABG Hemoglobin ABG Oxyhemoglobin ABG Potassium ABG Glucose Oxyhemoglobin Carboxyhemoglobin Sodium Potassium Chloride Carbon Dioxide BUN Creatinine Glucose POC Glucose 157 H 118 H Calcium Ferritin Total Bilirubin Alkaline Phosphatase Lactate Dehydrogenase Total Creatine Kinase CK-MB (CK-2) Rel Index Troponin T C-Reactive Protein Total Protein Albumin Prealbumin LDL Cholesterol Direct Arterial Blood Glucose Arterial Blood Ionized Calcium Urine WBC (Auto) 03/15/20 03/15/20 03/15/20 08:06 12:44 18:09 WBC RBC Hgb Hct MCV MCH RDW Plt Count Lymph % (Auto) Lymph # (Auto) Lucas # (Auto) Seg Neutrophils % Seg Neuts % (Manual) Lymphocytes % (Manual) Monocytes % (Manual) Basophils % (Manual) Seg Neutrophils # Seg Neutrophils # Man Lymphocytes # (Manual) Monocytes # (Manual) Eosinophils # (Manual) Basophils # (Manual) PT INR D-Dimer ABG pH POC ABG pCO2 POC ABG pO2 ABG pO2 ABG HCO3 ABG O2 Saturation ABG Base Excess ABG Hemoglobin ABG Oxyhemoglobin ABG Potassium ABG Glucose Oxyhemoglobin Carboxyhemoglobin Sodium 136 L Potassium Chloride 93.6 L Carbon Dioxide 37 H BUN Creatinine < 0.2 L Glucose 132 H POC Glucose 151 H 164 H Calcium Ferritin Total Bilirubin Alkaline Phosphatase Lactate Dehydrogenase Total Creatine Kinase CK-MB (CK-2) Rel Index Troponin T C-Reactive Protein Total Protein Albumin Prealbumin LDL Cholesterol Direct Arterial Blood Glucose Arterial Blood Ionized Calcium Urine WBC (Auto) 03/15/20 03/16/20 03/16/20 23:26 05:39 11:58 WBC RBC Hgb Hct MCV MCH RDW Plt Count Lymph % (Auto) Lymph # (Auto) Lucas # (Auto) Seg Neutrophils % Seg Neuts % (Manual) Lymphocytes % (Manual) Monocytes % (Manual) Basophils % (Manual) Seg Neutrophils # Seg Neutrophils # Man Lymphocytes # (Manual) Monocytes # (Manual) Eosinophils # (Manual) Basophils # (Manual) PT INR D-Dimer ABG pH POC ABG pCO2 POC ABG pO2 ABG pO2 ABG HCO3 ABG O2 Saturation ABG Base Excess ABG Hemoglobin ABG Oxyhemoglobin ABG Potassium ABG Glucose Oxyhemoglobin Carboxyhemoglobin Sodium Potassium Chloride Carbon Dioxide BUN Creatinine Glucose POC Glucose 136 H 116 H 109 H Calcium Ferritin Total Bilirubin Alkaline Phosphatase Lactate Dehydrogenase Total Creatine Kinase CK-MB (CK-2) Rel Index Troponin T C-Reactive Protein Total Protein Albumin Prealbumin LDL Cholesterol Direct Arterial Blood Glucose Arterial Blood Ionized Calcium Urine WBC (Auto) 03/16/20 03/17/20 03/17/20 23:56 04:40 04:40 WBC 18.0 H RBC 3.33 L Hgb 9.5 L Hct 28.8 L MCV MCH RDW 16.4 H Plt Count 499 H Lymph % (Auto) Lymph # (Auto) Lucas # (Auto) Seg Neutrophils % Seg Neuts % (Manual) 82.0 H Lymphocytes % (Manual) 8.0 L Monocytes % (Manual) Basophils % (Manual) Seg Neutrophils # Seg Neutrophils # Man 14.8 H Lymphocytes # (Manual) Monocytes # (Manual) 1.3 H Eosinophils # (Manual) Basophils # (Manual) 0.2 H PT INR D-Dimer ABG pH POC ABG pCO2 POC ABG pO2 ABG pO2 ABG HCO3 ABG O2 Saturation ABG Base Excess ABG Hemoglobin ABG Oxyhemoglobin ABG Potassium ABG Glucose Oxyhemoglobin Carboxyhemoglobin Sodium Potassium Chloride 97.7 L Carbon Dioxide 32 H BUN Creatinine < 0.2 L Glucose 114 H POC Glucose 131 H Calcium Ferritin Total Bilirubin Alkaline Phosphatase Lactate Dehydrogenase Total Creatine Kinase CK-MB (CK-2) Rel Index Troponin T C-Reactive Protein Total Protein Albumin Prealbumin LDL Cholesterol Direct Arterial Blood Glucose Arterial Blood Ionized Calcium Urine WBC (Auto) 11/03/18/20 03/18/20 00:21 05:21 11:55 WBC RBC Hgb Hct MCV MCH RDW Plt Count Lymph % (Auto) Lymph # (Auto) Lucas # (Auto) Seg Neutrophils % Seg Neuts % (Manual) Lymphocytes % (Manual) Monocytes % (Manual) Basophils % (Manual) Seg Neutrophils # Seg Neutrophils # Man Lymphocytes # (Manual) Monocytes # (Manual) Eosinophils # (Manual) Basophils # (Manual) PT INR D-Dimer ABG pH POC ABG pCO2 POC ABG pO2 ABG pO2 ABG HCO3 ABG O2 Saturation ABG Base Excess ABG Hemoglobin ABG Oxyhemoglobin ABG Potassium ABG Glucose Oxyhemoglobin Carboxyhemoglobin Sodium Potassium Chloride Carbon Dioxide BUN Creatinine Glucose POC Glucose 124 H 138 H 119 H Calcium Ferritin Total Bilirubin Alkaline Phosphatase Lactate Dehydrogenase Total Creatine Kinase CK-MB (CK-2) Rel Index Troponin T C-Reactive Protein Total Protein Albumin Prealbumin LDL Cholesterol Direct Arterial Blood Glucose Arterial Blood Ionized Calcium Urine WBC (Auto) 03/18/20 03/18/20 03/19/20 17:03 23:58 05:24 WBC RBC Hgb Hct MCV MCH RDW Plt Count Lymph % (Auto) Lymph # (Auto) Lucas # (Auto) Seg Neutrophils % Seg Neuts % (Manual) Lymphocytes % (Manual) Monocytes % (Manual) Basophils % (Manual) Seg Neutrophils # Seg Neutrophils # Man Lymphocytes # (Manual) Monocytes # (Manual) Eosinophils # (Manual) Basophils # (Manual) PT INR D-Dimer ABG pH POC ABG pCO2 POC ABG pO2 ABG pO2 ABG HCO3 ABG O2 Saturation ABG Base Excess ABG Hemoglobin ABG Oxyhemoglobin ABG Potassium ABG Glucose Oxyhemoglobin Carboxyhemoglobin Sodium Potassium Chloride Carbon Dioxide BUN Creatinine Glucose POC Glucose 128 H 128 H 115 H Calcium Ferritin Total Bilirubin Alkaline Phosphatase Lactate Dehydrogenase Total Creatine Kinase CK-MB (CK-2) Rel Index Troponin T C-Reactive Protein Total Protein Albumin Prealbumin LDL Cholesterol Direct Arterial Blood Glucose Arterial Blood Ionized Calcium Urine WBC (Auto) 03/19/20 03/19/20 03/19/20 08:05 08:05 11:56 WBC 16.8 H RBC 3.36 L Hgb 9.4 L Hct 28.8 L MCV MCH RDW 17.4 H Plt Count 567 H Lymph % (Auto) 7.8 L Lymph # (Auto) Lucas # (Auto) 1.2 H Seg Neutrophils % 83.5 H Seg Neuts % (Manual) Lymphocytes % (Manual) Monocytes % (Manual) Basophils % (Manual) Seg Neutrophils # 14.1 H Seg Neutrophils # Man Lymphocytes # (Manual) Monocytes # (Manual) Eosinophils # (Manual) Basophils # (Manual) PT INR D-Dimer ABG pH POC ABG pCO2 POC ABG pO2 ABG pO2 ABG HCO3 ABG O2 Saturation ABG Base Excess ABG Hemoglobin ABG Oxyhemoglobin ABG Potassium ABG Glucose Oxyhemoglobin Carboxyhemoglobin Sodium Potassium Chloride Carbon Dioxide 36 H BUN Creatinine < 0.2 L Glucose 135 H POC Glucose 128 H Calcium Ferritin Total Bilirubin Alkaline Phosphatase Lactate Dehydrogenase Total Creatine Kinase CK-MB (CK-2) Rel Index Troponin T C-Reactive Protein Total Protein Albumin Prealbumin LDL Cholesterol Direct Arterial Blood Glucose Arterial Blood Ionized Calcium Urine WBC (Auto) 03/19/20 03/20/20 03/20/20 23:59 05:12 16:52 WBC RBC Hgb Hct MCV MCH RDW Plt Count Lymph % (Auto) Lymph # (Auto) Lucas # (Auto) Seg Neutrophils % Seg Neuts % (Manual) Lymphocytes % (Manual) Monocytes % (Manual) Basophils % (Manual) Seg Neutrophils # Seg Neutrophils # Man Lymphocytes # (Manual) Monocytes # (Manual) Eosinophils # (Manual) Basophils # (Manual) PT INR D-Dimer ABG pH POC ABG pCO2 POC ABG pO2 ABG pO2 ABG HCO3 ABG O2 Saturation ABG Base Excess ABG Hemoglobin ABG Oxyhemoglobin ABG Potassium ABG Glucose Oxyhemoglobin Carboxyhemoglobin Sodium Potassium Chloride Carbon Dioxide BUN Creatinine Glucose POC Glucose 120 H 131 H 124 H Calcium Ferritin Total Bilirubin Alkaline Phosphatase Lactate Dehydrogenase Total Creatine Kinase CK-MB (CK-2) Rel Index Troponin T C-Reactive Protein Total Protein Albumin Prealbumin LDL Cholesterol Direct Arterial Blood Glucose Arterial Blood Ionized Calcium Urine WBC (Auto) 03/20/20 03/21/20 03/21/20 23:35 04:50 07:35 WBC 15.2 H RBC 3.39 L Hgb 9.4 L Hct 29.4 L MCV MCH RDW 17.6 H Plt Count 518 H Lymph % (Auto) Lymph # (Auto) Lucas # (Auto) Seg Neutrophils % Seg Neuts % (Manual) 83.0 H Lymphocytes % (Manual) 10.0 L Monocytes % (Manual) Basophils % (Manual) 2.0 H Seg Neutrophils # Seg Neutrophils # Man 12.6 H Lymphocytes # (Manual) Monocytes # (Manual) Eosinophils # (Manual) Basophils # (Manual) 0.3 H PT INR D-Dimer ABG pH POC ABG pCO2 POC ABG pO2 ABG pO2 ABG HCO3 ABG O2 Saturation ABG Base Excess ABG Hemoglobin ABG Oxyhemoglobin ABG Potassium ABG Glucose Oxyhemoglobin Carboxyhemoglobin Sodium Potassium Chloride Carbon Dioxide BUN Creatinine Glucose POC Glucose 125 H 127 H Calcium Ferritin Total Bilirubin Alkaline Phosphatase Lactate Dehydrogenase Total Creatine Kinase CK-MB (CK-2) Rel Index Troponin T C-Reactive Protein Total Protein Albumin Prealbumin LDL Cholesterol Direct Arterial Blood Glucose Arterial Blood Ionized Calcium Urine WBC (Auto) 03/21/20 03/21/20 03/21/20 07:35 11:45 17:22 WBC RBC Hgb Hct MCV MCH RDW Plt Count Lymph % (Auto) Lymph # (Auto) Lucas # (Auto) Seg Neutrophils % Seg Neuts % (Manual) Lymphocytes % (Manual) Monocytes % (Manual) Basophils % (Manual) Seg Neutrophils # Seg Neutrophils # Man Lymphocytes # (Manual) Monocytes # (Manual) Eosinophils # (Manual) Basophils # (Manual) PT INR D-Dimer ABG pH POC ABG pCO2 POC ABG pO2 ABG pO2 ABG HCO3 ABG O2 Saturation ABG Base Excess ABG Hemoglobin ABG Oxyhemoglobin ABG Potassium ABG Glucose Oxyhemoglobin Carboxyhemoglobin Sodium 136 L Potassium Chloride 97.7 L Carbon Dioxide 32 H BUN Creatinine < 0.2 L Glucose 103 H POC Glucose 126 H 120 H Calcium Ferritin Total Bilirubin Alkaline Phosphatase Lactate Dehydrogenase Total Creatine Kinase CK-MB (CK-2) Rel Index Troponin T C-Reactive Protein Total Protein Albumin Prealbumin LDL Cholesterol Direct Arterial Blood Glucose Arterial Blood Ionized Calcium Urine WBC (Auto) 03/22/20 03/22/20 03/22/20 05:09 06:34 06:34 WBC 17.5 H RBC 3.52 L Hgb 10.0 L Hct 30.7 L MCV MCH RDW 17.5 H Plt Count 499 H Lymph % (Auto) Lymph # (Auto) Lucas # (Auto) Seg Neutrophils % Seg Neuts % (Manual) 80.0 H Lymphocytes % (Manual) 10.0 L Monocytes % (Manual) Basophils % (Manual) Seg Neutrophils # Seg Neutrophils # Man 14.0 H Lymphocytes # (Manual) Monocytes # (Manual) Eosinophils # (Manual) Basophils # (Manual) PT INR D-Dimer ABG pH POC ABG pCO2 POC ABG pO2 ABG pO2 ABG HCO3 ABG O2 Saturation ABG Base Excess ABG Hemoglobin ABG Oxyhemoglobin ABG Potassium ABG Glucose Oxyhemoglobin Carboxyhemoglobin Sodium Potassium Chloride 96.6 L Carbon Dioxide 38 H BUN Creatinine < 0.2 L Glucose 139 H POC Glucose 125 H Calcium Ferritin Total Bilirubin Alkaline Phosphatase Lactate Dehydrogenase Total Creatine Kinase CK-MB (CK-2) Rel Index Troponin T C-Reactive Protein Total Protein Albumin Prealbumin LDL Cholesterol Direct Arterial Blood Glucose Arterial Blood Ionized Calcium Urine WBC (Auto) 03/22/20 03/22/20 03/22/20 11:45 18:00 23:32 WBC RBC Hgb Hct MCV MCH RDW Plt Count Lymph % (Auto) Lymph # (Auto) Lucas # (Auto) Seg Neutrophils % Seg Neuts % (Manual) Lymphocytes % (Manual) Monocytes % (Manual) Basophils % (Manual) Seg Neutrophils # Seg Neutrophils # Man Lymphocytes # (Manual) Monocytes # (Manual) Eosinophils # (Manual) Basophils # (Manual) PT INR D-Dimer ABG pH POC ABG pCO2 POC ABG pO2 ABG pO2 ABG HCO3 ABG O2 Saturation ABG Base Excess ABG Hemoglobin ABG Oxyhemoglobin ABG Potassium ABG Glucose Oxyhemoglobin Carboxyhemoglobin Sodium Potassium Chloride Carbon Dioxide BUN Creatinine Glucose POC Glucose 135 H 133 H Calcium Ferritin Total Bilirubin Alkaline Phosphatase Lactate Dehydrogenase Total Creatine Kinase CK-MB (CK-2) Rel Index Troponin T 0.113 H* C-Reactive Protein Total Protein Albumin Prealbumin LDL Cholesterol Direct Arterial Blood Glucose Arterial Blood Ionized Calcium Urine WBC (Auto) 03/23/20 03/23/20 03/23/20 01:47 06:21 07:57 WBC RBC Hgb Hct MCV MCH RDW Plt Count Lymph % (Auto) Lymph # (Auto) Lucas # (Auto) Seg Neutrophils % Seg Neuts % (Manual) Lymphocytes % (Manual) Monocytes % (Manual) Basophils % (Manual) Seg Neutrophils # Seg Neutrophils # Man Lymphocytes # (Manual) Monocytes # (Manual) Eosinophils # (Manual) Basophils # (Manual) PT INR D-Dimer ABG pH POC ABG pCO2 POC ABG pO2 ABG pO2 ABG HCO3 ABG O2 Saturation ABG Base Excess ABG Hemoglobin ABG Oxyhemoglobin ABG Potassium ABG Glucose Oxyhemoglobin Carboxyhemoglobin Sodium Potassium Chloride Carbon Dioxide BUN Creatinine Glucose POC Glucose 130 H Calcium Ferritin Total Bilirubin Alkaline Phosphatase Lactate Dehydrogenase Total Creatine Kinase CK-MB (CK-2) Rel Index Troponin T 0.143 H* D 0.105 H* D C-Reactive Protein Total Protein Albumin Prealbumin LDL Cholesterol Direct Arterial Blood Glucose Arterial Blood Ionized Calcium Urine WBC (Auto) 03/23/20 03/24/20 03/24/20 12:02 05:33 07:15 WBC 18.0 H RBC Hgb 11.0 L Hct 34.0 L MCV MCH RDW 17.4 H Plt Count 520 H Lymph % (Auto) Lymph # (Auto) Lucas # (Auto) Seg Neutrophils % Seg Neuts % (Manual) 88.0 H Lymphocytes % (Manual) 7.0 L Monocytes % (Manual) Basophils % (Manual) Seg Neutrophils # Seg Neutrophils # Man 15.8 H Lymphocytes # (Manual) Monocytes # (Manual) Eosinophils # (Manual) Basophils # (Manual) PT INR D-Dimer ABG pH POC ABG pCO2 POC ABG pO2 ABG pO2 ABG HCO3 ABG O2 Saturation ABG Base Excess ABG Hemoglobin ABG Oxyhemoglobin ABG Potassium ABG Glucose Oxyhemoglobin Carboxyhemoglobin Sodium Potassium Chloride Carbon Dioxide BUN Creatinine Glucose POC Glucose 137 H 112 H Calcium Ferritin Total Bilirubin Alkaline Phosphatase Lactate Dehydrogenase Total Creatine Kinase CK-MB (CK-2) Rel Index Troponin T C-Reactive Protein Total Protein Albumin Prealbumin LDL Cholesterol Direct Arterial Blood Glucose Arterial Blood Ionized Calcium Urine WBC (Auto) 03/24/20 03/24/20 03/24/20 07:15 11:22 23:30 WBC RBC Hgb Hct MCV MCH RDW Plt Count Lymph % (Auto) Lymph # (Auto) Lucas # (Auto) Seg Neutrophils % Seg Neuts % (Manual) Lymphocytes % (Manual) Monocytes % (Manual) Basophils % (Manual) Seg Neutrophils # Seg Neutrophils # Man Lymphocytes # (Manual) Monocytes # (Manual) Eosinophils # (Manual) Basophils # (Manual) PT INR D-Dimer ABG pH POC ABG pCO2 POC ABG pO2 ABG pO2 ABG HCO3 ABG O2 Saturation ABG Base Excess ABG Hemoglobin ABG Oxyhemoglobin ABG Potassium ABG Glucose Oxyhemoglobin Carboxyhemoglobin Sodium Potassium Chloride 96.6 L Carbon Dioxide 38 H BUN Creatinine < 0.2 L Glucose 141 H POC Glucose 130 H 120 H Calcium Ferritin Total Bilirubin Alkaline Phosphatase Lactate Dehydrogenase Total Creatine Kinase CK-MB (CK-2) Rel Index Troponin T C-Reactive Protein Total Protein Albumin Prealbumin LDL Cholesterol Direct Arterial Blood Glucose Arterial Blood Ionized Calcium Urine WBC (Auto) 03/25/20 03/25/20 03/25/20 05:48 17:53 23:18 WBC RBC Hgb Hct MCV MCH RDW Plt Count Lymph % (Auto) Lymph # (Auto) Lucas # (Auto) Seg Neutrophils % Seg Neuts % (Manual) Lymphocytes % (Manual) Monocytes % (Manual) Basophils % (Manual) Seg Neutrophils # Seg Neutrophils # Man Lymphocytes # (Manual) Monocytes # (Manual) Eosinophils # (Manual) Basophils # (Manual) PT INR D-Dimer ABG pH POC ABG pCO2 POC ABG pO2 ABG pO2 ABG HCO3 ABG O2 Saturation ABG Base Excess ABG Hemoglobin ABG Oxyhemoglobin ABG Potassium ABG Glucose Oxyhemoglobin Carboxyhemoglobin Sodium Potassium Chloride Carbon Dioxide BUN Creatinine Glucose POC Glucose 124 H 109 H 131 H Calcium Ferritin Total Bilirubin Alkaline Phosphatase Lactate Dehydrogenase Total Creatine Kinase CK-MB (CK-2) Rel Index Troponin T C-Reactive Protein Total Protein Albumin Prealbumin LDL Cholesterol Direct Arterial Blood Glucose Arterial Blood Ionized Calcium Urine WBC (Auto) 03/26/20 03/26/20 03/26/20 05:21 08:49 08:49 WBC 19.7 H RBC Hgb 10.7 L Hct 33.5 L MCV MCH 27 L RDW 17.1 H Plt Count 480 H Lymph % (Auto) 5.7 L Lymph # (Auto) 1.1 L Lucas # (Auto) 1.2 H Seg Neutrophils % 87.7 H Seg Neuts % (Manual) Lymphocytes % (Manual) Monocytes % (Manual) Basophils % (Manual) Seg Neutrophils # 17.2 H Seg Neutrophils # Man Lymphocytes # (Manual) Monocytes # (Manual) Eosinophils # (Manual) Basophils # (Manual) PT INR D-Dimer ABG pH POC ABG pCO2 POC ABG pO2 ABG pO2 ABG HCO3 ABG O2 Saturation ABG Base Excess ABG Hemoglobin ABG Oxyhemoglobin ABG Potassium ABG Glucose Oxyhemoglobin Carboxyhemoglobin Sodium Potassium Chloride 97.2 L Carbon Dioxide 36 H BUN Creatinine < 0.2 L Glucose 127 H POC Glucose 116 H Calcium Ferritin Total Bilirubin Alkaline Phosphatase Lactate Dehydrogenase Total Creatine Kinase CK-MB (CK-2) Rel Index Troponin T C-Reactive Protein Total Protein Albumin Prealbumin LDL Cholesterol Direct Arterial Blood Glucose Arterial Blood Ionized Calcium Urine WBC (Auto) 03/26/20 03/26/20 03/26/20 11:38 18:44 23:06 WBC RBC Hgb Hct MCV MCH RDW Plt Count Lymph % (Auto) Lymph # (Auto) Lucas # (Auto) Seg Neutrophils % Seg Neuts % (Manual) Lymphocytes % (Manual) Monocytes % (Manual) Basophils % (Manual) Seg Neutrophils # Seg Neutrophils # Man Lymphocytes # (Manual) Monocytes # (Manual) Eosinophils # (Manual) Basophils # (Manual) PT INR D-Dimer ABG pH POC ABG pCO2 POC ABG pO2 ABG pO2 ABG HCO3 ABG O2 Saturation ABG Base Excess ABG Hemoglobin ABG Oxyhemoglobin ABG Potassium ABG Glucose Oxyhemoglobin Carboxyhemoglobin Sodium Potassium Chloride Carbon Dioxide BUN Creatinine Glucose POC Glucose 120 H 111 H 134 H Calcium Ferritin Total Bilirubin Alkaline Phosphatase Lactate Dehydrogenase Total Creatine Kinase CK-MB (CK-2) Rel Index Troponin T C-Reactive Protein Total Protein Albumin Prealbumin LDL Cholesterol Direct Arterial Blood Glucose Arterial Blood Ionized Calcium Urine WBC (Auto) 03/27/20 03/27/20 03/27/20 05:41 05:59 05:59 WBC 18.6 H RBC Hgb 10.1 L Hct 31.4 L MCV MCH RDW 17.2 H Plt Count Lymph % (Auto) 8.0 L Lymph # (Auto) Lucas # (Auto) 1.2 H Seg Neutrophils % 84.7 H Seg Neuts % (Manual) Lymphocytes % (Manual) Monocytes % (Manual) Basophils % (Manual) Seg Neutrophils # 15.8 H Seg Neutrophils # Man Lymphocytes # (Manual) Monocytes # (Manual) Eosinophils # (Manual) Basophils # (Manual) PT INR D-Dimer ABG pH POC ABG pCO2 POC ABG pO2 ABG pO2 ABG HCO3 ABG O2 Saturation ABG Base Excess ABG Hemoglobin ABG Oxyhemoglobin ABG Potassium ABG Glucose Oxyhemoglobin Carboxyhemoglobin Sodium Potassium Chloride Carbon Dioxide 34 H BUN Creatinine < 0.2 L Glucose 127 H POC Glucose 129 H Calcium Ferritin Total Bilirubin Alkaline Phosphatase Lactate Dehydrogenase Total Creatine Kinase CK-MB (CK-2) Rel Index Troponin T C-Reactive Protein Total Protein Albumin Prealbumin LDL Cholesterol Direct Arterial Blood Glucose Arterial Blood Ionized Calcium Urine WBC (Auto) 03/27/20 03/27/20 03/28/20 17:28 23:22 05:23 WBC RBC Hgb Hct MCV MCH RDW Plt Count Lymph % (Auto) Lymph # (Auto) Lucas # (Auto) Seg Neutrophils % Seg Neuts % (Manual) Lymphocytes % (Manual) Monocytes % (Manual) Basophils % (Manual) Seg Neutrophils # Seg Neutrophils # Man Lymphocytes # (Manual) Monocytes # (Manual) Eosinophils # (Manual) Basophils # (Manual) PT INR D-Dimer ABG pH POC ABG pCO2 POC ABG pO2 ABG pO2 ABG HCO3 ABG O2 Saturation ABG Base Excess ABG Hemoglobin ABG Oxyhemoglobin ABG Potassium ABG Glucose Oxyhemoglobin Carboxyhemoglobin Sodium Potassium Chloride Carbon Dioxide BUN Creatinine Glucose POC Glucose 108 H 119 H 129 H Calcium Ferritin Total Bilirubin Alkaline Phosphatase Lactate Dehydrogenase Total Creatine Kinase CK-MB (CK-2) Rel Index Troponin T C-Reactive Protein Total Protein Albumin Prealbumin LDL Cholesterol Direct Arterial Blood Glucose Arterial Blood Ionized Calcium Urine WBC (Auto) 03/28/20 03/28/20 03/28/20 10:28 10:28 11:36 WBC 23.6 H RBC 3.62 L Hgb 10.0 L Hct 30.8 L MCV MCH RDW 16.4 H Plt Count Lymph % (Auto) Lymph # (Auto) Lucas # (Auto) Seg Neutrophils % Seg Neuts % (Manual) 89.0 H Lymphocytes % (Manual) 5.0 L Monocytes % (Manual) Basophils % (Manual) Seg Neutrophils # Seg Neutrophils # Man 21.0 H Lymphocytes # (Manual) Monocytes # (Manual) 1.2 H Eosinophils # (Manual) Basophils # (Manual) 0.2 H PT INR D-Dimer ABG pH POC ABG pCO2 POC ABG pO2 ABG pO2 ABG HCO3 ABG O2 Saturation ABG Base Excess ABG Hemoglobin ABG Oxyhemoglobin ABG Potassium ABG Glucose Oxyhemoglobin Carboxyhemoglobin Sodium 134 L Potassium Chloride 94.2 L Carbon Dioxide 35 H BUN Creatinine < 0.2 L Glucose 134 H POC Glucose Calcium Ferritin Total Bilirubin Alkaline Phosphatase Lactate Dehydrogenase Total Creatine Kinase CK-MB (CK-2) Rel Index Troponin T C-Reactive Protein Total Protein Albumin Prealbumin LDL Cholesterol Direct Arterial Blood Glucose Arterial Blood Ionized Calcium Urine WBC (Auto) 39.0 H 03/28/20 03/28/20 03/28/20 11:51 17:08 17:17 WBC RBC Hgb Hct MCV MCH RDW Plt Count Lymph % (Auto) Lymph # (Auto) Lucas # (Auto) Seg Neutrophils % Seg Neuts % (Manual) Lymphocytes % (Manual) Monocytes % (Manual) Basophils % (Manual) Seg Neutrophils # Seg Neutrophils # Man Lymphocytes # (Manual) Monocytes # (Manual) Eosinophils # (Manual) Basophils # (Manual) PT INR D-Dimer ABG pH POC ABG pCO2 POC ABG pO2 ABG pO2 ABG HCO3 ABG O2 Saturation ABG Base Excess ABG Hemoglobin ABG Oxyhemoglobin ABG Potassium ABG Glucose Oxyhemoglobin Carboxyhemoglobin Sodium Potassium Chloride Carbon Dioxide BUN Creatinine Glucose POC Glucose 123 H 112 H Calcium Ferritin Total Bilirubin Alkaline Phosphatase Lactate Dehydrogenase Total Creatine Kinase 47 L CK-MB (CK-2) Rel Index 4.6 H Troponin T 0.090 H C-Reactive Protein Total Protein Albumin Prealbumin LDL Cholesterol Direct Arterial Blood Glucose Arterial Blood Ionized Calcium Urine WBC (Auto) 03/28/20 03/29/20 03/29/20 23:22 05:22 10:58 WBC RBC Hgb Hct MCV MCH RDW Plt Count Lymph % (Auto) Lymph # (Auto) Lucas # (Auto) Seg Neutrophils % Seg Neuts % (Manual) Lymphocytes % (Manual) Monocytes % (Manual) Basophils % (Manual) Seg Neutrophils # Seg Neutrophils # Man Lymphocytes # (Manual) Monocytes # (Manual) Eosinophils # (Manual) Basophils # (Manual) PT INR D-Dimer ABG pH POC ABG pCO2 POC ABG pO2 ABG pO2 ABG HCO3 ABG O2 Saturation ABG Base Excess ABG Hemoglobin ABG Oxyhemoglobin ABG Potassium ABG Glucose Oxyhemoglobin Carboxyhemoglobin Sodium Potassium Chloride Carbon Dioxide BUN Creatinine Glucose POC Glucose 122 H 116 H 133 H Calcium Ferritin Total Bilirubin Alkaline Phosphatase Lactate Dehydrogenase Total Creatine Kinase CK-MB (CK-2) Rel Index Troponin T C-Reactive Protein Total Protein Albumin Prealbumin LDL Cholesterol Direct Arterial Blood Glucose Arterial Blood Ionized Calcium Urine WBC (Auto) 03/29/20 03/29/20 03/30/20 17:18 23:14 04:57 WBC RBC Hgb Hct MCV MCH RDW Plt Count Lymph % (Auto) Lymph # (Auto) Lucas # (Auto) Seg Neutrophils % Seg Neuts % (Manual) Lymphocytes % (Manual) Monocytes % (Manual) Basophils % (Manual) Seg Neutrophils # Seg Neutrophils # Man Lymphocytes # (Manual) Monocytes # (Manual) Eosinophils # (Manual) Basophils # (Manual) PT INR D-Dimer ABG pH POC ABG pCO2 POC ABG pO2 ABG pO2 ABG HCO3 ABG O2 Saturation ABG Base Excess ABG Hemoglobin ABG Oxyhemoglobin ABG Potassium ABG Glucose Oxyhemoglobin Carboxyhemoglobin Sodium Potassium Chloride Carbon Dioxide BUN Creatinine Glucose POC Glucose 111 H 114 H 130 H Calcium Ferritin Total Bilirubin Alkaline Phosphatase Lactate Dehydrogenase Total Creatine Kinase CK-MB (CK-2) Rel Index Troponin T C-Reactive Protein Total Protein Albumin Prealbumin LDL Cholesterol Direct Arterial Blood Glucose Arterial Blood Ionized Calcium Urine WBC (Auto) 03/30/20 03/30/20 03/30/20 11:38 14:47 14:47 WBC 19.9 H RBC Hgb 10.9 L Hct 34.4 L MCV MCH 27 L RDW 16.5 H Plt Count 441 H Lymph % (Auto) 6.4 L Lymph # (Auto) Lucas # (Auto) 1.4 H Seg Neutrophils % 86.1 H Seg Neuts % (Manual) Lymphocytes % (Manual) Monocytes % (Manual) Basophils % (Manual) Seg Neutrophils # 17.1 H Seg Neutrophils # Man Lymphocytes # (Manual) Monocytes # (Manual) Eosinophils # (Manual) Basophils # (Manual) PT INR D-Dimer ABG pH POC ABG pCO2 POC ABG pO2 ABG pO2 ABG HCO3 ABG O2 Saturation ABG Base Excess ABG Hemoglobin ABG Oxyhemoglobin ABG Potassium ABG Glucose Oxyhemoglobin Carboxyhemoglobin Sodium 133 L Potassium Chloride 94.6 L Carbon Dioxide 33 H BUN Creatinine < 0.2 L Glucose 194 H POC Glucose 139 H Calcium Ferritin Total Bilirubin Alkaline Phosphatase Lactate Dehydrogenase Total Creatine Kinase CK-MB (CK-2) Rel Index Troponin T C-Reactive Protein Total Protein Albumin 2.8 L Prealbumin LDL Cholesterol Direct Arterial Blood Glucose Arterial Blood Ionized Calcium Urine WBC (Auto) 03/30/20 03/31/20 03/31/20 17:07 05:02 15:21 WBC RBC Hgb Hct MCV MCH RDW Plt Count Lymph % (Auto) Lymph # (Auto) Lucas # (Auto) Seg Neutrophils % Seg Neuts % (Manual) Lymphocytes % (Manual) Monocytes % (Manual) Basophils % (Manual) Seg Neutrophils # Seg Neutrophils # Man Lymphocytes # (Manual) Monocytes # (Manual) Eosinophils # (Manual) Basophils # (Manual) PT INR D-Dimer ABG pH POC ABG pCO2 POC ABG pO2 ABG pO2 ABG HCO3 ABG O2 Saturation ABG Base Excess ABG Hemoglobin ABG Oxyhemoglobin ABG Potassium ABG Glucose Oxyhemoglobin Carboxyhemoglobin Sodium Potassium Chloride Carbon Dioxide BUN Creatinine Glucose POC Glucose 163 H 108 H 110 H Calcium Ferritin Total Bilirubin Alkaline Phosphatase Lactate Dehydrogenase Total Creatine Kinase CK-MB (CK-2) Rel Index Troponin T C-Reactive Protein Total Protein Albumin Prealbumin LDL Cholesterol Direct Arterial Blood Glucose Arterial Blood Ionized Calcium Urine WBC (Auto) 03/31/20 03/31/20 04/01/20 17:58 23:19 05:09 WBC RBC Hgb Hct MCV MCH RDW Plt Count Lymph % (Auto) Lymph # (Auto) Lucas # (Auto) Seg Neutrophils % Seg Neuts % (Manual) Lymphocytes % (Manual) Monocytes % (Manual) Basophils % (Manual) Seg Neutrophils # Seg Neutrophils # Man Lymphocytes # (Manual) Monocytes # (Manual) Eosinophils # (Manual) Basophils # (Manual) PT INR D-Dimer ABG pH POC ABG pCO2 POC ABG pO2 ABG pO2 ABG HCO3 ABG O2 Saturation ABG Base Excess ABG Hemoglobin ABG Oxyhemoglobin ABG Potassium ABG Glucose Oxyhemoglobin Carboxyhemoglobin Sodium Potassium Chloride Carbon Dioxide BUN Creatinine Glucose POC Glucose 110 H 131 H 124 H Calcium Ferritin Total Bilirubin Alkaline Phosphatase Lactate Dehydrogenase Total Creatine Kinase CK-MB (CK-2) Rel Index Troponin T C-Reactive Protein Total Protein Albumin Prealbumin LDL Cholesterol Direct Arterial Blood Glucose Arterial Blood Ionized Calcium Urine WBC (Auto) 04/01/20 04/01/20 04/01/20 11:50 17:01 23:21 WBC RBC Hgb Hct MCV MCH RDW Plt Count Lymph % (Auto) Lymph # (Auto) Lucas # (Auto) Seg Neutrophils % Seg Neuts % (Manual) Lymphocytes % (Manual) Monocytes % (Manual) Basophils % (Manual) Seg Neutrophils # Seg Neutrophils # Man Lymphocytes # (Manual) Monocytes # (Manual) Eosinophils # (Manual) Basophils # (Manual) PT INR D-Dimer ABG pH POC ABG pCO2 POC ABG pO2 ABG pO2 ABG HCO3 ABG O2 Saturation ABG Base Excess ABG Hemoglobin ABG Oxyhemoglobin ABG Potassium ABG Glucose Oxyhemoglobin Carboxyhemoglobin Sodium Potassium Chloride Carbon Dioxide BUN Creatinine Glucose POC Glucose 136 H 115 H 124 H Calcium Ferritin Total Bilirubin Alkaline Phosphatase Lactate Dehydrogenase Total Creatine Kinase CK-MB (CK-2) Rel Index Troponin T C-Reactive Protein Total Protein Albumin Prealbumin LDL Cholesterol Direct Arterial Blood Glucose Arterial Blood Ionized Calcium Urine WBC (Auto) 04/02/20 04/02/20 04/02/20 05:27 11:58 17:58 WBC RBC Hgb Hct MCV MCH RDW Plt Count Lymph % (Auto) Lymph # (Auto) Lucas # (Auto) Seg Neutrophils % Seg Neuts % (Manual) Lymphocytes % (Manual) Monocytes % (Manual) Basophils % (Manual) Seg Neutrophils # Seg Neutrophils # Man Lymphocytes # (Manual) Monocytes # (Manual) Eosinophils # (Manual) Basophils # (Manual) PT INR D-Dimer ABG pH POC ABG pCO2 POC ABG pO2 ABG pO2 ABG HCO3 ABG O2 Saturation ABG Base Excess ABG Hemoglobin ABG Oxyhemoglobin ABG Potassium ABG Glucose Oxyhemoglobin Carboxyhemoglobin Sodium Potassium Chloride Carbon Dioxide BUN Creatinine Glucose POC Glucose 117 H 133 H 122 H Calcium Ferritin Total Bilirubin Alkaline Phosphatase Lactate Dehydrogenase Total Creatine Kinase CK-MB (CK-2) Rel Index Troponin T C-Reactive Protein Total Protein Albumin Prealbumin LDL Cholesterol Direct Arterial Blood Glucose Arterial Blood Ionized Calcium Urine WBC (Auto) 04/02/20 04/03/20 04/03/20 23:12 05:11 11:11 WBC RBC Hgb Hct MCV MCH RDW Plt Count Lymph % (Auto) Lymph # (Auto) Lucas # (Auto) Seg Neutrophils % Seg Neuts % (Manual) Lymphocytes % (Manual) Monocytes % (Manual) Basophils % (Manual) Seg Neutrophils # Seg Neutrophils # Man Lymphocytes # (Manual) Monocytes # (Manual) Eosinophils # (Manual) Basophils # (Manual) PT INR D-Dimer ABG pH POC ABG pCO2 POC ABG pO2 ABG pO2 ABG HCO3 ABG O2 Saturation ABG Base Excess ABG Hemoglobin ABG Oxyhemoglobin ABG Potassium ABG Glucose Oxyhemoglobin Carboxyhemoglobin Sodium Potassium Chloride Carbon Dioxide BUN Creatinine Glucose POC Glucose 130 H 139 H 136 H Calcium Ferritin Total Bilirubin Alkaline Phosphatase Lactate Dehydrogenase Total Creatine Kinase CK-MB (CK-2) Rel Index Troponin T C-Reactive Protein Total Protein Albumin Prealbumin LDL Cholesterol Direct Arterial Blood Glucose Arterial Blood Ionized Calcium Urine WBC (Auto) 04/03/20 04/03/20 04/04/20 16:51 23:25 05:29 WBC RBC Hgb Hct MCV MCH RDW Plt Count Lymph % (Auto) Lymph # (Auto) Lucas # (Auto) Seg Neutrophils % Seg Neuts % (Manual) Lymphocytes % (Manual) Monocytes % (Manual) Basophils % (Manual) Seg Neutrophils # Seg Neutrophils # Man Lymphocytes # (Manual) Monocytes # (Manual) Eosinophils # (Manual) Basophils # (Manual) PT INR D-Dimer ABG pH POC ABG pCO2 POC ABG pO2 ABG pO2 ABG HCO3 ABG O2 Saturation ABG Base Excess ABG Hemoglobin ABG Oxyhemoglobin ABG Potassium ABG Glucose Oxyhemoglobin Carboxyhemoglobin Sodium Potassium Chloride Carbon Dioxide BUN Creatinine Glucose POC Glucose 118 H 111 H 126 H Calcium Ferritin Total Bilirubin Alkaline Phosphatase Lactate Dehydrogenase Total Creatine Kinase CK-MB (CK-2) Rel Index Troponin T C-Reactive Protein Total Protein Albumin Prealbumin LDL Cholesterol Direct Arterial Blood Glucose Arterial Blood Ionized Calcium Urine WBC (Auto) 04/04/20 04/04/20 04/04/20 11:47 17:41 23:05 WBC RBC Hgb Hct MCV MCH RDW Plt Count Lymph % (Auto) Lymph # (Auto) Lucas # (Auto) Seg Neutrophils % Seg Neuts % (Manual) Lymphocytes % (Manual) Monocytes % (Manual) Basophils % (Manual) Seg Neutrophils # Seg Neutrophils # Man Lymphocytes # (Manual) Monocytes # (Manual) Eosinophils # (Manual) Basophils # (Manual) PT INR D-Dimer ABG pH POC ABG pCO2 POC ABG pO2 ABG pO2 ABG HCO3 ABG O2 Saturation ABG Base Excess ABG Hemoglobin ABG Oxyhemoglobin ABG Potassium ABG Glucose Oxyhemoglobin Carboxyhemoglobin Sodium Potassium Chloride Carbon Dioxide BUN Creatinine Glucose POC Glucose 123 H 120 H 119 H Calcium Ferritin Total Bilirubin Alkaline Phosphatase Lactate Dehydrogenase Total Creatine Kinase CK-MB (CK-2) Rel Index Troponin T C-Reactive Protein Total Protein Albumin Prealbumin LDL Cholesterol Direct Arterial Blood Glucose Arterial Blood Ionized Calcium Urine WBC (Auto) 04/05/20 04/05/20 04/05/20 05:14 12:16 18:48 WBC RBC Hgb Hct MCV MCH RDW Plt Count Lymph % (Auto) Lymph # (Auto) Lucas # (Auto) Seg Neutrophils % Seg Neuts % (Manual) Lymphocytes % (Manual) Monocytes % (Manual) Basophils % (Manual) Seg Neutrophils # Seg Neutrophils # Man Lymphocytes # (Manual) Monocytes # (Manual) Eosinophils # (Manual) Basophils # (Manual) PT INR D-Dimer ABG pH POC ABG pCO2 POC ABG pO2 ABG pO2 ABG HCO3 ABG O2 Saturation ABG Base Excess ABG Hemoglobin ABG Oxyhemoglobin ABG Potassium ABG Glucose Oxyhemoglobin Carboxyhemoglobin Sodium Potassium Chloride Carbon Dioxide BUN Creatinine Glucose POC Glucose 123 H 148 H 106 H Calcium Ferritin Total Bilirubin Alkaline Phosphatase Lactate Dehydrogenase Total Creatine Kinase CK-MB (CK-2) Rel Index Troponin T C-Reactive Protein Total Protein Albumin Prealbumin LDL Cholesterol Direct Arterial Blood Glucose Arterial Blood Ionized Calcium Urine WBC (Auto) 04/06/20 04/06/20 04/06/20 00:47 03:26 08:24 WBC RBC Hgb Hct MCV MCH RDW Plt Count Lymph % (Auto) Lymph # (Auto) Lucas # (Auto) Seg Neutrophils % Seg Neuts % (Manual) Lymphocytes % (Manual) Monocytes % (Manual) Basophils % (Manual) Seg Neutrophils # Seg Neutrophils # Man Lymphocytes # (Manual) Monocytes # (Manual) Eosinophils # (Manual) Basophils # (Manual) PT INR D-Dimer ABG pH POC ABG pCO2 POC ABG pO2 ABG pO2 ABG HCO3 ABG O2 Saturation ABG Base Excess ABG Hemoglobin ABG Oxyhemoglobin ABG Potassium ABG Glucose Oxyhemoglobin Carboxyhemoglobin Sodium Potassium Chloride Carbon Dioxide BUN Creatinine Glucose POC Glucose 129 H 134 H 131 H Calcium Ferritin Total Bilirubin Alkaline Phosphatase Lactate Dehydrogenase Total Creatine Kinase CK-MB (CK-2) Rel Index Troponin T C-Reactive Protein Total Protein Albumin Prealbumin LDL Cholesterol Direct Arterial Blood Glucose Arterial Blood Ionized Calcium Urine WBC (Auto) 04/06/20 04/06/20 04/06/20 11:16 16:27 23:01 WBC RBC Hgb Hct MCV MCH RDW Plt Count Lymph % (Auto) Lymph # (Auto) Lucas # (Auto) Seg Neutrophils % Seg Neuts % (Manual) Lymphocytes % (Manual) Monocytes % (Manual) Basophils % (Manual) Seg Neutrophils # Seg Neutrophils # Man Lymphocytes # (Manual) Monocytes # (Manual) Eosinophils # (Manual) Basophils # (Manual) PT INR D-Dimer ABG pH POC ABG pCO2 POC ABG pO2 ABG pO2 ABG HCO3 ABG O2 Saturation ABG Base Excess ABG Hemoglobin ABG Oxyhemoglobin ABG Potassium ABG Glucose Oxyhemoglobin Carboxyhemoglobin Sodium Potassium Chloride Carbon Dioxide BUN Creatinine Glucose POC Glucose 131 H 107 H 125 H Calcium Ferritin Total Bilirubin Alkaline Phosphatase Lactate Dehydrogenase Total Creatine Kinase CK-MB (CK-2) Rel Index Troponin T C-Reactive Protein Total Protein Albumin Prealbumin LDL Cholesterol Direct Arterial Blood Glucose Arterial Blood Ionized Calcium Urine WBC (Auto) 04/07/20 04/07/20 04/07/20 05:24 12:41 17:40 WBC RBC Hgb Hct MCV MCH RDW Plt Count Lymph % (Auto) Lymph # (Auto) Lucas # (Auto) Seg Neutrophils % Seg Neuts % (Manual) Lymphocytes % (Manual) Monocytes % (Manual) Basophils % (Manual) Seg Neutrophils # Seg Neutrophils # Man Lymphocytes # (Manual) Monocytes # (Manual) Eosinophils # (Manual) Basophils # (Manual) PT INR D-Dimer ABG pH POC ABG pCO2 POC ABG pO2 ABG pO2 ABG HCO3 ABG O2 Saturation ABG Base Excess ABG Hemoglobin ABG Oxyhemoglobin ABG Potassium ABG Glucose Oxyhemoglobin Carboxyhemoglobin Sodium Potassium Chloride Carbon Dioxide BUN Creatinine Glucose POC Glucose 125 H 145 H 123 H Calcium Ferritin Total Bilirubin Alkaline Phosphatase Lactate Dehydrogenase Total Creatine Kinase CK-MB (CK-2) Rel Index Troponin T C-Reactive Protein Total Protein Albumin Prealbumin LDL Cholesterol Direct Arterial Blood Glucose Arterial Blood Ionized Calcium Urine WBC (Auto) 04/07/20 04/08/20 04/08/20 23:22 05:40 11:29 WBC RBC Hgb Hct MCV MCH RDW Plt Count Lymph % (Auto) Lymph # (Auto) Lucas # (Auto) Seg Neutrophils % Seg Neuts % (Manual) Lymphocytes % (Manual) Monocytes % (Manual) Basophils % (Manual) Seg Neutrophils # Seg Neutrophils # Man Lymphocytes # (Manual) Monocytes # (Manual) Eosinophils # (Manual) Basophils # (Manual) PT INR D-Dimer ABG pH POC ABG pCO2 POC ABG pO2 ABG pO2 ABG HCO3 ABG O2 Saturation ABG Base Excess ABG Hemoglobin ABG Oxyhemoglobin ABG Potassium ABG Glucose Oxyhemoglobin Carboxyhemoglobin Sodium Potassium Chloride Carbon Dioxide BUN Creatinine Glucose POC Glucose 133 H 125 H 116 H Calcium Ferritin Total Bilirubin Alkaline Phosphatase Lactate Dehydrogenase Total Creatine Kinase CK-MB (CK-2) Rel Index Troponin T C-Reactive Protein Total Protein Albumin Prealbumin LDL Cholesterol Direct Arterial Blood Glucose Arterial Blood Ionized Calcium Urine WBC (Auto) 04/08/20 04/09/20 04/09/20 17:43 05:47 12:22 WBC RBC Hgb Hct MCV MCH RDW Plt Count Lymph % (Auto) Lymph # (Auto) Lucas # (Auto) Seg Neutrophils % Seg Neuts % (Manual) Lymphocytes % (Manual) Monocytes % (Manual) Basophils % (Manual) Seg Neutrophils # Seg Neutrophils # Man Lymphocytes # (Manual) Monocytes # (Manual) Eosinophils # (Manual) Basophils # (Manual) PT INR D-Dimer ABG pH POC ABG pCO2 POC ABG pO2 ABG pO2 ABG HCO3 ABG O2 Saturation ABG Base Excess ABG Hemoglobin ABG Oxyhemoglobin ABG Potassium ABG Glucose Oxyhemoglobin Carboxyhemoglobin Sodium Potassium Chloride Carbon Dioxide BUN Creatinine Glucose POC Glucose 123 H 108 H 116 H Calcium Ferritin Total Bilirubin Alkaline Phosphatase Lactate Dehydrogenase Total Creatine Kinase CK-MB (CK-2) Rel Index Troponin T C-Reactive Protein Total Protein Albumin Prealbumin LDL Cholesterol Direct Arterial Blood Glucose Arterial Blood Ionized Calcium Urine WBC (Auto) 04/09/20 04/09/20 04/10/20 17:24 23:52 06:10 WBC RBC Hgb Hct MCV MCH RDW Plt Count Lymph % (Auto) Lymph # (Auto) Lucas # (Auto) Seg Neutrophils % Seg Neuts % (Manual) Lymphocytes % (Manual) Monocytes % (Manual) Basophils % (Manual) Seg Neutrophils # Seg Neutrophils # Man Lymphocytes # (Manual) Monocytes # (Manual) Eosinophils # (Manual) Basophils # (Manual) PT INR D-Dimer ABG pH POC ABG pCO2 POC ABG pO2 ABG pO2 ABG HCO3 ABG O2 Saturation ABG Base Excess ABG Hemoglobin ABG Oxyhemoglobin ABG Potassium ABG Glucose Oxyhemoglobin Carboxyhemoglobin Sodium Potassium Chloride Carbon Dioxide BUN Creatinine Glucose POC Glucose 108 H 126 H 122 H Calcium Ferritin Total Bilirubin Alkaline Phosphatase Lactate Dehydrogenase Total Creatine Kinase CK-MB (CK-2) Rel Index Troponin T C-Reactive Protein Total Protein Albumin Prealbumin LDL Cholesterol Direct Arterial Blood Glucose Arterial Blood Ionized Calcium Urine WBC (Auto) 04/10/20 11:27 WBC RBC Hgb Hct MCV MCH RDW Plt Count Lymph % (Auto) Lymph # (Auto) Lucas # (Auto) Seg Neutrophils % Seg Neuts % (Manual) Lymphocytes % (Manual) Monocytes % (Manual) Basophils % (Manual) Seg Neutrophils # Seg Neutrophils # Man Lymphocytes # (Manual) Monocytes # (Manual) Eosinophils # (Manual) Basophils # (Manual) PT INR D-Dimer ABG pH POC ABG pCO2 POC ABG pO2 ABG pO2 ABG HCO3 ABG O2 Saturation ABG Base Excess ABG Hemoglobin ABG Oxyhemoglobin ABG Potassium ABG Glucose Oxyhemoglobin Carboxyhemoglobin Sodium Potassium Chloride Carbon Dioxide BUN Creatinine Glucose POC Glucose 129 H Calcium Ferritin Total Bilirubin Alkaline Phosphatase Lactate Dehydrogenase Total Creatine Kinase CK-MB (CK-2) Rel Index Troponin T C-Reactive Protein Total Protein Albumin Prealbumin LDL Cholesterol Direct Arterial Blood Glucose Arterial Blood Ionized Calcium Urine WBC (Auto) Allied health notes reviewed: RT
[2020-04-10] MEDS: ALPRAZolam 0.5 MG TAB PO PRN (18:38)
[2020-04-10] MEDS: ENOXAPARIN 40 MG/0.4 ML INJ SUB-Q SCH (22:15)
[2020-04-10] MEDS: SENNOSIDES 8.6 MG TAB PO SCH (22:17)
[2020-04-10] MEDS: ZOLPIDEM 5 MG TAB PO PRN (22:19)
[2020-04-11] MEDS: ALPRAZolam 0.5 MG TAB PO PRN (02:14)
[2020-04-11] MEDS: MORPHINE 2 MG/1 ML INJ IV PRN ×4 (03:08→20:55)
[2020-04-11] MEDS: DOCUSATE SODIUM 100 MG/10 ML ORAL LIQD FEEDTUBE SCH ×2 (09:18→21:20)
[2020-04-11] MEDS: SCOPOLAMINE TRANSDERMAL PATCH 72 HR TD SCH (09:19)
[2020-04-11] MEDS: LANSOPRAZOLE 30 MG SOLUTAB FEEDTUBE SCH (09:19)
[2020-04-11] MEDS: GLYCOPYRROLATE 1 MG TAB PO SCH ×3 (09:19→20:56)
[2020-04-11] MEDS: TAMSULOSIN 0.4 MG CAP PO SCH (09:20)
[2020-04-11] MEDS: BACLOFEN 10 MG TAB PO SCH ×2 (09:20→21:20)
[2020-04-11] MEDS: PREGABALIN 75 MG CAP PO SCH ×2 (09:20→21:19)
[2020-04-11] MEDS: SODIUM HYPOCHLORITE, DAKIN'S 1/2 STRENGTH (0.25%) 473 ML TOPICAL SOLN TP SCH ×2 (09:21→21:37)
[2020-04-11] MEDS: LIDOCAINE 5% 1 EACH PATCH TD SCH (09:21)
[2020-04-11] MEDS: METOPROLOL TARTRATE 25 MG TAB PO SCH ×2 (09:22→21:23)
--- NOTE | 2020-04-11 11:06 | Progress Note ---
Assessment and Plan Patient sleeping. weak. Resting on assist control mechanical ventilation, rate 10, Tidal volume 400, FIO2 30%, PEEP 6 and O2 saturation running 100%. Patient afebrile and has leukocytosis. Chest xray done 03/28/20 reported no acute findin gs. Patient guevara virus negative. I spent critical care time of 33 minutes, review the chart, examining the patient,Review chest xray, labs, talking to the nursing staff and respiratory therapist and work out plan of tratment in this critically ill patient. - Patient Problems (1) Acute on chronic respiratory failure with hypoxia and hypercapnia Current Visit: Yes Status: Acute Plan to address problem: Patient is on assist control mechanical ventilation, rate 10, tidal volume 400, FIO2 30%, PEEP 6. Albuterol inhaler 2 puffs po qid. Continue S/C Lovenox. Continue prevacid. (2) Bleeding from wound Current Visit: Yes Status: Acute Plan to address problem: Management primary care , surgery and wound care. (3) Elevated d-dimer Current Visit: Yes Status: Acute Plan to address problem: Patients venous doppler studies of legs, CTA chest reported Negative for VTE. Patient is on S/C Lovenox 40 mg qd. (4) Elevated troponin Current Visit: Yes Status: Acute Plan to address problem: Management as per primary care and cardiology (5) NSTEMI (non-ST elevated myocardial infarction) Current Visit: Yes Status: Acute Plan to address problem: Management as per cardiology. (6) Pneumonia Current Visit: Yes Status: Acute Qualifiers: Laterality: bilateral Plan to address problem: Patient was treated with ceftriaxone, zosyn and zithromax. Patient afebrile. Repeat chest xray 03/28/20 reported no acute fingings. Subjective Date of service: 04/11/20 Principal diagnosis: Ac on Ch Hypercapnic & hypoxemic Resp Failure; Severe Sepsis; Jamar PNA; ALS Interval history: Patient sleeping. weak. Resting on assist control mechanical ventilation, rate 10, Tidal volume 400, FIO2 30%, PEEP 6 and O2 saturation running 100%. Patient afebrile and has leukocytosis. Chest xray done 03/28/20 reported no acute findings. Patient guevara virus negative. Objective Vital Signs - 12hr 04/10/20 04/10/20 04/10/20 23:16 23:30 23:46 Temperature Pulse Rate 120 H 116 H 117 H Pulse Rate [ From Monitor] Respiratory 22 17 20 Rate Blood Pressure 100/69 100/69 100/69 O2 Sat by Pulse 99 97 97 Oximetry 04/11/20 04/11/20 04/11/20 00:00 00:16 00:30 Temperature 97.4 F L Pulse Rate 118 H 118 H 117 H Pulse Rate [ 116 H From Monitor] Respiratory 19 22 8 L Rate Blood Pressure 107/74 107/74 106/71 O2 Sat by Pulse 96 96 98 Oximetry 04/11/20 04/11/20 04/11/20 00:46 01:00 01:16 Temperature Pulse Rate 120 H 118 H 117 H Pulse Rate [ From Monitor] Respiratory 20 19 19 Rate Blood Pressure 107/74 112/77 112/77 O2 Sat by Pulse 97 97 98 Oximetry 04/11/20 04/11/20 04/11/20 01:30 01:46 02:00 Temperature Pulse Rate 111 H 107 H 116 H Pulse Rate [ From Monitor] Respiratory 19 19 20 Rate Blood Pressure 112/77 112/77 113/79 O2 Sat by Pulse 98 98 Oximetry 04/11/20 04/11/20 04/11/20 02:16 02:30 02:46 Temperature Pulse Rate 118 H 118 H 117 H Pulse Rate [ From Monitor] Respiratory 21 22 21 Rate Blood Pressure 113/79 113/79 113/79 O2 Sat by Pulse 98 98 98 Oximetry 04/11/20 04/11/20 04/11/20 03:00 03:08 03:16 Temperature Pulse Rate 117 H 118 H Pulse Rate [ From Monitor] Respiratory 16 20 22 Rate Blood Pressure 110/81 110/81 O2 Sat by Pulse 98 Oximetry 04/11/20 04/11/20 04/11/20 03:30 03:46 04:00 Temperature 97.6 F Pulse Rate 111 H 104 H 104 H Pulse Rate [ 102 H From Monitor] Respiratory 23 39 H 30 H Rate Blood Pressure 110/81 110/81 107/72 O2 Sat by Pulse 98 98 98 Oximetry 04/11/20 04/11/20 04/11/20 04:16 04:30 04:45 Temperature Pulse Rate 98 H 101 H 109 H Pulse Rate [ From Monitor] Respiratory 30 H 34 H 8 L Rate Blood Pressure 107/72 107/72 112/76 O2 Sat by Pulse 99 99 100 Oximetry 12/04/11/20 04/11/20 04:46 05:00 05:16 Temperature Pulse Rate 101 H 101 H 98 H Pulse Rate [ From Monitor] Respiratory 33 H 40 H 33 H Rate Blood Pressure 107/72 112/76 112/76 O2 Sat by Pulse 99 98 99 Oximetry 04/11/20 04/11/20 04/11/20 05:30 05:46 06:00 Temperature Pulse Rate 102 H 102 H 102 H Pulse Rate [ From Monitor] Respiratory 25 H 20 22 Rate Blood Pressure 112/76 112/76 109/70 O2 Sat by Pulse 100 99 99 Oximetry 04/11/20 04/11/20 04/11/20 06:16 06:30 06:46 Temperature Pulse Rate 112 H 105 H 107 H Pulse Rate [ From Monitor] Respiratory 21 24 23 Rate Blood Pressure 109/70 109/70 109/70 O2 Sat by Pulse 100 99 99 Oximetry 04/11/20 04/11/20 04/11/20 07:00 07:16 07:30 Temperature Pulse Rate 111 H 112 H 109 H Pulse Rate [ From Monitor] Respiratory 19 19 21 Rate Blood Pressure 107/69 107/69 107/69 O2 Sat by Pulse 99 99 99 Oximetry 04/11/20 04/11/20 04/11/20 07:39 07:46 08:00 Temperature 98.3 F Pulse Rate 117 H 99 H 100 H Pulse Rate [ 102 H From Monitor] Respiratory 26 H 27 H Rate Blood Pressure 107/69 107/69 103/72 O2 Sat by Pulse 99 99 97 Oximetry 04/11/20 08:16 Temperature Pulse Rate 98 H Pulse Rate [ From Monitor] Respiratory 28 H Rate Blood Pressure 103/72 O2 Sat by Pulse 99 Oximetry Constitutional: no acute distress, asleep, other (thin middle aged male with normal respiratory effort at rest on MVS) Eyes: non-icteric ENT: oropharynx moist, other (S/P Tracheostomy) Neck: supple, no lymphadenopathy, no JVD Effort: mildly labored Ascultation: Bilateral: diminished breath sounds, wheezes, rhonchi Percussion: Bilateral: not dull Cardiovascular: regular rate and rhythm, other (S1,S2, no murmurs) Gastrointestinal: normoactive bowel sounds, soft, non-tender, non-distended, other (+ distended but non tender suprapubis) Integumentary: normal, decubitus ulcer (sacral / gluteal) Extremities: no cyanosis, no edema, pulses normal, other (atrophic looking limbs ) Neurologic: pupils equal and round, other (motor strength in extremities 1-2/5, awake, alert, mouths words to make needs known) Psychiatric: depressed CBC and BMP: 03/30/20 14:47 03/30/20 14:47 ABG, PT/INR, D-dimer: ABG ABG pH 7.371 (7.320-7.450) 03/08/20 12:34 POC ABG pCO2 63.1 mmHg (32.0-48.0) H 03/08/20 12:34 ABG pCO2 60.1 mm Hg 03/06/20 04:34 POC ABG pO2 90.5 mmHg (83-108) 03/08/20 12:34 ABG pO2 88.6 mm Hg (80.0-90.0) 03/06/20 04:34 POC ABG HCO3 35.7 03/08/20 12:34 ABG O2 Saturation 97.0 % (95.0-99.0) 03/06/20 04:34 PT/INR, D-dimer PT 15.6 Sec. (12.2-14.9) H 02/24/20 09:19 INR 1.21 (0.87-1.13) H 02/24/20 09:19 D-Dimer 1311.96 ng/mlDDU (0-234) H 02/24/20 09:19 Abnormal lab findings: Abnormal Labs 02/24/20 02/24/20 02/24/20 09:19 09:19 09:19 WBC 20.2 H RBC 5.05 H Hgb Hct MCV MCH RDW 15.3 H Plt Count Lymph % (Auto) Lymph # (Auto) [place] # (Auto) Seg Neutrophils % Seg Neuts % (Manual) 86.0 H Lymphocytes % (Manual) 1.0 L Monocytes % (Manual) Basophils % (Manual) Seg Neutrophils # Seg Neutrophils # Man 17.4 H Lymphocytes # (Manual) 0.2 L Monocytes # (Manual) Eosinophils # (Manual) Basophils # (Manual) PT 15.6 H INR 1.21 H D-Dimer 1311.96 H ABG pH POC ABG pCO2 POC ABG pO2 ABG pO2 ABG HCO3 ABG O2 Saturation ABG Base Excess ABG Hemoglobin ABG Oxyhemoglobin ABG Potassium ABG Glucose Oxyhemoglobin Carboxyhemoglobin Sodium 135 L Potassium 3.2 L Chloride 92.2 L Carbon Dioxide BUN 6 L Creatinine < 0.2 L Glucose 124 H POC Glucose Calcium Ferritin Total Bilirubin 2.30 H Alkaline Phosphatase 132 H Lactate Dehydrogenase Total Creatine Kinase CK-MB (CK-2) Rel Index Troponin T 0.080 H C-Reactive Protein Total Protein Albumin 3.6 L Prealbumin LDL Cholesterol Direct 41 L Arterial Blood Glucose Arterial Blood Ionized Calcium Urine WBC (Auto) 02/24/20 02/24/20 02/24/20 09:19 09:58 10:01 WBC RBC Hgb Hct MCV MCH RDW Plt Count Lymph % (Auto) Lymph # (Auto) [place] # (Auto) Seg Neutrophils % Seg Neuts % (Manual) Lymphocytes % (Manual) Monocytes % (Manual) Basophils % (Manual) Seg Neutrophils # Seg Neutrophils # Man Lymphocytes # (Manual) Monocytes # (Manual) Eosinophils # (Manual) Basophils # (Manual) PT INR D-Dimer ABG pH 7.176 L* POC ABG pCO2 POC ABG pO2 ABG pO2 91.2 H ABG HCO3 ABG O2 Saturation ABG Base Excess -4.6 L ABG Hemoglobin ABG Oxyhemoglobin ABG Potassium ABG Glucose Oxyhemoglobin 92.6 L Carboxyhemoglobin Sodium Potassium Chloride Carbon Dioxide BUN Creatinine Glucose POC Glucose Calcium Ferritin 1715.0 H Total Bilirubin Alkaline Phosphatase Lactate Dehydrogenase 303 H Total Creatine Kinase CK-MB (CK-2) Rel Index Troponin T C-Reactive Protein 26.10 H Total Protein Albumin Prealbumin LDL Cholesterol Direct Arterial Blood Glucose Arterial Blood Ionized Calcium Urine WBC (Auto) 02/24/20 02/24/20 02/24/20 11:52 13:45 19:35 WBC RBC Hgb Hct MCV MCH RDW Plt Count Lymph % (Auto) Lymph # (Auto) [place] # (Auto) Seg Neutrophils % Seg Neuts % (Manual) Lymphocytes % (Manual) Monocytes % (Manual) Basophils % (Manual) Seg Neutrophils # Seg Neutrophils # Man Lymphocytes # (Manual) Monocytes # (Manual) Eosinophils # (Manual) Basophils # (Manual) PT INR D-Dimer ABG pH 7.051 L* 7.300 L POC ABG pCO2 POC ABG pO2 ABG pO2 94.7 H 75.1 L ABG HCO3 18.0 L ABG O2 Saturation 93.5 L ABG Base Excess -6.8 L -7.8 L ABG Hemoglobin 13.2 L 11.9 L ABG Oxyhemoglobin ABG Potassium ABG Glucose Oxyhemoglobin 91.0 L 92.7 L Carboxyhemoglobin Sodium Potassium Chloride Carbon Dioxide BUN Creatinine Glucose POC Glucose Calcium Ferritin Total Bilirubin Alkaline Phosphatase Lactate Dehydrogenase Total Creatine Kinase CK-MB (CK-2) Rel Index Troponin T 0.034 H D C-Reactive Protein Total Protein Albumin Prealbumin LDL Cholesterol Direct Arterial Blood Glucose Arterial Blood Ionized Calcium Urine WBC (Auto) 02/25/20 02/25/20 02/25/20 04:00 04:00 12:26 WBC 22.9 H RBC Hgb Hct MCV 83 L MCH 27 L RDW Plt Count 468 H Lymph % (Auto) Lymph # (Auto) [place] # (Auto) Seg Neutrophils % Seg Neuts % (Manual) 89.0 H Lymphocytes % (Manual) 7.0 L Monocytes % (Manual) Basophils % (Manual) Seg Neutrophils # Seg Neutrophils # Man 20.4 H Lymphocytes # (Manual) Monocytes # (Manual) Eosinophils # (Manual) Basophils # (Manual) PT INR D-Dimer ABG pH POC ABG pCO2 POC ABG pO2 ABG pO2 ABG HCO3 ABG O2 Saturation ABG Base Excess ABG Hemoglobin ABG Oxyhemoglobin ABG Potassium 2.6 L ABG Glucose 142 H Oxyhemoglobin Carboxyhemoglobin Sodium Potassium 3.2 L Chloride Carbon Dioxide 18 L BUN Creatinine 0.2 L Glucose 114 H POC Glucose Calcium Ferritin Total Bilirubin Alkaline Phosphatase Lactate Dehydrogenase Total Creatine Kinase CK-MB (CK-2) Rel Index Troponin T C-Reactive Protein Total Protein Albumin 3.5 L Prealbumin LDL Cholesterol Direct Arterial Blood Glucose 142 H Arterial Blood Ionized Calcium Urine WBC (Auto) 02/26/20 02/26/20 02/26/20 15:58 17:00 23:43 WBC RBC Hgb Hct MCV MCH RDW Plt Count Lymph % (Auto) Lymph # (Auto) [place] # (Auto) Seg Neutrophils % Seg Neuts % (Manual) Lymphocytes % (Manual) Monocytes % (Manual) Basophils % (Manual) Seg Neutrophils # Seg Neutrophils # Man Lymphocytes # (Manual) Monocytes # (Manual) Eosinophils # (Manual) Basophils # (Manual) PT INR D-Dimer ABG pH 7.502 H POC ABG pCO2 POC ABG pO2 213.6 H ABG pO2 ABG HCO3 ABG O2 Saturation ABG Base Excess ABG Hemoglobin ABG Oxyhemoglobin 99.2 H ABG Potassium 2.9 L ABG Glucose 160 H Oxyhemoglobin Carboxyhemoglobin 0.4 L Sodium Potassium Chloride Carbon Dioxide BUN Creatinine Glucose POC Glucose 189 H 120 H Calcium Ferritin Total Bilirubin Alkaline Phosphatase Lactate Dehydrogenase Total Creatine Kinase CK-MB (CK-2) Rel Index Troponin T C-Reactive Protein Total Protein Albumin Prealbumin LDL Cholesterol Direct Arterial Blood Glucose 160 H Arterial Blood Ionized Calcium 4.5 L Urine WBC (Auto) 02/27/20 02/27/20 02/27/20 05:00 07:04 17:45 WBC RBC Hgb Hct MCV MCH RDW Plt Count Lymph % (Auto) Lymph # (Auto) [place] # (Auto) Seg Neutrophils % Seg Neuts % (Manual) Lymphocytes % (Manual) Monocytes % (Manual) Basophils % (Manual) Seg Neutrophils # Seg Neutrophils # Man Lymphocytes # (Manual) Monocytes # (Manual) Eosinophils # (Manual) Basophils # (Manual) PT INR D-Dimer ABG pH 7.524 H POC ABG pCO2 POC ABG pO2 ABG pO2 ABG HCO3 ABG O2 Saturation ABG Base Excess ABG Hemoglobin ABG Oxyhemoglobin ABG Potassium 3.0 L ABG Glucose 143 H Oxyhemoglobin Carboxyhemoglobin Sodium Potassium Chloride Carbon Dioxide BUN Creatinine Glucose POC Glucose 154 H 175 H Calcium Ferritin Total Bilirubin Alkaline Phosphatase Lactate Dehydrogenase Total Creatine Kinase CK-MB (CK-2) Rel Index Troponin T C-Reactive Protein Total Protein Albumin Prealbumin LDL Cholesterol Direct Arterial Blood Glucose 143 H Arterial Blood Ionized Calcium Urine WBC (Auto) 02/27/20 02/28/20 02/28/20 Unknown 00:21 04:15 WBC 18.7 H RBC Hgb Hct MCV MCH RDW Plt Count Lymph % (Auto) 8.7 L Lymph # (Auto) [place] # (Auto) 1.2 H Seg Neutrophils % 84.6 H Seg Neuts % (Manual) Lymphocytes % (Manual) Monocytes % (Manual) Basophils % (Manual) Seg Neutrophils # 15.9 H Seg Neutrophils # Man Lymphocytes # (Manual) Monocytes # (Manual) Eosinophils # (Manual) Basophils # (Manual) PT INR D-Dimer ABG pH POC ABG pCO2 POC ABG pO2 ABG pO2 ABG HCO3 ABG O2 Saturation ABG Base Excess ABG Hemoglobin ABG Oxyhemoglobin ABG Potassium ABG Glucose Oxyhemoglobin Carboxyhemoglobin Sodium Potassium 2.9 L* Chloride Carbon Dioxide 33 H D BUN Creatinine < 0.2 L Glucose 157 H POC Glucose 134 H Calcium Ferritin Total Bilirubin Alkaline Phosphatase Lactate Dehydrogenase Total Creatine Kinase CK-MB (CK-2) Rel Index Troponin T C-Reactive Protein Total Protein Albumin Prealbumin LDL Cholesterol Direct Arterial Blood Glucose Arterial Blood Ionized Calcium Urine WBC (Auto) 02/28/20 02/28/20 02/28/20 04:15 05:16 05:39 WBC RBC Hgb Hct MCV MCH RDW Plt Count Lymph % (Auto) Lymph # (Auto) [place] # (Auto) Seg Neutrophils % Seg Neuts % (Manual) Lymphocytes % (Manual) Monocytes % (Manual) Basophils % (Manual) Seg Neutrophils # Seg Neutrophils # Man Lymphocytes # (Manual) Monocytes # (Manual) Eosinophils # (Manual) Basophils # (Manual) PT INR D-Dimer ABG pH POC ABG pCO2 POC ABG pO2 ABG pO2 142.9 H ABG HCO3 34.1 H ABG O2 Saturation ABG Base Excess 8.3 H ABG Hemoglobin ABG Oxyhemoglobin ABG Potassium ABG Glucose Oxyhemoglobin Carboxyhemoglobin Sodium 151 H Potassium Chloride Carbon Dioxide 32 H BUN Creatinine 0.2 L Glucose 167 H POC Glucose 138 H Calcium Ferritin Total Bilirubin Alkaline Phosphatase Lactate Dehydrogenase Total Creatine Kinase CK-MB (CK-2) Rel Index Troponin T C-Reactive Protein Total Protein Albumin Prealbumin LDL Cholesterol Direct Arterial Blood Glucose Arterial Blood Ionized Calcium Urine WBC (Auto) 02/28/20 02/28/20 02/28/20 11:05 11:33 12:54 WBC RBC Hgb Hct MCV MCH RDW Plt Count Lymph % (Auto) Lymph # (Auto) [place] # (Auto) Seg Neutrophils % Seg Neuts % (Manual) Lymphocytes % (Manual) Monocytes % (Manual) Basophils % (Manual) Seg Neutrophils # Seg Neutrophils # Man Lymphocytes # (Manual) Monocytes # (Manual) Eosinophils # (Manual) Basophils # (Manual) PT INR D-Dimer ABG pH POC ABG pCO2 POC ABG pO2 ABG pO2 ABG HCO3 ABG O2 Saturation ABG Base Excess ABG Hemoglobin ABG Oxyhemoglobin ABG Potassium ABG Glucose Oxyhemoglobin Carboxyhemoglobin Sodium Potassium Chloride Carbon Dioxide BUN Creatinine Glucose POC Glucose 160 H Calcium Ferritin Total Bilirubin Alkaline Phosphatase Lactate Dehydrogenase Total Creatine Kinase CK-MB (CK-2) Rel Index Troponin T C-Reactive Protein 4.70 H Total Protein Albumin Prealbumin 0.090 L LDL Cholesterol Direct Arterial Blood Glucose Arterial Blood Ionized Calcium Urine WBC (Auto) 02/28/20 02/29/20 02/29/20 17:34 00:44 04:05 WBC 19.6 H RBC Hgb Hct MCV MCH 27 L RDW 15.4 H Plt Count Lymph % (Auto) Lymph # (Auto) [place] # (Auto) Seg Neutrophils % Seg Neuts % (Manual) 86.0 H Lymphocytes % (Manual) 7.0 L Monocytes % (Manual) Basophils % (Manual) Seg Neutrophils # Seg Neutrophils # Man 16.9 H Lymphocytes # (Manual) Monocytes # (Manual) 1.2 H Eosinophils # (Manual) Basophils # (Manual) PT INR D-Dimer ABG pH POC ABG pCO2 POC ABG pO2 ABG pO2 ABG HCO3 ABG O2 Saturation ABG Base Excess ABG Hemoglobin ABG Oxyhemoglobin ABG Potassium ABG Glucose Oxyhemoglobin Carboxyhemoglobin Sodium Potassium Chloride Carbon Dioxide BUN Creatinine Glucose POC Glucose 136 H 156 H Calcium Ferritin Total Bilirubin Alkaline Phosphatase Lactate Dehydrogenase Total Creatine Kinase CK-MB (CK-2) Rel Index Troponin T C-Reactive Protein Total Protein Albumin Prealbumin LDL Cholesterol Direct Arterial Blood Glucose Arterial Blood Ionized Calcium Urine WBC (Auto) 02/29/20 02/29/20 02/29/20 04:05 05:14 05:33 WBC RBC Hgb Hct MCV MCH RDW Plt Count Lymph % (Auto) Lymph # (Auto) [place] # (Auto) Seg Neutrophils % Seg Neuts % (Manual) Lymphocytes % (Manual) Monocytes % (Manual) Basophils % (Manual) Seg Neutrophils # Seg Neutrophils # Man Lymphocytes # (Manual) Monocytes # (Manual) Eosinophils # (Manual) Basophils # (Manual) PT INR D-Dimer ABG pH POC ABG pCO2 54.3 H POC ABG pO2 124.8 H ABG pO2 ABG HCO3 ABG O2 Saturation ABG Base Excess ABG Hemoglobin ABG Oxyhemoglobin ABG Potassium ABG Glucose 185 H Oxyhemoglobin Carboxyhemoglobin Sodium 148 H Potassium Chloride Carbon Dioxide 33 H BUN Creatinine < 0.2 L Glucose 173 H POC Glucose 152 H Calcium Ferritin Total Bilirubin Alkaline Phosphatase Lactate Dehydrogenase Total Creatine Kinase CK-MB (CK-2) Rel Index Troponin T C-Reactive Protein Total Protein Albumin Prealbumin LDL Cholesterol Direct Arterial Blood Glucose 185 H Arterial Blood Ionized Calcium Urine WBC (Auto) 03/01/20 03/01/20 03/01/20 00:00 03:45 04:33 WBC 23.1 H RBC Hgb Hct MCV MCH 27 L RDW 15.3 H Plt Count Lymph % (Auto) Lymph # (Auto) [place] # (Auto) Seg Neutrophils % Seg Neuts % (Manual) 92.0 H Lymphocytes % (Manual) 6.0 L Monocytes % (Manual) Basophils % (Manual) Seg Neutrophils # Seg Neutrophils # Man 21.3 H Lymphocytes # (Manual) Monocytes # (Manual) Eosinophils # (Manual) 0.5 H Basophils # (Manual) PT INR D-Dimer ABG pH 7.492 H POC ABG pCO2 POC ABG pO2 ABG pO2 157.1 H ABG HCO3 32.3 H ABG O2 Saturation ABG Base Excess 8.1 H ABG Hemoglobin 13.2 L ABG Oxyhemoglobin ABG Potassium ABG Glucose Oxyhemoglobin Carboxyhemoglobin Sodium Potassium Chloride Carbon Dioxide BUN Creatinine Glucose POC Glucose 109 H Calcium Ferritin Total Bilirubin Alkaline Phosphatase Lactate Dehydrogenase Total Creatine Kinase CK-MB (CK-2) Rel Index Troponin T C-Reactive Protein Total Protein Albumin Prealbumin LDL Cholesterol Direct Arterial Blood Glucose Arterial Blood Ionized Calcium Urine WBC (Auto) 03/01/20 03/01/20 03/01/20 04:33 05:29 12:32 WBC RBC Hgb Hct MCV MCH RDW Plt Count Lymph % (Auto) Lymph # (Auto) [place] # (Auto) Seg Neutrophils % Seg Neuts % (Manual) Lymphocytes % (Manual) Monocytes % (Manual) Basophils % (Manual) Seg Neutrophils # Seg Neutrophils # Man Lymphocytes # (Manual) Monocytes # (Manual) Eosinophils # (Manual) Basophils # (Manual) PT INR D-Dimer ABG pH POC ABG pCO2 POC ABG pO2 ABG pO2 ABG HCO3 ABG O2 Saturation ABG Base Excess ABG Hemoglobin ABG Oxyhemoglobin ABG Potassium ABG Glucose Oxyhemoglobin Carboxyhemoglobin Sodium 146 H Potassium Chloride Carbon Dioxide 32 H BUN Creatinine < 0.2 L Glucose 120 H POC Glucose 120 H 128 H Calcium Ferritin Total Bilirubin Alkaline Phosphatase Lactate Dehydrogenase Total Creatine Kinase CK-MB (CK-2) Rel Index Troponin T C-Reactive Protein Total Protein Albumin Prealbumin LDL Cholesterol Direct Arterial Blood Glucose Arterial Blood Ionized Calcium Urine WBC (Auto) 03/01/20 03/01/20 03/02/20 17:38 23:46 06:13 WBC RBC Hgb Hct MCV MCH RDW Plt Count Lymph % (Auto) Lymph # (Auto) [place] # (Auto) Seg Neutrophils % Seg Neuts % (Manual) Lymphocytes % (Manual) Monocytes % (Manual) Basophils % (Manual) Seg Neutrophils # Seg Neutrophils # Man Lymphocytes # (Manual) Monocytes # (Manual) Eosinophils # (Manual) Basophils # (Manual) PT INR D-Dimer ABG pH POC ABG pCO2 POC ABG pO2 ABG pO2 ABG HCO3 ABG O2 Saturation ABG Base Excess ABG Hemoglobin ABG Oxyhemoglobin ABG Potassium ABG Glucose Oxyhemoglobin Carboxyhemoglobin Sodium Potassium Chloride Carbon Dioxide BUN Creatinine Glucose POC Glucose 114 H 121 H 120 H Calcium Ferritin Total Bilirubin Alkaline Phosphatase Lactate Dehydrogenase Total Creatine Kinase CK-MB (CK-2) Rel Index Troponin T C-Reactive Protein Total Protein Albumin Prealbumin LDL Cholesterol Direct Arterial Blood Glucose Arterial Blood Ionized Calcium Urine WBC (Auto) 03/02/20 03/02/20 03/03/20 09:47 09:47 10:21 WBC 23.6 H RBC Hgb Hct MCV MCH RDW 15.3 H Plt Count 494 H Lymph % (Auto) Lymph # (Auto) [place] # (Auto) Seg Neutrophils % Seg Neuts % (Manual) 85.0 H Lymphocytes % (Manual) 6.0 L Monocytes % (Manual) Basophils % (Manual) Seg Neutrophils # Seg Neutrophils # Man 20.1 H Lymphocytes # (Manual) Monocytes # (Manual) 1.7 H Eosinophils # (Manual) Basophils # (Manual) PT INR D-Dimer ABG pH POC ABG pCO2 POC ABG pO2 ABG pO2 ABG HCO3 ABG O2 Saturation ABG Base Excess ABG Hemoglobin ABG Oxyhemoglobin ABG Potassium 3.3 L ABG Glucose 158 H Oxyhemoglobin Carboxyhemoglobin Sodium Potassium Chloride Carbon Dioxide BUN Creatinine < 0.2 L Glucose 177 H POC Glucose Calcium Ferritin Total Bilirubin Alkaline Phosphatase Lactate Dehydrogenase Total Creatine Kinase CK-MB (CK-2) Rel Index Troponin T C-Reactive Protein Total Protein Albumin Prealbumin LDL Cholesterol Direct Arterial Blood Glucose 158 H Arterial Blood Ionized Calcium Urine WBC (Auto) 03/03/20 03/04/20 03/04/20 21:30 00:00 12:23 WBC RBC Hgb Hct MCV MCH RDW Plt Count Lymph % (Auto) Lymph # (Auto) [place] # (Auto) Seg Neutrophils % Seg Neuts % (Manual) Lymphocytes % (Manual) Monocytes % (Manual) Basophils % (Manual) Seg Neutrophils # Seg Neutrophils # Man Lymphocytes # (Manual) Monocytes # (Manual) Eosinophils # (Manual) Basophils # (Manual) PT INR D-Dimer ABG pH 7.328 L POC ABG pCO2 POC ABG pO2 ABG pO2 68.4 L ABG HCO3 35.0 H ABG O2 Saturation 93.9 L ABG Base Excess 6.8 H ABG Hemoglobin 12.7 L ABG Oxyhemoglobin ABG Potassium ABG Glucose Oxyhemoglobin 91.9 L Carboxyhemoglobin Sodium Potassium Chloride Carbon Dioxide BUN Creatinine Glucose POC Glucose 187 H 163 H Calcium Ferritin Total Bilirubin Alkaline Phosphatase Lactate Dehydrogenase Total Creatine Kinase CK-MB (CK-2) Rel Index Troponin T C-Reactive Protein Total Protein Albumin Prealbumin LDL Cholesterol Direct Arterial Blood Glucose Arterial Blood Ionized Calcium Urine WBC (Auto) 03/04/20 03/04/20 03/05/20 18:15 21:30 06:02 WBC RBC Hgb Hct MCV MCH RDW Plt Count Lymph % (Auto) Lymph # (Auto) [place] # (Auto) Seg Neutrophils % Seg Neuts % (Manual) Lymphocytes % (Manual) Monocytes % (Manual) Basophils % (Manual) Seg Neutrophils # Seg Neutrophils # Man Lymphocytes # (Manual) Monocytes # (Manual) Eosinophils # (Manual) Basophils # (Manual) PT INR D-Dimer ABG pH 7.297 L POC ABG pCO2 POC ABG pO2 ABG pO2 ABG HCO3 41.0 H ABG O2 Saturation ABG Base Excess 11.0 H ABG Hemoglobin 13.1 L ABG Oxyhemoglobin ABG Potassium ABG Glucose Oxyhemoglobin 94.5 L Carboxyhemoglobin Sodium Potassium Chloride Carbon Dioxide BUN Creatinine Glucose POC Glucose 192 H 127 H Calcium Ferritin Total Bilirubin Alkaline Phosphatase Lactate Dehydrogenase Total Creatine Kinase CK-MB (CK-2) Rel Index Troponin T C-Reactive Protein Total Protein Albumin Prealbumin LDL Cholesterol Direct Arterial Blood Glucose Arterial Blood Ionized Calcium Urine WBC (Auto) 03/05/20 03/05/20 03/06/20 12:09 16:42 00:24 WBC RBC Hgb Hct MCV MCH RDW Plt Count Lymph % (Auto) Lymph # (Auto) [place] # (Auto) Seg Neutrophils % Seg Neuts % (Manual) Lymphocytes % (Manual) Monocytes % (Manual) Basophils % (Manual) Seg Neutrophils # Seg Neutrophils # Man Lymphocytes # (Manual) Monocytes # (Manual) Eosinophils # (Manual) Basophils # (Manual) PT INR D-Dimer ABG pH POC ABG pCO2 POC ABG pO2 ABG pO2 ABG HCO3 ABG O2 Saturation ABG Base Excess ABG Hemoglobin ABG Oxyhemoglobin ABG Potassium ABG Glucose Oxyhemoglobin Carboxyhemoglobin Sodium Potassium Chloride Carbon Dioxide BUN Creatinine Glucose POC Glucose 147 H 114 H 134 H Calcium Ferritin Total Bilirubin Alkaline Phosphatase Lactate Dehydrogenase Total Creatine Kinase CK-MB (CK-2) Rel Index Troponin T C-Reactive Protein Total Protein Albumin Prealbumin LDL Cholesterol Direct Arterial Blood Glucose Arterial Blood Ionized Calcium Urine WBC (Auto) 03/06/20 03/06/20 03/06/20 04:34 05:53 06:08 WBC 25.4 H RBC Hgb 10.5 L Hct 32.7 L MCV MCH 27 L RDW 15.3 H Plt Count 634 H Lymph % (Auto) Lymph # (Auto) [place] # (Auto) Seg Neutrophils % Seg Neuts % (Manual) 88.0 H Lymphocytes % (Manual) 2.0 L Monocytes % (Manual) 8.0 H Basophils % (Manual) Seg Neutrophils # Seg Neutrophils # Man 22.4 H Lymphocytes # (Manual) 0.5 L Monocytes # (Manual) 2.0 H Eosinophils # (Manual) Basophils # (Manual) PT INR D-Dimer ABG pH POC ABG pCO2 POC ABG pO2 ABG pO2 ABG HCO3 37.9 H ABG O2 Saturation ABG Base Excess 11.4 H ABG Hemoglobin 10.6 L ABG Oxyhemoglobin ABG Potassium ABG Glucose Oxyhemoglobin 94.7 L Carboxyhemoglobin Sodium Potassium Chloride Carbon Dioxide BUN Creatinine Glucose POC Glucose 135 H Calcium Ferritin Total Bilirubin Alkaline Phosphatase Lactate Dehydrogenase Total Creatine Kinase CK-MB (CK-2) Rel Index Troponin T C-Reactive Protein Total Protein Albumin Prealbumin LDL Cholesterol Direct Arterial Blood Glucose Arterial Blood Ionized Calcium Urine WBC (Auto) 03/06/20 03/06/20 03/06/20 06:08 12:19 19:10 WBC RBC Hgb Hct MCV MCH RDW Plt Count Lymph % (Auto) Lymph # (Auto) [place] # (Auto) Seg Neutrophils % Seg Neuts % (Manual) Lymphocytes % (Manual) Monocytes % (Manual) Basophils % (Manual) Seg Neutrophils # Seg Neutrophils # Man Lymphocytes # (Manual) Monocytes # (Manual) Eosinophils # (Manual) Basophils # (Manual) PT INR D-Dimer ABG pH POC ABG pCO2 POC ABG pO2 ABG pO2 ABG HCO3 ABG O2 Saturation ABG Base Excess ABG Hemoglobin ABG Oxyhemoglobin ABG Potassium ABG Glucose Oxyhemoglobin Carboxyhemoglobin Sodium 150 H D Potassium Chloride Carbon Dioxide 39 H D BUN 23 H Creatinine < 0.2 L Glucose 144 H POC Glucose 169 H 152 H Calcium Ferritin Total Bilirubin Alkaline Phosphatase Lactate Dehydrogenase Total Creatine Kinase CK-MB (CK-2) Rel Index Troponin T C-Reactive Protein Total Protein Albumin 3.3 L Prealbumin LDL Cholesterol Direct Arterial Blood Glucose Arterial Blood Ionized Calcium Urine WBC (Auto) 03/06/20 03/07/20 03/07/20 23:58 04:25 04:25 WBC 22.1 H RBC Hgb 10.9 L Hct 32.9 L MCV MCH RDW 15.5 H Plt Count 739 H Lymph % (Auto) 7.8 L Lymph # (Auto) [place] # (Auto) 1.3 H Seg Neutrophils % 85.5 H Seg Neuts % (Manual) Lymphocytes % (Manual) Monocytes % (Manual) Basophils % (Manual) Seg Neutrophils # 18.9 H Seg Neutrophils # Man Lymphocytes # (Manual) Monocytes # (Manual) Eosinophils # (Manual) Basophils # (Manual) PT INR D-Dimer ABG pH POC ABG pCO2 POC ABG pO2 ABG pO2 ABG HCO3 ABG O2 Saturation ABG Base Excess ABG Hemoglobin ABG Oxyhemoglobin ABG Potassium ABG Glucose Oxyhemoglobin Carboxyhemoglobin Sodium 146 H Potassium Chloride Carbon Dioxide 37 H BUN Creatinine < 0.2 L Glucose 118 H POC Glucose 111 H Calcium Ferritin Total Bilirubin Alkaline Phosphatase Lactate Dehydrogenase Total Creatine Kinase CK-MB (CK-2) Rel Index Troponin T C-Reactive Protein Total Protein Albumin 3.7 L Prealbumin LDL Cholesterol Direct Arterial Blood Glucose Arterial Blood Ionized Calcium Urine WBC (Auto) 03/07/20 03/07/20 03/07/20 05:20 17:45 23:32 WBC RBC Hgb Hct MCV MCH RDW Plt Count Lymph % (Auto) Lymph # (Auto) [place] # (Auto) Seg Neutrophils % Seg Neuts % (Manual) Lymphocytes % (Manual) Monocytes % (Manual) Basophils % (Manual) Seg Neutrophils # Seg Neutrophils # Man Lymphocytes # (Manual) Monocytes # (Manual) Eosinophils # (Manual) Basophils # (Manual) PT INR D-Dimer ABG pH POC ABG pCO2 POC ABG pO2 ABG pO2 ABG HCO3 ABG O2 Saturation ABG Base Excess ABG Hemoglobin ABG Oxyhemoglobin ABG Potassium ABG Glucose Oxyhemoglobin Carboxyhemoglobin Sodium Potassium Chloride Carbon Dioxide BUN Creatinine Glucose POC Glucose 113 H 124 H 210 H Calcium Ferritin Total Bilirubin Alkaline Phosphatase Lactate Dehydrogenase Total Creatine Kinase CK-MB (CK-2) Rel Index Troponin T C-Reactive Protein Total Protein Albumin Prealbumin LDL Cholesterol Direct Arterial Blood Glucose Arterial Blood Ionized Calcium Urine WBC (Auto) 03/08/20 03/08/20 03/08/20 05:35 06:43 06:43 WBC 28.9 H RBC 3.53 L Hgb 9.7 L Hct 30.3 L MCV MCH RDW 15.6 H Plt Count 578 H Lymph % (Auto) Lymph # (Auto) [place] # (Auto) Seg Neutrophils % Seg Neuts % (Manual) 93.0 H Lymphocytes % (Manual) 4.0 L Monocytes % (Manual) Basophils % (Manual) Seg Neutrophils # Seg Neutrophils # Man 26.9 H Lymphocytes # (Manual) Monocytes # (Manual) Eosinophils # (Manual) Basophils # (Manual) PT INR D-Dimer ABG pH POC ABG pCO2 POC ABG pO2 ABG pO2 ABG HCO3 ABG O2 Saturation ABG Base Excess ABG Hemoglobin ABG Oxyhemoglobin ABG Potassium ABG Glucose Oxyhemoglobin Carboxyhemoglobin Sodium 146 H Potassium Chloride Carbon Dioxide 35 H BUN 34 H Creatinine 0.3 L D Glucose 125 H POC Glucose 147 H Calcium Ferritin Total Bilirubin Alkaline Phosphatase Lactate Dehydrogenase Total Creatine Kinase CK-MB (CK-2) Rel Index Troponin T C-Reactive Protein Total Protein 5.9 L Albumin 3.2 L Prealbumin LDL Cholesterol Direct Arterial Blood Glucose Arterial Blood Ionized Calcium Urine WBC (Auto) 03/08/20 03/08/20 03/08/20 08:57 11:14 12:34 WBC RBC Hgb Hct MCV MCH RDW Plt Count Lymph % (Auto) Lymph # (Auto) [place] # (Auto) Seg Neutrophils % Seg Neuts % (Manual) Lymphocytes % (Manual) Monocytes % (Manual) Basophils % (Manual) Seg Neutrophils # Seg Neutrophils # Man Lymphocytes # (Manual) Monocytes # (Manual) Eosinophils # (Manual) Basophils # (Manual) PT INR D-Dimer ABG pH POC ABG pCO2 63.1 H POC ABG pO2 ABG pO2 ABG HCO3 ABG O2 Saturation ABG Base Excess ABG Hemoglobin 10.9 L ABG Oxyhemoglobin ABG Potassium ABG Glucose 176 H Oxyhemoglobin Carboxyhemoglobin Sodium Potassium Chloride Carbon Dioxide BUN Creatinine Glucose POC Glucose 171 H Calcium Ferritin Total Bilirubin Alkaline Phosphatase Lactate Dehydrogenase Total Creatine Kinase CK-MB (CK-2) Rel Index Troponin T C-Reactive Protein Total Protein Albumin Prealbumin LDL Cholesterol Direct Arterial Blood Glucose 176 H Arterial Blood Ionized Calcium 4.5 L Urine WBC (Auto) 10.0 H 03/08/20 03/08/20 03/09/20 18:02 23:43 05:49 WBC RBC Hgb Hct MCV MCH RDW Plt Count Lymph % (Auto) Lymph # (Auto) [place] # (Auto) Seg Neutrophils % Seg Neuts % (Manual) Lymphocytes % (Manual) Monocytes % (Manual) Basophils % (Manual) Seg Neutrophils # Seg Neutrophils # Man Lymphocytes # (Manual) Monocytes # (Manual) Eosinophils # (Manual) Basophils # (Manual) PT INR D-Dimer ABG pH POC ABG pCO2 POC ABG pO2 ABG pO2 ABG HCO3 ABG O2 Saturation ABG Base Excess ABG Hemoglobin ABG Oxyhemoglobin ABG Potassium ABG Glucose Oxyhemoglobin Carboxyhemoglobin Sodium Potassium Chloride Carbon Dioxide BUN Creatinine Glucose POC Glucose 157 H 134 H 163 H Calcium Ferritin Total Bilirubin Alkaline Phosphatase Lactate Dehydrogenase Total Creatine Kinase CK-MB (CK-2) Rel Index Troponin T C-Reactive Protein Total Protein Albumin Prealbumin LDL Cholesterol Direct Arterial Blood Glucose Arterial Blood Ionized Calcium Urine WBC (Auto) 03/09/20 03/09/20 03/09/20 08:35 08:35 12:11 WBC 23.4 H RBC 3.36 L Hgb 9.3 L Hct 28.8 L MCV MCH RDW 15.9 H Plt Count 521 H Lymph % (Auto) Lymph # (Auto) [place] # (Auto) Seg Neutrophils % Seg Neuts % (Manual) 87.0 H Lymphocytes % (Manual) 4.0 L Monocytes % (Manual) 9.0 H Basophils % (Manual) Seg Neutrophils # Seg Neutrophils # Man 20.4 H Lymphocytes # (Manual) 0.9 L Monocytes # (Manual) 2.1 H Eosinophils # (Manual) Basophils # (Manual) PT INR D-Dimer ABG pH POC ABG pCO2 POC ABG pO2 ABG pO2 ABG HCO3 ABG O2 Saturation ABG Base Excess ABG Hemoglobin ABG Oxyhemoglobin ABG Potassium ABG Glucose Oxyhemoglobin Carboxyhemoglobin Sodium 147 H Potassium Chloride Carbon Dioxide 37 H BUN 63 H Creatinine Glucose 154 H POC Glucose 128 H Calcium Ferritin Total Bilirubin Alkaline Phosphatase Lactate Dehydrogenase Total Creatine Kinase CK-MB (CK-2) Rel Index Troponin T C-Reactive Protein Total Protein Albumin Prealbumin LDL Cholesterol Direct Arterial Blood Glucose Arterial Blood Ionized Calcium Urine WBC (Auto) 03/09/20 03/10/20 03/10/20 17:51 00:25 05:41 WBC RBC Hgb Hct MCV MCH RDW Plt Count Lymph % (Auto) Lymph # (Auto) [place] # (Auto) Seg Neutrophils % Seg Neuts % (Manual) Lymphocytes % (Manual) Monocytes % (Manual) Basophils % (Manual) Seg Neutrophils # Seg Neutrophils # Man Lymphocytes # (Manual) Monocytes # (Manual) Eosinophils # (Manual) Basophils # (Manual) PT INR D-Dimer ABG pH POC ABG pCO2 POC ABG pO2 ABG pO2 ABG HCO3 ABG O2 Saturation ABG Base Excess ABG Hemoglobin ABG Oxyhemoglobin ABG Potassium ABG Glucose Oxyhemoglobin Carboxyhemoglobin Sodium Potassium Chloride Carbon Dioxide BUN Creatinine Glucose POC Glucose 127 H 128 H 153 H Calcium Ferritin Total Bilirubin Alkaline Phosphatase Lactate Dehydrogenase Total Creatine Kinase CK-MB (CK-2) Rel Index Troponin T C-Reactive Protein Total Protein Albumin Prealbumin LDL Cholesterol Direct Arterial Blood Glucose Arterial Blood Ionized Calcium Urine WBC (Auto) 03/10/20 03/10/20 03/10/20 06:14 06:14 12:02 WBC 18.3 H RBC 3.45 L Hgb 9.5 L Hct 29.5 L MCV MCH RDW 16.1 H Plt Count 494 H Lymph % (Auto) Lymph # (Auto) [place] # (Auto) Seg Neutrophils % Seg Neuts % (Manual) 95.0 H Lymphocytes % (Manual) 1.0 L Monocytes % (Manual) Basophils % (Manual) Seg Neutrophils # Seg Neutrophils # Man 17.4 H Lymphocytes # (Manual) 0.2 L Monocytes # (Manual) Eosinophils # (Manual) Basophils # (Manual) PT INR D-Dimer ABG pH POC ABG pCO2 POC ABG pO2 ABG pO2 ABG HCO3 ABG O2 Saturation ABG Base Excess ABG Hemoglobin ABG Oxyhemoglobin ABG Potassium ABG Glucose Oxyhemoglobin Carboxyhemoglobin Sodium 149 H Potassium Chloride Carbon Dioxide 35 H BUN 34 H Creatinine 0.2 L D Glucose 177 H POC Glucose 151 H Calcium Ferritin Total Bilirubin Alkaline Phosphatase Lactate Dehydrogenase Total Creatine Kinase CK-MB (CK-2) Rel Index Troponin T C-Reactive Protein Total Protein Albumin Prealbumin LDL Cholesterol Direct Arterial Blood Glucose Arterial Blood Ionized Calcium Urine WBC (Auto) 03/10/20 03/10/20 03/11/20 17:41 23:53 05:02 WBC RBC Hgb Hct MCV MCH RDW Plt Count Lymph % (Auto) Lymph # (Auto) [place] # (Auto) Seg Neutrophils % Seg Neuts % (Manual) Lymphocytes % (Manual) Monocytes % (Manual) Basophils % (Manual) Seg Neutrophils # Seg Neutrophils # Man Lymphocytes # (Manual) Monocytes # (Manual) Eosinophils # (Manual) Basophils # (Manual) PT INR D-Dimer ABG pH POC ABG pCO2 POC ABG pO2 ABG pO2 ABG HCO3 ABG O2 Saturation ABG Base Excess ABG Hemoglobin ABG Oxyhemoglobin ABG Potassium ABG Glucose Oxyhemoglobin Carboxyhemoglobin Sodium Potassium Chloride Carbon Dioxide BUN Creatinine Glucose POC Glucose 168 H 142 H 146 H Calcium Ferritin Total Bilirubin Alkaline Phosphatase Lactate Dehydrogenase Total Creatine Kinase CK-MB (CK-2) Rel Index Troponin T C-Reactive Protein Total Protein Albumin Prealbumin LDL Cholesterol Direct Arterial Blood Glucose Arterial Blood Ionized Calcium Urine WBC (Auto) 03/11/20 03/11/20 03/11/20 11:30 14:01 14:01 WBC 19.7 H RBC 3.04 L Hgb 8.7 L Hct 25.8 L MCV MCH RDW 15.6 H Plt Count Lymph % (Auto) Lymph # (Auto) [place] # (Auto) Seg Neutrophils % Seg Neuts % (Manual) Lymphocytes % (Manual) Monocytes % (Manual) Basophils % (Manual) Seg Neutrophils # Seg Neutrophils # Man Lymphocytes # (Manual) Monocytes # (Manual) Eosinophils # (Manual) Basophils # (Manual) PT INR D-Dimer ABG pH POC ABG pCO2 POC ABG pO2 ABG pO2 ABG HCO3 ABG O2 Saturation ABG Base Excess ABG Hemoglobin ABG Oxyhemoglobin ABG Potassium ABG Glucose Oxyhemoglobin Carboxyhemoglobin Sodium 151 H Potassium Chloride Carbon Dioxide 37 H BUN Creatinine < 0.2 L Glucose 171 H POC Glucose 248 H Calcium Ferritin Total Bilirubin Alkaline Phosphatase Lactate Dehydrogenase Total Creatine Kinase CK-MB (CK-2) Rel Index Troponin T C-Reactive Protein Total Protein Albumin Prealbumin LDL Cholesterol Direct Arterial Blood Glucose Arterial Blood Ionized Calcium Urine WBC (Auto) 03/11/20 03/11/20 03/12/20 17:09 23:52 04:39 WBC 19.9 H RBC 3.16 L Hgb 8.9 L Hct 27.5 L MCV MCH RDW 15.7 H Plt Count Lymph % (Auto) 6.8 L Lymph # (Auto) [place] # (Auto) 1.2 H Seg Neutrophils % 86.0 H Seg Neuts % (Manual) Lymphocytes % (Manual) Monocytes % (Manual) Basophils % (Manual) Seg Neutrophils # 17.1 H Seg Neutrophils # Man Lymphocytes # (Manual) Monocytes # (Manual) Eosinophils # (Manual) Basophils # (Manual) PT INR D-Dimer ABG pH POC ABG pCO2 POC ABG pO2 ABG pO2 ABG HCO3 ABG O2 Saturation ABG Base Excess ABG Hemoglobin ABG Oxyhemoglobin ABG Potassium ABG Glucose Oxyhemoglobin Carboxyhemoglobin Sodium Potassium Chloride Carbon Dioxide BUN Creatinine Glucose POC Glucose 124 H 131 H Calcium Ferritin Total Bilirubin Alkaline Phosphatase Lactate Dehydrogenase Total Creatine Kinase CK-MB (CK-2) Rel Index Troponin T C-Reactive Protein Total Protein Albumin Prealbumin LDL Cholesterol Direct Arterial Blood Glucose Arterial Blood Ionized Calcium Urine WBC (Auto) 03/12/20 03/12/20 03/12/20 04:39 05:28 11:34 WBC RBC Hgb Hct MCV MCH RDW Plt Count Lymph % (Auto) Lymph # (Auto) [place] # (Auto) Seg Neutrophils % Seg Neuts % (Manual) Lymphocytes % (Manual) Monocytes % (Manual) Basophils % (Manual) Seg Neutrophils # Seg Neutrophils # Man Lymphocytes # (Manual) Monocytes # (Manual) Eosinophils # (Manual) Basophils # (Manual) PT INR D-Dimer ABG pH POC ABG pCO2 POC ABG pO2 ABG pO2 ABG HCO3 ABG O2 Saturation ABG Base Excess ABG Hemoglobin ABG Oxyhemoglobin ABG Potassium ABG Glucose Oxyhemoglobin Carboxyhemoglobin Sodium 147 H Potassium Chloride Carbon Dioxide 40 H BUN Creatinine < 0.2 L Glucose 175 H POC Glucose 167 H 144 H Calcium Ferritin Total Bilirubin Alkaline Phosphatase Lactate Dehydrogenase Total Creatine Kinase CK-MB (CK-2) Rel Index Troponin T C-Reactive Protein Total Protein Albumin Prealbumin LDL Cholesterol Direct Arterial Blood Glucose Arterial Blood Ionized Calcium Urine WBC (Auto) 03/12/20 03/12/20 03/13/20 17:32 23:57 05:57 WBC RBC Hgb Hct MCV MCH RDW Plt Count Lymph % (Auto) Lymph # (Auto) [place] # (Auto) Seg Neutrophils % Seg Neuts % (Manual) Lymphocytes % (Manual) Monocytes % (Manual) Basophils % (Manual) Seg Neutrophils # Seg Neutrophils # Man Lymphocytes # (Manual) Monocytes # (Manual) Eosinophils # (Manual) Basophils # (Manual) PT INR D-Dimer ABG pH POC ABG pCO2 POC ABG pO2 ABG pO2 ABG HCO3 ABG O2 Saturation ABG Base Excess ABG Hemoglobin ABG Oxyhemoglobin ABG Potassium ABG Glucose Oxyhemoglobin Carboxyhemoglobin Sodium Potassium Chloride Carbon Dioxide BUN Creatinine Glucose POC Glucose 141 H 137 H 161 H Calcium Ferritin Total Bilirubin Alkaline Phosphatase Lactate Dehydrogenase Total Creatine Kinase CK-MB (CK-2) Rel Index Troponin T C-Reactive Protein Total Protein Albumin Prealbumin LDL Cholesterol Direct Arterial Blood Glucose Arterial Blood Ionized Calcium Urine WBC (Auto) 03/13/20 03/13/20 03/13/20 12:28 14:14 18:39 WBC RBC Hgb Hct MCV MCH RDW Plt Count Lymph % (Auto) Lymph # (Auto) [place] # (Auto) Seg Neutrophils % Seg Neuts % (Manual) Lymphocytes % (Manual) Monocytes % (Manual) Basophils % (Manual) Seg Neutrophils # Seg Neutrophils # Man Lymphocytes # (Manual) Monocytes # (Manual) Eosinophils # (Manual) Basophils # (Manual) PT INR D-Dimer ABG pH POC ABG pCO2 POC ABG pO2 ABG pO2 ABG HCO3 ABG O2 Saturation ABG Base Excess ABG Hemoglobin ABG Oxyhemoglobin ABG Potassium ABG Glucose Oxyhemoglobin Carboxyhemoglobin Sodium Potassium Chloride Carbon Dioxide 39 H BUN Creatinine < 0.2 L Glucose 129 H POC Glucose 130 H 125 H Calcium Ferritin Total Bilirubin Alkaline Phosphatase Lactate Dehydrogenase Total Creatine Kinase CK-MB (CK-2) Rel Index Troponin T C-Reactive Protein Total Protein Albumin Prealbumin LDL Cholesterol Direct Arterial Blood Glucose Arterial Blood Ionized Calcium Urine WBC (Auto) 03/13/20 03/14/20 03/14/20 23:33 05:24 08:07 WBC 16.8 H RBC 2.81 L Hgb 7.9 L Hct 23.9 L MCV MCH RDW 15.9 H Plt Count Lymph % (Auto) Lymph # (Auto) [place] # (Auto) Seg Neutrophils % Seg Neuts % (Manual) 84.0 H Lymphocytes % (Manual) 10.0 L Monocytes % (Manual) Basophils % (Manual) Seg Neutrophils # Seg Neutrophils # Man 14.1 H Lymphocytes # (Manual) Monocytes # (Manual) Eosinophils # (Manual) Basophils # (Manual) PT INR D-Dimer ABG pH POC ABG pCO2 POC ABG pO2 ABG pO2 ABG HCO3 ABG O2 Saturation ABG Base Excess ABG Hemoglobin ABG Oxyhemoglobin ABG Potassium ABG Glucose Oxyhemoglobin Carboxyhemoglobin Sodium Potassium Chloride Carbon Dioxide BUN Creatinine Glucose POC Glucose 146 H 125 H Calcium Ferritin Total Bilirubin Alkaline Phosphatase Lactate Dehydrogenase Total Creatine Kinase CK-MB (CK-2) Rel Index Troponin T C-Reactive Protein Total Protein Albumin Prealbumin LDL Cholesterol Direct Arterial Blood Glucose Arterial Blood Ionized Calcium Urine WBC (Auto) 03/14/20 03/14/20 03/14/20 08:07 12:21 18:26 WBC RBC Hgb Hct MCV MCH RDW Plt Count Lymph % (Auto) Lymph # (Auto) [place] # (Auto) Seg Neutrophils % Seg Neuts % (Manual) Lymphocytes % (Manual) Monocytes % (Manual) Basophils % (Manual) Seg Neutrophils # Seg Neutrophils # Man Lymphocytes # (Manual) Monocytes # (Manual) Eosinophils # (Manual) Basophils # (Manual) PT INR D-Dimer ABG pH POC ABG pCO2 POC ABG pO2 ABG pO2 ABG HCO3 ABG O2 Saturation ABG Base Excess ABG Hemoglobin ABG Oxyhemoglobin ABG Potassium ABG Glucose Oxyhemoglobin Carboxyhemoglobin Sodium Potassium Chloride 97.0 L Carbon Dioxide 37 H BUN Creatinine < 0.2 L Glucose 129 H POC Glucose 109 H 142 H Calcium 8.3 L Ferritin Total Bilirubin Alkaline Phosphatase Lactate Dehydrogenase Total Creatine Kinase CK-MB (CK-2) Rel Index Troponin T C-Reactive Protein Total Protein Albumin Prealbumin LDL Cholesterol Direct Arterial Blood Glucose Arterial Blood Ionized Calcium Urine WBC (Auto) 03/14/20 03/15/20 03/15/20 23:57 05:46 08:06 WBC 19.7 H RBC 3.29 L Hgb 9.1 L Hct 28.0 L MCV MCH RDW 15.9 H Plt Count Lymph % (Auto) Lymph # (Auto) [place] # (Auto) Seg Neutrophils % Seg Neuts % (Manual) Lymphocytes % (Manual) Monocytes % (Manual) Basophils % (Manual) Seg Neutrophils # Seg Neutrophils # Man Lymphocytes # (Manual) Monocytes # (Manual) Eosinophils # (Manual) Basophils # (Manual) PT INR D-Dimer ABG pH POC ABG pCO2 POC ABG pO2 ABG pO2 ABG HCO3 ABG O2 Saturation ABG Base Excess ABG Hemoglobin ABG Oxyhemoglobin ABG Potassium ABG Glucose Oxyhemoglobin Carboxyhemoglobin Sodium Potassium Chloride Carbon Dioxide BUN Creatinine Glucose POC Glucose 157 H 118 H Calcium Ferritin Total Bilirubin Alkaline Phosphatase Lactate Dehydrogenase Total Creatine Kinase CK-MB (CK-2) Rel Index Troponin T C-Reactive Protein Total Protein Albumin Prealbumin LDL Cholesterol Direct Arterial Blood Glucose Arterial Blood Ionized Calcium Urine WBC (Auto) 03/15/20 03/15/20 03/15/20 08:06 12:44 18:09 WBC RBC Hgb Hct MCV MCH RDW Plt Count Lymph % (Auto) Lymph # (Auto) [place] # (Auto) Seg Neutrophils % Seg Neuts % (Manual) Lymphocytes % (Manual) Monocytes % (Manual) Basophils % (Manual) Seg Neutrophils # Seg Neutrophils # Man Lymphocytes # (Manual) Monocytes # (Manual) Eosinophils # (Manual) Basophils # (Manual) PT INR D-Dimer ABG pH POC ABG pCO2 POC ABG pO2 ABG pO2 ABG HCO3 ABG O2 Saturation ABG Base Excess ABG Hemoglobin ABG Oxyhemoglobin ABG Potassium ABG Glucose Oxyhemoglobin Carboxyhemoglobin Sodium 136 L Potassium Chloride 93.6 L Carbon Dioxide 37 H BUN Creatinine < 0.2 L Glucose 132 H POC Glucose 151 H 164 H Calcium Ferritin Total Bilirubin Alkaline Phosphatase Lactate Dehydrogenase Total Creatine Kinase CK-MB (CK-2) Rel Index Troponin T C-Reactive Protein Total Protein Albumin Prealbumin LDL Cholesterol Direct Arterial Blood Glucose Arterial Blood Ionized Calcium Urine WBC (Auto) 03/15/20 03/16/20 03/16/20 23:26 05:39 11:58 WBC RBC Hgb Hct MCV MCH RDW Plt Count Lymph % (Auto) Lymph # (Auto) [place] # (Auto) Seg Neutrophils % Seg Neuts % (Manual) Lymphocytes % (Manual) Monocytes % (Manual) Basophils % (Manual) Seg Neutrophils # Seg Neutrophils # Man Lymphocytes # (Manual) Monocytes # (Manual) Eosinophils # (Manual) Basophils # (Manual) PT INR D-Dimer ABG pH POC ABG pCO2 POC ABG pO2 ABG pO2 ABG HCO3 ABG O2 Saturation ABG Base Excess ABG Hemoglobin ABG Oxyhemoglobin ABG Potassium ABG Glucose Oxyhemoglobin Carboxyhemoglobin Sodium Potassium Chloride Carbon Dioxide BUN Creatinine Glucose POC Glucose 136 H 116 H 109 H Calcium Ferritin Total Bilirubin Alkaline Phosphatase Lactate Dehydrogenase Total Creatine Kinase CK-MB (CK-2) Rel Index Troponin T C-Reactive Protein Total Protein Albumin Prealbumin LDL Cholesterol Direct Arterial Blood Glucose Arterial Blood Ionized Calcium Urine WBC (Auto) 03/16/20 03/17/20 03/17/20 23:56 04:40 04:40 WBC 18.0 H RBC 3.33 L Hgb 9.5 L Hct 28.8 L MCV MCH RDW 16.4 H Plt Count 499 H Lymph % (Auto) Lymph # (Auto) [place] # (Auto) Seg Neutrophils % Seg Neuts % (Manual) 82.0 H Lymphocytes % (Manual) 8.0 L Monocytes % (Manual) Basophils % (Manual) Seg Neutrophils # Seg Neutrophils # Man 14.8 H Lymphocytes # (Manual) Monocytes # (Manual) 1.3 H Eosinophils # (Manual) Basophils # (Manual) 0.2 H PT INR D-Dimer ABG pH POC ABG pCO2 POC ABG pO2 ABG pO2 ABG HCO3 ABG O2 Saturation ABG Base Excess ABG Hemoglobin ABG Oxyhemoglobin ABG Potassium ABG Glucose Oxyhemoglobin Carboxyhemoglobin Sodium Potassium Chloride 97.7 L Carbon Dioxide 32 H BUN Creatinine < 0.2 L Glucose 114 H POC Glucose 131 H Calcium Ferritin Total Bilirubin Alkaline Phosphatase Lactate Dehydrogenase Total Creatine Kinase CK-MB (CK-2) Rel Index Troponin T C-Reactive Protein Total Protein Albumin Prealbumin LDL Cholesterol Direct Arterial Blood Glucose Arterial Blood Ionized Calcium Urine WBC (Auto) 03/18/20 03/18/20 03/18/20 00:21 05:21 11:55 WBC RBC Hgb Hct MCV MCH RDW Plt Count Lymph % (Auto) Lymph # (Auto) [place] # (Auto) Seg Neutrophils % Seg Neuts % (Manual) Lymphocytes % (Manual) Monocytes % (Manual) Basophils % (Manual) Seg Neutrophils # Seg Neutrophils # Man Lymphocytes # (Manual) Monocytes # (Manual) Eosinophils # (Manual) Basophils # (Manual) PT INR D-Dimer ABG pH POC ABG pCO2 POC ABG pO2 ABG pO2 ABG HCO3 ABG O2 Saturation ABG Base Excess ABG Hemoglobin ABG Oxyhemoglobin ABG Potassium ABG Glucose Oxyhemoglobin Carboxyhemoglobin Sodium Potassium Chloride Carbon Dioxide BUN Creatinine Glucose POC Glucose 124 H 138 H 119 H Calcium Ferritin Total Bilirubin Alkaline Phosphatase Lactate Dehydrogenase Total Creatine Kinase CK-MB (CK-2) Rel Index Troponin T C-Reactive Protein Total Protein Albumin Prealbumin LDL Cholesterol Direct Arterial Blood Glucose Arterial Blood Ionized Calcium Urine WBC (Auto) 03/18/20 03/18/20 03/19/20 17:03 23:58 05:24 WBC RBC Hgb Hct MCV MCH RDW Plt Count Lymph % (Auto) Lymph # (Auto) [place] # (Auto) Seg Neutrophils % Seg Neuts % (Manual) Lymphocytes % (Manual) Monocytes % (Manual) Basophils % (Manual) Seg Neutrophils # Seg Neutrophils # Man Lymphocytes # (Manual) Monocytes # (Manual) Eosinophils # (Manual) Basophils # (Manual) PT INR D-Dimer ABG pH POC ABG pCO2 POC ABG pO2 ABG pO2 ABG HCO3 ABG O2 Saturation ABG Base Excess ABG Hemoglobin ABG Oxyhemoglobin ABG Potassium ABG Glucose Oxyhemoglobin Carboxyhemoglobin Sodium Potassium Chloride Carbon Dioxide BUN Creatinine Glucose POC Glucose 128 H 128 H 115 H Calcium Ferritin Total Bilirubin Alkaline Phosphatase Lactate Dehydrogenase Total Creatine Kinase CK-MB (CK-2) Rel Index Troponin T C-Reactive Protein Total Protein Albumin Prealbumin LDL Cholesterol Direct Arterial Blood Glucose Arterial Blood Ionized Calcium Urine WBC (Auto) 03/19/20 03/19/20 03/19/20 08:05 08:05 11:56 WBC 16.8 H RBC 3.36 L Hgb 9.4 L Hct 28.8 L MCV MCH RDW 17.4 H Plt Count 567 H Lymph % (Auto) 7.8 L Lymph # (Auto) [place] # (Auto) 1.2 H Seg Neutrophils % 83.5 H Seg Neuts % (Manual) Lymphocytes % (Manual) Monocytes % (Manual) Basophils % (Manual) Seg Neutrophils # 14.1 H Seg Neutrophils # Man Lymphocytes # (Manual) Monocytes # (Manual) Eosinophils # (Manual) Basophils # (Manual) PT INR D-Dimer ABG pH POC ABG pCO2 POC ABG pO2 ABG pO2 ABG HCO3 ABG O2 Saturation ABG Base Excess ABG Hemoglobin ABG Oxyhemoglobin ABG Potassium ABG Glucose Oxyhemoglobin Carboxyhemoglobin Sodium Potassium Chloride Carbon Dioxide 36 H BUN Creatinine < 0.2 L Glucose 135 H POC Glucose 128 H Calcium Ferritin Total Bilirubin Alkaline Phosphatase Lactate Dehydrogenase Total Creatine Kinase CK-MB (CK-2) Rel Index Troponin T C-Reactive Protein Total Protein Albumin Prealbumin LDL Cholesterol Direct Arterial Blood Glucose Arterial Blood Ionized Calcium Urine WBC (Auto) 03/19/20 03/20/20 03/20/20 23:59 05:12 16:52 WBC RBC Hgb Hct MCV MCH RDW Plt Count Lymph % (Auto) Lymph # (Auto) [place] # (Auto) Seg Neutrophils % Seg Neuts % (Manual) Lymphocytes % (Manual) Monocytes % (Manual) Basophils % (Manual) Seg Neutrophils # Seg Neutrophils # Man Lymphocytes # (Manual) Monocytes # (Manual) Eosinophils # (Manual) Basophils # (Manual) PT INR D-Dimer ABG pH POC ABG pCO2 POC ABG pO2 ABG pO2 ABG HCO3 ABG O2 Saturation ABG Base Excess ABG Hemoglobin ABG Oxyhemoglobin ABG Potassium ABG Glucose Oxyhemoglobin Carboxyhemoglobin Sodium Potassium Chloride Carbon Dioxide BUN Creatinine Glucose POC Glucose 120 H 131 H 124 H Calcium Ferritin Total Bilirubin Alkaline Phosphatase Lactate Dehydrogenase Total Creatine Kinase CK-MB (CK-2) Rel Index Troponin T C-Reactive Protein Total Protein Albumin Prealbumin LDL Cholesterol Direct Arterial Blood Glucose Arterial Blood Ionized Calcium Urine WBC (Auto) 03/20/20 03/21/20 03/21/20 23:35 04:50 07:35 WBC 15.2 H RBC 3.39 L Hgb 9.4 L Hct 29.4 L MCV MCH RDW 17.6 H Plt Count 518 H Lymph % (Auto) Lymph # (Auto) [place] # (Auto) Seg Neutrophils % Seg Neuts % (Manual) 83.0 H Lymphocytes % (Manual) 10.0 L Monocytes % (Manual) Basophils % (Manual) 2.0 H Seg Neutrophils # Seg Neutrophils # Man 12.6 H Lymphocytes # (Manual) Monocytes # (Manual) Eosinophils # (Manual) Basophils # (Manual) 0.3 H PT INR D-Dimer ABG pH POC ABG pCO2 POC ABG pO2 ABG pO2 ABG HCO3 ABG O2 Saturation ABG Base Excess ABG Hemoglobin ABG Oxyhemoglobin ABG Potassium ABG Glucose Oxyhemoglobin Carboxyhemoglobin Sodium Potassium Chloride Carbon Dioxide BUN Creatinine Glucose POC Glucose 125 H 127 H Calcium Ferritin Total Bilirubin Alkaline Phosphatase Lactate Dehydrogenase Total Creatine Kinase CK-MB (CK-2) Rel Index Troponin T C-Reactive Protein Total Protein Albumin Prealbumin LDL Cholesterol Direct Arterial Blood Glucose Arterial Blood Ionized Calcium Urine WBC (Auto) 03/21/20 03/21/20 03/21/20 07:35 11:45 17:22 WBC RBC Hgb Hct MCV MCH RDW Plt Count Lymph % (Auto) Lymph # (Auto) [place] # (Auto) Seg Neutrophils % Seg Neuts % (Manual) Lymphocytes % (Manual) Monocytes % (Manual) Basophils % (Manual) Seg Neutrophils # Seg Neutrophils # Man Lymphocytes # (Manual) Monocytes # (Manual) Eosinophils # (Manual) Basophils # (Manual) PT INR D-Dimer ABG pH POC ABG pCO2 POC ABG pO2 ABG pO2 ABG HCO3 ABG O2 Saturation ABG Base Excess ABG Hemoglobin ABG Oxyhemoglobin ABG Potassium ABG Glucose Oxyhemoglobin Carboxyhemoglobin Sodium 136 L Potassium Chloride 97.7 L Carbon Dioxide 32 H BUN Creatinine < 0.2 L Glucose 103 H POC Glucose 126 H 120 H Calcium Ferritin Total Bilirubin Alkaline Phosphatase Lactate Dehydrogenase Total Creatine Kinase CK-MB (CK-2) Rel Index Troponin T C-Reactive Protein Total Protein Albumin Prealbumin LDL Cholesterol Direct Arterial Blood Glucose Arterial Blood Ionized Calcium Urine WBC (Auto) 03/22/20 03/22/20 03/22/20 05:09 06:34 06:34 WBC 17.5 H RBC 3.52 L Hgb 10.0 L Hct 30.7 L MCV MCH RDW 17.5 H Plt Count 499 H Lymph % (Auto) Lymph # (Auto) [place] # (Auto) Seg Neutrophils % Seg Neuts % (Manual) 80.0 H Lymphocytes % (Manual) 10.0 L Monocytes % (Manual) Basophils % (Manual) Seg Neutrophils # Seg Neutrophils # Man 14.0 H Lymphocytes # (Manual) Monocytes # (Manual) Eosinophils # (Manual) Basophils # (Manual) PT INR D-Dimer ABG pH POC ABG pCO2 POC ABG pO2 ABG pO2 ABG HCO3 ABG O2 Saturation ABG Base Excess ABG Hemoglobin ABG Oxyhemoglobin ABG Potassium ABG Glucose Oxyhemoglobin Carboxyhemoglobin Sodium Potassium Chloride 96.6 L Carbon Dioxide 38 H BUN Creatinine < 0.2 L Glucose 139 H POC Glucose 125 H Calcium Ferritin Total Bilirubin Alkaline Phosphatase Lactate Dehydrogenase Total Creatine Kinase CK-MB (CK-2) Rel Index Troponin T C-Reactive Protein Total Protein Albumin Prealbumin LDL Cholesterol Direct Arterial Blood Glucose Arterial Blood Ionized Calcium Urine WBC (Auto) 03/22/20 03/22/20 03/22/20 11:45 18:00 23:32 WBC RBC Hgb Hct MCV MCH RDW Plt Count Lymph % (Auto) Lymph # (Auto) [place] # (Auto) Seg Neutrophils % Seg Neuts % (Manual) Lymphocytes % (Manual) Monocytes % (Manual) Basophils % (Manual) Seg Neutrophils # Seg Neutrophils # Man Lymphocytes # (Manual) Monocytes # (Manual) Eosinophils # (Manual) Basophils # (Manual) PT INR D-Dimer ABG pH POC ABG pCO2 POC ABG pO2 ABG pO2 ABG HCO3 ABG O2 Saturation ABG Base Excess ABG Hemoglobin ABG Oxyhemoglobin ABG Potassium ABG Glucose Oxyhemoglobin Carboxyhemoglobin Sodium Potassium Chloride Carbon Dioxide BUN Creatinine Glucose POC Glucose 135 H 133 H Calcium Ferritin Total Bilirubin Alkaline Phosphatase Lactate Dehydrogenase Total Creatine Kinase CK-MB (CK-2) Rel Index Troponin T 0.113 H* C-Reactive Protein Total Protein Albumin Prealbumin LDL Cholesterol Direct Arterial Blood Glucose Arterial Blood Ionized Calcium Urine WBC (Auto) 03/23/20 03/23/20 03/23/20 01:47 06:21 07:57 WBC RBC Hgb Hct MCV MCH RDW Plt Count Lymph % (Auto) Lymph # (Auto) [place] # (Auto) Seg Neutrophils % Seg Neuts % (Manual) Lymphocytes % (Manual) Monocytes % (Manual) Basophils % (Manual) Seg Neutrophils # Seg Neutrophils # Man Lymphocytes # (Manual) Monocytes # (Manual) Eosinophils # (Manual) Basophils # (Manual) PT INR D-Dimer ABG pH POC ABG pCO2 POC ABG pO2 ABG pO2 ABG HCO3 ABG O2 Saturation ABG Base Excess ABG Hemoglobin ABG Oxyhemoglobin ABG Potassium ABG Glucose Oxyhemoglobin Carboxyhemoglobin Sodium Potassium Chloride Carbon Dioxide BUN Creatinine Glucose POC Glucose 130 H Calcium Ferritin Total Bilirubin Alkaline Phosphatase Lactate Dehydrogenase Total Creatine Kinase CK-MB (CK-2) Rel Index Troponin T 0.143 H* D 0.105 H* D C-Reactive Protein Total Protein Albumin Prealbumin LDL Cholesterol Direct Arterial Blood Glucose Arterial Blood Ionized Calcium Urine WBC (Auto) 03/23/20 03/24/20 03/24/20 12:02 05:33 07:15 WBC 18.0 H RBC Hgb 11.0 L Hct 34.0 L MCV MCH RDW 17.4 H Plt Count 520 H Lymph % (Auto) Lymph # (Auto) [place] # (Auto) Seg Neutrophils % Seg Neuts % (Manual) 88.0 H Lymphocytes % (Manual) 7.0 L Monocytes % (Manual) Basophils % (Manual) Seg Neutrophils # Seg Neutrophils # Man 15.8 H Lymphocytes # (Manual) Monocytes # (Manual) Eosinophils # (Manual) Basophils # (Manual) PT INR D-Dimer ABG pH POC ABG pCO2 POC ABG pO2 ABG pO2 ABG HCO3 ABG O2 Saturation ABG Base Excess ABG Hemoglobin ABG Oxyhemoglobin ABG Potassium ABG Glucose Oxyhemoglobin Carboxyhemoglobin Sodium Potassium Chloride Carbon Dioxide BUN Creatinine Glucose POC Glucose 137 H 112 H Calcium Ferritin Total Bilirubin Alkaline Phosphatase Lactate Dehydrogenase Total Creatine Kinase CK-MB (CK-2) Rel Index Troponin T C-Reactive Protein Total Protein Albumin Prealbumin LDL Cholesterol Direct Arterial Blood Glucose Arterial Blood Ionized Calcium Urine WBC (Auto) 03/24/20 03/24/20 03/24/20 07:15 11:22 23:30 WBC RBC Hgb Hct MCV MCH RDW Plt Count Lymph % (Auto) Lymph # (Auto) [place] # (Auto) Seg Neutrophils % Seg Neuts % (Manual) Lymphocytes % (Manual) Monocytes % (Manual) Basophils % (Manual) Seg Neutrophils # Seg Neutrophils # Man Lymphocytes # (Manual) Monocytes # (Manual) Eosinophils # (Manual) Basophils # (Manual) PT INR D-Dimer ABG pH POC ABG pCO2 POC ABG pO2 ABG pO2 ABG HCO3 ABG O2 Saturation ABG Base Excess ABG Hemoglobin ABG Oxyhemoglobin ABG Potassium ABG Glucose Oxyhemoglobin Carboxyhemoglobin Sodium Potassium Chloride 96.6 L Carbon Dioxide 38 H BUN Creatinine < 0.2 L Glucose 141 H POC Glucose 130 H 120 H Calcium Ferritin Total Bilirubin Alkaline Phosphatase Lactate Dehydrogenase Total Creatine Kinase CK-MB (CK-2) Rel Index Troponin T C-Reactive Protein Total Protein Albumin Prealbumin LDL Cholesterol Direct Arterial Blood Glucose Arterial Blood Ionized Calcium Urine WBC (Auto) 03/25/20 03/25/20 03/25/20 05:48 17:53 23:18 WBC RBC Hgb Hct MCV MCH RDW Plt Count Lymph % (Auto) Lymph # (Auto) [place] # (Auto) Seg Neutrophils % Seg Neuts % (Manual) Lymphocytes % (Manual) Monocytes % (Manual) Basophils % (Manual) Seg Neutrophils # Seg Neutrophils # Man Lymphocytes # (Manual) Monocytes # (Manual) Eosinophils # (Manual) Basophils # (Manual) PT INR D-Dimer ABG pH POC ABG pCO2 POC ABG pO2 ABG pO2 ABG HCO3 ABG O2 Saturation ABG Base Excess ABG Hemoglobin ABG Oxyhemoglobin ABG Potassium ABG Glucose Oxyhemoglobin Carboxyhemoglobin Sodium Potassium Chloride Carbon Dioxide BUN Creatinine Glucose POC Glucose 124 H 109 H 131 H Calcium Ferritin Total Bilirubin Alkaline Phosphatase Lactate Dehydrogenase Total Creatine Kinase CK-MB (CK-2) Rel Index Troponin T C-Reactive Protein Total Protein Albumin Prealbumin LDL Cholesterol Direct Arterial Blood Glucose Arterial Blood Ionized Calcium Urine WBC (Auto) 03/26/20 03/26/20 03/26/20 05:21 08:49 08:49 WBC 19.7 H RBC Hgb 10.7 L Hct 33.5 L MCV MCH 27 L RDW 17.1 H Plt Count 480 H Lymph % (Auto) 5.7 L Lymph # (Auto) 1.1 L [place] # (Auto) 1.2 H Seg Neutrophils % 87.7 H Seg Neuts % (Manual) Lymphocytes % (Manual) Monocytes % (Manual) Basophils % (Manual) Seg Neutrophils # 17.2 H Seg Neutrophils # Man Lymphocytes # (Manual) Monocytes # (Manual) Eosinophils # (Manual) Basophils # (Manual) PT INR D-Dimer ABG pH POC ABG pCO2 POC ABG pO2 ABG pO2 ABG HCO3 ABG O2 Saturation ABG Base Excess ABG Hemoglobin ABG Oxyhemoglobin ABG Potassium ABG Glucose Oxyhemoglobin Carboxyhemoglobin Sodium Potassium Chloride 97.2 L Carbon Dioxide 36 H BUN Creatinine < 0.2 L Glucose 127 H POC Glucose 116 H Calcium Ferritin Total Bilirubin Alkaline Phosphatase Lactate Dehydrogenase Total Creatine Kinase CK-MB (CK-2) Rel Index Troponin T C-Reactive Protein Total Protein Albumin Prealbumin LDL Cholesterol Direct Arterial Blood Glucose Arterial Blood Ionized Calcium Urine WBC (Auto) 03/26/20 03/26/20 03/26/20 11:38 18:44 23:06 WBC RBC Hgb Hct MCV MCH RDW Plt Count Lymph % (Auto) Lymph # (Auto) [place] # (Auto) Seg Neutrophils % Seg Neuts % (Manual) Lymphocytes % (Manual) Monocytes % (Manual) Basophils % (Manual) Seg Neutrophils # Seg Neutrophils # Man Lymphocytes # (Manual) Monocytes # (Manual) Eosinophils # (Manual) Basophils # (Manual) PT INR D-Dimer ABG pH POC ABG pCO2 POC ABG pO2 ABG pO2 ABG HCO3 ABG O2 Saturation ABG Base Excess ABG Hemoglobin ABG Oxyhemoglobin ABG Potassium ABG Glucose Oxyhemoglobin Carboxyhemoglobin Sodium Potassium Chloride Carbon Dioxide BUN Creatinine Glucose POC Glucose 120 H 111 H 134 H Calcium Ferritin Total Bilirubin Alkaline Phosphatase Lactate Dehydrogenase Total Creatine Kinase CK-MB (CK-2) Rel Index Troponin T C-Reactive Protein Total Protein Albumin Prealbumin LDL Cholesterol Direct Arterial Blood Glucose Arterial Blood Ionized Calcium Urine WBC (Auto) 03/27/20 03/27/20 03/27/20 05:41 05:59 05:59 WBC 18.6 H RBC Hgb 10.1 L Hct 31.4 L MCV MCH RDW 17.2 H Plt Count Lymph % (Auto) 8.0 L Lymph # (Auto) [place] # (Auto) 1.2 H Seg Neutrophils % 84.7 H Seg Neuts % (Manual) Lymphocytes % (Manual) Monocytes % (Manual) Basophils % (Manual) Seg Neutrophils # 15.8 H Seg Neutrophils # Man Lymphocytes # (Manual) Monocytes # (Manual) Eosinophils # (Manual) Basophils # (Manual) PT INR D-Dimer ABG pH POC ABG pCO2 POC ABG pO2 ABG pO2 ABG HCO3 ABG O2 Saturation ABG Base Excess ABG Hemoglobin ABG Oxyhemoglobin ABG Potassium ABG Glucose Oxyhemoglobin Carboxyhemoglobin Sodium Potassium Chloride Carbon Dioxide 34 H BUN Creatinine < 0.2 L Glucose 127 H POC Glucose 129 H Calcium Ferritin Total Bilirubin Alkaline Phosphatase Lactate Dehydrogenase Total Creatine Kinase CK-MB (CK-2) Rel Index Troponin T C-Reactive Protein Total Protein Albumin Prealbumin LDL Cholesterol Direct Arterial Blood Glucose Arterial Blood Ionized Calcium Urine WBC (Auto) 03/27/20 03/27/20 03/28/20 17:28 23:22 05:23 WBC RBC Hgb Hct MCV MCH RDW Plt Count Lymph % (Auto) Lymph # (Auto) [place] # (Auto) Seg Neutrophils % Seg Neuts % (Manual) Lymphocytes % (Manual) Monocytes % (Manual) Basophils % (Manual) Seg Neutrophils # Seg Neutrophils # Man Lymphocytes # (Manual) Monocytes # (Manual) Eosinophils # (Manual) Basophils # (Manual) PT INR D-Dimer ABG pH POC ABG pCO2 POC ABG pO2 ABG pO2 ABG HCO3 ABG O2 Saturation ABG Base Excess ABG Hemoglobin ABG Oxyhemoglobin ABG Potassium ABG Glucose Oxyhemoglobin Carboxyhemoglobin Sodium Potassium Chloride Carbon Dioxide BUN Creatinine Glucose POC Glucose 108 H 119 H 129 H Calcium Ferritin Total Bilirubin Alkaline Phosphatase Lactate Dehydrogenase Total Creatine Kinase CK-MB (CK-2) Rel Index Troponin T C-Reactive Protein Total Protein Albumin Prealbumin LDL Cholesterol Direct Arterial Blood Glucose Arterial Blood Ionized Calcium Urine WBC (Auto) 03/28/20 03/28/20 03/28/20 10:28 10:28 11:36 WBC 23.6 H RBC 3.62 L Hgb 10.0 L Hct 30.8 L MCV MCH RDW 16.4 H Plt Count Lymph % (Auto) Lymph # (Auto) [place] # (Auto) Seg Neutrophils % Seg Neuts % (Manual) 89.0 H Lymphocytes % (Manual) 5.0 L Monocytes % (Manual) Basophils % (Manual) Seg Neutrophils # Seg Neutrophils # Man 21.0 H Lymphocytes # (Manual) Monocytes # (Manual) 1.2 H Eosinophils # (Manual) Basophils # (Manual) 0.2 H PT INR D-Dimer ABG pH POC ABG pCO2 POC ABG pO2 ABG pO2 ABG HCO3 ABG O2 Saturation ABG Base Excess ABG Hemoglobin ABG Oxyhemoglobin ABG Potassium ABG Glucose Oxyhemoglobin Carboxyhemoglobin Sodium 134 L Potassium Chloride 94.2 L Carbon Dioxide 35 H BUN Creatinine < 0.2 L Glucose 134 H POC Glucose Calcium Ferritin Total Bilirubin Alkaline Phosphatase Lactate Dehydrogenase Total Creatine Kinase CK-MB (CK-2) Rel Index Troponin T C-Reactive Protein Total Protein Albumin Prealbumin LDL Cholesterol Direct Arterial Blood Glucose Arterial Blood Ionized Calcium Urine WBC (Auto) 39.0 H 03/28/20 03/28/20 03/28/20 11:51 17:08 17:17 WBC RBC Hgb Hct MCV MCH RDW Plt Count Lymph % (Auto) Lymph # (Auto) [place] # (Auto) Seg Neutrophils % Seg Neuts % (Manual) Lymphocytes % (Manual) Monocytes % (Manual) Basophils % (Manual) Seg Neutrophils # Seg Neutrophils # Man Lymphocytes # (Manual) Monocytes # (Manual) Eosinophils # (Manual) Basophils # (Manual) PT INR D-Dimer ABG pH POC ABG pCO2 POC ABG pO2 ABG pO2 ABG HCO3 ABG O2 Saturation ABG Base Excess ABG Hemoglobin ABG Oxyhemoglobin ABG Potassium ABG Glucose Oxyhemoglobin Carboxyhemoglobin Sodium Potassium Chloride Carbon Dioxide BUN Creatinine Glucose POC Glucose 123 H 112 H Calcium Ferritin Total Bilirubin Alkaline Phosphatase Lactate Dehydrogenase Total Creatine Kinase 47 L CK-MB (CK-2) Rel Index 4.6 H Troponin T 0.090 H C-Reactive Protein Total Protein Albumin Prealbumin LDL Cholesterol Direct Arterial Blood Glucose Arterial Blood Ionized Calcium Urine WBC (Auto) 03/28/20 03/29/20 03/29/20 23:22 05:22 10:58 WBC RBC Hgb Hct MCV MCH RDW Plt Count Lymph % (Auto) Lymph # (Auto) [place] # (Auto) Seg Neutrophils % Seg Neuts % (Manual) Lymphocytes % (Manual) Monocytes % (Manual) Basophils % (Manual) Seg Neutrophils # Seg Neutrophils # Man Lymphocytes # (Manual) Monocytes # (Manual) Eosinophils # (Manual) Basophils # (Manual) PT INR D-Dimer ABG pH POC ABG pCO2 POC ABG pO2 ABG pO2 ABG HCO3 ABG O2 Saturation ABG Base Excess ABG Hemoglobin ABG Oxyhemoglobin ABG Potassium ABG Glucose Oxyhemoglobin Carboxyhemoglobin Sodium Potassium Chloride Carbon Dioxide BUN Creatinine Glucose POC Glucose 122 H 116 H 133 H Calcium Ferritin Total Bilirubin Alkaline Phosphatase Lactate Dehydrogenase Total Creatine Kinase CK-MB (CK-2) Rel Index Troponin T C-Reactive Protein Total Protein Albumin Prealbumin LDL Cholesterol Direct Arterial Blood Glucose Arterial Blood Ionized Calcium Urine WBC (Auto) 03/29/20 03/29/20 03/30/20 17:18 23:14 04:57 WBC RBC Hgb Hct MCV MCH RDW Plt Count Lymph % (Auto) Lymph # (Auto) [place] # (Auto) Seg Neutrophils % Seg Neuts % (Manual) Lymphocytes % (Manual) Monocytes % (Manual) Basophils % (Manual) Seg Neutrophils # Seg Neutrophils # Man Lymphocytes # (Manual) Monocytes # (Manual) Eosinophils # (Manual) Basophils # (Manual) PT INR D-Dimer ABG pH POC ABG pCO2 POC ABG pO2 ABG pO2 ABG HCO3 ABG O2 Saturation ABG Base Excess ABG Hemoglobin ABG Oxyhemoglobin ABG Potassium ABG Glucose Oxyhemoglobin Carboxyhemoglobin Sodium Potassium Chloride Carbon Dioxide BUN Creatinine Glucose POC Glucose 111 H 114 H 130 H Calcium Ferritin Total Bilirubin Alkaline Phosphatase Lactate Dehydrogenase Total Creatine Kinase CK-MB (CK-2) Rel Index Troponin T C-Reactive Protein Total Protein Albumin Prealbumin LDL Cholesterol Direct Arterial Blood Glucose Arterial Blood Ionized Calcium Urine WBC (Auto) 03/30/20 03/30/20 03/30/20 11:38 14:47 14:47 WBC 19.9 H RBC Hgb 10.9 L Hct 34.4 L MCV MCH 27 L RDW 16.5 H Plt Count 441 H Lymph % (Auto) 6.4 L Lymph # (Auto) [place] # (Auto) 1.4 H Seg Neutrophils % 86.1 H Seg Neuts % (Manual) Lymphocytes % (Manual) Monocytes % (Manual) Basophils % (Manual) Seg Neutrophils # 17.1 H Seg Neutrophils # Man Lymphocytes # (Manual) Monocytes # (Manual) Eosinophils # (Manual) Basophils # (Manual) PT INR D-Dimer ABG pH POC ABG pCO2 POC ABG pO2 ABG pO2 ABG HCO3 ABG O2 Saturation ABG Base Excess ABG Hemoglobin ABG Oxyhemoglobin ABG Potassium ABG Glucose Oxyhemoglobin Carboxyhemoglobin Sodium 133 L Potassium Chloride 94.6 L Carbon Dioxide 33 H BUN Creatinine < 0.2 L Glucose 194 H POC Glucose 139 H Calcium Ferritin Total Bilirubin Alkaline Phosphatase Lactate Dehydrogenase Total Creatine Kinase CK-MB (CK-2) Rel Index Troponin T C-Reactive Protein Total Protein Albumin 2.8 L Prealbumin LDL Cholesterol Direct Arterial Blood Glucose Arterial Blood Ionized Calcium Urine WBC (Auto) 03/30/20 03/31/20 03/31/20 17:07 05:02 15:21 WBC RBC Hgb Hct MCV MCH RDW Plt Count Lymph % (Auto) Lymph # (Auto) [place] # (Auto) Seg Neutrophils % Seg Neuts % (Manual) Lymphocytes % (Manual) Monocytes % (Manual) Basophils % (Manual) Seg Neutrophils # Seg Neutrophils # Man Lymphocytes # (Manual) Monocytes # (Manual) Eosinophils # (Manual) Basophils # (Manual) PT INR D-Dimer ABG pH POC ABG pCO2 POC ABG pO2 ABG pO2 ABG HCO3 ABG O2 Saturation ABG Base Excess ABG Hemoglobin ABG Oxyhemoglobin ABG Potassium ABG Glucose Oxyhemoglobin Carboxyhemoglobin Sodium Potassium Chloride Carbon Dioxide BUN Creatinine Glucose POC Glucose 163 H 108 H 110 H Calcium Ferritin Total Bilirubin Alkaline Phosphatase Lactate Dehydrogenase Total Creatine Kinase CK-MB (CK-2) Rel Index Troponin T C-Reactive Protein Total Protein Albumin Prealbumin LDL Cholesterol Direct Arterial Blood Glucose Arterial Blood Ionized Calcium Urine WBC (Auto) 03/31/20 03/31/20 04/01/20 17:58 23:19 05:09 WBC RBC Hgb Hct MCV MCH RDW Plt Count Lymph % (Auto) Lymph # (Auto) [place] # (Auto) Seg Neutrophils % Seg Neuts % (Manual) Lymphocytes % (Manual) Monocytes % (Manual) Basophils % (Manual) Seg Neutrophils # Seg Neutrophils # Man Lymphocytes # (Manual) Monocytes # (Manual) Eosinophils # (Manual) Basophils # (Manual) PT INR D-Dimer ABG pH POC ABG pCO2 POC ABG pO2 ABG pO2 ABG HCO3 ABG O2 Saturation ABG Base Excess ABG Hemoglobin ABG Oxyhemoglobin ABG Potassium ABG Glucose Oxyhemoglobin Carboxyhemoglobin Sodium Potassium Chloride Carbon Dioxide BUN Creatinine Glucose POC Glucose 110 H 131 H 124 H Calcium Ferritin Total Bilirubin Alkaline Phosphatase Lactate Dehydrogenase Total Creatine Kinase CK-MB (CK-2) Rel Index Troponin T C-Reactive Protein Total Protein Albumin Prealbumin LDL Cholesterol Direct Arterial Blood Glucose Arterial Blood Ionized Calcium Urine WBC (Auto) 04/01/20 04/01/20 04/01/20 11:50 17:01 23:21 WBC RBC Hgb Hct MCV MCH RDW Plt Count Lymph % (Auto) Lymph # (Auto) [place] # (Auto) Seg Neutrophils % Seg Neuts % (Manual) Lymphocytes % (Manual) Monocytes % (Manual) Basophils % (Manual) Seg Neutrophils # Seg Neutrophils # Man Lymphocytes # (Manual) Monocytes # (Manual) Eosinophils # (Manual) Basophils # (Manual) PT INR D-Dimer ABG pH POC ABG pCO2 POC ABG pO2 ABG pO2 ABG HCO3 ABG O2 Saturation ABG Base Excess ABG Hemoglobin ABG Oxyhemoglobin ABG Potassium ABG Glucose Oxyhemoglobin Carboxyhemoglobin Sodium Potassium Chloride Carbon Dioxide BUN Creatinine Glucose POC Glucose 136 H 115 H 124 H Calcium Ferritin Total Bilirubin Alkaline Phosphatase Lactate Dehydrogenase Total Creatine Kinase CK-MB (CK-2) Rel Index Troponin T C-Reactive Protein Total Protein Albumin Prealbumin LDL Cholesterol Direct Arterial Blood Glucose Arterial Blood Ionized Calcium Urine WBC (Auto) 04/02/20 04/02/20 04/02/20 05:27 11:58 17:58 WBC RBC Hgb Hct MCV MCH RDW Plt Count Lymph % (Auto) Lymph # (Auto) [place] # (Auto) Seg Neutrophils % Seg Neuts % (Manual) Lymphocytes % (Manual) Monocytes % (Manual) Basophils % (Manual) Seg Neutrophils # Seg Neutrophils # Man Lymphocytes # (Manual) Monocytes # (Manual) Eosinophils # (Manual) Basophils # (Manual) PT INR D-Dimer ABG pH POC ABG pCO2 POC ABG pO2 ABG pO2 ABG HCO3 ABG O2 Saturation ABG Base Excess ABG Hemoglobin ABG Oxyhemoglobin ABG Potassium ABG Glucose Oxyhemoglobin Carboxyhemoglobin Sodium Potassium Chloride Carbon Dioxide BUN Creatinine Glucose POC Glucose 117 H 133 H 122 H Calcium Ferritin Total Bilirubin Alkaline Phosphatase Lactate Dehydrogenase Total Creatine Kinase CK-MB (CK-2) Rel Index Troponin T C-Reactive Protein Total Protein Albumin Prealbumin LDL Cholesterol Direct Arterial Blood Glucose Arterial Blood Ionized Calcium Urine WBC (Auto) 04/02/20 04/03/20 04/03/20 23:12 05:11 11:11 WBC RBC Hgb Hct MCV MCH RDW Plt Count Lymph % (Auto) Lymph # (Auto) [place] # (Auto) Seg Neutrophils % Seg Neuts % (Manual) Lymphocytes % (Manual) Monocytes % (Manual) Basophils % (Manual) Seg Neutrophils # Seg Neutrophils # Man Lymphocytes # (Manual) Monocytes # (Manual) Eosinophils # (Manual) Basophils # (Manual) PT INR D-Dimer ABG pH POC ABG pCO2 POC ABG pO2 ABG pO2 ABG HCO3 ABG O2 Saturation ABG Base Excess ABG Hemoglobin ABG Oxyhemoglobin ABG Potassium ABG Glucose Oxyhemoglobin Carboxyhemoglobin Sodium Potassium Chloride Carbon Dioxide BUN Creatinine Glucose POC Glucose 130 H 139 H 136 H Calcium Ferritin Total Bilirubin Alkaline Phosphatase Lactate Dehydrogenase Total Creatine Kinase CK-MB (CK-2) Rel Index Troponin T C-Reactive Protein Total Protein Albumin Prealbumin LDL Cholesterol Direct Arterial Blood Glucose Arterial Blood Ionized Calcium Urine WBC (Auto) 04/03/20 04/03/20 04/04/20 16:51 23:25 05:29 WBC RBC Hgb Hct MCV MCH RDW Plt Count Lymph % (Auto) Lymph # (Auto) [place] # (Auto) Seg Neutrophils % Seg Neuts % (Manual) Lymphocytes % (Manual) Monocytes % (Manual) Basophils % (Manual) Seg Neutrophils # Seg Neutrophils # Man Lymphocytes # (Manual) Monocytes # (Manual) Eosinophils # (Manual) Basophils # (Manual) PT INR D-Dimer ABG pH POC ABG pCO2 POC ABG pO2 ABG pO2 ABG HCO3 ABG O2 Saturation ABG Base Excess ABG Hemoglobin ABG Oxyhemoglobin ABG Potassium ABG Glucose Oxyhemoglobin Carboxyhemoglobin Sodium Potassium Chloride Carbon Dioxide BUN Creatinine Glucose POC Glucose 118 H 111 H 126 H Calcium Ferritin Total Bilirubin Alkaline Phosphatase Lactate Dehydrogenase Total Creatine Kinase CK-MB (CK-2) Rel Index Troponin T C-Reactive Protein Total Protein Albumin Prealbumin LDL Cholesterol Direct Arterial Blood Glucose Arterial Blood Ionized Calcium Urine WBC (Auto) 04/04/20 04/04/20 04/04/20 11:47 17:41 23:05 WBC RBC Hgb Hct MCV MCH RDW Plt Count Lymph % (Auto) Lymph # (Auto) [place] # (Auto) Seg Neutrophils % Seg Neuts % (Manual) Lymphocytes % (Manual) Monocytes % (Manual) Basophils % (Manual) Seg Neutrophils # Seg Neutrophils # Man Lymphocytes # (Manual) Monocytes # (Manual) Eosinophils # (Manual) Basophils # (Manual) PT INR D-Dimer ABG pH POC ABG pCO2 POC ABG pO2 ABG pO2 ABG HCO3 ABG O2 Saturation ABG Base Excess ABG Hemoglobin ABG Oxyhemoglobin ABG Potassium ABG Glucose Oxyhemoglobin Carboxyhemoglobin Sodium Potassium Chloride Carbon Dioxide BUN Creatinine Glucose POC Glucose 123 H 120 H 119 H Calcium Ferritin Total Bilirubin Alkaline Phosphatase Lactate Dehydrogenase Total Creatine Kinase CK-MB (CK-2) Rel Index Troponin T C-Reactive Protein Total Protein Albumin Prealbumin LDL Cholesterol Direct Arterial Blood Glucose Arterial Blood Ionized Calcium Urine WBC (Auto) 04/05/20 04/05/20 04/05/20 05:14 12:16 18:48 WBC RBC Hgb Hct MCV MCH RDW Plt Count Lymph % (Auto) Lymph # (Auto) [place] # (Auto) Seg Neutrophils % Seg Neuts % (Manual) Lymphocytes % (Manual) Monocytes % (Manual) Basophils % (Manual) Seg Neutrophils # Seg Neutrophils # Man Lymphocytes # (Manual) Monocytes # (Manual) Eosinophils # (Manual) Basophils # (Manual) PT INR D-Dimer ABG pH POC ABG pCO2 POC ABG pO2 ABG pO2 ABG HCO3 ABG O2 Saturation ABG Base Excess ABG Hemoglobin ABG Oxyhemoglobin ABG Potassium ABG Glucose Oxyhemoglobin Carboxyhemoglobin Sodium Potassium Chloride Carbon Dioxide BUN Creatinine Glucose POC Glucose 123 H 148 H 106 H Calcium Ferritin Total Bilirubin Alkaline Phosphatase Lactate Dehydrogenase Total Creatine Kinase CK-MB (CK-2) Rel Index Troponin T C-Reactive Protein Total Protein Albumin Prealbumin LDL Cholesterol Direct Arterial Blood Glucose Arterial Blood Ionized Calcium Urine WBC (Auto) 04/06/20 04/06/20 04/06/20 00:47 03:26 08:24 WBC RBC Hgb Hct MCV MCH RDW Plt Count Lymph % (Auto) Lymph # (Auto) [place] # (Auto) Seg Neutrophils % Seg Neuts % (Manual) Lymphocytes % (Manual) Monocytes % (Manual) Basophils % (Manual) Seg Neutrophils # Seg Neutrophils # Man Lymphocytes # (Manual) Monocytes # (Manual) Eosinophils # (Manual) Basophils # (Manual) PT INR D-Dimer ABG pH POC ABG pCO2 POC ABG pO2 ABG pO2 ABG HCO3 ABG O2 Saturation ABG Base Excess ABG Hemoglobin ABG Oxyhemoglobin ABG Potassium ABG Glucose Oxyhemoglobin Carboxyhemoglobin Sodium Potassium Chloride Carbon Dioxide BUN Creatinine Glucose POC Glucose 129 H 134 H 131 H Calcium Ferritin Total Bilirubin Alkaline Phosphatase Lactate Dehydrogenase Total Creatine Kinase CK-MB (CK-2) Rel Index Troponin T C-Reactive Protein Total Protein Albumin Prealbumin LDL Cholesterol Direct Arterial Blood Glucose Arterial Blood Ionized Calcium Urine WBC (Auto) 04/06/20 04/06/20 04/06/20 11:16 16:27 23:01 WBC RBC Hgb Hct MCV MCH RDW Plt Count Lymph % (Auto) Lymph # (Auto) [place] # (Auto) Seg Neutrophils % Seg Neuts % (Manual) Lymphocytes % (Manual) Monocytes % (Manual) Basophils % (Manual) Seg Neutrophils # Seg Neutrophils # Man Lymphocytes # (Manual) Monocytes # (Manual) Eosinophils # (Manual) Basophils # (Manual) PT INR D-Dimer ABG pH POC ABG pCO2 POC ABG pO2 ABG pO2 ABG HCO3 ABG O2 Saturation ABG Base Excess ABG Hemoglobin ABG Oxyhemoglobin ABG Potassium ABG Glucose Oxyhemoglobin Carboxyhemoglobin Sodium Potassium Chloride Carbon Dioxide BUN Creatinine Glucose POC Glucose 131 H 107 H 125 H Calcium Ferritin Total Bilirubin Alkaline Phosphatase Lactate Dehydrogenase Total Creatine Kinase CK-MB (CK-2) Rel Index Troponin T C-Reactive Protein Total Protein Albumin Prealbumin LDL Cholesterol Direct Arterial Blood Glucose Arterial Blood Ionized Calcium Urine WBC (Auto) 04/07/20 04/07/20 04/07/20 05:24 12:41 17:40 WBC RBC Hgb Hct MCV MCH RDW Plt Count Lymph % (Auto) Lymph # (Auto) [place] # (Auto) Seg Neutrophils % Seg Neuts % (Manual) Lymphocytes % (Manual) Monocytes % (Manual) Basophils % (Manual) Seg Neutrophils # Seg Neutrophils # Man Lymphocytes # (Manual) Monocytes # (Manual) Eosinophils # (Manual) Basophils # (Manual) PT INR D-Dimer ABG pH POC ABG pCO2 POC ABG pO2 ABG pO2 ABG HCO3 ABG O2 Saturation ABG Base Excess ABG Hemoglobin ABG Oxyhemoglobin ABG Potassium ABG Glucose Oxyhemoglobin Carboxyhemoglobin Sodium Potassium Chloride Carbon Dioxide BUN Creatinine Glucose POC Glucose 125 H 145 H 123 H Calcium Ferritin Total Bilirubin Alkaline Phosphatase Lactate Dehydrogenase Total Creatine Kinase CK-MB (CK-2) Rel Index Troponin T C-Reactive Protein Total Protein Albumin Prealbumin LDL Cholesterol Direct Arterial Blood Glucose Arterial Blood Ionized Calcium Urine WBC (Auto) 04/07/20 04/08/20 04/08/20 23:22 05:40 11:29 WBC RBC Hgb Hct MCV MCH RDW Plt Count Lymph % (Auto) Lymph # (Auto) [place] # (Auto) Seg Neutrophils % Seg Neuts % (Manual) Lymphocytes % (Manual) Monocytes % (Manual) Basophils % (Manual) Seg Neutrophils # Seg Neutrophils # Man Lymphocytes # (Manual) Monocytes # (Manual) Eosinophils # (Manual) Basophils # (Manual) PT INR D-Dimer ABG pH POC ABG pCO2 POC ABG pO2 ABG pO2 ABG HCO3 ABG O2 Saturation ABG Base Excess ABG Hemoglobin ABG Oxyhemoglobin ABG Potassium ABG Glucose Oxyhemoglobin Carboxyhemoglobin Sodium Potassium Chloride Carbon Dioxide BUN Creatinine Glucose POC Glucose 133 H 125 H 116 H Calcium Ferritin Total Bilirubin Alkaline Phosphatase Lactate Dehydrogenase Total Creatine Kinase CK-MB (CK-2) Rel Index Troponin T C-Reactive Protein Total Protein Albumin Prealbumin LDL Cholesterol Direct Arterial Blood Glucose Arterial Blood Ionized Calcium Urine WBC (Auto) 04/08/20 04/09/20 04/09/20 17:43 05:47 12:22 WBC RBC Hgb Hct MCV MCH RDW Plt Count Lymph % (Auto) Lymph # (Auto) [place] # (Auto) Seg Neutrophils % Seg Neuts % (Manual) Lymphocytes % (Manual) Monocytes % (Manual) Basophils % (Manual) Seg Neutrophils # Seg Neutrophils # Man Lymphocytes # (Manual) Monocytes # (Manual) Eosinophils # (Manual) Basophils # (Manual) PT INR D-Dimer ABG pH POC ABG pCO2 POC ABG pO2 ABG pO2 ABG HCO3 ABG O2 Saturation ABG Base Excess ABG Hemoglobin ABG Oxyhemoglobin ABG Potassium ABG Glucose Oxyhemoglobin Carboxyhemoglobin Sodium Potassium Chloride Carbon Dioxide BUN Creatinine Glucose POC Glucose 123 H 108 H 116 H Calcium Ferritin Total Bilirubin Alkaline Phosphatase Lactate Dehydrogenase Total Creatine Kinase CK-MB (CK-2) Rel Index Troponin T C-Reactive Protein Total Protein Albumin Prealbumin LDL Cholesterol Direct Arterial Blood Glucose Arterial Blood Ionized Calcium Urine WBC (Auto) 04/09/20 04/09/20 04/10/20 17:24 23:52 06:10 WBC RBC Hgb Hct MCV MCH RDW Plt Count Lymph % (Auto) Lymph # (Auto) [place] # (Auto) Seg Neutrophils % Seg Neuts % (Manual) Lymphocytes % (Manual) Monocytes % (Manual) Basophils % (Manual) Seg Neutrophils # Seg Neutrophils # Man Lymphocytes # (Manual) Monocytes # (Manual) Eosinophils # (Manual) Basophils # (Manual) PT INR D-Dimer ABG pH POC ABG pCO2 POC ABG pO2 ABG pO2 ABG HCO3 ABG O2 Saturation ABG Base Excess ABG Hemoglobin ABG Oxyhemoglobin ABG Potassium ABG Glucose Oxyhemoglobin Carboxyhemoglobin Sodium Potassium Chloride Carbon Dioxide BUN Creatinine Glucose POC Glucose 108 H 126 H 122 H Calcium Ferritin Total Bilirubin Alkaline Phosphatase Lactate Dehydrogenase Total Creatine Kinase CK-MB (CK-2) Rel Index Troponin T C-Reactive Protein Total Protein Albumin Prealbumin LDL Cholesterol Direct Arterial Blood Glucose Arterial Blood Ionized Calcium Urine WBC (Auto) 04/10/20 04/10/20 04/10/20 11:27 18:11 23:24 WBC RBC Hgb Hct MCV MCH RDW Plt Count Lymph % (Auto) Lymph # (Auto) [place] # (Auto) Seg Neutrophils % Seg Neuts % (Manual) Lymphocytes % (Manual) Monocytes % (Manual) Basophils % (Manual) Seg Neutrophils # Seg Neutrophils # Man Lymphocytes # (Manual) Monocytes # (Manual) Eosinophils # (Manual) Basophils # (Manual) PT INR D-Dimer ABG pH POC ABG pCO2 POC ABG pO2 ABG pO2 ABG HCO3 ABG O2 Saturation ABG Base Excess ABG Hemoglobin ABG Oxyhemoglobin ABG Potassium ABG Glucose Oxyhemoglobin Carboxyhemoglobin Sodium Potassium Chloride Carbon Dioxide BUN Creatinine Glucose POC Glucose 129 H 125 H 107 H Calcium Ferritin Total Bilirubin Alkaline Phosphatase Lactate Dehydrogenase Total Creatine Kinase CK-MB (CK-2) Rel Index Troponin T C-Reactive Protein Total Protein Albumin Prealbumin LDL Cholesterol Direct Arterial Blood Glucose Arterial Blood Ionized Calcium Urine WBC (Auto) 04/11/20 05:28 WBC RBC Hgb Hct MCV MCH RDW Plt Count Lymph % (Auto) Lymph # (Auto) [place] # (Auto) Seg Neutrophils % Seg Neuts % (Manual) Lymphocytes % (Manual) Monocytes % (Manual) Basophils % (Manual) Seg Neutrophils # Seg Neutrophils # Man Lymphocytes # (Manual) Monocytes # (Manual) Eosinophils # (Manual) Basophils # (Manual) PT INR D-Dimer ABG pH POC ABG pCO2 POC ABG pO2 ABG pO2 ABG HCO3 ABG O2 Saturation ABG Base Excess ABG Hemoglobin ABG Oxyhemoglobin ABG Potassium ABG Glucose Oxyhemoglobin Carboxyhemoglobin Sodium Potassium Chloride Carbon Dioxide BUN Creatinine Glucose POC Glucose 122 H Calcium Ferritin Total Bilirubin Alkaline Phosphatase Lactate Dehydrogenase Total Creatine Kinase CK-MB (CK-2) Rel Index Troponin T C-Reactive Protein Total Protein Albumin Prealbumin LDL Cholesterol Direct Arterial Blood Glucose Arterial Blood Ionized Calcium Urine WBC (Auto) Allied health notes reviewed: RT
--- NOTE | 2020-04-11 14:06 | Progress Note ---
Assessment and Plan Assessment and plan: --Acute hypoxic hypercapnic respiratory failure; Tracheostomy on ventilatory support Wean as tolerated, continue supportive care Pulmonary following --History of ALS - Stable --Elevated D-dimers; CTA chest, lower extremity venous Doppler both are negative Lovenox DVT prophylaxis --Bilateral pneumonia; probably community-acquired Completed the treatment, continue supportive care --Sepsis secondary to pneumonia; completed the treatment resolved --Elevated troponin non-ST elevation GA type II Continue current management --Febrile illness; secondary to pneumonia Complete antibiotics , resolved --DVT prophylaxis; Lovenox. We will closely monitor the patient and adjust management as needed Plan of care reviewed with the patient's nurse The high probability OF a clinically significant sudden or life-threatening deterioration of the cardiorespiratory system and endocrine system required my full and direct attention, intervention and postoperative management. The aggregate critical care time was 32 minutes. The time is in addition to time spent performing reported procedures but in cludes the followin: Data review and interpretation 2: Patient assessment and monitoring of vital signs 3: Documentation 4:: Medication orders and management 03/28. Had temp 100.7F. He has been off antibiotics. Will send blood culture, ua, urine culture and chest xray. Had chest pain overnight and trop was elevated as well. Cardiology to evaluate 03/29. Has back pain due to position. He mentions his chest pain is positional. Has no other complaints. Still on mechanical ventilation 03/30. No chest pain today. Labs reviewed. Discussed chest pain with cardiology and team advised no further work up at this time. Can follow up with cardiology in the office after hospitalization 03/31. Lidocaine patch for lower back pain. 04/01. Discharge planning underway. CM notes reviewed. Discussed with daughter 04/02 - . CM trying to arrange discharge. Continue PSV trials. Discussed with patients significant other 04/04/2020; CM is working for discharge arrangement. Continue PSV trials. 04/05/2020; patient was seen and evaluated this morning and no change from baseline. Continue with PSV trials. Follow with hammer repairer for discharge planning. 04/06/2020;patient was seen and evaluated this morning and no change from baseline. Continue with PSV trials. Follow with hammer repairer for discharge planning. 04/07/2020; patient was seen and evaluated this morning and no change from baseline. Continue with PSV trials. Follow with hammer repairer for discharge planning. 04/08/2020; patient is vent dependent. Discharge is per hammer repairer. 04/09/2020 patient is vent dependent, possible LTAC placement 04/10/2020; tracheostomy on vent, vent dependent pending LTAC placement 04/11/2020; clinically no change, tracheostomy on ventilatory support, wean as tolerated, awaiting placement History Interval history: I have seen and examined the patient at the bedside in [facility] this morning Patient's chart and medications reviewed No new overnight events reported Patient with tracheostomy remains on ventilatory support Vital signs reviewed Hospitalist Physical - Constitutional Vitals: Temp Pulse Resp BP Pulse Ox 98.7 F 120 H 28 H 102/72 98 04/11/20 12:00 04/11/20 12:00 04/11/20 12:00 04/11/20 12:00 04/11/20 12:00 General appearance: Present: no acute distress, cachectic, disheveled, other (Cachectic) - EENT Eyes: Present: PERRL, EOM intact ENT: other (Tracheostomy on vent) - Neck Neck: Present: supple, normal ROM - Respiratory Respiratory effort: normal Respiratory: bilateral: diminished, rhonchi, negative: rales, wheezing - Cardiovascular Rhythm: regular Heart Sounds: Present: S1 & S2 - Extremities Extremities: no ischemia, No edema - Abdominal General gastrointestinal: soft, non-tender, non-distended, normal bowel sounds - Integumentary Integumentary: Present: clear, warm - Psychiatric Psychiatric: other (Tracheostomy on vent) - Neurologic Neurologic: other (Tracheostomy on vent) HEART Score - HEART Score Troponin: Troponin T 0.090 ng/mL (0.00-0.029) H 03/28/20 17:17 Results - Labs CBC & Chem 7: 03/30/20 14:47 03/30/20 14:47 Labs: Laboratory Last Values WBC 19.9 K/mm3 (4.5-11.0) H 03/30/20 14:47 RBC 4.01 M/mm3 (3.65-5.03) 03/30/20 14:47 Hgb 10.9 gm/dl (11.8-15.2) L 03/30/20 14:47 Hct 34.4 % (35.5-45.6) L 03/30/20 14:47 MCV 86 fl (84-94) 03/30/20 14:47 MCH 27 pg (28-32) L 03/30/20 14:47 MCHC 32 % (32-34) 03/30/20 14:47 RDW 16.5 % (13.2-15.2) H 03/30/20 14:47 Plt Count 441 K/mm3 (140-440) H 03/30/20 14:47 Lymph % (Auto) 6.4 % (13.4-35.0) L 03/30/20 14:47 [place] % (Auto) 7.2 % (0.0-7.3) 03/30/20 14:47 Eos % (Auto) 0.1 % (0.0-4.3) 03/30/20 14:47 Baso % (Auto) 0.2 % (0.0-1.8) 03/30/20 14:47 Lymph # (Auto) 1.3 K/mm3 (1.2-5.4) 03/30/20 14:47 [place] # (Auto) 1.4 K/mm3 (0.0-0.8) H 03/30/20 14:47 Eos # (Auto) 0.0 K/mm3 (0.0-0.4) 03/30/20 14:47 Baso # (Auto) 0.0 K/mm3 (0.0-0.1) 03/30/20 14:47 Add Manual Diff Complete 03/28/20 10:28 Total Counted 100 03/28/20 10:28 Seg Neutrophils % 86.1 % (40.0-70.0) H 03/30/20 14:47 Seg Neuts % (Manual) 89.0 % (40.0-70.0) H 03/28/20 10:28 Band Neutrophils % 0 % 03/28/20 10:28 Lymphocytes % (Manual) 5.0 % (13.4-35.0) L 03/28/20 10:28 Reactive Lymphs % (Man) 0 % 03/28/20 10:28 Monocytes % (Manual) 5.0 % (0.0-7.3) 03/28/20 10:28 Eosinophils % (Manual) 0 % (0.0-4.3) 03/28/20 10:28 Basophils % (Manual) 1.0 % (0.0-1.8) 03/28/20 10:28 Metamyelocytes % 0 % 03/28/20 10:28 Myelocytes % 0 % 03/28/20 10:28 Promyelocytes % 0 % 03/28/20 10:28 Blast Cells % 0 % 03/28/20 10:28 Nucleated RBC % Not Reportable 03/28/20 10:28 Seg Neutrophils # 17.1 K/mm3 (1.8-7.7) H 03/30/20 14:47 Seg Neutrophils # Man 21.0 K/mm3 (1.8-7.7) H 03/28/20 10:28 Band Neutrophils # 0.0 K/mm3 03/28/20 10:28 Lymphocytes # (Manual) 1.2 K/mm3 (1.2-5.4) 03/28/20 10:28 Abs React Lymphs (Man) 0.0 K/mm3 03/28/20 10:28 Monocytes # (Manual) 1.2 K/mm3 (0.0-0.8) H 03/28/20 10:28 Eosinophils # (Manual) 0.0 K/mm3 (0.0-0.4) 03/28/20 10:28 Basophils # (Manual) 0.2 K/mm3 (0.0-0.1) H 03/28/20 10:28 Metamyelocytes # 0.0 K/mm3 03/28/20 10:28 Myelocytes # 0.0 K/mm3 03/28/20 10:28 Promyelocytes # 0.0 K/mm3 03/28/20 10:28 Blast Cells # 0.0 K/mm3 03/28/20 10:28 WBC Morphology Not Reportable 03/28/20 10:28 Hypersegmented Neuts Not Reportable 03/28/20 10:28 Hyposegmented Neuts Not Reportable 03/28/20 10:28 Hypogranular Neuts Not Reportable 03/28/20 10:28 Smudge Cells Not Reportable 03/28/20 10:28 Toxic Granulation 1+ 03/28/20 10:28 Toxic Vacuolation Not Reportable 03/28/20 10:28 Dohle Bodies Not Reportable 03/28/20 10:28 Pelger-Huet Anomaly Not Reportable 03/28/20 10:28 Robert Rods Not Reportable 03/28/20 10:28 Platelet Estimate Consistent w auto 03/28/20 10:28 Clumped Platelets Not Reportable 03/28/20 10:28 Plt Clumps, EDTA Not Reportable 03/28/20 10:28 Large Platelets Not Reportable 03/28/20 10:28 Giant Platelets Not Reportable 03/28/20 10:28 Platelet Satelliting Not Reportable 03/28/20 10:28 Plt Morphology Comment Not Reportable 03/28/20 10:28 RBC Morphology Not Reportable 03/28/20 10:28 Dimorphic RBCs Not Reportable 03/28/20 10:28 Polychromasia Not Reportable 03/28/20 10:28 Hypochromasia Not Reportable 03/28/20 10:28 Poikilocytosis Not Reportable 03/28/20 10:28 Anisocytosis 1+ 03/28/20 10:28 Microcytosis Not Reportable 03/28/20 10:28 Macrocytosis Not Reportable 03/28/20 10:28 Spherocytes Not Reportable 03/28/20 10:28 Pappenheimer Bodies Not Reportable 03/28/20 10:28 Sickle Cells Not Reportable 03/28/20 10:28 Target Cells Not Reportable 03/28/20 10:28 Tear Drop Cells Not Reportable 03/28/20 10:28 Ovalocytes Not Reportable 03/28/20 10:28 Stomatocytes Few 03/17/20 04:40 Helmet Cells Not Reportable 03/28/20 10:28 [place] Bodies Not Reportable 03/28/20 10:28 Farnsworth Rings Not Reportable 03/28/20 10:28 Parmele Cells Not Reportable 03/28/20 10:28 Bite Cells Not Reportable 03/28/20 10:28 Crenated Cell Not Reportable 03/28/20 10:28 Elliptocytes Not Reportable 03/28/20 10:28 Acanthocytes (Spur) Not Reportable 03/28/20 10:28 Rouleaux Not Reportable 03/28/20 10:28 Hemoglobin C Crystals Not Reportable 03/28/20 10:28 Schistocytes Not Reportable 03/28/20 10:28 Malaria parasites Not Reportable 03/28/20 10:28 Colton Bodies Not Reportable 03/28/20 10:28 Hem Pathologist Commnt No 03/28/20 10:28 PT 15.6 Sec. (12.2-14.9) H 02/24/20 09:19 INR 1.21 (0.87-1.13) H 02/24/20 09:19 APTT 25.4 Sec. (24.2-36.6) 02/24/20 09:19 D-Dimer 1311.96 ng/mlDDU (0-234) H 02/24/20 09:19 ABG pH 7.371 (7.320-7.450) 03/08/20 12:34 POC ABG pCO2 63.1 mmHg (32.0-48.0) H 03/08/20 12:34 ABG pCO2 60.1 mm Hg 03/06/20 04:34 POC ABG pO2 90.5 mmHg (83-108) 03/08/20 12:34 ABG pO2 88.6 mm Hg (80.0-90.0) 03/06/20 04:34 POC ABG HCO3 35.7 03/08/20 12:34 ABG HCO3 37.9 mmol/L (20.0-26.0) H 03/06/20 04:34 ABG O2 Saturation 97.0 % (95.0-99.0) 03/06/20 04:34 ABG O2 Content 14.3 (0.0-44) 03/06/20 04:34 POC ABG Base Excess 8.7 03/08/20 12:34 ABG Base Excess 11.4 mmol/L (-2.0-3.0) H 03/06/20 04:34 ABG Hemoglobin 10.9 (12.0-17.5) L 03/08/20 12:34 ABG Oxyhemoglobin 95.9 (94-98) 03/08/20 12:34 ABG Carboxyhemoglobin 1.7 % (0.0-5.0) 03/06/20 04:34 ABG Methemoglobin 0.3 (0.0-1.5) 03/08/20 12:34 ABG Sodium 143.6 mmol/L (136.0-145.0) 03/08/20 12:34 ABG Potassium 3.8 mmol/L (3.40-4.50) 03/08/20 12:34 ABG Chloride 102.0 mmol/L (98-107) 03/08/20 12:34 ABG Glucose 176 mg/dL (65-95) H 03/08/20 12:34 Oxyhemoglobin 94.7 % (95.0-99.0) L 03/06/20 04:34 Carboxyhemoglobin 0.7 (0.5-1.5) 03/08/20 12:34 FiO2 30 03/08/20 12:34 Sodium 133 mmol/L (137-145) L 03/30/20 14:47 Potassium 4.7 mmol/L (3.6-5.0) 03/30/20 14:47 Chloride 94.6 mmol/L (98-107) L 03/30/20 14:47 Carbon Dioxide 33 mmol/L (22-30) H 03/30/20 14:47 Anion Gap 10 mmol/L 03/30/20 14:47 BUN 16 mg/dL (9-20) 03/30/20 14:47 Creatinine < 0.2 mg/dL (0.8-1.3) L 03/30/20 14:47 Estimated GFR > 60 ml/min 03/30/20 14:47 BUN/Creatinine Ratio 80 % 03/30/20 14:47 Glucose 194 mg/dL (75-100) H 03/30/20 14:47 POC Glucose 122 mg/dL (70-105) H 04/11/20 11:46 Lactic Acid 1.00 mmol/L (0.7-2.0) 02/24/20 12:07 Calcium 9.1 mg/dL (8.4-10.2) 03/30/20 14:47 Phosphorus 3.30 mg/dL (2.5-4.5) 03/29/20 14:35 Magnesium 2.00 mg/dL (1.7-2.3) 03/29/20 14:35 Ferritin 1715.0 ng/mL (30.0-300.0) H 02/24/20 10:01 Total Bilirubin 0.40 mg/dL (0.1-1.2) 03/30/20 14:47 AST 22 units/L (5-40) 03/30/20 14:47 ALT 16 units/L (7-56) 03/30/20 14:47 Alkaline Phosphatase 78 units/L (35-129) 03/30/20 14:47 Lactate Dehydrogenase 303 units/L (91-180) H 02/24/20 09:19 Total Creatine Kinase 47 units/L (55-170) L 03/28/20 17:17 CK-MB (CK-2) 2.2 ng/mL (0.0-4.0) 03/28/20 17:17 CK-MB (CK-2) Rel Index 4.6 (0-4) H 03/28/20 17:17 Troponin T 0.090 ng/mL (0.00-0.029) H 03/28/20 17:17 C-Reactive Protein 4.70 mg/dL (0.00-1.30) H 02/28/20 11:05 NT-Pro-B Natriuret Pep 48.30 pg/mL (0-900) 02/24/20 09:19 Total Protein 7.7 g/dL (6.3-8.2) 03/30/20 14:47 Albumin 2.8 g/dL (3.9-5) L 03/30/20 14:47 Albumin/Globulin Ratio 0.6 % 03/30/20 14:47 Prealbumin 0.090 g/L (0.200-0.400) L 02/28/20 12:54 Triglycerides 34 mg/dL (2-149) 03/22/20 18:00 Cholesterol 104 mg/dL (50-199) 03/22/20 18:00 LDL Cholesterol Direct 54 mg/dL (50-130) 03/22/20 18:00 HDL Cholesterol 40 mg/dL (40-59) 03/22/20 18:00 Cholesterol/HDL Ratio 2.60 % 03/22/20 18:00 Procalcitonin < 0.05 ng/mL (<0.15) 03/28/20 17:12 Arterial Blood Glucose 176 mg/dL (65-95) H 03/08/20 12:34 Arterial Blood Ionized Calcium 4.5 mg/dL (4.6-5.3) L 03/08/20 12:34 Urine Color Yellow (Yellow) 03/28/20 11:36 Urine Turbidity Hazy (Clear) 03/28/20 11:36 Urine pH 5.0 (5.0-7.0) 03/28/20 11:36 Ur Specific [place] 1.026 (1.003-1.030) 03/28/20 11:36 Urine Protein 100 mg/dl mg/dL (Negative) 03/28/20 11:36 Urine Glucose (UA) Neg mg/dL (Negative) 03/28/20 11:36 Urine Ketones Neg mg/dL (Negative) 03/28/20 11:36 Urine Blood Neg (Negative) 03/28/20 11:36 Urine Nitrite Neg (Negative) 03/28/20 11:36 Urine Bilirubin Neg (Negative) 03/28/20 11:36 Urine Urobilinogen 4.0 mg/dL (<2.0) 03/28/20 11:36 Ur Leukocyte Esterase Mod (Negative) 03/28/20 11:36 Urine WBC (Auto) 39.0 /HPF (0.0-6.0) H 03/28/20 11:36 Urine RBC (Auto) 16.0 /HPF (0.0-6.0) 03/28/20 11:36 U Epithel Cells (Auto) < 1.0 /HPF (0-13.0) 03/08/20 08:57 Urine Bacteria (Auto) 2+ /HPF (Negative) 03/28/20 11:36 Urine Mucus 3+ /HPF 03/28/20 11:36 Urine Yeast (Budding) 2+ /HPF 03/28/20 11:36 Vancomycin Trough 8.0 ug/mL (5.0-20.0) 03/04/20 08:59 Coronavirus (PCR) Negative (Negative) 02/25/20 09:03 - Diagnostic Impressions Diagnostic Impressions: Echocardiogram 02/26/20 10:41 Transthoracic Echocardiogram Indication: Elevated Trop BP: 116/75 HR: 85 Conclusions *Global left ventricular wall motion and contractility are within normal limits. *The estimated ejection fraction is 50-55%. *Abnormal left ventricular diastolic filling is observed, consistent with impaired relaxation. *There is no pericardial effusion. Findings Left Ventricle: The left ventricular chamber size is normal. Global left ventricular wall motion and contractility are within normal limits. Global left ventricular systolic function is normal. The estimated ejection fraction is 50-55%. Abnormal left ventricular diastolic filling is observed, consistent with impaired relaxation. Left Atrium: The left atrial chamber size is normal. Right Ventricle: The right ventricular cavity size is normal. Right Atrium: The right atrial cavity size is normal. Aortic Valve: Mild aortic leaflet calcification is visualized. There is no evidence of aortic regurgitation. Mitral Valve: The mitral valve leaflets are mildly thickened. There is no evidence of mitral regurgitation. Tricuspid Valve: The tricuspid valve leaflets are normal. There is trace tricuspid regurgitation. The right ventricular systolic pressure is calculated at 29 mmHg. Pulmonic Valve: The pulmonic valve is not well visualized. Pericardium: There is no pericardial effusion. Aorta: The aorta appears normal. Venous: The inferior vena cava is dilated. There is less than 50% respiratory change in the inferior vena cava dimension. Measurements Chambers 2D Name Value Normal Range IVSd (2D) 0.97 cm (0.6 - 1.1) LVPWd (2D) 0.93 cm (0.6 - 1.1) LVIDd (2D) 4 cm (3.7 - 5.6) LVIDs (2D) 2.73 cm (2 - 3.8) LV FS (2D) 31.67 % - EF Teichholz (2D) 60.23 % - Ao root diameter (2D) 3.51 cm (2 - 3.7) Volumes/Mass Name Value Normal Range LA ESV SP 4CH (A/L) 8.43 ml - LA ESV SP 2CH (A/L) 18.89 ml - LA ESV BP (A/L) 13.02 ml - LA ESV BP (A/L) index 8.8 ml/m2 - LA ESV SP 4CH (MOD) 7.22 ml - LA ESV SP 2CH (MOD) 18.15 ml - LA ESV BP (MOD) 11.47 ml - LA ESV BP (MOD) index 7.75 ml/m2 - Diastolic/Systolic Function Name Value Normal Range MV E-wave Vmax 0.51 m/sec - MV deceleration time 180.22 msec - MV A-wave Vmax 0.62 m/sec - MV E:A ratio 0.82 ratio - Aortic Valve Name Value Normal Range AV Vmax 1.17 m/sec - AV VTI 19.71 cm - AV peak gradient 5.44 mmHg - AV mean gradient 3.38 mmHg - LVOT diameter 2.26 cm - LVOT Vmax 0.89 m/sec - LVOT VTI 13.72 cm - LVOT peak gradient 3.17 mmHg - LVOT mean gradient 1.67 mmHg - SV LVOT 55.03 ml - SHARAD (continuity Vmax) 3.06 cm2 - SHARAD (continuity VTI) 2.79 cm2 - Tricuspid Valve Name Value Normal Range TR Vmax 2.3 m/sec - TR peak gradient 21 mmHg - RAP 8 mmHg - RVSP 29 mmHg - IVC diameter 2.59 cm (1.2 - 2.3) Pulmonic Valve/Qp:Qs Name Value Normal Range PV acceleration time 68.51 msec - Reardon/IV: Voiding Method Indwelling Catheter IV Catheter Type [Left Hand] Peripheral IV IV Catheter Type [Right Hand] Peripheral IV IV Catheter Type [Left Wrist] Peripheral IV IV Catheter Type [Right Peripheral IV Forearm] IV Catheter Type [Right Triple Lumen Cath Internal Jugular] IV Catheter Type [Left Forearm INT / Saline Lock ] IV Catheter Type [Right Triple Lumen Cath Femoral] IV Catheter Type [Right INT / Saline Lock Antecubital] Active Medications - Current Medications Current Medications: Generic Name Dose Route Start Last Admin Trade Name Freq PRN Reason Stop Dose Admin Acetaminophen 650 mg 02/24/20 15:13 04/08/20 16:00 Tylenol PO 650 mg Q4H PRN Administration Pain, Mild (1-3) Albuterol 2.5 mg 02/24/20 15:13 Proventil IH Q4HRT PRN Shortness Of Breath Alprazolam 0.5 mg 03/30/20 14:19 04/11/20 02:14 Xanax PO 0.5 mg Q8H PRN Administration Anxiety Lipase/Protease/Amylase 1 each 02/26/20 11:[address] 10,500 Unit FEEDTUBE PRN PRN For Clogged Feeding Tube Baclofen 10 mg 04/03/20 12:00 04/11/20 09:20 Lioresal PO 10 mg BID ALISA Administration Bisacodyl 10 mg 03/12/20 18:00 03/15/20 17:50 Bisacodyl 10 Mg Rect Supp IL 10 mg QDAY PRN Administration Bowel Movement Docusate Sodium 100 mg 04/03/20 12:00 04/11/20 09:18 Colace FEEDTUBE 100 mg BID ALISA Administration Enoxaparin Sodium 40 mg 03/20/20 22:00 04/10/20 22:15 Enoxaparin SUB-Q 40 mg QDAY@2200 ALISA Administration Protocol Glycopyrrolate 2 mg 03/26/20 08:00 04/11/20 09:19 Robinul PO 2 mg TID ALISA Administration Lansoprazole 30 mg 02/28/20 10:00 04/11/20 09:19 Prevacid Solutab FEEDTUBE 30 mg QDAY ALISA Administration Lidocaine 1 each 03/31/20 10:00 04/11/20 09:21 Lidoderm 5% TD 1 each QDAY ALISA Administration Metoprolol Tartrate 12.5 mg 02/24/20 22:00 04/11/20 09:22 Metoprolol PO Not Given BID [facility] Morphine Sulfate 2 mg 02/29/20 16:42 04/11/20 09:26 Morphine IV 2 mg Q4H PRN Administration Pain, Moderate (4-6) Pregabalin 150 mg 04/03/20 12:00 04/11/20 09:20 Pregabalin PO 150 mg BID ALISA Administration Scopolamine 1 each 03/03/20 14:00 04/11/20 09:19 Transderm-Scop TD 1 each Q3D ALISA Administration Senna 17.2 mg 04/03/20 22:00 04/10/20 22:17 Senokot PO 17.2 mg QHS ALISA Administration Simple Syrup 15 ml 02/26/20 11:16 Simple Syrup FEEDTUBE PRN PRN Hypoglycemia Simple Syrup 30 ml 02/26/20 11:16 Simple Syrup FEEDTUBE PRN PRN Hypoglycemia Sodium Bicarbonate 325 mg 02/26/20 11:16 Sodium Bicarbonate FEEDTUBE PRN PRN For Clogged Feeding Tube Sodium Hypochlorite 1 applic 03/31/20 13:00 04/11/20 09:21 Dakin's Half Strength TP 1 applicatio BID ALISA Administration Tamsulosin HCl 0.4 mg 03/09/20 18:00 04/11/20 09:20 Tamsulosin 0.4 Mg Cap PO 0.4 mg QDAY ALISA Administration Zolpidem Tartrate 10 mg 03/31/20 20:15 04/10/20 22:19 Ambien PO 10 mg QHS PRN Administration Sleep Nutrition/Malnutrition Assess - Dietary Evaluation Nutrition/Malnutrition Findings: Nutrition Notes Start: 02/26/20 10:40 Freq: Status: Active Protocol: Document 04/04/20 12:26 AB (Rec: 04/04/20 12:35 AB [id number]) Co-Sign 04/04/20 12:26 LM Nutrition Notes Initial or Follow up Reassessment Current Diagnosis Decubitus(Pressure Ulcer), Sepsis,Respiratory Failure Other Pertinent Diagnosis COVID-19 (-), ALS, pneumonia, Hip/buttock PU Current Diet Vital AF 1.2 at 75ml/hr (goal rate) Labs/Tests Reviewed Pertinent Medications Reviewed Height 6 ft Weight 65.8 kg [place] Body Weight (kg) 80.90 BMI 19.6 Weight Status Appropriate Subjective/Other Information F/U for TF tolerance. TF is running at goal and pt is tolerating it. Pt had BM over night, per nurse. Percent of energy/protein needs met: 100%/100% Burn Absent Trauma Absent GI Symptoms None Skin Integrity/Comment Pressure Ulcer Stage 2 Current % PO Negligible Minimum of two criteria Yes Body Fat Depletion Mild depletion (non-severe) Muscle Mass Mild Depletion (non-severe) Reduced Nuclear Radiation Engineer Strength Measurably Reduced (severe) #3 Nutrition Diagnosis Malnutrition Diagnosis Progress(for reassessment Continues documentation) #2 Nutrition Diagnosis Inadequate oral intake Diagnosis Progress(for reassessment Continues documentation) #1 Nutrition Diagnosis Increased nutrient needs ( specify in comment below) Diagnosis Progress(for reassessment Continues documentation) Is patient on ventilator? Yes Is Patient Ambulatory and/or Out of Bed No REE-([facility]-confined to bed) 1818.072 Kcal/Kg value to use for calculation 35 Approximate Energy Requirements Using 2303 kcal/Kg Calculation Used for Recommendations Kcal/kg Additional Notes Protein needs: 88-147 g (1.2-2 g/ kg ABW) Fluid: 1ml/kcal Nutrition Intervention Change Diet Order: Continue TF Nutrition Support: Vital AF 1.2 at 75ml/hr. Flush 200ml q4h For hyponatremia, flush 150 mL q4h Kcal 2,160 Protein (gm) 135 Fluid (mL) 1,460 Add Supplement/Snack (indicate name/kcal Will BID /protein ) Provides kCal: 190 Provides Protein (gm) 5 Goal #1 Meet at least 80% of energy and protein needs via TF Goal #2 Wound healing Anticipated Discharge Needs: Unable to determine at this time Follow-Up By: 04/11/20 Additional Comments F/U for TF tolerance
[2020-04-11] MEDS: ENOXAPARIN 40 MG/0.4 ML INJ SUB-Q SCH (21:20)
[2020-04-11] MEDS: ZOLPIDEM 5 MG TAB PO PRN (21:20)
[2020-04-11] MEDS: SENNOSIDES 8.6 MG TAB PO SCH (21:20)
[2020-04-12] MEDS: ALPRAZolam 0.5 MG TAB PO PRN ×3 (04:07→22:33)
[2020-04-12] MEDS: MORPHINE 2 MG/1 ML INJ IV PRN ×4 (04:08→22:33)
--- NOTE | 2020-04-12 08:52 | Progress Note ---
Assessment and Plan Assessment and plan: --Constipation; Patient already received Dulcolax suppository and Colace If no relief, we will try milk of magnesia, enema as needed --Acute hypoxic hypercapnic respiratory failure; Tracheostomy on ventilatory support Wean as tolerated, continue supportive care Pulmonary following --History of ALS - Stable --Elevated D-dimers; CTA chest, lower extremity venous Doppler both are negative Lovenox DVT prophylaxis --Bilateral pneumonia; probably community-acquired Completed the treatment, continue supportive care --Sepsis secondary to pneumonia; completed the treatment resolved --Elevated troponin non-ST elevation CO type II Continue current management --Febrile illness; secondary to pneumonia Complete antibiotics , resolved --DVT prophylaxis; Lovenox. We will closely monitor the patient and adjust management as needed Plan of care reviewed with the patient's nurse The high probability OF a clinically significant sudden or life-threatening deterioration of the cardiorespiratory system and endocrine system required my full and direct attention, intervention and postoperative management. The aggregate critical care time was 32 minutes. The time is in addition to time spent performing reported procedures but includes the followin: Data review and interpretation 2: Patient assessment and monitoring of vital signs 3: Documentation 4:: Medication orders and management 03/28. Had temp 100.7F. He has been off antibiotics. Will send blood culture, ua, urine culture and chest xray. Had chest pain overnight and trop was elevated as well. Cardiology to evaluate 03/29. Has back pain due to position. He mentions his chest pain is positional. Has no other complaints. Still on mechanical ventilation 03/30. No chest pain today. Labs reviewed. Discussed chest pain with cardiology and team advised no further work up at this time. Can follow up with cardiology in the office after hospitalization 03/31. Lidocaine patch for lower back pain. 04/01. Discharge planning underway. MESERET notes reviewed. Discussed with daughter 04/02 - . CM trying to arrange discharge. Continue PSV trials. Discussed with patients significant other 04/04/2020; CM is working for discharge arrangement. Continue PSV trials. 04/05/2020; patient was seen and evaluated this morning and no change from baseline. Continue with PSV trials. Follow with preschool special education teacher for discharge planning. 04/06/2020;patient was seen and evaluated this morning and no change from baseline. Continue with PSV trials. Follow with preschool special education teacher for discharge planning. 04/07/2020; patient was seen and evaluated this morning and no change from baseline. Continue with PSV trials. Follow with preschool special education teacher for discharge antwan barlow. 04/08/2020; patient is vent dependent. Discharge is per preschool special education teacher. 04/09/2020 patient is vent dependent, possible LTAC placement 04/10/2020; tracheostomy on vent, vent dependent pending LTAC placement 04/11/2020; clinically no change, tracheostomy on ventilatory support, wean as tolerated, awaiting placement 04/12/2020; remains on ventilatory support, unable to wean, patient wants to see a speech therapist for sound box However we cannot try that as long as he is on ventilatory support, once he is weaned off vent We will consult speech therapist, plan of care reviewed with the patient and his nurse History Interval history: I have seen and examined the patient at the bedside today in [facility] No new overnight events reported by the nursing staff Tracheostomy remains on ventilatory support unable to wean Nurse reports that patient has constipation of 3 to 4 days No nausea vomiting Vital signs noted Hospitalist Physical - Constitutional Vitals: Temp Pulse Resp BP Pulse Ox 98.1 F 118 H 21 114/77 98 04/12/20 08:00 04/12/20 07:30 04/12/20 07:30 04/12/20 07:30 04/12/20 07:30 General appearance: Present: no acute distress, cachectic, disheveled, other (Cachectic, tracheostomy on vent) - EENT Eyes: Present: PERRL, EOM intact ENT: other (Trach tube in place on vent) - Neck Neck: Present: supple, normal ROM - Respiratory Respiratory effort: normal Respiratory: bilateral: diminished, rhonchi, negative: rales, wheezing - Cardiovascular Rhythm: regular Heart Sounds: Present: S1 & S2 - Extremities Extremities: no ischemia, pulses intact, No edema - Abdominal General gastrointestinal: soft, non-tender, non-distended, normal bowel sounds, other (PEG tube in place) - Integumentary Integumentary: Present: clear, warm - Psychiatric Psychiatric: appropriate mood/affect, other (Alert and awake trying to talk) - Neurologic Neurologic: other (Residual deficit) HEART Score - HEART Score Troponin: Troponin T 0.090 ng/mL (0.00-0.029) H 03/28/20 17:17 Results - Labs CBC & Chem 7: 03/30/20 14:47 03/30/20 14:47 Labs: Laboratory Last Values WBC 19.9 K/mm3 (4.5-11.0) H 03/30/20 14:47 RBC 4.01 M/mm3 (3.65-5.03) 03/30/20 14:47 Hgb 10.9 gm/dl (11.8-15.2) L 03/30/20 14:47 Hct 34.4 % (35.5-45.6) L 03/30/20 14:47 MCV 86 fl (84-94) 03/30/20 14:47 MCH 27 pg (28-32) L 03/30/20 14:47 MCHC 32 % (32-34) 03/30/20 14:47 RDW 16.5 % (13.2-15.2) H 03/30/20 14:47 Plt Count 441 K/mm3 (140-440) H 03/30/20 14:47 Lymph % (Auto) 6.4 % (13.4-35.0) L 03/30/20 14:47 [place] % (Auto) 7.2 % (0.0-7.3) 03/30/20 14:47 Eos % (Auto) 0.1 % (0.0-4.3) 03/30/20 14:47 Baso % (Auto) 0.2 % (0.0-1.8) 03/30/20 14:47 Lymph # (Auto) 1.3 K/mm3 (1.2-5.4) 03/30/20 14:47 Haralson # (Auto) 1.4 K/mm3 (0.0-0.8) H 03/30/20 14:47 Eos # (Auto) 0.0 K/mm3 (0.0-0.4) 03/30/20 14:47 Baso # (Auto) 0.0 K/mm3 (0.0-0.1) 03/30/20 14:47 Add Manual Diff Complete 03/28/20 10:28 Total Counted 100 03/28/20 10:28 Seg Neutrophils % 86.1 % (40.0-70.0) H 03/30/20 14:47 Seg Neuts % (Manual) 89.0 % (40.0-70.0) H 03/28/20 10:28 Band Neutrophils % 0 % 03/28/20 10:28 Lymphocytes % (Manual) 5.0 % (13.4-35.0) L 03/28/20 10:28 Reactive Lymphs % (Man) 0 % 03/28/20 10:28 Monocytes % (Manual) 5.0 % (0.0-7.3) 03/28/20 10:28 Eosinophils % (Manual) 0 % (0.0-4.3) 03/28/20 10:28 Basophils % (Manual) 1.0 % (0.0-1.8) 03/28/20 10: Metamyelocytes % 0 % 03/28/20 10: Myelocytes % 0 % 03/28/20 10: Promyelocytes % 0 % 03/28/20 10: Blast Cells % 0 % 03/28/20 10: Nucleated RBC % Not Reportable 03/28/20 10:28 Seg Neutrophils # 17.1 K/mm3 (1.8-7.7) H 03/30/20 14:47 Seg Neutrophils # Man 21.0 K/mm3 (1.8-7.7) H 03/28/20 10:28 Band Neutrophils # 0.0 K/mm3 03/28/20 10:28 Lymphocytes # (Manual) 1.2 K/mm3 (1.2-5.4) 03/28/20 10:28 Abs React Lymphs (Man) 0.0 K/mm3 03/28/20 10:28 Monocytes # (Manual) 1.2 K/mm3 (0.0-0.8) H 03/28/20 10:28 Eosinophils # (Manual) 0.0 K/mm3 (0.0-0.4) 03/28/20 10:28 Basophils # (Manual) 0.2 K/mm3 (0.0-0.1) H 03/28/20 10:28 Metamyelocytes # 0.0 K/mm3 03/28/20 10:28 Myelocytes # 0.0 K/mm3 03/28/20 10:28 Promyelocytes # 0.0 K/mm3 03/28/20 10:28 Blast Cells # 0.0 K/mm3 03/28/20 10:28 WBC Morphology Not Reportable 03/28/20 10:28 Hypersegmented Neuts Not Reportable 03/28/20 10:28 Hyposegmented Neuts Not Reportable 03/28/20 10:28 Hypogranular Neuts Not Reportable 03/28/20 10:28 Smudge Cells Not Reportable 03/28/20 10:28 Toxic Granulation 1+ 03/28/20 10:28 Toxic Vacuolation Not Reportable 03/28/20 10:28 Dohle Bodies Not Reportable 03/28/20 10:28 Pelger-Huet Anomaly Not Reportable 03/28/20 10:28 Robert Rods Not Reportable 03/28/20 10:28 Platelet Estimate Consistent w auto 03/28/20 10:28 Clumped Platelets Not Reportable 03/28/20 10:28 Plt Clumps, EDTA Not Reportable 03/28/20 10:28 Large Platelets Not Reportable 03/28/20 10:28 Giant Platelets Not Reportable 03/28/20 10:28 Platelet Satelliting Not Reportable 03/28/20 10:28 Plt Morphology Comment Not Reportable 03/28/20 10:28 RBC Morphology Not Reportable 03/28/20 10:28 Dimorphic RBCs Not Reportable 03/28/20 10:28 Polychromasia Not Reportable 03/28/20 10:28 Hypochromasia Not Reportable 03/28/20 10:28 Poikilocytosis Not Reportable 03/28/20 10:28 Anisocytosis 1+ 03/28/20 10:28 Microcytosis Not Reportable 03/28/20 10:28 Macrocytosis Not Reportable 03/28/20 10:28 Spherocytes Not Reportable 03/28/20 10:28 Pappenheimer Bodies Not Reportable 03/28/20 10:28 Sickle Cells Not Reportable 03/28/20 10:28 Target Cells Not Reportable 03/28/20 10:28 Tear Drop Cells Not Reportable 03/28/20 10:28 Ovalocytes Not Reportable 03/28/20 10:28 Stomatocytes Few 03/17/20 04:40 Helmet Cells Not Reportable 03/28/20 10:28 [place] Bodies Not Reportable 03/28/20 10:28 [place] Rings Not Reportable 03/28/20 10:28 Riaz Cells Not Reportable 03/28/20 10:28 Bite Cells Not Reportable 03/28/20 10:28 Crenated Cell Not Reportable 03/28/20 10:28 Elliptocytes Not Reportable 03/28/20 10:28 Acanthocytes (Spur) Not Reportable 03/28/20 10:28 Rouleaux Not Reportable 03/28/20 10:28 Hemoglobin C Crystals Not Reportable 03/28/20 10:28 Schistocytes Not Reportable 03/28/20 10:28 Malaria parasites Not Reportable 03/28/20 10:28 Colton Bodies Not Reportable 03/28/20 10:28 Hem Pathologist Commnt No 03/28/20 10:28 PT 15.6 Sec. (12.2-14.9) H 02/24/20 09:19 INR 1.21 (0.87-1.13) H 02/24/20 09:19 APTT 25.4 Sec. (24.2-36.6) 02/24/20 09:19 D-Dimer 1311.96 ng/mlDDU (0-234) H 02/24/20 09:19 ABG pH 7.371 (7.320-7.450) 03/08/20 12:34 POC ABG pCO2 63.1 mmHg (32.0-48.0) H 03/08/20 12:34 ABG pCO2 60.1 mm Hg 03/06/20 04:34 POC ABG pO2 90.5 mmHg (83-108) 03/08/20 12:34 ABG pO2 88.6 mm Hg (80.0-90.0) 03/06/20 04:34 POC ABG HCO3 35.7 03/08/20 12:34 ABG HCO3 37.9 mmol/L (20.0-26.0) H 03/06/20 04:34 ABG O2 Saturation 97.0 % (95.0-99.0) 03/06/20 04:34 ABG O2 Content 14.3 (0.0-44) 03/06/20 04:34 POC ABG Base Excess 8.7 03/08/20 12:34 ABG Base Excess 11.4 mmol/L (-2.0-3.0) H 03/06/20 04:34 ABG Hemoglobin 10.9 (12.0-17.5) L 03/08/20 12:34 ABG Oxyhemoglobin 95.9 (94-98) 03/08/20 12:34 ABG Carboxyhemoglobin 1.7 % (0.0-5.0) 03/06/20 04:34 ABG Methemoglobin 0.3 (0.0-1.5) 03/08/20 12:34 ABG Sodium 143.6 mmol/L (136.0-145.0) 03/08/20 12:34 ABG Potassium 3.8 mmol/L (3.40-4.50) 03/08/20 12:34 ABG Chloride 102.0 mmol/L (98-107) 03/08/20 12:34 ABG Glucose 176 mg/dL (65-95) H 03/08/20 12:34 Oxyhemoglobin 94.7 % (95.0-99.0) L 03/06/20 04:34 Carboxyhemoglobin 0.7 (0.5-1.5) 03/08/20 12:34 FiO2 30 03/08/20 12:34 Sodium 133 mmol/L (137-145) L 03/30/20 14:47 Potassium 4.7 mmol/L (3.6-5.0) 03/30/20 14:47 Chloride 94.6 mmol/L (98-107) L 03/30/20 14:47 Carbon Dioxide 33 mmol/L (22-30) H 03/30/20 14:47 Anion Gap 10 mmol/L 03/30/20 14:47 BUN 16 mg/dL (9-20) 03/30/20 14:47 Creatinine < 0.2 mg/dL (0.8-1.3) L 03/30/20 14:47 Estimated GFR > 60 ml/min 03/30/20 14:47 BUN/Creatinine Ratio 80 % 03/30/20 14:47 Glucose 194 mg/dL (75-100) H 03/30/20 14:47 POC Glucose 104 mg/dL (70-105) 04/12/20 05:39 Lactic Acid 1.00 mmol/L (0.7-2.0) 02/24/20 12:07 Calcium 9.1 mg/dL (8.4-10.2) 03/30/20 14:47 Phosphorus 3.30 mg/dL (2.5-4.5) 03/29/20 14:35 Magnesium 2.00 mg/dL (1.7-2.3) 03/29/20 14:35 Ferritin 1715.0 ng/mL (30.0-300.0) H 02/24/20 10:01 Total Bilirubin 0.40 mg/dL (0.1-1.2) 03/30/20 14:47 AST 22 units/L (5-40) 03/30/20 14:47 ALT 16 units/L (7-56) 03/30/20 14:47 Alkaline Phosphatase 78 units/L (35-129) 03/30/20 14:47 Lactate Dehydrogenase 303 units/L (91-180) H 02/24/20 09:19 Total Creatine Kinase 47 units/L (55-170) L 03/28/20 17:17 CK-MB (CK-2) 2.2 ng/mL (0.0-4.0) 03/28/20 17:17 CK-MB (CK-2) Rel Index 4.6 (0-4) H 03/28/20 17:17 Troponin T 0.090 ng/mL (0.00-0.029) H 03/28/20 17:17 C-Reactive Protein 4.70 mg/dL (0.00-1.30) H 02/28/20 11:05 NT-Pro-B Natriuret Pep 48.30 pg/mL (0-900) 02/24/20 09:19 Total Protein 7.7 g/dL (6.3-8.2) 03/30/20 14:47 Albumin 2.8 g/dL (3.9-5) L 03/30/20 14:47 Albumin/Globulin Ratio 0.6 % 03/30/20 14:47 Prealbumin 0.090 g/L (0.200-0.400) L 02/28/20 12:54 Triglycerides 34 mg/dL (2-149) 03/22/20 18:00 Cholesterol 104 mg/dL (50-199) 03/22/20 18:00 LDL Cholesterol Direct 54 mg/dL (50-130) 03/22/20 18:00 HDL Cholesterol 40 mg/dL (40-59) 03/22/20 18:00 Cholesterol/HDL Ratio 2.60 % 03/22/20 18:00 Procalcitonin < 0.05 ng/mL (<0.15) 03/28/20 17:12 Arterial Blood Glucose 176 mg/dL (65-95) H 03/08/20 12:34 Arterial Blood Ionized Calcium 4.5 mg/dL (4.6-5.3) L 03/08/20 12:34 Urine Color Yellow (Yellow) 03/28/20 11:36 Urine Turbidity Hazy (Clear) 03/28/20 11:36 Urine pH 5.0 (5.0-7.0) 03/28/20 11:36 Ur Specific [place] 1.026 (1.003-1.030) 03/28/20 11:36 Urine Protein 100 mg/dl mg/dL (Negative) 03/28/20 11:36 Urine Glucose (UA) Neg mg/dL (Negative) 03/28/20 11:36 Urine Ketones Neg mg/dL (Negative) 03/28/20 11:36 Urine Blood Neg (Negative) 03/28/20 11:36 Urine Nitrite Neg (Negative) 03/28/20 11:36 Urine Bilirubin Neg (Negative) 03/28/20 11:36 Urine Urobilinogen 4.0 mg/dL (<2.0) 03/28/20 11:36 Ur Leukocyte Esterase Mod (Negative) 03/28/20 11:36 Urine WBC (Auto) 39.0 /HPF (0.0-6.0) H 03/28/20 11:36 Urine RBC (Auto) 16.0 /HPF (0.0-6.0) 03/28/20 11:36 U Epithel Cells (Auto) < 1.0 /HPF (0-13.0) 03/08/20 08:57 Urine Bacteria (Auto) 2+ /HPF (Negative) 03/28/20 11:36 Urine Mucus 3+ /HPF 03/28/20 11:36 Urine Yeast (Budding) 2+ /HPF 03/28/20 11:36 Vancomycin Trough 8.0 ug/mL (5.0-20.0) 03/04/20 08:59 Coronavirus (PCR) Negative (Negative) 02/25/20 09:03 - Diagnostic Impressions Diagnostic Impressions: Echocardiogram 02/26/20 10:41 Transthoracic Echocardiogram Indication: Elevated Trop BP: 116/75 HR: 85 Conclusions *Global left ventricular wall motion and contractility are within normal limits. *The estimated ejection fraction is 50-55%. *Abnormal left ventricular diastolic filling is observed, consistent with impaired relaxation. *There is no pericardial effusion. Findings Left Ventricle: The left ventricular chamber size is normal. Global left ventricular wall motion and contractility are within normal limits. Global left ventricular systolic function is normal. The estimated ejection fraction is 50-55%. Abnormal left ventricular diastolic filling is observed, consistent with impaired relaxation. Left Atrium: The left atrial chamber size is normal. Right Ventricle: The right ventricular cavity size is normal. Right Atrium: The right atrial cavity size is normal. Aortic Valve: Mild aortic leaflet calcification is visualized. There is no evidence of aortic regurgitation. Mitral Valve: The mitral valve leaflets are mildly thickened. There is no evidence of mitral regurgitation. Tricuspid Valve: The tricuspid valve leaflets are normal. There is trace tricuspid regurgitation. The right ventricular systolic pressure is calculated at 29 mmHg. Pulmonic Valve: The pulmonic valve is not well visualized. Pericardium: There is no pericardial effusion. Aorta: The aorta appears normal. Venous: The inferior vena cava is dilated. There is less than 50% respiratory change in the inferior vena cava dimension. Measurements Chambers 2D Name Value Normal Range IVSd (2D) 0.97 cm (0.6 - 1.1) LVPWd (2D) 0.93 cm (0.6 - 1.1) LVIDd (2D) 4 cm (3.7 - 5.6) LVIDs (2D) 2.73 cm (2 - 3.8) LV FS (2D) 31.67 % - EF Teichholz (2D) 60.23 % - Ao root diameter (2D) 3.51 cm (2 - 3.7) Volumes/Mass Name Value Normal Range LA ESV SP 4CH (A/L) 8.43 ml - LA ESV SP 2CH (A/L) 18.89 ml - LA ESV BP (A/L) 13.02 ml - LA ESV BP (A/L) index 8.8 ml/m2 - LA ESV SP 4CH (MOD) 7.22 ml - LA ESV SP 2CH (MOD) 18.15 ml - LA ESV BP (MOD) 11.47 ml - LA ESV BP (MOD) index 7.75 ml/m2 - Diastolic/Systolic Function Name Value Normal Range MV E-wave Vmax 0.51 m/sec - MV deceleration time 180.22 msec - MV A-wave Vmax 0.62 m/sec - MV E:A ratio 0.82 ratio - Aortic Valve Name Value Normal Range AV Vmax 1.17 m/sec - AV VTI 19.71 cm - AV peak gradient 5.44 mmHg - AV mean gradient 3.38 mmHg - LVOT diameter 2.26 cm - LVOT Vmax 0.89 m/sec - LVOT VTI 13.72 cm - LVOT peak gradient 3.17 mmHg - LVOT mean gradient 1.67 mmHg - SV LVOT 55.03 ml - SHARAD (continuity Vmax) 3.06 cm2 - SHARAD (continuity VTI) 2.79 cm2 - Tricuspid Valve Name Value Normal Range TR Vmax 2.3 m/sec - TR peak gradient 21 mmHg - RAP 8 mmHg - RVSP 29 mmHg - IVC diameter 2.59 cm (1.2 - 2.3) Pulmonic Valve/Qp:Qs Name Value Normal Range PV acceleration time 68.51 msec - Reardon/IV: Voiding Method Indwelling Catheter IV Catheter Type [Right Wrist] INT / Saline Lock IV Catheter Type [Left Hand] Peripheral IV IV Catheter Type [Right Hand] Peripheral IV IV Catheter Type [Left Wrist] Peripheral IV IV Catheter Type [Right Peripheral IV Forearm] IV Catheter Type [Right Triple Lumen Cath Internal Jugular] IV Catheter Type [Left Forearm INT / Saline Lock ] IV Catheter Type [Right Triple Lumen Cath Femoral] IV Catheter Type [Right INT / Saline Lock Antecubital] Active Medications - Current Medications Current Medications: Generic Name Dose Route Start Last Admin Trade Name Freq PRN Reason Stop Dose Admin Acetaminophen 650 mg 02/24/20 15:13 04/08/20 16:00 Tylenol PO 650 mg Q4H PRN Administration Pain, Mild (1-3) Albuterol 2.5 mg 02/24/20 15:13 Proventil IH Q4HRT PRN Shortness Of Breath Alprazolam 0.5 mg 03/30/20 14:19 04/12/20 04:07 Xanax PO 0.5 mg Q8H PRN Administration Anxiety Lipase/Protease/Amylase 1 each 02/26/20 11:16 Pancreedy Rubio 10,500 Unit FEEDTUBE PRN PRN For Clogged Feeding Tube Baclofen 10 mg 04/03/20 12:00 04/11/20 21:20 Lioresal PO 10 mg BID ALISA Administration Bisacodyl 10 mg 03/12/20 18:00 03/15/20 17:50 Bisacodyl 10 Mg Rect Supp DC 10 mg QDAY PRN Administration Bowel Movement Docusate Sodium 100 mg 04/03/20 12:00 04/11/20 21:20 Colace FEEDTUBE 100 mg BID ALISA Administration Enoxaparin Sodium 40 mg 03/20/20 22:00 04/11/20 21:20 Enoxaparin SUB-Q 40 mg QDAY@2200 ALISA Administration Protocol Glycopyrrolate 2 mg 03/26/20 08:00 04/11/20 20:56 Robinul PO 2 mg TID ALISA Administration Lansoprazole 30 mg 02/28/20 10:00 04/11/20 09:19 Prevacid Solutab FEEDTUBE 30 mg QDAY ALISA Administration Lidocaine 1 each 03/31/20 10:00 04/11/20 09:21 Lidoderm 5% TD 1 each QDAY ALISA Administration Metoprolol Tartrate 12.5 mg 02/24/20 22:00 04/11/20 21:23 Metoprolol PO Not Given BID [facility] Morphine Sulfate 2 mg 02/29/20 16:42 04/12/20 04:08 Morphine IV 2 mg Q4H PRN Administration Pain, Moderate (4-6) Pregabalin 150 mg 04/03/20 12:00 04/11/20 21:19 Pregabalin PO 150 mg BID ALISA Administration Scopolamine 1 each 03/03/20 14:00 04/11/20 09:19 Transderm-Scop TD 1 each Q3D ALISA Administration Senna 17.2 mg 04/03/20 22:00 04/11/20 21:20 Senokot PO 17.2 mg QHS ALISA Administration Simple Syrup 15 ml 02/26/20 11:16 Simple Syrup FEEDTUBE PRN PRN Hypoglycemia Simple Syrup 30 ml 02/26/20 11:16 Simple Syrup FEEDTUBE PRN PRN Hypoglycemia Sodium Bicarbonate 325 mg 02/26/20 11:16 Sodium Bicarbonate FEEDTUBE PRN PRN For Clogged Feeding Tube Sodium Hypochlorite 1 applic 03/31/20 13:00 04/11/20 21:37 Dakin's Half Strength TP 1 applicatio BID ALISA Administration Tamsulosin HCl 0.4 mg 03/09/20 18:00 04/11/20 09:20 Tamsulosin 0.4 Mg Cap PO 0.4 mg QDAY ALISA Administration Zolpidem Tartrate 10 mg 03/31/20 20:15 04/11/20 21:20 Ambien PO 10 mg QHS PRN Administration Sleep Nutrition/Malnutrition Assess - Dietary Evaluation Nutrition/Malnutrition Findings: Nutrition Notes Start: 02/26/20 10:40 Freq: Status: Active Protocol: Document 04/11/20 15:00 AB (Rec: 04/11/20 15:04 AB [id number]) Co-Sign 04/11/20 15:00 LM Nutrition Notes Initial or Follow up Reassessment Current Diagnosis Decubitus(Pressure Ulcer), Sepsis,Respiratory Failure Other Pertinent Diagnosis COVID-19 (-), ALS, pneumonia, Hip/buttock PU Current Diet Vital AF 1.2 at 75ml/hr (goal rate) Labs/Tests Reviewed Pertinent Medications Reviewed Height 6 ft Weight 63 kg [place] Body Weight (kg) 80.90 BMI 18.8 Weight Status Appropriate Subjective/Other Information F/U for TF tolerance. Per RN, pt is tolerating TF at goal rate. Per chart, pt had BM . Percent of energy/protein needs met: 100%/100% Burn Absent Trauma Absent GI Symptoms None Skin Integrity/Comment Pressure Ulcer Stage 2 Current % PO Negligible Minimum of two criteria Yes Body Fat Depletion Mild depletion (non-severe) Muscle Mass Mild Depletion (non-severe) Reduced Tube Skiver Strength Measurably Reduced (severe) #3 Nutrition Diagnosis Malnutrition Diagnosis Progress(for reassessment Continues documentation) #2 Nutrition Diagnosis Inadequate oral intake Diagnosis Progress(for reassessment Continues documentation) #1 Nutrition Diagnosis Increased nutrient needs ( specify in comment below) Diagnosis Progress(for reassessment Continues documentation) Is patient on ventilator? Yes Is Patient Ambulatory and/or Out of Bed No REE-([place]-confined to bed) 1784.508 Kcal/Kg value to use for calculation 37 Approximate Energy Requirements Using 2331 kcal/Kg Calculation Used for Recommendations Kcal/kg Additional Notes Protein needs: 88-147 g (1.2-2 g/ kg ABW) Fluid: 1ml/kcal Nutrition Intervention Change Diet Order: Continue TF Nutrition Support: Vital AF 1.2 at 75ml/hr. Flush 200ml q4h For hyponatremia, flush 150 mL q4h Kcal 2,160 Protein (gm) 135 Fluid (mL) 1,460 Add Supplement/Snack (indicate name/kcal Will BID /protein ) Provides kCal: 190 Provides Protein (gm) 5 Goal #1 Meet at least 80% of energy and protein needs via TF Goal #2 Wound healing Anticipated Discharge Needs: Unable to determine at this time Follow-Up By: 04/18/20 Additional Comments F/U for TF tolerance
[2020-04-12] MEDS: PREGABALIN 75 MG CAP PO SCH ×2 (09:11→21:05)
[2020-04-12] MEDS: TAMSULOSIN 0.4 MG CAP PO SCH (09:11)
[2020-04-12] MEDS: DOCUSATE SODIUM 100 MG/10 ML ORAL LIQD FEEDTUBE SCH ×2 (09:11→21:04)
[2020-04-12] MEDS: GLYCOPYRROLATE 1 MG TAB PO SCH ×3 (09:13→21:04)
[2020-04-12] MEDS: METOPROLOL TARTRATE 25 MG TAB PO SCH ×2 (09:15→21:09)
[2020-04-12] MEDS: BACLOFEN 10 MG TAB PO SCH ×2 (09:15→21:06)
[2020-04-12] MEDS: LANSOPRAZOLE 30 MG SOLUTAB FEEDTUBE SCH (09:26)
[2020-04-12] MEDS: SODIUM HYPOCHLORITE, DAKIN'S 1/2 STRENGTH (0.25%) 473 ML TOPICAL SOLN TP SCH ×2 (09:29→21:30)
[2020-04-12 09:44] LABS: Hematocrit 29.8 % (35.5-45.6); Hemoglobin 9.5 gm/dl (11.8-15.2); Mean Corpuscular HGB Conc 32 % (32-34); Mean Corpuscular Volume 83 fl (84-94); Platelet Count 591 K/mm3 (140-440); Red Blood Count 3.59 M/mm3 (3.65-5.03); Red Cell Distribution Width 16.6 % (13.2-15.2)
[2020-04-12 10:00] LABS: Alanine Aminotransferase 15 units/L (7-56); Albumin 2.7 g/dL (3.9-5); BUN/Creatinine Ratio 85; Blood Urea Nitrogen 17 mg/dL (9-20); Calcium 8.9 mg/dL (8.4-10.2); Hemolysis Index 1
[2020-04-12 10:59] LABS: Anisocytosis 1+; Large Platelets Few; Platelet Estimate Consistent w Auto; Total Cells Counted 100
[2020-04-12] MEDS: LIDOCAINE 5% 1 EACH PATCH TD SCH (13:12)
--- NOTE | 2020-04-12 14:03 | Progress Note ---
Assessment and Plan Patient sleeping. weak. Resting on assist control mechanical ventilation, rate 10, Tidal volume 400, FIO2 30%, PEEP 6 and O2 saturation running 100%. Patient was on pressure support for few hours. Continue spontaneous breathing trials as tolerated.Patient afebrile and has leukocytosis. Chest xray done 03/28/20 reported no acute findings. Patient guevara virus negative. I spent critical care time of 33 minutes, review the chart, examining the patient,Review chest xray, labs, talking to the nursing staff and respiratory therapist and work out plan of tratment in this critically ill patient. - Patient Problems (1) Acute on chronic respiratory failure with hypoxia and hypercapnia Current Visit: Yes Status: Acute Plan to address problem: Patient is on assist control mechanical ventilation, rate 10, tidal volume 400, FIO2 30%, PEEP 6. Albuterol inhaler 2 puffs po qid. Continue S/C Lovenox. Continue prevacid. Recommend to continue spontaneous breathing trials. (2) Bleeding from wound Current Visit: Yes Status: Acute Plan to address problem: Management primary care , surgery and wound care. (3) Elevated d-dimer Current Visit: Yes Status: Acute Plan to address problem: Patients venous doppler studies of legs, CTA chest reported Negative for VTE. Patient is on S/C Lovenox 40 mg qd. (4) Elevated troponin Current Visit: Yes Status: Acute Plan to address problem: Management as per primary care and cardiology (5) NSTEMI (non-ST elevated myocardial infarction) Current Visit: Yes Status: Acute Plan to address problem: Management as per cardiology. (6) Pneumonia Current Visit: Yes Status: Acute Qualifiers: Laterality: bilateral Plan to address problem: Patient was treated with ceftriaxone, zosyn and zithromax. Patient afebrile. Repeat chest xray 03/28/20 reported no acute fingings. Subjective Date of service: 04/12/20 Principal diagnosis: Ac on Ch Hypercapnic & hypoxemic Resp Failure; Severe Sepsis; Jamar PNA; ALS Interval history: Patient sleeping. weak. Resting on assist control mechanical ventilation, rate 1 0, Tidal volume 400, FIO2 30%, PEEP 6 and O2 saturation running 100%. Patient was on pressure support for few hours. Continue spontaneous breathing trials as tolerated.Patient afebrile and has leukocytosis. Chest xray done 03/28/20 reported no acute findings. Patient guevara virus negative. Objective Vital Signs - 12hr 04/12/20 04/12/20 04/12/20 02:15 02:30 02:45 Temperature Pulse Rate 101 H 110 H 107 H Respiratory 13 15 17 Rate Blood Pressure 108/71 109/71 112/72 O2 Sat by Pulse 99 99 99 Oximetry 04/12/20 04/12/20 04/12/20 03:00 03:15 03:30 Temperature Pulse Rate 106 H 106 H 110 H Respiratory 17 15 23 Rate Blood Pressure 104/76 107/72 109/72 O2 Sat by Pulse 98 100 Oximetry 04/12/20 04/12/20 04/12/20 03:45 04:00 04:02 Temperature 98.5 F Pulse Rate 108 H 112 H 111 H Respiratory 13 25 H Rate Blood Pressure 102/70 102/70 O2 Sat by Pulse 99 99 Oximetry 04/12/20 04/12/20 04/12/20 04:08 04:15 04:30 Temperature Pulse Rate 110 H 112 H Respiratory 20 22 20 Rate Blood Pressure 106/70 106/70 O2 Sat by Pulse 99 91 Oximetry 04/12/20 04/12/20 04/12/20 04:38 04:45 05:00 Temperature Pulse Rate 112 H 113 H Respiratory 20 13 13 Rate Blood Pressure 112/83 116/77 O2 Sat by Pulse 99 97 Oximetry 04/12/20 04/12/20 04/12/20 05:15 05:30 05:35 Temperature Pulse Rate 108 H 105 H 114 H Respiratory 12 15 Rate Blood Pressure 99/71 110/80 O2 Sat by Pulse 99 98 99 Oximetry 04/12/20 04/12/20 04/12/20 05:45 06:00 06:15 Temperature Pulse Rate 105 H 114 H 106 H Respiratory 13 20 12 Rate Blood Pressure 110/77 108/77 106/75 O2 Sat by Pulse 99 99 Oximetry 04/12/20 04/12/20 04/12/20 06:30 06:45 07:00 Temperature Pulse Rate 107 H 110 H 113 H Respiratory 11 L 11 L 18 Rate Blood Pressure 112/78 115/79 111/77 O2 Sat by Pulse 100 Oximetry 04/12/20 04/12/20 04/12/20 07:15 07:30 08:00 Temperature 98.1 F Pulse Rate 114 H 118 H Respiratory 20 21 Rate Blood Pressure 114/79 114/77 O2 Sat by Pulse 98 98 Oximetry 04/12/20 04/12/20 04/12/20 08:20 09:15 10:00 Temperature Pulse Rate 116 H 115 H Respiratory 22 Rate Blood Pressure 107/71 109/73 O2 Sat by Pulse 100 100 Oximetry 04/12/20 04/12/20 12:00 12:15 Temperature 99.0 F Pulse Rate 112 H Respiratory 22 Rate Blood Pressure O2 Sat by Pulse 100 Oximetry Constitutional: no acute distress, alert, other (thin middle aged male with normal respiratory effort at rest on MVS) Eyes: non-icteric ENT: oropharynx moist, other (S/P Tracheostomy) Neck: supple, no lymphadenopathy, no JVD Effort: mildly labored Ascultation: Bilateral: diminished breath sounds, wheezes, rhonchi Percussion: Bilateral: not dull Cardiovascular: regular rate and rhythm, other (S1,S2, no murmurs) Gastrointestinal: normoactive bowel sounds, soft, non-tender, non-distended, ot her (+ distended but non tender suprapubis) Integumentary: normal, decubitus ulcer (sacral / gluteal) Extremities: no cyanosis, no edema, pulses normal, other (atrophic looking limbs) Neurologic: pupils equal and round, other (motor strength in extremities 1-2/5, awake, alert, mouths words to make needs known) Psychiatric: depressed CBC and BMP: 04/12/20 09:07 04/12/20 09:07 ABG, PT/INR, D-dimer: ABG ABG pH 7.371 (7.320-7.450) 03/08/20 12:34 POC ABG pCO2 63.1 mmHg (32.0-48.0) H 03/08/20 12:34 ABG pCO2 60.1 mm Hg 03/06/20 04:34 POC ABG pO2 90.5 mmHg (83-108) 03/08/20 12:34 ABG pO2 88.6 mm Hg (80.0-90.0) 03/06/20 04:34 POC ABG HCO3 35.7 03/08/20 12:34 ABG O2 Saturation 97.0 % (95.0-99.0) 03/06/20 04:34 PT/INR, D-dimer PT 15.6 Sec. (12.2-14.9) H 02/24/20 09:19 INR 1.21 (0.87-1.13) H 02/24/20 09:19 D-Dimer 1311.96 ng/mlDDU (0-234) H 02/24/20 09:19 Abnormal lab findings: Abnormal Labs 02/24/20 02/24/20 02/24/20 09:19 09:19 09:19 WBC 20.2 H RBC 5.05 H Hgb Hct MCV MCH RDW 15.3 H Plt Count Lymph % (Auto) Lymph # (Auto) [place] # (Auto) Seg Neutrophils % Seg Neuts % (Manual) 86.0 H Lymphocytes % (Manual) 1.0 L Monocytes % (Manual) Basophils % (Manual) Seg Neutrophils # Seg Neutrophils # Man 17.4 H Lymphocytes # (Manual) 0.2 L Monocytes # (Manual) Eosinophils # (Manual) Basophils # (Manual) PT 15.6 H INR 1.21 H D-Dimer 1311.96 H ABG pH POC ABG pCO2 POC ABG pO2 ABG pO2 ABG HCO3 ABG O2 Saturation ABG Base Excess ABG Hemoglobin ABG Oxyhemoglobin ABG Potassium ABG Glucose Oxyhemoglobin Carboxyhemoglobin Sodium 135 L Potassium 3.2 L Chloride 92.2 L Carbon Dioxide BUN 6 L Creatinine < 0.2 L Glucose 124 H POC Glucose Calcium Ferritin Total Bilirubin 2.30 H Alkaline Phosphatase 132 H Lactate Dehydrogenase Total Creatine Kinase CK-MB (CK-2) Rel Index Troponin T 0.080 H C-Reactive Protein Total Protein Albumin 3.6 L Prealbumin LDL Cholesterol Direct 41 L Arterial Blood Glucose Arterial Blood Ionized Calcium Urine WBC (Auto) 02/24/20 02/24/20 02/24/20 09:19 09:58 10:01 WBC RBC Hgb Hct MCV MCH RDW Plt Count Lymph % (Auto) Lymph # (Auto) [place] # (Auto) Seg Neutrophils % Seg Neuts % (Manual) Lymphocytes % (Manual) Monocytes % (Manual) Basophils % (Manual) Seg Neutrophils # Seg Neutrophils # Man Lymphocytes # (Manual) Monocytes # (Manual) Eosinophils # (Manual) Basophils # (Manual) PT INR D-Dimer ABG pH 7.176 L* POC ABG pCO2 POC ABG pO2 ABG pO2 91.2 H ABG HCO3 ABG O2 Saturation ABG Base Excess -4.6 L ABG Hemoglobin ABG Oxyhemoglobin ABG Potassium ABG Glucose Oxyhemoglobin 92.6 L Carboxyhemoglobin Sodium Potassium Chloride Carbon Dioxide BUN Creatinine Glucose POC Glucose Calcium Ferritin 1715.0 H Total Bilirubin Alkaline Phosphatase Lactate Dehydrogenase 303 H Total Creatine Kinase CK-MB (CK-2) Rel Index Troponin T C-Reactive Protein 26.10 H Total Protein Albumin Prealbumin LDL Cholesterol Direct Arterial Blood Glucose Arterial Blood Ionized Calcium Urine WBC (Auto) 02/24/20 02/24/20 02/24/20 11:52 13:45 19:35 WBC RBC Hgb Hct MCV MCH RDW Plt Count Lymph % (Auto) Lymph # (Auto) [place] # (Auto) Seg Neutrophils % Seg Neuts % (Manual) Lymphocytes % (Manual) Monocytes % (Manual) Basophils % (Manual) Seg Neutrophils # Seg Neutrophils # Man Lymphocytes # (Manual) Monocytes # (Manual) Eosinophils # (Manual) Basophils # (Manual) PT INR D-Dimer ABG pH 7.051 L* 7.300 L POC ABG pCO2 POC ABG pO2 ABG pO2 94.7 H 75.1 L ABG HCO3 18.0 L ABG O2 Saturation 93.5 L ABG Base Excess -6.8 L -7.8 L ABG Hemoglobin 13.2 L 11.9 L ABG Oxyhemoglobin ABG Potassium ABG Glucose Oxyhemoglobin 91.0 L 92.7 L Carboxyhemoglobin Sodium Potassium Chloride Carbon Dioxide BUN Creatinine Glucose POC Glucose Calcium Ferritin Total Bilirubin Alkaline Phosphatase Lactate Dehydrogenase Total Creatine Kinase CK-MB (CK-2) Rel Index Troponin T 0.034 H D C-Reactive Protein Total Protein Albumin Prealbumin LDL Cholesterol Direct Arterial Blood Glucose Arterial Blood Ionized Calcium Urine WBC (Auto) 02/25/20 02/25/20 02/25/20 04:00 04:00 12:26 WBC 22.9 H RBC Hgb Hct MCV 83 L MCH 27 L RDW Plt Count 468 H Lymph % (Auto) Lymph # (Auto) [place] # (Auto) Seg Neutrophils % Seg Neuts % (Manual) 89.0 H Lymphocytes % (Manual) 7.0 L Monocytes % (Manual) Basophils % (Manual) Seg Neutrophils # Seg Neutrophils # Man 20.4 H Lymphocytes # (Manual) Monocytes # (Manual) Eosinophils # (Manual) Basophils # (Manual) PT INR D-Dimer ABG pH POC ABG pCO2 POC ABG pO2 ABG pO2 ABG HCO3 ABG O2 Saturation ABG Base Excess ABG Hemoglobin ABG Oxyhemoglobin ABG Potassium 2.6 L ABG Glucose 142 H Oxyhemoglobin Carboxyhemoglobin Sodium Potassium 3.2 L Chloride Carbon Dioxide 18 L BUN Creatinine 0.2 L Glucose 114 H POC Glucose Calcium Ferritin Total Bilirubin Alkaline Phosphatase Lactate Dehydrogenase Total Creatine Kinase CK-MB (CK-2) Rel Index Troponin T C-Reactive Protein Total Protein Albumin 3.5 L Prealbumin LDL Cholesterol Direct Arterial Blood Glucose 142 H Arterial Blood Ionized Calcium Urine WBC (Auto) 02/26/20 02/26/20 02/26/20 15:58 17:00 23:43 WBC RBC Hgb Hct MCV MCH RDW Plt Count Lymph % (Auto) Lymph # (Auto) [place] # (Auto) Seg Neutrophils % Seg Neuts % (Manual) Lymphocytes % (Manual) Monocytes % (Manual) Basophils % (Manual) Seg Neutrophils # Seg Neutrophils # Man Lymphocytes # (Manual) Monocytes # (Manual) Eosinophils # (Manual) Basophils # (Manual) PT INR D-Dimer ABG pH 7.502 H POC ABG pCO2 POC ABG pO2 213.6 H ABG pO2 ABG HCO3 ABG O2 Saturation ABG Base Excess ABG Hemoglobin ABG Oxyhemoglobin 99.2 H ABG Potassium 2.9 L ABG Glucose 160 H Oxyhemoglobin Carboxyhemoglobin 0.4 L Sodium Potassium Chloride Carbon Dioxide BUN Creatinine Glucose POC Glucose 189 H 120 H Calcium Ferritin Total Bilirubin Alkaline Phosphatase Lactate Dehydrogenase Total Creatine Kinase CK-MB (CK-2) Rel Index Troponin T C-Reactive Protein Total Protein Albumin Prealbumin LDL Cholesterol Direct Arterial Blood Glucose 160 H Arterial Blood Ionized Calcium 4.5 L Urine WBC (Auto) 02/27/20 02/27/20 02/27/20 05:00 07:04 17:45 WBC RBC Hgb Hct MCV MCH RDW Plt Count Lymph % (Auto) Lymph # (Auto) [place] # (Auto) Seg Neutrophils % Seg Neuts % (Manual) Lymphocytes % (Manual) Monocytes % (Manual) Basophils % (Manual) Seg Neutrophils # Seg Neutrophils # Man Lymphocytes # (Manual) Monocytes # (Manual) Eosinophils # (Manual) Basophils # (Manual) PT INR D-Dimer ABG pH 7.524 H POC ABG pCO2 POC ABG pO2 ABG pO2 ABG HCO3 ABG O2 Saturation ABG Base Excess ABG Hemoglobin ABG Oxyhemoglobin ABG Potassium 3.0 L ABG Glucose 143 H Oxyhemoglobin Carboxyhemoglobin Sodium Potassium Chloride Carbon Dioxide BUN Creatinine Glucose POC Glucose 154 H 175 H Calcium Ferritin Total Bilirubin Alkaline Phosphatase Lactate Dehydrogenase Total Creatine Kinase CK-MB (CK-2) Rel Index Troponin T C-Reactive Protein Total Protein Albumin Prealbumin LDL Cholesterol Direct Arterial Blood Glucose 143 H Arterial Blood Ionized Calcium Urine WBC (Auto) 02/27/20 02/28/20 02/28/20 Unknown 00:21 04:15 WBC 18.7 H RBC Hgb Hct MCV MCH RDW Plt Count Lymph % (Auto) 8.7 L Lymph # (Auto) [place] # (Auto) 1.2 H Seg Neutrophils % 84.6 H Seg Neuts % (Manual) Lymphocytes % (Manual) Monocytes % (Manual) Basophils % (Manual) Seg Neutrophils # 15.9 H Seg Neutrophils # Man Lymphocytes # (Manual) Monocytes # (Manual) Eosinophils # (Manual) Basophils # (Manual) PT INR D-Dimer ABG pH POC ABG pCO2 POC ABG pO2 ABG pO2 ABG HCO3 ABG O2 Saturation ABG Base Excess ABG Hemoglobin ABG Oxyhemoglobin ABG Potassium ABG Glucose Oxyhemoglobin Carboxyhemoglobin Sodium Potassium 2.9 L* Chloride Carbon Dioxide 33 H D BUN Creatinine < 0.2 L Glucose 157 H POC Glucose 134 H Calcium Ferritin Total Bilirubin Alkaline Phosphatase Lactate Dehydrogenase Total Creatine Kinase CK-MB (CK-2) Rel Index Troponin T C-Reactive Protein Total Protein Albumin Prealbumin LDL Cholesterol Direct Arterial Blood Glucose Arterial Blood Ionized Calcium Urine WBC (Auto) 02/28/20 02/28/20 02/28/20 04:15 05:16 05:39 WBC RBC Hgb Hct MCV MCH RDW Plt Count Lymph % (Auto) Lymph # (Auto) [place] # (Auto) Seg Neutrophils % Seg Neuts % (Manual) Lymphocytes % (Manual) Monocytes % (Manual) Basophils % (Manual) Seg Neutrophils # Seg Neutrophils # Man Lymphocytes # (Manual) Monocytes # (Manual) Eosinophils # (Manual) Basophils # (Manual) PT INR D-Dimer ABG pH POC ABG pCO2 POC ABG pO2 ABG pO2 142.9 H ABG HCO3 34.1 H ABG O2 Saturation ABG Base Excess 8.3 H ABG Hemoglobin ABG Oxyhemoglobin ABG Potassium ABG Glucose Oxyhemoglobin Carboxyhemoglobin Sodium 151 H Potassium Chloride Carbon Dioxide 32 H BUN Creatinine 0.2 L Glucose 167 H POC Glucose 138 H Calcium Ferritin Total Bilirubin Alkaline Phosphatase Lactate Dehydrogenase Total Creatine Kinase CK-MB (CK-2) Rel Index Troponin T C-Reactive Protein Total Protein Albumin Prealbumin LDL Cholesterol Direct Arterial Blood Glucose Arterial Blood Ionized Calcium Urine WBC (Auto) 02/28/20 02/28/20 02/28/20 11:05 11:33 12:54 WBC RBC Hgb Hct MCV MCH RDW Plt Count Lymph % (Auto) Lymph # (Auto) [place] # (Auto) Seg Neutrophils % Seg Neuts % (Manual) Lymphocytes % (Manual) Monocytes % (Manual) Basophils % (Manual) Seg Neutrophils # Seg Neutrophils # Man Lymphocytes # (Manual) Monocytes # (Manual) Eosinophils # (Manual) Basophils # (Manual) PT INR D-Dimer ABG pH POC ABG pCO2 POC ABG pO2 ABG pO2 ABG HCO3 ABG O2 Saturation ABG Base Excess ABG Hemoglobin ABG Oxyhemoglobin ABG Potassium ABG Glucose Oxyhemoglobin Carboxyhemoglobin Sodium Potassium Chloride Carbon Dioxide BUN Creatinine Glucose POC Glucose 160 H Calcium Ferritin Total Bilirubin Alkaline Phosphatase Lactate Dehydrogenase Total Creatine Kinase CK-MB (CK-2) Rel Index Troponin T C-Reactive Protein 4.70 H Total Protein Albumin Prealbumin 0.090 L LDL Cholesterol Direct Arterial Blood Glucose Arterial Blood Ionized Calcium Urine WBC (Auto) 02/28/20 02/29/20 02/29/20 17:34 00:44 04:05 WBC 19.6 H RBC Hgb Hct MCV MCH 27 L RDW 15.4 H Plt Count Lymph % (Auto) Lymph # (Auto) [place] # (Auto) Seg Neutrophils % Seg Neuts % (Manual) 86.0 H Lymphocytes % (Manual) 7.0 L Monocytes % (Manual) Basophils % (Manual) Seg Neutrophils # Seg Neutrophils # Man 16.9 H Lymphocytes # (Manual) Monocytes # (Manual) 1.2 H Eosinophils # (Manual) Basophils # (Manual) PT INR D-Dimer ABG pH POC ABG pCO2 POC ABG pO2 ABG pO2 ABG HCO3 ABG O2 Saturation ABG Base Excess ABG Hemoglobin ABG Oxyhemoglobin ABG Potassium ABG Glucose Oxyhemoglobin Carboxyhemoglobin Sodium Potassium Chloride Carbon Dioxide BUN Creatinine Glucose POC Glucose 136 H 156 H Calcium Ferritin Total Bilirubin Alkaline Phosphatase Lactate Dehydrogenase Total Creatine Kinase CK-MB (CK-2) Rel Index Troponin T C-Reactive Protein Total Protein Albumin Prealbumin LDL Cholesterol Direct Arterial Blood Glucose Arterial Blood Ionized Calcium Urine WBC (Auto) 02/29/20 02/29/20 02/29/20 04:05 05:14 05:33 WBC RBC Hgb Hct MCV MCH RDW Plt Count Lymph % (Auto) Lymph # (Auto) [place] # (Auto) Seg Neutrophils % Seg Neuts % (Manual) Lymphocytes % (Manual) Monocytes % (Manual) Basophils % (Manual) Seg Neutrophils # Seg Neutrophils # Man Lymphocytes # (Manual) Monocytes # (Manual) Eosinophils # (Manual) Basophils # (Manual) PT INR D-Dimer ABG pH POC ABG pCO2 54.3 H POC ABG pO2 124.8 H ABG pO2 ABG HCO3 ABG O2 Saturation ABG Base Excess ABG Hemoglobin ABG Oxyhemoglobin ABG Potassium ABG Glucose 185 H Oxyhemoglobin Carboxyhemoglobin Sodium 148 H Potassium Chloride Carbon Dioxide 33 H BUN Creatinine < 0.2 L Glucose 173 H POC Glucose 152 H Calcium Ferritin Total Bilirubin Alkaline Phosphatase Lactate Dehydrogenase Total Creatine Kinase CK-MB (CK-2) Rel Index Troponin T C-Reactive Protein Total Protein Albumin Prealbumin LDL Cholesterol Direct Arterial Blood Glucose 185 H Arterial Blood Ionized Calcium Urine WBC (Auto) 03/01/20 03/01/20 03/01/20 00:00 03:45 04:33 WBC 23.1 H RBC Hgb Hct MCV MCH 27 L RDW 15.3 H Plt Count Lymph % (Auto) Lymph # (Auto) [place] # (Auto) Seg Neutrophils % Seg Neuts % (Manual) 92.0 H Lymphocytes % (Manual) 6.0 L Monocytes % (Manual) Basophils % (Manual) Seg Neutrophils # Seg Neutrophils # Man 21.3 H Lymphocytes # (Manual) Monocytes # (Manual) Eosinophils # (Manual) 0.5 H Basophils # (Manual) PT INR D-Dimer ABG pH 7.492 H POC ABG pCO2 POC ABG pO2 ABG pO2 157.1 H ABG HCO3 32.3 H ABG O2 Saturation ABG Base Excess 8.1 H ABG Hemoglobin 13.2 L ABG Oxyhemoglobin ABG Potassium ABG Glucose Oxyhemoglobin Carboxyhemoglobin Sodium Potassium Chloride Carbon Dioxide BUN Creatinine Glucose POC Glucose 109 H Calcium Ferritin Total Bilirubin Alkaline Phosphatase Lactate Dehydrogenase Total Creatine Kinase CK-MB (CK-2) Rel Index Troponin T C-Reactive Protein Total Protein Albumin Prealbumin LDL Cholesterol Direct Arterial Blood Glucose Arterial Blood Ionized Calcium Urine WBC (Auto) 03/01/20 03/01/20 03/01/20 04:33 05:29 12:32 WBC RBC Hgb Hct MCV MCH RDW Plt Count Lymph % (Auto) Lymph # (Auto) [place] # (Auto) Seg Neutrophils % Seg Neuts % (Manual) Lymphocytes % (Manual) Monocytes % (Manual) Basophils % (Manual) Seg Neutrophils # Seg Neutrophils # Man Lymphocytes # (Manual) Monocytes # (Manual) Eosinophils # (Manual) Basophils # (Manual) PT INR D-Dimer ABG pH POC ABG pCO2 POC ABG pO2 ABG pO2 ABG HCO3 ABG O2 Saturation ABG Base Excess ABG Hemoglobin ABG Oxyhemoglobin ABG Potassium ABG Glucose Oxyhemoglobin Carboxyhemoglobin Sodium 146 H Potassium Chloride Carbon Dioxide 32 H BUN Creatinine < 0.2 L Glucose 120 H POC Glucose 120 H 128 H Calcium Ferritin Total Bilirubin Alkaline Phosphatase Lactate Dehydrogenase Total Creatine Kinase CK-MB (CK-2) Rel Index Troponin T C-Reactive Protein Total Protein Albumin Prealbumin LDL Cholesterol Direct Arterial Blood Glucose Arterial Blood Ionized Calcium Urine WBC (Auto) 03/01/20 03/01/20 03/02/20 17:38 23:46 06:13 WBC RBC Hgb Hct MCV MCH RDW Plt Count Lymph % (Auto) Lymph # (Auto) [place] # (Auto) Seg Neutrophils % Seg Neuts % (Manual) Lymphocytes % (Manual) Monocytes % (Manual) Basophils % (Manual) Seg Neutrophils # Seg Neutrophils # Man Lymphocytes # (Manual) Monocytes # (Manual) Eosinophils # (Manual) Basophils # (Manual) PT INR D-Dimer ABG pH POC ABG pCO2 POC ABG pO2 ABG pO2 ABG HCO3 ABG O2 Saturation ABG Base Excess ABG Hemoglobin ABG Oxyhemoglobin ABG Potassium ABG Glucose Oxyhemoglobin Carboxyhemoglobin Sodium Potassium Chloride Carbon Dioxide BUN Creatinine Glucose POC Glucose 114 H 121 H 120 H Calcium Ferritin Total Bilirubin Alkaline Phosphatase Lactate Dehydrogenase Total Creatine Kinase CK-MB (CK-2) Rel Index Troponin T C-Reactive Protein Total Protein Albumin Prealbumin LDL Cholesterol Direct Arterial Blood Glucose Arterial Blood Ionized Calcium Urine WBC (Auto) 03/02/20 03/02/20 03/03/20 09:47 09:47 10:21 WBC 23.6 H RBC Hgb Hct MCV MCH RDW 15.3 H Plt Count 494 H Lymph % (Auto) Lymph # (Auto) [place] # (Auto) Seg Neutrophils % Seg Neuts % (Manual) 85.0 H Lymphocytes % (Manual) 6.0 L Monocytes % (Manual) Basophils % (Manual) Seg Neutrophils # Seg Neutrophils # Man 20.1 H Lymphocytes # (Manual) Monocytes # (Manual) 1.7 H Eosinophils # (Manual) Basophils # (Manual) PT INR D-Dimer ABG pH POC ABG pCO2 POC ABG pO2 ABG pO2 ABG HCO3 ABG O2 Saturation ABG Base Excess ABG Hemoglobin ABG Oxyhemoglobin ABG Potassium 3.3 L ABG Glucose 158 H Oxyhemoglobin Carboxyhemoglobin Sodium Potassium Chloride Carbon Dioxide BUN Creatinine < 0.2 L Glucose 177 H POC Glucose Calcium Ferritin Total Bilirubin Alkaline Phosphatase Lactate Dehydrogenase Total Creatine Kinase CK-MB (CK-2) Rel Index Troponin T C-Reactive Protein Total Protein Albumin Prealbumin LDL Cholesterol Direct Arterial Blood Glucose 158 H Arterial Blood Ionized Calcium Urine WBC (Auto) 03/03/20 03/04/20 03/04/20 21:30 00:00 12:23 WBC RBC Hgb Hct MCV MCH RDW Plt Count Lymph % (Auto) Lymph # (Auto) [place] # (Auto) Seg Neutrophils % Seg Neuts % (Manual) Lymphocytes % (Manual) Monocytes % (Manual) Basophils % (Manual) Seg Neutrophils # Seg Neutrophils # Man Lymphocytes # (Manual) Monocytes # (Manual) Eosinophils # (Manual) Basophils # (Manual) PT INR D-Dimer ABG pH 7.328 L POC ABG pCO2 POC ABG pO2 ABG pO2 68.4 L ABG HCO3 35.0 H ABG O2 Saturation 93.9 L ABG Base Excess 6.8 H ABG Hemoglobin 12.7 L ABG Oxyhemoglobin ABG Potassium ABG Glucose Oxyhemoglobin 91.9 L Carboxyhemoglobin Sodium Potassium Chloride Carbon Dioxide BUN Creatinine Glucose POC Glucose 187 H 163 H Calcium Ferritin Total Bilirubin Alkaline Phosphatase Lactate Dehydrogenase Total Creatine Kinase CK-MB (CK-2) Rel Index Troponin T C-Reactive Protein Total Protein Albumin Prealbumin LDL Cholesterol Direct Arterial Blood Glucose Arterial Blood Ionized Calcium Urine WBC (Auto) 03/04/20 03/04/20 03/05/20 18:15 21:30 06:02 WBC RBC Hgb Hct MCV MCH RDW Plt Count Lymph % (Auto) Lymph # (Auto) [place] # (Auto) Seg Neutrophils % Seg Neuts % (Manual) Lymphocytes % (Manual) Monocytes % (Manual) Basophils % (Manual) Seg Neutrophils # Seg Neutrophils # Man Lymphocytes # (Manual) Monocytes # (Manual) Eosinophils # (Manual) Basophils # (Manual) PT INR D-Dimer ABG pH 7.297 L POC ABG pCO2 POC ABG pO2 ABG pO2 ABG HCO3 41.0 H ABG O2 Saturation ABG Base Excess 11.0 H ABG Hemoglobin 13.1 L ABG Oxyhemoglobin ABG Potassium ABG Glucose Oxyhemoglobin 94.5 L Carboxyhemoglobin Sodium Potassium Chloride Carbon Dioxide BUN Creatinine Glucose POC Glucose 192 H 127 H Calcium Ferritin Total Bilirubin Alkaline Phosphatase Lactate Dehydrogenase Total Creatine Kinase CK-MB (CK-2) Rel Index Troponin T C-Reactive Protein Total Protein Albumin Prealbumin LDL Cholesterol Direct Arterial Blood Glucose Arterial Blood Ionized Calcium Urine WBC (Auto) 03/05/20 03/05/20 03/06/20 12:09 16:42 00:24 WBC RBC Hgb Hct MCV MCH RDW Plt Count Lymph % (Auto) Lymph # (Auto) [place] # (Auto) Seg Neutrophils % Seg Neuts % (Manual) Lymphocytes % (Manual) Monocytes % (Manual) Basophils % (Manual) Seg Neutrophils # Seg Neutrophils # Man Lymphocytes # (Manual) Monocytes # (Manual) Eosinophils # (Manual) Basophils # (Manual) PT INR D-Dimer ABG pH POC ABG pCO2 POC ABG pO2 ABG pO2 ABG HCO3 ABG O2 Saturation ABG Base Excess ABG Hemoglobin ABG Oxyhemoglobin ABG Potassium ABG Glucose Oxyhemoglobin Carboxyhemoglobin Sodium Potassium Chloride Carbon Dioxide BUN Creatinine Glucose POC Glucose 147 H 114 H 134 H Calcium Ferritin Total Bilirubin Alkaline Phosphatase Lactate Dehydrogenase Total Creatine Kinase CK-MB (CK-2) Rel Index Troponin T C-Reactive Protein Total Protein Albumin Prealbumin LDL Cholesterol Direct Arterial Blood Glucose Arterial Blood Ionized Calcium Urine WBC (Auto) 03/06/20 03/06/20 03/06/20 04:34 05:53 06:08 WBC 25.4 H RBC Hgb 10.5 L Hct 32.7 L MCV MCH 27 L RDW 15.3 H Plt Count 634 H Lymph % (Auto) Lymph # (Auto) [place] # (Auto) Seg Neutrophils % Seg Neuts % (Manual) 88.0 H Lymphocytes % (Manual) 2.0 L Monocytes % (Manual) 8.0 H Basophils % (Manual) Seg Neutrophils # Seg Neutrophils # Man 22.4 H Lymphocytes # (Manual) 0.5 L Monocytes # (Manual) 2.0 H Eosinophils # (Manual) Basophils # (Manual) PT INR D-Dimer ABG pH POC ABG pCO2 POC ABG pO2 ABG pO2 ABG HCO3 37.9 H ABG O2 Saturation ABG Base Excess 11.4 H ABG Hemoglobin 10.6 L ABG Oxyhemoglobin ABG Potassium ABG Glucose Oxyhemoglobin 94.7 L Carboxyhemoglobin Sodium Potassium Chloride Carbon Dioxide BUN Creatinine Glucose POC Glucose 135 H Calcium Ferritin Total Bilirubin Alkaline Phosphatase Lactate Dehydrogenase Total Creatine Kinase CK-MB (CK-2) Rel Index Troponin T C-Reactive Protein Total Protein Albumin Prealbumin LDL Cholesterol Direct Arterial Blood Glucose Arterial Blood Ionized Calcium Urine WBC (Auto) 03/06/20 03/06/20 03/06/20 06:08 12:19 19:10 WBC RBC Hgb Hct MCV MCH RDW Plt Count Lymph % (Auto) Lymph # (Auto) [place] # (Auto) Seg Neutrophils % Seg Neuts % (Manual) Lymphocytes % (Manual) Monocytes % (Manual) Basophils % (Manual) Seg Neutrophils # Seg Neutrophils # Man Lymphocytes # (Manual) Monocytes # (Manual) Eosinophils # (Manual) Basophils # (Manual) PT INR D-Dimer ABG pH POC ABG pCO2 POC ABG pO2 ABG pO2 ABG HCO3 ABG O2 Saturation ABG Base Excess ABG Hemoglobin ABG Oxyhemoglobin ABG Potassium ABG Glucose Oxyhemoglobin Carboxyhemoglobin Sodium 150 H D Potassium Chloride Carbon Dioxide 39 H D BUN 23 H Creatinine < 0.2 L Glucose 144 H POC Glucose 169 H 152 H Calcium Ferritin Total Bilirubin Alkaline Phosphatase Lactate Dehydrogenase Total Creatine Kinase CK-MB (CK-2) Rel Index Troponin T C-Reactive Protein Total Protein Albumin 3.3 L Prealbumin LDL Cholesterol Direct Arterial Blood Glucose Arterial Blood Ionized Calcium Urine WBC (Auto) 03/06/20 03/07/20 03/07/20 23:58 04:25 04:25 WBC 22.1 H RBC Hgb 10.9 L Hct 32.9 L MCV MCH RDW 15.5 H Plt Count 739 H Lymph % (Auto) 7.8 L Lymph # (Auto) [place] # (Auto) 1.3 H Seg Neutrophils % 85.5 H Seg Neuts % (Manual) Lymphocytes % (Manual) Monocytes % (Manual) Basophils % (Manual) Seg Neutrophils # 18.9 H Seg Neutrophils # Man Lymphocytes # (Manual) Monocytes # (Manual) Eosinophils # (Manual) Basophils # (Manual) PT INR D-Dimer ABG pH POC ABG pCO2 POC ABG pO2 ABG pO2 ABG HCO3 ABG O2 Saturation ABG Base Excess ABG Hemoglobin ABG Oxyhemoglobin ABG Potassium ABG Glucose Oxyhemoglobin Carboxyhemoglobin Sodium 146 H Potassium Chloride Carbon Dioxide 37 H BUN Creatinine < 0.2 L Glucose 118 H POC Glucose 111 H Calcium Ferritin Total Bilirubin Alkaline Phosphatase Lactate Dehydrogenase Total Creatine Kinase CK-MB (CK-2) Rel Index Troponin T C-Reactive Protein Total Protein Albumin 3.7 L Prealbumin LDL Cholesterol Direct Arterial Blood Glucose Arterial Blood Ionized Calcium Urine WBC (Auto) 03/07/20 03/07/20 03/07/20 05:20 17:45 23:32 WBC RBC Hgb Hct MCV MCH RDW Plt Count Lymph % (Auto) Lymph # (Auto) [place] # (Auto) Seg Neutrophils % Seg Neuts % (Manual) Lymphocytes % (Manual) Monocytes % (Manual) Basophils % (Manual) Seg Neutrophils # Seg Neutrophils # Man Lymphocytes # (Manual) Monocytes # (Manual) Eosinophils # (Manual) Basophils # (Manual) PT INR D-Dimer ABG pH POC ABG pCO2 POC ABG pO2 ABG pO2 ABG HCO3 ABG O2 Saturation ABG Base Excess ABG Hemoglobin ABG Oxyhemoglobin ABG Potassium ABG Glucose Oxyhemoglobin Carboxyhemoglobin Sodium Potassium Chloride Carbon Dioxide BUN Creatinine Glucose POC Glucose 113 H 124 H 210 H Calcium Ferritin Total Bilirubin Alkaline Phosphatase Lactate Dehydrogenase Total Creatine Kinase CK-MB (CK-2) Rel Index Troponin T C-Reactive Protein Total Protein Albumin Prealbumin LDL Cholesterol Direct Arterial Blood Glucose Arterial Blood Ionized Calcium Urine WBC (Auto) 03/08/20 03/08/20 03/08/20 05:35 06:43 06:43 WBC 28.9 H RBC 3.53 L Hgb 9.7 L Hct 30.3 L MCV MCH RDW 15.6 H Plt Count 578 H Lymph % (Auto) Lymph # (Auto) [place] # (Auto) Seg Neutrophils % Seg Neuts % (Manual) 93.0 H Lymphocytes % (Manual) 4.0 L Monocytes % (Manual) Basophils % (Manual) Seg Neutrophils # Seg Neutrophils # Man 26.9 H Lymphocytes # (Manual) Monocytes # (Manual) Eosinophils # (Manual) Basophils # (Manual) PT INR D-Dimer ABG pH POC ABG pCO2 POC ABG pO2 ABG pO2 ABG HCO3 ABG O2 Saturation ABG Base Excess ABG Hemoglobin ABG Oxyhemoglobin ABG Potassium ABG Glucose Oxyhemoglobin Carboxyhemoglobin Sodium 146 H Potassium Chloride Carbon Dioxide 35 H BUN 34 H Creatinine 0.3 L D Glucose 125 H POC Glucose 147 H Calcium Ferritin Total Bilirubin Alkaline Phosphatase Lactate Dehydrogenase Total Creatine Kinase CK-MB (CK-2) Rel Index Troponin T C-Reactive Protein Total Protein 5.9 L Albumin 3.2 L Prealbumin LDL Cholesterol Direct Arterial Blood Glucose Arterial Blood Ionized Calcium Urine WBC (Auto) 03/08/20 03/08/20 03/08/20 08:57 11:14 12:34 WBC RBC Hgb Hct MCV MCH RDW Plt Count Lymph % (Auto) Lymph # (Auto) [place] # (Auto) Seg Neutrophils % Seg Neuts % (Manual) Lymphocytes % (Manual) Monocytes % (Manual) Basophils % (Manual) Seg Neutrophils # Seg Neutrophils # Man Lymphocytes # (Manual) Monocytes # (Manual) Eosinophils # (Manual) Basophils # (Manual) PT INR D-Dimer ABG pH POC ABG pCO2 63.1 H POC ABG pO2 ABG pO2 ABG HCO3 ABG O2 Saturation ABG Base Excess ABG Hemoglobin 10.9 L ABG Oxyhemoglobin ABG Potassium ABG Glucose 176 H Oxyhemoglobin Carboxyhemoglobin Sodium Potassium Chloride Carbon Dioxide BUN Creatinine Glucose POC Glucose 171 H Calcium Ferritin Total Bilirubin Alkaline Phosphatase Lactate Dehydrogenase Total Creatine Kinase CK-MB (CK-2) Rel Index Troponin T C-Reactive Protein Total Protein Albumin Prealbumin LDL Cholesterol Direct Arterial Blood Glucose 176 H Arterial Blood Ionized Calcium 4.5 L Urine WBC (Auto) 10.0 H 03/08/20 03/08/20 03/09/20 18:02 23:43 05:49 WBC RBC Hgb Hct MCV MCH RDW Plt Count Lymph % (Auto) Lymph # (Auto) [place] # (Auto) Seg Neutrophils % Seg Neuts % (Manual) Lymphocytes % (Manual) Monocytes % (Manual) Basophils % (Manual) Seg Neutrophils # Seg Neutrophils # Man Lymphocytes # (Manual) Monocytes # (Manual) Eosinophils # (Manual) Basophils # (Manual) PT INR D-Dimer ABG pH POC ABG pCO2 POC ABG pO2 ABG pO2 ABG HCO3 ABG O2 Saturation ABG Base Excess ABG Hemoglobin ABG Oxyhemoglobin ABG Potassium ABG Glucose Oxyhemoglobin Carboxyhemoglobin Sodium Potassium Chloride Carbon Dioxide BUN Creatinine Glucose POC Glucose 157 H 134 H 163 H Calcium Ferritin Total Bilirubin Alkaline Phosphatase Lactate Dehydrogenase Total Creatine Kinase CK-MB (CK-2) Rel Index Troponin T C-Reactive Protein Total Protein Albumin Prealbumin LDL Cholesterol Direct Arterial Blood Glucose Arterial Blood Ionized Calcium Urine WBC (Auto) 03/09/20 03/09/20 03/09/20 08:35 08:35 12:11 WBC 23.4 H RBC 3.36 L Hgb 9.3 L Hct 28.8 L MCV MCH RDW 15.9 H Plt Count 521 H Lymph % (Auto) Lymph # (Auto) [place] # (Auto) Seg Neutrophils % Seg Neuts % (Manual) 87.0 H Lymphocytes % (Manual) 4.0 L Monocytes % (Manual) 9.0 H Basophils % (Manual) Seg Neutrophils # Seg Neutrophils # Man 20.4 H Lymphocytes # (Manual) 0.9 L Monocytes # (Manual) 2.1 H Eosinophils # (Manual) Basophils # (Manual) PT INR D-Dimer ABG pH POC ABG pCO2 POC ABG pO2 ABG pO2 ABG HCO3 ABG O2 Saturation ABG Base Excess ABG Hemoglobin ABG Oxyhemoglobin ABG Potassium ABG Glucose Oxyhemoglobin Carboxyhemoglobin Sodium 147 H Potassium Chloride Carbon Dioxide 37 H BUN 63 H Creatinine Glucose 154 H POC Glucose 128 H Calcium Ferritin Total Bilirubin Alkaline Phosphatase Lactate Dehydrogenase Total Creatine Kinase CK-MB (CK-2) Rel Index Troponin T C-Reactive Protein Total Protein Albumin Prealbumin LDL Cholesterol Direct Arterial Blood Glucose Arterial Blood Ionized Calcium Urine WBC (Auto) 03/09/20 03/10/20 03/10/20 17:51 00:25 05:41 WBC RBC Hgb Hct MCV MCH RDW Plt Count Lymph % (Auto) Lymph # (Auto) [place] # (Auto) Seg Neutrophils % Seg Neuts % (Manual) Lymphocytes % (Manual) Monocytes % (Manual) Basophils % (Manual) Seg Neutrophils # Seg Neutrophils # Man Lymphocytes # (Manual) Monocytes # (Manual) Eosinophils # (Manual) Basophils # (Manual) PT INR D-Dimer ABG pH POC ABG pCO2 POC ABG pO2 ABG pO2 ABG HCO3 ABG O2 Saturation ABG Base Excess ABG Hemoglobin ABG Oxyhemoglobin ABG Potassium ABG Glucose Oxyhemoglobin Carboxyhemoglobin Sodium Potassium Chloride Carbon Dioxide BUN Creatinine Glucose POC Glucose 127 H 128 H 153 H Calcium Ferritin Total Bilirubin Alkaline Phosphatase Lactate Dehydrogenase Total Creatine Kinase CK-MB (CK-2) Rel Index Troponin T C-Reactive Protein Total Protein Albumin Prealbumin LDL Cholesterol Direct Arterial Blood Glucose Arterial Blood Ionized Calcium Urine WBC (Auto) 03/10/20 03/10/20 03/10/20 06:14 06:14 12:02 WBC 18.3 H RBC 3.45 L Hgb 9.5 L Hct 29.5 L MCV MCH RDW 16.1 H Plt Count 494 H Lymph % (Auto) Lymph # (Auto) [place] # (Auto) Seg Neutrophils % Seg Neuts % (Manual) 95.0 H Lymphocytes % (Manual) 1.0 L Monocytes % (Manual) Basophils % (Manual) Seg Neutrophils # Seg Neutrophils # Man 17.4 H Lymphocytes # (Manual) 0.2 L Monocytes # (Manual) Eosinophils # (Manual) Basophils # (Manual) PT INR D-Dimer ABG pH POC ABG pCO2 POC ABG pO2 ABG pO2 ABG HCO3 ABG O2 Saturation ABG Base Excess ABG Hemoglobin ABG Oxyhemoglobin ABG Potassium ABG Glucose Oxyhemoglobin Carboxyhemoglobin Sodium 149 H Potassium Chloride Carbon Dioxide 35 H BUN 34 H Creatinine 0.2 L D Glucose 177 H POC Glucose 151 H Calcium Ferritin Total Bilirubin Alkaline Phosphatase Lactate Dehydrogenase Total Creatine Kinase CK-MB (CK-2) Rel Index Troponin T C-Reactive Protein Total Protein Albumin Prealbumin LDL Cholesterol Direct Arterial Blood Glucose Arterial Blood Ionized Calcium Urine WBC (Auto) 03/10/20 03/10/20 03/11/20 17:41 23:53 05:02 WBC RBC Hgb Hct MCV MCH RDW Plt Count Lymph % (Auto) Lymph # (Auto) [place] # (Auto) Seg Neutrophils % Seg Neuts % (Manual) Lymphocytes % (Manual) Monocytes % (Manual) Basophils % (Manual) Seg Neutrophils # Seg Neutrophils # Man Lymphocytes # (Manual) Monocytes # (Manual) Eosinophils # (Manual) Basophils # (Manual) PT INR D-Dimer ABG pH POC ABG pCO2 POC ABG pO2 ABG pO2 ABG HCO3 ABG O2 Saturation ABG Base Excess ABG Hemoglobin ABG Oxyhemoglobin ABG Potassium ABG Glucose Oxyhemoglobin Carboxyhemoglobin Sodium Potassium Chloride Carbon Dioxide BUN Creatinine Glucose POC Glucose 168 H 142 H 146 H Calcium Ferritin Total Bilirubin Alkaline Phosphatase Lactate Dehydrogenase Total Creatine Kinase CK-MB (CK-2) Rel Index Troponin T C-Reactive Protein Total Protein Albumin Prealbumin LDL Cholesterol Direct Arterial Blood Glucose Arterial Blood Ionized Calcium Urine WBC (Auto) 03/11/20 03/11/20 03/11/20 11:30 14:01 14:01 WBC 19.7 H RBC 3.04 L Hgb 8.7 L Hct 25.8 L MCV MCH RDW 15.6 H Plt Count Lymph % (Auto) Lymph # (Auto) [place] # (Auto) Seg Neutrophils % Seg Neuts % (Manual) Lymphocytes % (Manual) Monocytes % (Manual) Basophils % (Manual) Seg Neutrophils # Seg Neutrophils # Man Lymphocytes # (Manual) Monocytes # (Manual) Eosinophils # (Manual) Basophils # (Manual) PT INR D-Dimer ABG pH POC ABG pCO2 POC ABG pO2 ABG pO2 ABG HCO3 ABG O2 Saturation ABG Base Excess ABG Hemoglobin ABG Oxyhemoglobin ABG Potassium ABG Glucose Oxyhemoglobin Carboxyhemoglobin Sodium 151 H Potassium Chloride Carbon Dioxide 37 H BUN Creatinine < 0.2 L Glucose 171 H POC Glucose 248 H Calcium Ferritin Total Bilirubin Alkaline Phosphatase Lactate Dehydrogenase Total Creatine Kinase CK-MB (CK-2) Rel Index Troponin T C-Reactive Protein Total Protein Albumin Prealbumin LDL Cholesterol Direct Arterial Blood Glucose Arterial Blood Ionized Calcium Urine WBC (Auto) 03/11/20 03/11/20 03/12/20 17:09 23:52 04:39 WBC 19.9 H RBC 3.16 L Hgb 8.9 L Hct 27.5 L MCV MCH RDW 15.7 H Plt Count Lymph % (Auto) 6.8 L Lymph # (Auto) [place] # (Auto) 1.2 H Seg Neutrophils % 86.0 H Seg Neuts % (Manual) Lymphocytes % (Manual) Monocytes % (Manual) Basophils % (Manual) Seg Neutrophils # 17.1 H Seg Neutrophils # Man Lymphocytes # (Manual) Monocytes # (Manual) Eosinophils # (Manual) Basophils # (Manual) PT INR D-Dimer ABG pH POC ABG pCO2 POC ABG pO2 ABG pO2 ABG HCO3 ABG O2 Saturation ABG Base Excess ABG Hemoglobin ABG Oxyhemoglobin ABG Potassium ABG Glucose Oxyhemoglobin Carboxyhemoglobin Sodium Potassium Chloride Carbon Dioxide BUN Creatinine Glucose POC Glucose 124 H 131 H Calcium Ferritin Total Bilirubin Alkaline Phosphatase Lactate Dehydrogenase Total Creatine Kinase CK-MB (CK-2) Rel Index Troponin T C-Reactive Protein Total Protein Albumin Prealbumin LDL Cholesterol Direct Arterial Blood Glucose Arterial Blood Ionized Calcium Urine WBC (Auto) 03/12/20 03/12/20 03/12/20 04:39 05:28 11:34 WBC RBC Hgb Hct MCV MCH RDW Plt Count Lymph % (Auto) Lymph # (Auto) [place] # (Auto) Seg Neutrophils % Seg Neuts % (Manual) Lymphocytes % (Manual) Monocytes % (Manual) Basophils % (Manual) Seg Neutrophils # Seg Neutrophils # Man Lymphocytes # (Manual) Monocytes # (Manual) Eosinophils # (Manual) Basophils # (Manual) PT INR D-Dimer ABG pH POC ABG pCO2 POC ABG pO2 ABG pO2 ABG HCO3 ABG O2 Saturation ABG Base Excess ABG Hemoglobin ABG Oxyhemoglobin ABG Potassium ABG Glucose Oxyhemoglobin Carboxyhemoglobin Sodium 147 H Potassium Chloride Carbon Dioxide 40 H BUN Creatinine < 0.2 L Glucose 175 H POC Glucose 167 H 144 H Calcium Ferritin Total Bilirubin Alkaline Phosphatase Lactate Dehydrogenase Total Creatine Kinase CK-MB (CK-2) Rel Index Troponin T C-Reactive Protein Total Protein Albumin Prealbumin LDL Cholesterol Direct Arterial Blood Glucose Arterial Blood Ionized Calcium Urine WBC (Auto) 03/12/20 03/12/20 03/13/20 17:32 23:57 05:57 WBC RBC Hgb Hct MCV MCH RDW Plt Count Lymph % (Auto) Lymph # (Auto) [place] # (Auto) Seg Neutrophils % Seg Neuts % (Manual) Lymphocytes % (Manual) Monocytes % (Manual) Basophils % (Manual) Seg Neutrophils # Seg Neutrophils # Man Lymphocytes # (Manual) Monocytes # (Manual) Eosinophils # (Manual) Basophils # (Manual) PT INR D-Dimer ABG pH POC ABG pCO2 POC ABG pO2 ABG pO2 ABG HCO3 ABG O2 Saturation ABG Base Excess ABG Hemoglobin ABG Oxyhemoglobin ABG Potassium ABG Glucose Oxyhemoglobin Carboxyhemoglobin Sodium Potassium Chloride Carbon Dioxide BUN Creatinine Glucose POC Glucose 141 H 137 H 161 H Calcium Ferritin Total Bilirubin Alkaline Phosphatase Lactate Dehydrogenase Total Creatine Kinase CK-MB (CK-2) Rel Index Troponin T C-Reactive Protein Total Protein Albumin Prealbumin LDL Cholesterol Direct Arterial Blood Glucose Arterial Blood Ionized Calcium Urine WBC (Auto) 03/13/20 03/13/20 03/13/20 12:28 14:14 18:39 WBC RBC Hgb Hct MCV MCH RDW Plt Count Lymph % (Auto) Lymph # (Auto) [place] # (Auto) Seg Neutrophils % Seg Neuts % (Manual) Lymphocytes % (Manual) Monocytes % (Manual) Basophils % (Manual) Seg Neutrophils # Seg Neutrophils # Man Lymphocytes # (Manual) Monocytes # (Manual) Eosinophils # (Manual) Basophils # (Manual) PT INR D-Dimer ABG pH POC ABG pCO2 POC ABG pO2 ABG pO2 ABG HCO3 ABG O2 Saturation ABG Base Excess ABG Hemoglobin ABG Oxyhemoglobin ABG Potassium ABG Glucose Oxyhemoglobin Carboxyhemoglobin Sodium Potassium Chloride Carbon Dioxide 39 H BUN Creatinine < 0.2 L Glucose 129 H POC Glucose 130 H 125 H Calcium Ferritin Total Bilirubin Alkaline Phosphatase Lactate Dehydrogenase Total Creatine Kinase CK-MB (CK-2) Rel Index Troponin T C-Reactive Protein Total Protein Albumin Prealbumin LDL Cholesterol Direct Arterial Blood Glucose Arterial Blood Ionized Calcium Urine WBC (Auto) 03/13/20 03/14/20 03/14/20 23:33 05:24 08:07 WBC 16.8 H RBC 2.81 L Hgb 7.9 L Hct 23.9 L MCV MCH RDW 15.9 H Plt Count Lymph % (Auto) Lymph # (Auto) [place] # (Auto) Seg Neutrophils % Seg Neuts % (Manual) 84.0 H Lymphocytes % (Manual) 10.0 L Monocytes % (Manual) Basophils % (Manual) Seg Neutrophils # Seg Neutrophils # Man 14.1 H Lymphocytes # (Manual) Monocytes # (Manual) Eosinophils # (Manual) Basophils # (Manual) PT INR D-Dimer ABG pH POC ABG pCO2 POC ABG pO2 ABG pO2 ABG HCO3 ABG O2 Saturation ABG Base Excess ABG Hemoglobin ABG Oxyhemoglobin ABG Potassium ABG Glucose Oxyhemoglobin Carboxyhemoglobin Sodium Potassium Chloride Carbon Dioxide BUN Creatinine Glucose POC Glucose 146 H 125 H Calcium Ferritin Total Bilirubin Alkaline Phosphatase Lactate Dehydrogenase Total Creatine Kinase CK-MB (CK-2) Rel Index Troponin T C-Reactive Protein Total Protein Albumin Prealbumin LDL Cholesterol Direct Arterial Blood Glucose Arterial Blood Ionized Calcium Urine WBC (Auto) 03/14/20 03/14/20 03/14/20 08:07 12:21 18:26 WBC RBC Hgb Hct MCV MCH RDW Plt Count Lymph % (Auto) Lymph # (Auto) [place] # (Auto) Seg Neutrophils % Seg Neuts % (Manual) Lymphocytes % (Manual) Monocytes % (Manual) Basophils % (Manual) Seg Neutrophils # Seg Neutrophils # Man Lymphocytes # (Manual) Monocytes # (Manual) Eosinophils # (Manual) Basophils # (Manual) PT INR D-Dimer ABG pH POC ABG pCO2 POC ABG pO2 ABG pO2 ABG HCO3 ABG O2 Saturation ABG Base Excess ABG Hemoglobin ABG Oxyhemoglobin ABG Potassium ABG Glucose Oxyhemoglobin Carboxyhemoglobin Sodium Potassium Chloride 97.0 L Carbon Dioxide 37 H BUN Creatinine < 0.2 L Glucose 129 H POC Glucose 109 H 142 H Calcium 8.3 L Ferritin Total Bilirubin Alkaline Phosphatase Lactate Dehydrogenase Total Creatine Kinase CK-MB (CK-2) Rel Index Troponin T C-Reactive Protein Total Protein Albumin Prealbumin LDL Cholesterol Direct Arterial Blood Glucose Arterial Blood Ionized Calcium Urine WBC (Auto) 03/14/20 03/15/20 03/15/20 23:57 05:46 08:06 WBC 19.7 H RBC 3.29 L Hgb 9.1 L Hct 28.0 L MCV MCH RDW 15.9 H Plt Count Lymph % (Auto) Lymph # (Auto) [place] # (Auto) Seg Neutrophils % Seg Neuts % (Manual) Lymphocytes % (Manual) Monocytes % (Manual) Basophils % (Manual) Seg Neutrophils # Seg Neutrophils # Man Lymphocytes # (Manual) Monocytes # (Manual) Eosinophils # (Manual) Basophils # (Manual) PT INR D-Dimer ABG pH POC ABG pCO2 POC ABG pO2 ABG pO2 ABG HCO3 ABG O2 Saturation ABG Base Excess ABG Hemoglobin ABG Oxyhemoglobin ABG Potassium ABG Glucose Oxyhemoglobin Carboxyhemoglobin Sodium Potassium Chloride Carbon Dioxide BUN Creatinine Glucose POC Glucose 157 H 118 H Calcium Ferritin Total Bilirubin Alkaline Phosphatase Lactate Dehydrogenase Total Creatine Kinase CK-MB (CK-2) Rel Index Troponin T C-Reactive Protein Total Protein Albumin Prealbumin LDL Cholesterol Direct Arterial Blood Glucose Arterial Blood Ionized Calcium Urine WBC (Auto) 03/15/20 03/15/20 03/15/20 08:06 12:44 18:09 WBC RBC Hgb Hct MCV MCH RDW Plt Count Lymph % (Auto) Lymph # (Auto) [place] # (Auto) Seg Neutrophils % Seg Neuts % (Manual) Lymphocytes % (Manual) Monocytes % (Manual) Basophils % (Manual) Seg Neutrophils # Seg Neutrophils # Man Lymphocytes # (Manual) Monocytes # (Manual) Eosinophils # (Manual) Basophils # (Manual) PT INR D-Dimer ABG pH POC ABG pCO2 POC ABG pO2 ABG pO2 ABG HCO3 ABG O2 Saturation ABG Base Excess ABG Hemoglobin ABG Oxyhemoglobin ABG Potassium ABG Glucose Oxyhemoglobin Carboxyhemoglobin Sodium 136 L Potassium Chloride 93.6 L Carbon Dioxide 37 H BUN Creatinine < 0.2 L Glucose 132 H POC Glucose 151 H 164 H Calcium Ferritin Total Bilirubin Alkaline Phosphatase Lactate Dehydrogenase Total Creatine Kinase CK-MB (CK-2) Rel Index Troponin T C-Reactive Protein Total Protein Albumin Prealbumin LDL Cholesterol Direct Arterial Blood Glucose Arterial Blood Ionized Calcium Urine WBC (Auto) 03/15/20 03/16/20 03/16/20 23:26 05:39 11:58 WBC RBC Hgb Hct MCV MCH RDW Plt Count Lymph % (Auto) Lymph # (Auto) [place] # (Auto) Seg Neutrophils % Seg Neuts % (Manual) Lymphocytes % (Manual) Monocytes % (Manual) Basophils % (Manual) Seg Neutrophils # Seg Neutrophils # Man Lymphocytes # (Manual) Monocytes # (Manual) Eosinophils # (Manual) Basophils # (Manual) PT INR D-Dimer ABG pH POC ABG pCO2 POC ABG pO2 ABG pO2 ABG HCO3 ABG O2 Saturation ABG Base Excess ABG Hemoglobin ABG Oxyhemoglobin ABG Potassium ABG Glucose Oxyhemoglobin Carboxyhemoglobin Sodium Potassium Chloride Carbon Dioxide BUN Creatinine Glucose POC Glucose 136 H 116 H 109 H Calcium Ferritin Total Bilirubin Alkaline Phosphatase Lactate Dehydrogenase Total Creatine Kinase CK-MB (CK-2) Rel Index Troponin T C-Reactive Protein Total Protein Albumin Prealbumin LDL Cholesterol Direct Arterial Blood Glucose Arterial Blood Ionized Calcium Urine WBC (Auto) 03/16/20 03/17/20 03/17/20 23:56 04:40 04:40 WBC 18.0 H RBC 3.33 L Hgb 9.5 L Hct 28.8 L MCV MCH RDW 16.4 H Plt Count 499 H Lymph % (Auto) Lymph # (Auto) [place] # (Auto) Seg Neutrophils % Seg Neuts % (Manual) 82.0 H Lymphocytes % (Manual) 8.0 L Monocytes % (Manual) Basophils % (Manual) Seg Neutrophils # Seg Neutrophils # Man 14.8 H Lymphocytes # (Manual) Monocytes # (Manual) 1.3 H Eosinophils # (Manual) Basophils # (Manual) 0.2 H PT INR D-Dimer ABG pH POC ABG pCO2 POC ABG pO2 ABG pO2 ABG HCO3 ABG O2 Saturation ABG Base Excess ABG Hemoglobin ABG Oxyhemoglobin ABG Potassium ABG Glucose Oxyhemoglobin Carboxyhemoglobin Sodium Potassium Chloride 97.7 L Carbon Dioxide 32 H BUN Creatinine < 0.2 L Glucose 114 H POC Glucose 131 H Calcium Ferritin Total Bilirubin Alkaline Phosphatase Lactate Dehydrogenase Total Creatine Kinase CK-MB (CK-2) Rel Index Troponin T C-Reactive Protein Total Protein Albumin Prealbumin LDL Cholesterol Direct Arterial Blood Glucose Arterial Blood Ionized Calcium Urine WBC (Auto) 03/18/20 03/18/20 03/18/20 00:21 05:21 11:55 WBC RBC Hgb Hct MCV MCH RDW Plt Count Lymph % (Auto) Lymph # (Auto) [place] # (Auto) Seg Neutrophils % Seg Neuts % (Manual) Lymphocytes % (Manual) Monocytes % (Manual) Basophils % (Manual) Seg Neutrophils # Seg Neutrophils # Man Lymphocytes # (Manual) Monocytes # (Manual) Eosinophils # (Manual) Basophils # (Manual) PT INR D-Dimer ABG pH POC ABG pCO2 POC ABG pO2 ABG pO2 ABG HCO3 ABG O2 Saturation ABG Base Excess ABG Hemoglobin ABG Oxyhemoglobin ABG Potassium ABG Glucose Oxyhemoglobin Carboxyhemoglobin Sodium Potassium Chloride Carbon Dioxide BUN Creatinine Glucose POC Glucose 124 H 138 H 119 H Calcium Ferritin Total Bilirubin Alkaline Phosphatase Lactate Dehydrogenase Total Creatine Kinase CK-MB (CK-2) Rel Index Troponin T C-Reactive Protein Total Protein Albumin Prealbumin LDL Cholesterol Direct Arterial Blood Glucose Arterial Blood Ionized Calcium Urine WBC (Auto) 03/18/20 03/18/20 03/19/20 17:03 23:58 05:24 WBC RBC Hgb Hct MCV MCH RDW Plt Count Lymph % (Auto) Lymph # (Auto) [place] # (Auto) Seg Neutrophils % Seg Neuts % (Manual) Lymphocytes % (Manual) Monocytes % (Manual) Basophils % (Manual) Seg Neutrophils # Seg Neutrophils # Man Lymphocytes # (Manual) Monocytes # (Manual) Eosinophils # (Manual) Basophils # (Manual) PT INR D-Dimer ABG pH POC ABG pCO2 POC ABG pO2 ABG pO2 ABG HCO3 ABG O2 Saturation ABG Base Excess ABG Hemoglobin ABG Oxyhemoglobin ABG Potassium ABG Glucose Oxyhemoglobin Carboxyhemoglobin Sodium Potassium Chloride Carbon Dioxide BUN Creatinine Glucose POC Glucose 128 H 128 H 115 H Calcium Ferritin Total Bilirubin Alkaline Phosphatase Lactate Dehydrogenase Total Creatine Kinase CK-MB (CK-2) Rel Index Troponin T C-Reactive Protein Total Protein Albumin Prealbumin LDL Cholesterol Direct Arterial Blood Glucose Arterial Blood Ionized Calcium Urine WBC (Auto) 03/19/20 03/19/20 03/19/20 08:05 08:05 11:56 WBC 16.8 H RBC 3.36 L Hgb 9.4 L Hct 28.8 L MCV MCH RDW 17.4 H Plt Count 567 H Lymph % (Auto) 7.8 L Lymph # (Auto) [place] # (Auto) 1.2 H Seg Neutrophils % 83.5 H Seg Neuts % (Manual) Lymphocytes % (Manual) Monocytes % (Manual) Basophils % (Manual) Seg Neutrophils # 14.1 H Seg Neutrophils # Man Lymphocytes # (Manual) Monocytes # (Manual) Eosinophils # (Manual) Basophils # (Manual) PT INR D-Dimer ABG pH POC ABG pCO2 POC ABG pO2 ABG pO2 ABG HCO3 ABG O2 Saturation ABG Base Excess ABG Hemoglobin ABG Oxyhemoglobin ABG Potassium ABG Glucose Oxyhemoglobin Carboxyhemoglobin Sodium Potassium Chloride Carbon Dioxide 36 H BUN Creatinine < 0.2 L Glucose 135 H POC Glucose 128 H Calcium Ferritin Total Bilirubin Alkaline Phosphatase Lactate Dehydrogenase Total Creatine Kinase CK-MB (CK-2) Rel Index Troponin T C-Reactive Protein Total Protein Albumin Prealbumin LDL Cholesterol Direct Arterial Blood Glucose Arterial Blood Ionized Calcium Urine WBC (Auto) 03/19/20 03/20/20 03/20/20 23:59 05:12 16:52 WBC RBC Hgb Hct MCV MCH RDW Plt Count Lymph % (Auto) Lymph # (Auto) [place] # (Auto) Seg Neutrophils % Seg Neuts % (Manual) Lymphocytes % (Manual) Monocytes % (Manual) Basophils % (Manual) Seg Neutrophils # Seg Neutrophils # Man Lymphocytes # (Manual) Monocytes # (Manual) Eosinophils # (Manual) Basophils # (Manual) PT INR D-Dimer ABG pH POC ABG pCO2 POC ABG pO2 ABG pO2 ABG HCO3 ABG O2 Saturation ABG Base Excess ABG Hemoglobin ABG Oxyhemoglobin ABG Potassium ABG Glucose Oxyhemoglobin Carboxyhemoglobin Sodium Potassium Chloride Carbon Dioxide BUN Creatinine Glucose POC Glucose 120 H 131 H 124 H Calcium Ferritin Total Bilirubin Alkaline Phosphatase Lactate Dehydrogenase Total Creatine Kinase CK-MB (CK-2) Rel Index Troponin T C-Reactive Protein Total Protein Albumin Prealbumin LDL Cholesterol Direct Arterial Blood Glucose Arterial Blood Ionized Calcium Urine WBC (Auto) 03/20/20 03/21/20 03/21/20 23:35 04:50 07:35 WBC 15.2 H RBC 3.39 L Hgb 9.4 L Hct 29.4 L MCV MCH RDW 17.6 H Plt Count 518 H Lymph % (Auto) Lymph # (Auto) [place] # (Auto) Seg Neutrophils % Seg Neuts % (Manual) 83.0 H Lymphocytes % (Manual) 10.0 L Monocytes % (Manual) Basophils % (Manual) 2.0 H Seg Neutrophils # Seg Neutrophils # Man 12.6 H Lymphocytes # (Manual) Monocytes # (Manual) Eosinophils # (Manual) Basophils # (Manual) 0.3 H PT INR D-Dimer ABG pH POC ABG pCO2 POC ABG pO2 ABG pO2 ABG HCO3 ABG O2 Saturation ABG Base Excess ABG Hemoglobin ABG Oxyhemoglobin ABG Potassium ABG Glucose Oxyhemoglobin Carboxyhemoglobin Sodium Potassium Chloride Carbon Dioxide BUN Creatinine Glucose POC Glucose 125 H 127 H Calcium Ferritin Total Bilirubin Alkaline Phosphatase Lactate Dehydrogenase Total Creatine Kinase CK-MB (CK-2) Rel Index Troponin T C-Reactive Protein Total Protein Albumin Prealbumin LDL Cholesterol Direct Arterial Blood Glucose Arterial Blood Ionized Calcium Urine WBC (Auto) 03/21/20 03/21/20 03/21/20 07:35 11:45 17:22 WBC RBC Hgb Hct MCV MCH RDW Plt Count Lymph % (Auto) Lymph # (Auto) [place] # (Auto) Seg Neutrophils % Seg Neuts % (Manual) Lymphocytes % (Manual) Monocytes % (Manual) Basophils % (Manual) Seg Neutrophils # Seg Neutrophils # Man Lymphocytes # (Manual) Monocytes # (Manual) Eosinophils # (Manual) Basophils # (Manual) PT INR D-Dimer ABG pH POC ABG pCO2 POC ABG pO2 ABG pO2 ABG HCO3 ABG O2 Saturation ABG Base Excess ABG Hemoglobin ABG Oxyhemoglobin ABG Potassium ABG Glucose Oxyhemoglobin Carboxyhemoglobin Sodium 136 L Potassium Chloride 97.7 L Carbon Dioxide 32 H BUN Creatinine < 0.2 L Glucose 103 H POC Glucose 126 H 120 H Calcium Ferritin Total Bilirubin Alkaline Phosphatase Lactate Dehydrogenase Total Creatine Kinase CK-MB (CK-2) Rel Index Troponin T C-Reactive Protein Total Protein Albumin Prealbumin LDL Cholesterol Direct Arterial Blood Glucose Arterial Blood Ionized Calcium Urine WBC (Auto) 1103/22/20 03/22/20 05:09 06:34 06:34 WBC 17.5 H RBC 3.52 L Hgb 10.0 L Hct 30.7 L MCV MCH RDW 17.5 H Plt Count 499 H Lymph % (Auto) Lymph # (Auto) [place] # (Auto) Seg Neutrophils % Seg Neuts % (Manual) 80.0 H Lymphocytes % (Manual) 10.0 L Monocytes % (Manual) Basophils % (Manual) Seg Neutrophils # Seg Neutrophils # Man 14.0 H Lymphocytes # (Manual) Monocytes # (Manual) Eosinophils # (Manual) Basophils # (Manual) PT INR D-Dimer ABG pH POC ABG pCO2 POC ABG pO2 ABG pO2 ABG HCO3 ABG O2 Saturation ABG Base Excess ABG Hemoglobin ABG Oxyhemoglobin ABG Potassium ABG Glucose Oxyhemoglobin Carboxyhemoglobin Sodium Potassium Chloride 96.6 L Carbon Dioxide 38 H BUN Creatinine < 0.2 L Glucose 139 H POC Glucose 125 H Calcium Ferritin Total Bilirubin Alkaline Phosphatase Lactate Dehydrogenase Total Creatine Kinase CK-MB (CK-2) Rel Index Troponin T C-Reactive Protein Total Protein Albumin Prealbumin LDL Cholesterol Direct Arterial Blood Glucose Arterial Blood Ionized Calcium Urine WBC (Auto) 03/22/20 03/22/20 03/22/20 11:45 18:00 23:32 WBC RBC Hgb Hct MCV MCH RDW Plt Count Lymph % (Auto) Lymph # (Auto) [place] # (Auto) Seg Neutrophils % Seg Neuts % (Manual) Lymphocytes % (Manual) Monocytes % (Manual) Basophils % (Manual) Seg Neutrophils # Seg Neutrophils # Man Lymphocytes # (Manual) Monocytes # (Manual) Eosinophils # (Manual) Basophils # (Manual) PT INR D-Dimer ABG pH POC ABG pCO2 POC ABG pO2 ABG pO2 ABG HCO3 ABG O2 Saturation ABG Base Excess ABG Hemoglobin ABG Oxyhemoglobin ABG Potassium ABG Glucose Oxyhemoglobin Carboxyhemoglobin Sodium Potassium Chloride Carbon Dioxide BUN Creatinine Glucose POC Glucose 135 H 133 H Calcium Ferritin Total Bilirubin Alkaline Phosphatase Lactate Dehydrogenase Total Creatine Kinase CK-MB (CK-2) Rel Index Troponin T 0.113 H* C-Reactive Protein Total Protein Albumin Prealbumin LDL Cholesterol Direct Arterial Blood Glucose Arterial Blood Ionized Calcium Urine WBC (Auto) 03/23/20 03/23/20 03/23/20 01:47 06:21 07:57 WBC RBC Hgb Hct MCV MCH RDW Plt Count Lymph % (Auto) Lymph # (Auto) [place] # (Auto) Seg Neutrophils % Seg Neuts % (Manual) Lymphocytes % (Manual) Monocytes % (Manual) Basophils % (Manual) Seg Neutrophils # Seg Neutrophils # Man Lymphocytes # (Manual) Monocytes # (Manual) Eosinophils # (Manual) Basophils # (Manual) PT INR D-Dimer ABG pH POC ABG pCO2 POC ABG pO2 ABG pO2 ABG HCO3 ABG O2 Saturation ABG Base Excess ABG Hemoglobin ABG Oxyhemoglobin ABG Potassium ABG Glucose Oxyhemoglobin Carboxyhemoglobin Sodium Potassium Chloride Carbon Dioxide BUN Creatinine Glucose POC Glucose 130 H Calcium Ferritin Total Bilirubin Alkaline Phosphatase Lactate Dehydrogenase Total Creatine Kinase CK-MB (CK-2) Rel Index Troponin T 0.143 H* D 0.105 H* D C-Reactive Protein Total Protein Albumin Prealbumin LDL Cholesterol Direct Arterial Blood Glucose Arterial Blood Ionized Calcium Urine WBC (Auto) 03/23/20 03/24/20 03/24/20 12:02 05:33 07:15 WBC 18.0 H RBC Hgb 11.0 L Hct 34.0 L MCV MCH RDW 17.4 H Plt Count 520 H Lymph % (Auto) Lymph # (Auto) [place] # (Auto) Seg Neutrophils % Seg Neuts % (Manual) 88.0 H Lymphocytes % (Manual) 7.0 L Monocytes % (Manual) Basophils % (Manual) Seg Neutrophils # Seg Neutrophils # Man 15.8 H Lymphocytes # (Manual) Monocytes # (Manual) Eosinophils # (Manual) Basophils # (Manual) PT INR D-Dimer ABG pH POC ABG pCO2 POC ABG pO2 ABG pO2 ABG HCO3 ABG O2 Saturation ABG Base Excess ABG Hemoglobin ABG Oxyhemoglobin ABG Potassium ABG Glucose Oxyhemoglobin Carboxyhemoglobin Sodium Potassium Chloride Carbon Dioxide BUN Creatinine Glucose POC Glucose 137 H 112 H Calcium Ferritin Total Bilirubin Alkaline Phosphatase Lactate Dehydrogenase Total Creatine Kinase CK-MB (CK-2) Rel Index Troponin T C-Reactive Protein Total Protein Albumin Prealbumin LDL Cholesterol Direct Arterial Blood Glucose Arterial Blood Ionized Calcium Urine WBC (Auto) 03/24/20 03/24/20 03/24/20 07:15 11:22 23:30 WBC RBC Hgb Hct MCV MCH RDW Plt Count Lymph % (Auto) Lymph # (Auto) [place] # (Auto) Seg Neutrophils % Seg Neuts % (Manual) Lymphocytes % (Manual) Monocytes % (Manual) Basophils % (Manual) Seg Neutrophils # Seg Neutrophils # Man Lymphocytes # (Manual) Monocytes # (Manual) Eosinophils # (Manual) Basophils # (Manual) PT INR D-Dimer ABG pH POC ABG pCO2 POC ABG pO2 ABG pO2 ABG HCO3 ABG O2 Saturation ABG Base Excess ABG Hemoglobin ABG Oxyhemoglobin ABG Potassium ABG Glucose Oxyhemoglobin Carboxyhemoglobin Sodium Potassium Chloride 96.6 L Carbon Dioxide 38 H BUN Creatinine < 0.2 L Glucose 141 H POC Glucose 130 H 120 H Calcium Ferritin Total Bilirubin Alkaline Phosphatase Lactate Dehydrogenase Total Creatine Kinase CK-MB (CK-2) Rel Index Troponin T C-Reactive Protein Total Protein Albumin Prealbumin LDL Cholesterol Direct Arterial Blood Glucose Arterial Blood Ionized Calcium Urine WBC (Auto) 03/25/20 03/25/20 03/25/20 05:48 17:53 23:18 WBC RBC Hgb Hct MCV MCH RDW Plt Count Lymph % (Auto) Lymph # (Auto) [place] # (Auto) Seg Neutrophils % Seg Neuts % (Manual) Lymphocytes % (Manual) Monocytes % (Manual) Basophils % (Manual) Seg Neutrophils # Seg Neutrophils # Man Lymphocytes # (Manual) Monocytes # (Manual) Eosinophils # (Manual) Basophils # (Manual) PT INR D-Dimer ABG pH POC ABG pCO2 POC ABG pO2 ABG pO2 ABG HCO3 ABG O2 Saturation ABG Base Excess ABG Hemoglobin ABG Oxyhemoglobin ABG Potassium ABG Glucose Oxyhemoglobin Carboxyhemoglobin Sodium Potassium Chloride Carbon Dioxide BUN Creatinine Glucose POC Glucose 124 H 109 H 131 H Calcium Ferritin Total Bilirubin Alkaline Phosphatase Lactate Dehydrogenase Total Creatine Kinase CK-MB (CK-2) Rel Index Troponin T C-Reactive Protein Total Protein Albumin Prealbumin LDL Cholesterol Direct Arterial Blood Glucose Arterial Blood Ionized Calcium Urine WBC (Auto) 03/26/20 03/26/20 03/26/20 05:21 08:49 08:49 WBC 19.7 H RBC Hgb 10.7 L Hct 33.5 L MCV MCH 27 L RDW 17.1 H Plt Count 480 H Lymph % (Auto) 5.7 L Lymph # (Auto) 1.1 L [place] # (Auto) 1.2 H Seg Neutrophils % 87.7 H Seg Neuts % (Manual) Lymphocytes % (Manual) Monocytes % (Manual) Basophils % (Manual) Seg Neutrophils # 17.2 H Seg Neutrophils # Man Lymphocytes # (Manual) Monocytes # (Manual) Eosinophils # (Manual) Basophils # (Manual) PT INR D-Dimer ABG pH POC ABG pCO2 POC ABG pO2 ABG pO2 ABG HCO3 ABG O2 Saturation ABG Base Excess ABG Hemoglobin ABG Oxyhemoglobin ABG Potassium ABG Glucose Oxyhemoglobin Carboxyhemoglobin Sodium Potassium Chloride 97.2 L Carbon Dioxide 36 H BUN Creatinine < 0.2 L Glucose 127 H POC Glucose 116 H Calcium Ferritin Total Bilirubin Alkaline Phosphatase Lactate Dehydrogenase Total Creatine Kinase CK-MB (CK-2) Rel Index Troponin T C-Reactive Protein Total Protein Albumin Prealbumin LDL Cholesterol Direct Arterial Blood Glucose Arterial Blood Ionized Calcium Urine WBC (Auto) 03/26/20 03/26/20 03/26/20 11:38 18:44 23:06 WBC RBC Hgb Hct MCV MCH RDW Plt Count Lymph % (Auto) Lymph # (Auto) [place] # (Auto) Seg Neutrophils % Seg Neuts % (Manual) Lymphocytes % (Manual) Monocytes % (Manual) Basophils % (Manual) Seg Neutrophils # Seg Neutrophils # Man Lymphocytes # (Manual) Monocytes # (Manual) Eosinophils # (Manual) Basophils # (Manual) PT INR D-Dimer ABG pH POC ABG pCO2 POC ABG pO2 ABG pO2 ABG HCO3 ABG O2 Saturation ABG Base Excess ABG Hemoglobin ABG Oxyhemoglobin ABG Potassium ABG Glucose Oxyhemoglobin Carboxyhemoglobin Sodium Potassium Chloride Carbon Dioxide BUN Creatinine Glucose POC Glucose 120 H 111 H 134 H Calcium Ferritin Total Bilirubin Alkaline Phosphatase Lactate Dehydrogenase Total Creatine Kinase CK-MB (CK-2) Rel Index Troponin T C-Reactive Protein Total Protein Albumin Prealbumin LDL Cholesterol Direct Arterial Blood Glucose Arterial Blood Ionized Calcium Urine WBC (Auto) 03/27/20 03/27/20 03/27/20 05:41 05:59 05:59 WBC 18.6 H RBC Hgb 10.1 L Hct 31.4 L MCV MCH RDW 17.2 H Plt Count Lymph % (Auto) 8.0 L Lymph # (Auto) [place] # (Auto) 1.2 H Seg Neutrophils % 84.7 H Seg Neuts % (Manual) Lymphocytes % (Manual) Monocytes % (Manual) Basophils % (Manual) Seg Neutrophils # 15.8 H Seg Neutrophils # Man Lymphocytes # (Manual) Monocytes # (Manual) Eosinophils # (Manual) Basophils # (Manual) PT INR D-Dimer ABG pH POC ABG pCO2 POC ABG pO2 ABG pO2 ABG HCO3 ABG O2 Saturation ABG Base Excess ABG Hemoglobin ABG Oxyhemoglobin ABG Potassium ABG Glucose Oxyhemoglobin Carboxyhemoglobin Sodium Potassium Chloride Carbon Dioxide 34 H BUN Creatinine < 0.2 L Glucose 127 H POC Glucose 129 H Calcium Ferritin Total Bilirubin Alkaline Phosphatase Lactate Dehydrogenase Total Creatine Kinase CK-MB (CK-2) Rel Index Troponin T C-Reactive Protein Total Protein Albumin Prealbumin LDL Cholesterol Direct Arterial Blood Glucose Arterial Blood Ionized Calcium Urine WBC (Auto) 03/27/20 03/27/20 03/28/20 17:28 23:22 05:23 WBC RBC Hgb Hct MCV MCH RDW Plt Count Lymph % (Auto) Lymph # (Auto) [place] # (Auto) Seg Neutrophils % Seg Neuts % (Manual) Lymphocytes % (Manual) Monocytes % (Manual) Basophils % (Manual) Seg Neutrophils # Seg Neutrophils # Man Lymphocytes # (Manual) Monocytes # (Manual) Eosinophils # (Manual) Basophils # (Manual) PT INR D-Dimer ABG pH POC ABG pCO2 POC ABG pO2 ABG pO2 ABG HCO3 ABG O2 Saturation ABG Base Excess ABG Hemoglobin ABG Oxyhemoglobin ABG Potassium ABG Glucose Oxyhemoglobin Carboxyhemoglobin Sodium Potassium Chloride Carbon Dioxide BUN Creatinine Glucose POC Glucose 108 H 119 H 129 H Calcium Ferritin Total Bilirubin Alkaline Phosphatase Lactate Dehydrogenase Total Creatine Kinase CK-MB (CK-2) Rel Index Troponin T C-Reactive Protein Total Protein Albumin Prealbumin LDL Cholesterol Direct Arterial Blood Glucose Arterial Blood Ionized Calcium Urine WBC (Auto) 03/28/20 03/28/20 03/28/20 10:28 10:28 11:36 WBC 23.6 H RBC 3.62 L Hgb 10.0 L Hct 30.8 L MCV MCH RDW 16.4 H Plt Count Lymph % (Auto) Lymph # (Auto) [place] # (Auto) Seg Neutrophils % Seg Neuts % (Manual) 89.0 H Lymphocytes % (Manual) 5.0 L Monocytes % (Manual) Basophils % (Manual) Seg Neutrophils # Seg Neutrophils # Man 21.0 H Lymphocytes # (Manual) Monocytes # (Manual) 1.2 H Eosinophils # (Manual) Basophils # (Manual) 0.2 H PT INR D-Dimer ABG pH POC ABG pCO2 POC ABG pO2 ABG pO2 ABG HCO3 ABG O2 Saturation ABG Base Excess ABG Hemoglobin ABG Oxyhemoglobin ABG Potassium ABG Glucose Oxyhemoglobin Carboxyhemoglobin Sodium 134 L Potassium Chloride 94.2 L Carbon Dioxide 35 H BUN Creatinine < 0.2 L Glucose 134 H POC Glucose Calcium Ferritin Total Bilirubin Alkaline Phosphatase Lactate Dehydrogenase Total Creatine Kinase CK-MB (CK-2) Rel Index Troponin T C-Reactive Protein Total Protein Albumin Prealbumin LDL Cholesterol Direct Arterial Blood Glucose Arterial Blood Ionized Calcium Urine WBC (Auto) 39.0 H 03/28/20 03/28/20 03/28/20 11:51 17:08 17:17 WBC RBC Hgb Hct MCV MCH RDW Plt Count Lymph % (Auto) Lymph # (Auto) [place] # (Auto) Seg Neutrophils % Seg Neuts % (Manual) Lymphocytes % (Manual) Monocytes % (Manual) Basophils % (Manual) Seg Neutrophils # Seg Neutrophils # Man Lymphocytes # (Manual) Monocytes # (Manual) Eosinophils # (Manual) Basophils # (Manual) PT INR D-Dimer ABG pH POC ABG pCO2 POC ABG pO2 ABG pO2 ABG HCO3 ABG O2 Saturation ABG Base Excess ABG Hemoglobin ABG Oxyhemoglobin ABG Potassium ABG Glucose Oxyhemoglobin Carboxyhemoglobin Sodium Potassium Chloride Carbon Dioxide BUN Creatinine Glucose POC Glucose 123 H 112 H Calcium Ferritin Total Bilirubin Alkaline Phosphatase Lactate Dehydrogenase Total Creatine Kinase 47 L CK-MB (CK-2) Rel Index 4.6 H Troponin T 0.090 H C-Reactive Protein Total Protein Albumin Prealbumin LDL Cholesterol Direct Arterial Blood Glucose Arterial Blood Ionized Calcium Urine WBC (Auto) 03/28/20 03/29/20 03/29/20 23:22 05:22 10:58 WBC RBC Hgb Hct MCV MCH RDW Plt Count Lymph % (Auto) Lymph # (Auto) [place] # (Auto) Seg Neutrophils % Seg Neuts % (Manual) Lymphocytes % (Manual) Monocytes % (Manual) Basophils % (Manual) Seg Neutrophils # Seg Neutrophils # Man Lymphocytes # (Manual) Monocytes # (Manual) Eosinophils # (Manual) Basophils # (Manual) PT INR D-Dimer ABG pH POC ABG pCO2 POC ABG pO2 ABG pO2 ABG HCO3 ABG O2 Saturation ABG Base Excess ABG Hemoglobin ABG Oxyhemoglobin ABG Potassium ABG Glucose Oxyhemoglobin Carboxyhemoglobin Sodium Potassium Chloride Carbon Dioxide BUN Creatinine Glucose POC Glucose 122 H 116 H 133 H Calcium Ferritin Total Bilirubin Alkaline Phosphatase Lactate Dehydrogenase Total Creatine Kinase CK-MB (CK-2) Rel Index Troponin T C-Reactive Protein Total Protein Albumin Prealbumin LDL Cholesterol Direct Arterial Blood Glucose Arterial Blood Ionized Calcium Urine WBC (Auto) 03/29/20 03/29/20 03/30/20 17:18 23:14 04:57 WBC RBC Hgb Hct MCV MCH RDW Plt Count Lymph % (Auto) Lymph # (Auto) [place] # (Auto) Seg Neutrophils % Seg Neuts % (Manual) Lymphocytes % (Manual) Monocytes % (Manual) Basophils % (Manual) Seg Neutrophils # Seg Neutrophils # Man Lymphocytes # (Manual) Monocytes # (Manual) Eosinophils # (Manual) Basophils # (Manual) PT INR D-Dimer ABG pH POC ABG pCO2 POC ABG pO2 ABG pO2 ABG HCO3 ABG O2 Saturation ABG Base Excess ABG Hemoglobin ABG Oxyhemoglobin ABG Potassium ABG Glucose Oxyhemoglobin Carboxyhemoglobin Sodium Potassium Chloride Carbon Dioxide BUN Creatinine Glucose POC Glucose 111 H 114 H 130 H Calcium Ferritin Total Bilirubin Alkaline Phosphatase Lactate Dehydrogenase Total Creatine Kinase CK-MB (CK-2) Rel Index Troponin T C-Reactive Protein Total Protein Albumin Prealbumin LDL Cholesterol Direct Arterial Blood Glucose Arterial Blood Ionized Calcium Urine WBC (Auto) 03/30/20 03/30/20 03/30/20 11:38 14:47 14:47 WBC 19.9 H RBC Hgb 10.9 L Hct 34.4 L MCV MCH 27 L RDW 16.5 H Plt Count 441 H Lymph % (Auto) 6.4 L Lymph # (Auto) [place] # (Auto) 1.4 H Seg Neutrophils % 86.1 H Seg Neuts % (Manual) Lymphocytes % (Manual) Monocytes % (Manual) Basophils % (Manual) Seg Neutrophils # 17.1 H Seg Neutrophils # Man Lymphocytes # (Manual) Monocytes # (Manual) Eosinophils # (Manual) Basophils # (Manual) PT INR D-Dimer ABG pH POC ABG pCO2 POC ABG pO2 ABG pO2 ABG HCO3 ABG O2 Saturation ABG Base Excess ABG Hemoglobin ABG Oxyhemoglobin ABG Potassium ABG Glucose Oxyhemoglobin Carboxyhemoglobin Sodium 133 L Potassium Chloride 94.6 L Carbon Dioxide 33 H BUN Creatinine < 0.2 L Glucose 194 H POC Glucose 139 H Calcium Ferritin Total Bilirubin Alkaline Phosphatase Lactate Dehydrogenase Total Creatine Kinase CK-MB (CK-2) Rel Index Troponin T C-Reactive Protein Total Protein Albumin 2.8 L Prealbumin LDL Cholesterol Direct Arterial Blood Glucose Arterial Blood Ionized Calcium Urine WBC (Auto) 03/30/20 03/31/20 03/31/20 17:07 05:02 15:21 WBC RBC Hgb Hct MCV MCH RDW Plt Count Lymph % (Auto) Lymph # (Auto) [place] # (Auto) Seg Neutrophils % Seg Neuts % (Manual) Lymphocytes % (Manual) Monocytes % (Manual) Basophils % (Manual) Seg Neutrophils # Seg Neutrophils # Man Lymphocytes # (Manual) Monocytes # (Manual) Eosinophils # (Manual) Basophils # (Manual) PT INR D-Dimer ABG pH POC ABG pCO2 POC ABG pO2 ABG pO2 ABG HCO3 ABG O2 Saturation ABG Base Excess ABG Hemoglobin ABG Oxyhemoglobin ABG Potassium ABG Glucose Oxyhemoglobin Carboxyhemoglobin Sodium Potassium Chloride Carbon Dioxide BUN Creatinine Glucose POC Glucose 163 H 108 H 110 H Calcium Ferritin Total Bilirubin Alkaline Phosphatase Lactate Dehydrogenase Total Creatine Kinase CK-MB (CK-2) Rel Index Troponin T C-Reactive Protein Total Protein Albumin Prealbumin LDL Cholesterol Direct Arterial Blood Glucose Arterial Blood Ionized Calcium Urine WBC (Auto) 03/31/20 03/31/20 04/01/20 17:58 23:19 05:09 WBC RBC Hgb Hct MCV MCH RDW Plt Count Lymph % (Auto) Lymph # (Auto) [place] # (Auto) Seg Neutrophils % Seg Neuts % (Manual) Lymphocytes % (Manual) Monocytes % (Manual) Basophils % (Manual) Seg Neutrophils # Seg Neutrophils # Man Lymphocytes # (Manual) Monocytes # (Manual) Eosinophils # (Manual) Basophils # (Manual) PT INR D-Dimer ABG pH POC ABG pCO2 POC ABG pO2 ABG pO2 ABG HCO3 ABG O2 Saturation ABG Base Excess ABG Hemoglobin ABG Oxyhemoglobin ABG Potassium ABG Glucose Oxyhemoglobin Carboxyhemoglobin Sodium Potassium Chloride Carbon Dioxide BUN Creatinine Glucose POC Glucose 110 H 131 H 124 H Calcium Ferritin Total Bilirubin Alkaline Phosphatase Lactate Dehydrogenase Total Creatine Kinase CK-MB (CK-2) Rel Index Troponin T C-Reactive Protein Total Protein Albumin Prealbumin LDL Cholesterol Direct Arterial Blood Glucose Arterial Blood Ionized Calcium Urine WBC (Auto) 04/01/20 04/01/20 04/01/20 11:50 17:01 23:21 WBC RBC Hgb Hct MCV MCH RDW Plt Count Lymph % (Auto) Lymph # (Auto) [place] # (Auto) Seg Neutrophils % Seg Neuts % (Manual) Lymphocytes % (Manual) Monocytes % (Manual) Basophils % (Manual) Seg Neutrophils # Seg Neutrophils # Man Lymphocytes # (Manual) Monocytes # (Manual) Eosinophils # (Manual) Basophils # (Manual) PT INR D-Dimer ABG pH POC ABG pCO2 POC ABG pO2 ABG pO2 ABG HCO3 ABG O2 Saturation ABG Base Excess ABG Hemoglobin ABG Oxyhemoglobin ABG Potassium ABG Glucose Oxyhemoglobin Carboxyhemoglobin Sodium Potassium Chloride Carbon Dioxide BUN Creatinine Glucose POC Glucose 136 H 115 H 124 H Calcium Ferritin Total Bilirubin Alkaline Phosphatase Lactate Dehydrogenase Total Creatine Kinase CK-MB (CK-2) Rel Index Troponin T C-Reactive Protein Total Protein Albumin Prealbumin LDL Cholesterol Direct Arterial Blood Glucose Arterial Blood Ionized Calcium Urine WBC (Auto) 04/02/20 04/02/20 04/02/20 05:27 11:58 17:58 WBC RBC Hgb Hct MCV MCH RDW Plt Count Lymph % (Auto) Lymph # (Auto) [place] # (Auto) Seg Neutrophils % Seg Neuts % (Manual) Lymphocytes % (Manual) Monocytes % (Manual) Basophils % (Manual) Seg Neutrophils # Seg Neutrophils # Man Lymphocytes # (Manual) Monocytes # (Manual) Eosinophils # (Manual) Basophils # (Manual) PT INR D-Dimer ABG pH POC ABG pCO2 POC ABG pO2 ABG pO2 ABG HCO3 ABG O2 Saturation ABG Base Excess ABG Hemoglobin ABG Oxyhemoglobin ABG Potassium ABG Glucose Oxyhemoglobin Carboxyhemoglobin Sodium Potassium Chloride Carbon Dioxide BUN Creatinine Glucose POC Glucose 117 H 133 H 122 H Calcium Ferritin Total Bilirubin Alkaline Phosphatase Lactate Dehydrogenase Total Creatine Kinase CK-MB (CK-2) Rel Index Troponin T C-Reactive Protein Total Protein Albumin Prealbumin LDL Cholesterol Direct Arterial Blood Glucose Arterial Blood Ionized Calcium Urine WBC (Auto) 04/02/20 04/03/20 04/03/20 23:12 05:11 11:11 WBC RBC Hgb Hct MCV MCH RDW Plt Count Lymph % (Auto) Lymph # (Auto) [place] # (Auto) Seg Neutrophils % Seg Neuts % (Manual) Lymphocytes % (Manual) Monocytes % (Manual) Basophils % (Manual) Seg Neutrophils # Seg Neutrophils # Man Lymphocytes # (Manual) Monocytes # (Manual) Eosinophils # (Manual) Basophils # (Manual) PT INR D-Dimer ABG pH POC ABG pCO2 POC ABG pO2 ABG pO2 ABG HCO3 ABG O2 Saturation ABG Base Excess ABG Hemoglobin ABG Oxyhemoglobin ABG Potassium ABG Glucose Oxyhemoglobin Carboxyhemoglobin Sodium Potassium Chloride Carbon Dioxide BUN Creatinine Glucose POC Glucose 130 H 139 H 136 H Calcium Ferritin Total Bilirubin Alkaline Phosphatase Lactate Dehydrogenase Total Creatine Kinase CK-MB (CK-2) Rel Index Troponin T C-Reactive Protein Total Protein Albumin Prealbumin LDL Cholesterol Direct Arterial Blood Glucose Arterial Blood Ionized Calcium Urine WBC (Auto) 04/03/20 04/03/20 04/04/20 16:51 23:25 05:29 WBC RBC Hgb Hct MCV MCH RDW Plt Count Lymph % (Auto) Lymph # (Auto) [place] # (Auto) Seg Neutrophils % Seg Neuts % (Manual) Lymphocytes % (Manual) Monocytes % (Manual) Basophils % (Manual) Seg Neutrophils # Seg Neutrophils # Man Lymphocytes # (Manual) Monocytes # (Manual) Eosinophils # (Manual) Basophils # (Manual) PT INR D-Dimer ABG pH POC ABG pCO2 POC ABG pO2 ABG pO2 ABG HCO3 ABG O2 Saturation ABG Base Excess ABG Hemoglobin ABG Oxyhemoglobin ABG Potassium ABG Glucose Oxyhemoglobin Carboxyhemoglobin Sodium Potassium Chloride Carbon Dioxide BUN Creatinine Glucose POC Glucose 118 H 111 H 126 H Calcium Ferritin Total Bilirubin Alkaline Phosphatase Lactate Dehydrogenase Total Creatine Kinase CK-MB (CK-2) Rel Index Troponin T C-Reactive Protein Total Protein Albumin Prealbumin LDL Cholesterol Direct Arterial Blood Glucose Arterial Blood Ionized Calcium Urine WBC (Auto) 04/04/20 04/04/20 04/04/20 11:47 17:41 23:05 WBC RBC Hgb Hct MCV MCH RDW Plt Count Lymph % (Auto) Lymph # (Auto) [place] # (Auto) Seg Neutrophils % Seg Neuts % (Manual) Lymphocytes % (Manual) Monocytes % (Manual) Basophils % (Manual) Seg Neutrophils # Seg Neutrophils # Man Lymphocytes # (Manual) Monocytes # (Manual) Eosinophils # (Manual) Basophils # (Manual) PT INR D-Dimer ABG pH POC ABG pCO2 POC ABG pO2 ABG pO2 ABG HCO3 ABG O2 Saturation ABG Base Excess ABG Hemoglobin ABG Oxyhemoglobin ABG Potassium ABG Glucose Oxyhemoglobin Carboxyhemoglobin Sodium Potassium Chloride Carbon Dioxide BUN Creatinine Glucose POC Glucose 123 H 120 H 119 H Calcium Ferritin Total Bilirubin Alkaline Phosphatase Lactate Dehydrogenase Total Creatine Kinase CK-MB (CK-2) Rel Index Troponin T C-Reactive Protein Total Protein Albumin Prealbumin LDL Cholesterol Direct Arterial Blood Glucose Arterial Blood Ionized Calcium Urine WBC (Auto) 04/05/20 04/05/20 04/05/20 05:14 12:16 18:48 WBC RBC Hgb Hct MCV MCH RDW Plt Count Lymph % (Auto) Lymph # (Auto) [place] # (Auto) Seg Neutrophils % Seg Neuts % (Manual) Lymphocytes % (Manual) Monocytes % (Manual) Basophils % (Manual) Seg Neutrophils # Seg Neutrophils # Man Lymphocytes # (Manual) Monocytes # (Manual) Eosinophils # (Manual) Basophils # (Manual) PT INR D-Dimer ABG pH POC ABG pCO2 POC ABG pO2 ABG pO2 ABG HCO3 ABG O2 Saturation ABG Base Excess ABG Hemoglobin ABG Oxyhemoglobin ABG Potassium ABG Glucose Oxyhemoglobin Carboxyhemoglobin Sodium Potassium Chloride Carbon Dioxide BUN Creatinine Glucose POC Glucose 123 H 148 H 106 H Calcium Ferritin Total Bilirubin Alkaline Phosphatase Lactate Dehydrogenase Total Creatine Kinase CK-MB (CK-2) Rel Index Troponin T C-Reactive Protein Total Protein Albumin Prealbumin LDL Cholesterol Direct Arterial Blood Glucose Arterial Blood Ionized Calcium Urine WBC (Auto) 04/06/20 04/06/20 04/06/20 00:47 03:26 08:24 WBC RBC Hgb Hct MCV MCH RDW Plt Count Lymph % (Auto) Lymph # (Auto) [place] # (Auto) Seg Neutrophils % Seg Neuts % (Manual) Lymphocytes % (Manual) Monocytes % (Manual) Basophils % (Manual) Seg Neutrophils # Seg Neutrophils # Man Lymphocytes # (Manual) Monocytes # (Manual) Eosinophils # (Manual) Basophils # (Manual) PT INR D-Dimer ABG pH POC ABG pCO2 POC ABG pO2 ABG pO2 ABG HCO3 ABG O2 Saturation ABG Base Excess ABG Hemoglobin ABG Oxyhemoglobin ABG Potassium ABG Glucose Oxyhemoglobin Carboxyhemoglobin Sodium Potassium Chloride Carbon Dioxide BUN Creatinine Glucose POC Glucose 129 H 134 H 131 H Calcium Ferritin Total Bilirubin Alkaline Phosphatase Lactate Dehydrogenase Total Creatine Kinase CK-MB (CK-2) Rel Index Troponin T C-Reactive Protein Total Protein Albumin Prealbumin LDL Cholesterol Direct Arterial Blood Glucose Arterial Blood Ionized Calcium Urine WBC (Auto) 04/06/20 04/06/20 04/06/20 11:16 16:27 23:01 WBC RBC Hgb Hct MCV MCH RDW Plt Count Lymph % (Auto) Lymph # (Auto) [place] # (Auto) Seg Neutrophils % Seg Neuts % (Manual) Lymphocytes % (Manual) Monocytes % (Manual) Basophils % (Manual) Seg Neutrophils # Seg Neutrophils # Man Lymphocytes # (Manual) Monocytes # (Manual) Eosinophils # (Manual) Basophils # (Manual) PT INR D-Dimer ABG pH POC ABG pCO2 POC ABG pO2 ABG pO2 ABG HCO3 ABG O2 Saturation ABG Base Excess ABG Hemoglobin ABG Oxyhemoglobin ABG Potassium ABG Glucose Oxyhemoglobin Carboxyhemoglobin Sodium Potassium Chloride Carbon Dioxide BUN Creatinine Glucose POC Glucose 131 H 107 H 125 H Calcium Ferritin Total Bilirubin Alkaline Phosphatase Lactate Dehydrogenase Total Creatine Kinase CK-MB (CK-2) Rel Index Troponin T C-Reactive Protein Total Protein Albumin Prealbumin LDL Cholesterol Direct Arterial Blood Glucose Arterial Blood Ionized Calcium Urine WBC (Auto) 04/07/20 04/07/20 04/07/20 05:24 12:41 17:40 WBC RBC Hgb Hct MCV MCH RDW Plt Count Lymph % (Auto) Lymph # (Auto) [place] # (Auto) Seg Neutrophils % Seg Neuts % (Manual) Lymphocytes % (Manual) Monocytes % (Manual) Basophils % (Manual) Seg Neutrophils # Seg Neutrophils # Man Lymphocytes # (Manual) Monocytes # (Manual) Eosinophils # (Manual) Basophils # (Manual) PT INR D-Dimer ABG pH POC ABG pCO2 POC ABG pO2 ABG pO2 ABG HCO3 ABG O2 Saturation ABG Base Excess ABG Hemoglobin ABG Oxyhemoglobin ABG Potassium ABG Glucose Oxyhemoglobin Carboxyhemoglobin Sodium Potassium Chloride Carbon Dioxide BUN Creatinine Glucose POC Glucose 125 H 145 H 123 H Calcium Ferritin Total Bilirubin Alkaline Phosphatase Lactate Dehydrogenase Total Creatine Kinase CK-MB (CK-2) Rel Index Troponin T C-Reactive Protein Total Protein Albumin Prealbumin LDL Cholesterol Direct Arterial Blood Glucose Arterial Blood Ionized Calcium Urine WBC (Auto) 04/07/20 04/08/20 04/08/20 23:22 05:40 11:29 WBC RBC Hgb Hct MCV MCH RDW Plt Count Lymph % (Auto) Lymph # (Auto) [place] # (Auto) Seg Neutrophils % Seg Neuts % (Manual) Lymphocytes % (Manual) Monocytes % (Manual) Basophils % (Manual) Seg Neutrophils # Seg Neutrophils # Man Lymphocytes # (Manual) Monocytes # (Manual) Eosinophils # (Manual) Basophils # (Manual) PT INR D-Dimer ABG pH POC ABG pCO2 POC ABG pO2 ABG pO2 ABG HCO3 ABG O2 Saturation ABG Base Excess ABG Hemoglobin ABG Oxyhemoglobin ABG Potassium ABG Glucose Oxyhemoglobin Carboxyhemoglobin Sodium Potassium Chloride Carbon Dioxide BUN Creatinine Glucose POC Glucose 133 H 125 H 116 H Calcium Ferritin Total Bilirubin Alkaline Phosphatase Lactate Dehydrogenase Total Creatine Kinase CK-MB (CK-2) Rel Index Troponin T C-Reactive Protein Total Protein Albumin Prealbumin LDL Cholesterol Direct Arterial Blood Glucose Arterial Blood Ionized Calcium Urine WBC (Auto) 04/08/20 04/09/20 04/09/20 17:43 05:47 12:22 WBC RBC Hgb Hct MCV MCH RDW Plt Count Lymph % (Auto) Lymph # (Auto) [place] # (Auto) Seg Neutrophils % Seg Neuts % (Manual) Lymphocytes % (Manual) Monocytes % (Manual) Basophils % (Manual) Seg Neutrophils # Seg Neutrophils # Man Lymphocytes # (Manual) Monocytes # (Manual) Eosinophils # (Manual) Basophils # (Manual) PT INR D-Dimer ABG pH POC ABG pCO2 POC ABG pO2 ABG pO2 ABG HCO3 ABG O2 Saturation ABG Base Excess ABG Hemoglobin ABG Oxyhemoglobin ABG Potassium ABG Glucose Oxyhemoglobin Carboxyhemoglobin Sodium Potassium Chloride Carbon Dioxide BUN Creatinine Glucose POC Glucose 123 H 108 H 116 H Calcium Ferritin Total Bilirubin Alkaline Phosphatase Lactate Dehydrogenase Total Creatine Kinase CK-MB (CK-2) Rel Index Troponin T C-Reactive Protein Total Protein Albumin Prealbumin LDL Cholesterol Direct Arterial Blood Glucose Arterial Blood Ionized Calcium Urine WBC (Auto) 04/09/20 04/09/20 04/10/20 17:24 23:52 06:10 WBC RBC Hgb Hct MCV MCH RDW Plt Count Lymph % (Auto) Lymph # (Auto) [place] # (Auto) Seg Neutrophils % Seg Neuts % (Manual) Lymphocytes % (Manual) Monocytes % (Manual) Basophils % (Manual) Seg Neutrophils # Seg Neutrophils # Man Lymphocytes # (Manual) Monocytes # (Manual) Eosinophils # (Manual) Basophils # (Manual) PT INR D-Dimer ABG pH POC ABG pCO2 POC ABG pO2 ABG pO2 ABG HCO3 ABG O2 Saturation ABG Base Excess ABG Hemoglobin ABG Oxyhemoglobin ABG Potassium ABG Glucose Oxyhemoglobin Carboxyhemoglobin Sodium Potassium Chloride Carbon Dioxide BUN Creatinine Glucose POC Glucose 108 H 126 H 122 H Calcium Ferritin Total Bilirubin Alkaline Phosphatase Lactate Dehydrogenase Total Creatine Kinase CK-MB (CK-2) Rel Index Troponin T C-Reactive Protein Total Protein Albumin Prealbumin LDL Cholesterol Direct Arterial Blood Glucose Arterial Blood Ionized Calcium Urine WBC (Auto) 04/10/20 04/10/20 04/10/20 11:27 18:11 23:24 WBC RBC Hgb Hct MCV MCH RDW Plt Count Lymph % (Auto) Lymph # (Auto) [place] # (Auto) Seg Neutrophils % Seg Neuts % (Manual) Lymphocytes % (Manual) Monocytes % (Manual) Basophils % (Manual) Seg Neutrophils # Seg Neutrophils # Man Lymphocytes # (Manual) Monocytes # (Manual) Eosinophils # (Manual) Basophils # (Manual) PT INR D-Dimer ABG pH POC ABG pCO2 POC ABG pO2 ABG pO2 ABG HCO3 ABG O2 Saturation ABG Base Excess ABG Hemoglobin ABG Oxyhemoglobin ABG Potassium ABG Glucose Oxyhemoglobin Carboxyhemoglobin Sodium Potassium Chloride Carbon Dioxide BUN Creatinine Glucose POC Glucose 129 H 125 H 107 H Calcium Ferritin Total Bilirubin Alkaline Phosphatase Lactate Dehydrogenase Total Creatine Kinase CK-MB (CK-2) Rel Index Troponin T C-Reactive Protein Total Protein Albumin Prealbumin LDL Cholesterol Direct Arterial Blood Glucose Arterial Blood Ionized Calcium Urine WBC (Auto) 04/11/20 04/11/20 04/11/20 05:28 11:46 23:49 WBC RBC Hgb Hct MCV MCH RDW Plt Count Lymph % (Auto) Lymph # (Auto) [place] # (Auto) Seg Neutrophils % Seg Neuts % (Manual) Lymphocytes % (Manual) Monocytes % (Manual) Basophils % (Manual) Seg Neutrophils # Seg Neutrophils # Man Lymphocytes # (Manual) Monocytes # (Manual) Eosinophils # (Manual) Basophils # (Manual) PT INR D-Dimer ABG pH POC ABG pCO2 POC ABG pO2 ABG pO2 ABG HCO3 ABG O2 Saturation ABG Base Excess ABG Hemoglobin ABG Oxyhemoglobin ABG Potassium ABG Glucose Oxyhemoglobin Carboxyhemoglobin Sodium Potassium Chloride Carbon Dioxide BUN Creatinine Glucose POC Glucose 122 H 122 H 116 H Calcium Ferritin Total Bilirubin Alkaline Phosphatase Lactate Dehydrogenase Total Creatine Kinase CK-MB (CK-2) Rel Index Troponin T C-Reactive Protein Total Protein Albumin Prealbumin LDL Cholesterol Direct Arterial Blood Glucose Arterial Blood Ionized Calcium Urine WBC (Auto) 04/12/20 04/12/20 04/12/20 09:07 09:07 11:39 WBC 13.1 H RBC 3.59 L Hgb 9.5 L Hct 29.8 L MCV 83 L MCH 26 L RDW 16.6 H Plt Count 591 H Lymph % (Auto) Lymph # (Auto) [place] # (Auto) Seg Neutrophils % Seg Neuts % (Manual) 86.0 H Lymphocytes % (Manual) 7.0 L Monocytes % (Manual) Basophils % (Manual) Seg Neutrophils # Seg Neutrophils # Man 11.3 H Lymphocytes # (Manual) 0.9 L Monocytes # (Manual) Eosinophils # (Manual) Basophils # (Manual) PT INR D-Dimer ABG pH POC ABG pCO2 POC ABG pO2 ABG pO2 ABG HCO3 ABG O2 Saturation ABG Base Excess ABG Hemoglobin ABG Oxyhemoglobin ABG Potassium ABG Glucose Oxyhemoglobin Carboxyhemoglobin Sodium Potassium Chloride Carbon Dioxide 36 H BUN Creatinine < 0.2 L Glucose 132 H POC Glucose 136 H Calcium Ferritin Total Bilirubin Alkaline Phosphatase Lactate Dehydrogenase Total Creatine Kinase CK-MB (CK-2) Rel Index Troponin T C-Reactive Protein Total Protein Albumin 2.7 L Prealbumin LDL Cholesterol Direct Arterial Blood Glucose Arterial Blood Ionized Calcium Urine WBC (Auto) Allied health notes reviewed: RT
[2020-04-12] MEDS: MAGNESIUM HYDROXIDE (MOM) ORAL LIQD UDC PO PRN (21:04)
[2020-04-12] MEDS: ENOXAPARIN 40 MG/0.4 ML INJ SUB-Q SCH (21:05)
[2020-04-12] MEDS: GLYCOPYRROLATE 2 MG TAB PO SCH (21:05)
[2020-04-12] MEDS: ZOLPIDEM 5 MG TAB PO PRN (21:05)
[2020-04-12] MEDS: ACETAMINOPHEN 325 MG TAB PO PRN (21:06)
[2020-04-12] MEDS: SENNOSIDES 8.6 MG TAB PO SCH (21:06)
[2020-04-13] MEDS: MORPHINE 2 MG/1 ML INJ IV PRN ×3 (04:56→22:26)
--- NOTE | 2020-04-13 09:12 | Progress Note ---
Assessment and Plan Assessment and plan: --Constipation; Patient already received Dulcolax suppository and Colace If no relief, we will try milk of magnesia, enema as needed --Acute hypoxic hypercapnic respiratory failure; Tracheostomy on ventilatory support Wean as tolerated, continue supportive care Pulmonary following --History of ALS - Stable --Elevated D-dimers; CTA chest, lower extremity venous Doppler both are negative Lovenox DVT prophylaxis --Bilateral pneumonia; probably community-acquired Completed the treatment, continue supportive care --Sepsis secondary to pneumonia; completed the treatment resolved --Elevated troponin non-ST elevation CT type II Continue current management --Febrile illness; secondary to pneumonia Complete antibiotics , resolved --DVT prophylaxis; Lovenox. We will closely monitor the patient and adjust management as needed Plan of care reviewed with the patient's nurse The high probability OF a clinically significant sudden or life-threatening deterioration of the cardiorespiratory system and endocrine system required my full and direct attention, intervention and postoperative management. The aggregate critical care time was 32 minutes. The time is in addition to time spent performing reported procedures but includes the followin: Data review and interpretation 2: Patient assessment and monitoring of vital signs 3: Documentation 4:: Medication orders and management 03/28. Had temp 100.7F. He has been off antibiotics. Will send blood culture, ua, urine culture and chest xray. Had chest pain overnight and trop was elevated as well. Cardiology to evaluate 03/29. Has back pain due to position. He mentions his chest pain is positional. Has no other complaints. Still on mechanical ventilation 03/30. No chest pain today. Labs reviewed. Discussed chest pain with cardiology and team advised no further work up at this time. Can follow up with cardiology in the office after hospitalization 03/31. Lidocaine patch for lower back pain. 04/01. Discharge planning underway. MESERET notes reviewed. Discussed with daughter 04/02 - . CM trying to arrange discharge. Continue PSV trials. Discussed with patients significant other 04/04/2020; CM is working for discharge arrangement. Continue PSV trials. 04/05/2020; patient was seen and evaluated this morning and no change from baseline. Continue with PSV trials. Follow with experimental physicist for discharge planning. 04/06/2020;patient was seen and evaluated this morning and no change from baseline. Continue with PSV trials. Follow with experimental physicist for discharge planning. 04/07/2020; patient was seen and evaluated this morning and no change from baseline. Continue with PSV trials. Follow with experimental physicist for discharge antwan barlow. 04/08/2020; patient is vent dependent. Discharge is per experimental physicist. 04/09/2020 patient is vent dependent, possible LTAC placement 04/10/2020; tracheostomy on vent, vent dependent pending LTAC placement 04/11/2020; clinically no change, tracheostomy on ventilatory support, wean as tolerated, awaiting placement 04/12/2020; remains on ventilatory support, unable to wean, patient wants to see a speech therapist for sound box However we cannot try that as long as he is on ventilatory support, once he is weaned off vent We will consult speech therapist, plan of care reviewed with the patient and his nurse History Interval history: I have seen and examined the patient at the bedside in ICU this morning Patient's chart and medications reviewed No new overnight events reported per nursing staff Hospitalist Physical - Constitutional Vitals: Temp Pulse Resp BP Pulse Ox 98.7 F 107 H 14 111/73 100 04/13/20 08:00 04/13/20 08:37 04/13/20 08:37 04/13/20 08:37 04/13/20 08:48 General appearance: Present: no acute distress, cachectic, disheveled, other (Cachectic, tracheostomy on vent) - EENT Eyes: Present: PERRL, EOM intact - Neck Neck: Present: supple, normal ROM - Respiratory Respiratory effort: normal Respiratory: bilateral: diminished, rhonchi, negative: rales, wheezing - Cardiovascular Rhythm: regular Heart Sounds: Present: S1 & S2 - Extremities Extremities: no ischemia, No edema - Abdominal General gastrointestinal: soft, non-tender, non-distended, normal bowel sounds - Integumentary Integumentary: Present: clear, warm - Psychiatric Psychiatric: other (On vent) - Neurologic Neurologic: other (Tracheostomy on vent) HEART Score - HEART Score Troponin: Troponin T 0.090 ng/mL (0.00-0.029) H 03/28/20 17:17 Results - Labs CBC & Chem 7: 05/07/20 04:43 05/03/20 14:06 Labs: Laboratory Last Values WBC 13.1 K/mm3 (4.5-11.0) H 04/12/20 09:07 RBC 3.59 M/mm3 (3.65-5.03) L 04/12/20 09:07 Hgb 9.5 gm/dl (11.8-15.2) L 04/12/20 09:07 Hct 29.8 % (35.5-45.6) L 04/12/20 09:07 MCV 83 fl (84-94) L 04/12/20 09:07 MCH 26 pg (28-32) L 04/12/20 09:07 MCHC 32 % (32-34) 04/12/20 09:07 RDW 16.6 % (13.2-15.2) H 04/12/20 09:07 Plt Count 591 K/mm3 (140-440) H 04/12/20 09:07 Lymph % (Auto) 6.4 % (13.4-35.0) L 03/30/20 14:47 [place] % (Auto) 7.2 % (0.0-7.3) 03/30/20 14:47 Eos % (Auto) 0.1 % (0.0-4.3) 03/30/20 14:47 Baso % (Auto) 0.2 % (0.0-1.8) 03/30/20 14:47 Lymph # (Auto) 1.3 K/mm3 (1.2-5.4) 03/30/20 14:47 [place] # (Auto) 1.4 K/mm3 (0.0-0.8) H 03/30/20 14:47 Eos # (Auto) 0.0 K/mm3 (0.0-0.4) 03/30/20 14:47 Baso # (Auto) 0.0 K/mm3 (0.0-0.1) 03/30/20 14:47 Add Manual Diff Complete 04/12/20 09:07 Total Counted 100 04/12/20 09:07 Seg Neutrophils % 86.1 % (40.0-70.0) H 03/30/20 14:47 Seg Neuts % (Manual) 86.0 % (40.0-70.0) H 04/12/20 09:07 Band Neutrophils % 0 % 03/28/20 10:28 Lymphocytes % (Manual) 7.0 % (13.4-35.0) L 04/12/20 09:07 Reactive Lymphs % (Man) 0 % 03/28/20 10:28 Monocytes % (Manual) 3.0 % (0.0-7.3) 04/12/20 09:07 Eosinophils % (Manual) 1.0 % (0.0-4.3) 04/12/20 09:07 Basophils % (Manual) 1.0 % (0.0-1.8) 03/28/20 10:28 Metamyelocytes % 3.0 % 04/12/20 09:07 Myelocytes % 0 % 03/28/20 10:28 Promyelocytes % 0 % 03/28/20 10:28 Blast Cells % 0 % 03/28/20 10:28 Nucleated RBC % Not Reportable 04/12/20 09:07 Seg Neutrophils # 17.1 K/mm3 (1.8-7.7) H 03/30/20 14:47 Seg Neutrophils # Man 11.3 K/mm3 (1.8-7.7) H 04/12/20 09:07 Band Neutrophils # 0.0 K/mm3 04/12/20 09:07 Lymphocytes # (Manual) 0.9 K/mm3 (1.2-5.4) L 04/12/20 09:07 Abs React Lymphs (Man) 0.0 K/mm3 04/12/20 09:07 Monocytes # (Manual) 0.4 K/mm3 (0.0-0.8) 04/12/20 09:07 Eosinophils # (Manual) 0.1 K/mm3 (0.0-0.4) 04/12/20 09:07 Basophils # (Manual) 0.0 K/mm3 (0.0-0.1) 04/12/20 09:07 Metamyelocytes # 0.4 K/mm3 04/12/20 09:07 Myelocytes # 0.0 K/mm3 04/12/20 09:07 Promyelocytes # 0.0 K/mm3 04/12/20 09:07 Blast Cells # 0.0 K/mm3 04/12/20 09:07 WBC Morphology Not Reportable 04/12/20 09:07 Hypersegmented Neuts Not Reportable 04/12/20 09:07 Hyposegmented Neuts Not Reportable 04/12/20 09:07 Hypogranular Neuts Not Reportable 04/12/20 09:07 Smudge Cells Not Reportable 04/12/20 09:07 Toxic Granulation Not Reportable 04/12/20 09:07 Toxic Vacuolation Not Reportable 04/12/20 09:07 Dohle Bodies Not Reportable 04/12/20 09:07 Pelger-Huet Anomaly Not Reportable 04/12/20 09:07 Robert Rods Not Reportable 04/12/20 09:07 Platelet Estimate Consistent w auto 04/12/20 09:07 Clumped Platelets Not Reportable 04/12/20 09:07 Plt Clumps, EDTA Not Reportable 04/12/20 09:07 Large Platelets Few 04/12/20 09:07 Giant Platelets Not Reportable 04/12/20 09:07 Platelet Satelliting Not Reportable 04/12/20 09:07 Plt Morphology Comment Not Reportable 04/12/20 09:07 RBC Morphology Not Reportable 04/12/20 09:07 Dimorphic RBCs Not Reportable 04/12/20 09:07 Polychromasia Few 04/12/20 09:07 Hypochromasia Not Reportable 04/12/20 09:07 Poikilocytosis Not Reportable 04/12/20 09:07 Anisocytosis 1+ 04/12/20 09:07 Microcytosis Not Reportable 04/12/20 09:07 Macrocytosis Not Reportable 04/12/20 09:07 Spherocytes Not Reportable 04/12/20 09:07 Pappenheimer Bodies Not Reportable 04/12/20 09:07 Sickle Cells Not Reportable 04/12/20 09:07 Target Cells Not Reportable 04/12/20 09:07 Tear Drop Cells Not Reportable 04/12/20 09:07 Ovalocytes Not Reportable 04/12/20 09:07 Stomatocytes Few 03/17/20 04:40 Helmet Cells Not Reportable 04/12/20 09:07 Gregory-Pharr Bodies Not Reportable 04/12/20 09:07 [place] Rings Not Reportable 04/12/20 09:07 Riaz Cells Not Reportable 04/12/20 09:07 Bite Cells Not Reportable 04/12/20 09:07 Crenated Cell Not Reportable 04/12/20 09:07 Elliptocytes Not Reportable 04/12/20 09:07 Acanthocytes (Spur) Not Reportable 04/12/20 09:07 Rouleaux Not Reportable 04/12/20 09:07 Hemoglobin C Crystals Not Reportable 04/12/20 09:07 Schistocytes Not Reportable 04/12/20 09:07 Malaria parasites Not Reportable 04/12/20 09:07 Colton Bodies Not Reportable 04/12/20 09:07 Hem Pathologist Commnt No 04/12/20 09:07 PT 15.6 Sec. (12.2-14.9) H 02/24/20 09:19 INR 1.21 (0.87-1.13) H 02/24/20 09:19 APTT 25.4 Sec. (24.2-36.6) 02/24/20 09:19 D-Dimer 1311.96 ng/mlDDU (0-234) H 02/24/20 09:19 ABG pH 7.371 (7.320-7.450) 03/08/20 12:34 POC ABG pCO2 63.1 mmHg (32.0-48.0) H 03/08/20 12:34 ABG pCO2 60.1 mm Hg 03/06/20 04:34 POC ABG pO2 90.5 mmHg (83-108) 03/08/20 12:34 ABG pO2 88.6 mm Hg (80.0-90.0) 03/06/20 04:34 POC ABG HCO3 35.7 03/08/20 12:34 ABG HCO3 37.9 mmol/L (20.0-26.0) H 03/06/20 04:34 ABG O2 Saturation 97.0 % (95.0-99.0) 03/06/20 04:34 ABG O2 Content 14.3 (0.0-44) 03/06/20 04:34 POC ABG Base Excess 8.7 03/08/20 12:34 ABG Base Excess 11.4 mmol/L (-2.0-3.0) H 03/06/20 04:34 ABG Hemoglobin 10.9 (12.0-17.5) L 03/08/20 12:34 ABG Oxyhemoglobin 95.9 (94-98) 03/08/20 12:34 ABG Carboxyhemoglobin 1.7 % (0.0-5.0) 03/06/20 04:34 ABG Methemoglobin 0.3 (0.0-1.5) 03/08/20 12:34 ABG Sodium 143.6 mmol/L (136.0-145.0) 03/08/20 12:34 ABG Potassium 3.8 mmol/L (3.40-4.50) 03/08/20 12:34 ABG Chloride 102.0 mmol/L (98-107) 03/08/20 12:34 ABG Glucose 176 mg/dL (65-95) H 03/08/20 12:34 Oxyhemoglobin 94.7 % (95.0-99.0) L 03/06/20 04:34 Carboxyhemoglobin 0.7 (0.5-1.5) 03/08/20 12:34 FiO2 30 03/08/20 12:34 Sodium 139 mmol/L (137-145) 04/12/20 09:07 Potassium 4.1 mmol/L (3.6-5.0) 04/12/20 09:07 Chloride 99.4 mmol/L (98-107) 04/12/20 09:07 Carbon Dioxide 36 mmol/L (22-30) H 04/12/20 09:07 Anion Gap 8 mmol/L 04/12/20 09:07 BUN 17 mg/dL (9-20) 04/12/20 09:07 Creatinine < 0.2 mg/dL (0.8-1.3) L 04/12/20 09:07 Estimated GFR > 60 ml/min 04/12/20 09:07 BUN/Creatinine Ratio 85 % 04/12/20 09:07 Glucose 132 mg/dL (75-100) H 04/12/20 09:07 POC Glucose 125 mg/dL (70-105) H 04/13/20 05:45 Lactic Acid 1.00 mmol/L (0.7-2.0) 02/24/20 12:07 Calcium 8.9 mg/dL (8.4-10.2) 04/12/20 09:07 Phosphorus 3.30 mg/dL (2.5-4.5) 03/29/20 14:35 Magnesium 1.90 mg/dL (1.7-2.3) 04/12/20 09:07 Ferritin 1715.0 ng/mL (30.0-300.0) H 02/24/20 10:01 Total Bilirubin 0.20 mg/dL (0.1-1.2) 04/12/20 09:07 AST 15 units/L (5-40) 04/12/20 09:07 ALT 15 units/L (7-56) 04/12/20 09:07 Alkaline Phosphatase 62 units/L (35-129) 04/12/20 09:07 Lactate Dehydrogenase 303 units/L (91-180) H 02/24/20 09:19 Total Creatine Kinase 47 units/L (55-170) L 03/28/20 17:17 CK-MB (CK-2) 2.2 ng/mL (0.0-4.0) 03/28/20 17:17 CK-MB (CK-2) Rel Index 4.6 (0-4) H 03/28/20 17:17 Troponin T 0.090 ng/mL (0.00-0.029) H 03/28/20 17:17 C-Reactive Protein 4.70 mg/dL (0.00-1.30) H 02/28/20 11:05 NT-Pro-B Natriuret Pep 48.30 pg/mL (0-900) 02/24/20 09:19 Total Protein 6.7 g/dL (6.3-8.2) 04/12/20 09:07 Albumin 2.7 g/dL (3.9-5) L 04/12/20 09:07 Albumin/Globulin Ratio 0.7 % 04/12/20 09:07 Prealbumin 0.090 g/L (0.200-0.400) L 02/28/20 12:54 Triglycerides 34 mg/dL (2-149) 03/22/20 18:00 Cholesterol 104 mg/dL (50-199) 03/22/20 18:00 LDL Cholesterol Direct 54 mg/dL (50-130) 03/22/20 18:00 HDL Cholesterol 40 mg/dL (40-59) 03/22/20 18:00 Cholesterol/HDL Ratio 2.60 % 03/22/20 18:00 Procalcitonin < 0.05 ng/mL (<0.15) 03/28/20 17:12 Arterial Blood Glucose 176 mg/dL (65-95) H 03/08/20 12:34 Arterial Blood Ionized Calcium 4.5 mg/dL (4.6-5.3) L 03/08/20 12:34 Urine Color Yellow (Yellow) 03/28/20 11:36 Urine Turbidity Hazy (Clear) 03/28/20 11:36 Urine pH 5.0 (5.0-7.0) 03/28/20 11:36 Ur Specific [place] 1.026 (1.003-1.030) 03/28/20 11:36 Urine Protein 100 mg/dl mg/dL (Negative) 03/28/20 11:36 Urine Glucose (UA) Neg mg/dL (Negative) 03/28/20 11:36 Urine Ketones Neg mg/dL (Negative) 03/28/20 11:36 Urine Blood Neg (Negative) 03/28/20 11:36 Urine Nitrite Neg (Negative) 03/28/20 11:36 Urine Bilirubin Neg (Negative) 03/28/20 11:36 Urine Urobilinogen 4.0 mg/dL (<2.0) 03/28/20 11:36 Ur Leukocyte Esterase Mod (Negative) 03/28/20 11:36 Urine WBC (Auto) 39.0 /HPF (0.0-6.0) H 03/28/20 11:36 Urine RBC (Auto) 16.0 /HPF (0.0-6.0) 03/28/20 11:36 U Epithel Cells (Auto) < 1.0 /HPF (0-13.0) 03/08/20 08:57 Urine Bacteria (Auto) 2+ /HPF (Negative) 03/28/20 11:36 Urine Mucus 3+ /HPF 03/28/20 11:36 Urine Yeast (Budding) 2+ /HPF 03/28/20 11:36 Vancomycin Trough 8.0 ug/mL (5.0-20.0) 03/04/20 08:59 Coronavirus (PCR) Negative (Negative) 02/25/20 09:03 - Diagnostic Impressions Diagnostic Impressions: Echocardiogram 02/26/20 10:41 Transthoracic Echocardiogram Indication: Elevated Trop BP: 116/75 HR: 85 Conclusions *Global left ventricular wall motion and contractility are within normal limits. *The estimated ejection fraction is 50-55%. *Abnormal left ventricular diastolic filling is observed, consistent with impaired relaxation. *There is no pericardial effusion. Findings Left Ventricle: The left ventricular chamber size is normal. Global left ventricular wall motion and contractility are within normal limits. Global left ventricular systolic function is normal. The estimated ejection fraction is 50-55%. Abnormal left ventricular diastolic filling is observed, consistent with impaired relaxation. Left Atrium: The left atrial chamber size is normal. Right Ventricle: The right ventricular cavity size is normal. Right Atrium: The right atrial cavity size is normal. Aortic Valve: Mild aortic leaflet calcification is visualized. There is no evidence of aortic regurgitation. Mitral Valve: The mitral valve leaflets are mildly thickened. There is no evidence of mitral regurgitation. Tricuspid Valve: The tricuspid valve leaflets are normal. There is trace tricuspid regurgitation. The right ventricular systolic pressure is calculated at 29 mmHg. Pulmonic Valve: The pulmonic valve is not well visualized. Pericardium: There is no pericardial effusion. Aorta: The aorta appears normal. Venous: The inferior vena cava is dilated. There is less than 50% respiratory change in the inferior vena cava dimension. Measurements Chambers 2D Name Value Normal Range IVSd (2D) 0.97 cm (0.6 - 1.1) LVPWd (2D) 0.93 cm (0.6 - 1.1) LVIDd (2D) 4 cm (3.7 - 5.6) LVIDs (2D) 2.73 cm (2 - 3.8) LV FS (2D) 31.67 % - EF Teichholz (2D) 60.23 % - Ao root diameter (2D) 3.51 cm (2 - 3.7) Volumes/Mass Name Value Normal Range LA ESV SP 4CH (A/L) 8.43 ml - LA ESV SP 2CH (A/L) 18.89 ml - LA ESV BP (A/L) 13.02 ml - LA ESV BP (A/L) index 8.8 ml/m2 - LA ESV SP 4CH (MOD) 7.22 ml - LA ESV SP 2CH (MOD) 18.15 ml - LA ESV BP (MOD) 11.47 ml - LA ESV BP (MOD) index 7.75 ml/m2 - Diastolic/Systolic Function Name Value Normal Range MV E-wave Vmax 0.51 m/sec - MV deceleration time 180.22 msec - MV A-wave Vmax 0.62 m/sec - MV E:A ratio 0.82 ratio - Aortic Valve Name Value Normal Range AV Vmax 1.17 m/sec - AV VTI 19.71 cm - AV peak gradient 5.44 mmHg - AV mean gradient 3.38 mmHg - LVOT diameter 2.26 cm - LVOT Vmax 0.89 m/sec - LVOT VTI 13.72 cm - LVOT peak gradient 3.17 mmHg - LVOT mean gradient 1.67 mmHg - SV LVOT 55.03 ml - SHARAD (continuity Vmax) 3.06 cm2 - SHARAD (continuity VTI) 2.79 cm2 - Tricuspid Valve Name Value Normal Range TR Vmax 2.3 m/sec - TR peak gradient 21 mmHg - RAP 8 mmHg - RVSP 29 mmHg - IVC diameter 2.59 cm (1.2 - 2.3) Pulmonic Valve/Qp:Qs Name Value Normal Range PV acceleration time 68.51 msec - [place]ardon/IV: Voiding Method Indwelling Catheter IV Catheter Type [Right Wrist] INT / Saline Lock IV Catheter Type [Left Hand] Peripheral IV IV Catheter Type [Right Hand] Peripheral IV IV Catheter Type [Left Wrist] Peripheral IV IV Catheter Type [Right Peripheral IV Forearm] IV Catheter Type [Right Triple Lumen Cath Internal Jugular] IV Catheter Type [Left Forearm INT / Saline Lock ] IV Catheter Type [Right Triple Lumen Cath Femoral] IV Catheter Type [Right INT / Saline Lock Antecubital] Active Medications - Current Medications Current Medications: Generic Name Dose Route Start Last Admin Trade Name Freq PRN Reason Stop Dose Admin Acetaminophen 650 mg 02/24/20 15:13 04/12/20 21:06 Tylenol PO 650 mg Q4H PRN Administration Pain, Mild (1-3) Albuterol 2.5 mg 02/24/20 15:13 Proventil IH Q4HRT PRN Shortness Of Breath Alprazolam 0.5 mg 03/30/20 14:19 04/12/20 22:33 Xanax PO 0.5 mg Q8H PRN Administration Anxiety Lipase/Protease/Amylase 1 each 02/26/20 11:16 Pancreedy Rubio 10,500 Unit FEEDTUBE PRN PRN For Clogged Feeding Tube Baclofen 10 mg 04/03/20 12:00 04/12/20 21:06 Lioresal PO 10 mg BID ALISA Administration Bisacodyl 10 mg 03/12/20 18:00 04/12/20 09:26 Bisacodyl 10 Mg Rect Supp DE 10 mg QDAY PRN Administration Bowel Movement Docusate Sodium 100 mg 04/03/20 12:00 04/12/20 21:04 Colace FEEDTUBE 100 mg BID ALISA Administration Enoxaparin Sodium 40 mg 03/20/20 22:00 04/12/20 21:05 Enoxaparin SUB-Q 40 mg QDAY@2200 ALISA Administration Protocol Glycopyrrolate 2 mg 04/12/20 20:00 04/12/20 21:05 Glycopyrrolate 2 Mg Tab PO 2 mg TID ALISA Administration Lansoprazole 30 mg 02/28/20 10:00 04/12/20 09:26 Prevacid Solutab FEEDTUBE 30 mg QDAY ALISA Administration Lidocaine 1 each 03/31/20 10:00 04/12/20 13:12 Lidoderm 5% TD 1 each QDAY ALISA Administration Magnesium Hydroxide 30 ml 04/12/20 19:20 04/12/20 21:04 Magnesium Hydroxide (Mom) Oral Liqd Udc PO 30 ml Q4H PRN Administration Constipation Metoprolol Tartrate 12.5 mg 02/24/20 22:00 04/12/20 21:09 Metoprolol PO Not Given BID [facility] Morphine Sulfate 2 mg 02/29/20 16:42 04/13/20 04:56 Morphine IV 2 mg Q4H PRN Administration Pain, Moderate (4-6) Pregabalin 150 mg 04/03/20 12:00 04/12/20 21:05 Pregabalin PO 150 mg BID ALISA Administration Scopolamine 1 each 03/03/20 14:00 04/11/20 09:19 Transderm-Scop TD 1 each Q3D ALISA Administration Senna 17.2 mg 04/03/20 22:00 04/12/20 21:06 Senokot PO 17.2 mg QHS ALISA Administration Simple Syrup 15 ml 02/26/20 11:16 Simple Syrup FEEDTUBE PRN PRN Hypoglycemia Simple Syrup 30 ml 02/26/20 11:16 Simple Syrup FEEDTUBE PRN PRN Hypoglycemia Sodium Bicarbonate 325 mg 02/26/20 11:16 Sodium Bicarbonate FEEDTUBE PRN PRN For Clogged Feeding Tube Sodium Hypochlorite 1 applic 03/31/20 13:00 04/12/20 21:30 Dakin's Half Strength TP 1 applicatio BID ALISA Administration Tamsulosin HCl 0.4 mg 03/09/20 18:00 04/12/20 09:11 Tamsulosin 0.4 Mg Cap PO 0.4 mg QDAY ALISA Administration Zolpidem Tartrate 10 mg 03/31/20 20:15 04/12/20 21:05 Ambien PO 10 mg QHS PRN Administration Sleep Nutrition/Malnutrition Assess - Dietary Evaluation Nutrition/Malnutrition Findings: Nutrition Notes Start: 02/26/20 10:40 Freq: Status: Active Protocol: Document 04/11/20 15:00 AB (Rec: 04/11/20 15:04 AB [id number]) Co-Sign 04/11/20 15:00 LM Nutrition Notes Initial or Follow up Reassessment Current Diagnosis Decubitus(Pressure Ulcer), Sepsis,Respiratory Failure Other Pertinent Diagnosis COVID-19 (-), ALS, pneumonia, Hip/buttock PU Current Diet Vital AF 1.2 at 75ml/hr (goal rate) Labs/Tests Reviewed Pertinent Medications Reviewed Height 6 ft Weight 63 kg [place] Body Weight (kg) 80.90 BMI 18.8 Weight Status Appropriate Subjective/Other Information F/U for TF tolerance. Per RN, pt is tolerating TF at goal rate. Per chart, pt had BM . Percent of energy/protein needs met: 100%/100% Burn Absent Trauma Absent GI Symptoms None Skin Integrity/Comment Pressure Ulcer Stage 2 Current % PO Negligible Minimum of two criteria Yes Body Fat Depletion Mild depletion (non-severe) Muscle Mass Mild Depletion (non-severe) Reduced Perch Mender Strength Measurably Reduced (severe) #3 Nutrition Diagnosis Malnutrition Diagnosis Progress(for reassessment Continues documentation) #2 Nutrition Diagnosis Inadequate oral intake Diagnosis Progress(for reassessment Continues documentation) #1 Nutrition Diagnosis Increased nutrient needs ( specify in comment below) Diagnosis Progress(for reassessment Continues documentation) Is patient on ventilator? Yes Is Patient Ambulatory and/or Out of Bed No REE-([place] Jeor-confined to bed) 1784.508 Kcal/Kg value to use for calculation 37 Approximate Energy Requirements Using 2331 kcal/Kg Calculation Used for Recommendations Kcal/kg Additional Notes Protein needs: 88-147 g (1.2-2 g/ kg ABW) Fluid: 1ml/kcal Nutrition Intervention Change Diet Order: Continue TF Nutrition Support: Vital AF 1.2 at 75ml/hr. Flush 200ml q4h For hyponatremia, flush 150 mL q4h Kcal 2,160 Protein (gm) 135 Fluid (mL) 1,460 Add Supplement/Snack (indicate name/kcal Will BID /protein ) Provides kCal: 190 Provides Protein (gm) 5 Goal #1 Meet at least 80% of energy and protein needs via TF Goal #2 Wound healing Anticipated Discharge Needs: Unable to determine at this time Follow-Up By: 04/18/20 Additional Comments F/U for TF tolerance
[2020-04-13] MEDS: DOCUSATE SODIUM 100 MG/10 ML ORAL LIQD FEEDTUBE SCH ×2 (09:22→22:14)
[2020-04-13] MEDS: LIDOCAINE 5% 1 EACH PATCH TD SCH (09:22)
[2020-04-13] MEDS: GLYCOPYRROLATE 2 MG TAB PO SCH ×3 (09:22→22:13)
[2020-04-13] MEDS: ACETAMINOPHEN 325 MG TAB PO PRN (09:23)
[2020-04-13] MEDS: SODIUM HYPOCHLORITE, DAKIN'S 1/2 STRENGTH (0.25%) 473 ML TOPICAL SOLN TP SCH ×2 (09:23→22:14)
[2020-04-13] MEDS: BACLOFEN 10 MG TAB PO SCH ×2 (09:24→22:17)
[2020-04-13] MEDS: TAMSULOSIN 0.4 MG CAP PO SCH (09:24)
[2020-04-13] MEDS: LANSOPRAZOLE 30 MG SOLUTAB FEEDTUBE SCH (09:24)
[2020-04-13] MEDS: PREGABALIN 75 MG CAP PO SCH ×2 (09:24→22:19)
[2020-04-13] MEDS: ALPRAZolam 0.5 MG TAB PO PRN ×2 (09:24→23:44)
[2020-04-13] MEDS: METOPROLOL TARTRATE 25 MG TAB PO SCH ×2 (09:25→22:18)
[2020-04-13] MEDS: MAGNESIUM HYDROXIDE (MOM) ORAL LIQD UDC PO PRN (14:42)
[2020-04-13] MEDS: ENOXAPARIN 40 MG/0.4 ML INJ SUB-Q SCH (22:14)
[2020-04-13] MEDS: SENNOSIDES 8.6 MG TAB PO SCH (22:18)
[2020-04-13] MEDS: ZOLPIDEM 5 MG TAB PO PRN (22:22)
--- NOTE | 2020-04-14 09:01 | Progress Note ---
Assessment and Plan Assessment and plan: --Constipation; Patient already received Dulcolax suppository and Colace If no relief, we will try milk of magnesia, enema as needed --Acute hypoxic hypercapnic respiratory failure; Tracheostomy on ventilatory support Wean as tolerated, continue supportive care Pulmonary following --History of ALS - Stable --Elevated D-dimers; CTA chest, lower extremity venous Doppler both are negative Lovenox DVT prophylaxis --Bilateral pneumonia; probably community-acquired Completed the treatment, continue supportive care --Sepsis secondary to pneumonia; completed the treatment resolved --Elevated troponin non-ST elevation OK type II Continue current management --Febrile illness; secondary to pneumonia Complete antibiotics , resolved --DVT prophylaxis; Lovenox. We will closely monitor the patient and adjust management as needed Plan of care reviewed with the patient's nurse The high probability OF a clinically significant sudden or life-threatening deterioration of the cardiorespiratory system and endocrine system required my full and direct attention, intervention and postoperative management. The aggregate critical care time was 32 minutes. The time is in addition to time spent performing reported procedures but includes the followin: Data review and interpretation 2: Patient assessment and monitoring of vital signs 3: Documentation 4:: Medication orders and management 03/28. Had temp 100.7F. He has been off antibiotics. Will send blood culture, ua, urine culture and chest xray. Had chest pain overnight and trop was elevated as well. Cardiology to evaluate 03/29. Has back pain due to position. He mentions his chest pain is positional. Has no other complaints. Still on mechanical ventilation 03/30. No chest pain today. Labs reviewed. Discussed chest pain with cardiology and team advised no further work up at this time. Can follow up with cardiology in the office after hospitalization 03/31. Lidocaine patch for lower back pain. 04/01. Discharge planning underway. MESERET notes reviewed. Discussed with daughter 04/02 - . CM trying to arrange discharge. Continue PSV trials. Discussed with patients significant other 04/04/2020; CM is working for discharge arrangement. Continue PSV trials. 04/05/2020; patient was seen and evaluated this morning and no change from baseline. Continue with PSV trials. Follow with clipper automatic for discharge planning. 04/06/2020;patient was seen and evaluated this morning and no change from baseline. Continue with PSV trials. Follow with clipper automatic for discharge planning. 04/07/2020; patient was seen and evaluated this morning and no change from baseline. Continue with PSV trials. Follow with clipper automatic for discharge antwan barlow. 04/08/2020; patient is vent dependent. Discharge is per clipper automatic. 04/09/2020 patient is vent dependent, possible LTAC placement 04/10/2020; tracheostomy on vent, vent dependent pending LTAC placement 04/11/2020; clinically no change, tracheostomy on ventilatory support, wean as tolerated, awaiting placement 04/12/2020; remains on ventilatory support, unable to wean, patient wants to see a speech therapist for sound box However we cannot try that as long as he is on ventilatory support, once he is weaned off vent We will consult speech therapist, plan of care reviewed with the patient and his nurse History Interval history: I have seen and examined the patient at the bedside Patient's chart and medications reviewed Chronic tracheostomy remains on ventilatory support Patient wants to go home Vital signs noted Hospitalist Physical - Constitutional Vitals: Temp Pulse Resp BP Pulse Ox 98.6 F 110 H 22 109/74 98 04/14/20 03:53 04/14/20 07:30 04/14/20 07:30 04/14/20 07:30 04/14/20 07:30 General appearance: Present: no acute distress, cachectic, disheveled, other (Cachectic, tracheostomy on vent) - EENT Eyes: Present: PERRL, EOM intact - Neck Neck: Present: supple, normal ROM - Respiratory Respiratory effort: normal Respiratory: bilateral: diminished, rhonchi, negative: rales, wheezing - Cardiovascular Rhythm: regular Heart Sounds: Present: S1 & S2 - Extremities Extremities: no ischemia, No edema - Abdominal General gastrointestinal: soft, non-tender, non-distended, normal bowel sounds - Integumentary Integumentary: Present: clear, warm - Psychiatric Psychiatric: appropriate mood/affect - Neurologic Neurologic: moves all extremities, other (Residual weakness) HEART Score - HEART Score Troponin: Troponin T 0.090 ng/mL (0.00-0.029) H 03/28/20 17:17 Results - Labs CBC & Chem 7: 04/12/20 09:07 04/12/20 09:07 Labs: Laboratory Last Values WBC 13.1 K/mm3 (4.5-11.0) H 04/12/20 09:07 RBC 3.59 M/mm3 (3.65-5.03) L 04/12/20 09:07 Hgb 9.5 gm/dl (11.8-15.2) L 04/12/20 09:07 Hct 29.8 % (35.5-45.6) L 04/12/20 09:07 MCV 83 fl (84-94) L 04/12/20 09:07 MCH 26 pg (28-32) L 04/12/20 09:07 MCHC 32 % (32-34) 04/12/20 09:07 RDW 16.6 % (13.2-15.2) H 04/12/20 09:07 Plt Count 591 K/mm3 (140-440) H 04/12/20 09:07 Lymph % (Auto) 6.4 % (13.4-35.0) L 03/30/20 14:47 [place] % (Auto) 7.2 % (0.0-7.3) 03/30/20 14:47 Eos % (Auto) 0.1 % (0.0-4.3) 03/30/20 14:47 Baso % (Auto) 0.2 % (0.0-1.8) 03/30/20 14:47 Lymph # (Auto) 1.3 K/mm3 (1.2-5.4) 03/30/20 14:47 [place] # (Auto) 1.4 K/mm3 (0.0-0.8) H 03/30/20 14:47 Eos # (Auto) 0.0 K/mm3 (0.0-0.4) 03/30/20 14:47 Baso # (Auto) 0.0 K/mm3 (0.0-0.1) 03/30/20 14:47 Add Manual Diff Complete 04/12/20 09:07 Total Counted 100 04/12/20 09:07 Seg Neutrophils % 86.1 % (40.0-70.0) H 03/30/20 14:47 Seg Neuts % (Manual) 86.0 % (40.0-70.0) H 04/12/20 09:07 Band Neutrophils % 0 % 03/28/20 10:28 Lymphocytes % (Manual) 7.0 % (13.4-35.0) L 04/12/20 09:07 Reactive Lymphs % (Man) 0 % 03/28/20 10:28 Monocytes % (Manual) 3.0 % (0.0-7.3) 04/12/20 09:07 Eosinophils % (Manual) 1.0 % (0.0-4.3) 04/12/20 09:07 Basophils % (Manual) 1.0 % (0.0-1.8) 03/28/20 10:28 Metamyelocytes % 3.0 % 04/12/20 09:07 Myelocytes % 0 % 03/28/20 10:28 Promyelocytes % 0 % 03/28/20 10:28 Blast Cells % 0 % 03/28/20 10:28 Nucleated RBC % Not Reportable 04/12/20 09:07 Seg Neutrophils # 17.1 K/mm3 (1.8-7.7) H 03/30/20 14:47 Seg Neutrophils # Man 11.3 K/mm3 (1.8-7.7) H 04/12/20 09:07 Band Neutrophils # 0.0 K/mm3 04/12/20 09:07 Lymphocytes # (Manual) 0.9 K/mm3 (1.2-5.4) L 04/12/20 09:07 Abs React Lymphs (Man) 0.0 K/mm3 04/12/20 09:07 Monocytes # (Manual) 0.4 K/mm3 (0.0-0.8) 04/12/20 09:07 Eosinophils # (Manual) 0.1 K/mm3 (0.0-0.4) 04/12/20 09:07 Basophils # (Manual) 0.0 K/mm3 (0.0-0.1) 04/12/20 09:07 Metamyelocytes # 0.4 K/mm3 04/12/20 09:07 Myelocytes # 0.0 K/mm3 04/12/20 09:07 Promyelocytes # 0.0 K/mm3 04/12/20 09:07 Blast Cells # 0.0 K/mm3 04/12/20 09:07 WBC Morphology Not Reportable 04/12/20 09:07 Hypersegmented Neuts Not Reportable 04/12/20 09:07 Hyposegmented Neuts Not Reportable 04/12/20 09:07 Hypogranular Neuts Not Reportable 04/12/20 09:07 Smudge Cells Not Reportable 04/12/20 09:07 Toxic Granulation Not Reportable 04/12/20 09:07 Toxic Vacuolation Not Reportable 04/12/20 09:07 Dohle Bodies Not Reportable 04/12/20 09:07 Pelger-Huet Anomaly Not Reportable 04/12/20 09:07 Robert Rods Not Reportable 04/12/20 09:07 Platelet Estimate Consistent w auto 04/12/20 09:07 Clumped Platelets Not Reportable 04/12/20 09:07 Plt Clumps, EDTA Not Reportable 04/12/20 09:07 Large Platelets Few 04/12/20 09:07 Giant Platelets Not Reportable 04/12/20 09:07 Platelet Satelliting Not Reportable 04/12/20 09:07 Plt Morphology Comment Not Reportable 04/12/20 09:07 RBC Morphology Not Reportable 04/12/20 09:07 Dimorphic RBCs Not Reportable 04/12/20 09:07 Polychromasia Few 04/12/20 09:07 Hypochromasia Not Reportable 04/12/20 09:07 Poikilocytosis Not Reportable 04/12/20 09:07 Anisocytosis 1+ 04/12/20 09:07 Microcytosis Not Reportable 04/12/20 09:07 Macrocytosis Not Reportable 04/12/20 09:07 Spherocytes Not Reportable 04/12/20 09:07 Pappenheimer Bodies Not Reportable 04/12/20 09:07 Sickle Cells Not Reportable 04/12/20 09:07 Target Cells Not Reportable 04/12/20 09:07 Tear Drop Cells Not Reportable 04/12/20 09:07 Ovalocytes Not Reportable 04/12/20 09:07 Stomatocytes Few 03/17/20 04:40 Helmet Cells Not Reportable 04/12/20 09:07 Gregory-Palo Bodies Not Reportable 04/12/20 09:07 [place] Rings Not Reportable 04/12/20 09:07 Riaz Cells Not Reportable 04/12/20 09:07 Bite Cells Not Reportable 04/12/20 09:07 Crenated Cell Not Reportable 04/12/20 09:07 Elliptocytes Not Reportable 04/12/20 09:07 Acanthocytes (Spur) Not Reportable 04/12/20 09:07 Rouleaux Not Reportable 04/12/20 09:07 Hemoglobin C Crystals Not Reportable 04/12/20 09:07 Schistocytes Not Reportable 04/12/20 09:07 Malaria parasites Not Reportable 04/12/20 09:07 Colton Bodies Not Reportable 04/12/20 09:07 Hem Pathologist Commnt No 04/12/20 09:07 PT 15.6 Sec. (12.2-14.9) H 02/24/20 09:19 INR 1.21 (0.87-1.13) H 02/24/20 09:19 APTT 25.4 Sec. (24.2-36.6) 02/24/20 09:19 D-Dimer 1311.96 ng/mlDDU (0-234) H 02/24/20 09:19 ABG pH 7.371 (7.320-7.450) 03/08/20 12:34 POC ABG pCO2 63.1 mmHg (32.0-48.0) H 03/08/20 12:34 ABG pCO2 60.1 mm Hg 03/06/20 04:34 POC ABG pO2 90.5 mmHg (83-108) 03/08/20 12:34 ABG pO2 88.6 mm Hg (80.0-90.0) 03/06/20 04:34 POC ABG HCO3 35.7 03/08/20 12:34 ABG HCO3 37.9 mmol/L (20.0-26.0) H 03/06/20 04:34 ABG O2 Saturation 97.0 % (95.0-99.0) 03/06/20 04:34 ABG O2 Content 14.3 (0.0-44) 03/06/20 04:34 POC ABG Base Excess 8.7 03/08/20 12:34 ABG Base Excess 11.4 mmol/L (-2.0-3.0) H 03/06/20 04:34 ABG Hemoglobin 10.9 (12.0-17.5) L 03/08/20 12:34 ABG Oxyhemoglobin 95.9 (94-98) 03/08/20 12:34 ABG Carboxyhemoglobin 1.7 % (0.0-5.0) 03/06/20 04:34 ABG Methemoglobin 0.3 (0.0-1.5) 03/08/20 12:34 ABG Sodium 143.6 mmol/L (136.0-145.0) 03/08/20 12:34 ABG Potassium 3.8 mmol/L (3.40-4.50) 03/08/20 12:34 ABG Chloride 102.0 mmol/L (98-107) 03/08/20 12:34 ABG Glucose 176 mg/dL (65-95) H 03/08/20 12:34 Oxyhemoglobin 94.7 % (95.0-99.0) L 03/06/20 04:34 Carboxyhemoglobin 0.7 (0.5-1.5) 03/08/20 12:34 FiO2 30 03/08/20 12:34 Sodium 139 mmol/L (137-145) 04/12/20 09:07 Potassium 4.1 mmol/L (3.6-5.0) 04/12/20 09:07 Chloride 99.4 mmol/L (98-107) 04/12/20 09:07 Carbon Dioxide 36 mmol/L (22-30) H 04/12/20 09:07 Anion Gap 8 mmol/L 04/12/20 09:07 BUN 17 mg/dL (9-20) 04/12/20 09:07 Creatinine < 0.2 mg/dL (0.8-1.3) L 04/12/20 09:07 Estimated GFR > 60 ml/min 04/12/20 09:07 BUN/Creatinine Ratio 85 % 04/12/20 09:07 Glucose 132 mg/dL (75-100) H 04/12/20 09:07 POC Glucose 115 mg/dL (70-105) H 04/14/20 05:58 Lactic Acid 1.00 mmol/L (0.7-2.0) 02/24/20 12:07 Calcium 8.9 mg/dL (8.4-10.2) 04/12/20 09:07 Phosphorus 3.30 mg/dL (2.5-4.5) 03/29/20 14:35 Magnesium 1.90 mg/dL (1.7-2.3) 04/12/20 09:07 Ferritin 1715.0 ng/mL (30.0-300.0) H 02/24/20 10:01 Total Bilirubin 0.20 mg/dL (0.1-1.2) 04/12/20 09:07 AST 15 units/L (5-40) 04/12/20 09:07 ALT 15 units/L (7-56) 04/12/20 09:07 Alkaline Phosphatase 62 units/L (35-129) 04/12/20 09:07 Lactate Dehydrogenase 303 units/L (91-180) H 02/24/20 09:19 Total Creatine Kinase 47 units/L (55-170) L 03/28/20 17:17 CK-MB (CK-2) 2.2 ng/mL (0.0-4.0) 03/28/20 17:17 CK-MB (CK-2) Rel Index 4.6 (0-4) H 03/28/20 17:17 Troponin T 0.090 ng/mL (0.00-0.029) H 03/28/20 17:17 C-Reactive Protein 4.70 mg/dL (0.00-1.30) H 02/28/20 11:05 NT-Pro-B Natriuret Pep 48.30 pg/mL (0-900) 02/24/20 09:19 Total Protein 6.7 g/dL (6.3-8.2) 04/12/20 09:07 Albumin 2.7 g/dL (3.9-5) L 04/12/20 09:07 Albumin/Globulin Ratio 0.7 % 04/12/20 09:07 Prealbumin 0.090 g/L (0.200-0.400) L 02/28/20 12:54 Triglycerides 34 mg/dL (2-149) 03/22/20 18:00 Cholesterol 104 mg/dL (50-199) 03/22/20 18:00 LDL Cholesterol Direct 54 mg/dL (50-130) 03/22/20 18:00 HDL Cholesterol 40 mg/dL (40-59) 03/22/20 18:00 Cholesterol/HDL Ratio 2.60 % 03/22/20 18:00 Procalcitonin < 0.05 ng/mL (<0.15) 03/28/20 17:12 Arterial Blood Glucose 176 mg/dL (65-95) H 03/08/20 12:34 Arterial Blood Ionized Calcium 4.5 mg/dL (4.6-5.3) L 03/08/20 12:34 Urine Color Yellow (Yellow) 03/28/20 11:36 Urine Turbidity Hazy (Clear) 03/28/20 11:36 Urine pH 5.0 (5.0-7.0) 03/28/20 11:36 Ur Specific [place] 1.026 (1.003-1.030) 03/28/20 11:36 Urine Protein 100 mg/dl mg/dL (Negative) 03/28/20 11:36 Urine Glucose (UA) Neg mg/dL (Negative) 03/28/20 11:36 Urine Ketones Neg mg/dL (Negative) 03/28/20 11:36 Urine Blood Neg (Negative) 03/28/20 11:36 Urine Nitrite Neg (Negative) 03/28/20 11:36 Urine Bilirubin Neg (Negative) 03/28/20 11:36 Urine Urobilinogen 4.0 mg/dL (<2.0) 03/28/20 11:36 Ur Leukocyte Esterase Mod (Negative) 03/28/20 11:36 Urine WBC (Auto) 39.0 /HPF (0.0-6.0) H 03/28/20 11:36 Urine RBC (Auto) 16.0 /HPF (0.0-6.0) 03/28/20 11:36 U Epithel Cells (Auto) < 1.0 /HPF (0-13.0) 03/08/20 08:57 Urine Bacteria (Auto) 2+ /HPF (Negative) 03/28/20 11:36 Urine Mucus 3+ /HPF 03/28/20 11:36 Urine Yeast (Budding) 2+ /HPF 03/28/20 11:36 Vancomycin Trough 8.0 ug/mL (5.0-20.0) 03/04/20 08:59 Coronavirus (PCR) Negative (Negative) 02/25/20 09:03 - Diagnostic Impressions Diagnostic Impressions: Echocardiogram 02/26/20 10:41 Transthoracic Echocardiogram Indication: Elevated Trop BP: 116/75 HR: 85 Conclusions *Global left ventricular wall motion and contractility are within normal limits. *The estimated ejection fraction is 50-55%. *Abnormal left ventricular diastolic filling is observed, consistent with impaired relaxation. *There is no pericardial effusion. Findings Left Ventricle: The left ventricular chamber size is normal. Global left ventricular wall motion and contractility are within normal limits. Global left ventricular systolic function is normal. The estimated ejection fraction is 50-55%. Abnormal left ventricular diastolic filling is observed, consistent with impaired relaxation. Left Atrium: The left atrial chamber size is normal. Right Ventricle: The right ventricular cavity size is normal. Right Atrium: The right atrial cavity size is normal. Aortic Valve: Mild aortic leaflet calcification is visualized. There is no evidence of aortic regurgitation. Mitral Valve: The mitral valve leaflets are mildly thickened. There is no evidence of mitral regurgitation. Tricuspid Valve: The tricuspid valve leaflets are normal. There is trace tricuspid regurgitation. The right ventricular systolic pressure is calculated at 29 mmHg. Pulmonic Valve: The pulmonic valve is not well visualized. Pericardium: There is no pericardial effusion. Aorta: The aorta appears normal. Venous: The inferior vena cava is dilated. There is less than 50% respiratory change in the inferior vena cava dimension. Measurements Chambers 2D Name Value Normal Range IVSd (2D) 0.97 cm (0.6 - 1.1) LVPWd (2D) 0.93 cm (0.6 - 1.1) LVIDd (2D) 4 cm (3.7 - 5.6) LVIDs (2D) 2.73 cm (2 - 3.8) LV FS (2D) 31.67 % - EF Teichholz (2D) 60.23 % - Ao root diameter (2D) 3.51 cm (2 - 3.7) Volumes/Mass Name Value Normal Range LA ESV SP 4CH (A/L) 8.43 ml - LA ESV SP 2CH (A/L) 18.89 ml - LA ESV BP (A/L) 13.02 ml - LA ESV BP (A/L) index 8.8 ml/m2 - LA ESV SP 4CH (MOD) 7.22 ml - LA ESV SP 2CH (MOD) 18.15 ml - LA ESV BP (MOD) 11.47 ml - LA ESV BP (MOD) index 7.75 ml/m2 - Diastolic/Systolic Function Name Value Normal Range MV E-wave Vmax 0.51 m/sec - MV deceleration time 180.22 msec - MV A-wave Vmax 0.62 m/sec - MV E:A ratio 0.82 ratio - Aortic Valve Name Value Normal Range AV Vmax 1.17 m/sec - AV VTI 19.71 cm - AV peak gradient 5.44 mmHg - AV mean gradient 3.38 mmHg - LVOT diameter 2.26 cm - LVOT Vmax 0.89 m/sec - LVOT VTI 13.72 cm - LVOT peak gradient 3.17 mmHg - LVOT mean gradient 1.67 mmHg - SV LVOT 55.03 ml - SHARAD (continuity Vmax) 3.06 cm2 - SHARAD (continuity VTI) 2.79 cm2 - Tricuspid Valve Name Value Normal Range TR Vmax 2.3 m/sec - TR peak gradient 21 mmHg - RAP 8 mmHg - RVSP 29 mmHg - IVC diameter 2.59 cm (1.2 - 2.3) Pulmonic Valve/Qp:Qs Name Value Normal Range PV acceleration time 68.51 msec - Reardon/IV: Voiding Method Indwelling Catheter IV Catheter Type [Right Wrist] INT / Saline Lock IV Catheter Type [Left Hand] Peripheral IV IV Catheter Type [Right Hand] Peripheral IV IV Catheter Type [Left Wrist] Peripheral IV IV Catheter Type [Right Peripheral IV Forearm] IV Catheter Type [Right Triple Lumen Cath Internal Jugular] IV Catheter Type [Left Forearm INT / Saline Lock ] IV Catheter Type [Right Triple Lumen Cath Femoral] IV Catheter Type [Right INT / Saline Lock Antecubital] Active Medications - Current Medications Current Medications: Generic Name Dose Route Start Last Admin Trade Name Freq PRN Reason Stop Dose Admin Acetaminophen 650 mg 02/24/20 15:13 04/13/20 09:23 Tylenol PO 650 mg Q4H PRN Administration Pain, Mild (1-3) Albuterol 2.5 mg 02/24/20 15:13 Proventil IH Q4HRT PRN Shortness Of Breath Alprazolam 0.5 mg 03/30/20 14:19 04/13/20 23:44 Xanax PO 0.5 mg Q8H PRN Administration Anxiety Lipase/Protease/Amylase 1 each 02/26/20 11:[address] 10,500 Unit FEEDTUBE PRN PRN For Clogged Feeding Tube Baclofen 10 mg 04/03/20 12:00 04/13/20 22:17 Lioresal PO 10 mg BID ALISA Administration Bisacodyl 10 mg 03/12/20 18:00 04/12/20 09:26 Bisacodyl 10 Mg Rect Supp [place] 10 mg QDAY PRN Administration Bowel Movement Docusate Sodium 100 mg 04/03/20 12:00 04/13/20 22:14 Colace FEEDTUBE 100 mg BID ALISA Administration Enoxaparin Sodium 40 mg 03/20/20 22:00 04/13/20 22:14 Enoxaparin SUB-Q 40 mg QDAY@2200 ALISA Administration Protocol Glycopyrrolate 2 mg 04/12/20 20:00 04/13/20 22:13 Glycopyrrolate 2 Mg Tab PO 2 mg TID ALISA Administration Lansoprazole 30 mg 02/28/20 10:00 04/13/20 09:24 Prevacid Solutab FEEDTUBE 30 mg QDAY ALISA Administration Lidocaine 1 each 03/31/20 10:00 04/13/20 09:22 Lidoderm 5% TD 1 each QDAY ALISA Administration Magnesium Hydroxide 30 ml 04/12/20 19:20 04/13/20 14:42 Magnesium Hydroxide (Mom) Oral Liqd Udc PO 30 ml Q4H PRN Administration Constipation Metoprolol Tartrate 12.5 mg 02/24/20 22:00 04/13/20 22:18 Metoprolol PO 12.5 mg BID ALISA Administration Morphine Sulfate 2 mg 02/29/20 16:42 04/13/20 22:26 Morphine IV 2 mg Q4H PRN Administration Pain, Moderate (4-6) Pregabalin 150 mg 04/03/20 12:00 04/13/20 22:19 Pregabalin PO 150 mg BID ALISA Administration Scopolamine 1 each 03/03/20 14:00 04/11/20 09:19 Transderm-Scop TD 1 each Q3D ALISA Administration Senna 17.2 mg 04/03/20 22:00 04/13/20 22:18 Senokot PO 17.2 mg QHS ALISA Administration Simple Syrup 15 ml 02/26/20 11:16 Simple Syrup FEEDTUBE PRN PRN Hypoglycemia Simple Syrup 30 ml 02/26/20 11:16 Simple Syrup FEEDTUBE PRN PRN Hypoglycemia Sodium Bicarbonate 325 mg 02/26/20 11:16 Sodium Bicarbonate FEEDTUBE PRN PRN For Clogged Feeding Tube Sodium Hypochlorite 1 applic 03/31/20 13:00 04/13/20 22:14 Dakin's Half Strength TP 1 applicatio BID ALISA Administration Tamsulosin HCl 0.4 mg 03/09/20 18:00 04/13/20 09:24 Tamsulosin 0.4 Mg Cap PO 0.4 mg QDAY ALISA Administration Zolpidem Tartrate 10 mg 03/31/20 20:15 04/13/20 22:22 Ambien PO 10 mg QHS PRN Administration Sleep Nutrition/Malnutrition Assess - Dietary Evaluation Nutrition/Malnutrition Findings: Nutrition Notes Start: 02/26/20 10:40 Freq: Status: Active Protocol: Document 04/11/20 15:00 AB (Rec: 04/11/20 15:04 AB [id number]) Co-Sign 04/11/20 15:00 LM Nutrition Notes Initial or Follow up Reassessment Current Diagnosis Decubitus(Pressure Ulcer), Sepsis,Respiratory Failure Other Pertinent Diagnosis COVID-19 (-), ALS, pneumonia, Hip/buttock PU Current Diet Vital AF 1.2 at 75ml/hr (goal rate) Labs/Tests Reviewed Pertinent Medications Reviewed Height 6 ft Weight 63 kg [place] Body Weight (kg) 80.90 BMI 18.8 Weight Status Appropriate Subjective/Other Information F/U for TF tolerance. Per RN, pt is tolerating TF at goal rate. Per chart, pt had BM . Percent of energy/protein needs met: 100%/100% Burn Absent Trauma Absent GI Symptoms None Skin Integrity/Comment Pressure Ulcer Stage 2 Current % PO Negligible Minimum of two criteria Yes Body Fat Depletion Mild depletion (non-severe) Muscle Mass Mild Depletion (non-severe) Reduced [place] Strength Measurably Reduced (severe) #3 Nutrition Diagnosis Malnutrition Diagnosis Progress(for reassessment Continues documentation) #2 Nutrition Diagnosis Inadequate oral intake Diagnosis Progress(for reassessment Continues documentation) #1 Nutrition Diagnosis Increased nutrient needs ( specify in comment below) Diagnosis Progress(for reassessment Continues documentation) Is patient on ventilator? Yes Is Patient Ambulatory and/or Out of Bed No REE-([facility]-confined to bed) 1784.508 Kcal/Kg value to use for calculation 37 Approximate Energy Requirements Using 2331 kcal/Kg Calculation Used for Recommendations Kcal/kg Additional Notes Protein needs: 88-147 g (1.2-2 g/ kg ABW) Fluid: 1ml/kcal Nutrition Intervention Change Diet Order: Continue TF Nutrition Support: Vital AF 1.2 at 75ml/hr. Flush 200ml q4h For hyponatremia, flush 150 mL q4h Kcal 2,160 Protein (gm) 135 Fluid (mL) 1,460 Add Supplement/Snack (indicate name/kcal Will BID /protein ) Provides kCal: 190 Provides Protein (gm) 5 Goal #1 Meet at least 80% of energy and protein needs via TF Goal #2 Wound healing Anticipated Discharge Needs: Unable to determine at this time Follow-Up By: 04/18/20 Additional Comments F/U for TF tolerance
[2020-04-14] MEDS: METOPROLOL TARTRATE 25 MG TAB PO SCH ×2 (11:06→22:22)
[2020-04-14] MEDS: BACLOFEN 10 MG TAB PO SCH ×2 (11:07→22:19)
[2020-04-14] MEDS: PREGABALIN 75 MG CAP PO SCH ×2 (11:07→22:21)
[2020-04-14] MEDS: GLYCOPYRROLATE 2 MG TAB PO SCH ×3 (11:07→19:51)
[2020-04-14] MEDS: SCOPOLAMINE TRANSDERMAL PATCH 72 HR TD SCH (11:07)
[2020-04-14] MEDS: DOCUSATE SODIUM 100 MG/10 ML ORAL LIQD FEEDTUBE SCH ×2 (11:07→22:18)
[2020-04-14] MEDS: TAMSULOSIN 0.4 MG CAP PO SCH (11:08)
[2020-04-14] MEDS: LIDOCAINE 5% 1 EACH PATCH TD SCH (11:08)
[2020-04-14] MEDS: LANSOPRAZOLE 30 MG SOLUTAB FEEDTUBE SCH (11:08)
[2020-04-14] MEDS: SODIUM HYPOCHLORITE, DAKIN'S 1/2 STRENGTH (0.25%) 473 ML TOPICAL SOLN TP SCH ×2 (11:08→22:18)
[2020-04-14] MEDS: ALPRAZolam 0.5 MG TAB PO PRN ×2 (11:39→22:23)
[2020-04-14] MEDS: MORPHINE 2 MG/1 ML INJ IV PRN ×2 (11:39→19:51)
--- NOTE | 2020-04-14 13:14 | Progress Note ---
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 Respiratory Failure s/p trach Severe Sepsis with Shock Bilateral Pneumonia (Possible aspiration) History of ALS on Trilogy Oropharyngeal Dysphagia s/p PEG Acute toxic metabolic encephalopathy-resolved Elevated D-dimer Elevated troponin possibly type 2 ischemia Leukocytsois Continue to trend WCC and temperature curve Continue Ambien for sleep at night ATP as tolerated Continue all supportive care Discharge planning is ongoing- discussed with case management, she is waiting for his significant other and his and the state program that provides attendant care in his home to make final decisions as to services that he can have to support him and his partner at home. - continue daytime PSV as tolerated -He is not tolerating ATP trials and is vent dependant. - ABG, CXR as clinically indicated - continue Robinul & scopolamine for secretion control - Keep K at 4, Mg at 2 and Phos at 2.5 to optimize respiratory muscle function - wound care per RN/WCN, off loading, frequent turning, mobility per facility protocol - wean supplemental oxygen for target O2 sats > 92% - VAP bundle addressed, aspiration precautions, HOB >40 - continue lung protective strategies - continue bronchodilators with pulmonary hygiene per RT - s/p empiric anti-infectives per ID recs (Rocephin and Zithromax) - enteral nutrition at goal rate as tolerated - accuchecks with glycemic control per SSI (While critically ill target blood glucose of 140-180 mg/dL; avoid hypoglycemia) - avoid nephrotoxins, renal dose all medications - avoid benzodiazepines, reduce the possibility of delirium - prn analgesia per CPOT score - Maintenance of sleep-wake cycle, avoid delirium -Continue stress ulcer and VTE prophylaxis (Famotidine and Enoxaparin) -Reardon in place for urinary retention and sacral decubitus ulcer - Monitor hemodynamics closely - continue other care per attending / other consultants CONDITION: FAIR PROGNOSIS: GUARDED CODE STATUS: FULL CODE Subjective Date of service: 04/14/20 Principal diagnosis: Ac on Ch Hypercapnic & hypoxemic Resp Failure; Severe Sepsis; Jamar PNA; ALS Interval history: Patient is seen today for: Acute on Chronic Hypercapnic & hypoxemic Respiratory Failure; Severe Sepsis with Shock; Bilateral Pneumonia (Possible aspiration); History of ALS on Trilogy; Acute toxic metabolic encephalopathy Seen and examined at bedside; 24hour events reviewed; nursing and respiratory care staff consulted; no adverse overnight events reported to me; resting in bed; remains on MVS; s/p trach and PEG Tolerating tube feedings. Tolerating PSV at the bedside, full support at night Was placed on ATP per his requested- he became bradycardic, with increased work of breathing and desaturations. Placed back on PSV No fevers,no vomiting. Slept well last night. Phonates around the trach- wants to go home Objective Vital Signs - 12hr 04/14/20 04/14/20 04/14/20 01:30 02:00 02:30 Temperature Pulse Rate 100 H 96 H 100 H Pulse Rate [ 105 H From Monitor] Respiratory 11 L 10 L 15 Rate Blood Pressure 107/72 118/81 118/81 O2 Sat by Pulse 97 100 97 Oximetry O2 Sat by Pulse Oximetry [ Assessment] 04/14/20 04/14/20 04/14/20 03:00 03:30 03:53 Temperature 98.6 F Pulse Rate 102 H 116 H Pulse Rate [ From Monitor] Respiratory 16 20 Rate Blood Pressure 102/68 102/68 O2 Sat by Pulse 100 95 Oximetry O2 Sat by Pulse Oximetry [ Assessment] 04/14/20 04/14/20 04/14/20 04:00 04:30 04:56 Temperature Pulse Rate 106 H 108 H 110 H Pulse Rate [ From Monitor] Respiratory 10 L 11 L Rate Blood Pressure 108/74 102/68 108/74 O2 Sat by Pulse 94 98 98 Oximetry O2 Sat by Pulse Oximetry [ Assessment] 04/14/20 04/14/20 04/14/20 04:57 05:00 05:30 Temperature Pulse Rate 115 H 106 H Pulse Rate [ From Monitor] Respiratory 23 14 Rate Blood Pressure 104/71 104/71 O2 Sat by Pulse 99 100 Oximetry O2 Sat by Pulse 100 Oximetry [ Assessment] 04/14/20 04/14/20 04/14/20 06:00 06:30 07:00 Temperature Pulse Rate 116 H 114 H 102 H Pulse Rate [ From Monitor] Respiratory 22 17 11 L Rate Blood Pressure 106/73 106/73 109/74 O2 Sat by Pulse 99 98 97 Oximetry O2 Sat by Pulse Oximetry [ Assessment] 04/14/20 04/14/20 04/14/20 07:30 08:00 08:30 Temperature Pulse Rate 110 H 113 H 112 H Pulse Rate [ From Monitor] Respiratory 22 14 23 Rate Blood Pressure 109/74 104/74 104/74 O2 Sat by Pulse 98 99 100 Oximetry O2 Sat by Pulse Oximetry [ Assessment] 04/14/20 04/14/20 04/14/20 08:50 09:00 09:06 Temperature Pulse Rate 113 H 117 H 116 H Pulse Rate [ From Monitor] Respiratory 18 27 H Rate Blood Pressure 104/74 112/79 112/79 O2 Sat by Pulse 100 97 100 Oximetry O2 Sat by Pulse Oximetry [ Assessment] 04/14/20 04/14/20 04/14/20 09:30 10:00 10:30 Temperature Pulse Rate 116 H 119 H 113 H Pulse Rate [ From Monitor] Respiratory 28 H 30 H 25 H Rate Blood Pressure 112/79 126/84 126/84 O2 Sat by Pulse 98 95 95 Oximetry O2 Sat by Pulse Oximetry [ Assessment] 04/14/20 04/14/20 04/14/20 11:00 11:06 11:30 Temperature Pulse Rate 114 H 114 H 109 H Pulse Rate [ From Monitor] Respiratory 27 H 31 H Rate Blood Pressure 119/82 119/82 119/82 O2 Sat by Pulse 95 97 Oximetry O2 Sat by Pulse Oximetry [ Assessment] 04/14/20 04/14/20 04/14/20 12:00 12:27 12:30 Temperature Pulse Rate 102 H 99 H 103 H Pulse Rate [ From Monitor] Respiratory 11 L 21 16 Rate Blood Pressure 100/68 100/68 100/68 O2 Sat by Pulse 98 99 100 Oximetry O2 Sat by Pulse Oximetry [ Assessment] 04/14/20 13:00 Temperature Pulse Rate 102 H Pulse Rate [ From Monitor] Respiratory 16 Rate Blood Pressure 105/72 O2 Sat by Pulse 99 Oximetry O2 Sat by Pulse Oximetry [ Assessment] Constitutional: no acute distress, alert, other (thin middle aged male with normal respiratory effort at rest on MVS) Eyes: non-icteric ENT: oropharynx moist, other (S/P Tracheostomy) Neck: supple, no lymphadenopathy, no JVD Effort: mildly labored Ascultation: Bilateral: clear, diminished breath sounds, wheezes, rhonchi Percussion: Bilateral: not dull Cardiovascular: regular rate and rhythm, other (S1,S2, no murmurs) Gastrointestinal: normoactive bowel sounds, soft, non-tender, non-distended, other (+ distended but non tender suprapubis) Integumentary: normal, decubitus ulcer (sacral / gluteal) Extremities: no cyanosis, no edema, pulses normal, other (atrophic looking limbs) Neurologic: pupils equal and round, other (motor strength in extremities 1-2/5, awake, alert, mouths words to make needs known) Psychiatric: depressed CBC and BMP: 04/12/20 09:07 04/12/20 09:07 ABG, PT/INR, D-dimer: ABG ABG pH 7.371 (7.320-7.450) 03/08/20 12:34 POC ABG pCO2 63.1 mmHg (32.0-48.0) H 03/08/20 12:34 ABG pCO2 60.1 mm Hg 03/06/20 04:34 POC ABG pO2 90.5 mmHg (83-108) 03/08/20 12:34 ABG pO2 88.6 mm Hg (80.0-90.0) 03/06/20 04:34 POC ABG HCO3 35.7 03/08/20 12:34 ABG O2 Saturation 97.0 % (95.0-99.0) 03/06/20 04:34 PT/INR, D-dimer PT 15.6 Sec. (12.2-14.9) H 02/24/20 09:19 INR 1.21 (0.87-1.13) H 02/24/20 09:19 D-Dimer 1311.96 ng/mlDDU (0-234) H 02/24/20 09:19 Abnormal lab findings: Abnormal Labs 02/24/20 02/24/20 02/24/20 09:19 09:19 09:19 WBC 20.2 H RBC 5.05 H Hgb Hct MCV MCH RDW 15.3 H Plt Count Lymph % (Auto) Lymph # (Auto) Emery # (Auto) Seg Neutrophils % Seg Neuts % (Manual) 86.0 H Lymphocytes % (Manual) 1.0 L Monocytes % (Manual) Basophils % (Manual) Seg Neutrophils # Seg Neutrophils # Man 17.4 H Lymphocytes # (Manual) 0.2 L Monocytes # (Manual) Eosinophils # (Manual) Basophils # (Manual) PT 15.6 H INR 1.21 H D-Dimer 1311.96 H ABG pH POC ABG pCO2 POC ABG pO2 ABG pO2 ABG HCO3 ABG O2 Saturation ABG Base Excess ABG Hemoglobin ABG Oxyhemoglobin ABG Potassium ABG Glucose Oxyhemoglobin Carboxyhemoglobin Sodium 135 L Potassium 3.2 L Chloride 92.2 L Carbon Dioxide BUN 6 L Creatinine < 0.2 L Glucose 124 H POC Glucose Calcium Ferritin Total Bilirubin 2.30 H Alkaline Phosphatase 132 H Lactate Dehydrogenase Total Creatine Kinase CK-MB (CK-2) Rel Index Troponin T 0.080 H C-Reactive Protein Total Protein Albumin 3.6 L Prealbumin LDL Cholesterol Direct 41 L Arterial Blood Glucose Arterial Blood Ionized Calcium Urine WBC (Auto) 02/24/20 02/24/20 02/24/20 09:19 09:58 10:01 WBC RBC Hgb Hct MCV MCH RDW Plt Count Lymph % (Auto) Lymph # (Auto) Emery # (Auto) Seg Neutrophils % Seg Neuts % (Manual) Lymphocytes % (Manual) Monocytes % (Manual) Basophils % (Manual) Seg Neutrophils # Seg Neutrophils # Man Lymphocytes # (Manual) Monocytes # (Manual) Eosinophils # (Manual) Basophils # (Manual) PT INR D-Dimer ABG pH 7.176 L* POC ABG pCO2 POC ABG pO2 ABG pO2 91.2 H ABG HCO3 ABG O2 Saturation ABG Base Excess -4.6 L ABG Hemoglobin ABG Oxyhemoglobin ABG Potassium ABG Glucose Oxyhemoglobin 92.6 L Carboxyhemoglobin Sodium Potassium Chloride Carbon Dioxide BUN Creatinine Glucose POC Glucose Calcium Ferritin 1715.0 H Total Bilirubin Alkaline Phosphatase Lactate Dehydrogenase 303 H Total Creatine Kinase CK-MB (CK-2) Rel Index Troponin T C-Reactive Protein 26.10 H Total Protein Albumin Prealbumin LDL Cholesterol Direct Arterial Blood Glucose Arterial Blood Ionized Calcium Urine WBC (Auto) 02/24/20 02/24/20 02/24/20 11:52 13:45 19:35 WBC RBC Hgb Hct MCV MCH RDW Plt Count Lymph % (Auto) Lymph # (Auto) Emery # (Auto) Seg Neutrophils % Seg Neuts % (Manual) Lymphocytes % (Manual) Monocytes % (Manual) Basophils % (Manual) Seg Neutrophils # Seg Neutrophils # Man Lymphocytes # (Manual) Monocytes # (Manual) Eosinophils # (Manual) Basophils # (Manual) PT INR D-Dimer ABG pH 7.051 L* 7.300 L POC ABG pCO2 POC ABG pO2 ABG pO2 94.7 H 75.1 L ABG HCO3 18.0 L ABG O2 Saturation 93.5 L ABG Base Excess -6.8 L -7.8 L ABG Hemoglobin 13.2 L 11.9 L ABG Oxyhemoglobin ABG Potassium ABG Glucose Oxyhemoglobin 91.0 L 92.7 L Carboxyhemoglobin Sodium Potassium Chloride Carbon Dioxide BUN Creatinine Glucose POC Glucose Calcium Ferritin Total Bilirubin Alkaline Phosphatase Lactate Dehydrogenase Total Creatine Kinase CK-MB (CK-2) Rel Index Troponin T 0.034 H D C-Reactive Protein Total Protein Albumin Prealbumin LDL Cholesterol Direct Arterial Blood Glucose Arterial Blood Ionized Calcium Urine WBC (Auto) 02/25/20 02/25/20 02/25/20 04:00 04:00 12:26 WBC 22.9 H RBC Hgb Hct MCV 83 L MCH 27 L RDW Plt Count 468 H Lymph % (Auto) Lymph # (Auto) Emery # (Auto) Seg Neutrophils % Seg Neuts % (Manual) 89.0 H Lymphocytes % (Manual) 7.0 L Monocytes % (Manual) Basophils % (Manual) Seg Neutrophils # Seg Neutrophils # Man 20.4 H Lymphocytes # (Manual) Monocytes # (Manual) Eosinophils # (Manual) Basophils # (Manual) PT INR D-Dimer ABG pH POC ABG pCO2 POC ABG pO2 ABG pO2 ABG HCO3 ABG O2 Saturation ABG Base Excess ABG Hemoglobin ABG Oxyhemoglobin ABG Potassium 2.6 L ABG Glucose 142 H Oxyhemoglobin Carboxyhemoglobin Sodium Potassium 3.2 L Chloride Carbon Dioxide 18 L BUN Creatinine 0.2 L Glucose 114 H POC Glucose Calcium Ferritin Total Bilirubin Alkaline Phosphatase Lactate Dehydrogenase Total Creatine Kinase CK-MB (CK-2) Rel Index Troponin T C-Reactive Protein Total Protein Albumin 3.5 L Prealbumin LDL Cholesterol Direct Arterial Blood Glucose 142 H Arterial Blood Ionized Calcium Urine WBC (Auto) 02/26/20 02/26/20 02/26/20 15:58 17:00 23:43 WBC RBC Hgb Hct MCV MCH RDW Plt Count Lymph % (Auto) Lymph # (Auto) Emery # (Auto) Seg Neutrophils % Seg Neuts % (Manual) Lymphocytes % (Manual) Monocytes % (Manual) Basophils % (Manual) Seg Neutrophils # Seg Neutrophils # Man Lymphocytes # (Manual) Monocytes # (Manual) Eosinophils # (Manual) Basophils # (Manual) PT INR D-Dimer ABG pH 7.502 H POC ABG pCO2 POC ABG pO2 213.6 H ABG pO2 ABG HCO3 ABG O2 Saturation ABG Base Excess ABG Hemoglobin ABG Oxyhemoglobin 99.2 H ABG Potassium 2.9 L ABG Glucose 160 H Oxyhemoglobin Carboxyhemoglobin 0.4 L Sodium Potassium Chloride Carbon Dioxide BUN Creatinine Glucose POC Glucose 189 H 120 H Calcium Ferritin Total Bilirubin Alkaline Phosphatase Lactate Dehydrogenase Total Creatine Kinase CK-MB (CK-2) Rel Index Troponin T C-Reactive Protein Total Protein Albumin Prealbumin LDL Cholesterol Direct Arterial Blood Glucose 160 H Arterial Blood Ionized Calcium 4.5 L Urine WBC (Auto) 02/27/20 02/27/20 02/27/20 05:00 07:04 17:45 WBC RBC Hgb Hct MCV MCH RDW Plt Count Lymph % (Auto) Lymph # (Auto) Emery # (Auto) Seg Neutrophils % Seg Neuts % (Manual) Lymphocytes % (Manual) Monocytes % (Manual) Basophils % (Manual) Seg Neutrophils # Seg Neutrophils # Man Lymphocytes # (Manual) Monocytes # (Manual) Eosinophils # (Manual) Basophils # (Manual) PT INR D-Dimer ABG pH 7.524 H POC ABG pCO2 POC ABG pO2 ABG pO2 ABG HCO3 ABG O2 Saturation ABG Base Excess ABG Hemoglobin ABG Oxyhemoglobin ABG Potassium 3.0 L ABG Glucose 143 H Oxyhemoglobin Carboxyhemoglobin Sodium Potassium Chloride Carbon Dioxide BUN Creatinine Glucose POC Glucose 154 H 175 H Calcium Ferritin Total Bilirubin Alkaline Phosphatase Lactate Dehydrogenase Total Creatine Kinase CK-MB (CK-2) Rel Index Troponin T C-Reactive Protein Total Protein Albumin Prealbumin LDL Cholesterol Direct Arterial Blood Glucose 143 H Arterial Blood Ionized Calcium Urine WBC (Auto) 02/27/20 02/28/20 02/28/20 Unknown 00:21 04:15 WBC 18.7 H RBC Hgb Hct MCV MCH RDW Plt Count Lymph % (Auto) 8.7 L Lymph # (Auto) Emery # (Auto) 1.2 H Seg Neutrophils % 84.6 H Seg Neuts % (Manual) Lymphocytes % (Manual) Monocytes % (Manual) Basophils % (Manual) Seg Neutrophils # 15.9 H Seg Neutrophils # Man Lymphocytes # (Manual) Monocytes # (Manual) Eosinophils # (Manual) Basophils # (Manual) PT INR D-Dimer ABG pH POC ABG pCO2 POC ABG pO2 ABG pO2 ABG HCO3 ABG O2 Saturation ABG Base Excess ABG Hemoglobin ABG Oxyhemoglobin ABG Potassium ABG Glucose Oxyhemoglobin Carboxyhemoglobin Sodium Potassium 2.9 L* Chloride Carbon Dioxide 33 H D BUN Creatinine < 0.2 L Glucose 157 H POC Glucose 134 H Calcium Ferritin Total Bilirubin Alkaline Phosphatase Lactate Dehydrogenase Total Creatine Kinase CK-MB (CK-2) Rel Index Troponin T C-Reactive Protein Total Protein Albumin Prealbumin LDL Cholesterol Direct Arterial Blood Glucose Arterial Blood Ionized Calcium Urine WBC (Auto) 02/28/20 02/28/20 02/28/20 04:15 05:16 05:39 WBC RBC Hgb Hct MCV MCH RDW Plt Count Lymph % (Auto) Lymph # (Auto) Emery # (Auto) Seg Neutrophils % Seg Neuts % (Manual) Lymphocytes % (Manual) Monocytes % (Manual) Basophils % (Manual) Seg Neutrophils # Seg Neutrophils # Man Lymphocytes # (Manual) Monocytes # (Manual) Eosinophils # (Manual) Basophils # (Manual) PT INR D-Dimer ABG pH POC ABG pCO2 POC ABG pO2 ABG pO2 142.9 H ABG HCO3 34.1 H ABG O2 Saturation ABG Base Excess 8.3 H ABG Hemoglobin ABG Oxyhemoglobin ABG Potassium ABG Glucose Oxyhemoglobin Carboxyhemoglobin Sodium 151 H Potassium Chloride Carbon Dioxide 32 H BUN Creatinine 0.2 L Glucose 167 H POC Glucose 138 H Calcium Ferritin Total Bilirubin Alkaline Phosphatase Lactate Dehydrogenase Total Creatine Kinase CK-MB (CK-2) Rel Index Troponin T C-Reactive Protein Total Protein Albumin Prealbumin LDL Cholesterol Direct Arterial Blood Glucose Arterial Blood Ionized Calcium Urine WBC (Auto) 02/28/20 02/28/20 02/28/20 11:05 11:33 12:54 WBC RBC Hgb Hct MCV MCH RDW Plt Count Lymph % (Auto) Lymph # (Auto) Emery # (Auto) Seg Neutrophils % Seg Neuts % (Manual) Lymphocytes % (Manual) Monocytes % (Manual) Basophils % (Manual) Seg Neutrophils # Seg Neutrophils # Man Lymphocytes # (Manual) Monocytes # (Manual) Eosinophils # (Manual) Basophils # (Manual) PT INR D-Dimer ABG pH POC ABG pCO2 POC ABG pO2 ABG pO2 ABG HCO3 ABG O2 Saturation ABG Base Excess ABG Hemoglobin ABG Oxyhemoglobin ABG Potassium ABG Glucose Oxyhemoglobin Carboxyhemoglobin Sodium Potassium Chloride Carbon Dioxide BUN Creatinine Glucose POC Glucose 160 H Calcium Ferritin Total Bilirubin Alkaline Phosphatase Lactate Dehydrogenase Total Creatine Kinase CK-MB (CK-2) Rel Index Troponin T C-Reactive Protein 4.70 H Total Protein Albumin Prealbumin 0.090 L LDL Cholesterol Direct Arterial Blood Glucose Arterial Blood Ionized Calcium Urine WBC (Auto) 02/28/20 02/29/20 02/29/20 17:34 00:44 04:05 WBC 19.6 H RBC Hgb Hct MCV MCH 27 L RDW 15.4 H Plt Count Lymph % (Auto) Lymph # (Auto) Emery # (Auto) Seg Neutrophils % Seg Neuts % (Manual) 86.0 H Lymphocytes % (Manual) 7.0 L Monocytes % (Manual) Basophils % (Manual) Seg Neutrophils # Seg Neutrophils # Man 16.9 H Lymphocytes # (Manual) Monocytes # (Manual) 1.2 H Eosinophils # (Manual) Basophils # (Manual) PT INR D-Dimer ABG pH POC ABG pCO2 POC ABG pO2 ABG pO2 ABG HCO3 ABG O2 Saturation ABG Base Excess ABG Hemoglobin ABG Oxyhemoglobin ABG Potassium ABG Glucose Oxyhemoglobin Carboxyhemoglobin Sodium Potassium Chloride Carbon Dioxide BUN Creatinine Glucose POC Glucose 136 H 156 H Calcium Ferritin Total Bilirubin Alkaline Phosphatase Lactate Dehydrogenase Total Creatine Kinase CK-MB (CK-2) Rel Index Troponin T C-Reactive Protein Total Protein Albumin Prealbumin LDL Cholesterol Direct Arterial Blood Glucose Arterial Blood Ionized Calcium Urine WBC (Auto) 02/29/20 02/29/20 02/29/20 04:05 05:14 05:33 WBC RBC Hgb Hct MCV MCH RDW Plt Count Lymph % (Auto) Lymph # (Auto) Emery # (Auto) Seg Neutrophils % Seg Neuts % (Manual) Lymphocytes % (Manual) Monocytes % (Manual) Basophils % (Manual) Seg Neutrophils # Seg Neutrophils # Man Lymphocytes # (Manual) Monocytes # (Manual) Eosinophils # (Manual) Basophils # (Manual) PT INR D-Dimer ABG pH POC ABG pCO2 54.3 H POC ABG pO2 124.8 H ABG pO2 ABG HCO3 ABG O2 Saturation ABG Base Excess ABG Hemoglobin ABG Oxyhemoglobin ABG Potassium ABG Glucose 185 H Oxyhemoglobin Carboxyhemoglobin Sodium 148 H Potassium Chloride Carbon Dioxide 33 H BUN Creatinine < 0.2 L Glucose 173 H POC Glucose 152 H Calcium Ferritin Total Bilirubin Alkaline Phosphatase Lactate Dehydrogenase Total Creatine Kinase CK-MB (CK-2) Rel Index Troponin T C-Reactive Protein Total Protein Albumin Prealbumin LDL Cholesterol Direct Arterial Blood Glucose 185 H Arterial Blood Ionized Calcium Urine WBC (Auto) 03/01/20 03/01/20 03/01/20 00:00 03:45 04:33 WBC 23.1 H RBC Hgb Hct MCV MCH 27 L RDW 15.3 H Plt Count Lymph % (Auto) Lymph # (Auto) Emery # (Auto) Seg Neutrophils % Seg Neuts % (Manual) 92.0 H Lymphocytes % (Manual) 6.0 L Monocytes % (Manual) Basophils % (Manual) Seg Neutrophils # Seg Neutrophils # Man 21.3 H Lymphocytes # (Manual) Monocytes # (Manual) Eosinophils # (Manual) 0.5 H Basophils # (Manual) PT INR D-Dimer ABG pH 7.492 H POC ABG pCO2 POC ABG pO2 ABG pO2 157.1 H ABG HCO3 32.3 H ABG O2 Saturation ABG Base Excess 8.1 H ABG Hemoglobin 13.2 L ABG Oxyhemoglobin ABG Potassium ABG Glucose Oxyhemoglobin Carboxyhemoglobin Sodium Potassium Chloride Carbon Dioxide BUN Creatinine Glucose POC Glucose 109 H Calcium Ferritin Total Bilirubin Alkaline Phosphatase Lactate Dehydrogenase Total Creatine Kinase CK-MB (CK-2) Rel Index Troponin T C-Reactive Protein Total Protein Albumin Prealbumin LDL Cholesterol Direct Arterial Blood Glucose Arterial Blood Ionized Calcium Urine WBC (Auto) 03/01/20 03/01/20 03/01/20 04:33 05:29 12:32 WBC RBC Hgb Hct MCV MCH RDW Plt Count Lymph % (Auto) Lymph # (Auto) Emery # (Auto) Seg Neutrophils % Seg Neuts % (Manual) Lymphocytes % (Manual) Monocytes % (Manual) Basophils % (Manual) Seg Neutrophils # Seg Neutrophils # Man Lymphocytes # (Manual) Monocytes # (Manual) Eosinophils # (Manual) Basophils # (Manual) PT INR D-Dimer ABG pH POC ABG pCO2 POC ABG pO2 ABG pO2 ABG HCO3 ABG O2 Saturation ABG Base Excess ABG Hemoglobin ABG Oxyhemoglobin ABG Potassium ABG Glucose Oxyhemoglobin Carboxyhemoglobin Sodium 146 H Potassium Chloride Carbon Dioxide 32 H BUN Creatinine < 0.2 L Glucose 120 H POC Glucose 120 H 128 H Calcium Ferritin Total Bilirubin Alkaline Phosphatase Lactate Dehydrogenase Total Creatine Kinase CK-MB (CK-2) Rel Index Troponin T C-Reactive Protein Total Protein Albumin Prealbumin LDL Cholesterol Direct Arterial Blood Glucose Arterial Blood Ionized Calcium Urine WBC (Auto) 11/04/20 11/04/20 11/05/20 17:38 23:46 06:13 WBC RBC Hgb Hct MCV MCH RDW Plt Count Lymph % (Auto) Lymph # (Auto) Emery # (Auto) Seg Neutrophils % Seg Neuts % (Manual) Lymphocytes % (Manual) Monocytes % (Manual) Basophils % (Manual) Seg Neutrophils # Seg Neutrophils # Man Lymphocytes # (Manual) Monocytes # (Manual) Eosinophils # (Manual) Basophils # (Manual) PT INR D-Dimer ABG pH POC ABG pCO2 POC ABG pO2 ABG pO2 ABG HCO3 ABG O2 Saturation ABG Base Excess ABG Hemoglobin ABG Oxyhemoglobin ABG Potassium ABG Glucose Oxyhemoglobin Carboxyhemoglobin Sodium Potassium Chloride Carbon Dioxide BUN Creatinine Glucose POC Glucose 114 H 121 H 120 H Calcium Ferritin Total Bilirubin Alkaline Phosphatase Lactate Dehydrogenase Total Creatine Kinase CK-MB (CK-2) Rel Index Troponin T C-Reactive Protein Total Protein Albumin Prealbumin LDL Cholesterol Direct Arterial Blood Glucose Arterial Blood Ionized Calcium Urine WBC (Auto) 03/02/20 03/02/20 03/03/20 09:47 09:47 10:21 WBC 23.6 H RBC Hgb Hct MCV MCH RDW 15.3 H Plt Count 494 H Lymph % (Auto) Lymph # (Auto) Emery # (Auto) Seg Neutrophils % Seg Neuts % (Manual) 85.0 H Lymphocytes % (Manual) 6.0 L Monocytes % (Manual) Basophils % (Manual) Seg Neutrophils # Seg Neutrophils # Man 20.1 H Lymphocytes # (Manual) Monocytes # (Manual) 1.7 H Eosinophils # (Manual) Basophils # (Manual) PT INR D-Dimer ABG pH POC ABG pCO2 POC ABG pO2 ABG pO2 ABG HCO3 ABG O2 Saturation ABG Base Excess ABG Hemoglobin ABG Oxyhemoglobin ABG Potassium 3.3 L ABG Glucose 158 H Oxyhemoglobin Carboxyhemoglobin Sodium Potassium Chloride Carbon Dioxide BUN Creatinine < 0.2 L Glucose 177 H POC Glucose Calcium Ferritin Total Bilirubin Alkaline Phosphatase Lactate Dehydrogenase Total Creatine Kinase CK-MB (CK-2) Rel Index Troponin T C-Reactive Protein Total Protein Albumin Prealbumin LDL Cholesterol Direct Arterial Blood Glucose 158 H Arterial Blood Ionized Calcium Urine WBC (Auto) 03/03/20 03/04/20 03/04/20 21:30 00:00 12:23 WBC RBC Hgb Hct MCV MCH RDW Plt Count Lymph % (Auto) Lymph # (Auto) Emery # (Auto) Seg Neutrophils % Seg Neuts % (Manual) Lymphocytes % (Manual) Monocytes % (Manual) Basophils % (Manual) Seg Neutrophils # Seg Neutrophils # Man Lymphocytes # (Manual) Monocytes # (Manual) Eosinophils # (Manual) Basophils # (Manual) PT INR D-Dimer ABG pH 7.328 L POC ABG pCO2 POC ABG pO2 ABG pO2 68.4 L ABG HCO3 35.0 H ABG O2 Saturation 93.9 L ABG Base Excess 6.8 H ABG Hemoglobin 12.7 L ABG Oxyhemoglobin ABG Potassium ABG Glucose Oxyhemoglobin 91.9 L Carboxyhemoglobin Sodium Potassium Chloride Carbon Dioxide BUN Creatinine Glucose POC Glucose 187 H 163 H Calcium Ferritin Total Bilirubin Alkaline Phosphatase Lactate Dehydrogenase Total Creatine Kinase CK-MB (CK-2) Rel Index Troponin T C-Reactive Protein Total Protein Albumin Prealbumin LDL Cholesterol Direct Arterial Blood Glucose Arterial Blood Ionized Calcium Urine WBC (Auto) 03/04/20 03/04/20 03/05/20 18:15 21:30 06:02 WBC RBC Hgb Hct MCV MCH RDW Plt Count Lymph % (Auto) Lymph # (Auto) Emery # (Auto) Seg Neutrophils % Seg Neuts % (Manual) Lymphocytes % (Manual) Monocytes % (Manual) Basophils % (Manual) Seg Neutrophils # Seg Neutrophils # Man Lymphocytes # (Manual) Monocytes # (Manual) Eosinophils # (Manual) Basophils # (Manual) PT INR D-Dimer ABG pH 7.297 L POC ABG pCO2 POC ABG pO2 ABG pO2 ABG HCO3 41.0 H ABG O2 Saturation ABG Base Excess 11.0 H ABG Hemoglobin 13.1 L ABG Oxyhemoglobin ABG Potassium ABG Glucose Oxyhemoglobin 94.5 L Carboxyhemoglobin Sodium Potassium Chloride Carbon Dioxide BUN Creatinine Glucose POC Glucose 192 H 127 H Calcium Ferritin Total Bilirubin Alkaline Phosphatase Lactate Dehydrogenase Total Creatine Kinase CK-MB (CK-2) Rel Index Troponin T C-Reactive Protein Total Protein Albumin Prealbumin LDL Cholesterol Direct Arterial Blood Glucose Arterial Blood Ionized Calcium Urine WBC (Auto) 03/05/20 03/05/20 03/06/20 12:09 16:42 00:24 WBC RBC Hgb Hct MCV MCH RDW Plt Count Lymph % (Auto) Lymph # (Auto) [place]y # (Auto) Seg Neutrophils % Seg Neuts % (Manual) Lymphocytes % (Manual) Monocytes % (Manual) Basophils % (Manual) Seg Neutrophils # Seg Neutrophils # Man Lymphocytes # (Manual) Monocytes # (Manual) Eosinophils # (Manual) Basophils # (Manual) PT INR D-Dimer ABG pH POC ABG pCO2 POC ABG pO2 ABG pO2 ABG HCO3 ABG O2 Saturation ABG Base Excess ABG Hemoglobin ABG Oxyhemoglobin ABG Potassium ABG Glucose Oxyhemoglobin Carboxyhemoglobin Sodium Potassium Chloride Carbon Dioxide BUN Creatinine Glucose POC Glucose 147 H 114 H 134 H Calcium Ferritin Total Bilirubin Alkaline Phosphatase Lactate Dehydrogenase Total Creatine Kinase CK-MB (CK-2) Rel Index Troponin T C-Reactive Protein Total Protein Albumin Prealbumin LDL Cholesterol Direct Arterial Blood Glucose Arterial Blood Ionized Calcium Urine WBC (Auto) 03/06/20 03/06/20 03/06/20 04:34 05:53 06:08 WBC 25.4 H RBC Hgb 10.5 L Hct 32.7 L MCV MCH 27 L RDW 15.3 H Plt Count 634 H Lymph % (Auto) Lymph # (Auto) [place] # (Auto) Seg Neutrophils % Seg Neuts % (Manual) 88.0 H Lymphocytes % (Manual) 2.0 L Monocytes % (Manual) 8.0 H Basophils % (Manual) Seg Neutrophils # Seg Neutrophils # Man 22.4 H Lymphocytes # (Manual) 0.5 L Monocytes # (Manual) 2.0 H Eosinophils # (Manual) Basophils # (Manual) PT INR D-Dimer ABG pH POC ABG pCO2 POC ABG pO2 ABG pO2 ABG HCO3 37.9 H ABG O2 Saturation ABG Base Excess 11.4 H ABG Hemoglobin 10.6 L ABG Oxyhemoglobin ABG Potassium ABG Glucose Oxyhemoglobin 94.7 L Carboxyhemoglobin Sodium Potassium Chloride Carbon Dioxide BUN Creatinine Glucose POC Glucose 135 H Calcium Ferritin Total Bilirubin Alkaline Phosphatase Lactate Dehydrogenase Total Creatine Kinase CK-MB (CK-2) Rel Index Troponin T C-Reactive Protein Total Protein Albumin Prealbumin LDL Cholesterol Direct Arterial Blood Glucose Arterial Blood Ionized Calcium Urine WBC (Auto) 03/06/20 03/06/20 03/06/20 06:08 12:19 19:10 WBC RBC Hgb Hct MCV MCH RDW Plt Count Lymph % (Auto) Lymph # (Auto) [place] # (Auto) Seg Neutrophils % Seg Neuts % (Manual) Lymphocytes % (Manual) Monocytes % (Manual) Basophils % (Manual) Seg Neutrophils # Seg Neutrophils # Man Lymphocytes # (Manual) Monocytes # (Manual) Eosinophils # (Manual) Basophils # (Manual) PT INR D-Dimer ABG pH POC ABG pCO2 POC ABG pO2 ABG pO2 ABG HCO3 ABG O2 Saturation ABG Base Excess ABG Hemoglobin ABG Oxyhemoglobin ABG Potassium ABG Glucose Oxyhemoglobin Carboxyhemoglobin Sodium 150 H D Potassium Chloride Carbon Dioxide 39 H D BUN 23 H Creatinine < 0.2 L Glucose 144 H POC Glucose 169 H 152 H Calcium Ferritin Total Bilirubin Alkaline Phosphatase Lactate Dehydrogenase Total Creatine Kinase CK-MB (CK-2) Rel Index Troponin T C-Reactive Protein Total Protein Albumin 3.3 L Prealbumin LDL Cholesterol Direct Arterial Blood Glucose Arterial Blood Ionized Calcium Urine WBC (Auto) 03/06/20 03/07/20 03/07/20 23:58 04:25 04:25 WBC 22.1 H RBC Hgb 10.9 L Hct 32.9 L MCV MCH RDW 15.5 H Plt Count 739 H Lymph % (Auto) 7.8 L Lymph # (Auto) [place] # (Auto) 1.3 H Seg Neutrophils % 85.5 H Seg Neuts % (Manual) Lymphocytes % (Manual) Monocytes % (Manual) Basophils % (Manual) Seg Neutrophils # 18.9 H Seg Neutrophils # Man Lymphocytes # (Manual) Monocytes # (Manual) Eosinophils # (Manual) Basophils # (Manual) PT INR D-Dimer ABG pH POC ABG pCO2 POC ABG pO2 ABG pO2 ABG HCO3 ABG O2 Saturation ABG Base Excess ABG Hemoglobin ABG Oxyhemoglobin ABG Potassium ABG Glucose Oxyhemoglobin Carboxyhemoglobin Sodium 146 H Potassium Chloride Carbon Dioxide 37 H BUN Creatinine < 0.2 L Glucose 118 H POC Glucose 111 H Calcium Ferritin Total Bilirubin Alkaline Phosphatase Lactate Dehydrogenase Total Creatine Kinase CK-MB (CK-2) Rel Index Troponin T C-Reactive Protein Total Protein Albumin 3.7 L Prealbumin LDL Cholesterol Direct Arterial Blood Glucose Arterial Blood Ionized Calcium Urine WBC (Auto) 03/07/20 03/07/20 03/07/20 05:20 17:45 23:32 WBC RBC Hgb Hct MCV MCH RDW Plt Count Lymph % (Auto) Lymph # (Auto) [place] # (Auto) Seg Neutrophils % Seg Neuts % (Manual) Lymphocytes % (Manual) Monocytes % (Manual) Basophils % (Manual) Seg Neutrophils # Seg Neutrophils # Man Lymphocytes # (Manual) Monocytes # (Manual) Eosinophils # (Manual) Basophils # (Manual) PT INR D-Dimer ABG pH POC ABG pCO2 POC ABG pO2 ABG pO2 ABG HCO3 ABG O2 Saturation ABG Base Excess ABG Hemoglobin ABG Oxyhemoglobin ABG Potassium ABG Glucose Oxyhemoglobin Carboxyhemoglobin Sodium Potassium Chloride Carbon Dioxide BUN Creatinine Glucose POC Glucose 113 H 124 H 210 H Calcium Ferritin Total Bilirubin Alkaline Phosphatase Lactate Dehydrogenase Total Creatine Kinase CK-MB (CK-2) Rel Index Troponin T C-Reactive Protein Total Protein Albumin Prealbumin LDL Cholesterol Direct Arterial Blood Glucose Arterial Blood Ionized Calcium Urine WBC (Auto) 03/08/20 03/08/20 03/08/20 05:35 06:43 06:43 WBC 28.9 H RBC 3.53 L Hgb 9.7 L Hct 30.3 L MCV MCH RDW 15.6 H Plt Count 578 H Lymph % (Auto) Lymph # (Auto) [place] # (Auto) Seg Neutrophils % Seg Neuts % (Manual) 93.0 H Lymphocytes % (Manual) 4.0 L Monocytes % (Manual) Basophils % (Manual) Seg Neutrophils # Seg Neutrophils # Man 26.9 H Lymphocytes # (Manual) Monocytes # (Manual) Eosinophils # (Manual) Basophils # (Manual) PT INR D-Dimer ABG pH POC ABG pCO2 POC ABG pO2 ABG pO2 ABG HCO3 ABG O2 Saturation ABG Base Excess ABG Hemoglobin ABG Oxyhemoglobin ABG Potassium ABG Glucose Oxyhemoglobin Carboxyhemoglobin Sodium 146 H Potassium Chloride Carbon Dioxide 35 H BUN 34 H Creatinine 0.3 L D Glucose 125 H POC Glucose 147 H Calcium Ferritin Total Bilirubin Alkaline Phosphatase Lactate Dehydrogenase Total Creatine Kinase CK-MB (CK-2) Rel Index Troponin T C-Reactive Protein Total Protein 5.9 L Albumin 3.2 L Prealbumin LDL Cholesterol Direct Arterial Blood Glucose Arterial Blood Ionized Calcium Urine WBC (Auto) 03/08/20 03/08/20 03/08/20 08:57 11:14 12:34 WBC RBC Hgb Hct MCV MCH RDW Plt Count Lymph % (Auto) Lymph # (Auto) [place] # (Auto) Seg Neutrophils % Seg Neuts % (Manual) Lymphocytes % (Manual) Monocytes % (Manual) Basophils % (Manual) Seg Neutrophils # Seg Neutrophils # Man Lymphocytes # (Manual) Monocytes # (Manual) Eosinophils # (Manual) Basophils # (Manual) PT INR D-Dimer ABG pH POC ABG pCO2 63.1 H POC ABG pO2 ABG pO2 ABG HCO3 ABG O2 Saturation ABG Base Excess ABG Hemoglobin 10.9 L ABG Oxyhemoglobin ABG Potassium ABG Glucose 176 H Oxyhemoglobin Carboxyhemoglobin Sodium Potassium Chloride Carbon Dioxide BUN Creatinine Glucose POC Glucose 171 H Calcium Ferritin Total Bilirubin Alkaline Phosphatase Lactate Dehydrogenase Total Creatine Kinase CK-MB (CK-2) Rel Index Troponin T C-Reactive Protein Total Protein Albumin Prealbumin LDL Cholesterol Direct Arterial Blood Glucose 176 H Arterial Blood Ionized Calcium 4.5 L Urine WBC (Auto) 10.0 H 03/08/20 03/08/20 03/09/20 18:02 23:43 05:49 WBC RBC Hgb Hct MCV MCH RDW Plt Count Lymph % (Auto) Lymph # (Auto) [place] # (Auto) Seg Neutrophils % Seg Neuts % (Manual) Lymphocytes % (Manual) Monocytes % (Manual) Basophils % (Manual) Seg Neutrophils # Seg Neutrophils # Man Lymphocytes # (Manual) Monocytes # (Manual) Eosinophils # (Manual) Basophils # (Manual) PT INR D-Dimer ABG pH POC ABG pCO2 POC ABG pO2 ABG pO2 ABG HCO3 ABG O2 Saturation ABG Base Excess ABG Hemoglobin ABG Oxyhemoglobin ABG Potassium ABG Glucose Oxyhemoglobin Carboxyhemoglobin Sodium Potassium Chloride Carbon Dioxide BUN Creatinine Glucose POC Glucose 157 H 134 H 163 H Calcium Ferritin Total Bilirubin Alkaline Phosphatase Lactate Dehydrogenase Total Creatine Kinase CK-MB (CK-2) Rel Index Troponin T C-Reactive Protein Total Protein Albumin Prealbumin LDL Cholesterol Direct Arterial Blood Glucose Arterial Blood Ionized Calcium Urine WBC (Auto) 03/09/20 03/09/20 03/09/20 08:35 08:35 12:11 WBC 23.4 H RBC 3.36 L Hgb 9.3 L Hct 28.8 L MCV MCH RDW 15.9 H Plt Count 521 H Lymph % (Auto) Lymph # (Auto) [place] # (Auto) Seg Neutrophils % Seg Neuts % (Manual) 87.0 H Lymphocytes % (Manual) 4.0 L Monocytes % (Manual) 9.0 H Basophils % (Manual) Seg Neutrophils # Seg Neutrophils # Man 20.4 H Lymphocytes # (Manual) 0.9 L Monocytes # (Manual) 2.1 H Eosinophils # (Manual) Basophils # (Manual) PT INR D-Dimer ABG pH POC ABG pCO2 POC ABG pO2 ABG pO2 ABG HCO3 ABG O2 Saturation ABG Base Excess ABG Hemoglobin ABG Oxyhemoglobin ABG Potassium ABG Glucose Oxyhemoglobin Carboxyhemoglobin Sodium 147 H Potassium Chloride Carbon Dioxide 37 H BUN 63 H Creatinine Glucose 154 H POC Glucose 128 H Calcium Ferritin Total Bilirubin Alkaline Phosphatase Lactate Dehydrogenase Total Creatine Kinase CK-MB (CK-2) Rel Index Troponin T C-Reactive Protein Total Protein Albumin Prealbumin LDL Cholesterol Direct Arterial Blood Glucose Arterial Blood Ionized Calcium Urine WBC (Auto) 03/09/20 03/10/20 03/10/20 17:51 00:25 05:41 WBC RBC Hgb Hct MCV MCH RDW Plt Count Lymph % (Auto) Lymph # (Auto) [place] # (Auto) Seg Neutrophils % Seg Neuts % (Manual) Lymphocytes % (Manual) Monocytes % (Manual) Basophils % (Manual) Seg Neutrophils # Seg Neutrophils # Man Lymphocytes # (Manual) Monocytes # (Manual) Eosinophils # (Manual) Basophils # (Manual) PT INR D-Dimer ABG pH POC ABG pCO2 POC ABG pO2 ABG pO2 ABG HCO3 ABG O2 Saturation ABG Base Excess ABG Hemoglobin ABG Oxyhemoglobin ABG Potassium ABG Glucose Oxyhemoglobin Carboxyhemoglobin Sodium Potassium Chloride Carbon Dioxide BUN Creatinine Glucose POC Glucose 127 H 128 H 153 H Calcium Ferritin Total Bilirubin Alkaline Phosphatase Lactate Dehydrogenase Total Creatine Kinase CK-MB (CK-2) Rel Index Troponin T C-Reactive Protein Total Protein Albumin Prealbumin LDL Cholesterol Direct Arterial Blood Glucose Arterial Blood Ionized Calcium Urine WBC (Auto) 03/10/20 03/10/20 03/10/20 06:14 06:14 12:02 WBC 18.3 H RBC 3.45 L Hgb 9.5 L Hct 29.5 L MCV MCH RDW 16.1 H Plt Count 494 H Lymph % (Auto) Lymph # (Auto) [place] # (Auto) Seg Neutrophils % Seg Neuts % (Manual) 95.0 H Lymphocytes % (Manual) 1.0 L Monocytes % (Manual) Basophils % (Manual) Seg Neutrophils # Seg Neutrophils # Man 17.4 H Lymphocytes # (Manual) 0.2 L Monocytes # (Manual) Eosinophils # (Manual) Basophils # (Manual) PT INR D-Dimer ABG pH POC ABG pCO2 POC ABG pO2 ABG pO2 ABG HCO3 ABG O2 Saturation ABG Base Excess ABG Hemoglobin ABG Oxyhemoglobin ABG Potassium ABG Glucose Oxyhemoglobin Carboxyhemoglobin Sodium 149 H Potassium Chloride Carbon Dioxide 35 H BUN 34 H Creatinine 0.2 L D Glucose 177 H POC Glucose 151 H Calcium Ferritin Total Bilirubin Alkaline Phosphatase Lactate Dehydrogenase Total Creatine Kinase CK-MB (CK-2) Rel Index Troponin T C-Reactive Protein Total Protein Albumin Prealbumin LDL Cholesterol Direct Arterial Blood Glucose Arterial Blood Ionized Calcium Urine WBC (Auto) 03/10/20 03/10/20 03/11/20 17:41 23:53 05:02 WBC RBC Hgb Hct MCV MCH RDW Plt Count Lymph % (Auto) Lymph # (Auto) [place] # (Auto) Seg Neutrophils % Seg Neuts % (Manual) Lymphocytes % (Manual) Monocytes % (Manual) Basophils % (Manual) Seg Neutrophils # Seg Neutrophils # Man Lymphocytes # (Manual) Monocytes # (Manual) Eosinophils # (Manual) Basophils # (Manual) PT INR D-Dimer ABG pH POC ABG pCO2 POC ABG pO2 ABG pO2 ABG HCO3 ABG O2 Saturation ABG Base Excess ABG Hemoglobin ABG Oxyhemoglobin ABG Potassium ABG Glucose Oxyhemoglobin Carboxyhemoglobin Sodium Potassium Chloride Carbon Dioxide BUN Creatinine Glucose POC Glucose 168 H 142 H 146 H Calcium Ferritin Total Bilirubin Alkaline Phosphatase Lactate Dehydrogenase Total Creatine Kinase CK-MB (CK-2) Rel Index Troponin T C-Reactive Protein Total Protein Albumin Prealbumin LDL Cholesterol Direct Arterial Blood Glucose Arterial Blood Ionized Calcium Urine WBC (Auto) 03/11/20 03/11/20 03/11/20 11:30 14:01 14:01 WBC 19.7 H RBC 3.04 L Hgb 8.7 L Hct 25.8 L MCV MCH RDW 15.6 H Plt Count Lymph % (Auto) Lymph # (Auto) [place] # (Auto) Seg Neutrophils % Seg Neuts % (Manual) Lymphocytes % (Manual) Monocytes % (Manual) Basophils % (Manual) Seg Neutrophils # Seg Neutrophils # Man Lymphocytes # (Manual) Monocytes # (Manual) Eosinophils # (Manual) Basophils # (Manual) PT INR D-Dimer ABG pH POC ABG pCO2 POC ABG pO2 ABG pO2 ABG HCO3 ABG O2 Saturation ABG Base Excess ABG Hemoglobin ABG Oxyhemoglobin ABG Potassium ABG Glucose Oxyhemoglobin Carboxyhemoglobin Sodium 151 H Potassium Chloride Carbon Dioxide 37 H BUN Creatinine < 0.2 L Glucose 171 H POC Glucose 248 H Calcium Ferritin Total Bilirubin Alkaline Phosphatase Lactate Dehydrogenase Total Creatine Kinase CK-MB (CK-2) Rel Index Troponin T C-Reactive Protein Total Protein Albumin Prealbumin LDL Cholesterol Direct Arterial Blood Glucose Arterial Blood Ionized Calcium Urine WBC (Auto) 03/11/20 03/11/20 03/12/20 17:09 23:52 04:39 WBC 19.9 H RBC 3.16 L Hgb 8.9 L Hct 27.5 L MCV MCH RDW 15.7 H Plt Count Lymph % (Auto) 6.8 L Lymph # (Auto) [place] # (Auto) 1.2 H Seg Neutrophils % 86.0 H Seg Neuts % (Manual) Lymphocytes % (Manual) Monocytes % (Manual) Basophils % (Manual) Seg Neutrophils # 17.1 H Seg Neutrophils # Man Lymphocytes # (Manual) Monocytes # (Manual) Eosinophils # (Manual) Basophils # (Manual) PT INR D-Dimer ABG pH POC ABG pCO2 POC ABG pO2 ABG pO2 ABG HCO3 ABG O2 Saturation ABG Base Excess ABG Hemoglobin ABG Oxyhemoglobin ABG Potassium ABG Glucose Oxyhemoglobin Carboxyhemoglobin Sodium Potassium Chloride Carbon Dioxide BUN Creatinine Glucose POC Glucose 124 H 131 H Calcium Ferritin Total Bilirubin Alkaline Phosphatase Lactate Dehydrogenase Total Creatine Kinase CK-MB (CK-2) Rel Index Troponin T C-Reactive Protein Total Protein Albumin Prealbumin LDL Cholesterol Direct Arterial Blood Glucose Arterial Blood Ionized Calcium Urine WBC (Auto) 03/12/20 03/12/20 03/12/20 04:39 05:28 11:34 WBC RBC Hgb Hct MCV MCH RDW Plt Count Lymph % (Auto) Lymph # (Auto) [place] # (Auto) Seg Neutrophils % Seg Neuts % (Manual) Lymphocytes % (Manual) Monocytes % (Manual) Basophils % (Manual) Seg Neutrophils # Seg Neutrophils # Man Lymphocytes # (Manual) Monocytes # (Manual) Eosinophils # (Manual) Basophils # (Manual) PT INR D-Dimer ABG pH POC ABG pCO2 POC ABG pO2 ABG pO2 ABG HCO3 ABG O2 Saturation ABG Base Excess ABG Hemoglobin ABG Oxyhemoglobin ABG Potassium ABG Glucose Oxyhemoglobin Carboxyhemoglobin Sodium 147 H Potassium Chloride Carbon Dioxide 40 H BUN Creatinine < 0.2 L Glucose 175 H POC Glucose 167 H 144 H Calcium Ferritin Total Bilirubin Alkaline Phosphatase Lactate Dehydrogenase Total Creatine Kinase CK-MB (CK-2) Rel Index Troponin T C-Reactive Protein Total Protein Albumin Prealbumin LDL Cholesterol Direct Arterial Blood Glucose Arterial Blood Ionized Calcium Urine WBC (Auto) 03/12/20 03/12/20 03/13/20 17:32 23:57 05:57 WBC RBC Hgb Hct MCV MCH RDW Plt Count Lymph % (Auto) Lymph # (Auto) [place] # (Auto) Seg Neutrophils % Seg Neuts % (Manual) Lymphocytes % (Manual) Monocytes % (Manual) Basophils % (Manual) Seg Neutrophils # Seg Neutrophils # Man Lymphocytes # (Manual) Monocytes # (Manual) Eosinophils # (Manual) Basophils # (Manual) PT INR D-Dimer ABG pH POC ABG pCO2 POC ABG pO2 ABG pO2 ABG HCO3 ABG O2 Saturation ABG Base Excess ABG Hemoglobin ABG Oxyhemoglobin ABG Potassium ABG Glucose Oxyhemoglobin Carboxyhemoglobin Sodium Potassium Chloride Carbon Dioxide BUN Creatinine Glucose POC Glucose 141 H 137 H 161 H Calcium Ferritin Total Bilirubin Alkaline Phosphatase Lactate Dehydrogenase Total Creatine Kinase CK-MB (CK-2) Rel Index Troponin T C-Reactive Protein Total Protein Albumin Prealbumin LDL Cholesterol Direct Arterial Blood Glucose Arterial Blood Ionized Calcium Urine WBC (Auto) 03/13/20 03/13/20 03/13/20 12:28 14:14 18:39 WBC RBC Hgb Hct MCV MCH RDW Plt Count Lymph % (Auto) Lymph # (Auto) [place] # (Auto) Seg Neutrophils % Seg Neuts % (Manual) Lymphocytes % (Manual) Monocytes % (Manual) Basophils % (Manual) Seg Neutrophils # Seg Neutrophils # Man Lymphocytes # (Manual) Monocytes # (Manual) Eosinophils # (Manual) Basophils # (Manual) PT INR D-Dimer ABG pH POC ABG pCO2 POC ABG pO2 ABG pO2 ABG HCO3 ABG O2 Saturation ABG Base Excess ABG Hemoglobin ABG Oxyhemoglobin ABG Potassium ABG Glucose Oxyhemoglobin Carboxyhemoglobin Sodium Potassium Chloride Carbon Dioxide 39 H BUN Creatinine < 0.2 L Glucose 129 H POC Glucose 130 H 125 H Calcium Ferritin Total Bilirubin Alkaline Phosphatase Lactate Dehydrogenase Total Creatine Kinase CK-MB (CK-2) Rel Index Troponin T C-Reactive Protein Total Protein Albumin Prealbumin LDL Cholesterol Direct Arterial Blood Glucose Arterial Blood Ionized Calcium Urine WBC (Auto) 03/13/20 03/14/20 03/14/20 23:33 05:24 08:07 WBC 16.8 H RBC 2.81 L Hgb 7.9 L Hct 23.9 L MCV MCH RDW 15.9 H Plt Count Lymph % (Auto) Lymph # (Auto) [place] # (Auto) Seg Neutrophils % Seg Neuts % (Manual) 84.0 H Lymphocytes % (Manual) 10.0 L Monocytes % (Manual) Basophils % (Manual) Seg Neutrophils # Seg Neutrophils # Man 14.1 H Lymphocytes # (Manual) Monocytes # (Manual) Eosinophils # (Manual) Basophils # (Manual) PT INR D-Dimer ABG pH POC ABG pCO2 POC ABG pO2 ABG pO2 ABG HCO3 ABG O2 Saturation ABG Base Excess ABG Hemoglobin ABG Oxyhemoglobin ABG Potassium ABG Glucose Oxyhemoglobin Carboxyhemoglobin Sodium Potassium Chloride Carbon Dioxide BUN Creatinine Glucose POC Glucose 146 H 125 H Calcium Ferritin Total Bilirubin Alkaline Phosphatase Lactate Dehydrogenase Total Creatine Kinase CK-MB (CK-2) Rel Index Troponin T C-Reactive Protein Total Protein Albumin Prealbumin LDL Cholesterol Direct Arterial Blood Glucose Arterial Blood Ionized Calcium Urine WBC (Auto) 03/14/20 03/14/20 03/14/20 08:07 12:21 18:26 WBC RBC Hgb Hct MCV MCH RDW Plt Count Lymph % (Auto) Lymph # (Auto) [place] # (Auto) Seg Neutrophils % Seg Neuts % (Manual) Lymphocytes % (Manual) Monocytes % (Manual) Basophils % (Manual) Seg Neutrophils # Seg Neutrophils # Man Lymphocytes # (Manual) Monocytes # (Manual) Eosinophils # (Manual) Basophils # (Manual) PT INR D-Dimer ABG pH POC ABG pCO2 POC ABG pO2 ABG pO2 ABG HCO3 ABG O2 Saturation ABG Base Excess ABG Hemoglobin ABG Oxyhemoglobin ABG Potassium ABG Glucose Oxyhemoglobin Carboxyhemoglobin Sodium Potassium Chloride 97.0 L Carbon Dioxide 37 H BUN Creatinine < 0.2 L Glucose 129 H POC Glucose 109 H 142 H Calcium 8.3 L Ferritin Total Bilirubin Alkaline Phosphatase Lactate Dehydrogenase Total Creatine Kinase CK-MB (CK-2) Rel Index Troponin T C-Reactive Protein Total Protein Albumin Prealbumin LDL Cholesterol Direct Arterial Blood Glucose Arterial Blood Ionized Calcium Urine WBC (Auto) 03/14/20 03/15/20 03/15/20 23:57 05:46 08:06 WBC 19.7 H RBC 3.29 L Hgb 9.1 L Hct 28.0 L MCV MCH RDW 15.9 H Plt Count Lymph % (Auto) Lymph # (Auto) [place] # (Auto) Seg Neutrophils % Seg Neuts % (Manual) Lymphocytes % (Manual) Monocytes % (Manual) Basophils % (Manual) Seg Neutrophils # Seg Neutrophils # Man Lymphocytes # (Manual) Monocytes # (Manual) Eosinophils # (Manual) Basophils # (Manual) PT INR D-Dimer ABG pH POC ABG pCO2 POC ABG pO2 ABG pO2 ABG HCO3 ABG O2 Saturation ABG Base Excess ABG Hemoglobin ABG Oxyhemoglobin ABG Potassium ABG Glucose Oxyhemoglobin Carboxyhemoglobin Sodium Potassium Chloride Carbon Dioxide BUN Creatinine Glucose POC Glucose 157 H 118 H Calcium Ferritin Total Bilirubin Alkaline Phosphatase Lactate Dehydrogenase Total Creatine Kinase CK-MB (CK-2) Rel Index Troponin T C-Reactive Protein Total Protein Albumin Prealbumin LDL Cholesterol Direct Arterial Blood Glucose Arterial Blood Ionized Calcium Urine WBC (Auto) 03/15/20 03/15/20 03/15/20 08:06 12:44 18:09 WBC RBC Hgb Hct MCV MCH RDW Plt Count Lymph % (Auto) Lymph # (Auto) [place] # (Auto) Seg Neutrophils % Seg Neuts % (Manual) Lymphocytes % (Manual) Monocytes % (Manual) Basophils % (Manual) Seg Neutrophils # Seg Neutrophils # Man Lymphocytes # (Manual) Monocytes # (Manual) Eosinophils # (Manual) Basophils # (Manual) PT INR D-Dimer ABG pH POC ABG pCO2 POC ABG pO2 ABG pO2 ABG HCO3 ABG O2 Saturation ABG Base Excess ABG Hemoglobin ABG Oxyhemoglobin ABG Potassium ABG Glucose Oxyhemoglobin Carboxyhemoglobin Sodium 136 L Potassium Chloride 93.6 L Carbon Dioxide 37 H BUN Creatinine < 0.2 L Glucose 132 H POC Glucose 151 H 164 H Calcium Ferritin Total Bilirubin Alkaline Phosphatase Lactate Dehydrogenase Total Creatine Kinase CK-MB (CK-2) Rel Index Troponin T C-Reactive Protein Total Protein Albumin Prealbumin LDL Cholesterol Direct Arterial Blood Glucose Arterial Blood Ionized Calcium Urine WBC (Auto) 03/15/20 03/16/20 03/16/20 23:26 05:39 11:58 WBC RBC Hgb Hct MCV MCH RDW Plt Count Lymph % (Auto) Lymph # (Auto) [place] # (Auto) Seg Neutrophils % Seg Neuts % (Manual) Lymphocytes % (Manual) Monocytes % (Manual) Basophils % (Manual) Seg Neutrophils # Seg Neutrophils # Man Lymphocytes # (Manual) Monocytes # (Manual) Eosinophils # (Manual) Basophils # (Manual) PT INR D-Dimer ABG pH POC ABG pCO2 POC ABG pO2 ABG pO2 ABG HCO3 ABG O2 Saturation ABG Base Excess ABG Hemoglobin ABG Oxyhemoglobin ABG Potassium ABG Glucose Oxyhemoglobin Carboxyhemoglobin Sodium Potassium Chloride Carbon Dioxide BUN Creatinine Glucose POC Glucose 136 H 116 H 109 H Calcium Ferritin Total Bilirubin Alkaline Phosphatase Lactate Dehydrogenase Total Creatine Kinase CK-MB (CK-2) Rel Index Troponin T C-Reactive Protein Total Protein Albumin Prealbumin LDL Cholesterol Direct Arterial Blood Glucose Arterial Blood Ionized Calcium Urine WBC (Auto) 03/16/20 03/17/20 03/17/20 23:56 04:40 04:40 WBC 18.0 H RBC 3.33 L Hgb 9.5 L Hct 28.8 L MCV MCH RDW 16.4 H Plt Count 499 H Lymph % (Auto) Lymph # (Auto) [place] # (Auto) Seg Neutrophils % Seg Neuts % (Manual) 82.0 H Lymphocytes % (Manual) 8.0 L Monocytes % (Manual) Basophils % (Manual) Seg Neutrophils # Seg Neutrophils # Man 14.8 H Lymphocytes # (Manual) Monocytes # (Manual) 1.3 H Eosinophils # (Manual) Basophils # (Manual) 0.2 H PT INR D-Dimer ABG pH POC ABG pCO2 POC ABG pO2 ABG pO2 ABG HCO3 ABG O2 Saturation ABG Base Excess ABG Hemoglobin ABG Oxyhemoglobin ABG Potassium ABG Glucose Oxyhemoglobin Carboxyhemoglobin Sodium Potassium Chloride 97.7 L Carbon Dioxide 32 H BUN Creatinine < 0.2 L Glucose 114 H POC Glucose 131 H Calcium Ferritin Total Bilirubin Alkaline Phosphatase Lactate Dehydrogenase Total Creatine Kinase CK-MB (CK-2) Rel Index Troponin T C-Reactive Protein Total Protein Albumin Prealbumin LDL Cholesterol Direct Arterial Blood Glucose Arterial Blood Ionized Calcium Urine WBC (Auto) 03/18/20 03/18/20 03/18/20 00:21 05:21 11:55 WBC RBC Hgb Hct MCV MCH RDW Plt Count Lymph % (Auto) Lymph # (Auto) [place] # (Auto) Seg Neutrophils % Seg Neuts % (Manual) Lymphocytes % (Manual) Monocytes % (Manual) Basophils % (Manual) Seg Neutrophils # Seg Neutrophils # Man Lymphocytes # (Manual) Monocytes # (Manual) Eosinophils # (Manual) Basophils # (Manual) PT INR D-Dimer ABG pH POC ABG pCO2 POC ABG pO2 ABG pO2 ABG HCO3 ABG O2 Saturation ABG Base Excess ABG Hemoglobin ABG Oxyhemoglobin ABG Potassium ABG Glucose Oxyhemoglobin Carboxyhemoglobin Sodium Potassium Chloride Carbon Dioxide BUN Creatinine Glucose POC Glucose 124 H 138 H 119 H Calcium Ferritin Total Bilirubin Alkaline Phosphatase Lactate Dehydrogenase Total Creatine Kinase CK-MB (CK-2) Rel Index Troponin T C-Reactive Protein Total Protein Albumin Prealbumin LDL Cholesterol Direct Arterial Blood Glucose Arterial Blood Ionized Calcium Urine WBC (Auto) 03/18/20 03/18/20 03/19/20 17:03 23:58 05:24 WBC RBC Hgb Hct MCV MCH RDW Plt Count Lymph % (Auto) Lymph # (Auto) [place] # (Auto) Seg Neutrophils % Seg Neuts % (Manual) Lymphocytes % (Manual) Monocytes % (Manual) Basophils % (Manual) Seg Neutrophils # Seg Neutrophils # Man Lymphocytes # (Manual) Monocytes # (Manual) Eosinophils # (Manual) Basophils # (Manual) PT INR D-Dimer ABG pH POC ABG pCO2 POC ABG pO2 ABG pO2 ABG HCO3 ABG O2 Saturation ABG Base Excess ABG Hemoglobin ABG Oxyhemoglobin ABG Potassium ABG Glucose Oxyhemoglobin Carboxyhemoglobin Sodium Potassium Chloride Carbon Dioxide BUN Creatinine Glucose POC Glucose 128 H 128 H 115 H Calcium Ferritin Total Bilirubin Alkaline Phosphatase Lactate Dehydrogenase Total Creatine Kinase CK-MB (CK-2) Rel Index Troponin T C-Reactive Protein Total Protein Albumin Prealbumin LDL Cholesterol Direct Arterial Blood Glucose Arterial Blood Ionized Calcium Urine WBC (Auto) 03/19/20 03/19/20 03/19/20 08:05 08:05 11:56 WBC 16.8 H RBC 3.36 L Hgb 9.4 L Hct 28.8 L MCV MCH RDW 17.4 H Plt Count 567 H Lymph % (Auto) 7.8 L Lymph # (Auto) [place] # (Auto) 1.2 H Seg Neutrophils % 83.5 H Seg Neuts % (Manual) Lymphocytes % (Manual) Monocytes % (Manual) Basophils % (Manual) Seg Neutrophils # 14.1 H Seg Neutrophils # Man Lymphocytes # (Manual) Monocytes # (Manual) Eosinophils # (Manual) Basophils # (Manual) PT INR D-Dimer ABG pH POC ABG pCO2 POC ABG pO2 ABG pO2 ABG HCO3 ABG O2 Saturation ABG Base Excess ABG Hemoglobin ABG Oxyhemoglobin ABG Potassium ABG Glucose Oxyhemoglobin Carboxyhemoglobin Sodium Potassium Chloride Carbon Dioxide 36 H BUN Creatinine < 0.2 L Glucose 135 H POC Glucose 128 H Calcium Ferritin Total Bilirubin Alkaline Phosphatase Lactate Dehydrogenase Total Creatine Kinase CK-MB (CK-2) Rel Index Troponin T C-Reactive Protein Total Protein Albumin Prealbumin LDL Cholesterol Direct Arterial Blood Glucose Arterial Blood Ionized Calcium Urine WBC (Auto) 03/19/20 03/20/20 03/20/20 23:59 05:12 16:52 WBC RBC Hgb Hct MCV MCH RDW Plt Count Lymph % (Auto) Lymph # (Auto) [place] # (Auto) Seg Neutrophils % Seg Neuts % (Manual) Lymphocytes % (Manual) Monocytes % (Manual) Basophils % (Manual) Seg Neutrophils # Seg Neutrophils # Man Lymphocytes # (Manual) Monocytes # (Manual) Eosinophils # (Manual) Basophils # (Manual) PT INR D-Dimer ABG pH POC ABG pCO2 POC ABG pO2 ABG pO2 ABG HCO3 ABG O2 Saturation ABG Base Excess ABG Hemoglobin ABG Oxyhemoglobin ABG Potassium ABG Glucose Oxyhemoglobin Carboxyhemoglobin Sodium Potassium Chloride Carbon Dioxide BUN Creatinine Glucose POC Glucose 120 H 131 H 124 H Calcium Ferritin Total Bilirubin Alkaline Phosphatase Lactate Dehydrogenase Total Creatine Kinase CK-MB (CK-2) Rel Index Troponin T C-Reactive Protein Total Protein Albumin Prealbumin LDL Cholesterol Direct Arterial Blood Glucose Arterial Blood Ionized Calcium Urine WBC (Auto) 03/20/20 03/21/20 03/21/20 23:35 04:50 07:35 WBC 15.2 H RBC 3.39 L Hgb 9.4 L Hct 29.4 L MCV MCH RDW 17.6 H Plt Count 518 H Lymph % (Auto) Lymph # (Auto) [place] # (Auto) Seg Neutrophils % Seg Neuts % (Manual) 83.0 H Lymphocytes % (Manual) 10.0 L Monocytes % (Manual) Basophils % (Manual) 2.0 H Seg Neutrophils # Seg Neutrophils # Man 12.6 H Lymphocytes # (Manual) Monocytes # (Manual) Eosinophils # (Manual) Basophils # (Manual) 0.3 H PT INR D-Dimer ABG pH POC ABG pCO2 POC ABG pO2 ABG pO2 ABG HCO3 ABG O2 Saturation ABG Base Excess ABG Hemoglobin ABG Oxyhemoglobin ABG Potassium ABG Glucose Oxyhemoglobin Carboxyhemoglobin Sodium Potassium Chloride Carbon Dioxide BUN Creatinine Glucose POC Glucose 125 H 127 H Calcium Ferritin Total Bilirubin Alkaline Phosphatase Lactate Dehydrogenase Total Creatine Kinase CK-MB (CK-2) Rel Index Troponin T C-Reactive Protein Total Protein Albumin Prealbumin LDL Cholesterol Direct Arterial Blood Glucose Arterial Blood Ionized Calcium Urine WBC (Auto) 03/21/20 03/21/20 03/21/20 07:35 11:45 17:22 WBC RBC Hgb Hct MCV MCH RDW Plt Count Lymph % (Auto) Lymph # (Auto) [place] # (Auto) Seg Neutrophils % Seg Neuts % (Manual) Lymphocytes % (Manual) Monocytes % (Manual) Basophils % (Manual) Seg Neutrophils # Seg Neutrophils # Man Lymphocytes # (Manual) Monocytes # (Manual) Eosinophils # (Manual) Basophils # (Manual) PT INR D-Dimer ABG pH POC ABG pCO2 POC ABG pO2 ABG pO2 ABG HCO3 ABG O2 Saturation ABG Base Excess ABG Hemoglobin ABG Oxyhemoglobin ABG Potassium ABG Glucose Oxyhemoglobin Carboxyhemoglobin Sodium 136 L Potassium Chloride 97.7 L Carbon Dioxide 32 H BUN Creatinine < 0.2 L Glucose 103 H POC Glucose 126 H 120 H Calcium Ferritin Total Bilirubin Alkaline Phosphatase Lactate Dehydrogenase Total Creatine Kinase CK-MB (CK-2) Rel Index Troponin T C-Reactive Protein Total Protein Albumin Prealbumin LDL Cholesterol Direct Arterial Blood Glucose Arterial Blood Ionized Calcium Urine WBC (Auto) 03/22/20 03/22/20 03/22/20 05:09 06:34 06:34 WBC 17.5 H RBC 3.52 L Hgb 10.0 L Hct 30.7 L MCV MCH RDW 17.5 H Plt Count 499 H Lymph % (Auto) Lymph # (Auto) [place] # (Auto) Seg Neutrophils % Seg Neuts % (Manual) 80.0 H Lymphocytes % (Manual) 10.0 L Monocytes % (Manual) Basophils % (Manual) Seg Neutrophils # Seg Neutrophils # Man 14.0 H Lymphocytes # (Manual) Monocytes # (Manual) Eosinophils # (Manual) Basophils # (Manual) PT INR D-Dimer ABG pH POC ABG pCO2 POC ABG pO2 ABG pO2 ABG HCO3 ABG O2 Saturation ABG Base Excess ABG Hemoglobin ABG Oxyhemoglobin ABG Potassium ABG Glucose Oxyhemoglobin Carboxyhemoglobin Sodium Potassium Chloride 96.6 L Carbon Dioxide 38 H BUN Creatinine < 0.2 L Glucose 139 H POC Glucose 125 H Calcium Ferritin Total Bilirubin Alkaline Phosphatase Lactate Dehydrogenase Total Creatine Kinase CK-MB (CK-2) Rel Index Troponin T C-Reactive Protein Total Protein Albumin Prealbumin LDL Cholesterol Direct Arterial Blood Glucose Arterial Blood Ionized Calcium Urine WBC (Auto) 03/22/20 03/22/20 03/22/20 11:45 18:00 23:32 WBC RBC Hgb Hct MCV MCH RDW Plt Count Lymph % (Auto) Lymph # (Auto) [place] # (Auto) Seg Neutrophils % Seg Neuts % (Manual) Lymphocytes % (Manual) Monocytes % (Manual) Basophils % (Manual) Seg Neutrophils # Seg Neutrophils # Man Lymphocytes # (Manual) Monocytes # (Manual) Eosinophils # (Manual) Basophils # (Manual) PT INR D-Dimer ABG pH POC ABG pCO2 POC ABG pO2 ABG pO2 ABG HCO3 ABG O2 Saturation ABG Base Excess ABG Hemoglobin ABG Oxyhemoglobin ABG Potassium ABG Glucose Oxyhemoglobin Carboxyhemoglobin Sodium Potassium Chloride Carbon Dioxide BUN Creatinine Glucose POC Glucose 135 H 133 H Calcium Ferritin Total Bilirubin Alkaline Phosphatase Lactate Dehydrogenase Total Creatine Kinase CK-MB (CK-2) Rel Index Troponin T 0.113 H* C-Reactive Protein Total Protein Albumin Prealbumin LDL Cholesterol Direct Arterial Blood Glucose Arterial Blood Ionized Calcium Urine WBC (Auto) 03/23/20 03/23/20 03/23/20 01:47 06:21 07:57 WBC RBC Hgb Hct MCV MCH RDW Plt Count Lymph % (Auto) Lymph # (Auto) [place] # (Auto) Seg Neutrophils % Seg Neuts % (Manual) Lymphocytes % (Manual) Monocytes % (Manual) Basophils % (Manual) Seg Neutrophils # Seg Neutrophils # Man Lymphocytes # (Manual) Monocytes # (Manual) Eosinophils # (Manual) Basophils # (Manual) PT INR D-Dimer ABG pH POC ABG pCO2 POC ABG pO2 ABG pO2 ABG HCO3 ABG O2 Saturation ABG Base Excess ABG Hemoglobin ABG Oxyhemoglobin ABG Potassium ABG Glucose Oxyhemoglobin Carboxyhemoglobin Sodium Potassium Chloride Carbon Dioxide BUN Creatinine Glucose POC Glucose 130 H Calcium Ferritin Total Bilirubin Alkaline Phosphatase Lactate Dehydrogenase Total Creatine Kinase CK-MB (CK-2) Rel Index Troponin T 0.143 H* D 0.105 H* D C-Reactive Protein Total Protein Albumin Prealbumin LDL Cholesterol Direct Arterial Blood Glucose Arterial Blood Ionized Calcium Urine WBC (Auto) 03/23/20 03/24/20 03/24/20 12:02 05:33 07:15 WBC 18.0 H RBC Hgb 11.0 L Hct 34.0 L MCV MCH RDW 17.4 H Plt Count 520 H Lymph % (Auto) Lymph # (Auto) [place] # (Auto) Seg Neutrophils % Seg Neuts % (Manual) 88.0 H Lymphocytes % (Manual) 7.0 L Monocytes % (Manual) Basophils % (Manual) Seg Neutrophils # Seg Neutrophils # Man 15.8 H Lymphocytes # (Manual) Monocytes # (Manual) Eosinophils # (Manual) Basophils # (Manual) PT INR D-Dimer ABG pH POC ABG pCO2 POC ABG pO2 ABG pO2 ABG HCO3 ABG O2 Saturation ABG Base Excess ABG Hemoglobin ABG Oxyhemoglobin ABG Potassium ABG Glucose Oxyhemoglobin Carboxyhemoglobin Sodium Potassium Chloride Carbon Dioxide BUN Creatinine Glucose POC Glucose 137 H 112 H Calcium Ferritin Total Bilirubin Alkaline Phosphatase Lactate Dehydrogenase Total Creatine Kinase CK-MB (CK-2) Rel Index Troponin T C-Reactive Protein Total Protein Albumin Prealbumin LDL Cholesterol Direct Arterial Blood Glucose Arterial Blood Ionized Calcium Urine WBC (Auto) 03/24/20 03/24/20 03/24/20 07:15 11:22 23:30 WBC RBC Hgb Hct MCV MCH RDW Plt Count Lymph % (Auto) Lymph # (Auto) [place] # (Auto) Seg Neutrophils % Seg Neuts % (Manual) Lymphocytes % (Manual) Monocytes % (Manual) Basophils % (Manual) Seg Neutrophils # Seg Neutrophils # Man Lymphocytes # (Manual) Monocytes # (Manual) Eosinophils # (Manual) Basophils # (Manual) PT INR D-Dimer ABG pH POC ABG pCO2 POC ABG pO2 ABG pO2 ABG HCO3 ABG O2 Saturation ABG Base Excess ABG Hemoglobin ABG Oxyhemoglobin ABG Potassium ABG Glucose Oxyhemoglobin Carboxyhemoglobin Sodium Potassium Chloride 96.6 L Carbon Dioxide 38 H BUN Creatinine < 0.2 L Glucose 141 H POC Glucose 130 H 120 H Calcium Ferritin Total Bilirubin Alkaline Phosphatase Lactate Dehydrogenase Total Creatine Kinase CK-MB (CK-2) Rel Index Troponin T C-Reactive Protein Total Protein Albumin Prealbumin LDL Cholesterol Direct Arterial Blood Glucose Arterial Blood Ionized Calcium Urine WBC (Auto) 03/25/20 03/25/20 03/25/20 05:48 17:53 23:18 WBC RBC Hgb Hct MCV MCH RDW Plt Count Lymph % (Auto) Lymph # (Auto) [place] # (Auto) Seg Neutrophils % Seg Neuts % (Manual) Lymphocytes % (Manual) Monocytes % (Manual) Basophils % (Manual) Seg Neutrophils # Seg Neutrophils # Man Lymphocytes # (Manual) Monocytes # (Manual) Eosinophils # (Manual) Basophils # (Manual) PT INR D-Dimer ABG pH POC ABG pCO2 POC ABG pO2 ABG pO2 ABG HCO3 ABG O2 Saturation ABG Base Excess ABG Hemoglobin ABG Oxyhemoglobin ABG Potassium ABG Glucose Oxyhemoglobin Carboxyhemoglobin Sodium Potassium Chloride Carbon Dioxide BUN Creatinine Glucose POC Glucose 124 H 109 H 131 H Calcium Ferritin Total Bilirubin Alkaline Phosphatase Lactate Dehydrogenase Total Creatine Kinase CK-MB (CK-2) Rel Index Troponin T C-Reactive Protein Total Protein Albumin Prealbumin LDL Cholesterol Direct Arterial Blood Glucose Arterial Blood Ionized Calcium Urine WBC (Auto) 03/26/20 03/26/20 03/26/20 05:21 08:49 08:49 WBC 19.7 H RBC Hgb 10.7 L Hct 33.5 L MCV MCH 27 L RDW 17.1 H Plt Count 480 H Lymph % (Auto) 5.7 L Lymph # (Auto) 1.1 L [place] # (Auto) 1.2 H Seg Neutrophils % 87.7 H Seg Neuts % (Manual) Lymphocytes % (Manual) Monocytes % (Manual) Basophils % (Manual) Seg Neutrophils # 17.2 H Seg Neutrophils # Man Lymphocytes # (Manual) Monocytes # (Manual) Eosinophils # (Manual) Basophils # (Manual) PT INR D-Dimer ABG pH POC ABG pCO2 POC ABG pO2 ABG pO2 ABG HCO3 ABG O2 Saturation ABG Base Excess ABG Hemoglobin ABG Oxyhemoglobin ABG Potassium ABG Glucose Oxyhemoglobin Carboxyhemoglobin Sodium Potassium Chloride 97.2 L Carbon Dioxide 36 H BUN Creatinine < 0.2 L Glucose 127 H POC Glucose 116 H Calcium Ferritin Total Bilirubin Alkaline Phosphatase Lactate Dehydrogenase Total Creatine Kinase CK-MB (CK-2) Rel Index Troponin T C-Reactive Protein Total Protein Albumin Prealbumin LDL Cholesterol Direct Arterial Blood Glucose Arterial Blood Ionized Calcium Urine WBC (Auto) 03/26/20 03/26/20 03/26/20 11:38 18:44 23:06 WBC RBC Hgb Hct MCV MCH RDW Plt Count Lymph % (Auto) Lymph # (Auto) [place] # (Auto) Seg Neutrophils % Seg Neuts % (Manual) Lymphocytes % (Manual) Monocytes % (Manual) Basophils % (Manual) Seg Neutrophils # Seg Neutrophils # Man Lymphocytes # (Manual) Monocytes # (Manual) Eosinophils # (Manual) Basophils # (Manual) PT INR D-Dimer ABG pH POC ABG pCO2 POC ABG pO2 ABG pO2 ABG HCO3 ABG O2 Saturation ABG Base Excess ABG Hemoglobin ABG Oxyhemoglobin ABG Potassium ABG Glucose Oxyhemoglobin Carboxyhemoglobin Sodium Potassium Chloride Carbon Dioxide BUN Creatinine Glucose POC Glucose 120 H 111 H 134 H Calcium Ferritin Total Bilirubin Alkaline Phosphatase Lactate Dehydrogenase Total Creatine Kinase CK-MB (CK-2) Rel Index Troponin T C-Reactive Protein Total Protein Albumin Prealbumin LDL Cholesterol Direct Arterial Blood Glucose Arterial Blood Ionized Calcium Urine WBC (Auto) 03/27/20 03/27/20 03/27/20 05:41 05:59 05:59 WBC 18.6 H RBC Hgb 10.1 L Hct 31.4 L MCV MCH RDW 17.2 H Plt Count Lymph % (Auto) 8.0 L Lymph # (Auto) [place] # (Auto) 1.2 H Seg Neutrophils % 84.7 H Seg Neuts % (Manual) Lymphocytes % (Manual) Monocytes % (Manual) Basophils % (Manual) Seg Neutrophils # 15.8 H Seg Neutrophils # Man Lymphocytes # (Manual) Monocytes # (Manual) Eosinophils # (Manual) Basophils # (Manual) PT INR D-Dimer ABG pH POC ABG pCO2 POC ABG pO2 ABG pO2 ABG HCO3 ABG O2 Saturation ABG Base Excess ABG Hemoglobin ABG Oxyhemoglobin ABG Potassium ABG Glucose Oxyhemoglobin Carboxyhemoglobin Sodium Potassium Chloride Carbon Dioxide 34 H BUN Creatinine < 0.2 L Glucose 127 H POC Glucose 129 H Calcium Ferritin Total Bilirubin Alkaline Phosphatase Lactate Dehydrogenase Total Creatine Kinase CK-MB (CK-2) Rel Index Troponin T C-Reactive Protein Total Protein Albumin Prealbumin LDL Cholesterol Direct Arterial Blood Glucose Arterial Blood Ionized Calcium Urine WBC (Auto) 03/27/20 03/27/20 03/28/20 17:28 23:22 05:23 WBC RBC Hgb Hct MCV MCH RDW Plt Count Lymph % (Auto) Lymph # (Auto) [place] # (Auto) Seg Neutrophils % Seg Neuts % (Manual) Lymphocytes % (Manual) Monocytes % (Manual) Basophils % (Manual) Seg Neutrophils # Seg Neutrophils # Man Lymphocytes # (Manual) Monocytes # (Manual) Eosinophils # (Manual) Basophils # (Manual) PT INR D-Dimer ABG pH POC ABG pCO2 POC ABG pO2 ABG pO2 ABG HCO3 ABG O2 Saturation ABG Base Excess ABG Hemoglobin ABG Oxyhemoglobin ABG Potassium ABG Glucose Oxyhemoglobin Carboxyhemoglobin Sodium Potassium Chloride Carbon Dioxide BUN Creatinine Glucose POC Glucose 108 H 119 H 129 H Calcium Ferritin Total Bilirubin Alkaline Phosphatase Lactate Dehydrogenase Total Creatine Kinase CK-MB (CK-2) Rel Index Troponin T C-Reactive Protein Total Protein Albumin Prealbumin LDL Cholesterol Direct Arterial Blood Glucose Arterial Blood Ionized Calcium Urine WBC (Auto) 03/28/20 03/28/20 03/28/20 10:28 10:28 11:36 WBC 23.6 H RBC 3.62 L Hgb 10.0 L Hct 30.8 L MCV MCH RDW 16.4 H Plt Count Lymph % (Auto) Lymph # (Auto) [place] # (Auto) Seg Neutrophils % Seg Neuts % (Manual) 89.0 H Lymphocytes % (Manual) 5.0 L Monocytes % (Manual) Basophils % (Manual) Seg Neutrophils # Seg Neutrophils # Man 21.0 H Lymphocytes # (Manual) Monocytes # (Manual) 1.2 H Eosinophils # (Manual) Basophils # (Manual) 0.2 H PT INR D-Dimer ABG pH POC ABG pCO2 POC ABG pO2 ABG pO2 ABG HCO3 ABG O2 Saturation ABG Base Excess ABG Hemoglobin ABG Oxyhemoglobin ABG Potassium ABG Glucose Oxyhemoglobin Carboxyhemoglobin Sodium 134 L Potassium Chloride 94.2 L Carbon Dioxide 35 H BUN Creatinine < 0.2 L Glucose 134 H POC Glucose Calcium Ferritin Total Bilirubin Alkaline Phosphatase Lactate Dehydrogenase Total Creatine Kinase CK-MB (CK-2) Rel Index Troponin T C-Reactive Protein Total Protein Albumin Prealbumin LDL Cholesterol Direct Arterial Blood Glucose Arterial Blood Ionized Calcium Urine WBC (Auto) 39.0 H 03/28/20 03/28/20 03/28/20 11:51 17:08 17:17 WBC RBC Hgb Hct MCV MCH RDW Plt Count Lymph % (Auto) Lymph # (Auto) [place] # (Auto) Seg Neutrophils % Seg Neuts % (Manual) Lymphocytes % (Manual) Monocytes % (Manual) Basophils % (Manual) Seg Neutrophils # Seg Neutrophils # Man Lymphocytes # (Manual) Monocytes # (Manual) Eosinophils # (Manual) Basophils # (Manual) PT INR D-Dimer ABG pH POC ABG pCO2 POC ABG pO2 ABG pO2 ABG HCO3 ABG O2 Saturation ABG Base Excess ABG Hemoglobin ABG Oxyhemoglobin ABG Potassium ABG Glucose Oxyhemoglobin Carboxyhemoglobin Sodium Potassium Chloride Carbon Dioxide BUN Creatinine Glucose POC Glucose 123 H 112 H Calcium Ferritin Total Bilirubin Alkaline Phosphatase Lactate Dehydrogenase Total Creatine Kinase 47 L CK-MB (CK-2) Rel Index 4.6 H Troponin T 0.090 H C-Reactive Protein Total Protein Albumin Prealbumin LDL Cholesterol Direct Arterial Blood Glucose Arterial Blood Ionized Calcium Urine WBC (Auto) 03/28/20 03/29/20 03/29/20 23:22 05:22 10:58 WBC RBC Hgb Hct MCV MCH RDW Plt Count Lymph % (Auto) Lymph # (Auto) [place] # (Auto) Seg Neutrophils % Seg Neuts % (Manual) Lymphocytes % (Manual) Monocytes % (Manual) Basophils % (Manual) Seg Neutrophils # Seg Neutrophils # Man Lymphocytes # (Manual) Monocytes # (Manual) Eosinophils # (Manual) Basophils # (Manual) PT INR D-Dimer ABG pH POC ABG pCO2 POC ABG pO2 ABG pO2 ABG HCO3 ABG O2 Saturation ABG Base Excess ABG Hemoglobin ABG Oxyhemoglobin ABG Potassium ABG Glucose Oxyhemoglobin Carboxyhemoglobin Sodium Potassium Chloride Carbon Dioxide BUN Creatinine Glucose POC Glucose 122 H 116 H 133 H Calcium Ferritin Total Bilirubin Alkaline Phosphatase Lactate Dehydrogenase Total Creatine Kinase CK-MB (CK-2) Rel Index Troponin T C-Reactive Protein Total Protein Albumin Prealbumin LDL Cholesterol Direct Arterial Blood Glucose Arterial Blood Ionized Calcium Urine WBC (Auto) 03/29/20 03/29/20 03/30/20 17:18 23:14 04:57 WBC RBC Hgb Hct MCV MCH RDW Plt Count Lymph % (Auto) Lymph # (Auto) [place] # (Auto) Seg Neutrophils % Seg Neuts % (Manual) Lymphocytes % (Manual) Monocytes % (Manual) Basophils % (Manual) Seg Neutrophils # Seg Neutrophils # Man Lymphocytes # (Manual) Monocytes # (Manual) Eosinophils # (Manual) Basophils # (Manual) PT INR D-Dimer ABG pH POC ABG pCO2 POC ABG pO2 ABG pO2 ABG HCO3 ABG O2 Saturation ABG Base Excess ABG Hemoglobin ABG Oxyhemoglobin ABG Potassium ABG Glucose Oxyhemoglobin Carboxyhemoglobin Sodium Potassium Chloride Carbon Dioxide BUN Creatinine Glucose POC Glucose 111 H 114 H 130 H Calcium Ferritin Total Bilirubin Alkaline Phosphatase Lactate Dehydrogenase Total Creatine Kinase CK-MB (CK-2) Rel Index Troponin T C-Reactive Protein Total Protein Albumin Prealbumin LDL Cholesterol Direct Arterial Blood Glucose Arterial Blood Ionized Calcium Urine WBC (Auto) 03/30/20 03/30/20 03/30/20 11:38 14:47 14:47 WBC 19.9 H RBC Hgb 10.9 L Hct 34.4 L MCV MCH 27 L RDW 16.5 H Plt Count 441 H Lymph % (Auto) 6.4 L Lymph # (Auto) [place] # (Auto) 1.4 H Seg Neutrophils % 86.1 H Seg Neuts % (Manual) Lymphocytes % (Manual) Monocytes % (Manual) Basophils % (Manual) Seg Neutrophils # 17.1 H Seg Neutrophils # Man Lymphocytes # (Manual) Monocytes # (Manual) Eosinophils # (Manual) Basophils # (Manual) PT INR D-Dimer ABG pH POC ABG pCO2 POC ABG pO2 ABG pO2 ABG HCO3 ABG O2 Saturation ABG Base Excess ABG Hemoglobin ABG Oxyhemoglobin ABG Potassium ABG Glucose Oxyhemoglobin Carboxyhemoglobin Sodium 133 L Potassium Chloride 94.6 L Carbon Dioxide 33 H BUN Creatinine < 0.2 L Glucose 194 H POC Glucose 139 H Calcium Ferritin Total Bilirubin Alkaline Phosphatase Lactate Dehydrogenase Total Creatine Kinase CK-MB (CK-2) Rel Index Troponin T C-Reactive Protein Total Protein Albumin 2.8 L Prealbumin LDL Cholesterol Direct Arterial Blood Glucose Arterial Blood Ionized Calcium Urine WBC (Auto) 03/30/20 03/31/20 03/31/20 17:07 05:02 15:21 WBC RBC Hgb Hct MCV MCH RDW Plt Count Lymph % (Auto) Lymph # (Auto) [place] # (Auto) Seg Neutrophils % Seg Neuts % (Manual) Lymphocytes % (Manual) Monocytes % (Manual) Basophils % (Manual) Seg Neutrophils # Seg Neutrophils # Man Lymphocytes # (Manual) Monocytes # (Manual) Eosinophils # (Manual) Basophils # (Manual) PT INR D-Dimer ABG pH POC ABG pCO2 POC ABG pO2 ABG pO2 ABG HCO3 ABG O2 Saturation ABG Base Excess ABG Hemoglobin ABG Oxyhemoglobin ABG Potassium ABG Glucose Oxyhemoglobin Carboxyhemoglobin Sodium Potassium Chloride Carbon Dioxide BUN Creatinine Glucose POC Glucose 163 H 108 H 110 H Calcium Ferritin Total Bilirubin Alkaline Phosphatase Lactate Dehydrogenase Total Creatine Kinase CK-MB (CK-2) Rel Index Troponin T C-Reactive Protein Total Protein Albumin Prealbumin LDL Cholesterol Direct Arterial Blood Glucose Arterial Blood Ionized Calcium Urine WBC (Auto) 03/31/20 03/31/20 04/01/20 17:58 23:19 05:09 WBC RBC Hgb Hct MCV MCH RDW Plt Count Lymph % (Auto) Lymph # (Auto) [place] # (Auto) Seg Neutrophils % Seg Neuts % (Manual) Lymphocytes % (Manual) Monocytes % (Manual) Basophils % (Manual) Seg Neutrophils # Seg Neutrophils # Man Lymphocytes # (Manual) Monocytes # (Manual) Eosinophils # (Manual) Basophils # (Manual) PT INR D-Dimer ABG pH POC ABG pCO2 POC ABG pO2 ABG pO2 ABG HCO3 ABG O2 Saturation ABG Base Excess ABG Hemoglobin ABG Oxyhemoglobin ABG Potassium ABG Glucose Oxyhemoglobin Carboxyhemoglobin Sodium Potassium Chloride Carbon Dioxide BUN Creatinine Glucose POC Glucose 110 H 131 H 124 H Calcium Ferritin Total Bilirubin Alkaline Phosphatase Lactate Dehydrogenase Total Creatine Kinase CK-MB (CK-2) Rel Index Troponin T C-Reactive Protein Total Protein Albumin Prealbumin LDL Cholesterol Direct Arterial Blood Glucose Arterial Blood Ionized Calcium Urine WBC (Auto) 04/01/20 04/01/20 04/01/20 11:50 17:01 23:21 WBC RBC Hgb Hct MCV MCH RDW Plt Count Lymph % (Auto) Lymph # (Auto) [place] # (Auto) Seg Neutrophils % Seg Neuts % (Manual) Lymphocytes % (Manual) Monocytes % (Manual) Basophils % (Manual) Seg Neutrophils # Seg Neutrophils # Man Lymphocytes # (Manual) Monocytes # (Manual) Eosinophils # (Manual) Basophils # (Manual) PT INR D-Dimer ABG pH POC ABG pCO2 POC ABG pO2 ABG pO2 ABG HCO3 ABG O2 Saturation ABG Base Excess ABG Hemoglobin ABG Oxyhemoglobin ABG Potassium ABG Glucose Oxyhemoglobin Carboxyhemoglobin Sodium Potassium Chloride Carbon Dioxide BUN Creatinine Glucose POC Glucose 136 H 115 H 124 H Calcium Ferritin Total Bilirubin Alkaline Phosphatase Lactate Dehydrogenase Total Creatine Kinase CK-MB (CK-2) Rel Index Troponin T C-Reactive Protein Total Protein Albumin Prealbumin LDL Cholesterol Direct Arterial Blood Glucose Arterial Blood Ionized Calcium Urine WBC (Auto) 04/02/20 04/02/20 04/02/20 05:27 11:58 17:58 WBC RBC Hgb Hct MCV MCH RDW Plt Count Lymph % (Auto) Lymph # (Auto) [place] # (Auto) Seg Neutrophils % Seg Neuts % (Manual) Lymphocytes % (Manual) Monocytes % (Manual) Basophils % (Manual) Seg Neutrophils # Seg Neutrophils # Man Lymphocytes # (Manual) Monocytes # (Manual) Eosinophils # (Manual) Basophils # (Manual) PT INR D-Dimer ABG pH POC ABG pCO2 POC ABG pO2 ABG pO2 ABG HCO3 ABG O2 Saturation ABG Base Excess ABG Hemoglobin ABG Oxyhemoglobin ABG Potassium ABG Glucose Oxyhemoglobin Carboxyhemoglobin Sodium Potassium Chloride Carbon Dioxide BUN Creatinine Glucose POC Glucose 117 H 133 H 122 H Calcium Ferritin Total Bilirubin Alkaline Phosphatase Lactate Dehydrogenase Total Creatine Kinase CK-MB (CK-2) Rel Index Troponin T C-Reactive Protein Total Protein Albumin Prealbumin LDL Cholesterol Direct Arterial Blood Glucose Arterial Blood Ionized Calcium Urine WBC (Auto) 04/02/20 04/03/20 04/03/20 23:12 05:11 11:11 WBC RBC Hgb Hct MCV MCH RDW Plt Count Lymph % (Auto) Lymph # (Auto) [place] # (Auto) Seg Neutrophils % Seg Neuts % (Manual) Lymphocytes % (Manual) Monocytes % (Manual) Basophils % (Manual) Seg Neutrophils # Seg Neutrophils # Man Lymphocytes # (Manual) Monocytes # (Manual) Eosinophils # (Manual) Basophils # (Manual) PT INR D-Dimer ABG pH POC ABG pCO2 POC ABG pO2 ABG pO2 ABG HCO3 ABG O2 Saturation ABG Base Excess ABG Hemoglobin ABG Oxyhemoglobin ABG Potassium ABG Glucose Oxyhemoglobin Carboxyhemoglobin Sodium Potassium Chloride Carbon Dioxide BUN Creatinine Glucose POC Glucose 130 H 139 H 136 H Calcium Ferritin Total Bilirubin Alkaline Phosphatase Lactate Dehydrogenase Total Creatine Kinase CK-MB (CK-2) Rel Index Troponin T C-Reactive Protein Total Protein Albumin Prealbumin LDL Cholesterol Direct Arterial Blood Glucose Arterial Blood Ionized Calcium Urine WBC (Auto) 04/03/20 04/03/20 04/04/20 16:51 23:25 05:29 WBC RBC Hgb Hct MCV MCH RDW Plt Count Lymph % (Auto) Lymph # (Auto) [place] # (Auto) Seg Neutrophils % Seg Neuts % (Manual) Lymphocytes % (Manual) Monocytes % (Manual) Basophils % (Manual) Seg Neutrophils # Seg Neutrophils # Man Lymphocytes # (Manual) Monocytes # (Manual) Eosinophils # (Manual) Basophils # (Manual) PT INR D-Dimer ABG pH POC ABG pCO2 POC ABG pO2 ABG pO2 ABG HCO3 ABG O2 Saturation ABG Base Excess ABG Hemoglobin ABG Oxyhemoglobin ABG Potassium ABG Glucose Oxyhemoglobin Carboxyhemoglobin Sodium Potassium Chloride Carbon Dioxide BUN Creatinine Glucose POC Glucose 118 H 111 H 126 H Calcium Ferritin Total Bilirubin Alkaline Phosphatase Lactate Dehydrogenase Total Creatine Kinase CK-MB (CK-2) Rel Index Troponin T C-Reactive Protein Total Protein Albumin Prealbumin LDL Cholesterol Direct Arterial Blood Glucose Arterial Blood Ionized Calcium Urine WBC (Auto) 04/04/20 04/04/20 04/04/20 11:47 17:41 23:05 WBC RBC Hgb Hct MCV MCH RDW Plt Count Lymph % (Auto) Lymph # (Auto) [place] # (Auto) Seg Neutrophils % Seg Neuts % (Manual) Lymphocytes % (Manual) Monocytes % (Manual) Basophils % (Manual) Seg Neutrophils # Seg Neutrophils # Man Lymphocytes # (Manual) Monocytes # (Manual) Eosinophils # (Manual) Basophils # (Manual) PT INR D-Dimer ABG pH POC ABG pCO2 POC ABG pO2 ABG pO2 ABG HCO3 ABG O2 Saturation ABG Base Excess ABG Hemoglobin ABG Oxyhemoglobin ABG Potassium ABG Glucose Oxyhemoglobin Carboxyhemoglobin Sodium Potassium Chloride Carbon Dioxide BUN Creatinine Glucose POC Glucose 123 H 120 H 119 H Calcium Ferritin Total Bilirubin Alkaline Phosphatase Lactate Dehydrogenase Total Creatine Kinase CK-MB (CK-2) Rel Index Troponin T C-Reactive Protein Total Protein Albumin Prealbumin LDL Cholesterol Direct Arterial Blood Glucose Arterial Blood Ionized Calcium Urine WBC (Auto) 04/05/20 04/05/20 04/05/20 05:14 12:16 18:48 WBC RBC Hgb Hct MCV MCH RDW Plt Count Lymph % (Auto) Lymph # (Auto) Emery # (Auto) Seg Neutrophils % Seg Neuts % (Manual) Lymphocytes % (Manual) Monocytes % (Manual) Basophils % (Manual) Seg Neutrophils # Seg Neutrophils # Man Lymphocytes # (Manual) Monocytes # (Manual) Eosinophils # (Manual) Basophils # (Manual) PT INR D-Dimer ABG pH POC ABG pCO2 POC ABG pO2 ABG pO2 ABG HCO3 ABG O2 Saturation ABG Base Excess ABG Hemoglobin ABG Oxyhemoglobin ABG Potassium ABG Glucose Oxyhemoglobin Carboxyhemoglobin Sodium Potassium Chloride Carbon Dioxide BUN Creatinine Glucose POC Glucose 123 H 148 H 106 H Calcium Ferritin Total Bilirubin Alkaline Phosphatase Lactate Dehydrogenase Total Creatine Kinase CK-MB (CK-2) Rel Index Troponin T C-Reactive Protein Total Protein Albumin Prealbumin LDL Cholesterol Direct Arterial Blood Glucose Arterial Blood Ionized Calcium Urine WBC (Auto) 04/06/20 04/06/20 04/06/20 00:47 03:26 08:24 WBC RBC Hgb Hct MCV MCH RDW Plt Count Lymph % (Auto) Lymph # (Auto) Emery # (Auto) Seg Neutrophils % Seg Neuts % (Manual) Lymphocytes % (Manual) Monocytes % (Manual) Basophils % (Manual) Seg Neutrophils # Seg Neutrophils # Man Lymphocytes # (Manual) Monocytes # (Manual) Eosinophils # (Manual) Basophils # (Manual) PT INR D-Dimer ABG pH POC ABG pCO2 POC ABG pO2 ABG pO2 ABG HCO3 ABG O2 Saturation ABG Base Excess ABG Hemoglobin ABG Oxyhemoglobin ABG Potassium ABG Glucose Oxyhemoglobin Carboxyhemoglobin Sodium Potassium Chloride Carbon Dioxide BUN Creatinine Glucose POC Glucose 129 H 134 H 131 H Calcium Ferritin Total Bilirubin Alkaline Phosphatase Lactate Dehydrogenase Total Creatine Kinase CK-MB (CK-2) Rel Index Troponin T C-Reactive Protein Total Protein Albumin Prealbumin LDL Cholesterol Direct Arterial Blood Glucose Arterial Blood Ionized Calcium Urine WBC (Auto) 04/06/20 04/06/20 04/06/20 11:16 16:27 23:01 WBC RBC Hgb Hct MCV MCH RDW Plt Count Lymph % (Auto) Lymph # (Auto) Emery # (Auto) Seg Neutrophils % Seg Neuts % (Manual) Lymphocytes % (Manual) Monocytes % (Manual) Basophils % (Manual) Seg Neutrophils # Seg Neutrophils # Man Lymphocytes # (Manual) Monocytes # (Manual) Eosinophils # (Manual) Basophils # (Manual) PT INR D-Dimer ABG pH POC ABG pCO2 POC ABG pO2 ABG pO2 ABG HCO3 ABG O2 Saturation ABG Base Excess ABG Hemoglobin ABG Oxyhemoglobin ABG Potassium ABG Glucose Oxyhemoglobin Carboxyhemoglobin Sodium Potassium Chloride Carbon Dioxide BUN Creatinine Glucose POC Glucose 131 H 107 H 125 H Calcium Ferritin Total Bilirubin Alkaline Phosphatase Lactate Dehydrogenase Total Creatine Kinase CK-MB (CK-2) Rel Index Troponin T C-Reactive Protein Total Protein Albumin Prealbumin LDL Cholesterol Direct Arterial Blood Glucose Arterial Blood Ionized Calcium Urine WBC (Auto) 04/07/20 04/07/20 04/07/20 05:24 12:41 17:40 WBC RBC Hgb Hct MCV MCH RDW Plt Count Lymph % (Auto) Lymph # (Auto) Emery # (Auto) Seg Neutrophils % Seg Neuts % (Manual) Lymphocytes % (Manual) Monocytes % (Manual) Basophils % (Manual) Seg Neutrophils # Seg Neutrophils # Man Lymphocytes # (Manual) Monocytes # (Manual) Eosinophils # (Manual) Basophils # (Manual) PT INR D-Dimer ABG pH POC ABG pCO2 POC ABG pO2 ABG pO2 ABG HCO3 ABG O2 Saturation ABG Base Excess ABG Hemoglobin ABG Oxyhemoglobin ABG Potassium ABG Glucose Oxyhemoglobin Carboxyhemoglobin Sodium Potassium Chloride Carbon Dioxide BUN Creatinine Glucose POC Glucose 125 H 145 H 123 H Calcium Ferritin Total Bilirubin Alkaline Phosphatase Lactate Dehydrogenase Total Creatine Kinase CK-MB (CK-2) Rel Index Troponin T C-Reactive Protein Total Protein Albumin Prealbumin LDL Cholesterol Direct Arterial Blood Glucose Arterial Blood Ionized Calcium Urine WBC (Auto) 04/07/20 04/08/20 04/08/20 23:22 05:40 11:29 WBC RBC Hgb Hct MCV MCH RDW Plt Count Lymph % (Auto) Lymph # (Auto) Emery # (Auto) Seg Neutrophils % Seg Neuts % (Manual) Lymphocytes % (Manual) Monocytes % (Manual) Basophils % (Manual) Seg Neutrophils # Seg Neutrophils # Man Lymphocytes # (Manual) Monocytes # (Manual) Eosinophils # (Manual) Basophils # (Manual) PT INR D-Dimer ABG pH POC ABG pCO2 POC ABG pO2 ABG pO2 ABG HCO3 ABG O2 Saturation ABG Base Excess ABG Hemoglobin ABG Oxyhemoglobin ABG Potassium ABG Glucose Oxyhemoglobin Carboxyhemoglobin Sodium Potassium Chloride Carbon Dioxide BUN Creatinine Glucose POC Glucose 133 H 125 H 116 H Calcium Ferritin Total Bilirubin Alkaline Phosphatase Lactate Dehydrogenase Total Creatine Kinase CK-MB (CK-2) Rel Index Troponin T C-Reactive Protein Total Protein Albumin Prealbumin LDL Cholesterol Direct Arterial Blood Glucose Arterial Blood Ionized Calcium Urine WBC (Auto) 04/08/20 04/09/20 04/09/20 17:43 05:47 12:22 WBC RBC Hgb Hct MCV MCH RDW Plt Count Lymph % (Auto) Lymph # (Auto) Emery # (Auto) Seg Neutrophils % Seg Neuts % (Manual) Lymphocytes % (Manual) Monocytes % (Manual) Basophils % (Manual) Seg Neutrophils # Seg Neutrophils # Man Lymphocytes # (Manual) Monocytes # (Manual) Eosinophils # (Manual) Basophils # (Manual) PT INR D-Dimer ABG pH POC ABG pCO2 POC ABG pO2 ABG pO2 ABG HCO3 ABG O2 Saturation ABG Base Excess ABG Hemoglobin ABG Oxyhemoglobin ABG Potassium ABG Glucose Oxyhemoglobin Carboxyhemoglobin Sodium Potassium Chloride Carbon Dioxide BUN Creatinine Glucose POC Glucose 123 H 108 H 116 H Calcium Ferritin Total Bilirubin Alkaline Phosphatase Lactate Dehydrogenase Total Creatine Kinase CK-MB (CK-2) Rel Index Troponin T C-Reactive Protein Total Protein Albumin Prealbumin LDL Cholesterol Direct Arterial Blood Glucose Arterial Blood Ionized Calcium Urine WBC (Auto) 04/09/20 04/09/20 04/10/20 17:24 23:52 06:10 WBC RBC Hgb Hct MCV MCH RDW Plt Count Lymph % (Auto) Lymph # (Auto) Emery # (Auto) Seg Neutrophils % Seg Neuts % (Manual) Lymphocytes % (Manual) Monocytes % (Manual) Basophils % (Manual) Seg Neutrophils # Seg Neutrophils # Man Lymphocytes # (Manual) Monocytes # (Manual) Eosinophils # (Manual) Basophils # (Manual) PT INR D-Dimer ABG pH POC ABG pCO2 POC ABG pO2 ABG pO2 ABG HCO3 ABG O2 Saturation ABG Base Excess ABG Hemoglobin ABG Oxyhemoglobin ABG Potassium ABG Glucose Oxyhemoglobin Carboxyhemoglobin Sodium Potassium Chloride Carbon Dioxide BUN Creatinine Glucose POC Glucose 108 H 126 H 122 H Calcium Ferritin Total Bilirubin Alkaline Phosphatase Lactate Dehydrogenase Total Creatine Kinase CK-MB (CK-2) Rel Index Troponin T C-Reactive Protein Total Protein Albumin Prealbumin LDL Cholesterol Direct Arterial Blood Glucose Arterial Blood Ionized Calcium Urine WBC (Auto) 04/10/20 04/10/20 04/10/20 11:27 18:11 23:24 WBC RBC Hgb Hct MCV MCH RDW Plt Count Lymph % (Auto) Lymph # (Auto) Emery # (Auto) Seg Neutrophils % Seg Neuts % (Manual) Lymphocytes % (Manual) Monocytes % (Manual) Basophils % (Manual) Seg Neutrophils # Seg Neutrophils # Man Lymphocytes # (Manual) Monocytes # (Manual) Eosinophils # (Manual) Basophils # (Manual) PT INR D-Dimer ABG pH POC ABG pCO2 POC ABG pO2 ABG pO2 ABG HCO3 ABG O2 Saturation ABG Base Excess ABG Hemoglobin ABG Oxyhemoglobin ABG Potassium ABG Glucose Oxyhemoglobin Carboxyhemoglobin Sodium Potassium Chloride Carbon Dioxide BUN Creatinine Glucose POC Glucose 129 H 125 H 107 H Calcium Ferritin Total Bilirubin Alkaline Phosphatase Lactate Dehydrogenase Total Creatine Kinase CK-MB (CK-2) Rel Index Troponin T C-Reactive Protein Total Protein Albumin Prealbumin LDL Cholesterol Direct Arterial Blood Glucose Arterial Blood Ionized Calcium Urine WBC (Auto) 04/11/20 04/11/20 04/11/20 05:28 11:46 23:49 WBC RBC Hgb Hct MCV MCH RDW Plt Count Lymph % (Auto) Lymph # (Auto) Emery # (Auto) Seg Neutrophils % Seg Neuts % (Manual) Lymphocytes % (Manual) Monocytes % (Manual) Basophils % (Manual) Seg Neutrophils # Seg Neutrophils # Man Lymphocytes # (Manual) Monocytes # (Manual) Eosinophils # (Manual) Basophils # (Manual) PT INR D-Dimer ABG pH POC ABG pCO2 POC ABG pO2 ABG pO2 ABG HCO3 ABG O2 Saturation ABG Base Excess ABG Hemoglobin ABG Oxyhemoglobin ABG Potassium ABG Glucose Oxyhemoglobin Carboxyhemoglobin Sodium Potassium Chloride Carbon Dioxide BUN Creatinine Glucose POC Glucose 122 H 122 H 116 H Calcium Ferritin Total Bilirubin Alkaline Phosphatase Lactate Dehydrogenase Total Creatine Kinase CK-MB (CK-2) Rel Index Troponin T C-Reactive Protein Total Protein Albumin Prealbumin LDL Cholesterol Direct Arterial Blood Glucose Arterial Blood Ionized Calcium Urine WBC (Auto) 04/12/20 04/12/20 04/12/20 09:07 09:07 11:39 WBC 13.1 H RBC 3.59 L Hgb 9.5 L Hct 29.8 L MCV 83 L MCH 26 L RDW 16.6 H Plt Count 591 H Lymph % (Auto) Lymph # (Auto) Emery # (Auto) Seg Neutrophils % Seg Neuts % (Manual) 86.0 H Lymphocytes % (Manual) 7.0 L Monocytes % (Manual) Basophils % (Manual) Seg Neutrophils # Seg Neutrophils # Man 11.3 H Lymphocytes # (Manual) 0.9 L Monocytes # (Manual) Eosinophils # (Manual) Basophils # (Manual) PT INR D-Dimer ABG pH POC ABG pCO2 POC ABG pO2 ABG pO2 ABG HCO3 ABG O2 Saturation ABG Base Excess ABG Hemoglobin ABG Oxyhemoglobin ABG Potassium ABG Glucose Oxyhemoglobin Carboxyhemoglobin Sodium Potassium Chloride Carbon Dioxide 36 H BUN Creatinine < 0.2 L Glucose 132 H POC Glucose 136 H Calcium Ferritin Total Bilirubin Alkaline Phosphatase Lactate Dehydrogenase Total Creatine Kinase CK-MB (CK-2) Rel Index Troponin T C-Reactive Protein Total Protein Albumin 2.7 L Prealbumin LDL Cholesterol Direct Arterial Blood Glucose Arterial Blood Ionized Calcium Urine WBC (Auto) 04/12/20 04/12/20 04/13/20 18:13 23:07 05:45 WBC RBC Hgb Hct MCV MCH RDW Plt Count Lymph % (Auto) Lymph # (Auto) Emery # (Auto) Seg Neutrophils % Seg Neuts % (Manual) Lymphocytes % (Manual) Monocytes % (Manual) Basophils % (Manual) Seg Neutrophils # Seg Neutrophils # Man Lymphocytes # (Manual) Monocytes # (Manual) Eosinophils # (Manual) Basophils # (Manual) PT INR D-Dimer ABG pH POC ABG pCO2 POC ABG pO2 ABG pO2 ABG HCO3 ABG O2 Saturation ABG Base Excess ABG Hemoglobin ABG Oxyhemoglobin ABG Potassium ABG Glucose Oxyhemoglobin Carboxyhemoglobin Sodium Potassium Chloride Carbon Dioxide BUN Creatinine Glucose POC Glucose 107 H 106 H 125 H Calcium Ferritin Total Bilirubin Alkaline Phosphatase Lactate Dehydrogenase Total Creatine Kinase CK-MB (CK-2) Rel Index Troponin T C-Reactive Protein Total Protein Albumin Prealbumin LDL Cholesterol Direct Arterial Blood Glucose Arterial Blood Ionized Calcium Urine WBC (Auto) 04/13/20 04/13/20 04/13/20 11:18 17:56 23:33 WBC RBC Hgb Hct MCV MCH RDW Plt Count Lymph % (Auto) Lymph # (Auto) Emery # (Auto) Seg Neutrophils % Seg Neuts % (Manual) Lymphocytes % (Manual) Monocytes % (Manual) Basophils % (Manual) Seg Neutrophils # Seg Neutrophils # Man Lymphocytes # (Manual) Monocytes # (Manual) Eosinophils # (Manual) Basophils # (Manual) PT INR D-Dimer ABG pH POC ABG pCO2 POC ABG pO2 ABG pO2 ABG HCO3 ABG O2 Saturation ABG Base Excess ABG Hemoglobin ABG Oxyhemoglobin ABG Potassium ABG Glucose Oxyhemoglobin Carboxyhemoglobin Sodium Potassium Chloride Carbon Dioxide BUN Creatinine Glucose POC Glucose 133 H 110 H 114 H Calcium Ferritin Total Bilirubin Alkaline Phosphatase Lactate Dehydrogenase Total Creatine Kinase CK-MB (CK-2) Rel Index Troponin T C-Reactive Protein Total Protein Albumin Prealbumin LDL Cholesterol Direct Arterial Blood Glucose Arterial Blood Ionized Calcium Urine WBC (Auto) 04/14/20 04/14/20 05:58 11:45 WBC RBC Hgb Hct MCV MCH RDW Plt Count Lymph % (Auto) Lymph # (Auto) Emery # (Auto) Seg Neutrophils % Seg Neuts % (Manual) Lymphocytes % (Manual) Monocytes % (Manual) Basophils % (Manual) Seg Neutrophils # Seg Neutrophils # Man Lymphocytes # (Manual) Monocytes # (Manual) Eosinophils # (Manual) Basophils # (Manual) PT INR D-Dimer ABG pH POC ABG pCO2 POC ABG pO2 ABG pO2 ABG HCO3 ABG O2 Saturation ABG Base Excess ABG Hemoglobin ABG Oxyhemoglobin ABG Potassium ABG Glucose Oxyhemoglobin Carboxyhemoglobin Sodium Potassium Chloride Carbon Dioxide BUN Creatinine Glucose POC Glucose 115 H 122 H Calcium Ferritin Total Bilirubin Alkaline Phosphatase Lactate Dehydrogenase Total Creatine Kinase CK-MB (CK-2) Rel Index Troponin T C-Reactive Protein Total Protein Albumin Prealbumin LDL Cholesterol Direct Arterial Blood Glucose Arterial Blood Ionized Calcium Urine WBC (Auto) Allied health notes reviewed: RT
[2020-04-14] MEDS: ENOXAPARIN 40 MG/0.4 ML INJ SUB-Q SCH (22:18)
[2020-04-14] MEDS: SENNOSIDES 8.6 MG TAB PO SCH (22:20)
[2020-04-14] MEDS: ZOLPIDEM 5 MG TAB PO PRN (22:24)
[2020-04-14] MEDS: ACETAMINOPHEN 325 MG TAB PO PRN (22:25)
[2020-04-15] MEDS: MORPHINE 2 MG/1 ML INJ IV PRN ×4 (02:24→19:43)
[2020-04-15] MEDS: GLYCOPYRROLATE 2 MG TAB PO SCH ×3 (08:38→19:43)
--- NOTE | 2020-04-15 08:54 | XRay Report ---
CHEST 1 VIEW 04/15/2020 7:39 AM INDICATION / CLINICAL INFORMATION: F/U[respiratory failure/tracheostomy/on vent]. COMPARISON: 03/28/2020 FINDINGS: SUPPORT DEVICES: Tracheostomy tube appears unchanged HEART / MEDIASTINUM: Unchanged LUNGS / PLEURA: There are mild basilar airspace opacities. No pneumothorax. ADDITIONAL FINDINGS: No significant additional findings. IMPRESSION: 1. There are mild basilar airspace opacities which likely represent atelectasis but could represent a n evolving pneumonia. Signer Name: Ruddy Arshad MD Signed: 04/15/2020 8:50 AM Workstation Name: [id number]
[2020-04-15] MEDS: PREGABALIN 75 MG CAP PO SCH ×2 (09:19→21:50)
[2020-04-15] MEDS: LANSOPRAZOLE 30 MG SOLUTAB FEEDTUBE SCH (09:19)
[2020-04-15] MEDS: LIDOCAINE 5% 1 EACH PATCH TD SCH (09:19)
[2020-04-15] MEDS: DOCUSATE SODIUM 100 MG/10 ML ORAL LIQD FEEDTUBE SCH ×2 (09:19→21:51)
[2020-04-15] MEDS: TAMSULOSIN 0.4 MG CAP PO SCH (09:19)
[2020-04-15] MEDS: BACLOFEN 10 MG TAB PO SCH ×2 (09:19→21:51)
[2020-04-15] MEDS: METOPROLOL TARTRATE 25 MG TAB PO SCH ×2 (09:20→22:41)
[2020-04-15] MEDS: SODIUM HYPOCHLORITE, DAKIN'S 1/2 STRENGTH (0.25%) 473 ML TOPICAL SOLN TP SCH ×2 (09:20→21:52)
--- NOTE | 2020-04-15 11:38 | Progress Note ---
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 Respiratory Failure s/p trach Severe Sepsis with Shock Bilateral Pneumonia (Possible aspiration) History of ALS on Trilogy Oropharyngeal Dysphagia s/p PEG Acute toxic metabolic encephalopathy-resolved Elevated D-dimer Elevated troponin possibly type 2 ischemia Leukocytsois Continue to trend WCC and temperature curve Continue Ambien for sleep at night Continue all supportive care Discharge planning is ongoing- discussed with case management, she is waiting for his significant other and his and the state program that provides attendant care in his home to make final decisions as to services that he can have to support him and his partner at home. - continue daytime PSV as tolerated -He is not tolerating ATP trials and is vent dependant. - ABG, CXR as clinically indicated - continue Robinul & scopolamine for secretion control - Keep K at 4, Mg at 2 and Phos at 2.5 to optimize respiratory muscle function - wound care per RN/WCN, off loading, frequent turning, mobility per facility protocol - wean supplemental oxygen for target O2 sats > 92% - VAP bundle addressed, aspiration precautions, HOB >40 - continue lung protective strategies - continue bronchodilators with pulmonary hygiene per RT - s/p empiric anti-infectives per ID recs (Rocephin and Zithromax) - enteral nutrition at goal rate as tolerated - accuchecks with glycemic control per SSI (While critically ill target blood glucose of 140-180 mg/dL; avoid hypoglycemia) - avoid nephrotoxins, renal dose all medications - avoid benzodiazepines, reduce the possibility of delirium - prn analgesia per CPOT score - Maintenance of sleep-wake cycle, avoid delirium -Continue stress ulcer and VTE prophylaxis (Famotidine and Enoxaparin) -Reardon in place for urinary retention and sacral decubitus ulcer - Monitor hemodynamics closely - continue other care per attending / other consultants CONDITION: FAIR PROGNOSIS: GUARDED CODE STATUS: FULL CODE Subjective Date of service: 04/15/20 Principal diagnosis: Ac on Ch Hypercapnic & hypoxemic Resp Failure; Severe Sepsis; Jamar PNA; ALS Interval history: Patient is seen today for: Acute on Chronic Hypercapnic & hypoxemic Respiratory Failure; Severe Sepsis with Shock; Bilateral Pneumonia (Possible aspiration); History of ALS on Trilogy; Acute toxic metabolic encephalopathy Seen and examined at bedside; 24hour events reviewed; nursing and respiratory care staff consulted; no adverse overnight events reported to me; resting in bed; remains on MVS; s/p trach and PEG Tolerating tube feedings. Tolerating PSV at the bedside, full support at night No fevers,no vomiting. Slept well last night. Phonates around the trach- wants to go home No new issues Objective Vital Signs - 12hr 04/15/20 04/15/20 04/15/20 00:00 00:16 00:31 Temperature 98.8 F Pulse Rate 94 H 92 H 88 Pulse Rate [ 93 H From Monitor] Respiratory 13 14 Rate Blood Pressure 100/67 94/66 O2 Sat by Pulse 100 100 98 Oximetry O2 Sat by Pulse 97 Oximetry [ Assessment] 04/15/20 04/15/20 04/15/20 01:00 01:31 02:00 Temperature Pulse Rate 91 H 90 100 H Pulse Rate [ From Monitor] Respiratory 13 10 L 14 Rate Blood Pressure 96/61 96/61 94/62 O2 Sat by Pulse 99 91 Oximetry O2 Sat by Pulse Oximetry [ Assessment] 04/15/20 04/15/20 04/15/20 02:24 02:31 03:00 Temperature Pulse Rate 99 H 101 H Pulse Rate [ From Monitor] Respiratory 19 20 17 Rate Blood Pressure 104/74 101/71 O2 Sat by Pulse 91 93 Oximetry O2 Sat by Pulse Oximetry [ Assessment] 04/15/20 04/15/20 04/15/20 03:30 03:37 04:00 Temperature 98.4 F Pulse Rate 91 H 93 H Pulse Rate [ 99 H From Monitor] Respiratory 10 L 12 Rate Blood Pressure 94/66 105/75 O2 Sat by Pulse 98 98 Oximetry O2 Sat by Pulse Oximetry [ Assessment] 04/15/20 04/15/20 04/15/20 04:31 05:00 05:31 Temperature Pulse Rate 96 H 96 H 92 H Pulse Rate [ From Monitor] Respiratory 11 L 14 11 L Rate Blood Pressure 105/75 98/64 98/64 O2 Sat by Pulse 99 98 97 Oximetry O2 Sat by Pulse Oximetry [ Assessment] 04/15/20 04/15/20 04/15/20 06:00 06:31 07:00 Temperature Pulse Rate 98 H 93 H 110 H Pulse Rate [ From Monitor] Respiratory 17 11 L 21 Rate Blood Pressure 109/73 109/73 112/76 O2 Sat by Pulse 96 99 99 Oximetry O2 Sat by Pulse Oximetry [ Assessment] 04/15/20 04/15/20 04/15/20 07:30 08:00 08:31 Temperature 98.7 F Pulse Rate 96 H 106 H 108 H Pulse Rate [ 99 H From Monitor] Respiratory 11 L 12 22 Rate Blood Pressure 112/76 106/71 106/71 O2 Sat by Pulse 98 100 96 Oximetry O2 Sat by Pulse Oximetry [ Assessment] 04/15/20 04/15/20 04/15/20 08:46 08:51 09:00 Temperature Pulse Rate 110 H 111 H 106 H Pulse Rate [ From Monitor] Respiratory 27 H Rate Blood Pressure 106/71 106/71 110/77 O2 Sat by Pulse 95 95 96 Oximetry O2 Sat by Pulse Oximetry [ Assessment] 04/15/20 04/15/20 04/15/20 09:20 09:31 10:00 Temperature Pulse Rate 105 H 109 H 108 H Pulse Rate [ From Monitor] Respiratory 29 H 29 H Rate Blood Pressure 110/77 110/77 110/78 O2 Sat by Pulse 97 98 Oximetry O2 Sat by Pulse Oximetry [ Assessment] Constitutional: no acute distress, alert, other (thin middle aged male with normal respiratory effort at rest on MVS) Eyes: non-icteric ENT: oropharynx moist, other (S/P Tracheostomy) Neck: supple, no lymphadenopathy, no JVD Effort: mildly labored Ascultation: Bilateral: clear, diminished breath sounds, wheezes, rhonchi Percussion: Bilateral: not dull Cardiovascular: regular rate and rhythm, other (S1,S2, no murmurs) Gastrointestinal: normoactive bowel sounds, soft, non-tender, non-distended, other (+ distended but non tender suprapubis) Integumentary: normal, decubitus ulcer (sacral / gluteal) Extremities: no cyanosis, no edema, pulses normal, other (atrophic looking limbs) Neurologic: pupils equal and round, other (motor strength in extremities 1-2/5, awake, alert, mouths words to make needs known) Psychiatric: depressed CBC and BMP: 04/12/20 09:07 04/12/20 09:07 ABG, PT/INR, D-dimer: ABG ABG pH 7.371 (7.320-7.450) 03/08/20 12:34 POC ABG pCO2 63.1 mmHg (32.0-48.0) H 11/11/20 12:34 ABG pCO2 60.1 mm Hg 03/06/20 04:34 POC ABG pO2 90.5 mmHg (83-108) 03/08/20 12:34 ABG pO2 88.6 mm Hg (80.0-90.0) 03/06/20 04:34 POC ABG HCO3 35.7 03/08/20 12:34 ABG O2 Saturation 97.0 % (95.0-99.0) 03/06/20 04:34 PT/INR, D-dimer PT 15.6 Sec. (12.2-14.9) H 02/24/20 09:19 INR 1.21 (0.87-1.13) H 02/24/20 09:19 D-Dimer 1311.96 ng/mlDDU (0-234) H 02/24/20 09:19 Abnormal lab findings: Abnormal Labs 02/24/20 02/24/20 02/24/20 09:19 09:19 09:19 WBC 20.2 H RBC 5.05 H Hgb Hct MCV MCH RDW 15.3 H Plt Count Lymph % (Auto) Lymph # (Auto) [place] # (Auto) Seg Neutrophils % Seg Neuts % (Manual) 86.0 H Lymphocytes % (Manual) 1.0 L Monocytes % (Manual) Basophils % (Manual) Seg Neutrophils # Seg Neutrophils # Man 17.4 H Lymphocytes # (Manual) 0.2 L Monocytes # (Manual) Eosinophils # (Manual) Basophils # (Manual) PT 15.6 H INR 1.21 H D-Dimer 1311.96 H ABG pH POC ABG pCO2 POC ABG pO2 ABG pO2 ABG HCO3 ABG O2 Saturation ABG Base Excess ABG Hemoglobin ABG Oxyhemoglobin ABG Potassium ABG Glucose Oxyhemoglobin Carboxyhemoglobin Sodium 135 L Potassium 3.2 L Chloride 92.2 L Carbon Dioxide BUN 6 L Creatinine < 0.2 L Glucose 124 H POC Glucose Calcium Ferritin Total Bilirubin 2.30 H Alkaline Phosphatase 132 H Lactate Dehydrogenase Total Creatine Kinase CK-MB (CK-2) Rel Index Troponin T 0.080 H C-Reactive Protein Total Protein Albumin 3.6 L Prealbumin LDL Cholesterol Direct 41 L Arterial Blood Glucose Arterial Blood Ionized Calcium Urine WBC (Auto) 02/24/20 02/24/20 02/24/20 09:19 09:58 10:01 WBC RBC Hgb Hct MCV MCH RDW Plt Count Lymph % (Auto) Lymph # (Auto) [place] # (Auto) Seg Neutrophils % Seg Neuts % (Manual) Lymphocytes % (Manual) Monocytes % (Manual) Basophils % (Manual) Seg Neutrophils # Seg Neutrophils # Man Lymphocytes # (Manual) Monocytes # (Manual) Eosinophils # (Manual) Basophils # (Manual) PT INR D-Dimer ABG pH 7.176 L* POC ABG pCO2 POC ABG pO2 ABG pO2 91.2 H ABG HCO3 ABG O2 Saturation ABG Base Excess -4.6 L ABG Hemoglobin ABG Oxyhemoglobin ABG Potassium ABG Glucose Oxyhemoglobin 92.6 L Carboxyhemoglobin Sodium Potassium Chloride Carbon Dioxide BUN Creatinine Glucose POC Glucose Calcium Ferritin 1715.0 H Total Bilirubin Alkaline Phosphatase Lactate Dehydrogenase 303 H Total Creatine Kinase CK-MB (CK-2) Rel Index Troponin T C-Reactive Protein 26.10 H Total Protein Albumin Prealbumin LDL Cholesterol Direct Arterial Blood Glucose Arterial Blood Ionized Calcium Urine WBC (Auto) 02/24/20 02/24/20 02/24/20 11:52 13:45 19:35 WBC RBC Hgb Hct MCV MCH RDW Plt Count Lymph % (Auto) Lymph # (Auto) [place] # (Auto) Seg Neutrophils % Seg Neuts % (Manual) Lymphocytes % (Manual) Monocytes % (Manual) Basophils % (Manual) Seg Neutrophils # Seg Neutrophils # Man Lymphocytes # (Manual) Monocytes # (Manual) Eosinophils # (Manual) Basophils # (Manual) PT INR D-Dimer ABG pH 7.051 L* 7.300 L POC ABG pCO2 POC ABG pO2 ABG pO2 94.7 H 75.1 L ABG HCO3 18.0 L ABG O2 Saturation 93.5 L ABG Base Excess -6.8 L -7.8 L ABG Hemoglobin 13.2 L 11.9 L ABG Oxyhemoglobin ABG Potassium ABG Glucose Oxyhemoglobin 91.0 L 92.7 L Carboxyhemoglobin Sodium Potassium Chloride Carbon Dioxide BUN Creatinine Glucose POC Glucose Calcium Ferritin Total Bilirubin Alkaline Phosphatase Lactate Dehydrogenase Total Creatine Kinase CK-MB (CK-2) Rel Index Troponin T 0.034 H D C-Reactive Protein Total Protein Albumin Prealbumin LDL Cholesterol Direct Arterial Blood Glucose Arterial Blood Ionized Calcium Urine WBC (Auto) 02/25/20 02/25/20 02/25/20 04:00 04:00 12:26 WBC 22.9 H RBC Hgb Hct MCV 83 L MCH 27 L RDW Plt Count 468 H Lymph % (Auto) Lymph # (Auto) [place] # (Auto) Seg Neutrophils % Seg Neuts % (Manual) 89.0 H Lymphocytes % (Manual) 7.0 L Monocytes % (Manual) Basophils % (Manual) Seg Neutrophils # Seg Neutrophils # Man 20.4 H Lymphocytes # (Manual) Monocytes # (Manual) Eosinophils # (Manual) Basophils # (Manual) PT INR D-Dimer ABG pH POC ABG pCO2 POC ABG pO2 ABG pO2 ABG HCO3 ABG O2 Saturation ABG Base Excess ABG Hemoglobin ABG Oxyhemoglobin ABG Potassium 2.6 L ABG Glucose 142 H Oxyhemoglobin Carboxyhemoglobin Sodium Potassium 3.2 L Chloride Carbon Dioxide 18 L BUN Creatinine 0.2 L Glucose 114 H POC Glucose Calcium Ferritin Total Bilirubin Alkaline Phosphatase Lactate Dehydrogenase Total Creatine Kinase CK-MB (CK-2) Rel Index Troponin T C-Reactive Protein Total Protein Albumin 3.5 L Prealbumin LDL Cholesterol Direct Arterial Blood Glucose 142 H Arterial Blood Ionized Calcium Urine WBC (Auto) 02/26/20 02/26/20 02/26/20 15:58 17:00 23:43 WBC RBC Hgb Hct MCV MCH RDW Plt Count Lymph % (Auto) Lymph # (Auto) [place] # (Auto) Seg Neutrophils % Seg Neuts % (Manual) Lymphocytes % (Manual) Monocytes % (Manual) Basophils % (Manual) Seg Neutrophils # Seg Neutrophils # Man Lymphocytes # (Manual) Monocytes # (Manual) Eosinophils # (Manual) Basophils # (Manual) PT INR D-Dimer ABG pH 7.502 H POC ABG pCO2 POC ABG pO2 213.6 H ABG pO2 ABG HCO3 ABG O2 Saturation ABG Base Excess ABG Hemoglobin ABG Oxyhemoglobin 99.2 H ABG Potassium 2.9 L ABG Glucose 160 H Oxyhemoglobin Carboxyhemoglobin 0.4 L Sodium Potassium Chloride Carbon Dioxide BUN Creatinine Glucose POC Glucose 189 H 120 H Calcium Ferritin Total Bilirubin Alkaline Phosphatase Lactate Dehydrogenase Total Creatine Kinase CK-MB (CK-2) Rel Index Troponin T C-Reactive Protein Total Protein Albumin Prealbumin LDL Cholesterol Direct Arterial Blood Glucose 160 H Arterial Blood Ionized Calcium 4.5 L Urine WBC (Auto) 02/27/20 02/27/20 02/27/20 05:00 07:04 17:45 WBC RBC Hgb Hct MCV MCH RDW Plt Count Lymph % (Auto) Lymph # (Auto) [place] # (Auto) Seg Neutrophils % Seg Neuts % (Manual) Lymphocytes % (Manual) Monocytes % (Manual) Basophils % (Manual) Seg Neutrophils # Seg Neutrophils # Man Lymphocytes # (Manual) Monocytes # (Manual) Eosinophils # (Manual) Basophils # (Manual) PT INR D-Dimer ABG pH 7.524 H POC ABG pCO2 POC ABG pO2 ABG pO2 ABG HCO3 ABG O2 Saturation ABG Base Excess ABG Hemoglobin ABG Oxyhemoglobin ABG Potassium 3.0 L ABG Glucose 143 H Oxyhemoglobin Carboxyhemoglobin Sodium Potassium Chloride Carbon Dioxide BUN Creatinine Glucose POC Glucose 154 H 175 H Calcium Ferritin Total Bilirubin Alkaline Phosphatase Lactate Dehydrogenase Total Creatine Kinase CK-MB (CK-2) Rel Index Troponin T C-Reactive Protein Total Protein Albumin Prealbumin LDL Cholesterol Direct Arterial Blood Glucose 143 H Arterial Blood Ionized Calcium Urine WBC (Auto) 02/27/20 02/28/20 02/28/20 Unknown 00:21 04:15 WBC 18.7 H RBC Hgb Hct MCV MCH RDW Plt Count Lymph % (Auto) 8.7 L Lymph # (Auto) [place] # (Auto) 1.2 H Seg Neutrophils % 84.6 H Seg Neuts % (Manual) Lymphocytes % (Manual) Monocytes % (Manual) Basophils % (Manual) Seg Neutrophils # 15.9 H Seg Neutrophils # Man Lymphocytes # (Manual) Monocytes # (Manual) Eosinophils # (Manual) Basophils # (Manual) PT INR D-Dimer ABG pH POC ABG pCO2 POC ABG pO2 ABG pO2 ABG HCO3 ABG O2 Saturation ABG Base Excess ABG Hemoglobin ABG Oxyhemoglobin ABG Potassium ABG Glucose Oxyhemoglobin Carboxyhemoglobin Sodium Potassium 2.9 L* Chloride Carbon Dioxide 33 H D BUN Creatinine < 0.2 L Glucose 157 H POC Glucose 134 H Calcium Ferritin Total Bilirubin Alkaline Phosphatase Lactate Dehydrogenase Total Creatine Kinase CK-MB (CK-2) Rel Index Troponin T C-Reactive Protein Total Protein Albumin Prealbumin LDL Cholesterol Direct Arterial Blood Glucose Arterial Blood Ionized Calcium Urine WBC (Auto) 02/28/20 02/28/20 02/28/20 04:15 05:16 05:39 WBC RBC Hgb Hct MCV MCH RDW Plt Count Lymph % (Auto) Lymph # (Auto) [place] # (Auto) Seg Neutrophils % Seg Neuts % (Manual) Lymphocytes % (Manual) Monocytes % (Manual) Basophils % (Manual) Seg Neutrophils # Seg Neutrophils # Man Lymphocytes # (Manual) Monocytes # (Manual) Eosinophils # (Manual) Basophils # (Manual) PT INR D-Dimer ABG pH POC ABG pCO2 POC ABG pO2 ABG pO2 142.9 H ABG HCO3 34.1 H ABG O2 Saturation ABG Base Excess 8.3 H ABG Hemoglobin ABG Oxyhemoglobin ABG Potassium ABG Glucose Oxyhemoglobin Carboxyhemoglobin Sodium 151 H Potassium Chloride Carbon Dioxide 32 H BUN Creatinine 0.2 L Glucose 167 H POC Glucose 138 H Calcium Ferritin Total Bilirubin Alkaline Phosphatase Lactate Dehydrogenase Total Creatine Kinase CK-MB (CK-2) Rel Index Troponin T C-Reactive Protein Total Protein Albumin Prealbumin LDL Cholesterol Direct Arterial Blood Glucose Arterial Blood Ionized Calcium Urine WBC (Auto) 02/28/20 02/28/20 02/28/20 11:05 11:33 12:54 WBC RBC Hgb Hct MCV MCH RDW Plt Count Lymph % (Auto) Lymph # (Auto) [place] # (Auto) Seg Neutrophils % Seg Neuts % (Manual) Lymphocytes % (Manual) Monocytes % (Manual) Basophils % (Manual) Seg Neutrophils # Seg Neutrophils # Man Lymphocytes # (Manual) Monocytes # (Manual) Eosinophils # (Manual) Basophils # (Manual) PT INR D-Dimer ABG pH POC ABG pCO2 POC ABG pO2 ABG pO2 ABG HCO3 ABG O2 Saturation ABG Base Excess ABG Hemoglobin ABG Oxyhemoglobin ABG Potassium ABG Glucose Oxyhemoglobin Carboxyhemoglobin Sodium Potassium Chloride Carbon Dioxide BUN Creatinine Glucose POC Glucose 160 H Calcium Ferritin Total Bilirubin Alkaline Phosphatase Lactate Dehydrogenase Total Creatine Kinase CK-MB (CK-2) Rel Index Troponin T C-Reactive Protein 4.70 H Total Protein Albumin Prealbumin 0.090 L LDL Cholesterol Direct Arterial Blood Glucose Arterial Blood Ionized Calcium Urine WBC (Auto) 02/28/20 02/29/20 02/29/20 17:34 00:44 04:05 WBC 19.6 H RBC Hgb Hct MCV MCH 27 L RDW 15.4 H Plt Count Lymph % (Auto) Lymph # (Auto) [place] # (Auto) Seg Neutrophils % Seg Neuts % (Manual) 86.0 H Lymphocytes % (Manual) 7.0 L Monocytes % (Manual) Basophils % (Manual) Seg Neutrophils # Seg Neutrophils # Man 16.9 H Lymphocytes # (Manual) Monocytes # (Manual) 1.2 H Eosinophils # (Manual) Basophils # (Manual) PT INR D-Dimer ABG pH POC ABG pCO2 POC ABG pO2 ABG pO2 ABG HCO3 ABG O2 Saturation ABG Base Excess ABG Hemoglobin ABG Oxyhemoglobin ABG Potassium ABG Glucose Oxyhemoglobin Carboxyhemoglobin Sodium Potassium Chloride Carbon Dioxide BUN Creatinine Glucose POC Glucose 136 H 156 H Calcium Ferritin Total Bilirubin Alkaline Phosphatase Lactate Dehydrogenase Total Creatine Kinase CK-MB (CK-2) Rel Index Troponin T C-Reactive Protein Total Protein Albumin Prealbumin LDL Cholesterol Direct Arterial Blood Glucose Arterial Blood Ionized Calcium Urine WBC (Auto) 02/29/20 02/29/20 02/29/20 04:05 05:14 05:33 WBC RBC Hgb Hct MCV MCH RDW Plt Count Lymph % (Auto) Lymph # (Auto) [place] # (Auto) Seg Neutrophils % Seg Neuts % (Manual) Lymphocytes % (Manual) Monocytes % (Manual) Basophils % (Manual) Seg Neutrophils # Seg Neutrophils # Man Lymphocytes # (Manual) Monocytes # (Manual) Eosinophils # (Manual) Basophils # (Manual) PT INR D-Dimer ABG pH POC ABG pCO2 54.3 H POC ABG pO2 124.8 H ABG pO2 ABG HCO3 ABG O2 Saturation ABG Base Excess ABG Hemoglobin ABG Oxyhemoglobin ABG Potassium ABG Glucose 185 H Oxyhemoglobin Carboxyhemoglobin Sodium 148 H Potassium Chloride Carbon Dioxide 33 H BUN Creatinine < 0.2 L Glucose 173 H POC Glucose 152 H Calcium Ferritin Total Bilirubin Alkaline Phosphatase Lactate Dehydrogenase Total Creatine Kinase CK-MB (CK-2) Rel Index Troponin T C-Reactive Protein Total Protein Albumin Prealbumin LDL Cholesterol Direct Arterial Blood Glucose 185 H Arterial Blood Ionized Calcium Urine WBC (Auto) 03/01/20 03/01/20 03/01/20 00:00 03:45 04:33 WBC 23.1 H RBC Hgb Hct MCV MCH 27 L RDW 15.3 H Plt Count Lymph % (Auto) Lymph # (Auto) [place] # (Auto) Seg Neutrophils % Seg Neuts % (Manual) 92.0 H Lymphocytes % (Manual) 6.0 L Monocytes % (Manual) Basophils % (Manual) Seg Neutrophils # Seg Neutrophils # Man 21.3 H Lymphocytes # (Manual) Monocytes # (Manual) Eosinophils # (Manual) 0.5 H Basophils # (Manual) PT INR D-Dimer ABG pH 7.492 H POC ABG pCO2 POC ABG pO2 ABG pO2 157.1 H ABG HCO3 32.3 H ABG O2 Saturation ABG Base Excess 8.1 H ABG Hemoglobin 13.2 L ABG Oxyhemoglobin ABG Potassium ABG Glucose Oxyhemoglobin Carboxyhemoglobin Sodium Potassium Chloride Carbon Dioxide BUN Creatinine Glucose POC Glucose 109 H Calcium Ferritin Total Bilirubin Alkaline Phosphatase Lactate Dehydrogenase Total Creatine Kinase CK-MB (CK-2) Rel Index Troponin T C-Reactive Protein Total Protein Albumin Prealbumin LDL Cholesterol Direct Arterial Blood Glucose Arterial Blood Ionized Calcium Urine WBC (Auto) 03/01/20 03/01/20 03/01/20 04:33 05:29 12:32 WBC RBC Hgb Hct MCV MCH RDW Plt Count Lymph % (Auto) Lymph # (Auto) [place] # (Auto) Seg Neutrophils % Seg Neuts % (Manual) Lymphocytes % (Manual) Monocytes % (Manual) Basophils % (Manual) Seg Neutrophils # Seg Neutrophils # Man Lymphocytes # (Manual) Monocytes # (Manual) Eosinophils # (Manual) Basophils # (Manual) PT INR D-Dimer ABG pH POC ABG pCO2 POC ABG pO2 ABG pO2 ABG HCO3 ABG O2 Saturation ABG Base Excess ABG Hemoglobin ABG Oxyhemoglobin ABG Potassium ABG Glucose Oxyhemoglobin Carboxyhemoglobin Sodium 146 H Potassium Chloride Carbon Dioxide 32 H BUN Creatinine < 0.2 L Glucose 120 H POC Glucose 120 H 128 H Calcium Ferritin Total Bilirubin Alkaline Phosphatase Lactate Dehydrogenase Total Creatine Kinase CK-MB (CK-2) Rel Index Troponin T C-Reactive Protein Total Protein Albumin Prealbumin LDL Cholesterol Direct Arterial Blood Glucose Arterial Blood Ionized Calcium Urine WBC (Auto) 03/01/20 03/01/20 03/02/20 17:38 23:46 06:13 WBC RBC Hgb Hct MCV MCH RDW Plt Count Lymph % (Auto) Lymph # (Auto) [place] # (Auto) Seg Neutrophils % Seg Neuts % (Manual) Lymphocytes % (Manual) Monocytes % (Manual) Basophils % (Manual) Seg Neutrophils # Seg Neutrophils # Man Lymphocytes # (Manual) Monocytes # (Manual) Eosinophils # (Manual) Basophils # (Manual) PT INR D-Dimer ABG pH POC ABG pCO2 POC ABG pO2 ABG pO2 ABG HCO3 ABG O2 Saturation ABG Base Excess ABG Hemoglobin ABG Oxyhemoglobin ABG Potassium ABG Glucose Oxyhemoglobin Carboxyhemoglobin Sodium Potassium Chloride Carbon Dioxide BUN Creatinine Glucose POC Glucose 114 H 121 H 120 H Calcium Ferritin Total Bilirubin Alkaline Phosphatase Lactate Dehydrogenase Total Creatine Kinase CK-MB (CK-2) Rel Index Troponin T C-Reactive Protein Total Protein Albumin Prealbumin LDL Cholesterol Direct Arterial Blood Glucose Arterial Blood Ionized Calcium Urine WBC (Auto) 03/02/20 03/02/20 03/03/20 09:47 09:47 10:21 WBC 23.6 H RBC Hgb Hct MCV MCH RDW 15.3 H Plt Count 494 H Lymph % (Auto) Lymph # (Auto) [place] # (Auto) Seg Neutrophils % Seg Neuts % (Manual) 85.0 H Lymphocytes % (Manual) 6.0 L Monocytes % (Manual) Basophils % (Manual) Seg Neutrophils # Seg Neutrophils # Man 20.1 H Lymphocytes # (Manual) Monocytes # (Manual) 1.7 H Eosinophils # (Manual) Basophils # (Manual) PT INR D-Dimer ABG pH POC ABG pCO2 POC ABG pO2 ABG pO2 ABG HCO3 ABG O2 Saturation ABG Base Excess ABG Hemoglobin ABG Oxyhemoglobin ABG Potassium 3.3 L ABG Glucose 158 H Oxyhemoglobin Carboxyhemoglobin Sodium Potassium Chloride Carbon Dioxide BUN Creatinine < 0.2 L Glucose 177 H POC Glucose Calcium Ferritin Total Bilirubin Alkaline Phosphatase Lactate Dehydrogenase Total Creatine Kinase CK-MB (CK-2) Rel Index Troponin T C-Reactive Protein Total Protein Albumin Prealbumin LDL Cholesterol Direct Arterial Blood Glucose 158 H Arterial Blood Ionized Calcium Urine WBC (Auto) 03/03/20 03/04/20 03/04/20 21:30 00:00 12:23 WBC RBC Hgb Hct MCV MCH RDW Plt Count Lymph % (Auto) Lymph # (Auto) [place] # (Auto) Seg Neutrophils % Seg Neuts % (Manual) Lymphocytes % (Manual) Monocytes % (Manual) Basophils % (Manual) Seg Neutrophils # Seg Neutrophils # Man Lymphocytes # (Manual) Monocytes # (Manual) Eosinophils # (Manual) Basophils # (Manual) PT INR D-Dimer ABG pH 7.328 L POC ABG pCO2 POC ABG pO2 ABG pO2 68.4 L ABG HCO3 35.0 H ABG O2 Saturation 93.9 L ABG Base Excess 6.8 H ABG Hemoglobin 12.7 L ABG Oxyhemoglobin ABG Potassium ABG Glucose Oxyhemoglobin 91.9 L Carboxyhemoglobin Sodium Potassium Chloride Carbon Dioxide BUN Creatinine Glucose POC Glucose 187 H 163 H Calcium Ferritin Total Bilirubin Alkaline Phosphatase Lactate Dehydrogenase Total Creatine Kinase CK-MB (CK-2) Rel Index Troponin T C-Reactive Protein Total Protein Albumin Prealbumin LDL Cholesterol Direct Arterial Blood Glucose Arterial Blood Ionized Calcium Urine WBC (Auto) 03/04/20 03/04/20 03/05/20 18:15 21:30 06:02 WBC RBC Hgb Hct MCV MCH RDW Plt Count Lymph % (Auto) Lymph # (Auto) [place] # (Auto) Seg Neutrophils % Seg Neuts % (Manual) Lymphocytes % (Manual) Monocytes % (Manual) Basophils % (Manual) Seg Neutrophils # Seg Neutrophils # Man Lymphocytes # (Manual) Monocytes # (Manual) Eosinophils # (Manual) Basophils # (Manual) PT INR D-Dimer ABG pH 7.297 L POC ABG pCO2 POC ABG pO2 ABG pO2 ABG HCO3 41.0 H ABG O2 Saturation ABG Base Excess 11.0 H ABG Hemoglobin 13.1 L ABG Oxyhemoglobin ABG Potassium ABG Glucose Oxyhemoglobin 94.5 L Carboxyhemoglobin Sodium Potassium Chloride Carbon Dioxide BUN Creatinine Glucose POC Glucose 192 H 127 H Calcium Ferritin Total Bilirubin Alkaline Phosphatase Lactate Dehydrogenase Total Creatine Kinase CK-MB (CK-2) Rel Index Troponin T C-Reactive Protein Total Protein Albumin Prealbumin LDL Cholesterol Direct Arterial Blood Glucose Arterial Blood Ionized Calcium Urine WBC (Auto) 03/05/20 03/05/20 03/06/20 12:09 16:42 00:24 WBC RBC Hgb Hct MCV MCH RDW Plt Count Lymph % (Auto) Lymph # (Auto) [place] # (Auto) Seg Neutrophils % Seg Neuts % (Manual) Lymphocytes % (Manual) Monocytes % (Manual) Basophils % (Manual) Seg Neutrophils # Seg Neutrophils # Man Lymphocytes # (Manual) Monocytes # (Manual) Eosinophils # (Manual) Basophils # (Manual) PT INR D-Dimer ABG pH POC ABG pCO2 POC ABG pO2 ABG pO2 ABG HCO3 ABG O2 Saturation ABG Base Excess ABG Hemoglobin ABG Oxyhemoglobin ABG Potassium ABG Glucose Oxyhemoglobin Carboxyhemoglobin Sodium Potassium Chloride Carbon Dioxide BUN Creatinine Glucose POC Glucose 147 H 114 H 134 H Calcium Ferritin Total Bilirubin Alkaline Phosphatase Lactate Dehydrogenase Total Creatine Kinase CK-MB (CK-2) Rel Index Troponin T C-Reactive Protein Total Protein Albumin Prealbumin LDL Cholesterol Direct Arterial Blood Glucose Arterial Blood Ionized Calcium Urine WBC (Auto) 03/06/20 03/06/20 03/06/20 04:34 05:53 06:08 WBC 25.4 H RBC Hgb 10.5 L Hct 32.7 L MCV MCH 27 L RDW 15.3 H Plt Count 634 H Lymph % (Auto) Lymph # (Auto) [place] # (Auto) Seg Neutrophils % Seg Neuts % (Manual) 88.0 H Lymphocytes % (Manual) 2.0 L Monocytes % (Manual) 8.0 H Basophils % (Manual) Seg Neutrophils # Seg Neutrophils # Man 22.4 H Lymphocytes # (Manual) 0.5 L Monocytes # (Manual) 2.0 H Eosinophils # (Manual) Basophils # (Manual) PT INR D-Dimer ABG pH POC ABG pCO2 POC ABG pO2 ABG pO2 ABG HCO3 37.9 H ABG O2 Saturation ABG Base Excess 11.4 H ABG Hemoglobin 10.6 L ABG Oxyhemoglobin ABG Potassium ABG Glucose Oxyhemoglobin 94.7 L Carboxyhemoglobin Sodium Potassium Chloride Carbon Dioxide BUN Creatinine Glucose POC Glucose 135 H Calcium Ferritin Total Bilirubin Alkaline Phosphatase Lactate Dehydrogenase Total Creatine Kinase CK-MB (CK-2) Rel Index Troponin T C-Reactive Protein Total Protein Albumin Prealbumin LDL Cholesterol Direct Arterial Blood Glucose Arterial Blood Ionized Calcium Urine WBC (Auto) 03/06/20 03/06/20 03/06/20 06:08 12:19 19:10 WBC RBC Hgb Hct MCV MCH RDW Plt Count Lymph % (Auto) Lymph # (Auto) [place] # (Auto) Seg Neutrophils % Seg Neuts % (Manual) Lymphocytes % (Manual) Monocytes % (Manual) Basophils % (Manual) Seg Neutrophils # Seg Neutrophils # Man Lymphocytes # (Manual) Monocytes # (Manual) Eosinophils # (Manual) Basophils # (Manual) PT INR D-Dimer ABG pH POC ABG pCO2 POC ABG pO2 ABG pO2 ABG HCO3 ABG O2 Saturation ABG Base Excess ABG Hemoglobin ABG Oxyhemoglobin ABG Potassium ABG Glucose Oxyhemoglobin Carboxyhemoglobin Sodium 150 H D Potassium Chloride Carbon Dioxide 39 H D BUN 23 H Creatinine < 0.2 L Glucose 144 H POC Glucose 169 H 152 H Calcium Ferritin Total Bilirubin Alkaline Phosphatase Lactate Dehydrogenase Total Creatine Kinase CK-MB (CK-2) Rel Index Troponin T C-Reactive Protein Total Protein Albumin 3.3 L Prealbumin LDL Cholesterol Direct Arterial Blood Glucose Arterial Blood Ionized Calcium Urine WBC (Auto) 03/06/20 03/07/20 03/07/20 23:58 04:25 04:25 WBC 22.1 H RBC Hgb 10.9 L Hct 32.9 L MCV MCH RDW 15.5 H Plt Count 739 H Lymph % (Auto) 7.8 L Lymph # (Auto) [place] # (Auto) 1.3 H Seg Neutrophils % 85.5 H Seg Neuts % (Manual) Lymphocytes % (Manual) Monocytes % (Manual) Basophils % (Manual) Seg Neutrophils # 18.9 H Seg Neutrophils # Man Lymphocytes # (Manual) Monocytes # (Manual) Eosinophils # (Manual) Basophils # (Manual) PT INR D-Dimer ABG pH POC ABG pCO2 POC ABG pO2 ABG pO2 ABG HCO3 ABG O2 Saturation ABG Base Excess ABG Hemoglobin ABG Oxyhemoglobin ABG Potassium ABG Glucose Oxyhemoglobin Carboxyhemoglobin Sodium 146 H Potassium Chloride Carbon Dioxide 37 H BUN Creatinine < 0.2 L Glucose 118 H POC Glucose 111 H Calcium Ferritin Total Bilirubin Alkaline Phosphatase Lactate Dehydrogenase Total Creatine Kinase CK-MB (CK-2) Rel Index Troponin T C-Reactive Protein Total Protein Albumin 3.7 L Prealbumin LDL Cholesterol Direct Arterial Blood Glucose Arterial Blood Ionized Calcium Urine WBC (Auto) 03/07/20 03/07/20 03/07/20 05:20 17:45 23:32 WBC RBC Hgb Hct MCV MCH RDW Plt Count Lymph % (Auto) Lymph # (Auto) [place] # (Auto) Seg Neutrophils % Seg Neuts % (Manual) Lymphocytes % (Manual) Monocytes % (Manual) Basophils % (Manual) Seg Neutrophils # Seg Neutrophils # Man Lymphocytes # (Manual) Monocytes # (Manual) Eosinophils # (Manual) Basophils # (Manual) PT INR D-Dimer ABG pH POC ABG pCO2 POC ABG pO2 ABG pO2 ABG HCO3 ABG O2 Saturation ABG Base Excess ABG Hemoglobin ABG Oxyhemoglobin ABG Potassium ABG Glucose Oxyhemoglobin Carboxyhemoglobin Sodium Potassium Chloride Carbon Dioxide BUN Creatinine Glucose POC Glucose 113 H 124 H 210 H Calcium Ferritin Total Bilirubin Alkaline Phosphatase Lactate Dehydrogenase Total Creatine Kinase CK-MB (CK-2) Rel Index Troponin T C-Reactive Protein Total Protein Albumin Prealbumin LDL Cholesterol Direct Arterial Blood Glucose Arterial Blood Ionized Calcium Urine WBC (Auto) 03/08/20 03/08/20 03/08/20 05:35 06:43 06:43 WBC 28.9 H RBC 3.53 L Hgb 9.7 L Hct 30.3 L MCV MCH RDW 15.6 H Plt Count 578 H Lymph % (Auto) Lymph # (Auto) [place] # (Auto) Seg Neutrophils % Seg Neuts % (Manual) 93.0 H Lymphocytes % (Manual) 4.0 L Monocytes % (Manual) Basophils % (Manual) Seg Neutrophils # Seg Neutrophils # Man 26.9 H Lymphocytes # (Manual) Monocytes # (Manual) Eosinophils # (Manual) Basophils # (Manual) PT INR D-Dimer ABG pH POC ABG pCO2 POC ABG pO2 ABG pO2 ABG HCO3 ABG O2 Saturation ABG Base Excess ABG Hemoglobin ABG Oxyhemoglobin ABG Potassium ABG Glucose Oxyhemoglobin Carboxyhemoglobin Sodium 146 H Potassium Chloride Carbon Dioxide 35 H BUN 34 H Creatinine 0.3 L D Glucose 125 H POC Glucose 147 H Calcium Ferritin Total Bilirubin Alkaline Phosphatase Lactate Dehydrogenase Total Creatine Kinase CK-MB (CK-2) Rel Index Troponin T C-Reactive Protein Total Protein 5.9 L Albumin 3.2 L Prealbumin LDL Cholesterol Direct Arterial Blood Glucose Arterial Blood Ionized Calcium Urine WBC (Auto) 03/08/20 03/08/20 03/08/20 08:57 11:14 12:34 WBC RBC Hgb Hct MCV MCH RDW Plt Count Lymph % (Auto) Lymph # (Auto) [place] # (Auto) Seg Neutrophils % Seg Neuts % (Manual) Lymphocytes % (Manual) Monocytes % (Manual) Basophils % (Manual) Seg Neutrophils # Seg Neutrophils # Man Lymphocytes # (Manual) Monocytes # (Manual) Eosinophils # (Manual) Basophils # (Manual) PT INR D-Dimer ABG pH POC ABG pCO2 63.1 H POC ABG pO2 ABG pO2 ABG HCO3 ABG O2 Saturation ABG Base Excess ABG Hemoglobin 10.9 L ABG Oxyhemoglobin ABG Potassium ABG Glucose 176 H Oxyhemoglobin Carboxyhemoglobin Sodium Potassium Chloride Carbon Dioxide BUN Creatinine Glucose POC Glucose 171 H Calcium Ferritin Total Bilirubin Alkaline Phosphatase Lactate Dehydrogenase Total Creatine Kinase CK-MB (CK-2) Rel Index Troponin T C-Reactive Protein Total Protein Albumin Prealbumin LDL Cholesterol Direct Arterial Blood Glucose 176 H Arterial Blood Ionized Calcium 4.5 L Urine WBC (Auto) 10.0 H 1103/08/20 03/09/20 18:02 23:43 05:49 WBC RBC Hgb Hct MCV MCH RDW Plt Count Lymph % (Auto) Lymph # (Auto) [place] # (Auto) Seg Neutrophils % Seg Neuts % (Manual) Lymphocytes % (Manual) Monocytes % (Manual) Basophils % (Manual) Seg Neutrophils # Seg Neutrophils # Man Lymphocytes # (Manual) Monocytes # (Manual) Eosinophils # (Manual) Basophils # (Manual) PT INR D-Dimer ABG pH POC ABG pCO2 POC ABG pO2 ABG pO2 ABG HCO3 ABG O2 Saturation ABG Base Excess ABG Hemoglobin ABG Oxyhemoglobin ABG Potassium ABG Glucose Oxyhemoglobin Carboxyhemoglobin Sodium Potassium Chloride Carbon Dioxide BUN Creatinine Glucose POC Glucose 157 H 134 H 163 H Calcium Ferritin Total Bilirubin Alkaline Phosphatase Lactate Dehydrogenase Total Creatine Kinase CK-MB (CK-2) Rel Index Troponin T C-Reactive Protein Total Protein Albumin Prealbumin LDL Cholesterol Direct Arterial Blood Glucose Arterial Blood Ionized Calcium Urine WBC (Auto) 03/09/20 03/09/20 03/09/20 08:35 08:35 12:11 WBC 23.4 H RBC 3.36 L Hgb 9.3 L Hct 28.8 L MCV MCH RDW 15.9 H Plt Count 521 H Lymph % (Auto) Lymph # (Auto) [place] # (Auto) Seg Neutrophils % Seg Neuts % (Manual) 87.0 H Lymphocytes % (Manual) 4.0 L Monocytes % (Manual) 9.0 H Basophils % (Manual) Seg Neutrophils # Seg Neutrophils # Man 20.4 H Lymphocytes # (Manual) 0.9 L Monocytes # (Manual) 2.1 H Eosinophils # (Manual) Basophils # (Manual) PT INR D-Dimer ABG pH POC ABG pCO2 POC ABG pO2 ABG pO2 ABG HCO3 ABG O2 Saturation ABG Base Excess ABG Hemoglobin ABG Oxyhemoglobin ABG Potassium ABG Glucose Oxyhemoglobin Carboxyhemoglobin Sodium 147 H Potassium Chloride Carbon Dioxide 37 H BUN 63 H Creatinine Glucose 154 H POC Glucose 128 H Calcium Ferritin Total Bilirubin Alkaline Phosphatase Lactate Dehydrogenase Total Creatine Kinase CK-MB (CK-2) Rel Index Troponin T C-Reactive Protein Total Protein Albumin Prealbumin LDL Cholesterol Direct Arterial Blood Glucose Arterial Blood Ionized Calcium Urine WBC (Auto) 03/09/20 03/10/20 03/10/20 17:51 00:25 05:41 WBC RBC Hgb Hct MCV MCH RDW Plt Count Lymph % (Auto) Lymph # (Auto) [place] # (Auto) Seg Neutrophils % Seg Neuts % (Manual) Lymphocytes % (Manual) Monocytes % (Manual) Basophils % (Manual) Seg Neutrophils # Seg Neutrophils # Man Lymphocytes # (Manual) Monocytes # (Manual) Eosinophils # (Manual) Basophils # (Manual) PT INR D-Dimer ABG pH POC ABG pCO2 POC ABG pO2 ABG pO2 ABG HCO3 ABG O2 Saturation ABG Base Excess ABG Hemoglobin ABG Oxyhemoglobin ABG Potassium ABG Glucose Oxyhemoglobin Carboxyhemoglobin Sodium Potassium Chloride Carbon Dioxide BUN Creatinine Glucose POC Glucose 127 H 128 H 153 H Calcium Ferritin Total Bilirubin Alkaline Phosphatase Lactate Dehydrogenase Total Creatine Kinase CK-MB (CK-2) Rel Index Troponin T C-Reactive Protein Total Protein Albumin Prealbumin LDL Cholesterol Direct Arterial Blood Glucose Arterial Blood Ionized Calcium Urine WBC (Auto) 03/10/20 03/10/20 03/10/20 06:14 06:14 12:02 WBC 18.3 H RBC 3.45 L Hgb 9.5 L Hct 29.5 L MCV MCH RDW 16.1 H Plt Count 494 H Lymph % (Auto) Lymph # (Auto) [place] # (Auto) Seg Neutrophils % Seg Neuts % (Manual) 95.0 H Lymphocytes % (Manual) 1.0 L Monocytes % (Manual) Basophils % (Manual) Seg Neutrophils # Seg Neutrophils # Man 17.4 H Lymphocytes # (Manual) 0.2 L Monocytes # (Manual) Eosinophils # (Manual) Basophils # (Manual) PT INR D-Dimer ABG pH POC ABG pCO2 POC ABG pO2 ABG pO2 ABG HCO3 ABG O2 Saturation ABG Base Excess ABG Hemoglobin ABG Oxyhemoglobin ABG Potassium ABG Glucose Oxyhemoglobin Carboxyhemoglobin Sodium 149 H Potassium Chloride Carbon Dioxide 35 H BUN 34 H Creatinine 0.2 L D Glucose 177 H POC Glucose 151 H Calcium Ferritin Total Bilirubin Alkaline Phosphatase Lactate Dehydrogenase Total Creatine Kinase CK-MB (CK-2) Rel Index Troponin T C-Reactive Protein Total Protein Albumin Prealbumin LDL Cholesterol Direct Arterial Blood Glucose Arterial Blood Ionized Calcium Urine WBC (Auto) 03/10/20 03/10/20 03/11/20 17:41 23:53 05:02 WBC RBC Hgb Hct MCV MCH RDW Plt Count Lymph % (Auto) Lymph # (Auto) [place] # (Auto) Seg Neutrophils % Seg Neuts % (Manual) Lymphocytes % (Manual) Monocytes % (Manual) Basophils % (Manual) Seg Neutrophils # Seg Neutrophils # Man Lymphocytes # (Manual) Monocytes # (Manual) Eosinophils # (Manual) Basophils # (Manual) PT INR D-Dimer ABG pH POC ABG pCO2 POC ABG pO2 ABG pO2 ABG HCO3 ABG O2 Saturation ABG Base Excess ABG Hemoglobin ABG Oxyhemoglobin ABG Potassium ABG Glucose Oxyhemoglobin Carboxyhemoglobin Sodium Potassium Chloride Carbon Dioxide BUN Creatinine Glucose POC Glucose 168 H 142 H 146 H Calcium Ferritin Total Bilirubin Alkaline Phosphatase Lactate Dehydrogenase Total Creatine Kinase CK-MB (CK-2) Rel Index Troponin T C-Reactive Protein Total Protein Albumin Prealbumin LDL Cholesterol Direct Arterial Blood Glucose Arterial Blood Ionized Calcium Urine WBC (Auto) 03/11/20 03/11/20 03/11/20 11:30 14:01 14:01 WBC 19.7 H RBC 3.04 L Hgb 8.7 L Hct 25.8 L MCV MCH RDW 15.6 H Plt Count Lymph % (Auto) Lymph # (Auto) [place] # (Auto) Seg Neutrophils % Seg Neuts % (Manual) Lymphocytes % (Manual) Monocytes % (Manual) Basophils % (Manual) Seg Neutrophils # Seg Neutrophils # Man Lymphocytes # (Manual) Monocytes # (Manual) Eosinophils # (Manual) Basophils # (Manual) PT INR D-Dimer ABG pH POC ABG pCO2 POC ABG pO2 ABG pO2 ABG HCO3 ABG O2 Saturation ABG Base Excess ABG Hemoglobin ABG Oxyhemoglobin ABG Potassium ABG Glucose Oxyhemoglobin Carboxyhemoglobin Sodium 151 H Potassium Chloride Carbon Dioxide 37 H BUN Creatinine < 0.2 L Glucose 171 H POC Glucose 248 H Calcium Ferritin Total Bilirubin Alkaline Phosphatase Lactate Dehydrogenase Total Creatine Kinase CK-MB (CK-2) Rel Index Troponin T C-Reactive Protein Total Protein Albumin Prealbumin LDL Cholesterol Direct Arterial Blood Glucose Arterial Blood Ionized Calcium Urine WBC (Auto) 03/11/20 03/11/20 03/12/20 17:09 23:52 04:39 WBC 19.9 H RBC 3.16 L Hgb 8.9 L Hct 27.5 L MCV MCH RDW 15.7 H Plt Count Lymph % (Auto) 6.8 L Lymph # (Auto) [place] # (Auto) 1.2 H Seg Neutrophils % 86.0 H Seg Neuts % (Manual) Lymphocytes % (Manual) Monocytes % (Manual) Basophils % (Manual) Seg Neutrophils # 17.1 H Seg Neutrophils # Man Lymphocytes # (Manual) Monocytes # (Manual) Eosinophils # (Manual) Basophils # (Manual) PT INR D-Dimer ABG pH POC ABG pCO2 POC ABG pO2 ABG pO2 ABG HCO3 ABG O2 Saturation ABG Base Excess ABG Hemoglobin ABG Oxyhemoglobin ABG Potassium ABG Glucose Oxyhemoglobin Carboxyhemoglobin Sodium Potassium Chloride Carbon Dioxide BUN Creatinine Glucose POC Glucose 124 H 131 H Calcium Ferritin Total Bilirubin Alkaline Phosphatase Lactate Dehydrogenase Total Creatine Kinase CK-MB (CK-2) Rel Index Troponin T C-Reactive Protein Total Protein Albumin Prealbumin LDL Cholesterol Direct Arterial Blood Glucose Arterial Blood Ionized Calcium Urine WBC (Auto) 03/12/20 03/12/20 03/12/20 04:39 05:28 11:34 WBC RBC Hgb Hct MCV MCH RDW Plt Count Lymph % (Auto) Lymph # (Auto) [place] # (Auto) Seg Neutrophils % Seg Neuts % (Manual) Lymphocytes % (Manual) Monocytes % (Manual) Basophils % (Manual) Seg Neutrophils # Seg Neutrophils # Man Lymphocytes # (Manual) Monocytes # (Manual) Eosinophils # (Manual) Basophils # (Manual) PT INR D-Dimer ABG pH POC ABG pCO2 POC ABG pO2 ABG pO2 ABG HCO3 ABG O2 Saturation ABG Base Excess ABG Hemoglobin ABG Oxyhemoglobin ABG Potassium ABG Glucose Oxyhemoglobin Carboxyhemoglobin Sodium 147 H Potassium Chloride Carbon Dioxide 40 H BUN Creatinine < 0.2 L Glucose 175 H POC Glucose 167 H 144 H Calcium Ferritin Total Bilirubin Alkaline Phosphatase Lactate Dehydrogenase Total Creatine Kinase CK-MB (CK-2) Rel Index Troponin T C-Reactive Protein Total Protein Albumin Prealbumin LDL Cholesterol Direct Arterial Blood Glucose Arterial Blood Ionized Calcium Urine WBC (Auto) 03/12/20 03/12/20 03/13/20 17:32 23:57 05:57 WBC RBC Hgb Hct MCV MCH RDW Plt Count Lymph % (Auto) Lymph # (Auto) [place] # (Auto) Seg Neutrophils % Seg Neuts % (Manual) Lymphocytes % (Manual) Monocytes % (Manual) Basophils % (Manual) Seg Neutrophils # Seg Neutrophils # Man Lymphocytes # (Manual) Monocytes # (Manual) Eosinophils # (Manual) Basophils # (Manual) PT INR D-Dimer ABG pH POC ABG pCO2 POC ABG pO2 ABG pO2 ABG HCO3 ABG O2 Saturation ABG Base Excess ABG Hemoglobin ABG Oxyhemoglobin ABG Potassium ABG Glucose Oxyhemoglobin Carboxyhemoglobin Sodium Potassium Chloride Carbon Dioxide BUN Creatinine Glucose POC Glucose 141 H 137 H 161 H Calcium Ferritin Total Bilirubin Alkaline Phosphatase Lactate Dehydrogenase Total Creatine Kinase CK-MB (CK-2) Rel Index Troponin T C-Reactive Protein Total Protein Albumin Prealbumin LDL Cholesterol Direct Arterial Blood Glucose Arterial Blood Ionized Calcium Urine WBC (Auto) 03/13/20 03/13/20 03/13/20 12:28 14:14 18:39 WBC RBC Hgb Hct MCV MCH RDW Plt Count Lymph % (Auto) Lymph # (Auto) [place] # (Auto) Seg Neutrophils % Seg Neuts % (Manual) Lymphocytes % (Manual) Monocytes % (Manual) Basophils % (Manual) Seg Neutrophils # Seg Neutrophils # Man Lymphocytes # (Manual) Monocytes # (Manual) Eosinophils # (Manual) Basophils # (Manual) PT INR D-Dimer ABG pH POC ABG pCO2 POC ABG pO2 ABG pO2 ABG HCO3 ABG O2 Saturation ABG Base Excess ABG Hemoglobin ABG Oxyhemoglobin ABG Potassium ABG Glucose Oxyhemoglobin Carboxyhemoglobin Sodium Potassium Chloride Carbon Dioxide 39 H BUN Creatinine < 0.2 L Glucose 129 H POC Glucose 130 H 125 H Calcium Ferritin Total Bilirubin Alkaline Phosphatase Lactate Dehydrogenase Total Creatine Kinase CK-MB (CK-2) Rel Index Troponin T C-Reactive Protein Total Protein Albumin Prealbumin LDL Cholesterol Direct Arterial Blood Glucose Arterial Blood Ionized Calcium Urine WBC (Auto) 03/13/20 03/14/20 03/14/20 23:33 05:24 08:07 WBC 16.8 H RBC 2.81 L Hgb 7.9 L Hct 23.9 L MCV MCH RDW 15.9 H Plt Count Lymph % (Auto) Lymph # (Auto) [place] # (Auto) Seg Neutrophils % Seg Neuts % (Manual) 84.0 H Lymphocytes % (Manual) 10.0 L Monocytes % (Manual) Basophils % (Manual) Seg Neutrophils # Seg Neutrophils # Man 14.1 H Lymphocytes # (Manual) Monocytes # (Manual) Eosinophils # (Manual) Basophils # (Manual) PT INR D-Dimer ABG pH POC ABG pCO2 POC ABG pO2 ABG pO2 ABG HCO3 ABG O2 Saturation ABG Base Excess ABG Hemoglobin ABG Oxyhemoglobin ABG Potassium ABG Glucose Oxyhemoglobin Carboxyhemoglobin Sodium Potassium Chloride Carbon Dioxide BUN Creatinine Glucose POC Glucose 146 H 125 H Calcium Ferritin Total Bilirubin Alkaline Phosphatase Lactate Dehydrogenase Total Creatine Kinase CK-MB (CK-2) Rel Index Troponin T C-Reactive Protein Total Protein Albumin Prealbumin LDL Cholesterol Direct Arterial Blood Glucose Arterial Blood Ionized Calcium Urine WBC (Auto) 03/14/20 03/14/20 03/14/20 08:07 12:21 18:26 WBC RBC Hgb Hct MCV MCH RDW Plt Count Lymph % (Auto) Lymph # (Auto) [place] # (Auto) Seg Neutrophils % Seg Neuts % (Manual) Lymphocytes % (Manual) Monocytes % (Manual) Basophils % (Manual) Seg Neutrophils # Seg Neutrophils # Man Lymphocytes # (Manual) Monocytes # (Manual) Eosinophils # (Manual) Basophils # (Manual) PT INR D-Dimer ABG pH POC ABG pCO2 POC ABG pO2 ABG pO2 ABG HCO3 ABG O2 Saturation ABG Base Excess ABG Hemoglobin ABG Oxyhemoglobin ABG Potassium ABG Glucose Oxyhemoglobin Carboxyhemoglobin Sodium Potassium Chloride 97.0 L Carbon Dioxide 37 H BUN Creatinine < 0.2 L Glucose 129 H POC Glucose 109 H 142 H Calcium 8.3 L Ferritin Total Bilirubin Alkaline Phosphatase Lactate Dehydrogenase Total Creatine Kinase CK-MB (CK-2) Rel Index Troponin T C-Reactive Protein Total Protein Albumin Prealbumin LDL Cholesterol Direct Arterial Blood Glucose Arterial Blood Ionized Calcium Urine WBC (Auto) 03/14/20 03/15/20 03/15/20 23:57 05:46 08:06 WBC 19.7 H RBC 3.29 L Hgb 9.1 L Hct 28.0 L MCV MCH RDW 15.9 H Plt Count Lymph % (Auto) Lymph # (Auto) [place] # (Auto) Seg Neutrophils % Seg Neuts % (Manual) Lymphocytes % (Manual) Monocytes % (Manual) Basophils % (Manual) Seg Neutrophils # Seg Neutrophils # Man Lymphocytes # (Manual) Monocytes # (Manual) Eosinophils # (Manual) Basophils # (Manual) PT INR D-Dimer ABG pH POC ABG pCO2 POC ABG pO2 ABG pO2 ABG HCO3 ABG O2 Saturation ABG Base Excess ABG Hemoglobin ABG Oxyhemoglobin ABG Potassium ABG Glucose Oxyhemoglobin Carboxyhemoglobin Sodium Potassium Chloride Carbon Dioxide BUN Creatinine Glucose POC Glucose 157 H 118 H Calcium Ferritin Total Bilirubin Alkaline Phosphatase Lactate Dehydrogenase Total Creatine Kinase CK-MB (CK-2) Rel Index Troponin T C-Reactive Protein Total Protein Albumin Prealbumin LDL Cholesterol Direct Arterial Blood Glucose Arterial Blood Ionized Calcium Urine WBC (Auto) 03/15/20 03/15/20 03/15/20 08:06 12:44 18:09 WBC RBC Hgb Hct MCV MCH RDW Plt Count Lymph % (Auto) Lymph # (Auto) [place] # (Auto) Seg Neutrophils % Seg Neuts % (Manual) Lymphocytes % (Manual) Monocytes % (Manual) Basophils % (Manual) Seg Neutrophils # Seg Neutrophils # Man Lymphocytes # (Manual) Monocytes # (Manual) Eosinophils # (Manual) Basophils # (Manual) PT INR D-Dimer ABG pH POC ABG pCO2 POC ABG pO2 ABG pO2 ABG HCO3 ABG O2 Saturation ABG Base Excess ABG Hemoglobin ABG Oxyhemoglobin ABG Potassium ABG Glucose Oxyhemoglobin Carboxyhemoglobin Sodium 136 L Potassium Chloride 93.6 L Carbon Dioxide 37 H BUN Creatinine < 0.2 L Glucose 132 H POC Glucose 151 H 164 H Calcium Ferritin Total Bilirubin Alkaline Phosphatase Lactate Dehydrogenase Total Creatine Kinase CK-MB (CK-2) Rel Index Troponin T C-Reactive Protein Total Protein Albumin Prealbumin LDL Cholesterol Direct Arterial Blood Glucose Arterial Blood Ionized Calcium Urine WBC (Auto) 03/15/20 03/16/20 03/16/20 23:26 05:39 11:58 WBC RBC Hgb Hct MCV MCH RDW Plt Count Lymph % (Auto) Lymph # (Auto) [place] # (Auto) Seg Neutrophils % Seg Neuts % (Manual) Lymphocytes % (Manual) Monocytes % (Manual) Basophils % (Manual) Seg Neutrophils # Seg Neutrophils # Man Lymphocytes # (Manual) Monocytes # (Manual) Eosinophils # (Manual) Basophils # (Manual) PT INR D-Dimer ABG pH POC ABG pCO2 POC ABG pO2 ABG pO2 ABG HCO3 ABG O2 Saturation ABG Base Excess ABG Hemoglobin ABG Oxyhemoglobin ABG Potassium ABG Glucose Oxyhemoglobin Carboxyhemoglobin Sodium Potassium Chloride Carbon Dioxide BUN Creatinine Glucose POC Glucose 136 H 116 H 109 H Calcium Ferritin Total Bilirubin Alkaline Phosphatase Lactate Dehydrogenase Total Creatine Kinase CK-MB (CK-2) Rel Index Troponin T C-Reactive Protein Total Protein Albumin Prealbumin LDL Cholesterol Direct Arterial Blood Glucose Arterial Blood Ionized Calcium Urine WBC (Auto) 03/16/20 03/17/20 03/17/20 23:56 04:40 04:40 WBC 18.0 H RBC 3.33 L Hgb 9.5 L Hct 28.8 L MCV MCH RDW 16.4 H Plt Count 499 H Lymph % (Auto) Lymph # (Auto) [place] # (Auto) Seg Neutrophils % Seg Neuts % (Manual) 82.0 H Lymphocytes % (Manual) 8.0 L Monocytes % (Manual) Basophils % (Manual) Seg Neutrophils # Seg Neutrophils # Man 14.8 H Lymphocytes # (Manual) Monocytes # (Manual) 1.3 H Eosinophils # (Manual) Basophils # (Manual) 0.2 H PT INR D-Dimer ABG pH POC ABG pCO2 POC ABG pO2 ABG pO2 ABG HCO3 ABG O2 Saturation ABG Base Excess ABG Hemoglobin ABG Oxyhemoglobin ABG Potassium ABG Glucose Oxyhemoglobin Carboxyhemoglobin Sodium Potassium Chloride 97.7 L Carbon Dioxide 32 H BUN Creatinine < 0.2 L Glucose 114 H POC Glucose 131 H Calcium Ferritin Total Bilirubin Alkaline Phosphatase Lactate Dehydrogenase Total Creatine Kinase CK-MB (CK-2) Rel Index Troponin T C-Reactive Protein Total Protein Albumin Prealbumin LDL Cholesterol Direct Arterial Blood Glucose Arterial Blood Ionized Calcium Urine WBC (Auto) 03/18/20 03/18/20 03/18/20 00:21 05:21 11:55 WBC RBC Hgb Hct MCV MCH RDW Plt Count Lymph % (Auto) Lymph # (Auto) [place] # (Auto) Seg Neutrophils % Seg Neuts % (Manual) Lymphocytes % (Manual) Monocytes % (Manual) Basophils % (Manual) Seg Neutrophils # Seg Neutrophils # Man Lymphocytes # (Manual) Monocytes # (Manual) Eosinophils # (Manual) Basophils # (Manual) PT INR D-Dimer ABG pH POC ABG pCO2 POC ABG pO2 ABG pO2 ABG HCO3 ABG O2 Saturation ABG Base Excess ABG Hemoglobin ABG Oxyhemoglobin ABG Potassium ABG Glucose Oxyhemoglobin Carboxyhemoglobin Sodium Potassium Chloride Carbon Dioxide BUN Creatinine Glucose POC Glucose 124 H 138 H 119 H Calcium Ferritin Total Bilirubin Alkaline Phosphatase Lactate Dehydrogenase Total Creatine Kinase CK-MB (CK-2) Rel Index Troponin T C-Reactive Protein Total Protein Albumin Prealbumin LDL Cholesterol Direct Arterial Blood Glucose Arterial Blood Ionized Calcium Urine WBC (Auto) 03/18/20 03/18/20 03/19/20 17:03 23:58 05:24 WBC RBC Hgb Hct MCV MCH RDW Plt Count Lymph % (Auto) Lymph # (Auto) [place] # (Auto) Seg Neutrophils % Seg Neuts % (Manual) Lymphocytes % (Manual) Monocytes % (Manual) Basophils % (Manual) Seg Neutrophils # Seg Neutrophils # Man Lymphocytes # (Manual) Monocytes # (Manual) Eosinophils # (Manual) Basophils # (Manual) PT INR D-Dimer ABG pH POC ABG pCO2 POC ABG pO2 ABG pO2 ABG HCO3 ABG O2 Saturation ABG Base Excess ABG Hemoglobin ABG Oxyhemoglobin ABG Potassium ABG Glucose Oxyhemoglobin Carboxyhemoglobin Sodium Potassium Chloride Carbon Dioxide BUN Creatinine Glucose POC Glucose 128 H 128 H 115 H Calcium Ferritin Total Bilirubin Alkaline Phosphatase Lactate Dehydrogenase Total Creatine Kinase CK-MB (CK-2) Rel Index Troponin T C-Reactive Protein Total Protein Albumin Prealbumin LDL Cholesterol Direct Arterial Blood Glucose Arterial Blood Ionized Calcium Urine WBC (Auto) 03/19/20 03/19/20 03/19/20 08:05 08:05 11:56 WBC 16.8 H RBC 3.36 L Hgb 9.4 L Hct 28.8 L MCV MCH RDW 17.4 H Plt Count 567 H Lymph % (Auto) 7.8 L Lymph # (Auto) [place] # (Auto) 1.2 H Seg Neutrophils % 83.5 H Seg Neuts % (Manual) Lymphocytes % (Manual) Monocytes % (Manual) Basophils % (Manual) Seg Neutrophils # 14.1 H Seg Neutrophils # Man Lymphocytes # (Manual) Monocytes # (Manual) Eosinophils # (Manual) Basophils # (Manual) PT INR D-Dimer ABG pH POC ABG pCO2 POC ABG pO2 ABG pO2 ABG HCO3 ABG O2 Saturation ABG Base Excess ABG Hemoglobin ABG Oxyhemoglobin ABG Potassium ABG Glucose Oxyhemoglobin Carboxyhemoglobin Sodium Potassium Chloride Carbon Dioxide 36 H BUN Creatinine < 0.2 L Glucose 135 H POC Glucose 128 H Calcium Ferritin Total Bilirubin Alkaline Phosphatase Lactate Dehydrogenase Total Creatine Kinase CK-MB (CK-2) Rel Index Troponin T C-Reactive Protein Total Protein Albumin Prealbumin LDL Cholesterol Direct Arterial Blood Glucose Arterial Blood Ionized Calcium Urine WBC (Auto) 03/19/20 03/20/20 03/20/20 23:59 05:12 16:52 WBC RBC Hgb Hct MCV MCH RDW Plt Count Lymph % (Auto) Lymph # (Auto) [place] # (Auto) Seg Neutrophils % Seg Neuts % (Manual) Lymphocytes % (Manual) Monocytes % (Manual) Basophils % (Manual) Seg Neutrophils # Seg Neutrophils # Man Lymphocytes # (Manual) Monocytes # (Manual) Eosinophils # (Manual) Basophils # (Manual) PT INR D-Dimer ABG pH POC ABG pCO2 POC ABG pO2 ABG pO2 ABG HCO3 ABG O2 Saturation ABG Base Excess ABG Hemoglobin ABG Oxyhemoglobin ABG Potassium ABG Glucose Oxyhemoglobin Carboxyhemoglobin Sodium Potassium Chloride Carbon Dioxide BUN Creatinine Glucose POC Glucose 120 H 131 H 124 H Calcium Ferritin Total Bilirubin Alkaline Phosphatase Lactate Dehydrogenase Total Creatine Kinase CK-MB (CK-2) Rel Index Troponin T C-Reactive Protein Total Protein Albumin Prealbumin LDL Cholesterol Direct Arterial Blood Glucose Arterial Blood Ionized Calcium Urine WBC (Auto) 03/20/20 03/21/20 03/21/20 23:35 04:50 07:35 WBC 15.2 H RBC 3.39 L Hgb 9.4 L Hct 29.4 L MCV MCH RDW 17.6 H Plt Count 518 H Lymph % (Auto) Lymph # (Auto) [place] # (Auto) Seg Neutrophils % Seg Neuts % (Manual) 83.0 H Lymphocytes % (Manual) 10.0 L Monocytes % (Manual) Basophils % (Manual) 2.0 H Seg Neutrophils # Seg Neutrophils # Man 12.6 H Lymphocytes # (Manual) Monocytes # (Manual) Eosinophils # (Manual) Basophils # (Manual) 0.3 H PT INR D-Dimer ABG pH POC ABG pCO2 POC ABG pO2 ABG pO2 ABG HCO3 ABG O2 Saturation ABG Base Excess ABG Hemoglobin ABG Oxyhemoglobin ABG Potassium ABG Glucose Oxyhemoglobin Carboxyhemoglobin Sodium Potassium Chloride Carbon Dioxide BUN Creatinine Glucose POC Glucose 125 H 127 H Calcium Ferritin Total Bilirubin Alkaline Phosphatase Lactate Dehydrogenase Total Creatine Kinase CK-MB (CK-2) Rel Index Troponin T C-Reactive Protein Total Protein Albumin Prealbumin LDL Cholesterol Direct Arterial Blood Glucose Arterial Blood Ionized Calcium Urine WBC (Auto) 03/21/20 03/21/20 03/21/20 07:35 11:45 17:22 WBC RBC Hgb Hct MCV MCH RDW Plt Count Lymph % (Auto) Lymph # (Auto) [place] # (Auto) Seg Neutrophils % Seg Neuts % (Manual) Lymphocytes % (Manual) Monocytes % (Manual) Basophils % (Manual) Seg Neutrophils # Seg Neutrophils # Man Lymphocytes # (Manual) Monocytes # (Manual) Eosinophils # (Manual) Basophils # (Manual) PT INR D-Dimer ABG pH POC ABG pCO2 POC ABG pO2 ABG pO2 ABG HCO3 ABG O2 Saturation ABG Base Excess ABG Hemoglobin ABG Oxyhemoglobin ABG Potassium ABG Glucose Oxyhemoglobin Carboxyhemoglobin Sodium 136 L Potassium Chloride 97.7 L Carbon Dioxide 32 H BUN Creatinine < 0.2 L Glucose 103 H POC Glucose 126 H 120 H Calcium Ferritin Total Bilirubin Alkaline Phosphatase Lactate Dehydrogenase Total Creatine Kinase CK-MB (CK-2) Rel Index Troponin T C-Reactive Protein Total Protein Albumin Prealbumin LDL Cholesterol Direct Arterial Blood Glucose Arterial Blood Ionized Calcium Urine WBC (Auto) 03/22/20 03/22/20 03/22/20 05:09 06:34 06:34 WBC 17.5 H RBC 3.52 L Hgb 10.0 L Hct 30.7 L MCV MCH RDW 17.5 H Plt Count 499 H Lymph % (Auto) Lymph # (Auto) [place] # (Auto) Seg Neutrophils % Seg Neuts % (Manual) 80.0 H Lymphocytes % (Manual) 10.0 L Monocytes % (Manual) Basophils % (Manual) Seg Neutrophils # Seg Neutrophils # Man 14.0 H Lymphocytes # (Manual) Monocytes # (Manual) Eosinophils # (Manual) Basophils # (Manual) PT INR D-Dimer ABG pH POC ABG pCO2 POC ABG pO2 ABG pO2 ABG HCO3 ABG O2 Saturation ABG Base Excess ABG Hemoglobin ABG Oxyhemoglobin ABG Potassium ABG Glucose Oxyhemoglobin Carboxyhemoglobin Sodium Potassium Chloride 96.6 L Carbon Dioxide 38 H BUN Creatinine < 0.2 L Glucose 139 H POC Glucose 125 H Calcium Ferritin Total Bilirubin Alkaline Phosphatase Lactate Dehydrogenase Total Creatine Kinase CK-MB (CK-2) Rel Index Troponin T C-Reactive Protein Total Protein Albumin Prealbumin LDL Cholesterol Direct Arterial Blood Glucose Arterial Blood Ionized Calcium Urine WBC (Auto) 03/22/20 03/22/20 03/22/20 11:45 18:00 23:32 WBC RBC Hgb Hct MCV MCH RDW Plt Count Lymph % (Auto) Lymph # (Auto) [place] # (Auto) Seg Neutrophils % Seg Neuts % (Manual) Lymphocytes % (Manual) Monocytes % (Manual) Basophils % (Manual) Seg Neutrophils # Seg Neutrophils # Man Lymphocytes # (Manual) Monocytes # (Manual) Eosinophils # (Manual) Basophils # (Manual) PT INR D-Dimer ABG pH POC ABG pCO2 POC ABG pO2 ABG pO2 ABG HCO3 ABG O2 Saturation ABG Base Excess ABG Hemoglobin ABG Oxyhemoglobin ABG Potassium ABG Glucose Oxyhemoglobin Carboxyhemoglobin Sodium Potassium Chloride Carbon Dioxide BUN Creatinine Glucose POC Glucose 135 H 133 H Calcium Ferritin Total Bilirubin Alkaline Phosphatase Lactate Dehydrogenase Total Creatine Kinase CK-MB (CK-2) Rel Index Troponin T 0.113 H* C-Reactive Protein Total Protein Albumin Prealbumin LDL Cholesterol Direct Arterial Blood Glucose Arterial Blood Ionized Calcium Urine WBC (Auto) 03/23/20 03/23/20 03/23/20 01:47 06:21 07:57 WBC RBC Hgb Hct MCV MCH RDW Plt Count Lymph % (Auto) Lymph # (Auto) [place] # (Auto) Seg Neutrophils % Seg Neuts % (Manual) Lymphocytes % (Manual) Monocytes % (Manual) Basophils % (Manual) Seg Neutrophils # Seg Neutrophils # Man Lymphocytes # (Manual) Monocytes # (Manual) Eosinophils # (Manual) Basophils # (Manual) PT INR D-Dimer ABG pH POC ABG pCO2 POC ABG pO2 ABG pO2 ABG HCO3 ABG O2 Saturation ABG Base Excess ABG Hemoglobin ABG Oxyhemoglobin ABG Potassium ABG Glucose Oxyhemoglobin Carboxyhemoglobin Sodium Potassium Chloride Carbon Dioxide BUN Creatinine Glucose POC Glucose 130 H Calcium Ferritin Total Bilirubin Alkaline Phosphatase Lactate Dehydrogenase Total Creatine Kinase CK-MB (CK-2) Rel Index Troponin T 0.143 H* D 0.105 H* D C-Reactive Protein Total Protein Albumin Prealbumin LDL Cholesterol Direct Arterial Blood Glucose Arterial Blood Ionized Calcium Urine WBC (Auto) 03/23/20 03/24/20 03/24/20 12:02 05:33 07:15 WBC 18.0 H RBC Hgb 11.0 L Hct 34.0 L MCV MCH RDW 17.4 H Plt Count 520 H Lymph % (Auto) Lymph # (Auto) [place] # (Auto) Seg Neutrophils % Seg Neuts % (Manual) 88.0 H Lymphocytes % (Manual) 7.0 L Monocytes % (Manual) Basophils % (Manual) Seg Neutrophils # Seg Neutrophils # Man 15.8 H Lymphocytes # (Manual) Monocytes # (Manual) Eosinophils # (Manual) Basophils # (Manual) PT INR D-Dimer ABG pH POC ABG pCO2 POC ABG pO2 ABG pO2 ABG HCO3 ABG O2 Saturation ABG Base Excess ABG Hemoglobin ABG Oxyhemoglobin ABG Potassium ABG Glucose Oxyhemoglobin Carboxyhemoglobin Sodium Potassium Chloride Carbon Dioxide BUN Creatinine Glucose POC Glucose 137 H 112 H Calcium Ferritin Total Bilirubin Alkaline Phosphatase Lactate Dehydrogenase Total Creatine Kinase CK-MB (CK-2) Rel Index Troponin T C-Reactive Protein Total Protein Albumin Prealbumin LDL Cholesterol Direct Arterial Blood Glucose Arterial Blood Ionized Calcium Urine WBC (Auto) 03/24/20 03/24/20 03/24/20 07:15 11:22 23:30 WBC RBC Hgb Hct MCV MCH RDW Plt Count Lymph % (Auto) Lymph # (Auto) [place] # (Auto) Seg Neutrophils % Seg Neuts % (Manual) Lymphocytes % (Manual) Monocytes % (Manual) Basophils % (Manual) Seg Neutrophils # Seg Neutrophils # Man Lymphocytes # (Manual) Monocytes # (Manual) Eosinophils # (Manual) Basophils # (Manual) PT INR D-Dimer ABG pH POC ABG pCO2 POC ABG pO2 ABG pO2 ABG HCO3 ABG O2 Saturation ABG Base Excess ABG Hemoglobin ABG Oxyhemoglobin ABG Potassium ABG Glucose Oxyhemoglobin Carboxyhemoglobin Sodium Potassium Chloride 96.6 L Carbon Dioxide 38 H BUN Creatinine < 0.2 L Glucose 141 H POC Glucose 130 H 120 H Calcium Ferritin Total Bilirubin Alkaline Phosphatase Lactate Dehydrogenase Total Creatine Kinase CK-MB (CK-2) Rel Index Troponin T C-Reactive Protein Total Protein Albumin Prealbumin LDL Cholesterol Direct Arterial Blood Glucose Arterial Blood Ionized Calcium Urine WBC (Auto) 03/25/20 03/25/20 03/25/20 05:48 17:53 23:18 WBC RBC Hgb Hct MCV MCH RDW Plt Count Lymph % (Auto) Lymph # (Auto) [place] # (Auto) Seg Neutrophils % Seg Neuts % (Manual) Lymphocytes % (Manual) Monocytes % (Manual) Basophils % (Manual) Seg Neutrophils # Seg Neutrophils # Man Lymphocytes # (Manual) Monocytes # (Manual) Eosinophils # (Manual) Basophils # (Manual) PT INR D-Dimer ABG pH POC ABG pCO2 POC ABG pO2 ABG pO2 ABG HCO3 ABG O2 Saturation ABG Base Excess ABG Hemoglobin ABG Oxyhemoglobin ABG Potassium ABG Glucose Oxyhemoglobin Carboxyhemoglobin Sodium Potassium Chloride Carbon Dioxide BUN Creatinine Glucose POC Glucose 124 H 109 H 131 H Calcium Ferritin Total Bilirubin Alkaline Phosphatase Lactate Dehydrogenase Total Creatine Kinase CK-MB (CK-2) Rel Index Troponin T C-Reactive Protein Total Protein Albumin Prealbumin LDL Cholesterol Direct Arterial Blood Glucose Arterial Blood Ionized Calcium Urine WBC (Auto) 03/26/20 03/26/20 03/26/20 05:21 08:49 08:49 WBC 19.7 H RBC Hgb 10.7 L Hct 33.5 L MCV MCH 27 L RDW 17.1 H Plt Count 480 H Lymph % (Auto) 5.7 L Lymph # (Auto) 1.1 L [place] # (Auto) 1.2 H Seg Neutrophils % 87.7 H Seg Neuts % (Manual) Lymphocytes % (Manual) Monocytes % (Manual) Basophils % (Manual) Seg Neutrophils # 17.2 H Seg Neutrophils # Man Lymphocytes # (Manual) Monocytes # (Manual) Eosinophils # (Manual) Basophils # (Manual) PT INR D-Dimer ABG pH POC ABG pCO2 POC ABG pO2 ABG pO2 ABG HCO3 ABG O2 Saturation ABG Base Excess ABG Hemoglobin ABG Oxyhemoglobin ABG Potassium ABG Glucose Oxyhemoglobin Carboxyhemoglobin Sodium Potassium Chloride 97.2 L Carbon Dioxide 36 H BUN Creatinine < 0.2 L Glucose 127 H POC Glucose 116 H Calcium Ferritin Total Bilirubin Alkaline Phosphatase Lactate Dehydrogenase Total Creatine Kinase CK-MB (CK-2) Rel Index Troponin T C-Reactive Protein Total Protein Albumin Prealbumin LDL Cholesterol Direct Arterial Blood Glucose Arterial Blood Ionized Calcium Urine WBC (Auto) 03/26/20 03/26/20 03/26/20 11:38 18:44 23:06 WBC RBC Hgb Hct MCV MCH RDW Plt Count Lymph % (Auto) Lymph # (Auto) [place] # (Auto) Seg Neutrophils % Seg Neuts % (Manual) Lymphocytes % (Manual) Monocytes % (Manual) Basophils % (Manual) Seg Neutrophils # Seg Neutrophils # Man Lymphocytes # (Manual) Monocytes # (Manual) Eosinophils # (Manual) Basophils # (Manual) PT INR D-Dimer ABG pH POC ABG pCO2 POC ABG pO2 ABG pO2 ABG HCO3 ABG O2 Saturation ABG Base Excess ABG Hemoglobin ABG Oxyhemoglobin ABG Potassium ABG Glucose Oxyhemoglobin Carboxyhemoglobin Sodium Potassium Chloride Carbon Dioxide BUN Creatinine Glucose POC Glucose 120 H 111 H 134 H Calcium Ferritin Total Bilirubin Alkaline Phosphatase Lactate Dehydrogenase Total Creatine Kinase CK-MB (CK-2) Rel Index Troponin T C-Reactive Protein Total Protein Albumin Prealbumin LDL Cholesterol Direct Arterial Blood Glucose Arterial Blood Ionized Calcium Urine WBC (Auto) 03/27/20 03/27/20 03/27/20 05:41 05:59 05:59 WBC 18.6 H RBC Hgb 10.1 L Hct 31.4 L MCV MCH RDW 17.2 H Plt Count Lymph % (Auto) 8.0 L Lymph # (Auto) [place] # (Auto) 1.2 H Seg Neutrophils % 84.7 H Seg Neuts % (Manual) Lymphocytes % (Manual) Monocytes % (Manual) Basophils % (Manual) Seg Neutrophils # 15.8 H Seg Neutrophils # Man Lymphocytes # (Manual) Monocytes # (Manual) Eosinophils # (Manual) Basophils # (Manual) PT INR D-Dimer ABG pH POC ABG pCO2 POC ABG pO2 ABG pO2 ABG HCO3 ABG O2 Saturation ABG Base Excess ABG Hemoglobin ABG Oxyhemoglobin ABG Potassium ABG Glucose Oxyhemoglobin Carboxyhemoglobin Sodium Potassium Chloride Carbon Dioxide 34 H BUN Creatinine < 0.2 L Glucose 127 H POC Glucose 129 H Calcium Ferritin Total Bilirubin Alkaline Phosphatase Lactate Dehydrogenase Total Creatine Kinase CK-MB (CK-2) Rel Index Troponin T C-Reactive Protein Total Protein Albumin Prealbumin LDL Cholesterol Direct Arterial Blood Glucose Arterial Blood Ionized Calcium Urine WBC (Auto) 03/27/20 03/27/20 03/28/20 17:28 23:22 05:23 WBC RBC Hgb Hct MCV MCH RDW Plt Count Lymph % (Auto) Lymph # (Auto) [place] # (Auto) Seg Neutrophils % Seg Neuts % (Manual) Lymphocytes % (Manual) Monocytes % (Manual) Basophils % (Manual) Seg Neutrophils # Seg Neutrophils # Man Lymphocytes # (Manual) Monocytes # (Manual) Eosinophils # (Manual) Basophils # (Manual) PT INR D-Dimer ABG pH POC ABG pCO2 POC ABG pO2 ABG pO2 ABG HCO3 ABG O2 Saturation ABG Base Excess ABG Hemoglobin ABG Oxyhemoglobin ABG Potassium ABG Glucose Oxyhemoglobin Carboxyhemoglobin Sodium Potassium Chloride Carbon Dioxide BUN Creatinine Glucose POC Glucose 108 H 119 H 129 H Calcium Ferritin Total Bilirubin Alkaline Phosphatase Lactate Dehydrogenase Total Creatine Kinase CK-MB (CK-2) Rel Index Troponin T C-Reactive Protein Total Protein Albumin Prealbumin LDL Cholesterol Direct Arterial Blood Glucose Arterial Blood Ionized Calcium Urine WBC (Auto) 03/28/20 03/28/20 03/28/20 10:28 10:28 11:36 WBC 23.6 H RBC 3.62 L Hgb 10.0 L Hct 30.8 L MCV MCH RDW 16.4 H Plt Count Lymph % (Auto) Lymph # (Auto) [place] # (Auto) Seg Neutrophils % Seg Neuts % (Manual) 89.0 H Lymphocytes % (Manual) 5.0 L Monocytes % (Manual) Basophils % (Manual) Seg Neutrophils # Seg Neutrophils # Man 21.0 H Lymphocytes # (Manual) Monocytes # (Manual) 1.2 H Eosinophils # (Manual) Basophils # (Manual) 0.2 H PT INR D-Dimer ABG pH POC ABG pCO2 POC ABG pO2 ABG pO2 ABG HCO3 ABG O2 Saturation ABG Base Excess ABG Hemoglobin ABG Oxyhemoglobin ABG Potassium ABG Glucose Oxyhemoglobin Carboxyhemoglobin Sodium 134 L Potassium Chloride 94.2 L Carbon Dioxide 35 H BUN Creatinine < 0.2 L Glucose 134 H POC Glucose Calcium Ferritin Total Bilirubin Alkaline Phosphatase Lactate Dehydrogenase Total Creatine Kinase CK-MB (CK-2) Rel Index Troponin T C-Reactive Protein Total Protein Albumin Prealbumin LDL Cholesterol Direct Arterial Blood Glucose Arterial Blood Ionized Calcium Urine WBC (Auto) 39.0 H 03/28/20 03/28/20 03/28/20 11:51 17:08 17:17 WBC RBC Hgb Hct MCV MCH RDW Plt Count Lymph % (Auto) Lymph # (Auto) [place] # (Auto) Seg Neutrophils % Seg Neuts % (Manual) Lymphocytes % (Manual) Monocytes % (Manual) Basophils % (Manual) Seg Neutrophils # Seg Neutrophils # Man Lymphocytes # (Manual) Monocytes # (Manual) Eosinophils # (Manual) Basophils # (Manual) PT INR D-Dimer ABG pH POC ABG pCO2 POC ABG pO2 ABG pO2 ABG HCO3 ABG O2 Saturation ABG Base Excess ABG Hemoglobin ABG Oxyhemoglobin ABG Potassium ABG Glucose Oxyhemoglobin Carboxyhemoglobin Sodium Potassium Chloride Carbon Dioxide BUN Creatinine Glucose POC Glucose 123 H 112 H Calcium Ferritin Total Bilirubin Alkaline Phosphatase Lactate Dehydrogenase Total Creatine Kinase 47 L CK-MB (CK-2) Rel Index 4.6 H Troponin T 0.090 H C-Reactive Protein Total Protein Albumin Prealbumin LDL Cholesterol Direct Arterial Blood Glucose Arterial Blood Ionized Calcium Urine WBC (Auto) 03/28/20 03/29/20 03/29/20 23:22 05:22 10:58 WBC RBC Hgb Hct MCV MCH RDW Plt Count Lymph % (Auto) Lymph # (Auto) [place] # (Auto) Seg Neutrophils % Seg Neuts % (Manual) Lymphocytes % (Manual) Monocytes % (Manual) Basophils % (Manual) Seg Neutrophils # Seg Neutrophils # Man Lymphocytes # (Manual) Monocytes # (Manual) Eosinophils # (Manual) Basophils # (Manual) PT INR D-Dimer ABG pH POC ABG pCO2 POC ABG pO2 ABG pO2 ABG HCO3 ABG O2 Saturation ABG Base Excess ABG Hemoglobin ABG Oxyhemoglobin ABG Potassium ABG Glucose Oxyhemoglobin Carboxyhemoglobin Sodium Potassium Chloride Carbon Dioxide BUN Creatinine Glucose POC Glucose 122 H 116 H 133 H Calcium Ferritin Total Bilirubin Alkaline Phosphatase Lactate Dehydrogenase Total Creatine Kinase CK-MB (CK-2) Rel Index Troponin T C-Reactive Protein Total Protein Albumin Prealbumin LDL Cholesterol Direct Arterial Blood Glucose Arterial Blood Ionized Calcium Urine WBC (Auto) 03/29/20 03/29/20 03/30/20 17:18 23:14 04:57 WBC RBC Hgb Hct MCV MCH RDW Plt Count Lymph % (Auto) Lymph # (Auto) [place] # (Auto) Seg Neutrophils % Seg Neuts % (Manual) Lymphocytes % (Manual) Monocytes % (Manual) Basophils % (Manual) Seg Neutrophils # Seg Neutrophils # Man Lymphocytes # (Manual) Monocytes # (Manual) Eosinophils # (Manual) Basophils # (Manual) PT INR D-Dimer ABG pH POC ABG pCO2 POC ABG pO2 ABG pO2 ABG HCO3 ABG O2 Saturation ABG Base Excess ABG Hemoglobin ABG Oxyhemoglobin ABG Potassium ABG Glucose Oxyhemoglobin Carboxyhemoglobin Sodium Potassium Chloride Carbon Dioxide BUN Creatinine Glucose POC Glucose 111 H 114 H 130 H Calcium Ferritin Total Bilirubin Alkaline Phosphatase Lactate Dehydrogenase Total Creatine Kinase CK-MB (CK-2) Rel Index Troponin T C-Reactive Protein Total Protein Albumin Prealbumin LDL Cholesterol Direct Arterial Blood Glucose Arterial Blood Ionized Calcium Urine WBC (Auto) 03/30/20 03/30/20 03/30/20 11:38 14:47 14:47 WBC 19.9 H RBC Hgb 10.9 L Hct 34.4 L MCV MCH 27 L RDW 16.5 H Plt Count 441 H Lymph % (Auto) 6.4 L Lymph # (Auto) [place] # (Auto) 1.4 H Seg Neutrophils % 86.1 H Seg Neuts % (Manual) Lymphocytes % (Manual) Monocytes % (Manual) Basophils % (Manual) Seg Neutrophils # 17.1 H Seg Neutrophils # Man Lymphocytes # (Manual) Monocytes # (Manual) Eosinophils # (Manual) Basophils # (Manual) PT INR D-Dimer ABG pH POC ABG pCO2 POC ABG pO2 ABG pO2 ABG HCO3 ABG O2 Saturation ABG Base Excess ABG Hemoglobin ABG Oxyhemoglobin ABG Potassium ABG Glucose Oxyhemoglobin Carboxyhemoglobin Sodium 133 L Potassium Chloride 94.6 L Carbon Dioxide 33 H BUN Creatinine < 0.2 L Glucose 194 H POC Glucose 139 H Calcium Ferritin Total Bilirubin Alkaline Phosphatase Lactate Dehydrogenase Total Creatine Kinase CK-MB (CK-2) Rel Index Troponin T C-Reactive Protein Total Protein Albumin 2.8 L Prealbumin LDL Cholesterol Direct Arterial Blood Glucose Arterial Blood Ionized Calcium Urine WBC (Auto) 03/30/20 03/31/20 03/31/20 17:07 05:02 15:21 WBC RBC Hgb Hct MCV MCH RDW Plt Count Lymph % (Auto) Lymph # (Auto) [place] # (Auto) Seg Neutrophils % Seg Neuts % (Manual) Lymphocytes % (Manual) Monocytes % (Manual) Basophils % (Manual) Seg Neutrophils # Seg Neutrophils # Man Lymphocytes # (Manual) Monocytes # (Manual) Eosinophils # (Manual) Basophils # (Manual) PT INR D-Dimer ABG pH POC ABG pCO2 POC ABG pO2 ABG pO2 ABG HCO3 ABG O2 Saturation ABG Base Excess ABG Hemoglobin ABG Oxyhemoglobin ABG Potassium ABG Glucose Oxyhemoglobin Carboxyhemoglobin Sodium Potassium Chloride Carbon Dioxide BUN Creatinine Glucose POC Glucose 163 H 108 H 110 H Calcium Ferritin Total Bilirubin Alkaline Phosphatase Lactate Dehydrogenase Total Creatine Kinase CK-MB (CK-2) Rel Index Troponin T C-Reactive Protein Total Protein Albumin Prealbumin LDL Cholesterol Direct Arterial Blood Glucose Arterial Blood Ionized Calcium Urine WBC (Auto) 03/31/20 03/31/20 04/01/20 17:58 23:19 05:09 WBC RBC Hgb Hct MCV MCH RDW Plt Count Lymph % (Auto) Lymph # (Auto) [place] # (Auto) Seg Neutrophils % Seg Neuts % (Manual) Lymphocytes % (Manual) Monocytes % (Manual) Basophils % (Manual) Seg Neutrophils # Seg Neutrophils # Man Lymphocytes # (Manual) Monocytes # (Manual) Eosinophils # (Manual) Basophils # (Manual) PT INR D-Dimer ABG pH POC ABG pCO2 POC ABG pO2 ABG pO2 ABG HCO3 ABG O2 Saturation ABG Base Excess ABG Hemoglobin ABG Oxyhemoglobin ABG Potassium ABG Glucose Oxyhemoglobin Carboxyhemoglobin Sodium Potassium Chloride Carbon Dioxide BUN Creatinine Glucose POC Glucose 110 H 131 H 124 H Calcium Ferritin Total Bilirubin Alkaline Phosphatase Lactate Dehydrogenase Total Creatine Kinase CK-MB (CK-2) Rel Index Troponin T C-Reactive Protein Total Protein Albumin Prealbumin LDL Cholesterol Direct Arterial Blood Glucose Arterial Blood Ionized Calcium Urine WBC (Auto) 04/01/20 04/01/20 04/01/20 11:50 17:01 23:21 WBC RBC Hgb Hct MCV MCH RDW Plt Count Lymph % (Auto) Lymph # (Auto) [place] # (Auto) Seg Neutrophils % Seg Neuts % (Manual) Lymphocytes % (Manual) Monocytes % (Manual) Basophils % (Manual) Seg Neutrophils # Seg Neutrophils # Man Lymphocytes # (Manual) Monocytes # (Manual) Eosinophils # (Manual) Basophils # (Manual) PT INR D-Dimer ABG pH POC ABG pCO2 POC ABG pO2 ABG pO2 ABG HCO3 ABG O2 Saturation ABG Base Excess ABG Hemoglobin ABG Oxyhemoglobin ABG Potassium ABG Glucose Oxyhemoglobin Carboxyhemoglobin Sodium Potassium Chloride Carbon Dioxide BUN Creatinine Glucose POC Glucose 136 H 115 H 124 H Calcium Ferritin Total Bilirubin Alkaline Phosphatase Lactate Dehydrogenase Total Creatine Kinase CK-MB (CK-2) Rel Index Troponin T C-Reactive Protein Total Protein Albumin Prealbumin LDL Cholesterol Direct Arterial Blood Glucose Arterial Blood Ionized Calcium Urine WBC (Auto) 04/02/20 04/02/20 04/02/20 05:27 11:58 17:58 WBC RBC Hgb Hct MCV MCH RDW Plt Count Lymph % (Auto) Lymph # (Auto) [place] # (Auto) Seg Neutrophils % Seg Neuts % (Manual) Lymphocytes % (Manual) Monocytes % (Manual) Basophils % (Manual) Seg Neutrophils # Seg Neutrophils # Man Lymphocytes # (Manual) Monocytes # (Manual) Eosinophils # (Manual) Basophils # (Manual) PT INR D-Dimer ABG pH POC ABG pCO2 POC ABG pO2 ABG pO2 ABG HCO3 ABG O2 Saturation ABG Base Excess ABG Hemoglobin ABG Oxyhemoglobin ABG Potassium ABG Glucose Oxyhemoglobin Carboxyhemoglobin Sodium Potassium Chloride Carbon Dioxide BUN Creatinine Glucose POC Glucose 117 H 133 H 122 H Calcium Ferritin Total Bilirubin Alkaline Phosphatase Lactate Dehydrogenase Total Creatine Kinase CK-MB (CK-2) Rel Index Troponin T C-Reactive Protein Total Protein Albumin Prealbumin LDL Cholesterol Direct Arterial Blood Glucose Arterial Blood Ionized Calcium Urine WBC (Auto) 04/02/20 04/03/20 04/03/20 23:12 05:11 11:11 WBC RBC Hgb Hct MCV MCH RDW Plt Count Lymph % (Auto) Lymph # (Auto) [place] # (Auto) Seg Neutrophils % Seg Neuts % (Manual) Lymphocytes % (Manual) Monocytes % (Manual) Basophils % (Manual) Seg Neutrophils # Seg Neutrophils # Man Lymphocytes # (Manual) Monocytes # (Manual) Eosinophils # (Manual) Basophils # (Manual) PT INR D-Dimer ABG pH POC ABG pCO2 POC ABG pO2 ABG pO2 ABG HCO3 ABG O2 Saturation ABG Base Excess ABG Hemoglobin ABG Oxyhemoglobin ABG Potassium ABG Glucose Oxyhemoglobin Carboxyhemoglobin Sodium Potassium Chloride Carbon Dioxide BUN Creatinine Glucose POC Glucose 130 H 139 H 136 H Calcium Ferritin Total Bilirubin Alkaline Phosphatase Lactate Dehydrogenase Total Creatine Kinase CK-MB (CK-2) Rel Index Troponin T C-Reactive Protein Total Protein Albumin Prealbumin LDL Cholesterol Direct Arterial Blood Glucose Arterial Blood Ionized Calcium Urine WBC (Auto) 04/03/20 04/03/20 04/04/20 16:51 23:25 05:29 WBC RBC Hgb Hct MCV MCH RDW Plt Count Lymph % (Auto) Lymph # (Auto) [place] # (Auto) Seg Neutrophils % Seg Neuts % (Manual) Lymphocytes % (Manual) Monocytes % (Manual) Basophils % (Manual) Seg Neutrophils # Seg Neutrophils # Man Lymphocytes # (Manual) Monocytes # (Manual) Eosinophils # (Manual) Basophils # (Manual) PT INR D-Dimer ABG pH POC ABG pCO2 POC ABG pO2 ABG pO2 ABG HCO3 ABG O2 Saturation ABG Base Excess ABG Hemoglobin ABG Oxyhemoglobin ABG Potassium ABG Glucose Oxyhemoglobin Carboxyhemoglobin Sodium Potassium Chloride Carbon Dioxide BUN Creatinine Glucose POC Glucose 118 H 111 H 126 H Calcium Ferritin Total Bilirubin Alkaline Phosphatase Lactate Dehydrogenase Total Creatine Kinase CK-MB (CK-2) Rel Index Troponin T C-Reactive Protein Total Protein Albumin Prealbumin LDL Cholesterol Direct Arterial Blood Glucose Arterial Blood Ionized Calcium Urine WBC (Auto) 04/04/20 04/04/20 04/04/20 11:47 17:41 23:05 WBC RBC Hgb Hct MCV MCH RDW Plt Count Lymph % (Auto) Lymph # (Auto) [place] # (Auto) Seg Neutrophils % Seg Neuts % (Manual) Lymphocytes % (Manual) Monocytes % (Manual) Basophils % (Manual) Seg Neutrophils # Seg Neutrophils # Man Lymphocytes # (Manual) Monocytes # (Manual) Eosinophils # (Manual) Basophils # (Manual) PT INR D-Dimer ABG pH POC ABG pCO2 POC ABG pO2 ABG pO2 ABG HCO3 ABG O2 Saturation ABG Base Excess ABG Hemoglobin ABG Oxyhemoglobin ABG Potassium ABG Glucose Oxyhemoglobin Carboxyhemoglobin Sodium Potassium Chloride Carbon Dioxide BUN Creatinine Glucose POC Glucose 123 H 120 H 119 H Calcium Ferritin Total Bilirubin Alkaline Phosphatase Lactate Dehydrogenase Total Creatine Kinase CK-MB (CK-2) Rel Index Troponin T C-Reactive Protein Total Protein Albumin Prealbumin LDL Cholesterol Direct Arterial Blood Glucose Arterial Blood Ionized Calcium Urine WBC (Auto) 04/05/20 04/05/20 04/05/20 05:14 12:16 18:48 WBC RBC Hgb Hct MCV MCH RDW Plt Count Lymph % (Auto) Lymph # (Auto) [place] # (Auto) Seg Neutrophils % Seg Neuts % (Manual) Lymphocytes % (Manual) Monocytes % (Manual) Basophils % (Manual) Seg Neutrophils # Seg Neutrophils # Man Lymphocytes # (Manual) Monocytes # (Manual) Eosinophils # (Manual) Basophils # (Manual) PT INR D-Dimer ABG pH POC ABG pCO2 POC ABG pO2 ABG pO2 ABG HCO3 ABG O2 Saturation ABG Base Excess ABG Hemoglobin ABG Oxyhemoglobin ABG Potassium ABG Glucose Oxyhemoglobin Carboxyhemoglobin Sodium Potassium Chloride Carbon Dioxide BUN Creatinine Glucose POC Glucose 123 H 148 H 106 H Calcium Ferritin Total Bilirubin Alkaline Phosphatase Lactate Dehydrogenase Total Creatine Kinase CK-MB (CK-2) Rel Index Troponin T C-Reactive Protein Total Protein Albumin Prealbumin LDL Cholesterol Direct Arterial Blood Glucose Arterial Blood Ionized Calcium Urine WBC (Auto) 04/06/20 04/06/20 04/06/20 00:47 03:26 08:24 WBC RBC Hgb Hct MCV MCH RDW Plt Count Lymph % (Auto) Lymph # (Auto) [place] # (Auto) Seg Neutrophils % Seg Neuts % (Manual) Lymphocytes % (Manual) Monocytes % (Manual) Basophils % (Manual) Seg Neutrophils # Seg Neutrophils # Man Lymphocytes # (Manual) Monocytes # (Manual) Eosinophils # (Manual) Basophils # (Manual) PT INR D-Dimer ABG pH POC ABG pCO2 POC ABG pO2 ABG pO2 ABG HCO3 ABG O2 Saturation ABG Base Excess ABG Hemoglobin ABG Oxyhemoglobin ABG Potassium ABG Glucose Oxyhemoglobin Carboxyhemoglobin Sodium Potassium Chloride Carbon Dioxide BUN Creatinine Glucose POC Glucose 129 H 134 H 131 H Calcium Ferritin Total Bilirubin Alkaline Phosphatase Lactate Dehydrogenase Total Creatine Kinase CK-MB (CK-2) Rel Index Troponin T C-Reactive Protein Total Protein Albumin Prealbumin LDL Cholesterol Direct Arterial Blood Glucose Arterial Blood Ionized Calcium Urine WBC (Auto) 04/06/20 04/06/20 04/06/20 11:16 16:27 23:01 WBC RBC Hgb Hct MCV MCH RDW Plt Count Lymph % (Auto) Lymph # (Auto) [place] # (Auto) Seg Neutrophils % Seg Neuts % (Manual) Lymphocytes % (Manual) Monocytes % (Manual) Basophils % (Manual) Seg Neutrophils # Seg Neutrophils # Man Lymphocytes # (Manual) Monocytes # (Manual) Eosinophils # (Manual) Basophils # (Manual) PT INR D-Dimer ABG pH POC ABG pCO2 POC ABG pO2 ABG pO2 ABG HCO3 ABG O2 Saturation ABG Base Excess ABG Hemoglobin ABG Oxyhemoglobin ABG Potassium ABG Glucose Oxyhemoglobin Carboxyhemoglobin Sodium Potassium Chloride Carbon Dioxide BUN Creatinine Glucose POC Glucose 131 H 107 H 125 H Calcium Ferritin Total Bilirubin Alkaline Phosphatase Lactate Dehydrogenase Total Creatine Kinase CK-MB (CK-2) Rel Index Troponin T C-Reactive Protein Total Protein Albumin Prealbumin LDL Cholesterol Direct Arterial Blood Glucose Arterial Blood Ionized Calcium Urine WBC (Auto) 04/07/20 04/07/20 04/07/20 05:24 12:41 17:40 WBC RBC Hgb Hct MCV MCH RDW Plt Count Lymph % (Auto) Lymph # (Auto) [place] # (Auto) Seg Neutrophils % Seg Neuts % (Manual) Lymphocytes % (Manual) Monocytes % (Manual) Basophils % (Manual) Seg Neutrophils # Seg Neutrophils # Man Lymphocytes # (Manual) Monocytes # (Manual) Eosinophils # (Manual) Basophils # (Manual) PT INR D-Dimer ABG pH POC ABG pCO2 POC ABG pO2 ABG pO2 ABG HCO3 ABG O2 Saturation ABG Base Excess ABG Hemoglobin ABG Oxyhemoglobin ABG Potassium ABG Glucose Oxyhemoglobin Carboxyhemoglobin Sodium Potassium Chloride Carbon Dioxide BUN Creatinine Glucose POC Glucose 125 H 145 H 123 H Calcium Ferritin Total Bilirubin Alkaline Phosphatase Lactate Dehydrogenase Total Creatine Kinase CK-MB (CK-2) Rel Index Troponin T C-Reactive Protein Total Protein Albumin Prealbumin LDL Cholesterol Direct Arterial Blood Glucose Arterial Blood Ionized Calcium Urine WBC (Auto) 04/07/20 04/08/20 04/08/20 23:22 05:40 11:29 WBC RBC Hgb Hct MCV MCH RDW Plt Count Lymph % (Auto) Lymph # (Auto) [place] # (Auto) Seg Neutrophils % Seg Neuts % (Manual) Lymphocytes % (Manual) Monocytes % (Manual) Basophils % (Manual) Seg Neutrophils # Seg Neutrophils # Man Lymphocytes # (Manual) Monocytes # (Manual) Eosinophils # (Manual) Basophils # (Manual) PT INR D-Dimer ABG pH POC ABG pCO2 POC ABG pO2 ABG pO2 ABG HCO3 ABG O2 Saturation ABG Base Excess ABG Hemoglobin ABG Oxyhemoglobin ABG Potassium ABG Glucose Oxyhemoglobin Carboxyhemoglobin Sodium Potassium Chloride Carbon Dioxide BUN Creatinine Glucose POC Glucose 133 H 125 H 116 H Calcium Ferritin Total Bilirubin Alkaline Phosphatase Lactate Dehydrogenase Total Creatine Kinase CK-MB (CK-2) Rel Index Troponin T C-Reactive Protein Total Protein Albumin Prealbumin LDL Cholesterol Direct Arterial Blood Glucose Arterial Blood Ionized Calcium Urine WBC (Auto) 04/08/20 04/09/20 04/09/20 17:43 05:47 12:22 WBC RBC Hgb Hct MCV MCH RDW Plt Count Lymph % (Auto) Lymph # (Auto) [place] # (Auto) Seg Neutrophils % Seg Neuts % (Manual) Lymphocytes % (Manual) Monocytes % (Manual) Basophils % (Manual) Seg Neutrophils # Seg Neutrophils # Man Lymphocytes # (Manual) Monocytes # (Manual) Eosinophils # (Manual) Basophils # (Manual) PT INR D-Dimer ABG pH POC ABG pCO2 POC ABG pO2 ABG pO2 ABG HCO3 ABG O2 Saturation ABG Base Excess ABG Hemoglobin ABG Oxyhemoglobin ABG Potassium ABG Glucose Oxyhemoglobin Carboxyhemoglobin Sodium Potassium Chloride Carbon Dioxide BUN Creatinine Glucose POC Glucose 123 H 108 H 116 H Calcium Ferritin Total Bilirubin Alkaline Phosphatase Lactate Dehydrogenase Total Creatine Kinase CK-MB (CK-2) Rel Index Troponin T C-Reactive Protein Total Protein Albumin Prealbumin LDL Cholesterol Direct Arterial Blood Glucose Arterial Blood Ionized Calcium Urine WBC (Auto) 04/09/20 04/09/20 04/10/20 17:24 23:52 06:10 WBC RBC Hgb Hct MCV MCH RDW Plt Count Lymph % (Auto) Lymph # (Auto) [place] # (Auto) Seg Neutrophils % Seg Neuts % (Manual) Lymphocytes % (Manual) Monocytes % (Manual) Basophils % (Manual) Seg Neutrophils # Seg Neutrophils # Man Lymphocytes # (Manual) Monocytes # (Manual) Eosinophils # (Manual) Basophils # (Manual) PT INR D-Dimer ABG pH POC ABG pCO2 POC ABG pO2 ABG pO2 ABG HCO3 ABG O2 Saturation ABG Base Excess ABG Hemoglobin ABG Oxyhemoglobin ABG Potassium ABG Glucose Oxyhemoglobin Carboxyhemoglobin Sodium Potassium Chloride Carbon Dioxide BUN Creatinine Glucose POC Glucose 108 H 126 H 122 H Calcium Ferritin Total Bilirubin Alkaline Phosphatase Lactate Dehydrogenase Total Creatine Kinase CK-MB (CK-2) Rel Index Troponin T C-Reactive Protein Total Protein Albumin Prealbumin LDL Cholesterol Direct Arterial Blood Glucose Arterial Blood Ionized Calcium Urine WBC (Auto) 04/10/20 04/10/20 04/10/20 11:27 18:11 23:24 WBC RBC Hgb Hct MCV MCH RDW Plt Count Lymph % (Auto) Lymph # (Auto) [place] # (Auto) Seg Neutrophils % Seg Neuts % (Manual) Lymphocytes % (Manual) Monocytes % (Manual) Basophils % (Manual) Seg Neutrophils # Seg Neutrophils # Man Lymphocytes # (Manual) Monocytes # (Manual) Eosinophils # (Manual) Basophils # (Manual) PT INR D-Dimer ABG pH POC ABG pCO2 POC ABG pO2 ABG pO2 ABG HCO3 ABG O2 Saturation ABG Base Excess ABG Hemoglobin ABG Oxyhemoglobin ABG Potassium ABG Glucose Oxyhemoglobin Carboxyhemoglobin Sodium Potassium Chloride Carbon Dioxide BUN Creatinine Glucose POC Glucose 129 H 125 H 107 H Calcium Ferritin Total Bilirubin Alkaline Phosphatase Lactate Dehydrogenase Total Creatine Kinase CK-MB (CK-2) Rel Index Troponin T C-Reactive Protein Total Protein Albumin Prealbumin LDL Cholesterol Direct Arterial Blood Glucose Arterial Blood Ionized Calcium Urine WBC (Auto) 04/11/20 04/11/20 04/11/20 05:28 11:46 23:49 WBC RBC Hgb Hct MCV MCH RDW Plt Count Lymph % (Auto) Lymph # (Auto) [place] # (Auto) Seg Neutrophils % Seg Neuts % (Manual) Lymphocytes % (Manual) Monocytes % (Manual) Basophils % (Manual) Seg Neutrophils # Seg Neutrophils # Man Lymphocytes # (Manual) Monocytes # (Manual) Eosinophils # (Manual) Basophils # (Manual) PT INR D-Dimer ABG pH POC ABG pCO2 POC ABG pO2 ABG pO2 ABG HCO3 ABG O2 Saturation ABG Base Excess ABG Hemoglobin ABG Oxyhemoglobin ABG Potassium ABG Glucose Oxyhemoglobin Carboxyhemoglobin Sodium Potassium Chloride Carbon Dioxide BUN Creatinine Glucose POC Glucose 122 H 122 H 116 H Calcium Ferritin Total Bilirubin Alkaline Phosphatase Lactate Dehydrogenase Total Creatine Kinase CK-MB (CK-2) Rel Index Troponin T C-Reactive Protein Total Protein Albumin Prealbumin LDL Cholesterol Direct Arterial Blood Glucose Arterial Blood Ionized Calcium Urine WBC (Auto) 04/12/20 04/12/20 04/12/20 09:07 09:07 11:39 WBC 13.1 H RBC 3.59 L Hgb 9.5 L Hct 29.8 L MCV 83 L MCH 26 L RDW 16.6 H Plt Count 591 H Lymph % (Auto) Lymph # (Auto) [place] # (Auto) Seg Neutrophils % Seg Neuts % (Manual) 86.0 H Lymphocytes % (Manual) 7.0 L Monocytes % (Manual) Basophils % (Manual) Seg Neutrophils # Seg Neutrophils # Man 11.3 H Lymphocytes # (Manual) 0.9 L Monocytes # (Manual) Eosinophils # (Manual) Basophils # (Manual) PT INR D-Dimer ABG pH POC ABG pCO2 POC ABG pO2 ABG pO2 ABG HCO3 ABG O2 Saturation ABG Base Excess ABG Hemoglobin ABG Oxyhemoglobin ABG Potassium ABG Glucose Oxyhemoglobin Carboxyhemoglobin Sodium Potassium Chloride Carbon Dioxide 36 H BUN Creatinine < 0.2 L Glucose 132 H POC Glucose 136 H Calcium Ferritin Total Bilirubin Alkaline Phosphatase Lactate Dehydrogenase Total Creatine Kinase CK-MB (CK-2) Rel Index Troponin T C-Reactive Protein Total Protein Albumin 2.7 L Prealbumin LDL Cholesterol Direct Arterial Blood Glucose Arterial Blood Ionized Calcium Urine WBC (Auto) 04/12/20 04/12/20 04/13/20 18:13 23:07 05:45 WBC RBC Hgb Hct MCV MCH RDW Plt Count Lymph % (Auto) Lymph # (Auto) [place] # (Auto) Seg Neutrophils % Seg Neuts % (Manual) Lymphocytes % (Manual) Monocytes % (Manual) Basophils % (Manual) Seg Neutrophils # Seg Neutrophils # Man Lymphocytes # (Manual) Monocytes # (Manual) Eosinophils # (Manual) Basophils # (Manual) PT INR D-Dimer ABG pH POC ABG pCO2 POC ABG pO2 ABG pO2 ABG HCO3 ABG O2 Saturation ABG Base Excess ABG Hemoglobin ABG Oxyhemoglobin ABG Potassium ABG Glucose Oxyhemoglobin Carboxyhemoglobin Sodium Potassium Chloride Carbon Dioxide BUN Creatinine Glucose POC Glucose 107 H 106 H 125 H Calcium Ferritin Total Bilirubin Alkaline Phosphatase Lactate Dehydrogenase Total Creatine Kinase CK-MB (CK-2) Rel Index Troponin T C-Reactive Protein Total Protein Albumin Prealbumin LDL Cholesterol Direct Arterial Blood Glucose Arterial Blood Ionized Calcium Urine WBC (Auto) 04/13/20 04/13/20 04/13/20 11:18 17:56 23:33 WBC RBC Hgb Hct MCV MCH RDW Plt Count Lymph % (Auto) Lymph # (Auto) [place] # (Auto) Seg Neutrophils % Seg Neuts % (Manual) Lymphocytes % (Manual) Monocytes % (Manual) Basophils % (Manual) Seg Neutrophils # Seg Neutrophils # Man Lymphocytes # (Manual) Monocytes # (Manual) Eosinophils # (Manual) Basophils # (Manual) PT INR D-Dimer ABG pH POC ABG pCO2 POC ABG pO2 ABG pO2 ABG HCO3 ABG O2 Saturation ABG Base Excess ABG Hemoglobin ABG Oxyhemoglobin ABG Potassium ABG Glucose Oxyhemoglobin Carboxyhemoglobin Sodium Potassium Chloride Carbon Dioxide BUN Creatinine Glucose POC Glucose 133 H 110 H 114 H Calcium Ferritin Total Bilirubin Alkaline Phosphatase Lactate Dehydrogenase Total Creatine Kinase CK-MB (CK-2) Rel Index Troponin T C-Reactive Protein Total Protein Albumin Prealbumin LDL Cholesterol Direct Arterial Blood Glucose Arterial Blood Ionized Calcium Urine WBC (Auto) 04/14/20 04/14/20 04/14/20 05:58 11:45 17:48 WBC RBC Hgb Hct MCV MCH RDW Plt Count Lymph % (Auto) Lymph # (Auto) [place] # (Auto) Seg Neutrophils % Seg Neuts % (Manual) Lymphocytes % (Manual) Monocytes % (Manual) Basophils % (Manual) Seg Neutrophils # Seg Neutrophils # Man Lymphocytes # (Manual) Monocytes # (Manual) Eosinophils # (Manual) Basophils # (Manual) PT INR D-Dimer ABG pH POC ABG pCO2 POC ABG pO2 ABG pO2 ABG HCO3 ABG O2 Saturation ABG Base Excess ABG Hemoglobin ABG Oxyhemoglobin ABG Potassium ABG Glucose Oxyhemoglobin Carboxyhemoglobin Sodium Potassium Chloride Carbon Dioxide BUN Creatinine Glucose POC Glucose 115 H 122 H 124 H Calcium Ferritin Total Bilirubin Alkaline Phosphatase Lactate Dehydrogenase Total Creatine Kinase CK-MB (CK-2) Rel Index Troponin T C-Reactive Protein Total Protein Albumin Prealbumin LDL Cholesterol Direct Arterial Blood Glucose Arterial Blood Ionized Calcium Urine WBC (Auto) 12/04/15/20 04/15/20 00:11 05:38 11:31 WBC RBC Hgb Hct MCV MCH RDW Plt Count Lymph % (Auto) Lymph # (Auto) [place] # (Auto) Seg Neutrophils % Seg Neuts % (Manual) Lymphocytes % (Manual) Monocytes % (Manual) Basophils % (Manual) Seg Neutrophils # Seg Neutrophils # Man Lymphocytes # (Manual) Monocytes # (Manual) Eosinophils # (Manual) Basophils # (Manual) PT INR D-Dimer ABG pH POC ABG pCO2 POC ABG pO2 ABG pO2 ABG HCO3 ABG O2 Saturation ABG Base Excess ABG Hemoglobin ABG Oxyhemoglobin ABG Potassium ABG Glucose Oxyhemoglobin Carboxyhemoglobin Sodium Potassium Chloride Carbon Dioxide BUN Creatinine Glucose POC Glucose 120 H 109 H 123 H Calcium Ferritin Total Bilirubin Alkaline Phosphatase Lactate Dehydrogenase Total Creatine Kinase CK-MB (CK-2) Rel Index Troponin T C-Reactive Protein Total Protein Albumin Prealbumin LDL Cholesterol Direct Arterial Blood Glucose Arterial Blood Ionized Calcium Urine WBC (Auto) Allied health notes reviewed: RT
[2020-04-15] MEDS: ALPRAZolam 0.5 MG TAB PO PRN ×2 (14:23→21:51)
[2020-04-15] MEDS: MAGIC MOUTHWASH 30ML PO SCH ×2 (14:39→19:46)
--- NOTE | 2020-04-15 21:18 | Progress Note ---
Assessment and Plan Assessment and plan: --Oral thrush; Nystatin/Magic mouthwash swish and spit --Acute hypoxic hypercapnic respiratory failure; Tracheostomy on ventilatory support Wean as tolerated, continue supportive care Pulmonary following --Constipation; Patient already received Dulcolax suppository and Colace Received milk of magnesia, with relief --History of ALS - Stable --Elevated D-dimers; imaging studies negative for PE and DVT --Bilateral pneumonia; probably community-acquired Completed the treatment, continue supportive care --Sepsis secondary to pneumonia; completed the treatment resolved --Elevated troponin non-ST elevation TX type II Continue current management --Febrile illness; resolved ,secondary to pneumonia Complete antibiotics , resolved --DVT prophylaxis; Lovenox. We will closely monitor the patient and adjust management as needed Plan of care reviewed with the patient's nurse The high probability OF a clinically significant sudden or life-threatening deterioration of the cardiorespiratory system and endocrine system required my full and direct attention, intervention and postoperative management. The aggregate critical care time was 32 minutes. The time is in addition to time spent performing reported procedures but includes the followin: Data review and interpretation 2: Patient assessment and monitoring of vital signs 3: Documentation 4:: Medication orders and management 03/28. Had temp 100.7F. He has been off antibiotics. Will send blood culture, ua, urine culture and chest xray. Had chest pain overnight and trop was elevated as well. Cardiology to evaluate 03/29. Has back pain due to position. He mentions his chest pain is positional. Has no other complaints. Still on mechanical ventilation 03/30. No chest pain today. Labs reviewed. Discussed chest pain with cardiology and team advised no further work up at this time. Can follow up with cardiology in the office after hospitalization 03/31. Lidocaine patch for lower back pain. 04/01. Discharge planning underway. CM notes reviewed. Discussed with daughter 04/02. CM trying to arrange discharge. Continue PSV trials. Discussed with patients significant other 04/04/2020; CM is working for discharge arrangement. Continue PSV trials. 04/05/2020; patient was seen and evaluated this morning and no change from baseline. Continue with PSV trials. Follow with radiologic technology teacher for discharge planning. 04/06/2020;patient was seen and evaluated this morning and no change from baseline. Continue with PSV trials. Follow with radiologic technology teacher for discharge planning. 04/07/2020; patient was seen and evaluated this morning and no change from baseline. Continue with PSV trials. Follow with radiologic technology teacher for discharge planning. 04/08/2020; patient is vent dependent. Discharge is per radiologic technology teacher. 04/09/2020 patient is vent dependent, possible LTAC placement 04/10/2020; tracheostomy on vent, vent dependent pending LTAC placement 04/11/2020; clinically no change, tracheostomy on ventilatory support, wean as tolerated, awaiting placement 04/12/2020; remains on ventilatory support, unable to wean, patient wants to see a speech therapist for sound box However we cannot try that as long as he is on ventilatory support, once he is weaned off vent We will consult speech therapist, plan of care reviewed with the patient and his nurse 04/14/2020; clinically no change, on ventilatory support, complains of cons tipation, milk of magnesia Closely monitor the patient and adjust the management as needed 04/15/2020; patient has some oral thrush on the tongue, will give Magic mouthwash/nystatin swish and spit Wean off vent as tolerated Brief history: 59-year-old male patient with significant past medical history of ALS, presented to ED with worsening shortness of breath since the morning [employer]. Patient was on a trilogy machine for breathing 18/11. EMS arrived, patient had O2 sats in the 80s. EMS attempted to place patient on their CPAP machine, however patient did not tolerate. Patient was admitted to the ICU with diagnosis of acute hypoxic respiratory failure and placed on BiPAP. Patient initially tolerated but later deteriorated with respiratory status. CTA chest showed no PE but significant for bilateral pneumonia. Doppler ultrasound also negative for DVT. COVID-19 test ordered. Due to persistent hypoxia, patient was intubated on 02/26/2020 at 1500. Patient now on mechanical ventilation in the ICU s/p trach placement and now unable to wean off from the mechanical ventilation. Patient now status post PEG placement for tube feeding. Pending long-term placement -LTAC versus SNF History Interval history: I have seen and examined the patient at the bedside in [facility] this morning Patient's chart and medications reviewed, tracheostomy on vent patient is alert and awake wants to go home Complaints of mild oral thrush mainly on the tongue Constipation is relieved with milk of magnesia Vital signs noted Hospitalist Physical - Constitutional Vitals: Temp Pulse Resp BP Pulse Ox 98.5 F 117 H 20 108/73 97 04/15/20 20:17 04/15/20 18:00 04/15/20 19:43 04/15/20 18:00 04/15/20 18:00 General appearance: Present: no acute distress, cachectic, disheveled, other (Cachectic, tracheostomy on vent) - EENT Eyes: Present: PERRL, EOM intact ENT: other (Tracheostomy) - Neck Neck: Present: supple, normal ROM - Respiratory Respiratory effort: normal Respiratory: bilateral: diminished, rhonchi, negative: rales, wheezing - Cardiovascular Rhythm: regular Heart Sounds: Present: S1 & S2 - Extremities Extremities: no ischemia, No edema - Abdominal General gastrointestinal: soft, non-tender, non-distended, normal bowel sounds - Integumentary Integumentary: Present: clear, warm - Psychiatric Psychiatric: appropriate mood/affect, cooperative, other (On vent) - Neurologic Neurologic: other (On vent) HEART Score - HEART Score Troponin: Troponin T 0.090 ng/mL (0.00-0.029) H 03/28/20 17:17 Results - Labs CBC & Chem 7: 04/12/20 09:07 04/12/20 09:07 Labs: Laboratory Last Values WBC 13.1 K/mm3 (4.5-11.0) H 04/12/20 09:07 RBC 3.59 M/mm3 (3.65-5.03) L 04/12/20 09:07 Hgb 9.5 gm/dl (11.8-15.2) L 04/12/20 09:07 Hct 29.8 % (35.5-45.6) L 04/12/20 09:07 MCV 83 fl (84-94) L 04/12/20 09:07 MCH 26 pg (28-32) L 04/12/20 09:07 MCHC 32 % (32-34) 04/12/20 09:07 RDW 16.6 % (13.2-15.2) H 04/12/20 09:07 Plt Count 591 K/mm3 (140-440) H 04/12/20 09:07 Lymph % (Auto) 6.4 % (13.4-35.0) L 03/30/20 14:47 Armstrong % (Auto) 7.2 % (0.0-7.3) 03/30/20 14:47 Eos % (Auto) 0.1 % (0.0-4.3) 03/30/20 14:47 Baso % (Auto) 0.2 % (0.0-1.8) 03/30/20 14:47 Lymph # (Auto) 1.3 K/mm3 (1.2-5.4) 03/30/20 14:47 Armstrong # (Auto) 1.4 K/mm3 (0.0-0.8) H 03/30/20 14:47 Eos # (Auto) 0.0 K/mm3 (0.0-0.4) 03/30/20 14:47 Baso # (Auto) 0.0 K/mm3 (0.0-0.1) 03/30/20 14:47 Add Manual Diff Complete 04/12/20 09:07 Total Counted 100 04/12/20 09:07 Seg Neutrophils % 86.1 % (40.0-70.0) H 03/30/20 14:47 Seg Neuts % (Manual) 86.0 % (40.0-70.0) H 04/12/20 09:07 Band Neutrophils % 0 % 03/28/20 10:28 Lymphocytes % (Manual) 7.0 % (13.4-35.0) L 04/12/20 09:07 Reactive Lymphs % (Man) 0 % 03/28/20 10:28 Monocytes % (Manual) 3.0 % (0.0-7.3) 04/12/20 09:07 Eosinophils % (Manual) 1.0 % (0.0-4.3) 04/12/20 09:07 Basophils % (Manual) 1.0 % (0.0-1.8) 03/28/20 10:28 Metamyelocytes % 3.0 % 04/12/20 09:07 Myelocytes % 0 % 03/28/20 10:28 Promyelocytes % 0 % 03/28/20 10:28 Blast Cells % 0 % 03/28/20 10:28 Nucleated RBC % Not Reportable 04/12/20 09:07 Seg Neutrophils # 17.1 K/mm3 (1.8-7.7) H 03/30/20 14:47 Seg Neutrophils # Man 11.3 K/mm3 (1.8-7.7) H 04/12/20 09:07 Band Neutrophils # 0.0 K/mm3 04/12/20 09:07 Lymphocytes # (Manual) 0.9 K/mm3 (1.2-5.4) L 04/12/20 09:07 Abs React Lymphs (Man) 0.0 K/mm3 04/12/20 09:07 Monocytes # (Manual) 0.4 K/mm3 (0.0-0.8) 04/12/20 09:07 Eosinophils # (Manual) 0.1 K/mm3 (0.0-0.4) 04/12/20 09:07 Basophils # (Manual) 0.0 K/mm3 (0.0-0.1) 04/12/20 09:07 Metamyelocytes # 0.4 K/mm3 04/12/20 09:07 Myelocytes # 0.0 K/mm3 04/12/20 09:07 Promyelocytes # 0.0 K/mm3 04/12/20 09:07 Blast Cells # 0.0 K/mm3 04/12/20 09:07 WBC Morphology Not Reportable 04/12/20 09:07 Hypersegmented Neuts Not Reportable 04/12/20 09:07 Hyposegmented Neuts Not Reportable 04/12/20 09:07 Hypogranular Neuts Not Reportable 04/12/20 09:07 Smudge Cells Not Reportable 04/12/20 09:07 Toxic Granulation Not Reportable 04/12/20 09:07 Toxic Vacuolation Not Reportable 04/12/20 09:07 Dohle Bodies Not Reportable 04/12/20 09:07 Pelger-Huet Anomaly Not Reportable 04/12/20 09:07 Robert Rods Not Reportable 04/12/20 09:07 Platelet Estimate Consistent w auto 04/12/20 09:07 Clumped Platelets Not Reportable 04/12/20 09:07 Plt Clumps, EDTA Not Reportable 04/12/20 09:07 Large Platelets Few 04/12/20 09:07 Giant Platelets Not Reportable 04/12/20 09:07 Platelet Satelliting Not Reportable 04/12/20 09:07 Plt Morphology Comment Not Reportable 04/12/20 09:07 RBC Morphology Not Reportable 04/12/20 09:07 Dimorphic RBCs Not Reportable 04/12/20 09:07 Polychromasia Few 04/12/20 09:07 Hypochromasia Not Reportable 04/12/20 09:07 Poikilocytosis Not Reportable 04/12/20 09:07 Anisocytosis 1+ 04/12/20 09:07 Microcytosis Not Reportable 04/12/20 09:07 Macrocytosis Not Reportable 04/12/20 09:07 Spherocytes Not Reportable 04/12/20 09:07 Pappenheimer Bodies Not Reportable 04/12/20 09:07 Sickle Cells Not Reportable 04/12/20 09:07 Target Cells Not Reportable 04/12/20 09:07 Tear Drop Cells Not Reportable 04/12/20 09:07 Ovalocytes Not Reportable 04/12/20 09:07 Stomatocytes Few 03/17/20 04:40 Helmet Cells Not Reportable 04/12/20 09:07 Gregory-Ilion Bodies Not Reportable 04/12/20 09:07 [place] Rings Not Reportable 04/12/20 09:07 Riaz Cells Not Reportable 04/12/20 09:07 Bite Cells Not Reportable 04/12/20 09:07 Crenated Cell Not Reportable 04/12/20 09:07 Elliptocytes Not Reportable 04/12/20 09:07 Acanthocytes (Spur) Not Reportable 04/12/20 09:07 Rouleaux Not Reportable 04/12/20 09:07 Hemoglobin C Crystals Not Reportable 04/12/20 09:07 Schistocytes Not Reportable 04/12/20 09:07 Malaria parasites Not Reportable 04/12/20 09:07 Colton Bodies Not Reportable 04/12/20 09:07 Hem Pathologist Commnt No 04/12/20 09:07 PT 15.6 Sec. (12.2-14.9) H 02/24/20 09:19 INR 1.21 (0.87-1.13) H 02/24/20 09:19 APTT 25.4 Sec. (24.2-36.6) 02/24/20 09:19 D-Dimer 1311.96 ng/mlDDU (0-234) H 02/24/20 09:19 ABG pH 7.371 (7.320-7.450) 03/08/20 12:34 POC ABG pCO2 63.1 mmHg (32.0-48.0) H 03/08/20 12:34 ABG pCO2 60.1 mm Hg 03/06/20 04:34 POC ABG pO2 90.5 mmHg (83-108) 03/08/20 12:34 ABG pO2 88.6 mm Hg (80.0-90.0) 03/06/20 04:34 POC ABG HCO3 35.7 03/08/20 12:34 ABG HCO3 37.9 mmol/L (20.0-26.0) H 03/06/20 04:34 ABG O2 Saturation 97.0 % (95.0-99.0) 03/06/20 04:34 ABG O2 Content 14.3 (0.0-44) 03/06/20 04:34 POC ABG Base Excess 8.7 03/08/20 12:34 ABG Base Excess 11.4 mmol/L (-2.0-3.0) H 03/06/20 04:34 ABG Hemoglobin 10.9 (12.0-17.5) L 03/08/20 12:34 ABG Oxyhemoglobin 95.9 (94-98) 03/08/20 12:34 ABG Carboxyhemoglobin 1.7 % (0.0-5.0) 03/06/20 04:34 ABG Methemoglobin 0.3 (0.0-1.5) 03/08/20 12:34 ABG Sodium 143.6 mmol/L (136.0-145.0) 03/08/20 12:34 ABG Potassium 3.8 mmol/L (3.40-4.50) 03/08/20 12:34 ABG Chloride 102.0 mmol/L (98-107) 03/08/20 12:34 ABG Glucose 176 mg/dL (65-95) H 03/08/20 12:34 Oxyhemoglobin 94.7 % (95.0-99.0) L 03/06/20 04:34 Carboxyhemoglobin 0.7 (0.5-1.5) 03/08/20 12:34 FiO2 30 03/08/20 12:34 Sodium 139 mmol/L (137-145) 04/12/20 09:07 Potassium 4.1 mmol/L (3.6-5.0) 04/12/20 09:07 Chloride 99.4 mmol/L (98-107) 04/12/20 09:07 Carbon Dioxide 36 mmol/L (22-30) H 04/12/20 09:07 Anion Gap 8 mmol/L 04/12/20 09:07 BUN 17 mg/dL (9-20) 04/12/20 09:07 Creatinine < 0.2 mg/dL (0.8-1.3) L 04/12/20 09:07 Estimated GFR > 60 ml/min 04/12/20 09:07 BUN/Creatinine Ratio 85 % 04/12/20 09:07 Glucose 132 mg/dL (75-100) H 04/12/20 09:07 POC Glucose 111 mg/dL (70-105) H 04/15/20 17:35 Lactic Acid 1.00 mmol/L (0.7-2.0) 02/24/20 12:07 Calcium 8.9 mg/dL (8.4-10.2) 04/12/20 09:07 Phosphorus 3.30 mg/dL (2.5-4.5) 03/29/20 14:35 Magnesium 1.90 mg/dL (1.7-2.3) 04/12/20 09:07 Ferritin 1715.0 ng/mL (30.0-300.0) H 02/24/20 10:01 Total Bilirubin 0.20 mg/dL (0.1-1.2) 04/12/20 09:07 AST 15 units/L (5-40) 04/12/20 09:07 ALT 15 units/L (7-56) 04/12/20 09:07 Alkaline Phosphatase 62 units/L (35-129) 04/12/20 09:07 Lactate Dehydrogenase 303 units/L (91-180) H 02/24/20 09:19 Total Creatine Kinase 47 units/L (55-170) L 03/28/20 17:17 CK-MB (CK-2) 2.2 ng/mL (0.0-4.0) 03/28/20 17:17 CK-MB (CK-2) Rel Index 4.6 (0-4) H 03/28/20 17:17 Troponin T 0.090 ng/mL (0.00-0.029) H 03/28/20 17:17 C-Reactive Protein 4.70 mg/dL (0.00-1.30) H 02/28/20 11:05 NT-Pro-B Natriuret Pep 48.30 pg/mL (0-900) 02/24/20 09:19 Total Protein 6.7 g/dL (6.3-8.2) 04/12/20 09:07 Albumin 2.7 g/dL (3.9-5) L 04/12/20 09:07 Albumin/Globulin Ratio 0.7 % 04/12/20 09:07 Prealbumin 0.090 g/L (0.200-0.400) L 02/28/20 12:54 Triglycerides 34 mg/dL (2-149) 03/22/20 18:00 Cholesterol 104 mg/dL (50-199) 03/22/20 18:00 LDL Cholesterol Direct 54 mg/dL (50-130) 03/22/20 18:00 HDL Cholesterol 40 mg/dL (40-59) 03/22/20 18:00 Cholesterol/HDL Ratio 2.60 % 03/22/20 18:00 Procalcitonin < 0.05 ng/mL (<0.15) 03/28/20 17:12 Arterial Blood Glucose 176 mg/dL (65-95) H 03/08/20 12:34 Arterial Blood Ionized Calcium 4.5 mg/dL (4.6-5.3) L 03/08/20 12:34 Urine Color Yellow (Yellow) 03/28/20 11:36 Urine Turbidity Hazy (Clear) 03/28/20 11:36 Urine pH 5.0 (5.0-7.0) 03/28/20 11:36 Ur Specific [place] 1.026 (1.003-1.030) 03/28/20 11:36 Urine Protein 100 mg/dl mg/dL (Negative) 03/28/20 11:36 Urine Glucose (UA) Neg mg/dL (Negative) 03/28/20 11:36 Urine Ketones Neg mg/dL (Negative) 03/28/20 11:36 Urine Blood Neg (Negative) 03/28/20 11:36 Urine Nitrite Neg (Negative) 03/28/20 11:36 Urine Bilirubin Neg (Negative) 03/28/20 11:36 Urine Urobilinogen 4.0 mg/dL (<2.0) 03/28/20 11:36 Ur Leukocyte Esterase Mod (Negative) 03/28/20 11:36 Urine WBC (Auto) 39.0 /HPF (0.0-6.0) H 03/28/20 11:36 Urine RBC (Auto) 16.0 /HPF (0.0-6.0) 03/28/20 11:36 U Epithel Cells (Auto) < 1.0 /HPF (0-13.0) 03/08/20 08:57 Urine Bacteria (Auto) 2+ /HPF (Negative) 03/28/20 11:36 Urine Mucus 3+ /HPF 03/28/20 11:36 Urine Yeast (Budding) 2+ /HPF 03/28/20 11:36 Vancomycin Trough 8.0 ug/mL (5.0-20.0) 03/04/20 08:59 Coronavirus (PCR) Negative (Negative) 02/25/20 09:03 - Diagnostic Impressions Diagnostic Impressions: Echocardiogram 02/26/20 10:41 Transthoracic Echocardiogram Indication: Elevated Trop BP: 116/75 HR: 85 Conclusions *Global left ventricular wall motion and contractility are within normal limits. *The estimated ejection fraction is 50-55%. *Abnormal left ventricular diastolic filling is observed, consistent with impaired relaxation. *There is no pericardial effusion. Findings Left Ventricle: The left ventricular chamber size is normal. Global left ventricular wall motion and contractility are within normal limits. Global left ventricular systolic function is normal. The estimated ejection fraction is 50-55%. Abnormal left ventricular diastolic filling is observed, consistent with impaired relaxation. Left Atrium: The left atrial chamber size is normal. Right Ventricle: The right ventricular cavity size is normal. Right Atrium: The right atrial cavity size is normal. Aortic Valve: Mild aortic leaflet calcification is visualized. There is no evidence of aortic regurgitation. Mitral Valve: The mitral valve leaflets are mildly thickened. There is no evidence of mitral regurgitation. Tricuspid Valve: The tricuspid valve leaflets are normal. There is trace tricuspid regurgitation. The right ventricular systolic pressure is calculated at 29 mmHg. Pulmonic Valve: The pulmonic valve is not well visualized. Pericardium: There is no pericardial effusion. Aorta: The aorta appears normal. Venous: The inferior vena cava is dilated. There is less than 50% respiratory change in the inferior vena cava dimension. Measurements Chambers 2D Name Value Normal Range IVSd (2D) 0.97 cm (0.6 - 1.1) LVPWd (2D) 0.93 cm (0.6 - 1.1) LVIDd (2D) 4 cm (3.7 - 5.6) LVIDs (2D) 2.73 cm (2 - 3.8) LV FS (2D) 31.67 % - EF Teichholz (2D) 60.23 % - Ao root diameter (2D) 3.51 cm (2 - 3.7) Volumes/Mass Name Value Normal Range LA ESV SP 4CH (A/L) 8.43 ml - LA ESV SP 2CH (A/L) 18.89 ml - LA ESV BP (A/L) 13.02 ml - LA ESV BP (A/L) index 8.8 ml/m2 - LA ESV SP 4CH (MOD) 7.22 ml - LA ESV SP 2CH (MOD) 18.15 ml - LA ESV BP (MOD) 11.47 ml - LA ESV BP (MOD) index 7.75 ml/m2 - Diastolic/Systolic Function Name Value Normal Range MV E-wave Vmax 0.51 m/sec - MV deceleration time 180.22 msec - MV A-wave Vmax 0.62 m/sec - MV E:A ratio 0.82 ratio - Aortic Valve Name Value Normal Range AV Vmax 1.17 m/sec - AV VTI 19.71 cm - AV peak gradient 5.44 mmHg - AV mean gradient 3.38 mmHg - LVOT diameter 2.26 cm - LVOT Vmax 0.89 m/sec - LVOT VTI 13.72 cm - LVOT peak gradient 3.17 mmHg - LVOT mean gradient 1.67 mmHg - SV LVOT 55.03 ml - SHARAD (continuity Vmax) 3.06 cm2 - SHARAD (continuity VTI) 2.79 cm2 - Tricuspid Valve Name Value Normal Range TR Vmax 2.3 m/sec - TR peak gradient 21 mmHg - RAP 8 mmHg - RVSP 29 mmHg - IVC diameter 2.59 cm (1.2 - 2.3) Pulmonic Valve/Qp:Qs Name Value Normal Range PV acceleration time 68.51 msec - Reardon/IV: Voiding Method Indwelling Catheter IV Catheter Type [Right Wrist] INT / Saline Lock IV Catheter Type [Left Hand] Peripheral IV IV Catheter Type [Right Hand] Peripheral IV IV Catheter Type [Left Wrist] Peripheral IV IV Catheter Type [Right Peripheral IV Forearm] IV Catheter Type [Right Triple Lumen Cath Internal Jugular] IV Catheter Type [Left Forearm INT / Saline Lock ] IV Catheter Type [Right Triple Lumen Cath Femoral] IV Catheter Type [Right INT / Saline Lock Antecubital] Active Medications - Current Medications Current Medications: Generic Name Dose Route Start Last Admin Trade Name Freq PRN Reason Stop Dose Admin Acetaminophen 650 mg 02/24/20 15:13 04/14/20 22:25 Tylenol PO 650 mg Q4H PRN Administration Pain, Mild (1-3) Albuterol 2.5 mg 02/24/20 15:13 Proventil IH Q4HRT PRN Shortness Of Breath Alprazolam 0.5 mg 03/30/20 14:19 04/15/20 14:23 Xanax PO 0.5 mg Q8H PRN Administration Anxiety Lipase/Protease/Amylase 1 each 02/26/20 11:16 Pancreaze 10,500 Unit FEEDTUBE PRN PRN For Clogged Feeding Tube Baclofen 10 mg 04/03/20 12:00 04/15/20 09:19 Lioresal PO 10 mg BID ALISA Administration Bisacodyl 10 mg 03/12/20 18:00 04/12/20 09:26 Bisacodyl 10 Mg Rect Supp MD 10 mg QDAY PRN Administration Bowel Movement Docusate Sodium 100 mg 04/03/20 12:00 04/15/20 09:19 Colace FEEDTUBE 100 mg BID ALISA Administration Enoxaparin Sodium 40 mg 03/20/20 22:00 04/14/20 22:18 Enoxaparin SUB-Q 40 mg QDAY@2200 ALISA Administration Protocol Glycopyrrolate 2 mg 04/12/20 20:00 04/15/20 19:43 Glycopyrrolate 2 Mg Tab PO 2 mg TID ALISA Administration Lansoprazole 30 mg 02/28/20 10:00 04/15/20 09:19 Prevacid Solutab FEEDTUBE 30 mg QDAY ALISA Administration Lidocaine 1 each 03/31/20 10:00 04/15/20 09:19 Lidoderm 5% TD 1 each QDAY ALISA Administration Lidocaine HCl 15 ml 04/15/20 14:00 04/15/20 19:46 Magic Mouthwash 30ml PO 15 ml TID ALISA Administration Magnesium Hydroxide 30 ml 04/12/20 19:20 04/13/20 14:42 Magnesium Hydroxide (Mom) Oral Liqd Udc PO 30 ml Q4H PRN Administration Constipation Metoprolol Tartrate 12.5 mg 02/24/20 22:00 04/15/20 09:20 Metoprolol PO Not Given BID ALISA Morphine Sulfate 2 mg 02/29/20 16:42 04/15/20 19:43 Morphine IV 2 mg Q4H PRN Administration Pain, Moderate (4-6) Pregabalin 150 mg 04/03/20 12:00 04/15/20 09:19 Pregabalin PO 150 mg BID ALISA Administration Scopolamine 1 each 03/03/20 14:00 04/14/20 11:07 Transderm-Scop TD 1 each Q3D ALISA Administration Senna 17.2 mg 04/03/20 22:00 04/14/20 22:20 Senokot PO 17.2 mg QHS ALISA Administration Simple Syrup 15 ml 02/26/20 11:16 Simple Syrup FEEDTUBE PRN PRN Hypoglycemia Simple Syrup 30 ml 02/26/20 11:16 Simple Syrup FEEDTUBE PRN PRN Hypoglycemia Sodium Bicarbonate 325 mg 02/26/20 11:16 Sodium Bicarbonate FEEDTUBE PRN PRN For Clogged Feeding Tube Sodium Hypochlorite 1 applic 03/31/20 13:00 04/15/20 09:20 Dakin's Half Strength TP 1 applicatio BID ALISA Administration Tamsulosin HCl 0.4 mg 03/09/20 18:00 04/15/20 09:19 Tamsulosin 0.4 Mg Cap PO 0.4 mg QDAY ALISA Administration Zolpidem Tartrate 10 mg 03/31/20 20:15 04/14/20 22:24 Ambien PO 10 mg QHS PRN Administration Sleep Nutrition/Malnutrition Assess - Dietary Evaluation Nutrition/Malnutrition Findings: Nutrition Notes Start: 02/26/20 10:40 Freq: Status: Active Protocol: Document 04/11/20 15:00 AB (Rec: 04/11/20 15:04 AB [id number]) Co-Sign 04/11/20 15:00 LM Nutrition Notes Initial or Follow up Reassessment Current Diagnosis Decubitus(Pressure Ulcer), Sepsis,Respiratory Failure Other Pertinent Diagnosis COVID-19 (-), ALS, pneumonia, Hip/buttock PU Current Diet Vital AF 1.2 at 75ml/hr (goal rate) Labs/Tests Reviewed Pertinent Medications Reviewed Height 6 ft Weight 63 kg [place] Body Weight (kg) 80.90 BMI 18.8 Weight Status Appropriate Subjective/Other Information F/U for TF tolerance. Per RN, pt is tolerating TF at goal rate. Per chart, pt had BM . Percent of energy/protein needs met: 100%/100% Burn Absent Trauma Absent GI Symptoms None Skin Integrity/Comment Pressure Ulcer Stage 2 Current % PO Negligible Minimum of two criteria Yes Body Fat Depletion Mild depletion (non-severe) Muscle Mass Mild Depletion (non-severe) Reduced [employer] Strength Measurably Reduced (severe) #3 Nutrition Diagnosis Malnutrition Diagnosis Progress(for reassessment Continues documentation) #2 Nutrition Diagnosis Inadequate oral intake Diagnosis Progress(for reassessment Continues documentation) #1 Nutrition Diagnosis Increased nutrient needs ( specify in comment below) Diagnosis Progress(for reassessment Continues documentation) Is patient on ventilator? Yes Is Patient Ambulatory and/or Out of Bed No REE-([place]-confined to bed) 1784.508 Kcal/Kg value to use for calculation 37 Approximate Energy Requirements Using 2331 kcal/Kg Calculation Used for Recommendations Kcal/kg Additional Notes Protein needs: 88-147 g (1.2-2 g/ kg ABW) Fluid: 1ml/kcal Nutrition Intervention Change Diet Order: Continue TF Nutrition Support: Vital AF 1.2 at 75ml/hr. Flush 200ml q4h For hyponatremia, flush 150 mL q4h Kcal 2,160 Protein (gm) 135 Fluid (mL) 1,460 Add Supplement/Snack (indicate name/kcal Will BID /protein ) Provides kCal: 190 Provides Protein (gm) 5 Goal #1 Meet at least 80% of energy and protein needs via TF Goal #2 Wound healing Anticipated Discharge Needs: Unable to determine at this time Follow-Up By: 04/18/20 Additional Comments F/U for TF tolerance
[2020-04-15] MEDS: ZOLPIDEM 5 MG TAB PO PRN (21:50)
[2020-04-15] MEDS: ENOXAPARIN 40 MG/0.4 ML INJ SUB-Q SCH (21:50)
[2020-04-15] MEDS: SENNOSIDES 8.6 MG TAB PO SCH (21:50)
[2020-04-16] MEDS: MORPHINE 2 MG/1 ML INJ IV PRN ×5 (00:50→22:19)
[2020-04-16] MEDS: ALPRAZolam 0.5 MG TAB PO PRN ×3 (06:23→22:18)
[2020-04-16] MEDS: DOCUSATE SODIUM 100 MG/10 ML ORAL LIQD FEEDTUBE SCH ×2 (09:33→22:18)
[2020-04-16] MEDS: TAMSULOSIN 0.4 MG CAP PO SCH (09:33)
[2020-04-16] MEDS: LIDOCAINE 5% 1 EACH PATCH TD SCH (09:33)
[2020-04-16] MEDS: GLYCOPYRROLATE 2 MG TAB PO SCH ×3 (09:34→23:19)
[2020-04-16] MEDS: LANSOPRAZOLE 30 MG SOLUTAB FEEDTUBE SCH (09:34)
[2020-04-16] MEDS: PREGABALIN 75 MG CAP PO SCH ×2 (09:34→22:17)
[2020-04-16] MEDS: BACLOFEN 10 MG TAB PO SCH ×2 (09:34→22:18)
--- NOTE | 2020-04-16 10:27 | Progress Note ---
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 Respiratory Failure s/p trach Severe Sepsis with Shock Bilateral Pneumonia (Possible aspiration) History of ALS on Trilogy Oropharyngeal Dysphagia s/p PEG Acute toxic metabolic encephalopathy-resolved Elevated D-dimer Elevated troponin possibly type 2 ischemia Leukocytsois Continue to trend WCC and temperature curve Continue Ambien for sleep at night Continue all supportive care Discharge planning is ongoing- discussed with case management, she is waiting for his significant other and his and the state program that provides attendant care in his home to make final decisions as to services that he can have to support him and his partner at home. - continue daytime PSV as tolerated -He is not tolerating ATP trials and is vent dependant. - ABG, CXR as clinically indicated - continue Robinul & scopolamine for secretion control - Keep K at 4, Mg at 2 and Phos at 2.5 to optimize respiratory muscle function - wound care per RN/WCN, off loading, frequent turning, mobility per facility protocol - wean supplemental oxygen for target O2 sats > 92% - VAP bundle addressed, aspiration precautions, HOB >40 - continue lung protective strategies - continue bronchodilators with pulmonary hygiene per RT - s/p empiric anti-infectives per ID recs (Rocephin and Zithromax) - enteral nutrition at goal rate as tolerated - accuchecks with glycemic control per SSI (While critically ill target blood glucose of 140-180 mg/dL; avoid hypoglycemia) - avoid nephrotoxins, renal dose all medications - avoid benzodiazepines, reduce the possibility of delirium - prn analgesia per CPOT score - Maintenance of sleep-wake cycle, avoid delirium -Continue stress ulcer and VTE prophylaxis (Famotidine and Enoxaparin) -Reardon in place for urinary retention and sacral decubitus ulcer - Monitor hemodynamics closely - continue other care per attending / other consultants CONDITION: FAIR PROGNOSIS: GUARDED CODE STATUS: FULL CODE Subjective Date of service: 04/16/20 Principal diagnosis: Ac on Ch Hypercapnic & hypoxemic Resp Failure; Severe Sepsis; Jamar PNA; ALS Interval history: Patient is seen today for: Acute on Chronic Hypercapnic & hypoxemic Respiratory Failure; Severe Sepsis with Shock; Bilateral Pneumonia (Possible aspiration); History of ALS on Trilogy; Acute toxic metabolic encephalopathy Seen and examined at bedside; 24hour events reviewed; nursing and respiratory care staff consulted; no adverse overnight events reported to me; resting in bed; remains on MVS; s/p trach and PEG Tolerating tube feedings. Tolerating PSV at the bedside, full support at night No fevers,no vomiting. Slept well last night. Phonates around the trach- wants to go home RT tried ATP this morning- the patient became bradycardic with increased work of breathing , so placed back of PSV No new issues Objective Vital Signs - 12hr 04/15/20 04/15/20 04/15/20 22:41 23:00 23:57 Temperature 98.3 F Pulse Rate 116 H 118 H Respiratory 18 Rate Respiratory Rate [Back] Respiratory Rate [Throat] Blood Pressure 104/76 109/77 O2 Sat by Pulse Oximetry O2 Sat by Pulse Oximetry [ Assessment] 04/16/20 04/16/20 04/16/20 00:00 00:25 00:37 Temperature Pulse Rate 117 H 113 H 116 H Respiratory 22 Rate Respiratory Rate [Back] Respiratory Rate [Throat] Blood Pressure 115/78 115/78 O2 Sat by Pulse 93 92 Oximetry O2 Sat by Pulse Oximetry [ Assessment] 04/16/20 04/16/20 04/16/20 00:50 01:00 01:20 Temperature Pulse Rate 118 H Respiratory 20 23 20 Rate Respiratory Rate [Back] Respiratory Rate [Throat] Blood Pressure 111/80 O2 Sat by Pulse 90 Oximetry O2 Sat by Pulse Oximetry [ Assessment] 04/16/20 04/16/20 04/16/20 02:00 03:00 03:24 Temperature 98.3 F Pulse Rate 109 H 111 H Respiratory 26 H 14 Rate Respiratory Rate [Back] Respiratory Rate [Throat] Blood Pressure 116/79 116/79 O2 Sat by Pulse 93 94 Oximetry O2 Sat by Pulse Oximetry [ Assessment] 04/16/20 04/16/20 04/16/20 03:39 04:00 04:53 Temperature Pulse Rate 112 H 117 H Respiratory 29 H Rate Respiratory Rate [Back] Respiratory Rate [Throat] Blood Pressure 117/79 O2 Sat by Pulse Oximetry O2 Sat by Pulse 97 Oximetry [ Assessment] 04/16/20 04/16/20 04/16/20 04:55 05:00 06:00 Temperature Pulse Rate 105 H 115 H 117 H Respiratory 18 19 Rate Respiratory Rate [Back] Respiratory Rate [Throat] Blood Pressure 114/80 109/76 O2 Sat by Pulse 95 95 94 Oximetry O2 Sat by Pulse Oximetry [ Assessment] 04/16/20 04/16/20 04/16/20 06:20 06:22 06:52 Temperature Pulse Rate Respiratory 20 20 Rate Respiratory 20 Rate [Back] Respiratory 20 Rate [Throat] Blood Pressure O2 Sat by Pulse Oximetry O2 Sat by Pulse Oximetry [ Assessment] 04/16/20 04/16/20 04/16/20 07:00 08:00 09:11 Temperature 97.9 F Pulse Rate 109 H 109 H 112 H Respiratory 23 17 Rate Respiratory Rate [Back] Respiratory Rate [Throat] Blood Pressure 111/79 119/80 110/76 O2 Sat by Pulse 94 98 96 Oximetry O2 Sat by Pulse Oximetry [ Assessment] Constitutional: no acute distress, alert, other (thin middle aged male with normal respiratory effort at rest on MVS) Eyes: non-icteric ENT: oropharynx moist, other (S/P Tracheostomy) Neck: supple, no lymphadenopathy, no JVD Effort: mildly labored Ascultation: Bilateral: clear, diminished breath sounds, wheezes, rhonchi Percussion: Bilateral: not dull Cardiovascular: regular rate and rhythm, other (S1,S2, no murmurs) Gastrointestinal: normoactive bowel sounds, soft, non-tender, non-distended, other (+ distended but non tender suprapubis) Integumentary: normal, decubitus ulcer (sacral / gluteal) Extremities: no cyanosis, no edema, pulses normal, other (atrophic looking limbs) Neurologic: pupils equal and round, other (motor strength in extremities 1-2/5, awake, alert, mouths words to make needs known) Psychiatric: depressed CBC and BMP: 04/24/20 05:28 04/24/20 05:28 ABG, PT/INR, D-dimer: ABG ABG pH 7.371 (7.320-7.450) 03/08/20 12:34 POC ABG pCO2 63.1 mmHg (32.0-48.0) H 03/08/20 12:34 ABG pCO2 60.1 mm Hg 03/06/20 04:34 POC ABG pO2 90.5 mmHg (83-108) 03/08/20 12:34 ABG pO2 88.6 mm Hg (80.0-90.0) 03/06/20 04:34 POC ABG HCO3 35.7 03/08/20 12:34 ABG O2 Saturation 97.0 % (95.0-99.0) 03/06/20 04:34 PT/INR, D-dimer PT 15.6 Sec. (12.2-14.9) H 02/24/20 09:19 INR 1.21 (0.87-1.13) H 02/24/20 09:19 D-Dimer 1311.96 ng/mlDDU (0-234) H 02/24/20 09:19 Abnormal lab findings: Abnormal Labs 02/24/20 02/24/20 02/24/20 09:19 09:19 09:19 WBC 20.2 H RBC 5.05 H Hgb Hct MCV MCH RDW 15.3 H Plt Count Lymph % (Auto) Lymph # (Auto) [place] # (Auto) Seg Neutrophils % Seg Neuts % (Manual) 86.0 H Lymphocytes % (Manual) 1.0 L Monocytes % (Manual) Basophils % (Manual) Seg Neutrophils # Seg Neutrophils # Man 17.4 H Lymphocytes # (Manual) 0.2 L Monocytes # (Manual) Eosinophils # (Manual) Basophils # (Manual) PT 15.6 H INR 1.21 H D-Dimer 1311.96 H ABG pH POC ABG pCO2 POC ABG pO2 ABG pO2 ABG HCO3 ABG O2 Saturation ABG Base Excess ABG Hemoglobin ABG Oxyhemoglobin ABG Potassium ABG Glucose Oxyhemoglobin Carboxyhemoglobin Sodium 135 L Potassium 3.2 L Chloride 92.2 L Carbon Dioxide BUN 6 L Creatinine < 0.2 L Glucose 124 H POC Glucose Calcium Ferritin Total Bilirubin 2.30 H Alkaline Phosphatase 132 H Lactate Dehydrogenase Total Creatine Kinase CK-MB (CK-2) Rel Index Troponin T 0.080 H C-Reactive Protein Total Protein Albumin 3.6 L Prealbumin LDL Cholesterol Direct 41 L Arterial Blood Glucose Arterial Blood Ionized Calcium Urine WBC (Auto) 02/24/20 02/24/20 02/24/20 09:19 09:58 10:01 WBC RBC Hgb Hct MCV MCH RDW Plt Count Lymph % (Auto) Lymph # (Auto) [place] # (Auto) Seg Neutrophils % Seg Neuts % (Manual) Lymphocytes % (Manual) Monocytes % (Manual) Basophils % (Manual) Seg Neutrophils # Seg Neutrophils # Man Lymphocytes # (Manual) Monocytes # (Manual) Eosinophils # (Manual) Basophils # (Manual) PT INR D-Dimer ABG pH 7.176 L* POC ABG pCO2 POC ABG pO2 ABG pO2 91.2 H ABG HCO3 ABG O2 Saturation ABG Base Excess -4.6 L ABG Hemoglobin ABG Oxyhemoglobin ABG Potassium ABG Glucose Oxyhemoglobin 92.6 L Carboxyhemoglobin Sodium Potassium Chloride Carbon Dioxide BUN Creatinine Glucose POC Glucose Calcium Ferritin 1715.0 H Total Bilirubin Alkaline Phosphatase Lactate Dehydrogenase 303 H Total Creatine Kinase CK-MB (CK-2) Rel Index Troponin T C-Reactive Protein 26.10 H Total Protein Albumin Prealbumin LDL Cholesterol Direct Arterial Blood Glucose Arterial Blood Ionized Calcium Urine WBC (Auto) 02/24/20 02/24/20 02/24/20 11:52 13:45 19:35 WBC RBC Hgb Hct MCV MCH RDW Plt Count Lymph % (Auto) Lymph # (Auto) [place] # (Auto) Seg Neutrophils % Seg Neuts % (Manual) Lymphocytes % (Manual) Monocytes % (Manual) Basophils % (Manual) Seg Neutrophils # Seg Neutrophils # Man Lymphocytes # (Manual) Monocytes # (Manual) Eosinophils # (Manual) Basophils # (Manual) PT INR D-Dimer ABG pH 7.051 L* 7.300 L POC ABG pCO2 POC ABG pO2 ABG pO2 94.7 H 75.1 L ABG HCO3 18.0 L ABG O2 Saturation 93.5 L ABG Base Excess -6.8 L -7.8 L ABG Hemoglobin 13.2 L 11.9 L ABG Oxyhemoglobin ABG Potassium ABG Glucose Oxyhemoglobin 91.0 L 92.7 L Carboxyhemoglobin Sodium Potassium Chloride Carbon Dioxide BUN Creatinine Glucose POC Glucose Calcium Ferritin Total Bilirubin Alkaline Phosphatase Lactate Dehydrogenase Total Creatine Kinase CK-MB (CK-2) Rel Index Troponin T 0.034 H D C-Reactive Protein Total Protein Albumin Prealbumin LDL Cholesterol Direct Arterial Blood Glucose Arterial Blood Ionized Calcium Urine WBC (Auto) 02/25/20 02/25/20 02/25/20 04:00 04:00 12:26 WBC 22.9 H RBC Hgb Hct MCV 83 L MCH 27 L RDW Plt Count 468 H Lymph % (Auto) Lymph # (Auto) [place] # (Auto) Seg Neutrophils % Seg Neuts % (Manual) 89.0 H Lymphocytes % (Manual) 7.0 L Monocytes % (Manual) Basophils % (Manual) Seg Neutrophils # Seg Neutrophils # Man 20.4 H Lymphocytes # (Manual) Monocytes # (Manual) Eosinophils # (Manual) Basophils # (Manual) PT INR D-Dimer ABG pH POC ABG pCO2 POC ABG pO2 ABG pO2 ABG HCO3 ABG O2 Saturation ABG Base Excess ABG Hemoglobin ABG Oxyhemoglobin ABG Potassium 2.6 L ABG Glucose 142 H Oxyhemoglobin Carboxyhemoglobin Sodium Potassium 3.2 L Chloride Carbon Dioxide 18 L BUN Creatinine 0.2 L Glucose 114 H POC Glucose Calcium Ferritin Total Bilirubin Alkaline Phosphatase Lactate Dehydrogenase Total Creatine Kinase CK-MB (CK-2) Rel Index Troponin T C-Reactive Protein Total Protein Albumin 3.5 L Prealbumin LDL Cholesterol Direct Arterial Blood Glucose 142 H Arterial Blood Ionized Calcium Urine WBC (Auto) 02/26/20 02/26/20 02/26/20 15:58 17:00 23:43 WBC RBC Hgb Hct MCV MCH RDW Plt Count Lymph % (Auto) Lymph # (Auto) [place] # (Auto) Seg Neutrophils % Seg Neuts % (Manual) Lymphocytes % (Manual) Monocytes % (Manual) Basophils % (Manual) Seg Neutrophils # Seg Neutrophils # Man Lymphocytes # (Manual) Monocytes # (Manual) Eosinophils # (Manual) Basophils # (Manual) PT INR D-Dimer ABG pH 7.502 H POC ABG pCO2 POC ABG pO2 213.6 H ABG pO2 ABG HCO3 ABG O2 Saturation ABG Base Excess ABG Hemoglobin ABG Oxyhemoglobin 99.2 H ABG Potassium 2.9 L ABG Glucose 160 H Oxyhemoglobin Carboxyhemoglobin 0.4 L Sodium Potassium Chloride Carbon Dioxide BUN Creatinine Glucose POC Glucose 189 H 120 H Calcium Ferritin Total Bilirubin Alkaline Phosphatase Lactate Dehydrogenase Total Creatine Kinase CK-MB (CK-2) Rel Index Troponin T C-Reactive Protein Total Protein Albumin Prealbumin LDL Cholesterol Direct Arterial Blood Glucose 160 H Arterial Blood Ionized Calcium 4.5 L Urine WBC (Auto) 02/27/20 02/27/20 02/27/20 05:00 07:04 17:45 WBC RBC Hgb Hct MCV MCH RDW Plt Count Lymph % (Auto) Lymph # (Auto) [place] # (Auto) Seg Neutrophils % Seg Neuts % (Manual) Lymphocytes % (Manual) Monocytes % (Manual) Basophils % (Manual) Seg Neutrophils # Seg Neutrophils # Man Lymphocytes # (Manual) Monocytes # (Manual) Eosinophils # (Manual) Basophils # (Manual) PT INR D-Dimer ABG pH 7.524 H POC ABG pCO2 POC ABG pO2 ABG pO2 ABG HCO3 ABG O2 Saturation ABG Base Excess ABG Hemoglobin ABG Oxyhemoglobin ABG Potassium 3.0 L ABG Glucose 143 H Oxyhemoglobin Carboxyhemoglobin Sodium Potassium Chloride Carbon Dioxide BUN Creatinine Glucose POC Glucose 154 H 175 H Calcium Ferritin Total Bilirubin Alkaline Phosphatase Lactate Dehydrogenase Total Creatine Kinase CK-MB (CK-2) Rel Index Troponin T C-Reactive Protein Total Protein Albumin Prealbumin LDL Cholesterol Direct Arterial Blood Glucose 143 H Arterial Blood Ionized Calcium Urine WBC (Auto) 02/27/20 02/28/20 02/28/20 Unknown 00:21 04:15 WBC 18.7 H RBC Hgb Hct MCV MCH RDW Plt Count Lymph % (Auto) 8.7 L Lymph # (Auto) [place] # (Auto) 1.2 H Seg Neutrophils % 84.6 H Seg Neuts % (Manual) Lymphocytes % (Manual) Monocytes % (Manual) Basophils % (Manual) Seg Neutrophils # 15.9 H Seg Neutrophils # Man Lymphocytes # (Manual) Monocytes # (Manual) Eosinophils # (Manual) Basophils # (Manual) PT INR D-Dimer ABG pH POC ABG pCO2 POC ABG pO2 ABG pO2 ABG HCO3 ABG O2 Saturation ABG Base Excess ABG Hemoglobin ABG Oxyhemoglobin ABG Potassium ABG Glucose Oxyhemoglobin Carboxyhemoglobin Sodium Potassium 2.9 L* Chloride Carbon Dioxide 33 H D BUN Creatinine < 0.2 L Glucose 157 H POC Glucose 134 H Calcium Ferritin Total Bilirubin Alkaline Phosphatase Lactate Dehydrogenase Total Creatine Kinase CK-MB (CK-2) Rel Index Troponin T C-Reactive Protein Total Protein Albumin Prealbumin LDL Cholesterol Direct Arterial Blood Glucose Arterial Blood Ionized Calcium Urine WBC (Auto) 02/28/20 02/28/20 02/28/20 04:15 05:16 05:39 WBC RBC Hgb Hct MCV MCH RDW Plt Count Lymph % (Auto) Lymph # (Auto) [place] # (Auto) Seg Neutrophils % Seg Neuts % (Manual) Lymphocytes % (Manual) Monocytes % (Manual) Basophils % (Manual) Seg Neutrophils # Seg Neutrophils # Man Lymphocytes # (Manual) Monocytes # (Manual) Eosinophils # (Manual) Basophils # (Manual) PT INR D-Dimer ABG pH POC ABG pCO2 POC ABG pO2 ABG pO2 142.9 H ABG HCO3 34.1 H ABG O2 Saturation ABG Base Excess 8.3 H ABG Hemoglobin ABG Oxyhemoglobin ABG Potassium ABG Glucose Oxyhemoglobin Carboxyhemoglobin Sodium 151 H Potassium Chloride Carbon Dioxide 32 H BUN Creatinine 0.2 L Glucose 167 H POC Glucose 138 H Calcium Ferritin Total Bilirubin Alkaline Phosphatase Lactate Dehydrogenase Total Creatine Kinase CK-MB (CK-2) Rel Index Troponin T C-Reactive Protein Total Protein Albumin Prealbumin LDL Cholesterol Direct Arterial Blood Glucose Arterial Blood Ionized Calcium Urine WBC (Auto) 02/28/20 02/28/20 02/28/20 11:05 11:33 12:54 WBC RBC Hgb Hct MCV MCH RDW Plt Count Lymph % (Auto) Lymph # (Auto) [place] # (Auto) Seg Neutrophils % Seg Neuts % (Manual) Lymphocytes % (Manual) Monocytes % (Manual) Basophils % (Manual) Seg Neutrophils # Seg Neutrophils # Man Lymphocytes # (Manual) Monocytes # (Manual) Eosinophils # (Manual) Basophils # (Manual) PT INR D-Dimer ABG pH POC ABG pCO2 POC ABG pO2 ABG pO2 ABG HCO3 ABG O2 Saturation ABG Base Excess ABG Hemoglobin ABG Oxyhemoglobin ABG Potassium ABG Glucose Oxyhemoglobin Carboxyhemoglobin Sodium Potassium Chloride Carbon Dioxide BUN Creatinine Glucose POC Glucose 160 H Calcium Ferritin Total Bilirubin Alkaline Phosphatase Lactate Dehydrogenase Total Creatine Kinase CK-MB (CK-2) Rel Index Troponin T C-Reactive Protein 4.70 H Total Protein Albumin Prealbumin 0.090 L LDL Cholesterol Direct Arterial Blood Glucose Arterial Blood Ionized Calcium Urine WBC (Auto) 02/28/20 02/29/20 02/29/20 17:34 00:44 04:05 WBC 19.6 H RBC Hgb Hct MCV MCH 27 L RDW 15.4 H Plt Count Lymph % (Auto) Lymph # (Auto) [place] # (Auto) Seg Neutrophils % Seg Neuts % (Manual) 86.0 H Lymphocytes % (Manual) 7.0 L Monocytes % (Manual) Basophils % (Manual) Seg Neutrophils # Seg Neutrophils # Man 16.9 H Lymphocytes # (Manual) Monocytes # (Manual) 1.2 H Eosinophils # (Manual) Basophils # (Manual) PT INR D-Dimer ABG pH POC ABG pCO2 POC ABG pO2 ABG pO2 ABG HCO3 ABG O2 Saturation ABG Base Excess ABG Hemoglobin ABG Oxyhemoglobin ABG Potassium ABG Glucose Oxyhemoglobin Carboxyhemoglobin Sodium Potassium Chloride Carbon Dioxide BUN Creatinine Glucose POC Glucose 136 H 156 H Calcium Ferritin Total Bilirubin Alkaline Phosphatase Lactate Dehydrogenase Total Creatine Kinase CK-MB (CK-2) Rel Index Troponin T C-Reactive Protein Total Protein Albumin Prealbumin LDL Cholesterol Direct Arterial Blood Glucose Arterial Blood Ionized Calcium Urine WBC (Auto) 02/29/20 02/29/20 02/29/20 04:05 05:14 05:33 WBC RBC Hgb Hct MCV MCH RDW Plt Count Lymph % (Auto) Lymph # (Auto) [place] # (Auto) Seg Neutrophils % Seg Neuts % (Manual) Lymphocytes % (Manual) Monocytes % (Manual) Basophils % (Manual) Seg Neutrophils # Seg Neutrophils # Man Lymphocytes # (Manual) Monocytes # (Manual) Eosinophils # (Manual) Basophils # (Manual) PT INR D-Dimer ABG pH POC ABG pCO2 54.3 H POC ABG pO2 124.8 H ABG pO2 ABG HCO3 ABG O2 Saturation ABG Base Excess ABG Hemoglobin ABG Oxyhemoglobin ABG Potassium ABG Glucose 185 H Oxyhemoglobin Carboxyhemoglobin Sodium 148 H Potassium Chloride Carbon Dioxide 33 H BUN Creatinine < 0.2 L Glucose 173 H POC Glucose 152 H Calcium Ferritin Total Bilirubin Alkaline Phosphatase Lactate Dehydrogenase Total Creatine Kinase CK-MB (CK-2) Rel Index Troponin T C-Reactive Protein Total Protein Albumin Prealbumin LDL Cholesterol Direct Arterial Blood Glucose 185 H Arterial Blood Ionized Calcium Urine WBC (Auto) 03/01/20 03/01/20 03/01/20 00:00 03:45 04:33 WBC 23.1 H RBC Hgb Hct MCV MCH 27 L RDW 15.3 H Plt Count Lymph % (Auto) Lymph # (Auto) [place] # (Auto) Seg Neutrophils % Seg Neuts % (Manual) 92.0 H Lymphocytes % (Manual) 6.0 L Monocytes % (Manual) Basophils % (Manual) Seg Neutrophils # Seg Neutrophils # Man 21.3 H Lymphocytes # (Manual) Monocytes # (Manual) Eosinophils # (Manual) 0.5 H Basophils # (Manual) PT INR D-Dimer ABG pH 7.492 H POC ABG pCO2 POC ABG pO2 ABG pO2 157.1 H ABG HCO3 32.3 H ABG O2 Saturation ABG Base Excess 8.1 H ABG Hemoglobin 13.2 L ABG Oxyhemoglobin ABG Potassium ABG Glucose Oxyhemoglobin Carboxyhemoglobin Sodium Potassium Chloride Carbon Dioxide BUN Creatinine Glucose POC Glucose 109 H Calcium Ferritin Total Bilirubin Alkaline Phosphatase Lactate Dehydrogenase Total Creatine Kinase CK-MB (CK-2) Rel Index Troponin T C-Reactive Protein Total Protein Albumin Prealbumin LDL Cholesterol Direct Arterial Blood Glucose Arterial Blood Ionized Calcium Urine WBC (Auto) 03/01/20 03/01/20 03/01/20 04:33 05:29 12:32 WBC RBC Hgb Hct MCV MCH RDW Plt Count Lymph % (Auto) Lymph # (Auto) [place] # (Auto) Seg Neutrophils % Seg Neuts % (Manual) Lymphocytes % (Manual) Monocytes % (Manual) Basophils % (Manual) Seg Neutrophils # Seg Neutrophils # Man Lymphocytes # (Manual) Monocytes # (Manual) Eosinophils # (Manual) Basophils # (Manual) PT INR D-Dimer ABG pH POC ABG pCO2 POC ABG pO2 ABG pO2 ABG HCO3 ABG O2 Saturation ABG Base Excess ABG Hemoglobin ABG Oxyhemoglobin ABG Potassium ABG Glucose Oxyhemoglobin Carboxyhemoglobin Sodium 146 H Potassium Chloride Carbon Dioxide 32 H BUN Creatinine < 0.2 L Glucose 120 H POC Glucose 120 H 128 H Calcium Ferritin Total Bilirubin Alkaline Phosphatase Lactate Dehydrogenase Total Creatine Kinase CK-MB (CK-2) Rel Index Troponin T C-Reactive Protein Total Protein Albumin Prealbumin LDL Cholesterol Direct Arterial Blood Glucose Arterial Blood Ionized Calcium Urine WBC (Auto) 03/01/20 03/01/20 03/02/20 17:38 23:46 06:13 WBC RBC Hgb Hct MCV MCH RDW Plt Count Lymph % (Auto) Lymph # (Auto) [place] # (Auto) Seg Neutrophils % Seg Neuts % (Manual) Lymphocytes % (Manual) Monocytes % (Manual) Basophils % (Manual) Seg Neutrophils # Seg Neutrophils # Man Lymphocytes # (Manual) Monocytes # (Manual) Eosinophils # (Manual) Basophils # (Manual) PT INR D-Dimer ABG pH POC ABG pCO2 POC ABG pO2 ABG pO2 ABG HCO3 ABG O2 Saturation ABG Base Excess ABG Hemoglobin ABG Oxyhemoglobin ABG Potassium ABG Glucose Oxyhemoglobin Carboxyhemoglobin Sodium Potassium Chloride Carbon Dioxide BUN Creatinine Glucose POC Glucose 114 H 121 H 120 H Calcium Ferritin Total Bilirubin Alkaline Phosphatase Lactate Dehydrogenase Total Creatine Kinase CK-MB (CK-2) Rel Index Troponin T C-Reactive Protein Total Protein Albumin Prealbumin LDL Cholesterol Direct Arterial Blood Glucose Arterial Blood Ionized Calcium Urine WBC (Auto) 03/02/20 03/02/20 03/03/20 09:47 09:47 10:21 WBC 23.6 H RBC Hgb Hct MCV MCH RDW 15.3 H Plt Count 494 H Lymph % (Auto) Lymph # (Auto) [place] # (Auto) Seg Neutrophils % Seg Neuts % (Manual) 85.0 H Lymphocytes % (Manual) 6.0 L Monocytes % (Manual) Basophils % (Manual) Seg Neutrophils # Seg Neutrophils # Man 20.1 H Lymphocytes # (Manual) Monocytes # (Manual) 1.7 H Eosinophils # (Manual) Basophils # (Manual) PT INR D-Dimer ABG pH POC ABG pCO2 POC ABG pO2 ABG pO2 ABG HCO3 ABG O2 Saturation ABG Base Excess ABG Hemoglobin ABG Oxyhemoglobin ABG Potassium 3.3 L ABG Glucose 158 H Oxyhemoglobin Carboxyhemoglobin Sodium Potassium Chloride Carbon Dioxide BUN Creatinine < 0.2 L Glucose 177 H POC Glucose Calcium Ferritin Total Bilirubin Alkaline Phosphatase Lactate Dehydrogenase Total Creatine Kinase CK-MB (CK-2) Rel Index Troponin T C-Reactive Protein Total Protein Albumin Prealbumin LDL Cholesterol Direct Arterial Blood Glucose 158 H Arterial Blood Ionized Calcium Urine WBC (Auto) 03/03/20 03/04/20 03/04/20 21:30 00:00 12:23 WBC RBC Hgb Hct MCV MCH RDW Plt Count Lymph % (Auto) Lymph # (Auto) [place] # (Auto) Seg Neutrophils % Seg Neuts % (Manual) Lymphocytes % (Manual) Monocytes % (Manual) Basophils % (Manual) Seg Neutrophils # Seg Neutrophils # Man Lymphocytes # (Manual) Monocytes # (Manual) Eosinophils # (Manual) Basophils # (Manual) PT INR D-Dimer ABG pH 7.328 L POC ABG pCO2 POC ABG pO2 ABG pO2 68.4 L ABG HCO3 35.0 H ABG O2 Saturation 93.9 L ABG Base Excess 6.8 H ABG Hemoglobin 12.7 L ABG Oxyhemoglobin ABG Potassium ABG Glucose Oxyhemoglobin 91.9 L Carboxyhemoglobin Sodium Potassium Chloride Carbon Dioxide BUN Creatinine Glucose POC Glucose 187 H 163 H Calcium Ferritin Total Bilirubin Alkaline Phosphatase Lactate Dehydrogenase Total Creatine Kinase CK-MB (CK-2) Rel Index Troponin T C-Reactive Protein Total Protein Albumin Prealbumin LDL Cholesterol Direct Arterial Blood Glucose Arterial Blood Ionized Calcium Urine WBC (Auto) 11/11/1403/04/20 03/05/20 18:15 21:30 06:02 WBC RBC Hgb Hct MCV MCH RDW Plt Count Lymph % (Auto) Lymph # (Auto) [place] # (Auto) Seg Neutrophils % Seg Neuts % (Manual) Lymphocytes % (Manual) Monocytes % (Manual) Basophils % (Manual) Seg Neutrophils # Seg Neutrophils # Man Lymphocytes # (Manual) Monocytes # (Manual) Eosinophils # (Manual) Basophils # (Manual) PT INR D-Dimer ABG pH 7.297 L POC ABG pCO2 POC ABG pO2 ABG pO2 ABG HCO3 41.0 H ABG O2 Saturation ABG Base Excess 11.0 H ABG Hemoglobin 13.1 L ABG Oxyhemoglobin ABG Potassium ABG Glucose Oxyhemoglobin 94.5 L Carboxyhemoglobin Sodium Potassium Chloride Carbon Dioxide BUN Creatinine Glucose POC Glucose 192 H 127 H Calcium Ferritin Total Bilirubin Alkaline Phosphatase Lactate Dehydrogenase Total Creatine Kinase CK-MB (CK-2) Rel Index Troponin T C-Reactive Protein Total Protein Albumin Prealbumin LDL Cholesterol Direct Arterial Blood Glucose Arterial Blood Ionized Calcium Urine WBC (Auto) 03/05/20 03/05/20 03/06/20 12:09 16:42 00:24 WBC RBC Hgb Hct MCV MCH RDW Plt Count Lymph % (Auto) Lymph # (Auto) [place] # (Auto) Seg Neutrophils % Seg Neuts % (Manual) Lymphocytes % (Manual) Monocytes % (Manual) Basophils % (Manual) Seg Neutrophils # Seg Neutrophils # Man Lymphocytes # (Manual) Monocytes # (Manual) Eosinophils # (Manual) Basophils # (Manual) PT INR D-Dimer ABG pH POC ABG pCO2 POC ABG pO2 ABG pO2 ABG HCO3 ABG O2 Saturation ABG Base Excess ABG Hemoglobin ABG Oxyhemoglobin ABG Potassium ABG Glucose Oxyhemoglobin Carboxyhemoglobin Sodium Potassium Chloride Carbon Dioxide BUN Creatinine Glucose POC Glucose 147 H 114 H 134 H Calcium Ferritin Total Bilirubin Alkaline Phosphatase Lactate Dehydrogenase Total Creatine Kinase CK-MB (CK-2) Rel Index Troponin T C-Reactive Protein Total Protein Albumin Prealbumin LDL Cholesterol Direct Arterial Blood Glucose Arterial Blood Ionized Calcium Urine WBC (Auto) 03/06/20 03/06/20 03/06/20 04:34 05:53 06:08 WBC 25.4 H RBC Hgb 10.5 L Hct 32.7 L MCV MCH 27 L RDW 15.3 H Plt Count 634 H Lymph % (Auto) Lymph # (Auto) [place] # (Auto) Seg Neutrophils % Seg Neuts % (Manual) 88.0 H Lymphocytes % (Manual) 2.0 L Monocytes % (Manual) 8.0 H Basophils % (Manual) Seg Neutrophils # Seg Neutrophils # Man 22.4 H Lymphocytes # (Manual) 0.5 L Monocytes # (Manual) 2.0 H Eosinophils # (Manual) Basophils # (Manual) PT INR D-Dimer ABG pH POC ABG pCO2 POC ABG pO2 ABG pO2 ABG HCO3 37.9 H ABG O2 Saturation ABG Base Excess 11.4 H ABG Hemoglobin 10.6 L ABG Oxyhemoglobin ABG Potassium ABG Glucose Oxyhemoglobin 94.7 L Carboxyhemoglobin Sodium Potassium Chloride Carbon Dioxide BUN Creatinine Glucose POC Glucose 135 H Calcium Ferritin Total Bilirubin Alkaline Phosphatase Lactate Dehydrogenase Total Creatine Kinase CK-MB (CK-2) Rel Index Troponin T C-Reactive Protein Total Protein Albumin Prealbumin LDL Cholesterol Direct Arterial Blood Glucose Arterial Blood Ionized Calcium Urine WBC (Auto) 03/06/20 03/06/20 03/06/20 06:08 12:19 19:10 WBC RBC Hgb Hct MCV MCH RDW Plt Count Lymph % (Auto) Lymph # (Auto) [place] # (Auto) Seg Neutrophils % Seg Neuts % (Manual) Lymphocytes % (Manual) Monocytes % (Manual) Basophils % (Manual) Seg Neutrophils # Seg Neutrophils # Man Lymphocytes # (Manual) Monocytes # (Manual) Eosinophils # (Manual) Basophils # (Manual) PT INR D-Dimer ABG pH POC ABG pCO2 POC ABG pO2 ABG pO2 ABG HCO3 ABG O2 Saturation ABG Base Excess ABG Hemoglobin ABG Oxyhemoglobin ABG Potassium ABG Glucose Oxyhemoglobin Carboxyhemoglobin Sodium 150 H D Potassium Chloride Carbon Dioxide 39 H D BUN 23 H Creatinine < 0.2 L Glucose 144 H POC Glucose 169 H 152 H Calcium Ferritin Total Bilirubin Alkaline Phosphatase Lactate Dehydrogenase Total Creatine Kinase CK-MB (CK-2) Rel Index Troponin T C-Reactive Protein Total Protein Albumin 3.3 L Prealbumin LDL Cholesterol Direct Arterial Blood Glucose Arterial Blood Ionized Calcium Urine WBC (Auto) 03/06/20 03/07/20 03/07/20 23:58 04:25 04:25 WBC 22.1 H RBC Hgb 10.9 L Hct 32.9 L MCV MCH RDW 15.5 H Plt Count 739 H Lymph % (Auto) 7.8 L Lymph # (Auto) [place] # (Auto) 1.3 H Seg Neutrophils % 85.5 H Seg Neuts % (Manual) Lymphocytes % (Manual) Monocytes % (Manual) Basophils % (Manual) Seg Neutrophils # 18.9 H Seg Neutrophils # Man Lymphocytes # (Manual) Monocytes # (Manual) Eosinophils # (Manual) Basophils # (Manual) PT INR D-Dimer ABG pH POC ABG pCO2 POC ABG pO2 ABG pO2 ABG HCO3 ABG O2 Saturation ABG Base Excess ABG Hemoglobin ABG Oxyhemoglobin ABG Potassium ABG Glucose Oxyhemoglobin Carboxyhemoglobin Sodium 146 H Potassium Chloride Carbon Dioxide 37 H BUN Creatinine < 0.2 L Glucose 118 H POC Glucose 111 H Calcium Ferritin Total Bilirubin Alkaline Phosphatase Lactate Dehydrogenase Total Creatine Kinase CK-MB (CK-2) Rel Index Troponin T C-Reactive Protein Total Protein Albumin 3.7 L Prealbumin LDL Cholesterol Direct Arterial Blood Glucose Arterial Blood Ionized Calcium Urine WBC (Auto) 03/07/20 03/07/20 03/07/20 05:20 17:45 23:32 WBC RBC Hgb Hct MCV MCH RDW Plt Count Lymph % (Auto) Lymph # (Auto) [place] # (Auto) Seg Neutrophils % Seg Neuts % (Manual) Lymphocytes % (Manual) Monocytes % (Manual) Basophils % (Manual) Seg Neutrophils # Seg Neutrophils # Man Lymphocytes # (Manual) Monocytes # (Manual) Eosinophils # (Manual) Basophils # (Manual) PT INR D-Dimer ABG pH POC ABG pCO2 POC ABG pO2 ABG pO2 ABG HCO3 ABG O2 Saturation ABG Base Excess ABG Hemoglobin ABG Oxyhemoglobin ABG Potassium ABG Glucose Oxyhemoglobin Carboxyhemoglobin Sodium Potassium Chloride Carbon Dioxide BUN Creatinine Glucose POC Glucose 113 H 124 H 210 H Calcium Ferritin Total Bilirubin Alkaline Phosphatase Lactate Dehydrogenase Total Creatine Kinase CK-MB (CK-2) Rel Index Troponin T C-Reactive Protein Total Protein Albumin Prealbumin LDL Cholesterol Direct Arterial Blood Glucose Arterial Blood Ionized Calcium Urine WBC (Auto) 03/08/20 03/08/20 03/08/20 05:35 06:43 06:43 WBC 28.9 H RBC 3.53 L Hgb 9.7 L Hct 30.3 L MCV MCH RDW 15.6 H Plt Count 578 H Lymph % (Auto) Lymph # (Auto) [place] # (Auto) Seg Neutrophils % Seg Neuts % (Manual) 93.0 H Lymphocytes % (Manual) 4.0 L Monocytes % (Manual) Basophils % (Manual) Seg Neutrophils # Seg Neutrophils # Man 26.9 H Lymphocytes # (Manual) Monocytes # (Manual) Eosinophils # (Manual) Basophils # (Manual) PT INR D-Dimer ABG pH POC ABG pCO2 POC ABG pO2 ABG pO2 ABG HCO3 ABG O2 Saturation ABG Base Excess ABG Hemoglobin ABG Oxyhemoglobin ABG Potassium ABG Glucose Oxyhemoglobin Carboxyhemoglobin Sodium 146 H Potassium Chloride Carbon Dioxide 35 H BUN 34 H Creatinine 0.3 L D Glucose 125 H POC Glucose 147 H Calcium Ferritin Total Bilirubin Alkaline Phosphatase Lactate Dehydrogenase Total Creatine Kinase CK-MB (CK-2) Rel Index Troponin T C-Reactive Protein Total Protein 5.9 L Albumin 3.2 L Prealbumin LDL Cholesterol Direct Arterial Blood Glucose Arterial Blood Ionized Calcium Urine WBC (Auto) 03/08/20 03/08/20 03/08/20 08:57 11:14 12:34 WBC RBC Hgb Hct MCV MCH RDW Plt Count Lymph % (Auto) Lymph # (Auto) [place] # (Auto) Seg Neutrophils % Seg Neuts % (Manual) Lymphocytes % (Manual) Monocytes % (Manual) Basophils % (Manual) Seg Neutrophils # Seg Neutrophils # Man Lymphocytes # (Manual) Monocytes # (Manual) Eosinophils # (Manual) Basophils # (Manual) PT INR D-Dimer ABG pH POC ABG pCO2 63.1 H POC ABG pO2 ABG pO2 ABG HCO3 ABG O2 Saturation ABG Base Excess ABG Hemoglobin 10.9 L ABG Oxyhemoglobin ABG Potassium ABG Glucose 176 H Oxyhemoglobin Carboxyhemoglobin Sodium Potassium Chloride Carbon Dioxide BUN Creatinine Glucose POC Glucose 171 H Calcium Ferritin Total Bilirubin Alkaline Phosphatase Lactate Dehydrogenase Total Creatine Kinase CK-MB (CK-2) Rel Index Troponin T C-Reactive Protein Total Protein Albumin Prealbumin LDL Cholesterol Direct Arterial Blood Glucose 176 H Arterial Blood Ionized Calcium 4.5 L Urine WBC (Auto) 10.0 H 03/08/20 03/08/20 03/09/20 18:02 23:43 05:49 WBC RBC Hgb Hct MCV MCH RDW Plt Count Lymph % (Auto) Lymph # (Auto) [place] # (Auto) Seg Neutrophils % Seg Neuts % (Manual) Lymphocytes % (Manual) Monocytes % (Manual) Basophils % (Manual) Seg Neutrophils # Seg Neutrophils # Man Lymphocytes # (Manual) Monocytes # (Manual) Eosinophils # (Manual) Basophils # (Manual) PT INR D-Dimer ABG pH POC ABG pCO2 POC ABG pO2 ABG pO2 ABG HCO3 ABG O2 Saturation ABG Base Excess ABG Hemoglobin ABG Oxyhemoglobin ABG Potassium ABG Glucose Oxyhemoglobin Carboxyhemoglobin Sodium Potassium Chloride Carbon Dioxide BUN Creatinine Glucose POC Glucose 157 H 134 H 163 H Calcium Ferritin Total Bilirubin Alkaline Phosphatase Lactate Dehydrogenase Total Creatine Kinase CK-MB (CK-2) Rel Index Troponin T C-Reactive Protein Total Protein Albumin Prealbumin LDL Cholesterol Direct Arterial Blood Glucose Arterial Blood Ionized Calcium Urine WBC (Auto) 03/09/20 03/09/20 03/09/20 08:35 08:35 12:11 WBC 23.4 H RBC 3.36 L Hgb 9.3 L Hct 28.8 L MCV MCH RDW 15.9 H Plt Count 521 H Lymph % (Auto) Lymph # (Auto) [place] # (Auto) Seg Neutrophils % Seg Neuts % (Manual) 87.0 H Lymphocytes % (Manual) 4.0 L Monocytes % (Manual) 9.0 H Basophils % (Manual) Seg Neutrophils # Seg Neutrophils # Man 20.4 H Lymphocytes # (Manual) 0.9 L Monocytes # (Manual) 2.1 H Eosinophils # (Manual) Basophils # (Manual) PT INR D-Dimer ABG pH POC ABG pCO2 POC ABG pO2 ABG pO2 ABG HCO3 ABG O2 Saturation ABG Base Excess ABG Hemoglobin ABG Oxyhemoglobin ABG Potassium ABG Glucose Oxyhemoglobin Carboxyhemoglobin Sodium 147 H Potassium Chloride Carbon Dioxide 37 H BUN 63 H Creatinine Glucose 154 H POC Glucose 128 H Calcium Ferritin Total Bilirubin Alkaline Phosphatase Lactate Dehydrogenase Total Creatine Kinase CK-MB (CK-2) Rel Index Troponin T C-Reactive Protein Total Protein Albumin Prealbumin LDL Cholesterol Direct Arterial Blood Glucose Arterial Blood Ionized Calcium Urine WBC (Auto) 03/09/20 03/10/20 03/10/20 17:51 00:25 05:41 WBC RBC Hgb Hct MCV MCH RDW Plt Count Lymph % (Auto) Lymph # (Auto) [place] # (Auto) Seg Neutrophils % Seg Neuts % (Manual) Lymphocytes % (Manual) Monocytes % (Manual) Basophils % (Manual) Seg Neutrophils # Seg Neutrophils # Man Lymphocytes # (Manual) Monocytes # (Manual) Eosinophils # (Manual) Basophils # (Manual) PT INR D-Dimer ABG pH POC ABG pCO2 POC ABG pO2 ABG pO2 ABG HCO3 ABG O2 Saturation ABG Base Excess ABG Hemoglobin ABG Oxyhemoglobin ABG Potassium ABG Glucose Oxyhemoglobin Carboxyhemoglobin Sodium Potassium Chloride Carbon Dioxide BUN Creatinine Glucose POC Glucose 127 H 128 H 153 H Calcium Ferritin Total Bilirubin Alkaline Phosphatase Lactate Dehydrogenase Total Creatine Kinase CK-MB (CK-2) Rel Index Troponin T C-Reactive Protein Total Protein Albumin Prealbumin LDL Cholesterol Direct Arterial Blood Glucose Arterial Blood Ionized Calcium Urine WBC (Auto) 03/10/20 03/10/20 03/10/20 06:14 06:14 12:02 WBC 18.3 H RBC 3.45 L Hgb 9.5 L Hct 29.5 L MCV MCH RDW 16.1 H Plt Count 494 H Lymph % (Auto) Lymph # (Auto) [place] # (Auto) Seg Neutrophils % Seg Neuts % (Manual) 95.0 H Lymphocytes % (Manual) 1.0 L Monocytes % (Manual) Basophils % (Manual) Seg Neutrophils # Seg Neutrophils # Man 17.4 H Lymphocytes # (Manual) 0.2 L Monocytes # (Manual) Eosinophils # (Manual) Basophils # (Manual) PT INR D-Dimer ABG pH POC ABG pCO2 POC ABG pO2 ABG pO2 ABG HCO3 ABG O2 Saturation ABG Base Excess ABG Hemoglobin ABG Oxyhemoglobin ABG Potassium ABG Glucose Oxyhemoglobin Carboxyhemoglobin Sodium 149 H Potassium Chloride Carbon Dioxide 35 H BUN 34 H Creatinine 0.2 L D Glucose 177 H POC Glucose 151 H Calcium Ferritin Total Bilirubin Alkaline Phosphatase Lactate Dehydrogenase Total Creatine Kinase CK-MB (CK-2) Rel Index Troponin T C-Reactive Protein Total Protein Albumin Prealbumin LDL Cholesterol Direct Arterial Blood Glucose Arterial Blood Ionized Calcium Urine WBC (Auto) 03/10/20 03/10/20 03/11/20 17:41 23:53 05:02 WBC RBC Hgb Hct MCV MCH RDW Plt Count Lymph % (Auto) Lymph # (Auto) [place] # (Auto) Seg Neutrophils % Seg Neuts % (Manual) Lymphocytes % (Manual) Monocytes % (Manual) Basophils % (Manual) Seg Neutrophils # Seg Neutrophils # Man Lymphocytes # (Manual) Monocytes # (Manual) Eosinophils # (Manual) Basophils # (Manual) PT INR D-Dimer ABG pH POC ABG pCO2 POC ABG pO2 ABG pO2 ABG HCO3 ABG O2 Saturation ABG Base Excess ABG Hemoglobin ABG Oxyhemoglobin ABG Potassium ABG Glucose Oxyhemoglobin Carboxyhemoglobin Sodium Potassium Chloride Carbon Dioxide BUN Creatinine Glucose POC Glucose 168 H 142 H 146 H Calcium Ferritin Total Bilirubin Alkaline Phosphatase Lactate Dehydrogenase Total Creatine Kinase CK-MB (CK-2) Rel Index Troponin T C-Reactive Protein Total Protein Albumin Prealbumin LDL Cholesterol Direct Arterial Blood Glucose Arterial Blood Ionized Calcium Urine WBC (Auto) 03/11/20 03/11/20 03/11/20 11:30 14:01 14:01 WBC 19.7 H RBC 3.04 L Hgb 8.7 L Hct 25.8 L MCV MCH RDW 15.6 H Plt Count Lymph % (Auto) Lymph # (Auto) [place] # (Auto) Seg Neutrophils % Seg Neuts % (Manual) Lymphocytes % (Manual) Monocytes % (Manual) Basophils % (Manual) Seg Neutrophils # Seg Neutrophils # Man Lymphocytes # (Manual) Monocytes # (Manual) Eosinophils # (Manual) Basophils # (Manual) PT INR D-Dimer ABG pH POC ABG pCO2 POC ABG pO2 ABG pO2 ABG HCO3 ABG O2 Saturation ABG Base Excess ABG Hemoglobin ABG Oxyhemoglobin ABG Potassium ABG Glucose Oxyhemoglobin Carboxyhemoglobin Sodium 151 H Potassium Chloride Carbon Dioxide 37 H BUN Creatinine < 0.2 L Glucose 171 H POC Glucose 248 H Calcium Ferritin Total Bilirubin Alkaline Phosphatase Lactate Dehydrogenase Total Creatine Kinase CK-MB (CK-2) Rel Index Troponin T C-Reactive Protein Total Protein Albumin Prealbumin LDL Cholesterol Direct Arterial Blood Glucose Arterial Blood Ionized Calcium Urine WBC (Auto) 03/11/20 03/11/20 03/12/20 17:09 23:52 04:39 WBC 19.9 H RBC 3.16 L Hgb 8.9 L Hct 27.5 L MCV MCH RDW 15.7 H Plt Count Lymph % (Auto) 6.8 L Lymph # (Auto) [place] # (Auto) 1.2 H Seg Neutrophils % 86.0 H Seg Neuts % (Manual) Lymphocytes % (Manual) Monocytes % (Manual) Basophils % (Manual) Seg Neutrophils # 17.1 H Seg Neutrophils # Man Lymphocytes # (Manual) Monocytes # (Manual) Eosinophils # (Manual) Basophils # (Manual) PT INR D-Dimer ABG pH POC ABG pCO2 POC ABG pO2 ABG pO2 ABG HCO3 ABG O2 Saturation ABG Base Excess ABG Hemoglobin ABG Oxyhemoglobin ABG Potassium ABG Glucose Oxyhemoglobin Carboxyhemoglobin Sodium Potassium Chloride Carbon Dioxide BUN Creatinine Glucose POC Glucose 124 H 131 H Calcium Ferritin Total Bilirubin Alkaline Phosphatase Lactate Dehydrogenase Total Creatine Kinase CK-MB (CK-2) Rel Index Troponin T C-Reactive Protein Total Protein Albumin Prealbumin LDL Cholesterol Direct Arterial Blood Glucose Arterial Blood Ionized Calcium Urine WBC (Auto) 03/12/20 03/12/20 03/12/20 04:39 05:28 11:34 WBC RBC Hgb Hct MCV MCH RDW Plt Count Lymph % (Auto) Lymph # (Auto) [place] # (Auto) Seg Neutrophils % Seg Neuts % (Manual) Lymphocytes % (Manual) Monocytes % (Manual) Basophils % (Manual) Seg Neutrophils # Seg Neutrophils # Man Lymphocytes # (Manual) Monocytes # (Manual) Eosinophils # (Manual) Basophils # (Manual) PT INR D-Dimer ABG pH POC ABG pCO2 POC ABG pO2 ABG pO2 ABG HCO3 ABG O2 Saturation ABG Base Excess ABG Hemoglobin ABG Oxyhemoglobin ABG Potassium ABG Glucose Oxyhemoglobin Carboxyhemoglobin Sodium 147 H Potassium Chloride Carbon Dioxide 40 H BUN Creatinine < 0.2 L Glucose 175 H POC Glucose 167 H 144 H Calcium Ferritin Total Bilirubin Alkaline Phosphatase Lactate Dehydrogenase Total Creatine Kinase CK-MB (CK-2) Rel Index Troponin T C-Reactive Protein Total Protein Albumin Prealbumin LDL Cholesterol Direct Arterial Blood Glucose Arterial Blood Ionized Calcium Urine WBC (Auto) 03/12/20 03/12/20 03/13/20 17:32 23:57 05:57 WBC RBC Hgb Hct MCV MCH RDW Plt Count Lymph % (Auto) Lymph # (Auto) [place] # (Auto) Seg Neutrophils % Seg Neuts % (Manual) Lymphocytes % (Manual) Monocytes % (Manual) Basophils % (Manual) Seg Neutrophils # Seg Neutrophils # Man Lymphocytes # (Manual) Monocytes # (Manual) Eosinophils # (Manual) Basophils # (Manual) PT INR D-Dimer ABG pH POC ABG pCO2 POC ABG pO2 ABG pO2 ABG HCO3 ABG O2 Saturation ABG Base Excess ABG Hemoglobin ABG Oxyhemoglobin ABG Potassium ABG Glucose Oxyhemoglobin Carboxyhemoglobin Sodium Potassium Chloride Carbon Dioxide BUN Creatinine Glucose POC Glucose 141 H 137 H 161 H Calcium Ferritin Total Bilirubin Alkaline Phosphatase Lactate Dehydrogenase Total Creatine Kinase CK-MB (CK-2) Rel Index Troponin T C-Reactive Protein Total Protein Albumin Prealbumin LDL Cholesterol Direct Arterial Blood Glucose Arterial Blood Ionized Calcium Urine WBC (Auto) 03/13/20 03/13/20 03/13/20 12:28 14:14 18:39 WBC RBC Hgb Hct MCV MCH RDW Plt Count Lymph % (Auto) Lymph # (Auto) [place] # (Auto) Seg Neutrophils % Seg Neuts % (Manual) Lymphocytes % (Manual) Monocytes % (Manual) Basophils % (Manual) Seg Neutrophils # Seg Neutrophils # Man Lymphocytes # (Manual) Monocytes # (Manual) Eosinophils # (Manual) Basophils # (Manual) PT INR D-Dimer ABG pH POC ABG pCO2 POC ABG pO2 ABG pO2 ABG HCO3 ABG O2 Saturation ABG Base Excess ABG Hemoglobin ABG Oxyhemoglobin ABG Potassium ABG Glucose Oxyhemoglobin Carboxyhemoglobin Sodium Potassium Chloride Carbon Dioxide 39 H BUN Creatinine < 0.2 L Glucose 129 H POC Glucose 130 H 125 H Calcium Ferritin Total Bilirubin Alkaline Phosphatase Lactate Dehydrogenase Total Creatine Kinase CK-MB (CK-2) Rel Index Troponin T C-Reactive Protein Total Protein Albumin Prealbumin LDL Cholesterol Direct Arterial Blood Glucose Arterial Blood Ionized Calcium Urine WBC (Auto) 03/13/20 03/14/20 03/14/20 23:33 05:24 08:07 WBC 16.8 H RBC 2.81 L Hgb 7.9 L Hct 23.9 L MCV MCH RDW 15.9 H Plt Count Lymph % (Auto) Lymph # (Auto) [place] # (Auto) Seg Neutrophils % Seg Neuts % (Manual) 84.0 H Lymphocytes % (Manual) 10.0 L Monocytes % (Manual) Basophils % (Manual) Seg Neutrophils # Seg Neutrophils # Man 14.1 H Lymphocytes # (Manual) Monocytes # (Manual) Eosinophils # (Manual) Basophils # (Manual) PT INR D-Dimer ABG pH POC ABG pCO2 POC ABG pO2 ABG pO2 ABG HCO3 ABG O2 Saturation ABG Base Excess ABG Hemoglobin ABG Oxyhemoglobin ABG Potassium ABG Glucose Oxyhemoglobin Carboxyhemoglobin Sodium Potassium Chloride Carbon Dioxide BUN Creatinine Glucose POC Glucose 146 H 125 H Calcium Ferritin Total Bilirubin Alkaline Phosphatase Lactate Dehydrogenase Total Creatine Kinase CK-MB (CK-2) Rel Index Troponin T C-Reactive Protein Total Protein Albumin Prealbumin LDL Cholesterol Direct Arterial Blood Glucose Arterial Blood Ionized Calcium Urine WBC (Auto) 03/14/20 03/14/20 03/14/20 08:07 12:21 18:26 WBC RBC Hgb Hct MCV MCH RDW Plt Count Lymph % (Auto) Lymph # (Auto) [place] # (Auto) Seg Neutrophils % Seg Neuts % (Manual) Lymphocytes % (Manual) Monocytes % (Manual) Basophils % (Manual) Seg Neutrophils # Seg Neutrophils # Man Lymphocytes # (Manual) Monocytes # (Manual) Eosinophils # (Manual) Basophils # (Manual) PT INR D-Dimer ABG pH POC ABG pCO2 POC ABG pO2 ABG pO2 ABG HCO3 ABG O2 Saturation ABG Base Excess ABG Hemoglobin ABG Oxyhemoglobin ABG Potassium ABG Glucose Oxyhemoglobin Carboxyhemoglobin Sodium Potassium Chloride 97.0 L Carbon Dioxide 37 H BUN Creatinine < 0.2 L Glucose 129 H POC Glucose 109 H 142 H Calcium 8.3 L Ferritin Total Bilirubin Alkaline Phosphatase Lactate Dehydrogenase Total Creatine Kinase CK-MB (CK-2) Rel Index Troponin T C-Reactive Protein Total Protein Albumin Prealbumin LDL Cholesterol Direct Arterial Blood Glucose Arterial Blood Ionized Calcium Urine WBC (Auto) 03/14/20 03/15/20 03/15/20 23:57 05:46 08:06 WBC 19.7 H RBC 3.29 L Hgb 9.1 L Hct 28.0 L MCV MCH RDW 15.9 H Plt Count Lymph % (Auto) Lymph # (Auto) [place] # (Auto) Seg Neutrophils % Seg Neuts % (Manual) Lymphocytes % (Manual) Monocytes % (Manual) Basophils % (Manual) Seg Neutrophils # Seg Neutrophils # Man Lymphocytes # (Manual) Monocytes # (Manual) Eosinophils # (Manual) Basophils # (Manual) PT INR D-Dimer ABG pH POC ABG pCO2 POC ABG pO2 ABG pO2 ABG HCO3 ABG O2 Saturation ABG Base Excess ABG Hemoglobin ABG Oxyhemoglobin ABG Potassium ABG Glucose Oxyhemoglobin Carboxyhemoglobin Sodium Potassium Chloride Carbon Dioxide BUN Creatinine Glucose POC Glucose 157 H 118 H Calcium Ferritin Total Bilirubin Alkaline Phosphatase Lactate Dehydrogenase Total Creatine Kinase CK-MB (CK-2) Rel Index Troponin T C-Reactive Protein Total Protein Albumin Prealbumin LDL Cholesterol Direct Arterial Blood Glucose Arterial Blood Ionized Calcium Urine WBC (Auto) 03/15/20 03/15/20 03/15/20 08:06 12:44 18:09 WBC RBC Hgb Hct MCV MCH RDW Plt Count Lymph % (Auto) Lymph # (Auto) [place] # (Auto) Seg Neutrophils % Seg Neuts % (Manual) Lymphocytes % (Manual) Monocytes % (Manual) Basophils % (Manual) Seg Neutrophils # Seg Neutrophils # Man Lymphocytes # (Manual) Monocytes # (Manual) Eosinophils # (Manual) Basophils # (Manual) PT INR D-Dimer ABG pH POC ABG pCO2 POC ABG pO2 ABG pO2 ABG HCO3 ABG O2 Saturation ABG Base Excess ABG Hemoglobin ABG Oxyhemoglobin ABG Potassium ABG Glucose Oxyhemoglobin Carboxyhemoglobin Sodium 136 L Potassium Chloride 93.6 L Carbon Dioxide 37 H BUN Creatinine < 0.2 L Glucose 132 H POC Glucose 151 H 164 H Calcium Ferritin Total Bilirubin Alkaline Phosphatase Lactate Dehydrogenase Total Creatine Kinase CK-MB (CK-2) Rel Index Troponin T C-Reactive Protein Total Protein Albumin Prealbumin LDL Cholesterol Direct Arterial Blood Glucose Arterial Blood Ionized Calcium Urine WBC (Auto) 03/15/20 03/16/20 03/16/20 23:26 05:39 11:58 WBC RBC Hgb Hct MCV MCH RDW Plt Count Lymph % (Auto) Lymph # (Auto) [place] # (Auto) Seg Neutrophils % Seg Neuts % (Manual) Lymphocytes % (Manual) Monocytes % (Manual) Basophils % (Manual) Seg Neutrophils # Seg Neutrophils # Man Lymphocytes # (Manual) Monocytes # (Manual) Eosinophils # (Manual) Basophils # (Manual) PT INR D-Dimer ABG pH POC ABG pCO2 POC ABG pO2 ABG pO2 ABG HCO3 ABG O2 Saturation ABG Base Excess ABG Hemoglobin ABG Oxyhemoglobin ABG Potassium ABG Glucose Oxyhemoglobin Carboxyhemoglobin Sodium Potassium Chloride Carbon Dioxide BUN Creatinine Glucose POC Glucose 136 H 116 H 109 H Calcium Ferritin Total Bilirubin Alkaline Phosphatase Lactate Dehydrogenase Total Creatine Kinase CK-MB (CK-2) Rel Index Troponin T C-Reactive Protein Total Protein Albumin Prealbumin LDL Cholesterol Direct Arterial Blood Glucose Arterial Blood Ionized Calcium Urine WBC (Auto) 03/16/20 03/17/20 03/17/20 23:56 04:40 04:40 WBC 18.0 H RBC 3.33 L Hgb 9.5 L Hct 28.8 L MCV MCH RDW 16.4 H Plt Count 499 H Lymph % (Auto) Lymph # (Auto) [place] # (Auto) Seg Neutrophils % Seg Neuts % (Manual) 82.0 H Lymphocytes % (Manual) 8.0 L Monocytes % (Manual) Basophils % (Manual) Seg Neutrophils # Seg Neutrophils # Man 14.8 H Lymphocytes # (Manual) Monocytes # (Manual) 1.3 H Eosinophils # (Manual) Basophils # (Manual) 0.2 H PT INR D-Dimer ABG pH POC ABG pCO2 POC ABG pO2 ABG pO2 ABG HCO3 ABG O2 Saturation ABG Base Excess ABG Hemoglobin ABG Oxyhemoglobin ABG Potassium ABG Glucose Oxyhemoglobin Carboxyhemoglobin Sodium Potassium Chloride 97.7 L Carbon Dioxide 32 H BUN Creatinine < 0.2 L Glucose 114 H POC Glucose 131 H Calcium Ferritin Total Bilirubin Alkaline Phosphatase Lactate Dehydrogenase Total Creatine Kinase CK-MB (CK-2) Rel Index Troponin T C-Reactive Protein Total Protein Albumin Prealbumin LDL Cholesterol Direct Arterial Blood Glucose Arterial Blood Ionized Calcium Urine WBC (Auto) 03/18/20 03/18/20 03/18/20 00:21 05:21 11:55 WBC RBC Hgb Hct MCV MCH RDW Plt Count Lymph % (Auto) Lymph # (Auto) [place] # (Auto) Seg Neutrophils % Seg Neuts % (Manual) Lymphocytes % (Manual) Monocytes % (Manual) Basophils % (Manual) Seg Neutrophils # Seg Neutrophils # Man Lymphocytes # (Manual) Monocytes # (Manual) Eosinophils # (Manual) Basophils # (Manual) PT INR D-Dimer ABG pH POC ABG pCO2 POC ABG pO2 ABG pO2 ABG HCO3 ABG O2 Saturation ABG Base Excess ABG Hemoglobin ABG Oxyhemoglobin ABG Potassium ABG Glucose Oxyhemoglobin Carboxyhemoglobin Sodium Potassium Chloride Carbon Dioxide BUN Creatinine Glucose POC Glucose 124 H 138 H 119 H Calcium Ferritin Total Bilirubin Alkaline Phosphatase Lactate Dehydrogenase Total Creatine Kinase CK-MB (CK-2) Rel Index Troponin T C-Reactive Protein Total Protein Albumin Prealbumin LDL Cholesterol Direct Arterial Blood Glucose Arterial Blood Ionized Calcium Urine WBC (Auto) 03/18/20 03/18/20 03/19/20 17:03 23:58 05:24 WBC RBC Hgb Hct MCV MCH RDW Plt Count Lymph % (Auto) Lymph # (Auto) [place] # (Auto) Seg Neutrophils % Seg Neuts % (Manual) Lymphocytes % (Manual) Monocytes % (Manual) Basophils % (Manual) Seg Neutrophils # Seg Neutrophils # Man Lymphocytes # (Manual) Monocytes # (Manual) Eosinophils # (Manual) Basophils # (Manual) PT INR D-Dimer ABG pH POC ABG pCO2 POC ABG pO2 ABG pO2 ABG HCO3 ABG O2 Saturation ABG Base Excess ABG Hemoglobin ABG Oxyhemoglobin ABG Potassium ABG Glucose Oxyhemoglobin Carboxyhemoglobin Sodium Potassium Chloride Carbon Dioxide BUN Creatinine Glucose POC Glucose 128 H 128 H 115 H Calcium Ferritin Total Bilirubin Alkaline Phosphatase Lactate Dehydrogenase Total Creatine Kinase CK-MB (CK-2) Rel Index Troponin T C-Reactive Protein Total Protein Albumin Prealbumin LDL Cholesterol Direct Arterial Blood Glucose Arterial Blood Ionized Calcium Urine WBC (Auto) 03/19/20 03/19/20 03/19/20 08:05 08:05 11:56 WBC 16.8 H RBC 3.36 L Hgb 9.4 L Hct 28.8 L MCV MCH RDW 17.4 H Plt Count 567 H Lymph % (Auto) 7.8 L Lymph # (Auto) [place] # (Auto) 1.2 H Seg Neutrophils % 83.5 H Seg Neuts % (Manual) Lymphocytes % (Manual) Monocytes % (Manual) Basophils % (Manual) Seg Neutrophils # 14.1 H Seg Neutrophils # Man Lymphocytes # (Manual) Monocytes # (Manual) Eosinophils # (Manual) Basophils # (Manual) PT INR D-Dimer ABG pH POC ABG pCO2 POC ABG pO2 ABG pO2 ABG HCO3 ABG O2 Saturation ABG Base Excess ABG Hemoglobin ABG Oxyhemoglobin ABG Potassium ABG Glucose Oxyhemoglobin Carboxyhemoglobin Sodium Potassium Chloride Carbon Dioxide 36 H BUN Creatinine < 0.2 L Glucose 135 H POC Glucose 128 H Calcium Ferritin Total Bilirubin Alkaline Phosphatase Lactate Dehydrogenase Total Creatine Kinase CK-MB (CK-2) Rel Index Troponin T C-Reactive Protein Total Protein Albumin Prealbumin LDL Cholesterol Direct Arterial Blood Glucose Arterial Blood Ionized Calcium Urine WBC (Auto) 03/19/20 03/20/20 03/20/20 23:59 05:12 16:52 WBC RBC Hgb Hct MCV MCH RDW Plt Count Lymph % (Auto) Lymph # (Auto) [place] # (Auto) Seg Neutrophils % Seg Neuts % (Manual) Lymphocytes % (Manual) Monocytes % (Manual) Basophils % (Manual) Seg Neutrophils # Seg Neutrophils # Man Lymphocytes # (Manual) Monocytes # (Manual) Eosinophils # (Manual) Basophils # (Manual) PT INR D-Dimer ABG pH POC ABG pCO2 POC ABG pO2 ABG pO2 ABG HCO3 ABG O2 Saturation ABG Base Excess ABG Hemoglobin ABG Oxyhemoglobin ABG Potassium ABG Glucose Oxyhemoglobin Carboxyhemoglobin Sodium Potassium Chloride Carbon Dioxide BUN Creatinine Glucose POC Glucose 120 H 131 H 124 H Calcium Ferritin Total Bilirubin Alkaline Phosphatase Lactate Dehydrogenase Total Creatine Kinase CK-MB (CK-2) Rel Index Troponin T C-Reactive Protein Total Protein Albumin Prealbumin LDL Cholesterol Direct Arterial Blood Glucose Arterial Blood Ionized Calcium Urine WBC (Auto) 03/20/20 03/21/20 03/21/20 23:35 04:50 07:35 WBC 15.2 H RBC 3.39 L Hgb 9.4 L Hct 29.4 L MCV MCH RDW 17.6 H Plt Count 518 H Lymph % (Auto) Lymph # (Auto) [place] # (Auto) Seg Neutrophils % Seg Neuts % (Manual) 83.0 H Lymphocytes % (Manual) 10.0 L Monocytes % (Manual) Basophils % (Manual) 2.0 H Seg Neutrophils # Seg Neutrophils # Man 12.6 H Lymphocytes # (Manual) Monocytes # (Manual) Eosinophils # (Manual) Basophils # (Manual) 0.3 H PT INR D-Dimer ABG pH POC ABG pCO2 POC ABG pO2 ABG pO2 ABG HCO3 ABG O2 Saturation ABG Base Excess ABG Hemoglobin ABG Oxyhemoglobin ABG Potassium ABG Glucose Oxyhemoglobin Carboxyhemoglobin Sodium Potassium Chloride Carbon Dioxide BUN Creatinine Glucose POC Glucose 125 H 127 H Calcium Ferritin Total Bilirubin Alkaline Phosphatase Lactate Dehydrogenase Total Creatine Kinase CK-MB (CK-2) Rel Index Troponin T C-Reactive Protein Total Protein Albumin Prealbumin LDL Cholesterol Direct Arterial Blood Glucose Arterial Blood Ionized Calcium Urine WBC (Auto) 03/21/20 03/21/20 03/21/20 07:35 11:45 17:22 WBC RBC Hgb Hct MCV MCH RDW Plt Count Lymph % (Auto) Lymph # (Auto) [place] # (Auto) Seg Neutrophils % Seg Neuts % (Manual) Lymphocytes % (Manual) Monocytes % (Manual) Basophils % (Manual) Seg Neutrophils # Seg Neutrophils # Man Lymphocytes # (Manual) Monocytes # (Manual) Eosinophils # (Manual) Basophils # (Manual) PT INR D-Dimer ABG pH POC ABG pCO2 POC ABG pO2 ABG pO2 ABG HCO3 ABG O2 Saturation ABG Base Excess ABG Hemoglobin ABG Oxyhemoglobin ABG Potassium ABG Glucose Oxyhemoglobin Carboxyhemoglobin Sodium 136 L Potassium Chloride 97.7 L Carbon Dioxide 32 H BUN Creatinine < 0.2 L Glucose 103 H POC Glucose 126 H 120 H Calcium Ferritin Total Bilirubin Alkaline Phosphatase Lactate Dehydrogenase Total Creatine Kinase CK-MB (CK-2) Rel Index Troponin T C-Reactive Protein Total Protein Albumin Prealbumin LDL Cholesterol Direct Arterial Blood Glucose Arterial Blood Ionized Calcium Urine WBC (Auto) 03/22/20 03/22/20 03/22/20 05:09 06:34 06:34 WBC 17.5 H RBC 3.52 L Hgb 10.0 L Hct 30.7 L MCV MCH RDW 17.5 H Plt Count 499 H Lymph % (Auto) Lymph # (Auto) [place] # (Auto) Seg Neutrophils % Seg Neuts % (Manual) 80.0 H Lymphocytes % (Manual) 10.0 L Monocytes % (Manual) Basophils % (Manual) Seg Neutrophils # Seg Neutrophils # Man 14.0 H Lymphocytes # (Manual) Monocytes # (Manual) Eosinophils # (Manual) Basophils # (Manual) PT INR D-Dimer ABG pH POC ABG pCO2 POC ABG pO2 ABG pO2 ABG HCO3 ABG O2 Saturation ABG Base Excess ABG Hemoglobin ABG Oxyhemoglobin ABG Potassium ABG Glucose Oxyhemoglobin Carboxyhemoglobin Sodium Potassium Chloride 96.6 L Carbon Dioxide 38 H BUN Creatinine < 0.2 L Glucose 139 H POC Glucose 125 H Calcium Ferritin Total Bilirubin Alkaline Phosphatase Lactate Dehydrogenase Total Creatine Kinase CK-MB (CK-2) Rel Index Troponin T C-Reactive Protein Total Protein Albumin Prealbumin LDL Cholesterol Direct Arterial Blood Glucose Arterial Blood Ionized Calcium Urine WBC (Auto) 03/22/20 03/22/20 03/22/20 11:45 18:00 23:32 WBC RBC Hgb Hct MCV MCH RDW Plt Count Lymph % (Auto) Lymph # (Auto) [place] # (Auto) Seg Neutrophils % Seg Neuts % (Manual) Lymphocytes % (Manual) Monocytes % (Manual) Basophils % (Manual) Seg Neutrophils # Seg Neutrophils # Man Lymphocytes # (Manual) Monocytes # (Manual) Eosinophils # (Manual) Basophils # (Manual) PT INR D-Dimer ABG pH POC ABG pCO2 POC ABG pO2 ABG pO2 ABG HCO3 ABG O2 Saturation ABG Base Excess ABG Hemoglobin ABG Oxyhemoglobin ABG Potassium ABG Glucose Oxyhemoglobin Carboxyhemoglobin Sodium Potassium Chloride Carbon Dioxide BUN Creatinine Glucose POC Glucose 135 H 133 H Calcium Ferritin Total Bilirubin Alkaline Phosphatase Lactate Dehydrogenase Total Creatine Kinase CK-MB (CK-2) Rel Index Troponin T 0.113 H* C-Reactive Protein Total Protein Albumin Prealbumin LDL Cholesterol Direct Arterial Blood Glucose Arterial Blood Ionized Calcium Urine WBC (Auto) 03/23/20 03/23/20 03/23/20 01:47 06:21 07:57 WBC RBC Hgb Hct MCV MCH RDW Plt Count Lymph % (Auto) Lymph # (Auto) [place] # (Auto) Seg Neutrophils % Seg Neuts % (Manual) Lymphocytes % (Manual) Monocytes % (Manual) Basophils % (Manual) Seg Neutrophils # Seg Neutrophils # Man Lymphocytes # (Manual) Monocytes # (Manual) Eosinophils # (Manual) Basophils # (Manual) PT INR D-Dimer ABG pH POC ABG pCO2 POC ABG pO2 ABG pO2 ABG HCO3 ABG O2 Saturation ABG Base Excess ABG Hemoglobin ABG Oxyhemoglobin ABG Potassium ABG Glucose Oxyhemoglobin Carboxyhemoglobin Sodium Potassium Chloride Carbon Dioxide BUN Creatinine Glucose POC Glucose 130 H Calcium Ferritin Total Bilirubin Alkaline Phosphatase Lactate Dehydrogenase Total Creatine Kinase CK-MB (CK-2) Rel Index Troponin T 0.143 H* D 0.105 H* D C-Reactive Protein Total Protein Albumin Prealbumin LDL Cholesterol Direct Arterial Blood Glucose Arterial Blood Ionized Calcium Urine WBC (Auto) 03/23/20 03/24/20 03/24/20 12:02 05:33 07:15 WBC 18.0 H RBC Hgb 11.0 L Hct 34.0 L MCV MCH RDW 17.4 H Plt Count 520 H Lymph % (Auto) Lymph # (Auto) [place] # (Auto) Seg Neutrophils % Seg Neuts % (Manual) 88.0 H Lymphocytes % (Manual) 7.0 L Monocytes % (Manual) Basophils % (Manual) Seg Neutrophils # Seg Neutrophils # Man 15.8 H Lymphocytes # (Manual) Monocytes # (Manual) Eosinophils # (Manual) Basophils # (Manual) PT INR D-Dimer ABG pH POC ABG pCO2 POC ABG pO2 ABG pO2 ABG HCO3 ABG O2 Saturation ABG Base Excess ABG Hemoglobin ABG Oxyhemoglobin ABG Potassium ABG Glucose Oxyhemoglobin Carboxyhemoglobin Sodium Potassium Chloride Carbon Dioxide BUN Creatinine Glucose POC Glucose 137 H 112 H Calcium Ferritin Total Bilirubin Alkaline Phosphatase Lactate Dehydrogenase Total Creatine Kinase CK-MB (CK-2) Rel Index Troponin T C-Reactive Protein Total Protein Albumin Prealbumin LDL Cholesterol Direct Arterial Blood Glucose Arterial Blood Ionized Calcium Urine WBC (Auto) 03/24/20 03/24/2020 07:15 11:22 23:30 WBC RBC Hgb Hct MCV MCH RDW Plt Count Lymph % (Auto) Lymph # (Auto) [place] # (Auto) Seg Neutrophils % Seg Neuts % (Manual) Lymphocytes % (Manual) Monocytes % (Manual) Basophils % (Manual) Seg Neutrophils # Seg Neutrophils # Man Lymphocytes # (Manual) Monocytes # (Manual) Eosinophils # (Manual) Basophils # (Manual) PT INR D-Dimer ABG pH POC ABG pCO2 POC ABG pO2 ABG pO2 ABG HCO3 ABG O2 Saturation ABG Base Excess ABG Hemoglobin ABG Oxyhemoglobin ABG Potassium ABG Glucose Oxyhemoglobin Carboxyhemoglobin Sodium Potassium Chloride 96.6 L Carbon Dioxide 38 H BUN Creatinine < 0.2 L Glucose 141 H POC Glucose 130 H 120 H Calcium Ferritin Total Bilirubin Alkaline Phosphatase Lactate Dehydrogenase Total Creatine Kinase CK-MB (CK-2) Rel Index Troponin T C-Reactive Protein Total Protein Albumin Prealbumin LDL Cholesterol Direct Arterial Blood Glucose Arterial Blood Ionized Calcium Urine WBC (Auto) 03/25/20 03/25/20 03/25/20 05:48 17:53 23:18 WBC RBC Hgb Hct MCV MCH RDW Plt Count Lymph % (Auto) Lymph # (Auto) [place] # (Auto) Seg Neutrophils % Seg Neuts % (Manual) Lymphocytes % (Manual) Monocytes % (Manual) Basophils % (Manual) Seg Neutrophils # Seg Neutrophils # Man Lymphocytes # (Manual) Monocytes # (Manual) Eosinophils # (Manual) Basophils # (Manual) PT INR D-Dimer ABG pH POC ABG pCO2 POC ABG pO2 ABG pO2 ABG HCO3 ABG O2 Saturation ABG Base Excess ABG Hemoglobin ABG Oxyhemoglobin ABG Potassium ABG Glucose Oxyhemoglobin Carboxyhemoglobin Sodium Potassium Chloride Carbon Dioxide BUN Creatinine Glucose POC Glucose 124 H 109 H 131 H Calcium Ferritin Total Bilirubin Alkaline Phosphatase Lactate Dehydrogenase Total Creatine Kinase CK-MB (CK-2) Rel Index Troponin T C-Reactive Protein Total Protein Albumin Prealbumin LDL Cholesterol Direct Arterial Blood Glucose Arterial Blood Ionized Calcium Urine WBC (Auto) 03/26/20 03/26/20 03/26/20 05:21 08:49 08:49 WBC 19.7 H RBC Hgb 10.7 L Hct 33.5 L MCV MCH 27 L RDW 17.1 H Plt Count 480 H Lymph % (Auto) 5.7 L Lymph # (Auto) 1.1 L [place] # (Auto) 1.2 H Seg Neutrophils % 87.7 H Seg Neuts % (Manual) Lymphocytes % (Manual) Monocytes % (Manual) Basophils % (Manual) Seg Neutrophils # 17.2 H Seg Neutrophils # Man Lymphocytes # (Manual) Monocytes # (Manual) Eosinophils # (Manual) Basophils # (Manual) PT INR D-Dimer ABG pH POC ABG pCO2 POC ABG pO2 ABG pO2 ABG HCO3 ABG O2 Saturation ABG Base Excess ABG Hemoglobin ABG Oxyhemoglobin ABG Potassium ABG Glucose Oxyhemoglobin Carboxyhemoglobin Sodium Potassium Chloride 97.2 L Carbon Dioxide 36 H BUN Creatinine < 0.2 L Glucose 127 H POC Glucose 116 H Calcium Ferritin Total Bilirubin Alkaline Phosphatase Lactate Dehydrogenase Total Creatine Kinase CK-MB (CK-2) Rel Index Troponin T C-Reactive Protein Total Protein Albumin Prealbumin LDL Cholesterol Direct Arterial Blood Glucose Arterial Blood Ionized Calcium Urine WBC (Auto) 03/26/20 03/26/20 03/26/20 11:38 18:44 23:06 WBC RBC Hgb Hct MCV MCH RDW Plt Count Lymph % (Auto) Lymph # (Auto) [place] # (Auto) Seg Neutrophils % Seg Neuts % (Manual) Lymphocytes % (Manual) Monocytes % (Manual) Basophils % (Manual) Seg Neutrophils # Seg Neutrophils # Man Lymphocytes # (Manual) Monocytes # (Manual) Eosinophils # (Manual) Basophils # (Manual) PT INR D-Dimer ABG pH POC ABG pCO2 POC ABG pO2 ABG pO2 ABG HCO3 ABG O2 Saturation ABG Base Excess ABG Hemoglobin ABG Oxyhemoglobin ABG Potassium ABG Glucose Oxyhemoglobin Carboxyhemoglobin Sodium Potassium Chloride Carbon Dioxide BUN Creatinine Glucose POC Glucose 120 H 111 H 134 H Calcium Ferritin Total Bilirubin Alkaline Phosphatase Lactate Dehydrogenase Total Creatine Kinase CK-MB (CK-2) Rel Index Troponin T C-Reactive Protein Total Protein Albumin Prealbumin LDL Cholesterol Direct Arterial Blood Glucose Arterial Blood Ionized Calcium Urine WBC (Auto) 03/27/20 03/27/20 03/27/20 05:41 05:59 05:59 WBC 18.6 H RBC Hgb 10.1 L Hct 31.4 L MCV MCH RDW 17.2 H Plt Count Lymph % (Auto) 8.0 L Lymph # (Auto) [place] # (Auto) 1.2 H Seg Neutrophils % 84.7 H Seg Neuts % (Manual) Lymphocytes % (Manual) Monocytes % (Manual) Basophils % (Manual) Seg Neutrophils # 15.8 H Seg Neutrophils # Man Lymphocytes # (Manual) Monocytes # (Manual) Eosinophils # (Manual) Basophils # (Manual) PT INR D-Dimer ABG pH POC ABG pCO2 POC ABG pO2 ABG pO2 ABG HCO3 ABG O2 Saturation ABG Base Excess ABG Hemoglobin ABG Oxyhemoglobin ABG Potassium ABG Glucose Oxyhemoglobin Carboxyhemoglobin Sodium Potassium Chloride Carbon Dioxide 34 H BUN Creatinine < 0.2 L Glucose 127 H POC Glucose 129 H Calcium Ferritin Total Bilirubin Alkaline Phosphatase Lactate Dehydrogenase Total Creatine Kinase CK-MB (CK-2) Rel Index Troponin T C-Reactive Protein Total Protein Albumin Prealbumin LDL Cholesterol Direct Arterial Blood Glucose Arterial Blood Ionized Calcium Urine WBC (Auto) 03/27/20 03/27/20 03/28/20 17:28 23:22 05:23 WBC RBC Hgb Hct MCV MCH RDW Plt Count Lymph % (Auto) Lymph # (Auto) [place] # (Auto) Seg Neutrophils % Seg Neuts % (Manual) Lymphocytes % (Manual) Monocytes % (Manual) Basophils % (Manual) Seg Neutrophils # Seg Neutrophils # Man Lymphocytes # (Manual) Monocytes # (Manual) Eosinophils # (Manual) Basophils # (Manual) PT INR D-Dimer ABG pH POC ABG pCO2 POC ABG pO2 ABG pO2 ABG HCO3 ABG O2 Saturation ABG Base Excess ABG Hemoglobin ABG Oxyhemoglobin ABG Potassium ABG Glucose Oxyhemoglobin Carboxyhemoglobin Sodium Potassium Chloride Carbon Dioxide BUN Creatinine Glucose POC Glucose 108 H 119 H 129 H Calcium Ferritin Total Bilirubin Alkaline Phosphatase Lactate Dehydrogenase Total Creatine Kinase CK-MB (CK-2) Rel Index Troponin T C-Reactive Protein Total Protein Albumin Prealbumin LDL Cholesterol Direct Arterial Blood Glucose Arterial Blood Ionized Calcium Urine WBC (Auto) 03/28/20 03/28/20 03/28/20 10:28 10:28 11:36 WBC 23.6 H RBC 3.62 L Hgb 10.0 L Hct 30.8 L MCV MCH RDW 16.4 H Plt Count Lymph % (Auto) Lymph # (Auto) [place] # (Auto) Seg Neutrophils % Seg Neuts % (Manual) 89.0 H Lymphocytes % (Manual) 5.0 L Monocytes % (Manual) Basophils % (Manual) Seg Neutrophils # Seg Neutrophils # Man 21.0 H Lymphocytes # (Manual) Monocytes # (Manual) 1.2 H Eosinophils # (Manual) Basophils # (Manual) 0.2 H PT INR D-Dimer ABG pH POC ABG pCO2 POC ABG pO2 ABG pO2 ABG HCO3 ABG O2 Saturation ABG Base Excess ABG Hemoglobin ABG Oxyhemoglobin ABG Potassium ABG Glucose Oxyhemoglobin Carboxyhemoglobin Sodium 134 L Potassium Chloride 94.2 L Carbon Dioxide 35 H BUN Creatinine < 0.2 L Glucose 134 H POC Glucose Calcium Ferritin Total Bilirubin Alkaline Phosphatase Lactate Dehydrogenase Total Creatine Kinase CK-MB (CK-2) Rel Index Troponin T C-Reactive Protein Total Protein Albumin Prealbumin LDL Cholesterol Direct Arterial Blood Glucose Arterial Blood Ionized Calcium Urine WBC (Auto) 39.0 H 03/28/20 03/28/20 03/28/20 11:51 17:08 17:17 WBC RBC Hgb Hct MCV MCH RDW Plt Count Lymph % (Auto) Lymph # (Auto) [place] # (Auto) Seg Neutrophils % Seg Neuts % (Manual) Lymphocytes % (Manual) Monocytes % (Manual) Basophils % (Manual) Seg Neutrophils # Seg Neutrophils # Man Lymphocytes # (Manual) Monocytes # (Manual) Eosinophils # (Manual) Basophils # (Manual) PT INR D-Dimer ABG pH POC ABG pCO2 POC ABG pO2 ABG pO2 ABG HCO3 ABG O2 Saturation ABG Base Excess ABG Hemoglobin ABG Oxyhemoglobin ABG Potassium ABG Glucose Oxyhemoglobin Carboxyhemoglobin Sodium Potassium Chloride Carbon Dioxide BUN Creatinine Glucose POC Glucose 123 H 112 H Calcium Ferritin Total Bilirubin Alkaline Phosphatase Lactate Dehydrogenase Total Creatine Kinase 47 L CK-MB (CK-2) Rel Index 4.6 H Troponin T 0.090 H C-Reactive Protein Total Protein Albumin Prealbumin LDL Cholesterol Direct Arterial Blood Glucose Arterial Blood Ionized Calcium Urine WBC (Auto) 03/28/20 03/29/20 03/29/20 23:22 05:22 10:58 WBC RBC Hgb Hct MCV MCH RDW Plt Count Lymph % (Auto) Lymph # (Auto) [place] # (Auto) Seg Neutrophils % Seg Neuts % (Manual) Lymphocytes % (Manual) Monocytes % (Manual) Basophils % (Manual) Seg Neutrophils # Seg Neutrophils # Man Lymphocytes # (Manual) Monocytes # (Manual) Eosinophils # (Manual) Basophils # (Manual) PT INR D-Dimer ABG pH POC ABG pCO2 POC ABG pO2 ABG pO2 ABG HCO3 ABG O2 Saturation ABG Base Excess ABG Hemoglobin ABG Oxyhemoglobin ABG Potassium ABG Glucose Oxyhemoglobin Carboxyhemoglobin Sodium Potassium Chloride Carbon Dioxide BUN Creatinine Glucose POC Glucose 122 H 116 H 133 H Calcium Ferritin Total Bilirubin Alkaline Phosphatase Lactate Dehydrogenase Total Creatine Kinase CK-MB (CK-2) Rel Index Troponin T C-Reactive Protein Total Protein Albumin Prealbumin LDL Cholesterol Direct Arterial Blood Glucose Arterial Blood Ionized Calcium Urine WBC (Auto) 03/29/20 03/29/20 03/30/20 17:18 23:14 04:57 WBC RBC Hgb Hct MCV MCH RDW Plt Count Lymph % (Auto) Lymph # (Auto) [place] # (Auto) Seg Neutrophils % Seg Neuts % (Manual) Lymphocytes % (Manual) Monocytes % (Manual) Basophils % (Manual) Seg Neutrophils # Seg Neutrophils # Man Lymphocytes # (Manual) Monocytes # (Manual) Eosinophils # (Manual) Basophils # (Manual) PT INR D-Dimer ABG pH POC ABG pCO2 POC ABG pO2 ABG pO2 ABG HCO3 ABG O2 Saturation ABG Base Excess ABG Hemoglobin ABG Oxyhemoglobin ABG Potassium ABG Glucose Oxyhemoglobin Carboxyhemoglobin Sodium Potassium Chloride Carbon Dioxide BUN Creatinine Glucose POC Glucose 111 H 114 H 130 H Calcium Ferritin Total Bilirubin Alkaline Phosphatase Lactate Dehydrogenase Total Creatine Kinase CK-MB (CK-2) Rel Index Troponin T C-Reactive Protein Total Protein Albumin Prealbumin LDL Cholesterol Direct Arterial Blood Glucose Arterial Blood Ionized Calcium Urine WBC (Auto) 03/30/20 03/30/20 03/30/20 11:38 14:47 14:47 WBC 19.9 H RBC Hgb 10.9 L Hct 34.4 L MCV MCH 27 L RDW 16.5 H Plt Count 441 H Lymph % (Auto) 6.4 L Lymph # (Auto) [place] # (Auto) 1.4 H Seg Neutrophils % 86.1 H Seg Neuts % (Manual) Lymphocytes % (Manual) Monocytes % (Manual) Basophils % (Manual) Seg Neutrophils # 17.1 H Seg Neutrophils # Man Lymphocytes # (Manual) Monocytes # (Manual) Eosinophils # (Manual) Basophils # (Manual) PT INR D-Dimer ABG pH POC ABG pCO2 POC ABG pO2 ABG pO2 ABG HCO3 ABG O2 Saturation ABG Base Excess ABG Hemoglobin ABG Oxyhemoglobin ABG Potassium ABG Glucose Oxyhemoglobin Carboxyhemoglobin Sodium 133 L Potassium Chloride 94.6 L Carbon Dioxide 33 H BUN Creatinine < 0.2 L Glucose 194 H POC Glucose 139 H Calcium Ferritin Total Bilirubin Alkaline Phosphatase Lactate Dehydrogenase Total Creatine Kinase CK-MB (CK-2) Rel Index Troponin T C-Reactive Protein Total Protein Albumin 2.8 L Prealbumin LDL Cholesterol Direct Arterial Blood Glucose Arterial Blood Ionized Calcium Urine WBC (Auto) 03/30/20 03/31/20 03/31/20 17:07 05:02 15:21 WBC RBC Hgb Hct MCV MCH RDW Plt Count Lymph % (Auto) Lymph # (Auto) [place] # (Auto) Seg Neutrophils % Seg Neuts % (Manual) Lymphocytes % (Manual) Monocytes % (Manual) Basophils % (Manual) Seg Neutrophils # Seg Neutrophils # Man Lymphocytes # (Manual) Monocytes # (Manual) Eosinophils # (Manual) Basophils # (Manual) PT INR D-Dimer ABG pH POC ABG pCO2 POC ABG pO2 ABG pO2 ABG HCO3 ABG O2 Saturation ABG Base Excess ABG Hemoglobin ABG Oxyhemoglobin ABG Potassium ABG Glucose Oxyhemoglobin Carboxyhemoglobin Sodium Potassium Chloride Carbon Dioxide BUN Creatinine Glucose POC Glucose 163 H 108 H 110 H Calcium Ferritin Total Bilirubin Alkaline Phosphatase Lactate Dehydrogenase Total Creatine Kinase CK-MB (CK-2) Rel Index Troponin T C-Reactive Protein Total Protein Albumin Prealbumin LDL Cholesterol Direct Arterial Blood Glucose Arterial Blood Ionized Calcium Urine WBC (Auto) 03/31/20 03/31/20 04/01/20 17:58 23:19 05:09 WBC RBC Hgb Hct MCV MCH RDW Plt Count Lymph % (Auto) Lymph # (Auto) [place] # (Auto) Seg Neutrophils % Seg Neuts % (Manual) Lymphocytes % (Manual) Monocytes % (Manual) Basophils % (Manual) Seg Neutrophils # Seg Neutrophils # Man Lymphocytes # (Manual) Monocytes # (Manual) Eosinophils # (Manual) Basophils # (Manual) PT INR D-Dimer ABG pH POC ABG pCO2 POC ABG pO2 ABG pO2 ABG HCO3 ABG O2 Saturation ABG Base Excess ABG Hemoglobin ABG Oxyhemoglobin ABG Potassium ABG Glucose Oxyhemoglobin Carboxyhemoglobin Sodium Potassium Chloride Carbon Dioxide BUN Creatinine Glucose POC Glucose 110 H 131 H 124 H Calcium Ferritin Total Bilirubin Alkaline Phosphatase Lactate Dehydrogenase Total Creatine Kinase CK-MB (CK-2) Rel Index Troponin T C-Reactive Protein Total Protein Albumin Prealbumin LDL Cholesterol Direct Arterial Blood Glucose Arterial Blood Ionized Calcium Urine WBC (Auto) 04/01/20 04/01/20 04/01/20 11:50 17:01 23:21 WBC RBC Hgb Hct MCV MCH RDW Plt Count Lymph % (Auto) Lymph # (Auto) [place] # (Auto) Seg Neutrophils % Seg Neuts % (Manual) Lymphocytes % (Manual) Monocytes % (Manual) Basophils % (Manual) Seg Neutrophils # Seg Neutrophils # Man Lymphocytes # (Manual) Monocytes # (Manual) Eosinophils # (Manual) Basophils # (Manual) PT INR D-Dimer ABG pH POC ABG pCO2 POC ABG pO2 ABG pO2 ABG HCO3 ABG O2 Saturation ABG Base Excess ABG Hemoglobin ABG Oxyhemoglobin ABG Potassium ABG Glucose Oxyhemoglobin Carboxyhemoglobin Sodium Potassium Chloride Carbon Dioxide BUN Creatinine Glucose POC Glucose 136 H 115 H 124 H Calcium Ferritin Total Bilirubin Alkaline Phosphatase Lactate Dehydrogenase Total Creatine Kinase CK-MB (CK-2) Rel Index Troponin T C-Reactive Protein Total Protein Albumin Prealbumin LDL Cholesterol Direct Arterial Blood Glucose Arterial Blood Ionized Calcium Urine WBC (Auto) 04/02/20 04/02/20 04/02/20 05:27 11:58 17:58 WBC RBC Hgb Hct MCV MCH RDW Plt Count Lymph % (Auto) Lymph # (Auto) [place] # (Auto) Seg Neutrophils % Seg Neuts % (Manual) Lymphocytes % (Manual) Monocytes % (Manual) Basophils % (Manual) Seg Neutrophils # Seg Neutrophils # Man Lymphocytes # (Manual) Monocytes # (Manual) Eosinophils # (Manual) Basophils # (Manual) PT INR D-Dimer ABG pH POC ABG pCO2 POC ABG pO2 ABG pO2 ABG HCO3 ABG O2 Saturation ABG Base Excess ABG Hemoglobin ABG Oxyhemoglobin ABG Potassium ABG Glucose Oxyhemoglobin Carboxyhemoglobin Sodium Potassium Chloride Carbon Dioxide BUN Creatinine Glucose POC Glucose 117 H 133 H 122 H Calcium Ferritin Total Bilirubin Alkaline Phosphatase Lactate Dehydrogenase Total Creatine Kinase CK-MB (CK-2) Rel Index Troponin T C-Reactive Protein Total Protein Albumin Prealbumin LDL Cholesterol Direct Arterial Blood Glucose Arterial Blood Ionized Calcium Urine WBC (Auto) 04/02/20 04/03/20 04/03/20 23:12 05:11 11:11 WBC RBC Hgb Hct MCV MCH RDW Plt Count Lymph % (Auto) Lymph # (Auto) [place] # (Auto) Seg Neutrophils % Seg Neuts % (Manual) Lymphocytes % (Manual) Monocytes % (Manual) Basophils % (Manual) Seg Neutrophils # Seg Neutrophils # Man Lymphocytes # (Manual) Monocytes # (Manual) Eosinophils # (Manual) Basophils # (Manual) PT INR D-Dimer ABG pH POC ABG pCO2 POC ABG pO2 ABG pO2 ABG HCO3 ABG O2 Saturation ABG Base Excess ABG Hemoglobin ABG Oxyhemoglobin ABG Potassium ABG Glucose Oxyhemoglobin Carboxyhemoglobin Sodium Potassium Chloride Carbon Dioxide BUN Creatinine Glucose POC Glucose 130 H 139 H 136 H Calcium Ferritin Total Bilirubin Alkaline Phosphatase Lactate Dehydrogenase Total Creatine Kinase CK-MB (CK-2) Rel Index Troponin T C-Reactive Protein Total Protein Albumin Prealbumin LDL Cholesterol Direct Arterial Blood Glucose Arterial Blood Ionized Calcium Urine WBC (Auto) 04/03/20 04/03/20 04/04/20 16:51 23:25 05:29 WBC RBC Hgb Hct MCV MCH RDW Plt Count Lymph % (Auto) Lymph # (Auto) [place] # (Auto) Seg Neutrophils % Seg Neuts % (Manual) Lymphocytes % (Manual) Monocytes % (Manual) Basophils % (Manual) Seg Neutrophils # Seg Neutrophils # Man Lymphocytes # (Manual) Monocytes # (Manual) Eosinophils # (Manual) Basophils # (Manual) PT INR D-Dimer ABG pH POC ABG pCO2 POC ABG pO2 ABG pO2 ABG HCO3 ABG O2 Saturation ABG Base Excess ABG Hemoglobin ABG Oxyhemoglobin ABG Potassium ABG Glucose Oxyhemoglobin Carboxyhemoglobin Sodium Potassium Chloride Carbon Dioxide BUN Creatinine Glucose POC Glucose 118 H 111 H 126 H Calcium Ferritin Total Bilirubin Alkaline Phosphatase Lactate Dehydrogenase Total Creatine Kinase CK-MB (CK-2) Rel Index Troponin T C-Reactive Protein Total Protein Albumin Prealbumin LDL Cholesterol Direct Arterial Blood Glucose Arterial Blood Ionized Calcium Urine WBC (Auto) 04/04/20 04/04/20 04/04/20 11:47 17:41 23:05 WBC RBC Hgb Hct MCV MCH RDW Plt Count Lymph % (Auto) Lymph # (Auto) [place] # (Auto) Seg Neutrophils % Seg Neuts % (Manual) Lymphocytes % (Manual) Monocytes % (Manual) Basophils % (Manual) Seg Neutrophils # Seg Neutrophils # Man Lymphocytes # (Manual) Monocytes # (Manual) Eosinophils # (Manual) Basophils # (Manual) PT INR D-Dimer ABG pH POC ABG pCO2 POC ABG pO2 ABG pO2 ABG HCO3 ABG O2 Saturation ABG Base Excess ABG Hemoglobin ABG Oxyhemoglobin ABG Potassium ABG Glucose Oxyhemoglobin Carboxyhemoglobin Sodium Potassium Chloride Carbon Dioxide BUN Creatinine Glucose POC Glucose 123 H 120 H 119 H Calcium Ferritin Total Bilirubin Alkaline Phosphatase Lactate Dehydrogenase Total Creatine Kinase CK-MB (CK-2) Rel Index Troponin T C-Reactive Protein Total Protein Albumin Prealbumin LDL Cholesterol Direct Arterial Blood Glucose Arterial Blood Ionized Calcium Urine WBC (Auto) 04/05/20 04/05/20 04/05/20 05:14 12:16 18:48 WBC RBC Hgb Hct MCV MCH RDW Plt Count Lymph % (Auto) Lymph # (Auto) [place] # (Auto) Seg Neutrophils % Seg Neuts % (Manual) Lymphocytes % (Manual) Monocytes % (Manual) Basophils % (Manual) Seg Neutrophils # Seg Neutrophils # Man Lymphocytes # (Manual) Monocytes # (Manual) Eosinophils # (Manual) Basophils # (Manual) PT INR D-Dimer ABG pH POC ABG pCO2 POC ABG pO2 ABG pO2 ABG HCO3 ABG O2 Saturation ABG Base Excess ABG Hemoglobin ABG Oxyhemoglobin ABG Potassium ABG Glucose Oxyhemoglobin Carboxyhemoglobin Sodium Potassium Chloride Carbon Dioxide BUN Creatinine Glucose POC Glucose 123 H 148 H 106 H Calcium Ferritin Total Bilirubin Alkaline Phosphatase Lactate Dehydrogenase Total Creatine Kinase CK-MB (CK-2) Rel Index Troponin T C-Reactive Protein Total Protein Albumin Prealbumin LDL Cholesterol Direct Arterial Blood Glucose Arterial Blood Ionized Calcium Urine WBC (Auto) 04/06/20 04/06/20 04/06/20 00:47 03:26 08:24 WBC RBC Hgb Hct MCV MCH RDW Plt Count Lymph % (Auto) Lymph # (Auto) Terrell # (Auto) Seg Neutrophils % Seg Neuts % (Manual) Lymphocytes % (Manual) Monocytes % (Manual) Basophils % (Manual) Seg Neutrophils # Seg Neutrophils # Man Lymphocytes # (Manual) Monocytes # (Manual) Eosinophils # (Manual) Basophils # (Manual) PT INR D-Dimer ABG pH POC ABG pCO2 POC ABG pO2 ABG pO2 ABG HCO3 ABG O2 Saturation ABG Base Excess ABG Hemoglobin ABG Oxyhemoglobin ABG Potassium ABG Glucose Oxyhemoglobin Carboxyhemoglobin Sodium Potassium Chloride Carbon Dioxide BUN Creatinine Glucose POC Glucose 129 H 134 H 131 H Calcium Ferritin Total Bilirubin Alkaline Phosphatase Lactate Dehydrogenase Total Creatine Kinase CK-MB (CK-2) Rel Index Troponin T C-Reactive Protein Total Protein Albumin Prealbumin LDL Cholesterol Direct Arterial Blood Glucose Arterial Blood Ionized Calcium Urine WBC (Auto) 04/06/20 04/06/20 04/06/20 11:16 16:27 23:01 WBC RBC Hgb Hct MCV MCH RDW Plt Count Lymph % (Auto) Lymph # (Auto) Ter[place] # (Auto) Seg Neutrophils % Seg Neuts % (Manual) Lymphocytes % (Manual) Monocytes % (Manual) Basophils % (Manual) Seg Neutrophils # Seg Neutrophils # Man Lymphocytes # (Manual) Monocytes # (Manual) Eosinophils # (Manual) Basophils # (Manual) PT INR D-Dimer ABG pH POC ABG pCO2 POC ABG pO2 ABG pO2 ABG HCO3 ABG O2 Saturation ABG Base Excess ABG Hemoglobin ABG Oxyhemoglobin ABG Potassium ABG Glucose Oxyhemoglobin Carboxyhemoglobin Sodium Potassium Chloride Carbon Dioxide BUN Creatinine Glucose POC Glucose 131 H 107 H 125 H Calcium Ferritin Total Bilirubin Alkaline Phosphatase Lactate Dehydrogenase Total Creatine Kinase CK-MB (CK-2) Rel Index Troponin T C-Reactive Protein Total Protein Albumin Prealbumin LDL Cholesterol Direct Arterial Blood Glucose Arterial Blood Ionized Calcium Urine WBC (Auto) 04/07/20 04/07/20 04/07/20 05:24 12:41 17:40 WBC RBC Hgb Hct MCV MCH RDW Plt Count Lymph % (Auto) Lymph # (Auto) [place] # (Auto) Seg Neutrophils % Seg Neuts % (Manual) Lymphocytes % (Manual) Monocytes % (Manual) Basophils % (Manual) Seg Neutrophils # Seg Neutrophils # Man Lymphocytes # (Manual) Monocytes # (Manual) Eosinophils # (Manual) Basophils # (Manual) PT INR D-Dimer ABG pH POC ABG pCO2 POC ABG pO2 ABG pO2 ABG HCO3 ABG O2 Saturation ABG Base Excess ABG Hemoglobin ABG Oxyhemoglobin ABG Potassium ABG Glucose Oxyhemoglobin Carboxyhemoglobin Sodium Potassium Chloride Carbon Dioxide BUN Creatinine Glucose POC Glucose 125 H 145 H 123 H Calcium Ferritin Total Bilirubin Alkaline Phosphatase Lactate Dehydrogenase Total Creatine Kinase CK-MB (CK-2) Rel Index Troponin T C-Reactive Protein Total Protein Albumin Prealbumin LDL Cholesterol Direct Arterial Blood Glucose Arterial Blood Ionized Calcium Urine WBC (Auto) 04/07/20 04/08/20 04/08/20 23:22 05:40 11:29 WBC RBC Hgb Hct MCV MCH RDW Plt Count Lymph % (Auto) Lymph # (Auto) [place] # (Auto) Seg Neutrophils % Seg Neuts % (Manual) Lymphocytes % (Manual) Monocytes % (Manual) Basophils % (Manual) Seg Neutrophils # Seg Neutrophils # Man Lymphocytes # (Manual) Monocytes # (Manual) Eosinophils # (Manual) Basophils # (Manual) PT INR D-Dimer ABG pH POC ABG pCO2 POC ABG pO2 ABG pO2 ABG HCO3 ABG O2 Saturation ABG Base Excess ABG Hemoglobin ABG Oxyhemoglobin ABG Potassium ABG Glucose Oxyhemoglobin Carboxyhemoglobin Sodium Potassium Chloride Carbon Dioxide BUN Creatinine Glucose POC Glucose 133 H 125 H 116 H Calcium Ferritin Total Bilirubin Alkaline Phosphatase Lactate Dehydrogenase Total Creatine Kinase CK-MB (CK-2) Rel Index Troponin T C-Reactive Protein Total Protein Albumin Prealbumin LDL Cholesterol Direct Arterial Blood Glucose Arterial Blood Ionized Calcium Urine WBC (Auto) 04/08/20 04/09/20 04/09/20 17:43 05:47 12:22 WBC RBC Hgb Hct MCV MCH RDW Plt Count Lymph % (Auto) Lymph # (Auto) [place] # (Auto) Seg Neutrophils % Seg Neuts % (Manual) Lymphocytes % (Manual) Monocytes % (Manual) Basophils % (Manual) Seg Neutrophils # Seg Neutrophils # Man Lymphocytes # (Manual) Monocytes # (Manual) Eosinophils # (Manual) Basophils # (Manual) PT INR D-Dimer ABG pH POC ABG pCO2 POC ABG pO2 ABG pO2 ABG HCO3 ABG O2 Saturation ABG Base Excess ABG Hemoglobin ABG Oxyhemoglobin ABG Potassium ABG Glucose Oxyhemoglobin Carboxyhemoglobin Sodium Potassium Chloride Carbon Dioxide BUN Creatinine Glucose POC Glucose 123 H 108 H 116 H Calcium Ferritin Total Bilirubin Alkaline Phosphatase Lactate Dehydrogenase Total Creatine Kinase CK-MB (CK-2) Rel Index Troponin T C-Reactive Protein Total Protein Albumin Prealbumin LDL Cholesterol Direct Arterial Blood Glucose Arterial Blood Ionized Calcium Urine WBC (Auto) 04/09/20 04/09/20 04/10/20 17:24 23:52 06:10 WBC RBC Hgb Hct MCV MCH RDW Plt Count Lymph % (Auto) Lymph # (Auto) [place] # (Auto) Seg Neutrophils % Seg Neuts % (Manual) Lymphocytes % (Manual) Monocytes % (Manual) Basophils % (Manual) Seg Neutrophils # Seg Neutrophils # Man Lymphocytes # (Manual) Monocytes # (Manual) Eosinophils # (Manual) Basophils # (Manual) PT INR D-Dimer ABG pH POC ABG pCO2 POC ABG pO2 ABG pO2 ABG HCO3 ABG O2 Saturation ABG Base Excess ABG Hemoglobin ABG Oxyhemoglobin ABG Potassium ABG Glucose Oxyhemoglobin Carboxyhemoglobin Sodium Potassium Chloride Carbon Dioxide BUN Creatinine Glucose POC Glucose 108 H 126 H 122 H Calcium Ferritin Total Bilirubin Alkaline Phosphatase Lactate Dehydrogenase Total Creatine Kinase CK-MB (CK-2) Rel Index Troponin T C-Reactive Protein Total Protein Albumin Prealbumin LDL Cholesterol Direct Arterial Blood Glucose Arterial Blood Ionized Calcium Urine WBC (Auto) 04/10/20 04/10/20 04/10/20 11:27 18:11 23:24 WBC RBC Hgb Hct MCV MCH RDW Plt Count Lymph % (Auto) Lymph # (Auto) [place] # (Auto) Seg Neutrophils % Seg Neuts % (Manual) Lymphocytes % (Manual) Monocytes % (Manual) Basophils % (Manual) Seg Neutrophils # Seg Neutrophils # Man Lymphocytes # (Manual) Monocytes # (Manual) Eosinophils # (Manual) Basophils # (Manual) PT INR D-Dimer ABG pH POC ABG pCO2 POC ABG pO2 ABG pO2 ABG HCO3 ABG O2 Saturation ABG Base Excess ABG Hemoglobin ABG Oxyhemoglobin ABG Potassium ABG Glucose Oxyhemoglobin Carboxyhemoglobin Sodium Potassium Chloride Carbon Dioxide BUN Creatinine Glucose POC Glucose 129 H 125 H 107 H Calcium Ferritin Total Bilirubin Alkaline Phosphatase Lactate Dehydrogenase Total Creatine Kinase CK-MB (CK-2) Rel Index Troponin T C-Reactive Protein Total Protein Albumin Prealbumin LDL Cholesterol Direct Arterial Blood Glucose Arterial Blood Ionized Calcium Urine WBC (Auto) 04/11/20 04/11/20 04/11/20 05:28 11:46 23:49 WBC RBC Hgb Hct MCV MCH RDW Plt Count Lymph % (Auto) Lymph # (Auto) [place] # (Auto) Seg Neutrophils % Seg Neuts % (Manual) Lymphocytes % (Manual) Monocytes % (Manual) Basophils % (Manual) Seg Neutrophils # Seg Neutrophils # Man Lymphocytes # (Manual) Monocytes # (Manual) Eosinophils # (Manual) Basophils # (Manual) PT INR D-Dimer ABG pH POC ABG pCO2 POC ABG pO2 ABG pO2 ABG HCO3 ABG O2 Saturation ABG Base Excess ABG Hemoglobin ABG Oxyhemoglobin ABG Potassium ABG Glucose Oxyhemoglobin Carboxyhemoglobin Sodium Potassium Chloride Carbon Dioxide BUN Creatinine Glucose POC Glucose 122 H 122 H 116 H Calcium Ferritin Total Bilirubin Alkaline Phosphatase Lactate Dehydrogenase Total Creatine Kinase CK-MB (CK-2) Rel Index Troponin T C-Reactive Protein Total Protein Albumin Prealbumin LDL Cholesterol Direct Arterial Blood Glucose Arterial Blood Ionized Calcium Urine WBC (Auto) 04/12/20 04/12/20 04/12/20 09:07 09:07 11:39 WBC 13.1 H RBC 3.59 L Hgb 9.5 L Hct 29.8 L MCV 83 L MCH 26 L RDW 16.6 H Plt Count 591 H Lymph % (Auto) Lymph # (Auto) [place] # (Auto) Seg Neutrophils % Seg Neuts % (Manual) 86.0 H Lymphocytes % (Manual) 7.0 L Monocytes % (Manual) Basophils % (Manual) Seg Neutrophils # Seg Neutrophils # Man 11.3 H Lymphocytes # (Manual) 0.9 L Monocytes # (Manual) Eosinophils # (Manual) Basophils # (Manual) PT INR D-Dimer ABG pH POC ABG pCO2 POC ABG pO2 ABG pO2 ABG HCO3 ABG O2 Saturation ABG Base Excess ABG Hemoglobin ABG Oxyhemoglobin ABG Potassium ABG Glucose Oxyhemoglobin Carboxyhemoglobin Sodium Potassium Chloride Carbon Dioxide 36 H BUN Creatinine < 0.2 L Glucose 132 H POC Glucose 136 H Calcium Ferritin Total Bilirubin Alkaline Phosphatase Lactate Dehydrogenase Total Creatine Kinase CK-MB (CK-2) Rel Index Troponin T C-Reactive Protein Total Protein Albumin 2.7 L Prealbumin LDL Cholesterol Direct Arterial Blood Glucose Arterial Blood Ionized Calcium Urine WBC (Auto) 04/12/20 04/12/20 04/13/20 18:13 23:07 05:45 WBC RBC Hgb Hct MCV MCH RDW Plt Count Lymph % (Auto) Lymph # (Auto) [place] # (Auto) Seg Neutrophils % Seg Neuts % (Manual) Lymphocytes % (Manual) Monocytes % (Manual) Basophils % (Manual) Seg Neutrophils # Seg Neutrophils # Man Lymphocytes # (Manual) Monocytes # (Manual) Eosinophils # (Manual) Basophils # (Manual) PT INR D-Dimer ABG pH POC ABG pCO2 POC ABG pO2 ABG pO2 ABG HCO3 ABG O2 Saturation ABG Base Excess ABG Hemoglobin ABG Oxyhemoglobin ABG Potassium ABG Glucose Oxyhemoglobin Carboxyhemoglobin Sodium Potassium Chloride Carbon Dioxide BUN Creatinine Glucose POC Glucose 107 H 106 H 125 H Calcium Ferritin Total Bilirubin Alkaline Phosphatase Lactate Dehydrogenase Total Creatine Kinase CK-MB (CK-2) Rel Index Troponin T C-Reactive Protein Total Protein Albumin Prealbumin LDL Cholesterol Direct Arterial Blood Glucose Arterial Blood Ionized Calcium Urine WBC (Auto) 04/13/20 04/13/20 04/13/20 11:18 17:56 23:33 WBC RBC Hgb Hct MCV MCH RDW Plt Count Lymph % (Auto) Lymph # (Auto) [place] # (Auto) Seg Neutrophils % Seg Neuts % (Manual) Lymphocytes % (Manual) Monocytes % (Manual) Basophils % (Manual) Seg Neutrophils # Seg Neutrophils # Man Lymphocytes # (Manual) Monocytes # (Manual) Eosinophils # (Manual) Basophils # (Manual) PT INR D-Dimer ABG pH POC ABG pCO2 POC ABG pO2 ABG pO2 ABG HCO3 ABG O2 Saturation ABG Base Excess ABG Hemoglobin ABG Oxyhemoglobin ABG Potassium ABG Glucose Oxyhemoglobin Carboxyhemoglobin Sodium Potassium Chloride Carbon Dioxide BUN Creatinine Glucose POC Glucose 133 H 110 H 114 H Calcium Ferritin Total Bilirubin Alkaline Phosphatase Lactate Dehydrogenase Total Creatine Kinase CK-MB (CK-2) Rel Index Troponin T C-Reactive Protein Total Protein Albumin Prealbumin LDL Cholesterol Direct Arterial Blood Glucose Arterial Blood Ionized Calcium Urine WBC (Auto) 04/14/20 04/14/20 04/14/20 05:58 11:45 17:48 WBC RBC Hgb Hct MCV MCH RDW Plt Count Lymph % (Auto) Lymph # (Auto) [place] # (Auto) Seg Neutrophils % Seg Neuts % (Manual) Lymphocytes % (Manual) Monocytes % (Manual) Basophils % (Manual) Seg Neutrophils # Seg Neutrophils # Man Lymphocytes # (Manual) Monocytes # (Manual) Eosinophils # (Manual) Basophils # (Manual) PT INR D-Dimer ABG pH POC ABG pCO2 POC ABG pO2 ABG pO2 ABG HCO3 ABG O2 Saturation ABG Base Excess ABG Hemoglobin ABG Oxyhemoglobin ABG Potassium ABG Glucose Oxyhemoglobin Carboxyhemoglobin Sodium Potassium Chloride Carbon Dioxide BUN Creatinine Glucose POC Glucose 115 H 122 H 124 H Calcium Ferritin Total Bilirubin Alkaline Phosphatase Lactate Dehydrogenase Total Creatine Kinase CK-MB (CK-2) Rel Index Troponin T C-Reactive Protein Total Protein Albumin Prealbumin LDL Cholesterol Direct Arterial Blood Glucose Arterial Blood Ionized Calcium Urine WBC (Auto) 04/15/20 04/15/20 04/15/20 00:11 05:38 11:31 WBC RBC Hgb Hct MCV MCH RDW Plt Count Lymph % (Auto) Lymph # (Auto) [place] # (Auto) Seg Neutrophils % Seg Neuts % (Manual) Lymphocytes % (Manual) Monocytes % (Manual) Basophils % (Manual) Seg Neutrophils # Seg Neutrophils # Man Lymphocytes # (Manual) Monocytes # (Manual) Eosinophils # (Manual) Basophils # (Manual) PT INR D-Dimer ABG pH POC ABG pCO2 POC ABG pO2 ABG pO2 ABG HCO3 ABG O2 Saturation ABG Base Excess ABG Hemoglobin ABG Oxyhemoglobin ABG Potassium ABG Glucose Oxyhemoglobin Carboxyhemoglobin Sodium Potassium Chloride Carbon Dioxide BUN Creatinine Glucose POC Glucose 120 H 109 H 123 H Calcium Ferritin Total Bilirubin Alkaline Phosphatase Lactate Dehydrogenase Total Creatine Kinase CK-MB (CK-2) Rel Index Troponin T C-Reactive Protein Total Protein Albumin Prealbumin LDL Cholesterol Direct Arterial Blood Glucose Arterial Blood Ionized Calcium Urine WBC (Auto) 04/15/20 04/16/20 17:35 06:00 WBC RBC Hgb Hct MCV MCH RDW Plt Count Lymph % (Auto) Lymph # (Auto) [place] # (Auto) Seg Neutrophils % Seg Neuts % (Manual) Lymphocytes % (Manual) Monocytes % (Manual) Basophils % (Manual) Seg Neutrophils # Seg Neutrophils # Man Lymphocytes # (Manual) Monocytes # (Manual) Eosinophils # (Manual) Basophils # (Manual) PT INR D-Dimer ABG pH POC ABG pCO2 POC ABG pO2 ABG pO2 ABG HCO3 ABG O2 Saturation ABG Base Excess ABG Hemoglobin ABG Oxyhemoglobin ABG Potassium ABG Glucose Oxyhemoglobin Carboxyhemoglobin Sodium Potassium Chloride Carbon Dioxide BUN Creatinine Glucose POC Glucose 111 H 142 H Calcium Ferritin Total Bilirubin Alkaline Phosphatase Lactate Dehydrogenase Total Creatine Kinase CK-MB (CK-2) Rel Index Troponin T C-Reactive Protein Total Protein Albumin Prealbumin LDL Cholesterol Direct Arterial Blood Glucose Arterial Blood Ionized Calcium Urine WBC (Auto) Allied health notes reviewed: RT
[2020-04-16] MEDS: METOPROLOL TARTRATE 25 MG TAB PO SCH ×2 (10:51→22:18)
[2020-04-16] MEDS: MAGIC MOUTHWASH 30ML PO SCH ×3 (11:14→22:17)
[2020-04-16] MEDS: SODIUM HYPOCHLORITE, DAKIN'S 1/2 STRENGTH (0.25%) 473 ML TOPICAL SOLN TP SCH ×2 (12:00→23:20)
--- NOTE | 2020-04-16 12:18 | Progress Note ---
Subjective Date of service: 04/16/20 Principal diagnosis: Ac on Ch Hypercapnic & hypoxemic Resp Failure; Severe Sepsis; Jamar PNA; ALS Interval history: Assessment and plan: --Oral thrush; Nystatin/Magic mouthwash swish and spit --Acute hypoxic hypercapnic respiratory failure; Tracheostomy on ventilatory support Wean as tolerated, continue supportive care Pulmonary following --Constipation; Patient already received Dulcolax suppository and Colace Received milk of magnesia, with relief --History of ALS - Stable --Elevated D-dimers; imaging studies negative for PE and DVT --Bilateral pneumonia; probably community-acquired Completed the treatment, continue supportive care --Sepsis secondary to pneumonia; completed the treatment resolved --Elevated troponin non-ST elevation OK type II Continue current management --Febrile illness; resolved ,secondary to pneumonia Complete antibiotics , resolved --DVT prophylaxis; Lovenox. We will closely monitor the patient and adjust management as needed Plan of care reviewed with the patient's nurse 03/28. Had temp 100.7F. He has been off antibiotics. Will send blood culture, ua, urine culture and chest xray. Had chest pain overnight and trop was elevated as well. Cardiology to evaluate 03/29. Has back pain due to position. He mentions his chest pain is positional. Has no other complaints. Still on mechanical ventilation 03/30. No chest pain today. Labs reviewed. Discussed chest pain with cardiology and team advised no further work up at this time. Can follow up with cardiology in the office after hospitalization 03/31. Lidocaine patch for lower back pain. 04/01. Discharge planning underway. CM notes reviewed. Discussed with daughter 04/02 - . CM trying to arrange discharge. Continue PSV trials. Discussed with patients significant other 04/04/2020; CM is working for discharge arrangement. Continue PSV trials. 04/05/2020; patient was seen and evaluated this morning and no change from baseline. Continue with PSV trials. Follow with jockey valet for discharge planning. 04/06/2020;patient was seen and evaluated this morning and no change from baseline. Continue with PSV trials. Follow with jockey valet for discharge planning. 04/07/2020; patient was seen and evaluated this morning and no change from baseline. Continue with PSV trials. Follow with jockey valet for discharge planning. 04/08/2020; patient is vent dependent. Discharge is per jockey valet. 04/09/2020 patient is vent dependent, possible LTAC placement 04/10/2020; tracheostomy on vent, vent dependent pending LTAC placement 04/11/2020; clinically no change, tracheostomy on ventilatory support, wean as tolerated, awaiting placement 04/12/2020; remains on ventilatory support, unable to wean, patient wants to see a speech therapist for sound box However we cannot try that as long as he is on ventilatory support, once he is weaned off vent We will consult speech therapist, plan of care reviewed with the patient and his nurse 04/14/2020; clinically no change, on ventilatory support, complains of constipation, milk of magnesia Closely monitor the patient and adjust the management as needed 04/15/2020; patient has some oral thrush on the tongue, will give Magic mouthwash/nystatin swish and spit Wean off vent as tolerated 04/16 patient is alert and oriented, unable to comprehend what he is trying to tell but appears to complain of some pain, no acute events overnight, all interdisciplinary notes reviewed. Waiting for LTAC versus custodial facility placement Brief history: 59-year-old male patient with significant past medical history of ALS, presented to ED with worsening shortness of breath since the morning [employer]. Patient was on a trilogy machine for breathing 18/11. EMS arrived, patient had O2 sats in the 80s. EMS attempted to place patient on their CPAP machine, however patient did not tolerate. Patient was admitted to the ICU with diagnosis of acute hypoxic respiratory failure and placed on BiPAP. Patient initially tolerated but later deteriorated with respiratory status. CTA chest showed no PE but significant for bilateral pneumonia. Doppler ultrasound also negative for DVT. COVID-19 test ordered. Due to persistent hypoxia, patient was intubated on 02/26/2020 at 1500. Patient now on mechanical ventilation in the ICU s/p trach placement and now unable to wean off from the mechanical ventilation. Patient now status post PEG placement for tube feeding. Pending long-term placement -LTAC versus SNF Objective - Constitutional Vitals: Vital Signs - 12hr 04/16/20 04/16/20 04/16/20 00:25 00:37 00:50 Temperature Pulse Rate 113 H 116 H Respiratory 20 Rate Respiratory Rate [Back] Respiratory Rate [Throat] Blood Pressure 115/78 O2 Sat by Pulse 92 Oximetry O2 Sat by Pulse Oximetry [ Assessment] 04/16/20 04/16/20 04/16/20 01:00 01:20 02:00 Temperature Pulse Rate 118 H 109 H Respiratory 23 20 26 H Rate Respiratory Rate [Back] Respiratory Rate [Throat] Blood Pressure 111/80 116/79 O2 Sat by Pulse 90 93 Oximetry O2 Sat by Pulse Oximetry [ Assessment] 04/16/20 04/16/20 04/16/20 03:00 03:24 03:39 Temperature 98.3 F Pulse Rate 111 H 112 H Respiratory 14 Rate Respiratory Rate [Back] Respiratory Rate [Throat] Blood Pressure 116/79 O2 Sat by Pulse 94 Oximetry O2 Sat by Pulse Oximetry [ Assessment] 04/16/20 04/16/20 04/16/20 04:00 04:53 04:55 Temperature Pulse Rate 117 H 105 H Respiratory 29 H Rate Respiratory Rate [Back] Respiratory Rate [Throat] Blood Pressure 117/79 O2 Sat by Pulse 95 Oximetry O2 Sat by Pulse 97 Oximetry [ Assessment] 04/16/20 04/16/20 04/16/20 05:00 06:00 06:20 Temperature Pulse Rate 115 H 117 H Respiratory 18 19 Rate Respiratory 20 Rate [Back] Respiratory 20 Rate [Throat] Blood Pressure 114/80 109/76 O2 Sat by Pulse 95 94 Oximetry O2 Sat by Pulse Oximetry [ Assessment] 04/16/20 04/16/20 04/16/20 06:22 06:52 07:00 Temperature Pulse Rate 109 H Respiratory 20 20 23 Rate Respiratory Rate [Back] Respiratory Rate [Throat] Blood Pressure 111/79 O2 Sat by Pulse 94 Oximetry O2 Sat by Pulse Oximetry [ Assessment] 04/16/20 04/16/20 04/16/20 08:00 09:00 09:11 Temperature 97.9 F Pulse Rate 115 H 109 H 112 H Respiratory 17 21 Rate Respiratory Rate [Back] Respiratory Rate [Throat] Blood Pressure 119/80 110/76 110/76 O2 Sat by Pulse 98 96 Oximetry O2 Sat by Pulse Oximetry [ Assessment] 04/16/20 10:00 Temperature Pulse Rate 111 H Respiratory 35 H Rate Respiratory Rate [Back] Respiratory Rate [Throat] Blood Pressure 111/78 O2 Sat by Pulse 96 Oximetry O2 Sat by Pulse Oximetry [ Assessment] General appearance: Present: no acute distress, cachectic - EENT Eyes: PERRL, EOM intact ENT: hearing intact, thrush - Neck Neck: supple - Respiratory Respiratory: bilateral: CTA, diminished - Cardiovascular Rhythm: regular Heart Sounds: Present: S1 & S2 Extremity abnormal: edema (Trace bilateral pedal edema) - Gastrointestinal General gastrointestinal: Present: soft, non-tender, other (Has a PEG tube) Rectal Exam: deferred - Genitourinary Male genitourinary: deferred - Integumentary Integumentary: clear - Musculoskeletal Musculoskeletal: generalized weakness - Neurologic Neurologic: other (Quadriparesis) - Labs CBC & Chem 7: 04/12/20 09:07 04/12/20 09:07 Labs: Abnormal lab results 04/15/20 04/16/20 04/16/20 Range/Units 17:35 06:00 11:29 POC Glucose 111 H 142 H 108 H (70-105) mg/dL HEART Score - HEART Score Troponin: Troponin T 0.090 ng/mL (0.00-0.029) H 03/28/20 17:17
[2020-04-16] MEDS: ZOLPIDEM 5 MG TAB PO PRN (22:17)
[2020-04-16] MEDS: GLYCOPYRROLATE 1 MG TAB PO SCH (22:17)
[2020-04-16] MEDS: SENNOSIDES 8.6 MG TAB PO SCH (22:18)
[2020-04-16] MEDS: ENOXAPARIN 40 MG/0.4 ML INJ SUB-Q SCH (22:19)
[2020-04-17 08:22] LABS: Hematocrit 31.5 % (35.5-45.6); Hemoglobin 10.1 gm/dl (11.8-15.2); Mean Corpuscular HGB Conc 32 % (32-34); Mean Corpuscular Volume 84 fl (84-94); Platelet Count 643 K/mm3 (140-440); Red Blood Count 3.76 M/mm3 (3.65-5.03); Red Cell Distribution Width 17.2 % (13.2-15.2)
[2020-04-17 08:34] LABS: Blood Urea Nitrogen 16 mg/dL (9-20); Hemolysis Index 0
[2020-04-17 08:39] LABS: BUN/Creatinine Ratio 80
[2020-04-17] MEDS: METOPROLOL TARTRATE 25 MG TAB PO SCH ×2 (09:14→21:58)
[2020-04-17] MEDS: LANSOPRAZOLE 30 MG SOLUTAB FEEDTUBE SCH (09:15)
[2020-04-17] MEDS: DOCUSATE SODIUM 100 MG/10 ML ORAL LIQD FEEDTUBE SCH ×2 (09:15→21:54)
[2020-04-17] MEDS: SCOPOLAMINE TRANSDERMAL PATCH 72 HR TD SCH (09:16)
[2020-04-17] MEDS: BACLOFEN 10 MG TAB PO SCH ×2 (09:16→21:56)
[2020-04-17] MEDS: LIDOCAINE 5% 1 EACH PATCH TD SCH (09:16)
[2020-04-17] MEDS: TAMSULOSIN 0.4 MG CAP PO SCH (09:19)
[2020-04-17] MEDS: SODIUM HYPOCHLORITE, DAKIN'S 1/2 STRENGTH (0.25%) 473 ML TOPICAL SOLN TP SCH ×2 (09:20→21:55)
[2020-04-17] MEDS: PREGABALIN 75 MG CAP PO SCH ×2 (09:21→21:57)
[2020-04-17] MEDS: MAGIC MOUTHWASH 30ML PO SCH ×3 (09:29→20:33)
[2020-04-17] MEDS: MORPHINE 2 MG/1 ML INJ IV PRN ×3 (09:37→22:54)
[2020-04-17] MEDS: ALPRAZolam 0.5 MG TAB PO PRN ×2 (09:37→18:39)
--- NOTE | 2020-04-17 10:17 | Progress Note ---
Assessment and Plan Assessment and plan: --Acute hypoxic hypercapnic respiratory failure; S/p tracheostomy on ventilatory support etiology secondary to sepsis, ALS, multifocal pneumonia (Covid negative). Pulmonary following --ALS --Oral thrush Nystatin/Magic mouthwash swish and spit --Constipation; Patient already received Dulcolax suppository and Colace Received milk of magnesia, with relief --History of ALS - Stable --Elevated D-dimers; imaging studies negative for PE and DVT --Bilateral pneumonia; probably community-acquired Completed the treatment, continue supportive care --Sepsis secondary to pneumonia; completed the treatment resolved --Elevated troponin non-ST elevation MA type II Continue current management --Febrile illness; resolved ,secondary to pneumonia Complete antibiotics , resolved --DVT prophylaxis; Lovenox. 02/25/2020. CTA of the chest reveals no PE but does illustrate the bilateral pneumonia. Doppler ultrasound also negative for DVT. Blood cultures are pending. Await COVID-19 testing. Patient currently requiring BiPAP IPAP 24/EPAP 6 with FiO2 of 25%. Continue O2 and BiPAP as clinically indicated. ID and pulmonary consulted. 02/26/2020. Blood cultures are negative x48 hours and Covid testing negative as well. Continue antibiotics per ID recommendations for community-acquired bilate ral pneumonia. Cardiology consultation for elevated troponin. Check echocardiogram. 02/27/2020. Events of yesterday noted with asystole following V. fib arrest. Patient currently on AC mode rate 20, tidal volume 400, FiO2 50% and a PEEP of 6. Follow-up echocardiogram for elevated troponin. Cardiology suspects NSTEMI Type 2 in the setting of acute resp failure. Chest CTA and BLE Dopplers neg. we will discontinue Decadron given the Covid PCR is negative. 02/28/2020. I spoke with the sister Felisa Eli who is the power of casualty insurance claim adjuster regarding advanced directives and she instructed me that she would like to continue with aggressive care at this time. I informed her of the guarded prognosis and high mortality/morbidity and she voiced understanding. Patient currently with AC mode ventilation rate 18, tidal volume 400, FiO2 40% and a PEEP of 6. Continue antibiotics for pneumonia. ID previously consulted. Also consult neurology with regards to ALS. 02/29/2020; patient is intubated and on CPAP patient is alert and oriented. Patient has ALS. Dr. Álvarez spoke with his sister and she wants aggressive care. Continue antibiotics for pneumonia. Neurology consulted for ALS. Progno sis poor 03/01/2020; patient is intubated and on CPAP, patient is alert and oriented. I spoke with his 2 sisters about the management plan. 03/02/2020; patient is intubated and on CPAP. Patient was alert and oriented. I spoke with Dr. mohr and he thinks patient may need mechanical ventilat ion, likely his disease progressed. Dr. Flowers did debridement this morning. 03/03/2020; patient is intubated and on CPAP, patient was on trilogy and BiPAP at home. Patient has ALS. on spontaneous breathing trial. Patient is alert and oriented but quadriplegic. Patient has severe bilateral pneumonia and is on cefepime and Vanco, ID is following. Patient has sacral decubitus ulcer and debridement was done by Dr. Flowers and there is no osteomyelitis. 03/05. Patient still on broad-spectrum antibiotics. Status post sacral decubitus ulcer debridements-no osteomyelitis. Patient is on AC 25/400/30% PEEP 5. No blood gas results today. 03/06. Plan for tracheostomy by surgery. Still remains intubated. Labs reviewed-sodium 150. Started on free water 200 every 8hr. trend sodium. 03/07: s/p trach placement today, patient placed back on mechanical ventilation with trach. Plan to resume tube feeding with NG tube. Continue to monitor vitals, monitor BMP. 03/08: Patient noted to have distended abdomen with low urinary output. Obtain bladder scan rule out urine retention, UA and urine culture, continue to follow clinically. 03/09: Patient noted to have low blood pressure with SBP as low as 70s. Ordered for 500 mils normal saline bolus. CT abdomen showed bladder outlet obstruction, urology consulted. 03/10: placed on drake by urology o/n, improved urine outpt. cont to monitor BMP. resuded TF - cont free water with TF. wean off from vent as tolerated. 03/11: Vitals stable. cont TF, wean off from vent as tolerated. start on 1/2 NS for hypernatremia - follow BMP 03/12: wean off vent as tolerated, plan for speech eval, cont Tf for now, cont iv fluid 03/13: unable to wean off from vent, unable to do speech therapy eval. will need PEG tube, cont supportive care for now, cont NG tube feeding 03/14: consulted GI for PEg placemnet, cont supportive care. remains on vent at night 03/15: Discussed with GI, plan for PEG tube placement possibly tomorrow. Continue supportive care and wean off from vent as tolerated. Hold Lovenox dose tonight. 03/16: family didnot consent for PEG placement yesterday. I spoke with the daughter today and she is now agreeable for PEG tube. I explained the necessity of the procedure with RN to the patient also and he nodded started on tube feeding, for the procedure. will cont supportive care. planned for PEG tube placement tomorrow. 03/17: s/p PEG placement today, patient tolerated well, cont supportive care 03/18: Started on tube feeding with new PEG tube, continue to wean off vent as tolerated 03/19: cont to monitor with supportive care, wean off vent as tolerated 03/20: Continue to wean off vent as tolerated -but failing weaning trial. Still requiring vent support at night. Currently on PEG tube for tube feed. 03/21. Pt with PSV trials with FiO@ 30%, PEEP 6, PS 10. Currently on PEG tube for tube feed. 03/22/2020. Continue PSV trials per pulmonary. Continue bronchodilators. Patient tolerating tube feedings. Continue Robinul for secretion control. 03/23/2020. Continue PSV trials per pulmonary. Continue bronchodilators. Continue Scopolamine and Robinul for secretion control. Trach care/airway management. Mobility protocols for pressure ulcer prophylaxis. LTAC evaluation per case management 03/24/2020. Continue PSV trials with current settings pressure support 10, PEEP 6 and FiO2 30%. Continue bronchodilators/nebulizer. Continue Scopolamine and Robinul for secretion control. Trach care/airway management. Mobility protocols for pressure ulcer prophylaxis. LTAC evaluation per case management 03/25/2020. Pulmonary to proceed with T-piece trials today. Continue bronchodi lators/nebulizer. Continue Scopolamine and Robinul for secretion control. Trach care/airway management. Mobility protocols for pressure ulcer prophylaxis. 03/26/2020. Patient currently with PSV 10/6 at FiO2 of 30%. Continue weaning and T-piece trials per protocol. Continue bronchodilators/nebulizer. Continue Scopolamine and Robinul for secretion control. Trach care/airway management. Mobility protocols for pressure ulcer prophylaxis. Continue tube feeding with aspiration precautions. 03/27/2020. Patient currently with PSV 01/31 at FiO2 of 30%. Continue weaning and T-piece trials per protocol. Continue bronchodilators/nebulizer. Continue Scopolamine and Robinul for secretion control. Trach care/airway management. Mobility protocols for pressure ulcer prophylaxis. Continue tube feeding with aspiration precautions. 03/28. Had temp 100.7F. He has been off antibiotics. Will send blood culture, ua, urine culture and chest xray. Had chest pain overnight and trop was elevated as well. Cardiology to evaluate 03/29. Has back pain due to position. He mentions his chest pain is positional. Has no other complaints. Still on mechanical ventilation 03/30. No chest pain today. Labs reviewed. Discussed chest pain with cardiology and team advised no further work up at this time. Can follow up with cardiology in the office after hospitalization 03/31. Lidocaine patch for lower back pain. 04/01. Discharge planning underway. CM notes reviewed. Discussed with daughter 04/02 - . CM trying to arrange discharge. Continue PSV trials. Discussed with patients significant other 04/04/2020; CM is working for discharge arrangement. Continue PSV trials. 04/05/2020; patient was seen and evaluated this morning and no change from baseline. Continue with PSV trials. Follow with national sales director for discharge planning. 04/06/2020;patient was seen and evaluated this morning and no change from baseline. Continue with PSV trials. Follow with national sales director for discharge planning. 04/07/2020; patient was seen and evaluated this morning and no change from baseline. Continue with PSV trials. Follow with national sales director for discharge planning. 04/08/2020; patient is vent dependent. Discharge is per national sales director. 04/09/2020 patient is vent dependent, possible LTAC placement 04/10/2020; tracheostomy on vent, vent dependent pending LTAC placement 04/11/2020; clinically no change, tracheostomy on ventilatory support, wean as tolerated, awaiting placement 04/12/2020; remains on ventilatory support, unable to wean, patient wants to see a speech therapist for sound box However we cannot try that as long as he is on ventilatory support, once he is weaned off vent We will consult speech therapist, plan of care reviewed with the patient and his nurse 04/14/2020; clinically no change, on ventilatory support, complains of constipation, milk of magnesia Closely monitor the patient and adjust the management as needed 04/15/2020; patient has some oral thrush on the tongue, will give Magic mouthwash/nystatin swish and spit Wean off vent as tolerated 04/16 patient is alert and oriented, unable to comprehend what he is trying to tell but appears to complain of some pain, no acute events overnight, all interdisciplinary notes reviewed. Waiting for LTAC versus fpc f acility placement 04/17/2020. Continue supportive care with mechanical ventilation. Patient currently on AC mode rate 10, tidal volume 400 FiO2 30% with a PEEP of 6. Discharge planning per case management. The high probability of a clinically significant, sudden or life threatening deterioration of the [cardiac and respiratory] system(s) required my full and direct attention, intervention and personal management. The aggregate critical care time was [32] minutes. This time is in addition to time spent performing reported procedures but includes the following: [x] Data Review and interpretation [x] Patient assessment and monitoring of vital signs [x] Documentation [x] Medication orders and management History Interval history: 59-year-old male patient with significant past medical history of ALS, presented to ED with worsening shortness of breath since the morning [employer]CRETE PU[employer] OPER[employer]. Patient was on a trilogy machine for breathing 18/11. EMS arrived, patient had O2 sats in the 80s. EMS attempted to place patient on their CPAP machine, however patient did not tolerate. Patient was admitted to the ICU with diagnosis of acute hypoxic respiratory failure and placed on BiPAP. Patient initially tolerated but later deteriorated with respiratory status. CTA chest showed no PE but significant for bilateral pneumonia. Doppler ultrasound also negative for DVT. COVID-19 test ordered. Due to persistent hypoxia, patient was intubated on 02/26/2020 at 1500. Patient now on mechanical ventilation in the ICU s/p trach placement and now unable to wean off from the mechanical ventilation. Patient now status post PEG placement for tube feeding. Pending long-term placement -LTAC versus SNF Hospitalist Physical - Constitutional Vitals: Temp Pulse Resp BP Pulse Ox 98.4 F 115 H 21 105/71 98 04/17/20 08:00 04/17/20 09:14 04/17/20 07:00 04/17/20 09:14 04/17/20 08:37 General appearance: Present: no acute distress, cachectic - EENT Eyes: Present: PERRL, EOM intact ENT: hearing intact, clear oral mucosa, dentition normal - Neck Neck: Present: supple, normal ROM - Respiratory Respiratory effort: normal Respiratory: bilateral: CTA - Cardiovascular Rhythm: regular Heart Sounds: Present: S1 & S2. Absent: gallop, rub - Extremities Extremities: no ischemia, No edema, Full ROM - Abdominal General gastrointestinal: soft, non-tender, non-distended, normal bowel sounds - Integumentary Integumentary: Present: clear, warm, dry - Neurologic Neurologic: CNII-XII intact, moves all extremities HEART Score - HEART Score Troponin: Troponin T 0.090 ng/mL (0.00-0.029) H 03/28/20 17:17 Results - Labs CBC & Chem 7: 04/17/20 06:53 04/17/20 06:53 Labs: Laboratory Last Values WBC 14.2 K/mm3 (4.5-11.0) H 04/17/20 06:53 RBC 3.76 M/mm3 (3.65-5.03) 04/17/20 06:53 Hgb 10.1 gm/dl (11.8-15.2) L 04/17/20 06:53 Hct 31.5 % (35.5-45.6) L 04/17/20 06:53 MCV 84 fl (84-94) 04/17/20 06:53 MCH 27 pg (28-32) L 04/17/20 06:53 MCHC 32 % (32-34) 04/17/20 06:53 RDW 17.2 % (13.2-15.2) H 04/17/20 06:53 Plt Count 643 K/mm3 (140-440) H 04/17/20 06:53 Lymph % (Auto) 6.4 % (13.4-35.0) L 03/30/20 14:47 [place] % (Auto) 7.2 % (0.0-7.3) 03/30/20 14:47 Eos % (Auto) 0.1 % (0.0-4.3) 03/30/20 14:47 Baso % (Auto) 0.2 % (0.0-1.8) 03/30/20 14:47 Lymph # (Auto) 1.3 K/mm3 (1.2-5.4) 03/30/20 14:47 [place] # (Auto) 1.4 K/mm3 (0.0-0.8) H 03/30/20 14:47 Eos # (Auto) 0.0 K/mm3 (0.0-0.4) 03/30/20 14:47 Baso # (Auto) 0.0 K/mm3 (0.0-0.1) 03/30/20 14:47 Add Manual Diff Complete 04/12/20 09:07 Total Counted 100 04/12/20 09:07 Seg Neutrophils % 86.1 % (40.0-70.0) H 03/30/20 14:47 Seg Neuts % (Manual) 86.0 % (40.0-70.0) H 04/12/20 09:07 Band Neutrophils % 0 % 03/28/20 10:28 Lymphocytes % (Manual) 7.0 % (13.4-35.0) L 04/12/20 09:07 Reactive Lymphs % (Man) 0 % 03/28/20 10:28 Monocytes % (Manual) 3.0 % (0.0-7.3) 04/12/20 09:07 Eosinophils % (Manual) 1.0 % (0.0-4.3) 04/12/20 09:07 Basophils % (Manual) 1.0 % (0.0-1.8) 03/28/20 10:28 Metamyelocytes % 3.0 % 04/12/20 09:07 Myelocytes % 0 % 03/28/20 10:28 Promyelocytes % 0 % 03/28/20 10:28 Blast Cells % 0 % 03/28/20 10:28 Nucleated RBC % Not Reportable 04/12/20 09:07 Seg Neutrophils # 17.1 K/mm3 (1.8-7.7) H 03/30/20 14:47 Seg Neutrophils # Man 11.3 K/mm3 (1.8-7.7) H 04/12/20 09:07 Band Neutrophils # 0.0 K/mm3 04/12/20 09:07 Lymphocytes # (Manual) 0.9 K/mm3 (1.2-5.4) L 04/12/20 09:07 Abs React Lymphs (Man) 0.0 K/mm3 04/12/20 09:07 Monocytes # (Manual) 0.4 K/mm3 (0.0-0.8) 04/12/20 09:07 Eosinophils # (Manual) 0.1 K/mm3 (0.0-0.4) 04/12/20 09:07 Basophils # (Manual) 0.0 K/mm3 (0.0-0.1) 04/12/20 09:07 Metamyelocytes # 0.4 K/mm3 04/12/20 09:07 Myelocytes # 0.0 K/mm3 04/12/20 09:07 Promyelocytes # 0.0 K/mm3 04/12/20 09:07 Blast Cells # 0.0 K/mm3 04/12/20 09:07 WBC Morphology Not Reportable 04/12/20 09:07 Hypersegmented Neuts Not Reportable 04/12/20 09:07 Hyposegmented Neuts Not Reportable 04/12/20 09:07 Hypogranular Neuts Not Reportable 04/12/20 09:07 Smudge Cells Not Reportable 04/12/20 09:07 Toxic Granulation Not Reportable 04/12/20 09:07 Toxic Vacuolation Not Reportable 04/12/20 09:07 Dohle Bodies Not Reportable 04/12/20 09:07 Pelger-Huet Anomaly Not Reportable 04/12/20 09:07 Robert Rods Not Reportable 04/12/20 09:07 Platelet Estimate Consistent w auto 04/12/20 09:07 Clumped Platelets Not Reportable 04/12/20 09:07 Plt Clumps, EDTA Not Reportable 04/12/20 09:07 Large Platelets Few 04/12/20 09:07 Giant Platelets Not Reportable 04/12/20 09:07 Platelet Satelliting Not Reportable 04/12/20 09:07 Plt Morphology Comment Not Reportable 04/12/20 09:07 RBC Morphology Not Reportable 04/12/20 09:07 Dimorphic RBCs Not Reportable 04/12/20 09:07 Polychromasia Few 04/12/20 09:07 Hypochromasia Not Reportable 04/12/20 09:07 Poikilocytosis Not Reportable 04/12/20 09:07 Anisocytosis 1+ 04/12/20 09:07 Microcytosis Not Reportable 04/12/20 09:07 Macrocytosis Not Reportable 04/12/20 09:07 Spherocytes Not Reportable 04/12/20 09:07 Pappenheimer Bodies Not Reportable 04/12/20 09:07 Sickle Cells Not Reportable 04/12/20 09:07 Target Cells Not Reportable 04/12/20 09:07 Tear Drop Cells Not Reportable 04/12/20 09:07 Ovalocytes Not Reportable 04/12/20 09:07 Stomatocytes Few 03/17/20 04:40 Helmet Cells Not Reportable 04/12/20 09:07 [place] Bodies Not Reportable 04/12/20 09:07 [place] Rings Not Reportable 04/12/20 09:07 [place] Cells Not Reportable 04/12/20 09:07 Bite Cells Not Reportable 04/12/20 09:07 Crenated Cell Not Reportable 04/12/20 09:07 Elliptocytes Not Reportable 04/12/20 09:07 Acanthocytes (Spur) Not Reportable 04/12/20 09:07 Rouleaux Not Reportable 04/12/20 09:07 Hemoglobin C Crystals Not Reportable 04/12/20 09:07 Schistocytes Not Reportable 04/12/20 09:07 Malaria parasites Not Reportable 04/12/20 09:07 [place] Bodies Not Reportable 04/12/20 09:07 Hem Pathologist Commnt No 04/12/20 09:07 PT 15.6 Sec. (12.2-14.9) H 02/24/20 09:19 INR 1.21 (0.87-1.13) H 02/24/20 09:19 APTT 25.4 Sec. (24.2-36.6) 02/24/20 09:19 D-Dimer 1311.96 ng/mlDDU (0-234) H 02/24/20 09:19 ABG pH 7.371 (7.320-7.450) 03/08/20 12:34 POC ABG pCO2 63.1 mmHg (32.0-48.0) H 03/08/20 12:34 ABG pCO2 60.1 mm Hg 03/06/20 04:34 POC ABG pO2 90.5 mmHg (83-108) 03/08/20 12:34 ABG pO2 88.6 mm Hg (80.0-90.0) 03/06/20 04:34 POC ABG HCO3 35.7 03/08/20 12:34 ABG HCO3 37.9 mmol/L (20.0-26.0) H 03/06/20 04:34 ABG O2 Saturation 97.0 % (95.0-99.0) 03/06/20 04:34 ABG O2 Content 14.3 (0.0-44) 03/06/20 04:34 POC ABG Base Excess 8.7 03/08/20 12:34 ABG Base Excess 11.4 mmol/L (-2.0-3.0) H 03/06/20 04:34 ABG Hemoglobin 10.9 (12.0-17.5) L 03/08/20 12:34 ABG Oxyhemoglobin 95.9 (94-98) 03/08/20 12:34 ABG Carboxyhemoglobin 1.7 % (0.0-5.0) 03/06/20 04:34 ABG Methemoglobin 0.3 (0.0-1.5) 03/08/20 12:34 ABG Sodium 143.6 mmol/L (136.0-145.0) 03/08/20 12:34 ABG Potassium 3.8 mmol/L (3.40-4.50) 03/08/20 12:34 ABG Chloride 102.0 mmol/L (98-107) 03/08/20 12:34 ABG Glucose 176 mg/dL (65-95) H 03/08/20 12:34 Oxyhemoglobin 94.7 % (95.0-99.0) L 03/06/20 04:34 Carboxyhemoglobin 0.7 (0.5-1.5) 03/08/20 12:34 FiO2 30 03/08/20 12:34 Sodium 138 mmol/L (137-145) 04/17/20 06:53 Potassium 4.0 mmol/L (3.6-5.0) 04/17/20 06:53 Chloride 97.7 mmol/L (98-107) L 04/17/20 06:53 Carbon Dioxide 38 mmol/L (22-30) H 04/17/20 06:53 Anion Gap 6 mmol/L 04/17/20 06:53 BUN 16 mg/dL (9-20) 04/17/20 06:53 Creatinine < 0.2 mg/dL (0.8-1.3) L 04/17/20 06:53 Estimated GFR > 60 ml/min 04/17/20 06:53 BUN/Creatinine Ratio 80 % 04/17/20 06:53 Glucose 126 mg/dL (75-100) H 04/17/20 06:53 POC Glucose 131 mg/dL (70-105) H 04/17/20 05:09 Lactic Acid 1.00 mmol/L (0.7-2.0) 02/24/20 12:07 Calcium 9.0 mg/dL (8.4-10.2) 04/17/20 06:53 Phosphorus 3.30 mg/dL (2.5-4.5) 03/29/20 14:35 Magnesium 1.90 mg/dL (1.7-2.3) 04/12/20 09:07 Ferritin 1715.0 ng/mL (30.0-300.0) H 02/24/20 10:01 Total Bilirubin 0.20 mg/dL (0.1-1.2) 04/12/20 09:07 AST 15 units/L (5-40) 04/12/20 09:07 ALT 15 units/L (7-56) 04/12/20 09:07 Alkaline Phosphatase 62 units/L (35-129) 04/12/20 09:07 Lactate Dehydrogenase 303 units/L (91-180) H 02/24/20 09:19 Total Creatine Kinase 47 units/L (55-170) L 03/28/20 17:17 CK-MB (CK-2) 2.2 ng/mL (0.0-4.0) 03/28/20 17:17 CK-MB (CK-2) Rel Index 4.6 (0-4) H 03/28/20 17:17 Troponin T 0.090 ng/mL (0.00-0.029) H 03/28/20 17:17 C-Reactive Protein 4.70 mg/dL (0.00-1.30) H 02/28/20 11:05 NT-Pro-B Natriuret Pep 48.30 pg/mL (0-900) 02/24/20 09:19 Total Protein 6.7 g/dL (6.3-8.2) 04/12/20 09:07 Albumin 2.7 g/dL (3.9-5) L 04/12/20 09:07 Albumin/Globulin Ratio 0.7 % 04/12/20 09:07 Prealbumin 0.090 g/L (0.200-0.400) L 02/28/20 12:54 Triglycerides 34 mg/dL (2-149) 03/22/20 18:00 Cholesterol 104 mg/dL (50-199) 03/22/20 18:00 LDL Cholesterol Direct 54 mg/dL (50-130) 03/22/20 18:00 HDL Cholesterol 40 mg/dL (40-59) 03/22/20 18:00 Cholesterol/HDL Ratio 2.60 % 03/22/20 18:00 Procalcitonin < 0.05 ng/mL (<0.15) 03/28/20 17:12 Arterial Blood Glucose 176 mg/dL (65-95) H 03/08/20 12:34 Arterial Blood Ionized Calcium 4.5 mg/dL (4.6-5.3) L 03/08/20 12:34 Urine Color Yellow (Yellow) 03/28/20 11:36 Urine Turbidity Hazy (Clear) 03/28/20 11:36 Urine pH 5.0 (5.0-7.0) 03/28/20 11:36 Ur Specific Outlook 1.026 (1.003-1.030) 03/28/20 11:36 Urine Protein 100 mg/dl mg/dL (Negative) 03/28/20 11:36 Urine Glucose (UA) Neg mg/dL (Negative) 03/28/20 11:36 Urine Ketones Neg mg/dL (Negative) 03/28/20 11:36 Urine Blood Neg (Negative) 03/28/20 11:36 Urine Nitrite Neg (Negative) 03/28/20 11:36 Urine Bilirubin Neg (Negative) 03/28/20 11:36 Urine Urobilinogen 4.0 mg/dL (<2.0) 03/28/20 11:36 Ur Leukocyte Esterase Mod (Negative) 03/28/20 11:36 Urine WBC (Auto) 39.0 /HPF (0.0-6.0) H 03/28/20 11:36 Urine RBC (Auto) 16.0 /HPF (0.0-6.0) 03/28/20 11:36 U Epithel Cells (Auto) < 1.0 /HPF (0-13.0) 03/08/20 08:57 Urine Bacteria (Auto) 2+ /HPF (Negative) 03/28/20 11:36 Urine Mucus 3+ /HPF 03/28/20 11:36 Urine Yeast (Budding) 2+ /HPF 03/28/20 11:36 Vancomycin Trough 8.0 ug/mL (5.0-20.0) 03/04/20 08:59 Coronavirus (PCR) Negative (Negative) 02/25/20 09:03 - Diagnostic Impressions Diagnostic Impressions: Echocardiogram 02/26/20 10:41 Transthoracic Echocardiogram Indication: Elevated Trop BP: 116/75 HR: 85 Conclusions *Global left ventricular wall motion and contractility are within normal limits. *The estimated ejection fraction is 50-55%. *Abnormal left ventricular diastolic filling is observed, consistent with impaired relaxation. *There is no pericardial effusion. Findings Left Ventricle: The left ventricular chamber size is normal. Global left ventricular wall motion and contractility are within normal limits. Global left ventricular systolic function is normal. The estimated ejection fraction is 50-55%. Abnormal left ventricular diastolic filling is observed, consistent with impaired relaxation. Left Atrium: The left atrial chamber size is normal. Right Ventricle: The right ventricular cavity size is normal. Right Atrium: The right atrial cavity size is normal. Aortic Valve: Mild aortic leaflet calcification is visualized. There is no evidence of aortic regurgitation. Mitral Valve: The mitral valve leaflets are mildly thickened. There is no evidence of mitral regurgitation. Tricuspid Valve: The tricuspid valve leaflets are normal. There is trace tricuspid regurgitation. The right ventricular systolic pressure is calculated at 29 mmHg. Pulmonic Valve: The pulmonic valve is not well visualized. Pericardium: There is no pericardial effusion. Aorta: The aorta appears normal. Venous: The inferior vena cava is dilated. There is less than 50% respiratory change in the inferior vena cava dimension. Measurements Chambers 2D Name Value Normal Range IVSd (2D) 0.97 cm (0.6 - 1.1) LVPWd (2D) 0.93 cm (0.6 - 1.1) LVIDd (2D) 4 cm (3.7 - 5.6) LVIDs (2D) 2.73 cm (2 - 3.8) LV FS (2D) 31.67 % - EF Teichholz (2D) 60.23 % - Ao root diameter (2D) 3.51 cm (2 - 3.7) Volumes/Mass Name Value Normal Range LA ESV SP 4CH (A/L) 8.43 ml - LA ESV SP 2CH (A/L) 18.89 ml - LA ESV BP (A/L) 13.02 ml - LA ESV BP (A/L) index 8.8 ml/m2 - LA ESV SP 4CH (MOD) 7.22 ml - LA ESV SP 2CH (MOD) 18.15 ml - LA ESV BP (MOD) 11.47 ml - LA ESV BP (MOD) index 7.75 ml/m2 - Diastolic/Systolic Function Name Value Normal Range MV E-wave Vmax 0.51 m/sec - MV deceleration time 180.22 msec - MV A-wave Vmax 0.62 m/sec - MV E:A ratio 0.82 ratio - Aortic Valve Name Value Normal Range AV Vmax 1.17 m/sec - AV VTI 19.71 cm - AV peak gradient 5.44 mmHg - AV mean gradient 3.38 mmHg - LVOT diameter 2.26 cm - LVOT Vmax 0.89 m/sec - LVOT VTI 13.72 cm - LVOT peak gradient 3.17 mmHg - LVOT mean gradient 1.67 mmHg - SV LVOT 55.03 ml - SHARAD (continuity Vmax) 3.06 cm2 - SHARAD (continuity VTI) 2.79 cm2 - Tricuspid Valve Name Value Normal Range TR Vmax 2.3 m/sec - TR peak gradient 21 mmHg - RAP 8 mmHg - RVSP 29 mmHg - IVC diameter 2.59 cm (1.2 - 2.3) Pulmonic Valve/Qp:Qs Name Value Normal Range PV acceleration time 68.51 msec - Drake/IV: Voiding Method Indwelling Catheter IV Catheter Type [Right Wrist] INT / Saline Lock IV Catheter Type [Left Hand] Peripheral IV IV Catheter Type [Right Hand] Peripheral IV IV Catheter Type [Left Wrist] Peripheral IV IV Catheter Type [Right Peripheral IV Forearm] IV Catheter Type [Right Triple Lumen Cath Internal Jugular] IV Catheter Type [Left Forearm INT / Saline Lock ] IV Catheter Type [Right Triple Lumen Cath Femoral] IV Catheter Type [Right INT / Saline Lock Antecubital] Active Medications - Current Medications Current Medications: Generic Name Dose Route Start Last Admin Trade Name Freq PRN Reason Stop Dose Admin Acetaminophen 650 mg 02/24/20 15:13 04/14/20 22:25 Tylenol PO 650 mg Q4H PRN Administration Pain, Mild (1-3) Albuterol 2.5 mg 02/24/20 15:13 Proventil IH Q4HRT PRN Shortness Of Breath Alprazolam 0.5 mg 03/30/20 14:19 04/17/20 09:37 Xanax PO 0.5 mg Q8H PRN Administration Anxiety Lipase/Protease/Amylase 1 each 02/26/20 11:[address] 10,500 Unit FEEDTUBE PRN PRN For Clogged Feeding Tube Baclofen 10 mg 04/03/20 12:00 04/17/20 09:16 Lioresal PO 10 mg BID ALISA Administration Bisacodyl 10 mg 03/12/20 18:00 04/12/20 09:26 Bisacodyl 10 Mg Rect Supp VT 10 mg QDAY PRN Administration Bowel Movement Docusate Sodium 100 mg 04/03/20 12:00 04/17/20 09:15 Colace FEEDTUBE 100 mg BID ALISA Administration Enoxaparin Sodium 40 mg 03/20/20 22:00 04/16/20 22:19 Enoxaparin SUB-Q 40 mg QDAY@2200 ALISA Administration Protocol Glycopyrrolate 2 mg 04/16/20 20:00 04/16/20 22:17 Glycopyrrolate 1 Mg Tab PO 2 mg TID ALISA Administration Lansoprazole 30 mg 02/28/20 10:00 04/17/20 09:15 Prevacid Solutab FEEDTUBE 30 mg QDAY ALISA Administration Lidocaine 1 each 03/31/20 10:00 04/17/20 09:16 Lidoderm 5% TD 1 each QDAY ALISA Administration Lidocaine HCl 15 ml 04/15/20 14:00 04/17/20 09:29 Magic Mouthwash 30ml PO 15 ml TID ALISA Administration Magnesium Hydroxide 30 ml 04/12/20 19:20 04/13/20 14:42 Magnesium Hydroxide (Mom) Oral Liqd Udc PO 30 ml Q4H PRN Administration Constipation Metoprolol Tartrate 12.5 mg 02/24/20 22:00 04/17/20 09:14 Metoprolol PO 12.5 mg BID ALISA Administration Morphine Sulfate 2 mg 02/29/20 16:42 04/17/20 09:37 Morphine IV 2 mg Q4H PRN Administration Pain, Moderate (4-6) Pregabalin 150 mg 04/03/20 12:00 04/17/20 09:21 Pregabalin PO 150 mg BID ALISA Administration Scopolamine 1 each 03/03/20 14:00 04/17/20 09:16 Transderm-Scop TD 1 each Q3D ALISA Administration Senna 17.2 mg 04/03/20 22:00 04/16/20 22:18 Senokot PO 17.2 mg QHS ALISA Administration Simple Syrup 15 ml 02/26/20 11:16 Simple Syrup FEEDTUBE PRN PRN Hypoglycemia Simple Syrup 30 ml 02/26/20 11:16 Simple Syrup FEEDTUBE PRN PRN Hypoglycemia Sodium Bicarbonate 325 mg 02/26/20 11:16 Sodium Bicarbonate FEEDTUBE PRN PRN For Clogged Feeding Tube Sodium Hypochlorite 1 applic 03/31/20 13:00 04/17/20 09:20 Dakin's Half Strength TP 1 package BID ALISA Administration Tamsulosin HCl 0.4 mg 03/09/20 18:00 04/17/20 09:19 Tamsulosin 0.4 Mg Cap PO 0.4 mg QDAY ALISA Administration Zolpidem Tartrate 10 mg 03/31/20 20:15 04/16/20 22:17 Ambien PO 10 mg QHS PRN Administration Sleep Nutrition/Malnutrition Assess - Dietary Evaluation Nutrition/Malnutrition Findings: Nutrition Notes Start: 02/26/20 10:40 Freq: Status: Active Protocol: Document 04/11/20 15:00 AB (Rec: 04/11/20 15:04 AB [id number]) Co-Sign 04/11/20 15:00 LM Nutrition Notes Initial or Follow up Reassessment Current Diagnosis Decubitus(Pressure Ulcer), Sepsis,Respiratory Failure Other Pertinent Diagnosis COVID-19 (-), ALS, pneumonia, Hip/buttock PU Current Diet Vital AF 1.2 at 75ml/hr (goal rate) Labs/Tests Reviewed Pertinent Medications Reviewed Height 6 ft Weight 63 kg [place] Body Weight (kg) 80.90 BMI 18.8 Weight Status Appropriate Subjective/Other Information F/U for TF tolerance. Per RN, pt is tolerating TF at goal rate. Per chart, pt had BM . Percent of energy/protein needs met: 100%/100% Burn Absent Trauma Absent GI Symptoms None Skin Integrity/Comment Pressure Ulcer Stage 2 Current % PO Negligible Minimum of two criteria Yes Body Fat Depletion Mild depletion (non-severe) Muscle Mass Mild Depletion (non-severe) Reduced Quality Assurance Monitor Chassis Strength Measurably Reduced (severe) #3 Nutrition Diagnosis Malnutrition Diagnosis Progress(for reassessment Continues documentation) #2 Nutrition Diagnosis Inadequate oral intake Diagnosis Progress(for reassessment Continues documentation) #1 Nutrition Diagnosis Increased nutrient needs ( specify in comment below) Diagnosis Progress(for reassessment Continues documentation) Is patient on ventilator? Yes Is Patient Ambulatory and/or Out of Bed No REE-([facility]-confined to bed) 1784.508 Kcal/Kg value to use for calculation 37 Approximate Energy Requirements Using 2331 kcal/Kg Calculation Used for Recommendations Kcal/kg Additional Notes Protein needs: 88-147 g (1.2-2 g/ kg ABW) Fluid: 1ml/kcal Nutrition Intervention Change Diet Order: Continue TF Nutrition Support: Vital AF 1.2 at 75ml/hr. Flush 200ml q4h For hyponatremia, flush 150 mL q4h Kcal 2,160 Protein (gm) 135 Fluid (mL) 1,460 Add Supplement/Snack (indicate name/kcal Will BID /protein ) Provides kCal: 190 Provides Protein (gm) 5 Goal #1 Meet at least 80% of energy and protein needs via TF Goal #2 Wound healing Anticipated Discharge Needs: Unable to determine at this time Follow-Up By: 04/18/20 Additional Comments F/U for TF tolerance
[2020-04-17] MEDS: GLYCOPYRROLATE 1 MG TAB PO SCH ×3 (10:21→20:34)
--- NOTE | 2020-04-17 14:09 | Progress Note ---
Assessment and Plan Patient awake. Resting on assist control mechanical ventilation, rate 10, Tidal volume 400, FIO2 30%, PEEP 6 and O2 saturation running 99%. Continue spontaneous breathing trials as tolerated.Patient running low grade fever and has leukocytosis. Chest xray done 04/15/20 reported mild basilar airspace opacities which likely represent atelectasis but could represent an evolving pneumonia. If patient continuosly running fever, recommend to place hin on antibiotics like zosyn. I spent critical care time of 35 minutes, review the chart, examining the patient,Review chest xray, labs, talking to the nursing staff and respiratory therapist and work out plan of tratment in this critically ill patient. - Patient Problems (1) Acute on chronic respiratory failure with hypoxia and hypercapnia Current Visit: Yes Status: Acute Plan to address problem: Patient is on assist control mechanical ventilation, rate 10, tidal volume 400, FIO2 30%, PEEP 6. Albuterol inhaler 2 puffs po qid. Continue S/C Lovenox. Continue prevacid. Recommend to continue spontaneous breathing trials. (2) Bleeding from wound Current Visit: Yes Status: Acute Plan to address problem: Management primary care , surgery and wound care. (3) Elevated d-dimer Current Visit: Yes Status: Acute Plan to address problem: Patients venous doppler studies of legs, CTA chest reported Negative for VTE. Patient is on S/C Lovenox 40 mg qd. (4) Elevated troponin Current Visit: Yes Status: Acute Plan to address problem: Management as per primary care and cardiology (5) NSTEMI (non-ST elevated myocardial infarction) Current Visit: Yes Status: Acute Plan to address problem: Management as per cardiology. (6) Pneumonia Current Visit: Yes Status: Acute Qualifiers: Laterality: bilateral Plan to address problem: Patient was treated with ceftriaxone, zosyn and zithromax. Patient Running low grade temp. Has leukocytosis. Chest xray done 04/15/20 reported mild basilar airspace opacities which likely represent atelectasis but could represent an evolving pneumonia. If patient continuosly running fever, recommend to place him back on antibiotics like zosy n. Subjective Date of service: 04/17/20 Principal diagnosis: Ac on Ch Hypercapnic & hypoxemic Resp Failure; Severe Sepsis; Jamar PNA; ALS Interval history: Patient awake. Resting on assist control mechanical ventilation, rate 10, Tidal volume 400, FIO2 30%, PEEP 6 and O2 saturation running 99%. Continue s pontaneous breathing trials as tolerated.Patient running low grade fever and has leukocytosis. Chest xray done 04/15/20 reported mild basilar airspace opacities which likely represent atelectasis but could represent an evolving pneumonia. If patient continuosly running fever, recommend to place hin on antibiotics like zosyn. Objective Vital Signs - 12hr 04/17/20 04/17/20 04/17/20 03:00 04:00 04:42 Temperature 98.2 F Pulse Rate 103 H 110 H 111 H Respiratory 13 13 Rate Blood Pressure 101/66 107/71 O2 Sat by Pulse Oximetry 04/17/20 04/17/20 04/17/20 04:43 05:00 06:00 Temperature Pulse Rate 110 H 111 H 104 H Respiratory 26 H 13 Rate Blood Pressure 107/71 103/63 100/62 O2 Sat by Pulse 98 97 Oximetry 04/17/20 04/17/20 04/17/20 07:00 08:00 08:37 Temperature 98.4 F Pulse Rate 108 H 111 H 98 H Respiratory 21 11 L Rate Blood Pressure 106/70 110/70 110/70 O2 Sat by Pulse 99 97 98 Oximetry 04/17/20 04/17/20 04/17/20 09:00 09:14 10:00 Temperature Pulse Rate 109 H 115 H 101 H Respiratory 20 11 L Rate Blood Pressure 105/71 105/71 91/63 O2 Sat by Pulse 98 99 Oximetry 04/17/20 04/17/20 04/17/20 11:00 11:27 12:00 Temperature 99.4 F Pulse Rate 96 H 111 H 105 H Respiratory 17 23 18 Rate Blood Pressure 100/65 100/65 100/66 O2 Sat by Pulse 100 Oximetry Constitutional: no acute distress, alert, other (thin middle aged male with normal respiratory effort at rest on MVS) Eyes: non-icteric ENT: oropharynx moist, other (S/P Tracheostomy) Neck: supple, no lymphadenopathy, no JVD Effort: mildly labored Ascultation: Bilateral: diminished breath sounds, wheezes, rhonchi Percussion: Bilateral: not dull Cardiovascular: regular rate and rhythm, other (S1,S2, no murmurs) Gastrointestinal: normoactive bowel sounds, soft, non-tender, non-distended, other (+ distended but non tender suprapubis) Integumentary: normal, decubitus ulcer (sacral / gluteal) Extremities: no cyanosis, no edema, pulses normal, other (atrophic looking limbs) Neurologic: pupils equal and round, other (motor strength in extremities 1-2/5, awake, alert, mouths words to make needs known) Psychiatric: depressed CBC and BMP: 04/17/20 06:53 04/17/20 06:53 ABG, PT/INR, D-dimer: ABG ABG pH 7.371 (7.320-7.450) 03/08/20 12:34 POC ABG pCO2 63.1 mmHg (32.0-48.0) H 03/08/20 12:34 ABG pCO2 60.1 mm Hg 03/06/20 04:34 POC ABG pO2 90.5 mmHg (83-108) 03/08/20 12:34 ABG pO2 88.6 mm Hg (80.0-90.0) 03/06/20 04:34 POC ABG HCO3 35.7 03/08/20 12:34 ABG O2 Saturation 97.0 % (95.0-99.0) 03/06/20 04:34 PT/INR, D-dimer PT 15.6 Sec. (12.2-14.9) H 02/24/20 09:19 INR 1.21 (0.87-1.13) H 02/24/20 09:19 D-Dimer 1311.96 ng/mlDDU (0-234) H 02/24/20 09:19 Abnormal lab findings: Abnormal Labs 02/24/20 02/24/20 02/24/20 09:19 09:19 09:19 WBC 20.2 H RBC 5.05 H Hgb Hct MCV MCH RDW 15.3 H Plt Count Lymph % (Auto) Lymph # (Auto) [place] # (Auto) Seg Neutrophils % Seg Neuts % (Manual) 86.0 H Lymphocytes % (Manual) 1.0 L Monocytes % (Manual) Basophils % (Manual) Seg Neutrophils # Seg Neutrophils # Man 17.4 H Lymphocytes # (Manual) 0.2 L Monocytes # (Manual) Eosinophils # (Manual) Basophils # (Manual) PT 15.6 H INR 1.21 H D-Dimer 1311.96 H ABG pH POC ABG pCO2 POC ABG pO2 ABG pO2 ABG HCO3 ABG O2 Saturation ABG Base Excess ABG Hemoglobin ABG Oxyhemoglobin ABG Potassium ABG Glucose Oxyhemoglobin Carboxyhemoglobin Sodium 135 L Potassium 3.2 L Chloride 92.2 L Carbon Dioxide BUN 6 L Creatinine < 0.2 L Glucose 124 H POC Glucose Calcium Ferritin Total Bilirubin 2.30 H Alkaline Phosphatase 132 H Lactate Dehydrogenase Total Creatine Kinase CK-MB (CK-2) Rel Index Troponin T 0.080 H C-Reactive Protein Total Protein Albumin 3.6 L Prealbumin LDL Cholesterol Direct 41 L Arterial Blood Glucose Arterial Blood Ionized Calcium Urine WBC (Auto) 02/24/20 02/24/20 02/24/20 09:19 09:58 10:01 WBC RBC Hgb Hct MCV MCH RDW Plt Count Lymph % (Auto) Lymph # (Auto) [place] # (Auto) Seg Neutrophils % Seg Neuts % (Manual) Lymphocytes % (Manual) Monocytes % (Manual) Basophils % (Manual) Seg Neutrophils # Seg Neutrophils # Man Lymphocytes # (Manual) Monocytes # (Manual) Eosinophils # (Manual) Basophils # (Manual) PT INR D-Dimer ABG pH 7.176 L* POC ABG pCO2 POC ABG pO2 ABG pO2 91.2 H ABG HCO3 ABG O2 Saturation ABG Base Excess -4.6 L ABG Hemoglobin ABG Oxyhemoglobin ABG Potassium ABG Glucose Oxyhemoglobin 92.6 L Carboxyhemoglobin Sodium Potassium Chloride Carbon Dioxide BUN Creatinine Glucose POC Glucose Calcium Ferritin 1715.0 H Total Bilirubin Alkaline Phosphatase Lactate Dehydrogenase 303 H Total Creatine Kinase CK-MB (CK-2) Rel Index Troponin T C-Reactive Protein 26.10 H Total Protein Albumin Prealbumin LDL Cholesterol Direct Arterial Blood Glucose Arterial Blood Ionized Calcium Urine WBC (Auto) 02/24/20 02/24/20 02/24/20 11:52 13:45 19:35 WBC RBC Hgb Hct MCV MCH RDW Plt Count Lymph % (Auto) Lymph # (Auto) [place] # (Auto) Seg Neutrophils % Seg Neuts % (Manual) Lymphocytes % (Manual) Monocytes % (Manual) Basophils % (Manual) Seg Neutrophils # Seg Neutrophils # Man Lymphocytes # (Manual) Monocytes # (Manual) Eosinophils # (Manual) Basophils # (Manual) PT INR D-Dimer ABG pH 7.051 L* 7.300 L POC ABG pCO2 POC ABG pO2 ABG pO2 94.7 H 75.1 L ABG HCO3 18.0 L ABG O2 Saturation 93.5 L ABG Base Excess -6.8 L -7.8 L ABG Hemoglobin 13.2 L 11.9 L ABG Oxyhemoglobin ABG Potassium ABG Glucose Oxyhemoglobin 91.0 L 92.7 L Carboxyhemoglobin Sodium Potassium Chloride Carbon Dioxide BUN Creatinine Glucose POC Glucose Calcium Ferritin Total Bilirubin Alkaline Phosphatase Lactate Dehydrogenase Total Creatine Kinase CK-MB (CK-2) Rel Index Troponin T 0.034 H D C-Reactive Protein Total Protein Albumin Prealbumin LDL Cholesterol Direct Arterial Blood Glucose Arterial Blood Ionized Calcium Urine WBC (Auto) 02/25/20 02/25/20 02/25/20 04:00 04:00 12:26 WBC 22.9 H RBC Hgb Hct MCV 83 L MCH 27 L RDW Plt Count 468 H Lymph % (Auto) Lymph # (Auto) [place] # (Auto) Seg Neutrophils % Seg Neuts % (Manual) 89.0 H Lymphocytes % (Manual) 7.0 L Monocytes % (Manual) Basophils % (Manual) Seg Neutrophils # Seg Neutrophils # Man 20.4 H Lymphocytes # (Manual) Monocytes # (Manual) Eosinophils # (Manual) Basophils # (Manual) PT INR D-Dimer ABG pH POC ABG pCO2 POC ABG pO2 ABG pO2 ABG HCO3 ABG O2 Saturation ABG Base Excess ABG Hemoglobin ABG Oxyhemoglobin ABG Potassium 2.6 L ABG Glucose 142 H Oxyhemoglobin Carboxyhemoglobin Sodium Potassium 3.2 L Chloride Carbon Dioxide 18 L BUN Creatinine 0.2 L Glucose 114 H POC Glucose Calcium Ferritin Total Bilirubin Alkaline Phosphatase Lactate Dehydrogenase Total Creatine Kinase CK-MB (CK-2) Rel Index Troponin T C-Reactive Protein Total Protein Albumin 3.5 L Prealbumin LDL Cholesterol Direct Arterial Blood Glucose 142 H Arterial Blood Ionized Calcium Urine WBC (Auto) 02/26/20 02/26/20 02/26/20 15:58 17:00 23:43 WBC RBC Hgb Hct MCV MCH RDW Plt Count Lymph % (Auto) Lymph # (Auto) [place] # (Auto) Seg Neutrophils % Seg Neuts % (Manual) Lymphocytes % (Manual) Monocytes % (Manual) Basophils % (Manual) Seg Neutrophils # Seg Neutrophils # Man Lymphocytes # (Manual) Monocytes # (Manual) Eosinophils # (Manual) Basophils # (Manual) PT INR D-Dimer ABG pH 7.502 H POC ABG pCO2 POC ABG pO2 213.6 H ABG pO2 ABG HCO3 ABG O2 Saturation ABG Base Excess ABG Hemoglobin ABG Oxyhemoglobin 99.2 H ABG Potassium 2.9 L ABG Glucose 160 H Oxyhemoglobin Carboxyhemoglobin 0.4 L Sodium Potassium Chloride Carbon Dioxide BUN Creatinine Glucose POC Glucose 189 H 120 H Calcium Ferritin Total Bilirubin Alkaline Phosphatase Lactate Dehydrogenase Total Creatine Kinase CK-MB (CK-2) Rel Index Troponin T C-Reactive Protein Total Protein Albumin Prealbumin LDL Cholesterol Direct Arterial Blood Glucose 160 H Arterial Blood Ionized Calcium 4.5 L Urine WBC (Auto) 02/27/20 02/27/20 02/27/20 05:00 07:04 17:45 WBC RBC Hgb Hct MCV MCH RDW Plt Count Lymph % (Auto) Lymph # (Auto) [place] # (Auto) Seg Neutrophils % Seg Neuts % (Manual) Lymphocytes % (Manual) Monocytes % (Manual) Basophils % (Manual) Seg Neutrophils # Seg Neutrophils # Man Lymphocytes # (Manual) Monocytes # (Manual) Eosinophils # (Manual) Basophils # (Manual) PT INR D-Dimer ABG pH 7.524 H POC ABG pCO2 POC ABG pO2 ABG pO2 ABG HCO3 ABG O2 Saturation ABG Base Excess ABG Hemoglobin ABG Oxyhemoglobin ABG Potassium 3.0 L ABG Glucose 143 H Oxyhemoglobin Carboxyhemoglobin Sodium Potassium Chloride Carbon Dioxide BUN Creatinine Glucose POC Glucose 154 H 175 H Calcium Ferritin Total Bilirubin Alkaline Phosphatase Lactate Dehydrogenase Total Creatine Kinase CK-MB (CK-2) Rel Index Troponin T C-Reactive Protein Total Protein Albumin Prealbumin LDL Cholesterol Direct Arterial Blood Glucose 143 H Arterial Blood Ionized Calcium Urine WBC (Auto) 02/27/20 02/28/20 02/28/20 Unknown 00:21 04:15 WBC 18.7 H RBC Hgb Hct MCV MCH RDW Plt Count Lymph % (Auto) 8.7 L Lymph # (Auto) Steele # (Auto) 1.2 H Seg Neutrophils % 84.6 H Seg Neuts % (Manual) Lymphocytes % (Manual) Monocytes % (Manual) Basophils % (Manual) Seg Neutrophils # 15.9 H Seg Neutrophils # Man Lymphocytes # (Manual) Monocytes # (Manual) Eosinophils # (Manual) Basophils # (Manual) PT INR D-Dimer ABG pH POC ABG pCO2 POC ABG pO2 ABG pO2 ABG HCO3 ABG O2 Saturation ABG Base Excess ABG Hemoglobin ABG Oxyhemoglobin ABG Potassium ABG Glucose Oxyhemoglobin Carboxyhemoglobin Sodium Potassium 2.9 L* Chloride Carbon Dioxide 33 H D BUN Creatinine < 0.2 L Glucose 157 H POC Glucose 134 H Calcium Ferritin Total Bilirubin Alkaline Phosphatase Lactate Dehydrogenase Total Creatine Kinase CK-MB (CK-2) Rel Index Troponin T C-Reactive Protein Total Protein Albumin Prealbumin LDL Cholesterol Direct Arterial Blood Glucose Arterial Blood Ionized Calcium Urine WBC (Auto) 02/28/20 02/28/20 02/28/20 04:15 05:16 05:39 WBC RBC Hgb Hct MCV MCH RDW Plt Count Lymph % (Auto) Lymph # (Auto) [place] # (Auto) Seg Neutrophils % Seg Neuts % (Manual) Lymphocytes % (Manual) Monocytes % (Manual) Basophils % (Manual) Seg Neutrophils # Seg Neutrophils # Man Lymphocytes # (Manual) Monocytes # (Manual) Eosinophils # (Manual) Basophils # (Manual) PT INR D-Dimer ABG pH POC ABG pCO2 POC ABG pO2 ABG pO2 142.9 H ABG HCO3 34.1 H ABG O2 Saturation ABG Base Excess 8.3 H ABG Hemoglobin ABG Oxyhemoglobin ABG Potassium ABG Glucose Oxyhemoglobin Carboxyhemoglobin Sodium 151 H Potassium Chloride Carbon Dioxide 32 H BUN Creatinine 0.2 L Glucose 167 H POC Glucose 138 H Calcium Ferritin Total Bilirubin Alkaline Phosphatase Lactate Dehydrogenase Total Creatine Kinase CK-MB (CK-2) Rel Index Troponin T C-Reactive Protein Total Protein Albumin Prealbumin LDL Cholesterol Direct Arterial Blood Glucose Arterial Blood Ionized Calcium Urine WBC (Auto) 02/28/20 02/28/20 02/28/20 11:05 11:33 12:54 WBC RBC Hgb Hct MCV MCH RDW Plt Count Lymph % (Auto) Lymph # (Auto) [place] # (Auto) Seg Neutrophils % Seg Neuts % (Manual) Lymphocytes % (Manual) Monocytes % (Manual) Basophils % (Manual) Seg Neutrophils # Seg Neutrophils # Man Lymphocytes # (Manual) Monocytes # (Manual) Eosinophils # (Manual) Basophils # (Manual) PT INR D-Dimer ABG pH POC ABG pCO2 POC ABG pO2 ABG pO2 ABG HCO3 ABG O2 Saturation ABG Base Excess ABG Hemoglobin ABG Oxyhemoglobin ABG Potassium ABG Glucose Oxyhemoglobin Carboxyhemoglobin Sodium Potassium Chloride Carbon Dioxide BUN Creatinine Glucose POC Glucose 160 H Calcium Ferritin Total Bilirubin Alkaline Phosphatase Lactate Dehydrogenase Total Creatine Kinase CK-MB (CK-2) Rel Index Troponin T C-Reactive Protein 4.70 H Total Protein Albumin Prealbumin 0.090 L LDL Cholesterol Direct Arterial Blood Glucose Arterial Blood Ionized Calcium Urine WBC (Auto) 02/28/20 02/29/20 02/29/20 17:34 00:44 04:05 WBC 19.6 H RBC Hgb Hct MCV MCH 27 L RDW 15.4 H Plt Count Lymph % (Auto) Lymph # (Auto) [place] # (Auto) Seg Neutrophils % Seg Neuts % (Manual) 86.0 H Lymphocytes % (Manual) 7.0 L Monocytes % (Manual) Basophils % (Manual) Seg Neutrophils # Seg Neutrophils # Man 16.9 H Lymphocytes # (Manual) Monocytes # (Manual) 1.2 H Eosinophils # (Manual) Basophils # (Manual) PT INR D-Dimer ABG pH POC ABG pCO2 POC ABG pO2 ABG pO2 ABG HCO3 ABG O2 Saturation ABG Base Excess ABG Hemoglobin ABG Oxyhemoglobin ABG Potassium ABG Glucose Oxyhemoglobin Carboxyhemoglobin Sodium Potassium Chloride Carbon Dioxide BUN Creatinine Glucose POC Glucose 136 H 156 H Calcium Ferritin Total Bilirubin Alkaline Phosphatase Lactate Dehydrogenase Total Creatine Kinase CK-MB (CK-2) Rel Index Troponin T C-Reactive Protein Total Protein Albumin Prealbumin LDL Cholesterol Direct Arterial Blood Glucose Arterial Blood Ionized Calcium Urine WBC (Auto) 02/29/20 02/29/20 02/29/20 04:05 05:14 05:33 WBC RBC Hgb Hct MCV MCH RDW Plt Count Lymph % (Auto) Lymph # (Auto) [place] # (Auto) Seg Neutrophils % Seg Neuts % (Manual) Lymphocytes % (Manual) Monocytes % (Manual) Basophils % (Manual) Seg Neutrophils # Seg Neutrophils # Man Lymphocytes # (Manual) Monocytes # (Manual) Eosinophils # (Manual) Basophils # (Manual) PT INR D-Dimer ABG pH POC ABG pCO2 54.3 H POC ABG pO2 124.8 H ABG pO2 ABG HCO3 ABG O2 Saturation ABG Base Excess ABG Hemoglobin ABG Oxyhemoglobin ABG Potassium ABG Glucose 185 H Oxyhemoglobin Carboxyhemoglobin Sodium 148 H Potassium Chloride Carbon Dioxide 33 H BUN Creatinine < 0.2 L Glucose 173 H POC Glucose 152 H Calcium Ferritin Total Bilirubin Alkaline Phosphatase Lactate Dehydrogenase Total Creatine Kinase CK-MB (CK-2) Rel Index Troponin T C-Reactive Protein Total Protein Albumin Prealbumin LDL Cholesterol Direct Arterial Blood Glucose 185 H Arterial Blood Ionized Calcium Urine WBC (Auto) 03/01/20 03/01/20 03/01/20 00:00 03:45 04:33 WBC 23.1 H RBC Hgb Hct MCV MCH 27 L RDW 15.3 H Plt Count Lymph % (Auto) Lymph # (Auto) [place] # (Auto) Seg Neutrophils % Seg Neuts % (Manual) 92.0 H Lymphocytes % (Manual) 6.0 L Monocytes % (Manual) Basophils % (Manual) Seg Neutrophils # Seg Neutrophils # Man 21.3 H Lymphocytes # (Manual) Monocytes # (Manual) Eosinophils # (Manual) 0.5 H Basophils # (Manual) PT INR D-Dimer ABG pH 7.492 H POC ABG pCO2 POC ABG pO2 ABG pO2 157.1 H ABG HCO3 32.3 H ABG O2 Saturation ABG Base Excess 8.1 H ABG Hemoglobin 13.2 L ABG Oxyhemoglobin ABG Potassium ABG Glucose Oxyhemoglobin Carboxyhemoglobin Sodium Potassium Chloride Carbon Dioxide BUN Creatinine Glucose POC Glucose 109 H Calcium Ferritin Total Bilirubin Alkaline Phosphatase Lactate Dehydrogenase Total Creatine Kinase CK-MB (CK-2) Rel Index Troponin T C-Reactive Protein Total Protein Albumin Prealbumin LDL Cholesterol Direct Arterial Blood Glucose Arterial Blood Ionized Calcium Urine WBC (Auto) 03/01/20 03/01/20 03/01/20 04:33 05:29 12:32 WBC RBC Hgb Hct MCV MCH RDW Plt Count Lymph % (Auto) Lymph # (Auto) [place] # (Auto) Seg Neutrophils % Seg Neuts % (Manual) Lymphocytes % (Manual) Monocytes % (Manual) Basophils % (Manual) Seg Neutrophils # Seg Neutrophils # Man Lymphocytes # (Manual) Monocytes # (Manual) Eosinophils # (Manual) Basophils # (Manual) PT INR D-Dimer ABG pH POC ABG pCO2 POC ABG pO2 ABG pO2 ABG HCO3 ABG O2 Saturation ABG Base Excess ABG Hemoglobin ABG Oxyhemoglobin ABG Potassium ABG Glucose Oxyhemoglobin Carboxyhemoglobin Sodium 146 H Potassium Chloride Carbon Dioxide 32 H BUN Creatinine < 0.2 L Glucose 120 H POC Glucose 120 H 128 H Calcium Ferritin Total Bilirubin Alkaline Phosphatase Lactate Dehydrogenase Total Creatine Kinase CK-MB (CK-2) Rel Index Troponin T C-Reactive Protein Total Protein Albumin Prealbumin LDL Cholesterol Direct Arterial Blood Glucose Arterial Blood Ionized Calcium Urine WBC (Auto) 03/01/20 03/01/20 03/02/20 17:38 23:46 06:13 WBC RBC Hgb Hct MCV MCH RDW Plt Count Lymph % (Auto) Lymph # (Auto) [place] # (Auto) Seg Neutrophils % Seg Neuts % (Manual) Lymphocytes % (Manual) Monocytes % (Manual) Basophils % (Manual) Seg Neutrophils # Seg Neutrophils # Man Lymphocytes # (Manual) Monocytes # (Manual) Eosinophils # (Manual) Basophils # (Manual) PT INR D-Dimer ABG pH POC ABG pCO2 POC ABG pO2 ABG pO2 ABG HCO3 ABG O2 Saturation ABG Base Excess ABG Hemoglobin ABG Oxyhemoglobin ABG Potassium ABG Glucose Oxyhemoglobin Carboxyhemoglobin Sodium Potassium Chloride Carbon Dioxide BUN Creatinine Glucose POC Glucose 114 H 121 H 120 H Calcium Ferritin Total Bilirubin Alkaline Phosphatase Lactate Dehydrogenase Total Creatine Kinase CK-MB (CK-2) Rel Index Troponin T C-Reactive Protein Total Protein Albumin Prealbumin LDL Cholesterol Direct Arterial Blood Glucose Arterial Blood Ionized Calcium Urine WBC (Auto) 03/02/20 03/02/20 03/03/20 09:47 09:47 10:21 WBC 23.6 H RBC Hgb Hct MCV MCH RDW 15.3 H Plt Count 494 H Lymph % (Auto) Lymph # (Auto) [place] # (Auto) Seg Neutrophils % Seg Neuts % (Manual) 85.0 H Lymphocytes % (Manual) 6.0 L Monocytes % (Manual) Basophils % (Manual) Seg Neutrophils # Seg Neutrophils # Man 20.1 H Lymphocytes # (Manual) Monocytes # (Manual) 1.7 H Eosinophils # (Manual) Basophils # (Manual) PT INR D-Dimer ABG pH POC ABG pCO2 POC ABG pO2 ABG pO2 ABG HCO3 ABG O2 Saturation ABG Base Excess ABG Hemoglobin ABG Oxyhemoglobin ABG Potassium 3.3 L ABG Glucose 158 H Oxyhemoglobin Carboxyhemoglobin Sodium Potassium Chloride Carbon Dioxide BUN Creatinine < 0.2 L Glucose 177 H POC Glucose Calcium Ferritin Total Bilirubin Alkaline Phosphatase Lactate Dehydrogenase Total Creatine Kinase CK-MB (CK-2) Rel Index Troponin T C-Reactive Protein Total Protein Albumin Prealbumin LDL Cholesterol Direct Arterial Blood Glucose 158 H Arterial Blood Ionized Calcium Urine WBC (Auto) 03/03/20 03/04/20 03/04/20 21:30 00:00 12:23 WBC RBC Hgb Hct MCV MCH RDW Plt Count Lymph % (Auto) Lymph # (Auto) [place] # (Auto) Seg Neutrophils % Seg Neuts % (Manual) Lymphocytes % (Manual) Monocytes % (Manual) Basophils % (Manual) Seg Neutrophils # Seg Neutrophils # Man Lymphocytes # (Manual) Monocytes # (Manual) Eosinophils # (Manual) Basophils # (Manual) PT INR D-Dimer ABG pH 7.328 L POC ABG pCO2 POC ABG pO2 ABG pO2 68.4 L ABG HCO3 35.0 H ABG O2 Saturation 93.9 L ABG Base Excess 6.8 H ABG Hemoglobin 12.7 L ABG Oxyhemoglobin ABG Potassium ABG Glucose Oxyhemoglobin 91.9 L Carboxyhemoglobin Sodium Potassium Chloride Carbon Dioxide BUN Creatinine Glucose POC Glucose 187 H 163 H Calcium Ferritin Total Bilirubin Alkaline Phosphatase Lactate Dehydrogenase Total Creatine Kinase CK-MB (CK-2) Rel Index Troponin T C-Reactive Protein Total Protein Albumin Prealbumin LDL Cholesterol Direct Arterial Blood Glucose Arterial Blood Ionized Calcium Urine WBC (Auto) 03/04/20 03/04/20 03/05/20 18:15 21:30 06:02 WBC RBC Hgb Hct MCV MCH RDW Plt Count Lymph % (Auto) Lymph # (Auto) [place] # (Auto) Seg Neutrophils % Seg Neuts % (Manual) Lymphocytes % (Manual) Monocytes % (Manual) Basophils % (Manual) Seg Neutrophils # Seg Neutrophils # Man Lymphocytes # (Manual) Monocytes # (Manual) Eosinophils # (Manual) Basophils # (Manual) PT INR D-Dimer ABG pH 7.297 L POC ABG pCO2 POC ABG pO2 ABG pO2 ABG HCO3 41.0 H ABG O2 Saturation ABG Base Excess 11.0 H ABG Hemoglobin 13.1 L ABG Oxyhemoglobin ABG Potassium ABG Glucose Oxyhemoglobin 94.5 L Carboxyhemoglobin Sodium Potassium Chloride Carbon Dioxide BUN Creatinine Glucose POC Glucose 192 H 127 H Calcium Ferritin Total Bilirubin Alkaline Phosphatase Lactate Dehydrogenase Total Creatine Kinase CK-MB (CK-2) Rel Index Troponin T C-Reactive Protein Total Protein Albumin Prealbumin LDL Cholesterol Direct Arterial Blood Glucose Arterial Blood Ionized Calcium Urine WBC (Auto) 03/05/20 03/05/20 03/06/20 12:09 16:42 00:24 WBC RBC Hgb Hct MCV MCH RDW Plt Count Lymph % (Auto) Lymph # (Auto) [place] # (Auto) Seg Neutrophils % Seg Neuts % (Manual) Lymphocytes % (Manual) Monocytes % (Manual) Basophils % (Manual) Seg Neutrophils # Seg Neutrophils # Man Lymphocytes # (Manual) Monocytes # (Manual) Eosinophils # (Manual) Basophils # (Manual) PT INR D-Dimer ABG pH POC ABG pCO2 POC ABG pO2 ABG pO2 ABG HCO3 ABG O2 Saturation ABG Base Excess ABG Hemoglobin ABG Oxyhemoglobin ABG Potassium ABG Glucose Oxyhemoglobin Carboxyhemoglobin Sodium Potassium Chloride Carbon Dioxide BUN Creatinine Glucose POC Glucose 147 H 114 H 134 H Calcium Ferritin Total Bilirubin Alkaline Phosphatase Lactate Dehydrogenase Total Creatine Kinase CK-MB (CK-2) Rel Index Troponin T C-Reactive Protein Total Protein Albumin Prealbumin LDL Cholesterol Direct Arterial Blood Glucose Arterial Blood Ionized Calcium Urine WBC (Auto) 03/06/20 03/06/20 03/06/20 04:34 05:53 06:08 WBC 25.4 H RBC Hgb 10.5 L Hct 32.7 L MCV MCH 27 L RDW 15.3 H Plt Count 634 H Lymph % (Auto) Lymph # (Auto) [place] # (Auto) Seg Neutrophils % Seg Neuts % (Manual) 88.0 H Lymphocytes % (Manual) 2.0 L Monocytes % (Manual) 8.0 H Basophils % (Manual) Seg Neutrophils # Seg Neutrophils # Man 22.4 H Lymphocytes # (Manual) 0.5 L Monocytes # (Manual) 2.0 H Eosinophils # (Manual) Basophils # (Manual) PT INR D-Dimer ABG pH POC ABG pCO2 POC ABG pO2 ABG pO2 ABG HCO3 37.9 H ABG O2 Saturation ABG Base Excess 11.4 H ABG Hemoglobin 10.6 L ABG Oxyhemoglobin ABG Potassium ABG Glucose Oxyhemoglobin 94.7 L Carboxyhemoglobin Sodium Potassium Chloride Carbon Dioxide BUN Creatinine Glucose POC Glucose 135 H Calcium Ferritin Total Bilirubin Alkaline Phosphatase Lactate Dehydrogenase Total Creatine Kinase CK-MB (CK-2) Rel Index Troponin T C-Reactive Protein Total Protein Albumin Prealbumin LDL Cholesterol Direct Arterial Blood Glucose Arterial Blood Ionized Calcium Urine WBC (Auto) 03/06/20 03/06/20 03/06/20 06:08 12:19 19:10 WBC RBC Hgb Hct MCV MCH RDW Plt Count Lymph % (Auto) Lymph # (Auto) [place] # (Auto) Seg Neutrophils % Seg Neuts % (Manual) Lymphocytes % (Manual) Monocytes % (Manual) Basophils % (Manual) Seg Neutrophils # Seg Neutrophils # Man Lymphocytes # (Manual) Monocytes # (Manual) Eosinophils # (Manual) Basophils # (Manual) PT INR D-Dimer ABG pH POC ABG pCO2 POC ABG pO2 ABG pO2 ABG HCO3 ABG O2 Saturation ABG Base Excess ABG Hemoglobin ABG Oxyhemoglobin ABG Potassium ABG Glucose Oxyhemoglobin Carboxyhemoglobin Sodium 150 H D Potassium Chloride Carbon Dioxide 39 H D BUN 23 H Creatinine < 0.2 L Glucose 144 H POC Glucose 169 H 152 H Calcium Ferritin Total Bilirubin Alkaline Phosphatase Lactate Dehydrogenase Total Creatine Kinase CK-MB (CK-2) Rel Index Troponin T C-Reactive Protein Total Protein Albumin 3.3 L Prealbumin LDL Cholesterol Direct Arterial Blood Glucose Arterial Blood Ionized Calcium Urine WBC (Auto) 03/06/20 03/07/20 03/07/20 23:58 04:25 04:25 WBC 22.1 H RBC Hgb 10.9 L Hct 32.9 L MCV MCH RDW 15.5 H Plt Count 739 H Lymph % (Auto) 7.8 L Lymph # (Auto) [place] # (Auto) 1.3 H Seg Neutrophils % 85.5 H Seg Neuts % (Manual) Lymphocytes % (Manual) Monocytes % (Manual) Basophils % (Manual) Seg Neutrophils # 18.9 H Seg Neutrophils # Man Lymphocytes # (Manual) Monocytes # (Manual) Eosinophils # (Manual) Basophils # (Manual) PT INR D-Dimer ABG pH POC ABG pCO2 POC ABG pO2 ABG pO2 ABG HCO3 ABG O2 Saturation ABG Base Excess ABG Hemoglobin ABG Oxyhemoglobin ABG Potassium ABG Glucose Oxyhemoglobin Carboxyhemoglobin Sodium 146 H Potassium Chloride Carbon Dioxide 37 H BUN Creatinine < 0.2 L Glucose 118 H POC Glucose 111 H Calcium Ferritin Total Bilirubin Alkaline Phosphatase Lactate Dehydrogenase Total Creatine Kinase CK-MB (CK-2) Rel Index Troponin T C-Reactive Protein Total Protein Albumin 3.7 L Prealbumin LDL Cholesterol Direct Arterial Blood Glucose Arterial Blood Ionized Calcium Urine WBC (Auto) 03/07/20 03/07/20 03/07/20 05:20 17:45 23:32 WBC RBC Hgb Hct MCV MCH RDW Plt Count Lymph % (Auto) Lymph # (Auto) [place] # (Auto) Seg Neutrophils % Seg Neuts % (Manual) Lymphocytes % (Manual) Monocytes % (Manual) Basophils % (Manual) Seg Neutrophils # Seg Neutrophils # Man Lymphocytes # (Manual) Monocytes # (Manual) Eosinophils # (Manual) Basophils # (Manual) PT INR D-Dimer ABG pH POC ABG pCO2 POC ABG pO2 ABG pO2 ABG HCO3 ABG O2 Saturation ABG Base Excess ABG Hemoglobin ABG Oxyhemoglobin ABG Potassium ABG Glucose Oxyhemoglobin Carboxyhemoglobin Sodium Potassium Chloride Carbon Dioxide BUN Creatinine Glucose POC Glucose 113 H 124 H 210 H Calcium Ferritin Total Bilirubin Alkaline Phosphatase Lactate Dehydrogenase Total Creatine Kinase CK-MB (CK-2) Rel Index Troponin T C-Reactive Protein Total Protein Albumin Prealbumin LDL Cholesterol Direct Arterial Blood Glucose Arterial Blood Ionized Calcium Urine WBC (Auto) 03/08/20 03/08/20 03/08/20 05:35 06:43 06:43 WBC 28.9 H RBC 3.53 L Hgb 9.7 L Hct 30.3 L MCV MCH RDW 15.6 H Plt Count 578 H Lymph % (Auto) Lymph # (Auto) [place] # (Auto) Seg Neutrophils % Seg Neuts % (Manual) 93.0 H Lymphocytes % (Manual) 4.0 L Monocytes % (Manual) Basophils % (Manual) Seg Neutrophils # Seg Neutrophils # Man 26.9 H Lymphocytes # (Manual) Monocytes # (Manual) Eosinophils # (Manual) Basophils # (Manual) PT INR D-Dimer ABG pH POC ABG pCO2 POC ABG pO2 ABG pO2 ABG HCO3 ABG O2 Saturation ABG Base Excess ABG Hemoglobin ABG Oxyhemoglobin ABG Potassium ABG Glucose Oxyhemoglobin Carboxyhemoglobin Sodium 146 H Potassium Chloride Carbon Dioxide 35 H BUN 34 H Creatinine 0.3 L D Glucose 125 H POC Glucose 147 H Calcium Ferritin Total Bilirubin Alkaline Phosphatase Lactate Dehydrogenase Total Creatine Kinase CK-MB (CK-2) Rel Index Troponin T C-Reactive Protein Total Protein 5.9 L Albumin 3.2 L Prealbumin LDL Cholesterol Direct Arterial Blood Glucose Arterial Blood Ionized Calcium Urine WBC (Auto) 03/08/20 03/08/20 03/08/20 08:57 11:14 12:34 WBC RBC Hgb Hct MCV MCH RDW Plt Count Lymph % (Auto) Lymph # (Auto) [place] # (Auto) Seg Neutrophils % Seg Neuts % (Manual) Lymphocytes % (Manual) Monocytes % (Manual) Basophils % (Manual) Seg Neutrophils # Seg Neutrophils # Man Lymphocytes # (Manual) Monocytes # (Manual) Eosinophils # (Manual) Basophils # (Manual) PT INR D-Dimer ABG pH POC ABG pCO2 63.1 H POC ABG pO2 ABG pO2 ABG HCO3 ABG O2 Saturation ABG Base Excess ABG Hemoglobin 10.9 L ABG Oxyhemoglobin ABG Potassium ABG Glucose 176 H Oxyhemoglobin Carboxyhemoglobin Sodium Potassium Chloride Carbon Dioxide BUN Creatinine Glucose POC Glucose 171 H Calcium Ferritin Total Bilirubin Alkaline Phosphatase Lactate Dehydrogenase Total Creatine Kinase CK-MB (CK-2) Rel Index Troponin T C-Reactive Protein Total Protein Albumin Prealbumin LDL Cholesterol Direct Arterial Blood Glucose 176 H Arterial Blood Ionized Calcium 4.5 L Urine WBC (Auto) 10.0 H 03/08/20 03/08/20 03/09/20 18:02 23:43 05:49 WBC RBC Hgb Hct MCV MCH RDW Plt Count Lymph % (Auto) Lymph # (Auto) [place] # (Auto) Seg Neutrophils % Seg Neuts % (Manual) Lymphocytes % (Manual) Monocytes % (Manual) Basophils % (Manual) Seg Neutrophils # Seg Neutrophils # Man Lymphocytes # (Manual) Monocytes # (Manual) Eosinophils # (Manual) Basophils # (Manual) PT INR D-Dimer ABG pH POC ABG pCO2 POC ABG pO2 ABG pO2 ABG HCO3 ABG O2 Saturation ABG Base Excess ABG Hemoglobin ABG Oxyhemoglobin ABG Potassium ABG Glucose Oxyhemoglobin Carboxyhemoglobin Sodium Potassium Chloride Carbon Dioxide BUN Creatinine Glucose POC Glucose 157 H 134 H 163 H Calcium Ferritin Total Bilirubin Alkaline Phosphatase Lactate Dehydrogenase Total Creatine Kinase CK-MB (CK-2) Rel Index Troponin T C-Reactive Protein Total Protein Albumin Prealbumin LDL Cholesterol Direct Arterial Blood Glucose Arterial Blood Ionized Calcium Urine WBC (Auto) 03/09/20 03/09/20 03/09/20 08:35 08:35 12:11 WBC 23.4 H RBC 3.36 L Hgb 9.3 L Hct 28.8 L MCV MCH RDW 15.9 H Plt Count 521 H Lymph % (Auto) Lymph # (Auto) [place] # (Auto) Seg Neutrophils % Seg Neuts % (Manual) 87.0 H Lymphocytes % (Manual) 4.0 L Monocytes % (Manual) 9.0 H Basophils % (Manual) Seg Neutrophils # Seg Neutrophils # Man 20.4 H Lymphocytes # (Manual) 0.9 L Monocytes # (Manual) 2.1 H Eosinophils # (Manual) Basophils # (Manual) PT INR D-Dimer ABG pH POC ABG pCO2 POC ABG pO2 ABG pO2 ABG HCO3 ABG O2 Saturation ABG Base Excess ABG Hemoglobin ABG Oxyhemoglobin ABG Potassium ABG Glucose Oxyhemoglobin Carboxyhemoglobin Sodium 147 H Potassium Chloride Carbon Dioxide 37 H BUN 63 H Creatinine Glucose 154 H POC Glucose 128 H Calcium Ferritin Total Bilirubin Alkaline Phosphatase Lactate Dehydrogenase Total Creatine Kinase CK-MB (CK-2) Rel Index Troponin T C-Reactive Protein Total Protein Albumin Prealbumin LDL Cholesterol Direct Arterial Blood Glucose Arterial Blood Ionized Calcium Urine WBC (Auto) 03/09/20 03/10/20 03/10/20 17:51 00:25 05:41 WBC RBC Hgb Hct MCV MCH RDW Plt Count Lymph % (Auto) Lymph # (Auto) [place] # (Auto) Seg Neutrophils % Seg Neuts % (Manual) Lymphocytes % (Manual) Monocytes % (Manual) Basophils % (Manual) Seg Neutrophils # Seg Neutrophils # Man Lymphocytes # (Manual) Monocytes # (Manual) Eosinophils # (Manual) Basophils # (Manual) PT INR D-Dimer ABG pH POC ABG pCO2 POC ABG pO2 ABG pO2 ABG HCO3 ABG O2 Saturation ABG Base Excess ABG Hemoglobin ABG Oxyhemoglobin ABG Potassium ABG Glucose Oxyhemoglobin Carboxyhemoglobin Sodium Potassium Chloride Carbon Dioxide BUN Creatinine Glucose POC Glucose 127 H 128 H 153 H Calcium Ferritin Total Bilirubin Alkaline Phosphatase Lactate Dehydrogenase Total Creatine Kinase CK-MB (CK-2) Rel Index Troponin T C-Reactive Protein Total Protein Albumin Prealbumin LDL Cholesterol Direct Arterial Blood Glucose Arterial Blood Ionized Calcium Urine WBC (Auto) 03/10/20 03/10/20 03/10/20 06:14 06:14 12:02 WBC 18.3 H RBC 3.45 L Hgb 9.5 L Hct 29.5 L MCV MCH RDW 16.1 H Plt Count 494 H Lymph % (Auto) Lymph # (Auto) [place] # (Auto) Seg Neutrophils % Seg Neuts % (Manual) 95.0 H Lymphocytes % (Manual) 1.0 L Monocytes % (Manual) Basophils % (Manual) Seg Neutrophils # Seg Neutrophils # Man 17.4 H Lymphocytes # (Manual) 0.2 L Monocytes # (Manual) Eosinophils # (Manual) Basophils # (Manual) PT INR D-Dimer ABG pH POC ABG pCO2 POC ABG pO2 ABG pO2 ABG HCO3 ABG O2 Saturation ABG Base Excess ABG Hemoglobin ABG Oxyhemoglobin ABG Potassium ABG Glucose Oxyhemoglobin Carboxyhemoglobin Sodium 149 H Potassium Chloride Carbon Dioxide 35 H BUN 34 H Creatinine 0.2 L D Glucose 177 H POC Glucose 151 H Calcium Ferritin Total Bilirubin Alkaline Phosphatase Lactate Dehydrogenase Total Creatine Kinase CK-MB (CK-2) Rel Index Troponin T C-Reactive Protein Total Protein Albumin Prealbumin LDL Cholesterol Direct Arterial Blood Glucose Arterial Blood Ionized Calcium Urine WBC (Auto) 03/10/20 03/10/20 03/11/20 17:41 23:53 05:02 WBC RBC Hgb Hct MCV MCH RDW Plt Count Lymph % (Auto) Lymph # (Auto) [place] # (Auto) Seg Neutrophils % Seg Neuts % (Manual) Lymphocytes % (Manual) Monocytes % (Manual) Basophils % (Manual) Seg Neutrophils # Seg Neutrophils # Man Lymphocytes # (Manual) Monocytes # (Manual) Eosinophils # (Manual) Basophils # (Manual) PT INR D-Dimer ABG pH POC ABG pCO2 POC ABG pO2 ABG pO2 ABG HCO3 ABG O2 Saturation ABG Base Excess ABG Hemoglobin ABG Oxyhemoglobin ABG Potassium ABG Glucose Oxyhemoglobin Carboxyhemoglobin Sodium Potassium Chloride Carbon Dioxide BUN Creatinine Glucose POC Glucose 168 H 142 H 146 H Calcium Ferritin Total Bilirubin Alkaline Phosphatase Lactate Dehydrogenase Total Creatine Kinase CK-MB (CK-2) Rel Index Troponin T C-Reactive Protein Total Protein Albumin Prealbumin LDL Cholesterol Direct Arterial Blood Glucose Arterial Blood Ionized Calcium Urine WBC (Auto) 03/11/20 03/11/20 03/11/20 11:30 14:01 14:01 WBC 19.7 H RBC 3.04 L Hgb 8.7 L Hct 25.8 L MCV MCH RDW 15.6 H Plt Count Lymph % (Auto) Lymph # (Auto) [place] # (Auto) Seg Neutrophils % Seg Neuts % (Manual) Lymphocytes % (Manual) Monocytes % (Manual) Basophils % (Manual) Seg Neutrophils # Seg Neutrophils # Man Lymphocytes # (Manual) Monocytes # (Manual) Eosinophils # (Manual) Basophils # (Manual) PT INR D-Dimer ABG pH POC ABG pCO2 POC ABG pO2 ABG pO2 ABG HCO3 ABG O2 Saturation ABG Base Excess ABG Hemoglobin ABG Oxyhemoglobin ABG Potassium ABG Glucose Oxyhemoglobin Carboxyhemoglobin Sodium 151 H Potassium Chloride Carbon Dioxide 37 H BUN Creatinine < 0.2 L Glucose 171 H POC Glucose 248 H Calcium Ferritin Total Bilirubin Alkaline Phosphatase Lactate Dehydrogenase Total Creatine Kinase CK-MB (CK-2) Rel Index Troponin T C-Reactive Protein Total Protein Albumin Prealbumin LDL Cholesterol Direct Arterial Blood Glucose Arterial Blood Ionized Calcium Urine WBC (Auto) 03/11/20 03/11/20 03/12/20 17:09 23:52 04:39 WBC 19.9 H RBC 3.16 L Hgb 8.9 L Hct 27.5 L MCV MCH RDW 15.7 H Plt Count Lymph % (Auto) 6.8 L Lymph # (Auto) [place] # (Auto) 1.2 H Seg Neutrophils % 86.0 H Seg Neuts % (Manual) Lymphocytes % (Manual) Monocytes % (Manual) Basophils % (Manual) Seg Neutrophils # 17.1 H Seg Neutrophils # Man Lymphocytes # (Manual) Monocytes # (Manual) Eosinophils # (Manual) Basophils # (Manual) PT INR D-Dimer ABG pH POC ABG pCO2 POC ABG pO2 ABG pO2 ABG HCO3 ABG O2 Saturation ABG Base Excess ABG Hemoglobin ABG Oxyhemoglobin ABG Potassium ABG Glucose Oxyhemoglobin Carboxyhemoglobin Sodium Potassium Chloride Carbon Dioxide BUN Creatinine Glucose POC Glucose 124 H 131 H Calcium Ferritin Total Bilirubin Alkaline Phosphatase Lactate Dehydrogenase Total Creatine Kinase CK-MB (CK-2) Rel Index Troponin T C-Reactive Protein Total Protein Albumin Prealbumin LDL Cholesterol Direct Arterial Blood Glucose Arterial Blood Ionized Calcium Urine WBC (Auto) 03/12/20 03/12/20 03/12/20 04:39 05:28 11:34 WBC RBC Hgb Hct MCV MCH RDW Plt Count Lymph % (Auto) Lymph # (Auto) [place] # (Auto) Seg Neutrophils % Seg Neuts % (Manual) Lymphocytes % (Manual) Monocytes % (Manual) Basophils % (Manual) Seg Neutrophils # Seg Neutrophils # Man Lymphocytes # (Manual) Monocytes # (Manual) Eosinophils # (Manual) Basophils # (Manual) PT INR D-Dimer ABG pH POC ABG pCO2 POC ABG pO2 ABG pO2 ABG HCO3 ABG O2 Saturation ABG Base Excess ABG Hemoglobin ABG Oxyhemoglobin ABG Potassium ABG Glucose Oxyhemoglobin Carboxyhemoglobin Sodium 147 H Potassium Chloride Carbon Dioxide 40 H BUN Creatinine < 0.2 L Glucose 175 H POC Glucose 167 H 144 H Calcium Ferritin Total Bilirubin Alkaline Phosphatase Lactate Dehydrogenase Total Creatine Kinase CK-MB (CK-2) Rel Index Troponin T C-Reactive Protein Total Protein Albumin Prealbumin LDL Cholesterol Direct Arterial Blood Glucose Arterial Blood Ionized Calcium Urine WBC (Auto) 03/12/20 03/12/20 03/13/20 17:32 23:57 05:57 WBC RBC Hgb Hct MCV MCH RDW Plt Count Lymph % (Auto) Lymph # (Auto) [place] # (Auto) Seg Neutrophils % Seg Neuts % (Manual) Lymphocytes % (Manual) Monocytes % (Manual) Basophils % (Manual) Seg Neutrophils # Seg Neutrophils # Man Lymphocytes # (Manual) Monocytes # (Manual) Eosinophils # (Manual) Basophils # (Manual) PT INR D-Dimer ABG pH POC ABG pCO2 POC ABG pO2 ABG pO2 ABG HCO3 ABG O2 Saturation ABG Base Excess ABG Hemoglobin ABG Oxyhemoglobin ABG Potassium ABG Glucose Oxyhemoglobin Carboxyhemoglobin Sodium Potassium Chloride Carbon Dioxide BUN Creatinine Glucose POC Glucose 141 H 137 H 161 H Calcium Ferritin Total Bilirubin Alkaline Phosphatase Lactate Dehydrogenase Total Creatine Kinase CK-MB (CK-2) Rel Index Troponin T C-Reactive Protein Total Protein Albumin Prealbumin LDL Cholesterol Direct Arterial Blood Glucose Arterial Blood Ionized Calcium Urine WBC (Auto) 03/13/20 03/13/20 03/13/20 12:28 14:14 18:39 WBC RBC Hgb Hct MCV MCH RDW Plt Count Lymph % (Auto) Lymph # (Auto) [place] # (Auto) Seg Neutrophils % Seg Neuts % (Manual) Lymphocytes % (Manual) Monocytes % (Manual) Basophils % (Manual) Seg Neutrophils # Seg Neutrophils # Man Lymphocytes # (Manual) Monocytes # (Manual) Eosinophils # (Manual) Basophils # (Manual) PT INR D-Dimer ABG pH POC ABG pCO2 POC ABG pO2 ABG pO2 ABG HCO3 ABG O2 Saturation ABG Base Excess ABG Hemoglobin ABG Oxyhemoglobin ABG Potassium ABG Glucose Oxyhemoglobin Carboxyhemoglobin Sodium Potassium Chloride Carbon Dioxide 39 H BUN Creatinine < 0.2 L Glucose 129 H POC Glucose 130 H 125 H Calcium Ferritin Total Bilirubin Alkaline Phosphatase Lactate Dehydrogenase Total Creatine Kinase CK-MB (CK-2) Rel Index Troponin T C-Reactive Protein Total Protein Albumin Prealbumin LDL Cholesterol Direct Arterial Blood Glucose Arterial Blood Ionized Calcium Urine WBC (Auto) 03/13/20 03/14/20 03/14/20 23:33 05:24 08:07 WBC 16.8 H RBC 2.81 L Hgb 7.9 L Hct 23.9 L MCV MCH RDW 15.9 H Plt Count Lymph % (Auto) Lymph # (Auto) [place] # (Auto) Seg Neutrophils % Seg Neuts % (Manual) 84.0 H Lymphocytes % (Manual) 10.0 L Monocytes % (Manual) Basophils % (Manual) Seg Neutrophils # Seg Neutrophils # Man 14.1 H Lymphocytes # (Manual) Monocytes # (Manual) Eosinophils # (Manual) Basophils # (Manual) PT INR D-Dimer ABG pH POC ABG pCO2 POC ABG pO2 ABG pO2 ABG HCO3 ABG O2 Saturation ABG Base Excess ABG Hemoglobin ABG Oxyhemoglobin ABG Potassium ABG Glucose Oxyhemoglobin Carboxyhemoglobin Sodium Potassium Chloride Carbon Dioxide BUN Creatinine Glucose POC Glucose 146 H 125 H Calcium Ferritin Total Bilirubin Alkaline Phosphatase Lactate Dehydrogenase Total Creatine Kinase CK-MB (CK-2) Rel Index Troponin T C-Reactive Protein Total Protein Albumin Prealbumin LDL Cholesterol Direct Arterial Blood Glucose Arterial Blood Ionized Calcium Urine WBC (Auto) 03/14/20 03/14/20 03/14/20 08:07 12:21 18:26 WBC RBC Hgb Hct MCV MCH RDW Plt Count Lymph % (Auto) Lymph # (Auto) [place] # (Auto) Seg Neutrophils % Seg Neuts % (Manual) Lymphocytes % (Manual) Monocytes % (Manual) Basophils % (Manual) Seg Neutrophils # Seg Neutrophils # Man Lymphocytes # (Manual) Monocytes # (Manual) Eosinophils # (Manual) Basophils # (Manual) PT INR D-Dimer ABG pH POC ABG pCO2 POC ABG pO2 ABG pO2 ABG HCO3 ABG O2 Saturation ABG Base Excess ABG Hemoglobin ABG Oxyhemoglobin ABG Potassium ABG Glucose Oxyhemoglobin Carboxyhemoglobin Sodium Potassium Chloride 97.0 L Carbon Dioxide 37 H BUN Creatinine < 0.2 L Glucose 129 H POC Glucose 109 H 142 H Calcium 8.3 L Ferritin Total Bilirubin Alkaline Phosphatase Lactate Dehydrogenase Total Creatine Kinase CK-MB (CK-2) Rel Index Troponin T C-Reactive Protein Total Protein Albumin Prealbumin LDL Cholesterol Direct Arterial Blood Glucose Arterial Blood Ionized Calcium Urine WBC (Auto) 03/14/20 03/15/20 03/15/20 23:57 05:46 08:06 WBC 19.7 H RBC 3.29 L Hgb 9.1 L Hct 28.0 L MCV MCH RDW 15.9 H Plt Count Lymph % (Auto) Lymph # (Auto) [place] # (Auto) Seg Neutrophils % Seg Neuts % (Manual) Lymphocytes % (Manual) Monocytes % (Manual) Basophils % (Manual) Seg Neutrophils # Seg Neutrophils # Man Lymphocytes # (Manual) Monocytes # (Manual) Eosinophils # (Manual) Basophils # (Manual) PT INR D-Dimer ABG pH POC ABG pCO2 POC ABG pO2 ABG pO2 ABG HCO3 ABG O2 Saturation ABG Base Excess ABG Hemoglobin ABG Oxyhemoglobin ABG Potassium ABG Glucose Oxyhemoglobin Carboxyhemoglobin Sodium Potassium Chloride Carbon Dioxide BUN Creatinine Glucose POC Glucose 157 H 118 H Calcium Ferritin Total Bilirubin Alkaline Phosphatase Lactate Dehydrogenase Total Creatine Kinase CK-MB (CK-2) Rel Index Troponin T C-Reactive Protein Total Protein Albumin Prealbumin LDL Cholesterol Direct Arterial Blood Glucose Arterial Blood Ionized Calcium Urine WBC (Auto) 03/15/20 03/15/20 03/15/20 08:06 12:44 18:09 WBC RBC Hgb Hct MCV MCH RDW Plt Count Lymph % (Auto) Lymph # (Auto) [place] # (Auto) Seg Neutrophils % Seg Neuts % (Manual) Lymphocytes % (Manual) Monocytes % (Manual) Basophils % (Manual) Seg Neutrophils # Seg Neutrophils # Man Lymphocytes # (Manual) Monocytes # (Manual) Eosinophils # (Manual) Basophils # (Manual) PT INR D-Dimer ABG pH POC ABG pCO2 POC ABG pO2 ABG pO2 ABG HCO3 ABG O2 Saturation ABG Base Excess ABG Hemoglobin ABG Oxyhemoglobin ABG Potassium ABG Glucose Oxyhemoglobin Carboxyhemoglobin Sodium 136 L Potassium Chloride 93.6 L Carbon Dioxide 37 H BUN Creatinine < 0.2 L Glucose 132 H POC Glucose 151 H 164 H Calcium Ferritin Total Bilirubin Alkaline Phosphatase Lactate Dehydrogenase Total Creatine Kinase CK-MB (CK-2) Rel Index Troponin T C-Reactive Protein Total Protein Albumin Prealbumin LDL Cholesterol Direct Arterial Blood Glucose Arterial Blood Ionized Calcium Urine WBC (Auto) 03/15/20 03/16/20 03/16/20 23:26 05:39 11:58 WBC RBC Hgb Hct MCV MCH RDW Plt Count Lymph % (Auto) Lymph # (Auto) [place] # (Auto) Seg Neutrophils % Seg Neuts % (Manual) Lymphocytes % (Manual) Monocytes % (Manual) Basophils % (Manual) Seg Neutrophils # Seg Neutrophils # Man Lymphocytes # (Manual) Monocytes # (Manual) Eosinophils # (Manual) Basophils # (Manual) PT INR D-Dimer ABG pH POC ABG pCO2 POC ABG pO2 ABG pO2 ABG HCO3 ABG O2 Saturation ABG Base Excess ABG Hemoglobin ABG Oxyhemoglobin ABG Potassium ABG Glucose Oxyhemoglobin Carboxyhemoglobin Sodium Potassium Chloride Carbon Dioxide BUN Creatinine Glucose POC Glucose 136 H 116 H 109 H Calcium Ferritin Total Bilirubin Alkaline Phosphatase Lactate Dehydrogenase Total Creatine Kinase CK-MB (CK-2) Rel Index Troponin T C-Reactive Protein Total Protein Albumin Prealbumin LDL Cholesterol Direct Arterial Blood Glucose Arterial Blood Ionized Calcium Urine WBC (Auto) 03/16/20 03/17/20 03/17/20 23:56 04:40 04:40 WBC 18.0 H RBC 3.33 L Hgb 9.5 L Hct 28.8 L MCV MCH RDW 16.4 H Plt Count 499 H Lymph % (Auto) Lymph # (Auto) [place] # (Auto) Seg Neutrophils % Seg Neuts % (Manual) 82.0 H Lymphocytes % (Manual) 8.0 L Monocytes % (Manual) Basophils % (Manual) Seg Neutrophils # Seg Neutrophils # Man 14.8 H Lymphocytes # (Manual) Monocytes # (Manual) 1.3 H Eosinophils # (Manual) Basophils # (Manual) 0.2 H PT INR D-Dimer ABG pH POC ABG pCO2 POC ABG pO2 ABG pO2 ABG HCO3 ABG O2 Saturation ABG Base Excess ABG Hemoglobin ABG Oxyhemoglobin ABG Potassium ABG Glucose Oxyhemoglobin Carboxyhemoglobin Sodium Potassium Chloride 97.7 L Carbon Dioxide 32 H BUN Creatinine < 0.2 L Glucose 114 H POC Glucose 131 H Calcium Ferritin Total Bilirubin Alkaline Phosphatase Lactate Dehydrogenase Total Creatine Kinase CK-MB (CK-2) Rel Index Troponin T C-Reactive Protein Total Protein Albumin Prealbumin LDL Cholesterol Direct Arterial Blood Glucose Arterial Blood Ionized Calcium Urine WBC (Auto) 03/18/20 03/18/20 03/18/20 00:21 05:21 11:55 WBC RBC Hgb Hct MCV MCH RDW Plt Count Lymph % (Auto) Lymph # (Auto) [place] # (Auto) Seg Neutrophils % Seg Neuts % (Manual) Lymphocytes % (Manual) Monocytes % (Manual) Basophils % (Manual) Seg Neutrophils # Seg Neutrophils # Man Lymphocytes # (Manual) Monocytes # (Manual) Eosinophils # (Manual) Basophils # (Manual) PT INR D-Dimer ABG pH POC ABG pCO2 POC ABG pO2 ABG pO2 ABG HCO3 ABG O2 Saturation ABG Base Excess ABG Hemoglobin ABG Oxyhemoglobin ABG Potassium ABG Glucose Oxyhemoglobin Carboxyhemoglobin Sodium Potassium Chloride Carbon Dioxide BUN Creatinine Glucose POC Glucose 124 H 138 H 119 H Calcium Ferritin Total Bilirubin Alkaline Phosphatase Lactate Dehydrogenase Total Creatine Kinase CK-MB (CK-2) Rel Index Troponin T C-Reactive Protein Total Protein Albumin Prealbumin LDL Cholesterol Direct Arterial Blood Glucose Arterial Blood Ionized Calcium Urine WBC (Auto) 03/18/20 03/18/20 03/19/20 17:03 23:58 05:24 WBC RBC Hgb Hct MCV MCH RDW Plt Count Lymph % (Auto) Lymph # (Auto) [place] # (Auto) Seg Neutrophils % Seg Neuts % (Manual) Lymphocytes % (Manual) Monocytes % (Manual) Basophils % (Manual) Seg Neutrophils # Seg Neutrophils # Man Lymphocytes # (Manual) Monocytes # (Manual) Eosinophils # (Manual) Basophils # (Manual) PT INR D-Dimer ABG pH POC ABG pCO2 POC ABG pO2 ABG pO2 ABG HCO3 ABG O2 Saturation ABG Base Excess ABG Hemoglobin ABG Oxyhemoglobin ABG Potassium ABG Glucose Oxyhemoglobin Carboxyhemoglobin Sodium Potassium Chloride Carbon Dioxide BUN Creatinine Glucose POC Glucose 128 H 128 H 115 H Calcium Ferritin Total Bilirubin Alkaline Phosphatase Lactate Dehydrogenase Total Creatine Kinase CK-MB (CK-2) Rel Index Troponin T C-Reactive Protein Total Protein Albumin Prealbumin LDL Cholesterol Direct Arterial Blood Glucose Arterial Blood Ionized Calcium Urine WBC (Auto) 03/19/20 03/19/20 03/19/20 08:05 08:05 11:56 WBC 16.8 H RBC 3.36 L Hgb 9.4 L Hct 28.8 L MCV MCH RDW 17.4 H Plt Count 567 H Lymph % (Auto) 7.8 L Lymph # (Auto) [place] # (Auto) 1.2 H Seg Neutrophils % 83.5 H Seg Neuts % (Manual) Lymphocytes % (Manual) Monocytes % (Manual) Basophils % (Manual) Seg Neutrophils # 14.1 H Seg Neutrophils # Man Lymphocytes # (Manual) Monocytes # (Manual) Eosinophils # (Manual) Basophils # (Manual) PT INR D-Dimer ABG pH POC ABG pCO2 POC ABG pO2 ABG pO2 ABG HCO3 ABG O2 Saturation ABG Base Excess ABG Hemoglobin ABG Oxyhemoglobin ABG Potassium ABG Glucose Oxyhemoglobin Carboxyhemoglobin Sodium Potassium Chloride Carbon Dioxide 36 H BUN Creatinine < 0.2 L Glucose 135 H POC Glucose 128 H Calcium Ferritin Total Bilirubin Alkaline Phosphatase Lactate Dehydrogenase Total Creatine Kinase CK-MB (CK-2) Rel Index Troponin T C-Reactive Protein Total Protein Albumin Prealbumin LDL Cholesterol Direct Arterial Blood Glucose Arterial Blood Ionized Calcium Urine WBC (Auto) 03/19/20 03/20/20 03/20/20 23:59 05:12 16:52 WBC RBC Hgb Hct MCV MCH RDW Plt Count Lymph % (Auto) Lymph # (Auto) [place] # (Auto) Seg Neutrophils % Seg Neuts % (Manual) Lymphocytes % (Manual) Monocytes % (Manual) Basophils % (Manual) Seg Neutrophils # Seg Neutrophils # Man Lymphocytes # (Manual) Monocytes # (Manual) Eosinophils # (Manual) Basophils # (Manual) PT INR D-Dimer ABG pH POC ABG pCO2 POC ABG pO2 ABG pO2 ABG HCO3 ABG O2 Saturation ABG Base Excess ABG Hemoglobin ABG Oxyhemoglobin ABG Potassium ABG Glucose Oxyhemoglobin Carboxyhemoglobin Sodium Potassium Chloride Carbon Dioxide BUN Creatinine Glucose POC Glucose 120 H 131 H 124 H Calcium Ferritin Total Bilirubin Alkaline Phosphatase Lactate Dehydrogenase Total Creatine Kinase CK-MB (CK-2) Rel Index Troponin T C-Reactive Protein Total Protein Albumin Prealbumin LDL Cholesterol Direct Arterial Blood Glucose Arterial Blood Ionized Calcium Urine WBC (Auto) 03/20/20 03/21/20 03/21/20 23:35 04:50 07:35 WBC 15.2 H RBC 3.39 L Hgb 9.4 L Hct 29.4 L MCV MCH RDW 17.6 H Plt Count 518 H Lymph % (Auto) Lymph # (Auto) [place] # (Auto) Seg Neutrophils % Seg Neuts % (Manual) 83.0 H Lymphocytes % (Manual) 10.0 L Monocytes % (Manual) Basophils % (Manual) 2.0 H Seg Neutrophils # Seg Neutrophils # Man 12.6 H Lymphocytes # (Manual) Monocytes # (Manual) Eosinophils # (Manual) Basophils # (Manual) 0.3 H PT INR D-Dimer ABG pH POC ABG pCO2 POC ABG pO2 ABG pO2 ABG HCO3 ABG O2 Saturation ABG Base Excess ABG Hemoglobin ABG Oxyhemoglobin ABG Potassium ABG Glucose Oxyhemoglobin Carboxyhemoglobin Sodium Potassium Chloride Carbon Dioxide BUN Creatinine Glucose POC Glucose 125 H 127 H Calcium Ferritin Total Bilirubin Alkaline Phosphatase Lactate Dehydrogenase Total Creatine Kinase CK-MB (CK-2) Rel Index Troponin T C-Reactive Protein Total Protein Albumin Prealbumin LDL Cholesterol Direct Arterial Blood Glucose Arterial Blood Ionized Calcium Urine WBC (Auto) 03/21/20 03/21/20 03/21/20 07:35 11:45 17:22 WBC RBC Hgb Hct MCV MCH RDW Plt Count Lymph % (Auto) Lymph # (Auto) [place] # (Auto) Seg Neutrophils % Seg Neuts % (Manual) Lymphocytes % (Manual) Monocytes % (Manual) Basophils % (Manual) Seg Neutrophils # Seg Neutrophils # Man Lymphocytes # (Manual) Monocytes # (Manual) Eosinophils # (Manual) Basophils # (Manual) PT INR D-Dimer ABG pH POC ABG pCO2 POC ABG pO2 ABG pO2 ABG HCO3 ABG O2 Saturation ABG Base Excess ABG Hemoglobin ABG Oxyhemoglobin ABG Potassium ABG Glucose Oxyhemoglobin Carboxyhemoglobin Sodium 136 L Potassium Chloride 97.7 L Carbon Dioxide 32 H BUN Creatinine < 0.2 L Glucose 103 H POC Glucose 126 H 120 H Calcium Ferritin Total Bilirubin Alkaline Phosphatase Lactate Dehydrogenase Total Creatine Kinase CK-MB (CK-2) Rel Index Troponin T C-Reactive Protein Total Protein Albumin Prealbumin LDL Cholesterol Direct Arterial Blood Glucose Arterial Blood Ionized Calcium Urine WBC (Auto) 03/22/20 03/22/20 03/22/20 05:09 06:34 06:34 WBC 17.5 H RBC 3.52 L Hgb 10.0 L Hct 30.7 L MCV MCH RDW 17.5 H Plt Count 499 H Lymph % (Auto) Lymph # (Auto) [place] # (Auto) Seg Neutrophils % Seg Neuts % (Manual) 80.0 H Lymphocytes % (Manual) 10.0 L Monocytes % (Manual) Basophils % (Manual) Seg Neutrophils # Seg Neutrophils # Man 14.0 H Lymphocytes # (Manual) Monocytes # (Manual) Eosinophils # (Manual) Basophils # (Manual) PT INR D-Dimer ABG pH POC ABG pCO2 POC ABG pO2 ABG pO2 ABG HCO3 ABG O2 Saturation ABG Base Excess ABG Hemoglobin ABG Oxyhemoglobin ABG Potassium ABG Glucose Oxyhemoglobin Carboxyhemoglobin Sodium Potassium Chloride 96.6 L Carbon Dioxide 38 H BUN Creatinine < 0.2 L Glucose 139 H POC Glucose 125 H Calcium Ferritin Total Bilirubin Alkaline Phosphatase Lactate Dehydrogenase Total Creatine Kinase CK-MB (CK-2) Rel Index Troponin T C-Reactive Protein Total Protein Albumin Prealbumin LDL Cholesterol Direct Arterial Blood Glucose Arterial Blood Ionized Calcium Urine WBC (Auto) 03/22/20 03/22/20 03/22/20 11:45 18:00 23:32 WBC RBC Hgb Hct MCV MCH RDW Plt Count Lymph % (Auto) Lymph # (Auto) [place] # (Auto) Seg Neutrophils % Seg Neuts % (Manual) Lymphocytes % (Manual) Monocytes % (Manual) Basophils % (Manual) Seg Neutrophils # Seg Neutrophils # Man Lymphocytes # (Manual) Monocytes # (Manual) Eosinophils # (Manual) Basophils # (Manual) PT INR D-Dimer ABG pH POC ABG pCO2 POC ABG pO2 ABG pO2 ABG HCO3 ABG O2 Saturation ABG Base Excess ABG Hemoglobin ABG Oxyhemoglobin ABG Potassium ABG Glucose Oxyhemoglobin Carboxyhemoglobin Sodium Potassium Chloride Carbon Dioxide BUN Creatinine Glucose POC Glucose 135 H 133 H Calcium Ferritin Total Bilirubin Alkaline Phosphatase Lactate Dehydrogenase Total Creatine Kinase CK-MB (CK-2) Rel Index Troponin T 0.113 H* C-Reactive Protein Total Protein Albumin Prealbumin LDL Cholesterol Direct Arterial Blood Glucose Arterial Blood Ionized Calcium Urine WBC (Auto) 03/23/20 03/23/20 03/23/20 01:47 06:21 07:57 WBC RBC Hgb Hct MCV MCH RDW Plt Count Lymph % (Auto) Lymph # (Auto) [place] # (Auto) Seg Neutrophils % Seg Neuts % (Manual) Lymphocytes % (Manual) Monocytes % (Manual) Basophils % (Manual) Seg Neutrophils # Seg Neutrophils # Man Lymphocytes # (Manual) Monocytes # (Manual) Eosinophils # (Manual) Basophils # (Manual) PT INR D-Dimer ABG pH POC ABG pCO2 POC ABG pO2 ABG pO2 ABG HCO3 ABG O2 Saturation ABG Base Excess ABG Hemoglobin ABG Oxyhemoglobin ABG Potassium ABG Glucose Oxyhemoglobin Carboxyhemoglobin Sodium Potassium Chloride Carbon Dioxide BUN Creatinine Glucose POC Glucose 130 H Calcium Ferritin Total Bilirubin Alkaline Phosphatase Lactate Dehydrogenase Total Creatine Kinase CK-MB (CK-2) Rel Index Troponin T 0.143 H* D 0.105 H* D C-Reactive Protein Total Protein Albumin Prealbumin LDL Cholesterol Direct Arterial Blood Glucose Arterial Blood Ionized Calcium Urine WBC (Auto) 03/23/20 03/24/20 03/24/20 12:02 05:33 07:15 WBC 18.0 H RBC Hgb 11.0 L Hct 34.0 L MCV MCH RDW 17.4 H Plt Count 520 H Lymph % (Auto) Lymph # (Auto) [place] # (Auto) Seg Neutrophils % Seg Neuts % (Manual) 88.0 H Lymphocytes % (Manual) 7.0 L Monocytes % (Manual) Basophils % (Manual) Seg Neutrophils # Seg Neutrophils # Man 15.8 H Lymphocytes # (Manual) Monocytes # (Manual) Eosinophils # (Manual) Basophils # (Manual) PT INR D-Dimer ABG pH POC ABG pCO2 POC ABG pO2 ABG pO2 ABG HCO3 ABG O2 Saturation ABG Base Excess ABG Hemoglobin ABG Oxyhemoglobin ABG Potassium ABG Glucose Oxyhemoglobin Carboxyhemoglobin Sodium Potassium Chloride Carbon Dioxide BUN Creatinine Glucose POC Glucose 137 H 112 H Calcium Ferritin Total Bilirubin Alkaline Phosphatase Lactate Dehydrogenase Total Creatine Kinase CK-MB (CK-2) Rel Index Troponin T C-Reactive Protein Total Protein Albumin Prealbumin LDL Cholesterol Direct Arterial Blood Glucose Arterial Blood Ionized Calcium Urine WBC (Auto) 03/24/20 03/24/20 03/24/20 07:15 11:22 23:30 WBC RBC Hgb Hct MCV MCH RDW Plt Count Lymph % (Auto) Lymph # (Auto) [place] # (Auto) Seg Neutrophils % Seg Neuts % (Manual) Lymphocytes % (Manual) Monocytes % (Manual) Basophils % (Manual) Seg Neutrophils # Seg Neutrophils # Man Lymphocytes # (Manual) Monocytes # (Manual) Eosinophils # (Manual) Basophils # (Manual) PT INR D-Dimer ABG pH POC ABG pCO2 POC ABG pO2 ABG pO2 ABG HCO3 ABG O2 Saturation ABG Base Excess ABG Hemoglobin ABG Oxyhemoglobin ABG Potassium ABG Glucose Oxyhemoglobin Carboxyhemoglobin Sodium Potassium Chloride 96.6 L Carbon Dioxide 38 H BUN Creatinine < 0.2 L Glucose 141 H POC Glucose 130 H 120 H Calcium Ferritin Total Bilirubin Alkaline Phosphatase Lactate Dehydrogenase Total Creatine Kinase CK-MB (CK-2) Rel Index Troponin T C-Reactive Protein Total Protein Albumin Prealbumin LDL Cholesterol Direct Arterial Blood Glucose Arterial Blood Ionized Calcium Urine WBC (Auto) 03/25/20 03/25/20 03/25/20 05:48 17:53 23:18 WBC RBC Hgb Hct MCV MCH RDW Plt Count Lymph % (Auto) Lymph # (Auto) [place] # (Auto) Seg Neutrophils % Seg Neuts % (Manual) Lymphocytes % (Manual) Monocytes % (Manual) Basophils % (Manual) Seg Neutrophils # Seg Neutrophils # Man Lymphocytes # (Manual) Monocytes # (Manual) Eosinophils # (Manual) Basophils # (Manual) PT INR D-Dimer ABG pH POC ABG pCO2 POC ABG pO2 ABG pO2 ABG HCO3 ABG O2 Saturation ABG Base Excess ABG Hemoglobin ABG Oxyhemoglobin ABG Potassium ABG Glucose Oxyhemoglobin Carboxyhemoglobin Sodium Potassium Chloride Carbon Dioxide BUN Creatinine Glucose POC Glucose 124 H 109 H 131 H Calcium Ferritin Total Bilirubin Alkaline Phosphatase Lactate Dehydrogenase Total Creatine Kinase CK-MB (CK-2) Rel Index Troponin T C-Reactive Protein Total Protein Albumin Prealbumin LDL Cholesterol Direct Arterial Blood Glucose Arterial Blood Ionized Calcium Urine WBC (Auto) 03/26/20 03/26/20 03/26/20 05:21 08:49 08:49 WBC 19.7 H RBC Hgb 10.7 L Hct 33.5 L MCV MCH 27 L RDW 17.1 H Plt Count 480 H Lymph % (Auto) 5.7 L Lymph # (Auto) 1.1 L [place] # (Auto) 1.2 H Seg Neutrophils % 87.7 H Seg Neuts % (Manual) Lymphocytes % (Manual) Monocytes % (Manual) Basophils % (Manual) Seg Neutrophils # 17.2 H Seg Neutrophils # Man Lymphocytes # (Manual) Monocytes # (Manual) Eosinophils # (Manual) Basophils # (Manual) PT INR D-Dimer ABG pH POC ABG pCO2 POC ABG pO2 ABG pO2 ABG HCO3 ABG O2 Saturation ABG Base Excess ABG Hemoglobin ABG Oxyhemoglobin ABG Potassium ABG Glucose Oxyhemoglobin Carboxyhemoglobin Sodium Potassium Chloride 97.2 L Carbon Dioxide 36 H BUN Creatinine < 0.2 L Glucose 127 H POC Glucose 116 H Calcium Ferritin Total Bilirubin Alkaline Phosphatase Lactate Dehydrogenase Total Creatine Kinase CK-MB (CK-2) Rel Index Troponin T C-Reactive Protein Total Protein Albumin Prealbumin LDL Cholesterol Direct Arterial Blood Glucose Arterial Blood Ionized Calcium Urine WBC (Auto) 03/26/20 03/26/20 03/26/20 11:38 18:44 23:06 WBC RBC Hgb Hct MCV MCH RDW Plt Count Lymph % (Auto) Lymph # (Auto) [place] # (Auto) Seg Neutrophils % Seg Neuts % (Manual) Lymphocytes % (Manual) Monocytes % (Manual) Basophils % (Manual) Seg Neutrophils # Seg Neutrophils # Man Lymphocytes # (Manual) Monocytes # (Manual) Eosinophils # (Manual) Basophils # (Manual) PT INR D-Dimer ABG pH POC ABG pCO2 POC ABG pO2 ABG pO2 ABG HCO3 ABG O2 Saturation ABG Base Excess ABG Hemoglobin ABG Oxyhemoglobin ABG Potassium ABG Glucose Oxyhemoglobin Carboxyhemoglobin Sodium Potassium Chloride Carbon Dioxide BUN Creatinine Glucose POC Glucose 120 H 111 H 134 H Calcium Ferritin Total Bilirubin Alkaline Phosphatase Lactate Dehydrogenase Total Creatine Kinase CK-MB (CK-2) Rel Index Troponin T C-Reactive Protein Total Protein Albumin Prealbumin LDL Cholesterol Direct Arterial Blood Glucose Arterial Blood Ionized Calcium Urine WBC (Auto) 03/27/20 03/27/20 03/27/20 05:41 05:59 05:59 WBC 18.6 H RBC Hgb 10.1 L Hct 31.4 L MCV MCH RDW 17.2 H Plt Count Lymph % (Auto) 8.0 L Lymph # (Auto) [place] # (Auto) 1.2 H Seg Neutrophils % 84.7 H Seg Neuts % (Manual) Lymphocytes % (Manual) Monocytes % (Manual) Basophils % (Manual) Seg Neutrophils # 15.8 H Seg Neutrophils # Man Lymphocytes # (Manual) Monocytes # (Manual) Eosinophils # (Manual) Basophils # (Manual) PT INR D-Dimer ABG pH POC ABG pCO2 POC ABG pO2 ABG pO2 ABG HCO3 ABG O2 Saturation ABG Base Excess ABG Hemoglobin ABG Oxyhemoglobin ABG Potassium ABG Glucose Oxyhemoglobin Carboxyhemoglobin Sodium Potassium Chloride Carbon Dioxide 34 H BUN Creatinine < 0.2 L Glucose 127 H POC Glucose 129 H Calcium Ferritin Total Bilirubin Alkaline Phosphatase Lactate Dehydrogenase Total Creatine Kinase CK-MB (CK-2) Rel Index Troponin T C-Reactive Protein Total Protein Albumin Prealbumin LDL Cholesterol Direct Arterial Blood Glucose Arterial Blood Ionized Calcium Urine WBC (Auto) 03/27/20 03/27/20 03/28/20 17:28 23:22 05:23 WBC RBC Hgb Hct MCV MCH RDW Plt Count Lymph % (Auto) Lymph # (Auto) [place] # (Auto) Seg Neutrophils % Seg Neuts % (Manual) Lymphocytes % (Manual) Monocytes % (Manual) Basophils % (Manual) Seg Neutrophils # Seg Neutrophils # Man Lymphocytes # (Manual) Monocytes # (Manual) Eosinophils # (Manual) Basophils # (Manual) PT INR D-Dimer ABG pH POC ABG pCO2 POC ABG pO2 ABG pO2 ABG HCO3 ABG O2 Saturation ABG Base Excess ABG Hemoglobin ABG Oxyhemoglobin ABG Potassium ABG Glucose Oxyhemoglobin Carboxyhemoglobin Sodium Potassium Chloride Carbon Dioxide BUN Creatinine Glucose POC Glucose 108 H 119 H 129 H Calcium Ferritin Total Bilirubin Alkaline Phosphatase Lactate Dehydrogenase Total Creatine Kinase CK-MB (CK-2) Rel Index Troponin T C-Reactive Protein Total Protein Albumin Prealbumin LDL Cholesterol Direct Arterial Blood Glucose Arterial Blood Ionized Calcium Urine WBC (Auto) 03/28/20 03/28/20 03/28/20 10:28 10:28 11:36 WBC 23.6 H RBC 3.62 L Hgb 10.0 L Hct 30.8 L MCV MCH RDW 16.4 H Plt Count Lymph % (Auto) Lymph # (Auto) [place] # (Auto) Seg Neutrophils % Seg Neuts % (Manual) 89.0 H Lymphocytes % (Manual) 5.0 L Monocytes % (Manual) Basophils % (Manual) Seg Neutrophils # Seg Neutrophils # Man 21.0 H Lymphocytes # (Manual) Monocytes # (Manual) 1.2 H Eosinophils # (Manual) Basophils # (Manual) 0.2 H PT INR D-Dimer ABG pH POC ABG pCO2 POC ABG pO2 ABG pO2 ABG HCO3 ABG O2 Saturation ABG Base Excess ABG Hemoglobin ABG Oxyhemoglobin ABG Potassium ABG Glucose Oxyhemoglobin Carboxyhemoglobin Sodium 134 L Potassium Chloride 94.2 L Carbon Dioxide 35 H BUN Creatinine < 0.2 L Glucose 134 H POC Glucose Calcium Ferritin Total Bilirubin Alkaline Phosphatase Lactate Dehydrogenase Total Creatine Kinase CK-MB (CK-2) Rel Index Troponin T C-Reactive Protein Total Protein Albumin Prealbumin LDL Cholesterol Direct Arterial Blood Glucose Arterial Blood Ionized Calcium Urine WBC (Auto) 39.0 H 03/28/20 03/28/20 03/28/20 11:51 17:08 17:17 WBC RBC Hgb Hct MCV MCH RDW Plt Count Lymph % (Auto) Lymph # (Auto) [place] # (Auto) Seg Neutrophils % Seg Neuts % (Manual) Lymphocytes % (Manual) Monocytes % (Manual) Basophils % (Manual) Seg Neutrophils # Seg Neutrophils # Man Lymphocytes # (Manual) Monocytes # (Manual) Eosinophils # (Manual) Basophils # (Manual) PT INR D-Dimer ABG pH POC ABG pCO2 POC ABG pO2 ABG pO2 ABG HCO3 ABG O2 Saturation ABG Base Excess ABG Hemoglobin ABG Oxyhemoglobin ABG Potassium ABG Glucose Oxyhemoglobin Carboxyhemoglobin Sodium Potassium Chloride Carbon Dioxide BUN Creatinine Glucose POC Glucose 123 H 112 H Calcium Ferritin Total Bilirubin Alkaline Phosphatase Lactate Dehydrogenase Total Creatine Kinase 47 L CK-MB (CK-2) Rel Index 4.6 H Troponin T 0.090 H C-Reactive Protein Total Protein Albumin Prealbumin LDL Cholesterol Direct Arterial Blood Glucose Arterial Blood Ionized Calcium Urine WBC (Auto) 03/28/20 03/29/20 03/29/20 23:22 05:22 10:58 WBC RBC Hgb Hct MCV MCH RDW Plt Count Lymph % (Auto) Lymph # (Auto) [place] # (Auto) Seg Neutrophils % Seg Neuts % (Manual) Lymphocytes % (Manual) Monocytes % (Manual) Basophils % (Manual) Seg Neutrophils # Seg Neutrophils # Man Lymphocytes # (Manual) Monocytes # (Manual) Eosinophils # (Manual) Basophils # (Manual) PT INR D-Dimer ABG pH POC ABG pCO2 POC ABG pO2 ABG pO2 ABG HCO3 ABG O2 Saturation ABG Base Excess ABG Hemoglobin ABG Oxyhemoglobin ABG Potassium ABG Glucose Oxyhemoglobin Carboxyhemoglobin Sodium Potassium Chloride Carbon Dioxide BUN Creatinine Glucose POC Glucose 122 H 116 H 133 H Calcium Ferritin Total Bilirubin Alkaline Phosphatase Lactate Dehydrogenase Total Creatine Kinase CK-MB (CK-2) Rel Index Troponin T C-Reactive Protein Total Protein Albumin Prealbumin LDL Cholesterol Direct Arterial Blood Glucose Arterial Blood Ionized Calcium Urine WBC (Auto) 03/29/20 03/29/20 03/30/20 17:18 23:14 04:57 WBC RBC Hgb Hct MCV MCH RDW Plt Count Lymph % (Auto) Lymph # (Auto) [place] # (Auto) Seg Neutrophils % Seg Neuts % (Manual) Lymphocytes % (Manual) Monocytes % (Manual) Basophils % (Manual) Seg Neutrophils # Seg Neutrophils # Man Lymphocytes # (Manual) Monocytes # (Manual) Eosinophils # (Manual) Basophils # (Manual) PT INR D-Dimer ABG pH POC ABG pCO2 POC ABG pO2 ABG pO2 ABG HCO3 ABG O2 Saturation ABG Base Excess ABG Hemoglobin ABG Oxyhemoglobin ABG Potassium ABG Glucose Oxyhemoglobin Carboxyhemoglobin Sodium Potassium Chloride Carbon Dioxide BUN Creatinine Glucose POC Glucose 111 H 114 H 130 H Calcium Ferritin Total Bilirubin Alkaline Phosphatase Lactate Dehydrogenase Total Creatine Kinase CK-MB (CK-2) Rel Index Troponin T C-Reactive Protein Total Protein Albumin Prealbumin LDL Cholesterol Direct Arterial Blood Glucose Arterial Blood Ionized Calcium Urine WBC (Auto) 03/30/20 03/30/20 03/30/20 11:38 14:47 14:47 WBC 19.9 H RBC Hgb 10.9 L Hct 34.4 L MCV MCH 27 L RDW 16.5 H Plt Count 441 H Lymph % (Auto) 6.4 L Lymph # (Auto) [place] # (Auto) 1.4 H Seg Neutrophils % 86.1 H Seg Neuts % (Manual) Lymphocytes % (Manual) Monocytes % (Manual) Basophils % (Manual) Seg Neutrophils # 17.1 H Seg Neutrophils # Man Lymphocytes # (Manual) Monocytes # (Manual) Eosinophils # (Manual) Basophils # (Manual) PT INR D-Dimer ABG pH POC ABG pCO2 POC ABG pO2 ABG pO2 ABG HCO3 ABG O2 Saturation ABG Base Excess ABG Hemoglobin ABG Oxyhemoglobin ABG Potassium ABG Glucose Oxyhemoglobin Carboxyhemoglobin Sodium 133 L Potassium Chloride 94.6 L Carbon Dioxide 33 H BUN Creatinine < 0.2 L Glucose 194 H POC Glucose 139 H Calcium Ferritin Total Bilirubin Alkaline Phosphatase Lactate Dehydrogenase Total Creatine Kinase CK-MB (CK-2) Rel Index Troponin T C-Reactive Protein Total Protein Albumin 2.8 L Prealbumin LDL Cholesterol Direct Arterial Blood Glucose Arterial Blood Ionized Calcium Urine WBC (Auto) 03/30/20 03/31/20 03/31/20 17:07 05:02 15:21 WBC RBC Hgb Hct MCV MCH RDW Plt Count Lymph % (Auto) Lymph # (Auto) [place] # (Auto) Seg Neutrophils % Seg Neuts % (Manual) Lymphocytes % (Manual) Monocytes % (Manual) Basophils % (Manual) Seg Neutrophils # Seg Neutrophils # Man Lymphocytes # (Manual) Monocytes # (Manual) Eosinophils # (Manual) Basophils # (Manual) PT INR D-Dimer ABG pH POC ABG pCO2 POC ABG pO2 ABG pO2 ABG HCO3 ABG O2 Saturation ABG Base Excess ABG Hemoglobin ABG Oxyhemoglobin ABG Potassium ABG Glucose Oxyhemoglobin Carboxyhemoglobin Sodium Potassium Chloride Carbon Dioxide BUN Creatinine Glucose POC Glucose 163 H 108 H 110 H Calcium Ferritin Total Bilirubin Alkaline Phosphatase Lactate Dehydrogenase Total Creatine Kinase CK-MB (CK-2) Rel Index Troponin T C-Reactive Protein Total Protein Albumin Prealbumin LDL Cholesterol Direct Arterial Blood Glucose Arterial Blood Ionized Calcium Urine WBC (Auto) 03/31/20 03/31/20 04/01/20 17:58 23:19 05:09 WBC RBC Hgb Hct MCV MCH RDW Plt Count Lymph % (Auto) Lymph # (Auto) [place] # (Auto) Seg Neutrophils % Seg Neuts % (Manual) Lymphocytes % (Manual) Monocytes % (Manual) Basophils % (Manual) Seg Neutrophils # Seg Neutrophils # Man Lymphocytes # (Manual) Monocytes # (Manual) Eosinophils # (Manual) Basophils # (Manual) PT INR D-Dimer ABG pH POC ABG pCO2 POC ABG pO2 ABG pO2 ABG HCO3 ABG O2 Saturation ABG Base Excess ABG Hemoglobin ABG Oxyhemoglobin ABG Potassium ABG Glucose Oxyhemoglobin Carboxyhemoglobin Sodium Potassium Chloride Carbon Dioxide BUN Creatinine Glucose POC Glucose 110 H 131 H 124 H Calcium Ferritin Total Bilirubin Alkaline Phosphatase Lactate Dehydrogenase Total Creatine Kinase CK-MB (CK-2) Rel Index Troponin T C-Reactive Protein Total Protein Albumin Prealbumin LDL Cholesterol Direct Arterial Blood Glucose Arterial Blood Ionized Calcium Urine WBC (Auto) 04/01/20 04/01/20 04/01/20 11:50 17:01 23:21 WBC RBC Hgb Hct MCV MCH RDW Plt Count Lymph % (Auto) Lymph # (Auto) [place] # (Auto) Seg Neutrophils % Seg Neuts % (Manual) Lymphocytes % (Manual) Monocytes % (Manual) Basophils % (Manual) Seg Neutrophils # Seg Neutrophils # Man Lymphocytes # (Manual) Monocytes # (Manual) Eosinophils # (Manual) Basophils # (Manual) PT INR D-Dimer ABG pH POC ABG pCO2 POC ABG pO2 ABG pO2 ABG HCO3 ABG O2 Saturation ABG Base Excess ABG Hemoglobin ABG Oxyhemoglobin ABG Potassium ABG Glucose Oxyhemoglobin Carboxyhemoglobin Sodium Potassium Chloride Carbon Dioxide BUN Creatinine Glucose POC Glucose 136 H 115 H 124 H Calcium Ferritin Total Bilirubin Alkaline Phosphatase Lactate Dehydrogenase Total Creatine Kinase CK-MB (CK-2) Rel Index Troponin T C-Reactive Protein Total Protein Albumin Prealbumin LDL Cholesterol Direct Arterial Blood Glucose Arterial Blood Ionized Calcium Urine WBC (Auto) 04/02/20 04/02/20 04/02/20 05:27 11:58 17:58 WBC RBC Hgb Hct MCV MCH RDW Plt Count Lymph % (Auto) Lymph # (Auto) [place] # (Auto) Seg Neutrophils % Seg Neuts % (Manual) Lymphocytes % (Manual) Monocytes % (Manual) Basophils % (Manual) Seg Neutrophils # Seg Neutrophils # Man Lymphocytes # (Manual) Monocytes # (Manual) Eosinophils # (Manual) Basophils # (Manual) PT INR D-Dimer ABG pH POC ABG pCO2 POC ABG pO2 ABG pO2 ABG HCO3 ABG O2 Saturation ABG Base Excess ABG Hemoglobin ABG Oxyhemoglobin ABG Potassium ABG Glucose Oxyhemoglobin Carboxyhemoglobin Sodium Potassium Chloride Carbon Dioxide BUN Creatinine Glucose POC Glucose 117 H 133 H 122 H Calcium Ferritin Total Bilirubin Alkaline Phosphatase Lactate Dehydrogenase Total Creatine Kinase CK-MB (CK-2) Rel Index Troponin T C-Reactive Protein Total Protein Albumin Prealbumin LDL Cholesterol Direct Arterial Blood Glucose Arterial Blood Ionized Calcium Urine WBC (Auto) 04/02/20 04/03/20 04/03/20 23:12 05:11 11:11 WBC RBC Hgb Hct MCV MCH RDW Plt Count Lymph % (Auto) Lymph # (Auto) [place] # (Auto) Seg Neutrophils % Seg Neuts % (Manual) Lymphocytes % (Manual) Monocytes % (Manual) Basophils % (Manual) Seg Neutrophils # Seg Neutrophils # Man Lymphocytes # (Manual) Monocytes # (Manual) Eosinophils # (Manual) Basophils # (Manual) PT INR D-Dimer ABG pH POC ABG pCO2 POC ABG pO2 ABG pO2 ABG HCO3 ABG O2 Saturation ABG Base Excess ABG Hemoglobin ABG Oxyhemoglobin ABG Potassium ABG Glucose Oxyhemoglobin Carboxyhemoglobin Sodium Potassium Chloride Carbon Dioxide BUN Creatinine Glucose POC Glucose 130 H 139 H 136 H Calcium Ferritin Total Bilirubin Alkaline Phosphatase Lactate Dehydrogenase Total Creatine Kinase CK-MB (CK-2) Rel Index Troponin T C-Reactive Protein Total Protein Albumin Prealbumin LDL Cholesterol Direct Arterial Blood Glucose Arterial Blood Ionized Calcium Urine WBC (Auto) 04/03/20 04/03/20 04/04/20 16:51 23:25 05:29 WBC RBC Hgb Hct MCV MCH RDW Plt Count Lymph % (Auto) Lymph # (Auto) [place] # (Auto) Seg Neutrophils % Seg Neuts % (Manual) Lymphocytes % (Manual) Monocytes % (Manual) Basophils % (Manual) Seg Neutrophils # Seg Neutrophils # Man Lymphocytes # (Manual) Monocytes # (Manual) Eosinophils # (Manual) Basophils # (Manual) PT INR D-Dimer ABG pH POC ABG pCO2 POC ABG pO2 ABG pO2 ABG HCO3 ABG O2 Saturation ABG Base Excess ABG Hemoglobin ABG Oxyhemoglobin ABG Potassium ABG Glucose Oxyhemoglobin Carboxyhemoglobin Sodium Potassium Chloride Carbon Dioxide BUN Creatinine Glucose POC Glucose 118 H 111 H 126 H Calcium Ferritin Total Bilirubin Alkaline Phosphatase Lactate Dehydrogenase Total Creatine Kinase CK-MB (CK-2) Rel Index Troponin T C-Reactive Protein Total Protein Albumin Prealbumin LDL Cholesterol Direct Arterial Blood Glucose Arterial Blood Ionized Calcium Urine WBC (Auto) 04/04/20 04/04/20 04/04/20 11:47 17:41 23:05 WBC RBC Hgb Hct MCV MCH RDW Plt Count Lymph % (Auto) Lymph # (Auto) [place] # (Auto) Seg Neutrophils % Seg Neuts % (Manual) Lymphocytes % (Manual) Monocytes % (Manual) Basophils % (Manual) Seg Neutrophils # Seg Neutrophils # Man Lymphocytes # (Manual) Monocytes # (Manual) Eosinophils # (Manual) Basophils # (Manual) PT INR D-Dimer ABG pH POC ABG pCO2 POC ABG pO2 ABG pO2 ABG HCO3 ABG O2 Saturation ABG Base Excess ABG Hemoglobin ABG Oxyhemoglobin ABG Potassium ABG Glucose Oxyhemoglobin Carboxyhemoglobin Sodium Potassium Chloride Carbon Dioxide BUN Creatinine Glucose POC Glucose 123 H 120 H 119 H Calcium Ferritin Total Bilirubin Alkaline Phosphatase Lactate Dehydrogenase Total Creatine Kinase CK-MB (CK-2) Rel Index Troponin T C-Reactive Protein Total Protein Albumin Prealbumin LDL Cholesterol Direct Arterial Blood Glucose Arterial Blood Ionized Calcium Urine WBC (Auto) 04/05/20 04/05/20 04/05/20 05:14 12:16 18:48 WBC RBC Hgb Hct MCV MCH RDW Plt Count Lymph % (Auto) Lymph # (Auto) [place] # (Auto) Seg Neutrophils % Seg Neuts % (Manual) Lymphocytes % (Manual) Monocytes % (Manual) Basophils % (Manual) Seg Neutrophils # Seg Neutrophils # Man Lymphocytes # (Manual) Monocytes # (Manual) Eosinophils # (Manual) Basophils # (Manual) PT INR D-Dimer ABG pH POC ABG pCO2 POC ABG pO2 ABG pO2 ABG HCO3 ABG O2 Saturation ABG Base Excess ABG Hemoglobin ABG Oxyhemoglobin ABG Potassium ABG Glucose Oxyhemoglobin Carboxyhemoglobin Sodium Potassium Chloride Carbon Dioxide BUN Creatinine Glucose POC Glucose 123 H 148 H 106 H Calcium Ferritin Total Bilirubin Alkaline Phosphatase Lactate Dehydrogenase Total Creatine Kinase CK-MB (CK-2) Rel Index Troponin T C-Reactive Protein Total Protein Albumin Prealbumin LDL Cholesterol Direct Arterial Blood Glucose Arterial Blood Ionized Calcium Urine WBC (Auto) 04/06/20 04/06/20 04/06/20 00:47 03:26 08:24 WBC RBC Hgb Hct MCV MCH RDW Plt Count Lymph % (Auto) Lymph # (Auto) [place] # (Auto) Seg Neutrophils % Seg Neuts % (Manual) Lymphocytes % (Manual) Monocytes % (Manual) Basophils % (Manual) Seg Neutrophils # Seg Neutrophils # Man Lymphocytes # (Manual) Monocytes # (Manual) Eosinophils # (Manual) Basophils # (Manual) PT INR D-Dimer ABG pH POC ABG pCO2 POC ABG pO2 ABG pO2 ABG HCO3 ABG O2 Saturation ABG Base Excess ABG Hemoglobin ABG Oxyhemoglobin ABG Potassium ABG Glucose Oxyhemoglobin Carboxyhemoglobin Sodium Potassium Chloride Carbon Dioxide BUN Creatinine Glucose POC Glucose 129 H 134 H 131 H Calcium Ferritin Total Bilirubin Alkaline Phosphatase Lactate Dehydrogenase Total Creatine Kinase CK-MB (CK-2) Rel Index Troponin T C-Reactive Protein Total Protein Albumin Prealbumin LDL Cholesterol Direct Arterial Blood Glucose Arterial Blood Ionized Calcium Urine WBC (Auto) 04/06/20 04/06/20 04/06/20 11:16 16:27 23:01 WBC RBC Hgb Hct MCV MCH RDW Plt Count Lymph % (Auto) Lymph # (Auto) [place] # (Auto) Seg Neutrophils % Seg Neuts % (Manual) Lymphocytes % (Manual) Monocytes % (Manual) Basophils % (Manual) Seg Neutrophils # Seg Neutrophils # Man Lymphocytes # (Manual) Monocytes # (Manual) Eosinophils # (Manual) Basophils # (Manual) PT INR D-Dimer ABG pH POC ABG pCO2 POC ABG pO2 ABG pO2 ABG HCO3 ABG O2 Saturation ABG Base Excess ABG Hemoglobin ABG Oxyhemoglobin ABG Potassium ABG Glucose Oxyhemoglobin Carboxyhemoglobin Sodium Potassium Chloride Carbon Dioxide BUN Creatinine Glucose POC Glucose 131 H 107 H 125 H Calcium Ferritin Total Bilirubin Alkaline Phosphatase Lactate Dehydrogenase Total Creatine Kinase CK-MB (CK-2) Rel Index Troponin T C-Reactive Protein Total Protein Albumin Prealbumin LDL Cholesterol Direct Arterial Blood Glucose Arterial Blood Ionized Calcium Urine WBC (Auto) 04/07/20 04/07/20 04/07/20 05:24 12:41 17:40 WBC RBC Hgb Hct MCV MCH RDW Plt Count Lymph % (Auto) Lymph # (Auto) [place] # (Auto) Seg Neutrophils % Seg Neuts % (Manual) Lymphocytes % (Manual) Monocytes % (Manual) Basophils % (Manual) Seg Neutrophils # Seg Neutrophils # Man Lymphocytes # (Manual) Monocytes # (Manual) Eosinophils # (Manual) Basophils # (Manual) PT INR D-Dimer ABG pH POC ABG pCO2 POC ABG pO2 ABG pO2 ABG HCO3 ABG O2 Saturation ABG Base Excess ABG Hemoglobin ABG Oxyhemoglobin ABG Potassium ABG Glucose Oxyhemoglobin Carboxyhemoglobin Sodium Potassium Chloride Carbon Dioxide BUN Creatinine Glucose POC Glucose 125 H 145 H 123 H Calcium Ferritin Total Bilirubin Alkaline Phosphatase Lactate Dehydrogenase Total Creatine Kinase CK-MB (CK-2) Rel Index Troponin T C-Reactive Protein Total Protein Albumin Prealbumin LDL Cholesterol Direct Arterial Blood Glucose Arterial Blood Ionized Calcium Urine WBC (Auto) 04/07/20 04/08/20 04/08/20 23:22 05:40 11:29 WBC RBC Hgb Hct MCV MCH RDW Plt Count Lymph % (Auto) Lymph # (Auto) [place] # (Auto) Seg Neutrophils % Seg Neuts % (Manual) Lymphocytes % (Manual) Monocytes % (Manual) Basophils % (Manual) Seg Neutrophils # Seg Neutrophils # Man Lymphocytes # (Manual) Monocytes # (Manual) Eosinophils # (Manual) Basophils # (Manual) PT INR D-Dimer ABG pH POC ABG pCO2 POC ABG pO2 ABG pO2 ABG HCO3 ABG O2 Saturation ABG Base Excess ABG Hemoglobin ABG Oxyhemoglobin ABG Potassium ABG Glucose Oxyhemoglobin Carboxyhemoglobin Sodium Potassium Chloride Carbon Dioxide BUN Creatinine Glucose POC Glucose 133 H 125 H 116 H Calcium Ferritin Total Bilirubin Alkaline Phosphatase Lactate Dehydrogenase Total Creatine Kinase CK-MB (CK-2) Rel Index Troponin T C-Reactive Protein Total Protein Albumin Prealbumin LDL Cholesterol Direct Arterial Blood Glucose Arterial Blood Ionized Calcium Urine WBC (Auto) 04/08/20 04/09/20 04/09/20 17:43 05:47 12:22 WBC RBC Hgb Hct MCV MCH RDW Plt Count Lymph % (Auto) Lymph # (Auto) [place] # (Auto) Seg Neutrophils % Seg Neuts % (Manual) Lymphocytes % (Manual) Monocytes % (Manual) Basophils % (Manual) Seg Neutrophils # Seg Neutrophils # Man Lymphocytes # (Manual) Monocytes # (Manual) Eosinophils # (Manual) Basophils # (Manual) PT INR D-Dimer ABG pH POC ABG pCO2 POC ABG pO2 ABG pO2 ABG HCO3 ABG O2 Saturation ABG Base Excess ABG Hemoglobin ABG Oxyhemoglobin ABG Potassium ABG Glucose Oxyhemoglobin Carboxyhemoglobin Sodium Potassium Chloride Carbon Dioxide BUN Creatinine Glucose POC Glucose 123 H 108 H 116 H Calcium Ferritin Total Bilirubin Alkaline Phosphatase Lactate Dehydrogenase Total Creatine Kinase CK-MB (CK-2) Rel Index Troponin T C-Reactive Protein Total Protein Albumin Prealbumin LDL Cholesterol Direct Arterial Blood Glucose Arterial Blood Ionized Calcium Urine WBC (Auto) 04/09/20 04/09/20 04/10/20 17:24 23:52 06:10 WBC RBC Hgb Hct MCV MCH RDW Plt Count Lymph % (Auto) Lymph # (Auto) [place] # (Auto) Seg Neutrophils % Seg Neuts % (Manual) Lymphocytes % (Manual) Monocytes % (Manual) Basophils % (Manual) Seg Neutrophils # Seg Neutrophils # Man Lymphocytes # (Manual) Monocytes # (Manual) Eosinophils # (Manual) Basophils # (Manual) PT INR D-Dimer ABG pH POC ABG pCO2 POC ABG pO2 ABG pO2 ABG HCO3 ABG O2 Saturation ABG Base Excess ABG Hemoglobin ABG Oxyhemoglobin ABG Potassium ABG Glucose Oxyhemoglobin Carboxyhemoglobin Sodium Potassium Chloride Carbon Dioxide BUN Creatinine Glucose POC Glucose 108 H 126 H 122 H Calcium Ferritin Total Bilirubin Alkaline Phosphatase Lactate Dehydrogenase Total Creatine Kinase CK-MB (CK-2) Rel Index Troponin T C-Reactive Protein Total Protein Albumin Prealbumin LDL Cholesterol Direct Arterial Blood Glucose Arterial Blood Ionized Calcium Urine WBC (Auto) 04/10/20 04/10/20 04/10/20 11:27 18:11 23:24 WBC RBC Hgb Hct MCV MCH RDW Plt Count Lymph % (Auto) Lymph # (Auto) [place] # (Auto) Seg Neutrophils % Seg Neuts % (Manual) Lymphocytes % (Manual) Monocytes % (Manual) Basophils % (Manual) Seg Neutrophils # Seg Neutrophils # Man Lymphocytes # (Manual) Monocytes # (Manual) Eosinophils # (Manual) Basophils # (Manual) PT INR D-Dimer ABG pH POC ABG pCO2 POC ABG pO2 ABG pO2 ABG HCO3 ABG O2 Saturation ABG Base Excess ABG Hemoglobin ABG Oxyhemoglobin ABG Potassium ABG Glucose Oxyhemoglobin Carboxyhemoglobin Sodium Potassium Chloride Carbon Dioxide BUN Creatinine Glucose POC Glucose 129 H 125 H 107 H Calcium Ferritin Total Bilirubin Alkaline Phosphatase Lactate Dehydrogenase Total Creatine Kinase CK-MB (CK-2) Rel Index Troponin T C-Reactive Protein Total Protein Albumin Prealbumin LDL Cholesterol Direct Arterial Blood Glucose Arterial Blood Ionized Calcium Urine WBC (Auto) 04/11/20 04/11/20 04/11/20 05:28 11:46 23:49 WBC RBC Hgb Hct MCV MCH RDW Plt Count Lymph % (Auto) Lymph # (Auto) [place] # (Auto) Seg Neutrophils % Seg Neuts % (Manual) Lymphocytes % (Manual) Monocytes % (Manual) Basophils % (Manual) Seg Neutrophils # Seg Neutrophils # Man Lymphocytes # (Manual) Monocytes # (Manual) Eosinophils # (Manual) Basophils # (Manual) PT INR D-Dimer ABG pH POC ABG pCO2 POC ABG pO2 ABG pO2 ABG HCO3 ABG O2 Saturation ABG Base Excess ABG Hemoglobin ABG Oxyhemoglobin ABG Potassium ABG Glucose Oxyhemoglobin Carboxyhemoglobin Sodium Potassium Chloride Carbon Dioxide BUN Creatinine Glucose POC Glucose 122 H 122 H 116 H Calcium Ferritin Total Bilirubin Alkaline Phosphatase Lactate Dehydrogenase Total Creatine Kinase CK-MB (CK-2) Rel Index Troponin T C-Reactive Protein Total Protein Albumin Prealbumin LDL Cholesterol Direct Arterial Blood Glucose Arterial Blood Ionized Calcium Urine WBC (Auto) 04/12/20 04/12/20 04/12/20 09:07 09:07 11:39 WBC 13.1 H RBC 3.59 L Hgb 9.5 L Hct 29.8 L MCV 83 L MCH 26 L RDW 16.6 H Plt Count 591 H Lymph % (Auto) Lymph # (Auto) [place] # (Auto) Seg Neutrophils % Seg Neuts % (Manual) 86.0 H Lymphocytes % (Manual) 7.0 L Monocytes % (Manual) Basophils % (Manual) Seg Neutrophils # Seg Neutrophils # Man 11.3 H Lymphocytes # (Manual) 0.9 L Monocytes # (Manual) Eosinophils # (Manual) Basophils # (Manual) PT INR D-Dimer ABG pH POC ABG pCO2 POC ABG pO2 ABG pO2 ABG HCO3 ABG O2 Saturation ABG Base Excess ABG Hemoglobin ABG Oxyhemoglobin ABG Potassium ABG Glucose Oxyhemoglobin Carboxyhemoglobin Sodium Potassium Chloride Carbon Dioxide 36 H BUN Creatinine < 0.2 L Glucose 132 H POC Glucose 136 H Calcium Ferritin Total Bilirubin Alkaline Phosphatase Lactate Dehydrogenase Total Creatine Kinase CK-MB (CK-2) Rel Index Troponin T C-Reactive Protein Total Protein Albumin 2.7 L Prealbumin LDL Cholesterol Direct Arterial Blood Glucose Arterial Blood Ionized Calcium Urine WBC (Auto) 04/12/20 04/12/20 04/13/20 18:13 23:07 05:45 WBC RBC Hgb Hct MCV MCH RDW Plt Count Lymph % (Auto) Lymph # (Auto) [place] # (Auto) Seg Neutrophils % Seg Neuts % (Manual) Lymphocytes % (Manual) Monocytes % (Manual) Basophils % (Manual) Seg Neutrophils # Seg Neutrophils # Man Lymphocytes # (Manual) Monocytes # (Manual) Eosinophils # (Manual) Basophils # (Manual) PT INR D-Dimer ABG pH POC ABG pCO2 POC ABG pO2 ABG pO2 ABG HCO3 ABG O2 Saturation ABG Base Excess ABG Hemoglobin ABG Oxyhemoglobin ABG Potassium ABG Glucose Oxyhemoglobin Carboxyhemoglobin Sodium Potassium Chloride Carbon Dioxide BUN Creatinine Glucose POC Glucose 107 H 106 H 125 H Calcium Ferritin Total Bilirubin Alkaline Phosphatase Lactate Dehydrogenase Total Creatine Kinase CK-MB (CK-2) Rel Index Troponin T C-Reactive Protein Total Protein Albumin Prealbumin LDL Cholesterol Direct Arterial Blood Glucose Arterial Blood Ionized Calcium Urine WBC (Auto) 04/13/20 04/13/20 04/13/20 11:18 17:56 23:33 WBC RBC Hgb Hct MCV MCH RDW Plt Count Lymph % (Auto) Lymph # (Auto) [place] # (Auto) Seg Neutrophils % Seg Neuts % (Manual) Lymphocytes % (Manual) Monocytes % (Manual) Basophils % (Manual) Seg Neutrophils # Seg Neutrophils # Man Lymphocytes # (Manual) Monocytes # (Manual) Eosinophils # (Manual) Basophils # (Manual) PT INR D-Dimer ABG pH POC ABG pCO2 POC ABG pO2 ABG pO2 ABG HCO3 ABG O2 Saturation ABG Base Excess ABG Hemoglobin ABG Oxyhemoglobin ABG Potassium ABG Glucose Oxyhemoglobin Carboxyhemoglobin Sodium Potassium Chloride Carbon Dioxide BUN Creatinine Glucose POC Glucose 133 H 110 H 114 H Calcium Ferritin Total Bilirubin Alkaline Phosphatase Lactate Dehydrogenase Total Creatine Kinase CK-MB (CK-2) Rel Index Troponin T C-Reactive Protein Total Protein Albumin Prealbumin LDL Cholesterol Direct Arterial Blood Glucose Arterial Blood Ionized Calcium Urine WBC (Auto) 04/14/20 04/14/20 04/14/20 05:58 11:45 17:48 WBC RBC Hgb Hct MCV MCH RDW Plt Count Lymph % (Auto) Lymph # (Auto) [place] # (Auto) Seg Neutrophils % Seg Neuts % (Manual) Lymphocytes % (Manual) Monocytes % (Manual) Basophils % (Manual) Seg Neutrophils # Seg Neutrophils # Man Lymphocytes # (Manual) Monocytes # (Manual) Eosinophils # (Manual) Basophils # (Manual) PT INR D-Dimer ABG pH POC ABG pCO2 POC ABG pO2 ABG pO2 ABG HCO3 ABG O2 Saturation ABG Base Excess ABG Hemoglobin ABG Oxyhemoglobin ABG Potassium ABG Glucose Oxyhemoglobin Carboxyhemoglobin Sodium Potassium Chloride Carbon Dioxide BUN Creatinine Glucose POC Glucose 115 H 122 H 124 H Calcium Ferritin Total Bilirubin Alkaline Phosphatase Lactate Dehydrogenase Total Creatine Kinase CK-MB (CK-2) Rel Index Troponin T C-Reactive Protein Total Protein Albumin Prealbumin LDL Cholesterol Direct Arterial Blood Glucose Arterial Blood Ionized Calcium Urine WBC (Auto) 04/15/20 04/15/20 04/15/20 00:11 05:38 11:31 WBC RBC Hgb Hct MCV MCH RDW Plt Count Lymph % (Auto) Lymph # (Auto) [place] # (Auto) Seg Neutrophils % Seg Neuts % (Manual) Lymphocytes % (Manual) Monocytes % (Manual) Basophils % (Manual) Seg Neutrophils # Seg Neutrophils # Man Lymphocytes # (Manual) Monocytes # (Manual) Eosinophils # (Manual) Basophils # (Manual) PT INR D-Dimer ABG pH POC ABG pCO2 POC ABG pO2 ABG pO2 ABG HCO3 ABG O2 Saturation ABG Base Excess ABG Hemoglobin ABG Oxyhemoglobin ABG Potassium ABG Glucose Oxyhemoglobin Carboxyhemoglobin Sodium Potassium Chloride Carbon Dioxide BUN Creatinine Glucose POC Glucose 120 H 109 H 123 H Calcium Ferritin Total Bilirubin Alkaline Phosphatase Lactate Dehydrogenase Total Creatine Kinase CK-MB (CK-2) Rel Index Troponin T C-Reactive Protein Total Protein Albumin Prealbumin LDL Cholesterol Direct Arterial Blood Glucose Arterial Blood Ionized Calcium Urine WBC (Auto) 04/15/20 04/16/20 04/16/20 17:35 06:00 11:29 WBC RBC Hgb Hct MCV MCH RDW Plt Count Lymph % (Auto) Lymph # (Auto) [place] # (Auto) Seg Neutrophils % Seg Neuts % (Manual) Lymphocytes % (Manual) Monocytes % (Manual) Basophils % (Manual) Seg Neutrophils # Seg Neutrophils # Man Lymphocytes # (Manual) Monocytes # (Manual) Eosinophils # (Manual) Basophils # (Manual) PT INR D-Dimer ABG pH POC ABG pCO2 POC ABG pO2 ABG pO2 ABG HCO3 ABG O2 Saturation ABG Base Excess ABG Hemoglobin ABG Oxyhemoglobin ABG Potassium ABG Glucose Oxyhemoglobin Carboxyhemoglobin Sodium Potassium Chloride Carbon Dioxide BUN Creatinine Glucose POC Glucose 111 H 142 H 108 H Calcium Ferritin Total Bilirubin Alkaline Phosphatase Lactate Dehydrogenase Total Creatine Kinase CK-MB (CK-2) Rel Index Troponin T C-Reactive Protein Total Protein Albumin Prealbumin LDL Cholesterol Direct Arterial Blood Glucose Arterial Blood Ionized Calcium Urine WBC (Auto) 04/17/20 04/17/20 04/17/20 05:09 06:53 06:53 WBC 14.2 H RBC Hgb 10.1 L Hct 31.5 L MCV MCH 27 L RDW 17.2 H Plt Count 643 H Lymph % (Auto) Lymph # (Auto) [place] # (Auto) Seg Neutrophils % Seg Neuts % (Manual) Lymphocytes % (Manual) Monocytes % (Manual) Basophils % (Manual) Seg Neutrophils # Seg Neutrophils # Man Lymphocytes # (Manual) Monocytes # (Manual) Eosinophils # (Manual) Basophils # (Manual) PT INR D-Dimer ABG pH POC ABG pCO2 POC ABG pO2 ABG pO2 ABG HCO3 ABG O2 Saturation ABG Base Excess ABG Hemoglobin ABG Oxyhemoglobin ABG Potassium ABG Glucose Oxyhemoglobin Carboxyhemoglobin Sodium Potassium Chloride 97.7 L Carbon Dioxide 38 H BUN Creatinine < 0.2 L Glucose 126 H POC Glucose 131 H Calcium Ferritin Total Bilirubin Alkaline Phosphatase Lactate Dehydrogenase Total Creatine Kinase CK-MB (CK-2) Rel Index Troponin T C-Reactive Protein Total Protein Albumin Prealbumin LDL Cholesterol Direct Arterial Blood Glucose Arterial Blood Ionized Calcium Urine WBC (Auto) 04/17/20 11:21 WBC RBC Hgb Hct MCV MCH RDW Plt Count Lymph % (Auto) Lymph # (Auto) [place] # (Auto) Seg Neutrophils % Seg Neuts % (Manual) Lymphocytes % (Manual) Monocytes % (Manual) Basophils % (Manual) Seg Neutrophils # Seg Neutrophils # Man Lymphocytes # (Manual) Monocytes # (Manual) Eosinophils # (Manual) Basophils # (Manual) PT INR D-Dimer ABG pH POC ABG pCO2 POC ABG pO2 ABG pO2 ABG HCO3 ABG O2 Saturation ABG Base Excess ABG Hemoglobin ABG Oxyhemoglobin ABG Potassium ABG Glucose Oxyhemoglobin Carboxyhemoglobin Sodium Potassium Chloride Carbon Dioxide BUN Creatinine Glucose POC Glucose 140 H Calcium Ferritin Total Bilirubin Alkaline Phosphatase Lactate Dehydrogenase Total Creatine Kinase CK-MB (CK-2) Rel Index Troponin T C-Reactive Protein Total Protein Albumin Prealbumin LDL Cholesterol Direct Arterial Blood Glucose Arterial Blood Ionized Calcium Urine WBC (Auto) Chest x-ray: report reviewed, image reviewed Additional Studies: CHEST 1 VIEW 04/15/2020 7:39 AM INDICATION / CLINICAL INFORMATION: F/U[respiratory failure/tracheostomy/on vent]. COMPARISON: 03/28/2020 FINDINGS: SUPPORT DEVICES: Tracheostomy tube appears unchanged HEART / MEDIASTINUM: Unchanged LUNGS / PLEURA: There are mild basilar airspace opacities. No pneumothorax. ADDITIONAL FINDINGS: No significant additional findings. IMPRESSION: 1. There are mild basilar airspace opacities which likely represent atelectasis but could represent an evolving pneumonia. Allied health notes reviewed: RT
[2020-04-17] MEDS: ENOXAPARIN 40 MG/0.4 ML INJ SUB-Q SCH (21:55)
[2020-04-17] MEDS: SENNOSIDES 8.6 MG TAB PO SCH (21:59)
[2020-04-17] MEDS: ZOLPIDEM 5 MG TAB PO PRN (21:59)
[2020-04-18 05:40] LABS: Hematocrit 31.9 % (35.5-45.6); Hemoglobin 10.1 gm/dl (11.8-15.2); Mean Corpuscular HGB Conc 32 % (32-34); Mean Corpuscular Volume 82 fl (84-94); Platelet Count 665 K/mm3 (140-440); Red Blood Count 3.91 M/mm3 (3.65-5.03); Red Cell Distribution Width 17.2 % (13.2-15.2)
[2020-04-18 05:46] LABS: Basophils # (Auto) 0.1 K/mm3 (0.0-0.1); Basophils % (Auto) 0.7 % (0.0-1.8); Eosinophils # (Auto) 0.2 K/mm3 (0.0-0.4); Eosinophils % (Auto) 1.4 % (0.0-4.3); Lymphocytes % (Auto) 12.9 % (13.4-35.0); Monocytes # (Auto) 1.1 K/mm3 (0.0-0.8)
[2020-04-18 05:53] LABS: Blood Urea Nitrogen 16 mg/dL (9-20); Calcium 8.9 mg/dL (8.4-10.2); Hemolysis Index 0
[2020-04-18 05:55] LABS: BUN/Creatinine Ratio 80
[2020-04-18] MEDS: TAMSULOSIN 0.4 MG CAP PO SCH (09:40)
[2020-04-18] MEDS: ALPRAZolam 0.5 MG TAB PO PRN ×2 (09:40→23:40)
[2020-04-18] MEDS: MAGIC MOUTHWASH 30ML PO SCH ×3 (09:40→21:09)
[2020-04-18] MEDS: LANSOPRAZOLE 30 MG SOLUTAB FEEDTUBE SCH (09:40)
[2020-04-18] MEDS: LIDOCAINE 5% 1 EACH PATCH TD SCH (09:40)
[2020-04-18] MEDS: DOCUSATE SODIUM 100 MG/10 ML ORAL LIQD FEEDTUBE SCH ×2 (09:40→21:10)
[2020-04-18] MEDS: MORPHINE 2 MG/1 ML INJ IV PRN ×3 (09:40→21:03)
[2020-04-18] MEDS: GLYCOPYRROLATE 1 MG TAB PO SCH ×3 (09:40→21:10)
[2020-04-18] MEDS: BACLOFEN 10 MG TAB PO SCH ×2 (09:41→21:11)
[2020-04-18] MEDS: METOPROLOL TARTRATE 25 MG TAB PO SCH ×2 (09:42→21:12)
[2020-04-18] MEDS: SODIUM HYPOCHLORITE, DAKIN'S 1/2 STRENGTH (0.25%) 473 ML TOPICAL SOLN TP SCH ×2 (09:43→21:11)
[2020-04-18] MEDS: PREGABALIN 75 MG CAP PO SCH ×2 (09:46→21:13)
--- NOTE | 2020-04-18 10:05 | Progress Note ---
Assessment and Plan Patient awake. Resting on assist control mechanical ventilation, rate 10, Tidal volume 400, FIO2 30%, PEEP 6 and O2 saturation running 99%. Continue spontaneous breathing trials as tolerated.Patient afebrile to day and has leukocytosis. Chest xray done 04/15/20 reported mild basilar airspace opacities which likely represent atelectasis but could represent an evolving pneumonia. If patient running fever, recommend to place hin on antibiotics like zosyn. I spent critical care time of 35 minutes, review the chart, examining the pa tient,Review chest xray, labs, talking to the nursing staff and respiratory therapist and work out plan of tratment in this critically ill patient. - Patient Problems (1) Acute on chronic respiratory failure with hypoxia and hypercapnia Current Visit: Yes Status: Acute Plan to address problem: Patient is on assist control mechanical ventilation, rate 10, tidal volume 400, FIO2 30%, PEEP 6. Albuterol inhaler 2 puffs po qid. Continue S/C Lovenox. Continue prevacid. Recommend to continue spontaneous breathing trials. (2) Bleeding from wound Current Visit: Yes Status: Acute Plan to address problem: Management primary care , surgery and wound care. (3) Elevated d-dimer Current Visit: Yes Status: Acute Plan to address problem: Patients venous doppler studies of legs, CTA chest reported Negative for VTE. Patient is on S/C Lovenox 40 mg qd. (4) Elevated troponin Current Visit: Yes Status: Acute Plan to address problem: Management as per primary care and cardiology (5) NSTEMI (non-ST elevated myocardial infarction) Current Visit: Yes Status: Acute Plan to address problem: Management as per cardiology. (6) Pneumonia Current Visit: Yes Status: Acute Qualifiers: Laterality: bilateral Plan to address problem: Patient was treated with ceftriaxone, zosyn and zithromax. Patient Running low grade temp. Has leukocytosis. Chest xray done 04/15/20 reported mild basilar airspace opacities which likely represent atelectasis but could represent an evolving pneumonia. If patient running fever, recommend to place him back on antibiotics like zosyn. Subjective Date of service: 04/18/20 Principal diagnosis: Ac on Ch Hypercapnic & hypoxemic Resp Failure; Severe Sepsis; Jamar PNA; ALS Interval history: Patient awake. Resting on assist control mechanical ventilation, rate 10, Tidal volume 400, FIO2 30%, PEEP 6 and O2 saturation running 99%. Continue spontaneous breathing trials as tolerated.Patient afebrile to day and has leukocytosis. Chest xray done 04/15/20 reported mild basilar airspace opacities which likely represent atelectasis but could represent an evolving pneumonia. If patient running fever, recommend to place hin on antibiotics like zosyn. Objective Vital Signs - 12hr 04/17/20 04/17/20 04/17/20 22:54 23:00 23:34 Temperature Pulse Rate 125 H 122 H Pulse Rate [ From Monitor] Respiratory 20 19 Rate Blood Pressure 97/70 97/70 O2 Sat by Pulse 97 97 Oximetry 04/18/20 04/18/20 04/18/20 00:00 01:00 02:00 Temperature 97.3 F L Pulse Rate 126 H 118 H 120 H Pulse Rate [ 122 H From Monitor] Respiratory 19 15 18 Rate Blood Pressure 114/80 113/75 110/74 O2 Sat by Pulse 98 97 Oximetry 04/18/20 04/18/20 04/18/20 03:00 03:55 04:00 Temperature 97.6 F Pulse Rate 104 H 107 H Pulse Rate [ 118 H From Monitor] Respiratory 10 L 12 Rate Blood Pressure 106/70 111/75 O2 Sat by Pulse 98 Oximetry 04/18/20 04/18/20 04/18/20 04:52 05:00 06:00 Temperature Pulse Rate 117 H 112 H 100 H Pulse Rate [ From Monitor] Respiratory 19 11 L Rate Blood Pressure 111/75 120/79 102/72 O2 Sat by Pulse 98 97 98 Oximetry 04/18/20 04/18/20 04/18/20 07:51 08:00 09:42 Temperature 97.8 F Pulse Rate 101 H 114 H Pulse Rate [ From Monitor] Respiratory Rate Blood Pressure 107/75 107/68 O2 Sat by Pulse 99 Oximetry Constitutional: no acute distress, alert, other (thin middle aged male with normal respiratory effort at rest on MVS) Eyes: non-icteric ENT: oropharynx moist, other (S/P Tracheostomy) Neck: supple, no lymphadenopathy, no JVD Effort: mildly labored Ascultation: Bilateral: diminished breath sounds, wheezes, rhonchi Percussion: Bilateral: not dull Cardiovascular: regular rate and rhythm, other (S1,S2, no murmurs) Gastrointestinal: normoactive bowel sounds, soft, non-tender, non-distended, other (+ distended but non tender suprapubis) Integumentary: normal, decubitus ulcer (sacral / gluteal) Extremities: no cyanosis, no edema, pulses normal, other (atrophic looking limbs) Neurologic: pupils equal and round, other (motor strength in extremities 1-2/5, awake, alert, mouths words to make needs known) Psychiatric: depressed CBC and BMP: 04/18/20 04:01 04/18/20 04:01 ABG, PT/INR, D-dimer: ABG ABG pH 7.371 (7.320-7.450) 03/08/20 12:34 POC ABG pCO2 63.1 mmHg (32.0-48.0) H 03/08/20 12:34 ABG pCO2 60.1 mm Hg 03/06/20 04:34 POC ABG pO2 90.5 mmHg (83-108) 03/08/20 12:34 ABG pO2 88.6 mm Hg (80.0-90.0) 03/06/20 04:34 POC ABG HCO3 35.7 03/08/20 12:34 ABG O2 Saturation 97.0 % (95.0-99.0) 03/06/20 04:34 PT/INR, D-dimer PT 15.6 Sec. (12.2-14.9) H 02/24/20 09:19 INR 1.21 (0.87-1.13) H 02/24/20 09:19 D-Dimer 1311.96 ng/mlDDU (0-234) H 02/24/20 09:19 Abnormal lab findings: Abnormal Labs 02/24/20 02/24/20 02/24/20 09:19 09:19 09:19 WBC 20.2 H RBC 5.05 H Hgb Hct MCV MCH RDW 15.3 H Plt Count Lymph % (Auto) Lymph # (Auto) [place] # (Auto) Seg Neutrophils % Seg Neuts % (Manual) 86.0 H Lymphocytes % (Manual) 1.0 L Monocytes % (Manual) Basophils % (Manual) Seg Neutrophils # Seg Neutrophils # Man 17.4 H Lymphocytes # (Manual) 0.2 L Monocytes # (Manual) Eosinophils # (Manual) Basophils # (Manual) PT 15.6 H INR 1.21 H D-Dimer 1311.96 H ABG pH POC ABG pCO2 POC ABG pO2 ABG pO2 ABG HCO3 ABG O2 Saturation ABG Base Excess ABG Hemoglobin ABG Oxyhemoglobin ABG Potassium ABG Glucose Oxyhemoglobin Carboxyhemoglobin Sodium 135 L Potassium 3.2 L Chloride 92.2 L Carbon Dioxide BUN 6 L Creatinine < 0.2 L Glucose 124 H POC Glucose Calcium Ferritin Total Bilirubin 2.30 H Alkaline Phosphatase 132 H Lactate Dehydrogenase Total Creatine Kinase CK-MB (CK-2) Rel Index Troponin T 0.080 H C-Reactive Protein Total Protein Albumin 3.6 L Prealbumin LDL Cholesterol Direct 41 L Arterial Blood Glucose Arterial Blood Ionized Calcium Urine WBC (Auto) 02/24/20 02/24/20 02/24/20 09:19 09:58 10:01 WBC RBC Hgb Hct MCV MCH RDW Plt Count Lymph % (Auto) Lymph # (Auto) [place] # (Auto) Seg Neutrophils % Seg Neuts % (Manual) Lymphocytes % (Manual) Monocytes % (Manual) Basophils % (Manual) Seg Neutrophils # Seg Neutrophils # Man Lymphocytes # (Manual) Monocytes # (Manual) Eosinophils # (Manual) Basophils # (Manual) PT INR D-Dimer ABG pH 7.176 L* POC ABG pCO2 POC ABG pO2 ABG pO2 91.2 H ABG HCO3 ABG O2 Saturation ABG Base Excess -4.6 L ABG Hemoglobin ABG Oxyhemoglobin ABG Potassium ABG Glucose Oxyhemoglobin 92.6 L Carboxyhemoglobin Sodium Potassium Chloride Carbon Dioxide BUN Creatinine Glucose POC Glucose Calcium Ferritin 1715.0 H Total Bilirubin Alkaline Phosphatase Lactate Dehydrogenase 303 H Total Creatine Kinase CK-MB (CK-2) Rel Index Troponin T C-Reactive Protein 26.10 H Total Protein Albumin Prealbumin LDL Cholesterol Direct Arterial Blood Glucose Arterial Blood Ionized Calcium Urine WBC (Auto) 02/24/20 02/24/20 02/24/20 11:52 13:45 19:35 WBC RBC Hgb Hct MCV MCH RDW Plt Count Lymph % (Auto) Lymph # (Auto) [place] # (Auto) Seg Neutrophils % Seg Neuts % (Manual) Lymphocytes % (Manual) Monocytes % (Manual) Basophils % (Manual) Seg Neutrophils # Seg Neutrophils # Man Lymphocytes # (Manual) Monocytes # (Manual) Eosinophils # (Manual) Basophils # (Manual) PT INR D-Dimer ABG pH 7.051 L* 7.300 L POC ABG pCO2 POC ABG pO2 ABG pO2 94.7 H 75.1 L ABG HCO3 18.0 L ABG O2 Saturation 93.5 L ABG Base Excess -6.8 L -7.8 L ABG Hemoglobin 13.2 L 11.9 L ABG Oxyhemoglobin ABG Potassium ABG Glucose Oxyhemoglobin 91.0 L 92.7 L Carboxyhemoglobin Sodium Potassium Chloride Carbon Dioxide BUN Creatinine Glucose POC Glucose Calcium Ferritin Total Bilirubin Alkaline Phosphatase Lactate Dehydrogenase Total Creatine Kinase CK-MB (CK-2) Rel Index Troponin T 0.034 H D C-Reactive Protein Total Protein Albumin Prealbumin LDL Cholesterol Direct Arterial Blood Glucose Arterial Blood Ionized Calcium Urine WBC (Auto) 02/25/20 02/25/20 02/25/20 04:00 04:00 12:26 WBC 22.9 H RBC Hgb Hct MCV 83 L MCH 27 L RDW Plt Count 468 H Lymph % (Auto) Lymph # (Auto) [place] # (Auto) Seg Neutrophils % Seg Neuts % (Manual) 89.0 H Lymphocytes % (Manual) 7.0 L Monocytes % (Manual) Basophils % (Manual) Seg Neutrophils # Seg Neutrophils # Man 20.4 H Lymphocytes # (Manual) Monocytes # (Manual) Eosinophils # (Manual) Basophils # (Manual) PT INR D-Dimer ABG pH POC ABG pCO2 POC ABG pO2 ABG pO2 ABG HCO3 ABG O2 Saturation ABG Base Excess ABG Hemoglobin ABG Oxyhemoglobin ABG Potassium 2.6 L ABG Glucose 142 H Oxyhemoglobin Carboxyhemoglobin Sodium Potassium 3.2 L Chloride Carbon Dioxide 18 L BUN Creatinine 0.2 L Glucose 114 H POC Glucose Calcium Ferritin Total Bilirubin Alkaline Phosphatase Lactate Dehydrogenase Total Creatine Kinase CK-MB (CK-2) Rel Index Troponin T C-Reactive Protein Total Protein Albumin 3.5 L Prealbumin LDL Cholesterol Direct Arterial Blood Glucose 142 H Arterial Blood Ionized Calcium Urine WBC (Auto) 02/26/20 02/26/20 02/26/20 15:58 17:00 23:43 WBC RBC Hgb Hct MCV MCH RDW Plt Count Lymph % (Auto) Lymph # (Auto) [place] # (Auto) Seg Neutrophils % Seg Neuts % (Manual) Lymphocytes % (Manual) Monocytes % (Manual) Basophils % (Manual) Seg Neutrophils # Seg Neutrophils # Man Lymphocytes # (Manual) Monocytes # (Manual) Eosinophils # (Manual) Basophils # (Manual) PT INR D-Dimer ABG pH 7.502 H POC ABG pCO2 POC ABG pO2 213.6 H ABG pO2 ABG HCO3 ABG O2 Saturation ABG Base Excess ABG Hemoglobin ABG Oxyhemoglobin 99.2 H ABG Potassium 2.9 L ABG Glucose 160 H Oxyhemoglobin Carboxyhemoglobin 0.4 L Sodium Potassium Chloride Carbon Dioxide BUN Creatinine Glucose POC Glucose 189 H 120 H Calcium Ferritin Total Bilirubin Alkaline Phosphatase Lactate Dehydrogenase Total Creatine Kinase CK-MB (CK-2) Rel Index Troponin T C-Reactive Protein Total Protein Albumin Prealbumin LDL Cholesterol Direct Arterial Blood Glucose 160 H Arterial Blood Ionized Calcium 4.5 L Urine WBC (Auto) 02/27/20 02/27/20 02/27/20 05:00 07:04 17:45 WBC RBC Hgb Hct MCV MCH RDW Plt Count Lymph % (Auto) Lymph # (Auto) [place] # (Auto) Seg Neutrophils % Seg Neuts % (Manual) Lymphocytes % (Manual) Monocytes % (Manual) Basophils % (Manual) Seg Neutrophils # Seg Neutrophils # Man Lymphocytes # (Manual) Monocytes # (Manual) Eosinophils # (Manual) Basophils # (Manual) PT INR D-Dimer ABG pH 7.524 H POC ABG pCO2 POC ABG pO2 ABG pO2 ABG HCO3 ABG O2 Saturation ABG Base Excess ABG Hemoglobin ABG Oxyhemoglobin ABG Potassium 3.0 L ABG Glucose 143 H Oxyhemoglobin Carboxyhemoglobin Sodium Potassium Chloride Carbon Dioxide BUN Creatinine Glucose POC Glucose 154 H 175 H Calcium Ferritin Total Bilirubin Alkaline Phosphatase Lactate Dehydrogenase Total Creatine Kinase CK-MB (CK-2) Rel Index Troponin T C-Reactive Protein Total Protein Albumin Prealbumin LDL Cholesterol Direct Arterial Blood Glucose 143 H Arterial Blood Ionized Calcium Urine WBC (Auto) 02/27/20 02/28/20 02/28/20 Unknown 00:21 04:15 WBC 18.7 H RBC Hgb Hct MCV MCH RDW Plt Count Lymph % (Auto) 8.7 L Lymph # (Auto) [place] # (Auto) 1.2 H Seg Neutrophils % 84.6 H Seg Neuts % (Manual) Lymphocytes % (Manual) Monocytes % (Manual) Basophils % (Manual) Seg Neutrophils # 15.9 H Seg Neutrophils # Man Lymphocytes # (Manual) Monocytes # (Manual) Eosinophils # (Manual) Basophils # (Manual) PT INR D-Dimer ABG pH POC ABG pCO2 POC ABG pO2 ABG pO2 ABG HCO3 ABG O2 Saturation ABG Base Excess ABG Hemoglobin ABG Oxyhemoglobin ABG Potassium ABG Glucose Oxyhemoglobin Carboxyhemoglobin Sodium Potassium 2.9 L* Chloride Carbon Dioxide 33 H D BUN Creatinine < 0.2 L Glucose 157 H POC Glucose 134 H Calcium Ferritin Total Bilirubin Alkaline Phosphatase Lactate Dehydrogenase Total Creatine Kinase CK-MB (CK-2) Rel Index Troponin T C-Reactive Protein Total Protein Albumin Prealbumin LDL Cholesterol Direct Arterial Blood Glucose Arterial Blood Ionized Calcium Urine WBC (Auto) 02/28/20 02/28/20 02/28/20 04:15 05:16 05:39 WBC RBC Hgb Hct MCV MCH RDW Plt Count Lymph % (Auto) Lymph # (Auto) [place] # (Auto) Seg Neutrophils % Seg Neuts % (Manual) Lymphocytes % (Manual) Monocytes % (Manual) Basophils % (Manual) Seg Neutrophils # Seg Neutrophils # Man Lymphocytes # (Manual) Monocytes # (Manual) Eosinophils # (Manual) Basophils # (Manual) PT INR D-Dimer ABG pH POC ABG pCO2 POC ABG pO2 ABG pO2 142.9 H ABG HCO3 34.1 H ABG O2 Saturation ABG Base Excess 8.3 H ABG Hemoglobin ABG Oxyhemoglobin ABG Potassium ABG Glucose Oxyhemoglobin Carboxyhemoglobin Sodium 151 H Potassium Chloride Carbon Dioxide 32 H BUN Creatinine 0.2 L Glucose 167 H POC Glucose 138 H Calcium Ferritin Total Bilirubin Alkaline Phosphatase Lactate Dehydrogenase Total Creatine Kinase CK-MB (CK-2) Rel Index Troponin T C-Reactive Protein Total Protein Albumin Prealbumin LDL Cholesterol Direct Arterial Blood Glucose Arterial Blood Ionized Calcium Urine WBC (Auto) 02/28/20 02/28/20 02/28/20 11:05 11:33 12:54 WBC RBC Hgb Hct MCV MCH RDW Plt Count Lymph % (Auto) Lymph # (Auto) [place] # (Auto) Seg Neutrophils % Seg Neuts % (Manual) Lymphocytes % (Manual) Monocytes % (Manual) Basophils % (Manual) Seg Neutrophils # Seg Neutrophils # Man Lymphocytes # (Manual) Monocytes # (Manual) Eosinophils # (Manual) Basophils # (Manual) PT INR D-Dimer ABG pH POC ABG pCO2 POC ABG pO2 ABG pO2 ABG HCO3 ABG O2 Saturation ABG Base Excess ABG Hemoglobin ABG Oxyhemoglobin ABG Potassium ABG Glucose Oxyhemoglobin Carboxyhemoglobin Sodium Potassium Chloride Carbon Dioxide BUN Creatinine Glucose POC Glucose 160 H Calcium Ferritin Total Bilirubin Alkaline Phosphatase Lactate Dehydrogenase Total Creatine Kinase CK-MB (CK-2) Rel Index Troponin T C-Reactive Protein 4.70 H Total Protein Albumin Prealbumin 0.090 L LDL Cholesterol Direct Arterial Blood Glucose Arterial Blood Ionized Calcium Urine WBC (Auto) 02/28/20 02/29/20 02/29/20 17:34 00:44 04:05 WBC 19.6 H RBC Hgb Hct MCV MCH 27 L RDW 15.4 H Plt Count Lymph % (Auto) Lymph # (Auto) [place] # (Auto) Seg Neutrophils % Seg Neuts % (Manual) 86.0 H Lymphocytes % (Manual) 7.0 L Monocytes % (Manual) Basophils % (Manual) Seg Neutrophils # Seg Neutrophils # Man 16.9 H Lymphocytes # (Manual) Monocytes # (Manual) 1.2 H Eosinophils # (Manual) Basophils # (Manual) PT INR D-Dimer ABG pH POC ABG pCO2 POC ABG pO2 ABG pO2 ABG HCO3 ABG O2 Saturation ABG Base Excess ABG Hemoglobin ABG Oxyhemoglobin ABG Potassium ABG Glucose Oxyhemoglobin Carboxyhemoglobin Sodium Potassium Chloride Carbon Dioxide BUN Creatinine Glucose POC Glucose 136 H 156 H Calcium Ferritin Total Bilirubin Alkaline Phosphatase Lactate Dehydrogenase Total Creatine Kinase CK-MB (CK-2) Rel Index Troponin T C-Reactive Protein Total Protein Albumin Prealbumin LDL Cholesterol Direct Arterial Blood Glucose Arterial Blood Ionized Calcium Urine WBC (Auto) 02/29/20 02/29/20 02/29/20 04:05 05:14 05:33 WBC RBC Hgb Hct MCV MCH RDW Plt Count Lymph % (Auto) Lymph # (Auto) [place] # (Auto) Seg Neutrophils % Seg Neuts % (Manual) Lymphocytes % (Manual) Monocytes % (Manual) Basophils % (Manual) Seg Neutrophils # Seg Neutrophils # Man Lymphocytes # (Manual) Monocytes # (Manual) Eosinophils # (Manual) Basophils # (Manual) PT INR D-Dimer ABG pH POC ABG pCO2 54.3 H POC ABG pO2 124.8 H ABG pO2 ABG HCO3 ABG O2 Saturation ABG Base Excess ABG Hemoglobin ABG Oxyhemoglobin ABG Potassium ABG Glucose 185 H Oxyhemoglobin Carboxyhemoglobin Sodium 148 H Potassium Chloride Carbon Dioxide 33 H BUN Creatinine < 0.2 L Glucose 173 H POC Glucose 152 H Calcium Ferritin Total Bilirubin Alkaline Phosphatase Lactate Dehydrogenase Total Creatine Kinase CK-MB (CK-2) Rel Index Troponin T C-Reactive Protein Total Protein Albumin Prealbumin LDL Cholesterol Direct Arterial Blood Glucose 185 H Arterial Blood Ionized Calcium Urine WBC (Auto) 03/01/20 03/01/20 03/01/20 00:00 03:45 04:33 WBC 23.1 H RBC Hgb Hct MCV MCH 27 L RDW 15.3 H Plt Count Lymph % (Auto) Lymph # (Auto) [place] # (Auto) Seg Neutrophils % Seg Neuts % (Manual) 92.0 H Lymphocytes % (Manual) 6.0 L Monocytes % (Manual) Basophils % (Manual) Seg Neutrophils # Seg Neutrophils # Man 21.3 H Lymphocytes # (Manual) Monocytes # (Manual) Eosinophils # (Manual) 0.5 H Basophils # (Manual) PT INR D-Dimer ABG pH 7.492 H POC ABG pCO2 POC ABG pO2 ABG pO2 157.1 H ABG HCO3 32.3 H ABG O2 Saturation ABG Base Excess 8.1 H ABG Hemoglobin 13.2 L ABG Oxyhemoglobin ABG Potassium ABG Glucose Oxyhemoglobin Carboxyhemoglobin Sodium Potassium Chloride Carbon Dioxide BUN Creatinine Glucose POC Glucose 109 H Calcium Ferritin Total Bilirubin Alkaline Phosphatase Lactate Dehydrogenase Total Creatine Kinase CK-MB (CK-2) Rel Index Troponin T C-Reactive Protein Total Protein Albumin Prealbumin LDL Cholesterol Direct Arterial Blood Glucose Arterial Blood Ionized Calcium Urine WBC (Auto) 03/01/20 03/01/20 03/01/20 04:33 05:29 12:32 WBC RBC Hgb Hct MCV MCH RDW Plt Count Lymph % (Auto) Lymph # (Auto) [place] # (Auto) Seg Neutrophils % Seg Neuts % (Manual) Lymphocytes % (Manual) Monocytes % (Manual) Basophils % (Manual) Seg Neutrophils # Seg Neutrophils # Man Lymphocytes # (Manual) Monocytes # (Manual) Eosinophils # (Manual) Basophils # (Manual) PT INR D-Dimer ABG pH POC ABG pCO2 POC ABG pO2 ABG pO2 ABG HCO3 ABG O2 Saturation ABG Base Excess ABG Hemoglobin ABG Oxyhemoglobin ABG Potassium ABG Glucose Oxyhemoglobin Carboxyhemoglobin Sodium 146 H Potassium Chloride Carbon Dioxide 32 H BUN Creatinine < 0.2 L Glucose 120 H POC Glucose 120 H 128 H Calcium Ferritin Total Bilirubin Alkaline Phosphatase Lactate Dehydrogenase Total Creatine Kinase CK-MB (CK-2) Rel Index Troponin T C-Reactive Protein Total Protein Albumin Prealbumin LDL Cholesterol Direct Arterial Blood Glucose Arterial Blood Ionized Calcium Urine WBC (Auto) 03/01/20 03/01/20 03/02/20 17:38 23:46 06:13 WBC RBC Hgb Hct MCV MCH RDW Plt Count Lymph % (Auto) Lymph # (Auto) [place] # (Auto) Seg Neutrophils % Seg Neuts % (Manual) Lymphocytes % (Manual) Monocytes % (Manual) Basophils % (Manual) Seg Neutrophils # Seg Neutrophils # Man Lymphocytes # (Manual) Monocytes # (Manual) Eosinophils # (Manual) Basophils # (Manual) PT INR D-Dimer ABG pH POC ABG pCO2 POC ABG pO2 ABG pO2 ABG HCO3 ABG O2 Saturation ABG Base Excess ABG Hemoglobin ABG Oxyhemoglobin ABG Potassium ABG Glucose Oxyhemoglobin Carboxyhemoglobin Sodium Potassium Chloride Carbon Dioxide BUN Creatinine Glucose POC Glucose 114 H 121 H 120 H Calcium Ferritin Total Bilirubin Alkaline Phosphatase Lactate Dehydrogenase Total Creatine Kinase CK-MB (CK-2) Rel Index Troponin T C-Reactive Protein Total Protein Albumin Prealbumin LDL Cholesterol Direct Arterial Blood Glucose Arterial Blood Ionized Calcium Urine WBC (Auto) 03/02/20 03/02/20 03/03/20 09:47 09:47 10:21 WBC 23.6 H RBC Hgb Hct MCV MCH RDW 15.3 H Plt Count 494 H Lymph % (Auto) Lymph # (Auto) [place] # (Auto) Seg Neutrophils % Seg Neuts % (Manual) 85.0 H Lymphocytes % (Manual) 6.0 L Monocytes % (Manual) Basophils % (Manual) Seg Neutrophils # Seg Neutrophils # Man 20.1 H Lymphocytes # (Manual) Monocytes # (Manual) 1.7 H Eosinophils # (Manual) Basophils # (Manual) PT INR D-Dimer ABG pH POC ABG pCO2 POC ABG pO2 ABG pO2 ABG HCO3 ABG O2 Saturation ABG Base Excess ABG Hemoglobin ABG Oxyhemoglobin ABG Potassium 3.3 L ABG Glucose 158 H Oxyhemoglobin Carboxyhemoglobin Sodium Potassium Chloride Carbon Dioxide BUN Creatinine < 0.2 L Glucose 177 H POC Glucose Calcium Ferritin Total Bilirubin Alkaline Phosphatase Lactate Dehydrogenase Total Creatine Kinase CK-MB (CK-2) Rel Index Troponin T C-Reactive Protein Total Protein Albumin Prealbumin LDL Cholesterol Direct Arterial Blood Glucose 158 H Arterial Blood Ionized Calcium Urine WBC (Auto) 1103/04/20 03/04/20 21:30 00:00 12:23 WBC RBC Hgb Hct MCV MCH RDW Plt Count Lymph % (Auto) Lymph # (Auto) [place] # (Auto) Seg Neutrophils % Seg Neuts % (Manual) Lymphocytes % (Manual) Monocytes % (Manual) Basophils % (Manual) Seg Neutrophils # Seg Neutrophils # Man Lymphocytes # (Manual) Monocytes # (Manual) Eosinophils # (Manual) Basophils # (Manual) PT INR D-Dimer ABG pH 7.328 L POC ABG pCO2 POC ABG pO2 ABG pO2 68.4 L ABG HCO3 35.0 H ABG O2 Saturation 93.9 L ABG Base Excess 6.8 H ABG Hemoglobin 12.7 L ABG Oxyhemoglobin ABG Potassium ABG Glucose Oxyhemoglobin 91.9 L Carboxyhemoglobin Sodium Potassium Chloride Carbon Dioxide BUN Creatinine Glucose POC Glucose 187 H 163 H Calcium Ferritin Total Bilirubin Alkaline Phosphatase Lactate Dehydrogenase Total Creatine Kinase CK-MB (CK-2) Rel Index Troponin T C-Reactive Protein Total Protein Albumin Prealbumin LDL Cholesterol Direct Arterial Blood Glucose Arterial Blood Ionized Calcium Urine WBC (Auto) 03/04/20 03/04/20 03/05/20 18:15 21:30 06:02 WBC RBC Hgb Hct MCV MCH RDW Plt Count Lymph % (Auto) Lymph # (Auto) [place] # (Auto) Seg Neutrophils % Seg Neuts % (Manual) Lymphocytes % (Manual) Monocytes % (Manual) Basophils % (Manual) Seg Neutrophils # Seg Neutrophils # Man Lymphocytes # (Manual) Monocytes # (Manual) Eosinophils # (Manual) Basophils # (Manual) PT INR D-Dimer ABG pH 7.297 L POC ABG pCO2 POC ABG pO2 ABG pO2 ABG HCO3 41.0 H ABG O2 Saturation ABG Base Excess 11.0 H ABG Hemoglobin 13.1 L ABG Oxyhemoglobin ABG Potassium ABG Glucose Oxyhemoglobin 94.5 L Carboxyhemoglobin Sodium Potassium Chloride Carbon Dioxide BUN Creatinine Glucose POC Glucose 192 H 127 H Calcium Ferritin Total Bilirubin Alkaline Phosphatase Lactate Dehydrogenase Total Creatine Kinase CK-MB (CK-2) Rel Index Troponin T C-Reactive Protein Total Protein Albumin Prealbumin LDL Cholesterol Direct Arterial Blood Glucose Arterial Blood Ionized Calcium Urine WBC (Auto) 03/05/20 03/05/20 03/06/20 12:09 16:42 00:24 WBC RBC Hgb Hct MCV MCH RDW Plt Count Lymph % (Auto) Lymph # (Auto) [place] # (Auto) Seg Neutrophils % Seg Neuts % (Manual) Lymphocytes % (Manual) Monocytes % (Manual) Basophils % (Manual) Seg Neutrophils # Seg Neutrophils # Man Lymphocytes # (Manual) Monocytes # (Manual) Eosinophils # (Manual) Basophils # (Manual) PT INR D-Dimer ABG pH POC ABG pCO2 POC ABG pO2 ABG pO2 ABG HCO3 ABG O2 Saturation ABG Base Excess ABG Hemoglobin ABG Oxyhemoglobin ABG Potassium ABG Glucose Oxyhemoglobin Carboxyhemoglobin Sodium Potassium Chloride Carbon Dioxide BUN Creatinine Glucose POC Glucose 147 H 114 H 134 H Calcium Ferritin Total Bilirubin Alkaline Phosphatase Lactate Dehydrogenase Total Creatine Kinase CK-MB (CK-2) Rel Index Troponin T C-Reactive Protein Total Protein Albumin Prealbumin LDL Cholesterol Direct Arterial Blood Glucose Arterial Blood Ionized Calcium Urine WBC (Auto) 03/06/20 03/06/20 03/06/20 04:34 05:53 06:08 WBC 25.4 H RBC Hgb 10.5 L Hct 32.7 L MCV MCH 27 L RDW 15.3 H Plt Count 634 H Lymph % (Auto) Lymph # (Auto) [place] # (Auto) Seg Neutrophils % Seg Neuts % (Manual) 88.0 H Lymphocytes % (Manual) 2.0 L Monocytes % (Manual) 8.0 H Basophils % (Manual) Seg Neutrophils # Seg Neutrophils # Man 22.4 H Lymphocytes # (Manual) 0.5 L Monocytes # (Manual) 2.0 H Eosinophils # (Manual) Basophils # (Manual) PT INR D-Dimer ABG pH POC ABG pCO2 POC ABG pO2 ABG pO2 ABG HCO3 37.9 H ABG O2 Saturation ABG Base Excess 11.4 H ABG Hemoglobin 10.6 L ABG Oxyhemoglobin ABG Potassium ABG Glucose Oxyhemoglobin 94.7 L Carboxyhemoglobin Sodium Potassium Chloride Carbon Dioxide BUN Creatinine Glucose POC Glucose 135 H Calcium Ferritin Total Bilirubin Alkaline Phosphatase Lactate Dehydrogenase Total Creatine Kinase CK-MB (CK-2) Rel Index Troponin T C-Reactive Protein Total Protein Albumin Prealbumin LDL Cholesterol Direct Arterial Blood Glucose Arterial Blood Ionized Calcium Urine WBC (Auto) 03/06/20 03/06/20 03/06/20 06:08 12:19 19:10 WBC RBC Hgb Hct MCV MCH RDW Plt Count Lymph % (Auto) Lymph # (Auto) [place] # (Auto) Seg Neutrophils % Seg Neuts % (Manual) Lymphocytes % (Manual) Monocytes % (Manual) Basophils % (Manual) Seg Neutrophils # Seg Neutrophils # Man Lymphocytes # (Manual) Monocytes # (Manual) Eosinophils # (Manual) Basophils # (Manual) PT INR D-Dimer ABG pH POC ABG pCO2 POC ABG pO2 ABG pO2 ABG HCO3 ABG O2 Saturation ABG Base Excess ABG Hemoglobin ABG Oxyhemoglobin ABG Potassium ABG Glucose Oxyhemoglobin Carboxyhemoglobin Sodium 150 H D Potassium Chloride Carbon Dioxide 39 H D BUN 23 H Creatinine < 0.2 L Glucose 144 H POC Glucose 169 H 152 H Calcium Ferritin Total Bilirubin Alkaline Phosphatase Lactate Dehydrogenase Total Creatine Kinase CK-MB (CK-2) Rel Index Troponin T C-Reactive Protein Total Protein Albumin 3.3 L Prealbumin LDL Cholesterol Direct Arterial Blood Glucose Arterial Blood Ionized Calcium Urine WBC (Auto) 03/06/20 03/07/20 03/07/20 23:58 04:25 04:25 WBC 22.1 H RBC Hgb 10.9 L Hct 32.9 L MCV MCH RDW 15.5 H Plt Count 739 H Lymph % (Auto) 7.8 L Lymph # (Auto) [place] # (Auto) 1.3 H Seg Neutrophils % 85.5 H Seg Neuts % (Manual) Lymphocytes % (Manual) Monocytes % (Manual) Basophils % (Manual) Seg Neutrophils # 18.9 H Seg Neutrophils # Man Lymphocytes # (Manual) Monocytes # (Manual) Eosinophils # (Manual) Basophils # (Manual) PT INR D-Dimer ABG pH POC ABG pCO2 POC ABG pO2 ABG pO2 ABG HCO3 ABG O2 Saturation ABG Base Excess ABG Hemoglobin ABG Oxyhemoglobin ABG Potassium ABG Glucose Oxyhemoglobin Carboxyhemoglobin Sodium 146 H Potassium Chloride Carbon Dioxide 37 H BUN Creatinine < 0.2 L Glucose 118 H POC Glucose 111 H Calcium Ferritin Total Bilirubin Alkaline Phosphatase Lactate Dehydrogenase Total Creatine Kinase CK-MB (CK-2) Rel Index Troponin T C-Reactive Protein Total Protein Albumin 3.7 L Prealbumin LDL Cholesterol Direct Arterial Blood Glucose Arterial Blood Ionized Calcium Urine WBC (Auto) 03/07/20 03/07/20 03/07/20 05:20 17:45 23:32 WBC RBC Hgb Hct MCV MCH RDW Plt Count Lymph % (Auto) Lymph # (Auto) [place] # (Auto) Seg Neutrophils % Seg Neuts % (Manual) Lymphocytes % (Manual) Monocytes % (Manual) Basophils % (Manual) Seg Neutrophils # Seg Neutrophils # Man Lymphocytes # (Manual) Monocytes # (Manual) Eosinophils # (Manual) Basophils # (Manual) PT INR D-Dimer ABG pH POC ABG pCO2 POC ABG pO2 ABG pO2 ABG HCO3 ABG O2 Saturation ABG Base Excess ABG Hemoglobin ABG Oxyhemoglobin ABG Potassium ABG Glucose Oxyhemoglobin Carboxyhemoglobin Sodium Potassium Chloride Carbon Dioxide BUN Creatinine Glucose POC Glucose 113 H 124 H 210 H Calcium Ferritin Total Bilirubin Alkaline Phosphatase Lactate Dehydrogenase Total Creatine Kinase CK-MB (CK-2) Rel Index Troponin T C-Reactive Protein Total Protein Albumin Prealbumin LDL Cholesterol Direct Arterial Blood Glucose Arterial Blood Ionized Calcium Urine WBC (Auto) 03/08/20 03/08/20 03/08/20 05:35 06:43 06:43 WBC 28.9 H RBC 3.53 L Hgb 9.7 L Hct 30.3 L MCV MCH RDW 15.6 H Plt Count 578 H Lymph % (Auto) Lymph # (Auto) [place] # (Auto) Seg Neutrophils % Seg Neuts % (Manual) 93.0 H Lymphocytes % (Manual) 4.0 L Monocytes % (Manual) Basophils % (Manual) Seg Neutrophils # Seg Neutrophils # Man 26.9 H Lymphocytes # (Manual) Monocytes # (Manual) Eosinophils # (Manual) Basophils # (Manual) PT INR D-Dimer ABG pH POC ABG pCO2 POC ABG pO2 ABG pO2 ABG HCO3 ABG O2 Saturation ABG Base Excess ABG Hemoglobin ABG Oxyhemoglobin ABG Potassium ABG Glucose Oxyhemoglobin Carboxyhemoglobin Sodium 146 H Potassium Chloride Carbon Dioxide 35 H BUN 34 H Creatinine 0.3 L D Glucose 125 H POC Glucose 147 H Calcium Ferritin Total Bilirubin Alkaline Phosphatase Lactate Dehydrogenase Total Creatine Kinase CK-MB (CK-2) Rel Index Troponin T C-Reactive Protein Total Protein 5.9 L Albumin 3.2 L Prealbumin LDL Cholesterol Direct Arterial Blood Glucose Arterial Blood Ionized Calcium Urine WBC (Auto) 03/08/20 03/08/20 03/08/20 08:57 11:14 12:34 WBC RBC Hgb Hct MCV MCH RDW Plt Count Lymph % (Auto) Lymph # (Auto) [place] # (Auto) Seg Neutrophils % Seg Neuts % (Manual) Lymphocytes % (Manual) Monocytes % (Manual) Basophils % (Manual) Seg Neutrophils # Seg Neutrophils # Man Lymphocytes # (Manual) Monocytes # (Manual) Eosinophils # (Manual) Basophils # (Manual) PT INR D-Dimer ABG pH POC ABG pCO2 63.1 H POC ABG pO2 ABG pO2 ABG HCO3 ABG O2 Saturation ABG Base Excess ABG Hemoglobin 10.9 L ABG Oxyhemoglobin ABG Potassium ABG Glucose 176 H Oxyhemoglobin Carboxyhemoglobin Sodium Potassium Chloride Carbon Dioxide BUN Creatinine Glucose POC Glucose 171 H Calcium Ferritin Total Bilirubin Alkaline Phosphatase Lactate Dehydrogenase Total Creatine Kinase CK-MB (CK-2) Rel Index Troponin T C-Reactive Protein Total Protein Albumin Prealbumin LDL Cholesterol Direct Arterial Blood Glucose 176 H Arterial Blood Ionized Calcium 4.5 L Urine WBC (Auto) 10.0 H 03/08/20 03/08/20 03/09/20 18:02 23:43 05:49 WBC RBC Hgb Hct MCV MCH RDW Plt Count Lymph % (Auto) Lymph # (Auto) [place] # (Auto) Seg Neutrophils % Seg Neuts % (Manual) Lymphocytes % (Manual) Monocytes % (Manual) Basophils % (Manual) Seg Neutrophils # Seg Neutrophils # Man Lymphocytes # (Manual) Monocytes # (Manual) Eosinophils # (Manual) Basophils # (Manual) PT INR D-Dimer ABG pH POC ABG pCO2 POC ABG pO2 ABG pO2 ABG HCO3 ABG O2 Saturation ABG Base Excess ABG Hemoglobin ABG Oxyhemoglobin ABG Potassium ABG Glucose Oxyhemoglobin Carboxyhemoglobin Sodium Potassium Chloride Carbon Dioxide BUN Creatinine Glucose POC Glucose 157 H 134 H 163 H Calcium Ferritin Total Bilirubin Alkaline Phosphatase Lactate Dehydrogenase Total Creatine Kinase CK-MB (CK-2) Rel Index Troponin T C-Reactive Protein Total Protein Albumin Prealbumin LDL Cholesterol Direct Arterial Blood Glucose Arterial Blood Ionized Calcium Urine WBC (Auto) 03/09/20 03/09/20 03/09/20 08:35 08:35 12:11 WBC 23.4 H RBC 3.36 L Hgb 9.3 L Hct 28.8 L MCV MCH RDW 15.9 H Plt Count 521 H Lymph % (Auto) Lymph # (Auto) [place] # (Auto) Seg Neutrophils % Seg Neuts % (Manual) 87.0 H Lymphocytes % (Manual) 4.0 L Monocytes % (Manual) 9.0 H Basophils % (Manual) Seg Neutrophils # Seg Neutrophils # Man 20.4 H Lymphocytes # (Manual) 0.9 L Monocytes # (Manual) 2.1 H Eosinophils # (Manual) Basophils # (Manual) PT INR D-Dimer ABG pH POC ABG pCO2 POC ABG pO2 ABG pO2 ABG HCO3 ABG O2 Saturation ABG Base Excess ABG Hemoglobin ABG Oxyhemoglobin ABG Potassium ABG Glucose Oxyhemoglobin Carboxyhemoglobin Sodium 147 H Potassium Chloride Carbon Dioxide 37 H BUN 63 H Creatinine Glucose 154 H POC Glucose 128 H Calcium Ferritin Total Bilirubin Alkaline Phosphatase Lactate Dehydrogenase Total Creatine Kinase CK-MB (CK-2) Rel Index Troponin T C-Reactive Protein Total Protein Albumin Prealbumin LDL Cholesterol Direct Arterial Blood Glucose Arterial Blood Ionized Calcium Urine WBC (Auto) 03/09/20 03/10/20 03/10/20 17:51 00:25 05:41 WBC RBC Hgb Hct MCV MCH RDW Plt Count Lymph % (Auto) Lymph # (Auto) [place] # (Auto) Seg Neutrophils % Seg Neuts % (Manual) Lymphocytes % (Manual) Monocytes % (Manual) Basophils % (Manual) Seg Neutrophils # Seg Neutrophils # Man Lymphocytes # (Manual) Monocytes # (Manual) Eosinophils # (Manual) Basophils # (Manual) PT INR D-Dimer ABG pH POC ABG pCO2 POC ABG pO2 ABG pO2 ABG HCO3 ABG O2 Saturation ABG Base Excess ABG Hemoglobin ABG Oxyhemoglobin ABG Potassium ABG Glucose Oxyhemoglobin Carboxyhemoglobin Sodium Potassium Chloride Carbon Dioxide BUN Creatinine Glucose POC Glucose 127 H 128 H 153 H Calcium Ferritin Total Bilirubin Alkaline Phosphatase Lactate Dehydrogenase Total Creatine Kinase CK-MB (CK-2) Rel Index Troponin T C-Reactive Protein Total Protein Albumin Prealbumin LDL Cholesterol Direct Arterial Blood Glucose Arterial Blood Ionized Calcium Urine WBC (Auto) 03/10/20 03/10/20 03/10/20 06:14 06:14 12:02 WBC 18.3 H RBC 3.45 L Hgb 9.5 L Hct 29.5 L MCV MCH RDW 16.1 H Plt Count 494 H Lymph % (Auto) Lymph # (Auto) [place] # (Auto) Seg Neutrophils % Seg Neuts % (Manual) 95.0 H Lymphocytes % (Manual) 1.0 L Monocytes % (Manual) Basophils % (Manual) Seg Neutrophils # Seg Neutrophils # Man 17.4 H Lymphocytes # (Manual) 0.2 L Monocytes # (Manual) Eosinophils # (Manual) Basophils # (Manual) PT INR D-Dimer ABG pH POC ABG pCO2 POC ABG pO2 ABG pO2 ABG HCO3 ABG O2 Saturation ABG Base Excess ABG Hemoglobin ABG Oxyhemoglobin ABG Potassium ABG Glucose Oxyhemoglobin Carboxyhemoglobin Sodium 149 H Potassium Chloride Carbon Dioxide 35 H BUN 34 H Creatinine 0.2 L D Glucose 177 H POC Glucose 151 H Calcium Ferritin Total Bilirubin Alkaline Phosphatase Lactate Dehydrogenase Total Creatine Kinase CK-MB (CK-2) Rel Index Troponin T C-Reactive Protein Total Protein Albumin Prealbumin LDL Cholesterol Direct Arterial Blood Glucose Arterial Blood Ionized Calcium Urine WBC (Auto) 03/10/20 03/10/20 03/11/20 17:41 23:53 05:02 WBC RBC Hgb Hct MCV MCH RDW Plt Count Lymph % (Auto) Lymph # (Auto) [place] # (Auto) Seg Neutrophils % Seg Neuts % (Manual) Lymphocytes % (Manual) Monocytes % (Manual) Basophils % (Manual) Seg Neutrophils # Seg Neutrophils # Man Lymphocytes # (Manual) Monocytes # (Manual) Eosinophils # (Manual) Basophils # (Manual) PT INR D-Dimer ABG pH POC ABG pCO2 POC ABG pO2 ABG pO2 ABG HCO3 ABG O2 Saturation ABG Base Excess ABG Hemoglobin ABG Oxyhemoglobin ABG Potassium ABG Glucose Oxyhemoglobin Carboxyhemoglobin Sodium Potassium Chloride Carbon Dioxide BUN Creatinine Glucose POC Glucose 168 H 142 H 146 H Calcium Ferritin Total Bilirubin Alkaline Phosphatase Lactate Dehydrogenase Total Creatine Kinase CK-MB (CK-2) Rel Index Troponin T C-Reactive Protein Total Protein Albumin Prealbumin LDL Cholesterol Direct Arterial Blood Glucose Arterial Blood Ionized Calcium Urine WBC (Auto) 03/11/20 03/11/20 03/11/20 11:30 14:01 14:01 WBC 19.7 H RBC 3.04 L Hgb 8.7 L Hct 25.8 L MCV MCH RDW 15.6 H Plt Count Lymph % (Auto) Lymph # (Auto) [place] # (Auto) Seg Neutrophils % Seg Neuts % (Manual) Lymphocytes % (Manual) Monocytes % (Manual) Basophils % (Manual) Seg Neutrophils # Seg Neutrophils # Man Lymphocytes # (Manual) Monocytes # (Manual) Eosinophils # (Manual) Basophils # (Manual) PT INR D-Dimer ABG pH POC ABG pCO2 POC ABG pO2 ABG pO2 ABG HCO3 ABG O2 Saturation ABG Base Excess ABG Hemoglobin ABG Oxyhemoglobin ABG Potassium ABG Glucose Oxyhemoglobin Carboxyhemoglobin Sodium 151 H Potassium Chloride Carbon Dioxide 37 H BUN Creatinine < 0.2 L Glucose 171 H POC Glucose 248 H Calcium Ferritin Total Bilirubin Alkaline Phosphatase Lactate Dehydrogenase Total Creatine Kinase CK-MB (CK-2) Rel Index Troponin T C-Reactive Protein Total Protein Albumin Prealbumin LDL Cholesterol Direct Arterial Blood Glucose Arterial Blood Ionized Calcium Urine WBC (Auto) 03/11/20 03/11/20 03/12/20 17:09 23:52 04:39 WBC 19.9 H RBC 3.16 L Hgb 8.9 L Hct 27.5 L MCV MCH RDW 15.7 H Plt Count Lymph % (Auto) 6.8 L Lymph # (Auto) [place] # (Auto) 1.2 H Seg Neutrophils % 86.0 H Seg Neuts % (Manual) Lymphocytes % (Manual) Monocytes % (Manual) Basophils % (Manual) Seg Neutrophils # 17.1 H Seg Neutrophils # Man Lymphocytes # (Manual) Monocytes # (Manual) Eosinophils # (Manual) Basophils # (Manual) PT INR D-Dimer ABG pH POC ABG pCO2 POC ABG pO2 ABG pO2 ABG HCO3 ABG O2 Saturation ABG Base Excess ABG Hemoglobin ABG Oxyhemoglobin ABG Potassium ABG Glucose Oxyhemoglobin Carboxyhemoglobin Sodium Potassium Chloride Carbon Dioxide BUN Creatinine Glucose POC Glucose 124 H 131 H Calcium Ferritin Total Bilirubin Alkaline Phosphatase Lactate Dehydrogenase Total Creatine Kinase CK-MB (CK-2) Rel Index Troponin T C-Reactive Protein Total Protein Albumin Prealbumin LDL Cholesterol Direct Arterial Blood Glucose Arterial Blood Ionized Calcium Urine WBC (Auto) 03/12/20 03/12/20 03/12/20 04:39 05:28 11:34 WBC RBC Hgb Hct MCV MCH RDW Plt Count Lymph % (Auto) Lymph # (Auto) [place] # (Auto) Seg Neutrophils % Seg Neuts % (Manual) Lymphocytes % (Manual) Monocytes % (Manual) Basophils % (Manual) Seg Neutrophils # Seg Neutrophils # Man Lymphocytes # (Manual) Monocytes # (Manual) Eosinophils # (Manual) Basophils # (Manual) PT INR D-Dimer ABG pH POC ABG pCO2 POC ABG pO2 ABG pO2 ABG HCO3 ABG O2 Saturation ABG Base Excess ABG Hemoglobin ABG Oxyhemoglobin ABG Potassium ABG Glucose Oxyhemoglobin Carboxyhemoglobin Sodium 147 H Potassium Chloride Carbon Dioxide 40 H BUN Creatinine < 0.2 L Glucose 175 H POC Glucose 167 H 144 H Calcium Ferritin Total Bilirubin Alkaline Phosphatase Lactate Dehydrogenase Total Creatine Kinase CK-MB (CK-2) Rel Index Troponin T C-Reactive Protein Total Protein Albumin Prealbumin LDL Cholesterol Direct Arterial Blood Glucose Arterial Blood Ionized Calcium Urine WBC (Auto) 03/12/20 03/12/20 03/13/20 17:32 23:57 05:57 WBC RBC Hgb Hct MCV MCH RDW Plt Count Lymph % (Auto) Lymph # (Auto) [place] # (Auto) Seg Neutrophils % Seg Neuts % (Manual) Lymphocytes % (Manual) Monocytes % (Manual) Basophils % (Manual) Seg Neutrophils # Seg Neutrophils # Man Lymphocytes # (Manual) Monocytes # (Manual) Eosinophils # (Manual) Basophils # (Manual) PT INR D-Dimer ABG pH POC ABG pCO2 POC ABG pO2 ABG pO2 ABG HCO3 ABG O2 Saturation ABG Base Excess ABG Hemoglobin ABG Oxyhemoglobin ABG Potassium ABG Glucose Oxyhemoglobin Carboxyhemoglobin Sodium Potassium Chloride Carbon Dioxide BUN Creatinine Glucose POC Glucose 141 H 137 H 161 H Calcium Ferritin Total Bilirubin Alkaline Phosphatase Lactate Dehydrogenase Total Creatine Kinase CK-MB (CK-2) Rel Index Troponin T C-Reactive Protein Total Protein Albumin Prealbumin LDL Cholesterol Direct Arterial Blood Glucose Arterial Blood Ionized Calcium Urine WBC (Auto) 03/13/20 03/13/20 03/13/20 12:28 14:14 18:39 WBC RBC Hgb Hct MCV MCH RDW Plt Count Lymph % (Auto) Lymph # (Auto) [place] # (Auto) Seg Neutrophils % Seg Neuts % (Manual) Lymphocytes % (Manual) Monocytes % (Manual) Basophils % (Manual) Seg Neutrophils # Seg Neutrophils # Man Lymphocytes # (Manual) Monocytes # (Manual) Eosinophils # (Manual) Basophils # (Manual) PT INR D-Dimer ABG pH POC ABG pCO2 POC ABG pO2 ABG pO2 ABG HCO3 ABG O2 Saturation ABG Base Excess ABG Hemoglobin ABG Oxyhemoglobin ABG Potassium ABG Glucose Oxyhemoglobin Carboxyhemoglobin Sodium Potassium Chloride Carbon Dioxide 39 H BUN Creatinine < 0.2 L Glucose 129 H POC Glucose 130 H 125 H Calcium Ferritin Total Bilirubin Alkaline Phosphatase Lactate Dehydrogenase Total Creatine Kinase CK-MB (CK-2) Rel Index Troponin T C-Reactive Protein Total Protein Albumin Prealbumin LDL Cholesterol Direct Arterial Blood Glucose Arterial Blood Ionized Calcium Urine WBC (Auto) 03/13/20 03/14/20 03/14/20 23:33 05:24 08:07 WBC 16.8 H RBC 2.81 L Hgb 7.9 L Hct 23.9 L MCV MCH RDW 15.9 H Plt Count Lymph % (Auto) Lymph # (Auto) [place] # (Auto) Seg Neutrophils % Seg Neuts % (Manual) 84.0 H Lymphocytes % (Manual) 10.0 L Monocytes % (Manual) Basophils % (Manual) Seg Neutrophils # Seg Neutrophils # Man 14.1 H Lymphocytes # (Manual) Monocytes # (Manual) Eosinophils # (Manual) Basophils # (Manual) PT INR D-Dimer ABG pH POC ABG pCO2 POC ABG pO2 ABG pO2 ABG HCO3 ABG O2 Saturation ABG Base Excess ABG Hemoglobin ABG Oxyhemoglobin ABG Potassium ABG Glucose Oxyhemoglobin Carboxyhemoglobin Sodium Potassium Chloride Carbon Dioxide BUN Creatinine Glucose POC Glucose 146 H 125 H Calcium Ferritin Total Bilirubin Alkaline Phosphatase Lactate Dehydrogenase Total Creatine Kinase CK-MB (CK-2) Rel Index Troponin T C-Reactive Protein Total Protein Albumin Prealbumin LDL Cholesterol Direct Arterial Blood Glucose Arterial Blood Ionized Calcium Urine WBC (Auto) 03/14/20 03/14/20 03/14/20 08:07 12:21 18:26 WBC RBC Hgb Hct MCV MCH RDW Plt Count Lymph % (Auto) Lymph # (Auto) [place] # (Auto) Seg Neutrophils % Seg Neuts % (Manual) Lymphocytes % (Manual) Monocytes % (Manual) Basophils % (Manual) Seg Neutrophils # Seg Neutrophils # Man Lymphocytes # (Manual) Monocytes # (Manual) Eosinophils # (Manual) Basophils # (Manual) PT INR D-Dimer ABG pH POC ABG pCO2 POC ABG pO2 ABG pO2 ABG HCO3 ABG O2 Saturation ABG Base Excess ABG Hemoglobin ABG Oxyhemoglobin ABG Potassium ABG Glucose Oxyhemoglobin Carboxyhemoglobin Sodium Potassium Chloride 97.0 L Carbon Dioxide 37 H BUN Creatinine < 0.2 L Glucose 129 H POC Glucose 109 H 142 H Calcium 8.3 L Ferritin Total Bilirubin Alkaline Phosphatase Lactate Dehydrogenase Total Creatine Kinase CK-MB (CK-2) Rel Index Troponin T C-Reactive Protein Total Protein Albumin Prealbumin LDL Cholesterol Direct Arterial Blood Glucose Arterial Blood Ionized Calcium Urine WBC (Auto) 03/14/20 03/15/20 03/15/20 23:57 05:46 08:06 WBC 19.7 H RBC 3.29 L Hgb 9.1 L Hct 28.0 L MCV MCH RDW 15.9 H Plt Count Lymph % (Auto) Lymph # (Auto) [place] # (Auto) Seg Neutrophils % Seg Neuts % (Manual) Lymphocytes % (Manual) Monocytes % (Manual) Basophils % (Manual) Seg Neutrophils # Seg Neutrophils # Man Lymphocytes # (Manual) Monocytes # (Manual) Eosinophils # (Manual) Basophils # (Manual) PT INR D-Dimer ABG pH POC ABG pCO2 POC ABG pO2 ABG pO2 ABG HCO3 ABG O2 Saturation ABG Base Excess ABG Hemoglobin ABG Oxyhemoglobin ABG Potassium ABG Glucose Oxyhemoglobin Carboxyhemoglobin Sodium Potassium Chloride Carbon Dioxide BUN Creatinine Glucose POC Glucose 157 H 118 H Calcium Ferritin Total Bilirubin Alkaline Phosphatase Lactate Dehydrogenase Total Creatine Kinase CK-MB (CK-2) Rel Index Troponin T C-Reactive Protein Total Protein Albumin Prealbumin LDL Cholesterol Direct Arterial Blood Glucose Arterial Blood Ionized Calcium Urine WBC (Auto) 03/15/20 03/15/20 03/15/20 08:06 12:44 18:09 WBC RBC Hgb Hct MCV MCH RDW Plt Count Lymph % (Auto) Lymph # (Auto) [place] # (Auto) Seg Neutrophils % Seg Neuts % (Manual) Lymphocytes % (Manual) Monocytes % (Manual) Basophils % (Manual) Seg Neutrophils # Seg Neutrophils # Man Lymphocytes # (Manual) Monocytes # (Manual) Eosinophils # (Manual) Basophils # (Manual) PT INR D-Dimer ABG pH POC ABG pCO2 POC ABG pO2 ABG pO2 ABG HCO3 ABG O2 Saturation ABG Base Excess ABG Hemoglobin ABG Oxyhemoglobin ABG Potassium ABG Glucose Oxyhemoglobin Carboxyhemoglobin Sodium 136 L Potassium Chloride 93.6 L Carbon Dioxide 37 H BUN Creatinine < 0.2 L Glucose 132 H POC Glucose 151 H 164 H Calcium Ferritin Total Bilirubin Alkaline Phosphatase Lactate Dehydrogenase Total Creatine Kinase CK-MB (CK-2) Rel Index Troponin T C-Reactive Protein Total Protein Albumin Prealbumin LDL Cholesterol Direct Arterial Blood Glucose Arterial Blood Ionized Calcium Urine WBC (Auto) 03/15/20 03/16/20 03/16/20 23:26 05:39 11:58 WBC RBC Hgb Hct MCV MCH RDW Plt Count Lymph % (Auto) Lymph # (Auto) [place] # (Auto) Seg Neutrophils % Seg Neuts % (Manual) Lymphocytes % (Manual) Monocytes % (Manual) Basophils % (Manual) Seg Neutrophils # Seg Neutrophils # Man Lymphocytes # (Manual) Monocytes # (Manual) Eosinophils # (Manual) Basophils # (Manual) PT INR D-Dimer ABG pH POC ABG pCO2 POC ABG pO2 ABG pO2 ABG HCO3 ABG O2 Saturation ABG Base Excess ABG Hemoglobin ABG Oxyhemoglobin ABG Potassium ABG Glucose Oxyhemoglobin Carboxyhemoglobin Sodium Potassium Chloride Carbon Dioxide BUN Creatinine Glucose POC Glucose 136 H 116 H 109 H Calcium Ferritin Total Bilirubin Alkaline Phosphatase Lactate Dehydrogenase Total Creatine Kinase CK-MB (CK-2) Rel Index Troponin T C-Reactive Protein Total Protein Albumin Prealbumin LDL Cholesterol Direct Arterial Blood Glucose Arterial Blood Ionized Calcium Urine WBC (Auto) 03/16/20 03/17/20 03/17/20 23:56 04:40 04:40 WBC 18.0 H RBC 3.33 L Hgb 9.5 L Hct 28.8 L MCV MCH RDW 16.4 H Plt Count 499 H Lymph % (Auto) Lymph # (Auto) [place] # (Auto) Seg Neutrophils % Seg Neuts % (Manual) 82.0 H Lymphocytes % (Manual) 8.0 L Monocytes % (Manual) Basophils % (Manual) Seg Neutrophils # Seg Neutrophils # Man 14.8 H Lymphocytes # (Manual) Monocytes # (Manual) 1.3 H Eosinophils # (Manual) Basophils # (Manual) 0.2 H PT INR D-Dimer ABG pH POC ABG pCO2 POC ABG pO2 ABG pO2 ABG HCO3 ABG O2 Saturation ABG Base Excess ABG Hemoglobin ABG Oxyhemoglobin ABG Potassium ABG Glucose Oxyhemoglobin Carboxyhemoglobin Sodium Potassium Chloride 97.7 L Carbon Dioxide 32 H BUN Creatinine < 0.2 L Glucose 114 H POC Glucose 131 H Calcium Ferritin Total Bilirubin Alkaline Phosphatase Lactate Dehydrogenase Total Creatine Kinase CK-MB (CK-2) Rel Index Troponin T C-Reactive Protein Total Protein Albumin Prealbumin LDL Cholesterol Direct Arterial Blood Glucose Arterial Blood Ionized Calcium Urine WBC (Auto) 03/18/20 03/18/20 03/18/20 00:21 05:21 11:55 WBC RBC Hgb Hct MCV MCH RDW Plt Count Lymph % (Auto) Lymph # (Auto) [place] # (Auto) Seg Neutrophils % Seg Neuts % (Manual) Lymphocytes % (Manual) Monocytes % (Manual) Basophils % (Manual) Seg Neutrophils # Seg Neutrophils # Man Lymphocytes # (Manual) Monocytes # (Manual) Eosinophils # (Manual) Basophils # (Manual) PT INR D-Dimer ABG pH POC ABG pCO2 POC ABG pO2 ABG pO2 ABG HCO3 ABG O2 Saturation ABG Base Excess ABG Hemoglobin ABG Oxyhemoglobin ABG Potassium ABG Glucose Oxyhemoglobin Carboxyhemoglobin Sodium Potassium Chloride Carbon Dioxide BUN Creatinine Glucose POC Glucose 124 H 138 H 119 H Calcium Ferritin Total Bilirubin Alkaline Phosphatase Lactate Dehydrogenase Total Creatine Kinase CK-MB (CK-2) Rel Index Troponin T C-Reactive Protein Total Protein Albumin Prealbumin LDL Cholesterol Direct Arterial Blood Glucose Arterial Blood Ionized Calcium Urine WBC (Auto) 03/18/20 03/18/20 03/19/20 17:03 23:58 05:24 WBC RBC Hgb Hct MCV MCH RDW Plt Count Lymph % (Auto) Lymph # (Auto) [place] # (Auto) Seg Neutrophils % Seg Neuts % (Manual) Lymphocytes % (Manual) Monocytes % (Manual) Basophils % (Manual) Seg Neutrophils # Seg Neutrophils # Man Lymphocytes # (Manual) Monocytes # (Manual) Eosinophils # (Manual) Basophils # (Manual) PT INR D-Dimer ABG pH POC ABG pCO2 POC ABG pO2 ABG pO2 ABG HCO3 ABG O2 Saturation ABG Base Excess ABG Hemoglobin ABG Oxyhemoglobin ABG Potassium ABG Glucose Oxyhemoglobin Carboxyhemoglobin Sodium Potassium Chloride Carbon Dioxide BUN Creatinine Glucose POC Glucose 128 H 128 H 115 H Calcium Ferritin Total Bilirubin Alkaline Phosphatase Lactate Dehydrogenase Total Creatine Kinase CK-MB (CK-2) Rel Index Troponin T C-Reactive Protein Total Protein Albumin Prealbumin LDL Cholesterol Direct Arterial Blood Glucose Arterial Blood Ionized Calcium Urine WBC (Auto) 03/19/20 03/19/20 03/19/20 08:05 08:05 11:56 WBC 16.8 H RBC 3.36 L Hgb 9.4 L Hct 28.8 L MCV MCH RDW 17.4 H Plt Count 567 H Lymph % (Auto) 7.8 L Lymph # (Auto) [place] # (Auto) 1.2 H Seg Neutrophils % 83.5 H Seg Neuts % (Manual) Lymphocytes % (Manual) Monocytes % (Manual) Basophils % (Manual) Seg Neutrophils # 14.1 H Seg Neutrophils # Man Lymphocytes # (Manual) Monocytes # (Manual) Eosinophils # (Manual) Basophils # (Manual) PT INR D-Dimer ABG pH POC ABG pCO2 POC ABG pO2 ABG pO2 ABG HCO3 ABG O2 Saturation ABG Base Excess ABG Hemoglobin ABG Oxyhemoglobin ABG Potassium ABG Glucose Oxyhemoglobin Carboxyhemoglobin Sodium Potassium Chloride Carbon Dioxide 36 H BUN Creatinine < 0.2 L Glucose 135 H POC Glucose 128 H Calcium Ferritin Total Bilirubin Alkaline Phosphatase Lactate Dehydrogenase Total Creatine Kinase CK-MB (CK-2) Rel Index Troponin T C-Reactive Protein Total Protein Albumin Prealbumin LDL Cholesterol Direct Arterial Blood Glucose Arterial Blood Ionized Calcium Urine WBC (Auto) 03/19/20 03/20/20 03/20/20 23:59 05:12 16:52 WBC RBC Hgb Hct MCV MCH RDW Plt Count Lymph % (Auto) Lymph # (Auto) [place] # (Auto) Seg Neutrophils % Seg Neuts % (Manual) Lymphocytes % (Manual) Monocytes % (Manual) Basophils % (Manual) Seg Neutrophils # Seg Neutrophils # Man Lymphocytes # (Manual) Monocytes # (Manual) Eosinophils # (Manual) Basophils # (Manual) PT INR D-Dimer ABG pH POC ABG pCO2 POC ABG pO2 ABG pO2 ABG HCO3 ABG O2 Saturation ABG Base Excess ABG Hemoglobin ABG Oxyhemoglobin ABG Potassium ABG Glucose Oxyhemoglobin Carboxyhemoglobin Sodium Potassium Chloride Carbon Dioxide BUN Creatinine Glucose POC Glucose 120 H 131 H 124 H Calcium Ferritin Total Bilirubin Alkaline Phosphatase Lactate Dehydrogenase Total Creatine Kinase CK-MB (CK-2) Rel Index Troponin T C-Reactive Protein Total Protein Albumin Prealbumin LDL Cholesterol Direct Arterial Blood Glucose Arterial Blood Ionized Calcium Urine WBC (Auto) 03/20/20 03/21/20 03/21/20 23:35 04:50 07:35 WBC 15.2 H RBC 3.39 L Hgb 9.4 L Hct 29.4 L MCV MCH RDW 17.6 H Plt Count 518 H Lymph % (Auto) Lymph # (Auto) [place] # (Auto) Seg Neutrophils % Seg Neuts % (Manual) 83.0 H Lymphocytes % (Manual) 10.0 L Monocytes % (Manual) Basophils % (Manual) 2.0 H Seg Neutrophils # Seg Neutrophils # Man 12.6 H Lymphocytes # (Manual) Monocytes # (Manual) Eosinophils # (Manual) Basophils # (Manual) 0.3 H PT INR D-Dimer ABG pH POC ABG pCO2 POC ABG pO2 ABG pO2 ABG HCO3 ABG O2 Saturation ABG Base Excess ABG Hemoglobin ABG Oxyhemoglobin ABG Potassium ABG Glucose Oxyhemoglobin Carboxyhemoglobin Sodium Potassium Chloride Carbon Dioxide BUN Creatinine Glucose POC Glucose 125 H 127 H Calcium Ferritin Total Bilirubin Alkaline Phosphatase Lactate Dehydrogenase Total Creatine Kinase CK-MB (CK-2) Rel Index Troponin T C-Reactive Protein Total Protein Albumin Prealbumin LDL Cholesterol Direct Arterial Blood Glucose Arterial Blood Ionized Calcium Urine WBC (Auto) 03/21/20 03/21/20 03/21/20 07:35 11:45 17:22 WBC RBC Hgb Hct MCV MCH RDW Plt Count Lymph % (Auto) Lymph # (Auto) [place] # (Auto) Seg Neutrophils % Seg Neuts % (Manual) Lymphocytes % (Manual) Monocytes % (Manual) Basophils % (Manual) Seg Neutrophils # Seg Neutrophils # Man Lymphocytes # (Manual) Monocytes # (Manual) Eosinophils # (Manual) Basophils # (Manual) PT INR D-Dimer ABG pH POC ABG pCO2 POC ABG pO2 ABG pO2 ABG HCO3 ABG O2 Saturation ABG Base Excess ABG Hemoglobin ABG Oxyhemoglobin ABG Potassium ABG Glucose Oxyhemoglobin Carboxyhemoglobin Sodium 136 L Potassium Chloride 97.7 L Carbon Dioxide 32 H BUN Creatinine < 0.2 L Glucose 103 H POC Glucose 126 H 120 H Calcium Ferritin Total Bilirubin Alkaline Phosphatase Lactate Dehydrogenase Total Creatine Kinase CK-MB (CK-2) Rel Index Troponin T C-Reactive Protein Total Protein Albumin Prealbumin LDL Cholesterol Direct Arterial Blood Glucose Arterial Blood Ionized Calcium Urine WBC (Auto) 03/22/20 03/22/20 03/22/20 05:09 06:34 06:34 WBC 17.5 H RBC 3.52 L Hgb 10.0 L Hct 30.7 L MCV MCH RDW 17.5 H Plt Count 499 H Lymph % (Auto) Lymph # (Auto) [place] # (Auto) Seg Neutrophils % Seg Neuts % (Manual) 80.0 H Lymphocytes % (Manual) 10.0 L Monocytes % (Manual) Basophils % (Manual) Seg Neutrophils # Seg Neutrophils # Man 14.0 H Lymphocytes # (Manual) Monocytes # (Manual) Eosinophils # (Manual) Basophils # (Manual) PT INR D-Dimer ABG pH POC ABG pCO2 POC ABG pO2 ABG pO2 ABG HCO3 ABG O2 Saturation ABG Base Excess ABG Hemoglobin ABG Oxyhemoglobin ABG Potassium ABG Glucose Oxyhemoglobin Carboxyhemoglobin Sodium Potassium Chloride 96.6 L Carbon Dioxide 38 H BUN Creatinine < 0.2 L Glucose 139 H POC Glucose 125 H Calcium Ferritin Total Bilirubin Alkaline Phosphatase Lactate Dehydrogenase Total Creatine Kinase CK-MB (CK-2) Rel Index Troponin T C-Reactive Protein Total Protein Albumin Prealbumin LDL Cholesterol Direct Arterial Blood Glucose Arterial Blood Ionized Calcium Urine WBC (Auto) 03/22/20 03/22/20 03/22/20 11:45 18:00 23:32 WBC RBC Hgb Hct MCV MCH RDW Plt Count Lymph % (Auto) Lymph # (Auto) [place] # (Auto) Seg Neutrophils % Seg Neuts % (Manual) Lymphocytes % (Manual) Monocytes % (Manual) Basophils % (Manual) Seg Neutrophils # Seg Neutrophils # Man Lymphocytes # (Manual) Monocytes # (Manual) Eosinophils # (Manual) Basophils # (Manual) PT INR D-Dimer ABG pH POC ABG pCO2 POC ABG pO2 ABG pO2 ABG HCO3 ABG O2 Saturation ABG Base Excess ABG Hemoglobin ABG Oxyhemoglobin ABG Potassium ABG Glucose Oxyhemoglobin Carboxyhemoglobin Sodium Potassium Chloride Carbon Dioxide BUN Creatinine Glucose POC Glucose 135 H 133 H Calcium Ferritin Total Bilirubin Alkaline Phosphatase Lactate Dehydrogenase Total Creatine Kinase CK-MB (CK-2) Rel Index Troponin T 0.113 H* C-Reactive Protein Total Protein Albumin Prealbumin LDL Cholesterol Direct Arterial Blood Glucose Arterial Blood Ionized Calcium Urine WBC (Auto) 03/23/20 03/23/20 03/23/20 01:47 06:21 07:57 WBC RBC Hgb Hct MCV MCH RDW Plt Count Lymph % (Auto) Lymph # (Auto) [place] # (Auto) Seg Neutrophils % Seg Neuts % (Manual) Lymphocytes % (Manual) Monocytes % (Manual) Basophils % (Manual) Seg Neutrophils # Seg Neutrophils # Man Lymphocytes # (Manual) Monocytes # (Manual) Eosinophils # (Manual) Basophils # (Manual) PT INR D-Dimer ABG pH POC ABG pCO2 POC ABG pO2 ABG pO2 ABG HCO3 ABG O2 Saturation ABG Base Excess ABG Hemoglobin ABG Oxyhemoglobin ABG Potassium ABG Glucose Oxyhemoglobin Carboxyhemoglobin Sodium Potassium Chloride Carbon Dioxide BUN Creatinine Glucose POC Glucose 130 H Calcium Ferritin Total Bilirubin Alkaline Phosphatase Lactate Dehydrogenase Total Creatine Kinase CK-MB (CK-2) Rel Index Troponin T 0.143 H* D 0.105 H* D C-Reactive Protein Total Protein Albumin Prealbumin LDL Cholesterol Direct Arterial Blood Glucose Arterial Blood Ionized Calcium Urine WBC (Auto) 03/23/20 03/24/20 03/24/20 12:02 05:33 07:15 WBC 18.0 H RBC Hgb 11.0 L Hct 34.0 L MCV MCH RDW 17.4 H Plt Count 520 H Lymph % (Auto) Lymph # (Auto) [place] # (Auto) Seg Neutrophils % Seg Neuts % (Manual) 88.0 H Lymphocytes % (Manual) 7.0 L Monocytes % (Manual) Basophils % (Manual) Seg Neutrophils # Seg Neutrophils # Man 15.8 H Lymphocytes # (Manual) Monocytes # (Manual) Eosinophils # (Manual) Basophils # (Manual) PT INR D-Dimer ABG pH POC ABG pCO2 POC ABG pO2 ABG pO2 ABG HCO3 ABG O2 Saturation ABG Base Excess ABG Hemoglobin ABG Oxyhemoglobin ABG Potassium ABG Glucose Oxyhemoglobin Carboxyhemoglobin Sodium Potassium Chloride Carbon Dioxide BUN Creatinine Glucose POC Glucose 137 H 112 H Calcium Ferritin Total Bilirubin Alkaline Phosphatase Lactate Dehydrogenase Total Creatine Kinase CK-MB (CK-2) Rel Index Troponin T C-Reactive Protein Total Protein Albumin Prealbumin LDL Cholesterol Direct Arterial Blood Glucose Arterial Blood Ionized Calcium Urine WBC (Auto) 03/24/20 03/24/20 03/24/20 07:15 11:22 23:30 WBC RBC Hgb Hct MCV MCH RDW Plt Count Lymph % (Auto) Lymph # (Auto) [place] # (Auto) Seg Neutrophils % Seg Neuts % (Manual) Lymphocytes % (Manual) Monocytes % (Manual) Basophils % (Manual) Seg Neutrophils # Seg Neutrophils # Man Lymphocytes # (Manual) Monocytes # (Manual) Eosinophils # (Manual) Basophils # (Manual) PT INR D-Dimer ABG pH POC ABG pCO2 POC ABG pO2 ABG pO2 ABG HCO3 ABG O2 Saturation ABG Base Excess ABG Hemoglobin ABG Oxyhemoglobin ABG Potassium ABG Glucose Oxyhemoglobin Carboxyhemoglobin Sodium Potassium Chloride 96.6 L Carbon Dioxide 38 H BUN Creatinine < 0.2 L Glucose 141 H POC Glucose 130 H 120 H Calcium Ferritin Total Bilirubin Alkaline Phosphatase Lactate Dehydrogenase Total Creatine Kinase CK-MB (CK-2) Rel Index Troponin T C-Reactive Protein Total Protein Albumin Prealbumin LDL Cholesterol Direct Arterial Blood Glucose Arterial Blood Ionized Calcium Urine WBC (Auto) 03/25/20 03/25/20 03/25/20 05:48 17:53 23:18 WBC RBC Hgb Hct MCV MCH RDW Plt Count Lymph % (Auto) Lymph # (Auto) [place] # (Auto) Seg Neutrophils % Seg Neuts % (Manual) Lymphocytes % (Manual) Monocytes % (Manual) Basophils % (Manual) Seg Neutrophils # Seg Neutrophils # Man Lymphocytes # (Manual) Monocytes # (Manual) Eosinophils # (Manual) Basophils # (Manual) PT INR D-Dimer ABG pH POC ABG pCO2 POC ABG pO2 ABG pO2 ABG HCO3 ABG O2 Saturation ABG Base Excess ABG Hemoglobin ABG Oxyhemoglobin ABG Potassium ABG Glucose Oxyhemoglobin Carboxyhemoglobin Sodium Potassium Chloride Carbon Dioxide BUN Creatinine Glucose POC Glucose 124 H 109 H 131 H Calcium Ferritin Total Bilirubin Alkaline Phosphatase Lactate Dehydrogenase Total Creatine Kinase CK-MB (CK-2) Rel Index Troponin T C-Reactive Protein Total Protein Albumin Prealbumin LDL Cholesterol Direct Arterial Blood Glucose Arterial Blood Ionized Calcium Urine WBC (Auto) 03/26/20 03/26/20 03/26/20 05:21 08:49 08:49 WBC 19.7 H RBC Hgb 10.7 L Hct 33.5 L MCV MCH 27 L RDW 17.1 H Plt Count 480 H Lymph % (Auto) 5.7 L Lymph # (Auto) 1.1 L [place] # (Auto) 1.2 H Seg Neutrophils % 87.7 H Seg Neuts % (Manual) Lymphocytes % (Manual) Monocytes % (Manual) Basophils % (Manual) Seg Neutrophils # 17.2 H Seg Neutrophils # Man Lymphocytes # (Manual) Monocytes # (Manual) Eosinophils # (Manual) Basophils # (Manual) PT INR D-Dimer ABG pH POC ABG pCO2 POC ABG pO2 ABG pO2 ABG HCO3 ABG O2 Saturation ABG Base Excess ABG Hemoglobin ABG Oxyhemoglobin ABG Potassium ABG Glucose Oxyhemoglobin Carboxyhemoglobin Sodium Potassium Chloride 97.2 L Carbon Dioxide 36 H BUN Creatinine < 0.2 L Glucose 127 H POC Glucose 116 H Calcium Ferritin Total Bilirubin Alkaline Phosphatase Lactate Dehydrogenase Total Creatine Kinase CK-MB (CK-2) Rel Index Troponin T C-Reactive Protein Total Protein Albumin Prealbumin LDL Cholesterol Direct Arterial Blood Glucose Arterial Blood Ionized Calcium Urine WBC (Auto) 03/26/20 03/26/20 03/26/20 11:38 18:44 23:06 WBC RBC Hgb Hct MCV MCH RDW Plt Count Lymph % (Auto) Lymph # (Auto) [place] # (Auto) Seg Neutrophils % Seg Neuts % (Manual) Lymphocytes % (Manual) Monocytes % (Manual) Basophils % (Manual) Seg Neutrophils # Seg Neutrophils # Man Lymphocytes # (Manual) Monocytes # (Manual) Eosinophils # (Manual) Basophils # (Manual) PT INR D-Dimer ABG pH POC ABG pCO2 POC ABG pO2 ABG pO2 ABG HCO3 ABG O2 Saturation ABG Base Excess ABG Hemoglobin ABG Oxyhemoglobin ABG Potassium ABG Glucose Oxyhemoglobin Carboxyhemoglobin Sodium Potassium Chloride Carbon Dioxide BUN Creatinine Glucose POC Glucose 120 H 111 H 134 H Calcium Ferritin Total Bilirubin Alkaline Phosphatase Lactate Dehydrogenase Total Creatine Kinase CK-MB (CK-2) Rel Index Troponin T C-Reactive Protein Total Protein Albumin Prealbumin LDL Cholesterol Direct Arterial Blood Glucose Arterial Blood Ionized Calcium Urine WBC (Auto) 03/27/20 03/27/20 03/27/20 05:41 05:59 05:59 WBC 18.6 H RBC Hgb 10.1 L Hct 31.4 L MCV MCH RDW 17.2 H Plt Count Lymph % (Auto) 8.0 L Lymph # (Auto) [place] # (Auto) 1.2 H Seg Neutrophils % 84.7 H Seg Neuts % (Manual) Lymphocytes % (Manual) Monocytes % (Manual) Basophils % (Manual) Seg Neutrophils # 15.8 H Seg Neutrophils # Man Lymphocytes # (Manual) Monocytes # (Manual) Eosinophils # (Manual) Basophils # (Manual) PT INR D-Dimer ABG pH POC ABG pCO2 POC ABG pO2 ABG pO2 ABG HCO3 ABG O2 Saturation ABG Base Excess ABG Hemoglobin ABG Oxyhemoglobin ABG Potassium ABG Glucose Oxyhemoglobin Carboxyhemoglobin Sodium Potassium Chloride Carbon Dioxide 34 H BUN Creatinine < 0.2 L Glucose 127 H POC Glucose 129 H Calcium Ferritin Total Bilirubin Alkaline Phosphatase Lactate Dehydrogenase Total Creatine Kinase CK-MB (CK-2) Rel Index Troponin T C-Reactive Protein Total Protein Albumin Prealbumin LDL Cholesterol Direct Arterial Blood Glucose Arterial Blood Ionized Calcium Urine WBC (Auto) 03/27/20 03/27/20 03/28/20 17:28 23:22 05:23 WBC RBC Hgb Hct MCV MCH RDW Plt Count Lymph % (Auto) Lymph # (Auto) [place] # (Auto) Seg Neutrophils % Seg Neuts % (Manual) Lymphocytes % (Manual) Monocytes % (Manual) Basophils % (Manual) Seg Neutrophils # Seg Neutrophils # Man Lymphocytes # (Manual) Monocytes # (Manual) Eosinophils # (Manual) Basophils # (Manual) PT INR D-Dimer ABG pH POC ABG pCO2 POC ABG pO2 ABG pO2 ABG HCO3 ABG O2 Saturation ABG Base Excess ABG Hemoglobin ABG Oxyhemoglobin ABG Potassium ABG Glucose Oxyhemoglobin Carboxyhemoglobin Sodium Potassium Chloride Carbon Dioxide BUN Creatinine Glucose POC Glucose 108 H 119 H 129 H Calcium Ferritin Total Bilirubin Alkaline Phosphatase Lactate Dehydrogenase Total Creatine Kinase CK-MB (CK-2) Rel Index Troponin T C-Reactive Protein Total Protein Albumin Prealbumin LDL Cholesterol Direct Arterial Blood Glucose Arterial Blood Ionized Calcium Urine WBC (Auto) 03/28/20 03/28/20 03/28/20 10:28 10:28 11:36 WBC 23.6 H RBC 3.62 L Hgb 10.0 L Hct 30.8 L MCV MCH RDW 16.4 H Plt Count Lymph % (Auto) Lymph # (Auto) [place] # (Auto) Seg Neutrophils % Seg Neuts % (Manual) 89.0 H Lymphocytes % (Manual) 5.0 L Monocytes % (Manual) Basophils % (Manual) Seg Neutrophils # Seg Neutrophils # Man 21.0 H Lymphocytes # (Manual) Monocytes # (Manual) 1.2 H Eosinophils # (Manual) Basophils # (Manual) 0.2 H PT INR D-Dimer ABG pH POC ABG pCO2 POC ABG pO2 ABG pO2 ABG HCO3 ABG O2 Saturation ABG Base Excess ABG Hemoglobin ABG Oxyhemoglobin ABG Potassium ABG Glucose Oxyhemoglobin Carboxyhemoglobin Sodium 134 L Potassium Chloride 94.2 L Carbon Dioxide 35 H BUN Creatinine < 0.2 L Glucose 134 H POC Glucose Calcium Ferritin Total Bilirubin Alkaline Phosphatase Lactate Dehydrogenase Total Creatine Kinase CK-MB (CK-2) Rel Index Troponin T C-Reactive Protein Total Protein Albumin Prealbumin LDL Cholesterol Direct Arterial Blood Glucose Arterial Blood Ionized Calcium Urine WBC (Auto) 39.0 H 03/28/20 03/28/20 03/28/20 11:51 17:08 17:17 WBC RBC Hgb Hct MCV MCH RDW Plt Count Lymph % (Auto) Lymph # (Auto) [place] # (Auto) Seg Neutrophils % Seg Neuts % (Manual) Lymphocytes % (Manual) Monocytes % (Manual) Basophils % (Manual) Seg Neutrophils # Seg Neutrophils # Man Lymphocytes # (Manual) Monocytes # (Manual) Eosinophils # (Manual) Basophils # (Manual) PT INR D-Dimer ABG pH POC ABG pCO2 POC ABG pO2 ABG pO2 ABG HCO3 ABG O2 Saturation ABG Base Excess ABG Hemoglobin ABG Oxyhemoglobin ABG Potassium ABG Glucose Oxyhemoglobin Carboxyhemoglobin Sodium Potassium Chloride Carbon Dioxide BUN Creatinine Glucose POC Glucose 123 H 112 H Calcium Ferritin Total Bilirubin Alkaline Phosphatase Lactate Dehydrogenase Total Creatine Kinase 47 L CK-MB (CK-2) Rel Index 4.6 H Troponin T 0.090 H C-Reactive Protein Total Protein Albumin Prealbumin LDL Cholesterol Direct Arterial Blood Glucose Arterial Blood Ionized Calcium Urine WBC (Auto) 03/28/20 03/29/20 03/29/20 23:22 05:22 10:58 WBC RBC Hgb Hct MCV MCH RDW Plt Count Lymph % (Auto) Lymph # (Auto) [place] # (Auto) Seg Neutrophils % Seg Neuts % (Manual) Lymphocytes % (Manual) Monocytes % (Manual) Basophils % (Manual) Seg Neutrophils # Seg Neutrophils # Man Lymphocytes # (Manual) Monocytes # (Manual) Eosinophils # (Manual) Basophils # (Manual) PT INR D-Dimer ABG pH POC ABG pCO2 POC ABG pO2 ABG pO2 ABG HCO3 ABG O2 Saturation ABG Base Excess ABG Hemoglobin ABG Oxyhemoglobin ABG Potassium ABG Glucose Oxyhemoglobin Carboxyhemoglobin Sodium Potassium Chloride Carbon Dioxide BUN Creatinine Glucose POC Glucose 122 H 116 H 133 H Calcium Ferritin Total Bilirubin Alkaline Phosphatase Lactate Dehydrogenase Total Creatine Kinase CK-MB (CK-2) Rel Index Troponin T C-Reactive Protein Total Protein Albumin Prealbumin LDL Cholesterol Direct Arterial Blood Glucose Arterial Blood Ionized Calcium Urine WBC (Auto) 03/29/20 03/29/20 03/30/20 17:18 23:14 04:57 WBC RBC Hgb Hct MCV MCH RDW Plt Count Lymph % (Auto) Lymph # (Auto) [place] # (Auto) Seg Neutrophils % Seg Neuts % (Manual) Lymphocytes % (Manual) Monocytes % (Manual) Basophils % (Manual) Seg Neutrophils # Seg Neutrophils # Man Lymphocytes # (Manual) Monocytes # (Manual) Eosinophils # (Manual) Basophils # (Manual) PT INR D-Dimer ABG pH POC ABG pCO2 POC ABG pO2 ABG pO2 ABG HCO3 ABG O2 Saturation ABG Base Excess ABG Hemoglobin ABG Oxyhemoglobin ABG Potassium ABG Glucose Oxyhemoglobin Carboxyhemoglobin Sodium Potassium Chloride Carbon Dioxide BUN Creatinine Glucose POC Glucose 111 H 114 H 130 H Calcium Ferritin Total Bilirubin Alkaline Phosphatase Lactate Dehydrogenase Total Creatine Kinase CK-MB (CK-2) Rel Index Troponin T C-Reactive Protein Total Protein Albumin Prealbumin LDL Cholesterol Direct Arterial Blood Glucose Arterial Blood Ionized Calcium Urine WBC (Auto) 03/30/20 03/30/20 03/30/20 11:38 14:47 14:47 WBC 19.9 H RBC Hgb 10.9 L Hct 34.4 L MCV MCH 27 L RDW 16.5 H Plt Count 441 H Lymph % (Auto) 6.4 L Lymph # (Auto) [place] # (Auto) 1.4 H Seg Neutrophils % 86.1 H Seg Neuts % (Manual) Lymphocytes % (Manual) Monocytes % (Manual) Basophils % (Manual) Seg Neutrophils # 17.1 H Seg Neutrophils # Man Lymphocytes # (Manual) Monocytes # (Manual) Eosinophils # (Manual) Basophils # (Manual) PT INR D-Dimer ABG pH POC ABG pCO2 POC ABG pO2 ABG pO2 ABG HCO3 ABG O2 Saturation ABG Base Excess ABG Hemoglobin ABG Oxyhemoglobin ABG Potassium ABG Glucose Oxyhemoglobin Carboxyhemoglobin Sodium 133 L Potassium Chloride 94.6 L Carbon Dioxide 33 H BUN Creatinine < 0.2 L Glucose 194 H POC Glucose 139 H Calcium Ferritin Total Bilirubin Alkaline Phosphatase Lactate Dehydrogenase Total Creatine Kinase CK-MB (CK-2) Rel Index Troponin T C-Reactive Protein Total Protein Albumin 2.8 L Prealbumin LDL Cholesterol Direct Arterial Blood Glucose Arterial Blood Ionized Calcium Urine WBC (Auto) 03/30/20 03/31/20 03/31/20 17:07 05:02 15:21 WBC RBC Hgb Hct MCV MCH RDW Plt Count Lymph % (Auto) Lymph # (Auto) [place] # (Auto) Seg Neutrophils % Seg Neuts % (Manual) Lymphocytes % (Manual) Monocytes % (Manual) Basophils % (Manual) Seg Neutrophils # Seg Neutrophils # Man Lymphocytes # (Manual) Monocytes # (Manual) Eosinophils # (Manual) Basophils # (Manual) PT INR D-Dimer ABG pH POC ABG pCO2 POC ABG pO2 ABG pO2 ABG HCO3 ABG O2 Saturation ABG Base Excess ABG Hemoglobin ABG Oxyhemoglobin ABG Potassium ABG Glucose Oxyhemoglobin Carboxyhemoglobin Sodium Potassium Chloride Carbon Dioxide BUN Creatinine Glucose POC Glucose 163 H 108 H 110 H Calcium Ferritin Total Bilirubin Alkaline Phosphatase Lactate Dehydrogenase Total Creatine Kinase CK-MB (CK-2) Rel Index Troponin T C-Reactive Protein Total Protein Albumin Prealbumin LDL Cholesterol Direct Arterial Blood Glucose Arterial Blood Ionized Calcium Urine WBC (Auto) 03/31/20 03/31/20 04/01/20 17:58 23:19 05:09 WBC RBC Hgb Hct MCV MCH RDW Plt Count Lymph % (Auto) Lymph # (Auto) [place] # (Auto) Seg Neutrophils % Seg Neuts % (Manual) Lymphocytes % (Manual) Monocytes % (Manual) Basophils % (Manual) Seg Neutrophils # Seg Neutrophils # Man Lymphocytes # (Manual) Monocytes # (Manual) Eosinophils # (Manual) Basophils # (Manual) PT INR D-Dimer ABG pH POC ABG pCO2 POC ABG pO2 ABG pO2 ABG HCO3 ABG O2 Saturation ABG Base Excess ABG Hemoglobin ABG Oxyhemoglobin ABG Potassium ABG Glucose Oxyhemoglobin Carboxyhemoglobin Sodium Potassium Chloride Carbon Dioxide BUN Creatinine Glucose POC Glucose 110 H 131 H 124 H Calcium Ferritin Total Bilirubin Alkaline Phosphatase Lactate Dehydrogenase Total Creatine Kinase CK-MB (CK-2) Rel Index Troponin T C-Reactive Protein Total Protein Albumin Prealbumin LDL Cholesterol Direct Arterial Blood Glucose Arterial Blood Ionized Calcium Urine WBC (Auto) 04/01/20 04/01/20 04/01/20 11:50 17:01 23:21 WBC RBC Hgb Hct MCV MCH RDW Plt Count Lymph % (Auto) Lymph # (Auto) [place] # (Auto) Seg Neutrophils % Seg Neuts % (Manual) Lymphocytes % (Manual) Monocytes % (Manual) Basophils % (Manual) Seg Neutrophils # Seg Neutrophils # Man Lymphocytes # (Manual) Monocytes # (Manual) Eosinophils # (Manual) Basophils # (Manual) PT INR D-Dimer ABG pH POC ABG pCO2 POC ABG pO2 ABG pO2 ABG HCO3 ABG O2 Saturation ABG Base Excess ABG Hemoglobin ABG Oxyhemoglobin ABG Potassium ABG Glucose Oxyhemoglobin Carboxyhemoglobin Sodium Potassium Chloride Carbon Dioxide BUN Creatinine Glucose POC Glucose 136 H 115 H 124 H Calcium Ferritin Total Bilirubin Alkaline Phosphatase Lactate Dehydrogenase Total Creatine Kinase CK-MB (CK-2) Rel Index Troponin T C-Reactive Protein Total Protein Albumin Prealbumin LDL Cholesterol Direct Arterial Blood Glucose Arterial Blood Ionized Calcium Urine WBC (Auto) 04/02/20 04/02/20 04/02/20 05:27 11:58 17:58 WBC RBC Hgb Hct MCV MCH RDW Plt Count Lymph % (Auto) Lymph # (Auto) [place] # (Auto) Seg Neutrophils % Seg Neuts % (Manual) Lymphocytes % (Manual) Monocytes % (Manual) Basophils % (Manual) Seg Neutrophils # Seg Neutrophils # Man Lymphocytes # (Manual) Monocytes # (Manual) Eosinophils # (Manual) Basophils # (Manual) PT INR D-Dimer ABG pH POC ABG pCO2 POC ABG pO2 ABG pO2 ABG HCO3 ABG O2 Saturation ABG Base Excess ABG Hemoglobin ABG Oxyhemoglobin ABG Potassium ABG Glucose Oxyhemoglobin Carboxyhemoglobin Sodium Potassium Chloride Carbon Dioxide BUN Creatinine Glucose POC Glucose 117 H 133 H 122 H Calcium Ferritin Total Bilirubin Alkaline Phosphatase Lactate Dehydrogenase Total Creatine Kinase CK-MB (CK-2) Rel Index Troponin T C-Reactive Protein Total Protein Albumin Prealbumin LDL Cholesterol Direct Arterial Blood Glucose Arterial Blood Ionized Calcium Urine WBC (Auto) 04/02/20 04/03/20 04/03/20 23:12 05:11 11:11 WBC RBC Hgb Hct MCV MCH RDW Plt Count Lymph % (Auto) Lymph # (Auto) [place] # (Auto) Seg Neutrophils % Seg Neuts % (Manual) Lymphocytes % (Manual) Monocytes % (Manual) Basophils % (Manual) Seg Neutrophils # Seg Neutrophils # Man Lymphocytes # (Manual) Monocytes # (Manual) Eosinophils # (Manual) Basophils # (Manual) PT INR D-Dimer ABG pH POC ABG pCO2 POC ABG pO2 ABG pO2 ABG HCO3 ABG O2 Saturation ABG Base Excess ABG Hemoglobin ABG Oxyhemoglobin ABG Potassium ABG Glucose Oxyhemoglobin Carboxyhemoglobin Sodium Potassium Chloride Carbon Dioxide BUN Creatinine Glucose POC Glucose 130 H 139 H 136 H Calcium Ferritin Total Bilirubin Alkaline Phosphatase Lactate Dehydrogenase Total Creatine Kinase CK-MB (CK-2) Rel Index Troponin T C-Reactive Protein Total Protein Albumin Prealbumin LDL Cholesterol Direct Arterial Blood Glucose Arterial Blood Ionized Calcium Urine WBC (Auto) 04/03/20 04/03/20 04/04/20 16:51 23:25 05:29 WBC RBC Hgb Hct MCV MCH RDW Plt Count Lymph % (Auto) Lymph # (Auto) [place] # (Auto) Seg Neutrophils % Seg Neuts % (Manual) Lymphocytes % (Manual) Monocytes % (Manual) Basophils % (Manual) Seg Neutrophils # Seg Neutrophils # Man Lymphocytes # (Manual) Monocytes # (Manual) Eosinophils # (Manual) Basophils # (Manual) PT INR D-Dimer ABG pH POC ABG pCO2 POC ABG pO2 ABG pO2 ABG HCO3 ABG O2 Saturation ABG Base Excess ABG Hemoglobin ABG Oxyhemoglobin ABG Potassium ABG Glucose Oxyhemoglobin Carboxyhemoglobin Sodium Potassium Chloride Carbon Dioxide BUN Creatinine Glucose POC Glucose 118 H 111 H 126 H Calcium Ferritin Total Bilirubin Alkaline Phosphatase Lactate Dehydrogenase Total Creatine Kinase CK-MB (CK-2) Rel Index Troponin T C-Reactive Protein Total Protein Albumin Prealbumin LDL Cholesterol Direct Arterial Blood Glucose Arterial Blood Ionized Calcium Urine WBC (Auto) 04/04/20 04/04/20 04/04/20 11:47 17:41 23:05 WBC RBC Hgb Hct MCV MCH RDW Plt Count Lymph % (Auto) Lymph # (Auto) [place] # (Auto) Seg Neutrophils % Seg Neuts % (Manual) Lymphocytes % (Manual) Monocytes % (Manual) Basophils % (Manual) Seg Neutrophils # Seg Neutrophils # Man Lymphocytes # (Manual) Monocytes # (Manual) Eosinophils # (Manual) Basophils # (Manual) PT INR D-Dimer ABG pH POC ABG pCO2 POC ABG pO2 ABG pO2 ABG HCO3 ABG O2 Saturation ABG Base Excess ABG Hemoglobin ABG Oxyhemoglobin ABG Potassium ABG Glucose Oxyhemoglobin Carboxyhemoglobin Sodium Potassium Chloride Carbon Dioxide BUN Creatinine Glucose POC Glucose 123 H 120 H 119 H Calcium Ferritin Total Bilirubin Alkaline Phosphatase Lactate Dehydrogenase Total Creatine Kinase CK-MB (CK-2) Rel Index Troponin T C-Reactive Protein Total Protein Albumin Prealbumin LDL Cholesterol Direct Arterial Blood Glucose Arterial Blood Ionized Calcium Urine WBC (Auto) 04/05/20 04/05/20 04/05/20 05:14 12:16 18:48 WBC RBC Hgb Hct MCV MCH RDW Plt Count Lymph % (Auto) Lymph # (Auto) [place] # (Auto) Seg Neutrophils % Seg Neuts % (Manual) Lymphocytes % (Manual) Monocytes % (Manual) Basophils % (Manual) Seg Neutrophils # Seg Neutrophils # Man Lymphocytes # (Manual) Monocytes # (Manual) Eosinophils # (Manual) Basophils # (Manual) PT INR D-Dimer ABG pH POC ABG pCO2 POC ABG pO2 ABG pO2 ABG HCO3 ABG O2 Saturation ABG Base Excess ABG Hemoglobin ABG Oxyhemoglobin ABG Potassium ABG Glucose Oxyhemoglobin Carboxyhemoglobin Sodium Potassium Chloride Carbon Dioxide BUN Creatinine Glucose POC Glucose 123 H 148 H 106 H Calcium Ferritin Total Bilirubin Alkaline Phosphatase Lactate Dehydrogenase Total Creatine Kinase CK-MB (CK-2) Rel Index Troponin T C-Reactive Protein Total Protein Albumin Prealbumin LDL Cholesterol Direct Arterial Blood Glucose Arterial Blood Ionized Calcium Urine WBC (Auto) 04/06/20 04/06/20 04/06/20 00:47 03:26 08:24 WBC RBC Hgb Hct MCV MCH RDW Plt Count Lymph % (Auto) Lymph # (Auto) [place] # (Auto) Seg Neutrophils % Seg Neuts % (Manual) Lymphocytes % (Manual) Monocytes % (Manual) Basophils % (Manual) Seg Neutrophils # Seg Neutrophils # Man Lymphocytes # (Manual) Monocytes # (Manual) Eosinophils # (Manual) Basophils # (Manual) PT INR D-Dimer ABG pH POC ABG pCO2 POC ABG pO2 ABG pO2 ABG HCO3 ABG O2 Saturation ABG Base Excess ABG Hemoglobin ABG Oxyhemoglobin ABG Potassium ABG Glucose Oxyhemoglobin Carboxyhemoglobin Sodium Potassium Chloride Carbon Dioxide BUN Creatinine Glucose POC Glucose 129 H 134 H 131 H Calcium Ferritin Total Bilirubin Alkaline Phosphatase Lactate Dehydrogenase Total Creatine Kinase CK-MB (CK-2) Rel Index Troponin T C-Reactive Protein Total Protein Albumin Prealbumin LDL Cholesterol Direct Arterial Blood Glucose Arterial Blood Ionized Calcium Urine WBC (Auto) 04/06/20 04/06/20 04/06/20 11:16 16:27 23:01 WBC RBC Hgb Hct MCV MCH RDW Plt Count Lymph % (Auto) Lymph # (Auto) [place] # (Auto) Seg Neutrophils % Seg Neuts % (Manual) Lymphocytes % (Manual) Monocytes % (Manual) Basophils % (Manual) Seg Neutrophils # Seg Neutrophils # Man Lymphocytes # (Manual) Monocytes # (Manual) Eosinophils # (Manual) Basophils # (Manual) PT INR D-Dimer ABG pH POC ABG pCO2 POC ABG pO2 ABG pO2 ABG HCO3 ABG O2 Saturation ABG Base Excess ABG Hemoglobin ABG Oxyhemoglobin ABG Potassium ABG Glucose Oxyhemoglobin Carboxyhemoglobin Sodium Potassium Chloride Carbon Dioxide BUN Creatinine Glucose POC Glucose 131 H 107 H 125 H Calcium Ferritin Total Bilirubin Alkaline Phosphatase Lactate Dehydrogenase Total Creatine Kinase CK-MB (CK-2) Rel Index Troponin T C-Reactive Protein Total Protein Albumin Prealbumin LDL Cholesterol Direct Arterial Blood Glucose Arterial Blood Ionized Calcium Urine WBC (Auto) 04/07/20 04/07/20 04/07/20 05:24 12:41 17:40 WBC RBC Hgb Hct MCV MCH RDW Plt Count Lymph % (Auto) Lymph # (Auto) [place] # (Auto) Seg Neutrophils % Seg Neuts % (Manual) Lymphocytes % (Manual) Monocytes % (Manual) Basophils % (Manual) Seg Neutrophils # Seg Neutrophils # Man Lymphocytes # (Manual) Monocytes # (Manual) Eosinophils # (Manual) Basophils # (Manual) PT INR D-Dimer ABG pH POC ABG pCO2 POC ABG pO2 ABG pO2 ABG HCO3 ABG O2 Saturation ABG Base Excess ABG Hemoglobin ABG Oxyhemoglobin ABG Potassium ABG Glucose Oxyhemoglobin Carboxyhemoglobin Sodium Potassium Chloride Carbon Dioxide BUN Creatinine Glucose POC Glucose 125 H 145 H 123 H Calcium Ferritin Total Bilirubin Alkaline Phosphatase Lactate Dehydrogenase Total Creatine Kinase CK-MB (CK-2) Rel Index Troponin T C-Reactive Protein Total Protein Albumin Prealbumin LDL Cholesterol Direct Arterial Blood Glucose Arterial Blood Ionized Calcium Urine WBC (Auto) 04/07/20 04/08/20 04/08/20 23:22 05:40 11:29 WBC RBC Hgb Hct MCV MCH RDW Plt Count Lymph % (Auto) Lymph # (Auto) [place] # (Auto) Seg Neutrophils % Seg Neuts % (Manual) Lymphocytes % (Manual) Monocytes % (Manual) Basophils % (Manual) Seg Neutrophils # Seg Neutrophils # Man Lymphocytes # (Manual) Monocytes # (Manual) Eosinophils # (Manual) Basophils # (Manual) PT INR D-Dimer ABG pH POC ABG pCO2 POC ABG pO2 ABG pO2 ABG HCO3 ABG O2 Saturation ABG Base Excess ABG Hemoglobin ABG Oxyhemoglobin ABG Potassium ABG Glucose Oxyhemoglobin Carboxyhemoglobin Sodium Potassium Chloride Carbon Dioxide BUN Creatinine Glucose POC Glucose 133 H 125 H 116 H Calcium Ferritin Total Bilirubin Alkaline Phosphatase Lactate Dehydrogenase Total Creatine Kinase CK-MB (CK-2) Rel Index Troponin T C-Reactive Protein Total Protein Albumin Prealbumin LDL Cholesterol Direct Arterial Blood Glucose Arterial Blood Ionized Calcium Urine WBC (Auto) 04/08/20 04/09/20 04/09/20 17:43 05:47 12:22 WBC RBC Hgb Hct MCV MCH RDW Plt Count Lymph % (Auto) Lymph # (Auto) [place] # (Auto) Seg Neutrophils % Seg Neuts % (Manual) Lymphocytes % (Manual) Monocytes % (Manual) Basophils % (Manual) Seg Neutrophils # Seg Neutrophils # Man Lymphocytes # (Manual) Monocytes # (Manual) Eosinophils # (Manual) Basophils # (Manual) PT INR D-Dimer ABG pH POC ABG pCO2 POC ABG pO2 ABG pO2 ABG HCO3 ABG O2 Saturation ABG Base Excess ABG Hemoglobin ABG Oxyhemoglobin ABG Potassium ABG Glucose Oxyhemoglobin Carboxyhemoglobin Sodium Potassium Chloride Carbon Dioxide BUN Creatinine Glucose POC Glucose 123 H 108 H 116 H Calcium Ferritin Total Bilirubin Alkaline Phosphatase Lactate Dehydrogenase Total Creatine Kinase CK-MB (CK-2) Rel Index Troponin T C-Reactive Protein Total Protein Albumin Prealbumin LDL Cholesterol Direct Arterial Blood Glucose Arterial Blood Ionized Calcium Urine WBC (Auto) 04/09/20 04/09/20 04/10/20 17:24 23:52 06:10 WBC RBC Hgb Hct MCV MCH RDW Plt Count Lymph % (Auto) Lymph # (Auto) [place] # (Auto) Seg Neutrophils % Seg Neuts % (Manual) Lymphocytes % (Manual) Monocytes % (Manual) Basophils % (Manual) Seg Neutrophils # Seg Neutrophils # Man Lymphocytes # (Manual) Monocytes # (Manual) Eosinophils # (Manual) Basophils # (Manual) PT INR D-Dimer ABG pH POC ABG pCO2 POC ABG pO2 ABG pO2 ABG HCO3 ABG O2 Saturation ABG Base Excess ABG Hemoglobin ABG Oxyhemoglobin ABG Potassium ABG Glucose Oxyhemoglobin Carboxyhemoglobin Sodium Potassium Chloride Carbon Dioxide BUN Creatinine Glucose POC Glucose 108 H 126 H 122 H Calcium Ferritin Total Bilirubin Alkaline Phosphatase Lactate Dehydrogenase Total Creatine Kinase CK-MB (CK-2) Rel Index Troponin T C-Reactive Protein Total Protein Albumin Prealbumin LDL Cholesterol Direct Arterial Blood Glucose Arterial Blood Ionized Calcium Urine WBC (Auto) 04/10/20 04/10/20 04/10/20 11:27 18:11 23:24 WBC RBC Hgb Hct MCV MCH RDW Plt Count Lymph % (Auto) Lymph # (Auto) [place] # (Auto) Seg Neutrophils % Seg Neuts % (Manual) Lymphocytes % (Manual) Monocytes % (Manual) Basophils % (Manual) Seg Neutrophils # Seg Neutrophils # Man Lymphocytes # (Manual) Monocytes # (Manual) Eosinophils # (Manual) Basophils # (Manual) PT INR D-Dimer ABG pH POC ABG pCO2 POC ABG pO2 ABG pO2 ABG HCO3 ABG O2 Saturation ABG Base Excess ABG Hemoglobin ABG Oxyhemoglobin ABG Potassium ABG Glucose Oxyhemoglobin Carboxyhemoglobin Sodium Potassium Chloride Carbon Dioxide BUN Creatinine Glucose POC Glucose 129 H 125 H 107 H Calcium Ferritin Total Bilirubin Alkaline Phosphatase Lactate Dehydrogenase Total Creatine Kinase CK-MB (CK-2) Rel Index Troponin T C-Reactive Protein Total Protein Albumin Prealbumin LDL Cholesterol Direct Arterial Blood Glucose Arterial Blood Ionized Calcium Urine WBC (Auto) 04/11/20 04/11/20 04/11/20 05:28 11:46 23:49 WBC RBC Hgb Hct MCV MCH RDW Plt Count Lymph % (Auto) Lymph # (Auto) [place] # (Auto) Seg Neutrophils % Seg Neuts % (Manual) Lymphocytes % (Manual) Monocytes % (Manual) Basophils % (Manual) Seg Neutrophils # Seg Neutrophils # Man Lymphocytes # (Manual) Monocytes # (Manual) Eosinophils # (Manual) Basophils # (Manual) PT INR D-Dimer ABG pH POC ABG pCO2 POC ABG pO2 ABG pO2 ABG HCO3 ABG O2 Saturation ABG Base Excess ABG Hemoglobin ABG Oxyhemoglobin ABG Potassium ABG Glucose Oxyhemoglobin Carboxyhemoglobin Sodium Potassium Chloride Carbon Dioxide BUN Creatinine Glucose POC Glucose 122 H 122 H 116 H Calcium Ferritin Total Bilirubin Alkaline Phosphatase Lactate Dehydrogenase Total Creatine Kinase CK-MB (CK-2) Rel Index Troponin T C-Reactive Protein Total Protein Albumin Prealbumin LDL Cholesterol Direct Arterial Blood Glucose Arterial Blood Ionized Calcium Urine WBC (Auto) 04/12/20 04/12/20 04/12/20 09:07 09:07 11:39 WBC 13.1 H RBC 3.59 L Hgb 9.5 L Hct 29.8 L MCV 83 L MCH 26 L RDW 16.6 H Plt Count 591 H Lymph % (Auto) Lymph # (Auto) [place] # (Auto) Seg Neutrophils % Seg Neuts % (Manual) 86.0 H Lymphocytes % (Manual) 7.0 L Monocytes % (Manual) Basophils % (Manual) Seg Neutrophils # Seg Neutrophils # Man 11.3 H Lymphocytes # (Manual) 0.9 L Monocytes # (Manual) Eosinophils # (Manual) Basophils # (Manual) PT INR D-Dimer ABG pH POC ABG pCO2 POC ABG pO2 ABG pO2 ABG HCO3 ABG O2 Saturation ABG Base Excess ABG Hemoglobin ABG Oxyhemoglobin ABG Potassium ABG Glucose Oxyhemoglobin Carboxyhemoglobin Sodium Potassium Chloride Carbon Dioxide 36 H BUN Creatinine < 0.2 L Glucose 132 H POC Glucose 136 H Calcium Ferritin Total Bilirubin Alkaline Phosphatase Lactate Dehydrogenase Total Creatine Kinase CK-MB (CK-2) Rel Index Troponin T C-Reactive Protein Total Protein Albumin 2.7 L Prealbumin LDL Cholesterol Direct Arterial Blood Glucose Arterial Blood Ionized Calcium Urine WBC (Auto) 04/12/20 04/12/20 04/13/20 18:13 23:07 05:45 WBC RBC Hgb Hct MCV MCH RDW Plt Count Lymph % (Auto) Lymph # (Auto) [place] # (Auto) Seg Neutrophils % Seg Neuts % (Manual) Lymphocytes % (Manual) Monocytes % (Manual) Basophils % (Manual) Seg Neutrophils # Seg Neutrophils # Man Lymphocytes # (Manual) Monocytes # (Manual) Eosinophils # (Manual) Basophils # (Manual) PT INR D-Dimer ABG pH POC ABG pCO2 POC ABG pO2 ABG pO2 ABG HCO3 ABG O2 Saturation ABG Base Excess ABG Hemoglobin ABG Oxyhemoglobin ABG Potassium ABG Glucose Oxyhemoglobin Carboxyhemoglobin Sodium Potassium Chloride Carbon Dioxide BUN Creatinine Glucose POC Glucose 107 H 106 H 125 H Calcium Ferritin Total Bilirubin Alkaline Phosphatase Lactate Dehydrogenase Total Creatine Kinase CK-MB (CK-2) Rel Index Troponin T C-Reactive Protein Total Protein Albumin Prealbumin LDL Cholesterol Direct Arterial Blood Glucose Arterial Blood Ionized Calcium Urine WBC (Auto) 04/13/20 04/13/20 04/13/20 11:18 17:56 23:33 WBC RBC Hgb Hct MCV MCH RDW Plt Count Lymph % (Auto) Lymph # (Auto) [place] # (Auto) Seg Neutrophils % Seg Neuts % (Manual) Lymphocytes % (Manual) Monocytes % (Manual) Basophils % (Manual) Seg Neutrophils # Seg Neutrophils # Man Lymphocytes # (Manual) Monocytes # (Manual) Eosinophils # (Manual) Basophils # (Manual) PT INR D-Dimer ABG pH POC ABG pCO2 POC ABG pO2 ABG pO2 ABG HCO3 ABG O2 Saturation ABG Base Excess ABG Hemoglobin ABG Oxyhemoglobin ABG Potassium ABG Glucose Oxyhemoglobin Carboxyhemoglobin Sodium Potassium Chloride Carbon Dioxide BUN Creatinine Glucose POC Glucose 133 H 110 H 114 H Calcium Ferritin Total Bilirubin Alkaline Phosphatase Lactate Dehydrogenase Total Creatine Kinase CK-MB (CK-2) Rel Index Troponin T C-Reactive Protein Total Protein Albumin Prealbumin LDL Cholesterol Direct Arterial Blood Glucose Arterial Blood Ionized Calcium Urine WBC (Auto) 04/14/20 04/14/20 04/14/20 05:58 11:45 17:48 WBC RBC Hgb Hct MCV MCH RDW Plt Count Lymph % (Auto) Lymph # (Auto) [place] # (Auto) Seg Neutrophils % Seg Neuts % (Manual) Lymphocytes % (Manual) Monocytes % (Manual) Basophils % (Manual) Seg Neutrophils # Seg Neutrophils # Man Lymphocytes # (Manual) Monocytes # (Manual) Eosinophils # (Manual) Basophils # (Manual) PT INR D-Dimer ABG pH POC ABG pCO2 POC ABG pO2 ABG pO2 ABG HCO3 ABG O2 Saturation ABG Base Excess ABG Hemoglobin ABG Oxyhemoglobin ABG Potassium ABG Glucose Oxyhemoglobin Carboxyhemoglobin Sodium Potassium Chloride Carbon Dioxide BUN Creatinine Glucose POC Glucose 115 H 122 H 124 H Calcium Ferritin Total Bilirubin Alkaline Phosphatase Lactate Dehydrogenase Total Creatine Kinase CK-MB (CK-2) Rel Index Troponin T C-Reactive Protein Total Protein Albumin Prealbumin LDL Cholesterol Direct Arterial Blood Glucose Arterial Blood Ionized Calcium Urine WBC (Auto) 04/15/20 04/15/20 04/15/20 00:11 05:38 11:31 WBC RBC Hgb Hct MCV MCH RDW Plt Count Lymph % (Auto) Lymph # (Auto) [place] # (Auto) Seg Neutrophils % Seg Neuts % (Manual) Lymphocytes % (Manual) Monocytes % (Manual) Basophils % (Manual) Seg Neutrophils # Seg Neutrophils # Man Lymphocytes # (Manual) Monocytes # (Manual) Eosinophils # (Manual) Basophils # (Manual) PT INR D-Dimer ABG pH POC ABG pCO2 POC ABG pO2 ABG pO2 ABG HCO3 ABG O2 Saturation ABG Base Excess ABG Hemoglobin ABG Oxyhemoglobin ABG Potassium ABG Glucose Oxyhemoglobin Carboxyhemoglobin Sodium Potassium Chloride Carbon Dioxide BUN Creatinine Glucose POC Glucose 120 H 109 H 123 H Calcium Ferritin Total Bilirubin Alkaline Phosphatase Lactate Dehydrogenase Total Creatine Kinase CK-MB (CK-2) Rel Index Troponin T C-Reactive Protein Total Protein Albumin Prealbumin LDL Cholesterol Direct Arterial Blood Glucose Arterial Blood Ionized Calcium Urine WBC (Auto) 04/15/20 04/16/20 04/16/20 17:35 06:00 11:29 WBC RBC Hgb Hct MCV MCH RDW Plt Count Lymph % (Auto) Lymph # (Auto) [place] # (Auto) Seg Neutrophils % Seg Neuts % (Manual) Lymphocytes % (Manual) Monocytes % (Manual) Basophils % (Manual) Seg Neutrophils # Seg Neutrophils # Man Lymphocytes # (Manual) Monocytes # (Manual) Eosinophils # (Manual) Basophils # (Manual) PT INR D-Dimer ABG pH POC ABG pCO2 POC ABG pO2 ABG pO2 ABG HCO3 ABG O2 Saturation ABG Base Excess ABG Hemoglobin ABG Oxyhemoglobin ABG Potassium ABG Glucose Oxyhemoglobin Carboxyhemoglobin Sodium Potassium Chloride Carbon Dioxide BUN Creatinine Glucose POC Glucose 111 H 142 H 108 H Calcium Ferritin Total Bilirubin Alkaline Phosphatase Lactate Dehydrogenase Total Creatine Kinase CK-MB (CK-2) Rel Index Troponin T C-Reactive Protein Total Protein Albumin Prealbumin LDL Cholesterol Direct Arterial Blood Glucose Arterial Blood Ionized Calcium Urine WBC (Auto) 04/17/20 04/17/20 04/17/20 05:09 06:53 06:53 WBC 14.2 H RBC Hgb 10.1 L Hct 31.5 L MCV MCH 27 L RDW 17.2 H Plt Count 643 H Lymph % (Auto) Lymph # (Auto) [place] # (Auto) Seg Neutrophils % Seg Neuts % (Manual) Lymphocytes % (Manual) Monocytes % (Manual) Basophils % (Manual) Seg Neutrophils # Seg Neutrophils # Man Lymphocytes # (Manual) Monocytes # (Manual) Eosinophils # (Manual) Basophils # (Manual) PT INR D-Dimer ABG pH POC ABG pCO2 POC ABG pO2 ABG pO2 ABG HCO3 ABG O2 Saturation ABG Base Excess ABG Hemoglobin ABG Oxyhemoglobin ABG Potassium ABG Glucose Oxyhemoglobin Carboxyhemoglobin Sodium Potassium Chloride 97.7 L Carbon Dioxide 38 H BUN Creatinine < 0.2 L Glucose 126 H POC Glucose 131 H Calcium Ferritin Total Bilirubin Alkaline Phosphatase Lactate Dehydrogenase Total Creatine Kinase CK-MB (CK-2) Rel Index Troponin T C-Reactive Protein Total Protein Albumin Prealbumin LDL Cholesterol Direct Arterial Blood Glucose Arterial Blood Ionized Calcium Urine WBC (Auto) 04/17/20 04/18/20 04/18/20 11:21 00:23 04:01 WBC 15.3 H RBC Hgb 10.1 L Hct 31.9 L MCV 82 L MCH 26 L RDW 17.2 H Plt Count 665 H Lymph % (Auto) 12.9 L Lymph # (Auto) [place] # (Auto) 1.1 H Seg Neutrophils % 78.0 H Seg Neuts % (Manual) Lymphocytes % (Manual) Monocytes % (Manual) Basophils % (Manual) Seg Neutrophils # 11.9 H Seg Neutrophils # Man Lymphocytes # (Manual) Monocytes # (Manual) Eosinophils # (Manual) Basophils # (Manual) PT INR D-Dimer ABG pH POC ABG pCO2 POC ABG pO2 ABG pO2 ABG HCO3 ABG O2 Saturation ABG Base Excess ABG Hemoglobin ABG Oxyhemoglobin ABG Potassium ABG Glucose Oxyhemoglobin Carboxyhemoglobin Sodium Potassium Chloride Carbon Dioxide BUN Creatinine Glucose POC Glucose 140 H 125 H Calcium Ferritin Total Bilirubin Alkaline Phosphatase Lactate Dehydrogenase Total Creatine Kinase CK-MB (CK-2) Rel Index Troponin T C-Reactive Protein Total Protein Albumin Prealbumin LDL Cholesterol Direct Arterial Blood Glucose Arterial Blood Ionized Calcium Urine WBC (Auto) 04/18/20 04:01 WBC RBC Hgb Hct MCV MCH RDW Plt Count Lymph % (Auto) Lymph # (Auto) [place] # (Auto) Seg Neutrophils % Seg Neuts % (Manual) Lymphocytes % (Manual) Monocytes % (Manual) Basophils % (Manual) Seg Neutrophils # Seg Neutrophils # Man Lymphocytes # (Manual) Monocytes # (Manual) Eosinophils # (Manual) Basophils # (Manual) PT INR D-Dimer ABG pH POC ABG pCO2 POC ABG pO2 ABG pO2 ABG HCO3 ABG O2 Saturation ABG Base Excess ABG Hemoglobin ABG Oxyhemoglobin ABG Potassium ABG Glucose Oxyhemoglobin Carboxyhemoglobin Sodium Potassium Chloride 97.0 L Carbon Dioxide 38 H BUN Creatinine < 0.2 L Glucose 117 H POC Glucose Calcium Ferritin Total Bilirubin Alkaline Phosphatase Lactate Dehydrogenase Total Creatine Kinase CK-MB (CK-2) Rel Index Troponin T C-Reactive Protein Total Protein Albumin Prealbumin LDL Cholesterol Direct Arterial Blood Glucose Arterial Blood Ionized Calcium Urine WBC (Auto) Allied health notes reviewed: RT
--- NOTE | 2020-04-18 10:21 | Progress Note ---
Assessment and Plan Assessment and plan: --Acute hypoxic hypercapnic respiratory failure; S/p tracheostomy on ventilatory support etiology secondary to sepsis, ALS, multifocal pneumonia (Covid negative). Pulmonary following --ALS --Oral thrush Nystatin/Magic mouthwash swish and spit --Constipation; Patient already received Dulcolax suppository and Colace Received milk of magnesia, with relief --History of ALS - Stable --Elevated D-dimers; imaging studies negative for PE and DVT --Bilateral pneumonia; probably community-acquired Completed the treatment, continue supportive care --Sepsis secondary to pneumonia; completed the treatment resolved --Elevated troponin non-ST elevation MN type II Continue current management --Febrile illness; resolved ,secondary to pneumonia Complete antibiotics , resolved --DVT prophylaxis; Lovenox. 02/25/2020. CTA of the chest reveals no PE but does illustrate the bilateral pneumonia. Doppler ultrasound also negative for DVT. Blood cultures are pending. Await COVID-19 testing. Patient currently requiring BiPAP IPAP 24/EPAP 6 with FiO2 of 25%. Continue O2 and BiPAP as clinically indicated. ID and pulmonary consulted. 02/26/2020. Blood cultures are negative x48 hours and Covid testing negative as well. Continue antibiotics per ID recommendations for community-acquired bilate ral pneumonia. Cardiology consultation for elevated troponin. Check echocardiogram. 02/27/2020. Events of yesterday noted with asystole following V. fib arrest. Patient currently on AC mode rate 20, tidal volume 400, FiO2 50% and a PEEP of 6. Follow-up echocardiogram for elevated troponin. Cardiology suspects NSTEMI Type 2 in the setting of acute resp failure. Chest CTA and BLE Dopplers neg. we will discontinue Decadron given the Covid PCR is negative. 02/28/2020. I spoke with the sister Felisa Eli who is the power of county attorney regarding advanced directives and she instructed me that she would like to continue with aggressive care at this time. I informed her of the guarded prognosis and high mortality/morbidity and she voiced understanding. Patient currently with AC mode ventilation rate 18, tidal volume 400, FiO2 40% and a PEEP of 6. Continue antibiotics for pneumonia. ID previously consulted. Also consult neurology with regards to ALS. 02/29/2020; patient is intubated and on CPAP patient is alert and oriented. Patient has ALS. Dr. Álvarez spoke with his sister and she wants aggressive care. Continue antibiotics for pneumonia. Neurology consulted for ALS. Progno sis poor 03/01/2020; patient is intubated and on CPAP, patient is alert and oriented. I spoke with his 2 sisters about the management plan. 03/02/2020; patient is intubated and on CPAP. Patient was alert and oriented. I spoke with Dr. mohr and he thinks patient may need mechanical ventilat ion, likely his disease progressed. Dr. Flowers did debridement this morning. 03/03/2020; patient is intubated and on CPAP, patient was on trilogy and BiPAP at home. Patient has ALS. on spontaneous breathing trial. Patient is alert and oriented but quadriplegic. Patient has severe bilateral pneumonia and is on cefepime and Vanco, ID is following. Patient has sacral decubitus ulcer and debridement was done by Dr. Flowers and there is no osteomyelitis. 03/05. Patient still on broad-spectrum antibiotics. Status post sacral decubitus ulcer debridements-no osteomyelitis. Patient is on AC 25/400/30% PEEP 5. No blood gas results today. 03/06. Plan for tracheostomy by surgery. Still remains intubated. Labs reviewed-sodium 150. Started on free water 200 every 8hr. trend sodium. 03/07: s/p trach placement today, patient placed back on mechanical ventilation with trach. Plan to resume tube feeding with NG tube. Continue to monitor vitals, monitor BMP. 03/08: Patient noted to have distended abdomen with low urinary output. Obtain bladder scan rule out urine retention, UA and urine culture, continue to follow clinically. 03/09: Patient noted to have low blood pressure with SBP as low as 70s. Ordered for 500 mils normal saline bolus. CT abdomen showed bladder outlet obstruction, urology consulted. 03/10: placed on drake by urology o/n, improved urine outpt. cont to monitor BMP. resuded TF - cont free water with TF. wean off from vent as tolerated. 03/11: Vitals stable. cont TF, wean off from vent as tolerated. start on 1/2 NS for hypernatremia - follow BMP 03/12: wean off vent as tolerated, plan for speech eval, cont Tf for now, cont iv fluid 03/13: unable to wean off from vent, unable to do speech therapy eval. will need PEG tube, cont supportive care for now, cont NG tube feeding 03/14: consulted GI for PEg placemnet, cont supportive care. remains on vent at night 03/15: Discussed with GI, plan for PEG tube placement possibly tomorrow. Continue supportive care and wean off from vent as tolerated. Hold Lovenox dose tonight. 03/16: family didnot consent for PEG placement yesterday. I spoke with the daughter today and she is now agreeable for PEG tube. I explained the necessity of the procedure with RN to the patient also and he nodded started on tube feeding, for the procedure. will cont supportive care. planned for PEG tube placement tomorrow. 03/17: s/p PEG placement today, patient tolerated well, cont supportive care 03/18: Started on tube feeding with new PEG tube, continue to wean off vent as tolerated 03/19: cont to monitor with supportive care, wean off vent as tolerated 03/20: Continue to wean off vent as tolerated -but failing weaning trial. Still requiring vent support at night. Currently on PEG tube for tube feed. 03/21. Pt with PSV trials with FiO@ 30%, PEEP 6, PS 10. Currently on PEG tube for tube feed. 03/22/2020. Continue PSV trials per pulmonary. Continue bronchodilators. Patient tolerating tube feedings. Continue Robinul for secretion control. 03/23/2020. Continue PSV trials per pulmonary. Continue bronchodilators. Continue Scopolamine and Robinul for secretion control. Trach care/airway management. Mobility protocols for pressure ulcer prophylaxis. LTAC evaluation per case management 03/24/2020. Continue PSV trials with current settings pressure support 10, PEEP 6 and FiO2 30%. Continue bronchodilators/nebulizer. Continue Scopolamine and Robinul for secretion control. Trach care/airway management. Mobility protocols for pressure ulcer prophylaxis. LTAC evaluation per case management 03/25/2020. Pulmonary to proceed with T-piece trials today. Continue bronchodi lators/nebulizer. Continue Scopolamine and Robinul for secretion control. Trach care/airway management. Mobility protocols for pressure ulcer prophylaxis. 03/26/2020. Patient currently with PSV 10/6 at FiO2 of 30%. Continue weaning and T-piece trials per protocol. Continue bronchodilators/nebulizer. Continue Scopolamine and Robinul for secretion control. Trach care/airway management. Mobility protocols for pressure ulcer prophylaxis. Continue tube feeding with aspiration precautions. 03/27/2020. Patient currently with PSV 01/31 at FiO2 of 30%. Continue weaning and T-piece trials per protocol. Continue bronchodilators/nebulizer. Continue Scopolamine and Robinul for secretion control. Trach care/airway management. Mobility protocols for pressure ulcer prophylaxis. Continue tube feeding with aspiration precautions. 03/28. Had temp 100.7F. He has been off antibiotics. Will send blood culture, ua, urine culture and chest xray. Had chest pain overnight and trop was elevated as well. Cardiology to evaluate 03/29. Has back pain due to position. He mentions his chest pain is positional. Has no other complaints. Still on mechanical ventilation 03/30. No chest pain today. Labs reviewed. Discussed chest pain with cardiology and team advised no further work up at this time. Can follow up with cardiology in the office after hospitalization 03/31. Lidocaine patch for lower back pain. 04/01. Discharge planning underway. CM notes reviewed. Discussed with daughter 04/02 - . CM trying to arrange discharge. Continue PSV trials. Discussed with patients significant other 04/04/2020; CM is working for discharge arrangement. Continue PSV trials. 04/05/2020; patient was seen and evaluated this morning and no change from baseline. Continue with PSV trials. Follow with district sales coordinator for discharge planning. 04/06/2020;patient was seen and evaluated this morning and no change from baseline. Continue with PSV trials. Follow with district sales coordinator for discharge planning. 04/07/2020; patient was seen and evaluated this morning and no change from baseline. Continue with PSV trials. Follow with district sales coordinator for discharge planning. 04/08/2020; patient is vent dependent. Discharge is per district sales coordinator. 04/09/2020 patient is vent dependent, possible LTAC placement 04/10/2020; tracheostomy on vent, vent dependent pending LTAC placement 04/11/2020; clinically no change, tracheostomy on ventilatory support, wean as tolerated, awaiting placement 04/12/2020; remains on ventilatory support, unable to wean, patient wants to see a speech therapist for sound box However we cannot try that as long as he is on ventilatory support, once he is weaned off vent We will consult speech therapist, plan of care reviewed with the patient and his nurse 04/14/2020; clinically no change, on ventilatory support, complains of constipation, milk of magnesia Closely monitor the patient and adjust the management as needed 04/15/2020; patient has some oral thrush on the tongue, will give Magic mouthwash/nystatin swish and spit Wean off vent as tolerated 04/16 patient is alert and oriented, unable to comprehend what he is trying to tell but appears to complain of some pain, no acute events overnight, all interdisciplinary notes reviewed. Waiting for LTAC versus prison f acility placement 04/17/2020. Continue supportive care with mechanical ventilation. Patient currently on AC mode rate 10, tidal volume 400 FiO2 30% with a PEEP of 6. Discharge planning per case management. 04/18/2020. Patient remains on mechanical ventilation AC mode rate 10, tidal volume 400, FiO2 30% and PEEP of 6. Continue spontaneous breathing trials as tolerated. Previously, patient was considered for discharge home with skilled staff providing care for 12 hours 7 days/week. Continue discussed with case management discharge planning. The high probability of a clinically significant, sudden or life threatening deterioration of the [cardiac and respiratory] system(s) required my full and direct attention, intervention and personal management. The aggregate critical care time was [32] minutes. 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 Patient was on a trilogy machine for breathing 18/11. EMS arrived, patient had O2 sats in the 80s. EMS attempted to place patient on their CPAP machine, however patient did not tolerate. Patient was admitted to the ICU with diagnosis of acute hypoxic respiratory failure and placed on BiPAP. Patient initially tolerated but later deteriorated with respiratory status. CTA chest showed no PE but significant for bilateral pneumonia. Doppler ultrasound also negative for DVT. COVID-19 test ordered. Due to persistent hypoxia, patient was intubated on 02/26/2020 at 1500. Patient now on mechanical ventilation in the ICU s/p trach placement and now unable to wean off from the mechanical ventilation. Patient now status post PEG placement for tube feeding. Pending long-term placement -LTAC versus SNF Hospitalist Physical - Constitutional Vitals: Temp Pulse Resp BP Pulse Ox 97.8 F 114 H 11 L 107/68 99 04/18/20 08:00 04/18/20 09:42 04/18/20 06:00 04/18/20 09:42 04/18/20 07:51 General appearance: Present: no acute distress, cachectic - EENT Eyes: Present: PERRL, EOM intact ENT: hearing intact, clear oral mucosa, dentition normal - Neck Neck: Present: supple, normal ROM - Respiratory Respiratory effort: normal Respiratory: bilateral: CTA - Cardiovascular Rhythm: regular Heart Sounds: Present: S1 & S2. Absent: gallop, rub - Extremities Extremities: no ischemia, No edema, Full ROM - Abdominal General gastrointestinal: soft, non-tender, non-distended, normal bowel sounds - Integumentary Integumentary: Present: clear, warm, dry - Neurologic Neurologic: CNII-XII intact, moves all extremities HEART Score - HEART Score Troponin: Troponin T 0.090 ng/mL (0.00-0.029) H 03/28/20 17:17 Results - Labs CBC & Chem 7: 04/18/20 04:01 04/18/20 04:01 Labs: Laboratory Last Values WBC 15.3 K/mm3 (4.5-11.0) H 04/18/20 04:01 RBC 3.91 M/mm3 (3.65-5.03) 04/18/20 04:01 Hgb 10.1 gm/dl (11.8-15.2) L 04/18/20 04:01 Hct 31.9 % (35.5-45.6) L 04/18/20 04:01 MCV 82 fl (84-94) L 04/18/20 04:01 MCH 26 pg (28-32) L 04/18/20 04:01 MCHC 32 % (32-34) 04/18/20 04:01 RDW 17.2 % (13.2-15.2) H 04/18/20 04:01 Plt Count 665 K/mm3 (140-440) H 04/18/20 04:01 Lymph % (Auto) 12.9 % (13.4-35.0) L 04/18/20 04:01 Hinds % (Auto) 7.0 % (0.0-7.3) 04/18/20 04:01 Eos % (Auto) 1.4 % (0.0-4.3) 04/18/20 04:01 Baso % (Auto) 0.7 % (0.0-1.8) 04/18/20 04:01 Lymph # (Auto) 2.0 K/mm3 (1.2-5.4) 04/18/20 04:01 Hinds # (Auto) 1.1 K/mm3 (0.0-0.8) H 04/18/20 04:01 Eos # (Auto) 0.2 K/mm3 (0.0-0.4) 04/18/20 04:01 Baso # (Auto) 0.1 K/mm3 (0.0-0.1) 04/18/20 04:01 Add Manual Diff Complete 04/12/20 09:07 Total Counted 100 04/12/20 09:07 Seg Neutrophils % 78.0 % (40.0-70.0) H 04/18/20 04:01 Seg Neuts % (Manual) 86.0 % (40.0-70.0) H 04/12/20 09:07 Band Neutrophils % 0 % 03/28/20 10:28 Lymphocytes % (Manual) 7.0 % (13.4-35.0) L 04/12/20 09:07 Reactive Lymphs % (Man) 0 % 03/28/20 10:28 Monocytes % (Manual) 3.0 % (0.0-7.3) 04/12/20 09:07 Eosinophils % (Manual) 1.0 % (0.0-4.3) 04/12/20 09:07 Basophils % (Manual) 1.0 % (0.0-1.8) 03/28/20 10:28 Metamyelocytes % 3.0 % 04/12/20 09:07 Myelocytes % 0 % 03/28/20 10:28 Promyelocytes % 0 % 03/28/20 10:28 Blast Cells % 0 % 03/28/20 10:28 Nucleated RBC % Not Reportable 04/12/20 09:07 Seg Neutrophils # 11.9 K/mm3 (1.8-7.7) H 04/18/20 04:01 Seg Neutrophils # Man 11.3 K/mm3 (1.8-7.7) H 04/12/20 09:07 Band Neutrophils # 0.0 K/mm3 04/12/20 09:07 Lymphocytes # (Manual) 0.9 K/mm3 (1.2-5.4) L 04/12/20 09:07 Abs React Lymphs (Man) 0.0 K/mm3 04/12/20 09:07 Monocytes # (Manual) 0.4 K/mm3 (0.0-0.8) 04/12/20 09:07 Eosinophils # (Manual) 0.1 K/mm3 (0.0-0.4) 04/12/20 09:07 Basophils # (Manual) 0.0 K/mm3 (0.0-0.1) 04/12/20 09:07 Metamyelocytes # 0.4 K/mm3 04/12/20 09:07 Myelocytes # 0.0 K/mm3 04/12/20 09:07 Promyelocytes # 0.0 K/mm3 04/12/20 09:07 Blast Cells # 0.0 K/mm3 04/12/20 09:07 WBC Morphology Not Reportable 04/12/20 09:07 Hypersegmented Neuts Not Reportable 04/12/20 09:07 Hyposegmented Neuts Not Reportable 04/12/20 09:07 Hypogranular Neuts Not Reportable 04/12/20 09:07 Smudge Cells Not Reportable 04/12/20 09:07 Toxic Granulation Not Reportable 04/12/20 09:07 Toxic Vacuolation Not Reportable 04/12/20 09:07 Dohle Bodies Not Reportable 04/12/20 09:07 Pelger-Huet Anomaly Not Reportable 04/12/20 09:07 Robert Rods Not Reportable 04/12/20 09:07 Platelet Estimate Consistent w auto 04/12/20 09:07 Clumped Platelets Not Reportable 04/12/20 09:07 Plt Clumps, EDTA Not Reportable 04/12/20 09:07 Large Platelets Few 04/12/20 09:07 Giant Platelets Not Reportable 04/12/20 09:07 Platelet Satelliting Not Reportable 04/12/20 09:07 Plt Morphology Comment Not Reportable 04/12/20 09:07 RBC Morphology Not Reportable 04/12/20 09:07 Dimorphic RBCs Not Reportable 04/12/20 09:07 Polychromasia Few 04/12/20 09:07 Hypochromasia Not Reportable 04/12/20 09:07 Poikilocytosis Not Reportable 04/12/20 09:07 Anisocytosis 1+ 04/12/20 09:07 Microcytosis Not Reportable 04/12/20 09:07 Macrocytosis Not Reportable 04/12/20 09:07 Spherocytes Not Reportable 04/12/20 09:07 Pappenheimer Bodies Not Reportable 04/12/20 09:07 Sickle Cells Not Reportable 04/12/20 09:07 Target Cells Not Reportable 04/12/20 09:07 Tear Drop Cells Not Reportable 04/12/20 09:07 Ovalocytes Not Reportable 04/12/20 09:07 Stomatocytes Few 03/17/20 04:40 Helmet Cells Not Reportable 04/12/20 09:07 Gregory-Kenesaw Bodies Not Reportable 04/12/20 09:07 Purdys Rings Not Reportable 04/12/20 09:07 Riaz Cells Not Reportable 04/12/20 09:07 Bite Cells Not Reportable 04/12/20 09:07 Crenated Cell Not Reportable 04/12/20 09:07 Elliptocytes Not Reportable 04/12/20 09:07 Acanthocytes (Spur) Not Reportable 04/12/20 09:07 Rouleaux Not Reportable 04/12/20 09:07 Hemoglobin C Crystals Not Reportable 04/12/20 09:07 Schistocytes Not Reportable 04/12/20 09:07 Malaria parasites Not Reportable 04/12/20 09:07 Colton Bodies Not Reportable 04/12/20 09:07 Hem Pathologist Commnt No 04/12/20 09:07 PT 15.6 Sec. (12.2-14.9) H 02/24/20 09:19 INR 1.21 (0.87-1.13) H 02/24/20 09:19 APTT 25.4 Sec. (24.2-36.6) 02/24/20 09:19 D-Dimer 1311.96 ng/mlDDU (0-234) H 02/24/20 09:19 ABG pH 7.371 (7.320-7.450) 03/08/20 12:34 POC ABG pCO2 63.1 mmHg (32.0-48.0) H 03/08/20 12:34 ABG pCO2 60.1 mm Hg 03/06/20 04:34 POC ABG pO2 90.5 mmHg (83-108) 03/08/20 12:34 ABG pO2 88.6 mm Hg (80.0-90.0) 03/06/20 04:34 POC ABG HCO3 35.7 03/08/20 12:34 ABG HCO3 37.9 mmol/L (20.0-26.0) H 03/06/20 04:34 ABG O2 Saturation 97.0 % (95.0-99.0) 03/06/20 04:34 ABG O2 Content 14.3 (0.0-44) 03/06/20 04:34 POC ABG Base Excess 8.7 03/08/20 12:34 ABG Base Excess 11.4 mmol/L (-2.0-3.0) H 03/06/20 04:34 ABG Hemoglobin 10.9 (12.0-17.5) L 03/08/20 12:34 ABG Oxyhemoglobin 95.9 (94-98) 03/08/20 12:34 ABG Carboxyhemoglobin 1.7 % (0.0-5.0) 03/06/20 04:34 ABG Methemoglobin 0.3 (0.0-1.5) 03/08/20 12:34 ABG Sodium 143.6 mmol/L (136.0-145.0) 03/08/20 12:34 ABG Potassium 3.8 mmol/L (3.40-4.50) 03/08/20 12:34 ABG Chloride 102.0 mmol/L (98-107) 03/08/20 12:34 ABG Glucose 176 mg/dL (65-95) H 03/08/20 12:34 Oxyhemoglobin 94.7 % (95.0-99.0) L 03/06/20 04:34 Carboxyhemoglobin 0.7 (0.5-1.5) 03/08/20 12:34 FiO2 30 03/08/20 12:34 Sodium 139 mmol/L (137-145) 04/18/20 04:01 Potassium 3.9 mmol/L (3.6-5.0) 04/18/20 04:01 Chloride 97.0 mmol/L (98-107) L 04/18/20 04:01 Carbon Dioxide 38 mmol/L (22-30) H 04/18/20 04:01 Anion Gap 8 mmol/L 04/18/20 04:01 BUN 16 mg/dL (9-20) 04/18/20 04:01 Creatinine < 0.2 mg/dL (0.8-1.3) L 04/18/20 04:01 Estimated GFR > 60 ml/min 04/18/20 04:01 BUN/Creatinine Ratio 80 % 04/18/20 04:01 Glucose 117 mg/dL (75-100) H 04/18/20 04:01 POC Glucose 101 mg/dL (70-105) 04/18/20 05:40 Lactic Acid 1.00 mmol/L (0.7-2.0) 02/24/20 12:07 Calcium 8.9 mg/dL (8.4-10.2) 04/18/20 04:01 Phosphorus 3.30 mg/dL (2.5-4.5) 03/29/20 14:35 Magnesium 1.90 mg/dL (1.7-2.3) 04/12/20 09:07 Ferritin 1715.0 ng/mL (30.0-300.0) H 02/24/20 10:01 Total Bilirubin 0.20 mg/dL (0.1-1.2) 04/12/20 09:07 AST 15 units/L (5-40) 04/12/20 09:07 ALT 15 units/L (7-56) 04/12/20 09:07 Alkaline Phosphatase 62 units/L (35-129) 04/12/20 09:07 Lactate Dehydrogenase 303 units/L (91-180) H 02/24/20 09:19 Total Creatine Kinase 47 units/L (55-170) L 03/28/20 17:17 CK-MB (CK-2) 2.2 ng/mL (0.0-4.0) 03/28/20 17:17 CK-MB (CK-2) Rel Index 4.6 (0-4) H 03/28/20 17:17 Troponin T 0.090 ng/mL (0.00-0.029) H 03/28/20 17:17 C-Reactive Protein 4.70 mg/dL (0.00-1.30) H 02/28/20 11:05 NT-Pro-B Natriuret Pep 48.30 pg/mL (0-900) 02/24/20 09:19 Total Protein 6.7 g/dL (6.3-8.2) 04/12/20 09:07 Albumin 2.7 g/dL (3.9-5) L 04/12/20 09:07 Albumin/Globulin Ratio 0.7 % 04/12/20 09:07 Prealbumin 0.090 g/L (0.200-0.400) L 02/28/20 12:54 Triglycerides 34 mg/dL (2-149) 03/22/20 18:00 Cholesterol 104 mg/dL (50-199) 03/22/20 18:00 LDL Cholesterol Direct 54 mg/dL (50-130) 03/22/20 18:00 HDL Cholesterol 40 mg/dL (40-59) 03/22/20 18:00 Cholesterol/HDL Ratio 2.60 % 03/22/20 18:00 Procalcitonin < 0.05 ng/mL (<0.15) 03/28/20 17:12 Arterial Blood Glucose 176 mg/dL (65-95) H 03/08/20 12:34 Arterial Blood Ionized Calcium 4.5 mg/dL (4.6-5.3) L 03/08/20 12:34 Urine Color Yellow (Yellow) 03/28/20 11:36 Urine Turbidity Hazy (Clear) 03/28/20 11:36 Urine pH 5.0 (5.0-7.0) 03/28/20 11:36 Ur Specific Orient 1.026 (1.003-1.030) 03/28/20 11:36 Urine Protein 100 mg/dl mg/dL (Negative) 03/28/20 11:36 Urine Glucose (UA) Neg mg/dL (Negative) 03/28/20 11:36 Urine Ketones Neg mg/dL (Negative) 03/28/20 11:36 Urine Blood Neg (Negative) 03/28/20 11:36 Urine Nitrite Neg (Negative) 03/28/20 11:36 Urine Bilirubin Neg (Negative) 03/28/20 11:36 Urine Urobilinogen 4.0 mg/dL (<2.0) 03/28/20 11:36 Ur Leukocyte Esterase Mod (Negative) 03/28/20 11:36 Urine WBC (Auto) 39.0 /HPF (0.0-6.0) H 03/28/20 11:36 Urine RBC (Auto) 16.0 /HPF (0.0-6.0) 03/28/20 11:36 U Epithel Cells (Auto) < 1.0 /HPF (0-13.0) 03/08/20 08:57 Urine Bacteria (Auto) 2+ /HPF (Negative) 03/28/20 11:36 Urine Mucus 3+ /HPF 03/28/20 11:36 Urine Yeast (Budding) 2+ /HPF 03/28/20 11:36 Vancomycin Trough 8.0 ug/mL (5.0-20.0) 03/04/20 08:59 Coronavirus (PCR) Negative (Negative) 02/25/20 09:03 - Diagnostic Impressions Diagnostic Impressions: Echocardiogram 02/26/20 10:41 Transthoracic Echocardiogram Indication: Elevated Trop BP: 116/75 HR: 85 Conclusions *Global left ventricular wall motion and contractility are within normal limits. *The estimated ejection fraction is 50-55%. *Abnormal left ventricular diastolic filling is observed, consistent with impaired relaxation. *There is no pericardial effusion. Findings Left Ventricle: The left ventricular chamber size is normal. Global left ventricular wall motion and contractility are within normal limits. Global left ventricular systolic function is normal. The estimated ejection fraction is 50-55%. Abnormal left ventricular diastolic filling is observed, consistent with impaired relaxation. Left Atrium: The left atrial chamber size is normal. Right Ventricle: The right ventricular cavity size is normal. Right Atrium: The right atrial cavity size is normal. Aortic Valve: Mild aortic leaflet calcification is visualized. There is no evidence of aortic regurgitation. Mitral Valve: The mitral valve leaflets are mildly thickened. There is no evidence of mitral regurgitation. Tricuspid Valve: The tricuspid valve leaflets are normal. There is trace tricuspid regurgitation. The right ventricular systolic pressure is calculated at 29 mmHg. Pulmonic Valve: The pulmonic valve is not well visualized. Pericardium: There is no pericardial effusion. Aorta: The aorta appears normal. Venous: The inferior vena cava is dilated. There is less than 50% respiratory change in the inferior vena cava dimension. Measurements Chambers 2D Name Value Normal Range IVSd (2D) 0.97 cm (0.6 - 1.1) LVPWd (2D) 0.93 cm (0.6 - 1.1) LVIDd (2D) 4 cm (3.7 - 5.6) LVIDs (2D) 2.73 cm (2 - 3.8) LV FS (2D) 31.67 % - EF Teichholz (2D) 60.23 % - Ao root diameter (2D) 3.51 cm (2 - 3.7) Volumes/Mass Name Value Normal Range LA ESV SP 4CH (A/L) 8.43 ml - LA ESV SP 2CH (A/L) 18.89 ml - LA ESV BP (A/L) 13.02 ml - LA ESV BP (A/L) index 8.8 ml/m2 - LA ESV SP 4CH (MOD) 7.22 ml - LA ESV SP 2CH (MOD) 18.15 ml - LA ESV BP (MOD) 11.47 ml - LA ESV BP (MOD) index 7.75 ml/m2 - Diastolic/Systolic Function Name Value Normal Range MV E-wave Vmax 0.51 m/sec - MV deceleration time 180.22 msec - MV A-wave Vmax 0.62 m/sec - MV E:A ratio 0.82 ratio - Aortic Valve Name Value Normal Range AV Vmax 1.17 m/sec - AV VTI 19.71 cm - AV peak gradient 5.44 mmHg - AV mean gradient 3.38 mmHg - LVOT diameter 2.26 cm - LVOT Vmax 0.89 m/sec - LVOT VTI 13.72 cm - LVOT peak gradient 3.17 mmHg - LVOT mean gradient 1.67 mmHg - SV LVOT 55.03 ml - SHARAD (continuity Vmax) 3.06 cm2 - SHARAD (continuity VTI) 2.79 cm2 - Tricuspid Valve Name Value Normal Range TR Vmax 2.3 m/sec - TR peak gradient 21 mmHg - RAP 8 mmHg - RVSP 29 mmHg - IVC diameter 2.59 cm (1.2 - 2.3) Pulmonic Valve/Qp:Qs Name Value Normal Range PV acceleration time 68.51 msec - Drake/IV: Voiding Method Indwelling Catheter IV Catheter Type [Right Wrist] INT / Saline Lock IV Catheter Type [Left Hand] Peripheral IV IV Catheter Type [Right Hand] Peripheral IV IV Catheter Type [Left Wrist] Peripheral IV IV Catheter Type [Right Peripheral IV Forearm] IV Catheter Type [Right Triple Lumen Cath Internal Jugular] IV Catheter Type [Left Forearm INT / Saline Lock ] IV Catheter Type [Right Triple Lumen Cath Femoral] IV Catheter Type [Right INT / Saline Lock Antecubital] Active Medications - Current Medications Current Medications: Generic Name Dose Route Start Last Admin Trade Name Freq PRN Reason Stop Dose Admin Acetaminophen 650 mg 02/24/20 15:13 04/14/20 22:25 Tylenol PO 650 mg Q4H PRN Administration Pain, Mild (1-3) Albuterol 2.5 mg 02/24/20 15:13 Proventil IH Q4HRT PRN Shortness Of Breath Alprazolam 0.5 mg 03/30/20 14:19 04/18/20 09:40 Xanax PO 0.5 mg Q8H PRN Administration Anxiety Lipase/Protease/Amylase 1 each 02/26/20 11:16 Pancreaze 10,500 Unit FEEDTUBE PRN PRN For Clogged Feeding Tube Baclofen 10 mg 04/03/20 12:00 04/18/20 09:41 Lioresal PO 10 mg BID ALISA Administration Bisacodyl 10 mg 03/12/20 18:00 04/12/20 09:26 Bisacodyl 10 Mg Rect Supp WI 10 mg QDAY PRN Administration Bowel Movement Docusate Sodium 100 mg 04/03/20 12:00 04/18/20 09:40 Colace FEEDTUBE 100 mg BID ALISA Administration Enoxaparin Sodium 40 mg 03/20/20 22:00 04/17/20 21:55 Enoxaparin SUB-Q 40 mg QDAY@2200 ALISA Administration Protocol Glycopyrrolate 2 mg 04/16/20 20:00 04/18/20 09:40 Glycopyrrolate 1 Mg Tab PO 2 mg TID ALISA Administration Lansoprazole 30 mg 02/28/20 10:00 04/18/20 09:40 Prevacid Solutab FEEDTUBE 30 mg QDAY ALISA Administration Lidocaine 1 each 03/31/20 10:00 04/18/20 09:40 Lidoderm 5% TD 1 each QDAY ALISA Administration Lidocaine HCl 15 ml 04/15/20 14:00 04/18/20 09:40 Magic Mouthwash 30ml PO 15 ml TID ALISA Administration Magnesium Hydroxide 30 ml 04/12/20 19:20 04/13/20 14:42 Magnesium Hydroxide (Mom) Oral Liqd Udc PO 30 ml Q4H PRN Administration Constipation Metoprolol Tartrate 12.5 mg 02/24/20 22:00 04/18/20 09:42 Metoprolol PO 12.5 mg BID ALISA Administration Morphine Sulfate 2 mg 02/29/20 16:42 04/17/20 22:54 Morphine IV 2 mg Q4H PRN Administration Pain, Moderate (4-6) Pregabalin 150 mg 04/03/20 12:00 04/18/20 09:46 Pregabalin PO 150 mg BID ALISA Administration Scopolamine 1 each 03/03/20 14:00 04/17/20 09:16 Transderm-Scop TD 1 each Q3D ALISA Administration Senna 17.2 mg 04/03/20 22:00 04/17/20 21:59 Senokot PO Not Given QHS ALISA Simple Syrup 15 ml 02/26/20 11:16 Simple Syrup FEEDTUBE PRN PRN Hypoglycemia Simple Syrup 30 ml 02/26/20 11:16 Simple Syrup FEEDTUBE PRN PRN Hypoglycemia Sodium Bicarbonate 325 mg 02/26/20 11:16 Sodium Bicarbonate FEEDTUBE PRN PRN For Clogged Feeding Tube Sodium Hypochlorite 1 applic 03/31/20 13:00 04/18/20 09:43 Dakin's Half Strength TP 1 package BID ALISA Administration Tamsulosin HCl 0.4 mg 03/09/20 18:00 04/18/20 09:40 Tamsulosin 0.4 Mg Cap PO 0.4 mg QDAY ALISA Administration Zolpidem Tartrate 10 mg 03/31/20 20:15 04/17/20 21:59 Ambien PO 10 mg QHS PRN Administration Sleep Nutrition/Malnutrition Assess - Dietary Evaluation Nutrition/Malnutrition Findings: Nutrition Notes Start: 02/26/20 10:40 Freq: Status: Active Protocol: Document 04/11/20 15:00 AB (Rec: 04/11/20 15:04 AB [id number]) Co-Sign 04/11/20 15:00 LM Nutrition Notes Initial or Follow up Reassessment Current Diagnosis Decubitus(Pressure Ulcer), Sepsis,Respiratory Failure Other Pertinent Diagnosis COVID-19 (-), ALS, pneumonia, Hip/buttock PU Current Diet Vital AF 1.2 at 75ml/hr (goal rate) Labs/Tests Reviewed Pertinent Medications Reviewed Height 6 ft Weight 63 kg Henry Body Weight (kg) 80.90 BMI 18.8 Weight Status Appropriate Subjective/Other Information F/U for TF tolerance. Per RN, pt is tolerating TF at goal rate. Per chart, pt had BM . Percent of energy/protein needs met: 100%/100% Burn Absent Trauma Absent GI Symptoms None Skin Integrity/Comment Pressure Ulcer Stage 2 Current % PO Negligible Minimum of two criteria Yes Body Fat Depletion Mild depletion (non-severe) Muscle Mass Mild Depletion (non-severe) Reduced Bark Skinner Strength Measurably Reduced (severe) #3 Nutrition Diagnosis Malnutrition Diagnosis Progress(for reassessment Continues documentation) #2 Nutrition Diagnosis Inadequate oral intake Diagnosis Progress(for reassessment Continues documentation) #1 Nutrition Diagnosis Increased nutrient needs ( specify in comment below) Diagnosis Progress(for reassessment Continues documentation) Is patient on ventilator? Yes Is Patient Ambulatory and/or Out of Bed No REE-([place]-confined to bed) 1784.508 Kcal/Kg value to use for calculation 37 Approximate Energy Requirements Using 2331 kcal/Kg Calculation Used for Recommendations Kcal/kg Additional Notes Protein needs: 88-147 g (1.2-2 g/ kg ABW) Fluid: 1ml/kcal Nutrition Intervention Change Diet Order: Continue TF Nutrition Support: Vital AF 1.2 at 75ml/hr. Flush 200ml q4h For hyponatremia, flush 150 mL q4h Kcal 2,160 Protein (gm) 135 Fluid (mL) 1,460 Add Supplement/Snack (indicate name/kcal Will BID /protein ) Provides kCal: 190 Provides Protein (gm) 5 Goal #1 Meet at least 80% of energy and protein needs via TF Goal #2 Wound healing Anticipated Discharge Needs: Unable to determine at this time Follow-Up By: 04/18/20 Additional Comments F/U for TF tolerance
--- NOTE | 2020-04-18 13:20 | Progress Note ---
Subjective Principal diagnosis: Ac on Ch Hypercapnic & hypoxemic Resp Failure; Severe Sepsis; Jamar PNA; ALS Interval history: new to our service covid 19---negative 59-year-old male patient with significant past medical history of ALS, presented to ED with worsening shortness of breath since the morning [employer]. Patient was on a trilogy machine for breathing 18/11. EMS arrived, patient had O2 sats in the 80s. EMS attempted to place patient on their CPAP machine, however patient did not tolerate. Patient was admitted to the ICU with diagnosis of acute hypoxic respiratory failure and placed on BiPAP. Patient initially tolerated but later deteriorated with respiratory status. CTA chest showed no PE but significant for bilateral pneumonia. Doppler ultrasound also negative for DVT. COVID-19 test ordered. Due to persistent hypoxia, patient was intubated on 02/26/2020 at 1500. Patient now on mechanical ventilation in the ICU. 02/27/2020. Events of yesterday noted with asystole following V. fib arrest. P atient currently on AC mode rate 20, tidal volume 400, FiO2 50% and a PEEP of 6. Follow-up echocardiogram for elevated troponin. Cardiology suspects NSTEMI Type 2 in the setting of acute resp failure. Chest CTA and BLE Dopplers neg. we will discontinue Decadron given the Covid PCR is negative.. ID previously consulted. Also consult neurology with regards to ALS. CTAP (03-09-20)-- distended bladder nurse states 2 attempts to straight cath unsuccessful abd--distended condom cath wire drake 16F A/P retention ok for nurse to change drake Objective - Constitutional Vitals: Vital Signs - 12hr 04/18/20 04/18/20 04/18/20 02:00 03:00 03:55 Temperature 97.6 F Pulse Rate 120 H 104 H Pulse Rate [ From Monitor] Respiratory 18 10 L Rate Respiratory Rate [Back] Respiratory Rate [Throat] Blood Pressure 110/74 106/70 O2 Sat by Pulse 97 Oximetry 04/18/20 04/18/20 04/18/20 04:00 04:52 05:00 Temperature Pulse Rate 107 H 117 H 112 H Pulse Rate [ 118 H From Monitor] Respiratory 12 19 Rate Respiratory Rate [Back] Respiratory Rate [Throat] Blood Pressure 111/75 111/75 120/79 O2 Sat by Pulse 98 98 97 Oximetry 12/04/18/20 04/18/20 06:00 07:00 07:51 Temperature Pulse Rate 100 H 101 H 101 H Pulse Rate [ From Monitor] Respiratory 11 L 11 L Rate Respiratory Rate [Back] Respiratory Rate [Throat] Blood Pressure 102/72 107/75 107/75 O2 Sat by Pulse 98 99 99 Oximetry 04/18/20 04/18/20 04/18/20 08:00 09:00 09:42 Temperature 97.8 F Pulse Rate 107 H 106 H 114 H Pulse Rate [ From Monitor] Respiratory 16 18 Rate Respiratory Rate [Back] Respiratory Rate [Throat] Blood Pressure 108/74 107/68 107/68 O2 Sat by Pulse 98 97 Oximetry 04/18/20 04/18/20 04/18/20 10:00 11:00 11:08 Temperature Pulse Rate 110 H 99 H 102 H Pulse Rate [ From Monitor] Respiratory 13 18 18 Rate Respiratory 20 Rate [Back] Respiratory 20 Rate [Throat] Blood Pressure 108/72 88/65 97/63 O2 Sat by Pulse 96 97 99 Oximetry - Labs CBC & Chem 7: 04/18/20 04:01 04/18/20 04:01 Labs: Abnormal lab results 04/18/20 04/18/20 04/18/20 Range/Units 00:23 04:01 04:01 WBC 15.3 H (4.5-11.0) K/mm3 Hgb 10.1 L (11.8-15.2) gm/dl Hct 31.9 L (35.5-45.6) % MCV 82 L (84-94) fl MCH 26 L (28-32) pg RDW 17.2 H (13.2-15.2) % Plt Count 665 H (140-440) K/mm3 Lymph % (Auto) 12.9 L (13.4-35.0) % Cook # (Auto) 1.1 H (0.0-0.8) K/mm3 Seg Neutrophils % 78.0 H (40.0-70.0) % Seg Neutrophils # 11.9 H (1.8-7.7) K/mm3 Chloride 97.0 L (98-107) mmol/L Carbon Dioxide 38 H (22-30) mmol/L Creatinine < 0.2 L (0.8-1.3) mg/dL Glucose 117 H (75-100) mg/dL POC Glucose 125 H (70-105) mg/dL 04/18/20 Range/Units 11:29 WBC (4.5-11.0) K/mm3 Hgb (11.8-15.2) gm/dl Hct (35.5-45.6) % MCV (84-94) fl MCH (28-32) pg RDW (13.2-15.2) % Plt Count (140-440) K/mm3 Lymph % (Auto) (13.4-35.0) % Cook # (Auto) (0.0-0.8) K/mm3 Seg Neutrophils % (40.0-70.0) % Seg Neutrophils # (1.8-7.7) K/mm3 Chloride (98-107) mmol/L Carbon Dioxide (22-30) mmol/L Creatinine (0.8-1.3) mg/dL Glucose (75-100) mg/dL POC Glucose 136 H (70-105) mg/dL Medications & Allergies - Medications Allergies/Adverse Reactions: Allergies buprenorphine [From Butrans] Allergy (Verified 02/24/20 08:37) Unknown fentanyl Allergy (Verified 02/24/20 08:37) Unknown oxycodone [From OxyContin] Allergy (Verified 02/24/20 08:37) Unknown Home Medications: Home Medications Medication Instructions Recorded Confirmed Last Taken Type Baclofen 10 mg PO BID 02/24/20 02/24/20 Unknown History Doxazosin 4 mg PO BID 02/24/20 02/24/20 Unknown History Etodolac ER 500 mg PO BID 02/24/20 02/24/20 Unknown History Lyrica 150 mg PO BID 02/24/20 02/24/20 Unknown History Valium 5 mg PO DAILY 02/24/20 02/24/20 Unknown History Active Medications: Generic Name Dose Route Start Last Admin Trade Name Freq PRN Reason Stop Dose Admin Acetaminophen 650 mg 02/24/20 15:13 04/14/20 22:25 Tylenol PO 650 mg Q4H PRN Administration Pain, Mild (1-3) Albuterol 2.5 mg 02/24/20 15:13 Proventil IH Q4HRT PRN Shortness Of Breath Alprazolam 0.5 mg 03/30/20 14:19 04/18/20 09:40 Xanax PO 0.5 mg Q8H PRN Administration Anxiety Lipase/Protease/Amylase 1 each 02/26/20 11:16 Pancreedy Rubio 10,500 Unit FEEDTUBE PRN PRN For Clogged Feeding Tube Baclofen 10 mg 04/03/20 12:00 04/18/20 09:41 Lioresal PO 10 mg BID ALISA Administration Bisacodyl 10 mg 03/12/20 18:00 04/12/20 09:26 Bisacodyl 10 Mg Rect Supp [place] 10 mg QDAY PRN Administration Bowel Movement Docusate Sodium 100 mg 04/03/20 12:00 04/18/20 09:40 Colace FEEDTUBE 100 mg BID ALISA Administration Enoxaparin Sodium 40 mg 03/20/20 22:00 04/17/20 21:55 Enoxaparin SUB-Q 40 mg QDAY@2200 ALISA Administration Protocol Glycopyrrolate 2 mg 04/16/20 20:00 04/18/20 09:40 Glycopyrrolate 1 Mg Tab PO 2 mg TID ALISA Administration Lansoprazole 30 mg 02/28/20 10:00 04/18/20 09:40 Prevacid Solutab FEEDTUBE 30 mg QDAY ALISA Administration Lidocaine 1 each 03/31/20 10:00 04/18/20 09:40 Lidoderm 5% TD 1 each QDAY ALISA Administration Lidocaine HCl 15 ml 04/15/20 14:00 04/18/20 09:40 Magic Mouthwash 30ml PO 15 ml TID ALISA Administration Magnesium Hydroxide 30 ml 04/12/20 19:20 04/13/20 14:42 Magnesium Hydroxide (Mom) Oral Liqd Udc PO 30 ml Q4H PRN Administration Constipation Metoprolol Tartrate 12.5 mg 02/24/20 22:00 04/18/20 09:42 Metoprolol PO 12.5 mg BID ALISA Administration Morphine Sulfate 2 mg 02/29/20 16:42 04/17/20 22:54 Morphine IV 2 mg Q4H PRN Administration Pain, Moderate (4-6) Pregabalin 150 mg 04/03/20 12:00 04/18/20 09:46 Pregabalin PO 150 mg BID ALISA Administration Scopolamine 1 each 03/03/20 14:00 04/17/20 09:16 Transderm-Scop TD 1 each Q3D ALISA Administration Senna 17.2 mg 04/03/20 22:00 04/17/20 21:59 Senokot PO Not Given QHS ALISA Simple Syrup 15 ml 02/26/20 11:16 Simple Syrup FEEDTUBE PRN PRN Hypoglycemia Simple Syrup 30 ml 02/26/20 11:16 Simple Syrup FEEDTUBE PRN PRN Hypoglycemia Sodium Bicarbonate 325 mg 02/26/20 11:16 Sodium Bicarbonate FEEDTUBE PRN PRN For Clogged Feeding Tube Sodium Hypochlorite 1 applic 03/31/20 13:00 04/18/20 09:43 Dakin's Half Strength TP 1 package BID ALISA Administration Tamsulosin HCl 0.4 mg 03/09/20 18:00 04/18/20 09:40 Tamsulosin 0.4 Mg Cap PO 0.4 mg QDAY ALISA Administration Zolpidem Tartrate 10 mg 03/31/20 20:15 04/17/20 21:59 Ambien PO 10 mg QHS PRN Administration Sleep HEART Score - HEART Score Troponin: Troponin T 0.090 ng/mL (0.00-0.029) H 03/28/20 17:17
[2020-04-18] MEDS: ENOXAPARIN 40 MG/0.4 ML INJ SUB-Q SCH (21:11)
[2020-04-18] MEDS: SENNOSIDES 8.6 MG TAB PO SCH (21:14)
[2020-04-18] MEDS: ZOLPIDEM 5 MG TAB PO PRN (21:14)
[2020-04-18] MEDS: ACETAMINOPHEN 325 MG TAB PO PRN (23:39)
[2020-04-19] MEDS: MORPHINE 2 MG/1 ML INJ IV PRN ×3 (03:28→17:00)
[2020-04-19] MEDS: ACETAMINOPHEN 325 MG TAB PO PRN ×2 (04:34→20:27)
[2020-04-19 08:18] LABS: Basophils # (Auto) 0.1 K/mm3 (0.0-0.1); Basophils % (Auto) 0.4 % (0.0-1.8); Eosinophils # (Auto) 0.1 K/mm3 (0.0-0.4); Eosinophils % (Auto) 0.7 % (0.0-4.3); Hematocrit 31.1 % (35.5-45.6); Hemoglobin 9.8 gm/dl (11.8-15.2); Lymphocytes # (Auto) 0.8 K/mm3 (1.2-5.4); Lymphocytes % (Auto) 6.5 % (13.4-35.0); Mean Corpuscular HGB Conc 32 % (32-34); Mean Corpuscular Volume 82 fl (84-94); Monocytes # (Auto) 0.7 K/mm3 (0.0-0.8); Monocytes % (Auto) 5.7 % (0.0-7.3); Platelet Count 549 K/mm3 (140-440); Red Blood Count 3.78 M/mm3 (3.65-5.03); Red Cell Distribution Width 17.2 % (13.2-15.2)
[2020-04-19 08:19] LABS: Blood Urea Nitrogen 15 mg/dL (9-20); Calcium 8.9 mg/dL (8.4-10.2); Hemolysis Index 3
[2020-04-19 08:37] LABS: BUN/Creatinine Ratio 75
[2020-04-19] MEDS: GLYCOPYRROLATE 1 MG TAB PO SCH ×3 (08:56→20:29)
[2020-04-19] MEDS: MAGIC MOUTHWASH 30ML PO SCH ×3 (08:59→20:29)
[2020-04-19] MEDS: BACLOFEN 10 MG TAB PO SCH ×2 (09:55→21:57)
[2020-04-19] MEDS: LIDOCAINE 5% 1 EACH PATCH TD SCH (09:55)
[2020-04-19] MEDS: METOPROLOL TARTRATE 25 MG TAB PO SCH ×2 (09:55→21:57)
[2020-04-19] MEDS: LANSOPRAZOLE 30 MG SOLUTAB FEEDTUBE SCH (09:56)
[2020-04-19] MEDS: ALPRAZolam 0.5 MG TAB PO PRN ×2 (09:56→21:58)
[2020-04-19] MEDS: DOCUSATE SODIUM 100 MG/10 ML ORAL LIQD FEEDTUBE SCH ×2 (09:56→21:53)
[2020-04-19] MEDS: PREGABALIN 75 MG CAP PO SCH ×2 (09:57→21:57)
[2020-04-19] MEDS: SODIUM HYPOCHLORITE, DAKIN'S 1/2 STRENGTH (0.25%) 473 ML TOPICAL SOLN TP SCH ×2 (09:58→21:55)
[2020-04-19] MEDS: TAMSULOSIN 0.4 MG CAP PO SCH (09:58)
--- NOTE | 2020-04-19 13:24 | Progress Note ---
Assessment and Plan Assessment and plan: --Acute hypoxic hypercapnic respiratory failure; S/p tracheostomy on ventilatory support etiology secondary to sepsis, ALS, multifocal pneumonia (Covid negative). Pulmonary following --ALS --Oral thrush Nystatin/Magic mouthwash swish and spit --Constipation; Patient already received Dulcolax suppository and Colace Received milk of magnesia, with relief --History of ALS - Stable --Elevated D-dimers; imaging studies negative for PE and DVT --Bilateral pneumonia; probably community-acquired Completed the treatment, continue supportive care --Sepsis secondary to pneumonia; completed the treatment resolved --Elevated troponin non-ST elevation CO type II Continue current management --Febrile illness; resolved ,secondary to pneumonia Complete antibiotics , resolved --DVT prophylaxis; Lovenox. 02/25/2020. CTA of the chest reveals no PE but does illustrate the bilateral pneumonia. Doppler ultrasound also negative for DVT. Blood cultures are pending. Await COVID-19 testing. Patient currently requiring BiPAP IPAP 24/EPAP 6 with FiO2 of 25%. Continue O2 and BiPAP as clinically indicated. ID and pulmonary consulted. 02/26/2020. Blood cultures are negative x48 hours and Covid testing negative as well. Continue antibiotics per ID recommendations for community-acquired bilate ral pneumonia. Cardiology consultation for elevated troponin. Check echocardiogram. 02/27/2020. Events of yesterday noted with asystole following V. fib arrest. Patient currently on AC mode rate 20, tidal volume 400, FiO2 50% and a PEEP of 6. Follow-up echocardiogram for elevated troponin. Cardiology suspects NSTEMI Type 2 in the setting of acute resp failure. Chest CTA and BLE Dopplers neg. we will discontinue Decadron given the Covid PCR is negative. 02/28/2020. I spoke with the sister Felisa Eli who is the power of elevated work platform operator regarding advanced directives and she instructed me that she would like to continue with aggressive care at this time. I informed her of the guarded prognosis and high mortality/morbidity and she voiced understanding. Patient currently with AC mode ventilation rate 18, tidal volume 400, FiO2 40% and a PEEP of 6. Continue antibiotics for pneumonia. ID previously consulted. Also consult neurology with regards to ALS. 02/29/2020; patient is intubated and on CPAP patient is alert and oriented. Patient has ALS. Dr. Álvarez spoke with his sister and she wants aggressive care. Continue antibiotics for pneumonia. Neurology consulted for ALS. Progno sis poor 03/01/2020; patient is intubated and on CPAP, patient is alert and oriented. I spoke with his 2 sisters about the management plan. 03/02/2020; patient is intubated and on CPAP. Patient was alert and oriented. I spoke with Dr. mohr and he thinks patient may need mechanical ventilat ion, likely his disease progressed. Dr. Flowers did debridement this morning. 03/03/2020; patient is intubated and on CPAP, patient was on trilogy and BiPAP at home. Patient has ALS. on spontaneous breathing trial. Patient is alert and oriented but quadriplegic. Patient has severe bilateral pneumonia and is on cefepime and Vanco, ID is following. Patient has sacral decubitus ulcer and debridement was done by Dr. Flowers and there is no osteomyelitis. 03/05. Patient still on broad-spectrum antibiotics. Status post sacral decubitus ulcer debridements-no osteomyelitis. Patient is on AC 25/400/30% PEEP 5. No blood gas results today. 03/06. Plan for tracheostomy by surgery. Still remains intubated. Labs reviewed-sodium 150. Started on free water 200 every 8hr. trend sodium. 03/07: s/p trach placement today, patient placed back on mechanical ventilation with trach. Plan to resume tube feeding with NG tube. Continue to monitor vitals, monitor BMP. 03/08: Patient noted to have distended abdomen with low urinary output. Obtain bladder scan rule out urine retention, UA and urine culture, continue to follow clinically. 03/09: Patient noted to have low blood pressure with SBP as low as 70s. Ordered for 500 mils normal saline bolus. CT abdomen showed bladder outlet obstruction, urology consulted. 03/10: placed on drake by urology o/n, improved urine outpt. cont to monitor BMP. resuded TF - cont free water with TF. wean off from vent as tolerated. 03/11: Vitals stable. cont TF, wean off from vent as tolerated. start on 1/2 NS for hypernatremia - follow BMP 03/12: wean off vent as tolerated, plan for speech eval, cont Tf for now, cont iv fluid 03/13: unable to wean off from vent, unable to do speech therapy eval. will need PEG tube, cont supportive care for now, cont NG tube feeding 03/14: consulted GI for PEg placemnet, cont supportive care. remains on vent at night 03/15: Discussed with GI, plan for PEG tube placement possibly tomorrow. Continue supportive care and wean off from vent as tolerated. Hold Lovenox dose tonight. 03/16: family didnot consent for PEG placement yesterday. I spoke with the daughter today and she is now agreeable for PEG tube. I explained the necessity of the procedure with RN to the patient also and he nodded started on tube feeding, for the procedure. will cont supportive care. planned for PEG tube placement tomorrow. 03/17: s/p PEG placement today, patient tolerated well, cont supportive care 03/18: Started on tube feeding with new PEG tube, continue to wean off vent as tolerated 03/19: cont to monitor with supportive care, wean off vent as tolerated 03/20: Continue to wean off vent as tolerated -but failing weaning trial. Still requiring vent support at night. Currently on PEG tube for tube feed. 03/21. Pt with PSV trials with FiO@ 30%, PEEP 6, PS 10. Currently on PEG tube for tube feed. 03/22/2020. Continue PSV trials per pulmonary. Continue bronchodilators. Patient tolerating tube feedings. Continue Robinul for secretion control. 03/23/2020. Continue PSV trials per pulmonary. Continue bronchodilators. Continue Scopolamine and Robinul for secretion control. Trach care/airway management. Mobility protocols for pressure ulcer prophylaxis. LTAC evaluation per case management 03/24/2020. Continue PSV trials with current settings pressure support 10, PEEP 6 and FiO2 30%. Continue bronchodilators/nebulizer. Continue Scopolamine and Robinul for secretion control. Trach care/airway management. Mobility protocols for pressure ulcer prophylaxis. LTAC evaluation per case management 03/25/2020. Pulmonary to proceed with T-piece trials today. Continue bronchodi lators/nebulizer. Continue Scopolamine and Robinul for secretion control. Trach care/airway management. Mobility protocols for pressure ulcer prophylaxis. 03/26/2020. Patient currently with PSV 10/6 at FiO2 of 30%. Continue weaning and T-piece trials per protocol. Continue bronchodilators/nebulizer. Continue Scopolamine and Robinul for secretion control. Trach care/airway management. Mobility protocols for pressure ulcer prophylaxis. Continue tube feeding with aspiration precautions. 03/27/2020. Patient currently with PSV 01/31 at FiO2 of 30%. Continue weaning and T-piece trials per protocol. Continue bronchodilators/nebulizer. Continue Scopolamine and Robinul for secretion control. Trach care/airway management. Mobility protocols for pressure ulcer prophylaxis. Continue tube feeding with aspiration precautions. 03/28. Had temp 100.7F. He has been off antibiotics. Will send blood culture, ua, urine culture and chest xray. Had chest pain overnight and trop was elevated as well. Cardiology to evaluate 03/29. Has back pain due to position. He mentions his chest pain is positional. Has no other complaints. Still on mechanical ventilation 03/30. No chest pain today. Labs reviewed. Discussed chest pain with cardiology and team advised no further work up at this time. Can follow up with cardiology in the office after hospitalization 03/31. Lidocaine patch for lower back pain. 04/01. Discharge planning underway. CM notes reviewed. Discussed with daughter 04/02 - . CM trying to arrange discharge. Continue PSV trials. Discussed with patients significant other 04/04/2020; CM is working for discharge arrangement. Continue PSV trials. 04/05/2020; patient was seen and evaluated this morning and no change from baseline. Continue with PSV trials. Follow with online media buyer for discharge planning. 04/06/2020;patient was seen and evaluated this morning and no change from baseline. Continue with PSV trials. Follow with online media buyer for discharge planning. 04/07/2020; patient was seen and evaluated this morning and no change from baseline. Continue with PSV trials. Follow with online media buyer for discharge planning. 04/08/2020; patient is vent dependent. Discharge is per online media buyer. 04/09/2020 patient is vent dependent, possible LTAC placement 04/10/2020; tracheostomy on vent, vent dependent pending LTAC placement 04/11/2020; clinically no change, tracheostomy on ventilatory support, wean as tolerated, awaiting placement 04/12/2020; remains on ventilatory support, unable to wean, patient wants to see a speech therapist for sound box However we cannot try that as long as he is on ventilatory support, once he is weaned off vent We will consult speech therapist, plan of care reviewed with the patient and his nurse 04/14/2020; clinically no change, on ventilatory support, complains of constipation, milk of magnesia Closely monitor the patient and adjust the management as needed 04/15/2020; patient has some oral thrush on the tongue, will give Magic mouthwash/nystatin swish and spit Wean off vent as tolerated 04/16 patient is alert and oriented, unable to comprehend what he is trying to tell but appears to complain of some pain, no acute events overnight, all interdisciplinary notes reviewed. Waiting for LTAC versus snf f acility placement 04/17/2020. Continue supportive care with mechanical ventilation. Patient currently on AC mode rate 10, tidal volume 400 FiO2 30% with a PEEP of 6. Discharge planning per case management. 04/18/2020. Patient remains on mechanical ventilation AC mode rate 10, tidal volume 400, FiO2 30% and PEEP of 6. Continue spontaneous breathing trials as tolerated. Previously, patient was considered for discharge home with skilled staff providing care for 12 hours 7 days/week. Continue discussed with case management discharge planning. 04/19/20. Patient remains on mechanical ventilation AC mode rate 10, tidal volume 400, FiO2 30% and PEEP of 6. Continue spontaneous breathing trials as tolerated. The high probability of a clinically significant, sudden or life threatening deterioration of the [cardiac and respiratory] system(s) required my full and direct attention, intervention and personal management. The aggregate critical care time was [32] minutes. This time is in addition to time spent performing reported procedures but includes the following: [x] Data Review and interpretation [x] Patient assessment and monitoring of vital signs [x] Documentation [x] Medication orders and management History Interval history: 59-year-old male patient with significant past medical history of ALS, presented to ED with worsening shortness of breath since the morning [employer]. Patient was on a trilogy machine for breathing 18/11. EMS arrived, patient had O2 sats in the 80s. EMS attempted to place patient on their CPAP machine, however patient did not tolerate. Patient was admitted to the ICU with diagnosis of acute hypoxic respiratory failure and placed on BiPAP. Patient initially tolerated but later deteriorated with respiratory status. CTA chest showed no PE but significant for bilateral pneumonia. Doppler ultrasound also negative for DVT. COVID-19 test ordered. Due to persistent hypoxia, patient was intubated on 02/26/2020 at 1500. Patient now on mechanical ventilation in the ICU s/p trach placement and now unable to wean off from the mechanical ventilation. Patient now status post PEG placement for tube feeding. Pending long-term placement -LTAC versus SNF Hospitalist Physical - Constitutional Vitals: Temp Pulse Resp BP Pulse Ox 98.4 F 112 H 26 H 95/62 100 04/19/20 04:00 04/19/20 11:37 04/19/20 11:37 04/19/20 11:37 04/19/20 11:37 General appearance: Present: no acute distress, cachectic - EENT Eyes: Present: PERRL, EOM intact ENT: hearing intact, clear oral mucosa, dentition normal - Neck Neck: Present: supple, normal ROM - Respiratory Respiratory effort: normal Respiratory: bilateral: CTA - Cardiovascular Rhythm: regular Heart Sounds: Present: S1 & S2. Absent: gallop, rub - Extremities Extremities: no ischemia, No edema, Full ROM - Abdominal General gastrointestinal: soft, non-tender, non-distended, normal bowel sounds - Integumentary Integumentary: Present: clear, warm, dry - Neurologic Neurologic: CNII-XII intact, moves all extremities HEART Score - HEART Score Troponin: Troponin T 0.090 ng/mL (0.00-0.029) H 03/28/20 17:17 Results - Labs CBC & Chem 7: 04/19/20 06:51 04/19/20 06:51 Labs: Laboratory Last Values WBC 12.2 K/mm3 (4.5-11.0) H 04/19/20 06:51 RBC 3.78 M/mm3 (3.65-5.03) 04/19/20 06:51 Hgb 9.8 gm/dl (11.8-15.2) L 04/19/20 06:51 Hct 31.1 % (35.5-45.6) L 04/19/20 06:51 MCV 82 fl (84-94) L 04/19/20 06:51 MCH 26 pg (28-32) L 04/19/20 06:51 MCHC 32 % (32-34) 04/19/20 06:51 RDW 17.2 % (13.2-15.2) H 04/19/20 06:51 Plt Count 549 K/mm3 (140-440) H 04/19/20 06:51 Lymph % (Auto) 6.5 % (13.4-35.0) L 04/19/20 06:51 Phillips % (Auto) 5.7 % (0.0-7.3) 04/19/20 06:51 Eos % (Auto) 0.7 % (0.0-4.3) 04/19/20 06:51 Baso % (Auto) 0.4 % (0.0-1.8) 04/19/20 06:51 Lymph # (Auto) 0.8 K/mm3 (1.2-5.4) L 04/19/20 06:51 Phillips # (Auto) 0.7 K/mm3 (0.0-0.8) 04/19/20 06:51 Eos # (Auto) 0.1 K/mm3 (0.0-0.4) 04/19/20 06:51 Baso # (Auto) 0.1 K/mm3 (0.0-0.1) 04/19/20 06:51 Add Manual Diff Complete 04/12/20 09:07 Total Counted 100 04/12/20 09:07 Seg Neuts % (Manual) 86.0 % (40.0-70.0) H 04/12/20 09:07 Band Neutrophils % 0 % 03/28/20 10:28 Seg Neutrophils % 86.7 % (40.0-70.0) H 04/19/20 06:51 Lymphocytes % (Manual) 7.0 % (13.4-35.0) L 04/12/20 09:07 Reactive Lymphs % (Man) 0 % 03/28/20 10:28 Monocytes % (Manual) 3.0 % (0.0-7.3) 04/12/20 09:07 Eosinophils % (Manual) 1.0 % (0.0-4.3) 04/12/20 09:07 Basophils % (Manual) 1.0 % (0.0-1.8) 03/28/20 10:28 Metamyelocytes % 3.0 % 04/12/20 09:07 Myelocytes % 0 % 03/28/20 10:28 Promyelocytes % 0 % 03/28/20 10:28 Blast Cells % 0 % 03/28/20 10:28 Nucleated RBC % Not Reportable 04/12/20 09:07 Seg Neutrophils # Man 11.3 K/mm3 (1.8-7.7) H 04/12/20 09:07 Seg Neutrophils # 10.6 K/mm3 (1.8-7.7) H 04/19/20 06:51 Band Neutrophils # 0.0 K/mm3 04/12/20 09:07 Lymphocytes # (Manual) 0.9 K/mm3 (1.2-5.4) L 04/12/20 09:07 Abs React Lymphs (Man) 0.0 K/mm3 04/12/20 09:07 Monocytes # (Manual) 0.4 K/mm3 (0.0-0.8) 04/12/20 09:07 Eosinophils # (Manual) 0.1 K/mm3 (0.0-0.4) 04/12/20 09:07 Basophils # (Manual) 0.0 K/mm3 (0.0-0.1) 04/12/20 09:07 Metamyelocytes # 0.4 K/mm3 04/12/20 09:07 Myelocytes # 0.0 K/mm3 04/12/20 09:07 Promyelocytes # 0.0 K/mm3 04/12/20 09:07 Blast Cells # 0.0 K/mm3 04/12/20 09:07 WBC Morphology Not Reportable 04/12/20 09:07 Hypersegmented Neuts Not Reportable 04/12/20 09:07 Hyposegmented Neuts Not Reportable 04/12/20 09:07 Hypogranular Neuts Not Reportable 04/12/20 09:07 Smudge Cells Not Reportable 04/12/20 09:07 Toxic Granulation Not Reportable 04/12/20 09:07 Toxic Vacuolation Not Reportable 04/12/20 09:07 Dohle Bodies Not Reportable 04/12/20 09:07 Pelger-Huet Anomaly Not Reportable 04/12/20 09:07 Robert Rods Not Reportable 04/12/20 09:07 Platelet Estimate Consistent w auto 04/12/20 09:07 Clumped Platelets Not Reportable 04/12/20 09:07 Plt Clumps, EDTA Not Reportable 04/12/20 09:07 Large Platelets Few 04/12/20 09:07 Giant Platelets Not Reportable 04/12/20 09:07 Platelet Satelliting Not Reportable 04/12/20 09:07 Plt Morphology Comment Not Reportable 04/12/20 09:07 RBC Morphology Not Reportable 04/12/20 09:07 Dimorphic RBCs Not Reportable 04/12/20 09:07 Polychromasia Few 04/12/20 09:07 Hypochromasia Not Reportable 04/12/20 09:07 Poikilocytosis Not Reportable 04/12/20 09:07 Anisocytosis 1+ 04/12/20 09:07 Microcytosis Not Reportable 04/12/20 09:07 Macrocytosis Not Reportable 04/12/20 09:07 Spherocytes Not Reportable 04/12/20 09:07 Pappenheimer Bodies Not Reportable 04/12/20 09:07 Sickle Cells Not Reportable 04/12/20 09:07 Target Cells Not Reportable 04/12/20 09:07 Tear Drop Cells Not Reportable 04/12/20 09:07 Ovalocytes Not Reportable 04/12/20 09:07 Stomatocytes Few 03/17/20 04:40 Helmet Cells Not Reportable 04/12/20 09:07 Gregory-Moffett Bodies Not Reportable 04/12/20 09:07 [place] Rings Not Reportable 04/12/20 09:07 [place] Cells Not Reportable 04/12/20 09:07 Bite Cells Not Reportable 04/12/20 09:07 Crenated Cell Not Reportable 04/12/20 09:07 Elliptocytes Not Reportable 04/12/20 09:07 Acanthocytes (Spur) Not Reportable 04/12/20 09:07 Rouleaux Not Reportable 04/12/20 09:07 Hemoglobin C Crystals Not Reportable 04/12/20 09:07 Schistocytes Not Reportable 04/12/20 09:07 Malaria parasites Not Reportable 04/12/20 09:07 Colton Bodies Not Reportable 04/12/20 09:07 Hem Pathologist Commnt No 04/12/20 09:07 PT 15.6 Sec. (12.2-14.9) H 02/24/20 09:19 INR 1.21 (0.87-1.13) H 02/24/20 09:19 APTT 25.4 Sec. (24.2-36.6) 02/24/20 09:19 D-Dimer 1311.96 ng/mlDDU (0-234) H 02/24/20 09:19 ABG pH 7.371 (7.320-7.450) 03/08/20 12:34 POC ABG pCO2 63.1 mmHg (32.0-48.0) H 03/08/20 12:34 ABG pCO2 60.1 mm Hg 03/06/20 04:34 POC ABG pO2 90.5 mmHg (83-108) 03/08/20 12:34 ABG pO2 88.6 mm Hg (80.0-90.0) 03/06/20 04:34 POC ABG HCO3 35.7 03/08/20 12:34 ABG HCO3 37.9 mmol/L (20.0-26.0) H 03/06/20 04:34 ABG O2 Saturation 97.0 % (95.0-99.0) 03/06/20 04:34 ABG O2 Content 14.3 (0.0-44) 03/06/20 04:34 POC ABG Base Excess 8.7 03/08/20 12:34 ABG Base Excess 11.4 mmol/L (-2.0-3.0) H 03/06/20 04:34 ABG Hemoglobin 10.9 (12.0-17.5) L 03/08/20 12:34 ABG Oxyhemoglobin 95.9 (94-98) 03/08/20 12:34 ABG Carboxyhemoglobin 1.7 % (0.0-5.0) 03/06/20 04:34 ABG Methemoglobin 0.3 (0.0-1.5) 03/08/20 12:34 ABG Sodium 143.6 mmol/L (136.0-145.0) 03/08/20 12:34 ABG Potassium 3.8 mmol/L (3.40-4.50) 03/08/20 12:34 ABG Chloride 102.0 mmol/L (98-107) 03/08/20 12:34 ABG Glucose 176 mg/dL (65-95) H 03/08/20 12:34 Oxyhemoglobin 94.7 % (95.0-99.0) L 03/06/20 04:34 Carboxyhemoglobin 0.7 (0.5-1.5) 03/08/20 12:34 FiO2 30 03/08/20 12:34 Sodium 139 mmol/L (137-145) 04/19/20 06:51 Potassium 4.4 mmol/L (3.6-5.0) 04/19/20 06:51 Chloride 97.8 mmol/L (98-107) L 04/19/20 06:51 Carbon Dioxide 38 mmol/L (22-30) H 04/19/20 06:51 Anion Gap 8 mmol/L 04/19/20 06:51 BUN 15 mg/dL (9-20) 04/19/20 06:51 Creatinine < 0.2 mg/dL (0.8-1.3) L 04/19/20 06:51 Estimated GFR > 60 ml/min 04/19/20 06:51 BUN/Creatinine Ratio 75 % 04/19/20 06:51 Glucose 123 mg/dL (75-100) H 04/19/20 06:51 POC Glucose 104 mg/dL (70-105) 04/19/20 05:35 Lactic Acid 1.00 mmol/L (0.7-2.0) 02/24/20 12:07 Calcium 8.9 mg/dL (8.4-10.2) 04/19/20 06:51 Phosphorus 3.30 mg/dL (2.5-4.5) 03/29/20 14:35 Magnesium 1.90 mg/dL (1.7-2.3) 04/12/20 09:07 Ferritin 1715.0 ng/mL (30.0-300.0) H 02/24/20 10:01 Total Bilirubin 0.20 mg/dL (0.1-1.2) 04/12/20 09:07 AST 15 units/L (5-40) 04/12/20 09:07 ALT 15 units/L (7-56) 04/12/20 09:07 Alkaline Phosphatase 62 units/L (35-129) 04/12/20 09:07 Lactate Dehydrogenase 303 units/L (91-180) H 02/24/20 09:19 Total Creatine Kinase 47 units/L (55-170) L 03/28/20 17:17 CK-MB (CK-2) 2.2 ng/mL (0.0-4.0) 03/28/20 17:17 CK-MB (CK-2) Rel Index 4.6 (0-4) H 03/28/20 17:17 Troponin T 0.090 ng/mL (0.00-0.029) H 03/28/20 17:17 C-Reactive Protein 4.70 mg/dL (0.00-1.30) H 02/28/20 11:05 NT-Pro-B Natriuret Pep 48.30 pg/mL (0-900) 02/24/20 09:19 Total Protein 6.7 g/dL (6.3-8.2) 04/12/20 09:07 Albumin 2.7 g/dL (3.9-5) L 04/12/20 09:07 Albumin/Globulin Ratio 0.7 % 04/12/20 09:07 Prealbumin 0.090 g/L (0.200-0.400) L 02/28/20 12:54 Triglycerides 34 mg/dL (2-149) 03/22/20 18:00 Cholesterol 104 mg/dL (50-199) 03/22/20 18:00 LDL Cholesterol Direct 54 mg/dL (50-130) 03/22/20 18:00 HDL Cholesterol 40 mg/dL (40-59) 03/22/20 18:00 Cholesterol/HDL Ratio 2.60 % 03/22/20 18:00 Procalcitonin < 0.05 ng/mL (<0.15) 03/28/20 17:12 Arterial Blood Glucose 176 mg/dL (65-95) H 03/08/20 12:34 Arterial Blood Ionized Calcium 4.5 mg/dL (4.6-5.3) L 03/08/20 12:34 Urine Color Yellow (Yellow) 03/28/20 11:36 Urine Turbidity Hazy (Clear) 03/28/20 11:36 Urine pH 5.0 (5.0-7.0) 03/28/20 11:36 Ur Specific Royal 1.026 (1.003-1.030) 03/28/20 11:36 Urine Protein 100 mg/dl mg/dL (Negative) 03/28/20 11:36 Urine Glucose (UA) Neg mg/dL (Negative) 03/28/20 11:36 Urine Ketones Neg mg/dL (Negative) 03/28/20 11:36 Urine Blood Neg (Negative) 03/28/20 11:36 Urine Nitrite Neg (Negative) 03/28/20 11:36 Urine Bilirubin Neg (Negative) 03/28/20 11:36 Urine Urobilinogen 4.0 mg/dL (<2.0) 03/28/20 11:36 Ur Leukocyte Esterase Mod (Negative) 03/28/20 11:36 Urine WBC (Auto) 39.0 /HPF (0.0-6.0) H 03/28/20 11:36 Urine RBC (Auto) 16.0 /HPF (0.0-6.0) 03/28/20 11:36 U Epithel Cells (Auto) < 1.0 /HPF (0-13.0) 03/08/20 08:57 Urine Bacteria (Auto) 2+ /HPF (Negative) 03/28/20 11:36 Urine Mucus 3+ /HPF 03/28/20 11:36 Urine Yeast (Budding) 2+ /HPF 03/28/20 11:36 Vancomycin Trough 8.0 ug/mL (5.0-20.0) 03/04/20 08:59 Coronavirus (PCR) Negative (Negative) 02/25/20 09:03 - Diagnostic Impressions Diagnostic Impressions: Echocardiogram 02/26/20 10:41 Transthoracic Echocardiogram Indication: Elevated Trop BP: 116/75 HR: 85 Conclusions *Global left ventricular wall motion and contractility are within normal limits. *The estimated ejection fraction is 50-55%. *Abnormal left ventricular diastolic filling is observed, consistent with impaired relaxation. *There is no pericardial effusion. Findings Left Ventricle: The left ventricular chamber size is normal. Global left ventricular wall motion and contractility are within normal limits. Global left ventricular systolic function is normal. The estimated ejection fraction is 50-55%. Abnormal left ventricular diastolic filling is observed, consistent with impaired relaxation. Left Atrium: The left atrial chamber size is normal. Right Ventricle: The right ventricular cavity size is normal. Right Atrium: The right atrial cavity size is normal. Aortic Valve: Mild aortic leaflet calcification is visualized. There is no evidence of aortic regurgitation. Mitral Valve: The mitral valve leaflets are mildly thickened. There is no evidence of mitral regurgitation. Tricuspid Valve: The tricuspid valve leaflets are normal. There is trace tricuspid regurgitation. The right ventricular systolic pressure is calculated at 29 mmHg. Pulmonic Valve: The pulmonic valve is not well visualized. Pericardium: There is no pericardial effusion. Aorta: The aorta appears normal. Venous: The inferior vena cava is dilated. There is less than 50% respiratory change in the inferior vena cava dimension. Measurements Chambers 2D Name Value Normal Range IVSd (2D) 0.97 cm (0.6 - 1.1) LVPWd (2D) 0.93 cm (0.6 - 1.1) LVIDd (2D) 4 cm (3.7 - 5.6) LVIDs (2D) 2.73 cm (2 - 3.8) LV FS (2D) 31.67 % - EF Teichholz (2D) 60.23 % - Ao root diameter (2D) 3.51 cm (2 - 3.7) Volumes/Mass Name Value Normal Range LA ESV SP 4CH (A/L) 8.43 ml - LA ESV SP 2CH (A/L) 18.89 ml - LA ESV BP (A/L) 13.02 ml - LA ESV BP (A/L) index 8.8 ml/m2 - LA ESV SP 4CH (MOD) 7.22 ml - LA ESV SP 2CH (MOD) 18.15 ml - LA ESV BP (MOD) 11.47 ml - LA ESV BP (MOD) index 7.75 ml/m2 - Diastolic/Systolic Function Name Value Normal Range MV E-wave Vmax 0.51 m/sec - MV deceleration time 180.22 msec - MV A-wave Vmax 0.62 m/sec - MV E:A ratio 0.82 ratio - Aortic Valve Name Value Normal Range AV Vmax 1.17 m/sec - AV VTI 19.71 cm - AV peak gradient 5.44 mmHg - AV mean gradient 3.38 mmHg - LVOT diameter 2.26 cm - LVOT Vmax 0.89 m/sec - LVOT VTI 13.72 cm - LVOT peak gradient 3.17 mmHg - LVOT mean gradient 1.67 mmHg - SV LVOT 55.03 ml - SHARAD (continuity Vmax) 3.06 cm2 - SHARAD (continuity VTI) 2.79 cm2 - Tricuspid Valve Name Value Normal Range TR Vmax 2.3 m/sec - TR peak gradient 21 mmHg - RAP 8 mmHg - RVSP 29 mmHg - IVC diameter 2.59 cm (1.2 - 2.3) Pulmonic Valve/Qp:Qs Name Value Normal Range PV acceleration time 68.51 msec - Drake/IV: Voiding Method Indwelling Catheter IV Catheter Type [Right Wrist] INT / Saline Lock IV Catheter Type [Left Hand] Peripheral IV IV Catheter Type [Right Hand] Peripheral IV IV Catheter Type [Left Wrist] Peripheral IV IV Catheter Type [Right Peripheral IV Forearm] IV Catheter Type [Right Triple Lumen Cath Internal Jugular] IV Catheter Type [Left Forearm INT / Saline Lock ] IV Catheter Type [Right Triple Lumen Cath Femoral] IV Catheter Type [Right INT / Saline Lock Antecubital] Active Medications - Current Medications Current Medications: Generic Name Dose Route Start Last Admin Trade Name Freq PRN Reason Stop Dose Admin Acetaminophen 650 mg 02/24/20 15:13 04/19/20 04:34 Tylenol PO 650 mg Q4H PRN Administration Pain, Mild (1-3) Albuterol 2.5 mg 02/24/20 15:13 Proventil IH Q4HRT PRN Shortness Of Breath Alprazolam 0.5 mg 03/30/20 14:19 04/19/20 09:56 Xanax PO 0.5 mg Q8H PRN Administration Anxiety Lipase/Protease/Amylase 1 each 02/26/20 11:[address] 10,500 Unit FEEDTUBE PRN PRN For Clogged Feeding Tube Baclofen 10 mg 04/03/20 12:00 04/19/20 09:55 Lioresal PO 10 mg BID ALISA Administration Bisacodyl 10 mg 03/12/20 18:00 04/12/20 09:26 Bisacodyl 10 Mg Rect Supp SD 10 mg QDAY PRN Administration Bowel Movement Docusate Sodium 100 mg 04/03/20 12:00 04/19/20 09:56 Colace FEEDTUBE 100 mg BID ALISA Administration Enoxaparin Sodium 40 mg 03/20/20 22:00 04/18/20 21:11 Enoxaparin 40 Mg/0.4 Ml Inj SUB-Q 40 mg QDAY@2200 ALISA Administration Protocol Glycopyrrolate 2 mg 04/16/20 20:00 04/19/20 08:56 Glycopyrrolate 1 Mg Tab PO 2 mg TID ALISA Administration Lansoprazole 30 mg 02/28/20 10:00 04/19/20 09:56 Prevacid Solutab FEEDTUBE 30 mg QDAY ALISA Administration Lidocaine 1 each 03/31/20 10:00 04/19/20 09:55 Lidoderm 5% TD 1 each QDAY ALISA Administration Lidocaine HCl 15 ml 04/15/20 14:00 04/19/20 08:59 Magic Mouthwash 30ml PO 15 ml TID ALISA Administration Magnesium Hydroxide 30 ml 04/12/20 19:20 04/13/20 14:42 Magnesium Hydroxide (Mom) Oral Liqd Udc PO 30 ml Q4H PRN Administration Constipation Metoprolol Tartrate 12.5 mg 02/24/20 22:00 04/19/20 09:55 Metoprolol PO 12.5 mg BID ALISA Administration Morphine Sulfate 2 mg 02/29/20 16:42 04/19/20 09:57 Morphine IV 2 mg Q4H PRN Administration Pain, Moderate (4-6) Pregabalin 150 mg 04/03/20 12:00 04/19/20 09:57 Pregabalin PO 150 mg BID ALISA Administration Scopolamine 1 each 03/03/20 14:00 04/17/20 09:16 Transderm-Scop TD 1 each Q3D ALISA Administration Senna 17.2 mg 04/03/20 22:00 04/18/20 21:14 Senokot PO Not Given QHS ALISA Simple Syrup 15 ml 02/26/20 11:16 Simple Syrup FEEDTUBE PRN PRN Hypoglycemia Simple Syrup 30 ml 02/26/20 11:16 Simple Syrup FEEDTUBE PRN PRN Hypoglycemia Sodium Bicarbonate 325 mg 02/26/20 11:16 Sodium Bicarbonate FEEDTUBE PRN PRN For Clogged Feeding Tube Sodium Hypochlorite 1 applic 03/31/20 13:00 04/19/20 09:58 Dakin's Half Strength TP 1 package BID ALISA Administration Tamsulosin HCl 0.4 mg 03/09/20 18:00 04/19/20 09:58 Tamsulosin 0.4 Mg Cap PO 0.4 mg QDAY ALISA Administration Zolpidem Tartrate 10 mg 03/31/20 20:15 04/18/20 21:14 Ambien PO 10 mg QHS PRN Administration Sleep Nutrition/Malnutrition Assess - Dietary Evaluation Nutrition/Malnutrition Findings: Nutrition Notes Start: 02/26/20 10:40 Freq: Status: Active Protocol: Document 04/18/20 12:15 AB (Rec: 04/18/20 12:16 AB [id number]) Co-Sign 04/18/20 12:15 LP Nutrition Notes Initial or Follow up Brief Note Current Diagnosis Decubitus(Pressure Ulcer), Sepsis,Respiratory Failure Other Pertinent Diagnosis COVID-19 (-), ALS, pneumonia, Hip/buttock PU Current Diet Vital AF 1.2 at 75ml/hr (goal rate) Subjective/Other Information F/U for TF tolerance. Per RN, pt TF is running at goal and tolerating it. Nutrition Intervention Follow-Up By: 04/25/20 Additional Comments F/U for TF tolerance
--- NOTE | 2020-04-19 13:54 | Progress Note ---
Assessment and Plan Patient awake. Patient undergoing spontaneous breathing trial, Pressure support 10, FIO2 30%, PEEP 6 and O2 saturation running 96%. Continue spontaneous breathing trials as tolerated.Patient afebrile to day and has leukocytosis. Chest xray done 04/15/20 reported mild basilar airspace opacities which likely represent atelectasis but could represent an evolving pneumonia. If patient running fever, recommend to place hin on antibiotics like zosyn. I spent critical care time of 35 minutes, review the chart, examining the patient,Review chest xray, labs, talking to the nursing staff and respiratory therapist and work out plan of tratment in this critically ill patient. - Patient Problems (1) Acute on chronic respiratory failure with hypoxia and hypercapnia Current Visit: Yes Status: Acute Plan to address problem: Patient is on pressure support ventilation, Pressure support 10, FIO2 30%, PEEP 6. Albuterol inhaler 2 puffs po qid. Continue S/C Lovenox. Continue prevacid. Recommend to continue spontaneous breathing trials. (2) Bleeding from wound Current Visit: Yes Status: Acute Plan to address problem: Management primary care , surgery and wound care. (3) Elevated d-dimer Current Visit: Yes Status: Acute Plan to address problem: Patients venous doppler studies of legs, CTA chest reported Negative for VTE. Patient is on S/C Lovenox 40 mg qd. (4) Elevated troponin Current Visit: Yes Status: Acute Plan to address problem: Management as per primary care and cardiology (5) NSTEMI (non-ST elevated myocardial infarction) Current Visit: Yes Status: Acute Plan to address problem: Management as per cardiology. (6) Pneumonia Current Visit: Yes Status: Acute Qualifiers: Laterality: bilateral Plan to address problem: Patient was treated with ceftriaxone, zosyn and zithromax. Patient afebrile to day. Has leukocytosis. Chest xray done 04/15/20 reported mild basilar airspace opacities which likely represent atelectasis but could represent an evolving pneumonia. If patient running fever, recommend to place him back on antibiotics like zosyn. Subjective Date of service: 04/19/20 Principal diagnosis: Ac on Ch Hypercapnic & hypoxemic Resp Failure; Severe Sepsis; Jamar PNA; ALS Interval history: Patient awake. Patient undergoing spontaneous breathing trial, Pressure support 10, FIO2 30%, PEEP 6 and O2 saturation running 96%. Continue spontaneous breathing trials as tolerated.Patient afebrile to day and has leukocytosis. Chest xray done 04/15/20 reported mild basilar airspace opacities which likely represent atelectasis but could represent an evolving pneumonia. If patient running fever, recommend to place hin on antibiotics like zosyn. Objective Vital Signs - 12hr 04/19/20 04/19/20 04/19/20 02:00 03:00 04:00 Temperature 98.4 F Pulse Rate 106 H 104 H 112 H Pulse Rate [ 111 H From Monitor] Respiratory 13 12 14 Rate Blood Pressure 111/69 97/63 98/66 O2 Sat by Pulse 99 97 Oximetry O2 Sat by Pulse Oximetry [ Assessment] 04/19/20 04/19/20 04/19/20 04:42 05:00 06:00 Temperature Pulse Rate 111 H 104 H 108 H Pulse Rate [ From Monitor] Respiratory 13 15 Rate Blood Pressure 98/66 101/62 102/65 O2 Sat by Pulse 99 Oximetry O2 Sat by Pulse 99 Oximetry [ Assessment] 04/19/20 04/19/20 04/19/20 07:00 07:51 07:53 Temperature Pulse Rate 111 H 105 H 113 H Pulse Rate [ From Monitor] Respiratory 14 23 Rate Blood Pressure 96/62 96/62 96/62 O2 Sat by Pulse 99 99 Oximetry O2 Sat by Pulse Oximetry [ Assessment] 04/19/20 04/19/20 04/19/20 08:00 09:00 09:55 Temperature Pulse Rate 107 H 110 H 112 H Pulse Rate [ 98 H From Monitor] Respiratory 19 22 Rate Blood Pressure 99/64 101/65 101/65 O2 Sat by Pulse 98 98 Oximetry O2 Sat by Pulse Oximetry [ Assessment] 04/19/20 04/19/20 04/19/20 10:00 11:00 11:30 Temperature Pulse Rate 109 H 107 H Pulse Rate [ From Monitor] Respiratory 22 26 H Rate Blood Pressure 99/66 95/62 O2 Sat by Pulse 99 99 Oximetry O2 Sat by Pulse 100 Oximetry [ Assessment] 04/19/20 11:37 Temperature Pulse Rate 112 H Pulse Rate [ From Monitor] Respiratory 26 H Rate Blood Pressure 95/62 O2 Sat by Pulse 100 Oximetry O2 Sat by Pulse Oximetry [ Assessment] Constitutional: no acute distress, alert, other (thin middle aged male with normal respiratory effort at rest on MVS) Eyes: non-icteric ENT: oropharynx moist, other (S/P Tracheostomy) Neck: supple, no lymphadenopathy, no JVD Effort: mildly labored Ascultation: Bilateral: diminished breath sounds, wheezes, rhonchi Percussion: Bilateral: not dull Cardiovascular: regular rate and rhythm, other (S1,S2, no murmurs) Gastrointestinal: normoactive bowel sounds, soft, non-tender, non-distended, other (+ distended but non tender suprapubis) Integumentary: normal, decubitus ulcer (sacral / gluteal) Extremities: no cyanosis, no edema, pulses normal, other (atrophic looking limbs) Neurologic: pupils equal and round, other (motor strength in extremities 1-2/5, awake, alert, mouths words to make needs known) Psychiatric: depressed CBC and BMP: 04/19/20 06:51 04/19/20 06:51 ABG, PT/INR, D-dimer: ABG ABG pH 7.371 (7.320-7.450) 03/08/20 12:34 POC ABG pCO2 63.1 mmHg (32.0-48.0) H 03/08/20 12:34 ABG pCO2 60.1 mm Hg 03/06/20 04:34 POC ABG pO2 90.5 mmHg (83-108) 03/08/20 12:34 ABG pO2 88.6 mm Hg (80.0-90.0) 03/06/20 04:34 POC ABG HCO3 35.7 03/08/20 12:34 ABG O2 Saturation 97.0 % (95.0-99.0) 03/06/20 04:34 PT/INR, D-dimer PT 15.6 Sec. (12.2-14.9) H 02/24/20 09:19 INR 1.21 (0.87-1.13) H 02/24/20 09:19 D-Dimer 1311.96 ng/mlDDU (0-234) H 02/24/20 09:19 Abnormal lab findings: Abnormal Labs 02/24/20 02/24/20 02/24/20 09:19 09:19 09:19 WBC 20.2 H RBC 5.05 H Hgb Hct MCV MCH RDW 15.3 H Plt Count Lymph % (Auto) Lymph # (Auto) [place] # (Auto) Seg Neutrophils % Seg Neuts % (Manual) 86.0 H Lymphocytes % (Manual) 1.0 L Monocytes % (Manual) Basophils % (Manual) Seg Neutrophils # Seg Neutrophils # Man 17.4 H Lymphocytes # (Manual) 0.2 L Monocytes # (Manual) Eosinophils # (Manual) Basophils # (Manual) PT 15.6 H INR 1.21 H D-Dimer 1311.96 H ABG pH POC ABG pCO2 POC ABG pO2 ABG pO2 ABG HCO3 ABG O2 Saturation ABG Base Excess ABG Hemoglobin ABG Oxyhemoglobin ABG Potassium ABG Glucose Oxyhemoglobin Carboxyhemoglobin Sodium 135 L Potassium 3.2 L Chloride 92.2 L Carbon Dioxide BUN 6 L Creatinine < 0.2 L Glucose 124 H POC Glucose Calcium Ferritin Total Bilirubin 2.30 H Alkaline Phosphatase 132 H Lactate Dehydrogenase Total Creatine Kinase CK-MB (CK-2) Rel Index Troponin T 0.080 H C-Reactive Protein Total Protein Albumin 3.6 L Prealbumin LDL Cholesterol Direct 41 L Arterial Blood Glucose Arterial Blood Ionized Calcium Urine WBC (Auto) 02/24/20 02/24/20 02/24/20 09:19 09:58 10:01 WBC RBC Hgb Hct MCV MCH RDW Plt Count Lymph % (Auto) Lymph # (Auto) [place] # (Auto) Seg Neutrophils % Seg Neuts % (Manual) Lymphocytes % (Manual) Monocytes % (Manual) Basophils % (Manual) Seg Neutrophils # Seg Neutrophils # Man Lymphocytes # (Manual) Monocytes # (Manual) Eosinophils # (Manual) Basophils # (Manual) PT INR D-Dimer ABG pH 7.176 L* POC ABG pCO2 POC ABG pO2 ABG pO2 91.2 H ABG HCO3 ABG O2 Saturation ABG Base Excess -4.6 L ABG Hemoglobin ABG Oxyhemoglobin ABG Potassium ABG Glucose Oxyhemoglobin 92.6 L Carboxyhemoglobin Sodium Potassium Chloride Carbon Dioxide BUN Creatinine Glucose POC Glucose Calcium Ferritin 1715.0 H Total Bilirubin Alkaline Phosphatase Lactate Dehydrogenase 303 H Total Creatine Kinase CK-MB (CK-2) Rel Index Troponin T C-Reactive Protein 26.10 H Total Protein Albumin Prealbumin LDL Cholesterol Direct Arterial Blood Glucose Arterial Blood Ionized Calcium Urine WBC (Auto) 02/24/20 02/24/20 02/24/20 11:52 13:45 19:35 WBC RBC Hgb Hct MCV MCH RDW Plt Count Lymph % (Auto) Lymph # (Auto) [place] # (Auto) Seg Neutrophils % Seg Neuts % (Manual) Lymphocytes % (Manual) Monocytes % (Manual) Basophils % (Manual) Seg Neutrophils # Seg Neutrophils # Man Lymphocytes # (Manual) Monocytes # (Manual) Eosinophils # (Manual) Basophils # (Manual) PT INR D-Dimer ABG pH 7.051 L* 7.300 L POC ABG pCO2 POC ABG pO2 ABG pO2 94.7 H 75.1 L ABG HCO3 18.0 L ABG O2 Saturation 93.5 L ABG Base Excess -6.8 L -7.8 L ABG Hemoglobin 13.2 L 11.9 L ABG Oxyhemoglobin ABG Potassium ABG Glucose Oxyhemoglobin 91.0 L 92.7 L Carboxyhemoglobin Sodium Potassium Chloride Carbon Dioxide BUN Creatinine Glucose POC Glucose Calcium Ferritin Total Bilirubin Alkaline Phosphatase Lactate Dehydrogenase Total Creatine Kinase CK-MB (CK-2) Rel Index Troponin T 0.034 H D C-Reactive Protein Total Protein Albumin Prealbumin LDL Cholesterol Direct Arterial Blood Glucose Arterial Blood Ionized Calcium Urine WBC (Auto) 02/25/20 02/25/20 02/25/20 04:00 04:00 12:26 WBC 22.9 H RBC Hgb Hct MCV 83 L MCH 27 L RDW Plt Count 468 H Lymph % (Auto) Lymph # (Auto) [place] # (Auto) Seg Neutrophils % Seg Neuts % (Manual) 89.0 H Lymphocytes % (Manual) 7.0 L Monocytes % (Manual) Basophils % (Manual) Seg Neutrophils # Seg Neutrophils # Man 20.4 H Lymphocytes # (Manual) Monocytes # (Manual) Eosinophils # (Manual) Basophils # (Manual) PT INR D-Dimer ABG pH POC ABG pCO2 POC ABG pO2 ABG pO2 ABG HCO3 ABG O2 Saturation ABG Base Excess ABG Hemoglobin ABG Oxyhemoglobin ABG Potassium 2.6 L ABG Glucose 142 H Oxyhemoglobin Carboxyhemoglobin Sodium Potassium 3.2 L Chloride Carbon Dioxide 18 L BUN Creatinine 0.2 L Glucose 114 H POC Glucose Calcium Ferritin Total Bilirubin Alkaline Phosphatase Lactate Dehydrogenase Total Creatine Kinase CK-MB (CK-2) Rel Index Troponin T C-Reactive Protein Total Protein Albumin 3.5 L Prealbumin LDL Cholesterol Direct Arterial Blood Glucose 142 H Arterial Blood Ionized Calcium Urine WBC (Auto) 02/26/20 02/26/2020 15:58 17:00 23:43 WBC RBC Hgb Hct MCV MCH RDW Plt Count Lymph % (Auto) Lymph # (Auto) [place] # (Auto) Seg Neutrophils % Seg Neuts % (Manual) Lymphocytes % (Manual) Monocytes % (Manual) Basophils % (Manual) Seg Neutrophils # Seg Neutrophils # Man Lymphocytes # (Manual) Monocytes # (Manual) Eosinophils # (Manual) Basophils # (Manual) PT INR D-Dimer ABG pH 7.502 H POC ABG pCO2 POC ABG pO2 213.6 H ABG pO2 ABG HCO3 ABG O2 Saturation ABG Base Excess ABG Hemoglobin ABG Oxyhemoglobin 99.2 H ABG Potassium 2.9 L ABG Glucose 160 H Oxyhemoglobin Carboxyhemoglobin 0.4 L Sodium Potassium Chloride Carbon Dioxide BUN Creatinine Glucose POC Glucose 189 H 120 H Calcium Ferritin Total Bilirubin Alkaline Phosphatase Lactate Dehydrogenase Total Creatine Kinase CK-MB (CK-2) Rel Index Troponin T C-Reactive Protein Total Protein Albumin Prealbumin LDL Cholesterol Direct Arterial Blood Glucose 160 H Arterial Blood Ionized Calcium 4.5 L Urine WBC (Auto) 02/27/20 02/27/20 02/27/20 05:00 07:04 17:45 WBC RBC Hgb Hct MCV MCH RDW Plt Count Lymph % (Auto) Lymph # (Auto) [place] # (Auto) Seg Neutrophils % Seg Neuts % (Manual) Lymphocytes % (Manual) Monocytes % (Manual) Basophils % (Manual) Seg Neutrophils # Seg Neutrophils # Man Lymphocytes # (Manual) Monocytes # (Manual) Eosinophils # (Manual) Basophils # (Manual) PT INR D-Dimer ABG pH 7.524 H POC ABG pCO2 POC ABG pO2 ABG pO2 ABG HCO3 ABG O2 Saturation ABG Base Excess ABG Hemoglobin ABG Oxyhemoglobin ABG Potassium 3.0 L ABG Glucose 143 H Oxyhemoglobin Carboxyhemoglobin Sodium Potassium Chloride Carbon Dioxide BUN Creatinine Glucose POC Glucose 154 H 175 H Calcium Ferritin Total Bilirubin Alkaline Phosphatase Lactate Dehydrogenase Total Creatine Kinase CK-MB (CK-2) Rel Index Troponin T C-Reactive Protein Total Protein Albumin Prealbumin LDL Cholesterol Direct Arterial Blood Glucose 143 H Arterial Blood Ionized Calcium Urine WBC (Auto) 02/27/20 02/28/20 02/28/20 Unknown 00:21 04:15 WBC 18.7 H RBC Hgb Hct MCV MCH RDW Plt Count Lymph % (Auto) 8.7 L Lymph # (Auto) [place] # (Auto) 1.2 H Seg Neutrophils % 84.6 H Seg Neuts % (Manual) Lymphocytes % (Manual) Monocytes % (Manual) Basophils % (Manual) Seg Neutrophils # 15.9 H Seg Neutrophils # Man Lymphocytes # (Manual) Monocytes # (Manual) Eosinophils # (Manual) Basophils # (Manual) PT INR D-Dimer ABG pH POC ABG pCO2 POC ABG pO2 ABG pO2 ABG HCO3 ABG O2 Saturation ABG Base Excess ABG Hemoglobin ABG Oxyhemoglobin ABG Potassium ABG Glucose Oxyhemoglobin Carboxyhemoglobin Sodium Potassium 2.9 L* Chloride Carbon Dioxide 33 H D BUN Creatinine < 0.2 L Glucose 157 H POC Glucose 134 H Calcium Ferritin Total Bilirubin Alkaline Phosphatase Lactate Dehydrogenase Total Creatine Kinase CK-MB (CK-2) Rel Index Troponin T C-Reactive Protein Total Protein Albumin Prealbumin LDL Cholesterol Direct Arterial Blood Glucose Arterial Blood Ionized Calcium Urine WBC (Auto) 02/28/20 02/28/20 02/28/20 04:15 05:16 05:39 WBC RBC Hgb Hct MCV MCH RDW Plt Count Lymph % (Auto) Lymph # (Auto) [place] # (Auto) Seg Neutrophils % Seg Neuts % (Manual) Lymphocytes % (Manual) Monocytes % (Manual) Basophils % (Manual) Seg Neutrophils # Seg Neutrophils # Man Lymphocytes # (Manual) Monocytes # (Manual) Eosinophils # (Manual) Basophils # (Manual) PT INR D-Dimer ABG pH POC ABG pCO2 POC ABG pO2 ABG pO2 142.9 H ABG HCO3 34.1 H ABG O2 Saturation ABG Base Excess 8.3 H ABG Hemoglobin ABG Oxyhemoglobin ABG Potassium ABG Glucose Oxyhemoglobin Carboxyhemoglobin Sodium 151 H Potassium Chloride Carbon Dioxide 32 H BUN Creatinine 0.2 L Glucose 167 H POC Glucose 138 H Calcium Ferritin Total Bilirubin Alkaline Phosphatase Lactate Dehydrogenase Total Creatine Kinase CK-MB (CK-2) Rel Index Troponin T C-Reactive Protein Total Protein Albumin Prealbumin LDL Cholesterol Direct Arterial Blood Glucose Arterial Blood Ionized Calcium Urine WBC (Auto) 02/28/20 02/28/20 02/28/20 11:05 11:33 12:54 WBC RBC Hgb Hct MCV MCH RDW Plt Count Lymph % (Auto) Lymph # (Auto) [place] # (Auto) Seg Neutrophils % Seg Neuts % (Manual) Lymphocytes % (Manual) Monocytes % (Manual) Basophils % (Manual) Seg Neutrophils # Seg Neutrophils # Man Lymphocytes # (Manual) Monocytes # (Manual) Eosinophils # (Manual) Basophils # (Manual) PT INR D-Dimer ABG pH POC ABG pCO2 POC ABG pO2 ABG pO2 ABG HCO3 ABG O2 Saturation ABG Base Excess ABG Hemoglobin ABG Oxyhemoglobin ABG Potassium ABG Glucose Oxyhemoglobin Carboxyhemoglobin Sodium Potassium Chloride Carbon Dioxide BUN Creatinine Glucose POC Glucose 160 H Calcium Ferritin Total Bilirubin Alkaline Phosphatase Lactate Dehydrogenase Total Creatine Kinase CK-MB (CK-2) Rel Index Troponin T C-Reactive Protein 4.70 H Total Protein Albumin Prealbumin 0.090 L LDL Cholesterol Direct Arterial Blood Glucose Arterial Blood Ionized Calcium Urine WBC (Auto) 02/28/20 02/29/20 02/29/20 17:34 00:44 04:05 WBC 19.6 H RBC Hgb Hct MCV MCH 27 L RDW 15.4 H Plt Count Lymph % (Auto) Lymph # (Auto) [place] # (Auto) Seg Neutrophils % Seg Neuts % (Manual) 86.0 H Lymphocytes % (Manual) 7.0 L Monocytes % (Manual) Basophils % (Manual) Seg Neutrophils # Seg Neutrophils # Man 16.9 H Lymphocytes # (Manual) Monocytes # (Manual) 1.2 H Eosinophils # (Manual) Basophils # (Manual) PT INR D-Dimer ABG pH POC ABG pCO2 POC ABG pO2 ABG pO2 ABG HCO3 ABG O2 Saturation ABG Base Excess ABG Hemoglobin ABG Oxyhemoglobin ABG Potassium ABG Glucose Oxyhemoglobin Carboxyhemoglobin Sodium Potassium Chloride Carbon Dioxide BUN Creatinine Glucose POC Glucose 136 H 156 H Calcium Ferritin Total Bilirubin Alkaline Phosphatase Lactate Dehydrogenase Total Creatine Kinase CK-MB (CK-2) Rel Index Troponin T C-Reactive Protein Total Protein Albumin Prealbumin LDL Cholesterol Direct Arterial Blood Glucose Arterial Blood Ionized Calcium Urine WBC (Auto) 02/29/20 02/29/20 02/29/20 04:05 05:14 05:33 WBC RBC Hgb Hct MCV MCH RDW Plt Count Lymph % (Auto) Lymph # (Auto) [place] # (Auto) Seg Neutrophils % Seg Neuts % (Manual) Lymphocytes % (Manual) Monocytes % (Manual) Basophils % (Manual) Seg Neutrophils # Seg Neutrophils # Man Lymphocytes # (Manual) Monocytes # (Manual) Eosinophils # (Manual) Basophils # (Manual) PT INR D-Dimer ABG pH POC ABG pCO2 54.3 H POC ABG pO2 124.8 H ABG pO2 ABG HCO3 ABG O2 Saturation ABG Base Excess ABG Hemoglobin ABG Oxyhemoglobin ABG Potassium ABG Glucose 185 H Oxyhemoglobin Carboxyhemoglobin Sodium 148 H Potassium Chloride Carbon Dioxide 33 H BUN Creatinine < 0.2 L Glucose 173 H POC Glucose 152 H Calcium Ferritin Total Bilirubin Alkaline Phosphatase Lactate Dehydrogenase Total Creatine Kinase CK-MB (CK-2) Rel Index Troponin T C-Reactive Protein Total Protein Albumin Prealbumin LDL Cholesterol Direct Arterial Blood Glucose 185 H Arterial Blood Ionized Calcium Urine WBC (Auto) 03/01/20 03/01/20 03/01/20 00:00 03:45 04:33 WBC 23.1 H RBC Hgb Hct MCV MCH 27 L RDW 15.3 H Plt Count Lymph % (Auto) Lymph # (Auto) [place] # (Auto) Seg Neutrophils % Seg Neuts % (Manual) 92.0 H Lymphocytes % (Manual) 6.0 L Monocytes % (Manual) Basophils % (Manual) Seg Neutrophils # Seg Neutrophils # Man 21.3 H Lymphocytes # (Manual) Monocytes # (Manual) Eosinophils # (Manual) 0.5 H Basophils # (Manual) PT INR D-Dimer ABG pH 7.492 H POC ABG pCO2 POC ABG pO2 ABG pO2 157.1 H ABG HCO3 32.3 H ABG O2 Saturation ABG Base Excess 8.1 H ABG Hemoglobin 13.2 L ABG Oxyhemoglobin ABG Potassium ABG Glucose Oxyhemoglobin Carboxyhemoglobin Sodium Potassium Chloride Carbon Dioxide BUN Creatinine Glucose POC Glucose 109 H Calcium Ferritin Total Bilirubin Alkaline Phosphatase Lactate Dehydrogenase Total Creatine Kinase CK-MB (CK-2) Rel Index Troponin T C-Reactive Protein Total Protein Albumin Prealbumin LDL Cholesterol Direct Arterial Blood Glucose Arterial Blood Ionized Calcium Urine WBC (Auto) 03/01/20 03/01/20 03/01/20 04:33 05:29 12:32 WBC RBC Hgb Hct MCV MCH RDW Plt Count Lymph % (Auto) Lymph # (Auto) [place] # (Auto) Seg Neutrophils % Seg Neuts % (Manual) Lymphocytes % (Manual) Monocytes % (Manual) Basophils % (Manual) Seg Neutrophils # Seg Neutrophils # Man Lymphocytes # (Manual) Monocytes # (Manual) Eosinophils # (Manual) Basophils # (Manual) PT INR D-Dimer ABG pH POC ABG pCO2 POC ABG pO2 ABG pO2 ABG HCO3 ABG O2 Saturation ABG Base Excess ABG Hemoglobin ABG Oxyhemoglobin ABG Potassium ABG Glucose Oxyhemoglobin Carboxyhemoglobin Sodium 146 H Potassium Chloride Carbon Dioxide 32 H BUN Creatinine < 0.2 L Glucose 120 H POC Glucose 120 H 128 H Calcium Ferritin Total Bilirubin Alkaline Phosphatase Lactate Dehydrogenase Total Creatine Kinase CK-MB (CK-2) Rel Index Troponin T C-Reactive Protein Total Protein Albumin Prealbumin LDL Cholesterol Direct Arterial Blood Glucose Arterial Blood Ionized Calcium Urine WBC (Auto) 03/01/20 03/01/20 03/02/20 17:38 23:46 06:13 WBC RBC Hgb Hct MCV MCH RDW Plt Count Lymph % (Auto) Lymph # (Auto) [place] # (Auto) Seg Neutrophils % Seg Neuts % (Manual) Lymphocytes % (Manual) Monocytes % (Manual) Basophils % (Manual) Seg Neutrophils # Seg Neutrophils # Man Lymphocytes # (Manual) Monocytes # (Manual) Eosinophils # (Manual) Basophils # (Manual) PT INR D-Dimer ABG pH POC ABG pCO2 POC ABG pO2 ABG pO2 ABG HCO3 ABG O2 Saturation ABG Base Excess ABG Hemoglobin ABG Oxyhemoglobin ABG Potassium ABG Glucose Oxyhemoglobin Carboxyhemoglobin Sodium Potassium Chloride Carbon Dioxide BUN Creatinine Glucose POC Glucose 114 H 121 H 120 H Calcium Ferritin Total Bilirubin Alkaline Phosphatase Lactate Dehydrogenase Total Creatine Kinase CK-MB (CK-2) Rel Index Troponin T C-Reactive Protein Total Protein Albumin Prealbumin LDL Cholesterol Direct Arterial Blood Glucose Arterial Blood Ionized Calcium Urine WBC (Auto) 03/02/20 03/02/20 03/03/20 09:47 09:47 10:21 WBC 23.6 H RBC Hgb Hct MCV MCH RDW 15.3 H Plt Count 494 H Lymph % (Auto) Lymph # (Auto) [place] # (Auto) Seg Neutrophils % Seg Neuts % (Manual) 85.0 H Lymphocytes % (Manual) 6.0 L Monocytes % (Manual) Basophils % (Manual) Seg Neutrophils # Seg Neutrophils # Man 20.1 H Lymphocytes # (Manual) Monocytes # (Manual) 1.7 H Eosinophils # (Manual) Basophils # (Manual) PT INR D-Dimer ABG pH POC ABG pCO2 POC ABG pO2 ABG pO2 ABG HCO3 ABG O2 Saturation ABG Base Excess ABG Hemoglobin ABG Oxyhemoglobin ABG Potassium 3.3 L ABG Glucose 158 H Oxyhemoglobin Carboxyhemoglobin Sodium Potassium Chloride Carbon Dioxide BUN Creatinine < 0.2 L Glucose 177 H POC Glucose Calcium Ferritin Total Bilirubin Alkaline Phosphatase Lactate Dehydrogenase Total Creatine Kinase CK-MB (CK-2) Rel Index Troponin T C-Reactive Protein Total Protein Albumin Prealbumin LDL Cholesterol Direct Arterial Blood Glucose 158 H Arterial Blood Ionized Calcium Urine WBC (Auto) 03/03/20 03/04/20 03/04/20 21:30 00:00 12:23 WBC RBC Hgb Hct MCV MCH RDW Plt Count Lymph % (Auto) Lymph # (Auto) [place] # (Auto) Seg Neutrophils % Seg Neuts % (Manual) Lymphocytes % (Manual) Monocytes % (Manual) Basophils % (Manual) Seg Neutrophils # Seg Neutrophils # Man Lymphocytes # (Manual) Monocytes # (Manual) Eosinophils # (Manual) Basophils # (Manual) PT INR D-Dimer ABG pH 7.328 L POC ABG pCO2 POC ABG pO2 ABG pO2 68.4 L ABG HCO3 35.0 H ABG O2 Saturation 93.9 L ABG Base Excess 6.8 H ABG Hemoglobin 12.7 L ABG Oxyhemoglobin ABG Potassium ABG Glucose Oxyhemoglobin 91.9 L Carboxyhemoglobin Sodium Potassium Chloride Carbon Dioxide BUN Creatinine Glucose POC Glucose 187 H 163 H Calcium Ferritin Total Bilirubin Alkaline Phosphatase Lactate Dehydrogenase Total Creatine Kinase CK-MB (CK-2) Rel Index Troponin T C-Reactive Protein Total Protein Albumin Prealbumin LDL Cholesterol Direct Arterial Blood Glucose Arterial Blood Ionized Calcium Urine WBC (Auto) 03/04/20 03/04/20 03/05/20 18:15 21:30 06:02 WBC RBC Hgb Hct MCV MCH RDW Plt Count Lymph % (Auto) Lymph # (Auto) [place] # (Auto) Seg Neutrophils % Seg Neuts % (Manual) Lymphocytes % (Manual) Monocytes % (Manual) Basophils % (Manual) Seg Neutrophils # Seg Neutrophils # Man Lymphocytes # (Manual) Monocytes # (Manual) Eosinophils # (Manual) Basophils # (Manual) PT INR D-Dimer ABG pH 7.297 L POC ABG pCO2 POC ABG pO2 ABG pO2 ABG HCO3 41.0 H ABG O2 Saturation ABG Base Excess 11.0 H ABG Hemoglobin 13.1 L ABG Oxyhemoglobin ABG Potassium ABG Glucose Oxyhemoglobin 94.5 L Carboxyhemoglobin Sodium Potassium Chloride Carbon Dioxide BUN Creatinine Glucose POC Glucose 192 H 127 H Calcium Ferritin Total Bilirubin Alkaline Phosphatase Lactate Dehydrogenase Total Creatine Kinase CK-MB (CK-2) Rel Index Troponin T C-Reactive Protein Total Protein Albumin Prealbumin LDL Cholesterol Direct Arterial Blood Glucose Arterial Blood Ionized Calcium Urine WBC (Auto) 03/05/20 03/05/20 03/06/20 12:09 16:42 00:24 WBC RBC Hgb Hct MCV MCH RDW Plt Count Lymph % (Auto) Lymph # (Auto) [place] # (Auto) Seg Neutrophils % Seg Neuts % (Manual) Lymphocytes % (Manual) Monocytes % (Manual) Basophils % (Manual) Seg Neutrophils # Seg Neutrophils # Man Lymphocytes # (Manual) Monocytes # (Manual) Eosinophils # (Manual) Basophils # (Manual) PT INR D-Dimer ABG pH POC ABG pCO2 POC ABG pO2 ABG pO2 ABG HCO3 ABG O2 Saturation ABG Base Excess ABG Hemoglobin ABG Oxyhemoglobin ABG Potassium ABG Glucose Oxyhemoglobin Carboxyhemoglobin Sodium Potassium Chloride Carbon Dioxide BUN Creatinine Glucose POC Glucose 147 H 114 H 134 H Calcium Ferritin Total Bilirubin Alkaline Phosphatase Lactate Dehydrogenase Total Creatine Kinase CK-MB (CK-2) Rel Index Troponin T C-Reactive Protein Total Protein Albumin Prealbumin LDL Cholesterol Direct Arterial Blood Glucose Arterial Blood Ionized Calcium Urine WBC (Auto) 03/06/20 03/06/20 03/06/20 04:34 05:53 06:08 WBC 25.4 H RBC Hgb 10.5 L Hct 32.7 L MCV MCH 27 L RDW 15.3 H Plt Count 634 H Lymph % (Auto) Lymph # (Auto) [place] # (Auto) Seg Neutrophils % Seg Neuts % (Manual) 88.0 H Lymphocytes % (Manual) 2.0 L Monocytes % (Manual) 8.0 H Basophils % (Manual) Seg Neutrophils # Seg Neutrophils # Man 22.4 H Lymphocytes # (Manual) 0.5 L Monocytes # (Manual) 2.0 H Eosinophils # (Manual) Basophils # (Manual) PT INR D-Dimer ABG pH POC ABG pCO2 POC ABG pO2 ABG pO2 ABG HCO3 37.9 H ABG O2 Saturation ABG Base Excess 11.4 H ABG Hemoglobin 10.6 L ABG Oxyhemoglobin ABG Potassium ABG Glucose Oxyhemoglobin 94.7 L Carboxyhemoglobin Sodium Potassium Chloride Carbon Dioxide BUN Creatinine Glucose POC Glucose 135 H Calcium Ferritin Total Bilirubin Alkaline Phosphatase Lactate Dehydrogenase Total Creatine Kinase CK-MB (CK-2) Rel Index Troponin T C-Reactive Protein Total Protein Albumin Prealbumin LDL Cholesterol Direct Arterial Blood Glucose Arterial Blood Ionized Calcium Urine WBC (Auto) 03/06/20 03/06/20 03/06/20 06:08 12:19 19:10 WBC RBC Hgb Hct MCV MCH RDW Plt Count Lymph % (Auto) Lymph # (Auto) [place] # (Auto) Seg Neutrophils % Seg Neuts % (Manual) Lymphocytes % (Manual) Monocytes % (Manual) Basophils % (Manual) Seg Neutrophils # Seg Neutrophils # Man Lymphocytes # (Manual) Monocytes # (Manual) Eosinophils # (Manual) Basophils # (Manual) PT INR D-Dimer ABG pH POC ABG pCO2 POC ABG pO2 ABG pO2 ABG HCO3 ABG O2 Saturation ABG Base Excess ABG Hemoglobin ABG Oxyhemoglobin ABG Potassium ABG Glucose Oxyhemoglobin Carboxyhemoglobin Sodium 150 H D Potassium Chloride Carbon Dioxide 39 H D BUN 23 H Creatinine < 0.2 L Glucose 144 H POC Glucose 169 H 152 H Calcium Ferritin Total Bilirubin Alkaline Phosphatase Lactate Dehydrogenase Total Creatine Kinase CK-MB (CK-2) Rel Index Troponin T C-Reactive Protein Total Protein Albumin 3.3 L Prealbumin LDL Cholesterol Direct Arterial Blood Glucose Arterial Blood Ionized Calcium Urine WBC (Auto) 03/06/20 03/07/20 03/07/20 23:58 04:25 04:25 WBC 22.1 H RBC Hgb 10.9 L Hct 32.9 L MCV MCH RDW 15.5 H Plt Count 739 H Lymph % (Auto) 7.8 L Lymph # (Auto) [place] # (Auto) 1.3 H Seg Neutrophils % 85.5 H Seg Neuts % (Manual) Lymphocytes % (Manual) Monocytes % (Manual) Basophils % (Manual) Seg Neutrophils # 18.9 H Seg Neutrophils # Man Lymphocytes # (Manual) Monocytes # (Manual) Eosinophils # (Manual) Basophils # (Manual) PT INR D-Dimer ABG pH POC ABG pCO2 POC ABG pO2 ABG pO2 ABG HCO3 ABG O2 Saturation ABG Base Excess ABG Hemoglobin ABG Oxyhemoglobin ABG Potassium ABG Glucose Oxyhemoglobin Carboxyhemoglobin Sodium 146 H Potassium Chloride Carbon Dioxide 37 H BUN Creatinine < 0.2 L Glucose 118 H POC Glucose 111 H Calcium Ferritin Total Bilirubin Alkaline Phosphatase Lactate Dehydrogenase Total Creatine Kinase CK-MB (CK-2) Rel Index Troponin T C-Reactive Protein Total Protein Albumin 3.7 L Prealbumin LDL Cholesterol Direct Arterial Blood Glucose Arterial Blood Ionized Calcium Urine WBC (Auto) 03/07/20 03/07/20 03/07/20 05:20 17:45 23:32 WBC RBC Hgb Hct MCV MCH RDW Plt Count Lymph % (Auto) Lymph # (Auto) [place] # (Auto) Seg Neutrophils % Seg Neuts % (Manual) Lymphocytes % (Manual) Monocytes % (Manual) Basophils % (Manual) Seg Neutrophils # Seg Neutrophils # Man Lymphocytes # (Manual) Monocytes # (Manual) Eosinophils # (Manual) Basophils # (Manual) PT INR D-Dimer ABG pH POC ABG pCO2 POC ABG pO2 ABG pO2 ABG HCO3 ABG O2 Saturation ABG Base Excess ABG Hemoglobin ABG Oxyhemoglobin ABG Potassium ABG Glucose Oxyhemoglobin Carboxyhemoglobin Sodium Potassium Chloride Carbon Dioxide BUN Creatinine Glucose POC Glucose 113 H 124 H 210 H Calcium Ferritin Total Bilirubin Alkaline Phosphatase Lactate Dehydrogenase Total Creatine Kinase CK-MB (CK-2) Rel Index Troponin T C-Reactive Protein Total Protein Albumin Prealbumin LDL Cholesterol Direct Arterial Blood Glucose Arterial Blood Ionized Calcium Urine WBC (Auto) 03/08/20 03/08/20 03/08/20 05:35 06:43 06:43 WBC 28.9 H RBC 3.53 L Hgb 9.7 L Hct 30.3 L MCV MCH RDW 15.6 H Plt Count 578 H Lymph % (Auto) Lymph # (Auto) [place] # (Auto) Seg Neutrophils % Seg Neuts % (Manual) 93.0 H Lymphocytes % (Manual) 4.0 L Monocytes % (Manual) Basophils % (Manual) Seg Neutrophils # Seg Neutrophils # Man 26.9 H Lymphocytes # (Manual) Monocytes # (Manual) Eosinophils # (Manual) Basophils # (Manual) PT INR D-Dimer ABG pH POC ABG pCO2 POC ABG pO2 ABG pO2 ABG HCO3 ABG O2 Saturation ABG Base Excess ABG Hemoglobin ABG Oxyhemoglobin ABG Potassium ABG Glucose Oxyhemoglobin Carboxyhemoglobin Sodium 146 H Potassium Chloride Carbon Dioxide 35 H BUN 34 H Creatinine 0.3 L D Glucose 125 H POC Glucose 147 H Calcium Ferritin Total Bilirubin Alkaline Phosphatase Lactate Dehydrogenase Total Creatine Kinase CK-MB (CK-2) Rel Index Troponin T C-Reactive Protein Total Protein 5.9 L Albumin 3.2 L Prealbumin LDL Cholesterol Direct Arterial Blood Glucose Arterial Blood Ionized Calcium Urine WBC (Auto) 03/08/20 03/08/20 03/08/20 08:57 11:14 12:34 WBC RBC Hgb Hct MCV MCH RDW Plt Count Lymph % (Auto) Lymph # (Auto) [place] # (Auto) Seg Neutrophils % Seg Neuts % (Manual) Lymphocytes % (Manual) Monocytes % (Manual) Basophils % (Manual) Seg Neutrophils # Seg Neutrophils # Man Lymphocytes # (Manual) Monocytes # (Manual) Eosinophils # (Manual) Basophils # (Manual) PT INR D-Dimer ABG pH POC ABG pCO2 63.1 H POC ABG pO2 ABG pO2 ABG HCO3 ABG O2 Saturation ABG Base Excess ABG Hemoglobin 10.9 L ABG Oxyhemoglobin ABG Potassium ABG Glucose 176 H Oxyhemoglobin Carboxyhemoglobin Sodium Potassium Chloride Carbon Dioxide BUN Creatinine Glucose POC Glucose 171 H Calcium Ferritin Total Bilirubin Alkaline Phosphatase Lactate Dehydrogenase Total Creatine Kinase CK-MB (CK-2) Rel Index Troponin T C-Reactive Protein Total Protein Albumin Prealbumin LDL Cholesterol Direct Arterial Blood Glucose 176 H Arterial Blood Ionized Calcium 4.5 L Urine WBC (Auto) 10.0 H 03/08/20 03/08/20 03/09/20 18:02 23:43 05:49 WBC RBC Hgb Hct MCV MCH RDW Plt Count Lymph % (Auto) Lymph # (Auto) [place] # (Auto) Seg Neutrophils % Seg Neuts % (Manual) Lymphocytes % (Manual) Monocytes % (Manual) Basophils % (Manual) Seg Neutrophils # Seg Neutrophils # Man Lymphocytes # (Manual) Monocytes # (Manual) Eosinophils # (Manual) Basophils # (Manual) PT INR D-Dimer ABG pH POC ABG pCO2 POC ABG pO2 ABG pO2 ABG HCO3 ABG O2 Saturation ABG Base Excess ABG Hemoglobin ABG Oxyhemoglobin ABG Potassium ABG Glucose Oxyhemoglobin Carboxyhemoglobin Sodium Potassium Chloride Carbon Dioxide BUN Creatinine Glucose POC Glucose 157 H 134 H 163 H Calcium Ferritin Total Bilirubin Alkaline Phosphatase Lactate Dehydrogenase Total Creatine Kinase CK-MB (CK-2) Rel Index Troponin T C-Reactive Protein Total Protein Albumin Prealbumin LDL Cholesterol Direct Arterial Blood Glucose Arterial Blood Ionized Calcium Urine WBC (Auto) 03/09/20 03/09/20 03/09/20 08:35 08:35 12:11 WBC 23.4 H RBC 3.36 L Hgb 9.3 L Hct 28.8 L MCV MCH RDW 15.9 H Plt Count 521 H Lymph % (Auto) Lymph # (Auto) [place] # (Auto) Seg Neutrophils % Seg Neuts % (Manual) 87.0 H Lymphocytes % (Manual) 4.0 L Monocytes % (Manual) 9.0 H Basophils % (Manual) Seg Neutrophils # Seg Neutrophils # Man 20.4 H Lymphocytes # (Manual) 0.9 L Monocytes # (Manual) 2.1 H Eosinophils # (Manual) Basophils # (Manual) PT INR D-Dimer ABG pH POC ABG pCO2 POC ABG pO2 ABG pO2 ABG HCO3 ABG O2 Saturation ABG Base Excess ABG Hemoglobin ABG Oxyhemoglobin ABG Potassium ABG Glucose Oxyhemoglobin Carboxyhemoglobin Sodium 147 H Potassium Chloride Carbon Dioxide 37 H BUN 63 H Creatinine Glucose 154 H POC Glucose 128 H Calcium Ferritin Total Bilirubin Alkaline Phosphatase Lactate Dehydrogenase Total Creatine Kinase CK-MB (CK-2) Rel Index Troponin T C-Reactive Protein Total Protein Albumin Prealbumin LDL Cholesterol Direct Arterial Blood Glucose Arterial Blood Ionized Calcium Urine WBC (Auto) 03/09/20 03/10/20 03/10/20 17:51 00:25 05:41 WBC RBC Hgb Hct MCV MCH RDW Plt Count Lymph % (Auto) Lymph # (Auto) [place] # (Auto) Seg Neutrophils % Seg Neuts % (Manual) Lymphocytes % (Manual) Monocytes % (Manual) Basophils % (Manual) Seg Neutrophils # Seg Neutrophils # Man Lymphocytes # (Manual) Monocytes # (Manual) Eosinophils # (Manual) Basophils # (Manual) PT INR D-Dimer ABG pH POC ABG pCO2 POC ABG pO2 ABG pO2 ABG HCO3 ABG O2 Saturation ABG Base Excess ABG Hemoglobin ABG Oxyhemoglobin ABG Potassium ABG Glucose Oxyhemoglobin Carboxyhemoglobin Sodium Potassium Chloride Carbon Dioxide BUN Creatinine Glucose POC Glucose 127 H 128 H 153 H Calcium Ferritin Total Bilirubin Alkaline Phosphatase Lactate Dehydrogenase Total Creatine Kinase CK-MB (CK-2) Rel Index Troponin T C-Reactive Protein Total Protein Albumin Prealbumin LDL Cholesterol Direct Arterial Blood Glucose Arterial Blood Ionized Calcium Urine WBC (Auto) 03/10/20 03/10/20 03/10/20 06:14 06:14 12:02 WBC 18.3 H RBC 3.45 L Hgb 9.5 L Hct 29.5 L MCV MCH RDW 16.1 H Plt Count 494 H Lymph % (Auto) Lymph # (Auto) [place] # (Auto) Seg Neutrophils % Seg Neuts % (Manual) 95.0 H Lymphocytes % (Manual) 1.0 L Monocytes % (Manual) Basophils % (Manual) Seg Neutrophils # Seg Neutrophils # Man 17.4 H Lymphocytes # (Manual) 0.2 L Monocytes # (Manual) Eosinophils # (Manual) Basophils # (Manual) PT INR D-Dimer ABG pH POC ABG pCO2 POC ABG pO2 ABG pO2 ABG HCO3 ABG O2 Saturation ABG Base Excess ABG Hemoglobin ABG Oxyhemoglobin ABG Potassium ABG Glucose Oxyhemoglobin Carboxyhemoglobin Sodium 149 H Potassium Chloride Carbon Dioxide 35 H BUN 34 H Creatinine 0.2 L D Glucose 177 H POC Glucose 151 H Calcium Ferritin Total Bilirubin Alkaline Phosphatase Lactate Dehydrogenase Total Creatine Kinase CK-MB (CK-2) Rel Index Troponin T C-Reactive Protein Total Protein Albumin Prealbumin LDL Cholesterol Direct Arterial Blood Glucose Arterial Blood Ionized Calcium Urine WBC (Auto) 03/10/20 03/10/20 03/11/20 17:41 23:53 05:02 WBC RBC Hgb Hct MCV MCH RDW Plt Count Lymph % (Auto) Lymph # (Auto) [place] # (Auto) Seg Neutrophils % Seg Neuts % (Manual) Lymphocytes % (Manual) Monocytes % (Manual) Basophils % (Manual) Seg Neutrophils # Seg Neutrophils # Man Lymphocytes # (Manual) Monocytes # (Manual) Eosinophils # (Manual) Basophils # (Manual) PT INR D-Dimer ABG pH POC ABG pCO2 POC ABG pO2 ABG pO2 ABG HCO3 ABG O2 Saturation ABG Base Excess ABG Hemoglobin ABG Oxyhemoglobin ABG Potassium ABG Glucose Oxyhemoglobin Carboxyhemoglobin Sodium Potassium Chloride Carbon Dioxide BUN Creatinine Glucose POC Glucose 168 H 142 H 146 H Calcium Ferritin Total Bilirubin Alkaline Phosphatase Lactate Dehydrogenase Total Creatine Kinase CK-MB (CK-2) Rel Index Troponin T C-Reactive Protein Total Protein Albumin Prealbumin LDL Cholesterol Direct Arterial Blood Glucose Arterial Blood Ionized Calcium Urine WBC (Auto) 03/11/20 03/11/20 03/11/20 11:30 14:01 14:01 WBC 19.7 H RBC 3.04 L Hgb 8.7 L Hct 25.8 L MCV MCH RDW 15.6 H Plt Count Lymph % (Auto) Lymph # (Auto) [place] # (Auto) Seg Neutrophils % Seg Neuts % (Manual) Lymphocytes % (Manual) Monocytes % (Manual) Basophils % (Manual) Seg Neutrophils # Seg Neutrophils # Man Lymphocytes # (Manual) Monocytes # (Manual) Eosinophils # (Manual) Basophils # (Manual) PT INR D-Dimer ABG pH POC ABG pCO2 POC ABG pO2 ABG pO2 ABG HCO3 ABG O2 Saturation ABG Base Excess ABG Hemoglobin ABG Oxyhemoglobin ABG Potassium ABG Glucose Oxyhemoglobin Carboxyhemoglobin Sodium 151 H Potassium Chloride Carbon Dioxide 37 H BUN Creatinine < 0.2 L Glucose 171 H POC Glucose 248 H Calcium Ferritin Total Bilirubin Alkaline Phosphatase Lactate Dehydrogenase Total Creatine Kinase CK-MB (CK-2) Rel Index Troponin T C-Reactive Protein Total Protein Albumin Prealbumin LDL Cholesterol Direct Arterial Blood Glucose Arterial Blood Ionized Calcium Urine WBC (Auto) 03/11/20 03/11/20 03/12/20 17:09 23:52 04:39 WBC 19.9 H RBC 3.16 L Hgb 8.9 L Hct 27.5 L MCV MCH RDW 15.7 H Plt Count Lymph % (Auto) 6.8 L Lymph # (Auto) [place] # (Auto) 1.2 H Seg Neutrophils % 86.0 H Seg Neuts % (Manual) Lymphocytes % (Manual) Monocytes % (Manual) Basophils % (Manual) Seg Neutrophils # 17.1 H Seg Neutrophils # Man Lymphocytes # (Manual) Monocytes # (Manual) Eosinophils # (Manual) Basophils # (Manual) PT INR D-Dimer ABG pH POC ABG pCO2 POC ABG pO2 ABG pO2 ABG HCO3 ABG O2 Saturation ABG Base Excess ABG Hemoglobin ABG Oxyhemoglobin ABG Potassium ABG Glucose Oxyhemoglobin Carboxyhemoglobin Sodium Potassium Chloride Carbon Dioxide BUN Creatinine Glucose POC Glucose 124 H 131 H Calcium Ferritin Total Bilirubin Alkaline Phosphatase Lactate Dehydrogenase Total Creatine Kinase CK-MB (CK-2) Rel Index Troponin T C-Reactive Protein Total Protein Albumin Prealbumin LDL Cholesterol Direct Arterial Blood Glucose Arterial Blood Ionized Calcium Urine WBC (Auto) 03/12/20 03/12/20 03/12/20 04:39 05:28 11:34 WBC RBC Hgb Hct MCV MCH RDW Plt Count Lymph % (Auto) Lymph # (Auto) [place] # (Auto) Seg Neutrophils % Seg Neuts % (Manual) Lymphocytes % (Manual) Monocytes % (Manual) Basophils % (Manual) Seg Neutrophils # Seg Neutrophils # Man Lymphocytes # (Manual) Monocytes # (Manual) Eosinophils # (Manual) Basophils # (Manual) PT INR D-Dimer ABG pH POC ABG pCO2 POC ABG pO2 ABG pO2 ABG HCO3 ABG O2 Saturation ABG Base Excess ABG Hemoglobin ABG Oxyhemoglobin ABG Potassium ABG Glucose Oxyhemoglobin Carboxyhemoglobin Sodium 147 H Potassium Chloride Carbon Dioxide 40 H BUN Creatinine < 0.2 L Glucose 175 H POC Glucose 167 H 144 H Calcium Ferritin Total Bilirubin Alkaline Phosphatase Lactate Dehydrogenase Total Creatine Kinase CK-MB (CK-2) Rel Index Troponin T C-Reactive Protein Total Protein Albumin Prealbumin LDL Cholesterol Direct Arterial Blood Glucose Arterial Blood Ionized Calcium Urine WBC (Auto) 03/12/20 03/12/20 03/13/20 17:32 23:57 05:57 WBC RBC Hgb Hct MCV MCH RDW Plt Count Lymph % (Auto) Lymph # (Auto) [place] # (Auto) Seg Neutrophils % Seg Neuts % (Manual) Lymphocytes % (Manual) Monocytes % (Manual) Basophils % (Manual) Seg Neutrophils # Seg Neutrophils # Man Lymphocytes # (Manual) Monocytes # (Manual) Eosinophils # (Manual) Basophils # (Manual) PT INR D-Dimer ABG pH POC ABG pCO2 POC ABG pO2 ABG pO2 ABG HCO3 ABG O2 Saturation ABG Base Excess ABG Hemoglobin ABG Oxyhemoglobin ABG Potassium ABG Glucose Oxyhemoglobin Carboxyhemoglobin Sodium Potassium Chloride Carbon Dioxide BUN Creatinine Glucose POC Glucose 141 H 137 H 161 H Calcium Ferritin Total Bilirubin Alkaline Phosphatase Lactate Dehydrogenase Total Creatine Kinase CK-MB (CK-2) Rel Index Troponin T C-Reactive Protein Total Protein Albumin Prealbumin LDL Cholesterol Direct Arterial Blood Glucose Arterial Blood Ionized Calcium Urine WBC (Auto) 03/13/20 03/13/20 03/13/20 12:28 14:14 18:39 WBC RBC Hgb Hct MCV MCH RDW Plt Count Lymph % (Auto) Lymph # (Auto) [place] # (Auto) Seg Neutrophils % Seg Neuts % (Manual) Lymphocytes % (Manual) Monocytes % (Manual) Basophils % (Manual) Seg Neutrophils # Seg Neutrophils # Man Lymphocytes # (Manual) Monocytes # (Manual) Eosinophils # (Manual) Basophils # (Manual) PT INR D-Dimer ABG pH POC ABG pCO2 POC ABG pO2 ABG pO2 ABG HCO3 ABG O2 Saturation ABG Base Excess ABG Hemoglobin ABG Oxyhemoglobin ABG Potassium ABG Glucose Oxyhemoglobin Carboxyhemoglobin Sodium Potassium Chloride Carbon Dioxide 39 H BUN Creatinine < 0.2 L Glucose 129 H POC Glucose 130 H 125 H Calcium Ferritin Total Bilirubin Alkaline Phosphatase Lactate Dehydrogenase Total Creatine Kinase CK-MB (CK-2) Rel Index Troponin T C-Reactive Protein Total Protein Albumin Prealbumin LDL Cholesterol Direct Arterial Blood Glucose Arterial Blood Ionized Calcium Urine WBC (Auto) 03/13/20 03/14/20 03/14/20 23:33 05:24 08:07 WBC 16.8 H RBC 2.81 L Hgb 7.9 L Hct 23.9 L MCV MCH RDW 15.9 H Plt Count Lymph % (Auto) Lymph # (Auto) [place] # (Auto) Seg Neutrophils % Seg Neuts % (Manual) 84.0 H Lymphocytes % (Manual) 10.0 L Monocytes % (Manual) Basophils % (Manual) Seg Neutrophils # Seg Neutrophils # Man 14.1 H Lymphocytes # (Manual) Monocytes # (Manual) Eosinophils # (Manual) Basophils # (Manual) PT INR D-Dimer ABG pH POC ABG pCO2 POC ABG pO2 ABG pO2 ABG HCO3 ABG O2 Saturation ABG Base Excess ABG Hemoglobin ABG Oxyhemoglobin ABG Potassium ABG Glucose Oxyhemoglobin Carboxyhemoglobin Sodium Potassium Chloride Carbon Dioxide BUN Creatinine Glucose POC Glucose 146 H 125 H Calcium Ferritin Total Bilirubin Alkaline Phosphatase Lactate Dehydrogenase Total Creatine Kinase CK-MB (CK-2) Rel Index Troponin T C-Reactive Protein Total Protein Albumin Prealbumin LDL Cholesterol Direct Arterial Blood Glucose Arterial Blood Ionized Calcium Urine WBC (Auto) 03/14/20 03/14/20 03/14/20 08:07 12:21 18:26 WBC RBC Hgb Hct MCV MCH RDW Plt Count Lymph % (Auto) Lymph # (Auto) [place] # (Auto) Seg Neutrophils % Seg Neuts % (Manual) Lymphocytes % (Manual) Monocytes % (Manual) Basophils % (Manual) Seg Neutrophils # Seg Neutrophils # Man Lymphocytes # (Manual) Monocytes # (Manual) Eosinophils # (Manual) Basophils # (Manual) PT INR D-Dimer ABG pH POC ABG pCO2 POC ABG pO2 ABG pO2 ABG HCO3 ABG O2 Saturation ABG Base Excess ABG Hemoglobin ABG Oxyhemoglobin ABG Potassium ABG Glucose Oxyhemoglobin Carboxyhemoglobin Sodium Potassium Chloride 97.0 L Carbon Dioxide 37 H BUN Creatinine < 0.2 L Glucose 129 H POC Glucose 109 H 142 H Calcium 8.3 L Ferritin Total Bilirubin Alkaline Phosphatase Lactate Dehydrogenase Total Creatine Kinase CK-MB (CK-2) Rel Index Troponin T C-Reactive Protein Total Protein Albumin Prealbumin LDL Cholesterol Direct Arterial Blood Glucose Arterial Blood Ionized Calcium Urine WBC (Auto) 03/14/20 03/15/20 03/15/20 23:57 05:46 08:06 WBC 19.7 H RBC 3.29 L Hgb 9.1 L Hct 28.0 L MCV MCH RDW 15.9 H Plt Count Lymph % (Auto) Lymph # (Auto) [place] # (Auto) Seg Neutrophils % Seg Neuts % (Manual) Lymphocytes % (Manual) Monocytes % (Manual) Basophils % (Manual) Seg Neutrophils # Seg Neutrophils # Man Lymphocytes # (Manual) Monocytes # (Manual) Eosinophils # (Manual) Basophils # (Manual) PT INR D-Dimer ABG pH POC ABG pCO2 POC ABG pO2 ABG pO2 ABG HCO3 ABG O2 Saturation ABG Base Excess ABG Hemoglobin ABG Oxyhemoglobin ABG Potassium ABG Glucose Oxyhemoglobin Carboxyhemoglobin Sodium Potassium Chloride Carbon Dioxide BUN Creatinine Glucose POC Glucose 157 H 118 H Calcium Ferritin Total Bilirubin Alkaline Phosphatase Lactate Dehydrogenase Total Creatine Kinase CK-MB (CK-2) Rel Index Troponin T C-Reactive Protein Total Protein Albumin Prealbumin LDL Cholesterol Direct Arterial Blood Glucose Arterial Blood Ionized Calcium Urine WBC (Auto) 03/15/20 03/15/20 03/15/20 08:06 12:44 18:09 WBC RBC Hgb Hct MCV MCH RDW Plt Count Lymph % (Auto) Lymph # (Auto) [place] # (Auto) Seg Neutrophils % Seg Neuts % (Manual) Lymphocytes % (Manual) Monocytes % (Manual) Basophils % (Manual) Seg Neutrophils # Seg Neutrophils # Man Lymphocytes # (Manual) Monocytes # (Manual) Eosinophils # (Manual) Basophils # (Manual) PT INR D-Dimer ABG pH POC ABG pCO2 POC ABG pO2 ABG pO2 ABG HCO3 ABG O2 Saturation ABG Base Excess ABG Hemoglobin ABG Oxyhemoglobin ABG Potassium ABG Glucose Oxyhemoglobin Carboxyhemoglobin Sodium 136 L Potassium Chloride 93.6 L Carbon Dioxide 37 H BUN Creatinine < 0.2 L Glucose 132 H POC Glucose 151 H 164 H Calcium Ferritin Total Bilirubin Alkaline Phosphatase Lactate Dehydrogenase Total Creatine Kinase CK-MB (CK-2) Rel Index Troponin T C-Reactive Protein Total Protein Albumin Prealbumin LDL Cholesterol Direct Arterial Blood Glucose Arterial Blood Ionized Calcium Urine WBC (Auto) 03/15/20 03/16/20 03/16/20 23:26 05:39 11:58 WBC RBC Hgb Hct MCV MCH RDW Plt Count Lymph % (Auto) Lymph # (Auto) [place] # (Auto) Seg Neutrophils % Seg Neuts % (Manual) Lymphocytes % (Manual) Monocytes % (Manual) Basophils % (Manual) Seg Neutrophils # Seg Neutrophils # Man Lymphocytes # (Manual) Monocytes # (Manual) Eosinophils # (Manual) Basophils # (Manual) PT INR D-Dimer ABG pH POC ABG pCO2 POC ABG pO2 ABG pO2 ABG HCO3 ABG O2 Saturation ABG Base Excess ABG Hemoglobin ABG Oxyhemoglobin ABG Potassium ABG Glucose Oxyhemoglobin Carboxyhemoglobin Sodium Potassium Chloride Carbon Dioxide BUN Creatinine Glucose POC Glucose 136 H 116 H 109 H Calcium Ferritin Total Bilirubin Alkaline Phosphatase Lactate Dehydrogenase Total Creatine Kinase CK-MB (CK-2) Rel Index Troponin T C-Reactive Protein Total Protein Albumin Prealbumin LDL Cholesterol Direct Arterial Blood Glucose Arterial Blood Ionized Calcium Urine WBC (Auto) 03/16/20 03/17/20 03/17/20 23:56 04:40 04:40 WBC 18.0 H RBC 3.33 L Hgb 9.5 L Hct 28.8 L MCV MCH RDW 16.4 H Plt Count 499 H Lymph % (Auto) Lymph # (Auto) [place] # (Auto) Seg Neutrophils % Seg Neuts % (Manual) 82.0 H Lymphocytes % (Manual) 8.0 L Monocytes % (Manual) Basophils % (Manual) Seg Neutrophils # Seg Neutrophils # Man 14.8 H Lymphocytes # (Manual) Monocytes # (Manual) 1.3 H Eosinophils # (Manual) Basophils # (Manual) 0.2 H PT INR D-Dimer ABG pH POC ABG pCO2 POC ABG pO2 ABG pO2 ABG HCO3 ABG O2 Saturation ABG Base Excess ABG Hemoglobin ABG Oxyhemoglobin ABG Potassium ABG Glucose Oxyhemoglobin Carboxyhemoglobin Sodium Potassium Chloride 97.7 L Carbon Dioxide 32 H BUN Creatinine < 0.2 L Glucose 114 H POC Glucose 131 H Calcium Ferritin Total Bilirubin Alkaline Phosphatase Lactate Dehydrogenase Total Creatine Kinase CK-MB (CK-2) Rel Index Troponin T C-Reactive Protein Total Protein Albumin Prealbumin LDL Cholesterol Direct Arterial Blood Glucose Arterial Blood Ionized Calcium Urine WBC (Auto) 03/18/20 03/18/20 03/18/20 00:21 05:21 11:55 WBC RBC Hgb Hct MCV MCH RDW Plt Count Lymph % (Auto) Lymph # (Auto) [place] # (Auto) Seg Neutrophils % Seg Neuts % (Manual) Lymphocytes % (Manual) Monocytes % (Manual) Basophils % (Manual) Seg Neutrophils # Seg Neutrophils # Man Lymphocytes # (Manual) Monocytes # (Manual) Eosinophils # (Manual) Basophils # (Manual) PT INR D-Dimer ABG pH POC ABG pCO2 POC ABG pO2 ABG pO2 ABG HCO3 ABG O2 Saturation ABG Base Excess ABG Hemoglobin ABG Oxyhemoglobin ABG Potassium ABG Glucose Oxyhemoglobin Carboxyhemoglobin Sodium Potassium Chloride Carbon Dioxide BUN Creatinine Glucose POC Glucose 124 H 138 H 119 H Calcium Ferritin Total Bilirubin Alkaline Phosphatase Lactate Dehydrogenase Total Creatine Kinase CK-MB (CK-2) Rel Index Troponin T C-Reactive Protein Total Protein Albumin Prealbumin LDL Cholesterol Direct Arterial Blood Glucose Arterial Blood Ionized Calcium Urine WBC (Auto) 03/18/20 03/18/20 03/19/20 17:03 23:58 05:24 WBC RBC Hgb Hct MCV MCH RDW Plt Count Lymph % (Auto) Lymph # (Auto) [place] # (Auto) Seg Neutrophils % Seg Neuts % (Manual) Lymphocytes % (Manual) Monocytes % (Manual) Basophils % (Manual) Seg Neutrophils # Seg Neutrophils # Man Lymphocytes # (Manual) Monocytes # (Manual) Eosinophils # (Manual) Basophils # (Manual) PT INR D-Dimer ABG pH POC ABG pCO2 POC ABG pO2 ABG pO2 ABG HCO3 ABG O2 Saturation ABG Base Excess ABG Hemoglobin ABG Oxyhemoglobin ABG Potassium ABG Glucose Oxyhemoglobin Carboxyhemoglobin Sodium Potassium Chloride Carbon Dioxide BUN Creatinine Glucose POC Glucose 128 H 128 H 115 H Calcium Ferritin Total Bilirubin Alkaline Phosphatase Lactate Dehydrogenase Total Creatine Kinase CK-MB (CK-2) Rel Index Troponin T C-Reactive Protein Total Protein Albumin Prealbumin LDL Cholesterol Direct Arterial Blood Glucose Arterial Blood Ionized Calcium Urine WBC (Auto) 03/19/20 03/19/20 03/19/20 08:05 08:05 11:56 WBC 16.8 H RBC 3.36 L Hgb 9.4 L Hct 28.8 L MCV MCH RDW 17.4 H Plt Count 567 H Lymph % (Auto) 7.8 L Lymph # (Auto) [place] # (Auto) 1.2 H Seg Neutrophils % 83.5 H Seg Neuts % (Manual) Lymphocytes % (Manual) Monocytes % (Manual) Basophils % (Manual) Seg Neutrophils # 14.1 H Seg Neutrophils # Man Lymphocytes # (Manual) Monocytes # (Manual) Eosinophils # (Manual) Basophils # (Manual) PT INR D-Dimer ABG pH POC ABG pCO2 POC ABG pO2 ABG pO2 ABG HCO3 ABG O2 Saturation ABG Base Excess ABG Hemoglobin ABG Oxyhemoglobin ABG Potassium ABG Glucose Oxyhemoglobin Carboxyhemoglobin Sodium Potassium Chloride Carbon Dioxide 36 H BUN Creatinine < 0.2 L Glucose 135 H POC Glucose 128 H Calcium Ferritin Total Bilirubin Alkaline Phosphatase Lactate Dehydrogenase Total Creatine Kinase CK-MB (CK-2) Rel Index Troponin T C-Reactive Protein Total Protein Albumin Prealbumin LDL Cholesterol Direct Arterial Blood Glucose Arterial Blood Ionized Calcium Urine WBC (Auto) 03/19/20 03/20/20 03/20/20 23:59 05:12 16:52 WBC RBC Hgb Hct MCV MCH RDW Plt Count Lymph % (Auto) Lymph # (Auto) [place] # (Auto) Seg Neutrophils % Seg Neuts % (Manual) Lymphocytes % (Manual) Monocytes % (Manual) Basophils % (Manual) Seg Neutrophils # Seg Neutrophils # Man Lymphocytes # (Manual) Monocytes # (Manual) Eosinophils # (Manual) Basophils # (Manual) PT INR D-Dimer ABG pH POC ABG pCO2 POC ABG pO2 ABG pO2 ABG HCO3 ABG O2 Saturation ABG Base Excess ABG Hemoglobin ABG Oxyhemoglobin ABG Potassium ABG Glucose Oxyhemoglobin Carboxyhemoglobin Sodium Potassium Chloride Carbon Dioxide BUN Creatinine Glucose POC Glucose 120 H 131 H 124 H Calcium Ferritin Total Bilirubin Alkaline Phosphatase Lactate Dehydrogenase Total Creatine Kinase CK-MB (CK-2) Rel Index Troponin T C-Reactive Protein Total Protein Albumin Prealbumin LDL Cholesterol Direct Arterial Blood Glucose Arterial Blood Ionized Calcium Urine WBC (Auto) 03/20/20 03/21/20 03/21/20 23:35 04:50 07:35 WBC 15.2 H RBC 3.39 L Hgb 9.4 L Hct 29.4 L MCV MCH RDW 17.6 H Plt Count 518 H Lymph % (Auto) Lymph # (Auto) [place] # (Auto) Seg Neutrophils % Seg Neuts % (Manual) 83.0 H Lymphocytes % (Manual) 10.0 L Monocytes % (Manual) Basophils % (Manual) 2.0 H Seg Neutrophils # Seg Neutrophils # Man 12.6 H Lymphocytes # (Manual) Monocytes # (Manual) Eosinophils # (Manual) Basophils # (Manual) 0.3 H PT INR D-Dimer ABG pH POC ABG pCO2 POC ABG pO2 ABG pO2 ABG HCO3 ABG O2 Saturation ABG Base Excess ABG Hemoglobin ABG Oxyhemoglobin ABG Potassium ABG Glucose Oxyhemoglobin Carboxyhemoglobin Sodium Potassium Chloride Carbon Dioxide BUN Creatinine Glucose POC Glucose 125 H 127 H Calcium Ferritin Total Bilirubin Alkaline Phosphatase Lactate Dehydrogenase Total Creatine Kinase CK-MB (CK-2) Rel Index Troponin T C-Reactive Protein Total Protein Albumin Prealbumin LDL Cholesterol Direct Arterial Blood Glucose Arterial Blood Ionized Calcium Urine WBC (Auto) 03/21/20 03/21/20 03/21/20 07:35 11:45 17:22 WBC RBC Hgb Hct MCV MCH RDW Plt Count Lymph % (Auto) Lymph # (Auto) [place] # (Auto) Seg Neutrophils % Seg Neuts % (Manual) Lymphocytes % (Manual) Monocytes % (Manual) Basophils % (Manual) Seg Neutrophils # Seg Neutrophils # Man Lymphocytes # (Manual) Monocytes # (Manual) Eosinophils # (Manual) Basophils # (Manual) PT INR D-Dimer ABG pH POC ABG pCO2 POC ABG pO2 ABG pO2 ABG HCO3 ABG O2 Saturation ABG Base Excess ABG Hemoglobin ABG Oxyhemoglobin ABG Potassium ABG Glucose Oxyhemoglobin Carboxyhemoglobin Sodium 136 L Potassium Chloride 97.7 L Carbon Dioxide 32 H BUN Creatinine < 0.2 L Glucose 103 H POC Glucose 126 H 120 H Calcium Ferritin Total Bilirubin Alkaline Phosphatase Lactate Dehydrogenase Total Creatine Kinase CK-MB (CK-2) Rel Index Troponin T C-Reactive Protein Total Protein Albumin Prealbumin LDL Cholesterol Direct Arterial Blood Glucose Arterial Blood Ionized Calcium Urine WBC (Auto) 03/22/20 03/22/20 03/22/20 05:09 06:34 06:34 WBC 17.5 H RBC 3.52 L Hgb 10.0 L Hct 30.7 L MCV MCH RDW 17.5 H Plt Count 499 H Lymph % (Auto) Lymph # (Auto) [place] # (Auto) Seg Neutrophils % Seg Neuts % (Manual) 80.0 H Lymphocytes % (Manual) 10.0 L Monocytes % (Manual) Basophils % (Manual) Seg Neutrophils # Seg Neutrophils # Man 14.0 H Lymphocytes # (Manual) Monocytes # (Manual) Eosinophils # (Manual) Basophils # (Manual) PT INR D-Dimer ABG pH POC ABG pCO2 POC ABG pO2 ABG pO2 ABG HCO3 ABG O2 Saturation ABG Base Excess ABG Hemoglobin ABG Oxyhemoglobin ABG Potassium ABG Glucose Oxyhemoglobin Carboxyhemoglobin Sodium Potassium Chloride 96.6 L Carbon Dioxide 38 H BUN Creatinine < 0.2 L Glucose 139 H POC Glucose 125 H Calcium Ferritin Total Bilirubin Alkaline Phosphatase Lactate Dehydrogenase Total Creatine Kinase CK-MB (CK-2) Rel Index Troponin T C-Reactive Protein Total Protein Albumin Prealbumin LDL Cholesterol Direct Arterial Blood Glucose Arterial Blood Ionized Calcium Urine WBC (Auto) 03/22/20 03/22/20 03/22/20 11:45 18:00 23:32 WBC RBC Hgb Hct MCV MCH RDW Plt Count Lymph % (Auto) Lymph # (Auto) [place] # (Auto) Seg Neutrophils % Seg Neuts % (Manual) Lymphocytes % (Manual) Monocytes % (Manual) Basophils % (Manual) Seg Neutrophils # Seg Neutrophils # Man Lymphocytes # (Manual) Monocytes # (Manual) Eosinophils # (Manual) Basophils # (Manual) PT INR D-Dimer ABG pH POC ABG pCO2 POC ABG pO2 ABG pO2 ABG HCO3 ABG O2 Saturation ABG Base Excess ABG Hemoglobin ABG Oxyhemoglobin ABG Potassium ABG Glucose Oxyhemoglobin Carboxyhemoglobin Sodium Potassium Chloride Carbon Dioxide BUN Creatinine Glucose POC Glucose 135 H 133 H Calcium Ferritin Total Bilirubin Alkaline Phosphatase Lactate Dehydrogenase Total Creatine Kinase CK-MB (CK-2) Rel Index Troponin T 0.113 H* C-Reactive Protein Total Protein Albumin Prealbumin LDL Cholesterol Direct Arterial Blood Glucose Arterial Blood Ionized Calcium Urine WBC (Auto) 03/23/20 03/23/20 03/23/20 01:47 06:21 07:57 WBC RBC Hgb Hct MCV MCH RDW Plt Count Lymph % (Auto) Lymph # (Auto) [place] # (Auto) Seg Neutrophils % Seg Neuts % (Manual) Lymphocytes % (Manual) Monocytes % (Manual) Basophils % (Manual) Seg Neutrophils # Seg Neutrophils # Man Lymphocytes # (Manual) Monocytes # (Manual) Eosinophils # (Manual) Basophils # (Manual) PT INR D-Dimer ABG pH POC ABG pCO2 POC ABG pO2 ABG pO2 ABG HCO3 ABG O2 Saturation ABG Base Excess ABG Hemoglobin ABG Oxyhemoglobin ABG Potassium ABG Glucose Oxyhemoglobin Carboxyhemoglobin Sodium Potassium Chloride Carbon Dioxide BUN Creatinine Glucose POC Glucose 130 H Calcium Ferritin Total Bilirubin Alkaline Phosphatase Lactate Dehydrogenase Total Creatine Kinase CK-MB (CK-2) Rel Index Troponin T 0.143 H* D 0.105 H* D C-Reactive Protein Total Protein Albumin Prealbumin LDL Cholesterol Direct Arterial Blood Glucose Arterial Blood Ionized Calcium Urine WBC (Auto) 03/23/20 03/24/20 03/24/20 12:02 05:33 07:15 WBC 18.0 H RBC Hgb 11.0 L Hct 34.0 L MCV MCH RDW 17.4 H Plt Count 520 H Lymph % (Auto) Lymph # (Auto) [place] # (Auto) Seg Neutrophils % Seg Neuts % (Manual) 88.0 H Lymphocytes % (Manual) 7.0 L Monocytes % (Manual) Basophils % (Manual) Seg Neutrophils # Seg Neutrophils # Man 15.8 H Lymphocytes # (Manual) Monocytes # (Manual) Eosinophils # (Manual) Basophils # (Manual) PT INR D-Dimer ABG pH POC ABG pCO2 POC ABG pO2 ABG pO2 ABG HCO3 ABG O2 Saturation ABG Base Excess ABG Hemoglobin ABG Oxyhemoglobin ABG Potassium ABG Glucose Oxyhemoglobin Carboxyhemoglobin Sodium Potassium Chloride Carbon Dioxide BUN Creatinine Glucose POC Glucose 137 H 112 H Calcium Ferritin Total Bilirubin Alkaline Phosphatase Lactate Dehydrogenase Total Creatine Kinase CK-MB (CK-2) Rel Index Troponin T C-Reactive Protein Total Protein Albumin Prealbumin LDL Cholesterol Direct Arterial Blood Glucose Arterial Blood Ionized Calcium Urine WBC (Auto) 03/24/20 03/24/20 03/24/20 07:15 11:22 23:30 WBC RBC Hgb Hct MCV MCH RDW Plt Count Lymph % (Auto) Lymph # (Auto) [place] # (Auto) Seg Neutrophils % Seg Neuts % (Manual) Lymphocytes % (Manual) Monocytes % (Manual) Basophils % (Manual) Seg Neutrophils # Seg Neutrophils # Man Lymphocytes # (Manual) Monocytes # (Manual) Eosinophils # (Manual) Basophils # (Manual) PT INR D-Dimer ABG pH POC ABG pCO2 POC ABG pO2 ABG pO2 ABG HCO3 ABG O2 Saturation ABG Base Excess ABG Hemoglobin ABG Oxyhemoglobin ABG Potassium ABG Glucose Oxyhemoglobin Carboxyhemoglobin Sodium Potassium Chloride 96.6 L Carbon Dioxide 38 H BUN Creatinine < 0.2 L Glucose 141 H POC Glucose 130 H 120 H Calcium Ferritin Total Bilirubin Alkaline Phosphatase Lactate Dehydrogenase Total Creatine Kinase CK-MB (CK-2) Rel Index Troponin T C-Reactive Protein Total Protein Albumin Prealbumin LDL Cholesterol Direct Arterial Blood Glucose Arterial Blood Ionized Calcium Urine WBC (Auto) 03/25/20 03/25/20 03/25/20 05:48 17:53 23:18 WBC RBC Hgb Hct MCV MCH RDW Plt Count Lymph % (Auto) Lymph # (Auto) [place] # (Auto) Seg Neutrophils % Seg Neuts % (Manual) Lymphocytes % (Manual) Monocytes % (Manual) Basophils % (Manual) Seg Neutrophils # Seg Neutrophils # Man Lymphocytes # (Manual) Monocytes # (Manual) Eosinophils # (Manual) Basophils # (Manual) PT INR D-Dimer ABG pH POC ABG pCO2 POC ABG pO2 ABG pO2 ABG HCO3 ABG O2 Saturation ABG Base Excess ABG Hemoglobin ABG Oxyhemoglobin ABG Potassium ABG Glucose Oxyhemoglobin Carboxyhemoglobin Sodium Potassium Chloride Carbon Dioxide BUN Creatinine Glucose POC Glucose 124 H 109 H 131 H Calcium Ferritin Total Bilirubin Alkaline Phosphatase Lactate Dehydrogenase Total Creatine Kinase CK-MB (CK-2) Rel Index Troponin T C-Reactive Protein Total Protein Albumin Prealbumin LDL Cholesterol Direct Arterial Blood Glucose Arterial Blood Ionized Calcium Urine WBC (Auto) 03/26/20 03/26/20 03/26/20 05:21 08:49 08:49 WBC 19.7 H RBC Hgb 10.7 L Hct 33.5 L MCV MCH 27 L RDW 17.1 H Plt Count 480 H Lymph % (Auto) 5.7 L Lymph # (Auto) 1.1 L [place] # (Auto) 1.2 H Seg Neutrophils % 87.7 H Seg Neuts % (Manual) Lymphocytes % (Manual) Monocytes % (Manual) Basophils % (Manual) Seg Neutrophils # 17.2 H Seg Neutrophils # Man Lymphocytes # (Manual) Monocytes # (Manual) Eosinophils # (Manual) Basophils # (Manual) PT INR D-Dimer ABG pH POC ABG pCO2 POC ABG pO2 ABG pO2 ABG HCO3 ABG O2 Saturation ABG Base Excess ABG Hemoglobin ABG Oxyhemoglobin ABG Potassium ABG Glucose Oxyhemoglobin Carboxyhemoglobin Sodium Potassium Chloride 97.2 L Carbon Dioxide 36 H BUN Creatinine < 0.2 L Glucose 127 H POC Glucose 116 H Calcium Ferritin Total Bilirubin Alkaline Phosphatase Lactate Dehydrogenase Total Creatine Kinase CK-MB (CK-2) Rel Index Troponin T C-Reactive Protein Total Protein Albumin Prealbumin LDL Cholesterol Direct Arterial Blood Glucose Arterial Blood Ionized Calcium Urine WBC (Auto) 03/26/20 03/26/20 03/26/20 11:38 18:44 23:06 WBC RBC Hgb Hct MCV MCH RDW Plt Count Lymph % (Auto) Lymph # (Auto) [place] # (Auto) Seg Neutrophils % Seg Neuts % (Manual) Lymphocytes % (Manual) Monocytes % (Manual) Basophils % (Manual) Seg Neutrophils # Seg Neutrophils # Man Lymphocytes # (Manual) Monocytes # (Manual) Eosinophils # (Manual) Basophils # (Manual) PT INR D-Dimer ABG pH POC ABG pCO2 POC ABG pO2 ABG pO2 ABG HCO3 ABG O2 Saturation ABG Base Excess ABG Hemoglobin ABG Oxyhemoglobin ABG Potassium ABG Glucose Oxyhemoglobin Carboxyhemoglobin Sodium Potassium Chloride Carbon Dioxide BUN Creatinine Glucose POC Glucose 120 H 111 H 134 H Calcium Ferritin Total Bilirubin Alkaline Phosphatase Lactate Dehydrogenase Total Creatine Kinase CK-MB (CK-2) Rel Index Troponin T C-Reactive Protein Total Protein Albumin Prealbumin LDL Cholesterol Direct Arterial Blood Glucose Arterial Blood Ionized Calcium Urine WBC (Auto) 03/27/20 03/27/20 03/27/20 05:41 05:59 05:59 WBC 18.6 H RBC Hgb 10.1 L Hct 31.4 L MCV MCH RDW 17.2 H Plt Count Lymph % (Auto) 8.0 L Lymph # (Auto) [place] # (Auto) 1.2 H Seg Neutrophils % 84.7 H Seg Neuts % (Manual) Lymphocytes % (Manual) Monocytes % (Manual) Basophils % (Manual) Seg Neutrophils # 15.8 H Seg Neutrophils # Man Lymphocytes # (Manual) Monocytes # (Manual) Eosinophils # (Manual) Basophils # (Manual) PT INR D-Dimer ABG pH POC ABG pCO2 POC ABG pO2 ABG pO2 ABG HCO3 ABG O2 Saturation ABG Base Excess ABG Hemoglobin ABG Oxyhemoglobin ABG Potassium ABG Glucose Oxyhemoglobin Carboxyhemoglobin Sodium Potassium Chloride Carbon Dioxide 34 H BUN Creatinine < 0.2 L Glucose 127 H POC Glucose 129 H Calcium Ferritin Total Bilirubin Alkaline Phosphatase Lactate Dehydrogenase Total Creatine Kinase CK-MB (CK-2) Rel Index Troponin T C-Reactive Protein Total Protein Albumin Prealbumin LDL Cholesterol Direct Arterial Blood Glucose Arterial Blood Ionized Calcium Urine WBC (Auto) 03/27/20 03/27/20 03/28/20 17:28 23:22 05:23 WBC RBC Hgb Hct MCV MCH RDW Plt Count Lymph % (Auto) Lymph # (Auto) [place] # (Auto) Seg Neutrophils % Seg Neuts % (Manual) Lymphocytes % (Manual) Monocytes % (Manual) Basophils % (Manual) Seg Neutrophils # Seg Neutrophils # Man Lymphocytes # (Manual) Monocytes # (Manual) Eosinophils # (Manual) Basophils # (Manual) PT INR D-Dimer ABG pH POC ABG pCO2 POC ABG pO2 ABG pO2 ABG HCO3 ABG O2 Saturation ABG Base Excess ABG Hemoglobin ABG Oxyhemoglobin ABG Potassium ABG Glucose Oxyhemoglobin Carboxyhemoglobin Sodium Potassium Chloride Carbon Dioxide BUN Creatinine Glucose POC Glucose 108 H 119 H 129 H Calcium Ferritin Total Bilirubin Alkaline Phosphatase Lactate Dehydrogenase Total Creatine Kinase CK-MB (CK-2) Rel Index Troponin T C-Reactive Protein Total Protein Albumin Prealbumin LDL Cholesterol Direct Arterial Blood Glucose Arterial Blood Ionized Calcium Urine WBC (Auto) 03/28/20 03/28/20 03/28/20 10:28 10:28 11:36 WBC 23.6 H RBC 3.62 L Hgb 10.0 L Hct 30.8 L MCV MCH RDW 16.4 H Plt Count Lymph % (Auto) Lymph # (Auto) [place] # (Auto) Seg Neutrophils % Seg Neuts % (Manual) 89.0 H Lymphocytes % (Manual) 5.0 L Monocytes % (Manual) Basophils % (Manual) Seg Neutrophils # Seg Neutrophils # Man 21.0 H Lymphocytes # (Manual) Monocytes # (Manual) 1.2 H Eosinophils # (Manual) Basophils # (Manual) 0.2 H PT INR D-Dimer ABG pH POC ABG pCO2 POC ABG pO2 ABG pO2 ABG HCO3 ABG O2 Saturation ABG Base Excess ABG Hemoglobin ABG Oxyhemoglobin ABG Potassium ABG Glucose Oxyhemoglobin Carboxyhemoglobin Sodium 134 L Potassium Chloride 94.2 L Carbon Dioxide 35 H BUN Creatinine < 0.2 L Glucose 134 H POC Glucose Calcium Ferritin Total Bilirubin Alkaline Phosphatase Lactate Dehydrogenase Total Creatine Kinase CK-MB (CK-2) Rel Index Troponin T C-Reactive Protein Total Protein Albumin Prealbumin LDL Cholesterol Direct Arterial Blood Glucose Arterial Blood Ionized Calcium Urine WBC (Auto) 39.0 H 03/28/20 03/28/20 03/28/20 11:51 17:08 17:17 WBC RBC Hgb Hct MCV MCH RDW Plt Count Lymph % (Auto) Lymph # (Auto) [place] # (Auto) Seg Neutrophils % Seg Neuts % (Manual) Lymphocytes % (Manual) Monocytes % (Manual) Basophils % (Manual) Seg Neutrophils # Seg Neutrophils # Man Lymphocytes # (Manual) Monocytes # (Manual) Eosinophils # (Manual) Basophils # (Manual) PT INR D-Dimer ABG pH POC ABG pCO2 POC ABG pO2 ABG pO2 ABG HCO3 ABG O2 Saturation ABG Base Excess ABG Hemoglobin ABG Oxyhemoglobin ABG Potassium ABG Glucose Oxyhemoglobin Carboxyhemoglobin Sodium Potassium Chloride Carbon Dioxide BUN Creatinine Glucose POC Glucose 123 H 112 H Calcium Ferritin Total Bilirubin Alkaline Phosphatase Lactate Dehydrogenase Total Creatine Kinase 47 L CK-MB (CK-2) Rel Index 4.6 H Troponin T 0.090 H C-Reactive Protein Total Protein Albumin Prealbumin LDL Cholesterol Direct Arterial Blood Glucose Arterial Blood Ionized Calcium Urine WBC (Auto) 03/28/20 03/29/20 03/29/20 23:22 05:22 10:58 WBC RBC Hgb Hct MCV MCH RDW Plt Count Lymph % (Auto) Lymph # (Auto) [place] # (Auto) Seg Neutrophils % Seg Neuts % (Manual) Lymphocytes % (Manual) Monocytes % (Manual) Basophils % (Manual) Seg Neutrophils # Seg Neutrophils # Man Lymphocytes # (Manual) Monocytes # (Manual) Eosinophils # (Manual) Basophils # (Manual) PT INR D-Dimer ABG pH POC ABG pCO2 POC ABG pO2 ABG pO2 ABG HCO3 ABG O2 Saturation ABG Base Excess ABG Hemoglobin ABG Oxyhemoglobin ABG Potassium ABG Glucose Oxyhemoglobin Carboxyhemoglobin Sodium Potassium Chloride Carbon Dioxide BUN Creatinine Glucose POC Glucose 122 H 116 H 133 H Calcium Ferritin Total Bilirubin Alkaline Phosphatase Lactate Dehydrogenase Total Creatine Kinase CK-MB (CK-2) Rel Index Troponin T C-Reactive Protein Total Protein Albumin Prealbumin LDL Cholesterol Direct Arterial Blood Glucose Arterial Blood Ionized Calcium Urine WBC (Auto) 03/29/20 03/29/20 03/30/20 17:18 23:14 04:57 WBC RBC Hgb Hct MCV MCH RDW Plt Count Lymph % (Auto) Lymph # (Auto) [place] # (Auto) Seg Neutrophils % Seg Neuts % (Manual) Lymphocytes % (Manual) Monocytes % (Manual) Basophils % (Manual) Seg Neutrophils # Seg Neutrophils # Man Lymphocytes # (Manual) Monocytes # (Manual) Eosinophils # (Manual) Basophils # (Manual) PT INR D-Dimer ABG pH POC ABG pCO2 POC ABG pO2 ABG pO2 ABG HCO3 ABG O2 Saturation ABG Base Excess ABG Hemoglobin ABG Oxyhemoglobin ABG Potassium ABG Glucose Oxyhemoglobin Carboxyhemoglobin Sodium Potassium Chloride Carbon Dioxide BUN Creatinine Glucose POC Glucose 111 H 114 H 130 H Calcium Ferritin Total Bilirubin Alkaline Phosphatase Lactate Dehydrogenase Total Creatine Kinase CK-MB (CK-2) Rel Index Troponin T C-Reactive Protein Total Protein Albumin Prealbumin LDL Cholesterol Direct Arterial Blood Glucose Arterial Blood Ionized Calcium Urine WBC (Auto) 03/30/20 03/30/20 03/30/20 11:38 14:47 14:47 WBC 19.9 H RBC Hgb 10.9 L Hct 34.4 L MCV MCH 27 L RDW 16.5 H Plt Count 441 H Lymph % (Auto) 6.4 L Lymph # (Auto) [place] # (Auto) 1.4 H Seg Neutrophils % 86.1 H Seg Neuts % (Manual) Lymphocytes % (Manual) Monocytes % (Manual) Basophils % (Manual) Seg Neutrophils # 17.1 H Seg Neutrophils # Man Lymphocytes # (Manual) Monocytes # (Manual) Eosinophils # (Manual) Basophils # (Manual) PT INR D-Dimer ABG pH POC ABG pCO2 POC ABG pO2 ABG pO2 ABG HCO3 ABG O2 Saturation ABG Base Excess ABG Hemoglobin ABG Oxyhemoglobin ABG Potassium ABG Glucose Oxyhemoglobin Carboxyhemoglobin Sodium 133 L Potassium Chloride 94.6 L Carbon Dioxide 33 H BUN Creatinine < 0.2 L Glucose 194 H POC Glucose 139 H Calcium Ferritin Total Bilirubin Alkaline Phosphatase Lactate Dehydrogenase Total Creatine Kinase CK-MB (CK-2) Rel Index Troponin T C-Reactive Protein Total Protein Albumin 2.8 L Prealbumin LDL Cholesterol Direct Arterial Blood Glucose Arterial Blood Ionized Calcium Urine WBC (Auto) 03/30/20 03/31/20 03/31/20 17:07 05:02 15:21 WBC RBC Hgb Hct MCV MCH RDW Plt Count Lymph % (Auto) Lymph # (Auto) [place] # (Auto) Seg Neutrophils % Seg Neuts % (Manual) Lymphocytes % (Manual) Monocytes % (Manual) Basophils % (Manual) Seg Neutrophils # Seg Neutrophils # Man Lymphocytes # (Manual) Monocytes # (Manual) Eosinophils # (Manual) Basophils # (Manual) PT INR D-Dimer ABG pH POC ABG pCO2 POC ABG pO2 ABG pO2 ABG HCO3 ABG O2 Saturation ABG Base Excess ABG Hemoglobin ABG Oxyhemoglobin ABG Potassium ABG Glucose Oxyhemoglobin Carboxyhemoglobin Sodium Potassium Chloride Carbon Dioxide BUN Creatinine Glucose POC Glucose 163 H 108 H 110 H Calcium Ferritin Total Bilirubin Alkaline Phosphatase Lactate Dehydrogenase Total Creatine Kinase CK-MB (CK-2) Rel Index Troponin T C-Reactive Protein Total Protein Albumin Prealbumin LDL Cholesterol Direct Arterial Blood Glucose Arterial Blood Ionized Calcium Urine WBC (Auto) 03/31/20 03/31/20 04/01/20 17:58 23:19 05:09 WBC RBC Hgb Hct MCV MCH RDW Plt Count Lymph % (Auto) Lymph # (Auto) [place] # (Auto) Seg Neutrophils % Seg Neuts % (Manual) Lymphocytes % (Manual) Monocytes % (Manual) Basophils % (Manual) Seg Neutrophils # Seg Neutrophils # Man Lymphocytes # (Manual) Monocytes # (Manual) Eosinophils # (Manual) Basophils # (Manual) PT INR D-Dimer ABG pH POC ABG pCO2 POC ABG pO2 ABG pO2 ABG HCO3 ABG O2 Saturation ABG Base Excess ABG Hemoglobin ABG Oxyhemoglobin ABG Potassium ABG Glucose Oxyhemoglobin Carboxyhemoglobin Sodium Potassium Chloride Carbon Dioxide BUN Creatinine Glucose POC Glucose 110 H 131 H 124 H Calcium Ferritin Total Bilirubin Alkaline Phosphatase Lactate Dehydrogenase Total Creatine Kinase CK-MB (CK-2) Rel Index Troponin T C-Reactive Protein Total Protein Albumin Prealbumin LDL Cholesterol Direct Arterial Blood Glucose Arterial Blood Ionized Calcium Urine WBC (Auto) 04/01/20 04/01/20 04/01/20 11:50 17:01 23:21 WBC RBC Hgb Hct MCV MCH RDW Plt Count Lymph % (Auto) Lymph # (Auto) [place] # (Auto) Seg Neutrophils % Seg Neuts % (Manual) Lymphocytes % (Manual) Monocytes % (Manual) Basophils % (Manual) Seg Neutrophils # Seg Neutrophils # Man Lymphocytes # (Manual) Monocytes # (Manual) Eosinophils # (Manual) Basophils # (Manual) PT INR D-Dimer ABG pH POC ABG pCO2 POC ABG pO2 ABG pO2 ABG HCO3 ABG O2 Saturation ABG Base Excess ABG Hemoglobin ABG Oxyhemoglobin ABG Potassium ABG Glucose Oxyhemoglobin Carboxyhemoglobin Sodium Potassium Chloride Carbon Dioxide BUN Creatinine Glucose POC Glucose 136 H 115 H 124 H Calcium Ferritin Total Bilirubin Alkaline Phosphatase Lactate Dehydrogenase Total Creatine Kinase CK-MB (CK-2) Rel Index Troponin T C-Reactive Protein Total Protein Albumin Prealbumin LDL Cholesterol Direct Arterial Blood Glucose Arterial Blood Ionized Calcium Urine WBC (Auto) 04/02/20 04/02/20 04/02/20 05:27 11:58 17:58 WBC RBC Hgb Hct MCV MCH RDW Plt Count Lymph % (Auto) Lymph # (Auto) [place] # (Auto) Seg Neutrophils % Seg Neuts % (Manual) Lymphocytes % (Manual) Monocytes % (Manual) Basophils % (Manual) Seg Neutrophils # Seg Neutrophils # Man Lymphocytes # (Manual) Monocytes # (Manual) Eosinophils # (Manual) Basophils # (Manual) PT INR D-Dimer ABG pH POC ABG pCO2 POC ABG pO2 ABG pO2 ABG HCO3 ABG O2 Saturation ABG Base Excess ABG Hemoglobin ABG Oxyhemoglobin ABG Potassium ABG Glucose Oxyhemoglobin Carboxyhemoglobin Sodium Potassium Chloride Carbon Dioxide BUN Creatinine Glucose POC Glucose 117 H 133 H 122 H Calcium Ferritin Total Bilirubin Alkaline Phosphatase Lactate Dehydrogenase Total Creatine Kinase CK-MB (CK-2) Rel Index Troponin T C-Reactive Protein Total Protein Albumin Prealbumin LDL Cholesterol Direct Arterial Blood Glucose Arterial Blood Ionized Calcium Urine WBC (Auto) 04/02/20 04/03/20 04/03/20 23:12 05:11 11:11 WBC RBC Hgb Hct MCV MCH RDW Plt Count Lymph % (Auto) Lymph # (Auto) [place] # (Auto) Seg Neutrophils % Seg Neuts % (Manual) Lymphocytes % (Manual) Monocytes % (Manual) Basophils % (Manual) Seg Neutrophils # Seg Neutrophils # Man Lymphocytes # (Manual) Monocytes # (Manual) Eosinophils # (Manual) Basophils # (Manual) PT INR D-Dimer ABG pH POC ABG pCO2 POC ABG pO2 ABG pO2 ABG HCO3 ABG O2 Saturation ABG Base Excess ABG Hemoglobin ABG Oxyhemoglobin ABG Potassium ABG Glucose Oxyhemoglobin Carboxyhemoglobin Sodium Potassium Chloride Carbon Dioxide BUN Creatinine Glucose POC Glucose 130 H 139 H 136 H Calcium Ferritin Total Bilirubin Alkaline Phosphatase Lactate Dehydrogenase Total Creatine Kinase CK-MB (CK-2) Rel Index Troponin T C-Reactive Protein Total Protein Albumin Prealbumin LDL Cholesterol Direct Arterial Blood Glucose Arterial Blood Ionized Calcium Urine WBC (Auto) 04/03/20 04/03/20 04/04/20 16:51 23:25 05:29 WBC RBC Hgb Hct MCV MCH RDW Plt Count Lymph % (Auto) Lymph # (Auto) [place] # (Auto) Seg Neutrophils % Seg Neuts % (Manual) Lymphocytes % (Manual) Monocytes % (Manual) Basophils % (Manual) Seg Neutrophils # Seg Neutrophils # Man Lymphocytes # (Manual) Monocytes # (Manual) Eosinophils # (Manual) Basophils # (Manual) PT INR D-Dimer ABG pH POC ABG pCO2 POC ABG pO2 ABG pO2 ABG HCO3 ABG O2 Saturation ABG Base Excess ABG Hemoglobin ABG Oxyhemoglobin ABG Potassium ABG Glucose Oxyhemoglobin Carboxyhemoglobin Sodium Potassium Chloride Carbon Dioxide BUN Creatinine Glucose POC Glucose 118 H 111 H 126 H Calcium Ferritin Total Bilirubin Alkaline Phosphatase Lactate Dehydrogenase Total Creatine Kinase CK-MB (CK-2) Rel Index Troponin T C-Reactive Protein Total Protein Albumin Prealbumin LDL Cholesterol Direct Arterial Blood Glucose Arterial Blood Ionized Calcium Urine WBC (Auto) 04/04/20 04/04/20 04/04/20 11:47 17:41 23:05 WBC RBC Hgb Hct MCV MCH RDW Plt Count Lymph % (Auto) Lymph # (Auto) [place] # (Auto) Seg Neutrophils % Seg Neuts % (Manual) Lymphocytes % (Manual) Monocytes % (Manual) Basophils % (Manual) Seg Neutrophils # Seg Neutrophils # Man Lymphocytes # (Manual) Monocytes # (Manual) Eosinophils # (Manual) Basophils # (Manual) PT INR D-Dimer ABG pH POC ABG pCO2 POC ABG pO2 ABG pO2 ABG HCO3 ABG O2 Saturation ABG Base Excess ABG Hemoglobin ABG Oxyhemoglobin ABG Potassium ABG Glucose Oxyhemoglobin Carboxyhemoglobin Sodium Potassium Chloride Carbon Dioxide BUN Creatinine Glucose POC Glucose 123 H 120 H 119 H Calcium Ferritin Total Bilirubin Alkaline Phosphatase Lactate Dehydrogenase Total Creatine Kinase CK-MB (CK-2) Rel Index Troponin T C-Reactive Protein Total Protein Albumin Prealbumin LDL Cholesterol Direct Arterial Blood Glucose Arterial Blood Ionized Calcium Urine WBC (Auto) 04/05/20 04/05/20 04/05/20 05:14 12:16 18:48 WBC RBC Hgb Hct MCV MCH RDW Plt Count Lymph % (Auto) Lymph # (Auto) [place] # (Auto) Seg Neutrophils % Seg Neuts % (Manual) Lymphocytes % (Manual) Monocytes % (Manual) Basophils % (Manual) Seg Neutrophils # Seg Neutrophils # Man Lymphocytes # (Manual) Monocytes # (Manual) Eosinophils # (Manual) Basophils # (Manual) PT INR D-Dimer ABG pH POC ABG pCO2 POC ABG pO2 ABG pO2 ABG HCO3 ABG O2 Saturation ABG Base Excess ABG Hemoglobin ABG Oxyhemoglobin ABG Potassium ABG Glucose Oxyhemoglobin Carboxyhemoglobin Sodium Potassium Chloride Carbon Dioxide BUN Creatinine Glucose POC Glucose 123 H 148 H 106 H Calcium Ferritin Total Bilirubin Alkaline Phosphatase Lactate Dehydrogenase Total Creatine Kinase CK-MB (CK-2) Rel Index Troponin T C-Reactive Protein Total Protein Albumin Prealbumin LDL Cholesterol Direct Arterial Blood Glucose Arterial Blood Ionized Calcium Urine WBC (Auto) 04/06/20 04/06/20 04/06/20 00:47 03:26 08:24 WBC RBC Hgb Hct MCV MCH RDW Plt Count Lymph % (Auto) Lymph # (Auto) [place] # (Auto) Seg Neutrophils % Seg Neuts % (Manual) Lymphocytes % (Manual) Monocytes % (Manual) Basophils % (Manual) Seg Neutrophils # Seg Neutrophils # Man Lymphocytes # (Manual) Monocytes # (Manual) Eosinophils # (Manual) Basophils # (Manual) PT INR D-Dimer ABG pH POC ABG pCO2 POC ABG pO2 ABG pO2 ABG HCO3 ABG O2 Saturation ABG Base Excess ABG Hemoglobin ABG Oxyhemoglobin ABG Potassium ABG Glucose Oxyhemoglobin Carboxyhemoglobin Sodium Potassium Chloride Carbon Dioxide BUN Creatinine Glucose POC Glucose 129 H 134 H 131 H Calcium Ferritin Total Bilirubin Alkaline Phosphatase Lactate Dehydrogenase Total Creatine Kinase CK-MB (CK-2) Rel Index Troponin T C-Reactive Protein Total Protein Albumin Prealbumin LDL Cholesterol Direct Arterial Blood Glucose Arterial Blood Ionized Calcium Urine WBC (Auto) 04/06/20 04/06/20 04/06/20 11:16 16:27 23:01 WBC RBC Hgb Hct MCV MCH RDW Plt Count Lymph % (Auto) Lymph # (Auto) [place] # (Auto) Seg Neutrophils % Seg Neuts % (Manual) Lymphocytes % (Manual) Monocytes % (Manual) Basophils % (Manual) Seg Neutrophils # Seg Neutrophils # Man Lymphocytes # (Manual) Monocytes # (Manual) Eosinophils # (Manual) Basophils # (Manual) PT INR D-Dimer ABG pH POC ABG pCO2 POC ABG pO2 ABG pO2 ABG HCO3 ABG O2 Saturation ABG Base Excess ABG Hemoglobin ABG Oxyhemoglobin ABG Potassium ABG Glucose Oxyhemoglobin Carboxyhemoglobin Sodium Potassium Chloride Carbon Dioxide BUN Creatinine Glucose POC Glucose 131 H 107 H 125 H Calcium Ferritin Total Bilirubin Alkaline Phosphatase Lactate Dehydrogenase Total Creatine Kinase CK-MB (CK-2) Rel Index Troponin T C-Reactive Protein Total Protein Albumin Prealbumin LDL Cholesterol Direct Arterial Blood Glucose Arterial Blood Ionized Calcium Urine WBC (Auto) 04/07/20 04/07/20 04/07/20 05:24 12:41 17:40 WBC RBC Hgb Hct MCV MCH RDW Plt Count Lymph % (Auto) Lymph # (Auto) [place] # (Auto) Seg Neutrophils % Seg Neuts % (Manual) Lymphocytes % (Manual) Monocytes % (Manual) Basophils % (Manual) Seg Neutrophils # Seg Neutrophils # Man Lymphocytes # (Manual) Monocytes # (Manual) Eosinophils # (Manual) Basophils # (Manual) PT INR D-Dimer ABG pH POC ABG pCO2 POC ABG pO2 ABG pO2 ABG HCO3 ABG O2 Saturation ABG Base Excess ABG Hemoglobin ABG Oxyhemoglobin ABG Potassium ABG Glucose Oxyhemoglobin Carboxyhemoglobin Sodium Potassium Chloride Carbon Dioxide BUN Creatinine Glucose POC Glucose 125 H 145 H 123 H Calcium Ferritin Total Bilirubin Alkaline Phosphatase Lactate Dehydrogenase Total Creatine Kinase CK-MB (CK-2) Rel Index Troponin T C-Reactive Protein Total Protein Albumin Prealbumin LDL Cholesterol Direct Arterial Blood Glucose Arterial Blood Ionized Calcium Urine WBC (Auto) 04/07/20 04/08/20 04/08/20 23:22 05:40 11:29 WBC RBC Hgb Hct MCV MCH RDW Plt Count Lymph % (Auto) Lymph # (Auto) [place] # (Auto) Seg Neutrophils % Seg Neuts % (Manual) Lymphocytes % (Manual) Monocytes % (Manual) Basophils % (Manual) Seg Neutrophils # Seg Neutrophils # Man Lymphocytes # (Manual) Monocytes # (Manual) Eosinophils # (Manual) Basophils # (Manual) PT INR D-Dimer ABG pH POC ABG pCO2 POC ABG pO2 ABG pO2 ABG HCO3 ABG O2 Saturation ABG Base Excess ABG Hemoglobin ABG Oxyhemoglobin ABG Potassium ABG Glucose Oxyhemoglobin Carboxyhemoglobin Sodium Potassium Chloride Carbon Dioxide BUN Creatinine Glucose POC Glucose 133 H 125 H 116 H Calcium Ferritin Total Bilirubin Alkaline Phosphatase Lactate Dehydrogenase Total Creatine Kinase CK-MB (CK-2) Rel Index Troponin T C-Reactive Protein Total Protein Albumin Prealbumin LDL Cholesterol Direct Arterial Blood Glucose Arterial Blood Ionized Calcium Urine WBC (Auto) 04/08/20 04/09/20 04/09/20 17:43 05:47 12:22 WBC RBC Hgb Hct MCV MCH RDW Plt Count Lymph % (Auto) Lymph # (Auto) [place] # (Auto) Seg Neutrophils % Seg Neuts % (Manual) Lymphocytes % (Manual) Monocytes % (Manual) Basophils % (Manual) Seg Neutrophils # Seg Neutrophils # Man Lymphocytes # (Manual) Monocytes # (Manual) Eosinophils # (Manual) Basophils # (Manual) PT INR D-Dimer ABG pH POC ABG pCO2 POC ABG pO2 ABG pO2 ABG HCO3 ABG O2 Saturation ABG Base Excess ABG Hemoglobin ABG Oxyhemoglobin ABG Potassium ABG Glucose Oxyhemoglobin Carboxyhemoglobin Sodium Potassium Chloride Carbon Dioxide BUN Creatinine Glucose POC Glucose 123 H 108 H 116 H Calcium Ferritin Total Bilirubin Alkaline Phosphatase Lactate Dehydrogenase Total Creatine Kinase CK-MB (CK-2) Rel Index Troponin T C-Reactive Protein Total Protein Albumin Prealbumin LDL Cholesterol Direct Arterial Blood Glucose Arterial Blood Ionized Calcium Urine WBC (Auto) 04/09/20 04/09/20 04/10/20 17:24 23:52 06:10 WBC RBC Hgb Hct MCV MCH RDW Plt Count Lymph % (Auto) Lymph # (Auto) [place] # (Auto) Seg Neutrophils % Seg Neuts % (Manual) Lymphocytes % (Manual) Monocytes % (Manual) Basophils % (Manual) Seg Neutrophils # Seg Neutrophils # Man Lymphocytes # (Manual) Monocytes # (Manual) Eosinophils # (Manual) Basophils # (Manual) PT INR D-Dimer ABG pH POC ABG pCO2 POC ABG pO2 ABG pO2 ABG HCO3 ABG O2 Saturation ABG Base Excess ABG Hemoglobin ABG Oxyhemoglobin ABG Potassium ABG Glucose Oxyhemoglobin Carboxyhemoglobin Sodium Potassium Chloride Carbon Dioxide BUN Creatinine Glucose POC Glucose 108 H 126 H 122 H Calcium Ferritin Total Bilirubin Alkaline Phosphatase Lactate Dehydrogenase Total Creatine Kinase CK-MB (CK-2) Rel Index Troponin T C-Reactive Protein Total Protein Albumin Prealbumin LDL Cholesterol Direct Arterial Blood Glucose Arterial Blood Ionized Calcium Urine WBC (Auto) 04/10/20 04/10/20 04/10/20 11:27 18:11 23:24 WBC RBC Hgb Hct MCV MCH RDW Plt Count Lymph % (Auto) Lymph # (Auto) [place] # (Auto) Seg Neutrophils % Seg Neuts % (Manual) Lymphocytes % (Manual) Monocytes % (Manual) Basophils % (Manual) Seg Neutrophils # Seg Neutrophils # Man Lymphocytes # (Manual) Monocytes # (Manual) Eosinophils # (Manual) Basophils # (Manual) PT INR D-Dimer ABG pH POC ABG pCO2 POC ABG pO2 ABG pO2 ABG HCO3 ABG O2 Saturation ABG Base Excess ABG Hemoglobin ABG Oxyhemoglobin ABG Potassium ABG Glucose Oxyhemoglobin Carboxyhemoglobin Sodium Potassium Chloride Carbon Dioxide BUN Creatinine Glucose POC Glucose 129 H 125 H 107 H Calcium Ferritin Total Bilirubin Alkaline Phosphatase Lactate Dehydrogenase Total Creatine Kinase CK-MB (CK-2) Rel Index Troponin T C-Reactive Protein Total Protein Albumin Prealbumin LDL Cholesterol Direct Arterial Blood Glucose Arterial Blood Ionized Calcium Urine WBC (Auto) 04/11/20 04/11/20 04/11/20 05:28 11:46 23:49 WBC RBC Hgb Hct MCV MCH RDW Plt Count Lymph % (Auto) Lymph # (Auto) [place] # (Auto) Seg Neutrophils % Seg Neuts % (Manual) Lymphocytes % (Manual) Monocytes % (Manual) Basophils % (Manual) Seg Neutrophils # Seg Neutrophils # Man Lymphocytes # (Manual) Monocytes # (Manual) Eosinophils # (Manual) Basophils # (Manual) PT INR D-Dimer ABG pH POC ABG pCO2 POC ABG pO2 ABG pO2 ABG HCO3 ABG O2 Saturation ABG Base Excess ABG Hemoglobin ABG Oxyhemoglobin ABG Potassium ABG Glucose Oxyhemoglobin Carboxyhemoglobin Sodium Potassium Chloride Carbon Dioxide BUN Creatinine Glucose POC Glucose 122 H 122 H 116 H Calcium Ferritin Total Bilirubin Alkaline Phosphatase Lactate Dehydrogenase Total Creatine Kinase CK-MB (CK-2) Rel Index Troponin T C-Reactive Protein Total Protein Albumin Prealbumin LDL Cholesterol Direct Arterial Blood Glucose Arterial Blood Ionized Calcium Urine WBC (Auto) 04/12/20 04/12/20 04/12/20 09:07 09:07 11:39 WBC 13.1 H RBC 3.59 L Hgb 9.5 L Hct 29.8 L MCV 83 L MCH 26 L RDW 16.6 H Plt Count 591 H Lymph % (Auto) Lymph # (Auto) [place] # (Auto) Seg Neutrophils % Seg Neuts % (Manual) 86.0 H Lymphocytes % (Manual) 7.0 L Monocytes % (Manual) Basophils % (Manual) Seg Neutrophils # Seg Neutrophils # Man 11.3 H Lymphocytes # (Manual) 0.9 L Monocytes # (Manual) Eosinophils # (Manual) Basophils # (Manual) PT INR D-Dimer ABG pH POC ABG pCO2 POC ABG pO2 ABG pO2 ABG HCO3 ABG O2 Saturation ABG Base Excess ABG Hemoglobin ABG Oxyhemoglobin ABG Potassium ABG Glucose Oxyhemoglobin Carboxyhemoglobin Sodium Potassium Chloride Carbon Dioxide 36 H BUN Creatinine < 0.2 L Glucose 132 H POC Glucose 136 H Calcium Ferritin Total Bilirubin Alkaline Phosphatase Lactate Dehydrogenase Total Creatine Kinase CK-MB (CK-2) Rel Index Troponin T C-Reactive Protein Total Protein Albumin 2.7 L Prealbumin LDL Cholesterol Direct Arterial Blood Glucose Arterial Blood Ionized Calcium Urine WBC (Auto) 04/12/20 04/12/20 04/13/20 18:13 23:07 05:45 WBC RBC Hgb Hct MCV MCH RDW Plt Count Lymph % (Auto) Lymph # (Auto) [place] # (Auto) Seg Neutrophils % Seg Neuts % (Manual) Lymphocytes % (Manual) Monocytes % (Manual) Basophils % (Manual) Seg Neutrophils # Seg Neutrophils # Man Lymphocytes # (Manual) Monocytes # (Manual) Eosinophils # (Manual) Basophils # (Manual) PT INR D-Dimer ABG pH POC ABG pCO2 POC ABG pO2 ABG pO2 ABG HCO3 ABG O2 Saturation ABG Base Excess ABG Hemoglobin ABG Oxyhemoglobin ABG Potassium ABG Glucose Oxyhemoglobin Carboxyhemoglobin Sodium Potassium Chloride Carbon Dioxide BUN Creatinine Glucose POC Glucose 107 H 106 H 125 H Calcium Ferritin Total Bilirubin Alkaline Phosphatase Lactate Dehydrogenase Total Creatine Kinase CK-MB (CK-2) Rel Index Troponin T C-Reactive Protein Total Protein Albumin Prealbumin LDL Cholesterol Direct Arterial Blood Glucose Arterial Blood Ionized Calcium Urine WBC (Auto) 04/13/20 04/13/20 04/13/20 11:18 17:56 23:33 WBC RBC Hgb Hct MCV MCH RDW Plt Count Lymph % (Auto) Lymph # (Auto) [place] # (Auto) Seg Neutrophils % Seg Neuts % (Manual) Lymphocytes % (Manual) Monocytes % (Manual) Basophils % (Manual) Seg Neutrophils # Seg Neutrophils # Man Lymphocytes # (Manual) Monocytes # (Manual) Eosinophils # (Manual) Basophils # (Manual) PT INR D-Dimer ABG pH POC ABG pCO2 POC ABG pO2 ABG pO2 ABG HCO3 ABG O2 Saturation ABG Base Excess ABG Hemoglobin ABG Oxyhemoglobin ABG Potassium ABG Glucose Oxyhemoglobin Carboxyhemoglobin Sodium Potassium Chloride Carbon Dioxide BUN Creatinine Glucose POC Glucose 133 H 110 H 114 H Calcium Ferritin Total Bilirubin Alkaline Phosphatase Lactate Dehydrogenase Total Creatine Kinase CK-MB (CK-2) Rel Index Troponin T C-Reactive Protein Total Protein Albumin Prealbumin LDL Cholesterol Direct Arterial Blood Glucose Arterial Blood Ionized Calcium Urine WBC (Auto) 04/14/20 04/14/20 04/14/20 05:58 11:45 17:48 WBC RBC Hgb Hct MCV MCH RDW Plt Count Lymph % (Auto) Lymph # (Auto) [place] # (Auto) Seg Neutrophils % Seg Neuts % (Manual) Lymphocytes % (Manual) Monocytes % (Manual) Basophils % (Manual) Seg Neutrophils # Seg Neutrophils # Man Lymphocytes # (Manual) Monocytes # (Manual) Eosinophils # (Manual) Basophils # (Manual) PT INR D-Dimer ABG pH POC ABG pCO2 POC ABG pO2 ABG pO2 ABG HCO3 ABG O2 Saturation ABG Base Excess ABG Hemoglobin ABG Oxyhemoglobin ABG Potassium ABG Glucose Oxyhemoglobin Carboxyhemoglobin Sodium Potassium Chloride Carbon Dioxide BUN Creatinine Glucose POC Glucose 115 H 122 H 124 H Calcium Ferritin Total Bilirubin Alkaline Phosphatase Lactate Dehydrogenase Total Creatine Kinase CK-MB (CK-2) Rel Index Troponin T C-Reactive Protein Total Protein Albumin Prealbumin LDL Cholesterol Direct Arterial Blood Glucose Arterial Blood Ionized Calcium Urine WBC (Auto) 04/15/20 04/15/20 04/15/20 00:11 05:38 11:31 WBC RBC Hgb Hct MCV MCH RDW Plt Count Lymph % (Auto) Lymph # (Auto) [place] # (Auto) Seg Neutrophils % Seg Neuts % (Manual) Lymphocytes % (Manual) Monocytes % (Manual) Basophils % (Manual) Seg Neutrophils # Seg Neutrophils # Man Lymphocytes # (Manual) Monocytes # (Manual) Eosinophils # (Manual) Basophils # (Manual) PT INR D-Dimer ABG pH POC ABG pCO2 POC ABG pO2 ABG pO2 ABG HCO3 ABG O2 Saturation ABG Base Excess ABG Hemoglobin ABG Oxyhemoglobin ABG Potassium ABG Glucose Oxyhemoglobin Carboxyhemoglobin Sodium Potassium Chloride Carbon Dioxide BUN Creatinine Glucose POC Glucose 120 H 109 H 123 H Calcium Ferritin Total Bilirubin Alkaline Phosphatase Lactate Dehydrogenase Total Creatine Kinase CK-MB (CK-2) Rel Index Troponin T C-Reactive Protein Total Protein Albumin Prealbumin LDL Cholesterol Direct Arterial Blood Glucose Arterial Blood Ionized Calcium Urine WBC (Auto) 04/15/20 04/16/20 04/16/20 17:35 06:00 11:29 WBC RBC Hgb Hct MCV MCH RDW Plt Count Lymph % (Auto) Lymph # (Auto) [place] # (Auto) Seg Neutrophils % Seg Neuts % (Manual) Lymphocytes % (Manual) Monocytes % (Manual) Basophils % (Manual) Seg Neutrophils # Seg Neutrophils # Man Lymphocytes # (Manual) Monocytes # (Manual) Eosinophils # (Manual) Basophils # (Manual) PT INR D-Dimer ABG pH POC ABG pCO2 POC ABG pO2 ABG pO2 ABG HCO3 ABG O2 Saturation ABG Base Excess ABG Hemoglobin ABG Oxyhemoglobin ABG Potassium ABG Glucose Oxyhemoglobin Carboxyhemoglobin Sodium Potassium Chloride Carbon Dioxide BUN Creatinine Glucose POC Glucose 111 H 142 H 108 H Calcium Ferritin Total Bilirubin Alkaline Phosphatase Lactate Dehydrogenase Total Creatine Kinase CK-MB (CK-2) Rel Index Troponin T C-Reactive Protein Total Protein Albumin Prealbumin LDL Cholesterol Direct Arterial Blood Glucose Arterial Blood Ionized Calcium Urine WBC (Auto) 04/17/20 04/17/20 04/17/20 05:09 06:53 06:53 WBC 14.2 H RBC Hgb 10.1 L Hct 31.5 L MCV MCH 27 L RDW 17.2 H Plt Count 643 H Lymph % (Auto) Lymph # (Auto) [place] # (Auto) Seg Neutrophils % Seg Neuts % (Manual) Lymphocytes % (Manual) Monocytes % (Manual) Basophils % (Manual) Seg Neutrophils # Seg Neutrophils # Man Lymphocytes # (Manual) Monocytes # (Manual) Eosinophils # (Manual) Basophils # (Manual) PT INR D-Dimer ABG pH POC ABG pCO2 POC ABG pO2 ABG pO2 ABG HCO3 ABG O2 Saturation ABG Base Excess ABG Hemoglobin ABG Oxyhemoglobin ABG Potassium ABG Glucose Oxyhemoglobin Carboxyhemoglobin Sodium Potassium Chloride 97.7 L Carbon Dioxide 38 H BUN Creatinine < 0.2 L Glucose 126 H POC Glucose 131 H Calcium Ferritin Total Bilirubin Alkaline Phosphatase Lactate Dehydrogenase Total Creatine Kinase CK-MB (CK-2) Rel Index Troponin T C-Reactive Protein Total Protein Albumin Prealbumin LDL Cholesterol Direct Arterial Blood Glucose Arterial Blood Ionized Calcium Urine WBC (Auto) 04/17/20 04/18/20 04/18/20 11:21 00:23 04:01 WBC 15.3 H RBC Hgb 10.1 L Hct 31.9 L MCV 82 L MCH 26 L RDW 17.2 H Plt Count 665 H Lymph % (Auto) 12.9 L Lymph # (Auto) [place] # (Auto) 1.1 H Seg Neutrophils % 78.0 H Seg Neuts % (Manual) Lymphocytes % (Manual) Monocytes % (Manual) Basophils % (Manual) Seg Neutrophils # 11.9 H Seg Neutrophils # Man Lymphocytes # (Manual) Monocytes # (Manual) Eosinophils # (Manual) Basophils # (Manual) PT INR D-Dimer ABG pH POC ABG pCO2 POC ABG pO2 ABG pO2 ABG HCO3 ABG O2 Saturation ABG Base Excess ABG Hemoglobin ABG Oxyhemoglobin ABG Potassium ABG Glucose Oxyhemoglobin Carboxyhemoglobin Sodium Potassium Chloride Carbon Dioxide BUN Creatinine Glucose POC Glucose 140 H 125 H Calcium Ferritin Total Bilirubin Alkaline Phosphatase Lactate Dehydrogenase Total Creatine Kinase CK-MB (CK-2) Rel Index Troponin T C-Reactive Protein Total Protein Albumin Prealbumin LDL Cholesterol Direct Arterial Blood Glucose Arterial Blood Ionized Calcium Urine WBC (Auto) 04/18/20 04/18/20 04/18/20 04:01 11:29 17:30 WBC RBC Hgb Hct MCV MCH RDW Plt Count Lymph % (Auto) Lymph # (Auto) [place] # (Auto) Seg Neutrophils % Seg Neuts % (Manual) Lymphocytes % (Manual) Monocytes % (Manual) Basophils % (Manual) Seg Neutrophils # Seg Neutrophils # Man Lymphocytes # (Manual) Monocytes # (Manual) Eosinophils # (Manual) Basophils # (Manual) PT INR D-Dimer ABG pH POC ABG pCO2 POC ABG pO2 ABG pO2 ABG HCO3 ABG O2 Saturation ABG Base Excess ABG Hemoglobin ABG Oxyhemoglobin ABG Potassium ABG Glucose Oxyhemoglobin Carboxyhemoglobin Sodium Potassium Chloride 97.0 L Carbon Dioxide 38 H BUN Creatinine < 0.2 L Glucose 117 H POC Glucose 136 H 107 H Calcium Ferritin Total Bilirubin Alkaline Phosphatase Lactate Dehydrogenase Total Creatine Kinase CK-MB (CK-2) Rel Index Troponin T C-Reactive Protein Total Protein Albumin Prealbumin LDL Cholesterol Direct Arterial Blood Glucose Arterial Blood Ionized Calcium Urine WBC (Auto) 04/18/20 04/19/20 04/19/20 23:19 06:51 06:51 WBC 12.2 H RBC Hgb 9.8 L Hct 31.1 L MCV 82 L MCH 26 L RDW 17.2 H Plt Count 549 H Lymph % (Auto) 6.5 L Lymph # (Auto) 0.8 L [place] # (Auto) Seg Neutrophils % 86.7 H Seg Neuts % (Manual) Lymphocytes % (Manual) Monocytes % (Manual) Basophils % (Manual) Seg Neutrophils # 10.6 H Seg Neutrophils # Man Lymphocytes # (Manual) Monocytes # (Manual) Eosinophils # (Manual) Basophils # (Manual) PT INR D-Dimer ABG pH POC ABG pCO2 POC ABG pO2 ABG pO2 ABG HCO3 ABG O2 Saturation ABG Base Excess ABG Hemoglobin ABG Oxyhemoglobin ABG Potassium ABG Glucose Oxyhemoglobin Carboxyhemoglobin Sodium Potassium Chloride 97.8 L Carbon Dioxide 38 H BUN Creatinine < 0.2 L Glucose 123 H POC Glucose 127 H Calcium Ferritin Total Bilirubin Alkaline Phosphatase Lactate Dehydrogenase Total Creatine Kinase CK-MB (CK-2) Rel Index Troponin T C-Reactive Protein Total Protein Albumin Prealbumin LDL Cholesterol Direct Arterial Blood Glucose Arterial Blood Ionized Calcium Urine WBC (Auto) 04/19/20 13:41 WBC RBC Hgb Hct MCV MCH RDW Plt Count Lymph % (Auto) Lymph # (Auto) [place] # (Auto) Seg Neutrophils % Seg Neuts % (Manual) Lymphocytes % (Manual) Monocytes % (Manual) Basophils % (Manual) Seg Neutrophils # Seg Neutrophils # Man Lymphocytes # (Manual) Monocytes # (Manual) Eosinophils # (Manual) Basophils # (Manual) PT INR D-Dimer ABG pH POC ABG pCO2 POC ABG pO2 ABG pO2 ABG HCO3 ABG O2 Saturation ABG Base Excess ABG Hemoglobin ABG Oxyhemoglobin ABG Potassium ABG Glucose Oxyhemoglobin Carboxyhemoglobin Sodium Potassium Chloride Carbon Dioxide BUN Creatinine Glucose POC Glucose 116 H Calcium Ferritin Total Bilirubin Alkaline Phosphatase Lactate Dehydrogenase Total Creatine Kinase CK-MB (CK-2) Rel Index Troponin T C-Reactive Protein Total Protein Albumin Prealbumin LDL Cholesterol Direct Arterial Blood Glucose Arterial Blood Ionized Calcium Urine WBC (Auto) Allied health notes reviewed: RT
[2020-04-19] MEDS: SENNOSIDES 8.6 MG TAB PO SCH (21:54)
[2020-04-19] MEDS: ENOXAPARIN 40 MG/0.4 ML INJ SUB-Q SCH (21:56)
[2020-04-19] MEDS: ZOLPIDEM 5 MG TAB PO PRN (21:58)
[2020-04-20] MEDS: MORPHINE 2 MG/1 ML INJ IV PRN ×4 (03:16→21:24)
[2020-04-20 07:14] LABS: Basophils # (Auto) 0.1 K/mm3 (0.0-0.1); Basophils % (Auto) 0.6 % (0.0-1.8); Eosinophils # (Auto) 0.1 K/mm3 (0.0-0.4); Eosinophils % (Auto) 1.2 % (0.0-4.3); Hematocrit 31.5 % (35.5-45.6); Hemoglobin 10.2 gm/dl (11.8-15.2); Lymphocytes # (Auto) 1.1 K/mm3 (1.2-5.4); Mean Corpuscular HGB Conc 32 % (32-34); Mean Corpuscular Volume 82 fl (84-94); Monocytes # (Auto) 1.1 K/mm3 (0.0-0.8); Monocytes % (Auto) 9.8 % (0.0-7.3); Platelet Count 546 K/mm3 (140-440); Red Blood Count 3.82 M/mm3 (3.65-5.03); Red Cell Distribution Width 17.1 % (13.2-15.2)
[2020-04-20 09:18] LABS: Blood Urea Nitrogen 15 mg/dL (9-20); Calcium 8.9 mg/dL (8.4-10.2); Hemolysis Index 1
[2020-04-20] MEDS: MAGIC MOUTHWASH 30ML PO SCH ×3 (09:29→21:21)
[2020-04-20] MEDS: BACLOFEN 10 MG TAB PO SCH ×2 (09:30→21:22)
[2020-04-20] MEDS: DOCUSATE SODIUM 100 MG/10 ML ORAL LIQD FEEDTUBE SCH ×2 (09:30→21:22)
[2020-04-20] MEDS: PREGABALIN 75 MG CAP PO SCH ×2 (09:30→21:23)
[2020-04-20] MEDS: LANSOPRAZOLE 30 MG SOLUTAB FEEDTUBE SCH (09:30)
[2020-04-20] MEDS: METOPROLOL TARTRATE 25 MG TAB PO SCH ×2 (09:31→21:22)
[2020-04-20] MEDS: GLYCOPYRROLATE 1 MG TAB PO SCH ×3 (09:31→19:56)
[2020-04-20] MEDS: TAMSULOSIN 0.4 MG CAP PO SCH (09:31)
[2020-04-20 09:32] LABS: BUN/Creatinine Ratio 75
[2020-04-20] MEDS: SCOPOLAMINE TRANSDERMAL PATCH 72 HR TD SCH (09:32)
[2020-04-20] MEDS: LIDOCAINE 5% 1 EACH PATCH TD SCH (09:32)
[2020-04-20] MEDS: SODIUM HYPOCHLORITE, DAKIN'S 1/2 STRENGTH (0.25%) 473 ML TOPICAL SOLN TP SCH ×2 (09:33→21:23)
--- NOTE | 2020-04-20 09:41 | Progress Note ---
Assessment and Plan Assessment and plan: --Acute hypoxic hypercapnic respiratory failure; S/p tracheostomy on ventilatory support etiology secondary to sepsis, ALS, multifocal pneumonia (Covid negative). Pulmonary following --ALS --Oral thrush Nystatin/Magic mouthwash swish and spit --Constipation; Patient already received Dulcolax suppository and Colace Received milk of magnesia, with relief --History of ALS - Stable --Elevated D-dimers; imaging studies negative for PE and DVT --Bilateral pneumonia; probably community-acquired Completed the treatment, continue supportive care --Sepsis secondary to pneumonia; completed the treatment resolved --Elevated troponin non-ST elevation TN type II Continue current management --Febrile illness; resolved ,secondary to pneumonia Complete antibiotics , resolved --DVT prophylaxis; Lovenox. 02/25/2020. CTA of the chest reveals no PE but does illustrate the bilateral pneumonia. Doppler ultrasound also negative for DVT. Blood cultures are pending. Await COVID-19 testing. Patient currently requiring BiPAP IPAP 24/EPAP 6 with FiO2 of 25%. Continue O2 and BiPAP as clinically indicated. ID and pulmonary consulted. 02/26/2020. Blood cultures are negative x48 hours and Covid testing negative as well. Continue antibiotics per ID recommendations for community-acquired bilate ral pneumonia. Cardiology consultation for elevated troponin. Check echocardiogram. 02/27/2020. Events of yesterday noted with asystole following V. fib arrest. Patient currently on AC mode rate 20, tidal volume 400, FiO2 50% and a PEEP of 6. Follow-up echocardiogram for elevated troponin. Cardiology suspects NSTEMI Type 2 in the setting of acute resp failure. Chest CTA and BLE Dopplers neg. we will discontinue Decadron given the Covid PCR is negative. 02/28/2020. I spoke with the sister Felisa Eli who is the power of patient placement coordinator regarding advanced directives and she instructed me that she would like to continue with aggressive care at this time. I informed her of the guarded prognosis and high mortality/morbidity and she voiced understanding. Patient currently with AC mode ventilation rate 18, tidal volume 400, FiO2 40% and a PEEP of 6. Continue antibiotics for pneumonia. ID previously consulted. Also consult neurology with regards to ALS. 02/29/2020; patient is intubated and on CPAP patient is alert and oriented. Patient has ALS. Dr. Álvarez spoke with his sister and she wants aggressive care. Continue antibiotics for pneumonia. Neurology consulted for ALS. Progno sis poor 03/01/2020; patient is intubated and on CPAP, patient is alert and oriented. I spoke with his 2 sisters about the management plan. 03/02/2020; patient is intubated and on CPAP. Patient was alert and oriented. I spoke with Dr. mohr and he thinks patient may need mechanical ventilat ion, likely his disease progressed. Dr. Flowers did debridement this morning. 03/03/2020; patient is intubated and on CPAP, patient was on trilogy and BiPAP at home. Patient has ALS. on spontaneous breathing trial. Patient is alert and oriented but quadriplegic. Patient has severe bilateral pneumonia and is on cefepime and Vanco, ID is following. Patient has sacral decubitus ulcer and debridement was done by Dr. Flowers and there is no osteomyelitis. 03/05. Patient still on broad-spectrum antibiotics. Status post sacral decubitus ulcer debridements-no osteomyelitis. Patient is on AC 25/400/30% PEEP 5. No blood gas results today. 03/06. Plan for tracheostomy by surgery. Still remains intubated. Labs reviewed-sodium 150. Started on free water 200 every 8hr. trend sodium. 03/07: s/p trach placement today, patient placed back on mechanical ventilation with trach. Plan to resume tube feeding with NG tube. Continue to monitor vitals, monitor BMP. 03/08: Patient noted to have distended abdomen with low urinary output. Obtain bladder scan rule out urine retention, UA and urine culture, continue to follow clinically. 03/09: Patient noted to have low blood pressure with SBP as low as 70s. Ordered for 500 mils normal saline bolus. CT abdomen showed bladder outlet obstruction, urology consulted. 03/10: placed on drake by urology o/n, improved urine outpt. cont to monitor BMP. resuded TF - cont free water with TF. wean off from vent as tolerated. 03/11: Vitals stable. cont TF, wean off from vent as tolerated. start on 1/2 NS for hypernatremia - follow BMP 03/12: wean off vent as tolerated, plan for speech eval, cont Tf for now, cont iv fluid 03/13: unable to wean off from vent, unable to do speech therapy eval. will need PEG tube, cont supportive care for now, cont NG tube feeding 03/14: consulted GI for PEg placemnet, cont supportive care. remains on vent at night 03/15: Discussed with GI, plan for PEG tube placement possibly tomorrow. Continue supportive care and wean off from vent as tolerated. Hold Lovenox dose tonight. 03/16: family didnot consent for PEG placement yesterday. I spoke with the daughter today and she is now agreeable for PEG tube. I explained the necessity of the procedure with RN to the patient also and he nodded started on tube feeding, for the procedure. will cont supportive care. planned for PEG tube placement tomorrow. 03/17: s/p PEG placement today, patient tolerated well, cont supportive care 03/18: Started on tube feeding with new PEG tube, continue to wean off vent as tolerated 03/19: cont to monitor with supportive care, wean off vent as tolerated 03/20: Continue to wean off vent as tolerated -but failing weaning trial. Still requiring vent support at night. Currently on PEG tube for tube feed. 03/21. Pt with PSV trials with FiO@ 30%, PEEP 6, PS 10. Currently on PEG tube for tube feed. 03/22/2020. Continue PSV trials per pulmonary. Continue bronchodilators. Patient tolerating tube feedings. Continue Robinul for secretion control. 03/23/2020. Continue PSV trials per pulmonary. Continue bronchodilators. Continue Scopolamine and Robinul for secretion control. Trach care/airway management. Mobility protocols for pressure ulcer prophylaxis. LTAC evaluation per case management 03/24/2020. Continue PSV trials with current settings pressure support 10, PEEP 6 and FiO2 30%. Continue bronchodilators/nebulizer. Continue Scopolamine and Robinul for secretion control. Trach care/airway management. Mobility protocols for pressure ulcer prophylaxis. LTAC evaluation per case management 03/25/2020. Pulmonary to proceed with T-piece trials today. Continue bronchodi lators/nebulizer. Continue Scopolamine and Robinul for secretion control. Trach care/airway management. Mobility protocols for pressure ulcer prophylaxis. 03/26/2020. Patient currently with PSV 10/6 at FiO2 of 30%. Continue weaning and T-piece trials per protocol. Continue bronchodilators/nebulizer. Continue Scopolamine and Robinul for secretion control. Trach care/airway management. Mobility protocols for pressure ulcer prophylaxis. Continue tube feeding with aspiration precautions. 03/27/2020. Patient currently with PSV 01/31 at FiO2 of 30%. Continue weaning and T-piece trials per protocol. Continue bronchodilators/nebulizer. Continue Scopolamine and Robinul for secretion control. Trach care/airway management. Mobility protocols for pressure ulcer prophylaxis. Continue tube feeding with aspiration precautions. 03/28. Had temp 100.7F. He has been off antibiotics. Will send blood culture, ua, urine culture and chest xray. Had chest pain overnight and trop was elevated as well. Cardiology to evaluate 03/29. Has back pain due to position. He mentions his chest pain is positional. Has no other complaints. Still on mechanical ventilation 03/30. No chest pain today. Labs reviewed. Discussed chest pain with cardiology and team advised no further work up at this time. Can follow up with cardiology in the office after hospitalization 03/31. Lidocaine patch for lower back pain. 04/01. Discharge planning underway. CM notes reviewed. Discussed with daughter 04/02 - . CM trying to arrange discharge. Continue PSV trials. Discussed with patients significant other 04/04/2020; CM is working for discharge arrangement. Continue PSV trials. 04/05/2020; patient was seen and evaluated this morning and no change from baseline. Continue with PSV trials. Follow with spray gunner for discharge planning. 04/06/2020;patient was seen and evaluated this morning and no change from baseline. Continue with PSV trials. Follow with spray gunner for discharge planning. 04/07/2020; patient was seen and evaluated this morning and no change from baseline. Continue with PSV trials. Follow with spray gunner for discharge planning. 04/08/2020; patient is vent dependent. Discharge is per spray gunner. 04/09/2020 patient is vent dependent, possible LTAC placement 04/10/2020; tracheostomy on vent, vent dependent pending LTAC placement 04/11/2020; clinically no change, tracheostomy on ventilatory support, wean as tolerated, awaiting placement 04/12/2020; remains on ventilatory support, unable to wean, patient wants to see a speech therapist for sound box However we cannot try that as long as he is on ventilatory support, once he is weaned off vent We will consult speech therapist, plan of care reviewed with the patient and his nurse 04/14/2020; clinically no change, on ventilatory support, complains of constipation, milk of magnesia Closely monitor the patient and adjust the management as needed 04/15/2020; patient has some oral thrush on the tongue, will give Magic mouthwash/nystatin swish and spit Wean off vent as tolerated 04/16 patient is alert and oriented, unable to comprehend what he is trying to tell but appears to complain of some pain, no acute events overnight, all interdisciplinary notes reviewed. Waiting for LTAC versus halfway f acility placement 04/17/2020. Continue supportive care with mechanical ventilation. Patient currently on AC mode rate 10, tidal volume 400 FiO2 30% with a PEEP of 6. Discharge planning per case management. 04/18/2020. Patient remains on mechanical ventilation AC mode rate 10, tidal volume 400, FiO2 30% and PEEP of 6. Continue spontaneous breathing trials as tolerated. Previously, patient was considered for discharge home with skilled staff providing care for 12 hours 7 days/week. Continue discussed with case management discharge planning. 04/19/20. Patient remains on mechanical ventilation AC mode rate 10, tidal volume 400, FiO2 30% and PEEP of 6. Continue spontaneous breathing trials as tolerated. 04/20/2020. Patient remains on mechanical ventilation AC mode rate 10, tidal volume 400, FiO2 30% and PEEP of 6. Continue spontaneous breathing trials as tolerated. The high probability of a clinically significant, sudden or life threatening deterioration of the [cardiac and respiratory] system(s) required my full and direct attention, intervention and personal management. The aggregate critical care time was [32] minutes. 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 Patient was on a trilogy machine for breathing 18/11. EMS arrived, patient had O2 sats in the 80s. EMS attempted to place patient on their CPAP machine, however patient did not tolerate. Patient was admitted to the ICU with diagnosis of acute hypoxic respiratory failure and placed on BiPAP. Patient initially tolerated but later deteriorated with respiratory status. CTA chest showed no PE but significant for bilateral pneumonia. Doppler ultrasound also negative for DVT. COVID-19 test ordered. Due to persistent hypoxia, patient was intubated on 02/26/2020 at 1500. Patient now on mechanical ventilation in the ICU s/p trach placement and now unable to wean off from the mechanical ventilation. Patient now status post PEG placement for tube feeding. Pending long-term placement -LTAC versus SNF Hospitalist Physical - Constitutional Vitals: Temp Pulse Resp BP Pulse Ox 98.7 F 114 H 10 L 111/74 99 04/20/20 08:00 04/20/20 09:31 04/20/20 07:00 04/20/20 09:31 04/20/20 07:50 General appearance: Present: no acute distress, cachectic - EENT Eyes: Present: PERRL, EOM intact ENT: hearing intact, clear oral mucosa, dentition normal - Neck Neck: Present: supple, normal ROM - Respiratory Respiratory effort: normal Respiratory: bilateral: CTA - Cardiovascular Rhythm: regular Heart Sounds: Present: S1 & S2. Absent: gallop, rub - Extremities Extremities: no ischemia, No edema, Full ROM - Abdominal General gastrointestinal: soft, non-tender, non-distended, normal bowel sounds - Integumentary Integumentary: Present: clear, warm, dry - Neurologic Neurologic: CNII-XII intact, moves all extremities HEART Score - HEART Score Troponin: Troponin T 0.090 ng/mL (0.00-0.029) H 03/28/20 17:17 Results - Labs CBC & Chem 7: 04/20/20 06:28 04/20/20 06:28 Labs: Laboratory Last Values WBC 10.8 K/mm3 (4.5-11.0) 04/20/20 06:28 RBC 3.82 M/mm3 (3.65-5.03) 04/20/20 06:28 Hgb 10.2 gm/dl (11.8-15.2) L 04/20/20 06:28 Hct 31.5 % (35.5-45.6) L 04/20/20 06:28 MCV 82 fl (84-94) L 04/20/20 06:28 MCH 27 pg (28-32) L 04/20/20 06:28 MCHC 32 % (32-34) 04/20/20 06:28 RDW 17.1 % (13.2-15.2) H 04/20/20 06:28 Plt Count 546 K/mm3 (140-440) H 04/20/20 06:28 Lymph % (Auto) 10.0 % (13.4-35.0) L 04/20/20 06:28 [place] % (Auto) 9.8 % (0.0-7.3) H 04/20/20 06:28 Eos % (Auto) 1.2 % (0.0-4.3) 04/20/20 06:28 Baso % (Auto) 0.6 % (0.0-1.8) 04/20/20 06:28 Lymph # (Auto) 1.1 K/mm3 (1.2-5.4) L 04/20/20 06:28 [place] # (Auto) 1.1 K/mm3 (0.0-0.8) H 04/20/20 06:28 Eos # (Auto) 0.1 K/mm3 (0.0-0.4) 04/20/20 06:28 Baso # (Auto) 0.1 K/mm3 (0.0-0.1) 04/20/20 06:28 Add Manual Diff Complete 04/12/20 09:07 Total Counted 100 04/12/20 09:07 Seg Neuts % (Manual) 86.0 % (40.0-70.0) H 04/12/20 09:07 Band Neutrophils % 0 % 03/28/20 10:28 Seg Neutrophils % 78.4 % (40.0-70.0) H 04/20/20 06:28 Lymphocytes % (Manual) 7.0 % (13.4-35.0) L 04/12/20 09:07 Reactive Lymphs % (Man) 0 % 03/28/20 10:28 Monocytes % (Manual) 3.0 % (0.0-7.3) 04/12/20 09:07 Eosinophils % (Manual) 1.0 % (0.0-4.3) 04/12/20 09:07 Basophils % (Manual) 1.0 % (0.0-1.8) 03/28/20 10:28 Metamyelocytes % 3.0 % 04/12/20 09:07 Myelocytes % 0 % 03/28/20 10:28 Promyelocytes % 0 % 03/28/20 10:28 Blast Cells % 0 % 03/28/20 10:28 Nucleated RBC % Not Reportable 04/12/20 09:07 Seg Neutrophils # Man 11.3 K/mm3 (1.8-7.7) H 04/12/20 09:07 Seg Neutrophils # 8.5 K/mm3 (1.8-7.7) H 04/20/20 06:28 Band Neutrophils # 0.0 K/mm3 04/12/20 09:07 Lymphocytes # (Manual) 0.9 K/mm3 (1.2-5.4) L 04/12/20 09:07 Abs React Lymphs (Man) 0.0 K/mm3 04/12/20 09:07 Monocytes # (Manual) 0.4 K/mm3 (0.0-0.8) 04/12/20 09:07 Eosinophils # (Manual) 0.1 K/mm3 (0.0-0.4) 04/12/20 09:07 Basophils # (Manual) 0.0 K/mm3 (0.0-0.1) 04/12/20 09:07 Metamyelocytes # 0.4 K/mm3 04/12/20 09:07 Myelocytes # 0.0 K/mm3 04/12/20 09:07 Promyelocytes # 0.0 K/mm3 04/12/20 09:07 Blast Cells # 0.0 K/mm3 04/12/20 09:07 WBC Morphology Not Reportable 04/12/20 09:07 Hypersegmented Neuts Not Reportable 04/12/20 09:07 Hyposegmented Neuts Not Reportable 04/12/20 09:07 Hypogranular Neuts Not Reportable 04/12/20 09:07 Smudge Cells Not Reportable 04/12/20 09:07 Toxic Granulation Not Reportable 04/12/20 09:07 Toxic Vacuolation Not Reportable 04/12/20 09:07 Dohle Bodies Not Reportable 04/12/20 09:07 Pelger-Huet Anomaly Not Reportable 04/12/20 09:07 Robert Rods Not Reportable 04/12/20 09:07 Platelet Estimate Consistent w auto 04/12/20 09:07 Clumped Platelets Not Reportable 04/12/20 09:07 Plt Clumps, EDTA Not Reportable 04/12/20 09:07 Large Platelets Few 04/12/20 09:07 Giant Platelets Not Reportable 04/12/20 09:07 Platelet Satelliting Not Reportable 04/12/20 09:07 Plt Morphology Comment Not Reportable 04/12/20 09:07 RBC Morphology Not Reportable 04/12/20 09:07 Dimorphic RBCs Not Reportable 04/12/20 09:07 Polychromasia Few 04/12/20 09:07 Hypochromasia Not Reportable 04/12/20 09:07 Poikilocytosis Not Reportable 04/12/20 09:07 Anisocytosis 1+ 04/12/20 09:07 Microcytosis Not Reportable 04/12/20 09:07 Macrocytosis Not Reportable 04/12/20 09:07 Spherocytes Not Reportable 04/12/20 09:07 Pappenheimer Bodies Not Reportable 04/12/20 09:07 Sickle Cells Not Reportable 04/12/20 09:07 Target Cells Not Reportable 04/12/20 09:07 Tear Drop Cells Not Reportable 04/12/20 09:07 Ovalocytes Not Reportable 04/12/20 09:07 Stomatocytes Few 03/17/20 04:40 Helmet Cells Not Reportable 04/12/20 09:07 Gregory-Wade Bodies Not Reportable 04/12/20 09:07 [place] Rings Not Reportable 04/12/20 09:07 [place] Cells Not Reportable 04/12/20 09:07 Bite Cells Not Reportable 04/12/20 09:07 Crenated Cell Not Reportable 04/12/20 09:07 Elliptocytes Not Reportable 04/12/20 09:07 Acanthocytes (Spur) Not Reportable 04/12/20 09:07 Rouleaux Not Reportable 04/12/20 09:07 Hemoglobin C Crystals Not Reportable 04/12/20 09:07 Schistocytes Not Reportable 04/12/20 09:07 Malaria parasites Not Reportable 04/12/20 09:07 [place] Bodies Not Reportable 04/12/20 09:07 Hem Pathologist Commnt No 04/12/20 09:07 PT 15.6 Sec. (12.2-14.9) H 02/24/20 09:19 INR 1.21 (0.87-1.13) H 02/24/20 09:19 APTT 25.4 Sec. (24.2-36.6) 02/24/20 09:19 D-Dimer 1311.96 ng/mlDDU (0-234) H 02/24/20 09:19 ABG pH 7.371 (7.320-7.450) 03/08/20 12:34 POC ABG pCO2 63.1 mmHg (32.0-48.0) H 03/08/20 12:34 ABG pCO2 60.1 mm Hg 03/06/20 04:34 POC ABG pO2 90.5 mmHg (83-108) 03/08/20 12:34 ABG pO2 88.6 mm Hg (80.0-90.0) 03/06/20 04:34 POC ABG HCO3 35.7 03/08/20 12:34 ABG HCO3 37.9 mmol/L (20.0-26.0) H 03/06/20 04:34 ABG O2 Saturation 97.0 % (95.0-99.0) 03/06/20 04:34 ABG O2 Content 14.3 (0.0-44) 03/06/20 04:34 POC ABG Base Excess 8.7 03/08/20 12:34 ABG Base Excess 11.4 mmol/L (-2.0-3.0) H 03/06/20 04:34 ABG Hemoglobin 10.9 (12.0-17.5) L 03/08/20 12:34 ABG Oxyhemoglobin 95.9 (94-98) 03/08/20 12:34 ABG Carboxyhemoglobin 1.7 % (0.0-5.0) 03/06/20 04:34 ABG Methemoglobin 0.3 (0.0-1.5) 03/08/20 12:34 ABG Sodium 143.6 mmol/L (136.0-145.0) 03/08/20 12:34 ABG Potassium 3.8 mmol/L (3.40-4.50) 03/08/20 12:34 ABG Chloride 102.0 mmol/L (98-107) 03/08/20 12:34 ABG Glucose 176 mg/dL (65-95) H 03/08/20 12:34 Oxyhemoglobin 94.7 % (95.0-99.0) L 03/06/20 04:34 Carboxyhemoglobin 0.7 (0.5-1.5) 03/08/20 12:34 FiO2 30 03/08/20 12:34 Sodium 139 mmol/L (137-145) 04/20/20 06:28 Potassium 4.5 mmol/L (3.6-5.0) 04/20/20 06:28 Chloride 97.0 mmol/L (98-107) L 04/20/20 06:28 Carbon Dioxide 38 mmol/L (22-30) H 04/20/20 06:28 Anion Gap 9 mmol/L 04/20/20 06:28 BUN 15 mg/dL (9-20) 04/20/20 06:28 Creatinine < 0.2 mg/dL (0.8-1.3) L 04/20/20 06:28 Estimated GFR > 60 ml/min 04/20/20 06:28 BUN/Creatinine Ratio 75 % 04/20/20 06:28 Glucose 138 mg/dL (75-100) H 04/20/20 06:28 POC Glucose 130 mg/dL (70-105) H 04/20/20 05:56 Lactic Acid 1.00 mmol/L (0.7-2.0) 02/24/20 12:07 Calcium 8.9 mg/dL (8.4-10.2) 04/20/20 06:28 Phosphorus 3.30 mg/dL (2.5-4.5) 03/29/20 14:35 Magnesium 1.90 mg/dL (1.7-2.3) 04/12/20 09:07 Ferritin 1715.0 ng/mL (30.0-300.0) H 02/24/20 10:01 Total Bilirubin 0.20 mg/dL (0.1-1.2) 04/12/20 09:07 AST 15 units/L (5-40) 04/12/20 09:07 ALT 15 units/L (7-56) 04/12/20 09:07 Alkaline Phosphatase 62 units/L (35-129) 04/12/20 09:07 Lactate Dehydrogenase 303 units/L (91-180) H 02/24/20 09:19 Total Creatine Kinase 47 units/L (55-170) L 03/28/20 17:17 CK-MB (CK-2) 2.2 ng/mL (0.0-4.0) 03/28/20 17:17 CK-MB (CK-2) Rel Index 4.6 (0-4) H 03/28/20 17:17 Troponin T 0.090 ng/mL (0.00-0.029) H 03/28/20 17:17 C-Reactive Protein 4.70 mg/dL (0.00-1.30) H 02/28/20 11:05 NT-Pro-B Natriuret Pep 48.30 pg/mL (0-900) 02/24/20 09:19 Total Protein 6.7 g/dL (6.3-8.2) 04/12/20 09:07 Albumin 2.7 g/dL (3.9-5) L 04/12/20 09:07 Albumin/Globulin Ratio 0.7 % 04/12/20 09:07 Prealbumin 0.090 g/L (0.200-0.400) L 02/28/20 12:54 Triglycerides 34 mg/dL (2-149) 03/22/20 18:00 Cholesterol 104 mg/dL (50-199) 03/22/20 18:00 LDL Cholesterol Direct 54 mg/dL (50-130) 03/22/20 18:00 HDL Cholesterol 40 mg/dL (40-59) 03/22/20 18:00 Cholesterol/HDL Ratio 2.60 % 03/22/20 18:00 Procalcitonin < 0.05 ng/mL (<0.15) 03/28/20 17:12 Arterial Blood Glucose 176 mg/dL (65-95) H 03/08/20 12:34 Arterial Blood Ionized Calcium 4.5 mg/dL (4.6-5.3) L 03/08/20 12:34 Urine Color Yellow (Yellow) 03/28/20 11:36 Urine Turbidity Hazy (Clear) 03/28/20 11:36 Urine pH 5.0 (5.0-7.0) 03/28/20 11:36 Ur Specific [place] 1.026 (1.003-1.030) 03/28/20 11:36 Urine Protein 100 mg/dl mg/dL (Negative) 03/28/20 11:36 Urine Glucose (UA) Neg mg/dL (Negative) 03/28/20 11:36 Urine Ketones Neg mg/dL (Negative) 03/28/20 11:36 Urine Blood Neg (Negative) 03/28/20 11:36 Urine Nitrite Neg (Negative) 03/28/20 11:36 Urine Bilirubin Neg (Negative) 03/28/20 11:36 Urine Urobilinogen 4.0 mg/dL (<2.0) 03/28/20 11:36 Ur Leukocyte Esterase Mod (Negative) 03/28/20 11:36 Urine WBC (Auto) 39.0 /HPF (0.0-6.0) H 03/28/20 11:36 Urine RBC (Auto) 16.0 /HPF (0.0-6.0) 03/28/20 11:36 U Epithel Cells (Auto) < 1.0 /HPF (0-13.0) 03/08/20 08:57 Urine Bacteria (Auto) 2+ /HPF (Negative) 03/28/20 11:36 Urine Mucus 3+ /HPF 03/28/20 11:36 Urine Yeast (Budding) 2+ /HPF 03/28/20 11:36 Vancomycin Trough 8.0 ug/mL (5.0-20.0) 03/04/20 08:59 Coronavirus (PCR) Negative (Negative) 02/25/20 09:03 - Diagnostic Impressions Diagnostic Impressions: Echocardiogram 02/26/20 10:41 Transthoracic Echocardiogram Indication: Elevated Trop BP: 116/75 HR: 85 Conclusions *Global left ventricular wall motion and contractility are within normal limits. *The estimated ejection fraction is 50-55%. *Abnormal left ventricular diastolic filling is observed, consistent with impaired relaxation. *There is no pericardial effusion. Findings Left Ventricle: The left ventricular chamber size is normal. Global left ventricular wall motion and contractility are within normal limits. Global left ventricular systolic function is normal. The estimated ejection fraction is 50-55%. Abnormal left ventricular diastolic filling is observed, consistent with impaired relaxation. Left Atrium: The left atrial chamber size is normal. Right Ventricle: The right ventricular cavity size is normal. Right Atrium: The right atrial cavity size is normal. Aortic Valve: Mild aortic leaflet calcification is visualized. There is no evidence of aortic regurgitation. Mitral Valve: The mitral valve leaflets are mildly thickened. There is no evidence of mitral regurgitation. Tricuspid Valve: The tricuspid valve leaflets are normal. There is trace tricuspid regurgitation. The right ventricular systolic pressure is calculated at 29 mmHg. Pulmonic Valve: The pulmonic valve is not well visualized. Pericardium: There is no pericardial effusion. Aorta: The aorta appears normal. Venous: The inferior vena cava is dilated. There is less than 50% respiratory change in the inferior vena cava dimension. Measurements Chambers 2D Name Value Normal Range IVSd (2D) 0.97 cm (0.6 - 1.1) LVPWd (2D) 0.93 cm (0.6 - 1.1) LVIDd (2D) 4 cm (3.7 - 5.6) LVIDs (2D) 2.73 cm (2 - 3.8) LV FS (2D) 31.67 % - EF Teichholz (2D) 60.23 % - Ao root diameter (2D) 3.51 cm (2 - 3.7) Volumes/Mass Name Value Normal Range LA ESV SP 4CH (A/L) 8.43 ml - LA ESV SP 2CH (A/L) 18.89 ml - LA ESV BP (A/L) 13.02 ml - LA ESV BP (A/L) index 8.8 ml/m2 - LA ESV SP 4CH (MOD) 7.22 ml - LA ESV SP 2CH (MOD) 18.15 ml - LA ESV BP (MOD) 11.47 ml - LA ESV BP (MOD) index 7.75 ml/m2 - Diastolic/Systolic Function Name Value Normal Range MV E-wave Vmax 0.51 m/sec - MV deceleration time 180.22 msec - MV A-wave Vmax 0.62 m/sec - MV E:A ratio 0.82 ratio - Aortic Valve Name Value Normal Range AV Vmax 1.17 m/sec - AV VTI 19.71 cm - AV peak gradient 5.44 mmHg - AV mean gradient 3.38 mmHg - LVOT diameter 2.26 cm - LVOT Vmax 0.89 m/sec - LVOT VTI 13.72 cm - LVOT peak gradient 3.17 mmHg - LVOT mean gradient 1.67 mmHg - SV LVOT 55.03 ml - SHARAD (continuity Vmax) 3.06 cm2 - SHARAD (continuity VTI) 2.79 cm2 - Tricuspid Valve Name Value Normal Range TR Vmax 2.3 m/sec - TR peak gradient 21 mmHg - RAP 8 mmHg - RVSP 29 mmHg - IVC diameter 2.59 cm (1.2 - 2.3) Pulmonic Valve/Qp:Qs Name Value Normal Range PV acceleration time 68.51 msec - Drake/IV: Voiding Method Indwelling Catheter IV Catheter Type [Right Wrist] INT / Saline Lock IV Catheter Type [Left Hand] Peripheral IV IV Catheter Type [Right Hand] Peripheral IV IV Catheter Type [Left Wrist] Peripheral IV IV Catheter Type [Right Peripheral IV Forearm] IV Catheter Type [Right Triple Lumen Cath Internal Jugular] IV Catheter Type [Left Forearm INT / Saline Lock ] IV Catheter Type [Right Triple Lumen Cath Femoral] IV Catheter Type [Right INT / Saline Lock Antecubital] Active Medications - Current Medications Current Medications: Generic Name Dose Route Start Last Admin Trade Name Freq PRN Reason Stop Dose Admin Acetaminophen 650 mg 02/24/20 15:13 04/19/20 20:27 Tylenol PO 650 mg Q4H PRN Administration Pain, Mild (1-3) Albuterol 2.5 mg 02/24/20 15:13 Proventil IH Q4HRT PRN Shortness Of Breath Alprazolam 0.5 mg 03/30/20 14:19 04/19/20 21:58 Xanax PO 0.5 mg Q8H PRN Administration Anxiety Lipase/Protease/Amylase 1 each 02/26/20 11:16 Pancreazmeredith Rubio 10,500 Unit FEEDTUBE PRN PRN For Clogged Feeding Tube Baclofen 10 mg 04/03/20 12:00 04/20/20 09:30 Lioresal PO 10 mg BID ALISA Administration Bisacodyl 10 mg 03/12/20 18:00 04/12/20 09:26 Bisacodyl 10 Mg Rect Supp MA 10 mg QDAY PRN Administration Bowel Movement Docusate Sodium 100 mg 04/03/20 12:00 04/20/20 09:30 Colace FEEDTUBE 100 mg BID ALISA Administration Enoxaparin Sodium 40 mg 03/20/20 22:00 04/19/20 21:56 Enoxaparin 40 Mg/0.4 Ml Inj SUB-Q 40 mg QDAY@2200 ALISA Administration Protocol Glycopyrrolate 2 mg 04/16/20 20:00 04/20/20 09:31 Glycopyrrolate 1 Mg Tab PO 2 mg TID ALISA Administration Lansoprazole 30 mg 02/28/20 10:00 04/20/20 09:30 Prevacid Solutab FEEDTUBE 30 mg QDAY ALISA Administration Lidocaine 1 each 03/31/20 10:00 04/20/20 09:32 Lidoderm 5% TD 1 each QDAY ALISA Administration Lidocaine HCl 15 ml 04/15/20 14:00 04/20/20 09:29 Magic Mouthwash 30ml PO 15 ml TID ALISA Administration Magnesium Hydroxide 30 ml 04/12/20 19:20 04/13/20 14:42 Magnesium Hydroxide (Mom) Oral Liqd Udc PO 30 ml Q4H PRN Administration Constipation Metoprolol Tartrate 12.5 mg 02/24/20 22:00 04/20/20 09:31 Metoprolol PO 12.5 mg BID ALISA Administration Morphine Sulfate 2 mg 02/29/20 16:42 04/20/20 09:32 Morphine IV 2 mg Q4H PRN Administration Pain, Moderate (4-6) Pregabalin 150 mg 04/03/20 12:00 04/20/20 09:30 Pregabalin PO 150 mg BID ALISA Administration Scopolamine 1 each 03/03/20 14:00 04/20/20 09:32 Transderm-Scop TD 1 each Q3D ALISA Administration Senna 17.2 mg 04/03/20 22:00 04/19/20 21:54 Senokot PO Not Given QHS ALISA Simple Syrup 15 ml 02/26/20 11:16 Simple Syrup FEEDTUBE PRN PRN Hypoglycemia Simple Syrup 30 ml 02/26/20 11:16 Simple Syrup FEEDTUBE PRN PRN Hypoglycemia Sodium Bicarbonate 325 mg 02/26/20 11:16 Sodium Bicarbonate FEEDTUBE PRN PRN For Clogged Feeding Tube Sodium Hypochlorite 1 applic 03/31/20 13:00 04/20/20 09:33 Dakin's Half Strength TP 0.25 package BID ALISA Administration Tamsulosin HCl 0.4 mg 03/09/20 18:00 04/20/20 09:31 Tamsulosin 0.4 Mg Cap PO 0.4 mg QDAY ALISA Administration Zolpidem Tartrate 10 mg 03/31/20 20:15 04/19/20 21:58 Ambien PO 10 mg QHS PRN Administration Sleep Nutrition/Malnutrition Assess - Dietary Evaluation Nutrition/Malnutrition Findings: Nutrition Notes Start: 02/26/20 10:40 Freq: Status: Active Protocol: Document 04/18/20 12:15 AB (Rec: 04/18/20 12:16 AB [id number]) Co-Sign 04/18/20 12:15 LP Nutrition Notes Initial or Follow up Brief Note Current Diagnosis Decubitus(Pressure Ulcer), Sepsis,Respiratory Failure Other Pertinent Diagnosis COVID-19 (-), ALS, pneumonia, Hip/buttock PU Current Diet Vital AF 1.2 at 75ml/hr (goal rate) Subjective/Other Information F/U for TF tolerance. Per RN, pt TF is running at goal and tolerating it. Nutrition Intervention Follow-Up By: 04/25/20 Additional Comments F/U for TF tolerance
[2020-04-20] MEDS: ALPRAZolam 0.5 MG TAB PO PRN ×2 (13:05→21:22)
[2020-04-20] MEDS: ACETAMINOPHEN 325 MG TAB PO PRN (16:24)
[2020-04-20] MEDS: ZOLPIDEM 5 MG TAB PO PRN (21:21)
[2020-04-20] MEDS: SENNOSIDES 8.6 MG TAB PO SCH (21:22)
[2020-04-20] MEDS: ENOXAPARIN 40 MG/0.4 ML INJ SUB-Q SCH (21:23)
--- NOTE | 2020-04-20 23:17 | Progress Note ---
Assessment and Plan Patient sleeping at this time.. Patient is in assist control mechanical ventilation, rate 10, Tidal volume 400, FIO2 30%, PEEP 6 and O2 saturation running 98%. Recommend Continue spontaneous breathing trials as tolerated.Patient afebrile and has leukocytosis. Chest xray done 04/15/20 reported mild basilar airspace opacities which likely represent atelectasis but could represent an evolving pneumonia. If patient running fever, recommend to place hin on antibiotics like zosyn. I spent critical care time of 35 minutes, review the chart, examining the patient,Review chest xray, labs, talking to the nursing staff and respiratory therapist and work out plan of tratment in this critically ill patient. - Patient Problems (1) Acute on chronic respiratory failure with hypoxia and hypercapnia Current Visit: Yes Status: Acute Plan to address problem: Patient is on assist control mechanical ventilation, Rate 10, Tidal volume 400, FIO2 30%, PEEP 6. Albuterol inhaler 2 puffs po qid. Continue S/C Lovenox. Continue prevacid. Recommend to continue spontaneous breathing trials. (2) Bleeding from wound Current Visit: Yes Status: Acute Plan to address problem: Management primary care , surgery and wound care. (3) Elevated d-dimer Current Visit: Yes Status: Acute Plan to address problem: Patients venous doppler studies of legs, CTA chest reported Negative for VTE. Patient is on S/C Lovenox 40 mg qd. (4) Elevated troponin Current Visit: Yes Status: Acute Plan to address problem: Management as per primary care and cardiology (5) NSTEMI (non-ST elevated myocardial infarction) Current Visit: Yes Status: Acute Plan to address problem: Management as per cardiology. (6) Pneumonia Current Visit: Yes Status: Acute Qualifiers: Laterality: bilateral Plan to address problem: Patient was treated with ceftriaxone, zosyn and zithromax. Patient afebrile to day. Has leukocytosis. Chest xray done 04/15/20 reported mild basilar airspace opacities which likely represent atelectasis but could represent an evolving pneumonia. If patient running fever, recommend to place him back on antibiotics like zosyn. Subjective Date of service: 04/20/20 Principal diagnosis: Ac on Ch Hypercapnic & hypoxemic Resp Failure; Severe Sepsis; Jamar PNA; ALS Interval history: Patient sleeping at this time.. Patient is in assist control mechanical ventilation, rate 10, Tidal volume 400, FIO2 30%, PEEP 6 and O2 saturation running 98%. Recommend Continue spontaneous breathing trials as tolerated.Patient afebrile and has leukocytosis. Chest xray done 04/15/20 reported mild basilar airspace opacities which likely represent atelectasis but could represent an evolving pneumonia. If patient running fever, recommend to place hin on antibiotics like zosyn. Objective Vital Signs - 12hr 04/20/20 04/20/20 04/20/20 11:55 12:00 13:00 Temperature 99.3 F Pulse Rate 99 H 99 H 105 H Respiratory 10 L 11 L Rate Blood Pressure 101/70 104/69 98/71 O2 Sat by Pulse 100 98 Oximetry O2 Sat by Pulse Oximetry [ Assessment] 04/20/20 04/20/20 04/20/20 14:00 15:00 16:00 Temperature 98.3 F Pulse Rate 110 H 116 H 104 H Respiratory 10 L 24 10 L Rate Blood Pressure 100/73 101/76 104/71 O2 Sat by Pulse 99 99 Oximetry O2 Sat by Pulse Oximetry [ Assessment] 04/20/20 04/20/20 04/20/20 16:15 17:00 18:00 Temperature Pulse Rate 116 H 99 H 110 H Respiratory 11 L 21 Rate Blood Pressure 101/76 109/73 109/73 O2 Sat by Pulse 99 99 Oximetry O2 Sat by Pulse 99 Oximetry [ Assessment] 04/20/20 04/20/20 04/20/20 20:00 21:16 21:22 Temperature 98.6 F Pulse Rate 112 H 112 H Respiratory Rate Blood Pressure 105/69 105/69 O2 Sat by Pulse 98 Oximetry O2 Sat by Pulse Oximetry [ Assessment] 04/20/20 04/20/20 21:24 21:37 Temperature Pulse Rate Respiratory 26 H Rate Blood Pressure O2 Sat by Pulse 98 Oximetry O2 Sat by Pulse Oximetry [ Assessment] Constitutional: no acute distress, asleep, other (thin middle aged male with normal respiratory effort at rest on MVS) Eyes: non-icteric ENT: oropharynx moist, other (S/P Tracheostomy) Neck: supple, no lymphadenopathy, no JVD Effort: mildly labored Ascultation: Bilateral: diminished breath sounds, wheezes, rhonchi Percussion: Bilateral: not dull Cardiovascular: regular rate and rhythm, other (S1,S2, no murmurs) Gastrointestinal: normoactive bowel sounds, soft, non-tender, non-distended, other (+ distended but non tender suprapubis) Integumentary: normal, decubitus ulcer (sacral / gluteal) Extremities: no cyanosis, no edema, pulses normal, other (atrophic looking limbs) Neurologic: pupils equal and round, other (motor strength in extremities 1-2/5, awake, alert, mouths words to make needs known) Psychiatric: depressed CBC and BMP: 04/20/20 06:28 04/20/20 06:28 ABG, PT/INR, D-dimer: ABG ABG pH 7.371 (7.320-7.450) 03/08/20 12:34 POC ABG pCO2 63.1 mmHg (32.0-48.0) H 03/08/20 12:34 ABG pCO2 60.1 mm Hg 03/06/20 04:34 POC ABG pO2 90.5 mmHg (83-108) 03/08/20 12:34 ABG pO2 88.6 mm Hg (80.0-90.0) 03/06/20 04:34 POC ABG HCO3 35.7 03/08/20 12:34 ABG O2 Saturation 97.0 % (95.0-99.0) 03/06/20 04:34 PT/INR, D-dimer PT 15.6 Sec. (12.2-14.9) H 02/24/20 09:19 INR 1.21 (0.87-1.13) H 02/24/20 09:19 D-Dimer 1311.96 ng/mlDDU (0-234) H 02/24/20 09:19 Abnormal lab findings: Abnormal Labs 02/24/20 02/24/20 02/24/20 09:19 09:19 09:19 WBC 20.2 H RBC 5.05 H Hgb Hct MCV MCH RDW 15.3 H Plt Count Lymph % (Auto) [place] % (Auto) Lymph # (Auto) [place] # (Auto) Seg Neutrophils % Seg Neuts % (Manual) 86.0 H Lymphocytes % (Manual) 1.0 L Monocytes % (Manual) Basophils % (Manual) Seg Neutrophils # Seg Neutrophils # Man 17.4 H Lymphocytes # (Manual) 0.2 L Monocytes # (Manual) Eosinophils # (Manual) Basophils # (Manual) PT 15.6 H INR 1.21 H D-Dimer 1311.96 H ABG pH POC ABG pCO2 POC ABG pO2 ABG pO2 ABG HCO3 ABG O2 Saturation ABG Base Excess ABG Hemoglobin ABG Oxyhemoglobin ABG Potassium ABG Glucose Oxyhemoglobin Carboxyhemoglobin Sodium 135 L Potassium 3.2 L Chloride 92.2 L Carbon Dioxide BUN 6 L Creatinine < 0.2 L Glucose 124 H POC Glucose Calcium Ferritin Total Bilirubin 2.30 H Alkaline Phosphatase 132 H Lactate Dehydrogenase Total Creatine Kinase CK-MB (CK-2) Rel Index Troponin T 0.080 H C-Reactive Protein Total Protein Albumin 3.6 L Prealbumin LDL Cholesterol Direct 41 L Arterial Blood Glucose Arterial Blood Ionized Calcium Urine WBC (Auto) 02/24/20 02/24/20 02/24/20 09:19 09:58 10:01 WBC RBC Hgb Hct MCV MCH RDW Plt Count Lymph % (Auto) [place] % (Auto) Lymph # (Auto) [place] # (Auto) Seg Neutrophils % Seg Neuts % (Manual) Lymphocytes % (Manual) Monocytes % (Manual) Basophils % (Manual) Seg Neutrophils # Seg Neutrophils # Man Lymphocytes # (Manual) Monocytes # (Manual) Eosinophils # (Manual) Basophils # (Manual) PT INR D-Dimer ABG pH 7.176 L* POC ABG pCO2 POC ABG pO2 ABG pO2 91.2 H ABG HCO3 ABG O2 Saturation ABG Base Excess -4.6 L ABG Hemoglobin ABG Oxyhemoglobin ABG Potassium ABG Glucose Oxyhemoglobin 92.6 L Carboxyhemoglobin Sodium Potassium Chloride Carbon Dioxide BUN Creatinine Glucose POC Glucose Calcium Ferritin 1715.0 H Total Bilirubin Alkaline Phosphatase Lactate Dehydrogenase 303 H Total Creatine Kinase CK-MB (CK-2) Rel Index Troponin T C-Reactive Protein 26.10 H Total Protein Albumin Prealbumin LDL Cholesterol Direct Arterial Blood Glucose Arterial Blood Ionized Calcium Urine WBC (Auto) 02/24/20 02/24/20 02/24/20 11:52 13:45 19:35 WBC RBC Hgb Hct MCV MCH RDW Plt Count Lymph % (Auto) [place] % (Auto) Lymph # (Auto) [place] # (Auto) Seg Neutrophils % Seg Neuts % (Manual) Lymphocytes % (Manual) Monocytes % (Manual) Basophils % (Manual) Seg Neutrophils # Seg Neutrophils # Man Lymphocytes # (Manual) Monocytes # (Manual) Eosinophils # (Manual) Basophils # (Manual) PT INR D-Dimer ABG pH 7.051 L* 7.300 L POC ABG pCO2 POC ABG pO2 ABG pO2 94.7 H 75.1 L ABG HCO3 18.0 L ABG O2 Saturation 93.5 L ABG Base Excess -6.8 L -7.8 L ABG Hemoglobin 13.2 L 11.9 L ABG Oxyhemoglobin ABG Potassium ABG Glucose Oxyhemoglobin 91.0 L 92.7 L Carboxyhemoglobin Sodium Potassium Chloride Carbon Dioxide BUN Creatinine Glucose POC Glucose Calcium Ferritin Total Bilirubin Alkaline Phosphatase Lactate Dehydrogenase Total Creatine Kinase CK-MB (CK-2) Rel Index Troponin T 0.034 H D C-Reactive Protein Total Protein Albumin Prealbumin LDL Cholesterol Direct Arterial Blood Glucose Arterial Blood Ionized Calcium Urine WBC (Auto) 02/25/20 02/25/20 02/25/20 04:00 04:00 12:26 WBC 22.9 H RBC Hgb Hct MCV 83 L MCH 27 L RDW Plt Count 468 H Lymph % (Auto) [place] % (Auto) Lymph # (Auto) [place] # (Auto) Seg Neutrophils % Seg Neuts % (Manual) 89.0 H Lymphocytes % (Manual) 7.0 L Monocytes % (Manual) Basophils % (Manual) Seg Neutrophils # Seg Neutrophils # Man 20.4 H Lymphocytes # (Manual) Monocytes # (Manual) Eosinophils # (Manual) Basophils # (Manual) PT INR D-Dimer ABG pH POC ABG pCO2 POC ABG pO2 ABG pO2 ABG HCO3 ABG O2 Saturation ABG Base Excess ABG Hemoglobin ABG Oxyhemoglobin ABG Potassium 2.6 L ABG Glucose 142 H Oxyhemoglobin Carboxyhemoglobin Sodium Potassium 3.2 L Chloride Carbon Dioxide 18 L BUN Creatinine 0.2 L Glucose 114 H POC Glucose Calcium Ferritin Total Bilirubin Alkaline Phosphatase Lactate Dehydrogenase Total Creatine Kinase CK-MB (CK-2) Rel Index Troponin T C-Reactive Protein Total Protein Albumin 3.5 L Prealbumin LDL Cholesterol Direct Arterial Blood Glucose 142 H Arterial Blood Ionized Calcium Urine WBC (Auto) 02/26/20 02/26/20 02/26/20 15:58 17:00 23:43 WBC RBC Hgb Hct MCV MCH RDW Plt Count Lymph % (Auto) [place] % (Auto) Lymph # (Auto) [place] # (Auto) Seg Neutrophils % Seg Neuts % (Manual) Lymphocytes % (Manual) Monocytes % (Manual) Basophils % (Manual) Seg Neutrophils # Seg Neutrophils # Man Lymphocytes # (Manual) Monocytes # (Manual) Eosinophils # (Manual) Basophils # (Manual) PT INR D-Dimer ABG pH 7.502 H POC ABG pCO2 POC ABG pO2 213.6 H ABG pO2 ABG HCO3 ABG O2 Saturation ABG Base Excess ABG Hemoglobin ABG Oxyhemoglobin 99.2 H ABG Potassium 2.9 L ABG Glucose 160 H Oxyhemoglobin Carboxyhemoglobin 0.4 L Sodium Potassium Chloride Carbon Dioxide BUN Creatinine Glucose POC Glucose 189 H 120 H Calcium Ferritin Total Bilirubin Alkaline Phosphatase Lactate Dehydrogenase Total Creatine Kinase CK-MB (CK-2) Rel Index Troponin T C-Reactive Protein Total Protein Albumin Prealbumin LDL Cholesterol Direct Arterial Blood Glucose 160 H Arterial Blood Ionized Calcium 4.5 L Urine WBC (Auto) 02/27/20 02/27/20 02/27/20 05:00 07:04 17:45 WBC RBC Hgb Hct MCV MCH RDW Plt Count Lymph % (Auto) [place] % (Auto) Lymph # (Auto) [place] # (Auto) Seg Neutrophils % Seg Neuts % (Manual) Lymphocytes % (Manual) Monocytes % (Manual) Basophils % (Manual) Seg Neutrophils # Seg Neutrophils # Man Lymphocytes # (Manual) Monocytes # (Manual) Eosinophils # (Manual) Basophils # (Manual) PT INR D-Dimer ABG pH 7.524 H POC ABG pCO2 POC ABG pO2 ABG pO2 ABG HCO3 ABG O2 Saturation ABG Base Excess ABG Hemoglobin ABG Oxyhemoglobin ABG Potassium 3.0 L ABG Glucose 143 H Oxyhemoglobin Carboxyhemoglobin Sodium Potassium Chloride Carbon Dioxide BUN Creatinine Glucose POC Glucose 154 H 175 H Calcium Ferritin Total Bilirubin Alkaline Phosphatase Lactate Dehydrogenase Total Creatine Kinase CK-MB (CK-2) Rel Index Troponin T C-Reactive Protein Total Protein Albumin Prealbumin LDL Cholesterol Direct Arterial Blood Glucose 143 H Arterial Blood Ionized Calcium Urine WBC (Auto) 02/27/20 02/28/20 02/28/20 Unknown 00:21 04:15 WBC 18.7 H RBC Hgb Hct MCV MCH RDW Plt Count Lymph % (Auto) 8.7 L [place] % (Auto) Lymph # (Auto) [place] # (Auto) 1.2 H Seg Neutrophils % 84.6 H Seg Neuts % (Manual) Lymphocytes % (Manual) Monocytes % (Manual) Basophils % (Manual) Seg Neutrophils # 15.9 H Seg Neutrophils # Man Lymphocytes # (Manual) Monocytes # (Manual) Eosinophils # (Manual) Basophils # (Manual) PT INR D-Dimer ABG pH POC ABG pCO2 POC ABG pO2 ABG pO2 ABG HCO3 ABG O2 Saturation ABG Base Excess ABG Hemoglobin ABG Oxyhemoglobin ABG Potassium ABG Glucose Oxyhemoglobin Carboxyhemoglobin Sodium Potassium 2.9 L* Chloride Carbon Dioxide 33 H D BUN Creatinine < 0.2 L Glucose 157 H POC Glucose 134 H Calcium Ferritin Total Bilirubin Alkaline Phosphatase Lactate Dehydrogenase Total Creatine Kinase CK-MB (CK-2) Rel Index Troponin T C-Reactive Protein Total Protein Albumin Prealbumin LDL Cholesterol Direct Arterial Blood Glucose Arterial Blood Ionized Calcium Urine WBC (Auto) 02/28/20 02/28/20 02/28/20 04:15 05:16 05:39 WBC RBC Hgb Hct MCV MCH RDW Plt Count Lymph % (Auto) [place] % (Auto) Lymph # (Auto) [place] # (Auto) Seg Neutrophils % Seg Neuts % (Manual) Lymphocytes % (Manual) Monocytes % (Manual) Basophils % (Manual) Seg Neutrophils # Seg Neutrophils # Man Lymphocytes # (Manual) Monocytes # (Manual) Eosinophils # (Manual) Basophils # (Manual) PT INR D-Dimer ABG pH POC ABG pCO2 POC ABG pO2 ABG pO2 142.9 H ABG HCO3 34.1 H ABG O2 Saturation ABG Base Excess 8.3 H ABG Hemoglobin ABG Oxyhemoglobin ABG Potassium ABG Glucose Oxyhemoglobin Carboxyhemoglobin Sodium 151 H Potassium Chloride Carbon Dioxide 32 H BUN Creatinine 0.2 L Glucose 167 H POC Glucose 138 H Calcium Ferritin Total Bilirubin Alkaline Phosphatase Lactate Dehydrogenase Total Creatine Kinase CK-MB (CK-2) Rel Index Troponin T C-Reactive Protein Total Protein Albumin Prealbumin LDL Cholesterol Direct Arterial Blood Glucose Arterial Blood Ionized Calcium Urine WBC (Auto) 02/28/20 02/28/20 02/28/20 11:05 11:33 12:54 WBC RBC Hgb Hct MCV MCH RDW Plt Count Lymph % (Auto) [place] % (Auto) Lymph # (Auto) [place] # (Auto) Seg Neutrophils % Seg Neuts % (Manual) Lymphocytes % (Manual) Monocytes % (Manual) Basophils % (Manual) Seg Neutrophils # Seg Neutrophils # Man Lymphocytes # (Manual) Monocytes # (Manual) Eosinophils # (Manual) Basophils # (Manual) PT INR D-Dimer ABG pH POC ABG pCO2 POC ABG pO2 ABG pO2 ABG HCO3 ABG O2 Saturation ABG Base Excess ABG Hemoglobin ABG Oxyhemoglobin ABG Potassium ABG Glucose Oxyhemoglobin Carboxyhemoglobin Sodium Potassium Chloride Carbon Dioxide BUN Creatinine Glucose POC Glucose 160 H Calcium Ferritin Total Bilirubin Alkaline Phosphatase Lactate Dehydrogenase Total Creatine Kinase CK-MB (CK-2) Rel Index Troponin T C-Reactive Protein 4.70 H Total Protein Albumin Prealbumin 0.090 L LDL Cholesterol Direct Arterial Blood Glucose Arterial Blood Ionized Calcium Urine WBC (Auto) 02/28/20 02/29/20 02/29/20 17:34 00:44 04:05 WBC 19.6 H RBC Hgb Hct MCV MCH 27 L RDW 15.4 H Plt Count Lymph % (Auto) [place] % (Auto) Lymph # (Auto) [place] # (Auto) Seg Neutrophils % Seg Neuts % (Manual) 86.0 H Lymphocytes % (Manual) 7.0 L Monocytes % (Manual) Basophils % (Manual) Seg Neutrophils # Seg Neutrophils # Man 16.9 H Lymphocytes # (Manual) Monocytes # (Manual) 1.2 H Eosinophils # (Manual) Basophils # (Manual) PT INR D-Dimer ABG pH POC ABG pCO2 POC ABG pO2 ABG pO2 ABG HCO3 ABG O2 Saturation ABG Base Excess ABG Hemoglobin ABG Oxyhemoglobin ABG Potassium ABG Glucose Oxyhemoglobin Carboxyhemoglobin Sodium Potassium Chloride Carbon Dioxide BUN Creatinine Glucose POC Glucose 136 H 156 H Calcium Ferritin Total Bilirubin Alkaline Phosphatase Lactate Dehydrogenase Total Creatine Kinase CK-MB (CK-2) Rel Index Troponin T C-Reactive Protein Total Protein Albumin Prealbumin LDL Cholesterol Direct Arterial Blood Glucose Arterial Blood Ionized Calcium Urine WBC (Auto) 02/29/20 02/29/20 02/29/20 04:05 05:14 05:33 WBC RBC Hgb Hct MCV MCH RDW Plt Count Lymph % (Auto) [place] % (Auto) Lymph # (Auto) [place] # (Auto) Seg Neutrophils % Seg Neuts % (Manual) Lymphocytes % (Manual) Monocytes % (Manual) Basophils % (Manual) Seg Neutrophils # Seg Neutrophils # Man Lymphocytes # (Manual) Monocytes # (Manual) Eosinophils # (Manual) Basophils # (Manual) PT INR D-Dimer ABG pH POC ABG pCO2 54.3 H POC ABG pO2 124.8 H ABG pO2 ABG HCO3 ABG O2 Saturation ABG Base Excess ABG Hemoglobin ABG Oxyhemoglobin ABG Potassium ABG Glucose 185 H Oxyhemoglobin Carboxyhemoglobin Sodium 148 H Potassium Chloride Carbon Dioxide 33 H BUN Creatinine < 0.2 L Glucose 173 H POC Glucose 152 H Calcium Ferritin Total Bilirubin Alkaline Phosphatase Lactate Dehydrogenase Total Creatine Kinase CK-MB (CK-2) Rel Index Troponin T C-Reactive Protein Total Protein Albumin Prealbumin LDL Cholesterol Direct Arterial Blood Glucose 185 H Arterial Blood Ionized Calcium Urine WBC (Auto) 03/01/20 03/01/20 03/01/20 00:00 03:45 04:33 WBC 23.1 H RBC Hgb Hct MCV MCH 27 L RDW 15.3 H Plt Count Lymph % (Auto) [place] % (Auto) Lymph # (Auto) [place] # (Auto) Seg Neutrophils % Seg Neuts % (Manual) 92.0 H Lymphocytes % (Manual) 6.0 L Monocytes % (Manual) Basophils % (Manual) Seg Neutrophils # Seg Neutrophils # Man 21.3 H Lymphocytes # (Manual) Monocytes # (Manual) Eosinophils # (Manual) 0.5 H Basophils # (Manual) PT INR D-Dimer ABG pH 7.492 H POC ABG pCO2 POC ABG pO2 ABG pO2 157.1 H ABG HCO3 32.3 H ABG O2 Saturation ABG Base Excess 8.1 H ABG Hemoglobin 13.2 L ABG Oxyhemoglobin ABG Potassium ABG Glucose Oxyhemoglobin Carboxyhemoglobin Sodium Potassium Chloride Carbon Dioxide BUN Creatinine Glucose POC Glucose 109 H Calcium Ferritin Total Bilirubin Alkaline Phosphatase Lactate Dehydrogenase Total Creatine Kinase CK-MB (CK-2) Rel Index Troponin T C-Reactive Protein Total Protein Albumin Prealbumin LDL Cholesterol Direct Arterial Blood Glucose Arterial Blood Ionized Calcium Urine WBC (Auto) 03/01/20 03/01/20 03/01/20 04:33 05:29 12:32 WBC RBC Hgb Hct MCV MCH RDW Plt Count Lymph % (Auto) [place] % (Auto) Lymph # (Auto) [place] # (Auto) Seg Neutrophils % Seg Neuts % (Manual) Lymphocytes % (Manual) Monocytes % (Manual) Basophils % (Manual) Seg Neutrophils # Seg Neutrophils # Man Lymphocytes # (Manual) Monocytes # (Manual) Eosinophils # (Manual) Basophils # (Manual) PT INR D-Dimer ABG pH POC ABG pCO2 POC ABG pO2 ABG pO2 ABG HCO3 ABG O2 Saturation ABG Base Excess ABG Hemoglobin ABG Oxyhemoglobin ABG Potassium ABG Glucose Oxyhemoglobin Carboxyhemoglobin Sodium 146 H Potassium Chloride Carbon Dioxide 32 H BUN Creatinine < 0.2 L Glucose 120 H POC Glucose 120 H 128 H Calcium Ferritin Total Bilirubin Alkaline Phosphatase Lactate Dehydrogenase Total Creatine Kinase CK-MB (CK-2) Rel Index Troponin T C-Reactive Protein Total Protein Albumin Prealbumin LDL Cholesterol Direct Arterial Blood Glucose Arterial Blood Ionized Calcium Urine WBC (Auto) 03/01/20 03/01/20 03/02/20 17:38 23:46 06:13 WBC RBC Hgb Hct MCV MCH RDW Plt Count Lymph % (Auto) [place] % (Auto) Lymph # (Auto) [place] # (Auto) Seg Neutrophils % Seg Neuts % (Manual) Lymphocytes % (Manual) Monocytes % (Manual) Basophils % (Manual) Seg Neutrophils # Seg Neutrophils # Man Lymphocytes # (Manual) Monocytes # (Manual) Eosinophils # (Manual) Basophils # (Manual) PT INR D-Dimer ABG pH POC ABG pCO2 POC ABG pO2 ABG pO2 ABG HCO3 ABG O2 Saturation ABG Base Excess ABG Hemoglobin ABG Oxyhemoglobin ABG Potassium ABG Glucose Oxyhemoglobin Carboxyhemoglobin Sodium Potassium Chloride Carbon Dioxide BUN Creatinine Glucose POC Glucose 114 H 121 H 120 H Calcium Ferritin Total Bilirubin Alkaline Phosphatase Lactate Dehydrogenase Total Creatine Kinase CK-MB (CK-2) Rel Index Troponin T C-Reactive Protein Total Protein Albumin Prealbumin LDL Cholesterol Direct Arterial Blood Glucose Arterial Blood Ionized Calcium Urine WBC (Auto) 03/02/20 03/02/20 03/03/20 09:47 09:47 10:21 WBC 23.6 H RBC Hgb Hct MCV MCH RDW 15.3 H Plt Count 494 H Lymph % (Auto) [place] % (Auto) Lymph # (Auto) [place] # (Auto) Seg Neutrophils % Seg Neuts % (Manual) 85.0 H Lymphocytes % (Manual) 6.0 L Monocytes % (Manual) Basophils % (Manual) Seg Neutrophils # Seg Neutrophils # Man 20.1 H Lymphocytes # (Manual) Monocytes # (Manual) 1.7 H Eosinophils # (Manual) Basophils # (Manual) PT INR D-Dimer ABG pH POC ABG pCO2 POC ABG pO2 ABG pO2 ABG HCO3 ABG O2 Saturation ABG Base Excess ABG Hemoglobin ABG Oxyhemoglobin ABG Potassium 3.3 L ABG Glucose 158 H Oxyhemoglobin Carboxyhemoglobin Sodium Potassium Chloride Carbon Dioxide BUN Creatinine < 0.2 L Glucose 177 H POC Glucose Calcium Ferritin Total Bilirubin Alkaline Phosphatase Lactate Dehydrogenase Total Creatine Kinase CK-MB (CK-2) Rel Index Troponin T C-Reactive Protein Total Protein Albumin Prealbumin LDL Cholesterol Direct Arterial Blood Glucose 158 H Arterial Blood Ionized Calcium Urine WBC (Auto) 03/03/20 03/04/20 03/04/20 21:30 00:00 12:23 WBC RBC Hgb Hct MCV MCH RDW Plt Count Lymph % (Auto) [place] % (Auto) Lymph # (Auto) [place] # (Auto) Seg Neutrophils % Seg Neuts % (Manual) Lymphocytes % (Manual) Monocytes % (Manual) Basophils % (Manual) Seg Neutrophils # Seg Neutrophils # Man Lymphocytes # (Manual) Monocytes # (Manual) Eosinophils # (Manual) Basophils # (Manual) PT INR D-Dimer ABG pH 7.328 L POC ABG pCO2 POC ABG pO2 ABG pO2 68.4 L ABG HCO3 35.0 H ABG O2 Saturation 93.9 L ABG Base Excess 6.8 H ABG Hemoglobin 12.7 L ABG Oxyhemoglobin ABG Potassium ABG Glucose Oxyhemoglobin 91.9 L Carboxyhemoglobin Sodium Potassium Chloride Carbon Dioxide BUN Creatinine Glucose POC Glucose 187 H 163 H Calcium Ferritin Total Bilirubin Alkaline Phosphatase Lactate Dehydrogenase Total Creatine Kinase CK-MB (CK-2) Rel Index Troponin T C-Reactive Protein Total Protein Albumin Prealbumin LDL Cholesterol Direct Arterial Blood Glucose Arterial Blood Ionized Calcium Urine WBC (Auto) 03/04/20 03/04/20 03/05/20 18:15 21:30 06:02 WBC RBC Hgb Hct MCV MCH RDW Plt Count Lymph % (Auto) [place] % (Auto) Lymph # (Auto) [place] # (Auto) Seg Neutrophils % Seg Neuts % (Manual) Lymphocytes % (Manual) Monocytes % (Manual) Basophils % (Manual) Seg Neutrophils # Seg Neutrophils # Man Lymphocytes # (Manual) Monocytes # (Manual) Eosinophils # (Manual) Basophils # (Manual) PT INR D-Dimer ABG pH 7.297 L POC ABG pCO2 POC ABG pO2 ABG pO2 ABG HCO3 41.0 H ABG O2 Saturation ABG Base Excess 11.0 H ABG Hemoglobin 13.1 L ABG Oxyhemoglobin ABG Potassium ABG Glucose Oxyhemoglobin 94.5 L Carboxyhemoglobin Sodium Potassium Chloride Carbon Dioxide BUN Creatinine Glucose POC Glucose 192 H 127 H Calcium Ferritin Total Bilirubin Alkaline Phosphatase Lactate Dehydrogenase Total Creatine Kinase CK-MB (CK-2) Rel Index Troponin T C-Reactive Protein Total Protein Albumin Prealbumin LDL Cholesterol Direct Arterial Blood Glucose Arterial Blood Ionized Calcium Urine WBC (Auto) 03/05/20 03/05/20 03/06/20 12:09 16:42 00:24 WBC RBC Hgb Hct MCV MCH RDW Plt Count Lymph % (Auto) [place] % (Auto) Lymph # (Auto) [place] # (Auto) Seg Neutrophils % Seg Neuts % (Manual) Lymphocytes % (Manual) Monocytes % (Manual) Basophils % (Manual) Seg Neutrophils # Seg Neutrophils # Man Lymphocytes # (Manual) Monocytes # (Manual) Eosinophils # (Manual) Basophils # (Manual) PT INR D-Dimer ABG pH POC ABG pCO2 POC ABG pO2 ABG pO2 ABG HCO3 ABG O2 Saturation ABG Base Excess ABG Hemoglobin ABG Oxyhemoglobin ABG Potassium ABG Glucose Oxyhemoglobin Carboxyhemoglobin Sodium Potassium Chloride Carbon Dioxide BUN Creatinine Glucose POC Glucose 147 H 114 H 134 H Calcium Ferritin Total Bilirubin Alkaline Phosphatase Lactate Dehydrogenase Total Creatine Kinase CK-MB (CK-2) Rel Index Troponin T C-Reactive Protein Total Protein Albumin Prealbumin LDL Cholesterol Direct Arterial Blood Glucose Arterial Blood Ionized Calcium Urine WBC (Auto) 03/06/20 03/06/20 03/06/20 04:34 05:53 06:08 WBC 25.4 H RBC Hgb 10.5 L Hct 32.7 L MCV MCH 27 L RDW 15.3 H Plt Count 634 H Lymph % (Auto) [place] % (Auto) Lymph # (Auto) [place] # (Auto) Seg Neutrophils % Seg Neuts % (Manual) 88.0 H Lymphocytes % (Manual) 2.0 L Monocytes % (Manual) 8.0 H Basophils % (Manual) Seg Neutrophils # Seg Neutrophils # Man 22.4 H Lymphocytes # (Manual) 0.5 L Monocytes # (Manual) 2.0 H Eosinophils # (Manual) Basophils # (Manual) PT INR D-Dimer ABG pH POC ABG pCO2 POC ABG pO2 ABG pO2 ABG HCO3 37.9 H ABG O2 Saturation ABG Base Excess 11.4 H ABG Hemoglobin 10.6 L ABG Oxyhemoglobin ABG Potassium ABG Glucose Oxyhemoglobin 94.7 L Carboxyhemoglobin Sodium Potassium Chloride Carbon Dioxide BUN Creatinine Glucose POC Glucose 135 H Calcium Ferritin Total Bilirubin Alkaline Phosphatase Lactate Dehydrogenase Total Creatine Kinase CK-MB (CK-2) Rel Index Troponin T C-Reactive Protein Total Protein Albumin Prealbumin LDL Cholesterol Direct Arterial Blood Glucose Arterial Blood Ionized Calcium Urine WBC (Auto) 03/06/20 03/06/20 03/06/20 06:08 12:19 19:10 WBC RBC Hgb Hct MCV MCH RDW Plt Count Lymph % (Auto) [place] % (Auto) Lymph # (Auto) [place] # (Auto) Seg Neutrophils % Seg Neuts % (Manual) Lymphocytes % (Manual) Monocytes % (Manual) Basophils % (Manual) Seg Neutrophils # Seg Neutrophils # Man Lymphocytes # (Manual) Monocytes # (Manual) Eosinophils # (Manual) Basophils # (Manual) PT INR D-Dimer ABG pH POC ABG pCO2 POC ABG pO2 ABG pO2 ABG HCO3 ABG O2 Saturation ABG Base Excess ABG Hemoglobin ABG Oxyhemoglobin ABG Potassium ABG Glucose Oxyhemoglobin Carboxyhemoglobin Sodium 150 H D Potassium Chloride Carbon Dioxide 39 H D BUN 23 H Creatinine < 0.2 L Glucose 144 H POC Glucose 169 H 152 H Calcium Ferritin Total Bilirubin Alkaline Phosphatase Lactate Dehydrogenase Total Creatine Kinase CK-MB (CK-2) Rel Index Troponin T C-Reactive Protein Total Protein Albumin 3.3 L Prealbumin LDL Cholesterol Direct Arterial Blood Glucose Arterial Blood Ionized Calcium Urine WBC (Auto) 03/06/20 03/07/20 03/07/20 23:58 04:25 04:25 WBC 22.1 H RBC Hgb 10.9 L Hct 32.9 L MCV MCH RDW 15.5 H Plt Count 739 H Lymph % (Auto) 7.8 L [place] % (Auto) Lymph # (Auto) [place] # (Auto) 1.3 H Seg Neutrophils % 85.5 H Seg Neuts % (Manual) Lymphocytes % (Manual) Monocytes % (Manual) Basophils % (Manual) Seg Neutrophils # 18.9 H Seg Neutrophils # Man Lymphocytes # (Manual) Monocytes # (Manual) Eosinophils # (Manual) Basophils # (Manual) PT INR D-Dimer ABG pH POC ABG pCO2 POC ABG pO2 ABG pO2 ABG HCO3 ABG O2 Saturation ABG Base Excess ABG Hemoglobin ABG Oxyhemoglobin ABG Potassium ABG Glucose Oxyhemoglobin Carboxyhemoglobin Sodium 146 H Potassium Chloride Carbon Dioxide 37 H BUN Creatinine < 0.2 L Glucose 118 H POC Glucose 111 H Calcium Ferritin Total Bilirubin Alkaline Phosphatase Lactate Dehydrogenase Total Creatine Kinase CK-MB (CK-2) Rel Index Troponin T C-Reactive Protein Total Protein Albumin 3.7 L Prealbumin LDL Cholesterol Direct Arterial Blood Glucose Arterial Blood Ionized Calcium Urine WBC (Auto) 03/07/20 03/07/20 03/07/20 05:20 17:45 23:32 WBC RBC Hgb Hct MCV MCH RDW Plt Count Lymph % (Auto) [place] % (Auto) Lymph # (Auto) [place] # (Auto) Seg Neutrophils % Seg Neuts % (Manual) Lymphocytes % (Manual) Monocytes % (Manual) Basophils % (Manual) Seg Neutrophils # Seg Neutrophils # Man Lymphocytes # (Manual) Monocytes # (Manual) Eosinophils # (Manual) Basophils # (Manual) PT INR D-Dimer ABG pH POC ABG pCO2 POC ABG pO2 ABG pO2 ABG HCO3 ABG O2 Saturation ABG Base Excess ABG Hemoglobin ABG Oxyhemoglobin ABG Potassium ABG Glucose Oxyhemoglobin Carboxyhemoglobin Sodium Potassium Chloride Carbon Dioxide BUN Creatinine Glucose POC Glucose 113 H 124 H 210 H Calcium Ferritin Total Bilirubin Alkaline Phosphatase Lactate Dehydrogenase Total Creatine Kinase CK-MB (CK-2) Rel Index Troponin T C-Reactive Protein Total Protein Albumin Prealbumin LDL Cholesterol Direct Arterial Blood Glucose Arterial Blood Ionized Calcium Urine WBC (Auto) 03/08/20 03/08/20 03/08/20 05:35 06:43 06:43 WBC 28.9 H RBC 3.53 L Hgb 9.7 L Hct 30.3 L MCV MCH RDW 15.6 H Plt Count 578 H Lymph % (Auto) [place] % (Auto) Lymph # (Auto) [place] # (Auto) Seg Neutrophils % Seg Neuts % (Manual) 93.0 H Lymphocytes % (Manual) 4.0 L Monocytes % (Manual) Basophils % (Manual) Seg Neutrophils # Seg Neutrophils # Man 26.9 H Lymphocytes # (Manual) Monocytes # (Manual) Eosinophils # (Manual) Basophils # (Manual) PT INR D-Dimer ABG pH POC ABG pCO2 POC ABG pO2 ABG pO2 ABG HCO3 ABG O2 Saturation ABG Base Excess ABG Hemoglobin ABG Oxyhemoglobin ABG Potassium ABG Glucose Oxyhemoglobin Carboxyhemoglobin Sodium 146 H Potassium Chloride Carbon Dioxide 35 H BUN 34 H Creatinine 0.3 L D Glucose 125 H POC Glucose 147 H Calcium Ferritin Total Bilirubin Alkaline Phosphatase Lactate Dehydrogenase Total Creatine Kinase CK-MB (CK-2) Rel Index Troponin T C-Reactive Protein Total Protein 5.9 L Albumin 3.2 L Prealbumin LDL Cholesterol Direct Arterial Blood Glucose Arterial Blood Ionized Calcium Urine WBC (Auto) 03/08/20 03/08/20 03/08/20 08:57 11:14 12:34 WBC RBC Hgb Hct MCV MCH RDW Plt Count Lymph % (Auto) [place] % (Auto) Lymph # (Auto) [place] # (Auto) Seg Neutrophils % Seg Neuts % (Manual) Lymphocytes % (Manual) Monocytes % (Manual) Basophils % (Manual) Seg Neutrophils # Seg Neutrophils # Man Lymphocytes # (Manual) Monocytes # (Manual) Eosinophils # (Manual) Basophils # (Manual) PT INR D-Dimer ABG pH POC ABG pCO2 63.1 H POC ABG pO2 ABG pO2 ABG HCO3 ABG O2 Saturation ABG Base Excess ABG Hemoglobin 10.9 L ABG Oxyhemoglobin ABG Potassium ABG Glucose 176 H Oxyhemoglobin Carboxyhemoglobin Sodium Potassium Chloride Carbon Dioxide BUN Creatinine Glucose POC Glucose 171 H Calcium Ferritin Total Bilirubin Alkaline Phosphatase Lactate Dehydrogenase Total Creatine Kinase CK-MB (CK-2) Rel Index Troponin T C-Reactive Protein Total Protein Albumin Prealbumin LDL Cholesterol Direct Arterial Blood Glucose 176 H Arterial Blood Ionized Calcium 4.5 L Urine WBC (Auto) 10.0 H 03/08/20 03/08/20 03/09/20 18:02 23:43 05:49 WBC RBC Hgb Hct MCV MCH RDW Plt Count Lymph % (Auto) [place] % (Auto) Lymph # (Auto) [place] # (Auto) Seg Neutrophils % Seg Neuts % (Manual) Lymphocytes % (Manual) Monocytes % (Manual) Basophils % (Manual) Seg Neutrophils # Seg Neutrophils # Man Lymphocytes # (Manual) Monocytes # (Manual) Eosinophils # (Manual) Basophils # (Manual) PT INR D-Dimer ABG pH POC ABG pCO2 POC ABG pO2 ABG pO2 ABG HCO3 ABG O2 Saturation ABG Base Excess ABG Hemoglobin ABG Oxyhemoglobin ABG Potassium ABG Glucose Oxyhemoglobin Carboxyhemoglobin Sodium Potassium Chloride Carbon Dioxide BUN Creatinine Glucose POC Glucose 157 H 134 H 163 H Calcium Ferritin Total Bilirubin Alkaline Phosphatase Lactate Dehydrogenase Total Creatine Kinase CK-MB (CK-2) Rel Index Troponin T C-Reactive Protein Total Protein Albumin Prealbumin LDL Cholesterol Direct Arterial Blood Glucose Arterial Blood Ionized Calcium Urine WBC (Auto) 03/09/20 03/09/20 03/09/20 08:35 08:35 12:11 WBC 23.4 H RBC 3.36 L Hgb 9.3 L Hct 28.8 L MCV MCH RDW 15.9 H Plt Count 521 H Lymph % (Auto) [place] % (Auto) Lymph # (Auto) [place] # (Auto) Seg Neutrophils % Seg Neuts % (Manual) 87.0 H Lymphocytes % (Manual) 4.0 L Monocytes % (Manual) 9.0 H Basophils % (Manual) Seg Neutrophils # Seg Neutrophils # Man 20.4 H Lymphocytes # (Manual) 0.9 L Monocytes # (Manual) 2.1 H Eosinophils # (Manual) Basophils # (Manual) PT INR D-Dimer ABG pH POC ABG pCO2 POC ABG pO2 ABG pO2 ABG HCO3 ABG O2 Saturation ABG Base Excess ABG Hemoglobin ABG Oxyhemoglobin ABG Potassium ABG Glucose Oxyhemoglobin Carboxyhemoglobin Sodium 147 H Potassium Chloride Carbon Dioxide 37 H BUN 63 H Creatinine Glucose 154 H POC Glucose 128 H Calcium Ferritin Total Bilirubin Alkaline Phosphatase Lactate Dehydrogenase Total Creatine Kinase CK-MB (CK-2) Rel Index Troponin T C-Reactive Protein Total Protein Albumin Prealbumin LDL Cholesterol Direct Arterial Blood Glucose Arterial Blood Ionized Calcium Urine WBC (Auto) 03/09/20 03/10/20 03/10/20 17:51 00:25 05:41 WBC RBC Hgb Hct MCV MCH RDW Plt Count Lymph % (Auto) [place] % (Auto) Lymph # (Auto) [place] # (Auto) Seg Neutrophils % Seg Neuts % (Manual) Lymphocytes % (Manual) Monocytes % (Manual) Basophils % (Manual) Seg Neutrophils # Seg Neutrophils # Man Lymphocytes # (Manual) Monocytes # (Manual) Eosinophils # (Manual) Basophils # (Manual) PT INR D-Dimer ABG pH POC ABG pCO2 POC ABG pO2 ABG pO2 ABG HCO3 ABG O2 Saturation ABG Base Excess ABG Hemoglobin ABG Oxyhemoglobin ABG Potassium ABG Glucose Oxyhemoglobin Carboxyhemoglobin Sodium Potassium Chloride Carbon Dioxide BUN Creatinine Glucose POC Glucose 127 H 128 H 153 H Calcium Ferritin Total Bilirubin Alkaline Phosphatase Lactate Dehydrogenase Total Creatine Kinase CK-MB (CK-2) Rel Index Troponin T C-Reactive Protein Total Protein Albumin Prealbumin LDL Cholesterol Direct Arterial Blood Glucose Arterial Blood Ionized Calcium Urine WBC (Auto) 03/10/20 03/10/20 03/10/20 06:14 06:14 12:02 WBC 18.3 H RBC 3.45 L Hgb 9.5 L Hct 29.5 L MCV MCH RDW 16.1 H Plt Count 494 H Lymph % (Auto) [place] % (Auto) Lymph # (Auto) [place] # (Auto) Seg Neutrophils % Seg Neuts % (Manual) 95.0 H Lymphocytes % (Manual) 1.0 L Monocytes % (Manual) Basophils % (Manual) Seg Neutrophils # Seg Neutrophils # Man 17.4 H Lymphocytes # (Manual) 0.2 L Monocytes # (Manual) Eosinophils # (Manual) Basophils # (Manual) PT INR D-Dimer ABG pH POC ABG pCO2 POC ABG pO2 ABG pO2 ABG HCO3 ABG O2 Saturation ABG Base Excess ABG Hemoglobin ABG Oxyhemoglobin ABG Potassium ABG Glucose Oxyhemoglobin Carboxyhemoglobin Sodium 149 H Potassium Chloride Carbon Dioxide 35 H BUN 34 H Creatinine 0.2 L D Glucose 177 H POC Glucose 151 H Calcium Ferritin Total Bilirubin Alkaline Phosphatase Lactate Dehydrogenase Total Creatine Kinase CK-MB (CK-2) Rel Index Troponin T C-Reactive Protein Total Protein Albumin Prealbumin LDL Cholesterol Direct Arterial Blood Glucose Arterial Blood Ionized Calcium Urine WBC (Auto) 03/10/20 03/10/20 03/11/20 17:41 23:53 05:02 WBC RBC Hgb Hct MCV MCH RDW Plt Count Lymph % (Auto) [place] % (Auto) Lymph # (Auto) [place] # (Auto) Seg Neutrophils % Seg Neuts % (Manual) Lymphocytes % (Manual) Monocytes % (Manual) Basophils % (Manual) Seg Neutrophils # Seg Neutrophils # Man Lymphocytes # (Manual) Monocytes # (Manual) Eosinophils # (Manual) Basophils # (Manual) PT INR D-Dimer ABG pH POC ABG pCO2 POC ABG pO2 ABG pO2 ABG HCO3 ABG O2 Saturation ABG Base Excess ABG Hemoglobin ABG Oxyhemoglobin ABG Potassium ABG Glucose Oxyhemoglobin Carboxyhemoglobin Sodium Potassium Chloride Carbon Dioxide BUN Creatinine Glucose POC Glucose 168 H 142 H 146 H Calcium Ferritin Total Bilirubin Alkaline Phosphatase Lactate Dehydrogenase Total Creatine Kinase CK-MB (CK-2) Rel Index Troponin T C-Reactive Protein Total Protein Albumin Prealbumin LDL Cholesterol Direct Arterial Blood Glucose Arterial Blood Ionized Calcium Urine WBC (Auto) 03/11/20 03/11/20 03/11/20 11:30 14:01 14:01 WBC 19.7 H RBC 3.04 L Hgb 8.7 L Hct 25.8 L MCV MCH RDW 15.6 H Plt Count Lymph % (Auto) [place] % (Auto) Lymph # (Auto) [place] # (Auto) Seg Neutrophils % Seg Neuts % (Manual) Lymphocytes % (Manual) Monocytes % (Manual) Basophils % (Manual) Seg Neutrophils # Seg Neutrophils # Man Lymphocytes # (Manual) Monocytes # (Manual) Eosinophils # (Manual) Basophils # (Manual) PT INR D-Dimer ABG pH POC ABG pCO2 POC ABG pO2 ABG pO2 ABG HCO3 ABG O2 Saturation ABG Base Excess ABG Hemoglobin ABG Oxyhemoglobin ABG Potassium ABG Glucose Oxyhemoglobin Carboxyhemoglobin Sodium 151 H Potassium Chloride Carbon Dioxide 37 H BUN Creatinine < 0.2 L Glucose 171 H POC Glucose 248 H Calcium Ferritin Total Bilirubin Alkaline Phosphatase Lactate Dehydrogenase Total Creatine Kinase CK-MB (CK-2) Rel Index Troponin T C-Reactive Protein Total Protein Albumin Prealbumin LDL Cholesterol Direct Arterial Blood Glucose Arterial Blood Ionized Calcium Urine WBC (Auto) 03/11/20 03/11/20 03/12/20 17:09 23:52 04:39 WBC 19.9 H RBC 3.16 L Hgb 8.9 L Hct 27.5 L MCV MCH RDW 15.7 H Plt Count Lymph % (Auto) 6.8 L [place] % (Auto) Lymph # (Auto) [place] # (Auto) 1.2 H Seg Neutrophils % 86.0 H Seg Neuts % (Manual) Lymphocytes % (Manual) Monocytes % (Manual) Basophils % (Manual) Seg Neutrophils # 17.1 H Seg Neutrophils # Man Lymphocytes # (Manual) Monocytes # (Manual) Eosinophils # (Manual) Basophils # (Manual) PT INR D-Dimer ABG pH POC ABG pCO2 POC ABG pO2 ABG pO2 ABG HCO3 ABG O2 Saturation ABG Base Excess ABG Hemoglobin ABG Oxyhemoglobin ABG Potassium ABG Glucose Oxyhemoglobin Carboxyhemoglobin Sodium Potassium Chloride Carbon Dioxide BUN Creatinine Glucose POC Glucose 124 H 131 H Calcium Ferritin Total Bilirubin Alkaline Phosphatase Lactate Dehydrogenase Total Creatine Kinase CK-MB (CK-2) Rel Index Troponin T C-Reactive Protein Total Protein Albumin Prealbumin LDL Cholesterol Direct Arterial Blood Glucose Arterial Blood Ionized Calcium Urine WBC (Auto) 03/12/20 03/12/20 03/12/20 04:39 05:28 11:34 WBC RBC Hgb Hct MCV MCH RDW Plt Count Lymph % (Auto) [place] % (Auto) Lymph # (Auto) [place] # (Auto) Seg Neutrophils % Seg Neuts % (Manual) Lymphocytes % (Manual) Monocytes % (Manual) Basophils % (Manual) Seg Neutrophils # Seg Neutrophils # Man Lymphocytes # (Manual) Monocytes # (Manual) Eosinophils # (Manual) Basophils # (Manual) PT INR D-Dimer ABG pH POC ABG pCO2 POC ABG pO2 ABG pO2 ABG HCO3 ABG O2 Saturation ABG Base Excess ABG Hemoglobin ABG Oxyhemoglobin ABG Potassium ABG Glucose Oxyhemoglobin Carboxyhemoglobin Sodium 147 H Potassium Chloride Carbon Dioxide 40 H BUN Creatinine < 0.2 L Glucose 175 H POC Glucose 167 H 144 H Calcium Ferritin Total Bilirubin Alkaline Phosphatase Lactate Dehydrogenase Total Creatine Kinase CK-MB (CK-2) Rel Index Troponin T C-Reactive Protein Total Protein Albumin Prealbumin LDL Cholesterol Direct Arterial Blood Glucose Arterial Blood Ionized Calcium Urine WBC (Auto) 03/12/20 03/12/20 03/13/20 17:32 23:57 05:57 WBC RBC Hgb Hct MCV MCH RDW Plt Count Lymph % (Auto) [place] % (Auto) Lymph # (Auto) [place] # (Auto) Seg Neutrophils % Seg Neuts % (Manual) Lymphocytes % (Manual) Monocytes % (Manual) Basophils % (Manual) Seg Neutrophils # Seg Neutrophils # Man Lymphocytes # (Manual) Monocytes # (Manual) Eosinophils # (Manual) Basophils # (Manual) PT INR D-Dimer ABG pH POC ABG pCO2 POC ABG pO2 ABG pO2 ABG HCO3 ABG O2 Saturation ABG Base Excess ABG Hemoglobin ABG Oxyhemoglobin ABG Potassium ABG Glucose Oxyhemoglobin Carboxyhemoglobin Sodium Potassium Chloride Carbon Dioxide BUN Creatinine Glucose POC Glucose 141 H 137 H 161 H Calcium Ferritin Total Bilirubin Alkaline Phosphatase Lactate Dehydrogenase Total Creatine Kinase CK-MB (CK-2) Rel Index Troponin T C-Reactive Protein Total Protein Albumin Prealbumin LDL Cholesterol Direct Arterial Blood Glucose Arterial Blood Ionized Calcium Urine WBC (Auto) 03/13/20 03/13/20 03/13/20 12:28 14:14 18:39 WBC RBC Hgb Hct MCV MCH RDW Plt Count Lymph % (Auto) [place] % (Auto) Lymph # (Auto) [place] # (Auto) Seg Neutrophils % Seg Neuts % (Manual) Lymphocytes % (Manual) Monocytes % (Manual) Basophils % (Manual) Seg Neutrophils # Seg Neutrophils # Man Lymphocytes # (Manual) Monocytes # (Manual) Eosinophils # (Manual) Basophils # (Manual) PT INR D-Dimer ABG pH POC ABG pCO2 POC ABG pO2 ABG pO2 ABG HCO3 ABG O2 Saturation ABG Base Excess ABG Hemoglobin ABG Oxyhemoglobin ABG Potassium ABG Glucose Oxyhemoglobin Carboxyhemoglobin Sodium Potassium Chloride Carbon Dioxide 39 H BUN Creatinine < 0.2 L Glucose 129 H POC Glucose 130 H 125 H Calcium Ferritin Total Bilirubin Alkaline Phosphatase Lactate Dehydrogenase Total Creatine Kinase CK-MB (CK-2) Rel Index Troponin T C-Reactive Protein Total Protein Albumin Prealbumin LDL Cholesterol Direct Arterial Blood Glucose Arterial Blood Ionized Calcium Urine WBC (Auto) 03/13/20 03/14/20 03/14/20 23:33 05:24 08:07 WBC 16.8 H RBC 2.81 L Hgb 7.9 L Hct 23.9 L MCV MCH RDW 15.9 H Plt Count Lymph % (Auto) [place] % (Auto) Lymph # (Auto) [place] # (Auto) Seg Neutrophils % Seg Neuts % (Manual) 84.0 H Lymphocytes % (Manual) 10.0 L Monocytes % (Manual) Basophils % (Manual) Seg Neutrophils # Seg Neutrophils # Man 14.1 H Lymphocytes # (Manual) Monocytes # (Manual) Eosinophils # (Manual) Basophils # (Manual) PT INR D-Dimer ABG pH POC ABG pCO2 POC ABG pO2 ABG pO2 ABG HCO3 ABG O2 Saturation ABG Base Excess ABG Hemoglobin ABG Oxyhemoglobin ABG Potassium ABG Glucose Oxyhemoglobin Carboxyhemoglobin Sodium Potassium Chloride Carbon Dioxide BUN Creatinine Glucose POC Glucose 146 H 125 H Calcium Ferritin Total Bilirubin Alkaline Phosphatase Lactate Dehydrogenase Total Creatine Kinase CK-MB (CK-2) Rel Index Troponin T C-Reactive Protein Total Protein Albumin Prealbumin LDL Cholesterol Direct Arterial Blood Glucose Arterial Blood Ionized Calcium Urine WBC (Auto) 03/14/20 03/14/20 03/14/20 08:07 12:21 18:26 WBC RBC Hgb Hct MCV MCH RDW Plt Count Lymph % (Auto) [place] % (Auto) Lymph # (Auto) [place] # (Auto) Seg Neutrophils % Seg Neuts % (Manual) Lymphocytes % (Manual) Monocytes % (Manual) Basophils % (Manual) Seg Neutrophils # Seg Neutrophils # Man Lymphocytes # (Manual) Monocytes # (Manual) Eosinophils # (Manual) Basophils # (Manual) PT INR D-Dimer ABG pH POC ABG pCO2 POC ABG pO2 ABG pO2 ABG HCO3 ABG O2 Saturation ABG Base Excess ABG Hemoglobin ABG Oxyhemoglobin ABG Potassium ABG Glucose Oxyhemoglobin Carboxyhemoglobin Sodium Potassium Chloride 97.0 L Carbon Dioxide 37 H BUN Creatinine < 0.2 L Glucose 129 H POC Glucose 109 H 142 H Calcium 8.3 L Ferritin Total Bilirubin Alkaline Phosphatase Lactate Dehydrogenase Total Creatine Kinase CK-MB (CK-2) Rel Index Troponin T C-Reactive Protein Total Protein Albumin Prealbumin LDL Cholesterol Direct Arterial Blood Glucose Arterial Blood Ionized Calcium Urine WBC (Auto) 03/14/20 03/15/20 03/15/20 23:57 05:46 08:06 WBC 19.7 H RBC 3.29 L Hgb 9.1 L Hct 28.0 L MCV MCH RDW 15.9 H Plt Count Lymph % (Auto) [place] % (Auto) Lymph # (Auto) [place] # (Auto) Seg Neutrophils % Seg Neuts % (Manual) Lymphocytes % (Manual) Monocytes % (Manual) Basophils % (Manual) Seg Neutrophils # Seg Neutrophils # Man Lymphocytes # (Manual) Monocytes # (Manual) Eosinophils # (Manual) Basophils # (Manual) PT INR D-Dimer ABG pH POC ABG pCO2 POC ABG pO2 ABG pO2 ABG HCO3 ABG O2 Saturation ABG Base Excess ABG Hemoglobin ABG Oxyhemoglobin ABG Potassium ABG Glucose Oxyhemoglobin Carboxyhemoglobin Sodium Potassium Chloride Carbon Dioxide BUN Creatinine Glucose POC Glucose 157 H 118 H Calcium Ferritin Total Bilirubin Alkaline Phosphatase Lactate Dehydrogenase Total Creatine Kinase CK-MB (CK-2) Rel Index Troponin T C-Reactive Protein Total Protein Albumin Prealbumin LDL Cholesterol Direct Arterial Blood Glucose Arterial Blood Ionized Calcium Urine WBC (Auto) 03/15/20 03/15/20 03/15/20 08:06 12:44 18:09 WBC RBC Hgb Hct MCV MCH RDW Plt Count Lymph % (Auto) [place] % (Auto) Lymph # (Auto) [place] # (Auto) Seg Neutrophils % Seg Neuts % (Manual) Lymphocytes % (Manual) Monocytes % (Manual) Basophils % (Manual) Seg Neutrophils # Seg Neutrophils # Man Lymphocytes # (Manual) Monocytes # (Manual) Eosinophils # (Manual) Basophils # (Manual) PT INR D-Dimer ABG pH POC ABG pCO2 POC ABG pO2 ABG pO2 ABG HCO3 ABG O2 Saturation ABG Base Excess ABG Hemoglobin ABG Oxyhemoglobin ABG Potassium ABG Glucose Oxyhemoglobin Carboxyhemoglobin Sodium 136 L Potassium Chloride 93.6 L Carbon Dioxide 37 H BUN Creatinine < 0.2 L Glucose 132 H POC Glucose 151 H 164 H Calcium Ferritin Total Bilirubin Alkaline Phosphatase Lactate Dehydrogenase Total Creatine Kinase CK-MB (CK-2) Rel Index Troponin T C-Reactive Protein Total Protein Albumin Prealbumin LDL Cholesterol Direct Arterial Blood Glucose Arterial Blood Ionized Calcium Urine WBC (Auto) 03/15/20 03/16/20 03/16/20 23:26 05:39 11:58 WBC RBC Hgb Hct MCV MCH RDW Plt Count Lymph % (Auto) [place] % (Auto) Lymph # (Auto) [place] # (Auto) Seg Neutrophils % Seg Neuts % (Manual) Lymphocytes % (Manual) Monocytes % (Manual) Basophils % (Manual) Seg Neutrophils # Seg Neutrophils # Man Lymphocytes # (Manual) Monocytes # (Manual) Eosinophils # (Manual) Basophils # (Manual) PT INR D-Dimer ABG pH POC ABG pCO2 POC ABG pO2 ABG pO2 ABG HCO3 ABG O2 Saturation ABG Base Excess ABG Hemoglobin ABG Oxyhemoglobin ABG Potassium ABG Glucose Oxyhemoglobin Carboxyhemoglobin Sodium Potassium Chloride Carbon Dioxide BUN Creatinine Glucose POC Glucose 136 H 116 H 109 H Calcium Ferritin Total Bilirubin Alkaline Phosphatase Lactate Dehydrogenase Total Creatine Kinase CK-MB (CK-2) Rel Index Troponin T C-Reactive Protein Total Protein Albumin Prealbumin LDL Cholesterol Direct Arterial Blood Glucose Arterial Blood Ionized Calcium Urine WBC (Auto) 03/16/20 03/17/20 03/17/20 23:56 04:40 04:40 WBC 18.0 H RBC 3.33 L Hgb 9.5 L Hct 28.8 L MCV MCH RDW 16.4 H Plt Count 499 H Lymph % (Auto) [place] % (Auto) Lymph # (Auto) [place] # (Auto) Seg Neutrophils % Seg Neuts % (Manual) 82.0 H Lymphocytes % (Manual) 8.0 L Monocytes % (Manual) Basophils % (Manual) Seg Neutrophils # Seg Neutrophils # Man 14.8 H Lymphocytes # (Manual) Monocytes # (Manual) 1.3 H Eosinophils # (Manual) Basophils # (Manual) 0.2 H PT INR D-Dimer ABG pH POC ABG pCO2 POC ABG pO2 ABG pO2 ABG HCO3 ABG O2 Saturation ABG Base Excess ABG Hemoglobin ABG Oxyhemoglobin ABG Potassium ABG Glucose Oxyhemoglobin Carboxyhemoglobin Sodium Potassium Chloride 97.7 L Carbon Dioxide 32 H BUN Creatinine < 0.2 L Glucose 114 H POC Glucose 131 H Calcium Ferritin Total Bilirubin Alkaline Phosphatase Lactate Dehydrogenase Total Creatine Kinase CK-MB (CK-2) Rel Index Troponin T C-Reactive Protein Total Protein Albumin Prealbumin LDL Cholesterol Direct Arterial Blood Glucose Arterial Blood Ionized Calcium Urine WBC (Auto) 03/18/20 03/18/20 03/18/20 00:21 05:21 11:55 WBC RBC Hgb Hct MCV MCH RDW Plt Count Lymph % (Auto) [place] % (Auto) Lymph # (Auto) [place] # (Auto) Seg Neutrophils % Seg Neuts % (Manual) Lymphocytes % (Manual) Monocytes % (Manual) Basophils % (Manual) Seg Neutrophils # Seg Neutrophils # Man Lymphocytes # (Manual) Monocytes # (Manual) Eosinophils # (Manual) Basophils # (Manual) PT INR D-Dimer ABG pH POC ABG pCO2 POC ABG pO2 ABG pO2 ABG HCO3 ABG O2 Saturation ABG Base Excess ABG Hemoglobin ABG Oxyhemoglobin ABG Potassium ABG Glucose Oxyhemoglobin Carboxyhemoglobin Sodium Potassium Chloride Carbon Dioxide BUN Creatinine Glucose POC Glucose 124 H 138 H 119 H Calcium Ferritin Total Bilirubin Alkaline Phosphatase Lactate Dehydrogenase Total Creatine Kinase CK-MB (CK-2) Rel Index Troponin T C-Reactive Protein Total Protein Albumin Prealbumin LDL Cholesterol Direct Arterial Blood Glucose Arterial Blood Ionized Calcium Urine WBC (Auto) 03/18/20 03/18/20 03/19/20 17:03 23:58 05:24 WBC RBC Hgb Hct MCV MCH RDW Plt Count Lymph % (Auto) [place] % (Auto) Lymph # (Auto) [place] # (Auto) Seg Neutrophils % Seg Neuts % (Manual) Lymphocytes % (Manual) Monocytes % (Manual) Basophils % (Manual) Seg Neutrophils # Seg Neutrophils # Man Lymphocytes # (Manual) Monocytes # (Manual) Eosinophils # (Manual) Basophils # (Manual) PT INR D-Dimer ABG pH POC ABG pCO2 POC ABG pO2 ABG pO2 ABG HCO3 ABG O2 Saturation ABG Base Excess ABG Hemoglobin ABG Oxyhemoglobin ABG Potassium ABG Glucose Oxyhemoglobin Carboxyhemoglobin Sodium Potassium Chloride Carbon Dioxide BUN Creatinine Glucose POC Glucose 128 H 128 H 115 H Calcium Ferritin Total Bilirubin Alkaline Phosphatase Lactate Dehydrogenase Total Creatine Kinase CK-MB (CK-2) Rel Index Troponin T C-Reactive Protein Total Protein Albumin Prealbumin LDL Cholesterol Direct Arterial Blood Glucose Arterial Blood Ionized Calcium Urine WBC (Auto) 03/19/20 03/19/20 03/19/20 08:05 08:05 11:56 WBC 16.8 H RBC 3.36 L Hgb 9.4 L Hct 28.8 L MCV MCH RDW 17.4 H Plt Count 567 H Lymph % (Auto) 7.8 L [place] % (Auto) Lymph # (Auto) [place] # (Auto) 1.2 H Seg Neutrophils % 83.5 H Seg Neuts % (Manual) Lymphocytes % (Manual) Monocytes % (Manual) Basophils % (Manual) Seg Neutrophils # 14.1 H Seg Neutrophils # Man Lymphocytes # (Manual) Monocytes # (Manual) Eosinophils # (Manual) Basophils # (Manual) PT INR D-Dimer ABG pH POC ABG pCO2 POC ABG pO2 ABG pO2 ABG HCO3 ABG O2 Saturation ABG Base Excess ABG Hemoglobin ABG Oxyhemoglobin ABG Potassium ABG Glucose Oxyhemoglobin Carboxyhemoglobin Sodium Potassium Chloride Carbon Dioxide 36 H BUN Creatinine < 0.2 L Glucose 135 H POC Glucose 128 H Calcium Ferritin Total Bilirubin Alkaline Phosphatase Lactate Dehydrogenase Total Creatine Kinase CK-MB (CK-2) Rel Index Troponin T C-Reactive Protein Total Protein Albumin Prealbumin LDL Cholesterol Direct Arterial Blood Glucose Arterial Blood Ionized Calcium Urine WBC (Auto) 03/19/20 03/20/20 03/20/20 23:59 05:12 16:52 WBC RBC Hgb Hct MCV MCH RDW Plt Count Lymph % (Auto) [place] % (Auto) Lymph # (Auto) [place] # (Auto) Seg Neutrophils % Seg Neuts % (Manual) Lymphocytes % (Manual) Monocytes % (Manual) Basophils % (Manual) Seg Neutrophils # Seg Neutrophils # Man Lymphocytes # (Manual) Monocytes # (Manual) Eosinophils # (Manual) Basophils # (Manual) PT INR D-Dimer ABG pH POC ABG pCO2 POC ABG pO2 ABG pO2 ABG HCO3 ABG O2 Saturation ABG Base Excess ABG Hemoglobin ABG Oxyhemoglobin ABG Potassium ABG Glucose Oxyhemoglobin Carboxyhemoglobin Sodium Potassium Chloride Carbon Dioxide BUN Creatinine Glucose POC Glucose 120 H 131 H 124 H Calcium Ferritin Total Bilirubin Alkaline Phosphatase Lactate Dehydrogenase Total Creatine Kinase CK-MB (CK-2) Rel Index Troponin T C-Reactive Protein Total Protein Albumin Prealbumin LDL Cholesterol Direct Arterial Blood Glucose Arterial Blood Ionized Calcium Urine WBC (Auto) 03/20/20 03/21/20 03/21/20 23:35 04:50 07:35 WBC 15.2 H RBC 3.39 L Hgb 9.4 L Hct 29.4 L MCV MCH RDW 17.6 H Plt Count 518 H Lymph % (Auto) [place] % (Auto) Lymph # (Auto) [place] # (Auto) Seg Neutrophils % Seg Neuts % (Manual) 83.0 H Lymphocytes % (Manual) 10.0 L Monocytes % (Manual) Basophils % (Manual) 2.0 H Seg Neutrophils # Seg Neutrophils # Man 12.6 H Lymphocytes # (Manual) Monocytes # (Manual) Eosinophils # (Manual) Basophils # (Manual) 0.3 H PT INR D-Dimer ABG pH POC ABG pCO2 POC ABG pO2 ABG pO2 ABG HCO3 ABG O2 Saturation ABG Base Excess ABG Hemoglobin ABG Oxyhemoglobin ABG Potassium ABG Glucose Oxyhemoglobin Carboxyhemoglobin Sodium Potassium Chloride Carbon Dioxide BUN Creatinine Glucose POC Glucose 125 H 127 H Calcium Ferritin Total Bilirubin Alkaline Phosphatase Lactate Dehydrogenase Total Creatine Kinase CK-MB (CK-2) Rel Index Troponin T C-Reactive Protein Total Protein Albumin Prealbumin LDL Cholesterol Direct Arterial Blood Glucose Arterial Blood Ionized Calcium Urine WBC (Auto) 03/21/20 03/21/20 03/21/20 07:35 11:45 17:22 WBC RBC Hgb Hct MCV MCH RDW Plt Count Lymph % (Auto) [place] % (Auto) Lymph # (Auto) [place] # (Auto) Seg Neutrophils % Seg Neuts % (Manual) Lymphocytes % (Manual) Monocytes % (Manual) Basophils % (Manual) Seg Neutrophils # Seg Neutrophils # Man Lymphocytes # (Manual) Monocytes # (Manual) Eosinophils # (Manual) Basophils # (Manual) PT INR D-Dimer ABG pH POC ABG pCO2 POC ABG pO2 ABG pO2 ABG HCO3 ABG O2 Saturation ABG Base Excess ABG Hemoglobin ABG Oxyhemoglobin ABG Potassium ABG Glucose Oxyhemoglobin Carboxyhemoglobin Sodium 136 L Potassium Chloride 97.7 L Carbon Dioxide 32 H BUN Creatinine < 0.2 L Glucose 103 H POC Glucose 126 H 120 H Calcium Ferritin Total Bilirubin Alkaline Phosphatase Lactate Dehydrogenase Total Creatine Kinase CK-MB (CK-2) Rel Index Troponin T C-Reactive Protein Total Protein Albumin Prealbumin LDL Cholesterol Direct Arterial Blood Glucose Arterial Blood Ionized Calcium Urine WBC (Auto) 03/22/20 03/22/20 03/22/20 05:09 06:34 06:34 WBC 17.5 H RBC 3.52 L Hgb 10.0 L Hct 30.7 L MCV MCH RDW 17.5 H Plt Count 499 H Lymph % (Auto) [place] % (Auto) Lymph # (Auto) [place] # (Auto) Seg Neutrophils % Seg Neuts % (Manual) 80.0 H Lymphocytes % (Manual) 10.0 L Monocytes % (Manual) Basophils % (Manual) Seg Neutrophils # Seg Neutrophils # Man 14.0 H Lymphocytes # (Manual) Monocytes # (Manual) Eosinophils # (Manual) Basophils # (Manual) PT INR D-Dimer ABG pH POC ABG pCO2 POC ABG pO2 ABG pO2 ABG HCO3 ABG O2 Saturation ABG Base Excess ABG Hemoglobin ABG Oxyhemoglobin ABG Potassium ABG Glucose Oxyhemoglobin Carboxyhemoglobin Sodium Potassium Chloride 96.6 L Carbon Dioxide 38 H BUN Creatinine < 0.2 L Glucose 139 H POC Glucose 125 H Calcium Ferritin Total Bilirubin Alkaline Phosphatase Lactate Dehydrogenase Total Creatine Kinase CK-MB (CK-2) Rel Index Troponin T C-Reactive Protein Total Protein Albumin Prealbumin LDL Cholesterol Direct Arterial Blood Glucose Arterial Blood Ionized Calcium Urine WBC (Auto) 03/22/20 03/22/20 03/22/20 11:45 18:00 23:32 WBC RBC Hgb Hct MCV MCH RDW Plt Count Lymph % (Auto) [place] % (Auto) Lymph # (Auto) [place] # (Auto) Seg Neutrophils % Seg Neuts % (Manual) Lymphocytes % (Manual) Monocytes % (Manual) Basophils % (Manual) Seg Neutrophils # Seg Neutrophils # Man Lymphocytes # (Manual) Monocytes # (Manual) Eosinophils # (Manual) Basophils # (Manual) PT INR D-Dimer ABG pH POC ABG pCO2 POC ABG pO2 ABG pO2 ABG HCO3 ABG O2 Saturation ABG Base Excess ABG Hemoglobin ABG Oxyhemoglobin ABG Potassium ABG Glucose Oxyhemoglobin Carboxyhemoglobin Sodium Potassium Chloride Carbon Dioxide BUN Creatinine Glucose POC Glucose 135 H 133 H Calcium Ferritin Total Bilirubin Alkaline Phosphatase Lactate Dehydrogenase Total Creatine Kinase CK-MB (CK-2) Rel Index Troponin T 0.113 H* C-Reactive Protein Total Protein Albumin Prealbumin LDL Cholesterol Direct Arterial Blood Glucose Arterial Blood Ionized Calcium Urine WBC (Auto) 03/23/20 03/23/20 03/23/20 01:47 06:21 07:57 WBC RBC Hgb Hct MCV MCH RDW Plt Count Lymph % (Auto) [place] % (Auto) Lymph # (Auto) [place] # (Auto) Seg Neutrophils % Seg Neuts % (Manual) Lymphocytes % (Manual) Monocytes % (Manual) Basophils % (Manual) Seg Neutrophils # Seg Neutrophils # Man Lymphocytes # (Manual) Monocytes # (Manual) Eosinophils # (Manual) Basophils # (Manual) PT INR D-Dimer ABG pH POC ABG pCO2 POC ABG pO2 ABG pO2 ABG HCO3 ABG O2 Saturation ABG Base Excess ABG Hemoglobin ABG Oxyhemoglobin ABG Potassium ABG Glucose Oxyhemoglobin Carboxyhemoglobin Sodium Potassium Chloride Carbon Dioxide BUN Creatinine Glucose POC Glucose 130 H Calcium Ferritin Total Bilirubin Alkaline Phosphatase Lactate Dehydrogenase Total Creatine Kinase CK-MB (CK-2) Rel Index Troponin T 0.143 H* D 0.105 H* D C-Reactive Protein Total Protein Albumin Prealbumin LDL Cholesterol Direct Arterial Blood Glucose Arterial Blood Ionized Calcium Urine WBC (Auto) 03/23/20 03/24/20 03/24/20 12:02 05:33 07:15 WBC 18.0 H RBC Hgb 11.0 L Hct 34.0 L MCV MCH RDW 17.4 H Plt Count 520 H Lymph % (Auto) [place] % (Auto) Lymph # (Auto) [place] # (Auto) Seg Neutrophils % Seg Neuts % (Manual) 88.0 H Lymphocytes % (Manual) 7.0 L Monocytes % (Manual) Basophils % (Manual) Seg Neutrophils # Seg Neutrophils # Man 15.8 H Lymphocytes # (Manual) Monocytes # (Manual) Eosinophils # (Manual) Basophils # (Manual) PT INR D-Dimer ABG pH POC ABG pCO2 POC ABG pO2 ABG pO2 ABG HCO3 ABG O2 Saturation ABG Base Excess ABG Hemoglobin ABG Oxyhemoglobin ABG Potassium ABG Glucose Oxyhemoglobin Carboxyhemoglobin Sodium Potassium Chloride Carbon Dioxide BUN Creatinine Glucose POC Glucose 137 H 112 H Calcium Ferritin Total Bilirubin Alkaline Phosphatase Lactate Dehydrogenase Total Creatine Kinase CK-MB (CK-2) Rel Index Troponin T C-Reactive Protein Total Protein Albumin Prealbumin LDL Cholesterol Direct Arterial Blood Glucose Arterial Blood Ionized Calcium Urine WBC (Auto) 03/24/20 03/24/2003/24/20 07:15 11:22 23:30 WBC RBC Hgb Hct MCV MCH RDW Plt Count Lymph % (Auto) [place] % (Auto) Lymph # (Auto) [place] # (Auto) Seg Neutrophils % Seg Neuts % (Manual) Lymphocytes % (Manual) Monocytes % (Manual) Basophils % (Manual) Seg Neutrophils # Seg Neutrophils # Man Lymphocytes # (Manual) Monocytes # (Manual) Eosinophils # (Manual) Basophils # (Manual) PT INR D-Dimer ABG pH POC ABG pCO2 POC ABG pO2 ABG pO2 ABG HCO3 ABG O2 Saturation ABG Base Excess ABG Hemoglobin ABG Oxyhemoglobin ABG Potassium ABG Glucose Oxyhemoglobin Carboxyhemoglobin Sodium Potassium Chloride 96.6 L Carbon Dioxide 38 H BUN Creatinine < 0.2 L Glucose 141 H POC Glucose 130 H 120 H Calcium Ferritin Total Bilirubin Alkaline Phosphatase Lactate Dehydrogenase Total Creatine Kinase CK-MB (CK-2) Rel Index Troponin T C-Reactive Protein Total Protein Albumin Prealbumin LDL Cholesterol Direct Arterial Blood Glucose Arterial Blood Ionized Calcium Urine WBC (Auto) 03/25/20 03/25/20 03/25/20 05:48 17:53 23:18 WBC RBC Hgb Hct MCV MCH RDW Plt Count Lymph % (Auto) [place] % (Auto) Lymph # (Auto) [place] # (Auto) Seg Neutrophils % Seg Neuts % (Manual) Lymphocytes % (Manual) Monocytes % (Manual) Basophils % (Manual) Seg Neutrophils # Seg Neutrophils # Man Lymphocytes # (Manual) Monocytes # (Manual) Eosinophils # (Manual) Basophils # (Manual) PT INR D-Dimer ABG pH POC ABG pCO2 POC ABG pO2 ABG pO2 ABG HCO3 ABG O2 Saturation ABG Base Excess ABG Hemoglobin ABG Oxyhemoglobin ABG Potassium ABG Glucose Oxyhemoglobin Carboxyhemoglobin Sodium Potassium Chloride Carbon Dioxide BUN Creatinine Glucose POC Glucose 124 H 109 H 131 H Calcium Ferritin Total Bilirubin Alkaline Phosphatase Lactate Dehydrogenase Total Creatine Kinase CK-MB (CK-2) Rel Index Troponin T C-Reactive Protein Total Protein Albumin Prealbumin LDL Cholesterol Direct Arterial Blood Glucose Arterial Blood Ionized Calcium Urine WBC (Auto) 03/26/20 03/26/20 03/26/20 05:21 08:49 08:49 WBC 19.7 H RBC Hgb 10.7 L Hct 33.5 L MCV MCH 27 L RDW 17.1 H Plt Count 480 H Lymph % (Auto) 5.7 L [place] % (Auto) Lymph # (Auto) 1.1 L [place] # (Auto) 1.2 H Seg Neutrophils % 87.7 H Seg Neuts % (Manual) Lymphocytes % (Manual) Monocytes % (Manual) Basophils % (Manual) Seg Neutrophils # 17.2 H Seg Neutrophils # Man Lymphocytes # (Manual) Monocytes # (Manual) Eosinophils # (Manual) Basophils # (Manual) PT INR D-Dimer ABG pH POC ABG pCO2 POC ABG pO2 ABG pO2 ABG HCO3 ABG O2 Saturation ABG Base Excess ABG Hemoglobin ABG Oxyhemoglobin ABG Potassium ABG Glucose Oxyhemoglobin Carboxyhemoglobin Sodium Potassium Chloride 97.2 L Carbon Dioxide 36 H BUN Creatinine < 0.2 L Glucose 127 H POC Glucose 116 H Calcium Ferritin Total Bilirubin Alkaline Phosphatase Lactate Dehydrogenase Total Creatine Kinase CK-MB (CK-2) Rel Index Troponin T C-Reactive Protein Total Protein Albumin Prealbumin LDL Cholesterol Direct Arterial Blood Glucose Arterial Blood Ionized Calcium Urine WBC (Auto) 03/26/20 03/26/20 03/26/20 11:38 18:44 23:06 WBC RBC Hgb Hct MCV MCH RDW Plt Count Lymph % (Auto) [place] % (Auto) Lymph # (Auto) [place] # (Auto) Seg Neutrophils % Seg Neuts % (Manual) Lymphocytes % (Manual) Monocytes % (Manual) Basophils % (Manual) Seg Neutrophils # Seg Neutrophils # Man Lymphocytes # (Manual) Monocytes # (Manual) Eosinophils # (Manual) Basophils # (Manual) PT INR D-Dimer ABG pH POC ABG pCO2 POC ABG pO2 ABG pO2 ABG HCO3 ABG O2 Saturation ABG Base Excess ABG Hemoglobin ABG Oxyhemoglobin ABG Potassium ABG Glucose Oxyhemoglobin Carboxyhemoglobin Sodium Potassium Chloride Carbon Dioxide BUN Creatinine Glucose POC Glucose 120 H 111 H 134 H Calcium Ferritin Total Bilirubin Alkaline Phosphatase Lactate Dehydrogenase Total Creatine Kinase CK-MB (CK-2) Rel Index Troponin T C-Reactive Protein Total Protein Albumin Prealbumin LDL Cholesterol Direct Arterial Blood Glucose Arterial Blood Ionized Calcium Urine WBC (Auto) 03/27/20 03/27/20 03/27/20 05:41 05:59 05:59 WBC 18.6 H RBC Hgb 10.1 L Hct 31.4 L MCV MCH RDW 17.2 H Plt Count Lymph % (Auto) 8.0 L [place] % (Auto) Lymph # (Auto) [place] # (Auto) 1.2 H Seg Neutrophils % 84.7 H Seg Neuts % (Manual) Lymphocytes % (Manual) Monocytes % (Manual) Basophils % (Manual) Seg Neutrophils # 15.8 H Seg Neutrophils # Man Lymphocytes # (Manual) Monocytes # (Manual) Eosinophils # (Manual) Basophils # (Manual) PT INR D-Dimer ABG pH POC ABG pCO2 POC ABG pO2 ABG pO2 ABG HCO3 ABG O2 Saturation ABG Base Excess ABG Hemoglobin ABG Oxyhemoglobin ABG Potassium ABG Glucose Oxyhemoglobin Carboxyhemoglobin Sodium Potassium Chloride Carbon Dioxide 34 H BUN Creatinine < 0.2 L Glucose 127 H POC Glucose 129 H Calcium Ferritin Total Bilirubin Alkaline Phosphatase Lactate Dehydrogenase Total Creatine Kinase CK-MB (CK-2) Rel Index Troponin T C-Reactive Protein Total Protein Albumin Prealbumin LDL Cholesterol Direct Arterial Blood Glucose Arterial Blood Ionized Calcium Urine WBC (Auto) 03/27/20 03/27/20 03/28/20 17:28 23:22 05:23 WBC RBC Hgb Hct MCV MCH RDW Plt Count Lymph % (Auto) [place] % (Auto) Lymph # (Auto) [place] # (Auto) Seg Neutrophils % Seg Neuts % (Manual) Lymphocytes % (Manual) Monocytes % (Manual) Basophils % (Manual) Seg Neutrophils # Seg Neutrophils # Man Lymphocytes # (Manual) Monocytes # (Manual) Eosinophils # (Manual) Basophils # (Manual) PT INR D-Dimer ABG pH POC ABG pCO2 POC ABG pO2 ABG pO2 ABG HCO3 ABG O2 Saturation ABG Base Excess ABG Hemoglobin ABG Oxyhemoglobin ABG Potassium ABG Glucose Oxyhemoglobin Carboxyhemoglobin Sodium Potassium Chloride Carbon Dioxide BUN Creatinine Glucose POC Glucose 108 H 119 H 129 H Calcium Ferritin Total Bilirubin Alkaline Phosphatase Lactate Dehydrogenase Total Creatine Kinase CK-MB (CK-2) Rel Index Troponin T C-Reactive Protein Total Protein Albumin Prealbumin LDL Cholesterol Direct Arterial Blood Glucose Arterial Blood Ionized Calcium Urine WBC (Auto) 03/28/20 03/28/20 03/28/20 10:28 10:28 11:36 WBC 23.6 H RBC 3.62 L Hgb 10.0 L Hct 30.8 L MCV MCH RDW 16.4 H Plt Count Lymph % (Auto) [place] % (Auto) Lymph # (Auto) [place] # (Auto) Seg Neutrophils % Seg Neuts % (Manual) 89.0 H Lymphocytes % (Manual) 5.0 L Monocytes % (Manual) Basophils % (Manual) Seg Neutrophils # Seg Neutrophils # Man 21.0 H Lymphocytes # (Manual) Monocytes # (Manual) 1.2 H Eosinophils # (Manual) Basophils # (Manual) 0.2 H PT INR D-Dimer ABG pH POC ABG pCO2 POC ABG pO2 ABG pO2 ABG HCO3 ABG O2 Saturation ABG Base Excess ABG Hemoglobin ABG Oxyhemoglobin ABG Potassium ABG Glucose Oxyhemoglobin Carboxyhemoglobin Sodium 134 L Potassium Chloride 94.2 L Carbon Dioxide 35 H BUN Creatinine < 0.2 L Glucose 134 H POC Glucose Calcium Ferritin Total Bilirubin Alkaline Phosphatase Lactate Dehydrogenase Total Creatine Kinase CK-MB (CK-2) Rel Index Troponin T C-Reactive Protein Total Protein Albumin Prealbumin LDL Cholesterol Direct Arterial Blood Glucose Arterial Blood Ionized Calcium Urine WBC (Auto) 39.0 H 03/28/20 03/28/20 03/28/20 11:51 17:08 17:17 WBC RBC Hgb Hct MCV MCH RDW Plt Count Lymph % (Auto) [place] % (Auto) Lymph # (Auto) [place] # (Auto) Seg Neutrophils % Seg Neuts % (Manual) Lymphocytes % (Manual) Monocytes % (Manual) Basophils % (Manual) Seg Neutrophils # Seg Neutrophils # Man Lymphocytes # (Manual) Monocytes # (Manual) Eosinophils # (Manual) Basophils # (Manual) PT INR D-Dimer ABG pH POC ABG pCO2 POC ABG pO2 ABG pO2 ABG HCO3 ABG O2 Saturation ABG Base Excess ABG Hemoglobin ABG Oxyhemoglobin ABG Potassium ABG Glucose Oxyhemoglobin Carboxyhemoglobin Sodium Potassium Chloride Carbon Dioxide BUN Creatinine Glucose POC Glucose 123 H 112 H Calcium Ferritin Total Bilirubin Alkaline Phosphatase Lactate Dehydrogenase Total Creatine Kinase 47 L CK-MB (CK-2) Rel Index 4.6 H Troponin T 0.090 H C-Reactive Protein Total Protein Albumin Prealbumin LDL Cholesterol Direct Arterial Blood Glucose Arterial Blood Ionized Calcium Urine WBC (Auto) 03/28/20 03/29/20 03/29/20 23:22 05:22 10:58 WBC RBC Hgb Hct MCV MCH RDW Plt Count Lymph % (Auto) [place] % (Auto) Lymph # (Auto) [place] # (Auto) Seg Neutrophils % Seg Neuts % (Manual) Lymphocytes % (Manual) Monocytes % (Manual) Basophils % (Manual) Seg Neutrophils # Seg Neutrophils # Man Lymphocytes # (Manual) Monocytes # (Manual) Eosinophils # (Manual) Basophils # (Manual) PT INR D-Dimer ABG pH POC ABG pCO2 POC ABG pO2 ABG pO2 ABG HCO3 ABG O2 Saturation ABG Base Excess ABG Hemoglobin ABG Oxyhemoglobin ABG Potassium ABG Glucose Oxyhemoglobin Carboxyhemoglobin Sodium Potassium Chloride Carbon Dioxide BUN Creatinine Glucose POC Glucose 122 H 116 H 133 H Calcium Ferritin Total Bilirubin Alkaline Phosphatase Lactate Dehydrogenase Total Creatine Kinase CK-MB (CK-2) Rel Index Troponin T C-Reactive Protein Total Protein Albumin Prealbumin LDL Cholesterol Direct Arterial Blood Glucose Arterial Blood Ionized Calcium Urine WBC (Auto) 03/29/20 03/29/20 03/30/20 17:18 23:14 04:57 WBC RBC Hgb Hct MCV MCH RDW Plt Count Lymph % (Auto) [place] % (Auto) Lymph # (Auto) [place] # (Auto) Seg Neutrophils % Seg Neuts % (Manual) Lymphocytes % (Manual) Monocytes % (Manual) Basophils % (Manual) Seg Neutrophils # Seg Neutrophils # Man Lymphocytes # (Manual) Monocytes # (Manual) Eosinophils # (Manual) Basophils # (Manual) PT INR D-Dimer ABG pH POC ABG pCO2 POC ABG pO2 ABG pO2 ABG HCO3 ABG O2 Saturation ABG Base Excess ABG Hemoglobin ABG Oxyhemoglobin ABG Potassium ABG Glucose Oxyhemoglobin Carboxyhemoglobin Sodium Potassium Chloride Carbon Dioxide BUN Creatinine Glucose POC Glucose 111 H 114 H 130 H Calcium Ferritin Total Bilirubin Alkaline Phosphatase Lactate Dehydrogenase Total Creatine Kinase CK-MB (CK-2) Rel Index Troponin T C-Reactive Protein Total Protein Albumin Prealbumin LDL Cholesterol Direct Arterial Blood Glucose Arterial Blood Ionized Calcium Urine WBC (Auto) 03/30/20 03/30/20 03/30/20 11:38 14:47 14:47 WBC 19.9 H RBC Hgb 10.9 L Hct 34.4 L MCV MCH 27 L RDW 16.5 H Plt Count 441 H Lymph % (Auto) 6.4 L [place] % (Auto) Lymph # (Auto) [place] # (Auto) 1.4 H Seg Neutrophils % 86.1 H Seg Neuts % (Manual) Lymphocytes % (Manual) Monocytes % (Manual) Basophils % (Manual) Seg Neutrophils # 17.1 H Seg Neutrophils # Man Lymphocytes # (Manual) Monocytes # (Manual) Eosinophils # (Manual) Basophils # (Manual) PT INR D-Dimer ABG pH POC ABG pCO2 POC ABG pO2 ABG pO2 ABG HCO3 ABG O2 Saturation ABG Base Excess ABG Hemoglobin ABG Oxyhemoglobin ABG Potassium ABG Glucose Oxyhemoglobin Carboxyhemoglobin Sodium 133 L Potassium Chloride 94.6 L Carbon Dioxide 33 H BUN Creatinine < 0.2 L Glucose 194 H POC Glucose 139 H Calcium Ferritin Total Bilirubin Alkaline Phosphatase Lactate Dehydrogenase Total Creatine Kinase CK-MB (CK-2) Rel Index Troponin T C-Reactive Protein Total Protein Albumin 2.8 L Prealbumin LDL Cholesterol Direct Arterial Blood Glucose Arterial Blood Ionized Calcium Urine WBC (Auto) 03/30/20 03/31/20 03/31/20 17:07 05:02 15:21 WBC RBC Hgb Hct MCV MCH RDW Plt Count Lymph % (Auto) [place] % (Auto) Lymph # (Auto) [place] # (Auto) Seg Neutrophils % Seg Neuts % (Manual) Lymphocytes % (Manual) Monocytes % (Manual) Basophils % (Manual) Seg Neutrophils # Seg Neutrophils # Man Lymphocytes # (Manual) Monocytes # (Manual) Eosinophils # (Manual) Basophils # (Manual) PT INR D-Dimer ABG pH POC ABG pCO2 POC ABG pO2 ABG pO2 ABG HCO3 ABG O2 Saturation ABG Base Excess ABG Hemoglobin ABG Oxyhemoglobin ABG Potassium ABG Glucose Oxyhemoglobin Carboxyhemoglobin Sodium Potassium Chloride Carbon Dioxide BUN Creatinine Glucose POC Glucose 163 H 108 H 110 H Calcium Ferritin Total Bilirubin Alkaline Phosphatase Lactate Dehydrogenase Total Creatine Kinase CK-MB (CK-2) Rel Index Troponin T C-Reactive Protein Total Protein Albumin Prealbumin LDL Cholesterol Direct Arterial Blood Glucose Arterial Blood Ionized Calcium Urine WBC (Auto) 03/31/20 03/31/20 04/01/20 17:58 23:19 05:09 WBC RBC Hgb Hct MCV MCH RDW Plt Count Lymph % (Auto) [place] % (Auto) Lymph # (Auto) [place] # (Auto) Seg Neutrophils % Seg Neuts % (Manual) Lymphocytes % (Manual) Monocytes % (Manual) Basophils % (Manual) Seg Neutrophils # Seg Neutrophils # Man Lymphocytes # (Manual) Monocytes # (Manual) Eosinophils # (Manual) Basophils # (Manual) PT INR D-Dimer ABG pH POC ABG pCO2 POC ABG pO2 ABG pO2 ABG HCO3 ABG O2 Saturation ABG Base Excess ABG Hemoglobin ABG Oxyhemoglobin ABG Potassium ABG Glucose Oxyhemoglobin Carboxyhemoglobin Sodium Potassium Chloride Carbon Dioxide BUN Creatinine Glucose POC Glucose 110 H 131 H 124 H Calcium Ferritin Total Bilirubin Alkaline Phosphatase Lactate Dehydrogenase Total Creatine Kinase CK-MB (CK-2) Rel Index Troponin T C-Reactive Protein Total Protein Albumin Prealbumin LDL Cholesterol Direct Arterial Blood Glucose Arterial Blood Ionized Calcium Urine WBC (Auto) 04/01/20 04/01/20 04/01/20 11:50 17:01 23:21 WBC RBC Hgb Hct MCV MCH RDW Plt Count Lymph % (Auto) [place] % (Auto) Lymph # (Auto) [place] # (Auto) Seg Neutrophils % Seg Neuts % (Manual) Lymphocytes % (Manual) Monocytes % (Manual) Basophils % (Manual) Seg Neutrophils # Seg Neutrophils # Man Lymphocytes # (Manual) Monocytes # (Manual) Eosinophils # (Manual) Basophils # (Manual) PT INR D-Dimer ABG pH POC ABG pCO2 POC ABG pO2 ABG pO2 ABG HCO3 ABG O2 Saturation ABG Base Excess ABG Hemoglobin ABG Oxyhemoglobin ABG Potassium ABG Glucose Oxyhemoglobin Carboxyhemoglobin Sodium Potassium Chloride Carbon Dioxide BUN Creatinine Glucose POC Glucose 136 H 115 H 124 H Calcium Ferritin Total Bilirubin Alkaline Phosphatase Lactate Dehydrogenase Total Creatine Kinase CK-MB (CK-2) Rel Index Troponin T C-Reactive Protein Total Protein Albumin Prealbumin LDL Cholesterol Direct Arterial Blood Glucose Arterial Blood Ionized Calcium Urine WBC (Auto) 04/02/20 04/02/20 04/02/20 05:27 11:58 17:58 WBC RBC Hgb Hct MCV MCH RDW Plt Count Lymph % (Auto) [place] % (Auto) Lymph # (Auto) [place] # (Auto) Seg Neutrophils % Seg Neuts % (Manual) Lymphocytes % (Manual) Monocytes % (Manual) Basophils % (Manual) Seg Neutrophils # Seg Neutrophils # Man Lymphocytes # (Manual) Monocytes # (Manual) Eosinophils # (Manual) Basophils # (Manual) PT INR D-Dimer ABG pH POC ABG pCO2 POC ABG pO2 ABG pO2 ABG HCO3 ABG O2 Saturation ABG Base Excess ABG Hemoglobin ABG Oxyhemoglobin ABG Potassium ABG Glucose Oxyhemoglobin Carboxyhemoglobin Sodium Potassium Chloride Carbon Dioxide BUN Creatinine Glucose POC Glucose 117 H 133 H 122 H Calcium Ferritin Total Bilirubin Alkaline Phosphatase Lactate Dehydrogenase Total Creatine Kinase CK-MB (CK-2) Rel Index Troponin T C-Reactive Protein Total Protein Albumin Prealbumin LDL Cholesterol Direct Arterial Blood Glucose Arterial Blood Ionized Calcium Urine WBC (Auto) 04/02/20 04/03/20 04/03/20 23:12 05:11 11:11 WBC RBC Hgb Hct MCV MCH RDW Plt Count Lymph % (Auto) [place] % (Auto) Lymph # (Auto) [place] # (Auto) Seg Neutrophils % Seg Neuts % (Manual) Lymphocytes % (Manual) Monocytes % (Manual) Basophils % (Manual) Seg Neutrophils # Seg Neutrophils # Man Lymphocytes # (Manual) Monocytes # (Manual) Eosinophils # (Manual) Basophils # (Manual) PT INR D-Dimer ABG pH POC ABG pCO2 POC ABG pO2 ABG pO2 ABG HCO3 ABG O2 Saturation ABG Base Excess ABG Hemoglobin ABG Oxyhemoglobin ABG Potassium ABG Glucose Oxyhemoglobin Carboxyhemoglobin Sodium Potassium Chloride Carbon Dioxide BUN Creatinine Glucose POC Glucose 130 H 139 H 136 H Calcium Ferritin Total Bilirubin Alkaline Phosphatase Lactate Dehydrogenase Total Creatine Kinase CK-MB (CK-2) Rel Index Troponin T C-Reactive Protein Total Protein Albumin Prealbumin LDL Cholesterol Direct Arterial Blood Glucose Arterial Blood Ionized Calcium Urine WBC (Auto) 04/03/20 04/03/20 04/04/20 16:51 23:25 05:29 WBC RBC Hgb Hct MCV MCH RDW Plt Count Lymph % (Auto) [place] % (Auto) Lymph # (Auto) [place] # (Auto) Seg Neutrophils % Seg Neuts % (Manual) Lymphocytes % (Manual) Monocytes % (Manual) Basophils % (Manual) Seg Neutrophils # Seg Neutrophils # Man Lymphocytes # (Manual) Monocytes # (Manual) Eosinophils # (Manual) Basophils # (Manual) PT INR D-Dimer ABG pH POC ABG pCO2 POC ABG pO2 ABG pO2 ABG HCO3 ABG O2 Saturation ABG Base Excess ABG Hemoglobin ABG Oxyhemoglobin ABG Potassium ABG Glucose Oxyhemoglobin Carboxyhemoglobin Sodium Potassium Chloride Carbon Dioxide BUN Creatinine Glucose POC Glucose 118 H 111 H 126 H Calcium Ferritin Total Bilirubin Alkaline Phosphatase Lactate Dehydrogenase Total Creatine Kinase CK-MB (CK-2) Rel Index Troponin T C-Reactive Protein Total Protein Albumin Prealbumin LDL Cholesterol Direct Arterial Blood Glucose Arterial Blood Ionized Calcium Urine WBC (Auto) 04/04/20 04/04/20 04/04/20 11:47 17:41 23:05 WBC RBC Hgb Hct MCV MCH RDW Plt Count Lymph % (Auto) [place] % (Auto) Lymph # (Auto) [place] # (Auto) Seg Neutrophils % Seg Neuts % (Manual) Lymphocytes % (Manual) Monocytes % (Manual) Basophils % (Manual) Seg Neutrophils # Seg Neutrophils # Man Lymphocytes # (Manual) Monocytes # (Manual) Eosinophils # (Manual) Basophils # (Manual) PT INR D-Dimer ABG pH POC ABG pCO2 POC ABG pO2 ABG pO2 ABG HCO3 ABG O2 Saturation ABG Base Excess ABG Hemoglobin ABG Oxyhemoglobin ABG Potassium ABG Glucose Oxyhemoglobin Carboxyhemoglobin Sodium Potassium Chloride Carbon Dioxide BUN Creatinine Glucose POC Glucose 123 H 120 H 119 H Calcium Ferritin Total Bilirubin Alkaline Phosphatase Lactate Dehydrogenase Total Creatine Kinase CK-MB (CK-2) Rel Index Troponin T C-Reactive Protein Total Protein Albumin Prealbumin LDL Cholesterol Direct Arterial Blood Glucose Arterial Blood Ionized Calcium Urine WBC (Auto) 04/05/20 04/05/20 04/05/20 05:14 12:16 18:48 WBC RBC Hgb Hct MCV MCH RDW Plt Count Lymph % (Auto) [place] % (Auto) Lymph # (Auto) [place] # (Auto) Seg Neutrophils % Seg Neuts % (Manual) Lymphocytes % (Manual) Monocytes % (Manual) Basophils % (Manual) Seg Neutrophils # Seg Neutrophils # Man Lymphocytes # (Manual) Monocytes # (Manual) Eosinophils # (Manual) Basophils # (Manual) PT INR D-Dimer ABG pH POC ABG pCO2 POC ABG pO2 ABG pO2 ABG HCO3 ABG O2 Saturation ABG Base Excess ABG Hemoglobin ABG Oxyhemoglobin ABG Potassium ABG Glucose Oxyhemoglobin Carboxyhemoglobin Sodium Potassium Chloride Carbon Dioxide BUN Creatinine Glucose POC Glucose 123 H 148 H 106 H Calcium Ferritin Total Bilirubin Alkaline Phosphatase Lactate Dehydrogenase Total Creatine Kinase CK-MB (CK-2) Rel Index Troponin T C-Reactive Protein Total Protein Albumin Prealbumin LDL Cholesterol Direct Arterial Blood Glucose Arterial Blood Ionized Calcium Urine WBC (Auto) 04/06/20 04/06/20 04/06/20 00:47 03:26 08:24 WBC RBC Hgb Hct MCV MCH RDW Plt Count Lymph % (Auto) [place] % (Auto) Lymph # (Auto) [place] # (Auto) Seg Neutrophils % Seg Neuts % (Manual) Lymphocytes % (Manual) Monocytes % (Manual) Basophils % (Manual) Seg Neutrophils # Seg Neutrophils # Man Lymphocytes # (Manual) Monocytes # (Manual) Eosinophils # (Manual) Basophils # (Manual) PT INR D-Dimer ABG pH POC ABG pCO2 POC ABG pO2 ABG pO2 ABG HCO3 ABG O2 Saturation ABG Base Excess ABG Hemoglobin ABG Oxyhemoglobin ABG Potassium ABG Glucose Oxyhemoglobin Carboxyhemoglobin Sodium Potassium Chloride Carbon Dioxide BUN Creatinine Glucose POC Glucose 129 H 134 H 131 H Calcium Ferritin Total Bilirubin Alkaline Phosphatase Lactate Dehydrogenase Total Creatine Kinase CK-MB (CK-2) Rel Index Troponin T C-Reactive Protein Total Protein Albumin Prealbumin LDL Cholesterol Direct Arterial Blood Glucose Arterial Blood Ionized Calcium Urine WBC (Auto) 04/06/20 04/06/20 04/06/20 11:16 16:27 23:01 WBC RBC Hgb Hct MCV MCH RDW Plt Count Lymph % (Auto) [place] % (Auto) Lymph # (Auto) [place] # (Auto) Seg Neutrophils % Seg Neuts % (Manual) Lymphocytes % (Manual) Monocytes % (Manual) Basophils % (Manual) Seg Neutrophils # Seg Neutrophils # Man Lymphocytes # (Manual) Monocytes # (Manual) Eosinophils # (Manual) Basophils # (Manual) PT INR D-Dimer ABG pH POC ABG pCO2 POC ABG pO2 ABG pO2 ABG HCO3 ABG O2 Saturation ABG Base Excess ABG Hemoglobin ABG Oxyhemoglobin ABG Potassium ABG Glucose Oxyhemoglobin Carboxyhemoglobin Sodium Potassium Chloride Carbon Dioxide BUN Creatinine Glucose POC Glucose 131 H 107 H 125 H Calcium Ferritin Total Bilirubin Alkaline Phosphatase Lactate Dehydrogenase Total Creatine Kinase CK-MB (CK-2) Rel Index Troponin T C-Reactive Protein Total Protein Albumin Prealbumin LDL Cholesterol Direct Arterial Blood Glucose Arterial Blood Ionized Calcium Urine WBC (Auto) 04/07/20 04/07/20 04/07/20 05:24 12:41 17:40 WBC RBC Hgb Hct MCV MCH RDW Plt Count Lymph % (Auto) [place] % (Auto) Lymph # (Auto) [place] # (Auto) Seg Neutrophils % Seg Neuts % (Manual) Lymphocytes % (Manual) Monocytes % (Manual) Basophils % (Manual) Seg Neutrophils # Seg Neutrophils # Man Lymphocytes # (Manual) Monocytes # (Manual) Eosinophils # (Manual) Basophils # (Manual) PT INR D-Dimer ABG pH POC ABG pCO2 POC ABG pO2 ABG pO2 ABG HCO3 ABG O2 Saturation ABG Base Excess ABG Hemoglobin ABG Oxyhemoglobin ABG Potassium ABG Glucose Oxyhemoglobin Carboxyhemoglobin Sodium Potassium Chloride Carbon Dioxide BUN Creatinine Glucose POC Glucose 125 H 145 H 123 H Calcium Ferritin Total Bilirubin Alkaline Phosphatase Lactate Dehydrogenase Total Creatine Kinase CK-MB (CK-2) Rel Index Troponin T C-Reactive Protein Total Protein Albumin Prealbumin LDL Cholesterol Direct Arterial Blood Glucose Arterial Blood Ionized Calcium Urine WBC (Auto) 04/07/20 04/08/20 04/08/20 23:22 05:40 11:29 WBC RBC Hgb Hct MCV MCH RDW Plt Count Lymph % (Auto) [place] % (Auto) Lymph # (Auto) [place] # (Auto) Seg Neutrophils % Seg Neuts % (Manual) Lymphocytes % (Manual) Monocytes % (Manual) Basophils % (Manual) Seg Neutrophils # Seg Neutrophils # Man Lymphocytes # (Manual) Monocytes # (Manual) Eosinophils # (Manual) Basophils # (Manual) PT INR D-Dimer ABG pH POC ABG pCO2 POC ABG pO2 ABG pO2 ABG HCO3 ABG O2 Saturation ABG Base Excess ABG Hemoglobin ABG Oxyhemoglobin ABG Potassium ABG Glucose Oxyhemoglobin Carboxyhemoglobin Sodium Potassium Chloride Carbon Dioxide BUN Creatinine Glucose POC Glucose 133 H 125 H 116 H Calcium Ferritin Total Bilirubin Alkaline Phosphatase Lactate Dehydrogenase Total Creatine Kinase CK-MB (CK-2) Rel Index Troponin T C-Reactive Protein Total Protein Albumin Prealbumin LDL Cholesterol Direct Arterial Blood Glucose Arterial Blood Ionized Calcium Urine WBC (Auto) 04/08/20 04/09/20 04/09/20 17:43 05:47 12:22 WBC RBC Hgb Hct MCV MCH RDW Plt Count Lymph % (Auto) [place] % (Auto) Lymph # (Auto) [place] # (Auto) Seg Neutrophils % Seg Neuts % (Manual) Lymphocytes % (Manual) Monocytes % (Manual) Basophils % (Manual) Seg Neutrophils # Seg Neutrophils # Man Lymphocytes # (Manual) Monocytes # (Manual) Eosinophils # (Manual) Basophils # (Manual) PT INR D-Dimer ABG pH POC ABG pCO2 POC ABG pO2 ABG pO2 ABG HCO3 ABG O2 Saturation ABG Base Excess ABG Hemoglobin ABG Oxyhemoglobin ABG Potassium ABG Glucose Oxyhemoglobin Carboxyhemoglobin Sodium Potassium Chloride Carbon Dioxide BUN Creatinine Glucose POC Glucose 123 H 108 H 116 H Calcium Ferritin Total Bilirubin Alkaline Phosphatase Lactate Dehydrogenase Total Creatine Kinase CK-MB (CK-2) Rel Index Troponin T C-Reactive Protein Total Protein Albumin Prealbumin LDL Cholesterol Direct Arterial Blood Glucose Arterial Blood Ionized Calcium Urine WBC (Auto) 04/09/20 04/09/20 04/10/20 17:24 23:52 06:10 WBC RBC Hgb Hct MCV MCH RDW Plt Count Lymph % (Auto) [place] % (Auto) Lymph # (Auto) [place] # (Auto) Seg Neutrophils % Seg Neuts % (Manual) Lymphocytes % (Manual) Monocytes % (Manual) Basophils % (Manual) Seg Neutrophils # Seg Neutrophils # Man Lymphocytes # (Manual) Monocytes # (Manual) Eosinophils # (Manual) Basophils # (Manual) PT INR D-Dimer ABG pH POC ABG pCO2 POC ABG pO2 ABG pO2 ABG HCO3 ABG O2 Saturation ABG Base Excess ABG Hemoglobin ABG Oxyhemoglobin ABG Potassium ABG Glucose Oxyhemoglobin Carboxyhemoglobin Sodium Potassium Chloride Carbon Dioxide BUN Creatinine Glucose POC Glucose 108 H 126 H 122 H Calcium Ferritin Total Bilirubin Alkaline Phosphatase Lactate Dehydrogenase Total Creatine Kinase CK-MB (CK-2) Rel Index Troponin T C-Reactive Protein Total Protein Albumin Prealbumin LDL Cholesterol Direct Arterial Blood Glucose Arterial Blood Ionized Calcium Urine WBC (Auto) 04/10/20 04/10/20 04/10/20 11:27 18:11 23:24 WBC RBC Hgb Hct MCV MCH RDW Plt Count Lymph % (Auto) [place] % (Auto) Lymph # (Auto) [place] # (Auto) Seg Neutrophils % Seg Neuts % (Manual) Lymphocytes % (Manual) Monocytes % (Manual) Basophils % (Manual) Seg Neutrophils # Seg Neutrophils # Man Lymphocytes # (Manual) Monocytes # (Manual) Eosinophils # (Manual) Basophils # (Manual) PT INR D-Dimer ABG pH POC ABG pCO2 POC ABG pO2 ABG pO2 ABG HCO3 ABG O2 Saturation ABG Base Excess ABG Hemoglobin ABG Oxyhemoglobin ABG Potassium ABG Glucose Oxyhemoglobin Carboxyhemoglobin Sodium Potassium Chloride Carbon Dioxide BUN Creatinine Glucose POC Glucose 129 H 125 H 107 H Calcium Ferritin Total Bilirubin Alkaline Phosphatase Lactate Dehydrogenase Total Creatine Kinase CK-MB (CK-2) Rel Index Troponin T C-Reactive Protein Total Protein Albumin Prealbumin LDL Cholesterol Direct Arterial Blood Glucose Arterial Blood Ionized Calcium Urine WBC (Auto) 04/11/20 04/11/20 04/11/20 05:28 11:46 23:49 WBC RBC Hgb Hct MCV MCH RDW Plt Count Lymph % (Auto) [place] % (Auto) Lymph # (Auto) [place] # (Auto) Seg Neutrophils % Seg Neuts % (Manual) Lymphocytes % (Manual) Monocytes % (Manual) Basophils % (Manual) Seg Neutrophils # Seg Neutrophils # Man Lymphocytes # (Manual) Monocytes # (Manual) Eosinophils # (Manual) Basophils # (Manual) PT INR D-Dimer ABG pH POC ABG pCO2 POC ABG pO2 ABG pO2 ABG HCO3 ABG O2 Saturation ABG Base Excess ABG Hemoglobin ABG Oxyhemoglobin ABG Potassium ABG Glucose Oxyhemoglobin Carboxyhemoglobin Sodium Potassium Chloride Carbon Dioxide BUN Creatinine Glucose POC Glucose 122 H 122 H 116 H Calcium Ferritin Total Bilirubin Alkaline Phosphatase Lactate Dehydrogenase Total Creatine Kinase CK-MB (CK-2) Rel Index Troponin T C-Reactive Protein Total Protein Albumin Prealbumin LDL Cholesterol Direct Arterial Blood Glucose Arterial Blood Ionized Calcium Urine WBC (Auto) 04/12/20 04/12/20 04/12/20 09:07 09:07 11:39 WBC 13.1 H RBC 3.59 L Hgb 9.5 L Hct 29.8 L MCV 83 L MCH 26 L RDW 16.6 H Plt Count 591 H Lymph % (Auto) [place] % (Auto) Lymph # (Auto) [place] # (Auto) Seg Neutrophils % Seg Neuts % (Manual) 86.0 H Lymphocytes % (Manual) 7.0 L Monocytes % (Manual) Basophils % (Manual) Seg Neutrophils # Seg Neutrophils # Man 11.3 H Lymphocytes # (Manual) 0.9 L Monocytes # (Manual) Eosinophils # (Manual) Basophils # (Manual) PT INR D-Dimer ABG pH POC ABG pCO2 POC ABG pO2 ABG pO2 ABG HCO3 ABG O2 Saturation ABG Base Excess ABG Hemoglobin ABG Oxyhemoglobin ABG Potassium ABG Glucose Oxyhemoglobin Carboxyhemoglobin Sodium Potassium Chloride Carbon Dioxide 36 H BUN Creatinine < 0.2 L Glucose 132 H POC Glucose 136 H Calcium Ferritin Total Bilirubin Alkaline Phosphatase Lactate Dehydrogenase Total Creatine Kinase CK-MB (CK-2) Rel Index Troponin T C-Reactive Protein Total Protein Albumin 2.7 L Prealbumin LDL Cholesterol Direct Arterial Blood Glucose Arterial Blood Ionized Calcium Urine WBC (Auto) 04/12/20 04/12/20 04/13/20 18:13 23:07 05:45 WBC RBC Hgb Hct MCV MCH RDW Plt Count Lymph % (Auto) [place] % (Auto) Lymph # (Auto) [place] # (Auto) Seg Neutrophils % Seg Neuts % (Manual) Lymphocytes % (Manual) Monocytes % (Manual) Basophils % (Manual) Seg Neutrophils # Seg Neutrophils # Man Lymphocytes # (Manual) Monocytes # (Manual) Eosinophils # (Manual) Basophils # (Manual) PT INR D-Dimer ABG pH POC ABG pCO2 POC ABG pO2 ABG pO2 ABG HCO3 ABG O2 Saturation ABG Base Excess ABG Hemoglobin ABG Oxyhemoglobin ABG Potassium ABG Glucose Oxyhemoglobin Carboxyhemoglobin Sodium Potassium Chloride Carbon Dioxide BUN Creatinine Glucose POC Glucose 107 H 106 H 125 H Calcium Ferritin Total Bilirubin Alkaline Phosphatase Lactate Dehydrogenase Total Creatine Kinase CK-MB (CK-2) Rel Index Troponin T C-Reactive Protein Total Protein Albumin Prealbumin LDL Cholesterol Direct Arterial Blood Glucose Arterial Blood Ionized Calcium Urine WBC (Auto) 04/13/20 04/13/20 04/13/20 11:18 17:56 23:33 WBC RBC Hgb Hct MCV MCH RDW Plt Count Lymph % (Auto) [place] % (Auto) Lymph # (Auto) [place] # (Auto) Seg Neutrophils % Seg Neuts % (Manual) Lymphocytes % (Manual) Monocytes % (Manual) Basophils % (Manual) Seg Neutrophils # Seg Neutrophils # Man Lymphocytes # (Manual) Monocytes # (Manual) Eosinophils # (Manual) Basophils # (Manual) PT INR D-Dimer ABG pH POC ABG pCO2 POC ABG pO2 ABG pO2 ABG HCO3 ABG O2 Saturation ABG Base Excess ABG Hemoglobin ABG Oxyhemoglobin ABG Potassium ABG Glucose Oxyhemoglobin Carboxyhemoglobin Sodium Potassium Chloride Carbon Dioxide BUN Creatinine Glucose POC Glucose 133 H 110 H 114 H Calcium Ferritin Total Bilirubin Alkaline Phosphatase Lactate Dehydrogenase Total Creatine Kinase CK-MB (CK-2) Rel Index Troponin T C-Reactive Protein Total Protein Albumin Prealbumin LDL Cholesterol Direct Arterial Blood Glucose Arterial Blood Ionized Calcium Urine WBC (Auto) 04/14/20 04/14/20 04/14/20 05:58 11:45 17:48 WBC RBC Hgb Hct MCV MCH RDW Plt Count Lymph % (Auto) [place] % (Auto) Lymph # (Auto) [place] # (Auto) Seg Neutrophils % Seg Neuts % (Manual) Lymphocytes % (Manual) Monocytes % (Manual) Basophils % (Manual) Seg Neutrophils # Seg Neutrophils # Man Lymphocytes # (Manual) Monocytes # (Manual) Eosinophils # (Manual) Basophils # (Manual) PT INR D-Dimer ABG pH POC ABG pCO2 POC ABG pO2 ABG pO2 ABG HCO3 ABG O2 Saturation ABG Base Excess ABG Hemoglobin ABG Oxyhemoglobin ABG Potassium ABG Glucose Oxyhemoglobin Carboxyhemoglobin Sodium Potassium Chloride Carbon Dioxide BUN Creatinine Glucose POC Glucose 115 H 122 H 124 H Calcium Ferritin Total Bilirubin Alkaline Phosphatase Lactate Dehydrogenase Total Creatine Kinase CK-MB (CK-2) Rel Index Troponin T C-Reactive Protein Total Protein Albumin Prealbumin LDL Cholesterol Direct Arterial Blood Glucose Arterial Blood Ionized Calcium Urine WBC (Auto) 04/15/20 04/15/20 04/15/20 00:11 05:38 11:31 WBC RBC Hgb Hct MCV MCH RDW Plt Count Lymph % (Auto) [place] % (Auto) Lymph # (Auto) [place] # (Auto) Seg Neutrophils % Seg Neuts % (Manual) Lymphocytes % (Manual) Monocytes % (Manual) Basophils % (Manual) Seg Neutrophils # Seg Neutrophils # Man Lymphocytes # (Manual) Monocytes # (Manual) Eosinophils # (Manual) Basophils # (Manual) PT INR D-Dimer ABG pH POC ABG pCO2 POC ABG pO2 ABG pO2 ABG HCO3 ABG O2 Saturation ABG Base Excess ABG Hemoglobin ABG Oxyhemoglobin ABG Potassium ABG Glucose Oxyhemoglobin Carboxyhemoglobin Sodium Potassium Chloride Carbon Dioxide BUN Creatinine Glucose POC Glucose 120 H 109 H 123 H Calcium Ferritin Total Bilirubin Alkaline Phosphatase Lactate Dehydrogenase Total Creatine Kinase CK-MB (CK-2) Rel Index Troponin T C-Reactive Protein Total Protein Albumin Prealbumin LDL Cholesterol Direct Arterial Blood Glucose Arterial Blood Ionized Calcium Urine WBC (Auto) 04/15/20 04/16/20 04/16/20 17:35 06:00 11:29 WBC RBC Hgb Hct MCV MCH RDW Plt Count Lymph % (Auto) [place] % (Auto) Lymph # (Auto) [place] # (Auto) Seg Neutrophils % Seg Neuts % (Manual) Lymphocytes % (Manual) Monocytes % (Manual) Basophils % (Manual) Seg Neutrophils # Seg Neutrophils # Man Lymphocytes # (Manual) Monocytes # (Manual) Eosinophils # (Manual) Basophils # (Manual) PT INR D-Dimer ABG pH POC ABG pCO2 POC ABG pO2 ABG pO2 ABG HCO3 ABG O2 Saturation ABG Base Excess ABG Hemoglobin ABG Oxyhemoglobin ABG Potassium ABG Glucose Oxyhemoglobin Carboxyhemoglobin Sodium Potassium Chloride Carbon Dioxide BUN Creatinine Glucose POC Glucose 111 H 142 H 108 H Calcium Ferritin Total Bilirubin Alkaline Phosphatase Lactate Dehydrogenase Total Creatine Kinase CK-MB (CK-2) Rel Index Troponin T C-Reactive Protein Total Protein Albumin Prealbumin LDL Cholesterol Direct Arterial Blood Glucose Arterial Blood Ionized Calcium Urine WBC (Auto) 04/17/20 04/17/20 04/17/20 05:09 06:53 06:53 WBC 14.2 H RBC Hgb 10.1 L Hct 31.5 L MCV MCH 27 L RDW 17.2 H Plt Count 643 H Lymph % (Auto) [place] % (Auto) Lymph # (Auto) [place] # (Auto) Seg Neutrophils % Seg Neuts % (Manual) Lymphocytes % (Manual) Monocytes % (Manual) Basophils % (Manual) Seg Neutrophils # Seg Neutrophils # Man Lymphocytes # (Manual) Monocytes # (Manual) Eosinophils # (Manual) Basophils # (Manual) PT INR D-Dimer ABG pH POC ABG pCO2 POC ABG pO2 ABG pO2 ABG HCO3 ABG O2 Saturation ABG Base Excess ABG Hemoglobin ABG Oxyhemoglobin ABG Potassium ABG Glucose Oxyhemoglobin Carboxyhemoglobin Sodium Potassium Chloride 97.7 L Carbon Dioxide 38 H BUN Creatinine < 0.2 L Glucose 126 H POC Glucose 131 H Calcium Ferritin Total Bilirubin Alkaline Phosphatase Lactate Dehydrogenase Total Creatine Kinase CK-MB (CK-2) Rel Index Troponin T C-Reactive Protein Total Protein Albumin Prealbumin LDL Cholesterol Direct Arterial Blood Glucose Arterial Blood Ionized Calcium Urine WBC (Auto) 04/17/20 04/18/20 04/18/20 11:21 00:23 04:01 WBC 15.3 H RBC Hgb 10.1 L Hct 31.9 L MCV 82 L MCH 26 L RDW 17.2 H Plt Count 665 H Lymph % (Auto) 12.9 L [place] % (Auto) Lymph # (Auto) [place] # (Auto) 1.1 H Seg Neutrophils % 78.0 H Seg Neuts % (Manual) Lymphocytes % (Manual) Monocytes % (Manual) Basophils % (Manual) Seg Neutrophils # 11.9 H Seg Neutrophils # Man Lymphocytes # (Manual) Monocytes # (Manual) Eosinophils # (Manual) Basophils # (Manual) PT INR D-Dimer ABG pH POC ABG pCO2 POC ABG pO2 ABG pO2 ABG HCO3 ABG O2 Saturation ABG Base Excess ABG Hemoglobin ABG Oxyhemoglobin ABG Potassium ABG Glucose Oxyhemoglobin Carboxyhemoglobin Sodium Potassium Chloride Carbon Dioxide BUN Creatinine Glucose POC Glucose 140 H 125 H Calcium Ferritin Total Bilirubin Alkaline Phosphatase Lactate Dehydrogenase Total Creatine Kinase CK-MB (CK-2) Rel Index Troponin T C-Reactive Protein Total Protein Albumin Prealbumin LDL Cholesterol Direct Arterial Blood Glucose Arterial Blood Ionized Calcium Urine WBC (Auto) 04/18/20 04/18/20 04/18/20 04:01 11:29 17:30 WBC RBC Hgb Hct MCV MCH RDW Plt Count Lymph % (Auto) [place] % (Auto) Lymph # (Auto) [place] # (Auto) Seg Neutrophils % Seg Neuts % (Manual) Lymphocytes % (Manual) Monocytes % (Manual) Basophils % (Manual) Seg Neutrophils # Seg Neutrophils # Man Lymphocytes # (Manual) Monocytes # (Manual) Eosinophils # (Manual) Basophils # (Manual) PT INR D-Dimer ABG pH POC ABG pCO2 POC ABG pO2 ABG pO2 ABG HCO3 ABG O2 Saturation ABG Base Excess ABG Hemoglobin ABG Oxyhemoglobin ABG Potassium ABG Glucose Oxyhemoglobin Carboxyhemoglobin Sodium Potassium Chloride 97.0 L Carbon Dioxide 38 H BUN Creatinine < 0.2 L Glucose 117 H POC Glucose 136 H 107 H Calcium Ferritin Total Bilirubin Alkaline Phosphatase Lactate Dehydrogenase Total Creatine Kinase CK-MB (CK-2) Rel Index Troponin T C-Reactive Protein Total Protein Albumin Prealbumin LDL Cholesterol Direct Arterial Blood Glucose Arterial Blood Ionized Calcium Urine WBC (Auto) 04/18/20 04/19/20 04/19/20 23:19 06:51 06:51 WBC 12.2 H RBC Hgb 9.8 L Hct 31.1 L MCV 82 L MCH 26 L RDW 17.2 H Plt Count 549 H Lymph % (Auto) 6.5 L [place] % (Auto) Lymph # (Auto) 0.8 L [place] # (Auto) Seg Neutrophils % 86.7 H Seg Neuts % (Manual) Lymphocytes % (Manual) Monocytes % (Manual) Basophils % (Manual) Seg Neutrophils # 10.6 H Seg Neutrophils # Man Lymphocytes # (Manual) Monocytes # (Manual) Eosinophils # (Manual) Basophils # (Manual) PT INR D-Dimer ABG pH POC ABG pCO2 POC ABG pO2 ABG pO2 ABG HCO3 ABG O2 Saturation ABG Base Excess ABG Hemoglobin ABG Oxyhemoglobin ABG Potassium ABG Glucose Oxyhemoglobin Carboxyhemoglobin Sodium Potassium Chloride 97.8 L Carbon Dioxide 38 H BUN Creatinine < 0.2 L Glucose 123 H POC Glucose 127 H Calcium Ferritin Total Bilirubin Alkaline Phosphatase Lactate Dehydrogenase Total Creatine Kinase CK-MB (CK-2) Rel Index Troponin T C-Reactive Protein Total Protein Albumin Prealbumin LDL Cholesterol Direct Arterial Blood Glucose Arterial Blood Ionized Calcium Urine WBC (Auto) 04/19/20 04/19/20 04/20/20 13:41 18:33 05:56 WBC RBC Hgb Hct MCV MCH RDW Plt Count Lymph % (Auto) [place] % (Auto) Lymph # (Auto) [place] # (Auto) Seg Neutrophils % Seg Neuts % (Manual) Lymphocytes % (Manual) Monocytes % (Manual) Basophils % (Manual) Seg Neutrophils # Seg Neutrophils # Man Lymphocytes # (Manual) Monocytes # (Manual) Eosinophils # (Manual) Basophils # (Manual) PT INR D-Dimer ABG pH POC ABG pCO2 POC ABG pO2 ABG pO2 ABG HCO3 ABG O2 Saturation ABG Base Excess ABG Hemoglobin ABG Oxyhemoglobin ABG Potassium ABG Glucose Oxyhemoglobin Carboxyhemoglobin Sodium Potassium Chloride Carbon Dioxide BUN Creatinine Glucose POC Glucose 116 H 124 H 130 H Calcium Ferritin Total Bilirubin Alkaline Phosphatase Lactate Dehydrogenase Total Creatine Kinase CK-MB (CK-2) Rel Index Troponin T C-Reactive Protein Total Protein Albumin Prealbumin LDL Cholesterol Direct Arterial Blood Glucose Arterial Blood Ionized Calcium Urine WBC (Auto) 04/20/20 04/20/20 04/20/20 06:28 06:28 11:46 WBC RBC Hgb 10.2 L Hct 31.5 L MCV 82 L MCH 27 L RDW 17.1 H Plt Count 546 H Lymph % (Auto) 10.0 L [place] % (Auto) 9.8 H Lymph # (Auto) 1.1 L [place] # (Auto) 1.1 H Seg Neutrophils % 78.4 H Seg Neuts % (Manual) Lymphocytes % (Manual) Monocytes % (Manual) Basophils % (Manual) Seg Neutrophils # 8.5 H Seg Neutrophils # Man Lymphocytes # (Manual) Monocytes # (Manual) Eosinophils # (Manual) Basophils # (Manual) PT INR D-Dimer ABG pH POC ABG pCO2 POC ABG pO2 ABG pO2 ABG HCO3 ABG O2 Saturation ABG Base Excess ABG Hemoglobin ABG Oxyhemoglobin ABG Potassium ABG Glucose Oxyhemoglobin Carboxyhemoglobin Sodium Potassium Chloride 97.0 L Carbon Dioxide 38 H BUN Creatinine < 0.2 L Glucose 138 H POC Glucose 130 H Calcium Ferritin Total Bilirubin Alkaline Phosphatase Lactate Dehydrogenase Total Creatine Kinase CK-MB (CK-2) Rel Index Troponin T C-Reactive Protein Total Protein Albumin Prealbumin LDL Cholesterol Direct Arterial Blood Glucose Arterial Blood Ionized Calcium Urine WBC (Auto) Allied health notes reviewed: RT
[2020-04-21] MEDS: MORPHINE 2 MG/1 ML INJ IV PRN ×4 (05:56→19:56)
[2020-04-21] MEDS: ALPRAZolam 0.5 MG TAB PO PRN ×2 (05:58→15:24)
[2020-04-21 06:26] LABS: Hematocrit 31.1 % (35.5-45.6); Mean Corpuscular HGB Conc 32 % (32-34); Mean Corpuscular Volume 82 fl (84-94); Platelet Count 535 K/mm3 (140-440)
[2020-04-21 06:41] LABS: Basophils % (Auto) 0.5 % (0.0-1.8); Blood Urea Nitrogen 14 mg/dL (9-20); Calcium 8.8 mg/dL (8.4-10.2); Eosinophils # (Auto) 0.1 K/mm3 (0.0-0.4); Eosinophils % (Auto) 1.4 % (0.0-4.3); Hemolysis Index 0; Lymphocytes # (Auto) 1.1 K/mm3 (1.2-5.4); Lymphocytes % (Auto) 13.5 % (13.4-35.0); Monocytes # (Auto) 0.8 K/mm3 (0.0-0.8); Monocytes % (Auto) 9.2 % (0.0-7.3)
[2020-04-21 06:50] LABS: BUN/Creatinine Ratio 70
[2020-04-21] MEDS: MAGNESIUM HYDROXIDE (MOM) ORAL LIQD UDC PO PRN (08:52)
[2020-04-21] MEDS: MAGIC MOUTHWASH 30ML PO SCH ×3 (08:52→19:58)
[2020-04-21] MEDS: GLYCOPYRROLATE 1 MG TAB PO SCH ×3 (08:53→19:57)
[2020-04-21] MEDS: PREGABALIN 75 MG CAP PO SCH ×2 (09:01→21:33)
[2020-04-21] MEDS: DOCUSATE SODIUM 100 MG/10 ML ORAL LIQD FEEDTUBE SCH ×2 (09:02→21:32)
[2020-04-21] MEDS: LANSOPRAZOLE 30 MG SOLUTAB FEEDTUBE SCH (09:02)
[2020-04-21] MEDS: TAMSULOSIN 0.4 MG CAP PO SCH (09:02)
[2020-04-21] MEDS: METOPROLOL TARTRATE 25 MG TAB PO SCH ×2 (09:02→21:34)
[2020-04-21] MEDS: BACLOFEN 10 MG TAB PO SCH ×2 (09:02→21:33)
[2020-04-21] MEDS: SODIUM HYPOCHLORITE, DAKIN'S 1/2 STRENGTH (0.25%) 473 ML TOPICAL SOLN TP SCH ×2 (09:03→21:36)
--- NOTE | 2020-04-21 11:26 | Progress Note ---
Assessment and Plan Assessment and plan: --Acute hypoxic hypercapnic respiratory failure; S/p tracheostomy on ventilatory support etiology secondary to sepsis, ALS, multifocal pneumonia (Covid negative). Pulmonary following --ALS --Oral thrush Nystatin/Magic mouthwash swish and spit --Constipation; Patient already received Dulcolax suppository and Colace Received milk of magnesia, with relief --History of ALS - Stable --Elevated D-dimers; imaging studies negative for PE and DVT --Bilateral pneumonia; probably community-acquired Completed the treatment, continue supportive care --Sepsis secondary to pneumonia; completed the treatment resolved --Elevated troponin non-ST elevation [place] type II Continue current management --Febrile illness; resolved ,secondary to pneumonia Complete antibiotics , resolved --DVT prophylaxis; Lovenox. 02/25/2020. CTA of the chest reveals no PE but does illustrate the bilateral pneumonia. Doppler ultrasound also negative for DVT. Blood cultures are pending. Await COVID-19 testing. Patient currently requiring BiPAP IPAP 24/EPAP 6 with FiO2 of 25%. Continue O2 and BiPAP as clinically indicated. ID and pulmonary consulted. 02/26/2020. Blood cultures are negative x48 hours and Covid testing negative as well. Continue antibiotics per ID recommendations for community-acquired bilate ral pneumonia. Cardiology consultation for elevated troponin. Check echocardiogram. 02/27/2020. Events of yesterday noted with asystole following V. fib arrest. Patient currently on AC mode rate 20, tidal volume 400, FiO2 50% and a PEEP of 6. Follow-up echocardiogram for elevated troponin. Cardiology suspects NSTEMI Type 2 in the setting of acute resp failure. Chest CTA and BLE Dopplers neg. we will discontinue Decadron given the Covid PCR is negative. 02/28/2020. I spoke with the sister Felisa Eli who is the power of civil rights attorney regarding advanced directives and she instructed me that she would like to continue with aggressive care at this time. I informed her of the guarded prognosis and high mortality/morbidity and she voiced understanding. Patient currently with AC mode ventilation rate 18, tidal volume 400, FiO2 40% and a PEEP of 6. Continue antibiotics for pneumonia. ID previously consulted. Also consult neurology with regards to ALS. 02/29/2020; patient is intubated and on CPAP patient is alert and oriented. Patient has ALS. Dr. Álvarez spoke with his sister and she wants aggressive care. Continue antibiotics for pneumonia. Neurology consulted for ALS. Progno sis poor 03/01/2020; patient is intubated and on CPAP, patient is alert and oriented. I spoke with his 2 sisters about the management plan. 03/02/2020; patient is intubated and on CPAP. Patient was alert and oriented. I spoke with Dr. mohr and he thinks patient may need mechanical ventilat ion, likely his disease progressed. Dr. Flowers did debridement this morning. 03/03/2020; patient is intubated and on CPAP, patient was on trilogy and BiPAP at home. Patient has ALS. on spontaneous breathing trial. Patient is alert and oriented but quadriplegic. Patient has severe bilateral pneumonia and is on cefepime and Vanco, ID is following. Patient has sacral decubitus ulcer and debridement was done by Dr. Flowers and there is no osteomyelitis. 03/05. Patient still on broad-spectrum antibiotics. Status post sacral decubitus ulcer debridements-no osteomyelitis. Patient is on AC 25/400/30% PEEP 5. No blood gas results today. 03/06. Plan for tracheostomy by surgery. Still remains intubated. Labs reviewed-sodium 150. Started on free water 200 every 8hr. trend sodium. 03/07: s/p trach placement today, patient placed back on mechanical ventilation with trach. Plan to resume tube feeding with NG tube. Continue to monitor vitals, monitor BMP. 03/08: Patient noted to have distended abdomen with low urinary output. Obtain bladder scan rule out urine retention, UA and urine culture, continue to follow clinically. 03/09: Patient noted to have low blood pressure with SBP as low as 70s. Ordered for 500 mils normal saline bolus. CT abdomen showed bladder outlet obstruction, urology consulted. 03/10: placed on drake by urology o/n, improved urine outpt. cont to monitor BMP. resuded TF - cont free water with TF. wean off from vent as tolerated. 03/11: Vitals stable. cont TF, wean off from vent as tolerated. start on 1/2 NS for hypernatremia - follow BMP 03/12: wean off vent as tolerated, plan for speech eval, cont Tf for now, cont iv fluid 03/13: unable to wean off from vent, unable to do speech therapy eval. will need PEG tube, cont supportive care for now, cont NG tube feeding 03/14: consulted GI for PEg placemnet, cont supportive care. remains on vent at night 03/15: Discussed with GI, plan for PEG tube placement possibly tomorrow. Continue supportive care and wean off from vent as tolerated. Hold Lovenox dose tonight. 03/16: family didnot consent for PEG placement yesterday. I spoke with the daughter today and she is now agreeable for PEG tube. I explained the necessity of the procedure with RN to the patient also and he nodded started on tube feeding, for the procedure. will cont supportive care. planned for PEG tube placement tomorrow. 03/17: s/p PEG placement today, patient tolerated well, cont supportive care 03/18: Started on tube feeding with new PEG tube, continue to wean off vent as tolerated 03/19: cont to monitor with supportive care, wean off vent as tolerated 03/20: Continue to wean off vent as tolerated -but failing weaning trial. Still requiring vent support at night. Currently on PEG tube for tube feed. 03/21. Pt with PSV trials with FiO@ 30%, PEEP 6, PS 10. Currently on PEG tube for tube feed. 03/22/2020. Continue PSV trials per pulmonary. Continue bronchodilators. Patient tolerating tube feedings. Continue Robinul for secretion control. 03/23/2020. Continue PSV trials per pulmonary. Continue bronchodilators. Continue Scopolamine and Robinul for secretion control. Trach care/airway management. Mobility protocols for pressure ulcer prophylaxis. LTAC evaluation per case management 03/24/2020. Continue PSV trials with current settings pressure support 10, PEEP 6 and FiO2 30%. Continue bronchodilators/nebulizer. Continue Scopolamine and Robinul for secretion control. Trach care/airway management. Mobility protocols for pressure ulcer prophylaxis. LTAC evaluation per case management 03/25/2020. Pulmonary to proceed with T-piece trials today. Continue bronchodi lators/nebulizer. Continue Scopolamine and Robinul for secretion control. Trach care/airway management. Mobility protocols for pressure ulcer prophylaxis. 03/26/2020. Patient currently with PSV 10/6 at FiO2 of 30%. Continue weaning and T-piece trials per protocol. Continue bronchodilators/nebulizer. Continue Scopolamine and Robinul for secretion control. Trach care/airway management. Mobility protocols for pressure ulcer prophylaxis. Continue tube feeding with aspiration precautions. 03/27/2020. Patient currently with PSV 01/31 at FiO2 of 30%. Continue weaning and T-piece trials per protocol. Continue bronchodilators/nebulizer. Continue Scopolamine and Robinul for secretion control. Trach care/airway management. Mobility protocols for pressure ulcer prophylaxis. Continue tube feeding with aspiration precautions. 03/28. Had temp 100.7F. He has been off antibiotics. Will send blood culture, ua, urine culture and chest xray. Had chest pain overnight and trop was elevated as well. Cardiology to evaluate 03/29. Has back pain due to position. He mentions his chest pain is positional. Has no other complaints. Still on mechanical ventilation 03/30. No chest pain today. Labs reviewed. Discussed chest pain with cardiology and team advised no further work up at this time. Can follow up with cardiology in the office after hospitalization 03/31. Lidocaine patch for lower back pain. 04/01. Discharge planning underway. CM notes reviewed. Discussed with daughter 04/02 - . CM trying to arrange discharge. Continue PSV trials. Discussed with patients significant other 04/04/2020; CM is working for discharge arrangement. Continue PSV trials. 04/05/2020; patient was seen and evaluated this morning and no change from baseline. Continue with PSV trials. Follow with marketing account manager for discharge planning. 04/06/2020;patient was seen and evaluated this morning and no change from baseline. Continue with PSV trials. Follow with marketing account manager for discharge planning. 04/07/2020; patient was seen and evaluated this morning and no change from baseline. Continue with PSV trials. Follow with marketing account manager for discharge planning. 04/08/2020; patient is vent dependent. Discharge is per marketing account manager. 04/09/2020 patient is vent dependent, possible LTAC placement 04/10/2020; tracheostomy on vent, vent dependent pending LTAC placement 04/11/2020; clinically no change, tracheostomy on ventilatory support, wean as tolerated, awaiting placement 04/12/2020; remains on ventilatory support, unable to wean, patient wants to see a speech therapist for sound box However we cannot try that as long as he is on ventilatory support, once he is weaned off vent We will consult speech therapist, plan of care reviewed with the patient and his nurse 04/14/2020; clinically no change, on ventilatory support, complains of constipation, milk of magnesia Closely monitor the patient and adjust the management as needed 04/15/2020; patient has some oral thrush on the tongue, will give Magic mouthwash/nystatin swish and spit Wean off vent as tolerated 04/16 patient is alert and oriented, unable to comprehend what he is trying to tell but appears to complain of some pain, no acute events overnight, all interdisciplinary notes reviewed. Waiting for LTAC versus long-term f acility placement 04/17/2020. Continue supportive care with mechanical ventilation. Patient currently on AC mode rate 10, tidal volume 400 FiO2 30% with a PEEP of 6. Discharge planning per case management. 04/18/2020. Patient remains on mechanical ventilation AC mode rate 10, tidal volume 400, FiO2 30% and PEEP of 6. Continue spontaneous breathing trials as tolerated. Previously, patient was considered for discharge home with skilled staff providing care for 12 hours 7 days/week. Continue discussed with case management discharge planning. 04/19/20. Patient remains on mechanical ventilation AC mode rate 10, tidal volume 400, FiO2 30% and PEEP of 6. Continue spontaneous breathing trials as tolerated. 04/20/2020. Patient remains on mechanical ventilation AC mode rate 10, tidal volume 400, FiO2 30% and PEEP of 6. Continue spontaneous breathing trials as tolerated. 04/21/2020. Patient remains on mechanical ventilation AC mode rate 10, tidal volume 400, FiO2 30% and PEEP of 6. Continue tracheostomy care, secretion control and airway management. Continue spontaneous breathing trials as tolerated. The high probability of a clinically significant, sudden or life threatening deterioration of the [cardiac and respiratory] system(s) required my full and direct attention, intervention and personal management. The aggregate critical care time was [32] minutes. This time is in addition to time spent performing reported procedures but includes the following: [x] Data Review and interpretation [x] Patient assessment and monitoring of vital signs [x] Documentation [x] Medication orders and management History Interval history: 59-year-old male patient with significant past medical history of ALS, presented to ED with worsening shortness of breath since the morning FLOORHAND. Patient was on a trilogy machine for breathing 18/11. EMS arrived, patient had O2 sats in the 80s. EMS attempted to place patient on their CPAP machine, however patient did not tolerate. Patient was admitted to the ICU with diagnosis of acute hypoxic respiratory failure and placed on BiPAP. Patient initially tolerated but later deteriorated with respiratory status. CTA chest showed no PE but significant for bilateral pneumonia. Doppler ultrasound also negative for DVT. COVID-19 test ordered. Due to persistent hypoxia, patient was intubated on 02/26/2020 at 1500. Patient now on mechanical ventilation in the ICU s/p trach placement and now unable to wean off from the mechanical ventilation. Patient now status post PEG placement for tube feeding. Pending long-term placement -LTAC versus SNF Hospitalist Physical - Constitutional Vitals: Temp Pulse Resp BP Pulse Ox 98.3 F 98 H 12 100/72 100 04/21/20 08:00 04/21/20 10:00 04/21/20 10:00 04/21/20 10:00 04/21/20 09:00 General appearance: Present: no acute distress, cachectic - EENT Eyes: Present: PERRL, EOM intact ENT: hearing intact, clear oral mucosa, dentition normal - Neck Neck: Present: supple, normal ROM - Respiratory Respiratory effort: normal Respiratory: bilateral: CTA - Cardiovascular Rhythm: regular Heart Sounds: Present: S1 & S2. Absent: gallop, rub - Extremities Extremities: no ischemia, No edema, Full ROM - Abdominal General gastrointestinal: soft, non-tender, non-distended, normal bowel sounds - Integumentary Integumentary: Present: clear, warm, dry - Neurologic Neurologic: CNII-XII intact, moves all extremities HEART Score - HEART Score Troponin: Troponin T 0.090 ng/mL (0.00-0.029) H 03/28/20 17:17 Results - Labs CBC & Chem 7: 04/21/20 05:55 04/21/20 05:55 Labs: Laboratory Last Values WBC 8.3 K/mm3 (4.5-11.0) 04/21/20 05:55 RBC 3.80 M/mm3 (3.65-5.03) 04/21/20 05:55 Hgb 10.0 gm/dl (11.8-15.2) L 04/21/20 05:55 Hct 31.1 % (35.5-45.6) L 04/21/20 05:55 MCV 82 fl (84-94) L 04/21/20 05:55 MCH 26 pg (28-32) L 04/21/20 05:55 MCHC 32 % (32-34) 04/21/20 05:55 RDW 17.0 % (13.2-15.2) H 04/21/20 05:55 Plt Count 535 K/mm3 (140-440) H 04/21/20 05:55 Lymph % (Auto) 13.5 % (13.4-35.0) 04/21/20 05:55 [place] % (Auto) 9.2 % (0.0-7.3) H 04/21/20 05:55 Eos % (Auto) 1.4 % (0.0-4.3) 04/21/20 05:55 Baso % (Auto) 0.5 % (0.0-1.8) 04/21/20 05:55 Lymph # (Auto) 1.1 K/mm3 (1.2-5.4) L 04/21/20 05:55 [place] # (Auto) 0.8 K/mm3 (0.0-0.8) 04/21/20 05:55 Eos # (Auto) 0.1 K/mm3 (0.0-0.4) 04/21/20 05:55 Baso # (Auto) 0.0 K/mm3 (0.0-0.1) 04/21/20 05:55 Add Manual Diff Complete 04/12/20 09:07 Total Counted 100 04/12/20 09:07 Seg Neuts % (Manual) 86.0 % (40.0-70.0) H 04/12/20 09:07 Band Neutrophils % 0 % 03/28/20 10:28 Seg Neutrophils % 75.4 % (40.0-70.0) H 04/21/20 05:55 Lymphocytes % (Manual) 7.0 % (13.4-35.0) L 04/12/20 09:07 Reactive Lymphs % (Man) 0 % 03/28/20 10:28 Monocytes % (Manual) 3.0 % (0.0-7.3) 04/12/20 09:07 Eosinophils % (Manual) 1.0 % (0.0-4.3) 04/12/20 09:07 Basophils % (Manual) 1.0 % (0.0-1.8) 03/28/20 10:28 Metamyelocytes % 3.0 % 04/12/20 09:07 Myelocytes % 0 % 03/28/20 10:28 Promyelocytes % 0 % 03/28/20 10:28 Blast Cells % 0 % 03/28/20 10:28 Nucleated RBC % Not Reportable 04/12/20 09:07 Seg Neutrophils # Man 11.3 K/mm3 (1.8-7.7) H 04/12/20 09:07 Seg Neutrophils # 6.3 K/mm3 (1.8-7.7) 04/21/20 05:55 Band Neutrophils # 0.0 K/mm3 04/12/20 09:07 Lymphocytes # (Manual) 0.9 K/mm3 (1.2-5.4) L 04/12/20 09:07 Abs React Lymphs (Man) 0.0 K/mm3 04/12/20 09:07 Monocytes # (Manual) 0.4 K/mm3 (0.0-0.8) 04/12/20 09:07 Eosinophils # (Manual) 0.1 K/mm3 (0.0-0.4) 04/12/20 09:07 Basophils # (Manual) 0.0 K/mm3 (0.0-0.1) 04/12/20 09:07 Metamyelocytes # 0.4 K/mm3 04/12/20 09:07 Myelocytes # 0.0 K/mm3 04/12/20 09:07 Promyelocytes # 0.0 K/mm3 04/12/20 09:07 Blast Cells # 0.0 K/mm3 04/12/20 09:07 WBC Morphology Not Reportable 04/12/20 09:07 Hypersegmented Neuts Not Reportable 04/12/20 09:07 Hyposegmented Neuts Not Reportable 04/12/20 09:07 Hypogranular Neuts Not Reportable 04/12/20 09:07 Smudge Cells Not Reportable 04/12/20 09:07 Toxic Granulation Not Reportable 04/12/20 09:07 Toxic Vacuolation Not Reportable 04/12/20 09:07 Dohle Bodies Not Reportable 04/12/20 09:07 Pelger-Huet Anomaly Not Reportable 04/12/20 09:07 Robert Rods Not Reportable 04/12/20 09:07 Platelet Estimate Consistent w auto 04/12/20 09:07 Clumped Platelets Not Reportable 04/12/20 09:07 Plt Clumps, EDTA Not Reportable 04/12/20 09:07 Large Platelets Few 04/12/20 09:07 Giant Platelets Not Reportable 04/12/20 09:07 Platelet Satelliting Not Reportable 04/12/20 09:07 Plt Morphology Comment Not Reportable 04/12/20 09:07 RBC Morphology Not Reportable 04/12/20 09:07 Dimorphic RBCs Not Reportable 04/12/20 09:07 Polychromasia Few 04/12/20 09:07 Hypochromasia Not Reportable 04/12/20 09:07 Poikilocytosis Not Reportable 04/12/20 09:07 Anisocytosis 1+ 04/12/20 09:07 Microcytosis Not Reportable 04/12/20 09:07 Macrocytosis Not Reportable 04/12/20 09:07 Spherocytes Not Reportable 04/12/20 09:07 Pappenheimer Bodies Not Reportable 04/12/20 09:07 Sickle Cells Not Reportable 04/12/20 09:07 Target Cells Not Reportable 04/12/20 09:07 Tear Drop Cells Not Reportable 04/12/20 09:07 Ovalocytes Not Reportable 04/12/20 09:07 Stomatocytes Few 03/17/20 04:40 Helmet Cells Not Reportable 04/12/20 09:07 [place] Bodies Not Reportable 04/12/20 09:07 [place] Rings Not Reportable 04/12/20 09:07 Riaz Cells Not Reportable 04/12/20 09:07 Bite Cells Not Reportable 04/12/20 09:07 Crenated Cell Not Reportable 04/12/20 09:07 Elliptocytes Not Reportable 04/12/20 09:07 Acanthocytes (Spur) Not Reportable 04/12/20 09:07 Rouleaux Not Reportable 04/12/20 09:07 Hemoglobin C Crystals Not Reportable 04/12/20 09:07 Schistocytes Not Reportable 04/12/20 09:07 Malaria parasites Not Reportable 04/12/20 09:07 [place] Bodies Not Reportable 04/12/20 09:07 Hem Pathologist Commnt No 04/12/20 09:07 PT 15.6 Sec. (12.2-14.9) H 02/24/20 09:19 INR 1.21 (0.87-1.13) H 02/24/20 09:19 APTT 25.4 Sec. (24.2-36.6) 02/24/20 09:19 D-Dimer 1311.96 ng/mlDDU (0-234) H 02/24/20 09:19 ABG pH 7.371 (7.320-7.450) 03/08/20 12:34 POC ABG pCO2 63.1 mmHg (32.0-48.0) H 03/08/20 12:34 ABG pCO2 60.1 mm Hg 03/06/20 04:34 POC ABG pO2 90.5 mmHg (83-108) 03/08/20 12:34 ABG pO2 88.6 mm Hg (80.0-90.0) 03/06/20 04:34 POC ABG HCO3 35.7 03/08/20 12:34 ABG HCO3 37.9 mmol/L (20.0-26.0) H 03/06/20 04:34 ABG O2 Saturation 97.0 % (95.0-99.0) 03/06/20 04:34 ABG O2 Content 14.3 (0.0-44) 03/06/20 04:34 POC ABG Base Excess 8.7 03/08/20 12:34 ABG Base Excess 11.4 mmol/L (-2.0-3.0) H 03/06/20 04:34 ABG Hemoglobin 10.9 (12.0-17.5) L 03/08/20 12:34 ABG Oxyhemoglobin 95.9 (94-98) 03/08/20 12:34 ABG Carboxyhemoglobin 1.7 % (0.0-5.0) 03/06/20 04:34 ABG Methemoglobin 0.3 (0.0-1.5) 03/08/20 12:34 ABG Sodium 143.6 mmol/L (136.0-145.0) 03/08/20 12:34 ABG Potassium 3.8 mmol/L (3.40-4.50) 03/08/20 12:34 ABG Chloride 102.0 mmol/L (98-107) 03/08/20 12:34 ABG Glucose 176 mg/dL (65-95) H 03/08/20 12:34 Oxyhemoglobin 94.7 % (95.0-99.0) L 03/06/20 04:34 Carboxyhemoglobin 0.7 (0.5-1.5) 03/08/20 12:34 FiO2 30 03/08/20 12:34 Sodium 137 mmol/L (137-145) 04/21/20 05:55 Potassium 4.3 mmol/L (3.6-5.0) 04/21/20 05:55 Chloride 95.0 mmol/L (98-107) L 04/21/20 05:55 Carbon Dioxide 34 mmol/L (22-30) H 04/21/20 05:55 Anion Gap 12 mmol/L 04/21/20 05:55 BUN 14 mg/dL (9-20) 04/21/20 05:55 Creatinine < 0.2 mg/dL (0.8-1.3) L 04/21/20 05:55 Estimated GFR > 60 ml/min 04/21/20 05:55 BUN/Creatinine Ratio 70 % 04/21/20 05:55 Glucose 125 mg/dL (75-100) H 04/21/20 05:55 POC Glucose 105 mg/dL (70-105) 04/21/20 11:14 Lactic Acid 1.00 mmol/L (0.7-2.0) 02/24/20 12:07 Calcium 8.8 mg/dL (8.4-10.2) 04/21/20 05:55 Phosphorus 3.30 mg/dL (2.5-4.5) 03/29/20 14:35 Magnesium 1.90 mg/dL (1.7-2.3) 04/12/20 09:07 Ferritin 1715.0 ng/mL (30.0-300.0) H 02/24/20 10:01 Total Bilirubin 0.20 mg/dL (0.1-1.2) 04/12/20 09:07 AST 15 units/L (5-40) 04/12/20 09:07 ALT 15 units/L (7-56) 04/12/20 09:07 Alkaline Phosphatase 62 units/L (35-129) 04/12/20 09:07 Lactate Dehydrogenase 303 units/L (91-180) H 02/24/20 09:19 Total Creatine Kinase 47 units/L (55-170) L 03/28/20 17:17 CK-MB (CK-2) 2.2 ng/mL (0.0-4.0) 03/28/20 17:17 CK-MB (CK-2) Rel Index 4.6 (0-4) H 03/28/20 17:17 Troponin T 0.090 ng/mL (0.00-0.029) H 03/28/20 17:17 C-Reactive Protein 4.70 mg/dL (0.00-1.30) H 02/28/20 11:05 NT-Pro-B Natriuret Pep 48.30 pg/mL (0-900) 02/24/20 09:19 Total Protein 6.7 g/dL (6.3-8.2) 04/12/20 09:07 Albumin 2.7 g/dL (3.9-5) L 04/12/20 09:07 Albumin/Globulin Ratio 0.7 % 04/12/20 09:07 Prealbumin 0.090 g/L (0.200-0.400) L 02/28/20 12:54 Triglycerides 34 mg/dL (2-149) 03/22/20 18:00 Cholesterol 104 mg/dL (50-199) 03/22/20 18:00 LDL Cholesterol Direct 54 mg/dL (50-130) 03/22/20 18:00 HDL Cholesterol 40 mg/dL (40-59) 03/22/20 18:00 Cholesterol/HDL Ratio 2.60 % 03/22/20 18:00 Procalcitonin < 0.05 ng/mL (<0.15) 03/28/20 17:12 Arterial Blood Glucose 176 mg/dL (65-95) H 03/08/20 12:34 Arterial Blood Ionized Calcium 4.5 mg/dL (4.6-5.3) L 03/08/20 12:34 Urine Color Yellow (Yellow) 03/28/20 11:36 Urine Turbidity Hazy (Clear) 03/28/20 11:36 Urine pH 5.0 (5.0-7.0) 03/28/20 11:36 Ur Specific [place] 1.026 (1.003-1.030) 03/28/20 11:36 Urine Protein 100 mg/dl mg/dL (Negative) 03/28/20 11:36 Urine Glucose (UA) Neg mg/dL (Negative) 03/28/20 11:36 Urine Ketones Neg mg/dL (Negative) 03/28/20 11:36 Urine Blood Neg (Negative) 03/28/20 11:36 Urine Nitrite Neg (Negative) 03/28/20 11:36 Urine Bilirubin Neg (Negative) 03/28/20 11:36 Urine Urobilinogen 4.0 mg/dL (<2.0) 03/28/20 11:36 Ur Leukocyte Esterase Mod (Negative) 03/28/20 11:36 Urine WBC (Auto) 39.0 /HPF (0.0-6.0) H 03/28/20 11:36 Urine RBC (Auto) 16.0 /HPF (0.0-6.0) 03/28/20 11:36 U Epithel Cells (Auto) < 1.0 /HPF (0-13.0) 03/08/20 08:57 Urine Bacteria (Auto) 2+ /HPF (Negative) 03/28/20 11:36 Urine Mucus 3+ /HPF 03/28/20 11:36 Urine Yeast (Budding) 2+ /HPF 03/28/20 11:36 Vancomycin Trough 8.0 ug/mL (5.0-20.0) 03/04/20 08:59 Coronavirus (PCR) Negative (Negative) 02/25/20 09:03 - Diagnostic Impressions Diagnostic Impressions: Echocardiogram 02/26/20 10:41 Transthoracic Echocardiogram Indication: Elevated Trop BP: 116/75 HR: 85 Conclusions *Global left ventricular wall motion and contractility are within normal limits. *The estimated ejection fraction is 50-55%. *Abnormal left ventricular diastolic filling is observed, consistent with impaired relaxation. *There is no pericardial effusion. Findings Left Ventricle: The left ventricular chamber size is normal. Global left ventricular wall motion and contractility are within normal limits. Global left ventricular systolic function is normal. The estimated ejection fraction is 50-55%. Abnormal left ventricular diastolic filling is observed, consistent with impaired relaxation. Left Atrium: The left atrial chamber size is normal. Right Ventricle: The right ventricular cavity size is normal. Right Atrium: The right atrial cavity size is normal. Aortic Valve: Mild aortic leaflet calcification is visualized. There is no evidence of aortic regurgitation. Mitral Valve: The mitral valve leaflets are mildly thickened. There is no evidence of mitral regurgitation. Tricuspid Valve: The tricuspid valve leaflets are normal. There is trace tricuspid regurgitation. The right ventricular systolic pressure is calculated at 29 mmHg. Pulmonic Valve: The pulmonic valve is not well visualized. Pericardium: There is no pericardial effusion. Aorta: The aorta appears normal. Venous: The inferior vena cava is dilated. There is less than 50% respiratory change in the inferior vena cava dimension. Measurements Chambers 2D Name Value Normal Range IVSd (2D) 0.97 cm (0.6 - 1.1) LVPWd (2D) 0.93 cm (0.6 - 1.1) LVIDd (2D) 4 cm (3.7 - 5.6) LVIDs (2D) 2.73 cm (2 - 3.8) LV FS (2D) 31.67 % - EF Teichholz (2D) 60.23 % - Ao root diameter (2D) 3.51 cm (2 - 3.7) Volumes/Mass Name Value Normal Range LA ESV SP 4CH (A/L) 8.43 ml - LA ESV SP 2CH (A/L) 18.89 ml - LA ESV BP (A/L) 13.02 ml - LA ESV BP (A/L) index 8.8 ml/m2 - LA ESV SP 4CH (MOD) 7.22 ml - LA ESV SP 2CH (MOD) 18.15 ml - LA ESV BP (MOD) 11.47 ml - LA ESV BP (MOD) index 7.75 ml/m2 - Diastolic/Systolic Function Name Value Normal Range MV E-wave Vmax 0.51 m/sec - MV deceleration time 180.22 msec - MV A-wave Vmax 0.62 m/sec - MV E:A ratio 0.82 ratio - Aortic Valve Name Value Normal Range AV Vmax 1.17 m/sec - AV VTI 19.71 cm - AV peak gradient 5.44 mmHg - AV mean gradient 3.38 mmHg - LVOT diameter 2.26 cm - LVOT Vmax 0.89 m/sec - LVOT VTI 13.72 cm - LVOT peak gradient 3.17 mmHg - LVOT mean gradient 1.67 mmHg - SV LVOT 55.03 ml - SHARAD (continuity Vmax) 3.06 cm2 - SHARAD (continuity VTI) 2.79 cm2 - Tricuspid Valve Name Value Normal Range TR Vmax 2.3 m/sec - TR peak gradient 21 mmHg - RAP 8 mmHg - RVSP 29 mmHg - IVC diameter 2.59 cm (1.2 - 2.3) Pulmonic Valve/Qp:Qs Name Value Normal Range PV acceleration time 68.51 msec - Drake/IV: Voiding Method Indwelling Catheter IV Catheter Type [Right Wrist] INT / Saline Lock IV Catheter Type [Left Hand] Peripheral IV IV Catheter Type [Right Hand] Peripheral IV IV Catheter Type [Left Wrist] Peripheral IV IV Catheter Type [Right Peripheral IV Forearm] IV Catheter Type [Right Triple Lumen Cath Internal Jugular] IV Catheter Type [Left Forearm INT / Saline Lock ] IV Catheter Type [Right Triple Lumen Cath Femoral] IV Catheter Type [Right INT / Saline Lock Antecubital] Active Medications - Current Medications Current Medications: Generic Name Dose Route Start Last Admin Trade Name Freq PRN Reason Stop Dose Admin Acetaminophen 650 mg 02/24/20 15:13 04/20/20 16:24 Tylenol PO 650 mg Q4H PRN Administration Pain, Mild (1-3) Albuterol 2.5 mg 02/24/20 15:13 Proventil IH Q4HRT PRN Shortness Of Breath Alprazolam 0.5 mg 03/30/20 14:19 04/21/20 05:58 Xanax PO 0.5 mg Q8H PRN Administration Anxiety Lipase/Protease/Amylase 1 each 02/26/20 11:[address] 10,500 Unit FEEDTUBE PRN PRN For Clogged Feeding Tube Baclofen 10 mg 04/03/20 12:00 04/21/20 09:02 Lioresal PO 10 mg BID ALISA Administration Bisacodyl 10 mg 03/12/20 18:00 04/12/20 09:26 Bisacodyl 10 Mg Rect Supp ND 10 mg QDAY PRN Administration Bowel Movement Docusate Sodium 100 mg 04/03/20 12:00 04/21/20 09:02 Colace FEEDTUBE 100 mg BID ALISA Administration Enoxaparin Sodium 40 mg 03/20/20 22:00 04/20/20 21:23 Enoxaparin 40 Mg/0.4 Ml Inj SUB-Q 40 mg QDAY@2200 ALISA Administration Protocol Glycopyrrolate 2 mg 04/16/20 20:00 04/21/20 08:53 Glycopyrrolate 1 Mg Tab PO 2 mg TID ALISA Administration Lansoprazole 30 mg 02/28/20 10:00 04/21/20 09:02 Prevacid Solutab FEEDTUBE 30 mg QDAY ALISA Administration Lidocaine 1 each 03/31/20 10:00 04/20/20 09:32 Lidoderm 5% TD 1 each QDAY ALISA Administration Lidocaine HCl 15 ml 04/15/20 14:00 04/21/20 08:52 Magic Mouthwash 30ml PO 15 ml TID ALISA Administration Magnesium Hydroxide 30 ml 04/12/20 19:20 04/21/20 08:52 Magnesium Hydroxide (Mom) Oral Liqd Udc PO 30 ml Q4H PRN Administration Constipation Metoprolol Tartrate 12.5 mg 02/24/20 22:00 04/21/20 09:02 Metoprolol PO 12.5 mg BID ALISA Administration Morphine Sulfate 2 mg 02/29/20 16:42 04/21/20 05:56 Morphine IV 2 mg Q4H PRN Administration Pain, Moderate (4-6) Pregabalin 150 mg 04/03/20 12:00 04/21/20 09:01 Pregabalin PO 150 mg BID ALISA Administration Scopolamine 1 each 03/03/20 14:00 04/20/20 09:32 Transderm-Scop TD 1 each Q3D ALISA Administration Senna 17.2 mg 04/03/20 22:00 04/20/20 21:22 Senokot PO 17.2 mg QHS ALISA Administration Simple Syrup 15 ml 02/26/20 11:16 Simple Syrup FEEDTUBE PRN PRN Hypoglycemia Simple Syrup 30 ml 02/26/20 11:16 Simple Syrup FEEDTUBE PRN PRN Hypoglycemia Sodium Bicarbonate 325 mg 02/26/20 11:16 Sodium Bicarbonate FEEDTUBE PRN PRN For Clogged Feeding Tube Sodium Hypochlorite 1 applic 03/31/20 13:00 04/21/20 09:03 Dakin's Half Strength TP 0.25 package BID ALISA Administration Tamsulosin HCl 0.4 mg 03/09/20 18:00 04/21/20 09:02 Tamsulosin 0.4 Mg Cap PO 0.4 mg QDAY ALISA Administration Zolpidem Tartrate 10 mg 03/31/20 20:15 04/20/20 21:21 Ambien PO 10 mg QHS PRN Administration Sleep Nutrition/Malnutrition Assess - Dietary Evaluation Nutrition/Malnutrition Findings: Nutrition Notes Start: 02/26/20 10:40 Freq: Status: Active Protocol: Document 04/18/20 12:15 AB (Rec: 04/18/20 12:16 AB [id number]) Co-Sign 04/18/20 12:15 LP Nutrition Notes Initial or Follow up Brief Note Current Diagnosis Decubitus(Pressure Ulcer), Sepsis,Respiratory Failure Other Pertinent Diagnosis COVID-19 (-), ALS, pneumonia, Hip/buttock PU Current Diet Vital AF 1.2 at 75ml/hr (goal rate) Subjective/Other Information F/U for TF tolerance. Per RN, pt TF is running at goal and tolerating it. Nutrition Intervention Follow-Up By: 04/25/20 Additional Comments F/U for TF tolerance
[2020-04-21] MEDS: LIDOCAINE 5% 1 EACH PATCH TD SCH (11:42)
[2020-04-21] MEDS: ACETAMINOPHEN 325 MG TAB PO PRN ×2 (11:43→21:32)
--- NOTE | 2020-04-21 12:51 | Progress Note ---
Assessment and Plan Patient sleeping at this time.. Patient is in assist control mechanical ventilation, rate 10, Tidal volume 400, FIO2 30%, PEEP 6 and O2 saturation running 99%. Recommend Continue spontaneous breathing trials as tolerated.Patient afebrile and has leukocytosis. Chest xray done 04/15/20 reported mild basilar airspace opacities which likely represent atelectasis but could represent an evolving pneumonia. If patient running fever, recommend to place hin on antibiotics like zosyn. I spent critical care time of 32 minutes, review the chart, examining the patient,Review chest xray, labs, talking to the nursing staff and respiratory therapist and work out plan of tratment in this critically ill patient. - Patient Problems (1) Acute on chronic respiratory failure with hypoxia and hypercapnia Current Visit: Yes Status: Acute Plan to address problem: Patient is on assist control mechanical ventilation, Rate 10, Tidal volume 400, FIO2 30%, PEEP 6. Albuterol inhaler 2 puffs po qid. Continue S/C Lovenox. Continue prevacid. Recommend to continue spontaneous breathing trials. (2) Bleeding from wound Current Visit: Yes Status: Acute Plan to address problem: Management primary care , surgery and wound care. (3) Elevated d-dimer Current Visit: Yes Status: Acute Plan to address problem: Patients venous doppler studies of legs, CTA chest reported Negative for VTE. Patient is on S/C Lovenox 40 mg qd. (4) Elevated troponin Current Visit: Yes Status: Acute Plan to address problem: Management as per primary care and cardiology (5) NSTEMI (non-ST elevated myocardial infarction) Current Visit: Yes Status: Acute Plan to address problem: Management as per cardiology. (6) Pneumonia Current Visit: Yes Status: Acute Qualifiers: Laterality: bilateral Plan to address problem: Patient was treated with ceftriaxone, zosyn and zithromax. Patient afebrile to day. Has leukocytosis. Chest xray done 04/15/20 reported mild basilar airspace opacities which likely represent atelectasis but could represent an evolving pneumonia. If patient running fever, recommend to place him back on antibiotics like zosyn. Subjective Date of service: 04/21/20 Principal diagnosis: Ac on Ch Hypercapnic & hypoxemic Resp Failure; Severe Sepsis; Jamar PNA; ALS Interval history: Patient sleeping at this time.. Patient is in assist control mechanical ventilation, rate 10, Tidal volume 400, FIO2 30%, PEEP 6 and O2 saturation running 99%. Recommend Continue spontaneous breathing trials as tolerated.Patient afebrile and has leukocytosis. Chest xray done 04/15/20 reported mild basilar airspace opacities which likely represent atelectasis but could represent an evolving pneumonia. If patient running fever, recommend to place hin on antibiotics like zosyn. Objective Vital Signs - 12hr 04/21/20 04/21/20 04/21/20 01:00 01:21 01:28 Temperature Pulse Rate 107 H 105 H Respiratory 12 Rate Blood Pressure 97/60 97/60 O2 Sat by Pulse 98 Oximetry O2 Sat by Pulse 98 Oximetry [ Assessment] 04/21/20 04/21/20 04/21/20 02:00 03:00 03:38 Temperature 98.6 F Pulse Rate 103 H 100 H Respiratory 11 L 12 Rate Blood Pressure 96/64 100/64 O2 Sat by Pulse 99 Oximetry O2 Sat by Pulse Oximetry [ Assessment] 04/21/20 04/21/20 04/21/20 04:00 04:47 05:00 Temperature Pulse Rate 112 H 105 H 107 H Respiratory 14 15 Rate Blood Pressure 102/69 109/76 O2 Sat by Pulse 97 Oximetry O2 Sat by Pulse Oximetry [ Assessment] 04/21/20 04/21/20 04/21/20 05:56 06:00 06:28 Temperature Pulse Rate 112 H 111 H Respiratory 20 12 Rate Blood Pressure 105/70 105/70 O2 Sat by Pulse 100 97 Oximetry O2 Sat by Pulse Oximetry [ Assessment] 04/21/20 04/21/20 04/21/20 07:00 08:00 08:08 Temperature 98.3 F Pulse Rate 108 H 104 H 110 H Respiratory 12 12 Rate Blood Pressure 98/68 106/74 106/74 O2 Sat by Pulse 100 98 100 Oximetry O2 Sat by Pulse 100 Oximetry [ Assessment] 04/21/20 04/21/20 04/21/20 09:00 09:02 10:00 Temperature Pulse Rate 105 H 104 H 98 H Respiratory 10 L 12 Rate Blood Pressure 107/72 107/72 100/72 O2 Sat by Pulse 100 Oximetry O2 Sat by Pulse Oximetry [ Assessment] 04/21/20 04/21/20 11:00 12:00 Temperature 98.5 F Pulse Rate 96 H 104 H Respiratory 10 L 18 Rate Blood Pressure 102/71 101/68 O2 Sat by Pulse 99 Oximetry O2 Sat by Pulse Oximetry [ Assessment] Constitutional: no acute distress, asleep, other (thin middle aged male with normal respiratory effort at rest on MVS) Eyes: non-icteric ENT: oropharynx moist, other (S/P Tracheostomy) Neck: supple, no lymphadenopathy, no JVD Effort: mildly labored Ascultation: Bilateral: diminished breath sounds, wheezes, rhonchi Percussion: Bilateral: not dull Cardiovascular: regular rate and rhythm, other (S1,S2, no murmurs) Gastrointestinal: normoactive bowel sounds, soft, non-tender, non-distended, other (+ distended but non tender suprapubis) Integumentary: normal, decubitus ulcer (sacral / gluteal) Extremities: no cyanosis, no edema, pulses normal, other (atrophic looking limbs) Neurologic: pupils equal and round, other (motor strength in extremities 1-2/5, awake, alert, mouths words to make needs known) Psychiatric: depressed CBC and BMP: 04/21/20 05:55 04/21/20 05:55 ABG, PT/INR, D-dimer: ABG ABG pH 7.371 (7.320-7.450) 03/08/20 12:34 POC ABG pCO2 63.1 mmHg (32.0-48.0) H 03/08/20 12:34 ABG pCO2 60.1 mm Hg 03/06/20 04:34 POC ABG pO2 90.5 mmHg (83-108) 03/08/20 12:34 ABG pO2 88.6 mm Hg (80.0-90.0) 03/06/20 04:34 POC ABG HCO3 35.7 03/08/20 12:34 ABG O2 Saturation 97.0 % (95.0-99.0) 03/06/20 04:34 PT/INR, D-dimer PT 15.6 Sec. (12.2-14.9) H 02/24/20 09:19 INR 1.21 (0.87-1.13) H 02/24/20 09:19 D-Dimer 1311.96 ng/mlDDU (0-234) H 02/24/20 09:19 Abnormal lab findings: Abnormal Labs 02/24/20 02/24/20 02/24/20 09:19 09:19 09:19 WBC 20.2 H RBC 5.05 H Hgb Hct MCV MCH RDW 15.3 H Plt Count Lymph % (Auto) [place] % (Auto) Lymph # (Auto) [place] # (Auto) Seg Neutrophils % Seg Neuts % (Manual) 86.0 H Lymphocytes % (Manual) 1.0 L Monocytes % (Manual) Basophils % (Manual) Seg Neutrophils # Seg Neutrophils # Man 17.4 H Lymphocytes # (Manual) 0.2 L Monocytes # (Manual) Eosinophils # (Manual) Basophils # (Manual) PT 15.6 H INR 1.21 H D-Dimer 1311.96 H ABG pH POC ABG pCO2 POC ABG pO2 ABG pO2 ABG HCO3 ABG O2 Saturation ABG Base Excess ABG Hemoglobin ABG Oxyhemoglobin ABG Potassium ABG Glucose Oxyhemoglobin Carboxyhemoglobin Sodium 135 L Potassium 3.2 L Chloride 92.2 L Carbon Dioxide BUN 6 L Creatinine < 0.2 L Glucose 124 H POC Glucose Calcium Ferritin Total Bilirubin 2.30 H Alkaline Phosphatase 132 H Lactate Dehydrogenase Total Creatine Kinase CK-MB (CK-2) Rel Index Troponin T 0.080 H C-Reactive Protein Total Protein Albumin 3.6 L Prealbumin LDL Cholesterol Direct 41 L Arterial Blood Glucose Arterial Blood Ionized Calcium Urine WBC (Auto) 02/24/20 02/24/20 02/24/20 09:19 09:58 10:01 WBC RBC Hgb Hct MCV MCH RDW Plt Count Lymph % (Auto) [place] % (Auto) Lymph # (Auto) [place] # (Auto) Seg Neutrophils % Seg Neuts % (Manual) Lymphocytes % (Manual) Monocytes % (Manual) Basophils % (Manual) Seg Neutrophils # Seg Neutrophils # Man Lymphocytes # (Manual) Monocytes # (Manual) Eosinophils # (Manual) Basophils # (Manual) PT INR D-Dimer ABG pH 7.176 L* POC ABG pCO2 POC ABG pO2 ABG pO2 91.2 H ABG HCO3 ABG O2 Saturation ABG Base Excess -4.6 L ABG Hemoglobin ABG Oxyhemoglobin ABG Potassium ABG Glucose Oxyhemoglobin 92.6 L Carboxyhemoglobin Sodium Potassium Chloride Carbon Dioxide BUN Creatinine Glucose POC Glucose Calcium Ferritin 1715.0 H Total Bilirubin Alkaline Phosphatase Lactate Dehydrogenase 303 H Total Creatine Kinase CK-MB (CK-2) Rel Index Troponin T C-Reactive Protein 26.10 H Total Protein Albumin Prealbumin LDL Cholesterol Direct Arterial Blood Glucose Arterial Blood Ionized Calcium Urine WBC (Auto) 02/24/20 02/24/20 02/24/20 11:52 13:45 19:35 WBC RBC Hgb Hct MCV MCH RDW Plt Count Lymph % (Auto) [place] % (Auto) Lymph # (Auto) [place] # (Auto) Seg Neutrophils % Seg Neuts % (Manual) Lymphocytes % (Manual) Monocytes % (Manual) Basophils % (Manual) Seg Neutrophils # Seg Neutrophils # Man Lymphocytes # (Manual) Monocytes # (Manual) Eosinophils # (Manual) Basophils # (Manual) PT INR D-Dimer ABG pH 7.051 L* 7.300 L POC ABG pCO2 POC ABG pO2 ABG pO2 94.7 H 75.1 L ABG HCO3 18.0 L ABG O2 Saturation 93.5 L ABG Base Excess -6.8 L -7.8 L ABG Hemoglobin 13.2 L 11.9 L ABG Oxyhemoglobin ABG Potassium ABG Glucose Oxyhemoglobin 91.0 L 92.7 L Carboxyhemoglobin Sodium Potassium Chloride Carbon Dioxide BUN Creatinine Glucose POC Glucose Calcium Ferritin Total Bilirubin Alkaline Phosphatase Lactate Dehydrogenase Total Creatine Kinase CK-MB (CK-2) Rel Index Troponin T 0.034 H D C-Reactive Protein Total Protein Albumin Prealbumin LDL Cholesterol Direct Arterial Blood Glucose Arterial Blood Ionized Calcium Urine WBC (Auto) 02/25/20 02/25/20 02/25/20 04:00 04:00 12:26 WBC 22.9 H RBC Hgb Hct MCV 83 L MCH 27 L RDW Plt Count 468 H Lymph % (Auto) [place] % (Auto) Lymph # (Auto) [place] # (Auto) Seg Neutrophils % Seg Neuts % (Manual) 89.0 H Lymphocytes % (Manual) 7.0 L Monocytes % (Manual) Basophils % (Manual) Seg Neutrophils # Seg Neutrophils # Man 20.4 H Lymphocytes # (Manual) Monocytes # (Manual) Eosinophils # (Manual) Basophils # (Manual) PT INR D-Dimer ABG pH POC ABG pCO2 POC ABG pO2 ABG pO2 ABG HCO3 ABG O2 Saturation ABG Base Excess ABG Hemoglobin ABG Oxyhemoglobin ABG Potassium 2.6 L ABG Glucose 142 H Oxyhemoglobin Carboxyhemoglobin Sodium Potassium 3.2 L Chloride Carbon Dioxide 18 L BUN Creatinine 0.2 L Glucose 114 H POC Glucose Calcium Ferritin Total Bilirubin Alkaline Phosphatase Lactate Dehydrogenase Total Creatine Kinase CK-MB (CK-2) Rel Index Troponin T C-Reactive Protein Total Protein Albumin 3.5 L Prealbumin LDL Cholesterol Direct Arterial Blood Glucose 142 H Arterial Blood Ionized Calcium Urine WBC (Auto) 02/26/20 02/26/20 02/26/20 15:58 17:00 23:43 WBC RBC Hgb Hct MCV MCH RDW Plt Count Lymph % (Auto) [place] % (Auto) Lymph # (Auto) [place] # (Auto) Seg Neutrophils % Seg Neuts % (Manual) Lymphocytes % (Manual) Monocytes % (Manual) Basophils % (Manual) Seg Neutrophils # Seg Neutrophils # Man Lymphocytes # (Manual) Monocytes # (Manual) Eosinophils # (Manual) Basophils # (Manual) PT INR D-Dimer ABG pH 7.502 H POC ABG pCO2 POC ABG pO2 213.6 H ABG pO2 ABG HCO3 ABG O2 Saturation ABG Base Excess ABG Hemoglobin ABG Oxyhemoglobin 99.2 H ABG Potassium 2.9 L ABG Glucose 160 H Oxyhemoglobin Carboxyhemoglobin 0.4 L Sodium Potassium Chloride Carbon Dioxide BUN Creatinine Glucose POC Glucose 189 H 120 H Calcium Ferritin Total Bilirubin Alkaline Phosphatase Lactate Dehydrogenase Total Creatine Kinase CK-MB (CK-2) Rel Index Troponin T C-Reactive Protein Total Protein Albumin Prealbumin LDL Cholesterol Direct Arterial Blood Glucose 160 H Arterial Blood Ionized Calcium 4.5 L Urine WBC (Auto) 02/27/20 02/27/20 02/27/20 05:00 07:04 17:45 WBC RBC Hgb Hct MCV MCH RDW Plt Count Lymph % (Auto) [place] % (Auto) Lymph # (Auto) [place] # (Auto) Seg Neutrophils % Seg Neuts % (Manual) Lymphocytes % (Manual) Monocytes % (Manual) Basophils % (Manual) Seg Neutrophils # Seg Neutrophils # Man Lymphocytes # (Manual) Monocytes # (Manual) Eosinophils # (Manual) Basophils # (Manual) PT INR D-Dimer ABG pH 7.524 H POC ABG pCO2 POC ABG pO2 ABG pO2 ABG HCO3 ABG O2 Saturation ABG Base Excess ABG Hemoglobin ABG Oxyhemoglobin ABG Potassium 3.0 L ABG Glucose 143 H Oxyhemoglobin Carboxyhemoglobin Sodium Potassium Chloride Carbon Dioxide BUN Creatinine Glucose POC Glucose 154 H 175 H Calcium Ferritin Total Bilirubin Alkaline Phosphatase Lactate Dehydrogenase Total Creatine Kinase CK-MB (CK-2) Rel Index Troponin T C-Reactive Protein Total Protein Albumin Prealbumin LDL Cholesterol Direct Arterial Blood Glucose 143 H Arterial Blood Ionized Calcium Urine WBC (Auto) 02/27/20 02/28/20 02/28/20 Unknown 00:21 04:15 WBC 18.7 H RBC Hgb Hct MCV MCH RDW Plt Count Lymph % (Auto) 8.7 L [place] % (Auto) Lymph # (Auto) [place] # (Auto) 1.2 H Seg Neutrophils % 84.6 H Seg Neuts % (Manual) Lymphocytes % (Manual) Monocytes % (Manual) Basophils % (Manual) Seg Neutrophils # 15.9 H Seg Neutrophils # Man Lymphocytes # (Manual) Monocytes # (Manual) Eosinophils # (Manual) Basophils # (Manual) PT INR D-Dimer ABG pH POC ABG pCO2 POC ABG pO2 ABG pO2 ABG HCO3 ABG O2 Saturation ABG Base Excess ABG Hemoglobin ABG Oxyhemoglobin ABG Potassium ABG Glucose Oxyhemoglobin Carboxyhemoglobin Sodium Potassium 2.9 L* Chloride Carbon Dioxide 33 H D BUN Creatinine < 0.2 L Glucose 157 H POC Glucose 134 H Calcium Ferritin Total Bilirubin Alkaline Phosphatase Lactate Dehydrogenase Total Creatine Kinase CK-MB (CK-2) Rel Index Troponin T C-Reactive Protein Total Protein Albumin Prealbumin LDL Cholesterol Direct Arterial Blood Glucose Arterial Blood Ionized Calcium Urine WBC (Auto) 02/28/20 02/28/20 02/28/20 04:15 05:16 05:39 WBC RBC Hgb Hct MCV MCH RDW Plt Count Lymph % (Auto) [place] % (Auto) Lymph # (Auto) [place] # (Auto) Seg Neutrophils % Seg Neuts % (Manual) Lymphocytes % (Manual) Monocytes % (Manual) Basophils % (Manual) Seg Neutrophils # Seg Neutrophils # Man Lymphocytes # (Manual) Monocytes # (Manual) Eosinophils # (Manual) Basophils # (Manual) PT INR D-Dimer ABG pH POC ABG pCO2 POC ABG pO2 ABG pO2 142.9 H ABG HCO3 34.1 H ABG O2 Saturation ABG Base Excess 8.3 H ABG Hemoglobin ABG Oxyhemoglobin ABG Potassium ABG Glucose Oxyhemoglobin Carboxyhemoglobin Sodium 151 H Potassium Chloride Carbon Dioxide 32 H BUN Creatinine 0.2 L Glucose 167 H POC Glucose 138 H Calcium Ferritin Total Bilirubin Alkaline Phosphatase Lactate Dehydrogenase Total Creatine Kinase CK-MB (CK-2) Rel Index Troponin T C-Reactive Protein Total Protein Albumin Prealbumin LDL Cholesterol Direct Arterial Blood Glucose Arterial Blood Ionized Calcium Urine WBC (Auto) 02/28/20 02/28/20 02/28/20 11:05 11:33 12:54 WBC RBC Hgb Hct MCV MCH RDW Plt Count Lymph % (Auto) [place] % (Auto) Lymph # (Auto) [place] # (Auto) Seg Neutrophils % Seg Neuts % (Manual) Lymphocytes % (Manual) Monocytes % (Manual) Basophils % (Manual) Seg Neutrophils # Seg Neutrophils # Man Lymphocytes # (Manual) Monocytes # (Manual) Eosinophils # (Manual) Basophils # (Manual) PT INR D-Dimer ABG pH POC ABG pCO2 POC ABG pO2 ABG pO2 ABG HCO3 ABG O2 Saturation ABG Base Excess ABG Hemoglobin ABG Oxyhemoglobin ABG Potassium ABG Glucose Oxyhemoglobin Carboxyhemoglobin Sodium Potassium Chloride Carbon Dioxide BUN Creatinine Glucose POC Glucose 160 H Calcium Ferritin Total Bilirubin Alkaline Phosphatase Lactate Dehydrogenase Total Creatine Kinase CK-MB (CK-2) Rel Index Troponin T C-Reactive Protein 4.70 H Total Protein Albumin Prealbumin 0.090 L LDL Cholesterol Direct Arterial Blood Glucose Arterial Blood Ionized Calcium Urine WBC (Auto) 02/28/20 02/29/20 02/29/20 17:34 00:44 04:05 WBC 19.6 H RBC Hgb Hct MCV MCH 27 L RDW 15.4 H Plt Count Lymph % (Auto) [place] % (Auto) Lymph # (Auto) [place] # (Auto) Seg Neutrophils % Seg Neuts % (Manual) 86.0 H Lymphocytes % (Manual) 7.0 L Monocytes % (Manual) Basophils % (Manual) Seg Neutrophils # Seg Neutrophils # Man 16.9 H Lymphocytes # (Manual) Monocytes # (Manual) 1.2 H Eosinophils # (Manual) Basophils # (Manual) PT INR D-Dimer ABG pH POC ABG pCO2 POC ABG pO2 ABG pO2 ABG HCO3 ABG O2 Saturation ABG Base Excess ABG Hemoglobin ABG Oxyhemoglobin ABG Potassium ABG Glucose Oxyhemoglobin Carboxyhemoglobin Sodium Potassium Chloride Carbon Dioxide BUN Creatinine Glucose POC Glucose 136 H 156 H Calcium Ferritin Total Bilirubin Alkaline Phosphatase Lactate Dehydrogenase Total Creatine Kinase CK-MB (CK-2) Rel Index Troponin T C-Reactive Protein Total Protein Albumin Prealbumin LDL Cholesterol Direct Arterial Blood Glucose Arterial Blood Ionized Calcium Urine WBC (Auto) 02/29/20 02/29/20 02/29/20 04:05 05:14 05:33 WBC RBC Hgb Hct MCV MCH RDW Plt Count Lymph % (Auto) [place] % (Auto) Lymph # (Auto) [place] # (Auto) Seg Neutrophils % Seg Neuts % (Manual) Lymphocytes % (Manual) Monocytes % (Manual) Basophils % (Manual) Seg Neutrophils # Seg Neutrophils # Man Lymphocytes # (Manual) Monocytes # (Manual) Eosinophils # (Manual) Basophils # (Manual) PT INR D-Dimer ABG pH POC ABG pCO2 54.3 H POC ABG pO2 124.8 H ABG pO2 ABG HCO3 ABG O2 Saturation ABG Base Excess ABG Hemoglobin ABG Oxyhemoglobin ABG Potassium ABG Glucose 185 H Oxyhemoglobin Carboxyhemoglobin Sodium 148 H Potassium Chloride Carbon Dioxide 33 H BUN Creatinine < 0.2 L Glucose 173 H POC Glucose 152 H Calcium Ferritin Total Bilirubin Alkaline Phosphatase Lactate Dehydrogenase Total Creatine Kinase CK-MB (CK-2) Rel Index Troponin T C-Reactive Protein Total Protein Albumin Prealbumin LDL Cholesterol Direct Arterial Blood Glucose 185 H Arterial Blood Ionized Calcium Urine WBC (Auto) 03/01/20 03/01/20 03/01/20 00:00 03:45 04:33 WBC 23.1 H RBC Hgb Hct MCV MCH 27 L RDW 15.3 H Plt Count Lymph % (Auto) [place] % (Auto) Lymph # (Auto) [place] # (Auto) Seg Neutrophils % Seg Neuts % (Manual) 92.0 H Lymphocytes % (Manual) 6.0 L Monocytes % (Manual) Basophils % (Manual) Seg Neutrophils # Seg Neutrophils # Man 21.3 H Lymphocytes # (Manual) Monocytes # (Manual) Eosinophils # (Manual) 0.5 H Basophils # (Manual) PT INR D-Dimer ABG pH 7.492 H POC ABG pCO2 POC ABG pO2 ABG pO2 157.1 H ABG HCO3 32.3 H ABG O2 Saturation ABG Base Excess 8.1 H ABG Hemoglobin 13.2 L ABG Oxyhemoglobin ABG Potassium ABG Glucose Oxyhemoglobin Carboxyhemoglobin Sodium Potassium Chloride Carbon Dioxide BUN Creatinine Glucose POC Glucose 109 H Calcium Ferritin Total Bilirubin Alkaline Phosphatase Lactate Dehydrogenase Total Creatine Kinase CK-MB (CK-2) Rel Index Troponin T C-Reactive Protein Total Protein Albumin Prealbumin LDL Cholesterol Direct Arterial Blood Glucose Arterial Blood Ionized Calcium Urine WBC (Auto) 03/01/20 03/01/20 03/01/20 04:33 05:29 12:32 WBC RBC Hgb Hct MCV MCH RDW Plt Count Lymph % (Auto) [place] % (Auto) Lymph # (Auto) [place] # (Auto) Seg Neutrophils % Seg Neuts % (Manual) Lymphocytes % (Manual) Monocytes % (Manual) Basophils % (Manual) Seg Neutrophils # Seg Neutrophils # Man Lymphocytes # (Manual) Monocytes # (Manual) Eosinophils # (Manual) Basophils # (Manual) PT INR D-Dimer ABG pH POC ABG pCO2 POC ABG pO2 ABG pO2 ABG HCO3 ABG O2 Saturation ABG Base Excess ABG Hemoglobin ABG Oxyhemoglobin ABG Potassium ABG Glucose Oxyhemoglobin Carboxyhemoglobin Sodium 146 H Potassium Chloride Carbon Dioxide 32 H BUN Creatinine < 0.2 L Glucose 120 H POC Glucose 120 H 128 H Calcium Ferritin Total Bilirubin Alkaline Phosphatase Lactate Dehydrogenase Total Creatine Kinase CK-MB (CK-2) Rel Index Troponin T C-Reactive Protein Total Protein Albumin Prealbumin LDL Cholesterol Direct Arterial Blood Glucose Arterial Blood Ionized Calcium Urine WBC (Auto) 03/01/20 03/01/20 03/02/20 17:38 23:46 06:13 WBC RBC Hgb Hct MCV MCH RDW Plt Count Lymph % (Auto) [place] % (Auto) Lymph # (Auto) [place] # (Auto) Seg Neutrophils % Seg Neuts % (Manual) Lymphocytes % (Manual) Monocytes % (Manual) Basophils % (Manual) Seg Neutrophils # Seg Neutrophils # Man Lymphocytes # (Manual) Monocytes # (Manual) Eosinophils # (Manual) Basophils # (Manual) PT INR D-Dimer ABG pH POC ABG pCO2 POC ABG pO2 ABG pO2 ABG HCO3 ABG O2 Saturation ABG Base Excess ABG Hemoglobin ABG Oxyhemoglobin ABG Potassium ABG Glucose Oxyhemoglobin Carboxyhemoglobin Sodium Potassium Chloride Carbon Dioxide BUN Creatinine Glucose POC Glucose 114 H 121 H 120 H Calcium Ferritin Total Bilirubin Alkaline Phosphatase Lactate Dehydrogenase Total Creatine Kinase CK-MB (CK-2) Rel Index Troponin T C-Reactive Protein Total Protein Albumin Prealbumin LDL Cholesterol Direct Arterial Blood Glucose Arterial Blood Ionized Calcium Urine WBC (Auto) 03/02/20 03/02/20 03/03/20 09:47 09:47 10:21 WBC 23.6 H RBC Hgb Hct MCV MCH RDW 15.3 H Plt Count 494 H Lymph % (Auto) [place] % (Auto) Lymph # (Auto) [place] # (Auto) Seg Neutrophils % Seg Neuts % (Manual) 85.0 H Lymphocytes % (Manual) 6.0 L Monocytes % (Manual) Basophils % (Manual) Seg Neutrophils # Seg Neutrophils # Man 20.1 H Lymphocytes # (Manual) Monocytes # (Manual) 1.7 H Eosinophils # (Manual) Basophils # (Manual) PT INR D-Dimer ABG pH POC ABG pCO2 POC ABG pO2 ABG pO2 ABG HCO3 ABG O2 Saturation ABG Base Excess ABG Hemoglobin ABG Oxyhemoglobin ABG Potassium 3.3 L ABG Glucose 158 H Oxyhemoglobin Carboxyhemoglobin Sodium Potassium Chloride Carbon Dioxide BUN Creatinine < 0.2 L Glucose 177 H POC Glucose Calcium Ferritin Total Bilirubin Alkaline Phosphatase Lactate Dehydrogenase Total Creatine Kinase CK-MB (CK-2) Rel Index Troponin T C-Reactive Protein Total Protein Albumin Prealbumin LDL Cholesterol Direct Arterial Blood Glucose 158 H Arterial Blood Ionized Calcium Urine WBC (Auto) 03/03/20 03/04/20 03/04/20 21:30 00:00 12:23 WBC RBC Hgb Hct MCV MCH RDW Plt Count Lymph % (Auto) [place] % (Auto) Lymph # (Auto) [place] # (Auto) Seg Neutrophils % Seg Neuts % (Manual) Lymphocytes % (Manual) Monocytes % (Manual) Basophils % (Manual) Seg Neutrophils # Seg Neutrophils # Man Lymphocytes # (Manual) Monocytes # (Manual) Eosinophils # (Manual) Basophils # (Manual) PT INR D-Dimer ABG pH 7.328 L POC ABG pCO2 POC ABG pO2 ABG pO2 68.4 L ABG HCO3 35.0 H ABG O2 Saturation 93.9 L ABG Base Excess 6.8 H ABG Hemoglobin 12.7 L ABG Oxyhemoglobin ABG Potassium ABG Glucose Oxyhemoglobin 91.9 L Carboxyhemoglobin Sodium Potassium Chloride Carbon Dioxide BUN Creatinine Glucose POC Glucose 187 H 163 H Calcium Ferritin Total Bilirubin Alkaline Phosphatase Lactate Dehydrogenase Total Creatine Kinase CK-MB (CK-2) Rel Index Troponin T C-Reactive Protein Total Protein Albumin Prealbumin LDL Cholesterol Direct Arterial Blood Glucose Arterial Blood Ionized Calcium Urine WBC (Auto) 03/04/20 03/04/20 03/05/20 18:15 21:30 06:02 WBC RBC Hgb Hct MCV MCH RDW Plt Count Lymph % (Auto) [place] % (Auto) Lymph # (Auto) [place] # (Auto) Seg Neutrophils % Seg Neuts % (Manual) Lymphocytes % (Manual) Monocytes % (Manual) Basophils % (Manual) Seg Neutrophils # Seg Neutrophils # Man Lymphocytes # (Manual) Monocytes # (Manual) Eosinophils # (Manual) Basophils # (Manual) PT INR D-Dimer ABG pH 7.297 L POC ABG pCO2 POC ABG pO2 ABG pO2 ABG HCO3 41.0 H ABG O2 Saturation ABG Base Excess 11.0 H ABG Hemoglobin 13.1 L ABG Oxyhemoglobin ABG Potassium ABG Glucose Oxyhemoglobin 94.5 L Carboxyhemoglobin Sodium Potassium Chloride Carbon Dioxide BUN Creatinine Glucose POC Glucose 192 H 127 H Calcium Ferritin Total Bilirubin Alkaline Phosphatase Lactate Dehydrogenase Total Creatine Kinase CK-MB (CK-2) Rel Index Troponin T C-Reactive Protein Total Protein Albumin Prealbumin LDL Cholesterol Direct Arterial Blood Glucose Arterial Blood Ionized Calcium Urine WBC (Auto) 03/05/20 03/05/20 03/06/20 12:09 16:42 00:24 WBC RBC Hgb Hct MCV MCH RDW Plt Count Lymph % (Auto) [place] % (Auto) Lymph # (Auto) [place] # (Auto) Seg Neutrophils % Seg Neuts % (Manual) Lymphocytes % (Manual) Monocytes % (Manual) Basophils % (Manual) Seg Neutrophils # Seg Neutrophils # Man Lymphocytes # (Manual) Monocytes # (Manual) Eosinophils # (Manual) Basophils # (Manual) PT INR D-Dimer ABG pH POC ABG pCO2 POC ABG pO2 ABG pO2 ABG HCO3 ABG O2 Saturation ABG Base Excess ABG Hemoglobin ABG Oxyhemoglobin ABG Potassium ABG Glucose Oxyhemoglobin Carboxyhemoglobin Sodium Potassium Chloride Carbon Dioxide BUN Creatinine Glucose POC Glucose 147 H 114 H 134 H Calcium Ferritin Total Bilirubin Alkaline Phosphatase Lactate Dehydrogenase Total Creatine Kinase CK-MB (CK-2) Rel Index Troponin T C-Reactive Protein Total Protein Albumin Prealbumin LDL Cholesterol Direct Arterial Blood Glucose Arterial Blood Ionized Calcium Urine WBC (Auto) 03/06/20 03/06/20 03/06/20 04:34 05:53 06:08 WBC 25.4 H RBC Hgb 10.5 L Hct 32.7 L MCV MCH 27 L RDW 15.3 H Plt Count 634 H Lymph % (Auto) [place] % (Auto) Lymph # (Auto) [place] # (Auto) Seg Neutrophils % Seg Neuts % (Manual) 88.0 H Lymphocytes % (Manual) 2.0 L Monocytes % (Manual) 8.0 H Basophils % (Manual) Seg Neutrophils # Seg Neutrophils # Man 22.4 H Lymphocytes # (Manual) 0.5 L Monocytes # (Manual) 2.0 H Eosinophils # (Manual) Basophils # (Manual) PT INR D-Dimer ABG pH POC ABG pCO2 POC ABG pO2 ABG pO2 ABG HCO3 37.9 H ABG O2 Saturation ABG Base Excess 11.4 H ABG Hemoglobin 10.6 L ABG Oxyhemoglobin ABG Potassium ABG Glucose Oxyhemoglobin 94.7 L Carboxyhemoglobin Sodium Potassium Chloride Carbon Dioxide BUN Creatinine Glucose POC Glucose 135 H Calcium Ferritin Total Bilirubin Alkaline Phosphatase Lactate Dehydrogenase Total Creatine Kinase CK-MB (CK-2) Rel Index Troponin T C-Reactive Protein Total Protein Albumin Prealbumin LDL Cholesterol Direct Arterial Blood Glucose Arterial Blood Ionized Calcium Urine WBC (Auto) 03/06/20 03/06/20 03/06/20 06:08 12:19 19:10 WBC RBC Hgb Hct MCV MCH RDW Plt Count Lymph % (Auto) [place] % (Auto) Lymph # (Auto) [place] # (Auto) Seg Neutrophils % Seg Neuts % (Manual) Lymphocytes % (Manual) Monocytes % (Manual) Basophils % (Manual) Seg Neutrophils # Seg Neutrophils # Man Lymphocytes # (Manual) Monocytes # (Manual) Eosinophils # (Manual) Basophils # (Manual) PT INR D-Dimer ABG pH POC ABG pCO2 POC ABG pO2 ABG pO2 ABG HCO3 ABG O2 Saturation ABG Base Excess ABG Hemoglobin ABG Oxyhemoglobin ABG Potassium ABG Glucose Oxyhemoglobin Carboxyhemoglobin Sodium 150 H D Potassium Chloride Carbon Dioxide 39 H D BUN 23 H Creatinine < 0.2 L Glucose 144 H POC Glucose 169 H 152 H Calcium Ferritin Total Bilirubin Alkaline Phosphatase Lactate Dehydrogenase Total Creatine Kinase CK-MB (CK-2) Rel Index Troponin T C-Reactive Protein Total Protein Albumin 3.3 L Prealbumin LDL Cholesterol Direct Arterial Blood Glucose Arterial Blood Ionized Calcium Urine WBC (Auto) 03/06/20 03/07/20 03/07/20 23:58 04:25 04:25 WBC 22.1 H RBC Hgb 10.9 L Hct 32.9 L MCV MCH RDW 15.5 H Plt Count 739 H Lymph % (Auto) 7.8 L [place] % (Auto) Lymph # (Auto) [place] # (Auto) 1.3 H Seg Neutrophils % 85.5 H Seg Neuts % (Manual) Lymphocytes % (Manual) Monocytes % (Manual) Basophils % (Manual) Seg Neutrophils # 18.9 H Seg Neutrophils # Man Lymphocytes # (Manual) Monocytes # (Manual) Eosinophils # (Manual) Basophils # (Manual) PT INR D-Dimer ABG pH POC ABG pCO2 POC ABG pO2 ABG pO2 ABG HCO3 ABG O2 Saturation ABG Base Excess ABG Hemoglobin ABG Oxyhemoglobin ABG Potassium ABG Glucose Oxyhemoglobin Carboxyhemoglobin Sodium 146 H Potassium Chloride Carbon Dioxide 37 H BUN Creatinine < 0.2 L Glucose 118 H POC Glucose 111 H Calcium Ferritin Total Bilirubin Alkaline Phosphatase Lactate Dehydrogenase Total Creatine Kinase CK-MB (CK-2) Rel Index Troponin T C-Reactive Protein Total Protein Albumin 3.7 L Prealbumin LDL Cholesterol Direct Arterial Blood Glucose Arterial Blood Ionized Calcium Urine WBC (Auto) 03/07/20 03/07/20 03/07/20 05:20 17:45 23:32 WBC RBC Hgb Hct MCV MCH RDW Plt Count Lymph % (Auto) [place] % (Auto) Lymph # (Auto) [place] # (Auto) Seg Neutrophils % Seg Neuts % (Manual) Lymphocytes % (Manual) Monocytes % (Manual) Basophils % (Manual) Seg Neutrophils # Seg Neutrophils # Man Lymphocytes # (Manual) Monocytes # (Manual) Eosinophils # (Manual) Basophils # (Manual) PT INR D-Dimer ABG pH POC ABG pCO2 POC ABG pO2 ABG pO2 ABG HCO3 ABG O2 Saturation ABG Base Excess ABG Hemoglobin ABG Oxyhemoglobin ABG Potassium ABG Glucose Oxyhemoglobin Carboxyhemoglobin Sodium Potassium Chloride Carbon Dioxide BUN Creatinine Glucose POC Glucose 113 H 124 H 210 H Calcium Ferritin Total Bilirubin Alkaline Phosphatase Lactate Dehydrogenase Total Creatine Kinase CK-MB (CK-2) Rel Index Troponin T C-Reactive Protein Total Protein Albumin Prealbumin LDL Cholesterol Direct Arterial Blood Glucose Arterial Blood Ionized Calcium Urine WBC (Auto) 03/08/20 03/08/20 03/08/20 05:35 06:43 06:43 WBC 28.9 H RBC 3.53 L Hgb 9.7 L Hct 30.3 L MCV MCH RDW 15.6 H Plt Count 578 H Lymph % (Auto) [place] % (Auto) Lymph # (Auto) [place] # (Auto) Seg Neutrophils % Seg Neuts % (Manual) 93.0 H Lymphocytes % (Manual) 4.0 L Monocytes % (Manual) Basophils % (Manual) Seg Neutrophils # Seg Neutrophils # Man 26.9 H Lymphocytes # (Manual) Monocytes # (Manual) Eosinophils # (Manual) Basophils # (Manual) PT INR D-Dimer ABG pH POC ABG pCO2 POC ABG pO2 ABG pO2 ABG HCO3 ABG O2 Saturation ABG Base Excess ABG Hemoglobin ABG Oxyhemoglobin ABG Potassium ABG Glucose Oxyhemoglobin Carboxyhemoglobin Sodium 146 H Potassium Chloride Carbon Dioxide 35 H BUN 34 H Creatinine 0.3 L D Glucose 125 H POC Glucose 147 H Calcium Ferritin Total Bilirubin Alkaline Phosphatase Lactate Dehydrogenase Total Creatine Kinase CK-MB (CK-2) Rel Index Troponin T C-Reactive Protein Total Protein 5.9 L Albumin 3.2 L Prealbumin LDL Cholesterol Direct Arterial Blood Glucose Arterial Blood Ionized Calcium Urine WBC (Auto) 03/08/20 03/08/20 03/08/20 08:57 11:14 12:34 WBC RBC Hgb Hct MCV MCH RDW Plt Count Lymph % (Auto) [place] % (Auto) Lymph # (Auto) [place] # (Auto) Seg Neutrophils % Seg Neuts % (Manual) Lymphocytes % (Manual) Monocytes % (Manual) Basophils % (Manual) Seg Neutrophils # Seg Neutrophils # Man Lymphocytes # (Manual) Monocytes # (Manual) Eosinophils # (Manual) Basophils # (Manual) PT INR D-Dimer ABG pH POC ABG pCO2 63.1 H POC ABG pO2 ABG pO2 ABG HCO3 ABG O2 Saturation ABG Base Excess ABG Hemoglobin 10.9 L ABG Oxyhemoglobin ABG Potassium ABG Glucose 176 H Oxyhemoglobin Carboxyhemoglobin Sodium Potassium Chloride Carbon Dioxide BUN Creatinine Glucose POC Glucose 171 H Calcium Ferritin Total Bilirubin Alkaline Phosphatase Lactate Dehydrogenase Total Creatine Kinase CK-MB (CK-2) Rel Index Troponin T C-Reactive Protein Total Protein Albumin Prealbumin LDL Cholesterol Direct Arterial Blood Glucose 176 H Arterial Blood Ionized Calcium 4.5 L Urine WBC (Auto) 10.0 H 03/08/20 03/08/20 03/09/20 18:02 23:43 05:49 WBC RBC Hgb Hct MCV MCH RDW Plt Count Lymph % (Auto) [place] % (Auto) Lymph # (Auto) [place] # (Auto) Seg Neutrophils % Seg Neuts % (Manual) Lymphocytes % (Manual) Monocytes % (Manual) Basophils % (Manual) Seg Neutrophils # Seg Neutrophils # Man Lymphocytes # (Manual) Monocytes # (Manual) Eosinophils # (Manual) Basophils # (Manual) PT INR D-Dimer ABG pH POC ABG pCO2 POC ABG pO2 ABG pO2 ABG HCO3 ABG O2 Saturation ABG Base Excess ABG Hemoglobin ABG Oxyhemoglobin ABG Potassium ABG Glucose Oxyhemoglobin Carboxyhemoglobin Sodium Potassium Chloride Carbon Dioxide BUN Creatinine Glucose POC Glucose 157 H 134 H 163 H Calcium Ferritin Total Bilirubin Alkaline Phosphatase Lactate Dehydrogenase Total Creatine Kinase CK-MB (CK-2) Rel Index Troponin T C-Reactive Protein Total Protein Albumin Prealbumin LDL Cholesterol Direct Arterial Blood Glucose Arterial Blood Ionized Calcium Urine WBC (Auto) 03/09/20 03/09/20 03/09/20 08:35 08:35 12:11 WBC 23.4 H RBC 3.36 L Hgb 9.3 L Hct 28.8 L MCV MCH RDW 15.9 H Plt Count 521 H Lymph % (Auto) [place] % (Auto) Lymph # (Auto) [place] # (Auto) Seg Neutrophils % Seg Neuts % (Manual) 87.0 H Lymphocytes % (Manual) 4.0 L Monocytes % (Manual) 9.0 H Basophils % (Manual) Seg Neutrophils # Seg Neutrophils # Man 20.4 H Lymphocytes # (Manual) 0.9 L Monocytes # (Manual) 2.1 H Eosinophils # (Manual) Basophils # (Manual) PT INR D-Dimer ABG pH POC ABG pCO2 POC ABG pO2 ABG pO2 ABG HCO3 ABG O2 Saturation ABG Base Excess ABG Hemoglobin ABG Oxyhemoglobin ABG Potassium ABG Glucose Oxyhemoglobin Carboxyhemoglobin Sodium 147 H Potassium Chloride Carbon Dioxide 37 H BUN 63 H Creatinine Glucose 154 H POC Glucose 128 H Calcium Ferritin Total Bilirubin Alkaline Phosphatase Lactate Dehydrogenase Total Creatine Kinase CK-MB (CK-2) Rel Index Troponin T C-Reactive Protein Total Protein Albumin Prealbumin LDL Cholesterol Direct Arterial Blood Glucose Arterial Blood Ionized Calcium Urine WBC (Auto) 03/09/20 03/10/20 03/10/20 17:51 00:25 05:41 WBC RBC Hgb Hct MCV MCH RDW Plt Count Lymph % (Auto) [place] % (Auto) Lymph # (Auto) [place] # (Auto) Seg Neutrophils % Seg Neuts % (Manual) Lymphocytes % (Manual) Monocytes % (Manual) Basophils % (Manual) Seg Neutrophils # Seg Neutrophils # Man Lymphocytes # (Manual) Monocytes # (Manual) Eosinophils # (Manual) Basophils # (Manual) PT INR D-Dimer ABG pH POC ABG pCO2 POC ABG pO2 ABG pO2 ABG HCO3 ABG O2 Saturation ABG Base Excess ABG Hemoglobin ABG Oxyhemoglobin ABG Potassium ABG Glucose Oxyhemoglobin Carboxyhemoglobin Sodium Potassium Chloride Carbon Dioxide BUN Creatinine Glucose POC Glucose 127 H 128 H 153 H Calcium Ferritin Total Bilirubin Alkaline Phosphatase Lactate Dehydrogenase Total Creatine Kinase CK-MB (CK-2) Rel Index Troponin T C-Reactive Protein Total Protein Albumin Prealbumin LDL Cholesterol Direct Arterial Blood Glucose Arterial Blood Ionized Calcium Urine WBC (Auto) 03/10/20 03/10/20 03/10/20 06:14 06:14 12:02 WBC 18.3 H RBC 3.45 L Hgb 9.5 L Hct 29.5 L MCV MCH RDW 16.1 H Plt Count 494 H Lymph % (Auto) [place] % (Auto) Lymph # (Auto) [place] # (Auto) Seg Neutrophils % Seg Neuts % (Manual) 95.0 H Lymphocytes % (Manual) 1.0 L Monocytes % (Manual) Basophils % (Manual) Seg Neutrophils # Seg Neutrophils # Man 17.4 H Lymphocytes # (Manual) 0.2 L Monocytes # (Manual) Eosinophils # (Manual) Basophils # (Manual) PT INR D-Dimer ABG pH POC ABG pCO2 POC ABG pO2 ABG pO2 ABG HCO3 ABG O2 Saturation ABG Base Excess ABG Hemoglobin ABG Oxyhemoglobin ABG Potassium ABG Glucose Oxyhemoglobin Carboxyhemoglobin Sodium 149 H Potassium Chloride Carbon Dioxide 35 H BUN 34 H Creatinine 0.2 L D Glucose 177 H POC Glucose 151 H Calcium Ferritin Total Bilirubin Alkaline Phosphatase Lactate Dehydrogenase Total Creatine Kinase CK-MB (CK-2) Rel Index Troponin T C-Reactive Protein Total Protein Albumin Prealbumin LDL Cholesterol Direct Arterial Blood Glucose Arterial Blood Ionized Calcium Urine WBC (Auto) 03/10/20 03/10/20 03/11/20 17:41 23:53 05:02 WBC RBC Hgb Hct MCV MCH RDW Plt Count Lymph % (Auto) [place] % (Auto) Lymph # (Auto) [place] # (Auto) Seg Neutrophils % Seg Neuts % (Manual) Lymphocytes % (Manual) Monocytes % (Manual) Basophils % (Manual) Seg Neutrophils # Seg Neutrophils # Man Lymphocytes # (Manual) Monocytes # (Manual) Eosinophils # (Manual) Basophils # (Manual) PT INR D-Dimer ABG pH POC ABG pCO2 POC ABG pO2 ABG pO2 ABG HCO3 ABG O2 Saturation ABG Base Excess ABG Hemoglobin ABG Oxyhemoglobin ABG Potassium ABG Glucose Oxyhemoglobin Carboxyhemoglobin Sodium Potassium Chloride Carbon Dioxide BUN Creatinine Glucose POC Glucose 168 H 142 H 146 H Calcium Ferritin Total Bilirubin Alkaline Phosphatase Lactate Dehydrogenase Total Creatine Kinase CK-MB (CK-2) Rel Index Troponin T C-Reactive Protein Total Protein Albumin Prealbumin LDL Cholesterol Direct Arterial Blood Glucose Arterial Blood Ionized Calcium Urine WBC (Auto) 03/11/20 03/11/20 03/11/20 11:30 14:01 14:01 WBC 19.7 H RBC 3.04 L Hgb 8.7 L Hct 25.8 L MCV MCH RDW 15.6 H Plt Count Lymph % (Auto) [place] % (Auto) Lymph # (Auto) [place] # (Auto) Seg Neutrophils % Seg Neuts % (Manual) Lymphocytes % (Manual) Monocytes % (Manual) Basophils % (Manual) Seg Neutrophils # Seg Neutrophils # Man Lymphocytes # (Manual) Monocytes # (Manual) Eosinophils # (Manual) Basophils # (Manual) PT INR D-Dimer ABG pH POC ABG pCO2 POC ABG pO2 ABG pO2 ABG HCO3 ABG O2 Saturation ABG Base Excess ABG Hemoglobin ABG Oxyhemoglobin ABG Potassium ABG Glucose Oxyhemoglobin Carboxyhemoglobin Sodium 151 H Potassium Chloride Carbon Dioxide 37 H BUN Creatinine < 0.2 L Glucose 171 H POC Glucose 248 H Calcium Ferritin Total Bilirubin Alkaline Phosphatase Lactate Dehydrogenase Total Creatine Kinase CK-MB (CK-2) Rel Index Troponin T C-Reactive Protein Total Protein Albumin Prealbumin LDL Cholesterol Direct Arterial Blood Glucose Arterial Blood Ionized Calcium Urine WBC (Auto) 03/11/20 03/11/20 03/12/20 17:09 23:52 04:39 WBC 19.9 H RBC 3.16 L Hgb 8.9 L Hct 27.5 L MCV MCH RDW 15.7 H Plt Count Lymph % (Auto) 6.8 L [place] % (Auto) Lymph # (Auto) [place] # (Auto) 1.2 H Seg Neutrophils % 86.0 H Seg Neuts % (Manual) Lymphocytes % (Manual) Monocytes % (Manual) Basophils % (Manual) Seg Neutrophils # 17.1 H Seg Neutrophils # Man Lymphocytes # (Manual) Monocytes # (Manual) Eosinophils # (Manual) Basophils # (Manual) PT INR D-Dimer ABG pH POC ABG pCO2 POC ABG pO2 ABG pO2 ABG HCO3 ABG O2 Saturation ABG Base Excess ABG Hemoglobin ABG Oxyhemoglobin ABG Potassium ABG Glucose Oxyhemoglobin Carboxyhemoglobin Sodium Potassium Chloride Carbon Dioxide BUN Creatinine Glucose POC Glucose 124 H 131 H Calcium Ferritin Total Bilirubin Alkaline Phosphatase Lactate Dehydrogenase Total Creatine Kinase CK-MB (CK-2) Rel Index Troponin T C-Reactive Protein Total Protein Albumin Prealbumin LDL Cholesterol Direct Arterial Blood Glucose Arterial Blood Ionized Calcium Urine WBC (Auto) 03/12/20 03/12/20 03/12/20 04:39 05:28 11:34 WBC RBC Hgb Hct MCV MCH RDW Plt Count Lymph % (Auto) [place] % (Auto) Lymph # (Auto) [place] # (Auto) Seg Neutrophils % Seg Neuts % (Manual) Lymphocytes % (Manual) Monocytes % (Manual) Basophils % (Manual) Seg Neutrophils # Seg Neutrophils # Man Lymphocytes # (Manual) Monocytes # (Manual) Eosinophils # (Manual) Basophils # (Manual) PT INR D-Dimer ABG pH POC ABG pCO2 POC ABG pO2 ABG pO2 ABG HCO3 ABG O2 Saturation ABG Base Excess ABG Hemoglobin ABG Oxyhemoglobin ABG Potassium ABG Glucose Oxyhemoglobin Carboxyhemoglobin Sodium 147 H Potassium Chloride Carbon Dioxide 40 H BUN Creatinine < 0.2 L Glucose 175 H POC Glucose 167 H 144 H Calcium Ferritin Total Bilirubin Alkaline Phosphatase Lactate Dehydrogenase Total Creatine Kinase CK-MB (CK-2) Rel Index Troponin T C-Reactive Protein Total Protein Albumin Prealbumin LDL Cholesterol Direct Arterial Blood Glucose Arterial Blood Ionized Calcium Urine WBC (Auto) 03/12/20 03/12/20 03/13/20 17:32 23:57 05:57 WBC RBC Hgb Hct MCV MCH RDW Plt Count Lymph % (Auto) [place] % (Auto) Lymph # (Auto) [place] # (Auto) Seg Neutrophils % Seg Neuts % (Manual) Lymphocytes % (Manual) Monocytes % (Manual) Basophils % (Manual) Seg Neutrophils # Seg Neutrophils # Man Lymphocytes # (Manual) Monocytes # (Manual) Eosinophils # (Manual) Basophils # (Manual) PT INR D-Dimer ABG pH POC ABG pCO2 POC ABG pO2 ABG pO2 ABG HCO3 ABG O2 Saturation ABG Base Excess ABG Hemoglobin ABG Oxyhemoglobin ABG Potassium ABG Glucose Oxyhemoglobin Carboxyhemoglobin Sodium Potassium Chloride Carbon Dioxide BUN Creatinine Glucose POC Glucose 141 H 137 H 161 H Calcium Ferritin Total Bilirubin Alkaline Phosphatase Lactate Dehydrogenase Total Creatine Kinase CK-MB (CK-2) Rel Index Troponin T C-Reactive Protein Total Protein Albumin Prealbumin LDL Cholesterol Direct Arterial Blood Glucose Arterial Blood Ionized Calcium Urine WBC (Auto) 03/13/20 03/13/20 03/13/20 12:28 14:14 18:39 WBC RBC Hgb Hct MCV MCH RDW Plt Count Lymph % (Auto) [place] % (Auto) Lymph # (Auto) [place] # (Auto) Seg Neutrophils % Seg Neuts % (Manual) Lymphocytes % (Manual) Monocytes % (Manual) Basophils % (Manual) Seg Neutrophils # Seg Neutrophils # Man Lymphocytes # (Manual) Monocytes # (Manual) Eosinophils # (Manual) Basophils # (Manual) PT INR D-Dimer ABG pH POC ABG pCO2 POC ABG pO2 ABG pO2 ABG HCO3 ABG O2 Saturation ABG Base Excess ABG Hemoglobin ABG Oxyhemoglobin ABG Potassium ABG Glucose Oxyhemoglobin Carboxyhemoglobin Sodium Potassium Chloride Carbon Dioxide 39 H BUN Creatinine < 0.2 L Glucose 129 H POC Glucose 130 H 125 H Calcium Ferritin Total Bilirubin Alkaline Phosphatase Lactate Dehydrogenase Total Creatine Kinase CK-MB (CK-2) Rel Index Troponin T C-Reactive Protein Total Protein Albumin Prealbumin LDL Cholesterol Direct Arterial Blood Glucose Arterial Blood Ionized Calcium Urine WBC (Auto) 03/13/20 03/14/20 03/14/20 23:33 05:24 08:07 WBC 16.8 H RBC 2.81 L Hgb 7.9 L Hct 23.9 L MCV MCH RDW 15.9 H Plt Count Lymph % (Auto) [place] % (Auto) Lymph # (Auto) [place] # (Auto) Seg Neutrophils % Seg Neuts % (Manual) 84.0 H Lymphocytes % (Manual) 10.0 L Monocytes % (Manual) Basophils % (Manual) Seg Neutrophils # Seg Neutrophils # Man 14.1 H Lymphocytes # (Manual) Monocytes # (Manual) Eosinophils # (Manual) Basophils # (Manual) PT INR D-Dimer ABG pH POC ABG pCO2 POC ABG pO2 ABG pO2 ABG HCO3 ABG O2 Saturation ABG Base Excess ABG Hemoglobin ABG Oxyhemoglobin ABG Potassium ABG Glucose Oxyhemoglobin Carboxyhemoglobin Sodium Potassium Chloride Carbon Dioxide BUN Creatinine Glucose POC Glucose 146 H 125 H Calcium Ferritin Total Bilirubin Alkaline Phosphatase Lactate Dehydrogenase Total Creatine Kinase CK-MB (CK-2) Rel Index Troponin T C-Reactive Protein Total Protein Albumin Prealbumin LDL Cholesterol Direct Arterial Blood Glucose Arterial Blood Ionized Calcium Urine WBC (Auto) 03/14/20 03/14/20 03/14/20 08:07 12:21 18:26 WBC RBC Hgb Hct MCV MCH RDW Plt Count Lymph % (Auto) [place] % (Auto) Lymph # (Auto) [place] # (Auto) Seg Neutrophils % Seg Neuts % (Manual) Lymphocytes % (Manual) Monocytes % (Manual) Basophils % (Manual) Seg Neutrophils # Seg Neutrophils # Man Lymphocytes # (Manual) Monocytes # (Manual) Eosinophils # (Manual) Basophils # (Manual) PT INR D-Dimer ABG pH POC ABG pCO2 POC ABG pO2 ABG pO2 ABG HCO3 ABG O2 Saturation ABG Base Excess ABG Hemoglobin ABG Oxyhemoglobin ABG Potassium ABG Glucose Oxyhemoglobin Carboxyhemoglobin Sodium Potassium Chloride 97.0 L Carbon Dioxide 37 H BUN Creatinine < 0.2 L Glucose 129 H POC Glucose 109 H 142 H Calcium 8.3 L Ferritin Total Bilirubin Alkaline Phosphatase Lactate Dehydrogenase Total Creatine Kinase CK-MB (CK-2) Rel Index Troponin T C-Reactive Protein Total Protein Albumin Prealbumin LDL Cholesterol Direct Arterial Blood Glucose Arterial Blood Ionized Calcium Urine WBC (Auto) 03/14/20 03/15/20 03/15/20 23:57 05:46 08:06 WBC 19.7 H RBC 3.29 L Hgb 9.1 L Hct 28.0 L MCV MCH RDW 15.9 H Plt Count Lymph % (Auto) [place] % (Auto) Lymph # (Auto) [place] # (Auto) Seg Neutrophils % Seg Neuts % (Manual) Lymphocytes % (Manual) Monocytes % (Manual) Basophils % (Manual) Seg Neutrophils # Seg Neutrophils # Man Lymphocytes # (Manual) Monocytes # (Manual) Eosinophils # (Manual) Basophils # (Manual) PT INR D-Dimer ABG pH POC ABG pCO2 POC ABG pO2 ABG pO2 ABG HCO3 ABG O2 Saturation ABG Base Excess ABG Hemoglobin ABG Oxyhemoglobin ABG Potassium ABG Glucose Oxyhemoglobin Carboxyhemoglobin Sodium Potassium Chloride Carbon Dioxide BUN Creatinine Glucose POC Glucose 157 H 118 H Calcium Ferritin Total Bilirubin Alkaline Phosphatase Lactate Dehydrogenase Total Creatine Kinase CK-MB (CK-2) Rel Index Troponin T C-Reactive Protein Total Protein Albumin Prealbumin LDL Cholesterol Direct Arterial Blood Glucose Arterial Blood Ionized Calcium Urine WBC (Auto) 03/15/20 03/15/20 03/15/20 08:06 12:44 18:09 WBC RBC Hgb Hct MCV MCH RDW Plt Count Lymph % (Auto) [place] % (Auto) Lymph # (Auto) [place] # (Auto) Seg Neutrophils % Seg Neuts % (Manual) Lymphocytes % (Manual) Monocytes % (Manual) Basophils % (Manual) Seg Neutrophils # Seg Neutrophils # Man Lymphocytes # (Manual) Monocytes # (Manual) Eosinophils # (Manual) Basophils # (Manual) PT INR D-Dimer ABG pH POC ABG pCO2 POC ABG pO2 ABG pO2 ABG HCO3 ABG O2 Saturation ABG Base Excess ABG Hemoglobin ABG Oxyhemoglobin ABG Potassium ABG Glucose Oxyhemoglobin Carboxyhemoglobin Sodium 136 L Potassium Chloride 93.6 L Carbon Dioxide 37 H BUN Creatinine < 0.2 L Glucose 132 H POC Glucose 151 H 164 H Calcium Ferritin Total Bilirubin Alkaline Phosphatase Lactate Dehydrogenase Total Creatine Kinase CK-MB (CK-2) Rel Index Troponin T C-Reactive Protein Total Protein Albumin Prealbumin LDL Cholesterol Direct Arterial Blood Glucose Arterial Blood Ionized Calcium Urine WBC (Auto) 03/15/20 03/16/20 03/16/20 23:26 05:39 11:58 WBC RBC Hgb Hct MCV MCH RDW Plt Count Lymph % (Auto) [place] % (Auto) Lymph # (Auto) [place] # (Auto) Seg Neutrophils % Seg Neuts % (Manual) Lymphocytes % (Manual) Monocytes % (Manual) Basophils % (Manual) Seg Neutrophils # Seg Neutrophils # Man Lymphocytes # (Manual) Monocytes # (Manual) Eosinophils # (Manual) Basophils # (Manual) PT INR D-Dimer ABG pH POC ABG pCO2 POC ABG pO2 ABG pO2 ABG HCO3 ABG O2 Saturation ABG Base Excess ABG Hemoglobin ABG Oxyhemoglobin ABG Potassium ABG Glucose Oxyhemoglobin Carboxyhemoglobin Sodium Potassium Chloride Carbon Dioxide BUN Creatinine Glucose POC Glucose 136 H 116 H 109 H Calcium Ferritin Total Bilirubin Alkaline Phosphatase Lactate Dehydrogenase Total Creatine Kinase CK-MB (CK-2) Rel Index Troponin T C-Reactive Protein Total Protein Albumin Prealbumin LDL Cholesterol Direct Arterial Blood Glucose Arterial Blood Ionized Calcium Urine WBC (Auto) 03/16/20 03/17/20 03/17/20 23:56 04:40 04:40 WBC 18.0 H RBC 3.33 L Hgb 9.5 L Hct 28.8 L MCV MCH RDW 16.4 H Plt Count 499 H Lymph % (Auto) [place] % (Auto) Lymph # (Auto) [place] # (Auto) Seg Neutrophils % Seg Neuts % (Manual) 82.0 H Lymphocytes % (Manual) 8.0 L Monocytes % (Manual) Basophils % (Manual) Seg Neutrophils # Seg Neutrophils # Man 14.8 H Lymphocytes # (Manual) Monocytes # (Manual) 1.3 H Eosinophils # (Manual) Basophils # (Manual) 0.2 H PT INR D-Dimer ABG pH POC ABG pCO2 POC ABG pO2 ABG pO2 ABG HCO3 ABG O2 Saturation ABG Base Excess ABG Hemoglobin ABG Oxyhemoglobin ABG Potassium ABG Glucose Oxyhemoglobin Carboxyhemoglobin Sodium Potassium Chloride 97.7 L Carbon Dioxide 32 H BUN Creatinine < 0.2 L Glucose 114 H POC Glucose 131 H Calcium Ferritin Total Bilirubin Alkaline Phosphatase Lactate Dehydrogenase Total Creatine Kinase CK-MB (CK-2) Rel Index Troponin T C-Reactive Protein Total Protein Albumin Prealbumin LDL Cholesterol Direct Arterial Blood Glucose Arterial Blood Ionized Calcium Urine WBC (Auto) 03/18/20 03/18/20 03/18/20 00:21 05:21 11:55 WBC RBC Hgb Hct MCV MCH RDW Plt Count Lymph % (Auto) [place] % (Auto) Lymph # (Auto) [place] # (Auto) Seg Neutrophils % Seg Neuts % (Manual) Lymphocytes % (Manual) Monocytes % (Manual) Basophils % (Manual) Seg Neutrophils # Seg Neutrophils # Man Lymphocytes # (Manual) Monocytes # (Manual) Eosinophils # (Manual) Basophils # (Manual) PT INR D-Dimer ABG pH POC ABG pCO2 POC ABG pO2 ABG pO2 ABG HCO3 ABG O2 Saturation ABG Base Excess ABG Hemoglobin ABG Oxyhemoglobin ABG Potassium ABG Glucose Oxyhemoglobin Carboxyhemoglobin Sodium Potassium Chloride Carbon Dioxide BUN Creatinine Glucose POC Glucose 124 H 138 H 119 H Calcium Ferritin Total Bilirubin Alkaline Phosphatase Lactate Dehydrogenase Total Creatine Kinase CK-MB (CK-2) Rel Index Troponin T C-Reactive Protein Total Protein Albumin Prealbumin LDL Cholesterol Direct Arterial Blood Glucose Arterial Blood Ionized Calcium Urine WBC (Auto) 03/18/20 03/18/20 03/19/20 17:03 23:58 05:24 WBC RBC Hgb Hct MCV MCH RDW Plt Count Lymph % (Auto) [place] % (Auto) Lymph # (Auto) [place] # (Auto) Seg Neutrophils % Seg Neuts % (Manual) Lymphocytes % (Manual) Monocytes % (Manual) Basophils % (Manual) Seg Neutrophils # Seg Neutrophils # Man Lymphocytes # (Manual) Monocytes # (Manual) Eosinophils # (Manual) Basophils # (Manual) PT INR D-Dimer ABG pH POC ABG pCO2 POC ABG pO2 ABG pO2 ABG HCO3 ABG O2 Saturation ABG Base Excess ABG Hemoglobin ABG Oxyhemoglobin ABG Potassium ABG Glucose Oxyhemoglobin Carboxyhemoglobin Sodium Potassium Chloride Carbon Dioxide BUN Creatinine Glucose POC Glucose 128 H 128 H 115 H Calcium Ferritin Total Bilirubin Alkaline Phosphatase Lactate Dehydrogenase Total Creatine Kinase CK-MB (CK-2) Rel Index Troponin T C-Reactive Protein Total Protein Albumin Prealbumin LDL Cholesterol Direct Arterial Blood Glucose Arterial Blood Ionized Calcium Urine WBC (Auto) 03/19/20 03/19/20 03/19/20 08:05 08:05 11:56 WBC 16.8 H RBC 3.36 L Hgb 9.4 L Hct 28.8 L MCV MCH RDW 17.4 H Plt Count 567 H Lymph % (Auto) 7.8 L [place] % (Auto) Lymph # (Auto) [place] # (Auto) 1.2 H Seg Neutrophils % 83.5 H Seg Neuts % (Manual) Lymphocytes % (Manual) Monocytes % (Manual) Basophils % (Manual) Seg Neutrophils # 14.1 H Seg Neutrophils # Man Lymphocytes # (Manual) Monocytes # (Manual) Eosinophils # (Manual) Basophils # (Manual) PT INR D-Dimer ABG pH POC ABG pCO2 POC ABG pO2 ABG pO2 ABG HCO3 ABG O2 Saturation ABG Base Excess ABG Hemoglobin ABG Oxyhemoglobin ABG Potassium ABG Glucose Oxyhemoglobin Carboxyhemoglobin Sodium Potassium Chloride Carbon Dioxide 36 H BUN Creatinine < 0.2 L Glucose 135 H POC Glucose 128 H Calcium Ferritin Total Bilirubin Alkaline Phosphatase Lactate Dehydrogenase Total Creatine Kinase CK-MB (CK-2) Rel Index Troponin T C-Reactive Protein Total Protein Albumin Prealbumin LDL Cholesterol Direct Arterial Blood Glucose Arterial Blood Ionized Calcium Urine WBC (Auto) 03/19/20 03/20/20 03/20/20 23:59 05:12 16:52 WBC RBC Hgb Hct MCV MCH RDW Plt Count Lymph % (Auto) [place] % (Auto) Lymph # (Auto) [place] # (Auto) Seg Neutrophils % Seg Neuts % (Manual) Lymphocytes % (Manual) Monocytes % (Manual) Basophils % (Manual) Seg Neutrophils # Seg Neutrophils # Man Lymphocytes # (Manual) Monocytes # (Manual) Eosinophils # (Manual) Basophils # (Manual) PT INR D-Dimer ABG pH POC ABG pCO2 POC ABG pO2 ABG pO2 ABG HCO3 ABG O2 Saturation ABG Base Excess ABG Hemoglobin ABG Oxyhemoglobin ABG Potassium ABG Glucose Oxyhemoglobin Carboxyhemoglobin Sodium Potassium Chloride Carbon Dioxide BUN Creatinine Glucose POC Glucose 120 H 131 H 124 H Calcium Ferritin Total Bilirubin Alkaline Phosphatase Lactate Dehydrogenase Total Creatine Kinase CK-MB (CK-2) Rel Index Troponin T C-Reactive Protein Total Protein Albumin Prealbumin LDL Cholesterol Direct Arterial Blood Glucose Arterial Blood Ionized Calcium Urine WBC (Auto) 03/20/20 03/21/20 03/21/20 23:35 04:50 07:35 WBC 15.2 H RBC 3.39 L Hgb 9.4 L Hct 29.4 L MCV MCH RDW 17.6 H Plt Count 518 H Lymph % (Auto) [place] % (Auto) Lymph # (Auto) [place] # (Auto) Seg Neutrophils % Seg Neuts % (Manual) 83.0 H Lymphocytes % (Manual) 10.0 L Monocytes % (Manual) Basophils % (Manual) 2.0 H Seg Neutrophils # Seg Neutrophils # Man 12.6 H Lymphocytes # (Manual) Monocytes # (Manual) Eosinophils # (Manual) Basophils # (Manual) 0.3 H PT INR D-Dimer ABG pH POC ABG pCO2 POC ABG pO2 ABG pO2 ABG HCO3 ABG O2 Saturation ABG Base Excess ABG Hemoglobin ABG Oxyhemoglobin ABG Potassium ABG Glucose Oxyhemoglobin Carboxyhemoglobin Sodium Potassium Chloride Carbon Dioxide BUN Creatinine Glucose POC Glucose 125 H 127 H Calcium Ferritin Total Bilirubin Alkaline Phosphatase Lactate Dehydrogenase Total Creatine Kinase CK-MB (CK-2) Rel Index Troponin T C-Reactive Protein Total Protein Albumin Prealbumin LDL Cholesterol Direct Arterial Blood Glucose Arterial Blood Ionized Calcium Urine WBC (Auto) 03/21/20 03/21/20 03/21/20 07:35 11:45 17:22 WBC RBC Hgb Hct MCV MCH RDW Plt Count Lymph % (Auto) [place] % (Auto) Lymph # (Auto) [place] # (Auto) Seg Neutrophils % Seg Neuts % (Manual) Lymphocytes % (Manual) Monocytes % (Manual) Basophils % (Manual) Seg Neutrophils # Seg Neutrophils # Man Lymphocytes # (Manual) Monocytes # (Manual) Eosinophils # (Manual) Basophils # (Manual) PT INR D-Dimer ABG pH POC ABG pCO2 POC ABG pO2 ABG pO2 ABG HCO3 ABG O2 Saturation ABG Base Excess ABG Hemoglobin ABG Oxyhemoglobin ABG Potassium ABG Glucose Oxyhemoglobin Carboxyhemoglobin Sodium 136 L Potassium Chloride 97.7 L Carbon Dioxide 32 H BUN Creatinine < 0.2 L Glucose 103 H POC Glucose 126 H 120 H Calcium Ferritin Total Bilirubin Alkaline Phosphatase Lactate Dehydrogenase Total Creatine Kinase CK-MB (CK-2) Rel Index Troponin T C-Reactive Protein Total Protein Albumin Prealbumin LDL Cholesterol Direct Arterial Blood Glucose Arterial Blood Ionized Calcium Urine WBC (Auto) 03/22/20 03/22/20 03/22/20 05:09 06:34 06:34 WBC 17.5 H RBC 3.52 L Hgb 10.0 L Hct 30.7 L MCV MCH RDW 17.5 H Plt Count 499 H Lymph % (Auto) [place] % (Auto) Lymph # (Auto) [place] # (Auto) Seg Neutrophils % Seg Neuts % (Manual) 80.0 H Lymphocytes % (Manual) 10.0 L Monocytes % (Manual) Basophils % (Manual) Seg Neutrophils # Seg Neutrophils # Man 14.0 H Lymphocytes # (Manual) Monocytes # (Manual) Eosinophils # (Manual) Basophils # (Manual) PT INR D-Dimer ABG pH POC ABG pCO2 POC ABG pO2 ABG pO2 ABG HCO3 ABG O2 Saturation ABG Base Excess ABG Hemoglobin ABG Oxyhemoglobin ABG Potassium ABG Glucose Oxyhemoglobin Carboxyhemoglobin Sodium Potassium Chloride 96.6 L Carbon Dioxide 38 H BUN Creatinine < 0.2 L Glucose 139 H POC Glucose 125 H Calcium Ferritin Total Bilirubin Alkaline Phosphatase Lactate Dehydrogenase Total Creatine Kinase CK-MB (CK-2) Rel Index Troponin T C-Reactive Protein Total Protein Albumin Prealbumin LDL Cholesterol Direct Arterial Blood Glucose Arterial Blood Ionized Calcium Urine WBC (Auto) 03/22/20 03/22/20 03/22/20 11:45 18:00 23:32 WBC RBC Hgb Hct MCV MCH RDW Plt Count Lymph % (Auto) [place] % (Auto) Lymph # (Auto) [place] # (Auto) Seg Neutrophils % Seg Neuts % (Manual) Lymphocytes % (Manual) Monocytes % (Manual) Basophils % (Manual) Seg Neutrophils # Seg Neutrophils # Man Lymphocytes # (Manual) Monocytes # (Manual) Eosinophils # (Manual) Basophils # (Manual) PT INR D-Dimer ABG pH POC ABG pCO2 POC ABG pO2 ABG pO2 ABG HCO3 ABG O2 Saturation ABG Base Excess ABG Hemoglobin ABG Oxyhemoglobin ABG Potassium ABG Glucose Oxyhemoglobin Carboxyhemoglobin Sodium Potassium Chloride Carbon Dioxide BUN Creatinine Glucose POC Glucose 135 H 133 H Calcium Ferritin Total Bilirubin Alkaline Phosphatase Lactate Dehydrogenase Total Creatine Kinase CK-MB (CK-2) Rel Index Troponin T 0.113 H* C-Reactive Protein Total Protein Albumin Prealbumin LDL Cholesterol Direct Arterial Blood Glucose Arterial Blood Ionized Calcium Urine WBC (Auto) 03/23/20 03/23/20 03/23/20 01:47 06:21 07:57 WBC RBC Hgb Hct MCV MCH RDW Plt Count Lymph % (Auto) [place] % (Auto) Lymph # (Auto) [place] # (Auto) Seg Neutrophils % Seg Neuts % (Manual) Lymphocytes % (Manual) Monocytes % (Manual) Basophils % (Manual) Seg Neutrophils # Seg Neutrophils # Man Lymphocytes # (Manual) Monocytes # (Manual) Eosinophils # (Manual) Basophils # (Manual) PT INR D-Dimer ABG pH POC ABG pCO2 POC ABG pO2 ABG pO2 ABG HCO3 ABG O2 Saturation ABG Base Excess ABG Hemoglobin ABG Oxyhemoglobin ABG Potassium ABG Glucose Oxyhemoglobin Carboxyhemoglobin Sodium Potassium Chloride Carbon Dioxide BUN Creatinine Glucose POC Glucose 130 H Calcium Ferritin Total Bilirubin Alkaline Phosphatase Lactate Dehydrogenase Total Creatine Kinase CK-MB (CK-2) Rel Index Troponin T 0.143 H* D 0.105 H* D C-Reactive Protein Total Protein Albumin Prealbumin LDL Cholesterol Direct Arterial Blood Glucose Arterial Blood Ionized Calcium Urine WBC (Auto) 03/23/20 03/24/20 03/24/20 12:02 05:33 07:15 WBC 18.0 H RBC Hgb 11.0 L Hct 34.0 L MCV MCH RDW 17.4 H Plt Count 520 H Lymph % (Auto) [place] % (Auto) Lymph # (Auto) [place] # (Auto) Seg Neutrophils % Seg Neuts % (Manual) 88.0 H Lymphocytes % (Manual) 7.0 L Monocytes % (Manual) Basophils % (Manual) Seg Neutrophils # Seg Neutrophils # Man 15.8 H Lymphocytes # (Manual) Monocytes # (Manual) Eosinophils # (Manual) Basophils # (Manual) PT INR D-Dimer ABG pH POC ABG pCO2 POC ABG pO2 ABG pO2 ABG HCO3 ABG O2 Saturation ABG Base Excess ABG Hemoglobin ABG Oxyhemoglobin ABG Potassium ABG Glucose Oxyhemoglobin Carboxyhemoglobin Sodium Potassium Chloride Carbon Dioxide BUN Creatinine Glucose POC Glucose 137 H 112 H Calcium Ferritin Total Bilirubin Alkaline Phosphatase Lactate Dehydrogenase Total Creatine Kinase CK-MB (CK-2) Rel Index Troponin T C-Reactive Protein Total Protein Albumin Prealbumin LDL Cholesterol Direct Arterial Blood Glucose Arterial Blood Ionized Calcium Urine WBC (Auto) 03/24/20 03/24/20 03/24/20 07:15 11:22 23:30 WBC RBC Hgb Hct MCV MCH RDW Plt Count Lymph % (Auto) [place] % (Auto) Lymph # (Auto) [place] # (Auto) Seg Neutrophils % Seg Neuts % (Manual) Lymphocytes % (Manual) Monocytes % (Manual) Basophils % (Manual) Seg Neutrophils # Seg Neutrophils # Man Lymphocytes # (Manual) Monocytes # (Manual) Eosinophils # (Manual) Basophils # (Manual) PT INR D-Dimer ABG pH POC ABG pCO2 POC ABG pO2 ABG pO2 ABG HCO3 ABG O2 Saturation ABG Base Excess ABG Hemoglobin ABG Oxyhemoglobin ABG Potassium ABG Glucose Oxyhemoglobin Carboxyhemoglobin Sodium Potassium Chloride 96.6 L Carbon Dioxide 38 H BUN Creatinine < 0.2 L Glucose 141 H POC Glucose 130 H 120 H Calcium Ferritin Total Bilirubin Alkaline Phosphatase Lactate Dehydrogenase Total Creatine Kinase CK-MB (CK-2) Rel Index Troponin T C-Reactive Protein Total Protein Albumin Prealbumin LDL Cholesterol Direct Arterial Blood Glucose Arterial Blood Ionized Calcium Urine WBC (Auto) 03/25/20 03/25/20 03/25/20 05:48 17:53 23:18 WBC RBC Hgb Hct MCV MCH RDW Plt Count Lymph % (Auto) [place] % (Auto) Lymph # (Auto) [place] # (Auto) Seg Neutrophils % Seg Neuts % (Manual) Lymphocytes % (Manual) Monocytes % (Manual) Basophils % (Manual) Seg Neutrophils # Seg Neutrophils # Man Lymphocytes # (Manual) Monocytes # (Manual) Eosinophils # (Manual) Basophils # (Manual) PT INR D-Dimer ABG pH POC ABG pCO2 POC ABG pO2 ABG pO2 ABG HCO3 ABG O2 Saturation ABG Base Excess ABG Hemoglobin ABG Oxyhemoglobin ABG Potassium ABG Glucose Oxyhemoglobin Carboxyhemoglobin Sodium Potassium Chloride Carbon Dioxide BUN Creatinine Glucose POC Glucose 124 H 109 H 131 H Calcium Ferritin Total Bilirubin Alkaline Phosphatase Lactate Dehydrogenase Total Creatine Kinase CK-MB (CK-2) Rel Index Troponin T C-Reactive Protein Total Protein Albumin Prealbumin LDL Cholesterol Direct Arterial Blood Glucose Arterial Blood Ionized Calcium Urine WBC (Auto) 03/26/20 03/26/20 03/26/20 05:21 08:49 08:49 WBC 19.7 H RBC Hgb 10.7 L Hct 33.5 L MCV MCH 27 L RDW 17.1 H Plt Count 480 H Lymph % (Auto) 5.7 L [place] % (Auto) Lymph # (Auto) 1.1 L [place] # (Auto) 1.2 H Seg Neutrophils % 87.7 H Seg Neuts % (Manual) Lymphocytes % (Manual) Monocytes % (Manual) Basophils % (Manual) Seg Neutrophils # 17.2 H Seg Neutrophils # Man Lymphocytes # (Manual) Monocytes # (Manual) Eosinophils # (Manual) Basophils # (Manual) PT INR D-Dimer ABG pH POC ABG pCO2 POC ABG pO2 ABG pO2 ABG HCO3 ABG O2 Saturation ABG Base Excess ABG Hemoglobin ABG Oxyhemoglobin ABG Potassium ABG Glucose Oxyhemoglobin Carboxyhemoglobin Sodium Potassium Chloride 97.2 L Carbon Dioxide 36 H BUN Creatinine < 0.2 L Glucose 127 H POC Glucose 116 H Calcium Ferritin Total Bilirubin Alkaline Phosphatase Lactate Dehydrogenase Total Creatine Kinase CK-MB (CK-2) Rel Index Troponin T C-Reactive Protein Total Protein Albumin Prealbumin LDL Cholesterol Direct Arterial Blood Glucose Arterial Blood Ionized Calcium Urine WBC (Auto) 03/26/20 03/26/20 03/26/20 11:38 18:44 23:06 WBC RBC Hgb Hct MCV MCH RDW Plt Count Lymph % (Auto) [place] % (Auto) Lymph # (Auto) [place] # (Auto) Seg Neutrophils % Seg Neuts % (Manual) Lymphocytes % (Manual) Monocytes % (Manual) Basophils % (Manual) Seg Neutrophils # Seg Neutrophils # Man Lymphocytes # (Manual) Monocytes # (Manual) Eosinophils # (Manual) Basophils # (Manual) PT INR D-Dimer ABG pH POC ABG pCO2 POC ABG pO2 ABG pO2 ABG HCO3 ABG O2 Saturation ABG Base Excess ABG Hemoglobin ABG Oxyhemoglobin ABG Potassium ABG Glucose Oxyhemoglobin Carboxyhemoglobin Sodium Potassium Chloride Carbon Dioxide BUN Creatinine Glucose POC Glucose 120 H 111 H 134 H Calcium Ferritin Total Bilirubin Alkaline Phosphatase Lactate Dehydrogenase Total Creatine Kinase CK-MB (CK-2) Rel Index Troponin T C-Reactive Protein Total Protein Albumin Prealbumin LDL Cholesterol Direct Arterial Blood Glucose Arterial Blood Ionized Calcium Urine WBC (Auto) 03/27/20 03/27/20 03/27/20 05:41 05:59 05:59 WBC 18.6 H RBC Hgb 10.1 L Hct 31.4 L MCV MCH RDW 17.2 H Plt Count Lymph % (Auto) 8.0 L [place] % (Auto) Lymph # (Auto) [place] # (Auto) 1.2 H Seg Neutrophils % 84.7 H Seg Neuts % (Manual) Lymphocytes % (Manual) Monocytes % (Manual) Basophils % (Manual) Seg Neutrophils # 15.8 H Seg Neutrophils # Man Lymphocytes # (Manual) Monocytes # (Manual) Eosinophils # (Manual) Basophils # (Manual) PT INR D-Dimer ABG pH POC ABG pCO2 POC ABG pO2 ABG pO2 ABG HCO3 ABG O2 Saturation ABG Base Excess ABG Hemoglobin ABG Oxyhemoglobin ABG Potassium ABG Glucose Oxyhemoglobin Carboxyhemoglobin Sodium Potassium Chloride Carbon Dioxide 34 H BUN Creatinine < 0.2 L Glucose 127 H POC Glucose 129 H Calcium Ferritin Total Bilirubin Alkaline Phosphatase Lactate Dehydrogenase Total Creatine Kinase CK-MB (CK-2) Rel Index Troponin T C-Reactive Protein Total Protein Albumin Prealbumin LDL Cholesterol Direct Arterial Blood Glucose Arterial Blood Ionized Calcium Urine WBC (Auto) 03/27/20 03/27/20 03/28/20 17:28 23:22 05:23 WBC RBC Hgb Hct MCV MCH RDW Plt Count Lymph % (Auto) [place] % (Auto) Lymph # (Auto) [place] # (Auto) Seg Neutrophils % Seg Neuts % (Manual) Lymphocytes % (Manual) Monocytes % (Manual) Basophils % (Manual) Seg Neutrophils # Seg Neutrophils # Man Lymphocytes # (Manual) Monocytes # (Manual) Eosinophils # (Manual) Basophils # (Manual) PT INR D-Dimer ABG pH POC ABG pCO2 POC ABG pO2 ABG pO2 ABG HCO3 ABG O2 Saturation ABG Base Excess ABG Hemoglobin ABG Oxyhemoglobin ABG Potassium ABG Glucose Oxyhemoglobin Carboxyhemoglobin Sodium Potassium Chloride Carbon Dioxide BUN Creatinine Glucose POC Glucose 108 H 119 H 129 H Calcium Ferritin Total Bilirubin Alkaline Phosphatase Lactate Dehydrogenase Total Creatine Kinase CK-MB (CK-2) Rel Index Troponin T C-Reactive Protein Total Protein Albumin Prealbumin LDL Cholesterol Direct Arterial Blood Glucose Arterial Blood Ionized Calcium Urine WBC (Auto) 03/28/20 03/28/20 03/28/20 10:28 10:28 11:36 WBC 23.6 H RBC 3.62 L Hgb 10.0 L Hct 30.8 L MCV MCH RDW 16.4 H Plt Count Lymph % (Auto) [place] % (Auto) Lymph # (Auto) [place] # (Auto) Seg Neutrophils % Seg Neuts % (Manual) 89.0 H Lymphocytes % (Manual) 5.0 L Monocytes % (Manual) Basophils % (Manual) Seg Neutrophils # Seg Neutrophils # Man 21.0 H Lymphocytes # (Manual) Monocytes # (Manual) 1.2 H Eosinophils # (Manual) Basophils # (Manual) 0.2 H PT INR D-Dimer ABG pH POC ABG pCO2 POC ABG pO2 ABG pO2 ABG HCO3 ABG O2 Saturation ABG Base Excess ABG Hemoglobin ABG Oxyhemoglobin ABG Potassium ABG Glucose Oxyhemoglobin Carboxyhemoglobin Sodium 134 L Potassium Chloride 94.2 L Carbon Dioxide 35 H BUN Creatinine < 0.2 L Glucose 134 H POC Glucose Calcium Ferritin Total Bilirubin Alkaline Phosphatase Lactate Dehydrogenase Total Creatine Kinase CK-MB (CK-2) Rel Index Troponin T C-Reactive Protein Total Protein Albumin Prealbumin LDL Cholesterol Direct Arterial Blood Glucose Arterial Blood Ionized Calcium Urine WBC (Auto) 39.0 H 03/28/20 03/28/20 03/28/20 11:51 17:08 17:17 WBC RBC Hgb Hct MCV MCH RDW Plt Count Lymph % (Auto) [place] % (Auto) Lymph # (Auto) [place] # (Auto) Seg Neutrophils % Seg Neuts % (Manual) Lymphocytes % (Manual) Monocytes % (Manual) Basophils % (Manual) Seg Neutrophils # Seg Neutrophils # Man Lymphocytes # (Manual) Monocytes # (Manual) Eosinophils # (Manual) Basophils # (Manual) PT INR D-Dimer ABG pH POC ABG pCO2 POC ABG pO2 ABG pO2 ABG HCO3 ABG O2 Saturation ABG Base Excess ABG Hemoglobin ABG Oxyhemoglobin ABG Potassium ABG Glucose Oxyhemoglobin Carboxyhemoglobin Sodium Potassium Chloride Carbon Dioxide BUN Creatinine Glucose POC Glucose 123 H 112 H Calcium Ferritin Total Bilirubin Alkaline Phosphatase Lactate Dehydrogenase Total Creatine Kinase 47 L CK-MB (CK-2) Rel Index 4.6 H Troponin T 0.090 H C-Reactive Protein Total Protein Albumin Prealbumin LDL Cholesterol Direct Arterial Blood Glucose Arterial Blood Ionized Calcium Urine WBC (Auto) 03/28/20 03/29/20 03/29/20 23:22 05:22 10:58 WBC RBC Hgb Hct MCV MCH RDW Plt Count Lymph % (Auto) [place] % (Auto) Lymph # (Auto) [place] # (Auto) Seg Neutrophils % Seg Neuts % (Manual) Lymphocytes % (Manual) Monocytes % (Manual) Basophils % (Manual) Seg Neutrophils # Seg Neutrophils # Man Lymphocytes # (Manual) Monocytes # (Manual) Eosinophils # (Manual) Basophils # (Manual) PT INR D-Dimer ABG pH POC ABG pCO2 POC ABG pO2 ABG pO2 ABG HCO3 ABG O2 Saturation ABG Base Excess ABG Hemoglobin ABG Oxyhemoglobin ABG Potassium ABG Glucose Oxyhemoglobin Carboxyhemoglobin Sodium Potassium Chloride Carbon Dioxide BUN Creatinine Glucose POC Glucose 122 H 116 H 133 H Calcium Ferritin Total Bilirubin Alkaline Phosphatase Lactate Dehydrogenase Total Creatine Kinase CK-MB (CK-2) Rel Index Troponin T C-Reactive Protein Total Protein Albumin Prealbumin LDL Cholesterol Direct Arterial Blood Glucose Arterial Blood Ionized Calcium Urine WBC (Auto) 03/29/20 03/29/20 03/30/20 17:18 23:14 04:57 WBC RBC Hgb Hct MCV MCH RDW Plt Count Lymph % (Auto) [place] % (Auto) Lymph # (Auto) [place] # (Auto) Seg Neutrophils % Seg Neuts % (Manual) Lymphocytes % (Manual) Monocytes % (Manual) Basophils % (Manual) Seg Neutrophils # Seg Neutrophils # Man Lymphocytes # (Manual) Monocytes # (Manual) Eosinophils # (Manual) Basophils # (Manual) PT INR D-Dimer ABG pH POC ABG pCO2 POC ABG pO2 ABG pO2 ABG HCO3 ABG O2 Saturation ABG Base Excess ABG Hemoglobin ABG Oxyhemoglobin ABG Potassium ABG Glucose Oxyhemoglobin Carboxyhemoglobin Sodium Potassium Chloride Carbon Dioxide BUN Creatinine Glucose POC Glucose 111 H 114 H 130 H Calcium Ferritin Total Bilirubin Alkaline Phosphatase Lactate Dehydrogenase Total Creatine Kinase CK-MB (CK-2) Rel Index Troponin T C-Reactive Protein Total Protein Albumin Prealbumin LDL Cholesterol Direct Arterial Blood Glucose Arterial Blood Ionized Calcium Urine WBC (Auto) 03/30/20 03/30/20 03/30/20 11:38 14:47 14:47 WBC 19.9 H RBC Hgb 10.9 L Hct 34.4 L MCV MCH 27 L RDW 16.5 H Plt Count 441 H Lymph % (Auto) 6.4 L [place] % (Auto) Lymph # (Auto) [place] # (Auto) 1.4 H Seg Neutrophils % 86.1 H Seg Neuts % (Manual) Lymphocytes % (Manual) Monocytes % (Manual) Basophils % (Manual) Seg Neutrophils # 17.1 H Seg Neutrophils # Man Lymphocytes # (Manual) Monocytes # (Manual) Eosinophils # (Manual) Basophils # (Manual) PT INR D-Dimer ABG pH POC ABG pCO2 POC ABG pO2 ABG pO2 ABG HCO3 ABG O2 Saturation ABG Base Excess ABG Hemoglobin ABG Oxyhemoglobin ABG Potassium ABG Glucose Oxyhemoglobin Carboxyhemoglobin Sodium 133 L Potassium Chloride 94.6 L Carbon Dioxide 33 H BUN Creatinine < 0.2 L Glucose 194 H POC Glucose 139 H Calcium Ferritin Total Bilirubin Alkaline Phosphatase Lactate Dehydrogenase Total Creatine Kinase CK-MB (CK-2) Rel Index Troponin T C-Reactive Protein Total Protein Albumin 2.8 L Prealbumin LDL Cholesterol Direct Arterial Blood Glucose Arterial Blood Ionized Calcium Urine WBC (Auto) 03/30/20 03/31/20 03/31/20 17:07 05:02 15:21 WBC RBC Hgb Hct MCV MCH RDW Plt Count Lymph % (Auto) [place] % (Auto) Lymph # (Auto) [place] # (Auto) Seg Neutrophils % Seg Neuts % (Manual) Lymphocytes % (Manual) Monocytes % (Manual) Basophils % (Manual) Seg Neutrophils # Seg Neutrophils # Man Lymphocytes # (Manual) Monocytes # (Manual) Eosinophils # (Manual) Basophils # (Manual) PT INR D-Dimer ABG pH POC ABG pCO2 POC ABG pO2 ABG pO2 ABG HCO3 ABG O2 Saturation ABG Base Excess ABG Hemoglobin ABG Oxyhemoglobin ABG Potassium ABG Glucose Oxyhemoglobin Carboxyhemoglobin Sodium Potassium Chloride Carbon Dioxide BUN Creatinine Glucose POC Glucose 163 H 108 H 110 H Calcium Ferritin Total Bilirubin Alkaline Phosphatase Lactate Dehydrogenase Total Creatine Kinase CK-MB (CK-2) Rel Index Troponin T C-Reactive Protein Total Protein Albumin Prealbumin LDL Cholesterol Direct Arterial Blood Glucose Arterial Blood Ionized Calcium Urine WBC (Auto) 03/31/20 03/31/20 04/01/20 17:58 23:19 05:09 WBC RBC Hgb Hct MCV MCH RDW Plt Count Lymph % (Auto) [place] % (Auto) Lymph # (Auto) [place] # (Auto) Seg Neutrophils % Seg Neuts % (Manual) Lymphocytes % (Manual) Monocytes % (Manual) Basophils % (Manual) Seg Neutrophils # Seg Neutrophils # Man Lymphocytes # (Manual) Monocytes # (Manual) Eosinophils # (Manual) Basophils # (Manual) PT INR D-Dimer ABG pH POC ABG pCO2 POC ABG pO2 ABG pO2 ABG HCO3 ABG O2 Saturation ABG Base Excess ABG Hemoglobin ABG Oxyhemoglobin ABG Potassium ABG Glucose Oxyhemoglobin Carboxyhemoglobin Sodium Potassium Chloride Carbon Dioxide BUN Creatinine Glucose POC Glucose 110 H 131 H 124 H Calcium Ferritin Total Bilirubin Alkaline Phosphatase Lactate Dehydrogenase Total Creatine Kinase CK-MB (CK-2) Rel Index Troponin T C-Reactive Protein Total Protein Albumin Prealbumin LDL Cholesterol Direct Arterial Blood Glucose Arterial Blood Ionized Calcium Urine WBC (Auto) 04/01/20 04/01/20 04/01/20 11:50 17:01 23:21 WBC RBC Hgb Hct MCV MCH RDW Plt Count Lymph % (Auto) [place] % (Auto) Lymph # (Auto) [place] # (Auto) Seg Neutrophils % Seg Neuts % (Manual) Lymphocytes % (Manual) Monocytes % (Manual) Basophils % (Manual) Seg Neutrophils # Seg Neutrophils # Man Lymphocytes # (Manual) Monocytes # (Manual) Eosinophils # (Manual) Basophils # (Manual) PT INR D-Dimer ABG pH POC ABG pCO2 POC ABG pO2 ABG pO2 ABG HCO3 ABG O2 Saturation ABG Base Excess ABG Hemoglobin ABG Oxyhemoglobin ABG Potassium ABG Glucose Oxyhemoglobin Carboxyhemoglobin Sodium Potassium Chloride Carbon Dioxide BUN Creatinine Glucose POC Glucose 136 H 115 H 124 H Calcium Ferritin Total Bilirubin Alkaline Phosphatase Lactate Dehydrogenase Total Creatine Kinase CK-MB (CK-2) Rel Index Troponin T C-Reactive Protein Total Protein Albumin Prealbumin LDL Cholesterol Direct Arterial Blood Glucose Arterial Blood Ionized Calcium Urine WBC (Auto) 04/02/20 04/02/20 04/02/20 05:27 11:58 17:58 WBC RBC Hgb Hct MCV MCH RDW Plt Count Lymph % (Auto) [place] % (Auto) Lymph # (Auto) [place] # (Auto) Seg Neutrophils % Seg Neuts % (Manual) Lymphocytes % (Manual) Monocytes % (Manual) Basophils % (Manual) Seg Neutrophils # Seg Neutrophils # Man Lymphocytes # (Manual) Monocytes # (Manual) Eosinophils # (Manual) Basophils # (Manual) PT INR D-Dimer ABG pH POC ABG pCO2 POC ABG pO2 ABG pO2 ABG HCO3 ABG O2 Saturation ABG Base Excess ABG Hemoglobin ABG Oxyhemoglobin ABG Potassium ABG Glucose Oxyhemoglobin Carboxyhemoglobin Sodium Potassium Chloride Carbon Dioxide BUN Creatinine Glucose POC Glucose 117 H 133 H 122 H Calcium Ferritin Total Bilirubin Alkaline Phosphatase Lactate Dehydrogenase Total Creatine Kinase CK-MB (CK-2) Rel Index Troponin T C-Reactive Protein Total Protein Albumin Prealbumin LDL Cholesterol Direct Arterial Blood Glucose Arterial Blood Ionized Calcium Urine WBC (Auto) 04/02/20 04/03/20 04/03/20 23:12 05:11 11:11 WBC RBC Hgb Hct MCV MCH RDW Plt Count Lymph % (Auto) [place] % (Auto) Lymph # (Auto) [place] # (Auto) Seg Neutrophils % Seg Neuts % (Manual) Lymphocytes % (Manual) Monocytes % (Manual) Basophils % (Manual) Seg Neutrophils # Seg Neutrophils # Man Lymphocytes # (Manual) Monocytes # (Manual) Eosinophils # (Manual) Basophils # (Manual) PT INR D-Dimer ABG pH POC ABG pCO2 POC ABG pO2 ABG pO2 ABG HCO3 ABG O2 Saturation ABG Base Excess ABG Hemoglobin ABG Oxyhemoglobin ABG Potassium ABG Glucose Oxyhemoglobin Carboxyhemoglobin Sodium Potassium Chloride Carbon Dioxide BUN Creatinine Glucose POC Glucose 130 H 139 H 136 H Calcium Ferritin Total Bilirubin Alkaline Phosphatase Lactate Dehydrogenase Total Creatine Kinase CK-MB (CK-2) Rel Index Troponin T C-Reactive Protein Total Protein Albumin Prealbumin LDL Cholesterol Direct Arterial Blood Glucose Arterial Blood Ionized Calcium Urine WBC (Auto) 04/03/20 04/03/20 04/04/20 16:51 23:25 05:29 WBC RBC Hgb Hct MCV MCH RDW Plt Count Lymph % (Auto) [place] % (Auto) Lymph # (Auto) [place] # (Auto) Seg Neutrophils % Seg Neuts % (Manual) Lymphocytes % (Manual) Monocytes % (Manual) Basophils % (Manual) Seg Neutrophils # Seg Neutrophils # Man Lymphocytes # (Manual) Monocytes # (Manual) Eosinophils # (Manual) Basophils # (Manual) PT INR D-Dimer ABG pH POC ABG pCO2 POC ABG pO2 ABG pO2 ABG HCO3 ABG O2 Saturation ABG Base Excess ABG Hemoglobin ABG Oxyhemoglobin ABG Potassium ABG Glucose Oxyhemoglobin Carboxyhemoglobin Sodium Potassium Chloride Carbon Dioxide BUN Creatinine Glucose POC Glucose 118 H 111 H 126 H Calcium Ferritin Total Bilirubin Alkaline Phosphatase Lactate Dehydrogenase Total Creatine Kinase CK-MB (CK-2) Rel Index Troponin T C-Reactive Protein Total Protein Albumin Prealbumin LDL Cholesterol Direct Arterial Blood Glucose Arterial Blood Ionized Calcium Urine WBC (Auto) 04/04/20 04/04/20 04/04/20 11:47 17:41 23:05 WBC RBC Hgb Hct MCV MCH RDW Plt Count Lymph % (Auto) [place] % (Auto) Lymph # (Auto) [place] # (Auto) Seg Neutrophils % Seg Neuts % (Manual) Lymphocytes % (Manual) Monocytes % (Manual) Basophils % (Manual) Seg Neutrophils # Seg Neutrophils # Man Lymphocytes # (Manual) Monocytes # (Manual) Eosinophils # (Manual) Basophils # (Manual) PT INR D-Dimer ABG pH POC ABG pCO2 POC ABG pO2 ABG pO2 ABG HCO3 ABG O2 Saturation ABG Base Excess ABG Hemoglobin ABG Oxyhemoglobin ABG Potassium ABG Glucose Oxyhemoglobin Carboxyhemoglobin Sodium Potassium Chloride Carbon Dioxide BUN Creatinine Glucose POC Glucose 123 H 120 H 119 H Calcium Ferritin Total Bilirubin Alkaline Phosphatase Lactate Dehydrogenase Total Creatine Kinase CK-MB (CK-2) Rel Index Troponin T C-Reactive Protein Total Protein Albumin Prealbumin LDL Cholesterol Direct Arterial Blood Glucose Arterial Blood Ionized Calcium Urine WBC (Auto) 04/05/20 04/05/20 04/05/20 05:14 12:16 18:48 WBC RBC Hgb Hct MCV MCH RDW Plt Count Lymph % (Auto) [place] % (Auto) Lymph # (Auto) [place] # (Auto) Seg Neutrophils % Seg Neuts % (Manual) Lymphocytes % (Manual) Monocytes % (Manual) Basophils % (Manual) Seg Neutrophils # Seg Neutrophils # Man Lymphocytes # (Manual) Monocytes # (Manual) Eosinophils # (Manual) Basophils # (Manual) PT INR D-Dimer ABG pH POC ABG pCO2 POC ABG pO2 ABG pO2 ABG HCO3 ABG O2 Saturation ABG Base Excess ABG Hemoglobin ABG Oxyhemoglobin ABG Potassium ABG Glucose Oxyhemoglobin Carboxyhemoglobin Sodium Potassium Chloride Carbon Dioxide BUN Creatinine Glucose POC Glucose 123 H 148 H 106 H Calcium Ferritin Total Bilirubin Alkaline Phosphatase Lactate Dehydrogenase Total Creatine Kinase CK-MB (CK-2) Rel Index Troponin T C-Reactive Protein Total Protein Albumin Prealbumin LDL Cholesterol Direct Arterial Blood Glucose Arterial Blood Ionized Calcium Urine WBC (Auto) 04/06/20 04/06/20 04/06/20 00:47 03:26 08:24 WBC RBC Hgb Hct MCV MCH RDW Plt Count Lymph % (Auto) [place] % (Auto) Lymph # (Auto) [place] # (Auto) Seg Neutrophils % Seg Neuts % (Manual) Lymphocytes % (Manual) Monocytes % (Manual) Basophils % (Manual) Seg Neutrophils # Seg Neutrophils # Man Lymphocytes # (Manual) Monocytes # (Manual) Eosinophils # (Manual) Basophils # (Manual) PT INR D-Dimer ABG pH POC ABG pCO2 POC ABG pO2 ABG pO2 ABG HCO3 ABG O2 Saturation ABG Base Excess ABG Hemoglobin ABG Oxyhemoglobin ABG Potassium ABG Glucose Oxyhemoglobin Carboxyhemoglobin Sodium Potassium Chloride Carbon Dioxide BUN Creatinine Glucose POC Glucose 129 H 134 H 131 H Calcium Ferritin Total Bilirubin Alkaline Phosphatase Lactate Dehydrogenase Total Creatine Kinase CK-MB (CK-2) Rel Index Troponin T C-Reactive Protein Total Protein Albumin Prealbumin LDL Cholesterol Direct Arterial Blood Glucose Arterial Blood Ionized Calcium Urine WBC (Auto) 04/06/20 04/06/20 04/06/20 11:16 16:27 23:01 WBC RBC Hgb Hct MCV MCH RDW Plt Count Lymph % (Auto) [place] % (Auto) Lymph # (Auto) [place] # (Auto) Seg Neutrophils % Seg Neuts % (Manual) Lymphocytes % (Manual) Monocytes % (Manual) Basophils % (Manual) Seg Neutrophils # Seg Neutrophils # Man Lymphocytes # (Manual) Monocytes # (Manual) Eosinophils # (Manual) Basophils # (Manual) PT INR D-Dimer ABG pH POC ABG pCO2 POC ABG pO2 ABG pO2 ABG HCO3 ABG O2 Saturation ABG Base Excess ABG Hemoglobin ABG Oxyhemoglobin ABG Potassium ABG Glucose Oxyhemoglobin Carboxyhemoglobin Sodium Potassium Chloride Carbon Dioxide BUN Creatinine Glucose POC Glucose 131 H 107 H 125 H Calcium Ferritin Total Bilirubin Alkaline Phosphatase Lactate Dehydrogenase Total Creatine Kinase CK-MB (CK-2) Rel Index Troponin T C-Reactive Protein Total Protein Albumin Prealbumin LDL Cholesterol Direct Arterial Blood Glucose Arterial Blood Ionized Calcium Urine WBC (Auto) 04/07/20 04/07/20 04/07/20 05:24 12:41 17:40 WBC RBC Hgb Hct MCV MCH RDW Plt Count Lymph % (Auto) [place] % (Auto) Lymph # (Auto) [place] # (Auto) Seg Neutrophils % Seg Neuts % (Manual) Lymphocytes % (Manual) Monocytes % (Manual) Basophils % (Manual) Seg Neutrophils # Seg Neutrophils # Man Lymphocytes # (Manual) Monocytes # (Manual) Eosinophils # (Manual) Basophils # (Manual) PT INR D-Dimer ABG pH POC ABG pCO2 POC ABG pO2 ABG pO2 ABG HCO3 ABG O2 Saturation ABG Base Excess ABG Hemoglobin ABG Oxyhemoglobin ABG Potassium ABG Glucose Oxyhemoglobin Carboxyhemoglobin Sodium Potassium Chloride Carbon Dioxide BUN Creatinine Glucose POC Glucose 125 H 145 H 123 H Calcium Ferritin Total Bilirubin Alkaline Phosphatase Lactate Dehydrogenase Total Creatine Kinase CK-MB (CK-2) Rel Index Troponin T C-Reactive Protein Total Protein Albumin Prealbumin LDL Cholesterol Direct Arterial Blood Glucose Arterial Blood Ionized Calcium Urine WBC (Auto) 04/07/20 04/08/20 04/08/20 23:22 05:40 11:29 WBC RBC Hgb Hct MCV MCH RDW Plt Count Lymph % (Auto) [place] % (Auto) Lymph # (Auto) [place] # (Auto) Seg Neutrophils % Seg Neuts % (Manual) Lymphocytes % (Manual) Monocytes % (Manual) Basophils % (Manual) Seg Neutrophils # Seg Neutrophils # Man Lymphocytes # (Manual) Monocytes # (Manual) Eosinophils # (Manual) Basophils # (Manual) PT INR D-Dimer ABG pH POC ABG pCO2 POC ABG pO2 ABG pO2 ABG HCO3 ABG O2 Saturation ABG Base Excess ABG Hemoglobin ABG Oxyhemoglobin ABG Potassium ABG Glucose Oxyhemoglobin Carboxyhemoglobin Sodium Potassium Chloride Carbon Dioxide BUN Creatinine Glucose POC Glucose 133 H 125 H 116 H Calcium Ferritin Total Bilirubin Alkaline Phosphatase Lactate Dehydrogenase Total Creatine Kinase CK-MB (CK-2) Rel Index Troponin T C-Reactive Protein Total Protein Albumin Prealbumin LDL Cholesterol Direct Arterial Blood Glucose Arterial Blood Ionized Calcium Urine WBC (Auto) 04/08/20 04/09/20 04/09/20 17:43 05:47 12:22 WBC RBC Hgb Hct MCV MCH RDW Plt Count Lymph % (Auto) [place] % (Auto) Lymph # (Auto) [place] # (Auto) Seg Neutrophils % Seg Neuts % (Manual) Lymphocytes % (Manual) Monocytes % (Manual) Basophils % (Manual) Seg Neutrophils # Seg Neutrophils # Man Lymphocytes # (Manual) Monocytes # (Manual) Eosinophils # (Manual) Basophils # (Manual) PT INR D-Dimer ABG pH POC ABG pCO2 POC ABG pO2 ABG pO2 ABG HCO3 ABG O2 Saturation ABG Base Excess ABG Hemoglobin ABG Oxyhemoglobin ABG Potassium ABG Glucose Oxyhemoglobin Carboxyhemoglobin Sodium Potassium Chloride Carbon Dioxide BUN Creatinine Glucose POC Glucose 123 H 108 H 116 H Calcium Ferritin Total Bilirubin Alkaline Phosphatase Lactate Dehydrogenase Total Creatine Kinase CK-MB (CK-2) Rel Index Troponin T C-Reactive Protein Total Protein Albumin Prealbumin LDL Cholesterol Direct Arterial Blood Glucose Arterial Blood Ionized Calcium Urine WBC (Auto) 04/09/20 04/09/20 04/10/20 17:24 23:52 06:10 WBC RBC Hgb Hct MCV MCH RDW Plt Count Lymph % (Auto) [place] % (Auto) Lymph # (Auto) [place] # (Auto) Seg Neutrophils % Seg Neuts % (Manual) Lymphocytes % (Manual) Monocytes % (Manual) Basophils % (Manual) Seg Neutrophils # Seg Neutrophils # Man Lymphocytes # (Manual) Monocytes # (Manual) Eosinophils # (Manual) Basophils # (Manual) PT INR D-Dimer ABG pH POC ABG pCO2 POC ABG pO2 ABG pO2 ABG HCO3 ABG O2 Saturation ABG Base Excess ABG Hemoglobin ABG Oxyhemoglobin ABG Potassium ABG Glucose Oxyhemoglobin Carboxyhemoglobin Sodium Potassium Chloride Carbon Dioxide BUN Creatinine Glucose POC Glucose 108 H 126 H 122 H Calcium Ferritin Total Bilirubin Alkaline Phosphatase Lactate Dehydrogenase Total Creatine Kinase CK-MB (CK-2) Rel Index Troponin T C-Reactive Protein Total Protein Albumin Prealbumin LDL Cholesterol Direct Arterial Blood Glucose Arterial Blood Ionized Calcium Urine WBC (Auto) 04/10/20 04/10/20 04/10/20 11:27 18:11 23:24 WBC RBC Hgb Hct MCV MCH RDW Plt Count Lymph % (Auto) [place] % (Auto) Lymph # (Auto) [place] # (Auto) Seg Neutrophils % Seg Neuts % (Manual) Lymphocytes % (Manual) Monocytes % (Manual) Basophils % (Manual) Seg Neutrophils # Seg Neutrophils # Man Lymphocytes # (Manual) Monocytes # (Manual) Eosinophils # (Manual) Basophils # (Manual) PT INR D-Dimer ABG pH POC ABG pCO2 POC ABG pO2 ABG pO2 ABG HCO3 ABG O2 Saturation ABG Base Excess ABG Hemoglobin ABG Oxyhemoglobin ABG Potassium ABG Glucose Oxyhemoglobin Carboxyhemoglobin Sodium Potassium Chloride Carbon Dioxide BUN Creatinine Glucose POC Glucose 129 H 125 H 107 H Calcium Ferritin Total Bilirubin Alkaline Phosphatase Lactate Dehydrogenase Total Creatine Kinase CK-MB (CK-2) Rel Index Troponin T C-Reactive Protein Total Protein Albumin Prealbumin LDL Cholesterol Direct Arterial Blood Glucose Arterial Blood Ionized Calcium Urine WBC (Auto) 04/11/20 04/11/20 04/11/20 05:28 11:46 23:49 WBC RBC Hgb Hct MCV MCH RDW Plt Count Lymph % (Auto) [place] % (Auto) Lymph # (Auto) [place] # (Auto) Seg Neutrophils % Seg Neuts % (Manual) Lymphocytes % (Manual) Monocytes % (Manual) Basophils % (Manual) Seg Neutrophils # Seg Neutrophils # Man Lymphocytes # (Manual) Monocytes # (Manual) Eosinophils # (Manual) Basophils # (Manual) PT INR D-Dimer ABG pH POC ABG pCO2 POC ABG pO2 ABG pO2 ABG HCO3 ABG O2 Saturation ABG Base Excess ABG Hemoglobin ABG Oxyhemoglobin ABG Potassium ABG Glucose Oxyhemoglobin Carboxyhemoglobin Sodium Potassium Chloride Carbon Dioxide BUN Creatinine Glucose POC Glucose 122 H 122 H 116 H Calcium Ferritin Total Bilirubin Alkaline Phosphatase Lactate Dehydrogenase Total Creatine Kinase CK-MB (CK-2) Rel Index Troponin T C-Reactive Protein Total Protein Albumin Prealbumin LDL Cholesterol Direct Arterial Blood Glucose Arterial Blood Ionized Calcium Urine WBC (Auto) 04/12/20 04/12/20 04/12/20 09:07 09:07 11:39 WBC 13.1 H RBC 3.59 L Hgb 9.5 L Hct 29.8 L MCV 83 L MCH 26 L RDW 16.6 H Plt Count 591 H Lymph % (Auto) [place] % (Auto) Lymph # (Auto) [place] # (Auto) Seg Neutrophils % Seg Neuts % (Manual) 86.0 H Lymphocytes % (Manual) 7.0 L Monocytes % (Manual) Basophils % (Manual) Seg Neutrophils # Seg Neutrophils # Man 11.3 H Lymphocytes # (Manual) 0.9 L Monocytes # (Manual) Eosinophils # (Manual) Basophils # (Manual) PT INR D-Dimer ABG pH POC ABG pCO2 POC ABG pO2 ABG pO2 ABG HCO3 ABG O2 Saturation ABG Base Excess ABG Hemoglobin ABG Oxyhemoglobin ABG Potassium ABG Glucose Oxyhemoglobin Carboxyhemoglobin Sodium Potassium Chloride Carbon Dioxide 36 H BUN Creatinine < 0.2 L Glucose 132 H POC Glucose 136 H Calcium Ferritin Total Bilirubin Alkaline Phosphatase Lactate Dehydrogenase Total Creatine Kinase CK-MB (CK-2) Rel Index Troponin T C-Reactive Protein Total Protein Albumin 2.7 L Prealbumin LDL Cholesterol Direct Arterial Blood Glucose Arterial Blood Ionized Calcium Urine WBC (Auto) 04/12/20 04/12/20 04/13/20 18:13 23:07 05:45 WBC RBC Hgb Hct MCV MCH RDW Plt Count Lymph % (Auto) [place] % (Auto) Lymph # (Auto) [place] # (Auto) Seg Neutrophils % Seg Neuts % (Manual) Lymphocytes % (Manual) Monocytes % (Manual) Basophils % (Manual) Seg Neutrophils # Seg Neutrophils # Man Lymphocytes # (Manual) Monocytes # (Manual) Eosinophils # (Manual) Basophils # (Manual) PT INR D-Dimer ABG pH POC ABG pCO2 POC ABG pO2 ABG pO2 ABG HCO3 ABG O2 Saturation ABG Base Excess ABG Hemoglobin ABG Oxyhemoglobin ABG Potassium ABG Glucose Oxyhemoglobin Carboxyhemoglobin Sodium Potassium Chloride Carbon Dioxide BUN Creatinine Glucose POC Glucose 107 H 106 H 125 H Calcium Ferritin Total Bilirubin Alkaline Phosphatase Lactate Dehydrogenase Total Creatine Kinase CK-MB (CK-2) Rel Index Troponin T C-Reactive Protein Total Protein Albumin Prealbumin LDL Cholesterol Direct Arterial Blood Glucose Arterial Blood Ionized Calcium Urine WBC (Auto) 04/13/20 04/13/20 04/13/20 11:18 17:56 23:33 WBC RBC Hgb Hct MCV MCH RDW Plt Count Lymph % (Auto) [place] % (Auto) Lymph # (Auto) [place] # (Auto) Seg Neutrophils % Seg Neuts % (Manual) Lymphocytes % (Manual) Monocytes % (Manual) Basophils % (Manual) Seg Neutrophils # Seg Neutrophils # Man Lymphocytes # (Manual) Monocytes # (Manual) Eosinophils # (Manual) Basophils # (Manual) PT INR D-Dimer ABG pH POC ABG pCO2 POC ABG pO2 ABG pO2 ABG HCO3 ABG O2 Saturation ABG Base Excess ABG Hemoglobin ABG Oxyhemoglobin ABG Potassium ABG Glucose Oxyhemoglobin Carboxyhemoglobin Sodium Potassium Chloride Carbon Dioxide BUN Creatinine Glucose POC Glucose 133 H 110 H 114 H Calcium Ferritin Total Bilirubin Alkaline Phosphatase Lactate Dehydrogenase Total Creatine Kinase CK-MB (CK-2) Rel Index Troponin T C-Reactive Protein Total Protein Albumin Prealbumin LDL Cholesterol Direct Arterial Blood Glucose Arterial Blood Ionized Calcium Urine WBC (Auto) 04/14/20 04/14/20 04/14/20 05:58 11:45 17:48 WBC RBC Hgb Hct MCV MCH RDW Plt Count Lymph % (Auto) [place] % (Auto) Lymph # (Auto) [place] # (Auto) Seg Neutrophils % Seg Neuts % (Manual) Lymphocytes % (Manual) Monocytes % (Manual) Basophils % (Manual) Seg Neutrophils # Seg Neutrophils # Man Lymphocytes # (Manual) Monocytes # (Manual) Eosinophils # (Manual) Basophils # (Manual) PT INR D-Dimer ABG pH POC ABG pCO2 POC ABG pO2 ABG pO2 ABG HCO3 ABG O2 Saturation ABG Base Excess ABG Hemoglobin ABG Oxyhemoglobin ABG Potassium ABG Glucose Oxyhemoglobin Carboxyhemoglobin Sodium Potassium Chloride Carbon Dioxide BUN Creatinine Glucose POC Glucose 115 H 122 H 124 H Calcium Ferritin Total Bilirubin Alkaline Phosphatase Lactate Dehydrogenase Total Creatine Kinase CK-MB (CK-2) Rel Index Troponin T C-Reactive Protein Total Protein Albumin Prealbumin LDL Cholesterol Direct Arterial Blood Glucose Arterial Blood Ionized Calcium Urine WBC (Auto) 04/15/20 04/15/20 04/15/20 00:11 05:38 11:31 WBC RBC Hgb Hct MCV MCH RDW Plt Count Lymph % (Auto) [place] % (Auto) Lymph # (Auto) [place] # (Auto) Seg Neutrophils % Seg Neuts % (Manual) Lymphocytes % (Manual) Monocytes % (Manual) Basophils % (Manual) Seg Neutrophils # Seg Neutrophils # Man Lymphocytes # (Manual) Monocytes # (Manual) Eosinophils # (Manual) Basophils # (Manual) PT INR D-Dimer ABG pH POC ABG pCO2 POC ABG pO2 ABG pO2 ABG HCO3 ABG O2 Saturation ABG Base Excess ABG Hemoglobin ABG Oxyhemoglobin ABG Potassium ABG Glucose Oxyhemoglobin Carboxyhemoglobin Sodium Potassium Chloride Carbon Dioxide BUN Creatinine Glucose POC Glucose 120 H 109 H 123 H Calcium Ferritin Total Bilirubin Alkaline Phosphatase Lactate Dehydrogenase Total Creatine Kinase CK-MB (CK-2) Rel Index Troponin T C-Reactive Protein Total Protein Albumin Prealbumin LDL Cholesterol Direct Arterial Blood Glucose Arterial Blood Ionized Calcium Urine WBC (Auto) 04/15/20 04/16/20 04/16/20 17:35 06:00 11:29 WBC RBC Hgb Hct MCV MCH RDW Plt Count Lymph % (Auto) [place] % (Auto) Lymph # (Auto) [place] # (Auto) Seg Neutrophils % Seg Neuts % (Manual) Lymphocytes % (Manual) Monocytes % (Manual) Basophils % (Manual) Seg Neutrophils # Seg Neutrophils # Man Lymphocytes # (Manual) Monocytes # (Manual) Eosinophils # (Manual) Basophils # (Manual) PT INR D-Dimer ABG pH POC ABG pCO2 POC ABG pO2 ABG pO2 ABG HCO3 ABG O2 Saturation ABG Base Excess ABG Hemoglobin ABG Oxyhemoglobin ABG Potassium ABG Glucose Oxyhemoglobin Carboxyhemoglobin Sodium Potassium Chloride Carbon Dioxide BUN Creatinine Glucose POC Glucose 111 H 142 H 108 H Calcium Ferritin Total Bilirubin Alkaline Phosphatase Lactate Dehydrogenase Total Creatine Kinase CK-MB (CK-2) Rel Index Troponin T C-Reactive Protein Total Protein Albumin Prealbumin LDL Cholesterol Direct Arterial Blood Glucose Arterial Blood Ionized Calcium Urine WBC (Auto) 04/17/20 04/17/20 04/17/20 05:09 06:53 06:53 WBC 14.2 H RBC Hgb 10.1 L Hct 31.5 L MCV MCH 27 L RDW 17.2 H Plt Count 643 H Lymph % (Auto) [place] % (Auto) Lymph # (Auto) [place] # (Auto) Seg Neutrophils % Seg Neuts % (Manual) Lymphocytes % (Manual) Monocytes % (Manual) Basophils % (Manual) Seg Neutrophils # Seg Neutrophils # Man Lymphocytes # (Manual) Monocytes # (Manual) Eosinophils # (Manual) Basophils # (Manual) PT INR D-Dimer ABG pH POC ABG pCO2 POC ABG pO2 ABG pO2 ABG HCO3 ABG O2 Saturation ABG Base Excess ABG Hemoglobin ABG Oxyhemoglobin ABG Potassium ABG Glucose Oxyhemoglobin Carboxyhemoglobin Sodium Potassium Chloride 97.7 L Carbon Dioxide 38 H BUN Creatinine < 0.2 L Glucose 126 H POC Glucose 131 H Calcium Ferritin Total Bilirubin Alkaline Phosphatase Lactate Dehydrogenase Total Creatine Kinase CK-MB (CK-2) Rel Index Troponin T C-Reactive Protein Total Protein Albumin Prealbumin LDL Cholesterol Direct Arterial Blood Glucose Arterial Blood Ionized Calcium Urine WBC (Auto) 04/17/20 04/18/20 04/18/20 11:21 00:23 04:01 WBC 15.3 H RBC Hgb 10.1 L Hct 31.9 L MCV 82 L MCH 26 L RDW 17.2 H Plt Count 665 H Lymph % (Auto) 12.9 L [place] % (Auto) Lymph # (Auto) [place] # (Auto) 1.1 H Seg Neutrophils % 78.0 H Seg Neuts % (Manual) Lymphocytes % (Manual) Monocytes % (Manual) Basophils % (Manual) Seg Neutrophils # 11.9 H Seg Neutrophils # Man Lymphocytes # (Manual) Monocytes # (Manual) Eosinophils # (Manual) Basophils # (Manual) PT INR D-Dimer ABG pH POC ABG pCO2 POC ABG pO2 ABG pO2 ABG HCO3 ABG O2 Saturation ABG Base Excess ABG Hemoglobin ABG Oxyhemoglobin ABG Potassium ABG Glucose Oxyhemoglobin Carboxyhemoglobin Sodium Potassium Chloride Carbon Dioxide BUN Creatinine Glucose POC Glucose 140 H 125 H Calcium Ferritin Total Bilirubin Alkaline Phosphatase Lactate Dehydrogenase Total Creatine Kinase CK-MB (CK-2) Rel Index Troponin T C-Reactive Protein Total Protein Albumin Prealbumin LDL Cholesterol Direct Arterial Blood Glucose Arterial Blood Ionized Calcium Urine WBC (Auto) 04/18/20 04/18/20 04/18/20 04:01 11:29 17:30 WBC RBC Hgb Hct MCV MCH RDW Plt Count Lymph % (Auto) [place] % (Auto) Lymph # (Auto) [place] # (Auto) Seg Neutrophils % Seg Neuts % (Manual) Lymphocytes % (Manual) Monocytes % (Manual) Basophils % (Manual) Seg Neutrophils # Seg Neutrophils # Man Lymphocytes # (Manual) Monocytes # (Manual) Eosinophils # (Manual) Basophils # (Manual) PT INR D-Dimer ABG pH POC ABG pCO2 POC ABG pO2 ABG pO2 ABG HCO3 ABG O2 Saturation ABG Base Excess ABG Hemoglobin ABG Oxyhemoglobin ABG Potassium ABG Glucose Oxyhemoglobin Carboxyhemoglobin Sodium Potassium Chloride 97.0 L Carbon Dioxide 38 H BUN Creatinine < 0.2 L Glucose 117 H POC Glucose 136 H 107 H Calcium Ferritin Total Bilirubin Alkaline Phosphatase Lactate Dehydrogenase Total Creatine Kinase CK-MB (CK-2) Rel Index Troponin T C-Reactive Protein Total Protein Albumin Prealbumin LDL Cholesterol Direct Arterial Blood Glucose Arterial Blood Ionized Calcium Urine WBC (Auto) 04/18/20 04/19/20 04/19/20 23:19 06:51 06:51 WBC 12.2 H RBC Hgb 9.8 L Hct 31.1 L MCV 82 L MCH 26 L RDW 17.2 H Plt Count 549 H Lymph % (Auto) 6.5 L [place] % (Auto) Lymph # (Auto) 0.8 L [place] # (Auto) Seg Neutrophils % 86.7 H Seg Neuts % (Manual) Lymphocytes % (Manual) Monocytes % (Manual) Basophils % (Manual) Seg Neutrophils # 10.6 H Seg Neutrophils # Man Lymphocytes # (Manual) Monocytes # (Manual) Eosinophils # (Manual) Basophils # (Manual) PT INR D-Dimer ABG pH POC ABG pCO2 POC ABG pO2 ABG pO2 ABG HCO3 ABG O2 Saturation ABG Base Excess ABG Hemoglobin ABG Oxyhemoglobin ABG Potassium ABG Glucose Oxyhemoglobin Carboxyhemoglobin Sodium Potassium Chloride 97.8 L Carbon Dioxide 38 H BUN Creatinine < 0.2 L Glucose 123 H POC Glucose 127 H Calcium Ferritin Total Bilirubin Alkaline Phosphatase Lactate Dehydrogenase Total Creatine Kinase CK-MB (CK-2) Rel Index Troponin T C-Reactive Protein Total Protein Albumin Prealbumin LDL Cholesterol Direct Arterial Blood Glucose Arterial Blood Ionized Calcium Urine WBC (Auto) 04/19/20 04/19/20 04/20/20 13:41 18:33 05:56 WBC RBC Hgb Hct MCV MCH RDW Plt Count Lymph % (Auto) [place] % (Auto) Lymph # (Auto) [place] # (Auto) Seg Neutrophils % Seg Neuts % (Manual) Lymphocytes % (Manual) Monocytes % (Manual) Basophils % (Manual) Seg Neutrophils # Seg Neutrophils # Man Lymphocytes # (Manual) Monocytes # (Manual) Eosinophils # (Manual) Basophils # (Manual) PT INR D-Dimer ABG pH POC ABG pCO2 POC ABG pO2 ABG pO2 ABG HCO3 ABG O2 Saturation ABG Base Excess ABG Hemoglobin ABG Oxyhemoglobin ABG Potassium ABG Glucose Oxyhemoglobin Carboxyhemoglobin Sodium Potassium Chloride Carbon Dioxide BUN Creatinine Glucose POC Glucose 116 H 124 H 130 H Calcium Ferritin Total Bilirubin Alkaline Phosphatase Lactate Dehydrogenase Total Creatine Kinase CK-MB (CK-2) Rel Index Troponin T C-Reactive Protein Total Protein Albumin Prealbumin LDL Cholesterol Direct Arterial Blood Glucose Arterial Blood Ionized Calcium Urine WBC (Auto) 04/20/20 04/20/20 04/20/20 06:28 06:28 11:46 WBC RBC Hgb 10.2 L Hct 31.5 L MCV 82 L MCH 27 L RDW 17.1 H Plt Count 546 H Lymph % (Auto) 10.0 L [place] % (Auto) 9.8 H Lymph # (Auto) 1.1 L [place] # (Auto) 1.1 H Seg Neutrophils % 78.4 H Seg Neuts % (Manual) Lymphocytes % (Manual) Monocytes % (Manual) Basophils % (Manual) Seg Neutrophils # 8.5 H Seg Neutrophils # Man Lymphocytes # (Manual) Monocytes # (Manual) Eosinophils # (Manual) Basophils # (Manual) PT INR D-Dimer ABG pH POC ABG pCO2 POC ABG pO2 ABG pO2 ABG HCO3 ABG O2 Saturation ABG Base Excess ABG Hemoglobin ABG Oxyhemoglobin ABG Potassium ABG Glucose Oxyhemoglobin Carboxyhemoglobin Sodium Potassium Chloride 97.0 L Carbon Dioxide 38 H BUN Creatinine < 0.2 L Glucose 138 H POC Glucose 130 H Calcium Ferritin Total Bilirubin Alkaline Phosphatase Lactate Dehydrogenase Total Creatine Kinase CK-MB (CK-2) Rel Index Troponin T C-Reactive Protein Total Protein Albumin Prealbumin LDL Cholesterol Direct Arterial Blood Glucose Arterial Blood Ionized Calcium Urine WBC (Auto) 04/20/20 04/21/20 04/21/20 23:31 05:55 05:55 WBC RBC Hgb 10.0 L Hct 31.1 L MCV 82 L MCH 26 L RDW 17.0 H Plt Count 535 H Lymph % (Auto) [place] % (Auto) 9.2 H Lymph # (Auto) 1.1 L [place] # (Auto) Seg Neutrophils % 75.4 H Seg Neuts % (Manual) Lymphocytes % (Manual) Monocytes % (Manual) Basophils % (Manual) Seg Neutrophils # Seg Neutrophils # Man Lymphocytes # (Manual) Monocytes # (Manual) Eosinophils # (Manual) Basophils # (Manual) PT INR D-Dimer ABG pH POC ABG pCO2 POC ABG pO2 ABG pO2 ABG HCO3 ABG O2 Saturation ABG Base Excess ABG Hemoglobin ABG Oxyhemoglobin ABG Potassium ABG Glucose Oxyhemoglobin Carboxyhemoglobin Sodium Potassium Chloride 95.0 L Carbon Dioxide 34 H BUN Creatinine < 0.2 L Glucose 125 H POC Glucose 116 H Calcium Ferritin Total Bilirubin Alkaline Phosphatase Lactate Dehydrogenase Total Creatine Kinase CK-MB (CK-2) Rel Index Troponin T C-Reactive Protein Total Protein Albumin Prealbumin LDL Cholesterol Direct Arterial Blood Glucose Arterial Blood Ionized Calcium Urine WBC (Auto) Allied health notes reviewed: RT
[2020-04-21] MEDS: ZOLPIDEM 5 MG TAB PO PRN (21:32)
[2020-04-21] MEDS: SENNOSIDES 8.6 MG TAB PO SCH (21:33)
[2020-04-21] MEDS: ENOXAPARIN 40 MG/0.4 ML INJ SUB-Q SCH (21:34)
[2020-04-22] MEDS: MORPHINE 2 MG/1 ML INJ IV PRN ×5 (02:19→22:32)
[2020-04-22] MEDS: ALPRAZolam 0.5 MG TAB PO PRN ×3 (02:20→22:33)
[2020-04-22 08:36] LABS: Hematocrit 30.7 % (35.5-45.6); Mean Corpuscular HGB Conc 33 % (32-34); Mean Corpuscular Volume 81 fl (84-94); Platelet Count 490 K/mm3 (140-440); Red Blood Count 3.77 M/mm3 (3.65-5.03); Red Cell Distribution Width 17.1 % (13.2-15.2)
[2020-04-22 08:56] LABS: Blood Urea Nitrogen 17 mg/dL (9-20); Calcium 9.1 mg/dL (8.4-10.2); Hemolysis Index 3
[2020-04-22 09:00] LABS: BUN/Creatinine Ratio 85
[2020-04-22 09:21] LABS: Band Neutrophils # (Manual) 0.1 K/mm3; Total Cells Counted 100
[2020-04-22 09:22] LABS: Platelet Clumps Few; Platelet Estimate Consistent w Auto; RBC Morphology Normal
[2020-04-22] MEDS: MAGIC MOUTHWASH 30ML PO SCH ×3 (09:53→22:33)
[2020-04-22] MEDS: DOCUSATE SODIUM 100 MG/10 ML ORAL LIQD FEEDTUBE SCH ×2 (09:54→22:37)
[2020-04-22] MEDS: METOPROLOL TARTRATE 25 MG TAB PO SCH ×2 (09:55→22:32)
[2020-04-22] MEDS: PREGABALIN 75 MG CAP PO SCH ×2 (09:55→22:33)
[2020-04-22] MEDS: GLYCOPYRROLATE 1 MG TAB PO SCH ×3 (09:56→22:33)
[2020-04-22] MEDS: LIDOCAINE 5% 1 EACH PATCH TD SCH (09:56)
[2020-04-22] MEDS: TAMSULOSIN 0.4 MG CAP PO SCH (09:56)
[2020-04-22] MEDS: BACLOFEN 10 MG TAB PO SCH ×2 (09:56→22:33)
[2020-04-22] MEDS: LANSOPRAZOLE 30 MG SOLUTAB FEEDTUBE SCH (09:56)
[2020-04-22] MEDS: SODIUM HYPOCHLORITE, DAKIN'S 1/2 STRENGTH (0.25%) 473 ML TOPICAL SOLN TP SCH ×2 (09:57→22:34)
--- NOTE | 2020-04-22 11:56 | Progress Note ---
Assessment and Plan Assessment and plan: --Acute hypoxic hypercapnic respiratory failure; S/p tracheostomy on ventilatory support etiology secondary to sepsis, ALS, multifocal pneumonia (Covid negative). Pulmonary following --ALS --Oral thrush Nystatin/Magic mouthwash swish and spit --Constipation; Patient already received Dulcolax suppository and Colace Received milk of magnesia, with relief --History of ALS - Stable --Elevated D-dimers; imaging studies negative for PE and DVT --Bilateral pneumonia; probably community-acquired Completed the treatment, continue supportive care --Sepsis secondary to pneumonia; completed the treatment resolved --Elevated troponin non-ST elevation TN type II Continue current management --Febrile illness; resolved ,secondary to pneumonia Complete antibiotics , resolved --DVT prophylaxis; Lovenox. 02/25/2020. CTA of the chest reveals no PE but does illustrate the bilateral pneumonia. Doppler ultrasound also negative for DVT. Blood cultures are pending. Await COVID-19 testing. Patient currently requiring BiPAP IPAP 24/EPAP 6 with FiO2 of 25%. Continue O2 and BiPAP as clinically indicated. ID and pulmonary consulted. 02/26/2020. Blood cultures are negative x48 hours and Covid testing negative as well. Continue antibiotics per ID recommendations for community-acquired bilate ral pneumonia. Cardiology consultation for elevated troponin. Check echocardiogram. 02/27/2020. Events of yesterday noted with asystole following V. fib arrest. Patient currently on AC mode rate 20, tidal volume 400, FiO2 50% and a PEEP of 6. Follow-up echocardiogram for elevated troponin. Cardiology suspects NSTEMI Type 2 in the setting of acute resp failure. Chest CTA and BLE Dopplers neg. we will discontinue Decadron given the Covid PCR is negative. 02/28/2020. I spoke with the sister Felisa Eli who is the power of bankruptcy attorney regarding advanced directives and she instructed me that she would like to continue with aggressive care at this time. I informed her of the guarded prognosis and high mortality/morbidity and she voiced understanding. Patient currently with AC mode ventilation rate 18, tidal volume 400, FiO2 40% and a PEEP of 6. Continue antibiotics for pneumonia. ID previously consulted. Also consult neurology with regards to ALS. 02/29/2020; patient is intubated and on CPAP patient is alert and oriented. Patient has ALS. Dr. Álvarez spoke with his sister and she wants aggressive care. Continue antibiotics for pneumonia. Neurology consulted for ALS. Progno sis poor 03/01/2020; patient is intubated and on CPAP, patient is alert and oriented. I spoke with his 2 sisters about the management plan. 03/02/2020; patient is intubated and on CPAP. Patient was alert and oriented. I spoke with Dr. mohr and he thinks patient may need mechanical ventilat ion, likely his disease progressed. Dr. Flowers did debridement this morning. 03/03/2020; patient is intubated and on CPAP, patient was on trilogy and BiPAP at home. Patient has ALS. on spontaneous breathing trial. Patient is alert and oriented but quadriplegic. Patient has severe bilateral pneumonia and is on cefepime and Vanco, ID is following. Patient has sacral decubitus ulcer and debridement was done by Dr. Flowers and there is no osteomyelitis. 03/05. Patient still on broad-spectrum antibiotics. Status post sacral decubitus ulcer debridements-no osteomyelitis. Patient is on AC 25/400/30% PEEP 5. No blood gas results today. 03/06. Plan for tracheostomy by surgery. Still remains intubated. Labs reviewed-sodium 150. Started on free water 200 every 8hr. trend sodium. 03/07: s/p trach placement today, patient placed back on mechanical ventilation with trach. Plan to resume tube feeding with NG tube. Continue to monitor vitals, monitor BMP. 03/08: Patient noted to have distended abdomen with low urinary output. Obtain bladder scan rule out urine retention, UA and urine culture, continue to follow clinically. 03/09: Patient noted to have low blood pressure with SBP as low as 70s. Ordered for 500 mils normal saline bolus. CT abdomen showed bladder outlet obstruction, urology consulted. 03/10: placed on drake by urology o/n, improved urine outpt. cont to monitor BMP. resuded TF - cont free water with TF. wean off from vent as tolerated. 03/11: Vitals stable. cont TF, wean off from vent as tolerated. start on 1/2 NS for hypernatremia - follow BMP 03/12: wean off vent as tolerated, plan for speech eval, cont Tf for now, cont iv fluid 03/13: unable to wean off from vent, unable to do speech therapy eval. will need PEG tube, cont supportive care for now, cont NG tube feeding 03/14: consulted GI for PEg placemnet, cont supportive care. remains on vent at night 03/15: Discussed with GI, plan for PEG tube placement possibly tomorrow. Continue supportive care and wean off from vent as tolerated. Hold Lovenox dose tonight. 03/16: family didnot consent for PEG placement yesterday. I spoke with the daughter today and she is now agreeable for PEG tube. I explained the necessity of the procedure with RN to the patient also and he nodded started on tube feeding, for the procedure. will cont supportive care. planned for PEG tube placement tomorrow. 03/17: s/p PEG placement today, patient tolerated well, cont supportive care 03/18: Started on tube feeding with new PEG tube, continue to wean off vent as tolerated 03/19: cont to monitor with supportive care, wean off vent as tolerated 03/20: Continue to wean off vent as tolerated -but failing weaning trial. Still requiring vent support at night. Currently on PEG tube for tube feed. 03/21. Pt with PSV trials with FiO@ 30%, PEEP 6, PS 10. Currently on PEG tube for tube feed. 03/22/2020. Continue PSV trials per pulmonary. Continue bronchodilators. Patient tolerating tube feedings. Continue Robinul for secretion control. 03/23/2020. Continue PSV trials per pulmonary. Continue bronchodilators. Continue Scopolamine and Robinul for secretion control. Trach care/airway management. Mobility protocols for pressure ulcer prophylaxis. LTAC evaluation per case management 03/24/2020. Continue PSV trials with current settings pressure support 10, PEEP 6 and FiO2 30%. Continue bronchodilators/nebulizer. Continue Scopolamine and Robinul for secretion control. Trach care/airway management. Mobility protocols for pressure ulcer prophylaxis. LTAC evaluation per case management 03/25/2020. Pulmonary to proceed with T-piece trials today. Continue bronchodi lators/nebulizer. Continue Scopolamine and Robinul for secretion control. Trach care/airway management. Mobility protocols for pressure ulcer prophylaxis. 03/26/2020. Patient currently with PSV 10/6 at FiO2 of 30%. Continue weaning and T-piece trials per protocol. Continue bronchodilators/nebulizer. Continue Scopolamine and Robinul for secretion control. Trach care/airway management. Mobility protocols for pressure ulcer prophylaxis. Continue tube feeding with aspiration precautions. 03/27/2020. Patient currently with PSV 01/31 at FiO2 of 30%. Continue weaning and T-piece trials per protocol. Continue bronchodilators/nebulizer. Continue Scopolamine and Robinul for secretion control. Trach care/airway management. Mobility protocols for pressure ulcer prophylaxis. Continue tube feeding with aspiration precautions. 03/28. Had temp 100.7F. He has been off antibiotics. Will send blood culture, ua, urine culture and chest xray. Had chest pain overnight and trop was elevated as well. Cardiology to evaluate 03/29. Has back pain due to position. He mentions his chest pain is positional. Has no other complaints. Still on mechanical ventilation 03/30. No chest pain today. Labs reviewed. Discussed chest pain with cardiology and team advised no further work up at this time. Can follow up with cardiology in the office after hospitalization 03/31. Lidocaine patch for lower back pain. 04/01. Discharge planning underway. CM notes reviewed. Discussed with daughter 04/02 - . CM trying to arrange discharge. Continue PSV trials. Discussed with patients significant other 04/04/2020; CM is working for discharge arrangement. Continue PSV trials. 04/05/2020; patient was seen and evaluated this morning and no change from baseline. Continue with PSV trials. Follow with sheet metal supervisor for discharge planning. 04/06/2020;patient was seen and evaluated this morning and no change from baseline. Continue with PSV trials. Follow with sheet metal supervisor for discharge planning. 04/07/2020; patient was seen and evaluated this morning and no change from baseline. Continue with PSV trials. Follow with sheet metal supervisor for discharge planning. 04/08/2020; patient is vent dependent. Discharge is per sheet metal supervisor. 04/09/2020 patient is vent dependent, possible LTAC placement 04/10/2020; tracheostomy on vent, vent dependent pending LTAC placement 04/11/2020; clinically no change, tracheostomy on ventilatory support, wean as tolerated, awaiting placement 04/12/2020; remains on ventilatory support, unable to wean, patient wants to see a speech therapist for sound box However we cannot try that as long as he is on ventilatory support, once he is weaned off vent We will consult speech therapist, plan of care reviewed with the patient and his nurse 04/14/2020; clinically no change, on ventilatory support, complains of constipation, milk of magnesia Closely monitor the patient and adjust the management as needed 04/15/2020; patient has some oral thrush on the tongue, will give Magic mouthwash/nystatin swish and spit Wean off vent as tolerated 04/16 patient is alert and oriented, unable to comprehend what he is trying to tell but appears to complain of some pain, no acute events overnight, all interdisciplinary notes reviewed. Waiting for LTAC versus fpc f acility placement 04/17/2020. Continue supportive care with mechanical ventilation. Patient currently on AC mode rate 10, tidal volume 400 FiO2 30% with a PEEP of 6. Discharge planning per case management. 04/18/2020. Patient remains on mechanical ventilation AC mode rate 10, tidal volume 400, FiO2 30% and PEEP of 6. Continue spontaneous breathing trials as tolerated. Previously, patient was considered for discharge home with skilled staff providing care for 12 hours 7 days/week. Continue discussed with case management discharge planning. 04/19/20. Patient remains on mechanical ventilation AC mode rate 10, tidal volume 400, FiO2 30% and PEEP of 6. Continue spontaneous breathing trials as tolerated. 04/20/2020. Patient remains on mechanical ventilation AC mode rate 10, tidal volume 400, FiO2 30% and PEEP of 6. Continue spontaneous breathing trials as tolerated. 04/21/2020. Patient remains on mechanical ventilation AC mode rate 10, tidal volume 400, FiO2 30% and PEEP of 6. Continue tracheostomy care, secretion control and airway management. Continue spontaneous breathing trials as tolerated. 04/22/2020. Patient remains on mechanical ventilation AC mode rate 10, tidal volume 400, FiO2 30% and PEEP of 6. Continue tracheostomy care, secretion control and airway management. Continue spontaneous breathing trials as tolerated. The high probability of a clinically significant, sudden or life threatening deterioration of the [cardiac and respiratory] system(s) required my full and direct attention, intervention and personal management. The aggregate critical care time was [31] minutes. 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 Fifi ent was on a trilogy machine for breathing 18/11. EMS arrived, patient had O2 sats in the 80s. EMS attempted to place patient on their CPAP machine, however patient did not tolerate. Patient was admitted to the ICU with diagnosis of acute hypoxic respiratory failure and placed on BiPAP. Patient initially tolerated but later deteriorated with respiratory status. CTA chest showed no PE but significant for bilateral pneumonia. Doppler ultrasound also negative for DVT. COVID-19 test ordered. Due to persistent hypoxia, patient was intubated on 02/26/2020 at 1500. Patient now on mechanical ventilation in the ICU s/p trach placement and now unable to wean off from the mechanical ventilation. Patient now status post PEG placement for tube feeding. Pending long-term placement -LTAC versus SNF Hospitalist Physical - Constitutional Vitals: Temp Pulse Resp BP Pulse Ox 98.5 F 111 H 20 105/66 100 04/22/20 08:00 04/22/20 11:00 04/22/20 11:00 04/22/20 11:00 04/22/20 11:00 General appearance: Present: no acute distress, cachectic - EENT Eyes: Present: PERRL, EOM intact ENT: hearing intact, clear oral mucosa, dentition normal - Neck Neck: Present: supple, normal ROM - Respiratory Respiratory effort: normal Respiratory: bilateral: CTA - Cardiovascular Rhythm: regular Heart Sounds: Present: S1 & S2. Absent: gallop, rub - Extremities Extremities: no ischemia, No edema, Full ROM - Abdominal General gastrointestinal: soft, non-tender, non-distended, normal bowel sounds - Integumentary Integumentary: Present: clear, warm, dry - Neurologic Neurologic: CNII-XII intact, moves all extremities HEART Score - HEART Score Troponin: Troponin T 0.090 ng/mL (0.00-0.029) H 03/28/20 17:17 Results - Labs CBC & Chem 7: 04/22/20 07:45 04/22/20 07:45 Labs: Laboratory Last Values WBC 7.6 K/mm3 (4.5-11.0) 04/22/20 07:45 RBC 3.77 M/mm3 (3.65-5.03) 04/22/20 07:45 Hgb 10.0 gm/dl (11.8-15.2) L 04/22/20 07:45 Hct 30.7 % (35.5-45.6) L 04/22/20 07:45 MCV 81 fl (84-94) L 04/22/20 07:45 MCH 27 pg (28-32) L 04/22/20 07:45 MCHC 33 % (32-34) 04/22/20 07:45 RDW 17.1 % (13.2-15.2) H 04/22/20 07:45 Plt Count 490 K/mm3 (140-440) H 04/22/20 07:45 Lymph % (Auto) 13.5 % (13.4-35.0) 04/21/20 05:55 [place] % (Auto) 9.2 % (0.0-7.3) H 04/21/20 05:55 Eos % (Auto) 1.4 % (0.0-4.3) 04/21/20 05:55 Baso % (Auto) 0.5 % (0.0-1.8) 04/21/20 05:55 Lymph # (Auto) 1.1 K/mm3 (1.2-5.4) L 04/21/20 05:55 [place] # (Auto) 0.8 K/mm3 (0.0-0.8) 04/21/20 05:55 Eos # (Auto) 0.1 K/mm3 (0.0-0.4) 04/21/20 05:55 Baso # (Auto) 0.0 K/mm3 (0.0-0.1) 04/21/20 05:55 Add Manual Diff Complete 04/22/20 07:45 Total Counted 100 04/22/20 07:45 Seg Neutrophils % 75.4 % (40.0-70.0) H 04/21/20 05:55 Seg Neuts % (Manual) 75.0 % (40.0-70.0) H 04/22/20 07:45 Band Neutrophils % 1.0 % 04/22/20 07:45 Lymphocytes % (Manual) 11.0 % (13.4-35.0) L 04/22/20 07:45 Reactive Lymphs % (Man) 1.0 % 04/22/20 07:45 Monocytes % (Manual) 9.0 % (0.0-7.3) H 04/22/20 07:45 Eosinophils % (Manual) 2.0 % (0.0-4.3) 04/22/20 07:45 Basophils % (Manual) 1.0 % (0.0-1.8) 04/22/20 07:45 Metamyelocytes % 3.0 % 04/12/20 09:07 Myelocytes % 0 % 03/28/20 10:28 Promyelocytes % 0 % 03/28/20 10:28 Blast Cells % 0 % 03/28/20 10:28 Nucleated RBC % Not Reportable 04/22/20 07:45 Seg Neutrophils # 6.3 K/mm3 (1.8-7.7) 04/21/20 05:55 Seg Neutrophils # Man 5.7 K/mm3 (1.8-7.7) 04/22/20 07:45 Band Neutrophils # 0.1 K/mm3 04/22/20 07:45 Lymphocytes # (Manual) 0.8 K/mm3 (1.2-5.4) L 04/22/20 07:45 Abs React Lymphs (Man) 0.1 K/mm3 04/22/20 07:45 Monocytes # (Manual) 0.7 K/mm3 (0.0-0.8) 04/22/20 07:45 Eosinophils # (Manual) 0.2 K/mm3 (0.0-0.4) 04/22/20 07:45 Basophils # (Manual) 0.1 K/mm3 (0.0-0.1) 04/22/20 07:45 Metamyelocytes # 0.0 K/mm3 04/22/20 07:45 Myelocytes # 0.0 K/mm3 04/22/20 07:45 Promyelocytes # 0.0 K/mm3 04/22/20 07:45 Blast Cells # 0.0 K/mm3 04/22/20 07:45 WBC Morphology Not Reportable 04/22/20 07:45 Hypersegmented Neuts Not Reportable 04/22/20 07:45 Hyposegmented Neuts Not Reportable 04/22/20 07:45 Hypogranular Neuts Not Reportable 04/22/20 07:45 Smudge Cells Not Reportable 04/22/20 07:45 Toxic Granulation Not Reportable 04/22/20 07:45 Toxic Vacuolation Not Reportable 04/22/20 07:45 Dohle Bodies Not Reportable 04/22/20 07:45 Pelger-Huet Anomaly Not Reportable 04/22/20 07:45 Robert Rods Not Reportable 04/22/20 07:45 Platelet Estimate Consistent w auto 04/22/20 07:45 Clumped Platelets Few 04/22/20 07:45 Plt Clumps, EDTA Not Reportable 04/22/20 07:45 Large Platelets Not Reportable 04/22/20 07:45 Giant Platelets Not Reportable 04/22/20 07:45 Platelet Satelliting Not Reportable 04/22/20 07:45 Plt Morphology Comment Not Reportable 04/22/20 07:45 RBC Morphology Normal 04/22/20 07:45 Dimorphic RBCs Not Reportable 04/22/20 07:45 Polychromasia Not Reportable 04/22/20 07:45 Hypochromasia Not Reportable 04/22/20 07:45 Poikilocytosis Not Reportable 04/22/20 07:45 Anisocytosis Not Reportable 04/22/20 07:45 Microcytosis Not Reportable 04/22/20 07:45 Macrocytosis Not Reportable 04/22/20 07:45 Spherocytes Not Reportable 04/22/20 07:45 Pappenheimer Bodies Not Reportable 04/22/20 07:45 Sickle Cells Not Reportable 04/22/20 07:45 Target Cells Not Reportable 04/22/20 07:45 Stomatocytes Few 03/17/20 04:40 Tear Drop Cells Not Reportable 04/22/20 07:45 Ovalocytes Not Reportable 04/22/20 07:45 Helmet Cells Not Reportable 04/22/20 07:45 Gregory-Arnegard Bodies Not Reportable 04/22/20 07:45 [place] Rings Not Reportable 04/22/20 07:45 Riaz Cells Not Reportable 04/22/20 07:45 Bite Cells Not Reportable 04/22/20 07:45 Crenated Cell Not Reportable 04/22/20 07:45 Elliptocytes Not Reportable 04/22/20 07:45 Acanthocytes (Spur) Not Reportable 04/22/20 07:45 Rouleaux Not Reportable 04/22/20 07:45 Hemoglobin C Crystals Not Reportable 04/22/20 07:45 Schistocytes Not Reportable 04/22/20 07:45 Malaria parasites Not Reportable 04/22/20 07:45 Colton Bodies Not Reportable 04/22/20 07:45 Hem Pathologist Commnt No 04/22/20 07:45 PT 15.6 Sec. (12.2-14.9) H 02/24/20 09:19 INR 1.21 (0.87-1.13) H 02/24/20 09:19 APTT 25.4 Sec. (24.2-36.6) 02/24/20 09:19 D-Dimer 1311.96 ng/mlDDU (0-234) H 02/24/20 09:19 ABG pH 7.371 (7.320-7.450) 03/08/20 12:34 POC ABG pCO2 63.1 mmHg (32.0-48.0) H 03/08/20 12:34 ABG pCO2 60.1 mm Hg 03/06/20 04:34 POC ABG pO2 90.5 mmHg (83-108) 03/08/20 12:34 ABG pO2 88.6 mm Hg (80.0-90.0) 03/06/20 04:34 POC ABG HCO3 35.7 03/08/20 12:34 ABG HCO3 37.9 mmol/L (20.0-26.0) H 03/06/20 04:34 ABG O2 Saturation 97.0 % (95.0-99.0) 03/06/20 04:34 ABG O2 Content 14.3 (0.0-44) 03/06/20 04:34 POC ABG Base Excess 8.7 03/08/20 12:34 ABG Base Excess 11.4 mmol/L (-2.0-3.0) H 03/06/20 04:34 ABG Hemoglobin 10.9 (12.0-17.5) L 03/08/20 12:34 ABG Oxyhemoglobin 95.9 (94-98) 03/08/20 12:34 ABG Carboxyhemoglobin 1.7 % (0.0-5.0) 03/06/20 04:34 ABG Methemoglobin 0.3 (0.0-1.5) 03/08/20 12:34 ABG Sodium 143.6 mmol/L (136.0-145.0) 03/08/20 12:34 ABG Potassium 3.8 mmol/L (3.40-4.50) 03/08/20 12:34 ABG Chloride 102.0 mmol/L (98-107) 03/08/20 12:34 ABG Glucose 176 mg/dL (65-95) H 03/08/20 12:34 Oxyhemoglobin 94.7 % (95.0-99.0) L 03/06/20 04:34 Carboxyhemoglobin 0.7 (0.5-1.5) 03/08/20 12:34 FiO2 30 03/08/20 12:34 Sodium 139 mmol/L (137-145) 04/22/20 07:45 Potassium 4.3 mmol/L (3.6-5.0) 04/22/20 07:45 Chloride 96.3 mmol/L (98-107) L 04/22/20 07:45 Carbon Dioxide 40 mmol/L (22-30) H 04/22/20 07:45 Anion Gap 7 mmol/L 04/22/20 07:45 BUN 17 mg/dL (9-20) 04/22/20 07:45 Creatinine < 0.2 mg/dL (0.8-1.3) L 04/22/20 07:45 Estimated GFR > 60 ml/min 04/22/20 07:45 BUN/Creatinine Ratio 85 % 04/22/20 07:45 Glucose 109 mg/dL (75-100) H 04/22/20 07:45 POC Glucose 104 mg/dL (70-105) 04/22/20 05:36 Lactic Acid 1.00 mmol/L (0.7-2.0) 02/24/20 12:07 Calcium 9.1 mg/dL (8.4-10.2) 04/22/20 07:45 Phosphorus 3.30 mg/dL (2.5-4.5) 03/29/20 14:35 Magnesium 1.90 mg/dL (1.7-2.3) 04/12/20 09:07 Ferritin 1715.0 ng/mL (30.0-300.0) H 02/24/20 10:01 Total Bilirubin 0.20 mg/dL (0.1-1.2) 04/12/20 09:07 AST 15 units/L (5-40) 04/12/20 09:07 ALT 15 units/L (7-56) 04/12/20 09:07 Alkaline Phosphatase 62 units/L (35-129) 04/12/20 09:07 Lactate Dehydrogenase 303 units/L (91-180) H 02/24/20 09:19 Total Creatine Kinase 47 units/L (55-170) L 03/28/20 17:17 CK-MB (CK-2) 2.2 ng/mL (0.0-4.0) 03/28/20 17:17 CK-MB (CK-2) Rel Index 4.6 (0-4) H 03/28/20 17:17 Troponin T 0.090 ng/mL (0.00-0.029) H 03/28/20 17:17 C-Reactive Protein 4.70 mg/dL (0.00-1.30) H 02/28/20 11:05 NT-Pro-B Natriuret Pep 48.30 pg/mL (0-900) 02/24/20 09:19 Total Protein 6.7 g/dL (6.3-8.2) 04/12/20 09:07 Albumin 2.7 g/dL (3.9-5) L 04/12/20 09:07 Albumin/Globulin Ratio 0.7 % 04/12/20 09:07 Prealbumin 0.090 g/L (0.200-0.400) L 02/28/20 12:54 Triglycerides 34 mg/dL (2-149) 03/22/20 18:00 Cholesterol 104 mg/dL (50-199) 03/22/20 18:00 LDL Cholesterol Direct 54 mg/dL (50-130) 03/22/20 18:00 HDL Cholesterol 40 mg/dL (40-59) 03/22/20 18:00 Cholesterol/HDL Ratio 2.60 % 03/22/20 18:00 Procalcitonin < 0.05 ng/mL (<0.15) 03/28/20 17:12 Arterial Blood Glucose 176 mg/dL (65-95) H 03/08/20 12:34 Arterial Blood Ionized Calcium 4.5 mg/dL (4.6-5.3) L 03/08/20 12:34 Urine Color Yellow (Yellow) 03/28/20 11:36 Urine Turbidity Hazy (Clear) 03/28/20 11:36 Urine pH 5.0 (5.0-7.0) 03/28/20 11:36 Ur Specific [place] 1.026 (1.003-1.030) 03/28/20 11:36 Urine Protein 100 mg/dl mg/dL (Negative) 03/28/20 11:36 Urine Glucose (UA) Neg mg/dL (Negative) 03/28/20 11:36 Urine Ketones Neg mg/dL (Negative) 03/28/20 11:36 Urine Blood Neg (Negative) 03/28/20 11:36 Urine Nitrite Neg (Negative) 03/28/20 11:36 Urine Bilirubin Neg (Negative) 03/28/20 11:36 Urine Urobilinogen 4.0 mg/dL (<2.0) 03/28/20 11:36 Ur Leukocyte Esterase Mod (Negative) 03/28/20 11:36 Urine WBC (Auto) 39.0 /HPF (0.0-6.0) H 03/28/20 11:36 Urine RBC (Auto) 16.0 /HPF (0.0-6.0) 03/28/20 11:36 U Epithel Cells (Auto) < 1.0 /HPF (0-13.0) 03/08/20 08:57 Urine Bacteria (Auto) 2+ /HPF (Negative) 03/28/20 11:36 Urine Mucus 3+ /HPF 03/28/20 11:36 Urine Yeast (Budding) 2+ /HPF 03/28/20 11:36 Vancomycin Trough 8.0 ug/mL (5.0-20.0) 03/04/20 08:59 Coronavirus (PCR) Negative (Negative) 02/25/20 09:03 - Diagnostic Impressions Diagnostic Impressions: Echocardiogram 02/26/20 10:41 Transthoracic Echocardiogram Indication: Elevated Trop BP: 116/75 HR: 85 Conclusions *Global left ventricular wall motion and contractility are within normal limits. *The estimated ejection fraction is 50-55%. *Abnormal left ventricular diastolic filling is observed, consistent with impaired relaxation. *There is no pericardial effusion. Findings Left Ventricle: The left ventricular chamber size is normal. Global left ventricular wall motion and contractility are within normal limits. Global left ventricular systolic function is normal. The estimated ejection fraction is 50-55%. Abnormal left ventricular diastolic filling is observed, consistent with impaired relaxation. Left Atrium: The left atrial chamber size is normal. Right Ventricle: The right ventricular cavity size is normal. Right Atrium: The right atrial cavity size is normal. Aortic Valve: Mild aortic leaflet calcification is visualized. There is no evidence of aortic regurgitation. Mitral Valve: The mitral valve leaflets are mildly thickened. There is no evidence of mitral regurgitation. Tricuspid Valve: The tricuspid valve leaflets are normal. There is trace tricuspid regurgitation. The right ventricular systolic pressure is calculated at 29 mmHg. Pulmonic Valve: The pulmonic valve is not well visualized. Pericardium: There is no pericardial effusion. Aorta: The aorta appears normal. Venous: The inferior vena cava is dilated. There is less than 50% respiratory change in the inferior vena cava dimension. Measurements Chambers 2D Name Value Normal Range IVSd (2D) 0.97 cm (0.6 - 1.1) LVPWd (2D) 0.93 cm (0.6 - 1.1) LVIDd (2D) 4 cm (3.7 - 5.6) LVIDs (2D) 2.73 cm (2 - 3.8) LV FS (2D) 31.67 % - EF Teichholz (2D) 60.23 % - Ao root diameter (2D) 3.51 cm (2 - 3.7) Volumes/Mass Name Value Normal Range LA ESV SP 4CH (A/L) 8.43 ml - LA ESV SP 2CH (A/L) 18.89 ml - LA ESV BP (A/L) 13.02 ml - LA ESV BP (A/L) index 8.8 ml/m2 - LA ESV SP 4CH (MOD) 7.22 ml - LA ESV SP 2CH (MOD) 18.15 ml - LA ESV BP (MOD) 11.47 ml - LA ESV BP (MOD) index 7.75 ml/m2 - Diastolic/Systolic Function Name Value Normal Range MV E-wave Vmax 0.51 m/sec - MV deceleration time 180.22 msec - MV A-wave Vmax 0.62 m/sec - MV E:A ratio 0.82 ratio - Aortic Valve Name Value Normal Range AV Vmax 1.17 m/sec - AV VTI 19.71 cm - AV peak gradient 5.44 mmHg - AV mean gradient 3.38 mmHg - LVOT diameter 2.26 cm - LVOT Vmax 0.89 m/sec - LVOT VTI 13.72 cm - LVOT peak gradient 3.17 mmHg - LVOT mean gradient 1.67 mmHg - SV LVOT 55.03 ml - SHARAD (continuity Vmax) 3.06 cm2 - SHARAD (continuity VTI) 2.79 cm2 - Tricuspid Valve Name Value Normal Range TR Vmax 2.3 m/sec - TR peak gradient 21 mmHg - RAP 8 mmHg - RVSP 29 mmHg - IVC diameter 2.59 cm (1.2 - 2.3) Pulmonic Valve/Qp:Qs Name Value Normal Range PV acceleration time 68.51 msec - Drake/IV: Voiding Method Indwelling Catheter IV Catheter Type [Right Wrist] INT / Saline Lock IV Catheter Type [Left Hand] Peripheral IV IV Catheter Type [Right Hand] Peripheral IV IV Catheter Type [Left Wrist] Peripheral IV IV Catheter Type [Right Peripheral IV Forearm] IV Catheter Type [Right Triple Lumen Cath Internal Jugular] IV Catheter Type [Left Forearm INT / Saline Lock ] IV Catheter Type [Right Triple Lumen Cath Femoral] IV Catheter Type [Right INT / Saline Lock Antecubital] Active Medications - Current Medications Current Medications: Generic Name Dose Route Start Last Admin Trade Name Freq PRN Reason Stop Dose Admin Acetaminophen 650 mg 02/24/20 15:13 04/21/20 21:32 Tylenol PO 650 mg Q4H PRN Administration Pain, Mild (1-3) Albuterol 2.5 mg 02/24/20 15:13 Proventil IH Q4HRT PRN Shortness Of Breath Alprazolam 0.5 mg 03/30/20 14:19 04/22/20 02:20 Xanax PO 0.5 mg Q8H PRN Administration Anxiety Lipase/Protease/Amylase 1 each 02/26/20 11:[address] 10,500 Unit FEEDTUBE PRN PRN For Clogged Feeding Tube Baclofen 10 mg 04/03/20 12:00 04/22/20 09:56 Lioresal PO 10 mg BID ALISA Administration Bisacodyl 10 mg 03/12/20 18:00 04/12/20 09:26 Bisacodyl 10 Mg Rect Supp MN 10 mg QDAY PRN Administration Bowel Movement Docusate Sodium 100 mg 04/03/20 12:00 04/22/20 09:54 Colace FEEDTUBE 100 mg BID ALISA Administration Enoxaparin Sodium 40 mg 03/20/20 22:00 04/21/20 21:34 Enoxaparin 40 Mg/0.4 Ml Inj SUB-Q 40 mg QDAY@2200 ALISA Administration Protocol Glycopyrrolate 2 mg 04/16/20 20:00 04/22/20 09:56 Glycopyrrolate 1 Mg Tab PO 2 mg TID ALISA Administration Lansoprazole 30 mg 02/28/20 10:00 04/22/20 09:56 Prevacid Solutab FEEDTUBE 30 mg QDAY ALISA Administration Lidocaine 1 each 03/31/20 10:00 04/22/20 09:56 Lidoderm 5% TD 1 each QDAY ALISA Administration Lidocaine HCl 15 ml 04/15/20 14:00 04/22/20 09:53 Magic Mouthwash 30ml PO 15 ml TID ALISA Administration Magnesium Hydroxide 30 ml 04/12/20 19:20 04/21/20 08:52 Magnesium Hydroxide (Mom) Oral Liqd Udc PO 30 ml Q4H PRN Administration Constipation Metoprolol Tartrate 12.5 mg 02/24/20 22:00 04/22/20 09:55 Metoprolol PO Not Given BID ALISA Morphine Sulfate 2 mg 02/29/20 16:42 04/22/20 09:55 Morphine IV 2 mg Q4H PRN Administration Pain, Moderate (4-6) Pregabalin 150 mg 04/03/20 12:00 04/22/20 09:55 Pregabalin PO 150 mg BID ALISA Administration Scopolamine 1 each 03/03/20 14:00 04/20/20 09:32 Transderm-Scop TD 1 each Q3D ALISA Administration Senna 17.2 mg 04/03/20 22:00 04/21/20 21:33 Senokot PO 17.2 mg QHS ALISA Administration Simple Syrup 15 ml 02/26/20 11:16 Simple Syrup FEEDTUBE PRN PRN Hypoglycemia Simple Syrup 30 ml 02/26/20 11:16 Simple Syrup FEEDTUBE PRN PRN Hypoglycemia Sodium Bicarbonate 325 mg 10/31/20 11:16 Sodium Bicarbonate FEEDTUBE PRN PRN For Clogged Feeding Tube Sodium Hypochlorite 1 applic 03/31/20 13:00 04/22/20 09:57 Dakin's Half Strength TP 1 applicatio BID ALISA Administration Tamsulosin HCl 0.4 mg 03/09/20 18:00 04/22/20 09:56 Tamsulosin 0.4 Mg Cap PO 0.4 mg QDAY ALISA Administration Tramadol HCl 50 mg 04/22/20 11:35 Tramadol 50 Mg Tab PO Q6H PRN Pain, Moderate (4-6) Zolpidem Tartrate 10 mg 03/31/20 20:15 04/21/20 21:32 Ambien PO 10 mg QHS PRN Administration Sleep Nutrition/Malnutrition Assess - Dietary Evaluation Nutrition/Malnutrition Findings: Nutrition Notes Start: 02/26/20 10:40 Freq: Status: Active Protocol: Document 04/18/20 12:15 AB (Rec: 04/18/20 12:16 AB [id number]) Co-Sign 04/18/20 12:15 LP Nutrition Notes Initial or Follow up Brief Note Current Diagnosis Decubitus(Pressure Ulcer), Sepsis,Respiratory Failure Other Pertinent Diagnosis COVID-19 (-), ALS, pneumonia, Hip/buttock PU Current Diet Vital AF 1.2 at 75ml/hr (goal rate) Subjective/Other Information F/U for TF tolerance. Per RN, pt TF is running at goal and tolerating it. Nutrition Intervention Follow-Up By: 04/25/20 Additional Comments F/U for TF tolerance
[2020-04-22] MEDS: traMADol 50 MG TAB PO PRN (13:24)
--- NOTE | 2020-04-22 19:13 | Progress Note ---
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 Respiratory Failure Severe Sepsis with Shock Bilateral Pneumonia (Possible aspiration) History of ALS on Trilogy Oropharyngeal Dysphagia PUI-COVID Acute toxic metabolic encephalopathy Elevated D-dimer Elevated troponin possibly type 2 ischemia - discharge planning still ongoing for home ventilator - continue home meds re: chronic pain (Baclofen, Lyrica) - continue daily SBT's as tolerated; t-piece trial attempts as tolerated (PSV if fails) - repeat CXR prn +/- bronchoscopy for mucus plugging / large volume atelectasis - continue psychoactive meds for anxiolysis - continue Robinul & scopolamine for secretion control - prn electrolytes and optimize K+ & Mg 2+ for best respiratory muscle function - wound care per RN/WCN - continue Scopolamine patch for secretion control - wean supplemental oxygen for target O2 sat's > 90% acutely - bronchodilators with pulmonary hygiene per RT - VAP bundle addressed - continue lung protective strategies - continue bronchodilators with pulmonary hygiene per RT - wean per pulmonary driven protocols otherwise - sedation prn for target RASS 0 to -1 - s/p empiric antiinfectives per ID rec's (Rocephin and Zithromax) - s/p COVID-19 isolation (Airborne & Contact) - s/p Dexamethasone - enteral nutrition at goal rate as tolerated - accuchecks with glycemic control per SSI (While critically ill target blood glucose of 140-180 mg/dL; avoid hypoglycemia) - avoid nephrotoxins, renally dose all medications - avoid benzodiazepine's, reduce the possibility of delirium - prn analgesia per CPOT score - Maintenance of sleep-wake cycle, avoid delirium - aspiration precautions - G.I. & VTE prophylaxis - PT/OT/ROM exercises - mobility protocols for pressure ulcer prophylaxis - Monitor hemodynamics closely - continue other care per attending / other consultants - discharge planning ongoing concurrently .... Re-evaluate in am & prn CONDITION: CRITICAL PROGNOSIS: GUARDED CODE STATUS: FULL CODE The high probability of a clinically significant, sudden or life-threatening deterioration of the [respiratory, cardiovascular & neurologic] system(s) required my full and direct attention, intervention and personal management. The aggregate critical care time was [33] minutes without overlap. Time includes spent on; [x] Data Review and interpretation [x] Patient assessment and monitoring of vital signs [x] Documentation [x] Medication orders and management Subjective Date of service: 04/22/20 Principal diagnosis: Ac on Ch Hypercapnic & hypoxemic Resp Failure; Severe Sepsis; Jamar PNA; ALS Interval history: Patient is seen today for: Acute on Chronic Hypercapnic & hypoxemic Respiratory Failure; Severe Sepsis with Shock; Bilateral Pneumonia (Possible aspiration); History of ALS on Trilogy; PUI-COVID; Acute toxic metabolic encephalopathy Seen and examined at bedside; 24hour events reviewed; nursing and respiratory care staff consulted; no adverse overnight events reported to me; resting in bed; remains on MVS; denies acute chest pains or palpitations; No N/V/F/C; still not tolerating weaning Objective Vital Signs - 12hr 04/22/20 04/22/20 04/22/20 08:00 08:15 09:00 Temperature 98.5 F Pulse Rate 104 H 101 H 104 H Respiratory 13 10 L Rate Blood Pressure 106/74 106/74 96/66 O2 Sat by Pulse 100 100 100 Oximetry O2 Sat by Pulse 100 Oximetry [ Assessment] 04/22/20 04/22/20 04/22/20 10:00 11:00 12:00 Temperature 98.6 F Pulse Rate 101 H 111 H 114 H Respiratory 12 20 19 Rate Blood Pressure 100/71 105/66 100/71 O2 Sat by Pulse 96 100 100 Oximetry O2 Sat by Pulse Oximetry [ Assessment] 04/22/20 04/22/20 04/22/20 12:53 13:00 14:00 Temperature Pulse Rate 105 H 104 H 106 H Respiratory 12 12 Rate Blood Pressure 100/71 101/69 97/69 O2 Sat by Pulse 100 98 99 Oximetry O2 Sat by Pulse Oximetry [ Assessment] 04/22/20 04/22/20 15:00 16:00 Temperature Pulse Rate 104 H 96 H Respiratory 15 17 Rate Blood Pressure 102/70 92/67 O2 Sat by Pulse 100 Oximetry O2 Sat by Pulse Oximetry [ Assessment] Constitutional: no acute distress, other (thin middle aged male with normal respiratory effort at rest on MVS) Eyes: non-icteric ENT: oropharynx moist, other (S/P Tracheostomy) Neck: supple, no lymphadenopathy, no JVD Effort: mildly labored Ascultation: Bilateral: clear, diminished breath sounds Percussion: Bilateral: not dull Cardiovascular: regular rate and rhythm, other (S1,S2, no murmurs) Gastrointestinal: normoactive bowel sounds, soft, non-tender, non-distended, other (+ distended but non tender suprapubis) Integumentary: normal, decubitus ulcer (sacral / gluteal) Extremities: no cyanosis, no edema, pulses normal, other (atrophic looking limbs) Neurologic: pupils equal and round, other (motor strength in extremities 1-2/5, awake, alert, mouths words to make needs known) Psychiatric: mood appropriate, affect normal CBC and BMP: 04/23/20 04:28 04/23/20 04:28 ABG, PT/INR, D-dimer: ABG ABG pH 7.371 (7.320-7.450) 03/08/20 12:34 POC ABG pCO2 63.1 mmHg (32.0-48.0) H 03/08/20 12:34 ABG pCO2 60.1 mm Hg 03/06/20 04:34 POC ABG pO2 90.5 mmHg (83-108) 03/08/20 12:34 ABG pO2 88.6 mm Hg (80.0-90.0) 03/06/20 04:34 POC ABG HCO3 35.7 03/08/20 12:34 ABG O2 Saturation 97.0 % (95.0-99.0) 03/06/20 04:34 PT/INR, D-dimer PT 15.6 Sec. (12.2-14.9) H 02/24/20 09:19 INR 1.21 (0.87-1.13) H 02/24/20 09:19 D-Dimer 1311.96 ng/mlDDU (0-234) H 02/24/20 09:19 Abnormal lab findings: Abnormal Labs 02/24/20 02/24/20 02/24/20 09:19 09:19 09:19 WBC 20.2 H RBC 5.05 H Hgb Hct MCV MCH RDW 15.3 H Plt Count Lymph % (Auto) [place] % (Auto) Lymph # (Auto) [place] # (Auto) Seg Neutrophils % Seg Neuts % (Manual) 86.0 H Lymphocytes % (Manual) 1.0 L Monocytes % (Manual) Basophils % (Manual) Seg Neutrophils # Seg Neutrophils # Man 17.4 H Lymphocytes # (Manual) 0.2 L Monocytes # (Manual) Eosinophils # (Manual) Basophils # (Manual) PT 15.6 H INR 1.21 H D-Dimer 1311.96 H ABG pH POC ABG pCO2 POC ABG pO2 ABG pO2 ABG HCO3 ABG O2 Saturation ABG Base Excess ABG Hemoglobin ABG Oxyhemoglobin ABG Potassium ABG Glucose Oxyhemoglobin Carboxyhemoglobin Sodium 135 L Potassium 3.2 L Chloride 92.2 L Carbon Dioxide BUN 6 L Creatinine < 0.2 L Glucose 124 H POC Glucose Calcium Ferritin Total Bilirubin 2.30 H Alkaline Phosphatase 132 H Lactate Dehydrogenase Total Creatine Kinase CK-MB (CK-2) Rel Index Troponin T 0.080 H C-Reactive Protein Total Protein Albumin 3.6 L Prealbumin LDL Cholesterol Direct 41 L Arterial Blood Glucose Arterial Blood Ionized Calcium Urine WBC (Auto) 02/24/20 02/24/20 02/24/20 09:19 09:58 10:01 WBC RBC Hgb Hct MCV MCH RDW Plt Count Lymph % (Auto) [place] % (Auto) Lymph # (Auto) [place] # (Auto) Seg Neutrophils % Seg Neuts % (Manual) Lymphocytes % (Manual) Monocytes % (Manual) Basophils % (Manual) Seg Neutrophils # Seg Neutrophils # Man Lymphocytes # (Manual) Monocytes # (Manual) Eosinophils # (Manual) Basophils # (Manual) PT INR D-Dimer ABG pH 7.176 L* POC ABG pCO2 POC ABG pO2 ABG pO2 91.2 H ABG HCO3 ABG O2 Saturation ABG Base Excess -4.6 L ABG Hemoglobin ABG Oxyhemoglobin ABG Potassium ABG Glucose Oxyhemoglobin 92.6 L Carboxyhemoglobin Sodium Potassium Chloride Carbon Dioxide BUN Creatinine Glucose POC Glucose Calcium Ferritin 1715.0 H Total Bilirubin Alkaline Phosphatase Lactate Dehydrogenase 303 H Total Creatine Kinase CK-MB (CK-2) Rel Index Troponin T C-Reactive Protein 26.10 H Total Protein Albumin Prealbumin LDL Cholesterol Direct Arterial Blood Glucose Arterial Blood Ionized Calcium Urine WBC (Auto) 02/24/20 02/24/20 02/24/20 11:52 13:45 19:35 WBC RBC Hgb Hct MCV MCH RDW Plt Count Lymph % (Auto) [place] % (Auto) Lymph # (Auto) [place] # (Auto) Seg Neutrophils % Seg Neuts % (Manual) Lymphocytes % (Manual) Monocytes % (Manual) Basophils % (Manual) Seg Neutrophils # Seg Neutrophils # Man Lymphocytes # (Manual) Monocytes # (Manual) Eosinophils # (Manual) Basophils # (Manual) PT INR D-Dimer ABG pH 7.051 L* 7.300 L POC ABG pCO2 POC ABG pO2 ABG pO2 94.7 H 75.1 L ABG HCO3 18.0 L ABG O2 Saturation 93.5 L ABG Base Excess -6.8 L -7.8 L ABG Hemoglobin 13.2 L 11.9 L ABG Oxyhemoglobin ABG Potassium ABG Glucose Oxyhemoglobin 91.0 L 92.7 L Carboxyhemoglobin Sodium Potassium Chloride Carbon Dioxide BUN Creatinine Glucose POC Glucose Calcium Ferritin Total Bilirubin Alkaline Phosphatase Lactate Dehydrogenase Total Creatine Kinase CK-MB (CK-2) Rel Index Troponin T 0.034 H D C-Reactive Protein Total Protein Albumin Prealbumin LDL Cholesterol Direct Arterial Blood Glucose Arterial Blood Ionized Calcium Urine WBC (Auto) 02/25/20 02/25/20 02/25/20 04:00 04:00 12:26 WBC 22.9 H RBC Hgb Hct MCV 83 L MCH 27 L RDW Plt Count 468 H Lymph % (Auto) [place] % (Auto) Lymph # (Auto) [place] # (Auto) Seg Neutrophils % Seg Neuts % (Manual) 89.0 H Lymphocytes % (Manual) 7.0 L Monocytes % (Manual) Basophils % (Manual) Seg Neutrophils # Seg Neutrophils # Man 20.4 H Lymphocytes # (Manual) Monocytes # (Manual) Eosinophils # (Manual) Basophils # (Manual) PT INR D-Dimer ABG pH POC ABG pCO2 POC ABG pO2 ABG pO2 ABG HCO3 ABG O2 Saturation ABG Base Excess ABG Hemoglobin ABG Oxyhemoglobin ABG Potassium 2.6 L ABG Glucose 142 H Oxyhemoglobin Carboxyhemoglobin Sodium Potassium 3.2 L Chloride Carbon Dioxide 18 L BUN Creatinine 0.2 L Glucose 114 H POC Glucose Calcium Ferritin Total Bilirubin Alkaline Phosphatase Lactate Dehydrogenase Total Creatine Kinase CK-MB (CK-2) Rel Index Troponin T C-Reactive Protein Total Protein Albumin 3.5 L Prealbumin LDL Cholesterol Direct Arterial Blood Glucose 142 H Arterial Blood Ionized Calcium Urine WBC (Auto) 02/26/20 02/26/20 02/26/20 15:58 17:00 23:43 WBC RBC Hgb Hct MCV MCH RDW Plt Count Lymph % (Auto) [place] % (Auto) Lymph # (Auto) [place] # (Auto) Seg Neutrophils % Seg Neuts % (Manual) Lymphocytes % (Manual) Monocytes % (Manual) Basophils % (Manual) Seg Neutrophils # Seg Neutrophils # Man Lymphocytes # (Manual) Monocytes # (Manual) Eosinophils # (Manual) Basophils # (Manual) PT INR D-Dimer ABG pH 7.502 H POC ABG pCO2 POC ABG pO2 213.6 H ABG pO2 ABG HCO3 ABG O2 Saturation ABG Base Excess ABG Hemoglobin ABG Oxyhemoglobin 99.2 H ABG Potassium 2.9 L ABG Glucose 160 H Oxyhemoglobin Carboxyhemoglobin 0.4 L Sodium Potassium Chloride Carbon Dioxide BUN Creatinine Glucose POC Glucose 189 H 120 H Calcium Ferritin Total Bilirubin Alkaline Phosphatase Lactate Dehydrogenase Total Creatine Kinase CK-MB (CK-2) Rel Index Troponin T C-Reactive Protein Total Protein Albumin Prealbumin LDL Cholesterol Direct Arterial Blood Glucose 160 H Arterial Blood Ionized Calcium 4.5 L Urine WBC (Auto) 02/27/20 02/27/20 02/27/20 05:00 07:04 17:45 WBC RBC Hgb Hct MCV MCH RDW Plt Count Lymph % (Auto) [place] % (Auto) Lymph # (Auto) [place] # (Auto) Seg Neutrophils % Seg Neuts % (Manual) Lymphocytes % (Manual) Monocytes % (Manual) Basophils % (Manual) Seg Neutrophils # Seg Neutrophils # Man Lymphocytes # (Manual) Monocytes # (Manual) Eosinophils # (Manual) Basophils # (Manual) PT INR D-Dimer ABG pH 7.524 H POC ABG pCO2 POC ABG pO2 ABG pO2 ABG HCO3 ABG O2 Saturation ABG Base Excess ABG Hemoglobin ABG Oxyhemoglobin ABG Potassium 3.0 L ABG Glucose 143 H Oxyhemoglobin Carboxyhemoglobin Sodium Potassium Chloride Carbon Dioxide BUN Creatinine Glucose POC Glucose 154 H 175 H Calcium Ferritin Total Bilirubin Alkaline Phosphatase Lactate Dehydrogenase Total Creatine Kinase CK-MB (CK-2) Rel Index Troponin T C-Reactive Protein Total Protein Albumin Prealbumin LDL Cholesterol Direct Arterial Blood Glucose 143 H Arterial Blood Ionized Calcium Urine WBC (Auto) 02/27/20 02/28/20 02/28/20 Unknown 00:21 04:15 WBC 18.7 H RBC Hgb Hct MCV MCH RDW Plt Count Lymph % (Auto) 8.7 L [place] % (Auto) Lymph # (Auto) [place] # (Auto) 1.2 H Seg Neutrophils % 84.6 H Seg Neuts % (Manual) Lymphocytes % (Manual) Monocytes % (Manual) Basophils % (Manual) Seg Neutrophils # 15.9 H Seg Neutrophils # Man Lymphocytes # (Manual) Monocytes # (Manual) Eosinophils # (Manual) Basophils # (Manual) PT INR D-Dimer ABG pH POC ABG pCO2 POC ABG pO2 ABG pO2 ABG HCO3 ABG O2 Saturation ABG Base Excess ABG Hemoglobin ABG Oxyhemoglobin ABG Potassium ABG Glucose Oxyhemoglobin Carboxyhemoglobin Sodium Potassium 2.9 L* Chloride Carbon Dioxide 33 H D BUN Creatinine < 0.2 L Glucose 157 H POC Glucose 134 H Calcium Ferritin Total Bilirubin Alkaline Phosphatase Lactate Dehydrogenase Total Creatine Kinase CK-MB (CK-2) Rel Index Troponin T C-Reactive Protein Total Protein Albumin Prealbumin LDL Cholesterol Direct Arterial Blood Glucose Arterial Blood Ionized Calcium Urine WBC (Auto) 02/28/20 02/28/20 02/28/20 04:15 05:16 05:39 WBC RBC Hgb Hct MCV MCH RDW Plt Count Lymph % (Auto) [place] % (Auto) Lymph # (Auto) [place] # (Auto) Seg Neutrophils % Seg Neuts % (Manual) Lymphocytes % (Manual) Monocytes % (Manual) Basophils % (Manual) Seg Neutrophils # Seg Neutrophils # Man Lymphocytes # (Manual) Monocytes # (Manual) Eosinophils # (Manual) Basophils # (Manual) PT INR D-Dimer ABG pH POC ABG pCO2 POC ABG pO2 ABG pO2 142.9 H ABG HCO3 34.1 H ABG O2 Saturation ABG Base Excess 8.3 H ABG Hemoglobin ABG Oxyhemoglobin ABG Potassium ABG Glucose Oxyhemoglobin Carboxyhemoglobin Sodium 151 H Potassium Chloride Carbon Dioxide 32 H BUN Creatinine 0.2 L Glucose 167 H POC Glucose 138 H Calcium Ferritin Total Bilirubin Alkaline Phosphatase Lactate Dehydrogenase Total Creatine Kinase CK-MB (CK-2) Rel Index Troponin T C-Reactive Protein Total Protein Albumin Prealbumin LDL Cholesterol Direct Arterial Blood Glucose Arterial Blood Ionized Calcium Urine WBC (Auto) 02/28/20 02/28/20 02/28/20 11:05 11:33 12:54 WBC RBC Hgb Hct MCV MCH RDW Plt Count Lymph % (Auto) [place] % (Auto) Lymph # (Auto) [place] # (Auto) Seg Neutrophils % Seg Neuts % (Manual) Lymphocytes % (Manual) Monocytes % (Manual) Basophils % (Manual) Seg Neutrophils # Seg Neutrophils # Man Lymphocytes # (Manual) Monocytes # (Manual) Eosinophils # (Manual) Basophils # (Manual) PT INR D-Dimer ABG pH POC ABG pCO2 POC ABG pO2 ABG pO2 ABG HCO3 ABG O2 Saturation ABG Base Excess ABG Hemoglobin ABG Oxyhemoglobin ABG Potassium ABG Glucose Oxyhemoglobin Carboxyhemoglobin Sodium Potassium Chloride Carbon Dioxide BUN Creatinine Glucose POC Glucose 160 H Calcium Ferritin Total Bilirubin Alkaline Phosphatase Lactate Dehydrogenase Total Creatine Kinase CK-MB (CK-2) Rel Index Troponin T C-Reactive Protein 4.70 H Total Protein Albumin Prealbumin 0.090 L LDL Cholesterol Direct Arterial Blood Glucose Arterial Blood Ionized Calcium Urine WBC (Auto) 02/28/20 02/29/20 02/29/20 17:34 00:44 04:05 WBC 19.6 H RBC Hgb Hct MCV MCH 27 L RDW 15.4 H Plt Count Lymph % (Auto) [place] % (Auto) Lymph # (Auto) [place] # (Auto) Seg Neutrophils % Seg Neuts % (Manual) 86.0 H Lymphocytes % (Manual) 7.0 L Monocytes % (Manual) Basophils % (Manual) Seg Neutrophils # Seg Neutrophils # Man 16.9 H Lymphocytes # (Manual) Monocytes # (Manual) 1.2 H Eosinophils # (Manual) Basophils # (Manual) PT INR D-Dimer ABG pH POC ABG pCO2 POC ABG pO2 ABG pO2 ABG HCO3 ABG O2 Saturation ABG Base Excess ABG Hemoglobin ABG Oxyhemoglobin ABG Potassium ABG Glucose Oxyhemoglobin Carboxyhemoglobin Sodium Potassium Chloride Carbon Dioxide BUN Creatinine Glucose POC Glucose 136 H 156 H Calcium Ferritin Total Bilirubin Alkaline Phosphatase Lactate Dehydrogenase Total Creatine Kinase CK-MB (CK-2) Rel Index Troponin T C-Reactive Protein Total Protein Albumin Prealbumin LDL Cholesterol Direct Arterial Blood Glucose Arterial Blood Ionized Calcium Urine WBC (Auto) 02/29/20 02/29/20 02/29/20 04:05 05:14 05:33 WBC RBC Hgb Hct MCV MCH RDW Plt Count Lymph % (Auto) [place] % (Auto) Lymph # (Auto) [place] # (Auto) Seg Neutrophils % Seg Neuts % (Manual) Lymphocytes % (Manual) Monocytes % (Manual) Basophils % (Manual) Seg Neutrophils # Seg Neutrophils # Man Lymphocytes # (Manual) Monocytes # (Manual) Eosinophils # (Manual) Basophils # (Manual) PT INR D-Dimer ABG pH POC ABG pCO2 54.3 H POC ABG pO2 124.8 H ABG pO2 ABG HCO3 ABG O2 Saturation ABG Base Excess ABG Hemoglobin ABG Oxyhemoglobin ABG Potassium ABG Glucose 185 H Oxyhemoglobin Carboxyhemoglobin Sodium 148 H Potassium Chloride Carbon Dioxide 33 H BUN Creatinine < 0.2 L Glucose 173 H POC Glucose 152 H Calcium Ferritin Total Bilirubin Alkaline Phosphatase Lactate Dehydrogenase Total Creatine Kinase CK-MB (CK-2) Rel Index Troponin T C-Reactive Protein Total Protein Albumin Prealbumin LDL Cholesterol Direct Arterial Blood Glucose 185 H Arterial Blood Ionized Calcium Urine WBC (Auto) 03/01/20 03/01/20 03/01/20 00:00 03:45 04:33 WBC 23.1 H RBC Hgb Hct MCV MCH 27 L RDW 15.3 H Plt Count Lymph % (Auto) [place] % (Auto) Lymph # (Auto) [place] # (Auto) Seg Neutrophils % Seg Neuts % (Manual) 92.0 H Lymphocytes % (Manual) 6.0 L Monocytes % (Manual) Basophils % (Manual) Seg Neutrophils # Seg Neutrophils # Man 21.3 H Lymphocytes # (Manual) Monocytes # (Manual) Eosinophils # (Manual) 0.5 H Basophils # (Manual) PT INR D-Dimer ABG pH 7.492 H POC ABG pCO2 POC ABG pO2 ABG pO2 157.1 H ABG HCO3 32.3 H ABG O2 Saturation ABG Base Excess 8.1 H ABG Hemoglobin 13.2 L ABG Oxyhemoglobin ABG Potassium ABG Glucose Oxyhemoglobin Carboxyhemoglobin Sodium Potassium Chloride Carbon Dioxide BUN Creatinine Glucose POC Glucose 109 H Calcium Ferritin Total Bilirubin Alkaline Phosphatase Lactate Dehydrogenase Total Creatine Kinase CK-MB (CK-2) Rel Index Troponin T C-Reactive Protein Total Protein Albumin Prealbumin LDL Cholesterol Direct Arterial Blood Glucose Arterial Blood Ionized Calcium Urine WBC (Auto) 03/01/20 03/01/20 03/01/20 04:33 05:29 12:32 WBC RBC Hgb Hct MCV MCH RDW Plt Count Lymph % (Auto) [place] % (Auto) Lymph # (Auto) [place] # (Auto) Seg Neutrophils % Seg Neuts % (Manual) Lymphocytes % (Manual) Monocytes % (Manual) Basophils % (Manual) Seg Neutrophils # Seg Neutrophils # Man Lymphocytes # (Manual) Monocytes # (Manual) Eosinophils # (Manual) Basophils # (Manual) PT INR D-Dimer ABG pH POC ABG pCO2 POC ABG pO2 ABG pO2 ABG HCO3 ABG O2 Saturation ABG Base Excess ABG Hemoglobin ABG Oxyhemoglobin ABG Potassium ABG Glucose Oxyhemoglobin Carboxyhemoglobin Sodium 146 H Potassium Chloride Carbon Dioxide 32 H BUN Creatinine < 0.2 L Glucose 120 H POC Glucose 120 H 128 H Calcium Ferritin Total Bilirubin Alkaline Phosphatase Lactate Dehydrogenase Total Creatine Kinase CK-MB (CK-2) Rel Index Troponin T C-Reactive Protein Total Protein Albumin Prealbumin LDL Cholesterol Direct Arterial Blood Glucose Arterial Blood Ionized Calcium Urine WBC (Auto) 03/01/20 03/01/20 03/02/20 17:38 23:46 06:13 WBC RBC Hgb Hct MCV MCH RDW Plt Count Lymph % (Auto) [place] % (Auto) Lymph # (Auto) [place] # (Auto) Seg Neutrophils % Seg Neuts % (Manual) Lymphocytes % (Manual) Monocytes % (Manual) Basophils % (Manual) Seg Neutrophils # Seg Neutrophils # Man Lymphocytes # (Manual) Monocytes # (Manual) Eosinophils # (Manual) Basophils # (Manual) PT INR D-Dimer ABG pH POC ABG pCO2 POC ABG pO2 ABG pO2 ABG HCO3 ABG O2 Saturation ABG Base Excess ABG Hemoglobin ABG Oxyhemoglobin ABG Potassium ABG Glucose Oxyhemoglobin Carboxyhemoglobin Sodium Potassium Chloride Carbon Dioxide BUN Creatinine Glucose POC Glucose 114 H 121 H 120 H Calcium Ferritin Total Bilirubin Alkaline Phosphatase Lactate Dehydrogenase Total Creatine Kinase CK-MB (CK-2) Rel Index Troponin T C-Reactive Protein Total Protein Albumin Prealbumin LDL Cholesterol Direct Arterial Blood Glucose Arterial Blood Ionized Calcium Urine WBC (Auto) 03/02/20 03/02/20 03/03/20 09:47 09:47 10:21 WBC 23.6 H RBC Hgb Hct MCV MCH RDW 15.3 H Plt Count 494 H Lymph % (Auto) [place] % (Auto) Lymph # (Auto) [place] # (Auto) Seg Neutrophils % Seg Neuts % (Manual) 85.0 H Lymphocytes % (Manual) 6.0 L Monocytes % (Manual) Basophils % (Manual) Seg Neutrophils # Seg Neutrophils # Man 20.1 H Lymphocytes # (Manual) Monocytes # (Manual) 1.7 H Eosinophils # (Manual) Basophils # (Manual) PT INR D-Dimer ABG pH POC ABG pCO2 POC ABG pO2 ABG pO2 ABG HCO3 ABG O2 Saturation ABG Base Excess ABG Hemoglobin ABG Oxyhemoglobin ABG Potassium 3.3 L ABG Glucose 158 H Oxyhemoglobin Carboxyhemoglobin Sodium Potassium Chloride Carbon Dioxide BUN Creatinine < 0.2 L Glucose 177 H POC Glucose Calcium Ferritin Total Bilirubin Alkaline Phosphatase Lactate Dehydrogenase Total Creatine Kinase CK-MB (CK-2) Rel Index Troponin T C-Reactive Protein Total Protein Albumin Prealbumin LDL Cholesterol Direct Arterial Blood Glucose 158 H Arterial Blood Ionized Calcium Urine WBC (Auto) 03/03/20 03/04/20 03/04/20 21:30 00:00 12:23 WBC RBC Hgb Hct MCV MCH RDW Plt Count Lymph % (Auto) [place] % (Auto) Lymph # (Auto) [place] # (Auto) Seg Neutrophils % Seg Neuts % (Manual) Lymphocytes % (Manual) Monocytes % (Manual) Basophils % (Manual) Seg Neutrophils # Seg Neutrophils # Man Lymphocytes # (Manual) Monocytes # (Manual) Eosinophils # (Manual) Basophils # (Manual) PT INR D-Dimer ABG pH 7.328 L POC ABG pCO2 POC ABG pO2 ABG pO2 68.4 L ABG HCO3 35.0 H ABG O2 Saturation 93.9 L ABG Base Excess 6.8 H ABG Hemoglobin 12.7 L ABG Oxyhemoglobin ABG Potassium ABG Glucose Oxyhemoglobin 91.9 L Carboxyhemoglobin Sodium Potassium Chloride Carbon Dioxide BUN Creatinine Glucose POC Glucose 187 H 163 H Calcium Ferritin Total Bilirubin Alkaline Phosphatase Lactate Dehydrogenase Total Creatine Kinase CK-MB (CK-2) Rel Index Troponin T C-Reactive Protein Total Protein Albumin Prealbumin LDL Cholesterol Direct Arterial Blood Glucose Arterial Blood Ionized Calcium Urine WBC (Auto) 03/04/20 03/04/20 03/05/20 18:15 21:30 06:02 WBC RBC Hgb Hct MCV MCH RDW Plt Count Lymph % (Auto) [place] % (Auto) Lymph # (Auto) [place] # (Auto) Seg Neutrophils % Seg Neuts % (Manual) Lymphocytes % (Manual) Monocytes % (Manual) Basophils % (Manual) Seg Neutrophils # Seg Neutrophils # Man Lymphocytes # (Manual) Monocytes # (Manual) Eosinophils # (Manual) Basophils # (Manual) PT INR D-Dimer ABG pH 7.297 L POC ABG pCO2 POC ABG pO2 ABG pO2 ABG HCO3 41.0 H ABG O2 Saturation ABG Base Excess 11.0 H ABG Hemoglobin 13.1 L ABG Oxyhemoglobin ABG Potassium ABG Glucose Oxyhemoglobin 94.5 L Carboxyhemoglobin Sodium Potassium Chloride Carbon Dioxide BUN Creatinine Glucose POC Glucose 192 H 127 H Calcium Ferritin Total Bilirubin Alkaline Phosphatase Lactate Dehydrogenase Total Creatine Kinase CK-MB (CK-2) Rel Index Troponin T C-Reactive Protein Total Protein Albumin Prealbumin LDL Cholesterol Direct Arterial Blood Glucose Arterial Blood Ionized Calcium Urine WBC (Auto) 03/05/20 03/05/20 03/06/20 12:09 16:42 00:24 WBC RBC Hgb Hct MCV MCH RDW Plt Count Lymph % (Auto) [place] % (Auto) Lymph # (Auto) [place] # (Auto) Seg Neutrophils % Seg Neuts % (Manual) Lymphocytes % (Manual) Monocytes % (Manual) Basophils % (Manual) Seg Neutrophils # Seg Neutrophils # Man Lymphocytes # (Manual) Monocytes # (Manual) Eosinophils # (Manual) Basophils # (Manual) PT INR D-Dimer ABG pH POC ABG pCO2 POC ABG pO2 ABG pO2 ABG HCO3 ABG O2 Saturation ABG Base Excess ABG Hemoglobin ABG Oxyhemoglobin ABG Potassium ABG Glucose Oxyhemoglobin Carboxyhemoglobin Sodium Potassium Chloride Carbon Dioxide BUN Creatinine Glucose POC Glucose 147 H 114 H 134 H Calcium Ferritin Total Bilirubin Alkaline Phosphatase Lactate Dehydrogenase Total Creatine Kinase CK-MB (CK-2) Rel Index Troponin T C-Reactive Protein Total Protein Albumin Prealbumin LDL Cholesterol Direct Arterial Blood Glucose Arterial Blood Ionized Calcium Urine WBC (Auto) 03/06/20 03/06/20 03/06/20 04:34 05:53 06:08 WBC 25.4 H RBC Hgb 10.5 L Hct 32.7 L MCV MCH 27 L RDW 15.3 H Plt Count 634 H Lymph % (Auto) [place] % (Auto) Lymph # (Auto) [place] # (Auto) Seg Neutrophils % Seg Neuts % (Manual) 88.0 H Lymphocytes % (Manual) 2.0 L Monocytes % (Manual) 8.0 H Basophils % (Manual) Seg Neutrophils # Seg Neutrophils # Man 22.4 H Lymphocytes # (Manual) 0.5 L Monocytes # (Manual) 2.0 H Eosinophils # (Manual) Basophils # (Manual) PT INR D-Dimer ABG pH POC ABG pCO2 POC ABG pO2 ABG pO2 ABG HCO3 37.9 H ABG O2 Saturation ABG Base Excess 11.4 H ABG Hemoglobin 10.6 L ABG Oxyhemoglobin ABG Potassium ABG Glucose Oxyhemoglobin 94.7 L Carboxyhemoglobin Sodium Potassium Chloride Carbon Dioxide BUN Creatinine Glucose POC Glucose 135 H Calcium Ferritin Total Bilirubin Alkaline Phosphatase Lactate Dehydrogenase Total Creatine Kinase CK-MB (CK-2) Rel Index Troponin T C-Reactive Protein Total Protein Albumin Prealbumin LDL Cholesterol Direct Arterial Blood Glucose Arterial Blood Ionized Calcium Urine WBC (Auto) 03/06/20 03/06/20 03/06/20 06:08 12:19 19:10 WBC RBC Hgb Hct MCV MCH RDW Plt Count Lymph % (Auto) [place] % (Auto) Lymph # (Auto) [place] # (Auto) Seg Neutrophils % Seg Neuts % (Manual) Lymphocytes % (Manual) Monocytes % (Manual) Basophils % (Manual) Seg Neutrophils # Seg Neutrophils # Man Lymphocytes # (Manual) Monocytes # (Manual) Eosinophils # (Manual) Basophils # (Manual) PT INR D-Dimer ABG pH POC ABG pCO2 POC ABG pO2 ABG pO2 ABG HCO3 ABG O2 Saturation ABG Base Excess ABG Hemoglobin ABG Oxyhemoglobin ABG Potassium ABG Glucose Oxyhemoglobin Carboxyhemoglobin Sodium 150 H D Potassium Chloride Carbon Dioxide 39 H D BUN 23 H Creatinine < 0.2 L Glucose 144 H POC Glucose 169 H 152 H Calcium Ferritin Total Bilirubin Alkaline Phosphatase Lactate Dehydrogenase Total Creatine Kinase CK-MB (CK-2) Rel Index Troponin T C-Reactive Protein Total Protein Albumin 3.3 L Prealbumin LDL Cholesterol Direct Arterial Blood Glucose Arterial Blood Ionized Calcium Urine WBC (Auto) 03/06/20 03/07/20 03/07/20 23:58 04:25 04:25 WBC 22.1 H RBC Hgb 10.9 L Hct 32.9 L MCV MCH RDW 15.5 H Plt Count 739 H Lymph % (Auto) 7.8 L [place] % (Auto) Lymph # (Auto) [place] # (Auto) 1.3 H Seg Neutrophils % 85.5 H Seg Neuts % (Manual) Lymphocytes % (Manual) Monocytes % (Manual) Basophils % (Manual) Seg Neutrophils # 18.9 H Seg Neutrophils # Man Lymphocytes # (Manual) Monocytes # (Manual) Eosinophils # (Manual) Basophils # (Manual) PT INR D-Dimer ABG pH POC ABG pCO2 POC ABG pO2 ABG pO2 ABG HCO3 ABG O2 Saturation ABG Base Excess ABG Hemoglobin ABG Oxyhemoglobin ABG Potassium ABG Glucose Oxyhemoglobin Carboxyhemoglobin Sodium 146 H Potassium Chloride Carbon Dioxide 37 H BUN Creatinine < 0.2 L Glucose 118 H POC Glucose 111 H Calcium Ferritin Total Bilirubin Alkaline Phosphatase Lactate Dehydrogenase Total Creatine Kinase CK-MB (CK-2) Rel Index Troponin T C-Reactive Protein Total Protein Albumin 3.7 L Prealbumin LDL Cholesterol Direct Arterial Blood Glucose Arterial Blood Ionized Calcium Urine WBC (Auto) 03/07/20 03/07/20 03/07/20 05:20 17:45 23:32 WBC RBC Hgb Hct MCV MCH RDW Plt Count Lymph % (Auto) [place] % (Auto) Lymph # (Auto) [place] # (Auto) Seg Neutrophils % Seg Neuts % (Manual) Lymphocytes % (Manual) Monocytes % (Manual) Basophils % (Manual) Seg Neutrophils # Seg Neutrophils # Man Lymphocytes # (Manual) Monocytes # (Manual) Eosinophils # (Manual) Basophils # (Manual) PT INR D-Dimer ABG pH POC ABG pCO2 POC ABG pO2 ABG pO2 ABG HCO3 ABG O2 Saturation ABG Base Excess ABG Hemoglobin ABG Oxyhemoglobin ABG Potassium ABG Glucose Oxyhemoglobin Carboxyhemoglobin Sodium Potassium Chloride Carbon Dioxide BUN Creatinine Glucose POC Glucose 113 H 124 H 210 H Calcium Ferritin Total Bilirubin Alkaline Phosphatase Lactate Dehydrogenase Total Creatine Kinase CK-MB (CK-2) Rel Index Troponin T C-Reactive Protein Total Protein Albumin Prealbumin LDL Cholesterol Direct Arterial Blood Glucose Arterial Blood Ionized Calcium Urine WBC (Auto) 03/08/20 03/08/20 03/08/20 05:35 06:43 06:43 WBC 28.9 H RBC 3.53 L Hgb 9.7 L Hct 30.3 L MCV MCH RDW 15.6 H Plt Count 578 H Lymph % (Auto) [place] % (Auto) Lymph # (Auto) [place] # (Auto) Seg Neutrophils % Seg Neuts % (Manual) 93.0 H Lymphocytes % (Manual) 4.0 L Monocytes % (Manual) Basophils % (Manual) Seg Neutrophils # Seg Neutrophils # Man 26.9 H Lymphocytes # (Manual) Monocytes # (Manual) Eosinophils # (Manual) Basophils # (Manual) PT INR D-Dimer ABG pH POC ABG pCO2 POC ABG pO2 ABG pO2 ABG HCO3 ABG O2 Saturation ABG Base Excess ABG Hemoglobin ABG Oxyhemoglobin ABG Potassium ABG Glucose Oxyhemoglobin Carboxyhemoglobin Sodium 146 H Potassium Chloride Carbon Dioxide 35 H BUN 34 H Creatinine 0.3 L D Glucose 125 H POC Glucose 147 H Calcium Ferritin Total Bilirubin Alkaline Phosphatase Lactate Dehydrogenase Total Creatine Kinase CK-MB (CK-2) Rel Index Troponin T C-Reactive Protein Total Protein 5.9 L Albumin 3.2 L Prealbumin LDL Cholesterol Direct Arterial Blood Glucose Arterial Blood Ionized Calcium Urine WBC (Auto) 03/08/20 03/08/20 03/08/20 08:57 11:14 12:34 WBC RBC Hgb Hct MCV MCH RDW Plt Count Lymph % (Auto) [place] % (Auto) Lymph # (Auto) [place] # (Auto) Seg Neutrophils % Seg Neuts % (Manual) Lymphocytes % (Manual) Monocytes % (Manual) Basophils % (Manual) Seg Neutrophils # Seg Neutrophils # Man Lymphocytes # (Manual) Monocytes # (Manual) Eosinophils # (Manual) Basophils # (Manual) PT INR D-Dimer ABG pH POC ABG pCO2 63.1 H POC ABG pO2 ABG pO2 ABG HCO3 ABG O2 Saturation ABG Base Excess ABG Hemoglobin 10.9 L ABG Oxyhemoglobin ABG Potassium ABG Glucose 176 H Oxyhemoglobin Carboxyhemoglobin Sodium Potassium Chloride Carbon Dioxide BUN Creatinine Glucose POC Glucose 171 H Calcium Ferritin Total Bilirubin Alkaline Phosphatase Lactate Dehydrogenase Total Creatine Kinase CK-MB (CK-2) Rel Index Troponin T C-Reactive Protein Total Protein Albumin Prealbumin LDL Cholesterol Direct Arterial Blood Glucose 176 H Arterial Blood Ionized Calcium 4.5 L Urine WBC (Auto) 10.0 H 03/08/20 03/08/20 03/09/20 18:02 23:43 05:49 WBC RBC Hgb Hct MCV MCH RDW Plt Count Lymph % (Auto) [place] % (Auto) Lymph # (Auto) [place] # (Auto) Seg Neutrophils % Seg Neuts % (Manual) Lymphocytes % (Manual) Monocytes % (Manual) Basophils % (Manual) Seg Neutrophils # Seg Neutrophils # Man Lymphocytes # (Manual) Monocytes # (Manual) Eosinophils # (Manual) Basophils # (Manual) PT INR D-Dimer ABG pH POC ABG pCO2 POC ABG pO2 ABG pO2 ABG HCO3 ABG O2 Saturation ABG Base Excess ABG Hemoglobin ABG Oxyhemoglobin ABG Potassium ABG Glucose Oxyhemoglobin Carboxyhemoglobin Sodium Potassium Chloride Carbon Dioxide BUN Creatinine Glucose POC Glucose 157 H 134 H 163 H Calcium Ferritin Total Bilirubin Alkaline Phosphatase Lactate Dehydrogenase Total Creatine Kinase CK-MB (CK-2) Rel Index Troponin T C-Reactive Protein Total Protein Albumin Prealbumin LDL Cholesterol Direct Arterial Blood Glucose Arterial Blood Ionized Calcium Urine WBC (Auto) 03/09/20 03/09/20 03/09/20 08:35 08:35 12:11 WBC 23.4 H RBC 3.36 L Hgb 9.3 L Hct 28.8 L MCV MCH RDW 15.9 H Plt Count 521 H Lymph % (Auto) [place] % (Auto) Lymph # (Auto) [place] # (Auto) Seg Neutrophils % Seg Neuts % (Manual) 87.0 H Lymphocytes % (Manual) 4.0 L Monocytes % (Manual) 9.0 H Basophils % (Manual) Seg Neutrophils # Seg Neutrophils # Man 20.4 H Lymphocytes # (Manual) 0.9 L Monocytes # (Manual) 2.1 H Eosinophils # (Manual) Basophils # (Manual) PT INR D-Dimer ABG pH POC ABG pCO2 POC ABG pO2 ABG pO2 ABG HCO3 ABG O2 Saturation ABG Base Excess ABG Hemoglobin ABG Oxyhemoglobin ABG Potassium ABG Glucose Oxyhemoglobin Carboxyhemoglobin Sodium 147 H Potassium Chloride Carbon Dioxide 37 H BUN 63 H Creatinine Glucose 154 H POC Glucose 128 H Calcium Ferritin Total Bilirubin Alkaline Phosphatase Lactate Dehydrogenase Total Creatine Kinase CK-MB (CK-2) Rel Index Troponin T C-Reactive Protein Total Protein Albumin Prealbumin LDL Cholesterol Direct Arterial Blood Glucose Arterial Blood Ionized Calcium Urine WBC (Auto) 03/09/20 03/10/20 03/10/20 17:51 00:25 05:41 WBC RBC Hgb Hct MCV MCH RDW Plt Count Lymph % (Auto) [place] % (Auto) Lymph # (Auto) [place] # (Auto) Seg Neutrophils % Seg Neuts % (Manual) Lymphocytes % (Manual) Monocytes % (Manual) Basophils % (Manual) Seg Neutrophils # Seg Neutrophils # Man Lymphocytes # (Manual) Monocytes # (Manual) Eosinophils # (Manual) Basophils # (Manual) PT INR D-Dimer ABG pH POC ABG pCO2 POC ABG pO2 ABG pO2 ABG HCO3 ABG O2 Saturation ABG Base Excess ABG Hemoglobin ABG Oxyhemoglobin ABG Potassium ABG Glucose Oxyhemoglobin Carboxyhemoglobin Sodium Potassium Chloride Carbon Dioxide BUN Creatinine Glucose POC Glucose 127 H 128 H 153 H Calcium Ferritin Total Bilirubin Alkaline Phosphatase Lactate Dehydrogenase Total Creatine Kinase CK-MB (CK-2) Rel Index Troponin T C-Reactive Protein Total Protein Albumin Prealbumin LDL Cholesterol Direct Arterial Blood Glucose Arterial Blood Ionized Calcium Urine WBC (Auto) 03/10/20 03/10/20 03/10/20 06:14 06:14 12:02 WBC 18.3 H RBC 3.45 L Hgb 9.5 L Hct 29.5 L MCV MCH RDW 16.1 H Plt Count 494 H Lymph % (Auto) [place] % (Auto) Lymph # (Auto) [place] # (Auto) Seg Neutrophils % Seg Neuts % (Manual) 95.0 H Lymphocytes % (Manual) 1.0 L Monocytes % (Manual) Basophils % (Manual) Seg Neutrophils # Seg Neutrophils # Man 17.4 H Lymphocytes # (Manual) 0.2 L Monocytes # (Manual) Eosinophils # (Manual) Basophils # (Manual) PT INR D-Dimer ABG pH POC ABG pCO2 POC ABG pO2 ABG pO2 ABG HCO3 ABG O2 Saturation ABG Base Excess ABG Hemoglobin ABG Oxyhemoglobin ABG Potassium ABG Glucose Oxyhemoglobin Carboxyhemoglobin Sodium 149 H Potassium Chloride Carbon Dioxide 35 H BUN 34 H Creatinine 0.2 L D Glucose 177 H POC Glucose 151 H Calcium Ferritin Total Bilirubin Alkaline Phosphatase Lactate Dehydrogenase Total Creatine Kinase CK-MB (CK-2) Rel Index Troponin T C-Reactive Protein Total Protein Albumin Prealbumin LDL Cholesterol Direct Arterial Blood Glucose Arterial Blood Ionized Calcium Urine WBC (Auto) 03/10/20 03/10/20 03/11/20 17:41 23:53 05:02 WBC RBC Hgb Hct MCV MCH RDW Plt Count Lymph % (Auto) [place] % (Auto) Lymph # (Auto) [place] # (Auto) Seg Neutrophils % Seg Neuts % (Manual) Lymphocytes % (Manual) Monocytes % (Manual) Basophils % (Manual) Seg Neutrophils # Seg Neutrophils # Man Lymphocytes # (Manual) Monocytes # (Manual) Eosinophils # (Manual) Basophils # (Manual) PT INR D-Dimer ABG pH POC ABG pCO2 POC ABG pO2 ABG pO2 ABG HCO3 ABG O2 Saturation ABG Base Excess ABG Hemoglobin ABG Oxyhemoglobin ABG Potassium ABG Glucose Oxyhemoglobin Carboxyhemoglobin Sodium Potassium Chloride Carbon Dioxide BUN Creatinine Glucose POC Glucose 168 H 142 H 146 H Calcium Ferritin Total Bilirubin Alkaline Phosphatase Lactate Dehydrogenase Total Creatine Kinase CK-MB (CK-2) Rel Index Troponin T C-Reactive Protein Total Protein Albumin Prealbumin LDL Cholesterol Direct Arterial Blood Glucose Arterial Blood Ionized Calcium Urine WBC (Auto) 03/11/20 03/11/20 03/11/20 11:30 14:01 14:01 WBC 19.7 H RBC 3.04 L Hgb 8.7 L Hct 25.8 L MCV MCH RDW 15.6 H Plt Count Lymph % (Auto) [place] % (Auto) Lymph # (Auto) [place] # (Auto) Seg Neutrophils % Seg Neuts % (Manual) Lymphocytes % (Manual) Monocytes % (Manual) Basophils % (Manual) Seg Neutrophils # Seg Neutrophils # Man Lymphocytes # (Manual) Monocytes # (Manual) Eosinophils # (Manual) Basophils # (Manual) PT INR D-Dimer ABG pH POC ABG pCO2 POC ABG pO2 ABG pO2 ABG HCO3 ABG O2 Saturation ABG Base Excess ABG Hemoglobin ABG Oxyhemoglobin ABG Potassium ABG Glucose Oxyhemoglobin Carboxyhemoglobin Sodium 151 H Potassium Chloride Carbon Dioxide 37 H BUN Creatinine < 0.2 L Glucose 171 H POC Glucose 248 H Calcium Ferritin Total Bilirubin Alkaline Phosphatase Lactate Dehydrogenase Total Creatine Kinase CK-MB (CK-2) Rel Index Troponin T C-Reactive Protein Total Protein Albumin Prealbumin LDL Cholesterol Direct Arterial Blood Glucose Arterial Blood Ionized Calcium Urine WBC (Auto) 03/11/20 03/11/20 03/12/20 17:09 23:52 04:39 WBC 19.9 H RBC 3.16 L Hgb 8.9 L Hct 27.5 L MCV MCH RDW 15.7 H Plt Count Lymph % (Auto) 6.8 L [place] % (Auto) Lymph # (Auto) [place] # (Auto) 1.2 H Seg Neutrophils % 86.0 H Seg Neuts % (Manual) Lymphocytes % (Manual) Monocytes % (Manual) Basophils % (Manual) Seg Neutrophils # 17.1 H Seg Neutrophils # Man Lymphocytes # (Manual) Monocytes # (Manual) Eosinophils # (Manual) Basophils # (Manual) PT INR D-Dimer ABG pH POC ABG pCO2 POC ABG pO2 ABG pO2 ABG HCO3 ABG O2 Saturation ABG Base Excess ABG Hemoglobin ABG Oxyhemoglobin ABG Potassium ABG Glucose Oxyhemoglobin Carboxyhemoglobin Sodium Potassium Chloride Carbon Dioxide BUN Creatinine Glucose POC Glucose 124 H 131 H Calcium Ferritin Total Bilirubin Alkaline Phosphatase Lactate Dehydrogenase Total Creatine Kinase CK-MB (CK-2) Rel Index Troponin T C-Reactive Protein Total Protein Albumin Prealbumin LDL Cholesterol Direct Arterial Blood Glucose Arterial Blood Ionized Calcium Urine WBC (Auto) 03/12/20 03/12/20 03/12/20 04:39 05:28 11:34 WBC RBC Hgb Hct MCV MCH RDW Plt Count Lymph % (Auto) [place] % (Auto) Lymph # (Auto) [place] # (Auto) Seg Neutrophils % Seg Neuts % (Manual) Lymphocytes % (Manual) Monocytes % (Manual) Basophils % (Manual) Seg Neutrophils # Seg Neutrophils # Man Lymphocytes # (Manual) Monocytes # (Manual) Eosinophils # (Manual) Basophils # (Manual) PT INR D-Dimer ABG pH POC ABG pCO2 POC ABG pO2 ABG pO2 ABG HCO3 ABG O2 Saturation ABG Base Excess ABG Hemoglobin ABG Oxyhemoglobin ABG Potassium ABG Glucose Oxyhemoglobin Carboxyhemoglobin Sodium 147 H Potassium Chloride Carbon Dioxide 40 H BUN Creatinine < 0.2 L Glucose 175 H POC Glucose 167 H 144 H Calcium Ferritin Total Bilirubin Alkaline Phosphatase Lactate Dehydrogenase Total Creatine Kinase CK-MB (CK-2) Rel Index Troponin T C-Reactive Protein Total Protein Albumin Prealbumin LDL Cholesterol Direct Arterial Blood Glucose Arterial Blood Ionized Calcium Urine WBC (Auto) 03/12/20 03/12/20 03/13/20 17:32 23:57 05:57 WBC RBC Hgb Hct MCV MCH RDW Plt Count Lymph % (Auto) [place] % (Auto) Lymph # (Auto) [place] # (Auto) Seg Neutrophils % Seg Neuts % (Manual) Lymphocytes % (Manual) Monocytes % (Manual) Basophils % (Manual) Seg Neutrophils # Seg Neutrophils # Man Lymphocytes # (Manual) Monocytes # (Manual) Eosinophils # (Manual) Basophils # (Manual) PT INR D-Dimer ABG pH POC ABG pCO2 POC ABG pO2 ABG pO2 ABG HCO3 ABG O2 Saturation ABG Base Excess ABG Hemoglobin ABG Oxyhemoglobin ABG Potassium ABG Glucose Oxyhemoglobin Carboxyhemoglobin Sodium Potassium Chloride Carbon Dioxide BUN Creatinine Glucose POC Glucose 141 H 137 H 161 H Calcium Ferritin Total Bilirubin Alkaline Phosphatase Lactate Dehydrogenase Total Creatine Kinase CK-MB (CK-2) Rel Index Troponin T C-Reactive Protein Total Protein Albumin Prealbumin LDL Cholesterol Direct Arterial Blood Glucose Arterial Blood Ionized Calcium Urine WBC (Auto) 03/13/20 03/13/20 03/13/20 12:28 14:14 18:39 WBC RBC Hgb Hct MCV MCH RDW Plt Count Lymph % (Auto) [place] % (Auto) Lymph # (Auto) [place] # (Auto) Seg Neutrophils % Seg Neuts % (Manual) Lymphocytes % (Manual) Monocytes % (Manual) Basophils % (Manual) Seg Neutrophils # Seg Neutrophils # Man Lymphocytes # (Manual) Monocytes # (Manual) Eosinophils # (Manual) Basophils # (Manual) PT INR D-Dimer ABG pH POC ABG pCO2 POC ABG pO2 ABG pO2 ABG HCO3 ABG O2 Saturation ABG Base Excess ABG Hemoglobin ABG Oxyhemoglobin ABG Potassium ABG Glucose Oxyhemoglobin Carboxyhemoglobin Sodium Potassium Chloride Carbon Dioxide 39 H BUN Creatinine < 0.2 L Glucose 129 H POC Glucose 130 H 125 H Calcium Ferritin Total Bilirubin Alkaline Phosphatase Lactate Dehydrogenase Total Creatine Kinase CK-MB (CK-2) Rel Index Troponin T C-Reactive Protein Total Protein Albumin Prealbumin LDL Cholesterol Direct Arterial Blood Glucose Arterial Blood Ionized Calcium Urine WBC (Auto) 03/13/20 03/14/20 03/14/20 23:33 05:24 08:07 WBC 16.8 H RBC 2.81 L Hgb 7.9 L Hct 23.9 L MCV MCH RDW 15.9 H Plt Count Lymph % (Auto) [place] % (Auto) Lymph # (Auto) [place] # (Auto) Seg Neutrophils % Seg Neuts % (Manual) 84.0 H Lymphocytes % (Manual) 10.0 L Monocytes % (Manual) Basophils % (Manual) Seg Neutrophils # Seg Neutrophils # Man 14.1 H Lymphocytes # (Manual) Monocytes # (Manual) Eosinophils # (Manual) Basophils # (Manual) PT INR D-Dimer ABG pH POC ABG pCO2 POC ABG pO2 ABG pO2 ABG HCO3 ABG O2 Saturation ABG Base Excess ABG Hemoglobin ABG Oxyhemoglobin ABG Potassium ABG Glucose Oxyhemoglobin Carboxyhemoglobin Sodium Potassium Chloride Carbon Dioxide BUN Creatinine Glucose POC Glucose 146 H 125 H Calcium Ferritin Total Bilirubin Alkaline Phosphatase Lactate Dehydrogenase Total Creatine Kinase CK-MB (CK-2) Rel Index Troponin T C-Reactive Protein Total Protein Albumin Prealbumin LDL Cholesterol Direct Arterial Blood Glucose Arterial Blood Ionized Calcium Urine WBC (Auto) 03/14/20 03/14/20 03/14/20 08:07 12:21 18:26 WBC RBC Hgb Hct MCV MCH RDW Plt Count Lymph % (Auto) [place] % (Auto) Lymph # (Auto) [place] # (Auto) Seg Neutrophils % Seg Neuts % (Manual) Lymphocytes % (Manual) Monocytes % (Manual) Basophils % (Manual) Seg Neutrophils # Seg Neutrophils # Man Lymphocytes # (Manual) Monocytes # (Manual) Eosinophils # (Manual) Basophils # (Manual) PT INR D-Dimer ABG pH POC ABG pCO2 POC ABG pO2 ABG pO2 ABG HCO3 ABG O2 Saturation ABG Base Excess ABG Hemoglobin ABG Oxyhemoglobin ABG Potassium ABG Glucose Oxyhemoglobin Carboxyhemoglobin Sodium Potassium Chloride 97.0 L Carbon Dioxide 37 H BUN Creatinine < 0.2 L Glucose 129 H POC Glucose 109 H 142 H Calcium 8.3 L Ferritin Total Bilirubin Alkaline Phosphatase Lactate Dehydrogenase Total Creatine Kinase CK-MB (CK-2) Rel Index Troponin T C-Reactive Protein Total Protein Albumin Prealbumin LDL Cholesterol Direct Arterial Blood Glucose Arterial Blood Ionized Calcium Urine WBC (Auto) 03/14/20 03/15/20 03/15/20 23:57 05:46 08:06 WBC 19.7 H RBC 3.29 L Hgb 9.1 L Hct 28.0 L MCV MCH RDW 15.9 H Plt Count Lymph % (Auto) [place] % (Auto) Lymph # (Auto) [place] # (Auto) Seg Neutrophils % Seg Neuts % (Manual) Lymphocytes % (Manual) Monocytes % (Manual) Basophils % (Manual) Seg Neutrophils # Seg Neutrophils # Man Lymphocytes # (Manual) Monocytes # (Manual) Eosinophils # (Manual) Basophils # (Manual) PT INR D-Dimer ABG pH POC ABG pCO2 POC ABG pO2 ABG pO2 ABG HCO3 ABG O2 Saturation ABG Base Excess ABG Hemoglobin ABG Oxyhemoglobin ABG Potassium ABG Glucose Oxyhemoglobin Carboxyhemoglobin Sodium Potassium Chloride Carbon Dioxide BUN Creatinine Glucose POC Glucose 157 H 118 H Calcium Ferritin Total Bilirubin Alkaline Phosphatase Lactate Dehydrogenase Total Creatine Kinase CK-MB (CK-2) Rel Index Troponin T C-Reactive Protein Total Protein Albumin Prealbumin LDL Cholesterol Direct Arterial Blood Glucose Arterial Blood Ionized Calcium Urine WBC (Auto) 03/15/20 03/15/20 03/15/20 08:06 12:44 18:09 WBC RBC Hgb Hct MCV MCH RDW Plt Count Lymph % (Auto) [place] % (Auto) Lymph # (Auto) [place] # (Auto) Seg Neutrophils % Seg Neuts % (Manual) Lymphocytes % (Manual) Monocytes % (Manual) Basophils % (Manual) Seg Neutrophils # Seg Neutrophils # Man Lymphocytes # (Manual) Monocytes # (Manual) Eosinophils # (Manual) Basophils # (Manual) PT INR D-Dimer ABG pH POC ABG pCO2 POC ABG pO2 ABG pO2 ABG HCO3 ABG O2 Saturation ABG Base Excess ABG Hemoglobin ABG Oxyhemoglobin ABG Potassium ABG Glucose Oxyhemoglobin Carboxyhemoglobin Sodium 136 L Potassium Chloride 93.6 L Carbon Dioxide 37 H BUN Creatinine < 0.2 L Glucose 132 H POC Glucose 151 H 164 H Calcium Ferritin Total Bilirubin Alkaline Phosphatase Lactate Dehydrogenase Total Creatine Kinase CK-MB (CK-2) Rel Index Troponin T C-Reactive Protein Total Protein Albumin Prealbumin LDL Cholesterol Direct Arterial Blood Glucose Arterial Blood Ionized Calcium Urine WBC (Auto) 03/15/20 03/16/20 03/16/20 23:26 05:39 11:58 WBC RBC Hgb Hct MCV MCH RDW Plt Count Lymph % (Auto) [place] % (Auto) Lymph # (Auto) [place] # (Auto) Seg Neutrophils % Seg Neuts % (Manual) Lymphocytes % (Manual) Monocytes % (Manual) Basophils % (Manual) Seg Neutrophils # Seg Neutrophils # Man Lymphocytes # (Manual) Monocytes # (Manual) Eosinophils # (Manual) Basophils # (Manual) PT INR D-Dimer ABG pH POC ABG pCO2 POC ABG pO2 ABG pO2 ABG HCO3 ABG O2 Saturation ABG Base Excess ABG Hemoglobin ABG Oxyhemoglobin ABG Potassium ABG Glucose Oxyhemoglobin Carboxyhemoglobin Sodium Potassium Chloride Carbon Dioxide BUN Creatinine Glucose POC Glucose 136 H 116 H 109 H Calcium Ferritin Total Bilirubin Alkaline Phosphatase Lactate Dehydrogenase Total Creatine Kinase CK-MB (CK-2) Rel Index Troponin T C-Reactive Protein Total Protein Albumin Prealbumin LDL Cholesterol Direct Arterial Blood Glucose Arterial Blood Ionized Calcium Urine WBC (Auto) 03/16/20 03/17/20 03/17/20 23:56 04:40 04:40 WBC 18.0 H RBC 3.33 L Hgb 9.5 L Hct 28.8 L MCV MCH RDW 16.4 H Plt Count 499 H Lymph % (Auto) [place] % (Auto) Lymph # (Auto) [place] # (Auto) Seg Neutrophils % Seg Neuts % (Manual) 82.0 H Lymphocytes % (Manual) 8.0 L Monocytes % (Manual) Basophils % (Manual) Seg Neutrophils # Seg Neutrophils # Man 14.8 H Lymphocytes # (Manual) Monocytes # (Manual) 1.3 H Eosinophils # (Manual) Basophils # (Manual) 0.2 H PT INR D-Dimer ABG pH POC ABG pCO2 POC ABG pO2 ABG pO2 ABG HCO3 ABG O2 Saturation ABG Base Excess ABG Hemoglobin ABG Oxyhemoglobin ABG Potassium ABG Glucose Oxyhemoglobin Carboxyhemoglobin Sodium Potassium Chloride 97.7 L Carbon Dioxide 32 H BUN Creatinine < 0.2 L Glucose 114 H POC Glucose 131 H Calcium Ferritin Total Bilirubin Alkaline Phosphatase Lactate Dehydrogenase Total Creatine Kinase CK-MB (CK-2) Rel Index Troponin T C-Reactive Protein Total Protein Albumin Prealbumin LDL Cholesterol Direct Arterial Blood Glucose Arterial Blood Ionized Calcium Urine WBC (Auto) 03/18/20 03/18/20 03/18/20 00:21 05:21 11:55 WBC RBC Hgb Hct MCV MCH RDW Plt Count Lymph % (Auto) [place] % (Auto) Lymph # (Auto) [place] # (Auto) Seg Neutrophils % Seg Neuts % (Manual) Lymphocytes % (Manual) Monocytes % (Manual) Basophils % (Manual) Seg Neutrophils # Seg Neutrophils # Man Lymphocytes # (Manual) Monocytes # (Manual) Eosinophils # (Manual) Basophils # (Manual) PT INR D-Dimer ABG pH POC ABG pCO2 POC ABG pO2 ABG pO2 ABG HCO3 ABG O2 Saturation ABG Base Excess ABG Hemoglobin ABG Oxyhemoglobin ABG Potassium ABG Glucose Oxyhemoglobin Carboxyhemoglobin Sodium Potassium Chloride Carbon Dioxide BUN Creatinine Glucose POC Glucose 124 H 138 H 119 H Calcium Ferritin Total Bilirubin Alkaline Phosphatase Lactate Dehydrogenase Total Creatine Kinase CK-MB (CK-2) Rel Index Troponin T C-Reactive Protein Total Protein Albumin Prealbumin LDL Cholesterol Direct Arterial Blood Glucose Arterial Blood Ionized Calcium Urine WBC (Auto) 03/18/20 03/18/20 03/19/20 17:03 23:58 05:24 WBC RBC Hgb Hct MCV MCH RDW Plt Count Lymph % (Auto) [place] % (Auto) Lymph # (Auto) [place] # (Auto) Seg Neutrophils % Seg Neuts % (Manual) Lymphocytes % (Manual) Monocytes % (Manual) Basophils % (Manual) Seg Neutrophils # Seg Neutrophils # Man Lymphocytes # (Manual) Monocytes # (Manual) Eosinophils # (Manual) Basophils # (Manual) PT INR D-Dimer ABG pH POC ABG pCO2 POC ABG pO2 ABG pO2 ABG HCO3 ABG O2 Saturation ABG Base Excess ABG Hemoglobin ABG Oxyhemoglobin ABG Potassium ABG Glucose Oxyhemoglobin Carboxyhemoglobin Sodium Potassium Chloride Carbon Dioxide BUN Creatinine Glucose POC Glucose 128 H 128 H 115 H Calcium Ferritin Total Bilirubin Alkaline Phosphatase Lactate Dehydrogenase Total Creatine Kinase CK-MB (CK-2) Rel Index Troponin T C-Reactive Protein Total Protein Albumin Prealbumin LDL Cholesterol Direct Arterial Blood Glucose Arterial Blood Ionized Calcium Urine WBC (Auto) 03/19/20 03/19/20 03/19/20 08:05 08:05 11:56 WBC 16.8 H RBC 3.36 L Hgb 9.4 L Hct 28.8 L MCV MCH RDW 17.4 H Plt Count 567 H Lymph % (Auto) 7.8 L [place] % (Auto) Lymph # (Auto) [place] # (Auto) 1.2 H Seg Neutrophils % 83.5 H Seg Neuts % (Manual) Lymphocytes % (Manual) Monocytes % (Manual) Basophils % (Manual) Seg Neutrophils # 14.1 H Seg Neutrophils # Man Lymphocytes # (Manual) Monocytes # (Manual) Eosinophils # (Manual) Basophils # (Manual) PT INR D-Dimer ABG pH POC ABG pCO2 POC ABG pO2 ABG pO2 ABG HCO3 ABG O2 Saturation ABG Base Excess ABG Hemoglobin ABG Oxyhemoglobin ABG Potassium ABG Glucose Oxyhemoglobin Carboxyhemoglobin Sodium Potassium Chloride Carbon Dioxide 36 H BUN Creatinine < 0.2 L Glucose 135 H POC Glucose 128 H Calcium Ferritin Total Bilirubin Alkaline Phosphatase Lactate Dehydrogenase Total Creatine Kinase CK-MB (CK-2) Rel Index Troponin T C-Reactive Protein Total Protein Albumin Prealbumin LDL Cholesterol Direct Arterial Blood Glucose Arterial Blood Ionized Calcium Urine WBC (Auto) 03/19/20 03/20/20 03/20/20 23:59 05:12 16:52 WBC RBC Hgb Hct MCV MCH RDW Plt Count Lymph % (Auto) [place] % (Auto) Lymph # (Auto) [place] # (Auto) Seg Neutrophils % Seg Neuts % (Manual) Lymphocytes % (Manual) Monocytes % (Manual) Basophils % (Manual) Seg Neutrophils # Seg Neutrophils # Man Lymphocytes # (Manual) Monocytes # (Manual) Eosinophils # (Manual) Basophils # (Manual) PT INR D-Dimer ABG pH POC ABG pCO2 POC ABG pO2 ABG pO2 ABG HCO3 ABG O2 Saturation ABG Base Excess ABG Hemoglobin ABG Oxyhemoglobin ABG Potassium ABG Glucose Oxyhemoglobin Carboxyhemoglobin Sodium Potassium Chloride Carbon Dioxide BUN Creatinine Glucose POC Glucose 120 H 131 H 124 H Calcium Ferritin Total Bilirubin Alkaline Phosphatase Lactate Dehydrogenase Total Creatine Kinase CK-MB (CK-2) Rel Index Troponin T C-Reactive Protein Total Protein Albumin Prealbumin LDL Cholesterol Direct Arterial Blood Glucose Arterial Blood Ionized Calcium Urine WBC (Auto) 03/20/20 03/21/20 03/21/20 23:35 04:50 07:35 WBC 15.2 H RBC 3.39 L Hgb 9.4 L Hct 29.4 L MCV MCH RDW 17.6 H Plt Count 518 H Lymph % (Auto) [place] % (Auto) Lymph # (Auto) [place] # (Auto) Seg Neutrophils % Seg Neuts % (Manual) 83.0 H Lymphocytes % (Manual) 10.0 L Monocytes % (Manual) Basophils % (Manual) 2.0 H Seg Neutrophils # Seg Neutrophils # Man 12.6 H Lymphocytes # (Manual) Monocytes # (Manual) Eosinophils # (Manual) Basophils # (Manual) 0.3 H PT INR D-Dimer ABG pH POC ABG pCO2 POC ABG pO2 ABG pO2 ABG HCO3 ABG O2 Saturation ABG Base Excess ABG Hemoglobin ABG Oxyhemoglobin ABG Potassium ABG Glucose Oxyhemoglobin Carboxyhemoglobin Sodium Potassium Chloride Carbon Dioxide BUN Creatinine Glucose POC Glucose 125 H 127 H Calcium Ferritin Total Bilirubin Alkaline Phosphatase Lactate Dehydrogenase Total Creatine Kinase CK-MB (CK-2) Rel Index Troponin T C-Reactive Protein Total Protein Albumin Prealbumin LDL Cholesterol Direct Arterial Blood Glucose Arterial Blood Ionized Calcium Urine WBC (Auto) 03/21/20 03/21/20 03/21/20 07:35 11:45 17:22 WBC RBC Hgb Hct MCV MCH RDW Plt Count Lymph % (Auto) [place] % (Auto) Lymph # (Auto) [place] # (Auto) Seg Neutrophils % Seg Neuts % (Manual) Lymphocytes % (Manual) Monocytes % (Manual) Basophils % (Manual) Seg Neutrophils # Seg Neutrophils # Man Lymphocytes # (Manual) Monocytes # (Manual) Eosinophils # (Manual) Basophils # (Manual) PT INR D-Dimer ABG pH POC ABG pCO2 POC ABG pO2 ABG pO2 ABG HCO3 ABG O2 Saturation ABG Base Excess ABG Hemoglobin ABG Oxyhemoglobin ABG Potassium ABG Glucose Oxyhemoglobin Carboxyhemoglobin Sodium 136 L Potassium Chloride 97.7 L Carbon Dioxide 32 H BUN Creatinine < 0.2 L Glucose 103 H POC Glucose 126 H 120 H Calcium Ferritin Total Bilirubin Alkaline Phosphatase Lactate Dehydrogenase Total Creatine Kinase CK-MB (CK-2) Rel Index Troponin T C-Reactive Protein Total Protein Albumin Prealbumin LDL Cholesterol Direct Arterial Blood Glucose Arterial Blood Ionized Calcium Urine WBC (Auto) 03/22/20 03/22/20 03/22/20 05:09 06:34 06:34 WBC 17.5 H RBC 3.52 L Hgb 10.0 L Hct 30.7 L MCV MCH RDW 17.5 H Plt Count 499 H Lymph % (Auto) [place] % (Auto) Lymph # (Auto) [place] # (Auto) Seg Neutrophils % Seg Neuts % (Manual) 80.0 H Lymphocytes % (Manual) 10.0 L Monocytes % (Manual) Basophils % (Manual) Seg Neutrophils # Seg Neutrophils # Man 14.0 H Lymphocytes # (Manual) Monocytes # (Manual) Eosinophils # (Manual) Basophils # (Manual) PT INR D-Dimer ABG pH POC ABG pCO2 POC ABG pO2 ABG pO2 ABG HCO3 ABG O2 Saturation ABG Base Excess ABG Hemoglobin ABG Oxyhemoglobin ABG Potassium ABG Glucose Oxyhemoglobin Carboxyhemoglobin Sodium Potassium Chloride 96.6 L Carbon Dioxide 38 H BUN Creatinine < 0.2 L Glucose 139 H POC Glucose 125 H Calcium Ferritin Total Bilirubin Alkaline Phosphatase Lactate Dehydrogenase Total Creatine Kinase CK-MB (CK-2) Rel Index Troponin T C-Reactive Protein Total Protein Albumin Prealbumin LDL Cholesterol Direct Arterial Blood Glucose Arterial Blood Ionized Calcium Urine WBC (Auto) 03/22/20 03/22/20 03/22/20 11:45 18:00 23:32 WBC RBC Hgb Hct MCV MCH RDW Plt Count Lymph % (Auto) [place] % (Auto) Lymph # (Auto) [place] # (Auto) Seg Neutrophils % Seg Neuts % (Manual) Lymphocytes % (Manual) Monocytes % (Manual) Basophils % (Manual) Seg Neutrophils # Seg Neutrophils # Man Lymphocytes # (Manual) Monocytes # (Manual) Eosinophils # (Manual) Basophils # (Manual) PT INR D-Dimer ABG pH POC ABG pCO2 POC ABG pO2 ABG pO2 ABG HCO3 ABG O2 Saturation ABG Base Excess ABG Hemoglobin ABG Oxyhemoglobin ABG Potassium ABG Glucose Oxyhemoglobin Carboxyhemoglobin Sodium Potassium Chloride Carbon Dioxide BUN Creatinine Glucose POC Glucose 135 H 133 H Calcium Ferritin Total Bilirubin Alkaline Phosphatase Lactate Dehydrogenase Total Creatine Kinase CK-MB (CK-2) Rel Index Troponin T 0.113 H* C-Reactive Protein Total Protein Albumin Prealbumin LDL Cholesterol Direct Arterial Blood Glucose Arterial Blood Ionized Calcium Urine WBC (Auto) 03/23/20 03/23/20 03/23/20 01:47 06:21 07:57 WBC RBC Hgb Hct MCV MCH RDW Plt Count Lymph % (Auto) [place] % (Auto) Lymph # (Auto) [place] # (Auto) Seg Neutrophils % Seg Neuts % (Manual) Lymphocytes % (Manual) Monocytes % (Manual) Basophils % (Manual) Seg Neutrophils # Seg Neutrophils # Man Lymphocytes # (Manual) Monocytes # (Manual) Eosinophils # (Manual) Basophils # (Manual) PT INR D-Dimer ABG pH POC ABG pCO2 POC ABG pO2 ABG pO2 ABG HCO3 ABG O2 Saturation ABG Base Excess ABG Hemoglobin ABG Oxyhemoglobin ABG Potassium ABG Glucose Oxyhemoglobin Carboxyhemoglobin Sodium Potassium Chloride Carbon Dioxide BUN Creatinine Glucose POC Glucose 130 H Calcium Ferritin Total Bilirubin Alkaline Phosphatase Lactate Dehydrogenase Total Creatine Kinase CK-MB (CK-2) Rel Index Troponin T 0.143 H* D 0.105 H* D C-Reactive Protein Total Protein Albumin Prealbumin LDL Cholesterol Direct Arterial Blood Glucose Arterial Blood Ionized Calcium Urine WBC (Auto) 03/23/20 03/24/20 03/24/20 12:02 05:33 07:15 WBC 18.0 H RBC Hgb 11.0 L Hct 34.0 L MCV MCH RDW 17.4 H Plt Count 520 H Lymph % (Auto) [place] % (Auto) Lymph # (Auto) [place] # (Auto) Seg Neutrophils % Seg Neuts % (Manual) 88.0 H Lymphocytes % (Manual) 7.0 L Monocytes % (Manual) Basophils % (Manual) Seg Neutrophils # Seg Neutrophils # Man 15.8 H Lymphocytes # (Manual) Monocytes # (Manual) Eosinophils # (Manual) Basophils # (Manual) PT INR D-Dimer ABG pH POC ABG pCO2 POC ABG pO2 ABG pO2 ABG HCO3 ABG O2 Saturation ABG Base Excess ABG Hemoglobin ABG Oxyhemoglobin ABG Potassium ABG Glucose Oxyhemoglobin Carboxyhemoglobin Sodium Potassium Chloride Carbon Dioxide BUN Creatinine Glucose POC Glucose 137 H 112 H Calcium Ferritin Total Bilirubin Alkaline Phosphatase Lactate Dehydrogenase Total Creatine Kinase CK-MB (CK-2) Rel Index Troponin T C-Reactive Protein Total Protein Albumin Prealbumin LDL Cholesterol Direct Arterial Blood Glucose Arterial Blood Ionized Calcium Urine WBC (Auto) 03/24/20 03/24/2020 07:15 11:22 23:30 WBC RBC Hgb Hct MCV MCH RDW Plt Count Lymph % (Auto) [place] % (Auto) Lymph # (Auto) [place] # (Auto) Seg Neutrophils % Seg Neuts % (Manual) Lymphocytes % (Manual) Monocytes % (Manual) Basophils % (Manual) Seg Neutrophils # Seg Neutrophils # Man Lymphocytes # (Manual) Monocytes # (Manual) Eosinophils # (Manual) Basophils # (Manual) PT INR D-Dimer ABG pH POC ABG pCO2 POC ABG pO2 ABG pO2 ABG HCO3 ABG O2 Saturation ABG Base Excess ABG Hemoglobin ABG Oxyhemoglobin ABG Potassium ABG Glucose Oxyhemoglobin Carboxyhemoglobin Sodium Potassium Chloride 96.6 L Carbon Dioxide 38 H BUN Creatinine < 0.2 L Glucose 141 H POC Glucose 130 H 120 H Calcium Ferritin Total Bilirubin Alkaline Phosphatase Lactate Dehydrogenase Total Creatine Kinase CK-MB (CK-2) Rel Index Troponin T C-Reactive Protein Total Protein Albumin Prealbumin LDL Cholesterol Direct Arterial Blood Glucose Arterial Blood Ionized Calcium Urine WBC (Auto) 03/25/20 03/25/20 03/25/20 05:48 17:53 23:18 WBC RBC Hgb Hct MCV MCH RDW Plt Count Lymph % (Auto) [place] % (Auto) Lymph # (Auto) [place] # (Auto) Seg Neutrophils % Seg Neuts % (Manual) Lymphocytes % (Manual) Monocytes % (Manual) Basophils % (Manual) Seg Neutrophils # Seg Neutrophils # Man Lymphocytes # (Manual) Monocytes # (Manual) Eosinophils # (Manual) Basophils # (Manual) PT INR D-Dimer ABG pH POC ABG pCO2 POC ABG pO2 ABG pO2 ABG HCO3 ABG O2 Saturation ABG Base Excess ABG Hemoglobin ABG Oxyhemoglobin ABG Potassium ABG Glucose Oxyhemoglobin Carboxyhemoglobin Sodium Potassium Chloride Carbon Dioxide BUN Creatinine Glucose POC Glucose 124 H 109 H 131 H Calcium Ferritin Total Bilirubin Alkaline Phosphatase Lactate Dehydrogenase Total Creatine Kinase CK-MB (CK-2) Rel Index Troponin T C-Reactive Protein Total Protein Albumin Prealbumin LDL Cholesterol Direct Arterial Blood Glucose Arterial Blood Ionized Calcium Urine WBC (Auto) 03/26/20 03/26/20 03/26/20 05:21 08:49 08:49 WBC 19.7 H RBC Hgb 10.7 L Hct 33.5 L MCV MCH 27 L RDW 17.1 H Plt Count 480 H Lymph % (Auto) 5.7 L [place] % (Auto) Lymph # (Auto) 1.1 L [place] # (Auto) 1.2 H Seg Neutrophils % 87.7 H Seg Neuts % (Manual) Lymphocytes % (Manual) Monocytes % (Manual) Basophils % (Manual) Seg Neutrophils # 17.2 H Seg Neutrophils # Man Lymphocytes # (Manual) Monocytes # (Manual) Eosinophils # (Manual) Basophils # (Manual) PT INR D-Dimer ABG pH POC ABG pCO2 POC ABG pO2 ABG pO2 ABG HCO3 ABG O2 Saturation ABG Base Excess ABG Hemoglobin ABG Oxyhemoglobin ABG Potassium ABG Glucose Oxyhemoglobin Carboxyhemoglobin Sodium Potassium Chloride 97.2 L Carbon Dioxide 36 H BUN Creatinine < 0.2 L Glucose 127 H POC Glucose 116 H Calcium Ferritin Total Bilirubin Alkaline Phosphatase Lactate Dehydrogenase Total Creatine Kinase CK-MB (CK-2) Rel Index Troponin T C-Reactive Protein Total Protein Albumin Prealbumin LDL Cholesterol Direct Arterial Blood Glucose Arterial Blood Ionized Calcium Urine WBC (Auto) 03/26/20 03/26/20 03/26/20 11:38 18:44 23:06 WBC RBC Hgb Hct MCV MCH RDW Plt Count Lymph % (Auto) [place] % (Auto) Lymph # (Auto) [place] # (Auto) Seg Neutrophils % Seg Neuts % (Manual) Lymphocytes % (Manual) Monocytes % (Manual) Basophils % (Manual) Seg Neutrophils # Seg Neutrophils # Man Lymphocytes # (Manual) Monocytes # (Manual) Eosinophils # (Manual) Basophils # (Manual) PT INR D-Dimer ABG pH POC ABG pCO2 POC ABG pO2 ABG pO2 ABG HCO3 ABG O2 Saturation ABG Base Excess ABG Hemoglobin ABG Oxyhemoglobin ABG Potassium ABG Glucose Oxyhemoglobin Carboxyhemoglobin Sodium Potassium Chloride Carbon Dioxide BUN Creatinine Glucose POC Glucose 120 H 111 H 134 H Calcium Ferritin Total Bilirubin Alkaline Phosphatase Lactate Dehydrogenase Total Creatine Kinase CK-MB (CK-2) Rel Index Troponin T C-Reactive Protein Total Protein Albumin Prealbumin LDL Cholesterol Direct Arterial Blood Glucose Arterial Blood Ionized Calcium Urine WBC (Auto) 03/27/20 03/27/20 03/27/20 05:41 05:59 05:59 WBC 18.6 H RBC Hgb 10.1 L Hct 31.4 L MCV MCH RDW 17.2 H Plt Count Lymph % (Auto) 8.0 L [place] % (Auto) Lymph # (Auto) [place] # (Auto) 1.2 H Seg Neutrophils % 84.7 H Seg Neuts % (Manual) Lymphocytes % (Manual) Monocytes % (Manual) Basophils % (Manual) Seg Neutrophils # 15.8 H Seg Neutrophils # Man Lymphocytes # (Manual) Monocytes # (Manual) Eosinophils # (Manual) Basophils # (Manual) PT INR D-Dimer ABG pH POC ABG pCO2 POC ABG pO2 ABG pO2 ABG HCO3 ABG O2 Saturation ABG Base Excess ABG Hemoglobin ABG Oxyhemoglobin ABG Potassium ABG Glucose Oxyhemoglobin Carboxyhemoglobin Sodium Potassium Chloride Carbon Dioxide 34 H BUN Creatinine < 0.2 L Glucose 127 H POC Glucose 129 H Calcium Ferritin Total Bilirubin Alkaline Phosphatase Lactate Dehydrogenase Total Creatine Kinase CK-MB (CK-2) Rel Index Troponin T C-Reactive Protein Total Protein Albumin Prealbumin LDL Cholesterol Direct Arterial Blood Glucose Arterial Blood Ionized Calcium Urine WBC (Auto) 03/27/20 03/27/20 03/28/20 17:28 23:22 05:23 WBC RBC Hgb Hct MCV MCH RDW Plt Count Lymph % (Auto) [place] % (Auto) Lymph # (Auto) [place] # (Auto) Seg Neutrophils % Seg Neuts % (Manual) Lymphocytes % (Manual) Monocytes % (Manual) Basophils % (Manual) Seg Neutrophils # Seg Neutrophils # Man Lymphocytes # (Manual) Monocytes # (Manual) Eosinophils # (Manual) Basophils # (Manual) PT INR D-Dimer ABG pH POC ABG pCO2 POC ABG pO2 ABG pO2 ABG HCO3 ABG O2 Saturation ABG Base Excess ABG Hemoglobin ABG Oxyhemoglobin ABG Potassium ABG Glucose Oxyhemoglobin Carboxyhemoglobin Sodium Potassium Chloride Carbon Dioxide BUN Creatinine Glucose POC Glucose 108 H 119 H 129 H Calcium Ferritin Total Bilirubin Alkaline Phosphatase Lactate Dehydrogenase Total Creatine Kinase CK-MB (CK-2) Rel Index Troponin T C-Reactive Protein Total Protein Albumin Prealbumin LDL Cholesterol Direct Arterial Blood Glucose Arterial Blood Ionized Calcium Urine WBC (Auto) 03/28/20 03/28/20 03/28/20 10:28 10:28 11:36 WBC 23.6 H RBC 3.62 L Hgb 10.0 L Hct 30.8 L MCV MCH RDW 16.4 H Plt Count Lymph % (Auto) [place] % (Auto) Lymph # (Auto) [place] # (Auto) Seg Neutrophils % Seg Neuts % (Manual) 89.0 H Lymphocytes % (Manual) 5.0 L Monocytes % (Manual) Basophils % (Manual) Seg Neutrophils # Seg Neutrophils # Man 21.0 H Lymphocytes # (Manual) Monocytes # (Manual) 1.2 H Eosinophils # (Manual) Basophils # (Manual) 0.2 H PT INR D-Dimer ABG pH POC ABG pCO2 POC ABG pO2 ABG pO2 ABG HCO3 ABG O2 Saturation ABG Base Excess ABG Hemoglobin ABG Oxyhemoglobin ABG Potassium ABG Glucose Oxyhemoglobin Carboxyhemoglobin Sodium 134 L Potassium Chloride 94.2 L Carbon Dioxide 35 H BUN Creatinine < 0.2 L Glucose 134 H POC Glucose Calcium Ferritin Total Bilirubin Alkaline Phosphatase Lactate Dehydrogenase Total Creatine Kinase CK-MB (CK-2) Rel Index Troponin T C-Reactive Protein Total Protein Albumin Prealbumin LDL Cholesterol Direct Arterial Blood Glucose Arterial Blood Ionized Calcium Urine WBC (Auto) 39.0 H 03/28/20 03/28/20 03/28/20 11:51 17:08 17:17 WBC RBC Hgb Hct MCV MCH RDW Plt Count Lymph % (Auto) [place] % (Auto) Lymph # (Auto) [place] # (Auto) Seg Neutrophils % Seg Neuts % (Manual) Lymphocytes % (Manual) Monocytes % (Manual) Basophils % (Manual) Seg Neutrophils # Seg Neutrophils # Man Lymphocytes # (Manual) Monocytes # (Manual) Eosinophils # (Manual) Basophils # (Manual) PT INR D-Dimer ABG pH POC ABG pCO2 POC ABG pO2 ABG pO2 ABG HCO3 ABG O2 Saturation ABG Base Excess ABG Hemoglobin ABG Oxyhemoglobin ABG Potassium ABG Glucose Oxyhemoglobin Carboxyhemoglobin Sodium Potassium Chloride Carbon Dioxide BUN Creatinine Glucose POC Glucose 123 H 112 H Calcium Ferritin Total Bilirubin Alkaline Phosphatase Lactate Dehydrogenase Total Creatine Kinase 47 L CK-MB (CK-2) Rel Index 4.6 H Troponin T 0.090 H C-Reactive Protein Total Protein Albumin Prealbumin LDL Cholesterol Direct Arterial Blood Glucose Arterial Blood Ionized Calcium Urine WBC (Auto) 03/28/20 03/29/20 03/29/20 23:22 05:22 10:58 WBC RBC Hgb Hct MCV MCH RDW Plt Count Lymph % (Auto) [place] % (Auto) Lymph # (Auto) [place] # (Auto) Seg Neutrophils % Seg Neuts % (Manual) Lymphocytes % (Manual) Monocytes % (Manual) Basophils % (Manual) Seg Neutrophils # Seg Neutrophils # Man Lymphocytes # (Manual) Monocytes # (Manual) Eosinophils # (Manual) Basophils # (Manual) PT INR D-Dimer ABG pH POC ABG pCO2 POC ABG pO2 ABG pO2 ABG HCO3 ABG O2 Saturation ABG Base Excess ABG Hemoglobin ABG Oxyhemoglobin ABG Potassium ABG Glucose Oxyhemoglobin Carboxyhemoglobin Sodium Potassium Chloride Carbon Dioxide BUN Creatinine Glucose POC Glucose 122 H 116 H 133 H Calcium Ferritin Total Bilirubin Alkaline Phosphatase Lactate Dehydrogenase Total Creatine Kinase CK-MB (CK-2) Rel Index Troponin T C-Reactive Protein Total Protein Albumin Prealbumin LDL Cholesterol Direct Arterial Blood Glucose Arterial Blood Ionized Calcium Urine WBC (Auto) 03/29/20 03/29/20 03/30/20 17:18 23:14 04:57 WBC RBC Hgb Hct MCV MCH RDW Plt Count Lymph % (Auto) [place] % (Auto) Lymph # (Auto) [place] # (Auto) Seg Neutrophils % Seg Neuts % (Manual) Lymphocytes % (Manual) Monocytes % (Manual) Basophils % (Manual) Seg Neutrophils # Seg Neutrophils # Man Lymphocytes # (Manual) Monocytes # (Manual) Eosinophils # (Manual) Basophils # (Manual) PT INR D-Dimer ABG pH POC ABG pCO2 POC ABG pO2 ABG pO2 ABG HCO3 ABG O2 Saturation ABG Base Excess ABG Hemoglobin ABG Oxyhemoglobin ABG Potassium ABG Glucose Oxyhemoglobin Carboxyhemoglobin Sodium Potassium Chloride Carbon Dioxide BUN Creatinine Glucose POC Glucose 111 H 114 H 130 H Calcium Ferritin Total Bilirubin Alkaline Phosphatase Lactate Dehydrogenase Total Creatine Kinase CK-MB (CK-2) Rel Index Troponin T C-Reactive Protein Total Protein Albumin Prealbumin LDL Cholesterol Direct Arterial Blood Glucose Arterial Blood Ionized Calcium Urine WBC (Auto) 03/30/20 03/30/20 03/30/20 11:38 14:47 14:47 WBC 19.9 H RBC Hgb 10.9 L Hct 34.4 L MCV MCH 27 L RDW 16.5 H Plt Count 441 H Lymph % (Auto) 6.4 L [place] % (Auto) Lymph # (Auto) [place] # (Auto) 1.4 H Seg Neutrophils % 86.1 H Seg Neuts % (Manual) Lymphocytes % (Manual) Monocytes % (Manual) Basophils % (Manual) Seg Neutrophils # 17.1 H Seg Neutrophils # Man Lymphocytes # (Manual) Monocytes # (Manual) Eosinophils # (Manual) Basophils # (Manual) PT INR D-Dimer ABG pH POC ABG pCO2 POC ABG pO2 ABG pO2 ABG HCO3 ABG O2 Saturation ABG Base Excess ABG Hemoglobin ABG Oxyhemoglobin ABG Potassium ABG Glucose Oxyhemoglobin Carboxyhemoglobin Sodium 133 L Potassium Chloride 94.6 L Carbon Dioxide 33 H BUN Creatinine < 0.2 L Glucose 194 H POC Glucose 139 H Calcium Ferritin Total Bilirubin Alkaline Phosphatase Lactate Dehydrogenase Total Creatine Kinase CK-MB (CK-2) Rel Index Troponin T C-Reactive Protein Total Protein Albumin 2.8 L Prealbumin LDL Cholesterol Direct Arterial Blood Glucose Arterial Blood Ionized Calcium Urine WBC (Auto) 03/30/20 03/31/20 03/31/20 17:07 05:02 15:21 WBC RBC Hgb Hct MCV MCH RDW Plt Count Lymph % (Auto) [place] % (Auto) Lymph # (Auto) [place] # (Auto) Seg Neutrophils % Seg Neuts % (Manual) Lymphocytes % (Manual) Monocytes % (Manual) Basophils % (Manual) Seg Neutrophils # Seg Neutrophils # Man Lymphocytes # (Manual) Monocytes # (Manual) Eosinophils # (Manual) Basophils # (Manual) PT INR D-Dimer ABG pH POC ABG pCO2 POC ABG pO2 ABG pO2 ABG HCO3 ABG O2 Saturation ABG Base Excess ABG Hemoglobin ABG Oxyhemoglobin ABG Potassium ABG Glucose Oxyhemoglobin Carboxyhemoglobin Sodium Potassium Chloride Carbon Dioxide BUN Creatinine Glucose POC Glucose 163 H 108 H 110 H Calcium Ferritin Total Bilirubin Alkaline Phosphatase Lactate Dehydrogenase Total Creatine Kinase CK-MB (CK-2) Rel Index Troponin T C-Reactive Protein Total Protein Albumin Prealbumin LDL Cholesterol Direct Arterial Blood Glucose Arterial Blood Ionized Calcium Urine WBC (Auto) 03/31/20 03/31/20 04/01/20 17:58 23:19 05:09 WBC RBC Hgb Hct MCV MCH RDW Plt Count Lymph % (Auto) [place] % (Auto) Lymph # (Auto) [place] # (Auto) Seg Neutrophils % Seg Neuts % (Manual) Lymphocytes % (Manual) Monocytes % (Manual) Basophils % (Manual) Seg Neutrophils # Seg Neutrophils # Man Lymphocytes # (Manual) Monocytes # (Manual) Eosinophils # (Manual) Basophils # (Manual) PT INR D-Dimer ABG pH POC ABG pCO2 POC ABG pO2 ABG pO2 ABG HCO3 ABG O2 Saturation ABG Base Excess ABG Hemoglobin ABG Oxyhemoglobin ABG Potassium ABG Glucose Oxyhemoglobin Carboxyhemoglobin Sodium Potassium Chloride Carbon Dioxide BUN Creatinine Glucose POC Glucose 110 H 131 H 124 H Calcium Ferritin Total Bilirubin Alkaline Phosphatase Lactate Dehydrogenase Total Creatine Kinase CK-MB (CK-2) Rel Index Troponin T C-Reactive Protein Total Protein Albumin Prealbumin LDL Cholesterol Direct Arterial Blood Glucose Arterial Blood Ionized Calcium Urine WBC (Auto) 04/01/20 04/01/20 04/01/20 11:50 17:01 23:21 WBC RBC Hgb Hct MCV MCH RDW Plt Count Lymph % (Auto) [place] % (Auto) Lymph # (Auto) [place] # (Auto) Seg Neutrophils % Seg Neuts % (Manual) Lymphocytes % (Manual) Monocytes % (Manual) Basophils % (Manual) Seg Neutrophils # Seg Neutrophils # Man Lymphocytes # (Manual) Monocytes # (Manual) Eosinophils # (Manual) Basophils # (Manual) PT INR D-Dimer ABG pH POC ABG pCO2 POC ABG pO2 ABG pO2 ABG HCO3 ABG O2 Saturation ABG Base Excess ABG Hemoglobin ABG Oxyhemoglobin ABG Potassium ABG Glucose Oxyhemoglobin Carboxyhemoglobin Sodium Potassium Chloride Carbon Dioxide BUN Creatinine Glucose POC Glucose 136 H 115 H 124 H Calcium Ferritin Total Bilirubin Alkaline Phosphatase Lactate Dehydrogenase Total Creatine Kinase CK-MB (CK-2) Rel Index Troponin T C-Reactive Protein Total Protein Albumin Prealbumin LDL Cholesterol Direct Arterial Blood Glucose Arterial Blood Ionized Calcium Urine WBC (Auto) 04/02/20 04/02/20 04/02/20 05:27 11:58 17:58 WBC RBC Hgb Hct MCV MCH RDW Plt Count Lymph % (Auto) [place] % (Auto) Lymph # (Auto) [place] # (Auto) Seg Neutrophils % Seg Neuts % (Manual) Lymphocytes % (Manual) Monocytes % (Manual) Basophils % (Manual) Seg Neutrophils # Seg Neutrophils # Man Lymphocytes # (Manual) Monocytes # (Manual) Eosinophils # (Manual) Basophils # (Manual) PT INR D-Dimer ABG pH POC ABG pCO2 POC ABG pO2 ABG pO2 ABG HCO3 ABG O2 Saturation ABG Base Excess ABG Hemoglobin ABG Oxyhemoglobin ABG Potassium ABG Glucose Oxyhemoglobin Carboxyhemoglobin Sodium Potassium Chloride Carbon Dioxide BUN Creatinine Glucose POC Glucose 117 H 133 H 122 H Calcium Ferritin Total Bilirubin Alkaline Phosphatase Lactate Dehydrogenase Total Creatine Kinase CK-MB (CK-2) Rel Index Troponin T C-Reactive Protein Total Protein Albumin Prealbumin LDL Cholesterol Direct Arterial Blood Glucose Arterial Blood Ionized Calcium Urine WBC (Auto) 04/02/20 04/03/20 04/03/20 23:12 05:11 11:11 WBC RBC Hgb Hct MCV MCH RDW Plt Count Lymph % (Auto) [place] % (Auto) Lymph # (Auto) [place] # (Auto) Seg Neutrophils % Seg Neuts % (Manual) Lymphocytes % (Manual) Monocytes % (Manual) Basophils % (Manual) Seg Neutrophils # Seg Neutrophils # Man Lymphocytes # (Manual) Monocytes # (Manual) Eosinophils # (Manual) Basophils # (Manual) PT INR D-Dimer ABG pH POC ABG pCO2 POC ABG pO2 ABG pO2 ABG HCO3 ABG O2 Saturation ABG Base Excess ABG Hemoglobin ABG Oxyhemoglobin ABG Potassium ABG Glucose Oxyhemoglobin Carboxyhemoglobin Sodium Potassium Chloride Carbon Dioxide BUN Creatinine Glucose POC Glucose 130 H 139 H 136 H Calcium Ferritin Total Bilirubin Alkaline Phosphatase Lactate Dehydrogenase Total Creatine Kinase CK-MB (CK-2) Rel Index Troponin T C-Reactive Protein Total Protein Albumin Prealbumin LDL Cholesterol Direct Arterial Blood Glucose Arterial Blood Ionized Calcium Urine WBC (Auto) 04/03/20 04/03/20 04/04/20 16:51 23:25 05:29 WBC RBC Hgb Hct MCV MCH RDW Plt Count Lymph % (Auto) [place] % (Auto) Lymph # (Auto) [place] # (Auto) Seg Neutrophils % Seg Neuts % (Manual) Lymphocytes % (Manual) Monocytes % (Manual) Basophils % (Manual) Seg Neutrophils # Seg Neutrophils # Man Lymphocytes # (Manual) Monocytes # (Manual) Eosinophils # (Manual) Basophils # (Manual) PT INR D-Dimer ABG pH POC ABG pCO2 POC ABG pO2 ABG pO2 ABG HCO3 ABG O2 Saturation ABG Base Excess ABG Hemoglobin ABG Oxyhemoglobin ABG Potassium ABG Glucose Oxyhemoglobin Carboxyhemoglobin Sodium Potassium Chloride Carbon Dioxide BUN Creatinine Glucose POC Glucose 118 H 111 H 126 H Calcium Ferritin Total Bilirubin Alkaline Phosphatase Lactate Dehydrogenase Total Creatine Kinase CK-MB (CK-2) Rel Index Troponin T C-Reactive Protein Total Protein Albumin Prealbumin LDL Cholesterol Direct Arterial Blood Glucose Arterial Blood Ionized Calcium Urine WBC (Auto) 04/04/20 04/04/20 04/04/20 11:47 17:41 23:05 WBC RBC Hgb Hct MCV MCH RDW Plt Count Lymph % (Auto) [place] % (Auto) Lymph # (Auto) [place] # (Auto) Seg Neutrophils % Seg Neuts % (Manual) Lymphocytes % (Manual) Monocytes % (Manual) Basophils % (Manual) Seg Neutrophils # Seg Neutrophils # Man Lymphocytes # (Manual) Monocytes # (Manual) Eosinophils # (Manual) Basophils # (Manual) PT INR D-Dimer ABG pH POC ABG pCO2 POC ABG pO2 ABG pO2 ABG HCO3 ABG O2 Saturation ABG Base Excess ABG Hemoglobin ABG Oxyhemoglobin ABG Potassium ABG Glucose Oxyhemoglobin Carboxyhemoglobin Sodium Potassium Chloride Carbon Dioxide BUN Creatinine Glucose POC Glucose 123 H 120 H 119 H Calcium Ferritin Total Bilirubin Alkaline Phosphatase Lactate Dehydrogenase Total Creatine Kinase CK-MB (CK-2) Rel Index Troponin T C-Reactive Protein Total Protein Albumin Prealbumin LDL Cholesterol Direct Arterial Blood Glucose Arterial Blood Ionized Calcium Urine WBC (Auto) 04/05/20 04/05/20 04/05/20 05:14 12:16 18:48 WBC RBC Hgb Hct MCV MCH RDW Plt Count Lymph % (Auto) [place] % (Auto) Lymph # (Auto) [place] # (Auto) Seg Neutrophils % Seg Neuts % (Manual) Lymphocytes % (Manual) Monocytes % (Manual) Basophils % (Manual) Seg Neutrophils # Seg Neutrophils # Man Lymphocytes # (Manual) Monocytes # (Manual) Eosinophils # (Manual) Basophils # (Manual) PT INR D-Dimer ABG pH POC ABG pCO2 POC ABG pO2 ABG pO2 ABG HCO3 ABG O2 Saturation ABG Base Excess ABG Hemoglobin ABG Oxyhemoglobin ABG Potassium ABG Glucose Oxyhemoglobin Carboxyhemoglobin Sodium Potassium Chloride Carbon Dioxide BUN Creatinine Glucose POC Glucose 123 H 148 H 106 H Calcium Ferritin Total Bilirubin Alkaline Phosphatase Lactate Dehydrogenase Total Creatine Kinase CK-MB (CK-2) Rel Index Troponin T C-Reactive Protein Total Protein Albumin Prealbumin LDL Cholesterol Direct Arterial Blood Glucose Arterial Blood Ionized Calcium Urine WBC (Auto) 04/06/20 04/06/20 04/06/20 00:47 03:26 08:24 WBC RBC Hgb Hct MCV MCH RDW Plt Count Lymph % (Auto) [place] % (Auto) Lymph # (Auto) [place] # (Auto) Seg Neutrophils % Seg Neuts % (Manual) Lymphocytes % (Manual) Monocytes % (Manual) Basophils % (Manual) Seg Neutrophils # Seg Neutrophils # Man Lymphocytes # (Manual) Monocytes # (Manual) Eosinophils # (Manual) Basophils # (Manual) PT INR D-Dimer ABG pH POC ABG pCO2 POC ABG pO2 ABG pO2 ABG HCO3 ABG O2 Saturation ABG Base Excess ABG Hemoglobin ABG Oxyhemoglobin ABG Potassium ABG Glucose Oxyhemoglobin Carboxyhemoglobin Sodium Potassium Chloride Carbon Dioxide BUN Creatinine Glucose POC Glucose 129 H 134 H 131 H Calcium Ferritin Total Bilirubin Alkaline Phosphatase Lactate Dehydrogenase Total Creatine Kinase CK-MB (CK-2) Rel Index Troponin T C-Reactive Protein Total Protein Albumin Prealbumin LDL Cholesterol Direct Arterial Blood Glucose Arterial Blood Ionized Calcium Urine WBC (Auto) 04/06/20 04/06/20 04/06/20 11:16 16:27 23:01 WBC RBC Hgb Hct MCV MCH RDW Plt Count Lymph % (Auto) [place] % (Auto) Lymph # (Auto) [place] # (Auto) Seg Neutrophils % Seg Neuts % (Manual) Lymphocytes % (Manual) Monocytes % (Manual) Basophils % (Manual) Seg Neutrophils # Seg Neutrophils # Man Lymphocytes # (Manual) Monocytes # (Manual) Eosinophils # (Manual) Basophils # (Manual) PT INR D-Dimer ABG pH POC ABG pCO2 POC ABG pO2 ABG pO2 ABG HCO3 ABG O2 Saturation ABG Base Excess ABG Hemoglobin ABG Oxyhemoglobin ABG Potassium ABG Glucose Oxyhemoglobin Carboxyhemoglobin Sodium Potassium Chloride Carbon Dioxide BUN Creatinine Glucose POC Glucose 131 H 107 H 125 H Calcium Ferritin Total Bilirubin Alkaline Phosphatase Lactate Dehydrogenase Total Creatine Kinase CK-MB (CK-2) Rel Index Troponin T C-Reactive Protein Total Protein Albumin Prealbumin LDL Cholesterol Direct Arterial Blood Glucose Arterial Blood Ionized Calcium Urine WBC (Auto) 04/07/20 04/07/20 04/07/20 05:24 12:41 17:40 WBC RBC Hgb Hct MCV MCH RDW Plt Count Lymph % (Auto) [place] % (Auto) Lymph # (Auto) [place] # (Auto) Seg Neutrophils % Seg Neuts % (Manual) Lymphocytes % (Manual) Monocytes % (Manual) Basophils % (Manual) Seg Neutrophils # Seg Neutrophils # Man Lymphocytes # (Manual) Monocytes # (Manual) Eosinophils # (Manual) Basophils # (Manual) PT INR D-Dimer ABG pH POC ABG pCO2 POC ABG pO2 ABG pO2 ABG HCO3 ABG O2 Saturation ABG Base Excess ABG Hemoglobin ABG Oxyhemoglobin ABG Potassium ABG Glucose Oxyhemoglobin Carboxyhemoglobin Sodium Potassium Chloride Carbon Dioxide BUN Creatinine Glucose POC Glucose 125 H 145 H 123 H Calcium Ferritin Total Bilirubin Alkaline Phosphatase Lactate Dehydrogenase Total Creatine Kinase CK-MB (CK-2) Rel Index Troponin T C-Reactive Protein Total Protein Albumin Prealbumin LDL Cholesterol Direct Arterial Blood Glucose Arterial Blood Ionized Calcium Urine WBC (Auto) 04/07/20 04/08/20 04/08/20 23:22 05:40 11:29 WBC RBC Hgb Hct MCV MCH RDW Plt Count Lymph % (Auto) [place] % (Auto) Lymph # (Auto) [place] # (Auto) Seg Neutrophils % Seg Neuts % (Manual) Lymphocytes % (Manual) Monocytes % (Manual) Basophils % (Manual) Seg Neutrophils # Seg Neutrophils # Man Lymphocytes # (Manual) Monocytes # (Manual) Eosinophils # (Manual) Basophils # (Manual) PT INR D-Dimer ABG pH POC ABG pCO2 POC ABG pO2 ABG pO2 ABG HCO3 ABG O2 Saturation ABG Base Excess ABG Hemoglobin ABG Oxyhemoglobin ABG Potassium ABG Glucose Oxyhemoglobin Carboxyhemoglobin Sodium Potassium Chloride Carbon Dioxide BUN Creatinine Glucose POC Glucose 133 H 125 H 116 H Calcium Ferritin Total Bilirubin Alkaline Phosphatase Lactate Dehydrogenase Total Creatine Kinase CK-MB (CK-2) Rel Index Troponin T C-Reactive Protein Total Protein Albumin Prealbumin LDL Cholesterol Direct Arterial Blood Glucose Arterial Blood Ionized Calcium Urine WBC (Auto) 04/08/20 04/09/20 04/09/20 17:43 05:47 12:22 WBC RBC Hgb Hct MCV MCH RDW Plt Count Lymph % (Auto) [place] % (Auto) Lymph # (Auto) [place] # (Auto) Seg Neutrophils % Seg Neuts % (Manual) Lymphocytes % (Manual) Monocytes % (Manual) Basophils % (Manual) Seg Neutrophils # Seg Neutrophils # Man Lymphocytes # (Manual) Monocytes # (Manual) Eosinophils # (Manual) Basophils # (Manual) PT INR D-Dimer ABG pH POC ABG pCO2 POC ABG pO2 ABG pO2 ABG HCO3 ABG O2 Saturation ABG Base Excess ABG Hemoglobin ABG Oxyhemoglobin ABG Potassium ABG Glucose Oxyhemoglobin Carboxyhemoglobin Sodium Potassium Chloride Carbon Dioxide BUN Creatinine Glucose POC Glucose 123 H 108 H 116 H Calcium Ferritin Total Bilirubin Alkaline Phosphatase Lactate Dehydrogenase Total Creatine Kinase CK-MB (CK-2) Rel Index Troponin T C-Reactive Protein Total Protein Albumin Prealbumin LDL Cholesterol Direct Arterial Blood Glucose Arterial Blood Ionized Calcium Urine WBC (Auto) 12/13/20 12/13/20 12/14/20 17:24 23:52 06:10 WBC RBC Hgb Hct MCV MCH RDW Plt Count Lymph % (Auto) [place] % (Auto) Lymph # (Auto) [place] # (Auto) Seg Neutrophils % Seg Neuts % (Manual) Lymphocytes % (Manual) Monocytes % (Manual) Basophils % (Manual) Seg Neutrophils # Seg Neutrophils # Man Lymphocytes # (Manual) Monocytes # (Manual) Eosinophils # (Manual) Basophils # (Manual) PT INR D-Dimer ABG pH POC ABG pCO2 POC ABG pO2 ABG pO2 ABG HCO3 ABG O2 Saturation ABG Base Excess ABG Hemoglobin ABG Oxyhemoglobin ABG Potassium ABG Glucose Oxyhemoglobin Carboxyhemoglobin Sodium Potassium Chloride Carbon Dioxide BUN Creatinine Glucose POC Glucose 108 H 126 H 122 H Calcium Ferritin Total Bilirubin Alkaline Phosphatase Lactate Dehydrogenase Total Creatine Kinase CK-MB (CK-2) Rel Index Troponin T C-Reactive Protein Total Protein Albumin Prealbumin LDL Cholesterol Direct Arterial Blood Glucose Arterial Blood Ionized Calcium Urine WBC (Auto) 04/10/20 04/10/20 04/10/20 11:27 18:11 23:24 WBC RBC Hgb Hct MCV MCH RDW Plt Count Lymph % (Auto) [place] % (Auto) Lymph # (Auto) [place] # (Auto) Seg Neutrophils % Seg Neuts % (Manual) Lymphocytes % (Manual) Monocytes % (Manual) Basophils % (Manual) Seg Neutrophils # Seg Neutrophils # Man Lymphocytes # (Manual) Monocytes # (Manual) Eosinophils # (Manual) Basophils # (Manual) PT INR D-Dimer ABG pH POC ABG pCO2 POC ABG pO2 ABG pO2 ABG HCO3 ABG O2 Saturation ABG Base Excess ABG Hemoglobin ABG Oxyhemoglobin ABG Potassium ABG Glucose Oxyhemoglobin Carboxyhemoglobin Sodium Potassium Chloride Carbon Dioxide BUN Creatinine Glucose POC Glucose 129 H 125 H 107 H Calcium Ferritin Total Bilirubin Alkaline Phosphatase Lactate Dehydrogenase Total Creatine Kinase CK-MB (CK-2) Rel Index Troponin T C-Reactive Protein Total Protein Albumin Prealbumin LDL Cholesterol Direct Arterial Blood Glucose Arterial Blood Ionized Calcium Urine WBC (Auto) 04/11/20 04/11/20 04/11/20 05:28 11:46 23:49 WBC RBC Hgb Hct MCV MCH RDW Plt Count Lymph % (Auto) [place] % (Auto) Lymph # (Auto) [place] # (Auto) Seg Neutrophils % Seg Neuts % (Manual) Lymphocytes % (Manual) Monocytes % (Manual) Basophils % (Manual) Seg Neutrophils # Seg Neutrophils # Man Lymphocytes # (Manual) Monocytes # (Manual) Eosinophils # (Manual) Basophils # (Manual) PT INR D-Dimer ABG pH POC ABG pCO2 POC ABG pO2 ABG pO2 ABG HCO3 ABG O2 Saturation ABG Base Excess ABG Hemoglobin ABG Oxyhemoglobin ABG Potassium ABG Glucose Oxyhemoglobin Carboxyhemoglobin Sodium Potassium Chloride Carbon Dioxide BUN Creatinine Glucose POC Glucose 122 H 122 H 116 H Calcium Ferritin Total Bilirubin Alkaline Phosphatase Lactate Dehydrogenase Total Creatine Kinase CK-MB (CK-2) Rel Index Troponin T C-Reactive Protein Total Protein Albumin Prealbumin LDL Cholesterol Direct Arterial Blood Glucose Arterial Blood Ionized Calcium Urine WBC (Auto) 04/12/20 04/12/20 04/12/20 09:07 09:07 11:39 WBC 13.1 H RBC 3.59 L Hgb 9.5 L Hct 29.8 L MCV 83 L MCH 26 L RDW 16.6 H Plt Count 591 H Lymph % (Auto) [place] % (Auto) Lymph # (Auto) [place] # (Auto) Seg Neutrophils % Seg Neuts % (Manual) 86.0 H Lymphocytes % (Manual) 7.0 L Monocytes % (Manual) Basophils % (Manual) Seg Neutrophils # Seg Neutrophils # Man 11.3 H Lymphocytes # (Manual) 0.9 L Monocytes # (Manual) Eosinophils # (Manual) Basophils # (Manual) PT INR D-Dimer ABG pH POC ABG pCO2 POC ABG pO2 ABG pO2 ABG HCO3 ABG O2 Saturation ABG Base Excess ABG Hemoglobin ABG Oxyhemoglobin ABG Potassium ABG Glucose Oxyhemoglobin Carboxyhemoglobin Sodium Potassium Chloride Carbon Dioxide 36 H BUN Creatinine < 0.2 L Glucose 132 H POC Glucose 136 H Calcium Ferritin Total Bilirubin Alkaline Phosphatase Lactate Dehydrogenase Total Creatine Kinase CK-MB (CK-2) Rel Index Troponin T C-Reactive Protein Total Protein Albumin 2.7 L Prealbumin LDL Cholesterol Direct Arterial Blood Glucose Arterial Blood Ionized Calcium Urine WBC (Auto) 04/12/20 04/12/20 04/13/20 18:13 23:07 05:45 WBC RBC Hgb Hct MCV MCH RDW Plt Count Lymph % (Auto) [place] % (Auto) Lymph # (Auto) [place] # (Auto) Seg Neutrophils % Seg Neuts % (Manual) Lymphocytes % (Manual) Monocytes % (Manual) Basophils % (Manual) Seg Neutrophils # Seg Neutrophils # Man Lymphocytes # (Manual) Monocytes # (Manual) Eosinophils # (Manual) Basophils # (Manual) PT INR D-Dimer ABG pH POC ABG pCO2 POC ABG pO2 ABG pO2 ABG HCO3 ABG O2 Saturation ABG Base Excess ABG Hemoglobin ABG Oxyhemoglobin ABG Potassium ABG Glucose Oxyhemoglobin Carboxyhemoglobin Sodium Potassium Chloride Carbon Dioxide BUN Creatinine Glucose POC Glucose 107 H 106 H 125 H Calcium Ferritin Total Bilirubin Alkaline Phosphatase Lactate Dehydrogenase Total Creatine Kinase CK-MB (CK-2) Rel Index Troponin T C-Reactive Protein Total Protein Albumin Prealbumin LDL Cholesterol Direct Arterial Blood Glucose Arterial Blood Ionized Calcium Urine WBC (Auto) 04/13/20 04/13/20 04/13/20 11:18 17:56 23:33 WBC RBC Hgb Hct MCV MCH RDW Plt Count Lymph % (Auto) [place] % (Auto) Lymph # (Auto) [place] # (Auto) Seg Neutrophils % Seg Neuts % (Manual) Lymphocytes % (Manual) Monocytes % (Manual) Basophils % (Manual) Seg Neutrophils # Seg Neutrophils # Man Lymphocytes # (Manual) Monocytes # (Manual) Eosinophils # (Manual) Basophils # (Manual) PT INR D-Dimer ABG pH POC ABG pCO2 POC ABG pO2 ABG pO2 ABG HCO3 ABG O2 Saturation ABG Base Excess ABG Hemoglobin ABG Oxyhemoglobin ABG Potassium ABG Glucose Oxyhemoglobin Carboxyhemoglobin Sodium Potassium Chloride Carbon Dioxide BUN Creatinine Glucose POC Glucose 133 H 110 H 114 H Calcium Ferritin Total Bilirubin Alkaline Phosphatase Lactate Dehydrogenase Total Creatine Kinase CK-MB (CK-2) Rel Index Troponin T C-Reactive Protein Total Protein Albumin Prealbumin LDL Cholesterol Direct Arterial Blood Glucose Arterial Blood Ionized Calcium Urine WBC (Auto) 04/14/20 04/14/20 04/14/20 05:58 11:45 17:48 WBC RBC Hgb Hct MCV MCH RDW Plt Count Lymph % (Auto) [place] % (Auto) Lymph # (Auto) [place] # (Auto) Seg Neutrophils % Seg Neuts % (Manual) Lymphocytes % (Manual) Monocytes % (Manual) Basophils % (Manual) Seg Neutrophils # Seg Neutrophils # Man Lymphocytes # (Manual) Monocytes # (Manual) Eosinophils # (Manual) Basophils # (Manual) PT INR D-Dimer ABG pH POC ABG pCO2 POC ABG pO2 ABG pO2 ABG HCO3 ABG O2 Saturation ABG Base Excess ABG Hemoglobin ABG Oxyhemoglobin ABG Potassium ABG Glucose Oxyhemoglobin Carboxyhemoglobin Sodium Potassium Chloride Carbon Dioxide BUN Creatinine Glucose POC Glucose 115 H 122 H 124 H Calcium Ferritin Total Bilirubin Alkaline Phosphatase Lactate Dehydrogenase Total Creatine Kinase CK-MB (CK-2) Rel Index Troponin T C-Reactive Protein Total Protein Albumin Prealbumin LDL Cholesterol Direct Arterial Blood Glucose Arterial Blood Ionized Calcium Urine WBC (Auto) 04/15/20 04/15/20 04/15/20 00:11 05:38 11:31 WBC RBC Hgb Hct MCV MCH RDW Plt Count Lymph % (Auto) [place] % (Auto) Lymph # (Auto) [place] # (Auto) Seg Neutrophils % Seg Neuts % (Manual) Lymphocytes % (Manual) Monocytes % (Manual) Basophils % (Manual) Seg Neutrophils # Seg Neutrophils # Man Lymphocytes # (Manual) Monocytes # (Manual) Eosinophils # (Manual) Basophils # (Manual) PT INR D-Dimer ABG pH POC ABG pCO2 POC ABG pO2 ABG pO2 ABG HCO3 ABG O2 Saturation ABG Base Excess ABG Hemoglobin ABG Oxyhemoglobin ABG Potassium ABG Glucose Oxyhemoglobin Carboxyhemoglobin Sodium Potassium Chloride Carbon Dioxide BUN Creatinine Glucose POC Glucose 120 H 109 H 123 H Calcium Ferritin Total Bilirubin Alkaline Phosphatase Lactate Dehydrogenase Total Creatine Kinase CK-MB (CK-2) Rel Index Troponin T C-Reactive Protein Total Protein Albumin Prealbumin LDL Cholesterol Direct Arterial Blood Glucose Arterial Blood Ionized Calcium Urine WBC (Auto) 04/15/20 04/16/20 04/16/20 17:35 06:00 11:29 WBC RBC Hgb Hct MCV MCH RDW Plt Count Lymph % (Auto) [place] % (Auto) Lymph # (Auto) [place] # (Auto) Seg Neutrophils % Seg Neuts % (Manual) Lymphocytes % (Manual) Monocytes % (Manual) Basophils % (Manual) Seg Neutrophils # Seg Neutrophils # Man Lymphocytes # (Manual) Monocytes # (Manual) Eosinophils # (Manual) Basophils # (Manual) PT INR D-Dimer ABG pH POC ABG pCO2 POC ABG pO2 ABG pO2 ABG HCO3 ABG O2 Saturation ABG Base Excess ABG Hemoglobin ABG Oxyhemoglobin ABG Potassium ABG Glucose Oxyhemoglobin Carboxyhemoglobin Sodium Potassium Chloride Carbon Dioxide BUN Creatinine Glucose POC Glucose 111 H 142 H 108 H Calcium Ferritin Total Bilirubin Alkaline Phosphatase Lactate Dehydrogenase Total Creatine Kinase CK-MB (CK-2) Rel Index Troponin T C-Reactive Protein Total Protein Albumin Prealbumin LDL Cholesterol Direct Arterial Blood Glucose Arterial Blood Ionized Calcium Urine WBC (Auto) 04/17/20 04/17/20 04/17/20 05:09 06:53 06:53 WBC 14.2 H RBC Hgb 10.1 L Hct 31.5 L MCV MCH 27 L RDW 17.2 H Plt Count 643 H Lymph % (Auto) [place] % (Auto) Lymph # (Auto) [place] # (Auto) Seg Neutrophils % Seg Neuts % (Manual) Lymphocytes % (Manual) Monocytes % (Manual) Basophils % (Manual) Seg Neutrophils # Seg Neutrophils # Man Lymphocytes # (Manual) Monocytes # (Manual) Eosinophils # (Manual) Basophils # (Manual) PT INR D-Dimer ABG pH POC ABG pCO2 POC ABG pO2 ABG pO2 ABG HCO3 ABG O2 Saturation ABG Base Excess ABG Hemoglobin ABG Oxyhemoglobin ABG Potassium ABG Glucose Oxyhemoglobin Carboxyhemoglobin Sodium Potassium Chloride 97.7 L Carbon Dioxide 38 H BUN Creatinine < 0.2 L Glucose 126 H POC Glucose 131 H Calcium Ferritin Total Bilirubin Alkaline Phosphatase Lactate Dehydrogenase Total Creatine Kinase CK-MB (CK-2) Rel Index Troponin T C-Reactive Protein Total Protein Albumin Prealbumin LDL Cholesterol Direct Arterial Blood Glucose Arterial Blood Ionized Calcium Urine WBC (Auto) 04/17/20 04/18/20 04/18/20 11:21 00:23 04:01 WBC 15.3 H RBC Hgb 10.1 L Hct 31.9 L MCV 82 L MCH 26 L RDW 17.2 H Plt Count 665 H Lymph % (Auto) 12.9 L [place] % (Auto) Lymph # (Auto) [place] # (Auto) 1.1 H Seg Neutrophils % 78.0 H Seg Neuts % (Manual) Lymphocytes % (Manual) Monocytes % (Manual) Basophils % (Manual) Seg Neutrophils # 11.9 H Seg Neutrophils # Man Lymphocytes # (Manual) Monocytes # (Manual) Eosinophils # (Manual) Basophils # (Manual) PT INR D-Dimer ABG pH POC ABG pCO2 POC ABG pO2 ABG pO2 ABG HCO3 ABG O2 Saturation ABG Base Excess ABG Hemoglobin ABG Oxyhemoglobin ABG Potassium ABG Glucose Oxyhemoglobin Carboxyhemoglobin Sodium Potassium Chloride Carbon Dioxide BUN Creatinine Glucose POC Glucose 140 H 125 H Calcium Ferritin Total Bilirubin Alkaline Phosphatase Lactate Dehydrogenase Total Creatine Kinase CK-MB (CK-2) Rel Index Troponin T C-Reactive Protein Total Protein Albumin Prealbumin LDL Cholesterol Direct Arterial Blood Glucose Arterial Blood Ionized Calcium Urine WBC (Auto) 04/18/20 04/18/20 04/18/20 04:01 11:29 17:30 WBC RBC Hgb Hct MCV MCH RDW Plt Count Lymph % (Auto) [place] % (Auto) Lymph # (Auto) [place] # (Auto) Seg Neutrophils % Seg Neuts % (Manual) Lymphocytes % (Manual) Monocytes % (Manual) Basophils % (Manual) Seg Neutrophils # Seg Neutrophils # Man Lymphocytes # (Manual) Monocytes # (Manual) Eosinophils # (Manual) Basophils # (Manual) PT INR D-Dimer ABG pH POC ABG pCO2 POC ABG pO2 ABG pO2 ABG HCO3 ABG O2 Saturation ABG Base Excess ABG Hemoglobin ABG Oxyhemoglobin ABG Potassium ABG Glucose Oxyhemoglobin Carboxyhemoglobin Sodium Potassium Chloride 97.0 L Carbon Dioxide 38 H BUN Creatinine < 0.2 L Glucose 117 H POC Glucose 136 H 107 H Calcium Ferritin Total Bilirubin Alkaline Phosphatase Lactate Dehydrogenase Total Creatine Kinase CK-MB (CK-2) Rel Index Troponin T C-Reactive Protein Total Protein Albumin Prealbumin LDL Cholesterol Direct Arterial Blood Glucose Arterial Blood Ionized Calcium Urine WBC (Auto) 04/18/20 04/19/20 04/19/20 23:19 06:51 06:51 WBC 12.2 H RBC Hgb 9.8 L Hct 31.1 L MCV 82 L MCH 26 L RDW 17.2 H Plt Count 549 H Lymph % (Auto) 6.5 L [place] % (Auto) Lymph # (Auto) 0.8 L [place] # (Auto) Seg Neutrophils % 86.7 H Seg Neuts % (Manual) Lymphocytes % (Manual) Monocytes % (Manual) Basophils % (Manual) Seg Neutrophils # 10.6 H Seg Neutrophils # Man Lymphocytes # (Manual) Monocytes # (Manual) Eosinophils # (Manual) Basophils # (Manual) PT INR D-Dimer ABG pH POC ABG pCO2 POC ABG pO2 ABG pO2 ABG HCO3 ABG O2 Saturation ABG Base Excess ABG Hemoglobin ABG Oxyhemoglobin ABG Potassium ABG Glucose Oxyhemoglobin Carboxyhemoglobin Sodium Potassium Chloride 97.8 L Carbon Dioxide 38 H BUN Creatinine < 0.2 L Glucose 123 H POC Glucose 127 H Calcium Ferritin Total Bilirubin Alkaline Phosphatase Lactate Dehydrogenase Total Creatine Kinase CK-MB (CK-2) Rel Index Troponin T C-Reactive Protein Total Protein Albumin Prealbumin LDL Cholesterol Direct Arterial Blood Glucose Arterial Blood Ionized Calcium Urine WBC (Auto) 04/19/20 04/19/20 04/20/20 13:41 18:33 05:56 WBC RBC Hgb Hct MCV MCH RDW Plt Count Lymph % (Auto) [place] % (Auto) Lymph # (Auto) [place] # (Auto) Seg Neutrophils % Seg Neuts % (Manual) Lymphocytes % (Manual) Monocytes % (Manual) Basophils % (Manual) Seg Neutrophils # Seg Neutrophils # Man Lymphocytes # (Manual) Monocytes # (Manual) Eosinophils # (Manual) Basophils # (Manual) PT INR D-Dimer ABG pH POC ABG pCO2 POC ABG pO2 ABG pO2 ABG HCO3 ABG O2 Saturation ABG Base Excess ABG Hemoglobin ABG Oxyhemoglobin ABG Potassium ABG Glucose Oxyhemoglobin Carboxyhemoglobin Sodium Potassium Chloride Carbon Dioxide BUN Creatinine Glucose POC Glucose 116 H 124 H 130 H Calcium Ferritin Total Bilirubin Alkaline Phosphatase Lactate Dehydrogenase Total Creatine Kinase CK-MB (CK-2) Rel Index Troponin T C-Reactive Protein Total Protein Albumin Prealbumin LDL Cholesterol Direct Arterial Blood Glucose Arterial Blood Ionized Calcium Urine WBC (Auto) 04/20/20 04/20/20 04/20/20 06:28 06:28 11:46 WBC RBC Hgb 10.2 L Hct 31.5 L MCV 82 L MCH 27 L RDW 17.1 H Plt Count 546 H Lymph % (Auto) 10.0 L [place] % (Auto) 9.8 H Lymph # (Auto) 1.1 L [place] # (Auto) 1.1 H Seg Neutrophils % 78.4 H Seg Neuts % (Manual) Lymphocytes % (Manual) Monocytes % (Manual) Basophils % (Manual) Seg Neutrophils # 8.5 H Seg Neutrophils # Man Lymphocytes # (Manual) Monocytes # (Manual) Eosinophils # (Manual) Basophils # (Manual) PT INR D-Dimer ABG pH POC ABG pCO2 POC ABG pO2 ABG pO2 ABG HCO3 ABG O2 Saturation ABG Base Excess ABG Hemoglobin ABG Oxyhemoglobin ABG Potassium ABG Glucose Oxyhemoglobin Carboxyhemoglobin Sodium Potassium Chloride 97.0 L Carbon Dioxide 38 H BUN Creatinine < 0.2 L Glucose 138 H POC Glucose 130 H Calcium Ferritin Total Bilirubin Alkaline Phosphatase Lactate Dehydrogenase Total Creatine Kinase CK-MB (CK-2) Rel Index Troponin T C-Reactive Protein Total Protein Albumin Prealbumin LDL Cholesterol Direct Arterial Blood Glucose Arterial Blood Ionized Calcium Urine WBC (Auto) 04/20/20 04/21/20 04/21/20 23:31 05:55 05:55 WBC RBC Hgb 10.0 L Hct 31.1 L MCV 82 L MCH 26 L RDW 17.0 H Plt Count 535 H Lymph % (Auto) [place] % (Auto) 9.2 H Lymph # (Auto) 1.1 L [place] # (Auto) Seg Neutrophils % 75.4 H Seg Neuts % (Manual) Lymphocytes % (Manual) Monocytes % (Manual) Basophils % (Manual) Seg Neutrophils # Seg Neutrophils # Man Lymphocytes # (Manual) Monocytes # (Manual) Eosinophils # (Manual) Basophils # (Manual) PT INR D-Dimer ABG pH POC ABG pCO2 POC ABG pO2 ABG pO2 ABG HCO3 ABG O2 Saturation ABG Base Excess ABG Hemoglobin ABG Oxyhemoglobin ABG Potassium ABG Glucose Oxyhemoglobin Carboxyhemoglobin Sodium Potassium Chloride 95.0 L Carbon Dioxide 34 H BUN Creatinine < 0.2 L Glucose 125 H POC Glucose 116 H Calcium Ferritin Total Bilirubin Alkaline Phosphatase Lactate Dehydrogenase Total Creatine Kinase CK-MB (CK-2) Rel Index Troponin T C-Reactive Protein Total Protein Albumin Prealbumin LDL Cholesterol Direct Arterial Blood Glucose Arterial Blood Ionized Calcium Urine WBC (Auto) 04/22/20 04/22/20 04/22/20 00:01 07:45 07:45 WBC RBC Hgb 10.0 L Hct 30.7 L MCV 81 L MCH 27 L RDW 17.1 H Plt Count 490 H Lymph % (Auto) [place] % (Auto) Lymph # (Auto) [place] # (Auto) Seg Neutrophils % Seg Neuts % (Manual) 75.0 H Lymphocytes % (Manual) 11.0 L Monocytes % (Manual) 9.0 H Basophils % (Manual) Seg Neutrophils # Seg Neutrophils # Man Lymphocytes # (Manual) 0.8 L Monocytes # (Manual) Eosinophils # (Manual) Basophils # (Manual) PT INR D-Dimer ABG pH POC ABG pCO2 POC ABG pO2 ABG pO2 ABG HCO3 ABG O2 Saturation ABG Base Excess ABG Hemoglobin ABG Oxyhemoglobin ABG Potassium ABG Glucose Oxyhemoglobin Carboxyhemoglobin Sodium Potassium Chloride 96.3 L Carbon Dioxide 40 H BUN Creatinine < 0.2 L Glucose 109 H POC Glucose 110 H Calcium Ferritin Total Bilirubin Alkaline Phosphatase Lactate Dehydrogenase Total Creatine Kinase CK-MB (CK-2) Rel Index Troponin T C-Reactive Protein Total Protein Albumin Prealbumin LDL Cholesterol Direct Arterial Blood Glucose Arterial Blood Ionized Calcium Urine WBC (Auto) Chest x-ray: other (none today) Allied health notes reviewed: nursing
[2020-04-22] MEDS: SENNOSIDES 8.6 MG TAB PO SCH (22:32)
[2020-04-22] MEDS: ENOXAPARIN 40 MG/0.4 ML INJ SUB-Q SCH (22:33)
[2020-04-22] MEDS: ZOLPIDEM 5 MG TAB PO PRN (22:36)
[2020-04-23] MEDS: MORPHINE 2 MG/1 ML INJ IV PRN ×3 (04:36→20:28)
[2020-04-23 04:50] LABS: Hematocrit 29.4 % (35.5-45.6); Hemoglobin 9.7 gm/dl (11.8-15.2); Mean Corpuscular HGB Conc 33 % (32-34); Mean Corpuscular Volume 81 fl (84-94); Platelet Count 527 K/mm3 (140-440); Red Blood Count 3.64 M/mm3 (3.65-5.03); Red Cell Distribution Width 17.2 % (13.2-15.2)
[2020-04-23 05:05] LABS: Basophils # (Auto) 0.1 K/mm3 (0.0-0.1); Basophils % (Auto) 0.7 % (0.0-1.8); Eosinophils # (Auto) 0.2 K/mm3 (0.0-0.4); Eosinophils % (Auto) 2.1 % (0.0-4.3); Lymphocytes # (Auto) 1.9 K/mm3 (1.2-5.4); Lymphocytes % (Auto) 23.6 % (13.4-35.0); Monocytes # (Auto) 0.7 K/mm3 (0.0-0.8); Monocytes % (Auto) 8.9 % (0.0-7.3)
[2020-04-23 05:09] LABS: Blood Urea Nitrogen 15 mg/dL (9-20); Calcium 8.9 mg/dL (8.4-10.2); Hemolysis Index 2
[2020-04-23 05:22] LABS: BUN/Creatinine Ratio 75
[2020-04-23 05:46] LABS: Chol/HDL Ratio 3.58 %
[2020-04-23] MEDS: GLYCOPYRROLATE 1 MG TAB PO SCH ×3 (08:19→20:09)
[2020-04-23] MEDS: MAGIC MOUTHWASH 30ML PO SCH ×3 (08:19→20:09)
--- NOTE | 2020-04-23 10:09 | Progress Note ---
Assessment and Plan Assessment and plan: --Acute hypoxic hypercapnic respiratory failure; S/p tracheostomy on ventilatory support etiology secondary to sepsis, ALS, multifocal pneumonia (Covid negative). Pulmonary following --ALS --Oral thrush Nystatin/Magic mouthwash swish and spit --Constipation; Patient already received Dulcolax suppository and Colace Received milk of magnesia, with relief --History of ALS - Stable --Elevated D-dimers; imaging studies negative for PE and DVT --Bilateral pneumonia; probably community-acquired Completed the treatment, continue supportive care --Sepsis secondary to pneumonia; completed the treatment resolved --Elevated troponin non-ST elevation OK type II Continue current management --Febrile illness; resolved ,secondary to pneumonia Complete antibiotics , resolved --DVT prophylaxis; Lovenox. 02/25/2020. CTA of the chest reveals no PE but does illustrate the bilateral pneumonia. Doppler ultrasound also negative for DVT. Blood cultures are pending. Await COVID-19 testing. Patient currently requiring BiPAP IPAP 24/EPAP 6 with FiO2 of 25%. Continue O2 and BiPAP as clinically indicated. ID and pulmonary consulted. 02/26/2020. Blood cultures are negative x48 hours and Covid testing negative as well. Continue antibiotics per ID recommendations for community-acquired bilate ral pneumonia. Cardiology consultation for elevated troponin. Check echocardiogram. 02/27/2020. Events of yesterday noted with asystole following V. fib arrest. Patient currently on AC mode rate 20, tidal volume 400, FiO2 50% and a PEEP of 6. Follow-up echocardiogram for elevated troponin. Cardiology suspects NSTEMI Type 2 in the setting of acute resp failure. Chest CTA and BLE Dopplers neg. we will discontinue Decadron given the Covid PCR is negative. 02/28/2020. I spoke with the sister Felisa Eli who is the power of deputy commonwealth's attorney regarding advanced directives and she instructed me that she would like to continue with aggressive care at this time. I informed her of the guarded prognosis and high mortality/morbidity and she voiced understanding. Patient currently with AC mode ventilation rate 18, tidal volume 400, FiO2 40% and a PEEP of 6. Continue antibiotics for pneumonia. ID previously consulted. Also consult neurology with regards to ALS. 02/29/2020; patient is intubated and on CPAP patient is alert and oriented. Patient has ALS. Dr. Álvarez spoke with his sister and she wants aggressive care. Continue antibiotics for pneumonia. Neurology consulted for ALS. Progno sis poor 03/01/2020; patient is intubated and on CPAP, patient is alert and oriented. I spoke with his 2 sisters about the management plan. 03/02/2020; patient is intubated and on CPAP. Patient was alert and oriented. I spoke with Dr. mohr and he thinks patient may need mechanical ventilat ion, likely his disease progressed. Dr. Flowers did debridement this morning. 03/03/2020; patient is intubated and on CPAP, patient was on trilogy and BiPAP at home. Patient has ALS. on spontaneous breathing trial. Patient is alert and oriented but quadriplegic. Patient has severe bilateral pneumonia and is on cefepime and Vanco, ID is following. Patient has sacral decubitus ulcer and debridement was done by Dr. Flowers and there is no osteomyelitis. 03/05. Patient still on broad-spectrum antibiotics. Status post sacral decubitus ulcer debridements-no osteomyelitis. Patient is on AC 25/400/30% PEEP 5. No blood gas results today. 03/06. Plan for tracheostomy by surgery. Still remains intubated. Labs reviewed-sodium 150. Started on free water 200 every 8hr. trend sodium. 03/07: s/p trach placement today, patient placed back on mechanical ventilation with trach. Plan to resume tube feeding with NG tube. Continue to monitor vitals, monitor BMP. 03/08: Patient noted to have distended abdomen with low urinary output. Obtain bladder scan rule out urine retention, UA and urine culture, continue to follow clinically. 03/09: Patient noted to have low blood pressure with SBP as low as 70s. Ordered for 500 mils normal saline bolus. CT abdomen showed bladder outlet obstruction, urology consulted. 03/10: placed on drake by urology o/n, improved urine outpt. cont to monitor BMP. resuded TF - cont free water with TF. wean off from vent as tolerated. 03/11: Vitals stable. cont TF, wean off from vent as tolerated. start on 1/2 NS for hypernatremia - follow BMP 03/12: wean off vent as tolerated, plan for speech eval, cont Tf for now, cont iv fluid 03/13: unable to wean off from vent, unable to do speech therapy eval. will need PEG tube, cont supportive care for now, cont NG tube feeding 03/14: consulted GI for PEg placemnet, cont supportive care. remains on vent at night 03/15: Discussed with GI, plan for PEG tube placement possibly tomorrow. Continue supportive care and wean off from vent as tolerated. Hold Lovenox dose tonight. 03/16: family didnot consent for PEG placement yesterday. I spoke with the daughter today and she is now agreeable for PEG tube. I explained the necessity of the procedure with RN to the patient also and he nodded started on tube feeding, for the procedure. will cont supportive care. planned for PEG tube placement tomorrow. 03/17: s/p PEG placement today, patient tolerated well, cont supportive care 03/18: Started on tube feeding with new PEG tube, continue to wean off vent as tolerated 03/19: cont to monitor with supportive care, wean off vent as tolerated 03/20: Continue to wean off vent as tolerated -but failing weaning trial. Still requiring vent support at night. Currently on PEG tube for tube feed. 03/21. Pt with PSV trials with FiO@ 30%, PEEP 6, PS 10. Currently on PEG tube for tube feed. 03/22/2020. Continue PSV trials per pulmonary. Continue bronchodilators. Patient tolerating tube feedings. Continue Robinul for secretion control. 03/23/2020. Continue PSV trials per pulmonary. Continue bronchodilators. Continue Scopolamine and Robinul for secretion control. Trach care/airway management. Mobility protocols for pressure ulcer prophylaxis. LTAC evaluation per case management 03/24/2020. Continue PSV trials with current settings pressure support 10, PEEP 6 and FiO2 30%. Continue bronchodilators/nebulizer. Continue Scopolamine and Robinul for secretion control. Trach care/airway management. Mobility protocols for pressure ulcer prophylaxis. LTAC evaluation per case management 03/25/2020. Pulmonary to proceed with T-piece trials today. Continue bronchodi lators/nebulizer. Continue Scopolamine and Robinul for secretion control. Trach care/airway management. Mobility protocols for pressure ulcer prophylaxis. 03/26/2020. Patient currently with PSV 10/6 at FiO2 of 30%. Continue weaning and T-piece trials per protocol. Continue bronchodilators/nebulizer. Continue Scopolamine and Robinul for secretion control. Trach care/airway management. Mobility protocols for pressure ulcer prophylaxis. Continue tube feeding with aspiration precautions. 03/27/2020. Patient currently with PSV 01/31 at FiO2 of 30%. Continue weaning and T-piece trials per protocol. Continue bronchodilators/nebulizer. Continue Scopolamine and Robinul for secretion control. Trach care/airway management. Mobility protocols for pressure ulcer prophylaxis. Continue tube feeding with aspiration precautions. 03/28. Had temp 100.7F. He has been off antibiotics. Will send blood culture, ua, urine culture and chest xray. Had chest pain overnight and trop was elevated as well. Cardiology to evaluate 03/29. Has back pain due to position. He mentions his chest pain is positional. Has no other complaints. Still on mechanical ventilation 03/30. No chest pain today. Labs reviewed. Discussed chest pain with cardiology and team advised no further work up at this time. Can follow up with cardiology in the office after hospitalization 03/31. Lidocaine patch for lower back pain. 04/01. Discharge planning underway. CM notes reviewed. Discussed with daughter 04/02 - . CM trying to arrange discharge. Continue PSV trials. Discussed with patients significant other 04/04/2020; CM is working for discharge arrangement. Continue PSV trials. 04/05/2020; patient was seen and evaluated this morning and no change from baseline. Continue with PSV trials. Follow with cook room supervisor for discharge planning. 04/06/2020;patient was seen and evaluated this morning and no change from baseline. Continue with PSV trials. Follow with cook room supervisor for discharge planning. 04/07/2020; patient was seen and evaluated this morning and no change from baseline. Continue with PSV trials. Follow with cook room supervisor for discharge planning. 04/08/2020; patient is vent dependent. Discharge is per cook room supervisor. 04/09/2020 patient is vent dependent, possible LTAC placement 04/10/2020; tracheostomy on vent, vent dependent pending LTAC placement 04/11/2020; clinically no change, tracheostomy on ventilatory support, wean as tolerated, awaiting placement 04/12/2020; remains on ventilatory support, unable to wean, patient wants to see a speech therapist for sound box However we cannot try that as long as he is on ventilatory support, once he is weaned off vent We will consult speech therapist, plan of care reviewed with the patient and his nurse 04/14/2020; clinically no change, on ventilatory support, complains of constipation, milk of magnesia Closely monitor the patient and adjust the management as needed 04/15/2020; patient has some oral thrush on the tongue, will give Magic mouthwash/nystatin swish and spit Wean off vent as tolerated 04/16 patient is alert and oriented, unable to comprehend what he is trying to tell but appears to complain of some pain, no acute events overnight, all interdisciplinary notes reviewed. Waiting for LTAC versus jail f acility placement 04/17/2020. Continue supportive care with mechanical ventilation. Patient currently on AC mode rate 10, tidal volume 400 FiO2 30% with a PEEP of 6. Discharge planning per case management. 04/18/2020. Patient remains on mechanical ventilation AC mode rate 10, tidal volume 400, FiO2 30% and PEEP of 6. Continue spontaneous breathing trials as tolerated. Previously, patient was considered for discharge home with skilled staff providing care for 12 hours 7 days/week. Continue discussed with case management discharge planning. 04/19/20. Patient remains on mechanical ventilation AC mode rate 10, tidal volume 400, FiO2 30% and PEEP of 6. Continue spontaneous breathing trials as tolerated. 04/20/2020. Patient remains on mechanical ventilation AC mode rate 10, tidal volume 400, FiO2 30% and PEEP of 6. Continue spontaneous breathing trials as tolerated. 04/21/2020. Patient remains on mechanical ventilation AC mode rate 10, tidal volume 400, FiO2 30% and PEEP of 6. Continue tracheostomy care, secretion control and airway management. Continue spontaneous breathing trials as tolerated. 04/22/2020. Patient remains on mechanical ventilation AC mode rate 10, tidal volume 400, FiO2 30% and PEEP of 6. Continue tracheostomy care, secretion control and airway management. Continue spontaneous breathing trials as tolerated. 04/23/2020. Patient on mechanical ventilation AC mode rate 18, tidal volume 450, FiO2 30% and PEEP of 6. Continue tracheostomy care, secretion control and airway management. Continue spontaneous breathing trials as tolerated. Continue Robinul and scopolamine for secretions. Continue baclofen. The high probability of a clinically significant, sudden or life threatening deterioration of the [cardiac and respiratory] system(s) required my full and direct attention, intervention and personal management. The aggregate critical care time was [31] minutes. 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 Fifi ent was on a trilogy machine for breathing 18/11. EMS arrived, patient had O2 sats in the 80s. EMS attempted to place patient on their CPAP machine, however patient did not tolerate. Patient was admitted to the ICU with diagnosis of acute hypoxic respiratory failure and placed on BiPAP. Patient initially tolerated but later deteriorated with respiratory status. CTA chest showed no PE but significant for bilateral pneumonia. Doppler ultrasound also negative for DVT. COVID-19 test ordered. Due to persistent hypoxia, patient was intubated on 02/26/2020 at 1500. Patient now on mechanical ventilation in the ICU s/p trach placement and now unable to wean off from the mechanical ventilation. Patient now status post PEG placement for tube feeding. Pending long-term placement -LTAC versus SNF Hospitalist Physical - Constitutional Vitals: Temp Pulse Resp BP Pulse Ox 97.6 F 93 H 13 107/75 100 04/23/20 04:00 04/23/20 09:00 04/23/20 09:00 04/23/20 09:00 04/23/20 08:00 General appearance: Present: no acute distress, cachectic - EENT Eyes: Present: PERRL, EOM intact ENT: hearing intact, clear oral mucosa, dentition normal - Neck Neck: Present: supple, normal ROM - Respiratory Respiratory effort: normal Respiratory: bilateral: CTA - Cardiovascular Rhythm: regular Heart Sounds: Present: S1 & S2. Absent: gallop, rub - Extremities Extremities: no ischemia, No edema, Full ROM - Abdominal General gastrointestinal: soft, non-tender, non-distended, normal bowel sounds - Integumentary Integumentary: Present: clear, warm, dry - Neurologic Neurologic: CNII-XII intact, moves all extremities HEART Score - HEART Score Troponin: Troponin T 0.151 ng/mL (0.00-0.029) H* 04/23/20 04:28 Results - Labs CBC & Chem 7: 04/23/20 04:28 04/23/20 04:28 Labs: Laboratory Last Values WBC 8.0 K/mm3 (4.5-11.0) 04/23/20 04:28 RBC 3.64 M/mm3 (3.65-5.03) L 04/23/20 04:28 Hgb 9.7 gm/dl (11.8-15.2) L 04/23/20 04:28 Hct 29.4 % (35.5-45.6) L 04/23/20 04:28 MCV 81 fl (84-94) L 04/23/20 04:28 MCH 27 pg (28-32) L 04/23/20 04:28 MCHC 33 % (32-34) 04/23/20 04:28 RDW 17.2 % (13.2-15.2) H 04/23/20 04:28 Plt Count 527 K/mm3 (140-440) H 04/23/20 04:28 Lymph % (Auto) 23.6 % (13.4-35.0) 04/23/20 04:28 Gray % (Auto) 8.9 % (0.0-7.3) H 04/23/20 04:28 Eos % (Auto) 2.1 % (0.0-4.3) 04/23/20 04:28 Baso % (Auto) 0.7 % (0.0-1.8) 04/23/20 04:28 Lymph # (Auto) 1.9 K/mm3 (1.2-5.4) 04/23/20 04:28 Gray # (Auto) 0.7 K/mm3 (0.0-0.8) 04/23/20 04:28 Eos # (Auto) 0.2 K/mm3 (0.0-0.4) 04/23/20 04:28 Baso # (Auto) 0.1 K/mm3 (0.0-0.1) 04/23/20 04:28 Add Manual Diff Complete 04/22/20 07:45 Total Counted 100 04/22/20 07:45 Seg Neutrophils % 64.7 % (40.0-70.0) 04/23/20 04:28 Seg Neuts % (Manual) 75.0 % (40.0-70.0) H 04/22/20 07:45 Band Neutrophils % 1.0 % 04/22/20 07:45 Lymphocytes % (Manual) 11.0 % (13.4-35.0) L 04/22/20 07:45 Reactive Lymphs % (Man) 1.0 % 04/22/20 07:45 Monocytes % (Manual) 9.0 % (0.0-7.3) H 04/22/20 07:45 Eosinophils % (Manual) 2.0 % (0.0-4.3) 04/22/20 07:45 Basophils % (Manual) 1.0 % (0.0-1.8) 04/22/20 07:45 Metamyelocytes % 3.0 % 04/12/20 09:07 Myelocytes % 0 % 03/28/20 10:28 Promyelocytes % 0 % 03/28/20 10:28 Blast Cells % 0 % 03/28/20 10:28 Nucleated RBC % Not Reportable 04/22/20 07:45 Seg Neutrophils # 5.2 K/mm3 (1.8-7.7) 04/23/20 04:28 Seg Neutrophils # Man 5.7 K/mm3 (1.8-7.7) 04/22/20 07:45 Band Neutrophils # 0.1 K/mm3 04/22/20 07:45 Lymphocytes # (Manual) 0.8 K/mm3 (1.2-5.4) L 04/22/20 07:45 Abs React Lymphs (Man) 0.1 K/mm3 04/22/20 07:45 Monocytes # (Manual) 0.7 K/mm3 (0.0-0.8) 04/22/20 07:45 Eosinophils # (Manual) 0.2 K/mm3 (0.0-0.4) 04/22/20 07:45 Basophils # (Manual) 0.1 K/mm3 (0.0-0.1) 04/22/20 07:45 Metamyelocytes # 0.0 K/mm3 04/22/20 07:45 Myelocytes # 0.0 K/mm3 04/22/20 07:45 Promyelocytes # 0.0 K/mm3 04/22/20 07:45 Blast Cells # 0.0 K/mm3 04/22/20 07:45 WBC Morphology Not Reportable 04/22/20 07:45 Hypersegmented Neuts Not Reportable 04/22/20 07:45 Hyposegmented Neuts Not Reportable 04/22/20 07:45 Hypogranular Neuts Not Reportable 04/22/20 07:45 Smudge Cells Not Reportable 04/22/20 07:45 Toxic Granulation Not Reportable 04/22/20 07:45 Toxic Vacuolation Not Reportable 04/22/20 07:45 Dohle Bodies Not Reportable 04/22/20 07:45 Pelger-Huet Anomaly Not Reportable 04/22/20 07:45 Robert Rods Not Reportable 04/22/20 07:45 Platelet Estimate Consistent w auto 04/22/20 07:45 Clumped Platelets Few 04/22/20 07:45 Plt Clumps, EDTA Not Reportable 04/22/20 07:45 Large Platelets Not Reportable 04/22/20 07:45 Giant Platelets Not Reportable 04/22/20 07:45 Platelet Satelliting Not Reportable 04/22/20 07:45 Plt Morphology Comment Not Reportable 04/22/20 07:45 RBC Morphology Normal 04/22/20 07:45 Dimorphic RBCs Not Reportable 04/22/20 07:45 Polychromasia Not Reportable 04/22/20 07:45 Hypochromasia Not Reportable 04/22/20 07:45 Poikilocytosis Not Reportable 04/22/20 07:45 Anisocytosis Not Reportable 04/22/20 07:45 Microcytosis Not Reportable 04/22/20 07:45 Macrocytosis Not Reportable 04/22/20 07:45 Spherocytes Not Reportable 04/22/20 07:45 Pappenheimer Bodies Not Reportable 04/22/20 07:45 Sickle Cells Not Reportable 04/22/20 07:45 Target Cells Not Reportable 04/22/20 07:45 Stomatocytes Few 03/17/20 04:40 Tear Drop Cells Not Reportable 04/22/20 07:45 Ovalocytes Not Reportable 04/22/20 07:45 Helmet Cells Not Reportable 04/22/20 07:45 [place] Bodies Not Reportable 04/22/20 07:45 [place] Rings Not Reportable 04/22/20 07:45 [place] Cells Not Reportable 04/22/20 07:45 Bite Cells Not Reportable 04/22/20 07:45 Crenated Cell Not Reportable 04/22/20 07:45 Elliptocytes Not Reportable 04/22/20 07:45 Acanthocytes (Spur) Not Reportable 04/22/20 07:45 Rouleaux Not Reportable 04/22/20 07:45 Hemoglobin C Crystals Not Reportable 04/22/20 07:45 Schistocytes Not Reportable 04/22/20 07:45 Malaria parasites Not Reportable 04/22/20 07:45 [place] Bodies Not Reportable 04/22/20 07:45 Hem Pathologist Commnt No 04/22/20 07:45 PT 15.6 Sec. (12.2-14.9) H 02/24/20 09:19 INR 1.21 (0.87-1.13) H 02/24/20 09:19 APTT 25.4 Sec. (24.2-36.6) 02/24/20 09:19 D-Dimer 1311.96 ng/mlDDU (0-234) H 02/24/20 09:19 ABG pH 7.371 (7.320-7.450) 03/08/20 12:34 POC ABG pCO2 63.1 mmHg (32.0-48.0) H 03/08/20 12:34 ABG pCO2 60.1 mm Hg 03/06/20 04:34 POC ABG pO2 90.5 mmHg (83-108) 03/08/20 12:34 ABG pO2 88.6 mm Hg (80.0-90.0) 03/06/20 04:34 POC ABG HCO3 35.7 03/08/20 12:34 ABG HCO3 37.9 mmol/L (20.0-26.0) H 03/06/20 04:34 ABG O2 Saturation 97.0 % (95.0-99.0) 03/06/20 04:34 ABG O2 Content 14.3 (0.0-44) 03/06/20 04:34 POC ABG Base Excess 8.7 03/08/20 12:34 ABG Base Excess 11.4 mmol/L (-2.0-3.0) H 03/06/20 04:34 ABG Hemoglobin 10.9 (12.0-17.5) L 03/08/20 12:34 ABG Oxyhemoglobin 95.9 (94-98) 03/08/20 12:34 ABG Carboxyhemoglobin 1.7 % (0.0-5.0) 03/06/20 04:34 ABG Methemoglobin 0.3 (0.0-1.5) 03/08/20 12:34 ABG Sodium 143.6 mmol/L (136.0-145.0) 03/08/20 12:34 ABG Potassium 3.8 mmol/L (3.40-4.50) 03/08/20 12:34 ABG Chloride 102.0 mmol/L (98-107) 03/08/20 12:34 ABG Glucose 176 mg/dL (65-95) H 03/08/20 12:34 Oxyhemoglobin 94.7 % (95.0-99.0) L 03/06/20 04:34 Carboxyhemoglobin 0.7 (0.5-1.5) 03/08/20 12:34 FiO2 30 03/08/20 12:34 Sodium 138 mmol/L (137-145) 04/23/20 04:28 Potassium 4.0 mmol/L (3.6-5.0) 04/23/20 04:28 Chloride 96.4 mmol/L (98-107) L 04/23/20 04:28 Carbon Dioxide 32 mmol/L (22-30) H D 04/23/20 04:28 Anion Gap 14 mmol/L 04/23/20 04:28 BUN 15 mg/dL (9-20) 04/23/20 04:28 Creatinine < 0.2 mg/dL (0.8-1.3) L 04/23/20 04:28 Estimated GFR > 60 ml/min 04/23/20 04:28 BUN/Creatinine Ratio 75 % 04/23/20 04:28 Glucose 134 mg/dL (75-100) H 04/23/20 04:28 POC Glucose 132 mg/dL (70-105) H 04/23/20 06:03 Lactic Acid 1.00 mmol/L (0.7-2.0) 02/24/20 12:07 Calcium 8.9 mg/dL (8.4-10.2) 04/23/20 04:28 Phosphorus 3.30 mg/dL (2.5-4.5) 03/29/20 14:35 Magnesium 1.90 mg/dL (1.7-2.3) 04/12/20 09:07 Ferritin 1715.0 ng/mL (30.0-300.0) H 02/24/20 10:01 Total Bilirubin 0.20 mg/dL (0.1-1.2) 04/12/20 09:07 AST 15 units/L (5-40) 04/12/20 09:07 ALT 15 units/L (7-56) 04/12/20 09:07 Alkaline Phosphatase 62 units/L (35-129) 04/12/20 09:07 Lactate Dehydrogenase 303 units/L (91-180) H 02/24/20 09:19 Total Creatine Kinase 47 units/L (55-170) L 03/28/20 17:17 CK-MB (CK-2) 2.2 ng/mL (0.0-4.0) 03/28/20 17:17 CK-MB (CK-2) Rel Index 4.6 (0-4) H 03/28/20 17:17 Troponin T 0.151 ng/mL (0.00-0.029) H* 04/23/20 04:28 C-Reactive Protein 4.70 mg/dL (0.00-1.30) H 02/28/20 11:05 NT-Pro-B Natriuret Pep 48.30 pg/mL (0-900) 02/24/20 09:19 Total Protein 6.7 g/dL (6.3-8.2) 04/12/20 09:07 Albumin 2.7 g/dL (3.9-5) L 04/12/20 09:07 Albumin/Globulin Ratio 0.7 % 04/12/20 09:07 Prealbumin 0.090 g/L (0.200-0.400) L 02/28/20 12:54 Triglycerides 62 mg/dL (2-149) 04/23/20 04:28 Cholesterol 104 mg/dL (50-199) 04/23/20 04:28 LDL Cholesterol Direct 66 mg/dL (50-130) 04/23/20 04:28 HDL Cholesterol 29 mg/dL (40-59) L 04/23/20 04:28 Cholesterol/HDL Ratio 3.58 % 04/23/20 04:28 Procalcitonin < 0.05 ng/mL (<0.15) 03/28/20 17:12 Arterial Blood Glucose 176 mg/dL (65-95) H 03/08/20 12:34 Arterial Blood Ionized Calcium 4.5 mg/dL (4.6-5.3) L 03/08/20 12:34 Urine Color Yellow (Yellow) 03/28/20 11:36 Urine Turbidity Hazy (Clear) 03/28/20 11:36 Urine pH 5.0 (5.0-7.0) 03/28/20 11:36 Ur Specific [place] 1.026 (1.003-1.030) 03/28/20 11:36 Urine Protein 100 mg/dl mg/dL (Negative) 03/28/20 11:36 Urine Glucose (UA) Neg mg/dL (Negative) 03/28/20 11:36 Urine Ketones Neg mg/dL (Negative) 03/28/20 11:36 Urine Blood Neg (Negative) 03/28/20 11:36 Urine Nitrite Neg (Negative) 03/28/20 11:36 Urine Bilirubin Neg (Negative) 03/28/20 11:36 Urine Urobilinogen 4.0 mg/dL (<2.0) 03/28/20 11:36 Ur Leukocyte Esterase Mod (Negative) 03/28/20 11:36 Urine WBC (Auto) 39.0 /HPF (0.0-6.0) H 03/28/20 11:36 Urine RBC (Auto) 16.0 /HPF (0.0-6.0) 03/28/20 11:36 U Epithel Cells (Auto) < 1.0 /HPF (0-13.0) 03/08/20 08:57 Urine Bacteria (Auto) 2+ /HPF (Negative) 03/28/20 11:36 Urine Mucus 3+ /HPF 03/28/20 11:36 Urine Yeast (Budding) 2+ /HPF 03/28/20 11:36 Vancomycin Trough 8.0 ug/mL (5.0-20.0) 03/04/20 08:59 Coronavirus (PCR) Negative (Negative) 02/25/20 09:03 - Diagnostic Impressions Diagnostic Impressions: Echocardiogram 02/26/20 10:41 Transthoracic Echocardiogram Indication: Elevated Trop BP: 116/75 HR: 85 Conclusions *Global left ventricular wall motion and contractility are within normal limits. *The estimated ejection fraction is 50-55%. *Abnormal left ventricular diastolic filling is observed, consistent with impaired relaxation. *There is no pericardial effusion. Findings Left Ventricle: The left ventricular chamber size is normal. Global left ventricular wall motion and contractility are within normal limits. Global left ventricular systolic function is normal. The estimated ejection fraction is 50-55%. Abnormal left ventricular diastolic filling is observed, consistent with impaired relaxation. Left Atrium: The left atrial chamber size is normal. Right Ventricle: The right ventricular cavity size is normal. Right Atrium: The right atrial cavity size is normal. Aortic Valve: Mild aortic leaflet calcification is visualized. There is no evidence of aortic regurgitation. Mitral Valve: The mitral valve leaflets are mildly thickened. There is no evidence of mitral regurgitation. Tricuspid Valve: The tricuspid valve leaflets are normal. There is trace tricuspid regurgitation. The right ventricular systolic pressure is calculated at 29 mmHg. Pulmonic Valve: The pulmonic valve is not well visualized. Pericardium: There is no pericardial effusion. Aorta: The aorta appears normal. Venous: The inferior vena cava is dilated. There is less than 50% respiratory change in the inferior vena cava dimension. Measurements Chambers 2D Name Value Normal Range IVSd (2D) 0.97 cm (0.6 - 1.1) LVPWd (2D) 0.93 cm (0.6 - 1.1) LVIDd (2D) 4 cm (3.7 - 5.6) LVIDs (2D) 2.73 cm (2 - 3.8) LV FS (2D) 31.67 % - EF Teichholz (2D) 60.23 % - Ao root diameter (2D) 3.51 cm (2 - 3.7) Volumes/Mass Name Value Normal Range LA ESV SP 4CH (A/L) 8.43 ml - LA ESV SP 2CH (A/L) 18.89 ml - LA ESV BP (A/L) 13.02 ml - LA ESV BP (A/L) index 8.8 ml/m2 - LA ESV SP 4CH (MOD) 7.22 ml - LA ESV SP 2CH (MOD) 18.15 ml - LA ESV BP (MOD) 11.47 ml - LA ESV BP (MOD) index 7.75 ml/m2 - Diastolic/Systolic Function Name Value Normal Range MV E-wave Vmax 0.51 m/sec - MV deceleration time 180.22 msec - MV A-wave Vmax 0.62 m/sec - MV E:A ratio 0.82 ratio - Aortic Valve Name Value Normal Range AV Vmax 1.17 m/sec - AV VTI 19.71 cm - AV peak gradient 5.44 mmHg - AV mean gradient 3.38 mmHg - LVOT diameter 2.26 cm - LVOT Vmax 0.89 m/sec - LVOT VTI 13.72 cm - LVOT peak gradient 3.17 mmHg - LVOT mean gradient 1.67 mmHg - SV LVOT 55.03 ml - SHARAD (continuity Vmax) 3.06 cm2 - SHARAD (continuity VTI) 2.79 cm2 - Tricuspid Valve Name Value Normal Range TR Vmax 2.3 m/sec - TR peak gradient 21 mmHg - RAP 8 mmHg - RVSP 29 mmHg - IVC diameter 2.59 cm (1.2 - 2.3) Pulmonic Valve/Qp:Qs Name Value Normal Range PV acceleration time 68.51 msec - Drake/IV: Voiding Method Indwelling Catheter IV Catheter Type [Right Wrist] INT / Saline Lock IV Catheter Type [Left Hand] Peripheral IV IV Catheter Type [Right Hand] Peripheral IV IV Catheter Type [Left Wrist] Peripheral IV IV Catheter Type [Right Peripheral IV Forearm] IV Catheter Type [Right Triple Lumen Cath Internal Jugular] IV Catheter Type [Left Forearm INT / Saline Lock ] IV Catheter Type [Right Triple Lumen Cath Femoral] IV Catheter Type [Right INT / Saline Lock Antecubital] Active Medications - Current Medications Current Medications: Generic Name Dose Route Start Last Admin Trade Name Freq PRN Reason Stop Dose Admin Acetaminophen 650 mg 02/24/20 15:13 04/21/20 21:32 Acetaminophen 325 Mg Tab PO 650 mg Q4H PRN Administration Pain, Mild (1-3) Albuterol 2.5 mg 02/24/20 15:13 Albuterol 2.5 Mg/3 Ml Nebu IH Q4HRT PRN Shortness Of Breath Alprazolam 0.5 mg 03/30/20 14:19 04/22/20 22:33 Xanax PO 0.5 mg Q8H PRN Administration Anxiety Lipase/Protease/Amylase 1 each 02/26/20 11:[address] 10,500 Unit FEEDTUBE PRN PRN For Clogged Feeding Tube Baclofen 10 mg 04/03/20 12:00 04/22/20 22:33 Lioresal PO 10 mg BID ALISA Administration Bisacodyl 10 mg 03/12/20 18:00 04/12/20 09:26 Bisacodyl 10 Mg Rect Supp NE 10 mg QDAY PRN Administration Bowel Movement Docusate Sodium 100 mg 04/03/20 12:00 04/22/20 22:37 Colace FEEDTUBE Not Given BID [facility] Enoxaparin Sodium 40 mg 03/20/20 22:00 04/22/20 22:33 Enoxaparin 40 Mg/0.4 Ml Inj SUB-Q 40 mg QDAY@2200 ALISA Administration Protocol Glycopyrrolate 2 mg 04/16/20 20:00 04/23/20 08:19 Glycopyrrolate 1 Mg Tab PO 2 mg TID ALISA Administration Lansoprazole 30 mg 02/28/20 10:00 04/22/20 09:56 Prevacid Solutab FEEDTUBE 30 mg QDAY ALISA Administration Lidocaine 1 each 03/31/20 10:00 04/22/20 09:56 Lidoderm 5% TD 1 each QDAY ALISA Administration Lidocaine HCl 15 ml 04/15/20 14:00 04/23/20 08:19 Magic Mouthwash 30ml PO 15 ml TID ALISA Administration Magnesium Hydroxide 30 ml 04/12/20 19:20 04/21/20 08:52 Magnesium Hydroxide (Mom) Oral Liqd Udc PO 30 ml Q4H PRN Administration Constipation Metoprolol Tartrate 12.5 mg 02/24/20 22:00 04/22/20 22:32 Metoprolol PO 12.5 mg BID ALISA Administration Morphine Sulfate 2 mg 02/29/20 16:42 04/23/20 04:36 Morphine IV 2 mg Q4H PRN Administration Pain, Moderate (4-6) Pregabalin 150 mg 04/03/20 12:00 04/22/20 22:33 Pregabalin PO 150 mg BID ALISA Administration Scopolamine 1 each 03/03/20 14:00 04/20/20 09:32 Transderm-Scop TD 1 each Q3D ALISA Administration Senna 17.2 mg 04/03/20 22:00 04/22/20 22:32 Senokot PO 17.2 mg QHS ALISA Administration Simple Syrup 15 ml 02/26/20 11:16 Simple Syrup FEEDTUBE PRN PRN Hypoglycemia Simple Syrup 30 ml 02/26/20 11:16 Simple Syrup FEEDTUBE PRN PRN Hypoglycemia Sodium Bicarbonate 325 mg 02/26/20 11:16 Sodium Bicarbonate FEEDTUBE PRN PRN For Clogged Feeding Tube Sodium Hypochlorite 1 applic 03/31/20 13:00 04/22/20 22:34 Dakin's Half Strength TP 1 applicatio BID ALISA Administration Tamsulosin HCl 0.4 mg 03/09/20 18:00 04/22/20 09:56 Tamsulosin 0.4 Mg Cap PO 0.4 mg QDAY ALISA Administration Tramadol HCl 50 mg 04/22/20 11:35 04/22/20 13:24 Tramadol 50 Mg Tab PO 50 mg Q6H PRN Administration Pain, Moderate (4-6) Zolpidem Tartrate 10 mg 03/31/20 20:15 04/22/20 22:36 Ambien PO 10 mg QHS PRN Administration Sleep Nutrition/Malnutrition Assess - Dietary Evaluation Nutrition/Malnutrition Findings: Nutrition Notes Start: 02/26/20 10:40 Freq: Status: Active Protocol: Document 04/18/20 12:15 AB (Rec: 04/18/20 12:16 AB [id number]) Co-Sign 04/18/20 12:15 LP Nutrition Notes Initial or Follow up Brief Note Current Diagnosis Decubitus(Pressure Ulcer), Sepsis,Respiratory Failure Other Pertinent Diagnosis COVID-19 (-), ALS, pneumonia, Hip/buttock PU Current Diet Vital AF 1.2 at 75ml/hr (goal rate) Subjective/Other Information F/U for TF tolerance. Per RN, pt TF is running at goal and tolerating it. Nutrition Intervention Follow-Up By: 04/25/20 Additional Comments F/U for TF tolerance
[2020-04-23] MEDS: DOCUSATE SODIUM 100 MG/10 ML ORAL LIQD FEEDTUBE SCH ×2 (10:12→21:42)
[2020-04-23] MEDS: BACLOFEN 10 MG TAB PO SCH ×2 (10:13→21:43)
[2020-04-23] MEDS: TAMSULOSIN 0.4 MG CAP PO SCH (10:13)
[2020-04-23] MEDS: SCOPOLAMINE TRANSDERMAL PATCH 72 HR TD SCH (10:13)
[2020-04-23] MEDS: LANSOPRAZOLE 30 MG SOLUTAB FEEDTUBE SCH (10:13)
[2020-04-23] MEDS: PREGABALIN 75 MG CAP PO SCH ×2 (10:13→21:44)
[2020-04-23] MEDS: LIDOCAINE 5% 1 EACH PATCH TD SCH (10:14)
[2020-04-23] MEDS: METOPROLOL TARTRATE 25 MG TAB PO SCH ×2 (10:14→21:44)
[2020-04-23] MEDS: SODIUM HYPOCHLORITE, DAKIN'S 1/2 STRENGTH (0.25%) 473 ML TOPICAL SOLN TP SCH ×2 (10:14→21:42)
[2020-04-23] MEDS: traMADol 50 MG TAB PO PRN ×2 (10:50→21:46)
[2020-04-23] MEDS: ALPRAZolam 0.5 MG TAB PO PRN (15:24)
--- NOTE | 2020-04-23 20:36 | Progress Note ---
<STEPHANIE PALMA K - Last Filed: 04/24/20 08:43> Objective Vital Signs - 12hr 04/23/20 04/23/20 04/23/20 21:00 21:44 21:46 Temperature Pulse Rate 95 H 98 H Pulse Rate [ From Monitor] Respiratory 20 19 Rate Blood Pressure 112/75 112/75 O2 Sat by Pulse Oximetry 04/23/20 04/23/20 04/23/20 22:00 23:00 23:04 Temperature Pulse Rate 102 H 89 92 H Pulse Rate [ From Monitor] Respiratory 24 10 L 12 Rate Blood Pressure 130/81 100/68 100/68 O2 Sat by Pulse 99 100 100 Oximetry 04/24/20 04/24/20 04/24/20 00:00 00:10 01:00 Temperature 97.8 F Pulse Rate 97 H 95 H 87 Pulse Rate [ 91 H From Monitor] Respiratory 14 13 Rate Blood Pressure 98/67 98/67 98/62 O2 Sat by Pulse 100 100 100 Oximetry 04/24/20 04/24/20 04/24/20 01:32 02:00 03:00 Temperature Pulse Rate 95 H 90 Pulse Rate [ From Monitor] Respiratory 23 15 14 Rate Blood Pressure 100/69 94/66 O2 Sat by Pulse 100 100 Oximetry 04/24/20 04/24/20 04/24/20 04:00 04:32 05:00 Temperature 97.6 F Pulse Rate 87 103 H 99 H Pulse Rate [ 87 From Monitor] Respiratory 15 21 Rate Blood Pressure 99/63 99/63 113/77 O2 Sat by Pulse 100 99 100 Oximetry 04/24/20 04/24/20 04/24/20 06:00 07:00 07:48 Temperature Pulse Rate 85 92 H 87 Pulse Rate [ From Monitor] Respiratory 19 13 Rate Blood Pressure 114/77 105/76 105/76 O2 Sat by Pulse 100 98 Oximetry 04/24/20 08:00 Temperature 97.7 F Pulse Rate 94 H Pulse Rate [ 88 From Monitor] Respiratory 11 L Rate Blood Pressure 112/72 O2 Sat by Pulse 100 Oximetry CBC and BMP: 04/24/20 05:28 04/24/20 05:28 ABG, PT/INR, D-dimer: ABG ABG pH 7.371 (7.320-7.450) 03/08/20 12:34 POC ABG pCO2 63.1 mmHg (32.0-48.0) H 03/08/20 12:34 ABG pCO2 60.1 mm Hg 03/06/20 04:34 POC ABG pO2 90.5 mmHg (83-108) 03/08/20 12:34 ABG pO2 88.6 mm Hg (80.0-90.0) 03/06/20 04:34 POC ABG HCO3 35.7 03/08/20 12:34 ABG O2 Saturation 97.0 % (95.0-99.0) 03/06/20 04:34 PT/INR, D-dimer PT 15.6 Sec. (12.2-14.9) H 02/24/20 09:19 INR 1.21 (0.87-1.13) H 02/24/20 09:19 D-Dimer 1311.96 ng/mlDDU (0-234) H 02/24/20 09:19 Abnormal lab findings: Abnormal Labs 02/24/20 02/24/20 02/24/20 09:19 09:19 09:19 WBC 20.2 H RBC 5.05 H Hgb Hct MCV MCH RDW 15.3 H Plt Count Lymph % (Auto) [place] % (Auto) Lymph # (Auto) [place] # (Auto) Seg Neutrophils % Seg Neuts % (Manual) 86.0 H Lymphocytes % (Manual) 1.0 L Monocytes % (Manual) Basophils % (Manual) Seg Neutrophils # Seg Neutrophils # Man 17.4 H Lymphocytes # (Manual) 0.2 L Monocytes # (Manual) Eosinophils # (Manual) Basophils # (Manual) PT 15.6 H INR 1.21 H D-Dimer 1311.96 H ABG pH POC ABG pCO2 POC ABG pO2 ABG pO2 ABG HCO3 ABG O2 Saturation ABG Base Excess ABG Hemoglobin ABG Oxyhemoglobin ABG Potassium ABG Glucose Oxyhemoglobin Carboxyhemoglobin Sodium 135 L Potassium 3.2 L Chloride 92.2 L Carbon Dioxide BUN 6 L Creatinine < 0.2 L Glucose 124 H POC Glucose Calcium Ferritin Total Bilirubin 2.30 H Alkaline Phosphatase 132 H Lactate Dehydrogenase Total Creatine Kinase CK-MB (CK-2) Rel Index Troponin T 0.080 H C-Reactive Protein Total Protein Albumin 3.6 L Prealbumin LDL Cholesterol Direct 41 L HDL Cholesterol Arterial Blood Glucose Arterial Blood Ionized Calcium Urine WBC (Auto) 02/24/20 02/24/20 02/24/20 09:19 09:58 10:01 WBC RBC Hgb Hct MCV MCH RDW Plt Count Lymph % (Auto) [place] % (Auto) Lymph # (Auto) [place] # (Auto) Seg Neutrophils % Seg Neuts % (Manual) Lymphocytes % (Manual) Monocytes % (Manual) Basophils % (Manual) Seg Neutrophils # Seg Neutrophils # Man Lymphocytes # (Manual) Monocytes # (Manual) Eosinophils # (Manual) Basophils # (Manual) PT INR D-Dimer ABG pH 7.176 L* POC ABG pCO2 POC ABG pO2 ABG pO2 91.2 H ABG HCO3 ABG O2 Saturation ABG Base Excess -4.6 L ABG Hemoglobin ABG Oxyhemoglobin ABG Potassium ABG Glucose Oxyhemoglobin 92.6 L Carboxyhemoglobin Sodium Potassium Chloride Carbon Dioxide BUN Creatinine Glucose POC Glucose Calcium Ferritin 1715.0 H Total Bilirubin Alkaline Phosphatase Lactate Dehydrogenase 303 H Total Creatine Kinase CK-MB (CK-2) Rel Index Troponin T C-Reactive Protein 26.10 H Total Protein Albumin Prealbumin LDL Cholesterol Direct HDL Cholesterol Arterial Blood Glucose Arterial Blood Ionized Calcium Urine WBC (Auto) 02/24/20 02/24/20 02/24/20 11:52 13:45 19:35 WBC RBC Hgb Hct MCV MCH RDW Plt Count Lymph % (Auto) [place] % (Auto) Lymph # (Auto) [place] # (Auto) Seg Neutrophils % Seg Neuts % (Manual) Lymphocytes % (Manual) Monocytes % (Manual) Basophils % (Manual) Seg Neutrophils # Seg Neutrophils # Man Lymphocytes # (Manual) Monocytes # (Manual) Eosinophils # (Manual) Basophils # (Manual) PT INR D-Dimer ABG pH 7.051 L* 7.300 L POC ABG pCO2 POC ABG pO2 ABG pO2 94.7 H 75.1 L ABG HCO3 18.0 L ABG O2 Saturation 93.5 L ABG Base Excess -6.8 L -7.8 L ABG Hemoglobin 13.2 L 11.9 L ABG Oxyhemoglobin ABG Potassium ABG Glucose Oxyhemoglobin 91.0 L 92.7 L Carboxyhemoglobin Sodium Potassium Chloride Carbon Dioxide BUN Creatinine Glucose POC Glucose Calcium Ferritin Total Bilirubin Alkaline Phosphatase Lactate Dehydrogenase Total Creatine Kinase CK-MB (CK-2) Rel Index Troponin T 0.034 H D C-Reactive Protein Total Protein Albumin Prealbumin LDL Cholesterol Direct HDL Cholesterol Arterial Blood Glucose Arterial Blood Ionized Calcium Urine WBC (Auto) 02/25/20 02/25/20 02/25/20 04:00 04:00 12:26 WBC 22.9 H RBC Hgb Hct MCV 83 L MCH 27 L RDW Plt Count 468 H Lymph % (Auto) [place] % (Auto) Lymph # (Auto) [place] # (Auto) Seg Neutrophils % Seg Neuts % (Manual) 89.0 H Lymphocytes % (Manual) 7.0 L Monocytes % (Manual) Basophils % (Manual) Seg Neutrophils # Seg Neutrophils # Man 20.4 H Lymphocytes # (Manual) Monocytes # (Manual) Eosinophils # (Manual) Basophils # (Manual) PT INR D-Dimer ABG pH POC ABG pCO2 POC ABG pO2 ABG pO2 ABG HCO3 ABG O2 Saturation ABG Base Excess ABG Hemoglobin ABG Oxyhemoglobin ABG Potassium 2.6 L ABG Glucose 142 H Oxyhemoglobin Carboxyhemoglobin Sodium Potassium 3.2 L Chloride Carbon Dioxide 18 L BUN Creatinine 0.2 L Glucose 114 H POC Glucose Calcium Ferritin Total Bilirubin Alkaline Phosphatase Lactate Dehydrogenase Total Creatine Kinase CK-MB (CK-2) Rel Index Troponin T C-Reactive Protein Total Protein Albumin 3.5 L Prealbumin LDL Cholesterol Direct HDL Cholesterol Arterial Blood Glucose 142 H Arterial Blood Ionized Calcium Urine WBC (Auto) 02/26/20 02/26/20 02/26/20 15:58 17:00 23:43 WBC RBC Hgb Hct MCV MCH RDW Plt Count Lymph % (Auto) [place] % (Auto) Lymph # (Auto) [place] # (Auto) Seg Neutrophils % Seg Neuts % (Manual) Lymphocytes % (Manual) Monocytes % (Manual) Basophils % (Manual) Seg Neutrophils # Seg Neutrophils # Man Lymphocytes # (Manual) Monocytes # (Manual) Eosinophils # (Manual) Basophils # (Manual) PT INR D-Dimer ABG pH 7.502 H POC ABG pCO2 POC ABG pO2 213.6 H ABG pO2 ABG HCO3 ABG O2 Saturation ABG Base Excess ABG Hemoglobin ABG Oxyhemoglobin 99.2 H ABG Potassium 2.9 L ABG Glucose 160 H Oxyhemoglobin Carboxyhemoglobin 0.4 L Sodium Potassium Chloride Carbon Dioxide BUN Creatinine Glucose POC Glucose 189 H 120 H Calcium Ferritin Total Bilirubin Alkaline Phosphatase Lactate Dehydrogenase Total Creatine Kinase CK-MB (CK-2) Rel Index Troponin T C-Reactive Protein Total Protein Albumin Prealbumin LDL Cholesterol Direct HDL Cholesterol Arterial Blood Glucose 160 H Arterial Blood Ionized Calcium 4.5 L Urine WBC (Auto) 02/27/20 02/27/20 02/27/20 05:00 07:04 17:45 WBC RBC Hgb Hct MCV MCH RDW Plt Count Lymph % (Auto) [place] % (Auto) Lymph # (Auto) [place] # (Auto) Seg Neutrophils % Seg Neuts % (Manual) Lymphocytes % (Manual) Monocytes % (Manual) Basophils % (Manual) Seg Neutrophils # Seg Neutrophils # Man Lymphocytes # (Manual) Monocytes # (Manual) Eosinophils # (Manual) Basophils # (Manual) PT INR D-Dimer ABG pH 7.524 H POC ABG pCO2 POC ABG pO2 ABG pO2 ABG HCO3 ABG O2 Saturation ABG Base Excess ABG Hemoglobin ABG Oxyhemoglobin ABG Potassium 3.0 L ABG Glucose 143 H Oxyhemoglobin Carboxyhemoglobin Sodium Potassium Chloride Carbon Dioxide BUN Creatinine Glucose POC Glucose 154 H 175 H Calcium Ferritin Total Bilirubin Alkaline Phosphatase Lactate Dehydrogenase Total Creatine Kinase CK-MB (CK-2) Rel Index Troponin T C-Reactive Protein Total Protein Albumin Prealbumin LDL Cholesterol Direct HDL Cholesterol Arterial Blood Glucose 143 H Arterial Blood Ionized Calcium Urine WBC (Auto) 02/27/20 02/28/20 02/28/20 Unknown 00:21 04:15 WBC 18.7 H RBC Hgb Hct MCV MCH RDW Plt Count Lymph % (Auto) 8.7 L [place] % (Auto) Lymph # (Auto) [place] # (Auto) 1.2 H Seg Neutrophils % 84.6 H Seg Neuts % (Manual) Lymphocytes % (Manual) Monocytes % (Manual) Basophils % (Manual) Seg Neutrophils # 15.9 H Seg Neutrophils # Man Lymphocytes # (Manual) Monocytes # (Manual) Eosinophils # (Manual) Basophils # (Manual) PT INR D-Dimer ABG pH POC ABG pCO2 POC ABG pO2 ABG pO2 ABG HCO3 ABG O2 Saturation ABG Base Excess ABG Hemoglobin ABG Oxyhemoglobin ABG Potassium ABG Glucose Oxyhemoglobin Carboxyhemoglobin Sodium Potassium 2.9 L* Chloride Carbon Dioxide 33 H D BUN Creatinine < 0.2 L Glucose 157 H POC Glucose 134 H Calcium Ferritin Total Bilirubin Alkaline Phosphatase Lactate Dehydrogenase Total Creatine Kinase CK-MB (CK-2) Rel Index Troponin T C-Reactive Protein Total Protein Albumin Prealbumin LDL Cholesterol Direct HDL Cholesterol Arterial Blood Glucose Arterial Blood Ionized Calcium Urine WBC (Auto) 02/28/20 02/28/20 02/28/20 04:15 05:16 05:39 WBC RBC Hgb Hct MCV MCH RDW Plt Count Lymph % (Auto) [place] % (Auto) Lymph # (Auto) [place] # (Auto) Seg Neutrophils % Seg Neuts % (Manual) Lymphocytes % (Manual) Monocytes % (Manual) Basophils % (Manual) Seg Neutrophils # Seg Neutrophils # Man Lymphocytes # (Manual) Monocytes # (Manual) Eosinophils # (Manual) Basophils # (Manual) PT INR D-Dimer ABG pH POC ABG pCO2 POC ABG pO2 ABG pO2 142.9 H ABG HCO3 34.1 H ABG O2 Saturation ABG Base Excess 8.3 H ABG Hemoglobin ABG Oxyhemoglobin ABG Potassium ABG Glucose Oxyhemoglobin Carboxyhemoglobin Sodium 151 H Potassium Chloride Carbon Dioxide 32 H BUN Creatinine 0.2 L Glucose 167 H POC Glucose 138 H Calcium Ferritin Total Bilirubin Alkaline Phosphatase Lactate Dehydrogenase Total Creatine Kinase CK-MB (CK-2) Rel Index Troponin T C-Reactive Protein Total Protein Albumin Prealbumin LDL Cholesterol Direct HDL Cholesterol Arterial Blood Glucose Arterial Blood Ionized Calcium Urine WBC (Auto) 02/28/20 02/28/20 02/28/20 11:05 11:33 12:54 WBC RBC Hgb Hct MCV MCH RDW Plt Count Lymph % (Auto) [place] % (Auto) Lymph # (Auto) [place] # (Auto) Seg Neutrophils % Seg Neuts % (Manual) Lymphocytes % (Manual) Monocytes % (Manual) Basophils % (Manual) Seg Neutrophils # Seg Neutrophils # Man Lymphocytes # (Manual) Monocytes # (Manual) Eosinophils # (Manual) Basophils # (Manual) PT INR D-Dimer ABG pH POC ABG pCO2 POC ABG pO2 ABG pO2 ABG HCO3 ABG O2 Saturation ABG Base Excess ABG Hemoglobin ABG Oxyhemoglobin ABG Potassium ABG Glucose Oxyhemoglobin Carboxyhemoglobin Sodium Potassium Chloride Carbon Dioxide BUN Creatinine Glucose POC Glucose 160 H Calcium Ferritin Total Bilirubin Alkaline Phosphatase Lactate Dehydrogenase Total Creatine Kinase CK-MB (CK-2) Rel Index Troponin T C-Reactive Protein 4.70 H Total Protein Albumin Prealbumin 0.090 L LDL Cholesterol Direct HDL Cholesterol Arterial Blood Glucose Arterial Blood Ionized Calcium Urine WBC (Auto) 02/28/20 02/29/20 02/29/20 17:34 00:44 04:05 WBC 19.6 H RBC Hgb Hct MCV MCH 27 L RDW 15.4 H Plt Count Lymph % (Auto) [place] % (Auto) Lymph # (Auto) [place] # (Auto) Seg Neutrophils % Seg Neuts % (Manual) 86.0 H Lymphocytes % (Manual) 7.0 L Monocytes % (Manual) Basophils % (Manual) Seg Neutrophils # Seg Neutrophils # Man 16.9 H Lymphocytes # (Manual) Monocytes # (Manual) 1.2 H Eosinophils # (Manual) Basophils # (Manual) PT INR D-Dimer ABG pH POC ABG pCO2 POC ABG pO2 ABG pO2 ABG HCO3 ABG O2 Saturation ABG Base Excess ABG Hemoglobin ABG Oxyhemoglobin ABG Potassium ABG Glucose Oxyhemoglobin Carboxyhemoglobin Sodium Potassium Chloride Carbon Dioxide BUN Creatinine Glucose POC Glucose 136 H 156 H Calcium Ferritin Total Bilirubin Alkaline Phosphatase Lactate Dehydrogenase Total Creatine Kinase CK-MB (CK-2) Rel Index Troponin T C-Reactive Protein Total Protein Albumin Prealbumin LDL Cholesterol Direct HDL Cholesterol Arterial Blood Glucose Arterial Blood Ionized Calcium Urine WBC (Auto) 02/29/20 02/29/20 02/29/20 04:05 05:14 05:33 WBC RBC Hgb Hct MCV MCH RDW Plt Count Lymph % (Auto) [place] % (Auto) Lymph # (Auto) [place] # (Auto) Seg Neutrophils % Seg Neuts % (Manual) Lymphocytes % (Manual) Monocytes % (Manual) Basophils % (Manual) Seg Neutrophils # Seg Neutrophils # Man Lymphocytes # (Manual) Monocytes # (Manual) Eosinophils # (Manual) Basophils # (Manual) PT INR D-Dimer ABG pH POC ABG pCO2 54.3 H POC ABG pO2 124.8 H ABG pO2 ABG HCO3 ABG O2 Saturation ABG Base Excess ABG Hemoglobin ABG Oxyhemoglobin ABG Potassium ABG Glucose 185 H Oxyhemoglobin Carboxyhemoglobin Sodium 148 H Potassium Chloride Carbon Dioxide 33 H BUN Creatinine < 0.2 L Glucose 173 H POC Glucose 152 H Calcium Ferritin Total Bilirubin Alkaline Phosphatase Lactate Dehydrogenase Total Creatine Kinase CK-MB (CK-2) Rel Index Troponin T C-Reactive Protein Total Protein Albumin Prealbumin LDL Cholesterol Direct HDL Cholesterol Arterial Blood Glucose 185 H Arterial Blood Ionized Calcium Urine WBC (Auto) 03/01/20 03/01/20 03/01/20 00:00 03:45 04:33 WBC 23.1 H RBC Hgb Hct MCV MCH 27 L RDW 15.3 H Plt Count Lymph % (Auto) [place] % (Auto) Lymph # (Auto) [place] # (Auto) Seg Neutrophils % Seg Neuts % (Manual) 92.0 H Lymphocytes % (Manual) 6.0 L Monocytes % (Manual) Basophils % (Manual) Seg Neutrophils # Seg Neutrophils # Man 21.3 H Lymphocytes # (Manual) Monocytes # (Manual) Eosinophils # (Manual) 0.5 H Basophils # (Manual) PT INR D-Dimer ABG pH 7.492 H POC ABG pCO2 POC ABG pO2 ABG pO2 157.1 H ABG HCO3 32.3 H ABG O2 Saturation ABG Base Excess 8.1 H ABG Hemoglobin 13.2 L ABG Oxyhemoglobin ABG Potassium ABG Glucose Oxyhemoglobin Carboxyhemoglobin Sodium Potassium Chloride Carbon Dioxide BUN Creatinine Glucose POC Glucose 109 H Calcium Ferritin Total Bilirubin Alkaline Phosphatase Lactate Dehydrogenase Total Creatine Kinase CK-MB (CK-2) Rel Index Troponin T C-Reactive Protein Total Protein Albumin Prealbumin LDL Cholesterol Direct HDL Cholesterol Arterial Blood Glucose Arterial Blood Ionized Calcium Urine WBC (Auto) 03/01/20 03/01/20 03/01/20 04:33 05:29 12:32 WBC RBC Hgb Hct MCV MCH RDW Plt Count Lymph % (Auto) [place] % (Auto) Lymph # (Auto) [place] # (Auto) Seg Neutrophils % Seg Neuts % (Manual) Lymphocytes % (Manual) Monocytes % (Manual) Basophils % (Manual) Seg Neutrophils # Seg Neutrophils # Man Lymphocytes # (Manual) Monocytes # (Manual) Eosinophils # (Manual) Basophils # (Manual) PT INR D-Dimer ABG pH POC ABG pCO2 POC ABG pO2 ABG pO2 ABG HCO3 ABG O2 Saturation ABG Base Excess ABG Hemoglobin ABG Oxyhemoglobin ABG Potassium ABG Glucose Oxyhemoglobin Carboxyhemoglobin Sodium 146 H Potassium Chloride Carbon Dioxide 32 H BUN Creatinine < 0.2 L Glucose 120 H POC Glucose 120 H 128 H Calcium Ferritin Total Bilirubin Alkaline Phosphatase Lactate Dehydrogenase Total Creatine Kinase CK-MB (CK-2) Rel Index Troponin T C-Reactive Protein Total Protein Albumin Prealbumin LDL Cholesterol Direct HDL Cholesterol Arterial Blood Glucose Arterial Blood Ionized Calcium Urine WBC (Auto) 03/01/20 03/01/20 03/02/20 17:38 23:46 06:13 WBC RBC Hgb Hct MCV MCH RDW Plt Count Lymph % (Auto) [place] % (Auto) Lymph # (Auto) [place] # (Auto) Seg Neutrophils % Seg Neuts % (Manual) Lymphocytes % (Manual) Monocytes % (Manual) Basophils % (Manual) Seg Neutrophils # Seg Neutrophils # Man Lymphocytes # (Manual) Monocytes # (Manual) Eosinophils # (Manual) Basophils # (Manual) PT INR D-Dimer ABG pH POC ABG pCO2 POC ABG pO2 ABG pO2 ABG HCO3 ABG O2 Saturation ABG Base Excess ABG Hemoglobin ABG Oxyhemoglobin ABG Potassium ABG Glucose Oxyhemoglobin Carboxyhemoglobin Sodium Potassium Chloride Carbon Dioxide BUN Creatinine Glucose POC Glucose 114 H 121 H 120 H Calcium Ferritin Total Bilirubin Alkaline Phosphatase Lactate Dehydrogenase Total Creatine Kinase CK-MB (CK-2) Rel Index Troponin T C-Reactive Protein Total Protein Albumin Prealbumin LDL Cholesterol Direct HDL Cholesterol Arterial Blood Glucose Arterial Blood Ionized Calcium Urine WBC (Auto) 03/02/20 03/02/20 03/03/20 09:47 09:47 10:21 WBC 23.6 H RBC Hgb Hct MCV MCH RDW 15.3 H Plt Count 494 H Lymph % (Auto) [place] % (Auto) Lymph # (Auto) [place] # (Auto) Seg Neutrophils % Seg Neuts % (Manual) 85.0 H Lymphocytes % (Manual) 6.0 L Monocytes % (Manual) Basophils % (Manual) Seg Neutrophils # Seg Neutrophils # Man 20.1 H Lymphocytes # (Manual) Monocytes # (Manual) 1.7 H Eosinophils # (Manual) Basophils # (Manual) PT INR D-Dimer ABG pH POC ABG pCO2 POC ABG pO2 ABG pO2 ABG HCO3 ABG O2 Saturation ABG Base Excess ABG Hemoglobin ABG Oxyhemoglobin ABG Potassium 3.3 L ABG Glucose 158 H Oxyhemoglobin Carboxyhemoglobin Sodium Potassium Chloride Carbon Dioxide BUN Creatinine < 0.2 L Glucose 177 H POC Glucose Calcium Ferritin Total Bilirubin Alkaline Phosphatase Lactate Dehydrogenase Total Creatine Kinase CK-MB (CK-2) Rel Index Troponin T C-Reactive Protein Total Protein Albumin Prealbumin LDL Cholesterol Direct HDL Cholesterol Arterial Blood Glucose 158 H Arterial Blood Ionized Calcium Urine WBC (Auto) 03/03/20 03/04/20 03/04/20 21:30 00:00 12:23 WBC RBC Hgb Hct MCV MCH RDW Plt Count Lymph % (Auto) [place] % (Auto) Lymph # (Auto) [place] # (Auto) Seg Neutrophils % Seg Neuts % (Manual) Lymphocytes % (Manual) Monocytes % (Manual) Basophils % (Manual) Seg Neutrophils # Seg Neutrophils # Man Lymphocytes # (Manual) Monocytes # (Manual) Eosinophils # (Manual) Basophils # (Manual) PT INR D-Dimer ABG pH 7.328 L POC ABG pCO2 POC ABG pO2 ABG pO2 68.4 L ABG HCO3 35.0 H ABG O2 Saturation 93.9 L ABG Base Excess 6.8 H ABG Hemoglobin 12.7 L ABG Oxyhemoglobin ABG Potassium ABG Glucose Oxyhemoglobin 91.9 L Carboxyhemoglobin Sodium Potassium Chloride Carbon Dioxide BUN Creatinine Glucose POC Glucose 187 H 163 H Calcium Ferritin Total Bilirubin Alkaline Phosphatase Lactate Dehydrogenase Total Creatine Kinase CK-MB (CK-2) Rel Index Troponin T C-Reactive Protein Total Protein Albumin Prealbumin LDL Cholesterol Direct HDL Cholesterol Arterial Blood Glucose Arterial Blood Ionized Calcium Urine WBC (Auto) 03/04/20 03/04/20 03/05/20 18:15 21:30 06:02 WBC RBC Hgb Hct MCV MCH RDW Plt Count Lymph % (Auto) [place] % (Auto) Lymph # (Auto) [place] # (Auto) Seg Neutrophils % Seg Neuts % (Manual) Lymphocytes % (Manual) Monocytes % (Manual) Basophils % (Manual) Seg Neutrophils # Seg Neutrophils # Man Lymphocytes # (Manual) Monocytes # (Manual) Eosinophils # (Manual) Basophils # (Manual) PT INR D-Dimer ABG pH 7.297 L POC ABG pCO2 POC ABG pO2 ABG pO2 ABG HCO3 41.0 H ABG O2 Saturation ABG Base Excess 11.0 H ABG Hemoglobin 13.1 L ABG Oxyhemoglobin ABG Potassium ABG Glucose Oxyhemoglobin 94.5 L Carboxyhemoglobin Sodium Potassium Chloride Carbon Dioxide BUN Creatinine Glucose POC Glucose 192 H 127 H Calcium Ferritin Total Bilirubin Alkaline Phosphatase Lactate Dehydrogenase Total Creatine Kinase CK-MB (CK-2) Rel Index Troponin T C-Reactive Protein Total Protein Albumin Prealbumin LDL Cholesterol Direct HDL Cholesterol Arterial Blood Glucose Arterial Blood Ionized Calcium Urine WBC (Auto) 03/05/20 03/05/20 03/06/20 12:09 16:42 00:24 WBC RBC Hgb Hct MCV MCH RDW Plt Count Lymph % (Auto) [place] % (Auto) Lymph # (Auto) [place] # (Auto) Seg Neutrophils % Seg Neuts % (Manual) Lymphocytes % (Manual) Monocytes % (Manual) Basophils % (Manual) Seg Neutrophils # Seg Neutrophils # Man Lymphocytes # (Manual) Monocytes # (Manual) Eosinophils # (Manual) Basophils # (Manual) PT INR D-Dimer ABG pH POC ABG pCO2 POC ABG pO2 ABG pO2 ABG HCO3 ABG O2 Saturation ABG Base Excess ABG Hemoglobin ABG Oxyhemoglobin ABG Potassium ABG Glucose Oxyhemoglobin Carboxyhemoglobin Sodium Potassium Chloride Carbon Dioxide BUN Creatinine Glucose POC Glucose 147 H 114 H 134 H Calcium Ferritin Total Bilirubin Alkaline Phosphatase Lactate Dehydrogenase Total Creatine Kinase CK-MB (CK-2) Rel Index Troponin T C-Reactive Protein Total Protein Albumin Prealbumin LDL Cholesterol Direct HDL Cholesterol Arterial Blood Glucose Arterial Blood Ionized Calcium Urine WBC (Auto) 03/06/20 03/06/20 03/06/20 04:34 05:53 06:08 WBC 25.4 H RBC Hgb 10.5 L Hct 32.7 L MCV MCH 27 L RDW 15.3 H Plt Count 634 H Lymph % (Auto) [place] % (Auto) Lymph # (Auto) [place] # (Auto) Seg Neutrophils % Seg Neuts % (Manual) 88.0 H Lymphocytes % (Manual) 2.0 L Monocytes % (Manual) 8.0 H Basophils % (Manual) Seg Neutrophils # Seg Neutrophils # Man 22.4 H Lymphocytes # (Manual) 0.5 L Monocytes # (Manual) 2.0 H Eosinophils # (Manual) Basophils # (Manual) PT INR D-Dimer ABG pH POC ABG pCO2 POC ABG pO2 ABG pO2 ABG HCO3 37.9 H ABG O2 Saturation ABG Base Excess 11.4 H ABG Hemoglobin 10.6 L ABG Oxyhemoglobin ABG Potassium ABG Glucose Oxyhemoglobin 94.7 L Carboxyhemoglobin Sodium Potassium Chloride Carbon Dioxide BUN Creatinine Glucose POC Glucose 135 H Calcium Ferritin Total Bilirubin Alkaline Phosphatase Lactate Dehydrogenase Total Creatine Kinase CK-MB (CK-2) Rel Index Troponin T C-Reactive Protein Total Protein Albumin Prealbumin LDL Cholesterol Direct HDL Cholesterol Arterial Blood Glucose Arterial Blood Ionized Calcium Urine WBC (Auto) 03/06/20 03/06/20 03/06/20 06:08 12:19 19:10 WBC RBC Hgb Hct MCV MCH RDW Plt Count Lymph % (Auto) [place] % (Auto) Lymph # (Auto) [place] # (Auto) Seg Neutrophils % Seg Neuts % (Manual) Lymphocytes % (Manual) Monocytes % (Manual) Basophils % (Manual) Seg Neutrophils # Seg Neutrophils # Man Lymphocytes # (Manual) Monocytes # (Manual) Eosinophils # (Manual) Basophils # (Manual) PT INR D-Dimer ABG pH POC ABG pCO2 POC ABG pO2 ABG pO2 ABG HCO3 ABG O2 Saturation ABG Base Excess ABG Hemoglobin ABG Oxyhemoglobin ABG Potassium ABG Glucose Oxyhemoglobin Carboxyhemoglobin Sodium 150 H D Potassium Chloride Carbon Dioxide 39 H D BUN 23 H Creatinine < 0.2 L Glucose 144 H POC Glucose 169 H 152 H Calcium Ferritin Total Bilirubin Alkaline Phosphatase Lactate Dehydrogenase Total Creatine Kinase CK-MB (CK-2) Rel Index Troponin T C-Reactive Protein Total Protein Albumin 3.3 L Prealbumin LDL Cholesterol Direct HDL Cholesterol Arterial Blood Glucose Arterial Blood Ionized Calcium Urine WBC (Auto) 03/06/20 03/07/20 03/07/20 23:58 04:25 04:25 WBC 22.1 H RBC Hgb 10.9 L Hct 32.9 L MCV MCH RDW 15.5 H Plt Count 739 H Lymph % (Auto) 7.8 L [place] % (Auto) Lymph # (Auto) [place] # (Auto) 1.3 H Seg Neutrophils % 85.5 H Seg Neuts % (Manual) Lymphocytes % (Manual) Monocytes % (Manual) Basophils % (Manual) Seg Neutrophils # 18.9 H Seg Neutrophils # Man Lymphocytes # (Manual) Monocytes # (Manual) Eosinophils # (Manual) Basophils # (Manual) PT INR D-Dimer ABG pH POC ABG pCO2 POC ABG pO2 ABG pO2 ABG HCO3 ABG O2 Saturation ABG Base Excess ABG Hemoglobin ABG Oxyhemoglobin ABG Potassium ABG Glucose Oxyhemoglobin Carboxyhemoglobin Sodium 146 H Potassium Chloride Carbon Dioxide 37 H BUN Creatinine < 0.2 L Glucose 118 H POC Glucose 111 H Calcium Ferritin Total Bilirubin Alkaline Phosphatase Lactate Dehydrogenase Total Creatine Kinase CK-MB (CK-2) Rel Index Troponin T C-Reactive Protein Total Protein Albumin 3.7 L Prealbumin LDL Cholesterol Direct HDL Cholesterol Arterial Blood Glucose Arterial Blood Ionized Calcium Urine WBC (Auto) 03/07/20 03/07/20 03/07/20 05:20 17:45 23:32 WBC RBC Hgb Hct MCV MCH RDW Plt Count Lymph % (Auto) [place] % (Auto) Lymph # (Auto) [place] # (Auto) Seg Neutrophils % Seg Neuts % (Manual) Lymphocytes % (Manual) Monocytes % (Manual) Basophils % (Manual) Seg Neutrophils # Seg Neutrophils # Man Lymphocytes # (Manual) Monocytes # (Manual) Eosinophils # (Manual) Basophils # (Manual) PT INR D-Dimer ABG pH POC ABG pCO2 POC ABG pO2 ABG pO2 ABG HCO3 ABG O2 Saturation ABG Base Excess ABG Hemoglobin ABG Oxyhemoglobin ABG Potassium ABG Glucose Oxyhemoglobin Carboxyhemoglobin Sodium Potassium Chloride Carbon Dioxide BUN Creatinine Glucose POC Glucose 113 H 124 H 210 H Calcium Ferritin Total Bilirubin Alkaline Phosphatase Lactate Dehydrogenase Total Creatine Kinase CK-MB (CK-2) Rel Index Troponin T C-Reactive Protein Total Protein Albumin Prealbumin LDL Cholesterol Direct HDL Cholesterol Arterial Blood Glucose Arterial Blood Ionized Calcium Urine WBC (Auto) 03/08/20 03/08/20 03/08/20 05:35 06:43 06:43 WBC 28.9 H RBC 3.53 L Hgb 9.7 L Hct 30.3 L MCV MCH RDW 15.6 H Plt Count 578 H Lymph % (Auto) [place] % (Auto) Lymph # (Auto) [place] # (Auto) Seg Neutrophils % Seg Neuts % (Manual) 93.0 H Lymphocytes % (Manual) 4.0 L Monocytes % (Manual) Basophils % (Manual) Seg Neutrophils # Seg Neutrophils # Man 26.9 H Lymphocytes # (Manual) Monocytes # (Manual) Eosinophils # (Manual) Basophils # (Manual) PT INR D-Dimer ABG pH POC ABG pCO2 POC ABG pO2 ABG pO2 ABG HCO3 ABG O2 Saturation ABG Base Excess ABG Hemoglobin ABG Oxyhemoglobin ABG Potassium ABG Glucose Oxyhemoglobin Carboxyhemoglobin Sodium 146 H Potassium Chloride Carbon Dioxide 35 H BUN 34 H Creatinine 0.3 L D Glucose 125 H POC Glucose 147 H Calcium Ferritin Total Bilirubin Alkaline Phosphatase Lactate Dehydrogenase Total Creatine Kinase CK-MB (CK-2) Rel Index Troponin T C-Reactive Protein Total Protein 5.9 L Albumin 3.2 L Prealbumin LDL Cholesterol Direct HDL Cholesterol Arterial Blood Glucose Arterial Blood Ionized Calcium Urine WBC (Auto) 03/08/20 03/08/20 03/08/20 08:57 11:14 12:34 WBC RBC Hgb Hct MCV MCH RDW Plt Count Lymph % (Auto) [place] % (Auto) Lymph # (Auto) [place] # (Auto) Seg Neutrophils % Seg Neuts % (Manual) Lymphocytes % (Manual) Monocytes % (Manual) Basophils % (Manual) Seg Neutrophils # Seg Neutrophils # Man Lymphocytes # (Manual) Monocytes # (Manual) Eosinophils # (Manual) Basophils # (Manual) PT INR D-Dimer ABG pH POC ABG pCO2 63.1 H POC ABG pO2 ABG pO2 ABG HCO3 ABG O2 Saturation ABG Base Excess ABG Hemoglobin 10.9 L ABG Oxyhemoglobin ABG Potassium ABG Glucose 176 H Oxyhemoglobin Carboxyhemoglobin Sodium Potassium Chloride Carbon Dioxide BUN Creatinine Glucose POC Glucose 171 H Calcium Ferritin Total Bilirubin Alkaline Phosphatase Lactate Dehydrogenase Total Creatine Kinase CK-MB (CK-2) Rel Index Troponin T C-Reactive Protein Total Protein Albumin Prealbumin LDL Cholesterol Direct HDL Cholesterol Arterial Blood Glucose 176 H Arterial Blood Ionized Calcium 4.5 L Urine WBC (Auto) 10.0 H 03/08/20 03/08/20 03/09/20 18:02 23:43 05:49 WBC RBC Hgb Hct MCV MCH RDW Plt Count Lymph % (Auto) [place] % (Auto) Lymph # (Auto) [place] # (Auto) Seg Neutrophils % Seg Neuts % (Manual) Lymphocytes % (Manual) Monocytes % (Manual) Basophils % (Manual) Seg Neutrophils # Seg Neutrophils # Man Lymphocytes # (Manual) Monocytes # (Manual) Eosinophils # (Manual) Basophils # (Manual) PT INR D-Dimer ABG pH POC ABG pCO2 POC ABG pO2 ABG pO2 ABG HCO3 ABG O2 Saturation ABG Base Excess ABG Hemoglobin ABG Oxyhemoglobin ABG Potassium ABG Glucose Oxyhemoglobin Carboxyhemoglobin Sodium Potassium Chloride Carbon Dioxide BUN Creatinine Glucose POC Glucose 157 H 134 H 163 H Calcium Ferritin Total Bilirubin Alkaline Phosphatase Lactate Dehydrogenase Total Creatine Kinase CK-MB (CK-2) Rel Index Troponin T C-Reactive Protein Total Protein Albumin Prealbumin LDL Cholesterol Direct HDL Cholesterol Arterial Blood Glucose Arterial Blood Ionized Calcium Urine WBC (Auto) 03/09/20 03/09/20 03/09/20 08:35 08:35 12:11 WBC 23.4 H RBC 3.36 L Hgb 9.3 L Hct 28.8 L MCV MCH RDW 15.9 H Plt Count 521 H Lymph % (Auto) [place] % (Auto) Lymph # (Auto) [place] # (Auto) Seg Neutrophils % Seg Neuts % (Manual) 87.0 H Lymphocytes % (Manual) 4.0 L Monocytes % (Manual) 9.0 H Basophils % (Manual) Seg Neutrophils # Seg Neutrophils # Man 20.4 H Lymphocytes # (Manual) 0.9 L Monocytes # (Manual) 2.1 H Eosinophils # (Manual) Basophils # (Manual) PT INR D-Dimer ABG pH POC ABG pCO2 POC ABG pO2 ABG pO2 ABG HCO3 ABG O2 Saturation ABG Base Excess ABG Hemoglobin ABG Oxyhemoglobin ABG Potassium ABG Glucose Oxyhemoglobin Carboxyhemoglobin Sodium 147 H Potassium Chloride Carbon Dioxide 37 H BUN 63 H Creatinine Glucose 154 H POC Glucose 128 H Calcium Ferritin Total Bilirubin Alkaline Phosphatase Lactate Dehydrogenase Total Creatine Kinase CK-MB (CK-2) Rel Index Troponin T C-Reactive Protein Total Protein Albumin Prealbumin LDL Cholesterol Direct HDL Cholesterol Arterial Blood Glucose Arterial Blood Ionized Calcium Urine WBC (Auto) 03/09/20 03/10/20 03/10/20 17:51 00:25 05:41 WBC RBC Hgb Hct MCV MCH RDW Plt Count Lymph % (Auto) [place] % (Auto) Lymph # (Auto) [place] # (Auto) Seg Neutrophils % Seg Neuts % (Manual) Lymphocytes % (Manual) Monocytes % (Manual) Basophils % (Manual) Seg Neutrophils # Seg Neutrophils # Man Lymphocytes # (Manual) Monocytes # (Manual) Eosinophils # (Manual) Basophils # (Manual) PT INR D-Dimer ABG pH POC ABG pCO2 POC ABG pO2 ABG pO2 ABG HCO3 ABG O2 Saturation ABG Base Excess ABG Hemoglobin ABG Oxyhemoglobin ABG Potassium ABG Glucose Oxyhemoglobin Carboxyhemoglobin Sodium Potassium Chloride Carbon Dioxide BUN Creatinine Glucose POC Glucose 127 H 128 H 153 H Calcium Ferritin Total Bilirubin Alkaline Phosphatase Lactate Dehydrogenase Total Creatine Kinase CK-MB (CK-2) Rel Index Troponin T C-Reactive Protein Total Protein Albumin Prealbumin LDL Cholesterol Direct HDL Cholesterol Arterial Blood Glucose Arterial Blood Ionized Calcium Urine WBC (Auto) 03/10/20 03/10/20 03/10/20 06:14 06:14 12:02 WBC 18.3 H RBC 3.45 L Hgb 9.5 L Hct 29.5 L MCV MCH RDW 16.1 H Plt Count 494 H Lymph % (Auto) [place] % (Auto) Lymph # (Auto) [place] # (Auto) Seg Neutrophils % Seg Neuts % (Manual) 95.0 H Lymphocytes % (Manual) 1.0 L Monocytes % (Manual) Basophils % (Manual) Seg Neutrophils # Seg Neutrophils # Man 17.4 H Lymphocytes # (Manual) 0.2 L Monocytes # (Manual) Eosinophils # (Manual) Basophils # (Manual) PT INR D-Dimer ABG pH POC ABG pCO2 POC ABG pO2 ABG pO2 ABG HCO3 ABG O2 Saturation ABG Base Excess ABG Hemoglobin ABG Oxyhemoglobin ABG Potassium ABG Glucose Oxyhemoglobin Carboxyhemoglobin Sodium 149 H Potassium Chloride Carbon Dioxide 35 H BUN 34 H Creatinine 0.2 L D Glucose 177 H POC Glucose 151 H Calcium Ferritin Total Bilirubin Alkaline Phosphatase Lactate Dehydrogenase Total Creatine Kinase CK-MB (CK-2) Rel Index Troponin T C-Reactive Protein Total Protein Albumin Prealbumin LDL Cholesterol Direct HDL Cholesterol Arterial Blood Glucose Arterial Blood Ionized Calcium Urine WBC (Auto) 03/10/20 03/10/20 03/11/20 17:41 23:53 05:02 WBC RBC Hgb Hct MCV MCH RDW Plt Count Lymph % (Auto) [place] % (Auto) Lymph # (Auto) [place] # (Auto) Seg Neutrophils % Seg Neuts % (Manual) Lymphocytes % (Manual) Monocytes % (Manual) Basophils % (Manual) Seg Neutrophils # Seg Neutrophils # Man Lymphocytes # (Manual) Monocytes # (Manual) Eosinophils # (Manual) Basophils # (Manual) PT INR D-Dimer ABG pH POC ABG pCO2 POC ABG pO2 ABG pO2 ABG HCO3 ABG O2 Saturation ABG Base Excess ABG Hemoglobin ABG Oxyhemoglobin ABG Potassium ABG Glucose Oxyhemoglobin Carboxyhemoglobin Sodium Potassium Chloride Carbon Dioxide BUN Creatinine Glucose POC Glucose 168 H 142 H 146 H Calcium Ferritin Total Bilirubin Alkaline Phosphatase Lactate Dehydrogenase Total Creatine Kinase CK-MB (CK-2) Rel Index Troponin T C-Reactive Protein Total Protein Albumin Prealbumin LDL Cholesterol Direct HDL Cholesterol Arterial Blood Glucose Arterial Blood Ionized Calcium Urine WBC (Auto) 03/11/20 03/11/20 03/11/20 11:30 14:01 14:01 WBC 19.7 H RBC 3.04 L Hgb 8.7 L Hct 25.8 L MCV MCH RDW 15.6 H Plt Count Lymph % (Auto) [place] % (Auto) Lymph # (Auto) [place] # (Auto) Seg Neutrophils % Seg Neuts % (Manual) Lymphocytes % (Manual) Monocytes % (Manual) Basophils % (Manual) Seg Neutrophils # Seg Neutrophils # Man Lymphocytes # (Manual) Monocytes # (Manual) Eosinophils # (Manual) Basophils # (Manual) PT INR D-Dimer ABG pH POC ABG pCO2 POC ABG pO2 ABG pO2 ABG HCO3 ABG O2 Saturation ABG Base Excess ABG Hemoglobin ABG Oxyhemoglobin ABG Potassium ABG Glucose Oxyhemoglobin Carboxyhemoglobin Sodium 151 H Potassium Chloride Carbon Dioxide 37 H BUN Creatinine < 0.2 L Glucose 171 H POC Glucose 248 H Calcium Ferritin Total Bilirubin Alkaline Phosphatase Lactate Dehydrogenase Total Creatine Kinase CK-MB (CK-2) Rel Index Troponin T C-Reactive Protein Total Protein Albumin Prealbumin LDL Cholesterol Direct HDL Cholesterol Arterial Blood Glucose Arterial Blood Ionized Calcium Urine WBC (Auto) 03/11/20 03/11/20 03/12/20 17:09 23:52 04:39 WBC 19.9 H RBC 3.16 L Hgb 8.9 L Hct 27.5 L MCV MCH RDW 15.7 H Plt Count Lymph % (Auto) 6.8 L [place] % (Auto) Lymph # (Auto) [place] # (Auto) 1.2 H Seg Neutrophils % 86.0 H Seg Neuts % (Manual) Lymphocytes % (Manual) Monocytes % (Manual) Basophils % (Manual) Seg Neutrophils # 17.1 H Seg Neutrophils # Man Lymphocytes # (Manual) Monocytes # (Manual) Eosinophils # (Manual) Basophils # (Manual) PT INR D-Dimer ABG pH POC ABG pCO2 POC ABG pO2 ABG pO2 ABG HCO3 ABG O2 Saturation ABG Base Excess ABG Hemoglobin ABG Oxyhemoglobin ABG Potassium ABG Glucose Oxyhemoglobin Carboxyhemoglobin Sodium Potassium Chloride Carbon Dioxide BUN Creatinine Glucose POC Glucose 124 H 131 H Calcium Ferritin Total Bilirubin Alkaline Phosphatase Lactate Dehydrogenase Total Creatine Kinase CK-MB (CK-2) Rel Index Troponin T C-Reactive Protein Total Protein Albumin Prealbumin LDL Cholesterol Direct HDL Cholesterol Arterial Blood Glucose Arterial Blood Ionized Calcium Urine WBC (Auto) 03/12/20 03/12/20 03/12/20 04:39 05:28 11:34 WBC RBC Hgb Hct MCV MCH RDW Plt Count Lymph % (Auto) [place] % (Auto) Lymph # (Auto) [place] # (Auto) Seg Neutrophils % Seg Neuts % (Manual) Lymphocytes % (Manual) Monocytes % (Manual) Basophils % (Manual) Seg Neutrophils # Seg Neutrophils # Man Lymphocytes # (Manual) Monocytes # (Manual) Eosinophils # (Manual) Basophils # (Manual) PT INR D-Dimer ABG pH POC ABG pCO2 POC ABG pO2 ABG pO2 ABG HCO3 ABG O2 Saturation ABG Base Excess ABG Hemoglobin ABG Oxyhemoglobin ABG Potassium ABG Glucose Oxyhemoglobin Carboxyhemoglobin Sodium 147 H Potassium Chloride Carbon Dioxide 40 H BUN Creatinine < 0.2 L Glucose 175 H POC Glucose 167 H 144 H Calcium Ferritin Total Bilirubin Alkaline Phosphatase Lactate Dehydrogenase Total Creatine Kinase CK-MB (CK-2) Rel Index Troponin T C-Reactive Protein Total Protein Albumin Prealbumin LDL Cholesterol Direct HDL Cholesterol Arterial Blood Glucose Arterial Blood Ionized Calcium Urine WBC (Auto) 03/12/20 03/12/20 03/13/20 17:32 23:57 05:57 WBC RBC Hgb Hct MCV MCH RDW Plt Count Lymph % (Auto) [place] % (Auto) Lymph # (Auto) [place] # (Auto) Seg Neutrophils % Seg Neuts % (Manual) Lymphocytes % (Manual) Monocytes % (Manual) Basophils % (Manual) Seg Neutrophils # Seg Neutrophils # Man Lymphocytes # (Manual) Monocytes # (Manual) Eosinophils # (Manual) Basophils # (Manual) PT INR D-Dimer ABG pH POC ABG pCO2 POC ABG pO2 ABG pO2 ABG HCO3 ABG O2 Saturation ABG Base Excess ABG Hemoglobin ABG Oxyhemoglobin ABG Potassium ABG Glucose Oxyhemoglobin Carboxyhemoglobin Sodium Potassium Chloride Carbon Dioxide BUN Creatinine Glucose POC Glucose 141 H 137 H 161 H Calcium Ferritin Total Bilirubin Alkaline Phosphatase Lactate Dehydrogenase Total Creatine Kinase CK-MB (CK-2) Rel Index Troponin T C-Reactive Protein Total Protein Albumin Prealbumin LDL Cholesterol Direct HDL Cholesterol Arterial Blood Glucose Arterial Blood Ionized Calcium Urine WBC (Auto) 03/13/20 03/13/20 03/13/20 12:28 14:14 18:39 WBC RBC Hgb Hct MCV MCH RDW Plt Count Lymph % (Auto) [place] % (Auto) Lymph # (Auto) [place] # (Auto) Seg Neutrophils % Seg Neuts % (Manual) Lymphocytes % (Manual) Monocytes % (Manual) Basophils % (Manual) Seg Neutrophils # Seg Neutrophils # Man Lymphocytes # (Manual) Monocytes # (Manual) Eosinophils # (Manual) Basophils # (Manual) PT INR D-Dimer ABG pH POC ABG pCO2 POC ABG pO2 ABG pO2 ABG HCO3 ABG O2 Saturation ABG Base Excess ABG Hemoglobin ABG Oxyhemoglobin ABG Potassium ABG Glucose Oxyhemoglobin Carboxyhemoglobin Sodium Potassium Chloride Carbon Dioxide 39 H BUN Creatinine < 0.2 L Glucose 129 H POC Glucose 130 H 125 H Calcium Ferritin Total Bilirubin Alkaline Phosphatase Lactate Dehydrogenase Total Creatine Kinase CK-MB (CK-2) Rel Index Troponin T C-Reactive Protein Total Protein Albumin Prealbumin LDL Cholesterol Direct HDL Cholesterol Arterial Blood Glucose Arterial Blood Ionized Calcium Urine WBC (Auto) 03/13/20 03/14/20 03/14/20 23:33 05:24 08:07 WBC 16.8 H RBC 2.81 L Hgb 7.9 L Hct 23.9 L MCV MCH RDW 15.9 H Plt Count Lymph % (Auto) [place] % (Auto) Lymph # (Auto) [place] # (Auto) Seg Neutrophils % Seg Neuts % (Manual) 84.0 H Lymphocytes % (Manual) 10.0 L Monocytes % (Manual) Basophils % (Manual) Seg Neutrophils # Seg Neutrophils # Man 14.1 H Lymphocytes # (Manual) Monocytes # (Manual) Eosinophils # (Manual) Basophils # (Manual) PT INR D-Dimer ABG pH POC ABG pCO2 POC ABG pO2 ABG pO2 ABG HCO3 ABG O2 Saturation ABG Base Excess ABG Hemoglobin ABG Oxyhemoglobin ABG Potassium ABG Glucose Oxyhemoglobin Carboxyhemoglobin Sodium Potassium Chloride Carbon Dioxide BUN Creatinine Glucose POC Glucose 146 H 125 H Calcium Ferritin Total Bilirubin Alkaline Phosphatase Lactate Dehydrogenase Total Creatine Kinase CK-MB (CK-2) Rel Index Troponin T C-Reactive Protein Total Protein Albumin Prealbumin LDL Cholesterol Direct HDL Cholesterol Arterial Blood Glucose Arterial Blood Ionized Calcium Urine WBC (Auto) 03/14/20 03/14/20 03/14/20 08:07 12:21 18:26 WBC RBC Hgb Hct MCV MCH RDW Plt Count Lymph % (Auto) [place] % (Auto) Lymph # (Auto) [place] # (Auto) Seg Neutrophils % Seg Neuts % (Manual) Lymphocytes % (Manual) Monocytes % (Manual) Basophils % (Manual) Seg Neutrophils # Seg Neutrophils # Man Lymphocytes # (Manual) Monocytes # (Manual) Eosinophils # (Manual) Basophils # (Manual) PT INR D-Dimer ABG pH POC ABG pCO2 POC ABG pO2 ABG pO2 ABG HCO3 ABG O2 Saturation ABG Base Excess ABG Hemoglobin ABG Oxyhemoglobin ABG Potassium ABG Glucose Oxyhemoglobin Carboxyhemoglobin Sodium Potassium Chloride 97.0 L Carbon Dioxide 37 H BUN Creatinine < 0.2 L Glucose 129 H POC Glucose 109 H 142 H Calcium 8.3 L Ferritin Total Bilirubin Alkaline Phosphatase Lactate Dehydrogenase Total Creatine Kinase CK-MB (CK-2) Rel Index Troponin T C-Reactive Protein Total Protein Albumin Prealbumin LDL Cholesterol Direct HDL Cholesterol Arterial Blood Glucose Arterial Blood Ionized Calcium Urine WBC (Auto) 03/14/20 03/15/20 03/15/20 23:57 05:46 08:06 WBC 19.7 H RBC 3.29 L Hgb 9.1 L Hct 28.0 L MCV MCH RDW 15.9 H Plt Count Lymph % (Auto) [place] % (Auto) Lymph # (Auto) [place] # (Auto) Seg Neutrophils % Seg Neuts % (Manual) Lymphocytes % (Manual) Monocytes % (Manual) Basophils % (Manual) Seg Neutrophils # Seg Neutrophils # Man Lymphocytes # (Manual) Monocytes # (Manual) Eosinophils # (Manual) Basophils # (Manual) PT INR D-Dimer ABG pH POC ABG pCO2 POC ABG pO2 ABG pO2 ABG HCO3 ABG O2 Saturation ABG Base Excess ABG Hemoglobin ABG Oxyhemoglobin ABG Potassium ABG Glucose Oxyhemoglobin Carboxyhemoglobin Sodium Potassium Chloride Carbon Dioxide BUN Creatinine Glucose POC Glucose 157 H 118 H Calcium Ferritin Total Bilirubin Alkaline Phosphatase Lactate Dehydrogenase Total Creatine Kinase CK-MB (CK-2) Rel Index Troponin T C-Reactive Protein Total Protein Albumin Prealbumin LDL Cholesterol Direct HDL Cholesterol Arterial Blood Glucose Arterial Blood Ionized Calcium Urine WBC (Auto) 03/15/20 03/15/20 03/15/20 08:06 12:44 18:09 WBC RBC Hgb Hct MCV MCH RDW Plt Count Lymph % (Auto) [place] % (Auto) Lymph # (Auto) [place] # (Auto) Seg Neutrophils % Seg Neuts % (Manual) Lymphocytes % (Manual) Monocytes % (Manual) Basophils % (Manual) Seg Neutrophils # Seg Neutrophils # Man Lymphocytes # (Manual) Monocytes # (Manual) Eosinophils # (Manual) Basophils # (Manual) PT INR D-Dimer ABG pH POC ABG pCO2 POC ABG pO2 ABG pO2 ABG HCO3 ABG O2 Saturation ABG Base Excess ABG Hemoglobin ABG Oxyhemoglobin ABG Potassium ABG Glucose Oxyhemoglobin Carboxyhemoglobin Sodium 136 L Potassium Chloride 93.6 L Carbon Dioxide 37 H BUN Creatinine < 0.2 L Glucose 132 H POC Glucose 151 H 164 H Calcium Ferritin Total Bilirubin Alkaline Phosphatase Lactate Dehydrogenase Total Creatine Kinase CK-MB (CK-2) Rel Index Troponin T C-Reactive Protein Total Protein Albumin Prealbumin LDL Cholesterol Direct HDL Cholesterol Arterial Blood Glucose Arterial Blood Ionized Calcium Urine WBC (Auto) 03/15/20 03/16/20 03/16/20 23:26 05:39 11:58 WBC RBC Hgb Hct MCV MCH RDW Plt Count Lymph % (Auto) [place] % (Auto) Lymph # (Auto) [place] # (Auto) Seg Neutrophils % Seg Neuts % (Manual) Lymphocytes % (Manual) Monocytes % (Manual) Basophils % (Manual) Seg Neutrophils # Seg Neutrophils # Man Lymphocytes # (Manual) Monocytes # (Manual) Eosinophils # (Manual) Basophils # (Manual) PT INR D-Dimer ABG pH POC ABG pCO2 POC ABG pO2 ABG pO2 ABG HCO3 ABG O2 Saturation ABG Base Excess ABG Hemoglobin ABG Oxyhemoglobin ABG Potassium ABG Glucose Oxyhemoglobin Carboxyhemoglobin Sodium Potassium Chloride Carbon Dioxide BUN Creatinine Glucose POC Glucose 136 H 116 H 109 H Calcium Ferritin Total Bilirubin Alkaline Phosphatase Lactate Dehydrogenase Total Creatine Kinase CK-MB (CK-2) Rel Index Troponin T C-Reactive Protein Total Protein Albumin Prealbumin LDL Cholesterol Direct HDL Cholesterol Arterial Blood Glucose Arterial Blood Ionized Calcium Urine WBC (Auto) 03/16/20 03/17/20 03/17/20 23:56 04:40 04:40 WBC 18.0 H RBC 3.33 L Hgb 9.5 L Hct 28.8 L MCV MCH RDW 16.4 H Plt Count 499 H Lymph % (Auto) [place] % (Auto) Lymph # (Auto) [place] # (Auto) Seg Neutrophils % Seg Neuts % (Manual) 82.0 H Lymphocytes % (Manual) 8.0 L Monocytes % (Manual) Basophils % (Manual) Seg Neutrophils # Seg Neutrophils # Man 14.8 H Lymphocytes # (Manual) Monocytes # (Manual) 1.3 H Eosinophils # (Manual) Basophils # (Manual) 0.2 H PT INR D-Dimer ABG pH POC ABG pCO2 POC ABG pO2 ABG pO2 ABG HCO3 ABG O2 Saturation ABG Base Excess ABG Hemoglobin ABG Oxyhemoglobin ABG Potassium ABG Glucose Oxyhemoglobin Carboxyhemoglobin Sodium Potassium Chloride 97.7 L Carbon Dioxide 32 H BUN Creatinine < 0.2 L Glucose 114 H POC Glucose 131 H Calcium Ferritin Total Bilirubin Alkaline Phosphatase Lactate Dehydrogenase Total Creatine Kinase CK-MB (CK-2) Rel Index Troponin T C-Reactive Protein Total Protein Albumin Prealbumin LDL Cholesterol Direct HDL Cholesterol Arterial Blood Glucose Arterial Blood Ionized Calcium Urine WBC (Auto) 03/18/20 03/18/20 03/18/20 00:21 05:21 11:55 WBC RBC Hgb Hct MCV MCH RDW Plt Count Lymph % (Auto) [place] % (Auto) Lymph # (Auto) [place] # (Auto) Seg Neutrophils % Seg Neuts % (Manual) Lymphocytes % (Manual) Monocytes % (Manual) Basophils % (Manual) Seg Neutrophils # Seg Neutrophils # Man Lymphocytes # (Manual) Monocytes # (Manual) Eosinophils # (Manual) Basophils # (Manual) PT INR D-Dimer ABG pH POC ABG pCO2 POC ABG pO2 ABG pO2 ABG HCO3 ABG O2 Saturation ABG Base Excess ABG Hemoglobin ABG Oxyhemoglobin ABG Potassium ABG Glucose Oxyhemoglobin Carboxyhemoglobin Sodium Potassium Chloride Carbon Dioxide BUN Creatinine Glucose POC Glucose 124 H 138 H 119 H Calcium Ferritin Total Bilirubin Alkaline Phosphatase Lactate Dehydrogenase Total Creatine Kinase CK-MB (CK-2) Rel Index Troponin T C-Reactive Protein Total Protein Albumin Prealbumin LDL Cholesterol Direct HDL Cholesterol Arterial Blood Glucose Arterial Blood Ionized Calcium Urine WBC (Auto) 03/18/20 03/18/20 03/19/20 17:03 23:58 05:24 WBC RBC Hgb Hct MCV MCH RDW Plt Count Lymph % (Auto) [place] % (Auto) Lymph # (Auto) [place] # (Auto) Seg Neutrophils % Seg Neuts % (Manual) Lymphocytes % (Manual) Monocytes % (Manual) Basophils % (Manual) Seg Neutrophils # Seg Neutrophils # Man Lymphocytes # (Manual) Monocytes # (Manual) Eosinophils # (Manual) Basophils # (Manual) PT INR D-Dimer ABG pH POC ABG pCO2 POC ABG pO2 ABG pO2 ABG HCO3 ABG O2 Saturation ABG Base Excess ABG Hemoglobin ABG Oxyhemoglobin ABG Potassium ABG Glucose Oxyhemoglobin Carboxyhemoglobin Sodium Potassium Chloride Carbon Dioxide BUN Creatinine Glucose POC Glucose 128 H 128 H 115 H Calcium Ferritin Total Bilirubin Alkaline Phosphatase Lactate Dehydrogenase Total Creatine Kinase CK-MB (CK-2) Rel Index Troponin T C-Reactive Protein Total Protein Albumin Prealbumin LDL Cholesterol Direct HDL Cholesterol Arterial Blood Glucose Arterial Blood Ionized Calcium Urine WBC (Auto) 03/19/20 03/19/20 03/19/20 08:05 08:05 11:56 WBC 16.8 H RBC 3.36 L Hgb 9.4 L Hct 28.8 L MCV MCH RDW 17.4 H Plt Count 567 H Lymph % (Auto) 7.8 L [place] % (Auto) Lymph # (Auto) [place] # (Auto) 1.2 H Seg Neutrophils % 83.5 H Seg Neuts % (Manual) Lymphocytes % (Manual) Monocytes % (Manual) Basophils % (Manual) Seg Neutrophils # 14.1 H Seg Neutrophils # Man Lymphocytes # (Manual) Monocytes # (Manual) Eosinophils # (Manual) Basophils # (Manual) PT INR D-Dimer ABG pH POC ABG pCO2 POC ABG pO2 ABG pO2 ABG HCO3 ABG O2 Saturation ABG Base Excess ABG Hemoglobin ABG Oxyhemoglobin ABG Potassium ABG Glucose Oxyhemoglobin Carboxyhemoglobin Sodium Potassium Chloride Carbon Dioxide 36 H BUN Creatinine < 0.2 L Glucose 135 H POC Glucose 128 H Calcium Ferritin Total Bilirubin Alkaline Phosphatase Lactate Dehydrogenase Total Creatine Kinase CK-MB (CK-2) Rel Index Troponin T C-Reactive Protein Total Protein Albumin Prealbumin LDL Cholesterol Direct HDL Cholesterol Arterial Blood Glucose Arterial Blood Ionized Calcium Urine WBC (Auto) 03/19/20 03/20/20 03/20/20 23:59 05:12 16:52 WBC RBC Hgb Hct MCV MCH RDW Plt Count Lymph % (Auto) [place] % (Auto) Lymph # (Auto) [place] # (Auto) Seg Neutrophils % Seg Neuts % (Manual) Lymphocytes % (Manual) Monocytes % (Manual) Basophils % (Manual) Seg Neutrophils # Seg Neutrophils # Man Lymphocytes # (Manual) Monocytes # (Manual) Eosinophils # (Manual) Basophils # (Manual) PT INR D-Dimer ABG pH POC ABG pCO2 POC ABG pO2 ABG pO2 ABG HCO3 ABG O2 Saturation ABG Base Excess ABG Hemoglobin ABG Oxyhemoglobin ABG Potassium ABG Glucose Oxyhemoglobin Carboxyhemoglobin Sodium Potassium Chloride Carbon Dioxide BUN Creatinine Glucose POC Glucose 120 H 131 H 124 H Calcium Ferritin Total Bilirubin Alkaline Phosphatase Lactate Dehydrogenase Total Creatine Kinase CK-MB (CK-2) Rel Index Troponin T C-Reactive Protein Total Protein Albumin Prealbumin LDL Cholesterol Direct HDL Cholesterol Arterial Blood Glucose Arterial Blood Ionized Calcium Urine WBC (Auto) 03/20/20 03/21/20 03/21/20 23:35 04:50 07:35 WBC 15.2 H RBC 3.39 L Hgb 9.4 L Hct 29.4 L MCV MCH RDW 17.6 H Plt Count 518 H Lymph % (Auto) [place] % (Auto) Lymph # (Auto) [place] # (Auto) Seg Neutrophils % Seg Neuts % (Manual) 83.0 H Lymphocytes % (Manual) 10.0 L Monocytes % (Manual) Basophils % (Manual) 2.0 H Seg Neutrophils # Seg Neutrophils # Man 12.6 H Lymphocytes # (Manual) Monocytes # (Manual) Eosinophils # (Manual) Basophils # (Manual) 0.3 H PT INR D-Dimer ABG pH POC ABG pCO2 POC ABG pO2 ABG pO2 ABG HCO3 ABG O2 Saturation ABG Base Excess ABG Hemoglobin ABG Oxyhemoglobin ABG Potassium ABG Glucose Oxyhemoglobin Carboxyhemoglobin Sodium Potassium Chloride Carbon Dioxide BUN Creatinine Glucose POC Glucose 125 H 127 H Calcium Ferritin Total Bilirubin Alkaline Phosphatase Lactate Dehydrogenase Total Creatine Kinase CK-MB (CK-2) Rel Index Troponin T C-Reactive Protein Total Protein Albumin Prealbumin LDL Cholesterol Direct HDL Cholesterol Arterial Blood Glucose Arterial Blood Ionized Calcium Urine WBC (Auto) 03/21/20 03/21/20 03/21/20 07:35 11:45 17:22 WBC RBC Hgb Hct MCV MCH RDW Plt Count Lymph % (Auto) [place] % (Auto) Lymph # (Auto) [place] # (Auto) Seg Neutrophils % Seg Neuts % (Manual) Lymphocytes % (Manual) Monocytes % (Manual) Basophils % (Manual) Seg Neutrophils # Seg Neutrophils # Man Lymphocytes # (Manual) Monocytes # (Manual) Eosinophils # (Manual) Basophils # (Manual) PT INR D-Dimer ABG pH POC ABG pCO2 POC ABG pO2 ABG pO2 ABG HCO3 ABG O2 Saturation ABG Base Excess ABG Hemoglobin ABG Oxyhemoglobin ABG Potassium ABG Glucose Oxyhemoglobin Carboxyhemoglobin Sodium 136 L Potassium Chloride 97.7 L Carbon Dioxide 32 H BUN Creatinine < 0.2 L Glucose 103 H POC Glucose 126 H 120 H Calcium Ferritin Total Bilirubin Alkaline Phosphatase Lactate Dehydrogenase Total Creatine Kinase CK-MB (CK-2) Rel Index Troponin T C-Reactive Protein Total Protein Albumin Prealbumin LDL Cholesterol Direct HDL Cholesterol Arterial Blood Glucose Arterial Blood Ionized Calcium Urine WBC (Auto) 03/22/20 03/22/20 03/22/20 05:09 06:34 06:34 WBC 17.5 H RBC 3.52 L Hgb 10.0 L Hct 30.7 L MCV MCH RDW 17.5 H Plt Count 499 H Lymph % (Auto) [place] % (Auto) Lymph # (Auto) [place] # (Auto) Seg Neutrophils % Seg Neuts % (Manual) 80.0 H Lymphocytes % (Manual) 10.0 L Monocytes % (Manual) Basophils % (Manual) Seg Neutrophils # Seg Neutrophils # Man 14.0 H Lymphocytes # (Manual) Monocytes # (Manual) Eosinophils # (Manual) Basophils # (Manual) PT INR D-Dimer ABG pH POC ABG pCO2 POC ABG pO2 ABG pO2 ABG HCO3 ABG O2 Saturation ABG Base Excess ABG Hemoglobin ABG Oxyhemoglobin ABG Potassium ABG Glucose Oxyhemoglobin Carboxyhemoglobin Sodium Potassium Chloride 96.6 L Carbon Dioxide 38 H BUN Creatinine < 0.2 L Glucose 139 H POC Glucose 125 H Calcium Ferritin Total Bilirubin Alkaline Phosphatase Lactate Dehydrogenase Total Creatine Kinase CK-MB (CK-2) Rel Index Troponin T C-Reactive Protein Total Protein Albumin Prealbumin LDL Cholesterol Direct HDL Cholesterol Arterial Blood Glucose Arterial Blood Ionized Calcium Urine WBC (Auto) 03/22/20 03/22/20 03/22/20 11:45 18:00 23:32 WBC RBC Hgb Hct MCV MCH RDW Plt Count Lymph % (Auto) [place] % (Auto) Lymph # (Auto) [place] # (Auto) Seg Neutrophils % Seg Neuts % (Manual) Lymphocytes % (Manual) Monocytes % (Manual) Basophils % (Manual) Seg Neutrophils # Seg Neutrophils # Man Lymphocytes # (Manual) Monocytes # (Manual) Eosinophils # (Manual) Basophils # (Manual) PT INR D-Dimer ABG pH POC ABG pCO2 POC ABG pO2 ABG pO2 ABG HCO3 ABG O2 Saturation ABG Base Excess ABG Hemoglobin ABG Oxyhemoglobin ABG Potassium ABG Glucose Oxyhemoglobin Carboxyhemoglobin Sodium Potassium Chloride Carbon Dioxide BUN Creatinine Glucose POC Glucose 135 H 133 H Calcium Ferritin Total Bilirubin Alkaline Phosphatase Lactate Dehydrogenase Total Creatine Kinase CK-MB (CK-2) Rel Index Troponin T 0.113 H* C-Reactive Protein Total Protein Albumin Prealbumin LDL Cholesterol Direct HDL Cholesterol Arterial Blood Glucose Arterial Blood Ionized Calcium Urine WBC (Auto) 03/23/20 03/23/20 03/23/20 01:47 06:21 07:57 WBC RBC Hgb Hct MCV MCH RDW Plt Count Lymph % (Auto) [place] % (Auto) Lymph # (Auto) [place] # (Auto) Seg Neutrophils % Seg Neuts % (Manual) Lymphocytes % (Manual) Monocytes % (Manual) Basophils % (Manual) Seg Neutrophils # Seg Neutrophils # Man Lymphocytes # (Manual) Monocytes # (Manual) Eosinophils # (Manual) Basophils # (Manual) PT INR D-Dimer ABG pH POC ABG pCO2 POC ABG pO2 ABG pO2 ABG HCO3 ABG O2 Saturation ABG Base Excess ABG Hemoglobin ABG Oxyhemoglobin ABG Potassium ABG Glucose Oxyhemoglobin Carboxyhemoglobin Sodium Potassium Chloride Carbon Dioxide BUN Creatinine Glucose POC Glucose 130 H Calcium Ferritin Total Bilirubin Alkaline Phosphatase Lactate Dehydrogenase Total Creatine Kinase CK-MB (CK-2) Rel Index Troponin T 0.143 H* D 0.105 H* D C-Reactive Protein Total Protein Albumin Prealbumin LDL Cholesterol Direct HDL Cholesterol Arterial Blood Glucose Arterial Blood Ionized Calcium Urine WBC (Auto) 03/23/20 03/24/20 03/24/20 12:02 05:33 07:15 WBC 18.0 H RBC Hgb 11.0 L Hct 34.0 L MCV MCH RDW 17.4 H Plt Count 520 H Lymph % (Auto) [place] % (Auto) Lymph # (Auto) [place] # (Auto) Seg Neutrophils % Seg Neuts % (Manual) 88.0 H Lymphocytes % (Manual) 7.0 L Monocytes % (Manual) Basophils % (Manual) Seg Neutrophils # Seg Neutrophils # Man 15.8 H Lymphocytes # (Manual) Monocytes # (Manual) Eosinophils # (Manual) Basophils # (Manual) PT INR D-Dimer ABG pH POC ABG pCO2 POC ABG pO2 ABG pO2 ABG HCO3 ABG O2 Saturation ABG Base Excess ABG Hemoglobin ABG Oxyhemoglobin ABG Potassium ABG Glucose Oxyhemoglobin Carboxyhemoglobin Sodium Potassium Chloride Carbon Dioxide BUN Creatinine Glucose POC Glucose 137 H 112 H Calcium Ferritin Total Bilirubin Alkaline Phosphatase Lactate Dehydrogenase Total Creatine Kinase CK-MB (CK-2) Rel Index Troponin T C-Reactive Protein Total Protein Albumin Prealbumin LDL Cholesterol Direct HDL Cholesterol Arterial Blood Glucose Arterial Blood Ionized Calcium Urine WBC (Auto) 03/24/20 03/24/20 03/24/20 07:15 11:22 23:30 WBC RBC Hgb Hct MCV MCH RDW Plt Count Lymph % (Auto) [place] % (Auto) Lymph # (Auto) [place] # (Auto) Seg Neutrophils % Seg Neuts % (Manual) Lymphocytes % (Manual) Monocytes % (Manual) Basophils % (Manual) Seg Neutrophils # Seg Neutrophils # Man Lymphocytes # (Manual) Monocytes # (Manual) Eosinophils # (Manual) Basophils # (Manual) PT INR D-Dimer ABG pH POC ABG pCO2 POC ABG pO2 ABG pO2 ABG HCO3 ABG O2 Saturation ABG Base Excess ABG Hemoglobin ABG Oxyhemoglobin ABG Potassium ABG Glucose Oxyhemoglobin Carboxyhemoglobin Sodium Potassium Chloride 96.6 L Carbon Dioxide 38 H BUN Creatinine < 0.2 L Glucose 141 H POC Glucose 130 H 120 H Calcium Ferritin Total Bilirubin Alkaline Phosphatase Lactate Dehydrogenase Total Creatine Kinase CK-MB (CK-2) Rel Index Troponin T C-Reactive Protein Total Protein Albumin Prealbumin LDL Cholesterol Direct HDL Cholesterol Arterial Blood Glucose Arterial Blood Ionized Calcium Urine WBC (Auto) 03/25/20 03/25/20 03/25/20 05:48 17:53 23:18 WBC RBC Hgb Hct MCV MCH RDW Plt Count Lymph % (Auto) [place] % (Auto) Lymph # (Auto) [place] # (Auto) Seg Neutrophils % Seg Neuts % (Manual) Lymphocytes % (Manual) Monocytes % (Manual) Basophils % (Manual) Seg Neutrophils # Seg Neutrophils # Man Lymphocytes # (Manual) Monocytes # (Manual) Eosinophils # (Manual) Basophils # (Manual) PT INR D-Dimer ABG pH POC ABG pCO2 POC ABG pO2 ABG pO2 ABG HCO3 ABG O2 Saturation ABG Base Excess ABG Hemoglobin ABG Oxyhemoglobin ABG Potassium ABG Glucose Oxyhemoglobin Carboxyhemoglobin Sodium Potassium Chloride Carbon Dioxide BUN Creatinine Glucose POC Glucose 124 H 109 H 131 H Calcium Ferritin Total Bilirubin Alkaline Phosphatase Lactate Dehydrogenase Total Creatine Kinase CK-MB (CK-2) Rel Index Troponin T C-Reactive Protein Total Protein Albumin Prealbumin LDL Cholesterol Direct HDL Cholesterol Arterial Blood Glucose Arterial Blood Ionized Calcium Urine WBC (Auto) 03/26/20 03/26/20 03/26/20 05:21 08:49 08:49 WBC 19.7 H RBC Hgb 10.7 L Hct 33.5 L MCV MCH 27 L RDW 17.1 H Plt Count 480 H Lymph % (Auto) 5.7 L [place] % (Auto) Lymph # (Auto) 1.1 L [place] # (Auto) 1.2 H Seg Neutrophils % 87.7 H Seg Neuts % (Manual) Lymphocytes % (Manual) Monocytes % (Manual) Basophils % (Manual) Seg Neutrophils # 17.2 H Seg Neutrophils # Man Lymphocytes # (Manual) Monocytes # (Manual) Eosinophils # (Manual) Basophils # (Manual) PT INR D-Dimer ABG pH POC ABG pCO2 POC ABG pO2 ABG pO2 ABG HCO3 ABG O2 Saturation ABG Base Excess ABG Hemoglobin ABG Oxyhemoglobin ABG Potassium ABG Glucose Oxyhemoglobin Carboxyhemoglobin Sodium Potassium Chloride 97.2 L Carbon Dioxide 36 H BUN Creatinine < 0.2 L Glucose 127 H POC Glucose 116 H Calcium Ferritin Total Bilirubin Alkaline Phosphatase Lactate Dehydrogenase Total Creatine Kinase CK-MB (CK-2) Rel Index Troponin T C-Reactive Protein Total Protein Albumin Prealbumin LDL Cholesterol Direct HDL Cholesterol Arterial Blood Glucose Arterial Blood Ionized Calcium Urine WBC (Auto) 03/26/20 03/26/20 03/26/20 11:38 18:44 23:06 WBC RBC Hgb Hct MCV MCH RDW Plt Count Lymph % (Auto) [place] % (Auto) Lymph # (Auto) [place] # (Auto) Seg Neutrophils % Seg Neuts % (Manual) Lymphocytes % (Manual) Monocytes % (Manual) Basophils % (Manual) Seg Neutrophils # Seg Neutrophils # Man Lymphocytes # (Manual) Monocytes # (Manual) Eosinophils # (Manual) Basophils # (Manual) PT INR D-Dimer ABG pH POC ABG pCO2 POC ABG pO2 ABG pO2 ABG HCO3 ABG O2 Saturation ABG Base Excess ABG Hemoglobin ABG Oxyhemoglobin ABG Potassium ABG Glucose Oxyhemoglobin Carboxyhemoglobin Sodium Potassium Chloride Carbon Dioxide BUN Creatinine Glucose POC Glucose 120 H 111 H 134 H Calcium Ferritin Total Bilirubin Alkaline Phosphatase Lactate Dehydrogenase Total Creatine Kinase CK-MB (CK-2) Rel Index Troponin T C-Reactive Protein Total Protein Albumin Prealbumin LDL Cholesterol Direct HDL Cholesterol Arterial Blood Glucose Arterial Blood Ionized Calcium Urine WBC (Auto) 03/27/20 03/27/20 03/27/20 05:41 05:59 05:59 WBC 18.6 H RBC Hgb 10.1 L Hct 31.4 L MCV MCH RDW 17.2 H Plt Count Lymph % (Auto) 8.0 L [place] % (Auto) Lymph # (Auto) [place] # (Auto) 1.2 H Seg Neutrophils % 84.7 H Seg Neuts % (Manual) Lymphocytes % (Manual) Monocytes % (Manual) Basophils % (Manual) Seg Neutrophils # 15.8 H Seg Neutrophils # Man Lymphocytes # (Manual) Monocytes # (Manual) Eosinophils # (Manual) Basophils # (Manual) PT INR D-Dimer ABG pH POC ABG pCO2 POC ABG pO2 ABG pO2 ABG HCO3 ABG O2 Saturation ABG Base Excess ABG Hemoglobin ABG Oxyhemoglobin ABG Potassium ABG Glucose Oxyhemoglobin Carboxyhemoglobin Sodium Potassium Chloride Carbon Dioxide 34 H BUN Creatinine < 0.2 L Glucose 127 H POC Glucose 129 H Calcium Ferritin Total Bilirubin Alkaline Phosphatase Lactate Dehydrogenase Total Creatine Kinase CK-MB (CK-2) Rel Index Troponin T C-Reactive Protein Total Protein Albumin Prealbumin LDL Cholesterol Direct HDL Cholesterol Arterial Blood Glucose Arterial Blood Ionized Calcium Urine WBC (Auto) 03/27/20 03/27/20 03/28/20 17:28 23:22 05:23 WBC RBC Hgb Hct MCV MCH RDW Plt Count Lymph % (Auto) [place] % (Auto) Lymph # (Auto) [place] # (Auto) Seg Neutrophils % Seg Neuts % (Manual) Lymphocytes % (Manual) Monocytes % (Manual) Basophils % (Manual) Seg Neutrophils # Seg Neutrophils # Man Lymphocytes # (Manual) Monocytes # (Manual) Eosinophils # (Manual) Basophils # (Manual) PT INR D-Dimer ABG pH POC ABG pCO2 POC ABG pO2 ABG pO2 ABG HCO3 ABG O2 Saturation ABG Base Excess ABG Hemoglobin ABG Oxyhemoglobin ABG Potassium ABG Glucose Oxyhemoglobin Carboxyhemoglobin Sodium Potassium Chloride Carbon Dioxide BUN Creatinine Glucose POC Glucose 108 H 119 H 129 H Calcium Ferritin Total Bilirubin Alkaline Phosphatase Lactate Dehydrogenase Total Creatine Kinase CK-MB (CK-2) Rel Index Troponin T C-Reactive Protein Total Protein Albumin Prealbumin LDL Cholesterol Direct HDL Cholesterol Arterial Blood Glucose Arterial Blood Ionized Calcium Urine WBC (Auto) 03/28/20 03/28/20 03/28/20 10:28 10:28 11:36 WBC 23.6 H RBC 3.62 L Hgb 10.0 L Hct 30.8 L MCV MCH RDW 16.4 H Plt Count Lymph % (Auto) [place] % (Auto) Lymph # (Auto) [place] # (Auto) Seg Neutrophils % Seg Neuts % (Manual) 89.0 H Lymphocytes % (Manual) 5.0 L Monocytes % (Manual) Basophils % (Manual) Seg Neutrophils # Seg Neutrophils # Man 21.0 H Lymphocytes # (Manual) Monocytes # (Manual) 1.2 H Eosinophils # (Manual) Basophils # (Manual) 0.2 H PT INR D-Dimer ABG pH POC ABG pCO2 POC ABG pO2 ABG pO2 ABG HCO3 ABG O2 Saturation ABG Base Excess ABG Hemoglobin ABG Oxyhemoglobin ABG Potassium ABG Glucose Oxyhemoglobin Carboxyhemoglobin Sodium 134 L Potassium Chloride 94.2 L Carbon Dioxide 35 H BUN Creatinine < 0.2 L Glucose 134 H POC Glucose Calcium Ferritin Total Bilirubin Alkaline Phosphatase Lactate Dehydrogenase Total Creatine Kinase CK-MB (CK-2) Rel Index Troponin T C-Reactive Protein Total Protein Albumin Prealbumin LDL Cholesterol Direct HDL Cholesterol Arterial Blood Glucose Arterial Blood Ionized Calcium Urine WBC (Auto) 39.0 H 03/28/20 03/28/20 03/28/20 11:51 17:08 17:17 WBC RBC Hgb Hct MCV MCH RDW Plt Count Lymph % (Auto) [place] % (Auto) Lymph # (Auto) [place] # (Auto) Seg Neutrophils % Seg Neuts % (Manual) Lymphocytes % (Manual) Monocytes % (Manual) Basophils % (Manual) Seg Neutrophils # Seg Neutrophils # Man Lymphocytes # (Manual) Monocytes # (Manual) Eosinophils # (Manual) Basophils # (Manual) PT INR D-Dimer ABG pH POC ABG pCO2 POC ABG pO2 ABG pO2 ABG HCO3 ABG O2 Saturation ABG Base Excess ABG Hemoglobin ABG Oxyhemoglobin ABG Potassium ABG Glucose Oxyhemoglobin Carboxyhemoglobin Sodium Potassium Chloride Carbon Dioxide BUN Creatinine Glucose POC Glucose 123 H 112 H Calcium Ferritin Total Bilirubin Alkaline Phosphatase Lactate Dehydrogenase Total Creatine Kinase 47 L CK-MB (CK-2) Rel Index 4.6 H Troponin T 0.090 H C-Reactive Protein Total Protein Albumin Prealbumin LDL Cholesterol Direct HDL Cholesterol Arterial Blood Glucose Arterial Blood Ionized Calcium Urine WBC (Auto) 03/28/20 03/29/20 03/29/20 23:22 05:22 10:58 WBC RBC Hgb Hct MCV MCH RDW Plt Count Lymph % (Auto) [place] % (Auto) Lymph # (Auto) [place] # (Auto) Seg Neutrophils % Seg Neuts % (Manual) Lymphocytes % (Manual) Monocytes % (Manual) Basophils % (Manual) Seg Neutrophils # Seg Neutrophils # Man Lymphocytes # (Manual) Monocytes # (Manual) Eosinophils # (Manual) Basophils # (Manual) PT INR D-Dimer ABG pH POC ABG pCO2 POC ABG pO2 ABG pO2 ABG HCO3 ABG O2 Saturation ABG Base Excess ABG Hemoglobin ABG Oxyhemoglobin ABG Potassium ABG Glucose Oxyhemoglobin Carboxyhemoglobin Sodium Potassium Chloride Carbon Dioxide BUN Creatinine Glucose POC Glucose 122 H 116 H 133 H Calcium Ferritin Total Bilirubin Alkaline Phosphatase Lactate Dehydrogenase Total Creatine Kinase CK-MB (CK-2) Rel Index Troponin T C-Reactive Protein Total Protein Albumin Prealbumin LDL Cholesterol Direct HDL Cholesterol Arterial Blood Glucose Arterial Blood Ionized Calcium Urine WBC (Auto) 03/29/20 03/29/20 03/30/20 17:18 23:14 04:57 WBC RBC Hgb Hct MCV MCH RDW Plt Count Lymph % (Auto) [place] % (Auto) Lymph # (Auto) [place] # (Auto) Seg Neutrophils % Seg Neuts % (Manual) Lymphocytes % (Manual) Monocytes % (Manual) Basophils % (Manual) Seg Neutrophils # Seg Neutrophils # Man Lymphocytes # (Manual) Monocytes # (Manual) Eosinophils # (Manual) Basophils # (Manual) PT INR D-Dimer ABG pH POC ABG pCO2 POC ABG pO2 ABG pO2 ABG HCO3 ABG O2 Saturation ABG Base Excess ABG Hemoglobin ABG Oxyhemoglobin ABG Potassium ABG Glucose Oxyhemoglobin Carboxyhemoglobin Sodium Potassium Chloride Carbon Dioxide BUN Creatinine Glucose POC Glucose 111 H 114 H 130 H Calcium Ferritin Total Bilirubin Alkaline Phosphatase Lactate Dehydrogenase Total Creatine Kinase CK-MB (CK-2) Rel Index Troponin T C-Reactive Protein Total Protein Albumin Prealbumin LDL Cholesterol Direct HDL Cholesterol Arterial Blood Glucose Arterial Blood Ionized Calcium Urine WBC (Auto) 03/30/20 03/30/20 03/30/20 11:38 14:47 14:47 WBC 19.9 H RBC Hgb 10.9 L Hct 34.4 L MCV MCH 27 L RDW 16.5 H Plt Count 441 H Lymph % (Auto) 6.4 L [place] % (Auto) Lymph # (Auto) [place] # (Auto) 1.4 H Seg Neutrophils % 86.1 H Seg Neuts % (Manual) Lymphocytes % (Manual) Monocytes % (Manual) Basophils % (Manual) Seg Neutrophils # 17.1 H Seg Neutrophils # Man Lymphocytes # (Manual) Monocytes # (Manual) Eosinophils # (Manual) Basophils # (Manual) PT INR D-Dimer ABG pH POC ABG pCO2 POC ABG pO2 ABG pO2 ABG HCO3 ABG O2 Saturation ABG Base Excess ABG Hemoglobin ABG Oxyhemoglobin ABG Potassium ABG Glucose Oxyhemoglobin Carboxyhemoglobin Sodium 133 L Potassium Chloride 94.6 L Carbon Dioxide 33 H BUN Creatinine < 0.2 L Glucose 194 H POC Glucose 139 H Calcium Ferritin Total Bilirubin Alkaline Phosphatase Lactate Dehydrogenase Total Creatine Kinase CK-MB (CK-2) Rel Index Troponin T C-Reactive Protein Total Protein Albumin 2.8 L Prealbumin LDL Cholesterol Direct HDL Cholesterol Arterial Blood Glucose Arterial Blood Ionized Calcium Urine WBC (Auto) 03/30/20 03/31/20 03/31/20 17:07 05:02 15:21 WBC RBC Hgb Hct MCV MCH RDW Plt Count Lymph % (Auto) [place] % (Auto) Lymph # (Auto) [place] # (Auto) Seg Neutrophils % Seg Neuts % (Manual) Lymphocytes % (Manual) Monocytes % (Manual) Basophils % (Manual) Seg Neutrophils # Seg Neutrophils # Man Lymphocytes # (Manual) Monocytes # (Manual) Eosinophils # (Manual) Basophils # (Manual) PT INR D-Dimer ABG pH POC ABG pCO2 POC ABG pO2 ABG pO2 ABG HCO3 ABG O2 Saturation ABG Base Excess ABG Hemoglobin ABG Oxyhemoglobin ABG Potassium ABG Glucose Oxyhemoglobin Carboxyhemoglobin Sodium Potassium Chloride Carbon Dioxide BUN Creatinine Glucose POC Glucose 163 H 108 H 110 H Calcium Ferritin Total Bilirubin Alkaline Phosphatase Lactate Dehydrogenase Total Creatine Kinase CK-MB (CK-2) Rel Index Troponin T C-Reactive Protein Total Protein Albumin Prealbumin LDL Cholesterol Direct HDL Cholesterol Arterial Blood Glucose Arterial Blood Ionized Calcium Urine WBC (Auto) 03/31/20 03/31/20 04/01/20 17:58 23:19 05:09 WBC RBC Hgb Hct MCV MCH RDW Plt Count Lymph % (Auto) [place] % (Auto) Lymph # (Auto) [place] # (Auto) Seg Neutrophils % Seg Neuts % (Manual) Lymphocytes % (Manual) Monocytes % (Manual) Basophils % (Manual) Seg Neutrophils # Seg Neutrophils # Man Lymphocytes # (Manual) Monocytes # (Manual) Eosinophils # (Manual) Basophils # (Manual) PT INR D-Dimer ABG pH POC ABG pCO2 POC ABG pO2 ABG pO2 ABG HCO3 ABG O2 Saturation ABG Base Excess ABG Hemoglobin ABG Oxyhemoglobin ABG Potassium ABG Glucose Oxyhemoglobin Carboxyhemoglobin Sodium Potassium Chloride Carbon Dioxide BUN Creatinine Glucose POC Glucose 110 H 131 H 124 H Calcium Ferritin Total Bilirubin Alkaline Phosphatase Lactate Dehydrogenase Total Creatine Kinase CK-MB (CK-2) Rel Index Troponin T C-Reactive Protein Total Protein Albumin Prealbumin LDL Cholesterol Direct HDL Cholesterol Arterial Blood Glucose Arterial Blood Ionized Calcium Urine WBC (Auto) 04/01/20 04/01/20 04/01/20 11:50 17:01 23:21 WBC RBC Hgb Hct MCV MCH RDW Plt Count Lymph % (Auto) [place] % (Auto) Lymph # (Auto) [place] # (Auto) Seg Neutrophils % Seg Neuts % (Manual) Lymphocytes % (Manual) Monocytes % (Manual) Basophils % (Manual) Seg Neutrophils # Seg Neutrophils # Man Lymphocytes # (Manual) Monocytes # (Manual) Eosinophils # (Manual) Basophils # (Manual) PT INR D-Dimer ABG pH POC ABG pCO2 POC ABG pO2 ABG pO2 ABG HCO3 ABG O2 Saturation ABG Base Excess ABG Hemoglobin ABG Oxyhemoglobin ABG Potassium ABG Glucose Oxyhemoglobin Carboxyhemoglobin Sodium Potassium Chloride Carbon Dioxide BUN Creatinine Glucose POC Glucose 136 H 115 H 124 H Calcium Ferritin Total Bilirubin Alkaline Phosphatase Lactate Dehydrogenase Total Creatine Kinase CK-MB (CK-2) Rel Index Troponin T C-Reactive Protein Total Protein Albumin Prealbumin LDL Cholesterol Direct HDL Cholesterol Arterial Blood Glucose Arterial Blood Ionized Calcium Urine WBC (Auto) 04/02/20 04/02/20 04/02/20 05:27 11:58 17:58 WBC RBC Hgb Hct MCV MCH RDW Plt Count Lymph % (Auto) [place] % (Auto) Lymph # (Auto) [place] # (Auto) Seg Neutrophils % Seg Neuts % (Manual) Lymphocytes % (Manual) Monocytes % (Manual) Basophils % (Manual) Seg Neutrophils # Seg Neutrophils # Man Lymphocytes # (Manual) Monocytes # (Manual) Eosinophils # (Manual) Basophils # (Manual) PT INR D-Dimer ABG pH POC ABG pCO2 POC ABG pO2 ABG pO2 ABG HCO3 ABG O2 Saturation ABG Base Excess ABG Hemoglobin ABG Oxyhemoglobin ABG Potassium ABG Glucose Oxyhemoglobin Carboxyhemoglobin Sodium Potassium Chloride Carbon Dioxide BUN Creatinine Glucose POC Glucose 117 H 133 H 122 H Calcium Ferritin Total Bilirubin Alkaline Phosphatase Lactate Dehydrogenase Total Creatine Kinase CK-MB (CK-2) Rel Index Troponin T C-Reactive Protein Total Protein Albumin Prealbumin LDL Cholesterol Direct HDL Cholesterol Arterial Blood Glucose Arterial Blood Ionized Calcium Urine WBC (Auto) 04/02/20 04/03/20 04/03/20 23:12 05:11 11:11 WBC RBC Hgb Hct MCV MCH RDW Plt Count Lymph % (Auto) [place] % (Auto) Lymph # (Auto) [place] # (Auto) Seg Neutrophils % Seg Neuts % (Manual) Lymphocytes % (Manual) Monocytes % (Manual) Basophils % (Manual) Seg Neutrophils # Seg Neutrophils # Man Lymphocytes # (Manual) Monocytes # (Manual) Eosinophils # (Manual) Basophils # (Manual) PT INR D-Dimer ABG pH POC ABG pCO2 POC ABG pO2 ABG pO2 ABG HCO3 ABG O2 Saturation ABG Base Excess ABG Hemoglobin ABG Oxyhemoglobin ABG Potassium ABG Glucose Oxyhemoglobin Carboxyhemoglobin Sodium Potassium Chloride Carbon Dioxide BUN Creatinine Glucose POC Glucose 130 H 139 H 136 H Calcium Ferritin Total Bilirubin Alkaline Phosphatase Lactate Dehydrogenase Total Creatine Kinase CK-MB (CK-2) Rel Index Troponin T C-Reactive Protein Total Protein Albumin Prealbumin LDL Cholesterol Direct HDL Cholesterol Arterial Blood Glucose Arterial Blood Ionized Calcium Urine WBC (Auto) 04/03/20 04/03/20 04/04/20 16:51 23:25 05:29 WBC RBC Hgb Hct MCV MCH RDW Plt Count Lymph % (Auto) [place] % (Auto) Lymph # (Auto) [place] # (Auto) Seg Neutrophils % Seg Neuts % (Manual) Lymphocytes % (Manual) Monocytes % (Manual) Basophils % (Manual) Seg Neutrophils # Seg Neutrophils # Man Lymphocytes # (Manual) Monocytes # (Manual) Eosinophils # (Manual) Basophils # (Manual) PT INR D-Dimer ABG pH POC ABG pCO2 POC ABG pO2 ABG pO2 ABG HCO3 ABG O2 Saturation ABG Base Excess ABG Hemoglobin ABG Oxyhemoglobin ABG Potassium ABG Glucose Oxyhemoglobin Carboxyhemoglobin Sodium Potassium Chloride Carbon Dioxide BUN Creatinine Glucose POC Glucose 118 H 111 H 126 H Calcium Ferritin Total Bilirubin Alkaline Phosphatase Lactate Dehydrogenase Total Creatine Kinase CK-MB (CK-2) Rel Index Troponin T C-Reactive Protein Total Protein Albumin Prealbumin LDL Cholesterol Direct HDL Cholesterol Arterial Blood Glucose Arterial Blood Ionized Calcium Urine WBC (Auto) 04/04/20 04/04/20 04/04/20 11:47 17:41 23:05 WBC RBC Hgb Hct MCV MCH RDW Plt Count Lymph % (Auto) [place] % (Auto) Lymph # (Auto) [place] # (Auto) Seg Neutrophils % Seg Neuts % (Manual) Lymphocytes % (Manual) Monocytes % (Manual) Basophils % (Manual) Seg Neutrophils # Seg Neutrophils # Man Lymphocytes # (Manual) Monocytes # (Manual) Eosinophils # (Manual) Basophils # (Manual) PT INR D-Dimer ABG pH POC ABG pCO2 POC ABG pO2 ABG pO2 ABG HCO3 ABG O2 Saturation ABG Base Excess ABG Hemoglobin ABG Oxyhemoglobin ABG Potassium ABG Glucose Oxyhemoglobin Carboxyhemoglobin Sodium Potassium Chloride Carbon Dioxide BUN Creatinine Glucose POC Glucose 123 H 120 H 119 H Calcium Ferritin Total Bilirubin Alkaline Phosphatase Lactate Dehydrogenase Total Creatine Kinase CK-MB (CK-2) Rel Index Troponin T C-Reactive Protein Total Protein Albumin Prealbumin LDL Cholesterol Direct HDL Cholesterol Arterial Blood Glucose Arterial Blood Ionized Calcium Urine WBC (Auto) 04/05/20 04/05/20 04/05/20 05:14 12:16 18:48 WBC RBC Hgb Hct MCV MCH RDW Plt Count Lymph % (Auto) [place] % (Auto) Lymph # (Auto) [place] # (Auto) Seg Neutrophils % Seg Neuts % (Manual) Lymphocytes % (Manual) Monocytes % (Manual) Basophils % (Manual) Seg Neutrophils # Seg Neutrophils # Man Lymphocytes # (Manual) Monocytes # (Manual) Eosinophils # (Manual) Basophils # (Manual) PT INR D-Dimer ABG pH POC ABG pCO2 POC ABG pO2 ABG pO2 ABG HCO3 ABG O2 Saturation ABG Base Excess ABG Hemoglobin ABG Oxyhemoglobin ABG Potassium ABG Glucose Oxyhemoglobin Carboxyhemoglobin Sodium Potassium Chloride Carbon Dioxide BUN Creatinine Glucose POC Glucose 123 H 148 H 106 H Calcium Ferritin Total Bilirubin Alkaline Phosphatase Lactate Dehydrogenase Total Creatine Kinase CK-MB (CK-2) Rel Index Troponin T C-Reactive Protein Total Protein Albumin Prealbumin LDL Cholesterol Direct HDL Cholesterol Arterial Blood Glucose Arterial Blood Ionized Calcium Urine WBC (Auto) 04/06/20 04/06/20 04/06/20 00:47 03:26 08:24 WBC RBC Hgb Hct MCV MCH RDW Plt Count Lymph % (Auto) [place] % (Auto) Lymph # (Auto) [place] # (Auto) Seg Neutrophils % Seg Neuts % (Manual) Lymphocytes % (Manual) Monocytes % (Manual) Basophils % (Manual) Seg Neutrophils # Seg Neutrophils # Man Lymphocytes # (Manual) Monocytes # (Manual) Eosinophils # (Manual) Basophils # (Manual) PT INR D-Dimer ABG pH POC ABG pCO2 POC ABG pO2 ABG pO2 ABG HCO3 ABG O2 Saturation ABG Base Excess ABG Hemoglobin ABG Oxyhemoglobin ABG Potassium ABG Glucose Oxyhemoglobin Carboxyhemoglobin Sodium Potassium Chloride Carbon Dioxide BUN Creatinine Glucose POC Glucose 129 H 134 H 131 H Calcium Ferritin Total Bilirubin Alkaline Phosphatase Lactate Dehydrogenase Total Creatine Kinase CK-MB (CK-2) Rel Index Troponin T C-Reactive Protein Total Protein Albumin Prealbumin LDL Cholesterol Direct HDL Cholesterol Arterial Blood Glucose Arterial Blood Ionized Calcium Urine WBC (Auto) 04/06/20 04/06/20 04/06/20 11:16 16:27 23:01 WBC RBC Hgb Hct MCV MCH RDW Plt Count Lymph % (Auto) [place] % (Auto) Lymph # (Auto) [place] # (Auto) Seg Neutrophils % Seg Neuts % (Manual) Lymphocytes % (Manual) Monocytes % (Manual) Basophils % (Manual) Seg Neutrophils # Seg Neutrophils # Man Lymphocytes # (Manual) Monocytes # (Manual) Eosinophils # (Manual) Basophils # (Manual) PT INR D-Dimer ABG pH POC ABG pCO2 POC ABG pO2 ABG pO2 ABG HCO3 ABG O2 Saturation ABG Base Excess ABG Hemoglobin ABG Oxyhemoglobin ABG Potassium ABG Glucose Oxyhemoglobin Carboxyhemoglobin Sodium Potassium Chloride Carbon Dioxide BUN Creatinine Glucose POC Glucose 131 H 107 H 125 H Calcium Ferritin Total Bilirubin Alkaline Phosphatase Lactate Dehydrogenase Total Creatine Kinase CK-MB (CK-2) Rel Index Troponin T C-Reactive Protein Total Protein Albumin Prealbumin LDL Cholesterol Direct HDL Cholesterol Arterial Blood Glucose Arterial Blood Ionized Calcium Urine WBC (Auto) 04/07/20 04/07/20 04/07/20 05:24 12:41 17:40 WBC RBC Hgb Hct MCV MCH RDW Plt Count Lymph % (Auto) [place] % (Auto) Lymph # (Auto) [place] # (Auto) Seg Neutrophils % Seg Neuts % (Manual) Lymphocytes % (Manual) Monocytes % (Manual) Basophils % (Manual) Seg Neutrophils # Seg Neutrophils # Man Lymphocytes # (Manual) Monocytes # (Manual) Eosinophils # (Manual) Basophils # (Manual) PT INR D-Dimer ABG pH POC ABG pCO2 POC ABG pO2 ABG pO2 ABG HCO3 ABG O2 Saturation ABG Base Excess ABG Hemoglobin ABG Oxyhemoglobin ABG Potassium ABG Glucose Oxyhemoglobin Carboxyhemoglobin Sodium Potassium Chloride Carbon Dioxide BUN Creatinine Glucose POC Glucose 125 H 145 H 123 H Calcium Ferritin Total Bilirubin Alkaline Phosphatase Lactate Dehydrogenase Total Creatine Kinase CK-MB (CK-2) Rel Index Troponin T C-Reactive Protein Total Protein Albumin Prealbumin LDL Cholesterol Direct HDL Cholesterol Arterial Blood Glucose Arterial Blood Ionized Calcium Urine WBC (Auto) 04/07/20 04/08/20 04/08/20 23:22 05:40 11:29 WBC RBC Hgb Hct MCV MCH RDW Plt Count Lymph % (Auto) [place] % (Auto) Lymph # (Auto) [place] # (Auto) Seg Neutrophils % Seg Neuts % (Manual) Lymphocytes % (Manual) Monocytes % (Manual) Basophils % (Manual) Seg Neutrophils # Seg Neutrophils # Man Lymphocytes # (Manual) Monocytes # (Manual) Eosinophils # (Manual) Basophils # (Manual) PT INR D-Dimer ABG pH POC ABG pCO2 POC ABG pO2 ABG pO2 ABG HCO3 ABG O2 Saturation ABG Base Excess ABG Hemoglobin ABG Oxyhemoglobin ABG Potassium ABG Glucose Oxyhemoglobin Carboxyhemoglobin Sodium Potassium Chloride Carbon Dioxide BUN Creatinine Glucose POC Glucose 133 H 125 H 116 H Calcium Ferritin Total Bilirubin Alkaline Phosphatase Lactate Dehydrogenase Total Creatine Kinase CK-MB (CK-2) Rel Index Troponin T C-Reactive Protein Total Protein Albumin Prealbumin LDL Cholesterol Direct HDL Cholesterol Arterial Blood Glucose Arterial Blood Ionized Calcium Urine WBC (Auto) 04/08/20 04/09/20 04/09/20 17:43 05:47 12:22 WBC RBC Hgb Hct MCV MCH RDW Plt Count Lymph % (Auto) [place] % (Auto) Lymph # (Auto) [place] # (Auto) Seg Neutrophils % Seg Neuts % (Manual) Lymphocytes % (Manual) Monocytes % (Manual) Basophils % (Manual) Seg Neutrophils # Seg Neutrophils # Man Lymphocytes # (Manual) Monocytes # (Manual) Eosinophils # (Manual) Basophils # (Manual) PT INR D-Dimer ABG pH POC ABG pCO2 POC ABG pO2 ABG pO2 ABG HCO3 ABG O2 Saturation ABG Base Excess ABG Hemoglobin ABG Oxyhemoglobin ABG Potassium ABG Glucose Oxyhemoglobin Carboxyhemoglobin Sodium Potassium Chloride Carbon Dioxide BUN Creatinine Glucose POC Glucose 123 H 108 H 116 H Calcium Ferritin Total Bilirubin Alkaline Phosphatase Lactate Dehydrogenase Total Creatine Kinase CK-MB (CK-2) Rel Index Troponin T C-Reactive Protein Total Protein Albumin Prealbumin LDL Cholesterol Direct HDL Cholesterol Arterial Blood Glucose Arterial Blood Ionized Calcium Urine WBC (Auto) 04/09/20 04/09/20 04/10/20 17:24 23:52 06:10 WBC RBC Hgb Hct MCV MCH RDW Plt Count Lymph % (Auto) [place] % (Auto) Lymph # (Auto) [place] # (Auto) Seg Neutrophils % Seg Neuts % (Manual) Lymphocytes % (Manual) Monocytes % (Manual) Basophils % (Manual) Seg Neutrophils # Seg Neutrophils # Man Lymphocytes # (Manual) Monocytes # (Manual) Eosinophils # (Manual) Basophils # (Manual) PT INR D-Dimer ABG pH POC ABG pCO2 POC ABG pO2 ABG pO2 ABG HCO3 ABG O2 Saturation ABG Base Excess ABG Hemoglobin ABG Oxyhemoglobin ABG Potassium ABG Glucose Oxyhemoglobin Carboxyhemoglobin Sodium Potassium Chloride Carbon Dioxide BUN Creatinine Glucose POC Glucose 108 H 126 H 122 H Calcium Ferritin Total Bilirubin Alkaline Phosphatase Lactate Dehydrogenase Total Creatine Kinase CK-MB (CK-2) Rel Index Troponin T C-Reactive Protein Total Protein Albumin Prealbumin LDL Cholesterol Direct HDL Cholesterol Arterial Blood Glucose Arterial Blood Ionized Calcium Urine WBC (Auto) 04/10/20 04/10/20 04/10/20 11:27 18:11 23:24 WBC RBC Hgb Hct MCV MCH RDW Plt Count Lymph % (Auto) [place] % (Auto) Lymph # (Auto) [place] # (Auto) Seg Neutrophils % Seg Neuts % (Manual) Lymphocytes % (Manual) Monocytes % (Manual) Basophils % (Manual) Seg Neutrophils # Seg Neutrophils # Man Lymphocytes # (Manual) Monocytes # (Manual) Eosinophils # (Manual) Basophils # (Manual) PT INR D-Dimer ABG pH POC ABG pCO2 POC ABG pO2 ABG pO2 ABG HCO3 ABG O2 Saturation ABG Base Excess ABG Hemoglobin ABG Oxyhemoglobin ABG Potassium ABG Glucose Oxyhemoglobin Carboxyhemoglobin Sodium Potassium Chloride Carbon Dioxide BUN Creatinine Glucose POC Glucose 129 H 125 H 107 H Calcium Ferritin Total Bilirubin Alkaline Phosphatase Lactate Dehydrogenase Total Creatine Kinase CK-MB (CK-2) Rel Index Troponin T C-Reactive Protein Total Protein Albumin Prealbumin LDL Cholesterol Direct HDL Cholesterol Arterial Blood Glucose Arterial Blood Ionized Calcium Urine WBC (Auto) 04/11/20 04/11/20 04/11/20 05:28 11:46 23:49 WBC RBC Hgb Hct MCV MCH RDW Plt Count Lymph % (Auto) [place] % (Auto) Lymph # (Auto) [place] # (Auto) Seg Neutrophils % Seg Neuts % (Manual) Lymphocytes % (Manual) Monocytes % (Manual) Basophils % (Manual) Seg Neutrophils # Seg Neutrophils # Man Lymphocytes # (Manual) Monocytes # (Manual) Eosinophils # (Manual) Basophils # (Manual) PT INR D-Dimer ABG pH POC ABG pCO2 POC ABG pO2 ABG pO2 ABG HCO3 ABG O2 Saturation ABG Base Excess ABG Hemoglobin ABG Oxyhemoglobin ABG Potassium ABG Glucose Oxyhemoglobin Carboxyhemoglobin Sodium Potassium Chloride Carbon Dioxide BUN Creatinine Glucose POC Glucose 122 H 122 H 116 H Calcium Ferritin Total Bilirubin Alkaline Phosphatase Lactate Dehydrogenase Total Creatine Kinase CK-MB (CK-2) Rel Index Troponin T C-Reactive Protein Total Protein Albumin Prealbumin LDL Cholesterol Direct HDL Cholesterol Arterial Blood Glucose Arterial Blood Ionized Calcium Urine WBC (Auto) 04/12/20 04/12/20 04/12/20 09:07 09:07 11:39 WBC 13.1 H RBC 3.59 L Hgb 9.5 L Hct 29.8 L MCV 83 L MCH 26 L RDW 16.6 H Plt Count 591 H Lymph % (Auto) [place] % (Auto) Lymph # (Auto) [place] # (Auto) Seg Neutrophils % Seg Neuts % (Manual) 86.0 H Lymphocytes % (Manual) 7.0 L Monocytes % (Manual) Basophils % (Manual) Seg Neutrophils # Seg Neutrophils # Man 11.3 H Lymphocytes # (Manual) 0.9 L Monocytes # (Manual) Eosinophils # (Manual) Basophils # (Manual) PT INR D-Dimer ABG pH POC ABG pCO2 POC ABG pO2 ABG pO2 ABG HCO3 ABG O2 Saturation ABG Base Excess ABG Hemoglobin ABG Oxyhemoglobin ABG Potassium ABG Glucose Oxyhemoglobin Carboxyhemoglobin Sodium Potassium Chloride Carbon Dioxide 36 H BUN Creatinine < 0.2 L Glucose 132 H POC Glucose 136 H Calcium Ferritin Total Bilirubin Alkaline Phosphatase Lactate Dehydrogenase Total Creatine Kinase CK-MB (CK-2) Rel Index Troponin T C-Reactive Protein Total Protein Albumin 2.7 L Prealbumin LDL Cholesterol Direct HDL Cholesterol Arterial Blood Glucose Arterial Blood Ionized Calcium Urine WBC (Auto) 04/12/20 04/12/20 04/13/20 18:13 23:07 05:45 WBC RBC Hgb Hct MCV MCH RDW Plt Count Lymph % (Auto) [place] % (Auto) Lymph # (Auto) [place] # (Auto) Seg Neutrophils % Seg Neuts % (Manual) Lymphocytes % (Manual) Monocytes % (Manual) Basophils % (Manual) Seg Neutrophils # Seg Neutrophils # Man Lymphocytes # (Manual) Monocytes # (Manual) Eosinophils # (Manual) Basophils # (Manual) PT INR D-Dimer ABG pH POC ABG pCO2 POC ABG pO2 ABG pO2 ABG HCO3 ABG O2 Saturation ABG Base Excess ABG Hemoglobin ABG Oxyhemoglobin ABG Potassium ABG Glucose Oxyhemoglobin Carboxyhemoglobin Sodium Potassium Chloride Carbon Dioxide BUN Creatinine Glucose POC Glucose 107 H 106 H 125 H Calcium Ferritin Total Bilirubin Alkaline Phosphatase Lactate Dehydrogenase Total Creatine Kinase CK-MB (CK-2) Rel Index Troponin T C-Reactive Protein Total Protein Albumin Prealbumin LDL Cholesterol Direct HDL Cholesterol Arterial Blood Glucose Arterial Blood Ionized Calcium Urine WBC (Auto) 04/13/20 04/13/20 04/13/20 11:18 17:56 23:33 WBC RBC Hgb Hct MCV MCH RDW Plt Count Lymph % (Auto) [place] % (Auto) Lymph # (Auto) [place] # (Auto) Seg Neutrophils % Seg Neuts % (Manual) Lymphocytes % (Manual) Monocytes % (Manual) Basophils % (Manual) Seg Neutrophils # Seg Neutrophils # Man Lymphocytes # (Manual) Monocytes # (Manual) Eosinophils # (Manual) Basophils # (Manual) PT INR D-Dimer ABG pH POC ABG pCO2 POC ABG pO2 ABG pO2 ABG HCO3 ABG O2 Saturation ABG Base Excess ABG Hemoglobin ABG Oxyhemoglobin ABG Potassium ABG Glucose Oxyhemoglobin Carboxyhemoglobin Sodium Potassium Chloride Carbon Dioxide BUN Creatinine Glucose POC Glucose 133 H 110 H 114 H Calcium Ferritin Total Bilirubin Alkaline Phosphatase Lactate Dehydrogenase Total Creatine Kinase CK-MB (CK-2) Rel Index Troponin T C-Reactive Protein Total Protein Albumin Prealbumin LDL Cholesterol Direct HDL Cholesterol Arterial Blood Glucose Arterial Blood Ionized Calcium Urine WBC (Auto) 04/14/20 04/14/20 04/14/20 05:58 11:45 17:48 WBC RBC Hgb Hct MCV MCH RDW Plt Count Lymph % (Auto) [place] % (Auto) Lymph # (Auto) [place] # (Auto) Seg Neutrophils % Seg Neuts % (Manual) Lymphocytes % (Manual) Monocytes % (Manual) Basophils % (Manual) Seg Neutrophils # Seg Neutrophils # Man Lymphocytes # (Manual) Monocytes # (Manual) Eosinophils # (Manual) Basophils # (Manual) PT INR D-Dimer ABG pH POC ABG pCO2 POC ABG pO2 ABG pO2 ABG HCO3 ABG O2 Saturation ABG Base Excess ABG Hemoglobin ABG Oxyhemoglobin ABG Potassium ABG Glucose Oxyhemoglobin Carboxyhemoglobin Sodium Potassium Chloride Carbon Dioxide BUN Creatinine Glucose POC Glucose 115 H 122 H 124 H Calcium Ferritin Total Bilirubin Alkaline Phosphatase Lactate Dehydrogenase Total Creatine Kinase CK-MB (CK-2) Rel Index Troponin T C-Reactive Protein Total Protein Albumin Prealbumin LDL Cholesterol Direct HDL Cholesterol Arterial Blood Glucose Arterial Blood Ionized Calcium Urine WBC (Auto) 04/15/20 04/15/20 04/15/20 00:11 05:38 11:31 WBC RBC Hgb Hct MCV MCH RDW Plt Count Lymph % (Auto) [place] % (Auto) Lymph # (Auto) [place] # (Auto) Seg Neutrophils % Seg Neuts % (Manual) Lymphocytes % (Manual) Monocytes % (Manual) Basophils % (Manual) Seg Neutrophils # Seg Neutrophils # Man Lymphocytes # (Manual) Monocytes # (Manual) Eosinophils # (Manual) Basophils # (Manual) PT INR D-Dimer ABG pH POC ABG pCO2 POC ABG pO2 ABG pO2 ABG HCO3 ABG O2 Saturation ABG Base Excess ABG Hemoglobin ABG Oxyhemoglobin ABG Potassium ABG Glucose Oxyhemoglobin Carboxyhemoglobin Sodium Potassium Chloride Carbon Dioxide BUN Creatinine Glucose POC Glucose 120 H 109 H 123 H Calcium Ferritin Total Bilirubin Alkaline Phosphatase Lactate Dehydrogenase Total Creatine Kinase CK-MB (CK-2) Rel Index Troponin T C-Reactive Protein Total Protein Albumin Prealbumin LDL Cholesterol Direct HDL Cholesterol Arterial Blood Glucose Arterial Blood Ionized Calcium Urine WBC (Auto) 04/15/20 04/16/20 04/16/20 17:35 06:00 11:29 WBC RBC Hgb Hct MCV MCH RDW Plt Count Lymph % (Auto) [place] % (Auto) Lymph # (Auto) [place] # (Auto) Seg Neutrophils % Seg Neuts % (Manual) Lymphocytes % (Manual) Monocytes % (Manual) Basophils % (Manual) Seg Neutrophils # Seg Neutrophils # Man Lymphocytes # (Manual) Monocytes # (Manual) Eosinophils # (Manual) Basophils # (Manual) PT INR D-Dimer ABG pH POC ABG pCO2 POC ABG pO2 ABG pO2 ABG HCO3 ABG O2 Saturation ABG Base Excess ABG Hemoglobin ABG Oxyhemoglobin ABG Potassium ABG Glucose Oxyhemoglobin Carboxyhemoglobin Sodium Potassium Chloride Carbon Dioxide BUN Creatinine Glucose POC Glucose 111 H 142 H 108 H Calcium Ferritin Total Bilirubin Alkaline Phosphatase Lactate Dehydrogenase Total Creatine Kinase CK-MB (CK-2) Rel Index Troponin T C-Reactive Protein Total Protein Albumin Prealbumin LDL Cholesterol Direct HDL Cholesterol Arterial Blood Glucose Arterial Blood Ionized Calcium Urine WBC (Auto) 04/17/20 04/17/20 04/17/20 05:09 06:53 06:53 WBC 14.2 H RBC Hgb 10.1 L Hct 31.5 L MCV MCH 27 L RDW 17.2 H Plt Count 643 H Lymph % (Auto) [place] % (Auto) Lymph # (Auto) [place] # (Auto) Seg Neutrophils % Seg Neuts % (Manual) Lymphocytes % (Manual) Monocytes % (Manual) Basophils % (Manual) Seg Neutrophils # Seg Neutrophils # Man Lymphocytes # (Manual) Monocytes # (Manual) Eosinophils # (Manual) Basophils # (Manual) PT INR D-Dimer ABG pH POC ABG pCO2 POC ABG pO2 ABG pO2 ABG HCO3 ABG O2 Saturation ABG Base Excess ABG Hemoglobin ABG Oxyhemoglobin ABG Potassium ABG Glucose Oxyhemoglobin Carboxyhemoglobin Sodium Potassium Chloride 97.7 L Carbon Dioxide 38 H BUN Creatinine < 0.2 L Glucose 126 H POC Glucose 131 H Calcium Ferritin Total Bilirubin Alkaline Phosphatase Lactate Dehydrogenase Total Creatine Kinase CK-MB (CK-2) Rel Index Troponin T C-Reactive Protein Total Protein Albumin Prealbumin LDL Cholesterol Direct HDL Cholesterol Arterial Blood Glucose Arterial Blood Ionized Calcium Urine WBC (Auto) 04/17/20 04/18/20 04/18/20 11:21 00:23 04:01 WBC 15.3 H RBC Hgb 10.1 L Hct 31.9 L MCV 82 L MCH 26 L RDW 17.2 H Plt Count 665 H Lymph % (Auto) 12.9 L [place] % (Auto) Lymph # (Auto) [place] # (Auto) 1.1 H Seg Neutrophils % 78.0 H Seg Neuts % (Manual) Lymphocytes % (Manual) Monocytes % (Manual) Basophils % (Manual) Seg Neutrophils # 11.9 H Seg Neutrophils # Man Lymphocytes # (Manual) Monocytes # (Manual) Eosinophils # (Manual) Basophils # (Manual) PT INR D-Dimer ABG pH POC ABG pCO2 POC ABG pO2 ABG pO2 ABG HCO3 ABG O2 Saturation ABG Base Excess ABG Hemoglobin ABG Oxyhemoglobin ABG Potassium ABG Glucose Oxyhemoglobin Carboxyhemoglobin Sodium Potassium Chloride Carbon Dioxide BUN Creatinine Glucose POC Glucose 140 H 125 H Calcium Ferritin Total Bilirubin Alkaline Phosphatase Lactate Dehydrogenase Total Creatine Kinase CK-MB (CK-2) Rel Index Troponin T C-Reactive Protein Total Protein Albumin Prealbumin LDL Cholesterol Direct HDL Cholesterol Arterial Blood Glucose Arterial Blood Ionized Calcium Urine WBC (Auto) 04/18/20 04/18/20 04/18/20 04:01 11:29 17:30 WBC RBC Hgb Hct MCV MCH RDW Plt Count Lymph % (Auto) [place] % (Auto) Lymph # (Auto) [place] # (Auto) Seg Neutrophils % Seg Neuts % (Manual) Lymphocytes % (Manual) Monocytes % (Manual) Basophils % (Manual) Seg Neutrophils # Seg Neutrophils # Man Lymphocytes # (Manual) Monocytes # (Manual) Eosinophils # (Manual) Basophils # (Manual) PT INR D-Dimer ABG pH POC ABG pCO2 POC ABG pO2 ABG pO2 ABG HCO3 ABG O2 Saturation ABG Base Excess ABG Hemoglobin ABG Oxyhemoglobin ABG Potassium ABG Glucose Oxyhemoglobin Carboxyhemoglobin Sodium Potassium Chloride 97.0 L Carbon Dioxide 38 H BUN Creatinine < 0.2 L Glucose 117 H POC Glucose 136 H 107 H Calcium Ferritin Total Bilirubin Alkaline Phosphatase Lactate Dehydrogenase Total Creatine Kinase CK-MB (CK-2) Rel Index Troponin T C-Reactive Protein Total Protein Albumin Prealbumin LDL Cholesterol Direct HDL Cholesterol Arterial Blood Glucose Arterial Blood Ionized Calcium Urine WBC (Auto) 04/18/20 04/19/20 04/19/20 23:19 06:51 06:51 WBC 12.2 H RBC Hgb 9.8 L Hct 31.1 L MCV 82 L MCH 26 L RDW 17.2 H Plt Count 549 H Lymph % (Auto) 6.5 L [place] % (Auto) Lymph # (Auto) 0.8 L [place] # (Auto) Seg Neutrophils % 86.7 H Seg Neuts % (Manual) Lymphocytes % (Manual) Monocytes % (Manual) Basophils % (Manual) Seg Neutrophils # 10.6 H Seg Neutrophils # Man Lymphocytes # (Manual) Monocytes # (Manual) Eosinophils # (Manual) Basophils # (Manual) PT INR D-Dimer ABG pH POC ABG pCO2 POC ABG pO2 ABG pO2 ABG HCO3 ABG O2 Saturation ABG Base Excess ABG Hemoglobin ABG Oxyhemoglobin ABG Potassium ABG Glucose Oxyhemoglobin Carboxyhemoglobin Sodium Potassium Chloride 97.8 L Carbon Dioxide 38 H BUN Creatinine < 0.2 L Glucose 123 H POC Glucose 127 H Calcium Ferritin Total Bilirubin Alkaline Phosphatase Lactate Dehydrogenase Total Creatine Kinase CK-MB (CK-2) Rel Index Troponin T C-Reactive Protein Total Protein Albumin Prealbumin LDL Cholesterol Direct HDL Cholesterol Arterial Blood Glucose Arterial Blood Ionized Calcium Urine WBC (Auto) 04/19/20 04/19/20 04/20/20 13:41 18:33 05:56 WBC RBC Hgb Hct MCV MCH RDW Plt Count Lymph % (Auto) [place] % (Auto) Lymph # (Auto) [place] # (Auto) Seg Neutrophils % Seg Neuts % (Manual) Lymphocytes % (Manual) Monocytes % (Manual) Basophils % (Manual) Seg Neutrophils # Seg Neutrophils # Man Lymphocytes # (Manual) Monocytes # (Manual) Eosinophils # (Manual) Basophils # (Manual) PT INR D-Dimer ABG pH POC ABG pCO2 POC ABG pO2 ABG pO2 ABG HCO3 ABG O2 Saturation ABG Base Excess ABG Hemoglobin ABG Oxyhemoglobin ABG Potassium ABG Glucose Oxyhemoglobin Carboxyhemoglobin Sodium Potassium Chloride Carbon Dioxide BUN Creatinine Glucose POC Glucose 116 H 124 H 130 H Calcium Ferritin Total Bilirubin Alkaline Phosphatase Lactate Dehydrogenase Total Creatine Kinase CK-MB (CK-2) Rel Index Troponin T C-Reactive Protein Total Protein Albumin Prealbumin LDL Cholesterol Direct HDL Cholesterol Arterial Blood Glucose Arterial Blood Ionized Calcium Urine WBC (Auto) 04/20/20 04/20/20 04/20/20 06:28 06:28 11:46 WBC RBC Hgb 10.2 L Hct 31.5 L MCV 82 L MCH 27 L RDW 17.1 H Plt Count 546 H Lymph % (Auto) 10.0 L [place] % (Auto) 9.8 H Lymph # (Auto) 1.1 L [place] # (Auto) 1.1 H Seg Neutrophils % 78.4 H Seg Neuts % (Manual) Lymphocytes % (Manual) Monocytes % (Manual) Basophils % (Manual) Seg Neutrophils # 8.5 H Seg Neutrophils # Man Lymphocytes # (Manual) Monocytes # (Manual) Eosinophils # (Manual) Basophils # (Manual) PT INR D-Dimer ABG pH POC ABG pCO2 POC ABG pO2 ABG pO2 ABG HCO3 ABG O2 Saturation ABG Base Excess ABG Hemoglobin ABG Oxyhemoglobin ABG Potassium ABG Glucose Oxyhemoglobin Carboxyhemoglobin Sodium Potassium Chloride 97.0 L Carbon Dioxide 38 H BUN Creatinine < 0.2 L Glucose 138 H POC Glucose 130 H Calcium Ferritin Total Bilirubin Alkaline Phosphatase Lactate Dehydrogenase Total Creatine Kinase CK-MB (CK-2) Rel Index Troponin T C-Reactive Protein Total Protein Albumin Prealbumin LDL Cholesterol Direct HDL Cholesterol Arterial Blood Glucose Arterial Blood Ionized Calcium Urine WBC (Auto) 04/20/20 04/21/20 04/21/20 23:31 05:55 05:55 WBC RBC Hgb 10.0 L Hct 31.1 L MCV 82 L MCH 26 L RDW 17.0 H Plt Count 535 H Lymph % (Auto) [place] % (Auto) 9.2 H Lymph # (Auto) 1.1 L [place] # (Auto) Seg Neutrophils % 75.4 H Seg Neuts % (Manual) Lymphocytes % (Manual) Monocytes % (Manual) Basophils % (Manual) Seg Neutrophils # Seg Neutrophils # Man Lymphocytes # (Manual) Monocytes # (Manual) Eosinophils # (Manual) Basophils # (Manual) PT INR D-Dimer ABG pH POC ABG pCO2 POC ABG pO2 ABG pO2 ABG HCO3 ABG O2 Saturation ABG Base Excess ABG Hemoglobin ABG Oxyhemoglobin ABG Potassium ABG Glucose Oxyhemoglobin Carboxyhemoglobin Sodium Potassium Chloride 95.0 L Carbon Dioxide 34 H BUN Creatinine < 0.2 L Glucose 125 H POC Glucose 116 H Calcium Ferritin Total Bilirubin Alkaline Phosphatase Lactate Dehydrogenase Total Creatine Kinase CK-MB (CK-2) Rel Index Troponin T C-Reactive Protein Total Protein Albumin Prealbumin LDL Cholesterol Direct HDL Cholesterol Arterial Blood Glucose Arterial Blood Ionized Calcium Urine WBC (Auto) 04/22/20 04/22/20 04/22/20 00:01 07:45 07:45 WBC RBC Hgb 10.0 L Hct 30.7 L MCV 81 L MCH 27 L RDW 17.1 H Plt Count 490 H Lymph % (Auto) [place] % (Auto) Lymph # (Auto) [place] # (Auto) Seg Neutrophils % Seg Neuts % (Manual) 75.0 H Lymphocytes % (Manual) 11.0 L Monocytes % (Manual) 9.0 H Basophils % (Manual) Seg Neutrophils # Seg Neutrophils # Man Lymphocytes # (Manual) 0.8 L Monocytes # (Manual) Eosinophils # (Manual) Basophils # (Manual) PT INR D-Dimer ABG pH POC ABG pCO2 POC ABG pO2 ABG pO2 ABG HCO3 ABG O2 Saturation ABG Base Excess ABG Hemoglobin ABG Oxyhemoglobin ABG Potassium ABG Glucose Oxyhemoglobin Carboxyhemoglobin Sodium Potassium Chloride 96.3 L Carbon Dioxide 40 H BUN Creatinine < 0.2 L Glucose 109 H POC Glucose 110 H Calcium Ferritin Total Bilirubin Alkaline Phosphatase Lactate Dehydrogenase Total Creatine Kinase CK-MB (CK-2) Rel Index Troponin T C-Reactive Protein Total Protein Albumin Prealbumin LDL Cholesterol Direct HDL Cholesterol Arterial Blood Glucose Arterial Blood Ionized Calcium Urine WBC (Auto) 04/23/20 04/23/20 04/23/20 04:28 04:28 04:28 WBC RBC 3.64 L Hgb 9.7 L Hct 29.4 L MCV 81 L MCH 27 L RDW 17.2 H Plt Count 527 H Lymph % (Auto) [place] % (Auto) 8.9 H Lymph # (Auto) [place] # (Auto) Seg Neutrophils % Seg Neuts % (Manual) Lymphocytes % (Manual) Monocytes % (Manual) Basophils % (Manual) Seg Neutrophils # Seg Neutrophils # Man Lymphocytes # (Manual) Monocytes # (Manual) Eosinophils # (Manual) Basophils # (Manual) PT INR D-Dimer ABG pH POC ABG pCO2 POC ABG pO2 ABG pO2 ABG HCO3 ABG O2 Saturation ABG Base Excess ABG Hemoglobin ABG Oxyhemoglobin ABG Potassium ABG Glucose Oxyhemoglobin Carboxyhemoglobin Sodium Potassium Chloride 96.4 L Carbon Dioxide 32 H D BUN Creatinine < 0.2 L Glucose 134 H POC Glucose Calcium Ferritin Total Bilirubin Alkaline Phosphatase Lactate Dehydrogenase Total Creatine Kinase CK-MB (CK-2) Rel Index Troponin T 0.151 H* C-Reactive Protein Total Protein Albumin Prealbumin LDL Cholesterol Direct HDL Cholesterol 29 L Arterial Blood Glucose Arterial Blood Ionized Calcium Urine WBC (Auto) 04/23/20 04/23/20 04/24/20 06:03 23:41 05:28 WBC RBC 3.56 L Hgb 9.5 L Hct 28.9 L MCV 81 L MCH 27 L RDW 17.4 H Plt Count 462 H Lymph % (Auto) [place] % (Auto) Lymph # (Auto) [place] # (Auto) Seg Neutrophils % Seg Neuts % (Manual) 80.0 H Lymphocytes % (Manual) Monocytes % (Manual) Basophils % (Manual) Seg Neutrophils # Seg Neutrophils # Man Lymphocytes # (Manual) Monocytes # (Manual) Eosinophils # (Manual) Basophils # (Manual) PT INR D-Dimer ABG pH POC ABG pCO2 POC ABG pO2 ABG pO2 ABG HCO3 ABG O2 Saturation ABG Base Excess ABG Hemoglobin ABG Oxyhemoglobin ABG Potassium ABG Glucose Oxyhemoglobin Carboxyhemoglobin Sodium Potassium Chloride Carbon Dioxide BUN Creatinine Glucose POC Glucose 132 H 117 H Calcium Ferritin Total Bilirubin Alkaline Phosphatase Lactate Dehydrogenase Total Creatine Kinase CK-MB (CK-2) Rel Index Troponin T C-Reactive Protein Total Protein Albumin Prealbumin LDL Cholesterol Direct HDL Cholesterol Arterial Blood Glucose Arterial Blood Ionized Calcium Urine WBC (Auto) 04/24/20 04/24/20 04/24/20 05:28 05:28 05:33 WBC RBC Hgb Hct MCV MCH RDW Plt Count Lymph % (Auto) [place] % (Auto) Lymph # (Auto) [place] # (Auto) Seg Neutrophils % Seg Neuts % (Manual) Lymphocytes % (Manual) Monocytes % (Manual) Basophils % (Manual) Seg Neutrophils # Seg Neutrophils # Man Lymphocytes # (Manual) Monocytes # (Manual) Eosinophils # (Manual) Basophils # (Manual) PT INR D-Dimer ABG pH POC ABG pCO2 POC ABG pO2 ABG pO2 ABG HCO3 ABG O2 Saturation ABG Base Excess ABG Hemoglobin ABG Oxyhemoglobin ABG Potassium ABG Glucose Oxyhemoglobin Carboxyhemoglobin Sodium Potassium Chloride 96.1 L Carbon Dioxide 40 H D BUN Creatinine < 0.2 L Glucose 115 H POC Glucose 109 H Calcium Ferritin Total Bilirubin Alkaline Phosphatase Lactate Dehydrogenase Total Creatine Kinase CK-MB (CK-2) Rel Index Troponin T 0.181 H* C-Reactive Protein Total Protein Albumin Prealbumin LDL Cholesterol Direct HDL Cholesterol Arterial Blood Glucose Arterial Blood Ionized Calcium Urine WBC (Auto) <LAURENCE CAMARGO - Last Filed: 04/25/20 15:10> 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 Respiratory Failure Severe Sepsis with Shock Bilateral Pneumonia (Possible aspiration) History of ALS on Trilogy Oropharyngeal Dysphagia PUI-COVID Acute toxic metabolic encephalopathy Elevated D-dimer Elevated troponin possibly type 2 ischemia - discharge planning still ongoing for home ventilator - continue care as below; - continue home meds re: chronic pain - continue daily SBT's as tolerated; t-piece trial attempts as tolerated (PSV if fails) - repeat CXR prn +/- bronchoscopy for mucus plugging / large volume atelectasis - continue psychoactive meds for anxiolysis - continue Robinul & scopolamine for secretion control - prn electrolytes and optimize K+ & Mg 2+ for best respiratory muscle function - wound care per RN/WCN - continue Scopolamine patch for secretion control - wean supplemental oxygen for target O2 sat's > 90% acutely - bronchodilators with pulmonary hygiene per RT - VAP bundle addressed - continue lung protective strategies - continue bronchodilators with pulmonary hygiene per RT - wean per pulmonary driven protocols otherwise - sedation prn for target RASS 0 to -1 - s/p empiric antiinfectives per ID rec's (Rocephin and Zithromax) - s/p COVID-19 isolation (Airborne & Contact) - s/p Dexamethasone - enteral nutrition at goal rate as tolerated - accuchecks with glycemic control per SSI (While critically ill target blood glucose of 140-180 mg/dL; avoid hypoglycemia) - avoid nephrotoxins, renally dose all medications - avoid benzodiazepine's, reduce the possibility of delirium - prn analgesia per CPOT score - Maintenance of sleep-wake cycle, avoid delirium - aspiration precautions - G.I. & VTE prophylaxis - PT/OT/ROM exercises - mobility protocols for pressure ulcer prophylaxis - Monitor hemodynamics closely - continue other care per attending / other consultants - discharge planning ongoing concurrently .... Re-evaluate in am & prn CONDITION: CRITICAL PROGNOSIS: GUARDED CODE STATUS: FULL CODE The high probability of a clinically significant, sudden or life-threatening deterioration of the [respiratory, cardiovascular & neurologic] system(s) required my full and direct attention, intervention and personal management. The aggregate critical care time was [32] minutes without overlap. Time includes spent on; [x] Data Review and interpretation [x] Patient assessment and monitoring of vital signs [x] Documentation [x] Medication orders and management Subjective Date of service: 04/23/20 Principal diagnosis: Ac on Ch Hypercapnic & hypoxemic Resp Failure; Severe Sepsis; Jamar PNA; ALS Interval history: Patient is seen today for: Acute on Chronic Hypercapnic & hypoxemic Respiratory Failure; Severe Sepsis with Shock; Bilateral Pneumonia (Possible aspiration); History of ALS on Trilogy; PUI-COVID; Acute toxic metabolic encephalopathy Seen and examined at bedside; 24hour events reviewed; nursing and respiratory care staff consulted; no adverse overnight events reported to me; resting in bed; remains on MVS; denies acute chest pains or palpitations; No N/V/F/C Objective Vital Signs - 12hr 04/23/20 04/23/20 04/23/20 09:00 10:00 10:14 Temperature Pulse Rate 93 H 104 H 99 H Respiratory 13 18 Rate Blood Pressure 107/75 111/77 111/77 O2 Sat by Pulse 100 Oximetry O2 Sat by Pulse Oximetry [ Assessment] 04/23/20 04/23/20 04/23/20 11:00 12:00 12:07 Temperature 98.7 F Pulse Rate 101 H 95 H 96 H Respiratory 16 21 Rate Blood Pressure 108/76 114/77 114/77 O2 Sat by Pulse 99 100 100 Oximetry O2 Sat by Pulse Oximetry [ Assessment] 04/23/20 04/23/20 04/23/20 13:00 14:00 15:00 Temperature Pulse Rate 103 H 95 H 107 H Respiratory 11 L 14 14 Rate Blood Pressure 109/77 112/75 112/75 O2 Sat by Pulse 100 100 83 L Oximetry O2 Sat by Pulse Oximetry [ Assessment] 04/23/20 04/23/20 04/23/20 16:00 16:24 17:00 Temperature 98.6 F Pulse Rate 93 H 89 90 Respiratory 18 13 Rate Blood Pressure 113/83 113/83 122/79 O2 Sat by Pulse 100 100 100 Oximetry O2 Sat by Pulse Oximetry [ Assessment] 04/23/20 04/23/20 17:47 20:28 Temperature Pulse Rate Respiratory 15 Rate Blood Pressure O2 Sat by Pulse Oximetry O2 Sat by Pulse 100 Oximetry [ Assessment] Constitutional: no acute distress, other (thin middle aged male with normal respiratory effort at rest on MVS) Eyes: non-icteric ENT: oropharynx moist, other (S/P Tracheostomy) Neck: supple, no lymphadenopathy, no JVD Effort: mildly labored Ascultation: Bilateral: clear, diminished breath sounds Percussion: Bilateral: not dull Cardiovascular: regular rate and rhythm, other (S1,S2, no murmurs) Gastrointestinal: normoactive bowel sounds, soft, non-tender, non-distended, other (+ distended but non tender suprapubis) Integumentary: normal, decubitus ulcer (sacral / gluteal) Extremities: no cyanosis, no edema, pulses normal, other (atrophic looking limbs) Neurologic: pupils equal and round, other (motor strength in extremities 1-2/5, awake, alert, mouths words to make needs known) Psychiatric: mood appropriate, affect normal CBC and BMP: 04/25/20 06:34 04/25/20 06:34 ABG, PT/INR, D-dimer: ABG ABG pH 7.371 (7.320-7.450) 03/08/20 12:34 POC ABG pCO2 63.1 mmHg (32.0-48.0) H 03/08/20 12:34 ABG pCO2 60.1 mm Hg 03/06/20 04:34 POC ABG pO2 90.5 mmHg (83-108) 03/08/20 12:34 ABG pO2 88.6 mm Hg (80.0-90.0) 03/06/20 04:34 POC ABG HCO3 35.7 03/08/20 12:34 ABG O2 Saturation 97.0 % (95.0-99.0) 03/06/20 04:34 PT/INR, D-dimer PT 15.6 Sec. (12.2-14.9) H 02/24/20 09:19 INR 1.21 (0.87-1.13) H 02/24/20 09:19 D-Dimer 1311.96 ng/mlDDU (0-234) H 02/24/20 09:19 Abnormal lab findings: Abnormal Labs 02/24/20 02/24/20 02/24/20 09:19 09:19 09:19 WBC 20.2 H RBC 5.05 H Hgb Hct MCV MCH RDW 15.3 H Plt Count Lymph % (Auto) [place] % (Auto) Lymph # (Auto) [place] # (Auto) Seg Neutrophils % Seg Neuts % (Manual) 86.0 H Lymphocytes % (Manual) 1.0 L Monocytes % (Manual) Basophils % (Manual) Seg Neutrophils # Seg Neutrophils # Man 17.4 H Lymphocytes # (Manual) 0.2 L Monocytes # (Manual) Eosinophils # (Manual) Basophils # (Manual) PT 15.6 H INR 1.21 H D-Dimer 1311.96 H ABG pH POC ABG pCO2 POC ABG pO2 ABG pO2 ABG HCO3 ABG O2 Saturation ABG Base Excess ABG Hemoglobin ABG Oxyhemoglobin ABG Potassium ABG Glucose Oxyhemoglobin Carboxyhemoglobin Sodium 135 L Potassium 3.2 L Chloride 92.2 L Carbon Dioxide BUN 6 L Creatinine < 0.2 L Glucose 124 H POC Glucose Calcium Ferritin Total Bilirubin 2.30 H Alkaline Phosphatase 132 H Lactate Dehydrogenase Total Creatine Kinase CK-MB (CK-2) Rel Index Troponin T 0.080 H C-Reactive Protein Total Protein Albumin 3.6 L Prealbumin LDL Cholesterol Direct 41 L HDL Cholesterol Arterial Blood Glucose Arterial Blood Ionized Calcium Urine WBC (Auto) 02/24/20 02/24/20 02/24/20 09:19 09:58 10:01 WBC RBC Hgb Hct MCV MCH RDW Plt Count Lymph % (Auto) [place] % (Auto) Lymph # (Auto) [place] # (Auto) Seg Neutrophils % Seg Neuts % (Manual) Lymphocytes % (Manual) Monocytes % (Manual) Basophils % (Manual) Seg Neutrophils # Seg Neutrophils # Man Lymphocytes # (Manual) Monocytes # (Manual) Eosinophils # (Manual) Basophils # (Manual) PT INR D-Dimer ABG pH 7.176 L* POC ABG pCO2 POC ABG pO2 ABG pO2 91.2 H ABG HCO3 ABG O2 Saturation ABG Base Excess -4.6 L ABG Hemoglobin ABG Oxyhemoglobin ABG Potassium ABG Glucose Oxyhemoglobin 92.6 L Carboxyhemoglobin Sodium Potassium Chloride Carbon Dioxide BUN Creatinine Glucose POC Glucose Calcium Ferritin 1715.0 H Total Bilirubin Alkaline Phosphatase Lactate Dehydrogenase 303 H Total Creatine Kinase CK-MB (CK-2) Rel Index Troponin T C-Reactive Protein 26.10 H Total Protein Albumin Prealbumin LDL Cholesterol Direct HDL Cholesterol Arterial Blood Glucose Arterial Blood Ionized Calcium Urine WBC (Auto) 02/24/20 02/24/20 02/24/20 11:52 13:45 19:35 WBC RBC Hgb Hct MCV MCH RDW Plt Count Lymph % (Auto) [place] % (Auto) Lymph # (Auto) [place] # (Auto) Seg Neutrophils % Seg Neuts % (Manual) Lymphocytes % (Manual) Monocytes % (Manual) Basophils % (Manual) Seg Neutrophils # Seg Neutrophils # Man Lymphocytes # (Manual) Monocytes # (Manual) Eosinophils # (Manual) Basophils # (Manual) PT INR D-Dimer ABG pH 7.051 L* 7.300 L POC ABG pCO2 POC ABG pO2 ABG pO2 94.7 H 75.1 L ABG HCO3 18.0 L ABG O2 Saturation 93.5 L ABG Base Excess -6.8 L -7.8 L ABG Hemoglobin 13.2 L 11.9 L ABG Oxyhemoglobin ABG Potassium ABG Glucose Oxyhemoglobin 91.0 L 92.7 L Carboxyhemoglobin Sodium Potassium Chloride Carbon Dioxide BUN Creatinine Glucose POC Glucose Calcium Ferritin Total Bilirubin Alkaline Phosphatase Lactate Dehydrogenase Total Creatine Kinase CK-MB (CK-2) Rel Index Troponin T 0.034 H D C-Reactive Protein Total Protein Albumin Prealbumin LDL Cholesterol Direct HDL Cholesterol Arterial Blood Glucose Arterial Blood Ionized Calcium Urine WBC (Auto) 02/25/20 02/25/20 02/25/20 04:00 04:00 12:26 WBC 22.9 H RBC Hgb Hct MCV 83 L MCH 27 L RDW Plt Count 468 H Lymph % (Auto) [place] % (Auto) Lymph # (Auto) [place] # (Auto) Seg Neutrophils % Seg Neuts % (Manual) 89.0 H Lymphocytes % (Manual) 7.0 L Monocytes % (Manual) Basophils % (Manual) Seg Neutrophils # Seg Neutrophils # Man 20.4 H Lymphocytes # (Manual) Monocytes # (Manual) Eosinophils # (Manual) Basophils # (Manual) PT INR D-Dimer ABG pH POC ABG pCO2 POC ABG pO2 ABG pO2 ABG HCO3 ABG O2 Saturation ABG Base Excess ABG Hemoglobin ABG Oxyhemoglobin ABG Potassium 2.6 L ABG Glucose 142 H Oxyhemoglobin Carboxyhemoglobin Sodium Potassium 3.2 L Chloride Carbon Dioxide 18 L BUN Creatinine 0.2 L Glucose 114 H POC Glucose Calcium Ferritin Total Bilirubin Alkaline Phosphatase Lactate Dehydrogenase Total Creatine Kinase CK-MB (CK-2) Rel Index Troponin T C-Reactive Protein Total Protein Albumin 3.5 L Prealbumin LDL Cholesterol Direct HDL Cholesterol Arterial Blood Glucose 142 H Arterial Blood Ionized Calcium Urine WBC (Auto) 02/26/20 02/26/20 02/26/20 15:58 17:00 23:43 WBC RBC Hgb Hct MCV MCH RDW Plt Count Lymph % (Auto) [place] % (Auto) Lymph # (Auto) [place] # (Auto) Seg Neutrophils % Seg Neuts % (Manual) Lymphocytes % (Manual) Monocytes % (Manual) Basophils % (Manual) Seg Neutrophils # Seg Neutrophils # Man Lymphocytes # (Manual) Monocytes # (Manual) Eosinophils # (Manual) Basophils # (Manual) PT INR D-Dimer ABG pH 7.502 H POC ABG pCO2 POC ABG pO2 213.6 H ABG pO2 ABG HCO3 ABG O2 Saturation ABG Base Excess ABG Hemoglobin ABG Oxyhemoglobin 99.2 H ABG Potassium 2.9 L ABG Glucose 160 H Oxyhemoglobin Carboxyhemoglobin 0.4 L Sodium Potassium Chloride Carbon Dioxide BUN Creatinine Glucose POC Glucose 189 H 120 H Calcium Ferritin Total Bilirubin Alkaline Phosphatase Lactate Dehydrogenase Total Creatine Kinase CK-MB (CK-2) Rel Index Troponin T C-Reactive Protein Total Protein Albumin Prealbumin LDL Cholesterol Direct HDL Cholesterol Arterial Blood Glucose 160 H Arterial Blood Ionized Calcium 4.5 L Urine WBC (Auto) 02/27/20 02/27/20 02/27/20 05:00 07:04 17:45 WBC RBC Hgb Hct MCV MCH RDW Plt Count Lymph % (Auto) [place] % (Auto) Lymph # (Auto) [place] # (Auto) Seg Neutrophils % Seg Neuts % (Manual) Lymphocytes % (Manual) Monocytes % (Manual) Basophils % (Manual) Seg Neutrophils # Seg Neutrophils # Man Lymphocytes # (Manual) Monocytes # (Manual) Eosinophils # (Manual) Basophils # (Manual) PT INR D-Dimer ABG pH 7.524 H POC ABG pCO2 POC ABG pO2 ABG pO2 ABG HCO3 ABG O2 Saturation ABG Base Excess ABG Hemoglobin ABG Oxyhemoglobin ABG Potassium 3.0 L ABG Glucose 143 H Oxyhemoglobin Carboxyhemoglobin Sodium Potassium Chloride Carbon Dioxide BUN Creatinine Glucose POC Glucose 154 H 175 H Calcium Ferritin Total Bilirubin Alkaline Phosphatase Lactate Dehydrogenase Total Creatine Kinase CK-MB (CK-2) Rel Index Troponin T C-Reactive Protein Total Protein Albumin Prealbumin LDL Cholesterol Direct HDL Cholesterol Arterial Blood Glucose 143 H Arterial Blood Ionized Calcium Urine WBC (Auto) 02/27/20 02/28/20 02/28/20 Unknown 00:21 04:15 WBC 18.7 H RBC Hgb Hct MCV MCH RDW Plt Count Lymph % (Auto) 8.7 L [place] % (Auto) Lymph # (Auto) [place] # (Auto) 1.2 H Seg Neutrophils % 84.6 H Seg Neuts % (Manual) Lymphocytes % (Manual) Monocytes % (Manual) Basophils % (Manual) Seg Neutrophils # 15.9 H Seg Neutrophils # Man Lymphocytes # (Manual) Monocytes # (Manual) Eosinophils # (Manual) Basophils # (Manual) PT INR D-Dimer ABG pH POC ABG pCO2 POC ABG pO2 ABG pO2 ABG HCO3 ABG O2 Saturation ABG Base Excess ABG Hemoglobin ABG Oxyhemoglobin ABG Potassium ABG Glucose Oxyhemoglobin Carboxyhemoglobin Sodium Potassium 2.9 L* Chloride Carbon Dioxide 33 H D BUN Creatinine < 0.2 L Glucose 157 H POC Glucose 134 H Calcium Ferritin Total Bilirubin Alkaline Phosphatase Lactate Dehydrogenase Total Creatine Kinase CK-MB (CK-2) Rel Index Troponin T C-Reactive Protein Total Protein Albumin Prealbumin LDL Cholesterol Direct HDL Cholesterol Arterial Blood Glucose Arterial Blood Ionized Calcium Urine WBC (Auto) 02/28/20 02/28/20 02/28/20 04:15 05:16 05:39 WBC RBC Hgb Hct MCV MCH RDW Plt Count Lymph % (Auto) [place] % (Auto) Lymph # (Auto) [place] # (Auto) Seg Neutrophils % Seg Neuts % (Manual) Lymphocytes % (Manual) Monocytes % (Manual) Basophils % (Manual) Seg Neutrophils # Seg Neutrophils # Man Lymphocytes # (Manual) Monocytes # (Manual) Eosinophils # (Manual) Basophils # (Manual) PT INR D-Dimer ABG pH POC ABG pCO2 POC ABG pO2 ABG pO2 142.9 H ABG HCO3 34.1 H ABG O2 Saturation ABG Base Excess 8.3 H ABG Hemoglobin ABG Oxyhemoglobin ABG Potassium ABG Glucose Oxyhemoglobin Carboxyhemoglobin Sodium 151 H Potassium Chloride Carbon Dioxide 32 H BUN Creatinine 0.2 L Glucose 167 H POC Glucose 138 H Calcium Ferritin Total Bilirubin Alkaline Phosphatase Lactate Dehydrogenase Total Creatine Kinase CK-MB (CK-2) Rel Index Troponin T C-Reactive Protein Total Protein Albumin Prealbumin LDL Cholesterol Direct HDL Cholesterol Arterial Blood Glucose Arterial Blood Ionized Calcium Urine WBC (Auto) 02/28/20 02/28/20 02/28/20 11:05 11:33 12:54 WBC RBC Hgb Hct MCV MCH RDW Plt Count Lymph % (Auto) [place] % (Auto) Lymph # (Auto) [place] # (Auto) Seg Neutrophils % Seg Neuts % (Manual) Lymphocytes % (Manual) Monocytes % (Manual) Basophils % (Manual) Seg Neutrophils # Seg Neutrophils # Man Lymphocytes # (Manual) Monocytes # (Manual) Eosinophils # (Manual) Basophils # (Manual) PT INR D-Dimer ABG pH POC ABG pCO2 POC ABG pO2 ABG pO2 ABG HCO3 ABG O2 Saturation ABG Base Excess ABG Hemoglobin ABG Oxyhemoglobin ABG Potassium ABG Glucose Oxyhemoglobin Carboxyhemoglobin Sodium Potassium Chloride Carbon Dioxide BUN Creatinine Glucose POC Glucose 160 H Calcium Ferritin Total Bilirubin Alkaline Phosphatase Lactate Dehydrogenase Total Creatine Kinase CK-MB (CK-2) Rel Index Troponin T C-Reactive Protein 4.70 H Total Protein Albumin Prealbumin 0.090 L LDL Cholesterol Direct HDL Cholesterol Arterial Blood Glucose Arterial Blood Ionized Calcium Urine WBC (Auto) 02/28/20 02/29/20 02/29/20 17:34 00:44 04:05 WBC 19.6 H RBC Hgb Hct MCV MCH 27 L RDW 15.4 H Plt Count Lymph % (Auto) [place] % (Auto) Lymph # (Auto) [place] # (Auto) Seg Neutrophils % Seg Neuts % (Manual) 86.0 H Lymphocytes % (Manual) 7.0 L Monocytes % (Manual) Basophils % (Manual) Seg Neutrophils # Seg Neutrophils # Man 16.9 H Lymphocytes # (Manual) Monocytes # (Manual) 1.2 H Eosinophils # (Manual) Basophils # (Manual) PT INR D-Dimer ABG pH POC ABG pCO2 POC ABG pO2 ABG pO2 ABG HCO3 ABG O2 Saturation ABG Base Excess ABG Hemoglobin ABG Oxyhemoglobin ABG Potassium ABG Glucose Oxyhemoglobin Carboxyhemoglobin Sodium Potassium Chloride Carbon Dioxide BUN Creatinine Glucose POC Glucose 136 H 156 H Calcium Ferritin Total Bilirubin Alkaline Phosphatase Lactate Dehydrogenase Total Creatine Kinase CK-MB (CK-2) Rel Index Troponin T C-Reactive Protein Total Protein Albumin Prealbumin LDL Cholesterol Direct HDL Cholesterol Arterial Blood Glucose Arterial Blood Ionized Calcium Urine WBC (Auto) 02/29/20 02/29/20 02/29/20 04:05 05:14 05:33 WBC RBC Hgb Hct MCV MCH RDW Plt Count Lymph % (Auto) [place] % (Auto) Lymph # (Auto) [place] # (Auto) Seg Neutrophils % Seg Neuts % (Manual) Lymphocytes % (Manual) Monocytes % (Manual) Basophils % (Manual) Seg Neutrophils # Seg Neutrophils # Man Lymphocytes # (Manual) Monocytes # (Manual) Eosinophils # (Manual) Basophils # (Manual) PT INR D-Dimer ABG pH POC ABG pCO2 54.3 H POC ABG pO2 124.8 H ABG pO2 ABG HCO3 ABG O2 Saturation ABG Base Excess ABG Hemoglobin ABG Oxyhemoglobin ABG Potassium ABG Glucose 185 H Oxyhemoglobin Carboxyhemoglobin Sodium 148 H Potassium Chloride Carbon Dioxide 33 H BUN Creatinine < 0.2 L Glucose 173 H POC Glucose 152 H Calcium Ferritin Total Bilirubin Alkaline Phosphatase Lactate Dehydrogenase Total Creatine Kinase CK-MB (CK-2) Rel Index Troponin T C-Reactive Protein Total Protein Albumin Prealbumin LDL Cholesterol Direct HDL Cholesterol Arterial Blood Glucose 185 H Arterial Blood Ionized Calcium Urine WBC (Auto) 11/08/1503/01/20 03/01/20 00:00 03:45 04:33 WBC 23.1 H RBC Hgb Hct MCV MCH 27 L RDW 15.3 H Plt Count Lymph % (Auto) [place] % (Auto) Lymph # (Auto) [place] # (Auto) Seg Neutrophils % Seg Neuts % (Manual) 92.0 H Lymphocytes % (Manual) 6.0 L Monocytes % (Manual) Basophils % (Manual) Seg Neutrophils # Seg Neutrophils # Man 21.3 H Lymphocytes # (Manual) Monocytes # (Manual) Eosinophils # (Manual) 0.5 H Basophils # (Manual) PT INR D-Dimer ABG pH 7.492 H POC ABG pCO2 POC ABG pO2 ABG pO2 157.1 H ABG HCO3 32.3 H ABG O2 Saturation ABG Base Excess 8.1 H ABG Hemoglobin 13.2 L ABG Oxyhemoglobin ABG Potassium ABG Glucose Oxyhemoglobin Carboxyhemoglobin Sodium Potassium Chloride Carbon Dioxide BUN Creatinine Glucose POC Glucose 109 H Calcium Ferritin Total Bilirubin Alkaline Phosphatase Lactate Dehydrogenase Total Creatine Kinase CK-MB (CK-2) Rel Index Troponin T C-Reactive Protein Total Protein Albumin Prealbumin LDL Cholesterol Direct HDL Cholesterol Arterial Blood Glucose Arterial Blood Ionized Calcium Urine WBC (Auto) 03/01/20 03/01/20 03/01/20 04:33 05:29 12:32 WBC RBC Hgb Hct MCV MCH RDW Plt Count Lymph % (Auto) [place] % (Auto) Lymph # (Auto) [place] # (Auto) Seg Neutrophils % Seg Neuts % (Manual) Lymphocytes % (Manual) Monocytes % (Manual) Basophils % (Manual) Seg Neutrophils # Seg Neutrophils # Man Lymphocytes # (Manual) Monocytes # (Manual) Eosinophils # (Manual) Basophils # (Manual) PT INR D-Dimer ABG pH POC ABG pCO2 POC ABG pO2 ABG pO2 ABG HCO3 ABG O2 Saturation ABG Base Excess ABG Hemoglobin ABG Oxyhemoglobin ABG Potassium ABG Glucose Oxyhemoglobin Carboxyhemoglobin Sodium 146 H Potassium Chloride Carbon Dioxide 32 H BUN Creatinine < 0.2 L Glucose 120 H POC Glucose 120 H 128 H Calcium Ferritin Total Bilirubin Alkaline Phosphatase Lactate Dehydrogenase Total Creatine Kinase CK-MB (CK-2) Rel Index Troponin T C-Reactive Protein Total Protein Albumin Prealbumin LDL Cholesterol Direct HDL Cholesterol Arterial Blood Glucose Arterial Blood Ionized Calcium Urine WBC (Auto) 03/01/20 03/01/20 03/02/20 17:38 23:46 06:13 WBC RBC Hgb Hct MCV MCH RDW Plt Count Lymph % (Auto) [place] % (Auto) Lymph # (Auto) [place] # (Auto) Seg Neutrophils % Seg Neuts % (Manual) Lymphocytes % (Manual) Monocytes % (Manual) Basophils % (Manual) Seg Neutrophils # Seg Neutrophils # Man Lymphocytes # (Manual) Monocytes # (Manual) Eosinophils # (Manual) Basophils # (Manual) PT INR D-Dimer ABG pH POC ABG pCO2 POC ABG pO2 ABG pO2 ABG HCO3 ABG O2 Saturation ABG Base Excess ABG Hemoglobin ABG Oxyhemoglobin ABG Potassium ABG Glucose Oxyhemoglobin Carboxyhemoglobin Sodium Potassium Chloride Carbon Dioxide BUN Creatinine Glucose POC Glucose 114 H 121 H 120 H Calcium Ferritin Total Bilirubin Alkaline Phosphatase Lactate Dehydrogenase Total Creatine Kinase CK-MB (CK-2) Rel Index Troponin T C-Reactive Protein Total Protein Albumin Prealbumin LDL Cholesterol Direct HDL Cholesterol Arterial Blood Glucose Arterial Blood Ionized Calcium Urine WBC (Auto) 03/02/20 03/02/20 03/03/20 09:47 09:47 10:21 WBC 23.6 H RBC Hgb Hct MCV MCH RDW 15.3 H Plt Count 494 H Lymph % (Auto) [place] % (Auto) Lymph # (Auto) [place] # (Auto) Seg Neutrophils % Seg Neuts % (Manual) 85.0 H Lymphocytes % (Manual) 6.0 L Monocytes % (Manual) Basophils % (Manual) Seg Neutrophils # Seg Neutrophils # Man 20.1 H Lymphocytes # (Manual) Monocytes # (Manual) 1.7 H Eosinophils # (Manual) Basophils # (Manual) PT INR D-Dimer ABG pH POC ABG pCO2 POC ABG pO2 ABG pO2 ABG HCO3 ABG O2 Saturation ABG Base Excess ABG Hemoglobin ABG Oxyhemoglobin ABG Potassium 3.3 L ABG Glucose 158 H Oxyhemoglobin Carboxyhemoglobin Sodium Potassium Chloride Carbon Dioxide BUN Creatinine < 0.2 L Glucose 177 H POC Glucose Calcium Ferritin Total Bilirubin Alkaline Phosphatase Lactate Dehydrogenase Total Creatine Kinase CK-MB (CK-2) Rel Index Troponin T C-Reactive Protein Total Protein Albumin Prealbumin LDL Cholesterol Direct HDL Cholesterol Arterial Blood Glucose 158 H Arterial Blood Ionized Calcium Urine WBC (Auto) 03/03/20 03/04/20 03/04/20 21:30 00:00 12:23 WBC RBC Hgb Hct MCV MCH RDW Plt Count Lymph % (Auto) [place] % (Auto) Lymph # (Auto) [place] # (Auto) Seg Neutrophils % Seg Neuts % (Manual) Lymphocytes % (Manual) Monocytes % (Manual) Basophils % (Manual) Seg Neutrophils # Seg Neutrophils # Man Lymphocytes # (Manual) Monocytes # (Manual) Eosinophils # (Manual) Basophils # (Manual) PT INR D-Dimer ABG pH 7.328 L POC ABG pCO2 POC ABG pO2 ABG pO2 68.4 L ABG HCO3 35.0 H ABG O2 Saturation 93.9 L ABG Base Excess 6.8 H ABG Hemoglobin 12.7 L ABG Oxyhemoglobin ABG Potassium ABG Glucose Oxyhemoglobin 91.9 L Carboxyhemoglobin Sodium Potassium Chloride Carbon Dioxide BUN Creatinine Glucose POC Glucose 187 H 163 H Calcium Ferritin Total Bilirubin Alkaline Phosphatase Lactate Dehydrogenase Total Creatine Kinase CK-MB (CK-2) Rel Index Troponin T C-Reactive Protein Total Protein Albumin Prealbumin LDL Cholesterol Direct HDL Cholesterol Arterial Blood Glucose Arterial Blood Ionized Calcium Urine WBC (Auto) 03/04/20 03/04/20 03/05/20 18:15 21:30 06:02 WBC RBC Hgb Hct MCV MCH RDW Plt Count Lymph % (Auto) [place] % (Auto) Lymph # (Auto) [place] # (Auto) Seg Neutrophils % Seg Neuts % (Manual) Lymphocytes % (Manual) Monocytes % (Manual) Basophils % (Manual) Seg Neutrophils # Seg Neutrophils # Man Lymphocytes # (Manual) Monocytes # (Manual) Eosinophils # (Manual) Basophils # (Manual) PT INR D-Dimer ABG pH 7.297 L POC ABG pCO2 POC ABG pO2 ABG pO2 ABG HCO3 41.0 H ABG O2 Saturation ABG Base Excess 11.0 H ABG Hemoglobin 13.1 L ABG Oxyhemoglobin ABG Potassium ABG Glucose Oxyhemoglobin 94.5 L Carboxyhemoglobin Sodium Potassium Chloride Carbon Dioxide BUN Creatinine Glucose POC Glucose 192 H 127 H Calcium Ferritin Total Bilirubin Alkaline Phosphatase Lactate Dehydrogenase Total Creatine Kinase CK-MB (CK-2) Rel Index Troponin T C-Reactive Protein Total Protein Albumin Prealbumin LDL Cholesterol Direct HDL Cholesterol Arterial Blood Glucose Arterial Blood Ionized Calcium Urine WBC (Auto) 03/05/20 03/05/20 03/06/20 12:09 16:42 00:24 WBC RBC Hgb Hct MCV MCH RDW Plt Count Lymph % (Auto) [place] % (Auto) Lymph # (Auto) [place] # (Auto) Seg Neutrophils % Seg Neuts % (Manual) Lymphocytes % (Manual) Monocytes % (Manual) Basophils % (Manual) Seg Neutrophils # Seg Neutrophils # Man Lymphocytes # (Manual) Monocytes # (Manual) Eosinophils # (Manual) Basophils # (Manual) PT INR D-Dimer ABG pH POC ABG pCO2 POC ABG pO2 ABG pO2 ABG HCO3 ABG O2 Saturation ABG Base Excess ABG Hemoglobin ABG Oxyhemoglobin ABG Potassium ABG Glucose Oxyhemoglobin Carboxyhemoglobin Sodium Potassium Chloride Carbon Dioxide BUN Creatinine Glucose POC Glucose 147 H 114 H 134 H Calcium Ferritin Total Bilirubin Alkaline Phosphatase Lactate Dehydrogenase Total Creatine Kinase CK-MB (CK-2) Rel Index Troponin T C-Reactive Protein Total Protein Albumin Prealbumin LDL Cholesterol Direct HDL Cholesterol Arterial Blood Glucose Arterial Blood Ionized Calcium Urine WBC (Auto) 03/06/20 03/06/20 03/06/20 04:34 05:53 06:08 WBC 25.4 H RBC Hgb 10.5 L Hct 32.7 L MCV MCH 27 L RDW 15.3 H Plt Count 634 H Lymph % (Auto) [place] % (Auto) Lymph # (Auto) [place] # (Auto) Seg Neutrophils % Seg Neuts % (Manual) 88.0 H Lymphocytes % (Manual) 2.0 L Monocytes % (Manual) 8.0 H Basophils % (Manual) Seg Neutrophils # Seg Neutrophils # Man 22.4 H Lymphocytes # (Manual) 0.5 L Monocytes # (Manual) 2.0 H Eosinophils # (Manual) Basophils # (Manual) PT INR D-Dimer ABG pH POC ABG pCO2 POC ABG pO2 ABG pO2 ABG HCO3 37.9 H ABG O2 Saturation ABG Base Excess 11.4 H ABG Hemoglobin 10.6 L ABG Oxyhemoglobin ABG Potassium ABG Glucose Oxyhemoglobin 94.7 L Carboxyhemoglobin Sodium Potassium Chloride Carbon Dioxide BUN Creatinine Glucose POC Glucose 135 H Calcium Ferritin Total Bilirubin Alkaline Phosphatase Lactate Dehydrogenase Total Creatine Kinase CK-MB (CK-2) Rel Index Troponin T C-Reactive Protein Total Protein Albumin Prealbumin LDL Cholesterol Direct HDL Cholesterol Arterial Blood Glucose Arterial Blood Ionized Calcium Urine WBC (Auto) 03/06/20 03/06/20 03/06/20 06:08 12:19 19:10 WBC RBC Hgb Hct MCV MCH RDW Plt Count Lymph % (Auto) [place] % (Auto) Lymph # (Auto) [place] # (Auto) Seg Neutrophils % Seg Neuts % (Manual) Lymphocytes % (Manual) Monocytes % (Manual) Basophils % (Manual) Seg Neutrophils # Seg Neutrophils # Man Lymphocytes # (Manual) Monocytes # (Manual) Eosinophils # (Manual) Basophils # (Manual) PT INR D-Dimer ABG pH POC ABG pCO2 POC ABG pO2 ABG pO2 ABG HCO3 ABG O2 Saturation ABG Base Excess ABG Hemoglobin ABG Oxyhemoglobin ABG Potassium ABG Glucose Oxyhemoglobin Carboxyhemoglobin Sodium 150 H D Potassium Chloride Carbon Dioxide 39 H D BUN 23 H Creatinine < 0.2 L Glucose 144 H POC Glucose 169 H 152 H Calcium Ferritin Total Bilirubin Alkaline Phosphatase Lactate Dehydrogenase Total Creatine Kinase CK-MB (CK-2) Rel Index Troponin T C-Reactive Protein Total Protein Albumin 3.3 L Prealbumin LDL Cholesterol Direct HDL Cholesterol Arterial Blood Glucose Arterial Blood Ionized Calcium Urine WBC (Auto) 03/06/20 03/07/20 03/07/20 23:58 04:25 04:25 WBC 22.1 H RBC Hgb 10.9 L Hct 32.9 L MCV MCH RDW 15.5 H Plt Count 739 H Lymph % (Auto) 7.8 L [place] % (Auto) Lymph # (Auto) [place] # (Auto) 1.3 H Seg Neutrophils % 85.5 H Seg Neuts % (Manual) Lymphocytes % (Manual) Monocytes % (Manual) Basophils % (Manual) Seg Neutrophils # 18.9 H Seg Neutrophils # Man Lymphocytes # (Manual) Monocytes # (Manual) Eosinophils # (Manual) Basophils # (Manual) PT INR D-Dimer ABG pH POC ABG pCO2 POC ABG pO2 ABG pO2 ABG HCO3 ABG O2 Saturation ABG Base Excess ABG Hemoglobin ABG Oxyhemoglobin ABG Potassium ABG Glucose Oxyhemoglobin Carboxyhemoglobin Sodium 146 H Potassium Chloride Carbon Dioxide 37 H BUN Creatinine < 0.2 L Glucose 118 H POC Glucose 111 H Calcium Ferritin Total Bilirubin Alkaline Phosphatase Lactate Dehydrogenase Total Creatine Kinase CK-MB (CK-2) Rel Index Troponin T C-Reactive Protein Total Protein Albumin 3.7 L Prealbumin LDL Cholesterol Direct HDL Cholesterol Arterial Blood Glucose Arterial Blood Ionized Calcium Urine WBC (Auto) 03/07/20 03/07/20 03/07/20 05:20 17:45 23:32 WBC RBC Hgb Hct MCV MCH RDW Plt Count Lymph % (Auto) [place] % (Auto) Lymph # (Auto) [place] # (Auto) Seg Neutrophils % Seg Neuts % (Manual) Lymphocytes % (Manual) Monocytes % (Manual) Basophils % (Manual) Seg Neutrophils # Seg Neutrophils # Man Lymphocytes # (Manual) Monocytes # (Manual) Eosinophils # (Manual) Basophils # (Manual) PT INR D-Dimer ABG pH POC ABG pCO2 POC ABG pO2 ABG pO2 ABG HCO3 ABG O2 Saturation ABG Base Excess ABG Hemoglobin ABG Oxyhemoglobin ABG Potassium ABG Glucose Oxyhemoglobin Carboxyhemoglobin Sodium Potassium Chloride Carbon Dioxide BUN Creatinine Glucose POC Glucose 113 H 124 H 210 H Calcium Ferritin Total Bilirubin Alkaline Phosphatase Lactate Dehydrogenase Total Creatine Kinase CK-MB (CK-2) Rel Index Troponin T C-Reactive Protein Total Protein Albumin Prealbumin LDL Cholesterol Direct HDL Cholesterol Arterial Blood Glucose Arterial Blood Ionized Calcium Urine WBC (Auto) 03/08/20 03/08/20 03/08/20 05:35 06:43 06:43 WBC 28.9 H RBC 3.53 L Hgb 9.7 L Hct 30.3 L MCV MCH RDW 15.6 H Plt Count 578 H Lymph % (Auto) [place] % (Auto) Lymph # (Auto) [place] # (Auto) Seg Neutrophils % Seg Neuts % (Manual) 93.0 H Lymphocytes % (Manual) 4.0 L Monocytes % (Manual) Basophils % (Manual) Seg Neutrophils # Seg Neutrophils # Man 26.9 H Lymphocytes # (Manual) Monocytes # (Manual) Eosinophils # (Manual) Basophils # (Manual) PT INR D-Dimer ABG pH POC ABG pCO2 POC ABG pO2 ABG pO2 ABG HCO3 ABG O2 Saturation ABG Base Excess ABG Hemoglobin ABG Oxyhemoglobin ABG Potassium ABG Glucose Oxyhemoglobin Carboxyhemoglobin Sodium 146 H Potassium Chloride Carbon Dioxide 35 H BUN 34 H Creatinine 0.3 L D Glucose 125 H POC Glucose 147 H Calcium Ferritin Total Bilirubin Alkaline Phosphatase Lactate Dehydrogenase Total Creatine Kinase CK-MB (CK-2) Rel Index Troponin T C-Reactive Protein Total Protein 5.9 L Albumin 3.2 L Prealbumin LDL Cholesterol Direct HDL Cholesterol Arterial Blood Glucose Arterial Blood Ionized Calcium Urine WBC (Auto) 03/08/20 03/08/20 03/08/20 08:57 11:14 12:34 WBC RBC Hgb Hct MCV MCH RDW Plt Count Lymph % (Auto) [place] % (Auto) Lymph # (Auto) [place] # (Auto) Seg Neutrophils % Seg Neuts % (Manual) Lymphocytes % (Manual) Monocytes % (Manual) Basophils % (Manual) Seg Neutrophils # Seg Neutrophils # Man Lymphocytes # (Manual) Monocytes # (Manual) Eosinophils # (Manual) Basophils # (Manual) PT INR D-Dimer ABG pH POC ABG pCO2 63.1 H POC ABG pO2 ABG pO2 ABG HCO3 ABG O2 Saturation ABG Base Excess ABG Hemoglobin 10.9 L ABG Oxyhemoglobin ABG Potassium ABG Glucose 176 H Oxyhemoglobin Carboxyhemoglobin Sodium Potassium Chloride Carbon Dioxide BUN Creatinine Glucose POC Glucose 171 H Calcium Ferritin Total Bilirubin Alkaline Phosphatase Lactate Dehydrogenase Total Creatine Kinase CK-MB (CK-2) Rel Index Troponin T C-Reactive Protein Total Protein Albumin Prealbumin LDL Cholesterol Direct HDL Cholesterol Arterial Blood Glucose 176 H Arterial Blood Ionized Calcium 4.5 L Urine WBC (Auto) 10.0 H 03/08/20 03/08/20 03/09/20 18:02 23:43 05:49 WBC RBC Hgb Hct MCV MCH RDW Plt Count Lymph % (Auto) [place] % (Auto) Lymph # (Auto) [place] # (Auto) Seg Neutrophils % Seg Neuts % (Manual) Lymphocytes % (Manual) Monocytes % (Manual) Basophils % (Manual) Seg Neutrophils # Seg Neutrophils # Man Lymphocytes # (Manual) Monocytes # (Manual) Eosinophils # (Manual) Basophils # (Manual) PT INR D-Dimer ABG pH POC ABG pCO2 POC ABG pO2 ABG pO2 ABG HCO3 ABG O2 Saturation ABG Base Excess ABG Hemoglobin ABG Oxyhemoglobin ABG Potassium ABG Glucose Oxyhemoglobin Carboxyhemoglobin Sodium Potassium Chloride Carbon Dioxide BUN Creatinine Glucose POC Glucose 157 H 134 H 163 H Calcium Ferritin Total Bilirubin Alkaline Phosphatase Lactate Dehydrogenase Total Creatine Kinase CK-MB (CK-2) Rel Index Troponin T C-Reactive Protein Total Protein Albumin Prealbumin LDL Cholesterol Direct HDL Cholesterol Arterial Blood Glucose Arterial Blood Ionized Calcium Urine WBC (Auto) 03/09/20 03/09/20 03/09/20 08:35 08:35 12:11 WBC 23.4 H RBC 3.36 L Hgb 9.3 L Hct 28.8 L MCV MCH RDW 15.9 H Plt Count 521 H Lymph % (Auto) [place] % (Auto) Lymph # (Auto) [place] # (Auto) Seg Neutrophils % Seg Neuts % (Manual) 87.0 H Lymphocytes % (Manual) 4.0 L Monocytes % (Manual) 9.0 H Basophils % (Manual) Seg Neutrophils # Seg Neutrophils # Man 20.4 H Lymphocytes # (Manual) 0.9 L Monocytes # (Manual) 2.1 H Eosinophils # (Manual) Basophils # (Manual) PT INR D-Dimer ABG pH POC ABG pCO2 POC ABG pO2 ABG pO2 ABG HCO3 ABG O2 Saturation ABG Base Excess ABG Hemoglobin ABG Oxyhemoglobin ABG Potassium ABG Glucose Oxyhemoglobin Carboxyhemoglobin Sodium 147 H Potassium Chloride Carbon Dioxide 37 H BUN 63 H Creatinine Glucose 154 H POC Glucose 128 H Calcium Ferritin Total Bilirubin Alkaline Phosphatase Lactate Dehydrogenase Total Creatine Kinase CK-MB (CK-2) Rel Index Troponin T C-Reactive Protein Total Protein Albumin Prealbumin LDL Cholesterol Direct HDL Cholesterol Arterial Blood Glucose Arterial Blood Ionized Calcium Urine WBC (Auto) 03/09/20 03/10/20 03/10/20 17:51 00:25 05:41 WBC RBC Hgb Hct MCV MCH RDW Plt Count Lymph % (Auto) [place] % (Auto) Lymph # (Auto) [place] # (Auto) Seg Neutrophils % Seg Neuts % (Manual) Lymphocytes % (Manual) Monocytes % (Manual) Basophils % (Manual) Seg Neutrophils # Seg Neutrophils # Man Lymphocytes # (Manual) Monocytes # (Manual) Eosinophils # (Manual) Basophils # (Manual) PT INR D-Dimer ABG pH POC ABG pCO2 POC ABG pO2 ABG pO2 ABG HCO3 ABG O2 Saturation ABG Base Excess ABG Hemoglobin ABG Oxyhemoglobin ABG Potassium ABG Glucose Oxyhemoglobin Carboxyhemoglobin Sodium Potassium Chloride Carbon Dioxide BUN Creatinine Glucose POC Glucose 127 H 128 H 153 H Calcium Ferritin Total Bilirubin Alkaline Phosphatase Lactate Dehydrogenase Total Creatine Kinase CK-MB (CK-2) Rel Index Troponin T C-Reactive Protein Total Protein Albumin Prealbumin LDL Cholesterol Direct HDL Cholesterol Arterial Blood Glucose Arterial Blood Ionized Calcium Urine WBC (Auto) 03/10/20 03/10/20 03/10/20 06:14 06:14 12:02 WBC 18.3 H RBC 3.45 L Hgb 9.5 L Hct 29.5 L MCV MCH RDW 16.1 H Plt Count 494 H Lymph % (Auto) [place] % (Auto) Lymph # (Auto) [place] # (Auto) Seg Neutrophils % Seg Neuts % (Manual) 95.0 H Lymphocytes % (Manual) 1.0 L Monocytes % (Manual) Basophils % (Manual) Seg Neutrophils # Seg Neutrophils # Man 17.4 H Lymphocytes # (Manual) 0.2 L Monocytes # (Manual) Eosinophils # (Manual) Basophils # (Manual) PT INR D-Dimer ABG pH POC ABG pCO2 POC ABG pO2 ABG pO2 ABG HCO3 ABG O2 Saturation ABG Base Excess ABG Hemoglobin ABG Oxyhemoglobin ABG Potassium ABG Glucose Oxyhemoglobin Carboxyhemoglobin Sodium 149 H Potassium Chloride Carbon Dioxide 35 H BUN 34 H Creatinine 0.2 L D Glucose 177 H POC Glucose 151 H Calcium Ferritin Total Bilirubin Alkaline Phosphatase Lactate Dehydrogenase Total Creatine Kinase CK-MB (CK-2) Rel Index Troponin T C-Reactive Protein Total Protein Albumin Prealbumin LDL Cholesterol Direct HDL Cholesterol Arterial Blood Glucose Arterial Blood Ionized Calcium Urine WBC (Auto) 03/10/20 03/10/20 03/11/20 17:41 23:53 05:02 WBC RBC Hgb Hct MCV MCH RDW Plt Count Lymph % (Auto) [place] % (Auto) Lymph # (Auto) [place] # (Auto) Seg Neutrophils % Seg Neuts % (Manual) Lymphocytes % (Manual) Monocytes % (Manual) Basophils % (Manual) Seg Neutrophils # Seg Neutrophils # Man Lymphocytes # (Manual) Monocytes # (Manual) Eosinophils # (Manual) Basophils # (Manual) PT INR D-Dimer ABG pH POC ABG pCO2 POC ABG pO2 ABG pO2 ABG HCO3 ABG O2 Saturation ABG Base Excess ABG Hemoglobin ABG Oxyhemoglobin ABG Potassium ABG Glucose Oxyhemoglobin Carboxyhemoglobin Sodium Potassium Chloride Carbon Dioxide BUN Creatinine Glucose POC Glucose 168 H 142 H 146 H Calcium Ferritin Total Bilirubin Alkaline Phosphatase Lactate Dehydrogenase Total Creatine Kinase CK-MB (CK-2) Rel Index Troponin T C-Reactive Protein Total Protein Albumin Prealbumin LDL Cholesterol Direct HDL Cholesterol Arterial Blood Glucose Arterial Blood Ionized Calcium Urine WBC (Auto) 03/11/20 03/11/20 03/11/20 11:30 14:01 14:01 WBC 19.7 H RBC 3.04 L Hgb 8.7 L Hct 25.8 L MCV MCH RDW 15.6 H Plt Count Lymph % (Auto) [place] % (Auto) Lymph # (Auto) [place] # (Auto) Seg Neutrophils % Seg Neuts % (Manual) Lymphocytes % (Manual) Monocytes % (Manual) Basophils % (Manual) Seg Neutrophils # Seg Neutrophils # Man Lymphocytes # (Manual) Monocytes # (Manual) Eosinophils # (Manual) Basophils # (Manual) PT INR D-Dimer ABG pH POC ABG pCO2 POC ABG pO2 ABG pO2 ABG HCO3 ABG O2 Saturation ABG Base Excess ABG Hemoglobin ABG Oxyhemoglobin ABG Potassium ABG Glucose Oxyhemoglobin Carboxyhemoglobin Sodium 151 H Potassium Chloride Carbon Dioxide 37 H BUN Creatinine < 0.2 L Glucose 171 H POC Glucose 248 H Calcium Ferritin Total Bilirubin Alkaline Phosphatase Lactate Dehydrogenase Total Creatine Kinase CK-MB (CK-2) Rel Index Troponin T C-Reactive Protein Total Protein Albumin Prealbumin LDL Cholesterol Direct HDL Cholesterol Arterial Blood Glucose Arterial Blood Ionized Calcium Urine WBC (Auto) 03/11/20 03/11/20 03/12/20 17:09 23:52 04:39 WBC 19.9 H RBC 3.16 L Hgb 8.9 L Hct 27.5 L MCV MCH RDW 15.7 H Plt Count Lymph % (Auto) 6.8 L [place] % (Auto) Lymph # (Auto) [place] # (Auto) 1.2 H Seg Neutrophils % 86.0 H Seg Neuts % (Manual) Lymphocytes % (Manual) Monocytes % (Manual) Basophils % (Manual) Seg Neutrophils # 17.1 H Seg Neutrophils # Man Lymphocytes # (Manual) Monocytes # (Manual) Eosinophils # (Manual) Basophils # (Manual) PT INR D-Dimer ABG pH POC ABG pCO2 POC ABG pO2 ABG pO2 ABG HCO3 ABG O2 Saturation ABG Base Excess ABG Hemoglobin ABG Oxyhemoglobin ABG Potassium ABG Glucose Oxyhemoglobin Carboxyhemoglobin Sodium Potassium Chloride Carbon Dioxide BUN Creatinine Glucose POC Glucose 124 H 131 H Calcium Ferritin Total Bilirubin Alkaline Phosphatase Lactate Dehydrogenase Total Creatine Kinase CK-MB (CK-2) Rel Index Troponin T C-Reactive Protein Total Protein Albumin Prealbumin LDL Cholesterol Direct HDL Cholesterol Arterial Blood Glucose Arterial Blood Ionized Calcium Urine WBC (Auto) 03/12/20 03/12/20 03/12/20 04:39 05:28 11:34 WBC RBC Hgb Hct MCV MCH RDW Plt Count Lymph % (Auto) [place] % (Auto) Lymph # (Auto) [place] # (Auto) Seg Neutrophils % Seg Neuts % (Manual) Lymphocytes % (Manual) Monocytes % (Manual) Basophils % (Manual) Seg Neutrophils # Seg Neutrophils # Man Lymphocytes # (Manual) Monocytes # (Manual) Eosinophils # (Manual) Basophils # (Manual) PT INR D-Dimer ABG pH POC ABG pCO2 POC ABG pO2 ABG pO2 ABG HCO3 ABG O2 Saturation ABG Base Excess ABG Hemoglobin ABG Oxyhemoglobin ABG Potassium ABG Glucose Oxyhemoglobin Carboxyhemoglobin Sodium 147 H Potassium Chloride Carbon Dioxide 40 H BUN Creatinine < 0.2 L Glucose 175 H POC Glucose 167 H 144 H Calcium Ferritin Total Bilirubin Alkaline Phosphatase Lactate Dehydrogenase Total Creatine Kinase CK-MB (CK-2) Rel Index Troponin T C-Reactive Protein Total Protein Albumin Prealbumin LDL Cholesterol Direct HDL Cholesterol Arterial Blood Glucose Arterial Blood Ionized Calcium Urine WBC (Auto) 03/12/20 03/12/20 03/13/20 17:32 23:57 05:57 WBC RBC Hgb Hct MCV MCH RDW Plt Count Lymph % (Auto) [place] % (Auto) Lymph # (Auto) [place] # (Auto) Seg Neutrophils % Seg Neuts % (Manual) Lymphocytes % (Manual) Monocytes % (Manual) Basophils % (Manual) Seg Neutrophils # Seg Neutrophils # Man Lymphocytes # (Manual) Monocytes # (Manual) Eosinophils # (Manual) Basophils # (Manual) PT INR D-Dimer ABG pH POC ABG pCO2 POC ABG pO2 ABG pO2 ABG HCO3 ABG O2 Saturation ABG Base Excess ABG Hemoglobin ABG Oxyhemoglobin ABG Potassium ABG Glucose Oxyhemoglobin Carboxyhemoglobin Sodium Potassium Chloride Carbon Dioxide BUN Creatinine Glucose POC Glucose 141 H 137 H 161 H Calcium Ferritin Total Bilirubin Alkaline Phosphatase Lactate Dehydrogenase Total Creatine Kinase CK-MB (CK-2) Rel Index Troponin T C-Reactive Protein Total Protein Albumin Prealbumin LDL Cholesterol Direct HDL Cholesterol Arterial Blood Glucose Arterial Blood Ionized Calcium Urine WBC (Auto) 03/13/20 03/13/20 03/13/20 12:28 14:14 18:39 WBC RBC Hgb Hct MCV MCH RDW Plt Count Lymph % (Auto) [place] % (Auto) Lymph # (Auto) [place] # (Auto) Seg Neutrophils % Seg Neuts % (Manual) Lymphocytes % (Manual) Monocytes % (Manual) Basophils % (Manual) Seg Neutrophils # Seg Neutrophils # Man Lymphocytes # (Manual) Monocytes # (Manual) Eosinophils # (Manual) Basophils # (Manual) PT INR D-Dimer ABG pH POC ABG pCO2 POC ABG pO2 ABG pO2 ABG HCO3 ABG O2 Saturation ABG Base Excess ABG Hemoglobin ABG Oxyhemoglobin ABG Potassium ABG Glucose Oxyhemoglobin Carboxyhemoglobin Sodium Potassium Chloride Carbon Dioxide 39 H BUN Creatinine < 0.2 L Glucose 129 H POC Glucose 130 H 125 H Calcium Ferritin Total Bilirubin Alkaline Phosphatase Lactate Dehydrogenase Total Creatine Kinase CK-MB (CK-2) Rel Index Troponin T C-Reactive Protein Total Protein Albumin Prealbumin LDL Cholesterol Direct HDL Cholesterol Arterial Blood Glucose Arterial Blood Ionized Calcium Urine WBC (Auto) 03/13/20 03/14/20 03/14/20 23:33 05:24 08:07 WBC 16.8 H RBC 2.81 L Hgb 7.9 L Hct 23.9 L MCV MCH RDW 15.9 H Plt Count Lymph % (Auto) [place] % (Auto) Lymph # (Auto) [place] # (Auto) Seg Neutrophils % Seg Neuts % (Manual) 84.0 H Lymphocytes % (Manual) 10.0 L Monocytes % (Manual) Basophils % (Manual) Seg Neutrophils # Seg Neutrophils # Man 14.1 H Lymphocytes # (Manual) Monocytes # (Manual) Eosinophils # (Manual) Basophils # (Manual) PT INR D-Dimer ABG pH POC ABG pCO2 POC ABG pO2 ABG pO2 ABG HCO3 ABG O2 Saturation ABG Base Excess ABG Hemoglobin ABG Oxyhemoglobin ABG Potassium ABG Glucose Oxyhemoglobin Carboxyhemoglobin Sodium Potassium Chloride Carbon Dioxide BUN Creatinine Glucose POC Glucose 146 H 125 H Calcium Ferritin Total Bilirubin Alkaline Phosphatase Lactate Dehydrogenase Total Creatine Kinase CK-MB (CK-2) Rel Index Troponin T C-Reactive Protein Total Protein Albumin Prealbumin LDL Cholesterol Direct HDL Cholesterol Arterial Blood Glucose Arterial Blood Ionized Calcium Urine WBC (Auto) 03/14/20 03/14/20 03/14/20 08:07 12:21 18:26 WBC RBC Hgb Hct MCV MCH RDW Plt Count Lymph % (Auto) [place] % (Auto) Lymph # (Auto) [place] # (Auto) Seg Neutrophils % Seg Neuts % (Manual) Lymphocytes % (Manual) Monocytes % (Manual) Basophils % (Manual) Seg Neutrophils # Seg Neutrophils # Man Lymphocytes # (Manual) Monocytes # (Manual) Eosinophils # (Manual) Basophils # (Manual) PT INR D-Dimer ABG pH POC ABG pCO2 POC ABG pO2 ABG pO2 ABG HCO3 ABG O2 Saturation ABG Base Excess ABG Hemoglobin ABG Oxyhemoglobin ABG Potassium ABG Glucose Oxyhemoglobin Carboxyhemoglobin Sodium Potassium Chloride 97.0 L Carbon Dioxide 37 H BUN Creatinine < 0.2 L Glucose 129 H POC Glucose 109 H 142 H Calcium 8.3 L Ferritin Total Bilirubin Alkaline Phosphatase Lactate Dehydrogenase Total Creatine Kinase CK-MB (CK-2) Rel Index Troponin T C-Reactive Protein Total Protein Albumin Prealbumin LDL Cholesterol Direct HDL Cholesterol Arterial Blood Glucose Arterial Blood Ionized Calcium Urine WBC (Auto) 03/14/20 03/15/20 03/15/20 23:57 05:46 08:06 WBC 19.7 H RBC 3.29 L Hgb 9.1 L Hct 28.0 L MCV MCH RDW 15.9 H Plt Count Lymph % (Auto) [place] % (Auto) Lymph # (Auto) [place] # (Auto) Seg Neutrophils % Seg Neuts % (Manual) Lymphocytes % (Manual) Monocytes % (Manual) Basophils % (Manual) Seg Neutrophils # Seg Neutrophils # Man Lymphocytes # (Manual) Monocytes # (Manual) Eosinophils # (Manual) Basophils # (Manual) PT INR D-Dimer ABG pH POC ABG pCO2 POC ABG pO2 ABG pO2 ABG HCO3 ABG O2 Saturation ABG Base Excess ABG Hemoglobin ABG Oxyhemoglobin ABG Potassium ABG Glucose Oxyhemoglobin Carboxyhemoglobin Sodium Potassium Chloride Carbon Dioxide BUN Creatinine Glucose POC Glucose 157 H 118 H Calcium Ferritin Total Bilirubin Alkaline Phosphatase Lactate Dehydrogenase Total Creatine Kinase CK-MB (CK-2) Rel Index Troponin T C-Reactive Protein Total Protein Albumin Prealbumin LDL Cholesterol Direct HDL Cholesterol Arterial Blood Glucose Arterial Blood Ionized Calcium Urine WBC (Auto) 03/15/20 03/15/20 03/15/20 08:06 12:44 18:09 WBC RBC Hgb Hct MCV MCH RDW Plt Count Lymph % (Auto) [place] % (Auto) Lymph # (Auto) [place] # (Auto) Seg Neutrophils % Seg Neuts % (Manual) Lymphocytes % (Manual) Monocytes % (Manual) Basophils % (Manual) Seg Neutrophils # Seg Neutrophils # Man Lymphocytes # (Manual) Monocytes # (Manual) Eosinophils # (Manual) Basophils # (Manual) PT INR D-Dimer ABG pH POC ABG pCO2 POC ABG pO2 ABG pO2 ABG HCO3 ABG O2 Saturation ABG Base Excess ABG Hemoglobin ABG Oxyhemoglobin ABG Potassium ABG Glucose Oxyhemoglobin Carboxyhemoglobin Sodium 136 L Potassium Chloride 93.6 L Carbon Dioxide 37 H BUN Creatinine < 0.2 L Glucose 132 H POC Glucose 151 H 164 H Calcium Ferritin Total Bilirubin Alkaline Phosphatase Lactate Dehydrogenase Total Creatine Kinase CK-MB (CK-2) Rel Index Troponin T C-Reactive Protein Total Protein Albumin Prealbumin LDL Cholesterol Direct HDL Cholesterol Arterial Blood Glucose Arterial Blood Ionized Calcium Urine WBC (Auto) 03/15/20 03/16/20 03/16/20 23:26 05:39 11:58 WBC RBC Hgb Hct MCV MCH RDW Plt Count Lymph % (Auto) [place] % (Auto) Lymph # (Auto) [place] # (Auto) Seg Neutrophils % Seg Neuts % (Manual) Lymphocytes % (Manual) Monocytes % (Manual) Basophils % (Manual) Seg Neutrophils # Seg Neutrophils # Man Lymphocytes # (Manual) Monocytes # (Manual) Eosinophils # (Manual) Basophils # (Manual) PT INR D-Dimer ABG pH POC ABG pCO2 POC ABG pO2 ABG pO2 ABG HCO3 ABG O2 Saturation ABG Base Excess ABG Hemoglobin ABG Oxyhemoglobin ABG Potassium ABG Glucose Oxyhemoglobin Carboxyhemoglobin Sodium Potassium Chloride Carbon Dioxide BUN Creatinine Glucose POC Glucose 136 H 116 H 109 H Calcium Ferritin Total Bilirubin Alkaline Phosphatase Lactate Dehydrogenase Total Creatine Kinase CK-MB (CK-2) Rel Index Troponin T C-Reactive Protein Total Protein Albumin Prealbumin LDL Cholesterol Direct HDL Cholesterol Arterial Blood Glucose Arterial Blood Ionized Calcium Urine WBC (Auto) 03/16/20 03/17/20 03/17/20 23:56 04:40 04:40 WBC 18.0 H RBC 3.33 L Hgb 9.5 L Hct 28.8 L MCV MCH RDW 16.4 H Plt Count 499 H Lymph % (Auto) [place] % (Auto) Lymph # (Auto) [place] # (Auto) Seg Neutrophils % Seg Neuts % (Manual) 82.0 H Lymphocytes % (Manual) 8.0 L Monocytes % (Manual) Basophils % (Manual) Seg Neutrophils # Seg Neutrophils # Man 14.8 H Lymphocytes # (Manual) Monocytes # (Manual) 1.3 H Eosinophils # (Manual) Basophils # (Manual) 0.2 H PT INR D-Dimer ABG pH POC ABG pCO2 POC ABG pO2 ABG pO2 ABG HCO3 ABG O2 Saturation ABG Base Excess ABG Hemoglobin ABG Oxyhemoglobin ABG Potassium ABG Glucose Oxyhemoglobin Carboxyhemoglobin Sodium Potassium Chloride 97.7 L Carbon Dioxide 32 H BUN Creatinine < 0.2 L Glucose 114 H POC Glucose 131 H Calcium Ferritin Total Bilirubin Alkaline Phosphatase Lactate Dehydrogenase Total Creatine Kinase CK-MB (CK-2) Rel Index Troponin T C-Reactive Protein Total Protein Albumin Prealbumin LDL Cholesterol Direct HDL Cholesterol Arterial Blood Glucose Arterial Blood Ionized Calcium Urine WBC (Auto) 03/18/20 03/18/20 03/18/20 00:21 05:21 11:55 WBC RBC Hgb Hct MCV MCH RDW Plt Count Lymph % (Auto) [place] % (Auto) Lymph # (Auto) [place] # (Auto) Seg Neutrophils % Seg Neuts % (Manual) Lymphocytes % (Manual) Monocytes % (Manual) Basophils % (Manual) Seg Neutrophils # Seg Neutrophils # Man Lymphocytes # (Manual) Monocytes # (Manual) Eosinophils # (Manual) Basophils # (Manual) PT INR D-Dimer ABG pH POC ABG pCO2 POC ABG pO2 ABG pO2 ABG HCO3 ABG O2 Saturation ABG Base Excess ABG Hemoglobin ABG Oxyhemoglobin ABG Potassium ABG Glucose Oxyhemoglobin Carboxyhemoglobin Sodium Potassium Chloride Carbon Dioxide BUN Creatinine Glucose POC Glucose 124 H 138 H 119 H Calcium Ferritin Total Bilirubin Alkaline Phosphatase Lactate Dehydrogenase Total Creatine Kinase CK-MB (CK-2) Rel Index Troponin T C-Reactive Protein Total Protein Albumin Prealbumin LDL Cholesterol Direct HDL Cholesterol Arterial Blood Glucose Arterial Blood Ionized Calcium Urine WBC (Auto) 03/18/20 03/18/20 03/19/20 17:03 23:58 05:24 WBC RBC Hgb Hct MCV MCH RDW Plt Count Lymph % (Auto) [place] % (Auto) Lymph # (Auto) [place] # (Auto) Seg Neutrophils % Seg Neuts % (Manual) Lymphocytes % (Manual) Monocytes % (Manual) Basophils % (Manual) Seg Neutrophils # Seg Neutrophils # Man Lymphocytes # (Manual) Monocytes # (Manual) Eosinophils # (Manual) Basophils # (Manual) PT INR D-Dimer ABG pH POC ABG pCO2 POC ABG pO2 ABG pO2 ABG HCO3 ABG O2 Saturation ABG Base Excess ABG Hemoglobin ABG Oxyhemoglobin ABG Potassium ABG Glucose Oxyhemoglobin Carboxyhemoglobin Sodium Potassium Chloride Carbon Dioxide BUN Creatinine Glucose POC Glucose 128 H 128 H 115 H Calcium Ferritin Total Bilirubin Alkaline Phosphatase Lactate Dehydrogenase Total Creatine Kinase CK-MB (CK-2) Rel Index Troponin T C-Reactive Protein Total Protein Albumin Prealbumin LDL Cholesterol Direct HDL Cholesterol Arterial Blood Glucose Arterial Blood Ionized Calcium Urine WBC (Auto) 03/19/20 03/19/20 03/19/20 08:05 08:05 11:56 WBC 16.8 H RBC 3.36 L Hgb 9.4 L Hct 28.8 L MCV MCH RDW 17.4 H Plt Count 567 H Lymph % (Auto) 7.8 L [place] % (Auto) Lymph # (Auto) [place] # (Auto) 1.2 H Seg Neutrophils % 83.5 H Seg Neuts % (Manual) Lymphocytes % (Manual) Monocytes % (Manual) Basophils % (Manual) Seg Neutrophils # 14.1 H Seg Neutrophils # Man Lymphocytes # (Manual) Monocytes # (Manual) Eosinophils # (Manual) Basophils # (Manual) PT INR D-Dimer ABG pH POC ABG pCO2 POC ABG pO2 ABG pO2 ABG HCO3 ABG O2 Saturation ABG Base Excess ABG Hemoglobin ABG Oxyhemoglobin ABG Potassium ABG Glucose Oxyhemoglobin Carboxyhemoglobin Sodium Potassium Chloride Carbon Dioxide 36 H BUN Creatinine < 0.2 L Glucose 135 H POC Glucose 128 H Calcium Ferritin Total Bilirubin Alkaline Phosphatase Lactate Dehydrogenase Total Creatine Kinase CK-MB (CK-2) Rel Index Troponin T C-Reactive Protein Total Protein Albumin Prealbumin LDL Cholesterol Direct HDL Cholesterol Arterial Blood Glucose Arterial Blood Ionized Calcium Urine WBC (Auto) 03/19/20 03/20/20 03/20/20 23:59 05:12 16:52 WBC RBC Hgb Hct MCV MCH RDW Plt Count Lymph % (Auto) [place] % (Auto) Lymph # (Auto) [place] # (Auto) Seg Neutrophils % Seg Neuts % (Manual) Lymphocytes % (Manual) Monocytes % (Manual) Basophils % (Manual) Seg Neutrophils # Seg Neutrophils # Man Lymphocytes # (Manual) Monocytes # (Manual) Eosinophils # (Manual) Basophils # (Manual) PT INR D-Dimer ABG pH POC ABG pCO2 POC ABG pO2 ABG pO2 ABG HCO3 ABG O2 Saturation ABG Base Excess ABG Hemoglobin ABG Oxyhemoglobin ABG Potassium ABG Glucose Oxyhemoglobin Carboxyhemoglobin Sodium Potassium Chloride Carbon Dioxide BUN Creatinine Glucose POC Glucose 120 H 131 H 124 H Calcium Ferritin Total Bilirubin Alkaline Phosphatase Lactate Dehydrogenase Total Creatine Kinase CK-MB (CK-2) Rel Index Troponin T C-Reactive Protein Total Protein Albumin Prealbumin LDL Cholesterol Direct HDL Cholesterol Arterial Blood Glucose Arterial Blood Ionized Calcium Urine WBC (Auto) 03/20/20 03/21/20 03/21/20 23:35 04:50 07:35 WBC 15.2 H RBC 3.39 L Hgb 9.4 L Hct 29.4 L MCV MCH RDW 17.6 H Plt Count 518 H Lymph % (Auto) [place] % (Auto) Lymph # (Auto) [place] # (Auto) Seg Neutrophils % Seg Neuts % (Manual) 83.0 H Lymphocytes % (Manual) 10.0 L Monocytes % (Manual) Basophils % (Manual) 2.0 H Seg Neutrophils # Seg Neutrophils # Man 12.6 H Lymphocytes # (Manual) Monocytes # (Manual) Eosinophils # (Manual) Basophils # (Manual) 0.3 H PT INR D-Dimer ABG pH POC ABG pCO2 POC ABG pO2 ABG pO2 ABG HCO3 ABG O2 Saturation ABG Base Excess ABG Hemoglobin ABG Oxyhemoglobin ABG Potassium ABG Glucose Oxyhemoglobin Carboxyhemoglobin Sodium Potassium Chloride Carbon Dioxide BUN Creatinine Glucose POC Glucose 125 H 127 H Calcium Ferritin Total Bilirubin Alkaline Phosphatase Lactate Dehydrogenase Total Creatine Kinase CK-MB (CK-2) Rel Index Troponin T C-Reactive Protein Total Protein Albumin Prealbumin LDL Cholesterol Direct HDL Cholesterol Arterial Blood Glucose Arterial Blood Ionized Calcium Urine WBC (Auto) 03/21/20 03/21/20 03/21/20 07:35 11:45 17:22 WBC RBC Hgb Hct MCV MCH RDW Plt Count Lymph % (Auto) [place] % (Auto) Lymph # (Auto) [place] # (Auto) Seg Neutrophils % Seg Neuts % (Manual) Lymphocytes % (Manual) Monocytes % (Manual) Basophils % (Manual) Seg Neutrophils # Seg Neutrophils # Man Lymphocytes # (Manual) Monocytes # (Manual) Eosinophils # (Manual) Basophils # (Manual) PT INR D-Dimer ABG pH POC ABG pCO2 POC ABG pO2 ABG pO2 ABG HCO3 ABG O2 Saturation ABG Base Excess ABG Hemoglobin ABG Oxyhemoglobin ABG Potassium ABG Glucose Oxyhemoglobin Carboxyhemoglobin Sodium 136 L Potassium Chloride 97.7 L Carbon Dioxide 32 H BUN Creatinine < 0.2 L Glucose 103 H POC Glucose 126 H 120 H Calcium Ferritin Total Bilirubin Alkaline Phosphatase Lactate Dehydrogenase Total Creatine Kinase CK-MB (CK-2) Rel Index Troponin T C-Reactive Protein Total Protein Albumin Prealbumin LDL Cholesterol Direct HDL Cholesterol Arterial Blood Glucose Arterial Blood Ionized Calcium Urine WBC (Auto) 11/25/20 11/25/20 11/25/20 05:09 06:34 06:34 WBC 17.5 H RBC 3.52 L Hgb 10.0 L Hct 30.7 L MCV MCH RDW 17.5 H Plt Count 499 H Lymph % (Auto) [place] % (Auto) Lymph # (Auto) [place] # (Auto) Seg Neutrophils % Seg Neuts % (Manual) 80.0 H Lymphocytes % (Manual) 10.0 L Monocytes % (Manual) Basophils % (Manual) Seg Neutrophils # Seg Neutrophils # Man 14.0 H Lymphocytes # (Manual) Monocytes # (Manual) Eosinophils # (Manual) Basophils # (Manual) PT INR D-Dimer ABG pH POC ABG pCO2 POC ABG pO2 ABG pO2 ABG HCO3 ABG O2 Saturation ABG Base Excess ABG Hemoglobin ABG Oxyhemoglobin ABG Potassium ABG Glucose Oxyhemoglobin Carboxyhemoglobin Sodium Potassium Chloride 96.6 L Carbon Dioxide 38 H BUN Creatinine < 0.2 L Glucose 139 H POC Glucose 125 H Calcium Ferritin Total Bilirubin Alkaline Phosphatase Lactate Dehydrogenase Total Creatine Kinase CK-MB (CK-2) Rel Index Troponin T C-Reactive Protein Total Protein Albumin Prealbumin LDL Cholesterol Direct HDL Cholesterol Arterial Blood Glucose Arterial Blood Ionized Calcium Urine WBC (Auto) 03/22/20 03/22/20 03/22/20 11:45 18:00 23:32 WBC RBC Hgb Hct MCV MCH RDW Plt Count Lymph % (Auto) [place] % (Auto) Lymph # (Auto) [place] # (Auto) Seg Neutrophils % Seg Neuts % (Manual) Lymphocytes % (Manual) Monocytes % (Manual) Basophils % (Manual) Seg Neutrophils # Seg Neutrophils # Man Lymphocytes # (Manual) Monocytes # (Manual) Eosinophils # (Manual) Basophils # (Manual) PT INR D-Dimer ABG pH POC ABG pCO2 POC ABG pO2 ABG pO2 ABG HCO3 ABG O2 Saturation ABG Base Excess ABG Hemoglobin ABG Oxyhemoglobin ABG Potassium ABG Glucose Oxyhemoglobin Carboxyhemoglobin Sodium Potassium Chloride Carbon Dioxide BUN Creatinine Glucose POC Glucose 135 H 133 H Calcium Ferritin Total Bilirubin Alkaline Phosphatase Lactate Dehydrogenase Total Creatine Kinase CK-MB (CK-2) Rel Index Troponin T 0.113 H* C-Reactive Protein Total Protein Albumin Prealbumin LDL Cholesterol Direct HDL Cholesterol Arterial Blood Glucose Arterial Blood Ionized Calcium Urine WBC (Auto) 03/23/20 03/23/20 03/23/20 01:47 06:21 07:57 WBC RBC Hgb Hct MCV MCH RDW Plt Count Lymph % (Auto) [place] % (Auto) Lymph # (Auto) [place] # (Auto) Seg Neutrophils % Seg Neuts % (Manual) Lymphocytes % (Manual) Monocytes % (Manual) Basophils % (Manual) Seg Neutrophils # Seg Neutrophils # Man Lymphocytes # (Manual) Monocytes # (Manual) Eosinophils # (Manual) Basophils # (Manual) PT INR D-Dimer ABG pH POC ABG pCO2 POC ABG pO2 ABG pO2 ABG HCO3 ABG O2 Saturation ABG Base Excess ABG Hemoglobin ABG Oxyhemoglobin ABG Potassium ABG Glucose Oxyhemoglobin Carboxyhemoglobin Sodium Potassium Chloride Carbon Dioxide BUN Creatinine Glucose POC Glucose 130 H Calcium Ferritin Total Bilirubin Alkaline Phosphatase Lactate Dehydrogenase Total Creatine Kinase CK-MB (CK-2) Rel Index Troponin T 0.143 H* D 0.105 H* D C-Reactive Protein Total Protein Albumin Prealbumin LDL Cholesterol Direct HDL Cholesterol Arterial Blood Glucose Arterial Blood Ionized Calcium Urine WBC (Auto) 03/23/20 03/24/20 03/24/20 12:02 05:33 07:15 WBC 18.0 H RBC Hgb 11.0 L Hct 34.0 L MCV MCH RDW 17.4 H Plt Count 520 H Lymph % (Auto) [place] % (Auto) Lymph # (Auto) [place] # (Auto) Seg Neutrophils % Seg Neuts % (Manual) 88.0 H Lymphocytes % (Manual) 7.0 L Monocytes % (Manual) Basophils % (Manual) Seg Neutrophils # Seg Neutrophils # Man 15.8 H Lymphocytes # (Manual) Monocytes # (Manual) Eosinophils # (Manual) Basophils # (Manual) PT INR D-Dimer ABG pH POC ABG pCO2 POC ABG pO2 ABG pO2 ABG HCO3 ABG O2 Saturation ABG Base Excess ABG Hemoglobin ABG Oxyhemoglobin ABG Potassium ABG Glucose Oxyhemoglobin Carboxyhemoglobin Sodium Potassium Chloride Carbon Dioxide BUN Creatinine Glucose POC Glucose 137 H 112 H Calcium Ferritin Total Bilirubin Alkaline Phosphatase Lactate Dehydrogenase Total Creatine Kinase CK-MB (CK-2) Rel Index Troponin T C-Reactive Protein Total Protein Albumin Prealbumin LDL Cholesterol Direct HDL Cholesterol Arterial Blood Glucose Arterial Blood Ionized Calcium Urine WBC (Auto) 03/24/20 03/24/20 03/24/20 07:15 11:22 23:30 WBC RBC Hgb Hct MCV MCH RDW Plt Count Lymph % (Auto) [place] % (Auto) Lymph # (Auto) [place] # (Auto) Seg Neutrophils % Seg Neuts % (Manual) Lymphocytes % (Manual) Monocytes % (Manual) Basophils % (Manual) Seg Neutrophils # Seg Neutrophils # Man Lymphocytes # (Manual) Monocytes # (Manual) Eosinophils # (Manual) Basophils # (Manual) PT INR D-Dimer ABG pH POC ABG pCO2 POC ABG pO2 ABG pO2 ABG HCO3 ABG O2 Saturation ABG Base Excess ABG Hemoglobin ABG Oxyhemoglobin ABG Potassium ABG Glucose Oxyhemoglobin Carboxyhemoglobin Sodium Potassium Chloride 96.6 L Carbon Dioxide 38 H BUN Creatinine < 0.2 L Glucose 141 H POC Glucose 130 H 120 H Calcium Ferritin Total Bilirubin Alkaline Phosphatase Lactate Dehydrogenase Total Creatine Kinase CK-MB (CK-2) Rel Index Troponin T C-Reactive Protein Total Protein Albumin Prealbumin LDL Cholesterol Direct HDL Cholesterol Arterial Blood Glucose Arterial Blood Ionized Calcium Urine WBC (Auto) 03/25/20 03/25/20 03/25/20 05:48 17:53 23:18 WBC RBC Hgb Hct MCV MCH RDW Plt Count Lymph % (Auto) [place] % (Auto) Lymph # (Auto) [place] # (Auto) Seg Neutrophils % Seg Neuts % (Manual) Lymphocytes % (Manual) Monocytes % (Manual) Basophils % (Manual) Seg Neutrophils # Seg Neutrophils # Man Lymphocytes # (Manual) Monocytes # (Manual) Eosinophils # (Manual) Basophils # (Manual) PT INR D-Dimer ABG pH POC ABG pCO2 POC ABG pO2 ABG pO2 ABG HCO3 ABG O2 Saturation ABG Base Excess ABG Hemoglobin ABG Oxyhemoglobin ABG Potassium ABG Glucose Oxyhemoglobin Carboxyhemoglobin Sodium Potassium Chloride Carbon Dioxide BUN Creatinine Glucose POC Glucose 124 H 109 H 131 H Calcium Ferritin Total Bilirubin Alkaline Phosphatase Lactate Dehydrogenase Total Creatine Kinase CK-MB (CK-2) Rel Index Troponin T C-Reactive Protein Total Protein Albumin Prealbumin LDL Cholesterol Direct HDL Cholesterol Arterial Blood Glucose Arterial Blood Ionized Calcium Urine WBC (Auto) 03/26/20 03/26/20 03/26/20 05:21 08:49 08:49 WBC 19.7 H RBC Hgb 10.7 L Hct 33.5 L MCV MCH 27 L RDW 17.1 H Plt Count 480 H Lymph % (Auto) 5.7 L [place] % (Auto) Lymph # (Auto) 1.1 L [place] # (Auto) 1.2 H Seg Neutrophils % 87.7 H Seg Neuts % (Manual) Lymphocytes % (Manual) Monocytes % (Manual) Basophils % (Manual) Seg Neutrophils # 17.2 H Seg Neutrophils # Man Lymphocytes # (Manual) Monocytes # (Manual) Eosinophils # (Manual) Basophils # (Manual) PT INR D-Dimer ABG pH POC ABG pCO2 POC ABG pO2 ABG pO2 ABG HCO3 ABG O2 Saturation ABG Base Excess ABG Hemoglobin ABG Oxyhemoglobin ABG Potassium ABG Glucose Oxyhemoglobin Carboxyhemoglobin Sodium Potassium Chloride 97.2 L Carbon Dioxide 36 H BUN Creatinine < 0.2 L Glucose 127 H POC Glucose 116 H Calcium Ferritin Total Bilirubin Alkaline Phosphatase Lactate Dehydrogenase Total Creatine Kinase CK-MB (CK-2) Rel Index Troponin T C-Reactive Protein Total Protein Albumin Prealbumin LDL Cholesterol Direct HDL Cholesterol Arterial Blood Glucose Arterial Blood Ionized Calcium Urine WBC (Auto) 03/26/20 03/26/20 03/26/20 11:38 18:44 23:06 WBC RBC Hgb Hct MCV MCH RDW Plt Count Lymph % (Auto) [place] % (Auto) Lymph # (Auto) [place] # (Auto) Seg Neutrophils % Seg Neuts % (Manual) Lymphocytes % (Manual) Monocytes % (Manual) Basophils % (Manual) Seg Neutrophils # Seg Neutrophils # Man Lymphocytes # (Manual) Monocytes # (Manual) Eosinophils # (Manual) Basophils # (Manual) PT INR D-Dimer ABG pH POC ABG pCO2 POC ABG pO2 ABG pO2 ABG HCO3 ABG O2 Saturation ABG Base Excess ABG Hemoglobin ABG Oxyhemoglobin ABG Potassium ABG Glucose Oxyhemoglobin Carboxyhemoglobin Sodium Potassium Chloride Carbon Dioxide BUN Creatinine Glucose POC Glucose 120 H 111 H 134 H Calcium Ferritin Total Bilirubin Alkaline Phosphatase Lactate Dehydrogenase Total Creatine Kinase CK-MB (CK-2) Rel Index Troponin T C-Reactive Protein Total Protein Albumin Prealbumin LDL Cholesterol Direct HDL Cholesterol Arterial Blood Glucose Arterial Blood Ionized Calcium Urine WBC (Auto) 03/27/20 03/27/20 03/27/20 05:41 05:59 05:59 WBC 18.6 H RBC Hgb 10.1 L Hct 31.4 L MCV MCH RDW 17.2 H Plt Count Lymph % (Auto) 8.0 L [place] % (Auto) Lymph # (Auto) [place] # (Auto) 1.2 H Seg Neutrophils % 84.7 H Seg Neuts % (Manual) Lymphocytes % (Manual) Monocytes % (Manual) Basophils % (Manual) Seg Neutrophils # 15.8 H Seg Neutrophils # Man Lymphocytes # (Manual) Monocytes # (Manual) Eosinophils # (Manual) Basophils # (Manual) PT INR D-Dimer ABG pH POC ABG pCO2 POC ABG pO2 ABG pO2 ABG HCO3 ABG O2 Saturation ABG Base Excess ABG Hemoglobin ABG Oxyhemoglobin ABG Potassium ABG Glucose Oxyhemoglobin Carboxyhemoglobin Sodium Potassium Chloride Carbon Dioxide 34 H BUN Creatinine < 0.2 L Glucose 127 H POC Glucose 129 H Calcium Ferritin Total Bilirubin Alkaline Phosphatase Lactate Dehydrogenase Total Creatine Kinase CK-MB (CK-2) Rel Index Troponin T C-Reactive Protein Total Protein Albumin Prealbumin LDL Cholesterol Direct HDL Cholesterol Arterial Blood Glucose Arterial Blood Ionized Calcium Urine WBC (Auto) 03/27/20 03/27/20 03/28/20 17:28 23:22 05:23 WBC RBC Hgb Hct MCV MCH RDW Plt Count Lymph % (Auto) [place] % (Auto) Lymph # (Auto) [place] # (Auto) Seg Neutrophils % Seg Neuts % (Manual) Lymphocytes % (Manual) Monocytes % (Manual) Basophils % (Manual) Seg Neutrophils # Seg Neutrophils # Man Lymphocytes # (Manual) Monocytes # (Manual) Eosinophils # (Manual) Basophils # (Manual) PT INR D-Dimer ABG pH POC ABG pCO2 POC ABG pO2 ABG pO2 ABG HCO3 ABG O2 Saturation ABG Base Excess ABG Hemoglobin ABG Oxyhemoglobin ABG Potassium ABG Glucose Oxyhemoglobin Carboxyhemoglobin Sodium Potassium Chloride Carbon Dioxide BUN Creatinine Glucose POC Glucose 108 H 119 H 129 H Calcium Ferritin Total Bilirubin Alkaline Phosphatase Lactate Dehydrogenase Total Creatine Kinase CK-MB (CK-2) Rel Index Troponin T C-Reactive Protein Total Protein Albumin Prealbumin LDL Cholesterol Direct HDL Cholesterol Arterial Blood Glucose Arterial Blood Ionized Calcium Urine WBC (Auto) 03/28/20 03/28/20 03/28/20 10:28 10:28 11:36 WBC 23.6 H RBC 3.62 L Hgb 10.0 L Hct 30.8 L MCV MCH RDW 16.4 H Plt Count Lymph % (Auto) [place] % (Auto) Lymph # (Auto) [place] # (Auto) Seg Neutrophils % Seg Neuts % (Manual) 89.0 H Lymphocytes % (Manual) 5.0 L Monocytes % (Manual) Basophils % (Manual) Seg Neutrophils # Seg Neutrophils # Man 21.0 H Lymphocytes # (Manual) Monocytes # (Manual) 1.2 H Eosinophils # (Manual) Basophils # (Manual) 0.2 H PT INR D-Dimer ABG pH POC ABG pCO2 POC ABG pO2 ABG pO2 ABG HCO3 ABG O2 Saturation ABG Base Excess ABG Hemoglobin ABG Oxyhemoglobin ABG Potassium ABG Glucose Oxyhemoglobin Carboxyhemoglobin Sodium 134 L Potassium Chloride 94.2 L Carbon Dioxide 35 H BUN Creatinine < 0.2 L Glucose 134 H POC Glucose Calcium Ferritin Total Bilirubin Alkaline Phosphatase Lactate Dehydrogenase Total Creatine Kinase CK-MB (CK-2) Rel Index Troponin T C-Reactive Protein Total Protein Albumin Prealbumin LDL Cholesterol Direct HDL Cholesterol Arterial Blood Glucose Arterial Blood Ionized Calcium Urine WBC (Auto) 39.0 H 03/28/20 03/28/20 03/28/20 11:51 17:08 17:17 WBC RBC Hgb Hct MCV MCH RDW Plt Count Lymph % (Auto) [place] % (Auto) Lymph # (Auto) [place] # (Auto) Seg Neutrophils % Seg Neuts % (Manual) Lymphocytes % (Manual) Monocytes % (Manual) Basophils % (Manual) Seg Neutrophils # Seg Neutrophils # Man Lymphocytes # (Manual) Monocytes # (Manual) Eosinophils # (Manual) Basophils # (Manual) PT INR D-Dimer ABG pH POC ABG pCO2 POC ABG pO2 ABG pO2 ABG HCO3 ABG O2 Saturation ABG Base Excess ABG Hemoglobin ABG Oxyhemoglobin ABG Potassium ABG Glucose Oxyhemoglobin Carboxyhemoglobin Sodium Potassium Chloride Carbon Dioxide BUN Creatinine Glucose POC Glucose 123 H 112 H Calcium Ferritin Total Bilirubin Alkaline Phosphatase Lactate Dehydrogenase Total Creatine Kinase 47 L CK-MB (CK-2) Rel Index 4.6 H Troponin T 0.090 H C-Reactive Protein Total Protein Albumin Prealbumin LDL Cholesterol Direct HDL Cholesterol Arterial Blood Glucose Arterial Blood Ionized Calcium Urine WBC (Auto) 03/28/20 03/29/20 03/29/20 23:22 05:22 10:58 WBC RBC Hgb Hct MCV MCH RDW Plt Count Lymph % (Auto) [place] % (Auto) Lymph # (Auto) [place] # (Auto) Seg Neutrophils % Seg Neuts % (Manual) Lymphocytes % (Manual) Monocytes % (Manual) Basophils % (Manual) Seg Neutrophils # Seg Neutrophils # Man Lymphocytes # (Manual) Monocytes # (Manual) Eosinophils # (Manual) Basophils # (Manual) PT INR D-Dimer ABG pH POC ABG pCO2 POC ABG pO2 ABG pO2 ABG HCO3 ABG O2 Saturation ABG Base Excess ABG Hemoglobin ABG Oxyhemoglobin ABG Potassium ABG Glucose Oxyhemoglobin Carboxyhemoglobin Sodium Potassium Chloride Carbon Dioxide BUN Creatinine Glucose POC Glucose 122 H 116 H 133 H Calcium Ferritin Total Bilirubin Alkaline Phosphatase Lactate Dehydrogenase Total Creatine Kinase CK-MB (CK-2) Rel Index Troponin T C-Reactive Protein Total Protein Albumin Prealbumin LDL Cholesterol Direct HDL Cholesterol Arterial Blood Glucose Arterial Blood Ionized Calcium Urine WBC (Auto) 03/29/20 03/29/20 03/30/20 17:18 23:14 04:57 WBC RBC Hgb Hct MCV MCH RDW Plt Count Lymph % (Auto) [place] % (Auto) Lymph # (Auto) [place] # (Auto) Seg Neutrophils % Seg Neuts % (Manual) Lymphocytes % (Manual) Monocytes % (Manual) Basophils % (Manual) Seg Neutrophils # Seg Neutrophils # Man Lymphocytes # (Manual) Monocytes # (Manual) Eosinophils # (Manual) Basophils # (Manual) PT INR D-Dimer ABG pH POC ABG pCO2 POC ABG pO2 ABG pO2 ABG HCO3 ABG O2 Saturation ABG Base Excess ABG Hemoglobin ABG Oxyhemoglobin ABG Potassium ABG Glucose Oxyhemoglobin Carboxyhemoglobin Sodium Potassium Chloride Carbon Dioxide BUN Creatinine Glucose POC Glucose 111 H 114 H 130 H Calcium Ferritin Total Bilirubin Alkaline Phosphatase Lactate Dehydrogenase Total Creatine Kinase CK-MB (CK-2) Rel Index Troponin T C-Reactive Protein Total Protein Albumin Prealbumin LDL Cholesterol Direct HDL Cholesterol Arterial Blood Glucose Arterial Blood Ionized Calcium Urine WBC (Auto) 03/30/20 03/30/20 03/30/20 11:38 14:47 14:47 WBC 19.9 H RBC Hgb 10.9 L Hct 34.4 L MCV MCH 27 L RDW 16.5 H Plt Count 441 H Lymph % (Auto) 6.4 L [place] % (Auto) Lymph # (Auto) [place] # (Auto) 1.4 H Seg Neutrophils % 86.1 H Seg Neuts % (Manual) Lymphocytes % (Manual) Monocytes % (Manual) Basophils % (Manual) Seg Neutrophils # 17.1 H Seg Neutrophils # Man Lymphocytes # (Manual) Monocytes # (Manual) Eosinophils # (Manual) Basophils # (Manual) PT INR D-Dimer ABG pH POC ABG pCO2 POC ABG pO2 ABG pO2 ABG HCO3 ABG O2 Saturation ABG Base Excess ABG Hemoglobin ABG Oxyhemoglobin ABG Potassium ABG Glucose Oxyhemoglobin Carboxyhemoglobin Sodium 133 L Potassium Chloride 94.6 L Carbon Dioxide 33 H BUN Creatinine < 0.2 L Glucose 194 H POC Glucose 139 H Calcium Ferritin Total Bilirubin Alkaline Phosphatase Lactate Dehydrogenase Total Creatine Kinase CK-MB (CK-2) Rel Index Troponin T C-Reactive Protein Total Protein Albumin 2.8 L Prealbumin LDL Cholesterol Direct HDL Cholesterol Arterial Blood Glucose Arterial Blood Ionized Calcium Urine WBC (Auto) 03/30/20 03/31/20 03/31/20 17:07 05:02 15:21 WBC RBC Hgb Hct MCV MCH RDW Plt Count Lymph % (Auto) [place] % (Auto) Lymph # (Auto) [place] # (Auto) Seg Neutrophils % Seg Neuts % (Manual) Lymphocytes % (Manual) Monocytes % (Manual) Basophils % (Manual) Seg Neutrophils # Seg Neutrophils # Man Lymphocytes # (Manual) Monocytes # (Manual) Eosinophils # (Manual) Basophils # (Manual) PT INR D-Dimer ABG pH POC ABG pCO2 POC ABG pO2 ABG pO2 ABG HCO3 ABG O2 Saturation ABG Base Excess ABG Hemoglobin ABG Oxyhemoglobin ABG Potassium ABG Glucose Oxyhemoglobin Carboxyhemoglobin Sodium Potassium Chloride Carbon Dioxide BUN Creatinine Glucose POC Glucose 163 H 108 H 110 H Calcium Ferritin Total Bilirubin Alkaline Phosphatase Lactate Dehydrogenase Total Creatine Kinase CK-MB (CK-2) Rel Index Troponin T C-Reactive Protein Total Protein Albumin Prealbumin LDL Cholesterol Direct HDL Cholesterol Arterial Blood Glucose Arterial Blood Ionized Calcium Urine WBC (Auto) 03/31/20 03/31/20 04/01/20 17:58 23:19 05:09 WBC RBC Hgb Hct MCV MCH RDW Plt Count Lymph % (Auto) [place] % (Auto) Lymph # (Auto) [place] # (Auto) Seg Neutrophils % Seg Neuts % (Manual) Lymphocytes % (Manual) Monocytes % (Manual) Basophils % (Manual) Seg Neutrophils # Seg Neutrophils # Man Lymphocytes # (Manual) Monocytes # (Manual) Eosinophils # (Manual) Basophils # (Manual) PT INR D-Dimer ABG pH POC ABG pCO2 POC ABG pO2 ABG pO2 ABG HCO3 ABG O2 Saturation ABG Base Excess ABG Hemoglobin ABG Oxyhemoglobin ABG Potassium ABG Glucose Oxyhemoglobin Carboxyhemoglobin Sodium Potassium Chloride Carbon Dioxide BUN Creatinine Glucose POC Glucose 110 H 131 H 124 H Calcium Ferritin Total Bilirubin Alkaline Phosphatase Lactate Dehydrogenase Total Creatine Kinase CK-MB (CK-2) Rel Index Troponin T C-Reactive Protein Total Protein Albumin Prealbumin LDL Cholesterol Direct HDL Cholesterol Arterial Blood Glucose Arterial Blood Ionized Calcium Urine WBC (Auto) 04/01/20 04/01/20 04/01/20 11:50 17:01 23:21 WBC RBC Hgb Hct MCV MCH RDW Plt Count Lymph % (Auto) [place] % (Auto) Lymph # (Auto) [place] # (Auto) Seg Neutrophils % Seg Neuts % (Manual) Lymphocytes % (Manual) Monocytes % (Manual) Basophils % (Manual) Seg Neutrophils # Seg Neutrophils # Man Lymphocytes # (Manual) Monocytes # (Manual) Eosinophils # (Manual) Basophils # (Manual) PT INR D-Dimer ABG pH POC ABG pCO2 POC ABG pO2 ABG pO2 ABG HCO3 ABG O2 Saturation ABG Base Excess ABG Hemoglobin ABG Oxyhemoglobin ABG Potassium ABG Glucose Oxyhemoglobin Carboxyhemoglobin Sodium Potassium Chloride Carbon Dioxide BUN Creatinine Glucose POC Glucose 136 H 115 H 124 H Calcium Ferritin Total Bilirubin Alkaline Phosphatase Lactate Dehydrogenase Total Creatine Kinase CK-MB (CK-2) Rel Index Troponin T C-Reactive Protein Total Protein Albumin Prealbumin LDL Cholesterol Direct HDL Cholesterol Arterial Blood Glucose Arterial Blood Ionized Calcium Urine WBC (Auto) 04/02/20 04/02/20 04/02/20 05:27 11:58 17:58 WBC RBC Hgb Hct MCV MCH RDW Plt Count Lymph % (Auto) [place] % (Auto) Lymph # (Auto) [place] # (Auto) Seg Neutrophils % Seg Neuts % (Manual) Lymphocytes % (Manual) Monocytes % (Manual) Basophils % (Manual) Seg Neutrophils # Seg Neutrophils # Man Lymphocytes # (Manual) Monocytes # (Manual) Eosinophils # (Manual) Basophils # (Manual) PT INR D-Dimer ABG pH POC ABG pCO2 POC ABG pO2 ABG pO2 ABG HCO3 ABG O2 Saturation ABG Base Excess ABG Hemoglobin ABG Oxyhemoglobin ABG Potassium ABG Glucose Oxyhemoglobin Carboxyhemoglobin Sodium Potassium Chloride Carbon Dioxide BUN Creatinine Glucose POC Glucose 117 H 133 H 122 H Calcium Ferritin Total Bilirubin Alkaline Phosphatase Lactate Dehydrogenase Total Creatine Kinase CK-MB (CK-2) Rel Index Troponin T C-Reactive Protein Total Protein Albumin Prealbumin LDL Cholesterol Direct HDL Cholesterol Arterial Blood Glucose Arterial Blood Ionized Calcium Urine WBC (Auto) 04/02/20 04/03/2020 23:12 05:11 11:11 WBC RBC Hgb Hct MCV MCH RDW Plt Count Lymph % (Auto) [place] % (Auto) Lymph # (Auto) [place] # (Auto) Seg Neutrophils % Seg Neuts % (Manual) Lymphocytes % (Manual) Monocytes % (Manual) Basophils % (Manual) Seg Neutrophils # Seg Neutrophils # Man Lymphocytes # (Manual) Monocytes # (Manual) Eosinophils # (Manual) Basophils # (Manual) PT INR D-Dimer ABG pH POC ABG pCO2 POC ABG pO2 ABG pO2 ABG HCO3 ABG O2 Saturation ABG Base Excess ABG Hemoglobin ABG Oxyhemoglobin ABG Potassium ABG Glucose Oxyhemoglobin Carboxyhemoglobin Sodium Potassium Chloride Carbon Dioxide BUN Creatinine Glucose POC Glucose 130 H 139 H 136 H Calcium Ferritin Total Bilirubin Alkaline Phosphatase Lactate Dehydrogenase Total Creatine Kinase CK-MB (CK-2) Rel Index Troponin T C-Reactive Protein Total Protein Albumin Prealbumin LDL Cholesterol Direct HDL Cholesterol Arterial Blood Glucose Arterial Blood Ionized Calcium Urine WBC (Auto) 04/03/20 04/03/20 04/04/20 16:51 23:25 05:29 WBC RBC Hgb Hct MCV MCH RDW Plt Count Lymph % (Auto) [place] % (Auto) Lymph # (Auto) [place] # (Auto) Seg Neutrophils % Seg Neuts % (Manual) Lymphocytes % (Manual) Monocytes % (Manual) Basophils % (Manual) Seg Neutrophils # Seg Neutrophils # Man Lymphocytes # (Manual) Monocytes # (Manual) Eosinophils # (Manual) Basophils # (Manual) PT INR D-Dimer ABG pH POC ABG pCO2 POC ABG pO2 ABG pO2 ABG HCO3 ABG O2 Saturation ABG Base Excess ABG Hemoglobin ABG Oxyhemoglobin ABG Potassium ABG Glucose Oxyhemoglobin Carboxyhemoglobin Sodium Potassium Chloride Carbon Dioxide BUN Creatinine Glucose POC Glucose 118 H 111 H 126 H Calcium Ferritin Total Bilirubin Alkaline Phosphatase Lactate Dehydrogenase Total Creatine Kinase CK-MB (CK-2) Rel Index Troponin T C-Reactive Protein Total Protein Albumin Prealbumin LDL Cholesterol Direct HDL Cholesterol Arterial Blood Glucose Arterial Blood Ionized Calcium Urine WBC (Auto) 04/04/20 04/04/20 04/04/20 11:47 17:41 23:05 WBC RBC Hgb Hct MCV MCH RDW Plt Count Lymph % (Auto) [place] % (Auto) Lymph # (Auto) [place] # (Auto) Seg Neutrophils % Seg Neuts % (Manual) Lymphocytes % (Manual) Monocytes % (Manual) Basophils % (Manual) Seg Neutrophils # Seg Neutrophils # Man Lymphocytes # (Manual) Monocytes # (Manual) Eosinophils # (Manual) Basophils # (Manual) PT INR D-Dimer ABG pH POC ABG pCO2 POC ABG pO2 ABG pO2 ABG HCO3 ABG O2 Saturation ABG Base Excess ABG Hemoglobin ABG Oxyhemoglobin ABG Potassium ABG Glucose Oxyhemoglobin Carboxyhemoglobin Sodium Potassium Chloride Carbon Dioxide BUN Creatinine Glucose POC Glucose 123 H 120 H 119 H Calcium Ferritin Total Bilirubin Alkaline Phosphatase Lactate Dehydrogenase Total Creatine Kinase CK-MB (CK-2) Rel Index Troponin T C-Reactive Protein Total Protein Albumin Prealbumin LDL Cholesterol Direct HDL Cholesterol Arterial Blood Glucose Arterial Blood Ionized Calcium Urine WBC (Auto) 04/05/20 04/05/20 04/05/20 05:14 12:16 18:48 WBC RBC Hgb Hct MCV MCH RDW Plt Count Lymph % (Auto) [place] % (Auto) Lymph # (Auto) [place] # (Auto) Seg Neutrophils % Seg Neuts % (Manual) Lymphocytes % (Manual) Monocytes % (Manual) Basophils % (Manual) Seg Neutrophils # Seg Neutrophils # Man Lymphocytes # (Manual) Monocytes # (Manual) Eosinophils # (Manual) Basophils # (Manual) PT INR D-Dimer ABG pH POC ABG pCO2 POC ABG pO2 ABG pO2 ABG HCO3 ABG O2 Saturation ABG Base Excess ABG Hemoglobin ABG Oxyhemoglobin ABG Potassium ABG Glucose Oxyhemoglobin Carboxyhemoglobin Sodium Potassium Chloride Carbon Dioxide BUN Creatinine Glucose POC Glucose 123 H 148 H 106 H Calcium Ferritin Total Bilirubin Alkaline Phosphatase Lactate Dehydrogenase Total Creatine Kinase CK-MB (CK-2) Rel Index Troponin T C-Reactive Protein Total Protein Albumin Prealbumin LDL Cholesterol Direct HDL Cholesterol Arterial Blood Glucose Arterial Blood Ionized Calcium Urine WBC (Auto) 04/06/20 04/06/20 04/06/20 00:47 03:26 08:24 WBC RBC Hgb Hct MCV MCH RDW Plt Count Lymph % (Auto) [place] % (Auto) Lymph # (Auto) [place] # (Auto) Seg Neutrophils % Seg Neuts % (Manual) Lymphocytes % (Manual) Monocytes % (Manual) Basophils % (Manual) Seg Neutrophils # Seg Neutrophils # Man Lymphocytes # (Manual) Monocytes # (Manual) Eosinophils # (Manual) Basophils # (Manual) PT INR D-Dimer ABG pH POC ABG pCO2 POC ABG pO2 ABG pO2 ABG HCO3 ABG O2 Saturation ABG Base Excess ABG Hemoglobin ABG Oxyhemoglobin ABG Potassium ABG Glucose Oxyhemoglobin Carboxyhemoglobin Sodium Potassium Chloride Carbon Dioxide BUN Creatinine Glucose POC Glucose 129 H 134 H 131 H Calcium Ferritin Total Bilirubin Alkaline Phosphatase Lactate Dehydrogenase Total Creatine Kinase CK-MB (CK-2) Rel Index Troponin T C-Reactive Protein Total Protein Albumin Prealbumin LDL Cholesterol Direct HDL Cholesterol Arterial Blood Glucose Arterial Blood Ionized Calcium Urine WBC (Auto) 04/06/20 04/06/20 04/06/20 11:16 16:27 23:01 WBC RBC Hgb Hct MCV MCH RDW Plt Count Lymph % (Auto) [place] % (Auto) Lymph # (Auto) [place] # (Auto) Seg Neutrophils % Seg Neuts % (Manual) Lymphocytes % (Manual) Monocytes % (Manual) Basophils % (Manual) Seg Neutrophils # Seg Neutrophils # Man Lymphocytes # (Manual) Monocytes # (Manual) Eosinophils # (Manual) Basophils # (Manual) PT INR D-Dimer ABG pH POC ABG pCO2 POC ABG pO2 ABG pO2 ABG HCO3 ABG O2 Saturation ABG Base Excess ABG Hemoglobin ABG Oxyhemoglobin ABG Potassium ABG Glucose Oxyhemoglobin Carboxyhemoglobin Sodium Potassium Chloride Carbon Dioxide BUN Creatinine Glucose POC Glucose 131 H 107 H 125 H Calcium Ferritin Total Bilirubin Alkaline Phosphatase Lactate Dehydrogenase Total Creatine Kinase CK-MB (CK-2) Rel Index Troponin T C-Reactive Protein Total Protein Albumin Prealbumin LDL Cholesterol Direct HDL Cholesterol Arterial Blood Glucose Arterial Blood Ionized Calcium Urine WBC (Auto) 04/07/20 04/07/20 04/07/20 05:24 12:41 17:40 WBC RBC Hgb Hct MCV MCH RDW Plt Count Lymph % (Auto) [place] % (Auto) Lymph # (Auto) [place] # (Auto) Seg Neutrophils % Seg Neuts % (Manual) Lymphocytes % (Manual) Monocytes % (Manual) Basophils % (Manual) Seg Neutrophils # Seg Neutrophils # Man Lymphocytes # (Manual) Monocytes # (Manual) Eosinophils # (Manual) Basophils # (Manual) PT INR D-Dimer ABG pH POC ABG pCO2 POC ABG pO2 ABG pO2 ABG HCO3 ABG O2 Saturation ABG Base Excess ABG Hemoglobin ABG Oxyhemoglobin ABG Potassium ABG Glucose Oxyhemoglobin Carboxyhemoglobin Sodium Potassium Chloride Carbon Dioxide BUN Creatinine Glucose POC Glucose 125 H 145 H 123 H Calcium Ferritin Total Bilirubin Alkaline Phosphatase Lactate Dehydrogenase Total Creatine Kinase CK-MB (CK-2) Rel Index Troponin T C-Reactive Protein Total Protein Albumin Prealbumin LDL Cholesterol Direct HDL Cholesterol Arterial Blood Glucose Arterial Blood Ionized Calcium Urine WBC (Auto) 04/07/20 04/08/20 04/08/20 23:22 05:40 11:29 WBC RBC Hgb Hct MCV MCH RDW Plt Count Lymph % (Auto) [place] % (Auto) Lymph # (Auto) [place] # (Auto) Seg Neutrophils % Seg Neuts % (Manual) Lymphocytes % (Manual) Monocytes % (Manual) Basophils % (Manual) Seg Neutrophils # Seg Neutrophils # Man Lymphocytes # (Manual) Monocytes # (Manual) Eosinophils # (Manual) Basophils # (Manual) PT INR D-Dimer ABG pH POC ABG pCO2 POC ABG pO2 ABG pO2 ABG HCO3 ABG O2 Saturation ABG Base Excess ABG Hemoglobin ABG Oxyhemoglobin ABG Potassium ABG Glucose Oxyhemoglobin Carboxyhemoglobin Sodium Potassium Chloride Carbon Dioxide BUN Creatinine Glucose POC Glucose 133 H 125 H 116 H Calcium Ferritin Total Bilirubin Alkaline Phosphatase Lactate Dehydrogenase Total Creatine Kinase CK-MB (CK-2) Rel Index Troponin T C-Reactive Protein Total Protein Albumin Prealbumin LDL Cholesterol Direct HDL Cholesterol Arterial Blood Glucose Arterial Blood Ionized Calcium Urine WBC (Auto) 04/08/20 04/09/20 04/09/20 17:43 05:47 12:22 WBC RBC Hgb Hct MCV MCH RDW Plt Count Lymph % (Auto) [place] % (Auto) Lymph # (Auto) [place] # (Auto) Seg Neutrophils % Seg Neuts % (Manual) Lymphocytes % (Manual) Monocytes % (Manual) Basophils % (Manual) Seg Neutrophils # Seg Neutrophils # Man Lymphocytes # (Manual) Monocytes # (Manual) Eosinophils # (Manual) Basophils # (Manual) PT INR D-Dimer ABG pH POC ABG pCO2 POC ABG pO2 ABG pO2 ABG HCO3 ABG O2 Saturation ABG Base Excess ABG Hemoglobin ABG Oxyhemoglobin ABG Potassium ABG Glucose Oxyhemoglobin Carboxyhemoglobin Sodium Potassium Chloride Carbon Dioxide BUN Creatinine Glucose POC Glucose 123 H 108 H 116 H Calcium Ferritin Total Bilirubin Alkaline Phosphatase Lactate Dehydrogenase Total Creatine Kinase CK-MB (CK-2) Rel Index Troponin T C-Reactive Protein Total Protein Albumin Prealbumin LDL Cholesterol Direct HDL Cholesterol Arterial Blood Glucose Arterial Blood Ionized Calcium Urine WBC (Auto) 04/09/20 04/09/20 04/10/20 17:24 23:52 06:10 WBC RBC Hgb Hct MCV MCH RDW Plt Count Lymph % (Auto) [place] % (Auto) Lymph # (Auto) [place] # (Auto) Seg Neutrophils % Seg Neuts % (Manual) Lymphocytes % (Manual) Monocytes % (Manual) Basophils % (Manual) Seg Neutrophils # Seg Neutrophils # Man Lymphocytes # (Manual) Monocytes # (Manual) Eosinophils # (Manual) Basophils # (Manual) PT INR D-Dimer ABG pH POC ABG pCO2 POC ABG pO2 ABG pO2 ABG HCO3 ABG O2 Saturation ABG Base Excess ABG Hemoglobin ABG Oxyhemoglobin ABG Potassium ABG Glucose Oxyhemoglobin Carboxyhemoglobin Sodium Potassium Chloride Carbon Dioxide BUN Creatinine Glucose POC Glucose 108 H 126 H 122 H Calcium Ferritin Total Bilirubin Alkaline Phosphatase Lactate Dehydrogenase Total Creatine Kinase CK-MB (CK-2) Rel Index Troponin T C-Reactive Protein Total Protein Albumin Prealbumin LDL Cholesterol Direct HDL Cholesterol Arterial Blood Glucose Arterial Blood Ionized Calcium Urine WBC (Auto) 04/10/20 04/10/20 04/10/20 11:27 18:11 23:24 WBC RBC Hgb Hct MCV MCH RDW Plt Count Lymph % (Auto) [place] % (Auto) Lymph # (Auto) [place] # (Auto) Seg Neutrophils % Seg Neuts % (Manual) Lymphocytes % (Manual) Monocytes % (Manual) Basophils % (Manual) Seg Neutrophils # Seg Neutrophils # Man Lymphocytes # (Manual) Monocytes # (Manual) Eosinophils # (Manual) Basophils # (Manual) PT INR D-Dimer ABG pH POC ABG pCO2 POC ABG pO2 ABG pO2 ABG HCO3 ABG O2 Saturation ABG Base Excess ABG Hemoglobin ABG Oxyhemoglobin ABG Potassium ABG Glucose Oxyhemoglobin Carboxyhemoglobin Sodium Potassium Chloride Carbon Dioxide BUN Creatinine Glucose POC Glucose 129 H 125 H 107 H Calcium Ferritin Total Bilirubin Alkaline Phosphatase Lactate Dehydrogenase Total Creatine Kinase CK-MB (CK-2) Rel Index Troponin T C-Reactive Protein Total Protein Albumin Prealbumin LDL Cholesterol Direct HDL Cholesterol Arterial Blood Glucose Arterial Blood Ionized Calcium Urine WBC (Auto) 04/11/20 04/11/20 04/11/20 05:28 11:46 23:49 WBC RBC Hgb Hct MCV MCH RDW Plt Count Lymph % (Auto) [place] % (Auto) Lymph # (Auto) [place] # (Auto) Seg Neutrophils % Seg Neuts % (Manual) Lymphocytes % (Manual) Monocytes % (Manual) Basophils % (Manual) Seg Neutrophils # Seg Neutrophils # Man Lymphocytes # (Manual) Monocytes # (Manual) Eosinophils # (Manual) Basophils # (Manual) PT INR D-Dimer ABG pH POC ABG pCO2 POC ABG pO2 ABG pO2 ABG HCO3 ABG O2 Saturation ABG Base Excess ABG Hemoglobin ABG Oxyhemoglobin ABG Potassium ABG Glucose Oxyhemoglobin Carboxyhemoglobin Sodium Potassium Chloride Carbon Dioxide BUN Creatinine Glucose POC Glucose 122 H 122 H 116 H Calcium Ferritin Total Bilirubin Alkaline Phosphatase Lactate Dehydrogenase Total Creatine Kinase CK-MB (CK-2) Rel Index Troponin T C-Reactive Protein Total Protein Albumin Prealbumin LDL Cholesterol Direct HDL Cholesterol Arterial Blood Glucose Arterial Blood Ionized Calcium Urine WBC (Auto) 04/12/20 04/12/20 04/12/20 09:07 09:07 11:39 WBC 13.1 H RBC 3.59 L Hgb 9.5 L Hct 29.8 L MCV 83 L MCH 26 L RDW 16.6 H Plt Count 591 H Lymph % (Auto) [place] % (Auto) Lymph # (Auto) [place] # (Auto) Seg Neutrophils % Seg Neuts % (Manual) 86.0 H Lymphocytes % (Manual) 7.0 L Monocytes % (Manual) Basophils % (Manual) Seg Neutrophils # Seg Neutrophils # Man 11.3 H Lymphocytes # (Manual) 0.9 L Monocytes # (Manual) Eosinophils # (Manual) Basophils # (Manual) PT INR D-Dimer ABG pH POC ABG pCO2 POC ABG pO2 ABG pO2 ABG HCO3 ABG O2 Saturation ABG Base Excess ABG Hemoglobin ABG Oxyhemoglobin ABG Potassium ABG Glucose Oxyhemoglobin Carboxyhemoglobin Sodium Potassium Chloride Carbon Dioxide 36 H BUN Creatinine < 0.2 L Glucose 132 H POC Glucose 136 H Calcium Ferritin Total Bilirubin Alkaline Phosphatase Lactate Dehydrogenase Total Creatine Kinase CK-MB (CK-2) Rel Index Troponin T C-Reactive Protein Total Protein Albumin 2.7 L Prealbumin LDL Cholesterol Direct HDL Cholesterol Arterial Blood Glucose Arterial Blood Ionized Calcium Urine WBC (Auto) 04/12/20 04/12/20 04/13/20 18:13 23:07 05:45 WBC RBC Hgb Hct MCV MCH RDW Plt Count Lymph % (Auto) [place] % (Auto) Lymph # (Auto) [place] # (Auto) Seg Neutrophils % Seg Neuts % (Manual) Lymphocytes % (Manual) Monocytes % (Manual) Basophils % (Manual) Seg Neutrophils # Seg Neutrophils # Man Lymphocytes # (Manual) Monocytes # (Manual) Eosinophils # (Manual) Basophils # (Manual) PT INR D-Dimer ABG pH POC ABG pCO2 POC ABG pO2 ABG pO2 ABG HCO3 ABG O2 Saturation ABG Base Excess ABG Hemoglobin ABG Oxyhemoglobin ABG Potassium ABG Glucose Oxyhemoglobin Carboxyhemoglobin Sodium Potassium Chloride Carbon Dioxide BUN Creatinine Glucose POC Glucose 107 H 106 H 125 H Calcium Ferritin Total Bilirubin Alkaline Phosphatase Lactate Dehydrogenase Total Creatine Kinase CK-MB (CK-2) Rel Index Troponin T C-Reactive Protein Total Protein Albumin Prealbumin LDL Cholesterol Direct HDL Cholesterol Arterial Blood Glucose Arterial Blood Ionized Calcium Urine WBC (Auto) 04/13/20 04/13/20 04/13/20 11:18 17:56 23:33 WBC RBC Hgb Hct MCV MCH RDW Plt Count Lymph % (Auto) [place] % (Auto) Lymph # (Auto) [place] # (Auto) Seg Neutrophils % Seg Neuts % (Manual) Lymphocytes % (Manual) Monocytes % (Manual) Basophils % (Manual) Seg Neutrophils # Seg Neutrophils # Man Lymphocytes # (Manual) Monocytes # (Manual) Eosinophils # (Manual) Basophils # (Manual) PT INR D-Dimer ABG pH POC ABG pCO2 POC ABG pO2 ABG pO2 ABG HCO3 ABG O2 Saturation ABG Base Excess ABG Hemoglobin ABG Oxyhemoglobin ABG Potassium ABG Glucose Oxyhemoglobin Carboxyhemoglobin Sodium Potassium Chloride Carbon Dioxide BUN Creatinine Glucose POC Glucose 133 H 110 H 114 H Calcium Ferritin Total Bilirubin Alkaline Phosphatase Lactate Dehydrogenase Total Creatine Kinase CK-MB (CK-2) Rel Index Troponin T C-Reactive Protein Total Protein Albumin Prealbumin LDL Cholesterol Direct HDL Cholesterol Arterial Blood Glucose Arterial Blood Ionized Calcium Urine WBC (Auto) 04/14/20 04/14/20 04/14/20 05:58 11:45 17:48 WBC RBC Hgb Hct MCV MCH RDW Plt Count Lymph % (Auto) [place] % (Auto) Lymph # (Auto) [place] # (Auto) Seg Neutrophils % Seg Neuts % (Manual) Lymphocytes % (Manual) Monocytes % (Manual) Basophils % (Manual) Seg Neutrophils # Seg Neutrophils # Man Lymphocytes # (Manual) Monocytes # (Manual) Eosinophils # (Manual) Basophils # (Manual) PT INR D-Dimer ABG pH POC ABG pCO2 POC ABG pO2 ABG pO2 ABG HCO3 ABG O2 Saturation ABG Base Excess ABG Hemoglobin ABG Oxyhemoglobin ABG Potassium ABG Glucose Oxyhemoglobin Carboxyhemoglobin Sodium Potassium Chloride Carbon Dioxide BUN Creatinine Glucose POC Glucose 115 H 122 H 124 H Calcium Ferritin Total Bilirubin Alkaline Phosphatase Lactate Dehydrogenase Total Creatine Kinase CK-MB (CK-2) Rel Index Troponin T C-Reactive Protein Total Protein Albumin Prealbumin LDL Cholesterol Direct HDL Cholesterol Arterial Blood Glucose Arterial Blood Ionized Calcium Urine WBC (Auto) 04/15/20 04/15/20 04/15/20 00:11 05:38 11:31 WBC RBC Hgb Hct MCV MCH RDW Plt Count Lymph % (Auto) [place] % (Auto) Lymph # (Auto) [place] # (Auto) Seg Neutrophils % Seg Neuts % (Manual) Lymphocytes % (Manual) Monocytes % (Manual) Basophils % (Manual) Seg Neutrophils # Seg Neutrophils # Man Lymphocytes # (Manual) Monocytes # (Manual) Eosinophils # (Manual) Basophils # (Manual) PT INR D-Dimer ABG pH POC ABG pCO2 POC ABG pO2 ABG pO2 ABG HCO3 ABG O2 Saturation ABG Base Excess ABG Hemoglobin ABG Oxyhemoglobin ABG Potassium ABG Glucose Oxyhemoglobin Carboxyhemoglobin Sodium Potassium Chloride Carbon Dioxide BUN Creatinine Glucose POC Glucose 120 H 109 H 123 H Calcium Ferritin Total Bilirubin Alkaline Phosphatase Lactate Dehydrogenase Total Creatine Kinase CK-MB (CK-2) Rel Index Troponin T C-Reactive Protein Total Protein Albumin Prealbumin LDL Cholesterol Direct HDL Cholesterol Arterial Blood Glucose Arterial Blood Ionized Calcium Urine WBC (Auto) 04/15/20 04/16/20 04/16/20 17:35 06:00 11:29 WBC RBC Hgb Hct MCV MCH RDW Plt Count Lymph % (Auto) [place] % (Auto) Lymph # (Auto) [place] # (Auto) Seg Neutrophils % Seg Neuts % (Manual) Lymphocytes % (Manual) Monocytes % (Manual) Basophils % (Manual) Seg Neutrophils # Seg Neutrophils # Man Lymphocytes # (Manual) Monocytes # (Manual) Eosinophils # (Manual) Basophils # (Manual) PT INR D-Dimer ABG pH POC ABG pCO2 POC ABG pO2 ABG pO2 ABG HCO3 ABG O2 Saturation ABG Base Excess ABG Hemoglobin ABG Oxyhemoglobin ABG Potassium ABG Glucose Oxyhemoglobin Carboxyhemoglobin Sodium Potassium Chloride Carbon Dioxide BUN Creatinine Glucose POC Glucose 111 H 142 H 108 H Calcium Ferritin Total Bilirubin Alkaline Phosphatase Lactate Dehydrogenase Total Creatine Kinase CK-MB (CK-2) Rel Index Troponin T C-Reactive Protein Total Protein Albumin Prealbumin LDL Cholesterol Direct HDL Cholesterol Arterial Blood Glucose Arterial Blood Ionized Calcium Urine WBC (Auto) 04/17/20 04/17/20 04/17/20 05:09 06:53 06:53 WBC 14.2 H RBC Hgb 10.1 L Hct 31.5 L MCV MCH 27 L RDW 17.2 H Plt Count 643 H Lymph % (Auto) [place] % (Auto) Lymph # (Auto) [place] # (Auto) Seg Neutrophils % Seg Neuts % (Manual) Lymphocytes % (Manual) Monocytes % (Manual) Basophils % (Manual) Seg Neutrophils # Seg Neutrophils # Man Lymphocytes # (Manual) Monocytes # (Manual) Eosinophils # (Manual) Basophils # (Manual) PT INR D-Dimer ABG pH POC ABG pCO2 POC ABG pO2 ABG pO2 ABG HCO3 ABG O2 Saturation ABG Base Excess ABG Hemoglobin ABG Oxyhemoglobin ABG Potassium ABG Glucose Oxyhemoglobin Carboxyhemoglobin Sodium Potassium Chloride 97.7 L Carbon Dioxide 38 H BUN Creatinine < 0.2 L Glucose 126 H POC Glucose 131 H Calcium Ferritin Total Bilirubin Alkaline Phosphatase Lactate Dehydrogenase Total Creatine Kinase CK-MB (CK-2) Rel Index Troponin T C-Reactive Protein Total Protein Albumin Prealbumin LDL Cholesterol Direct HDL Cholesterol Arterial Blood Glucose Arterial Blood Ionized Calcium Urine WBC (Auto) 04/17/20 04/18/20 04/18/20 11:21 00:23 04:01 WBC 15.3 H RBC Hgb 10.1 L Hct 31.9 L MCV 82 L MCH 26 L RDW 17.2 H Plt Count 665 H Lymph % (Auto) 12.9 L [place] % (Auto) Lymph # (Auto) [place] # (Auto) 1.1 H Seg Neutrophils % 78.0 H Seg Neuts % (Manual) Lymphocytes % (Manual) Monocytes % (Manual) Basophils % (Manual) Seg Neutrophils # 11.9 H Seg Neutrophils # Man Lymphocytes # (Manual) Monocytes # (Manual) Eosinophils # (Manual) Basophils # (Manual) PT INR D-Dimer ABG pH POC ABG pCO2 POC ABG pO2 ABG pO2 ABG HCO3 ABG O2 Saturation ABG Base Excess ABG Hemoglobin ABG Oxyhemoglobin ABG Potassium ABG Glucose Oxyhemoglobin Carboxyhemoglobin Sodium Potassium Chloride Carbon Dioxide BUN Creatinine Glucose POC Glucose 140 H 125 H Calcium Ferritin Total Bilirubin Alkaline Phosphatase Lactate Dehydrogenase Total Creatine Kinase CK-MB (CK-2) Rel Index Troponin T C-Reactive Protein Total Protein Albumin Prealbumin LDL Cholesterol Direct HDL Cholesterol Arterial Blood Glucose Arterial Blood Ionized Calcium Urine WBC (Auto) 04/18/20 04/18/20 04/18/20 04:01 11:29 17:30 WBC RBC Hgb Hct MCV MCH RDW Plt Count Lymph % (Auto) [place] % (Auto) Lymph # (Auto) [place] # (Auto) Seg Neutrophils % Seg Neuts % (Manual) Lymphocytes % (Manual) Monocytes % (Manual) Basophils % (Manual) Seg Neutrophils # Seg Neutrophils # Man Lymphocytes # (Manual) Monocytes # (Manual) Eosinophils # (Manual) Basophils # (Manual) PT INR D-Dimer ABG pH POC ABG pCO2 POC ABG pO2 ABG pO2 ABG HCO3 ABG O2 Saturation ABG Base Excess ABG Hemoglobin ABG Oxyhemoglobin ABG Potassium ABG Glucose Oxyhemoglobin Carboxyhemoglobin Sodium Potassium Chloride 97.0 L Carbon Dioxide 38 H BUN Creatinine < 0.2 L Glucose 117 H POC Glucose 136 H 107 H Calcium Ferritin Total Bilirubin Alkaline Phosphatase Lactate Dehydrogenase Total Creatine Kinase CK-MB (CK-2) Rel Index Troponin T C-Reactive Protein Total Protein Albumin Prealbumin LDL Cholesterol Direct HDL Cholesterol Arterial Blood Glucose Arterial Blood Ionized Calcium Urine WBC (Auto) 04/18/20 04/19/20 04/19/20 23:19 06:51 06:51 WBC 12.2 H RBC Hgb 9.8 L Hct 31.1 L MCV 82 L MCH 26 L RDW 17.2 H Plt Count 549 H Lymph % (Auto) 6.5 L [place] % (Auto) Lymph # (Auto) 0.8 L [place] # (Auto) Seg Neutrophils % 86.7 H Seg Neuts % (Manual) Lymphocytes % (Manual) Monocytes % (Manual) Basophils % (Manual) Seg Neutrophils # 10.6 H Seg Neutrophils # Man Lymphocytes # (Manual) Monocytes # (Manual) Eosinophils # (Manual) Basophils # (Manual) PT INR D-Dimer ABG pH POC ABG pCO2 POC ABG pO2 ABG pO2 ABG HCO3 ABG O2 Saturation ABG Base Excess ABG Hemoglobin ABG Oxyhemoglobin ABG Potassium ABG Glucose Oxyhemoglobin Carboxyhemoglobin Sodium Potassium Chloride 97.8 L Carbon Dioxide 38 H BUN Creatinine < 0.2 L Glucose 123 H POC Glucose 127 H Calcium Ferritin Total Bilirubin Alkaline Phosphatase Lactate Dehydrogenase Total Creatine Kinase CK-MB (CK-2) Rel Index Troponin T C-Reactive Protein Total Protein Albumin Prealbumin LDL Cholesterol Direct HDL Cholesterol Arterial Blood Glucose Arterial Blood Ionized Calcium Urine WBC (Auto) 04/19/20 04/19/20 04/20/20 13:41 18:33 05:56 WBC RBC Hgb Hct MCV MCH RDW Plt Count Lymph % (Auto) [place] % (Auto) Lymph # (Auto) [place] # (Auto) Seg Neutrophils % Seg Neuts % (Manual) Lymphocytes % (Manual) Monocytes % (Manual) Basophils % (Manual) Seg Neutrophils # Seg Neutrophils # Man Lymphocytes # (Manual) Monocytes # (Manual) Eosinophils # (Manual) Basophils # (Manual) PT INR D-Dimer ABG pH POC ABG pCO2 POC ABG pO2 ABG pO2 ABG HCO3 ABG O2 Saturation ABG Base Excess ABG Hemoglobin ABG Oxyhemoglobin ABG Potassium ABG Glucose Oxyhemoglobin Carboxyhemoglobin Sodium Potassium Chloride Carbon Dioxide BUN Creatinine Glucose POC Glucose 116 H 124 H 130 H Calcium Ferritin Total Bilirubin Alkaline Phosphatase Lactate Dehydrogenase Total Creatine Kinase CK-MB (CK-2) Rel Index Troponin T C-Reactive Protein Total Protein Albumin Prealbumin LDL Cholesterol Direct HDL Cholesterol Arterial Blood Glucose Arterial Blood Ionized Calcium Urine WBC (Auto) 04/20/20 04/20/20 04/20/20 06:28 06:28 11:46 WBC RBC Hgb 10.2 L Hct 31.5 L MCV 82 L MCH 27 L RDW 17.1 H Plt Count 546 H Lymph % (Auto) 10.0 L [place] % (Auto) 9.8 H Lymph # (Auto) 1.1 L [place] # (Auto) 1.1 H Seg Neutrophils % 78.4 H Seg Neuts % (Manual) Lymphocytes % (Manual) Monocytes % (Manual) Basophils % (Manual) Seg Neutrophils # 8.5 H Seg Neutrophils # Man Lymphocytes # (Manual) Monocytes # (Manual) Eosinophils # (Manual) Basophils # (Manual) PT INR D-Dimer ABG pH POC ABG pCO2 POC ABG pO2 ABG pO2 ABG HCO3 ABG O2 Saturation ABG Base Excess ABG Hemoglobin ABG Oxyhemoglobin ABG Potassium ABG Glucose Oxyhemoglobin Carboxyhemoglobin Sodium Potassium Chloride 97.0 L Carbon Dioxide 38 H BUN Creatinine < 0.2 L Glucose 138 H POC Glucose 130 H Calcium Ferritin Total Bilirubin Alkaline Phosphatase Lactate Dehydrogenase Total Creatine Kinase CK-MB (CK-2) Rel Index Troponin T C-Reactive Protein Total Protein Albumin Prealbumin LDL Cholesterol Direct HDL Cholesterol Arterial Blood Glucose Arterial Blood Ionized Calcium Urine WBC (Auto) 04/20/20 04/21/20 04/21/20 23:31 05:55 05:55 WBC RBC Hgb 10.0 L Hct 31.1 L MCV 82 L MCH 26 L RDW 17.0 H Plt Count 535 H Lymph % (Auto) [place] % (Auto) 9.2 H Lymph # (Auto) 1.1 L [place] # (Auto) Seg Neutrophils % 75.4 H Seg Neuts % (Manual) Lymphocytes % (Manual) Monocytes % (Manual) Basophils % (Manual) Seg Neutrophils # Seg Neutrophils # Man Lymphocytes # (Manual) Monocytes # (Manual) Eosinophils # (Manual) Basophils # (Manual) PT INR D-Dimer ABG pH POC ABG pCO2 POC ABG pO2 ABG pO2 ABG HCO3 ABG O2 Saturation ABG Base Excess ABG Hemoglobin ABG Oxyhemoglobin ABG Potassium ABG Glucose Oxyhemoglobin Carboxyhemoglobin Sodium Potassium Chloride 95.0 L Carbon Dioxide 34 H BUN Creatinine < 0.2 L Glucose 125 H POC Glucose 116 H Calcium Ferritin Total Bilirubin Alkaline Phosphatase Lactate Dehydrogenase Total Creatine Kinase CK-MB (CK-2) Rel Index Troponin T C-Reactive Protein Total Protein Albumin Prealbumin LDL Cholesterol Direct HDL Cholesterol Arterial Blood Glucose Arterial Blood Ionized Calcium Urine WBC (Auto) 04/22/20 04/22/20 04/22/20 00:01 07:45 07:45 WBC RBC Hgb 10.0 L Hct 30.7 L MCV 81 L MCH 27 L RDW 17.1 H Plt Count 490 H Lymph % (Auto) [place] % (Auto) Lymph # (Auto) [place] # (Auto) Seg Neutrophils % Seg Neuts % (Manual) 75.0 H Lymphocytes % (Manual) 11.0 L Monocytes % (Manual) 9.0 H Basophils % (Manual) Seg Neutrophils # Seg Neutrophils # Man Lymphocytes # (Manual) 0.8 L Monocytes # (Manual) Eosinophils # (Manual) Basophils # (Manual) PT INR D-Dimer ABG pH POC ABG pCO2 POC ABG pO2 ABG pO2 ABG HCO3 ABG O2 Saturation ABG Base Excess ABG Hemoglobin ABG Oxyhemoglobin ABG Potassium ABG Glucose Oxyhemoglobin Carboxyhemoglobin Sodium Potassium Chloride 96.3 L Carbon Dioxide 40 H BUN Creatinine < 0.2 L Glucose 109 H POC Glucose 110 H Calcium Ferritin Total Bilirubin Alkaline Phosphatase Lactate Dehydrogenase Total Creatine Kinase CK-MB (CK-2) Rel Index Troponin T C-Reactive Protein Total Protein Albumin Prealbumin LDL Cholesterol Direct HDL Cholesterol Arterial Blood Glucose Arterial Blood Ionized Calcium Urine WBC (Auto) 04/23/20 04/23/20 04/23/20 04:28 04:28 04:28 WBC RBC 3.64 L Hgb 9.7 L Hct 29.4 L MCV 81 L MCH 27 L RDW 17.2 H Plt Count 527 H Lymph % (Auto) [place] % (Auto) 8.9 H Lymph # (Auto) [place] # (Auto) Seg Neutrophils % Seg Neuts % (Manual) Lymphocytes % (Manual) Monocytes % (Manual) Basophils % (Manual) Seg Neutrophils # Seg Neutrophils # Man Lymphocytes # (Manual) Monocytes # (Manual) Eosinophils # (Manual) Basophils # (Manual) PT INR D-Dimer ABG pH POC ABG pCO2 POC ABG pO2 ABG pO2 ABG HCO3 ABG O2 Saturation ABG Base Excess ABG Hemoglobin ABG Oxyhemoglobin ABG Potassium ABG Glucose Oxyhemoglobin Carboxyhemoglobin Sodium Potassium Chloride 96.4 L Carbon Dioxide 32 H D BUN Creatinine < 0.2 L Glucose 134 H POC Glucose Calcium Ferritin Total Bilirubin Alkaline Phosphatase Lactate Dehydrogenase Total Creatine Kinase CK-MB (CK-2) Rel Index Troponin T 0.151 H* C-Reactive Protein Total Protein Albumin Prealbumin LDL Cholesterol Direct HDL Cholesterol 29 L Arterial Blood Glucose Arterial Blood Ionized Calcium Urine WBC (Auto) 04/23/20 06:03 WBC RBC Hgb Hct MCV MCH RDW Plt Count Lymph % (Auto) [place] % (Auto) Lymph # (Auto) [place] # (Auto) Seg Neutrophils % Seg Neuts % (Manual) Lymphocytes % (Manual) Monocytes % (Manual) Basophils % (Manual) Seg Neutrophils # Seg Neutrophils # Man Lymphocytes # (Manual) Monocytes # (Manual) Eosinophils # (Manual) Basophils # (Manual) PT INR D-Dimer ABG pH POC ABG pCO2 POC ABG pO2 ABG pO2 ABG HCO3 ABG O2 Saturation ABG Base Excess ABG Hemoglobin ABG Oxyhemoglobin ABG Potassium ABG Glucose Oxyhemoglobin Carboxyhemoglobin Sodium Potassium Chloride Carbon Dioxide BUN Creatinine Glucose POC Glucose 132 H Calcium Ferritin Total Bilirubin Alkaline Phosphatase Lactate Dehydrogenase Total Creatine Kinase CK-MB (CK-2) Rel Index Troponin T C-Reactive Protein Total Protein Albumin Prealbumin LDL Cholesterol Direct HDL Cholesterol Arterial Blood Glucose Arterial Blood Ionized Calcium Urine WBC (Auto) Allied health notes reviewed: nursing
[2020-04-23] MEDS: ENOXAPARIN 40 MG/0.4 ML INJ SUB-Q SCH (21:42)
[2020-04-23] MEDS: SENNOSIDES 8.6 MG TAB PO SCH (21:45)
[2020-04-23] MEDS: ZOLPIDEM 5 MG TAB PO PRN (21:45)
[2020-04-24] MEDS: MORPHINE 2 MG/1 ML INJ IV PRN ×4 (01:32→22:12)
[2020-04-24] MEDS ORDERED: NITROGLYCERIN 0.4 MG TAB SUBL SL PRN (02:03)
[2020-04-24] MEDS: ALPRAZolam 0.5 MG TAB PO PRN ×3 (02:08→19:45)
[2020-04-24 05:59] LABS: Hematocrit 28.9 % (35.5-45.6); Hemoglobin 9.5 gm/dl (11.8-15.2); Mean Corpuscular HGB Conc 33 % (32-34); Mean Corpuscular Volume 81 fl (84-94); Platelet Count 462 K/mm3 (140-440); Red Blood Count 3.56 M/mm3 (3.65-5.03); Red Cell Distribution Width 17.4 % (13.2-15.2)
[2020-04-24 06:04] LABS: Blood Urea Nitrogen 17 mg/dL (9-20); Calcium 9.1 mg/dL (8.4-10.2); Hemolysis Index 1
[2020-04-24 06:06] LABS: BUN/Creatinine Ratio 85
[2020-04-24] MEDS: MAGIC MOUTHWASH 30ML PO SCH ×3 (07:33→19:45)
[2020-04-24] MEDS: GLYCOPYRROLATE 1 MG TAB PO SCH ×3 (07:33→19:45)
[2020-04-24 08:23] LABS: Total Cells Counted 100
[2020-04-24 08:24] LABS: Anisocytosis 1+; Platelet Estimate Consistent w Auto
[2020-04-24] MEDS: DOCUSATE SODIUM 100 MG/10 ML ORAL LIQD FEEDTUBE SCH ×2 (09:24→22:10)
[2020-04-24] MEDS: LANSOPRAZOLE 30 MG SOLUTAB FEEDTUBE SCH (09:24)
[2020-04-24] MEDS: METOPROLOL TARTRATE 25 MG TAB PO SCH ×2 (09:24→22:10)
[2020-04-24] MEDS: PREGABALIN 75 MG CAP PO SCH ×2 (09:25→22:10)
[2020-04-24] MEDS: BACLOFEN 10 MG TAB PO SCH ×2 (09:25→22:10)
[2020-04-24] MEDS: TAMSULOSIN 0.4 MG CAP PO SCH (09:25)
[2020-04-24] MEDS: LIDOCAINE 5% 1 EACH PATCH TD SCH (09:26)
--- NOTE | 2020-04-24 09:41 | Progress Note ---
Assessment and Plan Assessment and plan: --Acute hypoxic hypercapnic respiratory failure; S/p tracheostomy on ventilatory support etiology secondary to sepsis, ALS, multifocal pneumonia (Covid negative). Pulmonary following --ALS --Oral thrush Nystatin/Magic mouthwash swish and spit --Constipation; Patient already received Dulcolax suppository and Colace Received milk of magnesia, with relief --History of ALS - Stable --Elevated D-dimers; imaging studies negative for PE and DVT --Bilateral pneumonia; probably community-acquired Completed the treatment, continue supportive care --Sepsis secondary to pneumonia; completed the treatment resolved --Elevated troponin non-ST elevation [place] type II Continue current management --Febrile illness; resolved ,secondary to pneumonia Complete antibiotics , resolved --DVT prophylaxis; Lovenox. 02/25/2020. CTA of the chest reveals no PE but does illustrate the bilateral pneumonia. Doppler ultrasound also negative for DVT. Blood cultures are pending. Await COVID-19 testing. Patient currently requiring BiPAP IPAP 24/EPAP 6 with FiO2 of 25%. Continue O2 and BiPAP as clinically indicated. ID and pulmonary consulted. 02/26/2020. Blood cultures are negative x48 hours and Covid testing negative as well. Continue antibiotics per ID recommendations for community-acquired bilate ral pneumonia. Cardiology consultation for elevated troponin. Check echocardiogram. 02/27/2020. Events of yesterday noted with asystole following V. fib arrest. Patient currently on AC mode rate 20, tidal volume 400, FiO2 50% and a PEEP of 6. Follow-up echocardiogram for elevated troponin. Cardiology suspects NSTEMI Type 2 in the setting of acute resp failure. Chest CTA and BLE Dopplers neg. we will discontinue Decadron given the Covid PCR is negative. 02/28/2020. I spoke with the sister Felisa Eli who is the power of securities attorney regarding advanced directives and she instructed me that she would like to continue with aggressive care at this time. I informed her of the guarded prognosis and high mortality/morbidity and she voiced understanding. Patient currently with AC mode ventilation rate 18, tidal volume 400, FiO2 40% and a PEEP of 6. Continue antibiotics for pneumonia. ID previously consulted. Also consult neurology with regards to ALS. 02/29/2020; patient is intubated and on CPAP patient is alert and oriented. Patient has ALS. Dr. Álvarez spoke with his sister and she wants aggressive care. Continue antibiotics for pneumonia. Neurology consulted for ALS. Progno sis poor 03/01/2020; patient is intubated and on CPAP, patient is alert and oriented. I spoke with his 2 sisters about the management plan. 03/02/2020; patient is intubated and on CPAP. Patient was alert and oriented. I spoke with Dr. mohr and he thinks patient may need mechanical ventilat ion, likely his disease progressed. Dr. Flowers did debridement this morning. 03/03/2020; patient is intubated and on CPAP, patient was on trilogy and BiPAP at home. Patient has ALS. on spontaneous breathing trial. Patient is alert and oriented but quadriplegic. Patient has severe bilateral pneumonia and is on cefepime and Vanco, ID is following. Patient has sacral decubitus ulcer and debridement was done by Dr. Flowers and there is no osteomyelitis. 03/05. Patient still on broad-spectrum antibiotics. Status post sacral decubitus ulcer debridements-no osteomyelitis. Patient is on AC 25/400/30% PEEP 5. No blood gas results today. 03/06. Plan for tracheostomy by surgery. Still remains intubated. Labs reviewed-sodium 150. Started on free water 200 every 8hr. trend sodium. 03/07: s/p trach placement today, patient placed back on mechanical ventilation with trach. Plan to resume tube feeding with NG tube. Continue to monitor vitals, monitor BMP. 03/08: Patient noted to have distended abdomen with low urinary output. Obtain bladder scan rule out urine retention, UA and urine culture, continue to follow clinically. 03/09: Patient noted to have low blood pressure with SBP as low as 70s. Ordered for 500 mils normal saline bolus. CT abdomen showed bladder outlet obstruction, urology consulted. 03/10: placed on drake by urology o/n, improved urine outpt. cont to monitor BMP. resuded TF - cont free water with TF. wean off from vent as tolerated. 03/11: Vitals stable. cont TF, wean off from vent as tolerated. start on 1/2 NS for hypernatremia - follow BMP 03/12: wean off vent as tolerated, plan for speech eval, cont Tf for now, cont iv fluid 03/13: unable to wean off from vent, unable to do speech therapy eval. will need PEG tube, cont supportive care for now, cont NG tube feeding 03/14: consulted GI for PEg placemnet, cont supportive care. remains on vent at night 03/15: Discussed with GI, plan for PEG tube placement possibly tomorrow. Continue supportive care and wean off from vent as tolerated. Hold Lovenox dose tonight. 03/16: family didnot consent for PEG placement yesterday. I spoke with the daughter today and she is now agreeable for PEG tube. I explained the necessity of the procedure with RN to the patient also and he nodded started on tube feeding, for the procedure. will cont supportive care. planned for PEG tube placement tomorrow. 03/17: s/p PEG placement today, patient tolerated well, cont supportive care 03/18: Started on tube feeding with new PEG tube, continue to wean off vent as tolerated 03/19: cont to monitor with supportive care, wean off vent as tolerated 03/20: Continue to wean off vent as tolerated -but failing weaning trial. Still requiring vent support at night. Currently on PEG tube for tube feed. 03/21. Pt with PSV trials with FiO@ 30%, PEEP 6, PS 10. Currently on PEG tube for tube feed. 03/22/2020. Continue PSV trials per pulmonary. Continue bronchodilators. Patient tolerating tube feedings. Continue Robinul for secretion control. 03/23/2020. Continue PSV trials per pulmonary. Continue bronchodilators. Continue Scopolamine and Robinul for secretion control. Trach care/airway management. Mobility protocols for pressure ulcer prophylaxis. LTAC evaluation per case management 03/24/2020. Continue PSV trials with current settings pressure support 10, PEEP 6 and FiO2 30%. Continue bronchodilators/nebulizer. Continue Scopolamine and Robinul for secretion control. Trach care/airway management. Mobility protocols for pressure ulcer prophylaxis. LTAC evaluation per case management 03/25/2020. Pulmonary to proceed with T-piece trials today. Continue bronchodi lators/nebulizer. Continue Scopolamine and Robinul for secretion control. Trach care/airway management. Mobility protocols for pressure ulcer prophylaxis. 03/26/2020. Patient currently with PSV 10/6 at FiO2 of 30%. Continue weaning and T-piece trials per protocol. Continue bronchodilators/nebulizer. Continue Scopolamine and Robinul for secretion control. Trach care/airway management. Mobility protocols for pressure ulcer prophylaxis. Continue tube feeding with aspiration precautions. 03/27/2020. Patient currently with PSV 01/31 at FiO2 of 30%. Continue weaning and T-piece trials per protocol. Continue bronchodilators/nebulizer. Continue Scopolamine and Robinul for secretion control. Trach care/airway management. Mobility protocols for pressure ulcer prophylaxis. Continue tube feeding with aspiration precautions. 03/28. Had temp 100.7F. He has been off antibiotics. Will send blood culture, ua, urine culture and chest xray. Had chest pain overnight and trop was elevated as well. Cardiology to evaluate 03/29. Has back pain due to position. He mentions his chest pain is positional. Has no other complaints. Still on mechanical ventilation 03/30. No chest pain today. Labs reviewed. Discussed chest pain with cardiology and team advised no further work up at this time. Can follow up with cardiology in the office after hospitalization 03/31. Lidocaine patch for lower back pain. 04/01. Discharge planning underway. CM notes reviewed. Discussed with daughter 04/02 - . CM trying to arrange discharge. Continue PSV trials. Discussed with patients significant other 04/04/2020; CM is working for discharge arrangement. Continue PSV trials. 04/05/2020; patient was seen and evaluated this morning and no change from baseline. Continue with PSV trials. Follow with tribunal member for discharge planning. 04/06/2020;patient was seen and evaluated this morning and no change from baseline. Continue with PSV trials. Follow with tribunal member for discharge planning. 04/07/2020; patient was seen and evaluated this morning and no change from baseline. Continue with PSV trials. Follow with tribunal member for discharge planning. 04/08/2020; patient is vent dependent. Discharge is per tribunal member. 04/09/2020 patient is vent dependent, possible LTAC placement 04/10/2020; tracheostomy on vent, vent dependent pending LTAC placement 04/11/2020; clinically no change, tracheostomy on ventilatory support, wean as tolerated, awaiting placement 04/12/2020; remains on ventilatory support, unable to wean, patient wants to see a speech therapist for sound box However we cannot try that as long as he is on ventilatory support, once he is weaned off vent We will consult speech therapist, plan of care reviewed with the patient and his nurse 04/14/2020; clinically no change, on ventilatory support, complains of constipation, milk of magnesia Closely monitor the patient and adjust the management as needed 04/15/2020; patient has some oral thrush on the tongue, will give Magic mouthwash/nystatin swish and spit Wean off vent as tolerated 04/16 patient is alert and oriented, unable to comprehend what he is trying to tell but appears to complain of some pain, no acute events overnight, all interdisciplinary notes reviewed. Waiting for LTAC versus snf f acility placement 04/17/2020. Continue supportive care with mechanical ventilation. Patient currently on AC mode rate 10, tidal volume 400 FiO2 30% with a PEEP of 6. Discharge planning per case management. 04/18/2020. Patient remains on mechanical ventilation AC mode rate 10, tidal volume 400, FiO2 30% and PEEP of 6. Continue spontaneous breathing trials as tolerated. Previously, patient was considered for discharge home with skilled staff providing care for 12 hours 7 days/week. Continue discussed with case management discharge planning. 04/19/20. Patient remains on mechanical ventilation AC mode rate 10, tidal volume 400, FiO2 30% and PEEP of 6. Continue spontaneous breathing trials as tolerated. 04/20/2020. Patient remains on mechanical ventilation AC mode rate 10, tidal volume 400, FiO2 30% and PEEP of 6. Continue spontaneous breathing trials as tolerated. 04/21/2020. Patient remains on mechanical ventilation AC mode rate 10, tidal volume 400, FiO2 30% and PEEP of 6. Continue tracheostomy care, secretion control and airway management. Continue spontaneous breathing trials as tolerated. 04/22/2020. Patient remains on mechanical ventilation AC mode rate 10, tidal volume 400, FiO2 30% and PEEP of 6. Continue tracheostomy care, secretion control and airway management. Continue spontaneous breathing trials as tolerated. 04/23/2020. Patient on mechanical ventilation AC mode rate 18, tidal volume 450, FiO2 30% and PEEP of 6. Continue tracheostomy care, secretion control and airway management. Continue spontaneous breathing trials as tolerated. Continue Robinul and scopolamine for secretions. Continue baclofen. 04/16/2020. Patient remains on AC mode ventilation rate 10, tidal volume 400, FiO2 30% and PEEP of 6. Continue tracheostomy care, secretion control and airway management. Continue spontaneous breathing trials as tolerated. Continue Robinul and scopolamine for secretions. Continue baclofen. Continue Xanax for anxiety and Ambien for sleep. Await case management follow-up with regards to discharge planning. The high probability of a clinically significant, sudden or life threatening deterioration of the [cardiac and respiratory] system(s) required my full and direct attention, intervention and personal management. The aggregate critical care time was [31] minutes. This time is in addition to time spent performing reported procedures but includes the following: [x] Data Review and interpretation [x] Patient assessment and monitoring of vital signs [x] Documentation [x] Medication orders and management History Interval history: 59-year-old male patient with significant past medical history of ALS, presented to ED with worsening shortness of breath since the morning [employer]. Patient was on a trilogy machine for breathing 18/11. EMS arrived, patient had O2 sats in the 80s. EMS attempted to place patient on their CPAP machine, however patient did not tolerate. Patient was admitted to the ICU with diagnosis of acute hypoxic respiratory failure and placed on BiPAP. Patient initially tolerated but later deteriorated with respiratory status. CTA chest showed no PE but significant for bilateral pneumonia. Doppler ultrasound also negative for DVT. COVID-19 test ordered. Due to persistent hypoxia, patient was intubated on 02/26/2020 at 1500. Patient now on mechanical ventilation in the ICU s/p trach placement and now unable to wean off from the mechanical ventilation. Patient now status post PEG placement for tube feeding. Pending long-term placement -LTAC versus SNF Hospitalist Physical - Constitutional Vitals: Temp Pulse Resp BP Pulse Ox 97.7 F 99 H 11 L 110/72 100 04/24/20 08:00 04/24/20 09:24 04/24/20 08:00 04/24/20 09:24 04/24/20 08:00 General appearance: Present: no acute distress, cachectic - EENT Eyes: Present: PERRL, EOM intact ENT: hearing intact, clear oral mucosa, dentition normal - Neck Neck: Present: supple, normal ROM - Respiratory Respiratory effort: normal Respiratory: bilateral: CTA - Cardiovascular Rhythm: regular Heart Sounds: Present: S1 & S2. Absent: gallop, rub - Extremities Extremities: no ischemia, No edema, Full ROM - Abdominal General gastrointestinal: soft, non-tender, non-distended, normal bowel sounds - Integumentary Integumentary: Present: clear, warm, dry - Neurologic Neurologic: CNII-XII intact, moves all extremities HEART Score - HEART Score Troponin: Troponin T 0.181 ng/mL (0.00-0.029) H* 04/24/20 05:28 Results - Labs CBC & Chem 7: 04/24/20 05:28 04/24/20 05:28 Labs: Laboratory Last Values WBC 8.5 K/mm3 (4.5-11.0) 04/24/20 05:28 RBC 3.56 M/mm3 (3.65-5.03) L 04/24/20 05:28 Hgb 9.5 gm/dl (11.8-15.2) L 04/24/20 05:28 Hct 28.9 % (35.5-45.6) L 04/24/20 05:28 MCV 81 fl (84-94) L 04/24/20 05:28 MCH 27 pg (28-32) L 04/24/20 05:28 MCHC 33 % (32-34) 04/24/20 05:28 RDW 17.4 % (13.2-15.2) H 04/24/20 05:28 Plt Count 462 K/mm3 (140-440) H 04/24/20 05:28 Lymph % (Auto) 23.6 % (13.4-35.0) 04/23/20 04:28 Union % (Auto) 8.9 % (0.0-7.3) H 04/23/20 04:28 Eos % (Auto) 2.1 % (0.0-4.3) 04/23/20 04:28 Baso % (Auto) 0.7 % (0.0-1.8) 04/23/20 04:28 Lymph # (Auto) 1.9 K/mm3 (1.2-5.4) 04/23/20 04:28 Union # (Auto) 0.7 K/mm3 (0.0-0.8) 04/23/20 04:28 Eos # (Auto) 0.2 K/mm3 (0.0-0.4) 04/23/20 04:28 Baso # (Auto) 0.1 K/mm3 (0.0-0.1) 04/23/20 04:28 Add Manual Diff Complete 04/24/20 05:28 Total Counted 100 04/24/20 05:28 Seg Neutrophils % 64.7 % (40.0-70.0) 04/23/20 04:28 Seg Neuts % (Manual) 80.0 % (40.0-70.0) H 04/24/20 05:28 Band Neutrophils % 1.0 % 04/22/20 07:45 Lymphocytes % (Manual) 15.0 % (13.4-35.0) 04/24/20 05:28 Reactive Lymphs % (Man) 1.0 % 04/22/20 07:45 Monocytes % (Manual) 5.0 % (0.0-7.3) 04/24/20 05:28 Eosinophils % (Manual) 2.0 % (0.0-4.3) 04/22/20 07:45 Basophils % (Manual) 1.0 % (0.0-1.8) 04/22/20 07:45 Metamyelocytes % 3.0 % 04/12/20 09:07 Myelocytes % 0 % 03/28/20 10:28 Promyelocytes % 0 % 03/28/20 10:28 Blast Cells % 0 % 03/28/20 10:28 Nucleated RBC % Not Reportable 04/24/20 05:28 Seg Neutrophils # 5.2 K/mm3 (1.8-7.7) 04/23/20 04:28 Seg Neutrophils # Man 6.8 K/mm3 (1.8-7.7) 04/24/20 05:28 Band Neutrophils # 0.0 K/mm3 04/24/20 05:28 Lymphocytes # (Manual) 1.3 K/mm3 (1.2-5.4) 04/24/20 05:28 Abs React Lymphs (Man) 0.0 K/mm3 04/24/20 05:28 Monocytes # (Manual) 0.4 K/mm3 (0.0-0.8) 04/24/20 05:28 Eosinophils # (Manual) 0.0 K/mm3 (0.0-0.4) 04/24/20 05:28 Basophils # (Manual) 0.0 K/mm3 (0.0-0.1) 04/24/20 05:28 Metamyelocytes # 0.0 K/mm3 04/24/20 05:28 Myelocytes # 0.0 K/mm3 04/24/20 05:28 Promyelocytes # 0.0 K/mm3 04/24/20 05:28 Blast Cells # 0.0 K/mm3 04/24/20 05:28 WBC Morphology Not Reportable 04/24/20 05:28 Hypersegmented Neuts Not Reportable 04/24/20 05:28 Hyposegmented Neuts Not Reportable 04/24/20 05:28 Hypogranular Neuts Not Reportable 04/24/20 05:28 Smudge Cells Not Reportable 04/24/20 05:28 Toxic Granulation Not Reportable 04/24/20 05:28 Toxic Vacuolation Not Reportable 04/24/20 05:28 Dohle Bodies Not Reportable 04/24/20 05:28 Pelger-Huet Anomaly Not Reportable 04/24/20 05:28 Robert Rods Not Reportable 04/24/20 05:28 Platelet Estimate Consistent w auto 04/24/20 05:28 Clumped Platelets Not Reportable 04/24/20 05:28 Plt Clumps, EDTA Not Reportable 04/24/20 05:28 Large Platelets Not Reportable 04/24/20 05:28 Giant Platelets Not Reportable 04/24/20 05:28 Platelet Satelliting Not Reportable 04/24/20 05:28 Plt Morphology Comment Not Reportable 04/24/20 05:28 RBC Morphology Not Reportable 04/24/20 05:28 Dimorphic RBCs Not Reportable 04/24/20 05:28 Polychromasia Not Reportable 04/24/20 05:28 Hypochromasia Not Reportable 04/24/20 05:28 Poikilocytosis Not Reportable 04/24/20 05:28 Anisocytosis 1+ 04/24/20 05:28 Microcytosis Not Reportable 04/24/20 05:28 Macrocytosis Not Reportable 04/24/20 05:28 Spherocytes Not Reportable 04/24/20 05:28 Pappenheimer Bodies Not Reportable 04/24/20 05:28 Sickle Cells Not Reportable 04/24/20 05:28 Target Cells Not Reportable 04/24/20 05:28 Stomatocytes Few 03/17/20 04:40 Tear Drop Cells Not Reportable 04/24/20 05:28 Ovalocytes Not Reportable 04/24/20 05:28 Helmet Cells Not Reportable 04/24/20 05:28 Gregory-Hemingford Bodies Not Reportable 04/24/20 05:28 Sh[place]imar Rings Not Reportable 04/24/20 05:28 Sterling Cells Not Reportable 04/24/20 05:28 Bite Cells Not Reportable 04/24/20 05:28 Crenated Cell Not Reportable 04/24/20 05:28 Elliptocytes Not Reportable 04/24/20 05:28 Acanthocytes (Spur) Not Reportable 04/24/20 05:28 Rouleaux Not Reportable 04/24/20 05:28 Hemoglobin C Crystals Not Reportable 04/24/20 05:28 Schistocytes Not Reportable 04/24/20 05:28 Malaria parasites Not Reportable 04/24/20 05:28 Colton Bodies Not Reportable 04/24/20 05:28 Hem Pathologist Commnt No 04/24/20 05:28 PT 15.6 Sec. (12.2-14.9) H 02/24/20 09:19 INR 1.21 (0.87-1.13) H 02/24/20 09:19 APTT 25.4 Sec. (24.2-36.6) 02/24/20 09:19 D-Dimer 1311.96 ng/mlDDU (0-234) H 02/24/20 09:19 ABG pH 7.371 (7.320-7.450) 03/08/20 12:34 POC ABG pCO2 63.1 mmHg (32.0-48.0) H 03/08/20 12:34 ABG pCO2 60.1 mm Hg 03/06/20 04:34 POC ABG pO2 90.5 mmHg (83-108) 03/08/20 12:34 ABG pO2 88.6 mm Hg (80.0-90.0) 03/06/20 04:34 POC ABG HCO3 35.7 03/08/20 12:34 ABG HCO3 37.9 mmol/L (20.0-26.0) H 03/06/20 04:34 ABG O2 Saturation 97.0 % (95.0-99.0) 03/06/20 04:34 ABG O2 Content 14.3 (0.0-44) 03/06/20 04:34 POC ABG Base Excess 8.7 03/08/20 12:34 ABG Base Excess 11.4 mmol/L (-2.0-3.0) H 03/06/20 04:34 ABG Hemoglobin 10.9 (12.0-17.5) L 03/08/20 12:34 ABG Oxyhemoglobin 95.9 (94-98) 03/08/20 12:34 ABG Carboxyhemoglobin 1.7 % (0.0-5.0) 03/06/20 04:34 ABG Methemoglobin 0.3 (0.0-1.5) 03/08/20 12:34 ABG Sodium 143.6 mmol/L (136.0-145.0) 03/08/20 12:34 ABG Potassium 3.8 mmol/L (3.40-4.50) 03/08/20 12:34 ABG Chloride 102.0 mmol/L (98-107) 03/08/20 12:34 ABG Glucose 176 mg/dL (65-95) H 03/08/20 12:34 Oxyhemoglobin 94.7 % (95.0-99.0) L 03/06/20 04:34 Carboxyhemoglobin 0.7 (0.5-1.5) 03/08/20 12:34 FiO2 30 03/08/20 12:34 Sodium 137 mmol/L (137-145) 04/24/20 05:28 Potassium 4.3 mmol/L (3.6-5.0) 04/24/20 05:28 Chloride 96.1 mmol/L (98-107) L 04/24/20 05:28 Carbon Dioxide 40 mmol/L (22-30) H D 04/24/20 05:28 Anion Gap 5 mmol/L 04/24/20 05:28 BUN 17 mg/dL (9-20) 04/24/20 05:28 Creatinine < 0.2 mg/dL (0.8-1.3) L 04/24/20 05:28 Estimated GFR > 60 ml/min 04/24/20 05:28 BUN/Creatinine Ratio 85 % 04/24/20 05:28 Glucose 115 mg/dL (75-100) H 04/24/20 05:28 POC Glucose 109 mg/dL (70-105) H 04/24/20 05:33 Lactic Acid 1.00 mmol/L (0.7-2.0) 02/24/20 12:07 Calcium 9.1 mg/dL (8.4-10.2) 04/24/20 05:28 Phosphorus 3.30 mg/dL (2.5-4.5) 03/29/20 14:35 Magnesium 1.90 mg/dL (1.7-2.3) 04/12/20 09:07 Ferritin 1715.0 ng/mL (30.0-300.0) H 02/24/20 10:01 Total Bilirubin 0.20 mg/dL (0.1-1.2) 04/12/20 09:07 AST 15 units/L (5-40) 04/12/20 09:07 ALT 15 units/L (7-56) 04/12/20 09:07 Alkaline Phosphatase 62 units/L (35-129) 04/12/20 09:07 Lactate Dehydrogenase 303 units/L (91-180) H 02/24/20 09:19 Total Creatine Kinase 47 units/L (55-170) L 03/28/20 17:17 CK-MB (CK-2) 2.2 ng/mL (0.0-4.0) 03/28/20 17:17 CK-MB (CK-2) Rel Index 4.6 (0-4) H 03/28/20 17:17 Troponin T 0.181 ng/mL (0.00-0.029) H* 04/24/20 05:28 C-Reactive Protein 4.70 mg/dL (0.00-1.30) H 02/28/20 11:05 NT-Pro-B Natriuret Pep 48.30 pg/mL (0-900) 02/24/20 09:19 Total Protein 6.7 g/dL (6.3-8.2) 04/12/20 09:07 Albumin 2.7 g/dL (3.9-5) L 04/12/20 09:07 Albumin/Globulin Ratio 0.7 % 04/12/20 09:07 Prealbumin 0.090 g/L (0.200-0.400) L 02/28/20 12:54 Triglycerides 62 mg/dL (2-149) 04/23/20 04:28 Cholesterol 104 mg/dL (50-199) 04/23/20 04:28 LDL Cholesterol Direct 66 mg/dL (50-130) 04/23/20 04:28 HDL Cholesterol 29 mg/dL (40-59) L 04/23/20 04:28 Cholesterol/HDL Ratio 3.58 % 04/23/20 04:28 Procalcitonin < 0.05 ng/mL (<0.15) 03/28/20 17:12 Arterial Blood Glucose 176 mg/dL (65-95) H 03/08/20 12:34 Arterial Blood Ionized Calcium 4.5 mg/dL (4.6-5.3) L 03/08/20 12:34 Urine Color Yellow (Yellow) 03/28/20 11:36 Urine Turbidity Hazy (Clear) 03/28/20 11:36 Urine pH 5.0 (5.0-7.0) 03/28/20 11:36 Ur Specific Magna 1.026 (1.003-1.030) 03/28/20 11:36 Urine Protein 100 mg/dl mg/dL (Negative) 03/28/20 11:36 Urine Glucose (UA) Neg mg/dL (Negative) 03/28/20 11:36 Urine Ketones Neg mg/dL (Negative) 03/28/20 11:36 Urine Blood Neg (Negative) 03/28/20 11:36 Urine Nitrite Neg (Negative) 03/28/20 11:36 Urine Bilirubin Neg (Negative) 03/28/20 11:36 Urine Urobilinogen 4.0 mg/dL (<2.0) 03/28/20 11:36 Ur Leukocyte Esterase Mod (Negative) 03/28/20 11:36 Urine WBC (Auto) 39.0 /HPF (0.0-6.0) H 03/28/20 11:36 Urine RBC (Auto) 16.0 /HPF (0.0-6.0) 03/28/20 11:36 U Epithel Cells (Auto) < 1.0 /HPF (0-13.0) 03/08/20 08:57 Urine Bacteria (Auto) 2+ /HPF (Negative) 03/28/20 11:36 Urine Mucus 3+ /HPF 03/28/20 11:36 Urine Yeast (Budding) 2+ /HPF 03/28/20 11:36 Vancomycin Trough 8.0 ug/mL (5.0-20.0) 03/04/20 08:59 Coronavirus (PCR) Negative (Negative) 02/25/20 09:03 - Diagnostic Impressions Diagnostic Impressions: Echocardiogram 02/26/20 10:41 Transthoracic Echocardiogram Indication: Elevated Trop BP: 116/75 HR: 85 Conclusions *Global left ventricular wall motion and contractility are within normal limits. *The estimated ejection fraction is 50-55%. *Abnormal left ventricular diastolic filling is observed, consistent with impaired relaxation. *There is no pericardial effusion. Findings Left Ventricle: The left ventricular chamber size is normal. Global left ventricular wall motion and contractility are within normal limits. Global left ventricular systolic function is normal. The estimated ejection fraction is 50-55%. Abnormal left ventricular diastolic filling is observed, consistent with impaired relaxation. Left Atrium: The left atrial chamber size is normal. Right Ventricle: The right ventricular cavity size is normal. Right Atrium: The right atrial cavity size is normal. Aortic Valve: Mild aortic leaflet calcification is visualized. There is no evidence of aortic regurgitation. Mitral Valve: The mitral valve leaflets are mildly thickened. There is no evidence of mitral regurgitation. Tricuspid Valve: The tricuspid valve leaflets are normal. There is trace tricuspid regurgitation. The right ventricular systolic pressure is calculated at 29 mmHg. Pulmonic Valve: The pulmonic valve is not well visualized. Pericardium: There is no pericardial effusion. Aorta: The aorta appears normal. Venous: The inferior vena cava is dilated. There is less than 50% respiratory change in the inferior vena cava dimension. Measurements Chambers 2D Name Value Normal Range IVSd (2D) 0.97 cm (0.6 - 1.1) LVPWd (2D) 0.93 cm (0.6 - 1.1) LVIDd (2D) 4 cm (3.7 - 5.6) LVIDs (2D) 2.73 cm (2 - 3.8) LV FS (2D) 31.67 % - EF Teichholz (2D) 60.23 % - Ao root diameter (2D) 3.51 cm (2 - 3.7) Volumes/Mass Name Value Normal Range LA ESV SP 4CH (A/L) 8.43 ml - LA ESV SP 2CH (A/L) 18.89 ml - LA ESV BP (A/L) 13.02 ml - LA ESV BP (A/L) index 8.8 ml/m2 - LA ESV SP 4CH (MOD) 7.22 ml - LA ESV SP 2CH (MOD) 18.15 ml - LA ESV BP (MOD) 11.47 ml - LA ESV BP (MOD) index 7.75 ml/m2 - Diastolic/Systolic Function Name Value Normal Range MV E-wave Vmax 0.51 m/sec - MV deceleration time 180.22 msec - MV A-wave Vmax 0.62 m/sec - MV E:A ratio 0.82 ratio - Aortic Valve Name Value Normal Range AV Vmax 1.17 m/sec - AV VTI 19.71 cm - AV peak gradient 5.44 mmHg - AV mean gradient 3.38 mmHg - LVOT diameter 2.26 cm - LVOT Vmax 0.89 m/sec - LVOT VTI 13.72 cm - LVOT peak gradient 3.17 mmHg - LVOT mean gradient 1.67 mmHg - SV LVOT 55.03 ml - SHARAD (continuity Vmax) 3.06 cm2 - SHARAD (continuity VTI) 2.79 cm2 - Tricuspid Valve Name Value Normal Range TR Vmax 2.3 m/sec - TR peak gradient 21 mmHg - RAP 8 mmHg - RVSP 29 mmHg - IVC diameter 2.59 cm (1.2 - 2.3) Pulmonic Valve/Qp:Qs Name Value Normal Range PV acceleration time 68.51 msec - Drake/IV: Voiding Method Indwelling Catheter IV Catheter Type [Right Wrist] INT / Saline Lock IV Catheter Type [Left Hand] Peripheral IV IV Catheter Type [Right Hand] Peripheral IV IV Catheter Type [Left Wrist] Peripheral IV IV Catheter Type [Right Peripheral IV Forearm] IV Catheter Type [Right Triple Lumen Cath Internal Jugular] IV Catheter Type [Left Forearm INT / Saline Lock ] IV Catheter Type [Right Triple Lumen Cath Femoral] IV Catheter Type [Right INT / Saline Lock Antecubital] Active Medications - Current Medications Current Medications: Generic Name Dose Route Start Last Admin Trade Name Freq PRN Reason Stop Dose Admin Acetaminophen 650 mg 02/24/20 15:13 04/21/20 21:32 Acetaminophen 325 Mg Tab PO 650 mg Q4H PRN Administration Pain, Mild (1-3) Albuterol 2.5 mg 02/24/20 15:13 Albuterol 2.5 Mg/3 Ml Nebu IH Q4HRT PRN Shortness Of Breath Alprazolam 0.5 mg 03/30/20 14:19 04/24/20 02:08 Xanax PO 0.5 mg Q8H PRN Administration Anxiety Lipase/Protease/Amylase 1 each 02/26/20 11:[address] 10,500 Unit FEEDTUBE PRN PRN For Clogged Feeding Tube Baclofen 10 mg 04/03/20 12:00 04/24/20 09:25 Lioresal PO 10 mg BID ALISA Administration Bisacodyl 10 mg 03/12/20 18:00 04/12/20 09:26 Bisacodyl 10 Mg Rect Supp MD 10 mg QDAY PRN Administration Bowel Movement Docusate Sodium 100 mg 04/03/20 12:00 04/24/20 09:24 Colace FEEDTUBE 100 mg BID ALISA Administration Enoxaparin Sodium 40 mg 03/20/20 22:00 04/23/20 21:42 Enoxaparin 40 Mg/0.4 Ml Inj SUB-Q 40 mg QDAY@2200 ALISA Administration Protocol Glycopyrrolate 2 mg 04/16/20 20:00 04/24/20 07:33 Glycopyrrolate 1 Mg Tab PO 2 mg TID ALISA Administration Lansoprazole 30 mg 02/28/20 10:00 04/24/20 09:24 Prevacid Solutab FEEDTUBE 30 mg QDAY ALISA Administration Lidocaine 1 each 03/31/20 10:00 04/24/20 09:26 Lidoderm 5% TD 1 each QDAY ALISA Administration Lidocaine HCl 15 ml 04/15/20 14:00 04/24/20 07:33 Magic Mouthwash 30ml PO 15 ml TID ALISA Administration Magnesium Hydroxide 30 ml 04/12/20 19:20 04/21/20 08:52 Magnesium Hydroxide (Mom) Oral Liqd Udc PO 30 ml Q4H PRN Administration Constipation Metoprolol Tartrate 12.5 mg 02/24/20 22:00 04/24/20 09:24 Metoprolol Tartrate 25 Mg Tab PO 12.5 mg BID ALISA Administration Morphine Sulfate 2 mg 02/29/20 16:42 04/24/20 01:32 Morphine IV 2 mg Q4H PRN Administration Pain, Moderate (4-6) Nitroglycerin 0.4 mg 04/24/20 02:03 Nitroglycerin 0.4 Mg Tab Subl SL .Q5MIN PRN Chest Pain Pregabalin 150 mg 04/03/20 12:00 04/24/20 09:25 Pregabalin PO 150 mg BID ALISA Administration Scopolamine 1 each 03/03/20 14:00 04/23/20 10:13 Transderm-Scop TD 1 each Q3D ALISA Administration Senna 17.2 mg 04/03/20 22:00 04/23/20 21:45 Senokot PO Not Given QHS ALISA Simple Syrup 15 ml 02/26/20 11:16 Simple Syrup FEEDTUBE PRN PRN Hypoglycemia Simple Syrup 30 ml 02/26/20 11:16 Simple Syrup FEEDTUBE PRN PRN Hypoglycemia Sodium Bicarbonate 325 mg 02/26/20 11:16 Sodium Bicarbonate FEEDTUBE PRN PRN For Clogged Feeding Tube Sodium Hypochlorite 1 applic 03/31/20 13:00 04/23/20 21:42 Dakin's Half Strength TP 1 applicatio BID ALISA Administration Tamsulosin HCl 0.4 mg 03/09/20 18:00 04/24/20 09:25 Tamsulosin 0.4 Mg Cap PO 0.4 mg QDAY ALISA Administration Tramadol HCl 50 mg 04/22/20 11:35 04/23/20 21:46 Tramadol 50 Mg Tab PO 50 mg Q6H PRN Administration Pain, Moderate (4-6) Zolpidem Tartrate 10 mg 03/31/20 20:15 04/23/20 21:45 Ambien PO 10 mg QHS PRN Administration Sleep Nutrition/Malnutrition Assess - Dietary Evaluation Nutrition/Malnutrition Findings: Nutrition Notes Start: 02/26/20 10:40 Freq: Status: Active Protocol: Document 04/18/20 12:15 AB (Rec: 04/18/20 12:16 AB [id number]) Co-Sign 04/18/20 12:15 LP Nutrition Notes Initial or Follow up Brief Note Current Diagnosis Decubitus(Pressure Ulcer), Sepsis,Respiratory Failure Other Pertinent Diagnosis COVID-19 (-), ALS, pneumonia, Hip/buttock PU Current Diet Vital AF 1.2 at 75ml/hr (goal rate) Subjective/Other Information F/U for TF tolerance. Per RN, pt TF is running at goal and tolerating it. Nutrition Intervention Follow-Up By: 04/25/20 Additional Comments F/U for TF tolerance
[2020-04-24] MEDS: SODIUM HYPOCHLORITE, DAKIN'S 1/2 STRENGTH (0.25%) 473 ML TOPICAL SOLN TP SCH ×2 (10:38→22:12)
--- NOTE | 2020-04-24 14:02 | Progress Note ---
Assessment and Plan Patient sleeping at this time.. Patient is in assist control mechanical ventilation, rate 10, Tidal volume 400, FIO2 30%, PEEP 6 and O2 saturation running 99%. Recommend Continue spontaneous breathing trials as tolerated.Patient afebrile and has leukocytosis. Chest xray done 04/15/20 reported mild basilar airspace opacities which likely represent atelectasis but could represent an evolving pneumonia. If patient running fever, recommend to place hin on antibiotics like zosyn. - Patient Problems (1) Acute on chronic respiratory failure with hypoxia and hypercapnia Current Visit: Yes Status: Acute Plan to address problem: Patient is on assist control mechanical ventilation, Rate 10, Tidal volume 400, FIO2 30%, PEEP 6. Albuterol inhaler 2 puffs po qid. Continue S/C Lovenox. Continue prevacid. Recommend to continue spontaneous breathing trials. (2) Bleeding from wound Current Visit: Yes Status: Acute Plan to address problem: Management primary care , surgery and wound care. (3) Elevated d-dimer Current Visit: Yes Status: Acute Plan to address problem: Patients venous doppler studies of legs, CTA chest reported Negative for VTE. Patient is on S/C Lovenox 40 mg qd. (4) Elevated troponin Current Visit: Yes Status: Acute Plan to address problem: Management as per primary care and cardiology (5) NSTEMI (non-ST elevated myocardial infarction) Current Visit: Yes Status: Acute Plan to address problem: Management as per cardiology. (6) Pneumonia Current Visit: Yes Status: Acute Qualifiers: Laterality: bilateral Plan to address problem: Patient was treated with ceftriaxone, zosyn and zithromax. Patient afebrile to day. Has leukocytosis. Chest xray done 04/15/20 reported mild basilar airspace opacities which likely represent atelectasis but could represent an evolving pneumonia. If patient ru nning fever, recommend to place him back on antibiotics like zosyn. Subjective Date of service: 04/24/20 Principal diagnosis: Ac on Ch Hypercapnic & hypoxemic Resp Failure; Severe Sepsis; Jamar PNA; ALS Interval history: Patient sleeping at this time.. Patient is in assist control mechanical ventilation, rate 10, Tidal volume 400, FIO2 30%, PEEP 6 and O2 saturation running 99%. Recommend Continue spontaneous breathing trials as tolerated.Patient afebrile and has leukocytosis. Chest xray done 04/15/20 reported mild basilar airspace opacities which likely represent atelectasis but could represent an evolving pneumonia. If patient running fever, recommend to place hin on antibiotics like zosyn. Objective Vital Signs - 12hr 04/24/20 04/24/20 04/24/20 03:00 04:00 04:32 Temperature 97.6 F Pulse Rate 90 87 103 H Pulse Rate [ 87 From Monitor] Respiratory 14 15 Rate Blood Pressure 94/66 99/63 99/63 O2 Sat by Pulse 100 100 99 Oximetry 04/24/20 04/24/20 04/24/20 05:00 06:00 07:00 Temperature Pulse Rate 99 H 85 92 H Pulse Rate [ From Monitor] Respiratory 21 19 13 Rate Blood Pressure 113/77 114/77 105/76 O2 Sat by Pulse 100 100 Oximetry 04/24/20 04/24/20 04/24/20 07:48 08:00 09:00 Temperature 97.7 F Pulse Rate 87 94 H 94 H Pulse Rate [ 88 From Monitor] Respiratory 11 L 16 Rate Blood Pressure 105/76 112/72 110/72 O2 Sat by Pulse 98 100 97 Oximetry 04/24/20 04/24/20 04/24/20 09:24 10:00 11:00 Temperature Pulse Rate 99 H 105 H 97 H Pulse Rate [ From Monitor] Respiratory 18 13 Rate Blood Pressure 110/72 111/72 120/78 O2 Sat by Pulse 96 Oximetry 04/24/20 04/24/20 04/24/20 11:55 12:00 12:51 Temperature 97.7 F Pulse Rate 108 H 105 H Pulse Rate [ 88 From Monitor] Respiratory 22 21 25 H Rate Blood Pressure 120/78 121/83 O2 Sat by Pulse 98 100 Oximetry 04/24/20 13:00 Temperature Pulse Rate 109 H Pulse Rate [ From Monitor] Respiratory 21 Rate Blood Pressure 112/80 O2 Sat by Pulse 99 Oximetry Constitutional: no acute distress, asleep, other (thin middle aged male with normal respiratory effort at rest on MVS) Eyes: non-icteric ENT: oropharynx moist, other (S/P Tracheostomy) Neck: supple, no lymphadenopathy, no JVD Effort: mildly labored Ascultation: Bilateral: diminished breath sounds, wheezes, rhonchi Percussion: Bilateral: not dull Cardiovascular: regular rate and rhythm, other (S1,S2, no murmurs) Gastrointestinal: normoactive bowel sounds, soft, non-tender, non-distended, other (+ distended but non tender suprapubis) Integumentary: normal, decubitus ulcer (sacral / gluteal) Extremities: no cyanosis, no edema, pulses normal, other (atrophic looking limbs) Neurologic: pupils equal and round, other (motor strength in extremities 1-2/5, awake, alert, mouths words to make needs known) Psychiatric: mood appropriate, affect normal CBC and BMP: 04/24/20 05:28 04/24/20 05:28 ABG, PT/INR, D-dimer: ABG ABG pH 7.371 (7.320-7.450) 03/08/20 12:34 POC ABG pCO2 63.1 mmHg (32.0-48.0) H 03/08/20 12:34 ABG pCO2 60.1 mm Hg 03/06/20 04:34 POC ABG pO2 90.5 mmHg (83-108) 03/08/20 12:34 ABG pO2 88.6 mm Hg (80.0-90.0) 03/06/20 04:34 POC ABG HCO3 35.7 03/08/20 12:34 ABG O2 Saturation 97.0 % (95.0-99.0) 03/06/20 04:34 PT/INR, D-dimer PT 15.6 Sec. (12.2-14.9) H 02/24/20 09:19 INR 1.21 (0.87-1.13) H 02/24/20 09:19 D-Dimer 1311.96 ng/mlDDU (0-234) H 02/24/20 09:19 Abnormal lab findings: Abnormal Labs 02/24/20 02/24/20 02/24/20 09:19 09:19 09:19 WBC 20.2 H RBC 5.05 H Hgb Hct MCV MCH RDW 15.3 H Plt Count Lymph % (Auto) [place] % (Auto) Lymph # (Auto) [place] # (Auto) Seg Neutrophils % Seg Neuts % (Manual) 86.0 H Lymphocytes % (Manual) 1.0 L Monocytes % (Manual) Basophils % (Manual) Seg Neutrophils # Seg Neutrophils # Man 17.4 H Lymphocytes # (Manual) 0.2 L Monocytes # (Manual) Eosinophils # (Manual) Basophils # (Manual) PT 15.6 H INR 1.21 H D-Dimer 1311.96 H ABG pH POC ABG pCO2 POC ABG pO2 ABG pO2 ABG HCO3 ABG O2 Saturation ABG Base Excess ABG Hemoglobin ABG Oxyhemoglobin ABG Potassium ABG Glucose Oxyhemoglobin Carboxyhemoglobin Sodium 135 L Potassium 3.2 L Chloride 92.2 L Carbon Dioxide BUN 6 L Creatinine < 0.2 L Glucose 124 H POC Glucose Calcium Ferritin Total Bilirubin 2.30 H Alkaline Phosphatase 132 H Lactate Dehydrogenase Total Creatine Kinase CK-MB (CK-2) Rel Index Troponin T 0.080 H C-Reactive Protein Total Protein Albumin 3.6 L Prealbumin LDL Cholesterol Direct 41 L HDL Cholesterol Arterial Blood Glucose Arterial Blood Ionized Calcium Urine WBC (Auto) 02/24/20 02/24/20 02/24/20 09:19 09:58 10:01 WBC RBC Hgb Hct MCV MCH RDW Plt Count Lymph % (Auto) [place] % (Auto) Lymph # (Auto) [place] # (Auto) Seg Neutrophils % Seg Neuts % (Manual) Lymphocytes % (Manual) Monocytes % (Manual) Basophils % (Manual) Seg Neutrophils # Seg Neutrophils # Man Lymphocytes # (Manual) Monocytes # (Manual) Eosinophils # (Manual) Basophils # (Manual) PT INR D-Dimer ABG pH 7.176 L* POC ABG pCO2 POC ABG pO2 ABG pO2 91.2 H ABG HCO3 ABG O2 Saturation ABG Base Excess -4.6 L ABG Hemoglobin ABG Oxyhemoglobin ABG Potassium ABG Glucose Oxyhemoglobin 92.6 L Carboxyhemoglobin Sodium Potassium Chloride Carbon Dioxide BUN Creatinine Glucose POC Glucose Calcium Ferritin 1715.0 H Total Bilirubin Alkaline Phosphatase Lactate Dehydrogenase 303 H Total Creatine Kinase CK-MB (CK-2) Rel Index Troponin T C-Reactive Protein 26.10 H Total Protein Albumin Prealbumin LDL Cholesterol Direct HDL Cholesterol Arterial Blood Glucose Arterial Blood Ionized Calcium Urine WBC (Auto) 02/24/20 02/24/20 02/24/20 11:52 13:45 19:35 WBC RBC Hgb Hct MCV MCH RDW Plt Count Lymph % (Auto) [place] % (Auto) Lymph # (Auto) [place] # (Auto) Seg Neutrophils % Seg Neuts % (Manual) Lymphocytes % (Manual) Monocytes % (Manual) Basophils % (Manual) Seg Neutrophils # Seg Neutrophils # Man Lymphocytes # (Manual) Monocytes # (Manual) Eosinophils # (Manual) Basophils # (Manual) PT INR D-Dimer ABG pH 7.051 L* 7.300 L POC ABG pCO2 POC ABG pO2 ABG pO2 94.7 H 75.1 L ABG HCO3 18.0 L ABG O2 Saturation 93.5 L ABG Base Excess -6.8 L -7.8 L ABG Hemoglobin 13.2 L 11.9 L ABG Oxyhemoglobin ABG Potassium ABG Glucose Oxyhemoglobin 91.0 L 92.7 L Carboxyhemoglobin Sodium Potassium Chloride Carbon Dioxide BUN Creatinine Glucose POC Glucose Calcium Ferritin Total Bilirubin Alkaline Phosphatase Lactate Dehydrogenase Total Creatine Kinase CK-MB (CK-2) Rel Index Troponin T 0.034 H D C-Reactive Protein Total Protein Albumin Prealbumin LDL Cholesterol Direct HDL Cholesterol Arterial Blood Glucose Arterial Blood Ionized Calcium Urine WBC (Auto) 02/25/20 02/25/20 02/25/20 04:00 04:00 12:26 WBC 22.9 H RBC Hgb Hct MCV 83 L MCH 27 L RDW Plt Count 468 H Lymph % (Auto) [place] % (Auto) Lymph # (Auto) [place] # (Auto) Seg Neutrophils % Seg Neuts % (Manual) 89.0 H Lymphocytes % (Manual) 7.0 L Monocytes % (Manual) Basophils % (Manual) Seg Neutrophils # Seg Neutrophils # Man 20.4 H Lymphocytes # (Manual) Monocytes # (Manual) Eosinophils # (Manual) Basophils # (Manual) PT INR D-Dimer ABG pH POC ABG pCO2 POC ABG pO2 ABG pO2 ABG HCO3 ABG O2 Saturation ABG Base Excess ABG Hemoglobin ABG Oxyhemoglobin ABG Potassium 2.6 L ABG Glucose 142 H Oxyhemoglobin Carboxyhemoglobin Sodium Potassium 3.2 L Chloride Carbon Dioxide 18 L BUN Creatinine 0.2 L Glucose 114 H POC Glucose Calcium Ferritin Total Bilirubin Alkaline Phosphatase Lactate Dehydrogenase Total Creatine Kinase CK-MB (CK-2) Rel Index Troponin T C-Reactive Protein Total Protein Albumin 3.5 L Prealbumin LDL Cholesterol Direct HDL Cholesterol Arterial Blood Glucose 142 H Arterial Blood Ionized Calcium Urine WBC (Auto) 02/26/20 02/26/20 02/26/20 15:58 17:00 23:43 WBC RBC Hgb Hct MCV MCH RDW Plt Count Lymph % (Auto) [place] % (Auto) Lymph # (Auto) [place] # (Auto) Seg Neutrophils % Seg Neuts % (Manual) Lymphocytes % (Manual) Monocytes % (Manual) Basophils % (Manual) Seg Neutrophils # Seg Neutrophils # Man Lymphocytes # (Manual) Monocytes # (Manual) Eosinophils # (Manual) Basophils # (Manual) PT INR D-Dimer ABG pH 7.502 H POC ABG pCO2 POC ABG pO2 213.6 H ABG pO2 ABG HCO3 ABG O2 Saturation ABG Base Excess ABG Hemoglobin ABG Oxyhemoglobin 99.2 H ABG Potassium 2.9 L ABG Glucose 160 H Oxyhemoglobin Carboxyhemoglobin 0.4 L Sodium Potassium Chloride Carbon Dioxide BUN Creatinine Glucose POC Glucose 189 H 120 H Calcium Ferritin Total Bilirubin Alkaline Phosphatase Lactate Dehydrogenase Total Creatine Kinase CK-MB (CK-2) Rel Index Troponin T C-Reactive Protein Total Protein Albumin Prealbumin LDL Cholesterol Direct HDL Cholesterol Arterial Blood Glucose 160 H Arterial Blood Ionized Calcium 4.5 L Urine WBC (Auto) 02/27/20 02/27/20 02/27/20 05:00 07:04 17:45 WBC RBC Hgb Hct MCV MCH RDW Plt Count Lymph % (Auto) [place] % (Auto) Lymph # (Auto) [place] # (Auto) Seg Neutrophils % Seg Neuts % (Manual) Lymphocytes % (Manual) Monocytes % (Manual) Basophils % (Manual) Seg Neutrophils # Seg Neutrophils # Man Lymphocytes # (Manual) Monocytes # (Manual) Eosinophils # (Manual) Basophils # (Manual) PT INR D-Dimer ABG pH 7.524 H POC ABG pCO2 POC ABG pO2 ABG pO2 ABG HCO3 ABG O2 Saturation ABG Base Excess ABG Hemoglobin ABG Oxyhemoglobin ABG Potassium 3.0 L ABG Glucose 143 H Oxyhemoglobin Carboxyhemoglobin Sodium Potassium Chloride Carbon Dioxide BUN Creatinine Glucose POC Glucose 154 H 175 H Calcium Ferritin Total Bilirubin Alkaline Phosphatase Lactate Dehydrogenase Total Creatine Kinase CK-MB (CK-2) Rel Index Troponin T C-Reactive Protein Total Protein Albumin Prealbumin LDL Cholesterol Direct HDL Cholesterol Arterial Blood Glucose 143 H Arterial Blood Ionized Calcium Urine WBC (Auto) 02/27/20 02/28/20 02/28/20 Unknown 00:21 04:15 WBC 18.7 H RBC Hgb Hct MCV MCH RDW Plt Count Lymph % (Auto) 8.7 L [place] % (Auto) Lymph # (Auto) [place] # (Auto) 1.2 H Seg Neutrophils % 84.6 H Seg Neuts % (Manual) Lymphocytes % (Manual) Monocytes % (Manual) Basophils % (Manual) Seg Neutrophils # 15.9 H Seg Neutrophils # Man Lymphocytes # (Manual) Monocytes # (Manual) Eosinophils # (Manual) Basophils # (Manual) PT INR D-Dimer ABG pH POC ABG pCO2 POC ABG pO2 ABG pO2 ABG HCO3 ABG O2 Saturation ABG Base Excess ABG Hemoglobin ABG Oxyhemoglobin ABG Potassium ABG Glucose Oxyhemoglobin Carboxyhemoglobin Sodium Potassium 2.9 L* Chloride Carbon Dioxide 33 H D BUN Creatinine < 0.2 L Glucose 157 H POC Glucose 134 H Calcium Ferritin Total Bilirubin Alkaline Phosphatase Lactate Dehydrogenase Total Creatine Kinase CK-MB (CK-2) Rel Index Troponin T C-Reactive Protein Total Protein Albumin Prealbumin LDL Cholesterol Direct HDL Cholesterol Arterial Blood Glucose Arterial Blood Ionized Calcium Urine WBC (Auto) 02/28/20 02/28/20 02/28/20 04:15 05:16 05:39 WBC RBC Hgb Hct MCV MCH RDW Plt Count Lymph % (Auto) [place] % (Auto) Lymph # (Auto) [place] # (Auto) Seg Neutrophils % Seg Neuts % (Manual) Lymphocytes % (Manual) Monocytes % (Manual) Basophils % (Manual) Seg Neutrophils # Seg Neutrophils # Man Lymphocytes # (Manual) Monocytes # (Manual) Eosinophils # (Manual) Basophils # (Manual) PT INR D-Dimer ABG pH POC ABG pCO2 POC ABG pO2 ABG pO2 142.9 H ABG HCO3 34.1 H ABG O2 Saturation ABG Base Excess 8.3 H ABG Hemoglobin ABG Oxyhemoglobin ABG Potassium ABG Glucose Oxyhemoglobin Carboxyhemoglobin Sodium 151 H Potassium Chloride Carbon Dioxide 32 H BUN Creatinine 0.2 L Glucose 167 H POC Glucose 138 H Calcium Ferritin Total Bilirubin Alkaline Phosphatase Lactate Dehydrogenase Total Creatine Kinase CK-MB (CK-2) Rel Index Troponin T C-Reactive Protein Total Protein Albumin Prealbumin LDL Cholesterol Direct HDL Cholesterol Arterial Blood Glucose Arterial Blood Ionized Calcium Urine WBC (Auto) 02/28/20 02/28/20 02/28/20 11:05 11:33 12:54 WBC RBC Hgb Hct MCV MCH RDW Plt Count Lymph % (Auto) [place] % (Auto) Lymph # (Auto) [place] # (Auto) Seg Neutrophils % Seg Neuts % (Manual) Lymphocytes % (Manual) Monocytes % (Manual) Basophils % (Manual) Seg Neutrophils # Seg Neutrophils # Man Lymphocytes # (Manual) Monocytes # (Manual) Eosinophils # (Manual) Basophils # (Manual) PT INR D-Dimer ABG pH POC ABG pCO2 POC ABG pO2 ABG pO2 ABG HCO3 ABG O2 Saturation ABG Base Excess ABG Hemoglobin ABG Oxyhemoglobin ABG Potassium ABG Glucose Oxyhemoglobin Carboxyhemoglobin Sodium Potassium Chloride Carbon Dioxide BUN Creatinine Glucose POC Glucose 160 H Calcium Ferritin Total Bilirubin Alkaline Phosphatase Lactate Dehydrogenase Total Creatine Kinase CK-MB (CK-2) Rel Index Troponin T C-Reactive Protein 4.70 H Total Protein Albumin Prealbumin 0.090 L LDL Cholesterol Direct HDL Cholesterol Arterial Blood Glucose Arterial Blood Ionized Calcium Urine WBC (Auto) 02/28/20 02/29/20 02/29/20 17:34 00:44 04:05 WBC 19.6 H RBC Hgb Hct MCV MCH 27 L RDW 15.4 H Plt Count Lymph % (Auto) [place] % (Auto) Lymph # (Auto) [place] # (Auto) Seg Neutrophils % Seg Neuts % (Manual) 86.0 H Lymphocytes % (Manual) 7.0 L Monocytes % (Manual) Basophils % (Manual) Seg Neutrophils # Seg Neutrophils # Man 16.9 H Lymphocytes # (Manual) Monocytes # (Manual) 1.2 H Eosinophils # (Manual) Basophils # (Manual) PT INR D-Dimer ABG pH POC ABG pCO2 POC ABG pO2 ABG pO2 ABG HCO3 ABG O2 Saturation ABG Base Excess ABG Hemoglobin ABG Oxyhemoglobin ABG Potassium ABG Glucose Oxyhemoglobin Carboxyhemoglobin Sodium Potassium Chloride Carbon Dioxide BUN Creatinine Glucose POC Glucose 136 H 156 H Calcium Ferritin Total Bilirubin Alkaline Phosphatase Lactate Dehydrogenase Total Creatine Kinase CK-MB (CK-2) Rel Index Troponin T C-Reactive Protein Total Protein Albumin Prealbumin LDL Cholesterol Direct HDL Cholesterol Arterial Blood Glucose Arterial Blood Ionized Calcium Urine WBC (Auto) 02/29/20 02/29/20 02/29/20 04:05 05:14 05:33 WBC RBC Hgb Hct MCV MCH RDW Plt Count Lymph % (Auto) [place] % (Auto) Lymph # (Auto) [place] # (Auto) Seg Neutrophils % Seg Neuts % (Manual) Lymphocytes % (Manual) Monocytes % (Manual) Basophils % (Manual) Seg Neutrophils # Seg Neutrophils # Man Lymphocytes # (Manual) Monocytes # (Manual) Eosinophils # (Manual) Basophils # (Manual) PT INR D-Dimer ABG pH POC ABG pCO2 54.3 H POC ABG pO2 124.8 H ABG pO2 ABG HCO3 ABG O2 Saturation ABG Base Excess ABG Hemoglobin ABG Oxyhemoglobin ABG Potassium ABG Glucose 185 H Oxyhemoglobin Carboxyhemoglobin Sodium 148 H Potassium Chloride Carbon Dioxide 33 H BUN Creatinine < 0.2 L Glucose 173 H POC Glucose 152 H Calcium Ferritin Total Bilirubin Alkaline Phosphatase Lactate Dehydrogenase Total Creatine Kinase CK-MB (CK-2) Rel Index Troponin T C-Reactive Protein Total Protein Albumin Prealbumin LDL Cholesterol Direct HDL Cholesterol Arterial Blood Glucose 185 H Arterial Blood Ionized Calcium Urine WBC (Auto) 03/01/20 03/01/20 03/01/20 00:00 03:45 04:33 WBC 23.1 H RBC Hgb Hct MCV MCH 27 L RDW 15.3 H Plt Count Lymph % (Auto) [place] % (Auto) Lymph # (Auto) [place] # (Auto) Seg Neutrophils % Seg Neuts % (Manual) 92.0 H Lymphocytes % (Manual) 6.0 L Monocytes % (Manual) Basophils % (Manual) Seg Neutrophils # Seg Neutrophils # Man 21.3 H Lymphocytes # (Manual) Monocytes # (Manual) Eosinophils # (Manual) 0.5 H Basophils # (Manual) PT INR D-Dimer ABG pH 7.492 H POC ABG pCO2 POC ABG pO2 ABG pO2 157.1 H ABG HCO3 32.3 H ABG O2 Saturation ABG Base Excess 8.1 H ABG Hemoglobin 13.2 L ABG Oxyhemoglobin ABG Potassium ABG Glucose Oxyhemoglobin Carboxyhemoglobin Sodium Potassium Chloride Carbon Dioxide BUN Creatinine Glucose POC Glucose 109 H Calcium Ferritin Total Bilirubin Alkaline Phosphatase Lactate Dehydrogenase Total Creatine Kinase CK-MB (CK-2) Rel Index Troponin T C-Reactive Protein Total Protein Albumin Prealbumin LDL Cholesterol Direct HDL Cholesterol Arterial Blood Glucose Arterial Blood Ionized Calcium Urine WBC (Auto) 03/01/20 03/01/20 03/01/20 04:33 05:29 12:32 WBC RBC Hgb Hct MCV MCH RDW Plt Count Lymph % (Auto) [place] % (Auto) Lymph # (Auto) [place] # (Auto) Seg Neutrophils % Seg Neuts % (Manual) Lymphocytes % (Manual) Monocytes % (Manual) Basophils % (Manual) Seg Neutrophils # Seg Neutrophils # Man Lymphocytes # (Manual) Monocytes # (Manual) Eosinophils # (Manual) Basophils # (Manual) PT INR D-Dimer ABG pH POC ABG pCO2 POC ABG pO2 ABG pO2 ABG HCO3 ABG O2 Saturation ABG Base Excess ABG Hemoglobin ABG Oxyhemoglobin ABG Potassium ABG Glucose Oxyhemoglobin Carboxyhemoglobin Sodium 146 H Potassium Chloride Carbon Dioxide 32 H BUN Creatinine < 0.2 L Glucose 120 H POC Glucose 120 H 128 H Calcium Ferritin Total Bilirubin Alkaline Phosphatase Lactate Dehydrogenase Total Creatine Kinase CK-MB (CK-2) Rel Index Troponin T C-Reactive Protein Total Protein Albumin Prealbumin LDL Cholesterol Direct HDL Cholesterol Arterial Blood Glucose Arterial Blood Ionized Calcium Urine WBC (Auto) 03/01/20 03/01/20 03/02/20 17:38 23:46 06:13 WBC RBC Hgb Hct MCV MCH RDW Plt Count Lymph % (Auto) [place] % (Auto) Lymph # (Auto) [place] # (Auto) Seg Neutrophils % Seg Neuts % (Manual) Lymphocytes % (Manual) Monocytes % (Manual) Basophils % (Manual) Seg Neutrophils # Seg Neutrophils # Man Lymphocytes # (Manual) Monocytes # (Manual) Eosinophils # (Manual) Basophils # (Manual) PT INR D-Dimer ABG pH POC ABG pCO2 POC ABG pO2 ABG pO2 ABG HCO3 ABG O2 Saturation ABG Base Excess ABG Hemoglobin ABG Oxyhemoglobin ABG Potassium ABG Glucose Oxyhemoglobin Carboxyhemoglobin Sodium Potassium Chloride Carbon Dioxide BUN Creatinine Glucose POC Glucose 114 H 121 H 120 H Calcium Ferritin Total Bilirubin Alkaline Phosphatase Lactate Dehydrogenase Total Creatine Kinase CK-MB (CK-2) Rel Index Troponin T C-Reactive Protein Total Protein Albumin Prealbumin LDL Cholesterol Direct HDL Cholesterol Arterial Blood Glucose Arterial Blood Ionized Calcium Urine WBC (Auto) 03/02/20 03/02/20 03/03/20 09:47 09:47 10:21 WBC 23.6 H RBC Hgb Hct MCV MCH RDW 15.3 H Plt Count 494 H Lymph % (Auto) [place] % (Auto) Lymph # (Auto) [place] # (Auto) Seg Neutrophils % Seg Neuts % (Manual) 85.0 H Lymphocytes % (Manual) 6.0 L Monocytes % (Manual) Basophils % (Manual) Seg Neutrophils # Seg Neutrophils # Man 20.1 H Lymphocytes # (Manual) Monocytes # (Manual) 1.7 H Eosinophils # (Manual) Basophils # (Manual) PT INR D-Dimer ABG pH POC ABG pCO2 POC ABG pO2 ABG pO2 ABG HCO3 ABG O2 Saturation ABG Base Excess ABG Hemoglobin ABG Oxyhemoglobin ABG Potassium 3.3 L ABG Glucose 158 H Oxyhemoglobin Carboxyhemoglobin Sodium Potassium Chloride Carbon Dioxide BUN Creatinine < 0.2 L Glucose 177 H POC Glucose Calcium Ferritin Total Bilirubin Alkaline Phosphatase Lactate Dehydrogenase Total Creatine Kinase CK-MB (CK-2) Rel Index Troponin T C-Reactive Protein Total Protein Albumin Prealbumin LDL Cholesterol Direct HDL Cholesterol Arterial Blood Glucose 158 H Arterial Blood Ionized Calcium Urine WBC (Auto) 03/03/20 03/04/20 03/04/20 21:30 00:00 12:23 WBC RBC Hgb Hct MCV MCH RDW Plt Count Lymph % (Auto) [place] % (Auto) Lymph # (Auto) [place] # (Auto) Seg Neutrophils % Seg Neuts % (Manual) Lymphocytes % (Manual) Monocytes % (Manual) Basophils % (Manual) Seg Neutrophils # Seg Neutrophils # Man Lymphocytes # (Manual) Monocytes # (Manual) Eosinophils # (Manual) Basophils # (Manual) PT INR D-Dimer ABG pH 7.328 L POC ABG pCO2 POC ABG pO2 ABG pO2 68.4 L ABG HCO3 35.0 H ABG O2 Saturation 93.9 L ABG Base Excess 6.8 H ABG Hemoglobin 12.7 L ABG Oxyhemoglobin ABG Potassium ABG Glucose Oxyhemoglobin 91.9 L Carboxyhemoglobin Sodium Potassium Chloride Carbon Dioxide BUN Creatinine Glucose POC Glucose 187 H 163 H Calcium Ferritin Total Bilirubin Alkaline Phosphatase Lactate Dehydrogenase Total Creatine Kinase CK-MB (CK-2) Rel Index Troponin T C-Reactive Protein Total Protein Albumin Prealbumin LDL Cholesterol Direct HDL Cholesterol Arterial Blood Glucose Arterial Blood Ionized Calcium Urine WBC (Auto) 03/04/20 03/04/20 03/05/20 18:15 21:30 06:02 WBC RBC Hgb Hct MCV MCH RDW Plt Count Lymph % (Auto) [place] % (Auto) Lymph # (Auto) [place] # (Auto) Seg Neutrophils % Seg Neuts % (Manual) Lymphocytes % (Manual) Monocytes % (Manual) Basophils % (Manual) Seg Neutrophils # Seg Neutrophils # Man Lymphocytes # (Manual) Monocytes # (Manual) Eosinophils # (Manual) Basophils # (Manual) PT INR D-Dimer ABG pH 7.297 L POC ABG pCO2 POC ABG pO2 ABG pO2 ABG HCO3 41.0 H ABG O2 Saturation ABG Base Excess 11.0 H ABG Hemoglobin 13.1 L ABG Oxyhemoglobin ABG Potassium ABG Glucose Oxyhemoglobin 94.5 L Carboxyhemoglobin Sodium Potassium Chloride Carbon Dioxide BUN Creatinine Glucose POC Glucose 192 H 127 H Calcium Ferritin Total Bilirubin Alkaline Phosphatase Lactate Dehydrogenase Total Creatine Kinase CK-MB (CK-2) Rel Index Troponin T C-Reactive Protein Total Protein Albumin Prealbumin LDL Cholesterol Direct HDL Cholesterol Arterial Blood Glucose Arterial Blood Ionized Calcium Urine WBC (Auto) 03/05/20 03/05/20 03/06/20 12:09 16:42 00:24 WBC RBC Hgb Hct MCV MCH RDW Plt Count Lymph % (Auto) [place] % (Auto) Lymph # (Auto) [place] # (Auto) Seg Neutrophils % Seg Neuts % (Manual) Lymphocytes % (Manual) Monocytes % (Manual) Basophils % (Manual) Seg Neutrophils # Seg Neutrophils # Man Lymphocytes # (Manual) Monocytes # (Manual) Eosinophils # (Manual) Basophils # (Manual) PT INR D-Dimer ABG pH POC ABG pCO2 POC ABG pO2 ABG pO2 ABG HCO3 ABG O2 Saturation ABG Base Excess ABG Hemoglobin ABG Oxyhemoglobin ABG Potassium ABG Glucose Oxyhemoglobin Carboxyhemoglobin Sodium Potassium Chloride Carbon Dioxide BUN Creatinine Glucose POC Glucose 147 H 114 H 134 H Calcium Ferritin Total Bilirubin Alkaline Phosphatase Lactate Dehydrogenase Total Creatine Kinase CK-MB (CK-2) Rel Index Troponin T C-Reactive Protein Total Protein Albumin Prealbumin LDL Cholesterol Direct HDL Cholesterol Arterial Blood Glucose Arterial Blood Ionized Calcium Urine WBC (Auto) 03/06/20 03/06/20 03/06/20 04:34 05:53 06:08 WBC 25.4 H RBC Hgb 10.5 L Hct 32.7 L MCV MCH 27 L RDW 15.3 H Plt Count 634 H Lymph % (Auto) [place] % (Auto) Lymph # (Auto) [place] # (Auto) Seg Neutrophils % Seg Neuts % (Manual) 88.0 H Lymphocytes % (Manual) 2.0 L Monocytes % (Manual) 8.0 H Basophils % (Manual) Seg Neutrophils # Seg Neutrophils # Man 22.4 H Lymphocytes # (Manual) 0.5 L Monocytes # (Manual) 2.0 H Eosinophils # (Manual) Basophils # (Manual) PT INR D-Dimer ABG pH POC ABG pCO2 POC ABG pO2 ABG pO2 ABG HCO3 37.9 H ABG O2 Saturation ABG Base Excess 11.4 H ABG Hemoglobin 10.6 L ABG Oxyhemoglobin ABG Potassium ABG Glucose Oxyhemoglobin 94.7 L Carboxyhemoglobin Sodium Potassium Chloride Carbon Dioxide BUN Creatinine Glucose POC Glucose 135 H Calcium Ferritin Total Bilirubin Alkaline Phosphatase Lactate Dehydrogenase Total Creatine Kinase CK-MB (CK-2) Rel Index Troponin T C-Reactive Protein Total Protein Albumin Prealbumin LDL Cholesterol Direct HDL Cholesterol Arterial Blood Glucose Arterial Blood Ionized Calcium Urine WBC (Auto) 03/06/20 03/06/20 03/06/20 06:08 12:19 19:10 WBC RBC Hgb Hct MCV MCH RDW Plt Count Lymph % (Auto) [place] % (Auto) Lymph # (Auto) [place] # (Auto) Seg Neutrophils % Seg Neuts % (Manual) Lymphocytes % (Manual) Monocytes % (Manual) Basophils % (Manual) Seg Neutrophils # Seg Neutrophils # Man Lymphocytes # (Manual) Monocytes # (Manual) Eosinophils # (Manual) Basophils # (Manual) PT INR D-Dimer ABG pH POC ABG pCO2 POC ABG pO2 ABG pO2 ABG HCO3 ABG O2 Saturation ABG Base Excess ABG Hemoglobin ABG Oxyhemoglobin ABG Potassium ABG Glucose Oxyhemoglobin Carboxyhemoglobin Sodium 150 H D Potassium Chloride Carbon Dioxide 39 H D BUN 23 H Creatinine < 0.2 L Glucose 144 H POC Glucose 169 H 152 H Calcium Ferritin Total Bilirubin Alkaline Phosphatase Lactate Dehydrogenase Total Creatine Kinase CK-MB (CK-2) Rel Index Troponin T C-Reactive Protein Total Protein Albumin 3.3 L Prealbumin LDL Cholesterol Direct HDL Cholesterol Arterial Blood Glucose Arterial Blood Ionized Calcium Urine WBC (Auto) 03/06/20 03/07/20 03/07/20 23:58 04:25 04:25 WBC 22.1 H RBC Hgb 10.9 L Hct 32.9 L MCV MCH RDW 15.5 H Plt Count 739 H Lymph % (Auto) 7.8 L [place] % (Auto) Lymph # (Auto) [place] # (Auto) 1.3 H Seg Neutrophils % 85.5 H Seg Neuts % (Manual) Lymphocytes % (Manual) Monocytes % (Manual) Basophils % (Manual) Seg Neutrophils # 18.9 H Seg Neutrophils # Man Lymphocytes # (Manual) Monocytes # (Manual) Eosinophils # (Manual) Basophils # (Manual) PT INR D-Dimer ABG pH POC ABG pCO2 POC ABG pO2 ABG pO2 ABG HCO3 ABG O2 Saturation ABG Base Excess ABG Hemoglobin ABG Oxyhemoglobin ABG Potassium ABG Glucose Oxyhemoglobin Carboxyhemoglobin Sodium 146 H Potassium Chloride Carbon Dioxide 37 H BUN Creatinine < 0.2 L Glucose 118 H POC Glucose 111 H Calcium Ferritin Total Bilirubin Alkaline Phosphatase Lactate Dehydrogenase Total Creatine Kinase CK-MB (CK-2) Rel Index Troponin T C-Reactive Protein Total Protein Albumin 3.7 L Prealbumin LDL Cholesterol Direct HDL Cholesterol Arterial Blood Glucose Arterial Blood Ionized Calcium Urine WBC (Auto) 03/07/20 03/07/20 03/07/20 05:20 17:45 23:32 WBC RBC Hgb Hct MCV MCH RDW Plt Count Lymph % (Auto) [place] % (Auto) Lymph # (Auto) [place] # (Auto) Seg Neutrophils % Seg Neuts % (Manual) Lymphocytes % (Manual) Monocytes % (Manual) Basophils % (Manual) Seg Neutrophils # Seg Neutrophils # Man Lymphocytes # (Manual) Monocytes # (Manual) Eosinophils # (Manual) Basophils # (Manual) PT INR D-Dimer ABG pH POC ABG pCO2 POC ABG pO2 ABG pO2 ABG HCO3 ABG O2 Saturation ABG Base Excess ABG Hemoglobin ABG Oxyhemoglobin ABG Potassium ABG Glucose Oxyhemoglobin Carboxyhemoglobin Sodium Potassium Chloride Carbon Dioxide BUN Creatinine Glucose POC Glucose 113 H 124 H 210 H Calcium Ferritin Total Bilirubin Alkaline Phosphatase Lactate Dehydrogenase Total Creatine Kinase CK-MB (CK-2) Rel Index Troponin T C-Reactive Protein Total Protein Albumin Prealbumin LDL Cholesterol Direct HDL Cholesterol Arterial Blood Glucose Arterial Blood Ionized Calcium Urine WBC (Auto) 03/08/20 03/08/20 03/08/20 05:35 06:43 06:43 WBC 28.9 H RBC 3.53 L Hgb 9.7 L Hct 30.3 L MCV MCH RDW 15.6 H Plt Count 578 H Lymph % (Auto) [place] % (Auto) Lymph # (Auto) [place] # (Auto) Seg Neutrophils % Seg Neuts % (Manual) 93.0 H Lymphocytes % (Manual) 4.0 L Monocytes % (Manual) Basophils % (Manual) Seg Neutrophils # Seg Neutrophils # Man 26.9 H Lymphocytes # (Manual) Monocytes # (Manual) Eosinophils # (Manual) Basophils # (Manual) PT INR D-Dimer ABG pH POC ABG pCO2 POC ABG pO2 ABG pO2 ABG HCO3 ABG O2 Saturation ABG Base Excess ABG Hemoglobin ABG Oxyhemoglobin ABG Potassium ABG Glucose Oxyhemoglobin Carboxyhemoglobin Sodium 146 H Potassium Chloride Carbon Dioxide 35 H BUN 34 H Creatinine 0.3 L D Glucose 125 H POC Glucose 147 H Calcium Ferritin Total Bilirubin Alkaline Phosphatase Lactate Dehydrogenase Total Creatine Kinase CK-MB (CK-2) Rel Index Troponin T C-Reactive Protein Total Protein 5.9 L Albumin 3.2 L Prealbumin LDL Cholesterol Direct HDL Cholesterol Arterial Blood Glucose Arterial Blood Ionized Calcium Urine WBC (Auto) 03/08/20 03/08/20 03/08/20 08:57 11:14 12:34 WBC RBC Hgb Hct MCV MCH RDW Plt Count Lymph % (Auto) [place] % (Auto) Lymph # (Auto) [place] # (Auto) Seg Neutrophils % Seg Neuts % (Manual) Lymphocytes % (Manual) Monocytes % (Manual) Basophils % (Manual) Seg Neutrophils # Seg Neutrophils # Man Lymphocytes # (Manual) Monocytes # (Manual) Eosinophils # (Manual) Basophils # (Manual) PT INR D-Dimer ABG pH POC ABG pCO2 63.1 H POC ABG pO2 ABG pO2 ABG HCO3 ABG O2 Saturation ABG Base Excess ABG Hemoglobin 10.9 L ABG Oxyhemoglobin ABG Potassium ABG Glucose 176 H Oxyhemoglobin Carboxyhemoglobin Sodium Potassium Chloride Carbon Dioxide BUN Creatinine Glucose POC Glucose 171 H Calcium Ferritin Total Bilirubin Alkaline Phosphatase Lactate Dehydrogenase Total Creatine Kinase CK-MB (CK-2) Rel Index Troponin T C-Reactive Protein Total Protein Albumin Prealbumin LDL Cholesterol Direct HDL Cholesterol Arterial Blood Glucose 176 H Arterial Blood Ionized Calcium 4.5 L Urine WBC (Auto) 10.0 H 03/08/20 03/08/20 03/09/20 18:02 23:43 05:49 WBC RBC Hgb Hct MCV MCH RDW Plt Count Lymph % (Auto) [place] % (Auto) Lymph # (Auto) [place] # (Auto) Seg Neutrophils % Seg Neuts % (Manual) Lymphocytes % (Manual) Monocytes % (Manual) Basophils % (Manual) Seg Neutrophils # Seg Neutrophils # Man Lymphocytes # (Manual) Monocytes # (Manual) Eosinophils # (Manual) Basophils # (Manual) PT INR D-Dimer ABG pH POC ABG pCO2 POC ABG pO2 ABG pO2 ABG HCO3 ABG O2 Saturation ABG Base Excess ABG Hemoglobin ABG Oxyhemoglobin ABG Potassium ABG Glucose Oxyhemoglobin Carboxyhemoglobin Sodium Potassium Chloride Carbon Dioxide BUN Creatinine Glucose POC Glucose 157 H 134 H 163 H Calcium Ferritin Total Bilirubin Alkaline Phosphatase Lactate Dehydrogenase Total Creatine Kinase CK-MB (CK-2) Rel Index Troponin T C-Reactive Protein Total Protein Albumin Prealbumin LDL Cholesterol Direct HDL Cholesterol Arterial Blood Glucose Arterial Blood Ionized Calcium Urine WBC (Auto) 03/09/20 03/09/20 03/09/20 08:35 08:35 12:11 WBC 23.4 H RBC 3.36 L Hgb 9.3 L Hct 28.8 L MCV MCH RDW 15.9 H Plt Count 521 H Lymph % (Auto) [place] % (Auto) Lymph # (Auto) [place] # (Auto) Seg Neutrophils % Seg Neuts % (Manual) 87.0 H Lymphocytes % (Manual) 4.0 L Monocytes % (Manual) 9.0 H Basophils % (Manual) Seg Neutrophils # Seg Neutrophils # Man 20.4 H Lymphocytes # (Manual) 0.9 L Monocytes # (Manual) 2.1 H Eosinophils # (Manual) Basophils # (Manual) PT INR D-Dimer ABG pH POC ABG pCO2 POC ABG pO2 ABG pO2 ABG HCO3 ABG O2 Saturation ABG Base Excess ABG Hemoglobin ABG Oxyhemoglobin ABG Potassium ABG Glucose Oxyhemoglobin Carboxyhemoglobin Sodium 147 H Potassium Chloride Carbon Dioxide 37 H BUN 63 H Creatinine Glucose 154 H POC Glucose 128 H Calcium Ferritin Total Bilirubin Alkaline Phosphatase Lactate Dehydrogenase Total Creatine Kinase CK-MB (CK-2) Rel Index Troponin T C-Reactive Protein Total Protein Albumin Prealbumin LDL Cholesterol Direct HDL Cholesterol Arterial Blood Glucose Arterial Blood Ionized Calcium Urine WBC (Auto) 03/09/20 03/10/20 03/10/20 17:51 00:25 05:41 WBC RBC Hgb Hct MCV MCH RDW Plt Count Lymph % (Auto) [place] % (Auto) Lymph # (Auto) [place] # (Auto) Seg Neutrophils % Seg Neuts % (Manual) Lymphocytes % (Manual) Monocytes % (Manual) Basophils % (Manual) Seg Neutrophils # Seg Neutrophils # Man Lymphocytes # (Manual) Monocytes # (Manual) Eosinophils # (Manual) Basophils # (Manual) PT INR D-Dimer ABG pH POC ABG pCO2 POC ABG pO2 ABG pO2 ABG HCO3 ABG O2 Saturation ABG Base Excess ABG Hemoglobin ABG Oxyhemoglobin ABG Potassium ABG Glucose Oxyhemoglobin Carboxyhemoglobin Sodium Potassium Chloride Carbon Dioxide BUN Creatinine Glucose POC Glucose 127 H 128 H 153 H Calcium Ferritin Total Bilirubin Alkaline Phosphatase Lactate Dehydrogenase Total Creatine Kinase CK-MB (CK-2) Rel Index Troponin T C-Reactive Protein Total Protein Albumin Prealbumin LDL Cholesterol Direct HDL Cholesterol Arterial Blood Glucose Arterial Blood Ionized Calcium Urine WBC (Auto) 03/10/20 03/10/20 03/10/20 06:14 06:14 12:02 WBC 18.3 H RBC 3.45 L Hgb 9.5 L Hct 29.5 L MCV MCH RDW 16.1 H Plt Count 494 H Lymph % (Auto) [place] % (Auto) Lymph # (Auto) [place] # (Auto) Seg Neutrophils % Seg Neuts % (Manual) 95.0 H Lymphocytes % (Manual) 1.0 L Monocytes % (Manual) Basophils % (Manual) Seg Neutrophils # Seg Neutrophils # Man 17.4 H Lymphocytes # (Manual) 0.2 L Monocytes # (Manual) Eosinophils # (Manual) Basophils # (Manual) PT INR D-Dimer ABG pH POC ABG pCO2 POC ABG pO2 ABG pO2 ABG HCO3 ABG O2 Saturation ABG Base Excess ABG Hemoglobin ABG Oxyhemoglobin ABG Potassium ABG Glucose Oxyhemoglobin Carboxyhemoglobin Sodium 149 H Potassium Chloride Carbon Dioxide 35 H BUN 34 H Creatinine 0.2 L D Glucose 177 H POC Glucose 151 H Calcium Ferritin Total Bilirubin Alkaline Phosphatase Lactate Dehydrogenase Total Creatine Kinase CK-MB (CK-2) Rel Index Troponin T C-Reactive Protein Total Protein Albumin Prealbumin LDL Cholesterol Direct HDL Cholesterol Arterial Blood Glucose Arterial Blood Ionized Calcium Urine WBC (Auto) 03/10/20 03/10/20 03/11/20 17:41 23:53 05:02 WBC RBC Hgb Hct MCV MCH RDW Plt Count Lymph % (Auto) [place] % (Auto) Lymph # (Auto) [place] # (Auto) Seg Neutrophils % Seg Neuts % (Manual) Lymphocytes % (Manual) Monocytes % (Manual) Basophils % (Manual) Seg Neutrophils # Seg Neutrophils # Man Lymphocytes # (Manual) Monocytes # (Manual) Eosinophils # (Manual) Basophils # (Manual) PT INR D-Dimer ABG pH POC ABG pCO2 POC ABG pO2 ABG pO2 ABG HCO3 ABG O2 Saturation ABG Base Excess ABG Hemoglobin ABG Oxyhemoglobin ABG Potassium ABG Glucose Oxyhemoglobin Carboxyhemoglobin Sodium Potassium Chloride Carbon Dioxide BUN Creatinine Glucose POC Glucose 168 H 142 H 146 H Calcium Ferritin Total Bilirubin Alkaline Phosphatase Lactate Dehydrogenase Total Creatine Kinase CK-MB (CK-2) Rel Index Troponin T C-Reactive Protein Total Protein Albumin Prealbumin LDL Cholesterol Direct HDL Cholesterol Arterial Blood Glucose Arterial Blood Ionized Calcium Urine WBC (Auto) 03/11/20 03/11/20 03/11/20 11:30 14:01 14:01 WBC 19.7 H RBC 3.04 L Hgb 8.7 L Hct 25.8 L MCV MCH RDW 15.6 H Plt Count Lymph % (Auto) [place] % (Auto) Lymph # (Auto) [place] # (Auto) Seg Neutrophils % Seg Neuts % (Manual) Lymphocytes % (Manual) Monocytes % (Manual) Basophils % (Manual) Seg Neutrophils # Seg Neutrophils # Man Lymphocytes # (Manual) Monocytes # (Manual) Eosinophils # (Manual) Basophils # (Manual) PT INR D-Dimer ABG pH POC ABG pCO2 POC ABG pO2 ABG pO2 ABG HCO3 ABG O2 Saturation ABG Base Excess ABG Hemoglobin ABG Oxyhemoglobin ABG Potassium ABG Glucose Oxyhemoglobin Carboxyhemoglobin Sodium 151 H Potassium Chloride Carbon Dioxide 37 H BUN Creatinine < 0.2 L Glucose 171 H POC Glucose 248 H Calcium Ferritin Total Bilirubin Alkaline Phosphatase Lactate Dehydrogenase Total Creatine Kinase CK-MB (CK-2) Rel Index Troponin T C-Reactive Protein Total Protein Albumin Prealbumin LDL Cholesterol Direct HDL Cholesterol Arterial Blood Glucose Arterial Blood Ionized Calcium Urine WBC (Auto) 03/11/20 03/11/20 03/12/20 17:09 23:52 04:39 WBC 19.9 H RBC 3.16 L Hgb 8.9 L Hct 27.5 L MCV MCH RDW 15.7 H Plt Count Lymph % (Auto) 6.8 L [place] % (Auto) Lymph # (Auto) [place] # (Auto) 1.2 H Seg Neutrophils % 86.0 H Seg Neuts % (Manual) Lymphocytes % (Manual) Monocytes % (Manual) Basophils % (Manual) Seg Neutrophils # 17.1 H Seg Neutrophils # Man Lymphocytes # (Manual) Monocytes # (Manual) Eosinophils # (Manual) Basophils # (Manual) PT INR D-Dimer ABG pH POC ABG pCO2 POC ABG pO2 ABG pO2 ABG HCO3 ABG O2 Saturation ABG Base Excess ABG Hemoglobin ABG Oxyhemoglobin ABG Potassium ABG Glucose Oxyhemoglobin Carboxyhemoglobin Sodium Potassium Chloride Carbon Dioxide BUN Creatinine Glucose POC Glucose 124 H 131 H Calcium Ferritin Total Bilirubin Alkaline Phosphatase Lactate Dehydrogenase Total Creatine Kinase CK-MB (CK-2) Rel Index Troponin T C-Reactive Protein Total Protein Albumin Prealbumin LDL Cholesterol Direct HDL Cholesterol Arterial Blood Glucose Arterial Blood Ionized Calcium Urine WBC (Auto) 03/12/20 03/12/20 03/12/20 04:39 05:28 11:34 WBC RBC Hgb Hct MCV MCH RDW Plt Count Lymph % (Auto) [place] % (Auto) Lymph # (Auto) [place] # (Auto) Seg Neutrophils % Seg Neuts % (Manual) Lymphocytes % (Manual) Monocytes % (Manual) Basophils % (Manual) Seg Neutrophils # Seg Neutrophils # Man Lymphocytes # (Manual) Monocytes # (Manual) Eosinophils # (Manual) Basophils # (Manual) PT INR D-Dimer ABG pH POC ABG pCO2 POC ABG pO2 ABG pO2 ABG HCO3 ABG O2 Saturation ABG Base Excess ABG Hemoglobin ABG Oxyhemoglobin ABG Potassium ABG Glucose Oxyhemoglobin Carboxyhemoglobin Sodium 147 H Potassium Chloride Carbon Dioxide 40 H BUN Creatinine < 0.2 L Glucose 175 H POC Glucose 167 H 144 H Calcium Ferritin Total Bilirubin Alkaline Phosphatase Lactate Dehydrogenase Total Creatine Kinase CK-MB (CK-2) Rel Index Troponin T C-Reactive Protein Total Protein Albumin Prealbumin LDL Cholesterol Direct HDL Cholesterol Arterial Blood Glucose Arterial Blood Ionized Calcium Urine WBC (Auto) 03/12/20 03/12/20 03/13/20 17:32 23:57 05:57 WBC RBC Hgb Hct MCV MCH RDW Plt Count Lymph % (Auto) [place] % (Auto) Lymph # (Auto) [place] # (Auto) Seg Neutrophils % Seg Neuts % (Manual) Lymphocytes % (Manual) Monocytes % (Manual) Basophils % (Manual) Seg Neutrophils # Seg Neutrophils # Man Lymphocytes # (Manual) Monocytes # (Manual) Eosinophils # (Manual) Basophils # (Manual) PT INR D-Dimer ABG pH POC ABG pCO2 POC ABG pO2 ABG pO2 ABG HCO3 ABG O2 Saturation ABG Base Excess ABG Hemoglobin ABG Oxyhemoglobin ABG Potassium ABG Glucose Oxyhemoglobin Carboxyhemoglobin Sodium Potassium Chloride Carbon Dioxide BUN Creatinine Glucose POC Glucose 141 H 137 H 161 H Calcium Ferritin Total Bilirubin Alkaline Phosphatase Lactate Dehydrogenase Total Creatine Kinase CK-MB (CK-2) Rel Index Troponin T C-Reactive Protein Total Protein Albumin Prealbumin LDL Cholesterol Direct HDL Cholesterol Arterial Blood Glucose Arterial Blood Ionized Calcium Urine WBC (Auto) 03/13/20 03/13/20 03/13/20 12:28 14:14 18:39 WBC RBC Hgb Hct MCV MCH RDW Plt Count Lymph % (Auto) [place] % (Auto) Lymph # (Auto) [place] # (Auto) Seg Neutrophils % Seg Neuts % (Manual) Lymphocytes % (Manual) Monocytes % (Manual) Basophils % (Manual) Seg Neutrophils # Seg Neutrophils # Man Lymphocytes # (Manual) Monocytes # (Manual) Eosinophils # (Manual) Basophils # (Manual) PT INR D-Dimer ABG pH POC ABG pCO2 POC ABG pO2 ABG pO2 ABG HCO3 ABG O2 Saturation ABG Base Excess ABG Hemoglobin ABG Oxyhemoglobin ABG Potassium ABG Glucose Oxyhemoglobin Carboxyhemoglobin Sodium Potassium Chloride Carbon Dioxide 39 H BUN Creatinine < 0.2 L Glucose 129 H POC Glucose 130 H 125 H Calcium Ferritin Total Bilirubin Alkaline Phosphatase Lactate Dehydrogenase Total Creatine Kinase CK-MB (CK-2) Rel Index Troponin T C-Reactive Protein Total Protein Albumin Prealbumin LDL Cholesterol Direct HDL Cholesterol Arterial Blood Glucose Arterial Blood Ionized Calcium Urine WBC (Auto) 03/13/20 03/14/20 03/14/20 23:33 05:24 08:07 WBC 16.8 H RBC 2.81 L Hgb 7.9 L Hct 23.9 L MCV MCH RDW 15.9 H Plt Count Lymph % (Auto) [place] % (Auto) Lymph # (Auto) [place] # (Auto) Seg Neutrophils % Seg Neuts % (Manual) 84.0 H Lymphocytes % (Manual) 10.0 L Monocytes % (Manual) Basophils % (Manual) Seg Neutrophils # Seg Neutrophils # Man 14.1 H Lymphocytes # (Manual) Monocytes # (Manual) Eosinophils # (Manual) Basophils # (Manual) PT INR D-Dimer ABG pH POC ABG pCO2 POC ABG pO2 ABG pO2 ABG HCO3 ABG O2 Saturation ABG Base Excess ABG Hemoglobin ABG Oxyhemoglobin ABG Potassium ABG Glucose Oxyhemoglobin Carboxyhemoglobin Sodium Potassium Chloride Carbon Dioxide BUN Creatinine Glucose POC Glucose 146 H 125 H Calcium Ferritin Total Bilirubin Alkaline Phosphatase Lactate Dehydrogenase Total Creatine Kinase CK-MB (CK-2) Rel Index Troponin T C-Reactive Protein Total Protein Albumin Prealbumin LDL Cholesterol Direct HDL Cholesterol Arterial Blood Glucose Arterial Blood Ionized Calcium Urine WBC (Auto) 03/14/20 03/14/20 03/14/20 08:07 12:21 18:26 WBC RBC Hgb Hct MCV MCH RDW Plt Count Lymph % (Auto) [place] % (Auto) Lymph # (Auto) [place] # (Auto) Seg Neutrophils % Seg Neuts % (Manual) Lymphocytes % (Manual) Monocytes % (Manual) Basophils % (Manual) Seg Neutrophils # Seg Neutrophils # Man Lymphocytes # (Manual) Monocytes # (Manual) Eosinophils # (Manual) Basophils # (Manual) PT INR D-Dimer ABG pH POC ABG pCO2 POC ABG pO2 ABG pO2 ABG HCO3 ABG O2 Saturation ABG Base Excess ABG Hemoglobin ABG Oxyhemoglobin ABG Potassium ABG Glucose Oxyhemoglobin Carboxyhemoglobin Sodium Potassium Chloride 97.0 L Carbon Dioxide 37 H BUN Creatinine < 0.2 L Glucose 129 H POC Glucose 109 H 142 H Calcium 8.3 L Ferritin Total Bilirubin Alkaline Phosphatase Lactate Dehydrogenase Total Creatine Kinase CK-MB (CK-2) Rel Index Troponin T C-Reactive Protein Total Protein Albumin Prealbumin LDL Cholesterol Direct HDL Cholesterol Arterial Blood Glucose Arterial Blood Ionized Calcium Urine WBC (Auto) 03/14/20 03/15/20 03/15/20 23:57 05:46 08:06 WBC 19.7 H RBC 3.29 L Hgb 9.1 L Hct 28.0 L MCV MCH RDW 15.9 H Plt Count Lymph % (Auto) [place] % (Auto) Lymph # (Auto) [place] # (Auto) Seg Neutrophils % Seg Neuts % (Manual) Lymphocytes % (Manual) Monocytes % (Manual) Basophils % (Manual) Seg Neutrophils # Seg Neutrophils # Man Lymphocytes # (Manual) Monocytes # (Manual) Eosinophils # (Manual) Basophils # (Manual) PT INR D-Dimer ABG pH POC ABG pCO2 POC ABG pO2 ABG pO2 ABG HCO3 ABG O2 Saturation ABG Base Excess ABG Hemoglobin ABG Oxyhemoglobin ABG Potassium ABG Glucose Oxyhemoglobin Carboxyhemoglobin Sodium Potassium Chloride Carbon Dioxide BUN Creatinine Glucose POC Glucose 157 H 118 H Calcium Ferritin Total Bilirubin Alkaline Phosphatase Lactate Dehydrogenase Total Creatine Kinase CK-MB (CK-2) Rel Index Troponin T C-Reactive Protein Total Protein Albumin Prealbumin LDL Cholesterol Direct HDL Cholesterol Arterial Blood Glucose Arterial Blood Ionized Calcium Urine WBC (Auto) 03/15/20 03/15/20 03/15/20 08:06 12:44 18:09 WBC RBC Hgb Hct MCV MCH RDW Plt Count Lymph % (Auto) [place] % (Auto) Lymph # (Auto) [place] # (Auto) Seg Neutrophils % Seg Neuts % (Manual) Lymphocytes % (Manual) Monocytes % (Manual) Basophils % (Manual) Seg Neutrophils # Seg Neutrophils # Man Lymphocytes # (Manual) Monocytes # (Manual) Eosinophils # (Manual) Basophils # (Manual) PT INR D-Dimer ABG pH POC ABG pCO2 POC ABG pO2 ABG pO2 ABG HCO3 ABG O2 Saturation ABG Base Excess ABG Hemoglobin ABG Oxyhemoglobin ABG Potassium ABG Glucose Oxyhemoglobin Carboxyhemoglobin Sodium 136 L Potassium Chloride 93.6 L Carbon Dioxide 37 H BUN Creatinine < 0.2 L Glucose 132 H POC Glucose 151 H 164 H Calcium Ferritin Total Bilirubin Alkaline Phosphatase Lactate Dehydrogenase Total Creatine Kinase CK-MB (CK-2) Rel Index Troponin T C-Reactive Protein Total Protein Albumin Prealbumin LDL Cholesterol Direct HDL Cholesterol Arterial Blood Glucose Arterial Blood Ionized Calcium Urine WBC (Auto) 03/15/20 03/16/20 03/16/20 23:26 05:39 11:58 WBC RBC Hgb Hct MCV MCH RDW Plt Count Lymph % (Auto) [place] % (Auto) Lymph # (Auto) [place] # (Auto) Seg Neutrophils % Seg Neuts % (Manual) Lymphocytes % (Manual) Monocytes % (Manual) Basophils % (Manual) Seg Neutrophils # Seg Neutrophils # Man Lymphocytes # (Manual) Monocytes # (Manual) Eosinophils # (Manual) Basophils # (Manual) PT INR D-Dimer ABG pH POC ABG pCO2 POC ABG pO2 ABG pO2 ABG HCO3 ABG O2 Saturation ABG Base Excess ABG Hemoglobin ABG Oxyhemoglobin ABG Potassium ABG Glucose Oxyhemoglobin Carboxyhemoglobin Sodium Potassium Chloride Carbon Dioxide BUN Creatinine Glucose POC Glucose 136 H 116 H 109 H Calcium Ferritin Total Bilirubin Alkaline Phosphatase Lactate Dehydrogenase Total Creatine Kinase CK-MB (CK-2) Rel Index Troponin T C-Reactive Protein Total Protein Albumin Prealbumin LDL Cholesterol Direct HDL Cholesterol Arterial Blood Glucose Arterial Blood Ionized Calcium Urine WBC (Auto) 03/16/20 03/17/20 03/17/20 23:56 04:40 04:40 WBC 18.0 H RBC 3.33 L Hgb 9.5 L Hct 28.8 L MCV MCH RDW 16.4 H Plt Count 499 H Lymph % (Auto) [place] % (Auto) Lymph # (Auto) [place] # (Auto) Seg Neutrophils % Seg Neuts % (Manual) 82.0 H Lymphocytes % (Manual) 8.0 L Monocytes % (Manual) Basophils % (Manual) Seg Neutrophils # Seg Neutrophils # Man 14.8 H Lymphocytes # (Manual) Monocytes # (Manual) 1.3 H Eosinophils # (Manual) Basophils # (Manual) 0.2 H PT INR D-Dimer ABG pH POC ABG pCO2 POC ABG pO2 ABG pO2 ABG HCO3 ABG O2 Saturation ABG Base Excess ABG Hemoglobin ABG Oxyhemoglobin ABG Potassium ABG Glucose Oxyhemoglobin Carboxyhemoglobin Sodium Potassium Chloride 97.7 L Carbon Dioxide 32 H BUN Creatinine < 0.2 L Glucose 114 H POC Glucose 131 H Calcium Ferritin Total Bilirubin Alkaline Phosphatase Lactate Dehydrogenase Total Creatine Kinase CK-MB (CK-2) Rel Index Troponin T C-Reactive Protein Total Protein Albumin Prealbumin LDL Cholesterol Direct HDL Cholesterol Arterial Blood Glucose Arterial Blood Ionized Calcium Urine WBC (Auto) 03/18/20 03/18/20 03/18/20 00:21 05:21 11:55 WBC RBC Hgb Hct MCV MCH RDW Plt Count Lymph % (Auto) [place] % (Auto) Lymph # (Auto) [place] # (Auto) Seg Neutrophils % Seg Neuts % (Manual) Lymphocytes % (Manual) Monocytes % (Manual) Basophils % (Manual) Seg Neutrophils # Seg Neutrophils # Man Lymphocytes # (Manual) Monocytes # (Manual) Eosinophils # (Manual) Basophils # (Manual) PT INR D-Dimer ABG pH POC ABG pCO2 POC ABG pO2 ABG pO2 ABG HCO3 ABG O2 Saturation ABG Base Excess ABG Hemoglobin ABG Oxyhemoglobin ABG Potassium ABG Glucose Oxyhemoglobin Carboxyhemoglobin Sodium Potassium Chloride Carbon Dioxide BUN Creatinine Glucose POC Glucose 124 H 138 H 119 H Calcium Ferritin Total Bilirubin Alkaline Phosphatase Lactate Dehydrogenase Total Creatine Kinase CK-MB (CK-2) Rel Index Troponin T C-Reactive Protein Total Protein Albumin Prealbumin LDL Cholesterol Direct HDL Cholesterol Arterial Blood Glucose Arterial Blood Ionized Calcium Urine WBC (Auto) 03/18/20 03/18/20 03/19/20 17:03 23:58 05:24 WBC RBC Hgb Hct MCV MCH RDW Plt Count Lymph % (Auto) [place] % (Auto) Lymph # (Auto) [place] # (Auto) Seg Neutrophils % Seg Neuts % (Manual) Lymphocytes % (Manual) Monocytes % (Manual) Basophils % (Manual) Seg Neutrophils # Seg Neutrophils # Man Lymphocytes # (Manual) Monocytes # (Manual) Eosinophils # (Manual) Basophils # (Manual) PT INR D-Dimer ABG pH POC ABG pCO2 POC ABG pO2 ABG pO2 ABG HCO3 ABG O2 Saturation ABG Base Excess ABG Hemoglobin ABG Oxyhemoglobin ABG Potassium ABG Glucose Oxyhemoglobin Carboxyhemoglobin Sodium Potassium Chloride Carbon Dioxide BUN Creatinine Glucose POC Glucose 128 H 128 H 115 H Calcium Ferritin Total Bilirubin Alkaline Phosphatase Lactate Dehydrogenase Total Creatine Kinase CK-MB (CK-2) Rel Index Troponin T C-Reactive Protein Total Protein Albumin Prealbumin LDL Cholesterol Direct HDL Cholesterol Arterial Blood Glucose Arterial Blood Ionized Calcium Urine WBC (Auto) 03/19/20 03/19/20 03/19/20 08:05 08:05 11:56 WBC 16.8 H RBC 3.36 L Hgb 9.4 L Hct 28.8 L MCV MCH RDW 17.4 H Plt Count 567 H Lymph % (Auto) 7.8 L [place] % (Auto) Lymph # (Auto) [place] # (Auto) 1.2 H Seg Neutrophils % 83.5 H Seg Neuts % (Manual) Lymphocytes % (Manual) Monocytes % (Manual) Basophils % (Manual) Seg Neutrophils # 14.1 H Seg Neutrophils # Man Lymphocytes # (Manual) Monocytes # (Manual) Eosinophils # (Manual) Basophils # (Manual) PT INR D-Dimer ABG pH POC ABG pCO2 POC ABG pO2 ABG pO2 ABG HCO3 ABG O2 Saturation ABG Base Excess ABG Hemoglobin ABG Oxyhemoglobin ABG Potassium ABG Glucose Oxyhemoglobin Carboxyhemoglobin Sodium Potassium Chloride Carbon Dioxide 36 H BUN Creatinine < 0.2 L Glucose 135 H POC Glucose 128 H Calcium Ferritin Total Bilirubin Alkaline Phosphatase Lactate Dehydrogenase Total Creatine Kinase CK-MB (CK-2) Rel Index Troponin T C-Reactive Protein Total Protein Albumin Prealbumin LDL Cholesterol Direct HDL Cholesterol Arterial Blood Glucose Arterial Blood Ionized Calcium Urine WBC (Auto) 03/19/20 03/20/20 03/20/20 23:59 05:12 16:52 WBC RBC Hgb Hct MCV MCH RDW Plt Count Lymph % (Auto) [place] % (Auto) Lymph # (Auto) [place] # (Auto) Seg Neutrophils % Seg Neuts % (Manual) Lymphocytes % (Manual) Monocytes % (Manual) Basophils % (Manual) Seg Neutrophils # Seg Neutrophils # Man Lymphocytes # (Manual) Monocytes # (Manual) Eosinophils # (Manual) Basophils # (Manual) PT INR D-Dimer ABG pH POC ABG pCO2 POC ABG pO2 ABG pO2 ABG HCO3 ABG O2 Saturation ABG Base Excess ABG Hemoglobin ABG Oxyhemoglobin ABG Potassium ABG Glucose Oxyhemoglobin Carboxyhemoglobin Sodium Potassium Chloride Carbon Dioxide BUN Creatinine Glucose POC Glucose 120 H 131 H 124 H Calcium Ferritin Total Bilirubin Alkaline Phosphatase Lactate Dehydrogenase Total Creatine Kinase CK-MB (CK-2) Rel Index Troponin T C-Reactive Protein Total Protein Albumin Prealbumin LDL Cholesterol Direct HDL Cholesterol Arterial Blood Glucose Arterial Blood Ionized Calcium Urine WBC (Auto) 03/20/20 03/21/20 03/21/20 23:35 04:50 07:35 WBC 15.2 H RBC 3.39 L Hgb 9.4 L Hct 29.4 L MCV MCH RDW 17.6 H Plt Count 518 H Lymph % (Auto) [place] % (Auto) Lymph # (Auto) [place] # (Auto) Seg Neutrophils % Seg Neuts % (Manual) 83.0 H Lymphocytes % (Manual) 10.0 L Monocytes % (Manual) Basophils % (Manual) 2.0 H Seg Neutrophils # Seg Neutrophils # Man 12.6 H Lymphocytes # (Manual) Monocytes # (Manual) Eosinophils # (Manual) Basophils # (Manual) 0.3 H PT INR D-Dimer ABG pH POC ABG pCO2 POC ABG pO2 ABG pO2 ABG HCO3 ABG O2 Saturation ABG Base Excess ABG Hemoglobin ABG Oxyhemoglobin ABG Potassium ABG Glucose Oxyhemoglobin Carboxyhemoglobin Sodium Potassium Chloride Carbon Dioxide BUN Creatinine Glucose POC Glucose 125 H 127 H Calcium Ferritin Total Bilirubin Alkaline Phosphatase Lactate Dehydrogenase Total Creatine Kinase CK-MB (CK-2) Rel Index Troponin T C-Reactive Protein Total Protein Albumin Prealbumin LDL Cholesterol Direct HDL Cholesterol Arterial Blood Glucose Arterial Blood Ionized Calcium Urine WBC (Auto) 03/21/20 03/21/20 03/21/20 07:35 11:45 17:22 WBC RBC Hgb Hct MCV MCH RDW Plt Count Lymph % (Auto) [place] % (Auto) Lymph # (Auto) [place] # (Auto) Seg Neutrophils % Seg Neuts % (Manual) Lymphocytes % (Manual) Monocytes % (Manual) Basophils % (Manual) Seg Neutrophils # Seg Neutrophils # Man Lymphocytes # (Manual) Monocytes # (Manual) Eosinophils # (Manual) Basophils # (Manual) PT INR D-Dimer ABG pH POC ABG pCO2 POC ABG pO2 ABG pO2 ABG HCO3 ABG O2 Saturation ABG Base Excess ABG Hemoglobin ABG Oxyhemoglobin ABG Potassium ABG Glucose Oxyhemoglobin Carboxyhemoglobin Sodium 136 L Potassium Chloride 97.7 L Carbon Dioxide 32 H BUN Creatinine < 0.2 L Glucose 103 H POC Glucose 126 H 120 H Calcium Ferritin Total Bilirubin Alkaline Phosphatase Lactate Dehydrogenase Total Creatine Kinase CK-MB (CK-2) Rel Index Troponin T C-Reactive Protein Total Protein Albumin Prealbumin LDL Cholesterol Direct HDL Cholesterol Arterial Blood Glucose Arterial Blood Ionized Calcium Urine WBC (Auto) 03/22/20 03/22/20 03/22/20 05:09 06:34 06:34 WBC 17.5 H RBC 3.52 L Hgb 10.0 L Hct 30.7 L MCV MCH RDW 17.5 H Plt Count 499 H Lymph % (Auto) [place] % (Auto) Lymph # (Auto) [place] # (Auto) Seg Neutrophils % Seg Neuts % (Manual) 80.0 H Lymphocytes % (Manual) 10.0 L Monocytes % (Manual) Basophils % (Manual) Seg Neutrophils # Seg Neutrophils # Man 14.0 H Lymphocytes # (Manual) Monocytes # (Manual) Eosinophils # (Manual) Basophils # (Manual) PT INR D-Dimer ABG pH POC ABG pCO2 POC ABG pO2 ABG pO2 ABG HCO3 ABG O2 Saturation ABG Base Excess ABG Hemoglobin ABG Oxyhemoglobin ABG Potassium ABG Glucose Oxyhemoglobin Carboxyhemoglobin Sodium Potassium Chloride 96.6 L Carbon Dioxide 38 H BUN Creatinine < 0.2 L Glucose 139 H POC Glucose 125 H Calcium Ferritin Total Bilirubin Alkaline Phosphatase Lactate Dehydrogenase Total Creatine Kinase CK-MB (CK-2) Rel Index Troponin T C-Reactive Protein Total Protein Albumin Prealbumin LDL Cholesterol Direct HDL Cholesterol Arterial Blood Glucose Arterial Blood Ionized Calcium Urine WBC (Auto) 03/22/20 03/22/20 03/22/20 11:45 18:00 23:32 WBC RBC Hgb Hct MCV MCH RDW Plt Count Lymph % (Auto) [place] % (Auto) Lymph # (Auto) [place] # (Auto) Seg Neutrophils % Seg Neuts % (Manual) Lymphocytes % (Manual) Monocytes % (Manual) Basophils % (Manual) Seg Neutrophils # Seg Neutrophils # Man Lymphocytes # (Manual) Monocytes # (Manual) Eosinophils # (Manual) Basophils # (Manual) PT INR D-Dimer ABG pH POC ABG pCO2 POC ABG pO2 ABG pO2 ABG HCO3 ABG O2 Saturation ABG Base Excess ABG Hemoglobin ABG Oxyhemoglobin ABG Potassium ABG Glucose Oxyhemoglobin Carboxyhemoglobin Sodium Potassium Chloride Carbon Dioxide BUN Creatinine Glucose POC Glucose 135 H 133 H Calcium Ferritin Total Bilirubin Alkaline Phosphatase Lactate Dehydrogenase Total Creatine Kinase CK-MB (CK-2) Rel Index Troponin T 0.113 H* C-Reactive Protein Total Protein Albumin Prealbumin LDL Cholesterol Direct HDL Cholesterol Arterial Blood Glucose Arterial Blood Ionized Calcium Urine WBC (Auto) 03/23/20 03/23/20 03/23/20 01:47 06:21 07:57 WBC RBC Hgb Hct MCV MCH RDW Plt Count Lymph % (Auto) [place] % (Auto) Lymph # (Auto) [place] # (Auto) Seg Neutrophils % Seg Neuts % (Manual) Lymphocytes % (Manual) Monocytes % (Manual) Basophils % (Manual) Seg Neutrophils # Seg Neutrophils # Man Lymphocytes # (Manual) Monocytes # (Manual) Eosinophils # (Manual) Basophils # (Manual) PT INR D-Dimer ABG pH POC ABG pCO2 POC ABG pO2 ABG pO2 ABG HCO3 ABG O2 Saturation ABG Base Excess ABG Hemoglobin ABG Oxyhemoglobin ABG Potassium ABG Glucose Oxyhemoglobin Carboxyhemoglobin Sodium Potassium Chloride Carbon Dioxide BUN Creatinine Glucose POC Glucose 130 H Calcium Ferritin Total Bilirubin Alkaline Phosphatase Lactate Dehydrogenase Total Creatine Kinase CK-MB (CK-2) Rel Index Troponin T 0.143 H* D 0.105 H* D C-Reactive Protein Total Protein Albumin Prealbumin LDL Cholesterol Direct HDL Cholesterol Arterial Blood Glucose Arterial Blood Ionized Calcium Urine WBC (Auto) 03/23/20 03/24/20 03/24/20 12:02 05:33 07:15 WBC 18.0 H RBC Hgb 11.0 L Hct 34.0 L MCV MCH RDW 17.4 H Plt Count 520 H Lymph % (Auto) [place] % (Auto) Lymph # (Auto) [place] # (Auto) Seg Neutrophils % Seg Neuts % (Manual) 88.0 H Lymphocytes % (Manual) 7.0 L Monocytes % (Manual) Basophils % (Manual) Seg Neutrophils # Seg Neutrophils # Man 15.8 H Lymphocytes # (Manual) Monocytes # (Manual) Eosinophils # (Manual) Basophils # (Manual) PT INR D-Dimer ABG pH POC ABG pCO2 POC ABG pO2 ABG pO2 ABG HCO3 ABG O2 Saturation ABG Base Excess ABG Hemoglobin ABG Oxyhemoglobin ABG Potassium ABG Glucose Oxyhemoglobin Carboxyhemoglobin Sodium Potassium Chloride Carbon Dioxide BUN Creatinine Glucose POC Glucose 137 H 112 H Calcium Ferritin Total Bilirubin Alkaline Phosphatase Lactate Dehydrogenase Total Creatine Kinase CK-MB (CK-2) Rel Index Troponin T C-Reactive Protein Total Protein Albumin Prealbumin LDL Cholesterol Direct HDL Cholesterol Arterial Blood Glucose Arterial Blood Ionized Calcium Urine WBC (Auto) 03/24/20 03/24/20 03/24/20 07:15 11:22 23:30 WBC RBC Hgb Hct MCV MCH RDW Plt Count Lymph % (Auto) [place] % (Auto) Lymph # (Auto) [place] # (Auto) Seg Neutrophils % Seg Neuts % (Manual) Lymphocytes % (Manual) Monocytes % (Manual) Basophils % (Manual) Seg Neutrophils # Seg Neutrophils # Man Lymphocytes # (Manual) Monocytes # (Manual) Eosinophils # (Manual) Basophils # (Manual) PT INR D-Dimer ABG pH POC ABG pCO2 POC ABG pO2 ABG pO2 ABG HCO3 ABG O2 Saturation ABG Base Excess ABG Hemoglobin ABG Oxyhemoglobin ABG Potassium ABG Glucose Oxyhemoglobin Carboxyhemoglobin Sodium Potassium Chloride 96.6 L Carbon Dioxide 38 H BUN Creatinine < 0.2 L Glucose 141 H POC Glucose 130 H 120 H Calcium Ferritin Total Bilirubin Alkaline Phosphatase Lactate Dehydrogenase Total Creatine Kinase CK-MB (CK-2) Rel Index Troponin T C-Reactive Protein Total Protein Albumin Prealbumin LDL Cholesterol Direct HDL Cholesterol Arterial Blood Glucose Arterial Blood Ionized Calcium Urine WBC (Auto) 03/25/20 03/25/20 03/25/20 05:48 17:53 23:18 WBC RBC Hgb Hct MCV MCH RDW Plt Count Lymph % (Auto) [place] % (Auto) Lymph # (Auto) [place] # (Auto) Seg Neutrophils % Seg Neuts % (Manual) Lymphocytes % (Manual) Monocytes % (Manual) Basophils % (Manual) Seg Neutrophils # Seg Neutrophils # Man Lymphocytes # (Manual) Monocytes # (Manual) Eosinophils # (Manual) Basophils # (Manual) PT INR D-Dimer ABG pH POC ABG pCO2 POC ABG pO2 ABG pO2 ABG HCO3 ABG O2 Saturation ABG Base Excess ABG Hemoglobin ABG Oxyhemoglobin ABG Potassium ABG Glucose Oxyhemoglobin Carboxyhemoglobin Sodium Potassium Chloride Carbon Dioxide BUN Creatinine Glucose POC Glucose 124 H 109 H 131 H Calcium Ferritin Total Bilirubin Alkaline Phosphatase Lactate Dehydrogenase Total Creatine Kinase CK-MB (CK-2) Rel Index Troponin T C-Reactive Protein Total Protein Albumin Prealbumin LDL Cholesterol Direct HDL Cholesterol Arterial Blood Glucose Arterial Blood Ionized Calcium Urine WBC (Auto) 03/26/20 03/26/20 03/26/20 05:21 08:49 08:49 WBC 19.7 H RBC Hgb 10.7 L Hct 33.5 L MCV MCH 27 L RDW 17.1 H Plt Count 480 H Lymph % (Auto) 5.7 L [place] % (Auto) Lymph # (Auto) 1.1 L [place] # (Auto) 1.2 H Seg Neutrophils % 87.7 H Seg Neuts % (Manual) Lymphocytes % (Manual) Monocytes % (Manual) Basophils % (Manual) Seg Neutrophils # 17.2 H Seg Neutrophils # Man Lymphocytes # (Manual) Monocytes # (Manual) Eosinophils # (Manual) Basophils # (Manual) PT INR D-Dimer ABG pH POC ABG pCO2 POC ABG pO2 ABG pO2 ABG HCO3 ABG O2 Saturation ABG Base Excess ABG Hemoglobin ABG Oxyhemoglobin ABG Potassium ABG Glucose Oxyhemoglobin Carboxyhemoglobin Sodium Potassium Chloride 97.2 L Carbon Dioxide 36 H BUN Creatinine < 0.2 L Glucose 127 H POC Glucose 116 H Calcium Ferritin Total Bilirubin Alkaline Phosphatase Lactate Dehydrogenase Total Creatine Kinase CK-MB (CK-2) Rel Index Troponin T C-Reactive Protein Total Protein Albumin Prealbumin LDL Cholesterol Direct HDL Cholesterol Arterial Blood Glucose Arterial Blood Ionized Calcium Urine WBC (Auto) 03/26/20 03/26/20 03/26/20 11:38 18:44 23:06 WBC RBC Hgb Hct MCV MCH RDW Plt Count Lymph % (Auto) [place] % (Auto) Lymph # (Auto) [place] # (Auto) Seg Neutrophils % Seg Neuts % (Manual) Lymphocytes % (Manual) Monocytes % (Manual) Basophils % (Manual) Seg Neutrophils # Seg Neutrophils # Man Lymphocytes # (Manual) Monocytes # (Manual) Eosinophils # (Manual) Basophils # (Manual) PT INR D-Dimer ABG pH POC ABG pCO2 POC ABG pO2 ABG pO2 ABG HCO3 ABG O2 Saturation ABG Base Excess ABG Hemoglobin ABG Oxyhemoglobin ABG Potassium ABG Glucose Oxyhemoglobin Carboxyhemoglobin Sodium Potassium Chloride Carbon Dioxide BUN Creatinine Glucose POC Glucose 120 H 111 H 134 H Calcium Ferritin Total Bilirubin Alkaline Phosphatase Lactate Dehydrogenase Total Creatine Kinase CK-MB (CK-2) Rel Index Troponin T C-Reactive Protein Total Protein Albumin Prealbumin LDL Cholesterol Direct HDL Cholesterol Arterial Blood Glucose Arterial Blood Ionized Calcium Urine WBC (Auto) 03/27/20 03/27/20 03/27/20 05:41 05:59 05:59 WBC 18.6 H RBC Hgb 10.1 L Hct 31.4 L MCV MCH RDW 17.2 H Plt Count Lymph % (Auto) 8.0 L [place] % (Auto) Lymph # (Auto) [place] # (Auto) 1.2 H Seg Neutrophils % 84.7 H Seg Neuts % (Manual) Lymphocytes % (Manual) Monocytes % (Manual) Basophils % (Manual) Seg Neutrophils # 15.8 H Seg Neutrophils # Man Lymphocytes # (Manual) Monocytes # (Manual) Eosinophils # (Manual) Basophils # (Manual) PT INR D-Dimer ABG pH POC ABG pCO2 POC ABG pO2 ABG pO2 ABG HCO3 ABG O2 Saturation ABG Base Excess ABG Hemoglobin ABG Oxyhemoglobin ABG Potassium ABG Glucose Oxyhemoglobin Carboxyhemoglobin Sodium Potassium Chloride Carbon Dioxide 34 H BUN Creatinine < 0.2 L Glucose 127 H POC Glucose 129 H Calcium Ferritin Total Bilirubin Alkaline Phosphatase Lactate Dehydrogenase Total Creatine Kinase CK-MB (CK-2) Rel Index Troponin T C-Reactive Protein Total Protein Albumin Prealbumin LDL Cholesterol Direct HDL Cholesterol Arterial Blood Glucose Arterial Blood Ionized Calcium Urine WBC (Auto) 03/27/20 03/27/20 03/28/20 17:28 23:22 05:23 WBC RBC Hgb Hct MCV MCH RDW Plt Count Lymph % (Auto) [place] % (Auto) Lymph # (Auto) [place] # (Auto) Seg Neutrophils % Seg Neuts % (Manual) Lymphocytes % (Manual) Monocytes % (Manual) Basophils % (Manual) Seg Neutrophils # Seg Neutrophils # Man Lymphocytes # (Manual) Monocytes # (Manual) Eosinophils # (Manual) Basophils # (Manual) PT INR D-Dimer ABG pH POC ABG pCO2 POC ABG pO2 ABG pO2 ABG HCO3 ABG O2 Saturation ABG Base Excess ABG Hemoglobin ABG Oxyhemoglobin ABG Potassium ABG Glucose Oxyhemoglobin Carboxyhemoglobin Sodium Potassium Chloride Carbon Dioxide BUN Creatinine Glucose POC Glucose 108 H 119 H 129 H Calcium Ferritin Total Bilirubin Alkaline Phosphatase Lactate Dehydrogenase Total Creatine Kinase CK-MB (CK-2) Rel Index Troponin T C-Reactive Protein Total Protein Albumin Prealbumin LDL Cholesterol Direct HDL Cholesterol Arterial Blood Glucose Arterial Blood Ionized Calcium Urine WBC (Auto) 03/28/20 03/28/20 03/28/20 10:28 10:28 11:36 WBC 23.6 H RBC 3.62 L Hgb 10.0 L Hct 30.8 L MCV MCH RDW 16.4 H Plt Count Lymph % (Auto) [place] % (Auto) Lymph # (Auto) [place] # (Auto) Seg Neutrophils % Seg Neuts % (Manual) 89.0 H Lymphocytes % (Manual) 5.0 L Monocytes % (Manual) Basophils % (Manual) Seg Neutrophils # Seg Neutrophils # Man 21.0 H Lymphocytes # (Manual) Monocytes # (Manual) 1.2 H Eosinophils # (Manual) Basophils # (Manual) 0.2 H PT INR D-Dimer ABG pH POC ABG pCO2 POC ABG pO2 ABG pO2 ABG HCO3 ABG O2 Saturation ABG Base Excess ABG Hemoglobin ABG Oxyhemoglobin ABG Potassium ABG Glucose Oxyhemoglobin Carboxyhemoglobin Sodium 134 L Potassium Chloride 94.2 L Carbon Dioxide 35 H BUN Creatinine < 0.2 L Glucose 134 H POC Glucose Calcium Ferritin Total Bilirubin Alkaline Phosphatase Lactate Dehydrogenase Total Creatine Kinase CK-MB (CK-2) Rel Index Troponin T C-Reactive Protein Total Protein Albumin Prealbumin LDL Cholesterol Direct HDL Cholesterol Arterial Blood Glucose Arterial Blood Ionized Calcium Urine WBC (Auto) 39.0 H 03/28/20 03/28/20 03/28/20 11:51 17:08 17:17 WBC RBC Hgb Hct MCV MCH RDW Plt Count Lymph % (Auto) [place] % (Auto) Lymph # (Auto) [place] # (Auto) Seg Neutrophils % Seg Neuts % (Manual) Lymphocytes % (Manual) Monocytes % (Manual) Basophils % (Manual) Seg Neutrophils # Seg Neutrophils # Man Lymphocytes # (Manual) Monocytes # (Manual) Eosinophils # (Manual) Basophils # (Manual) PT INR D-Dimer ABG pH POC ABG pCO2 POC ABG pO2 ABG pO2 ABG HCO3 ABG O2 Saturation ABG Base Excess ABG Hemoglobin ABG Oxyhemoglobin ABG Potassium ABG Glucose Oxyhemoglobin Carboxyhemoglobin Sodium Potassium Chloride Carbon Dioxide BUN Creatinine Glucose POC Glucose 123 H 112 H Calcium Ferritin Total Bilirubin Alkaline Phosphatase Lactate Dehydrogenase Total Creatine Kinase 47 L CK-MB (CK-2) Rel Index 4.6 H Troponin T 0.090 H C-Reactive Protein Total Protein Albumin Prealbumin LDL Cholesterol Direct HDL Cholesterol Arterial Blood Glucose Arterial Blood Ionized Calcium Urine WBC (Auto) 03/28/20 03/29/20 03/29/20 23:22 05:22 10:58 WBC RBC Hgb Hct MCV MCH RDW Plt Count Lymph % (Auto) [place] % (Auto) Lymph # (Auto) [place] # (Auto) Seg Neutrophils % Seg Neuts % (Manual) Lymphocytes % (Manual) Monocytes % (Manual) Basophils % (Manual) Seg Neutrophils # Seg Neutrophils # Man Lymphocytes # (Manual) Monocytes # (Manual) Eosinophils # (Manual) Basophils # (Manual) PT INR D-Dimer ABG pH POC ABG pCO2 POC ABG pO2 ABG pO2 ABG HCO3 ABG O2 Saturation ABG Base Excess ABG Hemoglobin ABG Oxyhemoglobin ABG Potassium ABG Glucose Oxyhemoglobin Carboxyhemoglobin Sodium Potassium Chloride Carbon Dioxide BUN Creatinine Glucose POC Glucose 122 H 116 H 133 H Calcium Ferritin Total Bilirubin Alkaline Phosphatase Lactate Dehydrogenase Total Creatine Kinase CK-MB (CK-2) Rel Index Troponin T C-Reactive Protein Total Protein Albumin Prealbumin LDL Cholesterol Direct HDL Cholesterol Arterial Blood Glucose Arterial Blood Ionized Calcium Urine WBC (Auto) 03/29/20 03/29/20 03/30/20 17:18 23:14 04:57 WBC RBC Hgb Hct MCV MCH RDW Plt Count Lymph % (Auto) [place] % (Auto) Lymph # (Auto) [place] # (Auto) Seg Neutrophils % Seg Neuts % (Manual) Lymphocytes % (Manual) Monocytes % (Manual) Basophils % (Manual) Seg Neutrophils # Seg Neutrophils # Man Lymphocytes # (Manual) Monocytes # (Manual) Eosinophils # (Manual) Basophils # (Manual) PT INR D-Dimer ABG pH POC ABG pCO2 POC ABG pO2 ABG pO2 ABG HCO3 ABG O2 Saturation ABG Base Excess ABG Hemoglobin ABG Oxyhemoglobin ABG Potassium ABG Glucose Oxyhemoglobin Carboxyhemoglobin Sodium Potassium Chloride Carbon Dioxide BUN Creatinine Glucose POC Glucose 111 H 114 H 130 H Calcium Ferritin Total Bilirubin Alkaline Phosphatase Lactate Dehydrogenase Total Creatine Kinase CK-MB (CK-2) Rel Index Troponin T C-Reactive Protein Total Protein Albumin Prealbumin LDL Cholesterol Direct HDL Cholesterol Arterial Blood Glucose Arterial Blood Ionized Calcium Urine WBC (Auto) 03/30/20 03/30/20 03/30/20 11:38 14:47 14:47 WBC 19.9 H RBC Hgb 10.9 L Hct 34.4 L MCV MCH 27 L RDW 16.5 H Plt Count 441 H Lymph % (Auto) 6.4 L [place] % (Auto) Lymph # (Auto) [place] # (Auto) 1.4 H Seg Neutrophils % 86.1 H Seg Neuts % (Manual) Lymphocytes % (Manual) Monocytes % (Manual) Basophils % (Manual) Seg Neutrophils # 17.1 H Seg Neutrophils # Man Lymphocytes # (Manual) Monocytes # (Manual) Eosinophils # (Manual) Basophils # (Manual) PT INR D-Dimer ABG pH POC ABG pCO2 POC ABG pO2 ABG pO2 ABG HCO3 ABG O2 Saturation ABG Base Excess ABG Hemoglobin ABG Oxyhemoglobin ABG Potassium ABG Glucose Oxyhemoglobin Carboxyhemoglobin Sodium 133 L Potassium Chloride 94.6 L Carbon Dioxide 33 H BUN Creatinine < 0.2 L Glucose 194 H POC Glucose 139 H Calcium Ferritin Total Bilirubin Alkaline Phosphatase Lactate Dehydrogenase Total Creatine Kinase CK-MB (CK-2) Rel Index Troponin T C-Reactive Protein Total Protein Albumin 2.8 L Prealbumin LDL Cholesterol Direct HDL Cholesterol Arterial Blood Glucose Arterial Blood Ionized Calcium Urine WBC (Auto) 03/30/20 03/31/20 03/31/20 17:07 05:02 15:21 WBC RBC Hgb Hct MCV MCH RDW Plt Count Lymph % (Auto) [place] % (Auto) Lymph # (Auto) [place] # (Auto) Seg Neutrophils % Seg Neuts % (Manual) Lymphocytes % (Manual) Monocytes % (Manual) Basophils % (Manual) Seg Neutrophils # Seg Neutrophils # Man Lymphocytes # (Manual) Monocytes # (Manual) Eosinophils # (Manual) Basophils # (Manual) PT INR D-Dimer ABG pH POC ABG pCO2 POC ABG pO2 ABG pO2 ABG HCO3 ABG O2 Saturation ABG Base Excess ABG Hemoglobin ABG Oxyhemoglobin ABG Potassium ABG Glucose Oxyhemoglobin Carboxyhemoglobin Sodium Potassium Chloride Carbon Dioxide BUN Creatinine Glucose POC Glucose 163 H 108 H 110 H Calcium Ferritin Total Bilirubin Alkaline Phosphatase Lactate Dehydrogenase Total Creatine Kinase CK-MB (CK-2) Rel Index Troponin T C-Reactive Protein Total Protein Albumin Prealbumin LDL Cholesterol Direct HDL Cholesterol Arterial Blood Glucose Arterial Blood Ionized Calcium Urine WBC (Auto) 03/31/20 03/31/20 04/01/20 17:58 23:19 05:09 WBC RBC Hgb Hct MCV MCH RDW Plt Count Lymph % (Auto) [place] % (Auto) Lymph # (Auto) [place] # (Auto) Seg Neutrophils % Seg Neuts % (Manual) Lymphocytes % (Manual) Monocytes % (Manual) Basophils % (Manual) Seg Neutrophils # Seg Neutrophils # Man Lymphocytes # (Manual) Monocytes # (Manual) Eosinophils # (Manual) Basophils # (Manual) PT INR D-Dimer ABG pH POC ABG pCO2 POC ABG pO2 ABG pO2 ABG HCO3 ABG O2 Saturation ABG Base Excess ABG Hemoglobin ABG Oxyhemoglobin ABG Potassium ABG Glucose Oxyhemoglobin Carboxyhemoglobin Sodium Potassium Chloride Carbon Dioxide BUN Creatinine Glucose POC Glucose 110 H 131 H 124 H Calcium Ferritin Total Bilirubin Alkaline Phosphatase Lactate Dehydrogenase Total Creatine Kinase CK-MB (CK-2) Rel Index Troponin T C-Reactive Protein Total Protein Albumin Prealbumin LDL Cholesterol Direct HDL Cholesterol Arterial Blood Glucose Arterial Blood Ionized Calcium Urine WBC (Auto) 04/01/20 04/01/20 04/01/20 11:50 17:01 23:21 WBC RBC Hgb Hct MCV MCH RDW Plt Count Lymph % (Auto) [place] % (Auto) Lymph # (Auto) [place] # (Auto) Seg Neutrophils % Seg Neuts % (Manual) Lymphocytes % (Manual) Monocytes % (Manual) Basophils % (Manual) Seg Neutrophils # Seg Neutrophils # Man Lymphocytes # (Manual) Monocytes # (Manual) Eosinophils # (Manual) Basophils # (Manual) PT INR D-Dimer ABG pH POC ABG pCO2 POC ABG pO2 ABG pO2 ABG HCO3 ABG O2 Saturation ABG Base Excess ABG Hemoglobin ABG Oxyhemoglobin ABG Potassium ABG Glucose Oxyhemoglobin Carboxyhemoglobin Sodium Potassium Chloride Carbon Dioxide BUN Creatinine Glucose POC Glucose 136 H 115 H 124 H Calcium Ferritin Total Bilirubin Alkaline Phosphatase Lactate Dehydrogenase Total Creatine Kinase CK-MB (CK-2) Rel Index Troponin T C-Reactive Protein Total Protein Albumin Prealbumin LDL Cholesterol Direct HDL Cholesterol Arterial Blood Glucose Arterial Blood Ionized Calcium Urine WBC (Auto) 04/02/20 04/02/20 04/02/20 05:27 11:58 17:58 WBC RBC Hgb Hct MCV MCH RDW Plt Count Lymph % (Auto) [place] % (Auto) Lymph # (Auto) [place] # (Auto) Seg Neutrophils % Seg Neuts % (Manual) Lymphocytes % (Manual) Monocytes % (Manual) Basophils % (Manual) Seg Neutrophils # Seg Neutrophils # Man Lymphocytes # (Manual) Monocytes # (Manual) Eosinophils # (Manual) Basophils # (Manual) PT INR D-Dimer ABG pH POC ABG pCO2 POC ABG pO2 ABG pO2 ABG HCO3 ABG O2 Saturation ABG Base Excess ABG Hemoglobin ABG Oxyhemoglobin ABG Potassium ABG Glucose Oxyhemoglobin Carboxyhemoglobin Sodium Potassium Chloride Carbon Dioxide BUN Creatinine Glucose POC Glucose 117 H 133 H 122 H Calcium Ferritin Total Bilirubin Alkaline Phosphatase Lactate Dehydrogenase Total Creatine Kinase CK-MB (CK-2) Rel Index Troponin T C-Reactive Protein Total Protein Albumin Prealbumin LDL Cholesterol Direct HDL Cholesterol Arterial Blood Glucose Arterial Blood Ionized Calcium Urine WBC (Auto) 04/02/20 04/03/20 04/03/20 23:12 05:11 11:11 WBC RBC Hgb Hct MCV MCH RDW Plt Count Lymph % (Auto) [place] % (Auto) Lymph # (Auto) [place] # (Auto) Seg Neutrophils % Seg Neuts % (Manual) Lymphocytes % (Manual) Monocytes % (Manual) Basophils % (Manual) Seg Neutrophils # Seg Neutrophils # Man Lymphocytes # (Manual) Monocytes # (Manual) Eosinophils # (Manual) Basophils # (Manual) PT INR D-Dimer ABG pH POC ABG pCO2 POC ABG pO2 ABG pO2 ABG HCO3 ABG O2 Saturation ABG Base Excess ABG Hemoglobin ABG Oxyhemoglobin ABG Potassium ABG Glucose Oxyhemoglobin Carboxyhemoglobin Sodium Potassium Chloride Carbon Dioxide BUN Creatinine Glucose POC Glucose 130 H 139 H 136 H Calcium Ferritin Total Bilirubin Alkaline Phosphatase Lactate Dehydrogenase Total Creatine Kinase CK-MB (CK-2) Rel Index Troponin T C-Reactive Protein Total Protein Albumin Prealbumin LDL Cholesterol Direct HDL Cholesterol Arterial Blood Glucose Arterial Blood Ionized Calcium Urine WBC (Auto) 04/03/20 04/03/20 04/04/20 16:51 23:25 05:29 WBC RBC Hgb Hct MCV MCH RDW Plt Count Lymph % (Auto) [place] % (Auto) Lymph # (Auto) [place] # (Auto) Seg Neutrophils % Seg Neuts % (Manual) Lymphocytes % (Manual) Monocytes % (Manual) Basophils % (Manual) Seg Neutrophils # Seg Neutrophils # Man Lymphocytes # (Manual) Monocytes # (Manual) Eosinophils # (Manual) Basophils # (Manual) PT INR D-Dimer ABG pH POC ABG pCO2 POC ABG pO2 ABG pO2 ABG HCO3 ABG O2 Saturation ABG Base Excess ABG Hemoglobin ABG Oxyhemoglobin ABG Potassium ABG Glucose Oxyhemoglobin Carboxyhemoglobin Sodium Potassium Chloride Carbon Dioxide BUN Creatinine Glucose POC Glucose 118 H 111 H 126 H Calcium Ferritin Total Bilirubin Alkaline Phosphatase Lactate Dehydrogenase Total Creatine Kinase CK-MB (CK-2) Rel Index Troponin T C-Reactive Protein Total Protein Albumin Prealbumin LDL Cholesterol Direct HDL Cholesterol Arterial Blood Glucose Arterial Blood Ionized Calcium Urine WBC (Auto) 04/04/20 04/04/20 04/04/20 11:47 17:41 23:05 WBC RBC Hgb Hct MCV MCH RDW Plt Count Lymph % (Auto) [place] % (Auto) Lymph # (Auto) [place] # (Auto) Seg Neutrophils % Seg Neuts % (Manual) Lymphocytes % (Manual) Monocytes % (Manual) Basophils % (Manual) Seg Neutrophils # Seg Neutrophils # Man Lymphocytes # (Manual) Monocytes # (Manual) Eosinophils # (Manual) Basophils # (Manual) PT INR D-Dimer ABG pH POC ABG pCO2 POC ABG pO2 ABG pO2 ABG HCO3 ABG O2 Saturation ABG Base Excess ABG Hemoglobin ABG Oxyhemoglobin ABG Potassium ABG Glucose Oxyhemoglobin Carboxyhemoglobin Sodium Potassium Chloride Carbon Dioxide BUN Creatinine Glucose POC Glucose 123 H 120 H 119 H Calcium Ferritin Total Bilirubin Alkaline Phosphatase Lactate Dehydrogenase Total Creatine Kinase CK-MB (CK-2) Rel Index Troponin T C-Reactive Protein Total Protein Albumin Prealbumin LDL Cholesterol Direct HDL Cholesterol Arterial Blood Glucose Arterial Blood Ionized Calcium Urine WBC (Auto) 04/05/20 04/05/20 04/05/20 05:14 12:16 18:48 WBC RBC Hgb Hct MCV MCH RDW Plt Count Lymph % (Auto) [place] % (Auto) Lymph # (Auto) [place] # (Auto) Seg Neutrophils % Seg Neuts % (Manual) Lymphocytes % (Manual) Monocytes % (Manual) Basophils % (Manual) Seg Neutrophils # Seg Neutrophils # Man Lymphocytes # (Manual) Monocytes # (Manual) Eosinophils # (Manual) Basophils # (Manual) PT INR D-Dimer ABG pH POC ABG pCO2 POC ABG pO2 ABG pO2 ABG HCO3 ABG O2 Saturation ABG Base Excess ABG Hemoglobin ABG Oxyhemoglobin ABG Potassium ABG Glucose Oxyhemoglobin Carboxyhemoglobin Sodium Potassium Chloride Carbon Dioxide BUN Creatinine Glucose POC Glucose 123 H 148 H 106 H Calcium Ferritin Total Bilirubin Alkaline Phosphatase Lactate Dehydrogenase Total Creatine Kinase CK-MB (CK-2) Rel Index Troponin T C-Reactive Protein Total Protein Albumin Prealbumin LDL Cholesterol Direct HDL Cholesterol Arterial Blood Glucose Arterial Blood Ionized Calcium Urine WBC (Auto) 04/06/20 04/06/20 04/06/20 00:47 03:26 08:24 WBC RBC Hgb Hct MCV MCH RDW Plt Count Lymph % (Auto) [place] % (Auto) Lymph # (Auto) [place] # (Auto) Seg Neutrophils % Seg Neuts % (Manual) Lymphocytes % (Manual) Monocytes % (Manual) Basophils % (Manual) Seg Neutrophils # Seg Neutrophils # Man Lymphocytes # (Manual) Monocytes # (Manual) Eosinophils # (Manual) Basophils # (Manual) PT INR D-Dimer ABG pH POC ABG pCO2 POC ABG pO2 ABG pO2 ABG HCO3 ABG O2 Saturation ABG Base Excess ABG Hemoglobin ABG Oxyhemoglobin ABG Potassium ABG Glucose Oxyhemoglobin Carboxyhemoglobin Sodium Potassium Chloride Carbon Dioxide BUN Creatinine Glucose POC Glucose 129 H 134 H 131 H Calcium Ferritin Total Bilirubin Alkaline Phosphatase Lactate Dehydrogenase Total Creatine Kinase CK-MB (CK-2) Rel Index Troponin T C-Reactive Protein Total Protein Albumin Prealbumin LDL Cholesterol Direct HDL Cholesterol Arterial Blood Glucose Arterial Blood Ionized Calcium Urine WBC (Auto) 04/06/20 04/06/20 04/06/20 11:16 16:27 23:01 WBC RBC Hgb Hct MCV MCH RDW Plt Count Lymph % (Auto) [place] % (Auto) Lymph # (Auto) [place] # (Auto) Seg Neutrophils % Seg Neuts % (Manual) Lymphocytes % (Manual) Monocytes % (Manual) Basophils % (Manual) Seg Neutrophils # Seg Neutrophils # Man Lymphocytes # (Manual) Monocytes # (Manual) Eosinophils # (Manual) Basophils # (Manual) PT INR D-Dimer ABG pH POC ABG pCO2 POC ABG pO2 ABG pO2 ABG HCO3 ABG O2 Saturation ABG Base Excess ABG Hemoglobin ABG Oxyhemoglobin ABG Potassium ABG Glucose Oxyhemoglobin Carboxyhemoglobin Sodium Potassium Chloride Carbon Dioxide BUN Creatinine Glucose POC Glucose 131 H 107 H 125 H Calcium Ferritin Total Bilirubin Alkaline Phosphatase Lactate Dehydrogenase Total Creatine Kinase CK-MB (CK-2) Rel Index Troponin T C-Reactive Protein Total Protein Albumin Prealbumin LDL Cholesterol Direct HDL Cholesterol Arterial Blood Glucose Arterial Blood Ionized Calcium Urine WBC (Auto) 04/07/20 04/07/20 04/07/20 05:24 12:41 17:40 WBC RBC Hgb Hct MCV MCH RDW Plt Count Lymph % (Auto) [place] % (Auto) Lymph # (Auto) [place] # (Auto) Seg Neutrophils % Seg Neuts % (Manual) Lymphocytes % (Manual) Monocytes % (Manual) Basophils % (Manual) Seg Neutrophils # Seg Neutrophils # Man Lymphocytes # (Manual) Monocytes # (Manual) Eosinophils # (Manual) Basophils # (Manual) PT INR D-Dimer ABG pH POC ABG pCO2 POC ABG pO2 ABG pO2 ABG HCO3 ABG O2 Saturation ABG Base Excess ABG Hemoglobin ABG Oxyhemoglobin ABG Potassium ABG Glucose Oxyhemoglobin Carboxyhemoglobin Sodium Potassium Chloride Carbon Dioxide BUN Creatinine Glucose POC Glucose 125 H 145 H 123 H Calcium Ferritin Total Bilirubin Alkaline Phosphatase Lactate Dehydrogenase Total Creatine Kinase CK-MB (CK-2) Rel Index Troponin T C-Reactive Protein Total Protein Albumin Prealbumin LDL Cholesterol Direct HDL Cholesterol Arterial Blood Glucose Arterial Blood Ionized Calcium Urine WBC (Auto) 04/07/20 04/08/20 04/08/20 23:22 05:40 11:29 WBC RBC Hgb Hct MCV MCH RDW Plt Count Lymph % (Auto) [place] % (Auto) Lymph # (Auto) [place] # (Auto) Seg Neutrophils % Seg Neuts % (Manual) Lymphocytes % (Manual) Monocytes % (Manual) Basophils % (Manual) Seg Neutrophils # Seg Neutrophils # Man Lymphocytes # (Manual) Monocytes # (Manual) Eosinophils # (Manual) Basophils # (Manual) PT INR D-Dimer ABG pH POC ABG pCO2 POC ABG pO2 ABG pO2 ABG HCO3 ABG O2 Saturation ABG Base Excess ABG Hemoglobin ABG Oxyhemoglobin ABG Potassium ABG Glucose Oxyhemoglobin Carboxyhemoglobin Sodium Potassium Chloride Carbon Dioxide BUN Creatinine Glucose POC Glucose 133 H 125 H 116 H Calcium Ferritin Total Bilirubin Alkaline Phosphatase Lactate Dehydrogenase Total Creatine Kinase CK-MB (CK-2) Rel Index Troponin T C-Reactive Protein Total Protein Albumin Prealbumin LDL Cholesterol Direct HDL Cholesterol Arterial Blood Glucose Arterial Blood Ionized Calcium Urine WBC (Auto) 04/08/20 04/09/20 04/09/20 17:43 05:47 12:22 WBC RBC Hgb Hct MCV MCH RDW Plt Count Lymph % (Auto) [place] % (Auto) Lymph # (Auto) [place] # (Auto) Seg Neutrophils % Seg Neuts % (Manual) Lymphocytes % (Manual) Monocytes % (Manual) Basophils % (Manual) Seg Neutrophils # Seg Neutrophils # Man Lymphocytes # (Manual) Monocytes # (Manual) Eosinophils # (Manual) Basophils # (Manual) PT INR D-Dimer ABG pH POC ABG pCO2 POC ABG pO2 ABG pO2 ABG HCO3 ABG O2 Saturation ABG Base Excess ABG Hemoglobin ABG Oxyhemoglobin ABG Potassium ABG Glucose Oxyhemoglobin Carboxyhemoglobin Sodium Potassium Chloride Carbon Dioxide BUN Creatinine Glucose POC Glucose 123 H 108 H 116 H Calcium Ferritin Total Bilirubin Alkaline Phosphatase Lactate Dehydrogenase Total Creatine Kinase CK-MB (CK-2) Rel Index Troponin T C-Reactive Protein Total Protein Albumin Prealbumin LDL Cholesterol Direct HDL Cholesterol Arterial Blood Glucose Arterial Blood Ionized Calcium Urine WBC (Auto) 04/09/20 04/09/20 04/10/20 17:24 23:52 06:10 WBC RBC Hgb Hct MCV MCH RDW Plt Count Lymph % (Auto) [place] % (Auto) Lymph # (Auto) [place] # (Auto) Seg Neutrophils % Seg Neuts % (Manual) Lymphocytes % (Manual) Monocytes % (Manual) Basophils % (Manual) Seg Neutrophils # Seg Neutrophils # Man Lymphocytes # (Manual) Monocytes # (Manual) Eosinophils # (Manual) Basophils # (Manual) PT INR D-Dimer ABG pH POC ABG pCO2 POC ABG pO2 ABG pO2 ABG HCO3 ABG O2 Saturation ABG Base Excess ABG Hemoglobin ABG Oxyhemoglobin ABG Potassium ABG Glucose Oxyhemoglobin Carboxyhemoglobin Sodium Potassium Chloride Carbon Dioxide BUN Creatinine Glucose POC Glucose 108 H 126 H 122 H Calcium Ferritin Total Bilirubin Alkaline Phosphatase Lactate Dehydrogenase Total Creatine Kinase CK-MB (CK-2) Rel Index Troponin T C-Reactive Protein Total Protein Albumin Prealbumin LDL Cholesterol Direct HDL Cholesterol Arterial Blood Glucose Arterial Blood Ionized Calcium Urine WBC (Auto) 04/10/20 04/10/20 04/10/20 11:27 18:11 23:24 WBC RBC Hgb Hct MCV MCH RDW Plt Count Lymph % (Auto) [place] % (Auto) Lymph # (Auto) [place] # (Auto) Seg Neutrophils % Seg Neuts % (Manual) Lymphocytes % (Manual) Monocytes % (Manual) Basophils % (Manual) Seg Neutrophils # Seg Neutrophils # Man Lymphocytes # (Manual) Monocytes # (Manual) Eosinophils # (Manual) Basophils # (Manual) PT INR D-Dimer ABG pH POC ABG pCO2 POC ABG pO2 ABG pO2 ABG HCO3 ABG O2 Saturation ABG Base Excess ABG Hemoglobin ABG Oxyhemoglobin ABG Potassium ABG Glucose Oxyhemoglobin Carboxyhemoglobin Sodium Potassium Chloride Carbon Dioxide BUN Creatinine Glucose POC Glucose 129 H 125 H 107 H Calcium Ferritin Total Bilirubin Alkaline Phosphatase Lactate Dehydrogenase Total Creatine Kinase CK-MB (CK-2) Rel Index Troponin T C-Reactive Protein Total Protein Albumin Prealbumin LDL Cholesterol Direct HDL Cholesterol Arterial Blood Glucose Arterial Blood Ionized Calcium Urine WBC (Auto) 04/11/20 04/11/20 04/11/20 05:28 11:46 23:49 WBC RBC Hgb Hct MCV MCH RDW Plt Count Lymph % (Auto) [place] % (Auto) Lymph # (Auto) [place] # (Auto) Seg Neutrophils % Seg Neuts % (Manual) Lymphocytes % (Manual) Monocytes % (Manual) Basophils % (Manual) Seg Neutrophils # Seg Neutrophils # Man Lymphocytes # (Manual) Monocytes # (Manual) Eosinophils # (Manual) Basophils # (Manual) PT INR D-Dimer ABG pH POC ABG pCO2 POC ABG pO2 ABG pO2 ABG HCO3 ABG O2 Saturation ABG Base Excess ABG Hemoglobin ABG Oxyhemoglobin ABG Potassium ABG Glucose Oxyhemoglobin Carboxyhemoglobin Sodium Potassium Chloride Carbon Dioxide BUN Creatinine Glucose POC Glucose 122 H 122 H 116 H Calcium Ferritin Total Bilirubin Alkaline Phosphatase Lactate Dehydrogenase Total Creatine Kinase CK-MB (CK-2) Rel Index Troponin T C-Reactive Protein Total Protein Albumin Prealbumin LDL Cholesterol Direct HDL Cholesterol Arterial Blood Glucose Arterial Blood Ionized Calcium Urine WBC (Auto) 04/12/20 04/12/20 04/12/20 09:07 09:07 11:39 WBC 13.1 H RBC 3.59 L Hgb 9.5 L Hct 29.8 L MCV 83 L MCH 26 L RDW 16.6 H Plt Count 591 H Lymph % (Auto) [place] % (Auto) Lymph # (Auto) [place] # (Auto) Seg Neutrophils % Seg Neuts % (Manual) 86.0 H Lymphocytes % (Manual) 7.0 L Monocytes % (Manual) Basophils % (Manual) Seg Neutrophils # Seg Neutrophils # Man 11.3 H Lymphocytes # (Manual) 0.9 L Monocytes # (Manual) Eosinophils # (Manual) Basophils # (Manual) PT INR D-Dimer ABG pH POC ABG pCO2 POC ABG pO2 ABG pO2 ABG HCO3 ABG O2 Saturation ABG Base Excess ABG Hemoglobin ABG Oxyhemoglobin ABG Potassium ABG Glucose Oxyhemoglobin Carboxyhemoglobin Sodium Potassium Chloride Carbon Dioxide 36 H BUN Creatinine < 0.2 L Glucose 132 H POC Glucose 136 H Calcium Ferritin Total Bilirubin Alkaline Phosphatase Lactate Dehydrogenase Total Creatine Kinase CK-MB (CK-2) Rel Index Troponin T C-Reactive Protein Total Protein Albumin 2.7 L Prealbumin LDL Cholesterol Direct HDL Cholesterol Arterial Blood Glucose Arterial Blood Ionized Calcium Urine WBC (Auto) 04/12/20 04/12/20 04/13/20 18:13 23:07 05:45 WBC RBC Hgb Hct MCV MCH RDW Plt Count Lymph % (Auto) [place] % (Auto) Lymph # (Auto) [place] # (Auto) Seg Neutrophils % Seg Neuts % (Manual) Lymphocytes % (Manual) Monocytes % (Manual) Basophils % (Manual) Seg Neutrophils # Seg Neutrophils # Man Lymphocytes # (Manual) Monocytes # (Manual) Eosinophils # (Manual) Basophils # (Manual) PT INR D-Dimer ABG pH POC ABG pCO2 POC ABG pO2 ABG pO2 ABG HCO3 ABG O2 Saturation ABG Base Excess ABG Hemoglobin ABG Oxyhemoglobin ABG Potassium ABG Glucose Oxyhemoglobin Carboxyhemoglobin Sodium Potassium Chloride Carbon Dioxide BUN Creatinine Glucose POC Glucose 107 H 106 H 125 H Calcium Ferritin Total Bilirubin Alkaline Phosphatase Lactate Dehydrogenase Total Creatine Kinase CK-MB (CK-2) Rel Index Troponin T C-Reactive Protein Total Protein Albumin Prealbumin LDL Cholesterol Direct HDL Cholesterol Arterial Blood Glucose Arterial Blood Ionized Calcium Urine WBC (Auto) 04/13/20 04/13/20 04/13/20 11:18 17:56 23:33 WBC RBC Hgb Hct MCV MCH RDW Plt Count Lymph % (Auto) [place] % (Auto) Lymph # (Auto) [place] # (Auto) Seg Neutrophils % Seg Neuts % (Manual) Lymphocytes % (Manual) Monocytes % (Manual) Basophils % (Manual) Seg Neutrophils # Seg Neutrophils # Man Lymphocytes # (Manual) Monocytes # (Manual) Eosinophils # (Manual) Basophils # (Manual) PT INR D-Dimer ABG pH POC ABG pCO2 POC ABG pO2 ABG pO2 ABG HCO3 ABG O2 Saturation ABG Base Excess ABG Hemoglobin ABG Oxyhemoglobin ABG Potassium ABG Glucose Oxyhemoglobin Carboxyhemoglobin Sodium Potassium Chloride Carbon Dioxide BUN Creatinine Glucose POC Glucose 133 H 110 H 114 H Calcium Ferritin Total Bilirubin Alkaline Phosphatase Lactate Dehydrogenase Total Creatine Kinase CK-MB (CK-2) Rel Index Troponin T C-Reactive Protein Total Protein Albumin Prealbumin LDL Cholesterol Direct HDL Cholesterol Arterial Blood Glucose Arterial Blood Ionized Calcium Urine WBC (Auto) 04/14/20 04/14/20 04/14/20 05:58 11:45 17:48 WBC RBC Hgb Hct MCV MCH RDW Plt Count Lymph % (Auto) [place] % (Auto) Lymph # (Auto) [place] # (Auto) Seg Neutrophils % Seg Neuts % (Manual) Lymphocytes % (Manual) Monocytes % (Manual) Basophils % (Manual) Seg Neutrophils # Seg Neutrophils # Man Lymphocytes # (Manual) Monocytes # (Manual) Eosinophils # (Manual) Basophils # (Manual) PT INR D-Dimer ABG pH POC ABG pCO2 POC ABG pO2 ABG pO2 ABG HCO3 ABG O2 Saturation ABG Base Excess ABG Hemoglobin ABG Oxyhemoglobin ABG Potassium ABG Glucose Oxyhemoglobin Carboxyhemoglobin Sodium Potassium Chloride Carbon Dioxide BUN Creatinine Glucose POC Glucose 115 H 122 H 124 H Calcium Ferritin Total Bilirubin Alkaline Phosphatase Lactate Dehydrogenase Total Creatine Kinase CK-MB (CK-2) Rel Index Troponin T C-Reactive Protein Total Protein Albumin Prealbumin LDL Cholesterol Direct HDL Cholesterol Arterial Blood Glucose Arterial Blood Ionized Calcium Urine WBC (Auto) 04/15/20 04/15/20 04/15/20 00:11 05:38 11:31 WBC RBC Hgb Hct MCV MCH RDW Plt Count Lymph % (Auto) [place] % (Auto) Lymph # (Auto) [place] # (Auto) Seg Neutrophils % Seg Neuts % (Manual) Lymphocytes % (Manual) Monocytes % (Manual) Basophils % (Manual) Seg Neutrophils # Seg Neutrophils # Man Lymphocytes # (Manual) Monocytes # (Manual) Eosinophils # (Manual) Basophils # (Manual) PT INR D-Dimer ABG pH POC ABG pCO2 POC ABG pO2 ABG pO2 ABG HCO3 ABG O2 Saturation ABG Base Excess ABG Hemoglobin ABG Oxyhemoglobin ABG Potassium ABG Glucose Oxyhemoglobin Carboxyhemoglobin Sodium Potassium Chloride Carbon Dioxide BUN Creatinine Glucose POC Glucose 120 H 109 H 123 H Calcium Ferritin Total Bilirubin Alkaline Phosphatase Lactate Dehydrogenase Total Creatine Kinase CK-MB (CK-2) Rel Index Troponin T C-Reactive Protein Total Protein Albumin Prealbumin LDL Cholesterol Direct HDL Cholesterol Arterial Blood Glucose Arterial Blood Ionized Calcium Urine WBC (Auto) 04/15/20 04/16/20 04/16/20 17:35 06:00 11:29 WBC RBC Hgb Hct MCV MCH RDW Plt Count Lymph % (Auto) [place] % (Auto) Lymph # (Auto) [place] # (Auto) Seg Neutrophils % Seg Neuts % (Manual) Lymphocytes % (Manual) Monocytes % (Manual) Basophils % (Manual) Seg Neutrophils # Seg Neutrophils # Man Lymphocytes # (Manual) Monocytes # (Manual) Eosinophils # (Manual) Basophils # (Manual) PT INR D-Dimer ABG pH POC ABG pCO2 POC ABG pO2 ABG pO2 ABG HCO3 ABG O2 Saturation ABG Base Excess ABG Hemoglobin ABG Oxyhemoglobin ABG Potassium ABG Glucose Oxyhemoglobin Carboxyhemoglobin Sodium Potassium Chloride Carbon Dioxide BUN Creatinine Glucose POC Glucose 111 H 142 H 108 H Calcium Ferritin Total Bilirubin Alkaline Phosphatase Lactate Dehydrogenase Total Creatine Kinase CK-MB (CK-2) Rel Index Troponin T C-Reactive Protein Total Protein Albumin Prealbumin LDL Cholesterol Direct HDL Cholesterol Arterial Blood Glucose Arterial Blood Ionized Calcium Urine WBC (Auto) 04/17/20 04/17/20 04/17/20 05:09 06:53 06:53 WBC 14.2 H RBC Hgb 10.1 L Hct 31.5 L MCV MCH 27 L RDW 17.2 H Plt Count 643 H Lymph % (Auto) [place] % (Auto) Lymph # (Auto) [place] # (Auto) Seg Neutrophils % Seg Neuts % (Manual) Lymphocytes % (Manual) Monocytes % (Manual) Basophils % (Manual) Seg Neutrophils # Seg Neutrophils # Man Lymphocytes # (Manual) Monocytes # (Manual) Eosinophils # (Manual) Basophils # (Manual) PT INR D-Dimer ABG pH POC ABG pCO2 POC ABG pO2 ABG pO2 ABG HCO3 ABG O2 Saturation ABG Base Excess ABG Hemoglobin ABG Oxyhemoglobin ABG Potassium ABG Glucose Oxyhemoglobin Carboxyhemoglobin Sodium Potassium Chloride 97.7 L Carbon Dioxide 38 H BUN Creatinine < 0.2 L Glucose 126 H POC Glucose 131 H Calcium Ferritin Total Bilirubin Alkaline Phosphatase Lactate Dehydrogenase Total Creatine Kinase CK-MB (CK-2) Rel Index Troponin T C-Reactive Protein Total Protein Albumin Prealbumin LDL Cholesterol Direct HDL Cholesterol Arterial Blood Glucose Arterial Blood Ionized Calcium Urine WBC (Auto) 04/17/20 04/18/20 04/18/20 11:21 00:23 04:01 WBC 15.3 H RBC Hgb 10.1 L Hct 31.9 L MCV 82 L MCH 26 L RDW 17.2 H Plt Count 665 H Lymph % (Auto) 12.9 L [place] % (Auto) Lymph # (Auto) [place] # (Auto) 1.1 H Seg Neutrophils % 78.0 H Seg Neuts % (Manual) Lymphocytes % (Manual) Monocytes % (Manual) Basophils % (Manual) Seg Neutrophils # 11.9 H Seg Neutrophils # Man Lymphocytes # (Manual) Monocytes # (Manual) Eosinophils # (Manual) Basophils # (Manual) PT INR D-Dimer ABG pH POC ABG pCO2 POC ABG pO2 ABG pO2 ABG HCO3 ABG O2 Saturation ABG Base Excess ABG Hemoglobin ABG Oxyhemoglobin ABG Potassium ABG Glucose Oxyhemoglobin Carboxyhemoglobin Sodium Potassium Chloride Carbon Dioxide BUN Creatinine Glucose POC Glucose 140 H 125 H Calcium Ferritin Total Bilirubin Alkaline Phosphatase Lactate Dehydrogenase Total Creatine Kinase CK-MB (CK-2) Rel Index Troponin T C-Reactive Protein Total Protein Albumin Prealbumin LDL Cholesterol Direct HDL Cholesterol Arterial Blood Glucose Arterial Blood Ionized Calcium Urine WBC (Auto) 04/18/20 04/18/20 04/18/20 04:01 11:29 17:30 WBC RBC Hgb Hct MCV MCH RDW Plt Count Lymph % (Auto) [place] % (Auto) Lymph # (Auto) [place] # (Auto) Seg Neutrophils % Seg Neuts % (Manual) Lymphocytes % (Manual) Monocytes % (Manual) Basophils % (Manual) Seg Neutrophils # Seg Neutrophils # Man Lymphocytes # (Manual) Monocytes # (Manual) Eosinophils # (Manual) Basophils # (Manual) PT INR D-Dimer ABG pH POC ABG pCO2 POC ABG pO2 ABG pO2 ABG HCO3 ABG O2 Saturation ABG Base Excess ABG Hemoglobin ABG Oxyhemoglobin ABG Potassium ABG Glucose Oxyhemoglobin Carboxyhemoglobin Sodium Potassium Chloride 97.0 L Carbon Dioxide 38 H BUN Creatinine < 0.2 L Glucose 117 H POC Glucose 136 H 107 H Calcium Ferritin Total Bilirubin Alkaline Phosphatase Lactate Dehydrogenase Total Creatine Kinase CK-MB (CK-2) Rel Index Troponin T C-Reactive Protein Total Protein Albumin Prealbumin LDL Cholesterol Direct HDL Cholesterol Arterial Blood Glucose Arterial Blood Ionized Calcium Urine WBC (Auto) 04/18/20 04/19/20 04/19/20 23:19 06:51 06:51 WBC 12.2 H RBC Hgb 9.8 L Hct 31.1 L MCV 82 L MCH 26 L RDW 17.2 H Plt Count 549 H Lymph % (Auto) 6.5 L [place] % (Auto) Lymph # (Auto) 0.8 L [place] # (Auto) Seg Neutrophils % 86.7 H Seg Neuts % (Manual) Lymphocytes % (Manual) Monocytes % (Manual) Basophils % (Manual) Seg Neutrophils # 10.6 H Seg Neutrophils # Man Lymphocytes # (Manual) Monocytes # (Manual) Eosinophils # (Manual) Basophils # (Manual) PT INR D-Dimer ABG pH POC ABG pCO2 POC ABG pO2 ABG pO2 ABG HCO3 ABG O2 Saturation ABG Base Excess ABG Hemoglobin ABG Oxyhemoglobin ABG Potassium ABG Glucose Oxyhemoglobin Carboxyhemoglobin Sodium Potassium Chloride 97.8 L Carbon Dioxide 38 H BUN Creatinine < 0.2 L Glucose 123 H POC Glucose 127 H Calcium Ferritin Total Bilirubin Alkaline Phosphatase Lactate Dehydrogenase Total Creatine Kinase CK-MB (CK-2) Rel Index Troponin T C-Reactive Protein Total Protein Albumin Prealbumin LDL Cholesterol Direct HDL Cholesterol Arterial Blood Glucose Arterial Blood Ionized Calcium Urine WBC (Auto) 04/19/20 04/19/20 04/20/20 13:41 18:33 05:56 WBC RBC Hgb Hct MCV MCH RDW Plt Count Lymph % (Auto) [place] % (Auto) Lymph # (Auto) [place] # (Auto) Seg Neutrophils % Seg Neuts % (Manual) Lymphocytes % (Manual) Monocytes % (Manual) Basophils % (Manual) Seg Neutrophils # Seg Neutrophils # Man Lymphocytes # (Manual) Monocytes # (Manual) Eosinophils # (Manual) Basophils # (Manual) PT INR D-Dimer ABG pH POC ABG pCO2 POC ABG pO2 ABG pO2 ABG HCO3 ABG O2 Saturation ABG Base Excess ABG Hemoglobin ABG Oxyhemoglobin ABG Potassium ABG Glucose Oxyhemoglobin Carboxyhemoglobin Sodium Potassium Chloride Carbon Dioxide BUN Creatinine Glucose POC Glucose 116 H 124 H 130 H Calcium Ferritin Total Bilirubin Alkaline Phosphatase Lactate Dehydrogenase Total Creatine Kinase CK-MB (CK-2) Rel Index Troponin T C-Reactive Protein Total Protein Albumin Prealbumin LDL Cholesterol Direct HDL Cholesterol Arterial Blood Glucose Arterial Blood Ionized Calcium Urine WBC (Auto) 04/20/20 04/20/20 04/20/20 06:28 06:28 11:46 WBC RBC Hgb 10.2 L Hct 31.5 L MCV 82 L MCH 27 L RDW 17.1 H Plt Count 546 H Lymph % (Auto) 10.0 L [place] % (Auto) 9.8 H Lymph # (Auto) 1.1 L [place] # (Auto) 1.1 H Seg Neutrophils % 78.4 H Seg Neuts % (Manual) Lymphocytes % (Manual) Monocytes % (Manual) Basophils % (Manual) Seg Neutrophils # 8.5 H Seg Neutrophils # Man Lymphocytes # (Manual) Monocytes # (Manual) Eosinophils # (Manual) Basophils # (Manual) PT INR D-Dimer ABG pH POC ABG pCO2 POC ABG pO2 ABG pO2 ABG HCO3 ABG O2 Saturation ABG Base Excess ABG Hemoglobin ABG Oxyhemoglobin ABG Potassium ABG Glucose Oxyhemoglobin Carboxyhemoglobin Sodium Potassium Chloride 97.0 L Carbon Dioxide 38 H BUN Creatinine < 0.2 L Glucose 138 H POC Glucose 130 H Calcium Ferritin Total Bilirubin Alkaline Phosphatase Lactate Dehydrogenase Total Creatine Kinase CK-MB (CK-2) Rel Index Troponin T C-Reactive Protein Total Protein Albumin Prealbumin LDL Cholesterol Direct HDL Cholesterol Arterial Blood Glucose Arterial Blood Ionized Calcium Urine WBC (Auto) 04/20/20 04/21/20 04/21/20 23:31 05:55 05:55 WBC RBC Hgb 10.0 L Hct 31.1 L MCV 82 L MCH 26 L RDW 17.0 H Plt Count 535 H Lymph % (Auto) [place] % (Auto) 9.2 H Lymph # (Auto) 1.1 L [place] # (Auto) Seg Neutrophils % 75.4 H Seg Neuts % (Manual) Lymphocytes % (Manual) Monocytes % (Manual) Basophils % (Manual) Seg Neutrophils # Seg Neutrophils # Man Lymphocytes # (Manual) Monocytes # (Manual) Eosinophils # (Manual) Basophils # (Manual) PT INR D-Dimer ABG pH POC ABG pCO2 POC ABG pO2 ABG pO2 ABG HCO3 ABG O2 Saturation ABG Base Excess ABG Hemoglobin ABG Oxyhemoglobin ABG Potassium ABG Glucose Oxyhemoglobin Carboxyhemoglobin Sodium Potassium Chloride 95.0 L Carbon Dioxide 34 H BUN Creatinine < 0.2 L Glucose 125 H POC Glucose 116 H Calcium Ferritin Total Bilirubin Alkaline Phosphatase Lactate Dehydrogenase Total Creatine Kinase CK-MB (CK-2) Rel Index Troponin T C-Reactive Protein Total Protein Albumin Prealbumin LDL Cholesterol Direct HDL Cholesterol Arterial Blood Glucose Arterial Blood Ionized Calcium Urine WBC (Auto) 04/22/20 04/22/20 04/22/20 00:01 07:45 07:45 WBC RBC Hgb 10.0 L Hct 30.7 L MCV 81 L MCH 27 L RDW 17.1 H Plt Count 490 H Lymph % (Auto) [place] % (Auto) Lymph # (Auto) [place] # (Auto) Seg Neutrophils % Seg Neuts % (Manual) 75.0 H Lymphocytes % (Manual) 11.0 L Monocytes % (Manual) 9.0 H Basophils % (Manual) Seg Neutrophils # Seg Neutrophils # Man Lymphocytes # (Manual) 0.8 L Monocytes # (Manual) Eosinophils # (Manual) Basophils # (Manual) PT INR D-Dimer ABG pH POC ABG pCO2 POC ABG pO2 ABG pO2 ABG HCO3 ABG O2 Saturation ABG Base Excess ABG Hemoglobin ABG Oxyhemoglobin ABG Potassium ABG Glucose Oxyhemoglobin Carboxyhemoglobin Sodium Potassium Chloride 96.3 L Carbon Dioxide 40 H BUN Creatinine < 0.2 L Glucose 109 H POC Glucose 110 H Calcium Ferritin Total Bilirubin Alkaline Phosphatase Lactate Dehydrogenase Total Creatine Kinase CK-MB (CK-2) Rel Index Troponin T C-Reactive Protein Total Protein Albumin Prealbumin LDL Cholesterol Direct HDL Cholesterol Arterial Blood Glucose Arterial Blood Ionized Calcium Urine WBC (Auto) 04/23/20 04/23/20 04/23/20 04:28 04:28 04:28 WBC RBC 3.64 L Hgb 9.7 L Hct 29.4 L MCV 81 L MCH 27 L RDW 17.2 H Plt Count 527 H Lymph % (Auto) [place] % (Auto) 8.9 H Lymph # (Auto) [place] # (Auto) Seg Neutrophils % Seg Neuts % (Manual) Lymphocytes % (Manual) Monocytes % (Manual) Basophils % (Manual) Seg Neutrophils # Seg Neutrophils # Man Lymphocytes # (Manual) Monocytes # (Manual) Eosinophils # (Manual) Basophils # (Manual) PT INR D-Dimer ABG pH POC ABG pCO2 POC ABG pO2 ABG pO2 ABG HCO3 ABG O2 Saturation ABG Base Excess ABG Hemoglobin ABG Oxyhemoglobin ABG Potassium ABG Glucose Oxyhemoglobin Carboxyhemoglobin Sodium Potassium Chloride 96.4 L Carbon Dioxide 32 H D BUN Creatinine < 0.2 L Glucose 134 H POC Glucose Calcium Ferritin Total Bilirubin Alkaline Phosphatase Lactate Dehydrogenase Total Creatine Kinase CK-MB (CK-2) Rel Index Troponin T 0.151 H* C-Reactive Protein Total Protein Albumin Prealbumin LDL Cholesterol Direct HDL Cholesterol 29 L Arterial Blood Glucose Arterial Blood Ionized Calcium Urine WBC (Auto) 04/23/20 04/23/20 04/24/20 06:03 23:41 05:28 WBC RBC 3.56 L Hgb 9.5 L Hct 28.9 L MCV 81 L MCH 27 L RDW 17.4 H Plt Count 462 H Lymph % (Auto) [place] % (Auto) Lymph # (Auto) [place] # (Auto) Seg Neutrophils % Seg Neuts % (Manual) 80.0 H Lymphocytes % (Manual) Monocytes % (Manual) Basophils % (Manual) Seg Neutrophils # Seg Neutrophils # Man Lymphocytes # (Manual) Monocytes # (Manual) Eosinophils # (Manual) Basophils # (Manual) PT INR D-Dimer ABG pH POC ABG pCO2 POC ABG pO2 ABG pO2 ABG HCO3 ABG O2 Saturation ABG Base Excess ABG Hemoglobin ABG Oxyhemoglobin ABG Potassium ABG Glucose Oxyhemoglobin Carboxyhemoglobin Sodium Potassium Chloride Carbon Dioxide BUN Creatinine Glucose POC Glucose 132 H 117 H Calcium Ferritin Total Bilirubin Alkaline Phosphatase Lactate Dehydrogenase Total Creatine Kinase CK-MB (CK-2) Rel Index Troponin T C-Reactive Protein Total Protein Albumin Prealbumin LDL Cholesterol Direct HDL Cholesterol Arterial Blood Glucose Arterial Blood Ionized Calcium Urine WBC (Auto) 04/24/20 04/24/20 04/24/20 05:28 05:28 05:33 WBC RBC Hgb Hct MCV MCH RDW Plt Count Lymph % (Auto) [place] % (Auto) Lymph # (Auto) [place] # (Auto) Seg Neutrophils % Seg Neuts % (Manual) Lymphocytes % (Manual) Monocytes % (Manual) Basophils % (Manual) Seg Neutrophils # Seg Neutrophils # Man Lymphocytes # (Manual) Monocytes # (Manual) Eosinophils # (Manual) Basophils # (Manual) PT INR D-Dimer ABG pH POC ABG pCO2 POC ABG pO2 ABG pO2 ABG HCO3 ABG O2 Saturation ABG Base Excess ABG Hemoglobin ABG Oxyhemoglobin ABG Potassium ABG Glucose Oxyhemoglobin Carboxyhemoglobin Sodium Potassium Chloride 96.1 L Carbon Dioxide 40 H D BUN Creatinine < 0.2 L Glucose 115 H POC Glucose 109 H Calcium Ferritin Total Bilirubin Alkaline Phosphatase Lactate Dehydrogenase Total Creatine Kinase CK-MB (CK-2) Rel Index Troponin T 0.181 H* C-Reactive Protein Total Protein Albumin Prealbumin LDL Cholesterol Direct HDL Cholesterol Arterial Blood Glucose Arterial Blood Ionized Calcium Urine WBC (Auto) 04/24/20 11:17 WBC RBC Hgb Hct MCV MCH RDW Plt Count Lymph % (Auto) [place] % (Auto) Lymph # (Auto) [place] # (Auto) Seg Neutrophils % Seg Neuts % (Manual) Lymphocytes % (Manual) Monocytes % (Manual) Basophils % (Manual) Seg Neutrophils # Seg Neutrophils # Man Lymphocytes # (Manual) Monocytes # (Manual) Eosinophils # (Manual) Basophils # (Manual) PT INR D-Dimer ABG pH POC ABG pCO2 POC ABG pO2 ABG pO2 ABG HCO3 ABG O2 Saturation ABG Base Excess ABG Hemoglobin ABG Oxyhemoglobin ABG Potassium ABG Glucose Oxyhemoglobin Carboxyhemoglobin Sodium Potassium Chloride Carbon Dioxide BUN Creatinine Glucose POC Glucose 117 H Calcium Ferritin Total Bilirubin Alkaline Phosphatase Lactate Dehydrogenase Total Creatine Kinase CK-MB (CK-2) Rel Index Troponin T C-Reactive Protein Total Protein Albumin Prealbumin LDL Cholesterol Direct HDL Cholesterol Arterial Blood Glucose Arterial Blood Ionized Calcium Urine WBC (Auto) Allied health notes reviewed: nursing
[2020-04-24] MEDS: traMADol 50 MG TAB PO PRN (19:45)
[2020-04-24] MEDS: SENNOSIDES 8.6 MG TAB PO SCH (22:10)
[2020-04-24] MEDS: ENOXAPARIN 40 MG/0.4 ML INJ SUB-Q SCH (22:10)
[2020-04-24] MEDS: ZOLPIDEM 5 MG TAB PO PRN (22:10)
[2020-04-25] MEDS: MORPHINE 2 MG/1 ML INJ IV PRN ×3 (04:31→21:31)
[2020-04-25] MEDS: ALPRAZolam 0.5 MG TAB PO PRN ×2 (04:31→17:19)
[2020-04-25] MEDS: GLYCOPYRROLATE 1 MG TAB PO SCH ×3 (07:27→19:51)
[2020-04-25] MEDS: MAGIC MOUTHWASH 30ML PO SCH ×3 (07:40→19:52)
[2020-04-25 08:12] LABS: Blood Urea Nitrogen 18 mg/dL (9-20); Calcium 9.1 mg/dL (8.4-10.2); Hemolysis Index 24
[2020-04-25 08:13] LABS: Hematocrit 31.7 % (35.5-45.6); Mean Corpuscular HGB Conc 32 % (32-34); Mean Corpuscular Volume 82 fl (84-94); Platelet Count 564 K/mm3 (140-440); Red Blood Count 3.87 M/mm3 (3.65-5.03); Red Cell Distribution Width 17.5 % (13.2-15.2)
[2020-04-25 08:14] LABS: BUN/Creatinine Ratio 90
[2020-04-25] MEDS: PREGABALIN 75 MG CAP PO SCH ×2 (09:15→21:30)
[2020-04-25] MEDS: LANSOPRAZOLE 30 MG SOLUTAB FEEDTUBE SCH (09:15)
[2020-04-25] MEDS: TAMSULOSIN 0.4 MG CAP PO SCH (09:15)
[2020-04-25] MEDS: LIDOCAINE 5% 1 EACH PATCH TD SCH (09:15)
[2020-04-25] MEDS: BACLOFEN 10 MG TAB PO SCH ×2 (09:15→21:30)
[2020-04-25] MEDS: DOCUSATE SODIUM 100 MG/10 ML ORAL LIQD FEEDTUBE SCH ×2 (09:15→21:29)
[2020-04-25] MEDS: METOPROLOL TARTRATE 25 MG TAB PO SCH ×2 (09:15→21:30)
[2020-04-25] MEDS: SODIUM HYPOCHLORITE, DAKIN'S 1/2 STRENGTH (0.25%) 473 ML TOPICAL SOLN TP SCH ×2 (09:16→21:50)
[2020-04-25 10:36] LABS: Hypochromasia 1+; Total Cells Counted 100
[2020-04-25 10:37] LABS: Anisocytosis Few; Platelet Estimate Consistent w Auto; Schistocytes 1+
--- NOTE | 2020-04-25 12:39 | Progress Note ---
Assessment and Plan Assessment and plan: Assessment and plan: --Acute hypoxic hypercapnic respiratory failure; S/p tracheostomy on ventilatory support etiology secondary to sepsis, ALS, multifocal pneumonia (Covid negative). Pulmonary following --ALS --Oral thrush Nystatin/Magic mouthwash swish and spit --Constipation; Patient already received Dulcolax suppository and Colace Received milk of magnesia, with relief --History of ALS - Stable --Elevated D-dimers; imaging studies negative for PE and DVT --Bilateral pneumonia; probably community-acquired Completed the treatment, continue supportive care --Sepsis secondary to pneumonia; completed the treatment resolved --Elevated troponin non-ST elevation [place] type II Continue current management --Febrile illness; resolved ,secondary to pneumonia Complete antibiotics , resolved --DVT prophylaxis; Lovenox. 02/25/2020. CTA of the chest reveals no PE but does illustrate the bilateral pneumonia. Doppler ultrasound also negative for DVT. Blood cultures are pending. Await COVID-19 testing. Patient currently requiring BiPAP IPAP 24/EPAP 6 with FiO2 of 25%. Continue O2 and BiPAP as clinically indicated. ID and pulmonary consulted. 02/26/2020. Blood cultures are negative x48 hours and Covid testing negative as well. Continue antibiotics per ID recommendations for community-acquired bilateral pneumonia. Cardiology consultation for elevated troponin. Check echocardiogram. 02/27/2020. Events of yesterday noted with asystole following V. fib arrest. Patient currently on AC mode rate 20, tidal volume 400, FiO2 50% and a PEEP of 6. Follow-up echocardiogram for elevated troponin. Cardiology suspects NSTEMI Type 2 in the setting of acute resp failure. Chest CTA and BLE Dopplers neg. we will discontinue Decadron given the Covid PCR is negative. 02/28/2020. I spoke with the sister Felisa Eli who is the power of corporate attorney regarding advanced directives and she instructed me that she would like to continue with aggressive care at this time. I informed her of the guarded prognosis and high mortality/morbidity and she voiced understanding. Patient currently with AC mode ventilation rate 18, tidal volume 400, FiO2 40% and a PEEP of 6. Continue antibiotics for pneumonia. ID previously consulted. Also consult neurology with regards to ALS. 02/29/2020; patient is intubated and on CPAP patient is alert and oriented. Patient has ALS. Dr. Álvarez spoke with his sister and she wants aggressive care. Continue antibiotics for pneumonia. Neurology consulted for ALS. Prognosis poor 03/01/2020; patient is intubated and on CPAP, patient is alert and oriented. I spoke with his 2 sisters about the management plan. 03/02/2020; patient is intubated and on CPAP. Patient was alert and oriented. I spoke with Dr. mohr and he thinks patient may need mechanical ventilation, likely his disease progressed. Dr. Flowers did debridement this morning. 03/03/2020; patient is intubated and on CPAP, patient was on trilogy and BiPAP at home. Patient has ALS. on spontaneous breathing trial. Patient is alert and oriented but quadriplegic. Patient has severe bilateral pneumonia and is on cefepime and Vanco, ID is following. Patient has sacral decubitus ulcer and debridement was done by Dr. Flowers and there is no osteomyelitis. 03/05. Patient still on broad-spectrum antibiotics. Status post sacral decubitus ulcer debridements-no osteomyelitis. Patient is on AC 25/400/30% PEEP 5. No blood gas results today. 03/06. Plan for tracheostomy by surgery. Still remains intubated. Labs reviewed-sodium 150. Started on free water 200 every 8hr. trend sodium. 03/07: s/p trach placement today, patient placed back on mechanical ventilation with trach. Plan to resume tube feeding with NG tube. Continue to monitor vitals, monitor BMP. 03/08: Patient noted to have distended abdomen with low urinary output. Obtain bladder scan rule out urine retention, UA and urine culture, continue to follow clinically. 03/09: Patient noted to have low blood pressure with SBP as low as 70s. Ordered for 500 mils normal saline bolus. CT abdomen showed bladder outlet obstruction, urology consulted. 03/10: placed on drake by urology o/n, improved urine outpt. cont to monitor BMP. resuded TF - cont free water with TF. wean off from vent as tolerated. 03/11: Vitals stable. cont TF, wean off from vent as tolerated. start on 1/2 NS for hypernatremia - follow BMP 03/12: wean off vent as tolerated, plan for speech eval, cont Tf for now, cont iv fluid 03/13: unable to wean off from vent, unable to do speech therapy eval. will need PEG tube, cont supportive care for now, cont NG tube feeding 03/14: consulted GI for PEg placemnet, cont supportive care. remains on vent at night 03/15: Discussed with GI, plan for PEG tube placement possibly tomorrow. Continue supportive care and wean off from vent as tolerated. Hold Lovenox dose tonight. 03/16: family didnot consent for PEG placement yesterday. I spoke with the daughter today and she is now agreeable for PEG tube. I explained the necessity of the procedure with RN to the patient also and he nodded started on tube feeding, for the procedure. will cont supportive care. planned for PEG tube placement tomorrow. 03/17: s/p PEG placement today, patient tolerated well, cont supportive care 03/18: Started on tube feeding with new PEG tube, continue to wean off vent as tolerated 03/19: cont to monitor with supportive care, wean off vent as tolerated 03/20: Continue to wean off vent as tolerated -but failing weaning trial. Still requiring vent support at night. Currently on PEG tube for tube feed. 03/21. Pt with PSV trials with FiO@ 30%, PEEP 6, PS 10. Currently on PEG tube for tube feed. 03/22/2020. Continue PSV trials per pulmonary. Continue bronchodilators. Patient tolerating tube feedings. Continue Robinul for secretion control. 03/23/2020. Continue PSV trials per pulmonary. Continue bronchodilators. Continue Scopolamine and Robinul for secretion control. Trach care/airway management. Mobility protocols for pressure ulcer prophylaxis. LTAC evaluation per case management 03/24/2020. Continue PSV trials with current settings pressure support 10, PEEP 6 and FiO2 30%. Continue bronchodilators/nebulizer. Continue Scopolamine and Robinul for secretion control. Trach care/airway management. Mobility protocols for pressure ulcer prophylaxis. LTAC evaluation per case management 03/25/2020. Pulmonary to proceed with T-piece trials today. Continue bronchodilators/nebulizer. Continue Scopolamine and Robinul for secretion control. Trach care/airway management. Mobility protocols for pressure ulcer prophylaxis. 03/26/2020. Patient currently with PSV 10/6 at FiO2 of 30%. Continue weaning and T-piece trials per protocol. Continue bronchodilators/nebulizer. Continue Scopolamine and Robinul for secretion control. Trach care/airway management. Mobility protocols for pressure ulcer prophylaxis. Continue tube feeding with a spiration precautions. 03/27/2020. Patient currently with PSV 01/31 at FiO2 of 30%. Continue weaning and T-piece trials per protocol. Continue bronchodilators/nebulizer. Continue Scopolamine and Robinul for secretion control. Trach care/airway management. Mobility protocols for pressure ulcer prophylaxis. Continue tube feeding with aspiration precautions. 03/28. Had temp 100.7F. He has been off antibiotics. Will send blood culture, ua, urine culture and chest xray. Had chest pain overnight and trop was elevated as well. Cardiology to evaluate 03/29. Has back pain due to position. He mentions his chest pain is positional. Has no other complaints. Still on mechanical ventilation 03/30. No chest pain today. Labs reviewed. Discussed chest pain with cardiology and team advised no further work up at this time. Can follow up with cardiology in the office after hospitalization 03/31. Lidocaine patch for lower back pain. 04/01. Discharge planning underway. CM notes reviewed. Discussed with daughter 04/02 - . CM trying to arrange discharge. Continue PSV trials. Discussed with patients significant other 04/04/2020; CM is working for discharge arrangement. Continue PSV trials. 04/05/2020; patient was seen and evaluated this morning and no change from baseline. Continue with PSV trials. Follow with nitro man for discharge planning. 04/06/2020;patient was seen and evaluated this morning and no change from baseline. Continue with PSV trials. Follow with nitro man for discharge planning. 04/07/2020; patient was seen and evaluated this morning and no change from baseline. Continue with PSV trials. Follow with nitro man for discharge planning. 04/08/2020; patient is vent dependent. Discharge is per nitro man. 04/09/2020 patient is vent dependent, possible LTAC placement 04/10/2020; tracheostomy on vent, vent dependent pending LTAC placement 04/11/2020; clinically no change, tracheostomy on ventilatory support, wean as tolerated, awaiting placement 04/12/2020; remains on ventilatory support, unable to wean, patient wants to see a speech therapist for sound box However we cannot try that as long as he is on ventilatory support, once he is weaned off vent We will consult speech therapist, plan of care reviewed with the patient and his nurse 04/14/2020; clinically no change, on ventilatory support, complains of constipation, milk of magnesia Closely monitor the patient and adjust the management as needed 04/15/2020; patient has some oral thrush on the tongue, will give Magic mouthwash/nystatin swish and spit Wean off vent as tolerated 04/16 patient is alert and oriented, unable to comprehend what he is trying to tell but appears to complain of some pain, no acute events overnight, all interdisciplinary notes reviewed. Waiting for LTAC versus senior living facility placement 04/17/2020. Continue supportive care with mechanical ventilation. Patient currently on AC mode rate 10, tidal volume 400 FiO2 30% with a PEEP of 6. Discharge planning per case management. 04/18/2020. Patient remains on mechanical ventilation AC mode rate 10, tidal volume 400, FiO2 30% and PEEP of 6. Continue spontaneous breathing trials as tolerated. Previously, patient was considered for discharge home with skilled staff providing care for 12 hours 7 days/week. Continue discussed with case management discharge planning. 04/19/20. Patient remains on mechanical ventilation AC mode rate 10, tidal volume 400, FiO2 30% and PEEP of 6. Continue spontaneous breathing trials as tolerated. 04/20/2020. Patient remains on mechanical ventilation AC mode rate 10, tidal volume 400, FiO2 30% and PEEP of 6. Continue spontaneous breathing trials as tolerated. 04/21/2020. Patient remains on mechanical ventilation AC mode rate 10, tidal volume 400, FiO2 30% and PEEP of 6. Continue tracheostomy care, secretion control and airway management. Continue spontaneous breathing trials as tolerated. 04/22/2020. Patient remains on mechanical ventilation AC mode rate 10, tidal volume 400, FiO2 30% and PEEP of 6. Continue tracheostomy care, secretion control and airway management. Continue spontaneous breathing trials as tolerated. 04/23/2020. Patient on mechanical ventilation AC mode rate 18, tidal volume 450, FiO2 30% and PEEP of 6. Continue tracheostomy care, secretion control and airway management. Continue spontaneous breathing trials as tolerated. Continue Robinul and scopolamine for secretions. Continue baclofen. 04/24/2020. Patient remains on AC mode ventilation rate 10, tidal volume 400, FiO2 30% and PEEP of 6. Continue tracheostomy care, secretion control and airway management. Continue spontaneous breathing trials as tolerated. Continue Robinul and scopolamine for secretions. Continue baclofen. Continue Xanax for anxiety and Ambien for sleep. Await case management follow-up with regards to discharge planning. 04/25/2020. Patient remains on AC mode ventilation rate 10, tidal volume 400, FiO2 30% and PEEP of 6. Continue tracheostomy care, secretion control and airway management. Continue spontaneous breathing trials as tolerated. Continue Robinul and scopolamine for secretions. Continue baclofen. Continue Xanax for anxiety and Ambien for sleep. Await case management follow-up with regards to discharge planning. History Interval history: Patient seen and examined at bedside Trach in place Hospitalist Physical - Physical exam Narrative exam: VITAL SIGNS: Reviewed. GENERAL: Awake. trach to vent HEAD: No signs of head trauma. EYES: Pupils are equal. Extraocular motions intact. EARS: Hearing grossly intact. MOUTH: Oropharynx is normal. NECK: No adenopathy, no JVD. CHEST: Coarse breath sounds bilaterally CARDIAC: Regular rate and rhythm. S1 and S2, without murmurs, gallops, or rubs. VASCULAR: No Edema. Peripheral pulses normal and equal in all extremities. ABDOMEN: Soft, non tender and non distended. No rebound or guarding, and no masses palpated. Bowel Sounds normal. NEUROLOGIC EXAM: Awake SKIN: No obvious lesions - Constitutional Vitals: Temp Pulse Resp BP Pulse Ox 98.2 F 100 H 20 100/72 98 04/25/20 12:00 04/25/20 12:00 04/25/20 12:00 04/25/20 12:00 04/25/20 12:00 HEART Score - HEART Score Troponin: Troponin T 0.181 ng/mL (0.00-0.029) H* 04/24/20 05:28 Results - Labs CBC & Chem 7: 04/25/20 06:34 04/25/20 06:34 Labs: Laboratory Last Values WBC 11.7 K/mm3 (4.5-11.0) H 04/25/20 06:34 RBC 3.87 M/mm3 (3.65-5.03) 04/25/20 06:34 Hgb 10.0 gm/dl (11.8-15.2) L 04/25/20 06:34 Hct 31.7 % (35.5-45.6) L 04/25/20 06:34 MCV 82 fl (84-94) L 04/25/20 06:34 MCH 26 pg (28-32) L 04/25/20 06:34 MCHC 32 % (32-34) 04/25/20 06:34 RDW 17.5 % (13.2-15.2) H 04/25/20 06:34 Plt Count 564 K/mm3 (140-440) H 04/25/20 06:34 Lymph % (Auto) 23.6 % (13.4-35.0) 04/23/20 04:28 Wheeler % (Auto) 8.9 % (0.0-7.3) H 04/23/20 04:28 Eos % (Auto) 2.1 % (0.0-4.3) 04/23/20 04:28 Baso % (Auto) 0.7 % (0.0-1.8) 04/23/20 04:28 Lymph # (Auto) 1.9 K/mm3 (1.2-5.4) 04/23/20 04:28 Wheeler # (Auto) 0.7 K/mm3 (0.0-0.8) 04/23/20 04:28 Eos # (Auto) 0.2 K/mm3 (0.0-0.4) 04/23/20 04:28 Baso # (Auto) 0.1 K/mm3 (0.0-0.1) 04/23/20 04:28 Add Manual Diff Complete 04/25/20 06:34 Total Counted 100 04/25/20 06:34 Seg Neutrophils % 64.7 % (40.0-70.0) 04/23/20 04:28 Seg Neuts % (Manual) 78.0 % (40.0-70.0) H 04/25/20 06:34 Band Neutrophils % 1.0 % 04/22/20 07:45 Lymphocytes % (Manual) 10.0 % (13.4-35.0) L 04/25/20 06:34 Reactive Lymphs % (Man) 1.0 % 04/22/20 07:45 Monocytes % (Manual) 9.0 % (0.0-7.3) H 04/25/20 06:34 Eosinophils % (Manual) 2.0 % (0.0-4.3) 04/25/20 06:34 Basophils % (Manual) 1.0 % (0.0-1.8) 04/25/20 06:34 Metamyelocytes % 3.0 % 04/12/20 09:07 Myelocytes % 0 % 03/28/20 10:28 Promyelocytes % 0 % 03/28/20 10:28 Blast Cells % 0 % 03/28/20 10:28 Nucleated RBC % Not Reportable 04/25/20 06:34 Seg Neutrophils # 5.2 K/mm3 (1.8-7.7) 04/23/20 04:28 Seg Neutrophils # Man 9.1 K/mm3 (1.8-7.7) H 04/25/20 06:34 Band Neutrophils # 0.0 K/mm3 04/25/20 06:34 Lymphocytes # (Manual) 1.2 K/mm3 (1.2-5.4) 04/25/20 06:34 Abs React Lymphs (Man) 0.0 K/mm3 04/25/20 06:34 Monocytes # (Manual) 1.1 K/mm3 (0.0-0.8) H 04/25/20 06:34 Eosinophils # (Manual) 0.2 K/mm3 (0.0-0.4) 04/25/20 06:34 Basophils # (Manual) 0.1 K/mm3 (0.0-0.1) 04/25/20 06:34 Metamyelocytes # 0.0 K/mm3 04/25/20 06:34 Myelocytes # 0.0 K/mm3 04/25/20 06:34 Promyelocytes # 0.0 K/mm3 04/25/20 06:34 Blast Cells # 0.0 K/mm3 04/25/20 06:34 WBC Morphology Not Reportable 04/25/20 06:34 Hypersegmented Neuts Not Reportable 04/25/20 06:34 Hyposegmented Neuts Not Reportable 04/25/20 06:34 Hypogranular Neuts Not Reportable 04/25/20 06:34 Smudge Cells Not Reportable 04/25/20 06:34 Toxic Granulation Not Reportable 04/25/20 06:34 Toxic Vacuolation Not Reportable 04/25/20 06:34 Dohle Bodies Not Reportable 04/25/20 06:34 Pelger-Huet Anomaly Not Reportable 04/25/20 06:34 Robert Rods Not Reportable 04/25/20 06:34 Platelet Estimate Consistent w auto 04/25/20 06:34 Clumped Platelets Not Reportable 04/25/20 06:34 Plt Clumps, EDTA Not Reportable 04/25/20 06:34 Large Platelets Not Reportable 04/25/20 06:34 Giant Platelets Not Reportable 04/25/20 06:34 Platelet Satelliting Not Reportable 04/25/20 06:34 Plt Morphology Comment Not Reportable 04/25/20 06:34 RBC Morphology Not Reportable 04/25/20 06:34 Dimorphic RBCs Not Reportable 04/25/20 06:34 Polychromasia Not Reportable 04/25/20 06:34 Hypochromasia 1+ 04/25/20 06:34 Poikilocytosis Not Reportable 04/25/20 06:34 Anisocytosis Few 04/25/20 06:34 Microcytosis Not Reportable 04/25/20 06:34 Macrocytosis Not Reportable 04/25/20 06:34 Spherocytes Not Reportable 04/25/20 06:34 Pappenheimer Bodies Not Reportable 04/25/20 06:34 Sickle Cells Not Reportable 04/25/20 06:34 Target Cells Not Reportable 04/25/20 06:34 Stomatocytes Few 03/17/20 04:40 Tear Drop Cells Not Reportable 04/25/20 06:34 Ovalocytes Not Reportable 04/25/20 06:34 Helmet Cells Not Reportable 04/25/20 06:34 Gregory[place] Bodies Not Reportable 04/25/20 06:34 Winton Rings Not Reportable 04/25/20 06:34 Riaz Cells Not Reportable 04/25/20 06:34 Bite Cells Not Reportable 04/25/20 06:34 Crenated Cell Not Reportable 04/25/20 06:34 Elliptocytes Not Reportable 04/25/20 06:34 Acanthocytes (Spur) Not Reportable 04/25/20 06:34 Rouleaux Not Reportable 04/25/20 06:34 Hemoglobin C Crystals Not Reportable 04/25/20 06:34 Schistocytes 1+ 04/25/20 06:34 Malaria parasites Not Reportable 04/25/20 06:34 Colton Bodies Not Reportable 04/25/20 06:34 Hem Pathologist Commnt No 04/25/20 06:34 PT 15.6 Sec. (12.2-14.9) H 02/24/20 09:19 INR 1.21 (0.87-1.13) H 02/24/20 09:19 APTT 25.4 Sec. (24.2-36.6) 02/24/20 09:19 D-Dimer 1311.96 ng/mlDDU (0-234) H 02/24/20 09:19 ABG pH 7.371 (7.320-7.450) 03/08/20 12:34 POC ABG pCO2 63.1 mmHg (32.0-48.0) H 03/08/20 12:34 ABG pCO2 60.1 mm Hg 03/06/20 04:34 POC ABG pO2 90.5 mmHg (83-108) 03/08/20 12:34 ABG pO2 88.6 mm Hg (80.0-90.0) 03/06/20 04:34 POC ABG HCO3 35.7 03/08/20 12:34 ABG HCO3 37.9 mmol/L (20.0-26.0) H 03/06/20 04:34 ABG O2 Saturation 97.0 % (95.0-99.0) 03/06/20 04:34 ABG O2 Content 14.3 (0.0-44) 03/06/20 04:34 POC ABG Base Excess 8.7 03/08/20 12:34 ABG Base Excess 11.4 mmol/L (-2.0-3.0) H 03/06/20 04:34 ABG Hemoglobin 10.9 (12.0-17.5) L 03/08/20 12:34 ABG Oxyhemoglobin 95.9 (94-98) 03/08/20 12:34 ABG Carboxyhemoglobin 1.7 % (0.0-5.0) 03/06/20 04:34 ABG Methemoglobin 0.3 (0.0-1.5) 03/08/20 12:34 ABG Sodium 143.6 mmol/L (136.0-145.0) 03/08/20 12:34 ABG Potassium 3.8 mmol/L (3.40-4.50) 03/08/20 12:34 ABG Chloride 102.0 mmol/L (98-107) 03/08/20 12:34 ABG Glucose 176 mg/dL (65-95) H 03/08/20 12:34 Oxyhemoglobin 94.7 % (95.0-99.0) L 03/06/20 04:34 Carboxyhemoglobin 0.7 (0.5-1.5) 03/08/20 12:34 FiO2 30 03/08/20 12:34 Sodium 140 mmol/L (137-145) 04/25/20 06:34 Potassium 4.2 mmol/L (3.6-5.0) 04/25/20 06:34 Chloride 98.6 mmol/L (98-107) 04/25/20 06:34 Carbon Dioxide 39 mmol/L (22-30) H 04/25/20 06:34 Anion Gap 7 mmol/L 04/25/20 06:34 BUN 18 mg/dL (9-20) 04/25/20 06:34 Creatinine < 0.2 mg/dL (0.8-1.3) L 04/25/20 06:34 Estimated GFR > 60 ml/min 04/25/20 06:34 BUN/Creatinine Ratio 90 % 04/25/20 06:34 Glucose 103 mg/dL (75-100) H 04/25/20 06:34 POC Glucose 112 mg/dL (70-105) H 04/25/20 11:28 Lactic Acid 1.00 mmol/L (0.7-2.0) 02/24/20 12:07 Calcium 9.1 mg/dL (8.4-10.2) 04/25/20 06:34 Phosphorus 3.30 mg/dL (2.5-4.5) 03/29/20 14:35 Magnesium 1.90 mg/dL (1.7-2.3) 04/12/20 09:07 Ferritin 1715.0 ng/mL (30.0-300.0) H 02/24/20 10:01 Total Bilirubin 0.20 mg/dL (0.1-1.2) 04/12/20 09:07 AST 15 units/L (5-40) 04/12/20 09:07 ALT 15 units/L (7-56) 04/12/20 09:07 Alkaline Phosphatase 62 units/L (35-129) 04/12/20 09:07 Lactate Dehydrogenase 303 units/L (91-180) H 02/24/20 09:19 Total Creatine Kinase 47 units/L (55-170) L 03/28/20 17:17 CK-MB (CK-2) 2.2 ng/mL (0.0-4.0) 03/28/20 17:17 CK-MB (CK-2) Rel Index 4.6 (0-4) H 03/28/20 17:17 Troponin T 0.181 ng/mL (0.00-0.029) H* 04/24/20 05:28 C-Reactive Protein 4.70 mg/dL (0.00-1.30) H 02/28/20 11:05 NT-Pro-B Natriuret Pep 48.30 pg/mL (0-900) 02/24/20 09:19 Total Protein 6.7 g/dL (6.3-8.2) 04/12/20 09:07 Albumin 2.7 g/dL (3.9-5) L 04/12/20 09:07 Albumin/Globulin Ratio 0.7 % 04/12/20 09:07 Prealbumin 0.090 g/L (0.200-0.400) L 02/28/20 12:54 Triglycerides 62 mg/dL (2-149) 04/23/20 04:28 Cholesterol 104 mg/dL (50-199) 04/23/20 04:28 LDL Cholesterol Direct 66 mg/dL (50-130) 04/23/20 04:28 HDL Cholesterol 29 mg/dL (40-59) L 04/23/20 04:28 Cholesterol/HDL Ratio 3.58 % 04/23/20 04:28 Procalcitonin < 0.05 ng/mL (<0.15) 03/28/20 17:12 Arterial Blood Glucose 176 mg/dL (65-95) H 03/08/20 12:34 Arterial Blood Ionized Calcium 4.5 mg/dL (4.6-5.3) L 03/08/20 12:34 Urine Color Yellow (Yellow) 03/28/20 11:36 Urine Turbidity Hazy (Clear) 03/28/20 11:36 Urine pH 5.0 (5.0-7.0) 03/28/20 11:36 Ur Specific Jordan 1.026 (1.003-1.030) 03/28/20 11:36 Urine Protein 100 mg/dl mg/dL (Negative) 03/28/20 11:36 Urine Glucose (UA) Neg mg/dL (Negative) 03/28/20 11:36 Urine Ketones Neg mg/dL (Negative) 03/28/20 11:36 Urine Blood Neg (Negative) 03/28/20 11:36 Urine Nitrite Neg (Negative) 03/28/20 11:36 Urine Bilirubin Neg (Negative) 03/28/20 11:36 Urine Urobilinogen 4.0 mg/dL (<2.0) 03/28/20 11:36 Ur Leukocyte Esterase Mod (Negative) 03/28/20 11:36 Urine WBC (Auto) 39.0 /HPF (0.0-6.0) H 03/28/20 11:36 Urine RBC (Auto) 16.0 /HPF (0.0-6.0) 03/28/20 11:36 U Epithel Cells (Auto) < 1.0 /HPF (0-13.0) 03/08/20 08:57 Urine Bacteria (Auto) 2+ /HPF (Negative) 03/28/20 11:36 Urine Mucus 3+ /HPF 03/28/20 11:36 Urine Yeast (Budding) 2+ /HPF 03/28/20 11:36 Vancomycin Trough 8.0 ug/mL (5.0-20.0) 03/04/20 08:59 Coronavirus (PCR) Negative (Negative) 02/25/20 09:03 - Diagnostic Impressions Diagnostic Impressions: Echocardiogram 02/26/20 10:41 Transthoracic Echocardiogram Indication: Elevated Trop BP: 116/75 HR: 85 Conclusions *Global left ventricular wall motion and contractility are within normal limits. *The estimated ejection fraction is 50-55%. *Abnormal left ventricular diastolic filling is observed, consistent with impaired relaxation. *There is no pericardial effusion. Findings Left Ventricle: The left ventricular chamber size is normal. Global left ventricular wall motion and contractility are within normal limits. Global left ventricular systolic function is normal. The estimated ejection fraction is 50-55%. Abnormal left ventricular diastolic filling is observed, consistent with impaired relaxation. Left Atrium: The left atrial chamber size is normal. Right Ventricle: The right ventricular cavity size is normal. Right Atrium: The right atrial cavity size is normal. Aortic Valve: Mild aortic leaflet calcification is visualized. There is no evidence of aortic regurgitation. Mitral Valve: The mitral valve leaflets are mildly thickened. There is no evidence of mitral regurgitation. Tricuspid Valve: The tricuspid valve leaflets are normal. There is trace tricuspid regurgitation. The right ventricular systolic pressure is calculated at 29 mmHg. Pulmonic Valve: The pulmonic valve is not well visualized. Pericardium: There is no pericardial effusion. Aorta: The aorta appears normal. Venous: The inferior vena cava is dilated. There is less than 50% respiratory change in the inferior vena cava dimension. Measurements Chambers 2D Name Value Normal Range IVSd (2D) 0.97 cm (0.6 - 1.1) LVPWd (2D) 0.93 cm (0.6 - 1.1) LVIDd (2D) 4 cm (3.7 - 5.6) LVIDs (2D) 2.73 cm (2 - 3.8) LV FS (2D) 31.67 % - EF Teichholz (2D) 60.23 % - Ao root diameter (2D) 3.51 cm (2 - 3.7) Volumes/Mass Name Value Normal Range LA ESV SP 4CH (A/L) 8.43 ml - LA ESV SP 2CH (A/L) 18.89 ml - LA ESV BP (A/L) 13.02 ml - LA ESV BP (A/L) index 8.8 ml/m2 - LA ESV SP 4CH (MOD) 7.22 ml - LA ESV SP 2CH (MOD) 18.15 ml - LA ESV BP (MOD) 11.47 ml - LA ESV BP (MOD) index 7.75 ml/m2 - Diastolic/Systolic Function Name Value Normal Range MV E-wave Vmax 0.51 m/sec - MV deceleration time 180.22 msec - MV A-wave Vmax 0.62 m/sec - MV E:A ratio 0.82 ratio - Aortic Valve Name Value Normal Range AV Vmax 1.17 m/sec - AV VTI 19.71 cm - AV peak gradient 5.44 mmHg - AV mean gradient 3.38 mmHg - LVOT diameter 2.26 cm - LVOT Vmax 0.89 m/sec - LVOT VTI 13.72 cm - LVOT peak gradient 3.17 mmHg - LVOT mean gradient 1.67 mmHg - SV LVOT 55.03 ml - SHARAD (continuity Vmax) 3.06 cm2 - SHARAD (continuity VTI) 2.79 cm2 - Tricuspid Valve Name Value Normal Range TR Vmax 2.3 m/sec - TR peak gradient 21 mmHg - RAP 8 mmHg - RVSP 29 mmHg - IVC diameter 2.59 cm (1.2 - 2.3) Pulmonic Valve/Qp:Qs Name Value Normal Range PV acceleration time 68.51 msec - Drake/IV: Voiding Method Indwelling Catheter IV Catheter Type [Right Wrist] INT / Saline Lock IV Catheter Type [Left Hand] Peripheral IV IV Catheter Type [Right Hand] Peripheral IV IV Catheter Type [Left Wrist] Peripheral IV IV Catheter Type [Right Peripheral IV Forearm] IV Catheter Type [Right Triple Lumen Cath Internal Jugular] IV Catheter Type [Left Forearm INT / Saline Lock ] IV Catheter Type [Right Triple Lumen Cath Femoral] IV Catheter Type [Right INT / Saline Lock Antecubital] Active Medications - Current Medications Current Medications: Generic Name Dose Route Start Last Admin Trade Name Freq PRN Reason Stop Dose Admin Acetaminophen 650 mg 02/24/20 15:13 04/21/20 21:32 Acetaminophen 325 Mg Tab PO 650 mg Q4H PRN Administration Pain, Mild (1-3) Albuterol 2.5 mg 02/24/20 15:13 Albuterol 2.5 Mg/3 Ml Nebu IH Q4HRT PRN Shortness Of Breath Alprazolam 0.5 mg 03/30/20 14:19 04/25/20 04:31 Xanax PO 0.5 mg Q8H PRN Administration Anxiety Lipase/Protease/Amylase 1 each 02/26/20 11:16 Lipase 10,500/Protease 25,000/Amylase 43,750 (Units) Dr Larry FEEDTUBE PRN PRN For Clogged Feeding Tube Baclofen 10 mg 04/03/20 12:00 04/25/20 09:15 Lioresal PO 10 mg BID ALISA Administration Bisacodyl 10 mg 03/12/20 18:00 04/12/20 09:26 Bisacodyl 10 Mg Rect Supp AK 10 mg QDAY PRN Administration Bowel Movement Docusate Sodium 100 mg 04/03/20 12:00 04/25/20 09:15 Colace FEEDTUBE 100 mg BID ALISA Administration Enoxaparin Sodium 40 mg 03/20/20 22:00 04/24/20 22:10 Enoxaparin 40 Mg/0.4 Ml Inj SUB-Q 40 mg QDAY@2200 ALISA Administration Protocol Glycopyrrolate 2 mg 04/16/20 20:00 04/25/20 07:27 Glycopyrrolate 1 Mg Tab PO 2 mg TID ALISA Administration Lansoprazole 30 mg 02/28/20 10:00 04/25/20 09:15 Prevacid Solutab FEEDTUBE 30 mg QDAY ALISA Administration Lidocaine 1 each 03/31/20 10:00 04/25/20 09:15 Lidoderm 5% TD 1 each QDAY ALISA Administration Lidocaine HCl 15 ml 04/15/20 14:00 04/25/20 07:40 Magic Mouthwash 30ml PO 15 ml TID ALISA Administration Magnesium Hydroxide 30 ml 04/12/20 19:20 04/21/20 08:52 Magnesium Hydroxide (Mom) Oral Liqd Udc PO 30 ml Q4H PRN Administration Constipation Metoprolol Tartrate 12.5 mg 02/24/20 22:00 04/25/20 09:15 Metoprolol Tartrate 25 Mg Tab PO Not Given BID ALISA Morphine Sulfate 2 mg 02/29/20 16:42 04/25/20 04:31 Morphine IV 2 mg Q4H PRN Administration Pain, Moderate (4-6) Nitroglycerin 0.4 mg 04/24/20 02:03 Nitroglycerin 0.4 Mg Tab Subl SL .Q5MIN PRN Chest Pain Pregabalin 150 mg 04/03/20 12:00 04/25/20 09:15 Pregabalin PO 150 mg BID ALISA Administration Scopolamine 1 each 03/03/20 14:00 04/23/20 10:13 Transderm-Scop TD 1 each Q3D ALISA Administration Senna 17.2 mg 04/03/20 22:00 04/24/20 22:10 Senokot PO 17.2 mg QHS ALISA Administration Simple Syrup 15 ml 02/26/20 11:16 Simple Syrup 15 Ml FEEDTUBE PRN PRN Hypoglycemia Simple Syrup 30 ml 02/26/20 11:16 Simple Syrup 15 Ml FEEDTUBE PRN PRN Hypoglycemia Sodium Bicarbonate 325 mg 02/26/20 11:16 Sodium Bicarbonate 325 Mg Tab FEEDTUBE PRN PRN For Clogged Feeding Tube Sodium Hypochlorite 1 applic 03/31/20 13:00 04/25/20 09:16 Dakin's Half Strength TP 1 applicatio BID ALISA Administration Tamsulosin HCl 0.4 mg 03/09/20 18:00 04/25/20 09:15 Tamsulosin 0.4 Mg Cap PO 0.4 mg QDAY ALISA Administration Tramadol HCl 50 mg 04/22/20 11:35 04/24/20 19:45 Tramadol 50 Mg Tab PO 50 mg Q6H PRN Administration Pain, Moderate (4-6) Zolpidem Tartrate 10 mg 03/31/20 20:15 04/24/20 22:10 Ambien PO 10 mg QHS PRN Administration Sleep Nutrition/Malnutrition Assess - Dietary Evaluation Nutrition/Malnutrition Findings: Nutrition Notes Start: 02/26/20 10:40 Freq: Status: Active Protocol: Document 04/25/20 11:14 LM (Rec: 04/25/20 11:20 LM [id number]) Nutrition Notes Initial or Follow up Reassessment Current Diagnosis Decubitus(Pressure Ulcer), Sepsis,Respiratory Failure Other Pertinent Diagnosis COVID-19 (-), ALS, pneumonia, Hip/buttock PU Current Diet Vital AF 1.2 at 75ml/hr (goal rate) Labs/Tests Reviewed Pertinent Medications Reviewed Height 6 ft Weight 67 kg [place] Body Weight (kg) 80.90 BMI 20.0 Weight change and time frame Wt change noted Weight Status Appropriate Subjective/Other Information Observed TF running at goal rate. Percent of energy/protein needs met: 87%/100% Burn Absent Trauma Absent GI Symptoms None Skin Integrity/Comment Pressure Ulcer Stage 2 Current % PO Negligible Minimum of two criteria Yes Body Fat Depletion Mild depletion (non-severe) Muscle Mass Mild Depletion (non-severe) Reduced Manager Imaging Strength Measurably Reduced (severe) #3 Nutrition Diagnosis Malnutrition Diagnosis Progress(for reassessment Continues documentation) #2 Nutrition Diagnosis Inadequate oral intake Diagnosis Progress(for reassessment Continues documentation) #1 Nutrition Diagnosis Increased nutrient needs ( specify in comment below) Diagnosis Progress(for reassessment Continues documentation) Is patient on ventilator? Yes Is Patient Ambulatory and/or Out of Bed No REE-([place]-St. Jeor-confined to bed) 1832.460 Kcal/Kg value to use for calculation 37 Approximate Energy Requirements Using 2479 kcal/Kg Calculation Used for Recommendations Kcal/kg Additional Notes Protein needs: 88-147 g (1.2-2 g/ kg ABW) Fluid: 1ml/kcal Nutrition Intervention Change Diet Order: Continue TF Nutrition Support: Vital AF 1.2 at 75ml/hr. Flush 150ml q4h Kcal 2,160 Protein (gm) 135 Fluid (mL) 1,460 Add Supplement/Snack (indicate name/kcal Will BID /protein ) Provides kCal: 190 Provides Protein (gm) 5 Goal #1 Meet at least 80% of energy and protein needs via TF Goal #2 Wound healing Anticipated Discharge Needs: Unable to determine at this time Follow-Up By: 05/02/20 Additional Comments F/U for TF tolerance
--- NOTE | 2020-04-25 15:19 | Progress Note ---
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 Respiratory Failure Severe Sepsis with Shock Bilateral Pneumonia (Possible aspiration) History of ALS on Trilogy Oropharyngeal Dysphagia PUI-COVID Acute toxic metabolic encephalopathy Elevated D-dimer Elevated troponin possibly type 2 ischemia - discharge planning still ongoing for home ventilator - remains ventilator dependent' continue care as below: - continue home meds re: chronic pain (Baclofen, Lyrica) - continue daily SBT's as tolerated; t-piece trial attempts as tolerated (PSV if fails) - repeat CXR prn +/- bronchoscopy for mucus plugging / large volume atelectasis - continue psychoactive meds for anxiolysis - continue Robinul & scopolamine for secretion control - prn electrolytes and optimize K+ & Mg 2+ for best respiratory muscle function - wound care per RN/WCN - wean supplemental oxygen for target O2 sat's > 90% acutely - bronchodilators with pulmonary hygiene per RT - VAP bundle addressed - continue lung protective strategies - continue bronchodilators with pulmonary hygiene per RT - wean per pulmonary driven protocols otherwise - sedation prn for target RASS 0 to -1 - s/p empiric antiinfectives per ID rec's (Rocephin and Zithromax) - s/p COVID-19 isolation (Airborne & Contact) - s/p Dexamethasone - enteral nutrition at goal rate as tolerated - accuchecks with glycemic control per SSI (While critically ill target blood glucose of 140-180 mg/dL; avoid hypoglycemia) - avoid nephrotoxins, renally dose all medications - avoid benzodiazepine's, reduce the possibility of delirium - prn analgesia per CPOT score - Maintenance of sleep-wake cycle, avoid delirium - aspiration precautions - G.I. & VTE prophylaxis - PT/OT/ROM exercises - mobility protocols for pressure ulcer prophylaxis - Monitor hemodynamics closely - continue other care per attending / other consultants - discharge planning ongoing concurrently .... Re-evaluate in am & prn CONDITION: CRITICAL PROGNOSIS: GUARDED CODE STATUS: FULL CODE The high probability of a clinically significant, sudden or life-threatening deterioration of the [respiratory, cardiovascular & neurologic] system(s) required my full and direct attention, intervention and personal management. The aggregate critical care time was [32] minutes without overlap. Time includes spent on; [x] Data Review and interpretation [x] Patient assessment and monitoring of vital signs [x] Documentation [x] Medication orders and management Subjective Date of service: 04/25/20 Principal diagnosis: Ac on Ch Hypercapnic & hypoxemic Resp Failure; Severe Sepsis; Jamar PNA; ALS Interval history: Patient is seen today for: Acute on Chronic Hypercapnic & hypoxemic Respiratory Failure; Severe Sepsis with Shock; Bilateral Pneumonia (Possible aspiration); History of ALS on Trilogy; PUI-COVID; Acute toxic metabolic encephalopathy Seen and examined at bedside; 24hour events reviewed; nursing and respiratory care staff consulted; no adverse overnight events reported to me; resting in bed; remains on MVS; failed weaning attempt today; No N/V/F/C Objective Vital Signs - 12hr 04/25/20 04/25/20 04/25/20 03:51 04:00 04:13 Temperature 97.8 F Pulse Rate 107 H 110 H Pulse Rate [ From Monitor] Respiratory 14 Rate Respiratory Rate [Throat] Blood Pressure 111/76 111/76 O2 Sat by Pulse 99 99 Oximetry O2 Sat by Pulse Oximetry [ Assessment] 04/25/20 04/25/20 04/25/20 04:31 05:00 05:01 Temperature Pulse Rate 110 H Pulse Rate [ From Monitor] Respiratory 20 16 16 Rate Respiratory Rate [Throat] Blood Pressure 97/66 O2 Sat by Pulse 100 Oximetry O2 Sat by Pulse Oximetry [ Assessment] 04/25/20 04/25/20 04/25/20 06:00 07:00 08:00 Temperature 98 F Pulse Rate 96 H 101 H 113 H Pulse Rate [ 100 H From Monitor] Respiratory 18 13 20 Rate Respiratory Rate [Throat] Blood Pressure 111/79 109/74 113/78 O2 Sat by Pulse 99 98 98 Oximetry O2 Sat by Pulse Oximetry [ Assessment] 04/25/20 04/25/20 04/25/20 08:07 08:12 09:00 Temperature Pulse Rate 112 H 112 H Pulse Rate [ From Monitor] Respiratory 12 25 H Rate Respiratory Rate [Throat] Blood Pressure 109/74 107/71 O2 Sat by Pulse 100 100 Oximetry O2 Sat by Pulse 100 Oximetry [ Assessment] 04/25/20 04/25/20 04/25/20 09:15 10:00 11:00 Temperature Pulse Rate 107 H 103 H 108 H Pulse Rate [ From Monitor] Respiratory 21 20 Rate Respiratory 18 Rate [Throat] Blood Pressure 107/71 112/72 115/75 O2 Sat by Pulse 99 98 Oximetry O2 Sat by Pulse Oximetry [ Assessment] 04/25/20 04/25/20 04/25/20 11:52 12:00 13:00 Temperature 98.2 F Pulse Rate 112 H 111 H 104 H Pulse Rate [ 100 H From Monitor] Respiratory 22 19 21 Rate Respiratory Rate [Throat] Blood Pressure 115/75 100/72 110/73 O2 Sat by Pulse 99 98 100 Oximetry O2 Sat by Pulse Oximetry [ Assessment] 04/25/20 04/25/20 14:00 15:00 Temperature Pulse Rate 106 H 98 H Pulse Rate [ From Monitor] Respiratory 19 12 Rate Respiratory Rate [Throat] Blood Pressure 112/74 111/79 O2 Sat by Pulse 99 98 Oximetry O2 Sat by Pulse Oximetry [ Assessment] Constitutional: no acute distress, other (thin middle aged male with normal respiratory effort at rest on MVS) Eyes: non-icteric ENT: oropharynx moist, other (S/P Tracheostomy) Neck: supple, no lymphadenopathy, no JVD Effort: mildly labored Ascultation: Bilateral: diminished breath sounds, rhonchi Percussion: Bilateral: not dull Cardiovascular: regular rate and rhythm, other (S1,S2, no murmurs) Gastrointestinal: normoactive bowel sounds, soft, non-tender, non-distended, other (+ distended but non tender suprapubis) Integumentary: normal, decubitus ulcer (sacral / gluteal) Extremities: no cyanosis, no edema, pulses normal, other (atrophic looking limbs) Neurologic: pupils equal and round, other (motor strength in extremities 1-2/5, awake, alert, mouths words to make needs known) Psychiatric: mood appropriate, affect normal CBC and BMP: 04/25/20 06:34 04/25/20 06:34 ABG, PT/INR, D-dimer: ABG ABG pH 7.371 (7.320-7.450) 03/08/20 12:34 POC ABG pCO2 63.1 mmHg (32.0-48.0) H 03/08/20 12:34 ABG pCO2 60.1 mm Hg 03/06/20 04:34 POC ABG pO2 90.5 mmHg (83-108) 03/08/20 12:34 ABG pO2 88.6 mm Hg (80.0-90.0) 03/06/20 04:34 POC ABG HCO3 35.7 03/08/20 12:34 ABG O2 Saturation 97.0 % (95.0-99.0) 03/06/20 04:34 PT/INR, D-dimer PT 15.6 Sec. (12.2-14.9) H 02/24/20 09:19 INR 1.21 (0.87-1.13) H 02/24/20 09:19 D-Dimer 1311.96 ng/mlDDU (0-234) H 02/24/20 09:19 Abnormal lab findings: Abnormal Labs 02/24/20 02/24/20 02/24/20 09:19 09:19 09:19 WBC 20.2 H RBC 5.05 H Hgb Hct MCV MCH RDW 15.3 H Plt Count Lymph % (Auto) [place] % (Auto) Lymph # (Auto) [place] # (Auto) Seg Neutrophils % Seg Neuts % (Manual) 86.0 H Lymphocytes % (Manual) 1.0 L Monocytes % (Manual) Basophils % (Manual) Seg Neutrophils # Seg Neutrophils # Man 17.4 H Lymphocytes # (Manual) 0.2 L Monocytes # (Manual) Eosinophils # (Manual) Basophils # (Manual) PT 15.6 H INR 1.21 H D-Dimer 1311.96 H ABG pH POC ABG pCO2 POC ABG pO2 ABG pO2 ABG HCO3 ABG O2 Saturation ABG Base Excess ABG Hemoglobin ABG Oxyhemoglobin ABG Potassium ABG Glucose Oxyhemoglobin Carboxyhemoglobin Sodium 135 L Potassium 3.2 L Chloride 92.2 L Carbon Dioxide BUN 6 L Creatinine < 0.2 L Glucose 124 H POC Glucose Calcium Ferritin Total Bilirubin 2.30 H Alkaline Phosphatase 132 H Lactate Dehydrogenase Total Creatine Kinase CK-MB (CK-2) Rel Index Troponin T 0.080 H C-Reactive Protein Total Protein Albumin 3.6 L Prealbumin LDL Cholesterol Direct 41 L HDL Cholesterol Arterial Blood Glucose Arterial Blood Ionized Calcium Urine WBC (Auto) 02/24/20 02/24/20 02/24/20 09:19 09:58 10:01 WBC RBC Hgb Hct MCV MCH RDW Plt Count Lymph % (Auto) [place] % (Auto) Lymph # (Auto) [place] # (Auto) Seg Neutrophils % Seg Neuts % (Manual) Lymphocytes % (Manual) Monocytes % (Manual) Basophils % (Manual) Seg Neutrophils # Seg Neutrophils # Man Lymphocytes # (Manual) Monocytes # (Manual) Eosinophils # (Manual) Basophils # (Manual) PT INR D-Dimer ABG pH 7.176 L* POC ABG pCO2 POC ABG pO2 ABG pO2 91.2 H ABG HCO3 ABG O2 Saturation ABG Base Excess -4.6 L ABG Hemoglobin ABG Oxyhemoglobin ABG Potassium ABG Glucose Oxyhemoglobin 92.6 L Carboxyhemoglobin Sodium Potassium Chloride Carbon Dioxide BUN Creatinine Glucose POC Glucose Calcium Ferritin 1715.0 H Total Bilirubin Alkaline Phosphatase Lactate Dehydrogenase 303 H Total Creatine Kinase CK-MB (CK-2) Rel Index Troponin T C-Reactive Protein 26.10 H Total Protein Albumin Prealbumin LDL Cholesterol Direct HDL Cholesterol Arterial Blood Glucose Arterial Blood Ionized Calcium Urine WBC (Auto) 02/24/20 02/24/20 02/24/20 11:52 13:45 19:35 WBC RBC Hgb Hct MCV MCH RDW Plt Count Lymph % (Auto) [place] % (Auto) Lymph # (Auto) [place] # (Auto) Seg Neutrophils % Seg Neuts % (Manual) Lymphocytes % (Manual) Monocytes % (Manual) Basophils % (Manual) Seg Neutrophils # Seg Neutrophils # Man Lymphocytes # (Manual) Monocytes # (Manual) Eosinophils # (Manual) Basophils # (Manual) PT INR D-Dimer ABG pH 7.051 L* 7.300 L POC ABG pCO2 POC ABG pO2 ABG pO2 94.7 H 75.1 L ABG HCO3 18.0 L ABG O2 Saturation 93.5 L ABG Base Excess -6.8 L -7.8 L ABG Hemoglobin 13.2 L 11.9 L ABG Oxyhemoglobin ABG Potassium ABG Glucose Oxyhemoglobin 91.0 L 92.7 L Carboxyhemoglobin Sodium Potassium Chloride Carbon Dioxide BUN Creatinine Glucose POC Glucose Calcium Ferritin Total Bilirubin Alkaline Phosphatase Lactate Dehydrogenase Total Creatine Kinase CK-MB (CK-2) Rel Index Troponin T 0.034 H D C-Reactive Protein Total Protein Albumin Prealbumin LDL Cholesterol Direct HDL Cholesterol Arterial Blood Glucose Arterial Blood Ionized Calcium Urine WBC (Auto) 02/25/20 02/25/20 02/25/20 04:00 04:00 12:26 WBC 22.9 H RBC Hgb Hct MCV 83 L MCH 27 L RDW Plt Count 468 H Lymph % (Auto) [place] % (Auto) Lymph # (Auto) [place] # (Auto) Seg Neutrophils % Seg Neuts % (Manual) 89.0 H Lymphocytes % (Manual) 7.0 L Monocytes % (Manual) Basophils % (Manual) Seg Neutrophils # Seg Neutrophils # Man 20.4 H Lymphocytes # (Manual) Monocytes # (Manual) Eosinophils # (Manual) Basophils # (Manual) PT INR D-Dimer ABG pH POC ABG pCO2 POC ABG pO2 ABG pO2 ABG HCO3 ABG O2 Saturation ABG Base Excess ABG Hemoglobin ABG Oxyhemoglobin ABG Potassium 2.6 L ABG Glucose 142 H Oxyhemoglobin Carboxyhemoglobin Sodium Potassium 3.2 L Chloride Carbon Dioxide 18 L BUN Creatinine 0.2 L Glucose 114 H POC Glucose Calcium Ferritin Total Bilirubin Alkaline Phosphatase Lactate Dehydrogenase Total Creatine Kinase CK-MB (CK-2) Rel Index Troponin T C-Reactive Protein Total Protein Albumin 3.5 L Prealbumin LDL Cholesterol Direct HDL Cholesterol Arterial Blood Glucose 142 H Arterial Blood Ionized Calcium Urine WBC (Auto) 02/26/20 02/26/20 02/26/20 15:58 17:00 23:43 WBC RBC Hgb Hct MCV MCH RDW Plt Count Lymph % (Auto) [place] % (Auto) Lymph # (Auto) [place] # (Auto) Seg Neutrophils % Seg Neuts % (Manual) Lymphocytes % (Manual) Monocytes % (Manual) Basophils % (Manual) Seg Neutrophils # Seg Neutrophils # Man Lymphocytes # (Manual) Monocytes # (Manual) Eosinophils # (Manual) Basophils # (Manual) PT INR D-Dimer ABG pH 7.502 H POC ABG pCO2 POC ABG pO2 213.6 H ABG pO2 ABG HCO3 ABG O2 Saturation ABG Base Excess ABG Hemoglobin ABG Oxyhemoglobin 99.2 H ABG Potassium 2.9 L ABG Glucose 160 H Oxyhemoglobin Carboxyhemoglobin 0.4 L Sodium Potassium Chloride Carbon Dioxide BUN Creatinine Glucose POC Glucose 189 H 120 H Calcium Ferritin Total Bilirubin Alkaline Phosphatase Lactate Dehydrogenase Total Creatine Kinase CK-MB (CK-2) Rel Index Troponin T C-Reactive Protein Total Protein Albumin Prealbumin LDL Cholesterol Direct HDL Cholesterol Arterial Blood Glucose 160 H Arterial Blood Ionized Calcium 4.5 L Urine WBC (Auto) 02/27/20 02/27/20 02/27/20 05:00 07:04 17:45 WBC RBC Hgb Hct MCV MCH RDW Plt Count Lymph % (Auto) [place] % (Auto) Lymph # (Auto) [place] # (Auto) Seg Neutrophils % Seg Neuts % (Manual) Lymphocytes % (Manual) Monocytes % (Manual) Basophils % (Manual) Seg Neutrophils # Seg Neutrophils # Man Lymphocytes # (Manual) Monocytes # (Manual) Eosinophils # (Manual) Basophils # (Manual) PT INR D-Dimer ABG pH 7.524 H POC ABG pCO2 POC ABG pO2 ABG pO2 ABG HCO3 ABG O2 Saturation ABG Base Excess ABG Hemoglobin ABG Oxyhemoglobin ABG Potassium 3.0 L ABG Glucose 143 H Oxyhemoglobin Carboxyhemoglobin Sodium Potassium Chloride Carbon Dioxide BUN Creatinine Glucose POC Glucose 154 H 175 H Calcium Ferritin Total Bilirubin Alkaline Phosphatase Lactate Dehydrogenase Total Creatine Kinase CK-MB (CK-2) Rel Index Troponin T C-Reactive Protein Total Protein Albumin Prealbumin LDL Cholesterol Direct HDL Cholesterol Arterial Blood Glucose 143 H Arterial Blood Ionized Calcium Urine WBC (Auto) 02/27/20 02/28/20 02/28/20 Unknown 00:21 04:15 WBC 18.7 H RBC Hgb Hct MCV MCH RDW Plt Count Lymph % (Auto) 8.7 L [place] % (Auto) Lymph # (Auto) [place] # (Auto) 1.2 H Seg Neutrophils % 84.6 H Seg Neuts % (Manual) Lymphocytes % (Manual) Monocytes % (Manual) Basophils % (Manual) Seg Neutrophils # 15.9 H Seg Neutrophils # Man Lymphocytes # (Manual) Monocytes # (Manual) Eosinophils # (Manual) Basophils # (Manual) PT INR D-Dimer ABG pH POC ABG pCO2 POC ABG pO2 ABG pO2 ABG HCO3 ABG O2 Saturation ABG Base Excess ABG Hemoglobin ABG Oxyhemoglobin ABG Potassium ABG Glucose Oxyhemoglobin Carboxyhemoglobin Sodium Potassium 2.9 L* Chloride Carbon Dioxide 33 H D BUN Creatinine < 0.2 L Glucose 157 H POC Glucose 134 H Calcium Ferritin Total Bilirubin Alkaline Phosphatase Lactate Dehydrogenase Total Creatine Kinase CK-MB (CK-2) Rel Index Troponin T C-Reactive Protein Total Protein Albumin Prealbumin LDL Cholesterol Direct HDL Cholesterol Arterial Blood Glucose Arterial Blood Ionized Calcium Urine WBC (Auto) 02/28/20 02/28/20 02/28/20 04:15 05:16 05:39 WBC RBC Hgb Hct MCV MCH RDW Plt Count Lymph % (Auto) [place] % (Auto) Lymph # (Auto) [place] # (Auto) Seg Neutrophils % Seg Neuts % (Manual) Lymphocytes % (Manual) Monocytes % (Manual) Basophils % (Manual) Seg Neutrophils # Seg Neutrophils # Man Lymphocytes # (Manual) Monocytes # (Manual) Eosinophils # (Manual) Basophils # (Manual) PT INR D-Dimer ABG pH POC ABG pCO2 POC ABG pO2 ABG pO2 142.9 H ABG HCO3 34.1 H ABG O2 Saturation ABG Base Excess 8.3 H ABG Hemoglobin ABG Oxyhemoglobin ABG Potassium ABG Glucose Oxyhemoglobin Carboxyhemoglobin Sodium 151 H Potassium Chloride Carbon Dioxide 32 H BUN Creatinine 0.2 L Glucose 167 H POC Glucose 138 H Calcium Ferritin Total Bilirubin Alkaline Phosphatase Lactate Dehydrogenase Total Creatine Kinase CK-MB (CK-2) Rel Index Troponin T C-Reactive Protein Total Protein Albumin Prealbumin LDL Cholesterol Direct HDL Cholesterol Arterial Blood Glucose Arterial Blood Ionized Calcium Urine WBC (Auto) 02/28/20 02/28/20 02/28/20 11:05 11:33 12:54 WBC RBC Hgb Hct MCV MCH RDW Plt Count Lymph % (Auto) [place] % (Auto) Lymph # (Auto) [place] # (Auto) Seg Neutrophils % Seg Neuts % (Manual) Lymphocytes % (Manual) Monocytes % (Manual) Basophils % (Manual) Seg Neutrophils # Seg Neutrophils # Man Lymphocytes # (Manual) Monocytes # (Manual) Eosinophils # (Manual) Basophils # (Manual) PT INR D-Dimer ABG pH POC ABG pCO2 POC ABG pO2 ABG pO2 ABG HCO3 ABG O2 Saturation ABG Base Excess ABG Hemoglobin ABG Oxyhemoglobin ABG Potassium ABG Glucose Oxyhemoglobin Carboxyhemoglobin Sodium Potassium Chloride Carbon Dioxide BUN Creatinine Glucose POC Glucose 160 H Calcium Ferritin Total Bilirubin Alkaline Phosphatase Lactate Dehydrogenase Total Creatine Kinase CK-MB (CK-2) Rel Index Troponin T C-Reactive Protein 4.70 H Total Protein Albumin Prealbumin 0.090 L LDL Cholesterol Direct HDL Cholesterol Arterial Blood Glucose Arterial Blood Ionized Calcium Urine WBC (Auto) 02/28/20 02/29/20 02/29/20 17:34 00:44 04:05 WBC 19.6 H RBC Hgb Hct MCV MCH 27 L RDW 15.4 H Plt Count Lymph % (Auto) [place] % (Auto) Lymph # (Auto) [place] # (Auto) Seg Neutrophils % Seg Neuts % (Manual) 86.0 H Lymphocytes % (Manual) 7.0 L Monocytes % (Manual) Basophils % (Manual) Seg Neutrophils # Seg Neutrophils # Man 16.9 H Lymphocytes # (Manual) Monocytes # (Manual) 1.2 H Eosinophils # (Manual) Basophils # (Manual) PT INR D-Dimer ABG pH POC ABG pCO2 POC ABG pO2 ABG pO2 ABG HCO3 ABG O2 Saturation ABG Base Excess ABG Hemoglobin ABG Oxyhemoglobin ABG Potassium ABG Glucose Oxyhemoglobin Carboxyhemoglobin Sodium Potassium Chloride Carbon Dioxide BUN Creatinine Glucose POC Glucose 136 H 156 H Calcium Ferritin Total Bilirubin Alkaline Phosphatase Lactate Dehydrogenase Total Creatine Kinase CK-MB (CK-2) Rel Index Troponin T C-Reactive Protein Total Protein Albumin Prealbumin LDL Cholesterol Direct HDL Cholesterol Arterial Blood Glucose Arterial Blood Ionized Calcium Urine WBC (Auto) 02/29/20 02/29/20 02/29/20 04:05 05:14 05:33 WBC RBC Hgb Hct MCV MCH RDW Plt Count Lymph % (Auto) [place] % (Auto) Lymph # (Auto) [place] # (Auto) Seg Neutrophils % Seg Neuts % (Manual) Lymphocytes % (Manual) Monocytes % (Manual) Basophils % (Manual) Seg Neutrophils # Seg Neutrophils # Man Lymphocytes # (Manual) Monocytes # (Manual) Eosinophils # (Manual) Basophils # (Manual) PT INR D-Dimer ABG pH POC ABG pCO2 54.3 H POC ABG pO2 124.8 H ABG pO2 ABG HCO3 ABG O2 Saturation ABG Base Excess ABG Hemoglobin ABG Oxyhemoglobin ABG Potassium ABG Glucose 185 H Oxyhemoglobin Carboxyhemoglobin Sodium 148 H Potassium Chloride Carbon Dioxide 33 H BUN Creatinine < 0.2 L Glucose 173 H POC Glucose 152 H Calcium Ferritin Total Bilirubin Alkaline Phosphatase Lactate Dehydrogenase Total Creatine Kinase CK-MB (CK-2) Rel Index Troponin T C-Reactive Protein Total Protein Albumin Prealbumin LDL Cholesterol Direct HDL Cholesterol Arterial Blood Glucose 185 H Arterial Blood Ionized Calcium Urine WBC (Auto) 03/01/20 03/01/20 03/01/20 00:00 03:45 04:33 WBC 23.1 H RBC Hgb Hct MCV MCH 27 L RDW 15.3 H Plt Count Lymph % (Auto) [place] % (Auto) Lymph # (Auto) [place] # (Auto) Seg Neutrophils % Seg Neuts % (Manual) 92.0 H Lymphocytes % (Manual) 6.0 L Monocytes % (Manual) Basophils % (Manual) Seg Neutrophils # Seg Neutrophils # Man 21.3 H Lymphocytes # (Manual) Monocytes # (Manual) Eosinophils # (Manual) 0.5 H Basophils # (Manual) PT INR D-Dimer ABG pH 7.492 H POC ABG pCO2 POC ABG pO2 ABG pO2 157.1 H ABG HCO3 32.3 H ABG O2 Saturation ABG Base Excess 8.1 H ABG Hemoglobin 13.2 L ABG Oxyhemoglobin ABG Potassium ABG Glucose Oxyhemoglobin Carboxyhemoglobin Sodium Potassium Chloride Carbon Dioxide BUN Creatinine Glucose POC Glucose 109 H Calcium Ferritin Total Bilirubin Alkaline Phosphatase Lactate Dehydrogenase Total Creatine Kinase CK-MB (CK-2) Rel Index Troponin T C-Reactive Protein Total Protein Albumin Prealbumin LDL Cholesterol Direct HDL Cholesterol Arterial Blood Glucose Arterial Blood Ionized Calcium Urine WBC (Auto) 03/01/20 03/01/20 03/01/20 04:33 05:29 12:32 WBC RBC Hgb Hct MCV MCH RDW Plt Count Lymph % (Auto) [place] % (Auto) Lymph # (Auto) [place] # (Auto) Seg Neutrophils % Seg Neuts % (Manual) Lymphocytes % (Manual) Monocytes % (Manual) Basophils % (Manual) Seg Neutrophils # Seg Neutrophils # Man Lymphocytes # (Manual) Monocytes # (Manual) Eosinophils # (Manual) Basophils # (Manual) PT INR D-Dimer ABG pH POC ABG pCO2 POC ABG pO2 ABG pO2 ABG HCO3 ABG O2 Saturation ABG Base Excess ABG Hemoglobin ABG Oxyhemoglobin ABG Potassium ABG Glucose Oxyhemoglobin Carboxyhemoglobin Sodium 146 H Potassium Chloride Carbon Dioxide 32 H BUN Creatinine < 0.2 L Glucose 120 H POC Glucose 120 H 128 H Calcium Ferritin Total Bilirubin Alkaline Phosphatase Lactate Dehydrogenase Total Creatine Kinase CK-MB (CK-2) Rel Index Troponin T C-Reactive Protein Total Protein Albumin Prealbumin LDL Cholesterol Direct HDL Cholesterol Arterial Blood Glucose Arterial Blood Ionized Calcium Urine WBC (Auto) 03/01/20 03/01/20 03/02/20 17:38 23:46 06:13 WBC RBC Hgb Hct MCV MCH RDW Plt Count Lymph % (Auto) [place] % (Auto) Lymph # (Auto) [place] # (Auto) Seg Neutrophils % Seg Neuts % (Manual) Lymphocytes % (Manual) Monocytes % (Manual) Basophils % (Manual) Seg Neutrophils # Seg Neutrophils # Man Lymphocytes # (Manual) Monocytes # (Manual) Eosinophils # (Manual) Basophils # (Manual) PT INR D-Dimer ABG pH POC ABG pCO2 POC ABG pO2 ABG pO2 ABG HCO3 ABG O2 Saturation ABG Base Excess ABG Hemoglobin ABG Oxyhemoglobin ABG Potassium ABG Glucose Oxyhemoglobin Carboxyhemoglobin Sodium Potassium Chloride Carbon Dioxide BUN Creatinine Glucose POC Glucose 114 H 121 H 120 H Calcium Ferritin Total Bilirubin Alkaline Phosphatase Lactate Dehydrogenase Total Creatine Kinase CK-MB (CK-2) Rel Index Troponin T C-Reactive Protein Total Protein Albumin Prealbumin LDL Cholesterol Direct HDL Cholesterol Arterial Blood Glucose Arterial Blood Ionized Calcium Urine WBC (Auto) 03/02/20 03/02/20 03/03/20 09:47 09:47 10:21 WBC 23.6 H RBC Hgb Hct MCV MCH RDW 15.3 H Plt Count 494 H Lymph % (Auto) [place] % (Auto) Lymph # (Auto) [place] # (Auto) Seg Neutrophils % Seg Neuts % (Manual) 85.0 H Lymphocytes % (Manual) 6.0 L Monocytes % (Manual) Basophils % (Manual) Seg Neutrophils # Seg Neutrophils # Man 20.1 H Lymphocytes # (Manual) Monocytes # (Manual) 1.7 H Eosinophils # (Manual) Basophils # (Manual) PT INR D-Dimer ABG pH POC ABG pCO2 POC ABG pO2 ABG pO2 ABG HCO3 ABG O2 Saturation ABG Base Excess ABG Hemoglobin ABG Oxyhemoglobin ABG Potassium 3.3 L ABG Glucose 158 H Oxyhemoglobin Carboxyhemoglobin Sodium Potassium Chloride Carbon Dioxide BUN Creatinine < 0.2 L Glucose 177 H POC Glucose Calcium Ferritin Total Bilirubin Alkaline Phosphatase Lactate Dehydrogenase Total Creatine Kinase CK-MB (CK-2) Rel Index Troponin T C-Reactive Protein Total Protein Albumin Prealbumin LDL Cholesterol Direct HDL Cholesterol Arterial Blood Glucose 158 H Arterial Blood Ionized Calcium Urine WBC (Auto) 03/03/20 03/04/20 03/04/20 21:30 00:00 12:23 WBC RBC Hgb Hct MCV MCH RDW Plt Count Lymph % (Auto) [place] % (Auto) Lymph # (Auto) [place] # (Auto) Seg Neutrophils % Seg Neuts % (Manual) Lymphocytes % (Manual) Monocytes % (Manual) Basophils % (Manual) Seg Neutrophils # Seg Neutrophils # Man Lymphocytes # (Manual) Monocytes # (Manual) Eosinophils # (Manual) Basophils # (Manual) PT INR D-Dimer ABG pH 7.328 L POC ABG pCO2 POC ABG pO2 ABG pO2 68.4 L ABG HCO3 35.0 H ABG O2 Saturation 93.9 L ABG Base Excess 6.8 H ABG Hemoglobin 12.7 L ABG Oxyhemoglobin ABG Potassium ABG Glucose Oxyhemoglobin 91.9 L Carboxyhemoglobin Sodium Potassium Chloride Carbon Dioxide BUN Creatinine Glucose POC Glucose 187 H 163 H Calcium Ferritin Total Bilirubin Alkaline Phosphatase Lactate Dehydrogenase Total Creatine Kinase CK-MB (CK-2) Rel Index Troponin T C-Reactive Protein Total Protein Albumin Prealbumin LDL Cholesterol Direct HDL Cholesterol Arterial Blood Glucose Arterial Blood Ionized Calcium Urine WBC (Auto) 03/04/20 03/04/20 03/05/20 18:15 21:30 06:02 WBC RBC Hgb Hct MCV MCH RDW Plt Count Lymph % (Auto) [place] % (Auto) Lymph # (Auto) [place] # (Auto) Seg Neutrophils % Seg Neuts % (Manual) Lymphocytes % (Manual) Monocytes % (Manual) Basophils % (Manual) Seg Neutrophils # Seg Neutrophils # Man Lymphocytes # (Manual) Monocytes # (Manual) Eosinophils # (Manual) Basophils # (Manual) PT INR D-Dimer ABG pH 7.297 L POC ABG pCO2 POC ABG pO2 ABG pO2 ABG HCO3 41.0 H ABG O2 Saturation ABG Base Excess 11.0 H ABG Hemoglobin 13.1 L ABG Oxyhemoglobin ABG Potassium ABG Glucose Oxyhemoglobin 94.5 L Carboxyhemoglobin Sodium Potassium Chloride Carbon Dioxide BUN Creatinine Glucose POC Glucose 192 H 127 H Calcium Ferritin Total Bilirubin Alkaline Phosphatase Lactate Dehydrogenase Total Creatine Kinase CK-MB (CK-2) Rel Index Troponin T C-Reactive Protein Total Protein Albumin Prealbumin LDL Cholesterol Direct HDL Cholesterol Arterial Blood Glucose Arterial Blood Ionized Calcium Urine WBC (Auto) 03/05/20 03/05/20 03/06/20 12:09 16:42 00:24 WBC RBC Hgb Hct MCV MCH RDW Plt Count Lymph % (Auto) [place] % (Auto) Lymph # (Auto) [place] # (Auto) Seg Neutrophils % Seg Neuts % (Manual) Lymphocytes % (Manual) Monocytes % (Manual) Basophils % (Manual) Seg Neutrophils # Seg Neutrophils # Man Lymphocytes # (Manual) Monocytes # (Manual) Eosinophils # (Manual) Basophils # (Manual) PT INR D-Dimer ABG pH POC ABG pCO2 POC ABG pO2 ABG pO2 ABG HCO3 ABG O2 Saturation ABG Base Excess ABG Hemoglobin ABG Oxyhemoglobin ABG Potassium ABG Glucose Oxyhemoglobin Carboxyhemoglobin Sodium Potassium Chloride Carbon Dioxide BUN Creatinine Glucose POC Glucose 147 H 114 H 134 H Calcium Ferritin Total Bilirubin Alkaline Phosphatase Lactate Dehydrogenase Total Creatine Kinase CK-MB (CK-2) Rel Index Troponin T C-Reactive Protein Total Protein Albumin Prealbumin LDL Cholesterol Direct HDL Cholesterol Arterial Blood Glucose Arterial Blood Ionized Calcium Urine WBC (Auto) 03/06/20 03/06/20 03/06/20 04:34 05:53 06:08 WBC 25.4 H RBC Hgb 10.5 L Hct 32.7 L MCV MCH 27 L RDW 15.3 H Plt Count 634 H Lymph % (Auto) [place] % (Auto) Lymph # (Auto) [place] # (Auto) Seg Neutrophils % Seg Neuts % (Manual) 88.0 H Lymphocytes % (Manual) 2.0 L Monocytes % (Manual) 8.0 H Basophils % (Manual) Seg Neutrophils # Seg Neutrophils # Man 22.4 H Lymphocytes # (Manual) 0.5 L Monocytes # (Manual) 2.0 H Eosinophils # (Manual) Basophils # (Manual) PT INR D-Dimer ABG pH POC ABG pCO2 POC ABG pO2 ABG pO2 ABG HCO3 37.9 H ABG O2 Saturation ABG Base Excess 11.4 H ABG Hemoglobin 10.6 L ABG Oxyhemoglobin ABG Potassium ABG Glucose Oxyhemoglobin 94.7 L Carboxyhemoglobin Sodium Potassium Chloride Carbon Dioxide BUN Creatinine Glucose POC Glucose 135 H Calcium Ferritin Total Bilirubin Alkaline Phosphatase Lactate Dehydrogenase Total Creatine Kinase CK-MB (CK-2) Rel Index Troponin T C-Reactive Protein Total Protein Albumin Prealbumin LDL Cholesterol Direct HDL Cholesterol Arterial Blood Glucose Arterial Blood Ionized Calcium Urine WBC (Auto) 03/06/20 03/06/20 03/06/20 06:08 12:19 19:10 WBC RBC Hgb Hct MCV MCH RDW Plt Count Lymph % (Auto) [place] % (Auto) Lymph # (Auto) [place] # (Auto) Seg Neutrophils % Seg Neuts % (Manual) Lymphocytes % (Manual) Monocytes % (Manual) Basophils % (Manual) Seg Neutrophils # Seg Neutrophils # Man Lymphocytes # (Manual) Monocytes # (Manual) Eosinophils # (Manual) Basophils # (Manual) PT INR D-Dimer ABG pH POC ABG pCO2 POC ABG pO2 ABG pO2 ABG HCO3 ABG O2 Saturation ABG Base Excess ABG Hemoglobin ABG Oxyhemoglobin ABG Potassium ABG Glucose Oxyhemoglobin Carboxyhemoglobin Sodium 150 H D Potassium Chloride Carbon Dioxide 39 H D BUN 23 H Creatinine < 0.2 L Glucose 144 H POC Glucose 169 H 152 H Calcium Ferritin Total Bilirubin Alkaline Phosphatase Lactate Dehydrogenase Total Creatine Kinase CK-MB (CK-2) Rel Index Troponin T C-Reactive Protein Total Protein Albumin 3.3 L Prealbumin LDL Cholesterol Direct HDL Cholesterol Arterial Blood Glucose Arterial Blood Ionized Calcium Urine WBC (Auto) 03/06/20 03/07/20 03/07/20 23:58 04:25 04:25 WBC 22.1 H RBC Hgb 10.9 L Hct 32.9 L MCV MCH RDW 15.5 H Plt Count 739 H Lymph % (Auto) 7.8 L [place] % (Auto) Lymph # (Auto) [place] # (Auto) 1.3 H Seg Neutrophils % 85.5 H Seg Neuts % (Manual) Lymphocytes % (Manual) Monocytes % (Manual) Basophils % (Manual) Seg Neutrophils # 18.9 H Seg Neutrophils # Man Lymphocytes # (Manual) Monocytes # (Manual) Eosinophils # (Manual) Basophils # (Manual) PT INR D-Dimer ABG pH POC ABG pCO2 POC ABG pO2 ABG pO2 ABG HCO3 ABG O2 Saturation ABG Base Excess ABG Hemoglobin ABG Oxyhemoglobin ABG Potassium ABG Glucose Oxyhemoglobin Carboxyhemoglobin Sodium 146 H Potassium Chloride Carbon Dioxide 37 H BUN Creatinine < 0.2 L Glucose 118 H POC Glucose 111 H Calcium Ferritin Total Bilirubin Alkaline Phosphatase Lactate Dehydrogenase Total Creatine Kinase CK-MB (CK-2) Rel Index Troponin T C-Reactive Protein Total Protein Albumin 3.7 L Prealbumin LDL Cholesterol Direct HDL Cholesterol Arterial Blood Glucose Arterial Blood Ionized Calcium Urine WBC (Auto) 03/07/20 03/07/20 03/07/20 05:20 17:45 23:32 WBC RBC Hgb Hct MCV MCH RDW Plt Count Lymph % (Auto) [place] % (Auto) Lymph # (Auto) [place] # (Auto) Seg Neutrophils % Seg Neuts % (Manual) Lymphocytes % (Manual) Monocytes % (Manual) Basophils % (Manual) Seg Neutrophils # Seg Neutrophils # Man Lymphocytes # (Manual) Monocytes # (Manual) Eosinophils # (Manual) Basophils # (Manual) PT INR D-Dimer ABG pH POC ABG pCO2 POC ABG pO2 ABG pO2 ABG HCO3 ABG O2 Saturation ABG Base Excess ABG Hemoglobin ABG Oxyhemoglobin ABG Potassium ABG Glucose Oxyhemoglobin Carboxyhemoglobin Sodium Potassium Chloride Carbon Dioxide BUN Creatinine Glucose POC Glucose 113 H 124 H 210 H Calcium Ferritin Total Bilirubin Alkaline Phosphatase Lactate Dehydrogenase Total Creatine Kinase CK-MB (CK-2) Rel Index Troponin T C-Reactive Protein Total Protein Albumin Prealbumin LDL Cholesterol Direct HDL Cholesterol Arterial Blood Glucose Arterial Blood Ionized Calcium Urine WBC (Auto) 03/08/20 03/08/20 03/08/20 05:35 06:43 06:43 WBC 28.9 H RBC 3.53 L Hgb 9.7 L Hct 30.3 L MCV MCH RDW 15.6 H Plt Count 578 H Lymph % (Auto) [place] % (Auto) Lymph # (Auto) [place] # (Auto) Seg Neutrophils % Seg Neuts % (Manual) 93.0 H Lymphocytes % (Manual) 4.0 L Monocytes % (Manual) Basophils % (Manual) Seg Neutrophils # Seg Neutrophils # Man 26.9 H Lymphocytes # (Manual) Monocytes # (Manual) Eosinophils # (Manual) Basophils # (Manual) PT INR D-Dimer ABG pH POC ABG pCO2 POC ABG pO2 ABG pO2 ABG HCO3 ABG O2 Saturation ABG Base Excess ABG Hemoglobin ABG Oxyhemoglobin ABG Potassium ABG Glucose Oxyhemoglobin Carboxyhemoglobin Sodium 146 H Potassium Chloride Carbon Dioxide 35 H BUN 34 H Creatinine 0.3 L D Glucose 125 H POC Glucose 147 H Calcium Ferritin Total Bilirubin Alkaline Phosphatase Lactate Dehydrogenase Total Creatine Kinase CK-MB (CK-2) Rel Index Troponin T C-Reactive Protein Total Protein 5.9 L Albumin 3.2 L Prealbumin LDL Cholesterol Direct HDL Cholesterol Arterial Blood Glucose Arterial Blood Ionized Calcium Urine WBC (Auto) 03/08/20 03/08/20 03/08/20 08:57 11:14 12:34 WBC RBC Hgb Hct MCV MCH RDW Plt Count Lymph % (Auto) [place] % (Auto) Lymph # (Auto) [place] # (Auto) Seg Neutrophils % Seg Neuts % (Manual) Lymphocytes % (Manual) Monocytes % (Manual) Basophils % (Manual) Seg Neutrophils # Seg Neutrophils # Man Lymphocytes # (Manual) Monocytes # (Manual) Eosinophils # (Manual) Basophils # (Manual) PT INR D-Dimer ABG pH POC ABG pCO2 63.1 H POC ABG pO2 ABG pO2 ABG HCO3 ABG O2 Saturation ABG Base Excess ABG Hemoglobin 10.9 L ABG Oxyhemoglobin ABG Potassium ABG Glucose 176 H Oxyhemoglobin Carboxyhemoglobin Sodium Potassium Chloride Carbon Dioxide BUN Creatinine Glucose POC Glucose 171 H Calcium Ferritin Total Bilirubin Alkaline Phosphatase Lactate Dehydrogenase Total Creatine Kinase CK-MB (CK-2) Rel Index Troponin T C-Reactive Protein Total Protein Albumin Prealbumin LDL Cholesterol Direct HDL Cholesterol Arterial Blood Glucose 176 H Arterial Blood Ionized Calcium 4.5 L Urine WBC (Auto) 10.0 H 03/08/20 03/08/20 03/09/20 18:02 23:43 05:49 WBC RBC Hgb Hct MCV MCH RDW Plt Count Lymph % (Auto) [place] % (Auto) Lymph # (Auto) [place] # (Auto) Seg Neutrophils % Seg Neuts % (Manual) Lymphocytes % (Manual) Monocytes % (Manual) Basophils % (Manual) Seg Neutrophils # Seg Neutrophils # Man Lymphocytes # (Manual) Monocytes # (Manual) Eosinophils # (Manual) Basophils # (Manual) PT INR D-Dimer ABG pH POC ABG pCO2 POC ABG pO2 ABG pO2 ABG HCO3 ABG O2 Saturation ABG Base Excess ABG Hemoglobin ABG Oxyhemoglobin ABG Potassium ABG Glucose Oxyhemoglobin Carboxyhemoglobin Sodium Potassium Chloride Carbon Dioxide BUN Creatinine Glucose POC Glucose 157 H 134 H 163 H Calcium Ferritin Total Bilirubin Alkaline Phosphatase Lactate Dehydrogenase Total Creatine Kinase CK-MB (CK-2) Rel Index Troponin T C-Reactive Protein Total Protein Albumin Prealbumin LDL Cholesterol Direct HDL Cholesterol Arterial Blood Glucose Arterial Blood Ionized Calcium Urine WBC (Auto) 03/09/20 03/09/20 03/09/20 08:35 08:35 12:11 WBC 23.4 H RBC 3.36 L Hgb 9.3 L Hct 28.8 L MCV MCH RDW 15.9 H Plt Count 521 H Lymph % (Auto) [place] % (Auto) Lymph # (Auto) [place] # (Auto) Seg Neutrophils % Seg Neuts % (Manual) 87.0 H Lymphocytes % (Manual) 4.0 L Monocytes % (Manual) 9.0 H Basophils % (Manual) Seg Neutrophils # Seg Neutrophils # Man 20.4 H Lymphocytes # (Manual) 0.9 L Monocytes # (Manual) 2.1 H Eosinophils # (Manual) Basophils # (Manual) PT INR D-Dimer ABG pH POC ABG pCO2 POC ABG pO2 ABG pO2 ABG HCO3 ABG O2 Saturation ABG Base Excess ABG Hemoglobin ABG Oxyhemoglobin ABG Potassium ABG Glucose Oxyhemoglobin Carboxyhemoglobin Sodium 147 H Potassium Chloride Carbon Dioxide 37 H BUN 63 H Creatinine Glucose 154 H POC Glucose 128 H Calcium Ferritin Total Bilirubin Alkaline Phosphatase Lactate Dehydrogenase Total Creatine Kinase CK-MB (CK-2) Rel Index Troponin T C-Reactive Protein Total Protein Albumin Prealbumin LDL Cholesterol Direct HDL Cholesterol Arterial Blood Glucose Arterial Blood Ionized Calcium Urine WBC (Auto) 03/09/20 03/10/20 03/10/20 17:51 00:25 05:41 WBC RBC Hgb Hct MCV MCH RDW Plt Count Lymph % (Auto) [place] % (Auto) Lymph # (Auto) [place] # (Auto) Seg Neutrophils % Seg Neuts % (Manual) Lymphocytes % (Manual) Monocytes % (Manual) Basophils % (Manual) Seg Neutrophils # Seg Neutrophils # Man Lymphocytes # (Manual) Monocytes # (Manual) Eosinophils # (Manual) Basophils # (Manual) PT INR D-Dimer ABG pH POC ABG pCO2 POC ABG pO2 ABG pO2 ABG HCO3 ABG O2 Saturation ABG Base Excess ABG Hemoglobin ABG Oxyhemoglobin ABG Potassium ABG Glucose Oxyhemoglobin Carboxyhemoglobin Sodium Potassium Chloride Carbon Dioxide BUN Creatinine Glucose POC Glucose 127 H 128 H 153 H Calcium Ferritin Total Bilirubin Alkaline Phosphatase Lactate Dehydrogenase Total Creatine Kinase CK-MB (CK-2) Rel Index Troponin T C-Reactive Protein Total Protein Albumin Prealbumin LDL Cholesterol Direct HDL Cholesterol Arterial Blood Glucose Arterial Blood Ionized Calcium Urine WBC (Auto) 03/10/20 03/10/20 03/10/20 06:14 06:14 12:02 WBC 18.3 H RBC 3.45 L Hgb 9.5 L Hct 29.5 L MCV MCH RDW 16.1 H Plt Count 494 H Lymph % (Auto) [place] % (Auto) Lymph # (Auto) [place] # (Auto) Seg Neutrophils % Seg Neuts % (Manual) 95.0 H Lymphocytes % (Manual) 1.0 L Monocytes % (Manual) Basophils % (Manual) Seg Neutrophils # Seg Neutrophils # Man 17.4 H Lymphocytes # (Manual) 0.2 L Monocytes # (Manual) Eosinophils # (Manual) Basophils # (Manual) PT INR D-Dimer ABG pH POC ABG pCO2 POC ABG pO2 ABG pO2 ABG HCO3 ABG O2 Saturation ABG Base Excess ABG Hemoglobin ABG Oxyhemoglobin ABG Potassium ABG Glucose Oxyhemoglobin Carboxyhemoglobin Sodium 149 H Potassium Chloride Carbon Dioxide 35 H BUN 34 H Creatinine 0.2 L D Glucose 177 H POC Glucose 151 H Calcium Ferritin Total Bilirubin Alkaline Phosphatase Lactate Dehydrogenase Total Creatine Kinase CK-MB (CK-2) Rel Index Troponin T C-Reactive Protein Total Protein Albumin Prealbumin LDL Cholesterol Direct HDL Cholesterol Arterial Blood Glucose Arterial Blood Ionized Calcium Urine WBC (Auto) 03/10/20 03/10/20 03/11/20 17:41 23:53 05:02 WBC RBC Hgb Hct MCV MCH RDW Plt Count Lymph % (Auto) [place] % (Auto) Lymph # (Auto) [place] # (Auto) Seg Neutrophils % Seg Neuts % (Manual) Lymphocytes % (Manual) Monocytes % (Manual) Basophils % (Manual) Seg Neutrophils # Seg Neutrophils # Man Lymphocytes # (Manual) Monocytes # (Manual) Eosinophils # (Manual) Basophils # (Manual) PT INR D-Dimer ABG pH POC ABG pCO2 POC ABG pO2 ABG pO2 ABG HCO3 ABG O2 Saturation ABG Base Excess ABG Hemoglobin ABG Oxyhemoglobin ABG Potassium ABG Glucose Oxyhemoglobin Carboxyhemoglobin Sodium Potassium Chloride Carbon Dioxide BUN Creatinine Glucose POC Glucose 168 H 142 H 146 H Calcium Ferritin Total Bilirubin Alkaline Phosphatase Lactate Dehydrogenase Total Creatine Kinase CK-MB (CK-2) Rel Index Troponin T C-Reactive Protein Total Protein Albumin Prealbumin LDL Cholesterol Direct HDL Cholesterol Arterial Blood Glucose Arterial Blood Ionized Calcium Urine WBC (Auto) 03/11/20 03/11/20 03/11/20 11:30 14:01 14:01 WBC 19.7 H RBC 3.04 L Hgb 8.7 L Hct 25.8 L MCV MCH RDW 15.6 H Plt Count Lymph % (Auto) [place] % (Auto) Lymph # (Auto) [place] # (Auto) Seg Neutrophils % Seg Neuts % (Manual) Lymphocytes % (Manual) Monocytes % (Manual) Basophils % (Manual) Seg Neutrophils # Seg Neutrophils # Man Lymphocytes # (Manual) Monocytes # (Manual) Eosinophils # (Manual) Basophils # (Manual) PT INR D-Dimer ABG pH POC ABG pCO2 POC ABG pO2 ABG pO2 ABG HCO3 ABG O2 Saturation ABG Base Excess ABG Hemoglobin ABG Oxyhemoglobin ABG Potassium ABG Glucose Oxyhemoglobin Carboxyhemoglobin Sodium 151 H Potassium Chloride Carbon Dioxide 37 H BUN Creatinine < 0.2 L Glucose 171 H POC Glucose 248 H Calcium Ferritin Total Bilirubin Alkaline Phosphatase Lactate Dehydrogenase Total Creatine Kinase CK-MB (CK-2) Rel Index Troponin T C-Reactive Protein Total Protein Albumin Prealbumin LDL Cholesterol Direct HDL Cholesterol Arterial Blood Glucose Arterial Blood Ionized Calcium Urine WBC (Auto) 03/11/20 03/11/20 03/12/20 17:09 23:52 04:39 WBC 19.9 H RBC 3.16 L Hgb 8.9 L Hct 27.5 L MCV MCH RDW 15.7 H Plt Count Lymph % (Auto) 6.8 L [place] % (Auto) Lymph # (Auto) [place] # (Auto) 1.2 H Seg Neutrophils % 86.0 H Seg Neuts % (Manual) Lymphocytes % (Manual) Monocytes % (Manual) Basophils % (Manual) Seg Neutrophils # 17.1 H Seg Neutrophils # Man Lymphocytes # (Manual) Monocytes # (Manual) Eosinophils # (Manual) Basophils # (Manual) PT INR D-Dimer ABG pH POC ABG pCO2 POC ABG pO2 ABG pO2 ABG HCO3 ABG O2 Saturation ABG Base Excess ABG Hemoglobin ABG Oxyhemoglobin ABG Potassium ABG Glucose Oxyhemoglobin Carboxyhemoglobin Sodium Potassium Chloride Carbon Dioxide BUN Creatinine Glucose POC Glucose 124 H 131 H Calcium Ferritin Total Bilirubin Alkaline Phosphatase Lactate Dehydrogenase Total Creatine Kinase CK-MB (CK-2) Rel Index Troponin T C-Reactive Protein Total Protein Albumin Prealbumin LDL Cholesterol Direct HDL Cholesterol Arterial Blood Glucose Arterial Blood Ionized Calcium Urine WBC (Auto) 03/12/20 03/12/20 03/12/20 04:39 05:28 11:34 WBC RBC Hgb Hct MCV MCH RDW Plt Count Lymph % (Auto) [place] % (Auto) Lymph # (Auto) [place] # (Auto) Seg Neutrophils % Seg Neuts % (Manual) Lymphocytes % (Manual) Monocytes % (Manual) Basophils % (Manual) Seg Neutrophils # Seg Neutrophils # Man Lymphocytes # (Manual) Monocytes # (Manual) Eosinophils # (Manual) Basophils # (Manual) PT INR D-Dimer ABG pH POC ABG pCO2 POC ABG pO2 ABG pO2 ABG HCO3 ABG O2 Saturation ABG Base Excess ABG Hemoglobin ABG Oxyhemoglobin ABG Potassium ABG Glucose Oxyhemoglobin Carboxyhemoglobin Sodium 147 H Potassium Chloride Carbon Dioxide 40 H BUN Creatinine < 0.2 L Glucose 175 H POC Glucose 167 H 144 H Calcium Ferritin Total Bilirubin Alkaline Phosphatase Lactate Dehydrogenase Total Creatine Kinase CK-MB (CK-2) Rel Index Troponin T C-Reactive Protein Total Protein Albumin Prealbumin LDL Cholesterol Direct HDL Cholesterol Arterial Blood Glucose Arterial Blood Ionized Calcium Urine WBC (Auto) 03/12/20 03/12/20 03/13/20 17:32 23:57 05:57 WBC RBC Hgb Hct MCV MCH RDW Plt Count Lymph % (Auto) [place] % (Auto) Lymph # (Auto) [place] # (Auto) Seg Neutrophils % Seg Neuts % (Manual) Lymphocytes % (Manual) Monocytes % (Manual) Basophils % (Manual) Seg Neutrophils # Seg Neutrophils # Man Lymphocytes # (Manual) Monocytes # (Manual) Eosinophils # (Manual) Basophils # (Manual) PT INR D-Dimer ABG pH POC ABG pCO2 POC ABG pO2 ABG pO2 ABG HCO3 ABG O2 Saturation ABG Base Excess ABG Hemoglobin ABG Oxyhemoglobin ABG Potassium ABG Glucose Oxyhemoglobin Carboxyhemoglobin Sodium Potassium Chloride Carbon Dioxide BUN Creatinine Glucose POC Glucose 141 H 137 H 161 H Calcium Ferritin Total Bilirubin Alkaline Phosphatase Lactate Dehydrogenase Total Creatine Kinase CK-MB (CK-2) Rel Index Troponin T C-Reactive Protein Total Protein Albumin Prealbumin LDL Cholesterol Direct HDL Cholesterol Arterial Blood Glucose Arterial Blood Ionized Calcium Urine WBC (Auto) 03/13/20 03/13/20 03/13/20 12:28 14:14 18:39 WBC RBC Hgb Hct MCV MCH RDW Plt Count Lymph % (Auto) [place] % (Auto) Lymph # (Auto) [place] # (Auto) Seg Neutrophils % Seg Neuts % (Manual) Lymphocytes % (Manual) Monocytes % (Manual) Basophils % (Manual) Seg Neutrophils # Seg Neutrophils # Man Lymphocytes # (Manual) Monocytes # (Manual) Eosinophils # (Manual) Basophils # (Manual) PT INR D-Dimer ABG pH POC ABG pCO2 POC ABG pO2 ABG pO2 ABG HCO3 ABG O2 Saturation ABG Base Excess ABG Hemoglobin ABG Oxyhemoglobin ABG Potassium ABG Glucose Oxyhemoglobin Carboxyhemoglobin Sodium Potassium Chloride Carbon Dioxide 39 H BUN Creatinine < 0.2 L Glucose 129 H POC Glucose 130 H 125 H Calcium Ferritin Total Bilirubin Alkaline Phosphatase Lactate Dehydrogenase Total Creatine Kinase CK-MB (CK-2) Rel Index Troponin T C-Reactive Protein Total Protein Albumin Prealbumin LDL Cholesterol Direct HDL Cholesterol Arterial Blood Glucose Arterial Blood Ionized Calcium Urine WBC (Auto) 03/13/20 03/14/20 03/14/20 23:33 05:24 08:07 WBC 16.8 H RBC 2.81 L Hgb 7.9 L Hct 23.9 L MCV MCH RDW 15.9 H Plt Count Lymph % (Auto) [place] % (Auto) Lymph # (Auto) [place] # (Auto) Seg Neutrophils % Seg Neuts % (Manual) 84.0 H Lymphocytes % (Manual) 10.0 L Monocytes % (Manual) Basophils % (Manual) Seg Neutrophils # Seg Neutrophils # Man 14.1 H Lymphocytes # (Manual) Monocytes # (Manual) Eosinophils # (Manual) Basophils # (Manual) PT INR D-Dimer ABG pH POC ABG pCO2 POC ABG pO2 ABG pO2 ABG HCO3 ABG O2 Saturation ABG Base Excess ABG Hemoglobin ABG Oxyhemoglobin ABG Potassium ABG Glucose Oxyhemoglobin Carboxyhemoglobin Sodium Potassium Chloride Carbon Dioxide BUN Creatinine Glucose POC Glucose 146 H 125 H Calcium Ferritin Total Bilirubin Alkaline Phosphatase Lactate Dehydrogenase Total Creatine Kinase CK-MB (CK-2) Rel Index Troponin T C-Reactive Protein Total Protein Albumin Prealbumin LDL Cholesterol Direct HDL Cholesterol Arterial Blood Glucose Arterial Blood Ionized Calcium Urine WBC (Auto) 03/14/20 03/14/20 03/14/20 08:07 12:21 18:26 WBC RBC Hgb Hct MCV MCH RDW Plt Count Lymph % (Auto) [place] % (Auto) Lymph # (Auto) [place] # (Auto) Seg Neutrophils % Seg Neuts % (Manual) Lymphocytes % (Manual) Monocytes % (Manual) Basophils % (Manual) Seg Neutrophils # Seg Neutrophils # Man Lymphocytes # (Manual) Monocytes # (Manual) Eosinophils # (Manual) Basophils # (Manual) PT INR D-Dimer ABG pH POC ABG pCO2 POC ABG pO2 ABG pO2 ABG HCO3 ABG O2 Saturation ABG Base Excess ABG Hemoglobin ABG Oxyhemoglobin ABG Potassium ABG Glucose Oxyhemoglobin Carboxyhemoglobin Sodium Potassium Chloride 97.0 L Carbon Dioxide 37 H BUN Creatinine < 0.2 L Glucose 129 H POC Glucose 109 H 142 H Calcium 8.3 L Ferritin Total Bilirubin Alkaline Phosphatase Lactate Dehydrogenase Total Creatine Kinase CK-MB (CK-2) Rel Index Troponin T C-Reactive Protein Total Protein Albumin Prealbumin LDL Cholesterol Direct HDL Cholesterol Arterial Blood Glucose Arterial Blood Ionized Calcium Urine WBC (Auto) 03/14/20 03/15/20 03/15/20 23:57 05:46 08:06 WBC 19.7 H RBC 3.29 L Hgb 9.1 L Hct 28.0 L MCV MCH RDW 15.9 H Plt Count Lymph % (Auto) [place] % (Auto) Lymph # (Auto) [place] # (Auto) Seg Neutrophils % Seg Neuts % (Manual) Lymphocytes % (Manual) Monocytes % (Manual) Basophils % (Manual) Seg Neutrophils # Seg Neutrophils # Man Lymphocytes # (Manual) Monocytes # (Manual) Eosinophils # (Manual) Basophils # (Manual) PT INR D-Dimer ABG pH POC ABG pCO2 POC ABG pO2 ABG pO2 ABG HCO3 ABG O2 Saturation ABG Base Excess ABG Hemoglobin ABG Oxyhemoglobin ABG Potassium ABG Glucose Oxyhemoglobin Carboxyhemoglobin Sodium Potassium Chloride Carbon Dioxide BUN Creatinine Glucose POC Glucose 157 H 118 H Calcium Ferritin Total Bilirubin Alkaline Phosphatase Lactate Dehydrogenase Total Creatine Kinase CK-MB (CK-2) Rel Index Troponin T C-Reactive Protein Total Protein Albumin Prealbumin LDL Cholesterol Direct HDL Cholesterol Arterial Blood Glucose Arterial Blood Ionized Calcium Urine WBC (Auto) 03/15/20 03/15/20 03/15/20 08:06 12:44 18:09 WBC RBC Hgb Hct MCV MCH RDW Plt Count Lymph % (Auto) [place] % (Auto) Lymph # (Auto) [place] # (Auto) Seg Neutrophils % Seg Neuts % (Manual) Lymphocytes % (Manual) Monocytes % (Manual) Basophils % (Manual) Seg Neutrophils # Seg Neutrophils # Man Lymphocytes # (Manual) Monocytes # (Manual) Eosinophils # (Manual) Basophils # (Manual) PT INR D-Dimer ABG pH POC ABG pCO2 POC ABG pO2 ABG pO2 ABG HCO3 ABG O2 Saturation ABG Base Excess ABG Hemoglobin ABG Oxyhemoglobin ABG Potassium ABG Glucose Oxyhemoglobin Carboxyhemoglobin Sodium 136 L Potassium Chloride 93.6 L Carbon Dioxide 37 H BUN Creatinine < 0.2 L Glucose 132 H POC Glucose 151 H 164 H Calcium Ferritin Total Bilirubin Alkaline Phosphatase Lactate Dehydrogenase Total Creatine Kinase CK-MB (CK-2) Rel Index Troponin T C-Reactive Protein Total Protein Albumin Prealbumin LDL Cholesterol Direct HDL Cholesterol Arterial Blood Glucose Arterial Blood Ionized Calcium Urine WBC (Auto) 03/15/20 03/16/20 03/16/20 23:26 05:39 11:58 WBC RBC Hgb Hct MCV MCH RDW Plt Count Lymph % (Auto) [place] % (Auto) Lymph # (Auto) [place] # (Auto) Seg Neutrophils % Seg Neuts % (Manual) Lymphocytes % (Manual) Monocytes % (Manual) Basophils % (Manual) Seg Neutrophils # Seg Neutrophils # Man Lymphocytes # (Manual) Monocytes # (Manual) Eosinophils # (Manual) Basophils # (Manual) PT INR D-Dimer ABG pH POC ABG pCO2 POC ABG pO2 ABG pO2 ABG HCO3 ABG O2 Saturation ABG Base Excess ABG Hemoglobin ABG Oxyhemoglobin ABG Potassium ABG Glucose Oxyhemoglobin Carboxyhemoglobin Sodium Potassium Chloride Carbon Dioxide BUN Creatinine Glucose POC Glucose 136 H 116 H 109 H Calcium Ferritin Total Bilirubin Alkaline Phosphatase Lactate Dehydrogenase Total Creatine Kinase CK-MB (CK-2) Rel Index Troponin T C-Reactive Protein Total Protein Albumin Prealbumin LDL Cholesterol Direct HDL Cholesterol Arterial Blood Glucose Arterial Blood Ionized Calcium Urine WBC (Auto) 03/16/20 03/17/20 03/17/20 23:56 04:40 04:40 WBC 18.0 H RBC 3.33 L Hgb 9.5 L Hct 28.8 L MCV MCH RDW 16.4 H Plt Count 499 H Lymph % (Auto) [place] % (Auto) Lymph # (Auto) [place] # (Auto) Seg Neutrophils % Seg Neuts % (Manual) 82.0 H Lymphocytes % (Manual) 8.0 L Monocytes % (Manual) Basophils % (Manual) Seg Neutrophils # Seg Neutrophils # Man 14.8 H Lymphocytes # (Manual) Monocytes # (Manual) 1.3 H Eosinophils # (Manual) Basophils # (Manual) 0.2 H PT INR D-Dimer ABG pH POC ABG pCO2 POC ABG pO2 ABG pO2 ABG HCO3 ABG O2 Saturation ABG Base Excess ABG Hemoglobin ABG Oxyhemoglobin ABG Potassium ABG Glucose Oxyhemoglobin Carboxyhemoglobin Sodium Potassium Chloride 97.7 L Carbon Dioxide 32 H BUN Creatinine < 0.2 L Glucose 114 H POC Glucose 131 H Calcium Ferritin Total Bilirubin Alkaline Phosphatase Lactate Dehydrogenase Total Creatine Kinase CK-MB (CK-2) Rel Index Troponin T C-Reactive Protein Total Protein Albumin Prealbumin LDL Cholesterol Direct HDL Cholesterol Arterial Blood Glucose Arterial Blood Ionized Calcium Urine WBC (Auto) 03/18/20 03/18/20 03/18/20 00:21 05:21 11:55 WBC RBC Hgb Hct MCV MCH RDW Plt Count Lymph % (Auto) [place] % (Auto) Lymph # (Auto) [place] # (Auto) Seg Neutrophils % Seg Neuts % (Manual) Lymphocytes % (Manual) Monocytes % (Manual) Basophils % (Manual) Seg Neutrophils # Seg Neutrophils # Man Lymphocytes # (Manual) Monocytes # (Manual) Eosinophils # (Manual) Basophils # (Manual) PT INR D-Dimer ABG pH POC ABG pCO2 POC ABG pO2 ABG pO2 ABG HCO3 ABG O2 Saturation ABG Base Excess ABG Hemoglobin ABG Oxyhemoglobin ABG Potassium ABG Glucose Oxyhemoglobin Carboxyhemoglobin Sodium Potassium Chloride Carbon Dioxide BUN Creatinine Glucose POC Glucose 124 H 138 H 119 H Calcium Ferritin Total Bilirubin Alkaline Phosphatase Lactate Dehydrogenase Total Creatine Kinase CK-MB (CK-2) Rel Index Troponin T C-Reactive Protein Total Protein Albumin Prealbumin LDL Cholesterol Direct HDL Cholesterol Arterial Blood Glucose Arterial Blood Ionized Calcium Urine WBC (Auto) 03/18/20 03/18/20 03/19/20 17:03 23:58 05:24 WBC RBC Hgb Hct MCV MCH RDW Plt Count Lymph % (Auto) [place] % (Auto) Lymph # (Auto) [place] # (Auto) Seg Neutrophils % Seg Neuts % (Manual) Lymphocytes % (Manual) Monocytes % (Manual) Basophils % (Manual) Seg Neutrophils # Seg Neutrophils # Man Lymphocytes # (Manual) Monocytes # (Manual) Eosinophils # (Manual) Basophils # (Manual) PT INR D-Dimer ABG pH POC ABG pCO2 POC ABG pO2 ABG pO2 ABG HCO3 ABG O2 Saturation ABG Base Excess ABG Hemoglobin ABG Oxyhemoglobin ABG Potassium ABG Glucose Oxyhemoglobin Carboxyhemoglobin Sodium Potassium Chloride Carbon Dioxide BUN Creatinine Glucose POC Glucose 128 H 128 H 115 H Calcium Ferritin Total Bilirubin Alkaline Phosphatase Lactate Dehydrogenase Total Creatine Kinase CK-MB (CK-2) Rel Index Troponin T C-Reactive Protein Total Protein Albumin Prealbumin LDL Cholesterol Direct HDL Cholesterol Arterial Blood Glucose Arterial Blood Ionized Calcium Urine WBC (Auto) 03/19/20 03/19/20 03/19/20 08:05 08:05 11:56 WBC 16.8 H RBC 3.36 L Hgb 9.4 L Hct 28.8 L MCV MCH RDW 17.4 H Plt Count 567 H Lymph % (Auto) 7.8 L [place] % (Auto) Lymph # (Auto) [place] # (Auto) 1.2 H Seg Neutrophils % 83.5 H Seg Neuts % (Manual) Lymphocytes % (Manual) Monocytes % (Manual) Basophils % (Manual) Seg Neutrophils # 14.1 H Seg Neutrophils # Man Lymphocytes # (Manual) Monocytes # (Manual) Eosinophils # (Manual) Basophils # (Manual) PT INR D-Dimer ABG pH POC ABG pCO2 POC ABG pO2 ABG pO2 ABG HCO3 ABG O2 Saturation ABG Base Excess ABG Hemoglobin ABG Oxyhemoglobin ABG Potassium ABG Glucose Oxyhemoglobin Carboxyhemoglobin Sodium Potassium Chloride Carbon Dioxide 36 H BUN Creatinine < 0.2 L Glucose 135 H POC Glucose 128 H Calcium Ferritin Total Bilirubin Alkaline Phosphatase Lactate Dehydrogenase Total Creatine Kinase CK-MB (CK-2) Rel Index Troponin T C-Reactive Protein Total Protein Albumin Prealbumin LDL Cholesterol Direct HDL Cholesterol Arterial Blood Glucose Arterial Blood Ionized Calcium Urine WBC (Auto) 03/19/20 03/20/20 03/20/20 23:59 05:12 16:52 WBC RBC Hgb Hct MCV MCH RDW Plt Count Lymph % (Auto) [place] % (Auto) Lymph # (Auto) [place] # (Auto) Seg Neutrophils % Seg Neuts % (Manual) Lymphocytes % (Manual) Monocytes % (Manual) Basophils % (Manual) Seg Neutrophils # Seg Neutrophils # Man Lymphocytes # (Manual) Monocytes # (Manual) Eosinophils # (Manual) Basophils # (Manual) PT INR D-Dimer ABG pH POC ABG pCO2 POC ABG pO2 ABG pO2 ABG HCO3 ABG O2 Saturation ABG Base Excess ABG Hemoglobin ABG Oxyhemoglobin ABG Potassium ABG Glucose Oxyhemoglobin Carboxyhemoglobin Sodium Potassium Chloride Carbon Dioxide BUN Creatinine Glucose POC Glucose 120 H 131 H 124 H Calcium Ferritin Total Bilirubin Alkaline Phosphatase Lactate Dehydrogenase Total Creatine Kinase CK-MB (CK-2) Rel Index Troponin T C-Reactive Protein Total Protein Albumin Prealbumin LDL Cholesterol Direct HDL Cholesterol Arterial Blood Glucose Arterial Blood Ionized Calcium Urine WBC (Auto) 03/20/20 03/21/20 03/21/20 23:35 04:50 07:35 WBC 15.2 H RBC 3.39 L Hgb 9.4 L Hct 29.4 L MCV MCH RDW 17.6 H Plt Count 518 H Lymph % (Auto) [place] % (Auto) Lymph # (Auto) [place] # (Auto) Seg Neutrophils % Seg Neuts % (Manual) 83.0 H Lymphocytes % (Manual) 10.0 L Monocytes % (Manual) Basophils % (Manual) 2.0 H Seg Neutrophils # Seg Neutrophils # Man 12.6 H Lymphocytes # (Manual) Monocytes # (Manual) Eosinophils # (Manual) Basophils # (Manual) 0.3 H PT INR D-Dimer ABG pH POC ABG pCO2 POC ABG pO2 ABG pO2 ABG HCO3 ABG O2 Saturation ABG Base Excess ABG Hemoglobin ABG Oxyhemoglobin ABG Potassium ABG Glucose Oxyhemoglobin Carboxyhemoglobin Sodium Potassium Chloride Carbon Dioxide BUN Creatinine Glucose POC Glucose 125 H 127 H Calcium Ferritin Total Bilirubin Alkaline Phosphatase Lactate Dehydrogenase Total Creatine Kinase CK-MB (CK-2) Rel Index Troponin T C-Reactive Protein Total Protein Albumin Prealbumin LDL Cholesterol Direct HDL Cholesterol Arterial Blood Glucose Arterial Blood Ionized Calcium Urine WBC (Auto) 03/21/20 03/21/20 03/21/20 07:35 11:45 17:22 WBC RBC Hgb Hct MCV MCH RDW Plt Count Lymph % (Auto) [place] % (Auto) Lymph # (Auto) [place] # (Auto) Seg Neutrophils % Seg Neuts % (Manual) Lymphocytes % (Manual) Monocytes % (Manual) Basophils % (Manual) Seg Neutrophils # Seg Neutrophils # Man Lymphocytes # (Manual) Monocytes # (Manual) Eosinophils # (Manual) Basophils # (Manual) PT INR D-Dimer ABG pH POC ABG pCO2 POC ABG pO2 ABG pO2 ABG HCO3 ABG O2 Saturation ABG Base Excess ABG Hemoglobin ABG Oxyhemoglobin ABG Potassium ABG Glucose Oxyhemoglobin Carboxyhemoglobin Sodium 136 L Potassium Chloride 97.7 L Carbon Dioxide 32 H BUN Creatinine < 0.2 L Glucose 103 H POC Glucose 126 H 120 H Calcium Ferritin Total Bilirubin Alkaline Phosphatase Lactate Dehydrogenase Total Creatine Kinase CK-MB (CK-2) Rel Index Troponin T C-Reactive Protein Total Protein Albumin Prealbumin LDL Cholesterol Direct HDL Cholesterol Arterial Blood Glucose Arterial Blood Ionized Calcium Urine WBC (Auto) 03/22/20 03/22/20 03/22/20 05:09 06:34 06:34 WBC 17.5 H RBC 3.52 L Hgb 10.0 L Hct 30.7 L MCV MCH RDW 17.5 H Plt Count 499 H Lymph % (Auto) [place] % (Auto) Lymph # (Auto) [place] # (Auto) Seg Neutrophils % Seg Neuts % (Manual) 80.0 H Lymphocytes % (Manual) 10.0 L Monocytes % (Manual) Basophils % (Manual) Seg Neutrophils # Seg Neutrophils # Man 14.0 H Lymphocytes # (Manual) Monocytes # (Manual) Eosinophils # (Manual) Basophils # (Manual) PT INR D-Dimer ABG pH POC ABG pCO2 POC ABG pO2 ABG pO2 ABG HCO3 ABG O2 Saturation ABG Base Excess ABG Hemoglobin ABG Oxyhemoglobin ABG Potassium ABG Glucose Oxyhemoglobin Carboxyhemoglobin Sodium Potassium Chloride 96.6 L Carbon Dioxide 38 H BUN Creatinine < 0.2 L Glucose 139 H POC Glucose 125 H Calcium Ferritin Total Bilirubin Alkaline Phosphatase Lactate Dehydrogenase Total Creatine Kinase CK-MB (CK-2) Rel Index Troponin T C-Reactive Protein Total Protein Albumin Prealbumin LDL Cholesterol Direct HDL Cholesterol Arterial Blood Glucose Arterial Blood Ionized Calcium Urine WBC (Auto) 03/22/20 03/22/20 03/22/20 11:45 18:00 23:32 WBC RBC Hgb Hct MCV MCH RDW Plt Count Lymph % (Auto) [place] % (Auto) Lymph # (Auto) [place] # (Auto) Seg Neutrophils % Seg Neuts % (Manual) Lymphocytes % (Manual) Monocytes % (Manual) Basophils % (Manual) Seg Neutrophils # Seg Neutrophils # Man Lymphocytes # (Manual) Monocytes # (Manual) Eosinophils # (Manual) Basophils # (Manual) PT INR D-Dimer ABG pH POC ABG pCO2 POC ABG pO2 ABG pO2 ABG HCO3 ABG O2 Saturation ABG Base Excess ABG Hemoglobin ABG Oxyhemoglobin ABG Potassium ABG Glucose Oxyhemoglobin Carboxyhemoglobin Sodium Potassium Chloride Carbon Dioxide BUN Creatinine Glucose POC Glucose 135 H 133 H Calcium Ferritin Total Bilirubin Alkaline Phosphatase Lactate Dehydrogenase Total Creatine Kinase CK-MB (CK-2) Rel Index Troponin T 0.113 H* C-Reactive Protein Total Protein Albumin Prealbumin LDL Cholesterol Direct HDL Cholesterol Arterial Blood Glucose Arterial Blood Ionized Calcium Urine WBC (Auto) 03/23/20 03/23/20 03/23/20 01:47 06:21 07:57 WBC RBC Hgb Hct MCV MCH RDW Plt Count Lymph % (Auto) [place] % (Auto) Lymph # (Auto) [place] # (Auto) Seg Neutrophils % Seg Neuts % (Manual) Lymphocytes % (Manual) Monocytes % (Manual) Basophils % (Manual) Seg Neutrophils # Seg Neutrophils # Man Lymphocytes # (Manual) Monocytes # (Manual) Eosinophils # (Manual) Basophils # (Manual) PT INR D-Dimer ABG pH POC ABG pCO2 POC ABG pO2 ABG pO2 ABG HCO3 ABG O2 Saturation ABG Base Excess ABG Hemoglobin ABG Oxyhemoglobin ABG Potassium ABG Glucose Oxyhemoglobin Carboxyhemoglobin Sodium Potassium Chloride Carbon Dioxide BUN Creatinine Glucose POC Glucose 130 H Calcium Ferritin Total Bilirubin Alkaline Phosphatase Lactate Dehydrogenase Total Creatine Kinase CK-MB (CK-2) Rel Index Troponin T 0.143 H* D 0.105 H* D C-Reactive Protein Total Protein Albumin Prealbumin LDL Cholesterol Direct HDL Cholesterol Arterial Blood Glucose Arterial Blood Ionized Calcium Urine WBC (Auto) 03/23/20 03/24/20 03/24/20 12:02 05:33 07:15 WBC 18.0 H RBC Hgb 11.0 L Hct 34.0 L MCV MCH RDW 17.4 H Plt Count 520 H Lymph % (Auto) [place] % (Auto) Lymph # (Auto) [place] # (Auto) Seg Neutrophils % Seg Neuts % (Manual) 88.0 H Lymphocytes % (Manual) 7.0 L Monocytes % (Manual) Basophils % (Manual) Seg Neutrophils # Seg Neutrophils # Man 15.8 H Lymphocytes # (Manual) Monocytes # (Manual) Eosinophils # (Manual) Basophils # (Manual) PT INR D-Dimer ABG pH POC ABG pCO2 POC ABG pO2 ABG pO2 ABG HCO3 ABG O2 Saturation ABG Base Excess ABG Hemoglobin ABG Oxyhemoglobin ABG Potassium ABG Glucose Oxyhemoglobin Carboxyhemoglobin Sodium Potassium Chloride Carbon Dioxide BUN Creatinine Glucose POC Glucose 137 H 112 H Calcium Ferritin Total Bilirubin Alkaline Phosphatase Lactate Dehydrogenase Total Creatine Kinase CK-MB (CK-2) Rel Index Troponin T C-Reactive Protein Total Protein Albumin Prealbumin LDL Cholesterol Direct HDL Cholesterol Arterial Blood Glucose Arterial Blood Ionized Calcium Urine WBC (Auto) 03/24/20 03/24/20 03/24/20 07:15 11:22 23:30 WBC RBC Hgb Hct MCV MCH RDW Plt Count Lymph % (Auto) [place] % (Auto) Lymph # (Auto) [place] # (Auto) Seg Neutrophils % Seg Neuts % (Manual) Lymphocytes % (Manual) Monocytes % (Manual) Basophils % (Manual) Seg Neutrophils # Seg Neutrophils # Man Lymphocytes # (Manual) Monocytes # (Manual) Eosinophils # (Manual) Basophils # (Manual) PT INR D-Dimer ABG pH POC ABG pCO2 POC ABG pO2 ABG pO2 ABG HCO3 ABG O2 Saturation ABG Base Excess ABG Hemoglobin ABG Oxyhemoglobin ABG Potassium ABG Glucose Oxyhemoglobin Carboxyhemoglobin Sodium Potassium Chloride 96.6 L Carbon Dioxide 38 H BUN Creatinine < 0.2 L Glucose 141 H POC Glucose 130 H 120 H Calcium Ferritin Total Bilirubin Alkaline Phosphatase Lactate Dehydrogenase Total Creatine Kinase CK-MB (CK-2) Rel Index Troponin T C-Reactive Protein Total Protein Albumin Prealbumin LDL Cholesterol Direct HDL Cholesterol Arterial Blood Glucose Arterial Blood Ionized Calcium Urine WBC (Auto) 03/25/20 03/25/20 03/25/20 05:48 17:53 23:18 WBC RBC Hgb Hct MCV MCH RDW Plt Count Lymph % (Auto) [place] % (Auto) Lymph # (Auto) [place] # (Auto) Seg Neutrophils % Seg Neuts % (Manual) Lymphocytes % (Manual) Monocytes % (Manual) Basophils % (Manual) Seg Neutrophils # Seg Neutrophils # Man Lymphocytes # (Manual) Monocytes # (Manual) Eosinophils # (Manual) Basophils # (Manual) PT INR D-Dimer ABG pH POC ABG pCO2 POC ABG pO2 ABG pO2 ABG HCO3 ABG O2 Saturation ABG Base Excess ABG Hemoglobin ABG Oxyhemoglobin ABG Potassium ABG Glucose Oxyhemoglobin Carboxyhemoglobin Sodium Potassium Chloride Carbon Dioxide BUN Creatinine Glucose POC Glucose 124 H 109 H 131 H Calcium Ferritin Total Bilirubin Alkaline Phosphatase Lactate Dehydrogenase Total Creatine Kinase CK-MB (CK-2) Rel Index Troponin T C-Reactive Protein Total Protein Albumin Prealbumin LDL Cholesterol Direct HDL Cholesterol Arterial Blood Glucose Arterial Blood Ionized Calcium Urine WBC (Auto) 03/26/20 03/26/20 03/26/20 05:21 08:49 08:49 WBC 19.7 H RBC Hgb 10.7 L Hct 33.5 L MCV MCH 27 L RDW 17.1 H Plt Count 480 H Lymph % (Auto) 5.7 L [place] % (Auto) Lymph # (Auto) 1.1 L [place] # (Auto) 1.2 H Seg Neutrophils % 87.7 H Seg Neuts % (Manual) Lymphocytes % (Manual) Monocytes % (Manual) Basophils % (Manual) Seg Neutrophils # 17.2 H Seg Neutrophils # Man Lymphocytes # (Manual) Monocytes # (Manual) Eosinophils # (Manual) Basophils # (Manual) PT INR D-Dimer ABG pH POC ABG pCO2 POC ABG pO2 ABG pO2 ABG HCO3 ABG O2 Saturation ABG Base Excess ABG Hemoglobin ABG Oxyhemoglobin ABG Potassium ABG Glucose Oxyhemoglobin Carboxyhemoglobin Sodium Potassium Chloride 97.2 L Carbon Dioxide 36 H BUN Creatinine < 0.2 L Glucose 127 H POC Glucose 116 H Calcium Ferritin Total Bilirubin Alkaline Phosphatase Lactate Dehydrogenase Total Creatine Kinase CK-MB (CK-2) Rel Index Troponin T C-Reactive Protein Total Protein Albumin Prealbumin LDL Cholesterol Direct HDL Cholesterol Arterial Blood Glucose Arterial Blood Ionized Calcium Urine WBC (Auto) 03/26/20 03/26/20 03/26/20 11:38 18:44 23:06 WBC RBC Hgb Hct MCV MCH RDW Plt Count Lymph % (Auto) [place] % (Auto) Lymph # (Auto) [place] # (Auto) Seg Neutrophils % Seg Neuts % (Manual) Lymphocytes % (Manual) Monocytes % (Manual) Basophils % (Manual) Seg Neutrophils # Seg Neutrophils # Man Lymphocytes # (Manual) Monocytes # (Manual) Eosinophils # (Manual) Basophils # (Manual) PT INR D-Dimer ABG pH POC ABG pCO2 POC ABG pO2 ABG pO2 ABG HCO3 ABG O2 Saturation ABG Base Excess ABG Hemoglobin ABG Oxyhemoglobin ABG Potassium ABG Glucose Oxyhemoglobin Carboxyhemoglobin Sodium Potassium Chloride Carbon Dioxide BUN Creatinine Glucose POC Glucose 120 H 111 H 134 H Calcium Ferritin Total Bilirubin Alkaline Phosphatase Lactate Dehydrogenase Total Creatine Kinase CK-MB (CK-2) Rel Index Troponin T C-Reactive Protein Total Protein Albumin Prealbumin LDL Cholesterol Direct HDL Cholesterol Arterial Blood Glucose Arterial Blood Ionized Calcium Urine WBC (Auto) 03/27/20 03/27/20 03/27/20 05:41 05:59 05:59 WBC 18.6 H RBC Hgb 10.1 L Hct 31.4 L MCV MCH RDW 17.2 H Plt Count Lymph % (Auto) 8.0 L [place] % (Auto) Lymph # (Auto) [place] # (Auto) 1.2 H Seg Neutrophils % 84.7 H Seg Neuts % (Manual) Lymphocytes % (Manual) Monocytes % (Manual) Basophils % (Manual) Seg Neutrophils # 15.8 H Seg Neutrophils # Man Lymphocytes # (Manual) Monocytes # (Manual) Eosinophils # (Manual) Basophils # (Manual) PT INR D-Dimer ABG pH POC ABG pCO2 POC ABG pO2 ABG pO2 ABG HCO3 ABG O2 Saturation ABG Base Excess ABG Hemoglobin ABG Oxyhemoglobin ABG Potassium ABG Glucose Oxyhemoglobin Carboxyhemoglobin Sodium Potassium Chloride Carbon Dioxide 34 H BUN Creatinine < 0.2 L Glucose 127 H POC Glucose 129 H Calcium Ferritin Total Bilirubin Alkaline Phosphatase Lactate Dehydrogenase Total Creatine Kinase CK-MB (CK-2) Rel Index Troponin T C-Reactive Protein Total Protein Albumin Prealbumin LDL Cholesterol Direct HDL Cholesterol Arterial Blood Glucose Arterial Blood Ionized Calcium Urine WBC (Auto) 03/27/20 03/27/20 03/28/20 17:28 23:22 05:23 WBC RBC Hgb Hct MCV MCH RDW Plt Count Lymph % (Auto) [place] % (Auto) Lymph # (Auto) [place] # (Auto) Seg Neutrophils % Seg Neuts % (Manual) Lymphocytes % (Manual) Monocytes % (Manual) Basophils % (Manual) Seg Neutrophils # Seg Neutrophils # Man Lymphocytes # (Manual) Monocytes # (Manual) Eosinophils # (Manual) Basophils # (Manual) PT INR D-Dimer ABG pH POC ABG pCO2 POC ABG pO2 ABG pO2 ABG HCO3 ABG O2 Saturation ABG Base Excess ABG Hemoglobin ABG Oxyhemoglobin ABG Potassium ABG Glucose Oxyhemoglobin Carboxyhemoglobin Sodium Potassium Chloride Carbon Dioxide BUN Creatinine Glucose POC Glucose 108 H 119 H 129 H Calcium Ferritin Total Bilirubin Alkaline Phosphatase Lactate Dehydrogenase Total Creatine Kinase CK-MB (CK-2) Rel Index Troponin T C-Reactive Protein Total Protein Albumin Prealbumin LDL Cholesterol Direct HDL Cholesterol Arterial Blood Glucose Arterial Blood Ionized Calcium Urine WBC (Auto) 03/28/20 03/28/20 03/28/20 10:28 10:28 11:36 WBC 23.6 H RBC 3.62 L Hgb 10.0 L Hct 30.8 L MCV MCH RDW 16.4 H Plt Count Lymph % (Auto) [place] % (Auto) Lymph # (Auto) [place] # (Auto) Seg Neutrophils % Seg Neuts % (Manual) 89.0 H Lymphocytes % (Manual) 5.0 L Monocytes % (Manual) Basophils % (Manual) Seg Neutrophils # Seg Neutrophils # Man 21.0 H Lymphocytes # (Manual) Monocytes # (Manual) 1.2 H Eosinophils # (Manual) Basophils # (Manual) 0.2 H PT INR D-Dimer ABG pH POC ABG pCO2 POC ABG pO2 ABG pO2 ABG HCO3 ABG O2 Saturation ABG Base Excess ABG Hemoglobin ABG Oxyhemoglobin ABG Potassium ABG Glucose Oxyhemoglobin Carboxyhemoglobin Sodium 134 L Potassium Chloride 94.2 L Carbon Dioxide 35 H BUN Creatinine < 0.2 L Glucose 134 H POC Glucose Calcium Ferritin Total Bilirubin Alkaline Phosphatase Lactate Dehydrogenase Total Creatine Kinase CK-MB (CK-2) Rel Index Troponin T C-Reactive Protein Total Protein Albumin Prealbumin LDL Cholesterol Direct HDL Cholesterol Arterial Blood Glucose Arterial Blood Ionized Calcium Urine WBC (Auto) 39.0 H 03/28/20 03/28/20 03/28/20 11:51 17:08 17:17 WBC RBC Hgb Hct MCV MCH RDW Plt Count Lymph % (Auto) [place] % (Auto) Lymph # (Auto) [place] # (Auto) Seg Neutrophils % Seg Neuts % (Manual) Lymphocytes % (Manual) Monocytes % (Manual) Basophils % (Manual) Seg Neutrophils # Seg Neutrophils # Man Lymphocytes # (Manual) Monocytes # (Manual) Eosinophils # (Manual) Basophils # (Manual) PT INR D-Dimer ABG pH POC ABG pCO2 POC ABG pO2 ABG pO2 ABG HCO3 ABG O2 Saturation ABG Base Excess ABG Hemoglobin ABG Oxyhemoglobin ABG Potassium ABG Glucose Oxyhemoglobin Carboxyhemoglobin Sodium Potassium Chloride Carbon Dioxide BUN Creatinine Glucose POC Glucose 123 H 112 H Calcium Ferritin Total Bilirubin Alkaline Phosphatase Lactate Dehydrogenase Total Creatine Kinase 47 L CK-MB (CK-2) Rel Index 4.6 H Troponin T 0.090 H C-Reactive Protein Total Protein Albumin Prealbumin LDL Cholesterol Direct HDL Cholesterol Arterial Blood Glucose Arterial Blood Ionized Calcium Urine WBC (Auto) 03/28/20 03/29/20 03/29/20 23:22 05:22 10:58 WBC RBC Hgb Hct MCV MCH RDW Plt Count Lymph % (Auto) [place] % (Auto) Lymph # (Auto) [place] # (Auto) Seg Neutrophils % Seg Neuts % (Manual) Lymphocytes % (Manual) Monocytes % (Manual) Basophils % (Manual) Seg Neutrophils # Seg Neutrophils # Man Lymphocytes # (Manual) Monocytes # (Manual) Eosinophils # (Manual) Basophils # (Manual) PT INR D-Dimer ABG pH POC ABG pCO2 POC ABG pO2 ABG pO2 ABG HCO3 ABG O2 Saturation ABG Base Excess ABG Hemoglobin ABG Oxyhemoglobin ABG Potassium ABG Glucose Oxyhemoglobin Carboxyhemoglobin Sodium Potassium Chloride Carbon Dioxide BUN Creatinine Glucose POC Glucose 122 H 116 H 133 H Calcium Ferritin Total Bilirubin Alkaline Phosphatase Lactate Dehydrogenase Total Creatine Kinase CK-MB (CK-2) Rel Index Troponin T C-Reactive Protein Total Protein Albumin Prealbumin LDL Cholesterol Direct HDL Cholesterol Arterial Blood Glucose Arterial Blood Ionized Calcium Urine WBC (Auto) 03/29/20 03/29/20 03/30/20 17:18 23:14 04:57 WBC RBC Hgb Hct MCV MCH RDW Plt Count Lymph % (Auto) [place] % (Auto) Lymph # (Auto) [place] # (Auto) Seg Neutrophils % Seg Neuts % (Manual) Lymphocytes % (Manual) Monocytes % (Manual) Basophils % (Manual) Seg Neutrophils # Seg Neutrophils # Man Lymphocytes # (Manual) Monocytes # (Manual) Eosinophils # (Manual) Basophils # (Manual) PT INR D-Dimer ABG pH POC ABG pCO2 POC ABG pO2 ABG pO2 ABG HCO3 ABG O2 Saturation ABG Base Excess ABG Hemoglobin ABG Oxyhemoglobin ABG Potassium ABG Glucose Oxyhemoglobin Carboxyhemoglobin Sodium Potassium Chloride Carbon Dioxide BUN Creatinine Glucose POC Glucose 111 H 114 H 130 H Calcium Ferritin Total Bilirubin Alkaline Phosphatase Lactate Dehydrogenase Total Creatine Kinase CK-MB (CK-2) Rel Index Troponin T C-Reactive Protein Total Protein Albumin Prealbumin LDL Cholesterol Direct HDL Cholesterol Arterial Blood Glucose Arterial Blood Ionized Calcium Urine WBC (Auto) 03/30/20 03/30/20 03/30/20 11:38 14:47 14:47 WBC 19.9 H RBC Hgb 10.9 L Hct 34.4 L MCV MCH 27 L RDW 16.5 H Plt Count 441 H Lymph % (Auto) 6.4 L [place] % (Auto) Lymph # (Auto) [place] # (Auto) 1.4 H Seg Neutrophils % 86.1 H Seg Neuts % (Manual) Lymphocytes % (Manual) Monocytes % (Manual) Basophils % (Manual) Seg Neutrophils # 17.1 H Seg Neutrophils # Man Lymphocytes # (Manual) Monocytes # (Manual) Eosinophils # (Manual) Basophils # (Manual) PT INR D-Dimer ABG pH POC ABG pCO2 POC ABG pO2 ABG pO2 ABG HCO3 ABG O2 Saturation ABG Base Excess ABG Hemoglobin ABG Oxyhemoglobin ABG Potassium ABG Glucose Oxyhemoglobin Carboxyhemoglobin Sodium 133 L Potassium Chloride 94.6 L Carbon Dioxide 33 H BUN Creatinine < 0.2 L Glucose 194 H POC Glucose 139 H Calcium Ferritin Total Bilirubin Alkaline Phosphatase Lactate Dehydrogenase Total Creatine Kinase CK-MB (CK-2) Rel Index Troponin T C-Reactive Protein Total Protein Albumin 2.8 L Prealbumin LDL Cholesterol Direct HDL Cholesterol Arterial Blood Glucose Arterial Blood Ionized Calcium Urine WBC (Auto) 1203/31/20 03/31/20 17:07 05:02 15:21 WBC RBC Hgb Hct MCV MCH RDW Plt Count Lymph % (Auto) [place] % (Auto) Lymph # (Auto) [place] # (Auto) Seg Neutrophils % Seg Neuts % (Manual) Lymphocytes % (Manual) Monocytes % (Manual) Basophils % (Manual) Seg Neutrophils # Seg Neutrophils # Man Lymphocytes # (Manual) Monocytes # (Manual) Eosinophils # (Manual) Basophils # (Manual) PT INR D-Dimer ABG pH POC ABG pCO2 POC ABG pO2 ABG pO2 ABG HCO3 ABG O2 Saturation ABG Base Excess ABG Hemoglobin ABG Oxyhemoglobin ABG Potassium ABG Glucose Oxyhemoglobin Carboxyhemoglobin Sodium Potassium Chloride Carbon Dioxide BUN Creatinine Glucose POC Glucose 163 H 108 H 110 H Calcium Ferritin Total Bilirubin Alkaline Phosphatase Lactate Dehydrogenase Total Creatine Kinase CK-MB (CK-2) Rel Index Troponin T C-Reactive Protein Total Protein Albumin Prealbumin LDL Cholesterol Direct HDL Cholesterol Arterial Blood Glucose Arterial Blood Ionized Calcium Urine WBC (Auto) 03/31/20 03/31/20 04/01/20 17:58 23:19 05:09 WBC RBC Hgb Hct MCV MCH RDW Plt Count Lymph % (Auto) [place] % (Auto) Lymph # (Auto) [place] # (Auto) Seg Neutrophils % Seg Neuts % (Manual) Lymphocytes % (Manual) Monocytes % (Manual) Basophils % (Manual) Seg Neutrophils # Seg Neutrophils # Man Lymphocytes # (Manual) Monocytes # (Manual) Eosinophils # (Manual) Basophils # (Manual) PT INR D-Dimer ABG pH POC ABG pCO2 POC ABG pO2 ABG pO2 ABG HCO3 ABG O2 Saturation ABG Base Excess ABG Hemoglobin ABG Oxyhemoglobin ABG Potassium ABG Glucose Oxyhemoglobin Carboxyhemoglobin Sodium Potassium Chloride Carbon Dioxide BUN Creatinine Glucose POC Glucose 110 H 131 H 124 H Calcium Ferritin Total Bilirubin Alkaline Phosphatase Lactate Dehydrogenase Total Creatine Kinase CK-MB (CK-2) Rel Index Troponin T C-Reactive Protein Total Protein Albumin Prealbumin LDL Cholesterol Direct HDL Cholesterol Arterial Blood Glucose Arterial Blood Ionized Calcium Urine WBC (Auto) 04/01/20 04/01/20 04/01/20 11:50 17:01 23:21 WBC RBC Hgb Hct MCV MCH RDW Plt Count Lymph % (Auto) [place] % (Auto) Lymph # (Auto) [place] # (Auto) Seg Neutrophils % Seg Neuts % (Manual) Lymphocytes % (Manual) Monocytes % (Manual) Basophils % (Manual) Seg Neutrophils # Seg Neutrophils # Man Lymphocytes # (Manual) Monocytes # (Manual) Eosinophils # (Manual) Basophils # (Manual) PT INR D-Dimer ABG pH POC ABG pCO2 POC ABG pO2 ABG pO2 ABG HCO3 ABG O2 Saturation ABG Base Excess ABG Hemoglobin ABG Oxyhemoglobin ABG Potassium ABG Glucose Oxyhemoglobin Carboxyhemoglobin Sodium Potassium Chloride Carbon Dioxide BUN Creatinine Glucose POC Glucose 136 H 115 H 124 H Calcium Ferritin Total Bilirubin Alkaline Phosphatase Lactate Dehydrogenase Total Creatine Kinase CK-MB (CK-2) Rel Index Troponin T C-Reactive Protein Total Protein Albumin Prealbumin LDL Cholesterol Direct HDL Cholesterol Arterial Blood Glucose Arterial Blood Ionized Calcium Urine WBC (Auto) 04/02/20 04/02/20 04/02/20 05:27 11:58 17:58 WBC RBC Hgb Hct MCV MCH RDW Plt Count Lymph % (Auto) [place] % (Auto) Lymph # (Auto) [place] # (Auto) Seg Neutrophils % Seg Neuts % (Manual) Lymphocytes % (Manual) Monocytes % (Manual) Basophils % (Manual) Seg Neutrophils # Seg Neutrophils # Man Lymphocytes # (Manual) Monocytes # (Manual) Eosinophils # (Manual) Basophils # (Manual) PT INR D-Dimer ABG pH POC ABG pCO2 POC ABG pO2 ABG pO2 ABG HCO3 ABG O2 Saturation ABG Base Excess ABG Hemoglobin ABG Oxyhemoglobin ABG Potassium ABG Glucose Oxyhemoglobin Carboxyhemoglobin Sodium Potassium Chloride Carbon Dioxide BUN Creatinine Glucose POC Glucose 117 H 133 H 122 H Calcium Ferritin Total Bilirubin Alkaline Phosphatase Lactate Dehydrogenase Total Creatine Kinase CK-MB (CK-2) Rel Index Troponin T C-Reactive Protein Total Protein Albumin Prealbumin LDL Cholesterol Direct HDL Cholesterol Arterial Blood Glucose Arterial Blood Ionized Calcium Urine WBC (Auto) 04/02/20 04/03/20 04/03/20 23:12 05:11 11:11 WBC RBC Hgb Hct MCV MCH RDW Plt Count Lymph % (Auto) [place] % (Auto) Lymph # (Auto) [place] # (Auto) Seg Neutrophils % Seg Neuts % (Manual) Lymphocytes % (Manual) Monocytes % (Manual) Basophils % (Manual) Seg Neutrophils # Seg Neutrophils # Man Lymphocytes # (Manual) Monocytes # (Manual) Eosinophils # (Manual) Basophils # (Manual) PT INR D-Dimer ABG pH POC ABG pCO2 POC ABG pO2 ABG pO2 ABG HCO3 ABG O2 Saturation ABG Base Excess ABG Hemoglobin ABG Oxyhemoglobin ABG Potassium ABG Glucose Oxyhemoglobin Carboxyhemoglobin Sodium Potassium Chloride Carbon Dioxide BUN Creatinine Glucose POC Glucose 130 H 139 H 136 H Calcium Ferritin Total Bilirubin Alkaline Phosphatase Lactate Dehydrogenase Total Creatine Kinase CK-MB (CK-2) Rel Index Troponin T C-Reactive Protein Total Protein Albumin Prealbumin LDL Cholesterol Direct HDL Cholesterol Arterial Blood Glucose Arterial Blood Ionized Calcium Urine WBC (Auto) 04/03/20 04/03/20 04/04/20 16:51 23:25 05:29 WBC RBC Hgb Hct MCV MCH RDW Plt Count Lymph % (Auto) [place] % (Auto) Lymph # (Auto) [place] # (Auto) Seg Neutrophils % Seg Neuts % (Manual) Lymphocytes % (Manual) Monocytes % (Manual) Basophils % (Manual) Seg Neutrophils # Seg Neutrophils # Man Lymphocytes # (Manual) Monocytes # (Manual) Eosinophils # (Manual) Basophils # (Manual) PT INR D-Dimer ABG pH POC ABG pCO2 POC ABG pO2 ABG pO2 ABG HCO3 ABG O2 Saturation ABG Base Excess ABG Hemoglobin ABG Oxyhemoglobin ABG Potassium ABG Glucose Oxyhemoglobin Carboxyhemoglobin Sodium Potassium Chloride Carbon Dioxide BUN Creatinine Glucose POC Glucose 118 H 111 H 126 H Calcium Ferritin Total Bilirubin Alkaline Phosphatase Lactate Dehydrogenase Total Creatine Kinase CK-MB (CK-2) Rel Index Troponin T C-Reactive Protein Total Protein Albumin Prealbumin LDL Cholesterol Direct HDL Cholesterol Arterial Blood Glucose Arterial Blood Ionized Calcium Urine WBC (Auto) 04/04/20 04/04/20 04/04/20 11:47 17:41 23:05 WBC RBC Hgb Hct MCV MCH RDW Plt Count Lymph % (Auto) [place] % (Auto) Lymph # (Auto) [place] # (Auto) Seg Neutrophils % Seg Neuts % (Manual) Lymphocytes % (Manual) Monocytes % (Manual) Basophils % (Manual) Seg Neutrophils # Seg Neutrophils # Man Lymphocytes # (Manual) Monocytes # (Manual) Eosinophils # (Manual) Basophils # (Manual) PT INR D-Dimer ABG pH POC ABG pCO2 POC ABG pO2 ABG pO2 ABG HCO3 ABG O2 Saturation ABG Base Excess ABG Hemoglobin ABG Oxyhemoglobin ABG Potassium ABG Glucose Oxyhemoglobin Carboxyhemoglobin Sodium Potassium Chloride Carbon Dioxide BUN Creatinine Glucose POC Glucose 123 H 120 H 119 H Calcium Ferritin Total Bilirubin Alkaline Phosphatase Lactate Dehydrogenase Total Creatine Kinase CK-MB (CK-2) Rel Index Troponin T C-Reactive Protein Total Protein Albumin Prealbumin LDL Cholesterol Direct HDL Cholesterol Arterial Blood Glucose Arterial Blood Ionized Calcium Urine WBC (Auto) 04/05/20 04/05/20 04/05/20 05:14 12:16 18:48 WBC RBC Hgb Hct MCV MCH RDW Plt Count Lymph % (Auto) [place] % (Auto) Lymph # (Auto) [place] # (Auto) Seg Neutrophils % Seg Neuts % (Manual) Lymphocytes % (Manual) Monocytes % (Manual) Basophils % (Manual) Seg Neutrophils # Seg Neutrophils # Man Lymphocytes # (Manual) Monocytes # (Manual) Eosinophils # (Manual) Basophils # (Manual) PT INR D-Dimer ABG pH POC ABG pCO2 POC ABG pO2 ABG pO2 ABG HCO3 ABG O2 Saturation ABG Base Excess ABG Hemoglobin ABG Oxyhemoglobin ABG Potassium ABG Glucose Oxyhemoglobin Carboxyhemoglobin Sodium Potassium Chloride Carbon Dioxide BUN Creatinine Glucose POC Glucose 123 H 148 H 106 H Calcium Ferritin Total Bilirubin Alkaline Phosphatase Lactate Dehydrogenase Total Creatine Kinase CK-MB (CK-2) Rel Index Troponin T C-Reactive Protein Total Protein Albumin Prealbumin LDL Cholesterol Direct HDL Cholesterol Arterial Blood Glucose Arterial Blood Ionized Calcium Urine WBC (Auto) 04/06/20 04/06/20 04/06/20 00:47 03:26 08:24 WBC RBC Hgb Hct MCV MCH RDW Plt Count Lymph % (Auto) [place] % (Auto) Lymph # (Auto) [place] # (Auto) Seg Neutrophils % Seg Neuts % (Manual) Lymphocytes % (Manual) Monocytes % (Manual) Basophils % (Manual) Seg Neutrophils # Seg Neutrophils # Man Lymphocytes # (Manual) Monocytes # (Manual) Eosinophils # (Manual) Basophils # (Manual) PT INR D-Dimer ABG pH POC ABG pCO2 POC ABG pO2 ABG pO2 ABG HCO3 ABG O2 Saturation ABG Base Excess ABG Hemoglobin ABG Oxyhemoglobin ABG Potassium ABG Glucose Oxyhemoglobin Carboxyhemoglobin Sodium Potassium Chloride Carbon Dioxide BUN Creatinine Glucose POC Glucose 129 H 134 H 131 H Calcium Ferritin Total Bilirubin Alkaline Phosphatase Lactate Dehydrogenase Total Creatine Kinase CK-MB (CK-2) Rel Index Troponin T C-Reactive Protein Total Protein Albumin Prealbumin LDL Cholesterol Direct HDL Cholesterol Arterial Blood Glucose Arterial Blood Ionized Calcium Urine WBC (Auto) 04/06/20 04/06/2004/06/20 11:16 16:27 23:01 WBC RBC Hgb Hct MCV MCH RDW Plt Count Lymph % (Auto) [place] % (Auto) Lymph # (Auto) [place] # (Auto) Seg Neutrophils % Seg Neuts % (Manual) Lymphocytes % (Manual) Monocytes % (Manual) Basophils % (Manual) Seg Neutrophils # Seg Neutrophils # Man Lymphocytes # (Manual) Monocytes # (Manual) Eosinophils # (Manual) Basophils # (Manual) PT INR D-Dimer ABG pH POC ABG pCO2 POC ABG pO2 ABG pO2 ABG HCO3 ABG O2 Saturation ABG Base Excess ABG Hemoglobin ABG Oxyhemoglobin ABG Potassium ABG Glucose Oxyhemoglobin Carboxyhemoglobin Sodium Potassium Chloride Carbon Dioxide BUN Creatinine Glucose POC Glucose 131 H 107 H 125 H Calcium Ferritin Total Bilirubin Alkaline Phosphatase Lactate Dehydrogenase Total Creatine Kinase CK-MB (CK-2) Rel Index Troponin T C-Reactive Protein Total Protein Albumin Prealbumin LDL Cholesterol Direct HDL Cholesterol Arterial Blood Glucose Arterial Blood Ionized Calcium Urine WBC (Auto) 04/07/20 04/07/20 04/07/20 05:24 12:41 17:40 WBC RBC Hgb Hct MCV MCH RDW Plt Count Lymph % (Auto) [place] % (Auto) Lymph # (Auto) [place] # (Auto) Seg Neutrophils % Seg Neuts % (Manual) Lymphocytes % (Manual) Monocytes % (Manual) Basophils % (Manual) Seg Neutrophils # Seg Neutrophils # Man Lymphocytes # (Manual) Monocytes # (Manual) Eosinophils # (Manual) Basophils # (Manual) PT INR D-Dimer ABG pH POC ABG pCO2 POC ABG pO2 ABG pO2 ABG HCO3 ABG O2 Saturation ABG Base Excess ABG Hemoglobin ABG Oxyhemoglobin ABG Potassium ABG Glucose Oxyhemoglobin Carboxyhemoglobin Sodium Potassium Chloride Carbon Dioxide BUN Creatinine Glucose POC Glucose 125 H 145 H 123 H Calcium Ferritin Total Bilirubin Alkaline Phosphatase Lactate Dehydrogenase Total Creatine Kinase CK-MB (CK-2) Rel Index Troponin T C-Reactive Protein Total Protein Albumin Prealbumin LDL Cholesterol Direct HDL Cholesterol Arterial Blood Glucose Arterial Blood Ionized Calcium Urine WBC (Auto) 04/07/20 04/08/20 04/08/20 23:22 05:40 11:29 WBC RBC Hgb Hct MCV MCH RDW Plt Count Lymph % (Auto) [place] % (Auto) Lymph # (Auto) [place] # (Auto) Seg Neutrophils % Seg Neuts % (Manual) Lymphocytes % (Manual) Monocytes % (Manual) Basophils % (Manual) Seg Neutrophils # Seg Neutrophils # Man Lymphocytes # (Manual) Monocytes # (Manual) Eosinophils # (Manual) Basophils # (Manual) PT INR D-Dimer ABG pH POC ABG pCO2 POC ABG pO2 ABG pO2 ABG HCO3 ABG O2 Saturation ABG Base Excess ABG Hemoglobin ABG Oxyhemoglobin ABG Potassium ABG Glucose Oxyhemoglobin Carboxyhemoglobin Sodium Potassium Chloride Carbon Dioxide BUN Creatinine Glucose POC Glucose 133 H 125 H 116 H Calcium Ferritin Total Bilirubin Alkaline Phosphatase Lactate Dehydrogenase Total Creatine Kinase CK-MB (CK-2) Rel Index Troponin T C-Reactive Protein Total Protein Albumin Prealbumin LDL Cholesterol Direct HDL Cholesterol Arterial Blood Glucose Arterial Blood Ionized Calcium Urine WBC (Auto) 04/08/20 04/09/20 04/09/20 17:43 05:47 12:22 WBC RBC Hgb Hct MCV MCH RDW Plt Count Lymph % (Auto) [place] % (Auto) Lymph # (Auto) [place] # (Auto) Seg Neutrophils % Seg Neuts % (Manual) Lymphocytes % (Manual) Monocytes % (Manual) Basophils % (Manual) Seg Neutrophils # Seg Neutrophils # Man Lymphocytes # (Manual) Monocytes # (Manual) Eosinophils # (Manual) Basophils # (Manual) PT INR D-Dimer ABG pH POC ABG pCO2 POC ABG pO2 ABG pO2 ABG HCO3 ABG O2 Saturation ABG Base Excess ABG Hemoglobin ABG Oxyhemoglobin ABG Potassium ABG Glucose Oxyhemoglobin Carboxyhemoglobin Sodium Potassium Chloride Carbon Dioxide BUN Creatinine Glucose POC Glucose 123 H 108 H 116 H Calcium Ferritin Total Bilirubin Alkaline Phosphatase Lactate Dehydrogenase Total Creatine Kinase CK-MB (CK-2) Rel Index Troponin T C-Reactive Protein Total Protein Albumin Prealbumin LDL Cholesterol Direct HDL Cholesterol Arterial Blood Glucose Arterial Blood Ionized Calcium Urine WBC (Auto) 04/09/20 04/09/20 04/10/20 17:24 23:52 06:10 WBC RBC Hgb Hct MCV MCH RDW Plt Count Lymph % (Auto) [place] % (Auto) Lymph # (Auto) [place] # (Auto) Seg Neutrophils % Seg Neuts % (Manual) Lymphocytes % (Manual) Monocytes % (Manual) Basophils % (Manual) Seg Neutrophils # Seg Neutrophils # Man Lymphocytes # (Manual) Monocytes # (Manual) Eosinophils # (Manual) Basophils # (Manual) PT INR D-Dimer ABG pH POC ABG pCO2 POC ABG pO2 ABG pO2 ABG HCO3 ABG O2 Saturation ABG Base Excess ABG Hemoglobin ABG Oxyhemoglobin ABG Potassium ABG Glucose Oxyhemoglobin Carboxyhemoglobin Sodium Potassium Chloride Carbon Dioxide BUN Creatinine Glucose POC Glucose 108 H 126 H 122 H Calcium Ferritin Total Bilirubin Alkaline Phosphatase Lactate Dehydrogenase Total Creatine Kinase CK-MB (CK-2) Rel Index Troponin T C-Reactive Protein Total Protein Albumin Prealbumin LDL Cholesterol Direct HDL Cholesterol Arterial Blood Glucose Arterial Blood Ionized Calcium Urine WBC (Auto) 04/10/20 04/10/20 04/10/20 11:27 18:11 23:24 WBC RBC Hgb Hct MCV MCH RDW Plt Count Lymph % (Auto) [place] % (Auto) Lymph # (Auto) [place] # (Auto) Seg Neutrophils % Seg Neuts % (Manual) Lymphocytes % (Manual) Monocytes % (Manual) Basophils % (Manual) Seg Neutrophils # Seg Neutrophils # Man Lymphocytes # (Manual) Monocytes # (Manual) Eosinophils # (Manual) Basophils # (Manual) PT INR D-Dimer ABG pH POC ABG pCO2 POC ABG pO2 ABG pO2 ABG HCO3 ABG O2 Saturation ABG Base Excess ABG Hemoglobin ABG Oxyhemoglobin ABG Potassium ABG Glucose Oxyhemoglobin Carboxyhemoglobin Sodium Potassium Chloride Carbon Dioxide BUN Creatinine Glucose POC Glucose 129 H 125 H 107 H Calcium Ferritin Total Bilirubin Alkaline Phosphatase Lactate Dehydrogenase Total Creatine Kinase CK-MB (CK-2) Rel Index Troponin T C-Reactive Protein Total Protein Albumin Prealbumin LDL Cholesterol Direct HDL Cholesterol Arterial Blood Glucose Arterial Blood Ionized Calcium Urine WBC (Auto) 04/11/20 04/11/20 04/11/20 05:28 11:46 23:49 WBC RBC Hgb Hct MCV MCH RDW Plt Count Lymph % (Auto) [place] % (Auto) Lymph # (Auto) [place] # (Auto) Seg Neutrophils % Seg Neuts % (Manual) Lymphocytes % (Manual) Monocytes % (Manual) Basophils % (Manual) Seg Neutrophils # Seg Neutrophils # Man Lymphocytes # (Manual) Monocytes # (Manual) Eosinophils # (Manual) Basophils # (Manual) PT INR D-Dimer ABG pH POC ABG pCO2 POC ABG pO2 ABG pO2 ABG HCO3 ABG O2 Saturation ABG Base Excess ABG Hemoglobin ABG Oxyhemoglobin ABG Potassium ABG Glucose Oxyhemoglobin Carboxyhemoglobin Sodium Potassium Chloride Carbon Dioxide BUN Creatinine Glucose POC Glucose 122 H 122 H 116 H Calcium Ferritin Total Bilirubin Alkaline Phosphatase Lactate Dehydrogenase Total Creatine Kinase CK-MB (CK-2) Rel Index Troponin T C-Reactive Protein Total Protein Albumin Prealbumin LDL Cholesterol Direct HDL Cholesterol Arterial Blood Glucose Arterial Blood Ionized Calcium Urine WBC (Auto) 04/12/20 04/12/20 04/12/20 09:07 09:07 11:39 WBC 13.1 H RBC 3.59 L Hgb 9.5 L Hct 29.8 L MCV 83 L MCH 26 L RDW 16.6 H Plt Count 591 H Lymph % (Auto) [place] % (Auto) Lymph # (Auto) [place] # (Auto) Seg Neutrophils % Seg Neuts % (Manual) 86.0 H Lymphocytes % (Manual) 7.0 L Monocytes % (Manual) Basophils % (Manual) Seg Neutrophils # Seg Neutrophils # Man 11.3 H Lymphocytes # (Manual) 0.9 L Monocytes # (Manual) Eosinophils # (Manual) Basophils # (Manual) PT INR D-Dimer ABG pH POC ABG pCO2 POC ABG pO2 ABG pO2 ABG HCO3 ABG O2 Saturation ABG Base Excess ABG Hemoglobin ABG Oxyhemoglobin ABG Potassium ABG Glucose Oxyhemoglobin Carboxyhemoglobin Sodium Potassium Chloride Carbon Dioxide 36 H BUN Creatinine < 0.2 L Glucose 132 H POC Glucose 136 H Calcium Ferritin Total Bilirubin Alkaline Phosphatase Lactate Dehydrogenase Total Creatine Kinase CK-MB (CK-2) Rel Index Troponin T C-Reactive Protein Total Protein Albumin 2.7 L Prealbumin LDL Cholesterol Direct HDL Cholesterol Arterial Blood Glucose Arterial Blood Ionized Calcium Urine WBC (Auto) 04/12/20 04/12/20 04/13/20 18:13 23:07 05:45 WBC RBC Hgb Hct MCV MCH RDW Plt Count Lymph % (Auto) [place] % (Auto) Lymph # (Auto) [place] # (Auto) Seg Neutrophils % Seg Neuts % (Manual) Lymphocytes % (Manual) Monocytes % (Manual) Basophils % (Manual) Seg Neutrophils # Seg Neutrophils # Man Lymphocytes # (Manual) Monocytes # (Manual) Eosinophils # (Manual) Basophils # (Manual) PT INR D-Dimer ABG pH POC ABG pCO2 POC ABG pO2 ABG pO2 ABG HCO3 ABG O2 Saturation ABG Base Excess ABG Hemoglobin ABG Oxyhemoglobin ABG Potassium ABG Glucose Oxyhemoglobin Carboxyhemoglobin Sodium Potassium Chloride Carbon Dioxide BUN Creatinine Glucose POC Glucose 107 H 106 H 125 H Calcium Ferritin Total Bilirubin Alkaline Phosphatase Lactate Dehydrogenase Total Creatine Kinase CK-MB (CK-2) Rel Index Troponin T C-Reactive Protein Total Protein Albumin Prealbumin LDL Cholesterol Direct HDL Cholesterol Arterial Blood Glucose Arterial Blood Ionized Calcium Urine WBC (Auto) 04/13/20 04/13/20 04/13/20 11:18 17:56 23:33 WBC RBC Hgb Hct MCV MCH RDW Plt Count Lymph % (Auto) [place] % (Auto) Lymph # (Auto) [place] # (Auto) Seg Neutrophils % Seg Neuts % (Manual) Lymphocytes % (Manual) Monocytes % (Manual) Basophils % (Manual) Seg Neutrophils # Seg Neutrophils # Man Lymphocytes # (Manual) Monocytes # (Manual) Eosinophils # (Manual) Basophils # (Manual) PT INR D-Dimer ABG pH POC ABG pCO2 POC ABG pO2 ABG pO2 ABG HCO3 ABG O2 Saturation ABG Base Excess ABG Hemoglobin ABG Oxyhemoglobin ABG Potassium ABG Glucose Oxyhemoglobin Carboxyhemoglobin Sodium Potassium Chloride Carbon Dioxide BUN Creatinine Glucose POC Glucose 133 H 110 H 114 H Calcium Ferritin Total Bilirubin Alkaline Phosphatase Lactate Dehydrogenase Total Creatine Kinase CK-MB (CK-2) Rel Index Troponin T C-Reactive Protein Total Protein Albumin Prealbumin LDL Cholesterol Direct HDL Cholesterol Arterial Blood Glucose Arterial Blood Ionized Calcium Urine WBC (Auto) 04/14/20 04/14/20 04/14/20 05:58 11:45 17:48 WBC RBC Hgb Hct MCV MCH RDW Plt Count Lymph % (Auto) [place] % (Auto) Lymph # (Auto) [place] # (Auto) Seg Neutrophils % Seg Neuts % (Manual) Lymphocytes % (Manual) Monocytes % (Manual) Basophils % (Manual) Seg Neutrophils # Seg Neutrophils # Man Lymphocytes # (Manual) Monocytes # (Manual) Eosinophils # (Manual) Basophils # (Manual) PT INR D-Dimer ABG pH POC ABG pCO2 POC ABG pO2 ABG pO2 ABG HCO3 ABG O2 Saturation ABG Base Excess ABG Hemoglobin ABG Oxyhemoglobin ABG Potassium ABG Glucose Oxyhemoglobin Carboxyhemoglobin Sodium Potassium Chloride Carbon Dioxide BUN Creatinine Glucose POC Glucose 115 H 122 H 124 H Calcium Ferritin Total Bilirubin Alkaline Phosphatase Lactate Dehydrogenase Total Creatine Kinase CK-MB (CK-2) Rel Index Troponin T C-Reactive Protein Total Protein Albumin Prealbumin LDL Cholesterol Direct HDL Cholesterol Arterial Blood Glucose Arterial Blood Ionized Calcium Urine WBC (Auto) 04/15/20 04/15/20 04/15/20 00:11 05:38 11:31 WBC RBC Hgb Hct MCV MCH RDW Plt Count Lymph % (Auto) [place] % (Auto) Lymph # (Auto) [place] # (Auto) Seg Neutrophils % Seg Neuts % (Manual) Lymphocytes % (Manual) Monocytes % (Manual) Basophils % (Manual) Seg Neutrophils # Seg Neutrophils # Man Lymphocytes # (Manual) Monocytes # (Manual) Eosinophils # (Manual) Basophils # (Manual) PT INR D-Dimer ABG pH POC ABG pCO2 POC ABG pO2 ABG pO2 ABG HCO3 ABG O2 Saturation ABG Base Excess ABG Hemoglobin ABG Oxyhemoglobin ABG Potassium ABG Glucose Oxyhemoglobin Carboxyhemoglobin Sodium Potassium Chloride Carbon Dioxide BUN Creatinine Glucose POC Glucose 120 H 109 H 123 H Calcium Ferritin Total Bilirubin Alkaline Phosphatase Lactate Dehydrogenase Total Creatine Kinase CK-MB (CK-2) Rel Index Troponin T C-Reactive Protein Total Protein Albumin Prealbumin LDL Cholesterol Direct HDL Cholesterol Arterial Blood Glucose Arterial Blood Ionized Calcium Urine WBC (Auto) 04/15/20 04/16/20 04/16/20 17:35 06:00 11:29 WBC RBC Hgb Hct MCV MCH RDW Plt Count Lymph % (Auto) [place] % (Auto) Lymph # (Auto) [place] # (Auto) Seg Neutrophils % Seg Neuts % (Manual) Lymphocytes % (Manual) Monocytes % (Manual) Basophils % (Manual) Seg Neutrophils # Seg Neutrophils # Man Lymphocytes # (Manual) Monocytes # (Manual) Eosinophils # (Manual) Basophils # (Manual) PT INR D-Dimer ABG pH POC ABG pCO2 POC ABG pO2 ABG pO2 ABG HCO3 ABG O2 Saturation ABG Base Excess ABG Hemoglobin ABG Oxyhemoglobin ABG Potassium ABG Glucose Oxyhemoglobin Carboxyhemoglobin Sodium Potassium Chloride Carbon Dioxide BUN Creatinine Glucose POC Glucose 111 H 142 H 108 H Calcium Ferritin Total Bilirubin Alkaline Phosphatase Lactate Dehydrogenase Total Creatine Kinase CK-MB (CK-2) Rel Index Troponin T C-Reactive Protein Total Protein Albumin Prealbumin LDL Cholesterol Direct HDL Cholesterol Arterial Blood Glucose Arterial Blood Ionized Calcium Urine WBC (Auto) 04/17/20 04/17/20 04/17/20 05:09 06:53 06:53 WBC 14.2 H RBC Hgb 10.1 L Hct 31.5 L MCV MCH 27 L RDW 17.2 H Plt Count 643 H Lymph % (Auto) [place] % (Auto) Lymph # (Auto) [place] # (Auto) Seg Neutrophils % Seg Neuts % (Manual) Lymphocytes % (Manual) Monocytes % (Manual) Basophils % (Manual) Seg Neutrophils # Seg Neutrophils # Man Lymphocytes # (Manual) Monocytes # (Manual) Eosinophils # (Manual) Basophils # (Manual) PT INR D-Dimer ABG pH POC ABG pCO2 POC ABG pO2 ABG pO2 ABG HCO3 ABG O2 Saturation ABG Base Excess ABG Hemoglobin ABG Oxyhemoglobin ABG Potassium ABG Glucose Oxyhemoglobin Carboxyhemoglobin Sodium Potassium Chloride 97.7 L Carbon Dioxide 38 H BUN Creatinine < 0.2 L Glucose 126 H POC Glucose 131 H Calcium Ferritin Total Bilirubin Alkaline Phosphatase Lactate Dehydrogenase Total Creatine Kinase CK-MB (CK-2) Rel Index Troponin T C-Reactive Protein Total Protein Albumin Prealbumin LDL Cholesterol Direct HDL Cholesterol Arterial Blood Glucose Arterial Blood Ionized Calcium Urine WBC (Auto) 04/17/20 04/18/20 04/18/20 11:21 00:23 04:01 WBC 15.3 H RBC Hgb 10.1 L Hct 31.9 L MCV 82 L MCH 26 L RDW 17.2 H Plt Count 665 H Lymph % (Auto) 12.9 L [place] % (Auto) Lymph # (Auto) [place] # (Auto) 1.1 H Seg Neutrophils % 78.0 H Seg Neuts % (Manual) Lymphocytes % (Manual) Monocytes % (Manual) Basophils % (Manual) Seg Neutrophils # 11.9 H Seg Neutrophils # Man Lymphocytes # (Manual) Monocytes # (Manual) Eosinophils # (Manual) Basophils # (Manual) PT INR D-Dimer ABG pH POC ABG pCO2 POC ABG pO2 ABG pO2 ABG HCO3 ABG O2 Saturation ABG Base Excess ABG Hemoglobin ABG Oxyhemoglobin ABG Potassium ABG Glucose Oxyhemoglobin Carboxyhemoglobin Sodium Potassium Chloride Carbon Dioxide BUN Creatinine Glucose POC Glucose 140 H 125 H Calcium Ferritin Total Bilirubin Alkaline Phosphatase Lactate Dehydrogenase Total Creatine Kinase CK-MB (CK-2) Rel Index Troponin T C-Reactive Protein Total Protein Albumin Prealbumin LDL Cholesterol Direct HDL Cholesterol Arterial Blood Glucose Arterial Blood Ionized Calcium Urine WBC (Auto) 04/18/20 04/18/20 04/18/20 04:01 11:29 17:30 WBC RBC Hgb Hct MCV MCH RDW Plt Count Lymph % (Auto) [place] % (Auto) Lymph # (Auto) [place] # (Auto) Seg Neutrophils % Seg Neuts % (Manual) Lymphocytes % (Manual) Monocytes % (Manual) Basophils % (Manual) Seg Neutrophils # Seg Neutrophils # Man Lymphocytes # (Manual) Monocytes # (Manual) Eosinophils # (Manual) Basophils # (Manual) PT INR D-Dimer ABG pH POC ABG pCO2 POC ABG pO2 ABG pO2 ABG HCO3 ABG O2 Saturation ABG Base Excess ABG Hemoglobin ABG Oxyhemoglobin ABG Potassium ABG Glucose Oxyhemoglobin Carboxyhemoglobin Sodium Potassium Chloride 97.0 L Carbon Dioxide 38 H BUN Creatinine < 0.2 L Glucose 117 H POC Glucose 136 H 107 H Calcium Ferritin Total Bilirubin Alkaline Phosphatase Lactate Dehydrogenase Total Creatine Kinase CK-MB (CK-2) Rel Index Troponin T C-Reactive Protein Total Protein Albumin Prealbumin LDL Cholesterol Direct HDL Cholesterol Arterial Blood Glucose Arterial Blood Ionized Calcium Urine WBC (Auto) 04/18/20 04/19/20 04/19/20 23:19 06:51 06:51 WBC 12.2 H RBC Hgb 9.8 L Hct 31.1 L MCV 82 L MCH 26 L RDW 17.2 H Plt Count 549 H Lymph % (Auto) 6.5 L [place] % (Auto) Lymph # (Auto) 0.8 L [place] # (Auto) Seg Neutrophils % 86.7 H Seg Neuts % (Manual) Lymphocytes % (Manual) Monocytes % (Manual) Basophils % (Manual) Seg Neutrophils # 10.6 H Seg Neutrophils # Man Lymphocytes # (Manual) Monocytes # (Manual) Eosinophils # (Manual) Basophils # (Manual) PT INR D-Dimer ABG pH POC ABG pCO2 POC ABG pO2 ABG pO2 ABG HCO3 ABG O2 Saturation ABG Base Excess ABG Hemoglobin ABG Oxyhemoglobin ABG Potassium ABG Glucose Oxyhemoglobin Carboxyhemoglobin Sodium Potassium Chloride 97.8 L Carbon Dioxide 38 H BUN Creatinine < 0.2 L Glucose 123 H POC Glucose 127 H Calcium Ferritin Total Bilirubin Alkaline Phosphatase Lactate Dehydrogenase Total Creatine Kinase CK-MB (CK-2) Rel Index Troponin T C-Reactive Protein Total Protein Albumin Prealbumin LDL Cholesterol Direct HDL Cholesterol Arterial Blood Glucose Arterial Blood Ionized Calcium Urine WBC (Auto) 04/19/20 04/19/20 04/20/20 13:41 18:33 05:56 WBC RBC Hgb Hct MCV MCH RDW Plt Count Lymph % (Auto) [place] % (Auto) Lymph # (Auto) [place] # (Auto) Seg Neutrophils % Seg Neuts % (Manual) Lymphocytes % (Manual) Monocytes % (Manual) Basophils % (Manual) Seg Neutrophils # Seg Neutrophils # Man Lymphocytes # (Manual) Monocytes # (Manual) Eosinophils # (Manual) Basophils # (Manual) PT INR D-Dimer ABG pH POC ABG pCO2 POC ABG pO2 ABG pO2 ABG HCO3 ABG O2 Saturation ABG Base Excess ABG Hemoglobin ABG Oxyhemoglobin ABG Potassium ABG Glucose Oxyhemoglobin Carboxyhemoglobin Sodium Potassium Chloride Carbon Dioxide BUN Creatinine Glucose POC Glucose 116 H 124 H 130 H Calcium Ferritin Total Bilirubin Alkaline Phosphatase Lactate Dehydrogenase Total Creatine Kinase CK-MB (CK-2) Rel Index Troponin T C-Reactive Protein Total Protein Albumin Prealbumin LDL Cholesterol Direct HDL Cholesterol Arterial Blood Glucose Arterial Blood Ionized Calcium Urine WBC (Auto) 04/20/20 04/20/20 04/20/20 06:28 06:28 11:46 WBC RBC Hgb 10.2 L Hct 31.5 L MCV 82 L MCH 27 L RDW 17.1 H Plt Count 546 H Lymph % (Auto) 10.0 L [place] % (Auto) 9.8 H Lymph # (Auto) 1.1 L [place] # (Auto) 1.1 H Seg Neutrophils % 78.4 H Seg Neuts % (Manual) Lymphocytes % (Manual) Monocytes % (Manual) Basophils % (Manual) Seg Neutrophils # 8.5 H Seg Neutrophils # Man Lymphocytes # (Manual) Monocytes # (Manual) Eosinophils # (Manual) Basophils # (Manual) PT INR D-Dimer ABG pH POC ABG pCO2 POC ABG pO2 ABG pO2 ABG HCO3 ABG O2 Saturation ABG Base Excess ABG Hemoglobin ABG Oxyhemoglobin ABG Potassium ABG Glucose Oxyhemoglobin Carboxyhemoglobin Sodium Potassium Chloride 97.0 L Carbon Dioxide 38 H BUN Creatinine < 0.2 L Glucose 138 H POC Glucose 130 H Calcium Ferritin Total Bilirubin Alkaline Phosphatase Lactate Dehydrogenase Total Creatine Kinase CK-MB (CK-2) Rel Index Troponin T C-Reactive Protein Total Protein Albumin Prealbumin LDL Cholesterol Direct HDL Cholesterol Arterial Blood Glucose Arterial Blood Ionized Calcium Urine WBC (Auto) 04/20/20 04/21/20 04/21/20 23:31 05:55 05:55 WBC RBC Hgb 10.0 L Hct 31.1 L MCV 82 L MCH 26 L RDW 17.0 H Plt Count 535 H Lymph % (Auto) [place] % (Auto) 9.2 H Lymph # (Auto) 1.1 L [place] # (Auto) Seg Neutrophils % 75.4 H Seg Neuts % (Manual) Lymphocytes % (Manual) Monocytes % (Manual) Basophils % (Manual) Seg Neutrophils # Seg Neutrophils # Man Lymphocytes # (Manual) Monocytes # (Manual) Eosinophils # (Manual) Basophils # (Manual) PT INR D-Dimer ABG pH POC ABG pCO2 POC ABG pO2 ABG pO2 ABG HCO3 ABG O2 Saturation ABG Base Excess ABG Hemoglobin ABG Oxyhemoglobin ABG Potassium ABG Glucose Oxyhemoglobin Carboxyhemoglobin Sodium Potassium Chloride 95.0 L Carbon Dioxide 34 H BUN Creatinine < 0.2 L Glucose 125 H POC Glucose 116 H Calcium Ferritin Total Bilirubin Alkaline Phosphatase Lactate Dehydrogenase Total Creatine Kinase CK-MB (CK-2) Rel Index Troponin T C-Reactive Protein Total Protein Albumin Prealbumin LDL Cholesterol Direct HDL Cholesterol Arterial Blood Glucose Arterial Blood Ionized Calcium Urine WBC (Auto) 04/22/20 04/22/20 04/22/20 00:01 07:45 07:45 WBC RBC Hgb 10.0 L Hct 30.7 L MCV 81 L MCH 27 L RDW 17.1 H Plt Count 490 H Lymph % (Auto) [place] % (Auto) Lymph # (Auto) [place] # (Auto) Seg Neutrophils % Seg Neuts % (Manual) 75.0 H Lymphocytes % (Manual) 11.0 L Monocytes % (Manual) 9.0 H Basophils % (Manual) Seg Neutrophils # Seg Neutrophils # Man Lymphocytes # (Manual) 0.8 L Monocytes # (Manual) Eosinophils # (Manual) Basophils # (Manual) PT INR D-Dimer ABG pH POC ABG pCO2 POC ABG pO2 ABG pO2 ABG HCO3 ABG O2 Saturation ABG Base Excess ABG Hemoglobin ABG Oxyhemoglobin ABG Potassium ABG Glucose Oxyhemoglobin Carboxyhemoglobin Sodium Potassium Chloride 96.3 L Carbon Dioxide 40 H BUN Creatinine < 0.2 L Glucose 109 H POC Glucose 110 H Calcium Ferritin Total Bilirubin Alkaline Phosphatase Lactate Dehydrogenase Total Creatine Kinase CK-MB (CK-2) Rel Index Troponin T C-Reactive Protein Total Protein Albumin Prealbumin LDL Cholesterol Direct HDL Cholesterol Arterial Blood Glucose Arterial Blood Ionized Calcium Urine WBC (Auto) 04/23/20 04/23/20 04/23/20 04:28 04:28 04:28 WBC RBC 3.64 L Hgb 9.7 L Hct 29.4 L MCV 81 L MCH 27 L RDW 17.2 H Plt Count 527 H Lymph % (Auto) [place] % (Auto) 8.9 H Lymph # (Auto) [place] # (Auto) Seg Neutrophils % Seg Neuts % (Manual) Lymphocytes % (Manual) Monocytes % (Manual) Basophils % (Manual) Seg Neutrophils # Seg Neutrophils # Man Lymphocytes # (Manual) Monocytes # (Manual) Eosinophils # (Manual) Basophils # (Manual) PT INR D-Dimer ABG pH POC ABG pCO2 POC ABG pO2 ABG pO2 ABG HCO3 ABG O2 Saturation ABG Base Excess ABG Hemoglobin ABG Oxyhemoglobin ABG Potassium ABG Glucose Oxyhemoglobin Carboxyhemoglobin Sodium Potassium Chloride 96.4 L Carbon Dioxide 32 H D BUN Creatinine < 0.2 L Glucose 134 H POC Glucose Calcium Ferritin Total Bilirubin Alkaline Phosphatase Lactate Dehydrogenase Total Creatine Kinase CK-MB (CK-2) Rel Index Troponin T 0.151 H* C-Reactive Protein Total Protein Albumin Prealbumin LDL Cholesterol Direct HDL Cholesterol 29 L Arterial Blood Glucose Arterial Blood Ionized Calcium Urine WBC (Auto) 04/23/20 04/23/20 04/24/20 06:03 23:41 05:28 WBC RBC 3.56 L Hgb 9.5 L Hct 28.9 L MCV 81 L MCH 27 L RDW 17.4 H Plt Count 462 H Lymph % (Auto) [place] % (Auto) Lymph # (Auto) [place] # (Auto) Seg Neutrophils % Seg Neuts % (Manual) 80.0 H Lymphocytes % (Manual) Monocytes % (Manual) Basophils % (Manual) Seg Neutrophils # Seg Neutrophils # Man Lymphocytes # (Manual) Monocytes # (Manual) Eosinophils # (Manual) Basophils # (Manual) PT INR D-Dimer ABG pH POC ABG pCO2 POC ABG pO2 ABG pO2 ABG HCO3 ABG O2 Saturation ABG Base Excess ABG Hemoglobin ABG Oxyhemoglobin ABG Potassium ABG Glucose Oxyhemoglobin Carboxyhemoglobin Sodium Potassium Chloride Carbon Dioxide BUN Creatinine Glucose POC Glucose 132 H 117 H Calcium Ferritin Total Bilirubin Alkaline Phosphatase Lactate Dehydrogenase Total Creatine Kinase CK-MB (CK-2) Rel Index Troponin T C-Reactive Protein Total Protein Albumin Prealbumin LDL Cholesterol Direct HDL Cholesterol Arterial Blood Glucose Arterial Blood Ionized Calcium Urine WBC (Auto) 04/24/20 04/24/20 04/24/20 05:28 05:28 05:33 WBC RBC Hgb Hct MCV MCH RDW Plt Count Lymph % (Auto) [place] % (Auto) Lymph # (Auto) [place] # (Auto) Seg Neutrophils % Seg Neuts % (Manual) Lymphocytes % (Manual) Monocytes % (Manual) Basophils % (Manual) Seg Neutrophils # Seg Neutrophils # Man Lymphocytes # (Manual) Monocytes # (Manual) Eosinophils # (Manual) Basophils # (Manual) PT INR D-Dimer ABG pH POC ABG pCO2 POC ABG pO2 ABG pO2 ABG HCO3 ABG O2 Saturation ABG Base Excess ABG Hemoglobin ABG Oxyhemoglobin ABG Potassium ABG Glucose Oxyhemoglobin Carboxyhemoglobin Sodium Potassium Chloride 96.1 L Carbon Dioxide 40 H D BUN Creatinine < 0.2 L Glucose 115 H POC Glucose 109 H Calcium Ferritin Total Bilirubin Alkaline Phosphatase Lactate Dehydrogenase Total Creatine Kinase CK-MB (CK-2) Rel Index Troponin T 0.181 H* C-Reactive Protein Total Protein Albumin Prealbumin LDL Cholesterol Direct HDL Cholesterol Arterial Blood Glucose Arterial Blood Ionized Calcium Urine WBC (Auto) 04/24/20 04/24/20 04/25/20 11:17 18:23 00:12 WBC RBC Hgb Hct MCV MCH RDW Plt Count Lymph % (Auto) [place] % (Auto) Lymph # (Auto) [place] # (Auto) Seg Neutrophils % Seg Neuts % (Manual) Lymphocytes % (Manual) Monocytes % (Manual) Basophils % (Manual) Seg Neutrophils # Seg Neutrophils # Man Lymphocytes # (Manual) Monocytes # (Manual) Eosinophils # (Manual) Basophils # (Manual) PT INR D-Dimer ABG pH POC ABG pCO2 POC ABG pO2 ABG pO2 ABG HCO3 ABG O2 Saturation ABG Base Excess ABG Hemoglobin ABG Oxyhemoglobin ABG Potassium ABG Glucose Oxyhemoglobin Carboxyhemoglobin Sodium Potassium Chloride Carbon Dioxide BUN Creatinine Glucose POC Glucose 117 H 109 H 113 H Calcium Ferritin Total Bilirubin Alkaline Phosphatase Lactate Dehydrogenase Total Creatine Kinase CK-MB (CK-2) Rel Index Troponin T C-Reactive Protein Total Protein Albumin Prealbumin LDL Cholesterol Direct HDL Cholesterol Arterial Blood Glucose Arterial Blood Ionized Calcium Urine WBC (Auto) 04/25/20 04/25/20 04/25/20 06:34 06:34 11:28 WBC 11.7 H RBC Hgb 10.0 L Hct 31.7 L MCV 82 L MCH 26 L RDW 17.5 H Plt Count 564 H Lymph % (Auto) [place] % (Auto) Lymph # (Auto) [place] # (Auto) Seg Neutrophils % Seg Neuts % (Manual) 78.0 H Lymphocytes % (Manual) 10.0 L Monocytes % (Manual) 9.0 H Basophils % (Manual) Seg Neutrophils # Seg Neutrophils # Man 9.1 H Lymphocytes # (Manual) Monocytes # (Manual) 1.1 H Eosinophils # (Manual) Basophils # (Manual) PT INR D-Dimer ABG pH POC ABG pCO2 POC ABG pO2 ABG pO2 ABG HCO3 ABG O2 Saturation ABG Base Excess ABG Hemoglobin ABG Oxyhemoglobin ABG Potassium ABG Glucose Oxyhemoglobin Carboxyhemoglobin Sodium Potassium Chloride Carbon Dioxide 39 H BUN Creatinine < 0.2 L Glucose 103 H POC Glucose 112 H Calcium Ferritin Total Bilirubin Alkaline Phosphatase Lactate Dehydrogenase Total Creatine Kinase CK-MB (CK-2) Rel Index Troponin T C-Reactive Protein Total Protein Albumin Prealbumin LDL Cholesterol Direct HDL Cholesterol Arterial Blood Glucose Arterial Blood Ionized Calcium Urine WBC (Auto) Allied health notes reviewed: nursing
[2020-04-25] MEDS: traMADol 50 MG TAB PO PRN (19:51)
[2020-04-25] MEDS: ZOLPIDEM 5 MG TAB PO PRN (21:29)
[2020-04-25] MEDS: MAGNESIUM HYDROXIDE (MOM) ORAL LIQD UDC PO PRN (21:29)
[2020-04-25] MEDS: ENOXAPARIN 40 MG/0.4 ML INJ SUB-Q SCH (21:29)
[2020-04-25] MEDS: SENNOSIDES 8.6 MG TAB PO SCH (21:30)
[2020-04-26] MEDS: ALPRAZolam 0.5 MG TAB PO PRN ×2 (03:12→16:56)
[2020-04-26] MEDS: traMADol 50 MG TAB PO PRN ×2 (03:12→16:56)
[2020-04-26] MEDS: MORPHINE 2 MG/1 ML INJ IV PRN ×3 (04:35→20:10)
[2020-04-26] MEDS: GLYCOPYRROLATE 1 MG TAB PO SCH ×3 (08:15→20:04)
[2020-04-26] MEDS: MAGIC MOUTHWASH 30ML PO SCH ×3 (08:15→20:04)
[2020-04-26] MEDS: DOCUSATE SODIUM 100 MG/10 ML ORAL LIQD FEEDTUBE SCH ×2 (09:22→22:31)
[2020-04-26] MEDS: BACLOFEN 10 MG TAB PO SCH ×2 (09:22→22:32)
[2020-04-26] MEDS: LIDOCAINE 5% 1 EACH PATCH TD SCH (09:23)
[2020-04-26] MEDS: SCOPOLAMINE TRANSDERMAL PATCH 72 HR TD SCH (09:23)
[2020-04-26] MEDS: METOPROLOL TARTRATE 25 MG TAB PO SCH ×2 (09:23→22:33)
[2020-04-26] MEDS: PREGABALIN 75 MG CAP PO SCH ×2 (09:23→22:33)
[2020-04-26] MEDS: TAMSULOSIN 0.4 MG CAP PO SCH (09:23)
[2020-04-26] MEDS: LANSOPRAZOLE 30 MG SOLUTAB FEEDTUBE SCH (09:23)
[2020-04-26] MEDS: SODIUM HYPOCHLORITE, DAKIN'S 1/2 STRENGTH (0.25%) 473 ML TOPICAL SOLN TP SCH ×2 (09:24→22:31)
--- NOTE | 2020-04-26 13:54 | Progress Note ---
Assessment and Plan Patient awake. patient undergoing spontaneous breathing trial. Patient is pressure support 10, FIO2 30%, PEEP 6 and O2 saturation running 99%. Recommend Continue spontaneous breathing trials as tolerated. Respiratory therapy told me, Patient Not tolearing T tube trials at this time Patient afebrile and has leukocytosis. Chest xray done 04/15/20 reported mild basilar airspace opacities which likely represent atelectasis but could represent an evolving pneumonia. If patient running fever, recommend to place hin on antibiotics like zosyn. - Patient Problems (1) Acute on chronic respiratory failure with hypoxia and hypercapnia Current Visit: Yes Status: Acute Plan to address problem: Patient is on pressure support ventilation, pressure support 10, FIO2 30%, PEEP 6. Albuterol inhaler 2 puffs po qid. Continue S/C Lovenox. Continue prevacid. Recommend to continue spontaneous breathing trials. (2) Bleeding from wound Current Visit: Yes Status: Acute Plan to address problem: Management primary care , surgery and wound care. (3) Elevated d-dimer Current Visit: Yes Status: Acute Plan to address problem: Patients venous doppler studies of legs, CTA chest reported Negative for VTE. Patient is on S/C Lovenox 40 mg qd. (4) Elevated troponin Current Visit: Yes Status: Acute Plan to address problem: Management as per primary care and cardiology (5) NSTEMI (non-ST elevated myocardial infarction) Current Visit: Yes Status: Acute Plan to address problem: Management as per cardiology. (6) Pneumonia Current Visit: Yes Status: Acute Qualifiers: Laterality: bilateral Plan to address problem: Patient was treated with ceftriaxone, zosyn and zithromax. Patient afebrile to day. Has leukocytosis. Chest xray done 04/15/20 reported mild basilar airspace opacities which likely represent atelectasis but could represent an evolving pneumonia. If patient running fever, recommend to place him back on antibiotics like zosyn. Subjective Date of service: 04/26/20 Principal diagnosis: Ac on Ch Hypercapnic & hypoxemic Resp Failure; Severe Sepsis; Jamar PNA; ALS Interval history: Patient awake. patient undergoing spontaneous breathing trial. Patient is pressure support 10, FIO2 30%, PEEP 6 and O2 saturation running 99%. Recommend Continue spontaneous breathing trials as tolerated.Respiratory therapy told me, Patient Not tolearing T tube trials at this time.Patient afebrile and has leukocytosis. Chest xray done 04/15/20 reported mild basilar airspace opacities which likely represent atelectasis but could represent an evolving pneumonia. If patient running fever, recommend to place hin on antibiotics like zosyn. Objective Vital Signs - 12hr 04/26/20 04/26/20 04/26/20 02:00 03:00 03:12 Temperature Pulse Rate 103 H 109 H Pulse Rate [ From Monitor] Respiratory 12 16 20 Rate Blood Pressure 102/65 107/67 O2 Sat by Pulse 100 100 Oximetry O2 Sat by Pulse Oximetry [ Assessment] 04/26/20 04/26/20 04/26/20 04:00 04:12 04:27 Temperature 98.3 F Pulse Rate 110 H 107 H Pulse Rate [ From Monitor] Respiratory 11 L 20 Rate Blood Pressure 107/67 O2 Sat by Pulse 97 Oximetry O2 Sat by Pulse Oximetry [ Assessment] 04/26/20 04/26/20 04/26/20 04:35 05:00 05:05 Temperature Pulse Rate 101 H Pulse Rate [ From Monitor] Respiratory 20 13 20 Rate Blood Pressure 99/71 O2 Sat by Pulse 94 Oximetry O2 Sat by Pulse Oximetry [ Assessment] 04/26/20 04/26/20 04/26/20 05:31 05:38 06:00 Temperature Pulse Rate 101 H 95 H Pulse Rate [ From Monitor] Respiratory 15 Rate Blood Pressure 99/71 103/71 O2 Sat by Pulse 99 99 Oximetry O2 Sat by Pulse 99 Oximetry [ Assessment] 04/26/20 04/26/20 04/26/20 07:00 08:00 08:22 Temperature 98.0 F Pulse Rate 97 H 102 H 106 H Pulse Rate [ 103 H From Monitor] Respiratory 17 17 11 L Rate Blood Pressure 96/68 104/67 104/67 O2 Sat by Pulse 97 97 94 Oximetry O2 Sat by Pulse Oximetry [ Assessment] 04/26/20 04/26/20 04/26/20 09:00 09:23 10:00 Temperature Pulse Rate 103 H 106 H 100 H Pulse Rate [ From Monitor] Respiratory 15 20 Rate Blood Pressure 102/72 102/72 90/64 O2 Sat by Pulse 94 98 Oximetry O2 Sat by Pulse Oximetry [ Assessment] 04/26/20 04/26/20 04/26/20 11:00 12:14 12:22 Temperature Pulse Rate 89 97 H Pulse Rate [ From Monitor] Respiratory 22 14 Rate Blood Pressure 91/64 89/66 O2 Sat by Pulse 99 98 Oximetry O2 Sat by Pulse 98 Oximetry [ Assessment] Constitutional: no acute distress, alert, other (thin middle aged male with nor mal respiratory effort at rest on MVS) Eyes: non-icteric ENT: oropharynx moist, other (S/P Tracheostomy) Neck: supple, no lymphadenopathy, no JVD Effort: mildly labored Ascultation: Bilateral: diminished breath sounds, wheezes, rhonchi Percussion: Bilateral: not dull Cardiovascular: regular rate and rhythm, other (S1,S2, no murmurs) Gastrointestinal: normoactive bowel sounds, soft, non-tender, non-distended, other (+ distended but non tender suprapubis) Integumentary: normal, decubitus ulcer (sacral / gluteal) Extremities: no cyanosis, no edema, pulses normal, other (atrophic looking limbs) Neurologic: pupils equal and round, other (motor strength in extremities 1-2/5, awake, alert, mouths words to make needs known) Psychiatric: mood appropriate, affect normal CBC and BMP: 04/25/20 06:34 04/25/20 06:34 ABG, PT/INR, D-dimer: ABG ABG pH 7.371 (7.320-7.450) 03/08/20 12:34 POC ABG pCO2 63.1 mmHg (32.0-48.0) H 03/08/20 12:34 ABG pCO2 60.1 mm Hg 03/06/20 04:34 POC ABG pO2 90.5 mmHg (83-108) 03/08/20 12:34 ABG pO2 88.6 mm Hg (80.0-90.0) 03/06/20 04:34 POC ABG HCO3 35.7 03/08/20 12:34 ABG O2 Saturation 97.0 % (95.0-99.0) 03/06/20 04:34 PT/INR, D-dimer PT 15.6 Sec. (12.2-14.9) H 02/24/20 09:19 INR 1.21 (0.87-1.13) H 02/24/20 09:19 D-Dimer 1311.96 ng/mlDDU (0-234) H 02/24/20 09:19 Abnormal lab findings: Abnormal Labs 02/24/20 02/24/20 02/24/20 09:19 09:19 09:19 WBC 20.2 H RBC 5.05 H Hgb Hct MCV MCH RDW 15.3 H Plt Count Lymph % (Auto) Antelope % (Auto) Lymph # (Auto) Antelope # (Auto) Seg Neutrophils % Seg Neuts % (Manual) 86.0 H Lymphocytes % (Manual) 1.0 L Monocytes % (Manual) Basophils % (Manual) Seg Neutrophils # Seg Neutrophils # Man 17.4 H Lymphocytes # (Manual) 0.2 L Monocytes # (Manual) Eosinophils # (Manual) Basophils # (Manual) PT 15.6 H INR 1.21 H D-Dimer 1311.96 H ABG pH POC ABG pCO2 POC ABG pO2 ABG pO2 ABG HCO3 ABG O2 Saturation ABG Base Excess ABG Hemoglobin ABG Oxyhemoglobin ABG Potassium ABG Glucose Oxyhemoglobin Carboxyhemoglobin Sodium 135 L Potassium 3.2 L Chloride 92.2 L Carbon Dioxide BUN 6 L Creatinine < 0.2 L Glucose 124 H POC Glucose Calcium Ferritin Total Bilirubin 2.30 H Alkaline Phosphatase 132 H Lactate Dehydrogenase Total Creatine Kinase CK-MB (CK-2) Rel Index Troponin T 0.080 H C-Reactive Protein Total Protein Albumin 3.6 L Prealbumin LDL Cholesterol Direct 41 L HDL Cholesterol Arterial Blood Glucose Arterial Blood Ionized Calcium Urine WBC (Auto) 02/24/20 02/24/20 02/24/20 09:19 09:58 10:01 WBC RBC Hgb Hct MCV MCH RDW Plt Count Lymph % (Auto) Antelope % (Auto) Lymph # (Auto) [place]elope # (Auto) Seg Neutrophils % Seg Neuts % (Manual) Lymphocytes % (Manual) Monocytes % (Manual) Basophils % (Manual) Seg Neutrophils # Seg Neutrophils # Man Lymphocytes # (Manual) Monocytes # (Manual) Eosinophils # (Manual) Basophils # (Manual) PT INR D-Dimer ABG pH 7.176 L* POC ABG pCO2 POC ABG pO2 ABG pO2 91.2 H ABG HCO3 ABG O2 Saturation ABG Base Excess -4.6 L ABG Hemoglobin ABG Oxyhemoglobin ABG Potassium ABG Glucose Oxyhemoglobin 92.6 L Carboxyhemoglobin Sodium Potassium Chloride Carbon Dioxide BUN Creatinine Glucose POC Glucose Calcium Ferritin 1715.0 H Total Bilirubin Alkaline Phosphatase Lactate Dehydrogenase 303 H Total Creatine Kinase CK-MB (CK-2) Rel Index Troponin T C-Reactive Protein 26.10 H Total Protein Albumin Prealbumin LDL Cholesterol Direct HDL Cholesterol Arterial Blood Glucose Arterial Blood Ionized Calcium Urine WBC (Auto) 02/24/20 02/24/20 02/24/20 11:52 13:45 19:35 WBC RBC Hgb Hct MCV MCH RDW Plt Count Lymph % (Auto) [place]elope % (Auto) Lymph # (Auto) [place]elope # (Auto) Seg Neutrophils % Seg Neuts % (Manual) Lymphocytes % (Manual) Monocytes % (Manual) Basophils % (Manual) Seg Neutrophils # Seg Neutrophils # Man Lymphocytes # (Manual) Monocytes # (Manual) Eosinophils # (Manual) Basophils # (Manual) PT INR D-Dimer ABG pH 7.051 L* 7.300 L POC ABG pCO2 POC ABG pO2 ABG pO2 94.7 H 75.1 L ABG HCO3 18.0 L ABG O2 Saturation 93.5 L ABG Base Excess -6.8 L -7.8 L ABG Hemoglobin 13.2 L 11.9 L ABG Oxyhemoglobin ABG Potassium ABG Glucose Oxyhemoglobin 91.0 L 92.7 L Carboxyhemoglobin Sodium Potassium Chloride Carbon Dioxide BUN Creatinine Glucose POC Glucose Calcium Ferritin Total Bilirubin Alkaline Phosphatase Lactate Dehydrogenase Total Creatine Kinase CK-MB (CK-2) Rel Index Troponin T 0.034 H D C-Reactive Protein Total Protein Albumin Prealbumin LDL Cholesterol Direct HDL Cholesterol Arterial Blood Glucose Arterial Blood Ionized Calcium Urine WBC (Auto) 02/25/20 02/25/20 02/25/20 04:00 04:00 12:26 WBC 22.9 H RBC Hgb Hct MCV 83 L MCH 27 L RDW Plt Count 468 H Lymph % (Auto) [place]elope % (Auto) Lymph # (Auto) [place]elope # (Auto) Seg Neutrophils % Seg Neuts % (Manual) 89.0 H Lymphocytes % (Manual) 7.0 L Monocytes % (Manual) Basophils % (Manual) Seg Neutrophils # Seg Neutrophils # Man 20.4 H Lymphocytes # (Manual) Monocytes # (Manual) Eosinophils # (Manual) Basophils # (Manual) PT INR D-Dimer ABG pH POC ABG pCO2 POC ABG pO2 ABG pO2 ABG HCO3 ABG O2 Saturation ABG Base Excess ABG Hemoglobin ABG Oxyhemoglobin ABG Potassium 2.6 L ABG Glucose 142 H Oxyhemoglobin Carboxyhemoglobin Sodium Potassium 3.2 L Chloride Carbon Dioxide 18 L BUN Creatinine 0.2 L Glucose 114 H POC Glucose Calcium Ferritin Total Bilirubin Alkaline Phosphatase Lactate Dehydrogenase Total Creatine Kinase CK-MB (CK-2) Rel Index Troponin T C-Reactive Protein Total Protein Albumin 3.5 L Prealbumin LDL Cholesterol Direct HDL Cholesterol Arterial Blood Glucose 142 H Arterial Blood Ionized Calcium Urine WBC (Auto) 02/26/20 02/26/20 02/26/20 15:58 17:00 23:43 WBC RBC Hgb Hct MCV MCH RDW Plt Count Lymph % (Auto) [place]elope % (Auto) Lymph # (Auto) [place]elope # (Auto) Seg Neutrophils % Seg Neuts % (Manual) Lymphocytes % (Manual) Monocytes % (Manual) Basophils % (Manual) Seg Neutrophils # Seg Neutrophils # Man Lymphocytes # (Manual) Monocytes # (Manual) Eosinophils # (Manual) Basophils # (Manual) PT INR D-Dimer ABG pH 7.502 H POC ABG pCO2 POC ABG pO2 213.6 H ABG pO2 ABG HCO3 ABG O2 Saturation ABG Base Excess ABG Hemoglobin ABG Oxyhemoglobin 99.2 H ABG Potassium 2.9 L ABG Glucose 160 H Oxyhemoglobin Carboxyhemoglobin 0.4 L Sodium Potassium Chloride Carbon Dioxide BUN Creatinine Glucose POC Glucose 189 H 120 H Calcium Ferritin Total Bilirubin Alkaline Phosphatase Lactate Dehydrogenase Total Creatine Kinase CK-MB (CK-2) Rel Index Troponin T C-Reactive Protein Total Protein Albumin Prealbumin LDL Cholesterol Direct HDL Cholesterol Arterial Blood Glucose 160 H Arterial Blood Ionized Calcium 4.5 L Urine WBC (Auto) 02/27/20 02/27/20 02/27/20 05:00 07:04 17:45 WBC RBC Hgb Hct MCV MCH RDW Plt Count Lymph % (Auto) [place]elope % (Auto) Lymph # (Auto) [place]elope # (Auto) Seg Neutrophils % Seg Neuts % (Manual) Lymphocytes % (Manual) Monocytes % (Manual) Basophils % (Manual) Seg Neutrophils # Seg Neutrophils # Man Lymphocytes # (Manual) Monocytes # (Manual) Eosinophils # (Manual) Basophils # (Manual) PT INR D-Dimer ABG pH 7.524 H POC ABG pCO2 POC ABG pO2 ABG pO2 ABG HCO3 ABG O2 Saturation ABG Base Excess ABG Hemoglobin ABG Oxyhemoglobin ABG Potassium 3.0 L ABG Glucose 143 H Oxyhemoglobin Carboxyhemoglobin Sodium Potassium Chloride Carbon Dioxide BUN Creatinine Glucose POC Glucose 154 H 175 H Calcium Ferritin Total Bilirubin Alkaline Phosphatase Lactate Dehydrogenase Total Creatine Kinase CK-MB (CK-2) Rel Index Troponin T C-Reactive Protein Total Protein Albumin Prealbumin LDL Cholesterol Direct HDL Cholesterol Arterial Blood Glucose 143 H Arterial Blood Ionized Calcium Urine WBC (Auto) 02/27/20 02/28/20 02/28/20 Unknown 00:21 04:15 WBC 18.7 H RBC Hgb Hct MCV MCH RDW Plt Count Lymph % (Auto) 8.7 L [place]elope % (Auto) Lymph # (Auto) [place]elope # (Auto) 1.2 H Seg Neutrophils % 84.6 H Seg Neuts % (Manual) Lymphocytes % (Manual) Monocytes % (Manual) Basophils % (Manual) Seg Neutrophils # 15.9 H Seg Neutrophils # Man Lymphocytes # (Manual) Monocytes # (Manual) Eosinophils # (Manual) Basophils # (Manual) PT INR D-Dimer ABG pH POC ABG pCO2 POC ABG pO2 ABG pO2 ABG HCO3 ABG O2 Saturation ABG Base Excess ABG Hemoglobin ABG Oxyhemoglobin ABG Potassium ABG Glucose Oxyhemoglobin Carboxyhemoglobin Sodium Potassium 2.9 L* Chloride Carbon Dioxide 33 H D BUN Creatinine < 0.2 L Glucose 157 H POC Glucose 134 H Calcium Ferritin Total Bilirubin Alkaline Phosphatase Lactate Dehydrogenase Total Creatine Kinase CK-MB (CK-2) Rel Index Troponin T C-Reactive Protein Total Protein Albumin Prealbumin LDL Cholesterol Direct HDL Cholesterol Arterial Blood Glucose Arterial Blood Ionized Calcium Urine WBC (Auto) 02/28/20 02/28/20 02/28/20 04:15 05:16 05:39 WBC RBC Hgb Hct MCV MCH RDW Plt Count Lymph % (Auto) [place]elope % (Auto) Lymph # (Auto) [place]elope # (Auto) Seg Neutrophils % Seg Neuts % (Manual) Lymphocytes % (Manual) Monocytes % (Manual) Basophils % (Manual) Seg Neutrophils # Seg Neutrophils # Man Lymphocytes # (Manual) Monocytes # (Manual) Eosinophils # (Manual) Basophils # (Manual) PT INR D-Dimer ABG pH POC ABG pCO2 POC ABG pO2 ABG pO2 142.9 H ABG HCO3 34.1 H ABG O2 Saturation ABG Base Excess 8.3 H ABG Hemoglobin ABG Oxyhemoglobin ABG Potassium ABG Glucose Oxyhemoglobin Carboxyhemoglobin Sodium 151 H Potassium Chloride Carbon Dioxide 32 H BUN Creatinine 0.2 L Glucose 167 H POC Glucose 138 H Calcium Ferritin Total Bilirubin Alkaline Phosphatase Lactate Dehydrogenase Total Creatine Kinase CK-MB (CK-2) Rel Index Troponin T C-Reactive Protein Total Protein Albumin Prealbumin LDL Cholesterol Direct HDL Cholesterol Arterial Blood Glucose Arterial Blood Ionized Calcium Urine WBC (Auto) 02/28/20 02/28/20 02/28/20 11:05 11:33 12:54 WBC RBC Hgb Hct MCV MCH RDW Plt Count Lymph % (Auto) [place]elope % (Auto) Lymph # (Auto) [place]elope # (Auto) Seg Neutrophils % Seg Neuts % (Manual) Lymphocytes % (Manual) Monocytes % (Manual) Basophils % (Manual) Seg Neutrophils # Seg Neutrophils # Man Lymphocytes # (Manual) Monocytes # (Manual) Eosinophils # (Manual) Basophils # (Manual) PT INR D-Dimer ABG pH POC ABG pCO2 POC ABG pO2 ABG pO2 ABG HCO3 ABG O2 Saturation ABG Base Excess ABG Hemoglobin ABG Oxyhemoglobin ABG Potassium ABG Glucose Oxyhemoglobin Carboxyhemoglobin Sodium Potassium Chloride Carbon Dioxide BUN Creatinine Glucose POC Glucose 160 H Calcium Ferritin Total Bilirubin Alkaline Phosphatase Lactate Dehydrogenase Total Creatine Kinase CK-MB (CK-2) Rel Index Troponin T C-Reactive Protein 4.70 H Total Protein Albumin Prealbumin 0.090 L LDL Cholesterol Direct HDL Cholesterol Arterial Blood Glucose Arterial Blood Ionized Calcium Urine WBC (Auto) 02/28/20 02/29/20 02/29/20 17:34 00:44 04:05 WBC 19.6 H RBC Hgb Hct MCV MCH 27 L RDW 15.4 H Plt Count Lymph % (Auto) [place]elope % (Auto) Lymph # (Auto) [place]elope # (Auto) Seg Neutrophils % Seg Neuts % (Manual) 86.0 H Lymphocytes % (Manual) 7.0 L Monocytes % (Manual) Basophils % (Manual) Seg Neutrophils # Seg Neutrophils # Man 16.9 H Lymphocytes # (Manual) Monocytes # (Manual) 1.2 H Eosinophils # (Manual) Basophils # (Manual) PT INR D-Dimer ABG pH POC ABG pCO2 POC ABG pO2 ABG pO2 ABG HCO3 ABG O2 Saturation ABG Base Excess ABG Hemoglobin ABG Oxyhemoglobin ABG Potassium ABG Glucose Oxyhemoglobin Carboxyhemoglobin Sodium Potassium Chloride Carbon Dioxide BUN Creatinine Glucose POC Glucose 136 H 156 H Calcium Ferritin Total Bilirubin Alkaline Phosphatase Lactate Dehydrogenase Total Creatine Kinase CK-MB (CK-2) Rel Index Troponin T C-Reactive Protein Total Protein Albumin Prealbumin LDL Cholesterol Direct HDL Cholesterol Arterial Blood Glucose Arterial Blood Ionized Calcium Urine WBC (Auto) 02/29/20 02/29/20 02/29/20 04:05 05:14 05:33 WBC RBC Hgb Hct MCV MCH RDW Plt Count Lymph % (Auto) [place]elope % (Auto) Lymph # (Auto) [place]elope # (Auto) Seg Neutrophils % Seg Neuts % (Manual) Lymphocytes % (Manual) Monocytes % (Manual) Basophils % (Manual) Seg Neutrophils # Seg Neutrophils # Man Lymphocytes # (Manual) Monocytes # (Manual) Eosinophils # (Manual) Basophils # (Manual) PT INR D-Dimer ABG pH POC ABG pCO2 54.3 H POC ABG pO2 124.8 H ABG pO2 ABG HCO3 ABG O2 Saturation ABG Base Excess ABG Hemoglobin ABG Oxyhemoglobin ABG Potassium ABG Glucose 185 H Oxyhemoglobin Carboxyhemoglobin Sodium 148 H Potassium Chloride Carbon Dioxide 33 H BUN Creatinine < 0.2 L Glucose 173 H POC Glucose 152 H Calcium Ferritin Total Bilirubin Alkaline Phosphatase Lactate Dehydrogenase Total Creatine Kinase CK-MB (CK-2) Rel Index Troponin T C-Reactive Protein Total Protein Albumin Prealbumin LDL Cholesterol Direct HDL Cholesterol Arterial Blood Glucose 185 H Arterial Blood Ionized Calcium Urine WBC (Auto) 03/01/20 03/01/20 03/01/20 00:00 03:45 04:33 WBC 23.1 H RBC Hgb Hct MCV MCH 27 L RDW 15.3 H Plt Count Lymph % (Auto) [place]elope % (Auto) Lymph # (Auto) [place]elope # (Auto) Seg Neutrophils % Seg Neuts % (Manual) 92.0 H Lymphocytes % (Manual) 6.0 L Monocytes % (Manual) Basophils % (Manual) Seg Neutrophils # Seg Neutrophils # Man 21.3 H Lymphocytes # (Manual) Monocytes # (Manual) Eosinophils # (Manual) 0.5 H Basophils # (Manual) PT INR D-Dimer ABG pH 7.492 H POC ABG pCO2 POC ABG pO2 ABG pO2 157.1 H ABG HCO3 32.3 H ABG O2 Saturation ABG Base Excess 8.1 H ABG Hemoglobin 13.2 L ABG Oxyhemoglobin ABG Potassium ABG Glucose Oxyhemoglobin Carboxyhemoglobin Sodium Potassium Chloride Carbon Dioxide BUN Creatinine Glucose POC Glucose 109 H Calcium Ferritin Total Bilirubin Alkaline Phosphatase Lactate Dehydrogenase Total Creatine Kinase CK-MB (CK-2) Rel Index Troponin T C-Reactive Protein Total Protein Albumin Prealbumin LDL Cholesterol Direct HDL Cholesterol Arterial Blood Glucose Arterial Blood Ionized Calcium Urine WBC (Auto) 03/01/20 03/01/20 03/01/20 04:33 05:29 12:32 WBC RBC Hgb Hct MCV MCH RDW Plt Count Lymph % (Auto) [place]elope % (Auto) Lymph # (Auto) [place]elope # (Auto) Seg Neutrophils % Seg Neuts % (Manual) Lymphocytes % (Manual) Monocytes % (Manual) Basophils % (Manual) Seg Neutrophils # Seg Neutrophils # Man Lymphocytes # (Manual) Monocytes # (Manual) Eosinophils # (Manual) Basophils # (Manual) PT INR D-Dimer ABG pH POC ABG pCO2 POC ABG pO2 ABG pO2 ABG HCO3 ABG O2 Saturation ABG Base Excess ABG Hemoglobin ABG Oxyhemoglobin ABG Potassium ABG Glucose Oxyhemoglobin Carboxyhemoglobin Sodium 146 H Potassium Chloride Carbon Dioxide 32 H BUN Creatinine < 0.2 L Glucose 120 H POC Glucose 120 H 128 H Calcium Ferritin Total Bilirubin Alkaline Phosphatase Lactate Dehydrogenase Total Creatine Kinase CK-MB (CK-2) Rel Index Troponin T C-Reactive Protein Total Protein Albumin Prealbumin LDL Cholesterol Direct HDL Cholesterol Arterial Blood Glucose Arterial Blood Ionized Calcium Urine WBC (Auto) 03/01/20 03/01/20 03/02/20 17:38 23:46 06:13 WBC RBC Hgb Hct MCV MCH RDW Plt Count Lymph % (Auto) [place]elope % (Auto) Lymph # (Auto) [place]elope # (Auto) Seg Neutrophils % Seg Neuts % (Manual) Lymphocytes % (Manual) Monocytes % (Manual) Basophils % (Manual) Seg Neutrophils # Seg Neutrophils # Man Lymphocytes # (Manual) Monocytes # (Manual) Eosinophils # (Manual) Basophils # (Manual) PT INR D-Dimer ABG pH POC ABG pCO2 POC ABG pO2 ABG pO2 ABG HCO3 ABG O2 Saturation ABG Base Excess ABG Hemoglobin ABG Oxyhemoglobin ABG Potassium ABG Glucose Oxyhemoglobin Carboxyhemoglobin Sodium Potassium Chloride Carbon Dioxide BUN Creatinine Glucose POC Glucose 114 H 121 H 120 H Calcium Ferritin Total Bilirubin Alkaline Phosphatase Lactate Dehydrogenase Total Creatine Kinase CK-MB (CK-2) Rel Index Troponin T C-Reactive Protein Total Protein Albumin Prealbumin LDL Cholesterol Direct HDL Cholesterol Arterial Blood Glucose Arterial Blood Ionized Calcium Urine WBC (Auto) 03/02/20 03/02/20 03/03/20 09:47 09:47 10:21 WBC 23.6 H RBC Hgb Hct MCV MCH RDW 15.3 H Plt Count 494 H Lymph % (Auto) [place]elope % (Auto) Lymph # (Auto) [place]elope # (Auto) Seg Neutrophils % Seg Neuts % (Manual) 85.0 H Lymphocytes % (Manual) 6.0 L Monocytes % (Manual) Basophils % (Manual) Seg Neutrophils # Seg Neutrophils # Man 20.1 H Lymphocytes # (Manual) Monocytes # (Manual) 1.7 H Eosinophils # (Manual) Basophils # (Manual) PT INR D-Dimer ABG pH POC ABG pCO2 POC ABG pO2 ABG pO2 ABG HCO3 ABG O2 Saturation ABG Base Excess ABG Hemoglobin ABG Oxyhemoglobin ABG Potassium 3.3 L ABG Glucose 158 H Oxyhemoglobin Carboxyhemoglobin Sodium Potassium Chloride Carbon Dioxide BUN Creatinine < 0.2 L Glucose 177 H POC Glucose Calcium Ferritin Total Bilirubin Alkaline Phosphatase Lactate Dehydrogenase Total Creatine Kinase CK-MB (CK-2) Rel Index Troponin T C-Reactive Protein Total Protein Albumin Prealbumin LDL Cholesterol Direct HDL Cholesterol Arterial Blood Glucose 158 H Arterial Blood Ionized Calcium Urine WBC (Auto) 03/03/20 03/04/20 03/04/20 21:30 00:00 12:23 WBC RBC Hgb Hct MCV MCH RDW Plt Count Lymph % (Auto) [place]elope % (Auto) Lymph # (Auto) [place]elope # (Auto) Seg Neutrophils % Seg Neuts % (Manual) Lymphocytes % (Manual) Monocytes % (Manual) Basophils % (Manual) Seg Neutrophils # Seg Neutrophils # Man Lymphocytes # (Manual) Monocytes # (Manual) Eosinophils # (Manual) Basophils # (Manual) PT INR D-Dimer ABG pH 7.328 L POC ABG pCO2 POC ABG pO2 ABG pO2 68.4 L ABG HCO3 35.0 H ABG O2 Saturation 93.9 L ABG Base Excess 6.8 H ABG Hemoglobin 12.7 L ABG Oxyhemoglobin ABG Potassium ABG Glucose Oxyhemoglobin 91.9 L Carboxyhemoglobin Sodium Potassium Chloride Carbon Dioxide BUN Creatinine Glucose POC Glucose 187 H 163 H Calcium Ferritin Total Bilirubin Alkaline Phosphatase Lactate Dehydrogenase Total Creatine Kinase CK-MB (CK-2) Rel Index Troponin T C-Reactive Protein Total Protein Albumin Prealbumin LDL Cholesterol Direct HDL Cholesterol Arterial Blood Glucose Arterial Blood Ionized Calcium Urine WBC (Auto) 1103/04/20 03/05/20 18:15 21:30 06:02 WBC RBC Hgb Hct MCV MCH RDW Plt Count Lymph % (Auto) [place]elope % (Auto) Lymph # (Auto) [place]elope # (Auto) Seg Neutrophils % Seg Neuts % (Manual) Lymphocytes % (Manual) Monocytes % (Manual) Basophils % (Manual) Seg Neutrophils # Seg Neutrophils # Man Lymphocytes # (Manual) Monocytes # (Manual) Eosinophils # (Manual) Basophils # (Manual) PT INR D-Dimer ABG pH 7.297 L POC ABG pCO2 POC ABG pO2 ABG pO2 ABG HCO3 41.0 H ABG O2 Saturation ABG Base Excess 11.0 H ABG Hemoglobin 13.1 L ABG Oxyhemoglobin ABG Potassium ABG Glucose Oxyhemoglobin 94.5 L Carboxyhemoglobin Sodium Potassium Chloride Carbon Dioxide BUN Creatinine Glucose POC Glucose 192 H 127 H Calcium Ferritin Total Bilirubin Alkaline Phosphatase Lactate Dehydrogenase Total Creatine Kinase CK-MB (CK-2) Rel Index Troponin T C-Reactive Protein Total Protein Albumin Prealbumin LDL Cholesterol Direct HDL Cholesterol Arterial Blood Glucose Arterial Blood Ionized Calcium Urine WBC (Auto) 03/05/20 03/05/20 03/06/20 12:09 16:42 00:24 WBC RBC Hgb Hct MCV MCH RDW Plt Count Lymph % (Auto) [place]elope % (Auto) Lymph # (Auto) [place]elope # (Auto) Seg Neutrophils % Seg Neuts % (Manual) Lymphocytes % (Manual) Monocytes % (Manual) Basophils % (Manual) Seg Neutrophils # Seg Neutrophils # Man Lymphocytes # (Manual) Monocytes # (Manual) Eosinophils # (Manual) Basophils # (Manual) PT INR D-Dimer ABG pH POC ABG pCO2 POC ABG pO2 ABG pO2 ABG HCO3 ABG O2 Saturation ABG Base Excess ABG Hemoglobin ABG Oxyhemoglobin ABG Potassium ABG Glucose Oxyhemoglobin Carboxyhemoglobin Sodium Potassium Chloride Carbon Dioxide BUN Creatinine Glucose POC Glucose 147 H 114 H 134 H Calcium Ferritin Total Bilirubin Alkaline Phosphatase Lactate Dehydrogenase Total Creatine Kinase CK-MB (CK-2) Rel Index Troponin T C-Reactive Protein Total Protein Albumin Prealbumin LDL Cholesterol Direct HDL Cholesterol Arterial Blood Glucose Arterial Blood Ionized Calcium Urine WBC (Auto) 03/06/20 03/06/20 03/06/20 04:34 05:53 06:08 WBC 25.4 H RBC Hgb 10.5 L Hct 32.7 L MCV MCH 27 L RDW 15.3 H Plt Count 634 H Lymph % (Auto) [place]elope % (Auto) Lymph # (Auto) [place]elope # (Auto) Seg Neutrophils % Seg Neuts % (Manual) 88.0 H Lymphocytes % (Manual) 2.0 L Monocytes % (Manual) 8.0 H Basophils % (Manual) Seg Neutrophils # Seg Neutrophils # Man 22.4 H Lymphocytes # (Manual) 0.5 L Monocytes # (Manual) 2.0 H Eosinophils # (Manual) Basophils # (Manual) PT INR D-Dimer ABG pH POC ABG pCO2 POC ABG pO2 ABG pO2 ABG HCO3 37.9 H ABG O2 Saturation ABG Base Excess 11.4 H ABG Hemoglobin 10.6 L ABG Oxyhemoglobin ABG Potassium ABG Glucose Oxyhemoglobin 94.7 L Carboxyhemoglobin Sodium Potassium Chloride Carbon Dioxide BUN Creatinine Glucose POC Glucose 135 H Calcium Ferritin Total Bilirubin Alkaline Phosphatase Lactate Dehydrogenase Total Creatine Kinase CK-MB (CK-2) Rel Index Troponin T C-Reactive Protein Total Protein Albumin Prealbumin LDL Cholesterol Direct HDL Cholesterol Arterial Blood Glucose Arterial Blood Ionized Calcium Urine WBC (Auto) 03/06/20 03/06/20 03/06/20 06:08 12:19 19:10 WBC RBC Hgb Hct MCV MCH RDW Plt Count Lymph % (Auto) [place]elope % (Auto) Lymph # (Auto) [place]elope # (Auto) Seg Neutrophils % Seg Neuts % (Manual) Lymphocytes % (Manual) Monocytes % (Manual) Basophils % (Manual) Seg Neutrophils # Seg Neutrophils # Man Lymphocytes # (Manual) Monocytes # (Manual) Eosinophils # (Manual) Basophils # (Manual) PT INR D-Dimer ABG pH POC ABG pCO2 POC ABG pO2 ABG pO2 ABG HCO3 ABG O2 Saturation ABG Base Excess ABG Hemoglobin ABG Oxyhemoglobin ABG Potassium ABG Glucose Oxyhemoglobin Carboxyhemoglobin Sodium 150 H D Potassium Chloride Carbon Dioxide 39 H D BUN 23 H Creatinine < 0.2 L Glucose 144 H POC Glucose 169 H 152 H Calcium Ferritin Total Bilirubin Alkaline Phosphatase Lactate Dehydrogenase Total Creatine Kinase CK-MB (CK-2) Rel Index Troponin T C-Reactive Protein Total Protein Albumin 3.3 L Prealbumin LDL Cholesterol Direct HDL Cholesterol Arterial Blood Glucose Arterial Blood Ionized Calcium Urine WBC (Auto) 03/06/20 03/07/20 03/07/20 23:58 04:25 04:25 WBC 22.1 H RBC Hgb 10.9 L Hct 32.9 L MCV MCH RDW 15.5 H Plt Count 739 H Lymph % (Auto) 7.8 L [place]elope % (Auto) Lymph # (Auto) [place]elope # (Auto) 1.3 H Seg Neutrophils % 85.5 H Seg Neuts % (Manual) Lymphocytes % (Manual) Monocytes % (Manual) Basophils % (Manual) Seg Neutrophils # 18.9 H Seg Neutrophils # Man Lymphocytes # (Manual) Monocytes # (Manual) Eosinophils # (Manual) Basophils # (Manual) PT INR D-Dimer ABG pH POC ABG pCO2 POC ABG pO2 ABG pO2 ABG HCO3 ABG O2 Saturation ABG Base Excess ABG Hemoglobin ABG Oxyhemoglobin ABG Potassium ABG Glucose Oxyhemoglobin Carboxyhemoglobin Sodium 146 H Potassium Chloride Carbon Dioxide 37 H BUN Creatinine < 0.2 L Glucose 118 H POC Glucose 111 H Calcium Ferritin Total Bilirubin Alkaline Phosphatase Lactate Dehydrogenase Total Creatine Kinase CK-MB (CK-2) Rel Index Troponin T C-Reactive Protein Total Protein Albumin 3.7 L Prealbumin LDL Cholesterol Direct HDL Cholesterol Arterial Blood Glucose Arterial Blood Ionized Calcium Urine WBC (Auto) 03/07/20 03/07/20 03/07/20 05:20 17:45 23:32 WBC RBC Hgb Hct MCV MCH RDW Plt Count Lymph % (Auto) [place]elope % (Auto) Lymph # (Auto) [place]elope # (Auto) Seg Neutrophils % Seg Neuts % (Manual) Lymphocytes % (Manual) Monocytes % (Manual) Basophils % (Manual) Seg Neutrophils # Seg Neutrophils # Man Lymphocytes # (Manual) Monocytes # (Manual) Eosinophils # (Manual) Basophils # (Manual) PT INR D-Dimer ABG pH POC ABG pCO2 POC ABG pO2 ABG pO2 ABG HCO3 ABG O2 Saturation ABG Base Excess ABG Hemoglobin ABG Oxyhemoglobin ABG Potassium ABG Glucose Oxyhemoglobin Carboxyhemoglobin Sodium Potassium Chloride Carbon Dioxide BUN Creatinine Glucose POC Glucose 113 H 124 H 210 H Calcium Ferritin Total Bilirubin Alkaline Phosphatase Lactate Dehydrogenase Total Creatine Kinase CK-MB (CK-2) Rel Index Troponin T C-Reactive Protein Total Protein Albumin Prealbumin LDL Cholesterol Direct HDL Cholesterol Arterial Blood Glucose Arterial Blood Ionized Calcium Urine WBC (Auto) 03/08/20 03/08/20 03/08/20 05:35 06:43 06:43 WBC 28.9 H RBC 3.53 L Hgb 9.7 L Hct 30.3 L MCV MCH RDW 15.6 H Plt Count 578 H Lymph % (Auto) [place]elope % (Auto) Lymph # (Auto) [place]elope # (Auto) Seg Neutrophils % Seg Neuts % (Manual) 93.0 H Lymphocytes % (Manual) 4.0 L Monocytes % (Manual) Basophils % (Manual) Seg Neutrophils # Seg Neutrophils # Man 26.9 H Lymphocytes # (Manual) Monocytes # (Manual) Eosinophils # (Manual) Basophils # (Manual) PT INR D-Dimer ABG pH POC ABG pCO2 POC ABG pO2 ABG pO2 ABG HCO3 ABG O2 Saturation ABG Base Excess ABG Hemoglobin ABG Oxyhemoglobin ABG Potassium ABG Glucose Oxyhemoglobin Carboxyhemoglobin Sodium 146 H Potassium Chloride Carbon Dioxide 35 H BUN 34 H Creatinine 0.3 L D Glucose 125 H POC Glucose 147 H Calcium Ferritin Total Bilirubin Alkaline Phosphatase Lactate Dehydrogenase Total Creatine Kinase CK-MB (CK-2) Rel Index Troponin T C-Reactive Protein Total Protein 5.9 L Albumin 3.2 L Prealbumin LDL Cholesterol Direct HDL Cholesterol Arterial Blood Glucose Arterial Blood Ionized Calcium Urine WBC (Auto) 03/08/20 03/08/20 03/08/20 08:57 11:14 12:34 WBC RBC Hgb Hct MCV MCH RDW Plt Count Lymph % (Auto) [place]elope % (Auto) Lymph # (Auto) [place]elope # (Auto) Seg Neutrophils % Seg Neuts % (Manual) Lymphocytes % (Manual) Monocytes % (Manual) Basophils % (Manual) Seg Neutrophils # Seg Neutrophils # Man Lymphocytes # (Manual) Monocytes # (Manual) Eosinophils # (Manual) Basophils # (Manual) PT INR D-Dimer ABG pH POC ABG pCO2 63.1 H POC ABG pO2 ABG pO2 ABG HCO3 ABG O2 Saturation ABG Base Excess ABG Hemoglobin 10.9 L ABG Oxyhemoglobin ABG Potassium ABG Glucose 176 H Oxyhemoglobin Carboxyhemoglobin Sodium Potassium Chloride Carbon Dioxide BUN Creatinine Glucose POC Glucose 171 H Calcium Ferritin Total Bilirubin Alkaline Phosphatase Lactate Dehydrogenase Total Creatine Kinase CK-MB (CK-2) Rel Index Troponin T C-Reactive Protein Total Protein Albumin Prealbumin LDL Cholesterol Direct HDL Cholesterol Arterial Blood Glucose 176 H Arterial Blood Ionized Calcium 4.5 L Urine WBC (Auto) 10.0 H 03/08/20 03/08/20 03/09/20 18:02 23:43 05:49 WBC RBC Hgb Hct MCV MCH RDW Plt Count Lymph % (Auto) [place]elope % (Auto) Lymph # (Auto) [place]elope # (Auto) Seg Neutrophils % Seg Neuts % (Manual) Lymphocytes % (Manual) Monocytes % (Manual) Basophils % (Manual) Seg Neutrophils # Seg Neutrophils # Man Lymphocytes # (Manual) Monocytes # (Manual) Eosinophils # (Manual) Basophils # (Manual) PT INR D-Dimer ABG pH POC ABG pCO2 POC ABG pO2 ABG pO2 ABG HCO3 ABG O2 Saturation ABG Base Excess ABG Hemoglobin ABG Oxyhemoglobin ABG Potassium ABG Glucose Oxyhemoglobin Carboxyhemoglobin Sodium Potassium Chloride Carbon Dioxide BUN Creatinine Glucose POC Glucose 157 H 134 H 163 H Calcium Ferritin Total Bilirubin Alkaline Phosphatase Lactate Dehydrogenase Total Creatine Kinase CK-MB (CK-2) Rel Index Troponin T C-Reactive Protein Total Protein Albumin Prealbumin LDL Cholesterol Direct HDL Cholesterol Arterial Blood Glucose Arterial Blood Ionized Calcium Urine WBC (Auto) 03/09/20 03/09/20 03/09/20 08:35 08:35 12:11 WBC 23.4 H RBC 3.36 L Hgb 9.3 L Hct 28.8 L MCV MCH RDW 15.9 H Plt Count 521 H Lymph % (Auto) [place]elope % (Auto) Lymph # (Auto) [place]elope # (Auto) Seg Neutrophils % Seg Neuts % (Manual) 87.0 H Lymphocytes % (Manual) 4.0 L Monocytes % (Manual) 9.0 H Basophils % (Manual) Seg Neutrophils # Seg Neutrophils # Man 20.4 H Lymphocytes # (Manual) 0.9 L Monocytes # (Manual) 2.1 H Eosinophils # (Manual) Basophils # (Manual) PT INR D-Dimer ABG pH POC ABG pCO2 POC ABG pO2 ABG pO2 ABG HCO3 ABG O2 Saturation ABG Base Excess ABG Hemoglobin ABG Oxyhemoglobin ABG Potassium ABG Glucose Oxyhemoglobin Carboxyhemoglobin Sodium 147 H Potassium Chloride Carbon Dioxide 37 H BUN 63 H Creatinine Glucose 154 H POC Glucose 128 H Calcium Ferritin Total Bilirubin Alkaline Phosphatase Lactate Dehydrogenase Total Creatine Kinase CK-MB (CK-2) Rel Index Troponin T C-Reactive Protein Total Protein Albumin Prealbumin LDL Cholesterol Direct HDL Cholesterol Arterial Blood Glucose Arterial Blood Ionized Calcium Urine WBC (Auto) 03/09/20 03/10/20 03/10/20 17:51 00:25 05:41 WBC RBC Hgb Hct MCV MCH RDW Plt Count Lymph % (Auto) [place]elope % (Auto) Lymph # (Auto) [place]elope # (Auto) Seg Neutrophils % Seg Neuts % (Manual) Lymphocytes % (Manual) Monocytes % (Manual) Basophils % (Manual) Seg Neutrophils # Seg Neutrophils # Man Lymphocytes # (Manual) Monocytes # (Manual) Eosinophils # (Manual) Basophils # (Manual) PT INR D-Dimer ABG pH POC ABG pCO2 POC ABG pO2 ABG pO2 ABG HCO3 ABG O2 Saturation ABG Base Excess ABG Hemoglobin ABG Oxyhemoglobin ABG Potassium ABG Glucose Oxyhemoglobin Carboxyhemoglobin Sodium Potassium Chloride Carbon Dioxide BUN Creatinine Glucose POC Glucose 127 H 128 H 153 H Calcium Ferritin Total Bilirubin Alkaline Phosphatase Lactate Dehydrogenase Total Creatine Kinase CK-MB (CK-2) Rel Index Troponin T C-Reactive Protein Total Protein Albumin Prealbumin LDL Cholesterol Direct HDL Cholesterol Arterial Blood Glucose Arterial Blood Ionized Calcium Urine WBC (Auto) 03/10/20 03/10/20 03/10/20 06:14 06:14 12:02 WBC 18.3 H RBC 3.45 L Hgb 9.5 L Hct 29.5 L MCV MCH RDW 16.1 H Plt Count 494 H Lymph % (Auto) [place]elope % (Auto) Lymph # (Auto) [place]elope # (Auto) Seg Neutrophils % Seg Neuts % (Manual) 95.0 H Lymphocytes % (Manual) 1.0 L Monocytes % (Manual) Basophils % (Manual) Seg Neutrophils # Seg Neutrophils # Man 17.4 H Lymphocytes # (Manual) 0.2 L Monocytes # (Manual) Eosinophils # (Manual) Basophils # (Manual) PT INR D-Dimer ABG pH POC ABG pCO2 POC ABG pO2 ABG pO2 ABG HCO3 ABG O2 Saturation ABG Base Excess ABG Hemoglobin ABG Oxyhemoglobin ABG Potassium ABG Glucose Oxyhemoglobin Carboxyhemoglobin Sodium 149 H Potassium Chloride Carbon Dioxide 35 H BUN 34 H Creatinine 0.2 L D Glucose 177 H POC Glucose 151 H Calcium Ferritin Total Bilirubin Alkaline Phosphatase Lactate Dehydrogenase Total Creatine Kinase CK-MB (CK-2) Rel Index Troponin T C-Reactive Protein Total Protein Albumin Prealbumin LDL Cholesterol Direct HDL Cholesterol Arterial Blood Glucose Arterial Blood Ionized Calcium Urine WBC (Auto) 03/10/20 03/10/20 03/11/20 17:41 23:53 05:02 WBC RBC Hgb Hct MCV MCH RDW Plt Count Lymph % (Auto) [place]elope % (Auto) Lymph # (Auto) [place]elope # (Auto) Seg Neutrophils % Seg Neuts % (Manual) Lymphocytes % (Manual) Monocytes % (Manual) Basophils % (Manual) Seg Neutrophils # Seg Neutrophils # Man Lymphocytes # (Manual) Monocytes # (Manual) Eosinophils # (Manual) Basophils # (Manual) PT INR D-Dimer ABG pH POC ABG pCO2 POC ABG pO2 ABG pO2 ABG HCO3 ABG O2 Saturation ABG Base Excess ABG Hemoglobin ABG Oxyhemoglobin ABG Potassium ABG Glucose Oxyhemoglobin Carboxyhemoglobin Sodium Potassium Chloride Carbon Dioxide BUN Creatinine Glucose POC Glucose 168 H 142 H 146 H Calcium Ferritin Total Bilirubin Alkaline Phosphatase Lactate Dehydrogenase Total Creatine Kinase CK-MB (CK-2) Rel Index Troponin T C-Reactive Protein Total Protein Albumin Prealbumin LDL Cholesterol Direct HDL Cholesterol Arterial Blood Glucose Arterial Blood Ionized Calcium Urine WBC (Auto) 03/11/20 03/11/20 03/11/20 11:30 14:01 14:01 WBC 19.7 H RBC 3.04 L Hgb 8.7 L Hct 25.8 L MCV MCH RDW 15.6 H Plt Count Lymph % (Auto) [place]elope % (Auto) Lymph # (Auto) [place]elope # (Auto) Seg Neutrophils % Seg Neuts % (Manual) Lymphocytes % (Manual) Monocytes % (Manual) Basophils % (Manual) Seg Neutrophils # Seg Neutrophils # Man Lymphocytes # (Manual) Monocytes # (Manual) Eosinophils # (Manual) Basophils # (Manual) PT INR D-Dimer ABG pH POC ABG pCO2 POC ABG pO2 ABG pO2 ABG HCO3 ABG O2 Saturation ABG Base Excess ABG Hemoglobin ABG Oxyhemoglobin ABG Potassium ABG Glucose Oxyhemoglobin Carboxyhemoglobin Sodium 151 H Potassium Chloride Carbon Dioxide 37 H BUN Creatinine < 0.2 L Glucose 171 H POC Glucose 248 H Calcium Ferritin Total Bilirubin Alkaline Phosphatase Lactate Dehydrogenase Total Creatine Kinase CK-MB (CK-2) Rel Index Troponin T C-Reactive Protein Total Protein Albumin Prealbumin LDL Cholesterol Direct HDL Cholesterol Arterial Blood Glucose Arterial Blood Ionized Calcium Urine WBC (Auto) 03/11/20 03/11/20 03/12/20 17:09 23:52 04:39 WBC 19.9 H RBC 3.16 L Hgb 8.9 L Hct 27.5 L MCV MCH RDW 15.7 H Plt Count Lymph % (Auto) 6.8 L [place] % (Auto) Lymph # (Auto) [place]elope # (Auto) 1.2 H Seg Neutrophils % 86.0 H Seg Neuts % (Manual) Lymphocytes % (Manual) Monocytes % (Manual) Basophils % (Manual) Seg Neutrophils # 17.1 H Seg Neutrophils # Man Lymphocytes # (Manual) Monocytes # (Manual) Eosinophils # (Manual) Basophils # (Manual) PT INR D-Dimer ABG pH POC ABG pCO2 POC ABG pO2 ABG pO2 ABG HCO3 ABG O2 Saturation ABG Base Excess ABG Hemoglobin ABG Oxyhemoglobin ABG Potassium ABG Glucose Oxyhemoglobin Carboxyhemoglobin Sodium Potassium Chloride Carbon Dioxide BUN Creatinine Glucose POC Glucose 124 H 131 H Calcium Ferritin Total Bilirubin Alkaline Phosphatase Lactate Dehydrogenase Total Creatine Kinase CK-MB (CK-2) Rel Index Troponin T C-Reactive Protein Total Protein Albumin Prealbumin LDL Cholesterol Direct HDL Cholesterol Arterial Blood Glucose Arterial Blood Ionized Calcium Urine WBC (Auto) 03/12/20 03/12/20 03/12/20 04:39 05:28 11:34 WBC RBC Hgb Hct MCV MCH RDW Plt Count Lymph % (Auto) [place] % (Auto) Lymph # (Auto) [place]elope # (Auto) Seg Neutrophils % Seg Neuts % (Manual) Lymphocytes % (Manual) Monocytes % (Manual) Basophils % (Manual) Seg Neutrophils # Seg Neutrophils # Man Lymphocytes # (Manual) Monocytes # (Manual) Eosinophils # (Manual) Basophils # (Manual) PT INR D-Dimer ABG pH POC ABG pCO2 POC ABG pO2 ABG pO2 ABG HCO3 ABG O2 Saturation ABG Base Excess ABG Hemoglobin ABG Oxyhemoglobin ABG Potassium ABG Glucose Oxyhemoglobin Carboxyhemoglobin Sodium 147 H Potassium Chloride Carbon Dioxide 40 H BUN Creatinine < 0.2 L Glucose 175 H POC Glucose 167 H 144 H Calcium Ferritin Total Bilirubin Alkaline Phosphatase Lactate Dehydrogenase Total Creatine Kinase CK-MB (CK-2) Rel Index Troponin T C-Reactive Protein Total Protein Albumin Prealbumin LDL Cholesterol Direct HDL Cholesterol Arterial Blood Glucose Arterial Blood Ionized Calcium Urine WBC (Auto) 03/12/20 03/12/20 03/13/20 17:32 23:57 05:57 WBC RBC Hgb Hct MCV MCH RDW Plt Count Lymph % (Auto) [place] % (Auto) Lymph # (Auto) [place] # (Auto) Seg Neutrophils % Seg Neuts % (Manual) Lymphocytes % (Manual) Monocytes % (Manual) Basophils % (Manual) Seg Neutrophils # Seg Neutrophils # Man Lymphocytes # (Manual) Monocytes # (Manual) Eosinophils # (Manual) Basophils # (Manual) PT INR D-Dimer ABG pH POC ABG pCO2 POC ABG pO2 ABG pO2 ABG HCO3 ABG O2 Saturation ABG Base Excess ABG Hemoglobin ABG Oxyhemoglobin ABG Potassium ABG Glucose Oxyhemoglobin Carboxyhemoglobin Sodium Potassium Chloride Carbon Dioxide BUN Creatinine Glucose POC Glucose 141 H 137 H 161 H Calcium Ferritin Total Bilirubin Alkaline Phosphatase Lactate Dehydrogenase Total Creatine Kinase CK-MB (CK-2) Rel Index Troponin T C-Reactive Protein Total Protein Albumin Prealbumin LDL Cholesterol Direct HDL Cholesterol Arterial Blood Glucose Arterial Blood Ionized Calcium Urine WBC (Auto) 03/13/20 03/13/20 03/13/20 12:28 14:14 18:39 WBC RBC Hgb Hct MCV MCH RDW Plt Count Lymph % (Auto) [place] % (Auto) Lymph # (Auto) [place] # (Auto) Seg Neutrophils % Seg Neuts % (Manual) Lymphocytes % (Manual) Monocytes % (Manual) Basophils % (Manual) Seg Neutrophils # Seg Neutrophils # Man Lymphocytes # (Manual) Monocytes # (Manual) Eosinophils # (Manual) Basophils # (Manual) PT INR D-Dimer ABG pH POC ABG pCO2 POC ABG pO2 ABG pO2 ABG HCO3 ABG O2 Saturation ABG Base Excess ABG Hemoglobin ABG Oxyhemoglobin ABG Potassium ABG Glucose Oxyhemoglobin Carboxyhemoglobin Sodium Potassium Chloride Carbon Dioxide 39 H BUN Creatinine < 0.2 L Glucose 129 H POC Glucose 130 H 125 H Calcium Ferritin Total Bilirubin Alkaline Phosphatase Lactate Dehydrogenase Total Creatine Kinase CK-MB (CK-2) Rel Index Troponin T C-Reactive Protein Total Protein Albumin Prealbumin LDL Cholesterol Direct HDL Cholesterol Arterial Blood Glucose Arterial Blood Ionized Calcium Urine WBC (Auto) 03/13/20 03/14/20 03/14/20 23:33 05:24 08:07 WBC 16.8 H RBC 2.81 L Hgb 7.9 L Hct 23.9 L MCV MCH RDW 15.9 H Plt Count Lymph % (Auto) [place] % (Auto) Lymph # (Auto) [place]elope # (Auto) Seg Neutrophils % Seg Neuts % (Manual) 84.0 H Lymphocytes % (Manual) 10.0 L Monocytes % (Manual) Basophils % (Manual) Seg Neutrophils # Seg Neutrophils # Man 14.1 H Lymphocytes # (Manual) Monocytes # (Manual) Eosinophils # (Manual) Basophils # (Manual) PT INR D-Dimer ABG pH POC ABG pCO2 POC ABG pO2 ABG pO2 ABG HCO3 ABG O2 Saturation ABG Base Excess ABG Hemoglobin ABG Oxyhemoglobin ABG Potassium ABG Glucose Oxyhemoglobin Carboxyhemoglobin Sodium Potassium Chloride Carbon Dioxide BUN Creatinine Glucose POC Glucose 146 H 125 H Calcium Ferritin Total Bilirubin Alkaline Phosphatase Lactate Dehydrogenase Total Creatine Kinase CK-MB (CK-2) Rel Index Troponin T C-Reactive Protein Total Protein Albumin Prealbumin LDL Cholesterol Direct HDL Cholesterol Arterial Blood Glucose Arterial Blood Ionized Calcium Urine WBC (Auto) 03/14/20 03/14/20 03/14/20 08:07 12:21 18:26 WBC RBC Hgb Hct MCV MCH RDW Plt Count Lymph % (Auto) [place] % (Auto) Lymph # (Auto) [place] # (Auto) Seg Neutrophils % Seg Neuts % (Manual) Lymphocytes % (Manual) Monocytes % (Manual) Basophils % (Manual) Seg Neutrophils # Seg Neutrophils # Man Lymphocytes # (Manual) Monocytes # (Manual) Eosinophils # (Manual) Basophils # (Manual) PT INR D-Dimer ABG pH POC ABG pCO2 POC ABG pO2 ABG pO2 ABG HCO3 ABG O2 Saturation ABG Base Excess ABG Hemoglobin ABG Oxyhemoglobin ABG Potassium ABG Glucose Oxyhemoglobin Carboxyhemoglobin Sodium Potassium Chloride 97.0 L Carbon Dioxide 37 H BUN Creatinine < 0.2 L Glucose 129 H POC Glucose 109 H 142 H Calcium 8.3 L Ferritin Total Bilirubin Alkaline Phosphatase Lactate Dehydrogenase Total Creatine Kinase CK-MB (CK-2) Rel Index Troponin T C-Reactive Protein Total Protein Albumin Prealbumin LDL Cholesterol Direct HDL Cholesterol Arterial Blood Glucose Arterial Blood Ionized Calcium Urine WBC (Auto) 03/14/20 03/15/20 03/15/20 23:57 05:46 08:06 WBC 19.7 H RBC 3.29 L Hgb 9.1 L Hct 28.0 L MCV MCH RDW 15.9 H Plt Count Lymph % (Auto) [place] % (Auto) Lymph # (Auto) [place] # (Auto) Seg Neutrophils % Seg Neuts % (Manual) Lymphocytes % (Manual) Monocytes % (Manual) Basophils % (Manual) Seg Neutrophils # Seg Neutrophils # Man Lymphocytes # (Manual) Monocytes # (Manual) Eosinophils # (Manual) Basophils # (Manual) PT INR D-Dimer ABG pH POC ABG pCO2 POC ABG pO2 ABG pO2 ABG HCO3 ABG O2 Saturation ABG Base Excess ABG Hemoglobin ABG Oxyhemoglobin ABG Potassium ABG Glucose Oxyhemoglobin Carboxyhemoglobin Sodium Potassium Chloride Carbon Dioxide BUN Creatinine Glucose POC Glucose 157 H 118 H Calcium Ferritin Total Bilirubin Alkaline Phosphatase Lactate Dehydrogenase Total Creatine Kinase CK-MB (CK-2) Rel Index Troponin T C-Reactive Protein Total Protein Albumin Prealbumin LDL Cholesterol Direct HDL Cholesterol Arterial Blood Glucose Arterial Blood Ionized Calcium Urine WBC (Auto) 03/15/20 03/15/20 03/15/20 08:06 12:44 18:09 WBC RBC Hgb Hct MCV MCH RDW Plt Count Lymph % (Auto) [place] % (Auto) Lymph # (Auto) [place] # (Auto) Seg Neutrophils % Seg Neuts % (Manual) Lymphocytes % (Manual) Monocytes % (Manual) Basophils % (Manual) Seg Neutrophils # Seg Neutrophils # Man Lymphocytes # (Manual) Monocytes # (Manual) Eosinophils # (Manual) Basophils # (Manual) PT INR D-Dimer ABG pH POC ABG pCO2 POC ABG pO2 ABG pO2 ABG HCO3 ABG O2 Saturation ABG Base Excess ABG Hemoglobin ABG Oxyhemoglobin ABG Potassium ABG Glucose Oxyhemoglobin Carboxyhemoglobin Sodium 136 L Potassium Chloride 93.6 L Carbon Dioxide 37 H BUN Creatinine < 0.2 L Glucose 132 H POC Glucose 151 H 164 H Calcium Ferritin Total Bilirubin Alkaline Phosphatase Lactate Dehydrogenase Total Creatine Kinase CK-MB (CK-2) Rel Index Troponin T C-Reactive Protein Total Protein Albumin Prealbumin LDL Cholesterol Direct HDL Cholesterol Arterial Blood Glucose Arterial Blood Ionized Calcium Urine WBC (Auto) 03/15/20 03/16/20 03/16/20 23:26 05:39 11:58 WBC RBC Hgb Hct MCV MCH RDW Plt Count Lymph % (Auto) [place] % (Auto) Lymph # (Auto) [place] # (Auto) Seg Neutrophils % Seg Neuts % (Manual) Lymphocytes % (Manual) Monocytes % (Manual) Basophils % (Manual) Seg Neutrophils # Seg Neutrophils # Man Lymphocytes # (Manual) Monocytes # (Manual) Eosinophils # (Manual) Basophils # (Manual) PT INR D-Dimer ABG pH POC ABG pCO2 POC ABG pO2 ABG pO2 ABG HCO3 ABG O2 Saturation ABG Base Excess ABG Hemoglobin ABG Oxyhemoglobin ABG Potassium ABG Glucose Oxyhemoglobin Carboxyhemoglobin Sodium Potassium Chloride Carbon Dioxide BUN Creatinine Glucose POC Glucose 136 H 116 H 109 H Calcium Ferritin Total Bilirubin Alkaline Phosphatase Lactate Dehydrogenase Total Creatine Kinase CK-MB (CK-2) Rel Index Troponin T C-Reactive Protein Total Protein Albumin Prealbumin LDL Cholesterol Direct HDL Cholesterol Arterial Blood Glucose Arterial Blood Ionized Calcium Urine WBC (Auto) 03/16/20 03/17/20 03/17/20 23:56 04:40 04:40 WBC 18.0 H RBC 3.33 L Hgb 9.5 L Hct 28.8 L MCV MCH RDW 16.4 H Plt Count 499 H Lymph % (Auto) [place] % (Auto) Lymph # (Auto) [place] # (Auto) Seg Neutrophils % Seg Neuts % (Manual) 82.0 H Lymphocytes % (Manual) 8.0 L Monocytes % (Manual) Basophils % (Manual) Seg Neutrophils # Seg Neutrophils # Man 14.8 H Lymphocytes # (Manual) Monocytes # (Manual) 1.3 H Eosinophils # (Manual) Basophils # (Manual) 0.2 H PT INR D-Dimer ABG pH POC ABG pCO2 POC ABG pO2 ABG pO2 ABG HCO3 ABG O2 Saturation ABG Base Excess ABG Hemoglobin ABG Oxyhemoglobin ABG Potassium ABG Glucose Oxyhemoglobin Carboxyhemoglobin Sodium Potassium Chloride 97.7 L Carbon Dioxide 32 H BUN Creatinine < 0.2 L Glucose 114 H POC Glucose 131 H Calcium Ferritin Total Bilirubin Alkaline Phosphatase Lactate Dehydrogenase Total Creatine Kinase CK-MB (CK-2) Rel Index Troponin T C-Reactive Protein Total Protein Albumin Prealbumin LDL Cholesterol Direct HDL Cholesterol Arterial Blood Glucose Arterial Blood Ionized Calcium Urine WBC (Auto) 03/18/20 03/18/20 03/18/20 00:21 05:21 11:55 WBC RBC Hgb Hct MCV MCH RDW Plt Count Lymph % (Auto) [place] % (Auto) Lymph # (Auto) [place] # (Auto) Seg Neutrophils % Seg Neuts % (Manual) Lymphocytes % (Manual) Monocytes % (Manual) Basophils % (Manual) Seg Neutrophils # Seg Neutrophils # Man Lymphocytes # (Manual) Monocytes # (Manual) Eosinophils # (Manual) Basophils # (Manual) PT INR D-Dimer ABG pH POC ABG pCO2 POC ABG pO2 ABG pO2 ABG HCO3 ABG O2 Saturation ABG Base Excess ABG Hemoglobin ABG Oxyhemoglobin ABG Potassium ABG Glucose Oxyhemoglobin Carboxyhemoglobin Sodium Potassium Chloride Carbon Dioxide BUN Creatinine Glucose POC Glucose 124 H 138 H 119 H Calcium Ferritin Total Bilirubin Alkaline Phosphatase Lactate Dehydrogenase Total Creatine Kinase CK-MB (CK-2) Rel Index Troponin T C-Reactive Protein Total Protein Albumin Prealbumin LDL Cholesterol Direct HDL Cholesterol Arterial Blood Glucose Arterial Blood Ionized Calcium Urine WBC (Auto) 03/18/20 03/18/20 03/19/20 17:03 23:58 05:24 WBC RBC Hgb Hct MCV MCH RDW Plt Count Lymph % (Auto) [place] % (Auto) Lymph # (Auto) [place] # (Auto) Seg Neutrophils % Seg Neuts % (Manual) Lymphocytes % (Manual) Monocytes % (Manual) Basophils % (Manual) Seg Neutrophils # Seg Neutrophils # Man Lymphocytes # (Manual) Monocytes # (Manual) Eosinophils # (Manual) Basophils # (Manual) PT INR D-Dimer ABG pH POC ABG pCO2 POC ABG pO2 ABG pO2 ABG HCO3 ABG O2 Saturation ABG Base Excess ABG Hemoglobin ABG Oxyhemoglobin ABG Potassium ABG Glucose Oxyhemoglobin Carboxyhemoglobin Sodium Potassium Chloride Carbon Dioxide BUN Creatinine Glucose POC Glucose 128 H 128 H 115 H Calcium Ferritin Total Bilirubin Alkaline Phosphatase Lactate Dehydrogenase Total Creatine Kinase CK-MB (CK-2) Rel Index Troponin T C-Reactive Protein Total Protein Albumin Prealbumin LDL Cholesterol Direct HDL Cholesterol Arterial Blood Glucose Arterial Blood Ionized Calcium Urine WBC (Auto) 03/19/20 03/19/20 03/19/20 08:05 08:05 11:56 WBC 16.8 H RBC 3.36 L Hgb 9.4 L Hct 28.8 L MCV MCH RDW 17.4 H Plt Count 567 H Lymph % (Auto) 7.8 L [place] % (Auto) Lymph # (Auto) [place] # (Auto) 1.2 H Seg Neutrophils % 83.5 H Seg Neuts % (Manual) Lymphocytes % (Manual) Monocytes % (Manual) Basophils % (Manual) Seg Neutrophils # 14.1 H Seg Neutrophils # Man Lymphocytes # (Manual) Monocytes # (Manual) Eosinophils # (Manual) Basophils # (Manual) PT INR D-Dimer ABG pH POC ABG pCO2 POC ABG pO2 ABG pO2 ABG HCO3 ABG O2 Saturation ABG Base Excess ABG Hemoglobin ABG Oxyhemoglobin ABG Potassium ABG Glucose Oxyhemoglobin Carboxyhemoglobin Sodium Potassium Chloride Carbon Dioxide 36 H BUN Creatinine < 0.2 L Glucose 135 H POC Glucose 128 H Calcium Ferritin Total Bilirubin Alkaline Phosphatase Lactate Dehydrogenase Total Creatine Kinase CK-MB (CK-2) Rel Index Troponin T C-Reactive Protein Total Protein Albumin Prealbumin LDL Cholesterol Direct HDL Cholesterol Arterial Blood Glucose Arterial Blood Ionized Calcium Urine WBC (Auto) 03/19/20 03/20/20 03/20/20 23:59 05:12 16:52 WBC RBC Hgb Hct MCV MCH RDW Plt Count Lymph % (Auto) [place]elope % (Auto) Lymph # (Auto) [place]elope # (Auto) Seg Neutrophils % Seg Neuts % (Manual) Lymphocytes % (Manual) Monocytes % (Manual) Basophils % (Manual) Seg Neutrophils # Seg Neutrophils # Man Lymphocytes # (Manual) Monocytes # (Manual) Eosinophils # (Manual) Basophils # (Manual) PT INR D-Dimer ABG pH POC ABG pCO2 POC ABG pO2 ABG pO2 ABG HCO3 ABG O2 Saturation ABG Base Excess ABG Hemoglobin ABG Oxyhemoglobin ABG Potassium ABG Glucose Oxyhemoglobin Carboxyhemoglobin Sodium Potassium Chloride Carbon Dioxide BUN Creatinine Glucose POC Glucose 120 H 131 H 124 H Calcium Ferritin Total Bilirubin Alkaline Phosphatase Lactate Dehydrogenase Total Creatine Kinase CK-MB (CK-2) Rel Index Troponin T C-Reactive Protein Total Protein Albumin Prealbumin LDL Cholesterol Direct HDL Cholesterol Arterial Blood Glucose Arterial Blood Ionized Calcium Urine WBC (Auto) 03/20/20 03/21/20 03/21/20 23:35 04:50 07:35 WBC 15.2 H RBC 3.39 L Hgb 9.4 L Hct 29.4 L MCV MCH RDW 17.6 H Plt Count 518 H Lymph % (Auto) [place] % (Auto) Lymph # (Auto) [place] # (Auto) Seg Neutrophils % Seg Neuts % (Manual) 83.0 H Lymphocytes % (Manual) 10.0 L Monocytes % (Manual) Basophils % (Manual) 2.0 H Seg Neutrophils # Seg Neutrophils # Man 12.6 H Lymphocytes # (Manual) Monocytes # (Manual) Eosinophils # (Manual) Basophils # (Manual) 0.3 H PT INR D-Dimer ABG pH POC ABG pCO2 POC ABG pO2 ABG pO2 ABG HCO3 ABG O2 Saturation ABG Base Excess ABG Hemoglobin ABG Oxyhemoglobin ABG Potassium ABG Glucose Oxyhemoglobin Carboxyhemoglobin Sodium Potassium Chloride Carbon Dioxide BUN Creatinine Glucose POC Glucose 125 H 127 H Calcium Ferritin Total Bilirubin Alkaline Phosphatase Lactate Dehydrogenase Total Creatine Kinase CK-MB (CK-2) Rel Index Troponin T C-Reactive Protein Total Protein Albumin Prealbumin LDL Cholesterol Direct HDL Cholesterol Arterial Blood Glucose Arterial Blood Ionized Calcium Urine WBC (Auto) 03/21/20 03/21/20 03/21/20 07:35 11:45 17:22 WBC RBC Hgb Hct MCV MCH RDW Plt Count Lymph % (Auto) [place] % (Auto) Lymph # (Auto) [place] # (Auto) Seg Neutrophils % Seg Neuts % (Manual) Lymphocytes % (Manual) Monocytes % (Manual) Basophils % (Manual) Seg Neutrophils # Seg Neutrophils # Man Lymphocytes # (Manual) Monocytes # (Manual) Eosinophils # (Manual) Basophils # (Manual) PT INR D-Dimer ABG pH POC ABG pCO2 POC ABG pO2 ABG pO2 ABG HCO3 ABG O2 Saturation ABG Base Excess ABG Hemoglobin ABG Oxyhemoglobin ABG Potassium ABG Glucose Oxyhemoglobin Carboxyhemoglobin Sodium 136 L Potassium Chloride 97.7 L Carbon Dioxide 32 H BUN Creatinine < 0.2 L Glucose 103 H POC Glucose 126 H 120 H Calcium Ferritin Total Bilirubin Alkaline Phosphatase Lactate Dehydrogenase Total Creatine Kinase CK-MB (CK-2) Rel Index Troponin T C-Reactive Protein Total Protein Albumin Prealbumin LDL Cholesterol Direct HDL Cholesterol Arterial Blood Glucose Arterial Blood Ionized Calcium Urine WBC (Auto) 03/22/20 03/22/20 03/22/20 05:09 06:34 06:34 WBC 17.5 H RBC 3.52 L Hgb 10.0 L Hct 30.7 L MCV MCH RDW 17.5 H Plt Count 499 H Lymph % (Auto) [place] % (Auto) Lymph # (Auto) [place] # (Auto) Seg Neutrophils % Seg Neuts % (Manual) 80.0 H Lymphocytes % (Manual) 10.0 L Monocytes % (Manual) Basophils % (Manual) Seg Neutrophils # Seg Neutrophils # Man 14.0 H Lymphocytes # (Manual) Monocytes # (Manual) Eosinophils # (Manual) Basophils # (Manual) PT INR D-Dimer ABG pH POC ABG pCO2 POC ABG pO2 ABG pO2 ABG HCO3 ABG O2 Saturation ABG Base Excess ABG Hemoglobin ABG Oxyhemoglobin ABG Potassium ABG Glucose Oxyhemoglobin Carboxyhemoglobin Sodium Potassium Chloride 96.6 L Carbon Dioxide 38 H BUN Creatinine < 0.2 L Glucose 139 H POC Glucose 125 H Calcium Ferritin Total Bilirubin Alkaline Phosphatase Lactate Dehydrogenase Total Creatine Kinase CK-MB (CK-2) Rel Index Troponin T C-Reactive Protein Total Protein Albumin Prealbumin LDL Cholesterol Direct HDL Cholesterol Arterial Blood Glucose Arterial Blood Ionized Calcium Urine WBC (Auto) 03/22/20 03/22/20 03/22/20 11:45 18:00 23:32 WBC RBC Hgb Hct MCV MCH RDW Plt Count Lymph % (Auto) [place] % (Auto) Lymph # (Auto) [place] # (Auto) Seg Neutrophils % Seg Neuts % (Manual) Lymphocytes % (Manual) Monocytes % (Manual) Basophils % (Manual) Seg Neutrophils # Seg Neutrophils # Man Lymphocytes # (Manual) Monocytes # (Manual) Eosinophils # (Manual) Basophils # (Manual) PT INR D-Dimer ABG pH POC ABG pCO2 POC ABG pO2 ABG pO2 ABG HCO3 ABG O2 Saturation ABG Base Excess ABG Hemoglobin ABG Oxyhemoglobin ABG Potassium ABG Glucose Oxyhemoglobin Carboxyhemoglobin Sodium Potassium Chloride Carbon Dioxide BUN Creatinine Glucose POC Glucose 135 H 133 H Calcium Ferritin Total Bilirubin Alkaline Phosphatase Lactate Dehydrogenase Total Creatine Kinase CK-MB (CK-2) Rel Index Troponin T 0.113 H* C-Reactive Protein Total Protein Albumin Prealbumin LDL Cholesterol Direct HDL Cholesterol Arterial Blood Glucose Arterial Blood Ionized Calcium Urine WBC (Auto) 03/23/20 03/23/20 03/23/20 01:47 06:21 07:57 WBC RBC Hgb Hct MCV MCH RDW Plt Count Lymph % (Auto) [place] % (Auto) Lymph # (Auto) [place] # (Auto) Seg Neutrophils % Seg Neuts % (Manual) Lymphocytes % (Manual) Monocytes % (Manual) Basophils % (Manual) Seg Neutrophils # Seg Neutrophils # Man Lymphocytes # (Manual) Monocytes # (Manual) Eosinophils # (Manual) Basophils # (Manual) PT INR D-Dimer ABG pH POC ABG pCO2 POC ABG pO2 ABG pO2 ABG HCO3 ABG O2 Saturation ABG Base Excess ABG Hemoglobin ABG Oxyhemoglobin ABG Potassium ABG Glucose Oxyhemoglobin Carboxyhemoglobin Sodium Potassium Chloride Carbon Dioxide BUN Creatinine Glucose POC Glucose 130 H Calcium Ferritin Total Bilirubin Alkaline Phosphatase Lactate Dehydrogenase Total Creatine Kinase CK-MB (CK-2) Rel Index Troponin T 0.143 H* D 0.105 H* D C-Reactive Protein Total Protein Albumin Prealbumin LDL Cholesterol Direct HDL Cholesterol Arterial Blood Glucose Arterial Blood Ionized Calcium Urine WBC (Auto) 03/23/20 03/24/20 03/24/20 12:02 05:33 07:15 WBC 18.0 H RBC Hgb 11.0 L Hct 34.0 L MCV MCH RDW 17.4 H Plt Count 520 H Lymph % (Auto) [place] % (Auto) Lymph # (Auto) [place] # (Auto) Seg Neutrophils % Seg Neuts % (Manual) 88.0 H Lymphocytes % (Manual) 7.0 L Monocytes % (Manual) Basophils % (Manual) Seg Neutrophils # Seg Neutrophils # Man 15.8 H Lymphocytes # (Manual) Monocytes # (Manual) Eosinophils # (Manual) Basophils # (Manual) PT INR D-Dimer ABG pH POC ABG pCO2 POC ABG pO2 ABG pO2 ABG HCO3 ABG O2 Saturation ABG Base Excess ABG Hemoglobin ABG Oxyhemoglobin ABG Potassium ABG Glucose Oxyhemoglobin Carboxyhemoglobin Sodium Potassium Chloride Carbon Dioxide BUN Creatinine Glucose POC Glucose 137 H 112 H Calcium Ferritin Total Bilirubin Alkaline Phosphatase Lactate Dehydrogenase Total Creatine Kinase CK-MB (CK-2) Rel Index Troponin T C-Reactive Protein Total Protein Albumin Prealbumin LDL Cholesterol Direct HDL Cholesterol Arterial Blood Glucose Arterial Blood Ionized Calcium Urine WBC (Auto) 03/24/20 03/24/20 03/24/20 07:15 11:22 23:30 WBC RBC Hgb Hct MCV MCH RDW Plt Count Lymph % (Auto) [place] % (Auto) Lymph # (Auto) [place] # (Auto) Seg Neutrophils % Seg Neuts % (Manual) Lymphocytes % (Manual) Monocytes % (Manual) Basophils % (Manual) Seg Neutrophils # Seg Neutrophils # Man Lymphocytes # (Manual) Monocytes # (Manual) Eosinophils # (Manual) Basophils # (Manual) PT INR D-Dimer ABG pH POC ABG pCO2 POC ABG pO2 ABG pO2 ABG HCO3 ABG O2 Saturation ABG Base Excess ABG Hemoglobin ABG Oxyhemoglobin ABG Potassium ABG Glucose Oxyhemoglobin Carboxyhemoglobin Sodium Potassium Chloride 96.6 L Carbon Dioxide 38 H BUN Creatinine < 0.2 L Glucose 141 H POC Glucose 130 H 120 H Calcium Ferritin Total Bilirubin Alkaline Phosphatase Lactate Dehydrogenase Total Creatine Kinase CK-MB (CK-2) Rel Index Troponin T C-Reactive Protein Total Protein Albumin Prealbumin LDL Cholesterol Direct HDL Cholesterol Arterial Blood Glucose Arterial Blood Ionized Calcium Urine WBC (Auto) 03/25/20 03/25/20 03/25/20 05:48 17:53 23:18 WBC RBC Hgb Hct MCV MCH RDW Plt Count Lymph % (Auto) [place] % (Auto) Lymph # (Auto) [place] # (Auto) Seg Neutrophils % Seg Neuts % (Manual) Lymphocytes % (Manual) Monocytes % (Manual) Basophils % (Manual) Seg Neutrophils # Seg Neutrophils # Man Lymphocytes # (Manual) Monocytes # (Manual) Eosinophils # (Manual) Basophils # (Manual) PT INR D-Dimer ABG pH POC ABG pCO2 POC ABG pO2 ABG pO2 ABG HCO3 ABG O2 Saturation ABG Base Excess ABG Hemoglobin ABG Oxyhemoglobin ABG Potassium ABG Glucose Oxyhemoglobin Carboxyhemoglobin Sodium Potassium Chloride Carbon Dioxide BUN Creatinine Glucose POC Glucose 124 H 109 H 131 H Calcium Ferritin Total Bilirubin Alkaline Phosphatase Lactate Dehydrogenase Total Creatine Kinase CK-MB (CK-2) Rel Index Troponin T C-Reactive Protein Total Protein Albumin Prealbumin LDL Cholesterol Direct HDL Cholesterol Arterial Blood Glucose Arterial Blood Ionized Calcium Urine WBC (Auto) 03/26/20 03/26/20 03/26/20 05:21 08:49 08:49 WBC 19.7 H RBC Hgb 10.7 L Hct 33.5 L MCV MCH 27 L RDW 17.1 H Plt Count 480 H Lymph % (Auto) 5.7 L [place] % (Auto) Lymph # (Auto) 1.1 L [place] # (Auto) 1.2 H Seg Neutrophils % 87.7 H Seg Neuts % (Manual) Lymphocytes % (Manual) Monocytes % (Manual) Basophils % (Manual) Seg Neutrophils # 17.2 H Seg Neutrophils # Man Lymphocytes # (Manual) Monocytes # (Manual) Eosinophils # (Manual) Basophils # (Manual) PT INR D-Dimer ABG pH POC ABG pCO2 POC ABG pO2 ABG pO2 ABG HCO3 ABG O2 Saturation ABG Base Excess ABG Hemoglobin ABG Oxyhemoglobin ABG Potassium ABG Glucose Oxyhemoglobin Carboxyhemoglobin Sodium Potassium Chloride 97.2 L Carbon Dioxide 36 H BUN Creatinine < 0.2 L Glucose 127 H POC Glucose 116 H Calcium Ferritin Total Bilirubin Alkaline Phosphatase Lactate Dehydrogenase Total Creatine Kinase CK-MB (CK-2) Rel Index Troponin T C-Reactive Protein Total Protein Albumin Prealbumin LDL Cholesterol Direct HDL Cholesterol Arterial Blood Glucose Arterial Blood Ionized Calcium Urine WBC (Auto) 03/26/20 03/26/20 03/26/20 11:38 18:44 23:06 WBC RBC Hgb Hct MCV MCH RDW Plt Count Lymph % (Auto) [place] % (Auto) Lymph # (Auto) [place] # (Auto) Seg Neutrophils % Seg Neuts % (Manual) Lymphocytes % (Manual) Monocytes % (Manual) Basophils % (Manual) Seg Neutrophils # Seg Neutrophils # Man Lymphocytes # (Manual) Monocytes # (Manual) Eosinophils # (Manual) Basophils # (Manual) PT INR D-Dimer ABG pH POC ABG pCO2 POC ABG pO2 ABG pO2 ABG HCO3 ABG O2 Saturation ABG Base Excess ABG Hemoglobin ABG Oxyhemoglobin ABG Potassium ABG Glucose Oxyhemoglobin Carboxyhemoglobin Sodium Potassium Chloride Carbon Dioxide BUN Creatinine Glucose POC Glucose 120 H 111 H 134 H Calcium Ferritin Total Bilirubin Alkaline Phosphatase Lactate Dehydrogenase Total Creatine Kinase CK-MB (CK-2) Rel Index Troponin T C-Reactive Protein Total Protein Albumin Prealbumin LDL Cholesterol Direct HDL Cholesterol Arterial Blood Glucose Arterial Blood Ionized Calcium Urine WBC (Auto) 03/27/20 03/27/20 03/27/20 05:41 05:59 05:59 WBC 18.6 H RBC Hgb 10.1 L Hct 31.4 L MCV MCH RDW 17.2 H Plt Count Lymph % (Auto) 8.0 L [place] % (Auto) Lymph # (Auto) [place] # (Auto) 1.2 H Seg Neutrophils % 84.7 H Seg Neuts % (Manual) Lymphocytes % (Manual) Monocytes % (Manual) Basophils % (Manual) Seg Neutrophils # 15.8 H Seg Neutrophils # Man Lymphocytes # (Manual) Monocytes # (Manual) Eosinophils # (Manual) Basophils # (Manual) PT INR D-Dimer ABG pH POC ABG pCO2 POC ABG pO2 ABG pO2 ABG HCO3 ABG O2 Saturation ABG Base Excess ABG Hemoglobin ABG Oxyhemoglobin ABG Potassium ABG Glucose Oxyhemoglobin Carboxyhemoglobin Sodium Potassium Chloride Carbon Dioxide 34 H BUN Creatinine < 0.2 L Glucose 127 H POC Glucose 129 H Calcium Ferritin Total Bilirubin Alkaline Phosphatase Lactate Dehydrogenase Total Creatine Kinase CK-MB (CK-2) Rel Index Troponin T C-Reactive Protein Total Protein Albumin Prealbumin LDL Cholesterol Direct HDL Cholesterol Arterial Blood Glucose Arterial Blood Ionized Calcium Urine WBC (Auto) 03/27/20 03/27/20 03/28/20 17:28 23:22 05:23 WBC RBC Hgb Hct MCV MCH RDW Plt Count Lymph % (Auto) [place] % (Auto) Lymph # (Auto) [place] # (Auto) Seg Neutrophils % Seg Neuts % (Manual) Lymphocytes % (Manual) Monocytes % (Manual) Basophils % (Manual) Seg Neutrophils # Seg Neutrophils # Man Lymphocytes # (Manual) Monocytes # (Manual) Eosinophils # (Manual) Basophils # (Manual) PT INR D-Dimer ABG pH POC ABG pCO2 POC ABG pO2 ABG pO2 ABG HCO3 ABG O2 Saturation ABG Base Excess ABG Hemoglobin ABG Oxyhemoglobin ABG Potassium ABG Glucose Oxyhemoglobin Carboxyhemoglobin Sodium Potassium Chloride Carbon Dioxide BUN Creatinine Glucose POC Glucose 108 H 119 H 129 H Calcium Ferritin Total Bilirubin Alkaline Phosphatase Lactate Dehydrogenase Total Creatine Kinase CK-MB (CK-2) Rel Index Troponin T C-Reactive Protein Total Protein Albumin Prealbumin LDL Cholesterol Direct HDL Cholesterol Arterial Blood Glucose Arterial Blood Ionized Calcium Urine WBC (Auto) 03/28/20 03/28/20 03/28/20 10:28 10:28 11:36 WBC 23.6 H RBC 3.62 L Hgb 10.0 L Hct 30.8 L MCV MCH RDW 16.4 H Plt Count Lymph % (Auto) [place] % (Auto) Lymph # (Auto) [place] # (Auto) Seg Neutrophils % Seg Neuts % (Manual) 89.0 H Lymphocytes % (Manual) 5.0 L Monocytes % (Manual) Basophils % (Manual) Seg Neutrophils # Seg Neutrophils # Man 21.0 H Lymphocytes # (Manual) Monocytes # (Manual) 1.2 H Eosinophils # (Manual) Basophils # (Manual) 0.2 H PT INR D-Dimer ABG pH POC ABG pCO2 POC ABG pO2 ABG pO2 ABG HCO3 ABG O2 Saturation ABG Base Excess ABG Hemoglobin ABG Oxyhemoglobin ABG Potassium ABG Glucose Oxyhemoglobin Carboxyhemoglobin Sodium 134 L Potassium Chloride 94.2 L Carbon Dioxide 35 H BUN Creatinine < 0.2 L Glucose 134 H POC Glucose Calcium Ferritin Total Bilirubin Alkaline Phosphatase Lactate Dehydrogenase Total Creatine Kinase CK-MB (CK-2) Rel Index Troponin T C-Reactive Protein Total Protein Albumin Prealbumin LDL Cholesterol Direct HDL Cholesterol Arterial Blood Glucose Arterial Blood Ionized Calcium Urine WBC (Auto) 39.0 H 03/28/20 03/28/20 03/28/20 11:51 17:08 17:17 WBC RBC Hgb Hct MCV MCH RDW Plt Count Lymph % (Auto) [place] % (Auto) Lymph # (Auto) [place] # (Auto) Seg Neutrophils % Seg Neuts % (Manual) Lymphocytes % (Manual) Monocytes % (Manual) Basophils % (Manual) Seg Neutrophils # Seg Neutrophils # Man Lymphocytes # (Manual) Monocytes # (Manual) Eosinophils # (Manual) Basophils # (Manual) PT INR D-Dimer ABG pH POC ABG pCO2 POC ABG pO2 ABG pO2 ABG HCO3 ABG O2 Saturation ABG Base Excess ABG Hemoglobin ABG Oxyhemoglobin ABG Potassium ABG Glucose Oxyhemoglobin Carboxyhemoglobin Sodium Potassium Chloride Carbon Dioxide BUN Creatinine Glucose POC Glucose 123 H 112 H Calcium Ferritin Total Bilirubin Alkaline Phosphatase Lactate Dehydrogenase Total Creatine Kinase 47 L CK-MB (CK-2) Rel Index 4.6 H Troponin T 0.090 H C-Reactive Protein Total Protein Albumin Prealbumin LDL Cholesterol Direct HDL Cholesterol Arterial Blood Glucose Arterial Blood Ionized Calcium Urine WBC (Auto) 03/28/20 03/29/20 03/29/20 23:22 05:22 10:58 WBC RBC Hgb Hct MCV MCH RDW Plt Count Lymph % (Auto) [place] % (Auto) Lymph # (Auto) [place] # (Auto) Seg Neutrophils % Seg Neuts % (Manual) Lymphocytes % (Manual) Monocytes % (Manual) Basophils % (Manual) Seg Neutrophils # Seg Neutrophils # Man Lymphocytes # (Manual) Monocytes # (Manual) Eosinophils # (Manual) Basophils # (Manual) PT INR D-Dimer ABG pH POC ABG pCO2 POC ABG pO2 ABG pO2 ABG HCO3 ABG O2 Saturation ABG Base Excess ABG Hemoglobin ABG Oxyhemoglobin ABG Potassium ABG Glucose Oxyhemoglobin Carboxyhemoglobin Sodium Potassium Chloride Carbon Dioxide BUN Creatinine Glucose POC Glucose 122 H 116 H 133 H Calcium Ferritin Total Bilirubin Alkaline Phosphatase Lactate Dehydrogenase Total Creatine Kinase CK-MB (CK-2) Rel Index Troponin T C-Reactive Protein Total Protein Albumin Prealbumin LDL Cholesterol Direct HDL Cholesterol Arterial Blood Glucose Arterial Blood Ionized Calcium Urine WBC (Auto) 03/29/20 03/29/20 03/30/20 17:18 23:14 04:57 WBC RBC Hgb Hct MCV MCH RDW Plt Count Lymph % (Auto) [place] % (Auto) Lymph # (Auto) [place] # (Auto) Seg Neutrophils % Seg Neuts % (Manual) Lymphocytes % (Manual) Monocytes % (Manual) Basophils % (Manual) Seg Neutrophils # Seg Neutrophils # Man Lymphocytes # (Manual) Monocytes # (Manual) Eosinophils # (Manual) Basophils # (Manual) PT INR D-Dimer ABG pH POC ABG pCO2 POC ABG pO2 ABG pO2 ABG HCO3 ABG O2 Saturation ABG Base Excess ABG Hemoglobin ABG Oxyhemoglobin ABG Potassium ABG Glucose Oxyhemoglobin Carboxyhemoglobin Sodium Potassium Chloride Carbon Dioxide BUN Creatinine Glucose POC Glucose 111 H 114 H 130 H Calcium Ferritin Total Bilirubin Alkaline Phosphatase Lactate Dehydrogenase Total Creatine Kinase CK-MB (CK-2) Rel Index Troponin T C-Reactive Protein Total Protein Albumin Prealbumin LDL Cholesterol Direct HDL Cholesterol Arterial Blood Glucose Arterial Blood Ionized Calcium Urine WBC (Auto) 03/30/20 03/30/20 03/30/20 11:38 14:47 14:47 WBC 19.9 H RBC Hgb 10.9 L Hct 34.4 L MCV MCH 27 L RDW 16.5 H Plt Count 441 H Lymph % (Auto) 6.4 L [place] % (Auto) Lymph # (Auto) [place] # (Auto) 1.4 H Seg Neutrophils % 86.1 H Seg Neuts % (Manual) Lymphocytes % (Manual) Monocytes % (Manual) Basophils % (Manual) Seg Neutrophils # 17.1 H Seg Neutrophils # Man Lymphocytes # (Manual) Monocytes # (Manual) Eosinophils # (Manual) Basophils # (Manual) PT INR D-Dimer ABG pH POC ABG pCO2 POC ABG pO2 ABG pO2 ABG HCO3 ABG O2 Saturation ABG Base Excess ABG Hemoglobin ABG Oxyhemoglobin ABG Potassium ABG Glucose Oxyhemoglobin Carboxyhemoglobin Sodium 133 L Potassium Chloride 94.6 L Carbon Dioxide 33 H BUN Creatinine < 0.2 L Glucose 194 H POC Glucose 139 H Calcium Ferritin Total Bilirubin Alkaline Phosphatase Lactate Dehydrogenase Total Creatine Kinase CK-MB (CK-2) Rel Index Troponin T C-Reactive Protein Total Protein Albumin 2.8 L Prealbumin LDL Cholesterol Direct HDL Cholesterol Arterial Blood Glucose Arterial Blood Ionized Calcium Urine WBC (Auto) 03/30/20 03/31/20 03/31/20 17:07 05:02 15:21 WBC RBC Hgb Hct MCV MCH RDW Plt Count Lymph % (Auto) [place] % (Auto) Lymph # (Auto) [place] # (Auto) Seg Neutrophils % Seg Neuts % (Manual) Lymphocytes % (Manual) Monocytes % (Manual) Basophils % (Manual) Seg Neutrophils # Seg Neutrophils # Man Lymphocytes # (Manual) Monocytes # (Manual) Eosinophils # (Manual) Basophils # (Manual) PT INR D-Dimer ABG pH POC ABG pCO2 POC ABG pO2 ABG pO2 ABG HCO3 ABG O2 Saturation ABG Base Excess ABG Hemoglobin ABG Oxyhemoglobin ABG Potassium ABG Glucose Oxyhemoglobin Carboxyhemoglobin Sodium Potassium Chloride Carbon Dioxide BUN Creatinine Glucose POC Glucose 163 H 108 H 110 H Calcium Ferritin Total Bilirubin Alkaline Phosphatase Lactate Dehydrogenase Total Creatine Kinase CK-MB (CK-2) Rel Index Troponin T C-Reactive Protein Total Protein Albumin Prealbumin LDL Cholesterol Direct HDL Cholesterol Arterial Blood Glucose Arterial Blood Ionized Calcium Urine WBC (Auto) 03/31/20 03/31/20 04/01/20 17:58 23:19 05:09 WBC RBC Hgb Hct MCV MCH RDW Plt Count Lymph % (Auto) [place] % (Auto) Lymph # (Auto) [place] # (Auto) Seg Neutrophils % Seg Neuts % (Manual) Lymphocytes % (Manual) Monocytes % (Manual) Basophils % (Manual) Seg Neutrophils # Seg Neutrophils # Man Lymphocytes # (Manual) Monocytes # (Manual) Eosinophils # (Manual) Basophils # (Manual) PT INR D-Dimer ABG pH POC ABG pCO2 POC ABG pO2 ABG pO2 ABG HCO3 ABG O2 Saturation ABG Base Excess ABG Hemoglobin ABG Oxyhemoglobin ABG Potassium ABG Glucose Oxyhemoglobin Carboxyhemoglobin Sodium Potassium Chloride Carbon Dioxide BUN Creatinine Glucose POC Glucose 110 H 131 H 124 H Calcium Ferritin Total Bilirubin Alkaline Phosphatase Lactate Dehydrogenase Total Creatine Kinase CK-MB (CK-2) Rel Index Troponin T C-Reactive Protein Total Protein Albumin Prealbumin LDL Cholesterol Direct HDL Cholesterol Arterial Blood Glucose Arterial Blood Ionized Calcium Urine WBC (Auto) 04/01/20 04/01/20 04/01/20 11:50 17:01 23:21 WBC RBC Hgb Hct MCV MCH RDW Plt Count Lymph % (Auto) [place] % (Auto) Lymph # (Auto) [place] # (Auto) Seg Neutrophils % Seg Neuts % (Manual) Lymphocytes % (Manual) Monocytes % (Manual) Basophils % (Manual) Seg Neutrophils # Seg Neutrophils # Man Lymphocytes # (Manual) Monocytes # (Manual) Eosinophils # (Manual) Basophils # (Manual) PT INR D-Dimer ABG pH POC ABG pCO2 POC ABG pO2 ABG pO2 ABG HCO3 ABG O2 Saturation ABG Base Excess ABG Hemoglobin ABG Oxyhemoglobin ABG Potassium ABG Glucose Oxyhemoglobin Carboxyhemoglobin Sodium Potassium Chloride Carbon Dioxide BUN Creatinine Glucose POC Glucose 136 H 115 H 124 H Calcium Ferritin Total Bilirubin Alkaline Phosphatase Lactate Dehydrogenase Total Creatine Kinase CK-MB (CK-2) Rel Index Troponin T C-Reactive Protein Total Protein Albumin Prealbumin LDL Cholesterol Direct HDL Cholesterol Arterial Blood Glucose Arterial Blood Ionized Calcium Urine WBC (Auto) 04/02/20 04/02/20 04/02/20 05:27 11:58 17:58 WBC RBC Hgb Hct MCV MCH RDW Plt Count Lymph % (Auto) [place] % (Auto) Lymph # (Auto) [place] # (Auto) Seg Neutrophils % Seg Neuts % (Manual) Lymphocytes % (Manual) Monocytes % (Manual) Basophils % (Manual) Seg Neutrophils # Seg Neutrophils # Man Lymphocytes # (Manual) Monocytes # (Manual) Eosinophils # (Manual) Basophils # (Manual) PT INR D-Dimer ABG pH POC ABG pCO2 POC ABG pO2 ABG pO2 ABG HCO3 ABG O2 Saturation ABG Base Excess ABG Hemoglobin ABG Oxyhemoglobin ABG Potassium ABG Glucose Oxyhemoglobin Carboxyhemoglobin Sodium Potassium Chloride Carbon Dioxide BUN Creatinine Glucose POC Glucose 117 H 133 H 122 H Calcium Ferritin Total Bilirubin Alkaline Phosphatase Lactate Dehydrogenase Total Creatine Kinase CK-MB (CK-2) Rel Index Troponin T C-Reactive Protein Total Protein Albumin Prealbumin LDL Cholesterol Direct HDL Cholesterol Arterial Blood Glucose Arterial Blood Ionized Calcium Urine WBC (Auto) 04/02/20 04/03/20 04/03/20 23:12 05:11 11:11 WBC RBC Hgb Hct MCV MCH RDW Plt Count Lymph % (Auto) [place] % (Auto) Lymph # (Auto) [place] # (Auto) Seg Neutrophils % Seg Neuts % (Manual) Lymphocytes % (Manual) Monocytes % (Manual) Basophils % (Manual) Seg Neutrophils # Seg Neutrophils # Man Lymphocytes # (Manual) Monocytes # (Manual) Eosinophils # (Manual) Basophils # (Manual) PT INR D-Dimer ABG pH POC ABG pCO2 POC ABG pO2 ABG pO2 ABG HCO3 ABG O2 Saturation ABG Base Excess ABG Hemoglobin ABG Oxyhemoglobin ABG Potassium ABG Glucose Oxyhemoglobin Carboxyhemoglobin Sodium Potassium Chloride Carbon Dioxide BUN Creatinine Glucose POC Glucose 130 H 139 H 136 H Calcium Ferritin Total Bilirubin Alkaline Phosphatase Lactate Dehydrogenase Total Creatine Kinase CK-MB (CK-2) Rel Index Troponin T C-Reactive Protein Total Protein Albumin Prealbumin LDL Cholesterol Direct HDL Cholesterol Arterial Blood Glucose Arterial Blood Ionized Calcium Urine WBC (Auto) 04/03/20 04/03/2004/04/20 16:51 23:25 05:29 WBC RBC Hgb Hct MCV MCH RDW Plt Count Lymph % (Auto) [place] % (Auto) Lymph # (Auto) [place] # (Auto) Seg Neutrophils % Seg Neuts % (Manual) Lymphocytes % (Manual) Monocytes % (Manual) Basophils % (Manual) Seg Neutrophils # Seg Neutrophils # Man Lymphocytes # (Manual) Monocytes # (Manual) Eosinophils # (Manual) Basophils # (Manual) PT INR D-Dimer ABG pH POC ABG pCO2 POC ABG pO2 ABG pO2 ABG HCO3 ABG O2 Saturation ABG Base Excess ABG Hemoglobin ABG Oxyhemoglobin ABG Potassium ABG Glucose Oxyhemoglobin Carboxyhemoglobin Sodium Potassium Chloride Carbon Dioxide BUN Creatinine Glucose POC Glucose 118 H 111 H 126 H Calcium Ferritin Total Bilirubin Alkaline Phosphatase Lactate Dehydrogenase Total Creatine Kinase CK-MB (CK-2) Rel Index Troponin T C-Reactive Protein Total Protein Albumin Prealbumin LDL Cholesterol Direct HDL Cholesterol Arterial Blood Glucose Arterial Blood Ionized Calcium Urine WBC (Auto) 04/04/20 04/04/20 04/04/20 11:47 17:41 23:05 WBC RBC Hgb Hct MCV MCH RDW Plt Count Lymph % (Auto) [place]elope % (Auto) Lymph # (Auto) [place]elope # (Auto) Seg Neutrophils % Seg Neuts % (Manual) Lymphocytes % (Manual) Monocytes % (Manual) Basophils % (Manual) Seg Neutrophils # Seg Neutrophils # Man Lymphocytes # (Manual) Monocytes # (Manual) Eosinophils # (Manual) Basophils # (Manual) PT INR D-Dimer ABG pH POC ABG pCO2 POC ABG pO2 ABG pO2 ABG HCO3 ABG O2 Saturation ABG Base Excess ABG Hemoglobin ABG Oxyhemoglobin ABG Potassium ABG Glucose Oxyhemoglobin Carboxyhemoglobin Sodium Potassium Chloride Carbon Dioxide BUN Creatinine Glucose POC Glucose 123 H 120 H 119 H Calcium Ferritin Total Bilirubin Alkaline Phosphatase Lactate Dehydrogenase Total Creatine Kinase CK-MB (CK-2) Rel Index Troponin T C-Reactive Protein Total Protein Albumin Prealbumin LDL Cholesterol Direct HDL Cholesterol Arterial Blood Glucose Arterial Blood Ionized Calcium Urine WBC (Auto) 04/05/20 04/05/20 04/05/20 05:14 12:16 18:48 WBC RBC Hgb Hct MCV MCH RDW Plt Count Lymph % (Auto) [place] % (Auto) Lymph # (Auto) [place] # (Auto) Seg Neutrophils % Seg Neuts % (Manual) Lymphocytes % (Manual) Monocytes % (Manual) Basophils % (Manual) Seg Neutrophils # Seg Neutrophils # Man Lymphocytes # (Manual) Monocytes # (Manual) Eosinophils # (Manual) Basophils # (Manual) PT INR D-Dimer ABG pH POC ABG pCO2 POC ABG pO2 ABG pO2 ABG HCO3 ABG O2 Saturation ABG Base Excess ABG Hemoglobin ABG Oxyhemoglobin ABG Potassium ABG Glucose Oxyhemoglobin Carboxyhemoglobin Sodium Potassium Chloride Carbon Dioxide BUN Creatinine Glucose POC Glucose 123 H 148 H 106 H Calcium Ferritin Total Bilirubin Alkaline Phosphatase Lactate Dehydrogenase Total Creatine Kinase CK-MB (CK-2) Rel Index Troponin T C-Reactive Protein Total Protein Albumin Prealbumin LDL Cholesterol Direct HDL Cholesterol Arterial Blood Glucose Arterial Blood Ionized Calcium Urine WBC (Auto) 04/06/20 04/06/20 04/06/20 00:47 03:26 08:24 WBC RBC Hgb Hct MCV MCH RDW Plt Count Lymph % (Auto) [place] % (Auto) Lymph # (Auto) [place] # (Auto) Seg Neutrophils % Seg Neuts % (Manual) Lymphocytes % (Manual) Monocytes % (Manual) Basophils % (Manual) Seg Neutrophils # Seg Neutrophils # Man Lymphocytes # (Manual) Monocytes # (Manual) Eosinophils # (Manual) Basophils # (Manual) PT INR D-Dimer ABG pH POC ABG pCO2 POC ABG pO2 ABG pO2 ABG HCO3 ABG O2 Saturation ABG Base Excess ABG Hemoglobin ABG Oxyhemoglobin ABG Potassium ABG Glucose Oxyhemoglobin Carboxyhemoglobin Sodium Potassium Chloride Carbon Dioxide BUN Creatinine Glucose POC Glucose 129 H 134 H 131 H Calcium Ferritin Total Bilirubin Alkaline Phosphatase Lactate Dehydrogenase Total Creatine Kinase CK-MB (CK-2) Rel Index Troponin T C-Reactive Protein Total Protein Albumin Prealbumin LDL Cholesterol Direct HDL Cholesterol Arterial Blood Glucose Arterial Blood Ionized Calcium Urine WBC (Auto) 04/06/20 04/06/20 04/06/20 11:16 16:27 23:01 WBC RBC Hgb Hct MCV MCH RDW Plt Count Lymph % (Auto) [place] % (Auto) Lymph # (Auto) [place] # (Auto) Seg Neutrophils % Seg Neuts % (Manual) Lymphocytes % (Manual) Monocytes % (Manual) Basophils % (Manual) Seg Neutrophils # Seg Neutrophils # Man Lymphocytes # (Manual) Monocytes # (Manual) Eosinophils # (Manual) Basophils # (Manual) PT INR D-Dimer ABG pH POC ABG pCO2 POC ABG pO2 ABG pO2 ABG HCO3 ABG O2 Saturation ABG Base Excess ABG Hemoglobin ABG Oxyhemoglobin ABG Potassium ABG Glucose Oxyhemoglobin Carboxyhemoglobin Sodium Potassium Chloride Carbon Dioxide BUN Creatinine Glucose POC Glucose 131 H 107 H 125 H Calcium Ferritin Total Bilirubin Alkaline Phosphatase Lactate Dehydrogenase Total Creatine Kinase CK-MB (CK-2) Rel Index Troponin T C-Reactive Protein Total Protein Albumin Prealbumin LDL Cholesterol Direct HDL Cholesterol Arterial Blood Glucose Arterial Blood Ionized Calcium Urine WBC (Auto) 04/07/20 04/07/20 04/07/20 05:24 12:41 17:40 WBC RBC Hgb Hct MCV MCH RDW Plt Count Lymph % (Auto) [place] % (Auto) Lymph # (Auto) [place] # (Auto) Seg Neutrophils % Seg Neuts % (Manual) Lymphocytes % (Manual) Monocytes % (Manual) Basophils % (Manual) Seg Neutrophils # Seg Neutrophils # Man Lymphocytes # (Manual) Monocytes # (Manual) Eosinophils # (Manual) Basophils # (Manual) PT INR D-Dimer ABG pH POC ABG pCO2 POC ABG pO2 ABG pO2 ABG HCO3 ABG O2 Saturation ABG Base Excess ABG Hemoglobin ABG Oxyhemoglobin ABG Potassium ABG Glucose Oxyhemoglobin Carboxyhemoglobin Sodium Potassium Chloride Carbon Dioxide BUN Creatinine Glucose POC Glucose 125 H 145 H 123 H Calcium Ferritin Total Bilirubin Alkaline Phosphatase Lactate Dehydrogenase Total Creatine Kinase CK-MB (CK-2) Rel Index Troponin T C-Reactive Protein Total Protein Albumin Prealbumin LDL Cholesterol Direct HDL Cholesterol Arterial Blood Glucose Arterial Blood Ionized Calcium Urine WBC (Auto) 04/07/20 04/08/20 04/08/20 23:22 05:40 11:29 WBC RBC Hgb Hct MCV MCH RDW Plt Count Lymph % (Auto) [place] % (Auto) Lymph # (Auto) [place] # (Auto) Seg Neutrophils % Seg Neuts % (Manual) Lymphocytes % (Manual) Monocytes % (Manual) Basophils % (Manual) Seg Neutrophils # Seg Neutrophils # Man Lymphocytes # (Manual) Monocytes # (Manual) Eosinophils # (Manual) Basophils # (Manual) PT INR D-Dimer ABG pH POC ABG pCO2 POC ABG pO2 ABG pO2 ABG HCO3 ABG O2 Saturation ABG Base Excess ABG Hemoglobin ABG Oxyhemoglobin ABG Potassium ABG Glucose Oxyhemoglobin Carboxyhemoglobin Sodium Potassium Chloride Carbon Dioxide BUN Creatinine Glucose POC Glucose 133 H 125 H 116 H Calcium Ferritin Total Bilirubin Alkaline Phosphatase Lactate Dehydrogenase Total Creatine Kinase CK-MB (CK-2) Rel Index Troponin T C-Reactive Protein Total Protein Albumin Prealbumin LDL Cholesterol Direct HDL Cholesterol Arterial Blood Glucose Arterial Blood Ionized Calcium Urine WBC (Auto) 04/08/20 04/09/20 04/09/20 17:43 05:47 12:22 WBC RBC Hgb Hct MCV MCH RDW Plt Count Lymph % (Auto) [place] % (Auto) Lymph # (Auto) [place] # (Auto) Seg Neutrophils % Seg Neuts % (Manual) Lymphocytes % (Manual) Monocytes % (Manual) Basophils % (Manual) Seg Neutrophils # Seg Neutrophils # Man Lymphocytes # (Manual) Monocytes # (Manual) Eosinophils # (Manual) Basophils # (Manual) PT INR D-Dimer ABG pH POC ABG pCO2 POC ABG pO2 ABG pO2 ABG HCO3 ABG O2 Saturation ABG Base Excess ABG Hemoglobin ABG Oxyhemoglobin ABG Potassium ABG Glucose Oxyhemoglobin Carboxyhemoglobin Sodium Potassium Chloride Carbon Dioxide BUN Creatinine Glucose POC Glucose 123 H 108 H 116 H Calcium Ferritin Total Bilirubin Alkaline Phosphatase Lactate Dehydrogenase Total Creatine Kinase CK-MB (CK-2) Rel Index Troponin T C-Reactive Protein Total Protein Albumin Prealbumin LDL Cholesterol Direct HDL Cholesterol Arterial Blood Glucose Arterial Blood Ionized Calcium Urine WBC (Auto) 04/09/20 04/09/20 04/10/20 17:24 23:52 06:10 WBC RBC Hgb Hct MCV MCH RDW Plt Count Lymph % (Auto) [place] % (Auto) Lymph # (Auto) [place] # (Auto) Seg Neutrophils % Seg Neuts % (Manual) Lymphocytes % (Manual) Monocytes % (Manual) Basophils % (Manual) Seg Neutrophils # Seg Neutrophils # Man Lymphocytes # (Manual) Monocytes # (Manual) Eosinophils # (Manual) Basophils # (Manual) PT INR D-Dimer ABG pH POC ABG pCO2 POC ABG pO2 ABG pO2 ABG HCO3 ABG O2 Saturation ABG Base Excess ABG Hemoglobin ABG Oxyhemoglobin ABG Potassium ABG Glucose Oxyhemoglobin Carboxyhemoglobin Sodium Potassium Chloride Carbon Dioxide BUN Creatinine Glucose POC Glucose 108 H 126 H 122 H Calcium Ferritin Total Bilirubin Alkaline Phosphatase Lactate Dehydrogenase Total Creatine Kinase CK-MB (CK-2) Rel Index Troponin T C-Reactive Protein Total Protein Albumin Prealbumin LDL Cholesterol Direct HDL Cholesterol Arterial Blood Glucose Arterial Blood Ionized Calcium Urine WBC (Auto) 04/10/20 04/10/20 04/10/20 11:27 18:11 23:24 WBC RBC Hgb Hct MCV MCH RDW Plt Count Lymph % (Auto) [place] % (Auto) Lymph # (Auto) [place] # (Auto) Seg Neutrophils % Seg Neuts % (Manual) Lymphocytes % (Manual) Monocytes % (Manual) Basophils % (Manual) Seg Neutrophils # Seg Neutrophils # Man Lymphocytes # (Manual) Monocytes # (Manual) Eosinophils # (Manual) Basophils # (Manual) PT INR D-Dimer ABG pH POC ABG pCO2 POC ABG pO2 ABG pO2 ABG HCO3 ABG O2 Saturation ABG Base Excess ABG Hemoglobin ABG Oxyhemoglobin ABG Potassium ABG Glucose Oxyhemoglobin Carboxyhemoglobin Sodium Potassium Chloride Carbon Dioxide BUN Creatinine Glucose POC Glucose 129 H 125 H 107 H Calcium Ferritin Total Bilirubin Alkaline Phosphatase Lactate Dehydrogenase Total Creatine Kinase CK-MB (CK-2) Rel Index Troponin T C-Reactive Protein Total Protein Albumin Prealbumin LDL Cholesterol Direct HDL Cholesterol Arterial Blood Glucose Arterial Blood Ionized Calcium Urine WBC (Auto) 04/11/20 04/11/20 04/11/20 05:28 11:46 23:49 WBC RBC Hgb Hct MCV MCH RDW Plt Count Lymph % (Auto) [place] % (Auto) Lymph # (Auto) [place] # (Auto) Seg Neutrophils % Seg Neuts % (Manual) Lymphocytes % (Manual) Monocytes % (Manual) Basophils % (Manual) Seg Neutrophils # Seg Neutrophils # Man Lymphocytes # (Manual) Monocytes # (Manual) Eosinophils # (Manual) Basophils # (Manual) PT INR D-Dimer ABG pH POC ABG pCO2 POC ABG pO2 ABG pO2 ABG HCO3 ABG O2 Saturation ABG Base Excess ABG Hemoglobin ABG Oxyhemoglobin ABG Potassium ABG Glucose Oxyhemoglobin Carboxyhemoglobin Sodium Potassium Chloride Carbon Dioxide BUN Creatinine Glucose POC Glucose 122 H 122 H 116 H Calcium Ferritin Total Bilirubin Alkaline Phosphatase Lactate Dehydrogenase Total Creatine Kinase CK-MB (CK-2) Rel Index Troponin T C-Reactive Protein Total Protein Albumin Prealbumin LDL Cholesterol Direct HDL Cholesterol Arterial Blood Glucose Arterial Blood Ionized Calcium Urine WBC (Auto) 04/12/20 04/12/20 04/12/20 09:07 09:07 11:39 WBC 13.1 H RBC 3.59 L Hgb 9.5 L Hct 29.8 L MCV 83 L MCH 26 L RDW 16.6 H Plt Count 591 H Lymph % (Auto) [place] % (Auto) Lymph # (Auto) [place] # (Auto) Seg Neutrophils % Seg Neuts % (Manual) 86.0 H Lymphocytes % (Manual) 7.0 L Monocytes % (Manual) Basophils % (Manual) Seg Neutrophils # Seg Neutrophils # Man 11.3 H Lymphocytes # (Manual) 0.9 L Monocytes # (Manual) Eosinophils # (Manual) Basophils # (Manual) PT INR D-Dimer ABG pH POC ABG pCO2 POC ABG pO2 ABG pO2 ABG HCO3 ABG O2 Saturation ABG Base Excess ABG Hemoglobin ABG Oxyhemoglobin ABG Potassium ABG Glucose Oxyhemoglobin Carboxyhemoglobin Sodium Potassium Chloride Carbon Dioxide 36 H BUN Creatinine < 0.2 L Glucose 132 H POC Glucose 136 H Calcium Ferritin Total Bilirubin Alkaline Phosphatase Lactate Dehydrogenase Total Creatine Kinase CK-MB (CK-2) Rel Index Troponin T C-Reactive Protein Total Protein Albumin 2.7 L Prealbumin LDL Cholesterol Direct HDL Cholesterol Arterial Blood Glucose Arterial Blood Ionized Calcium Urine WBC (Auto) 04/12/20 04/12/20 04/13/20 18:13 23:07 05:45 WBC RBC Hgb Hct MCV MCH RDW Plt Count Lymph % (Auto) [place] % (Auto) Lymph # (Auto) [place] # (Auto) Seg Neutrophils % Seg Neuts % (Manual) Lymphocytes % (Manual) Monocytes % (Manual) Basophils % (Manual) Seg Neutrophils # Seg Neutrophils # Man Lymphocytes # (Manual) Monocytes # (Manual) Eosinophils # (Manual) Basophils # (Manual) PT INR D-Dimer ABG pH POC ABG pCO2 POC ABG pO2 ABG pO2 ABG HCO3 ABG O2 Saturation ABG Base Excess ABG Hemoglobin ABG Oxyhemoglobin ABG Potassium ABG Glucose Oxyhemoglobin Carboxyhemoglobin Sodium Potassium Chloride Carbon Dioxide BUN Creatinine Glucose POC Glucose 107 H 106 H 125 H Calcium Ferritin Total Bilirubin Alkaline Phosphatase Lactate Dehydrogenase Total Creatine Kinase CK-MB (CK-2) Rel Index Troponin T C-Reactive Protein Total Protein Albumin Prealbumin LDL Cholesterol Direct HDL Cholesterol Arterial Blood Glucose Arterial Blood Ionized Calcium Urine WBC (Auto) 04/13/20 04/13/20 04/13/20 11:18 17:56 23:33 WBC RBC Hgb Hct MCV MCH RDW Plt Count Lymph % (Auto) [place] % (Auto) Lymph # (Auto) [place] # (Auto) Seg Neutrophils % Seg Neuts % (Manual) Lymphocytes % (Manual) Monocytes % (Manual) Basophils % (Manual) Seg Neutrophils # Seg Neutrophils # Man Lymphocytes # (Manual) Monocytes # (Manual) Eosinophils # (Manual) Basophils # (Manual) PT INR D-Dimer ABG pH POC ABG pCO2 POC ABG pO2 ABG pO2 ABG HCO3 ABG O2 Saturation ABG Base Excess ABG Hemoglobin ABG Oxyhemoglobin ABG Potassium ABG Glucose Oxyhemoglobin Carboxyhemoglobin Sodium Potassium Chloride Carbon Dioxide BUN Creatinine Glucose POC Glucose 133 H 110 H 114 H Calcium Ferritin Total Bilirubin Alkaline Phosphatase Lactate Dehydrogenase Total Creatine Kinase CK-MB (CK-2) Rel Index Troponin T C-Reactive Protein Total Protein Albumin Prealbumin LDL Cholesterol Direct HDL Cholesterol Arterial Blood Glucose Arterial Blood Ionized Calcium Urine WBC (Auto) 04/14/20 04/14/20 04/14/20 05:58 11:45 17:48 WBC RBC Hgb Hct MCV MCH RDW Plt Count Lymph % (Auto) [place] % (Auto) Lymph # (Auto) [place] # (Auto) Seg Neutrophils % Seg Neuts % (Manual) Lymphocytes % (Manual) Monocytes % (Manual) Basophils % (Manual) Seg Neutrophils # Seg Neutrophils # Man Lymphocytes # (Manual) Monocytes # (Manual) Eosinophils # (Manual) Basophils # (Manual) PT INR D-Dimer ABG pH POC ABG pCO2 POC ABG pO2 ABG pO2 ABG HCO3 ABG O2 Saturation ABG Base Excess ABG Hemoglobin ABG Oxyhemoglobin ABG Potassium ABG Glucose Oxyhemoglobin Carboxyhemoglobin Sodium Potassium Chloride Carbon Dioxide BUN Creatinine Glucose POC Glucose 115 H 122 H 124 H Calcium Ferritin Total Bilirubin Alkaline Phosphatase Lactate Dehydrogenase Total Creatine Kinase CK-MB (CK-2) Rel Index Troponin T C-Reactive Protein Total Protein Albumin Prealbumin LDL Cholesterol Direct HDL Cholesterol Arterial Blood Glucose Arterial Blood Ionized Calcium Urine WBC (Auto) 04/15/20 04/15/20 04/15/20 00:11 05:38 11:31 WBC RBC Hgb Hct MCV MCH RDW Plt Count Lymph % (Auto) [place] % (Auto) Lymph # (Auto) [place] # (Auto) Seg Neutrophils % Seg Neuts % (Manual) Lymphocytes % (Manual) Monocytes % (Manual) Basophils % (Manual) Seg Neutrophils # Seg Neutrophils # Man Lymphocytes # (Manual) Monocytes # (Manual) Eosinophils # (Manual) Basophils # (Manual) PT INR D-Dimer ABG pH POC ABG pCO2 POC ABG pO2 ABG pO2 ABG HCO3 ABG O2 Saturation ABG Base Excess ABG Hemoglobin ABG Oxyhemoglobin ABG Potassium ABG Glucose Oxyhemoglobin Carboxyhemoglobin Sodium Potassium Chloride Carbon Dioxide BUN Creatinine Glucose POC Glucose 120 H 109 H 123 H Calcium Ferritin Total Bilirubin Alkaline Phosphatase Lactate Dehydrogenase Total Creatine Kinase CK-MB (CK-2) Rel Index Troponin T C-Reactive Protein Total Protein Albumin Prealbumin LDL Cholesterol Direct HDL Cholesterol Arterial Blood Glucose Arterial Blood Ionized Calcium Urine WBC (Auto) 04/15/20 04/16/20 04/16/20 17:35 06:00 11:29 WBC RBC Hgb Hct MCV MCH RDW Plt Count Lymph % (Auto) [place] % (Auto) Lymph # (Auto) [place] # (Auto) Seg Neutrophils % Seg Neuts % (Manual) Lymphocytes % (Manual) Monocytes % (Manual) Basophils % (Manual) Seg Neutrophils # Seg Neutrophils # Man Lymphocytes # (Manual) Monocytes # (Manual) Eosinophils # (Manual) Basophils # (Manual) PT INR D-Dimer ABG pH POC ABG pCO2 POC ABG pO2 ABG pO2 ABG HCO3 ABG O2 Saturation ABG Base Excess ABG Hemoglobin ABG Oxyhemoglobin ABG Potassium ABG Glucose Oxyhemoglobin Carboxyhemoglobin Sodium Potassium Chloride Carbon Dioxide BUN Creatinine Glucose POC Glucose 111 H 142 H 108 H Calcium Ferritin Total Bilirubin Alkaline Phosphatase Lactate Dehydrogenase Total Creatine Kinase CK-MB (CK-2) Rel Index Troponin T C-Reactive Protein Total Protein Albumin Prealbumin LDL Cholesterol Direct HDL Cholesterol Arterial Blood Glucose Arterial Blood Ionized Calcium Urine WBC (Auto) 04/17/20 04/17/20 04/17/20 05:09 06:53 06:53 WBC 14.2 H RBC Hgb 10.1 L Hct 31.5 L MCV MCH 27 L RDW 17.2 H Plt Count 643 H Lymph % (Auto) [place] % (Auto) Lymph # (Auto) [place] # (Auto) Seg Neutrophils % Seg Neuts % (Manual) Lymphocytes % (Manual) Monocytes % (Manual) Basophils % (Manual) Seg Neutrophils # Seg Neutrophils # Man Lymphocytes # (Manual) Monocytes # (Manual) Eosinophils # (Manual) Basophils # (Manual) PT INR D-Dimer ABG pH POC ABG pCO2 POC ABG pO2 ABG pO2 ABG HCO3 ABG O2 Saturation ABG Base Excess ABG Hemoglobin ABG Oxyhemoglobin ABG Potassium ABG Glucose Oxyhemoglobin Carboxyhemoglobin Sodium Potassium Chloride 97.7 L Carbon Dioxide 38 H BUN Creatinine < 0.2 L Glucose 126 H POC Glucose 131 H Calcium Ferritin Total Bilirubin Alkaline Phosphatase Lactate Dehydrogenase Total Creatine Kinase CK-MB (CK-2) Rel Index Troponin T C-Reactive Protein Total Protein Albumin Prealbumin LDL Cholesterol Direct HDL Cholesterol Arterial Blood Glucose Arterial Blood Ionized Calcium Urine WBC (Auto) 04/17/20 04/18/20 04/18/20 11:21 00:23 04:01 WBC 15.3 H RBC Hgb 10.1 L Hct 31.9 L MCV 82 L MCH 26 L RDW 17.2 H Plt Count 665 H Lymph % (Auto) 12.9 L [place] % (Auto) Lymph # (Auto) [place] # (Auto) 1.1 H Seg Neutrophils % 78.0 H Seg Neuts % (Manual) Lymphocytes % (Manual) Monocytes % (Manual) Basophils % (Manual) Seg Neutrophils # 11.9 H Seg Neutrophils # Man Lymphocytes # (Manual) Monocytes # (Manual) Eosinophils # (Manual) Basophils # (Manual) PT INR D-Dimer ABG pH POC ABG pCO2 POC ABG pO2 ABG pO2 ABG HCO3 ABG O2 Saturation ABG Base Excess ABG Hemoglobin ABG Oxyhemoglobin ABG Potassium ABG Glucose Oxyhemoglobin Carboxyhemoglobin Sodium Potassium Chloride Carbon Dioxide BUN Creatinine Glucose POC Glucose 140 H 125 H Calcium Ferritin Total Bilirubin Alkaline Phosphatase Lactate Dehydrogenase Total Creatine Kinase CK-MB (CK-2) Rel Index Troponin T C-Reactive Protein Total Protein Albumin Prealbumin LDL Cholesterol Direct HDL Cholesterol Arterial Blood Glucose Arterial Blood Ionized Calcium Urine WBC (Auto) 04/18/20 04/18/20 04/18/20 04:01 11:29 17:30 WBC RBC Hgb Hct MCV MCH RDW Plt Count Lymph % (Auto) [place] % (Auto) Lymph # (Auto) [place] # (Auto) Seg Neutrophils % Seg Neuts % (Manual) Lymphocytes % (Manual) Monocytes % (Manual) Basophils % (Manual) Seg Neutrophils # Seg Neutrophils # Man Lymphocytes # (Manual) Monocytes # (Manual) Eosinophils # (Manual) Basophils # (Manual) PT INR D-Dimer ABG pH POC ABG pCO2 POC ABG pO2 ABG pO2 ABG HCO3 ABG O2 Saturation ABG Base Excess ABG Hemoglobin ABG Oxyhemoglobin ABG Potassium ABG Glucose Oxyhemoglobin Carboxyhemoglobin Sodium Potassium Chloride 97.0 L Carbon Dioxide 38 H BUN Creatinine < 0.2 L Glucose 117 H POC Glucose 136 H 107 H Calcium Ferritin Total Bilirubin Alkaline Phosphatase Lactate Dehydrogenase Total Creatine Kinase CK-MB (CK-2) Rel Index Troponin T C-Reactive Protein Total Protein Albumin Prealbumin LDL Cholesterol Direct HDL Cholesterol Arterial Blood Glucose Arterial Blood Ionized Calcium Urine WBC (Auto) 04/18/20 04/19/20 04/19/20 23:19 06:51 06:51 WBC 12.2 H RBC Hgb 9.8 L Hct 31.1 L MCV 82 L MCH 26 L RDW 17.2 H Plt Count 549 H Lymph % (Auto) 6.5 L [place] % (Auto) Lymph # (Auto) 0.8 L [place] # (Auto) Seg Neutrophils % 86.7 H Seg Neuts % (Manual) Lymphocytes % (Manual) Monocytes % (Manual) Basophils % (Manual) Seg Neutrophils # 10.6 H Seg Neutrophils # Man Lymphocytes # (Manual) Monocytes # (Manual) Eosinophils # (Manual) Basophils # (Manual) PT INR D-Dimer ABG pH POC ABG pCO2 POC ABG pO2 ABG pO2 ABG HCO3 ABG O2 Saturation ABG Base Excess ABG Hemoglobin ABG Oxyhemoglobin ABG Potassium ABG Glucose Oxyhemoglobin Carboxyhemoglobin Sodium Potassium Chloride 97.8 L Carbon Dioxide 38 H BUN Creatinine < 0.2 L Glucose 123 H POC Glucose 127 H Calcium Ferritin Total Bilirubin Alkaline Phosphatase Lactate Dehydrogenase Total Creatine Kinase CK-MB (CK-2) Rel Index Troponin T C-Reactive Protein Total Protein Albumin Prealbumin LDL Cholesterol Direct HDL Cholesterol Arterial Blood Glucose Arterial Blood Ionized Calcium Urine WBC (Auto) 04/19/20 04/19/20 04/20/20 13:41 18:33 05:56 WBC RBC Hgb Hct MCV MCH RDW Plt Count Lymph % (Auto) [place] % (Auto) Lymph # (Auto) [place] # (Auto) Seg Neutrophils % Seg Neuts % (Manual) Lymphocytes % (Manual) Monocytes % (Manual) Basophils % (Manual) Seg Neutrophils # Seg Neutrophils # Man Lymphocytes # (Manual) Monocytes # (Manual) Eosinophils # (Manual) Basophils # (Manual) PT INR D-Dimer ABG pH POC ABG pCO2 POC ABG pO2 ABG pO2 ABG HCO3 ABG O2 Saturation ABG Base Excess ABG Hemoglobin ABG Oxyhemoglobin ABG Potassium ABG Glucose Oxyhemoglobin Carboxyhemoglobin Sodium Potassium Chloride Carbon Dioxide BUN Creatinine Glucose POC Glucose 116 H 124 H 130 H Calcium Ferritin Total Bilirubin Alkaline Phosphatase Lactate Dehydrogenase Total Creatine Kinase CK-MB (CK-2) Rel Index Troponin T C-Reactive Protein Total Protein Albumin Prealbumin LDL Cholesterol Direct HDL Cholesterol Arterial Blood Glucose Arterial Blood Ionized Calcium Urine WBC (Auto) 04/20/20 04/20/20 04/20/20 06:28 06:28 11:46 WBC RBC Hgb 10.2 L Hct 31.5 L MCV 82 L MCH 27 L RDW 17.1 H Plt Count 546 H Lymph % (Auto) 10.0 L [place] % (Auto) 9.8 H Lymph # (Auto) 1.1 L [place] # (Auto) 1.1 H Seg Neutrophils % 78.4 H Seg Neuts % (Manual) Lymphocytes % (Manual) Monocytes % (Manual) Basophils % (Manual) Seg Neutrophils # 8.5 H Seg Neutrophils # Man Lymphocytes # (Manual) Monocytes # (Manual) Eosinophils # (Manual) Basophils # (Manual) PT INR D-Dimer ABG pH POC ABG pCO2 POC ABG pO2 ABG pO2 ABG HCO3 ABG O2 Saturation ABG Base Excess ABG Hemoglobin ABG Oxyhemoglobin ABG Potassium ABG Glucose Oxyhemoglobin Carboxyhemoglobin Sodium Potassium Chloride 97.0 L Carbon Dioxide 38 H BUN Creatinine < 0.2 L Glucose 138 H POC Glucose 130 H Calcium Ferritin Total Bilirubin Alkaline Phosphatase Lactate Dehydrogenase Total Creatine Kinase CK-MB (CK-2) Rel Index Troponin T C-Reactive Protein Total Protein Albumin Prealbumin LDL Cholesterol Direct HDL Cholesterol Arterial Blood Glucose Arterial Blood Ionized Calcium Urine WBC (Auto) 04/20/20 04/21/20 04/21/20 23:31 05:55 05:55 WBC RBC Hgb 10.0 L Hct 31.1 L MCV 82 L MCH 26 L RDW 17.0 H Plt Count 535 H Lymph % (Auto) [place] % (Auto) 9.2 H Lymph # (Auto) 1.1 L [place] # (Auto) Seg Neutrophils % 75.4 H Seg Neuts % (Manual) Lymphocytes % (Manual) Monocytes % (Manual) Basophils % (Manual) Seg Neutrophils # Seg Neutrophils # Man Lymphocytes # (Manual) Monocytes # (Manual) Eosinophils # (Manual) Basophils # (Manual) PT INR D-Dimer ABG pH POC ABG pCO2 POC ABG pO2 ABG pO2 ABG HCO3 ABG O2 Saturation ABG Base Excess ABG Hemoglobin ABG Oxyhemoglobin ABG Potassium ABG Glucose Oxyhemoglobin Carboxyhemoglobin Sodium Potassium Chloride 95.0 L Carbon Dioxide 34 H BUN Creatinine < 0.2 L Glucose 125 H POC Glucose 116 H Calcium Ferritin Total Bilirubin Alkaline Phosphatase Lactate Dehydrogenase Total Creatine Kinase CK-MB (CK-2) Rel Index Troponin T C-Reactive Protein Total Protein Albumin Prealbumin LDL Cholesterol Direct HDL Cholesterol Arterial Blood Glucose Arterial Blood Ionized Calcium Urine WBC (Auto) 04/22/20 04/22/20 04/22/20 00:01 07:45 07:45 WBC RBC Hgb 10.0 L Hct 30.7 L MCV 81 L MCH 27 L RDW 17.1 H Plt Count 490 H Lymph % (Auto) [place] % (Auto) Lymph # (Auto) [place] # (Auto) Seg Neutrophils % Seg Neuts % (Manual) 75.0 H Lymphocytes % (Manual) 11.0 L Monocytes % (Manual) 9.0 H Basophils % (Manual) Seg Neutrophils # Seg Neutrophils # Man Lymphocytes # (Manual) 0.8 L Monocytes # (Manual) Eosinophils # (Manual) Basophils # (Manual) PT INR D-Dimer ABG pH POC ABG pCO2 POC ABG pO2 ABG pO2 ABG HCO3 ABG O2 Saturation ABG Base Excess ABG Hemoglobin ABG Oxyhemoglobin ABG Potassium ABG Glucose Oxyhemoglobin Carboxyhemoglobin Sodium Potassium Chloride 96.3 L Carbon Dioxide 40 H BUN Creatinine < 0.2 L Glucose 109 H POC Glucose 110 H Calcium Ferritin Total Bilirubin Alkaline Phosphatase Lactate Dehydrogenase Total Creatine Kinase CK-MB (CK-2) Rel Index Troponin T C-Reactive Protein Total Protein Albumin Prealbumin LDL Cholesterol Direct HDL Cholesterol Arterial Blood Glucose Arterial Blood Ionized Calcium Urine WBC (Auto) 04/23/20 04/23/20 04/23/20 04:28 04:28 04:28 WBC RBC 3.64 L Hgb 9.7 L Hct 29.4 L MCV 81 L MCH 27 L RDW 17.2 H Plt Count 527 H Lymph % (Auto) [place] % (Auto) 8.9 H Lymph # (Auto) [place] # (Auto) Seg Neutrophils % Seg Neuts % (Manual) Lymphocytes % (Manual) Monocytes % (Manual) Basophils % (Manual) Seg Neutrophils # Seg Neutrophils # Man Lymphocytes # (Manual) Monocytes # (Manual) Eosinophils # (Manual) Basophils # (Manual) PT INR D-Dimer ABG pH POC ABG pCO2 POC ABG pO2 ABG pO2 ABG HCO3 ABG O2 Saturation ABG Base Excess ABG Hemoglobin ABG Oxyhemoglobin ABG Potassium ABG Glucose Oxyhemoglobin Carboxyhemoglobin Sodium Potassium Chloride 96.4 L Carbon Dioxide 32 H D BUN Creatinine < 0.2 L Glucose 134 H POC Glucose Calcium Ferritin Total Bilirubin Alkaline Phosphatase Lactate Dehydrogenase Total Creatine Kinase CK-MB (CK-2) Rel Index Troponin T 0.151 H* C-Reactive Protein Total Protein Albumin Prealbumin LDL Cholesterol Direct HDL Cholesterol 29 L Arterial Blood Glucose Arterial Blood Ionized Calcium Urine WBC (Auto) 04/23/20 04/23/20 04/24/20 06:03 23:41 05:28 WBC RBC 3.56 L Hgb 9.5 L Hct 28.9 L MCV 81 L MCH 27 L RDW 17.4 H Plt Count 462 H Lymph % (Auto) Antelope % (Auto) Lymph # (Auto) Antelope # (Auto) Seg Neutrophils % Seg Neuts % (Manual) 80.0 H Lymphocytes % (Manual) Monocytes % (Manual) Basophils % (Manual) Seg Neutrophils # Seg Neutrophils # Man Lymphocytes # (Manual) Monocytes # (Manual) Eosinophils # (Manual) Basophils # (Manual) PT INR D-Dimer ABG pH POC ABG pCO2 POC ABG pO2 ABG pO2 ABG HCO3 ABG O2 Saturation ABG Base Excess ABG Hemoglobin ABG Oxyhemoglobin ABG Potassium ABG Glucose Oxyhemoglobin Carboxyhemoglobin Sodium Potassium Chloride Carbon Dioxide BUN Creatinine Glucose POC Glucose 132 H 117 H Calcium Ferritin Total Bilirubin Alkaline Phosphatase Lactate Dehydrogenase Total Creatine Kinase CK-MB (CK-2) Rel Index Troponin T C-Reactive Protein Total Protein Albumin Prealbumin LDL Cholesterol Direct HDL Cholesterol Arterial Blood Glucose Arterial Blood Ionized Calcium Urine WBC (Auto) 04/24/20 04/24/20 04/24/20 05:28 05:28 05:33 WBC RBC Hgb Hct MCV MCH RDW Plt Count Lymph % (Auto) [place]elope % (Auto) Lymph # (Auto) Antelope # (Auto) Seg Neutrophils % Seg Neuts % (Manual) Lymphocytes % (Manual) Monocytes % (Manual) Basophils % (Manual) Seg Neutrophils # Seg Neutrophils # Man Lymphocytes # (Manual) Monocytes # (Manual) Eosinophils # (Manual) Basophils # (Manual) PT INR D-Dimer ABG pH POC ABG pCO2 POC ABG pO2 ABG pO2 ABG HCO3 ABG O2 Saturation ABG Base Excess ABG Hemoglobin ABG Oxyhemoglobin ABG Potassium ABG Glucose Oxyhemoglobin Carboxyhemoglobin Sodium Potassium Chloride 96.1 L Carbon Dioxide 40 H D BUN Creatinine < 0.2 L Glucose 115 H POC Glucose 109 H Calcium Ferritin Total Bilirubin Alkaline Phosphatase Lactate Dehydrogenase Total Creatine Kinase CK-MB (CK-2) Rel Index Troponin T 0.181 H* C-Reactive Protein Total Protein Albumin Prealbumin LDL Cholesterol Direct HDL Cholesterol Arterial Blood Glucose Arterial Blood Ionized Calcium Urine WBC (Auto) 04/24/20 04/24/20 04/25/20 11:17 18:23 00:12 WBC RBC Hgb Hct MCV MCH RDW Plt Count Lymph % (Auto) [place]elope % (Auto) Lymph # (Auto) Antelope # (Auto) Seg Neutrophils % Seg Neuts % (Manual) Lymphocytes % (Manual) Monocytes % (Manual) Basophils % (Manual) Seg Neutrophils # Seg Neutrophils # Man Lymphocytes # (Manual) Monocytes # (Manual) Eosinophils # (Manual) Basophils # (Manual) PT INR D-Dimer ABG pH POC ABG pCO2 POC ABG pO2 ABG pO2 ABG HCO3 ABG O2 Saturation ABG Base Excess ABG Hemoglobin ABG Oxyhemoglobin ABG Potassium ABG Glucose Oxyhemoglobin Carboxyhemoglobin Sodium Potassium Chloride Carbon Dioxide BUN Creatinine Glucose POC Glucose 117 H 109 H 113 H Calcium Ferritin Total Bilirubin Alkaline Phosphatase Lactate Dehydrogenase Total Creatine Kinase CK-MB (CK-2) Rel Index Troponin T C-Reactive Protein Total Protein Albumin Prealbumin LDL Cholesterol Direct HDL Cholesterol Arterial Blood Glucose Arterial Blood Ionized Calcium Urine WBC (Auto) 04/25/20 04/25/20 04/25/20 06:34 06:34 11:28 WBC 11.7 H RBC Hgb 10.0 L Hct 31.7 L MCV 82 L MCH 26 L RDW 17.5 H Plt Count 564 H Lymph % (Auto) Antelope % (Auto) Lymph # (Auto) Antelope # (Auto) Seg Neutrophils % Seg Neuts % (Manual) 78.0 H Lymphocytes % (Manual) 10.0 L Monocytes % (Manual) 9.0 H Basophils % (Manual) Seg Neutrophils # Seg Neutrophils # Man 9.1 H Lymphocytes # (Manual) Monocytes # (Manual) 1.1 H Eosinophils # (Manual) Basophils # (Manual) PT INR D-Dimer ABG pH POC ABG pCO2 POC ABG pO2 ABG pO2 ABG HCO3 ABG O2 Saturation ABG Base Excess ABG Hemoglobin ABG Oxyhemoglobin ABG Potassium ABG Glucose Oxyhemoglobin Carboxyhemoglobin Sodium Potassium Chloride Carbon Dioxide 39 H BUN Creatinine < 0.2 L Glucose 103 H POC Glucose 112 H Calcium Ferritin Total Bilirubin Alkaline Phosphatase Lactate Dehydrogenase Total Creatine Kinase CK-MB (CK-2) Rel Index Troponin T C-Reactive Protein Total Protein Albumin Prealbumin LDL Cholesterol Direct HDL Cholesterol Arterial Blood Glucose Arterial Blood Ionized Calcium Urine WBC (Auto) Allied health notes reviewed: nursing
--- NOTE | 2020-04-26 14:13 | Progress Note ---
Assessment and Plan Assessment and plan: Assessment and plan: --Acute hypoxic hypercapnic respiratory failure; S/p tracheostomy on ventilatory support etiology secondary to sepsis, ALS, multifocal pneumonia (Covid negative). Pulmonary following --ALS --Oral thrush Nystatin/Magic mouthwash swish and spit --Constipation; Patient already received Dulcolax suppository and Colace Received milk of magnesia, with relief --History of ALS - Stable --Elevated D-dimers; imaging studies negative for PE and DVT --Bilateral pneumonia; probably community-acquired Completed the treatment, continue supportive care --Sepsis secondary to pneumonia; completed the treatment resolved --Elevated troponin non-ST elevation [place] type II Continue current management --Febrile illness; resolved ,secondary to pneumonia Complete antibiotics , resolved --DVT prophylaxis; Lovenox. 02/25/2020. CTA of the chest reveals no PE but does illustrate the bilateral pneumonia. Doppler ultrasound also negative for DVT. Blood cultures are pending. Await COVID-19 testing. Patient currently requiring BiPAP IPAP 24/EPAP 6 with FiO2 of 25%. Continue O2 and BiPAP as clinically indicated. ID and pulmonary consulted. 02/26/2020. Blood cultures are negative x48 hours and Covid testing negative as well. Continue antibiotics per ID recommendations for community-acquired bilateral pneumonia. Cardiology consultation for elevated troponin. Check echocardiogram. 02/27/2020. Events of yesterday noted with asystole following V. fib arrest. Patient currently on AC mode rate 20, tidal volume 400, FiO2 50% and a PEEP of 6. Follow-up echocardiogram for elevated troponin. Cardiology suspects NSTEMI Type 2 in the setting of acute resp failure. Chest CTA and BLE Dopplers neg. we will discontinue Decadron given the Covid PCR is negative. 02/28/2020. I spoke with the sister Felisa Eli who is the power of assembler [employer] regarding advanced directives and she instructed me that she would like to continue with aggressive care at this time. I informed her of the guarded prognosis and high mortality/morbidity and she voiced understanding. Patient currently with AC mode ventilation rate 18, tidal volume 400, FiO2 40% and a PEEP of 6. Continue antibiotics for pneumonia. ID previously consulted. Also consult neurology with regards to ALS. 02/29/2020; patient is intubated and on CPAP patient is alert and oriented. Patient has ALS. Dr. Álvarez spoke with his sister and she wants aggressive care. Continue antibiotics for pneumonia. Neurology consulted for ALS. Prognosis poor 03/01/2020; patient is intubated and on CPAP, patient is alert and oriented. I spoke with his 2 sisters about the management plan. 03/02/2020; patient is intubated and on CPAP. Patient was alert and oriented. I spoke with Dr. mohr and he thinks patient may need mechanical ventilation, likely his disease progressed. Dr. Flowers did debridement this morning. 03/03/2020; patient is intubated and on CPAP, patient was on trilogy and BiPAP at home. Patient has ALS. on spontaneous breathing trial. Patient is alert and oriented but quadriplegic. Patient has severe bilateral pneumonia and is on cefepime and Vanco, ID is following. Patient has sacral decubitus ulcer and debridement was done by Dr. Flowers and there is no osteomyelitis. 03/05. Patient still on broad-spectrum antibiotics. Status post sacral decubitus ulcer debridements-no osteomyelitis. Patient is on AC 25/400/30% PEEP 5. No blood gas results today. 03/06. Plan for tracheostomy by surgery. Still remains intubated. Labs reviewed-sodium 150. Started on free water 200 every 8hr. trend sodium. 03/07: s/p trach placement today, patient placed back on mechanical ventilation with trach. Plan to resume tube feeding with NG tube. Continue to monitor vitals, monitor BMP. 03/08: Patient noted to have distended abdomen with low urinary output. Obtain bladder scan rule out urine retention, UA and urine culture, continue to follow clinically. 03/09: Patient noted to have low blood pressure with SBP as low as 70s. Ordered for 500 mils normal saline bolus. CT abdomen showed bladder outlet obstruction, urology consulted. 03/10: placed on drake by urology o/n, improved urine outpt. cont to monitor BMP. resuded TF - cont free water with TF. wean off from vent as tolerated. 03/11: Vitals stable. cont TF, wean off from vent as tolerated. start on 1/2 NS for hypernatremia - follow BMP 03/12: wean off vent as tolerated, plan for speech eval, cont Tf for now, cont iv fluid 03/13: unable to wean off from vent, unable to do speech therapy eval. will need PEG tube, cont supportive care for now, cont NG tube feeding 03/14: consulted GI for PEg placemnet, cont supportive care. remains on vent at night 03/15: Discussed with GI, plan for PEG tube placement possibly tomorrow. Continue supportive care and wean off from vent as tolerated. Hold Lovenox dose tonight. 03/16: family didnot consent for PEG placement yesterday. I spoke with the daughter today and she is now agreeable for PEG tube. I explained the necessity of the procedure with RN to the patient also and he nodded started on tube feeding, for the procedure. will cont supportive care. planned for PEG tube placement tomorrow. 03/17: s/p PEG placement today, patient tolerated well, cont supportive care 03/18: Started on tube feeding with new PEG tube, continue to wean off vent as tolerated 03/19: cont to monitor with supportive care, wean off vent as tolerated 03/20: Continue to wean off vent as tolerated -but failing weaning trial. Still requiring vent support at night. Currently on PEG tube for tube feed. 03/21. Pt with PSV trials with FiO@ 30%, PEEP 6, PS 10. Currently on PEG tube for tube feed. 03/22/2020. Continue PSV trials per pulmonary. Continue bronchodilators. Patient tolerating tube feedings. Continue Robinul for secretion control. 03/23/2020. Continue PSV trials per pulmonary. Continue bronchodilators. Continue Scopolamine and Robinul for secretion control. Trach care/airway management. Mobility protocols for pressure ulcer prophylaxis. LTAC evaluation per case management 03/24/2020. Continue PSV trials with current settings pressure support 10, PEEP 6 and FiO2 30%. Continue bronchodilators/nebulizer. Continue Scopolamine and Robinul for secretion control. Trach care/airway management. Mobility protocols for pressure ulcer prophylaxis. LTAC evaluation per case management 03/25/2020. Pulmonary to proceed with T-piece trials today. Continue bronchodilators/nebulizer. Continue Scopolamine and Robinul for secretion control. Trach care/airway management. Mobility protocols for pressure ulcer prophylaxis. 03/26/2020. Patient currently with PSV 10/6 at FiO2 of 30%. Continue weaning and T-piece trials per protocol. Continue bronchodilators/nebulizer. Continue Scopolamine and Robinul for secretion control. Trach care/airway management. Mobility protocols for pressure ulcer prophylaxis. Continue tube feeding with a spiration precautions. 03/27/2020. Patient currently with PSV 01/31 at FiO2 of 30%. Continue weaning and T-piece trials per protocol. Continue bronchodilators/nebulizer. Continue Scopolamine and Robinul for secretion control. Trach care/airway management. Mobility protocols for pressure ulcer prophylaxis. Continue tube feeding with aspiration precautions. 03/28. Had temp 100.7F. He has been off antibiotics. Will send blood culture, ua, urine culture and chest xray. Had chest pain overnight and trop was elevated as well. Cardiology to evaluate 03/29. Has back pain due to position. He mentions his chest pain is positional. Has no other complaints. Still on mechanical ventilation 03/30. No chest pain today. Labs reviewed. Discussed chest pain with cardiology and team advised no further work up at this time. Can follow up with cardiology in the office after hospitalization 03/31. Lidocaine patch for lower back pain. 04/01. Discharge planning underway. CM notes reviewed. Discussed with daughter 04/02 - . CM trying to arrange discharge. Continue PSV trials. Discussed with patients significant other 04/04/2020; CM is working for discharge arrangement. Continue PSV trials. 04/05/2020; patient was seen and evaluated this morning and no change from baseline. Continue with PSV trials. Follow with nurse behavioral health care for discharge planning. 04/06/2020;patient was seen and evaluated this morning and no change from baseline. Continue with PSV trials. Follow with nurse behavioral health care for discharge planning. 04/07/2020; patient was seen and evaluated this morning and no change from baseline. Continue with PSV trials. Follow with nurse behavioral health care for discharge planning. 04/08/2020; patient is vent dependent. Discharge is per nurse behavioral health care. 04/09/2020 patient is vent dependent, possible LTAC placement 04/10/2020; tracheostomy on vent, vent dependent pending LTAC placement 04/11/2020; clinically no change, tracheostomy on ventilatory support, wean as tolerated, awaiting placement 04/12/2020; remains on ventilatory support, unable to wean, patient wants to see a speech therapist for sound box However we cannot try that as long as he is on ventilatory support, once he is weaned off vent We will consult speech therapist, plan of care reviewed with the patient and his nurse 04/14/2020; clinically no change, on ventilatory support, complains of constipation, milk of magnesia Closely monitor the patient and adjust the management as needed 04/15/2020; patient has some oral thrush on the tongue, will give Magic mouthwash/nystatin swish and spit Wean off vent as tolerated 04/16 patient is alert and oriented, unable to comprehend what he is trying to tell but appears to complain of some pain, no acute events overnight, all interdisciplinary notes reviewed. Waiting for LTAC versus longterm facility placement 04/17/2020. Continue supportive care with mechanical ventilation. Patient currently on AC mode rate 10, tidal volume 400 FiO2 30% with a PEEP of 6. Discharge planning per case management. 04/18/2020. Patient remains on mechanical ventilation AC mode rate 10, tidal volume 400, FiO2 30% and PEEP of 6. Continue spontaneous breathing trials as tolerated. Previously, patient was considered for discharge home with skilled staff providing care for 12 hours 7 days/week. Continue discussed with case management discharge planning. 04/19/20. Patient remains on mechanical ventilation AC mode rate 10, tidal volume 400, FiO2 30% and PEEP of 6. Continue spontaneous breathing trials as tolerated. 04/20/2020. Patient remains on mechanical ventilation AC mode rate 10, tidal volume 400, FiO2 30% and PEEP of 6. Continue spontaneous breathing trials as tolerated. 04/21/2020. Patient remains on mechanical ventilation AC mode rate 10, tidal volume 400, FiO2 30% and PEEP of 6. Continue tracheostomy care, secretion control and airway management. Continue spontaneous breathing trials as tolerated. 04/22/2020. Patient remains on mechanical ventilation AC mode rate 10, tidal volume 400, FiO2 30% and PEEP of 6. Continue tracheostomy care, secretion control and airway management. Continue spontaneous breathing trials as tolerated. 04/23/2020. Patient on mechanical ventilation AC mode rate 18, tidal volume 450, FiO2 30% and PEEP of 6. Continue tracheostomy care, secretion control and airway management. Continue spontaneous breathing trials as tolerated. Continue Robinul and scopolamine for secretions. Continue baclofen. 04/24/2020. Patient remains on AC mode ventilation rate 10, tidal volume 400, FiO2 30% and PEEP of 6. Continue tracheostomy care, secretion control and airway management. Continue spontaneous breathing trials as tolerated. Continue Robinul and scopolamine for secretions. Continue baclofen. Continue Xanax for anxiety and Ambien for sleep. Await case management follow-up with regards to discharge planning. 04/25/2020. Patient remains on AC mode ventilation rate 10, tidal volume 400, FiO2 30% and PEEP of 6. Continue tracheostomy care, secretion control and airway management. Continue spontaneous breathing trials as tolerated. Continue Robinul and scopolamine for secretions. Continue baclofen. Continue Xanax for anxiety and Ambien for sleep. Await case management follow-up with regards to discharge planning. 04/26. Patient remains on AC mode ventilation rate 10, tidal volume 400, FiO2 30% and PEEP of 6. Continue tracheostomy care, secretion control and airway management. Continue spontaneous breathing trials as tolerated. Continue Robinul and scopolamine for secretions. Continue baclofen. Continue Xanax for anxiety and Ambien for sleep. Await case management follow-up with regards to discharge planning. History Interval history: Patient seen and examined at bedside Trach in place DC planning Hospitalist Physical - Physical exam Narrative exam: VITAL SIGNS: Reviewed. GENERAL: Awake. trach to vent HEAD: No signs of head trauma. EYES: Pupils are equal. Extraocular motions intact. EARS: Hearing grossly intact. MOUTH: Oropharynx is normal. NECK: No adenopathy, no JVD. CHEST: Coarse breath sounds bilaterally CARDIAC: Regular rate and rhythm. S1 and S2, without murmurs, gallops, or rubs. VASCULAR: No Edema. Peripheral pulses normal and equal in all extremities. ABDOMEN: Soft, non tender and non distended. No rebound or guarding, and no masses palpated. Bowel Sounds normal. NEUROLOGIC EXAM: Awake SKIN: No obvious lesions - Constitutional Vitals: Temp Pulse Resp BP Pulse Ox 98.0 F 97 H 14 89/66 98 04/26/20 08:00 04/26/20 12:14 04/26/20 12:14 04/26/20 12:14 04/26/20 12:22 HEART Score - HEART Score Troponin: Troponin T 0.181 ng/mL (0.00-0.029) H* 04/24/20 05:28 Results - Labs CBC & Chem 7: 04/25/20 06:34 04/25/20 06:34 Labs: Laboratory Last Values WBC 11.7 K/mm3 (4.5-11.0) H 04/25/20 06:34 RBC 3.87 M/mm3 (3.65-5.03) 04/25/20 06:34 Hgb 10.0 gm/dl (11.8-15.2) L 04/25/20 06:34 Hct 31.7 % (35.5-45.6) L 04/25/20 06:34 MCV 82 fl (84-94) L 04/25/20 06:34 MCH 26 pg (28-32) L 04/25/20 06:34 MCHC 32 % (32-34) 04/25/20 06:34 RDW 17.5 % (13.2-15.2) H 04/25/20 06:34 Plt Count 564 K/mm3 (140-440) H 04/25/20 06:34 Lymph % (Auto) 23.6 % (13.4-35.0) 04/23/20 04:28 Blount % (Auto) 8.9 % (0.0-7.3) H 04/23/20 04:28 Eos % (Auto) 2.1 % (0.0-4.3) 04/23/20 04:28 Baso % (Auto) 0.7 % (0.0-1.8) 04/23/20 04:28 Lymph # (Auto) 1.9 K/mm3 (1.2-5.4) 04/23/20 04:28 Blount # (Auto) 0.7 K/mm3 (0.0-0.8) 04/23/20 04:28 Eos # (Auto) 0.2 K/mm3 (0.0-0.4) 04/23/20 04:28 Baso # (Auto) 0.1 K/mm3 (0.0-0.1) 04/23/20 04:28 Add Manual Diff Complete 04/25/20 06:34 Total Counted 100 04/25/20 06:34 Seg Neutrophils % 64.7 % (40.0-70.0) 04/23/20 04:28 Seg Neuts % (Manual) 78.0 % (40.0-70.0) H 04/25/20 06:34 Band Neutrophils % 1.0 % 04/22/20 07:45 Lymphocytes % (Manual) 10.0 % (13.4-35.0) L 04/25/20 06:34 Reactive Lymphs % (Man) 1.0 % 04/22/20 07:45 Monocytes % (Manual) 9.0 % (0.0-7.3) H 04/25/20 06:34 Eosinophils % (Manual) 2.0 % (0.0-4.3) 04/25/20 06:34 Basophils % (Manual) 1.0 % (0.0-1.8) 04/25/20 06:34 Metamyelocytes % 3.0 % 04/12/20 09:07 Myelocytes % 0 % 03/28/20 10:28 Promyelocytes % 0 % 03/28/20 10:28 Blast Cells % 0 % 03/28/20 10:28 Nucleated RBC % Not Reportable 04/25/20 06:34 Seg Neutrophils # 5.2 K/mm3 (1.8-7.7) 04/23/20 04:28 Seg Neutrophils # Man 9.1 K/mm3 (1.8-7.7) H 04/25/20 06:34 Band Neutrophils # 0.0 K/mm3 04/25/20 06:34 Lymphocytes # (Manual) 1.2 K/mm3 (1.2-5.4) 04/25/20 06:34 Abs React Lymphs (Man) 0.0 K/mm3 04/25/20 06:34 Monocytes # (Manual) 1.1 K/mm3 (0.0-0.8) H 04/25/20 06:34 Eosinophils # (Manual) 0.2 K/mm3 (0.0-0.4) 04/25/20 06:34 Basophils # (Manual) 0.1 K/mm3 (0.0-0.1) 04/25/20 06:34 Metamyelocytes # 0.0 K/mm3 04/25/20 06:34 Myelocytes # 0.0 K/mm3 04/25/20 06:34 Promyelocytes # 0.0 K/mm3 04/25/20 06:34 Blast Cells # 0.0 K/mm3 04/25/20 06:34 WBC Morphology Not Reportable 04/25/20 06:34 Hypersegmented Neuts Not Reportable 04/25/20 06:34 Hyposegmented Neuts Not Reportable 04/25/20 06:34 Hypogranular Neuts Not Reportable 04/25/20 06:34 Smudge Cells Not Reportable 04/25/20 06:34 Toxic Granulation Not Reportable 04/25/20 06:34 Toxic Vacuolation Not Reportable 04/25/20 06:34 Dohle Bodies Not Reportable 04/25/20 06:34 Pelger-Huet Anomaly Not Reportable 04/25/20 06:34 Robert Rods Not Reportable 04/25/20 06:34 Platelet Estimate Consistent w auto 04/25/20 06:34 Clumped Platelets Not Reportable 04/25/20 06:34 Plt Clumps, EDTA Not Reportable 04/25/20 06:34 Large Platelets Not Reportable 04/25/20 06:34 Giant Platelets Not Reportable 04/25/20 06:34 Platelet Satelliting Not Reportable 04/25/20 06:34 Plt Morphology Comment Not Reportable 04/25/20 06:34 RBC Morphology Not Reportable 04/25/20 06:34 Dimorphic RBCs Not Reportable 04/25/20 06:34 Polychromasia Not Reportable 04/25/20 06:34 Hypochromasia 1+ 04/25/20 06:34 Poikilocytosis Not Reportable 04/25/20 06:34 Anisocytosis Few 04/25/20 06:34 Microcytosis Not Reportable 04/25/20 06:34 Macrocytosis Not Reportable 04/25/20 06:34 Spherocytes Not Reportable 04/25/20 06:34 Pappenheimer Bodies Not Reportable 04/25/20 06:34 Sickle Cells Not Reportable 04/25/20 06:34 Target Cells Not Reportable 04/25/20 06:34 Stomatocytes Few 03/17/20 04:40 Tear Drop Cells Not Reportable 04/25/20 06:34 Ovalocytes Not Reportable 04/25/20 06:34 Helmet Cells Not Reportable 04/25/20 06:34 [place] Bodies Not Reportable 04/25/20 06:34 [place] Rings Not Reportable 04/25/20 06:34 Riaz Cells Not Reportable 04/25/20 06:34 Bite Cells Not Reportable 04/25/20 06:34 Crenated Cell Not Reportable 04/25/20 06:34 Elliptocytes Not Reportable 04/25/20 06:34 Acanthocytes (Spur) Not Reportable 04/25/20 06:34 Rouleaux Not Reportable 04/25/20 06:34 Hemoglobin C Crystals Not Reportable 04/25/20 06:34 Schistocytes 1+ 04/25/20 06:34 Malaria parasites Not Reportable 04/25/20 06:34 Colton Bodies Not Reportable 04/25/20 06:34 Hem Pathologist Commnt No 04/25/20 06:34 PT 15.6 Sec. (12.2-14.9) H 02/24/20 09:19 INR 1.21 (0.87-1.13) H 02/24/20 09:19 APTT 25.4 Sec. (24.2-36.6) 02/24/20 09:19 D-Dimer 1311.96 ng/mlDDU (0-234) H 02/24/20 09:19 ABG pH 7.371 (7.320-7.450) 03/08/20 12:34 POC ABG pCO2 63.1 mmHg (32.0-48.0) H 03/08/20 12:34 ABG pCO2 60.1 mm Hg 03/06/20 04:34 POC ABG pO2 90.5 mmHg (83-108) 03/08/20 12:34 ABG pO2 88.6 mm Hg (80.0-90.0) 03/06/20 04:34 POC ABG HCO3 35.7 03/08/20 12:34 ABG HCO3 37.9 mmol/L (20.0-26.0) H 03/06/20 04:34 ABG O2 Saturation 97.0 % (95.0-99.0) 03/06/20 04:34 ABG O2 Content 14.3 (0.0-44) 03/06/20 04:34 POC ABG Base Excess 8.7 03/08/20 12:34 ABG Base Excess 11.4 mmol/L (-2.0-3.0) H 03/06/20 04:34 ABG Hemoglobin 10.9 (12.0-17.5) L 03/08/20 12:34 ABG Oxyhemoglobin 95.9 (94-98) 03/08/20 12:34 ABG Carboxyhemoglobin 1.7 % (0.0-5.0) 03/06/20 04:34 ABG Methemoglobin 0.3 (0.0-1.5) 03/08/20 12:34 ABG Sodium 143.6 mmol/L (136.0-145.0) 03/08/20 12:34 ABG Potassium 3.8 mmol/L (3.40-4.50) 03/08/20 12:34 ABG Chloride 102.0 mmol/L (98-107) 03/08/20 12:34 ABG Glucose 176 mg/dL (65-95) H 03/08/20 12:34 Oxyhemoglobin 94.7 % (95.0-99.0) L 03/06/20 04:34 Carboxyhemoglobin 0.7 (0.5-1.5) 03/08/20 12:34 FiO2 30 03/08/20 12:34 Sodium 140 mmol/L (137-145) 04/25/20 06:34 Potassium 4.2 mmol/L (3.6-5.0) 04/25/20 06:34 Chloride 98.6 mmol/L (98-107) 04/25/20 06:34 Carbon Dioxide 39 mmol/L (22-30) H 04/25/20 06:34 Anion Gap 7 mmol/L 04/25/20 06:34 BUN 18 mg/dL (9-20) 04/25/20 06:34 Creatinine < 0.2 mg/dL (0.8-1.3) L 04/25/20 06:34 Estimated GFR > 60 ml/min 04/25/20 06:34 BUN/Creatinine Ratio 90 % 04/25/20 06:34 Glucose 103 mg/dL (75-100) H 04/25/20 06:34 POC Glucose 90 mg/dL (70-105) 04/26/20 11:42 Lactic Acid 1.00 mmol/L (0.7-2.0) 02/24/20 12:07 Calcium 9.1 mg/dL (8.4-10.2) 04/25/20 06:34 Phosphorus 3.30 mg/dL (2.5-4.5) 03/29/20 14:35 Magnesium 1.90 mg/dL (1.7-2.3) 04/12/20 09:07 Ferritin 1715.0 ng/mL (30.0-300.0) H 02/24/20 10:01 Total Bilirubin 0.20 mg/dL (0.1-1.2) 04/12/20 09:07 AST 15 units/L (5-40) 04/12/20 09:07 ALT 15 units/L (7-56) 04/12/20 09:07 Alkaline Phosphatase 62 units/L (35-129) 04/12/20 09:07 Lactate Dehydrogenase 303 units/L (91-180) H 02/24/20 09:19 Total Creatine Kinase 47 units/L (55-170) L 03/28/20 17:17 CK-MB (CK-2) 2.2 ng/mL (0.0-4.0) 03/28/20 17:17 CK-MB (CK-2) Rel Index 4.6 (0-4) H 03/28/20 17:17 Troponin T 0.181 ng/mL (0.00-0.029) H* 04/24/20 05:28 C-Reactive Protein 4.70 mg/dL (0.00-1.30) H 02/28/20 11:05 NT-Pro-B Natriuret Pep 48.30 pg/mL (0-900) 02/24/20 09:19 Total Protein 6.7 g/dL (6.3-8.2) 04/12/20 09:07 Albumin 2.7 g/dL (3.9-5) L 04/12/20 09:07 Albumin/Globulin Ratio 0.7 % 04/12/20 09:07 Prealbumin 0.090 g/L (0.200-0.400) L 02/28/20 12:54 Triglycerides 62 mg/dL (2-149) 04/23/20 04:28 Cholesterol 104 mg/dL (50-199) 04/23/20 04:28 LDL Cholesterol Direct 66 mg/dL (50-130) 04/23/20 04:28 HDL Cholesterol 29 mg/dL (40-59) L 04/23/20 04:28 Cholesterol/HDL Ratio 3.58 % 04/23/20 04:28 Procalcitonin < 0.05 ng/mL (<0.15) 03/28/20 17:12 Arterial Blood Glucose 176 mg/dL (65-95) H 03/08/20 12:34 Arterial Blood Ionized Calcium 4.5 mg/dL (4.6-5.3) L 03/08/20 12:34 Urine Color Yellow (Yellow) 03/28/20 11:36 Urine Turbidity Hazy (Clear) 03/28/20 11:36 Urine pH 5.0 (5.0-7.0) 03/28/20 11:36 Ur Specific [place] 1.026 (1.003-1.030) 03/28/20 11:36 Urine Protein 100 mg/dl mg/dL (Negative) 03/28/20 11:36 Urine Glucose (UA) Neg mg/dL (Negative) 03/28/20 11:36 Urine Ketones Neg mg/dL (Negative) 03/28/20 11:36 Urine Blood Neg (Negative) 03/28/20 11:36 Urine Nitrite Neg (Negative) 03/28/20 11:36 Urine Bilirubin Neg (Negative) 03/28/20 11:36 Urine Urobilinogen 4.0 mg/dL (<2.0) 03/28/20 11:36 Ur Leukocyte Esterase Mod (Negative) 03/28/20 11:36 Urine WBC (Auto) 39.0 /HPF (0.0-6.0) H 03/28/20 11:36 Urine RBC (Auto) 16.0 /HPF (0.0-6.0) 03/28/20 11:36 U Epithel Cells (Auto) < 1.0 /HPF (0-13.0) 03/08/20 08:57 Urine Bacteria (Auto) 2+ /HPF (Negative) 03/28/20 11:36 Urine Mucus 3+ /HPF 03/28/20 11:36 Urine Yeast (Budding) 2+ /HPF 03/28/20 11:36 Vancomycin Trough 8.0 ug/mL (5.0-20.0) 03/04/20 08:59 Coronavirus (PCR) Negative (Negative) 02/25/20 09:03 - Diagnostic Impressions Diagnostic Impressions: Echocardiogram 02/26/20 10:41 Transthoracic Echocardiogram Indication: Elevated Trop BP: 116/75 HR: 85 Conclusions *Global left ventricular wall motion and contractility are within normal limits. *The estimated ejection fraction is 50-55%. *Abnormal left ventricular diastolic filling is observed, consistent with impaired relaxation. *There is no pericardial effusion. Findings Left Ventricle: The left ventricular chamber size is normal. Global left ventricular wall motion and contractility are within normal limits. Global left ventricular systolic function is normal. The estimated ejection fraction is 50-55%. Abnormal left ventricular diastolic filling is observed, consistent with impaired relaxation. Left Atrium: The left atrial chamber size is normal. Right Ventricle: The right ventricular cavity size is normal. Right Atrium: The right atrial cavity size is normal. Aortic Valve: Mild aortic leaflet calcification is visualized. There is no evidence of aortic regurgitation. Mitral Valve: The mitral valve leaflets are mildly thickened. There is no evidence of mitral regurgitation. Tricuspid Valve: The tricuspid valve leaflets are normal. There is trace tricuspid regurgitation. The right ventricular systolic pressure is calculated at 29 mmHg. Pulmonic Valve: The pulmonic valve is not well visualized. Pericardium: There is no pericardial effusion. Aorta: The aorta appears normal. Venous: The inferior vena cava is dilated. There is less than 50% respiratory change in the inferior vena cava dimension. Measurements Chambers 2D Name Value Normal Range IVSd (2D) 0.97 cm (0.6 - 1.1) LVPWd (2D) 0.93 cm (0.6 - 1.1) LVIDd (2D) 4 cm (3.7 - 5.6) LVIDs (2D) 2.73 cm (2 - 3.8) LV FS (2D) 31.67 % - EF Teichholz (2D) 60.23 % - Ao root diameter (2D) 3.51 cm (2 - 3.7) Volumes/Mass Name Value Normal Range LA ESV SP 4CH (A/L) 8.43 ml - LA ESV SP 2CH (A/L) 18.89 ml - LA ESV BP (A/L) 13.02 ml - LA ESV BP (A/L) index 8.8 ml/m2 - LA ESV SP 4CH (MOD) 7.22 ml - LA ESV SP 2CH (MOD) 18.15 ml - LA ESV BP (MOD) 11.47 ml - LA ESV BP (MOD) index 7.75 ml/m2 - Diastolic/Systolic Function Name Value Normal Range MV E-wave Vmax 0.51 m/sec - MV deceleration time 180.22 msec - MV A-wave Vmax 0.62 m/sec - MV E:A ratio 0.82 ratio - Aortic Valve Name Value Normal Range AV Vmax 1.17 m/sec - AV VTI 19.71 cm - AV peak gradient 5.44 mmHg - AV mean gradient 3.38 mmHg - LVOT diameter 2.26 cm - LVOT Vmax 0.89 m/sec - LVOT VTI 13.72 cm - LVOT peak gradient 3.17 mmHg - LVOT mean gradient 1.67 mmHg - SV LVOT 55.03 ml - SHARAD (continuity Vmax) 3.06 cm2 - SHARAD (continuity VTI) 2.79 cm2 - Tricuspid Valve Name Value Normal Range TR Vmax 2.3 m/sec - TR peak gradient 21 mmHg - RAP 8 mmHg - RVSP 29 mmHg - IVC diameter 2.59 cm (1.2 - 2.3) Pulmonic Valve/Qp:Qs Name Value Normal Range PV acceleration time 68.51 msec - Drake/IV: Voiding Method Indwelling Catheter IV Catheter Type [Right Wrist] INT / Saline Lock IV Catheter Type [Left Hand] Peripheral IV IV Catheter Type [Right Hand] Peripheral IV IV Catheter Type [Left Wrist] Peripheral IV IV Catheter Type [Right Peripheral IV Forearm] IV Catheter Type [Right Triple Lumen Cath Internal Jugular] IV Catheter Type [Left Forearm INT / Saline Lock ] IV Catheter Type [Right Triple Lumen Cath Femoral] IV Catheter Type [Right INT / Saline Lock Antecubital] Active Medications - Current Medications Current Medications: Generic Name Dose Route Start Last Admin Trade Name Jimmieq PRN Reason Stop Dose Admin Acetaminophen 650 mg 02/24/20 15:13 04/21/20 21:32 Acetaminophen 325 Mg Tab PO 650 mg Q4H PRN Administration Pain, Mild (1-3) Albuterol 2.5 mg 02/24/20 15:13 Albuterol 2.5 Mg/3 Ml Nebu IH Q4HRT PRN Shortness Of Breath Alprazolam 0.5 mg 03/30/20 14:19 04/26/20 03:12 Xanax PO 0.5 mg Q8H PRN Administration Anxiety Lipase/Protease/Amylase 1 each 02/26/20 11:16 Lipase 10,500/Protease 25,000/Amylase 43,750 (Units) Dr Larry FEEDTUBE PRN PRN For Clogged Feeding Tube Baclofen 10 mg 04/03/20 12:00 04/26/20 09:22 Lioresal PO 10 mg BID ALISA Administration Bisacodyl 10 mg 03/12/20 18:00 04/12/20 09:26 Bisacodyl 10 Mg Rect Supp SD 10 mg QDAY PRN Administration Bowel Movement Docusate Sodium 100 mg 04/03/20 12:00 04/26/20 09:22 Colace FEEDTUBE 100 mg BID ALISA Administration Enoxaparin Sodium 40 mg 03/20/20 22:00 04/25/20 21:29 Enoxaparin 40 Mg/0.4 Ml Inj SUB-Q 40 mg QDAY@2200 ALISA Administration Protocol Glycopyrrolate 2 mg 04/16/20 20:00 04/26/20 08:15 Glycopyrrolate 1 Mg Tab PO 2 mg TID ALISA Administration Lansoprazole 30 mg 02/28/20 10:00 04/26/20 09:23 Lansoprazole 30 Mg Solutab FEEDTUBE 30 mg QDAY ALISA Administration Lidocaine 1 each 03/31/20 10:00 04/26/20 09:23 Lidoderm 5% TD 1 each QDAY ALISA Administration Lidocaine HCl 15 ml 04/15/20 14:00 04/26/20 08:15 Magic Mouthwash 30ml PO 15 ml TID ALISA Administration Magnesium Hydroxide 30 ml 04/12/20 19:20 04/25/20 21:29 Magnesium Hydroxide (Mom) Oral Liqd Udc PO 30 ml Q4H PRN Administration Constipation Metoprolol Tartrate 12.5 mg 02/24/20 22:00 04/26/20 09:23 Metoprolol Tartrate 25 Mg Tab PO 12.5 mg BID ALISA Administration Morphine Sulfate 2 mg 02/29/20 16:42 04/26/20 04:35 Morphine IV 2 mg Q4H PRN Administration Pain, Moderate (4-6) Nitroglycerin 0.4 mg 04/24/20 02:03 Nitroglycerin 0.4 Mg Tab Subl SL .Q5MIN PRN Chest Pain Pregabalin 150 mg 04/03/20 12:00 04/26/20 09:23 Pregabalin PO 150 mg BID ALISA Administration Scopolamine 1 each 03/03/20 14:00 04/26/20 09:23 Transderm-Scop TD 1 each Q3D ALISA Administration Senna 17.2 mg 04/03/20 22:00 04/25/20 21:30 Senokot PO 17.2 mg QHS ALISA Administration Simple Syrup 15 ml 02/26/20 11:16 Simple Syrup 15 Ml FEEDTUBE PRN PRN Hypoglycemia Simple Syrup 30 ml 02/26/20 11:16 Simple Syrup 15 Ml FEEDTUBE PRN PRN Hypoglycemia Sodium Bicarbonate 325 mg 02/26/20 11:16 Sodium Bicarbonate 325 Mg Tab FEEDTUBE PRN PRN For Clogged Feeding Tube Sodium Hypochlorite 1 applic 03/31/20 13:00 04/26/20 09:24 Dakin's Half Strength TP 1 applicatio BID ALISA Administration Tamsulosin HCl 0.4 mg 03/09/20 18:00 04/26/20 09:23 Tamsulosin 0.4 Mg Cap PO 0.4 mg QDAY ALISA Administration Tramadol HCl 50 mg 04/22/20 11:35 04/26/20 03:12 Tramadol 50 Mg Tab PO 50 mg Q6H PRN Administration Pain, Moderate (4-6) Zolpidem Tartrate 10 mg 03/31/20 20:15 04/25/20 21:29 Ambien PO 10 mg QHS PRN Administration Sleep Nutrition/Malnutrition Assess - Dietary Evaluation Nutrition/Malnutrition Findings: Nutrition Notes Start: 02/26/20 10:40 Freq: Status: Active Protocol: Document 04/25/20 11:14 LM (Rec: 04/25/20 11:20 LM [email or web address]) Nutrition Notes Initial or Follow up Reassessment Current Diagnosis Decubitus(Pressure Ulcer), Sepsis,Respiratory Failure Other Pertinent Diagnosis COVID-19 (-), ALS, pneumonia, Hip/buttock PU Current Diet Vital AF 1.2 at 75ml/hr (goal rate) Labs/Tests Reviewed Pertinent Medications Reviewed Height 6 ft Weight 67 kg [place] Body Weight (kg) 80.90 BMI 20.0 Weight change and time frame Wt change noted Weight Status Appropriate Subjective/Other Information Observed TF running at goal rate. Percent of energy/protein needs met: 87%/100% Burn Absent Trauma Absent GI Symptoms None Skin Integrity/Comment Pressure Ulcer Stage 2 Current % PO Negligible Minimum of two criteria Yes Body Fat Depletion Mild depletion (non-severe) Muscle Mass Mild Depletion (non-severe) Reduced Chart Picker Strength Measurably Reduced (severe) #3 Nutrition Diagnosis Malnutrition Diagnosis Progress(for reassessment Continues documentation) #2 Nutrition Diagnosis Inadequate oral intake Diagnosis Progress(for reassessment Continues documentation) #1 Nutrition Diagnosis Increased nutrient needs ( specify in comment below) Diagnosis Progress(for reassessment Continues documentation) Is patient on ventilator? Yes Is Patient Ambulatory and/or Out of Bed No REE-([place] Jeor-confined to bed) 1832.460 Kcal/Kg value to use for calculation 37 Approximate Energy Requirements Using 2479 kcal/Kg Calculation Used for Recommendations Kcal/kg Additional Notes Protein needs: 88-147 g (1.2-2 g/ kg ABW) Fluid: 1ml/kcal Nutrition Intervention Change Diet Order: Continue TF Nutrition Support: Vital AF 1.2 at 75ml/hr. Flush 150ml q4h Kcal 2,160 Protein (gm) 135 Fluid (mL) 1,460 Add Supplement/Snack (indicate name/kcal Will BID /protein ) Provides kCal: 190 Provides Protein (gm) 5 Goal #1 Meet at least 80% of energy and protein needs via TF Goal #2 Wound healing Anticipated Discharge Needs: Unable to determine at this time Follow-Up By: 05/02/20 Additional Comments F/U for TF tolerance
[2020-04-26] MEDS: ENOXAPARIN 40 MG/0.4 ML INJ SUB-Q SCH (22:32)
[2020-04-26] MEDS: SENNOSIDES 8.6 MG TAB PO SCH (22:34)
[2020-04-26] MEDS: ZOLPIDEM 5 MG TAB PO PRN (22:35)
[2020-04-27] MEDS: MORPHINE 2 MG/1 ML INJ IV PRN ×5 (04:50→22:53)
[2020-04-27] MEDS: traMADol 50 MG TAB PO PRN (05:57)
[2020-04-27] MEDS: ALPRAZolam 0.5 MG TAB PO PRN ×2 (05:58→14:28)
[2020-04-27] MEDS: METOPROLOL TARTRATE 25 MG TAB PO SCH ×2 (09:01→22:33)
[2020-04-27] MEDS: MAGIC MOUTHWASH 30ML PO SCH ×3 (09:01→22:29)
[2020-04-27] MEDS: LANSOPRAZOLE 30 MG SOLUTAB FEEDTUBE SCH (09:01)
[2020-04-27] MEDS: GLYCOPYRROLATE 1 MG TAB PO SCH ×3 (09:01→22:30)
[2020-04-27] MEDS: DOCUSATE SODIUM 100 MG/10 ML ORAL LIQD FEEDTUBE SCH ×3 (09:01→22:31)
[2020-04-27] MEDS: BACLOFEN 10 MG TAB PO SCH ×2 (09:01→22:32)
[2020-04-27] MEDS: SODIUM HYPOCHLORITE, DAKIN'S 1/2 STRENGTH (0.25%) 473 ML TOPICAL SOLN TP SCH ×2 (09:02→22:31)
[2020-04-27] MEDS: LIDOCAINE 5% 1 EACH PATCH TD SCH (09:02)
[2020-04-27] MEDS: TAMSULOSIN 0.4 MG CAP PO SCH (09:03)
[2020-04-27] MEDS: PREGABALIN 75 MG CAP PO SCH ×2 (09:57→22:34)
--- NOTE | 2020-04-27 12:59 | Progress Note ---
Assessment and Plan Assessment and plan: Assessment and plan: --Acute hypoxic hypercapnic respiratory failure; S/p tracheostomy on ventilatory support etiology secondary to sepsis, ALS, multifocal pneumonia (Covid negative). Pulmonary following --ALS --Oral thrush Nystatin/Magic mouthwash swish and spit --Constipation; Patient already received Dulcolax suppository and Colace Received milk of magnesia, with relief --History of ALS - Stable --Elevated D-dimers; imaging studies negative for PE and DVT --Bilateral pneumonia; probably community-acquired Completed the treatment, continue supportive care --Sepsis secondary to pneumonia; completed the treatment resolved --Elevated troponin Cardiology to revaluate his chest pain and elevated troponin Started him on low dose aspirin for now --Febrile illness; resolved ,secondary to pneumonia Complete antibiotics , resolved --DVT prophylaxis; Lovenox. 02/25/2020. CTA of the chest reveals no PE but does illustrate the bilateral pneumonia. Doppler ultrasound also negative for DVT. Blood cultures are pending. Await COVID-19 testing. Patient currently requiring BiPAP IPAP 24/EPAP 6 with FiO2 of 25%. Continue O2 and BiPAP as clinically indicated. ID and pulmonary consulted. 02/26/2020. Blood cultures are negative x48 hours and Covid testing negative as well. Continue antibiotics per ID recommendations for community-acquired bilateral pneumonia. Cardiology consultation for elevated troponin. Check echocardiogram. 02/27/2020. Events of yesterday noted with asystole following V. fib arrest. Patient currently on AC mode rate 20, tidal volume 400, FiO2 50% and a PEEP of 6. Follow-up echocardiogram for elevated troponin. Cardiology suspects NSTEMI Type 2 in the setting of acute resp failure. Chest CTA and BLE Dopplers neg. we will discontinue Decadron given the Covid PCR is negative. 02/28/2020. I spoke with the sister Felisa Eli who is the power of insurance attorney regarding advanced directives and she instructed me that she would like to continue with aggressive care at this time. I informed her of the guarded prognosis and high mortality/morbidity and she voiced understanding. Patient currently with AC mode ventilation rate 18, tidal volume 400, FiO2 40% and a PEEP of 6. Continue antibiotics for pneumonia. ID previously consulted. Also consult neurology with regards to ALS. 02/29/2020; patient is intubated and on CPAP patient is alert and oriented. Patient has ALS. Dr. Álvarez spoke with his sister and she wants aggressive care. Continue antibiotics for pneumonia. Neurology consulted for ALS. Prognosis poor 03/01/2020; patient is intubated and on CPAP, patient is alert and oriented. I spoke with his 2 sisters about the management plan. 03/02/2020; patient is intubated and on CPAP. Patient was alert and oriented. I spoke with Dr. mohr and he thinks patient may need mechanical ventilation, likely his disease progressed. Dr. Flowers did debridement this morning. 03/03/2020; patient is intubated and on CPAP, patient was on trilogy and BiPAP at home. Patient has ALS. on spontaneous breathing trial. Patient is alert and oriented but quadriplegic. Patient has severe bilateral pneumonia and is on cefepime and Vanco, ID is following. Patient has sacral decubitus ulcer and debridement was done by Dr. Flowers and there is no osteomyelitis. 03/05. Patient still on broad-spectrum antibiotics. Status post sacral decubitus ulcer debridements-no osteomyelitis. Patient is on AC 25/400/30% PEEP 5. No blood gas results today. 03/06. Plan for tracheostomy by surgery. Still remains intubated. Labs reviewed-sodium 150. Started on free water 200 every 8hr. trend sodium. 03/07: s/p trach placement today, patient placed back on mechanical ventilation with trach. Plan to resume tube feeding with NG tube. Continue to monitor vitals, monitor BMP. 03/08: Patient noted to have distended abdomen with low urinary output. Obtain bladder scan rule out urine retention, UA and urine culture, continue to follow clinically. 03/09: Patient noted to have low blood pressure with SBP as low as 70s. Ordered for 500 mils normal saline bolus. CT abdomen showed bladder outlet obstruction, urology consulted. 03/10: placed on drake by urology o/n, improved urine outpt. cont to monitor BMP. resuded TF - cont free water with TF. wean off from vent as tolerated. 03/11: Vitals stable. cont TF, wean off from vent as tolerated. start on 1/2 NS for hypernatremia - follow BMP 03/12: wean off vent as tolerated, plan for speech eval, cont Tf for now, cont iv fluid 03/13: unable to wean off from vent, unable to do speech therapy eval. will need PEG tube, cont supportive care for now, cont NG tube feeding 03/14: consulted GI for PEg placemnet, cont supportive care. remains on vent at night 03/15: Discussed with GI, plan for PEG tube placement possibly tomorrow. Continue supportive care and wean off from vent as tolerated. Hold Lovenox dose tonight. 03/16: family didnot consent for PEG placement yesterday. I spoke with the daughter today and she is now agreeable for PEG tube. I explained the necessity of the procedure with RN to the patient also and he nodded started on tube feeding, for the procedure. will cont supportive care. planned for PEG tube placement tomorrow. 03/17: s/p PEG placement today, patient tolerated well, cont supportive care 03/18: Started on tube feeding with new PEG tube, continue to wean off vent as tolerated 03/19: cont to monitor with supportive care, wean off vent as tolerated 03/20: Continue to wean off vent as tolerated -but failing weaning trial. Still requiring vent support at night. Currently on PEG tube for tube feed. 03/21. Pt with PSV trials with FiO@ 30%, PEEP 6, PS 10. Currently on PEG tube for tube feed. 03/22/2020. Continue PSV trials per pulmonary. Continue bronchodilators. Patient tolerating tube feedings. Continue Robinul for secretion control. 03/23/2020. Continue PSV trials per pulmonary. Continue bronchodilators. Co ntinue Scopolamine and Robinul for secretion control. Trach care/airway management. Mobility protocols for pressure ulcer prophylaxis. LTAC evaluation per case management 03/24/2020. Continue PSV trials with current settings pressure support 10, PEEP 6 and FiO2 30%. Continue bronchodilators/nebulizer. Continue Scopolamine and Robinul for secretion control. Trach care/airway management. Mobility protocols for pressure ulcer prophylaxis. LTAC evaluation per case management 03/25/2020. Pulmonary to proceed with T-piece trials today. Continue bronchodilators/nebulizer. Continue Scopolamine and Robinul for secretion control. Trach care/airway management. Mobility protocols for pressure ulcer prophylaxis. 03/26/2020. Patient currently with PSV 10/6 at FiO2 of 30%. Continue weaning and T-piece trials per protocol. Continue bronchodilators/nebulizer. Continue Scopolamine and Robinul for secretion control. Trach care/airway management. Mobility protocols for pressure ulcer prophylaxis. Continue tube feeding with aspiration precautions. 03/27/2020. Patient currently with PSV 01/31 at FiO2 of 30%. Continue weaning and T-piece trials per protocol. Continue bronchodilators/nebulizer. Continue Scopolamine and Robinul for secretion control. Trach care/airway management. Mobility protocols for pressure ulcer prophylaxis. Continue tube feeding with aspiration precautions. 03/28. Had temp 100.7F. He has been off antibiotics. Will send blood culture, ua, urine culture and chest xray. Had chest pain overnight and trop was elevated as well. Cardiology to evaluate 03/29. Has back pain due to position. He mentions his chest pain is positional. Has no other complaints. Still on mechanical ventilation 03/30. No chest pain today. Labs reviewed. Discussed chest pain with cardiology and team advised no further work up at this time. Can follow up with cardiology in the office after hospitalization 03/31. Lidocaine patch for lower back pain. 04/01. Discharge planning underway. CM notes reviewed. Discussed with daughter 04/02 - . CM trying to arrange discharge. Continue PSV trials. Discussed with patients significant other 04/04/2020; CM is working for discharge arrangement. Continue PSV trials. 04/05/2020; patient was seen and evaluated this morning and no change from baseline. Continue with PSV trials. Follow with claims consultant for discharge planning. 04/06/2020;patient was seen and evaluated this morning and no change from baseline. Continue with PSV trials. Follow with claims consultant for discharge planning. 04/07/2020; patient was seen and evaluated this morning and no change from baseline. Continue with PSV trials. Follow with claims consultant for discharge planning. 04/08/2020; patient is vent dependent. Discharge is per claims consultant. 04/09/2020 patient is vent dependent, possible LTAC placement 04/10/2020; tracheostomy on vent, vent dependent pending LTAC placement 04/11/2020; clinically no change, tracheostomy on ventilatory support, wean as tolerated, awaiting placement 04/12/2020; remains on ventilatory support, unable to wean, patient wants to see a speech therapist for sound box However we cannot try that as long as he is on ventilatory support, once he is weaned off vent We will consult speech therapist, plan of care reviewed with the patient and his nurse 04/14/2020; clinically no change, on ventilatory support, complains of constipation, milk of magnesia Closely monitor the patient and adjust the management as needed 04/15/2020; patient has some oral thrush on the tongue, will give Magic mouthwash/nystatin swish and spit Wean off vent as tolerated 04/16 patient is alert and oriented, unable to comprehend what he is trying to tell but appears to complain of some pain, no acute events overnight, all interdisciplinary notes reviewed. Waiting for LTAC versus custodial facility placement 04/17/2020. Continue supportive care with mechanical ventilation. Patient currently on AC mode rate 10, tidal volume 400 FiO2 30% with a PEEP of 6. Discharge planning per case management. 04/18/2020. Patient remains on mechanical ventilation AC mode rate 10, tidal volume 400, FiO2 30% and PEEP of 6. Continue spontaneous breathing trials as tolerated. Previously, patient was considered for discharge home with skilled staff providing care for 12 hours 7 days/week. Continue discussed with case management discharge planning. 04/19/20. Patient remains on mechanical ventilation AC mode rate 10, tidal vo lume 400, FiO2 30% and PEEP of 6. Continue spontaneous breathing trials as tolerated. 04/20/2020. Patient remains on mechanical ventilation AC mode rate 10, tidal volume 400, FiO2 30% and PEEP of 6. Continue spontaneous breathing trials as tolerated. 04/21/2020. Patient remains on mechanical ventilation AC mode rate 10, tidal volume 400, FiO2 30% and PEEP of 6. Continue tracheostomy care, secretion control and airway management. Continue spontaneous breathing trials as tolerated. 04/22/2020. Patient remains on mechanical ventilation AC mode rate 10, tidal volume 400, FiO2 30% and PEEP of 6. Continue tracheostomy care, secretion control and airway management. Continue spontaneous breathing trials as tolerated. 04/23/2020. Patient on mechanical ventilation AC mode rate 18, tidal volume 450, FiO2 30% and PEEP of 6. Continue tracheostomy care, secretion control and airway management. Continue spontaneous breathing trials as tolerated. Continue Robinul and scopolamine for secretions. Continue baclofen. 04/24/2020. Patient remains on AC mode ventilation rate 10, tidal volume 400, FiO2 30% and PEEP of 6. Continue tracheostomy care, secretion control and airway management. Continue spontaneous breathing trials as tolerated. Continue Robinul and scopolamine for secretions. Continue baclofen. Continue Xanax for anxiety and Ambien for sleep. Await case management follow-up with regards to discharge planning. 04/25/2020. Patient remains on AC mode ventilation rate 10, tidal volume 400, FiO2 30% and PEEP of 6. Continue tracheostomy care, secretion control and airway management. Continue spontaneous breathing trials as tolerated. Continue Robinul and scopolamine for secretions. Continue baclofen. Continue Xanax for anxiety and Ambien for sleep. Await case management follow-up with regards to discharge planning. 04/26. Patient remains on AC mode ventilation rate 10, tidal volume 400, FiO2 30% and PEEP of 6. Continue tracheostomy care, secretion control and airway management. Continue spontaneous breathing trials as tolerated. Continue Robinul and scopolamine for secretions. Continue baclofen. Continue Xanax for anxiety and Ambien for sleep. Await case management follow-up with regards to discharge planning. 04/27. Patient remains on AC mode ventilation rate 10, tidal volume 400, FiO2 30% and PEEP of 6. Continue tracheostomy care, secretion control and airway management. Continue spontaneous breathing trials as tolerated. Continue Robinul and scopolamine for secretions. Continue baclofen. Continue Xanax for anxiety and Ambien for sleep. Await case management follow-up with regards to discharge planning. review of records showed he had chest pain on 04/24 and his last troponin was higher than previous values. Patient will benefit from ischemic work up which was suggested by cardiology earlier. Will reconsult cardiology to see if this can be performed prior to DC> History Interval history: Patient seen and examined at bedside Trach in place DC planning Hospitalist Physical - Physical exam Narrative exam: VITAL SIGNS: Reviewed. GENERAL: Awake. trach to vent HEAD: No signs of head trauma. EYES: Pupils are equal. Extraocular motions intact. EARS: Hearing grossly intact. MOUTH: Oropharynx is normal. NECK: No adenopathy, no JVD. CHEST: Coarse breath sounds bilaterally CARDIAC: Regular rate and rhythm. S1 and S2, without murmurs, gallops, or rubs. VASCULAR: No Edema. Peripheral pulses normal and equal in all extremities. ABDOMEN: Soft, non tender and non distended. No rebound or guarding, and no masses palpated. Bowel Sounds normal. NEUROLOGIC EXAM: Awake SKIN: No obvious lesions - Constitutional Vitals: Temp Pulse Resp BP Pulse Ox 99 F 100 H 18 101/68 98 04/27/20 12:00 04/27/20 12:00 04/27/20 12:00 04/27/20 12:00 04/27/20 12:00 HEART Score - HEART Score Troponin: Troponin T 0.181 ng/mL (0.00-0.029) H* 04/24/20 05:28 Results - Labs CBC & Chem 7: 04/25/20 06:34 04/25/20 06:34 Labs: Laboratory Last Values WBC 11.7 K/mm3 (4.5-11.0) H 04/25/20 06:34 RBC 3.87 M/mm3 (3.65-5.03) 04/25/20 06:34 Hgb 10.0 gm/dl (11.8-15.2) L 04/25/20 06:34 Hct 31.7 % (35.5-45.6) L 04/25/20 06:34 MCV 82 fl (84-94) L 04/25/20 06:34 MCH 26 pg (28-32) L 04/25/20 06:34 MCHC 32 % (32-34) 04/25/20 06:34 RDW 17.5 % (13.2-15.2) H 04/25/20 06:34 Plt Count 564 K/mm3 (140-440) H 04/25/20 06:34 Lymph % (Auto) 23.6 % (13.4-35.0) 04/23/20 04:28 Ware % (Auto) 8.9 % (0.0-7.3) H 04/23/20 04:28 Eos % (Auto) 2.1 % (0.0-4.3) 04/23/20 04:28 Baso % (Auto) 0.7 % (0.0-1.8) 04/23/20 04:28 Lymph # (Auto) 1.9 K/mm3 (1.2-5.4) 04/23/20 04:28 Ware # (Auto) 0.7 K/mm3 (0.0-0.8) 04/23/20 04:28 Eos # (Auto) 0.2 K/mm3 (0.0-0.4) 04/23/20 04:28 Baso # (Auto) 0.1 K/mm3 (0.0-0.1) 04/23/20 04:28 Add Manual Diff Complete 04/25/20 06:34 Total Counted 100 04/25/20 06:34 Seg Neutrophils % 64.7 % (40.0-70.0) 04/23/20 04:28 Seg Neuts % (Manual) 78.0 % (40.0-70.0) H 04/25/20 06:34 Band Neutrophils % 1.0 % 04/22/20 07:45 Lymphocytes % (Manual) 10.0 % (13.4-35.0) L 04/25/20 06:34 Reactive Lymphs % (Man) 1.0 % 04/22/20 07:45 Monocytes % (Manual) 9.0 % (0.0-7.3) H 04/25/20 06:34 Eosinophils % (Manual) 2.0 % (0.0-4.3) 04/25/20 06:34 Basophils % (Manual) 1.0 % (0.0-1.8) 04/25/20 06:34 Metamyelocytes % 3.0 % 04/12/20 09:07 Myelocytes % 0 % 03/28/20 10:28 Promyelocytes % 0 % 03/28/20 10:28 Blast Cells % 0 % 03/28/20 10:28 Nucleated RBC % Not Reportable 04/25/20 06:34 Seg Neutrophils # 5.2 K/mm3 (1.8-7.7) 04/23/20 04:28 Seg Neutrophils # Man 9.1 K/mm3 (1.8-7.7) H 04/25/20 06:34 Band Neutrophils # 0.0 K/mm3 04/25/20 06:34 Lymphocytes # (Manual) 1.2 K/mm3 (1.2-5.4) 04/25/20 06:34 Abs React Lymphs (Man) 0.0 K/mm3 04/25/20 06:34 Monocytes # (Manual) 1.1 K/mm3 (0.0-0.8) H 04/25/20 06:34 Eosinophils # (Manual) 0.2 K/mm3 (0.0-0.4) 04/25/20 06:34 Basophils # (Manual) 0.1 K/mm3 (0.0-0.1) 04/25/20 06:34 Metamyelocytes # 0.0 K/mm3 04/25/20 06:34 Myelocytes # 0.0 K/mm3 04/25/20 06:34 Promyelocytes # 0.0 K/mm3 04/25/20 06:34 Blast Cells # 0.0 K/mm3 04/25/20 06:34 WBC Morphology Not Reportable 04/25/20 06:34 Hypersegmented Neuts Not Reportable 04/25/20 06:34 Hyposegmented Neuts Not Reportable 04/25/20 06:34 Hypogranular Neuts Not Reportable 04/25/20 06:34 Smudge Cells Not Reportable 04/25/20 06:34 Toxic Granulation Not Reportable 04/25/20 06:34 Toxic Vacuolation Not Reportable 04/25/20 06:34 Dohle Bodies Not Reportable 04/25/20 06:34 Pelger-Huet Anomaly Not Reportable 04/25/20 06:34 Robert Rods Not Reportable 04/25/20 06:34 Platelet Estimate Consistent w auto 04/25/20 06:34 Clumped Platelets Not Reportable 04/25/20 06:34 Plt Clumps, EDTA Not Reportable 04/25/20 06:34 Large Platelets Not Reportable 04/25/20 06:34 Giant Platelets Not Reportable 04/25/20 06:34 Platelet Satelliting Not Reportable 04/25/20 06:34 Plt Morphology Comment Not Reportable 04/25/20 06:34 RBC Morphology Not Reportable 04/25/20 06:34 Dimorphic RBCs Not Reportable 04/25/20 06:34 Polychromasia Not Reportable 04/25/20 06:34 Hypochromasia 1+ 04/25/20 06:34 Poikilocytosis Not Reportable 04/25/20 06:34 Anisocytosis Few 04/25/20 06:34 Microcytosis Not Reportable 04/25/20 06:34 Macrocytosis Not Reportable 04/25/20 06:34 Spherocytes Not Reportable 04/25/20 06:34 Pappenheimer Bodies Not Reportable 04/25/20 06:34 Sickle Cells Not Reportable 04/25/20 06:34 Target Cells Not Reportable 04/25/20 06:34 Stomatocytes Few 03/17/20 04:40 Tear Drop Cells Not Reportable 04/25/20 06:34 Ovalocytes Not Reportable 04/25/20 06:34 Helmet Cells Not Reportable 04/25/20 06:34 Gregory-Louviers Bodies Not Reportable 04/25/20 06:34 Switzer Rings Not Reportable 04/25/20 06:34 [place] Cells Not Reportable 04/25/20 06:34 Bite Cells Not Reportable 04/25/20 06:34 Crenated Cell Not Reportable 04/25/20 06:34 Elliptocytes Not Reportable 04/25/20 06:34 Acanthocytes (Spur) Not Reportable 04/25/20 06:34 Rouleaux Not Reportable 04/25/20 06:34 Hemoglobin C Crystals Not Reportable 04/25/20 06:34 Schistocytes 1+ 04/25/20 06:34 Malaria parasites Not Reportable 04/25/20 06:34 Colton Bodies Not Reportable 04/25/20 06:34 Hem Pathologist Commnt No 04/25/20 06:34 PT 15.6 Sec. (12.2-14.9) H 02/24/20 09:19 INR 1.21 (0.87-1.13) H 02/24/20 09:19 APTT 25.4 Sec. (24.2-36.6) 02/24/20 09:19 D-Dimer 1311.96 ng/mlDDU (0-234) H 02/24/20 09:19 ABG pH 7.371 (7.320-7.450) 03/08/20 12:34 POC ABG pCO2 63.1 mmHg (32.0-48.0) H 03/08/20 12:34 ABG pCO2 60.1 mm Hg 03/06/20 04:34 POC ABG pO2 90.5 mmHg (83-108) 03/08/20 12:34 ABG pO2 88.6 mm Hg (80.0-90.0) 03/06/20 04:34 POC ABG HCO3 35.7 03/08/20 12:34 ABG HCO3 37.9 mmol/L (20.0-26.0) H 03/06/20 04:34 ABG O2 Saturation 97.0 % (95.0-99.0) 03/06/20 04:34 ABG O2 Content 14.3 (0.0-44) 03/06/20 04:34 POC ABG Base Excess 8.7 03/08/20 12:34 ABG Base Excess 11.4 mmol/L (-2.0-3.0) H 03/06/20 04:34 ABG Hemoglobin 10.9 (12.0-17.5) L 03/08/20 12:34 ABG Oxyhemoglobin 95.9 (94-98) 03/08/20 12:34 ABG Carboxyhemoglobin 1.7 % (0.0-5.0) 03/06/20 04:34 ABG Methemoglobin 0.3 (0.0-1.5) 03/08/20 12:34 ABG Sodium 143.6 mmol/L (136.0-145.0) 03/08/20 12:34 ABG Potassium 3.8 mmol/L (3.40-4.50) 03/08/20 12:34 ABG Chloride 102.0 mmol/L (98-107) 03/08/20 12:34 ABG Glucose 176 mg/dL (65-95) H 03/08/20 12:34 Oxyhemoglobin 94.7 % (95.0-99.0) L 03/06/20 04:34 Carboxyhemoglobin 0.7 (0.5-1.5) 03/08/20 12:34 FiO2 30 03/08/20 12:34 Sodium 140 mmol/L (137-145) 04/25/20 06:34 Potassium 4.2 mmol/L (3.6-5.0) 04/25/20 06:34 Chloride 98.6 mmol/L (98-107) 04/25/20 06:34 Carbon Dioxide 39 mmol/L (22-30) H 04/25/20 06:34 Anion Gap 7 mmol/L 04/25/20 06:34 BUN 18 mg/dL (9-20) 04/25/20 06:34 Creatinine < 0.2 mg/dL (0.8-1.3) L 04/25/20 06:34 Estimated GFR > 60 ml/min 04/25/20 06:34 BUN/Creatinine Ratio 90 % 04/25/20 06:34 Glucose 103 mg/dL (75-100) H 04/25/20 06:34 POC Glucose 124 mg/dL (70-105) H 04/27/20 11:48 Lactic Acid 1.00 mmol/L (0.7-2.0) 02/24/20 12:07 Calcium 9.1 mg/dL (8.4-10.2) 04/25/20 06:34 Phosphorus 3.30 mg/dL (2.5-4.5) 03/29/20 14:35 Magnesium 1.90 mg/dL (1.7-2.3) 04/12/20 09:07 Ferritin 1715.0 ng/mL (30.0-300.0) H 02/24/20 10:01 Total Bilirubin 0.20 mg/dL (0.1-1.2) 04/12/20 09:07 AST 15 units/L (5-40) 04/12/20 09:07 ALT 15 units/L (7-56) 04/12/20 09:07 Alkaline Phosphatase 62 units/L (35-129) 04/12/20 09:07 Lactate Dehydrogenase 303 units/L (91-180) H 02/24/20 09:19 Total Creatine Kinase 47 units/L (55-170) L 03/28/20 17:17 CK-MB (CK-2) 2.2 ng/mL (0.0-4.0) 03/28/20 17:17 CK-MB (CK-2) Rel Index 4.6 (0-4) H 03/28/20 17:17 Troponin T 0.181 ng/mL (0.00-0.029) H* 04/24/20 05:28 C-Reactive Protein 4.70 mg/dL (0.00-1.30) H 02/28/20 11:05 NT-Pro-B Natriuret Pep 48.30 pg/mL (0-900) 02/24/20 09:19 Total Protein 6.7 g/dL (6.3-8.2) 04/12/20 09:07 Albumin 2.7 g/dL (3.9-5) L 04/12/20 09:07 Albumin/Globulin Ratio 0.7 % 04/12/20 09:07 Prealbumin 0.090 g/L (0.200-0.400) L 02/28/20 12:54 Triglycerides 62 mg/dL (2-149) 04/23/20 04:28 Cholesterol 104 mg/dL (50-199) 04/23/20 04:28 LDL Cholesterol Direct 66 mg/dL (50-130) 04/23/20 04:28 HDL Cholesterol 29 mg/dL (40-59) L 04/23/20 04:28 Cholesterol/HDL Ratio 3.58 % 04/23/20 04:28 Procalcitonin < 0.05 ng/mL (<0.15) 03/28/20 17:12 Arterial Blood Glucose 176 mg/dL (65-95) H 03/08/20 12:34 Arterial Blood Ionized Calcium 4.5 mg/dL (4.6-5.3) L 03/08/20 12:34 Urine Color Yellow (Yellow) 03/28/20 11:36 Urine Turbidity Hazy (Clear) 03/28/20 11:36 Urine pH 5.0 (5.0-7.0) 03/28/20 11:36 Ur Specific [place] 1.026 (1.003-1.030) 03/28/20 11:36 Urine Protein 100 mg/dl mg/dL (Negative) 03/28/20 11:36 Urine Glucose (UA) Neg mg/dL (Negative) 03/28/20 11:36 Urine Ketones Neg mg/dL (Negative) 03/28/20 11:36 Urine Blood Neg (Negative) 03/28/20 11:36 Urine Nitrite Neg (Negative) 03/28/20 11:36 Urine Bilirubin Neg (Negative) 03/28/20 11:36 Urine Urobilinogen 4.0 mg/dL (<2.0) 03/28/20 11:36 Ur Leukocyte Esterase Mod (Negative) 03/28/20 11:36 Urine WBC (Auto) 39.0 /HPF (0.0-6.0) H 03/28/20 11:36 Urine RBC (Auto) 16.0 /HPF (0.0-6.0) 03/28/20 11:36 U Epithel Cells (Auto) < 1.0 /HPF (0-13.0) 03/08/20 08:57 Urine Bacteria (Auto) 2+ /HPF (Negative) 03/28/20 11:36 Urine Mucus 3+ /HPF 03/28/20 11:36 Urine Yeast (Budding) 2+ /HPF 03/28/20 11:36 Vancomycin Trough 8.0 ug/mL (5.0-20.0) 03/04/20 08:59 Coronavirus (PCR) Negative (Negative) 02/25/20 09:03 - Diagnostic Impressions Diagnostic Impressions: Echocardiogram 02/26/20 10:41 Transthoracic Echocardiogram Indication: Elevated Trop BP: 116/75 HR: 85 Conclusions *Global left ventricular wall motion and contractility are within normal limits. *The estimated ejection fraction is 50-55%. *Abnormal left ventricular diastolic filling is observed, consistent with impaired relaxation. *There is no pericardial effusion. Findings Left Ventricle: The left ventricular chamber size is normal. Global left ventricular wall motion and contractility are within normal limits. Global left ventricular systolic function is normal. The estimated ejection fraction is 50-55%. Abnormal left ventricular diastolic filling is observed, consistent with impaired relaxation. Left Atrium: The left atrial chamber size is normal. Right Ventricle: The right ventricular cavity size is normal. Right Atrium: The right atrial cavity size is normal. Aortic Valve: Mild aortic leaflet calcification is visualized. There is no evidence of aortic regurgitation. Mitral Valve: The mitral valve leaflets are mildly thickened. There is no evidence of mitral regurgitation. Tricuspid Valve: The tricuspid valve leaflets are normal. There is trace tricuspid regurgitation. The right ventricular systolic pressure is calculated at 29 mmHg. Pulmonic Valve: The pulmonic valve is not well visualized. Pericardium: There is no pericardial effusion. Aorta: The aorta appears normal. Venous: The inferior vena cava is dilated. There is less than 50% respiratory change in the inferior vena cava dimension. Measurements Chambers 2D Name Value Normal Range IVSd (2D) 0.97 cm (0.6 - 1.1) LVPWd (2D) 0.93 cm (0.6 - 1.1) LVIDd (2D) 4 cm (3.7 - 5.6) LVIDs (2D) 2.73 cm (2 - 3.8) LV FS (2D) 31.67 % - EF Teichholz (2D) 60.23 % - Ao root diameter (2D) 3.51 cm (2 - 3.7) Volumes/Mass Name Value Normal Range LA ESV SP 4CH (A/L) 8.43 ml - LA ESV SP 2CH (A/L) 18.89 ml - LA ESV BP (A/L) 13.02 ml - LA ESV BP (A/L) index 8.8 ml/m2 - LA ESV SP 4CH (MOD) 7.22 ml - LA ESV SP 2CH (MOD) 18.15 ml - LA ESV BP (MOD) 11.47 ml - LA ESV BP (MOD) index 7.75 ml/m2 - Diastolic/Systolic Function Name Value Normal Range MV E-wave Vmax 0.51 m/sec - MV deceleration time 180.22 msec - MV A-wave Vmax 0.62 m/sec - MV E:A ratio 0.82 ratio - Aortic Valve Name Value Normal Range AV Vmax 1.17 m/sec - AV VTI 19.71 cm - AV peak gradient 5.44 mmHg - AV mean gradient 3.38 mmHg - LVOT diameter 2.26 cm - LVOT Vmax 0.89 m/sec - LVOT VTI 13.72 cm - LVOT peak gradient 3.17 mmHg - LVOT mean gradient 1.67 mmHg - SV LVOT 55.03 ml - SHARAD (continuity Vmax) 3.06 cm2 - SHARAD (continuity VTI) 2.79 cm2 - Tricuspid Valve Name Value Normal Range TR Vmax 2.3 m/sec - TR peak gradient 21 mmHg - RAP 8 mmHg - RVSP 29 mmHg - IVC diameter 2.59 cm (1.2 - 2.3) Pulmonic Valve/Qp:Qs Name Value Normal Range PV acceleration time 68.51 msec - Drake/IV: Voiding Method Indwelling Catheter IV Catheter Type [Right Wrist] INT / Saline Lock IV Catheter Type [Left Hand] Peripheral IV IV Catheter Type [Right Hand] Peripheral IV IV Catheter Type [Left Wrist] Peripheral IV IV Catheter Type [Right Peripheral IV Forearm] IV Catheter Type [Right Triple Lumen Cath Internal Jugular] IV Catheter Type [Left Forearm INT / Saline Lock ] IV Catheter Type [Right Triple Lumen Cath Femoral] IV Catheter Type [Right INT / Saline Lock Antecubital] Active Medications - Current Medications Current Medications: Generic Name Dose Route Start Last Admin Trade Name Freq PRN Reason Stop Dose Admin Acetaminophen 650 mg 02/24/20 15:13 04/21/20 21:32 Acetaminophen 325 Mg Tab PO 650 mg Q4H PRN Administration Pain, Mild (1-3) Albuterol 2.5 mg 02/24/20 15:13 Albuterol 2.5 Mg/3 Ml Nebu IH Q4HRT PRN Shortness Of Breath Alprazolam 0.5 mg 03/30/20 14:19 04/27/20 05:58 Xanax PO 0.5 mg Q8H PRN Administration Anxiety Lipase/Protease/Amylase 1 each 02/26/20 11:16 Lipase 10,500/Protease 25,000/Amylase 43,750 (Units) Dr Larry FEEDTUBE PRN PRN For Clogged Feeding Tube Baclofen 10 mg 04/03/20 12:00 04/27/20 09:01 Lioresal PO 10 mg BID ALISA Administration Bisacodyl 10 mg 03/12/20 18:00 04/12/20 09:26 Bisacodyl 10 Mg Rect Supp NJ 10 mg QDAY PRN Administration Bowel Movement Docusate Sodium 100 mg 04/03/20 12:00 04/27/20 09:06 Colace FEEDTUBE Not Given BID ALISA Enoxaparin Sodium 40 mg 03/20/20 22:00 04/26/20 22:32 Enoxaparin 40 Mg/0.4 Ml Inj SUB-Q 40 mg QDAY@2200 ALISA Administration Protocol Glycopyrrolate 2 mg 04/16/20 20:00 04/27/20 09:01 Glycopyrrolate 1 Mg Tab PO 2 mg TID ALISA Administration Lansoprazole 30 mg 02/28/20 10:00 04/27/20 09:01 Lansoprazole 30 Mg Solutab FEEDTUBE 30 mg QDAY ALISA Administration Lidocaine 1 each 03/31/20 10:00 04/27/20 09:02 Lidoderm 5% TD 1 each QDAY ALISA Administration Lidocaine HCl 15 ml 04/15/20 14:00 04/27/20 09:01 Magic Mouthwash 30ml PO 15 ml TID ALISA Administration Magnesium Hydroxide 30 ml 04/12/20 19:20 04/25/20 21:29 Magnesium Hydroxide (Mom) Oral Liqd Udc PO 30 ml Q4H PRN Administration Constipation Metoprolol Tartrate 12.5 mg 02/24/20 22:00 04/27/20 09:01 Metoprolol Tartrate 25 Mg Tab PO 12.5 mg BID ALISA Administration Morphine Sulfate 2 mg 02/29/20 16:42 04/27/20 09:02 Morphine IV 2 mg Q4H PRN Administration Pain, Moderate (4-6) Nitroglycerin 0.4 mg 04/24/20 02:03 Nitroglycerin 0.4 Mg Tab Subl SL .Q5MIN PRN Chest Pain Pregabalin 150 mg 04/03/20 12:00 04/27/20 09:57 Pregabalin PO 150 mg BID ALISA Administration Scopolamine 1 each 03/03/20 14:00 04/26/20 09:23 Transderm-Scop TD 1 each Q3D ALISA Administration Senna 17.2 mg 04/03/20 22:00 04/26/20 22:34 Senokot PO 17.2 mg QHS ALISA Administration Simple Syrup 15 ml 02/26/20 11:16 Simple Syrup 15 Ml FEEDTUBE PRN PRN Hypoglycemia Simple Syrup 30 ml 02/26/20 11:16 Simple Syrup 15 Ml FEEDTUBE PRN PRN Hypoglycemia Sodium Bicarbonate 325 mg 02/26/20 11:16 Sodium Bicarbonate 325 Mg Tab FEEDTUBE PRN PRN For Clogged Feeding Tube Sodium Hypochlorite 1 applic 03/31/20 13:00 04/27/20 09:02 Dakin's Half Strength TP 1 applicatio BID ALISA Administration Tamsulosin HCl 0.4 mg 03/09/20 18:00 04/27/20 09:03 Tamsulosin 0.4 Mg Cap PO 0.4 mg QDAY ALISA Administration Tramadol HCl 50 mg 04/22/20 11:35 04/27/20 05:57 Tramadol 50 Mg Tab PO 50 mg Q6H PRN Administration Pain, Moderate (4-6) Zolpidem Tartrate 10 mg 03/31/20 20:15 04/26/20 22:35 Ambien PO 10 mg QHS PRN Administration Sleep Nutrition/Malnutrition Assess - Dietary Evaluation Nutrition/Malnutrition Findings: Nutrition Notes Start: 02/26/20 10:40 Freq: Status: Active Protocol: Document 04/25/20 11:14 LM (Rec: 04/25/20 11:20 LM [id number]) Nutrition Notes Initial or Follow up Reassessment Current Diagnosis Decubitus(Pressure Ulcer), Sepsis,Respiratory Failure Other Pertinent Diagnosis COVID-19 (-), ALS, pneumonia, Hip/buttock PU Current Diet Vital AF 1.2 at 75ml/hr (goal rate) Labs/Tests Reviewed Pertinent Medications Reviewed Height 6 ft Weight 67 kg Robinson Body Weight (kg) 80.90 BMI 20.0 Weight change and time frame Wt change noted Weight Status Appropriate Subjective/Other Information Observed TF running at goal rate. Percent of energy/protein needs met: 87%/100% Burn Absent Trauma Absent GI Symptoms None Skin Integrity/Comment Pressure Ulcer Stage 2 Current % PO Negligible Minimum of two criteria Yes Body Fat Depletion Mild depletion (non-severe) Muscle Mass Mild Depletion (non-severe) Reduced [place] Spreader Strength Measurably Reduced (severe) #3 Nutrition Diagnosis Malnutrition Diagnosis Progress(for reassessment Continues documentation) #2 Nutrition Diagnosis Inadequate oral intake Diagnosis Progress(for reassessment Continues documentation) #1 Nutrition Diagnosis Increased nutrient needs ( specify in comment below) Diagnosis Progress(for reassessment Continues documentation) Is patient on ventilator? Yes Is Patient Ambulatory and/or Out of Bed No REE-([place]-confined to bed) 1832.460 Kcal/Kg value to use for calculation 37 Approximate Energy Requirements Using 2479 kcal/Kg Calculation Used for Recommendations Kcal/kg Additional Notes Protein needs: 88-147 g (1.2-2 g/ kg ABW) Fluid: 1ml/kcal Nutrition Intervention Change Diet Order: Continue TF Nutrition Support: Vital AF 1.2 at 75ml/hr. Flush 150ml q4h Kcal 2,160 Protein (gm) 135 Fluid (mL) 1,460 Add Supplement/Snack (indicate name/kcal Will BID /protein ) Provides kCal: 190 Provides Protein (gm) 5 Goal #1 Meet at least 80% of energy and protein needs via TF Goal #2 Wound healing Anticipated Discharge Needs: Unable to determine at this time Follow-Up By: 05/02/20 Additional Comments F/U for TF tolerance
[2020-04-27] MEDS: ACETAMINOPHEN 325 MG TAB PO PRN ×2 (14:28→22:35)
--- NOTE | 2020-04-27 16:07 | Progress Note ---
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 Respiratory Failure Severe Sepsis with Shock Bilateral Pneumonia (Possible aspiration) History of ALS on Trilogy Oropharyngeal Dysphagia PUI-COVID Acute toxic metabolic encephalopathy Elevated D-dimer Elevated troponin possibly type 2 ischemia - no new issues, discharge planning still ongoing for home ventilator - remains ventilator dependent; continue care as below: - continue home meds re: chronic pain (Baclofen, Lyrica) - continue daily SBT's as tolerated; t-piece trial attempts as tolerated (PSV if fails) - repeat CXR prn +/- bronchoscopy for mucus plugging / large volume atelectasis - continue psychoactive meds for anxiolysis - continue Robinul & scopolamine for secretion control - prn electrolytes and optimize K+ & Mg 2+ for best respiratory muscle function - wound care per RN/WCN - wean supplemental oxygen for target O2 sat's > 90% acutely - bronchodilators with pulmonary hygiene per RT - VAP bundle addressed - continue lung protective strategies - continue bronchodilators with pulmonary hygiene per RT - wean per pulmonary driven protocols otherwise - sedation prn for target RASS 0 to -1 - s/p empiric antiinfectives per ID rec's (Rocephin and Zithromax) - s/p COVID-19 isolation (Airborne & Contact) - s/p Dexamethasone - enteral nutrition at goal rate as tolerated - accuchecks with glycemic control per SSI (While critically ill target blood glucose of 140-180 mg/dL; avoid hypoglycemia) - avoid nephrotoxins, renally dose all medications - avoid benzodiazepine's, reduce the possibility of delirium - prn analgesia per CPOT score - Maintenance of sleep-wake cycle, avoid delirium - aspiration precautions - G.I. & VTE prophylaxis - PT/OT/ROM exercises - mobility protocols for pressure ulcer prophylaxis - Monitor hemodynamics closely - continue other care per attending / other consultants - discharge planning ongoing concurrently .... Re-evaluate in am & prn CONDITION: CRITICAL PROGNOSIS: GUARDED CODE STATUS: FULL CODE The high probability of a clinically significant, sudden or life-threatening deterioration of the [respiratory, cardiovascular & neurologic] system(s) required my full and direct attention, intervention and personal management. The aggregate critical care time was [35] minutes without overlap. Time includes spent on; [x] Data Review and interpretation [x] Patient assessment and monitoring of vital signs [x] Documentation [x] Medication orders and management Subjective Date of service: 04/27/20 Principal diagnosis: Ac on Ch Hypercapnic & hypoxemic Resp Failure; Severe Sepsis; Jamar PNA; ALS Interval history: Patient is seen today for: Acute on Chronic Hypercapnic & hypoxemic Respiratory Failure; Severe Sepsis with Shock; Bilateral Pneumonia (Possible aspiration); History of ALS on Trilogy; PUI-COVID; Acute toxic metabolic encephalopathy Seen and examined at bedside; 24hour events reviewed; nursing and respiratory care staff consulted; no adverse overnight events reported to me; resting in bed; remains on MVS; no N/V/F/C; afebrile Objective Vital Signs - 12hr 04/27/20 04/27/20 04/27/20 04:47 04:49 05:00 Temperature Pulse Rate 105 H 107 H Respiratory 13 Rate Blood Pressure 107/73 112/78 O2 Sat by Pulse 99 90 Oximetry O2 Sat by Pulse 99 Oximetry [ Assessment] 04/27/20 04/27/20 04/27/20 05:57 06:00 07:00 Temperature Pulse Rate 104 H 101 H Respiratory 15 16 12 Rate Blood Pressure 112/78 106/69 O2 Sat by Pulse 98 99 Oximetry O2 Sat by Pulse Oximetry [ Assessment] 04/27/20 04/27/20 04/27/20 08:00 08:06 08:07 Temperature 98.3 F Pulse Rate 104 H 108 H 111 H Respiratory 19 23 Rate Blood Pressure 106/70 106/70 106/70 O2 Sat by Pulse 100 99 99 Oximetry O2 Sat by Pulse Oximetry [ Assessment] 04/27/20 04/27/20 04/27/20 09:00 09:01 10:00 Temperature Pulse Rate 111 H 111 H 99 H Respiratory 22 14 Rate Blood Pressure 107/70 107/70 111/72 O2 Sat by Pulse 97 99 Oximetry O2 Sat by Pulse Oximetry [ Assessment] 04/27/20 04/27/20 04/27/20 11:00 12:00 13:00 Temperature 99.0 F Pulse Rate 98 H 101 H 101 H Respiratory 13 18 21 Rate Blood Pressure 104/66 101/68 107/66 O2 Sat by Pulse 99 97 100 Oximetry O2 Sat by Pulse Oximetry [ Assessment] 04/27/20 13:15 Temperature Pulse Rate 108 H Respiratory 22 Rate Blood Pressure 107/66 O2 Sat by Pulse 98 Oximetry O2 Sat by Pulse Oximetry [ Assessment] Constitutional: no acute distress, other (thin middle aged male with normal respiratory effort at rest on MVS) Eyes: non-icteric ENT: oropharynx moist, other (S/P Tracheostomy) Neck: supple, no lymphadenopathy, no JVD Effort: mildly labored Ascultation: Bilateral: rhonchi Percussion: Bilateral: not dull Cardiovascular: regular rate and rhythm, other (S1,S2, no murmurs) Gastrointestinal: normoactive bowel sounds, soft, non-tender, non-distended, other (+ distended but non tender suprapubis) Integumentary: normal, decubitus ulcer (sacral / gluteal) Extremities: no cyanosis, no edema, pulses normal, other (atrophic looking limbs) Neurologic: pupils equal and round, other (motor strength in extremities 1-2/5, awake, alert, mouths words to make needs known) Psychiatric: mood appropriate, affect normal CBC and BMP: 04/25/20 06:34 04/25/20 06:34 ABG, PT/INR, D-dimer: ABG ABG pH 7.371 (7.320-7.450) 03/08/20 12:34 POC ABG pCO2 63.1 mmHg (32.0-48.0) H 03/08/20 12:34 ABG pCO2 60.1 mm Hg 03/06/20 04:34 POC ABG pO2 90.5 mmHg (83-108) 03/08/20 12:34 ABG pO2 88.6 mm Hg (80.0-90.0) 03/06/20 04:34 POC ABG HCO3 35.7 03/08/20 12:34 ABG O2 Saturation 97.0 % (95.0-99.0) 03/06/20 04:34 PT/INR, D-dimer PT 15.6 Sec. (12.2-14.9) H 02/24/20 09:19 INR 1.21 (0.87-1.13) H 02/24/20 09:19 D-Dimer 1311.96 ng/mlDDU (0-234) H 02/24/20 09:19 Abnormal lab findings: Abnormal Labs 02/24/20 02/24/20 02/24/20 09:19 09:19 09:19 WBC 20.2 H RBC 5.05 H Hgb Hct MCV MCH RDW 15.3 H Plt Count Lymph % (Auto) [place] % (Auto) Lymph # (Auto) [place] # (Auto) Seg Neutrophils % Seg Neuts % (Manual) 86.0 H Lymphocytes % (Manual) 1.0 L Monocytes % (Manual) Basophils % (Manual) Seg Neutrophils # Seg Neutrophils # Man 17.4 H Lymphocytes # (Manual) 0.2 L Monocytes # (Manual) Eosinophils # (Manual) Basophils # (Manual) PT 15.6 H INR 1.21 H D-Dimer 1311.96 H ABG pH POC ABG pCO2 POC ABG pO2 ABG pO2 ABG HCO3 ABG O2 Saturation ABG Base Excess ABG Hemoglobin ABG Oxyhemoglobin ABG Potassium ABG Glucose Oxyhemoglobin Carboxyhemoglobin Sodium 135 L Potassium 3.2 L Chloride 92.2 L Carbon Dioxide BUN 6 L Creatinine < 0.2 L Glucose 124 H POC Glucose Calcium Ferritin Total Bilirubin 2.30 H Alkaline Phosphatase 132 H Lactate Dehydrogenase Total Creatine Kinase CK-MB (CK-2) Rel Index Troponin T 0.080 H C-Reactive Protein Total Protein Albumin 3.6 L Prealbumin LDL Cholesterol Direct 41 L HDL Cholesterol Arterial Blood Glucose Arterial Blood Ionized Calcium Urine WBC (Auto) 02/24/20 02/24/20 02/24/20 09:19 09:58 10:01 WBC RBC Hgb Hct MCV MCH RDW Plt Count Lymph % (Auto) [place] % (Auto) Lymph # (Auto) [place] # (Auto) Seg Neutrophils % Seg Neuts % (Manual) Lymphocytes % (Manual) Monocytes % (Manual) Basophils % (Manual) Seg Neutrophils # Seg Neutrophils # Man Lymphocytes # (Manual) Monocytes # (Manual) Eosinophils # (Manual) Basophils # (Manual) PT INR D-Dimer ABG pH 7.176 L* POC ABG pCO2 POC ABG pO2 ABG pO2 91.2 H ABG HCO3 ABG O2 Saturation ABG Base Excess -4.6 L ABG Hemoglobin ABG Oxyhemoglobin ABG Potassium ABG Glucose Oxyhemoglobin 92.6 L Carboxyhemoglobin Sodium Potassium Chloride Carbon Dioxide BUN Creatinine Glucose POC Glucose Calcium Ferritin 1715.0 H Total Bilirubin Alkaline Phosphatase Lactate Dehydrogenase 303 H Total Creatine Kinase CK-MB (CK-2) Rel Index Troponin T C-Reactive Protein 26.10 H Total Protein Albumin Prealbumin LDL Cholesterol Direct HDL Cholesterol Arterial Blood Glucose Arterial Blood Ionized Calcium Urine WBC (Auto) 02/24/20 02/24/20 02/24/20 11:52 13:45 19:35 WBC RBC Hgb Hct MCV MCH RDW Plt Count Lymph % (Auto) [place] % (Auto) Lymph # (Auto) [place] # (Auto) Seg Neutrophils % Seg Neuts % (Manual) Lymphocytes % (Manual) Monocytes % (Manual) Basophils % (Manual) Seg Neutrophils # Seg Neutrophils # Man Lymphocytes # (Manual) Monocytes # (Manual) Eosinophils # (Manual) Basophils # (Manual) PT INR D-Dimer ABG pH 7.051 L* 7.300 L POC ABG pCO2 POC ABG pO2 ABG pO2 94.7 H 75.1 L ABG HCO3 18.0 L ABG O2 Saturation 93.5 L ABG Base Excess -6.8 L -7.8 L ABG Hemoglobin 13.2 L 11.9 L ABG Oxyhemoglobin ABG Potassium ABG Glucose Oxyhemoglobin 91.0 L 92.7 L Carboxyhemoglobin Sodium Potassium Chloride Carbon Dioxide BUN Creatinine Glucose POC Glucose Calcium Ferritin Total Bilirubin Alkaline Phosphatase Lactate Dehydrogenase Total Creatine Kinase CK-MB (CK-2) Rel Index Troponin T 0.034 H D C-Reactive Protein Total Protein Albumin Prealbumin LDL Cholesterol Direct HDL Cholesterol Arterial Blood Glucose Arterial Blood Ionized Calcium Urine WBC (Auto) 02/25/20 02/25/20 02/25/20 04:00 04:00 12:26 WBC 22.9 H RBC Hgb Hct MCV 83 L MCH 27 L RDW Plt Count 468 H Lymph % (Auto) [place] % (Auto) Lymph # (Auto) [place] # (Auto) Seg Neutrophils % Seg Neuts % (Manual) 89.0 H Lymphocytes % (Manual) 7.0 L Monocytes % (Manual) Basophils % (Manual) Seg Neutrophils # Seg Neutrophils # Man 20.4 H Lymphocytes # (Manual) Monocytes # (Manual) Eosinophils # (Manual) Basophils # (Manual) PT INR D-Dimer ABG pH POC ABG pCO2 POC ABG pO2 ABG pO2 ABG HCO3 ABG O2 Saturation ABG Base Excess ABG Hemoglobin ABG Oxyhemoglobin ABG Potassium 2.6 L ABG Glucose 142 H Oxyhemoglobin Carboxyhemoglobin Sodium Potassium 3.2 L Chloride Carbon Dioxide 18 L BUN Creatinine 0.2 L Glucose 114 H POC Glucose Calcium Ferritin Total Bilirubin Alkaline Phosphatase Lactate Dehydrogenase Total Creatine Kinase CK-MB (CK-2) Rel Index Troponin T C-Reactive Protein Total Protein Albumin 3.5 L Prealbumin LDL Cholesterol Direct HDL Cholesterol Arterial Blood Glucose 142 H Arterial Blood Ionized Calcium Urine WBC (Auto) 02/26/20 02/26/20 02/26/20 15:58 17:00 23:43 WBC RBC Hgb Hct MCV MCH RDW Plt Count Lymph % (Auto) [place] % (Auto) Lymph # (Auto) [place] # (Auto) Seg Neutrophils % Seg Neuts % (Manual) Lymphocytes % (Manual) Monocytes % (Manual) Basophils % (Manual) Seg Neutrophils # Seg Neutrophils # Man Lymphocytes # (Manual) Monocytes # (Manual) Eosinophils # (Manual) Basophils # (Manual) PT INR D-Dimer ABG pH 7.502 H POC ABG pCO2 POC ABG pO2 213.6 H ABG pO2 ABG HCO3 ABG O2 Saturation ABG Base Excess ABG Hemoglobin ABG Oxyhemoglobin 99.2 H ABG Potassium 2.9 L ABG Glucose 160 H Oxyhemoglobin Carboxyhemoglobin 0.4 L Sodium Potassium Chloride Carbon Dioxide BUN Creatinine Glucose POC Glucose 189 H 120 H Calcium Ferritin Total Bilirubin Alkaline Phosphatase Lactate Dehydrogenase Total Creatine Kinase CK-MB (CK-2) Rel Index Troponin T C-Reactive Protein Total Protein Albumin Prealbumin LDL Cholesterol Direct HDL Cholesterol Arterial Blood Glucose 160 H Arterial Blood Ionized Calcium 4.5 L Urine WBC (Auto) 02/27/20 02/27/20 02/27/20 05:00 07:04 17:45 WBC RBC Hgb Hct MCV MCH RDW Plt Count Lymph % (Auto) [place] % (Auto) Lymph # (Auto) [place] # (Auto) Seg Neutrophils % Seg Neuts % (Manual) Lymphocytes % (Manual) Monocytes % (Manual) Basophils % (Manual) Seg Neutrophils # Seg Neutrophils # Man Lymphocytes # (Manual) Monocytes # (Manual) Eosinophils # (Manual) Basophils # (Manual) PT INR D-Dimer ABG pH 7.524 H POC ABG pCO2 POC ABG pO2 ABG pO2 ABG HCO3 ABG O2 Saturation ABG Base Excess ABG Hemoglobin ABG Oxyhemoglobin ABG Potassium 3.0 L ABG Glucose 143 H Oxyhemoglobin Carboxyhemoglobin Sodium Potassium Chloride Carbon Dioxide BUN Creatinine Glucose POC Glucose 154 H 175 H Calcium Ferritin Total Bilirubin Alkaline Phosphatase Lactate Dehydrogenase Total Creatine Kinase CK-MB (CK-2) Rel Index Troponin T C-Reactive Protein Total Protein Albumin Prealbumin LDL Cholesterol Direct HDL Cholesterol Arterial Blood Glucose 143 H Arterial Blood Ionized Calcium Urine WBC (Auto) 02/27/20 02/28/20 02/28/20 Unknown 00:21 04:15 WBC 18.7 H RBC Hgb Hct MCV MCH RDW Plt Count Lymph % (Auto) 8.7 L [place] % (Auto) Lymph # (Auto) [place] # (Auto) 1.2 H Seg Neutrophils % 84.6 H Seg Neuts % (Manual) Lymphocytes % (Manual) Monocytes % (Manual) Basophils % (Manual) Seg Neutrophils # 15.9 H Seg Neutrophils # Man Lymphocytes # (Manual) Monocytes # (Manual) Eosinophils # (Manual) Basophils # (Manual) PT INR D-Dimer ABG pH POC ABG pCO2 POC ABG pO2 ABG pO2 ABG HCO3 ABG O2 Saturation ABG Base Excess ABG Hemoglobin ABG Oxyhemoglobin ABG Potassium ABG Glucose Oxyhemoglobin Carboxyhemoglobin Sodium Potassium 2.9 L* Chloride Carbon Dioxide 33 H D BUN Creatinine < 0.2 L Glucose 157 H POC Glucose 134 H Calcium Ferritin Total Bilirubin Alkaline Phosphatase Lactate Dehydrogenase Total Creatine Kinase CK-MB (CK-2) Rel Index Troponin T C-Reactive Protein Total Protein Albumin Prealbumin LDL Cholesterol Direct HDL Cholesterol Arterial Blood Glucose Arterial Blood Ionized Calcium Urine WBC (Auto) 02/28/20 02/28/20 02/28/20 04:15 05:16 05:39 WBC RBC Hgb Hct MCV MCH RDW Plt Count Lymph % (Auto) [place] % (Auto) Lymph # (Auto) [place] # (Auto) Seg Neutrophils % Seg Neuts % (Manual) Lymphocytes % (Manual) Monocytes % (Manual) Basophils % (Manual) Seg Neutrophils # Seg Neutrophils # Man Lymphocytes # (Manual) Monocytes # (Manual) Eosinophils # (Manual) Basophils # (Manual) PT INR D-Dimer ABG pH POC ABG pCO2 POC ABG pO2 ABG pO2 142.9 H ABG HCO3 34.1 H ABG O2 Saturation ABG Base Excess 8.3 H ABG Hemoglobin ABG Oxyhemoglobin ABG Potassium ABG Glucose Oxyhemoglobin Carboxyhemoglobin Sodium 151 H Potassium Chloride Carbon Dioxide 32 H BUN Creatinine 0.2 L Glucose 167 H POC Glucose 138 H Calcium Ferritin Total Bilirubin Alkaline Phosphatase Lactate Dehydrogenase Total Creatine Kinase CK-MB (CK-2) Rel Index Troponin T C-Reactive Protein Total Protein Albumin Prealbumin LDL Cholesterol Direct HDL Cholesterol Arterial Blood Glucose Arterial Blood Ionized Calcium Urine WBC (Auto) 02/28/20 02/28/20 02/28/20 11:05 11:33 12:54 WBC RBC Hgb Hct MCV MCH RDW Plt Count Lymph % (Auto) [place] % (Auto) Lymph # (Auto) [place] # (Auto) Seg Neutrophils % Seg Neuts % (Manual) Lymphocytes % (Manual) Monocytes % (Manual) Basophils % (Manual) Seg Neutrophils # Seg Neutrophils # Man Lymphocytes # (Manual) Monocytes # (Manual) Eosinophils # (Manual) Basophils # (Manual) PT INR D-Dimer ABG pH POC ABG pCO2 POC ABG pO2 ABG pO2 ABG HCO3 ABG O2 Saturation ABG Base Excess ABG Hemoglobin ABG Oxyhemoglobin ABG Potassium ABG Glucose Oxyhemoglobin Carboxyhemoglobin Sodium Potassium Chloride Carbon Dioxide BUN Creatinine Glucose POC Glucose 160 H Calcium Ferritin Total Bilirubin Alkaline Phosphatase Lactate Dehydrogenase Total Creatine Kinase CK-MB (CK-2) Rel Index Troponin T C-Reactive Protein 4.70 H Total Protein Albumin Prealbumin 0.090 L LDL Cholesterol Direct HDL Cholesterol Arterial Blood Glucose Arterial Blood Ionized Calcium Urine WBC (Auto) 02/28/20 02/29/20 02/29/20 17:34 00:44 04:05 WBC 19.6 H RBC Hgb Hct MCV MCH 27 L RDW 15.4 H Plt Count Lymph % (Auto) [place] % (Auto) Lymph # (Auto) [place] # (Auto) Seg Neutrophils % Seg Neuts % (Manual) 86.0 H Lymphocytes % (Manual) 7.0 L Monocytes % (Manual) Basophils % (Manual) Seg Neutrophils # Seg Neutrophils # Man 16.9 H Lymphocytes # (Manual) Monocytes # (Manual) 1.2 H Eosinophils # (Manual) Basophils # (Manual) PT INR D-Dimer ABG pH POC ABG pCO2 POC ABG pO2 ABG pO2 ABG HCO3 ABG O2 Saturation ABG Base Excess ABG Hemoglobin ABG Oxyhemoglobin ABG Potassium ABG Glucose Oxyhemoglobin Carboxyhemoglobin Sodium Potassium Chloride Carbon Dioxide BUN Creatinine Glucose POC Glucose 136 H 156 H Calcium Ferritin Total Bilirubin Alkaline Phosphatase Lactate Dehydrogenase Total Creatine Kinase CK-MB (CK-2) Rel Index Troponin T C-Reactive Protein Total Protein Albumin Prealbumin LDL Cholesterol Direct HDL Cholesterol Arterial Blood Glucose Arterial Blood Ionized Calcium Urine WBC (Auto) 02/29/20 02/29/20 02/29/20 04:05 05:14 05:33 WBC RBC Hgb Hct MCV MCH RDW Plt Count Lymph % (Auto) [place] % (Auto) Lymph # (Auto) [place] # (Auto) Seg Neutrophils % Seg Neuts % (Manual) Lymphocytes % (Manual) Monocytes % (Manual) Basophils % (Manual) Seg Neutrophils # Seg Neutrophils # Man Lymphocytes # (Manual) Monocytes # (Manual) Eosinophils # (Manual) Basophils # (Manual) PT INR D-Dimer ABG pH POC ABG pCO2 54.3 H POC ABG pO2 124.8 H ABG pO2 ABG HCO3 ABG O2 Saturation ABG Base Excess ABG Hemoglobin ABG Oxyhemoglobin ABG Potassium ABG Glucose 185 H Oxyhemoglobin Carboxyhemoglobin Sodium 148 H Potassium Chloride Carbon Dioxide 33 H BUN Creatinine < 0.2 L Glucose 173 H POC Glucose 152 H Calcium Ferritin Total Bilirubin Alkaline Phosphatase Lactate Dehydrogenase Total Creatine Kinase CK-MB (CK-2) Rel Index Troponin T C-Reactive Protein Total Protein Albumin Prealbumin LDL Cholesterol Direct HDL Cholesterol Arterial Blood Glucose 185 H Arterial Blood Ionized Calcium Urine WBC (Auto) 03/01/20 03/01/20 03/01/20 00:00 03:45 04:33 WBC 23.1 H RBC Hgb Hct MCV MCH 27 L RDW 15.3 H Plt Count Lymph % (Auto) [place] % (Auto) Lymph # (Auto) [place] # (Auto) Seg Neutrophils % Seg Neuts % (Manual) 92.0 H Lymphocytes % (Manual) 6.0 L Monocytes % (Manual) Basophils % (Manual) Seg Neutrophils # Seg Neutrophils # Man 21.3 H Lymphocytes # (Manual) Monocytes # (Manual) Eosinophils # (Manual) 0.5 H Basophils # (Manual) PT INR D-Dimer ABG pH 7.492 H POC ABG pCO2 POC ABG pO2 ABG pO2 157.1 H ABG HCO3 32.3 H ABG O2 Saturation ABG Base Excess 8.1 H ABG Hemoglobin 13.2 L ABG Oxyhemoglobin ABG Potassium ABG Glucose Oxyhemoglobin Carboxyhemoglobin Sodium Potassium Chloride Carbon Dioxide BUN Creatinine Glucose POC Glucose 109 H Calcium Ferritin Total Bilirubin Alkaline Phosphatase Lactate Dehydrogenase Total Creatine Kinase CK-MB (CK-2) Rel Index Troponin T C-Reactive Protein Total Protein Albumin Prealbumin LDL Cholesterol Direct HDL Cholesterol Arterial Blood Glucose Arterial Blood Ionized Calcium Urine WBC (Auto) 11/08/1503/01/20 03/01/20 04:33 05:29 12:32 WBC RBC Hgb Hct MCV MCH RDW Plt Count Lymph % (Auto) [place] % (Auto) Lymph # (Auto) [place] # (Auto) Seg Neutrophils % Seg Neuts % (Manual) Lymphocytes % (Manual) Monocytes % (Manual) Basophils % (Manual) Seg Neutrophils # Seg Neutrophils # Man Lymphocytes # (Manual) Monocytes # (Manual) Eosinophils # (Manual) Basophils # (Manual) PT INR D-Dimer ABG pH POC ABG pCO2 POC ABG pO2 ABG pO2 ABG HCO3 ABG O2 Saturation ABG Base Excess ABG Hemoglobin ABG Oxyhemoglobin ABG Potassium ABG Glucose Oxyhemoglobin Carboxyhemoglobin Sodium 146 H Potassium Chloride Carbon Dioxide 32 H BUN Creatinine < 0.2 L Glucose 120 H POC Glucose 120 H 128 H Calcium Ferritin Total Bilirubin Alkaline Phosphatase Lactate Dehydrogenase Total Creatine Kinase CK-MB (CK-2) Rel Index Troponin T C-Reactive Protein Total Protein Albumin Prealbumin LDL Cholesterol Direct HDL Cholesterol Arterial Blood Glucose Arterial Blood Ionized Calcium Urine WBC (Auto) 03/01/20 03/01/20 03/02/20 17:38 23:46 06:13 WBC RBC Hgb Hct MCV MCH RDW Plt Count Lymph % (Auto) [place] % (Auto) Lymph # (Auto) [place] # (Auto) Seg Neutrophils % Seg Neuts % (Manual) Lymphocytes % (Manual) Monocytes % (Manual) Basophils % (Manual) Seg Neutrophils # Seg Neutrophils # Man Lymphocytes # (Manual) Monocytes # (Manual) Eosinophils # (Manual) Basophils # (Manual) PT INR D-Dimer ABG pH POC ABG pCO2 POC ABG pO2 ABG pO2 ABG HCO3 ABG O2 Saturation ABG Base Excess ABG Hemoglobin ABG Oxyhemoglobin ABG Potassium ABG Glucose Oxyhemoglobin Carboxyhemoglobin Sodium Potassium Chloride Carbon Dioxide BUN Creatinine Glucose POC Glucose 114 H 121 H 120 H Calcium Ferritin Total Bilirubin Alkaline Phosphatase Lactate Dehydrogenase Total Creatine Kinase CK-MB (CK-2) Rel Index Troponin T C-Reactive Protein Total Protein Albumin Prealbumin LDL Cholesterol Direct HDL Cholesterol Arterial Blood Glucose Arterial Blood Ionized Calcium Urine WBC (Auto) 03/02/20 03/02/20 03/03/20 09:47 09:47 10:21 WBC 23.6 H RBC Hgb Hct MCV MCH RDW 15.3 H Plt Count 494 H Lymph % (Auto) [place] % (Auto) Lymph # (Auto) [place] # (Auto) Seg Neutrophils % Seg Neuts % (Manual) 85.0 H Lymphocytes % (Manual) 6.0 L Monocytes % (Manual) Basophils % (Manual) Seg Neutrophils # Seg Neutrophils # Man 20.1 H Lymphocytes # (Manual) Monocytes # (Manual) 1.7 H Eosinophils # (Manual) Basophils # (Manual) PT INR D-Dimer ABG pH POC ABG pCO2 POC ABG pO2 ABG pO2 ABG HCO3 ABG O2 Saturation ABG Base Excess ABG Hemoglobin ABG Oxyhemoglobin ABG Potassium 3.3 L ABG Glucose 158 H Oxyhemoglobin Carboxyhemoglobin Sodium Potassium Chloride Carbon Dioxide BUN Creatinine < 0.2 L Glucose 177 H POC Glucose Calcium Ferritin Total Bilirubin Alkaline Phosphatase Lactate Dehydrogenase Total Creatine Kinase CK-MB (CK-2) Rel Index Troponin T C-Reactive Protein Total Protein Albumin Prealbumin LDL Cholesterol Direct HDL Cholesterol Arterial Blood Glucose 158 H Arterial Blood Ionized Calcium Urine WBC (Auto) 03/03/20 03/04/20 03/04/20 21:30 00:00 12:23 WBC RBC Hgb Hct MCV MCH RDW Plt Count Lymph % (Auto) [place] % (Auto) Lymph # (Auto) [place] # (Auto) Seg Neutrophils % Seg Neuts % (Manual) Lymphocytes % (Manual) Monocytes % (Manual) Basophils % (Manual) Seg Neutrophils # Seg Neutrophils # Man Lymphocytes # (Manual) Monocytes # (Manual) Eosinophils # (Manual) Basophils # (Manual) PT INR D-Dimer ABG pH 7.328 L POC ABG pCO2 POC ABG pO2 ABG pO2 68.4 L ABG HCO3 35.0 H ABG O2 Saturation 93.9 L ABG Base Excess 6.8 H ABG Hemoglobin 12.7 L ABG Oxyhemoglobin ABG Potassium ABG Glucose Oxyhemoglobin 91.9 L Carboxyhemoglobin Sodium Potassium Chloride Carbon Dioxide BUN Creatinine Glucose POC Glucose 187 H 163 H Calcium Ferritin Total Bilirubin Alkaline Phosphatase Lactate Dehydrogenase Total Creatine Kinase CK-MB (CK-2) Rel Index Troponin T C-Reactive Protein Total Protein Albumin Prealbumin LDL Cholesterol Direct HDL Cholesterol Arterial Blood Glucose Arterial Blood Ionized Calcium Urine WBC (Auto) 03/04/20 03/04/20 03/05/20 18:15 21:30 06:02 WBC RBC Hgb Hct MCV MCH RDW Plt Count Lymph % (Auto) [place] % (Auto) Lymph # (Auto) [place] # (Auto) Seg Neutrophils % Seg Neuts % (Manual) Lymphocytes % (Manual) Monocytes % (Manual) Basophils % (Manual) Seg Neutrophils # Seg Neutrophils # Man Lymphocytes # (Manual) Monocytes # (Manual) Eosinophils # (Manual) Basophils # (Manual) PT INR D-Dimer ABG pH 7.297 L POC ABG pCO2 POC ABG pO2 ABG pO2 ABG HCO3 41.0 H ABG O2 Saturation ABG Base Excess 11.0 H ABG Hemoglobin 13.1 L ABG Oxyhemoglobin ABG Potassium ABG Glucose Oxyhemoglobin 94.5 L Carboxyhemoglobin Sodium Potassium Chloride Carbon Dioxide BUN Creatinine Glucose POC Glucose 192 H 127 H Calcium Ferritin Total Bilirubin Alkaline Phosphatase Lactate Dehydrogenase Total Creatine Kinase CK-MB (CK-2) Rel Index Troponin T C-Reactive Protein Total Protein Albumin Prealbumin LDL Cholesterol Direct HDL Cholesterol Arterial Blood Glucose Arterial Blood Ionized Calcium Urine WBC (Auto) 03/05/20 03/05/20 03/06/20 12:09 16:42 00:24 WBC RBC Hgb Hct MCV MCH RDW Plt Count Lymph % (Auto) [place] % (Auto) Lymph # (Auto) [place] # (Auto) Seg Neutrophils % Seg Neuts % (Manual) Lymphocytes % (Manual) Monocytes % (Manual) Basophils % (Manual) Seg Neutrophils # Seg Neutrophils # Man Lymphocytes # (Manual) Monocytes # (Manual) Eosinophils # (Manual) Basophils # (Manual) PT INR D-Dimer ABG pH POC ABG pCO2 POC ABG pO2 ABG pO2 ABG HCO3 ABG O2 Saturation ABG Base Excess ABG Hemoglobin ABG Oxyhemoglobin ABG Potassium ABG Glucose Oxyhemoglobin Carboxyhemoglobin Sodium Potassium Chloride Carbon Dioxide BUN Creatinine Glucose POC Glucose 147 H 114 H 134 H Calcium Ferritin Total Bilirubin Alkaline Phosphatase Lactate Dehydrogenase Total Creatine Kinase CK-MB (CK-2) Rel Index Troponin T C-Reactive Protein Total Protein Albumin Prealbumin LDL Cholesterol Direct HDL Cholesterol Arterial Blood Glucose Arterial Blood Ionized Calcium Urine WBC (Auto) 03/06/20 03/06/20 03/06/20 04:34 05:53 06:08 WBC 25.4 H RBC Hgb 10.5 L Hct 32.7 L MCV MCH 27 L RDW 15.3 H Plt Count 634 H Lymph % (Auto) [place] % (Auto) Lymph # (Auto) [place] # (Auto) Seg Neutrophils % Seg Neuts % (Manual) 88.0 H Lymphocytes % (Manual) 2.0 L Monocytes % (Manual) 8.0 H Basophils % (Manual) Seg Neutrophils # Seg Neutrophils # Man 22.4 H Lymphocytes # (Manual) 0.5 L Monocytes # (Manual) 2.0 H Eosinophils # (Manual) Basophils # (Manual) PT INR D-Dimer ABG pH POC ABG pCO2 POC ABG pO2 ABG pO2 ABG HCO3 37.9 H ABG O2 Saturation ABG Base Excess 11.4 H ABG Hemoglobin 10.6 L ABG Oxyhemoglobin ABG Potassium ABG Glucose Oxyhemoglobin 94.7 L Carboxyhemoglobin Sodium Potassium Chloride Carbon Dioxide BUN Creatinine Glucose POC Glucose 135 H Calcium Ferritin Total Bilirubin Alkaline Phosphatase Lactate Dehydrogenase Total Creatine Kinase CK-MB (CK-2) Rel Index Troponin T C-Reactive Protein Total Protein Albumin Prealbumin LDL Cholesterol Direct HDL Cholesterol Arterial Blood Glucose Arterial Blood Ionized Calcium Urine WBC (Auto) 03/06/20 03/06/20 03/06/20 06:08 12:19 19:10 WBC RBC Hgb Hct MCV MCH RDW Plt Count Lymph % (Auto) [place] % (Auto) Lymph # (Auto) [place] # (Auto) Seg Neutrophils % Seg Neuts % (Manual) Lymphocytes % (Manual) Monocytes % (Manual) Basophils % (Manual) Seg Neutrophils # Seg Neutrophils # Man Lymphocytes # (Manual) Monocytes # (Manual) Eosinophils # (Manual) Basophils # (Manual) PT INR D-Dimer ABG pH POC ABG pCO2 POC ABG pO2 ABG pO2 ABG HCO3 ABG O2 Saturation ABG Base Excess ABG Hemoglobin ABG Oxyhemoglobin ABG Potassium ABG Glucose Oxyhemoglobin Carboxyhemoglobin Sodium 150 H D Potassium Chloride Carbon Dioxide 39 H D BUN 23 H Creatinine < 0.2 L Glucose 144 H POC Glucose 169 H 152 H Calcium Ferritin Total Bilirubin Alkaline Phosphatase Lactate Dehydrogenase Total Creatine Kinase CK-MB (CK-2) Rel Index Troponin T C-Reactive Protein Total Protein Albumin 3.3 L Prealbumin LDL Cholesterol Direct HDL Cholesterol Arterial Blood Glucose Arterial Blood Ionized Calcium Urine WBC (Auto) 03/06/20 03/07/20 03/07/20 23:58 04:25 04:25 WBC 22.1 H RBC Hgb 10.9 L Hct 32.9 L MCV MCH RDW 15.5 H Plt Count 739 H Lymph % (Auto) 7.8 L [place] % (Auto) Lymph # (Auto) [place] # (Auto) 1.3 H Seg Neutrophils % 85.5 H Seg Neuts % (Manual) Lymphocytes % (Manual) Monocytes % (Manual) Basophils % (Manual) Seg Neutrophils # 18.9 H Seg Neutrophils # Man Lymphocytes # (Manual) Monocytes # (Manual) Eosinophils # (Manual) Basophils # (Manual) PT INR D-Dimer ABG pH POC ABG pCO2 POC ABG pO2 ABG pO2 ABG HCO3 ABG O2 Saturation ABG Base Excess ABG Hemoglobin ABG Oxyhemoglobin ABG Potassium ABG Glucose Oxyhemoglobin Carboxyhemoglobin Sodium 146 H Potassium Chloride Carbon Dioxide 37 H BUN Creatinine < 0.2 L Glucose 118 H POC Glucose 111 H Calcium Ferritin Total Bilirubin Alkaline Phosphatase Lactate Dehydrogenase Total Creatine Kinase CK-MB (CK-2) Rel Index Troponin T C-Reactive Protein Total Protein Albumin 3.7 L Prealbumin LDL Cholesterol Direct HDL Cholesterol Arterial Blood Glucose Arterial Blood Ionized Calcium Urine WBC (Auto) 03/07/20 03/07/20 03/07/20 05:20 17:45 23:32 WBC RBC Hgb Hct MCV MCH RDW Plt Count Lymph % (Auto) [place] % (Auto) Lymph # (Auto) [place] # (Auto) Seg Neutrophils % Seg Neuts % (Manual) Lymphocytes % (Manual) Monocytes % (Manual) Basophils % (Manual) Seg Neutrophils # Seg Neutrophils # Man Lymphocytes # (Manual) Monocytes # (Manual) Eosinophils # (Manual) Basophils # (Manual) PT INR D-Dimer ABG pH POC ABG pCO2 POC ABG pO2 ABG pO2 ABG HCO3 ABG O2 Saturation ABG Base Excess ABG Hemoglobin ABG Oxyhemoglobin ABG Potassium ABG Glucose Oxyhemoglobin Carboxyhemoglobin Sodium Potassium Chloride Carbon Dioxide BUN Creatinine Glucose POC Glucose 113 H 124 H 210 H Calcium Ferritin Total Bilirubin Alkaline Phosphatase Lactate Dehydrogenase Total Creatine Kinase CK-MB (CK-2) Rel Index Troponin T C-Reactive Protein Total Protein Albumin Prealbumin LDL Cholesterol Direct HDL Cholesterol Arterial Blood Glucose Arterial Blood Ionized Calcium Urine WBC (Auto) 03/08/20 03/08/20 03/08/20 05:35 06:43 06:43 WBC 28.9 H RBC 3.53 L Hgb 9.7 L Hct 30.3 L MCV MCH RDW 15.6 H Plt Count 578 H Lymph % (Auto) [place] % (Auto) Lymph # (Auto) [place] # (Auto) Seg Neutrophils % Seg Neuts % (Manual) 93.0 H Lymphocytes % (Manual) 4.0 L Monocytes % (Manual) Basophils % (Manual) Seg Neutrophils # Seg Neutrophils # Man 26.9 H Lymphocytes # (Manual) Monocytes # (Manual) Eosinophils # (Manual) Basophils # (Manual) PT INR D-Dimer ABG pH POC ABG pCO2 POC ABG pO2 ABG pO2 ABG HCO3 ABG O2 Saturation ABG Base Excess ABG Hemoglobin ABG Oxyhemoglobin ABG Potassium ABG Glucose Oxyhemoglobin Carboxyhemoglobin Sodium 146 H Potassium Chloride Carbon Dioxide 35 H BUN 34 H Creatinine 0.3 L D Glucose 125 H POC Glucose 147 H Calcium Ferritin Total Bilirubin Alkaline Phosphatase Lactate Dehydrogenase Total Creatine Kinase CK-MB (CK-2) Rel Index Troponin T C-Reactive Protein Total Protein 5.9 L Albumin 3.2 L Prealbumin LDL Cholesterol Direct HDL Cholesterol Arterial Blood Glucose Arterial Blood Ionized Calcium Urine WBC (Auto) 03/08/20 03/08/20 03/08/20 08:57 11:14 12:34 WBC RBC Hgb Hct MCV MCH RDW Plt Count Lymph % (Auto) [place] % (Auto) Lymph # (Auto) [place] # (Auto) Seg Neutrophils % Seg Neuts % (Manual) Lymphocytes % (Manual) Monocytes % (Manual) Basophils % (Manual) Seg Neutrophils # Seg Neutrophils # Man Lymphocytes # (Manual) Monocytes # (Manual) Eosinophils # (Manual) Basophils # (Manual) PT INR D-Dimer ABG pH POC ABG pCO2 63.1 H POC ABG pO2 ABG pO2 ABG HCO3 ABG O2 Saturation ABG Base Excess ABG Hemoglobin 10.9 L ABG Oxyhemoglobin ABG Potassium ABG Glucose 176 H Oxyhemoglobin Carboxyhemoglobin Sodium Potassium Chloride Carbon Dioxide BUN Creatinine Glucose POC Glucose 171 H Calcium Ferritin Total Bilirubin Alkaline Phosphatase Lactate Dehydrogenase Total Creatine Kinase CK-MB (CK-2) Rel Index Troponin T C-Reactive Protein Total Protein Albumin Prealbumin LDL Cholesterol Direct HDL Cholesterol Arterial Blood Glucose 176 H Arterial Blood Ionized Calcium 4.5 L Urine WBC (Auto) 10.0 H 03/08/20 03/08/20 03/09/20 18:02 23:43 05:49 WBC RBC Hgb Hct MCV MCH RDW Plt Count Lymph % (Auto) [place] % (Auto) Lymph # (Auto) [place] # (Auto) Seg Neutrophils % Seg Neuts % (Manual) Lymphocytes % (Manual) Monocytes % (Manual) Basophils % (Manual) Seg Neutrophils # Seg Neutrophils # Man Lymphocytes # (Manual) Monocytes # (Manual) Eosinophils # (Manual) Basophils # (Manual) PT INR D-Dimer ABG pH POC ABG pCO2 POC ABG pO2 ABG pO2 ABG HCO3 ABG O2 Saturation ABG Base Excess ABG Hemoglobin ABG Oxyhemoglobin ABG Potassium ABG Glucose Oxyhemoglobin Carboxyhemoglobin Sodium Potassium Chloride Carbon Dioxide BUN Creatinine Glucose POC Glucose 157 H 134 H 163 H Calcium Ferritin Total Bilirubin Alkaline Phosphatase Lactate Dehydrogenase Total Creatine Kinase CK-MB (CK-2) Rel Index Troponin T C-Reactive Protein Total Protein Albumin Prealbumin LDL Cholesterol Direct HDL Cholesterol Arterial Blood Glucose Arterial Blood Ionized Calcium Urine WBC (Auto) 03/09/20 03/09/20 03/09/20 08:35 08:35 12:11 WBC 23.4 H RBC 3.36 L Hgb 9.3 L Hct 28.8 L MCV MCH RDW 15.9 H Plt Count 521 H Lymph % (Auto) [place] % (Auto) Lymph # (Auto) [place] # (Auto) Seg Neutrophils % Seg Neuts % (Manual) 87.0 H Lymphocytes % (Manual) 4.0 L Monocytes % (Manual) 9.0 H Basophils % (Manual) Seg Neutrophils # Seg Neutrophils # Man 20.4 H Lymphocytes # (Manual) 0.9 L Monocytes # (Manual) 2.1 H Eosinophils # (Manual) Basophils # (Manual) PT INR D-Dimer ABG pH POC ABG pCO2 POC ABG pO2 ABG pO2 ABG HCO3 ABG O2 Saturation ABG Base Excess ABG Hemoglobin ABG Oxyhemoglobin ABG Potassium ABG Glucose Oxyhemoglobin Carboxyhemoglobin Sodium 147 H Potassium Chloride Carbon Dioxide 37 H BUN 63 H Creatinine Glucose 154 H POC Glucose 128 H Calcium Ferritin Total Bilirubin Alkaline Phosphatase Lactate Dehydrogenase Total Creatine Kinase CK-MB (CK-2) Rel Index Troponin T C-Reactive Protein Total Protein Albumin Prealbumin LDL Cholesterol Direct HDL Cholesterol Arterial Blood Glucose Arterial Blood Ionized Calcium Urine WBC (Auto) 03/09/20 03/10/20 03/10/20 17:51 00:25 05:41 WBC RBC Hgb Hct MCV MCH RDW Plt Count Lymph % (Auto) [place] % (Auto) Lymph # (Auto) [place] # (Auto) Seg Neutrophils % Seg Neuts % (Manual) Lymphocytes % (Manual) Monocytes % (Manual) Basophils % (Manual) Seg Neutrophils # Seg Neutrophils # Man Lymphocytes # (Manual) Monocytes # (Manual) Eosinophils # (Manual) Basophils # (Manual) PT INR D-Dimer ABG pH POC ABG pCO2 POC ABG pO2 ABG pO2 ABG HCO3 ABG O2 Saturation ABG Base Excess ABG Hemoglobin ABG Oxyhemoglobin ABG Potassium ABG Glucose Oxyhemoglobin Carboxyhemoglobin Sodium Potassium Chloride Carbon Dioxide BUN Creatinine Glucose POC Glucose 127 H 128 H 153 H Calcium Ferritin Total Bilirubin Alkaline Phosphatase Lactate Dehydrogenase Total Creatine Kinase CK-MB (CK-2) Rel Index Troponin T C-Reactive Protein Total Protein Albumin Prealbumin LDL Cholesterol Direct HDL Cholesterol Arterial Blood Glucose Arterial Blood Ionized Calcium Urine WBC (Auto) 03/10/20 03/10/20 03/10/20 06:14 06:14 12:02 WBC 18.3 H RBC 3.45 L Hgb 9.5 L Hct 29.5 L MCV MCH RDW 16.1 H Plt Count 494 H Lymph % (Auto) [place] % (Auto) Lymph # (Auto) [place] # (Auto) Seg Neutrophils % Seg Neuts % (Manual) 95.0 H Lymphocytes % (Manual) 1.0 L Monocytes % (Manual) Basophils % (Manual) Seg Neutrophils # Seg Neutrophils # Man 17.4 H Lymphocytes # (Manual) 0.2 L Monocytes # (Manual) Eosinophils # (Manual) Basophils # (Manual) PT INR D-Dimer ABG pH POC ABG pCO2 POC ABG pO2 ABG pO2 ABG HCO3 ABG O2 Saturation ABG Base Excess ABG Hemoglobin ABG Oxyhemoglobin ABG Potassium ABG Glucose Oxyhemoglobin Carboxyhemoglobin Sodium 149 H Potassium Chloride Carbon Dioxide 35 H BUN 34 H Creatinine 0.2 L D Glucose 177 H POC Glucose 151 H Calcium Ferritin Total Bilirubin Alkaline Phosphatase Lactate Dehydrogenase Total Creatine Kinase CK-MB (CK-2) Rel Index Troponin T C-Reactive Protein Total Protein Albumin Prealbumin LDL Cholesterol Direct HDL Cholesterol Arterial Blood Glucose Arterial Blood Ionized Calcium Urine WBC (Auto) 03/10/20 03/10/20 03/11/20 17:41 23:53 05:02 WBC RBC Hgb Hct MCV MCH RDW Plt Count Lymph % (Auto) [place] % (Auto) Lymph # (Auto) [place] # (Auto) Seg Neutrophils % Seg Neuts % (Manual) Lymphocytes % (Manual) Monocytes % (Manual) Basophils % (Manual) Seg Neutrophils # Seg Neutrophils # Man Lymphocytes # (Manual) Monocytes # (Manual) Eosinophils # (Manual) Basophils # (Manual) PT INR D-Dimer ABG pH POC ABG pCO2 POC ABG pO2 ABG pO2 ABG HCO3 ABG O2 Saturation ABG Base Excess ABG Hemoglobin ABG Oxyhemoglobin ABG Potassium ABG Glucose Oxyhemoglobin Carboxyhemoglobin Sodium Potassium Chloride Carbon Dioxide BUN Creatinine Glucose POC Glucose 168 H 142 H 146 H Calcium Ferritin Total Bilirubin Alkaline Phosphatase Lactate Dehydrogenase Total Creatine Kinase CK-MB (CK-2) Rel Index Troponin T C-Reactive Protein Total Protein Albumin Prealbumin LDL Cholesterol Direct HDL Cholesterol Arterial Blood Glucose Arterial Blood Ionized Calcium Urine WBC (Auto) 03/11/20 03/11/20 03/11/20 11:30 14:01 14:01 WBC 19.7 H RBC 3.04 L Hgb 8.7 L Hct 25.8 L MCV MCH RDW 15.6 H Plt Count Lymph % (Auto) [place] % (Auto) Lymph # (Auto) [place] # (Auto) Seg Neutrophils % Seg Neuts % (Manual) Lymphocytes % (Manual) Monocytes % (Manual) Basophils % (Manual) Seg Neutrophils # Seg Neutrophils # Man Lymphocytes # (Manual) Monocytes # (Manual) Eosinophils # (Manual) Basophils # (Manual) PT INR D-Dimer ABG pH POC ABG pCO2 POC ABG pO2 ABG pO2 ABG HCO3 ABG O2 Saturation ABG Base Excess ABG Hemoglobin ABG Oxyhemoglobin ABG Potassium ABG Glucose Oxyhemoglobin Carboxyhemoglobin Sodium 151 H Potassium Chloride Carbon Dioxide 37 H BUN Creatinine < 0.2 L Glucose 171 H POC Glucose 248 H Calcium Ferritin Total Bilirubin Alkaline Phosphatase Lactate Dehydrogenase Total Creatine Kinase CK-MB (CK-2) Rel Index Troponin T C-Reactive Protein Total Protein Albumin Prealbumin LDL Cholesterol Direct HDL Cholesterol Arterial Blood Glucose Arterial Blood Ionized Calcium Urine WBC (Auto) 03/11/20 03/11/20 03/12/20 17:09 23:52 04:39 WBC 19.9 H RBC 3.16 L Hgb 8.9 L Hct 27.5 L MCV MCH RDW 15.7 H Plt Count Lymph % (Auto) 6.8 L [place] % (Auto) Lymph # (Auto) [place] # (Auto) 1.2 H Seg Neutrophils % 86.0 H Seg Neuts % (Manual) Lymphocytes % (Manual) Monocytes % (Manual) Basophils % (Manual) Seg Neutrophils # 17.1 H Seg Neutrophils # Man Lymphocytes # (Manual) Monocytes # (Manual) Eosinophils # (Manual) Basophils # (Manual) PT INR D-Dimer ABG pH POC ABG pCO2 POC ABG pO2 ABG pO2 ABG HCO3 ABG O2 Saturation ABG Base Excess ABG Hemoglobin ABG Oxyhemoglobin ABG Potassium ABG Glucose Oxyhemoglobin Carboxyhemoglobin Sodium Potassium Chloride Carbon Dioxide BUN Creatinine Glucose POC Glucose 124 H 131 H Calcium Ferritin Total Bilirubin Alkaline Phosphatase Lactate Dehydrogenase Total Creatine Kinase CK-MB (CK-2) Rel Index Troponin T C-Reactive Protein Total Protein Albumin Prealbumin LDL Cholesterol Direct HDL Cholesterol Arterial Blood Glucose Arterial Blood Ionized Calcium Urine WBC (Auto) 03/12/20 03/12/20 03/12/20 04:39 05:28 11:34 WBC RBC Hgb Hct MCV MCH RDW Plt Count Lymph % (Auto) [place] % (Auto) Lymph # (Auto) [place] # (Auto) Seg Neutrophils % Seg Neuts % (Manual) Lymphocytes % (Manual) Monocytes % (Manual) Basophils % (Manual) Seg Neutrophils # Seg Neutrophils # Man Lymphocytes # (Manual) Monocytes # (Manual) Eosinophils # (Manual) Basophils # (Manual) PT INR D-Dimer ABG pH POC ABG pCO2 POC ABG pO2 ABG pO2 ABG HCO3 ABG O2 Saturation ABG Base Excess ABG Hemoglobin ABG Oxyhemoglobin ABG Potassium ABG Glucose Oxyhemoglobin Carboxyhemoglobin Sodium 147 H Potassium Chloride Carbon Dioxide 40 H BUN Creatinine < 0.2 L Glucose 175 H POC Glucose 167 H 144 H Calcium Ferritin Total Bilirubin Alkaline Phosphatase Lactate Dehydrogenase Total Creatine Kinase CK-MB (CK-2) Rel Index Troponin T C-Reactive Protein Total Protein Albumin Prealbumin LDL Cholesterol Direct HDL Cholesterol Arterial Blood Glucose Arterial Blood Ionized Calcium Urine WBC (Auto) 03/12/20 03/12/20 03/13/20 17:32 23:57 05:57 WBC RBC Hgb Hct MCV MCH RDW Plt Count Lymph % (Auto) [place] % (Auto) Lymph # (Auto) [place] # (Auto) Seg Neutrophils % Seg Neuts % (Manual) Lymphocytes % (Manual) Monocytes % (Manual) Basophils % (Manual) Seg Neutrophils # Seg Neutrophils # Man Lymphocytes # (Manual) Monocytes # (Manual) Eosinophils # (Manual) Basophils # (Manual) PT INR D-Dimer ABG pH POC ABG pCO2 POC ABG pO2 ABG pO2 ABG HCO3 ABG O2 Saturation ABG Base Excess ABG Hemoglobin ABG Oxyhemoglobin ABG Potassium ABG Glucose Oxyhemoglobin Carboxyhemoglobin Sodium Potassium Chloride Carbon Dioxide BUN Creatinine Glucose POC Glucose 141 H 137 H 161 H Calcium Ferritin Total Bilirubin Alkaline Phosphatase Lactate Dehydrogenase Total Creatine Kinase CK-MB (CK-2) Rel Index Troponin T C-Reactive Protein Total Protein Albumin Prealbumin LDL Cholesterol Direct HDL Cholesterol Arterial Blood Glucose Arterial Blood Ionized Calcium Urine WBC (Auto) 03/13/20 03/13/20 03/13/20 12:28 14:14 18:39 WBC RBC Hgb Hct MCV MCH RDW Plt Count Lymph % (Auto) [place] % (Auto) Lymph # (Auto) [place] # (Auto) Seg Neutrophils % Seg Neuts % (Manual) Lymphocytes % (Manual) Monocytes % (Manual) Basophils % (Manual) Seg Neutrophils # Seg Neutrophils # Man Lymphocytes # (Manual) Monocytes # (Manual) Eosinophils # (Manual) Basophils # (Manual) PT INR D-Dimer ABG pH POC ABG pCO2 POC ABG pO2 ABG pO2 ABG HCO3 ABG O2 Saturation ABG Base Excess ABG Hemoglobin ABG Oxyhemoglobin ABG Potassium ABG Glucose Oxyhemoglobin Carboxyhemoglobin Sodium Potassium Chloride Carbon Dioxide 39 H BUN Creatinine < 0.2 L Glucose 129 H POC Glucose 130 H 125 H Calcium Ferritin Total Bilirubin Alkaline Phosphatase Lactate Dehydrogenase Total Creatine Kinase CK-MB (CK-2) Rel Index Troponin T C-Reactive Protein Total Protein Albumin Prealbumin LDL Cholesterol Direct HDL Cholesterol Arterial Blood Glucose Arterial Blood Ionized Calcium Urine WBC (Auto) 03/13/20 03/14/20 03/14/20 23:33 05:24 08:07 WBC 16.8 H RBC 2.81 L Hgb 7.9 L Hct 23.9 L MCV MCH RDW 15.9 H Plt Count Lymph % (Auto) [place] % (Auto) Lymph # (Auto) [place] # (Auto) Seg Neutrophils % Seg Neuts % (Manual) 84.0 H Lymphocytes % (Manual) 10.0 L Monocytes % (Manual) Basophils % (Manual) Seg Neutrophils # Seg Neutrophils # Man 14.1 H Lymphocytes # (Manual) Monocytes # (Manual) Eosinophils # (Manual) Basophils # (Manual) PT INR D-Dimer ABG pH POC ABG pCO2 POC ABG pO2 ABG pO2 ABG HCO3 ABG O2 Saturation ABG Base Excess ABG Hemoglobin ABG Oxyhemoglobin ABG Potassium ABG Glucose Oxyhemoglobin Carboxyhemoglobin Sodium Potassium Chloride Carbon Dioxide BUN Creatinine Glucose POC Glucose 146 H 125 H Calcium Ferritin Total Bilirubin Alkaline Phosphatase Lactate Dehydrogenase Total Creatine Kinase CK-MB (CK-2) Rel Index Troponin T C-Reactive Protein Total Protein Albumin Prealbumin LDL Cholesterol Direct HDL Cholesterol Arterial Blood Glucose Arterial Blood Ionized Calcium Urine WBC (Auto) 03/14/20 03/14/20 03/14/20 08:07 12:21 18:26 WBC RBC Hgb Hct MCV MCH RDW Plt Count Lymph % (Auto) [place] % (Auto) Lymph # (Auto) [place] # (Auto) Seg Neutrophils % Seg Neuts % (Manual) Lymphocytes % (Manual) Monocytes % (Manual) Basophils % (Manual) Seg Neutrophils # Seg Neutrophils # Man Lymphocytes # (Manual) Monocytes # (Manual) Eosinophils # (Manual) Basophils # (Manual) PT INR D-Dimer ABG pH POC ABG pCO2 POC ABG pO2 ABG pO2 ABG HCO3 ABG O2 Saturation ABG Base Excess ABG Hemoglobin ABG Oxyhemoglobin ABG Potassium ABG Glucose Oxyhemoglobin Carboxyhemoglobin Sodium Potassium Chloride 97.0 L Carbon Dioxide 37 H BUN Creatinine < 0.2 L Glucose 129 H POC Glucose 109 H 142 H Calcium 8.3 L Ferritin Total Bilirubin Alkaline Phosphatase Lactate Dehydrogenase Total Creatine Kinase CK-MB (CK-2) Rel Index Troponin T C-Reactive Protein Total Protein Albumin Prealbumin LDL Cholesterol Direct HDL Cholesterol Arterial Blood Glucose Arterial Blood Ionized Calcium Urine WBC (Auto) 03/14/20 03/15/20 03/15/20 23:57 05:46 08:06 WBC 19.7 H RBC 3.29 L Hgb 9.1 L Hct 28.0 L MCV MCH RDW 15.9 H Plt Count Lymph % (Auto) [place] % (Auto) Lymph # (Auto) [place] # (Auto) Seg Neutrophils % Seg Neuts % (Manual) Lymphocytes % (Manual) Monocytes % (Manual) Basophils % (Manual) Seg Neutrophils # Seg Neutrophils # Man Lymphocytes # (Manual) Monocytes # (Manual) Eosinophils # (Manual) Basophils # (Manual) PT INR D-Dimer ABG pH POC ABG pCO2 POC ABG pO2 ABG pO2 ABG HCO3 ABG O2 Saturation ABG Base Excess ABG Hemoglobin ABG Oxyhemoglobin ABG Potassium ABG Glucose Oxyhemoglobin Carboxyhemoglobin Sodium Potassium Chloride Carbon Dioxide BUN Creatinine Glucose POC Glucose 157 H 118 H Calcium Ferritin Total Bilirubin Alkaline Phosphatase Lactate Dehydrogenase Total Creatine Kinase CK-MB (CK-2) Rel Index Troponin T C-Reactive Protein Total Protein Albumin Prealbumin LDL Cholesterol Direct HDL Cholesterol Arterial Blood Glucose Arterial Blood Ionized Calcium Urine WBC (Auto) 03/15/20 03/15/20 03/15/20 08:06 12:44 18:09 WBC RBC Hgb Hct MCV MCH RDW Plt Count Lymph % (Auto) [place] % (Auto) Lymph # (Auto) [place] # (Auto) Seg Neutrophils % Seg Neuts % (Manual) Lymphocytes % (Manual) Monocytes % (Manual) Basophils % (Manual) Seg Neutrophils # Seg Neutrophils # Man Lymphocytes # (Manual) Monocytes # (Manual) Eosinophils # (Manual) Basophils # (Manual) PT INR D-Dimer ABG pH POC ABG pCO2 POC ABG pO2 ABG pO2 ABG HCO3 ABG O2 Saturation ABG Base Excess ABG Hemoglobin ABG Oxyhemoglobin ABG Potassium ABG Glucose Oxyhemoglobin Carboxyhemoglobin Sodium 136 L Potassium Chloride 93.6 L Carbon Dioxide 37 H BUN Creatinine < 0.2 L Glucose 132 H POC Glucose 151 H 164 H Calcium Ferritin Total Bilirubin Alkaline Phosphatase Lactate Dehydrogenase Total Creatine Kinase CK-MB (CK-2) Rel Index Troponin T C-Reactive Protein Total Protein Albumin Prealbumin LDL Cholesterol Direct HDL Cholesterol Arterial Blood Glucose Arterial Blood Ionized Calcium Urine WBC (Auto) 03/15/20 03/16/20 03/16/20 23:26 05:39 11:58 WBC RBC Hgb Hct MCV MCH RDW Plt Count Lymph % (Auto) [place] % (Auto) Lymph # (Auto) [place] # (Auto) Seg Neutrophils % Seg Neuts % (Manual) Lymphocytes % (Manual) Monocytes % (Manual) Basophils % (Manual) Seg Neutrophils # Seg Neutrophils # Man Lymphocytes # (Manual) Monocytes # (Manual) Eosinophils # (Manual) Basophils # (Manual) PT INR D-Dimer ABG pH POC ABG pCO2 POC ABG pO2 ABG pO2 ABG HCO3 ABG O2 Saturation ABG Base Excess ABG Hemoglobin ABG Oxyhemoglobin ABG Potassium ABG Glucose Oxyhemoglobin Carboxyhemoglobin Sodium Potassium Chloride Carbon Dioxide BUN Creatinine Glucose POC Glucose 136 H 116 H 109 H Calcium Ferritin Total Bilirubin Alkaline Phosphatase Lactate Dehydrogenase Total Creatine Kinase CK-MB (CK-2) Rel Index Troponin T C-Reactive Protein Total Protein Albumin Prealbumin LDL Cholesterol Direct HDL Cholesterol Arterial Blood Glucose Arterial Blood Ionized Calcium Urine WBC (Auto) 03/16/20 03/17/20 03/17/20 23:56 04:40 04:40 WBC 18.0 H RBC 3.33 L Hgb 9.5 L Hct 28.8 L MCV MCH RDW 16.4 H Plt Count 499 H Lymph % (Auto) [place] % (Auto) Lymph # (Auto) [place] # (Auto) Seg Neutrophils % Seg Neuts % (Manual) 82.0 H Lymphocytes % (Manual) 8.0 L Monocytes % (Manual) Basophils % (Manual) Seg Neutrophils # Seg Neutrophils # Man 14.8 H Lymphocytes # (Manual) Monocytes # (Manual) 1.3 H Eosinophils # (Manual) Basophils # (Manual) 0.2 H PT INR D-Dimer ABG pH POC ABG pCO2 POC ABG pO2 ABG pO2 ABG HCO3 ABG O2 Saturation ABG Base Excess ABG Hemoglobin ABG Oxyhemoglobin ABG Potassium ABG Glucose Oxyhemoglobin Carboxyhemoglobin Sodium Potassium Chloride 97.7 L Carbon Dioxide 32 H BUN Creatinine < 0.2 L Glucose 114 H POC Glucose 131 H Calcium Ferritin Total Bilirubin Alkaline Phosphatase Lactate Dehydrogenase Total Creatine Kinase CK-MB (CK-2) Rel Index Troponin T C-Reactive Protein Total Protein Albumin Prealbumin LDL Cholesterol Direct HDL Cholesterol Arterial Blood Glucose Arterial Blood Ionized Calcium Urine WBC (Auto) 03/18/20 03/18/20 03/18/20 00:21 05:21 11:55 WBC RBC Hgb Hct MCV MCH RDW Plt Count Lymph % (Auto) [place] % (Auto) Lymph # (Auto) [place] # (Auto) Seg Neutrophils % Seg Neuts % (Manual) Lymphocytes % (Manual) Monocytes % (Manual) Basophils % (Manual) Seg Neutrophils # Seg Neutrophils # Man Lymphocytes # (Manual) Monocytes # (Manual) Eosinophils # (Manual) Basophils # (Manual) PT INR D-Dimer ABG pH POC ABG pCO2 POC ABG pO2 ABG pO2 ABG HCO3 ABG O2 Saturation ABG Base Excess ABG Hemoglobin ABG Oxyhemoglobin ABG Potassium ABG Glucose Oxyhemoglobin Carboxyhemoglobin Sodium Potassium Chloride Carbon Dioxide BUN Creatinine Glucose POC Glucose 124 H 138 H 119 H Calcium Ferritin Total Bilirubin Alkaline Phosphatase Lactate Dehydrogenase Total Creatine Kinase CK-MB (CK-2) Rel Index Troponin T C-Reactive Protein Total Protein Albumin Prealbumin LDL Cholesterol Direct HDL Cholesterol Arterial Blood Glucose Arterial Blood Ionized Calcium Urine WBC (Auto) 03/18/20 03/18/20 03/19/20 17:03 23:58 05:24 WBC RBC Hgb Hct MCV MCH RDW Plt Count Lymph % (Auto) [place] % (Auto) Lymph # (Auto) [place] # (Auto) Seg Neutrophils % Seg Neuts % (Manual) Lymphocytes % (Manual) Monocytes % (Manual) Basophils % (Manual) Seg Neutrophils # Seg Neutrophils # Man Lymphocytes # (Manual) Monocytes # (Manual) Eosinophils # (Manual) Basophils # (Manual) PT INR D-Dimer ABG pH POC ABG pCO2 POC ABG pO2 ABG pO2 ABG HCO3 ABG O2 Saturation ABG Base Excess ABG Hemoglobin ABG Oxyhemoglobin ABG Potassium ABG Glucose Oxyhemoglobin Carboxyhemoglobin Sodium Potassium Chloride Carbon Dioxide BUN Creatinine Glucose POC Glucose 128 H 128 H 115 H Calcium Ferritin Total Bilirubin Alkaline Phosphatase Lactate Dehydrogenase Total Creatine Kinase CK-MB (CK-2) Rel Index Troponin T C-Reactive Protein Total Protein Albumin Prealbumin LDL Cholesterol Direct HDL Cholesterol Arterial Blood Glucose Arterial Blood Ionized Calcium Urine WBC (Auto) 03/19/20 03/19/20 03/19/20 08:05 08:05 11:56 WBC 16.8 H RBC 3.36 L Hgb 9.4 L Hct 28.8 L MCV MCH RDW 17.4 H Plt Count 567 H Lymph % (Auto) 7.8 L [place] % (Auto) Lymph # (Auto) [place] # (Auto) 1.2 H Seg Neutrophils % 83.5 H Seg Neuts % (Manual) Lymphocytes % (Manual) Monocytes % (Manual) Basophils % (Manual) Seg Neutrophils # 14.1 H Seg Neutrophils # Man Lymphocytes # (Manual) Monocytes # (Manual) Eosinophils # (Manual) Basophils # (Manual) PT INR D-Dimer ABG pH POC ABG pCO2 POC ABG pO2 ABG pO2 ABG HCO3 ABG O2 Saturation ABG Base Excess ABG Hemoglobin ABG Oxyhemoglobin ABG Potassium ABG Glucose Oxyhemoglobin Carboxyhemoglobin Sodium Potassium Chloride Carbon Dioxide 36 H BUN Creatinine < 0.2 L Glucose 135 H POC Glucose 128 H Calcium Ferritin Total Bilirubin Alkaline Phosphatase Lactate Dehydrogenase Total Creatine Kinase CK-MB (CK-2) Rel Index Troponin T C-Reactive Protein Total Protein Albumin Prealbumin LDL Cholesterol Direct HDL Cholesterol Arterial Blood Glucose Arterial Blood Ionized Calcium Urine WBC (Auto) 03/19/20 03/20/20 03/20/20 23:59 05:12 16:52 WBC RBC Hgb Hct MCV MCH RDW Plt Count Lymph % (Auto) [place] % (Auto) Lymph # (Auto) [place] # (Auto) Seg Neutrophils % Seg Neuts % (Manual) Lymphocytes % (Manual) Monocytes % (Manual) Basophils % (Manual) Seg Neutrophils # Seg Neutrophils # Man Lymphocytes # (Manual) Monocytes # (Manual) Eosinophils # (Manual) Basophils # (Manual) PT INR D-Dimer ABG pH POC ABG pCO2 POC ABG pO2 ABG pO2 ABG HCO3 ABG O2 Saturation ABG Base Excess ABG Hemoglobin ABG Oxyhemoglobin ABG Potassium ABG Glucose Oxyhemoglobin Carboxyhemoglobin Sodium Potassium Chloride Carbon Dioxide BUN Creatinine Glucose POC Glucose 120 H 131 H 124 H Calcium Ferritin Total Bilirubin Alkaline Phosphatase Lactate Dehydrogenase Total Creatine Kinase CK-MB (CK-2) Rel Index Troponin T C-Reactive Protein Total Protein Albumin Prealbumin LDL Cholesterol Direct HDL Cholesterol Arterial Blood Glucose Arterial Blood Ionized Calcium Urine WBC (Auto) 03/20/20 03/21/20 03/21/20 23:35 04:50 07:35 WBC 15.2 H RBC 3.39 L Hgb 9.4 L Hct 29.4 L MCV MCH RDW 17.6 H Plt Count 518 H Lymph % (Auto) [place] % (Auto) Lymph # (Auto) [place] # (Auto) Seg Neutrophils % Seg Neuts % (Manual) 83.0 H Lymphocytes % (Manual) 10.0 L Monocytes % (Manual) Basophils % (Manual) 2.0 H Seg Neutrophils # Seg Neutrophils # Man 12.6 H Lymphocytes # (Manual) Monocytes # (Manual) Eosinophils # (Manual) Basophils # (Manual) 0.3 H PT INR D-Dimer ABG pH POC ABG pCO2 POC ABG pO2 ABG pO2 ABG HCO3 ABG O2 Saturation ABG Base Excess ABG Hemoglobin ABG Oxyhemoglobin ABG Potassium ABG Glucose Oxyhemoglobin Carboxyhemoglobin Sodium Potassium Chloride Carbon Dioxide BUN Creatinine Glucose POC Glucose 125 H 127 H Calcium Ferritin Total Bilirubin Alkaline Phosphatase Lactate Dehydrogenase Total Creatine Kinase CK-MB (CK-2) Rel Index Troponin T C-Reactive Protein Total Protein Albumin Prealbumin LDL Cholesterol Direct HDL Cholesterol Arterial Blood Glucose Arterial Blood Ionized Calcium Urine WBC (Auto) 03/21/20 03/21/20 03/21/20 07:35 11:45 17:22 WBC RBC Hgb Hct MCV MCH RDW Plt Count Lymph % (Auto) [place] % (Auto) Lymph # (Auto) [place] # (Auto) Seg Neutrophils % Seg Neuts % (Manual) Lymphocytes % (Manual) Monocytes % (Manual) Basophils % (Manual) Seg Neutrophils # Seg Neutrophils # Man Lymphocytes # (Manual) Monocytes # (Manual) Eosinophils # (Manual) Basophils # (Manual) PT INR D-Dimer ABG pH POC ABG pCO2 POC ABG pO2 ABG pO2 ABG HCO3 ABG O2 Saturation ABG Base Excess ABG Hemoglobin ABG Oxyhemoglobin ABG Potassium ABG Glucose Oxyhemoglobin Carboxyhemoglobin Sodium 136 L Potassium Chloride 97.7 L Carbon Dioxide 32 H BUN Creatinine < 0.2 L Glucose 103 H POC Glucose 126 H 120 H Calcium Ferritin Total Bilirubin Alkaline Phosphatase Lactate Dehydrogenase Total Creatine Kinase CK-MB (CK-2) Rel Index Troponin T C-Reactive Protein Total Protein Albumin Prealbumin LDL Cholesterol Direct HDL Cholesterol Arterial Blood Glucose Arterial Blood Ionized Calcium Urine WBC (Auto) 03/22/20 03/22/20 03/22/20 05:09 06:34 06:34 WBC 17.5 H RBC 3.52 L Hgb 10.0 L Hct 30.7 L MCV MCH RDW 17.5 H Plt Count 499 H Lymph % (Auto) [place] % (Auto) Lymph # (Auto) [place] # (Auto) Seg Neutrophils % Seg Neuts % (Manual) 80.0 H Lymphocytes % (Manual) 10.0 L Monocytes % (Manual) Basophils % (Manual) Seg Neutrophils # Seg Neutrophils # Man 14.0 H Lymphocytes # (Manual) Monocytes # (Manual) Eosinophils # (Manual) Basophils # (Manual) PT INR D-Dimer ABG pH POC ABG pCO2 POC ABG pO2 ABG pO2 ABG HCO3 ABG O2 Saturation ABG Base Excess ABG Hemoglobin ABG Oxyhemoglobin ABG Potassium ABG Glucose Oxyhemoglobin Carboxyhemoglobin Sodium Potassium Chloride 96.6 L Carbon Dioxide 38 H BUN Creatinine < 0.2 L Glucose 139 H POC Glucose 125 H Calcium Ferritin Total Bilirubin Alkaline Phosphatase Lactate Dehydrogenase Total Creatine Kinase CK-MB (CK-2) Rel Index Troponin T C-Reactive Protein Total Protein Albumin Prealbumin LDL Cholesterol Direct HDL Cholesterol Arterial Blood Glucose Arterial Blood Ionized Calcium Urine WBC (Auto) 03/22/20 03/22/20 03/22/20 11:45 18:00 23:32 WBC RBC Hgb Hct MCV MCH RDW Plt Count Lymph % (Auto) [place] % (Auto) Lymph # (Auto) [place] # (Auto) Seg Neutrophils % Seg Neuts % (Manual) Lymphocytes % (Manual) Monocytes % (Manual) Basophils % (Manual) Seg Neutrophils # Seg Neutrophils # Man Lymphocytes # (Manual) Monocytes # (Manual) Eosinophils # (Manual) Basophils # (Manual) PT INR D-Dimer ABG pH POC ABG pCO2 POC ABG pO2 ABG pO2 ABG HCO3 ABG O2 Saturation ABG Base Excess ABG Hemoglobin ABG Oxyhemoglobin ABG Potassium ABG Glucose Oxyhemoglobin Carboxyhemoglobin Sodium Potassium Chloride Carbon Dioxide BUN Creatinine Glucose POC Glucose 135 H 133 H Calcium Ferritin Total Bilirubin Alkaline Phosphatase Lactate Dehydrogenase Total Creatine Kinase CK-MB (CK-2) Rel Index Troponin T 0.113 H* C-Reactive Protein Total Protein Albumin Prealbumin LDL Cholesterol Direct HDL Cholesterol Arterial Blood Glucose Arterial Blood Ionized Calcium Urine WBC (Auto) 03/23/20 03/23/20 03/23/20 01:47 06:21 07:57 WBC RBC Hgb Hct MCV MCH RDW Plt Count Lymph % (Auto) [place] % (Auto) Lymph # (Auto) [place] # (Auto) Seg Neutrophils % Seg Neuts % (Manual) Lymphocytes % (Manual) Monocytes % (Manual) Basophils % (Manual) Seg Neutrophils # Seg Neutrophils # Man Lymphocytes # (Manual) Monocytes # (Manual) Eosinophils # (Manual) Basophils # (Manual) PT INR D-Dimer ABG pH POC ABG pCO2 POC ABG pO2 ABG pO2 ABG HCO3 ABG O2 Saturation ABG Base Excess ABG Hemoglobin ABG Oxyhemoglobin ABG Potassium ABG Glucose Oxyhemoglobin Carboxyhemoglobin Sodium Potassium Chloride Carbon Dioxide BUN Creatinine Glucose POC Glucose 130 H Calcium Ferritin Total Bilirubin Alkaline Phosphatase Lactate Dehydrogenase Total Creatine Kinase CK-MB (CK-2) Rel Index Troponin T 0.143 H* D 0.105 H* D C-Reactive Protein Total Protein Albumin Prealbumin LDL Cholesterol Direct HDL Cholesterol Arterial Blood Glucose Arterial Blood Ionized Calcium Urine WBC (Auto) 03/23/20 03/24/20 03/24/20 12:02 05:33 07:15 WBC 18.0 H RBC Hgb 11.0 L Hct 34.0 L MCV MCH RDW 17.4 H Plt Count 520 H Lymph % (Auto) [place] % (Auto) Lymph # (Auto) [place] # (Auto) Seg Neutrophils % Seg Neuts % (Manual) 88.0 H Lymphocytes % (Manual) 7.0 L Monocytes % (Manual) Basophils % (Manual) Seg Neutrophils # Seg Neutrophils # Man 15.8 H Lymphocytes # (Manual) Monocytes # (Manual) Eosinophils # (Manual) Basophils # (Manual) PT INR D-Dimer ABG pH POC ABG pCO2 POC ABG pO2 ABG pO2 ABG HCO3 ABG O2 Saturation ABG Base Excess ABG Hemoglobin ABG Oxyhemoglobin ABG Potassium ABG Glucose Oxyhemoglobin Carboxyhemoglobin Sodium Potassium Chloride Carbon Dioxide BUN Creatinine Glucose POC Glucose 137 H 112 H Calcium Ferritin Total Bilirubin Alkaline Phosphatase Lactate Dehydrogenase Total Creatine Kinase CK-MB (CK-2) Rel Index Troponin T C-Reactive Protein Total Protein Albumin Prealbumin LDL Cholesterol Direct HDL Cholesterol Arterial Blood Glucose Arterial Blood Ionized Calcium Urine WBC (Auto) 03/24/20 03/24/20 03/24/20 07:15 11:22 23:30 WBC RBC Hgb Hct MCV MCH RDW Plt Count Lymph % (Auto) [place] % (Auto) Lymph # (Auto) [place] # (Auto) Seg Neutrophils % Seg Neuts % (Manual) Lymphocytes % (Manual) Monocytes % (Manual) Basophils % (Manual) Seg Neutrophils # Seg Neutrophils # Man Lymphocytes # (Manual) Monocytes # (Manual) Eosinophils # (Manual) Basophils # (Manual) PT INR D-Dimer ABG pH POC ABG pCO2 POC ABG pO2 ABG pO2 ABG HCO3 ABG O2 Saturation ABG Base Excess ABG Hemoglobin ABG Oxyhemoglobin ABG Potassium ABG Glucose Oxyhemoglobin Carboxyhemoglobin Sodium Potassium Chloride 96.6 L Carbon Dioxide 38 H BUN Creatinine < 0.2 L Glucose 141 H POC Glucose 130 H 120 H Calcium Ferritin Total Bilirubin Alkaline Phosphatase Lactate Dehydrogenase Total Creatine Kinase CK-MB (CK-2) Rel Index Troponin T C-Reactive Protein Total Protein Albumin Prealbumin LDL Cholesterol Direct HDL Cholesterol Arterial Blood Glucose Arterial Blood Ionized Calcium Urine WBC (Auto) 03/25/20 03/25/20 03/25/20 05:48 17:53 23:18 WBC RBC Hgb Hct MCV MCH RDW Plt Count Lymph % (Auto) [place] % (Auto) Lymph # (Auto) [place] # (Auto) Seg Neutrophils % Seg Neuts % (Manual) Lymphocytes % (Manual) Monocytes % (Manual) Basophils % (Manual) Seg Neutrophils # Seg Neutrophils # Man Lymphocytes # (Manual) Monocytes # (Manual) Eosinophils # (Manual) Basophils # (Manual) PT INR D-Dimer ABG pH POC ABG pCO2 POC ABG pO2 ABG pO2 ABG HCO3 ABG O2 Saturation ABG Base Excess ABG Hemoglobin ABG Oxyhemoglobin ABG Potassium ABG Glucose Oxyhemoglobin Carboxyhemoglobin Sodium Potassium Chloride Carbon Dioxide BUN Creatinine Glucose POC Glucose 124 H 109 H 131 H Calcium Ferritin Total Bilirubin Alkaline Phosphatase Lactate Dehydrogenase Total Creatine Kinase CK-MB (CK-2) Rel Index Troponin T C-Reactive Protein Total Protein Albumin Prealbumin LDL Cholesterol Direct HDL Cholesterol Arterial Blood Glucose Arterial Blood Ionized Calcium Urine WBC (Auto) 03/26/20 03/26/20 03/26/20 05:21 08:49 08:49 WBC 19.7 H RBC Hgb 10.7 L Hct 33.5 L MCV MCH 27 L RDW 17.1 H Plt Count 480 H Lymph % (Auto) 5.7 L [place] % (Auto) Lymph # (Auto) 1.1 L [place] # (Auto) 1.2 H Seg Neutrophils % 87.7 H Seg Neuts % (Manual) Lymphocytes % (Manual) Monocytes % (Manual) Basophils % (Manual) Seg Neutrophils # 17.2 H Seg Neutrophils # Man Lymphocytes # (Manual) Monocytes # (Manual) Eosinophils # (Manual) Basophils # (Manual) PT INR D-Dimer ABG pH POC ABG pCO2 POC ABG pO2 ABG pO2 ABG HCO3 ABG O2 Saturation ABG Base Excess ABG Hemoglobin ABG Oxyhemoglobin ABG Potassium ABG Glucose Oxyhemoglobin Carboxyhemoglobin Sodium Potassium Chloride 97.2 L Carbon Dioxide 36 H BUN Creatinine < 0.2 L Glucose 127 H POC Glucose 116 H Calcium Ferritin Total Bilirubin Alkaline Phosphatase Lactate Dehydrogenase Total Creatine Kinase CK-MB (CK-2) Rel Index Troponin T C-Reactive Protein Total Protein Albumin Prealbumin LDL Cholesterol Direct HDL Cholesterol Arterial Blood Glucose Arterial Blood Ionized Calcium Urine WBC (Auto) 03/26/20 03/26/20 03/26/20 11:38 18:44 23:06 WBC RBC Hgb Hct MCV MCH RDW Plt Count Lymph % (Auto) [place] % (Auto) Lymph # (Auto) [place] # (Auto) Seg Neutrophils % Seg Neuts % (Manual) Lymphocytes % (Manual) Monocytes % (Manual) Basophils % (Manual) Seg Neutrophils # Seg Neutrophils # Man Lymphocytes # (Manual) Monocytes # (Manual) Eosinophils # (Manual) Basophils # (Manual) PT INR D-Dimer ABG pH POC ABG pCO2 POC ABG pO2 ABG pO2 ABG HCO3 ABG O2 Saturation ABG Base Excess ABG Hemoglobin ABG Oxyhemoglobin ABG Potassium ABG Glucose Oxyhemoglobin Carboxyhemoglobin Sodium Potassium Chloride Carbon Dioxide BUN Creatinine Glucose POC Glucose 120 H 111 H 134 H Calcium Ferritin Total Bilirubin Alkaline Phosphatase Lactate Dehydrogenase Total Creatine Kinase CK-MB (CK-2) Rel Index Troponin T C-Reactive Protein Total Protein Albumin Prealbumin LDL Cholesterol Direct HDL Cholesterol Arterial Blood Glucose Arterial Blood Ionized Calcium Urine WBC (Auto) 03/27/20 03/27/20 03/27/20 05:41 05:59 05:59 WBC 18.6 H RBC Hgb 10.1 L Hct 31.4 L MCV MCH RDW 17.2 H Plt Count Lymph % (Auto) 8.0 L [place] % (Auto) Lymph # (Auto) [place] # (Auto) 1.2 H Seg Neutrophils % 84.7 H Seg Neuts % (Manual) Lymphocytes % (Manual) Monocytes % (Manual) Basophils % (Manual) Seg Neutrophils # 15.8 H Seg Neutrophils # Man Lymphocytes # (Manual) Monocytes # (Manual) Eosinophils # (Manual) Basophils # (Manual) PT INR D-Dimer ABG pH POC ABG pCO2 POC ABG pO2 ABG pO2 ABG HCO3 ABG O2 Saturation ABG Base Excess ABG Hemoglobin ABG Oxyhemoglobin ABG Potassium ABG Glucose Oxyhemoglobin Carboxyhemoglobin Sodium Potassium Chloride Carbon Dioxide 34 H BUN Creatinine < 0.2 L Glucose 127 H POC Glucose 129 H Calcium Ferritin Total Bilirubin Alkaline Phosphatase Lactate Dehydrogenase Total Creatine Kinase CK-MB (CK-2) Rel Index Troponin T C-Reactive Protein Total Protein Albumin Prealbumin LDL Cholesterol Direct HDL Cholesterol Arterial Blood Glucose Arterial Blood Ionized Calcium Urine WBC (Auto) 03/27/20 03/27/20 03/28/20 17:28 23:22 05:23 WBC RBC Hgb Hct MCV MCH RDW Plt Count Lymph % (Auto) [place] % (Auto) Lymph # (Auto) [place] # (Auto) Seg Neutrophils % Seg Neuts % (Manual) Lymphocytes % (Manual) Monocytes % (Manual) Basophils % (Manual) Seg Neutrophils # Seg Neutrophils # Man Lymphocytes # (Manual) Monocytes # (Manual) Eosinophils # (Manual) Basophils # (Manual) PT INR D-Dimer ABG pH POC ABG pCO2 POC ABG pO2 ABG pO2 ABG HCO3 ABG O2 Saturation ABG Base Excess ABG Hemoglobin ABG Oxyhemoglobin ABG Potassium ABG Glucose Oxyhemoglobin Carboxyhemoglobin Sodium Potassium Chloride Carbon Dioxide BUN Creatinine Glucose POC Glucose 108 H 119 H 129 H Calcium Ferritin Total Bilirubin Alkaline Phosphatase Lactate Dehydrogenase Total Creatine Kinase CK-MB (CK-2) Rel Index Troponin T C-Reactive Protein Total Protein Albumin Prealbumin LDL Cholesterol Direct HDL Cholesterol Arterial Blood Glucose Arterial Blood Ionized Calcium Urine WBC (Auto) 03/28/20 03/28/20 03/28/20 10:28 10:28 11:36 WBC 23.6 H RBC 3.62 L Hgb 10.0 L Hct 30.8 L MCV MCH RDW 16.4 H Plt Count Lymph % (Auto) [place] % (Auto) Lymph # (Auto) [place] # (Auto) Seg Neutrophils % Seg Neuts % (Manual) 89.0 H Lymphocytes % (Manual) 5.0 L Monocytes % (Manual) Basophils % (Manual) Seg Neutrophils # Seg Neutrophils # Man 21.0 H Lymphocytes # (Manual) Monocytes # (Manual) 1.2 H Eosinophils # (Manual) Basophils # (Manual) 0.2 H PT INR D-Dimer ABG pH POC ABG pCO2 POC ABG pO2 ABG pO2 ABG HCO3 ABG O2 Saturation ABG Base Excess ABG Hemoglobin ABG Oxyhemoglobin ABG Potassium ABG Glucose Oxyhemoglobin Carboxyhemoglobin Sodium 134 L Potassium Chloride 94.2 L Carbon Dioxide 35 H BUN Creatinine < 0.2 L Glucose 134 H POC Glucose Calcium Ferritin Total Bilirubin Alkaline Phosphatase Lactate Dehydrogenase Total Creatine Kinase CK-MB (CK-2) Rel Index Troponin T C-Reactive Protein Total Protein Albumin Prealbumin LDL Cholesterol Direct HDL Cholesterol Arterial Blood Glucose Arterial Blood Ionized Calcium Urine WBC (Auto) 39.0 H 03/28/20 03/28/20 03/28/20 11:51 17:08 17:17 WBC RBC Hgb Hct MCV MCH RDW Plt Count Lymph % (Auto) [place] % (Auto) Lymph # (Auto) [place] # (Auto) Seg Neutrophils % Seg Neuts % (Manual) Lymphocytes % (Manual) Monocytes % (Manual) Basophils % (Manual) Seg Neutrophils # Seg Neutrophils # Man Lymphocytes # (Manual) Monocytes # (Manual) Eosinophils # (Manual) Basophils # (Manual) PT INR D-Dimer ABG pH POC ABG pCO2 POC ABG pO2 ABG pO2 ABG HCO3 ABG O2 Saturation ABG Base Excess ABG Hemoglobin ABG Oxyhemoglobin ABG Potassium ABG Glucose Oxyhemoglobin Carboxyhemoglobin Sodium Potassium Chloride Carbon Dioxide BUN Creatinine Glucose POC Glucose 123 H 112 H Calcium Ferritin Total Bilirubin Alkaline Phosphatase Lactate Dehydrogenase Total Creatine Kinase 47 L CK-MB (CK-2) Rel Index 4.6 H Troponin T 0.090 H C-Reactive Protein Total Protein Albumin Prealbumin LDL Cholesterol Direct HDL Cholesterol Arterial Blood Glucose Arterial Blood Ionized Calcium Urine WBC (Auto) 03/28/20 03/29/20 03/29/20 23:22 05:22 10:58 WBC RBC Hgb Hct MCV MCH RDW Plt Count Lymph % (Auto) [place] % (Auto) Lymph # (Auto) [place] # (Auto) Seg Neutrophils % Seg Neuts % (Manual) Lymphocytes % (Manual) Monocytes % (Manual) Basophils % (Manual) Seg Neutrophils # Seg Neutrophils # Man Lymphocytes # (Manual) Monocytes # (Manual) Eosinophils # (Manual) Basophils # (Manual) PT INR D-Dimer ABG pH POC ABG pCO2 POC ABG pO2 ABG pO2 ABG HCO3 ABG O2 Saturation ABG Base Excess ABG Hemoglobin ABG Oxyhemoglobin ABG Potassium ABG Glucose Oxyhemoglobin Carboxyhemoglobin Sodium Potassium Chloride Carbon Dioxide BUN Creatinine Glucose POC Glucose 122 H 116 H 133 H Calcium Ferritin Total Bilirubin Alkaline Phosphatase Lactate Dehydrogenase Total Creatine Kinase CK-MB (CK-2) Rel Index Troponin T C-Reactive Protein Total Protein Albumin Prealbumin LDL Cholesterol Direct HDL Cholesterol Arterial Blood Glucose Arterial Blood Ionized Calcium Urine WBC (Auto) 03/29/20 03/29/20 03/30/20 17:18 23:14 04:57 WBC RBC Hgb Hct MCV MCH RDW Plt Count Lymph % (Auto) [place] % (Auto) Lymph # (Auto) [place] # (Auto) Seg Neutrophils % Seg Neuts % (Manual) Lymphocytes % (Manual) Monocytes % (Manual) Basophils % (Manual) Seg Neutrophils # Seg Neutrophils # Man Lymphocytes # (Manual) Monocytes # (Manual) Eosinophils # (Manual) Basophils # (Manual) PT INR D-Dimer ABG pH POC ABG pCO2 POC ABG pO2 ABG pO2 ABG HCO3 ABG O2 Saturation ABG Base Excess ABG Hemoglobin ABG Oxyhemoglobin ABG Potassium ABG Glucose Oxyhemoglobin Carboxyhemoglobin Sodium Potassium Chloride Carbon Dioxide BUN Creatinine Glucose POC Glucose 111 H 114 H 130 H Calcium Ferritin Total Bilirubin Alkaline Phosphatase Lactate Dehydrogenase Total Creatine Kinase CK-MB (CK-2) Rel Index Troponin T C-Reactive Protein Total Protein Albumin Prealbumin LDL Cholesterol Direct HDL Cholesterol Arterial Blood Glucose Arterial Blood Ionized Calcium Urine WBC (Auto) 03/30/20 03/30/20 03/30/20 11:38 14:47 14:47 WBC 19.9 H RBC Hgb 10.9 L Hct 34.4 L MCV MCH 27 L RDW 16.5 H Plt Count 441 H Lymph % (Auto) 6.4 L [place] % (Auto) Lymph # (Auto) [place] # (Auto) 1.4 H Seg Neutrophils % 86.1 H Seg Neuts % (Manual) Lymphocytes % (Manual) Monocytes % (Manual) Basophils % (Manual) Seg Neutrophils # 17.1 H Seg Neutrophils # Man Lymphocytes # (Manual) Monocytes # (Manual) Eosinophils # (Manual) Basophils # (Manual) PT INR D-Dimer ABG pH POC ABG pCO2 POC ABG pO2 ABG pO2 ABG HCO3 ABG O2 Saturation ABG Base Excess ABG Hemoglobin ABG Oxyhemoglobin ABG Potassium ABG Glucose Oxyhemoglobin Carboxyhemoglobin Sodium 133 L Potassium Chloride 94.6 L Carbon Dioxide 33 H BUN Creatinine < 0.2 L Glucose 194 H POC Glucose 139 H Calcium Ferritin Total Bilirubin Alkaline Phosphatase Lactate Dehydrogenase Total Creatine Kinase CK-MB (CK-2) Rel Index Troponin T C-Reactive Protein Total Protein Albumin 2.8 L Prealbumin LDL Cholesterol Direct HDL Cholesterol Arterial Blood Glucose Arterial Blood Ionized Calcium Urine WBC (Auto) 03/30/20 03/31/20 03/31/20 17:07 05:02 15:21 WBC RBC Hgb Hct MCV MCH RDW Plt Count Lymph % (Auto) [place] % (Auto) Lymph # (Auto) [place] # (Auto) Seg Neutrophils % Seg Neuts % (Manual) Lymphocytes % (Manual) Monocytes % (Manual) Basophils % (Manual) Seg Neutrophils # Seg Neutrophils # Man Lymphocytes # (Manual) Monocytes # (Manual) Eosinophils # (Manual) Basophils # (Manual) PT INR D-Dimer ABG pH POC ABG pCO2 POC ABG pO2 ABG pO2 ABG HCO3 ABG O2 Saturation ABG Base Excess ABG Hemoglobin ABG Oxyhemoglobin ABG Potassium ABG Glucose Oxyhemoglobin Carboxyhemoglobin Sodium Potassium Chloride Carbon Dioxide BUN Creatinine Glucose POC Glucose 163 H 108 H 110 H Calcium Ferritin Total Bilirubin Alkaline Phosphatase Lactate Dehydrogenase Total Creatine Kinase CK-MB (CK-2) Rel Index Troponin T C-Reactive Protein Total Protein Albumin Prealbumin LDL Cholesterol Direct HDL Cholesterol Arterial Blood Glucose Arterial Blood Ionized Calcium Urine WBC (Auto) 03/31/20 03/31/20 04/01/20 17:58 23:19 05:09 WBC RBC Hgb Hct MCV MCH RDW Plt Count Lymph % (Auto) [place] % (Auto) Lymph # (Auto) [place] # (Auto) Seg Neutrophils % Seg Neuts % (Manual) Lymphocytes % (Manual) Monocytes % (Manual) Basophils % (Manual) Seg Neutrophils # Seg Neutrophils # Man Lymphocytes # (Manual) Monocytes # (Manual) Eosinophils # (Manual) Basophils # (Manual) PT INR D-Dimer ABG pH POC ABG pCO2 POC ABG pO2 ABG pO2 ABG HCO3 ABG O2 Saturation ABG Base Excess ABG Hemoglobin ABG Oxyhemoglobin ABG Potassium ABG Glucose Oxyhemoglobin Carboxyhemoglobin Sodium Potassium Chloride Carbon Dioxide BUN Creatinine Glucose POC Glucose 110 H 131 H 124 H Calcium Ferritin Total Bilirubin Alkaline Phosphatase Lactate Dehydrogenase Total Creatine Kinase CK-MB (CK-2) Rel Index Troponin T C-Reactive Protein Total Protein Albumin Prealbumin LDL Cholesterol Direct HDL Cholesterol Arterial Blood Glucose Arterial Blood Ionized Calcium Urine WBC (Auto) 04/01/20 04/01/20 04/01/20 11:50 17:01 23:21 WBC RBC Hgb Hct MCV MCH RDW Plt Count Lymph % (Auto) [place] % (Auto) Lymph # (Auto) [place] # (Auto) Seg Neutrophils % Seg Neuts % (Manual) Lymphocytes % (Manual) Monocytes % (Manual) Basophils % (Manual) Seg Neutrophils # Seg Neutrophils # Man Lymphocytes # (Manual) Monocytes # (Manual) Eosinophils # (Manual) Basophils # (Manual) PT INR D-Dimer ABG pH POC ABG pCO2 POC ABG pO2 ABG pO2 ABG HCO3 ABG O2 Saturation ABG Base Excess ABG Hemoglobin ABG Oxyhemoglobin ABG Potassium ABG Glucose Oxyhemoglobin Carboxyhemoglobin Sodium Potassium Chloride Carbon Dioxide BUN Creatinine Glucose POC Glucose 136 H 115 H 124 H Calcium Ferritin Total Bilirubin Alkaline Phosphatase Lactate Dehydrogenase Total Creatine Kinase CK-MB (CK-2) Rel Index Troponin T C-Reactive Protein Total Protein Albumin Prealbumin LDL Cholesterol Direct HDL Cholesterol Arterial Blood Glucose Arterial Blood Ionized Calcium Urine WBC (Auto) 04/02/20 04/02/20 04/02/20 05:27 11:58 17:58 WBC RBC Hgb Hct MCV MCH RDW Plt Count Lymph % (Auto) [place] % (Auto) Lymph # (Auto) [place] # (Auto) Seg Neutrophils % Seg Neuts % (Manual) Lymphocytes % (Manual) Monocytes % (Manual) Basophils % (Manual) Seg Neutrophils # Seg Neutrophils # Man Lymphocytes # (Manual) Monocytes # (Manual) Eosinophils # (Manual) Basophils # (Manual) PT INR D-Dimer ABG pH POC ABG pCO2 POC ABG pO2 ABG pO2 ABG HCO3 ABG O2 Saturation ABG Base Excess ABG Hemoglobin ABG Oxyhemoglobin ABG Potassium ABG Glucose Oxyhemoglobin Carboxyhemoglobin Sodium Potassium Chloride Carbon Dioxide BUN Creatinine Glucose POC Glucose 117 H 133 H 122 H Calcium Ferritin Total Bilirubin Alkaline Phosphatase Lactate Dehydrogenase Total Creatine Kinase CK-MB (CK-2) Rel Index Troponin T C-Reactive Protein Total Protein Albumin Prealbumin LDL Cholesterol Direct HDL Cholesterol Arterial Blood Glucose Arterial Blood Ionized Calcium Urine WBC (Auto) 04/02/20 04/03/20 04/03/20 23:12 05:11 11:11 WBC RBC Hgb Hct MCV MCH RDW Plt Count Lymph % (Auto) [place] % (Auto) Lymph # (Auto) [place] # (Auto) Seg Neutrophils % Seg Neuts % (Manual) Lymphocytes % (Manual) Monocytes % (Manual) Basophils % (Manual) Seg Neutrophils # Seg Neutrophils # Man Lymphocytes # (Manual) Monocytes # (Manual) Eosinophils # (Manual) Basophils # (Manual) PT INR D-Dimer ABG pH POC ABG pCO2 POC ABG pO2 ABG pO2 ABG HCO3 ABG O2 Saturation ABG Base Excess ABG Hemoglobin ABG Oxyhemoglobin ABG Potassium ABG Glucose Oxyhemoglobin Carboxyhemoglobin Sodium Potassium Chloride Carbon Dioxide BUN Creatinine Glucose POC Glucose 130 H 139 H 136 H Calcium Ferritin Total Bilirubin Alkaline Phosphatase Lactate Dehydrogenase Total Creatine Kinase CK-MB (CK-2) Rel Index Troponin T C-Reactive Protein Total Protein Albumin Prealbumin LDL Cholesterol Direct HDL Cholesterol Arterial Blood Glucose Arterial Blood Ionized Calcium Urine WBC (Auto) 04/03/20 04/03/20 04/04/20 16:51 23:25 05:29 WBC RBC Hgb Hct MCV MCH RDW Plt Count Lymph % (Auto) [place] % (Auto) Lymph # (Auto) [place] # (Auto) Seg Neutrophils % Seg Neuts % (Manual) Lymphocytes % (Manual) Monocytes % (Manual) Basophils % (Manual) Seg Neutrophils # Seg Neutrophils # Man Lymphocytes # (Manual) Monocytes # (Manual) Eosinophils # (Manual) Basophils # (Manual) PT INR D-Dimer ABG pH POC ABG pCO2 POC ABG pO2 ABG pO2 ABG HCO3 ABG O2 Saturation ABG Base Excess ABG Hemoglobin ABG Oxyhemoglobin ABG Potassium ABG Glucose Oxyhemoglobin Carboxyhemoglobin Sodium Potassium Chloride Carbon Dioxide BUN Creatinine Glucose POC Glucose 118 H 111 H 126 H Calcium Ferritin Total Bilirubin Alkaline Phosphatase Lactate Dehydrogenase Total Creatine Kinase CK-MB (CK-2) Rel Index Troponin T C-Reactive Protein Total Protein Albumin Prealbumin LDL Cholesterol Direct HDL Cholesterol Arterial Blood Glucose Arterial Blood Ionized Calcium Urine WBC (Auto) 04/04/20 04/04/20 04/04/20 11:47 17:41 23:05 WBC RBC Hgb Hct MCV MCH RDW Plt Count Lymph % (Auto) [place] % (Auto) Lymph # (Auto) [place] # (Auto) Seg Neutrophils % Seg Neuts % (Manual) Lymphocytes % (Manual) Monocytes % (Manual) Basophils % (Manual) Seg Neutrophils # Seg Neutrophils # Man Lymphocytes # (Manual) Monocytes # (Manual) Eosinophils # (Manual) Basophils # (Manual) PT INR D-Dimer ABG pH POC ABG pCO2 POC ABG pO2 ABG pO2 ABG HCO3 ABG O2 Saturation ABG Base Excess ABG Hemoglobin ABG Oxyhemoglobin ABG Potassium ABG Glucose Oxyhemoglobin Carboxyhemoglobin Sodium Potassium Chloride Carbon Dioxide BUN Creatinine Glucose POC Glucose 123 H 120 H 119 H Calcium Ferritin Total Bilirubin Alkaline Phosphatase Lactate Dehydrogenase Total Creatine Kinase CK-MB (CK-2) Rel Index Troponin T C-Reactive Protein Total Protein Albumin Prealbumin LDL Cholesterol Direct HDL Cholesterol Arterial Blood Glucose Arterial Blood Ionized Calcium Urine WBC (Auto) 04/05/20 04/05/20 04/05/20 05:14 12:16 18:48 WBC RBC Hgb Hct MCV MCH RDW Plt Count Lymph % (Auto) [place] % (Auto) Lymph # (Auto) [place] # (Auto) Seg Neutrophils % Seg Neuts % (Manual) Lymphocytes % (Manual) Monocytes % (Manual) Basophils % (Manual) Seg Neutrophils # Seg Neutrophils # Man Lymphocytes # (Manual) Monocytes # (Manual) Eosinophils # (Manual) Basophils # (Manual) PT INR D-Dimer ABG pH POC ABG pCO2 POC ABG pO2 ABG pO2 ABG HCO3 ABG O2 Saturation ABG Base Excess ABG Hemoglobin ABG Oxyhemoglobin ABG Potassium ABG Glucose Oxyhemoglobin Carboxyhemoglobin Sodium Potassium Chloride Carbon Dioxide BUN Creatinine Glucose POC Glucose 123 H 148 H 106 H Calcium Ferritin Total Bilirubin Alkaline Phosphatase Lactate Dehydrogenase Total Creatine Kinase CK-MB (CK-2) Rel Index Troponin T C-Reactive Protein Total Protein Albumin Prealbumin LDL Cholesterol Direct HDL Cholesterol Arterial Blood Glucose Arterial Blood Ionized Calcium Urine WBC (Auto) 04/06/20 04/06/20 04/06/20 00:47 03:26 08:24 WBC RBC Hgb Hct MCV MCH RDW Plt Count Lymph % (Auto) [place] % (Auto) Lymph # (Auto) [place] # (Auto) Seg Neutrophils % Seg Neuts % (Manual) Lymphocytes % (Manual) Monocytes % (Manual) Basophils % (Manual) Seg Neutrophils # Seg Neutrophils # Man Lymphocytes # (Manual) Monocytes # (Manual) Eosinophils # (Manual) Basophils # (Manual) PT INR D-Dimer ABG pH POC ABG pCO2 POC ABG pO2 ABG pO2 ABG HCO3 ABG O2 Saturation ABG Base Excess ABG Hemoglobin ABG Oxyhemoglobin ABG Potassium ABG Glucose Oxyhemoglobin Carboxyhemoglobin Sodium Potassium Chloride Carbon Dioxide BUN Creatinine Glucose POC Glucose 129 H 134 H 131 H Calcium Ferritin Total Bilirubin Alkaline Phosphatase Lactate Dehydrogenase Total Creatine Kinase CK-MB (CK-2) Rel Index Troponin T C-Reactive Protein Total Protein Albumin Prealbumin LDL Cholesterol Direct HDL Cholesterol Arterial Blood Glucose Arterial Blood Ionized Calcium Urine WBC (Auto) 04/06/20 04/06/20 04/06/20 11:16 16:27 23:01 WBC RBC Hgb Hct MCV MCH RDW Plt Count Lymph % (Auto) [place] % (Auto) Lymph # (Auto) [place] # (Auto) Seg Neutrophils % Seg Neuts % (Manual) Lymphocytes % (Manual) Monocytes % (Manual) Basophils % (Manual) Seg Neutrophils # Seg Neutrophils # Man Lymphocytes # (Manual) Monocytes # (Manual) Eosinophils # (Manual) Basophils # (Manual) PT INR D-Dimer ABG pH POC ABG pCO2 POC ABG pO2 ABG pO2 ABG HCO3 ABG O2 Saturation ABG Base Excess ABG Hemoglobin ABG Oxyhemoglobin ABG Potassium ABG Glucose Oxyhemoglobin Carboxyhemoglobin Sodium Potassium Chloride Carbon Dioxide BUN Creatinine Glucose POC Glucose 131 H 107 H 125 H Calcium Ferritin Total Bilirubin Alkaline Phosphatase Lactate Dehydrogenase Total Creatine Kinase CK-MB (CK-2) Rel Index Troponin T C-Reactive Protein Total Protein Albumin Prealbumin LDL Cholesterol Direct HDL Cholesterol Arterial Blood Glucose Arterial Blood Ionized Calcium Urine WBC (Auto) 04/07/20 04/07/20 04/07/20 05:24 12:41 17:40 WBC RBC Hgb Hct MCV MCH RDW Plt Count Lymph % (Auto) [place] % (Auto) Lymph # (Auto) [place] # (Auto) Seg Neutrophils % Seg Neuts % (Manual) Lymphocytes % (Manual) Monocytes % (Manual) Basophils % (Manual) Seg Neutrophils # Seg Neutrophils # Man Lymphocytes # (Manual) Monocytes # (Manual) Eosinophils # (Manual) Basophils # (Manual) PT INR D-Dimer ABG pH POC ABG pCO2 POC ABG pO2 ABG pO2 ABG HCO3 ABG O2 Saturation ABG Base Excess ABG Hemoglobin ABG Oxyhemoglobin ABG Potassium ABG Glucose Oxyhemoglobin Carboxyhemoglobin Sodium Potassium Chloride Carbon Dioxide BUN Creatinine Glucose POC Glucose 125 H 145 H 123 H Calcium Ferritin Total Bilirubin Alkaline Phosphatase Lactate Dehydrogenase Total Creatine Kinase CK-MB (CK-2) Rel Index Troponin T C-Reactive Protein Total Protein Albumin Prealbumin LDL Cholesterol Direct HDL Cholesterol Arterial Blood Glucose Arterial Blood Ionized Calcium Urine WBC (Auto) 04/07/20 04/08/20 04/08/20 23:22 05:40 11:29 WBC RBC Hgb Hct MCV MCH RDW Plt Count Lymph % (Auto) [place] % (Auto) Lymph # (Auto) [place] # (Auto) Seg Neutrophils % Seg Neuts % (Manual) Lymphocytes % (Manual) Monocytes % (Manual) Basophils % (Manual) Seg Neutrophils # Seg Neutrophils # Man Lymphocytes # (Manual) Monocytes # (Manual) Eosinophils # (Manual) Basophils # (Manual) PT INR D-Dimer ABG pH POC ABG pCO2 POC ABG pO2 ABG pO2 ABG HCO3 ABG O2 Saturation ABG Base Excess ABG Hemoglobin ABG Oxyhemoglobin ABG Potassium ABG Glucose Oxyhemoglobin Carboxyhemoglobin Sodium Potassium Chloride Carbon Dioxide BUN Creatinine Glucose POC Glucose 133 H 125 H 116 H Calcium Ferritin Total Bilirubin Alkaline Phosphatase Lactate Dehydrogenase Total Creatine Kinase CK-MB (CK-2) Rel Index Troponin T C-Reactive Protein Total Protein Albumin Prealbumin LDL Cholesterol Direct HDL Cholesterol Arterial Blood Glucose Arterial Blood Ionized Calcium Urine WBC (Auto) 04/08/20 04/09/20 04/09/20 17:43 05:47 12:22 WBC RBC Hgb Hct MCV MCH RDW Plt Count Lymph % (Auto) [place] % (Auto) Lymph # (Auto) [place] # (Auto) Seg Neutrophils % Seg Neuts % (Manual) Lymphocytes % (Manual) Monocytes % (Manual) Basophils % (Manual) Seg Neutrophils # Seg Neutrophils # Man Lymphocytes # (Manual) Monocytes # (Manual) Eosinophils # (Manual) Basophils # (Manual) PT INR D-Dimer ABG pH POC ABG pCO2 POC ABG pO2 ABG pO2 ABG HCO3 ABG O2 Saturation ABG Base Excess ABG Hemoglobin ABG Oxyhemoglobin ABG Potassium ABG Glucose Oxyhemoglobin Carboxyhemoglobin Sodium Potassium Chloride Carbon Dioxide BUN Creatinine Glucose POC Glucose 123 H 108 H 116 H Calcium Ferritin Total Bilirubin Alkaline Phosphatase Lactate Dehydrogenase Total Creatine Kinase CK-MB (CK-2) Rel Index Troponin T C-Reactive Protein Total Protein Albumin Prealbumin LDL Cholesterol Direct HDL Cholesterol Arterial Blood Glucose Arterial Blood Ionized Calcium Urine WBC (Auto) 04/09/20 04/09/20 04/10/20 17:24 23:52 06:10 WBC RBC Hgb Hct MCV MCH RDW Plt Count Lymph % (Auto) [place] % (Auto) Lymph # (Auto) [place] # (Auto) Seg Neutrophils % Seg Neuts % (Manual) Lymphocytes % (Manual) Monocytes % (Manual) Basophils % (Manual) Seg Neutrophils # Seg Neutrophils # Man Lymphocytes # (Manual) Monocytes # (Manual) Eosinophils # (Manual) Basophils # (Manual) PT INR D-Dimer ABG pH POC ABG pCO2 POC ABG pO2 ABG pO2 ABG HCO3 ABG O2 Saturation ABG Base Excess ABG Hemoglobin ABG Oxyhemoglobin ABG Potassium ABG Glucose Oxyhemoglobin Carboxyhemoglobin Sodium Potassium Chloride Carbon Dioxide BUN Creatinine Glucose POC Glucose 108 H 126 H 122 H Calcium Ferritin Total Bilirubin Alkaline Phosphatase Lactate Dehydrogenase Total Creatine Kinase CK-MB (CK-2) Rel Index Troponin T C-Reactive Protein Total Protein Albumin Prealbumin LDL Cholesterol Direct HDL Cholesterol Arterial Blood Glucose Arterial Blood Ionized Calcium Urine WBC (Auto) 04/10/20 04/10/20 04/10/20 11:27 18:11 23:24 WBC RBC Hgb Hct MCV MCH RDW Plt Count Lymph % (Auto) [place] % (Auto) Lymph # (Auto) [place] # (Auto) Seg Neutrophils % Seg Neuts % (Manual) Lymphocytes % (Manual) Monocytes % (Manual) Basophils % (Manual) Seg Neutrophils # Seg Neutrophils # Man Lymphocytes # (Manual) Monocytes # (Manual) Eosinophils # (Manual) Basophils # (Manual) PT INR D-Dimer ABG pH POC ABG pCO2 POC ABG pO2 ABG pO2 ABG HCO3 ABG O2 Saturation ABG Base Excess ABG Hemoglobin ABG Oxyhemoglobin ABG Potassium ABG Glucose Oxyhemoglobin Carboxyhemoglobin Sodium Potassium Chloride Carbon Dioxide BUN Creatinine Glucose POC Glucose 129 H 125 H 107 H Calcium Ferritin Total Bilirubin Alkaline Phosphatase Lactate Dehydrogenase Total Creatine Kinase CK-MB (CK-2) Rel Index Troponin T C-Reactive Protein Total Protein Albumin Prealbumin LDL Cholesterol Direct HDL Cholesterol Arterial Blood Glucose Arterial Blood Ionized Calcium Urine WBC (Auto) 04/11/20 04/11/20 04/11/20 05:28 11:46 23:49 WBC RBC Hgb Hct MCV MCH RDW Plt Count Lymph % (Auto) [place] % (Auto) Lymph # (Auto) [place] # (Auto) Seg Neutrophils % Seg Neuts % (Manual) Lymphocytes % (Manual) Monocytes % (Manual) Basophils % (Manual) Seg Neutrophils # Seg Neutrophils # Man Lymphocytes # (Manual) Monocytes # (Manual) Eosinophils # (Manual) Basophils # (Manual) PT INR D-Dimer ABG pH POC ABG pCO2 POC ABG pO2 ABG pO2 ABG HCO3 ABG O2 Saturation ABG Base Excess ABG Hemoglobin ABG Oxyhemoglobin ABG Potassium ABG Glucose Oxyhemoglobin Carboxyhemoglobin Sodium Potassium Chloride Carbon Dioxide BUN Creatinine Glucose POC Glucose 122 H 122 H 116 H Calcium Ferritin Total Bilirubin Alkaline Phosphatase Lactate Dehydrogenase Total Creatine Kinase CK-MB (CK-2) Rel Index Troponin T C-Reactive Protein Total Protein Albumin Prealbumin LDL Cholesterol Direct HDL Cholesterol Arterial Blood Glucose Arterial Blood Ionized Calcium Urine WBC (Auto) 04/12/20 04/12/20 04/12/20 09:07 09:07 11:39 WBC 13.1 H RBC 3.59 L Hgb 9.5 L Hct 29.8 L MCV 83 L MCH 26 L RDW 16.6 H Plt Count 591 H Lymph % (Auto) [place] % (Auto) Lymph # (Auto) [place] # (Auto) Seg Neutrophils % Seg Neuts % (Manual) 86.0 H Lymphocytes % (Manual) 7.0 L Monocytes % (Manual) Basophils % (Manual) Seg Neutrophils # Seg Neutrophils # Man 11.3 H Lymphocytes # (Manual) 0.9 L Monocytes # (Manual) Eosinophils # (Manual) Basophils # (Manual) PT INR D-Dimer ABG pH POC ABG pCO2 POC ABG pO2 ABG pO2 ABG HCO3 ABG O2 Saturation ABG Base Excess ABG Hemoglobin ABG Oxyhemoglobin ABG Potassium ABG Glucose Oxyhemoglobin Carboxyhemoglobin Sodium Potassium Chloride Carbon Dioxide 36 H BUN Creatinine < 0.2 L Glucose 132 H POC Glucose 136 H Calcium Ferritin Total Bilirubin Alkaline Phosphatase Lactate Dehydrogenase Total Creatine Kinase CK-MB (CK-2) Rel Index Troponin T C-Reactive Protein Total Protein Albumin 2.7 L Prealbumin LDL Cholesterol Direct HDL Cholesterol Arterial Blood Glucose Arterial Blood Ionized Calcium Urine WBC (Auto) 04/12/20 04/12/20 04/13/20 18:13 23:07 05:45 WBC RBC Hgb Hct MCV MCH RDW Plt Count Lymph % (Auto) [place] % (Auto) Lymph # (Auto) [place] # (Auto) Seg Neutrophils % Seg Neuts % (Manual) Lymphocytes % (Manual) Monocytes % (Manual) Basophils % (Manual) Seg Neutrophils # Seg Neutrophils # Man Lymphocytes # (Manual) Monocytes # (Manual) Eosinophils # (Manual) Basophils # (Manual) PT INR D-Dimer ABG pH POC ABG pCO2 POC ABG pO2 ABG pO2 ABG HCO3 ABG O2 Saturation ABG Base Excess ABG Hemoglobin ABG Oxyhemoglobin ABG Potassium ABG Glucose Oxyhemoglobin Carboxyhemoglobin Sodium Potassium Chloride Carbon Dioxide BUN Creatinine Glucose POC Glucose 107 H 106 H 125 H Calcium Ferritin Total Bilirubin Alkaline Phosphatase Lactate Dehydrogenase Total Creatine Kinase CK-MB (CK-2) Rel Index Troponin T C-Reactive Protein Total Protein Albumin Prealbumin LDL Cholesterol Direct HDL Cholesterol Arterial Blood Glucose Arterial Blood Ionized Calcium Urine WBC (Auto) 04/13/20 04/13/20 04/13/20 11:18 17:56 23:33 WBC RBC Hgb Hct MCV MCH RDW Plt Count Lymph % (Auto) [place] % (Auto) Lymph # (Auto) [place] # (Auto) Seg Neutrophils % Seg Neuts % (Manual) Lymphocytes % (Manual) Monocytes % (Manual) Basophils % (Manual) Seg Neutrophils # Seg Neutrophils # Man Lymphocytes # (Manual) Monocytes # (Manual) Eosinophils # (Manual) Basophils # (Manual) PT INR D-Dimer ABG pH POC ABG pCO2 POC ABG pO2 ABG pO2 ABG HCO3 ABG O2 Saturation ABG Base Excess ABG Hemoglobin ABG Oxyhemoglobin ABG Potassium ABG Glucose Oxyhemoglobin Carboxyhemoglobin Sodium Potassium Chloride Carbon Dioxide BUN Creatinine Glucose POC Glucose 133 H 110 H 114 H Calcium Ferritin Total Bilirubin Alkaline Phosphatase Lactate Dehydrogenase Total Creatine Kinase CK-MB (CK-2) Rel Index Troponin T C-Reactive Protein Total Protein Albumin Prealbumin LDL Cholesterol Direct HDL Cholesterol Arterial Blood Glucose Arterial Blood Ionized Calcium Urine WBC (Auto) 04/14/20 04/14/20 04/14/20 05:58 11:45 17:48 WBC RBC Hgb Hct MCV MCH RDW Plt Count Lymph % (Auto) [place] % (Auto) Lymph # (Auto) [place] # (Auto) Seg Neutrophils % Seg Neuts % (Manual) Lymphocytes % (Manual) Monocytes % (Manual) Basophils % (Manual) Seg Neutrophils # Seg Neutrophils # Man Lymphocytes # (Manual) Monocytes # (Manual) Eosinophils # (Manual) Basophils # (Manual) PT INR D-Dimer ABG pH POC ABG pCO2 POC ABG pO2 ABG pO2 ABG HCO3 ABG O2 Saturation ABG Base Excess ABG Hemoglobin ABG Oxyhemoglobin ABG Potassium ABG Glucose Oxyhemoglobin Carboxyhemoglobin Sodium Potassium Chloride Carbon Dioxide BUN Creatinine Glucose POC Glucose 115 H 122 H 124 H Calcium Ferritin Total Bilirubin Alkaline Phosphatase Lactate Dehydrogenase Total Creatine Kinase CK-MB (CK-2) Rel Index Troponin T C-Reactive Protein Total Protein Albumin Prealbumin LDL Cholesterol Direct HDL Cholesterol Arterial Blood Glucose Arterial Blood Ionized Calcium Urine WBC (Auto) 04/15/20 04/15/20 04/15/20 00:11 05:38 11:31 WBC RBC Hgb Hct MCV MCH RDW Plt Count Lymph % (Auto) [place] % (Auto) Lymph # (Auto) [place] # (Auto) Seg Neutrophils % Seg Neuts % (Manual) Lymphocytes % (Manual) Monocytes % (Manual) Basophils % (Manual) Seg Neutrophils # Seg Neutrophils # Man Lymphocytes # (Manual) Monocytes # (Manual) Eosinophils # (Manual) Basophils # (Manual) PT INR D-Dimer ABG pH POC ABG pCO2 POC ABG pO2 ABG pO2 ABG HCO3 ABG O2 Saturation ABG Base Excess ABG Hemoglobin ABG Oxyhemoglobin ABG Potassium ABG Glucose Oxyhemoglobin Carboxyhemoglobin Sodium Potassium Chloride Carbon Dioxide BUN Creatinine Glucose POC Glucose 120 H 109 H 123 H Calcium Ferritin Total Bilirubin Alkaline Phosphatase Lactate Dehydrogenase Total Creatine Kinase CK-MB (CK-2) Rel Index Troponin T C-Reactive Protein Total Protein Albumin Prealbumin LDL Cholesterol Direct HDL Cholesterol Arterial Blood Glucose Arterial Blood Ionized Calcium Urine WBC (Auto) 04/15/20 04/16/20 04/16/20 17:35 06:00 11:29 WBC RBC Hgb Hct MCV MCH RDW Plt Count Lymph % (Auto) [place] % (Auto) Lymph # (Auto) [place] # (Auto) Seg Neutrophils % Seg Neuts % (Manual) Lymphocytes % (Manual) Monocytes % (Manual) Basophils % (Manual) Seg Neutrophils # Seg Neutrophils # Man Lymphocytes # (Manual) Monocytes # (Manual) Eosinophils # (Manual) Basophils # (Manual) PT INR D-Dimer ABG pH POC ABG pCO2 POC ABG pO2 ABG pO2 ABG HCO3 ABG O2 Saturation ABG Base Excess ABG Hemoglobin ABG Oxyhemoglobin ABG Potassium ABG Glucose Oxyhemoglobin Carboxyhemoglobin Sodium Potassium Chloride Carbon Dioxide BUN Creatinine Glucose POC Glucose 111 H 142 H 108 H Calcium Ferritin Total Bilirubin Alkaline Phosphatase Lactate Dehydrogenase Total Creatine Kinase CK-MB (CK-2) Rel Index Troponin T C-Reactive Protein Total Protein Albumin Prealbumin LDL Cholesterol Direct HDL Cholesterol Arterial Blood Glucose Arterial Blood Ionized Calcium Urine WBC (Auto) 04/17/20 04/17/20 04/17/20 05:09 06:53 06:53 WBC 14.2 H RBC Hgb 10.1 L Hct 31.5 L MCV MCH 27 L RDW 17.2 H Plt Count 643 H Lymph % (Auto) [place] % (Auto) Lymph # (Auto) [place] # (Auto) Seg Neutrophils % Seg Neuts % (Manual) Lymphocytes % (Manual) Monocytes % (Manual) Basophils % (Manual) Seg Neutrophils # Seg Neutrophils # Man Lymphocytes # (Manual) Monocytes # (Manual) Eosinophils # (Manual) Basophils # (Manual) PT INR D-Dimer ABG pH POC ABG pCO2 POC ABG pO2 ABG pO2 ABG HCO3 ABG O2 Saturation ABG Base Excess ABG Hemoglobin ABG Oxyhemoglobin ABG Potassium ABG Glucose Oxyhemoglobin Carboxyhemoglobin Sodium Potassium Chloride 97.7 L Carbon Dioxide 38 H BUN Creatinine < 0.2 L Glucose 126 H POC Glucose 131 H Calcium Ferritin Total Bilirubin Alkaline Phosphatase Lactate Dehydrogenase Total Creatine Kinase CK-MB (CK-2) Rel Index Troponin T C-Reactive Protein Total Protein Albumin Prealbumin LDL Cholesterol Direct HDL Cholesterol Arterial Blood Glucose Arterial Blood Ionized Calcium Urine WBC (Auto) 04/17/20 04/18/20 04/18/20 11:21 00:23 04:01 WBC 15.3 H RBC Hgb 10.1 L Hct 31.9 L MCV 82 L MCH 26 L RDW 17.2 H Plt Count 665 H Lymph % (Auto) 12.9 L [place] % (Auto) Lymph # (Auto) [place] # (Auto) 1.1 H Seg Neutrophils % 78.0 H Seg Neuts % (Manual) Lymphocytes % (Manual) Monocytes % (Manual) Basophils % (Manual) Seg Neutrophils # 11.9 H Seg Neutrophils # Man Lymphocytes # (Manual) Monocytes # (Manual) Eosinophils # (Manual) Basophils # (Manual) PT INR D-Dimer ABG pH POC ABG pCO2 POC ABG pO2 ABG pO2 ABG HCO3 ABG O2 Saturation ABG Base Excess ABG Hemoglobin ABG Oxyhemoglobin ABG Potassium ABG Glucose Oxyhemoglobin Carboxyhemoglobin Sodium Potassium Chloride Carbon Dioxide BUN Creatinine Glucose POC Glucose 140 H 125 H Calcium Ferritin Total Bilirubin Alkaline Phosphatase Lactate Dehydrogenase Total Creatine Kinase CK-MB (CK-2) Rel Index Troponin T C-Reactive Protein Total Protein Albumin Prealbumin LDL Cholesterol Direct HDL Cholesterol Arterial Blood Glucose Arterial Blood Ionized Calcium Urine WBC (Auto) 04/18/20 04/18/20 04/18/20 04:01 11:29 17:30 WBC RBC Hgb Hct MCV MCH RDW Plt Count Lymph % (Auto) [place] % (Auto) Lymph # (Auto) [place] # (Auto) Seg Neutrophils % Seg Neuts % (Manual) Lymphocytes % (Manual) Monocytes % (Manual) Basophils % (Manual) Seg Neutrophils # Seg Neutrophils # Man Lymphocytes # (Manual) Monocytes # (Manual) Eosinophils # (Manual) Basophils # (Manual) PT INR D-Dimer ABG pH POC ABG pCO2 POC ABG pO2 ABG pO2 ABG HCO3 ABG O2 Saturation ABG Base Excess ABG Hemoglobin ABG Oxyhemoglobin ABG Potassium ABG Glucose Oxyhemoglobin Carboxyhemoglobin Sodium Potassium Chloride 97.0 L Carbon Dioxide 38 H BUN Creatinine < 0.2 L Glucose 117 H POC Glucose 136 H 107 H Calcium Ferritin Total Bilirubin Alkaline Phosphatase Lactate Dehydrogenase Total Creatine Kinase CK-MB (CK-2) Rel Index Troponin T C-Reactive Protein Total Protein Albumin Prealbumin LDL Cholesterol Direct HDL Cholesterol Arterial Blood Glucose Arterial Blood Ionized Calcium Urine WBC (Auto) 04/18/20 04/19/20 04/19/20 23:19 06:51 06:51 WBC 12.2 H RBC Hgb 9.8 L Hct 31.1 L MCV 82 L MCH 26 L RDW 17.2 H Plt Count 549 H Lymph % (Auto) 6.5 L [place] % (Auto) Lymph # (Auto) 0.8 L [place] # (Auto) Seg Neutrophils % 86.7 H Seg Neuts % (Manual) Lymphocytes % (Manual) Monocytes % (Manual) Basophils % (Manual) Seg Neutrophils # 10.6 H Seg Neutrophils # Man Lymphocytes # (Manual) Monocytes # (Manual) Eosinophils # (Manual) Basophils # (Manual) PT INR D-Dimer ABG pH POC ABG pCO2 POC ABG pO2 ABG pO2 ABG HCO3 ABG O2 Saturation ABG Base Excess ABG Hemoglobin ABG Oxyhemoglobin ABG Potassium ABG Glucose Oxyhemoglobin Carboxyhemoglobin Sodium Potassium Chloride 97.8 L Carbon Dioxide 38 H BUN Creatinine < 0.2 L Glucose 123 H POC Glucose 127 H Calcium Ferritin Total Bilirubin Alkaline Phosphatase Lactate Dehydrogenase Total Creatine Kinase CK-MB (CK-2) Rel Index Troponin T C-Reactive Protein Total Protein Albumin Prealbumin LDL Cholesterol Direct HDL Cholesterol Arterial Blood Glucose Arterial Blood Ionized Calcium Urine WBC (Auto) 04/19/20 04/19/20 04/20/20 13:41 18:33 05:56 WBC RBC Hgb Hct MCV MCH RDW Plt Count Lymph % (Auto) [place] % (Auto) Lymph # (Auto) [place] # (Auto) Seg Neutrophils % Seg Neuts % (Manual) Lymphocytes % (Manual) Monocytes % (Manual) Basophils % (Manual) Seg Neutrophils # Seg Neutrophils # Man Lymphocytes # (Manual) Monocytes # (Manual) Eosinophils # (Manual) Basophils # (Manual) PT INR D-Dimer ABG pH POC ABG pCO2 POC ABG pO2 ABG pO2 ABG HCO3 ABG O2 Saturation ABG Base Excess ABG Hemoglobin ABG Oxyhemoglobin ABG Potassium ABG Glucose Oxyhemoglobin Carboxyhemoglobin Sodium Potassium Chloride Carbon Dioxide BUN Creatinine Glucose POC Glucose 116 H 124 H 130 H Calcium Ferritin Total Bilirubin Alkaline Phosphatase Lactate Dehydrogenase Total Creatine Kinase CK-MB (CK-2) Rel Index Troponin T C-Reactive Protein Total Protein Albumin Prealbumin LDL Cholesterol Direct HDL Cholesterol Arterial Blood Glucose Arterial Blood Ionized Calcium Urine WBC (Auto) 04/20/20 04/20/20 04/20/20 06:28 06:28 11:46 WBC RBC Hgb 10.2 L Hct 31.5 L MCV 82 L MCH 27 L RDW 17.1 H Plt Count 546 H Lymph % (Auto) 10.0 L [place] % (Auto) 9.8 H Lymph # (Auto) 1.1 L [place] # (Auto) 1.1 H Seg Neutrophils % 78.4 H Seg Neuts % (Manual) Lymphocytes % (Manual) Monocytes % (Manual) Basophils % (Manual) Seg Neutrophils # 8.5 H Seg Neutrophils # Man Lymphocytes # (Manual) Monocytes # (Manual) Eosinophils # (Manual) Basophils # (Manual) PT INR D-Dimer ABG pH POC ABG pCO2 POC ABG pO2 ABG pO2 ABG HCO3 ABG O2 Saturation ABG Base Excess ABG Hemoglobin ABG Oxyhemoglobin ABG Potassium ABG Glucose Oxyhemoglobin Carboxyhemoglobin Sodium Potassium Chloride 97.0 L Carbon Dioxide 38 H BUN Creatinine < 0.2 L Glucose 138 H POC Glucose 130 H Calcium Ferritin Total Bilirubin Alkaline Phosphatase Lactate Dehydrogenase Total Creatine Kinase CK-MB (CK-2) Rel Index Troponin T C-Reactive Protein Total Protein Albumin Prealbumin LDL Cholesterol Direct HDL Cholesterol Arterial Blood Glucose Arterial Blood Ionized Calcium Urine WBC (Auto) 04/20/20 04/21/20 04/21/20 23:31 05:55 05:55 WBC RBC Hgb 10.0 L Hct 31.1 L MCV 82 L MCH 26 L RDW 17.0 H Plt Count 535 H Lymph % (Auto) [place] % (Auto) 9.2 H Lymph # (Auto) 1.1 L [place] # (Auto) Seg Neutrophils % 75.4 H Seg Neuts % (Manual) Lymphocytes % (Manual) Monocytes % (Manual) Basophils % (Manual) Seg Neutrophils # Seg Neutrophils # Man Lymphocytes # (Manual) Monocytes # (Manual) Eosinophils # (Manual) Basophils # (Manual) PT INR D-Dimer ABG pH POC ABG pCO2 POC ABG pO2 ABG pO2 ABG HCO3 ABG O2 Saturation ABG Base Excess ABG Hemoglobin ABG Oxyhemoglobin ABG Potassium ABG Glucose Oxyhemoglobin Carboxyhemoglobin Sodium Potassium Chloride 95.0 L Carbon Dioxide 34 H BUN Creatinine < 0.2 L Glucose 125 H POC Glucose 116 H Calcium Ferritin Total Bilirubin Alkaline Phosphatase Lactate Dehydrogenase Total Creatine Kinase CK-MB (CK-2) Rel Index Troponin T C-Reactive Protein Total Protein Albumin Prealbumin LDL Cholesterol Direct HDL Cholesterol Arterial Blood Glucose Arterial Blood Ionized Calcium Urine WBC (Auto) 04/22/20 04/22/20 04/22/20 00:01 07:45 07:45 WBC RBC Hgb 10.0 L Hct 30.7 L MCV 81 L MCH 27 L RDW 17.1 H Plt Count 490 H Lymph % (Auto) [place] % (Auto) Lymph # (Auto) [place] # (Auto) Seg Neutrophils % Seg Neuts % (Manual) 75.0 H Lymphocytes % (Manual) 11.0 L Monocytes % (Manual) 9.0 H Basophils % (Manual) Seg Neutrophils # Seg Neutrophils # Man Lymphocytes # (Manual) 0.8 L Monocytes # (Manual) Eosinophils # (Manual) Basophils # (Manual) PT INR D-Dimer ABG pH POC ABG pCO2 POC ABG pO2 ABG pO2 ABG HCO3 ABG O2 Saturation ABG Base Excess ABG Hemoglobin ABG Oxyhemoglobin ABG Potassium ABG Glucose Oxyhemoglobin Carboxyhemoglobin Sodium Potassium Chloride 96.3 L Carbon Dioxide 40 H BUN Creatinine < 0.2 L Glucose 109 H POC Glucose 110 H Calcium Ferritin Total Bilirubin Alkaline Phosphatase Lactate Dehydrogenase Total Creatine Kinase CK-MB (CK-2) Rel Index Troponin T C-Reactive Protein Total Protein Albumin Prealbumin LDL Cholesterol Direct HDL Cholesterol Arterial Blood Glucose Arterial Blood Ionized Calcium Urine WBC (Auto) 04/23/20 04/23/20 04/23/20 04:28 04:28 04:28 WBC RBC 3.64 L Hgb 9.7 L Hct 29.4 L MCV 81 L MCH 27 L RDW 17.2 H Plt Count 527 H Lymph % (Auto) [place] % (Auto) 8.9 H Lymph # (Auto) [place] # (Auto) Seg Neutrophils % Seg Neuts % (Manual) Lymphocytes % (Manual) Monocytes % (Manual) Basophils % (Manual) Seg Neutrophils # Seg Neutrophils # Man Lymphocytes # (Manual) Monocytes # (Manual) Eosinophils # (Manual) Basophils # (Manual) PT INR D-Dimer ABG pH POC ABG pCO2 POC ABG pO2 ABG pO2 ABG HCO3 ABG O2 Saturation ABG Base Excess ABG Hemoglobin ABG Oxyhemoglobin ABG Potassium ABG Glucose Oxyhemoglobin Carboxyhemoglobin Sodium Potassium Chloride 96.4 L Carbon Dioxide 32 H D BUN Creatinine < 0.2 L Glucose 134 H POC Glucose Calcium Ferritin Total Bilirubin Alkaline Phosphatase Lactate Dehydrogenase Total Creatine Kinase CK-MB (CK-2) Rel Index Troponin T 0.151 H* C-Reactive Protein Total Protein Albumin Prealbumin LDL Cholesterol Direct HDL Cholesterol 29 L Arterial Blood Glucose Arterial Blood Ionized Calcium Urine WBC (Auto) 04/23/20 04/23/20 04/24/20 06:03 23:41 05:28 WBC RBC 3.56 L Hgb 9.5 L Hct 28.9 L MCV 81 L MCH 27 L RDW 17.4 H Plt Count 462 H Lymph % (Auto) [place] % (Auto) Lymph # (Auto) [place] # (Auto) Seg Neutrophils % Seg Neuts % (Manual) 80.0 H Lymphocytes % (Manual) Monocytes % (Manual) Basophils % (Manual) Seg Neutrophils # Seg Neutrophils # Man Lymphocytes # (Manual) Monocytes # (Manual) Eosinophils # (Manual) Basophils # (Manual) PT INR D-Dimer ABG pH POC ABG pCO2 POC ABG pO2 ABG pO2 ABG HCO3 ABG O2 Saturation ABG Base Excess ABG Hemoglobin ABG Oxyhemoglobin ABG Potassium ABG Glucose Oxyhemoglobin Carboxyhemoglobin Sodium Potassium Chloride Carbon Dioxide BUN Creatinine Glucose POC Glucose 132 H 117 H Calcium Ferritin Total Bilirubin Alkaline Phosphatase Lactate Dehydrogenase Total Creatine Kinase CK-MB (CK-2) Rel Index Troponin T C-Reactive Protein Total Protein Albumin Prealbumin LDL Cholesterol Direct HDL Cholesterol Arterial Blood Glucose Arterial Blood Ionized Calcium Urine WBC (Auto) 04/24/20 04/24/20 04/24/20 05:28 05:28 05:33 WBC RBC Hgb Hct MCV MCH RDW Plt Count Lymph % (Auto) [place] % (Auto) Lymph # (Auto) [place] # (Auto) Seg Neutrophils % Seg Neuts % (Manual) Lymphocytes % (Manual) Monocytes % (Manual) Basophils % (Manual) Seg Neutrophils # Seg Neutrophils # Man Lymphocytes # (Manual) Monocytes # (Manual) Eosinophils # (Manual) Basophils # (Manual) PT INR D-Dimer ABG pH POC ABG pCO2 POC ABG pO2 ABG pO2 ABG HCO3 ABG O2 Saturation ABG Base Excess ABG Hemoglobin ABG Oxyhemoglobin ABG Potassium ABG Glucose Oxyhemoglobin Carboxyhemoglobin Sodium Potassium Chloride 96.1 L Carbon Dioxide 40 H D BUN Creatinine < 0.2 L Glucose 115 H POC Glucose 109 H Calcium Ferritin Total Bilirubin Alkaline Phosphatase Lactate Dehydrogenase Total Creatine Kinase CK-MB (CK-2) Rel Index Troponin T 0.181 H* C-Reactive Protein Total Protein Albumin Prealbumin LDL Cholesterol Direct HDL Cholesterol Arterial Blood Glucose Arterial Blood Ionized Calcium Urine WBC (Auto) 04/24/20 04/24/20 04/25/20 11:17 18:23 00:12 WBC RBC Hgb Hct MCV MCH RDW Plt Count Lymph % (Auto) [place] % (Auto) Lymph # (Auto) [place] # (Auto) Seg Neutrophils % Seg Neuts % (Manual) Lymphocytes % (Manual) Monocytes % (Manual) Basophils % (Manual) Seg Neutrophils # Seg Neutrophils # Man Lymphocytes # (Manual) Monocytes # (Manual) Eosinophils # (Manual) Basophils # (Manual) PT INR D-Dimer ABG pH POC ABG pCO2 POC ABG pO2 ABG pO2 ABG HCO3 ABG O2 Saturation ABG Base Excess ABG Hemoglobin ABG Oxyhemoglobin ABG Potassium ABG Glucose Oxyhemoglobin Carboxyhemoglobin Sodium Potassium Chloride Carbon Dioxide BUN Creatinine Glucose POC Glucose 117 H 109 H 113 H Calcium Ferritin Total Bilirubin Alkaline Phosphatase Lactate Dehydrogenase Total Creatine Kinase CK-MB (CK-2) Rel Index Troponin T C-Reactive Protein Total Protein Albumin Prealbumin LDL Cholesterol Direct HDL Cholesterol Arterial Blood Glucose Arterial Blood Ionized Calcium Urine WBC (Auto) 04/25/20 04/25/20 04/25/20 06:34 06:34 11:28 WBC 11.7 H RBC Hgb 10.0 L Hct 31.7 L MCV 82 L MCH 26 L RDW 17.5 H Plt Count 564 H Lymph % (Auto) [place] % (Auto) Lymph # (Auto) [place] # (Auto) Seg Neutrophils % Seg Neuts % (Manual) 78.0 H Lymphocytes % (Manual) 10.0 L Monocytes % (Manual) 9.0 H Basophils % (Manual) Seg Neutrophils # Seg Neutrophils # Man 9.1 H Lymphocytes # (Manual) Monocytes # (Manual) 1.1 H Eosinophils # (Manual) Basophils # (Manual) PT INR D-Dimer ABG pH POC ABG pCO2 POC ABG pO2 ABG pO2 ABG HCO3 ABG O2 Saturation ABG Base Excess ABG Hemoglobin ABG Oxyhemoglobin ABG Potassium ABG Glucose Oxyhemoglobin Carboxyhemoglobin Sodium Potassium Chloride Carbon Dioxide 39 H BUN Creatinine < 0.2 L Glucose 103 H POC Glucose 112 H Calcium Ferritin Total Bilirubin Alkaline Phosphatase Lactate Dehydrogenase Total Creatine Kinase CK-MB (CK-2) Rel Index Troponin T C-Reactive Protein Total Protein Albumin Prealbumin LDL Cholesterol Direct HDL Cholesterol Arterial Blood Glucose Arterial Blood Ionized Calcium Urine WBC (Auto) 04/27/20 11:48 WBC RBC Hgb Hct MCV MCH RDW Plt Count Lymph % (Auto) [place] % (Auto) Lymph # (Auto) [place] # (Auto) Seg Neutrophils % Seg Neuts % (Manual) Lymphocytes % (Manual) Monocytes % (Manual) Basophils % (Manual) Seg Neutrophils # Seg Neutrophils # Man Lymphocytes # (Manual) Monocytes # (Manual) Eosinophils # (Manual) Basophils # (Manual) PT INR D-Dimer ABG pH POC ABG pCO2 POC ABG pO2 ABG pO2 ABG HCO3 ABG O2 Saturation ABG Base Excess ABG Hemoglobin ABG Oxyhemoglobin ABG Potassium ABG Glucose Oxyhemoglobin Carboxyhemoglobin Sodium Potassium Chloride Carbon Dioxide BUN Creatinine Glucose POC Glucose 124 H Calcium Ferritin Total Bilirubin Alkaline Phosphatase Lactate Dehydrogenase Total Creatine Kinase CK-MB (CK-2) Rel Index Troponin T C-Reactive Protein Total Protein Albumin Prealbumin LDL Cholesterol Direct HDL Cholesterol Arterial Blood Glucose Arterial Blood Ionized Calcium Urine WBC (Auto) Chest x-ray: pending Allied health notes reviewed: nursing
[2020-04-27] MEDS: ENOXAPARIN 40 MG/0.4 ML INJ SUB-Q SCH (22:32)
[2020-04-27] MEDS: ZOLPIDEM 5 MG TAB PO PRN (22:34)
[2020-04-27] MEDS: SENNOSIDES 8.6 MG TAB PO SCH (22:34)
[2020-04-28] MEDS: MORPHINE 2 MG/1 ML INJ IV PRN ×4 (02:54→21:36)
[2020-04-28] MEDS: GLYCOPYRROLATE 1 MG TAB PO SCH ×3 (09:31→22:00)
[2020-04-28] MEDS: PREGABALIN 75 MG CAP PO SCH ×2 (09:31→21:35)
[2020-04-28] MEDS: LIDOCAINE 5% 1 EACH PATCH TD SCH (09:31)
[2020-04-28] MEDS: BACLOFEN 10 MG TAB PO SCH ×2 (09:32→21:35)
[2020-04-28] MEDS: METOPROLOL TARTRATE 25 MG TAB PO SCH ×2 (09:32→21:35)
[2020-04-28] MEDS: DOCUSATE SODIUM 100 MG/10 ML ORAL LIQD FEEDTUBE SCH ×2 (09:32→21:35)
[2020-04-28] MEDS: SODIUM HYPOCHLORITE, DAKIN'S 1/2 STRENGTH (0.25%) 473 ML TOPICAL SOLN TP SCH (09:33)
[2020-04-28] MEDS: ASPIRIN EC 81 MG TAB PO SCH (09:33)
[2020-04-28] MEDS: TAMSULOSIN 0.4 MG CAP PO SCH (09:33)
[2020-04-28] MEDS: LANSOPRAZOLE 30 MG SOLUTAB FEEDTUBE SCH (09:33)
[2020-04-28] MEDS: traMADol 50 MG TAB PO PRN (10:35)
--- NOTE | 2020-04-28 11:16 | Progress Note ---
Assessment and Plan Mildly elevated troponin likely c/w type 2 nstemi (was elevated similarly ~ 1 month ago) No new ecg changes on 04/24, repeat today TTE from 02/25 re-reviewed Pt denies any recent cp Agree w asa Would consider stress test when pt is more clinically stable and prior to dc. - Patient Problems (1) Elevated d-dimer Current Visit: Yes Status: Acute (2) Elevated troponin Current Visit: Yes Status: Acute (3) NSTEMI (non-ST elevated myocardial infarction) Current Visit: Yes Status: Acute (4) Respiratory failure Current Visit: Yes Status: Acute (5) Sepsis Current Visit: Yes Status: Acute (6) Severe protein-calorie malnutrition Current Visit: Yes Status: Acute (7) Toxic metabolic encephalopathy Current Visit: Yes Status: Acute (8) ALS (amyotrophic lateral sclerosis) Current Visit: Yes Status: Chronic (9) ETOH abuse Current Visit: Yes Status: Chronic Subjective Date of service: 04/28/20 Principal diagnosis: Ac on Ch Hypercapnic & hypoxemic Resp Failure; Severe Sepsis; Jamar PNA; ALS Interval history: seen in icu, discussed w/ rn no complaints no cp or sob Objective Vital Signs Temp Pulse Pulse Resp BP Pulse Ox Pulse Ox 04/28/20 09:32 106 H 105/70 04/28/20 07:33 94 H 19 92/64 100 04/28/20 07:30 93 H 92/64 100 04/28/20 06:00 100 H 18 89/60 99 04/28/20 05:47 100 04/28/20 05:00 100 H 21 109/66 100 04/28/20 04:49 96 H 104/71 100 04/28/20 04:00 98.2 F 101 H 101 H 14 104/71 98 04/28/20 03:00 102 H 18 109/77 99 04/28/20 02:54 13 04/28/20 02:00 97 H 12 105/70 98 04/28/20 01:22 102 H 96/67 99 04/28/20 01:00 99 H 19 96/67 99 04/28/20 00:00 98.6 F 98 H 99 H 22 104/69 99 04/27/20 23:00 100 H 13 103/70 98 04/27/20 22:53 15 04/27/20 22:35 24 12/31/20 22:33 108 H 110/73 12/31/20 22:00 111 H 14 110/73 99 04/27/20 21:20 108 H 99/68 99 04/27/20 21:00 108 H 19 99/68 99 04/27/20 20:00 99.2 F 110 H 107 H 16 108/72 100 04/27/20 19:00 106 H 22 103/70 98 04/27/20 18:19 110 H 22 107/71 99 04/27/20 18:00 110 H 17 107/71 99 04/27/20 17:10 98 04/27/20 17:07 107 H 103/69 98 04/27/20 17:00 104 H 13 103/69 98 04/27/20 16:00 99.7 F H 101 H 13 111/67 98 04/27/20 15:00 105 H 17 104/69 98 04/27/20 14:00 109 H 20 105/71 98 04/27/20 13:15 108 H 22 107/66 98 04/27/20 13:00 101 H 21 107/66 100 04/27/20 12:00 99.0 F 101 H 18 101/68 97 - Physical Examination General: No Apparent Distress HEENT: Positive: Normocephaly Neck: Positive: neck supple. Negative: JVD/HJR Neuro: Positive: Other (unable to assess) Abdomen: Positive: Soft, Active Bowel Sounds Skin: Positive: Wound. Negative: Rash Musculoskeletal: No Fluid Collection Extremities: Present: lower extr. pulses. Absent: edema - Imaging and Cardiology EKG: report reviewed, image reviewed Echo: report reviewed (02/26/2020 - EF 50-55%; impaired LV relaxation; no pericardial effusion) - EKG Sinus rhythms and dysrhythmias: sinus tachycardia Repolarization changes or abnormalities: nonspecific abnormality, ST segment, and/or T wave - Allied health notes Allied health notes reviewed: nursing
--- NOTE | 2020-04-28 14:22 | Progress Note ---
Subjective Date of service: 04/28/20 Principal diagnosis: Ac on Ch Hypercapnic & hypoxemic Resp Failure; Severe Sepsis; Jamar PNA; ALS Interval history: Assessment and plan: --Acute hypoxic hypercapnic respiratory failure; S/p tracheostomy on ventilatory support etiology secondary to sepsis, ALS, multifocal pneumonia (Covid negative). Pulmonary following --Constipation; Patient already received Dulcolax suppository and Colace Received milk of magnesia, with relief --History of ALS - Stable --Elevated D-dimers; imaging studies negative for PE and DVT --Bilateral pneumonia; probably community-acquired Completed the treatment, continue supportive care --Sepsis secondary to pneumonia; completed the treatment resolved --Elevated troponin Cardiology to revaluate his chest pain and elevated troponin Started him on low dose aspirin for now --Febrile illness; resolved ,secondary to pneumonia Complete antibiotics , resolved --DVT prophylaxis; Lovenox. 02/25/2020. CTA of the chest reveals no PE but does illustrate the bilateral pneumonia. Doppler ultrasound also negative for DVT. Blood cultures are pending. Await COVID-19 testing. Patient currently requiring BiPAP IPAP 24/EPAP 6 with FiO2 of 25%. Continue O2 and BiPAP as clinically indicated. ID and pulmonary consulted. 02/26/2020. Blood cultures are negative x48 hours and Covid testing negative as well. Continue antibiotics per ID recommendations for community-acquired bilateral pneumonia. Cardiology consultation for elevated troponin. Check echocardiogram. 02/27/2020. Events of yesterday noted with asystole following V. fib arrest. Patient currently on AC mode rate 20, tidal volume 400, FiO2 50% and a PEEP of 6. Follow-up echocardiogram for elevated troponin. Cardiology suspects NSTEMI Type 2 in the setting of acute resp failure. Chest CTA and BLE Dopplers neg. we will discontinue Decadron given the Covid PCR is negative. 02/28/2020. I spoke with the sister Felisa Eli who is the power of claims attorney regarding advanced directives and she instructed me that she would like to continue with aggressive care at this time. I informed her of the guarded prognosis and high mortality/morbidity and she voiced understanding. Patient currently with AC mode ventilation rate 18, tidal volume 400, FiO2 40% and a PEEP of 6. Continue antibiotics for pneumonia. ID previously consulted. Also consult neurology with regards to ALS. 02/29/2020; patient is intubated and on CPAP patient is alert and oriented. Patient has ALS. Dr. Álvarez spoke with his sister and she wants aggressive care. Continue antibiotics for pneumonia. Neurology consulted for ALS. Prognosis poor 03/01/2020; patient is intubated and on CPAP, patient is alert and oriented. I spoke with his 2 sisters about the management plan. 03/02/2020; patient is intubated and on CPAP. Patient was alert and oriented. I spoke with Dr. mohr and he thinks patient may need mechanical ventilation, likely his disease progressed. Dr. Flowers did debridement this morning. 03/03/2020; patient is intubated and on CPAP, patient was on trilogy and BiPAP at home. Patient has ALS. on spontaneous breathing trial. Patient is alert and oriented but quadriplegic. Patient has severe bilateral pneumonia and is on cefepime and Vanco, ID is following. Patient has sacral decubitus ulcer and debridement was done by Dr. Flowers and there is no osteomyelitis. 03/05. Patient still on broad-spectrum antibiotics. Status post sacral decubitus ulcer debridements-no osteomyelitis. Patient is on AC 25/400/30% PEEP 5. No blood gas results today. 03/06. Plan for tracheostomy by surgery. Still remains intubated. Labs reviewed-sodium 150. Started on free water 200 every 8hr. trend sodium. 03/07: s/p trach placement today, patient placed back on mechanical ventilation with trach. Plan to resume tube feeding with NG tube. Continue to monitor vitals, monitor BMP. 03/08: Patient noted to have distended abdomen with low urinary output. Obtain bladder scan rule out urine retention, UA and urine culture, continue to follow clinically. 03/09: Patient noted to have low blood pressure with SBP as low as 70s. Ordered for 500 mils normal saline bolus. CT abdomen showed bladder outlet obstruction, urology consulted. 03/10: placed on drake by urology o/n, improved urine outpt. cont to monitor BM P. resuded TF - cont free water with TF. wean off from vent as tolerated. 03/11: Vitals stable. cont TF, wean off from vent as tolerated. start on 1/2 NS for hypernatremia - follow BMP 03/12: wean off vent as tolerated, plan for speech eval, cont Tf for now, cont iv fluid 03/13: unable to wean off from vent, unable to do speech therapy eval. will need PEG tube, cont supportive care for now, cont NG tube feeding 03/14: consulted GI for PEg placemnet, cont supportive care. remains on vent at night 03/15: Discussed with GI, plan for PEG tube placement possibly tomorrow. Continue supportive care and wean off from vent as tolerated. Hold Lovenox dose tonight. 03/16: family didnot consent for PEG placement yesterday. I spoke with the daughter today and she is now agreeable for PEG tube. I explained the necessity of the procedure with RN to the patient also and he nodded started on tube feeding, for the procedure. will cont supportive care. planned for PEG tube placement tomorrow. 03/17: s/p PEG placement today, patient tolerated well, cont supportive care 03/18: Started on tube feeding with new PEG tube, continue to wean off vent as tolerated 03/19: cont to monitor with supportive care, wean off vent as tolerated 03/20: Continue to wean off vent as tolerated -but failing weaning trial. Still requiring vent support at night. Currently on PEG tube for tube feed. 03/21. Pt with PSV trials with FiO@ 30%, PEEP 6, PS 10. Currently on PEG tube for tube feed. 03/22/2020. Continue PSV trials per pulmonary. Continue bronchodilators. Patient tolerating tube feedings. Continue Robinul for secretion control. 03/23/2020. Continue PSV trials per pulmonary. Continue bronchodilators. Continue Scopolamine and Robinul for secretion control. Trach care/airway man agement. Mobility protocols for pressure ulcer prophylaxis. LTAC evaluation per case management 03/24/2020. Continue PSV trials with current settings pressure support 10, PEEP 6 and FiO2 30%. Continue bronchodilators/nebulizer. Continue Scopolamine and Robinul for secretion control. Trach care/airway management. Mobility protocols for pressure ulcer prophylaxis. LTAC evaluation per case management 03/25/2020. Pulmonary to proceed with T-piece trials today. Continue bronchodilators/nebulizer. Continue Scopolamine and Robinul for secretion control. Trach care/airway management. Mobility protocols for pressure ulcer prophylaxis. 03/26/2020. Patient currently with PSV 10/6 at FiO2 of 30%. Continue weaning and T-piece trials per protocol. Continue bronchodilators/nebulizer. Continue Scopolamine and Robinul for secretion control. Trach care/airway management. Mobility protocols for pressure ulcer prophylaxis. Continue tube feeding with aspiration precautions. 03/27/2020. Patient currently with PSV / at FiO2 of 30%. Continue weaning and T-piece trials per protocol. Continue bronchodilators/nebulizer. Continue Scopolamine and Robinul for secretion control. Trach care/airway management. Mobility protocols for pressure ulcer prophylaxis. Continue tube feeding with aspiration precautions. 03/28. Had temp 100.7F. He has been off antibiotics. Will send blood culture, ua, urine culture and chest xray. Had chest pain overnight and trop was elevated as well. Cardiology to evaluate 03/29. Has back pain due to position. He mentions his chest pain is positional. Has no other complaints. Still on mechanical ventilation 03/30. No chest pain today. Labs reviewed. Discussed chest pain with cardiology and team advised no further work up at this time. Can follow up with cardiology in the office after hospitalization 03/31. Lidocaine patch for lower back pain. 04/01. Discharge planning underway. CM notes reviewed. Discussed with daughter 04/02 - . CM trying to arrange discharge. Continue PSV trials. Discussed with patients significant other 04/04/2020; CM is working for discharge arrangement. Continue PSV trials. 04/05/2020; patient was seen and evaluated this morning and no change from baseline. Continue with PSV trials. Follow with traffic operations engineer for discharge planning. 04/06/2020;patient was seen and evaluated this morning and no change from magdaleno herrera. Continue with PSV trials. Follow with traffic operations engineer for discharge planning. 04/07/2020; patient was seen and evaluated this morning and no change from baseline. Continue with PSV trials. Follow with traffic operations engineer for discharge planning. 04/08/2020; patient is vent dependent. Discharge is per traffic operations engineer. 04/09/2020 patient is vent dependent, possible LTAC placement 04/10/2020; tracheostomy on vent, vent dependent pending LTAC placement 04/11/2020; clinically no change, tracheostomy on ventilatory support, wean as tolerated, awaiting placement 04/12/2020; remains on ventilatory support, unable to wean, patient wants to see a speech therapist for sound box However we cannot try that as long as he is on ventilatory support, once he is weaned off vent We will consult speech therapist, plan of care reviewed with the patient and his nurse 04/14/2020; clinically no change, on ventilatory support, complains of constipation, milk of magnesia Closely monitor the patient and adjust the management as needed 04/15/2020; patient has some oral thrush on the tongue, will give Magic mouthwash/nystatin swish and spit Wean off vent as tolerated 04/16 patient is alert and oriented, unable to comprehend what he is trying to tell but appears to complain of some pain, no acute events overnight, all interdisciplinary notes reviewed. Waiting for LTAC versus residential facility placement 04/17/2020. Continue supportive care with mechanical ventilation. Patient currently on AC mode rate 10, tidal volume 400 FiO2 30% with a PEEP of 6. Discharge planning per case management. 04/18/2020. Patient remains on mechanical ventilation AC mode rate 10, tidal volume 400, FiO2 30% and PEEP of 6. Continue spontaneous breathing trials as tolerated. Previously, patient was considered for discharge home with skilled staff providing care for 12 hours 7 days/week. Continue discussed with case management discharge planning. 04/19/20. Patient remains on mechanical ventilation AC mode rate 10, tidal volume 400, FiO2 30% and PEEP of 6. Continue spontaneous breathing trials as tolerated. 04/20/2020. Patient remains on mechanical ventilation AC mode rate 10, tidal volume 400, FiO2 30% and PEEP of 6. Continue spontaneous breathing trials as tolerated. 04/21/2020. Patient remains on mechanical ventilation AC mode rate 10, tidal volume 400, FiO2 30% and PEEP of 6. Continue tracheostomy care, secretion control and airway management. Continue spontaneous breathing trials as tolerated. 04/22/2020. Patient remains on mechanical ventilation AC mode rate 10, tidal v olume 400, FiO2 30% and PEEP of 6. Continue tracheostomy care, secretion control and airway management. Continue spontaneous breathing trials as tolerated. 04/23/2020. Patient on mechanical ventilation AC mode rate 18, tidal volume 450, FiO2 30% and PEEP of 6. Continue tracheostomy care, secretion control and airway management. Continue spontaneous breathing trials as tolerated. Continue Robinul and scopolamine for secretions. Continue baclofen. 04/24/2020. Patient remains on AC mode ventilation rate 10, tidal volume 400, FiO2 30% and PEEP of 6. Continue tracheostomy care, secretion control and airway management. Continue spontaneous breathing trials as tolerated. Continue Robinul and scopolamine for secretions. Continue baclofen. Continue Xanax for anxiety and Ambien for sleep. Await case management follow-up with regards to discharge planning. 04/25/2020. Patient remains on AC mode ventilation rate 10, tidal volume 400, FiO2 30% and PEEP of 6. Continue tracheostomy care, secretion control and airway management. Continue spontaneous breathing trials as tolerated. Continue Robinul and scopolamine for secretions. Continue baclofen. Continue Xanax for anxiety and Ambien for sleep. Await case management follow-up with regards to discharge planning. 04/26. Patient remains on AC mode ventilation rate 10, tidal volume 400, FiO2 30% and PEEP of 6. Continue tracheostomy care, secretion control and airway management. Continue spontaneous breathing trials as tolerated. Continue Robinul and scopolamine for secretions. Continue baclofen. Continue Xanax for anxiety and Ambien for sleep. Await case management follow-up with regards to discharge planning. 04/27. Patient remains on AC mode ventilation rate 10, tidal volume 400, FiO2 30% and PEEP of 6. Continue tracheostomy care, secretion control and airway management. Continue spontaneous breathing trials as tolerated. Continue Robinul and scopolamine for secretions. Continue baclofen. Continue Xanax for anxiety and Ambien for sleep. Await case management follow-up with regards to discharge [place] [facility]. 04/28/20 no acute events overnight, remains vent dependent, cardiology and pulmonary notes reviewed Hospitalist Physical Narrative exam: VITAL SIGNS: Reviewed. GENERAL: Awake. trach to vent HEAD: No signs of head trauma. EYES: Pupils are equal. Extraocular motions intact. EARS: Hearing grossly intact. NECK: No adenopathy, no JVD. Tracheostomy CHEST: Coarse breath sounds bilaterally CARDIAC: Regular rate and rhythm. VASCULAR: No Edema. ABDOMEN: Soft, non tender and non distended. Has a functioning PEG tube NEUROLOGIC EXAM: Awake SKIN: No obvious lesions Objective - Constitutional Vitals: Vital Signs - 12hr 04/28/20 04/28/20 04/28/20 02:54 03:00 04:00 Temperature 98.2 F Pulse Rate 102 H 101 H Pulse Rate [ 101 H From Monitor] Respiratory 13 18 14 Rate Blood Pressure 109/77 104/71 O2 Sat by Pulse 99 98 Oximetry O2 Sat by Pulse Oximetry [ Assessment] 04/28/20 04/28/20 04/28/20 04:49 05:00 05:47 Temperature Pulse Rate 96 H 100 H Pulse Rate [ From Monitor] Respiratory 21 Rate Blood Pressure 104/71 109/66 O2 Sat by Pulse 100 100 Oximetry O2 Sat by Pulse 100 Oximetry [ Assessment] 04/28/20 04/28/20 04/28/20 06:00 07:00 07:30 Temperature Pulse Rate 100 H 95 H 93 H Pulse Rate [ From Monitor] Respiratory 18 19 Rate Blood Pressure 89/60 92/64 92/64 O2 Sat by Pulse 99 98 100 Oximetry O2 Sat by Pulse Oximetry [ Assessment] 04/28/20 04/28/20 04/28/20 07:33 08:00 09:00 Temperature 99.0 F Pulse Rate 94 H 97 H 108 H Pulse Rate [ 91 H From Monitor] Respiratory 19 19 18 Rate Blood Pressure 92/64 102/64 105/70 O2 Sat by Pulse 100 100 99 Oximetry O2 Sat by Pulse Oximetry [ Assessment] 04/28/20 04/28/20 04/28/20 09:32 10:00 11:00 Temperature Pulse Rate 106 H 101 H 99 H Pulse Rate [ From Monitor] Respiratory 21 18 Rate Blood Pressure 105/70 100/66 96/62 O2 Sat by Pulse 97 100 Oximetry O2 Sat by Pulse Oximetry [ Assessment] 04/28/20 04/28/20 04/28/20 11:19 12:00 13:00 Temperature 98.0 F Pulse Rate 98 H 98 H 98 H Pulse Rate [ 112 H From Monitor] Respiratory 18 22 20 Rate Blood Pressure 96/62 91/64 95/59 O2 Sat by Pulse 100 100 100 Oximetry O2 Sat by Pulse Oximetry [ Assessment] 04/28/20 14:00 Temperature Pulse Rate 104 H Pulse Rate [ From Monitor] Respiratory 18 Rate Blood Pressure 107/65 O2 Sat by Pulse 100 Oximetry O2 Sat by Pulse Oximetry [ Assessment] - Labs CBC & Chem 7: 04/25/20 06:34 04/25/20 06:34 Labs: Abnormal lab results 04/27/20 04/27/20 04/28/20 Range/Units 17:08 23:31 05:42 POC Glucose 118 H 122 H 122 H (70-105) mg/dL HEART Score - HEART Score Troponin: Troponin T 0.181 ng/mL (0.00-0.029) H* 04/24/20 05:28
[2020-04-28] MEDS: ALPRAZolam 0.5 MG TAB PO PRN (15:54)
[2020-04-28] MEDS: ACETAMINOPHEN 325 MG TAB PO PRN (15:54)
--- NOTE | 2020-04-28 17:39 | Progress Note ---
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 Respiratory Failure Severe Sepsis with Shock Bilateral Pneumonia (Possible aspiration) History of ALS on Trilogy Oropharyngeal Dysphagia PUI-COVID Acute toxic metabolic encephalopathy Elevated D-dimer Elevated troponin possibly type 2 ischemia - no new issues, discharge planning still ongoing for home ventilator - remains ventilator dependent; continue care as below: - continue home meds re: chronic pain (Baclofen, Lyrica) - continue daily SBT's as tolerated; t-piece trial attempts as tolerated (PSV if fails) - repeat CXR prn +/- bronchoscopy for mucus plugging / large volume atelectasis - continue psychoactive meds for anxiolysis - continue Robinul & scopolamine for secretion control - prn electrolytes and optimize K+ & Mg 2+ for best respiratory muscle function - wound care per RN/WCN - wean supplemental oxygen for target O2 sat's > 90% acutely - bronchodilators with pulmonary hygiene per RT - VAP bundle addressed - continue lung protective strategies - continue bronchodilators with pulmonary hygiene per RT - wean per pulmonary driven protocols otherwise - sedation prn for target RASS 0 to -1 - s/p empiric antiinfectives per ID rec's (Rocephin and Zithromax) - s/p COVID-19 isolation (Airborne & Contact) - s/p Dexamethasone - enteral nutrition at goal rate as tolerated - accuchecks with glycemic control per SSI (While critically ill target blood glucose of 140-180 mg/dL; avoid hypoglycemia) - avoid nephrotoxins, renally dose all medications - avoid benzodiazepine's, reduce the possibility of delirium - prn analgesia per CPOT score - Maintenance of sleep-wake cycle, avoid delirium - aspiration precautions - G.I. & VTE prophylaxis - PT/OT/ROM exercises - mobility protocols for pressure ulcer prophylaxis - Monitor hemodynamics closely - continue other care per attending / other consultants - discharge planning ongoing concurrently .... Re-evaluate in am & prn CONDITION: CRITICAL PROGNOSIS: GUARDED CODE STATUS: FULL CODE The high probability of a clinically significant, sudden or life-threatening deterioration of the [respiratory, cardiovascular & neurologic] system(s) required my full and direct attention, intervention and personal management. The aggregate critical care time was [32] minutes without overlap. Time includes spent on; [x] Data Review and interpretation [x] Patient assessment and monitoring of vital signs [x] Documentation [x] Medication orders and management Subjective Date of service: 04/28/20 Principal diagnosis: Ac on Ch Hypercapnic & hypoxemic Resp Failure; Severe Sepsis; Jamar PNA; ALS Interval history: Patient is seen today for: Acute on Chronic Hypercapnic & hypoxemic Respiratory Failure; Severe Sepsis with Shock; Bilateral Pneumonia (Possible aspiration); History of ALS on Trilogy; PUI-COVID; Acute toxic metabolic encephalopathy Seen and examined at bedside; 24hour events reviewed; nursing and respiratory care staff consulted; no adverse overnight events reported to me; resting in bed; remains on MVS; still a difficult wean; no emesis or overt aspiration Objective Vital Signs - 12hr 04/28/20 04/28/20 04/28/20 05:47 06:00 07:00 Temperature Pulse Rate 100 H 95 H Pulse Rate [ From Monitor] Respiratory 18 19 Rate Blood Pressure 89/60 92/64 O2 Sat by Pulse 99 98 Oximetry O2 Sat by Pulse 100 Oximetry [ Assessment] 04/28/20 04/28/20 04/28/20 07:30 07:33 08:00 Temperature 99.0 F Pulse Rate 93 H 94 H 97 H Pulse Rate [ 91 H From Monitor] Respiratory 19 19 Rate Blood Pressure 92/64 92/64 102/64 O2 Sat by Pulse 100 100 100 Oximetry O2 Sat by Pulse Oximetry [ Assessment] 04/28/20 04/28/20 04/28/20 09:00 09:32 10:00 Temperature Pulse Rate 108 H 106 H 101 H Pulse Rate [ From Monitor] Respiratory 18 21 Rate Blood Pressure 105/70 105/70 100/66 O2 Sat by Pulse 99 97 Oximetry O2 Sat by Pulse Oximetry [ Assessment] 04/28/20 04/28/20 04/28/20 11:00 11:19 12:00 Temperature 98.0 F Pulse Rate 99 H 98 H 98 H Pulse Rate [ 112 H From Monitor] Respiratory 18 18 22 Rate Blood Pressure 96/62 96/62 91/64 O2 Sat by Pulse 100 100 100 Oximetry O2 Sat by Pulse Oximetry [ Assessment] 04/28/20 04/28/20 04/28/20 13:00 14:00 15:00 Temperature Pulse Rate 98 H 104 H 110 H Pulse Rate [ From Monitor] Respiratory 20 18 19 Rate Blood Pressure 95/59 107/65 104/63 O2 Sat by Pulse 100 100 99 Oximetry O2 Sat by Pulse Oximetry [ Assessment] 04/28/20 16:00 Temperature Pulse Rate 109 H Pulse Rate [ 112 H From Monitor] Respiratory 21 Rate Blood Pressure 105/69 O2 Sat by Pulse 98 Oximetry O2 Sat by Pulse Oximetry [ Assessment] Constitutional: no acute distress, other (thin middle aged male with normal respiratory effort at rest on MVS) Eyes: non-icteric ENT: oropharynx moist, other (S/P Tracheostomy) Neck: supple, no lymphadenopathy, no JVD Effort: mildly labored Ascultation: Bilateral: diminished breath sounds, rhonchi Percussion: Bilateral: not dull Cardiovascular: regular rate and rhythm, other (S1,S2, no murmurs) Gastrointestinal: normoactive bowel sounds, soft, non-tender, non-distended, other (+ distended but non tender suprapubis) Integumentary: normal, decubitus ulcer (sacral / gluteal) Extremities: no cyanosis, no edema, pulses normal, other (atrophic looking limbs) Neurologic: pupils equal and round, other (motor strength in extremities 1-2/5, awake, alert, mouths words to make needs known) Psychiatric: mood appropriate, affect normal CBC and BMP: 05/03/20 14:06 05/03/20 14:06 ABG, PT/INR, D-dimer: ABG ABG pH 7.371 (7.320-7.450) 03/08/20 12:34 POC ABG pCO2 63.1 mmHg (32.0-48.0) H 03/08/20 12:34 ABG pCO2 60.1 mm Hg 03/06/20 04:34 POC ABG pO2 90.5 mmHg (83-108) 03/08/20 12:34 ABG pO2 88.6 mm Hg (80.0-90.0) 03/06/20 04:34 POC ABG HCO3 35.7 03/08/20 12:34 ABG O2 Saturation 97.0 % (95.0-99.0) 03/06/20 04:34 PT/INR, D-dimer PT 15.6 Sec. (12.2-14.9) H 02/24/20 09:19 INR 1.21 (0.87-1.13) H 02/24/20 09:19 D-Dimer 1311.96 ng/mlDDU (0-234) H 02/24/20 09:19 Abnormal lab findings: Abnormal Labs 02/24/20 02/24/20 02/24/20 09:19 09:19 09:19 WBC 20.2 H RBC 5.05 H Hgb Hct MCV MCH RDW 15.3 H Plt Count Lymph % (Auto) [place] % (Auto) Lymph # (Auto) [place] # (Auto) Seg Neutrophils % Seg Neuts % (Manual) 86.0 H Lymphocytes % (Manual) 1.0 L Monocytes % (Manual) Basophils % (Manual) Seg Neutrophils # Seg Neutrophils # Man 17.4 H Lymphocytes # (Manual) 0.2 L Monocytes # (Manual) Eosinophils # (Manual) Basophils # (Manual) PT 15.6 H INR 1.21 H D-Dimer 1311.96 H ABG pH POC ABG pCO2 POC ABG pO2 ABG pO2 ABG HCO3 ABG O2 Saturation ABG Base Excess ABG Hemoglobin ABG Oxyhemoglobin ABG Potassium ABG Glucose Oxyhemoglobin Carboxyhemoglobin Sodium 135 L Potassium 3.2 L Chloride 92.2 L Carbon Dioxide BUN 6 L Creatinine < 0.2 L Glucose 124 H POC Glucose Calcium Ferritin Total Bilirubin 2.30 H Alkaline Phosphatase 132 H Lactate Dehydrogenase Total Creatine Kinase CK-MB (CK-2) Rel Index Troponin T 0.080 H C-Reactive Protein Total Protein Albumin 3.6 L Prealbumin LDL Cholesterol Direct 41 L HDL Cholesterol Arterial Blood Glucose Arterial Blood Ionized Calcium Urine WBC (Auto) 02/24/20 02/24/20 02/24/20 09:19 09:58 10:01 WBC RBC Hgb Hct MCV MCH RDW Plt Count Lymph % (Auto) [place] % (Auto) Lymph # (Auto) [place] # (Auto) Seg Neutrophils % Seg Neuts % (Manual) Lymphocytes % (Manual) Monocytes % (Manual) Basophils % (Manual) Seg Neutrophils # Seg Neutrophils # Man Lymphocytes # (Manual) Monocytes # (Manual) Eosinophils # (Manual) Basophils # (Manual) PT INR D-Dimer ABG pH 7.176 L* POC ABG pCO2 POC ABG pO2 ABG pO2 91.2 H ABG HCO3 ABG O2 Saturation ABG Base Excess -4.6 L ABG Hemoglobin ABG Oxyhemoglobin ABG Potassium ABG Glucose Oxyhemoglobin 92.6 L Carboxyhemoglobin Sodium Potassium Chloride Carbon Dioxide BUN Creatinine Glucose POC Glucose Calcium Ferritin 1715.0 H Total Bilirubin Alkaline Phosphatase Lactate Dehydrogenase 303 H Total Creatine Kinase CK-MB (CK-2) Rel Index Troponin T C-Reactive Protein 26.10 H Total Protein Albumin Prealbumin LDL Cholesterol Direct HDL Cholesterol Arterial Blood Glucose Arterial Blood Ionized Calcium Urine WBC (Auto) 02/24/20 02/24/20 02/24/20 11:52 13:45 19:35 WBC RBC Hgb Hct MCV MCH RDW Plt Count Lymph % (Auto) [place] % (Auto) Lymph # (Auto) [place] # (Auto) Seg Neutrophils % Seg Neuts % (Manual) Lymphocytes % (Manual) Monocytes % (Manual) Basophils % (Manual) Seg Neutrophils # Seg Neutrophils # Man Lymphocytes # (Manual) Monocytes # (Manual) Eosinophils # (Manual) Basophils # (Manual) PT INR D-Dimer ABG pH 7.051 L* 7.300 L POC ABG pCO2 POC ABG pO2 ABG pO2 94.7 H 75.1 L ABG HCO3 18.0 L ABG O2 Saturation 93.5 L ABG Base Excess -6.8 L -7.8 L ABG Hemoglobin 13.2 L 11.9 L ABG Oxyhemoglobin ABG Potassium ABG Glucose Oxyhemoglobin 91.0 L 92.7 L Carboxyhemoglobin Sodium Potassium Chloride Carbon Dioxide BUN Creatinine Glucose POC Glucose Calcium Ferritin Total Bilirubin Alkaline Phosphatase Lactate Dehydrogenase Total Creatine Kinase CK-MB (CK-2) Rel Index Troponin T 0.034 H D C-Reactive Protein Total Protein Albumin Prealbumin LDL Cholesterol Direct HDL Cholesterol Arterial Blood Glucose Arterial Blood Ionized Calcium Urine WBC (Auto) 02/25/20 02/25/20 02/25/20 04:00 04:00 12:26 WBC 22.9 H RBC Hgb Hct MCV 83 L MCH 27 L RDW Plt Count 468 H Lymph % (Auto) [place] % (Auto) Lymph # (Auto) [place] # (Auto) Seg Neutrophils % Seg Neuts % (Manual) 89.0 H Lymphocytes % (Manual) 7.0 L Monocytes % (Manual) Basophils % (Manual) Seg Neutrophils # Seg Neutrophils # Man 20.4 H Lymphocytes # (Manual) Monocytes # (Manual) Eosinophils # (Manual) Basophils # (Manual) PT INR D-Dimer ABG pH POC ABG pCO2 POC ABG pO2 ABG pO2 ABG HCO3 ABG O2 Saturation ABG Base Excess ABG Hemoglobin ABG Oxyhemoglobin ABG Potassium 2.6 L ABG Glucose 142 H Oxyhemoglobin Carboxyhemoglobin Sodium Potassium 3.2 L Chloride Carbon Dioxide 18 L BUN Creatinine 0.2 L Glucose 114 H POC Glucose Calcium Ferritin Total Bilirubin Alkaline Phosphatase Lactate Dehydrogenase Total Creatine Kinase CK-MB (CK-2) Rel Index Troponin T C-Reactive Protein Total Protein Albumin 3.5 L Prealbumin LDL Cholesterol Direct HDL Cholesterol Arterial Blood Glucose 142 H Arterial Blood Ionized Calcium Urine WBC (Auto) 02/26/20 02/26/20 02/26/20 15:58 17:00 23:43 WBC RBC Hgb Hct MCV MCH RDW Plt Count Lymph % (Auto) [place] % (Auto) Lymph # (Auto) [place] # (Auto) Seg Neutrophils % Seg Neuts % (Manual) Lymphocytes % (Manual) Monocytes % (Manual) Basophils % (Manual) Seg Neutrophils # Seg Neutrophils # Man Lymphocytes # (Manual) Monocytes # (Manual) Eosinophils # (Manual) Basophils # (Manual) PT INR D-Dimer ABG pH 7.502 H POC ABG pCO2 POC ABG pO2 213.6 H ABG pO2 ABG HCO3 ABG O2 Saturation ABG Base Excess ABG Hemoglobin ABG Oxyhemoglobin 99.2 H ABG Potassium 2.9 L ABG Glucose 160 H Oxyhemoglobin Carboxyhemoglobin 0.4 L Sodium Potassium Chloride Carbon Dioxide BUN Creatinine Glucose POC Glucose 189 H 120 H Calcium Ferritin Total Bilirubin Alkaline Phosphatase Lactate Dehydrogenase Total Creatine Kinase CK-MB (CK-2) Rel Index Troponin T C-Reactive Protein Total Protein Albumin Prealbumin LDL Cholesterol Direct HDL Cholesterol Arterial Blood Glucose 160 H Arterial Blood Ionized Calcium 4.5 L Urine WBC (Auto) 02/27/20 02/27/20 02/27/20 05:00 07:04 17:45 WBC RBC Hgb Hct MCV MCH RDW Plt Count Lymph % (Auto) [place] % (Auto) Lymph # (Auto) [place] # (Auto) Seg Neutrophils % Seg Neuts % (Manual) Lymphocytes % (Manual) Monocytes % (Manual) Basophils % (Manual) Seg Neutrophils # Seg Neutrophils # Man Lymphocytes # (Manual) Monocytes # (Manual) Eosinophils # (Manual) Basophils # (Manual) PT INR D-Dimer ABG pH 7.524 H POC ABG pCO2 POC ABG pO2 ABG pO2 ABG HCO3 ABG O2 Saturation ABG Base Excess ABG Hemoglobin ABG Oxyhemoglobin ABG Potassium 3.0 L ABG Glucose 143 H Oxyhemoglobin Carboxyhemoglobin Sodium Potassium Chloride Carbon Dioxide BUN Creatinine Glucose POC Glucose 154 H 175 H Calcium Ferritin Total Bilirubin Alkaline Phosphatase Lactate Dehydrogenase Total Creatine Kinase CK-MB (CK-2) Rel Index Troponin T C-Reactive Protein Total Protein Albumin Prealbumin LDL Cholesterol Direct HDL Cholesterol Arterial Blood Glucose 143 H Arterial Blood Ionized Calcium Urine WBC (Auto) 02/27/20 02/28/20 02/28/20 Unknown 00:21 04:15 WBC 18.7 H RBC Hgb Hct MCV MCH RDW Plt Count Lymph % (Auto) 8.7 L [place] % (Auto) Lymph # (Auto) [place] # (Auto) 1.2 H Seg Neutrophils % 84.6 H Seg Neuts % (Manual) Lymphocytes % (Manual) Monocytes % (Manual) Basophils % (Manual) Seg Neutrophils # 15.9 H Seg Neutrophils # Man Lymphocytes # (Manual) Monocytes # (Manual) Eosinophils # (Manual) Basophils # (Manual) PT INR D-Dimer ABG pH POC ABG pCO2 POC ABG pO2 ABG pO2 ABG HCO3 ABG O2 Saturation ABG Base Excess ABG Hemoglobin ABG Oxyhemoglobin ABG Potassium ABG Glucose Oxyhemoglobin Carboxyhemoglobin Sodium Potassium 2.9 L* Chloride Carbon Dioxide 33 H D BUN Creatinine < 0.2 L Glucose 157 H POC Glucose 134 H Calcium Ferritin Total Bilirubin Alkaline Phosphatase Lactate Dehydrogenase Total Creatine Kinase CK-MB (CK-2) Rel Index Troponin T C-Reactive Protein Total Protein Albumin Prealbumin LDL Cholesterol Direct HDL Cholesterol Arterial Blood Glucose Arterial Blood Ionized Calcium Urine WBC (Auto) 02/28/20 02/28/20 02/28/20 04:15 05:16 05:39 WBC RBC Hgb Hct MCV MCH RDW Plt Count Lymph % (Auto) [place] % (Auto) Lymph # (Auto) [place] # (Auto) Seg Neutrophils % Seg Neuts % (Manual) Lymphocytes % (Manual) Monocytes % (Manual) Basophils % (Manual) Seg Neutrophils # Seg Neutrophils # Man Lymphocytes # (Manual) Monocytes # (Manual) Eosinophils # (Manual) Basophils # (Manual) PT INR D-Dimer ABG pH POC ABG pCO2 POC ABG pO2 ABG pO2 142.9 H ABG HCO3 34.1 H ABG O2 Saturation ABG Base Excess 8.3 H ABG Hemoglobin ABG Oxyhemoglobin ABG Potassium ABG Glucose Oxyhemoglobin Carboxyhemoglobin Sodium 151 H Potassium Chloride Carbon Dioxide 32 H BUN Creatinine 0.2 L Glucose 167 H POC Glucose 138 H Calcium Ferritin Total Bilirubin Alkaline Phosphatase Lactate Dehydrogenase Total Creatine Kinase CK-MB (CK-2) Rel Index Troponin T C-Reactive Protein Total Protein Albumin Prealbumin LDL Cholesterol Direct HDL Cholesterol Arterial Blood Glucose Arterial Blood Ionized Calcium Urine WBC (Auto) 02/28/20 02/28/20 02/28/20 11:05 11:33 12:54 WBC RBC Hgb Hct MCV MCH RDW Plt Count Lymph % (Auto) [place] % (Auto) Lymph # (Auto) [place] # (Auto) Seg Neutrophils % Seg Neuts % (Manual) Lymphocytes % (Manual) Monocytes % (Manual) Basophils % (Manual) Seg Neutrophils # Seg Neutrophils # Man Lymphocytes # (Manual) Monocytes # (Manual) Eosinophils # (Manual) Basophils # (Manual) PT INR D-Dimer ABG pH POC ABG pCO2 POC ABG pO2 ABG pO2 ABG HCO3 ABG O2 Saturation ABG Base Excess ABG Hemoglobin ABG Oxyhemoglobin ABG Potassium ABG Glucose Oxyhemoglobin Carboxyhemoglobin Sodium Potassium Chloride Carbon Dioxide BUN Creatinine Glucose POC Glucose 160 H Calcium Ferritin Total Bilirubin Alkaline Phosphatase Lactate Dehydrogenase Total Creatine Kinase CK-MB (CK-2) Rel Index Troponin T C-Reactive Protein 4.70 H Total Protein Albumin Prealbumin 0.090 L LDL Cholesterol Direct HDL Cholesterol Arterial Blood Glucose Arterial Blood Ionized Calcium Urine WBC (Auto) 02/28/20 02/29/20 02/29/20 17:34 00:44 04:05 WBC 19.6 H RBC Hgb Hct MCV MCH 27 L RDW 15.4 H Plt Count Lymph % (Auto) [place] % (Auto) Lymph # (Auto) [place] # (Auto) Seg Neutrophils % Seg Neuts % (Manual) 86.0 H Lymphocytes % (Manual) 7.0 L Monocytes % (Manual) Basophils % (Manual) Seg Neutrophils # Seg Neutrophils # Man 16.9 H Lymphocytes # (Manual) Monocytes # (Manual) 1.2 H Eosinophils # (Manual) Basophils # (Manual) PT INR D-Dimer ABG pH POC ABG pCO2 POC ABG pO2 ABG pO2 ABG HCO3 ABG O2 Saturation ABG Base Excess ABG Hemoglobin ABG Oxyhemoglobin ABG Potassium ABG Glucose Oxyhemoglobin Carboxyhemoglobin Sodium Potassium Chloride Carbon Dioxide BUN Creatinine Glucose POC Glucose 136 H 156 H Calcium Ferritin Total Bilirubin Alkaline Phosphatase Lactate Dehydrogenase Total Creatine Kinase CK-MB (CK-2) Rel Index Troponin T C-Reactive Protein Total Protein Albumin Prealbumin LDL Cholesterol Direct HDL Cholesterol Arterial Blood Glucose Arterial Blood Ionized Calcium Urine WBC (Auto) 02/29/20 02/29/20 02/29/20 04:05 05:14 05:33 WBC RBC Hgb Hct MCV MCH RDW Plt Count Lymph % (Auto) [place] % (Auto) Lymph # (Auto) [place] # (Auto) Seg Neutrophils % Seg Neuts % (Manual) Lymphocytes % (Manual) Monocytes % (Manual) Basophils % (Manual) Seg Neutrophils # Seg Neutrophils # Man Lymphocytes # (Manual) Monocytes # (Manual) Eosinophils # (Manual) Basophils # (Manual) PT INR D-Dimer ABG pH POC ABG pCO2 54.3 H POC ABG pO2 124.8 H ABG pO2 ABG HCO3 ABG O2 Saturation ABG Base Excess ABG Hemoglobin ABG Oxyhemoglobin ABG Potassium ABG Glucose 185 H Oxyhemoglobin Carboxyhemoglobin Sodium 148 H Potassium Chloride Carbon Dioxide 33 H BUN Creatinine < 0.2 L Glucose 173 H POC Glucose 152 H Calcium Ferritin Total Bilirubin Alkaline Phosphatase Lactate Dehydrogenase Total Creatine Kinase CK-MB (CK-2) Rel Index Troponin T C-Reactive Protein Total Protein Albumin Prealbumin LDL Cholesterol Direct HDL Cholesterol Arterial Blood Glucose 185 H Arterial Blood Ionized Calcium Urine WBC (Auto) 03/01/20 03/01/20 03/01/20 00:00 03:45 04:33 WBC 23.1 H RBC Hgb Hct MCV MCH 27 L RDW 15.3 H Plt Count Lymph % (Auto) [place] % (Auto) Lymph # (Auto) [place] # (Auto) Seg Neutrophils % Seg Neuts % (Manual) 92.0 H Lymphocytes % (Manual) 6.0 L Monocytes % (Manual) Basophils % (Manual) Seg Neutrophils # Seg Neutrophils # Man 21.3 H Lymphocytes # (Manual) Monocytes # (Manual) Eosinophils # (Manual) 0.5 H Basophils # (Manual) PT INR D-Dimer ABG pH 7.492 H POC ABG pCO2 POC ABG pO2 ABG pO2 157.1 H ABG HCO3 32.3 H ABG O2 Saturation ABG Base Excess 8.1 H ABG Hemoglobin 13.2 L ABG Oxyhemoglobin ABG Potassium ABG Glucose Oxyhemoglobin Carboxyhemoglobin Sodium Potassium Chloride Carbon Dioxide BUN Creatinine Glucose POC Glucose 109 H Calcium Ferritin Total Bilirubin Alkaline Phosphatase Lactate Dehydrogenase Total Creatine Kinase CK-MB (CK-2) Rel Index Troponin T C-Reactive Protein Total Protein Albumin Prealbumin LDL Cholesterol Direct HDL Cholesterol Arterial Blood Glucose Arterial Blood Ionized Calcium Urine WBC (Auto) 03/01/20 03/01/20 03/01/20 04:33 05:29 12:32 WBC RBC Hgb Hct MCV MCH RDW Plt Count Lymph % (Auto) [place] % (Auto) Lymph # (Auto) [place] # (Auto) Seg Neutrophils % Seg Neuts % (Manual) Lymphocytes % (Manual) Monocytes % (Manual) Basophils % (Manual) Seg Neutrophils # Seg Neutrophils # Man Lymphocytes # (Manual) Monocytes # (Manual) Eosinophils # (Manual) Basophils # (Manual) PT INR D-Dimer ABG pH POC ABG pCO2 POC ABG pO2 ABG pO2 ABG HCO3 ABG O2 Saturation ABG Base Excess ABG Hemoglobin ABG Oxyhemoglobin ABG Potassium ABG Glucose Oxyhemoglobin Carboxyhemoglobin Sodium 146 H Potassium Chloride Carbon Dioxide 32 H BUN Creatinine < 0.2 L Glucose 120 H POC Glucose 120 H 128 H Calcium Ferritin Total Bilirubin Alkaline Phosphatase Lactate Dehydrogenase Total Creatine Kinase CK-MB (CK-2) Rel Index Troponin T C-Reactive Protein Total Protein Albumin Prealbumin LDL Cholesterol Direct HDL Cholesterol Arterial Blood Glucose Arterial Blood Ionized Calcium Urine WBC (Auto) 03/01/20 03/01/20 03/02/20 17:38 23:46 06:13 WBC RBC Hgb Hct MCV MCH RDW Plt Count Lymph % (Auto) [place] % (Auto) Lymph # (Auto) [place] # (Auto) Seg Neutrophils % Seg Neuts % (Manual) Lymphocytes % (Manual) Monocytes % (Manual) Basophils % (Manual) Seg Neutrophils # Seg Neutrophils # Man Lymphocytes # (Manual) Monocytes # (Manual) Eosinophils # (Manual) Basophils # (Manual) PT INR D-Dimer ABG pH POC ABG pCO2 POC ABG pO2 ABG pO2 ABG HCO3 ABG O2 Saturation ABG Base Excess ABG Hemoglobin ABG Oxyhemoglobin ABG Potassium ABG Glucose Oxyhemoglobin Carboxyhemoglobin Sodium Potassium Chloride Carbon Dioxide BUN Creatinine Glucose POC Glucose 114 H 121 H 120 H Calcium Ferritin Total Bilirubin Alkaline Phosphatase Lactate Dehydrogenase Total Creatine Kinase CK-MB (CK-2) Rel Index Troponin T C-Reactive Protein Total Protein Albumin Prealbumin LDL Cholesterol Direct HDL Cholesterol Arterial Blood Glucose Arterial Blood Ionized Calcium Urine WBC (Auto) 03/02/20 03/02/20 03/03/20 09:47 09:47 10:21 WBC 23.6 H RBC Hgb Hct MCV MCH RDW 15.3 H Plt Count 494 H Lymph % (Auto) [place] % (Auto) Lymph # (Auto) [place] # (Auto) Seg Neutrophils % Seg Neuts % (Manual) 85.0 H Lymphocytes % (Manual) 6.0 L Monocytes % (Manual) Basophils % (Manual) Seg Neutrophils # Seg Neutrophils # Man 20.1 H Lymphocytes # (Manual) Monocytes # (Manual) 1.7 H Eosinophils # (Manual) Basophils # (Manual) PT INR D-Dimer ABG pH POC ABG pCO2 POC ABG pO2 ABG pO2 ABG HCO3 ABG O2 Saturation ABG Base Excess ABG Hemoglobin ABG Oxyhemoglobin ABG Potassium 3.3 L ABG Glucose 158 H Oxyhemoglobin Carboxyhemoglobin Sodium Potassium Chloride Carbon Dioxide BUN Creatinine < 0.2 L Glucose 177 H POC Glucose Calcium Ferritin Total Bilirubin Alkaline Phosphatase Lactate Dehydrogenase Total Creatine Kinase CK-MB (CK-2) Rel Index Troponin T C-Reactive Protein Total Protein Albumin Prealbumin LDL Cholesterol Direct HDL Cholesterol Arterial Blood Glucose 158 H Arterial Blood Ionized Calcium Urine WBC (Auto) 03/03/20 03/04/20 03/04/20 21:30 00:00 12:23 WBC RBC Hgb Hct MCV MCH RDW Plt Count Lymph % (Auto) [place] % (Auto) Lymph # (Auto) [place] # (Auto) Seg Neutrophils % Seg Neuts % (Manual) Lymphocytes % (Manual) Monocytes % (Manual) Basophils % (Manual) Seg Neutrophils # Seg Neutrophils # Man Lymphocytes # (Manual) Monocytes # (Manual) Eosinophils # (Manual) Basophils # (Manual) PT INR D-Dimer ABG pH 7.328 L POC ABG pCO2 POC ABG pO2 ABG pO2 68.4 L ABG HCO3 35.0 H ABG O2 Saturation 93.9 L ABG Base Excess 6.8 H ABG Hemoglobin 12.7 L ABG Oxyhemoglobin ABG Potassium ABG Glucose Oxyhemoglobin 91.9 L Carboxyhemoglobin Sodium Potassium Chloride Carbon Dioxide BUN Creatinine Glucose POC Glucose 187 H 163 H Calcium Ferritin Total Bilirubin Alkaline Phosphatase Lactate Dehydrogenase Total Creatine Kinase CK-MB (CK-2) Rel Index Troponin T C-Reactive Protein Total Protein Albumin Prealbumin LDL Cholesterol Direct HDL Cholesterol Arterial Blood Glucose Arterial Blood Ionized Calcium Urine WBC (Auto) 03/04/20 03/04/20 03/05/20 18:15 21:30 06:02 WBC RBC Hgb Hct MCV MCH RDW Plt Count Lymph % (Auto) [place] % (Auto) Lymph # (Auto) [place] # (Auto) Seg Neutrophils % Seg Neuts % (Manual) Lymphocytes % (Manual) Monocytes % (Manual) Basophils % (Manual) Seg Neutrophils # Seg Neutrophils # Man Lymphocytes # (Manual) Monocytes # (Manual) Eosinophils # (Manual) Basophils # (Manual) PT INR D-Dimer ABG pH 7.297 L POC ABG pCO2 POC ABG pO2 ABG pO2 ABG HCO3 41.0 H ABG O2 Saturation ABG Base Excess 11.0 H ABG Hemoglobin 13.1 L ABG Oxyhemoglobin ABG Potassium ABG Glucose Oxyhemoglobin 94.5 L Carboxyhemoglobin Sodium Potassium Chloride Carbon Dioxide BUN Creatinine Glucose POC Glucose 192 H 127 H Calcium Ferritin Total Bilirubin Alkaline Phosphatase Lactate Dehydrogenase Total Creatine Kinase CK-MB (CK-2) Rel Index Troponin T C-Reactive Protein Total Protein Albumin Prealbumin LDL Cholesterol Direct HDL Cholesterol Arterial Blood Glucose Arterial Blood Ionized Calcium Urine WBC (Auto) 03/05/20 03/05/20 03/06/20 12:09 16:42 00:24 WBC RBC Hgb Hct MCV MCH RDW Plt Count Lymph % (Auto) [place] % (Auto) Lymph # (Auto) [place] # (Auto) Seg Neutrophils % Seg Neuts % (Manual) Lymphocytes % (Manual) Monocytes % (Manual) Basophils % (Manual) Seg Neutrophils # Seg Neutrophils # Man Lymphocytes # (Manual) Monocytes # (Manual) Eosinophils # (Manual) Basophils # (Manual) PT INR D-Dimer ABG pH POC ABG pCO2 POC ABG pO2 ABG pO2 ABG HCO3 ABG O2 Saturation ABG Base Excess ABG Hemoglobin ABG Oxyhemoglobin ABG Potassium ABG Glucose Oxyhemoglobin Carboxyhemoglobin Sodium Potassium Chloride Carbon Dioxide BUN Creatinine Glucose POC Glucose 147 H 114 H 134 H Calcium Ferritin Total Bilirubin Alkaline Phosphatase Lactate Dehydrogenase Total Creatine Kinase CK-MB (CK-2) Rel Index Troponin T C-Reactive Protein Total Protein Albumin Prealbumin LDL Cholesterol Direct HDL Cholesterol Arterial Blood Glucose Arterial Blood Ionized Calcium Urine WBC (Auto) 03/06/20 03/06/20 03/06/20 04:34 05:53 06:08 WBC 25.4 H RBC Hgb 10.5 L Hct 32.7 L MCV MCH 27 L RDW 15.3 H Plt Count 634 H Lymph % (Auto) [place] % (Auto) Lymph # (Auto) [place] # (Auto) Seg Neutrophils % Seg Neuts % (Manual) 88.0 H Lymphocytes % (Manual) 2.0 L Monocytes % (Manual) 8.0 H Basophils % (Manual) Seg Neutrophils # Seg Neutrophils # Man 22.4 H Lymphocytes # (Manual) 0.5 L Monocytes # (Manual) 2.0 H Eosinophils # (Manual) Basophils # (Manual) PT INR D-Dimer ABG pH POC ABG pCO2 POC ABG pO2 ABG pO2 ABG HCO3 37.9 H ABG O2 Saturation ABG Base Excess 11.4 H ABG Hemoglobin 10.6 L ABG Oxyhemoglobin ABG Potassium ABG Glucose Oxyhemoglobin 94.7 L Carboxyhemoglobin Sodium Potassium Chloride Carbon Dioxide BUN Creatinine Glucose POC Glucose 135 H Calcium Ferritin Total Bilirubin Alkaline Phosphatase Lactate Dehydrogenase Total Creatine Kinase CK-MB (CK-2) Rel Index Troponin T C-Reactive Protein Total Protein Albumin Prealbumin LDL Cholesterol Direct HDL Cholesterol Arterial Blood Glucose Arterial Blood Ionized Calcium Urine WBC (Auto) 03/06/20 03/06/20 03/06/20 06:08 12:19 19:10 WBC RBC Hgb Hct MCV MCH RDW Plt Count Lymph % (Auto) [place] % (Auto) Lymph # (Auto) [place] # (Auto) Seg Neutrophils % Seg Neuts % (Manual) Lymphocytes % (Manual) Monocytes % (Manual) Basophils % (Manual) Seg Neutrophils # Seg Neutrophils # Man Lymphocytes # (Manual) Monocytes # (Manual) Eosinophils # (Manual) Basophils # (Manual) PT INR D-Dimer ABG pH POC ABG pCO2 POC ABG pO2 ABG pO2 ABG HCO3 ABG O2 Saturation ABG Base Excess ABG Hemoglobin ABG Oxyhemoglobin ABG Potassium ABG Glucose Oxyhemoglobin Carboxyhemoglobin Sodium 150 H D Potassium Chloride Carbon Dioxide 39 H D BUN 23 H Creatinine < 0.2 L Glucose 144 H POC Glucose 169 H 152 H Calcium Ferritin Total Bilirubin Alkaline Phosphatase Lactate Dehydrogenase Total Creatine Kinase CK-MB (CK-2) Rel Index Troponin T C-Reactive Protein Total Protein Albumin 3.3 L Prealbumin LDL Cholesterol Direct HDL Cholesterol Arterial Blood Glucose Arterial Blood Ionized Calcium Urine WBC (Auto) 03/06/20 03/07/20 03/07/20 23:58 04:25 04:25 WBC 22.1 H RBC Hgb 10.9 L Hct 32.9 L MCV MCH RDW 15.5 H Plt Count 739 H Lymph % (Auto) 7.8 L [place] % (Auto) Lymph # (Auto) [place] # (Auto) 1.3 H Seg Neutrophils % 85.5 H Seg Neuts % (Manual) Lymphocytes % (Manual) Monocytes % (Manual) Basophils % (Manual) Seg Neutrophils # 18.9 H Seg Neutrophils # Man Lymphocytes # (Manual) Monocytes # (Manual) Eosinophils # (Manual) Basophils # (Manual) PT INR D-Dimer ABG pH POC ABG pCO2 POC ABG pO2 ABG pO2 ABG HCO3 ABG O2 Saturation ABG Base Excess ABG Hemoglobin ABG Oxyhemoglobin ABG Potassium ABG Glucose Oxyhemoglobin Carboxyhemoglobin Sodium 146 H Potassium Chloride Carbon Dioxide 37 H BUN Creatinine < 0.2 L Glucose 118 H POC Glucose 111 H Calcium Ferritin Total Bilirubin Alkaline Phosphatase Lactate Dehydrogenase Total Creatine Kinase CK-MB (CK-2) Rel Index Troponin T C-Reactive Protein Total Protein Albumin 3.7 L Prealbumin LDL Cholesterol Direct HDL Cholesterol Arterial Blood Glucose Arterial Blood Ionized Calcium Urine WBC (Auto) 03/07/20 03/07/20 03/07/20 05:20 17:45 23:32 WBC RBC Hgb Hct MCV MCH RDW Plt Count Lymph % (Auto) [place] % (Auto) Lymph # (Auto) [place] # (Auto) Seg Neutrophils % Seg Neuts % (Manual) Lymphocytes % (Manual) Monocytes % (Manual) Basophils % (Manual) Seg Neutrophils # Seg Neutrophils # Man Lymphocytes # (Manual) Monocytes # (Manual) Eosinophils # (Manual) Basophils # (Manual) PT INR D-Dimer ABG pH POC ABG pCO2 POC ABG pO2 ABG pO2 ABG HCO3 ABG O2 Saturation ABG Base Excess ABG Hemoglobin ABG Oxyhemoglobin ABG Potassium ABG Glucose Oxyhemoglobin Carboxyhemoglobin Sodium Potassium Chloride Carbon Dioxide BUN Creatinine Glucose POC Glucose 113 H 124 H 210 H Calcium Ferritin Total Bilirubin Alkaline Phosphatase Lactate Dehydrogenase Total Creatine Kinase CK-MB (CK-2) Rel Index Troponin T C-Reactive Protein Total Protein Albumin Prealbumin LDL Cholesterol Direct HDL Cholesterol Arterial Blood Glucose Arterial Blood Ionized Calcium Urine WBC (Auto) 03/08/20 03/08/20 03/08/20 05:35 06:43 06:43 WBC 28.9 H RBC 3.53 L Hgb 9.7 L Hct 30.3 L MCV MCH RDW 15.6 H Plt Count 578 H Lymph % (Auto) [place] % (Auto) Lymph # (Auto) [place] # (Auto) Seg Neutrophils % Seg Neuts % (Manual) 93.0 H Lymphocytes % (Manual) 4.0 L Monocytes % (Manual) Basophils % (Manual) Seg Neutrophils # Seg Neutrophils # Man 26.9 H Lymphocytes # (Manual) Monocytes # (Manual) Eosinophils # (Manual) Basophils # (Manual) PT INR D-Dimer ABG pH POC ABG pCO2 POC ABG pO2 ABG pO2 ABG HCO3 ABG O2 Saturation ABG Base Excess ABG Hemoglobin ABG Oxyhemoglobin ABG Potassium ABG Glucose Oxyhemoglobin Carboxyhemoglobin Sodium 146 H Potassium Chloride Carbon Dioxide 35 H BUN 34 H Creatinine 0.3 L D Glucose 125 H POC Glucose 147 H Calcium Ferritin Total Bilirubin Alkaline Phosphatase Lactate Dehydrogenase Total Creatine Kinase CK-MB (CK-2) Rel Index Troponin T C-Reactive Protein Total Protein 5.9 L Albumin 3.2 L Prealbumin LDL Cholesterol Direct HDL Cholesterol Arterial Blood Glucose Arterial Blood Ionized Calcium Urine WBC (Auto) 03/08/20 03/08/20 03/08/20 08:57 11:14 12:34 WBC RBC Hgb Hct MCV MCH RDW Plt Count Lymph % (Auto) [place] % (Auto) Lymph # (Auto) [place] # (Auto) Seg Neutrophils % Seg Neuts % (Manual) Lymphocytes % (Manual) Monocytes % (Manual) Basophils % (Manual) Seg Neutrophils # Seg Neutrophils # Man Lymphocytes # (Manual) Monocytes # (Manual) Eosinophils # (Manual) Basophils # (Manual) PT INR D-Dimer ABG pH POC ABG pCO2 63.1 H POC ABG pO2 ABG pO2 ABG HCO3 ABG O2 Saturation ABG Base Excess ABG Hemoglobin 10.9 L ABG Oxyhemoglobin ABG Potassium ABG Glucose 176 H Oxyhemoglobin Carboxyhemoglobin Sodium Potassium Chloride Carbon Dioxide BUN Creatinine Glucose POC Glucose 171 H Calcium Ferritin Total Bilirubin Alkaline Phosphatase Lactate Dehydrogenase Total Creatine Kinase CK-MB (CK-2) Rel Index Troponin T C-Reactive Protein Total Protein Albumin Prealbumin LDL Cholesterol Direct HDL Cholesterol Arterial Blood Glucose 176 H Arterial Blood Ionized Calcium 4.5 L Urine WBC (Auto) 10.0 H 03/08/20 03/08/20 03/09/20 18:02 23:43 05:49 WBC RBC Hgb Hct MCV MCH RDW Plt Count Lymph % (Auto) [place] % (Auto) Lymph # (Auto) [place] # (Auto) Seg Neutrophils % Seg Neuts % (Manual) Lymphocytes % (Manual) Monocytes % (Manual) Basophils % (Manual) Seg Neutrophils # Seg Neutrophils # Man Lymphocytes # (Manual) Monocytes # (Manual) Eosinophils # (Manual) Basophils # (Manual) PT INR D-Dimer ABG pH POC ABG pCO2 POC ABG pO2 ABG pO2 ABG HCO3 ABG O2 Saturation ABG Base Excess ABG Hemoglobin ABG Oxyhemoglobin ABG Potassium ABG Glucose Oxyhemoglobin Carboxyhemoglobin Sodium Potassium Chloride Carbon Dioxide BUN Creatinine Glucose POC Glucose 157 H 134 H 163 H Calcium Ferritin Total Bilirubin Alkaline Phosphatase Lactate Dehydrogenase Total Creatine Kinase CK-MB (CK-2) Rel Index Troponin T C-Reactive Protein Total Protein Albumin Prealbumin LDL Cholesterol Direct HDL Cholesterol Arterial Blood Glucose Arterial Blood Ionized Calcium Urine WBC (Auto) 03/09/20 03/09/20 03/09/20 08:35 08:35 12:11 WBC 23.4 H RBC 3.36 L Hgb 9.3 L Hct 28.8 L MCV MCH RDW 15.9 H Plt Count 521 H Lymph % (Auto) [place] % (Auto) Lymph # (Auto) [place] # (Auto) Seg Neutrophils % Seg Neuts % (Manual) 87.0 H Lymphocytes % (Manual) 4.0 L Monocytes % (Manual) 9.0 H Basophils % (Manual) Seg Neutrophils # Seg Neutrophils # Man 20.4 H Lymphocytes # (Manual) 0.9 L Monocytes # (Manual) 2.1 H Eosinophils # (Manual) Basophils # (Manual) PT INR D-Dimer ABG pH POC ABG pCO2 POC ABG pO2 ABG pO2 ABG HCO3 ABG O2 Saturation ABG Base Excess ABG Hemoglobin ABG Oxyhemoglobin ABG Potassium ABG Glucose Oxyhemoglobin Carboxyhemoglobin Sodium 147 H Potassium Chloride Carbon Dioxide 37 H BUN 63 H Creatinine Glucose 154 H POC Glucose 128 H Calcium Ferritin Total Bilirubin Alkaline Phosphatase Lactate Dehydrogenase Total Creatine Kinase CK-MB (CK-2) Rel Index Troponin T C-Reactive Protein Total Protein Albumin Prealbumin LDL Cholesterol Direct HDL Cholesterol Arterial Blood Glucose Arterial Blood Ionized Calcium Urine WBC (Auto) 03/09/20 03/10/20 03/10/20 17:51 00:25 05:41 WBC RBC Hgb Hct MCV MCH RDW Plt Count Lymph % (Auto) [place] % (Auto) Lymph # (Auto) [place] # (Auto) Seg Neutrophils % Seg Neuts % (Manual) Lymphocytes % (Manual) Monocytes % (Manual) Basophils % (Manual) Seg Neutrophils # Seg Neutrophils # Man Lymphocytes # (Manual) Monocytes # (Manual) Eosinophils # (Manual) Basophils # (Manual) PT INR D-Dimer ABG pH POC ABG pCO2 POC ABG pO2 ABG pO2 ABG HCO3 ABG O2 Saturation ABG Base Excess ABG Hemoglobin ABG Oxyhemoglobin ABG Potassium ABG Glucose Oxyhemoglobin Carboxyhemoglobin Sodium Potassium Chloride Carbon Dioxide BUN Creatinine Glucose POC Glucose 127 H 128 H 153 H Calcium Ferritin Total Bilirubin Alkaline Phosphatase Lactate Dehydrogenase Total Creatine Kinase CK-MB (CK-2) Rel Index Troponin T C-Reactive Protein Total Protein Albumin Prealbumin LDL Cholesterol Direct HDL Cholesterol Arterial Blood Glucose Arterial Blood Ionized Calcium Urine WBC (Auto) 03/10/20 03/10/20 03/10/20 06:14 06:14 12:02 WBC 18.3 H RBC 3.45 L Hgb 9.5 L Hct 29.5 L MCV MCH RDW 16.1 H Plt Count 494 H Lymph % (Auto) [place] % (Auto) Lymph # (Auto) [place] # (Auto) Seg Neutrophils % Seg Neuts % (Manual) 95.0 H Lymphocytes % (Manual) 1.0 L Monocytes % (Manual) Basophils % (Manual) Seg Neutrophils # Seg Neutrophils # Man 17.4 H Lymphocytes # (Manual) 0.2 L Monocytes # (Manual) Eosinophils # (Manual) Basophils # (Manual) PT INR D-Dimer ABG pH POC ABG pCO2 POC ABG pO2 ABG pO2 ABG HCO3 ABG O2 Saturation ABG Base Excess ABG Hemoglobin ABG Oxyhemoglobin ABG Potassium ABG Glucose Oxyhemoglobin Carboxyhemoglobin Sodium 149 H Potassium Chloride Carbon Dioxide 35 H BUN 34 H Creatinine 0.2 L D Glucose 177 H POC Glucose 151 H Calcium Ferritin Total Bilirubin Alkaline Phosphatase Lactate Dehydrogenase Total Creatine Kinase CK-MB (CK-2) Rel Index Troponin T C-Reactive Protein Total Protein Albumin Prealbumin LDL Cholesterol Direct HDL Cholesterol Arterial Blood Glucose Arterial Blood Ionized Calcium Urine WBC (Auto) 03/10/20 03/10/20 03/11/20 17:41 23:53 05:02 WBC RBC Hgb Hct MCV MCH RDW Plt Count Lymph % (Auto) [place] % (Auto) Lymph # (Auto) [place] # (Auto) Seg Neutrophils % Seg Neuts % (Manual) Lymphocytes % (Manual) Monocytes % (Manual) Basophils % (Manual) Seg Neutrophils # Seg Neutrophils # Man Lymphocytes # (Manual) Monocytes # (Manual) Eosinophils # (Manual) Basophils # (Manual) PT INR D-Dimer ABG pH POC ABG pCO2 POC ABG pO2 ABG pO2 ABG HCO3 ABG O2 Saturation ABG Base Excess ABG Hemoglobin ABG Oxyhemoglobin ABG Potassium ABG Glucose Oxyhemoglobin Carboxyhemoglobin Sodium Potassium Chloride Carbon Dioxide BUN Creatinine Glucose POC Glucose 168 H 142 H 146 H Calcium Ferritin Total Bilirubin Alkaline Phosphatase Lactate Dehydrogenase Total Creatine Kinase CK-MB (CK-2) Rel Index Troponin T C-Reactive Protein Total Protein Albumin Prealbumin LDL Cholesterol Direct HDL Cholesterol Arterial Blood Glucose Arterial Blood Ionized Calcium Urine WBC (Auto) 03/11/20 03/11/20 03/11/20 11:30 14:01 14:01 WBC 19.7 H RBC 3.04 L Hgb 8.7 L Hct 25.8 L MCV MCH RDW 15.6 H Plt Count Lymph % (Auto) [place] % (Auto) Lymph # (Auto) [place] # (Auto) Seg Neutrophils % Seg Neuts % (Manual) Lymphocytes % (Manual) Monocytes % (Manual) Basophils % (Manual) Seg Neutrophils # Seg Neutrophils # Man Lymphocytes # (Manual) Monocytes # (Manual) Eosinophils # (Manual) Basophils # (Manual) PT INR D-Dimer ABG pH POC ABG pCO2 POC ABG pO2 ABG pO2 ABG HCO3 ABG O2 Saturation ABG Base Excess ABG Hemoglobin ABG Oxyhemoglobin ABG Potassium ABG Glucose Oxyhemoglobin Carboxyhemoglobin Sodium 151 H Potassium Chloride Carbon Dioxide 37 H BUN Creatinine < 0.2 L Glucose 171 H POC Glucose 248 H Calcium Ferritin Total Bilirubin Alkaline Phosphatase Lactate Dehydrogenase Total Creatine Kinase CK-MB (CK-2) Rel Index Troponin T C-Reactive Protein Total Protein Albumin Prealbumin LDL Cholesterol Direct HDL Cholesterol Arterial Blood Glucose Arterial Blood Ionized Calcium Urine WBC (Auto) 03/11/20 03/11/20 03/12/20 17:09 23:52 04:39 WBC 19.9 H RBC 3.16 L Hgb 8.9 L Hct 27.5 L MCV MCH RDW 15.7 H Plt Count Lymph % (Auto) 6.8 L [place] % (Auto) Lymph # (Auto) [place] # (Auto) 1.2 H Seg Neutrophils % 86.0 H Seg Neuts % (Manual) Lymphocytes % (Manual) Monocytes % (Manual) Basophils % (Manual) Seg Neutrophils # 17.1 H Seg Neutrophils # Man Lymphocytes # (Manual) Monocytes # (Manual) Eosinophils # (Manual) Basophils # (Manual) PT INR D-Dimer ABG pH POC ABG pCO2 POC ABG pO2 ABG pO2 ABG HCO3 ABG O2 Saturation ABG Base Excess ABG Hemoglobin ABG Oxyhemoglobin ABG Potassium ABG Glucose Oxyhemoglobin Carboxyhemoglobin Sodium Potassium Chloride Carbon Dioxide BUN Creatinine Glucose POC Glucose 124 H 131 H Calcium Ferritin Total Bilirubin Alkaline Phosphatase Lactate Dehydrogenase Total Creatine Kinase CK-MB (CK-2) Rel Index Troponin T C-Reactive Protein Total Protein Albumin Prealbumin LDL Cholesterol Direct HDL Cholesterol Arterial Blood Glucose Arterial Blood Ionized Calcium Urine WBC (Auto) 03/12/20 03/12/20 03/12/20 04:39 05:28 11:34 WBC RBC Hgb Hct MCV MCH RDW Plt Count Lymph % (Auto) [place] % (Auto) Lymph # (Auto) [place] # (Auto) Seg Neutrophils % Seg Neuts % (Manual) Lymphocytes % (Manual) Monocytes % (Manual) Basophils % (Manual) Seg Neutrophils # Seg Neutrophils # Man Lymphocytes # (Manual) Monocytes # (Manual) Eosinophils # (Manual) Basophils # (Manual) PT INR D-Dimer ABG pH POC ABG pCO2 POC ABG pO2 ABG pO2 ABG HCO3 ABG O2 Saturation ABG Base Excess ABG Hemoglobin ABG Oxyhemoglobin ABG Potassium ABG Glucose Oxyhemoglobin Carboxyhemoglobin Sodium 147 H Potassium Chloride Carbon Dioxide 40 H BUN Creatinine < 0.2 L Glucose 175 H POC Glucose 167 H 144 H Calcium Ferritin Total Bilirubin Alkaline Phosphatase Lactate Dehydrogenase Total Creatine Kinase CK-MB (CK-2) Rel Index Troponin T C-Reactive Protein Total Protein Albumin Prealbumin LDL Cholesterol Direct HDL Cholesterol Arterial Blood Glucose Arterial Blood Ionized Calcium Urine WBC (Auto) 03/12/20 03/12/20 03/13/20 17:32 23:57 05:57 WBC RBC Hgb Hct MCV MCH RDW Plt Count Lymph % (Auto) [place] % (Auto) Lymph # (Auto) [place] # (Auto) Seg Neutrophils % Seg Neuts % (Manual) Lymphocytes % (Manual) Monocytes % (Manual) Basophils % (Manual) Seg Neutrophils # Seg Neutrophils # Man Lymphocytes # (Manual) Monocytes # (Manual) Eosinophils # (Manual) Basophils # (Manual) PT INR D-Dimer ABG pH POC ABG pCO2 POC ABG pO2 ABG pO2 ABG HCO3 ABG O2 Saturation ABG Base Excess ABG Hemoglobin ABG Oxyhemoglobin ABG Potassium ABG Glucose Oxyhemoglobin Carboxyhemoglobin Sodium Potassium Chloride Carbon Dioxide BUN Creatinine Glucose POC Glucose 141 H 137 H 161 H Calcium Ferritin Total Bilirubin Alkaline Phosphatase Lactate Dehydrogenase Total Creatine Kinase CK-MB (CK-2) Rel Index Troponin T C-Reactive Protein Total Protein Albumin Prealbumin LDL Cholesterol Direct HDL Cholesterol Arterial Blood Glucose Arterial Blood Ionized Calcium Urine WBC (Auto) 03/13/20 03/13/20 03/13/20 12:28 14:14 18:39 WBC RBC Hgb Hct MCV MCH RDW Plt Count Lymph % (Auto) [place] % (Auto) Lymph # (Auto) [place] # (Auto) Seg Neutrophils % Seg Neuts % (Manual) Lymphocytes % (Manual) Monocytes % (Manual) Basophils % (Manual) Seg Neutrophils # Seg Neutrophils # Man Lymphocytes # (Manual) Monocytes # (Manual) Eosinophils # (Manual) Basophils # (Manual) PT INR D-Dimer ABG pH POC ABG pCO2 POC ABG pO2 ABG pO2 ABG HCO3 ABG O2 Saturation ABG Base Excess ABG Hemoglobin ABG Oxyhemoglobin ABG Potassium ABG Glucose Oxyhemoglobin Carboxyhemoglobin Sodium Potassium Chloride Carbon Dioxide 39 H BUN Creatinine < 0.2 L Glucose 129 H POC Glucose 130 H 125 H Calcium Ferritin Total Bilirubin Alkaline Phosphatase Lactate Dehydrogenase Total Creatine Kinase CK-MB (CK-2) Rel Index Troponin T C-Reactive Protein Total Protein Albumin Prealbumin LDL Cholesterol Direct HDL Cholesterol Arterial Blood Glucose Arterial Blood Ionized Calcium Urine WBC (Auto) 03/13/20 03/14/20 03/14/20 23:33 05:24 08:07 WBC 16.8 H RBC 2.81 L Hgb 7.9 L Hct 23.9 L MCV MCH RDW 15.9 H Plt Count Lymph % (Auto) [place] % (Auto) Lymph # (Auto) [place] # (Auto) Seg Neutrophils % Seg Neuts % (Manual) 84.0 H Lymphocytes % (Manual) 10.0 L Monocytes % (Manual) Basophils % (Manual) Seg Neutrophils # Seg Neutrophils # Man 14.1 H Lymphocytes # (Manual) Monocytes # (Manual) Eosinophils # (Manual) Basophils # (Manual) PT INR D-Dimer ABG pH POC ABG pCO2 POC ABG pO2 ABG pO2 ABG HCO3 ABG O2 Saturation ABG Base Excess ABG Hemoglobin ABG Oxyhemoglobin ABG Potassium ABG Glucose Oxyhemoglobin Carboxyhemoglobin Sodium Potassium Chloride Carbon Dioxide BUN Creatinine Glucose POC Glucose 146 H 125 H Calcium Ferritin Total Bilirubin Alkaline Phosphatase Lactate Dehydrogenase Total Creatine Kinase CK-MB (CK-2) Rel Index Troponin T C-Reactive Protein Total Protein Albumin Prealbumin LDL Cholesterol Direct HDL Cholesterol Arterial Blood Glucose Arterial Blood Ionized Calcium Urine WBC (Auto) 03/14/20 03/14/20 03/14/20 08:07 12:21 18:26 WBC RBC Hgb Hct MCV MCH RDW Plt Count Lymph % (Auto) [place] % (Auto) Lymph # (Auto) [place] # (Auto) Seg Neutrophils % Seg Neuts % (Manual) Lymphocytes % (Manual) Monocytes % (Manual) Basophils % (Manual) Seg Neutrophils # Seg Neutrophils # Man Lymphocytes # (Manual) Monocytes # (Manual) Eosinophils # (Manual) Basophils # (Manual) PT INR D-Dimer ABG pH POC ABG pCO2 POC ABG pO2 ABG pO2 ABG HCO3 ABG O2 Saturation ABG Base Excess ABG Hemoglobin ABG Oxyhemoglobin ABG Potassium ABG Glucose Oxyhemoglobin Carboxyhemoglobin Sodium Potassium Chloride 97.0 L Carbon Dioxide 37 H BUN Creatinine < 0.2 L Glucose 129 H POC Glucose 109 H 142 H Calcium 8.3 L Ferritin Total Bilirubin Alkaline Phosphatase Lactate Dehydrogenase Total Creatine Kinase CK-MB (CK-2) Rel Index Troponin T C-Reactive Protein Total Protein Albumin Prealbumin LDL Cholesterol Direct HDL Cholesterol Arterial Blood Glucose Arterial Blood Ionized Calcium Urine WBC (Auto) 03/14/20 03/15/20 03/15/20 23:57 05:46 08:06 WBC 19.7 H RBC 3.29 L Hgb 9.1 L Hct 28.0 L MCV MCH RDW 15.9 H Plt Count Lymph % (Auto) [place] % (Auto) Lymph # (Auto) [place] # (Auto) Seg Neutrophils % Seg Neuts % (Manual) Lymphocytes % (Manual) Monocytes % (Manual) Basophils % (Manual) Seg Neutrophils # Seg Neutrophils # Man Lymphocytes # (Manual) Monocytes # (Manual) Eosinophils # (Manual) Basophils # (Manual) PT INR D-Dimer ABG pH POC ABG pCO2 POC ABG pO2 ABG pO2 ABG HCO3 ABG O2 Saturation ABG Base Excess ABG Hemoglobin ABG Oxyhemoglobin ABG Potassium ABG Glucose Oxyhemoglobin Carboxyhemoglobin Sodium Potassium Chloride Carbon Dioxide BUN Creatinine Glucose POC Glucose 157 H 118 H Calcium Ferritin Total Bilirubin Alkaline Phosphatase Lactate Dehydrogenase Total Creatine Kinase CK-MB (CK-2) Rel Index Troponin T C-Reactive Protein Total Protein Albumin Prealbumin LDL Cholesterol Direct HDL Cholesterol Arterial Blood Glucose Arterial Blood Ionized Calcium Urine WBC (Auto) 03/15/20 03/15/20 03/15/20 08:06 12:44 18:09 WBC RBC Hgb Hct MCV MCH RDW Plt Count Lymph % (Auto) [place] % (Auto) Lymph # (Auto) [place] # (Auto) Seg Neutrophils % Seg Neuts % (Manual) Lymphocytes % (Manual) Monocytes % (Manual) Basophils % (Manual) Seg Neutrophils # Seg Neutrophils # Man Lymphocytes # (Manual) Monocytes # (Manual) Eosinophils # (Manual) Basophils # (Manual) PT INR D-Dimer ABG pH POC ABG pCO2 POC ABG pO2 ABG pO2 ABG HCO3 ABG O2 Saturation ABG Base Excess ABG Hemoglobin ABG Oxyhemoglobin ABG Potassium ABG Glucose Oxyhemoglobin Carboxyhemoglobin Sodium 136 L Potassium Chloride 93.6 L Carbon Dioxide 37 H BUN Creatinine < 0.2 L Glucose 132 H POC Glucose 151 H 164 H Calcium Ferritin Total Bilirubin Alkaline Phosphatase Lactate Dehydrogenase Total Creatine Kinase CK-MB (CK-2) Rel Index Troponin T C-Reactive Protein Total Protein Albumin Prealbumin LDL Cholesterol Direct HDL Cholesterol Arterial Blood Glucose Arterial Blood Ionized Calcium Urine WBC (Auto) 03/15/20 03/16/20 03/16/20 23:26 05:39 11:58 WBC RBC Hgb Hct MCV MCH RDW Plt Count Lymph % (Auto) [place] % (Auto) Lymph # (Auto) [place] # (Auto) Seg Neutrophils % Seg Neuts % (Manual) Lymphocytes % (Manual) Monocytes % (Manual) Basophils % (Manual) Seg Neutrophils # Seg Neutrophils # Man Lymphocytes # (Manual) Monocytes # (Manual) Eosinophils # (Manual) Basophils # (Manual) PT INR D-Dimer ABG pH POC ABG pCO2 POC ABG pO2 ABG pO2 ABG HCO3 ABG O2 Saturation ABG Base Excess ABG Hemoglobin ABG Oxyhemoglobin ABG Potassium ABG Glucose Oxyhemoglobin Carboxyhemoglobin Sodium Potassium Chloride Carbon Dioxide BUN Creatinine Glucose POC Glucose 136 H 116 H 109 H Calcium Ferritin Total Bilirubin Alkaline Phosphatase Lactate Dehydrogenase Total Creatine Kinase CK-MB (CK-2) Rel Index Troponin T C-Reactive Protein Total Protein Albumin Prealbumin LDL Cholesterol Direct HDL Cholesterol Arterial Blood Glucose Arterial Blood Ionized Calcium Urine WBC (Auto) 03/16/20 03/17/20 03/17/20 23:56 04:40 04:40 WBC 18.0 H RBC 3.33 L Hgb 9.5 L Hct 28.8 L MCV MCH RDW 16.4 H Plt Count 499 H Lymph % (Auto) [place] % (Auto) Lymph # (Auto) [place] # (Auto) Seg Neutrophils % Seg Neuts % (Manual) 82.0 H Lymphocytes % (Manual) 8.0 L Monocytes % (Manual) Basophils % (Manual) Seg Neutrophils # Seg Neutrophils # Man 14.8 H Lymphocytes # (Manual) Monocytes # (Manual) 1.3 H Eosinophils # (Manual) Basophils # (Manual) 0.2 H PT INR D-Dimer ABG pH POC ABG pCO2 POC ABG pO2 ABG pO2 ABG HCO3 ABG O2 Saturation ABG Base Excess ABG Hemoglobin ABG Oxyhemoglobin ABG Potassium ABG Glucose Oxyhemoglobin Carboxyhemoglobin Sodium Potassium Chloride 97.7 L Carbon Dioxide 32 H BUN Creatinine < 0.2 L Glucose 114 H POC Glucose 131 H Calcium Ferritin Total Bilirubin Alkaline Phosphatase Lactate Dehydrogenase Total Creatine Kinase CK-MB (CK-2) Rel Index Troponin T C-Reactive Protein Total Protein Albumin Prealbumin LDL Cholesterol Direct HDL Cholesterol Arterial Blood Glucose Arterial Blood Ionized Calcium Urine WBC (Auto) 03/18/20 03/18/20 03/18/20 00:21 05:21 11:55 WBC RBC Hgb Hct MCV MCH RDW Plt Count Lymph % (Auto) [place] % (Auto) Lymph # (Auto) [place] # (Auto) Seg Neutrophils % Seg Neuts % (Manual) Lymphocytes % (Manual) Monocytes % (Manual) Basophils % (Manual) Seg Neutrophils # Seg Neutrophils # Man Lymphocytes # (Manual) Monocytes # (Manual) Eosinophils # (Manual) Basophils # (Manual) PT INR D-Dimer ABG pH POC ABG pCO2 POC ABG pO2 ABG pO2 ABG HCO3 ABG O2 Saturation ABG Base Excess ABG Hemoglobin ABG Oxyhemoglobin ABG Potassium ABG Glucose Oxyhemoglobin Carboxyhemoglobin Sodium Potassium Chloride Carbon Dioxide BUN Creatinine Glucose POC Glucose 124 H 138 H 119 H Calcium Ferritin Total Bilirubin Alkaline Phosphatase Lactate Dehydrogenase Total Creatine Kinase CK-MB (CK-2) Rel Index Troponin T C-Reactive Protein Total Protein Albumin Prealbumin LDL Cholesterol Direct HDL Cholesterol Arterial Blood Glucose Arterial Blood Ionized Calcium Urine WBC (Auto) 03/18/20 03/18/20 03/19/20 17:03 23:58 05:24 WBC RBC Hgb Hct MCV MCH RDW Plt Count Lymph % (Auto) [place] % (Auto) Lymph # (Auto) [place] # (Auto) Seg Neutrophils % Seg Neuts % (Manual) Lymphocytes % (Manual) Monocytes % (Manual) Basophils % (Manual) Seg Neutrophils # Seg Neutrophils # Man Lymphocytes # (Manual) Monocytes # (Manual) Eosinophils # (Manual) Basophils # (Manual) PT INR D-Dimer ABG pH POC ABG pCO2 POC ABG pO2 ABG pO2 ABG HCO3 ABG O2 Saturation ABG Base Excess ABG Hemoglobin ABG Oxyhemoglobin ABG Potassium ABG Glucose Oxyhemoglobin Carboxyhemoglobin Sodium Potassium Chloride Carbon Dioxide BUN Creatinine Glucose POC Glucose 128 H 128 H 115 H Calcium Ferritin Total Bilirubin Alkaline Phosphatase Lactate Dehydrogenase Total Creatine Kinase CK-MB (CK-2) Rel Index Troponin T C-Reactive Protein Total Protein Albumin Prealbumin LDL Cholesterol Direct HDL Cholesterol Arterial Blood Glucose Arterial Blood Ionized Calcium Urine WBC (Auto) 03/19/20 03/19/20 03/19/20 08:05 08:05 11:56 WBC 16.8 H RBC 3.36 L Hgb 9.4 L Hct 28.8 L MCV MCH RDW 17.4 H Plt Count 567 H Lymph % (Auto) 7.8 L [place] % (Auto) Lymph # (Auto) [place] # (Auto) 1.2 H Seg Neutrophils % 83.5 H Seg Neuts % (Manual) Lymphocytes % (Manual) Monocytes % (Manual) Basophils % (Manual) Seg Neutrophils # 14.1 H Seg Neutrophils # Man Lymphocytes # (Manual) Monocytes # (Manual) Eosinophils # (Manual) Basophils # (Manual) PT INR D-Dimer ABG pH POC ABG pCO2 POC ABG pO2 ABG pO2 ABG HCO3 ABG O2 Saturation ABG Base Excess ABG Hemoglobin ABG Oxyhemoglobin ABG Potassium ABG Glucose Oxyhemoglobin Carboxyhemoglobin Sodium Potassium Chloride Carbon Dioxide 36 H BUN Creatinine < 0.2 L Glucose 135 H POC Glucose 128 H Calcium Ferritin Total Bilirubin Alkaline Phosphatase Lactate Dehydrogenase Total Creatine Kinase CK-MB (CK-2) Rel Index Troponin T C-Reactive Protein Total Protein Albumin Prealbumin LDL Cholesterol Direct HDL Cholesterol Arterial Blood Glucose Arterial Blood Ionized Calcium Urine WBC (Auto) 03/19/20 03/20/20 03/20/20 23:59 05:12 16:52 WBC RBC Hgb Hct MCV MCH RDW Plt Count Lymph % (Auto) [place] % (Auto) Lymph # (Auto) [place] # (Auto) Seg Neutrophils % Seg Neuts % (Manual) Lymphocytes % (Manual) Monocytes % (Manual) Basophils % (Manual) Seg Neutrophils # Seg Neutrophils # Man Lymphocytes # (Manual) Monocytes # (Manual) Eosinophils # (Manual) Basophils # (Manual) PT INR D-Dimer ABG pH POC ABG pCO2 POC ABG pO2 ABG pO2 ABG HCO3 ABG O2 Saturation ABG Base Excess ABG Hemoglobin ABG Oxyhemoglobin ABG Potassium ABG Glucose Oxyhemoglobin Carboxyhemoglobin Sodium Potassium Chloride Carbon Dioxide BUN Creatinine Glucose POC Glucose 120 H 131 H 124 H Calcium Ferritin Total Bilirubin Alkaline Phosphatase Lactate Dehydrogenase Total Creatine Kinase CK-MB (CK-2) Rel Index Troponin T C-Reactive Protein Total Protein Albumin Prealbumin LDL Cholesterol Direct HDL Cholesterol Arterial Blood Glucose Arterial Blood Ionized Calcium Urine WBC (Auto) 03/20/20 03/21/20 03/21/20 23:35 04:50 07:35 WBC 15.2 H RBC 3.39 L Hgb 9.4 L Hct 29.4 L MCV MCH RDW 17.6 H Plt Count 518 H Lymph % (Auto) [place] % (Auto) Lymph # (Auto) [place] # (Auto) Seg Neutrophils % Seg Neuts % (Manual) 83.0 H Lymphocytes % (Manual) 10.0 L Monocytes % (Manual) Basophils % (Manual) 2.0 H Seg Neutrophils # Seg Neutrophils # Man 12.6 H Lymphocytes # (Manual) Monocytes # (Manual) Eosinophils # (Manual) Basophils # (Manual) 0.3 H PT INR D-Dimer ABG pH POC ABG pCO2 POC ABG pO2 ABG pO2 ABG HCO3 ABG O2 Saturation ABG Base Excess ABG Hemoglobin ABG Oxyhemoglobin ABG Potassium ABG Glucose Oxyhemoglobin Carboxyhemoglobin Sodium Potassium Chloride Carbon Dioxide BUN Creatinine Glucose POC Glucose 125 H 127 H Calcium Ferritin Total Bilirubin Alkaline Phosphatase Lactate Dehydrogenase Total Creatine Kinase CK-MB (CK-2) Rel Index Troponin T C-Reactive Protein Total Protein Albumin Prealbumin LDL Cholesterol Direct HDL Cholesterol Arterial Blood Glucose Arterial Blood Ionized Calcium Urine WBC (Auto) 03/21/20 03/21/20 03/21/20 07:35 11:45 17:22 WBC RBC Hgb Hct MCV MCH RDW Plt Count Lymph % (Auto) [place] % (Auto) Lymph # (Auto) [place] # (Auto) Seg Neutrophils % Seg Neuts % (Manual) Lymphocytes % (Manual) Monocytes % (Manual) Basophils % (Manual) Seg Neutrophils # Seg Neutrophils # Man Lymphocytes # (Manual) Monocytes # (Manual) Eosinophils # (Manual) Basophils # (Manual) PT INR D-Dimer ABG pH POC ABG pCO2 POC ABG pO2 ABG pO2 ABG HCO3 ABG O2 Saturation ABG Base Excess ABG Hemoglobin ABG Oxyhemoglobin ABG Potassium ABG Glucose Oxyhemoglobin Carboxyhemoglobin Sodium 136 L Potassium Chloride 97.7 L Carbon Dioxide 32 H BUN Creatinine < 0.2 L Glucose 103 H POC Glucose 126 H 120 H Calcium Ferritin Total Bilirubin Alkaline Phosphatase Lactate Dehydrogenase Total Creatine Kinase CK-MB (CK-2) Rel Index Troponin T C-Reactive Protein Total Protein Albumin Prealbumin LDL Cholesterol Direct HDL Cholesterol Arterial Blood Glucose Arterial Blood Ionized Calcium Urine WBC (Auto) 03/22/20 03/22/20 03/22/20 05:09 06:34 06:34 WBC 17.5 H RBC 3.52 L Hgb 10.0 L Hct 30.7 L MCV MCH RDW 17.5 H Plt Count 499 H Lymph % (Auto) [place] % (Auto) Lymph # (Auto) [place] # (Auto) Seg Neutrophils % Seg Neuts % (Manual) 80.0 H Lymphocytes % (Manual) 10.0 L Monocytes % (Manual) Basophils % (Manual) Seg Neutrophils # Seg Neutrophils # Man 14.0 H Lymphocytes # (Manual) Monocytes # (Manual) Eosinophils # (Manual) Basophils # (Manual) PT INR D-Dimer ABG pH POC ABG pCO2 POC ABG pO2 ABG pO2 ABG HCO3 ABG O2 Saturation ABG Base Excess ABG Hemoglobin ABG Oxyhemoglobin ABG Potassium ABG Glucose Oxyhemoglobin Carboxyhemoglobin Sodium Potassium Chloride 96.6 L Carbon Dioxide 38 H BUN Creatinine < 0.2 L Glucose 139 H POC Glucose 125 H Calcium Ferritin Total Bilirubin Alkaline Phosphatase Lactate Dehydrogenase Total Creatine Kinase CK-MB (CK-2) Rel Index Troponin T C-Reactive Protein Total Protein Albumin Prealbumin LDL Cholesterol Direct HDL Cholesterol Arterial Blood Glucose Arterial Blood Ionized Calcium Urine WBC (Auto) 03/22/20 03/22/20 03/22/20 11:45 18:00 23:32 WBC RBC Hgb Hct MCV MCH RDW Plt Count Lymph % (Auto) [place] % (Auto) Lymph # (Auto) [place] # (Auto) Seg Neutrophils % Seg Neuts % (Manual) Lymphocytes % (Manual) Monocytes % (Manual) Basophils % (Manual) Seg Neutrophils # Seg Neutrophils # Man Lymphocytes # (Manual) Monocytes # (Manual) Eosinophils # (Manual) Basophils # (Manual) PT INR D-Dimer ABG pH POC ABG pCO2 POC ABG pO2 ABG pO2 ABG HCO3 ABG O2 Saturation ABG Base Excess ABG Hemoglobin ABG Oxyhemoglobin ABG Potassium ABG Glucose Oxyhemoglobin Carboxyhemoglobin Sodium Potassium Chloride Carbon Dioxide BUN Creatinine Glucose POC Glucose 135 H 133 H Calcium Ferritin Total Bilirubin Alkaline Phosphatase Lactate Dehydrogenase Total Creatine Kinase CK-MB (CK-2) Rel Index Troponin T 0.113 H* C-Reactive Protein Total Protein Albumin Prealbumin LDL Cholesterol Direct HDL Cholesterol Arterial Blood Glucose Arterial Blood Ionized Calcium Urine WBC (Auto) 03/23/20 03/23/20 03/23/20 01:47 06:21 07:57 WBC RBC Hgb Hct MCV MCH RDW Plt Count Lymph % (Auto) [place] % (Auto) Lymph # (Auto) [place] # (Auto) Seg Neutrophils % Seg Neuts % (Manual) Lymphocytes % (Manual) Monocytes % (Manual) Basophils % (Manual) Seg Neutrophils # Seg Neutrophils # Man Lymphocytes # (Manual) Monocytes # (Manual) Eosinophils # (Manual) Basophils # (Manual) PT INR D-Dimer ABG pH POC ABG pCO2 POC ABG pO2 ABG pO2 ABG HCO3 ABG O2 Saturation ABG Base Excess ABG Hemoglobin ABG Oxyhemoglobin ABG Potassium ABG Glucose Oxyhemoglobin Carboxyhemoglobin Sodium Potassium Chloride Carbon Dioxide BUN Creatinine Glucose POC Glucose 130 H Calcium Ferritin Total Bilirubin Alkaline Phosphatase Lactate Dehydrogenase Total Creatine Kinase CK-MB (CK-2) Rel Index Troponin T 0.143 H* D 0.105 H* D C-Reactive Protein Total Protein Albumin Prealbumin LDL Cholesterol Direct HDL Cholesterol Arterial Blood Glucose Arterial Blood Ionized Calcium Urine WBC (Auto) 03/23/20 03/24/20 03/24/20 12:02 05:33 07:15 WBC 18.0 H RBC Hgb 11.0 L Hct 34.0 L MCV MCH RDW 17.4 H Plt Count 520 H Lymph % (Auto) [place] % (Auto) Lymph # (Auto) [place] # (Auto) Seg Neutrophils % Seg Neuts % (Manual) 88.0 H Lymphocytes % (Manual) 7.0 L Monocytes % (Manual) Basophils % (Manual) Seg Neutrophils # Seg Neutrophils # Man 15.8 H Lymphocytes # (Manual) Monocytes # (Manual) Eosinophils # (Manual) Basophils # (Manual) PT INR D-Dimer ABG pH POC ABG pCO2 POC ABG pO2 ABG pO2 ABG HCO3 ABG O2 Saturation ABG Base Excess ABG Hemoglobin ABG Oxyhemoglobin ABG Potassium ABG Glucose Oxyhemoglobin Carboxyhemoglobin Sodium Potassium Chloride Carbon Dioxide BUN Creatinine Glucose POC Glucose 137 H 112 H Calcium Ferritin Total Bilirubin Alkaline Phosphatase Lactate Dehydrogenase Total Creatine Kinase CK-MB (CK-2) Rel Index Troponin T C-Reactive Protein Total Protein Albumin Prealbumin LDL Cholesterol Direct HDL Cholesterol Arterial Blood Glucose Arterial Blood Ionized Calcium Urine WBC (Auto) 03/24/20 03/24/20 03/24/20 07:15 11:22 23:30 WBC RBC Hgb Hct MCV MCH RDW Plt Count Lymph % (Auto) [place] % (Auto) Lymph # (Auto) [place] # (Auto) Seg Neutrophils % Seg Neuts % (Manual) Lymphocytes % (Manual) Monocytes % (Manual) Basophils % (Manual) Seg Neutrophils # Seg Neutrophils # Man Lymphocytes # (Manual) Monocytes # (Manual) Eosinophils # (Manual) Basophils # (Manual) PT INR D-Dimer ABG pH POC ABG pCO2 POC ABG pO2 ABG pO2 ABG HCO3 ABG O2 Saturation ABG Base Excess ABG Hemoglobin ABG Oxyhemoglobin ABG Potassium ABG Glucose Oxyhemoglobin Carboxyhemoglobin Sodium Potassium Chloride 96.6 L Carbon Dioxide 38 H BUN Creatinine < 0.2 L Glucose 141 H POC Glucose 130 H 120 H Calcium Ferritin Total Bilirubin Alkaline Phosphatase Lactate Dehydrogenase Total Creatine Kinase CK-MB (CK-2) Rel Index Troponin T C-Reactive Protein Total Protein Albumin Prealbumin LDL Cholesterol Direct HDL Cholesterol Arterial Blood Glucose Arterial Blood Ionized Calcium Urine WBC (Auto) 03/25/20 03/25/20 03/25/20 05:48 17:53 23:18 WBC RBC Hgb Hct MCV MCH RDW Plt Count Lymph % (Auto) [place] % (Auto) Lymph # (Auto) [place] # (Auto) Seg Neutrophils % Seg Neuts % (Manual) Lymphocytes % (Manual) Monocytes % (Manual) Basophils % (Manual) Seg Neutrophils # Seg Neutrophils # Man Lymphocytes # (Manual) Monocytes # (Manual) Eosinophils # (Manual) Basophils # (Manual) PT INR D-Dimer ABG pH POC ABG pCO2 POC ABG pO2 ABG pO2 ABG HCO3 ABG O2 Saturation ABG Base Excess ABG Hemoglobin ABG Oxyhemoglobin ABG Potassium ABG Glucose Oxyhemoglobin Carboxyhemoglobin Sodium Potassium Chloride Carbon Dioxide BUN Creatinine Glucose POC Glucose 124 H 109 H 131 H Calcium Ferritin Total Bilirubin Alkaline Phosphatase Lactate Dehydrogenase Total Creatine Kinase CK-MB (CK-2) Rel Index Troponin T C-Reactive Protein Total Protein Albumin Prealbumin LDL Cholesterol Direct HDL Cholesterol Arterial Blood Glucose Arterial Blood Ionized Calcium Urine WBC (Auto) 03/26/20 03/26/20 03/26/20 05:21 08:49 08:49 WBC 19.7 H RBC Hgb 10.7 L Hct 33.5 L MCV MCH 27 L RDW 17.1 H Plt Count 480 H Lymph % (Auto) 5.7 L [place] % (Auto) Lymph # (Auto) 1.1 L [place] # (Auto) 1.2 H Seg Neutrophils % 87.7 H Seg Neuts % (Manual) Lymphocytes % (Manual) Monocytes % (Manual) Basophils % (Manual) Seg Neutrophils # 17.2 H Seg Neutrophils # Man Lymphocytes # (Manual) Monocytes # (Manual) Eosinophils # (Manual) Basophils # (Manual) PT INR D-Dimer ABG pH POC ABG pCO2 POC ABG pO2 ABG pO2 ABG HCO3 ABG O2 Saturation ABG Base Excess ABG Hemoglobin ABG Oxyhemoglobin ABG Potassium ABG Glucose Oxyhemoglobin Carboxyhemoglobin Sodium Potassium Chloride 97.2 L Carbon Dioxide 36 H BUN Creatinine < 0.2 L Glucose 127 H POC Glucose 116 H Calcium Ferritin Total Bilirubin Alkaline Phosphatase Lactate Dehydrogenase Total Creatine Kinase CK-MB (CK-2) Rel Index Troponin T C-Reactive Protein Total Protein Albumin Prealbumin LDL Cholesterol Direct HDL Cholesterol Arterial Blood Glucose Arterial Blood Ionized Calcium Urine WBC (Auto) 03/26/20 03/26/20 03/26/20 11:38 18:44 23:06 WBC RBC Hgb Hct MCV MCH RDW Plt Count Lymph % (Auto) [place] % (Auto) Lymph # (Auto) [place] # (Auto) Seg Neutrophils % Seg Neuts % (Manual) Lymphocytes % (Manual) Monocytes % (Manual) Basophils % (Manual) Seg Neutrophils # Seg Neutrophils # Man Lymphocytes # (Manual) Monocytes # (Manual) Eosinophils # (Manual) Basophils # (Manual) PT INR D-Dimer ABG pH POC ABG pCO2 POC ABG pO2 ABG pO2 ABG HCO3 ABG O2 Saturation ABG Base Excess ABG Hemoglobin ABG Oxyhemoglobin ABG Potassium ABG Glucose Oxyhemoglobin Carboxyhemoglobin Sodium Potassium Chloride Carbon Dioxide BUN Creatinine Glucose POC Glucose 120 H 111 H 134 H Calcium Ferritin Total Bilirubin Alkaline Phosphatase Lactate Dehydrogenase Total Creatine Kinase CK-MB (CK-2) Rel Index Troponin T C-Reactive Protein Total Protein Albumin Prealbumin LDL Cholesterol Direct HDL Cholesterol Arterial Blood Glucose Arterial Blood Ionized Calcium Urine WBC (Auto) 03/27/20 03/27/20 03/27/20 05:41 05:59 05:59 WBC 18.6 H RBC Hgb 10.1 L Hct 31.4 L MCV MCH RDW 17.2 H Plt Count Lymph % (Auto) 8.0 L [place] % (Auto) Lymph # (Auto) [place] # (Auto) 1.2 H Seg Neutrophils % 84.7 H Seg Neuts % (Manual) Lymphocytes % (Manual) Monocytes % (Manual) Basophils % (Manual) Seg Neutrophils # 15.8 H Seg Neutrophils # Man Lymphocytes # (Manual) Monocytes # (Manual) Eosinophils # (Manual) Basophils # (Manual) PT INR D-Dimer ABG pH POC ABG pCO2 POC ABG pO2 ABG pO2 ABG HCO3 ABG O2 Saturation ABG Base Excess ABG Hemoglobin ABG Oxyhemoglobin ABG Potassium ABG Glucose Oxyhemoglobin Carboxyhemoglobin Sodium Potassium Chloride Carbon Dioxide 34 H BUN Creatinine < 0.2 L Glucose 127 H POC Glucose 129 H Calcium Ferritin Total Bilirubin Alkaline Phosphatase Lactate Dehydrogenase Total Creatine Kinase CK-MB (CK-2) Rel Index Troponin T C-Reactive Protein Total Protein Albumin Prealbumin LDL Cholesterol Direct HDL Cholesterol Arterial Blood Glucose Arterial Blood Ionized Calcium Urine WBC (Auto) 03/27/20 03/27/20 03/28/20 17:28 23:22 05:23 WBC RBC Hgb Hct MCV MCH RDW Plt Count Lymph % (Auto) [place] % (Auto) Lymph # (Auto) [place] # (Auto) Seg Neutrophils % Seg Neuts % (Manual) Lymphocytes % (Manual) Monocytes % (Manual) Basophils % (Manual) Seg Neutrophils # Seg Neutrophils # Man Lymphocytes # (Manual) Monocytes # (Manual) Eosinophils # (Manual) Basophils # (Manual) PT INR D-Dimer ABG pH POC ABG pCO2 POC ABG pO2 ABG pO2 ABG HCO3 ABG O2 Saturation ABG Base Excess ABG Hemoglobin ABG Oxyhemoglobin ABG Potassium ABG Glucose Oxyhemoglobin Carboxyhemoglobin Sodium Potassium Chloride Carbon Dioxide BUN Creatinine Glucose POC Glucose 108 H 119 H 129 H Calcium Ferritin Total Bilirubin Alkaline Phosphatase Lactate Dehydrogenase Total Creatine Kinase CK-MB (CK-2) Rel Index Troponin T C-Reactive Protein Total Protein Albumin Prealbumin LDL Cholesterol Direct HDL Cholesterol Arterial Blood Glucose Arterial Blood Ionized Calcium Urine WBC (Auto) 03/28/20 03/28/20 03/28/20 10:28 10:28 11:36 WBC 23.6 H RBC 3.62 L Hgb 10.0 L Hct 30.8 L MCV MCH RDW 16.4 H Plt Count Lymph % (Auto) [place] % (Auto) Lymph # (Auto) [place] # (Auto) Seg Neutrophils % Seg Neuts % (Manual) 89.0 H Lymphocytes % (Manual) 5.0 L Monocytes % (Manual) Basophils % (Manual) Seg Neutrophils # Seg Neutrophils # Man 21.0 H Lymphocytes # (Manual) Monocytes # (Manual) 1.2 H Eosinophils # (Manual) Basophils # (Manual) 0.2 H PT INR D-Dimer ABG pH POC ABG pCO2 POC ABG pO2 ABG pO2 ABG HCO3 ABG O2 Saturation ABG Base Excess ABG Hemoglobin ABG Oxyhemoglobin ABG Potassium ABG Glucose Oxyhemoglobin Carboxyhemoglobin Sodium 134 L Potassium Chloride 94.2 L Carbon Dioxide 35 H BUN Creatinine < 0.2 L Glucose 134 H POC Glucose Calcium Ferritin Total Bilirubin Alkaline Phosphatase Lactate Dehydrogenase Total Creatine Kinase CK-MB (CK-2) Rel Index Troponin T C-Reactive Protein Total Protein Albumin Prealbumin LDL Cholesterol Direct HDL Cholesterol Arterial Blood Glucose Arterial Blood Ionized Calcium Urine WBC (Auto) 39.0 H 03/28/20 03/28/20 03/28/20 11:51 17:08 17:17 WBC RBC Hgb Hct MCV MCH RDW Plt Count Lymph % (Auto) [place] % (Auto) Lymph # (Auto) [place] # (Auto) Seg Neutrophils % Seg Neuts % (Manual) Lymphocytes % (Manual) Monocytes % (Manual) Basophils % (Manual) Seg Neutrophils # Seg Neutrophils # Man Lymphocytes # (Manual) Monocytes # (Manual) Eosinophils # (Manual) Basophils # (Manual) PT INR D-Dimer ABG pH POC ABG pCO2 POC ABG pO2 ABG pO2 ABG HCO3 ABG O2 Saturation ABG Base Excess ABG Hemoglobin ABG Oxyhemoglobin ABG Potassium ABG Glucose Oxyhemoglobin Carboxyhemoglobin Sodium Potassium Chloride Carbon Dioxide BUN Creatinine Glucose POC Glucose 123 H 112 H Calcium Ferritin Total Bilirubin Alkaline Phosphatase Lactate Dehydrogenase Total Creatine Kinase 47 L CK-MB (CK-2) Rel Index 4.6 H Troponin T 0.090 H C-Reactive Protein Total Protein Albumin Prealbumin LDL Cholesterol Direct HDL Cholesterol Arterial Blood Glucose Arterial Blood Ionized Calcium Urine WBC (Auto) 03/28/20 03/29/20 03/29/20 23:22 05:22 10:58 WBC RBC Hgb Hct MCV MCH RDW Plt Count Lymph % (Auto) [place] % (Auto) Lymph # (Auto) [place] # (Auto) Seg Neutrophils % Seg Neuts % (Manual) Lymphocytes % (Manual) Monocytes % (Manual) Basophils % (Manual) Seg Neutrophils # Seg Neutrophils # Man Lymphocytes # (Manual) Monocytes # (Manual) Eosinophils # (Manual) Basophils # (Manual) PT INR D-Dimer ABG pH POC ABG pCO2 POC ABG pO2 ABG pO2 ABG HCO3 ABG O2 Saturation ABG Base Excess ABG Hemoglobin ABG Oxyhemoglobin ABG Potassium ABG Glucose Oxyhemoglobin Carboxyhemoglobin Sodium Potassium Chloride Carbon Dioxide BUN Creatinine Glucose POC Glucose 122 H 116 H 133 H Calcium Ferritin Total Bilirubin Alkaline Phosphatase Lactate Dehydrogenase Total Creatine Kinase CK-MB (CK-2) Rel Index Troponin T C-Reactive Protein Total Protein Albumin Prealbumin LDL Cholesterol Direct HDL Cholesterol Arterial Blood Glucose Arterial Blood Ionized Calcium Urine WBC (Auto) 03/29/20 03/29/20 03/30/20 17:18 23:14 04:57 WBC RBC Hgb Hct MCV MCH RDW Plt Count Lymph % (Auto) [place] % (Auto) Lymph # (Auto) [place] # (Auto) Seg Neutrophils % Seg Neuts % (Manual) Lymphocytes % (Manual) Monocytes % (Manual) Basophils % (Manual) Seg Neutrophils # Seg Neutrophils # Man Lymphocytes # (Manual) Monocytes # (Manual) Eosinophils # (Manual) Basophils # (Manual) PT INR D-Dimer ABG pH POC ABG pCO2 POC ABG pO2 ABG pO2 ABG HCO3 ABG O2 Saturation ABG Base Excess ABG Hemoglobin ABG Oxyhemoglobin ABG Potassium ABG Glucose Oxyhemoglobin Carboxyhemoglobin Sodium Potassium Chloride Carbon Dioxide BUN Creatinine Glucose POC Glucose 111 H 114 H 130 H Calcium Ferritin Total Bilirubin Alkaline Phosphatase Lactate Dehydrogenase Total Creatine Kinase CK-MB (CK-2) Rel Index Troponin T C-Reactive Protein Total Protein Albumin Prealbumin LDL Cholesterol Direct HDL Cholesterol Arterial Blood Glucose Arterial Blood Ionized Calcium Urine WBC (Auto) 03/30/20 03/30/20 03/30/20 11:38 14:47 14:47 WBC 19.9 H RBC Hgb 10.9 L Hct 34.4 L MCV MCH 27 L RDW 16.5 H Plt Count 441 H Lymph % (Auto) 6.4 L [place] % (Auto) Lymph # (Auto) [place] # (Auto) 1.4 H Seg Neutrophils % 86.1 H Seg Neuts % (Manual) Lymphocytes % (Manual) Monocytes % (Manual) Basophils % (Manual) Seg Neutrophils # 17.1 H Seg Neutrophils # Man Lymphocytes # (Manual) Monocytes # (Manual) Eosinophils # (Manual) Basophils # (Manual) PT INR D-Dimer ABG pH POC ABG pCO2 POC ABG pO2 ABG pO2 ABG HCO3 ABG O2 Saturation ABG Base Excess ABG Hemoglobin ABG Oxyhemoglobin ABG Potassium ABG Glucose Oxyhemoglobin Carboxyhemoglobin Sodium 133 L Potassium Chloride 94.6 L Carbon Dioxide 33 H BUN Creatinine < 0.2 L Glucose 194 H POC Glucose 139 H Calcium Ferritin Total Bilirubin Alkaline Phosphatase Lactate Dehydrogenase Total Creatine Kinase CK-MB (CK-2) Rel Index Troponin T C-Reactive Protein Total Protein Albumin 2.8 L Prealbumin LDL Cholesterol Direct HDL Cholesterol Arterial Blood Glucose Arterial Blood Ionized Calcium Urine WBC (Auto) 03/30/20 03/31/20 03/31/20 17:07 05:02 15:21 WBC RBC Hgb Hct MCV MCH RDW Plt Count Lymph % (Auto) [place] % (Auto) Lymph # (Auto) [place] # (Auto) Seg Neutrophils % Seg Neuts % (Manual) Lymphocytes % (Manual) Monocytes % (Manual) Basophils % (Manual) Seg Neutrophils # Seg Neutrophils # Man Lymphocytes # (Manual) Monocytes # (Manual) Eosinophils # (Manual) Basophils # (Manual) PT INR D-Dimer ABG pH POC ABG pCO2 POC ABG pO2 ABG pO2 ABG HCO3 ABG O2 Saturation ABG Base Excess ABG Hemoglobin ABG Oxyhemoglobin ABG Potassium ABG Glucose Oxyhemoglobin Carboxyhemoglobin Sodium Potassium Chloride Carbon Dioxide BUN Creatinine Glucose POC Glucose 163 H 108 H 110 H Calcium Ferritin Total Bilirubin Alkaline Phosphatase Lactate Dehydrogenase Total Creatine Kinase CK-MB (CK-2) Rel Index Troponin T C-Reactive Protein Total Protein Albumin Prealbumin LDL Cholesterol Direct HDL Cholesterol Arterial Blood Glucose Arterial Blood Ionized Calcium Urine WBC (Auto) 03/31/20 03/31/20 04/01/20 17:58 23:19 05:09 WBC RBC Hgb Hct MCV MCH RDW Plt Count Lymph % (Auto) [place] % (Auto) Lymph # (Auto) [place] # (Auto) Seg Neutrophils % Seg Neuts % (Manual) Lymphocytes % (Manual) Monocytes % (Manual) Basophils % (Manual) Seg Neutrophils # Seg Neutrophils # Man Lymphocytes # (Manual) Monocytes # (Manual) Eosinophils # (Manual) Basophils # (Manual) PT INR D-Dimer ABG pH POC ABG pCO2 POC ABG pO2 ABG pO2 ABG HCO3 ABG O2 Saturation ABG Base Excess ABG Hemoglobin ABG Oxyhemoglobin ABG Potassium ABG Glucose Oxyhemoglobin Carboxyhemoglobin Sodium Potassium Chloride Carbon Dioxide BUN Creatinine Glucose POC Glucose 110 H 131 H 124 H Calcium Ferritin Total Bilirubin Alkaline Phosphatase Lactate Dehydrogenase Total Creatine Kinase CK-MB (CK-2) Rel Index Troponin T C-Reactive Protein Total Protein Albumin Prealbumin LDL Cholesterol Direct HDL Cholesterol Arterial Blood Glucose Arterial Blood Ionized Calcium Urine WBC (Auto) 04/01/20 04/01/20 04/01/20 11:50 17:01 23:21 WBC RBC Hgb Hct MCV MCH RDW Plt Count Lymph % (Auto) [place] % (Auto) Lymph # (Auto) [place] # (Auto) Seg Neutrophils % Seg Neuts % (Manual) Lymphocytes % (Manual) Monocytes % (Manual) Basophils % (Manual) Seg Neutrophils # Seg Neutrophils # Man Lymphocytes # (Manual) Monocytes # (Manual) Eosinophils # (Manual) Basophils # (Manual) PT INR D-Dimer ABG pH POC ABG pCO2 POC ABG pO2 ABG pO2 ABG HCO3 ABG O2 Saturation ABG Base Excess ABG Hemoglobin ABG Oxyhemoglobin ABG Potassium ABG Glucose Oxyhemoglobin Carboxyhemoglobin Sodium Potassium Chloride Carbon Dioxide BUN Creatinine Glucose POC Glucose 136 H 115 H 124 H Calcium Ferritin Total Bilirubin Alkaline Phosphatase Lactate Dehydrogenase Total Creatine Kinase CK-MB (CK-2) Rel Index Troponin T C-Reactive Protein Total Protein Albumin Prealbumin LDL Cholesterol Direct HDL Cholesterol Arterial Blood Glucose Arterial Blood Ionized Calcium Urine WBC (Auto) 04/02/20 04/02/20 04/02/20 05:27 11:58 17:58 WBC RBC Hgb Hct MCV MCH RDW Plt Count Lymph % (Auto) [place] % (Auto) Lymph # (Auto) [place] # (Auto) Seg Neutrophils % Seg Neuts % (Manual) Lymphocytes % (Manual) Monocytes % (Manual) Basophils % (Manual) Seg Neutrophils # Seg Neutrophils # Man Lymphocytes # (Manual) Monocytes # (Manual) Eosinophils # (Manual) Basophils # (Manual) PT INR D-Dimer ABG pH POC ABG pCO2 POC ABG pO2 ABG pO2 ABG HCO3 ABG O2 Saturation ABG Base Excess ABG Hemoglobin ABG Oxyhemoglobin ABG Potassium ABG Glucose Oxyhemoglobin Carboxyhemoglobin Sodium Potassium Chloride Carbon Dioxide BUN Creatinine Glucose POC Glucose 117 H 133 H 122 H Calcium Ferritin Total Bilirubin Alkaline Phosphatase Lactate Dehydrogenase Total Creatine Kinase CK-MB (CK-2) Rel Index Troponin T C-Reactive Protein Total Protein Albumin Prealbumin LDL Cholesterol Direct HDL Cholesterol Arterial Blood Glucose Arterial Blood Ionized Calcium Urine WBC (Auto) 04/02/20 04/03/20 04/03/20 23:12 05:11 11:11 WBC RBC Hgb Hct MCV MCH RDW Plt Count Lymph % (Auto) [place] % (Auto) Lymph # (Auto) [place] # (Auto) Seg Neutrophils % Seg Neuts % (Manual) Lymphocytes % (Manual) Monocytes % (Manual) Basophils % (Manual) Seg Neutrophils # Seg Neutrophils # Man Lymphocytes # (Manual) Monocytes # (Manual) Eosinophils # (Manual) Basophils # (Manual) PT INR D-Dimer ABG pH POC ABG pCO2 POC ABG pO2 ABG pO2 ABG HCO3 ABG O2 Saturation ABG Base Excess ABG Hemoglobin ABG Oxyhemoglobin ABG Potassium ABG Glucose Oxyhemoglobin Carboxyhemoglobin Sodium Potassium Chloride Carbon Dioxide BUN Creatinine Glucose POC Glucose 130 H 139 H 136 H Calcium Ferritin Total Bilirubin Alkaline Phosphatase Lactate Dehydrogenase Total Creatine Kinase CK-MB (CK-2) Rel Index Troponin T C-Reactive Protein Total Protein Albumin Prealbumin LDL Cholesterol Direct HDL Cholesterol Arterial Blood Glucose Arterial Blood Ionized Calcium Urine WBC (Auto) 04/03/20 04/03/20 04/04/20 16:51 23:25 05:29 WBC RBC Hgb Hct MCV MCH RDW Plt Count Lymph % (Auto) [place] % (Auto) Lymph # (Auto) [place] # (Auto) Seg Neutrophils % Seg Neuts % (Manual) Lymphocytes % (Manual) Monocytes % (Manual) Basophils % (Manual) Seg Neutrophils # Seg Neutrophils # Man Lymphocytes # (Manual) Monocytes # (Manual) Eosinophils # (Manual) Basophils # (Manual) PT INR D-Dimer ABG pH POC ABG pCO2 POC ABG pO2 ABG pO2 ABG HCO3 ABG O2 Saturation ABG Base Excess ABG Hemoglobin ABG Oxyhemoglobin ABG Potassium ABG Glucose Oxyhemoglobin Carboxyhemoglobin Sodium Potassium Chloride Carbon Dioxide BUN Creatinine Glucose POC Glucose 118 H 111 H 126 H Calcium Ferritin Total Bilirubin Alkaline Phosphatase Lactate Dehydrogenase Total Creatine Kinase CK-MB (CK-2) Rel Index Troponin T C-Reactive Protein Total Protein Albumin Prealbumin LDL Cholesterol Direct HDL Cholesterol Arterial Blood Glucose Arterial Blood Ionized Calcium Urine WBC (Auto) 04/04/20 04/04/20 04/04/20 11:47 17:41 23:05 WBC RBC Hgb Hct MCV MCH RDW Plt Count Lymph % (Auto) [place] % (Auto) Lymph # (Auto) [place] # (Auto) Seg Neutrophils % Seg Neuts % (Manual) Lymphocytes % (Manual) Monocytes % (Manual) Basophils % (Manual) Seg Neutrophils # Seg Neutrophils # Man Lymphocytes # (Manual) Monocytes # (Manual) Eosinophils # (Manual) Basophils # (Manual) PT INR D-Dimer ABG pH POC ABG pCO2 POC ABG pO2 ABG pO2 ABG HCO3 ABG O2 Saturation ABG Base Excess ABG Hemoglobin ABG Oxyhemoglobin ABG Potassium ABG Glucose Oxyhemoglobin Carboxyhemoglobin Sodium Potassium Chloride Carbon Dioxide BUN Creatinine Glucose POC Glucose 123 H 120 H 119 H Calcium Ferritin Total Bilirubin Alkaline Phosphatase Lactate Dehydrogenase Total Creatine Kinase CK-MB (CK-2) Rel Index Troponin T C-Reactive Protein Total Protein Albumin Prealbumin LDL Cholesterol Direct HDL Cholesterol Arterial Blood Glucose Arterial Blood Ionized Calcium Urine WBC (Auto) 04/05/20 04/05/20 04/05/20 05:14 12:16 18:48 WBC RBC Hgb Hct MCV MCH RDW Plt Count Lymph % (Auto) [place] % (Auto) Lymph # (Auto) [place] # (Auto) Seg Neutrophils % Seg Neuts % (Manual) Lymphocytes % (Manual) Monocytes % (Manual) Basophils % (Manual) Seg Neutrophils # Seg Neutrophils # Man Lymphocytes # (Manual) Monocytes # (Manual) Eosinophils # (Manual) Basophils # (Manual) PT INR D-Dimer ABG pH POC ABG pCO2 POC ABG pO2 ABG pO2 ABG HCO3 ABG O2 Saturation ABG Base Excess ABG Hemoglobin ABG Oxyhemoglobin ABG Potassium ABG Glucose Oxyhemoglobin Carboxyhemoglobin Sodium Potassium Chloride Carbon Dioxide BUN Creatinine Glucose POC Glucose 123 H 148 H 106 H Calcium Ferritin Total Bilirubin Alkaline Phosphatase Lactate Dehydrogenase Total Creatine Kinase CK-MB (CK-2) Rel Index Troponin T C-Reactive Protein Total Protein Albumin Prealbumin LDL Cholesterol Direct HDL Cholesterol Arterial Blood Glucose Arterial Blood Ionized Calcium Urine WBC (Auto) 04/06/20 04/06/20 04/06/20 00:47 03:26 08:24 WBC RBC Hgb Hct MCV MCH RDW Plt Count Lymph % (Auto) [place] % (Auto) Lymph # (Auto) [place] # (Auto) Seg Neutrophils % Seg Neuts % (Manual) Lymphocytes % (Manual) Monocytes % (Manual) Basophils % (Manual) Seg Neutrophils # Seg Neutrophils # Man Lymphocytes # (Manual) Monocytes # (Manual) Eosinophils # (Manual) Basophils # (Manual) PT INR D-Dimer ABG pH POC ABG pCO2 POC ABG pO2 ABG pO2 ABG HCO3 ABG O2 Saturation ABG Base Excess ABG Hemoglobin ABG Oxyhemoglobin ABG Potassium ABG Glucose Oxyhemoglobin Carboxyhemoglobin Sodium Potassium Chloride Carbon Dioxide BUN Creatinine Glucose POC Glucose 129 H 134 H 131 H Calcium Ferritin Total Bilirubin Alkaline Phosphatase Lactate Dehydrogenase Total Creatine Kinase CK-MB (CK-2) Rel Index Troponin T C-Reactive Protein Total Protein Albumin Prealbumin LDL Cholesterol Direct HDL Cholesterol Arterial Blood Glucose Arterial Blood Ionized Calcium Urine WBC (Auto) 04/06/20 04/06/20 04/06/20 11:16 16:27 23:01 WBC RBC Hgb Hct MCV MCH RDW Plt Count Lymph % (Auto) [place] % (Auto) Lymph # (Auto) [place] # (Auto) Seg Neutrophils % Seg Neuts % (Manual) Lymphocytes % (Manual) Monocytes % (Manual) Basophils % (Manual) Seg Neutrophils # Seg Neutrophils # Man Lymphocytes # (Manual) Monocytes # (Manual) Eosinophils # (Manual) Basophils # (Manual) PT INR D-Dimer ABG pH POC ABG pCO2 POC ABG pO2 ABG pO2 ABG HCO3 ABG O2 Saturation ABG Base Excess ABG Hemoglobin ABG Oxyhemoglobin ABG Potassium ABG Glucose Oxyhemoglobin Carboxyhemoglobin Sodium Potassium Chloride Carbon Dioxide BUN Creatinine Glucose POC Glucose 131 H 107 H 125 H Calcium Ferritin Total Bilirubin Alkaline Phosphatase Lactate Dehydrogenase Total Creatine Kinase CK-MB (CK-2) Rel Index Troponin T C-Reactive Protein Total Protein Albumin Prealbumin LDL Cholesterol Direct HDL Cholesterol Arterial Blood Glucose Arterial Blood Ionized Calcium Urine WBC (Auto) 04/07/20 04/07/20 04/07/20 05:24 12:41 17:40 WBC RBC Hgb Hct MCV MCH RDW Plt Count Lymph % (Auto) [place] % (Auto) Lymph # (Auto) [place] # (Auto) Seg Neutrophils % Seg Neuts % (Manual) Lymphocytes % (Manual) Monocytes % (Manual) Basophils % (Manual) Seg Neutrophils # Seg Neutrophils # Man Lymphocytes # (Manual) Monocytes # (Manual) Eosinophils # (Manual) Basophils # (Manual) PT INR D-Dimer ABG pH POC ABG pCO2 POC ABG pO2 ABG pO2 ABG HCO3 ABG O2 Saturation ABG Base Excess ABG Hemoglobin ABG Oxyhemoglobin ABG Potassium ABG Glucose Oxyhemoglobin Carboxyhemoglobin Sodium Potassium Chloride Carbon Dioxide BUN Creatinine Glucose POC Glucose 125 H 145 H 123 H Calcium Ferritin Total Bilirubin Alkaline Phosphatase Lactate Dehydrogenase Total Creatine Kinase CK-MB (CK-2) Rel Index Troponin T C-Reactive Protein Total Protein Albumin Prealbumin LDL Cholesterol Direct HDL Cholesterol Arterial Blood Glucose Arterial Blood Ionized Calcium Urine WBC (Auto) 04/07/20 04/08/20 04/08/20 23:22 05:40 11:29 WBC RBC Hgb Hct MCV MCH RDW Plt Count Lymph % (Auto) [place] % (Auto) Lymph # (Auto) [place] # (Auto) Seg Neutrophils % Seg Neuts % (Manual) Lymphocytes % (Manual) Monocytes % (Manual) Basophils % (Manual) Seg Neutrophils # Seg Neutrophils # Man Lymphocytes # (Manual) Monocytes # (Manual) Eosinophils # (Manual) Basophils # (Manual) PT INR D-Dimer ABG pH POC ABG pCO2 POC ABG pO2 ABG pO2 ABG HCO3 ABG O2 Saturation ABG Base Excess ABG Hemoglobin ABG Oxyhemoglobin ABG Potassium ABG Glucose Oxyhemoglobin Carboxyhemoglobin Sodium Potassium Chloride Carbon Dioxide BUN Creatinine Glucose POC Glucose 133 H 125 H 116 H Calcium Ferritin Total Bilirubin Alkaline Phosphatase Lactate Dehydrogenase Total Creatine Kinase CK-MB (CK-2) Rel Index Troponin T C-Reactive Protein Total Protein Albumin Prealbumin LDL Cholesterol Direct HDL Cholesterol Arterial Blood Glucose Arterial Blood Ionized Calcium Urine WBC (Auto) 04/08/20 04/09/20 04/09/20 17:43 05:47 12:22 WBC RBC Hgb Hct MCV MCH RDW Plt Count Lymph % (Auto) [place] % (Auto) Lymph # (Auto) [place] # (Auto) Seg Neutrophils % Seg Neuts % (Manual) Lymphocytes % (Manual) Monocytes % (Manual) Basophils % (Manual) Seg Neutrophils # Seg Neutrophils # Man Lymphocytes # (Manual) Monocytes # (Manual) Eosinophils # (Manual) Basophils # (Manual) PT INR D-Dimer ABG pH POC ABG pCO2 POC ABG pO2 ABG pO2 ABG HCO3 ABG O2 Saturation ABG Base Excess ABG Hemoglobin ABG Oxyhemoglobin ABG Potassium ABG Glucose Oxyhemoglobin Carboxyhemoglobin Sodium Potassium Chloride Carbon Dioxide BUN Creatinine Glucose POC Glucose 123 H 108 H 116 H Calcium Ferritin Total Bilirubin Alkaline Phosphatase Lactate Dehydrogenase Total Creatine Kinase CK-MB (CK-2) Rel Index Troponin T C-Reactive Protein Total Protein Albumin Prealbumin LDL Cholesterol Direct HDL Cholesterol Arterial Blood Glucose Arterial Blood Ionized Calcium Urine WBC (Auto) 04/09/20 04/09/20 04/10/20 17:24 23:52 06:10 WBC RBC Hgb Hct MCV MCH RDW Plt Count Lymph % (Auto) [place] % (Auto) Lymph # (Auto) [place] # (Auto) Seg Neutrophils % Seg Neuts % (Manual) Lymphocytes % (Manual) Monocytes % (Manual) Basophils % (Manual) Seg Neutrophils # Seg Neutrophils # Man Lymphocytes # (Manual) Monocytes # (Manual) Eosinophils # (Manual) Basophils # (Manual) PT INR D-Dimer ABG pH POC ABG pCO2 POC ABG pO2 ABG pO2 ABG HCO3 ABG O2 Saturation ABG Base Excess ABG Hemoglobin ABG Oxyhemoglobin ABG Potassium ABG Glucose Oxyhemoglobin Carboxyhemoglobin Sodium Potassium Chloride Carbon Dioxide BUN Creatinine Glucose POC Glucose 108 H 126 H 122 H Calcium Ferritin Total Bilirubin Alkaline Phosphatase Lactate Dehydrogenase Total Creatine Kinase CK-MB (CK-2) Rel Index Troponin T C-Reactive Protein Total Protein Albumin Prealbumin LDL Cholesterol Direct HDL Cholesterol Arterial Blood Glucose Arterial Blood Ionized Calcium Urine WBC (Auto) 04/10/20 04/10/20 04/10/20 11:27 18:11 23:24 WBC RBC Hgb Hct MCV MCH RDW Plt Count Lymph % (Auto) [place] % (Auto) Lymph # (Auto) [place] # (Auto) Seg Neutrophils % Seg Neuts % (Manual) Lymphocytes % (Manual) Monocytes % (Manual) Basophils % (Manual) Seg Neutrophils # Seg Neutrophils # Man Lymphocytes # (Manual) Monocytes # (Manual) Eosinophils # (Manual) Basophils # (Manual) PT INR D-Dimer ABG pH POC ABG pCO2 POC ABG pO2 ABG pO2 ABG HCO3 ABG O2 Saturation ABG Base Excess ABG Hemoglobin ABG Oxyhemoglobin ABG Potassium ABG Glucose Oxyhemoglobin Carboxyhemoglobin Sodium Potassium Chloride Carbon Dioxide BUN Creatinine Glucose POC Glucose 129 H 125 H 107 H Calcium Ferritin Total Bilirubin Alkaline Phosphatase Lactate Dehydrogenase Total Creatine Kinase CK-MB (CK-2) Rel Index Troponin T C-Reactive Protein Total Protein Albumin Prealbumin LDL Cholesterol Direct HDL Cholesterol Arterial Blood Glucose Arterial Blood Ionized Calcium Urine WBC (Auto) 04/11/20 04/11/20 04/11/20 05:28 11:46 23:49 WBC RBC Hgb Hct MCV MCH RDW Plt Count Lymph % (Auto) [place] % (Auto) Lymph # (Auto) [place] # (Auto) Seg Neutrophils % Seg Neuts % (Manual) Lymphocytes % (Manual) Monocytes % (Manual) Basophils % (Manual) Seg Neutrophils # Seg Neutrophils # Man Lymphocytes # (Manual) Monocytes # (Manual) Eosinophils # (Manual) Basophils # (Manual) PT INR D-Dimer ABG pH POC ABG pCO2 POC ABG pO2 ABG pO2 ABG HCO3 ABG O2 Saturation ABG Base Excess ABG Hemoglobin ABG Oxyhemoglobin ABG Potassium ABG Glucose Oxyhemoglobin Carboxyhemoglobin Sodium Potassium Chloride Carbon Dioxide BUN Creatinine Glucose POC Glucose 122 H 122 H 116 H Calcium Ferritin Total Bilirubin Alkaline Phosphatase Lactate Dehydrogenase Total Creatine Kinase CK-MB (CK-2) Rel Index Troponin T C-Reactive Protein Total Protein Albumin Prealbumin LDL Cholesterol Direct HDL Cholesterol Arterial Blood Glucose Arterial Blood Ionized Calcium Urine WBC (Auto) 04/12/20 04/12/20 04/12/20 09:07 09:07 11:39 WBC 13.1 H RBC 3.59 L Hgb 9.5 L Hct 29.8 L MCV 83 L MCH 26 L RDW 16.6 H Plt Count 591 H Lymph % (Auto) [place] % (Auto) Lymph # (Auto) [place] # (Auto) Seg Neutrophils % Seg Neuts % (Manual) 86.0 H Lymphocytes % (Manual) 7.0 L Monocytes % (Manual) Basophils % (Manual) Seg Neutrophils # Seg Neutrophils # Man 11.3 H Lymphocytes # (Manual) 0.9 L Monocytes # (Manual) Eosinophils # (Manual) Basophils # (Manual) PT INR D-Dimer ABG pH POC ABG pCO2 POC ABG pO2 ABG pO2 ABG HCO3 ABG O2 Saturation ABG Base Excess ABG Hemoglobin ABG Oxyhemoglobin ABG Potassium ABG Glucose Oxyhemoglobin Carboxyhemoglobin Sodium Potassium Chloride Carbon Dioxide 36 H BUN Creatinine < 0.2 L Glucose 132 H POC Glucose 136 H Calcium Ferritin Total Bilirubin Alkaline Phosphatase Lactate Dehydrogenase Total Creatine Kinase CK-MB (CK-2) Rel Index Troponin T C-Reactive Protein Total Protein Albumin 2.7 L Prealbumin LDL Cholesterol Direct HDL Cholesterol Arterial Blood Glucose Arterial Blood Ionized Calcium Urine WBC (Auto) 04/12/20 04/12/20 04/13/20 18:13 23:07 05:45 WBC RBC Hgb Hct MCV MCH RDW Plt Count Lymph % (Auto) [place] % (Auto) Lymph # (Auto) [place] # (Auto) Seg Neutrophils % Seg Neuts % (Manual) Lymphocytes % (Manual) Monocytes % (Manual) Basophils % (Manual) Seg Neutrophils # Seg Neutrophils # Man Lymphocytes # (Manual) Monocytes # (Manual) Eosinophils # (Manual) Basophils # (Manual) PT INR D-Dimer ABG pH POC ABG pCO2 POC ABG pO2 ABG pO2 ABG HCO3 ABG O2 Saturation ABG Base Excess ABG Hemoglobin ABG Oxyhemoglobin ABG Potassium ABG Glucose Oxyhemoglobin Carboxyhemoglobin Sodium Potassium Chloride Carbon Dioxide BUN Creatinine Glucose POC Glucose 107 H 106 H 125 H Calcium Ferritin Total Bilirubin Alkaline Phosphatase Lactate Dehydrogenase Total Creatine Kinase CK-MB (CK-2) Rel Index Troponin T C-Reactive Protein Total Protein Albumin Prealbumin LDL Cholesterol Direct HDL Cholesterol Arterial Blood Glucose Arterial Blood Ionized Calcium Urine WBC (Auto) 04/13/20 04/13/20 04/13/20 11:18 17:56 23:33 WBC RBC Hgb Hct MCV MCH RDW Plt Count Lymph % (Auto) [place] % (Auto) Lymph # (Auto) [place] # (Auto) Seg Neutrophils % Seg Neuts % (Manual) Lymphocytes % (Manual) Monocytes % (Manual) Basophils % (Manual) Seg Neutrophils # Seg Neutrophils # Man Lymphocytes # (Manual) Monocytes # (Manual) Eosinophils # (Manual) Basophils # (Manual) PT INR D-Dimer ABG pH POC ABG pCO2 POC ABG pO2 ABG pO2 ABG HCO3 ABG O2 Saturation ABG Base Excess ABG Hemoglobin ABG Oxyhemoglobin ABG Potassium ABG Glucose Oxyhemoglobin Carboxyhemoglobin Sodium Potassium Chloride Carbon Dioxide BUN Creatinine Glucose POC Glucose 133 H 110 H 114 H Calcium Ferritin Total Bilirubin Alkaline Phosphatase Lactate Dehydrogenase Total Creatine Kinase CK-MB (CK-2) Rel Index Troponin T C-Reactive Protein Total Protein Albumin Prealbumin LDL Cholesterol Direct HDL Cholesterol Arterial Blood Glucose Arterial Blood Ionized Calcium Urine WBC (Auto) 04/14/20 04/14/20 04/14/20 05:58 11:45 17:48 WBC RBC Hgb Hct MCV MCH RDW Plt Count Lymph % (Auto) [place] % (Auto) Lymph # (Auto) [place] # (Auto) Seg Neutrophils % Seg Neuts % (Manual) Lymphocytes % (Manual) Monocytes % (Manual) Basophils % (Manual) Seg Neutrophils # Seg Neutrophils # Man Lymphocytes # (Manual) Monocytes # (Manual) Eosinophils # (Manual) Basophils # (Manual) PT INR D-Dimer ABG pH POC ABG pCO2 POC ABG pO2 ABG pO2 ABG HCO3 ABG O2 Saturation ABG Base Excess ABG Hemoglobin ABG Oxyhemoglobin ABG Potassium ABG Glucose Oxyhemoglobin Carboxyhemoglobin Sodium Potassium Chloride Carbon Dioxide BUN Creatinine Glucose POC Glucose 115 H 122 H 124 H Calcium Ferritin Total Bilirubin Alkaline Phosphatase Lactate Dehydrogenase Total Creatine Kinase CK-MB (CK-2) Rel Index Troponin T C-Reactive Protein Total Protein Albumin Prealbumin LDL Cholesterol Direct HDL Cholesterol Arterial Blood Glucose Arterial Blood Ionized Calcium Urine WBC (Auto) 04/15/20 04/15/20 04/15/20 00:11 05:38 11:31 WBC RBC Hgb Hct MCV MCH RDW Plt Count Lymph % (Auto) [place] % (Auto) Lymph # (Auto) [place] # (Auto) Seg Neutrophils % Seg Neuts % (Manual) Lymphocytes % (Manual) Monocytes % (Manual) Basophils % (Manual) Seg Neutrophils # Seg Neutrophils # Man Lymphocytes # (Manual) Monocytes # (Manual) Eosinophils # (Manual) Basophils # (Manual) PT INR D-Dimer ABG pH POC ABG pCO2 POC ABG pO2 ABG pO2 ABG HCO3 ABG O2 Saturation ABG Base Excess ABG Hemoglobin ABG Oxyhemoglobin ABG Potassium ABG Glucose Oxyhemoglobin Carboxyhemoglobin Sodium Potassium Chloride Carbon Dioxide BUN Creatinine Glucose POC Glucose 120 H 109 H 123 H Calcium Ferritin Total Bilirubin Alkaline Phosphatase Lactate Dehydrogenase Total Creatine Kinase CK-MB (CK-2) Rel Index Troponin T C-Reactive Protein Total Protein Albumin Prealbumin LDL Cholesterol Direct HDL Cholesterol Arterial Blood Glucose Arterial Blood Ionized Calcium Urine WBC (Auto) 04/15/20 04/16/20 04/16/20 17:35 06:00 11:29 WBC RBC Hgb Hct MCV MCH RDW Plt Count Lymph % (Auto) [place] % (Auto) Lymph # (Auto) [place] # (Auto) Seg Neutrophils % Seg Neuts % (Manual) Lymphocytes % (Manual) Monocytes % (Manual) Basophils % (Manual) Seg Neutrophils # Seg Neutrophils # Man Lymphocytes # (Manual) Monocytes # (Manual) Eosinophils # (Manual) Basophils # (Manual) PT INR D-Dimer ABG pH POC ABG pCO2 POC ABG pO2 ABG pO2 ABG HCO3 ABG O2 Saturation ABG Base Excess ABG Hemoglobin ABG Oxyhemoglobin ABG Potassium ABG Glucose Oxyhemoglobin Carboxyhemoglobin Sodium Potassium Chloride Carbon Dioxide BUN Creatinine Glucose POC Glucose 111 H 142 H 108 H Calcium Ferritin Total Bilirubin Alkaline Phosphatase Lactate Dehydrogenase Total Creatine Kinase CK-MB (CK-2) Rel Index Troponin T C-Reactive Protein Total Protein Albumin Prealbumin LDL Cholesterol Direct HDL Cholesterol Arterial Blood Glucose Arterial Blood Ionized Calcium Urine WBC (Auto) 04/17/20 04/17/20 04/17/20 05:09 06:53 06:53 WBC 14.2 H RBC Hgb 10.1 L Hct 31.5 L MCV MCH 27 L RDW 17.2 H Plt Count 643 H Lymph % (Auto) [place] % (Auto) Lymph # (Auto) [place] # (Auto) Seg Neutrophils % Seg Neuts % (Manual) Lymphocytes % (Manual) Monocytes % (Manual) Basophils % (Manual) Seg Neutrophils # Seg Neutrophils # Man Lymphocytes # (Manual) Monocytes # (Manual) Eosinophils # (Manual) Basophils # (Manual) PT INR D-Dimer ABG pH POC ABG pCO2 POC ABG pO2 ABG pO2 ABG HCO3 ABG O2 Saturation ABG Base Excess ABG Hemoglobin ABG Oxyhemoglobin ABG Potassium ABG Glucose Oxyhemoglobin Carboxyhemoglobin Sodium Potassium Chloride 97.7 L Carbon Dioxide 38 H BUN Creatinine < 0.2 L Glucose 126 H POC Glucose 131 H Calcium Ferritin Total Bilirubin Alkaline Phosphatase Lactate Dehydrogenase Total Creatine Kinase CK-MB (CK-2) Rel Index Troponin T C-Reactive Protein Total Protein Albumin Prealbumin LDL Cholesterol Direct HDL Cholesterol Arterial Blood Glucose Arterial Blood Ionized Calcium Urine WBC (Auto) 04/17/20 04/18/20 04/18/20 11:21 00:23 04:01 WBC 15.3 H RBC Hgb 10.1 L Hct 31.9 L MCV 82 L MCH 26 L RDW 17.2 H Plt Count 665 H Lymph % (Auto) 12.9 L [place] % (Auto) Lymph # (Auto) [place] # (Auto) 1.1 H Seg Neutrophils % 78.0 H Seg Neuts % (Manual) Lymphocytes % (Manual) Monocytes % (Manual) Basophils % (Manual) Seg Neutrophils # 11.9 H Seg Neutrophils # Man Lymphocytes # (Manual) Monocytes # (Manual) Eosinophils # (Manual) Basophils # (Manual) PT INR D-Dimer ABG pH POC ABG pCO2 POC ABG pO2 ABG pO2 ABG HCO3 ABG O2 Saturation ABG Base Excess ABG Hemoglobin ABG Oxyhemoglobin ABG Potassium ABG Glucose Oxyhemoglobin Carboxyhemoglobin Sodium Potassium Chloride Carbon Dioxide BUN Creatinine Glucose POC Glucose 140 H 125 H Calcium Ferritin Total Bilirubin Alkaline Phosphatase Lactate Dehydrogenase Total Creatine Kinase CK-MB (CK-2) Rel Index Troponin T C-Reactive Protein Total Protein Albumin Prealbumin LDL Cholesterol Direct HDL Cholesterol Arterial Blood Glucose Arterial Blood Ionized Calcium Urine WBC (Auto) 04/18/20 04/18/20 04/18/20 04:01 11:29 17:30 WBC RBC Hgb Hct MCV MCH RDW Plt Count Lymph % (Auto) [place] % (Auto) Lymph # (Auto) [place] # (Auto) Seg Neutrophils % Seg Neuts % (Manual) Lymphocytes % (Manual) Monocytes % (Manual) Basophils % (Manual) Seg Neutrophils # Seg Neutrophils # Man Lymphocytes # (Manual) Monocytes # (Manual) Eosinophils # (Manual) Basophils # (Manual) PT INR D-Dimer ABG pH POC ABG pCO2 POC ABG pO2 ABG pO2 ABG HCO3 ABG O2 Saturation ABG Base Excess ABG Hemoglobin ABG Oxyhemoglobin ABG Potassium ABG Glucose Oxyhemoglobin Carboxyhemoglobin Sodium Potassium Chloride 97.0 L Carbon Dioxide 38 H BUN Creatinine < 0.2 L Glucose 117 H POC Glucose 136 H 107 H Calcium Ferritin Total Bilirubin Alkaline Phosphatase Lactate Dehydrogenase Total Creatine Kinase CK-MB (CK-2) Rel Index Troponin T C-Reactive Protein Total Protein Albumin Prealbumin LDL Cholesterol Direct HDL Cholesterol Arterial Blood Glucose Arterial Blood Ionized Calcium Urine WBC (Auto) 04/18/20 04/19/20 04/19/20 23:19 06:51 06:51 WBC 12.2 H RBC Hgb 9.8 L Hct 31.1 L MCV 82 L MCH 26 L RDW 17.2 H Plt Count 549 H Lymph % (Auto) 6.5 L [place] % (Auto) Lymph # (Auto) 0.8 L [place] # (Auto) Seg Neutrophils % 86.7 H Seg Neuts % (Manual) Lymphocytes % (Manual) Monocytes % (Manual) Basophils % (Manual) Seg Neutrophils # 10.6 H Seg Neutrophils # Man Lymphocytes # (Manual) Monocytes # (Manual) Eosinophils # (Manual) Basophils # (Manual) PT INR D-Dimer ABG pH POC ABG pCO2 POC ABG pO2 ABG pO2 ABG HCO3 ABG O2 Saturation ABG Base Excess ABG Hemoglobin ABG Oxyhemoglobin ABG Potassium ABG Glucose Oxyhemoglobin Carboxyhemoglobin Sodium Potassium Chloride 97.8 L Carbon Dioxide 38 H BUN Creatinine < 0.2 L Glucose 123 H POC Glucose 127 H Calcium Ferritin Total Bilirubin Alkaline Phosphatase Lactate Dehydrogenase Total Creatine Kinase CK-MB (CK-2) Rel Index Troponin T C-Reactive Protein Total Protein Albumin Prealbumin LDL Cholesterol Direct HDL Cholesterol Arterial Blood Glucose Arterial Blood Ionized Calcium Urine WBC (Auto) 04/19/20 04/19/20 04/20/20 13:41 18:33 05:56 WBC RBC Hgb Hct MCV MCH RDW Plt Count Lymph % (Auto) [place] % (Auto) Lymph # (Auto) [place] # (Auto) Seg Neutrophils % Seg Neuts % (Manual) Lymphocytes % (Manual) Monocytes % (Manual) Basophils % (Manual) Seg Neutrophils # Seg Neutrophils # Man Lymphocytes # (Manual) Monocytes # (Manual) Eosinophils # (Manual) Basophils # (Manual) PT INR D-Dimer ABG pH POC ABG pCO2 POC ABG pO2 ABG pO2 ABG HCO3 ABG O2 Saturation ABG Base Excess ABG Hemoglobin ABG Oxyhemoglobin ABG Potassium ABG Glucose Oxyhemoglobin Carboxyhemoglobin Sodium Potassium Chloride Carbon Dioxide BUN Creatinine Glucose POC Glucose 116 H 124 H 130 H Calcium Ferritin Total Bilirubin Alkaline Phosphatase Lactate Dehydrogenase Total Creatine Kinase CK-MB (CK-2) Rel Index Troponin T C-Reactive Protein Total Protein Albumin Prealbumin LDL Cholesterol Direct HDL Cholesterol Arterial Blood Glucose Arterial Blood Ionized Calcium Urine WBC (Auto) 04/20/20 04/20/20 04/20/20 06:28 06:28 11:46 WBC RBC Hgb 10.2 L Hct 31.5 L MCV 82 L MCH 27 L RDW 17.1 H Plt Count 546 H Lymph % (Auto) 10.0 L [place] % (Auto) 9.8 H Lymph # (Auto) 1.1 L [place] # (Auto) 1.1 H Seg Neutrophils % 78.4 H Seg Neuts % (Manual) Lymphocytes % (Manual) Monocytes % (Manual) Basophils % (Manual) Seg Neutrophils # 8.5 H Seg Neutrophils # Man Lymphocytes # (Manual) Monocytes # (Manual) Eosinophils # (Manual) Basophils # (Manual) PT INR D-Dimer ABG pH POC ABG pCO2 POC ABG pO2 ABG pO2 ABG HCO3 ABG O2 Saturation ABG Base Excess ABG Hemoglobin ABG Oxyhemoglobin ABG Potassium ABG Glucose Oxyhemoglobin Carboxyhemoglobin Sodium Potassium Chloride 97.0 L Carbon Dioxide 38 H BUN Creatinine < 0.2 L Glucose 138 H POC Glucose 130 H Calcium Ferritin Total Bilirubin Alkaline Phosphatase Lactate Dehydrogenase Total Creatine Kinase CK-MB (CK-2) Rel Index Troponin T C-Reactive Protein Total Protein Albumin Prealbumin LDL Cholesterol Direct HDL Cholesterol Arterial Blood Glucose Arterial Blood Ionized Calcium Urine WBC (Auto) 04/20/20 04/21/20 04/21/20 23:31 05:55 05:55 WBC RBC Hgb 10.0 L Hct 31.1 L MCV 82 L MCH 26 L RDW 17.0 H Plt Count 535 H Lymph % (Auto) [place] % (Auto) 9.2 H Lymph # (Auto) 1.1 L [place] # (Auto) Seg Neutrophils % 75.4 H Seg Neuts % (Manual) Lymphocytes % (Manual) Monocytes % (Manual) Basophils % (Manual) Seg Neutrophils # Seg Neutrophils # Man Lymphocytes # (Manual) Monocytes # (Manual) Eosinophils # (Manual) Basophils # (Manual) PT INR D-Dimer ABG pH POC ABG pCO2 POC ABG pO2 ABG pO2 ABG HCO3 ABG O2 Saturation ABG Base Excess ABG Hemoglobin ABG Oxyhemoglobin ABG Potassium ABG Glucose Oxyhemoglobin Carboxyhemoglobin Sodium Potassium Chloride 95.0 L Carbon Dioxide 34 H BUN Creatinine < 0.2 L Glucose 125 H POC Glucose 116 H Calcium Ferritin Total Bilirubin Alkaline Phosphatase Lactate Dehydrogenase Total Creatine Kinase CK-MB (CK-2) Rel Index Troponin T C-Reactive Protein Total Protein Albumin Prealbumin LDL Cholesterol Direct HDL Cholesterol Arterial Blood Glucose Arterial Blood Ionized Calcium Urine WBC (Auto) 04/22/20 04/22/20 04/22/20 00:01 07:45 07:45 WBC RBC Hgb 10.0 L Hct 30.7 L MCV 81 L MCH 27 L RDW 17.1 H Plt Count 490 H Lymph % (Auto) [place] % (Auto) Lymph # (Auto) [place] # (Auto) Seg Neutrophils % Seg Neuts % (Manual) 75.0 H Lymphocytes % (Manual) 11.0 L Monocytes % (Manual) 9.0 H Basophils % (Manual) Seg Neutrophils # Seg Neutrophils # Man Lymphocytes # (Manual) 0.8 L Monocytes # (Manual) Eosinophils # (Manual) Basophils # (Manual) PT INR D-Dimer ABG pH POC ABG pCO2 POC ABG pO2 ABG pO2 ABG HCO3 ABG O2 Saturation ABG Base Excess ABG Hemoglobin ABG Oxyhemoglobin ABG Potassium ABG Glucose Oxyhemoglobin Carboxyhemoglobin Sodium Potassium Chloride 96.3 L Carbon Dioxide 40 H BUN Creatinine < 0.2 L Glucose 109 H POC Glucose 110 H Calcium Ferritin Total Bilirubin Alkaline Phosphatase Lactate Dehydrogenase Total Creatine Kinase CK-MB (CK-2) Rel Index Troponin T C-Reactive Protein Total Protein Albumin Prealbumin LDL Cholesterol Direct HDL Cholesterol Arterial Blood Glucose Arterial Blood Ionized Calcium Urine WBC (Auto) 04/23/20 04/23/20 04/23/20 04:28 04:28 04:28 WBC RBC 3.64 L Hgb 9.7 L Hct 29.4 L MCV 81 L MCH 27 L RDW 17.2 H Plt Count 527 H Lymph % (Auto) [place] % (Auto) 8.9 H Lymph # (Auto) [place] # (Auto) Seg Neutrophils % Seg Neuts % (Manual) Lymphocytes % (Manual) Monocytes % (Manual) Basophils % (Manual) Seg Neutrophils # Seg Neutrophils # Man Lymphocytes # (Manual) Monocytes # (Manual) Eosinophils # (Manual) Basophils # (Manual) PT INR D-Dimer ABG pH POC ABG pCO2 POC ABG pO2 ABG pO2 ABG HCO3 ABG O2 Saturation ABG Base Excess ABG Hemoglobin ABG Oxyhemoglobin ABG Potassium ABG Glucose Oxyhemoglobin Carboxyhemoglobin Sodium Potassium Chloride 96.4 L Carbon Dioxide 32 H D BUN Creatinine < 0.2 L Glucose 134 H POC Glucose Calcium Ferritin Total Bilirubin Alkaline Phosphatase Lactate Dehydrogenase Total Creatine Kinase CK-MB (CK-2) Rel Index Troponin T 0.151 H* C-Reactive Protein Total Protein Albumin Prealbumin LDL Cholesterol Direct HDL Cholesterol 29 L Arterial Blood Glucose Arterial Blood Ionized Calcium Urine WBC (Auto) 04/23/20 04/23/20 04/24/20 06:03 23:41 05:28 WBC RBC 3.56 L Hgb 9.5 L Hct 28.9 L MCV 81 L MCH 27 L RDW 17.4 H Plt Count 462 H Lymph % (Auto) Warren % (Auto) Lymph # (Auto) Warren # (Auto) Seg Neutrophils % Seg Neuts % (Manual) 80.0 H Lymphocytes % (Manual) Monocytes % (Manual) Basophils % (Manual) Seg Neutrophils # Seg Neutrophils # Man Lymphocytes # (Manual) Monocytes # (Manual) Eosinophils # (Manual) Basophils # (Manual) PT INR D-Dimer ABG pH POC ABG pCO2 POC ABG pO2 ABG pO2 ABG HCO3 ABG O2 Saturation ABG Base Excess ABG Hemoglobin ABG Oxyhemoglobin ABG Potassium ABG Glucose Oxyhemoglobin Carboxyhemoglobin Sodium Potassium Chloride Carbon Dioxide BUN Creatinine Glucose POC Glucose 132 H 117 H Calcium Ferritin Total Bilirubin Alkaline Phosphatase Lactate Dehydrogenase Total Creatine Kinase CK-MB (CK-2) Rel Index Troponin T C-Reactive Protein Total Protein Albumin Prealbumin LDL Cholesterol Direct HDL Cholesterol Arterial Blood Glucose Arterial Blood Ionized Calcium Urine WBC (Auto) 04/24/20 04/24/20 04/24/20 05:28 05:28 05:33 WBC RBC Hgb Hct MCV MCH RDW Plt Count Lymph % (Auto) Warren % (Auto) Lymph # (Auto) Warren # (Auto) Seg Neutrophils % Seg Neuts % (Manual) Lymphocytes % (Manual) Monocytes % (Manual) Basophils % (Manual) Seg Neutrophils # Seg Neutrophils # Man Lymphocytes # (Manual) Monocytes # (Manual) Eosinophils # (Manual) Basophils # (Manual) PT INR D-Dimer ABG pH POC ABG pCO2 POC ABG pO2 ABG pO2 ABG HCO3 ABG O2 Saturation ABG Base Excess ABG Hemoglobin ABG Oxyhemoglobin ABG Potassium ABG Glucose Oxyhemoglobin Carboxyhemoglobin Sodium Potassium Chloride 96.1 L Carbon Dioxide 40 H D BUN Creatinine < 0.2 L Glucose 115 H POC Glucose 109 H Calcium Ferritin Total Bilirubin Alkaline Phosphatase Lactate Dehydrogenase Total Creatine Kinase CK-MB (CK-2) Rel Index Troponin T 0.181 H* C-Reactive Protein Total Protein Albumin Prealbumin LDL Cholesterol Direct HDL Cholesterol Arterial Blood Glucose Arterial Blood Ionized Calcium Urine WBC (Auto) 04/24/20 04/24/20 04/25/20 11:17 18:23 00:12 WBC RBC Hgb Hct MCV MCH RDW Plt Count Lymph % (Auto) Warren % (Auto) Lymph # (Auto) Warren # (Auto) Seg Neutrophils % Seg Neuts % (Manual) Lymphocytes % (Manual) Monocytes % (Manual) Basophils % (Manual) Seg Neutrophils # Seg Neutrophils # Man Lymphocytes # (Manual) Monocytes # (Manual) Eosinophils # (Manual) Basophils # (Manual) PT INR D-Dimer ABG pH POC ABG pCO2 POC ABG pO2 ABG pO2 ABG HCO3 ABG O2 Saturation ABG Base Excess ABG Hemoglobin ABG Oxyhemoglobin ABG Potassium ABG Glucose Oxyhemoglobin Carboxyhemoglobin Sodium Potassium Chloride Carbon Dioxide BUN Creatinine Glucose POC Glucose 117 H 109 H 113 H Calcium Ferritin Total Bilirubin Alkaline Phosphatase Lactate Dehydrogenase Total Creatine Kinase CK-MB (CK-2) Rel Index Troponin T C-Reactive Protein Total Protein Albumin Prealbumin LDL Cholesterol Direct HDL Cholesterol Arterial Blood Glucose Arterial Blood Ionized Calcium Urine WBC (Auto) 04/25/20 04/25/20 04/25/20 06:34 06:34 11:28 WBC 11.7 H RBC Hgb 10.0 L Hct 31.7 L MCV 82 L MCH 26 L RDW 17.5 H Plt Count 564 H Lymph % (Auto) Warren % (Auto) Lymph # (Auto) Warren # (Auto) Seg Neutrophils % Seg Neuts % (Manual) 78.0 H Lymphocytes % (Manual) 10.0 L Monocytes % (Manual) 9.0 H Basophils % (Manual) Seg Neutrophils # Seg Neutrophils # Man 9.1 H Lymphocytes # (Manual) Monocytes # (Manual) 1.1 H Eosinophils # (Manual) Basophils # (Manual) PT INR D-Dimer ABG pH POC ABG pCO2 POC ABG pO2 ABG pO2 ABG HCO3 ABG O2 Saturation ABG Base Excess ABG Hemoglobin ABG Oxyhemoglobin ABG Potassium ABG Glucose Oxyhemoglobin Carboxyhemoglobin Sodium Potassium Chloride Carbon Dioxide 39 H BUN Creatinine < 0.2 L Glucose 103 H POC Glucose 112 H Calcium Ferritin Total Bilirubin Alkaline Phosphatase Lactate Dehydrogenase Total Creatine Kinase CK-MB (CK-2) Rel Index Troponin T C-Reactive Protein Total Protein Albumin Prealbumin LDL Cholesterol Direct HDL Cholesterol Arterial Blood Glucose Arterial Blood Ionized Calcium Urine WBC (Auto) 04/27/20 04/27/20 04/27/20 11:48 17:08 23:31 WBC RBC Hgb Hct MCV MCH RDW Plt Count Lymph % (Auto) Warren % (Auto) Lymph # (Auto) [place] # (Auto) Seg Neutrophils % Seg Neuts % (Manual) Lymphocytes % (Manual) Monocytes % (Manual) Basophils % (Manual) Seg Neutrophils # Seg Neutrophils # Man Lymphocytes # (Manual) Monocytes # (Manual) Eosinophils # (Manual) Basophils # (Manual) PT INR D-Dimer ABG pH POC ABG pCO2 POC ABG pO2 ABG pO2 ABG HCO3 ABG O2 Saturation ABG Base Excess ABG Hemoglobin ABG Oxyhemoglobin ABG Potassium ABG Glucose Oxyhemoglobin Carboxyhemoglobin Sodium Potassium Chloride Carbon Dioxide BUN Creatinine Glucose POC Glucose 124 H 118 H 122 H Calcium Ferritin Total Bilirubin Alkaline Phosphatase Lactate Dehydrogenase Total Creatine Kinase CK-MB (CK-2) Rel Index Troponin T C-Reactive Protein Total Protein Albumin Prealbumin LDL Cholesterol Direct HDL Cholesterol Arterial Blood Glucose Arterial Blood Ionized Calcium Urine WBC (Auto) 04/28/20 05:42 WBC RBC Hgb Hct MCV MCH RDW Plt Count Lymph % (Auto) Warren % (Auto) Lymph # (Auto) [place] # (Auto) Seg Neutrophils % Seg Neuts % (Manual) Lymphocytes % (Manual) Monocytes % (Manual) Basophils % (Manual) Seg Neutrophils # Seg Neutrophils # Man Lymphocytes # (Manual) Monocytes # (Manual) Eosinophils # (Manual) Basophils # (Manual) PT INR D-Dimer ABG pH POC ABG pCO2 POC ABG pO2 ABG pO2 ABG HCO3 ABG O2 Saturation ABG Base Excess ABG Hemoglobin ABG Oxyhemoglobin ABG Potassium ABG Glucose Oxyhemoglobin Carboxyhemoglobin Sodium Potassium Chloride Carbon Dioxide BUN Creatinine Glucose POC Glucose 122 H Calcium Ferritin Total Bilirubin Alkaline Phosphatase Lactate Dehydrogenase Total Creatine Kinase CK-MB (CK-2) Rel Index Troponin T C-Reactive Protein Total Protein Albumin Prealbumin LDL Cholesterol Direct HDL Cholesterol Arterial Blood Glucose Arterial Blood Ionized Calcium Urine WBC (Auto) Allied health notes reviewed: nursing
[2020-04-28] MEDS: MAGIC MOUTHWASH 30ML PO SCH ×3 (17:45→21:35)
[2020-04-28] MEDS: SENNOSIDES 8.6 MG TAB PO SCH (21:35)
[2020-04-28] MEDS: ZOLPIDEM 5 MG TAB PO PRN (21:36)
[2020-04-28] MEDS: ENOXAPARIN 40 MG/0.4 ML INJ SUB-Q SCH (21:36)
[2020-04-29] MEDS: MORPHINE 2 MG/1 ML INJ IV PRN ×5 (01:58→22:44)
[2020-04-29] MEDS: SODIUM HYPOCHLORITE, DAKIN'S 1/2 STRENGTH (0.25%) 473 ML TOPICAL SOLN TP SCH ×3 (01:59→23:10)
[2020-04-29] MEDS: ALPRAZolam 0.5 MG TAB PO PRN ×3 (06:14→22:37)
[2020-04-29] MEDS: GLYCOPYRROLATE 1 MG TAB PO SCH ×3 (08:57→22:36)
[2020-04-29] MEDS: ASPIRIN EC 81 MG TAB PO SCH (09:04)
[2020-04-29] MEDS: BACLOFEN 10 MG TAB PO SCH ×2 (09:04→22:37)
[2020-04-29] MEDS: traMADol 50 MG TAB PO PRN ×3 (09:04→22:37)
[2020-04-29] MEDS: METOPROLOL TARTRATE 25 MG TAB PO SCH ×2 (09:04→22:38)
[2020-04-29] MEDS: LANSOPRAZOLE 30 MG SOLUTAB FEEDTUBE SCH (09:05)
[2020-04-29] MEDS: TAMSULOSIN 0.4 MG CAP PO SCH (09:05)
[2020-04-29] MEDS: PREGABALIN 75 MG CAP PO SCH ×2 (09:05→22:36)
[2020-04-29] MEDS: DOCUSATE SODIUM 100 MG/10 ML ORAL LIQD FEEDTUBE SCH ×2 (09:05→22:36)
[2020-04-29] MEDS: SCOPOLAMINE TRANSDERMAL PATCH 72 HR TD SCH (09:05)
[2020-04-29] MEDS: LIDOCAINE 5% 1 EACH PATCH TD SCH (09:05)
[2020-04-29] MEDS: MAGIC MOUTHWASH 30ML PO SCH ×3 (09:18→22:36)
--- NOTE | 2020-04-29 11:55 | Progress Note ---
Assessment and Plan Mildly elevated troponin likely c/w type 2 nstemi (was elevated similarly ~ 1 month ago) No new ecg changes on 04/28 TTE from 02/25 re-reviewed Pt denies any recent cp Agree w asa Would consider stress test when pt is more clinically stable and prior to dc. - Patient Problems (1) Elevated d-dimer Current Visit: Yes Status: Acute (2) Elevated troponin Current Visit: Yes Status: Acute (3) NSTEMI (non-ST elevated myocardial infarction) Current Visit: Yes Status: Acute (4) Respiratory failure Current Visit: Yes Status: Acute (5) Sepsis Current Visit: Yes Status: Acute (6) Severe protein-calorie malnutrition Current Visit: Yes Status: Acute (7) Toxic metabolic encephalopathy Current Visit: Yes Status: Acute (8) ALS (amyotrophic lateral sclerosis) Current Visit: Yes Status: Chronic (9) ETOH abuse Current Visit: Yes Status: Chronic Subjective Principal diagnosis: Ac on Ch Hypercapnic & hypoxemic Resp Failure; Severe Sepsis; Jamar PNA; ALS Interval history: seen in icu, discussed w/ rn no complaints no cp or sob Objective Vital Signs Temp Pulse Pulse Resp BP Pulse Ox Pulse Ox 04/29/20 11:24 90 87/62 100 04/29/20 09:04 104 H 105/72 04/29/20 08:38 103 H 99/61 100 04/29/20 08:00 98.0 F 04/29/20 06:00 105 H 17 98/64 100 04/29/20 05:00 103 H 14 98/59 100 04/29/20 04:00 97.8 F 107 H 18 100/57 99 04/29/20 03:00 105 H 17 93/59 100 04/29/20 02:00 111 H 20 99/69 99 04/29/20 01:00 103 H 22 102/69 98 04/29/20 00:15 105 H 99/63 100 04/29/20 00:00 98.2 F 100 H 16 99/63 100 100 04/28/20 23:00 96 H 17 96/62 100 04/28/20 22:00 111 H 18 110/78 97 04/28/20 21:35 107 H 105/72 04/28/20 21:00 104 H 21 105/71 99 04/28/20 20:00 98.4 F 104 H 19 98/71 100 04/28/20 19:12 108 H 112/68 100 04/28/20 19:00 102 H 22 112/68 100 04/28/20 18:09 106 H 22 104/63 100 04/28/20 18:00 116 H 17 104/63 99 04/28/20 17:45 100 04/28/20 17:28 99 H 13 108/67 100 04/28/20 17:00 107 H 20 108/67 100 04/28/20 16:00 98.7 F 108 H 112 H 21 105/69 98 04/28/20 15:00 110 H 19 104/63 99 04/28/20 14:00 104 H 18 107/65 100 04/28/20 13:00 98 H 20 95/59 100 04/28/20 12:00 98.0 F 95 H 112 H 22 91/64 100 - Physical Examination General: No Apparent Distress HEENT: Positive: Normocephaly Neck: Positive: neck supple. Negative: JVD/HJR Neuro: Positive: Other (unable to assess) Abdomen: Positive: Soft, Active Bowel Sounds Skin: Positive: Wound. Negative: Rash Musculoskeletal: No Fluid Collection Extremities: Present: lower extr. pulses. Absent: edema - Imaging and Cardiology EKG: report reviewed, image reviewed Echo: report reviewed (02/26/2020 - EF 50-55%; impaired LV relaxation; no pericardial effusion) - EKG Sinus rhythms and dysrhythmias: sinus tachycardia Repolarization changes or abnormalities: nonspecific abnormality, ST segment, and/or T wave - Allied health notes Allied health notes reviewed: nursing
--- NOTE | 2020-04-29 12:10 | Progress Note ---
Assessment and Plan Patient sleeping at this time. Patient is on assist control mechanical ventilation, Rate 10, Tidal volume 400, FIO2 35%, PEEP 6 and O2 saturation running 100%. Recommend Continue spontaneous breathing trials as tolerated.Respiratory therapy told me, Patient Not tolearing T tube trials at this time.Patient afebrile and has leukocytosis. Chest xray done 04/15/20 reported mild basilar airspace opacities which likely represent atelectasis but could represent an evolving pneumonia. If patient running fever, recommend to place him on antibiotics like zosyn. - Patient Problems (1) Acute on chronic respiratory failure with hypoxia and hypercapnia Current Visit: Yes Status: Acute Plan to address problem: Patient is on assist control mechanical ventilation, rate 10, Tidal volume 400, FIO2 35%, PEEP 6. Albuterol inhaler 2 puffs po qid. Continue S/C Lovenox. Continue prevacid. Continue spontaneous breathing trials. (2) Bleeding from wound Current Visit: Yes Status: Acute Plan to address problem: Management primary care , surgery and wound care. (3) Elevated d-dimer Current Visit: Yes Status: Acute Plan to address problem: Patients venous doppler studies of legs, CTA chest reported Negative for VTE. Patient is on S/C Lovenox 40 mg qd. (4) Elevated troponin Current Visit: Yes Status: Acute Plan to address problem: Management as per primary care and cardiology (5) NSTEMI (non-ST elevated myocardial infarction) Current Visit: Yes Status: Acute Plan to address problem: Management as per cardiology. (6) Pneumonia Current Visit: Yes Status: Acute Qualifiers: Laterality: bilateral Plan to address problem: Patient was treated with ceftriaxone, zosyn and zithromax. Patient afebrile to day. Has leukocytosis. Chest xray done 04/15/20 reported mild basilar airspace opacities which likely represent atelectasis but could represent an evolving pneumonia. If patient running fever, recommend to place him back on antibiotics like zosyn. Subjective Date of service: 04/29/20 Principal diagnosis: Ac on Ch Hypercapnic & hypoxemic Resp Failure; Severe Sepsis; Jamar PNA; ALS Interval history: Patient sleeping at this time. Patient is on assist control mechanical ventilation, Rate 10, Tidal volume 400, FIO2 35%, PEEP 6 and O2 saturation running 100%. Recommend Continue spontaneous breathing trials as tolerated.Re spiratory therapy told me, Patient Not tolearing T tube trials at this time.Patient afebrile and has leukocytosis. Chest xray done 04/15/20 reported mild basilar airspace opacities which likely represent atelectasis but could represent an evolving pneumonia. If patient running fever, recommend to place him on antibiotics like zosyn. Objective Vital Signs - 12hr 04/29/20 04/29/20 04/29/20 00:15 01:00 02:00 Temperature Pulse Rate 105 H 103 H 111 H Respiratory 22 20 Rate Blood Pressure 99/63 102/69 99/69 O2 Sat by Pulse 100 98 99 Oximetry 04/29/20 04/29/20 04/29/20 03:00 04:00 05:00 Temperature 97.8 F Pulse Rate 105 H 107 H 103 H Respiratory 17 18 14 Rate Blood Pressure 93/59 100/57 98/59 O2 Sat by Pulse 100 99 100 Oximetry 04/29/20 04/29/20 04/29/20 06:00 08:00 08:38 Temperature 98.0 F Pulse Rate 105 H 103 H Respiratory 17 Rate Blood Pressure 98/64 99/61 O2 Sat by Pulse 100 100 Oximetry 04/29/20 04/29/20 09:04 11:24 Temperature Pulse Rate 104 H 90 Respiratory Rate Blood Pressure 105/72 87/62 O2 Sat by Pulse 100 Oximetry Constitutional: no acute distress, asleep, other (thin middle aged male with normal respiratory effort at rest on MVS) Eyes: non-icteric ENT: oropharynx moist, other (S/P Tracheostomy) Neck: supple, no lymphadenopathy, no JVD Effort: mildly labored Ascultation: Bilateral: diminished breath sounds, wheezes, rhonchi Percussion: Bilateral: not dull Cardiovascular: regular rate and rhythm, other (S1,S2, no murmurs) Gastrointestinal: normoactive bowel sounds, soft, non-tender, non-distended, other (+ distended but non tender suprapubis) Integumentary: normal, decubitus ulcer (sacral / gluteal) Extremities: no cyanosis, no edema, pulses normal, other (atrophic looking limbs) Neurologic: pupils equal and round, other (motor strength in extremities 1-2/5, awake, alert, mouths words to make needs known) Psychiatric: mood appropriate, affect normal CBC and BMP: 04/25/20 06:34 04/25/20 06:34 ABG, PT/INR, D-dimer: ABG ABG pH 7.371 (7.320-7.450) 03/08/20 12:34 POC ABG pCO2 63.1 mmHg (32.0-48.0) H 03/08/20 12:34 ABG pCO2 60.1 mm Hg 03/06/20 04:34 POC ABG pO2 90.5 mmHg (83-108) 03/08/20 12:34 ABG pO2 88.6 mm Hg (80.0-90.0) 03/06/20 04:34 POC ABG HCO3 35.7 03/08/20 12:34 ABG O2 Saturation 97.0 % (95.0-99.0) 03/06/20 04:34 PT/INR, D-dimer PT 15.6 Sec. (12.2-14.9) H 02/24/20 09:19 INR 1.21 (0.87-1.13) H 02/24/20 09:19 D-Dimer 1311.96 ng/mlDDU (0-234) H 02/24/20 09:19 Abnormal lab findings: Abnormal Labs 02/24/20 02/24/20 02/24/20 09:19 09:19 09:19 WBC 20.2 H RBC 5.05 H Hgb Hct MCV MCH RDW 15.3 H Plt Count Lymph % (Auto) [place] % (Auto) Lymph # (Auto) [place] # (Auto) Seg Neutrophils % Seg Neuts % (Manual) 86.0 H Lymphocytes % (Manual) 1.0 L Monocytes % (Manual) Basophils % (Manual) Seg Neutrophils # Seg Neutrophils # Man 17.4 H Lymphocytes # (Manual) 0.2 L Monocytes # (Manual) Eosinophils # (Manual) Basophils # (Manual) PT 15.6 H INR 1.21 H D-Dimer 1311.96 H ABG pH POC ABG pCO2 POC ABG pO2 ABG pO2 ABG HCO3 ABG O2 Saturation ABG Base Excess ABG Hemoglobin ABG Oxyhemoglobin ABG Potassium ABG Glucose Oxyhemoglobin Carboxyhemoglobin Sodium 135 L Potassium 3.2 L Chloride 92.2 L Carbon Dioxide BUN 6 L Creatinine < 0.2 L Glucose 124 H POC Glucose Calcium Ferritin Total Bilirubin 2.30 H Alkaline Phosphatase 132 H Lactate Dehydrogenase Total Creatine Kinase CK-MB (CK-2) Rel Index Troponin T 0.080 H C-Reactive Protein Total Protein Albumin 3.6 L Prealbumin LDL Cholesterol Direct 41 L HDL Cholesterol Arterial Blood Glucose Arterial Blood Ionized Calcium Urine WBC (Auto) 02/24/20 02/24/20 02/24/20 09:19 09:58 10:01 WBC RBC Hgb Hct MCV MCH RDW Plt Count Lymph % (Auto) [place] % (Auto) Lymph # (Auto) [place] # (Auto) Seg Neutrophils % Seg Neuts % (Manual) Lymphocytes % (Manual) Monocytes % (Manual) Basophils % (Manual) Seg Neutrophils # Seg Neutrophils # Man Lymphocytes # (Manual) Monocytes # (Manual) Eosinophils # (Manual) Basophils # (Manual) PT INR D-Dimer ABG pH 7.176 L* POC ABG pCO2 POC ABG pO2 ABG pO2 91.2 H ABG HCO3 ABG O2 Saturation ABG Base Excess -4.6 L ABG Hemoglobin ABG Oxyhemoglobin ABG Potassium ABG Glucose Oxyhemoglobin 92.6 L Carboxyhemoglobin Sodium Potassium Chloride Carbon Dioxide BUN Creatinine Glucose POC Glucose Calcium Ferritin 1715.0 H Total Bilirubin Alkaline Phosphatase Lactate Dehydrogenase 303 H Total Creatine Kinase CK-MB (CK-2) Rel Index Troponin T C-Reactive Protein 26.10 H Total Protein Albumin Prealbumin LDL Cholesterol Direct HDL Cholesterol Arterial Blood Glucose Arterial Blood Ionized Calcium Urine WBC (Auto) 02/24/20 02/24/20 02/24/20 11:52 13:45 19:35 WBC RBC Hgb Hct MCV MCH RDW Plt Count Lymph % (Auto) [place] % (Auto) Lymph # (Auto) [place] # (Auto) Seg Neutrophils % Seg Neuts % (Manual) Lymphocytes % (Manual) Monocytes % (Manual) Basophils % (Manual) Seg Neutrophils # Seg Neutrophils # Man Lymphocytes # (Manual) Monocytes # (Manual) Eosinophils # (Manual) Basophils # (Manual) PT INR D-Dimer ABG pH 7.051 L* 7.300 L POC ABG pCO2 POC ABG pO2 ABG pO2 94.7 H 75.1 L ABG HCO3 18.0 L ABG O2 Saturation 93.5 L ABG Base Excess -6.8 L -7.8 L ABG Hemoglobin 13.2 L 11.9 L ABG Oxyhemoglobin ABG Potassium ABG Glucose Oxyhemoglobin 91.0 L 92.7 L Carboxyhemoglobin Sodium Potassium Chloride Carbon Dioxide BUN Creatinine Glucose POC Glucose Calcium Ferritin Total Bilirubin Alkaline Phosphatase Lactate Dehydrogenase Total Creatine Kinase CK-MB (CK-2) Rel Index Troponin T 0.034 H D C-Reactive Protein Total Protein Albumin Prealbumin LDL Cholesterol Direct HDL Cholesterol Arterial Blood Glucose Arterial Blood Ionized Calcium Urine WBC (Auto) 02/25/20 02/25/20 02/25/20 04:00 04:00 12:26 WBC 22.9 H RBC Hgb Hct MCV 83 L MCH 27 L RDW Plt Count 468 H Lymph % (Auto) [place] % (Auto) Lymph # (Auto) [place] # (Auto) Seg Neutrophils % Seg Neuts % (Manual) 89.0 H Lymphocytes % (Manual) 7.0 L Monocytes % (Manual) Basophils % (Manual) Seg Neutrophils # Seg Neutrophils # Man 20.4 H Lymphocytes # (Manual) Monocytes # (Manual) Eosinophils # (Manual) Basophils # (Manual) PT INR D-Dimer ABG pH POC ABG pCO2 POC ABG pO2 ABG pO2 ABG HCO3 ABG O2 Saturation ABG Base Excess ABG Hemoglobin ABG Oxyhemoglobin ABG Potassium 2.6 L ABG Glucose 142 H Oxyhemoglobin Carboxyhemoglobin Sodium Potassium 3.2 L Chloride Carbon Dioxide 18 L BUN Creatinine 0.2 L Glucose 114 H POC Glucose Calcium Ferritin Total Bilirubin Alkaline Phosphatase Lactate Dehydrogenase Total Creatine Kinase CK-MB (CK-2) Rel Index Troponin T C-Reactive Protein Total Protein Albumin 3.5 L Prealbumin LDL Cholesterol Direct HDL Cholesterol Arterial Blood Glucose 142 H Arterial Blood Ionized Calcium Urine WBC (Auto) 02/26/20 02/26/20 02/26/20 15:58 17:00 23:43 WBC RBC Hgb Hct MCV MCH RDW Plt Count Lymph % (Auto) [place] % (Auto) Lymph # (Auto) [place] # (Auto) Seg Neutrophils % Seg Neuts % (Manual) Lymphocytes % (Manual) Monocytes % (Manual) Basophils % (Manual) Seg Neutrophils # Seg Neutrophils # Man Lymphocytes # (Manual) Monocytes # (Manual) Eosinophils # (Manual) Basophils # (Manual) PT INR D-Dimer ABG pH 7.502 H POC ABG pCO2 POC ABG pO2 213.6 H ABG pO2 ABG HCO3 ABG O2 Saturation ABG Base Excess ABG Hemoglobin ABG Oxyhemoglobin 99.2 H ABG Potassium 2.9 L ABG Glucose 160 H Oxyhemoglobin Carboxyhemoglobin 0.4 L Sodium Potassium Chloride Carbon Dioxide BUN Creatinine Glucose POC Glucose 189 H 120 H Calcium Ferritin Total Bilirubin Alkaline Phosphatase Lactate Dehydrogenase Total Creatine Kinase CK-MB (CK-2) Rel Index Troponin T C-Reactive Protein Total Protein Albumin Prealbumin LDL Cholesterol Direct HDL Cholesterol Arterial Blood Glucose 160 H Arterial Blood Ionized Calcium 4.5 L Urine WBC (Auto) 02/27/20 02/27/20 02/27/20 05:00 07:04 17:45 WBC RBC Hgb Hct MCV MCH RDW Plt Count Lymph % (Auto) [place] % (Auto) Lymph # (Auto) [place] # (Auto) Seg Neutrophils % Seg Neuts % (Manual) Lymphocytes % (Manual) Monocytes % (Manual) Basophils % (Manual) Seg Neutrophils # Seg Neutrophils # Man Lymphocytes # (Manual) Monocytes # (Manual) Eosinophils # (Manual) Basophils # (Manual) PT INR D-Dimer ABG pH 7.524 H POC ABG pCO2 POC ABG pO2 ABG pO2 ABG HCO3 ABG O2 Saturation ABG Base Excess ABG Hemoglobin ABG Oxyhemoglobin ABG Potassium 3.0 L ABG Glucose 143 H Oxyhemoglobin Carboxyhemoglobin Sodium Potassium Chloride Carbon Dioxide BUN Creatinine Glucose POC Glucose 154 H 175 H Calcium Ferritin Total Bilirubin Alkaline Phosphatase Lactate Dehydrogenase Total Creatine Kinase CK-MB (CK-2) Rel Index Troponin T C-Reactive Protein Total Protein Albumin Prealbumin LDL Cholesterol Direct HDL Cholesterol Arterial Blood Glucose 143 H Arterial Blood Ionized Calcium Urine WBC (Auto) 02/27/20 02/28/20 02/28/20 Unknown 00:21 04:15 WBC 18.7 H RBC Hgb Hct MCV MCH RDW Plt Count Lymph % (Auto) 8.7 L [place] % (Auto) Lymph # (Auto) [place] # (Auto) 1.2 H Seg Neutrophils % 84.6 H Seg Neuts % (Manual) Lymphocytes % (Manual) Monocytes % (Manual) Basophils % (Manual) Seg Neutrophils # 15.9 H Seg Neutrophils # Man Lymphocytes # (Manual) Monocytes # (Manual) Eosinophils # (Manual) Basophils # (Manual) PT INR D-Dimer ABG pH POC ABG pCO2 POC ABG pO2 ABG pO2 ABG HCO3 ABG O2 Saturation ABG Base Excess ABG Hemoglobin ABG Oxyhemoglobin ABG Potassium ABG Glucose Oxyhemoglobin Carboxyhemoglobin Sodium Potassium 2.9 L* Chloride Carbon Dioxide 33 H D BUN Creatinine < 0.2 L Glucose 157 H POC Glucose 134 H Calcium Ferritin Total Bilirubin Alkaline Phosphatase Lactate Dehydrogenase Total Creatine Kinase CK-MB (CK-2) Rel Index Troponin T C-Reactive Protein Total Protein Albumin Prealbumin LDL Cholesterol Direct HDL Cholesterol Arterial Blood Glucose Arterial Blood Ionized Calcium Urine WBC (Auto) 02/28/20 02/28/20 02/28/20 04:15 05:16 05:39 WBC RBC Hgb Hct MCV MCH RDW Plt Count Lymph % (Auto) [place] % (Auto) Lymph # (Auto) [place] # (Auto) Seg Neutrophils % Seg Neuts % (Manual) Lymphocytes % (Manual) Monocytes % (Manual) Basophils % (Manual) Seg Neutrophils # Seg Neutrophils # Man Lymphocytes # (Manual) Monocytes # (Manual) Eosinophils # (Manual) Basophils # (Manual) PT INR D-Dimer ABG pH POC ABG pCO2 POC ABG pO2 ABG pO2 142.9 H ABG HCO3 34.1 H ABG O2 Saturation ABG Base Excess 8.3 H ABG Hemoglobin ABG Oxyhemoglobin ABG Potassium ABG Glucose Oxyhemoglobin Carboxyhemoglobin Sodium 151 H Potassium Chloride Carbon Dioxide 32 H BUN Creatinine 0.2 L Glucose 167 H POC Glucose 138 H Calcium Ferritin Total Bilirubin Alkaline Phosphatase Lactate Dehydrogenase Total Creatine Kinase CK-MB (CK-2) Rel Index Troponin T C-Reactive Protein Total Protein Albumin Prealbumin LDL Cholesterol Direct HDL Cholesterol Arterial Blood Glucose Arterial Blood Ionized Calcium Urine WBC (Auto) 02/28/20 02/28/20 02/28/20 11:05 11:33 12:54 WBC RBC Hgb Hct MCV MCH RDW Plt Count Lymph % (Auto) [place] % (Auto) Lymph # (Auto) [place] # (Auto) Seg Neutrophils % Seg Neuts % (Manual) Lymphocytes % (Manual) Monocytes % (Manual) Basophils % (Manual) Seg Neutrophils # Seg Neutrophils # Man Lymphocytes # (Manual) Monocytes # (Manual) Eosinophils # (Manual) Basophils # (Manual) PT INR D-Dimer ABG pH POC ABG pCO2 POC ABG pO2 ABG pO2 ABG HCO3 ABG O2 Saturation ABG Base Excess ABG Hemoglobin ABG Oxyhemoglobin ABG Potassium ABG Glucose Oxyhemoglobin Carboxyhemoglobin Sodium Potassium Chloride Carbon Dioxide BUN Creatinine Glucose POC Glucose 160 H Calcium Ferritin Total Bilirubin Alkaline Phosphatase Lactate Dehydrogenase Total Creatine Kinase CK-MB (CK-2) Rel Index Troponin T C-Reactive Protein 4.70 H Total Protein Albumin Prealbumin 0.090 L LDL Cholesterol Direct HDL Cholesterol Arterial Blood Glucose Arterial Blood Ionized Calcium Urine WBC (Auto) 02/28/20 02/29/20 02/29/20 17:34 00:44 04:05 WBC 19.6 H RBC Hgb Hct MCV MCH 27 L RDW 15.4 H Plt Count Lymph % (Auto) [place] % (Auto) Lymph # (Auto) [place] # (Auto) Seg Neutrophils % Seg Neuts % (Manual) 86.0 H Lymphocytes % (Manual) 7.0 L Monocytes % (Manual) Basophils % (Manual) Seg Neutrophils # Seg Neutrophils # Man 16.9 H Lymphocytes # (Manual) Monocytes # (Manual) 1.2 H Eosinophils # (Manual) Basophils # (Manual) PT INR D-Dimer ABG pH POC ABG pCO2 POC ABG pO2 ABG pO2 ABG HCO3 ABG O2 Saturation ABG Base Excess ABG Hemoglobin ABG Oxyhemoglobin ABG Potassium ABG Glucose Oxyhemoglobin Carboxyhemoglobin Sodium Potassium Chloride Carbon Dioxide BUN Creatinine Glucose POC Glucose 136 H 156 H Calcium Ferritin Total Bilirubin Alkaline Phosphatase Lactate Dehydrogenase Total Creatine Kinase CK-MB (CK-2) Rel Index Troponin T C-Reactive Protein Total Protein Albumin Prealbumin LDL Cholesterol Direct HDL Cholesterol Arterial Blood Glucose Arterial Blood Ionized Calcium Urine WBC (Auto) 02/29/20 02/29/20 02/29/20 04:05 05:14 05:33 WBC RBC Hgb Hct MCV MCH RDW Plt Count Lymph % (Auto) [place] % (Auto) Lymph # (Auto) [place] # (Auto) Seg Neutrophils % Seg Neuts % (Manual) Lymphocytes % (Manual) Monocytes % (Manual) Basophils % (Manual) Seg Neutrophils # Seg Neutrophils # Man Lymphocytes # (Manual) Monocytes # (Manual) Eosinophils # (Manual) Basophils # (Manual) PT INR D-Dimer ABG pH POC ABG pCO2 54.3 H POC ABG pO2 124.8 H ABG pO2 ABG HCO3 ABG O2 Saturation ABG Base Excess ABG Hemoglobin ABG Oxyhemoglobin ABG Potassium ABG Glucose 185 H Oxyhemoglobin Carboxyhemoglobin Sodium 148 H Potassium Chloride Carbon Dioxide 33 H BUN Creatinine < 0.2 L Glucose 173 H POC Glucose 152 H Calcium Ferritin Total Bilirubin Alkaline Phosphatase Lactate Dehydrogenase Total Creatine Kinase CK-MB (CK-2) Rel Index Troponin T C-Reactive Protein Total Protein Albumin Prealbumin LDL Cholesterol Direct HDL Cholesterol Arterial Blood Glucose 185 H Arterial Blood Ionized Calcium Urine WBC (Auto) 03/01/20 03/01/20 03/01/20 00:00 03:45 04:33 WBC 23.1 H RBC Hgb Hct MCV MCH 27 L RDW 15.3 H Plt Count Lymph % (Auto) [place] % (Auto) Lymph # (Auto) [place] # (Auto) Seg Neutrophils % Seg Neuts % (Manual) 92.0 H Lymphocytes % (Manual) 6.0 L Monocytes % (Manual) Basophils % (Manual) Seg Neutrophils # Seg Neutrophils # Man 21.3 H Lymphocytes # (Manual) Monocytes # (Manual) Eosinophils # (Manual) 0.5 H Basophils # (Manual) PT INR D-Dimer ABG pH 7.492 H POC ABG pCO2 POC ABG pO2 ABG pO2 157.1 H ABG HCO3 32.3 H ABG O2 Saturation ABG Base Excess 8.1 H ABG Hemoglobin 13.2 L ABG Oxyhemoglobin ABG Potassium ABG Glucose Oxyhemoglobin Carboxyhemoglobin Sodium Potassium Chloride Carbon Dioxide BUN Creatinine Glucose POC Glucose 109 H Calcium Ferritin Total Bilirubin Alkaline Phosphatase Lactate Dehydrogenase Total Creatine Kinase CK-MB (CK-2) Rel Index Troponin T C-Reactive Protein Total Protein Albumin Prealbumin LDL Cholesterol Direct HDL Cholesterol Arterial Blood Glucose Arterial Blood Ionized Calcium Urine WBC (Auto) 03/01/20 03/01/20 03/01/20 04:33 05:29 12:32 WBC RBC Hgb Hct MCV MCH RDW Plt Count Lymph % (Auto) [place] % (Auto) Lymph # (Auto) [place] # (Auto) Seg Neutrophils % Seg Neuts % (Manual) Lymphocytes % (Manual) Monocytes % (Manual) Basophils % (Manual) Seg Neutrophils # Seg Neutrophils # Man Lymphocytes # (Manual) Monocytes # (Manual) Eosinophils # (Manual) Basophils # (Manual) PT INR D-Dimer ABG pH POC ABG pCO2 POC ABG pO2 ABG pO2 ABG HCO3 ABG O2 Saturation ABG Base Excess ABG Hemoglobin ABG Oxyhemoglobin ABG Potassium ABG Glucose Oxyhemoglobin Carboxyhemoglobin Sodium 146 H Potassium Chloride Carbon Dioxide 32 H BUN Creatinine < 0.2 L Glucose 120 H POC Glucose 120 H 128 H Calcium Ferritin Total Bilirubin Alkaline Phosphatase Lactate Dehydrogenase Total Creatine Kinase CK-MB (CK-2) Rel Index Troponin T C-Reactive Protein Total Protein Albumin Prealbumin LDL Cholesterol Direct HDL Cholesterol Arterial Blood Glucose Arterial Blood Ionized Calcium Urine WBC (Auto) 03/01/20 03/01/20 03/02/20 17:38 23:46 06:13 WBC RBC Hgb Hct MCV MCH RDW Plt Count Lymph % (Auto) [place] % (Auto) Lymph # (Auto) [place] # (Auto) Seg Neutrophils % Seg Neuts % (Manual) Lymphocytes % (Manual) Monocytes % (Manual) Basophils % (Manual) Seg Neutrophils # Seg Neutrophils # Man Lymphocytes # (Manual) Monocytes # (Manual) Eosinophils # (Manual) Basophils # (Manual) PT INR D-Dimer ABG pH POC ABG pCO2 POC ABG pO2 ABG pO2 ABG HCO3 ABG O2 Saturation ABG Base Excess ABG Hemoglobin ABG Oxyhemoglobin ABG Potassium ABG Glucose Oxyhemoglobin Carboxyhemoglobin Sodium Potassium Chloride Carbon Dioxide BUN Creatinine Glucose POC Glucose 114 H 121 H 120 H Calcium Ferritin Total Bilirubin Alkaline Phosphatase Lactate Dehydrogenase Total Creatine Kinase CK-MB (CK-2) Rel Index Troponin T C-Reactive Protein Total Protein Albumin Prealbumin LDL Cholesterol Direct HDL Cholesterol Arterial Blood Glucose Arterial Blood Ionized Calcium Urine WBC (Auto) 03/02/20 03/02/20 03/03/20 09:47 09:47 10:21 WBC 23.6 H RBC Hgb Hct MCV MCH RDW 15.3 H Plt Count 494 H Lymph % (Auto) [place] % (Auto) Lymph # (Auto) [place] # (Auto) Seg Neutrophils % Seg Neuts % (Manual) 85.0 H Lymphocytes % (Manual) 6.0 L Monocytes % (Manual) Basophils % (Manual) Seg Neutrophils # Seg Neutrophils # Man 20.1 H Lymphocytes # (Manual) Monocytes # (Manual) 1.7 H Eosinophils # (Manual) Basophils # (Manual) PT INR D-Dimer ABG pH POC ABG pCO2 POC ABG pO2 ABG pO2 ABG HCO3 ABG O2 Saturation ABG Base Excess ABG Hemoglobin ABG Oxyhemoglobin ABG Potassium 3.3 L ABG Glucose 158 H Oxyhemoglobin Carboxyhemoglobin Sodium Potassium Chloride Carbon Dioxide BUN Creatinine < 0.2 L Glucose 177 H POC Glucose Calcium Ferritin Total Bilirubin Alkaline Phosphatase Lactate Dehydrogenase Total Creatine Kinase CK-MB (CK-2) Rel Index Troponin T C-Reactive Protein Total Protein Albumin Prealbumin LDL Cholesterol Direct HDL Cholesterol Arterial Blood Glucose 158 H Arterial Blood Ionized Calcium Urine WBC (Auto) 03/03/20 03/04/20 03/04/20 21:30 00:00 12:23 WBC RBC Hgb Hct MCV MCH RDW Plt Count Lymph % (Auto) [place] % (Auto) Lymph # (Auto) [place] # (Auto) Seg Neutrophils % Seg Neuts % (Manual) Lymphocytes % (Manual) Monocytes % (Manual) Basophils % (Manual) Seg Neutrophils # Seg Neutrophils # Man Lymphocytes # (Manual) Monocytes # (Manual) Eosinophils # (Manual) Basophils # (Manual) PT INR D-Dimer ABG pH 7.328 L POC ABG pCO2 POC ABG pO2 ABG pO2 68.4 L ABG HCO3 35.0 H ABG O2 Saturation 93.9 L ABG Base Excess 6.8 H ABG Hemoglobin 12.7 L ABG Oxyhemoglobin ABG Potassium ABG Glucose Oxyhemoglobin 91.9 L Carboxyhemoglobin Sodium Potassium Chloride Carbon Dioxide BUN Creatinine Glucose POC Glucose 187 H 163 H Calcium Ferritin Total Bilirubin Alkaline Phosphatase Lactate Dehydrogenase Total Creatine Kinase CK-MB (CK-2) Rel Index Troponin T C-Reactive Protein Total Protein Albumin Prealbumin LDL Cholesterol Direct HDL Cholesterol Arterial Blood Glucose Arterial Blood Ionized Calcium Urine WBC (Auto) 03/04/20 03/04/20 03/05/20 18:15 21:30 06:02 WBC RBC Hgb Hct MCV MCH RDW Plt Count Lymph % (Auto) [place] % (Auto) Lymph # (Auto) [place] # (Auto) Seg Neutrophils % Seg Neuts % (Manual) Lymphocytes % (Manual) Monocytes % (Manual) Basophils % (Manual) Seg Neutrophils # Seg Neutrophils # Man Lymphocytes # (Manual) Monocytes # (Manual) Eosinophils # (Manual) Basophils # (Manual) PT INR D-Dimer ABG pH 7.297 L POC ABG pCO2 POC ABG pO2 ABG pO2 ABG HCO3 41.0 H ABG O2 Saturation ABG Base Excess 11.0 H ABG Hemoglobin 13.1 L ABG Oxyhemoglobin ABG Potassium ABG Glucose Oxyhemoglobin 94.5 L Carboxyhemoglobin Sodium Potassium Chloride Carbon Dioxide BUN Creatinine Glucose POC Glucose 192 H 127 H Calcium Ferritin Total Bilirubin Alkaline Phosphatase Lactate Dehydrogenase Total Creatine Kinase CK-MB (CK-2) Rel Index Troponin T C-Reactive Protein Total Protein Albumin Prealbumin LDL Cholesterol Direct HDL Cholesterol Arterial Blood Glucose Arterial Blood Ionized Calcium Urine WBC (Auto) 03/05/20 03/05/20 03/06/20 12:09 16:42 00:24 WBC RBC Hgb Hct MCV MCH RDW Plt Count Lymph % (Auto) [place] % (Auto) Lymph # (Auto) [place] # (Auto) Seg Neutrophils % Seg Neuts % (Manual) Lymphocytes % (Manual) Monocytes % (Manual) Basophils % (Manual) Seg Neutrophils # Seg Neutrophils # Man Lymphocytes # (Manual) Monocytes # (Manual) Eosinophils # (Manual) Basophils # (Manual) PT INR D-Dimer ABG pH POC ABG pCO2 POC ABG pO2 ABG pO2 ABG HCO3 ABG O2 Saturation ABG Base Excess ABG Hemoglobin ABG Oxyhemoglobin ABG Potassium ABG Glucose Oxyhemoglobin Carboxyhemoglobin Sodium Potassium Chloride Carbon Dioxide BUN Creatinine Glucose POC Glucose 147 H 114 H 134 H Calcium Ferritin Total Bilirubin Alkaline Phosphatase Lactate Dehydrogenase Total Creatine Kinase CK-MB (CK-2) Rel Index Troponin T C-Reactive Protein Total Protein Albumin Prealbumin LDL Cholesterol Direct HDL Cholesterol Arterial Blood Glucose Arterial Blood Ionized Calcium Urine WBC (Auto) 03/06/20 03/06/20 03/06/20 04:34 05:53 06:08 WBC 25.4 H RBC Hgb 10.5 L Hct 32.7 L MCV MCH 27 L RDW 15.3 H Plt Count 634 H Lymph % (Auto) [place] % (Auto) Lymph # (Auto) [place] # (Auto) Seg Neutrophils % Seg Neuts % (Manual) 88.0 H Lymphocytes % (Manual) 2.0 L Monocytes % (Manual) 8.0 H Basophils % (Manual) Seg Neutrophils # Seg Neutrophils # Man 22.4 H Lymphocytes # (Manual) 0.5 L Monocytes # (Manual) 2.0 H Eosinophils # (Manual) Basophils # (Manual) PT INR D-Dimer ABG pH POC ABG pCO2 POC ABG pO2 ABG pO2 ABG HCO3 37.9 H ABG O2 Saturation ABG Base Excess 11.4 H ABG Hemoglobin 10.6 L ABG Oxyhemoglobin ABG Potassium ABG Glucose Oxyhemoglobin 94.7 L Carboxyhemoglobin Sodium Potassium Chloride Carbon Dioxide BUN Creatinine Glucose POC Glucose 135 H Calcium Ferritin Total Bilirubin Alkaline Phosphatase Lactate Dehydrogenase Total Creatine Kinase CK-MB (CK-2) Rel Index Troponin T C-Reactive Protein Total Protein Albumin Prealbumin LDL Cholesterol Direct HDL Cholesterol Arterial Blood Glucose Arterial Blood Ionized Calcium Urine WBC (Auto) 03/06/20 03/06/20 03/06/20 06:08 12:19 19:10 WBC RBC Hgb Hct MCV MCH RDW Plt Count Lymph % (Auto) [place] % (Auto) Lymph # (Auto) [place] # (Auto) Seg Neutrophils % Seg Neuts % (Manual) Lymphocytes % (Manual) Monocytes % (Manual) Basophils % (Manual) Seg Neutrophils # Seg Neutrophils # Man Lymphocytes # (Manual) Monocytes # (Manual) Eosinophils # (Manual) Basophils # (Manual) PT INR D-Dimer ABG pH POC ABG pCO2 POC ABG pO2 ABG pO2 ABG HCO3 ABG O2 Saturation ABG Base Excess ABG Hemoglobin ABG Oxyhemoglobin ABG Potassium ABG Glucose Oxyhemoglobin Carboxyhemoglobin Sodium 150 H D Potassium Chloride Carbon Dioxide 39 H D BUN 23 H Creatinine < 0.2 L Glucose 144 H POC Glucose 169 H 152 H Calcium Ferritin Total Bilirubin Alkaline Phosphatase Lactate Dehydrogenase Total Creatine Kinase CK-MB (CK-2) Rel Index Troponin T C-Reactive Protein Total Protein Albumin 3.3 L Prealbumin LDL Cholesterol Direct HDL Cholesterol Arterial Blood Glucose Arterial Blood Ionized Calcium Urine WBC (Auto) 03/06/20 03/07/20 03/07/20 23:58 04:25 04:25 WBC 22.1 H RBC Hgb 10.9 L Hct 32.9 L MCV MCH RDW 15.5 H Plt Count 739 H Lymph % (Auto) 7.8 L [place] % (Auto) Lymph # (Auto) [place] # (Auto) 1.3 H Seg Neutrophils % 85.5 H Seg Neuts % (Manual) Lymphocytes % (Manual) Monocytes % (Manual) Basophils % (Manual) Seg Neutrophils # 18.9 H Seg Neutrophils # Man Lymphocytes # (Manual) Monocytes # (Manual) Eosinophils # (Manual) Basophils # (Manual) PT INR D-Dimer ABG pH POC ABG pCO2 POC ABG pO2 ABG pO2 ABG HCO3 ABG O2 Saturation ABG Base Excess ABG Hemoglobin ABG Oxyhemoglobin ABG Potassium ABG Glucose Oxyhemoglobin Carboxyhemoglobin Sodium 146 H Potassium Chloride Carbon Dioxide 37 H BUN Creatinine < 0.2 L Glucose 118 H POC Glucose 111 H Calcium Ferritin Total Bilirubin Alkaline Phosphatase Lactate Dehydrogenase Total Creatine Kinase CK-MB (CK-2) Rel Index Troponin T C-Reactive Protein Total Protein Albumin 3.7 L Prealbumin LDL Cholesterol Direct HDL Cholesterol Arterial Blood Glucose Arterial Blood Ionized Calcium Urine WBC (Auto) 03/07/20 03/07/2003/07/20 05:20 17:45 23:32 WBC RBC Hgb Hct MCV MCH RDW Plt Count Lymph % (Auto) [place] % (Auto) Lymph # (Auto) [place] # (Auto) Seg Neutrophils % Seg Neuts % (Manual) Lymphocytes % (Manual) Monocytes % (Manual) Basophils % (Manual) Seg Neutrophils # Seg Neutrophils # Man Lymphocytes # (Manual) Monocytes # (Manual) Eosinophils # (Manual) Basophils # (Manual) PT INR D-Dimer ABG pH POC ABG pCO2 POC ABG pO2 ABG pO2 ABG HCO3 ABG O2 Saturation ABG Base Excess ABG Hemoglobin ABG Oxyhemoglobin ABG Potassium ABG Glucose Oxyhemoglobin Carboxyhemoglobin Sodium Potassium Chloride Carbon Dioxide BUN Creatinine Glucose POC Glucose 113 H 124 H 210 H Calcium Ferritin Total Bilirubin Alkaline Phosphatase Lactate Dehydrogenase Total Creatine Kinase CK-MB (CK-2) Rel Index Troponin T C-Reactive Protein Total Protein Albumin Prealbumin LDL Cholesterol Direct HDL Cholesterol Arterial Blood Glucose Arterial Blood Ionized Calcium Urine WBC (Auto) 03/08/20 03/08/20 03/08/20 05:35 06:43 06:43 WBC 28.9 H RBC 3.53 L Hgb 9.7 L Hct 30.3 L MCV MCH RDW 15.6 H Plt Count 578 H Lymph % (Auto) [place] % (Auto) Lymph # (Auto) [place] # (Auto) Seg Neutrophils % Seg Neuts % (Manual) 93.0 H Lymphocytes % (Manual) 4.0 L Monocytes % (Manual) Basophils % (Manual) Seg Neutrophils # Seg Neutrophils # Man 26.9 H Lymphocytes # (Manual) Monocytes # (Manual) Eosinophils # (Manual) Basophils # (Manual) PT INR D-Dimer ABG pH POC ABG pCO2 POC ABG pO2 ABG pO2 ABG HCO3 ABG O2 Saturation ABG Base Excess ABG Hemoglobin ABG Oxyhemoglobin ABG Potassium ABG Glucose Oxyhemoglobin Carboxyhemoglobin Sodium 146 H Potassium Chloride Carbon Dioxide 35 H BUN 34 H Creatinine 0.3 L D Glucose 125 H POC Glucose 147 H Calcium Ferritin Total Bilirubin Alkaline Phosphatase Lactate Dehydrogenase Total Creatine Kinase CK-MB (CK-2) Rel Index Troponin T C-Reactive Protein Total Protein 5.9 L Albumin 3.2 L Prealbumin LDL Cholesterol Direct HDL Cholesterol Arterial Blood Glucose Arterial Blood Ionized Calcium Urine WBC (Auto) 03/08/20 03/08/20 03/08/20 08:57 11:14 12:34 WBC RBC Hgb Hct MCV MCH RDW Plt Count Lymph % (Auto) [place] % (Auto) Lymph # (Auto) [place] # (Auto) Seg Neutrophils % Seg Neuts % (Manual) Lymphocytes % (Manual) Monocytes % (Manual) Basophils % (Manual) Seg Neutrophils # Seg Neutrophils # Man Lymphocytes # (Manual) Monocytes # (Manual) Eosinophils # (Manual) Basophils # (Manual) PT INR D-Dimer ABG pH POC ABG pCO2 63.1 H POC ABG pO2 ABG pO2 ABG HCO3 ABG O2 Saturation ABG Base Excess ABG Hemoglobin 10.9 L ABG Oxyhemoglobin ABG Potassium ABG Glucose 176 H Oxyhemoglobin Carboxyhemoglobin Sodium Potassium Chloride Carbon Dioxide BUN Creatinine Glucose POC Glucose 171 H Calcium Ferritin Total Bilirubin Alkaline Phosphatase Lactate Dehydrogenase Total Creatine Kinase CK-MB (CK-2) Rel Index Troponin T C-Reactive Protein Total Protein Albumin Prealbumin LDL Cholesterol Direct HDL Cholesterol Arterial Blood Glucose 176 H Arterial Blood Ionized Calcium 4.5 L Urine WBC (Auto) 10.0 H 03/08/20 03/08/20 03/09/20 18:02 23:43 05:49 WBC RBC Hgb Hct MCV MCH RDW Plt Count Lymph % (Auto) [place] % (Auto) Lymph # (Auto) [place] # (Auto) Seg Neutrophils % Seg Neuts % (Manual) Lymphocytes % (Manual) Monocytes % (Manual) Basophils % (Manual) Seg Neutrophils # Seg Neutrophils # Man Lymphocytes # (Manual) Monocytes # (Manual) Eosinophils # (Manual) Basophils # (Manual) PT INR D-Dimer ABG pH POC ABG pCO2 POC ABG pO2 ABG pO2 ABG HCO3 ABG O2 Saturation ABG Base Excess ABG Hemoglobin ABG Oxyhemoglobin ABG Potassium ABG Glucose Oxyhemoglobin Carboxyhemoglobin Sodium Potassium Chloride Carbon Dioxide BUN Creatinine Glucose POC Glucose 157 H 134 H 163 H Calcium Ferritin Total Bilirubin Alkaline Phosphatase Lactate Dehydrogenase Total Creatine Kinase CK-MB (CK-2) Rel Index Troponin T C-Reactive Protein Total Protein Albumin Prealbumin LDL Cholesterol Direct HDL Cholesterol Arterial Blood Glucose Arterial Blood Ionized Calcium Urine WBC (Auto) 03/09/20 03/09/20 03/09/20 08:35 08:35 12:11 WBC 23.4 H RBC 3.36 L Hgb 9.3 L Hct 28.8 L MCV MCH RDW 15.9 H Plt Count 521 H Lymph % (Auto) [place] % (Auto) Lymph # (Auto) [place] # (Auto) Seg Neutrophils % Seg Neuts % (Manual) 87.0 H Lymphocytes % (Manual) 4.0 L Monocytes % (Manual) 9.0 H Basophils % (Manual) Seg Neutrophils # Seg Neutrophils # Man 20.4 H Lymphocytes # (Manual) 0.9 L Monocytes # (Manual) 2.1 H Eosinophils # (Manual) Basophils # (Manual) PT INR D-Dimer ABG pH POC ABG pCO2 POC ABG pO2 ABG pO2 ABG HCO3 ABG O2 Saturation ABG Base Excess ABG Hemoglobin ABG Oxyhemoglobin ABG Potassium ABG Glucose Oxyhemoglobin Carboxyhemoglobin Sodium 147 H Potassium Chloride Carbon Dioxide 37 H BUN 63 H Creatinine Glucose 154 H POC Glucose 128 H Calcium Ferritin Total Bilirubin Alkaline Phosphatase Lactate Dehydrogenase Total Creatine Kinase CK-MB (CK-2) Rel Index Troponin T C-Reactive Protein Total Protein Albumin Prealbumin LDL Cholesterol Direct HDL Cholesterol Arterial Blood Glucose Arterial Blood Ionized Calcium Urine WBC (Auto) 03/09/20 03/10/20 03/10/20 17:51 00:25 05:41 WBC RBC Hgb Hct MCV MCH RDW Plt Count Lymph % (Auto) [place] % (Auto) Lymph # (Auto) [place] # (Auto) Seg Neutrophils % Seg Neuts % (Manual) Lymphocytes % (Manual) Monocytes % (Manual) Basophils % (Manual) Seg Neutrophils # Seg Neutrophils # Man Lymphocytes # (Manual) Monocytes # (Manual) Eosinophils # (Manual) Basophils # (Manual) PT INR D-Dimer ABG pH POC ABG pCO2 POC ABG pO2 ABG pO2 ABG HCO3 ABG O2 Saturation ABG Base Excess ABG Hemoglobin ABG Oxyhemoglobin ABG Potassium ABG Glucose Oxyhemoglobin Carboxyhemoglobin Sodium Potassium Chloride Carbon Dioxide BUN Creatinine Glucose POC Glucose 127 H 128 H 153 H Calcium Ferritin Total Bilirubin Alkaline Phosphatase Lactate Dehydrogenase Total Creatine Kinase CK-MB (CK-2) Rel Index Troponin T C-Reactive Protein Total Protein Albumin Prealbumin LDL Cholesterol Direct HDL Cholesterol Arterial Blood Glucose Arterial Blood Ionized Calcium Urine WBC (Auto) 03/10/20 03/10/20 03/10/20 06:14 06:14 12:02 WBC 18.3 H RBC 3.45 L Hgb 9.5 L Hct 29.5 L MCV MCH RDW 16.1 H Plt Count 494 H Lymph % (Auto) [place] % (Auto) Lymph # (Auto) [place] # (Auto) Seg Neutrophils % Seg Neuts % (Manual) 95.0 H Lymphocytes % (Manual) 1.0 L Monocytes % (Manual) Basophils % (Manual) Seg Neutrophils # Seg Neutrophils # Man 17.4 H Lymphocytes # (Manual) 0.2 L Monocytes # (Manual) Eosinophils # (Manual) Basophils # (Manual) PT INR D-Dimer ABG pH POC ABG pCO2 POC ABG pO2 ABG pO2 ABG HCO3 ABG O2 Saturation ABG Base Excess ABG Hemoglobin ABG Oxyhemoglobin ABG Potassium ABG Glucose Oxyhemoglobin Carboxyhemoglobin Sodium 149 H Potassium Chloride Carbon Dioxide 35 H BUN 34 H Creatinine 0.2 L D Glucose 177 H POC Glucose 151 H Calcium Ferritin Total Bilirubin Alkaline Phosphatase Lactate Dehydrogenase Total Creatine Kinase CK-MB (CK-2) Rel Index Troponin T C-Reactive Protein Total Protein Albumin Prealbumin LDL Cholesterol Direct HDL Cholesterol Arterial Blood Glucose Arterial Blood Ionized Calcium Urine WBC (Auto) 03/10/20 03/10/20 03/11/20 17:41 23:53 05:02 WBC RBC Hgb Hct MCV MCH RDW Plt Count Lymph % (Auto) [place] % (Auto) Lymph # (Auto) [place] # (Auto) Seg Neutrophils % Seg Neuts % (Manual) Lymphocytes % (Manual) Monocytes % (Manual) Basophils % (Manual) Seg Neutrophils # Seg Neutrophils # Man Lymphocytes # (Manual) Monocytes # (Manual) Eosinophils # (Manual) Basophils # (Manual) PT INR D-Dimer ABG pH POC ABG pCO2 POC ABG pO2 ABG pO2 ABG HCO3 ABG O2 Saturation ABG Base Excess ABG Hemoglobin ABG Oxyhemoglobin ABG Potassium ABG Glucose Oxyhemoglobin Carboxyhemoglobin Sodium Potassium Chloride Carbon Dioxide BUN Creatinine Glucose POC Glucose 168 H 142 H 146 H Calcium Ferritin Total Bilirubin Alkaline Phosphatase Lactate Dehydrogenase Total Creatine Kinase CK-MB (CK-2) Rel Index Troponin T C-Reactive Protein Total Protein Albumin Prealbumin LDL Cholesterol Direct HDL Cholesterol Arterial Blood Glucose Arterial Blood Ionized Calcium Urine WBC (Auto) 03/11/20 03/11/20 03/11/20 11:30 14:01 14:01 WBC 19.7 H RBC 3.04 L Hgb 8.7 L Hct 25.8 L MCV MCH RDW 15.6 H Plt Count Lymph % (Auto) [place] % (Auto) Lymph # (Auto) [place] # (Auto) Seg Neutrophils % Seg Neuts % (Manual) Lymphocytes % (Manual) Monocytes % (Manual) Basophils % (Manual) Seg Neutrophils # Seg Neutrophils # Man Lymphocytes # (Manual) Monocytes # (Manual) Eosinophils # (Manual) Basophils # (Manual) PT INR D-Dimer ABG pH POC ABG pCO2 POC ABG pO2 ABG pO2 ABG HCO3 ABG O2 Saturation ABG Base Excess ABG Hemoglobin ABG Oxyhemoglobin ABG Potassium ABG Glucose Oxyhemoglobin Carboxyhemoglobin Sodium 151 H Potassium Chloride Carbon Dioxide 37 H BUN Creatinine < 0.2 L Glucose 171 H POC Glucose 248 H Calcium Ferritin Total Bilirubin Alkaline Phosphatase Lactate Dehydrogenase Total Creatine Kinase CK-MB (CK-2) Rel Index Troponin T C-Reactive Protein Total Protein Albumin Prealbumin LDL Cholesterol Direct HDL Cholesterol Arterial Blood Glucose Arterial Blood Ionized Calcium Urine WBC (Auto) 03/11/20 03/11/20 03/12/20 17:09 23:52 04:39 WBC 19.9 H RBC 3.16 L Hgb 8.9 L Hct 27.5 L MCV MCH RDW 15.7 H Plt Count Lymph % (Auto) 6.8 L [place] % (Auto) Lymph # (Auto) [place] # (Auto) 1.2 H Seg Neutrophils % 86.0 H Seg Neuts % (Manual) Lymphocytes % (Manual) Monocytes % (Manual) Basophils % (Manual) Seg Neutrophils # 17.1 H Seg Neutrophils # Man Lymphocytes # (Manual) Monocytes # (Manual) Eosinophils # (Manual) Basophils # (Manual) PT INR D-Dimer ABG pH POC ABG pCO2 POC ABG pO2 ABG pO2 ABG HCO3 ABG O2 Saturation ABG Base Excess ABG Hemoglobin ABG Oxyhemoglobin ABG Potassium ABG Glucose Oxyhemoglobin Carboxyhemoglobin Sodium Potassium Chloride Carbon Dioxide BUN Creatinine Glucose POC Glucose 124 H 131 H Calcium Ferritin Total Bilirubin Alkaline Phosphatase Lactate Dehydrogenase Total Creatine Kinase CK-MB (CK-2) Rel Index Troponin T C-Reactive Protein Total Protein Albumin Prealbumin LDL Cholesterol Direct HDL Cholesterol Arterial Blood Glucose Arterial Blood Ionized Calcium Urine WBC (Auto) 03/12/20 03/12/20 03/12/20 04:39 05:28 11:34 WBC RBC Hgb Hct MCV MCH RDW Plt Count Lymph % (Auto) [place] % (Auto) Lymph # (Auto) [place] # (Auto) Seg Neutrophils % Seg Neuts % (Manual) Lymphocytes % (Manual) Monocytes % (Manual) Basophils % (Manual) Seg Neutrophils # Seg Neutrophils # Man Lymphocytes # (Manual) Monocytes # (Manual) Eosinophils # (Manual) Basophils # (Manual) PT INR D-Dimer ABG pH POC ABG pCO2 POC ABG pO2 ABG pO2 ABG HCO3 ABG O2 Saturation ABG Base Excess ABG Hemoglobin ABG Oxyhemoglobin ABG Potassium ABG Glucose Oxyhemoglobin Carboxyhemoglobin Sodium 147 H Potassium Chloride Carbon Dioxide 40 H BUN Creatinine < 0.2 L Glucose 175 H POC Glucose 167 H 144 H Calcium Ferritin Total Bilirubin Alkaline Phosphatase Lactate Dehydrogenase Total Creatine Kinase CK-MB (CK-2) Rel Index Troponin T C-Reactive Protein Total Protein Albumin Prealbumin LDL Cholesterol Direct HDL Cholesterol Arterial Blood Glucose Arterial Blood Ionized Calcium Urine WBC (Auto) 03/12/20 03/12/20 03/13/20 17:32 23:57 05:57 WBC RBC Hgb Hct MCV MCH RDW Plt Count Lymph % (Auto) [place] % (Auto) Lymph # (Auto) [place] # (Auto) Seg Neutrophils % Seg Neuts % (Manual) Lymphocytes % (Manual) Monocytes % (Manual) Basophils % (Manual) Seg Neutrophils # Seg Neutrophils # Man Lymphocytes # (Manual) Monocytes # (Manual) Eosinophils # (Manual) Basophils # (Manual) PT INR D-Dimer ABG pH POC ABG pCO2 POC ABG pO2 ABG pO2 ABG HCO3 ABG O2 Saturation ABG Base Excess ABG Hemoglobin ABG Oxyhemoglobin ABG Potassium ABG Glucose Oxyhemoglobin Carboxyhemoglobin Sodium Potassium Chloride Carbon Dioxide BUN Creatinine Glucose POC Glucose 141 H 137 H 161 H Calcium Ferritin Total Bilirubin Alkaline Phosphatase Lactate Dehydrogenase Total Creatine Kinase CK-MB (CK-2) Rel Index Troponin T C-Reactive Protein Total Protein Albumin Prealbumin LDL Cholesterol Direct HDL Cholesterol Arterial Blood Glucose Arterial Blood Ionized Calcium Urine WBC (Auto) 03/13/20 03/13/20 03/13/20 12:28 14:14 18:39 WBC RBC Hgb Hct MCV MCH RDW Plt Count Lymph % (Auto) [place] % (Auto) Lymph # (Auto) [place] # (Auto) Seg Neutrophils % Seg Neuts % (Manual) Lymphocytes % (Manual) Monocytes % (Manual) Basophils % (Manual) Seg Neutrophils # Seg Neutrophils # Man Lymphocytes # (Manual) Monocytes # (Manual) Eosinophils # (Manual) Basophils # (Manual) PT INR D-Dimer ABG pH POC ABG pCO2 POC ABG pO2 ABG pO2 ABG HCO3 ABG O2 Saturation ABG Base Excess ABG Hemoglobin ABG Oxyhemoglobin ABG Potassium ABG Glucose Oxyhemoglobin Carboxyhemoglobin Sodium Potassium Chloride Carbon Dioxide 39 H BUN Creatinine < 0.2 L Glucose 129 H POC Glucose 130 H 125 H Calcium Ferritin Total Bilirubin Alkaline Phosphatase Lactate Dehydrogenase Total Creatine Kinase CK-MB (CK-2) Rel Index Troponin T C-Reactive Protein Total Protein Albumin Prealbumin LDL Cholesterol Direct HDL Cholesterol Arterial Blood Glucose Arterial Blood Ionized Calcium Urine WBC (Auto) 03/13/20 03/14/20 03/14/20 23:33 05:24 08:07 WBC 16.8 H RBC 2.81 L Hgb 7.9 L Hct 23.9 L MCV MCH RDW 15.9 H Plt Count Lymph % (Auto) [place] % (Auto) Lymph # (Auto) [place] # (Auto) Seg Neutrophils % Seg Neuts % (Manual) 84.0 H Lymphocytes % (Manual) 10.0 L Monocytes % (Manual) Basophils % (Manual) Seg Neutrophils # Seg Neutrophils # Man 14.1 H Lymphocytes # (Manual) Monocytes # (Manual) Eosinophils # (Manual) Basophils # (Manual) PT INR D-Dimer ABG pH POC ABG pCO2 POC ABG pO2 ABG pO2 ABG HCO3 ABG O2 Saturation ABG Base Excess ABG Hemoglobin ABG Oxyhemoglobin ABG Potassium ABG Glucose Oxyhemoglobin Carboxyhemoglobin Sodium Potassium Chloride Carbon Dioxide BUN Creatinine Glucose POC Glucose 146 H 125 H Calcium Ferritin Total Bilirubin Alkaline Phosphatase Lactate Dehydrogenase Total Creatine Kinase CK-MB (CK-2) Rel Index Troponin T C-Reactive Protein Total Protein Albumin Prealbumin LDL Cholesterol Direct HDL Cholesterol Arterial Blood Glucose Arterial Blood Ionized Calcium Urine WBC (Auto) 03/14/20 03/14/20 03/14/20 08:07 12:21 18:26 WBC RBC Hgb Hct MCV MCH RDW Plt Count Lymph % (Auto) [place] % (Auto) Lymph # (Auto) [place] # (Auto) Seg Neutrophils % Seg Neuts % (Manual) Lymphocytes % (Manual) Monocytes % (Manual) Basophils % (Manual) Seg Neutrophils # Seg Neutrophils # Man Lymphocytes # (Manual) Monocytes # (Manual) Eosinophils # (Manual) Basophils # (Manual) PT INR D-Dimer ABG pH POC ABG pCO2 POC ABG pO2 ABG pO2 ABG HCO3 ABG O2 Saturation ABG Base Excess ABG Hemoglobin ABG Oxyhemoglobin ABG Potassium ABG Glucose Oxyhemoglobin Carboxyhemoglobin Sodium Potassium Chloride 97.0 L Carbon Dioxide 37 H BUN Creatinine < 0.2 L Glucose 129 H POC Glucose 109 H 142 H Calcium 8.3 L Ferritin Total Bilirubin Alkaline Phosphatase Lactate Dehydrogenase Total Creatine Kinase CK-MB (CK-2) Rel Index Troponin T C-Reactive Protein Total Protein Albumin Prealbumin LDL Cholesterol Direct HDL Cholesterol Arterial Blood Glucose Arterial Blood Ionized Calcium Urine WBC (Auto) 03/14/20 03/15/20 03/15/20 23:57 05:46 08:06 WBC 19.7 H RBC 3.29 L Hgb 9.1 L Hct 28.0 L MCV MCH RDW 15.9 H Plt Count Lymph % (Auto) [place] % (Auto) Lymph # (Auto) [place] # (Auto) Seg Neutrophils % Seg Neuts % (Manual) Lymphocytes % (Manual) Monocytes % (Manual) Basophils % (Manual) Seg Neutrophils # Seg Neutrophils # Man Lymphocytes # (Manual) Monocytes # (Manual) Eosinophils # (Manual) Basophils # (Manual) PT INR D-Dimer ABG pH POC ABG pCO2 POC ABG pO2 ABG pO2 ABG HCO3 ABG O2 Saturation ABG Base Excess ABG Hemoglobin ABG Oxyhemoglobin ABG Potassium ABG Glucose Oxyhemoglobin Carboxyhemoglobin Sodium Potassium Chloride Carbon Dioxide BUN Creatinine Glucose POC Glucose 157 H 118 H Calcium Ferritin Total Bilirubin Alkaline Phosphatase Lactate Dehydrogenase Total Creatine Kinase CK-MB (CK-2) Rel Index Troponin T C-Reactive Protein Total Protein Albumin Prealbumin LDL Cholesterol Direct HDL Cholesterol Arterial Blood Glucose Arterial Blood Ionized Calcium Urine WBC (Auto) 03/15/20 03/15/20 03/15/20 08:06 12:44 18:09 WBC RBC Hgb Hct MCV MCH RDW Plt Count Lymph % (Auto) [place] % (Auto) Lymph # (Auto) [place] # (Auto) Seg Neutrophils % Seg Neuts % (Manual) Lymphocytes % (Manual) Monocytes % (Manual) Basophils % (Manual) Seg Neutrophils # Seg Neutrophils # Man Lymphocytes # (Manual) Monocytes # (Manual) Eosinophils # (Manual) Basophils # (Manual) PT INR D-Dimer ABG pH POC ABG pCO2 POC ABG pO2 ABG pO2 ABG HCO3 ABG O2 Saturation ABG Base Excess ABG Hemoglobin ABG Oxyhemoglobin ABG Potassium ABG Glucose Oxyhemoglobin Carboxyhemoglobin Sodium 136 L Potassium Chloride 93.6 L Carbon Dioxide 37 H BUN Creatinine < 0.2 L Glucose 132 H POC Glucose 151 H 164 H Calcium Ferritin Total Bilirubin Alkaline Phosphatase Lactate Dehydrogenase Total Creatine Kinase CK-MB (CK-2) Rel Index Troponin T C-Reactive Protein Total Protein Albumin Prealbumin LDL Cholesterol Direct HDL Cholesterol Arterial Blood Glucose Arterial Blood Ionized Calcium Urine WBC (Auto) 03/15/20 03/16/20 03/16/20 23:26 05:39 11:58 WBC RBC Hgb Hct MCV MCH RDW Plt Count Lymph % (Auto) [place] % (Auto) Lymph # (Auto) [place] # (Auto) Seg Neutrophils % Seg Neuts % (Manual) Lymphocytes % (Manual) Monocytes % (Manual) Basophils % (Manual) Seg Neutrophils # Seg Neutrophils # Man Lymphocytes # (Manual) Monocytes # (Manual) Eosinophils # (Manual) Basophils # (Manual) PT INR D-Dimer ABG pH POC ABG pCO2 POC ABG pO2 ABG pO2 ABG HCO3 ABG O2 Saturation ABG Base Excess ABG Hemoglobin ABG Oxyhemoglobin ABG Potassium ABG Glucose Oxyhemoglobin Carboxyhemoglobin Sodium Potassium Chloride Carbon Dioxide BUN Creatinine Glucose POC Glucose 136 H 116 H 109 H Calcium Ferritin Total Bilirubin Alkaline Phosphatase Lactate Dehydrogenase Total Creatine Kinase CK-MB (CK-2) Rel Index Troponin T C-Reactive Protein Total Protein Albumin Prealbumin LDL Cholesterol Direct HDL Cholesterol Arterial Blood Glucose Arterial Blood Ionized Calcium Urine WBC (Auto) 03/16/20 03/17/20 03/17/20 23:56 04:40 04:40 WBC 18.0 H RBC 3.33 L Hgb 9.5 L Hct 28.8 L MCV MCH RDW 16.4 H Plt Count 499 H Lymph % (Auto) [place] % (Auto) Lymph # (Auto) [place] # (Auto) Seg Neutrophils % Seg Neuts % (Manual) 82.0 H Lymphocytes % (Manual) 8.0 L Monocytes % (Manual) Basophils % (Manual) Seg Neutrophils # Seg Neutrophils # Man 14.8 H Lymphocytes # (Manual) Monocytes # (Manual) 1.3 H Eosinophils # (Manual) Basophils # (Manual) 0.2 H PT INR D-Dimer ABG pH POC ABG pCO2 POC ABG pO2 ABG pO2 ABG HCO3 ABG O2 Saturation ABG Base Excess ABG Hemoglobin ABG Oxyhemoglobin ABG Potassium ABG Glucose Oxyhemoglobin Carboxyhemoglobin Sodium Potassium Chloride 97.7 L Carbon Dioxide 32 H BUN Creatinine < 0.2 L Glucose 114 H POC Glucose 131 H Calcium Ferritin Total Bilirubin Alkaline Phosphatase Lactate Dehydrogenase Total Creatine Kinase CK-MB (CK-2) Rel Index Troponin T C-Reactive Protein Total Protein Albumin Prealbumin LDL Cholesterol Direct HDL Cholesterol Arterial Blood Glucose Arterial Blood Ionized Calcium Urine WBC (Auto) 03/18/20 03/18/20 03/18/20 00:21 05:21 11:55 WBC RBC Hgb Hct MCV MCH RDW Plt Count Lymph % (Auto) [place] % (Auto) Lymph # (Auto) [place] # (Auto) Seg Neutrophils % Seg Neuts % (Manual) Lymphocytes % (Manual) Monocytes % (Manual) Basophils % (Manual) Seg Neutrophils # Seg Neutrophils # Man Lymphocytes # (Manual) Monocytes # (Manual) Eosinophils # (Manual) Basophils # (Manual) PT INR D-Dimer ABG pH POC ABG pCO2 POC ABG pO2 ABG pO2 ABG HCO3 ABG O2 Saturation ABG Base Excess ABG Hemoglobin ABG Oxyhemoglobin ABG Potassium ABG Glucose Oxyhemoglobin Carboxyhemoglobin Sodium Potassium Chloride Carbon Dioxide BUN Creatinine Glucose POC Glucose 124 H 138 H 119 H Calcium Ferritin Total Bilirubin Alkaline Phosphatase Lactate Dehydrogenase Total Creatine Kinase CK-MB (CK-2) Rel Index Troponin T C-Reactive Protein Total Protein Albumin Prealbumin LDL Cholesterol Direct HDL Cholesterol Arterial Blood Glucose Arterial Blood Ionized Calcium Urine WBC (Auto) 03/18/20 03/18/20 03/19/20 17:03 23:58 05:24 WBC RBC Hgb Hct MCV MCH RDW Plt Count Lymph % (Auto) [place] % (Auto) Lymph # (Auto) [place] # (Auto) Seg Neutrophils % Seg Neuts % (Manual) Lymphocytes % (Manual) Monocytes % (Manual) Basophils % (Manual) Seg Neutrophils # Seg Neutrophils # Man Lymphocytes # (Manual) Monocytes # (Manual) Eosinophils # (Manual) Basophils # (Manual) PT INR D-Dimer ABG pH POC ABG pCO2 POC ABG pO2 ABG pO2 ABG HCO3 ABG O2 Saturation ABG Base Excess ABG Hemoglobin ABG Oxyhemoglobin ABG Potassium ABG Glucose Oxyhemoglobin Carboxyhemoglobin Sodium Potassium Chloride Carbon Dioxide BUN Creatinine Glucose POC Glucose 128 H 128 H 115 H Calcium Ferritin Total Bilirubin Alkaline Phosphatase Lactate Dehydrogenase Total Creatine Kinase CK-MB (CK-2) Rel Index Troponin T C-Reactive Protein Total Protein Albumin Prealbumin LDL Cholesterol Direct HDL Cholesterol Arterial Blood Glucose Arterial Blood Ionized Calcium Urine WBC (Auto) 03/19/20 03/19/20 03/19/20 08:05 08:05 11:56 WBC 16.8 H RBC 3.36 L Hgb 9.4 L Hct 28.8 L MCV MCH RDW 17.4 H Plt Count 567 H Lymph % (Auto) 7.8 L [place] % (Auto) Lymph # (Auto) [place] # (Auto) 1.2 H Seg Neutrophils % 83.5 H Seg Neuts % (Manual) Lymphocytes % (Manual) Monocytes % (Manual) Basophils % (Manual) Seg Neutrophils # 14.1 H Seg Neutrophils # Man Lymphocytes # (Manual) Monocytes # (Manual) Eosinophils # (Manual) Basophils # (Manual) PT INR D-Dimer ABG pH POC ABG pCO2 POC ABG pO2 ABG pO2 ABG HCO3 ABG O2 Saturation ABG Base Excess ABG Hemoglobin ABG Oxyhemoglobin ABG Potassium ABG Glucose Oxyhemoglobin Carboxyhemoglobin Sodium Potassium Chloride Carbon Dioxide 36 H BUN Creatinine < 0.2 L Glucose 135 H POC Glucose 128 H Calcium Ferritin Total Bilirubin Alkaline Phosphatase Lactate Dehydrogenase Total Creatine Kinase CK-MB (CK-2) Rel Index Troponin T C-Reactive Protein Total Protein Albumin Prealbumin LDL Cholesterol Direct HDL Cholesterol Arterial Blood Glucose Arterial Blood Ionized Calcium Urine WBC (Auto) 03/19/20 03/20/20 03/20/20 23:59 05:12 16:52 WBC RBC Hgb Hct MCV MCH RDW Plt Count Lymph % (Auto) [place] % (Auto) Lymph # (Auto) [place] # (Auto) Seg Neutrophils % Seg Neuts % (Manual) Lymphocytes % (Manual) Monocytes % (Manual) Basophils % (Manual) Seg Neutrophils # Seg Neutrophils # Man Lymphocytes # (Manual) Monocytes # (Manual) Eosinophils # (Manual) Basophils # (Manual) PT INR D-Dimer ABG pH POC ABG pCO2 POC ABG pO2 ABG pO2 ABG HCO3 ABG O2 Saturation ABG Base Excess ABG Hemoglobin ABG Oxyhemoglobin ABG Potassium ABG Glucose Oxyhemoglobin Carboxyhemoglobin Sodium Potassium Chloride Carbon Dioxide BUN Creatinine Glucose POC Glucose 120 H 131 H 124 H Calcium Ferritin Total Bilirubin Alkaline Phosphatase Lactate Dehydrogenase Total Creatine Kinase CK-MB (CK-2) Rel Index Troponin T C-Reactive Protein Total Protein Albumin Prealbumin LDL Cholesterol Direct HDL Cholesterol Arterial Blood Glucose Arterial Blood Ionized Calcium Urine WBC (Auto) 03/20/20 03/21/20 03/21/20 23:35 04:50 07:35 WBC 15.2 H RBC 3.39 L Hgb 9.4 L Hct 29.4 L MCV MCH RDW 17.6 H Plt Count 518 H Lymph % (Auto) [place] % (Auto) Lymph # (Auto) [place] # (Auto) Seg Neutrophils % Seg Neuts % (Manual) 83.0 H Lymphocytes % (Manual) 10.0 L Monocytes % (Manual) Basophils % (Manual) 2.0 H Seg Neutrophils # Seg Neutrophils # Man 12.6 H Lymphocytes # (Manual) Monocytes # (Manual) Eosinophils # (Manual) Basophils # (Manual) 0.3 H PT INR D-Dimer ABG pH POC ABG pCO2 POC ABG pO2 ABG pO2 ABG HCO3 ABG O2 Saturation ABG Base Excess ABG Hemoglobin ABG Oxyhemoglobin ABG Potassium ABG Glucose Oxyhemoglobin Carboxyhemoglobin Sodium Potassium Chloride Carbon Dioxide BUN Creatinine Glucose POC Glucose 125 H 127 H Calcium Ferritin Total Bilirubin Alkaline Phosphatase Lactate Dehydrogenase Total Creatine Kinase CK-MB (CK-2) Rel Index Troponin T C-Reactive Protein Total Protein Albumin Prealbumin LDL Cholesterol Direct HDL Cholesterol Arterial Blood Glucose Arterial Blood Ionized Calcium Urine WBC (Auto) 03/21/20 03/21/20 03/21/20 07:35 11:45 17:22 WBC RBC Hgb Hct MCV MCH RDW Plt Count Lymph % (Auto) [place] % (Auto) Lymph # (Auto) [place] # (Auto) Seg Neutrophils % Seg Neuts % (Manual) Lymphocytes % (Manual) Monocytes % (Manual) Basophils % (Manual) Seg Neutrophils # Seg Neutrophils # Man Lymphocytes # (Manual) Monocytes # (Manual) Eosinophils # (Manual) Basophils # (Manual) PT INR D-Dimer ABG pH POC ABG pCO2 POC ABG pO2 ABG pO2 ABG HCO3 ABG O2 Saturation ABG Base Excess ABG Hemoglobin ABG Oxyhemoglobin ABG Potassium ABG Glucose Oxyhemoglobin Carboxyhemoglobin Sodium 136 L Potassium Chloride 97.7 L Carbon Dioxide 32 H BUN Creatinine < 0.2 L Glucose 103 H POC Glucose 126 H 120 H Calcium Ferritin Total Bilirubin Alkaline Phosphatase Lactate Dehydrogenase Total Creatine Kinase CK-MB (CK-2) Rel Index Troponin T C-Reactive Protein Total Protein Albumin Prealbumin LDL Cholesterol Direct HDL Cholesterol Arterial Blood Glucose Arterial Blood Ionized Calcium Urine WBC (Auto) 03/22/20 03/22/20 03/22/20 05:09 06:34 06:34 WBC 17.5 H RBC 3.52 L Hgb 10.0 L Hct 30.7 L MCV MCH RDW 17.5 H Plt Count 499 H Lymph % (Auto) [place] % (Auto) Lymph # (Auto) [place] # (Auto) Seg Neutrophils % Seg Neuts % (Manual) 80.0 H Lymphocytes % (Manual) 10.0 L Monocytes % (Manual) Basophils % (Manual) Seg Neutrophils # Seg Neutrophils # Man 14.0 H Lymphocytes # (Manual) Monocytes # (Manual) Eosinophils # (Manual) Basophils # (Manual) PT INR D-Dimer ABG pH POC ABG pCO2 POC ABG pO2 ABG pO2 ABG HCO3 ABG O2 Saturation ABG Base Excess ABG Hemoglobin ABG Oxyhemoglobin ABG Potassium ABG Glucose Oxyhemoglobin Carboxyhemoglobin Sodium Potassium Chloride 96.6 L Carbon Dioxide 38 H BUN Creatinine < 0.2 L Glucose 139 H POC Glucose 125 H Calcium Ferritin Total Bilirubin Alkaline Phosphatase Lactate Dehydrogenase Total Creatine Kinase CK-MB (CK-2) Rel Index Troponin T C-Reactive Protein Total Protein Albumin Prealbumin LDL Cholesterol Direct HDL Cholesterol Arterial Blood Glucose Arterial Blood Ionized Calcium Urine WBC (Auto) 03/22/20 03/22/20 03/22/20 11:45 18:00 23:32 WBC RBC Hgb Hct MCV MCH RDW Plt Count Lymph % (Auto) [place] % (Auto) Lymph # (Auto) [place] # (Auto) Seg Neutrophils % Seg Neuts % (Manual) Lymphocytes % (Manual) Monocytes % (Manual) Basophils % (Manual) Seg Neutrophils # Seg Neutrophils # Man Lymphocytes # (Manual) Monocytes # (Manual) Eosinophils # (Manual) Basophils # (Manual) PT INR D-Dimer ABG pH POC ABG pCO2 POC ABG pO2 ABG pO2 ABG HCO3 ABG O2 Saturation ABG Base Excess ABG Hemoglobin ABG Oxyhemoglobin ABG Potassium ABG Glucose Oxyhemoglobin Carboxyhemoglobin Sodium Potassium Chloride Carbon Dioxide BUN Creatinine Glucose POC Glucose 135 H 133 H Calcium Ferritin Total Bilirubin Alkaline Phosphatase Lactate Dehydrogenase Total Creatine Kinase CK-MB (CK-2) Rel Index Troponin T 0.113 H* C-Reactive Protein Total Protein Albumin Prealbumin LDL Cholesterol Direct HDL Cholesterol Arterial Blood Glucose Arterial Blood Ionized Calcium Urine WBC (Auto) 03/23/20 03/23/20 03/23/20 01:47 06:21 07:57 WBC RBC Hgb Hct MCV MCH RDW Plt Count Lymph % (Auto) [place] % (Auto) Lymph # (Auto) [place] # (Auto) Seg Neutrophils % Seg Neuts % (Manual) Lymphocytes % (Manual) Monocytes % (Manual) Basophils % (Manual) Seg Neutrophils # Seg Neutrophils # Man Lymphocytes # (Manual) Monocytes # (Manual) Eosinophils # (Manual) Basophils # (Manual) PT INR D-Dimer ABG pH POC ABG pCO2 POC ABG pO2 ABG pO2 ABG HCO3 ABG O2 Saturation ABG Base Excess ABG Hemoglobin ABG Oxyhemoglobin ABG Potassium ABG Glucose Oxyhemoglobin Carboxyhemoglobin Sodium Potassium Chloride Carbon Dioxide BUN Creatinine Glucose POC Glucose 130 H Calcium Ferritin Total Bilirubin Alkaline Phosphatase Lactate Dehydrogenase Total Creatine Kinase CK-MB (CK-2) Rel Index Troponin T 0.143 H* D 0.105 H* D C-Reactive Protein Total Protein Albumin Prealbumin LDL Cholesterol Direct HDL Cholesterol Arterial Blood Glucose Arterial Blood Ionized Calcium Urine WBC (Auto) 03/23/20 03/24/20 03/24/20 12:02 05:33 07:15 WBC 18.0 H RBC Hgb 11.0 L Hct 34.0 L MCV MCH RDW 17.4 H Plt Count 520 H Lymph % (Auto) [place] % (Auto) Lymph # (Auto) [place] # (Auto) Seg Neutrophils % Seg Neuts % (Manual) 88.0 H Lymphocytes % (Manual) 7.0 L Monocytes % (Manual) Basophils % (Manual) Seg Neutrophils # Seg Neutrophils # Man 15.8 H Lymphocytes # (Manual) Monocytes # (Manual) Eosinophils # (Manual) Basophils # (Manual) PT INR D-Dimer ABG pH POC ABG pCO2 POC ABG pO2 ABG pO2 ABG HCO3 ABG O2 Saturation ABG Base Excess ABG Hemoglobin ABG Oxyhemoglobin ABG Potassium ABG Glucose Oxyhemoglobin Carboxyhemoglobin Sodium Potassium Chloride Carbon Dioxide BUN Creatinine Glucose POC Glucose 137 H 112 H Calcium Ferritin Total Bilirubin Alkaline Phosphatase Lactate Dehydrogenase Total Creatine Kinase CK-MB (CK-2) Rel Index Troponin T C-Reactive Protein Total Protein Albumin Prealbumin LDL Cholesterol Direct HDL Cholesterol Arterial Blood Glucose Arterial Blood Ionized Calcium Urine WBC (Auto) 03/24/20 03/24/20 03/24/20 07:15 11:22 23:30 WBC RBC Hgb Hct MCV MCH RDW Plt Count Lymph % (Auto) [place] % (Auto) Lymph # (Auto) [place] # (Auto) Seg Neutrophils % Seg Neuts % (Manual) Lymphocytes % (Manual) Monocytes % (Manual) Basophils % (Manual) Seg Neutrophils # Seg Neutrophils # Man Lymphocytes # (Manual) Monocytes # (Manual) Eosinophils # (Manual) Basophils # (Manual) PT INR D-Dimer ABG pH POC ABG pCO2 POC ABG pO2 ABG pO2 ABG HCO3 ABG O2 Saturation ABG Base Excess ABG Hemoglobin ABG Oxyhemoglobin ABG Potassium ABG Glucose Oxyhemoglobin Carboxyhemoglobin Sodium Potassium Chloride 96.6 L Carbon Dioxide 38 H BUN Creatinine < 0.2 L Glucose 141 H POC Glucose 130 H 120 H Calcium Ferritin Total Bilirubin Alkaline Phosphatase Lactate Dehydrogenase Total Creatine Kinase CK-MB (CK-2) Rel Index Troponin T C-Reactive Protein Total Protein Albumin Prealbumin LDL Cholesterol Direct HDL Cholesterol Arterial Blood Glucose Arterial Blood Ionized Calcium Urine WBC (Auto) 03/25/20 03/25/20 03/25/20 05:48 17:53 23:18 WBC RBC Hgb Hct MCV MCH RDW Plt Count Lymph % (Auto) [place] % (Auto) Lymph # (Auto) [place] # (Auto) Seg Neutrophils % Seg Neuts % (Manual) Lymphocytes % (Manual) Monocytes % (Manual) Basophils % (Manual) Seg Neutrophils # Seg Neutrophils # Man Lymphocytes # (Manual) Monocytes # (Manual) Eosinophils # (Manual) Basophils # (Manual) PT INR D-Dimer ABG pH POC ABG pCO2 POC ABG pO2 ABG pO2 ABG HCO3 ABG O2 Saturation ABG Base Excess ABG Hemoglobin ABG Oxyhemoglobin ABG Potassium ABG Glucose Oxyhemoglobin Carboxyhemoglobin Sodium Potassium Chloride Carbon Dioxide BUN Creatinine Glucose POC Glucose 124 H 109 H 131 H Calcium Ferritin Total Bilirubin Alkaline Phosphatase Lactate Dehydrogenase Total Creatine Kinase CK-MB (CK-2) Rel Index Troponin T C-Reactive Protein Total Protein Albumin Prealbumin LDL Cholesterol Direct HDL Cholesterol Arterial Blood Glucose Arterial Blood Ionized Calcium Urine WBC (Auto) 03/26/20 03/26/20 03/26/20 05:21 08:49 08:49 WBC 19.7 H RBC Hgb 10.7 L Hct 33.5 L MCV MCH 27 L RDW 17.1 H Plt Count 480 H Lymph % (Auto) 5.7 L [place] % (Auto) Lymph # (Auto) 1.1 L [place] # (Auto) 1.2 H Seg Neutrophils % 87.7 H Seg Neuts % (Manual) Lymphocytes % (Manual) Monocytes % (Manual) Basophils % (Manual) Seg Neutrophils # 17.2 H Seg Neutrophils # Man Lymphocytes # (Manual) Monocytes # (Manual) Eosinophils # (Manual) Basophils # (Manual) PT INR D-Dimer ABG pH POC ABG pCO2 POC ABG pO2 ABG pO2 ABG HCO3 ABG O2 Saturation ABG Base Excess ABG Hemoglobin ABG Oxyhemoglobin ABG Potassium ABG Glucose Oxyhemoglobin Carboxyhemoglobin Sodium Potassium Chloride 97.2 L Carbon Dioxide 36 H BUN Creatinine < 0.2 L Glucose 127 H POC Glucose 116 H Calcium Ferritin Total Bilirubin Alkaline Phosphatase Lactate Dehydrogenase Total Creatine Kinase CK-MB (CK-2) Rel Index Troponin T C-Reactive Protein Total Protein Albumin Prealbumin LDL Cholesterol Direct HDL Cholesterol Arterial Blood Glucose Arterial Blood Ionized Calcium Urine WBC (Auto) 03/26/20 03/26/20 03/26/20 11:38 18:44 23:06 WBC RBC Hgb Hct MCV MCH RDW Plt Count Lymph % (Auto) [place] % (Auto) Lymph # (Auto) [place] # (Auto) Seg Neutrophils % Seg Neuts % (Manual) Lymphocytes % (Manual) Monocytes % (Manual) Basophils % (Manual) Seg Neutrophils # Seg Neutrophils # Man Lymphocytes # (Manual) Monocytes # (Manual) Eosinophils # (Manual) Basophils # (Manual) PT INR D-Dimer ABG pH POC ABG pCO2 POC ABG pO2 ABG pO2 ABG HCO3 ABG O2 Saturation ABG Base Excess ABG Hemoglobin ABG Oxyhemoglobin ABG Potassium ABG Glucose Oxyhemoglobin Carboxyhemoglobin Sodium Potassium Chloride Carbon Dioxide BUN Creatinine Glucose POC Glucose 120 H 111 H 134 H Calcium Ferritin Total Bilirubin Alkaline Phosphatase Lactate Dehydrogenase Total Creatine Kinase CK-MB (CK-2) Rel Index Troponin T C-Reactive Protein Total Protein Albumin Prealbumin LDL Cholesterol Direct HDL Cholesterol Arterial Blood Glucose Arterial Blood Ionized Calcium Urine WBC (Auto) 03/27/20 03/27/20 03/27/20 05:41 05:59 05:59 WBC 18.6 H RBC Hgb 10.1 L Hct 31.4 L MCV MCH RDW 17.2 H Plt Count Lymph % (Auto) 8.0 L [place] % (Auto) Lymph # (Auto) [place] # (Auto) 1.2 H Seg Neutrophils % 84.7 H Seg Neuts % (Manual) Lymphocytes % (Manual) Monocytes % (Manual) Basophils % (Manual) Seg Neutrophils # 15.8 H Seg Neutrophils # Man Lymphocytes # (Manual) Monocytes # (Manual) Eosinophils # (Manual) Basophils # (Manual) PT INR D-Dimer ABG pH POC ABG pCO2 POC ABG pO2 ABG pO2 ABG HCO3 ABG O2 Saturation ABG Base Excess ABG Hemoglobin ABG Oxyhemoglobin ABG Potassium ABG Glucose Oxyhemoglobin Carboxyhemoglobin Sodium Potassium Chloride Carbon Dioxide 34 H BUN Creatinine < 0.2 L Glucose 127 H POC Glucose 129 H Calcium Ferritin Total Bilirubin Alkaline Phosphatase Lactate Dehydrogenase Total Creatine Kinase CK-MB (CK-2) Rel Index Troponin T C-Reactive Protein Total Protein Albumin Prealbumin LDL Cholesterol Direct HDL Cholesterol Arterial Blood Glucose Arterial Blood Ionized Calcium Urine WBC (Auto) 03/27/20 03/27/20 03/28/20 17:28 23:22 05:23 WBC RBC Hgb Hct MCV MCH RDW Plt Count Lymph % (Auto) [place] % (Auto) Lymph # (Auto) [place] # (Auto) Seg Neutrophils % Seg Neuts % (Manual) Lymphocytes % (Manual) Monocytes % (Manual) Basophils % (Manual) Seg Neutrophils # Seg Neutrophils # Man Lymphocytes # (Manual) Monocytes # (Manual) Eosinophils # (Manual) Basophils # (Manual) PT INR D-Dimer ABG pH POC ABG pCO2 POC ABG pO2 ABG pO2 ABG HCO3 ABG O2 Saturation ABG Base Excess ABG Hemoglobin ABG Oxyhemoglobin ABG Potassium ABG Glucose Oxyhemoglobin Carboxyhemoglobin Sodium Potassium Chloride Carbon Dioxide BUN Creatinine Glucose POC Glucose 108 H 119 H 129 H Calcium Ferritin Total Bilirubin Alkaline Phosphatase Lactate Dehydrogenase Total Creatine Kinase CK-MB (CK-2) Rel Index Troponin T C-Reactive Protein Total Protein Albumin Prealbumin LDL Cholesterol Direct HDL Cholesterol Arterial Blood Glucose Arterial Blood Ionized Calcium Urine WBC (Auto) 03/28/20 03/28/20 03/28/20 10:28 10:28 11:36 WBC 23.6 H RBC 3.62 L Hgb 10.0 L Hct 30.8 L MCV MCH RDW 16.4 H Plt Count Lymph % (Auto) [place] % (Auto) Lymph # (Auto) [place] # (Auto) Seg Neutrophils % Seg Neuts % (Manual) 89.0 H Lymphocytes % (Manual) 5.0 L Monocytes % (Manual) Basophils % (Manual) Seg Neutrophils # Seg Neutrophils # Man 21.0 H Lymphocytes # (Manual) Monocytes # (Manual) 1.2 H Eosinophils # (Manual) Basophils # (Manual) 0.2 H PT INR D-Dimer ABG pH POC ABG pCO2 POC ABG pO2 ABG pO2 ABG HCO3 ABG O2 Saturation ABG Base Excess ABG Hemoglobin ABG Oxyhemoglobin ABG Potassium ABG Glucose Oxyhemoglobin Carboxyhemoglobin Sodium 134 L Potassium Chloride 94.2 L Carbon Dioxide 35 H BUN Creatinine < 0.2 L Glucose 134 H POC Glucose Calcium Ferritin Total Bilirubin Alkaline Phosphatase Lactate Dehydrogenase Total Creatine Kinase CK-MB (CK-2) Rel Index Troponin T C-Reactive Protein Total Protein Albumin Prealbumin LDL Cholesterol Direct HDL Cholesterol Arterial Blood Glucose Arterial Blood Ionized Calcium Urine WBC (Auto) 39.0 H 03/28/20 03/28/20 03/28/20 11:51 17:08 17:17 WBC RBC Hgb Hct MCV MCH RDW Plt Count Lymph % (Auto) [place] % (Auto) Lymph # (Auto) [place] # (Auto) Seg Neutrophils % Seg Neuts % (Manual) Lymphocytes % (Manual) Monocytes % (Manual) Basophils % (Manual) Seg Neutrophils # Seg Neutrophils # Man Lymphocytes # (Manual) Monocytes # (Manual) Eosinophils # (Manual) Basophils # (Manual) PT INR D-Dimer ABG pH POC ABG pCO2 POC ABG pO2 ABG pO2 ABG HCO3 ABG O2 Saturation ABG Base Excess ABG Hemoglobin ABG Oxyhemoglobin ABG Potassium ABG Glucose Oxyhemoglobin Carboxyhemoglobin Sodium Potassium Chloride Carbon Dioxide BUN Creatinine Glucose POC Glucose 123 H 112 H Calcium Ferritin Total Bilirubin Alkaline Phosphatase Lactate Dehydrogenase Total Creatine Kinase 47 L CK-MB (CK-2) Rel Index 4.6 H Troponin T 0.090 H C-Reactive Protein Total Protein Albumin Prealbumin LDL Cholesterol Direct HDL Cholesterol Arterial Blood Glucose Arterial Blood Ionized Calcium Urine WBC (Auto) 03/28/20 03/29/20 03/29/20 23:22 05:22 10:58 WBC RBC Hgb Hct MCV MCH RDW Plt Count Lymph % (Auto) [place] % (Auto) Lymph # (Auto) [place] # (Auto) Seg Neutrophils % Seg Neuts % (Manual) Lymphocytes % (Manual) Monocytes % (Manual) Basophils % (Manual) Seg Neutrophils # Seg Neutrophils # Man Lymphocytes # (Manual) Monocytes # (Manual) Eosinophils # (Manual) Basophils # (Manual) PT INR D-Dimer ABG pH POC ABG pCO2 POC ABG pO2 ABG pO2 ABG HCO3 ABG O2 Saturation ABG Base Excess ABG Hemoglobin ABG Oxyhemoglobin ABG Potassium ABG Glucose Oxyhemoglobin Carboxyhemoglobin Sodium Potassium Chloride Carbon Dioxide BUN Creatinine Glucose POC Glucose 122 H 116 H 133 H Calcium Ferritin Total Bilirubin Alkaline Phosphatase Lactate Dehydrogenase Total Creatine Kinase CK-MB (CK-2) Rel Index Troponin T C-Reactive Protein Total Protein Albumin Prealbumin LDL Cholesterol Direct HDL Cholesterol Arterial Blood Glucose Arterial Blood Ionized Calcium Urine WBC (Auto) 03/29/20 03/29/20 03/30/20 17:18 23:14 04:57 WBC RBC Hgb Hct MCV MCH RDW Plt Count Lymph % (Auto) [place] % (Auto) Lymph # (Auto) [place] # (Auto) Seg Neutrophils % Seg Neuts % (Manual) Lymphocytes % (Manual) Monocytes % (Manual) Basophils % (Manual) Seg Neutrophils # Seg Neutrophils # Man Lymphocytes # (Manual) Monocytes # (Manual) Eosinophils # (Manual) Basophils # (Manual) PT INR D-Dimer ABG pH POC ABG pCO2 POC ABG pO2 ABG pO2 ABG HCO3 ABG O2 Saturation ABG Base Excess ABG Hemoglobin ABG Oxyhemoglobin ABG Potassium ABG Glucose Oxyhemoglobin Carboxyhemoglobin Sodium Potassium Chloride Carbon Dioxide BUN Creatinine Glucose POC Glucose 111 H 114 H 130 H Calcium Ferritin Total Bilirubin Alkaline Phosphatase Lactate Dehydrogenase Total Creatine Kinase CK-MB (CK-2) Rel Index Troponin T C-Reactive Protein Total Protein Albumin Prealbumin LDL Cholesterol Direct HDL Cholesterol Arterial Blood Glucose Arterial Blood Ionized Calcium Urine WBC (Auto) 03/30/20 03/30/20 03/30/20 11:38 14:47 14:47 WBC 19.9 H RBC Hgb 10.9 L Hct 34.4 L MCV MCH 27 L RDW 16.5 H Plt Count 441 H Lymph % (Auto) 6.4 L [place] % (Auto) Lymph # (Auto) [place] # (Auto) 1.4 H Seg Neutrophils % 86.1 H Seg Neuts % (Manual) Lymphocytes % (Manual) Monocytes % (Manual) Basophils % (Manual) Seg Neutrophils # 17.1 H Seg Neutrophils # Man Lymphocytes # (Manual) Monocytes # (Manual) Eosinophils # (Manual) Basophils # (Manual) PT INR D-Dimer ABG pH POC ABG pCO2 POC ABG pO2 ABG pO2 ABG HCO3 ABG O2 Saturation ABG Base Excess ABG Hemoglobin ABG Oxyhemoglobin ABG Potassium ABG Glucose Oxyhemoglobin Carboxyhemoglobin Sodium 133 L Potassium Chloride 94.6 L Carbon Dioxide 33 H BUN Creatinine < 0.2 L Glucose 194 H POC Glucose 139 H Calcium Ferritin Total Bilirubin Alkaline Phosphatase Lactate Dehydrogenase Total Creatine Kinase CK-MB (CK-2) Rel Index Troponin T C-Reactive Protein Total Protein Albumin 2.8 L Prealbumin LDL Cholesterol Direct HDL Cholesterol Arterial Blood Glucose Arterial Blood Ionized Calcium Urine WBC (Auto) 03/30/20 03/31/20 03/31/20 17:07 05:02 15:21 WBC RBC Hgb Hct MCV MCH RDW Plt Count Lymph % (Auto) [place] % (Auto) Lymph # (Auto) [place] # (Auto) Seg Neutrophils % Seg Neuts % (Manual) Lymphocytes % (Manual) Monocytes % (Manual) Basophils % (Manual) Seg Neutrophils # Seg Neutrophils # Man Lymphocytes # (Manual) Monocytes # (Manual) Eosinophils # (Manual) Basophils # (Manual) PT INR D-Dimer ABG pH POC ABG pCO2 POC ABG pO2 ABG pO2 ABG HCO3 ABG O2 Saturation ABG Base Excess ABG Hemoglobin ABG Oxyhemoglobin ABG Potassium ABG Glucose Oxyhemoglobin Carboxyhemoglobin Sodium Potassium Chloride Carbon Dioxide BUN Creatinine Glucose POC Glucose 163 H 108 H 110 H Calcium Ferritin Total Bilirubin Alkaline Phosphatase Lactate Dehydrogenase Total Creatine Kinase CK-MB (CK-2) Rel Index Troponin T C-Reactive Protein Total Protein Albumin Prealbumin LDL Cholesterol Direct HDL Cholesterol Arterial Blood Glucose Arterial Blood Ionized Calcium Urine WBC (Auto) 03/31/20 03/31/20 04/01/20 17:58 23:19 05:09 WBC RBC Hgb Hct MCV MCH RDW Plt Count Lymph % (Auto) [place] % (Auto) Lymph # (Auto) [place] # (Auto) Seg Neutrophils % Seg Neuts % (Manual) Lymphocytes % (Manual) Monocytes % (Manual) Basophils % (Manual) Seg Neutrophils # Seg Neutrophils # Man Lymphocytes # (Manual) Monocytes # (Manual) Eosinophils # (Manual) Basophils # (Manual) PT INR D-Dimer ABG pH POC ABG pCO2 POC ABG pO2 ABG pO2 ABG HCO3 ABG O2 Saturation ABG Base Excess ABG Hemoglobin ABG Oxyhemoglobin ABG Potassium ABG Glucose Oxyhemoglobin Carboxyhemoglobin Sodium Potassium Chloride Carbon Dioxide BUN Creatinine Glucose POC Glucose 110 H 131 H 124 H Calcium Ferritin Total Bilirubin Alkaline Phosphatase Lactate Dehydrogenase Total Creatine Kinase CK-MB (CK-2) Rel Index Troponin T C-Reactive Protein Total Protein Albumin Prealbumin LDL Cholesterol Direct HDL Cholesterol Arterial Blood Glucose Arterial Blood Ionized Calcium Urine WBC (Auto) 04/01/20 04/01/20 04/01/20 11:50 17:01 23:21 WBC RBC Hgb Hct MCV MCH RDW Plt Count Lymph % (Auto) [place] % (Auto) Lymph # (Auto) [place] # (Auto) Seg Neutrophils % Seg Neuts % (Manual) Lymphocytes % (Manual) Monocytes % (Manual) Basophils % (Manual) Seg Neutrophils # Seg Neutrophils # Man Lymphocytes # (Manual) Monocytes # (Manual) Eosinophils # (Manual) Basophils # (Manual) PT INR D-Dimer ABG pH POC ABG pCO2 POC ABG pO2 ABG pO2 ABG HCO3 ABG O2 Saturation ABG Base Excess ABG Hemoglobin ABG Oxyhemoglobin ABG Potassium ABG Glucose Oxyhemoglobin Carboxyhemoglobin Sodium Potassium Chloride Carbon Dioxide BUN Creatinine Glucose POC Glucose 136 H 115 H 124 H Calcium Ferritin Total Bilirubin Alkaline Phosphatase Lactate Dehydrogenase Total Creatine Kinase CK-MB (CK-2) Rel Index Troponin T C-Reactive Protein Total Protein Albumin Prealbumin LDL Cholesterol Direct HDL Cholesterol Arterial Blood Glucose Arterial Blood Ionized Calcium Urine WBC (Auto) 04/02/20 04/02/20 04/02/20 05:27 11:58 17:58 WBC RBC Hgb Hct MCV MCH RDW Plt Count Lymph % (Auto) [place] % (Auto) Lymph # (Auto) [place] # (Auto) Seg Neutrophils % Seg Neuts % (Manual) Lymphocytes % (Manual) Monocytes % (Manual) Basophils % (Manual) Seg Neutrophils # Seg Neutrophils # Man Lymphocytes # (Manual) Monocytes # (Manual) Eosinophils # (Manual) Basophils # (Manual) PT INR D-Dimer ABG pH POC ABG pCO2 POC ABG pO2 ABG pO2 ABG HCO3 ABG O2 Saturation ABG Base Excess ABG Hemoglobin ABG Oxyhemoglobin ABG Potassium ABG Glucose Oxyhemoglobin Carboxyhemoglobin Sodium Potassium Chloride Carbon Dioxide BUN Creatinine Glucose POC Glucose 117 H 133 H 122 H Calcium Ferritin Total Bilirubin Alkaline Phosphatase Lactate Dehydrogenase Total Creatine Kinase CK-MB (CK-2) Rel Index Troponin T C-Reactive Protein Total Protein Albumin Prealbumin LDL Cholesterol Direct HDL Cholesterol Arterial Blood Glucose Arterial Blood Ionized Calcium Urine WBC (Auto) 04/02/20 04/03/20 04/03/20 23:12 05:11 11:11 WBC RBC Hgb Hct MCV MCH RDW Plt Count Lymph % (Auto) [place] % (Auto) Lymph # (Auto) [place] # (Auto) Seg Neutrophils % Seg Neuts % (Manual) Lymphocytes % (Manual) Monocytes % (Manual) Basophils % (Manual) Seg Neutrophils # Seg Neutrophils # Man Lymphocytes # (Manual) Monocytes # (Manual) Eosinophils # (Manual) Basophils # (Manual) PT INR D-Dimer ABG pH POC ABG pCO2 POC ABG pO2 ABG pO2 ABG HCO3 ABG O2 Saturation ABG Base Excess ABG Hemoglobin ABG Oxyhemoglobin ABG Potassium ABG Glucose Oxyhemoglobin Carboxyhemoglobin Sodium Potassium Chloride Carbon Dioxide BUN Creatinine Glucose POC Glucose 130 H 139 H 136 H Calcium Ferritin Total Bilirubin Alkaline Phosphatase Lactate Dehydrogenase Total Creatine Kinase CK-MB (CK-2) Rel Index Troponin T C-Reactive Protein Total Protein Albumin Prealbumin LDL Cholesterol Direct HDL Cholesterol Arterial Blood Glucose Arterial Blood Ionized Calcium Urine WBC (Auto) 04/03/20 04/03/20 04/04/20 16:51 23:25 05:29 WBC RBC Hgb Hct MCV MCH RDW Plt Count Lymph % (Auto) [place] % (Auto) Lymph # (Auto) [place] # (Auto) Seg Neutrophils % Seg Neuts % (Manual) Lymphocytes % (Manual) Monocytes % (Manual) Basophils % (Manual) Seg Neutrophils # Seg Neutrophils # Man Lymphocytes # (Manual) Monocytes # (Manual) Eosinophils # (Manual) Basophils # (Manual) PT INR D-Dimer ABG pH POC ABG pCO2 POC ABG pO2 ABG pO2 ABG HCO3 ABG O2 Saturation ABG Base Excess ABG Hemoglobin ABG Oxyhemoglobin ABG Potassium ABG Glucose Oxyhemoglobin Carboxyhemoglobin Sodium Potassium Chloride Carbon Dioxide BUN Creatinine Glucose POC Glucose 118 H 111 H 126 H Calcium Ferritin Total Bilirubin Alkaline Phosphatase Lactate Dehydrogenase Total Creatine Kinase CK-MB (CK-2) Rel Index Troponin T C-Reactive Protein Total Protein Albumin Prealbumin LDL Cholesterol Direct HDL Cholesterol Arterial Blood Glucose Arterial Blood Ionized Calcium Urine WBC (Auto) 04/04/20 04/04/20 04/04/20 11:47 17:41 23:05 WBC RBC Hgb Hct MCV MCH RDW Plt Count Lymph % (Auto) [place] % (Auto) Lymph # (Auto) [place] # (Auto) Seg Neutrophils % Seg Neuts % (Manual) Lymphocytes % (Manual) Monocytes % (Manual) Basophils % (Manual) Seg Neutrophils # Seg Neutrophils # Man Lymphocytes # (Manual) Monocytes # (Manual) Eosinophils # (Manual) Basophils # (Manual) PT INR D-Dimer ABG pH POC ABG pCO2 POC ABG pO2 ABG pO2 ABG HCO3 ABG O2 Saturation ABG Base Excess ABG Hemoglobin ABG Oxyhemoglobin ABG Potassium ABG Glucose Oxyhemoglobin Carboxyhemoglobin Sodium Potassium Chloride Carbon Dioxide BUN Creatinine Glucose POC Glucose 123 H 120 H 119 H Calcium Ferritin Total Bilirubin Alkaline Phosphatase Lactate Dehydrogenase Total Creatine Kinase CK-MB (CK-2) Rel Index Troponin T C-Reactive Protein Total Protein Albumin Prealbumin LDL Cholesterol Direct HDL Cholesterol Arterial Blood Glucose Arterial Blood Ionized Calcium Urine WBC (Auto) 04/05/20 04/05/20 04/05/20 05:14 12:16 18:48 WBC RBC Hgb Hct MCV MCH RDW Plt Count Lymph % (Auto) [place] % (Auto) Lymph # (Auto) [place] # (Auto) Seg Neutrophils % Seg Neuts % (Manual) Lymphocytes % (Manual) Monocytes % (Manual) Basophils % (Manual) Seg Neutrophils # Seg Neutrophils # Man Lymphocytes # (Manual) Monocytes # (Manual) Eosinophils # (Manual) Basophils # (Manual) PT INR D-Dimer ABG pH POC ABG pCO2 POC ABG pO2 ABG pO2 ABG HCO3 ABG O2 Saturation ABG Base Excess ABG Hemoglobin ABG Oxyhemoglobin ABG Potassium ABG Glucose Oxyhemoglobin Carboxyhemoglobin Sodium Potassium Chloride Carbon Dioxide BUN Creatinine Glucose POC Glucose 123 H 148 H 106 H Calcium Ferritin Total Bilirubin Alkaline Phosphatase Lactate Dehydrogenase Total Creatine Kinase CK-MB (CK-2) Rel Index Troponin T C-Reactive Protein Total Protein Albumin Prealbumin LDL Cholesterol Direct HDL Cholesterol Arterial Blood Glucose Arterial Blood Ionized Calcium Urine WBC (Auto) 04/06/20 04/06/20 04/06/20 00:47 03:26 08:24 WBC RBC Hgb Hct MCV MCH RDW Plt Count Lymph % (Auto) [place] % (Auto) Lymph # (Auto) [place] # (Auto) Seg Neutrophils % Seg Neuts % (Manual) Lymphocytes % (Manual) Monocytes % (Manual) Basophils % (Manual) Seg Neutrophils # Seg Neutrophils # Man Lymphocytes # (Manual) Monocytes # (Manual) Eosinophils # (Manual) Basophils # (Manual) PT INR D-Dimer ABG pH POC ABG pCO2 POC ABG pO2 ABG pO2 ABG HCO3 ABG O2 Saturation ABG Base Excess ABG Hemoglobin ABG Oxyhemoglobin ABG Potassium ABG Glucose Oxyhemoglobin Carboxyhemoglobin Sodium Potassium Chloride Carbon Dioxide BUN Creatinine Glucose POC Glucose 129 H 134 H 131 H Calcium Ferritin Total Bilirubin Alkaline Phosphatase Lactate Dehydrogenase Total Creatine Kinase CK-MB (CK-2) Rel Index Troponin T C-Reactive Protein Total Protein Albumin Prealbumin LDL Cholesterol Direct HDL Cholesterol Arterial Blood Glucose Arterial Blood Ionized Calcium Urine WBC (Auto) 04/06/20 04/06/20 04/06/20 11:16 16:27 23:01 WBC RBC Hgb Hct MCV MCH RDW Plt Count Lymph % (Auto) [place] % (Auto) Lymph # (Auto) [place] # (Auto) Seg Neutrophils % Seg Neuts % (Manual) Lymphocytes % (Manual) Monocytes % (Manual) Basophils % (Manual) Seg Neutrophils # Seg Neutrophils # Man Lymphocytes # (Manual) Monocytes # (Manual) Eosinophils # (Manual) Basophils # (Manual) PT INR D-Dimer ABG pH POC ABG pCO2 POC ABG pO2 ABG pO2 ABG HCO3 ABG O2 Saturation ABG Base Excess ABG Hemoglobin ABG Oxyhemoglobin ABG Potassium ABG Glucose Oxyhemoglobin Carboxyhemoglobin Sodium Potassium Chloride Carbon Dioxide BUN Creatinine Glucose POC Glucose 131 H 107 H 125 H Calcium Ferritin Total Bilirubin Alkaline Phosphatase Lactate Dehydrogenase Total Creatine Kinase CK-MB (CK-2) Rel Index Troponin T C-Reactive Protein Total Protein Albumin Prealbumin LDL Cholesterol Direct HDL Cholesterol Arterial Blood Glucose Arterial Blood Ionized Calcium Urine WBC (Auto) 04/07/20 04/07/20 04/07/20 05:24 12:41 17:40 WBC RBC Hgb Hct MCV MCH RDW Plt Count Lymph % (Auto) [place] % (Auto) Lymph # (Auto) [place] # (Auto) Seg Neutrophils % Seg Neuts % (Manual) Lymphocytes % (Manual) Monocytes % (Manual) Basophils % (Manual) Seg Neutrophils # Seg Neutrophils # Man Lymphocytes # (Manual) Monocytes # (Manual) Eosinophils # (Manual) Basophils # (Manual) PT INR D-Dimer ABG pH POC ABG pCO2 POC ABG pO2 ABG pO2 ABG HCO3 ABG O2 Saturation ABG Base Excess ABG Hemoglobin ABG Oxyhemoglobin ABG Potassium ABG Glucose Oxyhemoglobin Carboxyhemoglobin Sodium Potassium Chloride Carbon Dioxide BUN Creatinine Glucose POC Glucose 125 H 145 H 123 H Calcium Ferritin Total Bilirubin Alkaline Phosphatase Lactate Dehydrogenase Total Creatine Kinase CK-MB (CK-2) Rel Index Troponin T C-Reactive Protein Total Protein Albumin Prealbumin LDL Cholesterol Direct HDL Cholesterol Arterial Blood Glucose Arterial Blood Ionized Calcium Urine WBC (Auto) 04/07/20 04/08/20 04/08/20 23:22 05:40 11:29 WBC RBC Hgb Hct MCV MCH RDW Plt Count Lymph % (Auto) [place] % (Auto) Lymph # (Auto) [place] # (Auto) Seg Neutrophils % Seg Neuts % (Manual) Lymphocytes % (Manual) Monocytes % (Manual) Basophils % (Manual) Seg Neutrophils # Seg Neutrophils # Man Lymphocytes # (Manual) Monocytes # (Manual) Eosinophils # (Manual) Basophils # (Manual) PT INR D-Dimer ABG pH POC ABG pCO2 POC ABG pO2 ABG pO2 ABG HCO3 ABG O2 Saturation ABG Base Excess ABG Hemoglobin ABG Oxyhemoglobin ABG Potassium ABG Glucose Oxyhemoglobin Carboxyhemoglobin Sodium Potassium Chloride Carbon Dioxide BUN Creatinine Glucose POC Glucose 133 H 125 H 116 H Calcium Ferritin Total Bilirubin Alkaline Phosphatase Lactate Dehydrogenase Total Creatine Kinase CK-MB (CK-2) Rel Index Troponin T C-Reactive Protein Total Protein Albumin Prealbumin LDL Cholesterol Direct HDL Cholesterol Arterial Blood Glucose Arterial Blood Ionized Calcium Urine WBC (Auto) 04/08/20 04/09/20 04/09/20 17:43 05:47 12:22 WBC RBC Hgb Hct MCV MCH RDW Plt Count Lymph % (Auto) [place] % (Auto) Lymph # (Auto) [place] # (Auto) Seg Neutrophils % Seg Neuts % (Manual) Lymphocytes % (Manual) Monocytes % (Manual) Basophils % (Manual) Seg Neutrophils # Seg Neutrophils # Man Lymphocytes # (Manual) Monocytes # (Manual) Eosinophils # (Manual) Basophils # (Manual) PT INR D-Dimer ABG pH POC ABG pCO2 POC ABG pO2 ABG pO2 ABG HCO3 ABG O2 Saturation ABG Base Excess ABG Hemoglobin ABG Oxyhemoglobin ABG Potassium ABG Glucose Oxyhemoglobin Carboxyhemoglobin Sodium Potassium Chloride Carbon Dioxide BUN Creatinine Glucose POC Glucose 123 H 108 H 116 H Calcium Ferritin Total Bilirubin Alkaline Phosphatase Lactate Dehydrogenase Total Creatine Kinase CK-MB (CK-2) Rel Index Troponin T C-Reactive Protein Total Protein Albumin Prealbumin LDL Cholesterol Direct HDL Cholesterol Arterial Blood Glucose Arterial Blood Ionized Calcium Urine WBC (Auto) 04/09/20 04/09/20 04/10/20 17:24 23:52 06:10 WBC RBC Hgb Hct MCV MCH RDW Plt Count Lymph % (Auto) [place] % (Auto) Lymph # (Auto) [place] # (Auto) Seg Neutrophils % Seg Neuts % (Manual) Lymphocytes % (Manual) Monocytes % (Manual) Basophils % (Manual) Seg Neutrophils # Seg Neutrophils # Man Lymphocytes # (Manual) Monocytes # (Manual) Eosinophils # (Manual) Basophils # (Manual) PT INR D-Dimer ABG pH POC ABG pCO2 POC ABG pO2 ABG pO2 ABG HCO3 ABG O2 Saturation ABG Base Excess ABG Hemoglobin ABG Oxyhemoglobin ABG Potassium ABG Glucose Oxyhemoglobin Carboxyhemoglobin Sodium Potassium Chloride Carbon Dioxide BUN Creatinine Glucose POC Glucose 108 H 126 H 122 H Calcium Ferritin Total Bilirubin Alkaline Phosphatase Lactate Dehydrogenase Total Creatine Kinase CK-MB (CK-2) Rel Index Troponin T C-Reactive Protein Total Protein Albumin Prealbumin LDL Cholesterol Direct HDL Cholesterol Arterial Blood Glucose Arterial Blood Ionized Calcium Urine WBC (Auto) 04/10/20 04/10/20 04/10/20 11:27 18:11 23:24 WBC RBC Hgb Hct MCV MCH RDW Plt Count Lymph % (Auto) [place] % (Auto) Lymph # (Auto) [place] # (Auto) Seg Neutrophils % Seg Neuts % (Manual) Lymphocytes % (Manual) Monocytes % (Manual) Basophils % (Manual) Seg Neutrophils # Seg Neutrophils # Man Lymphocytes # (Manual) Monocytes # (Manual) Eosinophils # (Manual) Basophils # (Manual) PT INR D-Dimer ABG pH POC ABG pCO2 POC ABG pO2 ABG pO2 ABG HCO3 ABG O2 Saturation ABG Base Excess ABG Hemoglobin ABG Oxyhemoglobin ABG Potassium ABG Glucose Oxyhemoglobin Carboxyhemoglobin Sodium Potassium Chloride Carbon Dioxide BUN Creatinine Glucose POC Glucose 129 H 125 H 107 H Calcium Ferritin Total Bilirubin Alkaline Phosphatase Lactate Dehydrogenase Total Creatine Kinase CK-MB (CK-2) Rel Index Troponin T C-Reactive Protein Total Protein Albumin Prealbumin LDL Cholesterol Direct HDL Cholesterol Arterial Blood Glucose Arterial Blood Ionized Calcium Urine WBC (Auto) 04/11/20 04/11/20 04/11/20 05:28 11:46 23:49 WBC RBC Hgb Hct MCV MCH RDW Plt Count Lymph % (Auto) [place] % (Auto) Lymph # (Auto) [place] # (Auto) Seg Neutrophils % Seg Neuts % (Manual) Lymphocytes % (Manual) Monocytes % (Manual) Basophils % (Manual) Seg Neutrophils # Seg Neutrophils # Man Lymphocytes # (Manual) Monocytes # (Manual) Eosinophils # (Manual) Basophils # (Manual) PT INR D-Dimer ABG pH POC ABG pCO2 POC ABG pO2 ABG pO2 ABG HCO3 ABG O2 Saturation ABG Base Excess ABG Hemoglobin ABG Oxyhemoglobin ABG Potassium ABG Glucose Oxyhemoglobin Carboxyhemoglobin Sodium Potassium Chloride Carbon Dioxide BUN Creatinine Glucose POC Glucose 122 H 122 H 116 H Calcium Ferritin Total Bilirubin Alkaline Phosphatase Lactate Dehydrogenase Total Creatine Kinase CK-MB (CK-2) Rel Index Troponin T C-Reactive Protein Total Protein Albumin Prealbumin LDL Cholesterol Direct HDL Cholesterol Arterial Blood Glucose Arterial Blood Ionized Calcium Urine WBC (Auto) 04/12/20 04/12/20 04/12/20 09:07 09:07 11:39 WBC 13.1 H RBC 3.59 L Hgb 9.5 L Hct 29.8 L MCV 83 L MCH 26 L RDW 16.6 H Plt Count 591 H Lymph % (Auto) [place] % (Auto) Lymph # (Auto) [place] # (Auto) Seg Neutrophils % Seg Neuts % (Manual) 86.0 H Lymphocytes % (Manual) 7.0 L Monocytes % (Manual) Basophils % (Manual) Seg Neutrophils # Seg Neutrophils # Man 11.3 H Lymphocytes # (Manual) 0.9 L Monocytes # (Manual) Eosinophils # (Manual) Basophils # (Manual) PT INR D-Dimer ABG pH POC ABG pCO2 POC ABG pO2 ABG pO2 ABG HCO3 ABG O2 Saturation ABG Base Excess ABG Hemoglobin ABG Oxyhemoglobin ABG Potassium ABG Glucose Oxyhemoglobin Carboxyhemoglobin Sodium Potassium Chloride Carbon Dioxide 36 H BUN Creatinine < 0.2 L Glucose 132 H POC Glucose 136 H Calcium Ferritin Total Bilirubin Alkaline Phosphatase Lactate Dehydrogenase Total Creatine Kinase CK-MB (CK-2) Rel Index Troponin T C-Reactive Protein Total Protein Albumin 2.7 L Prealbumin LDL Cholesterol Direct HDL Cholesterol Arterial Blood Glucose Arterial Blood Ionized Calcium Urine WBC (Auto) 04/12/20 04/12/20 04/13/20 18:13 23:07 05:45 WBC RBC Hgb Hct MCV MCH RDW Plt Count Lymph % (Auto) [place] % (Auto) Lymph # (Auto) [place] # (Auto) Seg Neutrophils % Seg Neuts % (Manual) Lymphocytes % (Manual) Monocytes % (Manual) Basophils % (Manual) Seg Neutrophils # Seg Neutrophils # Man Lymphocytes # (Manual) Monocytes # (Manual) Eosinophils # (Manual) Basophils # (Manual) PT INR D-Dimer ABG pH POC ABG pCO2 POC ABG pO2 ABG pO2 ABG HCO3 ABG O2 Saturation ABG Base Excess ABG Hemoglobin ABG Oxyhemoglobin ABG Potassium ABG Glucose Oxyhemoglobin Carboxyhemoglobin Sodium Potassium Chloride Carbon Dioxide BUN Creatinine Glucose POC Glucose 107 H 106 H 125 H Calcium Ferritin Total Bilirubin Alkaline Phosphatase Lactate Dehydrogenase Total Creatine Kinase CK-MB (CK-2) Rel Index Troponin T C-Reactive Protein Total Protein Albumin Prealbumin LDL Cholesterol Direct HDL Cholesterol Arterial Blood Glucose Arterial Blood Ionized Calcium Urine WBC (Auto) 04/13/20 04/13/20 04/13/20 11:18 17:56 23:33 WBC RBC Hgb Hct MCV MCH RDW Plt Count Lymph % (Auto) [place] % (Auto) Lymph # (Auto) [place] # (Auto) Seg Neutrophils % Seg Neuts % (Manual) Lymphocytes % (Manual) Monocytes % (Manual) Basophils % (Manual) Seg Neutrophils # Seg Neutrophils # Man Lymphocytes # (Manual) Monocytes # (Manual) Eosinophils # (Manual) Basophils # (Manual) PT INR D-Dimer ABG pH POC ABG pCO2 POC ABG pO2 ABG pO2 ABG HCO3 ABG O2 Saturation ABG Base Excess ABG Hemoglobin ABG Oxyhemoglobin ABG Potassium ABG Glucose Oxyhemoglobin Carboxyhemoglobin Sodium Potassium Chloride Carbon Dioxide BUN Creatinine Glucose POC Glucose 133 H 110 H 114 H Calcium Ferritin Total Bilirubin Alkaline Phosphatase Lactate Dehydrogenase Total Creatine Kinase CK-MB (CK-2) Rel Index Troponin T C-Reactive Protein Total Protein Albumin Prealbumin LDL Cholesterol Direct HDL Cholesterol Arterial Blood Glucose Arterial Blood Ionized Calcium Urine WBC (Auto) 04/14/20 04/14/20 04/14/20 05:58 11:45 17:48 WBC RBC Hgb Hct MCV MCH RDW Plt Count Lymph % (Auto) [place] % (Auto) Lymph # (Auto) [place] # (Auto) Seg Neutrophils % Seg Neuts % (Manual) Lymphocytes % (Manual) Monocytes % (Manual) Basophils % (Manual) Seg Neutrophils # Seg Neutrophils # Man Lymphocytes # (Manual) Monocytes # (Manual) Eosinophils # (Manual) Basophils # (Manual) PT INR D-Dimer ABG pH POC ABG pCO2 POC ABG pO2 ABG pO2 ABG HCO3 ABG O2 Saturation ABG Base Excess ABG Hemoglobin ABG Oxyhemoglobin ABG Potassium ABG Glucose Oxyhemoglobin Carboxyhemoglobin Sodium Potassium Chloride Carbon Dioxide BUN Creatinine Glucose POC Glucose 115 H 122 H 124 H Calcium Ferritin Total Bilirubin Alkaline Phosphatase Lactate Dehydrogenase Total Creatine Kinase CK-MB (CK-2) Rel Index Troponin T C-Reactive Protein Total Protein Albumin Prealbumin LDL Cholesterol Direct HDL Cholesterol Arterial Blood Glucose Arterial Blood Ionized Calcium Urine WBC (Auto) 04/15/20 04/15/20 04/15/20 00:11 05:38 11:31 WBC RBC Hgb Hct MCV MCH RDW Plt Count Lymph % (Auto) [place] % (Auto) Lymph # (Auto) [place] # (Auto) Seg Neutrophils % Seg Neuts % (Manual) Lymphocytes % (Manual) Monocytes % (Manual) Basophils % (Manual) Seg Neutrophils # Seg Neutrophils # Man Lymphocytes # (Manual) Monocytes # (Manual) Eosinophils # (Manual) Basophils # (Manual) PT INR D-Dimer ABG pH POC ABG pCO2 POC ABG pO2 ABG pO2 ABG HCO3 ABG O2 Saturation ABG Base Excess ABG Hemoglobin ABG Oxyhemoglobin ABG Potassium ABG Glucose Oxyhemoglobin Carboxyhemoglobin Sodium Potassium Chloride Carbon Dioxide BUN Creatinine Glucose POC Glucose 120 H 109 H 123 H Calcium Ferritin Total Bilirubin Alkaline Phosphatase Lactate Dehydrogenase Total Creatine Kinase CK-MB (CK-2) Rel Index Troponin T C-Reactive Protein Total Protein Albumin Prealbumin LDL Cholesterol Direct HDL Cholesterol Arterial Blood Glucose Arterial Blood Ionized Calcium Urine WBC (Auto) 04/15/20 04/16/20 04/16/20 17:35 06:00 11:29 WBC RBC Hgb Hct MCV MCH RDW Plt Count Lymph % (Auto) [place] % (Auto) Lymph # (Auto) [place] # (Auto) Seg Neutrophils % Seg Neuts % (Manual) Lymphocytes % (Manual) Monocytes % (Manual) Basophils % (Manual) Seg Neutrophils # Seg Neutrophils # Man Lymphocytes # (Manual) Monocytes # (Manual) Eosinophils # (Manual) Basophils # (Manual) PT INR D-Dimer ABG pH POC ABG pCO2 POC ABG pO2 ABG pO2 ABG HCO3 ABG O2 Saturation ABG Base Excess ABG Hemoglobin ABG Oxyhemoglobin ABG Potassium ABG Glucose Oxyhemoglobin Carboxyhemoglobin Sodium Potassium Chloride Carbon Dioxide BUN Creatinine Glucose POC Glucose 111 H 142 H 108 H Calcium Ferritin Total Bilirubin Alkaline Phosphatase Lactate Dehydrogenase Total Creatine Kinase CK-MB (CK-2) Rel Index Troponin T C-Reactive Protein Total Protein Albumin Prealbumin LDL Cholesterol Direct HDL Cholesterol Arterial Blood Glucose Arterial Blood Ionized Calcium Urine WBC (Auto) 04/17/20 04/17/20 04/17/20 05:09 06:53 06:53 WBC 14.2 H RBC Hgb 10.1 L Hct 31.5 L MCV MCH 27 L RDW 17.2 H Plt Count 643 H Lymph % (Auto) [place] % (Auto) Lymph # (Auto) [place] # (Auto) Seg Neutrophils % Seg Neuts % (Manual) Lymphocytes % (Manual) Monocytes % (Manual) Basophils % (Manual) Seg Neutrophils # Seg Neutrophils # Man Lymphocytes # (Manual) Monocytes # (Manual) Eosinophils # (Manual) Basophils # (Manual) PT INR D-Dimer ABG pH POC ABG pCO2 POC ABG pO2 ABG pO2 ABG HCO3 ABG O2 Saturation ABG Base Excess ABG Hemoglobin ABG Oxyhemoglobin ABG Potassium ABG Glucose Oxyhemoglobin Carboxyhemoglobin Sodium Potassium Chloride 97.7 L Carbon Dioxide 38 H BUN Creatinine < 0.2 L Glucose 126 H POC Glucose 131 H Calcium Ferritin Total Bilirubin Alkaline Phosphatase Lactate Dehydrogenase Total Creatine Kinase CK-MB (CK-2) Rel Index Troponin T C-Reactive Protein Total Protein Albumin Prealbumin LDL Cholesterol Direct HDL Cholesterol Arterial Blood Glucose Arterial Blood Ionized Calcium Urine WBC (Auto) 04/17/20 04/18/20 04/18/20 11:21 00:23 04:01 WBC 15.3 H RBC Hgb 10.1 L Hct 31.9 L MCV 82 L MCH 26 L RDW 17.2 H Plt Count 665 H Lymph % (Auto) 12.9 L [place] % (Auto) Lymph # (Auto) [place] # (Auto) 1.1 H Seg Neutrophils % 78.0 H Seg Neuts % (Manual) Lymphocytes % (Manual) Monocytes % (Manual) Basophils % (Manual) Seg Neutrophils # 11.9 H Seg Neutrophils # Man Lymphocytes # (Manual) Monocytes # (Manual) Eosinophils # (Manual) Basophils # (Manual) PT INR D-Dimer ABG pH POC ABG pCO2 POC ABG pO2 ABG pO2 ABG HCO3 ABG O2 Saturation ABG Base Excess ABG Hemoglobin ABG Oxyhemoglobin ABG Potassium ABG Glucose Oxyhemoglobin Carboxyhemoglobin Sodium Potassium Chloride Carbon Dioxide BUN Creatinine Glucose POC Glucose 140 H 125 H Calcium Ferritin Total Bilirubin Alkaline Phosphatase Lactate Dehydrogenase Total Creatine Kinase CK-MB (CK-2) Rel Index Troponin T C-Reactive Protein Total Protein Albumin Prealbumin LDL Cholesterol Direct HDL Cholesterol Arterial Blood Glucose Arterial Blood Ionized Calcium Urine WBC (Auto) 04/18/20 04/18/20 04/18/20 04:01 11:29 17:30 WBC RBC Hgb Hct MCV MCH RDW Plt Count Lymph % (Auto) [place] % (Auto) Lymph # (Auto) [place] # (Auto) Seg Neutrophils % Seg Neuts % (Manual) Lymphocytes % (Manual) Monocytes % (Manual) Basophils % (Manual) Seg Neutrophils # Seg Neutrophils # Man Lymphocytes # (Manual) Monocytes # (Manual) Eosinophils # (Manual) Basophils # (Manual) PT INR D-Dimer ABG pH POC ABG pCO2 POC ABG pO2 ABG pO2 ABG HCO3 ABG O2 Saturation ABG Base Excess ABG Hemoglobin ABG Oxyhemoglobin ABG Potassium ABG Glucose Oxyhemoglobin Carboxyhemoglobin Sodium Potassium Chloride 97.0 L Carbon Dioxide 38 H BUN Creatinine < 0.2 L Glucose 117 H POC Glucose 136 H 107 H Calcium Ferritin Total Bilirubin Alkaline Phosphatase Lactate Dehydrogenase Total Creatine Kinase CK-MB (CK-2) Rel Index Troponin T C-Reactive Protein Total Protein Albumin Prealbumin LDL Cholesterol Direct HDL Cholesterol Arterial Blood Glucose Arterial Blood Ionized Calcium Urine WBC (Auto) 04/18/20 04/19/20 04/19/20 23:19 06:51 06:51 WBC 12.2 H RBC Hgb 9.8 L Hct 31.1 L MCV 82 L MCH 26 L RDW 17.2 H Plt Count 549 H Lymph % (Auto) 6.5 L [place] % (Auto) Lymph # (Auto) 0.8 L [place] # (Auto) Seg Neutrophils % 86.7 H Seg Neuts % (Manual) Lymphocytes % (Manual) Monocytes % (Manual) Basophils % (Manual) Seg Neutrophils # 10.6 H Seg Neutrophils # Man Lymphocytes # (Manual) Monocytes # (Manual) Eosinophils # (Manual) Basophils # (Manual) PT INR D-Dimer ABG pH POC ABG pCO2 POC ABG pO2 ABG pO2 ABG HCO3 ABG O2 Saturation ABG Base Excess ABG Hemoglobin ABG Oxyhemoglobin ABG Potassium ABG Glucose Oxyhemoglobin Carboxyhemoglobin Sodium Potassium Chloride 97.8 L Carbon Dioxide 38 H BUN Creatinine < 0.2 L Glucose 123 H POC Glucose 127 H Calcium Ferritin Total Bilirubin Alkaline Phosphatase Lactate Dehydrogenase Total Creatine Kinase CK-MB (CK-2) Rel Index Troponin T C-Reactive Protein Total Protein Albumin Prealbumin LDL Cholesterol Direct HDL Cholesterol Arterial Blood Glucose Arterial Blood Ionized Calcium Urine WBC (Auto) 04/19/20 04/19/20 04/20/20 13:41 18:33 05:56 WBC RBC Hgb Hct MCV MCH RDW Plt Count Lymph % (Auto) [place] % (Auto) Lymph # (Auto) [place] # (Auto) Seg Neutrophils % Seg Neuts % (Manual) Lymphocytes % (Manual) Monocytes % (Manual) Basophils % (Manual) Seg Neutrophils # Seg Neutrophils # Man Lymphocytes # (Manual) Monocytes # (Manual) Eosinophils # (Manual) Basophils # (Manual) PT INR D-Dimer ABG pH POC ABG pCO2 POC ABG pO2 ABG pO2 ABG HCO3 ABG O2 Saturation ABG Base Excess ABG Hemoglobin ABG Oxyhemoglobin ABG Potassium ABG Glucose Oxyhemoglobin Carboxyhemoglobin Sodium Potassium Chloride Carbon Dioxide BUN Creatinine Glucose POC Glucose 116 H 124 H 130 H Calcium Ferritin Total Bilirubin Alkaline Phosphatase Lactate Dehydrogenase Total Creatine Kinase CK-MB (CK-2) Rel Index Troponin T C-Reactive Protein Total Protein Albumin Prealbumin LDL Cholesterol Direct HDL Cholesterol Arterial Blood Glucose Arterial Blood Ionized Calcium Urine WBC (Auto) 04/20/20 04/20/20 04/20/20 06:28 06:28 11:46 WBC RBC Hgb 10.2 L Hct 31.5 L MCV 82 L MCH 27 L RDW 17.1 H Plt Count 546 H Lymph % (Auto) 10.0 L [place] % (Auto) 9.8 H Lymph # (Auto) 1.1 L [place] # (Auto) 1.1 H Seg Neutrophils % 78.4 H Seg Neuts % (Manual) Lymphocytes % (Manual) Monocytes % (Manual) Basophils % (Manual) Seg Neutrophils # 8.5 H Seg Neutrophils # Man Lymphocytes # (Manual) Monocytes # (Manual) Eosinophils # (Manual) Basophils # (Manual) PT INR D-Dimer ABG pH POC ABG pCO2 POC ABG pO2 ABG pO2 ABG HCO3 ABG O2 Saturation ABG Base Excess ABG Hemoglobin ABG Oxyhemoglobin ABG Potassium ABG Glucose Oxyhemoglobin Carboxyhemoglobin Sodium Potassium Chloride 97.0 L Carbon Dioxide 38 H BUN Creatinine < 0.2 L Glucose 138 H POC Glucose 130 H Calcium Ferritin Total Bilirubin Alkaline Phosphatase Lactate Dehydrogenase Total Creatine Kinase CK-MB (CK-2) Rel Index Troponin T C-Reactive Protein Total Protein Albumin Prealbumin LDL Cholesterol Direct HDL Cholesterol Arterial Blood Glucose Arterial Blood Ionized Calcium Urine WBC (Auto) 04/20/20 04/21/20 04/21/20 23:31 05:55 05:55 WBC RBC Hgb 10.0 L Hct 31.1 L MCV 82 L MCH 26 L RDW 17.0 H Plt Count 535 H Lymph % (Auto) [place] % (Auto) 9.2 H Lymph # (Auto) 1.1 L [place] # (Auto) Seg Neutrophils % 75.4 H Seg Neuts % (Manual) Lymphocytes % (Manual) Monocytes % (Manual) Basophils % (Manual) Seg Neutrophils # Seg Neutrophils # Man Lymphocytes # (Manual) Monocytes # (Manual) Eosinophils # (Manual) Basophils # (Manual) PT INR D-Dimer ABG pH POC ABG pCO2 POC ABG pO2 ABG pO2 ABG HCO3 ABG O2 Saturation ABG Base Excess ABG Hemoglobin ABG Oxyhemoglobin ABG Potassium ABG Glucose Oxyhemoglobin Carboxyhemoglobin Sodium Potassium Chloride 95.0 L Carbon Dioxide 34 H BUN Creatinine < 0.2 L Glucose 125 H POC Glucose 116 H Calcium Ferritin Total Bilirubin Alkaline Phosphatase Lactate Dehydrogenase Total Creatine Kinase CK-MB (CK-2) Rel Index Troponin T C-Reactive Protein Total Protein Albumin Prealbumin LDL Cholesterol Direct HDL Cholesterol Arterial Blood Glucose Arterial Blood Ionized Calcium Urine WBC (Auto) 04/22/20 04/22/20 04/22/20 00:01 07:45 07:45 WBC RBC Hgb 10.0 L Hct 30.7 L MCV 81 L MCH 27 L RDW 17.1 H Plt Count 490 H Lymph % (Auto) [place] % (Auto) Lymph # (Auto) [place] # (Auto) Seg Neutrophils % Seg Neuts % (Manual) 75.0 H Lymphocytes % (Manual) 11.0 L Monocytes % (Manual) 9.0 H Basophils % (Manual) Seg Neutrophils # Seg Neutrophils # Man Lymphocytes # (Manual) 0.8 L Monocytes # (Manual) Eosinophils # (Manual) Basophils # (Manual) PT INR D-Dimer ABG pH POC ABG pCO2 POC ABG pO2 ABG pO2 ABG HCO3 ABG O2 Saturation ABG Base Excess ABG Hemoglobin ABG Oxyhemoglobin ABG Potassium ABG Glucose Oxyhemoglobin Carboxyhemoglobin Sodium Potassium Chloride 96.3 L Carbon Dioxide 40 H BUN Creatinine < 0.2 L Glucose 109 H POC Glucose 110 H Calcium Ferritin Total Bilirubin Alkaline Phosphatase Lactate Dehydrogenase Total Creatine Kinase CK-MB (CK-2) Rel Index Troponin T C-Reactive Protein Total Protein Albumin Prealbumin LDL Cholesterol Direct HDL Cholesterol Arterial Blood Glucose Arterial Blood Ionized Calcium Urine WBC (Auto) 04/23/20 04/23/20 04/23/20 04:28 04:28 04:28 WBC RBC 3.64 L Hgb 9.7 L Hct 29.4 L MCV 81 L MCH 27 L RDW 17.2 H Plt Count 527 H Lymph % (Auto) [place] % (Auto) 8.9 H Lymph # (Auto) [place] # (Auto) Seg Neutrophils % Seg Neuts % (Manual) Lymphocytes % (Manual) Monocytes % (Manual) Basophils % (Manual) Seg Neutrophils # Seg Neutrophils # Man Lymphocytes # (Manual) Monocytes # (Manual) Eosinophils # (Manual) Basophils # (Manual) PT INR D-Dimer ABG pH POC ABG pCO2 POC ABG pO2 ABG pO2 ABG HCO3 ABG O2 Saturation ABG Base Excess ABG Hemoglobin ABG Oxyhemoglobin ABG Potassium ABG Glucose Oxyhemoglobin Carboxyhemoglobin Sodium Potassium Chloride 96.4 L Carbon Dioxide 32 H D BUN Creatinine < 0.2 L Glucose 134 H POC Glucose Calcium Ferritin Total Bilirubin Alkaline Phosphatase Lactate Dehydrogenase Total Creatine Kinase CK-MB (CK-2) Rel Index Troponin T 0.151 H* C-Reactive Protein Total Protein Albumin Prealbumin LDL Cholesterol Direct HDL Cholesterol 29 L Arterial Blood Glucose Arterial Blood Ionized Calcium Urine WBC (Auto) 04/23/20 04/23/20 04/24/20 06:03 23:41 05:28 WBC RBC 3.56 L Hgb 9.5 L Hct 28.9 L MCV 81 L MCH 27 L RDW 17.4 H Plt Count 462 H Lymph % (Auto) [place] % (Auto) Lymph # (Auto) [place] # (Auto) Seg Neutrophils % Seg Neuts % (Manual) 80.0 H Lymphocytes % (Manual) Monocytes % (Manual) Basophils % (Manual) Seg Neutrophils # Seg Neutrophils # Man Lymphocytes # (Manual) Monocytes # (Manual) Eosinophils # (Manual) Basophils # (Manual) PT INR D-Dimer ABG pH POC ABG pCO2 POC ABG pO2 ABG pO2 ABG HCO3 ABG O2 Saturation ABG Base Excess ABG Hemoglobin ABG Oxyhemoglobin ABG Potassium ABG Glucose Oxyhemoglobin Carboxyhemoglobin Sodium Potassium Chloride Carbon Dioxide BUN Creatinine Glucose POC Glucose 132 H 117 H Calcium Ferritin Total Bilirubin Alkaline Phosphatase Lactate Dehydrogenase Total Creatine Kinase CK-MB (CK-2) Rel Index Troponin T C-Reactive Protein Total Protein Albumin Prealbumin LDL Cholesterol Direct HDL Cholesterol Arterial Blood Glucose Arterial Blood Ionized Calcium Urine WBC (Auto) 04/24/20 04/24/20 04/24/20 05:28 05:28 05:33 WBC RBC Hgb Hct MCV MCH RDW Plt Count Lymph % (Auto) [place] % (Auto) Lymph # (Auto) [place] # (Auto) Seg Neutrophils % Seg Neuts % (Manual) Lymphocytes % (Manual) Monocytes % (Manual) Basophils % (Manual) Seg Neutrophils # Seg Neutrophils # Man Lymphocytes # (Manual) Monocytes # (Manual) Eosinophils # (Manual) Basophils # (Manual) PT INR D-Dimer ABG pH POC ABG pCO2 POC ABG pO2 ABG pO2 ABG HCO3 ABG O2 Saturation ABG Base Excess ABG Hemoglobin ABG Oxyhemoglobin ABG Potassium ABG Glucose Oxyhemoglobin Carboxyhemoglobin Sodium Potassium Chloride 96.1 L Carbon Dioxide 40 H D BUN Creatinine < 0.2 L Glucose 115 H POC Glucose 109 H Calcium Ferritin Total Bilirubin Alkaline Phosphatase Lactate Dehydrogenase Total Creatine Kinase CK-MB (CK-2) Rel Index Troponin T 0.181 H* C-Reactive Protein Total Protein Albumin Prealbumin LDL Cholesterol Direct HDL Cholesterol Arterial Blood Glucose Arterial Blood Ionized Calcium Urine WBC (Auto) 04/24/20 04/24/20 04/25/20 11:17 18:23 00:12 WBC RBC Hgb Hct MCV MCH RDW Plt Count Lymph % (Auto) [place] % (Auto) Lymph # (Auto) [place] # (Auto) Seg Neutrophils % Seg Neuts % (Manual) Lymphocytes % (Manual) Monocytes % (Manual) Basophils % (Manual) Seg Neutrophils # Seg Neutrophils # Man Lymphocytes # (Manual) Monocytes # (Manual) Eosinophils # (Manual) Basophils # (Manual) PT INR D-Dimer ABG pH POC ABG pCO2 POC ABG pO2 ABG pO2 ABG HCO3 ABG O2 Saturation ABG Base Excess ABG Hemoglobin ABG Oxyhemoglobin ABG Potassium ABG Glucose Oxyhemoglobin Carboxyhemoglobin Sodium Potassium Chloride Carbon Dioxide BUN Creatinine Glucose POC Glucose 117 H 109 H 113 H Calcium Ferritin Total Bilirubin Alkaline Phosphatase Lactate Dehydrogenase Total Creatine Kinase CK-MB (CK-2) Rel Index Troponin T C-Reactive Protein Total Protein Albumin Prealbumin LDL Cholesterol Direct HDL Cholesterol Arterial Blood Glucose Arterial Blood Ionized Calcium Urine WBC (Auto) 04/25/20 04/25/20 04/25/20 06:34 06:34 11:28 WBC 11.7 H RBC Hgb 10.0 L Hct 31.7 L MCV 82 L MCH 26 L RDW 17.5 H Plt Count 564 H Lymph % (Auto) [place] % (Auto) Lymph # (Auto) [place] # (Auto) Seg Neutrophils % Seg Neuts % (Manual) 78.0 H Lymphocytes % (Manual) 10.0 L Monocytes % (Manual) 9.0 H Basophils % (Manual) Seg Neutrophils # Seg Neutrophils # Man 9.1 H Lymphocytes # (Manual) Monocytes # (Manual) 1.1 H Eosinophils # (Manual) Basophils # (Manual) PT INR D-Dimer ABG pH POC ABG pCO2 POC ABG pO2 ABG pO2 ABG HCO3 ABG O2 Saturation ABG Base Excess ABG Hemoglobin ABG Oxyhemoglobin ABG Potassium ABG Glucose Oxyhemoglobin Carboxyhemoglobin Sodium Potassium Chloride Carbon Dioxide 39 H BUN Creatinine < 0.2 L Glucose 103 H POC Glucose 112 H Calcium Ferritin Total Bilirubin Alkaline Phosphatase Lactate Dehydrogenase Total Creatine Kinase CK-MB (CK-2) Rel Index Troponin T C-Reactive Protein Total Protein Albumin Prealbumin LDL Cholesterol Direct HDL Cholesterol Arterial Blood Glucose Arterial Blood Ionized Calcium Urine WBC (Auto) 04/27/20 04/27/20 04/27/20 11:48 17:08 23:31 WBC RBC Hgb Hct MCV MCH RDW Plt Count Lymph % (Auto) [place] % (Auto) Lymph # (Auto) [place] # (Auto) Seg Neutrophils % Seg Neuts % (Manual) Lymphocytes % (Manual) Monocytes % (Manual) Basophils % (Manual) Seg Neutrophils # Seg Neutrophils # Man Lymphocytes # (Manual) Monocytes # (Manual) Eosinophils # (Manual) Basophils # (Manual) PT INR D-Dimer ABG pH POC ABG pCO2 POC ABG pO2 ABG pO2 ABG HCO3 ABG O2 Saturation ABG Base Excess ABG Hemoglobin ABG Oxyhemoglobin ABG Potassium ABG Glucose Oxyhemoglobin Carboxyhemoglobin Sodium Potassium Chloride Carbon Dioxide BUN Creatinine Glucose POC Glucose 124 H 118 H 122 H Calcium Ferritin Total Bilirubin Alkaline Phosphatase Lactate Dehydrogenase Total Creatine Kinase CK-MB (CK-2) Rel Index Troponin T C-Reactive Protein Total Protein Albumin Prealbumin LDL Cholesterol Direct HDL Cholesterol Arterial Blood Glucose Arterial Blood Ionized Calcium Urine WBC (Auto) 04/28/20 04/29/20 04/29/20 05:42 00:14 05:30 WBC RBC Hgb Hct MCV MCH RDW Plt Count Lymph % (Auto) [place] % (Auto) Lymph # (Auto) [place] # (Auto) Seg Neutrophils % Seg Neuts % (Manual) Lymphocytes % (Manual) Monocytes % (Manual) Basophils % (Manual) Seg Neutrophils # Seg Neutrophils # Man Lymphocytes # (Manual) Monocytes # (Manual) Eosinophils # (Manual) Basophils # (Manual) PT INR D-Dimer ABG pH POC ABG pCO2 POC ABG pO2 ABG pO2 ABG HCO3 ABG O2 Saturation ABG Base Excess ABG Hemoglobin ABG Oxyhemoglobin ABG Potassium ABG Glucose Oxyhemoglobin Carboxyhemoglobin Sodium Potassium Chloride Carbon Dioxide BUN Creatinine Glucose POC Glucose 122 H 115 H 123 H Calcium Ferritin Total Bilirubin Alkaline Phosphatase Lactate Dehydrogenase Total Creatine Kinase CK-MB (CK-2) Rel Index Troponin T C-Reactive Protein Total Protein Albumin Prealbumin LDL Cholesterol Direct HDL Cholesterol Arterial Blood Glucose Arterial Blood Ionized Calcium Urine WBC (Auto) Allied health notes reviewed: nursing
--- NOTE | 2020-04-29 16:00 | Progress Note ---
Subjective Date of service: 04/29/20 Principal diagnosis: Ac on Ch Hypercapnic & hypoxemic Resp Failure; Severe Sepsis; Jamar PNA; ALS Interval history: Assessment and plan: --Acute hypoxic hypercapnic respiratory failure; S/p tracheostomy on ventilatory support etiology secondary to sepsis, ALS, multifocal pneumonia (Covid negative). Pulmonary following --Constipation; Patient already received Dulcolax suppository and Colace Received milk of magnesia, with relief --History of ALS - Stable --Elevated D-dimers; imaging studies negative for PE and DVT --Bilateral pneumonia; probably community-acquired Completed the treatment, continue supportive care --Sepsis secondary to pneumonia; completed the treatment resolved --Elevated troponin Cardiology to revaluate his chest pain and elevated troponin Started him on low dose aspirin for now --Febrile illness; resolved ,secondary to pneumonia Complete antibiotics , resolved --DVT prophylaxis; Lovenox. 02/25/2020. CTA of the chest reveals no PE but does illustrate the bilateral pneumonia. Doppler ultrasound also negative for DVT. Blood cultures are pending. Await COVID-19 testing. Patient currently requiring BiPAP IPAP 24/EPAP 6 with FiO2 of 25%. Continue O2 and BiPAP as clinically indicated. ID and pulmonary consulted. 02/26/2020. Blood cultures are negative x48 hours and Covid testing negative as well. Continue antibiotics per ID recommendations for community-acquired bilateral pneumonia. Cardiology consultation for elevated troponin. Check echocardiogram. 02/27/2020. Events of yesterday noted with asystole following V. fib arrest. Patient currently on AC mode rate 20, tidal volume 400, FiO2 50% and a PEEP of 6. Follow-up echocardiogram for elevated troponin. Cardiology suspects NSTEMI Type 2 in the setting of acute resp failure. Chest CTA and BLE Dopplers neg. we will discontinue Decadron given the Covid PCR is negative. 02/28/2020. I spoke with the sister Felisa Eli who is the power of defense attorney regarding advanced directives and she instructed me that she would like to continue with aggressive care at this time. I informed her of the guarded prognosis and high mortality/morbidity and she voiced understanding. Patient currently with AC mode ventilation rate 18, tidal volume 400, FiO2 40% and a PEEP of 6. Continue antibiotics for pneumonia. ID previously consulted. Also consult neurology with regards to ALS. 02/29/2020; patient is intubated and on CPAP patient is alert and oriented. Patient has ALS. Dr. Álvarez spoke with his sister and she wants aggressive care. Continue antibiotics for pneumonia. Neurology consulted for ALS. Prognosis poor 03/01/2020; patient is intubated and on CPAP, patient is alert and oriented. I spoke with his 2 sisters about the management plan. 03/02/2020; patient is intubated and on CPAP. Patient was alert and oriented. I spoke with Dr. mohr and he thinks patient may need mechanical ventilation, likely his disease progressed. Dr. Flowers did debridement this morning. 03/03/2020; patient is intubated and on CPAP, patient was on trilogy and BiPAP at home. Patient has ALS. on spontaneous breathing trial. Patient is alert and oriented but quadriplegic. Patient has severe bilateral pneumonia and is on cefepime and Vanco, ID is following. Patient has sacral decubitus ulcer and debridement was done by Dr. Flowers and there is no osteomyelitis. 03/05. Patient still on broad-spectrum antibiotics. Status post sacral decubitus ulcer debridements-no osteomyelitis. Patient is on AC 25/400/30% PEEP 5. No blood gas results today. 03/06. Plan for tracheostomy by surgery. Still remains intubated. Labs reviewed-sodium 150. Started on free water 200 every 8hr. trend sodium. 03/07: s/p trach placement today, patient placed back on mechanical ventilation with trach. Plan to resume tube feeding with NG tube. Continue to monitor vitals, monitor BMP. 03/08: Patient noted to have distended abdomen with low urinary output. Obtain bladder scan rule out urine retention, UA and urine culture, continue to follow clinically. 03/09: Patient noted to have low blood pressure with SBP as low as 70s. Ordered for 500 mils normal saline bolus. CT abdomen showed bladder outlet obstruction, urology consulted. 03/10: placed on drake by urology o/n, improved urine outpt. cont to monitor BM P. resuded TF - cont free water with TF. wean off from vent as tolerated. 03/11: Vitals stable. cont TF, wean off from vent as tolerated. start on 1/2 NS for hypernatremia - follow BMP 03/12: wean off vent as tolerated, plan for speech eval, cont Tf for now, cont iv fluid 03/13: unable to wean off from vent, unable to do speech therapy eval. will need PEG tube, cont supportive care for now, cont NG tube feeding 03/14: consulted GI for PEg placemnet, cont supportive care. remains on vent at night 03/15: Discussed with GI, plan for PEG tube placement possibly tomorrow. Continue supportive care and wean off from vent as tolerated. Hold Lovenox dose tonight. 03/16: family didnot consent for PEG placement yesterday. I spoke with the daughter today and she is now agreeable for PEG tube. I explained the necessity of the procedure with RN to the patient also and he nodded started on tube feeding, for the procedure. will cont supportive care. planned for PEG tube placement tomorrow. 03/17: s/p PEG placement today, patient tolerated well, cont supportive care 03/18: Started on tube feeding with new PEG tube, continue to wean off vent as tolerated 03/19: cont to monitor with supportive care, wean off vent as tolerated 03/20: Continue to wean off vent as tolerated -but failing weaning trial. Still requiring vent support at night. Currently on PEG tube for tube feed. 03/21. Pt with PSV trials with FiO@ 30%, PEEP 6, PS 10. Currently on PEG tube for tube feed. 03/22/2020. Continue PSV trials per pulmonary. Continue bronchodilators. Patient tolerating tube feedings. Continue Robinul for secretion control. 03/23/2020. Continue PSV trials per pulmonary. Continue bronchodilators. Continue Scopolamine and Robinul for secretion control. Trach care/airway man agement. Mobility protocols for pressure ulcer prophylaxis. LTAC evaluation per case management 03/24/2020. Continue PSV trials with current settings pressure support 10, PEEP 6 and FiO2 30%. Continue bronchodilators/nebulizer. Continue Scopolamine and Robinul for secretion control. Trach care/airway management. Mobility protocols for pressure ulcer prophylaxis. LTAC evaluation per case management 03/25/2020. Pulmonary to proceed with T-piece trials today. Continue bronchodilators/nebulizer. Continue Scopolamine and Robinul for secretion control. Trach care/airway management. Mobility protocols for pressure ulcer prophylaxis. 03/26/2020. Patient currently with PSV 10/6 at FiO2 of 30%. Continue weaning and T-piece trials per protocol. Continue bronchodilators/nebulizer. Continue Scopolamine and Robinul for secretion control. Trach care/airway management. Mobility protocols for pressure ulcer prophylaxis. Continue tube feeding with aspiration precautions. 03/27/2020. Patient currently with PSV / at FiO2 of 30%. Continue weaning and T-piece trials per protocol. Continue bronchodilators/nebulizer. Continue Scopolamine and Robinul for secretion control. Trach care/airway management. Mobility protocols for pressure ulcer prophylaxis. Continue tube feeding with aspiration precautions. 03/28. Had temp 100.7F. He has been off antibiotics. Will send blood culture, ua, urine culture and chest xray. Had chest pain overnight and trop was elevated as well. Cardiology to evaluate 03/29. Has back pain due to position. He mentions his chest pain is positional. Has no other complaints. Still on mechanical ventilation 03/30. No chest pain today. Labs reviewed. Discussed chest pain with cardiology and team advised no further work up at this time. Can follow up with cardiology in the office after hospitalization 03/31. Lidocaine patch for lower back pain. 04/01. Discharge planning underway. CM notes reviewed. Discussed with daughter 04/02 - . CM trying to arrange discharge. Continue PSV trials. Discussed with patients significant other 04/04/2020; CM is working for discharge arrangement. Continue PSV trials. 04/05/2020; patient was seen and evaluated this morning and no change from baseline. Continue with PSV trials. Follow with [employer] for discharge planning. 04/06/2020;patient was seen and evaluated this morning and no change from mag[facility] her[facility]. Continue with PSV trials. Follow with [employer] for discharge planning. 04/07/2020; patient was seen and evaluated this morning and no change from baseline. Continue with PSV trials. Follow with [employer] for discharge planning. 04/08/2020; patient is vent dependent. Discharge is per [employer]. 04/09/2020 patient is vent dependent, possible LTAC placement 04/10/2020; tracheostomy on vent, vent dependent pending LTAC placement 04/11/2020; clinically no change, tracheostomy on ventilatory support, wean as tolerated, awaiting placement 04/12/2020; remains on ventilatory support, unable to wean, patient wants to see a speech therapist for sound box However we cannot try that as long as he is on ventilatory support, once he is weaned off vent We will consult speech therapist, plan of care reviewed with the patient and his nurse 04/14/2020; clinically no change, on ventilatory support, complains of constipation, milk of magnesia Closely monitor the patient and adjust the management as needed 04/15/2020; patient has some oral thrush on the tongue, will give Magic mouthwash/nystatin swish and spit Wean off vent as tolerated 04/16 patient is alert and oriented, unable to comprehend what he is trying to tell but appears to complain of some pain, no acute events overnight, all interdisciplinary notes reviewed. Waiting for LTAC versus detention facility placement 04/17/2020. Continue supportive care with mechanical ventilation. Patient currently on AC mode rate 10, tidal volume 400 FiO2 30% with a PEEP of 6. Discharge planning per case management. 04/18/2020. Patient remains on mechanical ventilation AC mode rate 10, tidal volume 400, FiO2 30% and PEEP of 6. Continue spontaneous breathing trials as tolerated. Previously, patient was considered for discharge home with skilled staff providing care for 12 hours 7 days/week. Continue discussed with case management discharge planning. 04/19/20. Patient remains on mechanical ventilation AC mode rate 10, tidal volume 400, FiO2 30% and PEEP of 6. Continue spontaneous breathing trials as tolerated. 04/20/2020. Patient remains on mechanical ventilation AC mode rate 10, tidal volume 400, FiO2 30% and PEEP of 6. Continue spontaneous breathing trials as tolerated. 04/21/2020. Patient remains on mechanical ventilation AC mode rate 10, tidal volume 400, FiO2 30% and PEEP of 6. Continue tracheostomy care, secretion control and airway management. Continue spontaneous breathing trials as tolerated. 04/22/2020. Patient remains on mechanical ventilation AC mode rate 10, tidal v olume 400, FiO2 30% and PEEP of 6. Continue tracheostomy care, secretion control and airway management. Continue spontaneous breathing trials as tolerated. 04/23/2020. Patient on mechanical ventilation AC mode rate 18, tidal volume 450, FiO2 30% and PEEP of 6. Continue tracheostomy care, secretion control and airway management. Continue spontaneous breathing trials as tolerated. Continue Robinul and scopolamine for secretions. Continue baclofen. 04/24/2020. Patient remains on AC mode ventilation rate 10, tidal volume 400, FiO2 30% and PEEP of 6. Continue tracheostomy care, secretion control and airway management. Continue spontaneous breathing trials as tolerated. Continue Robinul and scopolamine for secretions. Continue baclofen. Continue Xanax for anxiety and Ambien for sleep. Await case management follow-up with regards to discharge planning. 04/25/2020. Patient remains on AC mode ventilation rate 10, tidal volume 400, FiO2 30% and PEEP of 6. Continue tracheostomy care, secretion control and airway management. Continue spontaneous breathing trials as tolerated. Continue Robinul and scopolamine for secretions. Continue baclofen. Continue Xanax for anxiety and Ambien for sleep. Await case management follow-up with regards to discharge planning. 04/26. Patient remains on AC mode ventilation rate 10, tidal volume 400, FiO2 30% and PEEP of 6. Continue tracheostomy care, secretion control and airway management. Continue spontaneous breathing trials as tolerated. Continue Robinul and scopolamine for secretions. Continue baclofen. Continue Xanax for anxiety and Ambien for sleep. Await case management follow-up with regards to discharge planning. 04/27. Patient remains on AC mode ventilation rate 10, tidal volume 400, FiO2 30% and PEEP of 6. Continue tracheostomy care, secretion control and airway management. Continue spontaneous breathing trials as tolerated. Continue Robinul and scopolamine for secretions. Continue baclofen. Continue Xanax for anxiety and Ambien for sleep. Await case management follow-up with regards to discharge [facility]. 04/28/20 no acute events overnight, remains vent dependent, cardiology and pulmonary notes reviewed 04/29 remains intubated via tracheostomy, no acute events Hospitalist Physical Narrative exam: VITAL SIGNS: Reviewed. GENERAL: Awake. trach to vent HEAD: No signs of head trauma. EYES: Pupils are equal. Extraocular motions intact. EARS: Hearing grossly intact. NECK: No adenopathy, no JVD. Tracheostomy CHEST: Coarse breath sounds bilaterally CARDIAC: Regular rate and rhythm. VASCULAR: No Edema. ABDOMEN: Soft, non tender and non distended. Has a functioning PEG tube NEUROLOGIC EXAM: Awake SKIN: No obvious lesions Objective - Constitutional Vitals: Vital Signs - 12hr 04/29/20 04/29/20 04/29/20 04:00 05:00 06:00 Temperature 97.8 F Pulse Rate 107 H 103 H 105 H Respiratory 18 14 17 Rate Blood Pressure 100/57 98/59 98/64 O2 Sat by Pulse 99 100 100 Oximetry O2 Sat by Pulse Oximetry [ Assessment] 04/29/20 04/29/20 04/29/20 07:00 08:00 08:38 Temperature 98.0 F Pulse Rate 98 H 93 H 103 H Respiratory 14 11 L Rate Blood Pressure 92/63 99/61 99/61 O2 Sat by Pulse 100 100 100 Oximetry O2 Sat by Pulse Oximetry [ Assessment] 04/29/20 04/29/20 04/29/20 09:00 09:04 10:00 Temperature Pulse Rate 107 H 104 H 87 Respiratory 18 18 Rate Blood Pressure 105/72 105/72 89/59 O2 Sat by Pulse 97 100 Oximetry O2 Sat by Pulse Oximetry [ Assessment] 04/29/20 04/29/20 04/29/20 11:00 11:24 12:00 Temperature 98.2 F Pulse Rate 86 90 90 Respiratory 16 19 Rate Blood Pressure 87/62 87/62 80/59 O2 Sat by Pulse 100 100 100 Oximetry O2 Sat by Pulse Oximetry [ Assessment] 04/29/20 04/29/20 04/29/20 13:00 14:00 14:03 Temperature Pulse Rate 92 H 100 H Respiratory 17 20 Rate Blood Pressure 98/60 103/69 O2 Sat by Pulse 100 100 Oximetry O2 Sat by Pulse 100 Oximetry [ Assessment] 04/29/20 15:00 Temperature Pulse Rate 95 H Respiratory 20 Rate Blood Pressure 97/64 O2 Sat by Pulse Oximetry O2 Sat by Pulse Oximetry [ Assessment] - Labs CBC & Chem 7: 04/25/20 06:34 04/25/20 06:34 Labs: Abnormal lab results 04/29/20 04/29/20 Range/Units 00:14 05:30 POC Glucose 115 H 123 H (70-105) mg/dL HEART Score - HEART Score Troponin: Troponin T 0.181 ng/mL (0.00-0.029) H* 04/24/20 05:28
[2020-04-29] MEDS: SENNOSIDES 8.6 MG TAB PO SCH (22:37)
[2020-04-29] MEDS: ENOXAPARIN 40 MG/0.4 ML INJ SUB-Q SCH (22:38)
[2020-04-29] MEDS: ZOLPIDEM 5 MG TAB PO PRN (22:44)
[2020-04-30] MEDS: traMADol 50 MG TAB PO PRN ×2 (05:23→18:03)
[2020-04-30] MEDS: MAGNESIUM HYDROXIDE (MOM) ORAL LIQD UDC PO PRN ×2 (05:23→22:53)
[2020-04-30] MEDS: GLYCOPYRROLATE 1 MG TAB PO SCH ×3 (07:27→22:59)
[2020-04-30] MEDS: MORPHINE 2 MG/1 ML INJ IV PRN ×4 (07:28→22:50)
[2020-04-30] MEDS: ALPRAZolam 0.5 MG TAB PO PRN ×3 (07:28→23:00)
[2020-04-30] MEDS: LIDOCAINE 5% 1 EACH PATCH TD SCH ×2 (07:31→11:11)
[2020-04-30] MEDS: MAGIC MOUTHWASH 30ML PO SCH ×3 (08:47→22:51)
[2020-04-30] MEDS: BACLOFEN 10 MG TAB PO SCH ×2 (10:52→22:52)
[2020-04-30] MEDS: PREGABALIN 75 MG CAP PO SCH ×2 (10:52→22:52)
[2020-04-30] MEDS: LANSOPRAZOLE 30 MG SOLUTAB FEEDTUBE SCH (10:52)
[2020-04-30] MEDS: ASPIRIN EC 81 MG TAB PO SCH (10:52)
[2020-04-30] MEDS: DOCUSATE SODIUM 100 MG/10 ML ORAL LIQD FEEDTUBE SCH ×2 (10:52→22:51)
[2020-04-30] MEDS: TAMSULOSIN 0.4 MG CAP PO SCH (10:53)
[2020-04-30] MEDS: METOPROLOL TARTRATE 25 MG TAB PO SCH ×2 (10:53→22:52)
[2020-04-30] MEDS: SODIUM HYPOCHLORITE, DAKIN'S 1/2 STRENGTH (0.25%) 473 ML TOPICAL SOLN TP SCH ×2 (11:13→22:54)
--- NOTE | 2020-04-30 11:23 | Progress Note ---
Assessment and Plan Mildly elevated troponin likely c/w type 2 nstemi (was elevated similarly ~ 1 month ago) No new ecg changes on 04/28 TTE from 02/25 re-reviewed Pt denies any recent cp cont asa Would consider stress test when pt is more clinically stable and prior to dc. - Patient Problems (1) Elevated d-dimer Current Visit: Yes Status: Acute (2) Elevated troponin Current Visit: Yes Status: Acute (3) NSTEMI (non-ST elevated myocardial infarction) Current Visit: Yes Status: Acute (4) Respiratory failure Current Visit: Yes Status: Acute (5) Sepsis Current Visit: Yes Status: Acute (6) Severe protein-calorie malnutrition Current Visit: Yes Status: Acute (7) Toxic metabolic encephalopathy Current Visit: Yes Status: Acute (8) ALS (amyotrophic lateral sclerosis) Current Visit: Yes Status: Chronic (9) ETOH abuse Current Visit: Yes Status: Chronic Subjective Principal diagnosis: Ac on Ch Hypercapnic & hypoxemic Resp Failure; Severe Sepsis; Jamar PNA; ALS Interval history: seen in icu no complaints no cp or sob Objective Vital Signs Temp Pulse Resp Resp Resp BP Pulse Ox 04/30/20 10:53 93 H 101/70 04/30/20 09:00 93 H 10 L 101/71 98 04/30/20 08:48 93 H 104/71 98 04/30/20 08:00 98 H 15 104/75 98 04/30/20 07:28 12 04/30/20 07:00 102 H 15 107/78 97 04/30/20 06:23 20 04/30/20 06:00 96 H 10 L 110/78 97 04/30/20 05:23 13 04/30/20 05:00 108 H 16 115/77 96 04/30/20 04:04 108 H 04/30/20 04:00 97 H 16 105/68 100 04/30/20 03:38 97.9 F 04/30/20 03:00 93 H 14 106/65 100 04/30/20 02:00 94 H 13 97/66 99 04/30/20 01:45 95 H 04/30/20 01:00 94 H 12 106/64 100 04/30/20 00:00 97.8 F 96 H 11 L 105/68 100 04/29/20 23:14 12 04/29/20 23:00 106 H 12 110/70 99 04/29/20 22:44 12 04/29/20 22:38 108 H 100/66 04/29/20 22:00 107 H 12 16 1 L 100/72 100 04/29/20 21:00 105 H 19 107/68 100 04/29/20 20:45 108 H 100/69 100 04/29/20 20:00 98.0 F 104 H 19 104/70 100 04/29/20 19:25 20 04/29/20 19:19 102 H 04/29/20 19:00 108 H 19 106/68 100 04/29/20 18:19 106 H 17 103/69 99 04/29/20 18:00 104 H 21 103/69 100 04/29/20 17:00 102 H 20 101/71 100 04/29/20 16:26 107 H 110/74 100 04/29/20 16:00 97.9 F 105 H 24 110/74 100 04/29/20 15:00 95 H 20 97/64 04/29/20 14:03 04/29/20 14:00 100 H 20 103/69 100 04/29/20 13:00 92 H 17 98/60 100 04/29/20 12:00 98.2 F 93 H 19 80/59 100 04/29/20 11:24 90 87/62 100 Pulse Ox 04/30/20 10:53 04/30/20 09:00 04/30/20 08:48 04/30/20 08:00 04/30/20 07:28 04/30/20 07:00 04/30/20 06:23 04/30/20 06:00 04/30/20 05:23 04/30/20 05:00 04/30/20 04:04 04/30/20 04:00 04/30/20 03:38 04/30/20 03:00 04/30/20 02:00 04/30/20 01:45 04/30/20 01:00 04/30/20 00:00 04/29/20 23:14 04/29/20 23:00 04/29/20 22:44 04/29/20 22:38 04/29/20 22:00 04/29/20 21:00 04/29/20 20:45 04/29/20 20:00 04/29/20 19:25 04/29/20 19:19 04/29/20 19:00 04/29/20 18:19 04/29/20 18:00 04/29/20 17:00 04/29/20 16:26 04/29/20 16:00 04/29/20 15:00 04/29/20 14:03 100 04/29/20 14:00 04/29/20 13:00 04/29/20 12:00 04/29/20 11:24 - Physical Examination General: No Apparent Distress HEENT: Positive: Normocephaly Neck: Positive: neck supple. Negative: JVD/HJR Neuro: Positive: Other (unable to assess) Abdomen: Positive: Soft, Active Bowel Sounds Skin: Positive: Wound. Negative: Rash Musculoskeletal: No Fluid Collection Extremities: Present: lower extr. pulses. Absent: edema - Imaging and Cardiology EKG: report reviewed, image reviewed Echo: report reviewed (02/26/2020 - EF 50-55%; impaired LV relaxation; no pericardial effusion) - EKG Sinus rhythms and dysrhythmias: sinus tachycardia Repolarization changes or abnormalities: nonspecific abnormality, ST segment, and/or T wave - Allied health notes Allied health notes reviewed: nursing
--- NOTE | 2020-04-30 11:37 | Progress Note ---
Subjective Date of service: 04/30/20 Principal diagnosis: Ac on Ch Hypercapnic & hypoxemic Resp Failure; Severe Sepsis; Jamar PNA; ALS Interval history: Assessment and plan: --Acute hypoxic hypercapnic respiratory failure; S/p tracheostomy on ventilatory support etiology secondary to sepsis, ALS, multifocal pneumonia (Covid negative). Pulmonary following --Constipation; Patient already received Dulcolax suppository and Colace Received milk of magnesia, with relief --History of ALS - Stable --Elevated D-dimers; imaging studies negative for PE and DVT --Bilateral pneumonia; probably community-acquired Completed the treatment, continue supportive care --Sepsis secondary to pneumonia; completed the treatment resolved --Elevated troponin Cardiology to revaluate his chest pain and elevated troponin Started him on low dose aspirin for now --Febrile illness; resolved ,secondary to pneumonia Complete antibiotics , resolved --DVT prophylaxis; Lovenox. 02/25/2020. CTA of the chest reveals no PE but does illustrate the bilateral pneumonia. Doppler ultrasound also negative for DVT. Blood cultures are pending. Await COVID-19 testing. Patient currently requiring BiPAP IPAP 24/EPAP 6 with FiO2 of 25%. Continue O2 and BiPAP as clinically indicated. ID and pulmonary consulted. 02/26/2020. Blood cultures are negative x48 hours and Covid testing negative as well. Continue antibiotics per ID recommendations for community-acquired bilateral pneumonia. Cardiology consultation for elevated troponin. Check echocardiogram. 02/27/2020. Events of yesterday noted with asystole following V. fib arrest. Patient currently on AC mode rate 20, tidal volume 400, FiO2 50% and a PEEP of 6. Follow-up echocardiogram for elevated troponin. Cardiology suspects NSTEMI Type 2 in the setting of acute resp failure. Chest CTA and BLE Dopplers neg. we will discontinue Decadron given the Covid PCR is negative. 02/28/2020. I spoke with the sister Felisa Eli who is the power of attorney lawyer regarding advanced directives and she instructed me that she would like to continue with aggressive care at this time. I informed her of the guarded prognosis and high mortality/morbidity and she voiced understanding. Patient currently with AC mode ventilation rate 18, tidal volume 400, FiO2 40% and a PEEP of 6. Continue antibiotics for pneumonia. ID previously consulted. Also consult neurology with regards to ALS. 02/29/2020; patient is intubated and on CPAP patient is alert and oriented. Patient has ALS. Dr. Álvarez spoke with his sister and she wants aggressive care. Continue antibiotics for pneumonia. Neurology consulted for ALS. Prognosis poor 03/01/2020; patient is intubated and on CPAP, patient is alert and oriented. I spoke with his 2 sisters about the management plan. 03/02/2020; patient is intubated and on CPAP. Patient was alert and oriented. I spoke with Dr. mohr and he thinks patient may need mechanical ventilation, likely his disease progressed. Dr. Flowers did debridement this morning. 03/03/2020; patient is intubated and on CPAP, patient was on trilogy and BiPAP at home. Patient has ALS. on spontaneous breathing trial. Patient is alert and oriented but quadriplegic. Patient has severe bilateral pneumonia and is on cefepime and Vanco, ID is following. Patient has sacral decubitus ulcer and debridement was done by Dr. Flowers and there is no osteomyelitis. 03/05. Patient still on broad-spectrum antibiotics. Status post sacral decubitus ulcer debridements-no osteomyelitis. Patient is on AC 25/400/30% PEEP 5. No blood gas results today. 03/06. Plan for tracheostomy by surgery. Still remains intubated. Labs reviewed-sodium 150. Started on free water 200 every 8hr. trend sodium. 03/07: s/p trach placement today, patient placed back on mechanical ventilation with trach. Plan to resume tube feeding with NG tube. Continue to monitor vitals, monitor BMP. 03/08: Patient noted to have distended abdomen with low urinary output. Obtain bladder scan rule out urine retention, UA and urine culture, continue to follow clinically. 03/09: Patient noted to have low blood pressure with SBP as low as 70s. Ordered for 500 mils normal saline bolus. CT abdomen showed bladder outlet obstruction, urology consulted. 03/10: placed on drake by urology o/n, improved urine outpt. cont to monitor BM P. resuded TF - cont free water with TF. wean off from vent as tolerated. 03/11: Vitals stable. cont TF, wean off from vent as tolerated. start on 1/2 NS for hypernatremia - follow BMP 03/12: wean off vent as tolerated, plan for speech eval, cont Tf for now, cont iv fluid 03/13: unable to wean off from vent, unable to do speech therapy eval. will need PEG tube, cont supportive care for now, cont NG tube feeding 03/14: consulted GI for PEg placemnet, cont supportive care. remains on vent at night 03/15: Discussed with GI, plan for PEG tube placement possibly tomorrow. Continue supportive care and wean off from vent as tolerated. Hold Lovenox dose tonight. 03/16: family didnot consent for PEG placement yesterday. I spoke with the daughter today and she is now agreeable for PEG tube. I explained the necessity of the procedure with RN to the patient also and he nodded started on tube feeding, for the procedure. will cont supportive care. planned for PEG tube placement tomorrow. 03/17: s/p PEG placement today, patient tolerated well, cont supportive care 03/18: Started on tube feeding with new PEG tube, continue to wean off vent as tolerated 03/19: cont to monitor with supportive care, wean off vent as tolerated 03/20: Continue to wean off vent as tolerated -but failing weaning trial. Still requiring vent support at night. Currently on PEG tube for tube feed. 03/21. Pt with PSV trials with FiO@ 30%, PEEP 6, PS 10. Currently on PEG tube for tube feed. 03/22/2020. Continue PSV trials per pulmonary. Continue bronchodilators. Patient tolerating tube feedings. Continue Robinul for secretion control. 03/23/2020. Continue PSV trials per pulmonary. Continue bronchodilators. Continue Scopolamine and Robinul for secretion control. Trach care/airway man agement. Mobility protocols for pressure ulcer prophylaxis. LTAC evaluation per case management 03/24/2020. Continue PSV trials with current settings pressure support 10, PEEP 6 and FiO2 30%. Continue bronchodilators/nebulizer. Continue Scopolamine and Robinul for secretion control. Trach care/airway management. Mobility protocols for pressure ulcer prophylaxis. LTAC evaluation per case management 03/25/2020. Pulmonary to proceed with T-piece trials today. Continue bronchodilators/nebulizer. Continue Scopolamine and Robinul for secretion control. Trach care/airway management. Mobility protocols for pressure ulcer prophylaxis. 03/26/2020. Patient currently with PSV 10/6 at FiO2 of 30%. Continue weaning and T-piece trials per protocol. Continue bronchodilators/nebulizer. Continue Scopolamine and Robinul for secretion control. Trach care/airway management. Mobility protocols for pressure ulcer prophylaxis. Continue tube feeding with aspiration precautions. 03/27/2020. Patient currently with PSV / at FiO2 of 30%. Continue weaning and T-piece trials per protocol. Continue bronchodilators/nebulizer. Continue Scopolamine and Robinul for secretion control. Trach care/airway management. Mobility protocols for pressure ulcer prophylaxis. Continue tube feeding with aspiration precautions. 03/28. Had temp 100.7F. He has been off antibiotics. Will send blood culture, ua, urine culture and chest xray. Had chest pain overnight and trop was elevated as well. Cardiology to evaluate 03/29. Has back pain due to position. He mentions his chest pain is positional. Has no other complaints. Still on mechanical ventilation 03/30. No chest pain today. Labs reviewed. Discussed chest pain with cardiology and team advised no further work up at this time. Can follow up with cardiology in the office after hospitalization 03/31. Lidocaine patch for lower back pain. 04/01. Discharge planning underway. CM notes reviewed. Discussed with daughter 04/02 - . CM trying to arrange discharge. Continue PSV trials. Discussed with patients significant other 04/04/2020; CM is working for discharge arrangement. Continue PSV trials. 04/05/2020; patient was seen and evaluated this morning and no change from baseline. Continue with PSV trials. Follow with airport ramp supervisor for discharge planning. 04/06/2020;patient was seen and evaluated this morning and no change from magdaleno herrera. Continue with PSV trials. Follow with airport ramp supervisor for discharge planning. 04/07/2020; patient was seen and evaluated this morning and no change from baseline. Continue with PSV trials. Follow with airport ramp supervisor for discharge planning. 04/08/2020; patient is vent dependent. Discharge is per airport ramp supervisor. 04/09/2020 patient is vent dependent, possible LTAC placement 04/10/2020; tracheostomy on vent, vent dependent pending LTAC placement 04/11/2020; clinically no change, tracheostomy on ventilatory support, wean as tolerated, awaiting placement 04/12/2020; remains on ventilatory support, unable to wean, patient wants to see a speech therapist for sound box However we cannot try that as long as he is on ventilatory support, once he is weaned off vent We will consult speech therapist, plan of care reviewed with the patient and his nurse 04/14/2020; clinically no change, on ventilatory support, complains of constipation, milk of magnesia Closely monitor the patient and adjust the management as needed 04/15/2020; patient has some oral thrush on the tongue, will give Magic mouthwash/nystatin swish and spit Wean off vent as tolerated 04/16 patient is alert and oriented, unable to comprehend what he is trying to tell but appears to complain of some pain, no acute events overnight, all interdisciplinary notes reviewed. Waiting for LTAC versus nursing home facility placement 04/17/2020. Continue supportive care with mechanical ventilation. Patient currently on AC mode rate 10, tidal volume 400 FiO2 30% with a PEEP of 6. Discharge planning per case management. 04/18/2020. Patient remains on mechanical ventilation AC mode rate 10, tidal volume 400, FiO2 30% and PEEP of 6. Continue spontaneous breathing trials as tolerated. Previously, patient was considered for discharge home with skilled staff providing care for 12 hours 7 days/week. Continue discussed with case management discharge planning. 04/19/20. Patient remains on mechanical ventilation AC mode rate 10, tidal volume 400, FiO2 30% and PEEP of 6. Continue spontaneous breathing trials as tolerated. 04/20/2020. Patient remains on mechanical ventilation AC mode rate 10, tidal volume 400, FiO2 30% and PEEP of 6. Continue spontaneous breathing trials as tolerated. 04/21/2020. Patient remains on mechanical ventilation AC mode rate 10, tidal volume 400, FiO2 30% and PEEP of 6. Continue tracheostomy care, secretion control and airway management. Continue spontaneous breathing trials as tolerated. 04/22/2020. Patient remains on mechanical ventilation AC mode rate 10, tidal v olume 400, FiO2 30% and PEEP of 6. Continue tracheostomy care, secretion control and airway management. Continue spontaneous breathing trials as tolerated. 04/23/2020. Patient on mechanical ventilation AC mode rate 18, tidal volume 450, FiO2 30% and PEEP of 6. Continue tracheostomy care, secretion control and airway management. Continue spontaneous breathing trials as tolerated. Continue Robinul and scopolamine for secretions. Continue baclofen. 04/24/2020. Patient remains on AC mode ventilation rate 10, tidal volume 400, FiO2 30% and PEEP of 6. Continue tracheostomy care, secretion control and airway management. Continue spontaneous breathing trials as tolerated. Continue Robinul and scopolamine for secretions. Continue baclofen. Continue Xanax for anxiety and Ambien for sleep. Await case management follow-up with regards to discharge planning. 04/25/2020. Patient remains on AC mode ventilation rate 10, tidal volume 400, FiO2 30% and PEEP of 6. Continue tracheostomy care, secretion control and airway management. Continue spontaneous breathing trials as tolerated. Continue Robinul and scopolamine for secretions. Continue baclofen. Continue Xanax for anxiety and Ambien for sleep. Await case management follow-up with regards to discharge planning. 04/26. Patient remains on AC mode ventilation rate 10, tidal volume 400, FiO2 30% and PEEP of 6. Continue tracheostomy care, secretion control and airway management. Continue spontaneous breathing trials as tolerated. Continue Robinul and scopolamine for secretions. Continue baclofen. Continue Xanax for anxiety and Ambien for sleep. Await case management follow-up with regards to discharge planning. 04/27. Patient remains on AC mode ventilation rate 10, tidal volume 400, FiO2 30% and PEEP of 6. Continue tracheostomy care, secretion control and airway management. Continue spontaneous breathing trials as tolerated. Continue Robinul and scopolamine for secretions. Continue baclofen. Continue Xanax for anxiety and Ambien for sleep. Await case management follow-up with regards to discharge [facility]. 04/28/20 no acute events overnight, remains vent dependent, cardiology and pulmonary notes reviewed 04/29 remains intubated via tracheostomy, no acute events 04/30 no acute events overnight, cardiology note reviewed, remains vent dependent, discharge planning per case management Hospitalist Physical Narrative exam: VITAL SIGNS: Reviewed. GENERAL: Awake. Intubated via tracheostomy HEAD: No signs of head trauma. EYES: Pupils are equal. EOMI intact. EARS: Hearing grossly intact. NECK: No adenopathy, no JVD. Tracheostomy CHEST: Coarse breath sounds bilaterally CARDIAC: Regular rate and rhythm. VASCULAR: No Edema. ABDOMEN: Soft, non tender and non distended. Has a functioning PEG tube NEUROLOGIC EXAM: Awake SKIN: No obvious lesions Objective - Constitutional Vitals: Vital Signs - 12hr 01/03/21 01/03/21 01/03/21 00:00 01:00 01:45 Temperature 97.8 F Pulse Rate 96 H 94 H 95 H Respiratory 11 L 12 Rate Blood Pressure 105/68 106/64 O2 Sat by Pulse 100 100 Oximetry 04/30/20 04/30/20 04/30/20 02:00 03:00 03:38 Temperature 97.9 F Pulse Rate 94 H 93 H Respiratory 13 14 Rate Blood Pressure 97/66 106/65 O2 Sat by Pulse 99 100 Oximetry 04/30/20 04/30/20 04/30/20 04:00 04:04 05:00 Temperature Pulse Rate 97 H 108 H 108 H Respiratory 16 16 Rate Blood Pressure 105/68 115/77 O2 Sat by Pulse 100 96 Oximetry 04/30/20 04/30/20 04/30/20 05:23 06:00 06:23 Temperature Pulse Rate 96 H Respiratory 13 10 L 20 Rate Blood Pressure 110/78 O2 Sat by Pulse 97 Oximetry 04/30/20 04/30/20 04/30/20 07:00 07:28 08:00 Temperature Pulse Rate 102 H 98 H Respiratory 15 12 15 Rate Blood Pressure 107/78 104/75 O2 Sat by Pulse 97 98 Oximetry 04/30/20 04/30/20 04/30/20 08:48 09:00 10:53 Temperature Pulse Rate 93 H 93 H 93 H Respiratory 10 L Rate Blood Pressure 104/71 101/71 101/70 O2 Sat by Pulse 98 98 Oximetry - Labs CBC & Chem 7: 04/25/20 06:34 04/25/20 06:34 Labs: Abnormal lab results 04/30/20 Range/Units 00:29 POC Glucose 106 H (70-105) mg/dL HEART Score - HEART Score Troponin: Troponin T 0.181 ng/mL (0.00-0.029) H* 04/24/20 05:28
--- NOTE | 2020-04-30 14:30 | Progress Note ---
Assessment and Plan Patient sleeping at this time. Patient undergoing spontaneous breathing trial, Pressure support 10, FIO2 30%, PEEP 6 and O2 saturation running 98%. Recommend Continue spontaneous breathing trials as tolerated.Respiratory therapy told me, Patient Not tolearing T tube trial that was tried few days ago. Recommend continue try T tube trials.Patient afebrile and has leukocytosis. Chest xray done 04/15/20 reported mild basilar airspace opacities which likely represent atelectasis but could represent an evolving pneumonia. If patient running fever, recommend to place him on antibiotics like zosyn. Repeating chest xray - Patient Problems (1) Acute on chronic respiratory failure with hypoxia and hypercapnia Current Visit: Yes Status: Acute Plan to address problem: Patient is on Pressure support mechanical ventilation, Pressure support 10, FIO2 30%, PEEP 6. Albuterol inhaler 2 puffs po qid. Continue S/C Lovenox. Continue prevacid. Recommend T tube trials as tolerated. (2) Bleeding from wound Current Visit: Yes Status: Acute Plan to address problem: Management primary care , surgery and wound care. (3) Elevated d-dimer Current Visit: Yes Status: Acute Plan to address problem: Patients venous doppler studies of legs, CTA chest reported Negative for VTE. Patient is on S/C Lovenox 40 mg qd. (4) Elevated troponin Current Visit: Yes Status: Acute Plan to address problem: Management as per primary care and cardiology (5) NSTEMI (non-ST elevated myocardial infarction) Current Visit: Yes Status: Acute Plan to address problem: Management as per cardiology. (6) Pneumonia Current Visit: Yes Status: Acute Qualifiers: Laterality: bilateral Plan to address problem: Patient was treated with ceftriaxone, zosyn and zithromax. Patient afebrile . Has mild leukocytosis. Chest xray done 04/15/20 reported mild basilar airspace opacities which likely represent atelectasis but could represent an evolving pneumonia. If patient running fever, recommend to place him back on antibiotics like zosyn. Repeating chest xray. Subjective Date of service: 04/30/20 Principal diagnosis: Ac on Ch Hypercapnic & hypoxemic Resp Failure; Severe Sepsis; Jamar PNA; ALS Interval history: Patient sleeping at this time. Patient undergoing spontaneous breathing trial, Pressure support 10, FIO2 30%, PEEP 6 and O2 saturation running 98%. Recommend Continue spontaneous breathing trials as tolerated.Respiratory therapy told me, Patient Not tolearing T tube trial that was tried few days ago. Recommend continue try T tube trials.Patient afebrile and has leukocytosis. Chest xray done 04/15/20 reported mild basilar airspace opacities which likely represent atelectasis but could represent an evolving pneumonia. If patient running f ever, recommend to place him on antibiotics like zosyn. Repeating chest xray . Objective Vital Signs - 12hr 04/30/20 04/30/20 04/30/20 03:00 03:38 04:00 Temperature 97.9 F Pulse Rate 93 H 97 H Respiratory 14 16 Rate Blood Pressure 106/65 105/68 O2 Sat by Pulse 100 100 Oximetry 04/30/20 04/30/20 04/30/20 04:04 05:00 05:23 Temperature Pulse Rate 108 H 108 H Respiratory 16 13 Rate Blood Pressure 115/77 O2 Sat by Pulse 96 Oximetry 04/30/20 04/30/20 04/30/20 06:00 06:23 07:00 Temperature Pulse Rate 96 H 102 H Respiratory 10 L 20 15 Rate Blood Pressure 110/78 107/78 O2 Sat by Pulse 97 97 Oximetry 04/30/20 04/30/20 04/30/20 07:28 08:00 08:48 Temperature 97.8 F Pulse Rate 98 H 93 H Respiratory 12 15 Rate Blood Pressure 104/75 104/71 O2 Sat by Pulse 98 98 Oximetry 04/30/20 04/30/20 04/30/20 09:00 10:00 10:53 Temperature Pulse Rate 93 H 90 93 H Respiratory 10 L 12 Rate Blood Pressure 101/71 104/76 101/70 O2 Sat by Pulse 98 100 Oximetry 04/30/20 04/30/20 04/30/20 11:00 11:24 12:00 Temperature 98.3 F Pulse Rate 92 H 102 H 93 H Respiratory 11 L 20 21 Rate Blood Pressure 101/70 101/70 111/79 O2 Sat by Pulse 98 96 97 Oximetry 04/30/20 13:00 Temperature Pulse Rate 88 Respiratory 21 Rate Blood Pressure 110/77 O2 Sat by Pulse 97 Oximetry Constitutional: no acute distress, asleep, other (thin middle aged male with normal respiratory effort at rest on MVS) Eyes: non-icteric ENT: oropharynx moist, other (S/P Tracheostomy) Neck: supple, no lymphadenopathy, no JVD Effort: mildly labored Ascultation: Bilateral: clear, diminished breath sounds, wheezes, rhonchi Percussion: Bilateral: not dull Cardiovascular: regular rate and rhythm, other (S1,S2, no murmurs) Gastrointestinal: normoactive bowel sounds, soft, non-tender, non-distended, other (+ distended but non tender suprapubis) Integumentary: normal, decubitus ulcer (sacral / gluteal) Extremities: no cyanosis, no edema, pulses normal, other (atrophic looking limbs) Neurologic: pupils equal and round, other (motor strength in extremities 1-2/5, awake, alert, mouths words to make needs known) Psychiatric: mood appropriate, affect normal CBC and BMP: 04/25/20 06:34 04/25/20 06:34 ABG, PT/INR, D-dimer: ABG ABG pH 7.371 (7.320-7.450) 03/08/20 12:34 POC ABG pCO2 63.1 mmHg (32.0-48.0) H 03/08/20 12:34 ABG pCO2 60.1 mm Hg 03/06/20 04:34 POC ABG pO2 90.5 mmHg (83-108) 03/08/20 12:34 ABG pO2 88.6 mm Hg (80.0-90.0) 03/06/20 04:34 POC ABG HCO3 35.7 03/08/20 12:34 ABG O2 Saturation 97.0 % (95.0-99.0) 03/06/20 04:34 PT/INR, D-dimer PT 15.6 Sec. (12.2-14.9) H 02/24/20 09:19 INR 1.21 (0.87-1.13) H 02/24/20 09:19 D-Dimer 1311.96 ng/mlDDU (0-234) H 02/24/20 09:19 Abnormal lab findings: Abnormal Labs 02/24/20 02/24/20 02/24/20 09:19 09:19 09:19 WBC 20.2 H RBC 5.05 H Hgb Hct MCV MCH RDW 15.3 H Plt Count Lymph % (Auto) [place] % (Auto) Lymph # (Auto) [place] # (Auto) Seg Neutrophils % Seg Neuts % (Manual) 86.0 H Lymphocytes % (Manual) 1.0 L Monocytes % (Manual) Basophils % (Manual) Seg Neutrophils # Seg Neutrophils # Man 17.4 H Lymphocytes # (Manual) 0.2 L Monocytes # (Manual) Eosinophils # (Manual) Basophils # (Manual) PT 15.6 H INR 1.21 H D-Dimer 1311.96 H ABG pH POC ABG pCO2 POC ABG pO2 ABG pO2 ABG HCO3 ABG O2 Saturation ABG Base Excess ABG Hemoglobin ABG Oxyhemoglobin ABG Potassium ABG Glucose Oxyhemoglobin Carboxyhemoglobin Sodium 135 L Potassium 3.2 L Chloride 92.2 L Carbon Dioxide BUN 6 L Creatinine < 0.2 L Glucose 124 H POC Glucose Calcium Ferritin Total Bilirubin 2.30 H Alkaline Phosphatase 132 H Lactate Dehydrogenase Total Creatine Kinase CK-MB (CK-2) Rel Index Troponin T 0.080 H C-Reactive Protein Total Protein Albumin 3.6 L Prealbumin LDL Cholesterol Direct 41 L HDL Cholesterol Arterial Blood Glucose Arterial Blood Ionized Calcium Urine WBC (Auto) 02/24/20 02/24/20 02/24/20 09:19 09:58 10:01 WBC RBC Hgb Hct MCV MCH RDW Plt Count Lymph % (Auto) [place] % (Auto) Lymph # (Auto) [place] # (Auto) Seg Neutrophils % Seg Neuts % (Manual) Lymphocytes % (Manual) Monocytes % (Manual) Basophils % (Manual) Seg Neutrophils # Seg Neutrophils # Man Lymphocytes # (Manual) Monocytes # (Manual) Eosinophils # (Manual) Basophils # (Manual) PT INR D-Dimer ABG pH 7.176 L* POC ABG pCO2 POC ABG pO2 ABG pO2 91.2 H ABG HCO3 ABG O2 Saturation ABG Base Excess -4.6 L ABG Hemoglobin ABG Oxyhemoglobin ABG Potassium ABG Glucose Oxyhemoglobin 92.6 L Carboxyhemoglobin Sodium Potassium Chloride Carbon Dioxide BUN Creatinine Glucose POC Glucose Calcium Ferritin 1715.0 H Total Bilirubin Alkaline Phosphatase Lactate Dehydrogenase 303 H Total Creatine Kinase CK-MB (CK-2) Rel Index Troponin T C-Reactive Protein 26.10 H Total Protein Albumin Prealbumin LDL Cholesterol Direct HDL Cholesterol Arterial Blood Glucose Arterial Blood Ionized Calcium Urine WBC (Auto) 02/24/20 02/24/20 02/24/20 11:52 13:45 19:35 WBC RBC Hgb Hct MCV MCH RDW Plt Count Lymph % (Auto) [place] % (Auto) Lymph # (Auto) [place] # (Auto) Seg Neutrophils % Seg Neuts % (Manual) Lymphocytes % (Manual) Monocytes % (Manual) Basophils % (Manual) Seg Neutrophils # Seg Neutrophils # Man Lymphocytes # (Manual) Monocytes # (Manual) Eosinophils # (Manual) Basophils # (Manual) PT INR D-Dimer ABG pH 7.051 L* 7.300 L POC ABG pCO2 POC ABG pO2 ABG pO2 94.7 H 75.1 L ABG HCO3 18.0 L ABG O2 Saturation 93.5 L ABG Base Excess -6.8 L -7.8 L ABG Hemoglobin 13.2 L 11.9 L ABG Oxyhemoglobin ABG Potassium ABG Glucose Oxyhemoglobin 91.0 L 92.7 L Carboxyhemoglobin Sodium Potassium Chloride Carbon Dioxide BUN Creatinine Glucose POC Glucose Calcium Ferritin Total Bilirubin Alkaline Phosphatase Lactate Dehydrogenase Total Creatine Kinase CK-MB (CK-2) Rel Index Troponin T 0.034 H D C-Reactive Protein Total Protein Albumin Prealbumin LDL Cholesterol Direct HDL Cholesterol Arterial Blood Glucose Arterial Blood Ionized Calcium Urine WBC (Auto) 02/25/20 02/25/20 02/25/20 04:00 04:00 12:26 WBC 22.9 H RBC Hgb Hct MCV 83 L MCH 27 L RDW Plt Count 468 H Lymph % (Auto) [place] % (Auto) Lymph # (Auto) [place] # (Auto) Seg Neutrophils % Seg Neuts % (Manual) 89.0 H Lymphocytes % (Manual) 7.0 L Monocytes % (Manual) Basophils % (Manual) Seg Neutrophils # Seg Neutrophils # Man 20.4 H Lymphocytes # (Manual) Monocytes # (Manual) Eosinophils # (Manual) Basophils # (Manual) PT INR D-Dimer ABG pH POC ABG pCO2 POC ABG pO2 ABG pO2 ABG HCO3 ABG O2 Saturation ABG Base Excess ABG Hemoglobin ABG Oxyhemoglobin ABG Potassium 2.6 L ABG Glucose 142 H Oxyhemoglobin Carboxyhemoglobin Sodium Potassium 3.2 L Chloride Carbon Dioxide 18 L BUN Creatinine 0.2 L Glucose 114 H POC Glucose Calcium Ferritin Total Bilirubin Alkaline Phosphatase Lactate Dehydrogenase Total Creatine Kinase CK-MB (CK-2) Rel Index Troponin T C-Reactive Protein Total Protein Albumin 3.5 L Prealbumin LDL Cholesterol Direct HDL Cholesterol Arterial Blood Glucose 142 H Arterial Blood Ionized Calcium Urine WBC (Auto) 02/26/20 02/26/20 02/26/20 15:58 17:00 23:43 WBC RBC Hgb Hct MCV MCH RDW Plt Count Lymph % (Auto) [place] % (Auto) Lymph # (Auto) [place] # (Auto) Seg Neutrophils % Seg Neuts % (Manual) Lymphocytes % (Manual) Monocytes % (Manual) Basophils % (Manual) Seg Neutrophils # Seg Neutrophils # Man Lymphocytes # (Manual) Monocytes # (Manual) Eosinophils # (Manual) Basophils # (Manual) PT INR D-Dimer ABG pH 7.502 H POC ABG pCO2 POC ABG pO2 213.6 H ABG pO2 ABG HCO3 ABG O2 Saturation ABG Base Excess ABG Hemoglobin ABG Oxyhemoglobin 99.2 H ABG Potassium 2.9 L ABG Glucose 160 H Oxyhemoglobin Carboxyhemoglobin 0.4 L Sodium Potassium Chloride Carbon Dioxide BUN Creatinine Glucose POC Glucose 189 H 120 H Calcium Ferritin Total Bilirubin Alkaline Phosphatase Lactate Dehydrogenase Total Creatine Kinase CK-MB (CK-2) Rel Index Troponin T C-Reactive Protein Total Protein Albumin Prealbumin LDL Cholesterol Direct HDL Cholesterol Arterial Blood Glucose 160 H Arterial Blood Ionized Calcium 4.5 L Urine WBC (Auto) 02/27/20 02/27/20 02/27/20 05:00 07:04 17:45 WBC RBC Hgb Hct MCV MCH RDW Plt Count Lymph % (Auto) [place] % (Auto) Lymph # (Auto) [place] # (Auto) Seg Neutrophils % Seg Neuts % (Manual) Lymphocytes % (Manual) Monocytes % (Manual) Basophils % (Manual) Seg Neutrophils # Seg Neutrophils # Man Lymphocytes # (Manual) Monocytes # (Manual) Eosinophils # (Manual) Basophils # (Manual) PT INR D-Dimer ABG pH 7.524 H POC ABG pCO2 POC ABG pO2 ABG pO2 ABG HCO3 ABG O2 Saturation ABG Base Excess ABG Hemoglobin ABG Oxyhemoglobin ABG Potassium 3.0 L ABG Glucose 143 H Oxyhemoglobin Carboxyhemoglobin Sodium Potassium Chloride Carbon Dioxide BUN Creatinine Glucose POC Glucose 154 H 175 H Calcium Ferritin Total Bilirubin Alkaline Phosphatase Lactate Dehydrogenase Total Creatine Kinase CK-MB (CK-2) Rel Index Troponin T C-Reactive Protein Total Protein Albumin Prealbumin LDL Cholesterol Direct HDL Cholesterol Arterial Blood Glucose 143 H Arterial Blood Ionized Calcium Urine WBC (Auto) 02/27/20 02/28/20 02/28/20 Unknown 00:21 04:15 WBC 18.7 H RBC Hgb Hct MCV MCH RDW Plt Count Lymph % (Auto) 8.7 L [place] % (Auto) Lymph # (Auto) [place] # (Auto) 1.2 H Seg Neutrophils % 84.6 H Seg Neuts % (Manual) Lymphocytes % (Manual) Monocytes % (Manual) Basophils % (Manual) Seg Neutrophils # 15.9 H Seg Neutrophils # Man Lymphocytes # (Manual) Monocytes # (Manual) Eosinophils # (Manual) Basophils # (Manual) PT INR D-Dimer ABG pH POC ABG pCO2 POC ABG pO2 ABG pO2 ABG HCO3 ABG O2 Saturation ABG Base Excess ABG Hemoglobin ABG Oxyhemoglobin ABG Potassium ABG Glucose Oxyhemoglobin Carboxyhemoglobin Sodium Potassium 2.9 L* Chloride Carbon Dioxide 33 H D BUN Creatinine < 0.2 L Glucose 157 H POC Glucose 134 H Calcium Ferritin Total Bilirubin Alkaline Phosphatase Lactate Dehydrogenase Total Creatine Kinase CK-MB (CK-2) Rel Index Troponin T C-Reactive Protein Total Protein Albumin Prealbumin LDL Cholesterol Direct HDL Cholesterol Arterial Blood Glucose Arterial Blood Ionized Calcium Urine WBC (Auto) 02/28/20 02/28/20 02/28/20 04:15 05:16 05:39 WBC RBC Hgb Hct MCV MCH RDW Plt Count Lymph % (Auto) [place] % (Auto) Lymph # (Auto) [place] # (Auto) Seg Neutrophils % Seg Neuts % (Manual) Lymphocytes % (Manual) Monocytes % (Manual) Basophils % (Manual) Seg Neutrophils # Seg Neutrophils # Man Lymphocytes # (Manual) Monocytes # (Manual) Eosinophils # (Manual) Basophils # (Manual) PT INR D-Dimer ABG pH POC ABG pCO2 POC ABG pO2 ABG pO2 142.9 H ABG HCO3 34.1 H ABG O2 Saturation ABG Base Excess 8.3 H ABG Hemoglobin ABG Oxyhemoglobin ABG Potassium ABG Glucose Oxyhemoglobin Carboxyhemoglobin Sodium 151 H Potassium Chloride Carbon Dioxide 32 H BUN Creatinine 0.2 L Glucose 167 H POC Glucose 138 H Calcium Ferritin Total Bilirubin Alkaline Phosphatase Lactate Dehydrogenase Total Creatine Kinase CK-MB (CK-2) Rel Index Troponin T C-Reactive Protein Total Protein Albumin Prealbumin LDL Cholesterol Direct HDL Cholesterol Arterial Blood Glucose Arterial Blood Ionized Calcium Urine WBC (Auto) 02/28/20 02/28/20 02/28/20 11:05 11:33 12:54 WBC RBC Hgb Hct MCV MCH RDW Plt Count Lymph % (Auto) [place] % (Auto) Lymph # (Auto) [place] # (Auto) Seg Neutrophils % Seg Neuts % (Manual) Lymphocytes % (Manual) Monocytes % (Manual) Basophils % (Manual) Seg Neutrophils # Seg Neutrophils # Man Lymphocytes # (Manual) Monocytes # (Manual) Eosinophils # (Manual) Basophils # (Manual) PT INR D-Dimer ABG pH POC ABG pCO2 POC ABG pO2 ABG pO2 ABG HCO3 ABG O2 Saturation ABG Base Excess ABG Hemoglobin ABG Oxyhemoglobin ABG Potassium ABG Glucose Oxyhemoglobin Carboxyhemoglobin Sodium Potassium Chloride Carbon Dioxide BUN Creatinine Glucose POC Glucose 160 H Calcium Ferritin Total Bilirubin Alkaline Phosphatase Lactate Dehydrogenase Total Creatine Kinase CK-MB (CK-2) Rel Index Troponin T C-Reactive Protein 4.70 H Total Protein Albumin Prealbumin 0.090 L LDL Cholesterol Direct HDL Cholesterol Arterial Blood Glucose Arterial Blood Ionized Calcium Urine WBC (Auto) 02/28/20 02/29/20 02/29/20 17:34 00:44 04:05 WBC 19.6 H RBC Hgb Hct MCV MCH 27 L RDW 15.4 H Plt Count Lymph % (Auto) [place] % (Auto) Lymph # (Auto) [place] # (Auto) Seg Neutrophils % Seg Neuts % (Manual) 86.0 H Lymphocytes % (Manual) 7.0 L Monocytes % (Manual) Basophils % (Manual) Seg Neutrophils # Seg Neutrophils # Man 16.9 H Lymphocytes # (Manual) Monocytes # (Manual) 1.2 H Eosinophils # (Manual) Basophils # (Manual) PT INR D-Dimer ABG pH POC ABG pCO2 POC ABG pO2 ABG pO2 ABG HCO3 ABG O2 Saturation ABG Base Excess ABG Hemoglobin ABG Oxyhemoglobin ABG Potassium ABG Glucose Oxyhemoglobin Carboxyhemoglobin Sodium Potassium Chloride Carbon Dioxide BUN Creatinine Glucose POC Glucose 136 H 156 H Calcium Ferritin Total Bilirubin Alkaline Phosphatase Lactate Dehydrogenase Total Creatine Kinase CK-MB (CK-2) Rel Index Troponin T C-Reactive Protein Total Protein Albumin Prealbumin LDL Cholesterol Direct HDL Cholesterol Arterial Blood Glucose Arterial Blood Ionized Calcium Urine WBC (Auto) 02/29/20 02/29/20 02/29/20 04:05 05:14 05:33 WBC RBC Hgb Hct MCV MCH RDW Plt Count Lymph % (Auto) [place] % (Auto) Lymph # (Auto) [place] # (Auto) Seg Neutrophils % Seg Neuts % (Manual) Lymphocytes % (Manual) Monocytes % (Manual) Basophils % (Manual) Seg Neutrophils # Seg Neutrophils # Man Lymphocytes # (Manual) Monocytes # (Manual) Eosinophils # (Manual) Basophils # (Manual) PT INR D-Dimer ABG pH POC ABG pCO2 54.3 H POC ABG pO2 124.8 H ABG pO2 ABG HCO3 ABG O2 Saturation ABG Base Excess ABG Hemoglobin ABG Oxyhemoglobin ABG Potassium ABG Glucose 185 H Oxyhemoglobin Carboxyhemoglobin Sodium 148 H Potassium Chloride Carbon Dioxide 33 H BUN Creatinine < 0.2 L Glucose 173 H POC Glucose 152 H Calcium Ferritin Total Bilirubin Alkaline Phosphatase Lactate Dehydrogenase Total Creatine Kinase CK-MB (CK-2) Rel Index Troponin T C-Reactive Protein Total Protein Albumin Prealbumin LDL Cholesterol Direct HDL Cholesterol Arterial Blood Glucose 185 H Arterial Blood Ionized Calcium Urine WBC (Auto) 03/01/20 03/01/20 03/01/20 00:00 03:45 04:33 WBC 23.1 H RBC Hgb Hct MCV MCH 27 L RDW 15.3 H Plt Count Lymph % (Auto) [place] % (Auto) Lymph # (Auto) [place] # (Auto) Seg Neutrophils % Seg Neuts % (Manual) 92.0 H Lymphocytes % (Manual) 6.0 L Monocytes % (Manual) Basophils % (Manual) Seg Neutrophils # Seg Neutrophils # Man 21.3 H Lymphocytes # (Manual) Monocytes # (Manual) Eosinophils # (Manual) 0.5 H Basophils # (Manual) PT INR D-Dimer ABG pH 7.492 H POC ABG pCO2 POC ABG pO2 ABG pO2 157.1 H ABG HCO3 32.3 H ABG O2 Saturation ABG Base Excess 8.1 H ABG Hemoglobin 13.2 L ABG Oxyhemoglobin ABG Potassium ABG Glucose Oxyhemoglobin Carboxyhemoglobin Sodium Potassium Chloride Carbon Dioxide BUN Creatinine Glucose POC Glucose 109 H Calcium Ferritin Total Bilirubin Alkaline Phosphatase Lactate Dehydrogenase Total Creatine Kinase CK-MB (CK-2) Rel Index Troponin T C-Reactive Protein Total Protein Albumin Prealbumin LDL Cholesterol Direct HDL Cholesterol Arterial Blood Glucose Arterial Blood Ionized Calcium Urine WBC (Auto) 03/01/20 03/01/20 03/01/20 04:33 05:29 12:32 WBC RBC Hgb Hct MCV MCH RDW Plt Count Lymph % (Auto) [place] % (Auto) Lymph # (Auto) [place] # (Auto) Seg Neutrophils % Seg Neuts % (Manual) Lymphocytes % (Manual) Monocytes % (Manual) Basophils % (Manual) Seg Neutrophils # Seg Neutrophils # Man Lymphocytes # (Manual) Monocytes # (Manual) Eosinophils # (Manual) Basophils # (Manual) PT INR D-Dimer ABG pH POC ABG pCO2 POC ABG pO2 ABG pO2 ABG HCO3 ABG O2 Saturation ABG Base Excess ABG Hemoglobin ABG Oxyhemoglobin ABG Potassium ABG Glucose Oxyhemoglobin Carboxyhemoglobin Sodium 146 H Potassium Chloride Carbon Dioxide 32 H BUN Creatinine < 0.2 L Glucose 120 H POC Glucose 120 H 128 H Calcium Ferritin Total Bilirubin Alkaline Phosphatase Lactate Dehydrogenase Total Creatine Kinase CK-MB (CK-2) Rel Index Troponin T C-Reactive Protein Total Protein Albumin Prealbumin LDL Cholesterol Direct HDL Cholesterol Arterial Blood Glucose Arterial Blood Ionized Calcium Urine WBC (Auto) 03/01/20 03/01/20 03/02/20 17:38 23:46 06:13 WBC RBC Hgb Hct MCV MCH RDW Plt Count Lymph % (Auto) [place] % (Auto) Lymph # (Auto) [place] # (Auto) Seg Neutrophils % Seg Neuts % (Manual) Lymphocytes % (Manual) Monocytes % (Manual) Basophils % (Manual) Seg Neutrophils # Seg Neutrophils # Man Lymphocytes # (Manual) Monocytes # (Manual) Eosinophils # (Manual) Basophils # (Manual) PT INR D-Dimer ABG pH POC ABG pCO2 POC ABG pO2 ABG pO2 ABG HCO3 ABG O2 Saturation ABG Base Excess ABG Hemoglobin ABG Oxyhemoglobin ABG Potassium ABG Glucose Oxyhemoglobin Carboxyhemoglobin Sodium Potassium Chloride Carbon Dioxide BUN Creatinine Glucose POC Glucose 114 H 121 H 120 H Calcium Ferritin Total Bilirubin Alkaline Phosphatase Lactate Dehydrogenase Total Creatine Kinase CK-MB (CK-2) Rel Index Troponin T C-Reactive Protein Total Protein Albumin Prealbumin LDL Cholesterol Direct HDL Cholesterol Arterial Blood Glucose Arterial Blood Ionized Calcium Urine WBC (Auto) 03/02/20 03/02/20 03/03/20 09:47 09:47 10:21 WBC 23.6 H RBC Hgb Hct MCV MCH RDW 15.3 H Plt Count 494 H Lymph % (Auto) [place] % (Auto) Lymph # (Auto) [place] # (Auto) Seg Neutrophils % Seg Neuts % (Manual) 85.0 H Lymphocytes % (Manual) 6.0 L Monocytes % (Manual) Basophils % (Manual) Seg Neutrophils # Seg Neutrophils # Man 20.1 H Lymphocytes # (Manual) Monocytes # (Manual) 1.7 H Eosinophils # (Manual) Basophils # (Manual) PT INR D-Dimer ABG pH POC ABG pCO2 POC ABG pO2 ABG pO2 ABG HCO3 ABG O2 Saturation ABG Base Excess ABG Hemoglobin ABG Oxyhemoglobin ABG Potassium 3.3 L ABG Glucose 158 H Oxyhemoglobin Carboxyhemoglobin Sodium Potassium Chloride Carbon Dioxide BUN Creatinine < 0.2 L Glucose 177 H POC Glucose Calcium Ferritin Total Bilirubin Alkaline Phosphatase Lactate Dehydrogenase Total Creatine Kinase CK-MB (CK-2) Rel Index Troponin T C-Reactive Protein Total Protein Albumin Prealbumin LDL Cholesterol Direct HDL Cholesterol Arterial Blood Glucose 158 H Arterial Blood Ionized Calcium Urine WBC (Auto) 03/03/20 03/04/20 03/04/20 21:30 00:00 12:23 WBC RBC Hgb Hct MCV MCH RDW Plt Count Lymph % (Auto) [place] % (Auto) Lymph # (Auto) [place] # (Auto) Seg Neutrophils % Seg Neuts % (Manual) Lymphocytes % (Manual) Monocytes % (Manual) Basophils % (Manual) Seg Neutrophils # Seg Neutrophils # Man Lymphocytes # (Manual) Monocytes # (Manual) Eosinophils # (Manual) Basophils # (Manual) PT INR D-Dimer ABG pH 7.328 L POC ABG pCO2 POC ABG pO2 ABG pO2 68.4 L ABG HCO3 35.0 H ABG O2 Saturation 93.9 L ABG Base Excess 6.8 H ABG Hemoglobin 12.7 L ABG Oxyhemoglobin ABG Potassium ABG Glucose Oxyhemoglobin 91.9 L Carboxyhemoglobin Sodium Potassium Chloride Carbon Dioxide BUN Creatinine Glucose POC Glucose 187 H 163 H Calcium Ferritin Total Bilirubin Alkaline Phosphatase Lactate Dehydrogenase Total Creatine Kinase CK-MB (CK-2) Rel Index Troponin T C-Reactive Protein Total Protein Albumin Prealbumin LDL Cholesterol Direct HDL Cholesterol Arterial Blood Glucose Arterial Blood Ionized Calcium Urine WBC (Auto) 03/04/20 03/04/20 03/05/20 18:15 21:30 06:02 WBC RBC Hgb Hct MCV MCH RDW Plt Count Lymph % (Auto) [place] % (Auto) Lymph # (Auto) [place] # (Auto) Seg Neutrophils % Seg Neuts % (Manual) Lymphocytes % (Manual) Monocytes % (Manual) Basophils % (Manual) Seg Neutrophils # Seg Neutrophils # Man Lymphocytes # (Manual) Monocytes # (Manual) Eosinophils # (Manual) Basophils # (Manual) PT INR D-Dimer ABG pH 7.297 L POC ABG pCO2 POC ABG pO2 ABG pO2 ABG HCO3 41.0 H ABG O2 Saturation ABG Base Excess 11.0 H ABG Hemoglobin 13.1 L ABG Oxyhemoglobin ABG Potassium ABG Glucose Oxyhemoglobin 94.5 L Carboxyhemoglobin Sodium Potassium Chloride Carbon Dioxide BUN Creatinine Glucose POC Glucose 192 H 127 H Calcium Ferritin Total Bilirubin Alkaline Phosphatase Lactate Dehydrogenase Total Creatine Kinase CK-MB (CK-2) Rel Index Troponin T C-Reactive Protein Total Protein Albumin Prealbumin LDL Cholesterol Direct HDL Cholesterol Arterial Blood Glucose Arterial Blood Ionized Calcium Urine WBC (Auto) 03/05/20 03/05/20 03/06/20 12:09 16:42 00:24 WBC RBC Hgb Hct MCV MCH RDW Plt Count Lymph % (Auto) [place] % (Auto) Lymph # (Auto) [place] # (Auto) Seg Neutrophils % Seg Neuts % (Manual) Lymphocytes % (Manual) Monocytes % (Manual) Basophils % (Manual) Seg Neutrophils # Seg Neutrophils # Man Lymphocytes # (Manual) Monocytes # (Manual) Eosinophils # (Manual) Basophils # (Manual) PT INR D-Dimer ABG pH POC ABG pCO2 POC ABG pO2 ABG pO2 ABG HCO3 ABG O2 Saturation ABG Base Excess ABG Hemoglobin ABG Oxyhemoglobin ABG Potassium ABG Glucose Oxyhemoglobin Carboxyhemoglobin Sodium Potassium Chloride Carbon Dioxide BUN Creatinine Glucose POC Glucose 147 H 114 H 134 H Calcium Ferritin Total Bilirubin Alkaline Phosphatase Lactate Dehydrogenase Total Creatine Kinase CK-MB (CK-2) Rel Index Troponin T C-Reactive Protein Total Protein Albumin Prealbumin LDL Cholesterol Direct HDL Cholesterol Arterial Blood Glucose Arterial Blood Ionized Calcium Urine WBC (Auto) 03/06/20 03/06/20 03/06/20 04:34 05:53 06:08 WBC 25.4 H RBC Hgb 10.5 L Hct 32.7 L MCV MCH 27 L RDW 15.3 H Plt Count 634 H Lymph % (Auto) [place] % (Auto) Lymph # (Auto) [place] # (Auto) Seg Neutrophils % Seg Neuts % (Manual) 88.0 H Lymphocytes % (Manual) 2.0 L Monocytes % (Manual) 8.0 H Basophils % (Manual) Seg Neutrophils # Seg Neutrophils # Man 22.4 H Lymphocytes # (Manual) 0.5 L Monocytes # (Manual) 2.0 H Eosinophils # (Manual) Basophils # (Manual) PT INR D-Dimer ABG pH POC ABG pCO2 POC ABG pO2 ABG pO2 ABG HCO3 37.9 H ABG O2 Saturation ABG Base Excess 11.4 H ABG Hemoglobin 10.6 L ABG Oxyhemoglobin ABG Potassium ABG Glucose Oxyhemoglobin 94.7 L Carboxyhemoglobin Sodium Potassium Chloride Carbon Dioxide BUN Creatinine Glucose POC Glucose 135 H Calcium Ferritin Total Bilirubin Alkaline Phosphatase Lactate Dehydrogenase Total Creatine Kinase CK-MB (CK-2) Rel Index Troponin T C-Reactive Protein Total Protein Albumin Prealbumin LDL Cholesterol Direct HDL Cholesterol Arterial Blood Glucose Arterial Blood Ionized Calcium Urine WBC (Auto) 03/06/20 03/06/20 03/06/20 06:08 12:19 19:10 WBC RBC Hgb Hct MCV MCH RDW Plt Count Lymph % (Auto) [place] % (Auto) Lymph # (Auto) [place] # (Auto) Seg Neutrophils % Seg Neuts % (Manual) Lymphocytes % (Manual) Monocytes % (Manual) Basophils % (Manual) Seg Neutrophils # Seg Neutrophils # Man Lymphocytes # (Manual) Monocytes # (Manual) Eosinophils # (Manual) Basophils # (Manual) PT INR D-Dimer ABG pH POC ABG pCO2 POC ABG pO2 ABG pO2 ABG HCO3 ABG O2 Saturation ABG Base Excess ABG Hemoglobin ABG Oxyhemoglobin ABG Potassium ABG Glucose Oxyhemoglobin Carboxyhemoglobin Sodium 150 H D Potassium Chloride Carbon Dioxide 39 H D BUN 23 H Creatinine < 0.2 L Glucose 144 H POC Glucose 169 H 152 H Calcium Ferritin Total Bilirubin Alkaline Phosphatase Lactate Dehydrogenase Total Creatine Kinase CK-MB (CK-2) Rel Index Troponin T C-Reactive Protein Total Protein Albumin 3.3 L Prealbumin LDL Cholesterol Direct HDL Cholesterol Arterial Blood Glucose Arterial Blood Ionized Calcium Urine WBC (Auto) 03/06/20 03/07/20 03/07/20 23:58 04:25 04:25 WBC 22.1 H RBC Hgb 10.9 L Hct 32.9 L MCV MCH RDW 15.5 H Plt Count 739 H Lymph % (Auto) 7.8 L [place] % (Auto) Lymph # (Auto) [place] # (Auto) 1.3 H Seg Neutrophils % 85.5 H Seg Neuts % (Manual) Lymphocytes % (Manual) Monocytes % (Manual) Basophils % (Manual) Seg Neutrophils # 18.9 H Seg Neutrophils # Man Lymphocytes # (Manual) Monocytes # (Manual) Eosinophils # (Manual) Basophils # (Manual) PT INR D-Dimer ABG pH POC ABG pCO2 POC ABG pO2 ABG pO2 ABG HCO3 ABG O2 Saturation ABG Base Excess ABG Hemoglobin ABG Oxyhemoglobin ABG Potassium ABG Glucose Oxyhemoglobin Carboxyhemoglobin Sodium 146 H Potassium Chloride Carbon Dioxide 37 H BUN Creatinine < 0.2 L Glucose 118 H POC Glucose 111 H Calcium Ferritin Total Bilirubin Alkaline Phosphatase Lactate Dehydrogenase Total Creatine Kinase CK-MB (CK-2) Rel Index Troponin T C-Reactive Protein Total Protein Albumin 3.7 L Prealbumin LDL Cholesterol Direct HDL Cholesterol Arterial Blood Glucose Arterial Blood Ionized Calcium Urine WBC (Auto) 03/07/20 03/07/20 03/07/20 05:20 17:45 23:32 WBC RBC Hgb Hct MCV MCH RDW Plt Count Lymph % (Auto) [place] % (Auto) Lymph # (Auto) [place] # (Auto) Seg Neutrophils % Seg Neuts % (Manual) Lymphocytes % (Manual) Monocytes % (Manual) Basophils % (Manual) Seg Neutrophils # Seg Neutrophils # Man Lymphocytes # (Manual) Monocytes # (Manual) Eosinophils # (Manual) Basophils # (Manual) PT INR D-Dimer ABG pH POC ABG pCO2 POC ABG pO2 ABG pO2 ABG HCO3 ABG O2 Saturation ABG Base Excess ABG Hemoglobin ABG Oxyhemoglobin ABG Potassium ABG Glucose Oxyhemoglobin Carboxyhemoglobin Sodium Potassium Chloride Carbon Dioxide BUN Creatinine Glucose POC Glucose 113 H 124 H 210 H Calcium Ferritin Total Bilirubin Alkaline Phosphatase Lactate Dehydrogenase Total Creatine Kinase CK-MB (CK-2) Rel Index Troponin T C-Reactive Protein Total Protein Albumin Prealbumin LDL Cholesterol Direct HDL Cholesterol Arterial Blood Glucose Arterial Blood Ionized Calcium Urine WBC (Auto) 03/08/20 03/08/20 03/08/20 05:35 06:43 06:43 WBC 28.9 H RBC 3.53 L Hgb 9.7 L Hct 30.3 L MCV MCH RDW 15.6 H Plt Count 578 H Lymph % (Auto) [place] % (Auto) Lymph # (Auto) [place] # (Auto) Seg Neutrophils % Seg Neuts % (Manual) 93.0 H Lymphocytes % (Manual) 4.0 L Monocytes % (Manual) Basophils % (Manual) Seg Neutrophils # Seg Neutrophils # Man 26.9 H Lymphocytes # (Manual) Monocytes # (Manual) Eosinophils # (Manual) Basophils # (Manual) PT INR D-Dimer ABG pH POC ABG pCO2 POC ABG pO2 ABG pO2 ABG HCO3 ABG O2 Saturation ABG Base Excess ABG Hemoglobin ABG Oxyhemoglobin ABG Potassium ABG Glucose Oxyhemoglobin Carboxyhemoglobin Sodium 146 H Potassium Chloride Carbon Dioxide 35 H BUN 34 H Creatinine 0.3 L D Glucose 125 H POC Glucose 147 H Calcium Ferritin Total Bilirubin Alkaline Phosphatase Lactate Dehydrogenase Total Creatine Kinase CK-MB (CK-2) Rel Index Troponin T C-Reactive Protein Total Protein 5.9 L Albumin 3.2 L Prealbumin LDL Cholesterol Direct HDL Cholesterol Arterial Blood Glucose Arterial Blood Ionized Calcium Urine WBC (Auto) 03/08/20 03/08/20 03/08/20 08:57 11:14 12:34 WBC RBC Hgb Hct MCV MCH RDW Plt Count Lymph % (Auto) [place] % (Auto) Lymph # (Auto) [place] # (Auto) Seg Neutrophils % Seg Neuts % (Manual) Lymphocytes % (Manual) Monocytes % (Manual) Basophils % (Manual) Seg Neutrophils # Seg Neutrophils # Man Lymphocytes # (Manual) Monocytes # (Manual) Eosinophils # (Manual) Basophils # (Manual) PT INR D-Dimer ABG pH POC ABG pCO2 63.1 H POC ABG pO2 ABG pO2 ABG HCO3 ABG O2 Saturation ABG Base Excess ABG Hemoglobin 10.9 L ABG Oxyhemoglobin ABG Potassium ABG Glucose 176 H Oxyhemoglobin Carboxyhemoglobin Sodium Potassium Chloride Carbon Dioxide BUN Creatinine Glucose POC Glucose 171 H Calcium Ferritin Total Bilirubin Alkaline Phosphatase Lactate Dehydrogenase Total Creatine Kinase CK-MB (CK-2) Rel Index Troponin T C-Reactive Protein Total Protein Albumin Prealbumin LDL Cholesterol Direct HDL Cholesterol Arterial Blood Glucose 176 H Arterial Blood Ionized Calcium 4.5 L Urine WBC (Auto) 10.0 H 03/08/20 03/08/20 03/09/20 18:02 23:43 05:49 WBC RBC Hgb Hct MCV MCH RDW Plt Count Lymph % (Auto) [place] % (Auto) Lymph # (Auto) [place] # (Auto) Seg Neutrophils % Seg Neuts % (Manual) Lymphocytes % (Manual) Monocytes % (Manual) Basophils % (Manual) Seg Neutrophils # Seg Neutrophils # Man Lymphocytes # (Manual) Monocytes # (Manual) Eosinophils # (Manual) Basophils # (Manual) PT INR D-Dimer ABG pH POC ABG pCO2 POC ABG pO2 ABG pO2 ABG HCO3 ABG O2 Saturation ABG Base Excess ABG Hemoglobin ABG Oxyhemoglobin ABG Potassium ABG Glucose Oxyhemoglobin Carboxyhemoglobin Sodium Potassium Chloride Carbon Dioxide BUN Creatinine Glucose POC Glucose 157 H 134 H 163 H Calcium Ferritin Total Bilirubin Alkaline Phosphatase Lactate Dehydrogenase Total Creatine Kinase CK-MB (CK-2) Rel Index Troponin T C-Reactive Protein Total Protein Albumin Prealbumin LDL Cholesterol Direct HDL Cholesterol Arterial Blood Glucose Arterial Blood Ionized Calcium Urine WBC (Auto) 03/09/20 03/09/20 03/09/20 08:35 08:35 12:11 WBC 23.4 H RBC 3.36 L Hgb 9.3 L Hct 28.8 L MCV MCH RDW 15.9 H Plt Count 521 H Lymph % (Auto) [place] % (Auto) Lymph # (Auto) [place] # (Auto) Seg Neutrophils % Seg Neuts % (Manual) 87.0 H Lymphocytes % (Manual) 4.0 L Monocytes % (Manual) 9.0 H Basophils % (Manual) Seg Neutrophils # Seg Neutrophils # Man 20.4 H Lymphocytes # (Manual) 0.9 L Monocytes # (Manual) 2.1 H Eosinophils # (Manual) Basophils # (Manual) PT INR D-Dimer ABG pH POC ABG pCO2 POC ABG pO2 ABG pO2 ABG HCO3 ABG O2 Saturation ABG Base Excess ABG Hemoglobin ABG Oxyhemoglobin ABG Potassium ABG Glucose Oxyhemoglobin Carboxyhemoglobin Sodium 147 H Potassium Chloride Carbon Dioxide 37 H BUN 63 H Creatinine Glucose 154 H POC Glucose 128 H Calcium Ferritin Total Bilirubin Alkaline Phosphatase Lactate Dehydrogenase Total Creatine Kinase CK-MB (CK-2) Rel Index Troponin T C-Reactive Protein Total Protein Albumin Prealbumin LDL Cholesterol Direct HDL Cholesterol Arterial Blood Glucose Arterial Blood Ionized Calcium Urine WBC (Auto) 03/09/20 03/10/20 03/10/20 17:51 00:25 05:41 WBC RBC Hgb Hct MCV MCH RDW Plt Count Lymph % (Auto) [place] % (Auto) Lymph # (Auto) [place] # (Auto) Seg Neutrophils % Seg Neuts % (Manual) Lymphocytes % (Manual) Monocytes % (Manual) Basophils % (Manual) Seg Neutrophils # Seg Neutrophils # Man Lymphocytes # (Manual) Monocytes # (Manual) Eosinophils # (Manual) Basophils # (Manual) PT INR D-Dimer ABG pH POC ABG pCO2 POC ABG pO2 ABG pO2 ABG HCO3 ABG O2 Saturation ABG Base Excess ABG Hemoglobin ABG Oxyhemoglobin ABG Potassium ABG Glucose Oxyhemoglobin Carboxyhemoglobin Sodium Potassium Chloride Carbon Dioxide BUN Creatinine Glucose POC Glucose 127 H 128 H 153 H Calcium Ferritin Total Bilirubin Alkaline Phosphatase Lactate Dehydrogenase Total Creatine Kinase CK-MB (CK-2) Rel Index Troponin T C-Reactive Protein Total Protein Albumin Prealbumin LDL Cholesterol Direct HDL Cholesterol Arterial Blood Glucose Arterial Blood Ionized Calcium Urine WBC (Auto) 03/10/20 03/10/20 03/10/20 06:14 06:14 12:02 WBC 18.3 H RBC 3.45 L Hgb 9.5 L Hct 29.5 L MCV MCH RDW 16.1 H Plt Count 494 H Lymph % (Auto) [place] % (Auto) Lymph # (Auto) [place] # (Auto) Seg Neutrophils % Seg Neuts % (Manual) 95.0 H Lymphocytes % (Manual) 1.0 L Monocytes % (Manual) Basophils % (Manual) Seg Neutrophils # Seg Neutrophils # Man 17.4 H Lymphocytes # (Manual) 0.2 L Monocytes # (Manual) Eosinophils # (Manual) Basophils # (Manual) PT INR D-Dimer ABG pH POC ABG pCO2 POC ABG pO2 ABG pO2 ABG HCO3 ABG O2 Saturation ABG Base Excess ABG Hemoglobin ABG Oxyhemoglobin ABG Potassium ABG Glucose Oxyhemoglobin Carboxyhemoglobin Sodium 149 H Potassium Chloride Carbon Dioxide 35 H BUN 34 H Creatinine 0.2 L D Glucose 177 H POC Glucose 151 H Calcium Ferritin Total Bilirubin Alkaline Phosphatase Lactate Dehydrogenase Total Creatine Kinase CK-MB (CK-2) Rel Index Troponin T C-Reactive Protein Total Protein Albumin Prealbumin LDL Cholesterol Direct HDL Cholesterol Arterial Blood Glucose Arterial Blood Ionized Calcium Urine WBC (Auto) 03/10/20 03/10/20 03/11/20 17:41 23:53 05:02 WBC RBC Hgb Hct MCV MCH RDW Plt Count Lymph % (Auto) [place] % (Auto) Lymph # (Auto) [place] # (Auto) Seg Neutrophils % Seg Neuts % (Manual) Lymphocytes % (Manual) Monocytes % (Manual) Basophils % (Manual) Seg Neutrophils # Seg Neutrophils # Man Lymphocytes # (Manual) Monocytes # (Manual) Eosinophils # (Manual) Basophils # (Manual) PT INR D-Dimer ABG pH POC ABG pCO2 POC ABG pO2 ABG pO2 ABG HCO3 ABG O2 Saturation ABG Base Excess ABG Hemoglobin ABG Oxyhemoglobin ABG Potassium ABG Glucose Oxyhemoglobin Carboxyhemoglobin Sodium Potassium Chloride Carbon Dioxide BUN Creatinine Glucose POC Glucose 168 H 142 H 146 H Calcium Ferritin Total Bilirubin Alkaline Phosphatase Lactate Dehydrogenase Total Creatine Kinase CK-MB (CK-2) Rel Index Troponin T C-Reactive Protein Total Protein Albumin Prealbumin LDL Cholesterol Direct HDL Cholesterol Arterial Blood Glucose Arterial Blood Ionized Calcium Urine WBC (Auto) 03/11/20 03/11/20 03/11/20 11:30 14:01 14:01 WBC 19.7 H RBC 3.04 L Hgb 8.7 L Hct 25.8 L MCV MCH RDW 15.6 H Plt Count Lymph % (Auto) [place] % (Auto) Lymph # (Auto) [place] # (Auto) Seg Neutrophils % Seg Neuts % (Manual) Lymphocytes % (Manual) Monocytes % (Manual) Basophils % (Manual) Seg Neutrophils # Seg Neutrophils # Man Lymphocytes # (Manual) Monocytes # (Manual) Eosinophils # (Manual) Basophils # (Manual) PT INR D-Dimer ABG pH POC ABG pCO2 POC ABG pO2 ABG pO2 ABG HCO3 ABG O2 Saturation ABG Base Excess ABG Hemoglobin ABG Oxyhemoglobin ABG Potassium ABG Glucose Oxyhemoglobin Carboxyhemoglobin Sodium 151 H Potassium Chloride Carbon Dioxide 37 H BUN Creatinine < 0.2 L Glucose 171 H POC Glucose 248 H Calcium Ferritin Total Bilirubin Alkaline Phosphatase Lactate Dehydrogenase Total Creatine Kinase CK-MB (CK-2) Rel Index Troponin T C-Reactive Protein Total Protein Albumin Prealbumin LDL Cholesterol Direct HDL Cholesterol Arterial Blood Glucose Arterial Blood Ionized Calcium Urine WBC (Auto) 03/11/20 03/11/20 03/12/20 17:09 23:52 04:39 WBC 19.9 H RBC 3.16 L Hgb 8.9 L Hct 27.5 L MCV MCH RDW 15.7 H Plt Count Lymph % (Auto) 6.8 L [place] % (Auto) Lymph # (Auto) [place] # (Auto) 1.2 H Seg Neutrophils % 86.0 H Seg Neuts % (Manual) Lymphocytes % (Manual) Monocytes % (Manual) Basophils % (Manual) Seg Neutrophils # 17.1 H Seg Neutrophils # Man Lymphocytes # (Manual) Monocytes # (Manual) Eosinophils # (Manual) Basophils # (Manual) PT INR D-Dimer ABG pH POC ABG pCO2 POC ABG pO2 ABG pO2 ABG HCO3 ABG O2 Saturation ABG Base Excess ABG Hemoglobin ABG Oxyhemoglobin ABG Potassium ABG Glucose Oxyhemoglobin Carboxyhemoglobin Sodium Potassium Chloride Carbon Dioxide BUN Creatinine Glucose POC Glucose 124 H 131 H Calcium Ferritin Total Bilirubin Alkaline Phosphatase Lactate Dehydrogenase Total Creatine Kinase CK-MB (CK-2) Rel Index Troponin T C-Reactive Protein Total Protein Albumin Prealbumin LDL Cholesterol Direct HDL Cholesterol Arterial Blood Glucose Arterial Blood Ionized Calcium Urine WBC (Auto) 03/12/20 03/12/20 03/12/20 04:39 05:28 11:34 WBC RBC Hgb Hct MCV MCH RDW Plt Count Lymph % (Auto) [place] % (Auto) Lymph # (Auto) [place] # (Auto) Seg Neutrophils % Seg Neuts % (Manual) Lymphocytes % (Manual) Monocytes % (Manual) Basophils % (Manual) Seg Neutrophils # Seg Neutrophils # Man Lymphocytes # (Manual) Monocytes # (Manual) Eosinophils # (Manual) Basophils # (Manual) PT INR D-Dimer ABG pH POC ABG pCO2 POC ABG pO2 ABG pO2 ABG HCO3 ABG O2 Saturation ABG Base Excess ABG Hemoglobin ABG Oxyhemoglobin ABG Potassium ABG Glucose Oxyhemoglobin Carboxyhemoglobin Sodium 147 H Potassium Chloride Carbon Dioxide 40 H BUN Creatinine < 0.2 L Glucose 175 H POC Glucose 167 H 144 H Calcium Ferritin Total Bilirubin Alkaline Phosphatase Lactate Dehydrogenase Total Creatine Kinase CK-MB (CK-2) Rel Index Troponin T C-Reactive Protein Total Protein Albumin Prealbumin LDL Cholesterol Direct HDL Cholesterol Arterial Blood Glucose Arterial Blood Ionized Calcium Urine WBC (Auto) 03/12/20 03/12/20 03/13/20 17:32 23:57 05:57 WBC RBC Hgb Hct MCV MCH RDW Plt Count Lymph % (Auto) [place] % (Auto) Lymph # (Auto) [place] # (Auto) Seg Neutrophils % Seg Neuts % (Manual) Lymphocytes % (Manual) Monocytes % (Manual) Basophils % (Manual) Seg Neutrophils # Seg Neutrophils # Man Lymphocytes # (Manual) Monocytes # (Manual) Eosinophils # (Manual) Basophils # (Manual) PT INR D-Dimer ABG pH POC ABG pCO2 POC ABG pO2 ABG pO2 ABG HCO3 ABG O2 Saturation ABG Base Excess ABG Hemoglobin ABG Oxyhemoglobin ABG Potassium ABG Glucose Oxyhemoglobin Carboxyhemoglobin Sodium Potassium Chloride Carbon Dioxide BUN Creatinine Glucose POC Glucose 141 H 137 H 161 H Calcium Ferritin Total Bilirubin Alkaline Phosphatase Lactate Dehydrogenase Total Creatine Kinase CK-MB (CK-2) Rel Index Troponin T C-Reactive Protein Total Protein Albumin Prealbumin LDL Cholesterol Direct HDL Cholesterol Arterial Blood Glucose Arterial Blood Ionized Calcium Urine WBC (Auto) 03/13/20 03/13/20 03/13/20 12:28 14:14 18:39 WBC RBC Hgb Hct MCV MCH RDW Plt Count Lymph % (Auto) [place] % (Auto) Lymph # (Auto) [place] # (Auto) Seg Neutrophils % Seg Neuts % (Manual) Lymphocytes % (Manual) Monocytes % (Manual) Basophils % (Manual) Seg Neutrophils # Seg Neutrophils # Man Lymphocytes # (Manual) Monocytes # (Manual) Eosinophils # (Manual) Basophils # (Manual) PT INR D-Dimer ABG pH POC ABG pCO2 POC ABG pO2 ABG pO2 ABG HCO3 ABG O2 Saturation ABG Base Excess ABG Hemoglobin ABG Oxyhemoglobin ABG Potassium ABG Glucose Oxyhemoglobin Carboxyhemoglobin Sodium Potassium Chloride Carbon Dioxide 39 H BUN Creatinine < 0.2 L Glucose 129 H POC Glucose 130 H 125 H Calcium Ferritin Total Bilirubin Alkaline Phosphatase Lactate Dehydrogenase Total Creatine Kinase CK-MB (CK-2) Rel Index Troponin T C-Reactive Protein Total Protein Albumin Prealbumin LDL Cholesterol Direct HDL Cholesterol Arterial Blood Glucose Arterial Blood Ionized Calcium Urine WBC (Auto) 03/13/20 03/14/20 03/14/20 23:33 05:24 08:07 WBC 16.8 H RBC 2.81 L Hgb 7.9 L Hct 23.9 L MCV MCH RDW 15.9 H Plt Count Lymph % (Auto) [place] % (Auto) Lymph # (Auto) [place] # (Auto) Seg Neutrophils % Seg Neuts % (Manual) 84.0 H Lymphocytes % (Manual) 10.0 L Monocytes % (Manual) Basophils % (Manual) Seg Neutrophils # Seg Neutrophils # Man 14.1 H Lymphocytes # (Manual) Monocytes # (Manual) Eosinophils # (Manual) Basophils # (Manual) PT INR D-Dimer ABG pH POC ABG pCO2 POC ABG pO2 ABG pO2 ABG HCO3 ABG O2 Saturation ABG Base Excess ABG Hemoglobin ABG Oxyhemoglobin ABG Potassium ABG Glucose Oxyhemoglobin Carboxyhemoglobin Sodium Potassium Chloride Carbon Dioxide BUN Creatinine Glucose POC Glucose 146 H 125 H Calcium Ferritin Total Bilirubin Alkaline Phosphatase Lactate Dehydrogenase Total Creatine Kinase CK-MB (CK-2) Rel Index Troponin T C-Reactive Protein Total Protein Albumin Prealbumin LDL Cholesterol Direct HDL Cholesterol Arterial Blood Glucose Arterial Blood Ionized Calcium Urine WBC (Auto) 03/14/20 03/14/20 03/14/20 08:07 12:21 18:26 WBC RBC Hgb Hct MCV MCH RDW Plt Count Lymph % (Auto) [place] % (Auto) Lymph # (Auto) [place] # (Auto) Seg Neutrophils % Seg Neuts % (Manual) Lymphocytes % (Manual) Monocytes % (Manual) Basophils % (Manual) Seg Neutrophils # Seg Neutrophils # Man Lymphocytes # (Manual) Monocytes # (Manual) Eosinophils # (Manual) Basophils # (Manual) PT INR D-Dimer ABG pH POC ABG pCO2 POC ABG pO2 ABG pO2 ABG HCO3 ABG O2 Saturation ABG Base Excess ABG Hemoglobin ABG Oxyhemoglobin ABG Potassium ABG Glucose Oxyhemoglobin Carboxyhemoglobin Sodium Potassium Chloride 97.0 L Carbon Dioxide 37 H BUN Creatinine < 0.2 L Glucose 129 H POC Glucose 109 H 142 H Calcium 8.3 L Ferritin Total Bilirubin Alkaline Phosphatase Lactate Dehydrogenase Total Creatine Kinase CK-MB (CK-2) Rel Index Troponin T C-Reactive Protein Total Protein Albumin Prealbumin LDL Cholesterol Direct HDL Cholesterol Arterial Blood Glucose Arterial Blood Ionized Calcium Urine WBC (Auto) 03/14/20 03/15/20 03/15/20 23:57 05:46 08:06 WBC 19.7 H RBC 3.29 L Hgb 9.1 L Hct 28.0 L MCV MCH RDW 15.9 H Plt Count Lymph % (Auto) [place] % (Auto) Lymph # (Auto) [place] # (Auto) Seg Neutrophils % Seg Neuts % (Manual) Lymphocytes % (Manual) Monocytes % (Manual) Basophils % (Manual) Seg Neutrophils # Seg Neutrophils # Man Lymphocytes # (Manual) Monocytes # (Manual) Eosinophils # (Manual) Basophils # (Manual) PT INR D-Dimer ABG pH POC ABG pCO2 POC ABG pO2 ABG pO2 ABG HCO3 ABG O2 Saturation ABG Base Excess ABG Hemoglobin ABG Oxyhemoglobin ABG Potassium ABG Glucose Oxyhemoglobin Carboxyhemoglobin Sodium Potassium Chloride Carbon Dioxide BUN Creatinine Glucose POC Glucose 157 H 118 H Calcium Ferritin Total Bilirubin Alkaline Phosphatase Lactate Dehydrogenase Total Creatine Kinase CK-MB (CK-2) Rel Index Troponin T C-Reactive Protein Total Protein Albumin Prealbumin LDL Cholesterol Direct HDL Cholesterol Arterial Blood Glucose Arterial Blood Ionized Calcium Urine WBC (Auto) 03/15/20 03/15/20 03/15/20 08:06 12:44 18:09 WBC RBC Hgb Hct MCV MCH RDW Plt Count Lymph % (Auto) [place] % (Auto) Lymph # (Auto) [place] # (Auto) Seg Neutrophils % Seg Neuts % (Manual) Lymphocytes % (Manual) Monocytes % (Manual) Basophils % (Manual) Seg Neutrophils # Seg Neutrophils # Man Lymphocytes # (Manual) Monocytes # (Manual) Eosinophils # (Manual) Basophils # (Manual) PT INR D-Dimer ABG pH POC ABG pCO2 POC ABG pO2 ABG pO2 ABG HCO3 ABG O2 Saturation ABG Base Excess ABG Hemoglobin ABG Oxyhemoglobin ABG Potassium ABG Glucose Oxyhemoglobin Carboxyhemoglobin Sodium 136 L Potassium Chloride 93.6 L Carbon Dioxide 37 H BUN Creatinine < 0.2 L Glucose 132 H POC Glucose 151 H 164 H Calcium Ferritin Total Bilirubin Alkaline Phosphatase Lactate Dehydrogenase Total Creatine Kinase CK-MB (CK-2) Rel Index Troponin T C-Reactive Protein Total Protein Albumin Prealbumin LDL Cholesterol Direct HDL Cholesterol Arterial Blood Glucose Arterial Blood Ionized Calcium Urine WBC (Auto) 03/15/20 03/16/20 03/16/20 23:26 05:39 11:58 WBC RBC Hgb Hct MCV MCH RDW Plt Count Lymph % (Auto) [place] % (Auto) Lymph # (Auto) [place] # (Auto) Seg Neutrophils % Seg Neuts % (Manual) Lymphocytes % (Manual) Monocytes % (Manual) Basophils % (Manual) Seg Neutrophils # Seg Neutrophils # Man Lymphocytes # (Manual) Monocytes # (Manual) Eosinophils # (Manual) Basophils # (Manual) PT INR D-Dimer ABG pH POC ABG pCO2 POC ABG pO2 ABG pO2 ABG HCO3 ABG O2 Saturation ABG Base Excess ABG Hemoglobin ABG Oxyhemoglobin ABG Potassium ABG Glucose Oxyhemoglobin Carboxyhemoglobin Sodium Potassium Chloride Carbon Dioxide BUN Creatinine Glucose POC Glucose 136 H 116 H 109 H Calcium Ferritin Total Bilirubin Alkaline Phosphatase Lactate Dehydrogenase Total Creatine Kinase CK-MB (CK-2) Rel Index Troponin T C-Reactive Protein Total Protein Albumin Prealbumin LDL Cholesterol Direct HDL Cholesterol Arterial Blood Glucose Arterial Blood Ionized Calcium Urine WBC (Auto) 03/16/20 03/17/20 03/17/20 23:56 04:40 04:40 WBC 18.0 H RBC 3.33 L Hgb 9.5 L Hct 28.8 L MCV MCH RDW 16.4 H Plt Count 499 H Lymph % (Auto) [place] % (Auto) Lymph # (Auto) [place] # (Auto) Seg Neutrophils % Seg Neuts % (Manual) 82.0 H Lymphocytes % (Manual) 8.0 L Monocytes % (Manual) Basophils % (Manual) Seg Neutrophils # Seg Neutrophils # Man 14.8 H Lymphocytes # (Manual) Monocytes # (Manual) 1.3 H Eosinophils # (Manual) Basophils # (Manual) 0.2 H PT INR D-Dimer ABG pH POC ABG pCO2 POC ABG pO2 ABG pO2 ABG HCO3 ABG O2 Saturation ABG Base Excess ABG Hemoglobin ABG Oxyhemoglobin ABG Potassium ABG Glucose Oxyhemoglobin Carboxyhemoglobin Sodium Potassium Chloride 97.7 L Carbon Dioxide 32 H BUN Creatinine < 0.2 L Glucose 114 H POC Glucose 131 H Calcium Ferritin Total Bilirubin Alkaline Phosphatase Lactate Dehydrogenase Total Creatine Kinase CK-MB (CK-2) Rel Index Troponin T C-Reactive Protein Total Protein Albumin Prealbumin LDL Cholesterol Direct HDL Cholesterol Arterial Blood Glucose Arterial Blood Ionized Calcium Urine WBC (Auto) 03/18/20 03/18/20 03/18/20 00:21 05:21 11:55 WBC RBC Hgb Hct MCV MCH RDW Plt Count Lymph % (Auto) [place] % (Auto) Lymph # (Auto) [place] # (Auto) Seg Neutrophils % Seg Neuts % (Manual) Lymphocytes % (Manual) Monocytes % (Manual) Basophils % (Manual) Seg Neutrophils # Seg Neutrophils # Man Lymphocytes # (Manual) Monocytes # (Manual) Eosinophils # (Manual) Basophils # (Manual) PT INR D-Dimer ABG pH POC ABG pCO2 POC ABG pO2 ABG pO2 ABG HCO3 ABG O2 Saturation ABG Base Excess ABG Hemoglobin ABG Oxyhemoglobin ABG Potassium ABG Glucose Oxyhemoglobin Carboxyhemoglobin Sodium Potassium Chloride Carbon Dioxide BUN Creatinine Glucose POC Glucose 124 H 138 H 119 H Calcium Ferritin Total Bilirubin Alkaline Phosphatase Lactate Dehydrogenase Total Creatine Kinase CK-MB (CK-2) Rel Index Troponin T C-Reactive Protein Total Protein Albumin Prealbumin LDL Cholesterol Direct HDL Cholesterol Arterial Blood Glucose Arterial Blood Ionized Calcium Urine WBC (Auto) 03/18/20 03/18/20 03/19/20 17:03 23:58 05:24 WBC RBC Hgb Hct MCV MCH RDW Plt Count Lymph % (Auto) [place] % (Auto) Lymph # (Auto) [place] # (Auto) Seg Neutrophils % Seg Neuts % (Manual) Lymphocytes % (Manual) Monocytes % (Manual) Basophils % (Manual) Seg Neutrophils # Seg Neutrophils # Man Lymphocytes # (Manual) Monocytes # (Manual) Eosinophils # (Manual) Basophils # (Manual) PT INR D-Dimer ABG pH POC ABG pCO2 POC ABG pO2 ABG pO2 ABG HCO3 ABG O2 Saturation ABG Base Excess ABG Hemoglobin ABG Oxyhemoglobin ABG Potassium ABG Glucose Oxyhemoglobin Carboxyhemoglobin Sodium Potassium Chloride Carbon Dioxide BUN Creatinine Glucose POC Glucose 128 H 128 H 115 H Calcium Ferritin Total Bilirubin Alkaline Phosphatase Lactate Dehydrogenase Total Creatine Kinase CK-MB (CK-2) Rel Index Troponin T C-Reactive Protein Total Protein Albumin Prealbumin LDL Cholesterol Direct HDL Cholesterol Arterial Blood Glucose Arterial Blood Ionized Calcium Urine WBC (Auto) 03/19/20 03/19/20 03/19/20 08:05 08:05 11:56 WBC 16.8 H RBC 3.36 L Hgb 9.4 L Hct 28.8 L MCV MCH RDW 17.4 H Plt Count 567 H Lymph % (Auto) 7.8 L [place] % (Auto) Lymph # (Auto) [place] # (Auto) 1.2 H Seg Neutrophils % 83.5 H Seg Neuts % (Manual) Lymphocytes % (Manual) Monocytes % (Manual) Basophils % (Manual) Seg Neutrophils # 14.1 H Seg Neutrophils # Man Lymphocytes # (Manual) Monocytes # (Manual) Eosinophils # (Manual) Basophils # (Manual) PT INR D-Dimer ABG pH POC ABG pCO2 POC ABG pO2 ABG pO2 ABG HCO3 ABG O2 Saturation ABG Base Excess ABG Hemoglobin ABG Oxyhemoglobin ABG Potassium ABG Glucose Oxyhemoglobin Carboxyhemoglobin Sodium Potassium Chloride Carbon Dioxide 36 H BUN Creatinine < 0.2 L Glucose 135 H POC Glucose 128 H Calcium Ferritin Total Bilirubin Alkaline Phosphatase Lactate Dehydrogenase Total Creatine Kinase CK-MB (CK-2) Rel Index Troponin T C-Reactive Protein Total Protein Albumin Prealbumin LDL Cholesterol Direct HDL Cholesterol Arterial Blood Glucose Arterial Blood Ionized Calcium Urine WBC (Auto) 03/19/20 03/20/20 03/20/20 23:59 05:12 16:52 WBC RBC Hgb Hct MCV MCH RDW Plt Count Lymph % (Auto) [place] % (Auto) Lymph # (Auto) [place] # (Auto) Seg Neutrophils % Seg Neuts % (Manual) Lymphocytes % (Manual) Monocytes % (Manual) Basophils % (Manual) Seg Neutrophils # Seg Neutrophils # Man Lymphocytes # (Manual) Monocytes # (Manual) Eosinophils # (Manual) Basophils # (Manual) PT INR D-Dimer ABG pH POC ABG pCO2 POC ABG pO2 ABG pO2 ABG HCO3 ABG O2 Saturation ABG Base Excess ABG Hemoglobin ABG Oxyhemoglobin ABG Potassium ABG Glucose Oxyhemoglobin Carboxyhemoglobin Sodium Potassium Chloride Carbon Dioxide BUN Creatinine Glucose POC Glucose 120 H 131 H 124 H Calcium Ferritin Total Bilirubin Alkaline Phosphatase Lactate Dehydrogenase Total Creatine Kinase CK-MB (CK-2) Rel Index Troponin T C-Reactive Protein Total Protein Albumin Prealbumin LDL Cholesterol Direct HDL Cholesterol Arterial Blood Glucose Arterial Blood Ionized Calcium Urine WBC (Auto) 03/20/20 03/21/20 03/21/20 23:35 04:50 07:35 WBC 15.2 H RBC 3.39 L Hgb 9.4 L Hct 29.4 L MCV MCH RDW 17.6 H Plt Count 518 H Lymph % (Auto) [place] % (Auto) Lymph # (Auto) [place] # (Auto) Seg Neutrophils % Seg Neuts % (Manual) 83.0 H Lymphocytes % (Manual) 10.0 L Monocytes % (Manual) Basophils % (Manual) 2.0 H Seg Neutrophils # Seg Neutrophils # Man 12.6 H Lymphocytes # (Manual) Monocytes # (Manual) Eosinophils # (Manual) Basophils # (Manual) 0.3 H PT INR D-Dimer ABG pH POC ABG pCO2 POC ABG pO2 ABG pO2 ABG HCO3 ABG O2 Saturation ABG Base Excess ABG Hemoglobin ABG Oxyhemoglobin ABG Potassium ABG Glucose Oxyhemoglobin Carboxyhemoglobin Sodium Potassium Chloride Carbon Dioxide BUN Creatinine Glucose POC Glucose 125 H 127 H Calcium Ferritin Total Bilirubin Alkaline Phosphatase Lactate Dehydrogenase Total Creatine Kinase CK-MB (CK-2) Rel Index Troponin T C-Reactive Protein Total Protein Albumin Prealbumin LDL Cholesterol Direct HDL Cholesterol Arterial Blood Glucose Arterial Blood Ionized Calcium Urine WBC (Auto) 03/21/20 03/21/20 03/21/20 07:35 11:45 17:22 WBC RBC Hgb Hct MCV MCH RDW Plt Count Lymph % (Auto) [place] % (Auto) Lymph # (Auto) [place] # (Auto) Seg Neutrophils % Seg Neuts % (Manual) Lymphocytes % (Manual) Monocytes % (Manual) Basophils % (Manual) Seg Neutrophils # Seg Neutrophils # Man Lymphocytes # (Manual) Monocytes # (Manual) Eosinophils # (Manual) Basophils # (Manual) PT INR D-Dimer ABG pH POC ABG pCO2 POC ABG pO2 ABG pO2 ABG HCO3 ABG O2 Saturation ABG Base Excess ABG Hemoglobin ABG Oxyhemoglobin ABG Potassium ABG Glucose Oxyhemoglobin Carboxyhemoglobin Sodium 136 L Potassium Chloride 97.7 L Carbon Dioxide 32 H BUN Creatinine < 0.2 L Glucose 103 H POC Glucose 126 H 120 H Calcium Ferritin Total Bilirubin Alkaline Phosphatase Lactate Dehydrogenase Total Creatine Kinase CK-MB (CK-2) Rel Index Troponin T C-Reactive Protein Total Protein Albumin Prealbumin LDL Cholesterol Direct HDL Cholesterol Arterial Blood Glucose Arterial Blood Ionized Calcium Urine WBC (Auto) 03/22/20 03/22/20 03/22/20 05:09 06:34 06:34 WBC 17.5 H RBC 3.52 L Hgb 10.0 L Hct 30.7 L MCV MCH RDW 17.5 H Plt Count 499 H Lymph % (Auto) [place] % (Auto) Lymph # (Auto) [place] # (Auto) Seg Neutrophils % Seg Neuts % (Manual) 80.0 H Lymphocytes % (Manual) 10.0 L Monocytes % (Manual) Basophils % (Manual) Seg Neutrophils # Seg Neutrophils # Man 14.0 H Lymphocytes # (Manual) Monocytes # (Manual) Eosinophils # (Manual) Basophils # (Manual) PT INR D-Dimer ABG pH POC ABG pCO2 POC ABG pO2 ABG pO2 ABG HCO3 ABG O2 Saturation ABG Base Excess ABG Hemoglobin ABG Oxyhemoglobin ABG Potassium ABG Glucose Oxyhemoglobin Carboxyhemoglobin Sodium Potassium Chloride 96.6 L Carbon Dioxide 38 H BUN Creatinine < 0.2 L Glucose 139 H POC Glucose 125 H Calcium Ferritin Total Bilirubin Alkaline Phosphatase Lactate Dehydrogenase Total Creatine Kinase CK-MB (CK-2) Rel Index Troponin T C-Reactive Protein Total Protein Albumin Prealbumin LDL Cholesterol Direct HDL Cholesterol Arterial Blood Glucose Arterial Blood Ionized Calcium Urine WBC (Auto) 03/22/20 03/22/20 03/22/20 11:45 18:00 23:32 WBC RBC Hgb Hct MCV MCH RDW Plt Count Lymph % (Auto) [place] % (Auto) Lymph # (Auto) [place] # (Auto) Seg Neutrophils % Seg Neuts % (Manual) Lymphocytes % (Manual) Monocytes % (Manual) Basophils % (Manual) Seg Neutrophils # Seg Neutrophils # Man Lymphocytes # (Manual) Monocytes # (Manual) Eosinophils # (Manual) Basophils # (Manual) PT INR D-Dimer ABG pH POC ABG pCO2 POC ABG pO2 ABG pO2 ABG HCO3 ABG O2 Saturation ABG Base Excess ABG Hemoglobin ABG Oxyhemoglobin ABG Potassium ABG Glucose Oxyhemoglobin Carboxyhemoglobin Sodium Potassium Chloride Carbon Dioxide BUN Creatinine Glucose POC Glucose 135 H 133 H Calcium Ferritin Total Bilirubin Alkaline Phosphatase Lactate Dehydrogenase Total Creatine Kinase CK-MB (CK-2) Rel Index Troponin T 0.113 H* C-Reactive Protein Total Protein Albumin Prealbumin LDL Cholesterol Direct HDL Cholesterol Arterial Blood Glucose Arterial Blood Ionized Calcium Urine WBC (Auto) 03/23/20 03/23/20 03/23/20 01:47 06:21 07:57 WBC RBC Hgb Hct MCV MCH RDW Plt Count Lymph % (Auto) [place] % (Auto) Lymph # (Auto) [place] # (Auto) Seg Neutrophils % Seg Neuts % (Manual) Lymphocytes % (Manual) Monocytes % (Manual) Basophils % (Manual) Seg Neutrophils # Seg Neutrophils # Man Lymphocytes # (Manual) Monocytes # (Manual) Eosinophils # (Manual) Basophils # (Manual) PT INR D-Dimer ABG pH POC ABG pCO2 POC ABG pO2 ABG pO2 ABG HCO3 ABG O2 Saturation ABG Base Excess ABG Hemoglobin ABG Oxyhemoglobin ABG Potassium ABG Glucose Oxyhemoglobin Carboxyhemoglobin Sodium Potassium Chloride Carbon Dioxide BUN Creatinine Glucose POC Glucose 130 H Calcium Ferritin Total Bilirubin Alkaline Phosphatase Lactate Dehydrogenase Total Creatine Kinase CK-MB (CK-2) Rel Index Troponin T 0.143 H* D 0.105 H* D C-Reactive Protein Total Protein Albumin Prealbumin LDL Cholesterol Direct HDL Cholesterol Arterial Blood Glucose Arterial Blood Ionized Calcium Urine WBC (Auto) 03/23/20 03/24/20 03/24/20 12:02 05:33 07:15 WBC 18.0 H RBC Hgb 11.0 L Hct 34.0 L MCV MCH RDW 17.4 H Plt Count 520 H Lymph % (Auto) [place] % (Auto) Lymph # (Auto) [place] # (Auto) Seg Neutrophils % Seg Neuts % (Manual) 88.0 H Lymphocytes % (Manual) 7.0 L Monocytes % (Manual) Basophils % (Manual) Seg Neutrophils # Seg Neutrophils # Man 15.8 H Lymphocytes # (Manual) Monocytes # (Manual) Eosinophils # (Manual) Basophils # (Manual) PT INR D-Dimer ABG pH POC ABG pCO2 POC ABG pO2 ABG pO2 ABG HCO3 ABG O2 Saturation ABG Base Excess ABG Hemoglobin ABG Oxyhemoglobin ABG Potassium ABG Glucose Oxyhemoglobin Carboxyhemoglobin Sodium Potassium Chloride Carbon Dioxide BUN Creatinine Glucose POC Glucose 137 H 112 H Calcium Ferritin Total Bilirubin Alkaline Phosphatase Lactate Dehydrogenase Total Creatine Kinase CK-MB (CK-2) Rel Index Troponin T C-Reactive Protein Total Protein Albumin Prealbumin LDL Cholesterol Direct HDL Cholesterol Arterial Blood Glucose Arterial Blood Ionized Calcium Urine WBC (Auto) 03/24/20 03/24/20 03/24/20 07:15 11:22 23:30 WBC RBC Hgb Hct MCV MCH RDW Plt Count Lymph % (Auto) [place] % (Auto) Lymph # (Auto) [place] # (Auto) Seg Neutrophils % Seg Neuts % (Manual) Lymphocytes % (Manual) Monocytes % (Manual) Basophils % (Manual) Seg Neutrophils # Seg Neutrophils # Man Lymphocytes # (Manual) Monocytes # (Manual) Eosinophils # (Manual) Basophils # (Manual) PT INR D-Dimer ABG pH POC ABG pCO2 POC ABG pO2 ABG pO2 ABG HCO3 ABG O2 Saturation ABG Base Excess ABG Hemoglobin ABG Oxyhemoglobin ABG Potassium ABG Glucose Oxyhemoglobin Carboxyhemoglobin Sodium Potassium Chloride 96.6 L Carbon Dioxide 38 H BUN Creatinine < 0.2 L Glucose 141 H POC Glucose 130 H 120 H Calcium Ferritin Total Bilirubin Alkaline Phosphatase Lactate Dehydrogenase Total Creatine Kinase CK-MB (CK-2) Rel Index Troponin T C-Reactive Protein Total Protein Albumin Prealbumin LDL Cholesterol Direct HDL Cholesterol Arterial Blood Glucose Arterial Blood Ionized Calcium Urine WBC (Auto) 03/25/20 03/25/20 03/25/20 05:48 17:53 23:18 WBC RBC Hgb Hct MCV MCH RDW Plt Count Lymph % (Auto) [place] % (Auto) Lymph # (Auto) [place] # (Auto) Seg Neutrophils % Seg Neuts % (Manual) Lymphocytes % (Manual) Monocytes % (Manual) Basophils % (Manual) Seg Neutrophils # Seg Neutrophils # Man Lymphocytes # (Manual) Monocytes # (Manual) Eosinophils # (Manual) Basophils # (Manual) PT INR D-Dimer ABG pH POC ABG pCO2 POC ABG pO2 ABG pO2 ABG HCO3 ABG O2 Saturation ABG Base Excess ABG Hemoglobin ABG Oxyhemoglobin ABG Potassium ABG Glucose Oxyhemoglobin Carboxyhemoglobin Sodium Potassium Chloride Carbon Dioxide BUN Creatinine Glucose POC Glucose 124 H 109 H 131 H Calcium Ferritin Total Bilirubin Alkaline Phosphatase Lactate Dehydrogenase Total Creatine Kinase CK-MB (CK-2) Rel Index Troponin T C-Reactive Protein Total Protein Albumin Prealbumin LDL Cholesterol Direct HDL Cholesterol Arterial Blood Glucose Arterial Blood Ionized Calcium Urine WBC (Auto) 03/26/20 03/26/20 03/26/20 05:21 08:49 08:49 WBC 19.7 H RBC Hgb 10.7 L Hct 33.5 L MCV MCH 27 L RDW 17.1 H Plt Count 480 H Lymph % (Auto) 5.7 L [place] % (Auto) Lymph # (Auto) 1.1 L [place] # (Auto) 1.2 H Seg Neutrophils % 87.7 H Seg Neuts % (Manual) Lymphocytes % (Manual) Monocytes % (Manual) Basophils % (Manual) Seg Neutrophils # 17.2 H Seg Neutrophils # Man Lymphocytes # (Manual) Monocytes # (Manual) Eosinophils # (Manual) Basophils # (Manual) PT INR D-Dimer ABG pH POC ABG pCO2 POC ABG pO2 ABG pO2 ABG HCO3 ABG O2 Saturation ABG Base Excess ABG Hemoglobin ABG Oxyhemoglobin ABG Potassium ABG Glucose Oxyhemoglobin Carboxyhemoglobin Sodium Potassium Chloride 97.2 L Carbon Dioxide 36 H BUN Creatinine < 0.2 L Glucose 127 H POC Glucose 116 H Calcium Ferritin Total Bilirubin Alkaline Phosphatase Lactate Dehydrogenase Total Creatine Kinase CK-MB (CK-2) Rel Index Troponin T C-Reactive Protein Total Protein Albumin Prealbumin LDL Cholesterol Direct HDL Cholesterol Arterial Blood Glucose Arterial Blood Ionized Calcium Urine WBC (Auto) 03/26/20 03/26/20 03/26/20 11:38 18:44 23:06 WBC RBC Hgb Hct MCV MCH RDW Plt Count Lymph % (Auto) [place] % (Auto) Lymph # (Auto) [place] # (Auto) Seg Neutrophils % Seg Neuts % (Manual) Lymphocytes % (Manual) Monocytes % (Manual) Basophils % (Manual) Seg Neutrophils # Seg Neutrophils # Man Lymphocytes # (Manual) Monocytes # (Manual) Eosinophils # (Manual) Basophils # (Manual) PT INR D-Dimer ABG pH POC ABG pCO2 POC ABG pO2 ABG pO2 ABG HCO3 ABG O2 Saturation ABG Base Excess ABG Hemoglobin ABG Oxyhemoglobin ABG Potassium ABG Glucose Oxyhemoglobin Carboxyhemoglobin Sodium Potassium Chloride Carbon Dioxide BUN Creatinine Glucose POC Glucose 120 H 111 H 134 H Calcium Ferritin Total Bilirubin Alkaline Phosphatase Lactate Dehydrogenase Total Creatine Kinase CK-MB (CK-2) Rel Index Troponin T C-Reactive Protein Total Protein Albumin Prealbumin LDL Cholesterol Direct HDL Cholesterol Arterial Blood Glucose Arterial Blood Ionized Calcium Urine WBC (Auto) 03/27/20 03/27/20 03/27/20 05:41 05:59 05:59 WBC 18.6 H RBC Hgb 10.1 L Hct 31.4 L MCV MCH RDW 17.2 H Plt Count Lymph % (Auto) 8.0 L [place] % (Auto) Lymph # (Auto) [place] # (Auto) 1.2 H Seg Neutrophils % 84.7 H Seg Neuts % (Manual) Lymphocytes % (Manual) Monocytes % (Manual) Basophils % (Manual) Seg Neutrophils # 15.8 H Seg Neutrophils # Man Lymphocytes # (Manual) Monocytes # (Manual) Eosinophils # (Manual) Basophils # (Manual) PT INR D-Dimer ABG pH POC ABG pCO2 POC ABG pO2 ABG pO2 ABG HCO3 ABG O2 Saturation ABG Base Excess ABG Hemoglobin ABG Oxyhemoglobin ABG Potassium ABG Glucose Oxyhemoglobin Carboxyhemoglobin Sodium Potassium Chloride Carbon Dioxide 34 H BUN Creatinine < 0.2 L Glucose 127 H POC Glucose 129 H Calcium Ferritin Total Bilirubin Alkaline Phosphatase Lactate Dehydrogenase Total Creatine Kinase CK-MB (CK-2) Rel Index Troponin T C-Reactive Protein Total Protein Albumin Prealbumin LDL Cholesterol Direct HDL Cholesterol Arterial Blood Glucose Arterial Blood Ionized Calcium Urine WBC (Auto) 03/27/20 03/27/20 03/28/20 17:28 23:22 05:23 WBC RBC Hgb Hct MCV MCH RDW Plt Count Lymph % (Auto) [place] % (Auto) Lymph # (Auto) [place] # (Auto) Seg Neutrophils % Seg Neuts % (Manual) Lymphocytes % (Manual) Monocytes % (Manual) Basophils % (Manual) Seg Neutrophils # Seg Neutrophils # Man Lymphocytes # (Manual) Monocytes # (Manual) Eosinophils # (Manual) Basophils # (Manual) PT INR D-Dimer ABG pH POC ABG pCO2 POC ABG pO2 ABG pO2 ABG HCO3 ABG O2 Saturation ABG Base Excess ABG Hemoglobin ABG Oxyhemoglobin ABG Potassium ABG Glucose Oxyhemoglobin Carboxyhemoglobin Sodium Potassium Chloride Carbon Dioxide BUN Creatinine Glucose POC Glucose 108 H 119 H 129 H Calcium Ferritin Total Bilirubin Alkaline Phosphatase Lactate Dehydrogenase Total Creatine Kinase CK-MB (CK-2) Rel Index Troponin T C-Reactive Protein Total Protein Albumin Prealbumin LDL Cholesterol Direct HDL Cholesterol Arterial Blood Glucose Arterial Blood Ionized Calcium Urine WBC (Auto) 03/28/20 03/28/20 03/28/20 10:28 10:28 11:36 WBC 23.6 H RBC 3.62 L Hgb 10.0 L Hct 30.8 L MCV MCH RDW 16.4 H Plt Count Lymph % (Auto) [place] % (Auto) Lymph # (Auto) [place] # (Auto) Seg Neutrophils % Seg Neuts % (Manual) 89.0 H Lymphocytes % (Manual) 5.0 L Monocytes % (Manual) Basophils % (Manual) Seg Neutrophils # Seg Neutrophils # Man 21.0 H Lymphocytes # (Manual) Monocytes # (Manual) 1.2 H Eosinophils # (Manual) Basophils # (Manual) 0.2 H PT INR D-Dimer ABG pH POC ABG pCO2 POC ABG pO2 ABG pO2 ABG HCO3 ABG O2 Saturation ABG Base Excess ABG Hemoglobin ABG Oxyhemoglobin ABG Potassium ABG Glucose Oxyhemoglobin Carboxyhemoglobin Sodium 134 L Potassium Chloride 94.2 L Carbon Dioxide 35 H BUN Creatinine < 0.2 L Glucose 134 H POC Glucose Calcium Ferritin Total Bilirubin Alkaline Phosphatase Lactate Dehydrogenase Total Creatine Kinase CK-MB (CK-2) Rel Index Troponin T C-Reactive Protein Total Protein Albumin Prealbumin LDL Cholesterol Direct HDL Cholesterol Arterial Blood Glucose Arterial Blood Ionized Calcium Urine WBC (Auto) 39.0 H 03/28/20 03/28/20 03/28/20 11:51 17:08 17:17 WBC RBC Hgb Hct MCV MCH RDW Plt Count Lymph % (Auto) [place] % (Auto) Lymph # (Auto) [place] # (Auto) Seg Neutrophils % Seg Neuts % (Manual) Lymphocytes % (Manual) Monocytes % (Manual) Basophils % (Manual) Seg Neutrophils # Seg Neutrophils # Man Lymphocytes # (Manual) Monocytes # (Manual) Eosinophils # (Manual) Basophils # (Manual) PT INR D-Dimer ABG pH POC ABG pCO2 POC ABG pO2 ABG pO2 ABG HCO3 ABG O2 Saturation ABG Base Excess ABG Hemoglobin ABG Oxyhemoglobin ABG Potassium ABG Glucose Oxyhemoglobin Carboxyhemoglobin Sodium Potassium Chloride Carbon Dioxide BUN Creatinine Glucose POC Glucose 123 H 112 H Calcium Ferritin Total Bilirubin Alkaline Phosphatase Lactate Dehydrogenase Total Creatine Kinase 47 L CK-MB (CK-2) Rel Index 4.6 H Troponin T 0.090 H C-Reactive Protein Total Protein Albumin Prealbumin LDL Cholesterol Direct HDL Cholesterol Arterial Blood Glucose Arterial Blood Ionized Calcium Urine WBC (Auto) 03/28/20 03/29/20 03/29/20 23:22 05:22 10:58 WBC RBC Hgb Hct MCV MCH RDW Plt Count Lymph % (Auto) [place] % (Auto) Lymph # (Auto) [place] # (Auto) Seg Neutrophils % Seg Neuts % (Manual) Lymphocytes % (Manual) Monocytes % (Manual) Basophils % (Manual) Seg Neutrophils # Seg Neutrophils # Man Lymphocytes # (Manual) Monocytes # (Manual) Eosinophils # (Manual) Basophils # (Manual) PT INR D-Dimer ABG pH POC ABG pCO2 POC ABG pO2 ABG pO2 ABG HCO3 ABG O2 Saturation ABG Base Excess ABG Hemoglobin ABG Oxyhemoglobin ABG Potassium ABG Glucose Oxyhemoglobin Carboxyhemoglobin Sodium Potassium Chloride Carbon Dioxide BUN Creatinine Glucose POC Glucose 122 H 116 H 133 H Calcium Ferritin Total Bilirubin Alkaline Phosphatase Lactate Dehydrogenase Total Creatine Kinase CK-MB (CK-2) Rel Index Troponin T C-Reactive Protein Total Protein Albumin Prealbumin LDL Cholesterol Direct HDL Cholesterol Arterial Blood Glucose Arterial Blood Ionized Calcium Urine WBC (Auto) 03/29/20 03/29/20 03/30/20 17:18 23:14 04:57 WBC RBC Hgb Hct MCV MCH RDW Plt Count Lymph % (Auto) [place] % (Auto) Lymph # (Auto) [place] # (Auto) Seg Neutrophils % Seg Neuts % (Manual) Lymphocytes % (Manual) Monocytes % (Manual) Basophils % (Manual) Seg Neutrophils # Seg Neutrophils # Man Lymphocytes # (Manual) Monocytes # (Manual) Eosinophils # (Manual) Basophils # (Manual) PT INR D-Dimer ABG pH POC ABG pCO2 POC ABG pO2 ABG pO2 ABG HCO3 ABG O2 Saturation ABG Base Excess ABG Hemoglobin ABG Oxyhemoglobin ABG Potassium ABG Glucose Oxyhemoglobin Carboxyhemoglobin Sodium Potassium Chloride Carbon Dioxide BUN Creatinine Glucose POC Glucose 111 H 114 H 130 H Calcium Ferritin Total Bilirubin Alkaline Phosphatase Lactate Dehydrogenase Total Creatine Kinase CK-MB (CK-2) Rel Index Troponin T C-Reactive Protein Total Protein Albumin Prealbumin LDL Cholesterol Direct HDL Cholesterol Arterial Blood Glucose Arterial Blood Ionized Calcium Urine WBC (Auto) 03/30/20 03/30/20 03/30/20 11:38 14:47 14:47 WBC 19.9 H RBC Hgb 10.9 L Hct 34.4 L MCV MCH 27 L RDW 16.5 H Plt Count 441 H Lymph % (Auto) 6.4 L [place] % (Auto) Lymph # (Auto) [place] # (Auto) 1.4 H Seg Neutrophils % 86.1 H Seg Neuts % (Manual) Lymphocytes % (Manual) Monocytes % (Manual) Basophils % (Manual) Seg Neutrophils # 17.1 H Seg Neutrophils # Man Lymphocytes # (Manual) Monocytes # (Manual) Eosinophils # (Manual) Basophils # (Manual) PT INR D-Dimer ABG pH POC ABG pCO2 POC ABG pO2 ABG pO2 ABG HCO3 ABG O2 Saturation ABG Base Excess ABG Hemoglobin ABG Oxyhemoglobin ABG Potassium ABG Glucose Oxyhemoglobin Carboxyhemoglobin Sodium 133 L Potassium Chloride 94.6 L Carbon Dioxide 33 H BUN Creatinine < 0.2 L Glucose 194 H POC Glucose 139 H Calcium Ferritin Total Bilirubin Alkaline Phosphatase Lactate Dehydrogenase Total Creatine Kinase CK-MB (CK-2) Rel Index Troponin T C-Reactive Protein Total Protein Albumin 2.8 L Prealbumin LDL Cholesterol Direct HDL Cholesterol Arterial Blood Glucose Arterial Blood Ionized Calcium Urine WBC (Auto) 03/30/20 03/31/20 03/31/20 17:07 05:02 15:21 WBC RBC Hgb Hct MCV MCH RDW Plt Count Lymph % (Auto) [place] % (Auto) Lymph # (Auto) [place] # (Auto) Seg Neutrophils % Seg Neuts % (Manual) Lymphocytes % (Manual) Monocytes % (Manual) Basophils % (Manual) Seg Neutrophils # Seg Neutrophils # Man Lymphocytes # (Manual) Monocytes # (Manual) Eosinophils # (Manual) Basophils # (Manual) PT INR D-Dimer ABG pH POC ABG pCO2 POC ABG pO2 ABG pO2 ABG HCO3 ABG O2 Saturation ABG Base Excess ABG Hemoglobin ABG Oxyhemoglobin ABG Potassium ABG Glucose Oxyhemoglobin Carboxyhemoglobin Sodium Potassium Chloride Carbon Dioxide BUN Creatinine Glucose POC Glucose 163 H 108 H 110 H Calcium Ferritin Total Bilirubin Alkaline Phosphatase Lactate Dehydrogenase Total Creatine Kinase CK-MB (CK-2) Rel Index Troponin T C-Reactive Protein Total Protein Albumin Prealbumin LDL Cholesterol Direct HDL Cholesterol Arterial Blood Glucose Arterial Blood Ionized Calcium Urine WBC (Auto) 03/31/20 03/31/20 04/01/20 17:58 23:19 05:09 WBC RBC Hgb Hct MCV MCH RDW Plt Count Lymph % (Auto) [place] % (Auto) Lymph # (Auto) [place] # (Auto) Seg Neutrophils % Seg Neuts % (Manual) Lymphocytes % (Manual) Monocytes % (Manual) Basophils % (Manual) Seg Neutrophils # Seg Neutrophils # Man Lymphocytes # (Manual) Monocytes # (Manual) Eosinophils # (Manual) Basophils # (Manual) PT INR D-Dimer ABG pH POC ABG pCO2 POC ABG pO2 ABG pO2 ABG HCO3 ABG O2 Saturation ABG Base Excess ABG Hemoglobin ABG Oxyhemoglobin ABG Potassium ABG Glucose Oxyhemoglobin Carboxyhemoglobin Sodium Potassium Chloride Carbon Dioxide BUN Creatinine Glucose POC Glucose 110 H 131 H 124 H Calcium Ferritin Total Bilirubin Alkaline Phosphatase Lactate Dehydrogenase Total Creatine Kinase CK-MB (CK-2) Rel Index Troponin T C-Reactive Protein Total Protein Albumin Prealbumin LDL Cholesterol Direct HDL Cholesterol Arterial Blood Glucose Arterial Blood Ionized Calcium Urine WBC (Auto) 04/01/20 04/01/20 04/01/20 11:50 17:01 23:21 WBC RBC Hgb Hct MCV MCH RDW Plt Count Lymph % (Auto) [place] % (Auto) Lymph # (Auto) [place] # (Auto) Seg Neutrophils % Seg Neuts % (Manual) Lymphocytes % (Manual) Monocytes % (Manual) Basophils % (Manual) Seg Neutrophils # Seg Neutrophils # Man Lymphocytes # (Manual) Monocytes # (Manual) Eosinophils # (Manual) Basophils # (Manual) PT INR D-Dimer ABG pH POC ABG pCO2 POC ABG pO2 ABG pO2 ABG HCO3 ABG O2 Saturation ABG Base Excess ABG Hemoglobin ABG Oxyhemoglobin ABG Potassium ABG Glucose Oxyhemoglobin Carboxyhemoglobin Sodium Potassium Chloride Carbon Dioxide BUN Creatinine Glucose POC Glucose 136 H 115 H 124 H Calcium Ferritin Total Bilirubin Alkaline Phosphatase Lactate Dehydrogenase Total Creatine Kinase CK-MB (CK-2) Rel Index Troponin T C-Reactive Protein Total Protein Albumin Prealbumin LDL Cholesterol Direct HDL Cholesterol Arterial Blood Glucose Arterial Blood Ionized Calcium Urine WBC (Auto) 04/02/20 04/02/20 04/02/20 05:27 11:58 17:58 WBC RBC Hgb Hct MCV MCH RDW Plt Count Lymph % (Auto) [place] % (Auto) Lymph # (Auto) [place] # (Auto) Seg Neutrophils % Seg Neuts % (Manual) Lymphocytes % (Manual) Monocytes % (Manual) Basophils % (Manual) Seg Neutrophils # Seg Neutrophils # Man Lymphocytes # (Manual) Monocytes # (Manual) Eosinophils # (Manual) Basophils # (Manual) PT INR D-Dimer ABG pH POC ABG pCO2 POC ABG pO2 ABG pO2 ABG HCO3 ABG O2 Saturation ABG Base Excess ABG Hemoglobin ABG Oxyhemoglobin ABG Potassium ABG Glucose Oxyhemoglobin Carboxyhemoglobin Sodium Potassium Chloride Carbon Dioxide BUN Creatinine Glucose POC Glucose 117 H 133 H 122 H Calcium Ferritin Total Bilirubin Alkaline Phosphatase Lactate Dehydrogenase Total Creatine Kinase CK-MB (CK-2) Rel Index Troponin T C-Reactive Protein Total Protein Albumin Prealbumin LDL Cholesterol Direct HDL Cholesterol Arterial Blood Glucose Arterial Blood Ionized Calcium Urine WBC (Auto) 04/02/20 04/03/20 04/03/20 23:12 05:11 11:11 WBC RBC Hgb Hct MCV MCH RDW Plt Count Lymph % (Auto) [place] % (Auto) Lymph # (Auto) [place] # (Auto) Seg Neutrophils % Seg Neuts % (Manual) Lymphocytes % (Manual) Monocytes % (Manual) Basophils % (Manual) Seg Neutrophils # Seg Neutrophils # Man Lymphocytes # (Manual) Monocytes # (Manual) Eosinophils # (Manual) Basophils # (Manual) PT INR D-Dimer ABG pH POC ABG pCO2 POC ABG pO2 ABG pO2 ABG HCO3 ABG O2 Saturation ABG Base Excess ABG Hemoglobin ABG Oxyhemoglobin ABG Potassium ABG Glucose Oxyhemoglobin Carboxyhemoglobin Sodium Potassium Chloride Carbon Dioxide BUN Creatinine Glucose POC Glucose 130 H 139 H 136 H Calcium Ferritin Total Bilirubin Alkaline Phosphatase Lactate Dehydrogenase Total Creatine Kinase CK-MB (CK-2) Rel Index Troponin T C-Reactive Protein Total Protein Albumin Prealbumin LDL Cholesterol Direct HDL Cholesterol Arterial Blood Glucose Arterial Blood Ionized Calcium Urine WBC (Auto) 04/03/20 04/03/20 04/04/20 16:51 23:25 05:29 WBC RBC Hgb Hct MCV MCH RDW Plt Count Lymph % (Auto) [place] % (Auto) Lymph # (Auto) [place] # (Auto) Seg Neutrophils % Seg Neuts % (Manual) Lymphocytes % (Manual) Monocytes % (Manual) Basophils % (Manual) Seg Neutrophils # Seg Neutrophils # Man Lymphocytes # (Manual) Monocytes # (Manual) Eosinophils # (Manual) Basophils # (Manual) PT INR D-Dimer ABG pH POC ABG pCO2 POC ABG pO2 ABG pO2 ABG HCO3 ABG O2 Saturation ABG Base Excess ABG Hemoglobin ABG Oxyhemoglobin ABG Potassium ABG Glucose Oxyhemoglobin Carboxyhemoglobin Sodium Potassium Chloride Carbon Dioxide BUN Creatinine Glucose POC Glucose 118 H 111 H 126 H Calcium Ferritin Total Bilirubin Alkaline Phosphatase Lactate Dehydrogenase Total Creatine Kinase CK-MB (CK-2) Rel Index Troponin T C-Reactive Protein Total Protein Albumin Prealbumin LDL Cholesterol Direct HDL Cholesterol Arterial Blood Glucose Arterial Blood Ionized Calcium Urine WBC (Auto) 04/04/20 04/04/20 04/04/20 11:47 17:41 23:05 WBC RBC Hgb Hct MCV MCH RDW Plt Count Lymph % (Auto) [place] % (Auto) Lymph # (Auto) [place] # (Auto) Seg Neutrophils % Seg Neuts % (Manual) Lymphocytes % (Manual) Monocytes % (Manual) Basophils % (Manual) Seg Neutrophils # Seg Neutrophils # Man Lymphocytes # (Manual) Monocytes # (Manual) Eosinophils # (Manual) Basophils # (Manual) PT INR D-Dimer ABG pH POC ABG pCO2 POC ABG pO2 ABG pO2 ABG HCO3 ABG O2 Saturation ABG Base Excess ABG Hemoglobin ABG Oxyhemoglobin ABG Potassium ABG Glucose Oxyhemoglobin Carboxyhemoglobin Sodium Potassium Chloride Carbon Dioxide BUN Creatinine Glucose POC Glucose 123 H 120 H 119 H Calcium Ferritin Total Bilirubin Alkaline Phosphatase Lactate Dehydrogenase Total Creatine Kinase CK-MB (CK-2) Rel Index Troponin T C-Reactive Protein Total Protein Albumin Prealbumin LDL Cholesterol Direct HDL Cholesterol Arterial Blood Glucose Arterial Blood Ionized Calcium Urine WBC (Auto) 04/05/20 04/05/20 04/05/20 05:14 12:16 18:48 WBC RBC Hgb Hct MCV MCH RDW Plt Count Lymph % (Auto) [place] % (Auto) Lymph # (Auto) [place] # (Auto) Seg Neutrophils % Seg Neuts % (Manual) Lymphocytes % (Manual) Monocytes % (Manual) Basophils % (Manual) Seg Neutrophils # Seg Neutrophils # Man Lymphocytes # (Manual) Monocytes # (Manual) Eosinophils # (Manual) Basophils # (Manual) PT INR D-Dimer ABG pH POC ABG pCO2 POC ABG pO2 ABG pO2 ABG HCO3 ABG O2 Saturation ABG Base Excess ABG Hemoglobin ABG Oxyhemoglobin ABG Potassium ABG Glucose Oxyhemoglobin Carboxyhemoglobin Sodium Potassium Chloride Carbon Dioxide BUN Creatinine Glucose POC Glucose 123 H 148 H 106 H Calcium Ferritin Total Bilirubin Alkaline Phosphatase Lactate Dehydrogenase Total Creatine Kinase CK-MB (CK-2) Rel Index Troponin T C-Reactive Protein Total Protein Albumin Prealbumin LDL Cholesterol Direct HDL Cholesterol Arterial Blood Glucose Arterial Blood Ionized Calcium Urine WBC (Auto) 04/06/20 04/06/20 04/06/20 00:47 03:26 08:24 WBC RBC Hgb Hct MCV MCH RDW Plt Count Lymph % (Auto) [place] % (Auto) Lymph # (Auto) [place] # (Auto) Seg Neutrophils % Seg Neuts % (Manual) Lymphocytes % (Manual) Monocytes % (Manual) Basophils % (Manual) Seg Neutrophils # Seg Neutrophils # Man Lymphocytes # (Manual) Monocytes # (Manual) Eosinophils # (Manual) Basophils # (Manual) PT INR D-Dimer ABG pH POC ABG pCO2 POC ABG pO2 ABG pO2 ABG HCO3 ABG O2 Saturation ABG Base Excess ABG Hemoglobin ABG Oxyhemoglobin ABG Potassium ABG Glucose Oxyhemoglobin Carboxyhemoglobin Sodium Potassium Chloride Carbon Dioxide BUN Creatinine Glucose POC Glucose 129 H 134 H 131 H Calcium Ferritin Total Bilirubin Alkaline Phosphatase Lactate Dehydrogenase Total Creatine Kinase CK-MB (CK-2) Rel Index Troponin T C-Reactive Protein Total Protein Albumin Prealbumin LDL Cholesterol Direct HDL Cholesterol Arterial Blood Glucose Arterial Blood Ionized Calcium Urine WBC (Auto) 04/06/20 04/06/20 04/06/20 11:16 16:27 23:01 WBC RBC Hgb Hct MCV MCH RDW Plt Count Lymph % (Auto) [place] % (Auto) Lymph # (Auto) [place] # (Auto) Seg Neutrophils % Seg Neuts % (Manual) Lymphocytes % (Manual) Monocytes % (Manual) Basophils % (Manual) Seg Neutrophils # Seg Neutrophils # Man Lymphocytes # (Manual) Monocytes # (Manual) Eosinophils # (Manual) Basophils # (Manual) PT INR D-Dimer ABG pH POC ABG pCO2 POC ABG pO2 ABG pO2 ABG HCO3 ABG O2 Saturation ABG Base Excess ABG Hemoglobin ABG Oxyhemoglobin ABG Potassium ABG Glucose Oxyhemoglobin Carboxyhemoglobin Sodium Potassium Chloride Carbon Dioxide BUN Creatinine Glucose POC Glucose 131 H 107 H 125 H Calcium Ferritin Total Bilirubin Alkaline Phosphatase Lactate Dehydrogenase Total Creatine Kinase CK-MB (CK-2) Rel Index Troponin T C-Reactive Protein Total Protein Albumin Prealbumin LDL Cholesterol Direct HDL Cholesterol Arterial Blood Glucose Arterial Blood Ionized Calcium Urine WBC (Auto) 04/07/20 04/07/20 04/07/20 05:24 12:41 17:40 WBC RBC Hgb Hct MCV MCH RDW Plt Count Lymph % (Auto) [place] % (Auto) Lymph # (Auto) [place] # (Auto) Seg Neutrophils % Seg Neuts % (Manual) Lymphocytes % (Manual) Monocytes % (Manual) Basophils % (Manual) Seg Neutrophils # Seg Neutrophils # Man Lymphocytes # (Manual) Monocytes # (Manual) Eosinophils # (Manual) Basophils # (Manual) PT INR D-Dimer ABG pH POC ABG pCO2 POC ABG pO2 ABG pO2 ABG HCO3 ABG O2 Saturation ABG Base Excess ABG Hemoglobin ABG Oxyhemoglobin ABG Potassium ABG Glucose Oxyhemoglobin Carboxyhemoglobin Sodium Potassium Chloride Carbon Dioxide BUN Creatinine Glucose POC Glucose 125 H 145 H 123 H Calcium Ferritin Total Bilirubin Alkaline Phosphatase Lactate Dehydrogenase Total Creatine Kinase CK-MB (CK-2) Rel Index Troponin T C-Reactive Protein Total Protein Albumin Prealbumin LDL Cholesterol Direct HDL Cholesterol Arterial Blood Glucose Arterial Blood Ionized Calcium Urine WBC (Auto) 04/07/20 04/08/20 04/08/20 23:22 05:40 11:29 WBC RBC Hgb Hct MCV MCH RDW Plt Count Lymph % (Auto) [place] % (Auto) Lymph # (Auto) [place] # (Auto) Seg Neutrophils % Seg Neuts % (Manual) Lymphocytes % (Manual) Monocytes % (Manual) Basophils % (Manual) Seg Neutrophils # Seg Neutrophils # Man Lymphocytes # (Manual) Monocytes # (Manual) Eosinophils # (Manual) Basophils # (Manual) PT INR D-Dimer ABG pH POC ABG pCO2 POC ABG pO2 ABG pO2 ABG HCO3 ABG O2 Saturation ABG Base Excess ABG Hemoglobin ABG Oxyhemoglobin ABG Potassium ABG Glucose Oxyhemoglobin Carboxyhemoglobin Sodium Potassium Chloride Carbon Dioxide BUN Creatinine Glucose POC Glucose 133 H 125 H 116 H Calcium Ferritin Total Bilirubin Alkaline Phosphatase Lactate Dehydrogenase Total Creatine Kinase CK-MB (CK-2) Rel Index Troponin T C-Reactive Protein Total Protein Albumin Prealbumin LDL Cholesterol Direct HDL Cholesterol Arterial Blood Glucose Arterial Blood Ionized Calcium Urine WBC (Auto) 04/08/20 04/09/20 04/09/20 17:43 05:47 12:22 WBC RBC Hgb Hct MCV MCH RDW Plt Count Lymph % (Auto) [place] % (Auto) Lymph # (Auto) [place] # (Auto) Seg Neutrophils % Seg Neuts % (Manual) Lymphocytes % (Manual) Monocytes % (Manual) Basophils % (Manual) Seg Neutrophils # Seg Neutrophils # Man Lymphocytes # (Manual) Monocytes # (Manual) Eosinophils # (Manual) Basophils # (Manual) PT INR D-Dimer ABG pH POC ABG pCO2 POC ABG pO2 ABG pO2 ABG HCO3 ABG O2 Saturation ABG Base Excess ABG Hemoglobin ABG Oxyhemoglobin ABG Potassium ABG Glucose Oxyhemoglobin Carboxyhemoglobin Sodium Potassium Chloride Carbon Dioxide BUN Creatinine Glucose POC Glucose 123 H 108 H 116 H Calcium Ferritin Total Bilirubin Alkaline Phosphatase Lactate Dehydrogenase Total Creatine Kinase CK-MB (CK-2) Rel Index Troponin T C-Reactive Protein Total Protein Albumin Prealbumin LDL Cholesterol Direct HDL Cholesterol Arterial Blood Glucose Arterial Blood Ionized Calcium Urine WBC (Auto) 04/09/20 04/09/20 04/10/20 17:24 23:52 06:10 WBC RBC Hgb Hct MCV MCH RDW Plt Count Lymph % (Auto) [place] % (Auto) Lymph # (Auto) [place] # (Auto) Seg Neutrophils % Seg Neuts % (Manual) Lymphocytes % (Manual) Monocytes % (Manual) Basophils % (Manual) Seg Neutrophils # Seg Neutrophils # Man Lymphocytes # (Manual) Monocytes # (Manual) Eosinophils # (Manual) Basophils # (Manual) PT INR D-Dimer ABG pH POC ABG pCO2 POC ABG pO2 ABG pO2 ABG HCO3 ABG O2 Saturation ABG Base Excess ABG Hemoglobin ABG Oxyhemoglobin ABG Potassium ABG Glucose Oxyhemoglobin Carboxyhemoglobin Sodium Potassium Chloride Carbon Dioxide BUN Creatinine Glucose POC Glucose 108 H 126 H 122 H Calcium Ferritin Total Bilirubin Alkaline Phosphatase Lactate Dehydrogenase Total Creatine Kinase CK-MB (CK-2) Rel Index Troponin T C-Reactive Protein Total Protein Albumin Prealbumin LDL Cholesterol Direct HDL Cholesterol Arterial Blood Glucose Arterial Blood Ionized Calcium Urine WBC (Auto) 04/10/20 04/10/20 04/10/20 11:27 18:11 23:24 WBC RBC Hgb Hct MCV MCH RDW Plt Count Lymph % (Auto) [place] % (Auto) Lymph # (Auto) [place] # (Auto) Seg Neutrophils % Seg Neuts % (Manual) Lymphocytes % (Manual) Monocytes % (Manual) Basophils % (Manual) Seg Neutrophils # Seg Neutrophils # Man Lymphocytes # (Manual) Monocytes # (Manual) Eosinophils # (Manual) Basophils # (Manual) PT INR D-Dimer ABG pH POC ABG pCO2 POC ABG pO2 ABG pO2 ABG HCO3 ABG O2 Saturation ABG Base Excess ABG Hemoglobin ABG Oxyhemoglobin ABG Potassium ABG Glucose Oxyhemoglobin Carboxyhemoglobin Sodium Potassium Chloride Carbon Dioxide BUN Creatinine Glucose POC Glucose 129 H 125 H 107 H Calcium Ferritin Total Bilirubin Alkaline Phosphatase Lactate Dehydrogenase Total Creatine Kinase CK-MB (CK-2) Rel Index Troponin T C-Reactive Protein Total Protein Albumin Prealbumin LDL Cholesterol Direct HDL Cholesterol Arterial Blood Glucose Arterial Blood Ionized Calcium Urine WBC (Auto) 04/11/20 04/11/20 04/11/20 05:28 11:46 23:49 WBC RBC Hgb Hct MCV MCH RDW Plt Count Lymph % (Auto) [place] % (Auto) Lymph # (Auto) [place] # (Auto) Seg Neutrophils % Seg Neuts % (Manual) Lymphocytes % (Manual) Monocytes % (Manual) Basophils % (Manual) Seg Neutrophils # Seg Neutrophils # Man Lymphocytes # (Manual) Monocytes # (Manual) Eosinophils # (Manual) Basophils # (Manual) PT INR D-Dimer ABG pH POC ABG pCO2 POC ABG pO2 ABG pO2 ABG HCO3 ABG O2 Saturation ABG Base Excess ABG Hemoglobin ABG Oxyhemoglobin ABG Potassium ABG Glucose Oxyhemoglobin Carboxyhemoglobin Sodium Potassium Chloride Carbon Dioxide BUN Creatinine Glucose POC Glucose 122 H 122 H 116 H Calcium Ferritin Total Bilirubin Alkaline Phosphatase Lactate Dehydrogenase Total Creatine Kinase CK-MB (CK-2) Rel Index Troponin T C-Reactive Protein Total Protein Albumin Prealbumin LDL Cholesterol Direct HDL Cholesterol Arterial Blood Glucose Arterial Blood Ionized Calcium Urine WBC (Auto) 04/12/20 04/12/20 04/12/20 09:07 09:07 11:39 WBC 13.1 H RBC 3.59 L Hgb 9.5 L Hct 29.8 L MCV 83 L MCH 26 L RDW 16.6 H Plt Count 591 H Lymph % (Auto) [place] % (Auto) Lymph # (Auto) [place] # (Auto) Seg Neutrophils % Seg Neuts % (Manual) 86.0 H Lymphocytes % (Manual) 7.0 L Monocytes % (Manual) Basophils % (Manual) Seg Neutrophils # Seg Neutrophils # Man 11.3 H Lymphocytes # (Manual) 0.9 L Monocytes # (Manual) Eosinophils # (Manual) Basophils # (Manual) PT INR D-Dimer ABG pH POC ABG pCO2 POC ABG pO2 ABG pO2 ABG HCO3 ABG O2 Saturation ABG Base Excess ABG Hemoglobin ABG Oxyhemoglobin ABG Potassium ABG Glucose Oxyhemoglobin Carboxyhemoglobin Sodium Potassium Chloride Carbon Dioxide 36 H BUN Creatinine < 0.2 L Glucose 132 H POC Glucose 136 H Calcium Ferritin Total Bilirubin Alkaline Phosphatase Lactate Dehydrogenase Total Creatine Kinase CK-MB (CK-2) Rel Index Troponin T C-Reactive Protein Total Protein Albumin 2.7 L Prealbumin LDL Cholesterol Direct HDL Cholesterol Arterial Blood Glucose Arterial Blood Ionized Calcium Urine WBC (Auto) 04/12/20 04/12/20 04/13/20 18:13 23:07 05:45 WBC RBC Hgb Hct MCV MCH RDW Plt Count Lymph % (Auto) [place] % (Auto) Lymph # (Auto) [place] # (Auto) Seg Neutrophils % Seg Neuts % (Manual) Lymphocytes % (Manual) Monocytes % (Manual) Basophils % (Manual) Seg Neutrophils # Seg Neutrophils # Man Lymphocytes # (Manual) Monocytes # (Manual) Eosinophils # (Manual) Basophils # (Manual) PT INR D-Dimer ABG pH POC ABG pCO2 POC ABG pO2 ABG pO2 ABG HCO3 ABG O2 Saturation ABG Base Excess ABG Hemoglobin ABG Oxyhemoglobin ABG Potassium ABG Glucose Oxyhemoglobin Carboxyhemoglobin Sodium Potassium Chloride Carbon Dioxide BUN Creatinine Glucose POC Glucose 107 H 106 H 125 H Calcium Ferritin Total Bilirubin Alkaline Phosphatase Lactate Dehydrogenase Total Creatine Kinase CK-MB (CK-2) Rel Index Troponin T C-Reactive Protein Total Protein Albumin Prealbumin LDL Cholesterol Direct HDL Cholesterol Arterial Blood Glucose Arterial Blood Ionized Calcium Urine WBC (Auto) 04/13/20 04/13/20 04/13/20 11:18 17:56 23:33 WBC RBC Hgb Hct MCV MCH RDW Plt Count Lymph % (Auto) [place] % (Auto) Lymph # (Auto) [place] # (Auto) Seg Neutrophils % Seg Neuts % (Manual) Lymphocytes % (Manual) Monocytes % (Manual) Basophils % (Manual) Seg Neutrophils # Seg Neutrophils # Man Lymphocytes # (Manual) Monocytes # (Manual) Eosinophils # (Manual) Basophils # (Manual) PT INR D-Dimer ABG pH POC ABG pCO2 POC ABG pO2 ABG pO2 ABG HCO3 ABG O2 Saturation ABG Base Excess ABG Hemoglobin ABG Oxyhemoglobin ABG Potassium ABG Glucose Oxyhemoglobin Carboxyhemoglobin Sodium Potassium Chloride Carbon Dioxide BUN Creatinine Glucose POC Glucose 133 H 110 H 114 H Calcium Ferritin Total Bilirubin Alkaline Phosphatase Lactate Dehydrogenase Total Creatine Kinase CK-MB (CK-2) Rel Index Troponin T C-Reactive Protein Total Protein Albumin Prealbumin LDL Cholesterol Direct HDL Cholesterol Arterial Blood Glucose Arterial Blood Ionized Calcium Urine WBC (Auto) 04/14/20 04/14/20 04/14/20 05:58 11:45 17:48 WBC RBC Hgb Hct MCV MCH RDW Plt Count Lymph % (Auto) [place] % (Auto) Lymph # (Auto) [place] # (Auto) Seg Neutrophils % Seg Neuts % (Manual) Lymphocytes % (Manual) Monocytes % (Manual) Basophils % (Manual) Seg Neutrophils # Seg Neutrophils # Man Lymphocytes # (Manual) Monocytes # (Manual) Eosinophils # (Manual) Basophils # (Manual) PT INR D-Dimer ABG pH POC ABG pCO2 POC ABG pO2 ABG pO2 ABG HCO3 ABG O2 Saturation ABG Base Excess ABG Hemoglobin ABG Oxyhemoglobin ABG Potassium ABG Glucose Oxyhemoglobin Carboxyhemoglobin Sodium Potassium Chloride Carbon Dioxide BUN Creatinine Glucose POC Glucose 115 H 122 H 124 H Calcium Ferritin Total Bilirubin Alkaline Phosphatase Lactate Dehydrogenase Total Creatine Kinase CK-MB (CK-2) Rel Index Troponin T C-Reactive Protein Total Protein Albumin Prealbumin LDL Cholesterol Direct HDL Cholesterol Arterial Blood Glucose Arterial Blood Ionized Calcium Urine WBC (Auto) 04/15/20 04/15/20 04/15/20 00:11 05:38 11:31 WBC RBC Hgb Hct MCV MCH RDW Plt Count Lymph % (Auto) [place] % (Auto) Lymph # (Auto) [place] # (Auto) Seg Neutrophils % Seg Neuts % (Manual) Lymphocytes % (Manual) Monocytes % (Manual) Basophils % (Manual) Seg Neutrophils # Seg Neutrophils # Man Lymphocytes # (Manual) Monocytes # (Manual) Eosinophils # (Manual) Basophils # (Manual) PT INR D-Dimer ABG pH POC ABG pCO2 POC ABG pO2 ABG pO2 ABG HCO3 ABG O2 Saturation ABG Base Excess ABG Hemoglobin ABG Oxyhemoglobin ABG Potassium ABG Glucose Oxyhemoglobin Carboxyhemoglobin Sodium Potassium Chloride Carbon Dioxide BUN Creatinine Glucose POC Glucose 120 H 109 H 123 H Calcium Ferritin Total Bilirubin Alkaline Phosphatase Lactate Dehydrogenase Total Creatine Kinase CK-MB (CK-2) Rel Index Troponin T C-Reactive Protein Total Protein Albumin Prealbumin LDL Cholesterol Direct HDL Cholesterol Arterial Blood Glucose Arterial Blood Ionized Calcium Urine WBC (Auto) 04/15/20 04/16/20 04/16/20 17:35 06:00 11:29 WBC RBC Hgb Hct MCV MCH RDW Plt Count Lymph % (Auto) [place] % (Auto) Lymph # (Auto) [place] # (Auto) Seg Neutrophils % Seg Neuts % (Manual) Lymphocytes % (Manual) Monocytes % (Manual) Basophils % (Manual) Seg Neutrophils # Seg Neutrophils # Man Lymphocytes # (Manual) Monocytes # (Manual) Eosinophils # (Manual) Basophils # (Manual) PT INR D-Dimer ABG pH POC ABG pCO2 POC ABG pO2 ABG pO2 ABG HCO3 ABG O2 Saturation ABG Base Excess ABG Hemoglobin ABG Oxyhemoglobin ABG Potassium ABG Glucose Oxyhemoglobin Carboxyhemoglobin Sodium Potassium Chloride Carbon Dioxide BUN Creatinine Glucose POC Glucose 111 H 142 H 108 H Calcium Ferritin Total Bilirubin Alkaline Phosphatase Lactate Dehydrogenase Total Creatine Kinase CK-MB (CK-2) Rel Index Troponin T C-Reactive Protein Total Protein Albumin Prealbumin LDL Cholesterol Direct HDL Cholesterol Arterial Blood Glucose Arterial Blood Ionized Calcium Urine WBC (Auto) 04/17/20 04/17/20 04/17/20 05:09 06:53 06:53 WBC 14.2 H RBC Hgb 10.1 L Hct 31.5 L MCV MCH 27 L RDW 17.2 H Plt Count 643 H Lymph % (Auto) [place] % (Auto) Lymph # (Auto) [place] # (Auto) Seg Neutrophils % Seg Neuts % (Manual) Lymphocytes % (Manual) Monocytes % (Manual) Basophils % (Manual) Seg Neutrophils # Seg Neutrophils # Man Lymphocytes # (Manual) Monocytes # (Manual) Eosinophils # (Manual) Basophils # (Manual) PT INR D-Dimer ABG pH POC ABG pCO2 POC ABG pO2 ABG pO2 ABG HCO3 ABG O2 Saturation ABG Base Excess ABG Hemoglobin ABG Oxyhemoglobin ABG Potassium ABG Glucose Oxyhemoglobin Carboxyhemoglobin Sodium Potassium Chloride 97.7 L Carbon Dioxide 38 H BUN Creatinine < 0.2 L Glucose 126 H POC Glucose 131 H Calcium Ferritin Total Bilirubin Alkaline Phosphatase Lactate Dehydrogenase Total Creatine Kinase CK-MB (CK-2) Rel Index Troponin T C-Reactive Protein Total Protein Albumin Prealbumin LDL Cholesterol Direct HDL Cholesterol Arterial Blood Glucose Arterial Blood Ionized Calcium Urine WBC (Auto) 04/17/20 04/18/20 04/18/20 11:21 00:23 04:01 WBC 15.3 H RBC Hgb 10.1 L Hct 31.9 L MCV 82 L MCH 26 L RDW 17.2 H Plt Count 665 H Lymph % (Auto) 12.9 L [place] % (Auto) Lymph # (Auto) [place] # (Auto) 1.1 H Seg Neutrophils % 78.0 H Seg Neuts % (Manual) Lymphocytes % (Manual) Monocytes % (Manual) Basophils % (Manual) Seg Neutrophils # 11.9 H Seg Neutrophils # Man Lymphocytes # (Manual) Monocytes # (Manual) Eosinophils # (Manual) Basophils # (Manual) PT INR D-Dimer ABG pH POC ABG pCO2 POC ABG pO2 ABG pO2 ABG HCO3 ABG O2 Saturation ABG Base Excess ABG Hemoglobin ABG Oxyhemoglobin ABG Potassium ABG Glucose Oxyhemoglobin Carboxyhemoglobin Sodium Potassium Chloride Carbon Dioxide BUN Creatinine Glucose POC Glucose 140 H 125 H Calcium Ferritin Total Bilirubin Alkaline Phosphatase Lactate Dehydrogenase Total Creatine Kinase CK-MB (CK-2) Rel Index Troponin T C-Reactive Protein Total Protein Albumin Prealbumin LDL Cholesterol Direct HDL Cholesterol Arterial Blood Glucose Arterial Blood Ionized Calcium Urine WBC (Auto) 04/18/20 04/18/20 04/18/20 04:01 11:29 17:30 WBC RBC Hgb Hct MCV MCH RDW Plt Count Lymph % (Auto) [place] % (Auto) Lymph # (Auto) [place] # (Auto) Seg Neutrophils % Seg Neuts % (Manual) Lymphocytes % (Manual) Monocytes % (Manual) Basophils % (Manual) Seg Neutrophils # Seg Neutrophils # Man Lymphocytes # (Manual) Monocytes # (Manual) Eosinophils # (Manual) Basophils # (Manual) PT INR D-Dimer ABG pH POC ABG pCO2 POC ABG pO2 ABG pO2 ABG HCO3 ABG O2 Saturation ABG Base Excess ABG Hemoglobin ABG Oxyhemoglobin ABG Potassium ABG Glucose Oxyhemoglobin Carboxyhemoglobin Sodium Potassium Chloride 97.0 L Carbon Dioxide 38 H BUN Creatinine < 0.2 L Glucose 117 H POC Glucose 136 H 107 H Calcium Ferritin Total Bilirubin Alkaline Phosphatase Lactate Dehydrogenase Total Creatine Kinase CK-MB (CK-2) Rel Index Troponin T C-Reactive Protein Total Protein Albumin Prealbumin LDL Cholesterol Direct HDL Cholesterol Arterial Blood Glucose Arterial Blood Ionized Calcium Urine WBC (Auto) 04/18/20 04/19/20 04/19/20 23:19 06:51 06:51 WBC 12.2 H RBC Hgb 9.8 L Hct 31.1 L MCV 82 L MCH 26 L RDW 17.2 H Plt Count 549 H Lymph % (Auto) 6.5 L [place] % (Auto) Lymph # (Auto) 0.8 L [place] # (Auto) Seg Neutrophils % 86.7 H Seg Neuts % (Manual) Lymphocytes % (Manual) Monocytes % (Manual) Basophils % (Manual) Seg Neutrophils # 10.6 H Seg Neutrophils # Man Lymphocytes # (Manual) Monocytes # (Manual) Eosinophils # (Manual) Basophils # (Manual) PT INR D-Dimer ABG pH POC ABG pCO2 POC ABG pO2 ABG pO2 ABG HCO3 ABG O2 Saturation ABG Base Excess ABG Hemoglobin ABG Oxyhemoglobin ABG Potassium ABG Glucose Oxyhemoglobin Carboxyhemoglobin Sodium Potassium Chloride 97.8 L Carbon Dioxide 38 H BUN Creatinine < 0.2 L Glucose 123 H POC Glucose 127 H Calcium Ferritin Total Bilirubin Alkaline Phosphatase Lactate Dehydrogenase Total Creatine Kinase CK-MB (CK-2) Rel Index Troponin T C-Reactive Protein Total Protein Albumin Prealbumin LDL Cholesterol Direct HDL Cholesterol Arterial Blood Glucose Arterial Blood Ionized Calcium Urine WBC (Auto) 04/19/20 04/19/20 04/20/20 13:41 18:33 05:56 WBC RBC Hgb Hct MCV MCH RDW Plt Count Lymph % (Auto) [place] % (Auto) Lymph # (Auto) [place] # (Auto) Seg Neutrophils % Seg Neuts % (Manual) Lymphocytes % (Manual) Monocytes % (Manual) Basophils % (Manual) Seg Neutrophils # Seg Neutrophils # Man Lymphocytes # (Manual) Monocytes # (Manual) Eosinophils # (Manual) Basophils # (Manual) PT INR D-Dimer ABG pH POC ABG pCO2 POC ABG pO2 ABG pO2 ABG HCO3 ABG O2 Saturation ABG Base Excess ABG Hemoglobin ABG Oxyhemoglobin ABG Potassium ABG Glucose Oxyhemoglobin Carboxyhemoglobin Sodium Potassium Chloride Carbon Dioxide BUN Creatinine Glucose POC Glucose 116 H 124 H 130 H Calcium Ferritin Total Bilirubin Alkaline Phosphatase Lactate Dehydrogenase Total Creatine Kinase CK-MB (CK-2) Rel Index Troponin T C-Reactive Protein Total Protein Albumin Prealbumin LDL Cholesterol Direct HDL Cholesterol Arterial Blood Glucose Arterial Blood Ionized Calcium Urine WBC (Auto) 04/20/20 04/20/20 04/20/20 06:28 06:28 11:46 WBC RBC Hgb 10.2 L Hct 31.5 L MCV 82 L MCH 27 L RDW 17.1 H Plt Count 546 H Lymph % (Auto) 10.0 L [place] % (Auto) 9.8 H Lymph # (Auto) 1.1 L [place] # (Auto) 1.1 H Seg Neutrophils % 78.4 H Seg Neuts % (Manual) Lymphocytes % (Manual) Monocytes % (Manual) Basophils % (Manual) Seg Neutrophils # 8.5 H Seg Neutrophils # Man Lymphocytes # (Manual) Monocytes # (Manual) Eosinophils # (Manual) Basophils # (Manual) PT INR D-Dimer ABG pH POC ABG pCO2 POC ABG pO2 ABG pO2 ABG HCO3 ABG O2 Saturation ABG Base Excess ABG Hemoglobin ABG Oxyhemoglobin ABG Potassium ABG Glucose Oxyhemoglobin Carboxyhemoglobin Sodium Potassium Chloride 97.0 L Carbon Dioxide 38 H BUN Creatinine < 0.2 L Glucose 138 H POC Glucose 130 H Calcium Ferritin Total Bilirubin Alkaline Phosphatase Lactate Dehydrogenase Total Creatine Kinase CK-MB (CK-2) Rel Index Troponin T C-Reactive Protein Total Protein Albumin Prealbumin LDL Cholesterol Direct HDL Cholesterol Arterial Blood Glucose Arterial Blood Ionized Calcium Urine WBC (Auto) 04/20/20 04/21/20 04/21/20 23:31 05:55 05:55 WBC RBC Hgb 10.0 L Hct 31.1 L MCV 82 L MCH 26 L RDW 17.0 H Plt Count 535 H Lymph % (Auto) [place] % (Auto) 9.2 H Lymph # (Auto) 1.1 L [place] # (Auto) Seg Neutrophils % 75.4 H Seg Neuts % (Manual) Lymphocytes % (Manual) Monocytes % (Manual) Basophils % (Manual) Seg Neutrophils # Seg Neutrophils # Man Lymphocytes # (Manual) Monocytes # (Manual) Eosinophils # (Manual) Basophils # (Manual) PT INR D-Dimer ABG pH POC ABG pCO2 POC ABG pO2 ABG pO2 ABG HCO3 ABG O2 Saturation ABG Base Excess ABG Hemoglobin ABG Oxyhemoglobin ABG Potassium ABG Glucose Oxyhemoglobin Carboxyhemoglobin Sodium Potassium Chloride 95.0 L Carbon Dioxide 34 H BUN Creatinine < 0.2 L Glucose 125 H POC Glucose 116 H Calcium Ferritin Total Bilirubin Alkaline Phosphatase Lactate Dehydrogenase Total Creatine Kinase CK-MB (CK-2) Rel Index Troponin T C-Reactive Protein Total Protein Albumin Prealbumin LDL Cholesterol Direct HDL Cholesterol Arterial Blood Glucose Arterial Blood Ionized Calcium Urine WBC (Auto) 04/22/20 04/22/20 04/22/20 00:01 07:45 07:45 WBC RBC Hgb 10.0 L Hct 30.7 L MCV 81 L MCH 27 L RDW 17.1 H Plt Count 490 H Lymph % (Auto) [place] % (Auto) Lymph # (Auto) [place] # (Auto) Seg Neutrophils % Seg Neuts % (Manual) 75.0 H Lymphocytes % (Manual) 11.0 L Monocytes % (Manual) 9.0 H Basophils % (Manual) Seg Neutrophils # Seg Neutrophils # Man Lymphocytes # (Manual) 0.8 L Monocytes # (Manual) Eosinophils # (Manual) Basophils # (Manual) PT INR D-Dimer ABG pH POC ABG pCO2 POC ABG pO2 ABG pO2 ABG HCO3 ABG O2 Saturation ABG Base Excess ABG Hemoglobin ABG Oxyhemoglobin ABG Potassium ABG Glucose Oxyhemoglobin Carboxyhemoglobin Sodium Potassium Chloride 96.3 L Carbon Dioxide 40 H BUN Creatinine < 0.2 L Glucose 109 H POC Glucose 110 H Calcium Ferritin Total Bilirubin Alkaline Phosphatase Lactate Dehydrogenase Total Creatine Kinase CK-MB (CK-2) Rel Index Troponin T C-Reactive Protein Total Protein Albumin Prealbumin LDL Cholesterol Direct HDL Cholesterol Arterial Blood Glucose Arterial Blood Ionized Calcium Urine WBC (Auto) 04/23/20 04/23/20 04/23/20 04:28 04:28 04:28 WBC RBC 3.64 L Hgb 9.7 L Hct 29.4 L MCV 81 L MCH 27 L RDW 17.2 H Plt Count 527 H Lymph % (Auto) [place] % (Auto) 8.9 H Lymph # (Auto) [place] # (Auto) Seg Neutrophils % Seg Neuts % (Manual) Lymphocytes % (Manual) Monocytes % (Manual) Basophils % (Manual) Seg Neutrophils # Seg Neutrophils # Man Lymphocytes # (Manual) Monocytes # (Manual) Eosinophils # (Manual) Basophils # (Manual) PT INR D-Dimer ABG pH POC ABG pCO2 POC ABG pO2 ABG pO2 ABG HCO3 ABG O2 Saturation ABG Base Excess ABG Hemoglobin ABG Oxyhemoglobin ABG Potassium ABG Glucose Oxyhemoglobin Carboxyhemoglobin Sodium Potassium Chloride 96.4 L Carbon Dioxide 32 H D BUN Creatinine < 0.2 L Glucose 134 H POC Glucose Calcium Ferritin Total Bilirubin Alkaline Phosphatase Lactate Dehydrogenase Total Creatine Kinase CK-MB (CK-2) Rel Index Troponin T 0.151 H* C-Reactive Protein Total Protein Albumin Prealbumin LDL Cholesterol Direct HDL Cholesterol 29 L Arterial Blood Glucose Arterial Blood Ionized Calcium Urine WBC (Auto) 04/23/20 04/23/20 04/24/20 06:03 23:41 05:28 WBC RBC 3.56 L Hgb 9.5 L Hct 28.9 L MCV 81 L MCH 27 L RDW 17.4 H Plt Count 462 H Lymph % (Auto) [place] % (Auto) Lymph # (Auto) [place] # (Auto) Seg Neutrophils % Seg Neuts % (Manual) 80.0 H Lymphocytes % (Manual) Monocytes % (Manual) Basophils % (Manual) Seg Neutrophils # Seg Neutrophils # Man Lymphocytes # (Manual) Monocytes # (Manual) Eosinophils # (Manual) Basophils # (Manual) PT INR D-Dimer ABG pH POC ABG pCO2 POC ABG pO2 ABG pO2 ABG HCO3 ABG O2 Saturation ABG Base Excess ABG Hemoglobin ABG Oxyhemoglobin ABG Potassium ABG Glucose Oxyhemoglobin Carboxyhemoglobin Sodium Potassium Chloride Carbon Dioxide BUN Creatinine Glucose POC Glucose 132 H 117 H Calcium Ferritin Total Bilirubin Alkaline Phosphatase Lactate Dehydrogenase Total Creatine Kinase CK-MB (CK-2) Rel Index Troponin T C-Reactive Protein Total Protein Albumin Prealbumin LDL Cholesterol Direct HDL Cholesterol Arterial Blood Glucose Arterial Blood Ionized Calcium Urine WBC (Auto) 04/24/20 04/24/20 04/24/20 05:28 05:28 05:33 WBC RBC Hgb Hct MCV MCH RDW Plt Count Lymph % (Auto) [place] % (Auto) Lymph # (Auto) [place] # (Auto) Seg Neutrophils % Seg Neuts % (Manual) Lymphocytes % (Manual) Monocytes % (Manual) Basophils % (Manual) Seg Neutrophils # Seg Neutrophils # Man Lymphocytes # (Manual) Monocytes # (Manual) Eosinophils # (Manual) Basophils # (Manual) PT INR D-Dimer ABG pH POC ABG pCO2 POC ABG pO2 ABG pO2 ABG HCO3 ABG O2 Saturation ABG Base Excess ABG Hemoglobin ABG Oxyhemoglobin ABG Potassium ABG Glucose Oxyhemoglobin Carboxyhemoglobin Sodium Potassium Chloride 96.1 L Carbon Dioxide 40 H D BUN Creatinine < 0.2 L Glucose 115 H POC Glucose 109 H Calcium Ferritin Total Bilirubin Alkaline Phosphatase Lactate Dehydrogenase Total Creatine Kinase CK-MB (CK-2) Rel Index Troponin T 0.181 H* C-Reactive Protein Total Protein Albumin Prealbumin LDL Cholesterol Direct HDL Cholesterol Arterial Blood Glucose Arterial Blood Ionized Calcium Urine WBC (Auto) 04/24/20 04/24/20 04/25/20 11:17 18:23 00:12 WBC RBC Hgb Hct MCV MCH RDW Plt Count Lymph % (Auto) [place] % (Auto) Lymph # (Auto) [place] # (Auto) Seg Neutrophils % Seg Neuts % (Manual) Lymphocytes % (Manual) Monocytes % (Manual) Basophils % (Manual) Seg Neutrophils # Seg Neutrophils # Man Lymphocytes # (Manual) Monocytes # (Manual) Eosinophils # (Manual) Basophils # (Manual) PT INR D-Dimer ABG pH POC ABG pCO2 POC ABG pO2 ABG pO2 ABG HCO3 ABG O2 Saturation ABG Base Excess ABG Hemoglobin ABG Oxyhemoglobin ABG Potassium ABG Glucose Oxyhemoglobin Carboxyhemoglobin Sodium Potassium Chloride Carbon Dioxide BUN Creatinine Glucose POC Glucose 117 H 109 H 113 H Calcium Ferritin Total Bilirubin Alkaline Phosphatase Lactate Dehydrogenase Total Creatine Kinase CK-MB (CK-2) Rel Index Troponin T C-Reactive Protein Total Protein Albumin Prealbumin LDL Cholesterol Direct HDL Cholesterol Arterial Blood Glucose Arterial Blood Ionized Calcium Urine WBC (Auto) 04/25/20 04/25/20 04/25/20 06:34 06:34 11:28 WBC 11.7 H RBC Hgb 10.0 L Hct 31.7 L MCV 82 L MCH 26 L RDW 17.5 H Plt Count 564 H Lymph % (Auto) [place] % (Auto) Lymph # (Auto) [place] # (Auto) Seg Neutrophils % Seg Neuts % (Manual) 78.0 H Lymphocytes % (Manual) 10.0 L Monocytes % (Manual) 9.0 H Basophils % (Manual) Seg Neutrophils # Seg Neutrophils # Man 9.1 H Lymphocytes # (Manual) Monocytes # (Manual) 1.1 H Eosinophils # (Manual) Basophils # (Manual) PT INR D-Dimer ABG pH POC ABG pCO2 POC ABG pO2 ABG pO2 ABG HCO3 ABG O2 Saturation ABG Base Excess ABG Hemoglobin ABG Oxyhemoglobin ABG Potassium ABG Glucose Oxyhemoglobin Carboxyhemoglobin Sodium Potassium Chloride Carbon Dioxide 39 H BUN Creatinine < 0.2 L Glucose 103 H POC Glucose 112 H Calcium Ferritin Total Bilirubin Alkaline Phosphatase Lactate Dehydrogenase Total Creatine Kinase CK-MB (CK-2) Rel Index Troponin T C-Reactive Protein Total Protein Albumin Prealbumin LDL Cholesterol Direct HDL Cholesterol Arterial Blood Glucose Arterial Blood Ionized Calcium Urine WBC (Auto) 04/27/20 04/27/20 04/27/20 11:48 17:08 23:31 WBC RBC Hgb Hct MCV MCH RDW Plt Count Lymph % (Auto) [place] % (Auto) Lymph # (Auto) [place] # (Auto) Seg Neutrophils % Seg Neuts % (Manual) Lymphocytes % (Manual) Monocytes % (Manual) Basophils % (Manual) Seg Neutrophils # Seg Neutrophils # Man Lymphocytes # (Manual) Monocytes # (Manual) Eosinophils # (Manual) Basophils # (Manual) PT INR D-Dimer ABG pH POC ABG pCO2 POC ABG pO2 ABG pO2 ABG HCO3 ABG O2 Saturation ABG Base Excess ABG Hemoglobin ABG Oxyhemoglobin ABG Potassium ABG Glucose Oxyhemoglobin Carboxyhemoglobin Sodium Potassium Chloride Carbon Dioxide BUN Creatinine Glucose POC Glucose 124 H 118 H 122 H Calcium Ferritin Total Bilirubin Alkaline Phosphatase Lactate Dehydrogenase Total Creatine Kinase CK-MB (CK-2) Rel Index Troponin T C-Reactive Protein Total Protein Albumin Prealbumin LDL Cholesterol Direct HDL Cholesterol Arterial Blood Glucose Arterial Blood Ionized Calcium Urine WBC (Auto) 04/28/20 04/29/20 04/29/20 05:42 00:14 05:30 WBC RBC Hgb Hct MCV MCH RDW Plt Count Lymph % (Auto) [place] % (Auto) Lymph # (Auto) [place] # (Auto) Seg Neutrophils % Seg Neuts % (Manual) Lymphocytes % (Manual) Monocytes % (Manual) Basophils % (Manual) Seg Neutrophils # Seg Neutrophils # Man Lymphocytes # (Manual) Monocytes # (Manual) Eosinophils # (Manual) Basophils # (Manual) PT INR D-Dimer ABG pH POC ABG pCO2 POC ABG pO2 ABG pO2 ABG HCO3 ABG O2 Saturation ABG Base Excess ABG Hemoglobin ABG Oxyhemoglobin ABG Potassium ABG Glucose Oxyhemoglobin Carboxyhemoglobin Sodium Potassium Chloride Carbon Dioxide BUN Creatinine Glucose POC Glucose 122 H 115 H 123 H Calcium Ferritin Total Bilirubin Alkaline Phosphatase Lactate Dehydrogenase Total Creatine Kinase CK-MB (CK-2) Rel Index Troponin T C-Reactive Protein Total Protein Albumin Prealbumin LDL Cholesterol Direct HDL Cholesterol Arterial Blood Glucose Arterial Blood Ionized Calcium Urine WBC (Auto) 04/30/20 00:29 WBC RBC Hgb Hct MCV MCH RDW Plt Count Lymph % (Auto) [place] % (Auto) Lymph # (Auto) [place] # (Auto) Seg Neutrophils % Seg Neuts % (Manual) Lymphocytes % (Manual) Monocytes % (Manual) Basophils % (Manual) Seg Neutrophils # Seg Neutrophils # Man Lymphocytes # (Manual) Monocytes # (Manual) Eosinophils # (Manual) Basophils # (Manual) PT INR D-Dimer ABG pH POC ABG pCO2 POC ABG pO2 ABG pO2 ABG HCO3 ABG O2 Saturation ABG Base Excess ABG Hemoglobin ABG Oxyhemoglobin ABG Potassium ABG Glucose Oxyhemoglobin Carboxyhemoglobin Sodium Potassium Chloride Carbon Dioxide BUN Creatinine Glucose POC Glucose 106 H Calcium Ferritin Total Bilirubin Alkaline Phosphatase Lactate Dehydrogenase Total Creatine Kinase CK-MB (CK-2) Rel Index Troponin T C-Reactive Protein Total Protein Albumin Prealbumin LDL Cholesterol Direct HDL Cholesterol Arterial Blood Glucose Arterial Blood Ionized Calcium Urine WBC (Auto) Allied health notes reviewed: nursing
[2020-04-30] MEDS: ZOLPIDEM 5 MG TAB PO PRN (22:51)
[2020-04-30] MEDS: SENNOSIDES 8.6 MG TAB PO SCH (22:52)
[2020-04-30] MEDS: ENOXAPARIN 40 MG/0.4 ML INJ SUB-Q SCH (22:53)
[2020-05-01] MEDS: traMADol 50 MG TAB PO PRN ×2 (00:31→16:59)
[2020-05-01] MEDS: MORPHINE 2 MG/1 ML INJ IV PRN ×4 (06:55→22:29)
[2020-05-01] MEDS: ALPRAZolam 0.5 MG TAB PO PRN ×2 (06:56→19:40)
[2020-05-01] MEDS: PREGABALIN 75 MG CAP PO SCH ×2 (10:24→22:33)
[2020-05-01] MEDS: TAMSULOSIN 0.4 MG CAP PO SCH (10:24)
[2020-05-01] MEDS: LANSOPRAZOLE 30 MG SOLUTAB FEEDTUBE SCH (10:24)
[2020-05-01] MEDS: METOPROLOL TARTRATE 25 MG TAB PO SCH ×2 (10:24→22:32)
[2020-05-01] MEDS: DOCUSATE SODIUM 100 MG/10 ML ORAL LIQD FEEDTUBE SCH ×2 (10:24→22:31)
[2020-05-01] MEDS: ASPIRIN EC 81 MG TAB PO SCH (10:24)
[2020-05-01] MEDS: LIDOCAINE 5% 1 EACH PATCH TD SCH (10:25)
[2020-05-01] MEDS: BACLOFEN 10 MG TAB PO SCH ×2 (10:25→22:32)
[2020-05-01] MEDS: SODIUM HYPOCHLORITE, DAKIN'S 1/2 STRENGTH (0.25%) 473 ML TOPICAL SOLN TP SCH ×2 (10:26→22:31)
[2020-05-01] MEDS: GLYCOPYRROLATE 1 MG TAB PO SCH ×3 (10:31→19:38)
[2020-05-01] MEDS: MAGIC MOUTHWASH 30ML PO SCH ×3 (10:32→19:39)
--- NOTE | 2020-05-01 13:56 | Progress Note ---
Assessment and Plan Patient Awake. Patient undergoing spontaneous breathing trial, Pressure support 10, FIO2 30%, PEEP 6 and O2 saturation running 96%. Recommend Continue spontaneous breathing trials as tolerated.Respiratory therapy told me, Patient Not tolearing T tube trial that was tried few days ago. Decreasing pressure support to 5.Patient afebrile and has leukocytosis. Chest xray done 04/15/20 reported mild basilar airspace opacities which likely represent atelectasis but could represent an evolving pneumonia. If patient running fever, recommend to place him on antibiotics like zosyn. Repeating chest xray . - Patient Problems (1) Acute on chronic respiratory failure with hypoxia and hypercapnia Current Visit: Yes Status: Acute Plan to address problem: Patient is on Pressure support mechanical ventilation, Pressure support 5, F IO2 30%, PEEP 6. Albuterol inhaler 2 puffs po qid. Continue S/C Lovenox. Continue prevacid. Recommend T tube trials as tolerated. (2) Bleeding from wound Current Visit: Yes Status: Acute Plan to address problem: Management primary care , surgery and wound care. (3) Elevated d-dimer Current Visit: Yes Status: Acute Plan to address problem: Patients venous doppler studies of legs, CTA chest reported Negative for VTE. Patient is on S/C Lovenox 40 mg qd. (4) Elevated troponin Current Visit: Yes Status: Acute Plan to address problem: Management as per primary care and cardiology (5) NSTEMI (non-ST elevated myocardial infarction) Current Visit: Yes Status: Acute Plan to address problem: Management as per cardiology. (6) Pneumonia Current Visit: Yes Status: Acute Qualifiers: Laterality: bilateral Plan to address problem: Patient was treated with ceftriaxone, zosyn and zithromax. Patient afebrile . Has mild leukocytosis. Chest xray done 04/15/20 reported mild basilar airspace opacities which likely represent atelectasis but could represent an evolving pneumonia. If patient run lea fever, recommend to place him back on antibiotics like zosyn. Repeating chest xray. Subjective Date of service: 05/01/20 Principal diagnosis: Ac on Ch Hypercapnic & hypoxemic Resp Failure; Severe Sepsis; Jamar PNA; ALS Interval history: Patient Awake. Patient undergoing spontaneous breathing trial, Pressure support 10, FIO2 30%, PEEP 6 and O2 saturation running 96%. Recommend Continue spontaneous breathing trials as tolerated.Respiratory therapy told me, Patient Not tolearing T tube trial that was tried few days ago. Decreasing pressure support to 5.Patient afebrile and has leukocytosis. Chest xray done 04/15/20 reported mild basilar airspace opacities which likely represent atelectasis but could represent an evolving pneumonia. If patient running fever, recommend to place him on antibiotics like zosyn. Repeating chest xray . Objective Vital Signs - 12hr 05/01/20 05/01/20 05/01/20 02:00 03:00 03:07 Temperature Pulse Rate 99 H 99 H 102 H Pulse Rate [ From Monitor] Respiratory 12 10 L Rate Blood Pressure 108/72 105/75 O2 Sat by Pulse Oximetry O2 Sat by Pulse Oximetry [ Assessment] 05/01/20 05/01/20 05/01/20 03:24 04:00 04:50 Temperature 98.2 F Pulse Rate 105 H 110 H Pulse Rate [ From Monitor] Respiratory 13 Rate Blood Pressure 109/69 114/73 O2 Sat by Pulse 96 99 Oximetry O2 Sat by Pulse 97 Oximetry [ Assessment] 05/01/20 05/01/20 05/01/20 05:00 06:00 06:55 Temperature Pulse Rate 105 H 110 H Pulse Rate [ From Monitor] Respiratory 11 L 14 12 Rate Blood Pressure 118/72 110/73 O2 Sat by Pulse 96 99 Oximetry O2 Sat by Pulse Oximetry [ Assessment] 05/01/20 05/01/20 05/01/20 07:00 08:00 09:00 Temperature 98.6 F Pulse Rate 109 H 99 H 104 H Pulse Rate [ 110 H From Monitor] Respiratory 17 10 L 12 Rate Blood Pressure 114/75 113/73 O2 Sat by Pulse 98 98 97 Oximetry O2 Sat by Pulse Oximetry [ Assessment] 05/01/20 05/01/20 05/01/20 09:33 10:24 12:24 Temperature Pulse Rate 110 H 108 H 101 H Pulse Rate [ From Monitor] Respiratory 18 20 Rate Blood Pressure 115/76 114/74 105/73 O2 Sat by Pulse 99 99 Oximetry O2 Sat by Pulse Oximetry [ Assessment] Constitutional: no acute distress, alert, asleep, other (thin middle aged male with normal respiratory effort at rest on MVS) Eyes: non-icteric ENT: oropharynx moist, other (S/P Tracheostomy) Neck: supple, no lymphadenopathy, no JVD Effort: mildly labored Ascultation: Bilateral: diminished breath sounds, wheezes, rhonchi Percussion: Bilateral: not dull Cardiovascular: regular rate and rhythm, other (S1,S2, no murmurs) Gastrointestinal: normoactive bowel sounds, soft, non-tender, non-distended, other (+ distended but non tender suprapubis) Integumentary: normal, decubitus ulcer (sacral / gluteal) Extremities: no cyanosis, no edema, pulses normal, other (atrophic looking limbs) Neurologic: pupils equal and round, other (motor strength in extremities 1-2/5, awake, alert, mouths words to make needs known) Psychiatric: mood appropriate, affect normal CBC and BMP: 04/25/20 06:34 04/25/20 06:34 ABG, PT/INR, D-dimer: ABG ABG pH 7.371 (7.320-7.450) 03/08/20 12:34 POC ABG pCO2 63.1 mmHg (32.0-48.0) H 03/08/20 12:34 ABG pCO2 60.1 mm Hg 03/06/20 04:34 POC ABG pO2 90.5 mmHg (83-108) 03/08/20 12:34 ABG pO2 88.6 mm Hg (80.0-90.0) 03/06/20 04:34 POC ABG HCO3 35.7 03/08/20 12:34 ABG O2 Saturation 97.0 % (95.0-99.0) 03/06/20 04:34 PT/INR, D-dimer PT 15.6 Sec. (12.2-14.9) H 02/24/20 09:19 INR 1.21 (0.87-1.13) H 02/24/20 09:19 D-Dimer 1311.96 ng/mlDDU (0-234) H 02/24/20 09:19 Abnormal lab findings: Abnormal Labs 02/24/20 02/24/20 02/24/20 09:19 09:19 09:19 WBC 20.2 H RBC 5.05 H Hgb Hct MCV MCH RDW 15.3 H Plt Count Lymph % (Auto) [place] % (Auto) Lymph # (Auto) [place] # (Auto) Seg Neutrophils % Seg Neuts % (Manual) 86.0 H Lymphocytes % (Manual) 1.0 L Monocytes % (Manual) Basophils % (Manual) Seg Neutrophils # Seg Neutrophils # Man 17.4 H Lymphocytes # (Manual) 0.2 L Monocytes # (Manual) Eosinophils # (Manual) Basophils # (Manual) PT 15.6 H INR 1.21 H D-Dimer 1311.96 H ABG pH POC ABG pCO2 POC ABG pO2 ABG pO2 ABG HCO3 ABG O2 Saturation ABG Base Excess ABG Hemoglobin ABG Oxyhemoglobin ABG Potassium ABG Glucose Oxyhemoglobin Carboxyhemoglobin Sodium 135 L Potassium 3.2 L Chloride 92.2 L Carbon Dioxide BUN 6 L Creatinine < 0.2 L Glucose 124 H POC Glucose Calcium Ferritin Total Bilirubin 2.30 H Alkaline Phosphatase 132 H Lactate Dehydrogenase Total Creatine Kinase CK-MB (CK-2) Rel Index Troponin T 0.080 H C-Reactive Protein Total Protein Albumin 3.6 L Prealbumin LDL Cholesterol Direct 41 L HDL Cholesterol Arterial Blood Glucose Arterial Blood Ionized Calcium Urine WBC (Auto) 02/24/20 02/24/20 02/24/20 09:19 09:58 10:01 WBC RBC Hgb Hct MCV MCH RDW Plt Count Lymph % (Auto) [place] % (Auto) Lymph # (Auto) [place] # (Auto) Seg Neutrophils % Seg Neuts % (Manual) Lymphocytes % (Manual) Monocytes % (Manual) Basophils % (Manual) Seg Neutrophils # Seg Neutrophils # Man Lymphocytes # (Manual) Monocytes # (Manual) Eosinophils # (Manual) Basophils # (Manual) PT INR D-Dimer ABG pH 7.176 L* POC ABG pCO2 POC ABG pO2 ABG pO2 91.2 H ABG HCO3 ABG O2 Saturation ABG Base Excess -4.6 L ABG Hemoglobin ABG Oxyhemoglobin ABG Potassium ABG Glucose Oxyhemoglobin 92.6 L Carboxyhemoglobin Sodium Potassium Chloride Carbon Dioxide BUN Creatinine Glucose POC Glucose Calcium Ferritin 1715.0 H Total Bilirubin Alkaline Phosphatase Lactate Dehydrogenase 303 H Total Creatine Kinase CK-MB (CK-2) Rel Index Troponin T C-Reactive Protein 26.10 H Total Protein Albumin Prealbumin LDL Cholesterol Direct HDL Cholesterol Arterial Blood Glucose Arterial Blood Ionized Calcium Urine WBC (Auto) 02/24/20 02/24/20 02/24/20 11:52 13:45 19:35 WBC RBC Hgb Hct MCV MCH RDW Plt Count Lymph % (Auto) [place] % (Auto) Lymph # (Auto) [place] # (Auto) Seg Neutrophils % Seg Neuts % (Manual) Lymphocytes % (Manual) Monocytes % (Manual) Basophils % (Manual) Seg Neutrophils # Seg Neutrophils # Man Lymphocytes # (Manual) Monocytes # (Manual) Eosinophils # (Manual) Basophils # (Manual) PT INR D-Dimer ABG pH 7.051 L* 7.300 L POC ABG pCO2 POC ABG pO2 ABG pO2 94.7 H 75.1 L ABG HCO3 18.0 L ABG O2 Saturation 93.5 L ABG Base Excess -6.8 L -7.8 L ABG Hemoglobin 13.2 L 11.9 L ABG Oxyhemoglobin ABG Potassium ABG Glucose Oxyhemoglobin 91.0 L 92.7 L Carboxyhemoglobin Sodium Potassium Chloride Carbon Dioxide BUN Creatinine Glucose POC Glucose Calcium Ferritin Total Bilirubin Alkaline Phosphatase Lactate Dehydrogenase Total Creatine Kinase CK-MB (CK-2) Rel Index Troponin T 0.034 H D C-Reactive Protein Total Protein Albumin Prealbumin LDL Cholesterol Direct HDL Cholesterol Arterial Blood Glucose Arterial Blood Ionized Calcium Urine WBC (Auto) 02/25/20 02/25/20 02/25/20 04:00 04:00 12:26 WBC 22.9 H RBC Hgb Hct MCV 83 L MCH 27 L RDW Plt Count 468 H Lymph % (Auto) [place] % (Auto) Lymph # (Auto) [place] # (Auto) Seg Neutrophils % Seg Neuts % (Manual) 89.0 H Lymphocytes % (Manual) 7.0 L Monocytes % (Manual) Basophils % (Manual) Seg Neutrophils # Seg Neutrophils # Man 20.4 H Lymphocytes # (Manual) Monocytes # (Manual) Eosinophils # (Manual) Basophils # (Manual) PT INR D-Dimer ABG pH POC ABG pCO2 POC ABG pO2 ABG pO2 ABG HCO3 ABG O2 Saturation ABG Base Excess ABG Hemoglobin ABG Oxyhemoglobin ABG Potassium 2.6 L ABG Glucose 142 H Oxyhemoglobin Carboxyhemoglobin Sodium Potassium 3.2 L Chloride Carbon Dioxide 18 L BUN Creatinine 0.2 L Glucose 114 H POC Glucose Calcium Ferritin Total Bilirubin Alkaline Phosphatase Lactate Dehydrogenase Total Creatine Kinase CK-MB (CK-2) Rel Index Troponin T C-Reactive Protein Total Protein Albumin 3.5 L Prealbumin LDL Cholesterol Direct HDL Cholesterol Arterial Blood Glucose 142 H Arterial Blood Ionized Calcium Urine WBC (Auto) 02/26/20 02/26/20 02/26/20 15:58 17:00 23:43 WBC RBC Hgb Hct MCV MCH RDW Plt Count Lymph % (Auto) [place] % (Auto) Lymph # (Auto) [place] # (Auto) Seg Neutrophils % Seg Neuts % (Manual) Lymphocytes % (Manual) Monocytes % (Manual) Basophils % (Manual) Seg Neutrophils # Seg Neutrophils # Man Lymphocytes # (Manual) Monocytes # (Manual) Eosinophils # (Manual) Basophils # (Manual) PT INR D-Dimer ABG pH 7.502 H POC ABG pCO2 POC ABG pO2 213.6 H ABG pO2 ABG HCO3 ABG O2 Saturation ABG Base Excess ABG Hemoglobin ABG Oxyhemoglobin 99.2 H ABG Potassium 2.9 L ABG Glucose 160 H Oxyhemoglobin Carboxyhemoglobin 0.4 L Sodium Potassium Chloride Carbon Dioxide BUN Creatinine Glucose POC Glucose 189 H 120 H Calcium Ferritin Total Bilirubin Alkaline Phosphatase Lactate Dehydrogenase Total Creatine Kinase CK-MB (CK-2) Rel Index Troponin T C-Reactive Protein Total Protein Albumin Prealbumin LDL Cholesterol Direct HDL Cholesterol Arterial Blood Glucose 160 H Arterial Blood Ionized Calcium 4.5 L Urine WBC (Auto) 02/27/20 02/27/20 02/27/20 05:00 07:04 17:45 WBC RBC Hgb Hct MCV MCH RDW Plt Count Lymph % (Auto) [place] % (Auto) Lymph # (Auto) [place] # (Auto) Seg Neutrophils % Seg Neuts % (Manual) Lymphocytes % (Manual) Monocytes % (Manual) Basophils % (Manual) Seg Neutrophils # Seg Neutrophils # Man Lymphocytes # (Manual) Monocytes # (Manual) Eosinophils # (Manual) Basophils # (Manual) PT INR D-Dimer ABG pH 7.524 H POC ABG pCO2 POC ABG pO2 ABG pO2 ABG HCO3 ABG O2 Saturation ABG Base Excess ABG Hemoglobin ABG Oxyhemoglobin ABG Potassium 3.0 L ABG Glucose 143 H Oxyhemoglobin Carboxyhemoglobin Sodium Potassium Chloride Carbon Dioxide BUN Creatinine Glucose POC Glucose 154 H 175 H Calcium Ferritin Total Bilirubin Alkaline Phosphatase Lactate Dehydrogenase Total Creatine Kinase CK-MB (CK-2) Rel Index Troponin T C-Reactive Protein Total Protein Albumin Prealbumin LDL Cholesterol Direct HDL Cholesterol Arterial Blood Glucose 143 H Arterial Blood Ionized Calcium Urine WBC (Auto) 02/27/20 02/28/20 02/28/20 Unknown 00:21 04:15 WBC 18.7 H RBC Hgb Hct MCV MCH RDW Plt Count Lymph % (Auto) 8.7 L [place] % (Auto) Lymph # (Auto) [place] # (Auto) 1.2 H Seg Neutrophils % 84.6 H Seg Neuts % (Manual) Lymphocytes % (Manual) Monocytes % (Manual) Basophils % (Manual) Seg Neutrophils # 15.9 H Seg Neutrophils # Man Lymphocytes # (Manual) Monocytes # (Manual) Eosinophils # (Manual) Basophils # (Manual) PT INR D-Dimer ABG pH POC ABG pCO2 POC ABG pO2 ABG pO2 ABG HCO3 ABG O2 Saturation ABG Base Excess ABG Hemoglobin ABG Oxyhemoglobin ABG Potassium ABG Glucose Oxyhemoglobin Carboxyhemoglobin Sodium Potassium 2.9 L* Chloride Carbon Dioxide 33 H D BUN Creatinine < 0.2 L Glucose 157 H POC Glucose 134 H Calcium Ferritin Total Bilirubin Alkaline Phosphatase Lactate Dehydrogenase Total Creatine Kinase CK-MB (CK-2) Rel Index Troponin T C-Reactive Protein Total Protein Albumin Prealbumin LDL Cholesterol Direct HDL Cholesterol Arterial Blood Glucose Arterial Blood Ionized Calcium Urine WBC (Auto) 02/28/20 02/28/20 02/28/20 04:15 05:16 05:39 WBC RBC Hgb Hct MCV MCH RDW Plt Count Lymph % (Auto) [place] % (Auto) Lymph # (Auto) [place] # (Auto) Seg Neutrophils % Seg Neuts % (Manual) Lymphocytes % (Manual) Monocytes % (Manual) Basophils % (Manual) Seg Neutrophils # Seg Neutrophils # Man Lymphocytes # (Manual) Monocytes # (Manual) Eosinophils # (Manual) Basophils # (Manual) PT INR D-Dimer ABG pH POC ABG pCO2 POC ABG pO2 ABG pO2 142.9 H ABG HCO3 34.1 H ABG O2 Saturation ABG Base Excess 8.3 H ABG Hemoglobin ABG Oxyhemoglobin ABG Potassium ABG Glucose Oxyhemoglobin Carboxyhemoglobin Sodium 151 H Potassium Chloride Carbon Dioxide 32 H BUN Creatinine 0.2 L Glucose 167 H POC Glucose 138 H Calcium Ferritin Total Bilirubin Alkaline Phosphatase Lactate Dehydrogenase Total Creatine Kinase CK-MB (CK-2) Rel Index Troponin T C-Reactive Protein Total Protein Albumin Prealbumin LDL Cholesterol Direct HDL Cholesterol Arterial Blood Glucose Arterial Blood Ionized Calcium Urine WBC (Auto) 02/28/20 02/28/20 02/28/20 11:05 11:33 12:54 WBC RBC Hgb Hct MCV MCH RDW Plt Count Lymph % (Auto) [place] % (Auto) Lymph # (Auto) [place] # (Auto) Seg Neutrophils % Seg Neuts % (Manual) Lymphocytes % (Manual) Monocytes % (Manual) Basophils % (Manual) Seg Neutrophils # Seg Neutrophils # Man Lymphocytes # (Manual) Monocytes # (Manual) Eosinophils # (Manual) Basophils # (Manual) PT INR D-Dimer ABG pH POC ABG pCO2 POC ABG pO2 ABG pO2 ABG HCO3 ABG O2 Saturation ABG Base Excess ABG Hemoglobin ABG Oxyhemoglobin ABG Potassium ABG Glucose Oxyhemoglobin Carboxyhemoglobin Sodium Potassium Chloride Carbon Dioxide BUN Creatinine Glucose POC Glucose 160 H Calcium Ferritin Total Bilirubin Alkaline Phosphatase Lactate Dehydrogenase Total Creatine Kinase CK-MB (CK-2) Rel Index Troponin T C-Reactive Protein 4.70 H Total Protein Albumin Prealbumin 0.090 L LDL Cholesterol Direct HDL Cholesterol Arterial Blood Glucose Arterial Blood Ionized Calcium Urine WBC (Auto) 02/28/20 02/29/20 02/29/20 17:34 00:44 04:05 WBC 19.6 H RBC Hgb Hct MCV MCH 27 L RDW 15.4 H Plt Count Lymph % (Auto) [place] % (Auto) Lymph # (Auto) [place] # (Auto) Seg Neutrophils % Seg Neuts % (Manual) 86.0 H Lymphocytes % (Manual) 7.0 L Monocytes % (Manual) Basophils % (Manual) Seg Neutrophils # Seg Neutrophils # Man 16.9 H Lymphocytes # (Manual) Monocytes # (Manual) 1.2 H Eosinophils # (Manual) Basophils # (Manual) PT INR D-Dimer ABG pH POC ABG pCO2 POC ABG pO2 ABG pO2 ABG HCO3 ABG O2 Saturation ABG Base Excess ABG Hemoglobin ABG Oxyhemoglobin ABG Potassium ABG Glucose Oxyhemoglobin Carboxyhemoglobin Sodium Potassium Chloride Carbon Dioxide BUN Creatinine Glucose POC Glucose 136 H 156 H Calcium Ferritin Total Bilirubin Alkaline Phosphatase Lactate Dehydrogenase Total Creatine Kinase CK-MB (CK-2) Rel Index Troponin T C-Reactive Protein Total Protein Albumin Prealbumin LDL Cholesterol Direct HDL Cholesterol Arterial Blood Glucose Arterial Blood Ionized Calcium Urine WBC (Auto) 02/29/20 02/29/20 02/29/20 04:05 05:14 05:33 WBC RBC Hgb Hct MCV MCH RDW Plt Count Lymph % (Auto) [place] % (Auto) Lymph # (Auto) [place] # (Auto) Seg Neutrophils % Seg Neuts % (Manual) Lymphocytes % (Manual) Monocytes % (Manual) Basophils % (Manual) Seg Neutrophils # Seg Neutrophils # Man Lymphocytes # (Manual) Monocytes # (Manual) Eosinophils # (Manual) Basophils # (Manual) PT INR D-Dimer ABG pH POC ABG pCO2 54.3 H POC ABG pO2 124.8 H ABG pO2 ABG HCO3 ABG O2 Saturation ABG Base Excess ABG Hemoglobin ABG Oxyhemoglobin ABG Potassium ABG Glucose 185 H Oxyhemoglobin Carboxyhemoglobin Sodium 148 H Potassium Chloride Carbon Dioxide 33 H BUN Creatinine < 0.2 L Glucose 173 H POC Glucose 152 H Calcium Ferritin Total Bilirubin Alkaline Phosphatase Lactate Dehydrogenase Total Creatine Kinase CK-MB (CK-2) Rel Index Troponin T C-Reactive Protein Total Protein Albumin Prealbumin LDL Cholesterol Direct HDL Cholesterol Arterial Blood Glucose 185 H Arterial Blood Ionized Calcium Urine WBC (Auto) 03/01/20 03/01/20 03/01/20 00:00 03:45 04:33 WBC 23.1 H RBC Hgb Hct MCV MCH 27 L RDW 15.3 H Plt Count Lymph % (Auto) [place] % (Auto) Lymph # (Auto) [place] # (Auto) Seg Neutrophils % Seg Neuts % (Manual) 92.0 H Lymphocytes % (Manual) 6.0 L Monocytes % (Manual) Basophils % (Manual) Seg Neutrophils # Seg Neutrophils # Man 21.3 H Lymphocytes # (Manual) Monocytes # (Manual) Eosinophils # (Manual) 0.5 H Basophils # (Manual) PT INR D-Dimer ABG pH 7.492 H POC ABG pCO2 POC ABG pO2 ABG pO2 157.1 H ABG HCO3 32.3 H ABG O2 Saturation ABG Base Excess 8.1 H ABG Hemoglobin 13.2 L ABG Oxyhemoglobin ABG Potassium ABG Glucose Oxyhemoglobin Carboxyhemoglobin Sodium Potassium Chloride Carbon Dioxide BUN Creatinine Glucose POC Glucose 109 H Calcium Ferritin Total Bilirubin Alkaline Phosphatase Lactate Dehydrogenase Total Creatine Kinase CK-MB (CK-2) Rel Index Troponin T C-Reactive Protein Total Protein Albumin Prealbumin LDL Cholesterol Direct HDL Cholesterol Arterial Blood Glucose Arterial Blood Ionized Calcium Urine WBC (Auto) 03/01/20 03/01/20 03/01/20 04:33 05:29 12:32 WBC RBC Hgb Hct MCV MCH RDW Plt Count Lymph % (Auto) [place] % (Auto) Lymph # (Auto) [place] # (Auto) Seg Neutrophils % Seg Neuts % (Manual) Lymphocytes % (Manual) Monocytes % (Manual) Basophils % (Manual) Seg Neutrophils # Seg Neutrophils # Man Lymphocytes # (Manual) Monocytes # (Manual) Eosinophils # (Manual) Basophils # (Manual) PT INR D-Dimer ABG pH POC ABG pCO2 POC ABG pO2 ABG pO2 ABG HCO3 ABG O2 Saturation ABG Base Excess ABG Hemoglobin ABG Oxyhemoglobin ABG Potassium ABG Glucose Oxyhemoglobin Carboxyhemoglobin Sodium 146 H Potassium Chloride Carbon Dioxide 32 H BUN Creatinine < 0.2 L Glucose 120 H POC Glucose 120 H 128 H Calcium Ferritin Total Bilirubin Alkaline Phosphatase Lactate Dehydrogenase Total Creatine Kinase CK-MB (CK-2) Rel Index Troponin T C-Reactive Protein Total Protein Albumin Prealbumin LDL Cholesterol Direct HDL Cholesterol Arterial Blood Glucose Arterial Blood Ionized Calcium Urine WBC (Auto) 03/01/20 03/01/20 03/02/20 17:38 23:46 06:13 WBC RBC Hgb Hct MCV MCH RDW Plt Count Lymph % (Auto) [place] % (Auto) Lymph # (Auto) [place] # (Auto) Seg Neutrophils % Seg Neuts % (Manual) Lymphocytes % (Manual) Monocytes % (Manual) Basophils % (Manual) Seg Neutrophils # Seg Neutrophils # Man Lymphocytes # (Manual) Monocytes # (Manual) Eosinophils # (Manual) Basophils # (Manual) PT INR D-Dimer ABG pH POC ABG pCO2 POC ABG pO2 ABG pO2 ABG HCO3 ABG O2 Saturation ABG Base Excess ABG Hemoglobin ABG Oxyhemoglobin ABG Potassium ABG Glucose Oxyhemoglobin Carboxyhemoglobin Sodium Potassium Chloride Carbon Dioxide BUN Creatinine Glucose POC Glucose 114 H 121 H 120 H Calcium Ferritin Total Bilirubin Alkaline Phosphatase Lactate Dehydrogenase Total Creatine Kinase CK-MB (CK-2) Rel Index Troponin T C-Reactive Protein Total Protein Albumin Prealbumin LDL Cholesterol Direct HDL Cholesterol Arterial Blood Glucose Arterial Blood Ionized Calcium Urine WBC (Auto) 03/02/20 03/02/20 03/03/20 09:47 09:47 10:21 WBC 23.6 H RBC Hgb Hct MCV MCH RDW 15.3 H Plt Count 494 H Lymph % (Auto) [place] % (Auto) Lymph # (Auto) [place] # (Auto) Seg Neutrophils % Seg Neuts % (Manual) 85.0 H Lymphocytes % (Manual) 6.0 L Monocytes % (Manual) Basophils % (Manual) Seg Neutrophils # Seg Neutrophils # Man 20.1 H Lymphocytes # (Manual) Monocytes # (Manual) 1.7 H Eosinophils # (Manual) Basophils # (Manual) PT INR D-Dimer ABG pH POC ABG pCO2 POC ABG pO2 ABG pO2 ABG HCO3 ABG O2 Saturation ABG Base Excess ABG Hemoglobin ABG Oxyhemoglobin ABG Potassium 3.3 L ABG Glucose 158 H Oxyhemoglobin Carboxyhemoglobin Sodium Potassium Chloride Carbon Dioxide BUN Creatinine < 0.2 L Glucose 177 H POC Glucose Calcium Ferritin Total Bilirubin Alkaline Phosphatase Lactate Dehydrogenase Total Creatine Kinase CK-MB (CK-2) Rel Index Troponin T C-Reactive Protein Total Protein Albumin Prealbumin LDL Cholesterol Direct HDL Cholesterol Arterial Blood Glucose 158 H Arterial Blood Ionized Calcium Urine WBC (Auto) 03/03/20 03/04/20 03/04/20 21:30 00:00 12:23 WBC RBC Hgb Hct MCV MCH RDW Plt Count Lymph % (Auto) [place] % (Auto) Lymph # (Auto) [place] # (Auto) Seg Neutrophils % Seg Neuts % (Manual) Lymphocytes % (Manual) Monocytes % (Manual) Basophils % (Manual) Seg Neutrophils # Seg Neutrophils # Man Lymphocytes # (Manual) Monocytes # (Manual) Eosinophils # (Manual) Basophils # (Manual) PT INR D-Dimer ABG pH 7.328 L POC ABG pCO2 POC ABG pO2 ABG pO2 68.4 L ABG HCO3 35.0 H ABG O2 Saturation 93.9 L ABG Base Excess 6.8 H ABG Hemoglobin 12.7 L ABG Oxyhemoglobin ABG Potassium ABG Glucose Oxyhemoglobin 91.9 L Carboxyhemoglobin Sodium Potassium Chloride Carbon Dioxide BUN Creatinine Glucose POC Glucose 187 H 163 H Calcium Ferritin Total Bilirubin Alkaline Phosphatase Lactate Dehydrogenase Total Creatine Kinase CK-MB (CK-2) Rel Index Troponin T C-Reactive Protein Total Protein Albumin Prealbumin LDL Cholesterol Direct HDL Cholesterol Arterial Blood Glucose Arterial Blood Ionized Calcium Urine WBC (Auto) 03/04/20 03/04/20 03/05/20 18:15 21:30 06:02 WBC RBC Hgb Hct MCV MCH RDW Plt Count Lymph % (Auto) [place] % (Auto) Lymph # (Auto) [place] # (Auto) Seg Neutrophils % Seg Neuts % (Manual) Lymphocytes % (Manual) Monocytes % (Manual) Basophils % (Manual) Seg Neutrophils # Seg Neutrophils # Man Lymphocytes # (Manual) Monocytes # (Manual) Eosinophils # (Manual) Basophils # (Manual) PT INR D-Dimer ABG pH 7.297 L POC ABG pCO2 POC ABG pO2 ABG pO2 ABG HCO3 41.0 H ABG O2 Saturation ABG Base Excess 11.0 H ABG Hemoglobin 13.1 L ABG Oxyhemoglobin ABG Potassium ABG Glucose Oxyhemoglobin 94.5 L Carboxyhemoglobin Sodium Potassium Chloride Carbon Dioxide BUN Creatinine Glucose POC Glucose 192 H 127 H Calcium Ferritin Total Bilirubin Alkaline Phosphatase Lactate Dehydrogenase Total Creatine Kinase CK-MB (CK-2) Rel Index Troponin T C-Reactive Protein Total Protein Albumin Prealbumin LDL Cholesterol Direct HDL Cholesterol Arterial Blood Glucose Arterial Blood Ionized Calcium Urine WBC (Auto) 03/05/20 03/05/20 03/06/20 12:09 16:42 00:24 WBC RBC Hgb Hct MCV MCH RDW Plt Count Lymph % (Auto) [place] % (Auto) Lymph # (Auto) [place] # (Auto) Seg Neutrophils % Seg Neuts % (Manual) Lymphocytes % (Manual) Monocytes % (Manual) Basophils % (Manual) Seg Neutrophils # Seg Neutrophils # Man Lymphocytes # (Manual) Monocytes # (Manual) Eosinophils # (Manual) Basophils # (Manual) PT INR D-Dimer ABG pH POC ABG pCO2 POC ABG pO2 ABG pO2 ABG HCO3 ABG O2 Saturation ABG Base Excess ABG Hemoglobin ABG Oxyhemoglobin ABG Potassium ABG Glucose Oxyhemoglobin Carboxyhemoglobin Sodium Potassium Chloride Carbon Dioxide BUN Creatinine Glucose POC Glucose 147 H 114 H 134 H Calcium Ferritin Total Bilirubin Alkaline Phosphatase Lactate Dehydrogenase Total Creatine Kinase CK-MB (CK-2) Rel Index Troponin T C-Reactive Protein Total Protein Albumin Prealbumin LDL Cholesterol Direct HDL Cholesterol Arterial Blood Glucose Arterial Blood Ionized Calcium Urine WBC (Auto) 03/06/20 03/06/20 03/06/20 04:34 05:53 06:08 WBC 25.4 H RBC Hgb 10.5 L Hct 32.7 L MCV MCH 27 L RDW 15.3 H Plt Count 634 H Lymph % (Auto) [place] % (Auto) Lymph # (Auto) [place] # (Auto) Seg Neutrophils % Seg Neuts % (Manual) 88.0 H Lymphocytes % (Manual) 2.0 L Monocytes % (Manual) 8.0 H Basophils % (Manual) Seg Neutrophils # Seg Neutrophils # Man 22.4 H Lymphocytes # (Manual) 0.5 L Monocytes # (Manual) 2.0 H Eosinophils # (Manual) Basophils # (Manual) PT INR D-Dimer ABG pH POC ABG pCO2 POC ABG pO2 ABG pO2 ABG HCO3 37.9 H ABG O2 Saturation ABG Base Excess 11.4 H ABG Hemoglobin 10.6 L ABG Oxyhemoglobin ABG Potassium ABG Glucose Oxyhemoglobin 94.7 L Carboxyhemoglobin Sodium Potassium Chloride Carbon Dioxide BUN Creatinine Glucose POC Glucose 135 H Calcium Ferritin Total Bilirubin Alkaline Phosphatase Lactate Dehydrogenase Total Creatine Kinase CK-MB (CK-2) Rel Index Troponin T C-Reactive Protein Total Protein Albumin Prealbumin LDL Cholesterol Direct HDL Cholesterol Arterial Blood Glucose Arterial Blood Ionized Calcium Urine WBC (Auto) 03/06/20 03/06/20 03/06/20 06:08 12:19 19:10 WBC RBC Hgb Hct MCV MCH RDW Plt Count Lymph % (Auto) [place] % (Auto) Lymph # (Auto) [place] # (Auto) Seg Neutrophils % Seg Neuts % (Manual) Lymphocytes % (Manual) Monocytes % (Manual) Basophils % (Manual) Seg Neutrophils # Seg Neutrophils # Man Lymphocytes # (Manual) Monocytes # (Manual) Eosinophils # (Manual) Basophils # (Manual) PT INR D-Dimer ABG pH POC ABG pCO2 POC ABG pO2 ABG pO2 ABG HCO3 ABG O2 Saturation ABG Base Excess ABG Hemoglobin ABG Oxyhemoglobin ABG Potassium ABG Glucose Oxyhemoglobin Carboxyhemoglobin Sodium 150 H D Potassium Chloride Carbon Dioxide 39 H D BUN 23 H Creatinine < 0.2 L Glucose 144 H POC Glucose 169 H 152 H Calcium Ferritin Total Bilirubin Alkaline Phosphatase Lactate Dehydrogenase Total Creatine Kinase CK-MB (CK-2) Rel Index Troponin T C-Reactive Protein Total Protein Albumin 3.3 L Prealbumin LDL Cholesterol Direct HDL Cholesterol Arterial Blood Glucose Arterial Blood Ionized Calcium Urine WBC (Auto) 03/06/20 03/07/20 03/07/20 23:58 04:25 04:25 WBC 22.1 H RBC Hgb 10.9 L Hct 32.9 L MCV MCH RDW 15.5 H Plt Count 739 H Lymph % (Auto) 7.8 L [place] % (Auto) Lymph # (Auto) [place] # (Auto) 1.3 H Seg Neutrophils % 85.5 H Seg Neuts % (Manual) Lymphocytes % (Manual) Monocytes % (Manual) Basophils % (Manual) Seg Neutrophils # 18.9 H Seg Neutrophils # Man Lymphocytes # (Manual) Monocytes # (Manual) Eosinophils # (Manual) Basophils # (Manual) PT INR D-Dimer ABG pH POC ABG pCO2 POC ABG pO2 ABG pO2 ABG HCO3 ABG O2 Saturation ABG Base Excess ABG Hemoglobin ABG Oxyhemoglobin ABG Potassium ABG Glucose Oxyhemoglobin Carboxyhemoglobin Sodium 146 H Potassium Chloride Carbon Dioxide 37 H BUN Creatinine < 0.2 L Glucose 118 H POC Glucose 111 H Calcium Ferritin Total Bilirubin Alkaline Phosphatase Lactate Dehydrogenase Total Creatine Kinase CK-MB (CK-2) Rel Index Troponin T C-Reactive Protein Total Protein Albumin 3.7 L Prealbumin LDL Cholesterol Direct HDL Cholesterol Arterial Blood Glucose Arterial Blood Ionized Calcium Urine WBC (Auto) 03/07/20 03/07/20 03/07/20 05:20 17:45 23:32 WBC RBC Hgb Hct MCV MCH RDW Plt Count Lymph % (Auto) [place] % (Auto) Lymph # (Auto) [place] # (Auto) Seg Neutrophils % Seg Neuts % (Manual) Lymphocytes % (Manual) Monocytes % (Manual) Basophils % (Manual) Seg Neutrophils # Seg Neutrophils # Man Lymphocytes # (Manual) Monocytes # (Manual) Eosinophils # (Manual) Basophils # (Manual) PT INR D-Dimer ABG pH POC ABG pCO2 POC ABG pO2 ABG pO2 ABG HCO3 ABG O2 Saturation ABG Base Excess ABG Hemoglobin ABG Oxyhemoglobin ABG Potassium ABG Glucose Oxyhemoglobin Carboxyhemoglobin Sodium Potassium Chloride Carbon Dioxide BUN Creatinine Glucose POC Glucose 113 H 124 H 210 H Calcium Ferritin Total Bilirubin Alkaline Phosphatase Lactate Dehydrogenase Total Creatine Kinase CK-MB (CK-2) Rel Index Troponin T C-Reactive Protein Total Protein Albumin Prealbumin LDL Cholesterol Direct HDL Cholesterol Arterial Blood Glucose Arterial Blood Ionized Calcium Urine WBC (Auto) 03/08/20 03/08/20 03/08/20 05:35 06:43 06:43 WBC 28.9 H RBC 3.53 L Hgb 9.7 L Hct 30.3 L MCV MCH RDW 15.6 H Plt Count 578 H Lymph % (Auto) [place] % (Auto) Lymph # (Auto) [place] # (Auto) Seg Neutrophils % Seg Neuts % (Manual) 93.0 H Lymphocytes % (Manual) 4.0 L Monocytes % (Manual) Basophils % (Manual) Seg Neutrophils # Seg Neutrophils # Man 26.9 H Lymphocytes # (Manual) Monocytes # (Manual) Eosinophils # (Manual) Basophils # (Manual) PT INR D-Dimer ABG pH POC ABG pCO2 POC ABG pO2 ABG pO2 ABG HCO3 ABG O2 Saturation ABG Base Excess ABG Hemoglobin ABG Oxyhemoglobin ABG Potassium ABG Glucose Oxyhemoglobin Carboxyhemoglobin Sodium 146 H Potassium Chloride Carbon Dioxide 35 H BUN 34 H Creatinine 0.3 L D Glucose 125 H POC Glucose 147 H Calcium Ferritin Total Bilirubin Alkaline Phosphatase Lactate Dehydrogenase Total Creatine Kinase CK-MB (CK-2) Rel Index Troponin T C-Reactive Protein Total Protein 5.9 L Albumin 3.2 L Prealbumin LDL Cholesterol Direct HDL Cholesterol Arterial Blood Glucose Arterial Blood Ionized Calcium Urine WBC (Auto) 03/08/20 03/08/20 03/08/20 08:57 11:14 12:34 WBC RBC Hgb Hct MCV MCH RDW Plt Count Lymph % (Auto) [place] % (Auto) Lymph # (Auto) [place] # (Auto) Seg Neutrophils % Seg Neuts % (Manual) Lymphocytes % (Manual) Monocytes % (Manual) Basophils % (Manual) Seg Neutrophils # Seg Neutrophils # Man Lymphocytes # (Manual) Monocytes # (Manual) Eosinophils # (Manual) Basophils # (Manual) PT INR D-Dimer ABG pH POC ABG pCO2 63.1 H POC ABG pO2 ABG pO2 ABG HCO3 ABG O2 Saturation ABG Base Excess ABG Hemoglobin 10.9 L ABG Oxyhemoglobin ABG Potassium ABG Glucose 176 H Oxyhemoglobin Carboxyhemoglobin Sodium Potassium Chloride Carbon Dioxide BUN Creatinine Glucose POC Glucose 171 H Calcium Ferritin Total Bilirubin Alkaline Phosphatase Lactate Dehydrogenase Total Creatine Kinase CK-MB (CK-2) Rel Index Troponin T C-Reactive Protein Total Protein Albumin Prealbumin LDL Cholesterol Direct HDL Cholesterol Arterial Blood Glucose 176 H Arterial Blood Ionized Calcium 4.5 L Urine WBC (Auto) 10.0 H 03/08/20 03/08/20 03/09/20 18:02 23:43 05:49 WBC RBC Hgb Hct MCV MCH RDW Plt Count Lymph % (Auto) [place] % (Auto) Lymph # (Auto) [place] # (Auto) Seg Neutrophils % Seg Neuts % (Manual) Lymphocytes % (Manual) Monocytes % (Manual) Basophils % (Manual) Seg Neutrophils # Seg Neutrophils # Man Lymphocytes # (Manual) Monocytes # (Manual) Eosinophils # (Manual) Basophils # (Manual) PT INR D-Dimer ABG pH POC ABG pCO2 POC ABG pO2 ABG pO2 ABG HCO3 ABG O2 Saturation ABG Base Excess ABG Hemoglobin ABG Oxyhemoglobin ABG Potassium ABG Glucose Oxyhemoglobin Carboxyhemoglobin Sodium Potassium Chloride Carbon Dioxide BUN Creatinine Glucose POC Glucose 157 H 134 H 163 H Calcium Ferritin Total Bilirubin Alkaline Phosphatase Lactate Dehydrogenase Total Creatine Kinase CK-MB (CK-2) Rel Index Troponin T C-Reactive Protein Total Protein Albumin Prealbumin LDL Cholesterol Direct HDL Cholesterol Arterial Blood Glucose Arterial Blood Ionized Calcium Urine WBC (Auto) 03/09/20 03/09/20 03/09/20 08:35 08:35 12:11 WBC 23.4 H RBC 3.36 L Hgb 9.3 L Hct 28.8 L MCV MCH RDW 15.9 H Plt Count 521 H Lymph % (Auto) [place] % (Auto) Lymph # (Auto) [place] # (Auto) Seg Neutrophils % Seg Neuts % (Manual) 87.0 H Lymphocytes % (Manual) 4.0 L Monocytes % (Manual) 9.0 H Basophils % (Manual) Seg Neutrophils # Seg Neutrophils # Man 20.4 H Lymphocytes # (Manual) 0.9 L Monocytes # (Manual) 2.1 H Eosinophils # (Manual) Basophils # (Manual) PT INR D-Dimer ABG pH POC ABG pCO2 POC ABG pO2 ABG pO2 ABG HCO3 ABG O2 Saturation ABG Base Excess ABG Hemoglobin ABG Oxyhemoglobin ABG Potassium ABG Glucose Oxyhemoglobin Carboxyhemoglobin Sodium 147 H Potassium Chloride Carbon Dioxide 37 H BUN 63 H Creatinine Glucose 154 H POC Glucose 128 H Calcium Ferritin Total Bilirubin Alkaline Phosphatase Lactate Dehydrogenase Total Creatine Kinase CK-MB (CK-2) Rel Index Troponin T C-Reactive Protein Total Protein Albumin Prealbumin LDL Cholesterol Direct HDL Cholesterol Arterial Blood Glucose Arterial Blood Ionized Calcium Urine WBC (Auto) 03/09/20 03/10/20 03/10/20 17:51 00:25 05:41 WBC RBC Hgb Hct MCV MCH RDW Plt Count Lymph % (Auto) [place] % (Auto) Lymph # (Auto) [place] # (Auto) Seg Neutrophils % Seg Neuts % (Manual) Lymphocytes % (Manual) Monocytes % (Manual) Basophils % (Manual) Seg Neutrophils # Seg Neutrophils # Man Lymphocytes # (Manual) Monocytes # (Manual) Eosinophils # (Manual) Basophils # (Manual) PT INR D-Dimer ABG pH POC ABG pCO2 POC ABG pO2 ABG pO2 ABG HCO3 ABG O2 Saturation ABG Base Excess ABG Hemoglobin ABG Oxyhemoglobin ABG Potassium ABG Glucose Oxyhemoglobin Carboxyhemoglobin Sodium Potassium Chloride Carbon Dioxide BUN Creatinine Glucose POC Glucose 127 H 128 H 153 H Calcium Ferritin Total Bilirubin Alkaline Phosphatase Lactate Dehydrogenase Total Creatine Kinase CK-MB (CK-2) Rel Index Troponin T C-Reactive Protein Total Protein Albumin Prealbumin LDL Cholesterol Direct HDL Cholesterol Arterial Blood Glucose Arterial Blood Ionized Calcium Urine WBC (Auto) 03/10/20 03/10/20 03/10/20 06:14 06:14 12:02 WBC 18.3 H RBC 3.45 L Hgb 9.5 L Hct 29.5 L MCV MCH RDW 16.1 H Plt Count 494 H Lymph % (Auto) [place] % (Auto) Lymph # (Auto) [place] # (Auto) Seg Neutrophils % Seg Neuts % (Manual) 95.0 H Lymphocytes % (Manual) 1.0 L Monocytes % (Manual) Basophils % (Manual) Seg Neutrophils # Seg Neutrophils # Man 17.4 H Lymphocytes # (Manual) 0.2 L Monocytes # (Manual) Eosinophils # (Manual) Basophils # (Manual) PT INR D-Dimer ABG pH POC ABG pCO2 POC ABG pO2 ABG pO2 ABG HCO3 ABG O2 Saturation ABG Base Excess ABG Hemoglobin ABG Oxyhemoglobin ABG Potassium ABG Glucose Oxyhemoglobin Carboxyhemoglobin Sodium 149 H Potassium Chloride Carbon Dioxide 35 H BUN 34 H Creatinine 0.2 L D Glucose 177 H POC Glucose 151 H Calcium Ferritin Total Bilirubin Alkaline Phosphatase Lactate Dehydrogenase Total Creatine Kinase CK-MB (CK-2) Rel Index Troponin T C-Reactive Protein Total Protein Albumin Prealbumin LDL Cholesterol Direct HDL Cholesterol Arterial Blood Glucose Arterial Blood Ionized Calcium Urine WBC (Auto) 03/10/20 03/10/20 03/11/20 17:41 23:53 05:02 WBC RBC Hgb Hct MCV MCH RDW Plt Count Lymph % (Auto) [place] % (Auto) Lymph # (Auto) [place] # (Auto) Seg Neutrophils % Seg Neuts % (Manual) Lymphocytes % (Manual) Monocytes % (Manual) Basophils % (Manual) Seg Neutrophils # Seg Neutrophils # Man Lymphocytes # (Manual) Monocytes # (Manual) Eosinophils # (Manual) Basophils # (Manual) PT INR D-Dimer ABG pH POC ABG pCO2 POC ABG pO2 ABG pO2 ABG HCO3 ABG O2 Saturation ABG Base Excess ABG Hemoglobin ABG Oxyhemoglobin ABG Potassium ABG Glucose Oxyhemoglobin Carboxyhemoglobin Sodium Potassium Chloride Carbon Dioxide BUN Creatinine Glucose POC Glucose 168 H 142 H 146 H Calcium Ferritin Total Bilirubin Alkaline Phosphatase Lactate Dehydrogenase Total Creatine Kinase CK-MB (CK-2) Rel Index Troponin T C-Reactive Protein Total Protein Albumin Prealbumin LDL Cholesterol Direct HDL Cholesterol Arterial Blood Glucose Arterial Blood Ionized Calcium Urine WBC (Auto) 03/11/20 03/11/20 03/11/20 11:30 14:01 14:01 WBC 19.7 H RBC 3.04 L Hgb 8.7 L Hct 25.8 L MCV MCH RDW 15.6 H Plt Count Lymph % (Auto) [place] % (Auto) Lymph # (Auto) [place] # (Auto) Seg Neutrophils % Seg Neuts % (Manual) Lymphocytes % (Manual) Monocytes % (Manual) Basophils % (Manual) Seg Neutrophils # Seg Neutrophils # Man Lymphocytes # (Manual) Monocytes # (Manual) Eosinophils # (Manual) Basophils # (Manual) PT INR D-Dimer ABG pH POC ABG pCO2 POC ABG pO2 ABG pO2 ABG HCO3 ABG O2 Saturation ABG Base Excess ABG Hemoglobin ABG Oxyhemoglobin ABG Potassium ABG Glucose Oxyhemoglobin Carboxyhemoglobin Sodium 151 H Potassium Chloride Carbon Dioxide 37 H BUN Creatinine < 0.2 L Glucose 171 H POC Glucose 248 H Calcium Ferritin Total Bilirubin Alkaline Phosphatase Lactate Dehydrogenase Total Creatine Kinase CK-MB (CK-2) Rel Index Troponin T C-Reactive Protein Total Protein Albumin Prealbumin LDL Cholesterol Direct HDL Cholesterol Arterial Blood Glucose Arterial Blood Ionized Calcium Urine WBC (Auto) 03/11/20 03/11/20 03/12/20 17:09 23:52 04:39 WBC 19.9 H RBC 3.16 L Hgb 8.9 L Hct 27.5 L MCV MCH RDW 15.7 H Plt Count Lymph % (Auto) 6.8 L [place] % (Auto) Lymph # (Auto) [place] # (Auto) 1.2 H Seg Neutrophils % 86.0 H Seg Neuts % (Manual) Lymphocytes % (Manual) Monocytes % (Manual) Basophils % (Manual) Seg Neutrophils # 17.1 H Seg Neutrophils # Man Lymphocytes # (Manual) Monocytes # (Manual) Eosinophils # (Manual) Basophils # (Manual) PT INR D-Dimer ABG pH POC ABG pCO2 POC ABG pO2 ABG pO2 ABG HCO3 ABG O2 Saturation ABG Base Excess ABG Hemoglobin ABG Oxyhemoglobin ABG Potassium ABG Glucose Oxyhemoglobin Carboxyhemoglobin Sodium Potassium Chloride Carbon Dioxide BUN Creatinine Glucose POC Glucose 124 H 131 H Calcium Ferritin Total Bilirubin Alkaline Phosphatase Lactate Dehydrogenase Total Creatine Kinase CK-MB (CK-2) Rel Index Troponin T C-Reactive Protein Total Protein Albumin Prealbumin LDL Cholesterol Direct HDL Cholesterol Arterial Blood Glucose Arterial Blood Ionized Calcium Urine WBC (Auto) 03/12/20 03/12/20 03/12/20 04:39 05:28 11:34 WBC RBC Hgb Hct MCV MCH RDW Plt Count Lymph % (Auto) [place] % (Auto) Lymph # (Auto) [place] # (Auto) Seg Neutrophils % Seg Neuts % (Manual) Lymphocytes % (Manual) Monocytes % (Manual) Basophils % (Manual) Seg Neutrophils # Seg Neutrophils # Man Lymphocytes # (Manual) Monocytes # (Manual) Eosinophils # (Manual) Basophils # (Manual) PT INR D-Dimer ABG pH POC ABG pCO2 POC ABG pO2 ABG pO2 ABG HCO3 ABG O2 Saturation ABG Base Excess ABG Hemoglobin ABG Oxyhemoglobin ABG Potassium ABG Glucose Oxyhemoglobin Carboxyhemoglobin Sodium 147 H Potassium Chloride Carbon Dioxide 40 H BUN Creatinine < 0.2 L Glucose 175 H POC Glucose 167 H 144 H Calcium Ferritin Total Bilirubin Alkaline Phosphatase Lactate Dehydrogenase Total Creatine Kinase CK-MB (CK-2) Rel Index Troponin T C-Reactive Protein Total Protein Albumin Prealbumin LDL Cholesterol Direct HDL Cholesterol Arterial Blood Glucose Arterial Blood Ionized Calcium Urine WBC (Auto) 03/12/20 03/12/20 03/13/20 17:32 23:57 05:57 WBC RBC Hgb Hct MCV MCH RDW Plt Count Lymph % (Auto) [place] % (Auto) Lymph # (Auto) [place] # (Auto) Seg Neutrophils % Seg Neuts % (Manual) Lymphocytes % (Manual) Monocytes % (Manual) Basophils % (Manual) Seg Neutrophils # Seg Neutrophils # Man Lymphocytes # (Manual) Monocytes # (Manual) Eosinophils # (Manual) Basophils # (Manual) PT INR D-Dimer ABG pH POC ABG pCO2 POC ABG pO2 ABG pO2 ABG HCO3 ABG O2 Saturation ABG Base Excess ABG Hemoglobin ABG Oxyhemoglobin ABG Potassium ABG Glucose Oxyhemoglobin Carboxyhemoglobin Sodium Potassium Chloride Carbon Dioxide BUN Creatinine Glucose POC Glucose 141 H 137 H 161 H Calcium Ferritin Total Bilirubin Alkaline Phosphatase Lactate Dehydrogenase Total Creatine Kinase CK-MB (CK-2) Rel Index Troponin T C-Reactive Protein Total Protein Albumin Prealbumin LDL Cholesterol Direct HDL Cholesterol Arterial Blood Glucose Arterial Blood Ionized Calcium Urine WBC (Auto) 03/13/20 03/13/20 03/13/20 12:28 14:14 18:39 WBC RBC Hgb Hct MCV MCH RDW Plt Count Lymph % (Auto) [place] % (Auto) Lymph # (Auto) [place] # (Auto) Seg Neutrophils % Seg Neuts % (Manual) Lymphocytes % (Manual) Monocytes % (Manual) Basophils % (Manual) Seg Neutrophils # Seg Neutrophils # Man Lymphocytes # (Manual) Monocytes # (Manual) Eosinophils # (Manual) Basophils # (Manual) PT INR D-Dimer ABG pH POC ABG pCO2 POC ABG pO2 ABG pO2 ABG HCO3 ABG O2 Saturation ABG Base Excess ABG Hemoglobin ABG Oxyhemoglobin ABG Potassium ABG Glucose Oxyhemoglobin Carboxyhemoglobin Sodium Potassium Chloride Carbon Dioxide 39 H BUN Creatinine < 0.2 L Glucose 129 H POC Glucose 130 H 125 H Calcium Ferritin Total Bilirubin Alkaline Phosphatase Lactate Dehydrogenase Total Creatine Kinase CK-MB (CK-2) Rel Index Troponin T C-Reactive Protein Total Protein Albumin Prealbumin LDL Cholesterol Direct HDL Cholesterol Arterial Blood Glucose Arterial Blood Ionized Calcium Urine WBC (Auto) 03/13/20 03/14/20 03/14/20 23:33 05:24 08:07 WBC 16.8 H RBC 2.81 L Hgb 7.9 L Hct 23.9 L MCV MCH RDW 15.9 H Plt Count Lymph % (Auto) [place] % (Auto) Lymph # (Auto) [place] # (Auto) Seg Neutrophils % Seg Neuts % (Manual) 84.0 H Lymphocytes % (Manual) 10.0 L Monocytes % (Manual) Basophils % (Manual) Seg Neutrophils # Seg Neutrophils # Man 14.1 H Lymphocytes # (Manual) Monocytes # (Manual) Eosinophils # (Manual) Basophils # (Manual) PT INR D-Dimer ABG pH POC ABG pCO2 POC ABG pO2 ABG pO2 ABG HCO3 ABG O2 Saturation ABG Base Excess ABG Hemoglobin ABG Oxyhemoglobin ABG Potassium ABG Glucose Oxyhemoglobin Carboxyhemoglobin Sodium Potassium Chloride Carbon Dioxide BUN Creatinine Glucose POC Glucose 146 H 125 H Calcium Ferritin Total Bilirubin Alkaline Phosphatase Lactate Dehydrogenase Total Creatine Kinase CK-MB (CK-2) Rel Index Troponin T C-Reactive Protein Total Protein Albumin Prealbumin LDL Cholesterol Direct HDL Cholesterol Arterial Blood Glucose Arterial Blood Ionized Calcium Urine WBC (Auto) 03/14/20 03/14/20 03/14/20 08:07 12:21 18:26 WBC RBC Hgb Hct MCV MCH RDW Plt Count Lymph % (Auto) [place] % (Auto) Lymph # (Auto) [place] # (Auto) Seg Neutrophils % Seg Neuts % (Manual) Lymphocytes % (Manual) Monocytes % (Manual) Basophils % (Manual) Seg Neutrophils # Seg Neutrophils # Man Lymphocytes # (Manual) Monocytes # (Manual) Eosinophils # (Manual) Basophils # (Manual) PT INR D-Dimer ABG pH POC ABG pCO2 POC ABG pO2 ABG pO2 ABG HCO3 ABG O2 Saturation ABG Base Excess ABG Hemoglobin ABG Oxyhemoglobin ABG Potassium ABG Glucose Oxyhemoglobin Carboxyhemoglobin Sodium Potassium Chloride 97.0 L Carbon Dioxide 37 H BUN Creatinine < 0.2 L Glucose 129 H POC Glucose 109 H 142 H Calcium 8.3 L Ferritin Total Bilirubin Alkaline Phosphatase Lactate Dehydrogenase Total Creatine Kinase CK-MB (CK-2) Rel Index Troponin T C-Reactive Protein Total Protein Albumin Prealbumin LDL Cholesterol Direct HDL Cholesterol Arterial Blood Glucose Arterial Blood Ionized Calcium Urine WBC (Auto) 03/14/20 03/15/20 03/15/20 23:57 05:46 08:06 WBC 19.7 H RBC 3.29 L Hgb 9.1 L Hct 28.0 L MCV MCH RDW 15.9 H Plt Count Lymph % (Auto) [place] % (Auto) Lymph # (Auto) [place] # (Auto) Seg Neutrophils % Seg Neuts % (Manual) Lymphocytes % (Manual) Monocytes % (Manual) Basophils % (Manual) Seg Neutrophils # Seg Neutrophils # Man Lymphocytes # (Manual) Monocytes # (Manual) Eosinophils # (Manual) Basophils # (Manual) PT INR D-Dimer ABG pH POC ABG pCO2 POC ABG pO2 ABG pO2 ABG HCO3 ABG O2 Saturation ABG Base Excess ABG Hemoglobin ABG Oxyhemoglobin ABG Potassium ABG Glucose Oxyhemoglobin Carboxyhemoglobin Sodium Potassium Chloride Carbon Dioxide BUN Creatinine Glucose POC Glucose 157 H 118 H Calcium Ferritin Total Bilirubin Alkaline Phosphatase Lactate Dehydrogenase Total Creatine Kinase CK-MB (CK-2) Rel Index Troponin T C-Reactive Protein Total Protein Albumin Prealbumin LDL Cholesterol Direct HDL Cholesterol Arterial Blood Glucose Arterial Blood Ionized Calcium Urine WBC (Auto) 03/15/20 03/15/20 03/15/20 08:06 12:44 18:09 WBC RBC Hgb Hct MCV MCH RDW Plt Count Lymph % (Auto) [place] % (Auto) Lymph # (Auto) [place] # (Auto) Seg Neutrophils % Seg Neuts % (Manual) Lymphocytes % (Manual) Monocytes % (Manual) Basophils % (Manual) Seg Neutrophils # Seg Neutrophils # Man Lymphocytes # (Manual) Monocytes # (Manual) Eosinophils # (Manual) Basophils # (Manual) PT INR D-Dimer ABG pH POC ABG pCO2 POC ABG pO2 ABG pO2 ABG HCO3 ABG O2 Saturation ABG Base Excess ABG Hemoglobin ABG Oxyhemoglobin ABG Potassium ABG Glucose Oxyhemoglobin Carboxyhemoglobin Sodium 136 L Potassium Chloride 93.6 L Carbon Dioxide 37 H BUN Creatinine < 0.2 L Glucose 132 H POC Glucose 151 H 164 H Calcium Ferritin Total Bilirubin Alkaline Phosphatase Lactate Dehydrogenase Total Creatine Kinase CK-MB (CK-2) Rel Index Troponin T C-Reactive Protein Total Protein Albumin Prealbumin LDL Cholesterol Direct HDL Cholesterol Arterial Blood Glucose Arterial Blood Ionized Calcium Urine WBC (Auto) 03/15/20 03/16/20 03/16/20 23:26 05:39 11:58 WBC RBC Hgb Hct MCV MCH RDW Plt Count Lymph % (Auto) [place] % (Auto) Lymph # (Auto) [place] # (Auto) Seg Neutrophils % Seg Neuts % (Manual) Lymphocytes % (Manual) Monocytes % (Manual) Basophils % (Manual) Seg Neutrophils # Seg Neutrophils # Man Lymphocytes # (Manual) Monocytes # (Manual) Eosinophils # (Manual) Basophils # (Manual) PT INR D-Dimer ABG pH POC ABG pCO2 POC ABG pO2 ABG pO2 ABG HCO3 ABG O2 Saturation ABG Base Excess ABG Hemoglobin ABG Oxyhemoglobin ABG Potassium ABG Glucose Oxyhemoglobin Carboxyhemoglobin Sodium Potassium Chloride Carbon Dioxide BUN Creatinine Glucose POC Glucose 136 H 116 H 109 H Calcium Ferritin Total Bilirubin Alkaline Phosphatase Lactate Dehydrogenase Total Creatine Kinase CK-MB (CK-2) Rel Index Troponin T C-Reactive Protein Total Protein Albumin Prealbumin LDL Cholesterol Direct HDL Cholesterol Arterial Blood Glucose Arterial Blood Ionized Calcium Urine WBC (Auto) 03/16/20 03/17/20 03/17/20 23:56 04:40 04:40 WBC 18.0 H RBC 3.33 L Hgb 9.5 L Hct 28.8 L MCV MCH RDW 16.4 H Plt Count 499 H Lymph % (Auto) [place] % (Auto) Lymph # (Auto) [place] # (Auto) Seg Neutrophils % Seg Neuts % (Manual) 82.0 H Lymphocytes % (Manual) 8.0 L Monocytes % (Manual) Basophils % (Manual) Seg Neutrophils # Seg Neutrophils # Man 14.8 H Lymphocytes # (Manual) Monocytes # (Manual) 1.3 H Eosinophils # (Manual) Basophils # (Manual) 0.2 H PT INR D-Dimer ABG pH POC ABG pCO2 POC ABG pO2 ABG pO2 ABG HCO3 ABG O2 Saturation ABG Base Excess ABG Hemoglobin ABG Oxyhemoglobin ABG Potassium ABG Glucose Oxyhemoglobin Carboxyhemoglobin Sodium Potassium Chloride 97.7 L Carbon Dioxide 32 H BUN Creatinine < 0.2 L Glucose 114 H POC Glucose 131 H Calcium Ferritin Total Bilirubin Alkaline Phosphatase Lactate Dehydrogenase Total Creatine Kinase CK-MB (CK-2) Rel Index Troponin T C-Reactive Protein Total Protein Albumin Prealbumin LDL Cholesterol Direct HDL Cholesterol Arterial Blood Glucose Arterial Blood Ionized Calcium Urine WBC (Auto) 03/18/20 03/18/20 03/18/20 00:21 05:21 11:55 WBC RBC Hgb Hct MCV MCH RDW Plt Count Lymph % (Auto) [place] % (Auto) Lymph # (Auto) [place] # (Auto) Seg Neutrophils % Seg Neuts % (Manual) Lymphocytes % (Manual) Monocytes % (Manual) Basophils % (Manual) Seg Neutrophils # Seg Neutrophils # Man Lymphocytes # (Manual) Monocytes # (Manual) Eosinophils # (Manual) Basophils # (Manual) PT INR D-Dimer ABG pH POC ABG pCO2 POC ABG pO2 ABG pO2 ABG HCO3 ABG O2 Saturation ABG Base Excess ABG Hemoglobin ABG Oxyhemoglobin ABG Potassium ABG Glucose Oxyhemoglobin Carboxyhemoglobin Sodium Potassium Chloride Carbon Dioxide BUN Creatinine Glucose POC Glucose 124 H 138 H 119 H Calcium Ferritin Total Bilirubin Alkaline Phosphatase Lactate Dehydrogenase Total Creatine Kinase CK-MB (CK-2) Rel Index Troponin T C-Reactive Protein Total Protein Albumin Prealbumin LDL Cholesterol Direct HDL Cholesterol Arterial Blood Glucose Arterial Blood Ionized Calcium Urine WBC (Auto) 03/18/20 03/18/20 03/19/20 17:03 23:58 05:24 WBC RBC Hgb Hct MCV MCH RDW Plt Count Lymph % (Auto) [place] % (Auto) Lymph # (Auto) [place] # (Auto) Seg Neutrophils % Seg Neuts % (Manual) Lymphocytes % (Manual) Monocytes % (Manual) Basophils % (Manual) Seg Neutrophils # Seg Neutrophils # Man Lymphocytes # (Manual) Monocytes # (Manual) Eosinophils # (Manual) Basophils # (Manual) PT INR D-Dimer ABG pH POC ABG pCO2 POC ABG pO2 ABG pO2 ABG HCO3 ABG O2 Saturation ABG Base Excess ABG Hemoglobin ABG Oxyhemoglobin ABG Potassium ABG Glucose Oxyhemoglobin Carboxyhemoglobin Sodium Potassium Chloride Carbon Dioxide BUN Creatinine Glucose POC Glucose 128 H 128 H 115 H Calcium Ferritin Total Bilirubin Alkaline Phosphatase Lactate Dehydrogenase Total Creatine Kinase CK-MB (CK-2) Rel Index Troponin T C-Reactive Protein Total Protein Albumin Prealbumin LDL Cholesterol Direct HDL Cholesterol Arterial Blood Glucose Arterial Blood Ionized Calcium Urine WBC (Auto) 03/19/20 03/19/20 03/19/20 08:05 08:05 11:56 WBC 16.8 H RBC 3.36 L Hgb 9.4 L Hct 28.8 L MCV MCH RDW 17.4 H Plt Count 567 H Lymph % (Auto) 7.8 L [place] % (Auto) Lymph # (Auto) [place] # (Auto) 1.2 H Seg Neutrophils % 83.5 H Seg Neuts % (Manual) Lymphocytes % (Manual) Monocytes % (Manual) Basophils % (Manual) Seg Neutrophils # 14.1 H Seg Neutrophils # Man Lymphocytes # (Manual) Monocytes # (Manual) Eosinophils # (Manual) Basophils # (Manual) PT INR D-Dimer ABG pH POC ABG pCO2 POC ABG pO2 ABG pO2 ABG HCO3 ABG O2 Saturation ABG Base Excess ABG Hemoglobin ABG Oxyhemoglobin ABG Potassium ABG Glucose Oxyhemoglobin Carboxyhemoglobin Sodium Potassium Chloride Carbon Dioxide 36 H BUN Creatinine < 0.2 L Glucose 135 H POC Glucose 128 H Calcium Ferritin Total Bilirubin Alkaline Phosphatase Lactate Dehydrogenase Total Creatine Kinase CK-MB (CK-2) Rel Index Troponin T C-Reactive Protein Total Protein Albumin Prealbumin LDL Cholesterol Direct HDL Cholesterol Arterial Blood Glucose Arterial Blood Ionized Calcium Urine WBC (Auto) 03/19/20 03/20/20 03/20/20 23:59 05:12 16:52 WBC RBC Hgb Hct MCV MCH RDW Plt Count Lymph % (Auto) [place] % (Auto) Lymph # (Auto) [place] # (Auto) Seg Neutrophils % Seg Neuts % (Manual) Lymphocytes % (Manual) Monocytes % (Manual) Basophils % (Manual) Seg Neutrophils # Seg Neutrophils # Man Lymphocytes # (Manual) Monocytes # (Manual) Eosinophils # (Manual) Basophils # (Manual) PT INR D-Dimer ABG pH POC ABG pCO2 POC ABG pO2 ABG pO2 ABG HCO3 ABG O2 Saturation ABG Base Excess ABG Hemoglobin ABG Oxyhemoglobin ABG Potassium ABG Glucose Oxyhemoglobin Carboxyhemoglobin Sodium Potassium Chloride Carbon Dioxide BUN Creatinine Glucose POC Glucose 120 H 131 H 124 H Calcium Ferritin Total Bilirubin Alkaline Phosphatase Lactate Dehydrogenase Total Creatine Kinase CK-MB (CK-2) Rel Index Troponin T C-Reactive Protein Total Protein Albumin Prealbumin LDL Cholesterol Direct HDL Cholesterol Arterial Blood Glucose Arterial Blood Ionized Calcium Urine WBC (Auto) 03/20/20 03/21/20 03/21/20 23:35 04:50 07:35 WBC 15.2 H RBC 3.39 L Hgb 9.4 L Hct 29.4 L MCV MCH RDW 17.6 H Plt Count 518 H Lymph % (Auto) [place] % (Auto) Lymph # (Auto) [place] # (Auto) Seg Neutrophils % Seg Neuts % (Manual) 83.0 H Lymphocytes % (Manual) 10.0 L Monocytes % (Manual) Basophils % (Manual) 2.0 H Seg Neutrophils # Seg Neutrophils # Man 12.6 H Lymphocytes # (Manual) Monocytes # (Manual) Eosinophils # (Manual) Basophils # (Manual) 0.3 H PT INR D-Dimer ABG pH POC ABG pCO2 POC ABG pO2 ABG pO2 ABG HCO3 ABG O2 Saturation ABG Base Excess ABG Hemoglobin ABG Oxyhemoglobin ABG Potassium ABG Glucose Oxyhemoglobin Carboxyhemoglobin Sodium Potassium Chloride Carbon Dioxide BUN Creatinine Glucose POC Glucose 125 H 127 H Calcium Ferritin Total Bilirubin Alkaline Phosphatase Lactate Dehydrogenase Total Creatine Kinase CK-MB (CK-2) Rel Index Troponin T C-Reactive Protein Total Protein Albumin Prealbumin LDL Cholesterol Direct HDL Cholesterol Arterial Blood Glucose Arterial Blood Ionized Calcium Urine WBC (Auto) 03/21/20 03/21/20 03/21/20 07:35 11:45 17:22 WBC RBC Hgb Hct MCV MCH RDW Plt Count Lymph % (Auto) [place] % (Auto) Lymph # (Auto) [place] # (Auto) Seg Neutrophils % Seg Neuts % (Manual) Lymphocytes % (Manual) Monocytes % (Manual) Basophils % (Manual) Seg Neutrophils # Seg Neutrophils # Man Lymphocytes # (Manual) Monocytes # (Manual) Eosinophils # (Manual) Basophils # (Manual) PT INR D-Dimer ABG pH POC ABG pCO2 POC ABG pO2 ABG pO2 ABG HCO3 ABG O2 Saturation ABG Base Excess ABG Hemoglobin ABG Oxyhemoglobin ABG Potassium ABG Glucose Oxyhemoglobin Carboxyhemoglobin Sodium 136 L Potassium Chloride 97.7 L Carbon Dioxide 32 H BUN Creatinine < 0.2 L Glucose 103 H POC Glucose 126 H 120 H Calcium Ferritin Total Bilirubin Alkaline Phosphatase Lactate Dehydrogenase Total Creatine Kinase CK-MB (CK-2) Rel Index Troponin T C-Reactive Protein Total Protein Albumin Prealbumin LDL Cholesterol Direct HDL Cholesterol Arterial Blood Glucose Arterial Blood Ionized Calcium Urine WBC (Auto) 03/22/20 03/22/20 03/22/20 05:09 06:34 06:34 WBC 17.5 H RBC 3.52 L Hgb 10.0 L Hct 30.7 L MCV MCH RDW 17.5 H Plt Count 499 H Lymph % (Auto) [place] % (Auto) Lymph # (Auto) [place] # (Auto) Seg Neutrophils % Seg Neuts % (Manual) 80.0 H Lymphocytes % (Manual) 10.0 L Monocytes % (Manual) Basophils % (Manual) Seg Neutrophils # Seg Neutrophils # Man 14.0 H Lymphocytes # (Manual) Monocytes # (Manual) Eosinophils # (Manual) Basophils # (Manual) PT INR D-Dimer ABG pH POC ABG pCO2 POC ABG pO2 ABG pO2 ABG HCO3 ABG O2 Saturation ABG Base Excess ABG Hemoglobin ABG Oxyhemoglobin ABG Potassium ABG Glucose Oxyhemoglobin Carboxyhemoglobin Sodium Potassium Chloride 96.6 L Carbon Dioxide 38 H BUN Creatinine < 0.2 L Glucose 139 H POC Glucose 125 H Calcium Ferritin Total Bilirubin Alkaline Phosphatase Lactate Dehydrogenase Total Creatine Kinase CK-MB (CK-2) Rel Index Troponin T C-Reactive Protein Total Protein Albumin Prealbumin LDL Cholesterol Direct HDL Cholesterol Arterial Blood Glucose Arterial Blood Ionized Calcium Urine WBC (Auto) 03/22/20 03/22/20 03/22/20 11:45 18:00 23:32 WBC RBC Hgb Hct MCV MCH RDW Plt Count Lymph % (Auto) [place] % (Auto) Lymph # (Auto) [place] # (Auto) Seg Neutrophils % Seg Neuts % (Manual) Lymphocytes % (Manual) Monocytes % (Manual) Basophils % (Manual) Seg Neutrophils # Seg Neutrophils # Man Lymphocytes # (Manual) Monocytes # (Manual) Eosinophils # (Manual) Basophils # (Manual) PT INR D-Dimer ABG pH POC ABG pCO2 POC ABG pO2 ABG pO2 ABG HCO3 ABG O2 Saturation ABG Base Excess ABG Hemoglobin ABG Oxyhemoglobin ABG Potassium ABG Glucose Oxyhemoglobin Carboxyhemoglobin Sodium Potassium Chloride Carbon Dioxide BUN Creatinine Glucose POC Glucose 135 H 133 H Calcium Ferritin Total Bilirubin Alkaline Phosphatase Lactate Dehydrogenase Total Creatine Kinase CK-MB (CK-2) Rel Index Troponin T 0.113 H* C-Reactive Protein Total Protein Albumin Prealbumin LDL Cholesterol Direct HDL Cholesterol Arterial Blood Glucose Arterial Blood Ionized Calcium Urine WBC (Auto) 03/23/20 03/23/20 03/23/20 01:47 06:21 07:57 WBC RBC Hgb Hct MCV MCH RDW Plt Count Lymph % (Auto) [place] % (Auto) Lymph # (Auto) [place] # (Auto) Seg Neutrophils % Seg Neuts % (Manual) Lymphocytes % (Manual) Monocytes % (Manual) Basophils % (Manual) Seg Neutrophils # Seg Neutrophils # Man Lymphocytes # (Manual) Monocytes # (Manual) Eosinophils # (Manual) Basophils # (Manual) PT INR D-Dimer ABG pH POC ABG pCO2 POC ABG pO2 ABG pO2 ABG HCO3 ABG O2 Saturation ABG Base Excess ABG Hemoglobin ABG Oxyhemoglobin ABG Potassium ABG Glucose Oxyhemoglobin Carboxyhemoglobin Sodium Potassium Chloride Carbon Dioxide BUN Creatinine Glucose POC Glucose 130 H Calcium Ferritin Total Bilirubin Alkaline Phosphatase Lactate Dehydrogenase Total Creatine Kinase CK-MB (CK-2) Rel Index Troponin T 0.143 H* D 0.105 H* D C-Reactive Protein Total Protein Albumin Prealbumin LDL Cholesterol Direct HDL Cholesterol Arterial Blood Glucose Arterial Blood Ionized Calcium Urine WBC (Auto) 03/23/20 03/24/20 03/24/20 12:02 05:33 07:15 WBC 18.0 H RBC Hgb 11.0 L Hct 34.0 L MCV MCH RDW 17.4 H Plt Count 520 H Lymph % (Auto) [place] % (Auto) Lymph # (Auto) [place] # (Auto) Seg Neutrophils % Seg Neuts % (Manual) 88.0 H Lymphocytes % (Manual) 7.0 L Monocytes % (Manual) Basophils % (Manual) Seg Neutrophils # Seg Neutrophils # Man 15.8 H Lymphocytes # (Manual) Monocytes # (Manual) Eosinophils # (Manual) Basophils # (Manual) PT INR D-Dimer ABG pH POC ABG pCO2 POC ABG pO2 ABG pO2 ABG HCO3 ABG O2 Saturation ABG Base Excess ABG Hemoglobin ABG Oxyhemoglobin ABG Potassium ABG Glucose Oxyhemoglobin Carboxyhemoglobin Sodium Potassium Chloride Carbon Dioxide BUN Creatinine Glucose POC Glucose 137 H 112 H Calcium Ferritin Total Bilirubin Alkaline Phosphatase Lactate Dehydrogenase Total Creatine Kinase CK-MB (CK-2) Rel Index Troponin T C-Reactive Protein Total Protein Albumin Prealbumin LDL Cholesterol Direct HDL Cholesterol Arterial Blood Glucose Arterial Blood Ionized Calcium Urine WBC (Auto) 03/24/20 03/24/20 03/24/20 07:15 11:22 23:30 WBC RBC Hgb Hct MCV MCH RDW Plt Count Lymph % (Auto) [place] % (Auto) Lymph # (Auto) [place] # (Auto) Seg Neutrophils % Seg Neuts % (Manual) Lymphocytes % (Manual) Monocytes % (Manual) Basophils % (Manual) Seg Neutrophils # Seg Neutrophils # Man Lymphocytes # (Manual) Monocytes # (Manual) Eosinophils # (Manual) Basophils # (Manual) PT INR D-Dimer ABG pH POC ABG pCO2 POC ABG pO2 ABG pO2 ABG HCO3 ABG O2 Saturation ABG Base Excess ABG Hemoglobin ABG Oxyhemoglobin ABG Potassium ABG Glucose Oxyhemoglobin Carboxyhemoglobin Sodium Potassium Chloride 96.6 L Carbon Dioxide 38 H BUN Creatinine < 0.2 L Glucose 141 H POC Glucose 130 H 120 H Calcium Ferritin Total Bilirubin Alkaline Phosphatase Lactate Dehydrogenase Total Creatine Kinase CK-MB (CK-2) Rel Index Troponin T C-Reactive Protein Total Protein Albumin Prealbumin LDL Cholesterol Direct HDL Cholesterol Arterial Blood Glucose Arterial Blood Ionized Calcium Urine WBC (Auto) 03/25/20 03/25/20 03/25/20 05:48 17:53 23:18 WBC RBC Hgb Hct MCV MCH RDW Plt Count Lymph % (Auto) [place] % (Auto) Lymph # (Auto) [place] # (Auto) Seg Neutrophils % Seg Neuts % (Manual) Lymphocytes % (Manual) Monocytes % (Manual) Basophils % (Manual) Seg Neutrophils # Seg Neutrophils # Man Lymphocytes # (Manual) Monocytes # (Manual) Eosinophils # (Manual) Basophils # (Manual) PT INR D-Dimer ABG pH POC ABG pCO2 POC ABG pO2 ABG pO2 ABG HCO3 ABG O2 Saturation ABG Base Excess ABG Hemoglobin ABG Oxyhemoglobin ABG Potassium ABG Glucose Oxyhemoglobin Carboxyhemoglobin Sodium Potassium Chloride Carbon Dioxide BUN Creatinine Glucose POC Glucose 124 H 109 H 131 H Calcium Ferritin Total Bilirubin Alkaline Phosphatase Lactate Dehydrogenase Total Creatine Kinase CK-MB (CK-2) Rel Index Troponin T C-Reactive Protein Total Protein Albumin Prealbumin LDL Cholesterol Direct HDL Cholesterol Arterial Blood Glucose Arterial Blood Ionized Calcium Urine WBC (Auto) 03/26/20 03/26/20 03/26/20 05:21 08:49 08:49 WBC 19.7 H RBC Hgb 10.7 L Hct 33.5 L MCV MCH 27 L RDW 17.1 H Plt Count 480 H Lymph % (Auto) 5.7 L [place] % (Auto) Lymph # (Auto) 1.1 L [place] # (Auto) 1.2 H Seg Neutrophils % 87.7 H Seg Neuts % (Manual) Lymphocytes % (Manual) Monocytes % (Manual) Basophils % (Manual) Seg Neutrophils # 17.2 H Seg Neutrophils # Man Lymphocytes # (Manual) Monocytes # (Manual) Eosinophils # (Manual) Basophils # (Manual) PT INR D-Dimer ABG pH POC ABG pCO2 POC ABG pO2 ABG pO2 ABG HCO3 ABG O2 Saturation ABG Base Excess ABG Hemoglobin ABG Oxyhemoglobin ABG Potassium ABG Glucose Oxyhemoglobin Carboxyhemoglobin Sodium Potassium Chloride 97.2 L Carbon Dioxide 36 H BUN Creatinine < 0.2 L Glucose 127 H POC Glucose 116 H Calcium Ferritin Total Bilirubin Alkaline Phosphatase Lactate Dehydrogenase Total Creatine Kinase CK-MB (CK-2) Rel Index Troponin T C-Reactive Protein Total Protein Albumin Prealbumin LDL Cholesterol Direct HDL Cholesterol Arterial Blood Glucose Arterial Blood Ionized Calcium Urine WBC (Auto) 03/26/20 03/26/20 03/26/20 11:38 18:44 23:06 WBC RBC Hgb Hct MCV MCH RDW Plt Count Lymph % (Auto) [place] % (Auto) Lymph # (Auto) [place] # (Auto) Seg Neutrophils % Seg Neuts % (Manual) Lymphocytes % (Manual) Monocytes % (Manual) Basophils % (Manual) Seg Neutrophils # Seg Neutrophils # Man Lymphocytes # (Manual) Monocytes # (Manual) Eosinophils # (Manual) Basophils # (Manual) PT INR D-Dimer ABG pH POC ABG pCO2 POC ABG pO2 ABG pO2 ABG HCO3 ABG O2 Saturation ABG Base Excess ABG Hemoglobin ABG Oxyhemoglobin ABG Potassium ABG Glucose Oxyhemoglobin Carboxyhemoglobin Sodium Potassium Chloride Carbon Dioxide BUN Creatinine Glucose POC Glucose 120 H 111 H 134 H Calcium Ferritin Total Bilirubin Alkaline Phosphatase Lactate Dehydrogenase Total Creatine Kinase CK-MB (CK-2) Rel Index Troponin T C-Reactive Protein Total Protein Albumin Prealbumin LDL Cholesterol Direct HDL Cholesterol Arterial Blood Glucose Arterial Blood Ionized Calcium Urine WBC (Auto) 03/27/20 03/27/20 03/27/20 05:41 05:59 05:59 WBC 18.6 H RBC Hgb 10.1 L Hct 31.4 L MCV MCH RDW 17.2 H Plt Count Lymph % (Auto) 8.0 L [place] % (Auto) Lymph # (Auto) [place] # (Auto) 1.2 H Seg Neutrophils % 84.7 H Seg Neuts % (Manual) Lymphocytes % (Manual) Monocytes % (Manual) Basophils % (Manual) Seg Neutrophils # 15.8 H Seg Neutrophils # Man Lymphocytes # (Manual) Monocytes # (Manual) Eosinophils # (Manual) Basophils # (Manual) PT INR D-Dimer ABG pH POC ABG pCO2 POC ABG pO2 ABG pO2 ABG HCO3 ABG O2 Saturation ABG Base Excess ABG Hemoglobin ABG Oxyhemoglobin ABG Potassium ABG Glucose Oxyhemoglobin Carboxyhemoglobin Sodium Potassium Chloride Carbon Dioxide 34 H BUN Creatinine < 0.2 L Glucose 127 H POC Glucose 129 H Calcium Ferritin Total Bilirubin Alkaline Phosphatase Lactate Dehydrogenase Total Creatine Kinase CK-MB (CK-2) Rel Index Troponin T C-Reactive Protein Total Protein Albumin Prealbumin LDL Cholesterol Direct HDL Cholesterol Arterial Blood Glucose Arterial Blood Ionized Calcium Urine WBC (Auto) 03/27/20 03/27/20 03/28/20 17:28 23:22 05:23 WBC RBC Hgb Hct MCV MCH RDW Plt Count Lymph % (Auto) [place] % (Auto) Lymph # (Auto) [place] # (Auto) Seg Neutrophils % Seg Neuts % (Manual) Lymphocytes % (Manual) Monocytes % (Manual) Basophils % (Manual) Seg Neutrophils # Seg Neutrophils # Man Lymphocytes # (Manual) Monocytes # (Manual) Eosinophils # (Manual) Basophils # (Manual) PT INR D-Dimer ABG pH POC ABG pCO2 POC ABG pO2 ABG pO2 ABG HCO3 ABG O2 Saturation ABG Base Excess ABG Hemoglobin ABG Oxyhemoglobin ABG Potassium ABG Glucose Oxyhemoglobin Carboxyhemoglobin Sodium Potassium Chloride Carbon Dioxide BUN Creatinine Glucose POC Glucose 108 H 119 H 129 H Calcium Ferritin Total Bilirubin Alkaline Phosphatase Lactate Dehydrogenase Total Creatine Kinase CK-MB (CK-2) Rel Index Troponin T C-Reactive Protein Total Protein Albumin Prealbumin LDL Cholesterol Direct HDL Cholesterol Arterial Blood Glucose Arterial Blood Ionized Calcium Urine WBC (Auto) 03/28/20 03/28/20 03/28/20 10:28 10:28 11:36 WBC 23.6 H RBC 3.62 L Hgb 10.0 L Hct 30.8 L MCV MCH RDW 16.4 H Plt Count Lymph % (Auto) [place] % (Auto) Lymph # (Auto) [place] # (Auto) Seg Neutrophils % Seg Neuts % (Manual) 89.0 H Lymphocytes % (Manual) 5.0 L Monocytes % (Manual) Basophils % (Manual) Seg Neutrophils # Seg Neutrophils # Man 21.0 H Lymphocytes # (Manual) Monocytes # (Manual) 1.2 H Eosinophils # (Manual) Basophils # (Manual) 0.2 H PT INR D-Dimer ABG pH POC ABG pCO2 POC ABG pO2 ABG pO2 ABG HCO3 ABG O2 Saturation ABG Base Excess ABG Hemoglobin ABG Oxyhemoglobin ABG Potassium ABG Glucose Oxyhemoglobin Carboxyhemoglobin Sodium 134 L Potassium Chloride 94.2 L Carbon Dioxide 35 H BUN Creatinine < 0.2 L Glucose 134 H POC Glucose Calcium Ferritin Total Bilirubin Alkaline Phosphatase Lactate Dehydrogenase Total Creatine Kinase CK-MB (CK-2) Rel Index Troponin T C-Reactive Protein Total Protein Albumin Prealbumin LDL Cholesterol Direct HDL Cholesterol Arterial Blood Glucose Arterial Blood Ionized Calcium Urine WBC (Auto) 39.0 H 03/28/20 03/28/20 03/28/20 11:51 17:08 17:17 WBC RBC Hgb Hct MCV MCH RDW Plt Count Lymph % (Auto) [place] % (Auto) Lymph # (Auto) [place] # (Auto) Seg Neutrophils % Seg Neuts % (Manual) Lymphocytes % (Manual) Monocytes % (Manual) Basophils % (Manual) Seg Neutrophils # Seg Neutrophils # Man Lymphocytes # (Manual) Monocytes # (Manual) Eosinophils # (Manual) Basophils # (Manual) PT INR D-Dimer ABG pH POC ABG pCO2 POC ABG pO2 ABG pO2 ABG HCO3 ABG O2 Saturation ABG Base Excess ABG Hemoglobin ABG Oxyhemoglobin ABG Potassium ABG Glucose Oxyhemoglobin Carboxyhemoglobin Sodium Potassium Chloride Carbon Dioxide BUN Creatinine Glucose POC Glucose 123 H 112 H Calcium Ferritin Total Bilirubin Alkaline Phosphatase Lactate Dehydrogenase Total Creatine Kinase 47 L CK-MB (CK-2) Rel Index 4.6 H Troponin T 0.090 H C-Reactive Protein Total Protein Albumin Prealbumin LDL Cholesterol Direct HDL Cholesterol Arterial Blood Glucose Arterial Blood Ionized Calcium Urine WBC (Auto) 03/28/20 03/29/20 03/29/20 23:22 05:22 10:58 WBC RBC Hgb Hct MCV MCH RDW Plt Count Lymph % (Auto) [place] % (Auto) Lymph # (Auto) [place] # (Auto) Seg Neutrophils % Seg Neuts % (Manual) Lymphocytes % (Manual) Monocytes % (Manual) Basophils % (Manual) Seg Neutrophils # Seg Neutrophils # Man Lymphocytes # (Manual) Monocytes # (Manual) Eosinophils # (Manual) Basophils # (Manual) PT INR D-Dimer ABG pH POC ABG pCO2 POC ABG pO2 ABG pO2 ABG HCO3 ABG O2 Saturation ABG Base Excess ABG Hemoglobin ABG Oxyhemoglobin ABG Potassium ABG Glucose Oxyhemoglobin Carboxyhemoglobin Sodium Potassium Chloride Carbon Dioxide BUN Creatinine Glucose POC Glucose 122 H 116 H 133 H Calcium Ferritin Total Bilirubin Alkaline Phosphatase Lactate Dehydrogenase Total Creatine Kinase CK-MB (CK-2) Rel Index Troponin T C-Reactive Protein Total Protein Albumin Prealbumin LDL Cholesterol Direct HDL Cholesterol Arterial Blood Glucose Arterial Blood Ionized Calcium Urine WBC (Auto) 03/29/20 03/29/20 03/30/20 17:18 23:14 04:57 WBC RBC Hgb Hct MCV MCH RDW Plt Count Lymph % (Auto) [place] % (Auto) Lymph # (Auto) [place] # (Auto) Seg Neutrophils % Seg Neuts % (Manual) Lymphocytes % (Manual) Monocytes % (Manual) Basophils % (Manual) Seg Neutrophils # Seg Neutrophils # Man Lymphocytes # (Manual) Monocytes # (Manual) Eosinophils # (Manual) Basophils # (Manual) PT INR D-Dimer ABG pH POC ABG pCO2 POC ABG pO2 ABG pO2 ABG HCO3 ABG O2 Saturation ABG Base Excess ABG Hemoglobin ABG Oxyhemoglobin ABG Potassium ABG Glucose Oxyhemoglobin Carboxyhemoglobin Sodium Potassium Chloride Carbon Dioxide BUN Creatinine Glucose POC Glucose 111 H 114 H 130 H Calcium Ferritin Total Bilirubin Alkaline Phosphatase Lactate Dehydrogenase Total Creatine Kinase CK-MB (CK-2) Rel Index Troponin T C-Reactive Protein Total Protein Albumin Prealbumin LDL Cholesterol Direct HDL Cholesterol Arterial Blood Glucose Arterial Blood Ionized Calcium Urine WBC (Auto) 03/30/20 03/30/20 03/30/20 11:38 14:47 14:47 WBC 19.9 H RBC Hgb 10.9 L Hct 34.4 L MCV MCH 27 L RDW 16.5 H Plt Count 441 H Lymph % (Auto) 6.4 L [place] % (Auto) Lymph # (Auto) [place] # (Auto) 1.4 H Seg Neutrophils % 86.1 H Seg Neuts % (Manual) Lymphocytes % (Manual) Monocytes % (Manual) Basophils % (Manual) Seg Neutrophils # 17.1 H Seg Neutrophils # Man Lymphocytes # (Manual) Monocytes # (Manual) Eosinophils # (Manual) Basophils # (Manual) PT INR D-Dimer ABG pH POC ABG pCO2 POC ABG pO2 ABG pO2 ABG HCO3 ABG O2 Saturation ABG Base Excess ABG Hemoglobin ABG Oxyhemoglobin ABG Potassium ABG Glucose Oxyhemoglobin Carboxyhemoglobin Sodium 133 L Potassium Chloride 94.6 L Carbon Dioxide 33 H BUN Creatinine < 0.2 L Glucose 194 H POC Glucose 139 H Calcium Ferritin Total Bilirubin Alkaline Phosphatase Lactate Dehydrogenase Total Creatine Kinase CK-MB (CK-2) Rel Index Troponin T C-Reactive Protein Total Protein Albumin 2.8 L Prealbumin LDL Cholesterol Direct HDL Cholesterol Arterial Blood Glucose Arterial Blood Ionized Calcium Urine WBC (Auto) 03/30/20 03/31/20 03/31/20 17:07 05:02 15:21 WBC RBC Hgb Hct MCV MCH RDW Plt Count Lymph % (Auto) [place] % (Auto) Lymph # (Auto) [place] # (Auto) Seg Neutrophils % Seg Neuts % (Manual) Lymphocytes % (Manual) Monocytes % (Manual) Basophils % (Manual) Seg Neutrophils # Seg Neutrophils # Man Lymphocytes # (Manual) Monocytes # (Manual) Eosinophils # (Manual) Basophils # (Manual) PT INR D-Dimer ABG pH POC ABG pCO2 POC ABG pO2 ABG pO2 ABG HCO3 ABG O2 Saturation ABG Base Excess ABG Hemoglobin ABG Oxyhemoglobin ABG Potassium ABG Glucose Oxyhemoglobin Carboxyhemoglobin Sodium Potassium Chloride Carbon Dioxide BUN Creatinine Glucose POC Glucose 163 H 108 H 110 H Calcium Ferritin Total Bilirubin Alkaline Phosphatase Lactate Dehydrogenase Total Creatine Kinase CK-MB (CK-2) Rel Index Troponin T C-Reactive Protein Total Protein Albumin Prealbumin LDL Cholesterol Direct HDL Cholesterol Arterial Blood Glucose Arterial Blood Ionized Calcium Urine WBC (Auto) 03/31/20 03/31/20 04/01/20 17:58 23:19 05:09 WBC RBC Hgb Hct MCV MCH RDW Plt Count Lymph % (Auto) [place] % (Auto) Lymph # (Auto) [place] # (Auto) Seg Neutrophils % Seg Neuts % (Manual) Lymphocytes % (Manual) Monocytes % (Manual) Basophils % (Manual) Seg Neutrophils # Seg Neutrophils # Man Lymphocytes # (Manual) Monocytes # (Manual) Eosinophils # (Manual) Basophils # (Manual) PT INR D-Dimer ABG pH POC ABG pCO2 POC ABG pO2 ABG pO2 ABG HCO3 ABG O2 Saturation ABG Base Excess ABG Hemoglobin ABG Oxyhemoglobin ABG Potassium ABG Glucose Oxyhemoglobin Carboxyhemoglobin Sodium Potassium Chloride Carbon Dioxide BUN Creatinine Glucose POC Glucose 110 H 131 H 124 H Calcium Ferritin Total Bilirubin Alkaline Phosphatase Lactate Dehydrogenase Total Creatine Kinase CK-MB (CK-2) Rel Index Troponin T C-Reactive Protein Total Protein Albumin Prealbumin LDL Cholesterol Direct HDL Cholesterol Arterial Blood Glucose Arterial Blood Ionized Calcium Urine WBC (Auto) 04/01/20 04/01/20 04/01/20 11:50 17:01 23:21 WBC RBC Hgb Hct MCV MCH RDW Plt Count Lymph % (Auto) [place] % (Auto) Lymph # (Auto) [place] # (Auto) Seg Neutrophils % Seg Neuts % (Manual) Lymphocytes % (Manual) Monocytes % (Manual) Basophils % (Manual) Seg Neutrophils # Seg Neutrophils # Man Lymphocytes # (Manual) Monocytes # (Manual) Eosinophils # (Manual) Basophils # (Manual) PT INR D-Dimer ABG pH POC ABG pCO2 POC ABG pO2 ABG pO2 ABG HCO3 ABG O2 Saturation ABG Base Excess ABG Hemoglobin ABG Oxyhemoglobin ABG Potassium ABG Glucose Oxyhemoglobin Carboxyhemoglobin Sodium Potassium Chloride Carbon Dioxide BUN Creatinine Glucose POC Glucose 136 H 115 H 124 H Calcium Ferritin Total Bilirubin Alkaline Phosphatase Lactate Dehydrogenase Total Creatine Kinase CK-MB (CK-2) Rel Index Troponin T C-Reactive Protein Total Protein Albumin Prealbumin LDL Cholesterol Direct HDL Cholesterol Arterial Blood Glucose Arterial Blood Ionized Calcium Urine WBC (Auto) 04/02/20 04/02/20 04/02/20 05:27 11:58 17:58 WBC RBC Hgb Hct MCV MCH RDW Plt Count Lymph % (Auto) [place] % (Auto) Lymph # (Auto) [place] # (Auto) Seg Neutrophils % Seg Neuts % (Manual) Lymphocytes % (Manual) Monocytes % (Manual) Basophils % (Manual) Seg Neutrophils # Seg Neutrophils # Man Lymphocytes # (Manual) Monocytes # (Manual) Eosinophils # (Manual) Basophils # (Manual) PT INR D-Dimer ABG pH POC ABG pCO2 POC ABG pO2 ABG pO2 ABG HCO3 ABG O2 Saturation ABG Base Excess ABG Hemoglobin ABG Oxyhemoglobin ABG Potassium ABG Glucose Oxyhemoglobin Carboxyhemoglobin Sodium Potassium Chloride Carbon Dioxide BUN Creatinine Glucose POC Glucose 117 H 133 H 122 H Calcium Ferritin Total Bilirubin Alkaline Phosphatase Lactate Dehydrogenase Total Creatine Kinase CK-MB (CK-2) Rel Index Troponin T C-Reactive Protein Total Protein Albumin Prealbumin LDL Cholesterol Direct HDL Cholesterol Arterial Blood Glucose Arterial Blood Ionized Calcium Urine WBC (Auto) 04/02/20 04/03/20 04/03/20 23:12 05:11 11:11 WBC RBC Hgb Hct MCV MCH RDW Plt Count Lymph % (Auto) [place] % (Auto) Lymph # (Auto) [place] # (Auto) Seg Neutrophils % Seg Neuts % (Manual) Lymphocytes % (Manual) Monocytes % (Manual) Basophils % (Manual) Seg Neutrophils # Seg Neutrophils # Man Lymphocytes # (Manual) Monocytes # (Manual) Eosinophils # (Manual) Basophils # (Manual) PT INR D-Dimer ABG pH POC ABG pCO2 POC ABG pO2 ABG pO2 ABG HCO3 ABG O2 Saturation ABG Base Excess ABG Hemoglobin ABG Oxyhemoglobin ABG Potassium ABG Glucose Oxyhemoglobin Carboxyhemoglobin Sodium Potassium Chloride Carbon Dioxide BUN Creatinine Glucose POC Glucose 130 H 139 H 136 H Calcium Ferritin Total Bilirubin Alkaline Phosphatase Lactate Dehydrogenase Total Creatine Kinase CK-MB (CK-2) Rel Index Troponin T C-Reactive Protein Total Protein Albumin Prealbumin LDL Cholesterol Direct HDL Cholesterol Arterial Blood Glucose Arterial Blood Ionized Calcium Urine WBC (Auto) 04/03/20 04/03/20 04/04/20 16:51 23:25 05:29 WBC RBC Hgb Hct MCV MCH RDW Plt Count Lymph % (Auto) [place] % (Auto) Lymph # (Auto) [place] # (Auto) Seg Neutrophils % Seg Neuts % (Manual) Lymphocytes % (Manual) Monocytes % (Manual) Basophils % (Manual) Seg Neutrophils # Seg Neutrophils # Man Lymphocytes # (Manual) Monocytes # (Manual) Eosinophils # (Manual) Basophils # (Manual) PT INR D-Dimer ABG pH POC ABG pCO2 POC ABG pO2 ABG pO2 ABG HCO3 ABG O2 Saturation ABG Base Excess ABG Hemoglobin ABG Oxyhemoglobin ABG Potassium ABG Glucose Oxyhemoglobin Carboxyhemoglobin Sodium Potassium Chloride Carbon Dioxide BUN Creatinine Glucose POC Glucose 118 H 111 H 126 H Calcium Ferritin Total Bilirubin Alkaline Phosphatase Lactate Dehydrogenase Total Creatine Kinase CK-MB (CK-2) Rel Index Troponin T C-Reactive Protein Total Protein Albumin Prealbumin LDL Cholesterol Direct HDL Cholesterol Arterial Blood Glucose Arterial Blood Ionized Calcium Urine WBC (Auto) 04/04/20 04/04/20 04/04/20 11:47 17:41 23:05 WBC RBC Hgb Hct MCV MCH RDW Plt Count Lymph % (Auto) [place] % (Auto) Lymph # (Auto) [place] # (Auto) Seg Neutrophils % Seg Neuts % (Manual) Lymphocytes % (Manual) Monocytes % (Manual) Basophils % (Manual) Seg Neutrophils # Seg Neutrophils # Man Lymphocytes # (Manual) Monocytes # (Manual) Eosinophils # (Manual) Basophils # (Manual) PT INR D-Dimer ABG pH POC ABG pCO2 POC ABG pO2 ABG pO2 ABG HCO3 ABG O2 Saturation ABG Base Excess ABG Hemoglobin ABG Oxyhemoglobin ABG Potassium ABG Glucose Oxyhemoglobin Carboxyhemoglobin Sodium Potassium Chloride Carbon Dioxide BUN Creatinine Glucose POC Glucose 123 H 120 H 119 H Calcium Ferritin Total Bilirubin Alkaline Phosphatase Lactate Dehydrogenase Total Creatine Kinase CK-MB (CK-2) Rel Index Troponin T C-Reactive Protein Total Protein Albumin Prealbumin LDL Cholesterol Direct HDL Cholesterol Arterial Blood Glucose Arterial Blood Ionized Calcium Urine WBC (Auto) 04/05/20 04/05/20 04/05/20 05:14 12:16 18:48 WBC RBC Hgb Hct MCV MCH RDW Plt Count Lymph % (Auto) [place] % (Auto) Lymph # (Auto) [place] # (Auto) Seg Neutrophils % Seg Neuts % (Manual) Lymphocytes % (Manual) Monocytes % (Manual) Basophils % (Manual) Seg Neutrophils # Seg Neutrophils # Man Lymphocytes # (Manual) Monocytes # (Manual) Eosinophils # (Manual) Basophils # (Manual) PT INR D-Dimer ABG pH POC ABG pCO2 POC ABG pO2 ABG pO2 ABG HCO3 ABG O2 Saturation ABG Base Excess ABG Hemoglobin ABG Oxyhemoglobin ABG Potassium ABG Glucose Oxyhemoglobin Carboxyhemoglobin Sodium Potassium Chloride Carbon Dioxide BUN Creatinine Glucose POC Glucose 123 H 148 H 106 H Calcium Ferritin Total Bilirubin Alkaline Phosphatase Lactate Dehydrogenase Total Creatine Kinase CK-MB (CK-2) Rel Index Troponin T C-Reactive Protein Total Protein Albumin Prealbumin LDL Cholesterol Direct HDL Cholesterol Arterial Blood Glucose Arterial Blood Ionized Calcium Urine WBC (Auto) 04/06/20 04/06/20 04/06/20 00:47 03:26 08:24 WBC RBC Hgb Hct MCV MCH RDW Plt Count Lymph % (Auto) [place] % (Auto) Lymph # (Auto) [place] # (Auto) Seg Neutrophils % Seg Neuts % (Manual) Lymphocytes % (Manual) Monocytes % (Manual) Basophils % (Manual) Seg Neutrophils # Seg Neutrophils # Man Lymphocytes # (Manual) Monocytes # (Manual) Eosinophils # (Manual) Basophils # (Manual) PT INR D-Dimer ABG pH POC ABG pCO2 POC ABG pO2 ABG pO2 ABG HCO3 ABG O2 Saturation ABG Base Excess ABG Hemoglobin ABG Oxyhemoglobin ABG Potassium ABG Glucose Oxyhemoglobin Carboxyhemoglobin Sodium Potassium Chloride Carbon Dioxide BUN Creatinine Glucose POC Glucose 129 H 134 H 131 H Calcium Ferritin Total Bilirubin Alkaline Phosphatase Lactate Dehydrogenase Total Creatine Kinase CK-MB (CK-2) Rel Index Troponin T C-Reactive Protein Total Protein Albumin Prealbumin LDL Cholesterol Direct HDL Cholesterol Arterial Blood Glucose Arterial Blood Ionized Calcium Urine WBC (Auto) 04/06/20 04/06/20 04/06/20 11:16 16:27 23:01 WBC RBC Hgb Hct MCV MCH RDW Plt Count Lymph % (Auto) [place] % (Auto) Lymph # (Auto) [place] # (Auto) Seg Neutrophils % Seg Neuts % (Manual) Lymphocytes % (Manual) Monocytes % (Manual) Basophils % (Manual) Seg Neutrophils # Seg Neutrophils # Man Lymphocytes # (Manual) Monocytes # (Manual) Eosinophils # (Manual) Basophils # (Manual) PT INR D-Dimer ABG pH POC ABG pCO2 POC ABG pO2 ABG pO2 ABG HCO3 ABG O2 Saturation ABG Base Excess ABG Hemoglobin ABG Oxyhemoglobin ABG Potassium ABG Glucose Oxyhemoglobin Carboxyhemoglobin Sodium Potassium Chloride Carbon Dioxide BUN Creatinine Glucose POC Glucose 131 H 107 H 125 H Calcium Ferritin Total Bilirubin Alkaline Phosphatase Lactate Dehydrogenase Total Creatine Kinase CK-MB (CK-2) Rel Index Troponin T C-Reactive Protein Total Protein Albumin Prealbumin LDL Cholesterol Direct HDL Cholesterol Arterial Blood Glucose Arterial Blood Ionized Calcium Urine WBC (Auto) 04/07/20 04/07/20 04/07/20 05:24 12:41 17:40 WBC RBC Hgb Hct MCV MCH RDW Plt Count Lymph % (Auto) [place] % (Auto) Lymph # (Auto) [place] # (Auto) Seg Neutrophils % Seg Neuts % (Manual) Lymphocytes % (Manual) Monocytes % (Manual) Basophils % (Manual) Seg Neutrophils # Seg Neutrophils # Man Lymphocytes # (Manual) Monocytes # (Manual) Eosinophils # (Manual) Basophils # (Manual) PT INR D-Dimer ABG pH POC ABG pCO2 POC ABG pO2 ABG pO2 ABG HCO3 ABG O2 Saturation ABG Base Excess ABG Hemoglobin ABG Oxyhemoglobin ABG Potassium ABG Glucose Oxyhemoglobin Carboxyhemoglobin Sodium Potassium Chloride Carbon Dioxide BUN Creatinine Glucose POC Glucose 125 H 145 H 123 H Calcium Ferritin Total Bilirubin Alkaline Phosphatase Lactate Dehydrogenase Total Creatine Kinase CK-MB (CK-2) Rel Index Troponin T C-Reactive Protein Total Protein Albumin Prealbumin LDL Cholesterol Direct HDL Cholesterol Arterial Blood Glucose Arterial Blood Ionized Calcium Urine WBC (Auto) 04/07/20 04/08/20 04/08/20 23:22 05:40 11:29 WBC RBC Hgb Hct MCV MCH RDW Plt Count Lymph % (Auto) [place] % (Auto) Lymph # (Auto) [place] # (Auto) Seg Neutrophils % Seg Neuts % (Manual) Lymphocytes % (Manual) Monocytes % (Manual) Basophils % (Manual) Seg Neutrophils # Seg Neutrophils # Man Lymphocytes # (Manual) Monocytes # (Manual) Eosinophils # (Manual) Basophils # (Manual) PT INR D-Dimer ABG pH POC ABG pCO2 POC ABG pO2 ABG pO2 ABG HCO3 ABG O2 Saturation ABG Base Excess ABG Hemoglobin ABG Oxyhemoglobin ABG Potassium ABG Glucose Oxyhemoglobin Carboxyhemoglobin Sodium Potassium Chloride Carbon Dioxide BUN Creatinine Glucose POC Glucose 133 H 125 H 116 H Calcium Ferritin Total Bilirubin Alkaline Phosphatase Lactate Dehydrogenase Total Creatine Kinase CK-MB (CK-2) Rel Index Troponin T C-Reactive Protein Total Protein Albumin Prealbumin LDL Cholesterol Direct HDL Cholesterol Arterial Blood Glucose Arterial Blood Ionized Calcium Urine WBC (Auto) 04/08/20 04/09/20 04/09/20 17:43 05:47 12:22 WBC RBC Hgb Hct MCV MCH RDW Plt Count Lymph % (Auto) [place] % (Auto) Lymph # (Auto) [place] # (Auto) Seg Neutrophils % Seg Neuts % (Manual) Lymphocytes % (Manual) Monocytes % (Manual) Basophils % (Manual) Seg Neutrophils # Seg Neutrophils # Man Lymphocytes # (Manual) Monocytes # (Manual) Eosinophils # (Manual) Basophils # (Manual) PT INR D-Dimer ABG pH POC ABG pCO2 POC ABG pO2 ABG pO2 ABG HCO3 ABG O2 Saturation ABG Base Excess ABG Hemoglobin ABG Oxyhemoglobin ABG Potassium ABG Glucose Oxyhemoglobin Carboxyhemoglobin Sodium Potassium Chloride Carbon Dioxide BUN Creatinine Glucose POC Glucose 123 H 108 H 116 H Calcium Ferritin Total Bilirubin Alkaline Phosphatase Lactate Dehydrogenase Total Creatine Kinase CK-MB (CK-2) Rel Index Troponin T C-Reactive Protein Total Protein Albumin Prealbumin LDL Cholesterol Direct HDL Cholesterol Arterial Blood Glucose Arterial Blood Ionized Calcium Urine WBC (Auto) 04/09/20 04/09/20 04/10/20 17:24 23:52 06:10 WBC RBC Hgb Hct MCV MCH RDW Plt Count Lymph % (Auto) [place] % (Auto) Lymph # (Auto) [place] # (Auto) Seg Neutrophils % Seg Neuts % (Manual) Lymphocytes % (Manual) Monocytes % (Manual) Basophils % (Manual) Seg Neutrophils # Seg Neutrophils # Man Lymphocytes # (Manual) Monocytes # (Manual) Eosinophils # (Manual) Basophils # (Manual) PT INR D-Dimer ABG pH POC ABG pCO2 POC ABG pO2 ABG pO2 ABG HCO3 ABG O2 Saturation ABG Base Excess ABG Hemoglobin ABG Oxyhemoglobin ABG Potassium ABG Glucose Oxyhemoglobin Carboxyhemoglobin Sodium Potassium Chloride Carbon Dioxide BUN Creatinine Glucose POC Glucose 108 H 126 H 122 H Calcium Ferritin Total Bilirubin Alkaline Phosphatase Lactate Dehydrogenase Total Creatine Kinase CK-MB (CK-2) Rel Index Troponin T C-Reactive Protein Total Protein Albumin Prealbumin LDL Cholesterol Direct HDL Cholesterol Arterial Blood Glucose Arterial Blood Ionized Calcium Urine WBC (Auto) 04/10/20 04/10/20 04/10/20 11:27 18:11 23:24 WBC RBC Hgb Hct MCV MCH RDW Plt Count Lymph % (Auto) [place] % (Auto) Lymph # (Auto) [place] # (Auto) Seg Neutrophils % Seg Neuts % (Manual) Lymphocytes % (Manual) Monocytes % (Manual) Basophils % (Manual) Seg Neutrophils # Seg Neutrophils # Man Lymphocytes # (Manual) Monocytes # (Manual) Eosinophils # (Manual) Basophils # (Manual) PT INR D-Dimer ABG pH POC ABG pCO2 POC ABG pO2 ABG pO2 ABG HCO3 ABG O2 Saturation ABG Base Excess ABG Hemoglobin ABG Oxyhemoglobin ABG Potassium ABG Glucose Oxyhemoglobin Carboxyhemoglobin Sodium Potassium Chloride Carbon Dioxide BUN Creatinine Glucose POC Glucose 129 H 125 H 107 H Calcium Ferritin Total Bilirubin Alkaline Phosphatase Lactate Dehydrogenase Total Creatine Kinase CK-MB (CK-2) Rel Index Troponin T C-Reactive Protein Total Protein Albumin Prealbumin LDL Cholesterol Direct HDL Cholesterol Arterial Blood Glucose Arterial Blood Ionized Calcium Urine WBC (Auto) 04/11/20 04/11/20 04/11/20 05:28 11:46 23:49 WBC RBC Hgb Hct MCV MCH RDW Plt Count Lymph % (Auto) [place] % (Auto) Lymph # (Auto) [place] # (Auto) Seg Neutrophils % Seg Neuts % (Manual) Lymphocytes % (Manual) Monocytes % (Manual) Basophils % (Manual) Seg Neutrophils # Seg Neutrophils # Man Lymphocytes # (Manual) Monocytes # (Manual) Eosinophils # (Manual) Basophils # (Manual) PT INR D-Dimer ABG pH POC ABG pCO2 POC ABG pO2 ABG pO2 ABG HCO3 ABG O2 Saturation ABG Base Excess ABG Hemoglobin ABG Oxyhemoglobin ABG Potassium ABG Glucose Oxyhemoglobin Carboxyhemoglobin Sodium Potassium Chloride Carbon Dioxide BUN Creatinine Glucose POC Glucose 122 H 122 H 116 H Calcium Ferritin Total Bilirubin Alkaline Phosphatase Lactate Dehydrogenase Total Creatine Kinase CK-MB (CK-2) Rel Index Troponin T C-Reactive Protein Total Protein Albumin Prealbumin LDL Cholesterol Direct HDL Cholesterol Arterial Blood Glucose Arterial Blood Ionized Calcium Urine WBC (Auto) 04/12/20 04/12/20 04/12/20 09:07 09:07 11:39 WBC 13.1 H RBC 3.59 L Hgb 9.5 L Hct 29.8 L MCV 83 L MCH 26 L RDW 16.6 H Plt Count 591 H Lymph % (Auto) [place] % (Auto) Lymph # (Auto) [place] # (Auto) Seg Neutrophils % Seg Neuts % (Manual) 86.0 H Lymphocytes % (Manual) 7.0 L Monocytes % (Manual) Basophils % (Manual) Seg Neutrophils # Seg Neutrophils # Man 11.3 H Lymphocytes # (Manual) 0.9 L Monocytes # (Manual) Eosinophils # (Manual) Basophils # (Manual) PT INR D-Dimer ABG pH POC ABG pCO2 POC ABG pO2 ABG pO2 ABG HCO3 ABG O2 Saturation ABG Base Excess ABG Hemoglobin ABG Oxyhemoglobin ABG Potassium ABG Glucose Oxyhemoglobin Carboxyhemoglobin Sodium Potassium Chloride Carbon Dioxide 36 H BUN Creatinine < 0.2 L Glucose 132 H POC Glucose 136 H Calcium Ferritin Total Bilirubin Alkaline Phosphatase Lactate Dehydrogenase Total Creatine Kinase CK-MB (CK-2) Rel Index Troponin T C-Reactive Protein Total Protein Albumin 2.7 L Prealbumin LDL Cholesterol Direct HDL Cholesterol Arterial Blood Glucose Arterial Blood Ionized Calcium Urine WBC (Auto) 04/12/20 04/12/20 04/13/20 18:13 23:07 05:45 WBC RBC Hgb Hct MCV MCH RDW Plt Count Lymph % (Auto) [place] % (Auto) Lymph # (Auto) [place] # (Auto) Seg Neutrophils % Seg Neuts % (Manual) Lymphocytes % (Manual) Monocytes % (Manual) Basophils % (Manual) Seg Neutrophils # Seg Neutrophils # Man Lymphocytes # (Manual) Monocytes # (Manual) Eosinophils # (Manual) Basophils # (Manual) PT INR D-Dimer ABG pH POC ABG pCO2 POC ABG pO2 ABG pO2 ABG HCO3 ABG O2 Saturation ABG Base Excess ABG Hemoglobin ABG Oxyhemoglobin ABG Potassium ABG Glucose Oxyhemoglobin Carboxyhemoglobin Sodium Potassium Chloride Carbon Dioxide BUN Creatinine Glucose POC Glucose 107 H 106 H 125 H Calcium Ferritin Total Bilirubin Alkaline Phosphatase Lactate Dehydrogenase Total Creatine Kinase CK-MB (CK-2) Rel Index Troponin T C-Reactive Protein Total Protein Albumin Prealbumin LDL Cholesterol Direct HDL Cholesterol Arterial Blood Glucose Arterial Blood Ionized Calcium Urine WBC (Auto) 04/13/20 04/13/20 04/13/20 11:18 17:56 23:33 WBC RBC Hgb Hct MCV MCH RDW Plt Count Lymph % (Auto) [place] % (Auto) Lymph # (Auto) [place] # (Auto) Seg Neutrophils % Seg Neuts % (Manual) Lymphocytes % (Manual) Monocytes % (Manual) Basophils % (Manual) Seg Neutrophils # Seg Neutrophils # Man Lymphocytes # (Manual) Monocytes # (Manual) Eosinophils # (Manual) Basophils # (Manual) PT INR D-Dimer ABG pH POC ABG pCO2 POC ABG pO2 ABG pO2 ABG HCO3 ABG O2 Saturation ABG Base Excess ABG Hemoglobin ABG Oxyhemoglobin ABG Potassium ABG Glucose Oxyhemoglobin Carboxyhemoglobin Sodium Potassium Chloride Carbon Dioxide BUN Creatinine Glucose POC Glucose 133 H 110 H 114 H Calcium Ferritin Total Bilirubin Alkaline Phosphatase Lactate Dehydrogenase Total Creatine Kinase CK-MB (CK-2) Rel Index Troponin T C-Reactive Protein Total Protein Albumin Prealbumin LDL Cholesterol Direct HDL Cholesterol Arterial Blood Glucose Arterial Blood Ionized Calcium Urine WBC (Auto) 04/14/20 04/14/20 04/14/20 05:58 11:45 17:48 WBC RBC Hgb Hct MCV MCH RDW Plt Count Lymph % (Auto) [place] % (Auto) Lymph # (Auto) [place] # (Auto) Seg Neutrophils % Seg Neuts % (Manual) Lymphocytes % (Manual) Monocytes % (Manual) Basophils % (Manual) Seg Neutrophils # Seg Neutrophils # Man Lymphocytes # (Manual) Monocytes # (Manual) Eosinophils # (Manual) Basophils # (Manual) PT INR D-Dimer ABG pH POC ABG pCO2 POC ABG pO2 ABG pO2 ABG HCO3 ABG O2 Saturation ABG Base Excess ABG Hemoglobin ABG Oxyhemoglobin ABG Potassium ABG Glucose Oxyhemoglobin Carboxyhemoglobin Sodium Potassium Chloride Carbon Dioxide BUN Creatinine Glucose POC Glucose 115 H 122 H 124 H Calcium Ferritin Total Bilirubin Alkaline Phosphatase Lactate Dehydrogenase Total Creatine Kinase CK-MB (CK-2) Rel Index Troponin T C-Reactive Protein Total Protein Albumin Prealbumin LDL Cholesterol Direct HDL Cholesterol Arterial Blood Glucose Arterial Blood Ionized Calcium Urine WBC (Auto) 04/15/20 04/15/20 04/15/20 00:11 05:38 11:31 WBC RBC Hgb Hct MCV MCH RDW Plt Count Lymph % (Auto) [place] % (Auto) Lymph # (Auto) [place] # (Auto) Seg Neutrophils % Seg Neuts % (Manual) Lymphocytes % (Manual) Monocytes % (Manual) Basophils % (Manual) Seg Neutrophils # Seg Neutrophils # Man Lymphocytes # (Manual) Monocytes # (Manual) Eosinophils # (Manual) Basophils # (Manual) PT INR D-Dimer ABG pH POC ABG pCO2 POC ABG pO2 ABG pO2 ABG HCO3 ABG O2 Saturation ABG Base Excess ABG Hemoglobin ABG Oxyhemoglobin ABG Potassium ABG Glucose Oxyhemoglobin Carboxyhemoglobin Sodium Potassium Chloride Carbon Dioxide BUN Creatinine Glucose POC Glucose 120 H 109 H 123 H Calcium Ferritin Total Bilirubin Alkaline Phosphatase Lactate Dehydrogenase Total Creatine Kinase CK-MB (CK-2) Rel Index Troponin T C-Reactive Protein Total Protein Albumin Prealbumin LDL Cholesterol Direct HDL Cholesterol Arterial Blood Glucose Arterial Blood Ionized Calcium Urine WBC (Auto) 04/15/20 04/16/20 04/16/20 17:35 06:00 11:29 WBC RBC Hgb Hct MCV MCH RDW Plt Count Lymph % (Auto) [place] % (Auto) Lymph # (Auto) [place] # (Auto) Seg Neutrophils % Seg Neuts % (Manual) Lymphocytes % (Manual) Monocytes % (Manual) Basophils % (Manual) Seg Neutrophils # Seg Neutrophils # Man Lymphocytes # (Manual) Monocytes # (Manual) Eosinophils # (Manual) Basophils # (Manual) PT INR D-Dimer ABG pH POC ABG pCO2 POC ABG pO2 ABG pO2 ABG HCO3 ABG O2 Saturation ABG Base Excess ABG Hemoglobin ABG Oxyhemoglobin ABG Potassium ABG Glucose Oxyhemoglobin Carboxyhemoglobin Sodium Potassium Chloride Carbon Dioxide BUN Creatinine Glucose POC Glucose 111 H 142 H 108 H Calcium Ferritin Total Bilirubin Alkaline Phosphatase Lactate Dehydrogenase Total Creatine Kinase CK-MB (CK-2) Rel Index Troponin T C-Reactive Protein Total Protein Albumin Prealbumin LDL Cholesterol Direct HDL Cholesterol Arterial Blood Glucose Arterial Blood Ionized Calcium Urine WBC (Auto) 04/17/20 04/17/20 04/17/20 05:09 06:53 06:53 WBC 14.2 H RBC Hgb 10.1 L Hct 31.5 L MCV MCH 27 L RDW 17.2 H Plt Count 643 H Lymph % (Auto) [place] % (Auto) Lymph # (Auto) [place] # (Auto) Seg Neutrophils % Seg Neuts % (Manual) Lymphocytes % (Manual) Monocytes % (Manual) Basophils % (Manual) Seg Neutrophils # Seg Neutrophils # Man Lymphocytes # (Manual) Monocytes # (Manual) Eosinophils # (Manual) Basophils # (Manual) PT INR D-Dimer ABG pH POC ABG pCO2 POC ABG pO2 ABG pO2 ABG HCO3 ABG O2 Saturation ABG Base Excess ABG Hemoglobin ABG Oxyhemoglobin ABG Potassium ABG Glucose Oxyhemoglobin Carboxyhemoglobin Sodium Potassium Chloride 97.7 L Carbon Dioxide 38 H BUN Creatinine < 0.2 L Glucose 126 H POC Glucose 131 H Calcium Ferritin Total Bilirubin Alkaline Phosphatase Lactate Dehydrogenase Total Creatine Kinase CK-MB (CK-2) Rel Index Troponin T C-Reactive Protein Total Protein Albumin Prealbumin LDL Cholesterol Direct HDL Cholesterol Arterial Blood Glucose Arterial Blood Ionized Calcium Urine WBC (Auto) 04/17/20 04/18/20 04/18/20 11:21 00:23 04:01 WBC 15.3 H RBC Hgb 10.1 L Hct 31.9 L MCV 82 L MCH 26 L RDW 17.2 H Plt Count 665 H Lymph % (Auto) 12.9 L [place] % (Auto) Lymph # (Auto) [place] # (Auto) 1.1 H Seg Neutrophils % 78.0 H Seg Neuts % (Manual) Lymphocytes % (Manual) Monocytes % (Manual) Basophils % (Manual) Seg Neutrophils # 11.9 H Seg Neutrophils # Man Lymphocytes # (Manual) Monocytes # (Manual) Eosinophils # (Manual) Basophils # (Manual) PT INR D-Dimer ABG pH POC ABG pCO2 POC ABG pO2 ABG pO2 ABG HCO3 ABG O2 Saturation ABG Base Excess ABG Hemoglobin ABG Oxyhemoglobin ABG Potassium ABG Glucose Oxyhemoglobin Carboxyhemoglobin Sodium Potassium Chloride Carbon Dioxide BUN Creatinine Glucose POC Glucose 140 H 125 H Calcium Ferritin Total Bilirubin Alkaline Phosphatase Lactate Dehydrogenase Total Creatine Kinase CK-MB (CK-2) Rel Index Troponin T C-Reactive Protein Total Protein Albumin Prealbumin LDL Cholesterol Direct HDL Cholesterol Arterial Blood Glucose Arterial Blood Ionized Calcium Urine WBC (Auto) 04/18/20 04/18/20 04/18/20 04:01 11:29 17:30 WBC RBC Hgb Hct MCV MCH RDW Plt Count Lymph % (Auto) [place] % (Auto) Lymph # (Auto) [place] # (Auto) Seg Neutrophils % Seg Neuts % (Manual) Lymphocytes % (Manual) Monocytes % (Manual) Basophils % (Manual) Seg Neutrophils # Seg Neutrophils # Man Lymphocytes # (Manual) Monocytes # (Manual) Eosinophils # (Manual) Basophils # (Manual) PT INR D-Dimer ABG pH POC ABG pCO2 POC ABG pO2 ABG pO2 ABG HCO3 ABG O2 Saturation ABG Base Excess ABG Hemoglobin ABG Oxyhemoglobin ABG Potassium ABG Glucose Oxyhemoglobin Carboxyhemoglobin Sodium Potassium Chloride 97.0 L Carbon Dioxide 38 H BUN Creatinine < 0.2 L Glucose 117 H POC Glucose 136 H 107 H Calcium Ferritin Total Bilirubin Alkaline Phosphatase Lactate Dehydrogenase Total Creatine Kinase CK-MB (CK-2) Rel Index Troponin T C-Reactive Protein Total Protein Albumin Prealbumin LDL Cholesterol Direct HDL Cholesterol Arterial Blood Glucose Arterial Blood Ionized Calcium Urine WBC (Auto) 04/18/20 04/19/20 04/19/20 23:19 06:51 06:51 WBC 12.2 H RBC Hgb 9.8 L Hct 31.1 L MCV 82 L MCH 26 L RDW 17.2 H Plt Count 549 H Lymph % (Auto) 6.5 L [place] % (Auto) Lymph # (Auto) 0.8 L [place] # (Auto) Seg Neutrophils % 86.7 H Seg Neuts % (Manual) Lymphocytes % (Manual) Monocytes % (Manual) Basophils % (Manual) Seg Neutrophils # 10.6 H Seg Neutrophils # Man Lymphocytes # (Manual) Monocytes # (Manual) Eosinophils # (Manual) Basophils # (Manual) PT INR D-Dimer ABG pH POC ABG pCO2 POC ABG pO2 ABG pO2 ABG HCO3 ABG O2 Saturation ABG Base Excess ABG Hemoglobin ABG Oxyhemoglobin ABG Potassium ABG Glucose Oxyhemoglobin Carboxyhemoglobin Sodium Potassium Chloride 97.8 L Carbon Dioxide 38 H BUN Creatinine < 0.2 L Glucose 123 H POC Glucose 127 H Calcium Ferritin Total Bilirubin Alkaline Phosphatase Lactate Dehydrogenase Total Creatine Kinase CK-MB (CK-2) Rel Index Troponin T C-Reactive Protein Total Protein Albumin Prealbumin LDL Cholesterol Direct HDL Cholesterol Arterial Blood Glucose Arterial Blood Ionized Calcium Urine WBC (Auto) 04/19/20 04/19/20 04/20/20 13:41 18:33 05:56 WBC RBC Hgb Hct MCV MCH RDW Plt Count Lymph % (Auto) [place] % (Auto) Lymph # (Auto) [place] # (Auto) Seg Neutrophils % Seg Neuts % (Manual) Lymphocytes % (Manual) Monocytes % (Manual) Basophils % (Manual) Seg Neutrophils # Seg Neutrophils # Man Lymphocytes # (Manual) Monocytes # (Manual) Eosinophils # (Manual) Basophils # (Manual) PT INR D-Dimer ABG pH POC ABG pCO2 POC ABG pO2 ABG pO2 ABG HCO3 ABG O2 Saturation ABG Base Excess ABG Hemoglobin ABG Oxyhemoglobin ABG Potassium ABG Glucose Oxyhemoglobin Carboxyhemoglobin Sodium Potassium Chloride Carbon Dioxide BUN Creatinine Glucose POC Glucose 116 H 124 H 130 H Calcium Ferritin Total Bilirubin Alkaline Phosphatase Lactate Dehydrogenase Total Creatine Kinase CK-MB (CK-2) Rel Index Troponin T C-Reactive Protein Total Protein Albumin Prealbumin LDL Cholesterol Direct HDL Cholesterol Arterial Blood Glucose Arterial Blood Ionized Calcium Urine WBC (Auto) 04/20/20 04/20/20 04/20/20 06:28 06:28 11:46 WBC RBC Hgb 10.2 L Hct 31.5 L MCV 82 L MCH 27 L RDW 17.1 H Plt Count 546 H Lymph % (Auto) 10.0 L [place] % (Auto) 9.8 H Lymph # (Auto) 1.1 L [place] # (Auto) 1.1 H Seg Neutrophils % 78.4 H Seg Neuts % (Manual) Lymphocytes % (Manual) Monocytes % (Manual) Basophils % (Manual) Seg Neutrophils # 8.5 H Seg Neutrophils # Man Lymphocytes # (Manual) Monocytes # (Manual) Eosinophils # (Manual) Basophils # (Manual) PT INR D-Dimer ABG pH POC ABG pCO2 POC ABG pO2 ABG pO2 ABG HCO3 ABG O2 Saturation ABG Base Excess ABG Hemoglobin ABG Oxyhemoglobin ABG Potassium ABG Glucose Oxyhemoglobin Carboxyhemoglobin Sodium Potassium Chloride 97.0 L Carbon Dioxide 38 H BUN Creatinine < 0.2 L Glucose 138 H POC Glucose 130 H Calcium Ferritin Total Bilirubin Alkaline Phosphatase Lactate Dehydrogenase Total Creatine Kinase CK-MB (CK-2) Rel Index Troponin T C-Reactive Protein Total Protein Albumin Prealbumin LDL Cholesterol Direct HDL Cholesterol Arterial Blood Glucose Arterial Blood Ionized Calcium Urine WBC (Auto) 04/20/20 04/21/20 04/21/20 23:31 05:55 05:55 WBC RBC Hgb 10.0 L Hct 31.1 L MCV 82 L MCH 26 L RDW 17.0 H Plt Count 535 H Lymph % (Auto) [place] % (Auto) 9.2 H Lymph # (Auto) 1.1 L [place] # (Auto) Seg Neutrophils % 75.4 H Seg Neuts % (Manual) Lymphocytes % (Manual) Monocytes % (Manual) Basophils % (Manual) Seg Neutrophils # Seg Neutrophils # Man Lymphocytes # (Manual) Monocytes # (Manual) Eosinophils # (Manual) Basophils # (Manual) PT INR D-Dimer ABG pH POC ABG pCO2 POC ABG pO2 ABG pO2 ABG HCO3 ABG O2 Saturation ABG Base Excess ABG Hemoglobin ABG Oxyhemoglobin ABG Potassium ABG Glucose Oxyhemoglobin Carboxyhemoglobin Sodium Potassium Chloride 95.0 L Carbon Dioxide 34 H BUN Creatinine < 0.2 L Glucose 125 H POC Glucose 116 H Calcium Ferritin Total Bilirubin Alkaline Phosphatase Lactate Dehydrogenase Total Creatine Kinase CK-MB (CK-2) Rel Index Troponin T C-Reactive Protein Total Protein Albumin Prealbumin LDL Cholesterol Direct HDL Cholesterol Arterial Blood Glucose Arterial Blood Ionized Calcium Urine WBC (Auto) 04/22/20 04/22/20 04/22/20 00:01 07:45 07:45 WBC RBC Hgb 10.0 L Hct 30.7 L MCV 81 L MCH 27 L RDW 17.1 H Plt Count 490 H Lymph % (Auto) [place] % (Auto) Lymph # (Auto) [place] # (Auto) Seg Neutrophils % Seg Neuts % (Manual) 75.0 H Lymphocytes % (Manual) 11.0 L Monocytes % (Manual) 9.0 H Basophils % (Manual) Seg Neutrophils # Seg Neutrophils # Man Lymphocytes # (Manual) 0.8 L Monocytes # (Manual) Eosinophils # (Manual) Basophils # (Manual) PT INR D-Dimer ABG pH POC ABG pCO2 POC ABG pO2 ABG pO2 ABG HCO3 ABG O2 Saturation ABG Base Excess ABG Hemoglobin ABG Oxyhemoglobin ABG Potassium ABG Glucose Oxyhemoglobin Carboxyhemoglobin Sodium Potassium Chloride 96.3 L Carbon Dioxide 40 H BUN Creatinine < 0.2 L Glucose 109 H POC Glucose 110 H Calcium Ferritin Total Bilirubin Alkaline Phosphatase Lactate Dehydrogenase Total Creatine Kinase CK-MB (CK-2) Rel Index Troponin T C-Reactive Protein Total Protein Albumin Prealbumin LDL Cholesterol Direct HDL Cholesterol Arterial Blood Glucose Arterial Blood Ionized Calcium Urine WBC (Auto) 04/23/20 04/23/20 04/23/20 04:28 04:28 04:28 WBC RBC 3.64 L Hgb 9.7 L Hct 29.4 L MCV 81 L MCH 27 L RDW 17.2 H Plt Count 527 H Lymph % (Auto) [place] % (Auto) 8.9 H Lymph # (Auto) [place] # (Auto) Seg Neutrophils % Seg Neuts % (Manual) Lymphocytes % (Manual) Monocytes % (Manual) Basophils % (Manual) Seg Neutrophils # Seg Neutrophils # Man Lymphocytes # (Manual) Monocytes # (Manual) Eosinophils # (Manual) Basophils # (Manual) PT INR D-Dimer ABG pH POC ABG pCO2 POC ABG pO2 ABG pO2 ABG HCO3 ABG O2 Saturation ABG Base Excess ABG Hemoglobin ABG Oxyhemoglobin ABG Potassium ABG Glucose Oxyhemoglobin Carboxyhemoglobin Sodium Potassium Chloride 96.4 L Carbon Dioxide 32 H D BUN Creatinine < 0.2 L Glucose 134 H POC Glucose Calcium Ferritin Total Bilirubin Alkaline Phosphatase Lactate Dehydrogenase Total Creatine Kinase CK-MB (CK-2) Rel Index Troponin T 0.151 H* C-Reactive Protein Total Protein Albumin Prealbumin LDL Cholesterol Direct HDL Cholesterol 29 L Arterial Blood Glucose Arterial Blood Ionized Calcium Urine WBC (Auto) 04/23/20 04/23/20 04/24/20 06:03 23:41 05:28 WBC RBC 3.56 L Hgb 9.5 L Hct 28.9 L MCV 81 L MCH 27 L RDW 17.4 H Plt Count 462 H Lymph % (Auto) [place] % (Auto) Lymph # (Auto) [place] # (Auto) Seg Neutrophils % Seg Neuts % (Manual) 80.0 H Lymphocytes % (Manual) Monocytes % (Manual) Basophils % (Manual) Seg Neutrophils # Seg Neutrophils # Man Lymphocytes # (Manual) Monocytes # (Manual) Eosinophils # (Manual) Basophils # (Manual) PT INR D-Dimer ABG pH POC ABG pCO2 POC ABG pO2 ABG pO2 ABG HCO3 ABG O2 Saturation ABG Base Excess ABG Hemoglobin ABG Oxyhemoglobin ABG Potassium ABG Glucose Oxyhemoglobin Carboxyhemoglobin Sodium Potassium Chloride Carbon Dioxide BUN Creatinine Glucose POC Glucose 132 H 117 H Calcium Ferritin Total Bilirubin Alkaline Phosphatase Lactate Dehydrogenase Total Creatine Kinase CK-MB (CK-2) Rel Index Troponin T C-Reactive Protein Total Protein Albumin Prealbumin LDL Cholesterol Direct HDL Cholesterol Arterial Blood Glucose Arterial Blood Ionized Calcium Urine WBC (Auto) 04/24/20 04/24/20 04/24/20 05:28 05:28 05:33 WBC RBC Hgb Hct MCV MCH RDW Plt Count Lymph % (Auto) [place] % (Auto) Lymph # (Auto) [place] # (Auto) Seg Neutrophils % Seg Neuts % (Manual) Lymphocytes % (Manual) Monocytes % (Manual) Basophils % (Manual) Seg Neutrophils # Seg Neutrophils # Man Lymphocytes # (Manual) Monocytes # (Manual) Eosinophils # (Manual) Basophils # (Manual) PT INR D-Dimer ABG pH POC ABG pCO2 POC ABG pO2 ABG pO2 ABG HCO3 ABG O2 Saturation ABG Base Excess ABG Hemoglobin ABG Oxyhemoglobin ABG Potassium ABG Glucose Oxyhemoglobin Carboxyhemoglobin Sodium Potassium Chloride 96.1 L Carbon Dioxide 40 H D BUN Creatinine < 0.2 L Glucose 115 H POC Glucose 109 H Calcium Ferritin Total Bilirubin Alkaline Phosphatase Lactate Dehydrogenase Total Creatine Kinase CK-MB (CK-2) Rel Index Troponin T 0.181 H* C-Reactive Protein Total Protein Albumin Prealbumin LDL Cholesterol Direct HDL Cholesterol Arterial Blood Glucose Arterial Blood Ionized Calcium Urine WBC (Auto) 04/24/20 04/24/20 04/25/20 11:17 18:23 00:12 WBC RBC Hgb Hct MCV MCH RDW Plt Count Lymph % (Auto) [place] % (Auto) Lymph # (Auto) [place] # (Auto) Seg Neutrophils % Seg Neuts % (Manual) Lymphocytes % (Manual) Monocytes % (Manual) Basophils % (Manual) Seg Neutrophils # Seg Neutrophils # Man Lymphocytes # (Manual) Monocytes # (Manual) Eosinophils # (Manual) Basophils # (Manual) PT INR D-Dimer ABG pH POC ABG pCO2 POC ABG pO2 ABG pO2 ABG HCO3 ABG O2 Saturation ABG Base Excess ABG Hemoglobin ABG Oxyhemoglobin ABG Potassium ABG Glucose Oxyhemoglobin Carboxyhemoglobin Sodium Potassium Chloride Carbon Dioxide BUN Creatinine Glucose POC Glucose 117 H 109 H 113 H Calcium Ferritin Total Bilirubin Alkaline Phosphatase Lactate Dehydrogenase Total Creatine Kinase CK-MB (CK-2) Rel Index Troponin T C-Reactive Protein Total Protein Albumin Prealbumin LDL Cholesterol Direct HDL Cholesterol Arterial Blood Glucose Arterial Blood Ionized Calcium Urine WBC (Auto) 04/25/20 04/25/20 04/25/20 06:34 06:34 11:28 WBC 11.7 H RBC Hgb 10.0 L Hct 31.7 L MCV 82 L MCH 26 L RDW 17.5 H Plt Count 564 H Lymph % (Auto) [place] % (Auto) Lymph # (Auto) [place] # (Auto) Seg Neutrophils % Seg Neuts % (Manual) 78.0 H Lymphocytes % (Manual) 10.0 L Monocytes % (Manual) 9.0 H Basophils % (Manual) Seg Neutrophils # Seg Neutrophils # Man 9.1 H Lymphocytes # (Manual) Monocytes # (Manual) 1.1 H Eosinophils # (Manual) Basophils # (Manual) PT INR D-Dimer ABG pH POC ABG pCO2 POC ABG pO2 ABG pO2 ABG HCO3 ABG O2 Saturation ABG Base Excess ABG Hemoglobin ABG Oxyhemoglobin ABG Potassium ABG Glucose Oxyhemoglobin Carboxyhemoglobin Sodium Potassium Chloride Carbon Dioxide 39 H BUN Creatinine < 0.2 L Glucose 103 H POC Glucose 112 H Calcium Ferritin Total Bilirubin Alkaline Phosphatase Lactate Dehydrogenase Total Creatine Kinase CK-MB (CK-2) Rel Index Troponin T C-Reactive Protein Total Protein Albumin Prealbumin LDL Cholesterol Direct HDL Cholesterol Arterial Blood Glucose Arterial Blood Ionized Calcium Urine WBC (Auto) 04/27/20 04/27/20 04/27/20 11:48 17:08 23:31 WBC RBC Hgb Hct MCV MCH RDW Plt Count Lymph % (Auto) [place] % (Auto) Lymph # (Auto) [place] # (Auto) Seg Neutrophils % Seg Neuts % (Manual) Lymphocytes % (Manual) Monocytes % (Manual) Basophils % (Manual) Seg Neutrophils # Seg Neutrophils # Man Lymphocytes # (Manual) Monocytes # (Manual) Eosinophils # (Manual) Basophils # (Manual) PT INR D-Dimer ABG pH POC ABG pCO2 POC ABG pO2 ABG pO2 ABG HCO3 ABG O2 Saturation ABG Base Excess ABG Hemoglobin ABG Oxyhemoglobin ABG Potassium ABG Glucose Oxyhemoglobin Carboxyhemoglobin Sodium Potassium Chloride Carbon Dioxide BUN Creatinine Glucose POC Glucose 124 H 118 H 122 H Calcium Ferritin Total Bilirubin Alkaline Phosphatase Lactate Dehydrogenase Total Creatine Kinase CK-MB (CK-2) Rel Index Troponin T C-Reactive Protein Total Protein Albumin Prealbumin LDL Cholesterol Direct HDL Cholesterol Arterial Blood Glucose Arterial Blood Ionized Calcium Urine WBC (Auto) 04/28/20 04/29/20 04/29/20 05:42 00:14 05:30 WBC RBC Hgb Hct MCV MCH RDW Plt Count Lymph % (Auto) [place] % (Auto) Lymph # (Auto) [place] # (Auto) Seg Neutrophils % Seg Neuts % (Manual) Lymphocytes % (Manual) Monocytes % (Manual) Basophils % (Manual) Seg Neutrophils # Seg Neutrophils # Man Lymphocytes # (Manual) Monocytes # (Manual) Eosinophils # (Manual) Basophils # (Manual) PT INR D-Dimer ABG pH POC ABG pCO2 POC ABG pO2 ABG pO2 ABG HCO3 ABG O2 Saturation ABG Base Excess ABG Hemoglobin ABG Oxyhemoglobin ABG Potassium ABG Glucose Oxyhemoglobin Carboxyhemoglobin Sodium Potassium Chloride Carbon Dioxide BUN Creatinine Glucose POC Glucose 122 H 115 H 123 H Calcium Ferritin Total Bilirubin Alkaline Phosphatase Lactate Dehydrogenase Total Creatine Kinase CK-MB (CK-2) Rel Index Troponin T C-Reactive Protein Total Protein Albumin Prealbumin LDL Cholesterol Direct HDL Cholesterol Arterial Blood Glucose Arterial Blood Ionized Calcium Urine WBC (Auto) 04/30/20 05/01/20 05/01/20 00:29 05:39 12:30 WBC RBC Hgb Hct MCV MCH RDW Plt Count Lymph % (Auto) [place] % (Auto) Lymph # (Auto) [place] # (Auto) Seg Neutrophils % Seg Neuts % (Manual) Lymphocytes % (Manual) Monocytes % (Manual) Basophils % (Manual) Seg Neutrophils # Seg Neutrophils # Man Lymphocytes # (Manual) Monocytes # (Manual) Eosinophils # (Manual) Basophils # (Manual) PT INR D-Dimer ABG pH POC ABG pCO2 POC ABG pO2 ABG pO2 ABG HCO3 ABG O2 Saturation ABG Base Excess ABG Hemoglobin ABG Oxyhemoglobin ABG Potassium ABG Glucose Oxyhemoglobin Carboxyhemoglobin Sodium Potassium Chloride Carbon Dioxide BUN Creatinine Glucose POC Glucose 106 H 109 H 108 H Calcium Ferritin Total Bilirubin Alkaline Phosphatase Lactate Dehydrogenase Total Creatine Kinase CK-MB (CK-2) Rel Index Troponin T C-Reactive Protein Total Protein Albumin Prealbumin LDL Cholesterol Direct HDL Cholesterol Arterial Blood Glucose Arterial Blood Ionized Calcium Urine WBC (Auto) Allied health notes reviewed: nursing
--- NOTE | 2020-05-01 14:49 | Progress Note ---
Subjective Date of service: 05/01/20 Principal diagnosis: Ac on Ch Hypercapnic & hypoxemic Resp Failure; Severe Sepsis; Jamar PNA; ALS Interval history: Assessment and plan: --Acute hypoxic hypercapnic respiratory failure; S/p tracheostomy on ventilatory support etiology secondary to sepsis, ALS, multifocal pneumonia (Covid negative). Pulmonary following --Constipation; Patient already received Dulcolax suppository and Colace Received milk of magnesia, with relief --History of ALS - Stable --Elevated D-dimers; imaging studies negative for PE and DVT --Bilateral pneumonia; probably community-acquired Completed the treatment, continue supportive care --Sepsis secondary to pneumonia; completed the treatment resolved --Elevated troponin Cardiology to revaluate his chest pain and elevated troponin Started him on low dose aspirin for now --Febrile illness; resolved ,secondary to pneumonia Complete antibiotics , resolved --DVT prophylaxis; Lovenox. 02/25/2020. CTA of the chest reveals no PE but does illustrate the bilateral pneumonia. Doppler ultrasound also negative for DVT. Blood cultures are pending. Await COVID-19 testing. Patient currently requiring BiPAP IPAP 24/EPAP 6 with FiO2 of 25%. Continue O2 and BiPAP as clinically indicated. ID and pulmonary consulted. 02/26/2020. Blood cultures are negative x48 hours and Covid testing negative as well. Continue antibiotics per ID recommendations for community-acquired bilateral pneumonia. Cardiology consultation for elevated troponin. Check echocardiogram. 02/27/2020. Events of yesterday noted with asystole following V. fib arrest. Patient currently on AC mode rate 20, tidal volume 400, FiO2 50% and a PEEP of 6. Follow-up echocardiogram for elevated troponin. Cardiology suspects NSTEMI Type 2 in the setting of acute resp failure. Chest CTA and BLE Dopplers neg. we will discontinue Decadron given the Covid PCR is negative. 02/28/2020. I spoke with the sister Felisa Eli who is the power of defense attorney regarding advanced directives and she instructed me that she would like to continue with aggressive care at this time. I informed her of the guarded prognosis and high mortality/morbidity and she voiced understanding. Patient currently with AC mode ventilation rate 18, tidal volume 400, FiO2 40% and a PEEP of 6. Continue antibiotics for pneumonia. ID previously consulted. Also consult neurology with regards to ALS. 02/29/2020; patient is intubated and on CPAP patient is alert and oriented. Patient has ALS. Dr. Álvarez spoke with his sister and she wants aggressive care. Continue antibiotics for pneumonia. Neurology consulted for ALS. Prognosis poor 03/01/2020; patient is intubated and on CPAP, patient is alert and oriented. I spoke with his 2 sisters about the management plan. 03/02/2020; patient is intubated and on CPAP. Patient was alert and oriented. I spoke with Dr. mohr and he thinks patient may need mechanical ventilation, likely his disease progressed. Dr. Flowers did debridement this morning. 03/03/2020; patient is intubated and on CPAP, patient was on trilogy and BiPAP at home. Patient has ALS. on spontaneous breathing trial. Patient is alert and oriented but quadriplegic. Patient has severe bilateral pneumonia and is on cefepime and Vanco, ID is following. Patient has sacral decubitus ulcer and debridement was done by Dr. Flowers and there is no osteomyelitis. 03/05. Patient still on broad-spectrum antibiotics. Status post sacral decubitus ulcer debridements-no osteomyelitis. Patient is on AC 25/400/30% PEEP 5. No blood gas results today. 03/06. Plan for tracheostomy by surgery. Still remains intubated. Labs reviewed-sodium 150. Started on free water 200 every 8hr. trend sodium. 03/07: s/p trach placement today, patient placed back on mechanical ventilation with trach. Plan to resume tube feeding with NG tube. Continue to monitor vitals, monitor BMP. 03/08: Patient noted to have distended abdomen with low urinary output. Obtain bladder scan rule out urine retention, UA and urine culture, continue to follow clinically. 03/09: Patient noted to have low blood pressure with SBP as low as 70s. Ordered for 500 mils normal saline bolus. CT abdomen showed bladder outlet obstruction, urology consulted. 03/10: placed on drake by urology o/n, improved urine outpt. cont to monitor BM P. resuded TF - cont free water with TF. wean off from vent as tolerated. 03/11: Vitals stable. cont TF, wean off from vent as tolerated. start on 1/2 NS for hypernatremia - follow BMP 03/12: wean off vent as tolerated, plan for speech eval, cont Tf for now, cont iv fluid 03/13: unable to wean off from vent, unable to do speech therapy eval. will need PEG tube, cont supportive care for now, cont NG tube feeding 03/14: consulted GI for PEg placemnet, cont supportive care. remains on vent at night 03/15: Discussed with GI, plan for PEG tube placement possibly tomorrow. Continue supportive care and wean off from vent as tolerated. Hold Lovenox dose tonight. 03/16: family didnot consent for PEG placement yesterday. I spoke with the daughter today and she is now agreeable for PEG tube. I explained the necessity of the procedure with RN to the patient also and he nodded started on tube feeding, for the procedure. will cont supportive care. planned for PEG tube placement tomorrow. 03/17: s/p PEG placement today, patient tolerated well, cont supportive care 03/18: Started on tube feeding with new PEG tube, continue to wean off vent as tolerated 03/19: cont to monitor with supportive care, wean off vent as tolerated 03/20: Continue to wean off vent as tolerated -but failing weaning trial. Still requiring vent support at night. Currently on PEG tube for tube feed. 03/21. Pt with PSV trials with FiO@ 30%, PEEP 6, PS 10. Currently on PEG tube for tube feed. 03/22/2020. Continue PSV trials per pulmonary. Continue bronchodilators. Patient tolerating tube feedings. Continue Robinul for secretion control. 03/23/2020. Continue PSV trials per pulmonary. Continue bronchodilators. Continue Scopolamine and Robinul for secretion control. Trach care/airway man agement. Mobility protocols for pressure ulcer prophylaxis. LTAC evaluation per case management 03/24/2020. Continue PSV trials with current settings pressure support 10, PEEP 6 and FiO2 30%. Continue bronchodilators/nebulizer. Continue Scopolamine and Robinul for secretion control. Trach care/airway management. Mobility protocols for pressure ulcer prophylaxis. LTAC evaluation per case management 03/25/2020. Pulmonary to proceed with T-piece trials today. Continue bronchodilators/nebulizer. Continue Scopolamine and Robinul for secretion control. Trach care/airway management. Mobility protocols for pressure ulcer prophylaxis. 03/26/2020. Patient currently with PSV 10/6 at FiO2 of 30%. Continue weaning and T-piece trials per protocol. Continue bronchodilators/nebulizer. Continue Scopolamine and Robinul for secretion control. Trach care/airway management. Mobility protocols for pressure ulcer prophylaxis. Continue tube feeding with aspiration precautions. 03/27/2020. Patient currently with PSV / at FiO2 of 30%. Continue weaning and T-piece trials per protocol. Continue bronchodilators/nebulizer. Continue Scopolamine and Robinul for secretion control. Trach care/airway management. Mobility protocols for pressure ulcer prophylaxis. Continue tube feeding with aspiration precautions. 03/28. Had temp 100.7F. He has been off antibiotics. Will send blood culture, ua, urine culture and chest xray. Had chest pain overnight and trop was elevated as well. Cardiology to evaluate 03/29. Has back pain due to position. He mentions his chest pain is positional. Has no other complaints. Still on mechanical ventilation 03/30. No chest pain today. Labs reviewed. Discussed chest pain with cardiology and team advised no further work up at this time. Can follow up with cardiology in the office after hospitalization 03/31. Lidocaine patch for lower back pain. 04/01. Discharge planning underway. CM notes reviewed. Discussed with daughter 04/02 - . CM trying to arrange discharge. Continue PSV trials. Discussed with patients significant other 04/04/2020; CM is working for discharge arrangement. Continue PSV trials. 04/05/2020; patient was seen and evaluated this morning and no change from baseline. Continue with PSV trials. Follow with [facility] for discharge planning. 04/06/2020;patient was seen and evaluated this morning and no change from magdaleno herrera. Continue with PSV trials. Follow with [facility] for discharge planning. 04/07/2020; patient was seen and evaluated this morning and no change from baseline. Continue with PSV trials. Follow with [facility] for discharge planning. 04/08/2020; patient is vent dependent. Discharge is per [facility]. 04/09/2020 patient is vent dependent, possible LTAC placement 04/10/2020; tracheostomy on vent, vent dependent pending LTAC placement 04/11/2020; clinically no change, tracheostomy on ventilatory support, wean as tolerated, awaiting placement 04/12/2020; remains on ventilatory support, unable to wean, patient wants to see a speech therapist for sound box However we cannot try that as long as he is on ventilatory support, once he is weaned off vent We will consult speech therapist, plan of care reviewed with the patient and his nurse 04/14/2020; clinically no change, on ventilatory support, complains of constipation, milk of magnesia Closely monitor the patient and adjust the management as needed 04/15/2020; patient has some oral thrush on the tongue, will give Magic mouthwash/nystatin swish and spit Wean off vent as tolerated 04/16 patient is alert and oriented, unable to comprehend what he is trying to tell but appears to complain of some pain, no acute events overnight, all interdisciplinary notes reviewed. Waiting for LTAC versus [facility] facility placement 04/17/2020. Continue supportive care with mechanical ventilation. Patient currently on AC mode rate 10, tidal volume 400 FiO2 30% with a PEEP of 6. Discharge planning per case management. 04/18/2020. Patient remains on mechanical ventilation AC mode rate 10, tidal volume 400, FiO2 30% and PEEP of 6. Continue spontaneous breathing trials as tolerated. Previously, patient was considered for discharge home with skilled staff providing care for 12 hours 7 days/week. Continue discussed with case management discharge planning. 04/19/20. Patient remains on mechanical ventilation AC mode rate 10, tidal volume 400, FiO2 30% and PEEP of 6. Continue spontaneous breathing trials as tolerated. 04/20/2020. Patient remains on mechanical ventilation AC mode rate 10, tidal volume 400, FiO2 30% and PEEP of 6. Continue spontaneous breathing trials as tolerated. 04/21/2020. Patient remains on mechanical ventilation AC mode rate 10, tidal volume 400, FiO2 30% and PEEP of 6. Continue tracheostomy care, secretion control and airway management. Continue spontaneous breathing trials as tolerated. 04/22/2020. Patient remains on mechanical ventilation AC mode rate 10, tidal v olume 400, FiO2 30% and PEEP of 6. Continue tracheostomy care, secretion control and airway management. Continue spontaneous breathing trials as tolerated. 04/23/2020. Patient on mechanical ventilation AC mode rate 18, tidal volume 450, FiO2 30% and PEEP of 6. Continue tracheostomy care, secretion control and airway management. Continue spontaneous breathing trials as tolerated. Continue Robinul and scopolamine for secretions. Continue baclofen. 04/24/2020. Patient remains on AC mode ventilation rate 10, tidal volume 400, FiO2 30% and PEEP of 6. Continue tracheostomy care, secretion control and airway management. Continue spontaneous breathing trials as tolerated. Continue Robinul and scopolamine for secretions. Continue baclofen. Continue Xanax for anxiety and Ambien for sleep. Await case management follow-up with regards to discharge planning. 04/25/2020. Patient remains on AC mode ventilation rate 10, tidal volume 400, FiO2 30% and PEEP of 6. Continue tracheostomy care, secretion control and airway management. Continue spontaneous breathing trials as tolerated. Continue Robinul and scopolamine for secretions. Continue baclofen. Continue Xanax for anxiety and Ambien for sleep. Await case management follow-up with regards to discharge planning. 04/26. Patient remains on AC mode ventilation rate 10, tidal volume 400, FiO2 30% and PEEP of 6. Continue tracheostomy care, secretion control and airway management. Continue spontaneous breathing trials as tolerated. Continue Robinul and scopolamine for secretions. Continue baclofen. Continue Xanax for anxiety and Ambien for sleep. Await case management follow-up with regards to discharge planning. 04/27. Patient remains on AC mode ventilation rate 10, tidal volume 400, FiO2 30% and PEEP of 6. Continue tracheostomy care, secretion control and airway management. Continue spontaneous breathing trials as tolerated. Continue Robinul and scopolamine for secretions. Continue baclofen. Continue Xanax for anxiety and Ambien for sleep. Await case management follow-up with regards to discharge [place] [facility]. 04/28/20 no acute events overnight, remains vent dependent, cardiology and pulmonary notes reviewed 04/29 remains intubated via tracheostomy, no acute events 04/30 no acute events overnight, cardiology note reviewed, remains vent dependent, discharge planning per case management 05/01 stable. cardiology and pulmonary notes reviewed. D/C acu-checks Hospitalist Physical Narrative exam: VITAL SIGNS: Reviewed. GENERAL: Awake. Intubated via tracheostomy HEAD: No signs of head trauma. EYES: Pupils are equal. EOMI intact. EARS: Hearing grossly intact. NECK: No adenopathy, no JVD. Tracheostomy CHEST: Coarse breath sounds bilaterally CARDIAC: Regular rate and rhythm. VASCULAR: No Edema. ABDOMEN: Soft, non tender and non distended. Has a functioning PEG tube NEUROLOGIC EXAM: Awake SKIN: No obvious lesions Objective - Constitutional Vitals: Vital Signs - 12hr 05/01/20 05/01/20 05/01/20 03:00 03:07 03:24 Temperature 98.2 F Pulse Rate 99 H 102 H Pulse Rate [ From Monitor] Respiratory 10 L Rate Blood Pressure 105/75 O2 Sat by Pulse Oximetry O2 Sat by Pulse Oximetry [ Assessment] 05/01/20 05/01/20 05/01/20 04:00 04:50 05:00 Temperature Pulse Rate 105 H 110 H 105 H Pulse Rate [ From Monitor] Respiratory 13 11 L Rate Blood Pressure 109/69 114/73 118/72 O2 Sat by Pulse 96 99 96 Oximetry O2 Sat by Pulse 97 Oximetry [ Assessment] 05/01/20 05/01/20 05/01/20 06:00 06:55 07:00 Temperature Pulse Rate 110 H 109 H Pulse Rate [ From Monitor] Respiratory 14 12 17 Rate Blood Pressure 110/73 114/75 O2 Sat by Pulse 99 98 Oximetry O2 Sat by Pulse Oximetry [ Assessment] 05/01/20 05/01/20 05/01/20 08:00 09:00 09:33 Temperature 98.6 F Pulse Rate 99 H 104 H 110 H Pulse Rate [ 110 H From Monitor] Respiratory 10 L 12 18 Rate Blood Pressure 113/73 115/76 O2 Sat by Pulse 98 97 99 Oximetry O2 Sat by Pulse Oximetry [ Assessment] 05/01/20 05/01/20 05/01/20 10:24 12:24 14:33 Temperature Pulse Rate 108 H 101 H Pulse Rate [ From Monitor] Respiratory 20 Rate Blood Pressure 114/74 105/73 O2 Sat by Pulse 99 Oximetry O2 Sat by Pulse 100 Oximetry [ Assessment] - Labs CBC & Chem 7: 04/25/20 06:34 04/25/20 06:34 Labs: Abnormal lab results 05/01/20 05/01/20 Range/Units 05:39 12:30 POC Glucose 109 H 108 H (70-105) mg/dL HEART Score - HEART Score Troponin: Troponin T 0.181 ng/mL (0.00-0.029) H* 04/24/20 05:28
[2020-05-01] MEDS: ENOXAPARIN 40 MG/0.4 ML INJ SUB-Q SCH (22:31)
[2020-05-01] MEDS: SENNOSIDES 8.6 MG TAB PO SCH (22:33)
[2020-05-01] MEDS: ZOLPIDEM 5 MG TAB PO PRN (22:34)
[2020-05-02] MEDS: DOCUSATE SODIUM 100 MG/10 ML ORAL LIQD FEEDTUBE SCH ×2 (10:24→21:11)
[2020-05-02] MEDS: LIDOCAINE 5% 1 EACH PATCH TD SCH (10:24)
[2020-05-02] MEDS: SCOPOLAMINE TRANSDERMAL PATCH 72 HR TD SCH (10:24)
[2020-05-02] MEDS: MAGIC MOUTHWASH 30ML PO SCH ×3 (10:24→20:33)
[2020-05-02] MEDS: BACLOFEN 10 MG TAB PO SCH ×2 (10:25→21:17)
[2020-05-02] MEDS: PREGABALIN 75 MG CAP PO SCH ×2 (10:25→21:11)
[2020-05-02] MEDS: TAMSULOSIN 0.4 MG CAP PO SCH (10:25)
[2020-05-02] MEDS: ASPIRIN EC 81 MG TAB PO SCH (10:25)
[2020-05-02] MEDS: METOPROLOL TARTRATE 25 MG TAB PO SCH ×2 (10:25→21:12)
[2020-05-02] MEDS: GLYCOPYRROLATE 1 MG TAB PO SCH ×3 (10:25→20:33)
[2020-05-02] MEDS: LANSOPRAZOLE 30 MG SOLUTAB FEEDTUBE SCH (10:26)
[2020-05-02] MEDS: SODIUM HYPOCHLORITE, DAKIN'S 1/2 STRENGTH (0.25%) 473 ML TOPICAL SOLN TP SCH ×2 (10:26→21:13)
[2020-05-02] MEDS: MORPHINE 2 MG/1 ML INJ IV PRN ×3 (10:33→20:30)
[2020-05-02] MEDS: ALPRAZolam 0.5 MG TAB PO PRN ×2 (10:33→22:08)
--- NOTE | 2020-05-02 10:59 | Progress Note ---
Assessment and Plan Patient Awake. Patient undergoing spontaneous breathing trial, Pressure support 10, FIO2 30%, PEEP 6 and O2 saturation running 99%. Recommend Continue spontaneous breathing trials as tolerated.Respiratory therapy told me, Patient Not tolearing T tube trial ' Decreasing pressure support to 5.Patient afebrile and has leukocytosis. Chest xray done 05/02/20 reported Interval worsening of right lung base opacity now appears to be pleural parenchymal. This may be a worsened infectious process or development of right-sided pleural effusion and worsened right lung base atelectasis. Left lung base opacity is stable. Tracheostomy in stable position. Patient right lung base infiltrate reported intervel worsening, patient has leukocytosis, recommend to place him antibiotic like zosyn. - Patient Problems (1) Acute on chronic respiratory failure with hypoxia and hypercapnia Current Visit: Yes Status: Acute Plan to address problem: Patient is on Pressure support mechanical ventilation, Pressure support 10, FIO2 30%, PEEP 6. Albuterol inhaler 2 puffs po qid. Continue S/C Lovenox. Continue prevacid. Recommend T tube trials as tolerated. (2) Bleeding from wound Current Visit: Yes Status: Acute Plan to address problem: Management primary care , surgery and wound care. (3) Elevated d-dimer Current Visit: Yes Status: Acute Plan to address problem: Patients venous doppler studies of legs, CTA chest reported Negative for VTE. Patient is on S/C Lovenox 40 mg qd. (4) Elevated troponin Current Visit: Yes Status: Acute Plan to address problem: Management as per primary care and cardiology (5) NSTEMI (non-ST elevated myocardial infarction) Current Visit: Yes Status: Acute Plan to address problem: Management as per cardiology. (6) Pneumonia Current Visit: Yes Status: Acute Qualifiers: Laterality: bilateral Plan to address problem: Patient was treated with ceftriaxone, zosyn and zithromax. Patient afebrile . Has mild leukocytosis. Repeat Chest xray done 05/02/20 reported Interval worsening of right lung base opacity now appears to be pleural parenchymal. This may be a worsened infectious process or development of right-sided pleural effusion and worsened right lung base atelectasis. Left lung base opacity is stable. Tracheostomy in stable position. Patient right lung base infiltrate reported intervel worsening, patient has leukocytosis, recommend to place him antibiotic like zosyn. Subjective Date of service: 05/02/20 Principal diagnosis: Ac on Ch Hypercapnic & hypoxemic Resp Failure; Severe Sepsis; Jamar PNA; ALS Interval history: Patient Awake. Patient undergoing spontaneous breathing trial, Pressure support 10, FIO2 30%, PEEP 6 and O2 saturation running 99%. Recommend Continue spontaneous breathing trials as tolerated.Respiratory therapy told me, Patient Not tolearing T tube trial ' Decreasing pressure support to 5.Patient afebrile and has leukocytosis. Chest xray done 05/02/20 reported Interval worsening of right lung base opacity now appears to be pleural parenchymal. This may be a worsened infectious process or development of right-sided pleural effusion and worsened right lung base atelectasis. Left lung base opacity is stable. Tracheostomy in stable position. Patient right lung base infiltrate reported intervel worsening, patient has leukocytosis, recommend to place him antibiotic like zosyn. Objective Vital Signs - 12hr 05/01/20 05/02/20 05/02/20 23:00 00:00 00:40 Temperature 98.2 F Pulse Rate 117 H 108 H 118 H Pulse Rate [ 104 H From Monitor] Respiratory 17 15 2 L Rate Blood Pressure 107/62 122/77 107/63 O2 Sat by Pulse 96 99 99 Oximetry 05/02/20 05/02/20 05/02/20 01:00 02:00 03:00 Temperature Pulse Rate 101 H 100 H 103 H Pulse Rate [ From Monitor] Respiratory 11 L 12 13 Rate Blood Pressure 123/75 109/75 119/80 O2 Sat by Pulse 99 99 Oximetry 05/02/20 05/02/20 05/02/20 03:15 04:00 05:00 Temperature 97.7 F Pulse Rate 101 H 110 H 96 H Pulse Rate [ 105 H From Monitor] Respiratory 6 L 14 11 L Rate Blood Pressure 119/80 118/69 110/73 O2 Sat by Pulse 99 100 99 Oximetry 05/02/20 05/02/20 05/02/20 06:00 07:00 08:00 Temperature 98.1 F Pulse Rate 96 H 113 H Pulse Rate [ From Monitor] Respiratory 17 18 Rate Blood Pressure 110/80 108/78 O2 Sat by Pulse 98 97 Oximetry 05/02/20 05/02/20 08:56 10:25 Temperature Pulse Rate 113 H 113 H Pulse Rate [ From Monitor] Respiratory 18 Rate Blood Pressure 108/78 O2 Sat by Pulse 97 Oximetry Constitutional: no acute distress, alert, other (thin middle aged male with normal respiratory effort at rest on MVS) Eyes: non-icteric ENT: oropharynx moist, other (S/P Tracheostomy) Neck: supple, no lymphadenopathy, no JVD Effort: mildly labored Ascultation: Bilateral: diminished breath sounds, wheezes, rhonchi Percussion: Bilateral: not dull Cardiovascular: regular rate and rhythm, other (S1,S2, no murmurs) Gastrointestinal: normoactive bowel sounds, soft, non-tender, non-distended, other (+ distended but non tender suprapubis) Integumentary: normal, decubitus ulcer (sacral / gluteal) Extremities: no cyanosis, no edema, pulses normal, other (atrophic looking limbs) Neurologic: pupils equal and round, other (motor strength in extremities 1-2/5, awake, alert, mouths words to make needs known) Psychiatric: mood appropriate, affect normal CBC and BMP: 05/03/20 14:06 05/03/20 14:06 ABG, PT/INR, D-dimer: ABG ABG pH 7.371 (7.320-7.450) 03/08/20 12:34 POC ABG pCO2 63.1 mmHg (32.0-48.0) H 03/08/20 12:34 ABG pCO2 60.1 mm Hg 03/06/20 04:34 POC ABG pO2 90.5 mmHg (83-108) 03/08/20 12:34 ABG pO2 88.6 mm Hg (80.0-90.0) 03/06/20 04:34 POC ABG HCO3 35.7 03/08/20 12:34 ABG O2 Saturation 97.0 % (95.0-99.0) 03/06/20 04:34 PT/INR, D-dimer PT 15.6 Sec. (12.2-14.9) H 02/24/20 09:19 INR 1.21 (0.87-1.13) H 02/24/20 09:19 D-Dimer 1311.96 ng/mlDDU (0-234) H 02/24/20 09:19 Abnormal lab findings: Abnormal Labs 02/24/20 02/24/20 02/24/20 09:19 09:19 09:19 WBC 20.2 H RBC 5.05 H Hgb Hct MCV MCH RDW 15.3 H Plt Count Lymph % (Auto) [place] % (Auto) Lymph # (Auto) [place] # (Auto) Seg Neutrophils % Seg Neuts % (Manual) 86.0 H Lymphocytes % (Manual) 1.0 L Monocytes % (Manual) Basophils % (Manual) Seg Neutrophils # Seg Neutrophils # Man 17.4 H Lymphocytes # (Manual) 0.2 L Monocytes # (Manual) Eosinophils # (Manual) Basophils # (Manual) PT 15.6 H INR 1.21 H D-Dimer 1311.96 H ABG pH POC ABG pCO2 POC ABG pO2 ABG pO2 ABG HCO3 ABG O2 Saturation ABG Base Excess ABG Hemoglobin ABG Oxyhemoglobin ABG Potassium ABG Glucose Oxyhemoglobin Carboxyhemoglobin Sodium 135 L Potassium 3.2 L Chloride 92.2 L Carbon Dioxide BUN 6 L Creatinine < 0.2 L Glucose 124 H POC Glucose Calcium Ferritin Total Bilirubin 2.30 H Alkaline Phosphatase 132 H Lactate Dehydrogenase Total Creatine Kinase CK-MB (CK-2) Rel Index Troponin T 0.080 H C-Reactive Protein Total Protein Albumin 3.6 L Prealbumin LDL Cholesterol Direct 41 L HDL Cholesterol Arterial Blood Glucose Arterial Blood Ionized Calcium Urine WBC (Auto) 02/24/20 02/24/20 02/24/20 09:19 09:58 10:01 WBC RBC Hgb Hct MCV MCH RDW Plt Count Lymph % (Auto) [place] % (Auto) Lymph # (Auto) [place] # (Auto) Seg Neutrophils % Seg Neuts % (Manual) Lymphocytes % (Manual) Monocytes % (Manual) Basophils % (Manual) Seg Neutrophils # Seg Neutrophils # Man Lymphocytes # (Manual) Monocytes # (Manual) Eosinophils # (Manual) Basophils # (Manual) PT INR D-Dimer ABG pH 7.176 L* POC ABG pCO2 POC ABG pO2 ABG pO2 91.2 H ABG HCO3 ABG O2 Saturation ABG Base Excess -4.6 L ABG Hemoglobin ABG Oxyhemoglobin ABG Potassium ABG Glucose Oxyhemoglobin 92.6 L Carboxyhemoglobin Sodium Potassium Chloride Carbon Dioxide BUN Creatinine Glucose POC Glucose Calcium Ferritin 1715.0 H Total Bilirubin Alkaline Phosphatase Lactate Dehydrogenase 303 H Total Creatine Kinase CK-MB (CK-2) Rel Index Troponin T C-Reactive Protein 26.10 H Total Protein Albumin Prealbumin LDL Cholesterol Direct HDL Cholesterol Arterial Blood Glucose Arterial Blood Ionized Calcium Urine WBC (Auto) 02/24/20 02/24/20 02/24/20 11:52 13:45 19:35 WBC RBC Hgb Hct MCV MCH RDW Plt Count Lymph % (Auto) [place] % (Auto) Lymph # (Auto) [place] # (Auto) Seg Neutrophils % Seg Neuts % (Manual) Lymphocytes % (Manual) Monocytes % (Manual) Basophils % (Manual) Seg Neutrophils # Seg Neutrophils # Man Lymphocytes # (Manual) Monocytes # (Manual) Eosinophils # (Manual) Basophils # (Manual) PT INR D-Dimer ABG pH 7.051 L* 7.300 L POC ABG pCO2 POC ABG pO2 ABG pO2 94.7 H 75.1 L ABG HCO3 18.0 L ABG O2 Saturation 93.5 L ABG Base Excess -6.8 L -7.8 L ABG Hemoglobin 13.2 L 11.9 L ABG Oxyhemoglobin ABG Potassium ABG Glucose Oxyhemoglobin 91.0 L 92.7 L Carboxyhemoglobin Sodium Potassium Chloride Carbon Dioxide BUN Creatinine Glucose POC Glucose Calcium Ferritin Total Bilirubin Alkaline Phosphatase Lactate Dehydrogenase Total Creatine Kinase CK-MB (CK-2) Rel Index Troponin T 0.034 H D C-Reactive Protein Total Protein Albumin Prealbumin LDL Cholesterol Direct HDL Cholesterol Arterial Blood Glucose Arterial Blood Ionized Calcium Urine WBC (Auto) 02/25/20 02/25/20 02/25/20 04:00 04:00 12:26 WBC 22.9 H RBC Hgb Hct MCV 83 L MCH 27 L RDW Plt Count 468 H Lymph % (Auto) [place] % (Auto) Lymph # (Auto) [place] # (Auto) Seg Neutrophils % Seg Neuts % (Manual) 89.0 H Lymphocytes % (Manual) 7.0 L Monocytes % (Manual) Basophils % (Manual) Seg Neutrophils # Seg Neutrophils # Man 20.4 H Lymphocytes # (Manual) Monocytes # (Manual) Eosinophils # (Manual) Basophils # (Manual) PT INR D-Dimer ABG pH POC ABG pCO2 POC ABG pO2 ABG pO2 ABG HCO3 ABG O2 Saturation ABG Base Excess ABG Hemoglobin ABG Oxyhemoglobin ABG Potassium 2.6 L ABG Glucose 142 H Oxyhemoglobin Carboxyhemoglobin Sodium Potassium 3.2 L Chloride Carbon Dioxide 18 L BUN Creatinine 0.2 L Glucose 114 H POC Glucose Calcium Ferritin Total Bilirubin Alkaline Phosphatase Lactate Dehydrogenase Total Creatine Kinase CK-MB (CK-2) Rel Index Troponin T C-Reactive Protein Total Protein Albumin 3.5 L Prealbumin LDL Cholesterol Direct HDL Cholesterol Arterial Blood Glucose 142 H Arterial Blood Ionized Calcium Urine WBC (Auto) 02/26/20 02/26/20 02/26/20 15:58 17:00 23:43 WBC RBC Hgb Hct MCV MCH RDW Plt Count Lymph % (Auto) [place] % (Auto) Lymph # (Auto) [place] # (Auto) Seg Neutrophils % Seg Neuts % (Manual) Lymphocytes % (Manual) Monocytes % (Manual) Basophils % (Manual) Seg Neutrophils # Seg Neutrophils # Man Lymphocytes # (Manual) Monocytes # (Manual) Eosinophils # (Manual) Basophils # (Manual) PT INR D-Dimer ABG pH 7.502 H POC ABG pCO2 POC ABG pO2 213.6 H ABG pO2 ABG HCO3 ABG O2 Saturation ABG Base Excess ABG Hemoglobin ABG Oxyhemoglobin 99.2 H ABG Potassium 2.9 L ABG Glucose 160 H Oxyhemoglobin Carboxyhemoglobin 0.4 L Sodium Potassium Chloride Carbon Dioxide BUN Creatinine Glucose POC Glucose 189 H 120 H Calcium Ferritin Total Bilirubin Alkaline Phosphatase Lactate Dehydrogenase Total Creatine Kinase CK-MB (CK-2) Rel Index Troponin T C-Reactive Protein Total Protein Albumin Prealbumin LDL Cholesterol Direct HDL Cholesterol Arterial Blood Glucose 160 H Arterial Blood Ionized Calcium 4.5 L Urine WBC (Auto) 02/27/20 02/27/20 02/27/20 05:00 07:04 17:45 WBC RBC Hgb Hct MCV MCH RDW Plt Count Lymph % (Auto) [place] % (Auto) Lymph # (Auto) [place] # (Auto) Seg Neutrophils % Seg Neuts % (Manual) Lymphocytes % (Manual) Monocytes % (Manual) Basophils % (Manual) Seg Neutrophils # Seg Neutrophils # Man Lymphocytes # (Manual) Monocytes # (Manual) Eosinophils # (Manual) Basophils # (Manual) PT INR D-Dimer ABG pH 7.524 H POC ABG pCO2 POC ABG pO2 ABG pO2 ABG HCO3 ABG O2 Saturation ABG Base Excess ABG Hemoglobin ABG Oxyhemoglobin ABG Potassium 3.0 L ABG Glucose 143 H Oxyhemoglobin Carboxyhemoglobin Sodium Potassium Chloride Carbon Dioxide BUN Creatinine Glucose POC Glucose 154 H 175 H Calcium Ferritin Total Bilirubin Alkaline Phosphatase Lactate Dehydrogenase Total Creatine Kinase CK-MB (CK-2) Rel Index Troponin T C-Reactive Protein Total Protein Albumin Prealbumin LDL Cholesterol Direct HDL Cholesterol Arterial Blood Glucose 143 H Arterial Blood Ionized Calcium Urine WBC (Auto) 02/27/20 02/28/20 02/28/20 Unknown 00:21 04:15 WBC 18.7 H RBC Hgb Hct MCV MCH RDW Plt Count Lymph % (Auto) 8.7 L [place] % (Auto) Lymph # (Auto) [place] # (Auto) 1.2 H Seg Neutrophils % 84.6 H Seg Neuts % (Manual) Lymphocytes % (Manual) Monocytes % (Manual) Basophils % (Manual) Seg Neutrophils # 15.9 H Seg Neutrophils # Man Lymphocytes # (Manual) Monocytes # (Manual) Eosinophils # (Manual) Basophils # (Manual) PT INR D-Dimer ABG pH POC ABG pCO2 POC ABG pO2 ABG pO2 ABG HCO3 ABG O2 Saturation ABG Base Excess ABG Hemoglobin ABG Oxyhemoglobin ABG Potassium ABG Glucose Oxyhemoglobin Carboxyhemoglobin Sodium Potassium 2.9 L* Chloride Carbon Dioxide 33 H D BUN Creatinine < 0.2 L Glucose 157 H POC Glucose 134 H Calcium Ferritin Total Bilirubin Alkaline Phosphatase Lactate Dehydrogenase Total Creatine Kinase CK-MB (CK-2) Rel Index Troponin T C-Reactive Protein Total Protein Albumin Prealbumin LDL Cholesterol Direct HDL Cholesterol Arterial Blood Glucose Arterial Blood Ionized Calcium Urine WBC (Auto) 02/28/20 02/28/20 02/28/20 04:15 05:16 05:39 WBC RBC Hgb Hct MCV MCH RDW Plt Count Lymph % (Auto) [place] % (Auto) Lymph # (Auto) [place] # (Auto) Seg Neutrophils % Seg Neuts % (Manual) Lymphocytes % (Manual) Monocytes % (Manual) Basophils % (Manual) Seg Neutrophils # Seg Neutrophils # Man Lymphocytes # (Manual) Monocytes # (Manual) Eosinophils # (Manual) Basophils # (Manual) PT INR D-Dimer ABG pH POC ABG pCO2 POC ABG pO2 ABG pO2 142.9 H ABG HCO3 34.1 H ABG O2 Saturation ABG Base Excess 8.3 H ABG Hemoglobin ABG Oxyhemoglobin ABG Potassium ABG Glucose Oxyhemoglobin Carboxyhemoglobin Sodium 151 H Potassium Chloride Carbon Dioxide 32 H BUN Creatinine 0.2 L Glucose 167 H POC Glucose 138 H Calcium Ferritin Total Bilirubin Alkaline Phosphatase Lactate Dehydrogenase Total Creatine Kinase CK-MB (CK-2) Rel Index Troponin T C-Reactive Protein Total Protein Albumin Prealbumin LDL Cholesterol Direct HDL Cholesterol Arterial Blood Glucose Arterial Blood Ionized Calcium Urine WBC (Auto) 02/28/20 02/28/20 02/28/20 11:05 11:33 12:54 WBC RBC Hgb Hct MCV MCH RDW Plt Count Lymph % (Auto) [place] % (Auto) Lymph # (Auto) [place] # (Auto) Seg Neutrophils % Seg Neuts % (Manual) Lymphocytes % (Manual) Monocytes % (Manual) Basophils % (Manual) Seg Neutrophils # Seg Neutrophils # Man Lymphocytes # (Manual) Monocytes # (Manual) Eosinophils # (Manual) Basophils # (Manual) PT INR D-Dimer ABG pH POC ABG pCO2 POC ABG pO2 ABG pO2 ABG HCO3 ABG O2 Saturation ABG Base Excess ABG Hemoglobin ABG Oxyhemoglobin ABG Potassium ABG Glucose Oxyhemoglobin Carboxyhemoglobin Sodium Potassium Chloride Carbon Dioxide BUN Creatinine Glucose POC Glucose 160 H Calcium Ferritin Total Bilirubin Alkaline Phosphatase Lactate Dehydrogenase Total Creatine Kinase CK-MB (CK-2) Rel Index Troponin T C-Reactive Protein 4.70 H Total Protein Albumin Prealbumin 0.090 L LDL Cholesterol Direct HDL Cholesterol Arterial Blood Glucose Arterial Blood Ionized Calcium Urine WBC (Auto) 02/28/20 02/29/20 02/29/20 17:34 00:44 04:05 WBC 19.6 H RBC Hgb Hct MCV MCH 27 L RDW 15.4 H Plt Count Lymph % (Auto) [place] % (Auto) Lymph # (Auto) [place] # (Auto) Seg Neutrophils % Seg Neuts % (Manual) 86.0 H Lymphocytes % (Manual) 7.0 L Monocytes % (Manual) Basophils % (Manual) Seg Neutrophils # Seg Neutrophils # Man 16.9 H Lymphocytes # (Manual) Monocytes # (Manual) 1.2 H Eosinophils # (Manual) Basophils # (Manual) PT INR D-Dimer ABG pH POC ABG pCO2 POC ABG pO2 ABG pO2 ABG HCO3 ABG O2 Saturation ABG Base Excess ABG Hemoglobin ABG Oxyhemoglobin ABG Potassium ABG Glucose Oxyhemoglobin Carboxyhemoglobin Sodium Potassium Chloride Carbon Dioxide BUN Creatinine Glucose POC Glucose 136 H 156 H Calcium Ferritin Total Bilirubin Alkaline Phosphatase Lactate Dehydrogenase Total Creatine Kinase CK-MB (CK-2) Rel Index Troponin T C-Reactive Protein Total Protein Albumin Prealbumin LDL Cholesterol Direct HDL Cholesterol Arterial Blood Glucose Arterial Blood Ionized Calcium Urine WBC (Auto) 1102/29/20 02/29/20 04:05 05:14 05:33 WBC RBC Hgb Hct MCV MCH RDW Plt Count Lymph % (Auto) [place] % (Auto) Lymph # (Auto) [place] # (Auto) Seg Neutrophils % Seg Neuts % (Manual) Lymphocytes % (Manual) Monocytes % (Manual) Basophils % (Manual) Seg Neutrophils # Seg Neutrophils # Man Lymphocytes # (Manual) Monocytes # (Manual) Eosinophils # (Manual) Basophils # (Manual) PT INR D-Dimer ABG pH POC ABG pCO2 54.3 H POC ABG pO2 124.8 H ABG pO2 ABG HCO3 ABG O2 Saturation ABG Base Excess ABG Hemoglobin ABG Oxyhemoglobin ABG Potassium ABG Glucose 185 H Oxyhemoglobin Carboxyhemoglobin Sodium 148 H Potassium Chloride Carbon Dioxide 33 H BUN Creatinine < 0.2 L Glucose 173 H POC Glucose 152 H Calcium Ferritin Total Bilirubin Alkaline Phosphatase Lactate Dehydrogenase Total Creatine Kinase CK-MB (CK-2) Rel Index Troponin T C-Reactive Protein Total Protein Albumin Prealbumin LDL Cholesterol Direct HDL Cholesterol Arterial Blood Glucose 185 H Arterial Blood Ionized Calcium Urine WBC (Auto) 03/01/20 03/01/20 03/01/20 00:00 03:45 04:33 WBC 23.1 H RBC Hgb Hct MCV MCH 27 L RDW 15.3 H Plt Count Lymph % (Auto) [place] % (Auto) Lymph # (Auto) [place] # (Auto) Seg Neutrophils % Seg Neuts % (Manual) 92.0 H Lymphocytes % (Manual) 6.0 L Monocytes % (Manual) Basophils % (Manual) Seg Neutrophils # Seg Neutrophils # Man 21.3 H Lymphocytes # (Manual) Monocytes # (Manual) Eosinophils # (Manual) 0.5 H Basophils # (Manual) PT INR D-Dimer ABG pH 7.492 H POC ABG pCO2 POC ABG pO2 ABG pO2 157.1 H ABG HCO3 32.3 H ABG O2 Saturation ABG Base Excess 8.1 H ABG Hemoglobin 13.2 L ABG Oxyhemoglobin ABG Potassium ABG Glucose Oxyhemoglobin Carboxyhemoglobin Sodium Potassium Chloride Carbon Dioxide BUN Creatinine Glucose POC Glucose 109 H Calcium Ferritin Total Bilirubin Alkaline Phosphatase Lactate Dehydrogenase Total Creatine Kinase CK-MB (CK-2) Rel Index Troponin T C-Reactive Protein Total Protein Albumin Prealbumin LDL Cholesterol Direct HDL Cholesterol Arterial Blood Glucose Arterial Blood Ionized Calcium Urine WBC (Auto) 03/01/20 03/01/20 03/01/20 04:33 05:29 12:32 WBC RBC Hgb Hct MCV MCH RDW Plt Count Lymph % (Auto) [place] % (Auto) Lymph # (Auto) [place] # (Auto) Seg Neutrophils % Seg Neuts % (Manual) Lymphocytes % (Manual) Monocytes % (Manual) Basophils % (Manual) Seg Neutrophils # Seg Neutrophils # Man Lymphocytes # (Manual) Monocytes # (Manual) Eosinophils # (Manual) Basophils # (Manual) PT INR D-Dimer ABG pH POC ABG pCO2 POC ABG pO2 ABG pO2 ABG HCO3 ABG O2 Saturation ABG Base Excess ABG Hemoglobin ABG Oxyhemoglobin ABG Potassium ABG Glucose Oxyhemoglobin Carboxyhemoglobin Sodium 146 H Potassium Chloride Carbon Dioxide 32 H BUN Creatinine < 0.2 L Glucose 120 H POC Glucose 120 H 128 H Calcium Ferritin Total Bilirubin Alkaline Phosphatase Lactate Dehydrogenase Total Creatine Kinase CK-MB (CK-2) Rel Index Troponin T C-Reactive Protein Total Protein Albumin Prealbumin LDL Cholesterol Direct HDL Cholesterol Arterial Blood Glucose Arterial Blood Ionized Calcium Urine WBC (Auto) 03/01/20 03/01/20 03/02/20 17:38 23:46 06:13 WBC RBC Hgb Hct MCV MCH RDW Plt Count Lymph % (Auto) [place] % (Auto) Lymph # (Auto) [place] # (Auto) Seg Neutrophils % Seg Neuts % (Manual) Lymphocytes % (Manual) Monocytes % (Manual) Basophils % (Manual) Seg Neutrophils # Seg Neutrophils # Man Lymphocytes # (Manual) Monocytes # (Manual) Eosinophils # (Manual) Basophils # (Manual) PT INR D-Dimer ABG pH POC ABG pCO2 POC ABG pO2 ABG pO2 ABG HCO3 ABG O2 Saturation ABG Base Excess ABG Hemoglobin ABG Oxyhemoglobin ABG Potassium ABG Glucose Oxyhemoglobin Carboxyhemoglobin Sodium Potassium Chloride Carbon Dioxide BUN Creatinine Glucose POC Glucose 114 H 121 H 120 H Calcium Ferritin Total Bilirubin Alkaline Phosphatase Lactate Dehydrogenase Total Creatine Kinase CK-MB (CK-2) Rel Index Troponin T C-Reactive Protein Total Protein Albumin Prealbumin LDL Cholesterol Direct HDL Cholesterol Arterial Blood Glucose Arterial Blood Ionized Calcium Urine WBC (Auto) 03/02/20 03/02/20 03/03/20 09:47 09:47 10:21 WBC 23.6 H RBC Hgb Hct MCV MCH RDW 15.3 H Plt Count 494 H Lymph % (Auto) [place] % (Auto) Lymph # (Auto) [place] # (Auto) Seg Neutrophils % Seg Neuts % (Manual) 85.0 H Lymphocytes % (Manual) 6.0 L Monocytes % (Manual) Basophils % (Manual) Seg Neutrophils # Seg Neutrophils # Man 20.1 H Lymphocytes # (Manual) Monocytes # (Manual) 1.7 H Eosinophils # (Manual) Basophils # (Manual) PT INR D-Dimer ABG pH POC ABG pCO2 POC ABG pO2 ABG pO2 ABG HCO3 ABG O2 Saturation ABG Base Excess ABG Hemoglobin ABG Oxyhemoglobin ABG Potassium 3.3 L ABG Glucose 158 H Oxyhemoglobin Carboxyhemoglobin Sodium Potassium Chloride Carbon Dioxide BUN Creatinine < 0.2 L Glucose 177 H POC Glucose Calcium Ferritin Total Bilirubin Alkaline Phosphatase Lactate Dehydrogenase Total Creatine Kinase CK-MB (CK-2) Rel Index Troponin T C-Reactive Protein Total Protein Albumin Prealbumin LDL Cholesterol Direct HDL Cholesterol Arterial Blood Glucose 158 H Arterial Blood Ionized Calcium Urine WBC (Auto) 03/03/20 03/04/20 03/04/20 21:30 00:00 12:23 WBC RBC Hgb Hct MCV MCH RDW Plt Count Lymph % (Auto) [place] % (Auto) Lymph # (Auto) [place] # (Auto) Seg Neutrophils % Seg Neuts % (Manual) Lymphocytes % (Manual) Monocytes % (Manual) Basophils % (Manual) Seg Neutrophils # Seg Neutrophils # Man Lymphocytes # (Manual) Monocytes # (Manual) Eosinophils # (Manual) Basophils # (Manual) PT INR D-Dimer ABG pH 7.328 L POC ABG pCO2 POC ABG pO2 ABG pO2 68.4 L ABG HCO3 35.0 H ABG O2 Saturation 93.9 L ABG Base Excess 6.8 H ABG Hemoglobin 12.7 L ABG Oxyhemoglobin ABG Potassium ABG Glucose Oxyhemoglobin 91.9 L Carboxyhemoglobin Sodium Potassium Chloride Carbon Dioxide BUN Creatinine Glucose POC Glucose 187 H 163 H Calcium Ferritin Total Bilirubin Alkaline Phosphatase Lactate Dehydrogenase Total Creatine Kinase CK-MB (CK-2) Rel Index Troponin T C-Reactive Protein Total Protein Albumin Prealbumin LDL Cholesterol Direct HDL Cholesterol Arterial Blood Glucose Arterial Blood Ionized Calcium Urine WBC (Auto) 03/04/20 03/04/20 03/05/20 18:15 21:30 06:02 WBC RBC Hgb Hct MCV MCH RDW Plt Count Lymph % (Auto) [place] % (Auto) Lymph # (Auto) [place] # (Auto) Seg Neutrophils % Seg Neuts % (Manual) Lymphocytes % (Manual) Monocytes % (Manual) Basophils % (Manual) Seg Neutrophils # Seg Neutrophils # Man Lymphocytes # (Manual) Monocytes # (Manual) Eosinophils # (Manual) Basophils # (Manual) PT INR D-Dimer ABG pH 7.297 L POC ABG pCO2 POC ABG pO2 ABG pO2 ABG HCO3 41.0 H ABG O2 Saturation ABG Base Excess 11.0 H ABG Hemoglobin 13.1 L ABG Oxyhemoglobin ABG Potassium ABG Glucose Oxyhemoglobin 94.5 L Carboxyhemoglobin Sodium Potassium Chloride Carbon Dioxide BUN Creatinine Glucose POC Glucose 192 H 127 H Calcium Ferritin Total Bilirubin Alkaline Phosphatase Lactate Dehydrogenase Total Creatine Kinase CK-MB (CK-2) Rel Index Troponin T C-Reactive Protein Total Protein Albumin Prealbumin LDL Cholesterol Direct HDL Cholesterol Arterial Blood Glucose Arterial Blood Ionized Calcium Urine WBC (Auto) 03/05/20 03/05/20 03/06/20 12:09 16:42 00:24 WBC RBC Hgb Hct MCV MCH RDW Plt Count Lymph % (Auto) [place] % (Auto) Lymph # (Auto) [place] # (Auto) Seg Neutrophils % Seg Neuts % (Manual) Lymphocytes % (Manual) Monocytes % (Manual) Basophils % (Manual) Seg Neutrophils # Seg Neutrophils # Man Lymphocytes # (Manual) Monocytes # (Manual) Eosinophils # (Manual) Basophils # (Manual) PT INR D-Dimer ABG pH POC ABG pCO2 POC ABG pO2 ABG pO2 ABG HCO3 ABG O2 Saturation ABG Base Excess ABG Hemoglobin ABG Oxyhemoglobin ABG Potassium ABG Glucose Oxyhemoglobin Carboxyhemoglobin Sodium Potassium Chloride Carbon Dioxide BUN Creatinine Glucose POC Glucose 147 H 114 H 134 H Calcium Ferritin Total Bilirubin Alkaline Phosphatase Lactate Dehydrogenase Total Creatine Kinase CK-MB (CK-2) Rel Index Troponin T C-Reactive Protein Total Protein Albumin Prealbumin LDL Cholesterol Direct HDL Cholesterol Arterial Blood Glucose Arterial Blood Ionized Calcium Urine WBC (Auto) 03/06/20 03/06/20 03/06/20 04:34 05:53 06:08 WBC 25.4 H RBC Hgb 10.5 L Hct 32.7 L MCV MCH 27 L RDW 15.3 H Plt Count 634 H Lymph % (Auto) [place] % (Auto) Lymph # (Auto) [place] # (Auto) Seg Neutrophils % Seg Neuts % (Manual) 88.0 H Lymphocytes % (Manual) 2.0 L Monocytes % (Manual) 8.0 H Basophils % (Manual) Seg Neutrophils # Seg Neutrophils # Man 22.4 H Lymphocytes # (Manual) 0.5 L Monocytes # (Manual) 2.0 H Eosinophils # (Manual) Basophils # (Manual) PT INR D-Dimer ABG pH POC ABG pCO2 POC ABG pO2 ABG pO2 ABG HCO3 37.9 H ABG O2 Saturation ABG Base Excess 11.4 H ABG Hemoglobin 10.6 L ABG Oxyhemoglobin ABG Potassium ABG Glucose Oxyhemoglobin 94.7 L Carboxyhemoglobin Sodium Potassium Chloride Carbon Dioxide BUN Creatinine Glucose POC Glucose 135 H Calcium Ferritin Total Bilirubin Alkaline Phosphatase Lactate Dehydrogenase Total Creatine Kinase CK-MB (CK-2) Rel Index Troponin T C-Reactive Protein Total Protein Albumin Prealbumin LDL Cholesterol Direct HDL Cholesterol Arterial Blood Glucose Arterial Blood Ionized Calcium Urine WBC (Auto) 03/06/20 03/06/20 03/06/20 06:08 12:19 19:10 WBC RBC Hgb Hct MCV MCH RDW Plt Count Lymph % (Auto) [place] % (Auto) Lymph # (Auto) [place] # (Auto) Seg Neutrophils % Seg Neuts % (Manual) Lymphocytes % (Manual) Monocytes % (Manual) Basophils % (Manual) Seg Neutrophils # Seg Neutrophils # Man Lymphocytes # (Manual) Monocytes # (Manual) Eosinophils # (Manual) Basophils # (Manual) PT INR D-Dimer ABG pH POC ABG pCO2 POC ABG pO2 ABG pO2 ABG HCO3 ABG O2 Saturation ABG Base Excess ABG Hemoglobin ABG Oxyhemoglobin ABG Potassium ABG Glucose Oxyhemoglobin Carboxyhemoglobin Sodium 150 H D Potassium Chloride Carbon Dioxide 39 H D BUN 23 H Creatinine < 0.2 L Glucose 144 H POC Glucose 169 H 152 H Calcium Ferritin Total Bilirubin Alkaline Phosphatase Lactate Dehydrogenase Total Creatine Kinase CK-MB (CK-2) Rel Index Troponin T C-Reactive Protein Total Protein Albumin 3.3 L Prealbumin LDL Cholesterol Direct HDL Cholesterol Arterial Blood Glucose Arterial Blood Ionized Calcium Urine WBC (Auto) 03/06/20 03/07/20 03/07/20 23:58 04:25 04:25 WBC 22.1 H RBC Hgb 10.9 L Hct 32.9 L MCV MCH RDW 15.5 H Plt Count 739 H Lymph % (Auto) 7.8 L [place] % (Auto) Lymph # (Auto) [place] # (Auto) 1.3 H Seg Neutrophils % 85.5 H Seg Neuts % (Manual) Lymphocytes % (Manual) Monocytes % (Manual) Basophils % (Manual) Seg Neutrophils # 18.9 H Seg Neutrophils # Man Lymphocytes # (Manual) Monocytes # (Manual) Eosinophils # (Manual) Basophils # (Manual) PT INR D-Dimer ABG pH POC ABG pCO2 POC ABG pO2 ABG pO2 ABG HCO3 ABG O2 Saturation ABG Base Excess ABG Hemoglobin ABG Oxyhemoglobin ABG Potassium ABG Glucose Oxyhemoglobin Carboxyhemoglobin Sodium 146 H Potassium Chloride Carbon Dioxide 37 H BUN Creatinine < 0.2 L Glucose 118 H POC Glucose 111 H Calcium Ferritin Total Bilirubin Alkaline Phosphatase Lactate Dehydrogenase Total Creatine Kinase CK-MB (CK-2) Rel Index Troponin T C-Reactive Protein Total Protein Albumin 3.7 L Prealbumin LDL Cholesterol Direct HDL Cholesterol Arterial Blood Glucose Arterial Blood Ionized Calcium Urine WBC (Auto) 03/07/20 03/07/20 03/07/20 05:20 17:45 23:32 WBC RBC Hgb Hct MCV MCH RDW Plt Count Lymph % (Auto) [place] % (Auto) Lymph # (Auto) [place] # (Auto) Seg Neutrophils % Seg Neuts % (Manual) Lymphocytes % (Manual) Monocytes % (Manual) Basophils % (Manual) Seg Neutrophils # Seg Neutrophils # Man Lymphocytes # (Manual) Monocytes # (Manual) Eosinophils # (Manual) Basophils # (Manual) PT INR D-Dimer ABG pH POC ABG pCO2 POC ABG pO2 ABG pO2 ABG HCO3 ABG O2 Saturation ABG Base Excess ABG Hemoglobin ABG Oxyhemoglobin ABG Potassium ABG Glucose Oxyhemoglobin Carboxyhemoglobin Sodium Potassium Chloride Carbon Dioxide BUN Creatinine Glucose POC Glucose 113 H 124 H 210 H Calcium Ferritin Total Bilirubin Alkaline Phosphatase Lactate Dehydrogenase Total Creatine Kinase CK-MB (CK-2) Rel Index Troponin T C-Reactive Protein Total Protein Albumin Prealbumin LDL Cholesterol Direct HDL Cholesterol Arterial Blood Glucose Arterial Blood Ionized Calcium Urine WBC (Auto) 03/08/20 03/08/20 03/08/20 05:35 06:43 06:43 WBC 28.9 H RBC 3.53 L Hgb 9.7 L Hct 30.3 L MCV MCH RDW 15.6 H Plt Count 578 H Lymph % (Auto) [place] % (Auto) Lymph # (Auto) [place] # (Auto) Seg Neutrophils % Seg Neuts % (Manual) 93.0 H Lymphocytes % (Manual) 4.0 L Monocytes % (Manual) Basophils % (Manual) Seg Neutrophils # Seg Neutrophils # Man 26.9 H Lymphocytes # (Manual) Monocytes # (Manual) Eosinophils # (Manual) Basophils # (Manual) PT INR D-Dimer ABG pH POC ABG pCO2 POC ABG pO2 ABG pO2 ABG HCO3 ABG O2 Saturation ABG Base Excess ABG Hemoglobin ABG Oxyhemoglobin ABG Potassium ABG Glucose Oxyhemoglobin Carboxyhemoglobin Sodium 146 H Potassium Chloride Carbon Dioxide 35 H BUN 34 H Creatinine 0.3 L D Glucose 125 H POC Glucose 147 H Calcium Ferritin Total Bilirubin Alkaline Phosphatase Lactate Dehydrogenase Total Creatine Kinase CK-MB (CK-2) Rel Index Troponin T C-Reactive Protein Total Protein 5.9 L Albumin 3.2 L Prealbumin LDL Cholesterol Direct HDL Cholesterol Arterial Blood Glucose Arterial Blood Ionized Calcium Urine WBC (Auto) 03/08/20 03/08/20 03/08/20 08:57 11:14 12:34 WBC RBC Hgb Hct MCV MCH RDW Plt Count Lymph % (Auto) [place] % (Auto) Lymph # (Auto) [place] # (Auto) Seg Neutrophils % Seg Neuts % (Manual) Lymphocytes % (Manual) Monocytes % (Manual) Basophils % (Manual) Seg Neutrophils # Seg Neutrophils # Man Lymphocytes # (Manual) Monocytes # (Manual) Eosinophils # (Manual) Basophils # (Manual) PT INR D-Dimer ABG pH POC ABG pCO2 63.1 H POC ABG pO2 ABG pO2 ABG HCO3 ABG O2 Saturation ABG Base Excess ABG Hemoglobin 10.9 L ABG Oxyhemoglobin ABG Potassium ABG Glucose 176 H Oxyhemoglobin Carboxyhemoglobin Sodium Potassium Chloride Carbon Dioxide BUN Creatinine Glucose POC Glucose 171 H Calcium Ferritin Total Bilirubin Alkaline Phosphatase Lactate Dehydrogenase Total Creatine Kinase CK-MB (CK-2) Rel Index Troponin T C-Reactive Protein Total Protein Albumin Prealbumin LDL Cholesterol Direct HDL Cholesterol Arterial Blood Glucose 176 H Arterial Blood Ionized Calcium 4.5 L Urine WBC (Auto) 10.0 H 03/08/20 03/08/20 03/09/20 18:02 23:43 05:49 WBC RBC Hgb Hct MCV MCH RDW Plt Count Lymph % (Auto) [place] % (Auto) Lymph # (Auto) [place] # (Auto) Seg Neutrophils % Seg Neuts % (Manual) Lymphocytes % (Manual) Monocytes % (Manual) Basophils % (Manual) Seg Neutrophils # Seg Neutrophils # Man Lymphocytes # (Manual) Monocytes # (Manual) Eosinophils # (Manual) Basophils # (Manual) PT INR D-Dimer ABG pH POC ABG pCO2 POC ABG pO2 ABG pO2 ABG HCO3 ABG O2 Saturation ABG Base Excess ABG Hemoglobin ABG Oxyhemoglobin ABG Potassium ABG Glucose Oxyhemoglobin Carboxyhemoglobin Sodium Potassium Chloride Carbon Dioxide BUN Creatinine Glucose POC Glucose 157 H 134 H 163 H Calcium Ferritin Total Bilirubin Alkaline Phosphatase Lactate Dehydrogenase Total Creatine Kinase CK-MB (CK-2) Rel Index Troponin T C-Reactive Protein Total Protein Albumin Prealbumin LDL Cholesterol Direct HDL Cholesterol Arterial Blood Glucose Arterial Blood Ionized Calcium Urine WBC (Auto) 03/09/20 03/09/20 03/09/20 08:35 08:35 12:11 WBC 23.4 H RBC 3.36 L Hgb 9.3 L Hct 28.8 L MCV MCH RDW 15.9 H Plt Count 521 H Lymph % (Auto) [place] % (Auto) Lymph # (Auto) [place] # (Auto) Seg Neutrophils % Seg Neuts % (Manual) 87.0 H Lymphocytes % (Manual) 4.0 L Monocytes % (Manual) 9.0 H Basophils % (Manual) Seg Neutrophils # Seg Neutrophils # Man 20.4 H Lymphocytes # (Manual) 0.9 L Monocytes # (Manual) 2.1 H Eosinophils # (Manual) Basophils # (Manual) PT INR D-Dimer ABG pH POC ABG pCO2 POC ABG pO2 ABG pO2 ABG HCO3 ABG O2 Saturation ABG Base Excess ABG Hemoglobin ABG Oxyhemoglobin ABG Potassium ABG Glucose Oxyhemoglobin Carboxyhemoglobin Sodium 147 H Potassium Chloride Carbon Dioxide 37 H BUN 63 H Creatinine Glucose 154 H POC Glucose 128 H Calcium Ferritin Total Bilirubin Alkaline Phosphatase Lactate Dehydrogenase Total Creatine Kinase CK-MB (CK-2) Rel Index Troponin T C-Reactive Protein Total Protein Albumin Prealbumin LDL Cholesterol Direct HDL Cholesterol Arterial Blood Glucose Arterial Blood Ionized Calcium Urine WBC (Auto) 03/09/20 03/10/20 03/10/20 17:51 00:25 05:41 WBC RBC Hgb Hct MCV MCH RDW Plt Count Lymph % (Auto) [place] % (Auto) Lymph # (Auto) [place] # (Auto) Seg Neutrophils % Seg Neuts % (Manual) Lymphocytes % (Manual) Monocytes % (Manual) Basophils % (Manual) Seg Neutrophils # Seg Neutrophils # Man Lymphocytes # (Manual) Monocytes # (Manual) Eosinophils # (Manual) Basophils # (Manual) PT INR D-Dimer ABG pH POC ABG pCO2 POC ABG pO2 ABG pO2 ABG HCO3 ABG O2 Saturation ABG Base Excess ABG Hemoglobin ABG Oxyhemoglobin ABG Potassium ABG Glucose Oxyhemoglobin Carboxyhemoglobin Sodium Potassium Chloride Carbon Dioxide BUN Creatinine Glucose POC Glucose 127 H 128 H 153 H Calcium Ferritin Total Bilirubin Alkaline Phosphatase Lactate Dehydrogenase Total Creatine Kinase CK-MB (CK-2) Rel Index Troponin T C-Reactive Protein Total Protein Albumin Prealbumin LDL Cholesterol Direct HDL Cholesterol Arterial Blood Glucose Arterial Blood Ionized Calcium Urine WBC (Auto) 03/10/20 03/10/20 03/10/20 06:14 06:14 12:02 WBC 18.3 H RBC 3.45 L Hgb 9.5 L Hct 29.5 L MCV MCH RDW 16.1 H Plt Count 494 H Lymph % (Auto) [place] % (Auto) Lymph # (Auto) [place] # (Auto) Seg Neutrophils % Seg Neuts % (Manual) 95.0 H Lymphocytes % (Manual) 1.0 L Monocytes % (Manual) Basophils % (Manual) Seg Neutrophils # Seg Neutrophils # Man 17.4 H Lymphocytes # (Manual) 0.2 L Monocytes # (Manual) Eosinophils # (Manual) Basophils # (Manual) PT INR D-Dimer ABG pH POC ABG pCO2 POC ABG pO2 ABG pO2 ABG HCO3 ABG O2 Saturation ABG Base Excess ABG Hemoglobin ABG Oxyhemoglobin ABG Potassium ABG Glucose Oxyhemoglobin Carboxyhemoglobin Sodium 149 H Potassium Chloride Carbon Dioxide 35 H BUN 34 H Creatinine 0.2 L D Glucose 177 H POC Glucose 151 H Calcium Ferritin Total Bilirubin Alkaline Phosphatase Lactate Dehydrogenase Total Creatine Kinase CK-MB (CK-2) Rel Index Troponin T C-Reactive Protein Total Protein Albumin Prealbumin LDL Cholesterol Direct HDL Cholesterol Arterial Blood Glucose Arterial Blood Ionized Calcium Urine WBC (Auto) 03/10/20 03/10/20 03/11/20 17:41 23:53 05:02 WBC RBC Hgb Hct MCV MCH RDW Plt Count Lymph % (Auto) [place] % (Auto) Lymph # (Auto) [place] # (Auto) Seg Neutrophils % Seg Neuts % (Manual) Lymphocytes % (Manual) Monocytes % (Manual) Basophils % (Manual) Seg Neutrophils # Seg Neutrophils # Man Lymphocytes # (Manual) Monocytes # (Manual) Eosinophils # (Manual) Basophils # (Manual) PT INR D-Dimer ABG pH POC ABG pCO2 POC ABG pO2 ABG pO2 ABG HCO3 ABG O2 Saturation ABG Base Excess ABG Hemoglobin ABG Oxyhemoglobin ABG Potassium ABG Glucose Oxyhemoglobin Carboxyhemoglobin Sodium Potassium Chloride Carbon Dioxide BUN Creatinine Glucose POC Glucose 168 H 142 H 146 H Calcium Ferritin Total Bilirubin Alkaline Phosphatase Lactate Dehydrogenase Total Creatine Kinase CK-MB (CK-2) Rel Index Troponin T C-Reactive Protein Total Protein Albumin Prealbumin LDL Cholesterol Direct HDL Cholesterol Arterial Blood Glucose Arterial Blood Ionized Calcium Urine WBC (Auto) 03/11/20 03/11/20 03/11/20 11:30 14:01 14:01 WBC 19.7 H RBC 3.04 L Hgb 8.7 L Hct 25.8 L MCV MCH RDW 15.6 H Plt Count Lymph % (Auto) [place] % (Auto) Lymph # (Auto) [place] # (Auto) Seg Neutrophils % Seg Neuts % (Manual) Lymphocytes % (Manual) Monocytes % (Manual) Basophils % (Manual) Seg Neutrophils # Seg Neutrophils # Man Lymphocytes # (Manual) Monocytes # (Manual) Eosinophils # (Manual) Basophils # (Manual) PT INR D-Dimer ABG pH POC ABG pCO2 POC ABG pO2 ABG pO2 ABG HCO3 ABG O2 Saturation ABG Base Excess ABG Hemoglobin ABG Oxyhemoglobin ABG Potassium ABG Glucose Oxyhemoglobin Carboxyhemoglobin Sodium 151 H Potassium Chloride Carbon Dioxide 37 H BUN Creatinine < 0.2 L Glucose 171 H POC Glucose 248 H Calcium Ferritin Total Bilirubin Alkaline Phosphatase Lactate Dehydrogenase Total Creatine Kinase CK-MB (CK-2) Rel Index Troponin T C-Reactive Protein Total Protein Albumin Prealbumin LDL Cholesterol Direct HDL Cholesterol Arterial Blood Glucose Arterial Blood Ionized Calcium Urine WBC (Auto) 03/11/20 03/11/20 03/12/20 17:09 23:52 04:39 WBC 19.9 H RBC 3.16 L Hgb 8.9 L Hct 27.5 L MCV MCH RDW 15.7 H Plt Count Lymph % (Auto) 6.8 L [place] % (Auto) Lymph # (Auto) [place] # (Auto) 1.2 H Seg Neutrophils % 86.0 H Seg Neuts % (Manual) Lymphocytes % (Manual) Monocytes % (Manual) Basophils % (Manual) Seg Neutrophils # 17.1 H Seg Neutrophils # Man Lymphocytes # (Manual) Monocytes # (Manual) Eosinophils # (Manual) Basophils # (Manual) PT INR D-Dimer ABG pH POC ABG pCO2 POC ABG pO2 ABG pO2 ABG HCO3 ABG O2 Saturation ABG Base Excess ABG Hemoglobin ABG Oxyhemoglobin ABG Potassium ABG Glucose Oxyhemoglobin Carboxyhemoglobin Sodium Potassium Chloride Carbon Dioxide BUN Creatinine Glucose POC Glucose 124 H 131 H Calcium Ferritin Total Bilirubin Alkaline Phosphatase Lactate Dehydrogenase Total Creatine Kinase CK-MB (CK-2) Rel Index Troponin T C-Reactive Protein Total Protein Albumin Prealbumin LDL Cholesterol Direct HDL Cholesterol Arterial Blood Glucose Arterial Blood Ionized Calcium Urine WBC (Auto) 03/12/20 03/12/20 03/12/20 04:39 05:28 11:34 WBC RBC Hgb Hct MCV MCH RDW Plt Count Lymph % (Auto) [place] % (Auto) Lymph # (Auto) [place] # (Auto) Seg Neutrophils % Seg Neuts % (Manual) Lymphocytes % (Manual) Monocytes % (Manual) Basophils % (Manual) Seg Neutrophils # Seg Neutrophils # Man Lymphocytes # (Manual) Monocytes # (Manual) Eosinophils # (Manual) Basophils # (Manual) PT INR D-Dimer ABG pH POC ABG pCO2 POC ABG pO2 ABG pO2 ABG HCO3 ABG O2 Saturation ABG Base Excess ABG Hemoglobin ABG Oxyhemoglobin ABG Potassium ABG Glucose Oxyhemoglobin Carboxyhemoglobin Sodium 147 H Potassium Chloride Carbon Dioxide 40 H BUN Creatinine < 0.2 L Glucose 175 H POC Glucose 167 H 144 H Calcium Ferritin Total Bilirubin Alkaline Phosphatase Lactate Dehydrogenase Total Creatine Kinase CK-MB (CK-2) Rel Index Troponin T C-Reactive Protein Total Protein Albumin Prealbumin LDL Cholesterol Direct HDL Cholesterol Arterial Blood Glucose Arterial Blood Ionized Calcium Urine WBC (Auto) 03/12/20 03/12/20 03/13/20 17:32 23:57 05:57 WBC RBC Hgb Hct MCV MCH RDW Plt Count Lymph % (Auto) [place] % (Auto) Lymph # (Auto) [place] # (Auto) Seg Neutrophils % Seg Neuts % (Manual) Lymphocytes % (Manual) Monocytes % (Manual) Basophils % (Manual) Seg Neutrophils # Seg Neutrophils # Man Lymphocytes # (Manual) Monocytes # (Manual) Eosinophils # (Manual) Basophils # (Manual) PT INR D-Dimer ABG pH POC ABG pCO2 POC ABG pO2 ABG pO2 ABG HCO3 ABG O2 Saturation ABG Base Excess ABG Hemoglobin ABG Oxyhemoglobin ABG Potassium ABG Glucose Oxyhemoglobin Carboxyhemoglobin Sodium Potassium Chloride Carbon Dioxide BUN Creatinine Glucose POC Glucose 141 H 137 H 161 H Calcium Ferritin Total Bilirubin Alkaline Phosphatase Lactate Dehydrogenase Total Creatine Kinase CK-MB (CK-2) Rel Index Troponin T C-Reactive Protein Total Protein Albumin Prealbumin LDL Cholesterol Direct HDL Cholesterol Arterial Blood Glucose Arterial Blood Ionized Calcium Urine WBC (Auto) 03/13/20 03/13/20 03/13/20 12:28 14:14 18:39 WBC RBC Hgb Hct MCV MCH RDW Plt Count Lymph % (Auto) [place] % (Auto) Lymph # (Auto) [place] # (Auto) Seg Neutrophils % Seg Neuts % (Manual) Lymphocytes % (Manual) Monocytes % (Manual) Basophils % (Manual) Seg Neutrophils # Seg Neutrophils # Man Lymphocytes # (Manual) Monocytes # (Manual) Eosinophils # (Manual) Basophils # (Manual) PT INR D-Dimer ABG pH POC ABG pCO2 POC ABG pO2 ABG pO2 ABG HCO3 ABG O2 Saturation ABG Base Excess ABG Hemoglobin ABG Oxyhemoglobin ABG Potassium ABG Glucose Oxyhemoglobin Carboxyhemoglobin Sodium Potassium Chloride Carbon Dioxide 39 H BUN Creatinine < 0.2 L Glucose 129 H POC Glucose 130 H 125 H Calcium Ferritin Total Bilirubin Alkaline Phosphatase Lactate Dehydrogenase Total Creatine Kinase CK-MB (CK-2) Rel Index Troponin T C-Reactive Protein Total Protein Albumin Prealbumin LDL Cholesterol Direct HDL Cholesterol Arterial Blood Glucose Arterial Blood Ionized Calcium Urine WBC (Auto) 03/13/20 03/14/20 03/14/20 23:33 05:24 08:07 WBC 16.8 H RBC 2.81 L Hgb 7.9 L Hct 23.9 L MCV MCH RDW 15.9 H Plt Count Lymph % (Auto) [place] % (Auto) Lymph # (Auto) [place] # (Auto) Seg Neutrophils % Seg Neuts % (Manual) 84.0 H Lymphocytes % (Manual) 10.0 L Monocytes % (Manual) Basophils % (Manual) Seg Neutrophils # Seg Neutrophils # Man 14.1 H Lymphocytes # (Manual) Monocytes # (Manual) Eosinophils # (Manual) Basophils # (Manual) PT INR D-Dimer ABG pH POC ABG pCO2 POC ABG pO2 ABG pO2 ABG HCO3 ABG O2 Saturation ABG Base Excess ABG Hemoglobin ABG Oxyhemoglobin ABG Potassium ABG Glucose Oxyhemoglobin Carboxyhemoglobin Sodium Potassium Chloride Carbon Dioxide BUN Creatinine Glucose POC Glucose 146 H 125 H Calcium Ferritin Total Bilirubin Alkaline Phosphatase Lactate Dehydrogenase Total Creatine Kinase CK-MB (CK-2) Rel Index Troponin T C-Reactive Protein Total Protein Albumin Prealbumin LDL Cholesterol Direct HDL Cholesterol Arterial Blood Glucose Arterial Blood Ionized Calcium Urine WBC (Auto) 03/14/20 03/14/20 03/14/20 08:07 12:21 18:26 WBC RBC Hgb Hct MCV MCH RDW Plt Count Lymph % (Auto) [place] % (Auto) Lymph # (Auto) [place] # (Auto) Seg Neutrophils % Seg Neuts % (Manual) Lymphocytes % (Manual) Monocytes % (Manual) Basophils % (Manual) Seg Neutrophils # Seg Neutrophils # Man Lymphocytes # (Manual) Monocytes # (Manual) Eosinophils # (Manual) Basophils # (Manual) PT INR D-Dimer ABG pH POC ABG pCO2 POC ABG pO2 ABG pO2 ABG HCO3 ABG O2 Saturation ABG Base Excess ABG Hemoglobin ABG Oxyhemoglobin ABG Potassium ABG Glucose Oxyhemoglobin Carboxyhemoglobin Sodium Potassium Chloride 97.0 L Carbon Dioxide 37 H BUN Creatinine < 0.2 L Glucose 129 H POC Glucose 109 H 142 H Calcium 8.3 L Ferritin Total Bilirubin Alkaline Phosphatase Lactate Dehydrogenase Total Creatine Kinase CK-MB (CK-2) Rel Index Troponin T C-Reactive Protein Total Protein Albumin Prealbumin LDL Cholesterol Direct HDL Cholesterol Arterial Blood Glucose Arterial Blood Ionized Calcium Urine WBC (Auto) 03/14/20 03/15/20 03/15/20 23:57 05:46 08:06 WBC 19.7 H RBC 3.29 L Hgb 9.1 L Hct 28.0 L MCV MCH RDW 15.9 H Plt Count Lymph % (Auto) [place] % (Auto) Lymph # (Auto) [place] # (Auto) Seg Neutrophils % Seg Neuts % (Manual) Lymphocytes % (Manual) Monocytes % (Manual) Basophils % (Manual) Seg Neutrophils # Seg Neutrophils # Man Lymphocytes # (Manual) Monocytes # (Manual) Eosinophils # (Manual) Basophils # (Manual) PT INR D-Dimer ABG pH POC ABG pCO2 POC ABG pO2 ABG pO2 ABG HCO3 ABG O2 Saturation ABG Base Excess ABG Hemoglobin ABG Oxyhemoglobin ABG Potassium ABG Glucose Oxyhemoglobin Carboxyhemoglobin Sodium Potassium Chloride Carbon Dioxide BUN Creatinine Glucose POC Glucose 157 H 118 H Calcium Ferritin Total Bilirubin Alkaline Phosphatase Lactate Dehydrogenase Total Creatine Kinase CK-MB (CK-2) Rel Index Troponin T C-Reactive Protein Total Protein Albumin Prealbumin LDL Cholesterol Direct HDL Cholesterol Arterial Blood Glucose Arterial Blood Ionized Calcium Urine WBC (Auto) 03/15/20 03/15/20 03/15/20 08:06 12:44 18:09 WBC RBC Hgb Hct MCV MCH RDW Plt Count Lymph % (Auto) [place] % (Auto) Lymph # (Auto) [place] # (Auto) Seg Neutrophils % Seg Neuts % (Manual) Lymphocytes % (Manual) Monocytes % (Manual) Basophils % (Manual) Seg Neutrophils # Seg Neutrophils # Man Lymphocytes # (Manual) Monocytes # (Manual) Eosinophils # (Manual) Basophils # (Manual) PT INR D-Dimer ABG pH POC ABG pCO2 POC ABG pO2 ABG pO2 ABG HCO3 ABG O2 Saturation ABG Base Excess ABG Hemoglobin ABG Oxyhemoglobin ABG Potassium ABG Glucose Oxyhemoglobin Carboxyhemoglobin Sodium 136 L Potassium Chloride 93.6 L Carbon Dioxide 37 H BUN Creatinine < 0.2 L Glucose 132 H POC Glucose 151 H 164 H Calcium Ferritin Total Bilirubin Alkaline Phosphatase Lactate Dehydrogenase Total Creatine Kinase CK-MB (CK-2) Rel Index Troponin T C-Reactive Protein Total Protein Albumin Prealbumin LDL Cholesterol Direct HDL Cholesterol Arterial Blood Glucose Arterial Blood Ionized Calcium Urine WBC (Auto) 03/15/20 03/16/20 03/16/20 23:26 05:39 11:58 WBC RBC Hgb Hct MCV MCH RDW Plt Count Lymph % (Auto) [place] % (Auto) Lymph # (Auto) [place] # (Auto) Seg Neutrophils % Seg Neuts % (Manual) Lymphocytes % (Manual) Monocytes % (Manual) Basophils % (Manual) Seg Neutrophils # Seg Neutrophils # Man Lymphocytes # (Manual) Monocytes # (Manual) Eosinophils # (Manual) Basophils # (Manual) PT INR D-Dimer ABG pH POC ABG pCO2 POC ABG pO2 ABG pO2 ABG HCO3 ABG O2 Saturation ABG Base Excess ABG Hemoglobin ABG Oxyhemoglobin ABG Potassium ABG Glucose Oxyhemoglobin Carboxyhemoglobin Sodium Potassium Chloride Carbon Dioxide BUN Creatinine Glucose POC Glucose 136 H 116 H 109 H Calcium Ferritin Total Bilirubin Alkaline Phosphatase Lactate Dehydrogenase Total Creatine Kinase CK-MB (CK-2) Rel Index Troponin T C-Reactive Protein Total Protein Albumin Prealbumin LDL Cholesterol Direct HDL Cholesterol Arterial Blood Glucose Arterial Blood Ionized Calcium Urine WBC (Auto) 03/16/20 03/17/20 03/17/20 23:56 04:40 04:40 WBC 18.0 H RBC 3.33 L Hgb 9.5 L Hct 28.8 L MCV MCH RDW 16.4 H Plt Count 499 H Lymph % (Auto) [place] % (Auto) Lymph # (Auto) [place] # (Auto) Seg Neutrophils % Seg Neuts % (Manual) 82.0 H Lymphocytes % (Manual) 8.0 L Monocytes % (Manual) Basophils % (Manual) Seg Neutrophils # Seg Neutrophils # Man 14.8 H Lymphocytes # (Manual) Monocytes # (Manual) 1.3 H Eosinophils # (Manual) Basophils # (Manual) 0.2 H PT INR D-Dimer ABG pH POC ABG pCO2 POC ABG pO2 ABG pO2 ABG HCO3 ABG O2 Saturation ABG Base Excess ABG Hemoglobin ABG Oxyhemoglobin ABG Potassium ABG Glucose Oxyhemoglobin Carboxyhemoglobin Sodium Potassium Chloride 97.7 L Carbon Dioxide 32 H BUN Creatinine < 0.2 L Glucose 114 H POC Glucose 131 H Calcium Ferritin Total Bilirubin Alkaline Phosphatase Lactate Dehydrogenase Total Creatine Kinase CK-MB (CK-2) Rel Index Troponin T C-Reactive Protein Total Protein Albumin Prealbumin LDL Cholesterol Direct HDL Cholesterol Arterial Blood Glucose Arterial Blood Ionized Calcium Urine WBC (Auto) 03/18/20 03/18/20 03/18/20 00:21 05:21 11:55 WBC RBC Hgb Hct MCV MCH RDW Plt Count Lymph % (Auto) [place] % (Auto) Lymph # (Auto) [place] # (Auto) Seg Neutrophils % Seg Neuts % (Manual) Lymphocytes % (Manual) Monocytes % (Manual) Basophils % (Manual) Seg Neutrophils # Seg Neutrophils # Man Lymphocytes # (Manual) Monocytes # (Manual) Eosinophils # (Manual) Basophils # (Manual) PT INR D-Dimer ABG pH POC ABG pCO2 POC ABG pO2 ABG pO2 ABG HCO3 ABG O2 Saturation ABG Base Excess ABG Hemoglobin ABG Oxyhemoglobin ABG Potassium ABG Glucose Oxyhemoglobin Carboxyhemoglobin Sodium Potassium Chloride Carbon Dioxide BUN Creatinine Glucose POC Glucose 124 H 138 H 119 H Calcium Ferritin Total Bilirubin Alkaline Phosphatase Lactate Dehydrogenase Total Creatine Kinase CK-MB (CK-2) Rel Index Troponin T C-Reactive Protein Total Protein Albumin Prealbumin LDL Cholesterol Direct HDL Cholesterol Arterial Blood Glucose Arterial Blood Ionized Calcium Urine WBC (Auto) 03/18/20 03/18/20 03/19/20 17:03 23:58 05:24 WBC RBC Hgb Hct MCV MCH RDW Plt Count Lymph % (Auto) [place] % (Auto) Lymph # (Auto) [place] # (Auto) Seg Neutrophils % Seg Neuts % (Manual) Lymphocytes % (Manual) Monocytes % (Manual) Basophils % (Manual) Seg Neutrophils # Seg Neutrophils # Man Lymphocytes # (Manual) Monocytes # (Manual) Eosinophils # (Manual) Basophils # (Manual) PT INR D-Dimer ABG pH POC ABG pCO2 POC ABG pO2 ABG pO2 ABG HCO3 ABG O2 Saturation ABG Base Excess ABG Hemoglobin ABG Oxyhemoglobin ABG Potassium ABG Glucose Oxyhemoglobin Carboxyhemoglobin Sodium Potassium Chloride Carbon Dioxide BUN Creatinine Glucose POC Glucose 128 H 128 H 115 H Calcium Ferritin Total Bilirubin Alkaline Phosphatase Lactate Dehydrogenase Total Creatine Kinase CK-MB (CK-2) Rel Index Troponin T C-Reactive Protein Total Protein Albumin Prealbumin LDL Cholesterol Direct HDL Cholesterol Arterial Blood Glucose Arterial Blood Ionized Calcium Urine WBC (Auto) 03/19/20 03/19/20 03/19/20 08:05 08:05 11:56 WBC 16.8 H RBC 3.36 L Hgb 9.4 L Hct 28.8 L MCV MCH RDW 17.4 H Plt Count 567 H Lymph % (Auto) 7.8 L [place] % (Auto) Lymph # (Auto) [place] # (Auto) 1.2 H Seg Neutrophils % 83.5 H Seg Neuts % (Manual) Lymphocytes % (Manual) Monocytes % (Manual) Basophils % (Manual) Seg Neutrophils # 14.1 H Seg Neutrophils # Man Lymphocytes # (Manual) Monocytes # (Manual) Eosinophils # (Manual) Basophils # (Manual) PT INR D-Dimer ABG pH POC ABG pCO2 POC ABG pO2 ABG pO2 ABG HCO3 ABG O2 Saturation ABG Base Excess ABG Hemoglobin ABG Oxyhemoglobin ABG Potassium ABG Glucose Oxyhemoglobin Carboxyhemoglobin Sodium Potassium Chloride Carbon Dioxide 36 H BUN Creatinine < 0.2 L Glucose 135 H POC Glucose 128 H Calcium Ferritin Total Bilirubin Alkaline Phosphatase Lactate Dehydrogenase Total Creatine Kinase CK-MB (CK-2) Rel Index Troponin T C-Reactive Protein Total Protein Albumin Prealbumin LDL Cholesterol Direct HDL Cholesterol Arterial Blood Glucose Arterial Blood Ionized Calcium Urine WBC (Auto) 03/19/20 03/20/20 03/20/20 23:59 05:12 16:52 WBC RBC Hgb Hct MCV MCH RDW Plt Count Lymph % (Auto) [place] % (Auto) Lymph # (Auto) [place] # (Auto) Seg Neutrophils % Seg Neuts % (Manual) Lymphocytes % (Manual) Monocytes % (Manual) Basophils % (Manual) Seg Neutrophils # Seg Neutrophils # Man Lymphocytes # (Manual) Monocytes # (Manual) Eosinophils # (Manual) Basophils # (Manual) PT INR D-Dimer ABG pH POC ABG pCO2 POC ABG pO2 ABG pO2 ABG HCO3 ABG O2 Saturation ABG Base Excess ABG Hemoglobin ABG Oxyhemoglobin ABG Potassium ABG Glucose Oxyhemoglobin Carboxyhemoglobin Sodium Potassium Chloride Carbon Dioxide BUN Creatinine Glucose POC Glucose 120 H 131 H 124 H Calcium Ferritin Total Bilirubin Alkaline Phosphatase Lactate Dehydrogenase Total Creatine Kinase CK-MB (CK-2) Rel Index Troponin T C-Reactive Protein Total Protein Albumin Prealbumin LDL Cholesterol Direct HDL Cholesterol Arterial Blood Glucose Arterial Blood Ionized Calcium Urine WBC (Auto) 03/20/20 03/21/20 03/21/20 23:35 04:50 07:35 WBC 15.2 H RBC 3.39 L Hgb 9.4 L Hct 29.4 L MCV MCH RDW 17.6 H Plt Count 518 H Lymph % (Auto) [place] % (Auto) Lymph # (Auto) [place] # (Auto) Seg Neutrophils % Seg Neuts % (Manual) 83.0 H Lymphocytes % (Manual) 10.0 L Monocytes % (Manual) Basophils % (Manual) 2.0 H Seg Neutrophils # Seg Neutrophils # Man 12.6 H Lymphocytes # (Manual) Monocytes # (Manual) Eosinophils # (Manual) Basophils # (Manual) 0.3 H PT INR D-Dimer ABG pH POC ABG pCO2 POC ABG pO2 ABG pO2 ABG HCO3 ABG O2 Saturation ABG Base Excess ABG Hemoglobin ABG Oxyhemoglobin ABG Potassium ABG Glucose Oxyhemoglobin Carboxyhemoglobin Sodium Potassium Chloride Carbon Dioxide BUN Creatinine Glucose POC Glucose 125 H 127 H Calcium Ferritin Total Bilirubin Alkaline Phosphatase Lactate Dehydrogenase Total Creatine Kinase CK-MB (CK-2) Rel Index Troponin T C-Reactive Protein Total Protein Albumin Prealbumin LDL Cholesterol Direct HDL Cholesterol Arterial Blood Glucose Arterial Blood Ionized Calcium Urine WBC (Auto) 03/21/20 03/21/20 03/21/20 07:35 11:45 17:22 WBC RBC Hgb Hct MCV MCH RDW Plt Count Lymph % (Auto) [place] % (Auto) Lymph # (Auto) [place] # (Auto) Seg Neutrophils % Seg Neuts % (Manual) Lymphocytes % (Manual) Monocytes % (Manual) Basophils % (Manual) Seg Neutrophils # Seg Neutrophils # Man Lymphocytes # (Manual) Monocytes # (Manual) Eosinophils # (Manual) Basophils # (Manual) PT INR D-Dimer ABG pH POC ABG pCO2 POC ABG pO2 ABG pO2 ABG HCO3 ABG O2 Saturation ABG Base Excess ABG Hemoglobin ABG Oxyhemoglobin ABG Potassium ABG Glucose Oxyhemoglobin Carboxyhemoglobin Sodium 136 L Potassium Chloride 97.7 L Carbon Dioxide 32 H BUN Creatinine < 0.2 L Glucose 103 H POC Glucose 126 H 120 H Calcium Ferritin Total Bilirubin Alkaline Phosphatase Lactate Dehydrogenase Total Creatine Kinase CK-MB (CK-2) Rel Index Troponin T C-Reactive Protein Total Protein Albumin Prealbumin LDL Cholesterol Direct HDL Cholesterol Arterial Blood Glucose Arterial Blood Ionized Calcium Urine WBC (Auto) 03/22/20 03/22/20 03/22/20 05:09 06:34 06:34 WBC 17.5 H RBC 3.52 L Hgb 10.0 L Hct 30.7 L MCV MCH RDW 17.5 H Plt Count 499 H Lymph % (Auto) [place] % (Auto) Lymph # (Auto) [place] # (Auto) Seg Neutrophils % Seg Neuts % (Manual) 80.0 H Lymphocytes % (Manual) 10.0 L Monocytes % (Manual) Basophils % (Manual) Seg Neutrophils # Seg Neutrophils # Man 14.0 H Lymphocytes # (Manual) Monocytes # (Manual) Eosinophils # (Manual) Basophils # (Manual) PT INR D-Dimer ABG pH POC ABG pCO2 POC ABG pO2 ABG pO2 ABG HCO3 ABG O2 Saturation ABG Base Excess ABG Hemoglobin ABG Oxyhemoglobin ABG Potassium ABG Glucose Oxyhemoglobin Carboxyhemoglobin Sodium Potassium Chloride 96.6 L Carbon Dioxide 38 H BUN Creatinine < 0.2 L Glucose 139 H POC Glucose 125 H Calcium Ferritin Total Bilirubin Alkaline Phosphatase Lactate Dehydrogenase Total Creatine Kinase CK-MB (CK-2) Rel Index Troponin T C-Reactive Protein Total Protein Albumin Prealbumin LDL Cholesterol Direct HDL Cholesterol Arterial Blood Glucose Arterial Blood Ionized Calcium Urine WBC (Auto) 03/22/20 03/22/20 03/22/20 11:45 18:00 23:32 WBC RBC Hgb Hct MCV MCH RDW Plt Count Lymph % (Auto) [place] % (Auto) Lymph # (Auto) [place] # (Auto) Seg Neutrophils % Seg Neuts % (Manual) Lymphocytes % (Manual) Monocytes % (Manual) Basophils % (Manual) Seg Neutrophils # Seg Neutrophils # Man Lymphocytes # (Manual) Monocytes # (Manual) Eosinophils # (Manual) Basophils # (Manual) PT INR D-Dimer ABG pH POC ABG pCO2 POC ABG pO2 ABG pO2 ABG HCO3 ABG O2 Saturation ABG Base Excess ABG Hemoglobin ABG Oxyhemoglobin ABG Potassium ABG Glucose Oxyhemoglobin Carboxyhemoglobin Sodium Potassium Chloride Carbon Dioxide BUN Creatinine Glucose POC Glucose 135 H 133 H Calcium Ferritin Total Bilirubin Alkaline Phosphatase Lactate Dehydrogenase Total Creatine Kinase CK-MB (CK-2) Rel Index Troponin T 0.113 H* C-Reactive Protein Total Protein Albumin Prealbumin LDL Cholesterol Direct HDL Cholesterol Arterial Blood Glucose Arterial Blood Ionized Calcium Urine WBC (Auto) 03/23/20 03/23/20 03/23/20 01:47 06:21 07:57 WBC RBC Hgb Hct MCV MCH RDW Plt Count Lymph % (Auto) [place] % (Auto) Lymph # (Auto) [place] # (Auto) Seg Neutrophils % Seg Neuts % (Manual) Lymphocytes % (Manual) Monocytes % (Manual) Basophils % (Manual) Seg Neutrophils # Seg Neutrophils # Man Lymphocytes # (Manual) Monocytes # (Manual) Eosinophils # (Manual) Basophils # (Manual) PT INR D-Dimer ABG pH POC ABG pCO2 POC ABG pO2 ABG pO2 ABG HCO3 ABG O2 Saturation ABG Base Excess ABG Hemoglobin ABG Oxyhemoglobin ABG Potassium ABG Glucose Oxyhemoglobin Carboxyhemoglobin Sodium Potassium Chloride Carbon Dioxide BUN Creatinine Glucose POC Glucose 130 H Calcium Ferritin Total Bilirubin Alkaline Phosphatase Lactate Dehydrogenase Total Creatine Kinase CK-MB (CK-2) Rel Index Troponin T 0.143 H* D 0.105 H* D C-Reactive Protein Total Protein Albumin Prealbumin LDL Cholesterol Direct HDL Cholesterol Arterial Blood Glucose Arterial Blood Ionized Calcium Urine WBC (Auto) 03/23/20 03/24/20 03/24/20 12:02 05:33 07:15 WBC 18.0 H RBC Hgb 11.0 L Hct 34.0 L MCV MCH RDW 17.4 H Plt Count 520 H Lymph % (Auto) [place] % (Auto) Lymph # (Auto) [place] # (Auto) Seg Neutrophils % Seg Neuts % (Manual) 88.0 H Lymphocytes % (Manual) 7.0 L Monocytes % (Manual) Basophils % (Manual) Seg Neutrophils # Seg Neutrophils # Man 15.8 H Lymphocytes # (Manual) Monocytes # (Manual) Eosinophils # (Manual) Basophils # (Manual) PT INR D-Dimer ABG pH POC ABG pCO2 POC ABG pO2 ABG pO2 ABG HCO3 ABG O2 Saturation ABG Base Excess ABG Hemoglobin ABG Oxyhemoglobin ABG Potassium ABG Glucose Oxyhemoglobin Carboxyhemoglobin Sodium Potassium Chloride Carbon Dioxide BUN Creatinine Glucose POC Glucose 137 H 112 H Calcium Ferritin Total Bilirubin Alkaline Phosphatase Lactate Dehydrogenase Total Creatine Kinase CK-MB (CK-2) Rel Index Troponin T C-Reactive Protein Total Protein Albumin Prealbumin LDL Cholesterol Direct HDL Cholesterol Arterial Blood Glucose Arterial Blood Ionized Calcium Urine WBC (Auto) 03/24/20 03/24/20 03/24/20 07:15 11:22 23:30 WBC RBC Hgb Hct MCV MCH RDW Plt Count Lymph % (Auto) [place] % (Auto) Lymph # (Auto) [place] # (Auto) Seg Neutrophils % Seg Neuts % (Manual) Lymphocytes % (Manual) Monocytes % (Manual) Basophils % (Manual) Seg Neutrophils # Seg Neutrophils # Man Lymphocytes # (Manual) Monocytes # (Manual) Eosinophils # (Manual) Basophils # (Manual) PT INR D-Dimer ABG pH POC ABG pCO2 POC ABG pO2 ABG pO2 ABG HCO3 ABG O2 Saturation ABG Base Excess ABG Hemoglobin ABG Oxyhemoglobin ABG Potassium ABG Glucose Oxyhemoglobin Carboxyhemoglobin Sodium Potassium Chloride 96.6 L Carbon Dioxide 38 H BUN Creatinine < 0.2 L Glucose 141 H POC Glucose 130 H 120 H Calcium Ferritin Total Bilirubin Alkaline Phosphatase Lactate Dehydrogenase Total Creatine Kinase CK-MB (CK-2) Rel Index Troponin T C-Reactive Protein Total Protein Albumin Prealbumin LDL Cholesterol Direct HDL Cholesterol Arterial Blood Glucose Arterial Blood Ionized Calcium Urine WBC (Auto) 03/25/20 03/25/20 03/25/20 05:48 17:53 23:18 WBC RBC Hgb Hct MCV MCH RDW Plt Count Lymph % (Auto) [place] % (Auto) Lymph # (Auto) [place] # (Auto) Seg Neutrophils % Seg Neuts % (Manual) Lymphocytes % (Manual) Monocytes % (Manual) Basophils % (Manual) Seg Neutrophils # Seg Neutrophils # Man Lymphocytes # (Manual) Monocytes # (Manual) Eosinophils # (Manual) Basophils # (Manual) PT INR D-Dimer ABG pH POC ABG pCO2 POC ABG pO2 ABG pO2 ABG HCO3 ABG O2 Saturation ABG Base Excess ABG Hemoglobin ABG Oxyhemoglobin ABG Potassium ABG Glucose Oxyhemoglobin Carboxyhemoglobin Sodium Potassium Chloride Carbon Dioxide BUN Creatinine Glucose POC Glucose 124 H 109 H 131 H Calcium Ferritin Total Bilirubin Alkaline Phosphatase Lactate Dehydrogenase Total Creatine Kinase CK-MB (CK-2) Rel Index Troponin T C-Reactive Protein Total Protein Albumin Prealbumin LDL Cholesterol Direct HDL Cholesterol Arterial Blood Glucose Arterial Blood Ionized Calcium Urine WBC (Auto) 03/26/20 03/26/20 03/26/20 05:21 08:49 08:49 WBC 19.7 H RBC Hgb 10.7 L Hct 33.5 L MCV MCH 27 L RDW 17.1 H Plt Count 480 H Lymph % (Auto) 5.7 L [place] % (Auto) Lymph # (Auto) 1.1 L [place] # (Auto) 1.2 H Seg Neutrophils % 87.7 H Seg Neuts % (Manual) Lymphocytes % (Manual) Monocytes % (Manual) Basophils % (Manual) Seg Neutrophils # 17.2 H Seg Neutrophils # Man Lymphocytes # (Manual) Monocytes # (Manual) Eosinophils # (Manual) Basophils # (Manual) PT INR D-Dimer ABG pH POC ABG pCO2 POC ABG pO2 ABG pO2 ABG HCO3 ABG O2 Saturation ABG Base Excess ABG Hemoglobin ABG Oxyhemoglobin ABG Potassium ABG Glucose Oxyhemoglobin Carboxyhemoglobin Sodium Potassium Chloride 97.2 L Carbon Dioxide 36 H BUN Creatinine < 0.2 L Glucose 127 H POC Glucose 116 H Calcium Ferritin Total Bilirubin Alkaline Phosphatase Lactate Dehydrogenase Total Creatine Kinase CK-MB (CK-2) Rel Index Troponin T C-Reactive Protein Total Protein Albumin Prealbumin LDL Cholesterol Direct HDL Cholesterol Arterial Blood Glucose Arterial Blood Ionized Calcium Urine WBC (Auto) 03/26/20 03/26/20 03/26/20 11:38 18:44 23:06 WBC RBC Hgb Hct MCV MCH RDW Plt Count Lymph % (Auto) [place] % (Auto) Lymph # (Auto) [place] # (Auto) Seg Neutrophils % Seg Neuts % (Manual) Lymphocytes % (Manual) Monocytes % (Manual) Basophils % (Manual) Seg Neutrophils # Seg Neutrophils # Man Lymphocytes # (Manual) Monocytes # (Manual) Eosinophils # (Manual) Basophils # (Manual) PT INR D-Dimer ABG pH POC ABG pCO2 POC ABG pO2 ABG pO2 ABG HCO3 ABG O2 Saturation ABG Base Excess ABG Hemoglobin ABG Oxyhemoglobin ABG Potassium ABG Glucose Oxyhemoglobin Carboxyhemoglobin Sodium Potassium Chloride Carbon Dioxide BUN Creatinine Glucose POC Glucose 120 H 111 H 134 H Calcium Ferritin Total Bilirubin Alkaline Phosphatase Lactate Dehydrogenase Total Creatine Kinase CK-MB (CK-2) Rel Index Troponin T C-Reactive Protein Total Protein Albumin Prealbumin LDL Cholesterol Direct HDL Cholesterol Arterial Blood Glucose Arterial Blood Ionized Calcium Urine WBC (Auto) 03/27/20 03/27/20 03/27/20 05:41 05:59 05:59 WBC 18.6 H RBC Hgb 10.1 L Hct 31.4 L MCV MCH RDW 17.2 H Plt Count Lymph % (Auto) 8.0 L [place] % (Auto) Lymph # (Auto) [place] # (Auto) 1.2 H Seg Neutrophils % 84.7 H Seg Neuts % (Manual) Lymphocytes % (Manual) Monocytes % (Manual) Basophils % (Manual) Seg Neutrophils # 15.8 H Seg Neutrophils # Man Lymphocytes # (Manual) Monocytes # (Manual) Eosinophils # (Manual) Basophils # (Manual) PT INR D-Dimer ABG pH POC ABG pCO2 POC ABG pO2 ABG pO2 ABG HCO3 ABG O2 Saturation ABG Base Excess ABG Hemoglobin ABG Oxyhemoglobin ABG Potassium ABG Glucose Oxyhemoglobin Carboxyhemoglobin Sodium Potassium Chloride Carbon Dioxide 34 H BUN Creatinine < 0.2 L Glucose 127 H POC Glucose 129 H Calcium Ferritin Total Bilirubin Alkaline Phosphatase Lactate Dehydrogenase Total Creatine Kinase CK-MB (CK-2) Rel Index Troponin T C-Reactive Protein Total Protein Albumin Prealbumin LDL Cholesterol Direct HDL Cholesterol Arterial Blood Glucose Arterial Blood Ionized Calcium Urine WBC (Auto) 03/27/20 03/27/20 03/28/20 17:28 23:22 05:23 WBC RBC Hgb Hct MCV MCH RDW Plt Count Lymph % (Auto) [place] % (Auto) Lymph # (Auto) [place] # (Auto) Seg Neutrophils % Seg Neuts % (Manual) Lymphocytes % (Manual) Monocytes % (Manual) Basophils % (Manual) Seg Neutrophils # Seg Neutrophils # Man Lymphocytes # (Manual) Monocytes # (Manual) Eosinophils # (Manual) Basophils # (Manual) PT INR D-Dimer ABG pH POC ABG pCO2 POC ABG pO2 ABG pO2 ABG HCO3 ABG O2 Saturation ABG Base Excess ABG Hemoglobin ABG Oxyhemoglobin ABG Potassium ABG Glucose Oxyhemoglobin Carboxyhemoglobin Sodium Potassium Chloride Carbon Dioxide BUN Creatinine Glucose POC Glucose 108 H 119 H 129 H Calcium Ferritin Total Bilirubin Alkaline Phosphatase Lactate Dehydrogenase Total Creatine Kinase CK-MB (CK-2) Rel Index Troponin T C-Reactive Protein Total Protein Albumin Prealbumin LDL Cholesterol Direct HDL Cholesterol Arterial Blood Glucose Arterial Blood Ionized Calcium Urine WBC (Auto) 03/28/20 03/28/20 03/28/20 10:28 10:28 11:36 WBC 23.6 H RBC 3.62 L Hgb 10.0 L Hct 30.8 L MCV MCH RDW 16.4 H Plt Count Lymph % (Auto) [place] % (Auto) Lymph # (Auto) [place] # (Auto) Seg Neutrophils % Seg Neuts % (Manual) 89.0 H Lymphocytes % (Manual) 5.0 L Monocytes % (Manual) Basophils % (Manual) Seg Neutrophils # Seg Neutrophils # Man 21.0 H Lymphocytes # (Manual) Monocytes # (Manual) 1.2 H Eosinophils # (Manual) Basophils # (Manual) 0.2 H PT INR D-Dimer ABG pH POC ABG pCO2 POC ABG pO2 ABG pO2 ABG HCO3 ABG O2 Saturation ABG Base Excess ABG Hemoglobin ABG Oxyhemoglobin ABG Potassium ABG Glucose Oxyhemoglobin Carboxyhemoglobin Sodium 134 L Potassium Chloride 94.2 L Carbon Dioxide 35 H BUN Creatinine < 0.2 L Glucose 134 H POC Glucose Calcium Ferritin Total Bilirubin Alkaline Phosphatase Lactate Dehydrogenase Total Creatine Kinase CK-MB (CK-2) Rel Index Troponin T C-Reactive Protein Total Protein Albumin Prealbumin LDL Cholesterol Direct HDL Cholesterol Arterial Blood Glucose Arterial Blood Ionized Calcium Urine WBC (Auto) 39.0 H 03/28/20 03/28/20 03/28/20 11:51 17:08 17:17 WBC RBC Hgb Hct MCV MCH RDW Plt Count Lymph % (Auto) [place] % (Auto) Lymph # (Auto) [place] # (Auto) Seg Neutrophils % Seg Neuts % (Manual) Lymphocytes % (Manual) Monocytes % (Manual) Basophils % (Manual) Seg Neutrophils # Seg Neutrophils # Man Lymphocytes # (Manual) Monocytes # (Manual) Eosinophils # (Manual) Basophils # (Manual) PT INR D-Dimer ABG pH POC ABG pCO2 POC ABG pO2 ABG pO2 ABG HCO3 ABG O2 Saturation ABG Base Excess ABG Hemoglobin ABG Oxyhemoglobin ABG Potassium ABG Glucose Oxyhemoglobin Carboxyhemoglobin Sodium Potassium Chloride Carbon Dioxide BUN Creatinine Glucose POC Glucose 123 H 112 H Calcium Ferritin Total Bilirubin Alkaline Phosphatase Lactate Dehydrogenase Total Creatine Kinase 47 L CK-MB (CK-2) Rel Index 4.6 H Troponin T 0.090 H C-Reactive Protein Total Protein Albumin Prealbumin LDL Cholesterol Direct HDL Cholesterol Arterial Blood Glucose Arterial Blood Ionized Calcium Urine WBC (Auto) 03/28/20 03/29/20 03/29/20 23:22 05:22 10:58 WBC RBC Hgb Hct MCV MCH RDW Plt Count Lymph % (Auto) [place] % (Auto) Lymph # (Auto) [place] # (Auto) Seg Neutrophils % Seg Neuts % (Manual) Lymphocytes % (Manual) Monocytes % (Manual) Basophils % (Manual) Seg Neutrophils # Seg Neutrophils # Man Lymphocytes # (Manual) Monocytes # (Manual) Eosinophils # (Manual) Basophils # (Manual) PT INR D-Dimer ABG pH POC ABG pCO2 POC ABG pO2 ABG pO2 ABG HCO3 ABG O2 Saturation ABG Base Excess ABG Hemoglobin ABG Oxyhemoglobin ABG Potassium ABG Glucose Oxyhemoglobin Carboxyhemoglobin Sodium Potassium Chloride Carbon Dioxide BUN Creatinine Glucose POC Glucose 122 H 116 H 133 H Calcium Ferritin Total Bilirubin Alkaline Phosphatase Lactate Dehydrogenase Total Creatine Kinase CK-MB (CK-2) Rel Index Troponin T C-Reactive Protein Total Protein Albumin Prealbumin LDL Cholesterol Direct HDL Cholesterol Arterial Blood Glucose Arterial Blood Ionized Calcium Urine WBC (Auto) 03/29/20 03/29/20 03/30/20 17:18 23:14 04:57 WBC RBC Hgb Hct MCV MCH RDW Plt Count Lymph % (Auto) [place] % (Auto) Lymph # (Auto) [place] # (Auto) Seg Neutrophils % Seg Neuts % (Manual) Lymphocytes % (Manual) Monocytes % (Manual) Basophils % (Manual) Seg Neutrophils # Seg Neutrophils # Man Lymphocytes # (Manual) Monocytes # (Manual) Eosinophils # (Manual) Basophils # (Manual) PT INR D-Dimer ABG pH POC ABG pCO2 POC ABG pO2 ABG pO2 ABG HCO3 ABG O2 Saturation ABG Base Excess ABG Hemoglobin ABG Oxyhemoglobin ABG Potassium ABG Glucose Oxyhemoglobin Carboxyhemoglobin Sodium Potassium Chloride Carbon Dioxide BUN Creatinine Glucose POC Glucose 111 H 114 H 130 H Calcium Ferritin Total Bilirubin Alkaline Phosphatase Lactate Dehydrogenase Total Creatine Kinase CK-MB (CK-2) Rel Index Troponin T C-Reactive Protein Total Protein Albumin Prealbumin LDL Cholesterol Direct HDL Cholesterol Arterial Blood Glucose Arterial Blood Ionized Calcium Urine WBC (Auto) 03/30/20 03/30/20 03/30/20 11:38 14:47 14:47 WBC 19.9 H RBC Hgb 10.9 L Hct 34.4 L MCV MCH 27 L RDW 16.5 H Plt Count 441 H Lymph % (Auto) 6.4 L [place] % (Auto) Lymph # (Auto) [place] # (Auto) 1.4 H Seg Neutrophils % 86.1 H Seg Neuts % (Manual) Lymphocytes % (Manual) Monocytes % (Manual) Basophils % (Manual) Seg Neutrophils # 17.1 H Seg Neutrophils # Man Lymphocytes # (Manual) Monocytes # (Manual) Eosinophils # (Manual) Basophils # (Manual) PT INR D-Dimer ABG pH POC ABG pCO2 POC ABG pO2 ABG pO2 ABG HCO3 ABG O2 Saturation ABG Base Excess ABG Hemoglobin ABG Oxyhemoglobin ABG Potassium ABG Glucose Oxyhemoglobin Carboxyhemoglobin Sodium 133 L Potassium Chloride 94.6 L Carbon Dioxide 33 H BUN Creatinine < 0.2 L Glucose 194 H POC Glucose 139 H Calcium Ferritin Total Bilirubin Alkaline Phosphatase Lactate Dehydrogenase Total Creatine Kinase CK-MB (CK-2) Rel Index Troponin T C-Reactive Protein Total Protein Albumin 2.8 L Prealbumin LDL Cholesterol Direct HDL Cholesterol Arterial Blood Glucose Arterial Blood Ionized Calcium Urine WBC (Auto) 03/30/20 03/31/20 03/31/20 17:07 05:02 15:21 WBC RBC Hgb Hct MCV MCH RDW Plt Count Lymph % (Auto) [place] % (Auto) Lymph # (Auto) [place] # (Auto) Seg Neutrophils % Seg Neuts % (Manual) Lymphocytes % (Manual) Monocytes % (Manual) Basophils % (Manual) Seg Neutrophils # Seg Neutrophils # Man Lymphocytes # (Manual) Monocytes # (Manual) Eosinophils # (Manual) Basophils # (Manual) PT INR D-Dimer ABG pH POC ABG pCO2 POC ABG pO2 ABG pO2 ABG HCO3 ABG O2 Saturation ABG Base Excess ABG Hemoglobin ABG Oxyhemoglobin ABG Potassium ABG Glucose Oxyhemoglobin Carboxyhemoglobin Sodium Potassium Chloride Carbon Dioxide BUN Creatinine Glucose POC Glucose 163 H 108 H 110 H Calcium Ferritin Total Bilirubin Alkaline Phosphatase Lactate Dehydrogenase Total Creatine Kinase CK-MB (CK-2) Rel Index Troponin T C-Reactive Protein Total Protein Albumin Prealbumin LDL Cholesterol Direct HDL Cholesterol Arterial Blood Glucose Arterial Blood Ionized Calcium Urine WBC (Auto) 03/31/20 03/31/20 04/01/20 17:58 23:19 05:09 WBC RBC Hgb Hct MCV MCH RDW Plt Count Lymph % (Auto) [place] % (Auto) Lymph # (Auto) [place] # (Auto) Seg Neutrophils % Seg Neuts % (Manual) Lymphocytes % (Manual) Monocytes % (Manual) Basophils % (Manual) Seg Neutrophils # Seg Neutrophils # Man Lymphocytes # (Manual) Monocytes # (Manual) Eosinophils # (Manual) Basophils # (Manual) PT INR D-Dimer ABG pH POC ABG pCO2 POC ABG pO2 ABG pO2 ABG HCO3 ABG O2 Saturation ABG Base Excess ABG Hemoglobin ABG Oxyhemoglobin ABG Potassium ABG Glucose Oxyhemoglobin Carboxyhemoglobin Sodium Potassium Chloride Carbon Dioxide BUN Creatinine Glucose POC Glucose 110 H 131 H 124 H Calcium Ferritin Total Bilirubin Alkaline Phosphatase Lactate Dehydrogenase Total Creatine Kinase CK-MB (CK-2) Rel Index Troponin T C-Reactive Protein Total Protein Albumin Prealbumin LDL Cholesterol Direct HDL Cholesterol Arterial Blood Glucose Arterial Blood Ionized Calcium Urine WBC (Auto) 04/01/20 04/01/20 04/01/20 11:50 17:01 23:21 WBC RBC Hgb Hct MCV MCH RDW Plt Count Lymph % (Auto) [place] % (Auto) Lymph # (Auto) [place] # (Auto) Seg Neutrophils % Seg Neuts % (Manual) Lymphocytes % (Manual) Monocytes % (Manual) Basophils % (Manual) Seg Neutrophils # Seg Neutrophils # Man Lymphocytes # (Manual) Monocytes # (Manual) Eosinophils # (Manual) Basophils # (Manual) PT INR D-Dimer ABG pH POC ABG pCO2 POC ABG pO2 ABG pO2 ABG HCO3 ABG O2 Saturation ABG Base Excess ABG Hemoglobin ABG Oxyhemoglobin ABG Potassium ABG Glucose Oxyhemoglobin Carboxyhemoglobin Sodium Potassium Chloride Carbon Dioxide BUN Creatinine Glucose POC Glucose 136 H 115 H 124 H Calcium Ferritin Total Bilirubin Alkaline Phosphatase Lactate Dehydrogenase Total Creatine Kinase CK-MB (CK-2) Rel Index Troponin T C-Reactive Protein Total Protein Albumin Prealbumin LDL Cholesterol Direct HDL Cholesterol Arterial Blood Glucose Arterial Blood Ionized Calcium Urine WBC (Auto) 04/02/20 04/02/20 04/02/20 05:27 11:58 17:58 WBC RBC Hgb Hct MCV MCH RDW Plt Count Lymph % (Auto) [place] % (Auto) Lymph # (Auto) [place] # (Auto) Seg Neutrophils % Seg Neuts % (Manual) Lymphocytes % (Manual) Monocytes % (Manual) Basophils % (Manual) Seg Neutrophils # Seg Neutrophils # Man Lymphocytes # (Manual) Monocytes # (Manual) Eosinophils # (Manual) Basophils # (Manual) PT INR D-Dimer ABG pH POC ABG pCO2 POC ABG pO2 ABG pO2 ABG HCO3 ABG O2 Saturation ABG Base Excess ABG Hemoglobin ABG Oxyhemoglobin ABG Potassium ABG Glucose Oxyhemoglobin Carboxyhemoglobin Sodium Potassium Chloride Carbon Dioxide BUN Creatinine Glucose POC Glucose 117 H 133 H 122 H Calcium Ferritin Total Bilirubin Alkaline Phosphatase Lactate Dehydrogenase Total Creatine Kinase CK-MB (CK-2) Rel Index Troponin T C-Reactive Protein Total Protein Albumin Prealbumin LDL Cholesterol Direct HDL Cholesterol Arterial Blood Glucose Arterial Blood Ionized Calcium Urine WBC (Auto) 04/02/20 04/03/20 04/03/20 23:12 05:11 11:11 WBC RBC Hgb Hct MCV MCH RDW Plt Count Lymph % (Auto) [place] % (Auto) Lymph # (Auto) [place] # (Auto) Seg Neutrophils % Seg Neuts % (Manual) Lymphocytes % (Manual) Monocytes % (Manual) Basophils % (Manual) Seg Neutrophils # Seg Neutrophils # Man Lymphocytes # (Manual) Monocytes # (Manual) Eosinophils # (Manual) Basophils # (Manual) PT INR D-Dimer ABG pH POC ABG pCO2 POC ABG pO2 ABG pO2 ABG HCO3 ABG O2 Saturation ABG Base Excess ABG Hemoglobin ABG Oxyhemoglobin ABG Potassium ABG Glucose Oxyhemoglobin Carboxyhemoglobin Sodium Potassium Chloride Carbon Dioxide BUN Creatinine Glucose POC Glucose 130 H 139 H 136 H Calcium Ferritin Total Bilirubin Alkaline Phosphatase Lactate Dehydrogenase Total Creatine Kinase CK-MB (CK-2) Rel Index Troponin T C-Reactive Protein Total Protein Albumin Prealbumin LDL Cholesterol Direct HDL Cholesterol Arterial Blood Glucose Arterial Blood Ionized Calcium Urine WBC (Auto) 04/03/20 04/03/20 04/04/20 16:51 23:25 05:29 WBC RBC Hgb Hct MCV MCH RDW Plt Count Lymph % (Auto) [place] % (Auto) Lymph # (Auto) [place] # (Auto) Seg Neutrophils % Seg Neuts % (Manual) Lymphocytes % (Manual) Monocytes % (Manual) Basophils % (Manual) Seg Neutrophils # Seg Neutrophils # Man Lymphocytes # (Manual) Monocytes # (Manual) Eosinophils # (Manual) Basophils # (Manual) PT INR D-Dimer ABG pH POC ABG pCO2 POC ABG pO2 ABG pO2 ABG HCO3 ABG O2 Saturation ABG Base Excess ABG Hemoglobin ABG Oxyhemoglobin ABG Potassium ABG Glucose Oxyhemoglobin Carboxyhemoglobin Sodium Potassium Chloride Carbon Dioxide BUN Creatinine Glucose POC Glucose 118 H 111 H 126 H Calcium Ferritin Total Bilirubin Alkaline Phosphatase Lactate Dehydrogenase Total Creatine Kinase CK-MB (CK-2) Rel Index Troponin T C-Reactive Protein Total Protein Albumin Prealbumin LDL Cholesterol Direct HDL Cholesterol Arterial Blood Glucose Arterial Blood Ionized Calcium Urine WBC (Auto) 04/04/20 04/04/20 04/04/20 11:47 17:41 23:05 WBC RBC Hgb Hct MCV MCH RDW Plt Count Lymph % (Auto) [place] % (Auto) Lymph # (Auto) [place] # (Auto) Seg Neutrophils % Seg Neuts % (Manual) Lymphocytes % (Manual) Monocytes % (Manual) Basophils % (Manual) Seg Neutrophils # Seg Neutrophils # Man Lymphocytes # (Manual) Monocytes # (Manual) Eosinophils # (Manual) Basophils # (Manual) PT INR D-Dimer ABG pH POC ABG pCO2 POC ABG pO2 ABG pO2 ABG HCO3 ABG O2 Saturation ABG Base Excess ABG Hemoglobin ABG Oxyhemoglobin ABG Potassium ABG Glucose Oxyhemoglobin Carboxyhemoglobin Sodium Potassium Chloride Carbon Dioxide BUN Creatinine Glucose POC Glucose 123 H 120 H 119 H Calcium Ferritin Total Bilirubin Alkaline Phosphatase Lactate Dehydrogenase Total Creatine Kinase CK-MB (CK-2) Rel Index Troponin T C-Reactive Protein Total Protein Albumin Prealbumin LDL Cholesterol Direct HDL Cholesterol Arterial Blood Glucose Arterial Blood Ionized Calcium Urine WBC (Auto) 04/05/20 04/05/20 04/05/20 05:14 12:16 18:48 WBC RBC Hgb Hct MCV MCH RDW Plt Count Lymph % (Auto) [place] % (Auto) Lymph # (Auto) [place] # (Auto) Seg Neutrophils % Seg Neuts % (Manual) Lymphocytes % (Manual) Monocytes % (Manual) Basophils % (Manual) Seg Neutrophils # Seg Neutrophils # Man Lymphocytes # (Manual) Monocytes # (Manual) Eosinophils # (Manual) Basophils # (Manual) PT INR D-Dimer ABG pH POC ABG pCO2 POC ABG pO2 ABG pO2 ABG HCO3 ABG O2 Saturation ABG Base Excess ABG Hemoglobin ABG Oxyhemoglobin ABG Potassium ABG Glucose Oxyhemoglobin Carboxyhemoglobin Sodium Potassium Chloride Carbon Dioxide BUN Creatinine Glucose POC Glucose 123 H 148 H 106 H Calcium Ferritin Total Bilirubin Alkaline Phosphatase Lactate Dehydrogenase Total Creatine Kinase CK-MB (CK-2) Rel Index Troponin T C-Reactive Protein Total Protein Albumin Prealbumin LDL Cholesterol Direct HDL Cholesterol Arterial Blood Glucose Arterial Blood Ionized Calcium Urine WBC (Auto) 04/06/20 04/06/20 04/06/20 00:47 03:26 08:24 WBC RBC Hgb Hct MCV MCH RDW Plt Count Lymph % (Auto) [place] % (Auto) Lymph # (Auto) [place] # (Auto) Seg Neutrophils % Seg Neuts % (Manual) Lymphocytes % (Manual) Monocytes % (Manual) Basophils % (Manual) Seg Neutrophils # Seg Neutrophils # Man Lymphocytes # (Manual) Monocytes # (Manual) Eosinophils # (Manual) Basophils # (Manual) PT INR D-Dimer ABG pH POC ABG pCO2 POC ABG pO2 ABG pO2 ABG HCO3 ABG O2 Saturation ABG Base Excess ABG Hemoglobin ABG Oxyhemoglobin ABG Potassium ABG Glucose Oxyhemoglobin Carboxyhemoglobin Sodium Potassium Chloride Carbon Dioxide BUN Creatinine Glucose POC Glucose 129 H 134 H 131 H Calcium Ferritin Total Bilirubin Alkaline Phosphatase Lactate Dehydrogenase Total Creatine Kinase CK-MB (CK-2) Rel Index Troponin T C-Reactive Protein Total Protein Albumin Prealbumin LDL Cholesterol Direct HDL Cholesterol Arterial Blood Glucose Arterial Blood Ionized Calcium Urine WBC (Auto) 04/06/20 04/06/20 04/06/20 11:16 16:27 23:01 WBC RBC Hgb Hct MCV MCH RDW Plt Count Lymph % (Auto) [place] % (Auto) Lymph # (Auto) [place] # (Auto) Seg Neutrophils % Seg Neuts % (Manual) Lymphocytes % (Manual) Monocytes % (Manual) Basophils % (Manual) Seg Neutrophils # Seg Neutrophils # Man Lymphocytes # (Manual) Monocytes # (Manual) Eosinophils # (Manual) Basophils # (Manual) PT INR D-Dimer ABG pH POC ABG pCO2 POC ABG pO2 ABG pO2 ABG HCO3 ABG O2 Saturation ABG Base Excess ABG Hemoglobin ABG Oxyhemoglobin ABG Potassium ABG Glucose Oxyhemoglobin Carboxyhemoglobin Sodium Potassium Chloride Carbon Dioxide BUN Creatinine Glucose POC Glucose 131 H 107 H 125 H Calcium Ferritin Total Bilirubin Alkaline Phosphatase Lactate Dehydrogenase Total Creatine Kinase CK-MB (CK-2) Rel Index Troponin T C-Reactive Protein Total Protein Albumin Prealbumin LDL Cholesterol Direct HDL Cholesterol Arterial Blood Glucose Arterial Blood Ionized Calcium Urine WBC (Auto) 04/07/20 04/07/20 04/07/20 05:24 12:41 17:40 WBC RBC Hgb Hct MCV MCH RDW Plt Count Lymph % (Auto) [place] % (Auto) Lymph # (Auto) [place] # (Auto) Seg Neutrophils % Seg Neuts % (Manual) Lymphocytes % (Manual) Monocytes % (Manual) Basophils % (Manual) Seg Neutrophils # Seg Neutrophils # Man Lymphocytes # (Manual) Monocytes # (Manual) Eosinophils # (Manual) Basophils # (Manual) PT INR D-Dimer ABG pH POC ABG pCO2 POC ABG pO2 ABG pO2 ABG HCO3 ABG O2 Saturation ABG Base Excess ABG Hemoglobin ABG Oxyhemoglobin ABG Potassium ABG Glucose Oxyhemoglobin Carboxyhemoglobin Sodium Potassium Chloride Carbon Dioxide BUN Creatinine Glucose POC Glucose 125 H 145 H 123 H Calcium Ferritin Total Bilirubin Alkaline Phosphatase Lactate Dehydrogenase Total Creatine Kinase CK-MB (CK-2) Rel Index Troponin T C-Reactive Protein Total Protein Albumin Prealbumin LDL Cholesterol Direct HDL Cholesterol Arterial Blood Glucose Arterial Blood Ionized Calcium Urine WBC (Auto) 04/07/20 04/08/20 04/08/20 23:22 05:40 11:29 WBC RBC Hgb Hct MCV MCH RDW Plt Count Lymph % (Auto) [place] % (Auto) Lymph # (Auto) [place] # (Auto) Seg Neutrophils % Seg Neuts % (Manual) Lymphocytes % (Manual) Monocytes % (Manual) Basophils % (Manual) Seg Neutrophils # Seg Neutrophils # Man Lymphocytes # (Manual) Monocytes # (Manual) Eosinophils # (Manual) Basophils # (Manual) PT INR D-Dimer ABG pH POC ABG pCO2 POC ABG pO2 ABG pO2 ABG HCO3 ABG O2 Saturation ABG Base Excess ABG Hemoglobin ABG Oxyhemoglobin ABG Potassium ABG Glucose Oxyhemoglobin Carboxyhemoglobin Sodium Potassium Chloride Carbon Dioxide BUN Creatinine Glucose POC Glucose 133 H 125 H 116 H Calcium Ferritin Total Bilirubin Alkaline Phosphatase Lactate Dehydrogenase Total Creatine Kinase CK-MB (CK-2) Rel Index Troponin T C-Reactive Protein Total Protein Albumin Prealbumin LDL Cholesterol Direct HDL Cholesterol Arterial Blood Glucose Arterial Blood Ionized Calcium Urine WBC (Auto) 04/08/20 04/09/20 04/09/20 17:43 05:47 12:22 WBC RBC Hgb Hct MCV MCH RDW Plt Count Lymph % (Auto) [place] % (Auto) Lymph # (Auto) [place] # (Auto) Seg Neutrophils % Seg Neuts % (Manual) Lymphocytes % (Manual) Monocytes % (Manual) Basophils % (Manual) Seg Neutrophils # Seg Neutrophils # Man Lymphocytes # (Manual) Monocytes # (Manual) Eosinophils # (Manual) Basophils # (Manual) PT INR D-Dimer ABG pH POC ABG pCO2 POC ABG pO2 ABG pO2 ABG HCO3 ABG O2 Saturation ABG Base Excess ABG Hemoglobin ABG Oxyhemoglobin ABG Potassium ABG Glucose Oxyhemoglobin Carboxyhemoglobin Sodium Potassium Chloride Carbon Dioxide BUN Creatinine Glucose POC Glucose 123 H 108 H 116 H Calcium Ferritin Total Bilirubin Alkaline Phosphatase Lactate Dehydrogenase Total Creatine Kinase CK-MB (CK-2) Rel Index Troponin T C-Reactive Protein Total Protein Albumin Prealbumin LDL Cholesterol Direct HDL Cholesterol Arterial Blood Glucose Arterial Blood Ionized Calcium Urine WBC (Auto) 04/09/20 04/09/20 04/10/20 17:24 23:52 06:10 WBC RBC Hgb Hct MCV MCH RDW Plt Count Lymph % (Auto) [place] % (Auto) Lymph # (Auto) [place] # (Auto) Seg Neutrophils % Seg Neuts % (Manual) Lymphocytes % (Manual) Monocytes % (Manual) Basophils % (Manual) Seg Neutrophils # Seg Neutrophils # Man Lymphocytes # (Manual) Monocytes # (Manual) Eosinophils # (Manual) Basophils # (Manual) PT INR D-Dimer ABG pH POC ABG pCO2 POC ABG pO2 ABG pO2 ABG HCO3 ABG O2 Saturation ABG Base Excess ABG Hemoglobin ABG Oxyhemoglobin ABG Potassium ABG Glucose Oxyhemoglobin Carboxyhemoglobin Sodium Potassium Chloride Carbon Dioxide BUN Creatinine Glucose POC Glucose 108 H 126 H 122 H Calcium Ferritin Total Bilirubin Alkaline Phosphatase Lactate Dehydrogenase Total Creatine Kinase CK-MB (CK-2) Rel Index Troponin T C-Reactive Protein Total Protein Albumin Prealbumin LDL Cholesterol Direct HDL Cholesterol Arterial Blood Glucose Arterial Blood Ionized Calcium Urine WBC (Auto) 04/10/20 04/10/20 04/10/20 11:27 18:11 23:24 WBC RBC Hgb Hct MCV MCH RDW Plt Count Lymph % (Auto) [place] % (Auto) Lymph # (Auto) [place] # (Auto) Seg Neutrophils % Seg Neuts % (Manual) Lymphocytes % (Manual) Monocytes % (Manual) Basophils % (Manual) Seg Neutrophils # Seg Neutrophils # Man Lymphocytes # (Manual) Monocytes # (Manual) Eosinophils # (Manual) Basophils # (Manual) PT INR D-Dimer ABG pH POC ABG pCO2 POC ABG pO2 ABG pO2 ABG HCO3 ABG O2 Saturation ABG Base Excess ABG Hemoglobin ABG Oxyhemoglobin ABG Potassium ABG Glucose Oxyhemoglobin Carboxyhemoglobin Sodium Potassium Chloride Carbon Dioxide BUN Creatinine Glucose POC Glucose 129 H 125 H 107 H Calcium Ferritin Total Bilirubin Alkaline Phosphatase Lactate Dehydrogenase Total Creatine Kinase CK-MB (CK-2) Rel Index Troponin T C-Reactive Protein Total Protein Albumin Prealbumin LDL Cholesterol Direct HDL Cholesterol Arterial Blood Glucose Arterial Blood Ionized Calcium Urine WBC (Auto) 04/11/20 04/11/20 04/11/20 05:28 11:46 23:49 WBC RBC Hgb Hct MCV MCH RDW Plt Count Lymph % (Auto) [place] % (Auto) Lymph # (Auto) [place] # (Auto) Seg Neutrophils % Seg Neuts % (Manual) Lymphocytes % (Manual) Monocytes % (Manual) Basophils % (Manual) Seg Neutrophils # Seg Neutrophils # Man Lymphocytes # (Manual) Monocytes # (Manual) Eosinophils # (Manual) Basophils # (Manual) PT INR D-Dimer ABG pH POC ABG pCO2 POC ABG pO2 ABG pO2 ABG HCO3 ABG O2 Saturation ABG Base Excess ABG Hemoglobin ABG Oxyhemoglobin ABG Potassium ABG Glucose Oxyhemoglobin Carboxyhemoglobin Sodium Potassium Chloride Carbon Dioxide BUN Creatinine Glucose POC Glucose 122 H 122 H 116 H Calcium Ferritin Total Bilirubin Alkaline Phosphatase Lactate Dehydrogenase Total Creatine Kinase CK-MB (CK-2) Rel Index Troponin T C-Reactive Protein Total Protein Albumin Prealbumin LDL Cholesterol Direct HDL Cholesterol Arterial Blood Glucose Arterial Blood Ionized Calcium Urine WBC (Auto) 04/12/20 04/12/20 04/12/20 09:07 09:07 11:39 WBC 13.1 H RBC 3.59 L Hgb 9.5 L Hct 29.8 L MCV 83 L MCH 26 L RDW 16.6 H Plt Count 591 H Lymph % (Auto) [place] % (Auto) Lymph # (Auto) [place] # (Auto) Seg Neutrophils % Seg Neuts % (Manual) 86.0 H Lymphocytes % (Manual) 7.0 L Monocytes % (Manual) Basophils % (Manual) Seg Neutrophils # Seg Neutrophils # Man 11.3 H Lymphocytes # (Manual) 0.9 L Monocytes # (Manual) Eosinophils # (Manual) Basophils # (Manual) PT INR D-Dimer ABG pH POC ABG pCO2 POC ABG pO2 ABG pO2 ABG HCO3 ABG O2 Saturation ABG Base Excess ABG Hemoglobin ABG Oxyhemoglobin ABG Potassium ABG Glucose Oxyhemoglobin Carboxyhemoglobin Sodium Potassium Chloride Carbon Dioxide 36 H BUN Creatinine < 0.2 L Glucose 132 H POC Glucose 136 H Calcium Ferritin Total Bilirubin Alkaline Phosphatase Lactate Dehydrogenase Total Creatine Kinase CK-MB (CK-2) Rel Index Troponin T C-Reactive Protein Total Protein Albumin 2.7 L Prealbumin LDL Cholesterol Direct HDL Cholesterol Arterial Blood Glucose Arterial Blood Ionized Calcium Urine WBC (Auto) 04/12/20 04/12/20 04/13/20 18:13 23:07 05:45 WBC RBC Hgb Hct MCV MCH RDW Plt Count Lymph % (Auto) [place] % (Auto) Lymph # (Auto) [place] # (Auto) Seg Neutrophils % Seg Neuts % (Manual) Lymphocytes % (Manual) Monocytes % (Manual) Basophils % (Manual) Seg Neutrophils # Seg Neutrophils # Man Lymphocytes # (Manual) Monocytes # (Manual) Eosinophils # (Manual) Basophils # (Manual) PT INR D-Dimer ABG pH POC ABG pCO2 POC ABG pO2 ABG pO2 ABG HCO3 ABG O2 Saturation ABG Base Excess ABG Hemoglobin ABG Oxyhemoglobin ABG Potassium ABG Glucose Oxyhemoglobin Carboxyhemoglobin Sodium Potassium Chloride Carbon Dioxide BUN Creatinine Glucose POC Glucose 107 H 106 H 125 H Calcium Ferritin Total Bilirubin Alkaline Phosphatase Lactate Dehydrogenase Total Creatine Kinase CK-MB (CK-2) Rel Index Troponin T C-Reactive Protein Total Protein Albumin Prealbumin LDL Cholesterol Direct HDL Cholesterol Arterial Blood Glucose Arterial Blood Ionized Calcium Urine WBC (Auto) 04/13/20 04/13/20 04/13/20 11:18 17:56 23:33 WBC RBC Hgb Hct MCV MCH RDW Plt Count Lymph % (Auto) [place] % (Auto) Lymph # (Auto) [place] # (Auto) Seg Neutrophils % Seg Neuts % (Manual) Lymphocytes % (Manual) Monocytes % (Manual) Basophils % (Manual) Seg Neutrophils # Seg Neutrophils # Man Lymphocytes # (Manual) Monocytes # (Manual) Eosinophils # (Manual) Basophils # (Manual) PT INR D-Dimer ABG pH POC ABG pCO2 POC ABG pO2 ABG pO2 ABG HCO3 ABG O2 Saturation ABG Base Excess ABG Hemoglobin ABG Oxyhemoglobin ABG Potassium ABG Glucose Oxyhemoglobin Carboxyhemoglobin Sodium Potassium Chloride Carbon Dioxide BUN Creatinine Glucose POC Glucose 133 H 110 H 114 H Calcium Ferritin Total Bilirubin Alkaline Phosphatase Lactate Dehydrogenase Total Creatine Kinase CK-MB (CK-2) Rel Index Troponin T C-Reactive Protein Total Protein Albumin Prealbumin LDL Cholesterol Direct HDL Cholesterol Arterial Blood Glucose Arterial Blood Ionized Calcium Urine WBC (Auto) 04/14/20 04/14/20 04/14/20 05:58 11:45 17:48 WBC RBC Hgb Hct MCV MCH RDW Plt Count Lymph % (Auto) [place] % (Auto) Lymph # (Auto) [place] # (Auto) Seg Neutrophils % Seg Neuts % (Manual) Lymphocytes % (Manual) Monocytes % (Manual) Basophils % (Manual) Seg Neutrophils # Seg Neutrophils # Man Lymphocytes # (Manual) Monocytes # (Manual) Eosinophils # (Manual) Basophils # (Manual) PT INR D-Dimer ABG pH POC ABG pCO2 POC ABG pO2 ABG pO2 ABG HCO3 ABG O2 Saturation ABG Base Excess ABG Hemoglobin ABG Oxyhemoglobin ABG Potassium ABG Glucose Oxyhemoglobin Carboxyhemoglobin Sodium Potassium Chloride Carbon Dioxide BUN Creatinine Glucose POC Glucose 115 H 122 H 124 H Calcium Ferritin Total Bilirubin Alkaline Phosphatase Lactate Dehydrogenase Total Creatine Kinase CK-MB (CK-2) Rel Index Troponin T C-Reactive Protein Total Protein Albumin Prealbumin LDL Cholesterol Direct HDL Cholesterol Arterial Blood Glucose Arterial Blood Ionized Calcium Urine WBC (Auto) 04/15/20 04/15/20 04/15/20 00:11 05:38 11:31 WBC RBC Hgb Hct MCV MCH RDW Plt Count Lymph % (Auto) [place] % (Auto) Lymph # (Auto) [place] # (Auto) Seg Neutrophils % Seg Neuts % (Manual) Lymphocytes % (Manual) Monocytes % (Manual) Basophils % (Manual) Seg Neutrophils # Seg Neutrophils # Man Lymphocytes # (Manual) Monocytes # (Manual) Eosinophils # (Manual) Basophils # (Manual) PT INR D-Dimer ABG pH POC ABG pCO2 POC ABG pO2 ABG pO2 ABG HCO3 ABG O2 Saturation ABG Base Excess ABG Hemoglobin ABG Oxyhemoglobin ABG Potassium ABG Glucose Oxyhemoglobin Carboxyhemoglobin Sodium Potassium Chloride Carbon Dioxide BUN Creatinine Glucose POC Glucose 120 H 109 H 123 H Calcium Ferritin Total Bilirubin Alkaline Phosphatase Lactate Dehydrogenase Total Creatine Kinase CK-MB (CK-2) Rel Index Troponin T C-Reactive Protein Total Protein Albumin Prealbumin LDL Cholesterol Direct HDL Cholesterol Arterial Blood Glucose Arterial Blood Ionized Calcium Urine WBC (Auto) 04/15/20 04/16/20 04/16/20 17:35 06:00 11:29 WBC RBC Hgb Hct MCV MCH RDW Plt Count Lymph % (Auto) [place] % (Auto) Lymph # (Auto) [place] # (Auto) Seg Neutrophils % Seg Neuts % (Manual) Lymphocytes % (Manual) Monocytes % (Manual) Basophils % (Manual) Seg Neutrophils # Seg Neutrophils # Man Lymphocytes # (Manual) Monocytes # (Manual) Eosinophils # (Manual) Basophils # (Manual) PT INR D-Dimer ABG pH POC ABG pCO2 POC ABG pO2 ABG pO2 ABG HCO3 ABG O2 Saturation ABG Base Excess ABG Hemoglobin ABG Oxyhemoglobin ABG Potassium ABG Glucose Oxyhemoglobin Carboxyhemoglobin Sodium Potassium Chloride Carbon Dioxide BUN Creatinine Glucose POC Glucose 111 H 142 H 108 H Calcium Ferritin Total Bilirubin Alkaline Phosphatase Lactate Dehydrogenase Total Creatine Kinase CK-MB (CK-2) Rel Index Troponin T C-Reactive Protein Total Protein Albumin Prealbumin LDL Cholesterol Direct HDL Cholesterol Arterial Blood Glucose Arterial Blood Ionized Calcium Urine WBC (Auto) 04/17/20 04/17/20 04/17/20 05:09 06:53 06:53 WBC 14.2 H RBC Hgb 10.1 L Hct 31.5 L MCV MCH 27 L RDW 17.2 H Plt Count 643 H Lymph % (Auto) [place] % (Auto) Lymph # (Auto) [place] # (Auto) Seg Neutrophils % Seg Neuts % (Manual) Lymphocytes % (Manual) Monocytes % (Manual) Basophils % (Manual) Seg Neutrophils # Seg Neutrophils # Man Lymphocytes # (Manual) Monocytes # (Manual) Eosinophils # (Manual) Basophils # (Manual) PT INR D-Dimer ABG pH POC ABG pCO2 POC ABG pO2 ABG pO2 ABG HCO3 ABG O2 Saturation ABG Base Excess ABG Hemoglobin ABG Oxyhemoglobin ABG Potassium ABG Glucose Oxyhemoglobin Carboxyhemoglobin Sodium Potassium Chloride 97.7 L Carbon Dioxide 38 H BUN Creatinine < 0.2 L Glucose 126 H POC Glucose 131 H Calcium Ferritin Total Bilirubin Alkaline Phosphatase Lactate Dehydrogenase Total Creatine Kinase CK-MB (CK-2) Rel Index Troponin T C-Reactive Protein Total Protein Albumin Prealbumin LDL Cholesterol Direct HDL Cholesterol Arterial Blood Glucose Arterial Blood Ionized Calcium Urine WBC (Auto) 04/17/20 04/18/20 04/18/20 11:21 00:23 04:01 WBC 15.3 H RBC Hgb 10.1 L Hct 31.9 L MCV 82 L MCH 26 L RDW 17.2 H Plt Count 665 H Lymph % (Auto) 12.9 L [place] % (Auto) Lymph # (Auto) [place] # (Auto) 1.1 H Seg Neutrophils % 78.0 H Seg Neuts % (Manual) Lymphocytes % (Manual) Monocytes % (Manual) Basophils % (Manual) Seg Neutrophils # 11.9 H Seg Neutrophils # Man Lymphocytes # (Manual) Monocytes # (Manual) Eosinophils # (Manual) Basophils # (Manual) PT INR D-Dimer ABG pH POC ABG pCO2 POC ABG pO2 ABG pO2 ABG HCO3 ABG O2 Saturation ABG Base Excess ABG Hemoglobin ABG Oxyhemoglobin ABG Potassium ABG Glucose Oxyhemoglobin Carboxyhemoglobin Sodium Potassium Chloride Carbon Dioxide BUN Creatinine Glucose POC Glucose 140 H 125 H Calcium Ferritin Total Bilirubin Alkaline Phosphatase Lactate Dehydrogenase Total Creatine Kinase CK-MB (CK-2) Rel Index Troponin T C-Reactive Protein Total Protein Albumin Prealbumin LDL Cholesterol Direct HDL Cholesterol Arterial Blood Glucose Arterial Blood Ionized Calcium Urine WBC (Auto) 04/18/20 04/18/20 04/18/20 04:01 11:29 17:30 WBC RBC Hgb Hct MCV MCH RDW Plt Count Lymph % (Auto) [place] % (Auto) Lymph # (Auto) [place] # (Auto) Seg Neutrophils % Seg Neuts % (Manual) Lymphocytes % (Manual) Monocytes % (Manual) Basophils % (Manual) Seg Neutrophils # Seg Neutrophils # Man Lymphocytes # (Manual) Monocytes # (Manual) Eosinophils # (Manual) Basophils # (Manual) PT INR D-Dimer ABG pH POC ABG pCO2 POC ABG pO2 ABG pO2 ABG HCO3 ABG O2 Saturation ABG Base Excess ABG Hemoglobin ABG Oxyhemoglobin ABG Potassium ABG Glucose Oxyhemoglobin Carboxyhemoglobin Sodium Potassium Chloride 97.0 L Carbon Dioxide 38 H BUN Creatinine < 0.2 L Glucose 117 H POC Glucose 136 H 107 H Calcium Ferritin Total Bilirubin Alkaline Phosphatase Lactate Dehydrogenase Total Creatine Kinase CK-MB (CK-2) Rel Index Troponin T C-Reactive Protein Total Protein Albumin Prealbumin LDL Cholesterol Direct HDL Cholesterol Arterial Blood Glucose Arterial Blood Ionized Calcium Urine WBC (Auto) 04/18/20 04/19/20 04/19/20 23:19 06:51 06:51 WBC 12.2 H RBC Hgb 9.8 L Hct 31.1 L MCV 82 L MCH 26 L RDW 17.2 H Plt Count 549 H Lymph % (Auto) 6.5 L [place] % (Auto) Lymph # (Auto) 0.8 L [place] # (Auto) Seg Neutrophils % 86.7 H Seg Neuts % (Manual) Lymphocytes % (Manual) Monocytes % (Manual) Basophils % (Manual) Seg Neutrophils # 10.6 H Seg Neutrophils # Man Lymphocytes # (Manual) Monocytes # (Manual) Eosinophils # (Manual) Basophils # (Manual) PT INR D-Dimer ABG pH POC ABG pCO2 POC ABG pO2 ABG pO2 ABG HCO3 ABG O2 Saturation ABG Base Excess ABG Hemoglobin ABG Oxyhemoglobin ABG Potassium ABG Glucose Oxyhemoglobin Carboxyhemoglobin Sodium Potassium Chloride 97.8 L Carbon Dioxide 38 H BUN Creatinine < 0.2 L Glucose 123 H POC Glucose 127 H Calcium Ferritin Total Bilirubin Alkaline Phosphatase Lactate Dehydrogenase Total Creatine Kinase CK-MB (CK-2) Rel Index Troponin T C-Reactive Protein Total Protein Albumin Prealbumin LDL Cholesterol Direct HDL Cholesterol Arterial Blood Glucose Arterial Blood Ionized Calcium Urine WBC (Auto) 04/19/20 04/19/20 04/20/20 13:41 18:33 05:56 WBC RBC Hgb Hct MCV MCH RDW Plt Count Lymph % (Auto) [place] % (Auto) Lymph # (Auto) [place] # (Auto) Seg Neutrophils % Seg Neuts % (Manual) Lymphocytes % (Manual) Monocytes % (Manual) Basophils % (Manual) Seg Neutrophils # Seg Neutrophils # Man Lymphocytes # (Manual) Monocytes # (Manual) Eosinophils # (Manual) Basophils # (Manual) PT INR D-Dimer ABG pH POC ABG pCO2 POC ABG pO2 ABG pO2 ABG HCO3 ABG O2 Saturation ABG Base Excess ABG Hemoglobin ABG Oxyhemoglobin ABG Potassium ABG Glucose Oxyhemoglobin Carboxyhemoglobin Sodium Potassium Chloride Carbon Dioxide BUN Creatinine Glucose POC Glucose 116 H 124 H 130 H Calcium Ferritin Total Bilirubin Alkaline Phosphatase Lactate Dehydrogenase Total Creatine Kinase CK-MB (CK-2) Rel Index Troponin T C-Reactive Protein Total Protein Albumin Prealbumin LDL Cholesterol Direct HDL Cholesterol Arterial Blood Glucose Arterial Blood Ionized Calcium Urine WBC (Auto) 04/20/20 04/20/20 04/20/20 06:28 06:28 11:46 WBC RBC Hgb 10.2 L Hct 31.5 L MCV 82 L MCH 27 L RDW 17.1 H Plt Count 546 H Lymph % (Auto) 10.0 L [place] % (Auto) 9.8 H Lymph # (Auto) 1.1 L [place] # (Auto) 1.1 H Seg Neutrophils % 78.4 H Seg Neuts % (Manual) Lymphocytes % (Manual) Monocytes % (Manual) Basophils % (Manual) Seg Neutrophils # 8.5 H Seg Neutrophils # Man Lymphocytes # (Manual) Monocytes # (Manual) Eosinophils # (Manual) Basophils # (Manual) PT INR D-Dimer ABG pH POC ABG pCO2 POC ABG pO2 ABG pO2 ABG HCO3 ABG O2 Saturation ABG Base Excess ABG Hemoglobin ABG Oxyhemoglobin ABG Potassium ABG Glucose Oxyhemoglobin Carboxyhemoglobin Sodium Potassium Chloride 97.0 L Carbon Dioxide 38 H BUN Creatinine < 0.2 L Glucose 138 H POC Glucose 130 H Calcium Ferritin Total Bilirubin Alkaline Phosphatase Lactate Dehydrogenase Total Creatine Kinase CK-MB (CK-2) Rel Index Troponin T C-Reactive Protein Total Protein Albumin Prealbumin LDL Cholesterol Direct HDL Cholesterol Arterial Blood Glucose Arterial Blood Ionized Calcium Urine WBC (Auto) 04/20/20 04/21/20 04/21/20 23:31 05:55 05:55 WBC RBC Hgb 10.0 L Hct 31.1 L MCV 82 L MCH 26 L RDW 17.0 H Plt Count 535 H Lymph % (Auto) [place] % (Auto) 9.2 H Lymph # (Auto) 1.1 L [place] # (Auto) Seg Neutrophils % 75.4 H Seg Neuts % (Manual) Lymphocytes % (Manual) Monocytes % (Manual) Basophils % (Manual) Seg Neutrophils # Seg Neutrophils # Man Lymphocytes # (Manual) Monocytes # (Manual) Eosinophils # (Manual) Basophils # (Manual) PT INR D-Dimer ABG pH POC ABG pCO2 POC ABG pO2 ABG pO2 ABG HCO3 ABG O2 Saturation ABG Base Excess ABG Hemoglobin ABG Oxyhemoglobin ABG Potassium ABG Glucose Oxyhemoglobin Carboxyhemoglobin Sodium Potassium Chloride 95.0 L Carbon Dioxide 34 H BUN Creatinine < 0.2 L Glucose 125 H POC Glucose 116 H Calcium Ferritin Total Bilirubin Alkaline Phosphatase Lactate Dehydrogenase Total Creatine Kinase CK-MB (CK-2) Rel Index Troponin T C-Reactive Protein Total Protein Albumin Prealbumin LDL Cholesterol Direct HDL Cholesterol Arterial Blood Glucose Arterial Blood Ionized Calcium Urine WBC (Auto) 04/22/20 04/22/20 04/22/20 00:01 07:45 07:45 WBC RBC Hgb 10.0 L Hct 30.7 L MCV 81 L MCH 27 L RDW 17.1 H Plt Count 490 H Lymph % (Auto) [place] % (Auto) Lymph # (Auto) [place] # (Auto) Seg Neutrophils % Seg Neuts % (Manual) 75.0 H Lymphocytes % (Manual) 11.0 L Monocytes % (Manual) 9.0 H Basophils % (Manual) Seg Neutrophils # Seg Neutrophils # Man Lymphocytes # (Manual) 0.8 L Monocytes # (Manual) Eosinophils # (Manual) Basophils # (Manual) PT INR D-Dimer ABG pH POC ABG pCO2 POC ABG pO2 ABG pO2 ABG HCO3 ABG O2 Saturation ABG Base Excess ABG Hemoglobin ABG Oxyhemoglobin ABG Potassium ABG Glucose Oxyhemoglobin Carboxyhemoglobin Sodium Potassium Chloride 96.3 L Carbon Dioxide 40 H BUN Creatinine < 0.2 L Glucose 109 H POC Glucose 110 H Calcium Ferritin Total Bilirubin Alkaline Phosphatase Lactate Dehydrogenase Total Creatine Kinase CK-MB (CK-2) Rel Index Troponin T C-Reactive Protein Total Protein Albumin Prealbumin LDL Cholesterol Direct HDL Cholesterol Arterial Blood Glucose Arterial Blood Ionized Calcium Urine WBC (Auto) 04/23/20 04/23/20 04/23/20 04:28 04:28 04:28 WBC RBC 3.64 L Hgb 9.7 L Hct 29.4 L MCV 81 L MCH 27 L RDW 17.2 H Plt Count 527 H Lymph % (Auto) [place] % (Auto) 8.9 H Lymph # (Auto) [place] # (Auto) Seg Neutrophils % Seg Neuts % (Manual) Lymphocytes % (Manual) Monocytes % (Manual) Basophils % (Manual) Seg Neutrophils # Seg Neutrophils # Man Lymphocytes # (Manual) Monocytes # (Manual) Eosinophils # (Manual) Basophils # (Manual) PT INR D-Dimer ABG pH POC ABG pCO2 POC ABG pO2 ABG pO2 ABG HCO3 ABG O2 Saturation ABG Base Excess ABG Hemoglobin ABG Oxyhemoglobin ABG Potassium ABG Glucose Oxyhemoglobin Carboxyhemoglobin Sodium Potassium Chloride 96.4 L Carbon Dioxide 32 H D BUN Creatinine < 0.2 L Glucose 134 H POC Glucose Calcium Ferritin Total Bilirubin Alkaline Phosphatase Lactate Dehydrogenase Total Creatine Kinase CK-MB (CK-2) Rel Index Troponin T 0.151 H* C-Reactive Protein Total Protein Albumin Prealbumin LDL Cholesterol Direct HDL Cholesterol 29 L Arterial Blood Glucose Arterial Blood Ionized Calcium Urine WBC (Auto) 04/23/20 04/23/20 04/24/20 06:03 23:41 05:28 WBC RBC 3.56 L Hgb 9.5 L Hct 28.9 L MCV 81 L MCH 27 L RDW 17.4 H Plt Count 462 H Lymph % (Auto) [place] % (Auto) Lymph # (Auto) [place] # (Auto) Seg Neutrophils % Seg Neuts % (Manual) 80.0 H Lymphocytes % (Manual) Monocytes % (Manual) Basophils % (Manual) Seg Neutrophils # Seg Neutrophils # Man Lymphocytes # (Manual) Monocytes # (Manual) Eosinophils # (Manual) Basophils # (Manual) PT INR D-Dimer ABG pH POC ABG pCO2 POC ABG pO2 ABG pO2 ABG HCO3 ABG O2 Saturation ABG Base Excess ABG Hemoglobin ABG Oxyhemoglobin ABG Potassium ABG Glucose Oxyhemoglobin Carboxyhemoglobin Sodium Potassium Chloride Carbon Dioxide BUN Creatinine Glucose POC Glucose 132 H 117 H Calcium Ferritin Total Bilirubin Alkaline Phosphatase Lactate Dehydrogenase Total Creatine Kinase CK-MB (CK-2) Rel Index Troponin T C-Reactive Protein Total Protein Albumin Prealbumin LDL Cholesterol Direct HDL Cholesterol Arterial Blood Glucose Arterial Blood Ionized Calcium Urine WBC (Auto) 04/24/20 04/24/20 04/24/20 05:28 05:28 05:33 WBC RBC Hgb Hct MCV MCH RDW Plt Count Lymph % (Auto) [place] % (Auto) Lymph # (Auto) [place] # (Auto) Seg Neutrophils % Seg Neuts % (Manual) Lymphocytes % (Manual) Monocytes % (Manual) Basophils % (Manual) Seg Neutrophils # Seg Neutrophils # Man Lymphocytes # (Manual) Monocytes # (Manual) Eosinophils # (Manual) Basophils # (Manual) PT INR D-Dimer ABG pH POC ABG pCO2 POC ABG pO2 ABG pO2 ABG HCO3 ABG O2 Saturation ABG Base Excess ABG Hemoglobin ABG Oxyhemoglobin ABG Potassium ABG Glucose Oxyhemoglobin Carboxyhemoglobin Sodium Potassium Chloride 96.1 L Carbon Dioxide 40 H D BUN Creatinine < 0.2 L Glucose 115 H POC Glucose 109 H Calcium Ferritin Total Bilirubin Alkaline Phosphatase Lactate Dehydrogenase Total Creatine Kinase CK-MB (CK-2) Rel Index Troponin T 0.181 H* C-Reactive Protein Total Protein Albumin Prealbumin LDL Cholesterol Direct HDL Cholesterol Arterial Blood Glucose Arterial Blood Ionized Calcium Urine WBC (Auto) 04/24/20 04/24/20 04/25/20 11:17 18:23 00:12 WBC RBC Hgb Hct MCV MCH RDW Plt Count Lymph % (Auto) [place] % (Auto) Lymph # (Auto) [place] # (Auto) Seg Neutrophils % Seg Neuts % (Manual) Lymphocytes % (Manual) Monocytes % (Manual) Basophils % (Manual) Seg Neutrophils # Seg Neutrophils # Man Lymphocytes # (Manual) Monocytes # (Manual) Eosinophils # (Manual) Basophils # (Manual) PT INR D-Dimer ABG pH POC ABG pCO2 POC ABG pO2 ABG pO2 ABG HCO3 ABG O2 Saturation ABG Base Excess ABG Hemoglobin ABG Oxyhemoglobin ABG Potassium ABG Glucose Oxyhemoglobin Carboxyhemoglobin Sodium Potassium Chloride Carbon Dioxide BUN Creatinine Glucose POC Glucose 117 H 109 H 113 H Calcium Ferritin Total Bilirubin Alkaline Phosphatase Lactate Dehydrogenase Total Creatine Kinase CK-MB (CK-2) Rel Index Troponin T C-Reactive Protein Total Protein Albumin Prealbumin LDL Cholesterol Direct HDL Cholesterol Arterial Blood Glucose Arterial Blood Ionized Calcium Urine WBC (Auto) 04/25/20 04/25/20 04/25/20 06:34 06:34 11:28 WBC 11.7 H RBC Hgb 10.0 L Hct 31.7 L MCV 82 L MCH 26 L RDW 17.5 H Plt Count 564 H Lymph % (Auto) [place] % (Auto) Lymph # (Auto) [place] # (Auto) Seg Neutrophils % Seg Neuts % (Manual) 78.0 H Lymphocytes % (Manual) 10.0 L Monocytes % (Manual) 9.0 H Basophils % (Manual) Seg Neutrophils # Seg Neutrophils # Man 9.1 H Lymphocytes # (Manual) Monocytes # (Manual) 1.1 H Eosinophils # (Manual) Basophils # (Manual) PT INR D-Dimer ABG pH POC ABG pCO2 POC ABG pO2 ABG pO2 ABG HCO3 ABG O2 Saturation ABG Base Excess ABG Hemoglobin ABG Oxyhemoglobin ABG Potassium ABG Glucose Oxyhemoglobin Carboxyhemoglobin Sodium Potassium Chloride Carbon Dioxide 39 H BUN Creatinine < 0.2 L Glucose 103 H POC Glucose 112 H Calcium Ferritin Total Bilirubin Alkaline Phosphatase Lactate Dehydrogenase Total Creatine Kinase CK-MB (CK-2) Rel Index Troponin T C-Reactive Protein Total Protein Albumin Prealbumin LDL Cholesterol Direct HDL Cholesterol Arterial Blood Glucose Arterial Blood Ionized Calcium Urine WBC (Auto) 04/27/20 04/27/20 04/27/20 11:48 17:08 23:31 WBC RBC Hgb Hct MCV MCH RDW Plt Count Lymph % (Auto) [place] % (Auto) Lymph # (Auto) [place] # (Auto) Seg Neutrophils % Seg Neuts % (Manual) Lymphocytes % (Manual) Monocytes % (Manual) Basophils % (Manual) Seg Neutrophils # Seg Neutrophils # Man Lymphocytes # (Manual) Monocytes # (Manual) Eosinophils # (Manual) Basophils # (Manual) PT INR D-Dimer ABG pH POC ABG pCO2 POC ABG pO2 ABG pO2 ABG HCO3 ABG O2 Saturation ABG Base Excess ABG Hemoglobin ABG Oxyhemoglobin ABG Potassium ABG Glucose Oxyhemoglobin Carboxyhemoglobin Sodium Potassium Chloride Carbon Dioxide BUN Creatinine Glucose POC Glucose 124 H 118 H 122 H Calcium Ferritin Total Bilirubin Alkaline Phosphatase Lactate Dehydrogenase Total Creatine Kinase CK-MB (CK-2) Rel Index Troponin T C-Reactive Protein Total Protein Albumin Prealbumin LDL Cholesterol Direct HDL Cholesterol Arterial Blood Glucose Arterial Blood Ionized Calcium Urine WBC (Auto) 04/28/20 04/29/20 04/29/20 05:42 00:14 05:30 WBC RBC Hgb Hct MCV MCH RDW Plt Count Lymph % (Auto) [place] % (Auto) Lymph # (Auto) [place] # (Auto) Seg Neutrophils % Seg Neuts % (Manual) Lymphocytes % (Manual) Monocytes % (Manual) Basophils % (Manual) Seg Neutrophils # Seg Neutrophils # Man Lymphocytes # (Manual) Monocytes # (Manual) Eosinophils # (Manual) Basophils # (Manual) PT INR D-Dimer ABG pH POC ABG pCO2 POC ABG pO2 ABG pO2 ABG HCO3 ABG O2 Saturation ABG Base Excess ABG Hemoglobin ABG Oxyhemoglobin ABG Potassium ABG Glucose Oxyhemoglobin Carboxyhemoglobin Sodium Potassium Chloride Carbon Dioxide BUN Creatinine Glucose POC Glucose 122 H 115 H 123 H Calcium Ferritin Total Bilirubin Alkaline Phosphatase Lactate Dehydrogenase Total Creatine Kinase CK-MB (CK-2) Rel Index Troponin T C-Reactive Protein Total Protein Albumin Prealbumin LDL Cholesterol Direct HDL Cholesterol Arterial Blood Glucose Arterial Blood Ionized Calcium Urine WBC (Auto) 04/30/20 05/01/20 05/01/20 00:29 05:39 12:30 WBC RBC Hgb Hct MCV MCH RDW Plt Count Lymph % (Auto) [place] % (Auto) Lymph # (Auto) [place] # (Auto) Seg Neutrophils % Seg Neuts % (Manual) Lymphocytes % (Manual) Monocytes % (Manual) Basophils % (Manual) Seg Neutrophils # Seg Neutrophils # Man Lymphocytes # (Manual) Monocytes # (Manual) Eosinophils # (Manual) Basophils # (Manual) PT INR D-Dimer ABG pH POC ABG pCO2 POC ABG pO2 ABG pO2 ABG HCO3 ABG O2 Saturation ABG Base Excess ABG Hemoglobin ABG Oxyhemoglobin ABG Potassium ABG Glucose Oxyhemoglobin Carboxyhemoglobin Sodium Potassium Chloride Carbon Dioxide BUN Creatinine Glucose POC Glucose 106 H 109 H 108 H Calcium Ferritin Total Bilirubin Alkaline Phosphatase Lactate Dehydrogenase Total Creatine Kinase CK-MB (CK-2) Rel Index Troponin T C-Reactive Protein Total Protein Albumin Prealbumin LDL Cholesterol Direct HDL Cholesterol Arterial Blood Glucose Arterial Blood Ionized Calcium Urine WBC (Auto) 05/01/20 23:35 WBC RBC Hgb Hct MCV MCH RDW Plt Count Lymph % (Auto) [place] % (Auto) Lymph # (Auto) [place] # (Auto) Seg Neutrophils % Seg Neuts % (Manual) Lymphocytes % (Manual) Monocytes % (Manual) Basophils % (Manual) Seg Neutrophils # Seg Neutrophils # Man Lymphocytes # (Manual) Monocytes # (Manual) Eosinophils # (Manual) Basophils # (Manual) PT INR D-Dimer ABG pH POC ABG pCO2 POC ABG pO2 ABG pO2 ABG HCO3 ABG O2 Saturation ABG Base Excess ABG Hemoglobin ABG Oxyhemoglobin ABG Potassium ABG Glucose Oxyhemoglobin Carboxyhemoglobin Sodium Potassium Chloride Carbon Dioxide BUN Creatinine Glucose POC Glucose 116 H Calcium Ferritin Total Bilirubin Alkaline Phosphatase Lactate Dehydrogenase Total Creatine Kinase CK-MB (CK-2) Rel Index Troponin T C-Reactive Protein Total Protein Albumin Prealbumin LDL Cholesterol Direct HDL Cholesterol Arterial Blood Glucose Arterial Blood Ionized Calcium Urine WBC (Auto) Chest x-ray: report reviewed, image reviewed Additional Studies: CHEST 1 VIEW 05/02/2020 11:44 AM INDICATION / CLINICAL INFORMATION: Follow up on pulmonary infiltrate or atelectasis. COMPARISON: 04/15/2020 FINDINGS: SUPPORT DEVICES: Stable, satisfactory device positioning. HEART / MEDIASTINUM: Stable. LUNGS / PLEURA: Interval worsening of previously noted right lung base opacity. There is effacement of the right costophrenic angle. Left lung base opacity is relatively unchanged. No pneumothorax. ADDITIONAL FINDINGS: No significant additional findings. IMPRESSION: 1. Interval worsening of right lung base opacity now appears to be pleural parenchymal. This may be a worsened infectious process or development of right-sided pleural effusion and worsened right lung base atelectasis. 2. Left lung base opacity is stable. 3. Tracheostomy in stable position. Allied health notes reviewed: nursing
--- NOTE | 2020-05-02 14:18 | XRay Report ---
CHEST 1 VIEW 05/02/2020 11:44 AM INDICATION / CLINICAL INFORMATION: Follow up on pulmonary infiltrate or atelectasis. COMPARISON: 04/15/2020 FINDINGS: SUPPORT DEVICES: Stable, satisfactory device positioning. HEART / MEDIASTINUM: Stable. LUNGS / PLEURA: Interval worsening of previously noted right lung base opacity. There is effacement o f the right costophrenic angle. Left lung base opacity is relatively unchanged. No pneumothorax. ADDITIONAL FINDINGS: No significant additional findings. IMPRESSION: 1. Interval worsening of right lung base opacity now appears to be pleural parenchymal. This may be a worsened infectious process or development of right-sided pleural effusion and worsened right lung b ase atelectasis. 2. Left lung base opacity is stable. 3. Tracheostomy in stable position. Signer Name: Baldemar Ureña MD Signed: 05/02/2020 2:13 PM Workstation Name: [id number]
[2020-05-02] MEDS: traMADol 50 MG TAB PO PRN (15:18)
--- NOTE | 2020-05-02 15:52 | Progress Note ---
Assessment and Plan --Acute hypoxic hypercapnic respiratory failure; Intubated on mechanical ventilation. Etiology secondary to sepsis, ALS, multifocal pneumonia (Covid negative). S/p trach placement 03/07/20 --Status post cardiac arrest on 02/25, cardiac hernandez now stable --Dysphagia, status post PEG placement for tube feeding --ALS; Chronic Continue to provide supportive care --Elevated D-dimers; CTA chest, lower extremity venous Doppler both are negative Lovenox for DVT prophylaxis --Bilateral pneumonia; probably community-acquired Completed treatment ID recommendations appreciated --Sepsis secondary to pneumonia s/p empiric antibiotic --Elevated troponin; Serial cardiac enzymes, serial EKGs Echocardiogram, cardiology consult if needed --Hypernatremia Trend sodium Free water via feeding tube --Abdominal distention due to bladder outlet obstruction, resolved CT abdomen showed bladder outlet obstruction, urology consulted s/p drake placement by urology on 03/09 --Hypotension possibly from septic shock and bladder outlet obstruction improved following placing drake --Hypernatremia due to hypovolumia, resolved free water with TF --Constipation; Patient already received Dulcolax suppository and Colace Received milk of magnesia, with relief --DVT prophylaxis; Lovenox Brief history: 59-year-old male patient with significant past medical history of ALS, presented to ED with worsening 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 Patient was on a trilogy machine for breathing 18/11. EMS arrived, patient had O2 sats in the 80s. EMS attempted to place patient on their CPAP machine, however patient did not tolerate. Patient was admitted to the ICU with diagnosis of acute hypoxic respiratory failure and placed on BiPAP. Patient initially tolerated but later deteriorated with respiratory status. CTA chest showed no PE but significant for bilateral pneumonia. Doppler ultrasound also negative for DVT. COVID-19 test ordered and negative. Due to persistent hypoxia and asystolic/V. fib cardiac arrest, patient was intubated on 02/26/2020 at 1500. Patient now on mechanical ventilation in the ICU s/p trach placement and now unable to wean off from the mechanical ventilation. Patient now status post PEG placement for tube feeding. Patient most likely need long-term placement -LTAC versus SNF Daily course: 02/25/2020. CTA of the chest reveals no PE but does illustrate the bilateral pneumonia. Doppler ultrasound also negative for DVT. Blood cultures are pe nding. Await COVID-19 testing. Patient currently requiring BiPAP IPAP 24/EPAP 6 with FiO2 of 25%. Continue O2 and BiPAP as clinically indicated. ID and pulmonary consulted. 02/26/2020. Blood cultures are negative x48 hours and Covid testing negative as well. Continue antibiotics per ID recommendations for community-acquired bilateral pneumonia. Cardiology consultation for elevated troponin. Check echocardiogram. 02/27/2020. Events of yesterday noted with asystole following V. fib arrest. Patient currently on AC mode rate 20, tidal volume 400, FiO2 50% and a PEEP of 6. Follow-up echocardiogram for elevated troponin. Cardiology suspects NSTEMI Type 2 in the setting of acute resp failure. Chest CTA and BLE Dopplers neg. we will discontinue Decadron given the Covid PCR is negative. 02/28/2020. I spoke with the sister Felisa Eli who is the power of environmental attorney regarding advanced directives and she instructed me that she would like to continue with aggressive care at this time. I informed her of the guarded prognosis and high mortality/morbidity and she voiced understanding. Patient currently with AC mode ventilation rate 18, tidal volume 400, FiO2 40% and a PEEP of 6. Continue antibiotics for pneumonia. ID previously consulted. Also consult neurology with regards to ALS. 02/29/2020; patient is intubated and on CPAP patient is alert and oriented. Patient has ALS. Dr. Álvarez spoke with his sister and she wants aggressive care. Continue antibiotics for pneumonia. Neurology consulted for ALS. Prognosis poor 03/01/2020; patient is intubated and on CPAP, patient is alert and oriented. I spoke with his 2 sisters about the management plan. 03/02/2020; patient is intubated and on CPAP. Patient was alert and oriented. I spoke with Dr. mohr and he thinks patient may need mechanical ventilation, likely his disease progressed. Dr. Flowers did debridement this morning. 03/03/2020; patient is intubated and on CPAP, patient was on trilogy and BiPAP at home. Patient has ALS. on spontaneous breathing trial. Patient is alert and oriented but quadriplegic. Patient has severe bilateral pneumonia and is on cefepime and Vanco, ID is following. Patient has sacral decubitus ulcer and debridement was done by Dr. Flowers and there is no osteomyelitis. 03/05. Patient still on broad-spectrum antibiotics. Status post sacral decubitus ulcer debridements-no osteomyelitis. Patient is on AC 25/400/30% PEEP 5. No blood gas results today. 03/06. Plan for tracheostomy by surgery. Still remains intubated. Labs reviewed-sodium 150. Started on free water 200 every 8hr. trend sodium. 03/07: s/p trach placement today, patient placed back on mechanical ventilation with trach. Plan to resume tube feeding with NG tube. Continue to monitor vitals, monitor BMP. 03/08: Patient noted to have distended abdomen with low urinary output. Obtain bladder scan rule out urine retention, UA and urine culture, continue to follow clinically. 03/09: Patient noted to have low blood pressure with SBP as low as 70s. Ordered for 500 mils normal saline bolus. CT abdomen showed bladder outlet obstruction, urology consulted. 03/10: placed on drake by urology o/n, improved urine outpt. cont to monitor BMP. resuded TF - cont free water with TF. wean off from vent as tolerated. 03/11: Vitals stable. cont TF, wean off from vent as tolerated. start on 1/2 NS for hypernatremia - follow BMP 03/12: wean off vent as tolerated, plan for speech eval, cont Tf for now, cont iv fluid 03/13: unable to wean off from vent, unable to do speech therapy eval. will need PEG tube, cont supportive care for now, cont NG tube feeding 03/14: consulted GI for PEg placemnet, cont supportive care. remains on vent at night 03/15: Discussed with GI, plan for PEG tube placement possibly tomorrow. Continue supportive care and wean off from vent as tolerated. Hold Lovenox dose tonight. 03/16: family didnot consent for PEG placement yesterday. I spoke with the megan rodriguez today and she is now agreeable for PEG tube. I explained the necessity of the procedure with RN to the patient also and he nodded started on tube feeding, for the procedure. will cont supportive care. planned for PEG tube placement tomorrow. 03/17: s/p PEG placement today, patient tolerated well, cont supportive care 03/18: Started on tube feeding with new PEG tube, continue to wean off vent as tolerated 03/19: cont to monitor with supportive care, wean off vent as tolerated 03/20: Continue to wean off vent as tolerated -but failing weaning trial. Still requiring vent support at night. Currently on PEG tube for tube feed. 03/21. Pt with PSV trials with FiO@ 30%, PEEP 6, PS 10. Currently on PEG tube for tube feed. 03/22/2020. Continue PSV trials per pulmonary. Continue bronchodilators. Patient tolerating tube feedings. Continue Robinul for secretion control. 03/23/2020. Continue PSV trials per pulmonary. Continue bronchodilators. Continue Scopolamine and Robinul for secretion control. Trach care/airway management. Mobility protocols for pressure ulcer prophylaxis. LTAC evaluation per case management 03/24/2020. Continue PSV trials with current settings pressure support 10, PEEP 6 and FiO2 30%. Continue bronchodilators/nebulizer. Continue Scopolamine and Robinul for secretion control. Trach care/airway management. Mobility protocols for pressure ulcer prophylaxis. LTAC evaluation per case management 03/25/2020. Pulmonary to proceed with T-piece trials today. Continue bronchodilators/nebulizer. Continue Scopolamine and Robinul for secretion control. Trach care/airway management. Mobility protocols for pressure ulcer prophylaxis. 03/26/2020. Patient currently with PSV 10/6 at FiO2 of 30%. Continue weaning and T-piece trials per protocol. Continue bronchodilators/nebulizer. Continue Scopolamine and Robinul for secretion control. Trach care/airway management. Mobility protocols for pressure ulcer prophylaxis. Continue tube feeding with aspiration precautions. 03/27/2020. Patient currently with PSV 10/6 at FiO2 of 30%. Continue weaning and T-piece trials per protocol. Continue bronchodilators/nebulizer. Continue Scopolamine and Robinul for secretion control. Trach care/airway management. Mobility protocols for pressure ulcer prophylaxis. Continue tube feeding with aspiration precautions. 03/28. Had temp 100.7F. He has been off antibiotics. Will send blood culture, ua, urine culture and chest xray. Had chest pain overnight and trop was elevated as well. Cardiology to evaluate 03/29. Has back pain due to position. He mentions his chest pain is positional. Has no other complaints. Still on mechanical ventilation 03/30. No chest pain today. Labs reviewed. Discussed chest pain with cardiology and team advised no further work up at this time. Can follow up with cardiology in the office after hospitalization 03/31. Lidocaine patch for lower back pain. 04/01. Discharge planning underway. CM notes reviewed. Discussed with daughter 04/02. CM trying to arrange discharge. Continue PSV trials. Discussed with patients significant other 04/04/2020; CM is working for discharge arrangement. Continue PSV trials. 04/05/2020; patient was seen and evaluated this morning and no change from baseline. Continue with PSV trials. Follow with photoengraver apprentice for discharge planning. 04/06/2020;patient was seen and evaluated this morning and no change from baseline. Continue with PSV trials. Follow with photoengraver apprentice for discharge planning. 04/07/2020; patient was seen and evaluated this morning and no change from baseline. Continue with PSV trials. Follow with photoengraver apprentice for discharge planning. 04/08/2020; patient is vent dependent. Discharge is per photoengraver apprentice. 04/09/2020 patient is vent dependent, possible LTAC placement 04/10/2020; tracheostomy on vent, vent dependent pending LTAC placement 04/11/2020; clinically no change, tracheostomy on ventilatory support, wean as tolerated, awaiting placement 04/12/2020; remains on ventilatory support, unable to wean, patient wants to see a speech therapist for sound box However we cannot try that as long as he is on ventilatory support, once he is weaned off vent We will consult speech therapist, plan of care reviewed with the patient and his nurse 04/14/2020; clinically no change, on ventilatory support, complains of constipation, milk of magnesia Closely monitor the patient and adjust the management as needed 04/15/2020; patient has some oral thrush on the tongue, will give Magic mouthwash/nystatin swish and spit Wean off vent as tolerated 04/16 patient is alert and oriented, unable to comprehend what he is trying to tell but appears to complain of some pain, no acute events overnight, all interdisciplinary notes reviewed. Waiting for LTAC versus [facility] facility placement 04/17/2020. Continue supportive care with mechanical ventilation. Patient currently on AC mode rate 10, tidal volume 400 FiO2 30% with a PEEP of 6. Discharge planning per case management. 04/18/2020. Patient remains on mechanical ventilation AC mode rate 10, tidal volume 400, FiO2 30% and PEEP of 6. Continue spontaneous breathing trials as tolerated. Previously, patient was considered for discharge home with skilled staff providing care for 12 hours 7 days/week. Continue discussed with case management discharge planning. 04/19/20. Patient remains on mechanical ventilation AC mode rate 10, tidal volume 400, FiO2 30% and PEEP of 6. Continue spontaneous breathing trials as tolerated. 04/20/2020. Patient remains on mechanical ventilation AC mode rate 10, tidal volume 400, FiO2 30% and PEEP of 6. Continue spontaneous breathing trials as tolerated. 04/21/2020. Patient remains on mechanical ventilation AC mode rate 10, tidal volume 400, FiO2 30% and PEEP of 6. Continue tracheostomy care, secretion control and airway management. Continue spontaneous breathing trials as tolerated. 04/22/2020. Patient remains on mechanical ventilation AC mode rate 10, tidal volume 400, FiO2 30% and PEEP of 6. Continue tracheostomy care, secretion control and airway management. Continue spontaneous breathing trials as tolera milana. 04/23/2020. Patient on mechanical ventilation AC mode rate 18, tidal volume 450, FiO2 30% and PEEP of 6. Continue tracheostomy care, secretion control and airway management. Continue spontaneous breathing trials as tolerated. Continue Robinul and scopolamine for secretions. Continue baclofen. 04/24/2020. Patient remains on AC mode ventilation rate 10, tidal volume 400, FiO2 30% and PEEP of 6. Continue tracheostomy care, secretion control and airway management. Continue spontaneous breathing trials as tolerated. Continue Robinul and scopolamine for secretions. Continue baclofen. Continue Xanax for anxiety and Ambien for sleep. Await case management follow-up with regards to discharge planning. 04/25/2020. Patient remains on AC mode ventilation rate 10, tidal volume 400, FiO2 30% and PEEP of 6. Continue tracheostomy care, secretion control and airway management. Continue spontaneous breathing trials as tolerated. Continue Robinul and scopolamine for secretions. Continue baclofen. Continue Xanax for anxiety and Ambien for sleep. Await case management follow-up with regards to discharge planning. 04/26. Patient remains on AC mode ventilation rate 10, tidal volume 400, FiO2 30% and PEEP of 6. Continue tracheostomy care, secretion control and airway management. Continue spontaneous breathing trials as tolerated. Continue Robinul and scopolamine for secretions. Continue baclofen. Continue Xanax for anxiety and Ambien for sleep. Await case management follow-up with regards to discharge planning. 04/27. Patient remains on AC mode ventilation rate 10, tidal volume 400, FiO2 30% and PEEP of 6. Continue tracheostomy care, secretion control and airway management. Continue spontaneous breathing trials as tolerated. Continue Robinul and scopolamine for secretions. Continue baclofen. Continue Xanax for anxiety and Ambien for sleep. Await case management follow-up with regards to discharge planning. 04/28/20 no acute events overnight, remains vent dependent, cardiology and pulmonary notes reviewed 04/29 remains intubated via tracheostomy, no acute events 04/30 no acute events overnight, cardiology note reviewed, remains vent dependent, discharge planning per case management 05/01 stable. cardiology and pulmonary notes reviewed. D/C acu-checks 05/02 -todate: Clinically stable, CM working on placement. Continue supportive care. Subjective Date of service: 05/02/20 Principal diagnosis: Ac on Ch Hypercapnic & hypoxemic Resp Failure; Severe Sepsis; Jamar PNA; ALS Interval history: Patient seen and examined Remains on trach tube Discussed with RN at the bedside Vitals reviewed -BP stable Tolerating tube feeding with PEG tube Objective - Exam Narrative Exam: GENERAL: Awake. Intubated with trach tube HEAD: No signs of head trauma. EYES: Pupils are equal. Extraocular motions intact. EARS: Hearing grossly intact. MOUTH: Oropharynx is normal. NECK: No adenopathy, no JVD. CHEST: Coarse breath sounds bilaterally CARDIAC: Regular rate and rhythm. S1 and S2, without murmurs, gallops, or rubs. VASCULAR: No Edema. Peripheral pulses normal and equal in all extremities. ABDOMEN: Soft, non tender and nondistended. Bowel Sounds normal. PEG in place NEUROLOGIC EXAM: Awake, paraplegic SKIN: No obvious lesions - Constitutional Vitals: Vital Signs - 12hr 05/02/20 05/02/20 05/02/20 04:00 05:00 06:00 Temperature 97.7 F Pulse Rate 110 H 96 H 96 H Pulse Rate [ 105 H From Monitor] Respiratory 14 11 L 17 Rate Blood Pressure 118/69 110/73 110/80 O2 Sat by Pulse 100 99 98 Oximetry O2 Sat by Pulse Oximetry [ Assessment] 05/02/20 05/02/20 05/02/20 07:00 08:00 08:56 Temperature 98.1 F Pulse Rate 113 H 98 H 113 H Pulse Rate [ From Monitor] Respiratory 18 32 H 18 Rate Blood Pressure 108/78 208/120 108/78 O2 Sat by Pulse 97 84 97 Oximetry O2 Sat by Pulse Oximetry [ Assessment] 05/02/20 05/02/20 05/02/20 09:00 10:00 10:25 Temperature Pulse Rate 105 H 100 H 113 H Pulse Rate [ From Monitor] Respiratory 16 22 Rate Blood Pressure 104/70 112/69 O2 Sat by Pulse 99 Oximetry O2 Sat by Pulse Oximetry [ Assessment] 05/02/20 05/02/20 05/02/20 11:00 11:33 11:35 Temperature Pulse Rate 112 H 112 H Pulse Rate [ From Monitor] Respiratory 16 10 L Rate Blood Pressure 126/83 O2 Sat by Pulse 100 98 Oximetry O2 Sat by Pulse 98 Oximetry [ Assessment] 05/02/20 05/02/20 12:00 14:45 Temperature 98.9 F Pulse Rate 100 H Pulse Rate [ From Monitor] Respiratory 23 Rate Blood Pressure 99/63 O2 Sat by Pulse 97 Oximetry O2 Sat by Pulse 97 Oximetry [ Assessment] - Labs CBC & Chem 7: 05/03/20 14:06 05/03/20 14:06 Labs: Abnormal lab results 05/01/20 Range/Units 23:35 POC Glucose 116 H (70-105) mg/dL HEART Score - HEART Score Troponin: Troponin T 0.181 ng/mL (0.00-0.029) H* 04/24/20 05:28
[2020-05-02] MEDS: ENOXAPARIN 40 MG/0.4 ML INJ SUB-Q SCH (21:10)
[2020-05-02] MEDS: ZOLPIDEM 5 MG TAB PO PRN (21:11)
[2020-05-02] MEDS: SENNOSIDES 8.6 MG TAB PO SCH (21:11)
[2020-05-02] MEDS: MAGNESIUM HYDROXIDE (MOM) ORAL LIQD UDC PO PRN (21:11)
[2020-05-03] MEDS: MORPHINE 2 MG/1 ML INJ IV PRN ×4 (04:56→22:24)
[2020-05-03] MEDS: ALPRAZolam 0.5 MG TAB PO PRN ×3 (05:00→22:25)
[2020-05-03] MEDS: traMADol 50 MG TAB PO PRN ×3 (07:16→19:39)
[2020-05-03] MEDS: LIDOCAINE 5% 1 EACH PATCH TD SCH (11:19)
[2020-05-03] MEDS: DOCUSATE SODIUM 100 MG/10 ML ORAL LIQD FEEDTUBE SCH ×2 (11:20→22:25)
[2020-05-03] MEDS: ASPIRIN EC 81 MG TAB PO SCH (11:20)
[2020-05-03] MEDS: METOPROLOL TARTRATE 25 MG TAB PO SCH ×2 (11:20→22:25)
[2020-05-03] MEDS: TAMSULOSIN 0.4 MG CAP PO SCH (11:20)
[2020-05-03] MEDS: PREGABALIN 75 MG CAP PO SCH ×2 (11:20→22:24)
[2020-05-03] MEDS: GLYCOPYRROLATE 1 MG TAB PO SCH ×3 (11:20→19:39)
[2020-05-03] MEDS: LANSOPRAZOLE 30 MG SOLUTAB FEEDTUBE SCH (11:21)
[2020-05-03] MEDS: MAGIC MOUTHWASH 30ML PO SCH ×3 (11:21→19:40)
[2020-05-03] MEDS: BACLOFEN 10 MG TAB PO SCH ×2 (11:21→22:25)
[2020-05-03] MEDS: SODIUM HYPOCHLORITE, DAKIN'S 1/2 STRENGTH (0.25%) 473 ML TOPICAL SOLN TP SCH ×2 (11:22→22:25)
[2020-05-03 14:36] LABS: Hematocrit 31.2 % (35.5-45.6); Mean Corpuscular HGB Conc 32 % (32-34); Mean Corpuscular Volume 80 fl (84-94); Platelet Count 488 K/mm3 (140-440); Red Blood Count 3.88 M/mm3 (3.65-5.03); Red Cell Distribution Width 17.6 % (13.2-15.2)
[2020-05-03 14:52] LABS: Blood Urea Nitrogen 15 mg/dL (9-20); Hemolysis Index 8
[2020-05-03 14:53] LABS: BUN/Creatinine Ratio 75
--- NOTE | 2020-05-03 16:26 | Progress Note ---
Assessment and Plan --Acute hypoxic hypercapnic respiratory failure; Intubated on mechanical ventilation. Etiology secondary to sepsis, ALS, multifocal pneumonia (Covid negative). S/p trach placement 03/07/20 --Status post cardiac arrest on 02/25, cardiac hernandez now stable --Dysphagia, status post PEG placement for tube feeding --ALS; Chronic Continue to provide supportive care --Elevated D-dimers; CTA chest, lower extremity venous Doppler both are negative Lovenox for DVT prophylaxis --Bilateral pneumonia; probably community-acquired Completed treatment ID recommendations appreciated --Sepsis secondary to pneumonia s/p empiric antibiotic --Elevated troponin; Serial cardiac enzymes, serial EKGs Echocardiogram, cardiology consult if needed --Hypernatremia Trend sodium Free water via feeding tube --Abdominal distention due to bladder outlet obstruction, resolved CT abdomen showed bladder outlet obstruction, urology consulted s/p drake placement by urology on 03/09 --Hypotension possibly from septic shock and bladder outlet obstruction improved following placing drake --Hypernatremia due to hypovolumia, resolved free water with TF --Constipation; Patient already received Dulcolax suppository and Colace Received milk of magnesia, with relief --DVT prophylaxis; Lovenox Brief history: 59-year-old male patient with significant past medical history of ALS, presented to ED with worsening shortness of breath since the morning OIL EXPELLER. Patient was on a trilogy machine for breathing 18/11. EMS arrived, patient had O2 sats in the 80s. EMS attempted to place patient on their CPAP machine, however patient did not tolerate. Patient was admitted to the ICU with diagnosis of acute hypoxic respiratory failure and placed on BiPAP. Patient initially tolerated but later deteriorated with respiratory status. CTA chest showed no PE but significant for bilateral pneumonia. Doppler ultrasound also negative for DVT. COVID-19 test ordered and negative. Due to persistent hypoxia and asystolic/V. fib cardiac arrest, patient was intubated on 02/26/2020 at 1500. Patient now on mechanical ventilation in the ICU s/p trach placement and now unable to wean off from the mechanical ventilation. Patient now status post PEG placement for tube feeding. Patient most likely need long-term placement -LTAC versus SNF Daily course: 02/25/2020. CTA of the chest reveals no PE but does illustrate the bilateral pneumonia. Doppler ultrasound also negative for DVT. Blood cultures are pe nding. Await COVID-19 testing. Patient currently requiring BiPAP IPAP 24/EPAP 6 with FiO2 of 25%. Continue O2 and BiPAP as clinically indicated. ID and pulmonary consulted. 02/26/2020. Blood cultures are negative x48 hours and Covid testing negative as well. Continue antibiotics per ID recommendations for community-acquired bilateral pneumonia. Cardiology consultation for elevated troponin. Check echocardiogram. 02/27/2020. Events of yesterday noted with asystole following V. fib arrest. Patient currently on AC mode rate 20, tidal volume 400, FiO2 50% and a PEEP of 6. Follow-up echocardiogram for elevated troponin. Cardiology suspects NSTEMI Type 2 in the setting of acute resp failure. Chest CTA and BLE Dopplers neg. we will discontinue Decadron given the Covid PCR is negative. 02/28/2020. I spoke with the sister Felisa Eli who is the power of patent prosecution attorney regarding advanced directives and she instructed me that she would like to continue with aggressive care at this time. I informed her of the guarded prognosis and high mortality/morbidity and she voiced understanding. Patient currently with AC mode ventilation rate 18, tidal volume 400, FiO2 40% and a PEEP of 6. Continue antibiotics for pneumonia. ID previously consulted. Also consult neurology with regards to ALS. 02/29/2020; patient is intubated and on CPAP patient is alert and oriented. Patient has ALS. Dr. Álvarez spoke with his sister and she wants aggressive care. Continue antibiotics for pneumonia. Neurology consulted for ALS. Prognosis poor 03/01/2020; patient is intubated and on CPAP, patient is alert and oriented. I spoke with his 2 sisters about the management plan. 03/02/2020; patient is intubated and on CPAP. Patient was alert and oriented. I spoke with Dr. mohr and he thinks patient may need mechanical ventilation, likely his disease progressed. Dr. Flowers did debridement this morning. 03/03/2020; patient is intubated and on CPAP, patient was on trilogy and BiPAP at home. Patient has ALS. on spontaneous breathing trial. Patient is alert and oriented but quadriplegic. Patient has severe bilateral pneumonia and is on cefepime and Vanco, ID is following. Patient has sacral decubitus ulcer and debridement was done by Dr. Flowers and there is no osteomyelitis. 03/05. Patient still on broad-spectrum antibiotics. Status post sacral decubitus ulcer debridements-no osteomyelitis. Patient is on AC 25/400/30% PEEP 5. No blood gas results today. 03/06. Plan for tracheostomy by surgery. Still remains intubated. Labs reviewed-sodium 150. Started on free water 200 every 8hr. trend sodium. 03/07: s/p trach placement today, patient placed back on mechanical ventilation with trach. Plan to resume tube feeding with NG tube. Continue to monitor vitals, monitor BMP. 03/08: Patient noted to have distended abdomen with low urinary output. Obtain bladder scan rule out urine retention, UA and urine culture, continue to follow clinically. 03/09: Patient noted to have low blood pressure with SBP as low as 70s. Ordered for 500 mils normal saline bolus. CT abdomen showed bladder outlet obstruction, urology consulted. 03/10: placed on drake by urology o/n, improved urine outpt. cont to monitor BMP. resuded TF - cont free water with TF. wean off from vent as tolerated. 03/11: Vitals stable. cont TF, wean off from vent as tolerated. start on 1/2 NS for hypernatremia - follow BMP 03/12: wean off vent as tolerated, plan for speech eval, cont Tf for now, cont iv fluid 03/13: unable to wean off from vent, unable to do speech therapy eval. will need PEG tube, cont supportive care for now, cont NG tube feeding 03/14: consulted GI for PEg placemnet, cont supportive care. remains on vent at night 03/15: Discussed with GI, plan for PEG tube placement possibly tomorrow. Continue supportive care and wean off from vent as tolerated. Hold Lovenox dose tonight. 03/16: family didnot consent for PEG placement yesterday. I spoke with the megan rodriguez today and she is now agreeable for PEG tube. I explained the necessity of the procedure with RN to the patient also and he nodded started on tube feeding, for the procedure. will cont supportive care. planned for PEG tube placement tomorrow. 03/17: s/p PEG placement today, patient tolerated well, cont supportive care 03/18: Started on tube feeding with new PEG tube, continue to wean off vent as tolerated 03/19: cont to monitor with supportive care, wean off vent as tolerated 03/20: Continue to wean off vent as tolerated -but failing weaning trial. Still requiring vent support at night. Currently on PEG tube for tube feed. 03/21. Pt with PSV trials with FiO@ 30%, PEEP 6, PS 10. Currently on PEG tube for tube feed. 03/22/2020. Continue PSV trials per pulmonary. Continue bronchodilators. Patient tolerating tube feedings. Continue Robinul for secretion control. 03/23/2020. Continue PSV trials per pulmonary. Continue bronchodilators. Continue Scopolamine and Robinul for secretion control. Trach care/airway management. Mobility protocols for pressure ulcer prophylaxis. LTAC evaluation per case management 03/24/2020. Continue PSV trials with current settings pressure support 10, PEEP 6 and FiO2 30%. Continue bronchodilators/nebulizer. Continue Scopolamine and Robinul for secretion control. Trach care/airway management. Mobility protocols for pressure ulcer prophylaxis. LTAC evaluation per case management 03/25/2020. Pulmonary to proceed with T-piece trials today. Continue bronchodilators/nebulizer. Continue Scopolamine and Robinul for secretion control. Trach care/airway management. Mobility protocols for pressure ulcer prophylaxis. 03/26/2020. Patient currently with PSV 10/6 at FiO2 of 30%. Continue weaning and T-piece trials per protocol. Continue bronchodilators/nebulizer. Continue Scopolamine and Robinul for secretion control. Trach care/airway management. Mobility protocols for pressure ulcer prophylaxis. Continue tube feeding with aspiration precautions. 03/27/2020. Patient currently with PSV 10/6 at FiO2 of 30%. Continue weaning and T-piece trials per protocol. Continue bronchodilators/nebulizer. Continue Scopolamine and Robinul for secretion control. Trach care/airway management. Mobility protocols for pressure ulcer prophylaxis. Continue tube feeding with aspiration precautions. 03/28. Had temp 100.7F. He has been off antibiotics. Will send blood culture, ua, urine culture and chest xray. Had chest pain overnight and trop was elevated as well. Cardiology to evaluate 03/29. Has back pain due to position. He mentions his chest pain is positional. Has no other complaints. Still on mechanical ventilation 03/30. No chest pain today. Labs reviewed. Discussed chest pain with cardiology and team advised no further work up at this time. Can follow up with cardiology in the office after hospitalization 03/31. Lidocaine patch for lower back pain. 04/01. Discharge planning underway. CM notes reviewed. Discussed with daughter 04/02. CM trying to arrange discharge. Continue PSV trials. Discussed with patients significant other 04/04/2020; CM is working for discharge arrangement. Continue PSV trials. 04/05/2020; patient was seen and evaluated this morning and no change from baseline. Continue with PSV trials. Follow with hoist mechanic for discharge planning. 04/06/2020;patient was seen and evaluated this morning and no change from baseline. Continue with PSV trials. Follow with hoist mechanic for discharge planning. 04/07/2020; patient was seen and evaluated this morning and no change from baseline. Continue with PSV trials. Follow with hoist mechanic for discharge planning. 04/08/2020; patient is vent dependent. Discharge is per hoist mechanic. 04/09/2020 patient is vent dependent, possible LTAC placement 04/10/2020; tracheostomy on vent, vent dependent pending LTAC placement 04/11/2020; clinically no change, tracheostomy on ventilatory support, wean as tolerated, awaiting placement 04/12/2020; remains on ventilatory support, unable to wean, patient wants to see a speech therapist for sound box However we cannot try that as long as he is on ventilatory support, once he is weaned off vent We will consult speech therapist, plan of care reviewed with the patient and his nurse 04/14/2020; clinically no change, on ventilatory support, complains of constipation, milk of magnesia Closely monitor the patient and adjust the management as needed 04/15/2020; patient has some oral thrush on the tongue, will give Magic mouthwash/nystatin swish and spit Wean off vent as tolerated 04/16 patient is alert and oriented, unable to comprehend what he is trying to tell but appears to complain of some pain, no acute events overnight, all interdisciplinary notes reviewed. [facility]ing for [facility] facility placement 04/17/2020. Continue supportive care with mechanical ventilation. Patient currently on AC mode rate 10, tidal volume 400 FiO2 30% with a PEEP of 6. Discharge planning per case management. 04/18/2020. Patient remains on mechanical ventilation AC mode rate 10, tidal volume 400, FiO2 30% and PEEP of 6. Continue spontaneous breathing trials as tolerated. Previously, patient was considered for discharge home with skilled staff providing care for 12 hours 7 days/week. Continue discussed with case management discharge planning. 04/19/20. Patient remains on mechanical ventilation AC mode rate 10, tidal volume 400, FiO2 30% and PEEP of 6. Continue spontaneous breathing trials as tolerated. 04/20/2020. Patient remains on mechanical ventilation AC mode rate 10, tidal volume 400, FiO2 30% and PEEP of 6. Continue spontaneous breathing trials as tolerated. 04/21/2020. Patient remains on mechanical ventilation AC mode rate 10, tidal volume 400, FiO2 30% and PEEP of 6. Continue tracheostomy care, secretion control and airway management. Continue spontaneous breathing trials as tolerated. 04/22/2020. Patient remains on mechanical ventilation AC mode rate 10, tidal volume 400, FiO2 30% and PEEP of 6. Continue tracheostomy care, secretion control and airway management. Continue spontaneous breathing trials as tolera milana. 04/23/2020. Patient on mechanical ventilation AC mode rate 18, tidal volume 450, FiO2 30% and PEEP of 6. Continue tracheostomy care, secretion control and airway management. Continue spontaneous breathing trials as tolerated. Continue Robinul and scopolamine for secretions. Continue baclofen. 04/24/2020. Patient remains on AC mode ventilation rate 10, tidal volume 400, FiO2 30% and PEEP of 6. Continue tracheostomy care, secretion control and airway management. Continue spontaneous breathing trials as tolerated. Continue Robinul and scopolamine for secretions. Continue baclofen. Continue Xanax for anxiety and Ambien for sleep. Await case management follow-up with regards to discharge planning. 04/25/2020. Patient remains on AC mode ventilation rate 10, tidal volume 400, FiO2 30% and PEEP of 6. Continue tracheostomy care, secretion control and airway management. Continue spontaneous breathing trials as tolerated. Continue Robinul and scopolamine for secretions. Continue baclofen. Continue Xanax for anxiety and Ambien for sleep. Await case management follow-up with regards to discharge planning. 04/26. Patient remains on AC mode ventilation rate 10, tidal volume 400, FiO2 30% and PEEP of 6. Continue tracheostomy care, secretion control and airway management. Continue spontaneous breathing trials as tolerated. Continue Robinul and scopolamine for secretions. Continue baclofen. Continue Xanax for anxiety and Ambien for sleep. Await case management follow-up with regards to discharge planning. 04/27. Patient remains on AC mode ventilation rate 10, tidal volume 400, FiO2 30% and PEEP of 6. Continue tracheostomy care, secretion control and airway management. Continue spontaneous breathing trials as tolerated. Continue Robinul and scopolamine for secretions. Continue baclofen. Continue Xanax for anxiety and Ambien for sleep. Await case management follow-up with regards to discharge planning. 04/28/20 no acute events overnight, remains vent dependent, cardiology and pulmonary notes reviewed 04/29 remains intubated via tracheostomy, no acute events 04/30 no acute events overnight, cardiology note reviewed, remains vent dependent, discharge planning per case management 05/01 stable. cardiology and pulmonary notes reviewed. D/C acu-checks 05/02 - todate: Clinically stable, CM working on placement. Continue supportive care. Subjective Date of service: 05/03/20 Principal diagnosis: Ac on Ch Hypercapnic & hypoxemic Resp Failure; Severe Sepsis; Jamar PNA; ALS Interval history: Patient seen and examined Remains on trach tube Discussed with RN at the bedside Vitals reviewed -BP stable Tolerating tube feeding with PEG tube Objective - Exam Narrative Exam: GENERAL: Awake. Intubated with trach tube HEAD: No signs of head trauma. EYES: Pupils are equal. Extraocular motions intact. EARS: Hearing grossly intact. MOUTH: Oropharynx is normal. NECK: No adenopathy, no JVD. CHEST: Coarse breath sounds bilaterally CARDIAC: Regular rate and rhythm. S1 and S2, without murmurs, gallops, or rubs. VASCULAR: No Edema. Peripheral pulses normal and equal in all extremities. ABDOMEN: Soft, non tender and nondistended. Bowel Sounds normal. PEG in place NEUROLOGIC EXAM: Awake, paraplegic SKIN: No obvious lesions - Constitutional Vitals: Vital Signs - 12hr 05/03/20 05/03/20 05/03/20 04:56 05:00 05:26 Temperature Pulse Rate 114 H Respiratory 17 22 20 Rate Blood Pressure 117/84 O2 Sat by Pulse 97 Oximetry O2 Sat by Pulse Oximetry [ Assessment] 05/03/20 05/03/20 05/03/20 06:00 07:00 07:16 Temperature Pulse Rate 105 H 110 H Respiratory 15 21 20 Rate Blood Pressure 124/77 115/78 O2 Sat by Pulse 97 98 Oximetry O2 Sat by Pulse Oximetry [ Assessment] 05/03/20 05/03/20 05/03/20 08:00 08:43 08:48 Temperature 98.3 F Pulse Rate 103 H 110 H Respiratory 12 14 Rate Blood Pressure 108/80 115/78 O2 Sat by Pulse 98 98 Oximetry O2 Sat by Pulse 98 Oximetry [ Assessment] 05/03/20 05/03/20 05/03/20 09:00 10:00 11:00 Temperature Pulse Rate 101 H 110 H 117 H Respiratory 12 15 21 Rate Blood Pressure 117/73 114/66 112/68 O2 Sat by Pulse 97 96 95 Oximetry O2 Sat by Pulse Oximetry [ Assessment] 05/03/20 05/03/20 05/03/20 11:20 12:00 12:25 Temperature Pulse Rate 117 H 119 H 117 H Respiratory 21 12 Rate Blood Pressure 119/84 117/73 O2 Sat by Pulse 97 97 Oximetry O2 Sat by Pulse Oximetry [ Assessment] 05/03/20 05/03/20 05/03/20 13:00 14:00 15:00 Temperature Pulse Rate 96 H 96 H 98 H Respiratory 23 27 H 14 Rate Blood Pressure 103/74 103/72 103/74 O2 Sat by Pulse 97 97 97 Oximetry O2 Sat by Pulse Oximetry [ Assessment] 05/03/20 05/03/20 15:31 15:33 Temperature Pulse Rate 100 H Respiratory 15 Rate Blood Pressure 107/67 O2 Sat by Pulse 97 Oximetry O2 Sat by Pulse 98 Oximetry [ Assessment] - Labs CBC & Chem 7: 05/03/20 14:06 05/03/20 14:06 Labs: Abnormal lab results 05/03/20 05/03/20 05/03/20 Range/Units 05:09 11:36 14:06 WBC 12.5 H (4.5-11.0) K/mm3 Hgb 10.0 L (11.8-15.2) gm/dl Hct 31.2 L (35.5-45.6) % MCV 80 L (84-94) fl MCH 26 L (28-32) pg RDW 17.6 H (13.2-15.2) % Plt Count 488 H (140-440) K/mm3 Chloride (98-107) mmol/L Carbon Dioxide (22-30) mmol/L Creatinine (0.8-1.3) mg/dL Glucose (75-100) mg/dL POC Glucose 117 H 116 H (70-105) mg/dL 05/03/20 Range/Units 14:06 WBC (4.5-11.0) K/mm3 Hgb (11.8-15.2) gm/dl Hct (35.5-45.6) % MCV (84-94) fl MCH (28-32) pg RDW (13.2-15.2) % Plt Count (140-440) K/mm3 Chloride 95.4 L (98-107) mmol/L Carbon Dioxide 40 H (22-30) mmol/L Creatinine < 0.2 L (0.8-1.3) mg/dL Glucose 121 H (75-100) mg/dL POC Glucose (70-105) mg/dL HEART Score - HEART Score Troponin: Troponin T 0.181 ng/mL (0.00-0.029) H* 04/24/20 05:28
[2020-05-03] MEDS: ACETAMINOPHEN 325 MG TAB PO PRN (19:40)
--- NOTE | 2020-05-03 21:50 | Progress Note ---
Assessment and Plan Patient sleeping at this time. Patient is on assist control, rate 10, tidal volume 400,FIO2 30%, PEEP 6 and O2 saturation running 97%. Recommend Continue spontaneous breathing trials as tolerated.Respiratory therapy told me, Patient Not tolearing T tube trial ' Recommend to pressure support to 5.Patient afebrile and has leukocytosis. Chest xray done 05/02/20 reported Interval worsening of right lung base opacity now appears to be pleural parenchymal. This may be a worsened infectious process or development of right-sided pleural effusion and worsened right lung base atelectasis. Left lung base opacity is stable. Tracheostomy in stable position. Patient right lung base infiltrate reported intervel worsening, patient has daren kocytosis, recommend to place him antibiotic like zosyn. - Patient Problems (1) Acute on chronic respiratory failure with hypoxia and hypercapnia Current Visit: Yes Status: Acute Plan to address problem: Patient is resting on assist control, rate 10, tidal volume 400, FIO2 30%, PEEP 6. Albuterol inhaler 2 puffs po qid. Continue S/C Lovenox. Continue prevacid. Recommend T tube trials as tolerated. (2) Bleeding from wound Current Visit: Yes Status: Acute Plan to address problem: Management primary care , surgery and wound care. (3) Elevated d-dimer Current Visit: Yes Status: Acute Plan to address problem: Patients venous doppler studies of legs, CTA chest reported Negative for VTE. Patient is on S/C Lovenox 40 mg qd. (4) Elevated troponin Current Visit: Yes Status: Acute Plan to address problem: Management as per primary care and cardiology (5) NSTEMI (non-ST elevated myocardial infarction) Current Visit: Yes Status: Acute Plan to address problem: Management as per cardiology. (6) Pneumonia Current Visit: Yes Status: Acute Qualifiers: Laterality: bilateral Plan to address problem: Patient afebrile . Has mild leukocytosis. Repeat Chest xray done 05/02/20 reported Interval worsening of right lung base opacity now appears to be pleural parenchymal. This may be a worsened infectious process or development of right-sided pleural effusion and worsened right lung base atelectasis. Left lung base opacity is stable. Tracheostomy in stable position. Patient right lung base infiltrate reported intervel worsening, patient has leukocytosis, recommend to place him antibiotic like zosyn. Subjective Date of service: 05/03/20 Principal diagnosis: Ac on Ch Hypercapnic & hypoxemic Resp Failure; Severe Sepsis; Jamar PNA; ALS Interval history: Patient sleeping at this time. Patient is on assist control, rate 10, tidal volume 400,FIO2 30%, PEEP 6 and O2 saturation running 97%. Recommend Continue spontaneous breathing trials as tolerated.Respiratory therapy told me, Patient Not tolearing T tube trial ' Recommend to pressure support to 5.Patient afebrile and has leukocytosis. Chest xray done 05/02/20 reported Interval worsening of right lung base opacity now appears to be pleural parenchymal. This may be a worsened infectious process or development of right-sided pleural effusion and worsened right lung base atelectasis. Left lung base opacity is stable. Tracheostomy in stable position. Patient right lung base infiltrate reported intervel worsening, patient has leukocytosis, recommend to place him antibiotic like zosyn. Objective Vital Signs - 12hr 05/03/20 05/03/20 05/03/20 10:00 11:00 11:20 Temperature Pulse Rate 110 H 117 H 117 H Respiratory 15 21 Rate Blood Pressure 114/66 112/68 O2 Sat by Pulse 96 95 Oximetry O2 Sat by Pulse Oximetry [ Assessment] 05/03/20 05/03/20 05/03/20 12:00 12:25 13:00 Temperature 97.8 F Pulse Rate 119 H 117 H 96 H Respiratory 21 12 23 Rate Blood Pressure 119/84 117/73 103/74 O2 Sat by Pulse 97 97 97 Oximetry O2 Sat by Pulse Oximetry [ Assessment] 05/03/20 05/03/20 05/03/20 14:00 15:00 15:31 Temperature Pulse Rate 96 H 98 H 100 H Respiratory 27 H 14 15 Rate Blood Pressure 103/72 103/74 107/67 O2 Sat by Pulse 97 97 97 Oximetry O2 Sat by Pulse Oximetry [ Assessment] 05/03/20 05/03/20 05/03/20 15:33 16:00 17:00 Temperature 97.6 F Pulse Rate 105 H 101 H Respiratory 16 18 Rate Blood Pressure 104/71 111/75 O2 Sat by Pulse 98 Oximetry O2 Sat by Pulse 98 Oximetry [ Assessment] 05/03/20 05/03/20 05/03/20 18:00 19:00 19:39 Temperature Pulse Rate 111 H 114 H Respiratory 23 23 22 Rate Blood Pressure 118/82 109/79 O2 Sat by Pulse 91 96 Oximetry O2 Sat by Pulse Oximetry [ Assessment] 05/03/20 05/03/20 19:40 20:00 Temperature 98.2 F Pulse Rate 113 H Respiratory 20 Rate Blood Pressure 121/49 O2 Sat by Pulse 97 Oximetry O2 Sat by Pulse Oximetry [ Assessment] Constitutional: no acute distress, alert, other (thin middle aged male with normal respiratory effort at rest on MVS) Eyes: non-icteric ENT: oropharynx moist, other (S/P Tracheostomy) Neck: supple, no lymphadenopathy, no JVD Effort: mildly labored Ascultation: Bilateral: diminished breath sounds, wheezes, rhonchi Percussion: Bilateral: not dull Cardiovascular: regular rate and rhythm, other (S1,S2, no murmurs) Gastrointestinal: normoactive bowel sounds, soft, non-tender, non-distended, other (+ distended but non tender suprapubis) Integumentary: normal, decubitus ulcer (sacral / gluteal) Extremities: no cyanosis, no edema, pulses normal, other (atrophic looking limbs) Neurologic: pupils equal and round, other (motor strength in extremities 1-2/5, awake, alert, mouths words to make needs known) Psychiatric: mood appropriate, affect normal CBC and BMP: 05/03/20 14:06 05/03/20 14:06 ABG, PT/INR, D-dimer: ABG ABG pH 7.371 (7.320-7.450) 03/08/20 12:34 POC ABG pCO2 63.1 mmHg (32.0-48.0) H 03/08/20 12:34 ABG pCO2 60.1 mm Hg 03/06/20 04:34 POC ABG pO2 90.5 mmHg (83-108) 03/08/20 12:34 ABG pO2 88.6 mm Hg (80.0-90.0) 03/06/20 04:34 POC ABG HCO3 35.7 03/08/20 12:34 ABG O2 Saturation 97.0 % (95.0-99.0) 03/06/20 04:34 PT/INR, D-dimer PT 15.6 Sec. (12.2-14.9) H 02/24/20 09:19 INR 1.21 (0.87-1.13) H 02/24/20 09:19 D-Dimer 1311.96 ng/mlDDU (0-234) H 02/24/20 09:19 Abnormal lab findings: Abnormal Labs 02/24/20 02/24/20 02/24/20 09:19 09:19 09:19 WBC 20.2 H RBC 5.05 H Hgb Hct MCV MCH RDW 15.3 H Plt Count Lymph % (Auto) [place] % (Auto) Lymph # (Auto) [place] # (Auto) Seg Neutrophils % Seg Neuts % (Manual) 86.0 H Lymphocytes % (Manual) 1.0 L Monocytes % (Manual) Basophils % (Manual) Seg Neutrophils # Seg Neutrophils # Man 17.4 H Lymphocytes # (Manual) 0.2 L Monocytes # (Manual) Eosinophils # (Manual) Basophils # (Manual) PT 15.6 H INR 1.21 H D-Dimer 1311.96 H ABG pH POC ABG pCO2 POC ABG pO2 ABG pO2 ABG HCO3 ABG O2 Saturation ABG Base Excess ABG Hemoglobin ABG Oxyhemoglobin ABG Potassium ABG Glucose Oxyhemoglobin Carboxyhemoglobin Sodium 135 L Potassium 3.2 L Chloride 92.2 L Carbon Dioxide BUN 6 L Creatinine < 0.2 L Glucose 124 H POC Glucose Calcium Ferritin Total Bilirubin 2.30 H Alkaline Phosphatase 132 H Lactate Dehydrogenase Total Creatine Kinase CK-MB (CK-2) Rel Index Troponin T 0.080 H C-Reactive Protein Total Protein Albumin 3.6 L Prealbumin LDL Cholesterol Direct 41 L HDL Cholesterol Arterial Blood Glucose Arterial Blood Ionized Calcium Urine WBC (Auto) 02/24/20 02/24/20 02/24/20 09:19 09:58 10:01 WBC RBC Hgb Hct MCV MCH RDW Plt Count Lymph % (Auto) [place] % (Auto) Lymph # (Auto) [place] # (Auto) Seg Neutrophils % Seg Neuts % (Manual) Lymphocytes % (Manual) Monocytes % (Manual) Basophils % (Manual) Seg Neutrophils # Seg Neutrophils # Man Lymphocytes # (Manual) Monocytes # (Manual) Eosinophils # (Manual) Basophils # (Manual) PT INR D-Dimer ABG pH 7.176 L* POC ABG pCO2 POC ABG pO2 ABG pO2 91.2 H ABG HCO3 ABG O2 Saturation ABG Base Excess -4.6 L ABG Hemoglobin ABG Oxyhemoglobin ABG Potassium ABG Glucose Oxyhemoglobin 92.6 L Carboxyhemoglobin Sodium Potassium Chloride Carbon Dioxide BUN Creatinine Glucose POC Glucose Calcium Ferritin 1715.0 H Total Bilirubin Alkaline Phosphatase Lactate Dehydrogenase 303 H Total Creatine Kinase CK-MB (CK-2) Rel Index Troponin T C-Reactive Protein 26.10 H Total Protein Albumin Prealbumin LDL Cholesterol Direct HDL Cholesterol Arterial Blood Glucose Arterial Blood Ionized Calcium Urine WBC (Auto) 02/24/20 02/24/20 02/24/20 11:52 13:45 19:35 WBC RBC Hgb Hct MCV MCH RDW Plt Count Lymph % (Auto) [place] % (Auto) Lymph # (Auto) [place] # (Auto) Seg Neutrophils % Seg Neuts % (Manual) Lymphocytes % (Manual) Monocytes % (Manual) Basophils % (Manual) Seg Neutrophils # Seg Neutrophils # Man Lymphocytes # (Manual) Monocytes # (Manual) Eosinophils # (Manual) Basophils # (Manual) PT INR D-Dimer ABG pH 7.051 L* 7.300 L POC ABG pCO2 POC ABG pO2 ABG pO2 94.7 H 75.1 L ABG HCO3 18.0 L ABG O2 Saturation 93.5 L ABG Base Excess -6.8 L -7.8 L ABG Hemoglobin 13.2 L 11.9 L ABG Oxyhemoglobin ABG Potassium ABG Glucose Oxyhemoglobin 91.0 L 92.7 L Carboxyhemoglobin Sodium Potassium Chloride Carbon Dioxide BUN Creatinine Glucose POC Glucose Calcium Ferritin Total Bilirubin Alkaline Phosphatase Lactate Dehydrogenase Total Creatine Kinase CK-MB (CK-2) Rel Index Troponin T 0.034 H D C-Reactive Protein Total Protein Albumin Prealbumin LDL Cholesterol Direct HDL Cholesterol Arterial Blood Glucose Arterial Blood Ionized Calcium Urine WBC (Auto) 02/25/20 02/25/20 02/25/20 04:00 04:00 12:26 WBC 22.9 H RBC Hgb Hct MCV 83 L MCH 27 L RDW Plt Count 468 H Lymph % (Auto) [place] % (Auto) Lymph # (Auto) [place] # (Auto) Seg Neutrophils % Seg Neuts % (Manual) 89.0 H Lymphocytes % (Manual) 7.0 L Monocytes % (Manual) Basophils % (Manual) Seg Neutrophils # Seg Neutrophils # Man 20.4 H Lymphocytes # (Manual) Monocytes # (Manual) Eosinophils # (Manual) Basophils # (Manual) PT INR D-Dimer ABG pH POC ABG pCO2 POC ABG pO2 ABG pO2 ABG HCO3 ABG O2 Saturation ABG Base Excess ABG Hemoglobin ABG Oxyhemoglobin ABG Potassium 2.6 L ABG Glucose 142 H Oxyhemoglobin Carboxyhemoglobin Sodium Potassium 3.2 L Chloride Carbon Dioxide 18 L BUN Creatinine 0.2 L Glucose 114 H POC Glucose Calcium Ferritin Total Bilirubin Alkaline Phosphatase Lactate Dehydrogenase Total Creatine Kinase CK-MB (CK-2) Rel Index Troponin T C-Reactive Protein Total Protein Albumin 3.5 L Prealbumin LDL Cholesterol Direct HDL Cholesterol Arterial Blood Glucose 142 H Arterial Blood Ionized Calcium Urine WBC (Auto) 02/26/20 02/26/20 02/26/20 15:58 17:00 23:43 WBC RBC Hgb Hct MCV MCH RDW Plt Count Lymph % (Auto) [place] % (Auto) Lymph # (Auto) [place] # (Auto) Seg Neutrophils % Seg Neuts % (Manual) Lymphocytes % (Manual) Monocytes % (Manual) Basophils % (Manual) Seg Neutrophils # Seg Neutrophils # Man Lymphocytes # (Manual) Monocytes # (Manual) Eosinophils # (Manual) Basophils # (Manual) PT INR D-Dimer ABG pH 7.502 H POC ABG pCO2 POC ABG pO2 213.6 H ABG pO2 ABG HCO3 ABG O2 Saturation ABG Base Excess ABG Hemoglobin ABG Oxyhemoglobin 99.2 H ABG Potassium 2.9 L ABG Glucose 160 H Oxyhemoglobin Carboxyhemoglobin 0.4 L Sodium Potassium Chloride Carbon Dioxide BUN Creatinine Glucose POC Glucose 189 H 120 H Calcium Ferritin Total Bilirubin Alkaline Phosphatase Lactate Dehydrogenase Total Creatine Kinase CK-MB (CK-2) Rel Index Troponin T C-Reactive Protein Total Protein Albumin Prealbumin LDL Cholesterol Direct HDL Cholesterol Arterial Blood Glucose 160 H Arterial Blood Ionized Calcium 4.5 L Urine WBC (Auto) 02/27/20 02/27/20 02/27/20 05:00 07:04 17:45 WBC RBC Hgb Hct MCV MCH RDW Plt Count Lymph % (Auto) [place] % (Auto) Lymph # (Auto) [place] # (Auto) Seg Neutrophils % Seg Neuts % (Manual) Lymphocytes % (Manual) Monocytes % (Manual) Basophils % (Manual) Seg Neutrophils # Seg Neutrophils # Man Lymphocytes # (Manual) Monocytes # (Manual) Eosinophils # (Manual) Basophils # (Manual) PT INR D-Dimer ABG pH 7.524 H POC ABG pCO2 POC ABG pO2 ABG pO2 ABG HCO3 ABG O2 Saturation ABG Base Excess ABG Hemoglobin ABG Oxyhemoglobin ABG Potassium 3.0 L ABG Glucose 143 H Oxyhemoglobin Carboxyhemoglobin Sodium Potassium Chloride Carbon Dioxide BUN Creatinine Glucose POC Glucose 154 H 175 H Calcium Ferritin Total Bilirubin Alkaline Phosphatase Lactate Dehydrogenase Total Creatine Kinase CK-MB (CK-2) Rel Index Troponin T C-Reactive Protein Total Protein Albumin Prealbumin LDL Cholesterol Direct HDL Cholesterol Arterial Blood Glucose 143 H Arterial Blood Ionized Calcium Urine WBC (Auto) 02/27/20 02/28/20 02/28/20 Unknown 00:21 04:15 WBC 18.7 H RBC Hgb Hct MCV MCH RDW Plt Count Lymph % (Auto) 8.7 L [place] % (Auto) Lymph # (Auto) [place] # (Auto) 1.2 H Seg Neutrophils % 84.6 H Seg Neuts % (Manual) Lymphocytes % (Manual) Monocytes % (Manual) Basophils % (Manual) Seg Neutrophils # 15.9 H Seg Neutrophils # Man Lymphocytes # (Manual) Monocytes # (Manual) Eosinophils # (Manual) Basophils # (Manual) PT INR D-Dimer ABG pH POC ABG pCO2 POC ABG pO2 ABG pO2 ABG HCO3 ABG O2 Saturation ABG Base Excess ABG Hemoglobin ABG Oxyhemoglobin ABG Potassium ABG Glucose Oxyhemoglobin Carboxyhemoglobin Sodium Potassium 2.9 L* Chloride Carbon Dioxide 33 H D BUN Creatinine < 0.2 L Glucose 157 H POC Glucose 134 H Calcium Ferritin Total Bilirubin Alkaline Phosphatase Lactate Dehydrogenase Total Creatine Kinase CK-MB (CK-2) Rel Index Troponin T C-Reactive Protein Total Protein Albumin Prealbumin LDL Cholesterol Direct HDL Cholesterol Arterial Blood Glucose Arterial Blood Ionized Calcium Urine WBC (Auto) 02/28/20 02/28/20 02/28/20 04:15 05:16 05:39 WBC RBC Hgb Hct MCV MCH RDW Plt Count Lymph % (Auto) [place] % (Auto) Lymph # (Auto) [place] # (Auto) Seg Neutrophils % Seg Neuts % (Manual) Lymphocytes % (Manual) Monocytes % (Manual) Basophils % (Manual) Seg Neutrophils # Seg Neutrophils # Man Lymphocytes # (Manual) Monocytes # (Manual) Eosinophils # (Manual) Basophils # (Manual) PT INR D-Dimer ABG pH POC ABG pCO2 POC ABG pO2 ABG pO2 142.9 H ABG HCO3 34.1 H ABG O2 Saturation ABG Base Excess 8.3 H ABG Hemoglobin ABG Oxyhemoglobin ABG Potassium ABG Glucose Oxyhemoglobin Carboxyhemoglobin Sodium 151 H Potassium Chloride Carbon Dioxide 32 H BUN Creatinine 0.2 L Glucose 167 H POC Glucose 138 H Calcium Ferritin Total Bilirubin Alkaline Phosphatase Lactate Dehydrogenase Total Creatine Kinase CK-MB (CK-2) Rel Index Troponin T C-Reactive Protein Total Protein Albumin Prealbumin LDL Cholesterol Direct HDL Cholesterol Arterial Blood Glucose Arterial Blood Ionized Calcium Urine WBC (Auto) 02/28/20 02/28/20 02/28/20 11:05 11:33 12:54 WBC RBC Hgb Hct MCV MCH RDW Plt Count Lymph % (Auto) [place] % (Auto) Lymph # (Auto) [place] # (Auto) Seg Neutrophils % Seg Neuts % (Manual) Lymphocytes % (Manual) Monocytes % (Manual) Basophils % (Manual) Seg Neutrophils # Seg Neutrophils # Man Lymphocytes # (Manual) Monocytes # (Manual) Eosinophils # (Manual) Basophils # (Manual) PT INR D-Dimer ABG pH POC ABG pCO2 POC ABG pO2 ABG pO2 ABG HCO3 ABG O2 Saturation ABG Base Excess ABG Hemoglobin ABG Oxyhemoglobin ABG Potassium ABG Glucose Oxyhemoglobin Carboxyhemoglobin Sodium Potassium Chloride Carbon Dioxide BUN Creatinine Glucose POC Glucose 160 H Calcium Ferritin Total Bilirubin Alkaline Phosphatase Lactate Dehydrogenase Total Creatine Kinase CK-MB (CK-2) Rel Index Troponin T C-Reactive Protein 4.70 H Total Protein Albumin Prealbumin 0.090 L LDL Cholesterol Direct HDL Cholesterol Arterial Blood Glucose Arterial Blood Ionized Calcium Urine WBC (Auto) 02/28/20 02/29/20 02/29/20 17:34 00:44 04:05 WBC 19.6 H RBC Hgb Hct MCV MCH 27 L RDW 15.4 H Plt Count Lymph % (Auto) [place] % (Auto) Lymph # (Auto) [place] # (Auto) Seg Neutrophils % Seg Neuts % (Manual) 86.0 H Lymphocytes % (Manual) 7.0 L Monocytes % (Manual) Basophils % (Manual) Seg Neutrophils # Seg Neutrophils # Man 16.9 H Lymphocytes # (Manual) Monocytes # (Manual) 1.2 H Eosinophils # (Manual) Basophils # (Manual) PT INR D-Dimer ABG pH POC ABG pCO2 POC ABG pO2 ABG pO2 ABG HCO3 ABG O2 Saturation ABG Base Excess ABG Hemoglobin ABG Oxyhemoglobin ABG Potassium ABG Glucose Oxyhemoglobin Carboxyhemoglobin Sodium Potassium Chloride Carbon Dioxide BUN Creatinine Glucose POC Glucose 136 H 156 H Calcium Ferritin Total Bilirubin Alkaline Phosphatase Lactate Dehydrogenase Total Creatine Kinase CK-MB (CK-2) Rel Index Troponin T C-Reactive Protein Total Protein Albumin Prealbumin LDL Cholesterol Direct HDL Cholesterol Arterial Blood Glucose Arterial Blood Ionized Calcium Urine WBC (Auto) 02/29/20 02/29/20 02/29/20 04:05 05:14 05:33 WBC RBC Hgb Hct MCV MCH RDW Plt Count Lymph % (Auto) [place] % (Auto) Lymph # (Auto) [place] # (Auto) Seg Neutrophils % Seg Neuts % (Manual) Lymphocytes % (Manual) Monocytes % (Manual) Basophils % (Manual) Seg Neutrophils # Seg Neutrophils # Man Lymphocytes # (Manual) Monocytes # (Manual) Eosinophils # (Manual) Basophils # (Manual) PT INR D-Dimer ABG pH POC ABG pCO2 54.3 H POC ABG pO2 124.8 H ABG pO2 ABG HCO3 ABG O2 Saturation ABG Base Excess ABG Hemoglobin ABG Oxyhemoglobin ABG Potassium ABG Glucose 185 H Oxyhemoglobin Carboxyhemoglobin Sodium 148 H Potassium Chloride Carbon Dioxide 33 H BUN Creatinine < 0.2 L Glucose 173 H POC Glucose 152 H Calcium Ferritin Total Bilirubin Alkaline Phosphatase Lactate Dehydrogenase Total Creatine Kinase CK-MB (CK-2) Rel Index Troponin T C-Reactive Protein Total Protein Albumin Prealbumin LDL Cholesterol Direct HDL Cholesterol Arterial Blood Glucose 185 H Arterial Blood Ionized Calcium Urine WBC (Auto) 03/01/20 03/01/20 03/01/20 00:00 03:45 04:33 WBC 23.1 H RBC Hgb Hct MCV MCH 27 L RDW 15.3 H Plt Count Lymph % (Auto) [place] % (Auto) Lymph # (Auto) [place] # (Auto) Seg Neutrophils % Seg Neuts % (Manual) 92.0 H Lymphocytes % (Manual) 6.0 L Monocytes % (Manual) Basophils % (Manual) Seg Neutrophils # Seg Neutrophils # Man 21.3 H Lymphocytes # (Manual) Monocytes # (Manual) Eosinophils # (Manual) 0.5 H Basophils # (Manual) PT INR D-Dimer ABG pH 7.492 H POC ABG pCO2 POC ABG pO2 ABG pO2 157.1 H ABG HCO3 32.3 H ABG O2 Saturation ABG Base Excess 8.1 H ABG Hemoglobin 13.2 L ABG Oxyhemoglobin ABG Potassium ABG Glucose Oxyhemoglobin Carboxyhemoglobin Sodium Potassium Chloride Carbon Dioxide BUN Creatinine Glucose POC Glucose 109 H Calcium Ferritin Total Bilirubin Alkaline Phosphatase Lactate Dehydrogenase Total Creatine Kinase CK-MB (CK-2) Rel Index Troponin T C-Reactive Protein Total Protein Albumin Prealbumin LDL Cholesterol Direct HDL Cholesterol Arterial Blood Glucose Arterial Blood Ionized Calcium Urine WBC (Auto) 03/01/20 03/01/20 03/01/20 04:33 05:29 12:32 WBC RBC Hgb Hct MCV MCH RDW Plt Count Lymph % (Auto) [place] % (Auto) Lymph # (Auto) [place] # (Auto) Seg Neutrophils % Seg Neuts % (Manual) Lymphocytes % (Manual) Monocytes % (Manual) Basophils % (Manual) Seg Neutrophils # Seg Neutrophils # Man Lymphocytes # (Manual) Monocytes # (Manual) Eosinophils # (Manual) Basophils # (Manual) PT INR D-Dimer ABG pH POC ABG pCO2 POC ABG pO2 ABG pO2 ABG HCO3 ABG O2 Saturation ABG Base Excess ABG Hemoglobin ABG Oxyhemoglobin ABG Potassium ABG Glucose Oxyhemoglobin Carboxyhemoglobin Sodium 146 H Potassium Chloride Carbon Dioxide 32 H BUN Creatinine < 0.2 L Glucose 120 H POC Glucose 120 H 128 H Calcium Ferritin Total Bilirubin Alkaline Phosphatase Lactate Dehydrogenase Total Creatine Kinase CK-MB (CK-2) Rel Index Troponin T C-Reactive Protein Total Protein Albumin Prealbumin LDL Cholesterol Direct HDL Cholesterol Arterial Blood Glucose Arterial Blood Ionized Calcium Urine WBC (Auto) 03/01/20 03/01/20 03/02/20 17:38 23:46 06:13 WBC RBC Hgb Hct MCV MCH RDW Plt Count Lymph % (Auto) [place] % (Auto) Lymph # (Auto) [place] # (Auto) Seg Neutrophils % Seg Neuts % (Manual) Lymphocytes % (Manual) Monocytes % (Manual) Basophils % (Manual) Seg Neutrophils # Seg Neutrophils # Man Lymphocytes # (Manual) Monocytes # (Manual) Eosinophils # (Manual) Basophils # (Manual) PT INR D-Dimer ABG pH POC ABG pCO2 POC ABG pO2 ABG pO2 ABG HCO3 ABG O2 Saturation ABG Base Excess ABG Hemoglobin ABG Oxyhemoglobin ABG Potassium ABG Glucose Oxyhemoglobin Carboxyhemoglobin Sodium Potassium Chloride Carbon Dioxide BUN Creatinine Glucose POC Glucose 114 H 121 H 120 H Calcium Ferritin Total Bilirubin Alkaline Phosphatase Lactate Dehydrogenase Total Creatine Kinase CK-MB (CK-2) Rel Index Troponin T C-Reactive Protein Total Protein Albumin Prealbumin LDL Cholesterol Direct HDL Cholesterol Arterial Blood Glucose Arterial Blood Ionized Calcium Urine WBC (Auto) 03/02/20 03/02/20 03/03/20 09:47 09:47 10:21 WBC 23.6 H RBC Hgb Hct MCV MCH RDW 15.3 H Plt Count 494 H Lymph % (Auto) [place] % (Auto) Lymph # (Auto) [place] # (Auto) Seg Neutrophils % Seg Neuts % (Manual) 85.0 H Lymphocytes % (Manual) 6.0 L Monocytes % (Manual) Basophils % (Manual) Seg Neutrophils # Seg Neutrophils # Man 20.1 H Lymphocytes # (Manual) Monocytes # (Manual) 1.7 H Eosinophils # (Manual) Basophils # (Manual) PT INR D-Dimer ABG pH POC ABG pCO2 POC ABG pO2 ABG pO2 ABG HCO3 ABG O2 Saturation ABG Base Excess ABG Hemoglobin ABG Oxyhemoglobin ABG Potassium 3.3 L ABG Glucose 158 H Oxyhemoglobin Carboxyhemoglobin Sodium Potassium Chloride Carbon Dioxide BUN Creatinine < 0.2 L Glucose 177 H POC Glucose Calcium Ferritin Total Bilirubin Alkaline Phosphatase Lactate Dehydrogenase Total Creatine Kinase CK-MB (CK-2) Rel Index Troponin T C-Reactive Protein Total Protein Albumin Prealbumin LDL Cholesterol Direct HDL Cholesterol Arterial Blood Glucose 158 H Arterial Blood Ionized Calcium Urine WBC (Auto) 03/03/20 03/04/20 03/04/20 21:30 00:00 12:23 WBC RBC Hgb Hct MCV MCH RDW Plt Count Lymph % (Auto) [place] % (Auto) Lymph # (Auto) [place] # (Auto) Seg Neutrophils % Seg Neuts % (Manual) Lymphocytes % (Manual) Monocytes % (Manual) Basophils % (Manual) Seg Neutrophils # Seg Neutrophils # Man Lymphocytes # (Manual) Monocytes # (Manual) Eosinophils # (Manual) Basophils # (Manual) PT INR D-Dimer ABG pH 7.328 L POC ABG pCO2 POC ABG pO2 ABG pO2 68.4 L ABG HCO3 35.0 H ABG O2 Saturation 93.9 L ABG Base Excess 6.8 H ABG Hemoglobin 12.7 L ABG Oxyhemoglobin ABG Potassium ABG Glucose Oxyhemoglobin 91.9 L Carboxyhemoglobin Sodium Potassium Chloride Carbon Dioxide BUN Creatinine Glucose POC Glucose 187 H 163 H Calcium Ferritin Total Bilirubin Alkaline Phosphatase Lactate Dehydrogenase Total Creatine Kinase CK-MB (CK-2) Rel Index Troponin T C-Reactive Protein Total Protein Albumin Prealbumin LDL Cholesterol Direct HDL Cholesterol Arterial Blood Glucose Arterial Blood Ionized Calcium Urine WBC (Auto) 03/04/20 03/04/20 03/05/20 18:15 21:30 06:02 WBC RBC Hgb Hct MCV MCH RDW Plt Count Lymph % (Auto) [place] % (Auto) Lymph # (Auto) [place] # (Auto) Seg Neutrophils % Seg Neuts % (Manual) Lymphocytes % (Manual) Monocytes % (Manual) Basophils % (Manual) Seg Neutrophils # Seg Neutrophils # Man Lymphocytes # (Manual) Monocytes # (Manual) Eosinophils # (Manual) Basophils # (Manual) PT INR D-Dimer ABG pH 7.297 L POC ABG pCO2 POC ABG pO2 ABG pO2 ABG HCO3 41.0 H ABG O2 Saturation ABG Base Excess 11.0 H ABG Hemoglobin 13.1 L ABG Oxyhemoglobin ABG Potassium ABG Glucose Oxyhemoglobin 94.5 L Carboxyhemoglobin Sodium Potassium Chloride Carbon Dioxide BUN Creatinine Glucose POC Glucose 192 H 127 H Calcium Ferritin Total Bilirubin Alkaline Phosphatase Lactate Dehydrogenase Total Creatine Kinase CK-MB (CK-2) Rel Index Troponin T C-Reactive Protein Total Protein Albumin Prealbumin LDL Cholesterol Direct HDL Cholesterol Arterial Blood Glucose Arterial Blood Ionized Calcium Urine WBC (Auto) 03/05/20 03/05/20 03/06/20 12:09 16:42 00:24 WBC RBC Hgb Hct MCV MCH RDW Plt Count Lymph % (Auto) [place] % (Auto) Lymph # (Auto) [place] # (Auto) Seg Neutrophils % Seg Neuts % (Manual) Lymphocytes % (Manual) Monocytes % (Manual) Basophils % (Manual) Seg Neutrophils # Seg Neutrophils # Man Lymphocytes # (Manual) Monocytes # (Manual) Eosinophils # (Manual) Basophils # (Manual) PT INR D-Dimer ABG pH POC ABG pCO2 POC ABG pO2 ABG pO2 ABG HCO3 ABG O2 Saturation ABG Base Excess ABG Hemoglobin ABG Oxyhemoglobin ABG Potassium ABG Glucose Oxyhemoglobin Carboxyhemoglobin Sodium Potassium Chloride Carbon Dioxide BUN Creatinine Glucose POC Glucose 147 H 114 H 134 H Calcium Ferritin Total Bilirubin Alkaline Phosphatase Lactate Dehydrogenase Total Creatine Kinase CK-MB (CK-2) Rel Index Troponin T C-Reactive Protein Total Protein Albumin Prealbumin LDL Cholesterol Direct HDL Cholesterol Arterial Blood Glucose Arterial Blood Ionized Calcium Urine WBC (Auto) 03/06/20 03/06/20 03/06/20 04:34 05:53 06:08 WBC 25.4 H RBC Hgb 10.5 L Hct 32.7 L MCV MCH 27 L RDW 15.3 H Plt Count 634 H Lymph % (Auto) [place] % (Auto) Lymph # (Auto) [place] # (Auto) Seg Neutrophils % Seg Neuts % (Manual) 88.0 H Lymphocytes % (Manual) 2.0 L Monocytes % (Manual) 8.0 H Basophils % (Manual) Seg Neutrophils # Seg Neutrophils # Man 22.4 H Lymphocytes # (Manual) 0.5 L Monocytes # (Manual) 2.0 H Eosinophils # (Manual) Basophils # (Manual) PT INR D-Dimer ABG pH POC ABG pCO2 POC ABG pO2 ABG pO2 ABG HCO3 37.9 H ABG O2 Saturation ABG Base Excess 11.4 H ABG Hemoglobin 10.6 L ABG Oxyhemoglobin ABG Potassium ABG Glucose Oxyhemoglobin 94.7 L Carboxyhemoglobin Sodium Potassium Chloride Carbon Dioxide BUN Creatinine Glucose POC Glucose 135 H Calcium Ferritin Total Bilirubin Alkaline Phosphatase Lactate Dehydrogenase Total Creatine Kinase CK-MB (CK-2) Rel Index Troponin T C-Reactive Protein Total Protein Albumin Prealbumin LDL Cholesterol Direct HDL Cholesterol Arterial Blood Glucose Arterial Blood Ionized Calcium Urine WBC (Auto) 03/06/20 03/06/20 03/06/20 06:08 12:19 19:10 WBC RBC Hgb Hct MCV MCH RDW Plt Count Lymph % (Auto) [place] % (Auto) Lymph # (Auto) [place] # (Auto) Seg Neutrophils % Seg Neuts % (Manual) Lymphocytes % (Manual) Monocytes % (Manual) Basophils % (Manual) Seg Neutrophils # Seg Neutrophils # Man Lymphocytes # (Manual) Monocytes # (Manual) Eosinophils # (Manual) Basophils # (Manual) PT INR D-Dimer ABG pH POC ABG pCO2 POC ABG pO2 ABG pO2 ABG HCO3 ABG O2 Saturation ABG Base Excess ABG Hemoglobin ABG Oxyhemoglobin ABG Potassium ABG Glucose Oxyhemoglobin Carboxyhemoglobin Sodium 150 H D Potassium Chloride Carbon Dioxide 39 H D BUN 23 H Creatinine < 0.2 L Glucose 144 H POC Glucose 169 H 152 H Calcium Ferritin Total Bilirubin Alkaline Phosphatase Lactate Dehydrogenase Total Creatine Kinase CK-MB (CK-2) Rel Index Troponin T C-Reactive Protein Total Protein Albumin 3.3 L Prealbumin LDL Cholesterol Direct HDL Cholesterol Arterial Blood Glucose Arterial Blood Ionized Calcium Urine WBC (Auto) 03/06/20 03/07/20 03/07/20 23:58 04:25 04:25 WBC 22.1 H RBC Hgb 10.9 L Hct 32.9 L MCV MCH RDW 15.5 H Plt Count 739 H Lymph % (Auto) 7.8 L [place] % (Auto) Lymph # (Auto) [place] # (Auto) 1.3 H Seg Neutrophils % 85.5 H Seg Neuts % (Manual) Lymphocytes % (Manual) Monocytes % (Manual) Basophils % (Manual) Seg Neutrophils # 18.9 H Seg Neutrophils # Man Lymphocytes # (Manual) Monocytes # (Manual) Eosinophils # (Manual) Basophils # (Manual) PT INR D-Dimer ABG pH POC ABG pCO2 POC ABG pO2 ABG pO2 ABG HCO3 ABG O2 Saturation ABG Base Excess ABG Hemoglobin ABG Oxyhemoglobin ABG Potassium ABG Glucose Oxyhemoglobin Carboxyhemoglobin Sodium 146 H Potassium Chloride Carbon Dioxide 37 H BUN Creatinine < 0.2 L Glucose 118 H POC Glucose 111 H Calcium Ferritin Total Bilirubin Alkaline Phosphatase Lactate Dehydrogenase Total Creatine Kinase CK-MB (CK-2) Rel Index Troponin T C-Reactive Protein Total Protein Albumin 3.7 L Prealbumin LDL Cholesterol Direct HDL Cholesterol Arterial Blood Glucose Arterial Blood Ionized Calcium Urine WBC (Auto) 03/07/20 03/07/20 03/07/20 05:20 17:45 23:32 WBC RBC Hgb Hct MCV MCH RDW Plt Count Lymph % (Auto) [place] % (Auto) Lymph # (Auto) [place] # (Auto) Seg Neutrophils % Seg Neuts % (Manual) Lymphocytes % (Manual) Monocytes % (Manual) Basophils % (Manual) Seg Neutrophils # Seg Neutrophils # Man Lymphocytes # (Manual) Monocytes # (Manual) Eosinophils # (Manual) Basophils # (Manual) PT INR D-Dimer ABG pH POC ABG pCO2 POC ABG pO2 ABG pO2 ABG HCO3 ABG O2 Saturation ABG Base Excess ABG Hemoglobin ABG Oxyhemoglobin ABG Potassium ABG Glucose Oxyhemoglobin Carboxyhemoglobin Sodium Potassium Chloride Carbon Dioxide BUN Creatinine Glucose POC Glucose 113 H 124 H 210 H Calcium Ferritin Total Bilirubin Alkaline Phosphatase Lactate Dehydrogenase Total Creatine Kinase CK-MB (CK-2) Rel Index Troponin T C-Reactive Protein Total Protein Albumin Prealbumin LDL Cholesterol Direct HDL Cholesterol Arterial Blood Glucose Arterial Blood Ionized Calcium Urine WBC (Auto) 11/03/1703/08/20 03/08/20 05:35 06:43 06:43 WBC 28.9 H RBC 3.53 L Hgb 9.7 L Hct 30.3 L MCV MCH RDW 15.6 H Plt Count 578 H Lymph % (Auto) [place] % (Auto) Lymph # (Auto) [place] # (Auto) Seg Neutrophils % Seg Neuts % (Manual) 93.0 H Lymphocytes % (Manual) 4.0 L Monocytes % (Manual) Basophils % (Manual) Seg Neutrophils # Seg Neutrophils # Man 26.9 H Lymphocytes # (Manual) Monocytes # (Manual) Eosinophils # (Manual) Basophils # (Manual) PT INR D-Dimer ABG pH POC ABG pCO2 POC ABG pO2 ABG pO2 ABG HCO3 ABG O2 Saturation ABG Base Excess ABG Hemoglobin ABG Oxyhemoglobin ABG Potassium ABG Glucose Oxyhemoglobin Carboxyhemoglobin Sodium 146 H Potassium Chloride Carbon Dioxide 35 H BUN 34 H Creatinine 0.3 L D Glucose 125 H POC Glucose 147 H Calcium Ferritin Total Bilirubin Alkaline Phosphatase Lactate Dehydrogenase Total Creatine Kinase CK-MB (CK-2) Rel Index Troponin T C-Reactive Protein Total Protein 5.9 L Albumin 3.2 L Prealbumin LDL Cholesterol Direct HDL Cholesterol Arterial Blood Glucose Arterial Blood Ionized Calcium Urine WBC (Auto) 03/08/20 03/08/20 03/08/20 08:57 11:14 12:34 WBC RBC Hgb Hct MCV MCH RDW Plt Count Lymph % (Auto) [place] % (Auto) Lymph # (Auto) [place] # (Auto) Seg Neutrophils % Seg Neuts % (Manual) Lymphocytes % (Manual) Monocytes % (Manual) Basophils % (Manual) Seg Neutrophils # Seg Neutrophils # Man Lymphocytes # (Manual) Monocytes # (Manual) Eosinophils # (Manual) Basophils # (Manual) PT INR D-Dimer ABG pH POC ABG pCO2 63.1 H POC ABG pO2 ABG pO2 ABG HCO3 ABG O2 Saturation ABG Base Excess ABG Hemoglobin 10.9 L ABG Oxyhemoglobin ABG Potassium ABG Glucose 176 H Oxyhemoglobin Carboxyhemoglobin Sodium Potassium Chloride Carbon Dioxide BUN Creatinine Glucose POC Glucose 171 H Calcium Ferritin Total Bilirubin Alkaline Phosphatase Lactate Dehydrogenase Total Creatine Kinase CK-MB (CK-2) Rel Index Troponin T C-Reactive Protein Total Protein Albumin Prealbumin LDL Cholesterol Direct HDL Cholesterol Arterial Blood Glucose 176 H Arterial Blood Ionized Calcium 4.5 L Urine WBC (Auto) 10.0 H 03/08/20 03/08/20 03/09/20 18:02 23:43 05:49 WBC RBC Hgb Hct MCV MCH RDW Plt Count Lymph % (Auto) [place] % (Auto) Lymph # (Auto) [place] # (Auto) Seg Neutrophils % Seg Neuts % (Manual) Lymphocytes % (Manual) Monocytes % (Manual) Basophils % (Manual) Seg Neutrophils # Seg Neutrophils # Man Lymphocytes # (Manual) Monocytes # (Manual) Eosinophils # (Manual) Basophils # (Manual) PT INR D-Dimer ABG pH POC ABG pCO2 POC ABG pO2 ABG pO2 ABG HCO3 ABG O2 Saturation ABG Base Excess ABG Hemoglobin ABG Oxyhemoglobin ABG Potassium ABG Glucose Oxyhemoglobin Carboxyhemoglobin Sodium Potassium Chloride Carbon Dioxide BUN Creatinine Glucose POC Glucose 157 H 134 H 163 H Calcium Ferritin Total Bilirubin Alkaline Phosphatase Lactate Dehydrogenase Total Creatine Kinase CK-MB (CK-2) Rel Index Troponin T C-Reactive Protein Total Protein Albumin Prealbumin LDL Cholesterol Direct HDL Cholesterol Arterial Blood Glucose Arterial Blood Ionized Calcium Urine WBC (Auto) 03/09/20 03/09/20 03/09/20 08:35 08:35 12:11 WBC 23.4 H RBC 3.36 L Hgb 9.3 L Hct 28.8 L MCV MCH RDW 15.9 H Plt Count 521 H Lymph % (Auto) [place] % (Auto) Lymph # (Auto) [place] # (Auto) Seg Neutrophils % Seg Neuts % (Manual) 87.0 H Lymphocytes % (Manual) 4.0 L Monocytes % (Manual) 9.0 H Basophils % (Manual) Seg Neutrophils # Seg Neutrophils # Man 20.4 H Lymphocytes # (Manual) 0.9 L Monocytes # (Manual) 2.1 H Eosinophils # (Manual) Basophils # (Manual) PT INR D-Dimer ABG pH POC ABG pCO2 POC ABG pO2 ABG pO2 ABG HCO3 ABG O2 Saturation ABG Base Excess ABG Hemoglobin ABG Oxyhemoglobin ABG Potassium ABG Glucose Oxyhemoglobin Carboxyhemoglobin Sodium 147 H Potassium Chloride Carbon Dioxide 37 H BUN 63 H Creatinine Glucose 154 H POC Glucose 128 H Calcium Ferritin Total Bilirubin Alkaline Phosphatase Lactate Dehydrogenase Total Creatine Kinase CK-MB (CK-2) Rel Index Troponin T C-Reactive Protein Total Protein Albumin Prealbumin LDL Cholesterol Direct HDL Cholesterol Arterial Blood Glucose Arterial Blood Ionized Calcium Urine WBC (Auto) 03/09/20 03/10/20 03/10/20 17:51 00:25 05:41 WBC RBC Hgb Hct MCV MCH RDW Plt Count Lymph % (Auto) [place] % (Auto) Lymph # (Auto) [place] # (Auto) Seg Neutrophils % Seg Neuts % (Manual) Lymphocytes % (Manual) Monocytes % (Manual) Basophils % (Manual) Seg Neutrophils # Seg Neutrophils # Man Lymphocytes # (Manual) Monocytes # (Manual) Eosinophils # (Manual) Basophils # (Manual) PT INR D-Dimer ABG pH POC ABG pCO2 POC ABG pO2 ABG pO2 ABG HCO3 ABG O2 Saturation ABG Base Excess ABG Hemoglobin ABG Oxyhemoglobin ABG Potassium ABG Glucose Oxyhemoglobin Carboxyhemoglobin Sodium Potassium Chloride Carbon Dioxide BUN Creatinine Glucose POC Glucose 127 H 128 H 153 H Calcium Ferritin Total Bilirubin Alkaline Phosphatase Lactate Dehydrogenase Total Creatine Kinase CK-MB (CK-2) Rel Index Troponin T C-Reactive Protein Total Protein Albumin Prealbumin LDL Cholesterol Direct HDL Cholesterol Arterial Blood Glucose Arterial Blood Ionized Calcium Urine WBC (Auto) 03/10/20 03/10/20 03/10/20 06:14 06:14 12:02 WBC 18.3 H RBC 3.45 L Hgb 9.5 L Hct 29.5 L MCV MCH RDW 16.1 H Plt Count 494 H Lymph % (Auto) [place] % (Auto) Lymph # (Auto) [place] # (Auto) Seg Neutrophils % Seg Neuts % (Manual) 95.0 H Lymphocytes % (Manual) 1.0 L Monocytes % (Manual) Basophils % (Manual) Seg Neutrophils # Seg Neutrophils # Man 17.4 H Lymphocytes # (Manual) 0.2 L Monocytes # (Manual) Eosinophils # (Manual) Basophils # (Manual) PT INR D-Dimer ABG pH POC ABG pCO2 POC ABG pO2 ABG pO2 ABG HCO3 ABG O2 Saturation ABG Base Excess ABG Hemoglobin ABG Oxyhemoglobin ABG Potassium ABG Glucose Oxyhemoglobin Carboxyhemoglobin Sodium 149 H Potassium Chloride Carbon Dioxide 35 H BUN 34 H Creatinine 0.2 L D Glucose 177 H POC Glucose 151 H Calcium Ferritin Total Bilirubin Alkaline Phosphatase Lactate Dehydrogenase Total Creatine Kinase CK-MB (CK-2) Rel Index Troponin T C-Reactive Protein Total Protein Albumin Prealbumin LDL Cholesterol Direct HDL Cholesterol Arterial Blood Glucose Arterial Blood Ionized Calcium Urine WBC (Auto) 03/10/20 03/10/2020 17:41 23:53 05:02 WBC RBC Hgb Hct MCV MCH RDW Plt Count Lymph % (Auto) [place] % (Auto) Lymph # (Auto) [place] # (Auto) Seg Neutrophils % Seg Neuts % (Manual) Lymphocytes % (Manual) Monocytes % (Manual) Basophils % (Manual) Seg Neutrophils # Seg Neutrophils # Man Lymphocytes # (Manual) Monocytes # (Manual) Eosinophils # (Manual) Basophils # (Manual) PT INR D-Dimer ABG pH POC ABG pCO2 POC ABG pO2 ABG pO2 ABG HCO3 ABG O2 Saturation ABG Base Excess ABG Hemoglobin ABG Oxyhemoglobin ABG Potassium ABG Glucose Oxyhemoglobin Carboxyhemoglobin Sodium Potassium Chloride Carbon Dioxide BUN Creatinine Glucose POC Glucose 168 H 142 H 146 H Calcium Ferritin Total Bilirubin Alkaline Phosphatase Lactate Dehydrogenase Total Creatine Kinase CK-MB (CK-2) Rel Index Troponin T C-Reactive Protein Total Protein Albumin Prealbumin LDL Cholesterol Direct HDL Cholesterol Arterial Blood Glucose Arterial Blood Ionized Calcium Urine WBC (Auto) 03/11/20 03/11/20 03/11/20 11:30 14:01 14:01 WBC 19.7 H RBC 3.04 L Hgb 8.7 L Hct 25.8 L MCV MCH RDW 15.6 H Plt Count Lymph % (Auto) [place] % (Auto) Lymph # (Auto) [place] # (Auto) Seg Neutrophils % Seg Neuts % (Manual) Lymphocytes % (Manual) Monocytes % (Manual) Basophils % (Manual) Seg Neutrophils # Seg Neutrophils # Man Lymphocytes # (Manual) Monocytes # (Manual) Eosinophils # (Manual) Basophils # (Manual) PT INR D-Dimer ABG pH POC ABG pCO2 POC ABG pO2 ABG pO2 ABG HCO3 ABG O2 Saturation ABG Base Excess ABG Hemoglobin ABG Oxyhemoglobin ABG Potassium ABG Glucose Oxyhemoglobin Carboxyhemoglobin Sodium 151 H Potassium Chloride Carbon Dioxide 37 H BUN Creatinine < 0.2 L Glucose 171 H POC Glucose 248 H Calcium Ferritin Total Bilirubin Alkaline Phosphatase Lactate Dehydrogenase Total Creatine Kinase CK-MB (CK-2) Rel Index Troponin T C-Reactive Protein Total Protein Albumin Prealbumin LDL Cholesterol Direct HDL Cholesterol Arterial Blood Glucose Arterial Blood Ionized Calcium Urine WBC (Auto) 03/11/20 03/11/20 03/12/20 17:09 23:52 04:39 WBC 19.9 H RBC 3.16 L Hgb 8.9 L Hct 27.5 L MCV MCH RDW 15.7 H Plt Count Lymph % (Auto) 6.8 L [place] % (Auto) Lymph # (Auto) [place] # (Auto) 1.2 H Seg Neutrophils % 86.0 H Seg Neuts % (Manual) Lymphocytes % (Manual) Monocytes % (Manual) Basophils % (Manual) Seg Neutrophils # 17.1 H Seg Neutrophils # Man Lymphocytes # (Manual) Monocytes # (Manual) Eosinophils # (Manual) Basophils # (Manual) PT INR D-Dimer ABG pH POC ABG pCO2 POC ABG pO2 ABG pO2 ABG HCO3 ABG O2 Saturation ABG Base Excess ABG Hemoglobin ABG Oxyhemoglobin ABG Potassium ABG Glucose Oxyhemoglobin Carboxyhemoglobin Sodium Potassium Chloride Carbon Dioxide BUN Creatinine Glucose POC Glucose 124 H 131 H Calcium Ferritin Total Bilirubin Alkaline Phosphatase Lactate Dehydrogenase Total Creatine Kinase CK-MB (CK-2) Rel Index Troponin T C-Reactive Protein Total Protein Albumin Prealbumin LDL Cholesterol Direct HDL Cholesterol Arterial Blood Glucose Arterial Blood Ionized Calcium Urine WBC (Auto) 03/12/20 03/12/20 03/12/20 04:39 05:28 11:34 WBC RBC Hgb Hct MCV MCH RDW Plt Count Lymph % (Auto) [place] % (Auto) Lymph # (Auto) [place] # (Auto) Seg Neutrophils % Seg Neuts % (Manual) Lymphocytes % (Manual) Monocytes % (Manual) Basophils % (Manual) Seg Neutrophils # Seg Neutrophils # Man Lymphocytes # (Manual) Monocytes # (Manual) Eosinophils # (Manual) Basophils # (Manual) PT INR D-Dimer ABG pH POC ABG pCO2 POC ABG pO2 ABG pO2 ABG HCO3 ABG O2 Saturation ABG Base Excess ABG Hemoglobin ABG Oxyhemoglobin ABG Potassium ABG Glucose Oxyhemoglobin Carboxyhemoglobin Sodium 147 H Potassium Chloride Carbon Dioxide 40 H BUN Creatinine < 0.2 L Glucose 175 H POC Glucose 167 H 144 H Calcium Ferritin Total Bilirubin Alkaline Phosphatase Lactate Dehydrogenase Total Creatine Kinase CK-MB (CK-2) Rel Index Troponin T C-Reactive Protein Total Protein Albumin Prealbumin LDL Cholesterol Direct HDL Cholesterol Arterial Blood Glucose Arterial Blood Ionized Calcium Urine WBC (Auto) 03/12/20 03/12/20 03/13/20 17:32 23:57 05:57 WBC RBC Hgb Hct MCV MCH RDW Plt Count Lymph % (Auto) [place] % (Auto) Lymph # (Auto) [place] # (Auto) Seg Neutrophils % Seg Neuts % (Manual) Lymphocytes % (Manual) Monocytes % (Manual) Basophils % (Manual) Seg Neutrophils # Seg Neutrophils # Man Lymphocytes # (Manual) Monocytes # (Manual) Eosinophils # (Manual) Basophils # (Manual) PT INR D-Dimer ABG pH POC ABG pCO2 POC ABG pO2 ABG pO2 ABG HCO3 ABG O2 Saturation ABG Base Excess ABG Hemoglobin ABG Oxyhemoglobin ABG Potassium ABG Glucose Oxyhemoglobin Carboxyhemoglobin Sodium Potassium Chloride Carbon Dioxide BUN Creatinine Glucose POC Glucose 141 H 137 H 161 H Calcium Ferritin Total Bilirubin Alkaline Phosphatase Lactate Dehydrogenase Total Creatine Kinase CK-MB (CK-2) Rel Index Troponin T C-Reactive Protein Total Protein Albumin Prealbumin LDL Cholesterol Direct HDL Cholesterol Arterial Blood Glucose Arterial Blood Ionized Calcium Urine WBC (Auto) 03/13/20 03/13/20 03/13/20 12:28 14:14 18:39 WBC RBC Hgb Hct MCV MCH RDW Plt Count Lymph % (Auto) [place] % (Auto) Lymph # (Auto) [place] # (Auto) Seg Neutrophils % Seg Neuts % (Manual) Lymphocytes % (Manual) Monocytes % (Manual) Basophils % (Manual) Seg Neutrophils # Seg Neutrophils # Man Lymphocytes # (Manual) Monocytes # (Manual) Eosinophils # (Manual) Basophils # (Manual) PT INR D-Dimer ABG pH POC ABG pCO2 POC ABG pO2 ABG pO2 ABG HCO3 ABG O2 Saturation ABG Base Excess ABG Hemoglobin ABG Oxyhemoglobin ABG Potassium ABG Glucose Oxyhemoglobin Carboxyhemoglobin Sodium Potassium Chloride Carbon Dioxide 39 H BUN Creatinine < 0.2 L Glucose 129 H POC Glucose 130 H 125 H Calcium Ferritin Total Bilirubin Alkaline Phosphatase Lactate Dehydrogenase Total Creatine Kinase CK-MB (CK-2) Rel Index Troponin T C-Reactive Protein Total Protein Albumin Prealbumin LDL Cholesterol Direct HDL Cholesterol Arterial Blood Glucose Arterial Blood Ionized Calcium Urine WBC (Auto) 03/13/20 03/14/20 03/14/20 23:33 05:24 08:07 WBC 16.8 H RBC 2.81 L Hgb 7.9 L Hct 23.9 L MCV MCH RDW 15.9 H Plt Count Lymph % (Auto) [place] % (Auto) Lymph # (Auto) [place] # (Auto) Seg Neutrophils % Seg Neuts % (Manual) 84.0 H Lymphocytes % (Manual) 10.0 L Monocytes % (Manual) Basophils % (Manual) Seg Neutrophils # Seg Neutrophils # Man 14.1 H Lymphocytes # (Manual) Monocytes # (Manual) Eosinophils # (Manual) Basophils # (Manual) PT INR D-Dimer ABG pH POC ABG pCO2 POC ABG pO2 ABG pO2 ABG HCO3 ABG O2 Saturation ABG Base Excess ABG Hemoglobin ABG Oxyhemoglobin ABG Potassium ABG Glucose Oxyhemoglobin Carboxyhemoglobin Sodium Potassium Chloride Carbon Dioxide BUN Creatinine Glucose POC Glucose 146 H 125 H Calcium Ferritin Total Bilirubin Alkaline Phosphatase Lactate Dehydrogenase Total Creatine Kinase CK-MB (CK-2) Rel Index Troponin T C-Reactive Protein Total Protein Albumin Prealbumin LDL Cholesterol Direct HDL Cholesterol Arterial Blood Glucose Arterial Blood Ionized Calcium Urine WBC (Auto) 03/14/20 03/14/20 03/14/20 08:07 12:21 18:26 WBC RBC Hgb Hct MCV MCH RDW Plt Count Lymph % (Auto) [place] % (Auto) Lymph # (Auto) [place] # (Auto) Seg Neutrophils % Seg Neuts % (Manual) Lymphocytes % (Manual) Monocytes % (Manual) Basophils % (Manual) Seg Neutrophils # Seg Neutrophils # Man Lymphocytes # (Manual) Monocytes # (Manual) Eosinophils # (Manual) Basophils # (Manual) PT INR D-Dimer ABG pH POC ABG pCO2 POC ABG pO2 ABG pO2 ABG HCO3 ABG O2 Saturation ABG Base Excess ABG Hemoglobin ABG Oxyhemoglobin ABG Potassium ABG Glucose Oxyhemoglobin Carboxyhemoglobin Sodium Potassium Chloride 97.0 L Carbon Dioxide 37 H BUN Creatinine < 0.2 L Glucose 129 H POC Glucose 109 H 142 H Calcium 8.3 L Ferritin Total Bilirubin Alkaline Phosphatase Lactate Dehydrogenase Total Creatine Kinase CK-MB (CK-2) Rel Index Troponin T C-Reactive Protein Total Protein Albumin Prealbumin LDL Cholesterol Direct HDL Cholesterol Arterial Blood Glucose Arterial Blood Ionized Calcium Urine WBC (Auto) 03/14/20 03/15/20 03/15/20 23:57 05:46 08:06 WBC 19.7 H RBC 3.29 L Hgb 9.1 L Hct 28.0 L MCV MCH RDW 15.9 H Plt Count Lymph % (Auto) [place] % (Auto) Lymph # (Auto) [place] # (Auto) Seg Neutrophils % Seg Neuts % (Manual) Lymphocytes % (Manual) Monocytes % (Manual) Basophils % (Manual) Seg Neutrophils # Seg Neutrophils # Man Lymphocytes # (Manual) Monocytes # (Manual) Eosinophils # (Manual) Basophils # (Manual) PT INR D-Dimer ABG pH POC ABG pCO2 POC ABG pO2 ABG pO2 ABG HCO3 ABG O2 Saturation ABG Base Excess ABG Hemoglobin ABG Oxyhemoglobin ABG Potassium ABG Glucose Oxyhemoglobin Carboxyhemoglobin Sodium Potassium Chloride Carbon Dioxide BUN Creatinine Glucose POC Glucose 157 H 118 H Calcium Ferritin Total Bilirubin Alkaline Phosphatase Lactate Dehydrogenase Total Creatine Kinase CK-MB (CK-2) Rel Index Troponin T C-Reactive Protein Total Protein Albumin Prealbumin LDL Cholesterol Direct HDL Cholesterol Arterial Blood Glucose Arterial Blood Ionized Calcium Urine WBC (Auto) 03/15/20 03/15/20 03/15/20 08:06 12:44 18:09 WBC RBC Hgb Hct MCV MCH RDW Plt Count Lymph % (Auto) [place] % (Auto) Lymph # (Auto) [place] # (Auto) Seg Neutrophils % Seg Neuts % (Manual) Lymphocytes % (Manual) Monocytes % (Manual) Basophils % (Manual) Seg Neutrophils # Seg Neutrophils # Man Lymphocytes # (Manual) Monocytes # (Manual) Eosinophils # (Manual) Basophils # (Manual) PT INR D-Dimer ABG pH POC ABG pCO2 POC ABG pO2 ABG pO2 ABG HCO3 ABG O2 Saturation ABG Base Excess ABG Hemoglobin ABG Oxyhemoglobin ABG Potassium ABG Glucose Oxyhemoglobin Carboxyhemoglobin Sodium 136 L Potassium Chloride 93.6 L Carbon Dioxide 37 H BUN Creatinine < 0.2 L Glucose 132 H POC Glucose 151 H 164 H Calcium Ferritin Total Bilirubin Alkaline Phosphatase Lactate Dehydrogenase Total Creatine Kinase CK-MB (CK-2) Rel Index Troponin T C-Reactive Protein Total Protein Albumin Prealbumin LDL Cholesterol Direct HDL Cholesterol Arterial Blood Glucose Arterial Blood Ionized Calcium Urine WBC (Auto) 03/15/20 03/16/20 03/16/20 23:26 05:39 11:58 WBC RBC Hgb Hct MCV MCH RDW Plt Count Lymph % (Auto) [place] % (Auto) Lymph # (Auto) [place] # (Auto) Seg Neutrophils % Seg Neuts % (Manual) Lymphocytes % (Manual) Monocytes % (Manual) Basophils % (Manual) Seg Neutrophils # Seg Neutrophils # Man Lymphocytes # (Manual) Monocytes # (Manual) Eosinophils # (Manual) Basophils # (Manual) PT INR D-Dimer ABG pH POC ABG pCO2 POC ABG pO2 ABG pO2 ABG HCO3 ABG O2 Saturation ABG Base Excess ABG Hemoglobin ABG Oxyhemoglobin ABG Potassium ABG Glucose Oxyhemoglobin Carboxyhemoglobin Sodium Potassium Chloride Carbon Dioxide BUN Creatinine Glucose POC Glucose 136 H 116 H 109 H Calcium Ferritin Total Bilirubin Alkaline Phosphatase Lactate Dehydrogenase Total Creatine Kinase CK-MB (CK-2) Rel Index Troponin T C-Reactive Protein Total Protein Albumin Prealbumin LDL Cholesterol Direct HDL Cholesterol Arterial Blood Glucose Arterial Blood Ionized Calcium Urine WBC (Auto) 03/16/20 03/17/20 03/17/20 23:56 04:40 04:40 WBC 18.0 H RBC 3.33 L Hgb 9.5 L Hct 28.8 L MCV MCH RDW 16.4 H Plt Count 499 H Lymph % (Auto) [place] % (Auto) Lymph # (Auto) [place] # (Auto) Seg Neutrophils % Seg Neuts % (Manual) 82.0 H Lymphocytes % (Manual) 8.0 L Monocytes % (Manual) Basophils % (Manual) Seg Neutrophils # Seg Neutrophils # Man 14.8 H Lymphocytes # (Manual) Monocytes # (Manual) 1.3 H Eosinophils # (Manual) Basophils # (Manual) 0.2 H PT INR D-Dimer ABG pH POC ABG pCO2 POC ABG pO2 ABG pO2 ABG HCO3 ABG O2 Saturation ABG Base Excess ABG Hemoglobin ABG Oxyhemoglobin ABG Potassium ABG Glucose Oxyhemoglobin Carboxyhemoglobin Sodium Potassium Chloride 97.7 L Carbon Dioxide 32 H BUN Creatinine < 0.2 L Glucose 114 H POC Glucose 131 H Calcium Ferritin Total Bilirubin Alkaline Phosphatase Lactate Dehydrogenase Total Creatine Kinase CK-MB (CK-2) Rel Index Troponin T C-Reactive Protein Total Protein Albumin Prealbumin LDL Cholesterol Direct HDL Cholesterol Arterial Blood Glucose Arterial Blood Ionized Calcium Urine WBC (Auto) 03/18/20 03/18/20 03/18/20 00:21 05:21 11:55 WBC RBC Hgb Hct MCV MCH RDW Plt Count Lymph % (Auto) [place] % (Auto) Lymph # (Auto) [place] # (Auto) Seg Neutrophils % Seg Neuts % (Manual) Lymphocytes % (Manual) Monocytes % (Manual) Basophils % (Manual) Seg Neutrophils # Seg Neutrophils # Man Lymphocytes # (Manual) Monocytes # (Manual) Eosinophils # (Manual) Basophils # (Manual) PT INR D-Dimer ABG pH POC ABG pCO2 POC ABG pO2 ABG pO2 ABG HCO3 ABG O2 Saturation ABG Base Excess ABG Hemoglobin ABG Oxyhemoglobin ABG Potassium ABG Glucose Oxyhemoglobin Carboxyhemoglobin Sodium Potassium Chloride Carbon Dioxide BUN Creatinine Glucose POC Glucose 124 H 138 H 119 H Calcium Ferritin Total Bilirubin Alkaline Phosphatase Lactate Dehydrogenase Total Creatine Kinase CK-MB (CK-2) Rel Index Troponin T C-Reactive Protein Total Protein Albumin Prealbumin LDL Cholesterol Direct HDL Cholesterol Arterial Blood Glucose Arterial Blood Ionized Calcium Urine WBC (Auto) 03/18/20 03/18/20 03/19/20 17:03 23:58 05:24 WBC RBC Hgb Hct MCV MCH RDW Plt Count Lymph % (Auto) [place] % (Auto) Lymph # (Auto) [place] # (Auto) Seg Neutrophils % Seg Neuts % (Manual) Lymphocytes % (Manual) Monocytes % (Manual) Basophils % (Manual) Seg Neutrophils # Seg Neutrophils # Man Lymphocytes # (Manual) Monocytes # (Manual) Eosinophils # (Manual) Basophils # (Manual) PT INR D-Dimer ABG pH POC ABG pCO2 POC ABG pO2 ABG pO2 ABG HCO3 ABG O2 Saturation ABG Base Excess ABG Hemoglobin ABG Oxyhemoglobin ABG Potassium ABG Glucose Oxyhemoglobin Carboxyhemoglobin Sodium Potassium Chloride Carbon Dioxide BUN Creatinine Glucose POC Glucose 128 H 128 H 115 H Calcium Ferritin Total Bilirubin Alkaline Phosphatase Lactate Dehydrogenase Total Creatine Kinase CK-MB (CK-2) Rel Index Troponin T C-Reactive Protein Total Protein Albumin Prealbumin LDL Cholesterol Direct HDL Cholesterol Arterial Blood Glucose Arterial Blood Ionized Calcium Urine WBC (Auto) 03/19/20 03/19/20 03/19/20 08:05 08:05 11:56 WBC 16.8 H RBC 3.36 L Hgb 9.4 L Hct 28.8 L MCV MCH RDW 17.4 H Plt Count 567 H Lymph % (Auto) 7.8 L [place] % (Auto) Lymph # (Auto) [place] # (Auto) 1.2 H Seg Neutrophils % 83.5 H Seg Neuts % (Manual) Lymphocytes % (Manual) Monocytes % (Manual) Basophils % (Manual) Seg Neutrophils # 14.1 H Seg Neutrophils # Man Lymphocytes # (Manual) Monocytes # (Manual) Eosinophils # (Manual) Basophils # (Manual) PT INR D-Dimer ABG pH POC ABG pCO2 POC ABG pO2 ABG pO2 ABG HCO3 ABG O2 Saturation ABG Base Excess ABG Hemoglobin ABG Oxyhemoglobin ABG Potassium ABG Glucose Oxyhemoglobin Carboxyhemoglobin Sodium Potassium Chloride Carbon Dioxide 36 H BUN Creatinine < 0.2 L Glucose 135 H POC Glucose 128 H Calcium Ferritin Total Bilirubin Alkaline Phosphatase Lactate Dehydrogenase Total Creatine Kinase CK-MB (CK-2) Rel Index Troponin T C-Reactive Protein Total Protein Albumin Prealbumin LDL Cholesterol Direct HDL Cholesterol Arterial Blood Glucose Arterial Blood Ionized Calcium Urine WBC (Auto) 03/19/20 03/20/20 03/20/20 23:59 05:12 16:52 WBC RBC Hgb Hct MCV MCH RDW Plt Count Lymph % (Auto) [place] % (Auto) Lymph # (Auto) [place] # (Auto) Seg Neutrophils % Seg Neuts % (Manual) Lymphocytes % (Manual) Monocytes % (Manual) Basophils % (Manual) Seg Neutrophils # Seg Neutrophils # Man Lymphocytes # (Manual) Monocytes # (Manual) Eosinophils # (Manual) Basophils # (Manual) PT INR D-Dimer ABG pH POC ABG pCO2 POC ABG pO2 ABG pO2 ABG HCO3 ABG O2 Saturation ABG Base Excess ABG Hemoglobin ABG Oxyhemoglobin ABG Potassium ABG Glucose Oxyhemoglobin Carboxyhemoglobin Sodium Potassium Chloride Carbon Dioxide BUN Creatinine Glucose POC Glucose 120 H 131 H 124 H Calcium Ferritin Total Bilirubin Alkaline Phosphatase Lactate Dehydrogenase Total Creatine Kinase CK-MB (CK-2) Rel Index Troponin T C-Reactive Protein Total Protein Albumin Prealbumin LDL Cholesterol Direct HDL Cholesterol Arterial Blood Glucose Arterial Blood Ionized Calcium Urine WBC (Auto) 03/20/20 03/21/20 03/21/20 23:35 04:50 07:35 WBC 15.2 H RBC 3.39 L Hgb 9.4 L Hct 29.4 L MCV MCH RDW 17.6 H Plt Count 518 H Lymph % (Auto) [place] % (Auto) Lymph # (Auto) [place] # (Auto) Seg Neutrophils % Seg Neuts % (Manual) 83.0 H Lymphocytes % (Manual) 10.0 L Monocytes % (Manual) Basophils % (Manual) 2.0 H Seg Neutrophils # Seg Neutrophils # Man 12.6 H Lymphocytes # (Manual) Monocytes # (Manual) Eosinophils # (Manual) Basophils # (Manual) 0.3 H PT INR D-Dimer ABG pH POC ABG pCO2 POC ABG pO2 ABG pO2 ABG HCO3 ABG O2 Saturation ABG Base Excess ABG Hemoglobin ABG Oxyhemoglobin ABG Potassium ABG Glucose Oxyhemoglobin Carboxyhemoglobin Sodium Potassium Chloride Carbon Dioxide BUN Creatinine Glucose POC Glucose 125 H 127 H Calcium Ferritin Total Bilirubin Alkaline Phosphatase Lactate Dehydrogenase Total Creatine Kinase CK-MB (CK-2) Rel Index Troponin T C-Reactive Protein Total Protein Albumin Prealbumin LDL Cholesterol Direct HDL Cholesterol Arterial Blood Glucose Arterial Blood Ionized Calcium Urine WBC (Auto) 03/21/20 03/21/20 03/21/20 07:35 11:45 17:22 WBC RBC Hgb Hct MCV MCH RDW Plt Count Lymph % (Auto) [place] % (Auto) Lymph # (Auto) [place] # (Auto) Seg Neutrophils % Seg Neuts % (Manual) Lymphocytes % (Manual) Monocytes % (Manual) Basophils % (Manual) Seg Neutrophils # Seg Neutrophils # Man Lymphocytes # (Manual) Monocytes # (Manual) Eosinophils # (Manual) Basophils # (Manual) PT INR D-Dimer ABG pH POC ABG pCO2 POC ABG pO2 ABG pO2 ABG HCO3 ABG O2 Saturation ABG Base Excess ABG Hemoglobin ABG Oxyhemoglobin ABG Potassium ABG Glucose Oxyhemoglobin Carboxyhemoglobin Sodium 136 L Potassium Chloride 97.7 L Carbon Dioxide 32 H BUN Creatinine < 0.2 L Glucose 103 H POC Glucose 126 H 120 H Calcium Ferritin Total Bilirubin Alkaline Phosphatase Lactate Dehydrogenase Total Creatine Kinase CK-MB (CK-2) Rel Index Troponin T C-Reactive Protein Total Protein Albumin Prealbumin LDL Cholesterol Direct HDL Cholesterol Arterial Blood Glucose Arterial Blood Ionized Calcium Urine WBC (Auto) 03/22/20 03/22/20 03/22/20 05:09 06:34 06:34 WBC 17.5 H RBC 3.52 L Hgb 10.0 L Hct 30.7 L MCV MCH RDW 17.5 H Plt Count 499 H Lymph % (Auto) [place] % (Auto) Lymph # (Auto) [place] # (Auto) Seg Neutrophils % Seg Neuts % (Manual) 80.0 H Lymphocytes % (Manual) 10.0 L Monocytes % (Manual) Basophils % (Manual) Seg Neutrophils # Seg Neutrophils # Man 14.0 H Lymphocytes # (Manual) Monocytes # (Manual) Eosinophils # (Manual) Basophils # (Manual) PT INR D-Dimer ABG pH POC ABG pCO2 POC ABG pO2 ABG pO2 ABG HCO3 ABG O2 Saturation ABG Base Excess ABG Hemoglobin ABG Oxyhemoglobin ABG Potassium ABG Glucose Oxyhemoglobin Carboxyhemoglobin Sodium Potassium Chloride 96.6 L Carbon Dioxide 38 H BUN Creatinine < 0.2 L Glucose 139 H POC Glucose 125 H Calcium Ferritin Total Bilirubin Alkaline Phosphatase Lactate Dehydrogenase Total Creatine Kinase CK-MB (CK-2) Rel Index Troponin T C-Reactive Protein Total Protein Albumin Prealbumin LDL Cholesterol Direct HDL Cholesterol Arterial Blood Glucose Arterial Blood Ionized Calcium Urine WBC (Auto) 03/22/20 03/22/20 03/22/20 11:45 18:00 23:32 WBC RBC Hgb Hct MCV MCH RDW Plt Count Lymph % (Auto) [place] % (Auto) Lymph # (Auto) [place] # (Auto) Seg Neutrophils % Seg Neuts % (Manual) Lymphocytes % (Manual) Monocytes % (Manual) Basophils % (Manual) Seg Neutrophils # Seg Neutrophils # Man Lymphocytes # (Manual) Monocytes # (Manual) Eosinophils # (Manual) Basophils # (Manual) PT INR D-Dimer ABG pH POC ABG pCO2 POC ABG pO2 ABG pO2 ABG HCO3 ABG O2 Saturation ABG Base Excess ABG Hemoglobin ABG Oxyhemoglobin ABG Potassium ABG Glucose Oxyhemoglobin Carboxyhemoglobin Sodium Potassium Chloride Carbon Dioxide BUN Creatinine Glucose POC Glucose 135 H 133 H Calcium Ferritin Total Bilirubin Alkaline Phosphatase Lactate Dehydrogenase Total Creatine Kinase CK-MB (CK-2) Rel Index Troponin T 0.113 H* C-Reactive Protein Total Protein Albumin Prealbumin LDL Cholesterol Direct HDL Cholesterol Arterial Blood Glucose Arterial Blood Ionized Calcium Urine WBC (Auto) 03/23/20 03/23/20 03/23/20 01:47 06:21 07:57 WBC RBC Hgb Hct MCV MCH RDW Plt Count Lymph % (Auto) [place] % (Auto) Lymph # (Auto) [place] # (Auto) Seg Neutrophils % Seg Neuts % (Manual) Lymphocytes % (Manual) Monocytes % (Manual) Basophils % (Manual) Seg Neutrophils # Seg Neutrophils # Man Lymphocytes # (Manual) Monocytes # (Manual) Eosinophils # (Manual) Basophils # (Manual) PT INR D-Dimer ABG pH POC ABG pCO2 POC ABG pO2 ABG pO2 ABG HCO3 ABG O2 Saturation ABG Base Excess ABG Hemoglobin ABG Oxyhemoglobin ABG Potassium ABG Glucose Oxyhemoglobin Carboxyhemoglobin Sodium Potassium Chloride Carbon Dioxide BUN Creatinine Glucose POC Glucose 130 H Calcium Ferritin Total Bilirubin Alkaline Phosphatase Lactate Dehydrogenase Total Creatine Kinase CK-MB (CK-2) Rel Index Troponin T 0.143 H* D 0.105 H* D C-Reactive Protein Total Protein Albumin Prealbumin LDL Cholesterol Direct HDL Cholesterol Arterial Blood Glucose Arterial Blood Ionized Calcium Urine WBC (Auto) 03/23/20 03/24/20 03/24/20 12:02 05:33 07:15 WBC 18.0 H RBC Hgb 11.0 L Hct 34.0 L MCV MCH RDW 17.4 H Plt Count 520 H Lymph % (Auto) [place] % (Auto) Lymph # (Auto) [place] # (Auto) Seg Neutrophils % Seg Neuts % (Manual) 88.0 H Lymphocytes % (Manual) 7.0 L Monocytes % (Manual) Basophils % (Manual) Seg Neutrophils # Seg Neutrophils # Man 15.8 H Lymphocytes # (Manual) Monocytes # (Manual) Eosinophils # (Manual) Basophils # (Manual) PT INR D-Dimer ABG pH POC ABG pCO2 POC ABG pO2 ABG pO2 ABG HCO3 ABG O2 Saturation ABG Base Excess ABG Hemoglobin ABG Oxyhemoglobin ABG Potassium ABG Glucose Oxyhemoglobin Carboxyhemoglobin Sodium Potassium Chloride Carbon Dioxide BUN Creatinine Glucose POC Glucose 137 H 112 H Calcium Ferritin Total Bilirubin Alkaline Phosphatase Lactate Dehydrogenase Total Creatine Kinase CK-MB (CK-2) Rel Index Troponin T C-Reactive Protein Total Protein Albumin Prealbumin LDL Cholesterol Direct HDL Cholesterol Arterial Blood Glucose Arterial Blood Ionized Calcium Urine WBC (Auto) 03/24/20 03/24/20 03/24/20 07:15 11:22 23:30 WBC RBC Hgb Hct MCV MCH RDW Plt Count Lymph % (Auto) [place] % (Auto) Lymph # (Auto) [place] # (Auto) Seg Neutrophils % Seg Neuts % (Manual) Lymphocytes % (Manual) Monocytes % (Manual) Basophils % (Manual) Seg Neutrophils # Seg Neutrophils # Man Lymphocytes # (Manual) Monocytes # (Manual) Eosinophils # (Manual) Basophils # (Manual) PT INR D-Dimer ABG pH POC ABG pCO2 POC ABG pO2 ABG pO2 ABG HCO3 ABG O2 Saturation ABG Base Excess ABG Hemoglobin ABG Oxyhemoglobin ABG Potassium ABG Glucose Oxyhemoglobin Carboxyhemoglobin Sodium Potassium Chloride 96.6 L Carbon Dioxide 38 H BUN Creatinine < 0.2 L Glucose 141 H POC Glucose 130 H 120 H Calcium Ferritin Total Bilirubin Alkaline Phosphatase Lactate Dehydrogenase Total Creatine Kinase CK-MB (CK-2) Rel Index Troponin T C-Reactive Protein Total Protein Albumin Prealbumin LDL Cholesterol Direct HDL Cholesterol Arterial Blood Glucose Arterial Blood Ionized Calcium Urine WBC (Auto) 03/25/20 03/25/2003/25/20 05:48 17:53 23:18 WBC RBC Hgb Hct MCV MCH RDW Plt Count Lymph % (Auto) [place] % (Auto) Lymph # (Auto) [place] # (Auto) Seg Neutrophils % Seg Neuts % (Manual) Lymphocytes % (Manual) Monocytes % (Manual) Basophils % (Manual) Seg Neutrophils # Seg Neutrophils # Man Lymphocytes # (Manual) Monocytes # (Manual) Eosinophils # (Manual) Basophils # (Manual) PT INR D-Dimer ABG pH POC ABG pCO2 POC ABG pO2 ABG pO2 ABG HCO3 ABG O2 Saturation ABG Base Excess ABG Hemoglobin ABG Oxyhemoglobin ABG Potassium ABG Glucose Oxyhemoglobin Carboxyhemoglobin Sodium Potassium Chloride Carbon Dioxide BUN Creatinine Glucose POC Glucose 124 H 109 H 131 H Calcium Ferritin Total Bilirubin Alkaline Phosphatase Lactate Dehydrogenase Total Creatine Kinase CK-MB (CK-2) Rel Index Troponin T C-Reactive Protein Total Protein Albumin Prealbumin LDL Cholesterol Direct HDL Cholesterol Arterial Blood Glucose Arterial Blood Ionized Calcium Urine WBC (Auto) 03/26/20 03/26/20 03/26/20 05:21 08:49 08:49 WBC 19.7 H RBC Hgb 10.7 L Hct 33.5 L MCV MCH 27 L RDW 17.1 H Plt Count 480 H Lymph % (Auto) 5.7 L [place] % (Auto) Lymph # (Auto) 1.1 L [place] # (Auto) 1.2 H Seg Neutrophils % 87.7 H Seg Neuts % (Manual) Lymphocytes % (Manual) Monocytes % (Manual) Basophils % (Manual) Seg Neutrophils # 17.2 H Seg Neutrophils # Man Lymphocytes # (Manual) Monocytes # (Manual) Eosinophils # (Manual) Basophils # (Manual) PT INR D-Dimer ABG pH POC ABG pCO2 POC ABG pO2 ABG pO2 ABG HCO3 ABG O2 Saturation ABG Base Excess ABG Hemoglobin ABG Oxyhemoglobin ABG Potassium ABG Glucose Oxyhemoglobin Carboxyhemoglobin Sodium Potassium Chloride 97.2 L Carbon Dioxide 36 H BUN Creatinine < 0.2 L Glucose 127 H POC Glucose 116 H Calcium Ferritin Total Bilirubin Alkaline Phosphatase Lactate Dehydrogenase Total Creatine Kinase CK-MB (CK-2) Rel Index Troponin T C-Reactive Protein Total Protein Albumin Prealbumin LDL Cholesterol Direct HDL Cholesterol Arterial Blood Glucose Arterial Blood Ionized Calcium Urine WBC (Auto) 03/26/20 03/26/20 03/26/20 11:38 18:44 23:06 WBC RBC Hgb Hct MCV MCH RDW Plt Count Lymph % (Auto) [place] % (Auto) Lymph # (Auto) [place] # (Auto) Seg Neutrophils % Seg Neuts % (Manual) Lymphocytes % (Manual) Monocytes % (Manual) Basophils % (Manual) Seg Neutrophils # Seg Neutrophils # Man Lymphocytes # (Manual) Monocytes # (Manual) Eosinophils # (Manual) Basophils # (Manual) PT INR D-Dimer ABG pH POC ABG pCO2 POC ABG pO2 ABG pO2 ABG HCO3 ABG O2 Saturation ABG Base Excess ABG Hemoglobin ABG Oxyhemoglobin ABG Potassium ABG Glucose Oxyhemoglobin Carboxyhemoglobin Sodium Potassium Chloride Carbon Dioxide BUN Creatinine Glucose POC Glucose 120 H 111 H 134 H Calcium Ferritin Total Bilirubin Alkaline Phosphatase Lactate Dehydrogenase Total Creatine Kinase CK-MB (CK-2) Rel Index Troponin T C-Reactive Protein Total Protein Albumin Prealbumin LDL Cholesterol Direct HDL Cholesterol Arterial Blood Glucose Arterial Blood Ionized Calcium Urine WBC (Auto) 03/27/20 03/27/20 03/27/20 05:41 05:59 05:59 WBC 18.6 H RBC Hgb 10.1 L Hct 31.4 L MCV MCH RDW 17.2 H Plt Count Lymph % (Auto) 8.0 L [place] % (Auto) Lymph # (Auto) [place] # (Auto) 1.2 H Seg Neutrophils % 84.7 H Seg Neuts % (Manual) Lymphocytes % (Manual) Monocytes % (Manual) Basophils % (Manual) Seg Neutrophils # 15.8 H Seg Neutrophils # Man Lymphocytes # (Manual) Monocytes # (Manual) Eosinophils # (Manual) Basophils # (Manual) PT INR D-Dimer ABG pH POC ABG pCO2 POC ABG pO2 ABG pO2 ABG HCO3 ABG O2 Saturation ABG Base Excess ABG Hemoglobin ABG Oxyhemoglobin ABG Potassium ABG Glucose Oxyhemoglobin Carboxyhemoglobin Sodium Potassium Chloride Carbon Dioxide 34 H BUN Creatinine < 0.2 L Glucose 127 H POC Glucose 129 H Calcium Ferritin Total Bilirubin Alkaline Phosphatase Lactate Dehydrogenase Total Creatine Kinase CK-MB (CK-2) Rel Index Troponin T C-Reactive Protein Total Protein Albumin Prealbumin LDL Cholesterol Direct HDL Cholesterol Arterial Blood Glucose Arterial Blood Ionized Calcium Urine WBC (Auto) 03/27/20 03/27/20 03/28/20 17:28 23:22 05:23 WBC RBC Hgb Hct MCV MCH RDW Plt Count Lymph % (Auto) [place] % (Auto) Lymph # (Auto) [place] # (Auto) Seg Neutrophils % Seg Neuts % (Manual) Lymphocytes % (Manual) Monocytes % (Manual) Basophils % (Manual) Seg Neutrophils # Seg Neutrophils # Man Lymphocytes # (Manual) Monocytes # (Manual) Eosinophils # (Manual) Basophils # (Manual) PT INR D-Dimer ABG pH POC ABG pCO2 POC ABG pO2 ABG pO2 ABG HCO3 ABG O2 Saturation ABG Base Excess ABG Hemoglobin ABG Oxyhemoglobin ABG Potassium ABG Glucose Oxyhemoglobin Carboxyhemoglobin Sodium Potassium Chloride Carbon Dioxide BUN Creatinine Glucose POC Glucose 108 H 119 H 129 H Calcium Ferritin Total Bilirubin Alkaline Phosphatase Lactate Dehydrogenase Total Creatine Kinase CK-MB (CK-2) Rel Index Troponin T C-Reactive Protein Total Protein Albumin Prealbumin LDL Cholesterol Direct HDL Cholesterol Arterial Blood Glucose Arterial Blood Ionized Calcium Urine WBC (Auto) 03/28/20 03/28/20 03/28/20 10:28 10:28 11:36 WBC 23.6 H RBC 3.62 L Hgb 10.0 L Hct 30.8 L MCV MCH RDW 16.4 H Plt Count Lymph % (Auto) [place] % (Auto) Lymph # (Auto) [place] # (Auto) Seg Neutrophils % Seg Neuts % (Manual) 89.0 H Lymphocytes % (Manual) 5.0 L Monocytes % (Manual) Basophils % (Manual) Seg Neutrophils # Seg Neutrophils # Man 21.0 H Lymphocytes # (Manual) Monocytes # (Manual) 1.2 H Eosinophils # (Manual) Basophils # (Manual) 0.2 H PT INR D-Dimer ABG pH POC ABG pCO2 POC ABG pO2 ABG pO2 ABG HCO3 ABG O2 Saturation ABG Base Excess ABG Hemoglobin ABG Oxyhemoglobin ABG Potassium ABG Glucose Oxyhemoglobin Carboxyhemoglobin Sodium 134 L Potassium Chloride 94.2 L Carbon Dioxide 35 H BUN Creatinine < 0.2 L Glucose 134 H POC Glucose Calcium Ferritin Total Bilirubin Alkaline Phosphatase Lactate Dehydrogenase Total Creatine Kinase CK-MB (CK-2) Rel Index Troponin T C-Reactive Protein Total Protein Albumin Prealbumin LDL Cholesterol Direct HDL Cholesterol Arterial Blood Glucose Arterial Blood Ionized Calcium Urine WBC (Auto) 39.0 H 03/28/20 03/28/20 03/28/20 11:51 17:08 17:17 WBC RBC Hgb Hct MCV MCH RDW Plt Count Lymph % (Auto) [place] % (Auto) Lymph # (Auto) [place] # (Auto) Seg Neutrophils % Seg Neuts % (Manual) Lymphocytes % (Manual) Monocytes % (Manual) Basophils % (Manual) Seg Neutrophils # Seg Neutrophils # Man Lymphocytes # (Manual) Monocytes # (Manual) Eosinophils # (Manual) Basophils # (Manual) PT INR D-Dimer ABG pH POC ABG pCO2 POC ABG pO2 ABG pO2 ABG HCO3 ABG O2 Saturation ABG Base Excess ABG Hemoglobin ABG Oxyhemoglobin ABG Potassium ABG Glucose Oxyhemoglobin Carboxyhemoglobin Sodium Potassium Chloride Carbon Dioxide BUN Creatinine Glucose POC Glucose 123 H 112 H Calcium Ferritin Total Bilirubin Alkaline Phosphatase Lactate Dehydrogenase Total Creatine Kinase 47 L CK-MB (CK-2) Rel Index 4.6 H Troponin T 0.090 H C-Reactive Protein Total Protein Albumin Prealbumin LDL Cholesterol Direct HDL Cholesterol Arterial Blood Glucose Arterial Blood Ionized Calcium Urine WBC (Auto) 03/28/20 03/29/20 03/29/20 23:22 05:22 10:58 WBC RBC Hgb Hct MCV MCH RDW Plt Count Lymph % (Auto) [place] % (Auto) Lymph # (Auto) [place] # (Auto) Seg Neutrophils % Seg Neuts % (Manual) Lymphocytes % (Manual) Monocytes % (Manual) Basophils % (Manual) Seg Neutrophils # Seg Neutrophils # Man Lymphocytes # (Manual) Monocytes # (Manual) Eosinophils # (Manual) Basophils # (Manual) PT INR D-Dimer ABG pH POC ABG pCO2 POC ABG pO2 ABG pO2 ABG HCO3 ABG O2 Saturation ABG Base Excess ABG Hemoglobin ABG Oxyhemoglobin ABG Potassium ABG Glucose Oxyhemoglobin Carboxyhemoglobin Sodium Potassium Chloride Carbon Dioxide BUN Creatinine Glucose POC Glucose 122 H 116 H 133 H Calcium Ferritin Total Bilirubin Alkaline Phosphatase Lactate Dehydrogenase Total Creatine Kinase CK-MB (CK-2) Rel Index Troponin T C-Reactive Protein Total Protein Albumin Prealbumin LDL Cholesterol Direct HDL Cholesterol Arterial Blood Glucose Arterial Blood Ionized Calcium Urine WBC (Auto) 03/29/20 03/29/20 03/30/20 17:18 23:14 04:57 WBC RBC Hgb Hct MCV MCH RDW Plt Count Lymph % (Auto) [place] % (Auto) Lymph # (Auto) [place] # (Auto) Seg Neutrophils % Seg Neuts % (Manual) Lymphocytes % (Manual) Monocytes % (Manual) Basophils % (Manual) Seg Neutrophils # Seg Neutrophils # Man Lymphocytes # (Manual) Monocytes # (Manual) Eosinophils # (Manual) Basophils # (Manual) PT INR D-Dimer ABG pH POC ABG pCO2 POC ABG pO2 ABG pO2 ABG HCO3 ABG O2 Saturation ABG Base Excess ABG Hemoglobin ABG Oxyhemoglobin ABG Potassium ABG Glucose Oxyhemoglobin Carboxyhemoglobin Sodium Potassium Chloride Carbon Dioxide BUN Creatinine Glucose POC Glucose 111 H 114 H 130 H Calcium Ferritin Total Bilirubin Alkaline Phosphatase Lactate Dehydrogenase Total Creatine Kinase CK-MB (CK-2) Rel Index Troponin T C-Reactive Protein Total Protein Albumin Prealbumin LDL Cholesterol Direct HDL Cholesterol Arterial Blood Glucose Arterial Blood Ionized Calcium Urine WBC (Auto) 03/30/20 03/30/20 03/30/20 11:38 14:47 14:47 WBC 19.9 H RBC Hgb 10.9 L Hct 34.4 L MCV MCH 27 L RDW 16.5 H Plt Count 441 H Lymph % (Auto) 6.4 L [place] % (Auto) Lymph # (Auto) [place] # (Auto) 1.4 H Seg Neutrophils % 86.1 H Seg Neuts % (Manual) Lymphocytes % (Manual) Monocytes % (Manual) Basophils % (Manual) Seg Neutrophils # 17.1 H Seg Neutrophils # Man Lymphocytes # (Manual) Monocytes # (Manual) Eosinophils # (Manual) Basophils # (Manual) PT INR D-Dimer ABG pH POC ABG pCO2 POC ABG pO2 ABG pO2 ABG HCO3 ABG O2 Saturation ABG Base Excess ABG Hemoglobin ABG Oxyhemoglobin ABG Potassium ABG Glucose Oxyhemoglobin Carboxyhemoglobin Sodium 133 L Potassium Chloride 94.6 L Carbon Dioxide 33 H BUN Creatinine < 0.2 L Glucose 194 H POC Glucose 139 H Calcium Ferritin Total Bilirubin Alkaline Phosphatase Lactate Dehydrogenase Total Creatine Kinase CK-MB (CK-2) Rel Index Troponin T C-Reactive Protein Total Protein Albumin 2.8 L Prealbumin LDL Cholesterol Direct HDL Cholesterol Arterial Blood Glucose Arterial Blood Ionized Calcium Urine WBC (Auto) 03/30/20 03/31/20 03/31/20 17:07 05:02 15:21 WBC RBC Hgb Hct MCV MCH RDW Plt Count Lymph % (Auto) [place] % (Auto) Lymph # (Auto) [place] # (Auto) Seg Neutrophils % Seg Neuts % (Manual) Lymphocytes % (Manual) Monocytes % (Manual) Basophils % (Manual) Seg Neutrophils # Seg Neutrophils # Man Lymphocytes # (Manual) Monocytes # (Manual) Eosinophils # (Manual) Basophils # (Manual) PT INR D-Dimer ABG pH POC ABG pCO2 POC ABG pO2 ABG pO2 ABG HCO3 ABG O2 Saturation ABG Base Excess ABG Hemoglobin ABG Oxyhemoglobin ABG Potassium ABG Glucose Oxyhemoglobin Carboxyhemoglobin Sodium Potassium Chloride Carbon Dioxide BUN Creatinine Glucose POC Glucose 163 H 108 H 110 H Calcium Ferritin Total Bilirubin Alkaline Phosphatase Lactate Dehydrogenase Total Creatine Kinase CK-MB (CK-2) Rel Index Troponin T C-Reactive Protein Total Protein Albumin Prealbumin LDL Cholesterol Direct HDL Cholesterol Arterial Blood Glucose Arterial Blood Ionized Calcium Urine WBC (Auto) 03/31/20 03/31/20 04/01/20 17:58 23:19 05:09 WBC RBC Hgb Hct MCV MCH RDW Plt Count Lymph % (Auto) [place] % (Auto) Lymph # (Auto) [place] # (Auto) Seg Neutrophils % Seg Neuts % (Manual) Lymphocytes % (Manual) Monocytes % (Manual) Basophils % (Manual) Seg Neutrophils # Seg Neutrophils # Man Lymphocytes # (Manual) Monocytes # (Manual) Eosinophils # (Manual) Basophils # (Manual) PT INR D-Dimer ABG pH POC ABG pCO2 POC ABG pO2 ABG pO2 ABG HCO3 ABG O2 Saturation ABG Base Excess ABG Hemoglobin ABG Oxyhemoglobin ABG Potassium ABG Glucose Oxyhemoglobin Carboxyhemoglobin Sodium Potassium Chloride Carbon Dioxide BUN Creatinine Glucose POC Glucose 110 H 131 H 124 H Calcium Ferritin Total Bilirubin Alkaline Phosphatase Lactate Dehydrogenase Total Creatine Kinase CK-MB (CK-2) Rel Index Troponin T C-Reactive Protein Total Protein Albumin Prealbumin LDL Cholesterol Direct HDL Cholesterol Arterial Blood Glucose Arterial Blood Ionized Calcium Urine WBC (Auto) 04/01/20 04/01/20 04/01/20 11:50 17:01 23:21 WBC RBC Hgb Hct MCV MCH RDW Plt Count Lymph % (Auto) [place] % (Auto) Lymph # (Auto) [place] # (Auto) Seg Neutrophils % Seg Neuts % (Manual) Lymphocytes % (Manual) Monocytes % (Manual) Basophils % (Manual) Seg Neutrophils # Seg Neutrophils # Man Lymphocytes # (Manual) Monocytes # (Manual) Eosinophils # (Manual) Basophils # (Manual) PT INR D-Dimer ABG pH POC ABG pCO2 POC ABG pO2 ABG pO2 ABG HCO3 ABG O2 Saturation ABG Base Excess ABG Hemoglobin ABG Oxyhemoglobin ABG Potassium ABG Glucose Oxyhemoglobin Carboxyhemoglobin Sodium Potassium Chloride Carbon Dioxide BUN Creatinine Glucose POC Glucose 136 H 115 H 124 H Calcium Ferritin Total Bilirubin Alkaline Phosphatase Lactate Dehydrogenase Total Creatine Kinase CK-MB (CK-2) Rel Index Troponin T C-Reactive Protein Total Protein Albumin Prealbumin LDL Cholesterol Direct HDL Cholesterol Arterial Blood Glucose Arterial Blood Ionized Calcium Urine WBC (Auto) 04/02/20 04/02/20 04/02/20 05:27 11:58 17:58 WBC RBC Hgb Hct MCV MCH RDW Plt Count Lymph % (Auto) [place] % (Auto) Lymph # (Auto) [place] # (Auto) Seg Neutrophils % Seg Neuts % (Manual) Lymphocytes % (Manual) Monocytes % (Manual) Basophils % (Manual) Seg Neutrophils # Seg Neutrophils # Man Lymphocytes # (Manual) Monocytes # (Manual) Eosinophils # (Manual) Basophils # (Manual) PT INR D-Dimer ABG pH POC ABG pCO2 POC ABG pO2 ABG pO2 ABG HCO3 ABG O2 Saturation ABG Base Excess ABG Hemoglobin ABG Oxyhemoglobin ABG Potassium ABG Glucose Oxyhemoglobin Carboxyhemoglobin Sodium Potassium Chloride Carbon Dioxide BUN Creatinine Glucose POC Glucose 117 H 133 H 122 H Calcium Ferritin Total Bilirubin Alkaline Phosphatase Lactate Dehydrogenase Total Creatine Kinase CK-MB (CK-2) Rel Index Troponin T C-Reactive Protein Total Protein Albumin Prealbumin LDL Cholesterol Direct HDL Cholesterol Arterial Blood Glucose Arterial Blood Ionized Calcium Urine WBC (Auto) 04/02/20 04/03/20 04/03/20 23:12 05:11 11:11 WBC RBC Hgb Hct MCV MCH RDW Plt Count Lymph % (Auto) [place] % (Auto) Lymph # (Auto) [place] # (Auto) Seg Neutrophils % Seg Neuts % (Manual) Lymphocytes % (Manual) Monocytes % (Manual) Basophils % (Manual) Seg Neutrophils # Seg Neutrophils # Man Lymphocytes # (Manual) Monocytes # (Manual) Eosinophils # (Manual) Basophils # (Manual) PT INR D-Dimer ABG pH POC ABG pCO2 POC ABG pO2 ABG pO2 ABG HCO3 ABG O2 Saturation ABG Base Excess ABG Hemoglobin ABG Oxyhemoglobin ABG Potassium ABG Glucose Oxyhemoglobin Carboxyhemoglobin Sodium Potassium Chloride Carbon Dioxide BUN Creatinine Glucose POC Glucose 130 H 139 H 136 H Calcium Ferritin Total Bilirubin Alkaline Phosphatase Lactate Dehydrogenase Total Creatine Kinase CK-MB (CK-2) Rel Index Troponin T C-Reactive Protein Total Protein Albumin Prealbumin LDL Cholesterol Direct HDL Cholesterol Arterial Blood Glucose Arterial Blood Ionized Calcium Urine WBC (Auto) 04/03/20 04/03/20 04/04/20 16:51 23:25 05:29 WBC RBC Hgb Hct MCV MCH RDW Plt Count Lymph % (Auto) [place] % (Auto) Lymph # (Auto) [place] # (Auto) Seg Neutrophils % Seg Neuts % (Manual) Lymphocytes % (Manual) Monocytes % (Manual) Basophils % (Manual) Seg Neutrophils # Seg Neutrophils # Man Lymphocytes # (Manual) Monocytes # (Manual) Eosinophils # (Manual) Basophils # (Manual) PT INR D-Dimer ABG pH POC ABG pCO2 POC ABG pO2 ABG pO2 ABG HCO3 ABG O2 Saturation ABG Base Excess ABG Hemoglobin ABG Oxyhemoglobin ABG Potassium ABG Glucose Oxyhemoglobin Carboxyhemoglobin Sodium Potassium Chloride Carbon Dioxide BUN Creatinine Glucose POC Glucose 118 H 111 H 126 H Calcium Ferritin Total Bilirubin Alkaline Phosphatase Lactate Dehydrogenase Total Creatine Kinase CK-MB (CK-2) Rel Index Troponin T C-Reactive Protein Total Protein Albumin Prealbumin LDL Cholesterol Direct HDL Cholesterol Arterial Blood Glucose Arterial Blood Ionized Calcium Urine WBC (Auto) 04/04/20 04/04/20 04/04/20 11:47 17:41 23:05 WBC RBC Hgb Hct MCV MCH RDW Plt Count Lymph % (Auto) [place] % (Auto) Lymph # (Auto) [place] # (Auto) Seg Neutrophils % Seg Neuts % (Manual) Lymphocytes % (Manual) Monocytes % (Manual) Basophils % (Manual) Seg Neutrophils # Seg Neutrophils # Man Lymphocytes # (Manual) Monocytes # (Manual) Eosinophils # (Manual) Basophils # (Manual) PT INR D-Dimer ABG pH POC ABG pCO2 POC ABG pO2 ABG pO2 ABG HCO3 ABG O2 Saturation ABG Base Excess ABG Hemoglobin ABG Oxyhemoglobin ABG Potassium ABG Glucose Oxyhemoglobin Carboxyhemoglobin Sodium Potassium Chloride Carbon Dioxide BUN Creatinine Glucose POC Glucose 123 H 120 H 119 H Calcium Ferritin Total Bilirubin Alkaline Phosphatase Lactate Dehydrogenase Total Creatine Kinase CK-MB (CK-2) Rel Index Troponin T C-Reactive Protein Total Protein Albumin Prealbumin LDL Cholesterol Direct HDL Cholesterol Arterial Blood Glucose Arterial Blood Ionized Calcium Urine WBC (Auto) 04/05/20 04/05/20 04/05/20 05:14 12:16 18:48 WBC RBC Hgb Hct MCV MCH RDW Plt Count Lymph % (Auto) [place] % (Auto) Lymph # (Auto) [place] # (Auto) Seg Neutrophils % Seg Neuts % (Manual) Lymphocytes % (Manual) Monocytes % (Manual) Basophils % (Manual) Seg Neutrophils # Seg Neutrophils # Man Lymphocytes # (Manual) Monocytes # (Manual) Eosinophils # (Manual) Basophils # (Manual) PT INR D-Dimer ABG pH POC ABG pCO2 POC ABG pO2 ABG pO2 ABG HCO3 ABG O2 Saturation ABG Base Excess ABG Hemoglobin ABG Oxyhemoglobin ABG Potassium ABG Glucose Oxyhemoglobin Carboxyhemoglobin Sodium Potassium Chloride Carbon Dioxide BUN Creatinine Glucose POC Glucose 123 H 148 H 106 H Calcium Ferritin Total Bilirubin Alkaline Phosphatase Lactate Dehydrogenase Total Creatine Kinase CK-MB (CK-2) Rel Index Troponin T C-Reactive Protein Total Protein Albumin Prealbumin LDL Cholesterol Direct HDL Cholesterol Arterial Blood Glucose Arterial Blood Ionized Calcium Urine WBC (Auto) 04/06/20 04/06/20 04/06/20 00:47 03:26 08:24 WBC RBC Hgb Hct MCV MCH RDW Plt Count Lymph % (Auto) [place] % (Auto) Lymph # (Auto) [place] # (Auto) Seg Neutrophils % Seg Neuts % (Manual) Lymphocytes % (Manual) Monocytes % (Manual) Basophils % (Manual) Seg Neutrophils # Seg Neutrophils # Man Lymphocytes # (Manual) Monocytes # (Manual) Eosinophils # (Manual) Basophils # (Manual) PT INR D-Dimer ABG pH POC ABG pCO2 POC ABG pO2 ABG pO2 ABG HCO3 ABG O2 Saturation ABG Base Excess ABG Hemoglobin ABG Oxyhemoglobin ABG Potassium ABG Glucose Oxyhemoglobin Carboxyhemoglobin Sodium Potassium Chloride Carbon Dioxide BUN Creatinine Glucose POC Glucose 129 H 134 H 131 H Calcium Ferritin Total Bilirubin Alkaline Phosphatase Lactate Dehydrogenase Total Creatine Kinase CK-MB (CK-2) Rel Index Troponin T C-Reactive Protein Total Protein Albumin Prealbumin LDL Cholesterol Direct HDL Cholesterol Arterial Blood Glucose Arterial Blood Ionized Calcium Urine WBC (Auto) 04/06/20 04/06/20 04/06/20 11:16 16:27 23:01 WBC RBC Hgb Hct MCV MCH RDW Plt Count Lymph % (Auto) [place] % (Auto) Lymph # (Auto) [place] # (Auto) Seg Neutrophils % Seg Neuts % (Manual) Lymphocytes % (Manual) Monocytes % (Manual) Basophils % (Manual) Seg Neutrophils # Seg Neutrophils # Man Lymphocytes # (Manual) Monocytes # (Manual) Eosinophils # (Manual) Basophils # (Manual) PT INR D-Dimer ABG pH POC ABG pCO2 POC ABG pO2 ABG pO2 ABG HCO3 ABG O2 Saturation ABG Base Excess ABG Hemoglobin ABG Oxyhemoglobin ABG Potassium ABG Glucose Oxyhemoglobin Carboxyhemoglobin Sodium Potassium Chloride Carbon Dioxide BUN Creatinine Glucose POC Glucose 131 H 107 H 125 H Calcium Ferritin Total Bilirubin Alkaline Phosphatase Lactate Dehydrogenase Total Creatine Kinase CK-MB (CK-2) Rel Index Troponin T C-Reactive Protein Total Protein Albumin Prealbumin LDL Cholesterol Direct HDL Cholesterol Arterial Blood Glucose Arterial Blood Ionized Calcium Urine WBC (Auto) 04/07/20 04/07/20 04/07/20 05:24 12:41 17:40 WBC RBC Hgb Hct MCV MCH RDW Plt Count Lymph % (Auto) [place] % (Auto) Lymph # (Auto) [place] # (Auto) Seg Neutrophils % Seg Neuts % (Manual) Lymphocytes % (Manual) Monocytes % (Manual) Basophils % (Manual) Seg Neutrophils # Seg Neutrophils # Man Lymphocytes # (Manual) Monocytes # (Manual) Eosinophils # (Manual) Basophils # (Manual) PT INR D-Dimer ABG pH POC ABG pCO2 POC ABG pO2 ABG pO2 ABG HCO3 ABG O2 Saturation ABG Base Excess ABG Hemoglobin ABG Oxyhemoglobin ABG Potassium ABG Glucose Oxyhemoglobin Carboxyhemoglobin Sodium Potassium Chloride Carbon Dioxide BUN Creatinine Glucose POC Glucose 125 H 145 H 123 H Calcium Ferritin Total Bilirubin Alkaline Phosphatase Lactate Dehydrogenase Total Creatine Kinase CK-MB (CK-2) Rel Index Troponin T C-Reactive Protein Total Protein Albumin Prealbumin LDL Cholesterol Direct HDL Cholesterol Arterial Blood Glucose Arterial Blood Ionized Calcium Urine WBC (Auto) 04/07/20 04/08/20 04/08/20 23:22 05:40 11:29 WBC RBC Hgb Hct MCV MCH RDW Plt Count Lymph % (Auto) [place] % (Auto) Lymph # (Auto) [place] # (Auto) Seg Neutrophils % Seg Neuts % (Manual) Lymphocytes % (Manual) Monocytes % (Manual) Basophils % (Manual) Seg Neutrophils # Seg Neutrophils # Man Lymphocytes # (Manual) Monocytes # (Manual) Eosinophils # (Manual) Basophils # (Manual) PT INR D-Dimer ABG pH POC ABG pCO2 POC ABG pO2 ABG pO2 ABG HCO3 ABG O2 Saturation ABG Base Excess ABG Hemoglobin ABG Oxyhemoglobin ABG Potassium ABG Glucose Oxyhemoglobin Carboxyhemoglobin Sodium Potassium Chloride Carbon Dioxide BUN Creatinine Glucose POC Glucose 133 H 125 H 116 H Calcium Ferritin Total Bilirubin Alkaline Phosphatase Lactate Dehydrogenase Total Creatine Kinase CK-MB (CK-2) Rel Index Troponin T C-Reactive Protein Total Protein Albumin Prealbumin LDL Cholesterol Direct HDL Cholesterol Arterial Blood Glucose Arterial Blood Ionized Calcium Urine WBC (Auto) 04/08/20 04/09/20 04/09/20 17:43 05:47 12:22 WBC RBC Hgb Hct MCV MCH RDW Plt Count Lymph % (Auto) [place] % (Auto) Lymph # (Auto) [place] # (Auto) Seg Neutrophils % Seg Neuts % (Manual) Lymphocytes % (Manual) Monocytes % (Manual) Basophils % (Manual) Seg Neutrophils # Seg Neutrophils # Man Lymphocytes # (Manual) Monocytes # (Manual) Eosinophils # (Manual) Basophils # (Manual) PT INR D-Dimer ABG pH POC ABG pCO2 POC ABG pO2 ABG pO2 ABG HCO3 ABG O2 Saturation ABG Base Excess ABG Hemoglobin ABG Oxyhemoglobin ABG Potassium ABG Glucose Oxyhemoglobin Carboxyhemoglobin Sodium Potassium Chloride Carbon Dioxide BUN Creatinine Glucose POC Glucose 123 H 108 H 116 H Calcium Ferritin Total Bilirubin Alkaline Phosphatase Lactate Dehydrogenase Total Creatine Kinase CK-MB (CK-2) Rel Index Troponin T C-Reactive Protein Total Protein Albumin Prealbumin LDL Cholesterol Direct HDL Cholesterol Arterial Blood Glucose Arterial Blood Ionized Calcium Urine WBC (Auto) 04/09/20 04/09/20 04/10/20 17:24 23:52 06:10 WBC RBC Hgb Hct MCV MCH RDW Plt Count Lymph % (Auto) [place] % (Auto) Lymph # (Auto) [place] # (Auto) Seg Neutrophils % Seg Neuts % (Manual) Lymphocytes % (Manual) Monocytes % (Manual) Basophils % (Manual) Seg Neutrophils # Seg Neutrophils # Man Lymphocytes # (Manual) Monocytes # (Manual) Eosinophils # (Manual) Basophils # (Manual) PT INR D-Dimer ABG pH POC ABG pCO2 POC ABG pO2 ABG pO2 ABG HCO3 ABG O2 Saturation ABG Base Excess ABG Hemoglobin ABG Oxyhemoglobin ABG Potassium ABG Glucose Oxyhemoglobin Carboxyhemoglobin Sodium Potassium Chloride Carbon Dioxide BUN Creatinine Glucose POC Glucose 108 H 126 H 122 H Calcium Ferritin Total Bilirubin Alkaline Phosphatase Lactate Dehydrogenase Total Creatine Kinase CK-MB (CK-2) Rel Index Troponin T C-Reactive Protein Total Protein Albumin Prealbumin LDL Cholesterol Direct HDL Cholesterol Arterial Blood Glucose Arterial Blood Ionized Calcium Urine WBC (Auto) 04/10/20 04/10/20 04/10/20 11:27 18:11 23:24 WBC RBC Hgb Hct MCV MCH RDW Plt Count Lymph % (Auto) [place] % (Auto) Lymph # (Auto) [place] # (Auto) Seg Neutrophils % Seg Neuts % (Manual) Lymphocytes % (Manual) Monocytes % (Manual) Basophils % (Manual) Seg Neutrophils # Seg Neutrophils # Man Lymphocytes # (Manual) Monocytes # (Manual) Eosinophils # (Manual) Basophils # (Manual) PT INR D-Dimer ABG pH POC ABG pCO2 POC ABG pO2 ABG pO2 ABG HCO3 ABG O2 Saturation ABG Base Excess ABG Hemoglobin ABG Oxyhemoglobin ABG Potassium ABG Glucose Oxyhemoglobin Carboxyhemoglobin Sodium Potassium Chloride Carbon Dioxide BUN Creatinine Glucose POC Glucose 129 H 125 H 107 H Calcium Ferritin Total Bilirubin Alkaline Phosphatase Lactate Dehydrogenase Total Creatine Kinase CK-MB (CK-2) Rel Index Troponin T C-Reactive Protein Total Protein Albumin Prealbumin LDL Cholesterol Direct HDL Cholesterol Arterial Blood Glucose Arterial Blood Ionized Calcium Urine WBC (Auto) 04/11/20 04/11/20 04/11/20 05:28 11:46 23:49 WBC RBC Hgb Hct MCV MCH RDW Plt Count Lymph % (Auto) [place] % (Auto) Lymph # (Auto) [place] # (Auto) Seg Neutrophils % Seg Neuts % (Manual) Lymphocytes % (Manual) Monocytes % (Manual) Basophils % (Manual) Seg Neutrophils # Seg Neutrophils # Man Lymphocytes # (Manual) Monocytes # (Manual) Eosinophils # (Manual) Basophils # (Manual) PT INR D-Dimer ABG pH POC ABG pCO2 POC ABG pO2 ABG pO2 ABG HCO3 ABG O2 Saturation ABG Base Excess ABG Hemoglobin ABG Oxyhemoglobin ABG Potassium ABG Glucose Oxyhemoglobin Carboxyhemoglobin Sodium Potassium Chloride Carbon Dioxide BUN Creatinine Glucose POC Glucose 122 H 122 H 116 H Calcium Ferritin Total Bilirubin Alkaline Phosphatase Lactate Dehydrogenase Total Creatine Kinase CK-MB (CK-2) Rel Index Troponin T C-Reactive Protein Total Protein Albumin Prealbumin LDL Cholesterol Direct HDL Cholesterol Arterial Blood Glucose Arterial Blood Ionized Calcium Urine WBC (Auto) 04/12/20 04/12/20 04/12/20 09:07 09:07 11:39 WBC 13.1 H RBC 3.59 L Hgb 9.5 L Hct 29.8 L MCV 83 L MCH 26 L RDW 16.6 H Plt Count 591 H Lymph % (Auto) [place] % (Auto) Lymph # (Auto) [place] # (Auto) Seg Neutrophils % Seg Neuts % (Manual) 86.0 H Lymphocytes % (Manual) 7.0 L Monocytes % (Manual) Basophils % (Manual) Seg Neutrophils # Seg Neutrophils # Man 11.3 H Lymphocytes # (Manual) 0.9 L Monocytes # (Manual) Eosinophils # (Manual) Basophils # (Manual) PT INR D-Dimer ABG pH POC ABG pCO2 POC ABG pO2 ABG pO2 ABG HCO3 ABG O2 Saturation ABG Base Excess ABG Hemoglobin ABG Oxyhemoglobin ABG Potassium ABG Glucose Oxyhemoglobin Carboxyhemoglobin Sodium Potassium Chloride Carbon Dioxide 36 H BUN Creatinine < 0.2 L Glucose 132 H POC Glucose 136 H Calcium Ferritin Total Bilirubin Alkaline Phosphatase Lactate Dehydrogenase Total Creatine Kinase CK-MB (CK-2) Rel Index Troponin T C-Reactive Protein Total Protein Albumin 2.7 L Prealbumin LDL Cholesterol Direct HDL Cholesterol Arterial Blood Glucose Arterial Blood Ionized Calcium Urine WBC (Auto) 04/12/20 04/12/20 04/13/20 18:13 23:07 05:45 WBC RBC Hgb Hct MCV MCH RDW Plt Count Lymph % (Auto) [place] % (Auto) Lymph # (Auto) [place] # (Auto) Seg Neutrophils % Seg Neuts % (Manual) Lymphocytes % (Manual) Monocytes % (Manual) Basophils % (Manual) Seg Neutrophils # Seg Neutrophils # Man Lymphocytes # (Manual) Monocytes # (Manual) Eosinophils # (Manual) Basophils # (Manual) PT INR D-Dimer ABG pH POC ABG pCO2 POC ABG pO2 ABG pO2 ABG HCO3 ABG O2 Saturation ABG Base Excess ABG Hemoglobin ABG Oxyhemoglobin ABG Potassium ABG Glucose Oxyhemoglobin Carboxyhemoglobin Sodium Potassium Chloride Carbon Dioxide BUN Creatinine Glucose POC Glucose 107 H 106 H 125 H Calcium Ferritin Total Bilirubin Alkaline Phosphatase Lactate Dehydrogenase Total Creatine Kinase CK-MB (CK-2) Rel Index Troponin T C-Reactive Protein Total Protein Albumin Prealbumin LDL Cholesterol Direct HDL Cholesterol Arterial Blood Glucose Arterial Blood Ionized Calcium Urine WBC (Auto) 04/13/20 04/13/20 04/13/20 11:18 17:56 23:33 WBC RBC Hgb Hct MCV MCH RDW Plt Count Lymph % (Auto) [place] % (Auto) Lymph # (Auto) [place] # (Auto) Seg Neutrophils % Seg Neuts % (Manual) Lymphocytes % (Manual) Monocytes % (Manual) Basophils % (Manual) Seg Neutrophils # Seg Neutrophils # Man Lymphocytes # (Manual) Monocytes # (Manual) Eosinophils # (Manual) Basophils # (Manual) PT INR D-Dimer ABG pH POC ABG pCO2 POC ABG pO2 ABG pO2 ABG HCO3 ABG O2 Saturation ABG Base Excess ABG Hemoglobin ABG Oxyhemoglobin ABG Potassium ABG Glucose Oxyhemoglobin Carboxyhemoglobin Sodium Potassium Chloride Carbon Dioxide BUN Creatinine Glucose POC Glucose 133 H 110 H 114 H Calcium Ferritin Total Bilirubin Alkaline Phosphatase Lactate Dehydrogenase Total Creatine Kinase CK-MB (CK-2) Rel Index Troponin T C-Reactive Protein Total Protein Albumin Prealbumin LDL Cholesterol Direct HDL Cholesterol Arterial Blood Glucose Arterial Blood Ionized Calcium Urine WBC (Auto) 04/14/20 04/14/20 04/14/20 05:58 11:45 17:48 WBC RBC Hgb Hct MCV MCH RDW Plt Count Lymph % (Auto) [place] % (Auto) Lymph # (Auto) [place] # (Auto) Seg Neutrophils % Seg Neuts % (Manual) Lymphocytes % (Manual) Monocytes % (Manual) Basophils % (Manual) Seg Neutrophils # Seg Neutrophils # Man Lymphocytes # (Manual) Monocytes # (Manual) Eosinophils # (Manual) Basophils # (Manual) PT INR D-Dimer ABG pH POC ABG pCO2 POC ABG pO2 ABG pO2 ABG HCO3 ABG O2 Saturation ABG Base Excess ABG Hemoglobin ABG Oxyhemoglobin ABG Potassium ABG Glucose Oxyhemoglobin Carboxyhemoglobin Sodium Potassium Chloride Carbon Dioxide BUN Creatinine Glucose POC Glucose 115 H 122 H 124 H Calcium Ferritin Total Bilirubin Alkaline Phosphatase Lactate Dehydrogenase Total Creatine Kinase CK-MB (CK-2) Rel Index Troponin T C-Reactive Protein Total Protein Albumin Prealbumin LDL Cholesterol Direct HDL Cholesterol Arterial Blood Glucose Arterial Blood Ionized Calcium Urine WBC (Auto) 04/15/20 04/15/20 04/15/20 00:11 05:38 11:31 WBC RBC Hgb Hct MCV MCH RDW Plt Count Lymph % (Auto) [place] % (Auto) Lymph # (Auto) [place] # (Auto) Seg Neutrophils % Seg Neuts % (Manual) Lymphocytes % (Manual) Monocytes % (Manual) Basophils % (Manual) Seg Neutrophils # Seg Neutrophils # Man Lymphocytes # (Manual) Monocytes # (Manual) Eosinophils # (Manual) Basophils # (Manual) PT INR D-Dimer ABG pH POC ABG pCO2 POC ABG pO2 ABG pO2 ABG HCO3 ABG O2 Saturation ABG Base Excess ABG Hemoglobin ABG Oxyhemoglobin ABG Potassium ABG Glucose Oxyhemoglobin Carboxyhemoglobin Sodium Potassium Chloride Carbon Dioxide BUN Creatinine Glucose POC Glucose 120 H 109 H 123 H Calcium Ferritin Total Bilirubin Alkaline Phosphatase Lactate Dehydrogenase Total Creatine Kinase CK-MB (CK-2) Rel Index Troponin T C-Reactive Protein Total Protein Albumin Prealbumin LDL Cholesterol Direct HDL Cholesterol Arterial Blood Glucose Arterial Blood Ionized Calcium Urine WBC (Auto) 04/15/20 04/16/20 04/16/20 17:35 06:00 11:29 WBC RBC Hgb Hct MCV MCH RDW Plt Count Lymph % (Auto) [place] % (Auto) Lymph # (Auto) [place] # (Auto) Seg Neutrophils % Seg Neuts % (Manual) Lymphocytes % (Manual) Monocytes % (Manual) Basophils % (Manual) Seg Neutrophils # Seg Neutrophils # Man Lymphocytes # (Manual) Monocytes # (Manual) Eosinophils # (Manual) Basophils # (Manual) PT INR D-Dimer ABG pH POC ABG pCO2 POC ABG pO2 ABG pO2 ABG HCO3 ABG O2 Saturation ABG Base Excess ABG Hemoglobin ABG Oxyhemoglobin ABG Potassium ABG Glucose Oxyhemoglobin Carboxyhemoglobin Sodium Potassium Chloride Carbon Dioxide BUN Creatinine Glucose POC Glucose 111 H 142 H 108 H Calcium Ferritin Total Bilirubin Alkaline Phosphatase Lactate Dehydrogenase Total Creatine Kinase CK-MB (CK-2) Rel Index Troponin T C-Reactive Protein Total Protein Albumin Prealbumin LDL Cholesterol Direct HDL Cholesterol Arterial Blood Glucose Arterial Blood Ionized Calcium Urine WBC (Auto) 04/17/20 04/17/20 04/17/20 05:09 06:53 06:53 WBC 14.2 H RBC Hgb 10.1 L Hct 31.5 L MCV MCH 27 L RDW 17.2 H Plt Count 643 H Lymph % (Auto) [place] % (Auto) Lymph # (Auto) [place] # (Auto) Seg Neutrophils % Seg Neuts % (Manual) Lymphocytes % (Manual) Monocytes % (Manual) Basophils % (Manual) Seg Neutrophils # Seg Neutrophils # Man Lymphocytes # (Manual) Monocytes # (Manual) Eosinophils # (Manual) Basophils # (Manual) PT INR D-Dimer ABG pH POC ABG pCO2 POC ABG pO2 ABG pO2 ABG HCO3 ABG O2 Saturation ABG Base Excess ABG Hemoglobin ABG Oxyhemoglobin ABG Potassium ABG Glucose Oxyhemoglobin Carboxyhemoglobin Sodium Potassium Chloride 97.7 L Carbon Dioxide 38 H BUN Creatinine < 0.2 L Glucose 126 H POC Glucose 131 H Calcium Ferritin Total Bilirubin Alkaline Phosphatase Lactate Dehydrogenase Total Creatine Kinase CK-MB (CK-2) Rel Index Troponin T C-Reactive Protein Total Protein Albumin Prealbumin LDL Cholesterol Direct HDL Cholesterol Arterial Blood Glucose Arterial Blood Ionized Calcium Urine WBC (Auto) 04/17/20 04/18/20 04/18/20 11:21 00:23 04:01 WBC 15.3 H RBC Hgb 10.1 L Hct 31.9 L MCV 82 L MCH 26 L RDW 17.2 H Plt Count 665 H Lymph % (Auto) 12.9 L [place] % (Auto) Lymph # (Auto) [place] # (Auto) 1.1 H Seg Neutrophils % 78.0 H Seg Neuts % (Manual) Lymphocytes % (Manual) Monocytes % (Manual) Basophils % (Manual) Seg Neutrophils # 11.9 H Seg Neutrophils # Man Lymphocytes # (Manual) Monocytes # (Manual) Eosinophils # (Manual) Basophils # (Manual) PT INR D-Dimer ABG pH POC ABG pCO2 POC ABG pO2 ABG pO2 ABG HCO3 ABG O2 Saturation ABG Base Excess ABG Hemoglobin ABG Oxyhemoglobin ABG Potassium ABG Glucose Oxyhemoglobin Carboxyhemoglobin Sodium Potassium Chloride Carbon Dioxide BUN Creatinine Glucose POC Glucose 140 H 125 H Calcium Ferritin Total Bilirubin Alkaline Phosphatase Lactate Dehydrogenase Total Creatine Kinase CK-MB (CK-2) Rel Index Troponin T C-Reactive Protein Total Protein Albumin Prealbumin LDL Cholesterol Direct HDL Cholesterol Arterial Blood Glucose Arterial Blood Ionized Calcium Urine WBC (Auto) 04/18/20 04/18/20 04/18/20 04:01 11:29 17:30 WBC RBC Hgb Hct MCV MCH RDW Plt Count Lymph % (Auto) [place] % (Auto) Lymph # (Auto) [place] # (Auto) Seg Neutrophils % Seg Neuts % (Manual) Lymphocytes % (Manual) Monocytes % (Manual) Basophils % (Manual) Seg Neutrophils # Seg Neutrophils # Man Lymphocytes # (Manual) Monocytes # (Manual) Eosinophils # (Manual) Basophils # (Manual) PT INR D-Dimer ABG pH POC ABG pCO2 POC ABG pO2 ABG pO2 ABG HCO3 ABG O2 Saturation ABG Base Excess ABG Hemoglobin ABG Oxyhemoglobin ABG Potassium ABG Glucose Oxyhemoglobin Carboxyhemoglobin Sodium Potassium Chloride 97.0 L Carbon Dioxide 38 H BUN Creatinine < 0.2 L Glucose 117 H POC Glucose 136 H 107 H Calcium Ferritin Total Bilirubin Alkaline Phosphatase Lactate Dehydrogenase Total Creatine Kinase CK-MB (CK-2) Rel Index Troponin T C-Reactive Protein Total Protein Albumin Prealbumin LDL Cholesterol Direct HDL Cholesterol Arterial Blood Glucose Arterial Blood Ionized Calcium Urine WBC (Auto) 04/18/20 04/19/20 04/19/20 23:19 06:51 06:51 WBC 12.2 H RBC Hgb 9.8 L Hct 31.1 L MCV 82 L MCH 26 L RDW 17.2 H Plt Count 549 H Lymph % (Auto) 6.5 L [place] % (Auto) Lymph # (Auto) 0.8 L [place] # (Auto) Seg Neutrophils % 86.7 H Seg Neuts % (Manual) Lymphocytes % (Manual) Monocytes % (Manual) Basophils % (Manual) Seg Neutrophils # 10.6 H Seg Neutrophils # Man Lymphocytes # (Manual) Monocytes # (Manual) Eosinophils # (Manual) Basophils # (Manual) PT INR D-Dimer ABG pH POC ABG pCO2 POC ABG pO2 ABG pO2 ABG HCO3 ABG O2 Saturation ABG Base Excess ABG Hemoglobin ABG Oxyhemoglobin ABG Potassium ABG Glucose Oxyhemoglobin Carboxyhemoglobin Sodium Potassium Chloride 97.8 L Carbon Dioxide 38 H BUN Creatinine < 0.2 L Glucose 123 H POC Glucose 127 H Calcium Ferritin Total Bilirubin Alkaline Phosphatase Lactate Dehydrogenase Total Creatine Kinase CK-MB (CK-2) Rel Index Troponin T C-Reactive Protein Total Protein Albumin Prealbumin LDL Cholesterol Direct HDL Cholesterol Arterial Blood Glucose Arterial Blood Ionized Calcium Urine WBC (Auto) 04/19/20 04/19/20 04/20/20 13:41 18:33 05:56 WBC RBC Hgb Hct MCV MCH RDW Plt Count Lymph % (Auto) [place] % (Auto) Lymph # (Auto) [place] # (Auto) Seg Neutrophils % Seg Neuts % (Manual) Lymphocytes % (Manual) Monocytes % (Manual) Basophils % (Manual) Seg Neutrophils # Seg Neutrophils # Man Lymphocytes # (Manual) Monocytes # (Manual) Eosinophils # (Manual) Basophils # (Manual) PT INR D-Dimer ABG pH POC ABG pCO2 POC ABG pO2 ABG pO2 ABG HCO3 ABG O2 Saturation ABG Base Excess ABG Hemoglobin ABG Oxyhemoglobin ABG Potassium ABG Glucose Oxyhemoglobin Carboxyhemoglobin Sodium Potassium Chloride Carbon Dioxide BUN Creatinine Glucose POC Glucose 116 H 124 H 130 H Calcium Ferritin Total Bilirubin Alkaline Phosphatase Lactate Dehydrogenase Total Creatine Kinase CK-MB (CK-2) Rel Index Troponin T C-Reactive Protein Total Protein Albumin Prealbumin LDL Cholesterol Direct HDL Cholesterol Arterial Blood Glucose Arterial Blood Ionized Calcium Urine WBC (Auto) 04/20/20 04/20/20 04/20/20 06:28 06:28 11:46 WBC RBC Hgb 10.2 L Hct 31.5 L MCV 82 L MCH 27 L RDW 17.1 H Plt Count 546 H Lymph % (Auto) 10.0 L [place] % (Auto) 9.8 H Lymph # (Auto) 1.1 L [place] # (Auto) 1.1 H Seg Neutrophils % 78.4 H Seg Neuts % (Manual) Lymphocytes % (Manual) Monocytes % (Manual) Basophils % (Manual) Seg Neutrophils # 8.5 H Seg Neutrophils # Man Lymphocytes # (Manual) Monocytes # (Manual) Eosinophils # (Manual) Basophils # (Manual) PT INR D-Dimer ABG pH POC ABG pCO2 POC ABG pO2 ABG pO2 ABG HCO3 ABG O2 Saturation ABG Base Excess ABG Hemoglobin ABG Oxyhemoglobin ABG Potassium ABG Glucose Oxyhemoglobin Carboxyhemoglobin Sodium Potassium Chloride 97.0 L Carbon Dioxide 38 H BUN Creatinine < 0.2 L Glucose 138 H POC Glucose 130 H Calcium Ferritin Total Bilirubin Alkaline Phosphatase Lactate Dehydrogenase Total Creatine Kinase CK-MB (CK-2) Rel Index Troponin T C-Reactive Protein Total Protein Albumin Prealbumin LDL Cholesterol Direct HDL Cholesterol Arterial Blood Glucose Arterial Blood Ionized Calcium Urine WBC (Auto) 04/20/20 04/21/20 04/21/20 23:31 05:55 05:55 WBC RBC Hgb 10.0 L Hct 31.1 L MCV 82 L MCH 26 L RDW 17.0 H Plt Count 535 H Lymph % (Auto) [place] % (Auto) 9.2 H Lymph # (Auto) 1.1 L [place] # (Auto) Seg Neutrophils % 75.4 H Seg Neuts % (Manual) Lymphocytes % (Manual) Monocytes % (Manual) Basophils % (Manual) Seg Neutrophils # Seg Neutrophils # Man Lymphocytes # (Manual) Monocytes # (Manual) Eosinophils # (Manual) Basophils # (Manual) PT INR D-Dimer ABG pH POC ABG pCO2 POC ABG pO2 ABG pO2 ABG HCO3 ABG O2 Saturation ABG Base Excess ABG Hemoglobin ABG Oxyhemoglobin ABG Potassium ABG Glucose Oxyhemoglobin Carboxyhemoglobin Sodium Potassium Chloride 95.0 L Carbon Dioxide 34 H BUN Creatinine < 0.2 L Glucose 125 H POC Glucose 116 H Calcium Ferritin Total Bilirubin Alkaline Phosphatase Lactate Dehydrogenase Total Creatine Kinase CK-MB (CK-2) Rel Index Troponin T C-Reactive Protein Total Protein Albumin Prealbumin LDL Cholesterol Direct HDL Cholesterol Arterial Blood Glucose Arterial Blood Ionized Calcium Urine WBC (Auto) 04/22/20 04/22/20 04/22/20 00:01 07:45 07:45 WBC RBC Hgb 10.0 L Hct 30.7 L MCV 81 L MCH 27 L RDW 17.1 H Plt Count 490 H Lymph % (Auto) [place] % (Auto) Lymph # (Auto) [place] # (Auto) Seg Neutrophils % Seg Neuts % (Manual) 75.0 H Lymphocytes % (Manual) 11.0 L Monocytes % (Manual) 9.0 H Basophils % (Manual) Seg Neutrophils # Seg Neutrophils # Man Lymphocytes # (Manual) 0.8 L Monocytes # (Manual) Eosinophils # (Manual) Basophils # (Manual) PT INR D-Dimer ABG pH POC ABG pCO2 POC ABG pO2 ABG pO2 ABG HCO3 ABG O2 Saturation ABG Base Excess ABG Hemoglobin ABG Oxyhemoglobin ABG Potassium ABG Glucose Oxyhemoglobin Carboxyhemoglobin Sodium Potassium Chloride 96.3 L Carbon Dioxide 40 H BUN Creatinine < 0.2 L Glucose 109 H POC Glucose 110 H Calcium Ferritin Total Bilirubin Alkaline Phosphatase Lactate Dehydrogenase Total Creatine Kinase CK-MB (CK-2) Rel Index Troponin T C-Reactive Protein Total Protein Albumin Prealbumin LDL Cholesterol Direct HDL Cholesterol Arterial Blood Glucose Arterial Blood Ionized Calcium Urine WBC (Auto) 04/23/20 04/23/20 04/23/20 04:28 04:28 04:28 WBC RBC 3.64 L Hgb 9.7 L Hct 29.4 L MCV 81 L MCH 27 L RDW 17.2 H Plt Count 527 H Lymph % (Auto) [place] % (Auto) 8.9 H Lymph # (Auto) [place] # (Auto) Seg Neutrophils % Seg Neuts % (Manual) Lymphocytes % (Manual) Monocytes % (Manual) Basophils % (Manual) Seg Neutrophils # Seg Neutrophils # Man Lymphocytes # (Manual) Monocytes # (Manual) Eosinophils # (Manual) Basophils # (Manual) PT INR D-Dimer ABG pH POC ABG pCO2 POC ABG pO2 ABG pO2 ABG HCO3 ABG O2 Saturation ABG Base Excess ABG Hemoglobin ABG Oxyhemoglobin ABG Potassium ABG Glucose Oxyhemoglobin Carboxyhemoglobin Sodium Potassium Chloride 96.4 L Carbon Dioxide 32 H D BUN Creatinine < 0.2 L Glucose 134 H POC Glucose Calcium Ferritin Total Bilirubin Alkaline Phosphatase Lactate Dehydrogenase Total Creatine Kinase CK-MB (CK-2) Rel Index Troponin T 0.151 H* C-Reactive Protein Total Protein Albumin Prealbumin LDL Cholesterol Direct HDL Cholesterol 29 L Arterial Blood Glucose Arterial Blood Ionized Calcium Urine WBC (Auto) 04/23/20 04/23/20 04/24/20 06:03 23:41 05:28 WBC RBC 3.56 L Hgb 9.5 L Hct 28.9 L MCV 81 L MCH 27 L RDW 17.4 H Plt Count 462 H Lymph % (Auto) [place] % (Auto) Lymph # (Auto) [place] # (Auto) Seg Neutrophils % Seg Neuts % (Manual) 80.0 H Lymphocytes % (Manual) Monocytes % (Manual) Basophils % (Manual) Seg Neutrophils # Seg Neutrophils # Man Lymphocytes # (Manual) Monocytes # (Manual) Eosinophils # (Manual) Basophils # (Manual) PT INR D-Dimer ABG pH POC ABG pCO2 POC ABG pO2 ABG pO2 ABG HCO3 ABG O2 Saturation ABG Base Excess ABG Hemoglobin ABG Oxyhemoglobin ABG Potassium ABG Glucose Oxyhemoglobin Carboxyhemoglobin Sodium Potassium Chloride Carbon Dioxide BUN Creatinine Glucose POC Glucose 132 H 117 H Calcium Ferritin Total Bilirubin Alkaline Phosphatase Lactate Dehydrogenase Total Creatine Kinase CK-MB (CK-2) Rel Index Troponin T C-Reactive Protein Total Protein Albumin Prealbumin LDL Cholesterol Direct HDL Cholesterol Arterial Blood Glucose Arterial Blood Ionized Calcium Urine WBC (Auto) 04/24/20 04/24/20 04/24/20 05:28 05:28 05:33 WBC RBC Hgb Hct MCV MCH RDW Plt Count Lymph % (Auto) [place] % (Auto) Lymph # (Auto) [place] # (Auto) Seg Neutrophils % Seg Neuts % (Manual) Lymphocytes % (Manual) Monocytes % (Manual) Basophils % (Manual) Seg Neutrophils # Seg Neutrophils # Man Lymphocytes # (Manual) Monocytes # (Manual) Eosinophils # (Manual) Basophils # (Manual) PT INR D-Dimer ABG pH POC ABG pCO2 POC ABG pO2 ABG pO2 ABG HCO3 ABG O2 Saturation ABG Base Excess ABG Hemoglobin ABG Oxyhemoglobin ABG Potassium ABG Glucose Oxyhemoglobin Carboxyhemoglobin Sodium Potassium Chloride 96.1 L Carbon Dioxide 40 H D BUN Creatinine < 0.2 L Glucose 115 H POC Glucose 109 H Calcium Ferritin Total Bilirubin Alkaline Phosphatase Lactate Dehydrogenase Total Creatine Kinase CK-MB (CK-2) Rel Index Troponin T 0.181 H* C-Reactive Protein Total Protein Albumin Prealbumin LDL Cholesterol Direct HDL Cholesterol Arterial Blood Glucose Arterial Blood Ionized Calcium Urine WBC (Auto) 04/24/20 04/24/20 04/25/20 11:17 18:23 00:12 WBC RBC Hgb Hct MCV MCH RDW Plt Count Lymph % (Auto) [place] % (Auto) Lymph # (Auto) [place] # (Auto) Seg Neutrophils % Seg Neuts % (Manual) Lymphocytes % (Manual) Monocytes % (Manual) Basophils % (Manual) Seg Neutrophils # Seg Neutrophils # Man Lymphocytes # (Manual) Monocytes # (Manual) Eosinophils # (Manual) Basophils # (Manual) PT INR D-Dimer ABG pH POC ABG pCO2 POC ABG pO2 ABG pO2 ABG HCO3 ABG O2 Saturation ABG Base Excess ABG Hemoglobin ABG Oxyhemoglobin ABG Potassium ABG Glucose Oxyhemoglobin Carboxyhemoglobin Sodium Potassium Chloride Carbon Dioxide BUN Creatinine Glucose POC Glucose 117 H 109 H 113 H Calcium Ferritin Total Bilirubin Alkaline Phosphatase Lactate Dehydrogenase Total Creatine Kinase CK-MB (CK-2) Rel Index Troponin T C-Reactive Protein Total Protein Albumin Prealbumin LDL Cholesterol Direct HDL Cholesterol Arterial Blood Glucose Arterial Blood Ionized Calcium Urine WBC (Auto) 04/25/20 04/25/20 04/25/20 06:34 06:34 11:28 WBC 11.7 H RBC Hgb 10.0 L Hct 31.7 L MCV 82 L MCH 26 L RDW 17.5 H Plt Count 564 H Lymph % (Auto) [place] % (Auto) Lymph # (Auto) [place] # (Auto) Seg Neutrophils % Seg Neuts % (Manual) 78.0 H Lymphocytes % (Manual) 10.0 L Monocytes % (Manual) 9.0 H Basophils % (Manual) Seg Neutrophils # Seg Neutrophils # Man 9.1 H Lymphocytes # (Manual) Monocytes # (Manual) 1.1 H Eosinophils # (Manual) Basophils # (Manual) PT INR D-Dimer ABG pH POC ABG pCO2 POC ABG pO2 ABG pO2 ABG HCO3 ABG O2 Saturation ABG Base Excess ABG Hemoglobin ABG Oxyhemoglobin ABG Potassium ABG Glucose Oxyhemoglobin Carboxyhemoglobin Sodium Potassium Chloride Carbon Dioxide 39 H BUN Creatinine < 0.2 L Glucose 103 H POC Glucose 112 H Calcium Ferritin Total Bilirubin Alkaline Phosphatase Lactate Dehydrogenase Total Creatine Kinase CK-MB (CK-2) Rel Index Troponin T C-Reactive Protein Total Protein Albumin Prealbumin LDL Cholesterol Direct HDL Cholesterol Arterial Blood Glucose Arterial Blood Ionized Calcium Urine WBC (Auto) 04/27/20 04/27/20 04/27/20 11:48 17:08 23:31 WBC RBC Hgb Hct MCV MCH RDW Plt Count Lymph % (Auto) [place] % (Auto) Lymph # (Auto) [place] # (Auto) Seg Neutrophils % Seg Neuts % (Manual) Lymphocytes % (Manual) Monocytes % (Manual) Basophils % (Manual) Seg Neutrophils # Seg Neutrophils # Man Lymphocytes # (Manual) Monocytes # (Manual) Eosinophils # (Manual) Basophils # (Manual) PT INR D-Dimer ABG pH POC ABG pCO2 POC ABG pO2 ABG pO2 ABG HCO3 ABG O2 Saturation ABG Base Excess ABG Hemoglobin ABG Oxyhemoglobin ABG Potassium ABG Glucose Oxyhemoglobin Carboxyhemoglobin Sodium Potassium Chloride Carbon Dioxide BUN Creatinine Glucose POC Glucose 124 H 118 H 122 H Calcium Ferritin Total Bilirubin Alkaline Phosphatase Lactate Dehydrogenase Total Creatine Kinase CK-MB (CK-2) Rel Index Troponin T C-Reactive Protein Total Protein Albumin Prealbumin LDL Cholesterol Direct HDL Cholesterol Arterial Blood Glucose Arterial Blood Ionized Calcium Urine WBC (Auto) 04/28/20 04/29/20 04/29/20 05:42 00:14 05:30 WBC RBC Hgb Hct MCV MCH RDW Plt Count Lymph % (Auto) [place] % (Auto) Lymph # (Auto) [place] # (Auto) Seg Neutrophils % Seg Neuts % (Manual) Lymphocytes % (Manual) Monocytes % (Manual) Basophils % (Manual) Seg Neutrophils # Seg Neutrophils # Man Lymphocytes # (Manual) Monocytes # (Manual) Eosinophils # (Manual) Basophils # (Manual) PT INR D-Dimer ABG pH POC ABG pCO2 POC ABG pO2 ABG pO2 ABG HCO3 ABG O2 Saturation ABG Base Excess ABG Hemoglobin ABG Oxyhemoglobin ABG Potassium ABG Glucose Oxyhemoglobin Carboxyhemoglobin Sodium Potassium Chloride Carbon Dioxide BUN Creatinine Glucose POC Glucose 122 H 115 H 123 H Calcium Ferritin Total Bilirubin Alkaline Phosphatase Lactate Dehydrogenase Total Creatine Kinase CK-MB (CK-2) Rel Index Troponin T C-Reactive Protein Total Protein Albumin Prealbumin LDL Cholesterol Direct HDL Cholesterol Arterial Blood Glucose Arterial Blood Ionized Calcium Urine WBC (Auto) 04/30/20 05/01/20 05/01/20 00:29 05:39 12:30 WBC RBC Hgb Hct MCV MCH RDW Plt Count Lymph % (Auto) [place] % (Auto) Lymph # (Auto) [place] # (Auto) Seg Neutrophils % Seg Neuts % (Manual) Lymphocytes % (Manual) Monocytes % (Manual) Basophils % (Manual) Seg Neutrophils # Seg Neutrophils # Man Lymphocytes # (Manual) Monocytes # (Manual) Eosinophils # (Manual) Basophils # (Manual) PT INR D-Dimer ABG pH POC ABG pCO2 POC ABG pO2 ABG pO2 ABG HCO3 ABG O2 Saturation ABG Base Excess ABG Hemoglobin ABG Oxyhemoglobin ABG Potassium ABG Glucose Oxyhemoglobin Carboxyhemoglobin Sodium Potassium Chloride Carbon Dioxide BUN Creatinine Glucose POC Glucose 106 H 109 H 108 H Calcium Ferritin Total Bilirubin Alkaline Phosphatase Lactate Dehydrogenase Total Creatine Kinase CK-MB (CK-2) Rel Index Troponin T C-Reactive Protein Total Protein Albumin Prealbumin LDL Cholesterol Direct HDL Cholesterol Arterial Blood Glucose Arterial Blood Ionized Calcium Urine WBC (Auto) 05/01/20 05/03/20 05/03/20 23:35 05:09 11:36 WBC RBC Hgb Hct MCV MCH RDW Plt Count Lymph % (Auto) [place] % (Auto) Lymph # (Auto) [place] # (Auto) Seg Neutrophils % Seg Neuts % (Manual) Lymphocytes % (Manual) Monocytes % (Manual) Basophils % (Manual) Seg Neutrophils # Seg Neutrophils # Man Lymphocytes # (Manual) Monocytes # (Manual) Eosinophils # (Manual) Basophils # (Manual) PT INR D-Dimer ABG pH POC ABG pCO2 POC ABG pO2 ABG pO2 ABG HCO3 ABG O2 Saturation ABG Base Excess ABG Hemoglobin ABG Oxyhemoglobin ABG Potassium ABG Glucose Oxyhemoglobin Carboxyhemoglobin Sodium Potassium Chloride Carbon Dioxide BUN Creatinine Glucose POC Glucose 116 H 117 H 116 H Calcium Ferritin Total Bilirubin Alkaline Phosphatase Lactate Dehydrogenase Total Creatine Kinase CK-MB (CK-2) Rel Index Troponin T C-Reactive Protein Total Protein Albumin Prealbumin LDL Cholesterol Direct HDL Cholesterol Arterial Blood Glucose Arterial Blood Ionized Calcium Urine WBC (Auto) 05/03/20 05/03/20 14:06 14:06 WBC 12.5 H RBC Hgb 10.0 L Hct 31.2 L MCV 80 L MCH 26 L RDW 17.6 H Plt Count 488 H Lymph % (Auto) [place] % (Auto) Lymph # (Auto) [place] # (Auto) Seg Neutrophils % Seg Neuts % (Manual) Lymphocytes % (Manual) Monocytes % (Manual) Basophils % (Manual) Seg Neutrophils # Seg Neutrophils # Man Lymphocytes # (Manual) Monocytes # (Manual) Eosinophils # (Manual) Basophils # (Manual) PT INR D-Dimer ABG pH POC ABG pCO2 POC ABG pO2 ABG pO2 ABG HCO3 ABG O2 Saturation ABG Base Excess ABG Hemoglobin ABG Oxyhemoglobin ABG Potassium ABG Glucose Oxyhemoglobin Carboxyhemoglobin Sodium Potassium Chloride 95.4 L Carbon Dioxide 40 H BUN Creatinine < 0.2 L Glucose 121 H POC Glucose Calcium Ferritin Total Bilirubin Alkaline Phosphatase Lactate Dehydrogenase Total Creatine Kinase CK-MB (CK-2) Rel Index Troponin T C-Reactive Protein Total Protein Albumin Prealbumin LDL Cholesterol Direct HDL Cholesterol Arterial Blood Glucose Arterial Blood Ionized Calcium Urine WBC (Auto) Allied health notes reviewed: nursing
[2020-05-03] MEDS: ZOLPIDEM 5 MG TAB PO PRN (22:24)
[2020-05-03] MEDS: ENOXAPARIN 40 MG/0.4 ML INJ SUB-Q SCH (22:25)
[2020-05-03] MEDS: SENNOSIDES 8.6 MG TAB PO SCH (22:25)
[2020-05-04] MEDS: MORPHINE 2 MG/1 ML INJ IV PRN ×4 (04:40→23:08)
[2020-05-04] MEDS: ALPRAZolam 0.5 MG TAB PO PRN ×2 (06:37→17:35)
[2020-05-04] MEDS: traMADol 50 MG TAB PO PRN ×2 (06:37→17:35)
[2020-05-04] MEDS: DOCUSATE SODIUM 100 MG/10 ML ORAL LIQD FEEDTUBE SCH ×2 (09:44→23:14)
[2020-05-04] MEDS: METOPROLOL TARTRATE 25 MG TAB PO SCH ×2 (09:45→23:15)
[2020-05-04] MEDS: TAMSULOSIN 0.4 MG CAP PO SCH (09:45)
[2020-05-04] MEDS: LANSOPRAZOLE 30 MG SOLUTAB FEEDTUBE SCH (09:45)
[2020-05-04] MEDS: PREGABALIN 75 MG CAP PO SCH ×2 (09:45→23:16)
[2020-05-04] MEDS: GLYCOPYRROLATE 1 MG TAB PO SCH ×3 (09:45→23:14)
[2020-05-04] MEDS: ASPIRIN EC 81 MG TAB PO SCH (09:47)
[2020-05-04] MEDS: BACLOFEN 10 MG TAB PO SCH ×2 (09:47→23:15)
[2020-05-04] MEDS: SODIUM HYPOCHLORITE, DAKIN'S 1/2 STRENGTH (0.25%) 473 ML TOPICAL SOLN TP SCH ×2 (09:47→23:12)
[2020-05-04] MEDS: MAGIC MOUTHWASH 30ML PO SCH ×3 (09:48→23:12)
[2020-05-04] MEDS: LIDOCAINE 5% 1 EACH PATCH TD SCH (09:49)
--- NOTE | 2020-05-04 19:09 | Progress Note ---
Assessment and Plan --Acute hypoxic hypercapnic respiratory failure; Intubated on mechanical ventilation. Etiology secondary to sepsis, ALS, multifocal pneumonia (Covid negative). S/p trach placement 03/07/20 --Status post cardiac arrest on 02/25, cardiac hernandez now stable --Dysphagia, status post PEG placement for tube feeding --ALS; Chronic Continue to provide supportive care --Elevated D-dimers; CTA chest, lower extremity venous Doppler both are negative Lovenox for DVT prophylaxis --Bilateral pneumonia; probably community-acquired Completed treatment ID recommendations appreciated --Sepsis secondary to pneumonia s/p empiric antibiotic --Elevated troponin; Serial cardiac enzymes, serial EKGs Echocardiogram, cardiology consult if needed --Hypernatremia Trend sodium Free water via feeding tube --Abdominal distention due to bladder outlet obstruction, resolved CT abdomen showed bladder outlet obstruction, urology consulted s/p drake placement by urology on 03/09 --Hypotension possibly from septic shock and bladder outlet obstruction improved following placing drake --Hypernatremia due to hypovolumia, resolved free water with TF --Constipation; Patient already received Dulcolax suppository and Colace Received milk of magnesia, with relief --DVT prophylaxis; Lovenox Brief history: 59-year-old male patient with significant past medical history of ALS, presented to ED with worsening shortness of breath since the morning [employer]. Patient was on a trilogy machine for breathing 18/11. EMS arrived, patient had O2 sats in the 80s. EMS attempted to place patient on their CPAP machine, however patient did not tolerate. Patient was admitted to the ICU with diagnosis of acute hypoxic respiratory failure and placed on BiPAP. Patient initially tolerated but later deteriorated with respiratory status. CTA chest showed no PE but significant for bilateral pneumonia. Doppler ultrasound also negative for DVT. COVID-19 test ordered and negative. Due to persistent hypoxia and asystolic/V. fib cardiac arrest, patient was intubated on 02/26/2020 at 1500. Patient now on mechanical ventilation in the ICU s/p trach placement and now unable to wean off from the mechanical ventilation. Patient now status post PEG placement for tube feeding. Patient most likely need long-term placement -LTAC versus SNF Daily course: 02/25/2020. CTA of the chest reveals no PE but does illustrate the bilateral pneumonia. Doppler ultrasound also negative for DVT. Blood cultures are pe nding. Await COVID-19 testing. Patient currently requiring BiPAP IPAP 24/EPAP 6 with FiO2 of 25%. Continue O2 and BiPAP as clinically indicated. ID and pulmonary consulted. 02/26/2020. Blood cultures are negative x48 hours and Covid testing negative as well. Continue antibiotics per ID recommendations for community-acquired bilateral pneumonia. Cardiology consultation for elevated troponin. Check echocardiogram. 02/27/2020. Events of yesterday noted with asystole following V. fib arrest. Patient currently on AC mode rate 20, tidal volume 400, FiO2 50% and a PEEP of 6. Follow-up echocardiogram for elevated troponin. Cardiology suspects NSTEMI Type 2 in the setting of acute resp failure. Chest CTA and BLE Dopplers neg. we will discontinue Decadron given the Covid PCR is negative. 02/28/2020. I spoke with the sister Felisa Eli who is the power of health information technologist regarding advanced directives and she instructed me that she would like to continue with aggressive care at this time. I informed her of the guarded prognosis and high mortality/morbidity and she voiced understanding. Patient currently with AC mode ventilation rate 18, tidal volume 400, FiO2 40% and a PEEP of 6. Continue antibiotics for pneumonia. ID previously consulted. Also consult neurology with regards to ALS. 02/29/2020; patient is intubated and on CPAP patient is alert and oriented. Patient has ALS. Dr. Álvarez spoke with his sister and she wants aggressive care. Continue antibiotics for pneumonia. Neurology consulted for ALS. Prognosis poor 03/01/2020; patient is intubated and on CPAP, patient is alert and oriented. I spoke with his 2 sisters about the management plan. 03/02/2020; patient is intubated and on CPAP. Patient was alert and oriented. I spoke with Dr. mohr and he thinks patient may need mechanical ventilation, likely his disease progressed. Dr. Flowers did debridement this morning. 03/03/2020; patient is intubated and on CPAP, patient was on trilogy and BiPAP at home. Patient has ALS. on spontaneous breathing trial. Patient is alert and oriented but quadriplegic. Patient has severe bilateral pneumonia and is on cefepime and Vanco, ID is following. Patient has sacral decubitus ulcer and debridement was done by Dr. Flowers and there is no osteomyelitis. 03/05. Patient still on broad-spectrum antibiotics. Status post sacral decubitus ulcer debridements-no osteomyelitis. Patient is on AC 25/400/30% PEEP 5. No blood gas results today. 03/06. Plan for tracheostomy by surgery. Still remains intubated. Labs reviewed-sodium 150. Started on free water 200 every 8hr. trend sodium. 03/07: s/p trach placement today, patient placed back on mechanical ventilation with trach. Plan to resume tube feeding with NG tube. Continue to monitor vitals, monitor BMP. 03/08: Patient noted to have distended abdomen with low urinary output. Obtain bladder scan rule out urine retention, UA and urine culture, continue to follow clinically. 03/09: Patient noted to have low blood pressure with SBP as low as 70s. Ordered for 500 mils normal saline bolus. CT abdomen showed bladder outlet obstruction, urology consulted. 03/10: placed on drake by urology o/n, improved urine outpt. cont to monitor BMP. resuded TF - cont free water with TF. wean off from vent as tolerated. 03/11: Vitals stable. cont TF, wean off from vent as tolerated. start on 1/2 NS for hypernatremia - follow BMP 03/12: wean off vent as tolerated, plan for speech eval, cont Tf for now, cont iv fluid 03/13: unable to wean off from vent, unable to do speech therapy eval. will need PEG tube, cont supportive care for now, cont NG tube feeding 03/14: consulted GI for PEg placemnet, cont supportive care. remains on vent at night 03/15: Discussed with GI, plan for PEG tube placement possibly tomorrow. Continue supportive care and wean off from vent as tolerated. Hold Lovenox dose tonight. 03/16: family didnot consent for PEG placement yesterday. I spoke with the megan rodriguez today and she is now agreeable for PEG tube. I explained the necessity of the procedure with RN to the patient also and he nodded started on tube feeding, for the procedure. will cont supportive care. planned for PEG tube placement tomorrow. 03/17: s/p PEG placement today, patient tolerated well, cont supportive care 03/18: Started on tube feeding with new PEG tube, continue to wean off vent as tolerated 03/19: cont to monitor with supportive care, wean off vent as tolerated 03/20: Continue to wean off vent as tolerated -but failing weaning trial. Still requiring vent support at night. Currently on PEG tube for tube feed. 03/21. Pt with PSV trials with FiO@ 30%, PEEP 6, PS 10. Currently on PEG tube for tube feed. 03/22/2020. Continue PSV trials per pulmonary. Continue bronchodilators. Patient tolerating tube feedings. Continue Robinul for secretion control. 03/23/2020. Continue PSV trials per pulmonary. Continue bronchodilators. Continue Scopolamine and Robinul for secretion control. Trach care/airway management. Mobility protocols for pressure ulcer prophylaxis. LTAC evaluation per case management 03/24/2020. Continue PSV trials with current settings pressure support 10, PEEP 6 and FiO2 30%. Continue bronchodilators/nebulizer. Continue Scopolamine and Robinul for secretion control. Trach care/airway management. Mobility protocols for pressure ulcer prophylaxis. LTAC evaluation per case management 03/25/2020. Pulmonary to proceed with T-piece trials today. Continue bronchodilators/nebulizer. Continue Scopolamine and Robinul for secretion control. Trach care/airway management. Mobility protocols for pressure ulcer prophylaxis. 03/26/2020. Patient currently with PSV 10/6 at FiO2 of 30%. Continue weaning and T-piece trials per protocol. Continue bronchodilators/nebulizer. Continue Scopolamine and Robinul for secretion control. Trach care/airway management. Mobility protocols for pressure ulcer prophylaxis. Continue tube feeding with aspiration precautions. 03/27/2020. Patient currently with PSV 10/6 at FiO2 of 30%. Continue weaning and T-piece trials per protocol. Continue bronchodilators/nebulizer. Continue Scopolamine and Robinul for secretion control. Trach care/airway management. Mobility protocols for pressure ulcer prophylaxis. Continue tube feeding with aspiration precautions. 03/28. Had temp 100.7F. He has been off antibiotics. Will send blood culture, ua, urine culture and chest xray. Had chest pain overnight and trop was elevated as well. Cardiology to evaluate 03/29. Has back pain due to position. He mentions his chest pain is positional. Has no other complaints. Still on mechanical ventilation 03/30. No chest pain today. Labs reviewed. Discussed chest pain with cardiology and team advised no further work up at this time. Can follow up with cardiology in the office after hospitalization 03/31. Lidocaine patch for lower back pain. 04/01. Discharge planning underway. CM notes reviewed. Discussed with daughter 04/02. CM trying to arrange discharge. Continue PSV trials. Discussed with patients significant other 04/04/2020; CM is working for discharge arrangement. Continue PSV trials. 04/05/2020; patient was seen and evaluated this morning and no change from baseline. Continue with PSV trials. Follow with drag out man for discharge planning. 04/06/2020;patient was seen and evaluated this morning and no change from baseline. Continue with PSV trials. Follow with drag out man for discharge planning. 04/07/2020; patient was seen and evaluated this morning and no change from baseline. Continue with PSV trials. Follow with drag out man for discharge planning. 04/08/2020; patient is vent dependent. Discharge is per drag out man. 04/09/2020 patient is vent dependent, possible LTAC placement 04/10/2020; tracheostomy on vent, vent dependent pending LTAC placement 04/11/2020; clinically no change, tracheostomy on ventilatory support, wean as tolerated, awaiting placement 04/12/2020; remains on ventilatory support, unable to wean, patient wants to see a speech therapist for sound box However we cannot try that as long as he is on ventilatory support, once he is weaned off vent We will consult speech therapist, plan of care reviewed with the patient and his nurse 04/14/2020; clinically no change, on ventilatory support, complains of constipation, milk of magnesia Closely monitor the patient and adjust the management as needed 04/15/2020; patient has some oral thrush on the tongue, will give Magic mouthwash/nystatin swish and spit Wean off vent as tolerated 04/16 patient is alert and oriented, unable to comprehend what he is trying to tell but appears to complain of some pain, no acute events overnight, all interdisciplinary notes reviewed. Waiting for LTAC versus long-term facility placement 04/17/2020. Continue supportive care with mechanical ventilation. Patient currently on AC mode rate 10, tidal volume 400 FiO2 30% with a PEEP of 6. Discharge planning per case management. 04/18/2020. Patient remains on mechanical ventilation AC mode rate 10, tidal volume 400, FiO2 30% and PEEP of 6. Continue spontaneous breathing trials as tolerated. Previously, patient was considered for discharge home with skilled staff providing care for 12 hours 7 days/week. Continue discussed with case management discharge planning. 04/19/20. Patient remains on mechanical ventilation AC mode rate 10, tidal volume 400, FiO2 30% and PEEP of 6. Continue spontaneous breathing trials as tolerated. 04/20/2020. Patient remains on mechanical ventilation AC mode rate 10, tidal volume 400, FiO2 30% and PEEP of 6. Continue spontaneous breathing trials as tolerated. 04/21/2020. Patient remains on mechanical ventilation AC mode rate 10, tidal volume 400, FiO2 30% and PEEP of 6. Continue tracheostomy care, secretion control and airway management. Continue spontaneous breathing trials as tolerated. 04/22/2020. Patient remains on mechanical ventilation AC mode rate 10, tidal volume 400, FiO2 30% and PEEP of 6. Continue tracheostomy care, secretion control and airway management. Continue spontaneous breathing trials as tolera milana. 04/23/2020. Patient on mechanical ventilation AC mode rate 18, tidal volume 450, FiO2 30% and PEEP of 6. Continue tracheostomy care, secretion control and airway management. Continue spontaneous breathing trials as tolerated. Continue Robinul and scopolamine for secretions. Continue baclofen. 04/24/2020. Patient remains on AC mode ventilation rate 10, tidal volume 400, FiO2 30% and PEEP of 6. Continue tracheostomy care, secretion control and airway management. Continue spontaneous breathing trials as tolerated. Continue Robinul and scopolamine for secretions. Continue baclofen. Continue Xanax for anxiety and Ambien for sleep. Await case management follow-up with regards to discharge planning. 04/25/2020. Patient remains on AC mode ventilation rate 10, tidal volume 400, FiO2 30% and PEEP of 6. Continue tracheostomy care, secretion control and airway management. Continue spontaneous breathing trials as tolerated. Continue Robinul and scopolamine for secretions. Continue baclofen. Continue Xanax for anxiety and Ambien for sleep. Await case management follow-up with regards to discharge planning. 04/26. Patient remains on AC mode ventilation rate 10, tidal volume 400, FiO2 30% and PEEP of 6. Continue tracheostomy care, secretion control and airway management. Continue spontaneous breathing trials as tolerated. Continue Robinul and scopolamine for secretions. Continue baclofen. Continue Xanax for anxiety and Ambien for sleep. Await case management follow-up with regards to discharge planning. 04/27. Patient remains on AC mode ventilation rate 10, tidal volume 400, FiO2 30% and PEEP of 6. Continue tracheostomy care, secretion control and airway management. Continue spontaneous breathing trials as tolerated. Continue Robinul and scopolamine for secretions. Continue baclofen. Continue Xanax for anxiety and Ambien for sleep. Await case management follow-up with regards to discharge planning. 04/28/20 no acute events overnight, remains vent dependent, cardiology and pulmonary notes reviewed 04/29 remains intubated via tracheostomy, no acute events 04/30 no acute events overnight, cardiology note reviewed, remains vent dependent, discharge planning per case management 05/01 stable. cardiology and pulmonary notes reviewed. D/C acu-checks 05/02 - todate: Clinically stable, CM working on placement. Continue supportive care. Subjective Date of service: 05/04/20 Principal diagnosis: Ac on Ch Hypercapnic & hypoxemic Resp Failure; Severe Sepsis; Jamar PNA; ALS Interval history: Patient seen and examined Remains on trach tube Discussed with RN at the bedside Vitals reviewed -BP stable Tolerating tube feeding with PEG tube Objective - Exam Narrative Exam: GENERAL: Awake. Intubated with trach tube HEAD: No signs of head trauma. EYES: Pupils are equal. Extraocular motions intact. EARS: Hearing grossly intact. MOUTH: Oropharynx is normal. NECK: No adenopathy, no JVD. CHEST: Coarse breath sounds bilaterally CARDIAC: Regular rate and rhythm. S1 and S2, without murmurs, gallops, or rubs. VASCULAR: No Edema. Peripheral pulses normal and equal in all extremities. ABDOMEN: Soft, non tender and nondistended. Bowel Sounds normal. PEG in place NEUROLOGIC EXAM: Awake, paraplegic SKIN: No obvious lesions - Constitutional Vitals: Vital Signs - 12hr 05/04/20 05/04/20 05/04/20 07:37 08:00 08:10 Temperature 97.5 F L Pulse Rate 105 H 106 H Pulse Rate [ 106 H From Monitor] Respiratory 16 13 18 Rate Blood Pressure 119/90 O2 Sat by Pulse 97 97 Oximetry O2 Sat by Pulse 97 Oximetry [ Assessment] 05/04/20 05/04/20 05/04/20 09:00 09:45 10:00 Temperature Pulse Rate 116 H 116 H 121 H Pulse Rate [ From Monitor] Respiratory 24 16 Rate Blood Pressure 120/80 124/80 124/80 O2 Sat by Pulse 97 95 Oximetry O2 Sat by Pulse Oximetry [ Assessment] 05/04/20 05/04/20 05/04/20 11:00 12:00 12:07 Temperature 97.6 F Pulse Rate 106 H 113 H 102 H Pulse Rate [ 107 H From Monitor] Respiratory 17 20 24 Rate Blood Pressure 111/71 108/74 O2 Sat by Pulse 95 97 98 Oximetry O2 Sat by Pulse Oximetry [ Assessment] 05/04/20 05/04/20 05/04/20 13:00 14:00 15:00 Temperature Pulse Rate 98 H 111 H 120 H Pulse Rate [ From Monitor] Respiratory 23 24 24 Rate Blood Pressure 116/71 113/77 114/81 O2 Sat by Pulse 97 95 95 Oximetry O2 Sat by Pulse Oximetry [ Assessment] 05/04/20 05/04/20 05/04/20 16:00 17:00 18:00 Temperature 98 F Pulse Rate 119 H 119 H 123 H Pulse Rate [ 119 H From Monitor] Respiratory 21 23 19 Rate Blood Pressure 117/70 115/79 115/59 O2 Sat by Pulse 98 98 92 Oximetry O2 Sat by Pulse 97 Oximetry [ Assessment] 05/04/20 19:00 Temperature Pulse Rate 123 H Pulse Rate [ From Monitor] Respiratory 19 Rate Blood Pressure 116/62 O2 Sat by Pulse 98 Oximetry O2 Sat by Pulse Oximetry [ Assessment] - Labs CBC & Chem 7: 05/03/20 14:06 05/03/20 14:06 Labs: Abnormal lab results 05/03/20 05/04/20 05/04/20 Range/Units 23:39 11:31 16:57 POC Glucose 107 H 113 H 126 H (70-105) mg/dL HEART Score - HEART Score Troponin: Troponin T 0.181 ng/mL (0.00-0.029) H* 04/24/20 05:28
[2020-05-04] MEDS: SENNOSIDES 8.6 MG TAB PO SCH (23:13)
[2020-05-04] MEDS: ENOXAPARIN 40 MG/0.4 ML INJ SUB-Q SCH (23:14)
[2020-05-04] MEDS: ZOLPIDEM 5 MG TAB PO PRN (23:16)
[2020-05-05] MEDS: MORPHINE 2 MG/1 ML INJ IV PRN ×4 (04:28→23:18)
[2020-05-05] MEDS: ALPRAZolam 0.5 MG TAB PO PRN ×2 (05:19→18:56)
[2020-05-05] MEDS: BACLOFEN 10 MG TAB PO SCH ×2 (10:51→23:25)
[2020-05-05] MEDS: MAGIC MOUTHWASH 30ML PO SCH ×3 (10:51→23:21)
[2020-05-05] MEDS: DOCUSATE SODIUM 100 MG/10 ML ORAL LIQD FEEDTUBE SCH ×2 (10:52→23:27)
[2020-05-05] MEDS: LANSOPRAZOLE 30 MG SOLUTAB FEEDTUBE SCH (10:52)
[2020-05-05] MEDS: GLYCOPYRROLATE 1 MG TAB PO SCH ×3 (10:52→23:27)
[2020-05-05] MEDS: ASPIRIN EC 81 MG TAB PO SCH (10:52)
[2020-05-05] MEDS: PREGABALIN 75 MG CAP PO SCH ×2 (10:52→23:28)
[2020-05-05] MEDS: TAMSULOSIN 0.4 MG CAP PO SCH (10:52)
[2020-05-05] MEDS: METOPROLOL TARTRATE 25 MG TAB PO SCH ×2 (10:52→23:25)
[2020-05-05] MEDS: LIDOCAINE 5% 1 EACH PATCH TD SCH (10:53)
[2020-05-05] MEDS: SCOPOLAMINE TRANSDERMAL PATCH 72 HR TD SCH (10:54)
[2020-05-05] MEDS: SODIUM HYPOCHLORITE, DAKIN'S 1/2 STRENGTH (0.25%) 473 ML TOPICAL SOLN TP SCH ×2 (10:56→23:26)
--- NOTE | 2020-05-05 13:30 | Progress Note ---
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 Respiratory Failure Severe Sepsis with Shock Bilateral Pneumonia (Possible aspiration) History of ALS on Trilogy Oropharyngeal Dysphagia PUI-COVID Acute toxic metabolic encephalopathy Elevated D-dimer Elevated troponin possibly type 2 ischemia - no new issues, discharge planning still ongoing for home ventilator - remains ventilator dependent; continue care as below: - continue home meds re: chronic pain (Baclofen, Lyrica) - continue daily SBT's as tolerated; t-piece trial attempts as tolerated (PSV if fails) - repeat CXR prn +/- bronchoscopy for mucus plugging / large volume atelectasis - continue psychoactive meds for anxiolysis - continue Robinul & scopolamine for secretion control - prn electrolytes and optimize K+ & Mg 2+ for best respiratory muscle function - wound care per RN/WCN - wean supplemental oxygen for target O2 sat's > 90% acutely - bronchodilators with pulmonary hygiene per RT - VAP bundle addressed - continue lung protective strategies - continue bronchodilators with pulmonary hygiene per RT - wean per pulmonary driven protocols otherwise - sedation prn for target RASS 0 to -1 - s/p empiric antiinfectives per ID rec's (Rocephin and Zithromax) - s/p COVID-19 isolation (Airborne & Contact) - s/p Dexamethasone - enteral nutrition at goal rate as tolerated - accuchecks with glycemic control per SSI (While critically ill target blood glucose of 140-180 mg/dL; avoid hypoglycemia) - avoid nephrotoxins, renally dose all medications - avoid benzodiazepine's, reduce the possibility of delirium - prn analgesia per CPOT score - Maintenance of sleep-wake cycle, avoid delirium - aspiration precautions - G.I. & VTE prophylaxis - PT/OT/ROM exercises - mobility protocols for pressure ulcer prophylaxis - Monitor hemodynamics closely - continue other care per attending / other consultants - discharge planning ongoing concurrently .... Re-evaluate in am & prn CONDITION: CRITICAL PROGNOSIS: GUARDED CODE STATUS: FULL CODE The high probability of a clinically significant, sudden or life-threatening deterioration of the [respiratory, cardiovascular & neurologic] system(s) required my full and direct attention, intervention and personal management. The aggregate critical care time was [34] minutes without overlap. Time includes spent on; [x] Data Review and interpretation [x] Patient assessment and monitoring of vital signs [x] Documentation [x] Medication orders and management Subjective Date of service: 05/05/20 Principal diagnosis: Ac on Ch Hypercapnic & hypoxemic Resp Failure; Severe Sepsis; Jamar PNA; ALS Interval history: Patient is seen today for: Acute on Chronic Hypercapnic & hypoxemic Respiratory Failure; Severe Sepsis with Shock; Bilateral Pneumonia (Possible aspiration); History of ALS on Trilogy; PUI-COVID; Acute toxic metabolic encephalopathy Seen and examined at bedside; 24hour events reviewed; nursing and respiratory care staff consulted; no adverse overnight events reported to me; resting in bed; remains on MVS; still awaiting placement; still failing SBT's Objective Vital Signs - 12hr 05/05/20 05/05/20 05/05/20 02:00 03:00 03:22 Temperature 98.4 F Pulse Rate 99 H 108 H Pulse Rate [ From Monitor] Respiratory 18 20 Rate Blood Pressure 110/72 118/70 O2 Sat by Pulse 96 Oximetry O2 Sat by Pulse Oximetry [ Assessment] 05/05/20 05/05/20 05/05/20 03:35 04:00 04:14 Temperature Pulse Rate 108 H 114 H Pulse Rate [ 108 H From Monitor] Respiratory 16 Rate Blood Pressure 113/74 113/74 O2 Sat by Pulse 96 97 Oximetry O2 Sat by Pulse 96 Oximetry [ Assessment] 05/05/20 05/05/20 05/05/20 04:28 05:00 06:00 Temperature Pulse Rate 120 H 108 H Pulse Rate [ From Monitor] Respiratory 20 13 13 Rate Blood Pressure 117/79 123/87 O2 Sat by Pulse 95 Oximetry O2 Sat by Pulse Oximetry [ Assessment] 05/05/20 05/05/20 05/05/20 07:00 08:00 08:59 Temperature Pulse Rate 118 H 114 H Pulse Rate [ From Monitor] Respiratory 14 14 Rate Blood Pressure 122/80 126/80 O2 Sat by Pulse 96 95 95 Oximetry O2 Sat by Pulse 95 Oximetry [ Assessment] 05/05/20 05/05/20 05/05/20 10:52 11:24 11:30 Temperature Pulse Rate 119 H 108 H Pulse Rate [ From Monitor] Respiratory 19 21 Rate Blood Pressure 120/85 109/70 O2 Sat by Pulse 98 Oximetry O2 Sat by Pulse Oximetry [ Assessment] Constitutional: no acute distress, other (thin middle aged male with normal respiratory effort at rest on MVS) Eyes: non-icteric ENT: oropharynx moist, other (S/P Tracheostomy) Neck: supple, no lymphadenopathy, no JVD Effort: mildly labored Ascultation: Bilateral: rhonchi Percussion: Bilateral: not dull Cardiovascular: regular rate and rhythm, other (S1,S2, no murmurs) Gastrointestinal: normoactive bowel sounds, soft, non-tender, non-distended, other (+ distended but non tender suprapubis) Integumentary: normal, decubitus ulcer (sacral / gluteal) Extremities: no cyanosis, no edema, pulses normal, other (atrophic looking limbs) Neurologic: pupils equal and round, other (motor strength in extremities 1-2/5, awake, alert, mouths words to make needs known) Psychiatric: mood appropriate, affect normal CBC and BMP: 05/03/20 14:06 05/03/20 14:06 ABG, PT/INR, D-dimer: ABG ABG pH 7.371 (7.320-7.450) 03/08/20 12:34 POC ABG pCO2 63.1 mmHg (32.0-48.0) H 03/08/20 12:34 ABG pCO2 60.1 mm Hg 03/06/20 04:34 POC ABG pO2 90.5 mmHg (83-108) 03/08/20 12:34 ABG pO2 88.6 mm Hg (80.0-90.0) 03/06/20 04:34 POC ABG HCO3 35.7 03/08/20 12:34 ABG O2 Saturation 97.0 % (95.0-99.0) 03/06/20 04:34 PT/INR, D-dimer PT 15.6 Sec. (12.2-14.9) H 02/24/20 09:19 INR 1.21 (0.87-1.13) H 02/24/20 09:19 D-Dimer 1311.96 ng/mlDDU (0-234) H 02/24/20 09:19 Abnormal lab findings: Abnormal Labs 02/24/20 02/24/20 02/24/20 09:19 09:19 09:19 WBC 20.2 H RBC 5.05 H Hgb Hct MCV MCH RDW 15.3 H Plt Count Lymph % (Auto) [place] % (Auto) Lymph # (Auto) [place] # (Auto) Seg Neutrophils % Seg Neuts % (Manual) 86.0 H Lymphocytes % (Manual) 1.0 L Monocytes % (Manual) Basophils % (Manual) Seg Neutrophils # Seg Neutrophils # Man 17.4 H Lymphocytes # (Manual) 0.2 L Monocytes # (Manual) Eosinophils # (Manual) Basophils # (Manual) PT 15.6 H INR 1.21 H D-Dimer 1311.96 H ABG pH POC ABG pCO2 POC ABG pO2 ABG pO2 ABG HCO3 ABG O2 Saturation ABG Base Excess ABG Hemoglobin ABG Oxyhemoglobin ABG Potassium ABG Glucose Oxyhemoglobin Carboxyhemoglobin Sodium 135 L Potassium 3.2 L Chloride 92.2 L Carbon Dioxide BUN 6 L Creatinine < 0.2 L Glucose 124 H POC Glucose Calcium Ferritin Total Bilirubin 2.30 H Alkaline Phosphatase 132 H Lactate Dehydrogenase Total Creatine Kinase CK-MB (CK-2) Rel Index Troponin T 0.080 H C-Reactive Protein Total Protein Albumin 3.6 L Prealbumin LDL Cholesterol Direct 41 L HDL Cholesterol Arterial Blood Glucose Arterial Blood Ionized Calcium Urine WBC (Auto) 02/24/20 02/24/20 02/24/20 09:19 09:58 10:01 WBC RBC Hgb Hct MCV MCH RDW Plt Count Lymph % (Auto) [place] % (Auto) Lymph # (Auto) [place] # (Auto) Seg Neutrophils % Seg Neuts % (Manual) Lymphocytes % (Manual) Monocytes % (Manual) Basophils % (Manual) Seg Neutrophils # Seg Neutrophils # Man Lymphocytes # (Manual) Monocytes # (Manual) Eosinophils # (Manual) Basophils # (Manual) PT INR D-Dimer ABG pH 7.176 L* POC ABG pCO2 POC ABG pO2 ABG pO2 91.2 H ABG HCO3 ABG O2 Saturation ABG Base Excess -4.6 L ABG Hemoglobin ABG Oxyhemoglobin ABG Potassium ABG Glucose Oxyhemoglobin 92.6 L Carboxyhemoglobin Sodium Potassium Chloride Carbon Dioxide BUN Creatinine Glucose POC Glucose Calcium Ferritin 1715.0 H Total Bilirubin Alkaline Phosphatase Lactate Dehydrogenase 303 H Total Creatine Kinase CK-MB (CK-2) Rel Index Troponin T C-Reactive Protein 26.10 H Total Protein Albumin Prealbumin LDL Cholesterol Direct HDL Cholesterol Arterial Blood Glucose Arterial Blood Ionized Calcium Urine WBC (Auto) 02/24/20 02/24/20 02/24/20 11:52 13:45 19:35 WBC RBC Hgb Hct MCV MCH RDW Plt Count Lymph % (Auto) [place] % (Auto) Lymph # (Auto) [place] # (Auto) Seg Neutrophils % Seg Neuts % (Manual) Lymphocytes % (Manual) Monocytes % (Manual) Basophils % (Manual) Seg Neutrophils # Seg Neutrophils # Man Lymphocytes # (Manual) Monocytes # (Manual) Eosinophils # (Manual) Basophils # (Manual) PT INR D-Dimer ABG pH 7.051 L* 7.300 L POC ABG pCO2 POC ABG pO2 ABG pO2 94.7 H 75.1 L ABG HCO3 18.0 L ABG O2 Saturation 93.5 L ABG Base Excess -6.8 L -7.8 L ABG Hemoglobin 13.2 L 11.9 L ABG Oxyhemoglobin ABG Potassium ABG Glucose Oxyhemoglobin 91.0 L 92.7 L Carboxyhemoglobin Sodium Potassium Chloride Carbon Dioxide BUN Creatinine Glucose POC Glucose Calcium Ferritin Total Bilirubin Alkaline Phosphatase Lactate Dehydrogenase Total Creatine Kinase CK-MB (CK-2) Rel Index Troponin T 0.034 H D C-Reactive Protein Total Protein Albumin Prealbumin LDL Cholesterol Direct HDL Cholesterol Arterial Blood Glucose Arterial Blood Ionized Calcium Urine WBC (Auto) 02/25/20 02/25/20 02/25/20 04:00 04:00 12:26 WBC 22.9 H RBC Hgb Hct MCV 83 L MCH 27 L RDW Plt Count 468 H Lymph % (Auto) [place] % (Auto) Lymph # (Auto) [place] # (Auto) Seg Neutrophils % Seg Neuts % (Manual) 89.0 H Lymphocytes % (Manual) 7.0 L Monocytes % (Manual) Basophils % (Manual) Seg Neutrophils # Seg Neutrophils # Man 20.4 H Lymphocytes # (Manual) Monocytes # (Manual) Eosinophils # (Manual) Basophils # (Manual) PT INR D-Dimer ABG pH POC ABG pCO2 POC ABG pO2 ABG pO2 ABG HCO3 ABG O2 Saturation ABG Base Excess ABG Hemoglobin ABG Oxyhemoglobin ABG Potassium 2.6 L ABG Glucose 142 H Oxyhemoglobin Carboxyhemoglobin Sodium Potassium 3.2 L Chloride Carbon Dioxide 18 L BUN Creatinine 0.2 L Glucose 114 H POC Glucose Calcium Ferritin Total Bilirubin Alkaline Phosphatase Lactate Dehydrogenase Total Creatine Kinase CK-MB (CK-2) Rel Index Troponin T C-Reactive Protein Total Protein Albumin 3.5 L Prealbumin LDL Cholesterol Direct HDL Cholesterol Arterial Blood Glucose 142 H Arterial Blood Ionized Calcium Urine WBC (Auto) 02/26/20 02/26/20 02/26/20 15:58 17:00 23:43 WBC RBC Hgb Hct MCV MCH RDW Plt Count Lymph % (Auto) [place] % (Auto) Lymph # (Auto) [place] # (Auto) Seg Neutrophils % Seg Neuts % (Manual) Lymphocytes % (Manual) Monocytes % (Manual) Basophils % (Manual) Seg Neutrophils # Seg Neutrophils # Man Lymphocytes # (Manual) Monocytes # (Manual) Eosinophils # (Manual) Basophils # (Manual) PT INR D-Dimer ABG pH 7.502 H POC ABG pCO2 POC ABG pO2 213.6 H ABG pO2 ABG HCO3 ABG O2 Saturation ABG Base Excess ABG Hemoglobin ABG Oxyhemoglobin 99.2 H ABG Potassium 2.9 L ABG Glucose 160 H Oxyhemoglobin Carboxyhemoglobin 0.4 L Sodium Potassium Chloride Carbon Dioxide BUN Creatinine Glucose POC Glucose 189 H 120 H Calcium Ferritin Total Bilirubin Alkaline Phosphatase Lactate Dehydrogenase Total Creatine Kinase CK-MB (CK-2) Rel Index Troponin T C-Reactive Protein Total Protein Albumin Prealbumin LDL Cholesterol Direct HDL Cholesterol Arterial Blood Glucose 160 H Arterial Blood Ionized Calcium 4.5 L Urine WBC (Auto) 02/27/20 02/27/20 02/27/20 05:00 07:04 17:45 WBC RBC Hgb Hct MCV MCH RDW Plt Count Lymph % (Auto) [place] % (Auto) Lymph # (Auto) [place] # (Auto) Seg Neutrophils % Seg Neuts % (Manual) Lymphocytes % (Manual) Monocytes % (Manual) Basophils % (Manual) Seg Neutrophils # Seg Neutrophils # Man Lymphocytes # (Manual) Monocytes # (Manual) Eosinophils # (Manual) Basophils # (Manual) PT INR D-Dimer ABG pH 7.524 H POC ABG pCO2 POC ABG pO2 ABG pO2 ABG HCO3 ABG O2 Saturation ABG Base Excess ABG Hemoglobin ABG Oxyhemoglobin ABG Potassium 3.0 L ABG Glucose 143 H Oxyhemoglobin Carboxyhemoglobin Sodium Potassium Chloride Carbon Dioxide BUN Creatinine Glucose POC Glucose 154 H 175 H Calcium Ferritin Total Bilirubin Alkaline Phosphatase Lactate Dehydrogenase Total Creatine Kinase CK-MB (CK-2) Rel Index Troponin T C-Reactive Protein Total Protein Albumin Prealbumin LDL Cholesterol Direct HDL Cholesterol Arterial Blood Glucose 143 H Arterial Blood Ionized Calcium Urine WBC (Auto) 1102/28/20 02/28/20 Unknown 00:21 04:15 WBC 18.7 H RBC Hgb Hct MCV MCH RDW Plt Count Lymph % (Auto) 8.7 L [place] % (Auto) Lymph # (Auto) [place] # (Auto) 1.2 H Seg Neutrophils % 84.6 H Seg Neuts % (Manual) Lymphocytes % (Manual) Monocytes % (Manual) Basophils % (Manual) Seg Neutrophils # 15.9 H Seg Neutrophils # Man Lymphocytes # (Manual) Monocytes # (Manual) Eosinophils # (Manual) Basophils # (Manual) PT INR D-Dimer ABG pH POC ABG pCO2 POC ABG pO2 ABG pO2 ABG HCO3 ABG O2 Saturation ABG Base Excess ABG Hemoglobin ABG Oxyhemoglobin ABG Potassium ABG Glucose Oxyhemoglobin Carboxyhemoglobin Sodium Potassium 2.9 L* Chloride Carbon Dioxide 33 H D BUN Creatinine < 0.2 L Glucose 157 H POC Glucose 134 H Calcium Ferritin Total Bilirubin Alkaline Phosphatase Lactate Dehydrogenase Total Creatine Kinase CK-MB (CK-2) Rel Index Troponin T C-Reactive Protein Total Protein Albumin Prealbumin LDL Cholesterol Direct HDL Cholesterol Arterial Blood Glucose Arterial Blood Ionized Calcium Urine WBC (Auto) 02/28/20 02/28/20 02/28/20 04:15 05:16 05:39 WBC RBC Hgb Hct MCV MCH RDW Plt Count Lymph % (Auto) [place] % (Auto) Lymph # (Auto) [place] # (Auto) Seg Neutrophils % Seg Neuts % (Manual) Lymphocytes % (Manual) Monocytes % (Manual) Basophils % (Manual) Seg Neutrophils # Seg Neutrophils # Man Lymphocytes # (Manual) Monocytes # (Manual) Eosinophils # (Manual) Basophils # (Manual) PT INR D-Dimer ABG pH POC ABG pCO2 POC ABG pO2 ABG pO2 142.9 H ABG HCO3 34.1 H ABG O2 Saturation ABG Base Excess 8.3 H ABG Hemoglobin ABG Oxyhemoglobin ABG Potassium ABG Glucose Oxyhemoglobin Carboxyhemoglobin Sodium 151 H Potassium Chloride Carbon Dioxide 32 H BUN Creatinine 0.2 L Glucose 167 H POC Glucose 138 H Calcium Ferritin Total Bilirubin Alkaline Phosphatase Lactate Dehydrogenase Total Creatine Kinase CK-MB (CK-2) Rel Index Troponin T C-Reactive Protein Total Protein Albumin Prealbumin LDL Cholesterol Direct HDL Cholesterol Arterial Blood Glucose Arterial Blood Ionized Calcium Urine WBC (Auto) 02/28/20 02/28/20 02/28/20 11:05 11:33 12:54 WBC RBC Hgb Hct MCV MCH RDW Plt Count Lymph % (Auto) [place] % (Auto) Lymph # (Auto) [place] # (Auto) Seg Neutrophils % Seg Neuts % (Manual) Lymphocytes % (Manual) Monocytes % (Manual) Basophils % (Manual) Seg Neutrophils # Seg Neutrophils # Man Lymphocytes # (Manual) Monocytes # (Manual) Eosinophils # (Manual) Basophils # (Manual) PT INR D-Dimer ABG pH POC ABG pCO2 POC ABG pO2 ABG pO2 ABG HCO3 ABG O2 Saturation ABG Base Excess ABG Hemoglobin ABG Oxyhemoglobin ABG Potassium ABG Glucose Oxyhemoglobin Carboxyhemoglobin Sodium Potassium Chloride Carbon Dioxide BUN Creatinine Glucose POC Glucose 160 H Calcium Ferritin Total Bilirubin Alkaline Phosphatase Lactate Dehydrogenase Total Creatine Kinase CK-MB (CK-2) Rel Index Troponin T C-Reactive Protein 4.70 H Total Protein Albumin Prealbumin 0.090 L LDL Cholesterol Direct HDL Cholesterol Arterial Blood Glucose Arterial Blood Ionized Calcium Urine WBC (Auto) 02/28/20 02/29/20 02/29/20 17:34 00:44 04:05 WBC 19.6 H RBC Hgb Hct MCV MCH 27 L RDW 15.4 H Plt Count Lymph % (Auto) [place] % (Auto) Lymph # (Auto) [place] # (Auto) Seg Neutrophils % Seg Neuts % (Manual) 86.0 H Lymphocytes % (Manual) 7.0 L Monocytes % (Manual) Basophils % (Manual) Seg Neutrophils # Seg Neutrophils # Man 16.9 H Lymphocytes # (Manual) Monocytes # (Manual) 1.2 H Eosinophils # (Manual) Basophils # (Manual) PT INR D-Dimer ABG pH POC ABG pCO2 POC ABG pO2 ABG pO2 ABG HCO3 ABG O2 Saturation ABG Base Excess ABG Hemoglobin ABG Oxyhemoglobin ABG Potassium ABG Glucose Oxyhemoglobin Carboxyhemoglobin Sodium Potassium Chloride Carbon Dioxide BUN Creatinine Glucose POC Glucose 136 H 156 H Calcium Ferritin Total Bilirubin Alkaline Phosphatase Lactate Dehydrogenase Total Creatine Kinase CK-MB (CK-2) Rel Index Troponin T C-Reactive Protein Total Protein Albumin Prealbumin LDL Cholesterol Direct HDL Cholesterol Arterial Blood Glucose Arterial Blood Ionized Calcium Urine WBC (Auto) 02/29/20 02/29/20 02/29/20 04:05 05:14 05:33 WBC RBC Hgb Hct MCV MCH RDW Plt Count Lymph % (Auto) [place] % (Auto) Lymph # (Auto) [place] # (Auto) Seg Neutrophils % Seg Neuts % (Manual) Lymphocytes % (Manual) Monocytes % (Manual) Basophils % (Manual) Seg Neutrophils # Seg Neutrophils # Man Lymphocytes # (Manual) Monocytes # (Manual) Eosinophils # (Manual) Basophils # (Manual) PT INR D-Dimer ABG pH POC ABG pCO2 54.3 H POC ABG pO2 124.8 H ABG pO2 ABG HCO3 ABG O2 Saturation ABG Base Excess ABG Hemoglobin ABG Oxyhemoglobin ABG Potassium ABG Glucose 185 H Oxyhemoglobin Carboxyhemoglobin Sodium 148 H Potassium Chloride Carbon Dioxide 33 H BUN Creatinine < 0.2 L Glucose 173 H POC Glucose 152 H Calcium Ferritin Total Bilirubin Alkaline Phosphatase Lactate Dehydrogenase Total Creatine Kinase CK-MB (CK-2) Rel Index Troponin T C-Reactive Protein Total Protein Albumin Prealbumin LDL Cholesterol Direct HDL Cholesterol Arterial Blood Glucose 185 H Arterial Blood Ionized Calcium Urine WBC (Auto) 03/01/20 03/01/20 03/01/20 00:00 03:45 04:33 WBC 23.1 H RBC Hgb Hct MCV MCH 27 L RDW 15.3 H Plt Count Lymph % (Auto) [place] % (Auto) Lymph # (Auto) [place] # (Auto) Seg Neutrophils % Seg Neuts % (Manual) 92.0 H Lymphocytes % (Manual) 6.0 L Monocytes % (Manual) Basophils % (Manual) Seg Neutrophils # Seg Neutrophils # Man 21.3 H Lymphocytes # (Manual) Monocytes # (Manual) Eosinophils # (Manual) 0.5 H Basophils # (Manual) PT INR D-Dimer ABG pH 7.492 H POC ABG pCO2 POC ABG pO2 ABG pO2 157.1 H ABG HCO3 32.3 H ABG O2 Saturation ABG Base Excess 8.1 H ABG Hemoglobin 13.2 L ABG Oxyhemoglobin ABG Potassium ABG Glucose Oxyhemoglobin Carboxyhemoglobin Sodium Potassium Chloride Carbon Dioxide BUN Creatinine Glucose POC Glucose 109 H Calcium Ferritin Total Bilirubin Alkaline Phosphatase Lactate Dehydrogenase Total Creatine Kinase CK-MB (CK-2) Rel Index Troponin T C-Reactive Protein Total Protein Albumin Prealbumin LDL Cholesterol Direct HDL Cholesterol Arterial Blood Glucose Arterial Blood Ionized Calcium Urine WBC (Auto) 03/01/20 03/01/20 03/01/20 04:33 05:29 12:32 WBC RBC Hgb Hct MCV MCH RDW Plt Count Lymph % (Auto) [place] % (Auto) Lymph # (Auto) [place] # (Auto) Seg Neutrophils % Seg Neuts % (Manual) Lymphocytes % (Manual) Monocytes % (Manual) Basophils % (Manual) Seg Neutrophils # Seg Neutrophils # Man Lymphocytes # (Manual) Monocytes # (Manual) Eosinophils # (Manual) Basophils # (Manual) PT INR D-Dimer ABG pH POC ABG pCO2 POC ABG pO2 ABG pO2 ABG HCO3 ABG O2 Saturation ABG Base Excess ABG Hemoglobin ABG Oxyhemoglobin ABG Potassium ABG Glucose Oxyhemoglobin Carboxyhemoglobin Sodium 146 H Potassium Chloride Carbon Dioxide 32 H BUN Creatinine < 0.2 L Glucose 120 H POC Glucose 120 H 128 H Calcium Ferritin Total Bilirubin Alkaline Phosphatase Lactate Dehydrogenase Total Creatine Kinase CK-MB (CK-2) Rel Index Troponin T C-Reactive Protein Total Protein Albumin Prealbumin LDL Cholesterol Direct HDL Cholesterol Arterial Blood Glucose Arterial Blood Ionized Calcium Urine WBC (Auto) 03/01/20 03/01/20 03/02/20 17:38 23:46 06:13 WBC RBC Hgb Hct MCV MCH RDW Plt Count Lymph % (Auto) [place] % (Auto) Lymph # (Auto) [place] # (Auto) Seg Neutrophils % Seg Neuts % (Manual) Lymphocytes % (Manual) Monocytes % (Manual) Basophils % (Manual) Seg Neutrophils # Seg Neutrophils # Man Lymphocytes # (Manual) Monocytes # (Manual) Eosinophils # (Manual) Basophils # (Manual) PT INR D-Dimer ABG pH POC ABG pCO2 POC ABG pO2 ABG pO2 ABG HCO3 ABG O2 Saturation ABG Base Excess ABG Hemoglobin ABG Oxyhemoglobin ABG Potassium ABG Glucose Oxyhemoglobin Carboxyhemoglobin Sodium Potassium Chloride Carbon Dioxide BUN Creatinine Glucose POC Glucose 114 H 121 H 120 H Calcium Ferritin Total Bilirubin Alkaline Phosphatase Lactate Dehydrogenase Total Creatine Kinase CK-MB (CK-2) Rel Index Troponin T C-Reactive Protein Total Protein Albumin Prealbumin LDL Cholesterol Direct HDL Cholesterol Arterial Blood Glucose Arterial Blood Ionized Calcium Urine WBC (Auto) 03/02/20 03/02/20 03/03/20 09:47 09:47 10:21 WBC 23.6 H RBC Hgb Hct MCV MCH RDW 15.3 H Plt Count 494 H Lymph % (Auto) [place] % (Auto) Lymph # (Auto) [place] # (Auto) Seg Neutrophils % Seg Neuts % (Manual) 85.0 H Lymphocytes % (Manual) 6.0 L Monocytes % (Manual) Basophils % (Manual) Seg Neutrophils # Seg Neutrophils # Man 20.1 H Lymphocytes # (Manual) Monocytes # (Manual) 1.7 H Eosinophils # (Manual) Basophils # (Manual) PT INR D-Dimer ABG pH POC ABG pCO2 POC ABG pO2 ABG pO2 ABG HCO3 ABG O2 Saturation ABG Base Excess ABG Hemoglobin ABG Oxyhemoglobin ABG Potassium 3.3 L ABG Glucose 158 H Oxyhemoglobin Carboxyhemoglobin Sodium Potassium Chloride Carbon Dioxide BUN Creatinine < 0.2 L Glucose 177 H POC Glucose Calcium Ferritin Total Bilirubin Alkaline Phosphatase Lactate Dehydrogenase Total Creatine Kinase CK-MB (CK-2) Rel Index Troponin T C-Reactive Protein Total Protein Albumin Prealbumin LDL Cholesterol Direct HDL Cholesterol Arterial Blood Glucose 158 H Arterial Blood Ionized Calcium Urine WBC (Auto) 03/03/20 03/04/20 03/04/20 21:30 00:00 12:23 WBC RBC Hgb Hct MCV MCH RDW Plt Count Lymph % (Auto) [place] % (Auto) Lymph # (Auto) [place] # (Auto) Seg Neutrophils % Seg Neuts % (Manual) Lymphocytes % (Manual) Monocytes % (Manual) Basophils % (Manual) Seg Neutrophils # Seg Neutrophils # Man Lymphocytes # (Manual) Monocytes # (Manual) Eosinophils # (Manual) Basophils # (Manual) PT INR D-Dimer ABG pH 7.328 L POC ABG pCO2 POC ABG pO2 ABG pO2 68.4 L ABG HCO3 35.0 H ABG O2 Saturation 93.9 L ABG Base Excess 6.8 H ABG Hemoglobin 12.7 L ABG Oxyhemoglobin ABG Potassium ABG Glucose Oxyhemoglobin 91.9 L Carboxyhemoglobin Sodium Potassium Chloride Carbon Dioxide BUN Creatinine Glucose POC Glucose 187 H 163 H Calcium Ferritin Total Bilirubin Alkaline Phosphatase Lactate Dehydrogenase Total Creatine Kinase CK-MB (CK-2) Rel Index Troponin T C-Reactive Protein Total Protein Albumin Prealbumin LDL Cholesterol Direct HDL Cholesterol Arterial Blood Glucose Arterial Blood Ionized Calcium Urine WBC (Auto) 03/04/20 03/04/20 03/05/20 18:15 21:30 06:02 WBC RBC Hgb Hct MCV MCH RDW Plt Count Lymph % (Auto) [place] % (Auto) Lymph # (Auto) [place] # (Auto) Seg Neutrophils % Seg Neuts % (Manual) Lymphocytes % (Manual) Monocytes % (Manual) Basophils % (Manual) Seg Neutrophils # Seg Neutrophils # Man Lymphocytes # (Manual) Monocytes # (Manual) Eosinophils # (Manual) Basophils # (Manual) PT INR D-Dimer ABG pH 7.297 L POC ABG pCO2 POC ABG pO2 ABG pO2 ABG HCO3 41.0 H ABG O2 Saturation ABG Base Excess 11.0 H ABG Hemoglobin 13.1 L ABG Oxyhemoglobin ABG Potassium ABG Glucose Oxyhemoglobin 94.5 L Carboxyhemoglobin Sodium Potassium Chloride Carbon Dioxide BUN Creatinine Glucose POC Glucose 192 H 127 H Calcium Ferritin Total Bilirubin Alkaline Phosphatase Lactate Dehydrogenase Total Creatine Kinase CK-MB (CK-2) Rel Index Troponin T C-Reactive Protein Total Protein Albumin Prealbumin LDL Cholesterol Direct HDL Cholesterol Arterial Blood Glucose Arterial Blood Ionized Calcium Urine WBC (Auto) 03/05/20 03/05/20 03/06/20 12:09 16:42 00:24 WBC RBC Hgb Hct MCV MCH RDW Plt Count Lymph % (Auto) [place] % (Auto) Lymph # (Auto) [place] # (Auto) Seg Neutrophils % Seg Neuts % (Manual) Lymphocytes % (Manual) Monocytes % (Manual) Basophils % (Manual) Seg Neutrophils # Seg Neutrophils # Man Lymphocytes # (Manual) Monocytes # (Manual) Eosinophils # (Manual) Basophils # (Manual) PT INR D-Dimer ABG pH POC ABG pCO2 POC ABG pO2 ABG pO2 ABG HCO3 ABG O2 Saturation ABG Base Excess ABG Hemoglobin ABG Oxyhemoglobin ABG Potassium ABG Glucose Oxyhemoglobin Carboxyhemoglobin Sodium Potassium Chloride Carbon Dioxide BUN Creatinine Glucose POC Glucose 147 H 114 H 134 H Calcium Ferritin Total Bilirubin Alkaline Phosphatase Lactate Dehydrogenase Total Creatine Kinase CK-MB (CK-2) Rel Index Troponin T C-Reactive Protein Total Protein Albumin Prealbumin LDL Cholesterol Direct HDL Cholesterol Arterial Blood Glucose Arterial Blood Ionized Calcium Urine WBC (Auto) 03/06/20 03/06/20 03/06/20 04:34 05:53 06:08 WBC 25.4 H RBC Hgb 10.5 L Hct 32.7 L MCV MCH 27 L RDW 15.3 H Plt Count 634 H Lymph % (Auto) [place] % (Auto) Lymph # (Auto) [place] # (Auto) Seg Neutrophils % Seg Neuts % (Manual) 88.0 H Lymphocytes % (Manual) 2.0 L Monocytes % (Manual) 8.0 H Basophils % (Manual) Seg Neutrophils # Seg Neutrophils # Man 22.4 H Lymphocytes # (Manual) 0.5 L Monocytes # (Manual) 2.0 H Eosinophils # (Manual) Basophils # (Manual) PT INR D-Dimer ABG pH POC ABG pCO2 POC ABG pO2 ABG pO2 ABG HCO3 37.9 H ABG O2 Saturation ABG Base Excess 11.4 H ABG Hemoglobin 10.6 L ABG Oxyhemoglobin ABG Potassium ABG Glucose Oxyhemoglobin 94.7 L Carboxyhemoglobin Sodium Potassium Chloride Carbon Dioxide BUN Creatinine Glucose POC Glucose 135 H Calcium Ferritin Total Bilirubin Alkaline Phosphatase Lactate Dehydrogenase Total Creatine Kinase CK-MB (CK-2) Rel Index Troponin T C-Reactive Protein Total Protein Albumin Prealbumin LDL Cholesterol Direct HDL Cholesterol Arterial Blood Glucose Arterial Blood Ionized Calcium Urine WBC (Auto) 03/06/20 03/06/20 03/06/20 06:08 12:19 19:10 WBC RBC Hgb Hct MCV MCH RDW Plt Count Lymph % (Auto) [place] % (Auto) Lymph # (Auto) [place] # (Auto) Seg Neutrophils % Seg Neuts % (Manual) Lymphocytes % (Manual) Monocytes % (Manual) Basophils % (Manual) Seg Neutrophils # Seg Neutrophils # Man Lymphocytes # (Manual) Monocytes # (Manual) Eosinophils # (Manual) Basophils # (Manual) PT INR D-Dimer ABG pH POC ABG pCO2 POC ABG pO2 ABG pO2 ABG HCO3 ABG O2 Saturation ABG Base Excess ABG Hemoglobin ABG Oxyhemoglobin ABG Potassium ABG Glucose Oxyhemoglobin Carboxyhemoglobin Sodium 150 H D Potassium Chloride Carbon Dioxide 39 H D BUN 23 H Creatinine < 0.2 L Glucose 144 H POC Glucose 169 H 152 H Calcium Ferritin Total Bilirubin Alkaline Phosphatase Lactate Dehydrogenase Total Creatine Kinase CK-MB (CK-2) Rel Index Troponin T C-Reactive Protein Total Protein Albumin 3.3 L Prealbumin LDL Cholesterol Direct HDL Cholesterol Arterial Blood Glucose Arterial Blood Ionized Calcium Urine WBC (Auto) 03/06/20 03/07/20 03/07/20 23:58 04:25 04:25 WBC 22.1 H RBC Hgb 10.9 L Hct 32.9 L MCV MCH RDW 15.5 H Plt Count 739 H Lymph % (Auto) 7.8 L [place] % (Auto) Lymph # (Auto) [place] # (Auto) 1.3 H Seg Neutrophils % 85.5 H Seg Neuts % (Manual) Lymphocytes % (Manual) Monocytes % (Manual) Basophils % (Manual) Seg Neutrophils # 18.9 H Seg Neutrophils # Man Lymphocytes # (Manual) Monocytes # (Manual) Eosinophils # (Manual) Basophils # (Manual) PT INR D-Dimer ABG pH POC ABG pCO2 POC ABG pO2 ABG pO2 ABG HCO3 ABG O2 Saturation ABG Base Excess ABG Hemoglobin ABG Oxyhemoglobin ABG Potassium ABG Glucose Oxyhemoglobin Carboxyhemoglobin Sodium 146 H Potassium Chloride Carbon Dioxide 37 H BUN Creatinine < 0.2 L Glucose 118 H POC Glucose 111 H Calcium Ferritin Total Bilirubin Alkaline Phosphatase Lactate Dehydrogenase Total Creatine Kinase CK-MB (CK-2) Rel Index Troponin T C-Reactive Protein Total Protein Albumin 3.7 L Prealbumin LDL Cholesterol Direct HDL Cholesterol Arterial Blood Glucose Arterial Blood Ionized Calcium Urine WBC (Auto) 03/07/20 03/07/20 03/07/20 05:20 17:45 23:32 WBC RBC Hgb Hct MCV MCH RDW Plt Count Lymph % (Auto) [place] % (Auto) Lymph # (Auto) [place] # (Auto) Seg Neutrophils % Seg Neuts % (Manual) Lymphocytes % (Manual) Monocytes % (Manual) Basophils % (Manual) Seg Neutrophils # Seg Neutrophils # Man Lymphocytes # (Manual) Monocytes # (Manual) Eosinophils # (Manual) Basophils # (Manual) PT INR D-Dimer ABG pH POC ABG pCO2 POC ABG pO2 ABG pO2 ABG HCO3 ABG O2 Saturation ABG Base Excess ABG Hemoglobin ABG Oxyhemoglobin ABG Potassium ABG Glucose Oxyhemoglobin Carboxyhemoglobin Sodium Potassium Chloride Carbon Dioxide BUN Creatinine Glucose POC Glucose 113 H 124 H 210 H Calcium Ferritin Total Bilirubin Alkaline Phosphatase Lactate Dehydrogenase Total Creatine Kinase CK-MB (CK-2) Rel Index Troponin T C-Reactive Protein Total Protein Albumin Prealbumin LDL Cholesterol Direct HDL Cholesterol Arterial Blood Glucose Arterial Blood Ionized Calcium Urine WBC (Auto) 03/08/20 03/08/20 03/08/20 05:35 06:43 06:43 WBC 28.9 H RBC 3.53 L Hgb 9.7 L Hct 30.3 L MCV MCH RDW 15.6 H Plt Count 578 H Lymph % (Auto) [place] % (Auto) Lymph # (Auto) [place] # (Auto) Seg Neutrophils % Seg Neuts % (Manual) 93.0 H Lymphocytes % (Manual) 4.0 L Monocytes % (Manual) Basophils % (Manual) Seg Neutrophils # Seg Neutrophils # Man 26.9 H Lymphocytes # (Manual) Monocytes # (Manual) Eosinophils # (Manual) Basophils # (Manual) PT INR D-Dimer ABG pH POC ABG pCO2 POC ABG pO2 ABG pO2 ABG HCO3 ABG O2 Saturation ABG Base Excess ABG Hemoglobin ABG Oxyhemoglobin ABG Potassium ABG Glucose Oxyhemoglobin Carboxyhemoglobin Sodium 146 H Potassium Chloride Carbon Dioxide 35 H BUN 34 H Creatinine 0.3 L D Glucose 125 H POC Glucose 147 H Calcium Ferritin Total Bilirubin Alkaline Phosphatase Lactate Dehydrogenase Total Creatine Kinase CK-MB (CK-2) Rel Index Troponin T C-Reactive Protein Total Protein 5.9 L Albumin 3.2 L Prealbumin LDL Cholesterol Direct HDL Cholesterol Arterial Blood Glucose Arterial Blood Ionized Calcium Urine WBC (Auto) 03/08/20 03/08/20 03/08/20 08:57 11:14 12:34 WBC RBC Hgb Hct MCV MCH RDW Plt Count Lymph % (Auto) [place] % (Auto) Lymph # (Auto) [place] # (Auto) Seg Neutrophils % Seg Neuts % (Manual) Lymphocytes % (Manual) Monocytes % (Manual) Basophils % (Manual) Seg Neutrophils # Seg Neutrophils # Man Lymphocytes # (Manual) Monocytes # (Manual) Eosinophils # (Manual) Basophils # (Manual) PT INR D-Dimer ABG pH POC ABG pCO2 63.1 H POC ABG pO2 ABG pO2 ABG HCO3 ABG O2 Saturation ABG Base Excess ABG Hemoglobin 10.9 L ABG Oxyhemoglobin ABG Potassium ABG Glucose 176 H Oxyhemoglobin Carboxyhemoglobin Sodium Potassium Chloride Carbon Dioxide BUN Creatinine Glucose POC Glucose 171 H Calcium Ferritin Total Bilirubin Alkaline Phosphatase Lactate Dehydrogenase Total Creatine Kinase CK-MB (CK-2) Rel Index Troponin T C-Reactive Protein Total Protein Albumin Prealbumin LDL Cholesterol Direct HDL Cholesterol Arterial Blood Glucose 176 H Arterial Blood Ionized Calcium 4.5 L Urine WBC (Auto) 10.0 H 03/08/20 03/08/20 03/09/20 18:02 23:43 05:49 WBC RBC Hgb Hct MCV MCH RDW Plt Count Lymph % (Auto) [place] % (Auto) Lymph # (Auto) [place] # (Auto) Seg Neutrophils % Seg Neuts % (Manual) Lymphocytes % (Manual) Monocytes % (Manual) Basophils % (Manual) Seg Neutrophils # Seg Neutrophils # Man Lymphocytes # (Manual) Monocytes # (Manual) Eosinophils # (Manual) Basophils # (Manual) PT INR D-Dimer ABG pH POC ABG pCO2 POC ABG pO2 ABG pO2 ABG HCO3 ABG O2 Saturation ABG Base Excess ABG Hemoglobin ABG Oxyhemoglobin ABG Potassium ABG Glucose Oxyhemoglobin Carboxyhemoglobin Sodium Potassium Chloride Carbon Dioxide BUN Creatinine Glucose POC Glucose 157 H 134 H 163 H Calcium Ferritin Total Bilirubin Alkaline Phosphatase Lactate Dehydrogenase Total Creatine Kinase CK-MB (CK-2) Rel Index Troponin T C-Reactive Protein Total Protein Albumin Prealbumin LDL Cholesterol Direct HDL Cholesterol Arterial Blood Glucose Arterial Blood Ionized Calcium Urine WBC (Auto) 03/09/20 03/09/20 03/09/20 08:35 08:35 12:11 WBC 23.4 H RBC 3.36 L Hgb 9.3 L Hct 28.8 L MCV MCH RDW 15.9 H Plt Count 521 H Lymph % (Auto) [place] % (Auto) Lymph # (Auto) [place] # (Auto) Seg Neutrophils % Seg Neuts % (Manual) 87.0 H Lymphocytes % (Manual) 4.0 L Monocytes % (Manual) 9.0 H Basophils % (Manual) Seg Neutrophils # Seg Neutrophils # Man 20.4 H Lymphocytes # (Manual) 0.9 L Monocytes # (Manual) 2.1 H Eosinophils # (Manual) Basophils # (Manual) PT INR D-Dimer ABG pH POC ABG pCO2 POC ABG pO2 ABG pO2 ABG HCO3 ABG O2 Saturation ABG Base Excess ABG Hemoglobin ABG Oxyhemoglobin ABG Potassium ABG Glucose Oxyhemoglobin Carboxyhemoglobin Sodium 147 H Potassium Chloride Carbon Dioxide 37 H BUN 63 H Creatinine Glucose 154 H POC Glucose 128 H Calcium Ferritin Total Bilirubin Alkaline Phosphatase Lactate Dehydrogenase Total Creatine Kinase CK-MB (CK-2) Rel Index Troponin T C-Reactive Protein Total Protein Albumin Prealbumin LDL Cholesterol Direct HDL Cholesterol Arterial Blood Glucose Arterial Blood Ionized Calcium Urine WBC (Auto) 03/09/20 03/10/20 03/10/20 17:51 00:25 05:41 WBC RBC Hgb Hct MCV MCH RDW Plt Count Lymph % (Auto) [place] % (Auto) Lymph # (Auto) [place] # (Auto) Seg Neutrophils % Seg Neuts % (Manual) Lymphocytes % (Manual) Monocytes % (Manual) Basophils % (Manual) Seg Neutrophils # Seg Neutrophils # Man Lymphocytes # (Manual) Monocytes # (Manual) Eosinophils # (Manual) Basophils # (Manual) PT INR D-Dimer ABG pH POC ABG pCO2 POC ABG pO2 ABG pO2 ABG HCO3 ABG O2 Saturation ABG Base Excess ABG Hemoglobin ABG Oxyhemoglobin ABG Potassium ABG Glucose Oxyhemoglobin Carboxyhemoglobin Sodium Potassium Chloride Carbon Dioxide BUN Creatinine Glucose POC Glucose 127 H 128 H 153 H Calcium Ferritin Total Bilirubin Alkaline Phosphatase Lactate Dehydrogenase Total Creatine Kinase CK-MB (CK-2) Rel Index Troponin T C-Reactive Protein Total Protein Albumin Prealbumin LDL Cholesterol Direct HDL Cholesterol Arterial Blood Glucose Arterial Blood Ionized Calcium Urine WBC (Auto) 03/10/20 03/10/20 03/10/20 06:14 06:14 12:02 WBC 18.3 H RBC 3.45 L Hgb 9.5 L Hct 29.5 L MCV MCH RDW 16.1 H Plt Count 494 H Lymph % (Auto) [place] % (Auto) Lymph # (Auto) [place] # (Auto) Seg Neutrophils % Seg Neuts % (Manual) 95.0 H Lymphocytes % (Manual) 1.0 L Monocytes % (Manual) Basophils % (Manual) Seg Neutrophils # Seg Neutrophils # Man 17.4 H Lymphocytes # (Manual) 0.2 L Monocytes # (Manual) Eosinophils # (Manual) Basophils # (Manual) PT INR D-Dimer ABG pH POC ABG pCO2 POC ABG pO2 ABG pO2 ABG HCO3 ABG O2 Saturation ABG Base Excess ABG Hemoglobin ABG Oxyhemoglobin ABG Potassium ABG Glucose Oxyhemoglobin Carboxyhemoglobin Sodium 149 H Potassium Chloride Carbon Dioxide 35 H BUN 34 H Creatinine 0.2 L D Glucose 177 H POC Glucose 151 H Calcium Ferritin Total Bilirubin Alkaline Phosphatase Lactate Dehydrogenase Total Creatine Kinase CK-MB (CK-2) Rel Index Troponin T C-Reactive Protein Total Protein Albumin Prealbumin LDL Cholesterol Direct HDL Cholesterol Arterial Blood Glucose Arterial Blood Ionized Calcium Urine WBC (Auto) 03/10/20 03/10/20 03/11/20 17:41 23:53 05:02 WBC RBC Hgb Hct MCV MCH RDW Plt Count Lymph % (Auto) [place] % (Auto) Lymph # (Auto) [place] # (Auto) Seg Neutrophils % Seg Neuts % (Manual) Lymphocytes % (Manual) Monocytes % (Manual) Basophils % (Manual) Seg Neutrophils # Seg Neutrophils # Man Lymphocytes # (Manual) Monocytes # (Manual) Eosinophils # (Manual) Basophils # (Manual) PT INR D-Dimer ABG pH POC ABG pCO2 POC ABG pO2 ABG pO2 ABG HCO3 ABG O2 Saturation ABG Base Excess ABG Hemoglobin ABG Oxyhemoglobin ABG Potassium ABG Glucose Oxyhemoglobin Carboxyhemoglobin Sodium Potassium Chloride Carbon Dioxide BUN Creatinine Glucose POC Glucose 168 H 142 H 146 H Calcium Ferritin Total Bilirubin Alkaline Phosphatase Lactate Dehydrogenase Total Creatine Kinase CK-MB (CK-2) Rel Index Troponin T C-Reactive Protein Total Protein Albumin Prealbumin LDL Cholesterol Direct HDL Cholesterol Arterial Blood Glucose Arterial Blood Ionized Calcium Urine WBC (Auto) 03/11/20 03/11/20 03/11/20 11:30 14:01 14:01 WBC 19.7 H RBC 3.04 L Hgb 8.7 L Hct 25.8 L MCV MCH RDW 15.6 H Plt Count Lymph % (Auto) [place] % (Auto) Lymph # (Auto) [place] # (Auto) Seg Neutrophils % Seg Neuts % (Manual) Lymphocytes % (Manual) Monocytes % (Manual) Basophils % (Manual) Seg Neutrophils # Seg Neutrophils # Man Lymphocytes # (Manual) Monocytes # (Manual) Eosinophils # (Manual) Basophils # (Manual) PT INR D-Dimer ABG pH POC ABG pCO2 POC ABG pO2 ABG pO2 ABG HCO3 ABG O2 Saturation ABG Base Excess ABG Hemoglobin ABG Oxyhemoglobin ABG Potassium ABG Glucose Oxyhemoglobin Carboxyhemoglobin Sodium 151 H Potassium Chloride Carbon Dioxide 37 H BUN Creatinine < 0.2 L Glucose 171 H POC Glucose 248 H Calcium Ferritin Total Bilirubin Alkaline Phosphatase Lactate Dehydrogenase Total Creatine Kinase CK-MB (CK-2) Rel Index Troponin T C-Reactive Protein Total Protein Albumin Prealbumin LDL Cholesterol Direct HDL Cholesterol Arterial Blood Glucose Arterial Blood Ionized Calcium Urine WBC (Auto) 03/11/20 03/11/20 03/12/20 17:09 23:52 04:39 WBC 19.9 H RBC 3.16 L Hgb 8.9 L Hct 27.5 L MCV MCH RDW 15.7 H Plt Count Lymph % (Auto) 6.8 L [place] % (Auto) Lymph # (Auto) [place] # (Auto) 1.2 H Seg Neutrophils % 86.0 H Seg Neuts % (Manual) Lymphocytes % (Manual) Monocytes % (Manual) Basophils % (Manual) Seg Neutrophils # 17.1 H Seg Neutrophils # Man Lymphocytes # (Manual) Monocytes # (Manual) Eosinophils # (Manual) Basophils # (Manual) PT INR D-Dimer ABG pH POC ABG pCO2 POC ABG pO2 ABG pO2 ABG HCO3 ABG O2 Saturation ABG Base Excess ABG Hemoglobin ABG Oxyhemoglobin ABG Potassium ABG Glucose Oxyhemoglobin Carboxyhemoglobin Sodium Potassium Chloride Carbon Dioxide BUN Creatinine Glucose POC Glucose 124 H 131 H Calcium Ferritin Total Bilirubin Alkaline Phosphatase Lactate Dehydrogenase Total Creatine Kinase CK-MB (CK-2) Rel Index Troponin T C-Reactive Protein Total Protein Albumin Prealbumin LDL Cholesterol Direct HDL Cholesterol Arterial Blood Glucose Arterial Blood Ionized Calcium Urine WBC (Auto) 03/12/20 03/12/20 03/12/20 04:39 05:28 11:34 WBC RBC Hgb Hct MCV MCH RDW Plt Count Lymph % (Auto) [place] % (Auto) Lymph # (Auto) [place] # (Auto) Seg Neutrophils % Seg Neuts % (Manual) Lymphocytes % (Manual) Monocytes % (Manual) Basophils % (Manual) Seg Neutrophils # Seg Neutrophils # Man Lymphocytes # (Manual) Monocytes # (Manual) Eosinophils # (Manual) Basophils # (Manual) PT INR D-Dimer ABG pH POC ABG pCO2 POC ABG pO2 ABG pO2 ABG HCO3 ABG O2 Saturation ABG Base Excess ABG Hemoglobin ABG Oxyhemoglobin ABG Potassium ABG Glucose Oxyhemoglobin Carboxyhemoglobin Sodium 147 H Potassium Chloride Carbon Dioxide 40 H BUN Creatinine < 0.2 L Glucose 175 H POC Glucose 167 H 144 H Calcium Ferritin Total Bilirubin Alkaline Phosphatase Lactate Dehydrogenase Total Creatine Kinase CK-MB (CK-2) Rel Index Troponin T C-Reactive Protein Total Protein Albumin Prealbumin LDL Cholesterol Direct HDL Cholesterol Arterial Blood Glucose Arterial Blood Ionized Calcium Urine WBC (Auto) 03/12/20 03/12/20 03/13/20 17:32 23:57 05:57 WBC RBC Hgb Hct MCV MCH RDW Plt Count Lymph % (Auto) [place] % (Auto) Lymph # (Auto) [place] # (Auto) Seg Neutrophils % Seg Neuts % (Manual) Lymphocytes % (Manual) Monocytes % (Manual) Basophils % (Manual) Seg Neutrophils # Seg Neutrophils # Man Lymphocytes # (Manual) Monocytes # (Manual) Eosinophils # (Manual) Basophils # (Manual) PT INR D-Dimer ABG pH POC ABG pCO2 POC ABG pO2 ABG pO2 ABG HCO3 ABG O2 Saturation ABG Base Excess ABG Hemoglobin ABG Oxyhemoglobin ABG Potassium ABG Glucose Oxyhemoglobin Carboxyhemoglobin Sodium Potassium Chloride Carbon Dioxide BUN Creatinine Glucose POC Glucose 141 H 137 H 161 H Calcium Ferritin Total Bilirubin Alkaline Phosphatase Lactate Dehydrogenase Total Creatine Kinase CK-MB (CK-2) Rel Index Troponin T C-Reactive Protein Total Protein Albumin Prealbumin LDL Cholesterol Direct HDL Cholesterol Arterial Blood Glucose Arterial Blood Ionized Calcium Urine WBC (Auto) 03/13/20 03/13/20 03/13/20 12:28 14:14 18:39 WBC RBC Hgb Hct MCV MCH RDW Plt Count Lymph % (Auto) [place] % (Auto) Lymph # (Auto) [place] # (Auto) Seg Neutrophils % Seg Neuts % (Manual) Lymphocytes % (Manual) Monocytes % (Manual) Basophils % (Manual) Seg Neutrophils # Seg Neutrophils # Man Lymphocytes # (Manual) Monocytes # (Manual) Eosinophils # (Manual) Basophils # (Manual) PT INR D-Dimer ABG pH POC ABG pCO2 POC ABG pO2 ABG pO2 ABG HCO3 ABG O2 Saturation ABG Base Excess ABG Hemoglobin ABG Oxyhemoglobin ABG Potassium ABG Glucose Oxyhemoglobin Carboxyhemoglobin Sodium Potassium Chloride Carbon Dioxide 39 H BUN Creatinine < 0.2 L Glucose 129 H POC Glucose 130 H 125 H Calcium Ferritin Total Bilirubin Alkaline Phosphatase Lactate Dehydrogenase Total Creatine Kinase CK-MB (CK-2) Rel Index Troponin T C-Reactive Protein Total Protein Albumin Prealbumin LDL Cholesterol Direct HDL Cholesterol Arterial Blood Glucose Arterial Blood Ionized Calcium Urine WBC (Auto) 03/13/20 03/14/20 03/14/20 23:33 05:24 08:07 WBC 16.8 H RBC 2.81 L Hgb 7.9 L Hct 23.9 L MCV MCH RDW 15.9 H Plt Count Lymph % (Auto) [place] % (Auto) Lymph # (Auto) [place] # (Auto) Seg Neutrophils % Seg Neuts % (Manual) 84.0 H Lymphocytes % (Manual) 10.0 L Monocytes % (Manual) Basophils % (Manual) Seg Neutrophils # Seg Neutrophils # Man 14.1 H Lymphocytes # (Manual) Monocytes # (Manual) Eosinophils # (Manual) Basophils # (Manual) PT INR D-Dimer ABG pH POC ABG pCO2 POC ABG pO2 ABG pO2 ABG HCO3 ABG O2 Saturation ABG Base Excess ABG Hemoglobin ABG Oxyhemoglobin ABG Potassium ABG Glucose Oxyhemoglobin Carboxyhemoglobin Sodium Potassium Chloride Carbon Dioxide BUN Creatinine Glucose POC Glucose 146 H 125 H Calcium Ferritin Total Bilirubin Alkaline Phosphatase Lactate Dehydrogenase Total Creatine Kinase CK-MB (CK-2) Rel Index Troponin T C-Reactive Protein Total Protein Albumin Prealbumin LDL Cholesterol Direct HDL Cholesterol Arterial Blood Glucose Arterial Blood Ionized Calcium Urine WBC (Auto) 03/14/20 03/14/20 03/14/20 08:07 12:21 18:26 WBC RBC Hgb Hct MCV MCH RDW Plt Count Lymph % (Auto) [place] % (Auto) Lymph # (Auto) [place] # (Auto) Seg Neutrophils % Seg Neuts % (Manual) Lymphocytes % (Manual) Monocytes % (Manual) Basophils % (Manual) Seg Neutrophils # Seg Neutrophils # Man Lymphocytes # (Manual) Monocytes # (Manual) Eosinophils # (Manual) Basophils # (Manual) PT INR D-Dimer ABG pH POC ABG pCO2 POC ABG pO2 ABG pO2 ABG HCO3 ABG O2 Saturation ABG Base Excess ABG Hemoglobin ABG Oxyhemoglobin ABG Potassium ABG Glucose Oxyhemoglobin Carboxyhemoglobin Sodium Potassium Chloride 97.0 L Carbon Dioxide 37 H BUN Creatinine < 0.2 L Glucose 129 H POC Glucose 109 H 142 H Calcium 8.3 L Ferritin Total Bilirubin Alkaline Phosphatase Lactate Dehydrogenase Total Creatine Kinase CK-MB (CK-2) Rel Index Troponin T C-Reactive Protein Total Protein Albumin Prealbumin LDL Cholesterol Direct HDL Cholesterol Arterial Blood Glucose Arterial Blood Ionized Calcium Urine WBC (Auto) 03/14/20 03/15/20 03/15/20 23:57 05:46 08:06 WBC 19.7 H RBC 3.29 L Hgb 9.1 L Hct 28.0 L MCV MCH RDW 15.9 H Plt Count Lymph % (Auto) [place] % (Auto) Lymph # (Auto) [place] # (Auto) Seg Neutrophils % Seg Neuts % (Manual) Lymphocytes % (Manual) Monocytes % (Manual) Basophils % (Manual) Seg Neutrophils # Seg Neutrophils # Man Lymphocytes # (Manual) Monocytes # (Manual) Eosinophils # (Manual) Basophils # (Manual) PT INR D-Dimer ABG pH POC ABG pCO2 POC ABG pO2 ABG pO2 ABG HCO3 ABG O2 Saturation ABG Base Excess ABG Hemoglobin ABG Oxyhemoglobin ABG Potassium ABG Glucose Oxyhemoglobin Carboxyhemoglobin Sodium Potassium Chloride Carbon Dioxide BUN Creatinine Glucose POC Glucose 157 H 118 H Calcium Ferritin Total Bilirubin Alkaline Phosphatase Lactate Dehydrogenase Total Creatine Kinase CK-MB (CK-2) Rel Index Troponin T C-Reactive Protein Total Protein Albumin Prealbumin LDL Cholesterol Direct HDL Cholesterol Arterial Blood Glucose Arterial Blood Ionized Calcium Urine WBC (Auto) 03/15/20 03/15/20 03/15/20 08:06 12:44 18:09 WBC RBC Hgb Hct MCV MCH RDW Plt Count Lymph % (Auto) [place] % (Auto) Lymph # (Auto) [place] # (Auto) Seg Neutrophils % Seg Neuts % (Manual) Lymphocytes % (Manual) Monocytes % (Manual) Basophils % (Manual) Seg Neutrophils # Seg Neutrophils # Man Lymphocytes # (Manual) Monocytes # (Manual) Eosinophils # (Manual) Basophils # (Manual) PT INR D-Dimer ABG pH POC ABG pCO2 POC ABG pO2 ABG pO2 ABG HCO3 ABG O2 Saturation ABG Base Excess ABG Hemoglobin ABG Oxyhemoglobin ABG Potassium ABG Glucose Oxyhemoglobin Carboxyhemoglobin Sodium 136 L Potassium Chloride 93.6 L Carbon Dioxide 37 H BUN Creatinine < 0.2 L Glucose 132 H POC Glucose 151 H 164 H Calcium Ferritin Total Bilirubin Alkaline Phosphatase Lactate Dehydrogenase Total Creatine Kinase CK-MB (CK-2) Rel Index Troponin T C-Reactive Protein Total Protein Albumin Prealbumin LDL Cholesterol Direct HDL Cholesterol Arterial Blood Glucose Arterial Blood Ionized Calcium Urine WBC (Auto) 03/15/20 03/16/20 03/16/20 23:26 05:39 11:58 WBC RBC Hgb Hct MCV MCH RDW Plt Count Lymph % (Auto) [place] % (Auto) Lymph # (Auto) [place] # (Auto) Seg Neutrophils % Seg Neuts % (Manual) Lymphocytes % (Manual) Monocytes % (Manual) Basophils % (Manual) Seg Neutrophils # Seg Neutrophils # Man Lymphocytes # (Manual) Monocytes # (Manual) Eosinophils # (Manual) Basophils # (Manual) PT INR D-Dimer ABG pH POC ABG pCO2 POC ABG pO2 ABG pO2 ABG HCO3 ABG O2 Saturation ABG Base Excess ABG Hemoglobin ABG Oxyhemoglobin ABG Potassium ABG Glucose Oxyhemoglobin Carboxyhemoglobin Sodium Potassium Chloride Carbon Dioxide BUN Creatinine Glucose POC Glucose 136 H 116 H 109 H Calcium Ferritin Total Bilirubin Alkaline Phosphatase Lactate Dehydrogenase Total Creatine Kinase CK-MB (CK-2) Rel Index Troponin T C-Reactive Protein Total Protein Albumin Prealbumin LDL Cholesterol Direct HDL Cholesterol Arterial Blood Glucose Arterial Blood Ionized Calcium Urine WBC (Auto) 03/16/20 03/17/20 03/17/20 23:56 04:40 04:40 WBC 18.0 H RBC 3.33 L Hgb 9.5 L Hct 28.8 L MCV MCH RDW 16.4 H Plt Count 499 H Lymph % (Auto) [place] % (Auto) Lymph # (Auto) [place] # (Auto) Seg Neutrophils % Seg Neuts % (Manual) 82.0 H Lymphocytes % (Manual) 8.0 L Monocytes % (Manual) Basophils % (Manual) Seg Neutrophils # Seg Neutrophils # Man 14.8 H Lymphocytes # (Manual) Monocytes # (Manual) 1.3 H Eosinophils # (Manual) Basophils # (Manual) 0.2 H PT INR D-Dimer ABG pH POC ABG pCO2 POC ABG pO2 ABG pO2 ABG HCO3 ABG O2 Saturation ABG Base Excess ABG Hemoglobin ABG Oxyhemoglobin ABG Potassium ABG Glucose Oxyhemoglobin Carboxyhemoglobin Sodium Potassium Chloride 97.7 L Carbon Dioxide 32 H BUN Creatinine < 0.2 L Glucose 114 H POC Glucose 131 H Calcium Ferritin Total Bilirubin Alkaline Phosphatase Lactate Dehydrogenase Total Creatine Kinase CK-MB (CK-2) Rel Index Troponin T C-Reactive Protein Total Protein Albumin Prealbumin LDL Cholesterol Direct HDL Cholesterol Arterial Blood Glucose Arterial Blood Ionized Calcium Urine WBC (Auto) 03/18/20 03/18/20 03/18/20 00:21 05:21 11:55 WBC RBC Hgb Hct MCV MCH RDW Plt Count Lymph % (Auto) [place] % (Auto) Lymph # (Auto) [place] # (Auto) Seg Neutrophils % Seg Neuts % (Manual) Lymphocytes % (Manual) Monocytes % (Manual) Basophils % (Manual) Seg Neutrophils # Seg Neutrophils # Man Lymphocytes # (Manual) Monocytes # (Manual) Eosinophils # (Manual) Basophils # (Manual) PT INR D-Dimer ABG pH POC ABG pCO2 POC ABG pO2 ABG pO2 ABG HCO3 ABG O2 Saturation ABG Base Excess ABG Hemoglobin ABG Oxyhemoglobin ABG Potassium ABG Glucose Oxyhemoglobin Carboxyhemoglobin Sodium Potassium Chloride Carbon Dioxide BUN Creatinine Glucose POC Glucose 124 H 138 H 119 H Calcium Ferritin Total Bilirubin Alkaline Phosphatase Lactate Dehydrogenase Total Creatine Kinase CK-MB (CK-2) Rel Index Troponin T C-Reactive Protein Total Protein Albumin Prealbumin LDL Cholesterol Direct HDL Cholesterol Arterial Blood Glucose Arterial Blood Ionized Calcium Urine WBC (Auto) 03/18/20 03/18/20 03/19/20 17:03 23:58 05:24 WBC RBC Hgb Hct MCV MCH RDW Plt Count Lymph % (Auto) [place] % (Auto) Lymph # (Auto) [place] # (Auto) Seg Neutrophils % Seg Neuts % (Manual) Lymphocytes % (Manual) Monocytes % (Manual) Basophils % (Manual) Seg Neutrophils # Seg Neutrophils # Man Lymphocytes # (Manual) Monocytes # (Manual) Eosinophils # (Manual) Basophils # (Manual) PT INR D-Dimer ABG pH POC ABG pCO2 POC ABG pO2 ABG pO2 ABG HCO3 ABG O2 Saturation ABG Base Excess ABG Hemoglobin ABG Oxyhemoglobin ABG Potassium ABG Glucose Oxyhemoglobin Carboxyhemoglobin Sodium Potassium Chloride Carbon Dioxide BUN Creatinine Glucose POC Glucose 128 H 128 H 115 H Calcium Ferritin Total Bilirubin Alkaline Phosphatase Lactate Dehydrogenase Total Creatine Kinase CK-MB (CK-2) Rel Index Troponin T C-Reactive Protein Total Protein Albumin Prealbumin LDL Cholesterol Direct HDL Cholesterol Arterial Blood Glucose Arterial Blood Ionized Calcium Urine WBC (Auto) 03/19/20 03/19/20 03/19/20 08:05 08:05 11:56 WBC 16.8 H RBC 3.36 L Hgb 9.4 L Hct 28.8 L MCV MCH RDW 17.4 H Plt Count 567 H Lymph % (Auto) 7.8 L [place] % (Auto) Lymph # (Auto) [place] # (Auto) 1.2 H Seg Neutrophils % 83.5 H Seg Neuts % (Manual) Lymphocytes % (Manual) Monocytes % (Manual) Basophils % (Manual) Seg Neutrophils # 14.1 H Seg Neutrophils # Man Lymphocytes # (Manual) Monocytes # (Manual) Eosinophils # (Manual) Basophils # (Manual) PT INR D-Dimer ABG pH POC ABG pCO2 POC ABG pO2 ABG pO2 ABG HCO3 ABG O2 Saturation ABG Base Excess ABG Hemoglobin ABG Oxyhemoglobin ABG Potassium ABG Glucose Oxyhemoglobin Carboxyhemoglobin Sodium Potassium Chloride Carbon Dioxide 36 H BUN Creatinine < 0.2 L Glucose 135 H POC Glucose 128 H Calcium Ferritin Total Bilirubin Alkaline Phosphatase Lactate Dehydrogenase Total Creatine Kinase CK-MB (CK-2) Rel Index Troponin T C-Reactive Protein Total Protein Albumin Prealbumin LDL Cholesterol Direct HDL Cholesterol Arterial Blood Glucose Arterial Blood Ionized Calcium Urine WBC (Auto) 03/19/20 03/20/20 03/20/20 23:59 05:12 16:52 WBC RBC Hgb Hct MCV MCH RDW Plt Count Lymph % (Auto) [place] % (Auto) Lymph # (Auto) [place] # (Auto) Seg Neutrophils % Seg Neuts % (Manual) Lymphocytes % (Manual) Monocytes % (Manual) Basophils % (Manual) Seg Neutrophils # Seg Neutrophils # Man Lymphocytes # (Manual) Monocytes # (Manual) Eosinophils # (Manual) Basophils # (Manual) PT INR D-Dimer ABG pH POC ABG pCO2 POC ABG pO2 ABG pO2 ABG HCO3 ABG O2 Saturation ABG Base Excess ABG Hemoglobin ABG Oxyhemoglobin ABG Potassium ABG Glucose Oxyhemoglobin Carboxyhemoglobin Sodium Potassium Chloride Carbon Dioxide BUN Creatinine Glucose POC Glucose 120 H 131 H 124 H Calcium Ferritin Total Bilirubin Alkaline Phosphatase Lactate Dehydrogenase Total Creatine Kinase CK-MB (CK-2) Rel Index Troponin T C-Reactive Protein Total Protein Albumin Prealbumin LDL Cholesterol Direct HDL Cholesterol Arterial Blood Glucose Arterial Blood Ionized Calcium Urine WBC (Auto) 03/20/20 03/21/20 03/21/20 23:35 04:50 07:35 WBC 15.2 H RBC 3.39 L Hgb 9.4 L Hct 29.4 L MCV MCH RDW 17.6 H Plt Count 518 H Lymph % (Auto) [place] % (Auto) Lymph # (Auto) [place] # (Auto) Seg Neutrophils % Seg Neuts % (Manual) 83.0 H Lymphocytes % (Manual) 10.0 L Monocytes % (Manual) Basophils % (Manual) 2.0 H Seg Neutrophils # Seg Neutrophils # Man 12.6 H Lymphocytes # (Manual) Monocytes # (Manual) Eosinophils # (Manual) Basophils # (Manual) 0.3 H PT INR D-Dimer ABG pH POC ABG pCO2 POC ABG pO2 ABG pO2 ABG HCO3 ABG O2 Saturation ABG Base Excess ABG Hemoglobin ABG Oxyhemoglobin ABG Potassium ABG Glucose Oxyhemoglobin Carboxyhemoglobin Sodium Potassium Chloride Carbon Dioxide BUN Creatinine Glucose POC Glucose 125 H 127 H Calcium Ferritin Total Bilirubin Alkaline Phosphatase Lactate Dehydrogenase Total Creatine Kinase CK-MB (CK-2) Rel Index Troponin T C-Reactive Protein Total Protein Albumin Prealbumin LDL Cholesterol Direct HDL Cholesterol Arterial Blood Glucose Arterial Blood Ionized Calcium Urine WBC (Auto) 03/21/20 03/21/20 03/21/20 07:35 11:45 17:22 WBC RBC Hgb Hct MCV MCH RDW Plt Count Lymph % (Auto) [place] % (Auto) Lymph # (Auto) [place] # (Auto) Seg Neutrophils % Seg Neuts % (Manual) Lymphocytes % (Manual) Monocytes % (Manual) Basophils % (Manual) Seg Neutrophils # Seg Neutrophils # Man Lymphocytes # (Manual) Monocytes # (Manual) Eosinophils # (Manual) Basophils # (Manual) PT INR D-Dimer ABG pH POC ABG pCO2 POC ABG pO2 ABG pO2 ABG HCO3 ABG O2 Saturation ABG Base Excess ABG Hemoglobin ABG Oxyhemoglobin ABG Potassium ABG Glucose Oxyhemoglobin Carboxyhemoglobin Sodium 136 L Potassium Chloride 97.7 L Carbon Dioxide 32 H BUN Creatinine < 0.2 L Glucose 103 H POC Glucose 126 H 120 H Calcium Ferritin Total Bilirubin Alkaline Phosphatase Lactate Dehydrogenase Total Creatine Kinase CK-MB (CK-2) Rel Index Troponin T C-Reactive Protein Total Protein Albumin Prealbumin LDL Cholesterol Direct HDL Cholesterol Arterial Blood Glucose Arterial Blood Ionized Calcium Urine WBC (Auto) 03/22/20 03/22/20 03/22/20 05:09 06:34 06:34 WBC 17.5 H RBC 3.52 L Hgb 10.0 L Hct 30.7 L MCV MCH RDW 17.5 H Plt Count 499 H Lymph % (Auto) [place] % (Auto) Lymph # (Auto) [place] # (Auto) Seg Neutrophils % Seg Neuts % (Manual) 80.0 H Lymphocytes % (Manual) 10.0 L Monocytes % (Manual) Basophils % (Manual) Seg Neutrophils # Seg Neutrophils # Man 14.0 H Lymphocytes # (Manual) Monocytes # (Manual) Eosinophils # (Manual) Basophils # (Manual) PT INR D-Dimer ABG pH POC ABG pCO2 POC ABG pO2 ABG pO2 ABG HCO3 ABG O2 Saturation ABG Base Excess ABG Hemoglobin ABG Oxyhemoglobin ABG Potassium ABG Glucose Oxyhemoglobin Carboxyhemoglobin Sodium Potassium Chloride 96.6 L Carbon Dioxide 38 H BUN Creatinine < 0.2 L Glucose 139 H POC Glucose 125 H Calcium Ferritin Total Bilirubin Alkaline Phosphatase Lactate Dehydrogenase Total Creatine Kinase CK-MB (CK-2) Rel Index Troponin T C-Reactive Protein Total Protein Albumin Prealbumin LDL Cholesterol Direct HDL Cholesterol Arterial Blood Glucose Arterial Blood Ionized Calcium Urine WBC (Auto) 03/22/20 03/22/20 03/22/20 11:45 18:00 23:32 WBC RBC Hgb Hct MCV MCH RDW Plt Count Lymph % (Auto) [place] % (Auto) Lymph # (Auto) [place] # (Auto) Seg Neutrophils % Seg Neuts % (Manual) Lymphocytes % (Manual) Monocytes % (Manual) Basophils % (Manual) Seg Neutrophils # Seg Neutrophils # Man Lymphocytes # (Manual) Monocytes # (Manual) Eosinophils # (Manual) Basophils # (Manual) PT INR D-Dimer ABG pH POC ABG pCO2 POC ABG pO2 ABG pO2 ABG HCO3 ABG O2 Saturation ABG Base Excess ABG Hemoglobin ABG Oxyhemoglobin ABG Potassium ABG Glucose Oxyhemoglobin Carboxyhemoglobin Sodium Potassium Chloride Carbon Dioxide BUN Creatinine Glucose POC Glucose 135 H 133 H Calcium Ferritin Total Bilirubin Alkaline Phosphatase Lactate Dehydrogenase Total Creatine Kinase CK-MB (CK-2) Rel Index Troponin T 0.113 H* C-Reactive Protein Total Protein Albumin Prealbumin LDL Cholesterol Direct HDL Cholesterol Arterial Blood Glucose Arterial Blood Ionized Calcium Urine WBC (Auto) 03/23/20 03/23/20 03/23/20 01:47 06:21 07:57 WBC RBC Hgb Hct MCV MCH RDW Plt Count Lymph % (Auto) [place] % (Auto) Lymph # (Auto) [place] # (Auto) Seg Neutrophils % Seg Neuts % (Manual) Lymphocytes % (Manual) Monocytes % (Manual) Basophils % (Manual) Seg Neutrophils # Seg Neutrophils # Man Lymphocytes # (Manual) Monocytes # (Manual) Eosinophils # (Manual) Basophils # (Manual) PT INR D-Dimer ABG pH POC ABG pCO2 POC ABG pO2 ABG pO2 ABG HCO3 ABG O2 Saturation ABG Base Excess ABG Hemoglobin ABG Oxyhemoglobin ABG Potassium ABG Glucose Oxyhemoglobin Carboxyhemoglobin Sodium Potassium Chloride Carbon Dioxide BUN Creatinine Glucose POC Glucose 130 H Calcium Ferritin Total Bilirubin Alkaline Phosphatase Lactate Dehydrogenase Total Creatine Kinase CK-MB (CK-2) Rel Index Troponin T 0.143 H* D 0.105 H* D C-Reactive Protein Total Protein Albumin Prealbumin LDL Cholesterol Direct HDL Cholesterol Arterial Blood Glucose Arterial Blood Ionized Calcium Urine WBC (Auto) 03/23/20 03/24/20 03/24/20 12:02 05:33 07:15 WBC 18.0 H RBC Hgb 11.0 L Hct 34.0 L MCV MCH RDW 17.4 H Plt Count 520 H Lymph % (Auto) [place] % (Auto) Lymph # (Auto) [place] # (Auto) Seg Neutrophils % Seg Neuts % (Manual) 88.0 H Lymphocytes % (Manual) 7.0 L Monocytes % (Manual) Basophils % (Manual) Seg Neutrophils # Seg Neutrophils # Man 15.8 H Lymphocytes # (Manual) Monocytes # (Manual) Eosinophils # (Manual) Basophils # (Manual) PT INR D-Dimer ABG pH POC ABG pCO2 POC ABG pO2 ABG pO2 ABG HCO3 ABG O2 Saturation ABG Base Excess ABG Hemoglobin ABG Oxyhemoglobin ABG Potassium ABG Glucose Oxyhemoglobin Carboxyhemoglobin Sodium Potassium Chloride Carbon Dioxide BUN Creatinine Glucose POC Glucose 137 H 112 H Calcium Ferritin Total Bilirubin Alkaline Phosphatase Lactate Dehydrogenase Total Creatine Kinase CK-MB (CK-2) Rel Index Troponin T C-Reactive Protein Total Protein Albumin Prealbumin LDL Cholesterol Direct HDL Cholesterol Arterial Blood Glucose Arterial Blood Ionized Calcium Urine WBC (Auto) 03/24/20 03/24/20 03/24/20 07:15 11:22 23:30 WBC RBC Hgb Hct MCV MCH RDW Plt Count Lymph % (Auto) [place] % (Auto) Lymph # (Auto) [place] # (Auto) Seg Neutrophils % Seg Neuts % (Manual) Lymphocytes % (Manual) Monocytes % (Manual) Basophils % (Manual) Seg Neutrophils # Seg Neutrophils # Man Lymphocytes # (Manual) Monocytes # (Manual) Eosinophils # (Manual) Basophils # (Manual) PT INR D-Dimer ABG pH POC ABG pCO2 POC ABG pO2 ABG pO2 ABG HCO3 ABG O2 Saturation ABG Base Excess ABG Hemoglobin ABG Oxyhemoglobin ABG Potassium ABG Glucose Oxyhemoglobin Carboxyhemoglobin Sodium Potassium Chloride 96.6 L Carbon Dioxide 38 H BUN Creatinine < 0.2 L Glucose 141 H POC Glucose 130 H 120 H Calcium Ferritin Total Bilirubin Alkaline Phosphatase Lactate Dehydrogenase Total Creatine Kinase CK-MB (CK-2) Rel Index Troponin T C-Reactive Protein Total Protein Albumin Prealbumin LDL Cholesterol Direct HDL Cholesterol Arterial Blood Glucose Arterial Blood Ionized Calcium Urine WBC (Auto) 03/25/20 03/25/20 03/25/20 05:48 17:53 23:18 WBC RBC Hgb Hct MCV MCH RDW Plt Count Lymph % (Auto) [place] % (Auto) Lymph # (Auto) [place] # (Auto) Seg Neutrophils % Seg Neuts % (Manual) Lymphocytes % (Manual) Monocytes % (Manual) Basophils % (Manual) Seg Neutrophils # Seg Neutrophils # Man Lymphocytes # (Manual) Monocytes # (Manual) Eosinophils # (Manual) Basophils # (Manual) PT INR D-Dimer ABG pH POC ABG pCO2 POC ABG pO2 ABG pO2 ABG HCO3 ABG O2 Saturation ABG Base Excess ABG Hemoglobin ABG Oxyhemoglobin ABG Potassium ABG Glucose Oxyhemoglobin Carboxyhemoglobin Sodium Potassium Chloride Carbon Dioxide BUN Creatinine Glucose POC Glucose 124 H 109 H 131 H Calcium Ferritin Total Bilirubin Alkaline Phosphatase Lactate Dehydrogenase Total Creatine Kinase CK-MB (CK-2) Rel Index Troponin T C-Reactive Protein Total Protein Albumin Prealbumin LDL Cholesterol Direct HDL Cholesterol Arterial Blood Glucose Arterial Blood Ionized Calcium Urine WBC (Auto) 03/26/20 03/26/20 03/26/20 05:21 08:49 08:49 WBC 19.7 H RBC Hgb 10.7 L Hct 33.5 L MCV MCH 27 L RDW 17.1 H Plt Count 480 H Lymph % (Auto) 5.7 L [place] % (Auto) Lymph # (Auto) 1.1 L [place] # (Auto) 1.2 H Seg Neutrophils % 87.7 H Seg Neuts % (Manual) Lymphocytes % (Manual) Monocytes % (Manual) Basophils % (Manual) Seg Neutrophils # 17.2 H Seg Neutrophils # Man Lymphocytes # (Manual) Monocytes # (Manual) Eosinophils # (Manual) Basophils # (Manual) PT INR D-Dimer ABG pH POC ABG pCO2 POC ABG pO2 ABG pO2 ABG HCO3 ABG O2 Saturation ABG Base Excess ABG Hemoglobin ABG Oxyhemoglobin ABG Potassium ABG Glucose Oxyhemoglobin Carboxyhemoglobin Sodium Potassium Chloride 97.2 L Carbon Dioxide 36 H BUN Creatinine < 0.2 L Glucose 127 H POC Glucose 116 H Calcium Ferritin Total Bilirubin Alkaline Phosphatase Lactate Dehydrogenase Total Creatine Kinase CK-MB (CK-2) Rel Index Troponin T C-Reactive Protein Total Protein Albumin Prealbumin LDL Cholesterol Direct HDL Cholesterol Arterial Blood Glucose Arterial Blood Ionized Calcium Urine WBC (Auto) 03/26/20 03/26/20 03/26/20 11:38 18:44 23:06 WBC RBC Hgb Hct MCV MCH RDW Plt Count Lymph % (Auto) [place] % (Auto) Lymph # (Auto) [place] # (Auto) Seg Neutrophils % Seg Neuts % (Manual) Lymphocytes % (Manual) Monocytes % (Manual) Basophils % (Manual) Seg Neutrophils # Seg Neutrophils # Man Lymphocytes # (Manual) Monocytes # (Manual) Eosinophils # (Manual) Basophils # (Manual) PT INR D-Dimer ABG pH POC ABG pCO2 POC ABG pO2 ABG pO2 ABG HCO3 ABG O2 Saturation ABG Base Excess ABG Hemoglobin ABG Oxyhemoglobin ABG Potassium ABG Glucose Oxyhemoglobin Carboxyhemoglobin Sodium Potassium Chloride Carbon Dioxide BUN Creatinine Glucose POC Glucose 120 H 111 H 134 H Calcium Ferritin Total Bilirubin Alkaline Phosphatase Lactate Dehydrogenase Total Creatine Kinase CK-MB (CK-2) Rel Index Troponin T C-Reactive Protein Total Protein Albumin Prealbumin LDL Cholesterol Direct HDL Cholesterol Arterial Blood Glucose Arterial Blood Ionized Calcium Urine WBC (Auto) 03/27/20 03/27/20 03/27/20 05:41 05:59 05:59 WBC 18.6 H RBC Hgb 10.1 L Hct 31.4 L MCV MCH RDW 17.2 H Plt Count Lymph % (Auto) 8.0 L [place] % (Auto) Lymph # (Auto) [place] # (Auto) 1.2 H Seg Neutrophils % 84.7 H Seg Neuts % (Manual) Lymphocytes % (Manual) Monocytes % (Manual) Basophils % (Manual) Seg Neutrophils # 15.8 H Seg Neutrophils # Man Lymphocytes # (Manual) Monocytes # (Manual) Eosinophils # (Manual) Basophils # (Manual) PT INR D-Dimer ABG pH POC ABG pCO2 POC ABG pO2 ABG pO2 ABG HCO3 ABG O2 Saturation ABG Base Excess ABG Hemoglobin ABG Oxyhemoglobin ABG Potassium ABG Glucose Oxyhemoglobin Carboxyhemoglobin Sodium Potassium Chloride Carbon Dioxide 34 H BUN Creatinine < 0.2 L Glucose 127 H POC Glucose 129 H Calcium Ferritin Total Bilirubin Alkaline Phosphatase Lactate Dehydrogenase Total Creatine Kinase CK-MB (CK-2) Rel Index Troponin T C-Reactive Protein Total Protein Albumin Prealbumin LDL Cholesterol Direct HDL Cholesterol Arterial Blood Glucose Arterial Blood Ionized Calcium Urine WBC (Auto) 03/27/20 03/27/20 03/28/20 17:28 23:22 05:23 WBC RBC Hgb Hct MCV MCH RDW Plt Count Lymph % (Auto) [place] % (Auto) Lymph # (Auto) [place] # (Auto) Seg Neutrophils % Seg Neuts % (Manual) Lymphocytes % (Manual) Monocytes % (Manual) Basophils % (Manual) Seg Neutrophils # Seg Neutrophils # Man Lymphocytes # (Manual) Monocytes # (Manual) Eosinophils # (Manual) Basophils # (Manual) PT INR D-Dimer ABG pH POC ABG pCO2 POC ABG pO2 ABG pO2 ABG HCO3 ABG O2 Saturation ABG Base Excess ABG Hemoglobin ABG Oxyhemoglobin ABG Potassium ABG Glucose Oxyhemoglobin Carboxyhemoglobin Sodium Potassium Chloride Carbon Dioxide BUN Creatinine Glucose POC Glucose 108 H 119 H 129 H Calcium Ferritin Total Bilirubin Alkaline Phosphatase Lactate Dehydrogenase Total Creatine Kinase CK-MB (CK-2) Rel Index Troponin T C-Reactive Protein Total Protein Albumin Prealbumin LDL Cholesterol Direct HDL Cholesterol Arterial Blood Glucose Arterial Blood Ionized Calcium Urine WBC (Auto) 03/28/20 03/28/20 03/28/20 10:28 10:28 11:36 WBC 23.6 H RBC 3.62 L Hgb 10.0 L Hct 30.8 L MCV MCH RDW 16.4 H Plt Count Lymph % (Auto) [place] % (Auto) Lymph # (Auto) [place] # (Auto) Seg Neutrophils % Seg Neuts % (Manual) 89.0 H Lymphocytes % (Manual) 5.0 L Monocytes % (Manual) Basophils % (Manual) Seg Neutrophils # Seg Neutrophils # Man 21.0 H Lymphocytes # (Manual) Monocytes # (Manual) 1.2 H Eosinophils # (Manual) Basophils # (Manual) 0.2 H PT INR D-Dimer ABG pH POC ABG pCO2 POC ABG pO2 ABG pO2 ABG HCO3 ABG O2 Saturation ABG Base Excess ABG Hemoglobin ABG Oxyhemoglobin ABG Potassium ABG Glucose Oxyhemoglobin Carboxyhemoglobin Sodium 134 L Potassium Chloride 94.2 L Carbon Dioxide 35 H BUN Creatinine < 0.2 L Glucose 134 H POC Glucose Calcium Ferritin Total Bilirubin Alkaline Phosphatase Lactate Dehydrogenase Total Creatine Kinase CK-MB (CK-2) Rel Index Troponin T C-Reactive Protein Total Protein Albumin Prealbumin LDL Cholesterol Direct HDL Cholesterol Arterial Blood Glucose Arterial Blood Ionized Calcium Urine WBC (Auto) 39.0 H 03/28/20 03/28/20 03/28/20 11:51 17:08 17:17 WBC RBC Hgb Hct MCV MCH RDW Plt Count Lymph % (Auto) [place] % (Auto) Lymph # (Auto) [place] # (Auto) Seg Neutrophils % Seg Neuts % (Manual) Lymphocytes % (Manual) Monocytes % (Manual) Basophils % (Manual) Seg Neutrophils # Seg Neutrophils # Man Lymphocytes # (Manual) Monocytes # (Manual) Eosinophils # (Manual) Basophils # (Manual) PT INR D-Dimer ABG pH POC ABG pCO2 POC ABG pO2 ABG pO2 ABG HCO3 ABG O2 Saturation ABG Base Excess ABG Hemoglobin ABG Oxyhemoglobin ABG Potassium ABG Glucose Oxyhemoglobin Carboxyhemoglobin Sodium Potassium Chloride Carbon Dioxide BUN Creatinine Glucose POC Glucose 123 H 112 H Calcium Ferritin Total Bilirubin Alkaline Phosphatase Lactate Dehydrogenase Total Creatine Kinase 47 L CK-MB (CK-2) Rel Index 4.6 H Troponin T 0.090 H C-Reactive Protein Total Protein Albumin Prealbumin LDL Cholesterol Direct HDL Cholesterol Arterial Blood Glucose Arterial Blood Ionized Calcium Urine WBC (Auto) 03/28/20 03/29/20 03/29/20 23:22 05:22 10:58 WBC RBC Hgb Hct MCV MCH RDW Plt Count Lymph % (Auto) [place] % (Auto) Lymph # (Auto) [place] # (Auto) Seg Neutrophils % Seg Neuts % (Manual) Lymphocytes % (Manual) Monocytes % (Manual) Basophils % (Manual) Seg Neutrophils # Seg Neutrophils # Man Lymphocytes # (Manual) Monocytes # (Manual) Eosinophils # (Manual) Basophils # (Manual) PT INR D-Dimer ABG pH POC ABG pCO2 POC ABG pO2 ABG pO2 ABG HCO3 ABG O2 Saturation ABG Base Excess ABG Hemoglobin ABG Oxyhemoglobin ABG Potassium ABG Glucose Oxyhemoglobin Carboxyhemoglobin Sodium Potassium Chloride Carbon Dioxide BUN Creatinine Glucose POC Glucose 122 H 116 H 133 H Calcium Ferritin Total Bilirubin Alkaline Phosphatase Lactate Dehydrogenase Total Creatine Kinase CK-MB (CK-2) Rel Index Troponin T C-Reactive Protein Total Protein Albumin Prealbumin LDL Cholesterol Direct HDL Cholesterol Arterial Blood Glucose Arterial Blood Ionized Calcium Urine WBC (Auto) 03/29/20 03/29/20 03/30/20 17:18 23:14 04:57 WBC RBC Hgb Hct MCV MCH RDW Plt Count Lymph % (Auto) [place] % (Auto) Lymph # (Auto) [place] # (Auto) Seg Neutrophils % Seg Neuts % (Manual) Lymphocytes % (Manual) Monocytes % (Manual) Basophils % (Manual) Seg Neutrophils # Seg Neutrophils # Man Lymphocytes # (Manual) Monocytes # (Manual) Eosinophils # (Manual) Basophils # (Manual) PT INR D-Dimer ABG pH POC ABG pCO2 POC ABG pO2 ABG pO2 ABG HCO3 ABG O2 Saturation ABG Base Excess ABG Hemoglobin ABG Oxyhemoglobin ABG Potassium ABG Glucose Oxyhemoglobin Carboxyhemoglobin Sodium Potassium Chloride Carbon Dioxide BUN Creatinine Glucose POC Glucose 111 H 114 H 130 H Calcium Ferritin Total Bilirubin Alkaline Phosphatase Lactate Dehydrogenase Total Creatine Kinase CK-MB (CK-2) Rel Index Troponin T C-Reactive Protein Total Protein Albumin Prealbumin LDL Cholesterol Direct HDL Cholesterol Arterial Blood Glucose Arterial Blood Ionized Calcium Urine WBC (Auto) 03/30/20 03/30/20 03/30/20 11:38 14:47 14:47 WBC 19.9 H RBC Hgb 10.9 L Hct 34.4 L MCV MCH 27 L RDW 16.5 H Plt Count 441 H Lymph % (Auto) 6.4 L [place] % (Auto) Lymph # (Auto) [place] # (Auto) 1.4 H Seg Neutrophils % 86.1 H Seg Neuts % (Manual) Lymphocytes % (Manual) Monocytes % (Manual) Basophils % (Manual) Seg Neutrophils # 17.1 H Seg Neutrophils # Man Lymphocytes # (Manual) Monocytes # (Manual) Eosinophils # (Manual) Basophils # (Manual) PT INR D-Dimer ABG pH POC ABG pCO2 POC ABG pO2 ABG pO2 ABG HCO3 ABG O2 Saturation ABG Base Excess ABG Hemoglobin ABG Oxyhemoglobin ABG Potassium ABG Glucose Oxyhemoglobin Carboxyhemoglobin Sodium 133 L Potassium Chloride 94.6 L Carbon Dioxide 33 H BUN Creatinine < 0.2 L Glucose 194 H POC Glucose 139 H Calcium Ferritin Total Bilirubin Alkaline Phosphatase Lactate Dehydrogenase Total Creatine Kinase CK-MB (CK-2) Rel Index Troponin T C-Reactive Protein Total Protein Albumin 2.8 L Prealbumin LDL Cholesterol Direct HDL Cholesterol Arterial Blood Glucose Arterial Blood Ionized Calcium Urine WBC (Auto) 03/30/20 03/31/20 03/31/20 17:07 05:02 15:21 WBC RBC Hgb Hct MCV MCH RDW Plt Count Lymph % (Auto) [place] % (Auto) Lymph # (Auto) [place] # (Auto) Seg Neutrophils % Seg Neuts % (Manual) Lymphocytes % (Manual) Monocytes % (Manual) Basophils % (Manual) Seg Neutrophils # Seg Neutrophils # Man Lymphocytes # (Manual) Monocytes # (Manual) Eosinophils # (Manual) Basophils # (Manual) PT INR D-Dimer ABG pH POC ABG pCO2 POC ABG pO2 ABG pO2 ABG HCO3 ABG O2 Saturation ABG Base Excess ABG Hemoglobin ABG Oxyhemoglobin ABG Potassium ABG Glucose Oxyhemoglobin Carboxyhemoglobin Sodium Potassium Chloride Carbon Dioxide BUN Creatinine Glucose POC Glucose 163 H 108 H 110 H Calcium Ferritin Total Bilirubin Alkaline Phosphatase Lactate Dehydrogenase Total Creatine Kinase CK-MB (CK-2) Rel Index Troponin T C-Reactive Protein Total Protein Albumin Prealbumin LDL Cholesterol Direct HDL Cholesterol Arterial Blood Glucose Arterial Blood Ionized Calcium Urine WBC (Auto) 03/31/20 03/31/20 04/01/20 17:58 23:19 05:09 WBC RBC Hgb Hct MCV MCH RDW Plt Count Lymph % (Auto) [place] % (Auto) Lymph # (Auto) [place] # (Auto) Seg Neutrophils % Seg Neuts % (Manual) Lymphocytes % (Manual) Monocytes % (Manual) Basophils % (Manual) Seg Neutrophils # Seg Neutrophils # Man Lymphocytes # (Manual) Monocytes # (Manual) Eosinophils # (Manual) Basophils # (Manual) PT INR D-Dimer ABG pH POC ABG pCO2 POC ABG pO2 ABG pO2 ABG HCO3 ABG O2 Saturation ABG Base Excess ABG Hemoglobin ABG Oxyhemoglobin ABG Potassium ABG Glucose Oxyhemoglobin Carboxyhemoglobin Sodium Potassium Chloride Carbon Dioxide BUN Creatinine Glucose POC Glucose 110 H 131 H 124 H Calcium Ferritin Total Bilirubin Alkaline Phosphatase Lactate Dehydrogenase Total Creatine Kinase CK-MB (CK-2) Rel Index Troponin T C-Reactive Protein Total Protein Albumin Prealbumin LDL Cholesterol Direct HDL Cholesterol Arterial Blood Glucose Arterial Blood Ionized Calcium Urine WBC (Auto) 04/01/20 04/01/20 04/01/20 11:50 17:01 23:21 WBC RBC Hgb Hct MCV MCH RDW Plt Count Lymph % (Auto) [place] % (Auto) Lymph # (Auto) [place] # (Auto) Seg Neutrophils % Seg Neuts % (Manual) Lymphocytes % (Manual) Monocytes % (Manual) Basophils % (Manual) Seg Neutrophils # Seg Neutrophils # Man Lymphocytes # (Manual) Monocytes # (Manual) Eosinophils # (Manual) Basophils # (Manual) PT INR D-Dimer ABG pH POC ABG pCO2 POC ABG pO2 ABG pO2 ABG HCO3 ABG O2 Saturation ABG Base Excess ABG Hemoglobin ABG Oxyhemoglobin ABG Potassium ABG Glucose Oxyhemoglobin Carboxyhemoglobin Sodium Potassium Chloride Carbon Dioxide BUN Creatinine Glucose POC Glucose 136 H 115 H 124 H Calcium Ferritin Total Bilirubin Alkaline Phosphatase Lactate Dehydrogenase Total Creatine Kinase CK-MB (CK-2) Rel Index Troponin T C-Reactive Protein Total Protein Albumin Prealbumin LDL Cholesterol Direct HDL Cholesterol Arterial Blood Glucose Arterial Blood Ionized Calcium Urine WBC (Auto) 04/02/20 04/02/20 04/02/20 05:27 11:58 17:58 WBC RBC Hgb Hct MCV MCH RDW Plt Count Lymph % (Auto) [place] % (Auto) Lymph # (Auto) [place] # (Auto) Seg Neutrophils % Seg Neuts % (Manual) Lymphocytes % (Manual) Monocytes % (Manual) Basophils % (Manual) Seg Neutrophils # Seg Neutrophils # Man Lymphocytes # (Manual) Monocytes # (Manual) Eosinophils # (Manual) Basophils # (Manual) PT INR D-Dimer ABG pH POC ABG pCO2 POC ABG pO2 ABG pO2 ABG HCO3 ABG O2 Saturation ABG Base Excess ABG Hemoglobin ABG Oxyhemoglobin ABG Potassium ABG Glucose Oxyhemoglobin Carboxyhemoglobin Sodium Potassium Chloride Carbon Dioxide BUN Creatinine Glucose POC Glucose 117 H 133 H 122 H Calcium Ferritin Total Bilirubin Alkaline Phosphatase Lactate Dehydrogenase Total Creatine Kinase CK-MB (CK-2) Rel Index Troponin T C-Reactive Protein Total Protein Albumin Prealbumin LDL Cholesterol Direct HDL Cholesterol Arterial Blood Glucose Arterial Blood Ionized Calcium Urine WBC (Auto) 04/02/20 04/03/20 04/03/20 23:12 05:11 11:11 WBC RBC Hgb Hct MCV MCH RDW Plt Count Lymph % (Auto) [place] % (Auto) Lymph # (Auto) [place] # (Auto) Seg Neutrophils % Seg Neuts % (Manual) Lymphocytes % (Manual) Monocytes % (Manual) Basophils % (Manual) Seg Neutrophils # Seg Neutrophils # Man Lymphocytes # (Manual) Monocytes # (Manual) Eosinophils # (Manual) Basophils # (Manual) PT INR D-Dimer ABG pH POC ABG pCO2 POC ABG pO2 ABG pO2 ABG HCO3 ABG O2 Saturation ABG Base Excess ABG Hemoglobin ABG Oxyhemoglobin ABG Potassium ABG Glucose Oxyhemoglobin Carboxyhemoglobin Sodium Potassium Chloride Carbon Dioxide BUN Creatinine Glucose POC Glucose 130 H 139 H 136 H Calcium Ferritin Total Bilirubin Alkaline Phosphatase Lactate Dehydrogenase Total Creatine Kinase CK-MB (CK-2) Rel Index Troponin T C-Reactive Protein Total Protein Albumin Prealbumin LDL Cholesterol Direct HDL Cholesterol Arterial Blood Glucose Arterial Blood Ionized Calcium Urine WBC (Auto) 04/03/20 04/03/20 04/04/20 16:51 23:25 05:29 WBC RBC Hgb Hct MCV MCH RDW Plt Count Lymph % (Auto) [place] % (Auto) Lymph # (Auto) [place] # (Auto) Seg Neutrophils % Seg Neuts % (Manual) Lymphocytes % (Manual) Monocytes % (Manual) Basophils % (Manual) Seg Neutrophils # Seg Neutrophils # Man Lymphocytes # (Manual) Monocytes # (Manual) Eosinophils # (Manual) Basophils # (Manual) PT INR D-Dimer ABG pH POC ABG pCO2 POC ABG pO2 ABG pO2 ABG HCO3 ABG O2 Saturation ABG Base Excess ABG Hemoglobin ABG Oxyhemoglobin ABG Potassium ABG Glucose Oxyhemoglobin Carboxyhemoglobin Sodium Potassium Chloride Carbon Dioxide BUN Creatinine Glucose POC Glucose 118 H 111 H 126 H Calcium Ferritin Total Bilirubin Alkaline Phosphatase Lactate Dehydrogenase Total Creatine Kinase CK-MB (CK-2) Rel Index Troponin T C-Reactive Protein Total Protein Albumin Prealbumin LDL Cholesterol Direct HDL Cholesterol Arterial Blood Glucose Arterial Blood Ionized Calcium Urine WBC (Auto) 04/04/20 04/04/20 04/04/20 11:47 17:41 23:05 WBC RBC Hgb Hct MCV MCH RDW Plt Count Lymph % (Auto) [place] % (Auto) Lymph # (Auto) [place] # (Auto) Seg Neutrophils % Seg Neuts % (Manual) Lymphocytes % (Manual) Monocytes % (Manual) Basophils % (Manual) Seg Neutrophils # Seg Neutrophils # Man Lymphocytes # (Manual) Monocytes # (Manual) Eosinophils # (Manual) Basophils # (Manual) PT INR D-Dimer ABG pH POC ABG pCO2 POC ABG pO2 ABG pO2 ABG HCO3 ABG O2 Saturation ABG Base Excess ABG Hemoglobin ABG Oxyhemoglobin ABG Potassium ABG Glucose Oxyhemoglobin Carboxyhemoglobin Sodium Potassium Chloride Carbon Dioxide BUN Creatinine Glucose POC Glucose 123 H 120 H 119 H Calcium Ferritin Total Bilirubin Alkaline Phosphatase Lactate Dehydrogenase Total Creatine Kinase CK-MB (CK-2) Rel Index Troponin T C-Reactive Protein Total Protein Albumin Prealbumin LDL Cholesterol Direct HDL Cholesterol Arterial Blood Glucose Arterial Blood Ionized Calcium Urine WBC (Auto) 04/05/20 04/05/20 04/05/20 05:14 12:16 18:48 WBC RBC Hgb Hct MCV MCH RDW Plt Count Lymph % (Auto) [place] % (Auto) Lymph # (Auto) [place] # (Auto) Seg Neutrophils % Seg Neuts % (Manual) Lymphocytes % (Manual) Monocytes % (Manual) Basophils % (Manual) Seg Neutrophils # Seg Neutrophils # Man Lymphocytes # (Manual) Monocytes # (Manual) Eosinophils # (Manual) Basophils # (Manual) PT INR D-Dimer ABG pH POC ABG pCO2 POC ABG pO2 ABG pO2 ABG HCO3 ABG O2 Saturation ABG Base Excess ABG Hemoglobin ABG Oxyhemoglobin ABG Potassium ABG Glucose Oxyhemoglobin Carboxyhemoglobin Sodium Potassium Chloride Carbon Dioxide BUN Creatinine Glucose POC Glucose 123 H 148 H 106 H Calcium Ferritin Total Bilirubin Alkaline Phosphatase Lactate Dehydrogenase Total Creatine Kinase CK-MB (CK-2) Rel Index Troponin T C-Reactive Protein Total Protein Albumin Prealbumin LDL Cholesterol Direct HDL Cholesterol Arterial Blood Glucose Arterial Blood Ionized Calcium Urine WBC (Auto) 04/06/20 04/06/20 04/06/20 00:47 03:26 08:24 WBC RBC Hgb Hct MCV MCH RDW Plt Count Lymph % (Auto) [place] % (Auto) Lymph # (Auto) [place] # (Auto) Seg Neutrophils % Seg Neuts % (Manual) Lymphocytes % (Manual) Monocytes % (Manual) Basophils % (Manual) Seg Neutrophils # Seg Neutrophils # Man Lymphocytes # (Manual) Monocytes # (Manual) Eosinophils # (Manual) Basophils # (Manual) PT INR D-Dimer ABG pH POC ABG pCO2 POC ABG pO2 ABG pO2 ABG HCO3 ABG O2 Saturation ABG Base Excess ABG Hemoglobin ABG Oxyhemoglobin ABG Potassium ABG Glucose Oxyhemoglobin Carboxyhemoglobin Sodium Potassium Chloride Carbon Dioxide BUN Creatinine Glucose POC Glucose 129 H 134 H 131 H Calcium Ferritin Total Bilirubin Alkaline Phosphatase Lactate Dehydrogenase Total Creatine Kinase CK-MB (CK-2) Rel Index Troponin T C-Reactive Protein Total Protein Albumin Prealbumin LDL Cholesterol Direct HDL Cholesterol Arterial Blood Glucose Arterial Blood Ionized Calcium Urine WBC (Auto) 04/06/20 04/06/20 04/06/20 11:16 16:27 23:01 WBC RBC Hgb Hct MCV MCH RDW Plt Count Lymph % (Auto) [place] % (Auto) Lymph # (Auto) [place] # (Auto) Seg Neutrophils % Seg Neuts % (Manual) Lymphocytes % (Manual) Monocytes % (Manual) Basophils % (Manual) Seg Neutrophils # Seg Neutrophils # Man Lymphocytes # (Manual) Monocytes # (Manual) Eosinophils # (Manual) Basophils # (Manual) PT INR D-Dimer ABG pH POC ABG pCO2 POC ABG pO2 ABG pO2 ABG HCO3 ABG O2 Saturation ABG Base Excess ABG Hemoglobin ABG Oxyhemoglobin ABG Potassium ABG Glucose Oxyhemoglobin Carboxyhemoglobin Sodium Potassium Chloride Carbon Dioxide BUN Creatinine Glucose POC Glucose 131 H 107 H 125 H Calcium Ferritin Total Bilirubin Alkaline Phosphatase Lactate Dehydrogenase Total Creatine Kinase CK-MB (CK-2) Rel Index Troponin T C-Reactive Protein Total Protein Albumin Prealbumin LDL Cholesterol Direct HDL Cholesterol Arterial Blood Glucose Arterial Blood Ionized Calcium Urine WBC (Auto) 04/07/20 04/07/20 04/07/20 05:24 12:41 17:40 WBC RBC Hgb Hct MCV MCH RDW Plt Count Lymph % (Auto) [place] % (Auto) Lymph # (Auto) [place] # (Auto) Seg Neutrophils % Seg Neuts % (Manual) Lymphocytes % (Manual) Monocytes % (Manual) Basophils % (Manual) Seg Neutrophils # Seg Neutrophils # Man Lymphocytes # (Manual) Monocytes # (Manual) Eosinophils # (Manual) Basophils # (Manual) PT INR D-Dimer ABG pH POC ABG pCO2 POC ABG pO2 ABG pO2 ABG HCO3 ABG O2 Saturation ABG Base Excess ABG Hemoglobin ABG Oxyhemoglobin ABG Potassium ABG Glucose Oxyhemoglobin Carboxyhemoglobin Sodium Potassium Chloride Carbon Dioxide BUN Creatinine Glucose POC Glucose 125 H 145 H 123 H Calcium Ferritin Total Bilirubin Alkaline Phosphatase Lactate Dehydrogenase Total Creatine Kinase CK-MB (CK-2) Rel Index Troponin T C-Reactive Protein Total Protein Albumin Prealbumin LDL Cholesterol Direct HDL Cholesterol Arterial Blood Glucose Arterial Blood Ionized Calcium Urine WBC (Auto) 04/07/20 04/08/20 04/08/20 23:22 05:40 11:29 WBC RBC Hgb Hct MCV MCH RDW Plt Count Lymph % (Auto) [place] % (Auto) Lymph # (Auto) [place] # (Auto) Seg Neutrophils % Seg Neuts % (Manual) Lymphocytes % (Manual) Monocytes % (Manual) Basophils % (Manual) Seg Neutrophils # Seg Neutrophils # Man Lymphocytes # (Manual) Monocytes # (Manual) Eosinophils # (Manual) Basophils # (Manual) PT INR D-Dimer ABG pH POC ABG pCO2 POC ABG pO2 ABG pO2 ABG HCO3 ABG O2 Saturation ABG Base Excess ABG Hemoglobin ABG Oxyhemoglobin ABG Potassium ABG Glucose Oxyhemoglobin Carboxyhemoglobin Sodium Potassium Chloride Carbon Dioxide BUN Creatinine Glucose POC Glucose 133 H 125 H 116 H Calcium Ferritin Total Bilirubin Alkaline Phosphatase Lactate Dehydrogenase Total Creatine Kinase CK-MB (CK-2) Rel Index Troponin T C-Reactive Protein Total Protein Albumin Prealbumin LDL Cholesterol Direct HDL Cholesterol Arterial Blood Glucose Arterial Blood Ionized Calcium Urine WBC (Auto) 04/08/20 04/09/20 04/09/20 17:43 05:47 12:22 WBC RBC Hgb Hct MCV MCH RDW Plt Count Lymph % (Auto) [place] % (Auto) Lymph # (Auto) [place] # (Auto) Seg Neutrophils % Seg Neuts % (Manual) Lymphocytes % (Manual) Monocytes % (Manual) Basophils % (Manual) Seg Neutrophils # Seg Neutrophils # Man Lymphocytes # (Manual) Monocytes # (Manual) Eosinophils # (Manual) Basophils # (Manual) PT INR D-Dimer ABG pH POC ABG pCO2 POC ABG pO2 ABG pO2 ABG HCO3 ABG O2 Saturation ABG Base Excess ABG Hemoglobin ABG Oxyhemoglobin ABG Potassium ABG Glucose Oxyhemoglobin Carboxyhemoglobin Sodium Potassium Chloride Carbon Dioxide BUN Creatinine Glucose POC Glucose 123 H 108 H 116 H Calcium Ferritin Total Bilirubin Alkaline Phosphatase Lactate Dehydrogenase Total Creatine Kinase CK-MB (CK-2) Rel Index Troponin T C-Reactive Protein Total Protein Albumin Prealbumin LDL Cholesterol Direct HDL Cholesterol Arterial Blood Glucose Arterial Blood Ionized Calcium Urine WBC (Auto) 04/09/20 04/09/20 04/10/20 17:24 23:52 06:10 WBC RBC Hgb Hct MCV MCH RDW Plt Count Lymph % (Auto) [place] % (Auto) Lymph # (Auto) [place] # (Auto) Seg Neutrophils % Seg Neuts % (Manual) Lymphocytes % (Manual) Monocytes % (Manual) Basophils % (Manual) Seg Neutrophils # Seg Neutrophils # Man Lymphocytes # (Manual) Monocytes # (Manual) Eosinophils # (Manual) Basophils # (Manual) PT INR D-Dimer ABG pH POC ABG pCO2 POC ABG pO2 ABG pO2 ABG HCO3 ABG O2 Saturation ABG Base Excess ABG Hemoglobin ABG Oxyhemoglobin ABG Potassium ABG Glucose Oxyhemoglobin Carboxyhemoglobin Sodium Potassium Chloride Carbon Dioxide BUN Creatinine Glucose POC Glucose 108 H 126 H 122 H Calcium Ferritin Total Bilirubin Alkaline Phosphatase Lactate Dehydrogenase Total Creatine Kinase CK-MB (CK-2) Rel Index Troponin T C-Reactive Protein Total Protein Albumin Prealbumin LDL Cholesterol Direct HDL Cholesterol Arterial Blood Glucose Arterial Blood Ionized Calcium Urine WBC (Auto) 04/10/20 04/10/20 04/10/20 11:27 18:11 23:24 WBC RBC Hgb Hct MCV MCH RDW Plt Count Lymph % (Auto) [place] % (Auto) Lymph # (Auto) [place] # (Auto) Seg Neutrophils % Seg Neuts % (Manual) Lymphocytes % (Manual) Monocytes % (Manual) Basophils % (Manual) Seg Neutrophils # Seg Neutrophils # Man Lymphocytes # (Manual) Monocytes # (Manual) Eosinophils # (Manual) Basophils # (Manual) PT INR D-Dimer ABG pH POC ABG pCO2 POC ABG pO2 ABG pO2 ABG HCO3 ABG O2 Saturation ABG Base Excess ABG Hemoglobin ABG Oxyhemoglobin ABG Potassium ABG Glucose Oxyhemoglobin Carboxyhemoglobin Sodium Potassium Chloride Carbon Dioxide BUN Creatinine Glucose POC Glucose 129 H 125 H 107 H Calcium Ferritin Total Bilirubin Alkaline Phosphatase Lactate Dehydrogenase Total Creatine Kinase CK-MB (CK-2) Rel Index Troponin T C-Reactive Protein Total Protein Albumin Prealbumin LDL Cholesterol Direct HDL Cholesterol Arterial Blood Glucose Arterial Blood Ionized Calcium Urine WBC (Auto) 04/11/20 04/11/20 04/11/20 05:28 11:46 23:49 WBC RBC Hgb Hct MCV MCH RDW Plt Count Lymph % (Auto) [place] % (Auto) Lymph # (Auto) [place] # (Auto) Seg Neutrophils % Seg Neuts % (Manual) Lymphocytes % (Manual) Monocytes % (Manual) Basophils % (Manual) Seg Neutrophils # Seg Neutrophils # Man Lymphocytes # (Manual) Monocytes # (Manual) Eosinophils # (Manual) Basophils # (Manual) PT INR D-Dimer ABG pH POC ABG pCO2 POC ABG pO2 ABG pO2 ABG HCO3 ABG O2 Saturation ABG Base Excess ABG Hemoglobin ABG Oxyhemoglobin ABG Potassium ABG Glucose Oxyhemoglobin Carboxyhemoglobin Sodium Potassium Chloride Carbon Dioxide BUN Creatinine Glucose POC Glucose 122 H 122 H 116 H Calcium Ferritin Total Bilirubin Alkaline Phosphatase Lactate Dehydrogenase Total Creatine Kinase CK-MB (CK-2) Rel Index Troponin T C-Reactive Protein Total Protein Albumin Prealbumin LDL Cholesterol Direct HDL Cholesterol Arterial Blood Glucose Arterial Blood Ionized Calcium Urine WBC (Auto) 04/12/20 04/12/20 04/12/20 09:07 09:07 11:39 WBC 13.1 H RBC 3.59 L Hgb 9.5 L Hct 29.8 L MCV 83 L MCH 26 L RDW 16.6 H Plt Count 591 H Lymph % (Auto) [place] % (Auto) Lymph # (Auto) [place] # (Auto) Seg Neutrophils % Seg Neuts % (Manual) 86.0 H Lymphocytes % (Manual) 7.0 L Monocytes % (Manual) Basophils % (Manual) Seg Neutrophils # Seg Neutrophils # Man 11.3 H Lymphocytes # (Manual) 0.9 L Monocytes # (Manual) Eosinophils # (Manual) Basophils # (Manual) PT INR D-Dimer ABG pH POC ABG pCO2 POC ABG pO2 ABG pO2 ABG HCO3 ABG O2 Saturation ABG Base Excess ABG Hemoglobin ABG Oxyhemoglobin ABG Potassium ABG Glucose Oxyhemoglobin Carboxyhemoglobin Sodium Potassium Chloride Carbon Dioxide 36 H BUN Creatinine < 0.2 L Glucose 132 H POC Glucose 136 H Calcium Ferritin Total Bilirubin Alkaline Phosphatase Lactate Dehydrogenase Total Creatine Kinase CK-MB (CK-2) Rel Index Troponin T C-Reactive Protein Total Protein Albumin 2.7 L Prealbumin LDL Cholesterol Direct HDL Cholesterol Arterial Blood Glucose Arterial Blood Ionized Calcium Urine WBC (Auto) 04/12/20 04/12/20 04/13/20 18:13 23:07 05:45 WBC RBC Hgb Hct MCV MCH RDW Plt Count Lymph % (Auto) [place] % (Auto) Lymph # (Auto) [place] # (Auto) Seg Neutrophils % Seg Neuts % (Manual) Lymphocytes % (Manual) Monocytes % (Manual) Basophils % (Manual) Seg Neutrophils # Seg Neutrophils # Man Lymphocytes # (Manual) Monocytes # (Manual) Eosinophils # (Manual) Basophils # (Manual) PT INR D-Dimer ABG pH POC ABG pCO2 POC ABG pO2 ABG pO2 ABG HCO3 ABG O2 Saturation ABG Base Excess ABG Hemoglobin ABG Oxyhemoglobin ABG Potassium ABG Glucose Oxyhemoglobin Carboxyhemoglobin Sodium Potassium Chloride Carbon Dioxide BUN Creatinine Glucose POC Glucose 107 H 106 H 125 H Calcium Ferritin Total Bilirubin Alkaline Phosphatase Lactate Dehydrogenase Total Creatine Kinase CK-MB (CK-2) Rel Index Troponin T C-Reactive Protein Total Protein Albumin Prealbumin LDL Cholesterol Direct HDL Cholesterol Arterial Blood Glucose Arterial Blood Ionized Calcium Urine WBC (Auto) 04/13/20 04/13/20 04/13/20 11:18 17:56 23:33 WBC RBC Hgb Hct MCV MCH RDW Plt Count Lymph % (Auto) [place] % (Auto) Lymph # (Auto) [place] # (Auto) Seg Neutrophils % Seg Neuts % (Manual) Lymphocytes % (Manual) Monocytes % (Manual) Basophils % (Manual) Seg Neutrophils # Seg Neutrophils # Man Lymphocytes # (Manual) Monocytes # (Manual) Eosinophils # (Manual) Basophils # (Manual) PT INR D-Dimer ABG pH POC ABG pCO2 POC ABG pO2 ABG pO2 ABG HCO3 ABG O2 Saturation ABG Base Excess ABG Hemoglobin ABG Oxyhemoglobin ABG Potassium ABG Glucose Oxyhemoglobin Carboxyhemoglobin Sodium Potassium Chloride Carbon Dioxide BUN Creatinine Glucose POC Glucose 133 H 110 H 114 H Calcium Ferritin Total Bilirubin Alkaline Phosphatase Lactate Dehydrogenase Total Creatine Kinase CK-MB (CK-2) Rel Index Troponin T C-Reactive Protein Total Protein Albumin Prealbumin LDL Cholesterol Direct HDL Cholesterol Arterial Blood Glucose Arterial Blood Ionized Calcium Urine WBC (Auto) 04/14/20 04/14/20 04/14/20 05:58 11:45 17:48 WBC RBC Hgb Hct MCV MCH RDW Plt Count Lymph % (Auto) [place] % (Auto) Lymph # (Auto) [place] # (Auto) Seg Neutrophils % Seg Neuts % (Manual) Lymphocytes % (Manual) Monocytes % (Manual) Basophils % (Manual) Seg Neutrophils # Seg Neutrophils # Man Lymphocytes # (Manual) Monocytes # (Manual) Eosinophils # (Manual) Basophils # (Manual) PT INR D-Dimer ABG pH POC ABG pCO2 POC ABG pO2 ABG pO2 ABG HCO3 ABG O2 Saturation ABG Base Excess ABG Hemoglobin ABG Oxyhemoglobin ABG Potassium ABG Glucose Oxyhemoglobin Carboxyhemoglobin Sodium Potassium Chloride Carbon Dioxide BUN Creatinine Glucose POC Glucose 115 H 122 H 124 H Calcium Ferritin Total Bilirubin Alkaline Phosphatase Lactate Dehydrogenase Total Creatine Kinase CK-MB (CK-2) Rel Index Troponin T C-Reactive Protein Total Protein Albumin Prealbumin LDL Cholesterol Direct HDL Cholesterol Arterial Blood Glucose Arterial Blood Ionized Calcium Urine WBC (Auto) 04/15/20 04/15/20 04/15/20 00:11 05:38 11:31 WBC RBC Hgb Hct MCV MCH RDW Plt Count Lymph % (Auto) [place] % (Auto) Lymph # (Auto) [place] # (Auto) Seg Neutrophils % Seg Neuts % (Manual) Lymphocytes % (Manual) Monocytes % (Manual) Basophils % (Manual) Seg Neutrophils # Seg Neutrophils # Man Lymphocytes # (Manual) Monocytes # (Manual) Eosinophils # (Manual) Basophils # (Manual) PT INR D-Dimer ABG pH POC ABG pCO2 POC ABG pO2 ABG pO2 ABG HCO3 ABG O2 Saturation ABG Base Excess ABG Hemoglobin ABG Oxyhemoglobin ABG Potassium ABG Glucose Oxyhemoglobin Carboxyhemoglobin Sodium Potassium Chloride Carbon Dioxide BUN Creatinine Glucose POC Glucose 120 H 109 H 123 H Calcium Ferritin Total Bilirubin Alkaline Phosphatase Lactate Dehydrogenase Total Creatine Kinase CK-MB (CK-2) Rel Index Troponin T C-Reactive Protein Total Protein Albumin Prealbumin LDL Cholesterol Direct HDL Cholesterol Arterial Blood Glucose Arterial Blood Ionized Calcium Urine WBC (Auto) 04/15/20 04/16/20 04/16/20 17:35 06:00 11:29 WBC RBC Hgb Hct MCV MCH RDW Plt Count Lymph % (Auto) [place] % (Auto) Lymph # (Auto) [place] # (Auto) Seg Neutrophils % Seg Neuts % (Manual) Lymphocytes % (Manual) Monocytes % (Manual) Basophils % (Manual) Seg Neutrophils # Seg Neutrophils # Man Lymphocytes # (Manual) Monocytes # (Manual) Eosinophils # (Manual) Basophils # (Manual) PT INR D-Dimer ABG pH POC ABG pCO2 POC ABG pO2 ABG pO2 ABG HCO3 ABG O2 Saturation ABG Base Excess ABG Hemoglobin ABG Oxyhemoglobin ABG Potassium ABG Glucose Oxyhemoglobin Carboxyhemoglobin Sodium Potassium Chloride Carbon Dioxide BUN Creatinine Glucose POC Glucose 111 H 142 H 108 H Calcium Ferritin Total Bilirubin Alkaline Phosphatase Lactate Dehydrogenase Total Creatine Kinase CK-MB (CK-2) Rel Index Troponin T C-Reactive Protein Total Protein Albumin Prealbumin LDL Cholesterol Direct HDL Cholesterol Arterial Blood Glucose Arterial Blood Ionized Calcium Urine WBC (Auto) 04/17/20 04/17/20 04/17/20 05:09 06:53 06:53 WBC 14.2 H RBC Hgb 10.1 L Hct 31.5 L MCV MCH 27 L RDW 17.2 H Plt Count 643 H Lymph % (Auto) [place] % (Auto) Lymph # (Auto) [place] # (Auto) Seg Neutrophils % Seg Neuts % (Manual) Lymphocytes % (Manual) Monocytes % (Manual) Basophils % (Manual) Seg Neutrophils # Seg Neutrophils # Man Lymphocytes # (Manual) Monocytes # (Manual) Eosinophils # (Manual) Basophils # (Manual) PT INR D-Dimer ABG pH POC ABG pCO2 POC ABG pO2 ABG pO2 ABG HCO3 ABG O2 Saturation ABG Base Excess ABG Hemoglobin ABG Oxyhemoglobin ABG Potassium ABG Glucose Oxyhemoglobin Carboxyhemoglobin Sodium Potassium Chloride 97.7 L Carbon Dioxide 38 H BUN Creatinine < 0.2 L Glucose 126 H POC Glucose 131 H Calcium Ferritin Total Bilirubin Alkaline Phosphatase Lactate Dehydrogenase Total Creatine Kinase CK-MB (CK-2) Rel Index Troponin T C-Reactive Protein Total Protein Albumin Prealbumin LDL Cholesterol Direct HDL Cholesterol Arterial Blood Glucose Arterial Blood Ionized Calcium Urine WBC (Auto) 04/17/20 04/18/20 04/18/20 11:21 00:23 04:01 WBC 15.3 H RBC Hgb 10.1 L Hct 31.9 L MCV 82 L MCH 26 L RDW 17.2 H Plt Count 665 H Lymph % (Auto) 12.9 L [place] % (Auto) Lymph # (Auto) [place] # (Auto) 1.1 H Seg Neutrophils % 78.0 H Seg Neuts % (Manual) Lymphocytes % (Manual) Monocytes % (Manual) Basophils % (Manual) Seg Neutrophils # 11.9 H Seg Neutrophils # Man Lymphocytes # (Manual) Monocytes # (Manual) Eosinophils # (Manual) Basophils # (Manual) PT INR D-Dimer ABG pH POC ABG pCO2 POC ABG pO2 ABG pO2 ABG HCO3 ABG O2 Saturation ABG Base Excess ABG Hemoglobin ABG Oxyhemoglobin ABG Potassium ABG Glucose Oxyhemoglobin Carboxyhemoglobin Sodium Potassium Chloride Carbon Dioxide BUN Creatinine Glucose POC Glucose 140 H 125 H Calcium Ferritin Total Bilirubin Alkaline Phosphatase Lactate Dehydrogenase Total Creatine Kinase CK-MB (CK-2) Rel Index Troponin T C-Reactive Protein Total Protein Albumin Prealbumin LDL Cholesterol Direct HDL Cholesterol Arterial Blood Glucose Arterial Blood Ionized Calcium Urine WBC (Auto) 04/18/20 04/18/20 04/18/20 04:01 11:29 17:30 WBC RBC Hgb Hct MCV MCH RDW Plt Count Lymph % (Auto) [place] % (Auto) Lymph # (Auto) [place] # (Auto) Seg Neutrophils % Seg Neuts % (Manual) Lymphocytes % (Manual) Monocytes % (Manual) Basophils % (Manual) Seg Neutrophils # Seg Neutrophils # Man Lymphocytes # (Manual) Monocytes # (Manual) Eosinophils # (Manual) Basophils # (Manual) PT INR D-Dimer ABG pH POC ABG pCO2 POC ABG pO2 ABG pO2 ABG HCO3 ABG O2 Saturation ABG Base Excess ABG Hemoglobin ABG Oxyhemoglobin ABG Potassium ABG Glucose Oxyhemoglobin Carboxyhemoglobin Sodium Potassium Chloride 97.0 L Carbon Dioxide 38 H BUN Creatinine < 0.2 L Glucose 117 H POC Glucose 136 H 107 H Calcium Ferritin Total Bilirubin Alkaline Phosphatase Lactate Dehydrogenase Total Creatine Kinase CK-MB (CK-2) Rel Index Troponin T C-Reactive Protein Total Protein Albumin Prealbumin LDL Cholesterol Direct HDL Cholesterol Arterial Blood Glucose Arterial Blood Ionized Calcium Urine WBC (Auto) 12/22/20 12/23/20 12/23/20 23:19 06:51 06:51 WBC 12.2 H RBC Hgb 9.8 L Hct 31.1 L MCV 82 L MCH 26 L RDW 17.2 H Plt Count 549 H Lymph % (Auto) 6.5 L [place] % (Auto) Lymph # (Auto) 0.8 L [place] # (Auto) Seg Neutrophils % 86.7 H Seg Neuts % (Manual) Lymphocytes % (Manual) Monocytes % (Manual) Basophils % (Manual) Seg Neutrophils # 10.6 H Seg Neutrophils # Man Lymphocytes # (Manual) Monocytes # (Manual) Eosinophils # (Manual) Basophils # (Manual) PT INR D-Dimer ABG pH POC ABG pCO2 POC ABG pO2 ABG pO2 ABG HCO3 ABG O2 Saturation ABG Base Excess ABG Hemoglobin ABG Oxyhemoglobin ABG Potassium ABG Glucose Oxyhemoglobin Carboxyhemoglobin Sodium Potassium Chloride 97.8 L Carbon Dioxide 38 H BUN Creatinine < 0.2 L Glucose 123 H POC Glucose 127 H Calcium Ferritin Total Bilirubin Alkaline Phosphatase Lactate Dehydrogenase Total Creatine Kinase CK-MB (CK-2) Rel Index Troponin T C-Reactive Protein Total Protein Albumin Prealbumin LDL Cholesterol Direct HDL Cholesterol Arterial Blood Glucose Arterial Blood Ionized Calcium Urine WBC (Auto) 04/19/20 04/19/20 04/20/20 13:41 18:33 05:56 WBC RBC Hgb Hct MCV MCH RDW Plt Count Lymph % (Auto) [place] % (Auto) Lymph # (Auto) [place] # (Auto) Seg Neutrophils % Seg Neuts % (Manual) Lymphocytes % (Manual) Monocytes % (Manual) Basophils % (Manual) Seg Neutrophils # Seg Neutrophils # Man Lymphocytes # (Manual) Monocytes # (Manual) Eosinophils # (Manual) Basophils # (Manual) PT INR D-Dimer ABG pH POC ABG pCO2 POC ABG pO2 ABG pO2 ABG HCO3 ABG O2 Saturation ABG Base Excess ABG Hemoglobin ABG Oxyhemoglobin ABG Potassium ABG Glucose Oxyhemoglobin Carboxyhemoglobin Sodium Potassium Chloride Carbon Dioxide BUN Creatinine Glucose POC Glucose 116 H 124 H 130 H Calcium Ferritin Total Bilirubin Alkaline Phosphatase Lactate Dehydrogenase Total Creatine Kinase CK-MB (CK-2) Rel Index Troponin T C-Reactive Protein Total Protein Albumin Prealbumin LDL Cholesterol Direct HDL Cholesterol Arterial Blood Glucose Arterial Blood Ionized Calcium Urine WBC (Auto) 04/20/20 04/20/20 04/20/20 06:28 06:28 11:46 WBC RBC Hgb 10.2 L Hct 31.5 L MCV 82 L MCH 27 L RDW 17.1 H Plt Count 546 H Lymph % (Auto) 10.0 L [place] % (Auto) 9.8 H Lymph # (Auto) 1.1 L [place] # (Auto) 1.1 H Seg Neutrophils % 78.4 H Seg Neuts % (Manual) Lymphocytes % (Manual) Monocytes % (Manual) Basophils % (Manual) Seg Neutrophils # 8.5 H Seg Neutrophils # Man Lymphocytes # (Manual) Monocytes # (Manual) Eosinophils # (Manual) Basophils # (Manual) PT INR D-Dimer ABG pH POC ABG pCO2 POC ABG pO2 ABG pO2 ABG HCO3 ABG O2 Saturation ABG Base Excess ABG Hemoglobin ABG Oxyhemoglobin ABG Potassium ABG Glucose Oxyhemoglobin Carboxyhemoglobin Sodium Potassium Chloride 97.0 L Carbon Dioxide 38 H BUN Creatinine < 0.2 L Glucose 138 H POC Glucose 130 H Calcium Ferritin Total Bilirubin Alkaline Phosphatase Lactate Dehydrogenase Total Creatine Kinase CK-MB (CK-2) Rel Index Troponin T C-Reactive Protein Total Protein Albumin Prealbumin LDL Cholesterol Direct HDL Cholesterol Arterial Blood Glucose Arterial Blood Ionized Calcium Urine WBC (Auto) 04/20/20 04/21/20 04/21/20 23:31 05:55 05:55 WBC RBC Hgb 10.0 L Hct 31.1 L MCV 82 L MCH 26 L RDW 17.0 H Plt Count 535 H Lymph % (Auto) [place] % (Auto) 9.2 H Lymph # (Auto) 1.1 L [place] # (Auto) Seg Neutrophils % 75.4 H Seg Neuts % (Manual) Lymphocytes % (Manual) Monocytes % (Manual) Basophils % (Manual) Seg Neutrophils # Seg Neutrophils # Man Lymphocytes # (Manual) Monocytes # (Manual) Eosinophils # (Manual) Basophils # (Manual) PT INR D-Dimer ABG pH POC ABG pCO2 POC ABG pO2 ABG pO2 ABG HCO3 ABG O2 Saturation ABG Base Excess ABG Hemoglobin ABG Oxyhemoglobin ABG Potassium ABG Glucose Oxyhemoglobin Carboxyhemoglobin Sodium Potassium Chloride 95.0 L Carbon Dioxide 34 H BUN Creatinine < 0.2 L Glucose 125 H POC Glucose 116 H Calcium Ferritin Total Bilirubin Alkaline Phosphatase Lactate Dehydrogenase Total Creatine Kinase CK-MB (CK-2) Rel Index Troponin T C-Reactive Protein Total Protein Albumin Prealbumin LDL Cholesterol Direct HDL Cholesterol Arterial Blood Glucose Arterial Blood Ionized Calcium Urine WBC (Auto) 04/22/20 04/22/20 04/22/20 00:01 07:45 07:45 WBC RBC Hgb 10.0 L Hct 30.7 L MCV 81 L MCH 27 L RDW 17.1 H Plt Count 490 H Lymph % (Auto) [place] % (Auto) Lymph # (Auto) [place] # (Auto) Seg Neutrophils % Seg Neuts % (Manual) 75.0 H Lymphocytes % (Manual) 11.0 L Monocytes % (Manual) 9.0 H Basophils % (Manual) Seg Neutrophils # Seg Neutrophils # Man Lymphocytes # (Manual) 0.8 L Monocytes # (Manual) Eosinophils # (Manual) Basophils # (Manual) PT INR D-Dimer ABG pH POC ABG pCO2 POC ABG pO2 ABG pO2 ABG HCO3 ABG O2 Saturation ABG Base Excess ABG Hemoglobin ABG Oxyhemoglobin ABG Potassium ABG Glucose Oxyhemoglobin Carboxyhemoglobin Sodium Potassium Chloride 96.3 L Carbon Dioxide 40 H BUN Creatinine < 0.2 L Glucose 109 H POC Glucose 110 H Calcium Ferritin Total Bilirubin Alkaline Phosphatase Lactate Dehydrogenase Total Creatine Kinase CK-MB (CK-2) Rel Index Troponin T C-Reactive Protein Total Protein Albumin Prealbumin LDL Cholesterol Direct HDL Cholesterol Arterial Blood Glucose Arterial Blood Ionized Calcium Urine WBC (Auto) 04/23/20 04/23/20 04/23/20 04:28 04:28 04:28 WBC RBC 3.64 L Hgb 9.7 L Hct 29.4 L MCV 81 L MCH 27 L RDW 17.2 H Plt Count 527 H Lymph % (Auto) [place] % (Auto) 8.9 H Lymph # (Auto) [place] # (Auto) Seg Neutrophils % Seg Neuts % (Manual) Lymphocytes % (Manual) Monocytes % (Manual) Basophils % (Manual) Seg Neutrophils # Seg Neutrophils # Man Lymphocytes # (Manual) Monocytes # (Manual) Eosinophils # (Manual) Basophils # (Manual) PT INR D-Dimer ABG pH POC ABG pCO2 POC ABG pO2 ABG pO2 ABG HCO3 ABG O2 Saturation ABG Base Excess ABG Hemoglobin ABG Oxyhemoglobin ABG Potassium ABG Glucose Oxyhemoglobin Carboxyhemoglobin Sodium Potassium Chloride 96.4 L Carbon Dioxide 32 H D BUN Creatinine < 0.2 L Glucose 134 H POC Glucose Calcium Ferritin Total Bilirubin Alkaline Phosphatase Lactate Dehydrogenase Total Creatine Kinase CK-MB (CK-2) Rel Index Troponin T 0.151 H* C-Reactive Protein Total Protein Albumin Prealbumin LDL Cholesterol Direct HDL Cholesterol 29 L Arterial Blood Glucose Arterial Blood Ionized Calcium Urine WBC (Auto) 04/23/20 04/23/20 04/24/20 06:03 23:41 05:28 WBC RBC 3.56 L Hgb 9.5 L Hct 28.9 L MCV 81 L MCH 27 L RDW 17.4 H Plt Count 462 H Lymph % (Auto) [place] % (Auto) Lymph # (Auto) [place] # (Auto) Seg Neutrophils % Seg Neuts % (Manual) 80.0 H Lymphocytes % (Manual) Monocytes % (Manual) Basophils % (Manual) Seg Neutrophils # Seg Neutrophils # Man Lymphocytes # (Manual) Monocytes # (Manual) Eosinophils # (Manual) Basophils # (Manual) PT INR D-Dimer ABG pH POC ABG pCO2 POC ABG pO2 ABG pO2 ABG HCO3 ABG O2 Saturation ABG Base Excess ABG Hemoglobin ABG Oxyhemoglobin ABG Potassium ABG Glucose Oxyhemoglobin Carboxyhemoglobin Sodium Potassium Chloride Carbon Dioxide BUN Creatinine Glucose POC Glucose 132 H 117 H Calcium Ferritin Total Bilirubin Alkaline Phosphatase Lactate Dehydrogenase Total Creatine Kinase CK-MB (CK-2) Rel Index Troponin T C-Reactive Protein Total Protein Albumin Prealbumin LDL Cholesterol Direct HDL Cholesterol Arterial Blood Glucose Arterial Blood Ionized Calcium Urine WBC (Auto) 04/24/20 04/24/20 04/24/20 05:28 05:28 05:33 WBC RBC Hgb Hct MCV MCH RDW Plt Count Lymph % (Auto) [place] % (Auto) Lymph # (Auto) [place] # (Auto) Seg Neutrophils % Seg Neuts % (Manual) Lymphocytes % (Manual) Monocytes % (Manual) Basophils % (Manual) Seg Neutrophils # Seg Neutrophils # Man Lymphocytes # (Manual) Monocytes # (Manual) Eosinophils # (Manual) Basophils # (Manual) PT INR D-Dimer ABG pH POC ABG pCO2 POC ABG pO2 ABG pO2 ABG HCO3 ABG O2 Saturation ABG Base Excess ABG Hemoglobin ABG Oxyhemoglobin ABG Potassium ABG Glucose Oxyhemoglobin Carboxyhemoglobin Sodium Potassium Chloride 96.1 L Carbon Dioxide 40 H D BUN Creatinine < 0.2 L Glucose 115 H POC Glucose 109 H Calcium Ferritin Total Bilirubin Alkaline Phosphatase Lactate Dehydrogenase Total Creatine Kinase CK-MB (CK-2) Rel Index Troponin T 0.181 H* C-Reactive Protein Total Protein Albumin Prealbumin LDL Cholesterol Direct HDL Cholesterol Arterial Blood Glucose Arterial Blood Ionized Calcium Urine WBC (Auto) 04/24/20 04/24/20 04/25/20 11:17 18:23 00:12 WBC RBC Hgb Hct MCV MCH RDW Plt Count Lymph % (Auto) [place] % (Auto) Lymph # (Auto) [place] # (Auto) Seg Neutrophils % Seg Neuts % (Manual) Lymphocytes % (Manual) Monocytes % (Manual) Basophils % (Manual) Seg Neutrophils # Seg Neutrophils # Man Lymphocytes # (Manual) Monocytes # (Manual) Eosinophils # (Manual) Basophils # (Manual) PT INR D-Dimer ABG pH POC ABG pCO2 POC ABG pO2 ABG pO2 ABG HCO3 ABG O2 Saturation ABG Base Excess ABG Hemoglobin ABG Oxyhemoglobin ABG Potassium ABG Glucose Oxyhemoglobin Carboxyhemoglobin Sodium Potassium Chloride Carbon Dioxide BUN Creatinine Glucose POC Glucose 117 H 109 H 113 H Calcium Ferritin Total Bilirubin Alkaline Phosphatase Lactate Dehydrogenase Total Creatine Kinase CK-MB (CK-2) Rel Index Troponin T C-Reactive Protein Total Protein Albumin Prealbumin LDL Cholesterol Direct HDL Cholesterol Arterial Blood Glucose Arterial Blood Ionized Calcium Urine WBC (Auto) 04/25/20 04/25/20 04/25/20 06:34 06:34 11:28 WBC 11.7 H RBC Hgb 10.0 L Hct 31.7 L MCV 82 L MCH 26 L RDW 17.5 H Plt Count 564 H Lymph % (Auto) [place] % (Auto) Lymph # (Auto) [place] # (Auto) Seg Neutrophils % Seg Neuts % (Manual) 78.0 H Lymphocytes % (Manual) 10.0 L Monocytes % (Manual) 9.0 H Basophils % (Manual) Seg Neutrophils # Seg Neutrophils # Man 9.1 H Lymphocytes # (Manual) Monocytes # (Manual) 1.1 H Eosinophils # (Manual) Basophils # (Manual) PT INR D-Dimer ABG pH POC ABG pCO2 POC ABG pO2 ABG pO2 ABG HCO3 ABG O2 Saturation ABG Base Excess ABG Hemoglobin ABG Oxyhemoglobin ABG Potassium ABG Glucose Oxyhemoglobin Carboxyhemoglobin Sodium Potassium Chloride Carbon Dioxide 39 H BUN Creatinine < 0.2 L Glucose 103 H POC Glucose 112 H Calcium Ferritin Total Bilirubin Alkaline Phosphatase Lactate Dehydrogenase Total Creatine Kinase CK-MB (CK-2) Rel Index Troponin T C-Reactive Protein Total Protein Albumin Prealbumin LDL Cholesterol Direct HDL Cholesterol Arterial Blood Glucose Arterial Blood Ionized Calcium Urine WBC (Auto) 04/27/20 04/27/20 04/27/20 11:48 17:08 23:31 WBC RBC Hgb Hct MCV MCH RDW Plt Count Lymph % (Auto) [place] % (Auto) Lymph # (Auto) [place] # (Auto) Seg Neutrophils % Seg Neuts % (Manual) Lymphocytes % (Manual) Monocytes % (Manual) Basophils % (Manual) Seg Neutrophils # Seg Neutrophils # Man Lymphocytes # (Manual) Monocytes # (Manual) Eosinophils # (Manual) Basophils # (Manual) PT INR D-Dimer ABG pH POC ABG pCO2 POC ABG pO2 ABG pO2 ABG HCO3 ABG O2 Saturation ABG Base Excess ABG Hemoglobin ABG Oxyhemoglobin ABG Potassium ABG Glucose Oxyhemoglobin Carboxyhemoglobin Sodium Potassium Chloride Carbon Dioxide BUN Creatinine Glucose POC Glucose 124 H 118 H 122 H Calcium Ferritin Total Bilirubin Alkaline Phosphatase Lactate Dehydrogenase Total Creatine Kinase CK-MB (CK-2) Rel Index Troponin T C-Reactive Protein Total Protein Albumin Prealbumin LDL Cholesterol Direct HDL Cholesterol Arterial Blood Glucose Arterial Blood Ionized Calcium Urine WBC (Auto) 04/28/20 04/29/20 04/29/20 05:42 00:14 05:30 WBC RBC Hgb Hct MCV MCH RDW Plt Count Lymph % (Auto) [place] % (Auto) Lymph # (Auto) [place] # (Auto) Seg Neutrophils % Seg Neuts % (Manual) Lymphocytes % (Manual) Monocytes % (Manual) Basophils % (Manual) Seg Neutrophils # Seg Neutrophils # Man Lymphocytes # (Manual) Monocytes # (Manual) Eosinophils # (Manual) Basophils # (Manual) PT INR D-Dimer ABG pH POC ABG pCO2 POC ABG pO2 ABG pO2 ABG HCO3 ABG O2 Saturation ABG Base Excess ABG Hemoglobin ABG Oxyhemoglobin ABG Potassium ABG Glucose Oxyhemoglobin Carboxyhemoglobin Sodium Potassium Chloride Carbon Dioxide BUN Creatinine Glucose POC Glucose 122 H 115 H 123 H Calcium Ferritin Total Bilirubin Alkaline Phosphatase Lactate Dehydrogenase Total Creatine Kinase CK-MB (CK-2) Rel Index Troponin T C-Reactive Protein Total Protein Albumin Prealbumin LDL Cholesterol Direct HDL Cholesterol Arterial Blood Glucose Arterial Blood Ionized Calcium Urine WBC (Auto) 04/30/20 05/01/20 05/01/20 00:29 05:39 12:30 WBC RBC Hgb Hct MCV MCH RDW Plt Count Lymph % (Auto) [place] % (Auto) Lymph # (Auto) [place] # (Auto) Seg Neutrophils % Seg Neuts % (Manual) Lymphocytes % (Manual) Monocytes % (Manual) Basophils % (Manual) Seg Neutrophils # Seg Neutrophils # Man Lymphocytes # (Manual) Monocytes # (Manual) Eosinophils # (Manual) Basophils # (Manual) PT INR D-Dimer ABG pH POC ABG pCO2 POC ABG pO2 ABG pO2 ABG HCO3 ABG O2 Saturation ABG Base Excess ABG Hemoglobin ABG Oxyhemoglobin ABG Potassium ABG Glucose Oxyhemoglobin Carboxyhemoglobin Sodium Potassium Chloride Carbon Dioxide BUN Creatinine Glucose POC Glucose 106 H 109 H 108 H Calcium Ferritin Total Bilirubin Alkaline Phosphatase Lactate Dehydrogenase Total Creatine Kinase CK-MB (CK-2) Rel Index Troponin T C-Reactive Protein Total Protein Albumin Prealbumin LDL Cholesterol Direct HDL Cholesterol Arterial Blood Glucose Arterial Blood Ionized Calcium Urine WBC (Auto) 05/01/20 05/03/20 05/03/20 23:35 05:09 11:36 WBC RBC Hgb Hct MCV MCH RDW Plt Count Lymph % (Auto) [place] % (Auto) Lymph # (Auto) [place] # (Auto) Seg Neutrophils % Seg Neuts % (Manual) Lymphocytes % (Manual) Monocytes % (Manual) Basophils % (Manual) Seg Neutrophils # Seg Neutrophils # Man Lymphocytes # (Manual) Monocytes # (Manual) Eosinophils # (Manual) Basophils # (Manual) PT INR D-Dimer ABG pH POC ABG pCO2 POC ABG pO2 ABG pO2 ABG HCO3 ABG O2 Saturation ABG Base Excess ABG Hemoglobin ABG Oxyhemoglobin ABG Potassium ABG Glucose Oxyhemoglobin Carboxyhemoglobin Sodium Potassium Chloride Carbon Dioxide BUN Creatinine Glucose POC Glucose 116 H 117 H 116 H Calcium Ferritin Total Bilirubin Alkaline Phosphatase Lactate Dehydrogenase Total Creatine Kinase CK-MB (CK-2) Rel Index Troponin T C-Reactive Protein Total Protein Albumin Prealbumin LDL Cholesterol Direct HDL Cholesterol Arterial Blood Glucose Arterial Blood Ionized Calcium Urine WBC (Auto) 05/03/20 05/03/20 05/03/20 14:06 14:06 23:39 WBC 12.5 H RBC Hgb 10.0 L Hct 31.2 L MCV 80 L MCH 26 L RDW 17.6 H Plt Count 488 H Lymph % (Auto) [place] % (Auto) Lymph # (Auto) [place] # (Auto) Seg Neutrophils % Seg Neuts % (Manual) Lymphocytes % (Manual) Monocytes % (Manual) Basophils % (Manual) Seg Neutrophils # Seg Neutrophils # Man Lymphocytes # (Manual) Monocytes # (Manual) Eosinophils # (Manual) Basophils # (Manual) PT INR D-Dimer ABG pH POC ABG pCO2 POC ABG pO2 ABG pO2 ABG HCO3 ABG O2 Saturation ABG Base Excess ABG Hemoglobin ABG Oxyhemoglobin ABG Potassium ABG Glucose Oxyhemoglobin Carboxyhemoglobin Sodium Potassium Chloride 95.4 L Carbon Dioxide 40 H BUN Creatinine < 0.2 L Glucose 121 H POC Glucose 107 H Calcium Ferritin Total Bilirubin Alkaline Phosphatase Lactate Dehydrogenase Total Creatine Kinase CK-MB (CK-2) Rel Index Troponin T C-Reactive Protein Total Protein Albumin Prealbumin LDL Cholesterol Direct HDL Cholesterol Arterial Blood Glucose Arterial Blood Ionized Calcium Urine WBC (Auto) 05/04/20 05/04/20 05/04/20 11:31 16:57 23:18 WBC RBC Hgb Hct MCV MCH RDW Plt Count Lymph % (Auto) [place] % (Auto) Lymph # (Auto) [place] # (Auto) Seg Neutrophils % Seg Neuts % (Manual) Lymphocytes % (Manual) Monocytes % (Manual) Basophils % (Manual) Seg Neutrophils # Seg Neutrophils # Man Lymphocytes # (Manual) Monocytes # (Manual) Eosinophils # (Manual) Basophils # (Manual) PT INR D-Dimer ABG pH POC ABG pCO2 POC ABG pO2 ABG pO2 ABG HCO3 ABG O2 Saturation ABG Base Excess ABG Hemoglobin ABG Oxyhemoglobin ABG Potassium ABG Glucose Oxyhemoglobin Carboxyhemoglobin Sodium Potassium Chloride Carbon Dioxide BUN Creatinine Glucose POC Glucose 113 H 126 H 126 H Calcium Ferritin Total Bilirubin Alkaline Phosphatase Lactate Dehydrogenase Total Creatine Kinase CK-MB (CK-2) Rel Index Troponin T C-Reactive Protein Total Protein Albumin Prealbumin LDL Cholesterol Direct HDL Cholesterol Arterial Blood Glucose Arterial Blood Ionized Calcium Urine WBC (Auto) 05/05/20 05/05/20 05:32 11:11 WBC RBC Hgb Hct MCV MCH RDW Plt Count Lymph % (Auto) [place] % (Auto) Lymph # (Auto) [place] # (Auto) Seg Neutrophils % Seg Neuts % (Manual) Lymphocytes % (Manual) Monocytes % (Manual) Basophils % (Manual) Seg Neutrophils # Seg Neutrophils # Man Lymphocytes # (Manual) Monocytes # (Manual) Eosinophils # (Manual) Basophils # (Manual) PT INR D-Dimer ABG pH POC ABG pCO2 POC ABG pO2 ABG pO2 ABG HCO3 ABG O2 Saturation ABG Base Excess ABG Hemoglobin ABG Oxyhemoglobin ABG Potassium ABG Glucose Oxyhemoglobin Carboxyhemoglobin Sodium Potassium Chloride Carbon Dioxide BUN Creatinine Glucose POC Glucose 109 H 124 H Calcium Ferritin Total Bilirubin Alkaline Phosphatase Lactate Dehydrogenase Total Creatine Kinase CK-MB (CK-2) Rel Index Troponin T C-Reactive Protein Total Protein Albumin Prealbumin LDL Cholesterol Direct HDL Cholesterol Arterial Blood Glucose Arterial Blood Ionized Calcium Urine WBC (Auto) Allied health notes reviewed: nursing
--- NOTE | 2020-05-05 17:55 | Progress Note ---
Assessment and Plan --Acute hypoxic hypercapnic respiratory failure; Intubated on mechanical ventilation. Etiology secondary to sepsis, ALS, multifocal pneumonia (Covid negative). S/p trach placement 03/07/20 --Status post cardiac arrest on 02/25, cardiac hernandez now stable --Dysphagia, status post PEG placement for tube feeding --ALS; Chronic Continue to provide supportive care --Elevated D-dimers; CTA chest, lower extremity venous Doppler both are negative Lovenox for DVT prophylaxis --Bilateral pneumonia; probably community-acquired Completed treatment ID recommendations appreciated --Sepsis secondary to pneumonia s/p empiric antibiotic --Elevated troponin; Serial cardiac enzymes, serial EKGs Echocardiogram, cardiology consult if needed --Hypernatremia Trend sodium Free water via feeding tube --Abdominal distention due to bladder outlet obstruction, resolved CT abdomen showed bladder outlet obstruction, urology consulted s/p drake placement by urology on 03/09 --Hypotension possibly from septic shock and bladder outlet obstruction improved following placing drake --Hypernatremia due to hypovolumia, resolved free water with TF --Constipation; Patient already received Dulcolax suppository and Colace Received milk of magnesia, with relief --DVT prophylaxis; Lovenox Brief history: 59-year-old male patient with significant past medical history of ALS, presented to ED with worsening shortness of breath since the morning [employer]UDIT S[employer]IOR [employer]OCI[employer]. Patient was on a trilogy machine for breathing 18/11. EMS arrived, patient had O2 sats in the 80s. EMS attempted to place patient on their CPAP machine, however patient did not tolerate. Patient was admitted to the ICU with diagnosis of acute hypoxic respiratory failure and placed on BiPAP. Patient initially tolerated but later deteriorated with respiratory status. CTA chest showed no PE but significant for bilateral pneumonia. Doppler ultrasound also negative for DVT. COVID-19 test ordered and negative. Due to persistent hypoxia and asystolic/V. fib cardiac arrest, patient was intubated on 02/26/2020 at 1500. Patient now on mechanical ventilation in the ICU s/p trach placement and now unable to wean off from the mechanical ventilation. Patient now status post PEG placement for tube feeding. Patient most likely need long-term placement -LTAC versus SNF Daily course: 02/25/2020. CTA of the chest reveals no PE but does illustrate the bilateral pneumonia. Doppler ultrasound also negative for DVT. Blood cultures are pe nding. Await COVID-19 testing. Patient currently requiring BiPAP IPAP 24/EPAP 6 with FiO2 of 25%. Continue O2 and BiPAP as clinically indicated. ID and pulmonary consulted. 02/26/2020. Blood cultures are negative x48 hours and Covid testing negative as well. Continue antibiotics per ID recommendations for community-acquired bilateral pneumonia. Cardiology consultation for elevated troponin. Check echocardiogram. 02/27/2020. Events of yesterday noted with asystole following V. fib arrest. Patient currently on AC mode rate 20, tidal volume 400, FiO2 50% and a PEEP of 6. Follow-up echocardiogram for elevated troponin. Cardiology suspects NSTEMI Type 2 in the setting of acute resp failure. Chest CTA and BLE Dopplers neg. we will discontinue Decadron given the Covid PCR is negative. 02/28/2020. I spoke with the sister Felisa Eli who is the power of deputy attorney general regarding advanced directives and she instructed me that she would like to continue with aggressive care at this time. I informed her of the guarded prognosis and high mortality/morbidity and she voiced understanding. Patient currently with AC mode ventilation rate 18, tidal volume 400, FiO2 40% and a PEEP of 6. Continue antibiotics for pneumonia. ID previously consulted. Also consult neurology with regards to ALS. 02/29/2020; patient is intubated and on CPAP patient is alert and oriented. Patient has ALS. Dr. Álvarez spoke with his sister and she wants aggressive care. Continue antibiotics for pneumonia. Neurology consulted for ALS. Prognosis poor 03/01/2020; patient is intubated and on CPAP, patient is alert and oriented. I spoke with his 2 sisters about the management plan. 03/02/2020; patient is intubated and on CPAP. Patient was alert and oriented. I spoke with Dr. mohr and he thinks patient may need mechanical ventilation, likely his disease progressed. Dr. Flowers did debridement this morning. 03/03/2020; patient is intubated and on CPAP, patient was on trilogy and BiPAP at home. Patient has ALS. on spontaneous breathing trial. Patient is alert and oriented but quadriplegic. Patient has severe bilateral pneumonia and is on cefepime and Vanco, ID is following. Patient has sacral decubitus ulcer and debridement was done by Dr. Flowers and there is no osteomyelitis. 03/05. Patient still on broad-spectrum antibiotics. Status post sacral decubitus ulcer debridements-no osteomyelitis. Patient is on AC 25/400/30% PEEP 5. No blood gas results today. 03/06. Plan for tracheostomy by surgery. Still remains intubated. Labs reviewed-sodium 150. Started on free water 200 every 8hr. trend sodium. 03/07: s/p trach placement today, patient placed back on mechanical ventilation with trach. Plan to resume tube feeding with NG tube. Continue to monitor vitals, monitor BMP. 03/08: Patient noted to have distended abdomen with low urinary output. Obtain bladder scan rule out urine retention, UA and urine culture, continue to follow clinically. 03/09: Patient noted to have low blood pressure with SBP as low as 70s. Ordered for 500 mils normal saline bolus. CT abdomen showed bladder outlet obstruction, urology consulted. 03/10: placed on drake by urology o/n, improved urine outpt. cont to monitor BMP. resuded TF - cont free water with TF. wean off from vent as tolerated. 03/11: Vitals stable. cont TF, wean off from vent as tolerated. start on 1/2 NS for hypernatremia - follow BMP 03/12: wean off vent as tolerated, plan for speech eval, cont Tf for now, cont iv fluid 03/13: unable to wean off from vent, unable to do speech therapy eval. will need PEG tube, cont supportive care for now, cont NG tube feeding 03/14: consulted GI for PEg placemnet, cont supportive care. remains on vent at night 03/15: Discussed with GI, plan for PEG tube placement possibly tomorrow. Continue supportive care and wean off from vent as tolerated. Hold Lovenox dose tonight. 03/16: family didnot consent for PEG placement yesterday. I spoke with the megan rodriguez today and she is now agreeable for PEG tube. I explained the necessity of the procedure with RN to the patient also and he nodded started on tube feeding, for the procedure. will cont supportive care. planned for PEG tube placement tomorrow. 03/17: s/p PEG placement today, patient tolerated well, cont supportive care 03/18: Started on tube feeding with new PEG tube, continue to wean off vent as tolerated 03/19: cont to monitor with supportive care, wean off vent as tolerated 03/20: Continue to wean off vent as tolerated -but failing weaning trial. Still requiring vent support at night. Currently on PEG tube for tube feed. 03/21. Pt with PSV trials with FiO@ 30%, PEEP 6, PS 10. Currently on PEG tube for tube feed. 03/22/2020. Continue PSV trials per pulmonary. Continue bronchodilators. Patient tolerating tube feedings. Continue Robinul for secretion control. 03/23/2020. Continue PSV trials per pulmonary. Continue bronchodilators. Continue Scopolamine and Robinul for secretion control. Trach care/airway management. Mobility protocols for pressure ulcer prophylaxis. LTAC evaluation per case management 03/24/2020. Continue PSV trials with current settings pressure support 10, PEEP 6 and FiO2 30%. Continue bronchodilators/nebulizer. Continue Scopolamine and Robinul for secretion control. Trach care/airway management. Mobility protocols for pressure ulcer prophylaxis. LTAC evaluation per case management 03/25/2020. Pulmonary to proceed with T-piece trials today. Continue bronchodilators/nebulizer. Continue Scopolamine and Robinul for secretion control. Trach care/airway management. Mobility protocols for pressure ulcer prophylaxis. 03/26/2020. Patient currently with PSV 10/6 at FiO2 of 30%. Continue weaning and T-piece trials per protocol. Continue bronchodilators/nebulizer. Continue Scopolamine and Robinul for secretion control. Trach care/airway management. Mobility protocols for pressure ulcer prophylaxis. Continue tube feeding with aspiration precautions. 03/27/2020. Patient currently with PSV 10/6 at FiO2 of 30%. Continue weaning and T-piece trials per protocol. Continue bronchodilators/nebulizer. Continue Scopolamine and Robinul for secretion control. Trach care/airway management. Mobility protocols for pressure ulcer prophylaxis. Continue tube feeding with aspiration precautions. 03/28. Had temp 100.7F. He has been off antibiotics. Will send blood culture, ua, urine culture and chest xray. Had chest pain overnight and trop was elevated as well. Cardiology to evaluate 03/29. Has back pain due to position. He mentions his chest pain is positional. Has no other complaints. Still on mechanical ventilation 03/30. No chest pain today. Labs reviewed. Discussed chest pain with cardiology and team advised no further work up at this time. Can follow up with cardiology in the office after hospitalization 03/31. Lidocaine patch for lower back pain. 04/01. Discharge planning underway. CM notes reviewed. Discussed with daughter 04/02. CM trying to arrange discharge. Continue PSV trials. Discussed with patients significant other 04/04/2020; CM is working for discharge arrangement. Continue PSV trials. 04/05/2020; patient was seen and evaluated this morning and no change from baseline. Continue with PSV trials. Follow with fitter welder for discharge planning. 04/06/2020;patient was seen and evaluated this morning and no change from baseline. Continue with PSV trials. Follow with fitter welder for discharge planning. 04/07/2020; patient was seen and evaluated this morning and no change from baseline. Continue with PSV trials. Follow with fitter welder for discharge planning. 04/08/2020; patient is vent dependent. Discharge is per fitter welder. 04/09/2020 patient is vent dependent, possible LTAC placement 04/10/2020; tracheostomy on vent, vent dependent pending LTAC placement 04/11/2020; clinically no change, tracheostomy on ventilatory support, wean as tolerated, awaiting placement 04/12/2020; remains on ventilatory support, unable to wean, patient wants to see a speech therapist for sound box However we cannot try that as long as he is on ventilatory support, once he is weaned off vent We will consult speech therapist, plan of care reviewed with the patient and his nurse 04/14/2020; clinically no change, on ventilatory support, complains of constipation, milk of magnesia Closely monitor the patient and adjust the management as needed 04/15/2020; patient has some oral thrush on the tongue, will give Magic mouthwash/nystatin swish and spit Wean off vent as tolerated 04/16 patient is alert and oriented, unable to comprehend what he is trying to tell but appears to complain of some pain, no acute events overnight, all interdisciplinary notes reviewed. Waiting for LTAC versus [facility] facility placement 04/17/2020. Continue supportive care with mechanical ventilation. Patient currently on AC mode rate 10, tidal volume 400 FiO2 30% with a PEEP of 6. Discharge planning per case management. 04/18/2020. Patient remains on mechanical ventilation AC mode rate 10, tidal volume 400, FiO2 30% and PEEP of 6. Continue spontaneous breathing trials as tolerated. Previously, patient was considered for discharge home with skilled staff providing care for 12 hours 7 days/week. Continue discussed with case management discharge planning. 04/19/20. Patient remains on mechanical ventilation AC mode rate 10, tidal volume 400, FiO2 30% and PEEP of 6. Continue spontaneous breathing trials as tolerated. 04/20/2020. Patient remains on mechanical ventilation AC mode rate 10, tidal volume 400, FiO2 30% and PEEP of 6. Continue spontaneous breathing trials as tolerated. 04/21/2020. Patient remains on mechanical ventilation AC mode rate 10, tidal volume 400, FiO2 30% and PEEP of 6. Continue tracheostomy care, secretion control and airway management. Continue spontaneous breathing trials as tolerated. 04/22/2020. Patient remains on mechanical ventilation AC mode rate 10, tidal volume 400, FiO2 30% and PEEP of 6. Continue tracheostomy care, secretion control and airway management. Continue spontaneous breathing trials as tolera milana. 04/23/2020. Patient on mechanical ventilation AC mode rate 18, tidal volume 450, FiO2 30% and PEEP of 6. Continue tracheostomy care, secretion control and airway management. Continue spontaneous breathing trials as tolerated. Continue Robinul and scopolamine for secretions. Continue baclofen. 04/24/2020. Patient remains on AC mode ventilation rate 10, tidal volume 400, FiO2 30% and PEEP of 6. Continue tracheostomy care, secretion control and airway management. Continue spontaneous breathing trials as tolerated. Continue Robinul and scopolamine for secretions. Continue baclofen. Continue Xanax for anxiety and Ambien for sleep. Await case management follow-up with regards to discharge planning. 04/25/2020. Patient remains on AC mode ventilation rate 10, tidal volume 400, FiO2 30% and PEEP of 6. Continue tracheostomy care, secretion control and airway management. Continue spontaneous breathing trials as tolerated. Continue Robinul and scopolamine for secretions. Continue baclofen. Continue Xanax for anxiety and Ambien for sleep. Await case management follow-up with regards to discharge planning. 04/26. Patient remains on AC mode ventilation rate 10, tidal volume 400, FiO2 30% and PEEP of 6. Continue tracheostomy care, secretion control and airway management. Continue spontaneous breathing trials as tolerated. Continue Robinul and scopolamine for secretions. Continue baclofen. Continue Xanax for anxiety and Ambien for sleep. Await case management follow-up with regards to discharge planning. 04/27. Patient remains on AC mode ventilation rate 10, tidal volume 400, FiO2 30% and PEEP of 6. Continue tracheostomy care, secretion control and airway management. Continue spontaneous breathing trials as tolerated. Continue Robinul and scopolamine for secretions. Continue baclofen. Continue Xanax for anxiety and Ambien for sleep. Await case management follow-up with regards to discharge planning. 04/28/20 no acute events overnight, remains vent dependent, cardiology and pulmonary notes reviewed 04/29 remains intubated via tracheostomy, no acute events 04/30 no acute events overnight, cardiology note reviewed, remains vent dependent, discharge planning per case management 05/01 stable. cardiology and pulmonary notes reviewed. D/C acu-checks 05/02 - todate: Clinically stable, CM working on placement. Continue supportive care. Subjective Date of service: 05/05/20 Principal diagnosis: Ac on Ch Hypercapnic & hypoxemic Resp Failure; Severe Sepsis; Jamar PNA; ALS Interval history: Patient seen and examined Remains on trach tube Discussed with RN at the bedside Vitals reviewed -BP stable Tolerating tube feeding with PEG tube Objective - Exam Narrative Exam: GENERAL: Awake. Intubated with trach tube HEAD: No signs of head trauma. EYES: Pupils are equal. Extraocular motions intact. EARS: Hearing grossly intact. MOUTH: Oropharynx is normal. NECK: No adenopathy, no JVD. CHEST: Coarse breath sounds bilaterally CARDIAC: Regular rate and rhythm. S1 and S2, without murmurs, gallops, or rubs. VASCULAR: No Edema. Peripheral pulses normal and equal in all extremities. ABDOMEN: Soft, non tender and nondistended. Bowel Sounds normal. PEG in place NEUROLOGIC EXAM: Awake, paraplegic SKIN: No obvious lesions - Constitutional Vitals: Vital Signs - 12hr 05/05/20 05/05/20 05/05/20 06:00 07:00 08:00 Temperature 98.3 F Pulse Rate 108 H 118 H 114 H Respiratory 13 14 14 Rate Blood Pressure 123/87 122/80 126/80 O2 Sat by Pulse 96 95 Oximetry O2 Sat by Pulse 95 Oximetry [ Assessment] 05/05/20 05/05/20 05/05/20 08:59 10:52 11:24 Temperature Pulse Rate 119 H Respiratory 19 Rate Blood Pressure 120/85 O2 Sat by Pulse 95 Oximetry O2 Sat by Pulse Oximetry [ Assessment] 05/05/20 05/05/20 05/05/20 11:30 11:54 12:00 Temperature 98.4 F Pulse Rate 108 H Respiratory 21 16 Rate Blood Pressure 109/70 O2 Sat by Pulse 98 Oximetry O2 Sat by Pulse Oximetry [ Assessment] 05/05/20 16:30 Temperature Pulse Rate 119 H Respiratory 18 Rate Blood Pressure 113/77 O2 Sat by Pulse 98 Oximetry O2 Sat by Pulse 98 Oximetry [ Assessment] - Labs CBC & Chem 7: 05/07/20 04:43 05/03/20 14:06 Labs: Abnormal lab results 05/04/20 05/05/20 05/05/20 Range/Units 23:18 05:32 11:11 POC Glucose 126 H 109 H 124 H (70-105) mg/dL HEART Score - HEART Score Troponin: Troponin T 0.181 ng/mL (0.00-0.029) H* 04/24/20 05:28
[2020-05-05] MEDS: ACETAMINOPHEN 325 MG TAB PO PRN (23:22)
[2020-05-05] MEDS: SENNOSIDES 8.6 MG TAB PO SCH (23:24)
[2020-05-05] MEDS: ENOXAPARIN 40 MG/0.4 ML INJ SUB-Q SCH (23:25)
[2020-05-05] MEDS: ZOLPIDEM 5 MG TAB PO PRN (23:29)
[2020-05-06] MEDS: ALPRAZolam 0.5 MG TAB PO PRN ×3 (05:32→22:21)
[2020-05-06] MEDS: GLYCOPYRROLATE 1 MG TAB PO SCH ×3 (08:40→22:20)
[2020-05-06] MEDS: MAGIC MOUTHWASH 30ML PO SCH ×3 (08:40→22:20)
[2020-05-06] MEDS: MORPHINE 2 MG/1 ML INJ IV PRN ×3 (10:23→22:21)
[2020-05-06] MEDS: LIDOCAINE 5% 1 EACH PATCH TD SCH (10:25)
[2020-05-06] MEDS: METOPROLOL TARTRATE 25 MG TAB PO SCH ×2 (10:26→22:21)
[2020-05-06] MEDS: TAMSULOSIN 0.4 MG CAP PO SCH (10:26)
[2020-05-06] MEDS: ASPIRIN EC 81 MG TAB PO SCH (10:26)
[2020-05-06] MEDS: LANSOPRAZOLE 30 MG SOLUTAB FEEDTUBE SCH (10:26)
[2020-05-06] MEDS: PREGABALIN 75 MG CAP PO SCH ×2 (10:27→22:20)
[2020-05-06] MEDS: BACLOFEN 10 MG TAB PO SCH ×2 (10:27→22:20)
[2020-05-06] MEDS: DOCUSATE SODIUM 100 MG/10 ML ORAL LIQD FEEDTUBE SCH ×3 (10:27→22:24)
[2020-05-06] MEDS: SODIUM HYPOCHLORITE, DAKIN'S 1/2 STRENGTH (0.25%) 473 ML TOPICAL SOLN TP SCH ×2 (10:31→22:00)
--- NOTE | 2020-05-06 14:43 | Progress Note ---
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 Respiratory Failure Severe Sepsis with Shock Bilateral Pneumonia (Possible aspiration) History of ALS on Trilogy Oropharyngeal Dysphagia PUI-COVID Acute toxic metabolic encephalopathy Elevated D-dimer Elevated troponin possibly type 2 ischemia - no new issues, discharge planning still ongoing for home ventilator - remains ventilator dependent; refusing SBT's at time and not tolerating when tried - continue care as below; - continue home meds re: chronic pain (Baclofen, Lyrica) - continue daily SBT's as tolerated; t-piece trial attempts as tolerated (PSV if fails) - repeat CXR prn +/- bronchoscopy for mucus plugging / large volume atelectasis - continue psychoactive meds for anxiolysis - continue Robinul & scopolamine for secretion control - prn electrolytes and optimize K+ & Mg 2+ for best respiratory muscle function - wound care per RN/WCN - wean supplemental oxygen for target O2 sat's > 90% acutely - bronchodilators with pulmonary hygiene per RT - VAP bundle addressed - continue lung protective strategies - continue bronchodilators with pulmonary hygiene per RT - wean per pulmonary driven protocols otherwise - sedation prn for target RASS 0 to -1 - s/p empiric antiinfectives per ID rec's (Rocephin and Zithromax) - s/p COVID-19 isolation (Airborne & Contact) - s/p Dexamethasone - enteral nutrition at goal rate as tolerated - accuchecks with glycemic control per SSI (While critically ill target blood glucose of 140-180 mg/dL; avoid hypoglycemia) - avoid nephrotoxins, renally dose all medications - avoid benzodiazepine's, reduce the possibility of delirium - prn analgesia per CPOT score - Maintenance of sleep-wake cycle, avoid delirium - aspiration precautions - G.I. & VTE prophylaxis - PT/OT/ROM exercises - mobility protocols for pressure ulcer prophylaxis - Monitor hemodynamics closely - continue other care per attending / other consultants - discharge planning ongoing concurrently .... Re-evaluate in am & prn CONDITION: CRITICAL PROGNOSIS: GUARDED CODE STATUS: FULL CODE The high probability of a clinically significant, sudden or life-threatening deterioration of the [respiratory, cardiovascular & neurologic] system(s) required my full and direct attention, intervention and personal management. The aggregate critical care time was [31] minutes without overlap. Time includes spent on; [x] Data Review and interpretation [x] Patient assessment and monitoring of vital signs [x] Documentation [x] Medication orders and management Subjective Date of service: 05/06/20 Principal diagnosis: Ac on Ch Hypercapnic & hypoxemic Resp Failure; Severe Sepsis; Jamar PNA; ALS Interval history: Patient is seen today for: Acute on Chronic Hypercapnic & hypoxemic Respiratory Failure; Severe Sepsis with Shock; Bilateral Pneumonia (Possible aspiration); History of ALS on Trilogy; PUI-COVID; Acute toxic metabolic encephalopathy Seen and examined at bedside; 24hour events reviewed; nursing and respiratory care staff consulted; no adverse overnight events reported to me; resting in bed; remains on MVS; no N/V/F/C; discharge planning still ongoing Objective Vital Signs - 12hr 05/06/20 05/06/20 05/06/20 03:00 04:00 04:57 Temperature 98.2 F Pulse Rate 108 H 106 H 120 H Pulse Rate [ 111 H From Monitor] Respiratory 13 12 Rate Blood Pressure 98/64 113/65 94/58 O2 Sat by Pulse 94 96 98 Oximetry O2 Sat by Pulse Oximetry [ Assessment] 05/06/20 05/06/20 05/06/20 05:00 06:00 07:00 Temperature Pulse Rate 120 H 107 H 97 H Pulse Rate [ From Monitor] Respiratory 20 11 L 12 Rate Blood Pressure 114/86 100/58 111/69 O2 Sat by Pulse 96 97 96 Oximetry O2 Sat by Pulse Oximetry [ Assessment] 05/06/20 05/06/20 05/06/20 08:00 09:00 09:36 Temperature 98.5 F Pulse Rate 109 H 103 H Pulse Rate [ From Monitor] Respiratory 14 11 L Rate Blood Pressure 121/74 101/61 O2 Sat by Pulse 97 96 99 Oximetry O2 Sat by Pulse 99 Oximetry [ Assessment] 05/06/20 05/06/20 05/06/20 10:00 10:26 11:00 Temperature Pulse Rate 116 H 109 H 108 H Pulse Rate [ From Monitor] Respiratory 19 14 Rate Blood Pressure 101/68 101/68 103/74 O2 Sat by Pulse 98 98 Oximetry O2 Sat by Pulse Oximetry [ Assessment] 05/06/20 05/06/20 05/06/20 12:00 13:00 14:00 Temperature 98.7 F Pulse Rate 97 H 109 H 108 H Pulse Rate [ 111 H From Monitor] Respiratory 14 22 13 Rate Blood Pressure 105/75 94/78 98/77 O2 Sat by Pulse 98 98 96 Oximetry O2 Sat by Pulse Oximetry [ Assessment] Constitutional: no acute distress, other (thin middle aged male with normal respiratory effort at rest on MVS) Eyes: non-icteric ENT: oropharynx moist, other (S/P Tracheostomy) Neck: supple, no lymphadenopathy, no JVD Effort: mildly labored Ascultation: Bilateral: diminished breath sounds, rhonchi (scant in bases) Percussion: Bilateral: not dull Cardiovascular: regular rate and rhythm, other (S1,S2, no murmurs) Gastrointestinal: normoactive bowel sounds, soft, non-tender, non-distended, other (+ distended but non tender suprapubis) Integumentary: normal, decubitus ulcer (sacral / gluteal) Extremities: no cyanosis, no edema, pulses normal, other (atrophic looking limbs) Neurologic: pupils equal and round, other (motor strength in extremities 1-2/5, awake, alert, mouths words to make needs known) Psychiatric: mood appropriate, affect normal CBC and BMP: 05/07/20 04:43 05/03/20 14:06 ABG, PT/INR, D-dimer: ABG ABG pH 7.371 (7.320-7.450) 03/08/20 12:34 POC ABG pCO2 63.1 mmHg (32.0-48.0) H 03/08/20 12:34 ABG pCO2 60.1 mm Hg 03/06/20 04:34 POC ABG pO2 90.5 mmHg (83-108) 03/08/20 12:34 ABG pO2 88.6 mm Hg (80.0-90.0) 03/06/20 04:34 POC ABG HCO3 35.7 03/08/20 12:34 ABG O2 Saturation 97.0 % (95.0-99.0) 03/06/20 04:34 PT/INR, D-dimer PT 15.6 Sec. (12.2-14.9) H 02/24/20 09:19 INR 1.21 (0.87-1.13) H 02/24/20 09:19 D-Dimer 1311.96 ng/mlDDU (0-234) H 10/29/20 09:19 Abnormal lab findings: Abnormal Labs 02/24/20 02/24/20 02/24/20 09:19 09:19 09:19 WBC 20.2 H RBC 5.05 H Hgb Hct MCV MCH RDW 15.3 H Plt Count Lymph % (Auto) [place] % (Auto) Lymph # (Auto) [place] # (Auto) Seg Neutrophils % Seg Neuts % (Manual) 86.0 H Lymphocytes % (Manual) 1.0 L Monocytes % (Manual) Basophils % (Manual) Seg Neutrophils # Seg Neutrophils # Man 17.4 H Lymphocytes # (Manual) 0.2 L Monocytes # (Manual) Eosinophils # (Manual) Basophils # (Manual) PT 15.6 H INR 1.21 H D-Dimer 1311.96 H ABG pH POC ABG pCO2 POC ABG pO2 ABG pO2 ABG HCO3 ABG O2 Saturation ABG Base Excess ABG Hemoglobin ABG Oxyhemoglobin ABG Potassium ABG Glucose Oxyhemoglobin Carboxyhemoglobin Sodium 135 L Potassium 3.2 L Chloride 92.2 L Carbon Dioxide BUN 6 L Creatinine < 0.2 L Glucose 124 H POC Glucose Calcium Ferritin Total Bilirubin 2.30 H Alkaline Phosphatase 132 H Lactate Dehydrogenase Total Creatine Kinase CK-MB (CK-2) Rel Index Troponin T 0.080 H C-Reactive Protein Total Protein Albumin 3.6 L Prealbumin LDL Cholesterol Direct 41 L HDL Cholesterol Arterial Blood Glucose Arterial Blood Ionized Calcium Urine WBC (Auto) 02/24/20 02/24/20 02/24/20 09:19 09:58 10:01 WBC RBC Hgb Hct MCV MCH RDW Plt Count Lymph % (Auto) [place] % (Auto) Lymph # (Auto) [place] # (Auto) Seg Neutrophils % Seg Neuts % (Manual) Lymphocytes % (Manual) Monocytes % (Manual) Basophils % (Manual) Seg Neutrophils # Seg Neutrophils # Man Lymphocytes # (Manual) Monocytes # (Manual) Eosinophils # (Manual) Basophils # (Manual) PT INR D-Dimer ABG pH 7.176 L* POC ABG pCO2 POC ABG pO2 ABG pO2 91.2 H ABG HCO3 ABG O2 Saturation ABG Base Excess -4.6 L ABG Hemoglobin ABG Oxyhemoglobin ABG Potassium ABG Glucose Oxyhemoglobin 92.6 L Carboxyhemoglobin Sodium Potassium Chloride Carbon Dioxide BUN Creatinine Glucose POC Glucose Calcium Ferritin 1715.0 H Total Bilirubin Alkaline Phosphatase Lactate Dehydrogenase 303 H Total Creatine Kinase CK-MB (CK-2) Rel Index Troponin T C-Reactive Protein 26.10 H Total Protein Albumin Prealbumin LDL Cholesterol Direct HDL Cholesterol Arterial Blood Glucose Arterial Blood Ionized Calcium Urine WBC (Auto) 02/24/20 02/24/20 02/24/20 11:52 13:45 19:35 WBC RBC Hgb Hct MCV MCH RDW Plt Count Lymph % (Auto) [place] % (Auto) Lymph # (Auto) [place] # (Auto) Seg Neutrophils % Seg Neuts % (Manual) Lymphocytes % (Manual) Monocytes % (Manual) Basophils % (Manual) Seg Neutrophils # Seg Neutrophils # Man Lymphocytes # (Manual) Monocytes # (Manual) Eosinophils # (Manual) Basophils # (Manual) PT INR D-Dimer ABG pH 7.051 L* 7.300 L POC ABG pCO2 POC ABG pO2 ABG pO2 94.7 H 75.1 L ABG HCO3 18.0 L ABG O2 Saturation 93.5 L ABG Base Excess -6.8 L -7.8 L ABG Hemoglobin 13.2 L 11.9 L ABG Oxyhemoglobin ABG Potassium ABG Glucose Oxyhemoglobin 91.0 L 92.7 L Carboxyhemoglobin Sodium Potassium Chloride Carbon Dioxide BUN Creatinine Glucose POC Glucose Calcium Ferritin Total Bilirubin Alkaline Phosphatase Lactate Dehydrogenase Total Creatine Kinase CK-MB (CK-2) Rel Index Troponin T 0.034 H D C-Reactive Protein Total Protein Albumin Prealbumin LDL Cholesterol Direct HDL Cholesterol Arterial Blood Glucose Arterial Blood Ionized Calcium Urine WBC (Auto) 02/25/20 02/25/20 02/25/20 04:00 04:00 12:26 WBC 22.9 H RBC Hgb Hct MCV 83 L MCH 27 L RDW Plt Count 468 H Lymph % (Auto) [place] % (Auto) Lymph # (Auto) [place] # (Auto) Seg Neutrophils % Seg Neuts % (Manual) 89.0 H Lymphocytes % (Manual) 7.0 L Monocytes % (Manual) Basophils % (Manual) Seg Neutrophils # Seg Neutrophils # Man 20.4 H Lymphocytes # (Manual) Monocytes # (Manual) Eosinophils # (Manual) Basophils # (Manual) PT INR D-Dimer ABG pH POC ABG pCO2 POC ABG pO2 ABG pO2 ABG HCO3 ABG O2 Saturation ABG Base Excess ABG Hemoglobin ABG Oxyhemoglobin ABG Potassium 2.6 L ABG Glucose 142 H Oxyhemoglobin Carboxyhemoglobin Sodium Potassium 3.2 L Chloride Carbon Dioxide 18 L BUN Creatinine 0.2 L Glucose 114 H POC Glucose Calcium Ferritin Total Bilirubin Alkaline Phosphatase Lactate Dehydrogenase Total Creatine Kinase CK-MB (CK-2) Rel Index Troponin T C-Reactive Protein Total Protein Albumin 3.5 L Prealbumin LDL Cholesterol Direct HDL Cholesterol Arterial Blood Glucose 142 H Arterial Blood Ionized Calcium Urine WBC (Auto) 02/26/20 02/26/20 02/26/20 15:58 17:00 23:43 WBC RBC Hgb Hct MCV MCH RDW Plt Count Lymph % (Auto) [place] % (Auto) Lymph # (Auto) [place] # (Auto) Seg Neutrophils % Seg Neuts % (Manual) Lymphocytes % (Manual) Monocytes % (Manual) Basophils % (Manual) Seg Neutrophils # Seg Neutrophils # Man Lymphocytes # (Manual) Monocytes # (Manual) Eosinophils # (Manual) Basophils # (Manual) PT INR D-Dimer ABG pH 7.502 H POC ABG pCO2 POC ABG pO2 213.6 H ABG pO2 ABG HCO3 ABG O2 Saturation ABG Base Excess ABG Hemoglobin ABG Oxyhemoglobin 99.2 H ABG Potassium 2.9 L ABG Glucose 160 H Oxyhemoglobin Carboxyhemoglobin 0.4 L Sodium Potassium Chloride Carbon Dioxide BUN Creatinine Glucose POC Glucose 189 H 120 H Calcium Ferritin Total Bilirubin Alkaline Phosphatase Lactate Dehydrogenase Total Creatine Kinase CK-MB (CK-2) Rel Index Troponin T C-Reactive Protein Total Protein Albumin Prealbumin LDL Cholesterol Direct HDL Cholesterol Arterial Blood Glucose 160 H Arterial Blood Ionized Calcium 4.5 L Urine WBC (Auto) 02/27/20 02/27/20 02/27/20 05:00 07:04 17:45 WBC RBC Hgb Hct MCV MCH RDW Plt Count Lymph % (Auto) [place] % (Auto) Lymph # (Auto) [place] # (Auto) Seg Neutrophils % Seg Neuts % (Manual) Lymphocytes % (Manual) Monocytes % (Manual) Basophils % (Manual) Seg Neutrophils # Seg Neutrophils # Man Lymphocytes # (Manual) Monocytes # (Manual) Eosinophils # (Manual) Basophils # (Manual) PT INR D-Dimer ABG pH 7.524 H POC ABG pCO2 POC ABG pO2 ABG pO2 ABG HCO3 ABG O2 Saturation ABG Base Excess ABG Hemoglobin ABG Oxyhemoglobin ABG Potassium 3.0 L ABG Glucose 143 H Oxyhemoglobin Carboxyhemoglobin Sodium Potassium Chloride Carbon Dioxide BUN Creatinine Glucose POC Glucose 154 H 175 H Calcium Ferritin Total Bilirubin Alkaline Phosphatase Lactate Dehydrogenase Total Creatine Kinase CK-MB (CK-2) Rel Index Troponin T C-Reactive Protein Total Protein Albumin Prealbumin LDL Cholesterol Direct HDL Cholesterol Arterial Blood Glucose 143 H Arterial Blood Ionized Calcium Urine WBC (Auto) 02/27/20 02/28/20 02/28/20 Unknown 00:21 04:15 WBC 18.7 H RBC Hgb Hct MCV MCH RDW Plt Count Lymph % (Auto) 8.7 L [place] % (Auto) Lymph # (Auto) [place] # (Auto) 1.2 H Seg Neutrophils % 84.6 H Seg Neuts % (Manual) Lymphocytes % (Manual) Monocytes % (Manual) Basophils % (Manual) Seg Neutrophils # 15.9 H Seg Neutrophils # Man Lymphocytes # (Manual) Monocytes # (Manual) Eosinophils # (Manual) Basophils # (Manual) PT INR D-Dimer ABG pH POC ABG pCO2 POC ABG pO2 ABG pO2 ABG HCO3 ABG O2 Saturation ABG Base Excess ABG Hemoglobin ABG Oxyhemoglobin ABG Potassium ABG Glucose Oxyhemoglobin Carboxyhemoglobin Sodium Potassium 2.9 L* Chloride Carbon Dioxide 33 H D BUN Creatinine < 0.2 L Glucose 157 H POC Glucose 134 H Calcium Ferritin Total Bilirubin Alkaline Phosphatase Lactate Dehydrogenase Total Creatine Kinase CK-MB (CK-2) Rel Index Troponin T C-Reactive Protein Total Protein Albumin Prealbumin LDL Cholesterol Direct HDL Cholesterol Arterial Blood Glucose Arterial Blood Ionized Calcium Urine WBC (Auto) 02/28/20 02/28/20 02/28/20 04:15 05:16 05:39 WBC RBC Hgb Hct MCV MCH RDW Plt Count Lymph % (Auto) [place] % (Auto) Lymph # (Auto) [place] # (Auto) Seg Neutrophils % Seg Neuts % (Manual) Lymphocytes % (Manual) Monocytes % (Manual) Basophils % (Manual) Seg Neutrophils # Seg Neutrophils # Man Lymphocytes # (Manual) Monocytes # (Manual) Eosinophils # (Manual) Basophils # (Manual) PT INR D-Dimer ABG pH POC ABG pCO2 POC ABG pO2 ABG pO2 142.9 H ABG HCO3 34.1 H ABG O2 Saturation ABG Base Excess 8.3 H ABG Hemoglobin ABG Oxyhemoglobin ABG Potassium ABG Glucose Oxyhemoglobin Carboxyhemoglobin Sodium 151 H Potassium Chloride Carbon Dioxide 32 H BUN Creatinine 0.2 L Glucose 167 H POC Glucose 138 H Calcium Ferritin Total Bilirubin Alkaline Phosphatase Lactate Dehydrogenase Total Creatine Kinase CK-MB (CK-2) Rel Index Troponin T C-Reactive Protein Total Protein Albumin Prealbumin LDL Cholesterol Direct HDL Cholesterol Arterial Blood Glucose Arterial Blood Ionized Calcium Urine WBC (Auto) 02/28/20 02/28/20 02/28/20 11:05 11:33 12:54 WBC RBC Hgb Hct MCV MCH RDW Plt Count Lymph % (Auto) [place] % (Auto) Lymph # (Auto) [place] # (Auto) Seg Neutrophils % Seg Neuts % (Manual) Lymphocytes % (Manual) Monocytes % (Manual) Basophils % (Manual) Seg Neutrophils # Seg Neutrophils # Man Lymphocytes # (Manual) Monocytes # (Manual) Eosinophils # (Manual) Basophils # (Manual) PT INR D-Dimer ABG pH POC ABG pCO2 POC ABG pO2 ABG pO2 ABG HCO3 ABG O2 Saturation ABG Base Excess ABG Hemoglobin ABG Oxyhemoglobin ABG Potassium ABG Glucose Oxyhemoglobin Carboxyhemoglobin Sodium Potassium Chloride Carbon Dioxide BUN Creatinine Glucose POC Glucose 160 H Calcium Ferritin Total Bilirubin Alkaline Phosphatase Lactate Dehydrogenase Total Creatine Kinase CK-MB (CK-2) Rel Index Troponin T C-Reactive Protein 4.70 H Total Protein Albumin Prealbumin 0.090 L LDL Cholesterol Direct HDL Cholesterol Arterial Blood Glucose Arterial Blood Ionized Calcium Urine WBC (Auto) 02/28/20 02/29/20 02/29/20 17:34 00:44 04:05 WBC 19.6 H RBC Hgb Hct MCV MCH 27 L RDW 15.4 H Plt Count Lymph % (Auto) [place] % (Auto) Lymph # (Auto) [place] # (Auto) Seg Neutrophils % Seg Neuts % (Manual) 86.0 H Lymphocytes % (Manual) 7.0 L Monocytes % (Manual) Basophils % (Manual) Seg Neutrophils # Seg Neutrophils # Man 16.9 H Lymphocytes # (Manual) Monocytes # (Manual) 1.2 H Eosinophils # (Manual) Basophils # (Manual) PT INR D-Dimer ABG pH POC ABG pCO2 POC ABG pO2 ABG pO2 ABG HCO3 ABG O2 Saturation ABG Base Excess ABG Hemoglobin ABG Oxyhemoglobin ABG Potassium ABG Glucose Oxyhemoglobin Carboxyhemoglobin Sodium Potassium Chloride Carbon Dioxide BUN Creatinine Glucose POC Glucose 136 H 156 H Calcium Ferritin Total Bilirubin Alkaline Phosphatase Lactate Dehydrogenase Total Creatine Kinase CK-MB (CK-2) Rel Index Troponin T C-Reactive Protein Total Protein Albumin Prealbumin LDL Cholesterol Direct HDL Cholesterol Arterial Blood Glucose Arterial Blood Ionized Calcium Urine WBC (Auto) 02/29/20 02/29/20 02/29/20 04:05 05:14 05:33 WBC RBC Hgb Hct MCV MCH RDW Plt Count Lymph % (Auto) [place] % (Auto) Lymph # (Auto) [place] # (Auto) Seg Neutrophils % Seg Neuts % (Manual) Lymphocytes % (Manual) Monocytes % (Manual) Basophils % (Manual) Seg Neutrophils # Seg Neutrophils # Man Lymphocytes # (Manual) Monocytes # (Manual) Eosinophils # (Manual) Basophils # (Manual) PT INR D-Dimer ABG pH POC ABG pCO2 54.3 H POC ABG pO2 124.8 H ABG pO2 ABG HCO3 ABG O2 Saturation ABG Base Excess ABG Hemoglobin ABG Oxyhemoglobin ABG Potassium ABG Glucose 185 H Oxyhemoglobin Carboxyhemoglobin Sodium 148 H Potassium Chloride Carbon Dioxide 33 H BUN Creatinine < 0.2 L Glucose 173 H POC Glucose 152 H Calcium Ferritin Total Bilirubin Alkaline Phosphatase Lactate Dehydrogenase Total Creatine Kinase CK-MB (CK-2) Rel Index Troponin T C-Reactive Protein Total Protein Albumin Prealbumin LDL Cholesterol Direct HDL Cholesterol Arterial Blood Glucose 185 H Arterial Blood Ionized Calcium Urine WBC (Auto) 03/01/20 03/01/20 03/01/20 00:00 03:45 04:33 WBC 23.1 H RBC Hgb Hct MCV MCH 27 L RDW 15.3 H Plt Count Lymph % (Auto) [place] % (Auto) Lymph # (Auto) [place] # (Auto) Seg Neutrophils % Seg Neuts % (Manual) 92.0 H Lymphocytes % (Manual) 6.0 L Monocytes % (Manual) Basophils % (Manual) Seg Neutrophils # Seg Neutrophils # Man 21.3 H Lymphocytes # (Manual) Monocytes # (Manual) Eosinophils # (Manual) 0.5 H Basophils # (Manual) PT INR D-Dimer ABG pH 7.492 H POC ABG pCO2 POC ABG pO2 ABG pO2 157.1 H ABG HCO3 32.3 H ABG O2 Saturation ABG Base Excess 8.1 H ABG Hemoglobin 13.2 L ABG Oxyhemoglobin ABG Potassium ABG Glucose Oxyhemoglobin Carboxyhemoglobin Sodium Potassium Chloride Carbon Dioxide BUN Creatinine Glucose POC Glucose 109 H Calcium Ferritin Total Bilirubin Alkaline Phosphatase Lactate Dehydrogenase Total Creatine Kinase CK-MB (CK-2) Rel Index Troponin T C-Reactive Protein Total Protein Albumin Prealbumin LDL Cholesterol Direct HDL Cholesterol Arterial Blood Glucose Arterial Blood Ionized Calcium Urine WBC (Auto) 03/01/20 03/01/20 03/01/20 04:33 05:29 12:32 WBC RBC Hgb Hct MCV MCH RDW Plt Count Lymph % (Auto) [place] % (Auto) Lymph # (Auto) [place] # (Auto) Seg Neutrophils % Seg Neuts % (Manual) Lymphocytes % (Manual) Monocytes % (Manual) Basophils % (Manual) Seg Neutrophils # Seg Neutrophils # Man Lymphocytes # (Manual) Monocytes # (Manual) Eosinophils # (Manual) Basophils # (Manual) PT INR D-Dimer ABG pH POC ABG pCO2 POC ABG pO2 ABG pO2 ABG HCO3 ABG O2 Saturation ABG Base Excess ABG Hemoglobin ABG Oxyhemoglobin ABG Potassium ABG Glucose Oxyhemoglobin Carboxyhemoglobin Sodium 146 H Potassium Chloride Carbon Dioxide 32 H BUN Creatinine < 0.2 L Glucose 120 H POC Glucose 120 H 128 H Calcium Ferritin Total Bilirubin Alkaline Phosphatase Lactate Dehydrogenase Total Creatine Kinase CK-MB (CK-2) Rel Index Troponin T C-Reactive Protein Total Protein Albumin Prealbumin LDL Cholesterol Direct HDL Cholesterol Arterial Blood Glucose Arterial Blood Ionized Calcium Urine WBC (Auto) 03/01/20 03/01/20 03/02/20 17:38 23:46 06:13 WBC RBC Hgb Hct MCV MCH RDW Plt Count Lymph % (Auto) [place] % (Auto) Lymph # (Auto) [place] # (Auto) Seg Neutrophils % Seg Neuts % (Manual) Lymphocytes % (Manual) Monocytes % (Manual) Basophils % (Manual) Seg Neutrophils # Seg Neutrophils # Man Lymphocytes # (Manual) Monocytes # (Manual) Eosinophils # (Manual) Basophils # (Manual) PT INR D-Dimer ABG pH POC ABG pCO2 POC ABG pO2 ABG pO2 ABG HCO3 ABG O2 Saturation ABG Base Excess ABG Hemoglobin ABG Oxyhemoglobin ABG Potassium ABG Glucose Oxyhemoglobin Carboxyhemoglobin Sodium Potassium Chloride Carbon Dioxide BUN Creatinine Glucose POC Glucose 114 H 121 H 120 H Calcium Ferritin Total Bilirubin Alkaline Phosphatase Lactate Dehydrogenase Total Creatine Kinase CK-MB (CK-2) Rel Index Troponin T C-Reactive Protein Total Protein Albumin Prealbumin LDL Cholesterol Direct HDL Cholesterol Arterial Blood Glucose Arterial Blood Ionized Calcium Urine WBC (Auto) 11/05/20 11/05/20 11/06/20 09:47 09:47 10:21 WBC 23.6 H RBC Hgb Hct MCV MCH RDW 15.3 H Plt Count 494 H Lymph % (Auto) [place] % (Auto) Lymph # (Auto) [place] # (Auto) Seg Neutrophils % Seg Neuts % (Manual) 85.0 H Lymphocytes % (Manual) 6.0 L Monocytes % (Manual) Basophils % (Manual) Seg Neutrophils # Seg Neutrophils # Man 20.1 H Lymphocytes # (Manual) Monocytes # (Manual) 1.7 H Eosinophils # (Manual) Basophils # (Manual) PT INR D-Dimer ABG pH POC ABG pCO2 POC ABG pO2 ABG pO2 ABG HCO3 ABG O2 Saturation ABG Base Excess ABG Hemoglobin ABG Oxyhemoglobin ABG Potassium 3.3 L ABG Glucose 158 H Oxyhemoglobin Carboxyhemoglobin Sodium Potassium Chloride Carbon Dioxide BUN Creatinine < 0.2 L Glucose 177 H POC Glucose Calcium Ferritin Total Bilirubin Alkaline Phosphatase Lactate Dehydrogenase Total Creatine Kinase CK-MB (CK-2) Rel Index Troponin T C-Reactive Protein Total Protein Albumin Prealbumin LDL Cholesterol Direct HDL Cholesterol Arterial Blood Glucose 158 H Arterial Blood Ionized Calcium Urine WBC (Auto) 03/03/20 03/04/20 03/04/20 21:30 00:00 12:23 WBC RBC Hgb Hct MCV MCH RDW Plt Count Lymph % (Auto) [place] % (Auto) Lymph # (Auto) [place] # (Auto) Seg Neutrophils % Seg Neuts % (Manual) Lymphocytes % (Manual) Monocytes % (Manual) Basophils % (Manual) Seg Neutrophils # Seg Neutrophils # Man Lymphocytes # (Manual) Monocytes # (Manual) Eosinophils # (Manual) Basophils # (Manual) PT INR D-Dimer ABG pH 7.328 L POC ABG pCO2 POC ABG pO2 ABG pO2 68.4 L ABG HCO3 35.0 H ABG O2 Saturation 93.9 L ABG Base Excess 6.8 H ABG Hemoglobin 12.7 L ABG Oxyhemoglobin ABG Potassium ABG Glucose Oxyhemoglobin 91.9 L Carboxyhemoglobin Sodium Potassium Chloride Carbon Dioxide BUN Creatinine Glucose POC Glucose 187 H 163 H Calcium Ferritin Total Bilirubin Alkaline Phosphatase Lactate Dehydrogenase Total Creatine Kinase CK-MB (CK-2) Rel Index Troponin T C-Reactive Protein Total Protein Albumin Prealbumin LDL Cholesterol Direct HDL Cholesterol Arterial Blood Glucose Arterial Blood Ionized Calcium Urine WBC (Auto) 03/04/20 03/04/20 03/05/20 18:15 21:30 06:02 WBC RBC Hgb Hct MCV MCH RDW Plt Count Lymph % (Auto) [place] % (Auto) Lymph # (Auto) [place] # (Auto) Seg Neutrophils % Seg Neuts % (Manual) Lymphocytes % (Manual) Monocytes % (Manual) Basophils % (Manual) Seg Neutrophils # Seg Neutrophils # Man Lymphocytes # (Manual) Monocytes # (Manual) Eosinophils # (Manual) Basophils # (Manual) PT INR D-Dimer ABG pH 7.297 L POC ABG pCO2 POC ABG pO2 ABG pO2 ABG HCO3 41.0 H ABG O2 Saturation ABG Base Excess 11.0 H ABG Hemoglobin 13.1 L ABG Oxyhemoglobin ABG Potassium ABG Glucose Oxyhemoglobin 94.5 L Carboxyhemoglobin Sodium Potassium Chloride Carbon Dioxide BUN Creatinine Glucose POC Glucose 192 H 127 H Calcium Ferritin Total Bilirubin Alkaline Phosphatase Lactate Dehydrogenase Total Creatine Kinase CK-MB (CK-2) Rel Index Troponin T C-Reactive Protein Total Protein Albumin Prealbumin LDL Cholesterol Direct HDL Cholesterol Arterial Blood Glucose Arterial Blood Ionized Calcium Urine WBC (Auto) 03/05/20 03/05/20 03/06/20 12:09 16:42 00:24 WBC RBC Hgb Hct MCV MCH RDW Plt Count Lymph % (Auto) [place] % (Auto) Lymph # (Auto) [place] # (Auto) Seg Neutrophils % Seg Neuts % (Manual) Lymphocytes % (Manual) Monocytes % (Manual) Basophils % (Manual) Seg Neutrophils # Seg Neutrophils # Man Lymphocytes # (Manual) Monocytes # (Manual) Eosinophils # (Manual) Basophils # (Manual) PT INR D-Dimer ABG pH POC ABG pCO2 POC ABG pO2 ABG pO2 ABG HCO3 ABG O2 Saturation ABG Base Excess ABG Hemoglobin ABG Oxyhemoglobin ABG Potassium ABG Glucose Oxyhemoglobin Carboxyhemoglobin Sodium Potassium Chloride Carbon Dioxide BUN Creatinine Glucose POC Glucose 147 H 114 H 134 H Calcium Ferritin Total Bilirubin Alkaline Phosphatase Lactate Dehydrogenase Total Creatine Kinase CK-MB (CK-2) Rel Index Troponin T C-Reactive Protein Total Protein Albumin Prealbumin LDL Cholesterol Direct HDL Cholesterol Arterial Blood Glucose Arterial Blood Ionized Calcium Urine WBC (Auto) 03/06/20 03/06/20 03/06/20 04:34 05:53 06:08 WBC 25.4 H RBC Hgb 10.5 L Hct 32.7 L MCV MCH 27 L RDW 15.3 H Plt Count 634 H Lymph % (Auto) [place] % (Auto) Lymph # (Auto) [place] # (Auto) Seg Neutrophils % Seg Neuts % (Manual) 88.0 H Lymphocytes % (Manual) 2.0 L Monocytes % (Manual) 8.0 H Basophils % (Manual) Seg Neutrophils # Seg Neutrophils # Man 22.4 H Lymphocytes # (Manual) 0.5 L Monocytes # (Manual) 2.0 H Eosinophils # (Manual) Basophils # (Manual) PT INR D-Dimer ABG pH POC ABG pCO2 POC ABG pO2 ABG pO2 ABG HCO3 37.9 H ABG O2 Saturation ABG Base Excess 11.4 H ABG Hemoglobin 10.6 L ABG Oxyhemoglobin ABG Potassium ABG Glucose Oxyhemoglobin 94.7 L Carboxyhemoglobin Sodium Potassium Chloride Carbon Dioxide BUN Creatinine Glucose POC Glucose 135 H Calcium Ferritin Total Bilirubin Alkaline Phosphatase Lactate Dehydrogenase Total Creatine Kinase CK-MB (CK-2) Rel Index Troponin T C-Reactive Protein Total Protein Albumin Prealbumin LDL Cholesterol Direct HDL Cholesterol Arterial Blood Glucose Arterial Blood Ionized Calcium Urine WBC (Auto) 03/06/20 03/06/20 03/06/20 06:08 12:19 19:10 WBC RBC Hgb Hct MCV MCH RDW Plt Count Lymph % (Auto) [place] % (Auto) Lymph # (Auto) [place] # (Auto) Seg Neutrophils % Seg Neuts % (Manual) Lymphocytes % (Manual) Monocytes % (Manual) Basophils % (Manual) Seg Neutrophils # Seg Neutrophils # Man Lymphocytes # (Manual) Monocytes # (Manual) Eosinophils # (Manual) Basophils # (Manual) PT INR D-Dimer ABG pH POC ABG pCO2 POC ABG pO2 ABG pO2 ABG HCO3 ABG O2 Saturation ABG Base Excess ABG Hemoglobin ABG Oxyhemoglobin ABG Potassium ABG Glucose Oxyhemoglobin Carboxyhemoglobin Sodium 150 H D Potassium Chloride Carbon Dioxide 39 H D BUN 23 H Creatinine < 0.2 L Glucose 144 H POC Glucose 169 H 152 H Calcium Ferritin Total Bilirubin Alkaline Phosphatase Lactate Dehydrogenase Total Creatine Kinase CK-MB (CK-2) Rel Index Troponin T C-Reactive Protein Total Protein Albumin 3.3 L Prealbumin LDL Cholesterol Direct HDL Cholesterol Arterial Blood Glucose Arterial Blood Ionized Calcium Urine WBC (Auto) 03/06/20 03/07/20 03/07/20 23:58 04:25 04:25 WBC 22.1 H RBC Hgb 10.9 L Hct 32.9 L MCV MCH RDW 15.5 H Plt Count 739 H Lymph % (Auto) 7.8 L [place] % (Auto) Lymph # (Auto) [place] # (Auto) 1.3 H Seg Neutrophils % 85.5 H Seg Neuts % (Manual) Lymphocytes % (Manual) Monocytes % (Manual) Basophils % (Manual) Seg Neutrophils # 18.9 H Seg Neutrophils # Man Lymphocytes # (Manual) Monocytes # (Manual) Eosinophils # (Manual) Basophils # (Manual) PT INR D-Dimer ABG pH POC ABG pCO2 POC ABG pO2 ABG pO2 ABG HCO3 ABG O2 Saturation ABG Base Excess ABG Hemoglobin ABG Oxyhemoglobin ABG Potassium ABG Glucose Oxyhemoglobin Carboxyhemoglobin Sodium 146 H Potassium Chloride Carbon Dioxide 37 H BUN Creatinine < 0.2 L Glucose 118 H POC Glucose 111 H Calcium Ferritin Total Bilirubin Alkaline Phosphatase Lactate Dehydrogenase Total Creatine Kinase CK-MB (CK-2) Rel Index Troponin T C-Reactive Protein Total Protein Albumin 3.7 L Prealbumin LDL Cholesterol Direct HDL Cholesterol Arterial Blood Glucose Arterial Blood Ionized Calcium Urine WBC (Auto) 03/07/20 03/07/20 03/07/20 05:20 17:45 23:32 WBC RBC Hgb Hct MCV MCH RDW Plt Count Lymph % (Auto) [place] % (Auto) Lymph # (Auto) [place] # (Auto) Seg Neutrophils % Seg Neuts % (Manual) Lymphocytes % (Manual) Monocytes % (Manual) Basophils % (Manual) Seg Neutrophils # Seg Neutrophils # Man Lymphocytes # (Manual) Monocytes # (Manual) Eosinophils # (Manual) Basophils # (Manual) PT INR D-Dimer ABG pH POC ABG pCO2 POC ABG pO2 ABG pO2 ABG HCO3 ABG O2 Saturation ABG Base Excess ABG Hemoglobin ABG Oxyhemoglobin ABG Potassium ABG Glucose Oxyhemoglobin Carboxyhemoglobin Sodium Potassium Chloride Carbon Dioxide BUN Creatinine Glucose POC Glucose 113 H 124 H 210 H Calcium Ferritin Total Bilirubin Alkaline Phosphatase Lactate Dehydrogenase Total Creatine Kinase CK-MB (CK-2) Rel Index Troponin T C-Reactive Protein Total Protein Albumin Prealbumin LDL Cholesterol Direct HDL Cholesterol Arterial Blood Glucose Arterial Blood Ionized Calcium Urine WBC (Auto) 03/08/20 03/08/20 03/08/20 05:35 06:43 06:43 WBC 28.9 H RBC 3.53 L Hgb 9.7 L Hct 30.3 L MCV MCH RDW 15.6 H Plt Count 578 H Lymph % (Auto) [place] % (Auto) Lymph # (Auto) [place] # (Auto) Seg Neutrophils % Seg Neuts % (Manual) 93.0 H Lymphocytes % (Manual) 4.0 L Monocytes % (Manual) Basophils % (Manual) Seg Neutrophils # Seg Neutrophils # Man 26.9 H Lymphocytes # (Manual) Monocytes # (Manual) Eosinophils # (Manual) Basophils # (Manual) PT INR D-Dimer ABG pH POC ABG pCO2 POC ABG pO2 ABG pO2 ABG HCO3 ABG O2 Saturation ABG Base Excess ABG Hemoglobin ABG Oxyhemoglobin ABG Potassium ABG Glucose Oxyhemoglobin Carboxyhemoglobin Sodium 146 H Potassium Chloride Carbon Dioxide 35 H BUN 34 H Creatinine 0.3 L D Glucose 125 H POC Glucose 147 H Calcium Ferritin Total Bilirubin Alkaline Phosphatase Lactate Dehydrogenase Total Creatine Kinase CK-MB (CK-2) Rel Index Troponin T C-Reactive Protein Total Protein 5.9 L Albumin 3.2 L Prealbumin LDL Cholesterol Direct HDL Cholesterol Arterial Blood Glucose Arterial Blood Ionized Calcium Urine WBC (Auto) 03/08/20 03/08/20 03/08/20 08:57 11:14 12:34 WBC RBC Hgb Hct MCV MCH RDW Plt Count Lymph % (Auto) [place] % (Auto) Lymph # (Auto) [place] # (Auto) Seg Neutrophils % Seg Neuts % (Manual) Lymphocytes % (Manual) Monocytes % (Manual) Basophils % (Manual) Seg Neutrophils # Seg Neutrophils # Man Lymphocytes # (Manual) Monocytes # (Manual) Eosinophils # (Manual) Basophils # (Manual) PT INR D-Dimer ABG pH POC ABG pCO2 63.1 H POC ABG pO2 ABG pO2 ABG HCO3 ABG O2 Saturation ABG Base Excess ABG Hemoglobin 10.9 L ABG Oxyhemoglobin ABG Potassium ABG Glucose 176 H Oxyhemoglobin Carboxyhemoglobin Sodium Potassium Chloride Carbon Dioxide BUN Creatinine Glucose POC Glucose 171 H Calcium Ferritin Total Bilirubin Alkaline Phosphatase Lactate Dehydrogenase Total Creatine Kinase CK-MB (CK-2) Rel Index Troponin T C-Reactive Protein Total Protein Albumin Prealbumin LDL Cholesterol Direct HDL Cholesterol Arterial Blood Glucose 176 H Arterial Blood Ionized Calcium 4.5 L Urine WBC (Auto) 10.0 H 03/08/20 03/08/20 03/09/20 18:02 23:43 05:49 WBC RBC Hgb Hct MCV MCH RDW Plt Count Lymph % (Auto) [place] % (Auto) Lymph # (Auto) [place] # (Auto) Seg Neutrophils % Seg Neuts % (Manual) Lymphocytes % (Manual) Monocytes % (Manual) Basophils % (Manual) Seg Neutrophils # Seg Neutrophils # Man Lymphocytes # (Manual) Monocytes # (Manual) Eosinophils # (Manual) Basophils # (Manual) PT INR D-Dimer ABG pH POC ABG pCO2 POC ABG pO2 ABG pO2 ABG HCO3 ABG O2 Saturation ABG Base Excess ABG Hemoglobin ABG Oxyhemoglobin ABG Potassium ABG Glucose Oxyhemoglobin Carboxyhemoglobin Sodium Potassium Chloride Carbon Dioxide BUN Creatinine Glucose POC Glucose 157 H 134 H 163 H Calcium Ferritin Total Bilirubin Alkaline Phosphatase Lactate Dehydrogenase Total Creatine Kinase CK-MB (CK-2) Rel Index Troponin T C-Reactive Protein Total Protein Albumin Prealbumin LDL Cholesterol Direct HDL Cholesterol Arterial Blood Glucose Arterial Blood Ionized Calcium Urine WBC (Auto) 03/09/20 03/09/20 03/09/20 08:35 08:35 12:11 WBC 23.4 H RBC 3.36 L Hgb 9.3 L Hct 28.8 L MCV MCH RDW 15.9 H Plt Count 521 H Lymph % (Auto) [place] % (Auto) Lymph # (Auto) [place] # (Auto) Seg Neutrophils % Seg Neuts % (Manual) 87.0 H Lymphocytes % (Manual) 4.0 L Monocytes % (Manual) 9.0 H Basophils % (Manual) Seg Neutrophils # Seg Neutrophils # Man 20.4 H Lymphocytes # (Manual) 0.9 L Monocytes # (Manual) 2.1 H Eosinophils # (Manual) Basophils # (Manual) PT INR D-Dimer ABG pH POC ABG pCO2 POC ABG pO2 ABG pO2 ABG HCO3 ABG O2 Saturation ABG Base Excess ABG Hemoglobin ABG Oxyhemoglobin ABG Potassium ABG Glucose Oxyhemoglobin Carboxyhemoglobin Sodium 147 H Potassium Chloride Carbon Dioxide 37 H BUN 63 H Creatinine Glucose 154 H POC Glucose 128 H Calcium Ferritin Total Bilirubin Alkaline Phosphatase Lactate Dehydrogenase Total Creatine Kinase CK-MB (CK-2) Rel Index Troponin T C-Reactive Protein Total Protein Albumin Prealbumin LDL Cholesterol Direct HDL Cholesterol Arterial Blood Glucose Arterial Blood Ionized Calcium Urine WBC (Auto) 03/09/20 03/10/20 03/10/20 17:51 00:25 05:41 WBC RBC Hgb Hct MCV MCH RDW Plt Count Lymph % (Auto) [place] % (Auto) Lymph # (Auto) [place] # (Auto) Seg Neutrophils % Seg Neuts % (Manual) Lymphocytes % (Manual) Monocytes % (Manual) Basophils % (Manual) Seg Neutrophils # Seg Neutrophils # Man Lymphocytes # (Manual) Monocytes # (Manual) Eosinophils # (Manual) Basophils # (Manual) PT INR D-Dimer ABG pH POC ABG pCO2 POC ABG pO2 ABG pO2 ABG HCO3 ABG O2 Saturation ABG Base Excess ABG Hemoglobin ABG Oxyhemoglobin ABG Potassium ABG Glucose Oxyhemoglobin Carboxyhemoglobin Sodium Potassium Chloride Carbon Dioxide BUN Creatinine Glucose POC Glucose 127 H 128 H 153 H Calcium Ferritin Total Bilirubin Alkaline Phosphatase Lactate Dehydrogenase Total Creatine Kinase CK-MB (CK-2) Rel Index Troponin T C-Reactive Protein Total Protein Albumin Prealbumin LDL Cholesterol Direct HDL Cholesterol Arterial Blood Glucose Arterial Blood Ionized Calcium Urine WBC (Auto) 03/10/20 03/10/20 03/10/20 06:14 06:14 12:02 WBC 18.3 H RBC 3.45 L Hgb 9.5 L Hct 29.5 L MCV MCH RDW 16.1 H Plt Count 494 H Lymph % (Auto) [place] % (Auto) Lymph # (Auto) [place] # (Auto) Seg Neutrophils % Seg Neuts % (Manual) 95.0 H Lymphocytes % (Manual) 1.0 L Monocytes % (Manual) Basophils % (Manual) Seg Neutrophils # Seg Neutrophils # Man 17.4 H Lymphocytes # (Manual) 0.2 L Monocytes # (Manual) Eosinophils # (Manual) Basophils # (Manual) PT INR D-Dimer ABG pH POC ABG pCO2 POC ABG pO2 ABG pO2 ABG HCO3 ABG O2 Saturation ABG Base Excess ABG Hemoglobin ABG Oxyhemoglobin ABG Potassium ABG Glucose Oxyhemoglobin Carboxyhemoglobin Sodium 149 H Potassium Chloride Carbon Dioxide 35 H BUN 34 H Creatinine 0.2 L D Glucose 177 H POC Glucose 151 H Calcium Ferritin Total Bilirubin Alkaline Phosphatase Lactate Dehydrogenase Total Creatine Kinase CK-MB (CK-2) Rel Index Troponin T C-Reactive Protein Total Protein Albumin Prealbumin LDL Cholesterol Direct HDL Cholesterol Arterial Blood Glucose Arterial Blood Ionized Calcium Urine WBC (Auto) 03/10/20 03/10/20 03/11/20 17:41 23:53 05:02 WBC RBC Hgb Hct MCV MCH RDW Plt Count Lymph % (Auto) [place] % (Auto) Lymph # (Auto) [place] # (Auto) Seg Neutrophils % Seg Neuts % (Manual) Lymphocytes % (Manual) Monocytes % (Manual) Basophils % (Manual) Seg Neutrophils # Seg Neutrophils # Man Lymphocytes # (Manual) Monocytes # (Manual) Eosinophils # (Manual) Basophils # (Manual) PT INR D-Dimer ABG pH POC ABG pCO2 POC ABG pO2 ABG pO2 ABG HCO3 ABG O2 Saturation ABG Base Excess ABG Hemoglobin ABG Oxyhemoglobin ABG Potassium ABG Glucose Oxyhemoglobin Carboxyhemoglobin Sodium Potassium Chloride Carbon Dioxide BUN Creatinine Glucose POC Glucose 168 H 142 H 146 H Calcium Ferritin Total Bilirubin Alkaline Phosphatase Lactate Dehydrogenase Total Creatine Kinase CK-MB (CK-2) Rel Index Troponin T C-Reactive Protein Total Protein Albumin Prealbumin LDL Cholesterol Direct HDL Cholesterol Arterial Blood Glucose Arterial Blood Ionized Calcium Urine WBC (Auto) 03/11/20 03/11/20 03/11/20 11:30 14:01 14:01 WBC 19.7 H RBC 3.04 L Hgb 8.7 L Hct 25.8 L MCV MCH RDW 15.6 H Plt Count Lymph % (Auto) [place] % (Auto) Lymph # (Auto) [place] # (Auto) Seg Neutrophils % Seg Neuts % (Manual) Lymphocytes % (Manual) Monocytes % (Manual) Basophils % (Manual) Seg Neutrophils # Seg Neutrophils # Man Lymphocytes # (Manual) Monocytes # (Manual) Eosinophils # (Manual) Basophils # (Manual) PT INR D-Dimer ABG pH POC ABG pCO2 POC ABG pO2 ABG pO2 ABG HCO3 ABG O2 Saturation ABG Base Excess ABG Hemoglobin ABG Oxyhemoglobin ABG Potassium ABG Glucose Oxyhemoglobin Carboxyhemoglobin Sodium 151 H Potassium Chloride Carbon Dioxide 37 H BUN Creatinine < 0.2 L Glucose 171 H POC Glucose 248 H Calcium Ferritin Total Bilirubin Alkaline Phosphatase Lactate Dehydrogenase Total Creatine Kinase CK-MB (CK-2) Rel Index Troponin T C-Reactive Protein Total Protein Albumin Prealbumin LDL Cholesterol Direct HDL Cholesterol Arterial Blood Glucose Arterial Blood Ionized Calcium Urine WBC (Auto) 03/11/20 03/11/20 03/12/20 17:09 23:52 04:39 WBC 19.9 H RBC 3.16 L Hgb 8.9 L Hct 27.5 L MCV MCH RDW 15.7 H Plt Count Lymph % (Auto) 6.8 L [place] % (Auto) Lymph # (Auto) [place] # (Auto) 1.2 H Seg Neutrophils % 86.0 H Seg Neuts % (Manual) Lymphocytes % (Manual) Monocytes % (Manual) Basophils % (Manual) Seg Neutrophils # 17.1 H Seg Neutrophils # Man Lymphocytes # (Manual) Monocytes # (Manual) Eosinophils # (Manual) Basophils # (Manual) PT INR D-Dimer ABG pH POC ABG pCO2 POC ABG pO2 ABG pO2 ABG HCO3 ABG O2 Saturation ABG Base Excess ABG Hemoglobin ABG Oxyhemoglobin ABG Potassium ABG Glucose Oxyhemoglobin Carboxyhemoglobin Sodium Potassium Chloride Carbon Dioxide BUN Creatinine Glucose POC Glucose 124 H 131 H Calcium Ferritin Total Bilirubin Alkaline Phosphatase Lactate Dehydrogenase Total Creatine Kinase CK-MB (CK-2) Rel Index Troponin T C-Reactive Protein Total Protein Albumin Prealbumin LDL Cholesterol Direct HDL Cholesterol Arterial Blood Glucose Arterial Blood Ionized Calcium Urine WBC (Auto) 03/12/20 03/12/20 03/12/20 04:39 05:28 11:34 WBC RBC Hgb Hct MCV MCH RDW Plt Count Lymph % (Auto) [place] % (Auto) Lymph # (Auto) [place] # (Auto) Seg Neutrophils % Seg Neuts % (Manual) Lymphocytes % (Manual) Monocytes % (Manual) Basophils % (Manual) Seg Neutrophils # Seg Neutrophils # Man Lymphocytes # (Manual) Monocytes # (Manual) Eosinophils # (Manual) Basophils # (Manual) PT INR D-Dimer ABG pH POC ABG pCO2 POC ABG pO2 ABG pO2 ABG HCO3 ABG O2 Saturation ABG Base Excess ABG Hemoglobin ABG Oxyhemoglobin ABG Potassium ABG Glucose Oxyhemoglobin Carboxyhemoglobin Sodium 147 H Potassium Chloride Carbon Dioxide 40 H BUN Creatinine < 0.2 L Glucose 175 H POC Glucose 167 H 144 H Calcium Ferritin Total Bilirubin Alkaline Phosphatase Lactate Dehydrogenase Total Creatine Kinase CK-MB (CK-2) Rel Index Troponin T C-Reactive Protein Total Protein Albumin Prealbumin LDL Cholesterol Direct HDL Cholesterol Arterial Blood Glucose Arterial Blood Ionized Calcium Urine WBC (Auto) 03/12/20 03/12/20 03/13/20 17:32 23:57 05:57 WBC RBC Hgb Hct MCV MCH RDW Plt Count Lymph % (Auto) [place] % (Auto) Lymph # (Auto) [place] # (Auto) Seg Neutrophils % Seg Neuts % (Manual) Lymphocytes % (Manual) Monocytes % (Manual) Basophils % (Manual) Seg Neutrophils # Seg Neutrophils # Man Lymphocytes # (Manual) Monocytes # (Manual) Eosinophils # (Manual) Basophils # (Manual) PT INR D-Dimer ABG pH POC ABG pCO2 POC ABG pO2 ABG pO2 ABG HCO3 ABG O2 Saturation ABG Base Excess ABG Hemoglobin ABG Oxyhemoglobin ABG Potassium ABG Glucose Oxyhemoglobin Carboxyhemoglobin Sodium Potassium Chloride Carbon Dioxide BUN Creatinine Glucose POC Glucose 141 H 137 H 161 H Calcium Ferritin Total Bilirubin Alkaline Phosphatase Lactate Dehydrogenase Total Creatine Kinase CK-MB (CK-2) Rel Index Troponin T C-Reactive Protein Total Protein Albumin Prealbumin LDL Cholesterol Direct HDL Cholesterol Arterial Blood Glucose Arterial Blood Ionized Calcium Urine WBC (Auto) 03/13/20 03/13/20 03/13/20 12:28 14:14 18:39 WBC RBC Hgb Hct MCV MCH RDW Plt Count Lymph % (Auto) [place] % (Auto) Lymph # (Auto) [place] # (Auto) Seg Neutrophils % Seg Neuts % (Manual) Lymphocytes % (Manual) Monocytes % (Manual) Basophils % (Manual) Seg Neutrophils # Seg Neutrophils # Man Lymphocytes # (Manual) Monocytes # (Manual) Eosinophils # (Manual) Basophils # (Manual) PT INR D-Dimer ABG pH POC ABG pCO2 POC ABG pO2 ABG pO2 ABG HCO3 ABG O2 Saturation ABG Base Excess ABG Hemoglobin ABG Oxyhemoglobin ABG Potassium ABG Glucose Oxyhemoglobin Carboxyhemoglobin Sodium Potassium Chloride Carbon Dioxide 39 H BUN Creatinine < 0.2 L Glucose 129 H POC Glucose 130 H 125 H Calcium Ferritin Total Bilirubin Alkaline Phosphatase Lactate Dehydrogenase Total Creatine Kinase CK-MB (CK-2) Rel Index Troponin T C-Reactive Protein Total Protein Albumin Prealbumin LDL Cholesterol Direct HDL Cholesterol Arterial Blood Glucose Arterial Blood Ionized Calcium Urine WBC (Auto) 03/13/20 03/14/20 03/14/20 23:33 05:24 08:07 WBC 16.8 H RBC 2.81 L Hgb 7.9 L Hct 23.9 L MCV MCH RDW 15.9 H Plt Count Lymph % (Auto) [place] % (Auto) Lymph # (Auto) [place] # (Auto) Seg Neutrophils % Seg Neuts % (Manual) 84.0 H Lymphocytes % (Manual) 10.0 L Monocytes % (Manual) Basophils % (Manual) Seg Neutrophils # Seg Neutrophils # Man 14.1 H Lymphocytes # (Manual) Monocytes # (Manual) Eosinophils # (Manual) Basophils # (Manual) PT INR D-Dimer ABG pH POC ABG pCO2 POC ABG pO2 ABG pO2 ABG HCO3 ABG O2 Saturation ABG Base Excess ABG Hemoglobin ABG Oxyhemoglobin ABG Potassium ABG Glucose Oxyhemoglobin Carboxyhemoglobin Sodium Potassium Chloride Carbon Dioxide BUN Creatinine Glucose POC Glucose 146 H 125 H Calcium Ferritin Total Bilirubin Alkaline Phosphatase Lactate Dehydrogenase Total Creatine Kinase CK-MB (CK-2) Rel Index Troponin T C-Reactive Protein Total Protein Albumin Prealbumin LDL Cholesterol Direct HDL Cholesterol Arterial Blood Glucose Arterial Blood Ionized Calcium Urine WBC (Auto) 03/14/20 03/14/20 03/14/20 08:07 12:21 18:26 WBC RBC Hgb Hct MCV MCH RDW Plt Count Lymph % (Auto) [place] % (Auto) Lymph # (Auto) [place] # (Auto) Seg Neutrophils % Seg Neuts % (Manual) Lymphocytes % (Manual) Monocytes % (Manual) Basophils % (Manual) Seg Neutrophils # Seg Neutrophils # Man Lymphocytes # (Manual) Monocytes # (Manual) Eosinophils # (Manual) Basophils # (Manual) PT INR D-Dimer ABG pH POC ABG pCO2 POC ABG pO2 ABG pO2 ABG HCO3 ABG O2 Saturation ABG Base Excess ABG Hemoglobin ABG Oxyhemoglobin ABG Potassium ABG Glucose Oxyhemoglobin Carboxyhemoglobin Sodium Potassium Chloride 97.0 L Carbon Dioxide 37 H BUN Creatinine < 0.2 L Glucose 129 H POC Glucose 109 H 142 H Calcium 8.3 L Ferritin Total Bilirubin Alkaline Phosphatase Lactate Dehydrogenase Total Creatine Kinase CK-MB (CK-2) Rel Index Troponin T C-Reactive Protein Total Protein Albumin Prealbumin LDL Cholesterol Direct HDL Cholesterol Arterial Blood Glucose Arterial Blood Ionized Calcium Urine WBC (Auto) 03/14/20 03/15/20 03/15/20 23:57 05:46 08:06 WBC 19.7 H RBC 3.29 L Hgb 9.1 L Hct 28.0 L MCV MCH RDW 15.9 H Plt Count Lymph % (Auto) [place] % (Auto) Lymph # (Auto) [place] # (Auto) Seg Neutrophils % Seg Neuts % (Manual) Lymphocytes % (Manual) Monocytes % (Manual) Basophils % (Manual) Seg Neutrophils # Seg Neutrophils # Man Lymphocytes # (Manual) Monocytes # (Manual) Eosinophils # (Manual) Basophils # (Manual) PT INR D-Dimer ABG pH POC ABG pCO2 POC ABG pO2 ABG pO2 ABG HCO3 ABG O2 Saturation ABG Base Excess ABG Hemoglobin ABG Oxyhemoglobin ABG Potassium ABG Glucose Oxyhemoglobin Carboxyhemoglobin Sodium Potassium Chloride Carbon Dioxide BUN Creatinine Glucose POC Glucose 157 H 118 H Calcium Ferritin Total Bilirubin Alkaline Phosphatase Lactate Dehydrogenase Total Creatine Kinase CK-MB (CK-2) Rel Index Troponin T C-Reactive Protein Total Protein Albumin Prealbumin LDL Cholesterol Direct HDL Cholesterol Arterial Blood Glucose Arterial Blood Ionized Calcium Urine WBC (Auto) 03/15/20 03/15/20 03/15/20 08:06 12:44 18:09 WBC RBC Hgb Hct MCV MCH RDW Plt Count Lymph % (Auto) [place] % (Auto) Lymph # (Auto) [place] # (Auto) Seg Neutrophils % Seg Neuts % (Manual) Lymphocytes % (Manual) Monocytes % (Manual) Basophils % (Manual) Seg Neutrophils # Seg Neutrophils # Man Lymphocytes # (Manual) Monocytes # (Manual) Eosinophils # (Manual) Basophils # (Manual) PT INR D-Dimer ABG pH POC ABG pCO2 POC ABG pO2 ABG pO2 ABG HCO3 ABG O2 Saturation ABG Base Excess ABG Hemoglobin ABG Oxyhemoglobin ABG Potassium ABG Glucose Oxyhemoglobin Carboxyhemoglobin Sodium 136 L Potassium Chloride 93.6 L Carbon Dioxide 37 H BUN Creatinine < 0.2 L Glucose 132 H POC Glucose 151 H 164 H Calcium Ferritin Total Bilirubin Alkaline Phosphatase Lactate Dehydrogenase Total Creatine Kinase CK-MB (CK-2) Rel Index Troponin T C-Reactive Protein Total Protein Albumin Prealbumin LDL Cholesterol Direct HDL Cholesterol Arterial Blood Glucose Arterial Blood Ionized Calcium Urine WBC (Auto) 03/15/20 03/16/20 03/16/20 23:26 05:39 11:58 WBC RBC Hgb Hct MCV MCH RDW Plt Count Lymph % (Auto) [place] % (Auto) Lymph # (Auto) [place] # (Auto) Seg Neutrophils % Seg Neuts % (Manual) Lymphocytes % (Manual) Monocytes % (Manual) Basophils % (Manual) Seg Neutrophils # Seg Neutrophils # Man Lymphocytes # (Manual) Monocytes # (Manual) Eosinophils # (Manual) Basophils # (Manual) PT INR D-Dimer ABG pH POC ABG pCO2 POC ABG pO2 ABG pO2 ABG HCO3 ABG O2 Saturation ABG Base Excess ABG Hemoglobin ABG Oxyhemoglobin ABG Potassium ABG Glucose Oxyhemoglobin Carboxyhemoglobin Sodium Potassium Chloride Carbon Dioxide BUN Creatinine Glucose POC Glucose 136 H 116 H 109 H Calcium Ferritin Total Bilirubin Alkaline Phosphatase Lactate Dehydrogenase Total Creatine Kinase CK-MB (CK-2) Rel Index Troponin T C-Reactive Protein Total Protein Albumin Prealbumin LDL Cholesterol Direct HDL Cholesterol Arterial Blood Glucose Arterial Blood Ionized Calcium Urine WBC (Auto) 03/16/20 03/17/20 03/17/20 23:56 04:40 04:40 WBC 18.0 H RBC 3.33 L Hgb 9.5 L Hct 28.8 L MCV MCH RDW 16.4 H Plt Count 499 H Lymph % (Auto) [place] % (Auto) Lymph # (Auto) [place] # (Auto) Seg Neutrophils % Seg Neuts % (Manual) 82.0 H Lymphocytes % (Manual) 8.0 L Monocytes % (Manual) Basophils % (Manual) Seg Neutrophils # Seg Neutrophils # Man 14.8 H Lymphocytes # (Manual) Monocytes # (Manual) 1.3 H Eosinophils # (Manual) Basophils # (Manual) 0.2 H PT INR D-Dimer ABG pH POC ABG pCO2 POC ABG pO2 ABG pO2 ABG HCO3 ABG O2 Saturation ABG Base Excess ABG Hemoglobin ABG Oxyhemoglobin ABG Potassium ABG Glucose Oxyhemoglobin Carboxyhemoglobin Sodium Potassium Chloride 97.7 L Carbon Dioxide 32 H BUN Creatinine < 0.2 L Glucose 114 H POC Glucose 131 H Calcium Ferritin Total Bilirubin Alkaline Phosphatase Lactate Dehydrogenase Total Creatine Kinase CK-MB (CK-2) Rel Index Troponin T C-Reactive Protein Total Protein Albumin Prealbumin LDL Cholesterol Direct HDL Cholesterol Arterial Blood Glucose Arterial Blood Ionized Calcium Urine WBC (Auto) 03/18/20 03/18/20 03/18/20 00:21 05:21 11:55 WBC RBC Hgb Hct MCV MCH RDW Plt Count Lymph % (Auto) [place] % (Auto) Lymph # (Auto) [place] # (Auto) Seg Neutrophils % Seg Neuts % (Manual) Lymphocytes % (Manual) Monocytes % (Manual) Basophils % (Manual) Seg Neutrophils # Seg Neutrophils # Man Lymphocytes # (Manual) Monocytes # (Manual) Eosinophils # (Manual) Basophils # (Manual) PT INR D-Dimer ABG pH POC ABG pCO2 POC ABG pO2 ABG pO2 ABG HCO3 ABG O2 Saturation ABG Base Excess ABG Hemoglobin ABG Oxyhemoglobin ABG Potassium ABG Glucose Oxyhemoglobin Carboxyhemoglobin Sodium Potassium Chloride Carbon Dioxide BUN Creatinine Glucose POC Glucose 124 H 138 H 119 H Calcium Ferritin Total Bilirubin Alkaline Phosphatase Lactate Dehydrogenase Total Creatine Kinase CK-MB (CK-2) Rel Index Troponin T C-Reactive Protein Total Protein Albumin Prealbumin LDL Cholesterol Direct HDL Cholesterol Arterial Blood Glucose Arterial Blood Ionized Calcium Urine WBC (Auto) 03/18/20 03/18/20 03/19/20 17:03 23:58 05:24 WBC RBC Hgb Hct MCV MCH RDW Plt Count Lymph % (Auto) [place] % (Auto) Lymph # (Auto) [place] # (Auto) Seg Neutrophils % Seg Neuts % (Manual) Lymphocytes % (Manual) Monocytes % (Manual) Basophils % (Manual) Seg Neutrophils # Seg Neutrophils # Man Lymphocytes # (Manual) Monocytes # (Manual) Eosinophils # (Manual) Basophils # (Manual) PT INR D-Dimer ABG pH POC ABG pCO2 POC ABG pO2 ABG pO2 ABG HCO3 ABG O2 Saturation ABG Base Excess ABG Hemoglobin ABG Oxyhemoglobin ABG Potassium ABG Glucose Oxyhemoglobin Carboxyhemoglobin Sodium Potassium Chloride Carbon Dioxide BUN Creatinine Glucose POC Glucose 128 H 128 H 115 H Calcium Ferritin Total Bilirubin Alkaline Phosphatase Lactate Dehydrogenase Total Creatine Kinase CK-MB (CK-2) Rel Index Troponin T C-Reactive Protein Total Protein Albumin Prealbumin LDL Cholesterol Direct HDL Cholesterol Arterial Blood Glucose Arterial Blood Ionized Calcium Urine WBC (Auto) 03/19/20 03/19/20 03/19/20 08:05 08:05 11:56 WBC 16.8 H RBC 3.36 L Hgb 9.4 L Hct 28.8 L MCV MCH RDW 17.4 H Plt Count 567 H Lymph % (Auto) 7.8 L [place] % (Auto) Lymph # (Auto) [place] # (Auto) 1.2 H Seg Neutrophils % 83.5 H Seg Neuts % (Manual) Lymphocytes % (Manual) Monocytes % (Manual) Basophils % (Manual) Seg Neutrophils # 14.1 H Seg Neutrophils # Man Lymphocytes # (Manual) Monocytes # (Manual) Eosinophils # (Manual) Basophils # (Manual) PT INR D-Dimer ABG pH POC ABG pCO2 POC ABG pO2 ABG pO2 ABG HCO3 ABG O2 Saturation ABG Base Excess ABG Hemoglobin ABG Oxyhemoglobin ABG Potassium ABG Glucose Oxyhemoglobin Carboxyhemoglobin Sodium Potassium Chloride Carbon Dioxide 36 H BUN Creatinine < 0.2 L Glucose 135 H POC Glucose 128 H Calcium Ferritin Total Bilirubin Alkaline Phosphatase Lactate Dehydrogenase Total Creatine Kinase CK-MB (CK-2) Rel Index Troponin T C-Reactive Protein Total Protein Albumin Prealbumin LDL Cholesterol Direct HDL Cholesterol Arterial Blood Glucose Arterial Blood Ionized Calcium Urine WBC (Auto) 03/19/20 03/20/20 03/20/20 23:59 05:12 16:52 WBC RBC Hgb Hct MCV MCH RDW Plt Count Lymph % (Auto) [place] % (Auto) Lymph # (Auto) [place] # (Auto) Seg Neutrophils % Seg Neuts % (Manual) Lymphocytes % (Manual) Monocytes % (Manual) Basophils % (Manual) Seg Neutrophils # Seg Neutrophils # Man Lymphocytes # (Manual) Monocytes # (Manual) Eosinophils # (Manual) Basophils # (Manual) PT INR D-Dimer ABG pH POC ABG pCO2 POC ABG pO2 ABG pO2 ABG HCO3 ABG O2 Saturation ABG Base Excess ABG Hemoglobin ABG Oxyhemoglobin ABG Potassium ABG Glucose Oxyhemoglobin Carboxyhemoglobin Sodium Potassium Chloride Carbon Dioxide BUN Creatinine Glucose POC Glucose 120 H 131 H 124 H Calcium Ferritin Total Bilirubin Alkaline Phosphatase Lactate Dehydrogenase Total Creatine Kinase CK-MB (CK-2) Rel Index Troponin T C-Reactive Protein Total Protein Albumin Prealbumin LDL Cholesterol Direct HDL Cholesterol Arterial Blood Glucose Arterial Blood Ionized Calcium Urine WBC (Auto) 03/20/20 03/21/20 03/21/20 23:35 04:50 07:35 WBC 15.2 H RBC 3.39 L Hgb 9.4 L Hct 29.4 L MCV MCH RDW 17.6 H Plt Count 518 H Lymph % (Auto) [place] % (Auto) Lymph # (Auto) [place] # (Auto) Seg Neutrophils % Seg Neuts % (Manual) 83.0 H Lymphocytes % (Manual) 10.0 L Monocytes % (Manual) Basophils % (Manual) 2.0 H Seg Neutrophils # Seg Neutrophils # Man 12.6 H Lymphocytes # (Manual) Monocytes # (Manual) Eosinophils # (Manual) Basophils # (Manual) 0.3 H PT INR D-Dimer ABG pH POC ABG pCO2 POC ABG pO2 ABG pO2 ABG HCO3 ABG O2 Saturation ABG Base Excess ABG Hemoglobin ABG Oxyhemoglobin ABG Potassium ABG Glucose Oxyhemoglobin Carboxyhemoglobin Sodium Potassium Chloride Carbon Dioxide BUN Creatinine Glucose POC Glucose 125 H 127 H Calcium Ferritin Total Bilirubin Alkaline Phosphatase Lactate Dehydrogenase Total Creatine Kinase CK-MB (CK-2) Rel Index Troponin T C-Reactive Protein Total Protein Albumin Prealbumin LDL Cholesterol Direct HDL Cholesterol Arterial Blood Glucose Arterial Blood Ionized Calcium Urine WBC (Auto) 03/21/20 03/21/20 03/21/20 07:35 11:45 17:22 WBC RBC Hgb Hct MCV MCH RDW Plt Count Lymph % (Auto) [place] % (Auto) Lymph # (Auto) [place] # (Auto) Seg Neutrophils % Seg Neuts % (Manual) Lymphocytes % (Manual) Monocytes % (Manual) Basophils % (Manual) Seg Neutrophils # Seg Neutrophils # Man Lymphocytes # (Manual) Monocytes # (Manual) Eosinophils # (Manual) Basophils # (Manual) PT INR D-Dimer ABG pH POC ABG pCO2 POC ABG pO2 ABG pO2 ABG HCO3 ABG O2 Saturation ABG Base Excess ABG Hemoglobin ABG Oxyhemoglobin ABG Potassium ABG Glucose Oxyhemoglobin Carboxyhemoglobin Sodium 136 L Potassium Chloride 97.7 L Carbon Dioxide 32 H BUN Creatinine < 0.2 L Glucose 103 H POC Glucose 126 H 120 H Calcium Ferritin Total Bilirubin Alkaline Phosphatase Lactate Dehydrogenase Total Creatine Kinase CK-MB (CK-2) Rel Index Troponin T C-Reactive Protein Total Protein Albumin Prealbumin LDL Cholesterol Direct HDL Cholesterol Arterial Blood Glucose Arterial Blood Ionized Calcium Urine WBC (Auto) 03/22/20 03/22/20 03/22/20 05:09 06:34 06:34 WBC 17.5 H RBC 3.52 L Hgb 10.0 L Hct 30.7 L MCV MCH RDW 17.5 H Plt Count 499 H Lymph % (Auto) [place] % (Auto) Lymph # (Auto) [place] # (Auto) Seg Neutrophils % Seg Neuts % (Manual) 80.0 H Lymphocytes % (Manual) 10.0 L Monocytes % (Manual) Basophils % (Manual) Seg Neutrophils # Seg Neutrophils # Man 14.0 H Lymphocytes # (Manual) Monocytes # (Manual) Eosinophils # (Manual) Basophils # (Manual) PT INR D-Dimer ABG pH POC ABG pCO2 POC ABG pO2 ABG pO2 ABG HCO3 ABG O2 Saturation ABG Base Excess ABG Hemoglobin ABG Oxyhemoglobin ABG Potassium ABG Glucose Oxyhemoglobin Carboxyhemoglobin Sodium Potassium Chloride 96.6 L Carbon Dioxide 38 H BUN Creatinine < 0.2 L Glucose 139 H POC Glucose 125 H Calcium Ferritin Total Bilirubin Alkaline Phosphatase Lactate Dehydrogenase Total Creatine Kinase CK-MB (CK-2) Rel Index Troponin T C-Reactive Protein Total Protein Albumin Prealbumin LDL Cholesterol Direct HDL Cholesterol Arterial Blood Glucose Arterial Blood Ionized Calcium Urine WBC (Auto) 03/22/20 03/22/20 03/22/20 11:45 18:00 23:32 WBC RBC Hgb Hct MCV MCH RDW Plt Count Lymph % (Auto) [place] % (Auto) Lymph # (Auto) [place] # (Auto) Seg Neutrophils % Seg Neuts % (Manual) Lymphocytes % (Manual) Monocytes % (Manual) Basophils % (Manual) Seg Neutrophils # Seg Neutrophils # Man Lymphocytes # (Manual) Monocytes # (Manual) Eosinophils # (Manual) Basophils # (Manual) PT INR D-Dimer ABG pH POC ABG pCO2 POC ABG pO2 ABG pO2 ABG HCO3 ABG O2 Saturation ABG Base Excess ABG Hemoglobin ABG Oxyhemoglobin ABG Potassium ABG Glucose Oxyhemoglobin Carboxyhemoglobin Sodium Potassium Chloride Carbon Dioxide BUN Creatinine Glucose POC Glucose 135 H 133 H Calcium Ferritin Total Bilirubin Alkaline Phosphatase Lactate Dehydrogenase Total Creatine Kinase CK-MB (CK-2) Rel Index Troponin T 0.113 H* C-Reactive Protein Total Protein Albumin Prealbumin LDL Cholesterol Direct HDL Cholesterol Arterial Blood Glucose Arterial Blood Ionized Calcium Urine WBC (Auto) 03/23/20 03/23/20 03/23/20 01:47 06:21 07:57 WBC RBC Hgb Hct MCV MCH RDW Plt Count Lymph % (Auto) [place] % (Auto) Lymph # (Auto) [place] # (Auto) Seg Neutrophils % Seg Neuts % (Manual) Lymphocytes % (Manual) Monocytes % (Manual) Basophils % (Manual) Seg Neutrophils # Seg Neutrophils # Man Lymphocytes # (Manual) Monocytes # (Manual) Eosinophils # (Manual) Basophils # (Manual) PT INR D-Dimer ABG pH POC ABG pCO2 POC ABG pO2 ABG pO2 ABG HCO3 ABG O2 Saturation ABG Base Excess ABG Hemoglobin ABG Oxyhemoglobin ABG Potassium ABG Glucose Oxyhemoglobin Carboxyhemoglobin Sodium Potassium Chloride Carbon Dioxide BUN Creatinine Glucose POC Glucose 130 H Calcium Ferritin Total Bilirubin Alkaline Phosphatase Lactate Dehydrogenase Total Creatine Kinase CK-MB (CK-2) Rel Index Troponin T 0.143 H* D 0.105 H* D C-Reactive Protein Total Protein Albumin Prealbumin LDL Cholesterol Direct HDL Cholesterol Arterial Blood Glucose Arterial Blood Ionized Calcium Urine WBC (Auto) 03/23/20 03/24/20 03/24/20 12:02 05:33 07:15 WBC 18.0 H RBC Hgb 11.0 L Hct 34.0 L MCV MCH RDW 17.4 H Plt Count 520 H Lymph % (Auto) [place] % (Auto) Lymph # (Auto) [place] # (Auto) Seg Neutrophils % Seg Neuts % (Manual) 88.0 H Lymphocytes % (Manual) 7.0 L Monocytes % (Manual) Basophils % (Manual) Seg Neutrophils # Seg Neutrophils # Man 15.8 H Lymphocytes # (Manual) Monocytes # (Manual) Eosinophils # (Manual) Basophils # (Manual) PT INR D-Dimer ABG pH POC ABG pCO2 POC ABG pO2 ABG pO2 ABG HCO3 ABG O2 Saturation ABG Base Excess ABG Hemoglobin ABG Oxyhemoglobin ABG Potassium ABG Glucose Oxyhemoglobin Carboxyhemoglobin Sodium Potassium Chloride Carbon Dioxide BUN Creatinine Glucose POC Glucose 137 H 112 H Calcium Ferritin Total Bilirubin Alkaline Phosphatase Lactate Dehydrogenase Total Creatine Kinase CK-MB (CK-2) Rel Index Troponin T C-Reactive Protein Total Protein Albumin Prealbumin LDL Cholesterol Direct HDL Cholesterol Arterial Blood Glucose Arterial Blood Ionized Calcium Urine WBC (Auto) 03/24/20 03/24/20 03/24/20 07:15 11:22 23:30 WBC RBC Hgb Hct MCV MCH RDW Plt Count Lymph % (Auto) [place] % (Auto) Lymph # (Auto) [place] # (Auto) Seg Neutrophils % Seg Neuts % (Manual) Lymphocytes % (Manual) Monocytes % (Manual) Basophils % (Manual) Seg Neutrophils # Seg Neutrophils # Man Lymphocytes # (Manual) Monocytes # (Manual) Eosinophils # (Manual) Basophils # (Manual) PT INR D-Dimer ABG pH POC ABG pCO2 POC ABG pO2 ABG pO2 ABG HCO3 ABG O2 Saturation ABG Base Excess ABG Hemoglobin ABG Oxyhemoglobin ABG Potassium ABG Glucose Oxyhemoglobin Carboxyhemoglobin Sodium Potassium Chloride 96.6 L Carbon Dioxide 38 H BUN Creatinine < 0.2 L Glucose 141 H POC Glucose 130 H 120 H Calcium Ferritin Total Bilirubin Alkaline Phosphatase Lactate Dehydrogenase Total Creatine Kinase CK-MB (CK-2) Rel Index Troponin T C-Reactive Protein Total Protein Albumin Prealbumin LDL Cholesterol Direct HDL Cholesterol Arterial Blood Glucose Arterial Blood Ionized Calcium Urine WBC (Auto) 03/25/20 03/25/20 03/25/20 05:48 17:53 23:18 WBC RBC Hgb Hct MCV MCH RDW Plt Count Lymph % (Auto) [place] % (Auto) Lymph # (Auto) [place] # (Auto) Seg Neutrophils % Seg Neuts % (Manual) Lymphocytes % (Manual) Monocytes % (Manual) Basophils % (Manual) Seg Neutrophils # Seg Neutrophils # Man Lymphocytes # (Manual) Monocytes # (Manual) Eosinophils # (Manual) Basophils # (Manual) PT INR D-Dimer ABG pH POC ABG pCO2 POC ABG pO2 ABG pO2 ABG HCO3 ABG O2 Saturation ABG Base Excess ABG Hemoglobin ABG Oxyhemoglobin ABG Potassium ABG Glucose Oxyhemoglobin Carboxyhemoglobin Sodium Potassium Chloride Carbon Dioxide BUN Creatinine Glucose POC Glucose 124 H 109 H 131 H Calcium Ferritin Total Bilirubin Alkaline Phosphatase Lactate Dehydrogenase Total Creatine Kinase CK-MB (CK-2) Rel Index Troponin T C-Reactive Protein Total Protein Albumin Prealbumin LDL Cholesterol Direct HDL Cholesterol Arterial Blood Glucose Arterial Blood Ionized Calcium Urine WBC (Auto) 03/26/20 03/26/20 03/26/20 05:21 08:49 08:49 WBC 19.7 H RBC Hgb 10.7 L Hct 33.5 L MCV MCH 27 L RDW 17.1 H Plt Count 480 H Lymph % (Auto) 5.7 L [place] % (Auto) Lymph # (Auto) 1.1 L [place] # (Auto) 1.2 H Seg Neutrophils % 87.7 H Seg Neuts % (Manual) Lymphocytes % (Manual) Monocytes % (Manual) Basophils % (Manual) Seg Neutrophils # 17.2 H Seg Neutrophils # Man Lymphocytes # (Manual) Monocytes # (Manual) Eosinophils # (Manual) Basophils # (Manual) PT INR D-Dimer ABG pH POC ABG pCO2 POC ABG pO2 ABG pO2 ABG HCO3 ABG O2 Saturation ABG Base Excess ABG Hemoglobin ABG Oxyhemoglobin ABG Potassium ABG Glucose Oxyhemoglobin Carboxyhemoglobin Sodium Potassium Chloride 97.2 L Carbon Dioxide 36 H BUN Creatinine < 0.2 L Glucose 127 H POC Glucose 116 H Calcium Ferritin Total Bilirubin Alkaline Phosphatase Lactate Dehydrogenase Total Creatine Kinase CK-MB (CK-2) Rel Index Troponin T C-Reactive Protein Total Protein Albumin Prealbumin LDL Cholesterol Direct HDL Cholesterol Arterial Blood Glucose Arterial Blood Ionized Calcium Urine WBC (Auto) 03/26/20 03/26/20 03/26/20 11:38 18:44 23:06 WBC RBC Hgb Hct MCV MCH RDW Plt Count Lymph % (Auto) [place] % (Auto) Lymph # (Auto) [place] # (Auto) Seg Neutrophils % Seg Neuts % (Manual) Lymphocytes % (Manual) Monocytes % (Manual) Basophils % (Manual) Seg Neutrophils # Seg Neutrophils # Man Lymphocytes # (Manual) Monocytes # (Manual) Eosinophils # (Manual) Basophils # (Manual) PT INR D-Dimer ABG pH POC ABG pCO2 POC ABG pO2 ABG pO2 ABG HCO3 ABG O2 Saturation ABG Base Excess ABG Hemoglobin ABG Oxyhemoglobin ABG Potassium ABG Glucose Oxyhemoglobin Carboxyhemoglobin Sodium Potassium Chloride Carbon Dioxide BUN Creatinine Glucose POC Glucose 120 H 111 H 134 H Calcium Ferritin Total Bilirubin Alkaline Phosphatase Lactate Dehydrogenase Total Creatine Kinase CK-MB (CK-2) Rel Index Troponin T C-Reactive Protein Total Protein Albumin Prealbumin LDL Cholesterol Direct HDL Cholesterol Arterial Blood Glucose Arterial Blood Ionized Calcium Urine WBC (Auto) 03/27/20 03/27/20 03/27/20 05:41 05:59 05:59 WBC 18.6 H RBC Hgb 10.1 L Hct 31.4 L MCV MCH RDW 17.2 H Plt Count Lymph % (Auto) 8.0 L [place] % (Auto) Lymph # (Auto) [place] # (Auto) 1.2 H Seg Neutrophils % 84.7 H Seg Neuts % (Manual) Lymphocytes % (Manual) Monocytes % (Manual) Basophils % (Manual) Seg Neutrophils # 15.8 H Seg Neutrophils # Man Lymphocytes # (Manual) Monocytes # (Manual) Eosinophils # (Manual) Basophils # (Manual) PT INR D-Dimer ABG pH POC ABG pCO2 POC ABG pO2 ABG pO2 ABG HCO3 ABG O2 Saturation ABG Base Excess ABG Hemoglobin ABG Oxyhemoglobin ABG Potassium ABG Glucose Oxyhemoglobin Carboxyhemoglobin Sodium Potassium Chloride Carbon Dioxide 34 H BUN Creatinine < 0.2 L Glucose 127 H POC Glucose 129 H Calcium Ferritin Total Bilirubin Alkaline Phosphatase Lactate Dehydrogenase Total Creatine Kinase CK-MB (CK-2) Rel Index Troponin T C-Reactive Protein Total Protein Albumin Prealbumin LDL Cholesterol Direct HDL Cholesterol Arterial Blood Glucose Arterial Blood Ionized Calcium Urine WBC (Auto) 03/27/20 03/27/20 03/28/20 17:28 23:22 05:23 WBC RBC Hgb Hct MCV MCH RDW Plt Count Lymph % (Auto) [place] % (Auto) Lymph # (Auto) [place] # (Auto) Seg Neutrophils % Seg Neuts % (Manual) Lymphocytes % (Manual) Monocytes % (Manual) Basophils % (Manual) Seg Neutrophils # Seg Neutrophils # Man Lymphocytes # (Manual) Monocytes # (Manual) Eosinophils # (Manual) Basophils # (Manual) PT INR D-Dimer ABG pH POC ABG pCO2 POC ABG pO2 ABG pO2 ABG HCO3 ABG O2 Saturation ABG Base Excess ABG Hemoglobin ABG Oxyhemoglobin ABG Potassium ABG Glucose Oxyhemoglobin Carboxyhemoglobin Sodium Potassium Chloride Carbon Dioxide BUN Creatinine Glucose POC Glucose 108 H 119 H 129 H Calcium Ferritin Total Bilirubin Alkaline Phosphatase Lactate Dehydrogenase Total Creatine Kinase CK-MB (CK-2) Rel Index Troponin T C-Reactive Protein Total Protein Albumin Prealbumin LDL Cholesterol Direct HDL Cholesterol Arterial Blood Glucose Arterial Blood Ionized Calcium Urine WBC (Auto) 03/28/20 03/28/20 03/28/20 10:28 10:28 11:36 WBC 23.6 H RBC 3.62 L Hgb 10.0 L Hct 30.8 L MCV MCH RDW 16.4 H Plt Count Lymph % (Auto) [place] % (Auto) Lymph # (Auto) [place] # (Auto) Seg Neutrophils % Seg Neuts % (Manual) 89.0 H Lymphocytes % (Manual) 5.0 L Monocytes % (Manual) Basophils % (Manual) Seg Neutrophils # Seg Neutrophils # Man 21.0 H Lymphocytes # (Manual) Monocytes # (Manual) 1.2 H Eosinophils # (Manual) Basophils # (Manual) 0.2 H PT INR D-Dimer ABG pH POC ABG pCO2 POC ABG pO2 ABG pO2 ABG HCO3 ABG O2 Saturation ABG Base Excess ABG Hemoglobin ABG Oxyhemoglobin ABG Potassium ABG Glucose Oxyhemoglobin Carboxyhemoglobin Sodium 134 L Potassium Chloride 94.2 L Carbon Dioxide 35 H BUN Creatinine < 0.2 L Glucose 134 H POC Glucose Calcium Ferritin Total Bilirubin Alkaline Phosphatase Lactate Dehydrogenase Total Creatine Kinase CK-MB (CK-2) Rel Index Troponin T C-Reactive Protein Total Protein Albumin Prealbumin LDL Cholesterol Direct HDL Cholesterol Arterial Blood Glucose Arterial Blood Ionized Calcium Urine WBC (Auto) 39.0 H 03/28/20 03/28/20 03/28/20 11:51 17:08 17:17 WBC RBC Hgb Hct MCV MCH RDW Plt Count Lymph % (Auto) [place] % (Auto) Lymph # (Auto) [place] # (Auto) Seg Neutrophils % Seg Neuts % (Manual) Lymphocytes % (Manual) Monocytes % (Manual) Basophils % (Manual) Seg Neutrophils # Seg Neutrophils # Man Lymphocytes # (Manual) Monocytes # (Manual) Eosinophils # (Manual) Basophils # (Manual) PT INR D-Dimer ABG pH POC ABG pCO2 POC ABG pO2 ABG pO2 ABG HCO3 ABG O2 Saturation ABG Base Excess ABG Hemoglobin ABG Oxyhemoglobin ABG Potassium ABG Glucose Oxyhemoglobin Carboxyhemoglobin Sodium Potassium Chloride Carbon Dioxide BUN Creatinine Glucose POC Glucose 123 H 112 H Calcium Ferritin Total Bilirubin Alkaline Phosphatase Lactate Dehydrogenase Total Creatine Kinase 47 L CK-MB (CK-2) Rel Index 4.6 H Troponin T 0.090 H C-Reactive Protein Total Protein Albumin Prealbumin LDL Cholesterol Direct HDL Cholesterol Arterial Blood Glucose Arterial Blood Ionized Calcium Urine WBC (Auto) 03/28/20 03/29/20 03/29/20 23:22 05:22 10:58 WBC RBC Hgb Hct MCV MCH RDW Plt Count Lymph % (Auto) [place] % (Auto) Lymph # (Auto) [place] # (Auto) Seg Neutrophils % Seg Neuts % (Manual) Lymphocytes % (Manual) Monocytes % (Manual) Basophils % (Manual) Seg Neutrophils # Seg Neutrophils # Man Lymphocytes # (Manual) Monocytes # (Manual) Eosinophils # (Manual) Basophils # (Manual) PT INR D-Dimer ABG pH POC ABG pCO2 POC ABG pO2 ABG pO2 ABG HCO3 ABG O2 Saturation ABG Base Excess ABG Hemoglobin ABG Oxyhemoglobin ABG Potassium ABG Glucose Oxyhemoglobin Carboxyhemoglobin Sodium Potassium Chloride Carbon Dioxide BUN Creatinine Glucose POC Glucose 122 H 116 H 133 H Calcium Ferritin Total Bilirubin Alkaline Phosphatase Lactate Dehydrogenase Total Creatine Kinase CK-MB (CK-2) Rel Index Troponin T C-Reactive Protein Total Protein Albumin Prealbumin LDL Cholesterol Direct HDL Cholesterol Arterial Blood Glucose Arterial Blood Ionized Calcium Urine WBC (Auto) 03/29/20 03/29/20 03/30/20 17:18 23:14 04:57 WBC RBC Hgb Hct MCV MCH RDW Plt Count Lymph % (Auto) [place] % (Auto) Lymph # (Auto) [place] # (Auto) Seg Neutrophils % Seg Neuts % (Manual) Lymphocytes % (Manual) Monocytes % (Manual) Basophils % (Manual) Seg Neutrophils # Seg Neutrophils # Man Lymphocytes # (Manual) Monocytes # (Manual) Eosinophils # (Manual) Basophils # (Manual) PT INR D-Dimer ABG pH POC ABG pCO2 POC ABG pO2 ABG pO2 ABG HCO3 ABG O2 Saturation ABG Base Excess ABG Hemoglobin ABG Oxyhemoglobin ABG Potassium ABG Glucose Oxyhemoglobin Carboxyhemoglobin Sodium Potassium Chloride Carbon Dioxide BUN Creatinine Glucose POC Glucose 111 H 114 H 130 H Calcium Ferritin Total Bilirubin Alkaline Phosphatase Lactate Dehydrogenase Total Creatine Kinase CK-MB (CK-2) Rel Index Troponin T C-Reactive Protein Total Protein Albumin Prealbumin LDL Cholesterol Direct HDL Cholesterol Arterial Blood Glucose Arterial Blood Ionized Calcium Urine WBC (Auto) 03/30/20 03/30/20 03/30/20 11:38 14:47 14:47 WBC 19.9 H RBC Hgb 10.9 L Hct 34.4 L MCV MCH 27 L RDW 16.5 H Plt Count 441 H Lymph % (Auto) 6.4 L [place] % (Auto) Lymph # (Auto) [place] # (Auto) 1.4 H Seg Neutrophils % 86.1 H Seg Neuts % (Manual) Lymphocytes % (Manual) Monocytes % (Manual) Basophils % (Manual) Seg Neutrophils # 17.1 H Seg Neutrophils # Man Lymphocytes # (Manual) Monocytes # (Manual) Eosinophils # (Manual) Basophils # (Manual) PT INR D-Dimer ABG pH POC ABG pCO2 POC ABG pO2 ABG pO2 ABG HCO3 ABG O2 Saturation ABG Base Excess ABG Hemoglobin ABG Oxyhemoglobin ABG Potassium ABG Glucose Oxyhemoglobin Carboxyhemoglobin Sodium 133 L Potassium Chloride 94.6 L Carbon Dioxide 33 H BUN Creatinine < 0.2 L Glucose 194 H POC Glucose 139 H Calcium Ferritin Total Bilirubin Alkaline Phosphatase Lactate Dehydrogenase Total Creatine Kinase CK-MB (CK-2) Rel Index Troponin T C-Reactive Protein Total Protein Albumin 2.8 L Prealbumin LDL Cholesterol Direct HDL Cholesterol Arterial Blood Glucose Arterial Blood Ionized Calcium Urine WBC (Auto) 03/30/20 03/31/20 03/31/20 17:07 05:02 15:21 WBC RBC Hgb Hct MCV MCH RDW Plt Count Lymph % (Auto) [place] % (Auto) Lymph # (Auto) [place] # (Auto) Seg Neutrophils % Seg Neuts % (Manual) Lymphocytes % (Manual) Monocytes % (Manual) Basophils % (Manual) Seg Neutrophils # Seg Neutrophils # Man Lymphocytes # (Manual) Monocytes # (Manual) Eosinophils # (Manual) Basophils # (Manual) PT INR D-Dimer ABG pH POC ABG pCO2 POC ABG pO2 ABG pO2 ABG HCO3 ABG O2 Saturation ABG Base Excess ABG Hemoglobin ABG Oxyhemoglobin ABG Potassium ABG Glucose Oxyhemoglobin Carboxyhemoglobin Sodium Potassium Chloride Carbon Dioxide BUN Creatinine Glucose POC Glucose 163 H 108 H 110 H Calcium Ferritin Total Bilirubin Alkaline Phosphatase Lactate Dehydrogenase Total Creatine Kinase CK-MB (CK-2) Rel Index Troponin T C-Reactive Protein Total Protein Albumin Prealbumin LDL Cholesterol Direct HDL Cholesterol Arterial Blood Glucose Arterial Blood Ionized Calcium Urine WBC (Auto) 03/31/20 03/31/20 04/01/20 17:58 23:19 05:09 WBC RBC Hgb Hct MCV MCH RDW Plt Count Lymph % (Auto) [place] % (Auto) Lymph # (Auto) [place] # (Auto) Seg Neutrophils % Seg Neuts % (Manual) Lymphocytes % (Manual) Monocytes % (Manual) Basophils % (Manual) Seg Neutrophils # Seg Neutrophils # Man Lymphocytes # (Manual) Monocytes # (Manual) Eosinophils # (Manual) Basophils # (Manual) PT INR D-Dimer ABG pH POC ABG pCO2 POC ABG pO2 ABG pO2 ABG HCO3 ABG O2 Saturation ABG Base Excess ABG Hemoglobin ABG Oxyhemoglobin ABG Potassium ABG Glucose Oxyhemoglobin Carboxyhemoglobin Sodium Potassium Chloride Carbon Dioxide BUN Creatinine Glucose POC Glucose 110 H 131 H 124 H Calcium Ferritin Total Bilirubin Alkaline Phosphatase Lactate Dehydrogenase Total Creatine Kinase CK-MB (CK-2) Rel Index Troponin T C-Reactive Protein Total Protein Albumin Prealbumin LDL Cholesterol Direct HDL Cholesterol Arterial Blood Glucose Arterial Blood Ionized Calcium Urine WBC (Auto) 04/01/20 04/01/20 04/01/20 11:50 17:01 23:21 WBC RBC Hgb Hct MCV MCH RDW Plt Count Lymph % (Auto) [place] % (Auto) Lymph # (Auto) [place] # (Auto) Seg Neutrophils % Seg Neuts % (Manual) Lymphocytes % (Manual) Monocytes % (Manual) Basophils % (Manual) Seg Neutrophils # Seg Neutrophils # Man Lymphocytes # (Manual) Monocytes # (Manual) Eosinophils # (Manual) Basophils # (Manual) PT INR D-Dimer ABG pH POC ABG pCO2 POC ABG pO2 ABG pO2 ABG HCO3 ABG O2 Saturation ABG Base Excess ABG Hemoglobin ABG Oxyhemoglobin ABG Potassium ABG Glucose Oxyhemoglobin Carboxyhemoglobin Sodium Potassium Chloride Carbon Dioxide BUN Creatinine Glucose POC Glucose 136 H 115 H 124 H Calcium Ferritin Total Bilirubin Alkaline Phosphatase Lactate Dehydrogenase Total Creatine Kinase CK-MB (CK-2) Rel Index Troponin T C-Reactive Protein Total Protein Albumin Prealbumin LDL Cholesterol Direct HDL Cholesterol Arterial Blood Glucose Arterial Blood Ionized Calcium Urine WBC (Auto) 04/02/20 04/02/20 04/02/20 05:27 11:58 17:58 WBC RBC Hgb Hct MCV MCH RDW Plt Count Lymph % (Auto) [place] % (Auto) Lymph # (Auto) [place] # (Auto) Seg Neutrophils % Seg Neuts % (Manual) Lymphocytes % (Manual) Monocytes % (Manual) Basophils % (Manual) Seg Neutrophils # Seg Neutrophils # Man Lymphocytes # (Manual) Monocytes # (Manual) Eosinophils # (Manual) Basophils # (Manual) PT INR D-Dimer ABG pH POC ABG pCO2 POC ABG pO2 ABG pO2 ABG HCO3 ABG O2 Saturation ABG Base Excess ABG Hemoglobin ABG Oxyhemoglobin ABG Potassium ABG Glucose Oxyhemoglobin Carboxyhemoglobin Sodium Potassium Chloride Carbon Dioxide BUN Creatinine Glucose POC Glucose 117 H 133 H 122 H Calcium Ferritin Total Bilirubin Alkaline Phosphatase Lactate Dehydrogenase Total Creatine Kinase CK-MB (CK-2) Rel Index Troponin T C-Reactive Protein Total Protein Albumin Prealbumin LDL Cholesterol Direct HDL Cholesterol Arterial Blood Glucose Arterial Blood Ionized Calcium Urine WBC (Auto) 04/02/20 04/03/20 04/03/20 23:12 05:11 11:11 WBC RBC Hgb Hct MCV MCH RDW Plt Count Lymph % (Auto) [place] % (Auto) Lymph # (Auto) [place] # (Auto) Seg Neutrophils % Seg Neuts % (Manual) Lymphocytes % (Manual) Monocytes % (Manual) Basophils % (Manual) Seg Neutrophils # Seg Neutrophils # Man Lymphocytes # (Manual) Monocytes # (Manual) Eosinophils # (Manual) Basophils # (Manual) PT INR D-Dimer ABG pH POC ABG pCO2 POC ABG pO2 ABG pO2 ABG HCO3 ABG O2 Saturation ABG Base Excess ABG Hemoglobin ABG Oxyhemoglobin ABG Potassium ABG Glucose Oxyhemoglobin Carboxyhemoglobin Sodium Potassium Chloride Carbon Dioxide BUN Creatinine Glucose POC Glucose 130 H 139 H 136 H Calcium Ferritin Total Bilirubin Alkaline Phosphatase Lactate Dehydrogenase Total Creatine Kinase CK-MB (CK-2) Rel Index Troponin T C-Reactive Protein Total Protein Albumin Prealbumin LDL Cholesterol Direct HDL Cholesterol Arterial Blood Glucose Arterial Blood Ionized Calcium Urine WBC (Auto) 04/03/20 04/03/20 04/04/20 16:51 23:25 05:29 WBC RBC Hgb Hct MCV MCH RDW Plt Count Lymph % (Auto) [place] % (Auto) Lymph # (Auto) [place] # (Auto) Seg Neutrophils % Seg Neuts % (Manual) Lymphocytes % (Manual) Monocytes % (Manual) Basophils % (Manual) Seg Neutrophils # Seg Neutrophils # Man Lymphocytes # (Manual) Monocytes # (Manual) Eosinophils # (Manual) Basophils # (Manual) PT INR D-Dimer ABG pH POC ABG pCO2 POC ABG pO2 ABG pO2 ABG HCO3 ABG O2 Saturation ABG Base Excess ABG Hemoglobin ABG Oxyhemoglobin ABG Potassium ABG Glucose Oxyhemoglobin Carboxyhemoglobin Sodium Potassium Chloride Carbon Dioxide BUN Creatinine Glucose POC Glucose 118 H 111 H 126 H Calcium Ferritin Total Bilirubin Alkaline Phosphatase Lactate Dehydrogenase Total Creatine Kinase CK-MB (CK-2) Rel Index Troponin T C-Reactive Protein Total Protein Albumin Prealbumin LDL Cholesterol Direct HDL Cholesterol Arterial Blood Glucose Arterial Blood Ionized Calcium Urine WBC (Auto) 04/04/20 04/04/20 04/04/20 11:47 17:41 23:05 WBC RBC Hgb Hct MCV MCH RDW Plt Count Lymph % (Auto) [place] % (Auto) Lymph # (Auto) [place] # (Auto) Seg Neutrophils % Seg Neuts % (Manual) Lymphocytes % (Manual) Monocytes % (Manual) Basophils % (Manual) Seg Neutrophils # Seg Neutrophils # Man Lymphocytes # (Manual) Monocytes # (Manual) Eosinophils # (Manual) Basophils # (Manual) PT INR D-Dimer ABG pH POC ABG pCO2 POC ABG pO2 ABG pO2 ABG HCO3 ABG O2 Saturation ABG Base Excess ABG Hemoglobin ABG Oxyhemoglobin ABG Potassium ABG Glucose Oxyhemoglobin Carboxyhemoglobin Sodium Potassium Chloride Carbon Dioxide BUN Creatinine Glucose POC Glucose 123 H 120 H 119 H Calcium Ferritin Total Bilirubin Alkaline Phosphatase Lactate Dehydrogenase Total Creatine Kinase CK-MB (CK-2) Rel Index Troponin T C-Reactive Protein Total Protein Albumin Prealbumin LDL Cholesterol Direct HDL Cholesterol Arterial Blood Glucose Arterial Blood Ionized Calcium Urine WBC (Auto) 04/05/20 04/05/20 04/05/20 05:14 12:16 18:48 WBC RBC Hgb Hct MCV MCH RDW Plt Count Lymph % (Auto) [place] % (Auto) Lymph # (Auto) [place] # (Auto) Seg Neutrophils % Seg Neuts % (Manual) Lymphocytes % (Manual) Monocytes % (Manual) Basophils % (Manual) Seg Neutrophils # Seg Neutrophils # Man Lymphocytes # (Manual) Monocytes # (Manual) Eosinophils # (Manual) Basophils # (Manual) PT INR D-Dimer ABG pH POC ABG pCO2 POC ABG pO2 ABG pO2 ABG HCO3 ABG O2 Saturation ABG Base Excess ABG Hemoglobin ABG Oxyhemoglobin ABG Potassium ABG Glucose Oxyhemoglobin Carboxyhemoglobin Sodium Potassium Chloride Carbon Dioxide BUN Creatinine Glucose POC Glucose 123 H 148 H 106 H Calcium Ferritin Total Bilirubin Alkaline Phosphatase Lactate Dehydrogenase Total Creatine Kinase CK-MB (CK-2) Rel Index Troponin T C-Reactive Protein Total Protein Albumin Prealbumin LDL Cholesterol Direct HDL Cholesterol Arterial Blood Glucose Arterial Blood Ionized Calcium Urine WBC (Auto) 04/06/20 04/06/20 04/06/20 00:47 03:26 08:24 WBC RBC Hgb Hct MCV MCH RDW Plt Count Lymph % (Auto) [place] % (Auto) Lymph # (Auto) [place] # (Auto) Seg Neutrophils % Seg Neuts % (Manual) Lymphocytes % (Manual) Monocytes % (Manual) Basophils % (Manual) Seg Neutrophils # Seg Neutrophils # Man Lymphocytes # (Manual) Monocytes # (Manual) Eosinophils # (Manual) Basophils # (Manual) PT INR D-Dimer ABG pH POC ABG pCO2 POC ABG pO2 ABG pO2 ABG HCO3 ABG O2 Saturation ABG Base Excess ABG Hemoglobin ABG Oxyhemoglobin ABG Potassium ABG Glucose Oxyhemoglobin Carboxyhemoglobin Sodium Potassium Chloride Carbon Dioxide BUN Creatinine Glucose POC Glucose 129 H 134 H 131 H Calcium Ferritin Total Bilirubin Alkaline Phosphatase Lactate Dehydrogenase Total Creatine Kinase CK-MB (CK-2) Rel Index Troponin T C-Reactive Protein Total Protein Albumin Prealbumin LDL Cholesterol Direct HDL Cholesterol Arterial Blood Glucose Arterial Blood Ionized Calcium Urine WBC (Auto) 04/06/20 04/06/20 04/06/20 11:16 16:27 23:01 WBC RBC Hgb Hct MCV MCH RDW Plt Count Lymph % (Auto) [place] % (Auto) Lymph # (Auto) [place] # (Auto) Seg Neutrophils % Seg Neuts % (Manual) Lymphocytes % (Manual) Monocytes % (Manual) Basophils % (Manual) Seg Neutrophils # Seg Neutrophils # Man Lymphocytes # (Manual) Monocytes # (Manual) Eosinophils # (Manual) Basophils # (Manual) PT INR D-Dimer ABG pH POC ABG pCO2 POC ABG pO2 ABG pO2 ABG HCO3 ABG O2 Saturation ABG Base Excess ABG Hemoglobin ABG Oxyhemoglobin ABG Potassium ABG Glucose Oxyhemoglobin Carboxyhemoglobin Sodium Potassium Chloride Carbon Dioxide BUN Creatinine Glucose POC Glucose 131 H 107 H 125 H Calcium Ferritin Total Bilirubin Alkaline Phosphatase Lactate Dehydrogenase Total Creatine Kinase CK-MB (CK-2) Rel Index Troponin T C-Reactive Protein Total Protein Albumin Prealbumin LDL Cholesterol Direct HDL Cholesterol Arterial Blood Glucose Arterial Blood Ionized Calcium Urine WBC (Auto) 04/07/20 04/07/20 04/07/20 05:24 12:41 17:40 WBC RBC Hgb Hct MCV MCH RDW Plt Count Lymph % (Auto) [place] % (Auto) Lymph # (Auto) [place] # (Auto) Seg Neutrophils % Seg Neuts % (Manual) Lymphocytes % (Manual) Monocytes % (Manual) Basophils % (Manual) Seg Neutrophils # Seg Neutrophils # Man Lymphocytes # (Manual) Monocytes # (Manual) Eosinophils # (Manual) Basophils # (Manual) PT INR D-Dimer ABG pH POC ABG pCO2 POC ABG pO2 ABG pO2 ABG HCO3 ABG O2 Saturation ABG Base Excess ABG Hemoglobin ABG Oxyhemoglobin ABG Potassium ABG Glucose Oxyhemoglobin Carboxyhemoglobin Sodium Potassium Chloride Carbon Dioxide BUN Creatinine Glucose POC Glucose 125 H 145 H 123 H Calcium Ferritin Total Bilirubin Alkaline Phosphatase Lactate Dehydrogenase Total Creatine Kinase CK-MB (CK-2) Rel Index Troponin T C-Reactive Protein Total Protein Albumin Prealbumin LDL Cholesterol Direct HDL Cholesterol Arterial Blood Glucose Arterial Blood Ionized Calcium Urine WBC (Auto) 04/07/20 04/08/20 04/08/20 23:22 05:40 11:29 WBC RBC Hgb Hct MCV MCH RDW Plt Count Lymph % (Auto) [place] % (Auto) Lymph # (Auto) [place] # (Auto) Seg Neutrophils % Seg Neuts % (Manual) Lymphocytes % (Manual) Monocytes % (Manual) Basophils % (Manual) Seg Neutrophils # Seg Neutrophils # Man Lymphocytes # (Manual) Monocytes # (Manual) Eosinophils # (Manual) Basophils # (Manual) PT INR D-Dimer ABG pH POC ABG pCO2 POC ABG pO2 ABG pO2 ABG HCO3 ABG O2 Saturation ABG Base Excess ABG Hemoglobin ABG Oxyhemoglobin ABG Potassium ABG Glucose Oxyhemoglobin Carboxyhemoglobin Sodium Potassium Chloride Carbon Dioxide BUN Creatinine Glucose POC Glucose 133 H 125 H 116 H Calcium Ferritin Total Bilirubin Alkaline Phosphatase Lactate Dehydrogenase Total Creatine Kinase CK-MB (CK-2) Rel Index Troponin T C-Reactive Protein Total Protein Albumin Prealbumin LDL Cholesterol Direct HDL Cholesterol Arterial Blood Glucose Arterial Blood Ionized Calcium Urine WBC (Auto) 04/08/20 04/09/20 04/09/20 17:43 05:47 12:22 WBC RBC Hgb Hct MCV MCH RDW Plt Count Lymph % (Auto) [place] % (Auto) Lymph # (Auto) [place] # (Auto) Seg Neutrophils % Seg Neuts % (Manual) Lymphocytes % (Manual) Monocytes % (Manual) Basophils % (Manual) Seg Neutrophils # Seg Neutrophils # Man Lymphocytes # (Manual) Monocytes # (Manual) Eosinophils # (Manual) Basophils # (Manual) PT INR D-Dimer ABG pH POC ABG pCO2 POC ABG pO2 ABG pO2 ABG HCO3 ABG O2 Saturation ABG Base Excess ABG Hemoglobin ABG Oxyhemoglobin ABG Potassium ABG Glucose Oxyhemoglobin Carboxyhemoglobin Sodium Potassium Chloride Carbon Dioxide BUN Creatinine Glucose POC Glucose 123 H 108 H 116 H Calcium Ferritin Total Bilirubin Alkaline Phosphatase Lactate Dehydrogenase Total Creatine Kinase CK-MB (CK-2) Rel Index Troponin T C-Reactive Protein Total Protein Albumin Prealbumin LDL Cholesterol Direct HDL Cholesterol Arterial Blood Glucose Arterial Blood Ionized Calcium Urine WBC (Auto) 04/09/20 04/09/20 04/10/20 17:24 23:52 06:10 WBC RBC Hgb Hct MCV MCH RDW Plt Count Lymph % (Auto) [place] % (Auto) Lymph # (Auto) [place] # (Auto) Seg Neutrophils % Seg Neuts % (Manual) Lymphocytes % (Manual) Monocytes % (Manual) Basophils % (Manual) Seg Neutrophils # Seg Neutrophils # Man Lymphocytes # (Manual) Monocytes # (Manual) Eosinophils # (Manual) Basophils # (Manual) PT INR D-Dimer ABG pH POC ABG pCO2 POC ABG pO2 ABG pO2 ABG HCO3 ABG O2 Saturation ABG Base Excess ABG Hemoglobin ABG Oxyhemoglobin ABG Potassium ABG Glucose Oxyhemoglobin Carboxyhemoglobin Sodium Potassium Chloride Carbon Dioxide BUN Creatinine Glucose POC Glucose 108 H 126 H 122 H Calcium Ferritin Total Bilirubin Alkaline Phosphatase Lactate Dehydrogenase Total Creatine Kinase CK-MB (CK-2) Rel Index Troponin T C-Reactive Protein Total Protein Albumin Prealbumin LDL Cholesterol Direct HDL Cholesterol Arterial Blood Glucose Arterial Blood Ionized Calcium Urine WBC (Auto) 04/10/20 04/10/20 04/10/20 11:27 18:11 23:24 WBC RBC Hgb Hct MCV MCH RDW Plt Count Lymph % (Auto) [place] % (Auto) Lymph # (Auto) [place] # (Auto) Seg Neutrophils % Seg Neuts % (Manual) Lymphocytes % (Manual) Monocytes % (Manual) Basophils % (Manual) Seg Neutrophils # Seg Neutrophils # Man Lymphocytes # (Manual) Monocytes # (Manual) Eosinophils # (Manual) Basophils # (Manual) PT INR D-Dimer ABG pH POC ABG pCO2 POC ABG pO2 ABG pO2 ABG HCO3 ABG O2 Saturation ABG Base Excess ABG Hemoglobin ABG Oxyhemoglobin ABG Potassium ABG Glucose Oxyhemoglobin Carboxyhemoglobin Sodium Potassium Chloride Carbon Dioxide BUN Creatinine Glucose POC Glucose 129 H 125 H 107 H Calcium Ferritin Total Bilirubin Alkaline Phosphatase Lactate Dehydrogenase Total Creatine Kinase CK-MB (CK-2) Rel Index Troponin T C-Reactive Protein Total Protein Albumin Prealbumin LDL Cholesterol Direct HDL Cholesterol Arterial Blood Glucose Arterial Blood Ionized Calcium Urine WBC (Auto) 04/11/20 04/11/20 04/11/20 05:28 11:46 23:49 WBC RBC Hgb Hct MCV MCH RDW Plt Count Lymph % (Auto) [place] % (Auto) Lymph # (Auto) [place] # (Auto) Seg Neutrophils % Seg Neuts % (Manual) Lymphocytes % (Manual) Monocytes % (Manual) Basophils % (Manual) Seg Neutrophils # Seg Neutrophils # Man Lymphocytes # (Manual) Monocytes # (Manual) Eosinophils # (Manual) Basophils # (Manual) PT INR D-Dimer ABG pH POC ABG pCO2 POC ABG pO2 ABG pO2 ABG HCO3 ABG O2 Saturation ABG Base Excess ABG Hemoglobin ABG Oxyhemoglobin ABG Potassium ABG Glucose Oxyhemoglobin Carboxyhemoglobin Sodium Potassium Chloride Carbon Dioxide BUN Creatinine Glucose POC Glucose 122 H 122 H 116 H Calcium Ferritin Total Bilirubin Alkaline Phosphatase Lactate Dehydrogenase Total Creatine Kinase CK-MB (CK-2) Rel Index Troponin T C-Reactive Protein Total Protein Albumin Prealbumin LDL Cholesterol Direct HDL Cholesterol Arterial Blood Glucose Arterial Blood Ionized Calcium Urine WBC (Auto) 04/12/20 04/12/20 04/12/20 09:07 09:07 11:39 WBC 13.1 H RBC 3.59 L Hgb 9.5 L Hct 29.8 L MCV 83 L MCH 26 L RDW 16.6 H Plt Count 591 H Lymph % (Auto) [place] % (Auto) Lymph # (Auto) [place] # (Auto) Seg Neutrophils % Seg Neuts % (Manual) 86.0 H Lymphocytes % (Manual) 7.0 L Monocytes % (Manual) Basophils % (Manual) Seg Neutrophils # Seg Neutrophils # Man 11.3 H Lymphocytes # (Manual) 0.9 L Monocytes # (Manual) Eosinophils # (Manual) Basophils # (Manual) PT INR D-Dimer ABG pH POC ABG pCO2 POC ABG pO2 ABG pO2 ABG HCO3 ABG O2 Saturation ABG Base Excess ABG Hemoglobin ABG Oxyhemoglobin ABG Potassium ABG Glucose Oxyhemoglobin Carboxyhemoglobin Sodium Potassium Chloride Carbon Dioxide 36 H BUN Creatinine < 0.2 L Glucose 132 H POC Glucose 136 H Calcium Ferritin Total Bilirubin Alkaline Phosphatase Lactate Dehydrogenase Total Creatine Kinase CK-MB (CK-2) Rel Index Troponin T C-Reactive Protein Total Protein Albumin 2.7 L Prealbumin LDL Cholesterol Direct HDL Cholesterol Arterial Blood Glucose Arterial Blood Ionized Calcium Urine WBC (Auto) 04/12/20 04/12/20 04/13/20 18:13 23:07 05:45 WBC RBC Hgb Hct MCV MCH RDW Plt Count Lymph % (Auto) [place] % (Auto) Lymph # (Auto) [place] # (Auto) Seg Neutrophils % Seg Neuts % (Manual) Lymphocytes % (Manual) Monocytes % (Manual) Basophils % (Manual) Seg Neutrophils # Seg Neutrophils # Man Lymphocytes # (Manual) Monocytes # (Manual) Eosinophils # (Manual) Basophils # (Manual) PT INR D-Dimer ABG pH POC ABG pCO2 POC ABG pO2 ABG pO2 ABG HCO3 ABG O2 Saturation ABG Base Excess ABG Hemoglobin ABG Oxyhemoglobin ABG Potassium ABG Glucose Oxyhemoglobin Carboxyhemoglobin Sodium Potassium Chloride Carbon Dioxide BUN Creatinine Glucose POC Glucose 107 H 106 H 125 H Calcium Ferritin Total Bilirubin Alkaline Phosphatase Lactate Dehydrogenase Total Creatine Kinase CK-MB (CK-2) Rel Index Troponin T C-Reactive Protein Total Protein Albumin Prealbumin LDL Cholesterol Direct HDL Cholesterol Arterial Blood Glucose Arterial Blood Ionized Calcium Urine WBC (Auto) 04/13/20 04/13/20 04/13/20 11:18 17:56 23:33 WBC RBC Hgb Hct MCV MCH RDW Plt Count Lymph % (Auto) [place] % (Auto) Lymph # (Auto) [place] # (Auto) Seg Neutrophils % Seg Neuts % (Manual) Lymphocytes % (Manual) Monocytes % (Manual) Basophils % (Manual) Seg Neutrophils # Seg Neutrophils # Man Lymphocytes # (Manual) Monocytes # (Manual) Eosinophils # (Manual) Basophils # (Manual) PT INR D-Dimer ABG pH POC ABG pCO2 POC ABG pO2 ABG pO2 ABG HCO3 ABG O2 Saturation ABG Base Excess ABG Hemoglobin ABG Oxyhemoglobin ABG Potassium ABG Glucose Oxyhemoglobin Carboxyhemoglobin Sodium Potassium Chloride Carbon Dioxide BUN Creatinine Glucose POC Glucose 133 H 110 H 114 H Calcium Ferritin Total Bilirubin Alkaline Phosphatase Lactate Dehydrogenase Total Creatine Kinase CK-MB (CK-2) Rel Index Troponin T C-Reactive Protein Total Protein Albumin Prealbumin LDL Cholesterol Direct HDL Cholesterol Arterial Blood Glucose Arterial Blood Ionized Calcium Urine WBC (Auto) 04/14/20 04/14/20 04/14/20 05:58 11:45 17:48 WBC RBC Hgb Hct MCV MCH RDW Plt Count Lymph % (Auto) [place] % (Auto) Lymph # (Auto) [place] # (Auto) Seg Neutrophils % Seg Neuts % (Manual) Lymphocytes % (Manual) Monocytes % (Manual) Basophils % (Manual) Seg Neutrophils # Seg Neutrophils # Man Lymphocytes # (Manual) Monocytes # (Manual) Eosinophils # (Manual) Basophils # (Manual) PT INR D-Dimer ABG pH POC ABG pCO2 POC ABG pO2 ABG pO2 ABG HCO3 ABG O2 Saturation ABG Base Excess ABG Hemoglobin ABG Oxyhemoglobin ABG Potassium ABG Glucose Oxyhemoglobin Carboxyhemoglobin Sodium Potassium Chloride Carbon Dioxide BUN Creatinine Glucose POC Glucose 115 H 122 H 124 H Calcium Ferritin Total Bilirubin Alkaline Phosphatase Lactate Dehydrogenase Total Creatine Kinase CK-MB (CK-2) Rel Index Troponin T C-Reactive Protein Total Protein Albumin Prealbumin LDL Cholesterol Direct HDL Cholesterol Arterial Blood Glucose Arterial Blood Ionized Calcium Urine WBC (Auto) 04/15/20 04/15/20 04/15/20 00:11 05:38 11:31 WBC RBC Hgb Hct MCV MCH RDW Plt Count Lymph % (Auto) [place] % (Auto) Lymph # (Auto) [place] # (Auto) Seg Neutrophils % Seg Neuts % (Manual) Lymphocytes % (Manual) Monocytes % (Manual) Basophils % (Manual) Seg Neutrophils # Seg Neutrophils # Man Lymphocytes # (Manual) Monocytes # (Manual) Eosinophils # (Manual) Basophils # (Manual) PT INR D-Dimer ABG pH POC ABG pCO2 POC ABG pO2 ABG pO2 ABG HCO3 ABG O2 Saturation ABG Base Excess ABG Hemoglobin ABG Oxyhemoglobin ABG Potassium ABG Glucose Oxyhemoglobin Carboxyhemoglobin Sodium Potassium Chloride Carbon Dioxide BUN Creatinine Glucose POC Glucose 120 H 109 H 123 H Calcium Ferritin Total Bilirubin Alkaline Phosphatase Lactate Dehydrogenase Total Creatine Kinase CK-MB (CK-2) Rel Index Troponin T C-Reactive Protein Total Protein Albumin Prealbumin LDL Cholesterol Direct HDL Cholesterol Arterial Blood Glucose Arterial Blood Ionized Calcium Urine WBC (Auto) 04/15/20 04/16/20 04/16/20 17:35 06:00 11:29 WBC RBC Hgb Hct MCV MCH RDW Plt Count Lymph % (Auto) [place] % (Auto) Lymph # (Auto) [place] # (Auto) Seg Neutrophils % Seg Neuts % (Manual) Lymphocytes % (Manual) Monocytes % (Manual) Basophils % (Manual) Seg Neutrophils # Seg Neutrophils # Man Lymphocytes # (Manual) Monocytes # (Manual) Eosinophils # (Manual) Basophils # (Manual) PT INR D-Dimer ABG pH POC ABG pCO2 POC ABG pO2 ABG pO2 ABG HCO3 ABG O2 Saturation ABG Base Excess ABG Hemoglobin ABG Oxyhemoglobin ABG Potassium ABG Glucose Oxyhemoglobin Carboxyhemoglobin Sodium Potassium Chloride Carbon Dioxide BUN Creatinine Glucose POC Glucose 111 H 142 H 108 H Calcium Ferritin Total Bilirubin Alkaline Phosphatase Lactate Dehydrogenase Total Creatine Kinase CK-MB (CK-2) Rel Index Troponin T C-Reactive Protein Total Protein Albumin Prealbumin LDL Cholesterol Direct HDL Cholesterol Arterial Blood Glucose Arterial Blood Ionized Calcium Urine WBC (Auto) 04/17/20 04/17/20 04/17/20 05:09 06:53 06:53 WBC 14.2 H RBC Hgb 10.1 L Hct 31.5 L MCV MCH 27 L RDW 17.2 H Plt Count 643 H Lymph % (Auto) [place] % (Auto) Lymph # (Auto) [place] # (Auto) Seg Neutrophils % Seg Neuts % (Manual) Lymphocytes % (Manual) Monocytes % (Manual) Basophils % (Manual) Seg Neutrophils # Seg Neutrophils # Man Lymphocytes # (Manual) Monocytes # (Manual) Eosinophils # (Manual) Basophils # (Manual) PT INR D-Dimer ABG pH POC ABG pCO2 POC ABG pO2 ABG pO2 ABG HCO3 ABG O2 Saturation ABG Base Excess ABG Hemoglobin ABG Oxyhemoglobin ABG Potassium ABG Glucose Oxyhemoglobin Carboxyhemoglobin Sodium Potassium Chloride 97.7 L Carbon Dioxide 38 H BUN Creatinine < 0.2 L Glucose 126 H POC Glucose 131 H Calcium Ferritin Total Bilirubin Alkaline Phosphatase Lactate Dehydrogenase Total Creatine Kinase CK-MB (CK-2) Rel Index Troponin T C-Reactive Protein Total Protein Albumin Prealbumin LDL Cholesterol Direct HDL Cholesterol Arterial Blood Glucose Arterial Blood Ionized Calcium Urine WBC (Auto) 04/17/20 04/18/20 04/18/20 11:21 00:23 04:01 WBC 15.3 H RBC Hgb 10.1 L Hct 31.9 L MCV 82 L MCH 26 L RDW 17.2 H Plt Count 665 H Lymph % (Auto) 12.9 L [place] % (Auto) Lymph # (Auto) [place] # (Auto) 1.1 H Seg Neutrophils % 78.0 H Seg Neuts % (Manual) Lymphocytes % (Manual) Monocytes % (Manual) Basophils % (Manual) Seg Neutrophils # 11.9 H Seg Neutrophils # Man Lymphocytes # (Manual) Monocytes # (Manual) Eosinophils # (Manual) Basophils # (Manual) PT INR D-Dimer ABG pH POC ABG pCO2 POC ABG pO2 ABG pO2 ABG HCO3 ABG O2 Saturation ABG Base Excess ABG Hemoglobin ABG Oxyhemoglobin ABG Potassium ABG Glucose Oxyhemoglobin Carboxyhemoglobin Sodium Potassium Chloride Carbon Dioxide BUN Creatinine Glucose POC Glucose 140 H 125 H Calcium Ferritin Total Bilirubin Alkaline Phosphatase Lactate Dehydrogenase Total Creatine Kinase CK-MB (CK-2) Rel Index Troponin T C-Reactive Protein Total Protein Albumin Prealbumin LDL Cholesterol Direct HDL Cholesterol Arterial Blood Glucose Arterial Blood Ionized Calcium Urine WBC (Auto) 04/18/20 04/18/20 04/18/20 04:01 11:29 17:30 WBC RBC Hgb Hct MCV MCH RDW Plt Count Lymph % (Auto) [place] % (Auto) Lymph # (Auto) [place] # (Auto) Seg Neutrophils % Seg Neuts % (Manual) Lymphocytes % (Manual) Monocytes % (Manual) Basophils % (Manual) Seg Neutrophils # Seg Neutrophils # Man Lymphocytes # (Manual) Monocytes # (Manual) Eosinophils # (Manual) Basophils # (Manual) PT INR D-Dimer ABG pH POC ABG pCO2 POC ABG pO2 ABG pO2 ABG HCO3 ABG O2 Saturation ABG Base Excess ABG Hemoglobin ABG Oxyhemoglobin ABG Potassium ABG Glucose Oxyhemoglobin Carboxyhemoglobin Sodium Potassium Chloride 97.0 L Carbon Dioxide 38 H BUN Creatinine < 0.2 L Glucose 117 H POC Glucose 136 H 107 H Calcium Ferritin Total Bilirubin Alkaline Phosphatase Lactate Dehydrogenase Total Creatine Kinase CK-MB (CK-2) Rel Index Troponin T C-Reactive Protein Total Protein Albumin Prealbumin LDL Cholesterol Direct HDL Cholesterol Arterial Blood Glucose Arterial Blood Ionized Calcium Urine WBC (Auto) 04/18/20 04/19/20 04/19/20 23:19 06:51 06:51 WBC 12.2 H RBC Hgb 9.8 L Hct 31.1 L MCV 82 L MCH 26 L RDW 17.2 H Plt Count 549 H Lymph % (Auto) 6.5 L [place] % (Auto) Lymph # (Auto) 0.8 L [place] # (Auto) Seg Neutrophils % 86.7 H Seg Neuts % (Manual) Lymphocytes % (Manual) Monocytes % (Manual) Basophils % (Manual) Seg Neutrophils # 10.6 H Seg Neutrophils # Man Lymphocytes # (Manual) Monocytes # (Manual) Eosinophils # (Manual) Basophils # (Manual) PT INR D-Dimer ABG pH POC ABG pCO2 POC ABG pO2 ABG pO2 ABG HCO3 ABG O2 Saturation ABG Base Excess ABG Hemoglobin ABG Oxyhemoglobin ABG Potassium ABG Glucose Oxyhemoglobin Carboxyhemoglobin Sodium Potassium Chloride 97.8 L Carbon Dioxide 38 H BUN Creatinine < 0.2 L Glucose 123 H POC Glucose 127 H Calcium Ferritin Total Bilirubin Alkaline Phosphatase Lactate Dehydrogenase Total Creatine Kinase CK-MB (CK-2) Rel Index Troponin T C-Reactive Protein Total Protein Albumin Prealbumin LDL Cholesterol Direct HDL Cholesterol Arterial Blood Glucose Arterial Blood Ionized Calcium Urine WBC (Auto) 04/19/20 04/19/20 04/20/20 13:41 18:33 05:56 WBC RBC Hgb Hct MCV MCH RDW Plt Count Lymph % (Auto) [place] % (Auto) Lymph # (Auto) [place] # (Auto) Seg Neutrophils % Seg Neuts % (Manual) Lymphocytes % (Manual) Monocytes % (Manual) Basophils % (Manual) Seg Neutrophils # Seg Neutrophils # Man Lymphocytes # (Manual) Monocytes # (Manual) Eosinophils # (Manual) Basophils # (Manual) PT INR D-Dimer ABG pH POC ABG pCO2 POC ABG pO2 ABG pO2 ABG HCO3 ABG O2 Saturation ABG Base Excess ABG Hemoglobin ABG Oxyhemoglobin ABG Potassium ABG Glucose Oxyhemoglobin Carboxyhemoglobin Sodium Potassium Chloride Carbon Dioxide BUN Creatinine Glucose POC Glucose 116 H 124 H 130 H Calcium Ferritin Total Bilirubin Alkaline Phosphatase Lactate Dehydrogenase Total Creatine Kinase CK-MB (CK-2) Rel Index Troponin T C-Reactive Protein Total Protein Albumin Prealbumin LDL Cholesterol Direct HDL Cholesterol Arterial Blood Glucose Arterial Blood Ionized Calcium Urine WBC (Auto) 04/20/20 04/20/20 04/20/20 06:28 06:28 11:46 WBC RBC Hgb 10.2 L Hct 31.5 L MCV 82 L MCH 27 L RDW 17.1 H Plt Count 546 H Lymph % (Auto) 10.0 L [place] % (Auto) 9.8 H Lymph # (Auto) 1.1 L [place] # (Auto) 1.1 H Seg Neutrophils % 78.4 H Seg Neuts % (Manual) Lymphocytes % (Manual) Monocytes % (Manual) Basophils % (Manual) Seg Neutrophils # 8.5 H Seg Neutrophils # Man Lymphocytes # (Manual) Monocytes # (Manual) Eosinophils # (Manual) Basophils # (Manual) PT INR D-Dimer ABG pH POC ABG pCO2 POC ABG pO2 ABG pO2 ABG HCO3 ABG O2 Saturation ABG Base Excess ABG Hemoglobin ABG Oxyhemoglobin ABG Potassium ABG Glucose Oxyhemoglobin Carboxyhemoglobin Sodium Potassium Chloride 97.0 L Carbon Dioxide 38 H BUN Creatinine < 0.2 L Glucose 138 H POC Glucose 130 H Calcium Ferritin Total Bilirubin Alkaline Phosphatase Lactate Dehydrogenase Total Creatine Kinase CK-MB (CK-2) Rel Index Troponin T C-Reactive Protein Total Protein Albumin Prealbumin LDL Cholesterol Direct HDL Cholesterol Arterial Blood Glucose Arterial Blood Ionized Calcium Urine WBC (Auto) 04/20/20 04/21/20 04/21/20 23:31 05:55 05:55 WBC RBC Hgb 10.0 L Hct 31.1 L MCV 82 L MCH 26 L RDW 17.0 H Plt Count 535 H Lymph % (Auto) [place] % (Auto) 9.2 H Lymph # (Auto) 1.1 L [place] # (Auto) Seg Neutrophils % 75.4 H Seg Neuts % (Manual) Lymphocytes % (Manual) Monocytes % (Manual) Basophils % (Manual) Seg Neutrophils # Seg Neutrophils # Man Lymphocytes # (Manual) Monocytes # (Manual) Eosinophils # (Manual) Basophils # (Manual) PT INR D-Dimer ABG pH POC ABG pCO2 POC ABG pO2 ABG pO2 ABG HCO3 ABG O2 Saturation ABG Base Excess ABG Hemoglobin ABG Oxyhemoglobin ABG Potassium ABG Glucose Oxyhemoglobin Carboxyhemoglobin Sodium Potassium Chloride 95.0 L Carbon Dioxide 34 H BUN Creatinine < 0.2 L Glucose 125 H POC Glucose 116 H Calcium Ferritin Total Bilirubin Alkaline Phosphatase Lactate Dehydrogenase Total Creatine Kinase CK-MB (CK-2) Rel Index Troponin T C-Reactive Protein Total Protein Albumin Prealbumin LDL Cholesterol Direct HDL Cholesterol Arterial Blood Glucose Arterial Blood Ionized Calcium Urine WBC (Auto) 04/22/20 04/22/20 04/22/20 00:01 07:45 07:45 WBC RBC Hgb 10.0 L Hct 30.7 L MCV 81 L MCH 27 L RDW 17.1 H Plt Count 490 H Lymph % (Auto) [place] % (Auto) Lymph # (Auto) [place] # (Auto) Seg Neutrophils % Seg Neuts % (Manual) 75.0 H Lymphocytes % (Manual) 11.0 L Monocytes % (Manual) 9.0 H Basophils % (Manual) Seg Neutrophils # Seg Neutrophils # Man Lymphocytes # (Manual) 0.8 L Monocytes # (Manual) Eosinophils # (Manual) Basophils # (Manual) PT INR D-Dimer ABG pH POC ABG pCO2 POC ABG pO2 ABG pO2 ABG HCO3 ABG O2 Saturation ABG Base Excess ABG Hemoglobin ABG Oxyhemoglobin ABG Potassium ABG Glucose Oxyhemoglobin Carboxyhemoglobin Sodium Potassium Chloride 96.3 L Carbon Dioxide 40 H BUN Creatinine < 0.2 L Glucose 109 H POC Glucose 110 H Calcium Ferritin Total Bilirubin Alkaline Phosphatase Lactate Dehydrogenase Total Creatine Kinase CK-MB (CK-2) Rel Index Troponin T C-Reactive Protein Total Protein Albumin Prealbumin LDL Cholesterol Direct HDL Cholesterol Arterial Blood Glucose Arterial Blood Ionized Calcium Urine WBC (Auto) 04/23/20 04/23/20 04/23/20 04:28 04:28 04:28 WBC RBC 3.64 L Hgb 9.7 L Hct 29.4 L MCV 81 L MCH 27 L RDW 17.2 H Plt Count 527 H Lymph % (Auto) [place] % (Auto) 8.9 H Lymph # (Auto) [place] # (Auto) Seg Neutrophils % Seg Neuts % (Manual) Lymphocytes % (Manual) Monocytes % (Manual) Basophils % (Manual) Seg Neutrophils # Seg Neutrophils # Man Lymphocytes # (Manual) Monocytes # (Manual) Eosinophils # (Manual) Basophils # (Manual) PT INR D-Dimer ABG pH POC ABG pCO2 POC ABG pO2 ABG pO2 ABG HCO3 ABG O2 Saturation ABG Base Excess ABG Hemoglobin ABG Oxyhemoglobin ABG Potassium ABG Glucose Oxyhemoglobin Carboxyhemoglobin Sodium Potassium Chloride 96.4 L Carbon Dioxide 32 H D BUN Creatinine < 0.2 L Glucose 134 H POC Glucose Calcium Ferritin Total Bilirubin Alkaline Phosphatase Lactate Dehydrogenase Total Creatine Kinase CK-MB (CK-2) Rel Index Troponin T 0.151 H* C-Reactive Protein Total Protein Albumin Prealbumin LDL Cholesterol Direct HDL Cholesterol 29 L Arterial Blood Glucose Arterial Blood Ionized Calcium Urine WBC (Auto) 04/23/20 04/23/20 04/24/20 06:03 23:41 05:28 WBC RBC 3.56 L Hgb 9.5 L Hct 28.9 L MCV 81 L MCH 27 L RDW 17.4 H Plt Count 462 H Lymph % (Auto) [place] % (Auto) Lymph # (Auto) [place] # (Auto) Seg Neutrophils % Seg Neuts % (Manual) 80.0 H Lymphocytes % (Manual) Monocytes % (Manual) Basophils % (Manual) Seg Neutrophils # Seg Neutrophils # Man Lymphocytes # (Manual) Monocytes # (Manual) Eosinophils # (Manual) Basophils # (Manual) PT INR D-Dimer ABG pH POC ABG pCO2 POC ABG pO2 ABG pO2 ABG HCO3 ABG O2 Saturation ABG Base Excess ABG Hemoglobin ABG Oxyhemoglobin ABG Potassium ABG Glucose Oxyhemoglobin Carboxyhemoglobin Sodium Potassium Chloride Carbon Dioxide BUN Creatinine Glucose POC Glucose 132 H 117 H Calcium Ferritin Total Bilirubin Alkaline Phosphatase Lactate Dehydrogenase Total Creatine Kinase CK-MB (CK-2) Rel Index Troponin T C-Reactive Protein Total Protein Albumin Prealbumin LDL Cholesterol Direct HDL Cholesterol Arterial Blood Glucose Arterial Blood Ionized Calcium Urine WBC (Auto) 04/24/20 04/24/20 04/24/20 05:28 05:28 05:33 WBC RBC Hgb Hct MCV MCH RDW Plt Count Lymph % (Auto) [place] % (Auto) Lymph # (Auto) [place] # (Auto) Seg Neutrophils % Seg Neuts % (Manual) Lymphocytes % (Manual) Monocytes % (Manual) Basophils % (Manual) Seg Neutrophils # Seg Neutrophils # Man Lymphocytes # (Manual) Monocytes # (Manual) Eosinophils # (Manual) Basophils # (Manual) PT INR D-Dimer ABG pH POC ABG pCO2 POC ABG pO2 ABG pO2 ABG HCO3 ABG O2 Saturation ABG Base Excess ABG Hemoglobin ABG Oxyhemoglobin ABG Potassium ABG Glucose Oxyhemoglobin Carboxyhemoglobin Sodium Potassium Chloride 96.1 L Carbon Dioxide 40 H D BUN Creatinine < 0.2 L Glucose 115 H POC Glucose 109 H Calcium Ferritin Total Bilirubin Alkaline Phosphatase Lactate Dehydrogenase Total Creatine Kinase CK-MB (CK-2) Rel Index Troponin T 0.181 H* C-Reactive Protein Total Protein Albumin Prealbumin LDL Cholesterol Direct HDL Cholesterol Arterial Blood Glucose Arterial Blood Ionized Calcium Urine WBC (Auto) 04/24/20 04/24/20 04/25/20 11:17 18:23 00:12 WBC RBC Hgb Hct MCV MCH RDW Plt Count Lymph % (Auto) [place] % (Auto) Lymph # (Auto) [place] # (Auto) Seg Neutrophils % Seg Neuts % (Manual) Lymphocytes % (Manual) Monocytes % (Manual) Basophils % (Manual) Seg Neutrophils # Seg Neutrophils # Man Lymphocytes # (Manual) Monocytes # (Manual) Eosinophils # (Manual) Basophils # (Manual) PT INR D-Dimer ABG pH POC ABG pCO2 POC ABG pO2 ABG pO2 ABG HCO3 ABG O2 Saturation ABG Base Excess ABG Hemoglobin ABG Oxyhemoglobin ABG Potassium ABG Glucose Oxyhemoglobin Carboxyhemoglobin Sodium Potassium Chloride Carbon Dioxide BUN Creatinine Glucose POC Glucose 117 H 109 H 113 H Calcium Ferritin Total Bilirubin Alkaline Phosphatase Lactate Dehydrogenase Total Creatine Kinase CK-MB (CK-2) Rel Index Troponin T C-Reactive Protein Total Protein Albumin Prealbumin LDL Cholesterol Direct HDL Cholesterol Arterial Blood Glucose Arterial Blood Ionized Calcium Urine WBC (Auto) 04/25/20 04/25/20 04/25/20 06:34 06:34 11:28 WBC 11.7 H RBC Hgb 10.0 L Hct 31.7 L MCV 82 L MCH 26 L RDW 17.5 H Plt Count 564 H Lymph % (Auto) [place] % (Auto) Lymph # (Auto) [place] # (Auto) Seg Neutrophils % Seg Neuts % (Manual) 78.0 H Lymphocytes % (Manual) 10.0 L Monocytes % (Manual) 9.0 H Basophils % (Manual) Seg Neutrophils # Seg Neutrophils # Man 9.1 H Lymphocytes # (Manual) Monocytes # (Manual) 1.1 H Eosinophils # (Manual) Basophils # (Manual) PT INR D-Dimer ABG pH POC ABG pCO2 POC ABG pO2 ABG pO2 ABG HCO3 ABG O2 Saturation ABG Base Excess ABG Hemoglobin ABG Oxyhemoglobin ABG Potassium ABG Glucose Oxyhemoglobin Carboxyhemoglobin Sodium Potassium Chloride Carbon Dioxide 39 H BUN Creatinine < 0.2 L Glucose 103 H POC Glucose 112 H Calcium Ferritin Total Bilirubin Alkaline Phosphatase Lactate Dehydrogenase Total Creatine Kinase CK-MB (CK-2) Rel Index Troponin T C-Reactive Protein Total Protein Albumin Prealbumin LDL Cholesterol Direct HDL Cholesterol Arterial Blood Glucose Arterial Blood Ionized Calcium Urine WBC (Auto) 04/27/20 04/27/20 04/27/20 11:48 17:08 23:31 WBC RBC Hgb Hct MCV MCH RDW Plt Count Lymph % (Auto) [place] % (Auto) Lymph # (Auto) [place] # (Auto) Seg Neutrophils % Seg Neuts % (Manual) Lymphocytes % (Manual) Monocytes % (Manual) Basophils % (Manual) Seg Neutrophils # Seg Neutrophils # Man Lymphocytes # (Manual) Monocytes # (Manual) Eosinophils # (Manual) Basophils # (Manual) PT INR D-Dimer ABG pH POC ABG pCO2 POC ABG pO2 ABG pO2 ABG HCO3 ABG O2 Saturation ABG Base Excess ABG Hemoglobin ABG Oxyhemoglobin ABG Potassium ABG Glucose Oxyhemoglobin Carboxyhemoglobin Sodium Potassium Chloride Carbon Dioxide BUN Creatinine Glucose POC Glucose 124 H 118 H 122 H Calcium Ferritin Total Bilirubin Alkaline Phosphatase Lactate Dehydrogenase Total Creatine Kinase CK-MB (CK-2) Rel Index Troponin T C-Reactive Protein Total Protein Albumin Prealbumin LDL Cholesterol Direct HDL Cholesterol Arterial Blood Glucose Arterial Blood Ionized Calcium Urine WBC (Auto) 04/28/20 04/29/20 04/29/20 05:42 00:14 05:30 WBC RBC Hgb Hct MCV MCH RDW Plt Count Lymph % (Auto) [place] % (Auto) Lymph # (Auto) [place] # (Auto) Seg Neutrophils % Seg Neuts % (Manual) Lymphocytes % (Manual) Monocytes % (Manual) Basophils % (Manual) Seg Neutrophils # Seg Neutrophils # Man Lymphocytes # (Manual) Monocytes # (Manual) Eosinophils # (Manual) Basophils # (Manual) PT INR D-Dimer ABG pH POC ABG pCO2 POC ABG pO2 ABG pO2 ABG HCO3 ABG O2 Saturation ABG Base Excess ABG Hemoglobin ABG Oxyhemoglobin ABG Potassium ABG Glucose Oxyhemoglobin Carboxyhemoglobin Sodium Potassium Chloride Carbon Dioxide BUN Creatinine Glucose POC Glucose 122 H 115 H 123 H Calcium Ferritin Total Bilirubin Alkaline Phosphatase Lactate Dehydrogenase Total Creatine Kinase CK-MB (CK-2) Rel Index Troponin T C-Reactive Protein Total Protein Albumin Prealbumin LDL Cholesterol Direct HDL Cholesterol Arterial Blood Glucose Arterial Blood Ionized Calcium Urine WBC (Auto) 04/30/20 05/01/20 05/01/20 00:29 05:39 12:30 WBC RBC Hgb Hct MCV MCH RDW Plt Count Lymph % (Auto) [place] % (Auto) Lymph # (Auto) [place] # (Auto) Seg Neutrophils % Seg Neuts % (Manual) Lymphocytes % (Manual) Monocytes % (Manual) Basophils % (Manual) Seg Neutrophils # Seg Neutrophils # Man Lymphocytes # (Manual) Monocytes # (Manual) Eosinophils # (Manual) Basophils # (Manual) PT INR D-Dimer ABG pH POC ABG pCO2 POC ABG pO2 ABG pO2 ABG HCO3 ABG O2 Saturation ABG Base Excess ABG Hemoglobin ABG Oxyhemoglobin ABG Potassium ABG Glucose Oxyhemoglobin Carboxyhemoglobin Sodium Potassium Chloride Carbon Dioxide BUN Creatinine Glucose POC Glucose 106 H 109 H 108 H Calcium Ferritin Total Bilirubin Alkaline Phosphatase Lactate Dehydrogenase Total Creatine Kinase CK-MB (CK-2) Rel Index Troponin T C-Reactive Protein Total Protein Albumin Prealbumin LDL Cholesterol Direct HDL Cholesterol Arterial Blood Glucose Arterial Blood Ionized Calcium Urine WBC (Auto) 05/01/20 05/03/20 05/03/20 23:35 05:09 11:36 WBC RBC Hgb Hct MCV MCH RDW Plt Count Lymph % (Auto) [place] % (Auto) Lymph # (Auto) [place] # (Auto) Seg Neutrophils % Seg Neuts % (Manual) Lymphocytes % (Manual) Monocytes % (Manual) Basophils % (Manual) Seg Neutrophils # Seg Neutrophils # Man Lymphocytes # (Manual) Monocytes # (Manual) Eosinophils # (Manual) Basophils # (Manual) PT INR D-Dimer ABG pH POC ABG pCO2 POC ABG pO2 ABG pO2 ABG HCO3 ABG O2 Saturation ABG Base Excess ABG Hemoglobin ABG Oxyhemoglobin ABG Potassium ABG Glucose Oxyhemoglobin Carboxyhemoglobin Sodium Potassium Chloride Carbon Dioxide BUN Creatinine Glucose POC Glucose 116 H 117 H 116 H Calcium Ferritin Total Bilirubin Alkaline Phosphatase Lactate Dehydrogenase Total Creatine Kinase CK-MB (CK-2) Rel Index Troponin T C-Reactive Protein Total Protein Albumin Prealbumin LDL Cholesterol Direct HDL Cholesterol Arterial Blood Glucose Arterial Blood Ionized Calcium Urine WBC (Auto) 05/03/20 05/03/20 05/03/20 14:06 14:06 23:39 WBC 12.5 H RBC Hgb 10.0 L Hct 31.2 L MCV 80 L MCH 26 L RDW 17.6 H Plt Count 488 H Lymph % (Auto) [place] % (Auto) Lymph # (Auto) [place] # (Auto) Seg Neutrophils % Seg Neuts % (Manual) Lymphocytes % (Manual) Monocytes % (Manual) Basophils % (Manual) Seg Neutrophils # Seg Neutrophils # Man Lymphocytes # (Manual) Monocytes # (Manual) Eosinophils # (Manual) Basophils # (Manual) PT INR D-Dimer ABG pH POC ABG pCO2 POC ABG pO2 ABG pO2 ABG HCO3 ABG O2 Saturation ABG Base Excess ABG Hemoglobin ABG Oxyhemoglobin ABG Potassium ABG Glucose Oxyhemoglobin Carboxyhemoglobin Sodium Potassium Chloride 95.4 L Carbon Dioxide 40 H BUN Creatinine < 0.2 L Glucose 121 H POC Glucose 107 H Calcium Ferritin Total Bilirubin Alkaline Phosphatase Lactate Dehydrogenase Total Creatine Kinase CK-MB (CK-2) Rel Index Troponin T C-Reactive Protein Total Protein Albumin Prealbumin LDL Cholesterol Direct HDL Cholesterol Arterial Blood Glucose Arterial Blood Ionized Calcium Urine WBC (Auto) 05/04/20 05/04/20 05/04/20 11:31 16:57 23:18 WBC RBC Hgb Hct MCV MCH RDW Plt Count Lymph % (Auto) [place] % (Auto) Lymph # (Auto) [place] # (Auto) Seg Neutrophils % Seg Neuts % (Manual) Lymphocytes % (Manual) Monocytes % (Manual) Basophils % (Manual) Seg Neutrophils # Seg Neutrophils # Man Lymphocytes # (Manual) Monocytes # (Manual) Eosinophils # (Manual) Basophils # (Manual) PT INR D-Dimer ABG pH POC ABG pCO2 POC ABG pO2 ABG pO2 ABG HCO3 ABG O2 Saturation ABG Base Excess ABG Hemoglobin ABG Oxyhemoglobin ABG Potassium ABG Glucose Oxyhemoglobin Carboxyhemoglobin Sodium Potassium Chloride Carbon Dioxide BUN Creatinine Glucose POC Glucose 113 H 126 H 126 H Calcium Ferritin Total Bilirubin Alkaline Phosphatase Lactate Dehydrogenase Total Creatine Kinase CK-MB (CK-2) Rel Index Troponin T C-Reactive Protein Total Protein Albumin Prealbumin LDL Cholesterol Direct HDL Cholesterol Arterial Blood Glucose Arterial Blood Ionized Calcium Urine WBC (Auto) 05/05/20 05/05/20 05/05/20 05:32 11:11 23:57 WBC RBC Hgb Hct MCV MCH RDW Plt Count Lymph % (Auto) [place] % (Auto) Lymph # (Auto) [place] # (Auto) Seg Neutrophils % Seg Neuts % (Manual) Lymphocytes % (Manual) Monocytes % (Manual) Basophils % (Manual) Seg Neutrophils # Seg Neutrophils # Man Lymphocytes # (Manual) Monocytes # (Manual) Eosinophils # (Manual) Basophils # (Manual) PT INR D-Dimer ABG pH POC ABG pCO2 POC ABG pO2 ABG pO2 ABG HCO3 ABG O2 Saturation ABG Base Excess ABG Hemoglobin ABG Oxyhemoglobin ABG Potassium ABG Glucose Oxyhemoglobin Carboxyhemoglobin Sodium Potassium Chloride Carbon Dioxide BUN Creatinine Glucose POC Glucose 109 H 124 H 119 H Calcium Ferritin Total Bilirubin Alkaline Phosphatase Lactate Dehydrogenase Total Creatine Kinase CK-MB (CK-2) Rel Index Troponin T C-Reactive Protein Total Protein Albumin Prealbumin LDL Cholesterol Direct HDL Cholesterol Arterial Blood Glucose Arterial Blood Ionized Calcium Urine WBC (Auto) 05/06/20 05:34 WBC RBC Hgb Hct MCV MCH RDW Plt Count Lymph % (Auto) [place] % (Auto) Lymph # (Auto) [place] # (Auto) Seg Neutrophils % Seg Neuts % (Manual) Lymphocytes % (Manual) Monocytes % (Manual) Basophils % (Manual) Seg Neutrophils # Seg Neutrophils # Man Lymphocytes # (Manual) Monocytes # (Manual) Eosinophils # (Manual) Basophils # (Manual) PT INR D-Dimer ABG pH POC ABG pCO2 POC ABG pO2 ABG pO2 ABG HCO3 ABG O2 Saturation ABG Base Excess ABG Hemoglobin ABG Oxyhemoglobin ABG Potassium ABG Glucose Oxyhemoglobin Carboxyhemoglobin Sodium Potassium Chloride Carbon Dioxide BUN Creatinine Glucose POC Glucose 121 H Calcium Ferritin Total Bilirubin Alkaline Phosphatase Lactate Dehydrogenase Total Creatine Kinase CK-MB (CK-2) Rel Index Troponin T C-Reactive Protein Total Protein Albumin Prealbumin LDL Cholesterol Direct HDL Cholesterol Arterial Blood Glucose Arterial Blood Ionized Calcium Urine WBC (Auto) Chest x-ray: pending Allied health notes reviewed: nursing
[2020-05-06] MEDS: traMADol 50 MG TAB PO PRN ×2 (16:08→16:12)
--- NOTE | 2020-05-06 16:51 | Progress Note ---
Assessment and Plan --Acute hypoxic hypercapnic respiratory failure; Intubated on mechanical ventilation. Etiology secondary to sepsis, ALS, multifocal pneumonia (Covid negative). S/p trach placement 03/07/20 --Status post cardiac arrest on 02/25, cardiac hernandez now stable --Dysphagia, status post PEG placement for tube feeding --ALS; Chronic Continue to provide supportive care --Elevated D-dimers; CTA chest, lower extremity venous Doppler both are negative Lovenox for DVT prophylaxis --Bilateral pneumonia; probably community-acquired Completed treatment ID recommendations appreciated --Sepsis secondary to pneumonia s/p empiric antibiotic --Elevated troponin; Serial cardiac enzymes, serial EKGs Echocardiogram, cardiology consult if needed --Hypernatremia Trend sodium Free water via feeding tube --Abdominal distention due to bladder outlet obstruction, resolved CT abdomen showed bladder outlet obstruction, urology consulted s/p drake placement by urology on 03/09 --Hypotension possibly from septic shock and bladder outlet obstruction improved following placing drake --Hypernatremia due to hypovolumia, resolved free water with TF --Constipation; Patient already received Dulcolax suppository and Colace Received milk of magnesia, with relief --DVT prophylaxis; Lovenox Brief history: 59-year-old male patient with significant past medical history of ALS, presented to ED with 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 Patient was on a trilogy machine for breathing 18/11. EMS arrived, patient had O2 sats in the 80s. EMS attempted to place patient on their CPAP machine, however patient did not tolerate. Patient was admitted to the ICU with diagnosis of acute hypoxic respiratory failure and placed on BiPAP. Patient initially tolerated but later deteriorated with respiratory status. CTA chest showed no PE but significant for bilateral pneumonia. Doppler ultrasound also negative for DVT. COVID-19 test ordered and negative. Due to persistent hypoxia and asystolic/V. fib cardiac arrest, patient was intubated on 02/26/2020 at 1500. Patient now on mechanical ventilation in the ICU s/p trach placement and now unable to wean off from the mechanical ventilation. Patient now status post PEG placement for tube feeding. Patient most likely need long-term placement -LTAC versus SNF Daily course: 02/25/2020. CTA of the chest reveals no PE but does illustrate the bilateral pneumonia. Doppler ultrasound also negative for DVT. Blood cultures are pe nding. Await COVID-19 testing. Patient currently requiring BiPAP IPAP 24/EPAP 6 with FiO2 of 25%. Continue O2 and BiPAP as clinically indicated. ID and pulmonary consulted. 02/26/2020. Blood cultures are negative x48 hours and Covid testing negative as well. Continue antibiotics per ID recommendations for community-acquired bilateral pneumonia. Cardiology consultation for elevated troponin. Check echocardiogram. 02/27/2020. Events of yesterday noted with asystole following V. fib arrest. Patient currently on AC mode rate 20, tidal volume 400, FiO2 50% and a PEEP of 6. Follow-up echocardiogram for elevated troponin. Cardiology suspects NSTEMI Type 2 in the setting of acute resp failure. Chest CTA and BLE Dopplers neg. we will discontinue Decadron given the Covid PCR is negative. 02/28/2020. I spoke with the sister Felisa Eli who is the power of finance attorney regarding advanced directives and she instructed me that she would like to continue with aggressive care at this time. I informed her of the guarded prognosis and high mortality/morbidity and she voiced understanding. Patient currently with AC mode ventilation rate 18, tidal volume 400, FiO2 40% and a PEEP of 6. Continue antibiotics for pneumonia. ID previously consulted. Also consult neurology with regards to ALS. 02/29/2020; patient is intubated and on CPAP patient is alert and oriented. Patient has ALS. Dr. Álvarez spoke with his sister and she wants aggressive care. Continue antibiotics for pneumonia. Neurology consulted for ALS. Prognosis poor 03/01/2020; patient is intubated and on CPAP, patient is alert and oriented. I spoke with his 2 sisters about the management plan. 03/02/2020; patient is intubated and on CPAP. Patient was alert and oriented. I spoke with Dr. mohr and he thinks patient may need mechanical ventilation, likely his disease progressed. Dr. Flowers did debridement this morning. 03/03/2020; patient is intubated and on CPAP, patient was on trilogy and BiPAP at home. Patient has ALS. on spontaneous breathing trial. Patient is alert and oriented but quadriplegic. Patient has severe bilateral pneumonia and is on cefepime and Vanco, ID is following. Patient has sacral decubitus ulcer and debridement was done by Dr. Flowers and there is no osteomyelitis. 03/05. Patient still on broad-spectrum antibiotics. Status post sacral decubitus ulcer debridements-no osteomyelitis. Patient is on AC 25/400/30% PEEP 5. No blood gas results today. 03/06. Plan for tracheostomy by surgery. Still remains intubated. Labs reviewed-sodium 150. Started on free water 200 every 8hr. trend sodium. 03/07: s/p trach placement today, patient placed back on mechanical ventilation with trach. Plan to resume tube feeding with NG tube. Continue to monitor vitals, monitor BMP. 03/08: Patient noted to have distended abdomen with low urinary output. Obtain bladder scan rule out urine retention, UA and urine culture, continue to follow clinically. 03/09: Patient noted to have low blood pressure with SBP as low as 70s. Ordered for 500 mils normal saline bolus. CT abdomen showed bladder outlet obstruction, urology consulted. 03/10: placed on drake by urology o/n, improved urine outpt. cont to monitor BMP. resuded TF - cont free water with TF. wean off from vent as tolerated. 03/11: Vitals stable. cont TF, wean off from vent as tolerated. start on 1/2 NS for hypernatremia - follow BMP 03/12: wean off vent as tolerated, plan for speech eval, cont Tf for now, cont iv fluid 03/13: unable to wean off from vent, unable to do speech therapy eval. will need PEG tube, cont supportive care for now, cont NG tube feeding 03/14: consulted GI for PEg placemnet, cont supportive care. remains on vent at night 03/15: Discussed with GI, plan for PEG tube placement possibly tomorrow. Continue supportive care and wean off from vent as tolerated. Hold Lovenox dose tonight. 03/16: family didnot consent for PEG placement yesterday. I spoke with the megan rodriguez today and she is now agreeable for PEG tube. I explained the necessity of the procedure with RN to the patient also and he nodded started on tube feeding, for the procedure. will cont supportive care. planned for PEG tube placement tomorrow. 03/17: s/p PEG placement today, patient tolerated well, cont supportive care 03/18: Started on tube feeding with new PEG tube, continue to wean off vent as tolerated 03/19: cont to monitor with supportive care, wean off vent as tolerated 03/20: Continue to wean off vent as tolerated -but failing weaning trial. Still requiring vent support at night. Currently on PEG tube for tube feed. 03/21. Pt with PSV trials with FiO@ 30%, PEEP 6, PS 10. Currently on PEG tube for tube feed. 03/22/2020. Continue PSV trials per pulmonary. Continue bronchodilators. Patient tolerating tube feedings. Continue Robinul for secretion control. 03/23/2020. Continue PSV trials per pulmonary. Continue bronchodilators. Continue Scopolamine and Robinul for secretion control. Trach care/airway management. Mobility protocols for pressure ulcer prophylaxis. LTAC evaluation per case management 03/24/2020. Continue PSV trials with current settings pressure support 10, PEEP 6 and FiO2 30%. Continue bronchodilators/nebulizer. Continue Scopolamine and Robinul for secretion control. Trach care/airway management. Mobility protocols for pressure ulcer prophylaxis. LTAC evaluation per case management 03/25/2020. Pulmonary to proceed with T-piece trials today. Continue bronchodilators/nebulizer. Continue Scopolamine and Robinul for secretion control. Trach care/airway management. Mobility protocols for pressure ulcer prophylaxis. 03/26/2020. Patient currently with PSV 10/6 at FiO2 of 30%. Continue weaning and T-piece trials per protocol. Continue bronchodilators/nebulizer. Continue Scopolamine and Robinul for secretion control. Trach care/airway management. Mobility protocols for pressure ulcer prophylaxis. Continue tube feeding with aspiration precautions. 03/27/2020. Patient currently with PSV 10/6 at FiO2 of 30%. Continue weaning and T-piece trials per protocol. Continue bronchodilators/nebulizer. Continue Scopolamine and Robinul for secretion control. Trach care/airway management. Mobility protocols for pressure ulcer prophylaxis. Continue tube feeding with aspiration precautions. 03/28. Had temp 100.7F. He has been off antibiotics. Will send blood culture, ua, urine culture and chest xray. Had chest pain overnight and trop was elevated as well. Cardiology to evaluate 03/29. Has back pain due to position. He mentions his chest pain is positional. Has no other complaints. Still on mechanical ventilation 03/30. No chest pain today. Labs reviewed. Discussed chest pain with cardiology and team advised no further work up at this time. Can follow up with cardiology in the office after hospitalization 03/31. Lidocaine patch for lower back pain. 04/01. Discharge planning underway. CM notes reviewed. Discussed with daughter 04/02. CM trying to arrange discharge. Continue PSV trials. Discussed with patients significant other 04/04/2020; CM is working for discharge arrangement. Continue PSV trials. 04/05/2020; patient was seen and evaluated this morning and no change from baseline. Continue with PSV trials. Follow with toilet and laundry soap supervisor for discharge planning. 04/06/2020;patient was seen and evaluated this morning and no change from baseline. Continue with PSV trials. Follow with toilet and laundry soap supervisor for discharge planning. 04/07/2020; patient was seen and evaluated this morning and no change from baseline. Continue with PSV trials. Follow with toilet and laundry soap supervisor for discharge planning. 04/08/2020; patient is vent dependent. Discharge is per toilet and laundry soap supervisor. 04/09/2020 patient is vent dependent, possible LTAC placement 04/10/2020; tracheostomy on vent, vent dependent pending LTAC placement 04/11/2020; clinically no change, tracheostomy on ventilatory support, wean as tolerated, awaiting placement 04/12/2020; remains on ventilatory support, unable to wean, patient wants to see a speech therapist for sound box However we cannot try that as long as he is on ventilatory support, once he is weaned off vent We will consult speech therapist, plan of care reviewed with the patient and his nurse 04/14/2020; clinically no change, on ventilatory support, complains of constipation, milk of magnesia Closely monitor the patient and adjust the management as needed 04/15/2020; patient has some oral thrush on the tongue, will give Magic mouthwash/nystatin swish and spit Wean off vent as tolerated 04/16 patient is alert and oriented, unable to comprehend what he is trying to tell but appears to complain of some pain, no acute events overnight, all interdisciplinary notes reviewed. Waiting for LTAC versus custodial facility placement 04/17/2020. Continue supportive care with mechanical ventilation. Patient currently on AC mode rate 10, tidal volume 400 FiO2 30% with a PEEP of 6. Discharge planning per case management. 04/18/2020. Patient remains on mechanical ventilation AC mode rate 10, tidal volume 400, FiO2 30% and PEEP of 6. Continue spontaneous breathing trials as tolerated. Previously, patient was considered for discharge home with skilled staff providing care for 12 hours 7 days/week. Continue discussed with case management discharge planning. 04/19/20. Patient remains on mechanical ventilation AC mode rate 10, tidal volume 400, FiO2 30% and PEEP of 6. Continue spontaneous breathing trials as tolerated. 04/20/2020. Patient remains on mechanical ventilation AC mode rate 10, tidal volume 400, FiO2 30% and PEEP of 6. Continue spontaneous breathing trials as tolerated. 04/21/2020. Patient remains on mechanical ventilation AC mode rate 10, tidal volume 400, FiO2 30% and PEEP of 6. Continue tracheostomy care, secretion control and airway management. Continue spontaneous breathing trials as tolerated. 04/22/2020. Patient remains on mechanical ventilation AC mode rate 10, tidal volume 400, FiO2 30% and PEEP of 6. Continue tracheostomy care, secretion control and airway management. Continue spontaneous breathing trials as tolera milana. 04/23/2020. Patient on mechanical ventilation AC mode rate 18, tidal volume 450, FiO2 30% and PEEP of 6. Continue tracheostomy care, secretion control and airway management. Continue spontaneous breathing trials as tolerated. Continue Robinul and scopolamine for secretions. Continue baclofen. 04/24/2020. Patient remains on AC mode ventilation rate 10, tidal volume 400, FiO2 30% and PEEP of 6. Continue tracheostomy care, secretion control and airway management. Continue spontaneous breathing trials as tolerated. Continue Robinul and scopolamine for secretions. Continue baclofen. Continue Xanax for anxiety and Ambien for sleep. Await case management follow-up with regards to discharge planning. 04/25/2020. Patient remains on AC mode ventilation rate 10, tidal volume 400, FiO2 30% and PEEP of 6. Continue tracheostomy care, secretion control and airway management. Continue spontaneous breathing trials as tolerated. Continue Robinul and scopolamine for secretions. Continue baclofen. Continue Xanax for anxiety and Ambien for sleep. Await case management follow-up with regards to discharge planning. 04/26. Patient remains on AC mode ventilation rate 10, tidal volume 400, FiO2 30% and PEEP of 6. Continue tracheostomy care, secretion control and airway management. Continue spontaneous breathing trials as tolerated. Continue Robinul and scopolamine for secretions. Continue baclofen. Continue Xanax for anxiety and Ambien for sleep. Await case management follow-up with regards to discharge planning. 04/27. Patient remains on AC mode ventilation rate 10, tidal volume 400, FiO2 30% and PEEP of 6. Continue tracheostomy care, secretion control and airway management. Continue spontaneous breathing trials as tolerated. Continue Robinul and scopolamine for secretions. Continue baclofen. Continue Xanax for anxiety and Ambien for sleep. Await case management follow-up with regards to discharge planning. 04/28/20 no acute events overnight, remains vent dependent, cardiology and pulmonary notes reviewed 04/29 remains intubated via tracheostomy, no acute events 04/30 no acute events overnight, cardiology note reviewed, remains vent dependent, discharge planning per case management 05/01 stable. cardiology and pulmonary notes reviewed. D/C acu-checks 05/02 - todate: Clinically stable, CM working on placement. Continue supportive care. Subjective Date of service: 05/06/20 Principal diagnosis: Ac on Ch Hypercapnic & hypoxemic Resp Failure; Severe Sepsis; Jamar PNA; ALS Interval history: Patient seen and examined Remains on trach tube Discussed with RN at the bedside Vitals reviewed -BP stable Tolerating tube feeding with PEG tube Objective - Exam Narrative Exam: GENERAL: Awake. Intubated with trach tube HEAD: No signs of head trauma. EYES: Pupils are equal. Extraocular motions intact. EARS: Hearing grossly intact. MOUTH: Oropharynx is normal. NECK: No adenopathy, no JVD. CHEST: Coarse breath sounds bilaterally CARDIAC: Regular rate and rhythm. S1 and S2, without murmurs, gallops, or rubs. VASCULAR: No Edema. Peripheral pulses normal and equal in all extremities. ABDOMEN: Soft, non tender and nondistended. Bowel Sounds normal. PEG in place NEUROLOGIC EXAM: Awake, paraplegic SKIN: No obvious lesions - Constitutional Vitals: Vital Signs - 12hr 05/06/20 05/06/20 05/06/20 04:57 05:00 06:00 Temperature Pulse Rate 120 H 120 H 107 H Pulse Rate [ From Monitor] Respiratory 20 11 L Rate Blood Pressure 94/58 114/86 100/58 O2 Sat by Pulse 98 96 97 Oximetry O2 Sat by Pulse Oximetry [ Assessment] 05/06/20 05/06/20 05/06/20 07:00 08:00 09:00 Temperature 98.5 F Pulse Rate 97 H 109 H 103 H Pulse Rate [ From Monitor] Respiratory 12 14 11 L Rate Blood Pressure 111/69 121/74 101/61 O2 Sat by Pulse 96 97 96 Oximetry O2 Sat by Pulse 99 Oximetry [ Assessment] 05/06/20 05/06/20 05/06/20 09:36 10:00 10:26 Temperature Pulse Rate 116 H 109 H Pulse Rate [ From Monitor] Respiratory 19 Rate Blood Pressure 101/68 101/68 O2 Sat by Pulse 99 98 Oximetry O2 Sat by Pulse Oximetry [ Assessment] 05/06/20 05/06/20 05/06/20 11:00 12:00 13:00 Temperature 98.7 F Pulse Rate 108 H 109 H 109 H Pulse Rate [ 111 H From Monitor] Respiratory 14 14 22 Rate Blood Pressure 103/74 96/70 94/78 O2 Sat by Pulse 98 98 98 Oximetry O2 Sat by Pulse Oximetry [ Assessment] 05/06/20 14:00 Temperature Pulse Rate 108 H Pulse Rate [ From Monitor] Respiratory 13 Rate Blood Pressure 98/77 O2 Sat by Pulse 96 Oximetry O2 Sat by Pulse Oximetry [ Assessment] - Labs CBC & Chem 7: 05/07/20 04:43 05/03/20 14:06 Labs: Abnormal lab results 05/05/20 05/06/20 Range/Units 23:57 05:34 POC Glucose 119 H 121 H (70-105) mg/dL HEART Score - HEART Score Troponin: Troponin T 0.181 ng/mL (0.00-0.029) H* 04/24/20 05:28
[2020-05-06] MEDS: SENNOSIDES 8.6 MG TAB PO SCH (22:20)
[2020-05-06] MEDS: ZOLPIDEM 5 MG TAB PO PRN (22:20)
[2020-05-06] MEDS: ENOXAPARIN 40 MG/0.4 ML INJ SUB-Q SCH (22:21)
[2020-05-07] MEDS ORDERED: LORazepam 2 MG/ML VIAL IV ONE (03:24)
[2020-05-07 05:50] LABS: Basophils # (Auto) 0.1 K/mm3 (0.0-0.1); Basophils % (Auto) 0.9 % (0.0-1.8); Eosinophils # (Auto) 0.4 K/mm3 (0.0-0.4); Eosinophils % (Auto) 3.8 % (0.0-4.3); Hematocrit 31.9 % (35.5-45.6); Hemoglobin 10.1 gm/dl (11.8-15.2); Lymphocytes # (Auto) 1.7 K/mm3 (1.2-5.4); Lymphocytes % (Auto) 17.3 % (13.4-35.0); Mean Corpuscular HGB Conc 32 % (32-34); Mean Corpuscular Volume 81 fl (84-94); Monocytes # (Auto) 0.9 K/mm3 (0.0-0.8); Monocytes % (Auto) 8.6 % (0.0-7.3); Platelet Count 506 K/mm3 (140-440); Red Blood Count 3.97 M/mm3 (3.65-5.03); Red Cell Distribution Width 17.6 % (13.2-15.2)
[2020-05-07] MEDS: MORPHINE 2 MG/1 ML INJ IV PRN ×5 (06:42→23:16)
[2020-05-07] MEDS: BACLOFEN 10 MG TAB PO SCH ×2 (11:22→22:16)
[2020-05-07] MEDS: METOPROLOL TARTRATE 25 MG TAB PO SCH ×2 (11:22→22:16)
[2020-05-07] MEDS: TAMSULOSIN 0.4 MG CAP PO SCH (11:22)
[2020-05-07] MEDS: ASPIRIN EC 81 MG TAB PO SCH (11:23)
[2020-05-07] MEDS: PREGABALIN 75 MG CAP PO SCH ×2 (11:23→22:16)
[2020-05-07] MEDS: LANSOPRAZOLE 30 MG SOLUTAB FEEDTUBE SCH (11:23)
[2020-05-07] MEDS: DOCUSATE SODIUM 100 MG/10 ML ORAL LIQD FEEDTUBE SCH ×2 (11:24→22:16)
[2020-05-07] MEDS: GLYCOPYRROLATE 1 MG TAB PO SCH ×3 (11:24→22:21)
[2020-05-07] MEDS: SODIUM HYPOCHLORITE, DAKIN'S 1/2 STRENGTH (0.25%) 473 ML TOPICAL SOLN TP SCH (11:25)
[2020-05-07] MEDS: MAGIC MOUTHWASH 30ML PO SCH ×3 (11:25→22:18)
[2020-05-07] MEDS: LIDOCAINE 5% 1 EACH PATCH TD SCH (11:28)
[2020-05-07] MEDS: ALPRAZolam 0.5 MG TAB PO PRN ×2 (15:02→22:16)
--- NOTE | 2020-05-07 16:15 | Progress Note ---
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 Respiratory Failure Severe Sepsis with Shock Bilateral Pneumonia (Possible aspiration) History of ALS on Trilogy Oropharyngeal Dysphagia PUI-COVID Acute toxic metabolic encephalopathy Elevated D-dimer Elevated troponin possibly type 2 ischemia - no new issues, discharge planning still ongoing for home ventilator - remains ventilator dependent; refusing SBT's at time and not tolerating when tried - continue care as below; - continue home meds re: chronic pain (Baclofen, Lyrica) - continue daily SBT's as tolerated; t-piece trial attempts as tolerated (PSV if fails) - repeat CXR prn +/- bronchoscopy for mucus plugging / large volume atelectasis - continue psychoactive meds for anxiolysis - continue Robinul & scopolamine for secretion control - prn electrolytes and optimize K+ & Mg 2+ for best respiratory muscle function - wound care per RN/WCN - wean supplemental oxygen for target O2 sat's > 90% acutely - bronchodilators with pulmonary hygiene per RT - VAP bundle addressed - continue lung protective strategies - continue bronchodilators with pulmonary hygiene per RT - wean per pulmonary driven protocols otherwise - sedation prn for target RASS 0 to -1 - s/p empiric antiinfectives per ID rec's (Rocephin and Zithromax) - s/p COVID-19 isolation (Airborne & Contact) - s/p Dexamethasone - enteral nutrition at goal rate as tolerated - accuchecks with glycemic control per SSI (While critically ill target blood glucose of 140-180 mg/dL; avoid hypoglycemia) - avoid nephrotoxins, renally dose all medications - avoid benzodiazepine's, reduce the possibility of delirium - prn analgesia per CPOT score - Maintenance of sleep-wake cycle, avoid delirium - aspiration precautions - G.I. & VTE prophylaxis - PT/OT/ROM exercises - mobility protocols for pressure ulcer prophylaxis - Monitor hemodynamics closely - continue other care per attending / other consultants - discharge planning ongoing concurrently .... Re-evaluate in am & prn CONDITION: CRITICAL PROGNOSIS: GUARDED CODE STATUS: FULL CODE The high probability of a clinically significant, sudden or life-threatening deterioration of the [respiratory, cardiovascular & neurologic] system(s) required my full and direct attention, intervention and personal management. The aggregate critical care time was [35] minutes without overlap. Time includes spent on; [x] Data Review and interpretation [x] Patient assessment and monitoring of vital signs [x] Documentation [x] Medication orders and management Subjective Date of service: 05/07/20 Principal diagnosis: Ac on Ch Hypercapnic & hypoxemic Resp Failure; Severe Sepsis; Jamar PNA; ALS Interval history: Patient is seen today for: Acute on Chronic Hypercapnic & hypoxemic Respiratory Failure; Severe Sepsis with Shock; Bilateral Pneumonia (Possible aspiration); History of ALS on Trilogy; PUI-COVID; Acute toxic metabolic encephalopathy Seen and examined at bedside; 24hour events reviewed; nursing and respiratory care staff consulted; no adverse overnight events reported to me; resting in bed; remains on MVS; denies acute chest pains or palpitations; No N/V/F/C Objective Vital Signs - 12hr 05/07/20 05/07/20 05/07/20 04:20 04:35 05:01 Pulse Rate 111 H 101 H 116 H Respiratory 11 L Rate Blood Pressure 102/65 110/70 O2 Sat by Pulse 97 97 Oximetry O2 Sat by Pulse Oximetry [ Assessment] 05/07/20 05/07/20 05/07/20 06:00 08:00 08:39 Pulse Rate 112 H 120 H Respiratory 15 Rate Blood Pressure 117/73 113/68 O2 Sat by Pulse 96 97 Oximetry O2 Sat by Pulse 97 Oximetry [ Assessment] 05/07/20 05/07/20 05/07/20 10:00 12:00 16:02 Pulse Rate 97 H 108 H Respiratory Rate Blood Pressure 112/76 112/78 O2 Sat by Pulse 97 97 97 Oximetry O2 Sat by Pulse 97 Oximetry [ Assessment] Constitutional: no acute distress, other (thin middle aged male with normal respiratory effort at rest on MVS) Eyes: non-icteric ENT: oropharynx moist, other (S/P Tracheostomy) Neck: supple, no lymphadenopathy, no JVD Effort: mildly labored Ascultation: Bilateral: diminished breath sounds, rhonchi (scant in bases) Percussion: Bilateral: not dull Cardiovascular: regular rate and rhythm, other (S1,S2, no murmurs) Gastrointestinal: normoactive bowel sounds, soft, non-tender, non-distended, other (+ distended but non tender suprapubis) Integumentary: normal, decubitus ulcer (sacral / gluteal) Extremities: no cyanosis, no edema, pulses normal, other (atrophic looking limbs) Neurologic: pupils equal and round, other (motor strength in extremities 1-2/5, awake, alert, mouths words to make needs known) Psychiatric: mood appropriate, affect normal CBC and BMP: 05/07/20 04:43 05/09/20 16:06 ABG, PT/INR, D-dimer: ABG ABG pH 7.371 (7.320-7.450) 03/08/20 12:34 POC ABG pCO2 63.1 mmHg (32.0-48.0) H 03/08/20 12:34 ABG pCO2 60.1 mm Hg 03/06/20 04:34 POC ABG pO2 90.5 mmHg (83-108) 03/08/20 12:34 ABG pO2 88.6 mm Hg (80.0-90.0) 03/06/20 04:34 POC ABG HCO3 35.7 03/08/20 12:34 ABG O2 Saturation 97.0 % (95.0-99.0) 03/06/20 04:34 PT/INR, D-dimer PT 15.6 Sec. (12.2-14.9) H 02/24/20 09:19 INR 1.21 (0.87-1.13) H 02/24/20 09:19 D-Dimer 1311.96 ng/mlDDU (0-234) H 02/24/20 09:19 Abnormal lab findings: Abnormal Labs 02/24/20 02/24/20 02/24/20 09:19 09:19 09:19 WBC 20.2 H RBC 5.05 H Hgb Hct MCV MCH RDW 15.3 H Plt Count Lymph % (Auto) [place] % (Auto) Lymph # (Auto) [place] # (Auto) Seg Neutrophils % Seg Neuts % (Manual) 86.0 H Lymphocytes % (Manual) 1.0 L Monocytes % (Manual) Basophils % (Manual) Seg Neutrophils # Seg Neutrophils # Man 17.4 H Lymphocytes # (Manual) 0.2 L Monocytes # (Manual) Eosinophils # (Manual) Basophils # (Manual) PT 15.6 H INR 1.21 H D-Dimer 1311.96 H ABG pH POC ABG pCO2 POC ABG pO2 ABG pO2 ABG HCO3 ABG O2 Saturation ABG Base Excess ABG Hemoglobin ABG Oxyhemoglobin ABG Potassium ABG Glucose Oxyhemoglobin Carboxyhemoglobin Sodium 135 L Potassium 3.2 L Chloride 92.2 L Carbon Dioxide BUN 6 L Creatinine < 0.2 L Glucose 124 H POC Glucose Calcium Ferritin Total Bilirubin 2.30 H Alkaline Phosphatase 132 H Lactate Dehydrogenase Total Creatine Kinase CK-MB (CK-2) Rel Index Troponin T 0.080 H C-Reactive Protein Total Protein Albumin 3.6 L Prealbumin LDL Cholesterol Direct 41 L HDL Cholesterol Arterial Blood Glucose Arterial Blood Ionized Calcium Urine WBC (Auto) 02/24/20 02/24/20 02/24/20 09:19 09:58 10:01 WBC RBC Hgb Hct MCV MCH RDW Plt Count Lymph % (Auto) [place] % (Auto) Lymph # (Auto) [place] # (Auto) Seg Neutrophils % Seg Neuts % (Manual) Lymphocytes % (Manual) Monocytes % (Manual) Basophils % (Manual) Seg Neutrophils # Seg Neutrophils # Man Lymphocytes # (Manual) Monocytes # (Manual) Eosinophils # (Manual) Basophils # (Manual) PT INR D-Dimer ABG pH 7.176 L* POC ABG pCO2 POC ABG pO2 ABG pO2 91.2 H ABG HCO3 ABG O2 Saturation ABG Base Excess -4.6 L ABG Hemoglobin ABG Oxyhemoglobin ABG Potassium ABG Glucose Oxyhemoglobin 92.6 L Carboxyhemoglobin Sodium Potassium Chloride Carbon Dioxide BUN Creatinine Glucose POC Glucose Calcium Ferritin 1715.0 H Total Bilirubin Alkaline Phosphatase Lactate Dehydrogenase 303 H Total Creatine Kinase CK-MB (CK-2) Rel Index Troponin T C-Reactive Protein 26.10 H Total Protein Albumin Prealbumin LDL Cholesterol Direct HDL Cholesterol Arterial Blood Glucose Arterial Blood Ionized Calcium Urine WBC (Auto) 02/24/20 02/24/20 02/24/20 11:52 13:45 19:35 WBC RBC Hgb Hct MCV MCH RDW Plt Count Lymph % (Auto) [place] % (Auto) Lymph # (Auto) [place] # (Auto) Seg Neutrophils % Seg Neuts % (Manual) Lymphocytes % (Manual) Monocytes % (Manual) Basophils % (Manual) Seg Neutrophils # Seg Neutrophils # Man Lymphocytes # (Manual) Monocytes # (Manual) Eosinophils # (Manual) Basophils # (Manual) PT INR D-Dimer ABG pH 7.051 L* 7.300 L POC ABG pCO2 POC ABG pO2 ABG pO2 94.7 H 75.1 L ABG HCO3 18.0 L ABG O2 Saturation 93.5 L ABG Base Excess -6.8 L -7.8 L ABG Hemoglobin 13.2 L 11.9 L ABG Oxyhemoglobin ABG Potassium ABG Glucose Oxyhemoglobin 91.0 L 92.7 L Carboxyhemoglobin Sodium Potassium Chloride Carbon Dioxide BUN Creatinine Glucose POC Glucose Calcium Ferritin Total Bilirubin Alkaline Phosphatase Lactate Dehydrogenase Total Creatine Kinase CK-MB (CK-2) Rel Index Troponin T 0.034 H D C-Reactive Protein Total Protein Albumin Prealbumin LDL Cholesterol Direct HDL Cholesterol Arterial Blood Glucose Arterial Blood Ionized Calcium Urine WBC (Auto) 02/25/20 02/25/20 02/25/20 04:00 04:00 12:26 WBC 22.9 H RBC Hgb Hct MCV 83 L MCH 27 L RDW Plt Count 468 H Lymph % (Auto) [place] % (Auto) Lymph # (Auto) [place] # (Auto) Seg Neutrophils % Seg Neuts % (Manual) 89.0 H Lymphocytes % (Manual) 7.0 L Monocytes % (Manual) Basophils % (Manual) Seg Neutrophils # Seg Neutrophils # Man 20.4 H Lymphocytes # (Manual) Monocytes # (Manual) Eosinophils # (Manual) Basophils # (Manual) PT INR D-Dimer ABG pH POC ABG pCO2 POC ABG pO2 ABG pO2 ABG HCO3 ABG O2 Saturation ABG Base Excess ABG Hemoglobin ABG Oxyhemoglobin ABG Potassium 2.6 L ABG Glucose 142 H Oxyhemoglobin Carboxyhemoglobin Sodium Potassium 3.2 L Chloride Carbon Dioxide 18 L BUN Creatinine 0.2 L Glucose 114 H POC Glucose Calcium Ferritin Total Bilirubin Alkaline Phosphatase Lactate Dehydrogenase Total Creatine Kinase CK-MB (CK-2) Rel Index Troponin T C-Reactive Protein Total Protein Albumin 3.5 L Prealbumin LDL Cholesterol Direct HDL Cholesterol Arterial Blood Glucose 142 H Arterial Blood Ionized Calcium Urine WBC (Auto) 02/26/20 02/26/20 02/26/20 15:58 17:00 23:43 WBC RBC Hgb Hct MCV MCH RDW Plt Count Lymph % (Auto) [place] % (Auto) Lymph # (Auto) [place] # (Auto) Seg Neutrophils % Seg Neuts % (Manual) Lymphocytes % (Manual) Monocytes % (Manual) Basophils % (Manual) Seg Neutrophils # Seg Neutrophils # Man Lymphocytes # (Manual) Monocytes # (Manual) Eosinophils # (Manual) Basophils # (Manual) PT INR D-Dimer ABG pH 7.502 H POC ABG pCO2 POC ABG pO2 213.6 H ABG pO2 ABG HCO3 ABG O2 Saturation ABG Base Excess ABG Hemoglobin ABG Oxyhemoglobin 99.2 H ABG Potassium 2.9 L ABG Glucose 160 H Oxyhemoglobin Carboxyhemoglobin 0.4 L Sodium Potassium Chloride Carbon Dioxide BUN Creatinine Glucose POC Glucose 189 H 120 H Calcium Ferritin Total Bilirubin Alkaline Phosphatase Lactate Dehydrogenase Total Creatine Kinase CK-MB (CK-2) Rel Index Troponin T C-Reactive Protein Total Protein Albumin Prealbumin LDL Cholesterol Direct HDL Cholesterol Arterial Blood Glucose 160 H Arterial Blood Ionized Calcium 4.5 L Urine WBC (Auto) 02/27/20 02/27/20 02/27/20 05:00 07:04 17:45 WBC RBC Hgb Hct MCV MCH RDW Plt Count Lymph % (Auto) [place] % (Auto) Lymph # (Auto) [place] # (Auto) Seg Neutrophils % Seg Neuts % (Manual) Lymphocytes % (Manual) Monocytes % (Manual) Basophils % (Manual) Seg Neutrophils # Seg Neutrophils # Man Lymphocytes # (Manual) Monocytes # (Manual) Eosinophils # (Manual) Basophils # (Manual) PT INR D-Dimer ABG pH 7.524 H POC ABG pCO2 POC ABG pO2 ABG pO2 ABG HCO3 ABG O2 Saturation ABG Base Excess ABG Hemoglobin ABG Oxyhemoglobin ABG Potassium 3.0 L ABG Glucose 143 H Oxyhemoglobin Carboxyhemoglobin Sodium Potassium Chloride Carbon Dioxide BUN Creatinine Glucose POC Glucose 154 H 175 H Calcium Ferritin Total Bilirubin Alkaline Phosphatase Lactate Dehydrogenase Total Creatine Kinase CK-MB (CK-2) Rel Index Troponin T C-Reactive Protein Total Protein Albumin Prealbumin LDL Cholesterol Direct HDL Cholesterol Arterial Blood Glucose 143 H Arterial Blood Ionized Calcium Urine WBC (Auto) 02/27/20 02/28/20 02/28/20 Unknown 00:21 04:15 WBC 18.7 H RBC Hgb Hct MCV MCH RDW Plt Count Lymph % (Auto) 8.7 L [place] % (Auto) Lymph # (Auto) [place] # (Auto) 1.2 H Seg Neutrophils % 84.6 H Seg Neuts % (Manual) Lymphocytes % (Manual) Monocytes % (Manual) Basophils % (Manual) Seg Neutrophils # 15.9 H Seg Neutrophils # Man Lymphocytes # (Manual) Monocytes # (Manual) Eosinophils # (Manual) Basophils # (Manual) PT INR D-Dimer ABG pH POC ABG pCO2 POC ABG pO2 ABG pO2 ABG HCO3 ABG O2 Saturation ABG Base Excess ABG Hemoglobin ABG Oxyhemoglobin ABG Potassium ABG Glucose Oxyhemoglobin Carboxyhemoglobin Sodium Potassium 2.9 L* Chloride Carbon Dioxide 33 H D BUN Creatinine < 0.2 L Glucose 157 H POC Glucose 134 H Calcium Ferritin Total Bilirubin Alkaline Phosphatase Lactate Dehydrogenase Total Creatine Kinase CK-MB (CK-2) Rel Index Troponin T C-Reactive Protein Total Protein Albumin Prealbumin LDL Cholesterol Direct HDL Cholesterol Arterial Blood Glucose Arterial Blood Ionized Calcium Urine WBC (Auto) 02/28/20 02/28/20 02/28/20 04:15 05:16 05:39 WBC RBC Hgb Hct MCV MCH RDW Plt Count Lymph % (Auto) [place] % (Auto) Lymph # (Auto) [place] # (Auto) Seg Neutrophils % Seg Neuts % (Manual) Lymphocytes % (Manual) Monocytes % (Manual) Basophils % (Manual) Seg Neutrophils # Seg Neutrophils # Man Lymphocytes # (Manual) Monocytes # (Manual) Eosinophils # (Manual) Basophils # (Manual) PT INR D-Dimer ABG pH POC ABG pCO2 POC ABG pO2 ABG pO2 142.9 H ABG HCO3 34.1 H ABG O2 Saturation ABG Base Excess 8.3 H ABG Hemoglobin ABG Oxyhemoglobin ABG Potassium ABG Glucose Oxyhemoglobin Carboxyhemoglobin Sodium 151 H Potassium Chloride Carbon Dioxide 32 H BUN Creatinine 0.2 L Glucose 167 H POC Glucose 138 H Calcium Ferritin Total Bilirubin Alkaline Phosphatase Lactate Dehydrogenase Total Creatine Kinase CK-MB (CK-2) Rel Index Troponin T C-Reactive Protein Total Protein Albumin Prealbumin LDL Cholesterol Direct HDL Cholesterol Arterial Blood Glucose Arterial Blood Ionized Calcium Urine WBC (Auto) 02/28/20 02/28/20 02/28/20 11:05 11:33 12:54 WBC RBC Hgb Hct MCV MCH RDW Plt Count Lymph % (Auto) [place] % (Auto) Lymph # (Auto) [place] # (Auto) Seg Neutrophils % Seg Neuts % (Manual) Lymphocytes % (Manual) Monocytes % (Manual) Basophils % (Manual) Seg Neutrophils # Seg Neutrophils # Man Lymphocytes # (Manual) Monocytes # (Manual) Eosinophils # (Manual) Basophils # (Manual) PT INR D-Dimer ABG pH POC ABG pCO2 POC ABG pO2 ABG pO2 ABG HCO3 ABG O2 Saturation ABG Base Excess ABG Hemoglobin ABG Oxyhemoglobin ABG Potassium ABG Glucose Oxyhemoglobin Carboxyhemoglobin Sodium Potassium Chloride Carbon Dioxide BUN Creatinine Glucose POC Glucose 160 H Calcium Ferritin Total Bilirubin Alkaline Phosphatase Lactate Dehydrogenase Total Creatine Kinase CK-MB (CK-2) Rel Index Troponin T C-Reactive Protein 4.70 H Total Protein Albumin Prealbumin 0.090 L LDL Cholesterol Direct HDL Cholesterol Arterial Blood Glucose Arterial Blood Ionized Calcium Urine WBC (Auto) 02/28/20 02/29/20 02/29/20 17:34 00:44 04:05 WBC 19.6 H RBC Hgb Hct MCV MCH 27 L RDW 15.4 H Plt Count Lymph % (Auto) [place] % (Auto) Lymph # (Auto) [place] # (Auto) Seg Neutrophils % Seg Neuts % (Manual) 86.0 H Lymphocytes % (Manual) 7.0 L Monocytes % (Manual) Basophils % (Manual) Seg Neutrophils # Seg Neutrophils # Man 16.9 H Lymphocytes # (Manual) Monocytes # (Manual) 1.2 H Eosinophils # (Manual) Basophils # (Manual) PT INR D-Dimer ABG pH POC ABG pCO2 POC ABG pO2 ABG pO2 ABG HCO3 ABG O2 Saturation ABG Base Excess ABG Hemoglobin ABG Oxyhemoglobin ABG Potassium ABG Glucose Oxyhemoglobin Carboxyhemoglobin Sodium Potassium Chloride Carbon Dioxide BUN Creatinine Glucose POC Glucose 136 H 156 H Calcium Ferritin Total Bilirubin Alkaline Phosphatase Lactate Dehydrogenase Total Creatine Kinase CK-MB (CK-2) Rel Index Troponin T C-Reactive Protein Total Protein Albumin Prealbumin LDL Cholesterol Direct HDL Cholesterol Arterial Blood Glucose Arterial Blood Ionized Calcium Urine WBC (Auto) 02/29/20 02/29/20 02/29/20 04:05 05:14 05:33 WBC RBC Hgb Hct MCV MCH RDW Plt Count Lymph % (Auto) [place] % (Auto) Lymph # (Auto) [place] # (Auto) Seg Neutrophils % Seg Neuts % (Manual) Lymphocytes % (Manual) Monocytes % (Manual) Basophils % (Manual) Seg Neutrophils # Seg Neutrophils # Man Lymphocytes # (Manual) Monocytes # (Manual) Eosinophils # (Manual) Basophils # (Manual) PT INR D-Dimer ABG pH POC ABG pCO2 54.3 H POC ABG pO2 124.8 H ABG pO2 ABG HCO3 ABG O2 Saturation ABG Base Excess ABG Hemoglobin ABG Oxyhemoglobin ABG Potassium ABG Glucose 185 H Oxyhemoglobin Carboxyhemoglobin Sodium 148 H Potassium Chloride Carbon Dioxide 33 H BUN Creatinine < 0.2 L Glucose 173 H POC Glucose 152 H Calcium Ferritin Total Bilirubin Alkaline Phosphatase Lactate Dehydrogenase Total Creatine Kinase CK-MB (CK-2) Rel Index Troponin T C-Reactive Protein Total Protein Albumin Prealbumin LDL Cholesterol Direct HDL Cholesterol Arterial Blood Glucose 185 H Arterial Blood Ionized Calcium Urine WBC (Auto) 03/01/20 03/01/20 03/01/20 00:00 03:45 04:33 WBC 23.1 H RBC Hgb Hct MCV MCH 27 L RDW 15.3 H Plt Count Lymph % (Auto) [place] % (Auto) Lymph # (Auto) [place] # (Auto) Seg Neutrophils % Seg Neuts % (Manual) 92.0 H Lymphocytes % (Manual) 6.0 L Monocytes % (Manual) Basophils % (Manual) Seg Neutrophils # Seg Neutrophils # Man 21.3 H Lymphocytes # (Manual) Monocytes # (Manual) Eosinophils # (Manual) 0.5 H Basophils # (Manual) PT INR D-Dimer ABG pH 7.492 H POC ABG pCO2 POC ABG pO2 ABG pO2 157.1 H ABG HCO3 32.3 H ABG O2 Saturation ABG Base Excess 8.1 H ABG Hemoglobin 13.2 L ABG Oxyhemoglobin ABG Potassium ABG Glucose Oxyhemoglobin Carboxyhemoglobin Sodium Potassium Chloride Carbon Dioxide BUN Creatinine Glucose POC Glucose 109 H Calcium Ferritin Total Bilirubin Alkaline Phosphatase Lactate Dehydrogenase Total Creatine Kinase CK-MB (CK-2) Rel Index Troponin T C-Reactive Protein Total Protein Albumin Prealbumin LDL Cholesterol Direct HDL Cholesterol Arterial Blood Glucose Arterial Blood Ionized Calcium Urine WBC (Auto) 03/01/20 03/01/20 03/01/20 04:33 05:29 12:32 WBC RBC Hgb Hct MCV MCH RDW Plt Count Lymph % (Auto) [place] % (Auto) Lymph # (Auto) [place] # (Auto) Seg Neutrophils % Seg Neuts % (Manual) Lymphocytes % (Manual) Monocytes % (Manual) Basophils % (Manual) Seg Neutrophils # Seg Neutrophils # Man Lymphocytes # (Manual) Monocytes # (Manual) Eosinophils # (Manual) Basophils # (Manual) PT INR D-Dimer ABG pH POC ABG pCO2 POC ABG pO2 ABG pO2 ABG HCO3 ABG O2 Saturation ABG Base Excess ABG Hemoglobin ABG Oxyhemoglobin ABG Potassium ABG Glucose Oxyhemoglobin Carboxyhemoglobin Sodium 146 H Potassium Chloride Carbon Dioxide 32 H BUN Creatinine < 0.2 L Glucose 120 H POC Glucose 120 H 128 H Calcium Ferritin Total Bilirubin Alkaline Phosphatase Lactate Dehydrogenase Total Creatine Kinase CK-MB (CK-2) Rel Index Troponin T C-Reactive Protein Total Protein Albumin Prealbumin LDL Cholesterol Direct HDL Cholesterol Arterial Blood Glucose Arterial Blood Ionized Calcium Urine WBC (Auto) 03/01/20 03/01/20 03/02/20 17:38 23:46 06:13 WBC RBC Hgb Hct MCV MCH RDW Plt Count Lymph % (Auto) [place] % (Auto) Lymph # (Auto) [place] # (Auto) Seg Neutrophils % Seg Neuts % (Manual) Lymphocytes % (Manual) Monocytes % (Manual) Basophils % (Manual) Seg Neutrophils # Seg Neutrophils # Man Lymphocytes # (Manual) Monocytes # (Manual) Eosinophils # (Manual) Basophils # (Manual) PT INR D-Dimer ABG pH POC ABG pCO2 POC ABG pO2 ABG pO2 ABG HCO3 ABG O2 Saturation ABG Base Excess ABG Hemoglobin ABG Oxyhemoglobin ABG Potassium ABG Glucose Oxyhemoglobin Carboxyhemoglobin Sodium Potassium Chloride Carbon Dioxide BUN Creatinine Glucose POC Glucose 114 H 121 H 120 H Calcium Ferritin Total Bilirubin Alkaline Phosphatase Lactate Dehydrogenase Total Creatine Kinase CK-MB (CK-2) Rel Index Troponin T C-Reactive Protein Total Protein Albumin Prealbumin LDL Cholesterol Direct HDL Cholesterol Arterial Blood Glucose Arterial Blood Ionized Calcium Urine WBC (Auto) 03/02/20 03/02/20 03/03/20 09:47 09:47 10:21 WBC 23.6 H RBC Hgb Hct MCV MCH RDW 15.3 H Plt Count 494 H Lymph % (Auto) [place] % (Auto) Lymph # (Auto) [place] # (Auto) Seg Neutrophils % Seg Neuts % (Manual) 85.0 H Lymphocytes % (Manual) 6.0 L Monocytes % (Manual) Basophils % (Manual) Seg Neutrophils # Seg Neutrophils # Man 20.1 H Lymphocytes # (Manual) Monocytes # (Manual) 1.7 H Eosinophils # (Manual) Basophils # (Manual) PT INR D-Dimer ABG pH POC ABG pCO2 POC ABG pO2 ABG pO2 ABG HCO3 ABG O2 Saturation ABG Base Excess ABG Hemoglobin ABG Oxyhemoglobin ABG Potassium 3.3 L ABG Glucose 158 H Oxyhemoglobin Carboxyhemoglobin Sodium Potassium Chloride Carbon Dioxide BUN Creatinine < 0.2 L Glucose 177 H POC Glucose Calcium Ferritin Total Bilirubin Alkaline Phosphatase Lactate Dehydrogenase Total Creatine Kinase CK-MB (CK-2) Rel Index Troponin T C-Reactive Protein Total Protein Albumin Prealbumin LDL Cholesterol Direct HDL Cholesterol Arterial Blood Glucose 158 H Arterial Blood Ionized Calcium Urine WBC (Auto) 03/03/20 03/04/20 03/04/20 21:30 00:00 12:23 WBC RBC Hgb Hct MCV MCH RDW Plt Count Lymph % (Auto) [place] % (Auto) Lymph # (Auto) [place] # (Auto) Seg Neutrophils % Seg Neuts % (Manual) Lymphocytes % (Manual) Monocytes % (Manual) Basophils % (Manual) Seg Neutrophils # Seg Neutrophils # Man Lymphocytes # (Manual) Monocytes # (Manual) Eosinophils # (Manual) Basophils # (Manual) PT INR D-Dimer ABG pH 7.328 L POC ABG pCO2 POC ABG pO2 ABG pO2 68.4 L ABG HCO3 35.0 H ABG O2 Saturation 93.9 L ABG Base Excess 6.8 H ABG Hemoglobin 12.7 L ABG Oxyhemoglobin ABG Potassium ABG Glucose Oxyhemoglobin 91.9 L Carboxyhemoglobin Sodium Potassium Chloride Carbon Dioxide BUN Creatinine Glucose POC Glucose 187 H 163 H Calcium Ferritin Total Bilirubin Alkaline Phosphatase Lactate Dehydrogenase Total Creatine Kinase CK-MB (CK-2) Rel Index Troponin T C-Reactive Protein Total Protein Albumin Prealbumin LDL Cholesterol Direct HDL Cholesterol Arterial Blood Glucose Arterial Blood Ionized Calcium Urine WBC (Auto) 03/04/20 03/04/20 03/05/20 18:15 21:30 06:02 WBC RBC Hgb Hct MCV MCH RDW Plt Count Lymph % (Auto) [place] % (Auto) Lymph # (Auto) [place] # (Auto) Seg Neutrophils % Seg Neuts % (Manual) Lymphocytes % (Manual) Monocytes % (Manual) Basophils % (Manual) Seg Neutrophils # Seg Neutrophils # Man Lymphocytes # (Manual) Monocytes # (Manual) Eosinophils # (Manual) Basophils # (Manual) PT INR D-Dimer ABG pH 7.297 L POC ABG pCO2 POC ABG pO2 ABG pO2 ABG HCO3 41.0 H ABG O2 Saturation ABG Base Excess 11.0 H ABG Hemoglobin 13.1 L ABG Oxyhemoglobin ABG Potassium ABG Glucose Oxyhemoglobin 94.5 L Carboxyhemoglobin Sodium Potassium Chloride Carbon Dioxide BUN Creatinine Glucose POC Glucose 192 H 127 H Calcium Ferritin Total Bilirubin Alkaline Phosphatase Lactate Dehydrogenase Total Creatine Kinase CK-MB (CK-2) Rel Index Troponin T C-Reactive Protein Total Protein Albumin Prealbumin LDL Cholesterol Direct HDL Cholesterol Arterial Blood Glucose Arterial Blood Ionized Calcium Urine WBC (Auto) 03/05/20 03/05/20 03/06/20 12:09 16:42 00:24 WBC RBC Hgb Hct MCV MCH RDW Plt Count Lymph % (Auto) [place] % (Auto) Lymph # (Auto) [place] # (Auto) Seg Neutrophils % Seg Neuts % (Manual) Lymphocytes % (Manual) Monocytes % (Manual) Basophils % (Manual) Seg Neutrophils # Seg Neutrophils # Man Lymphocytes # (Manual) Monocytes # (Manual) Eosinophils # (Manual) Basophils # (Manual) PT INR D-Dimer ABG pH POC ABG pCO2 POC ABG pO2 ABG pO2 ABG HCO3 ABG O2 Saturation ABG Base Excess ABG Hemoglobin ABG Oxyhemoglobin ABG Potassium ABG Glucose Oxyhemoglobin Carboxyhemoglobin Sodium Potassium Chloride Carbon Dioxide BUN Creatinine Glucose POC Glucose 147 H 114 H 134 H Calcium Ferritin Total Bilirubin Alkaline Phosphatase Lactate Dehydrogenase Total Creatine Kinase CK-MB (CK-2) Rel Index Troponin T C-Reactive Protein Total Protein Albumin Prealbumin LDL Cholesterol Direct HDL Cholesterol Arterial Blood Glucose Arterial Blood Ionized Calcium Urine WBC (Auto) 03/06/20 03/06/20 03/06/20 04:34 05:53 06:08 WBC 25.4 H RBC Hgb 10.5 L Hct 32.7 L MCV MCH 27 L RDW 15.3 H Plt Count 634 H Lymph % (Auto) [place] % (Auto) Lymph # (Auto) [place] # (Auto) Seg Neutrophils % Seg Neuts % (Manual) 88.0 H Lymphocytes % (Manual) 2.0 L Monocytes % (Manual) 8.0 H Basophils % (Manual) Seg Neutrophils # Seg Neutrophils # Man 22.4 H Lymphocytes # (Manual) 0.5 L Monocytes # (Manual) 2.0 H Eosinophils # (Manual) Basophils # (Manual) PT INR D-Dimer ABG pH POC ABG pCO2 POC ABG pO2 ABG pO2 ABG HCO3 37.9 H ABG O2 Saturation ABG Base Excess 11.4 H ABG Hemoglobin 10.6 L ABG Oxyhemoglobin ABG Potassium ABG Glucose Oxyhemoglobin 94.7 L Carboxyhemoglobin Sodium Potassium Chloride Carbon Dioxide BUN Creatinine Glucose POC Glucose 135 H Calcium Ferritin Total Bilirubin Alkaline Phosphatase Lactate Dehydrogenase Total Creatine Kinase CK-MB (CK-2) Rel Index Troponin T C-Reactive Protein Total Protein Albumin Prealbumin LDL Cholesterol Direct HDL Cholesterol Arterial Blood Glucose Arterial Blood Ionized Calcium Urine WBC (Auto) 03/06/20 03/06/20 03/06/20 06:08 12:19 19:10 WBC RBC Hgb Hct MCV MCH RDW Plt Count Lymph % (Auto) [place] % (Auto) Lymph # (Auto) [place] # (Auto) Seg Neutrophils % Seg Neuts % (Manual) Lymphocytes % (Manual) Monocytes % (Manual) Basophils % (Manual) Seg Neutrophils # Seg Neutrophils # Man Lymphocytes # (Manual) Monocytes # (Manual) Eosinophils # (Manual) Basophils # (Manual) PT INR D-Dimer ABG pH POC ABG pCO2 POC ABG pO2 ABG pO2 ABG HCO3 ABG O2 Saturation ABG Base Excess ABG Hemoglobin ABG Oxyhemoglobin ABG Potassium ABG Glucose Oxyhemoglobin Carboxyhemoglobin Sodium 150 H D Potassium Chloride Carbon Dioxide 39 H D BUN 23 H Creatinine < 0.2 L Glucose 144 H POC Glucose 169 H 152 H Calcium Ferritin Total Bilirubin Alkaline Phosphatase Lactate Dehydrogenase Total Creatine Kinase CK-MB (CK-2) Rel Index Troponin T C-Reactive Protein Total Protein Albumin 3.3 L Prealbumin LDL Cholesterol Direct HDL Cholesterol Arterial Blood Glucose Arterial Blood Ionized Calcium Urine WBC (Auto) 03/06/20 03/07/20 03/07/20 23:58 04:25 04:25 WBC 22.1 H RBC Hgb 10.9 L Hct 32.9 L MCV MCH RDW 15.5 H Plt Count 739 H Lymph % (Auto) 7.8 L [place] % (Auto) Lymph # (Auto) [place] # (Auto) 1.3 H Seg Neutrophils % 85.5 H Seg Neuts % (Manual) Lymphocytes % (Manual) Monocytes % (Manual) Basophils % (Manual) Seg Neutrophils # 18.9 H Seg Neutrophils # Man Lymphocytes # (Manual) Monocytes # (Manual) Eosinophils # (Manual) Basophils # (Manual) PT INR D-Dimer ABG pH POC ABG pCO2 POC ABG pO2 ABG pO2 ABG HCO3 ABG O2 Saturation ABG Base Excess ABG Hemoglobin ABG Oxyhemoglobin ABG Potassium ABG Glucose Oxyhemoglobin Carboxyhemoglobin Sodium 146 H Potassium Chloride Carbon Dioxide 37 H BUN Creatinine < 0.2 L Glucose 118 H POC Glucose 111 H Calcium Ferritin Total Bilirubin Alkaline Phosphatase Lactate Dehydrogenase Total Creatine Kinase CK-MB (CK-2) Rel Index Troponin T C-Reactive Protein Total Protein Albumin 3.7 L Prealbumin LDL Cholesterol Direct HDL Cholesterol Arterial Blood Glucose Arterial Blood Ionized Calcium Urine WBC (Auto) 03/07/20 03/07/20 03/07/20 05:20 17:45 23:32 WBC RBC Hgb Hct MCV MCH RDW Plt Count Lymph % (Auto) [place] % (Auto) Lymph # (Auto) [place] # (Auto) Seg Neutrophils % Seg Neuts % (Manual) Lymphocytes % (Manual) Monocytes % (Manual) Basophils % (Manual) Seg Neutrophils # Seg Neutrophils # Man Lymphocytes # (Manual) Monocytes # (Manual) Eosinophils # (Manual) Basophils # (Manual) PT INR D-Dimer ABG pH POC ABG pCO2 POC ABG pO2 ABG pO2 ABG HCO3 ABG O2 Saturation ABG Base Excess ABG Hemoglobin ABG Oxyhemoglobin ABG Potassium ABG Glucose Oxyhemoglobin Carboxyhemoglobin Sodium Potassium Chloride Carbon Dioxide BUN Creatinine Glucose POC Glucose 113 H 124 H 210 H Calcium Ferritin Total Bilirubin Alkaline Phosphatase Lactate Dehydrogenase Total Creatine Kinase CK-MB (CK-2) Rel Index Troponin T C-Reactive Protein Total Protein Albumin Prealbumin LDL Cholesterol Direct HDL Cholesterol Arterial Blood Glucose Arterial Blood Ionized Calcium Urine WBC (Auto) 03/08/20 03/08/20 03/08/20 05:35 06:43 06:43 WBC 28.9 H RBC 3.53 L Hgb 9.7 L Hct 30.3 L MCV MCH RDW 15.6 H Plt Count 578 H Lymph % (Auto) [place] % (Auto) Lymph # (Auto) [place] # (Auto) Seg Neutrophils % Seg Neuts % (Manual) 93.0 H Lymphocytes % (Manual) 4.0 L Monocytes % (Manual) Basophils % (Manual) Seg Neutrophils # Seg Neutrophils # Man 26.9 H Lymphocytes # (Manual) Monocytes # (Manual) Eosinophils # (Manual) Basophils # (Manual) PT INR D-Dimer ABG pH POC ABG pCO2 POC ABG pO2 ABG pO2 ABG HCO3 ABG O2 Saturation ABG Base Excess ABG Hemoglobin ABG Oxyhemoglobin ABG Potassium ABG Glucose Oxyhemoglobin Carboxyhemoglobin Sodium 146 H Potassium Chloride Carbon Dioxide 35 H BUN 34 H Creatinine 0.3 L D Glucose 125 H POC Glucose 147 H Calcium Ferritin Total Bilirubin Alkaline Phosphatase Lactate Dehydrogenase Total Creatine Kinase CK-MB (CK-2) Rel Index Troponin T C-Reactive Protein Total Protein 5.9 L Albumin 3.2 L Prealbumin LDL Cholesterol Direct HDL Cholesterol Arterial Blood Glucose Arterial Blood Ionized Calcium Urine WBC (Auto) 03/08/20 03/08/20 03/08/20 08:57 11:14 12:34 WBC RBC Hgb Hct MCV MCH RDW Plt Count Lymph % (Auto) [place] % (Auto) Lymph # (Auto) [place] # (Auto) Seg Neutrophils % Seg Neuts % (Manual) Lymphocytes % (Manual) Monocytes % (Manual) Basophils % (Manual) Seg Neutrophils # Seg Neutrophils # Man Lymphocytes # (Manual) Monocytes # (Manual) Eosinophils # (Manual) Basophils # (Manual) PT INR D-Dimer ABG pH POC ABG pCO2 63.1 H POC ABG pO2 ABG pO2 ABG HCO3 ABG O2 Saturation ABG Base Excess ABG Hemoglobin 10.9 L ABG Oxyhemoglobin ABG Potassium ABG Glucose 176 H Oxyhemoglobin Carboxyhemoglobin Sodium Potassium Chloride Carbon Dioxide BUN Creatinine Glucose POC Glucose 171 H Calcium Ferritin Total Bilirubin Alkaline Phosphatase Lactate Dehydrogenase Total Creatine Kinase CK-MB (CK-2) Rel Index Troponin T C-Reactive Protein Total Protein Albumin Prealbumin LDL Cholesterol Direct HDL Cholesterol Arterial Blood Glucose 176 H Arterial Blood Ionized Calcium 4.5 L Urine WBC (Auto) 10.0 H 03/08/20 03/08/20 03/09/20 18:02 23:43 05:49 WBC RBC Hgb Hct MCV MCH RDW Plt Count Lymph % (Auto) [place] % (Auto) Lymph # (Auto) [place] # (Auto) Seg Neutrophils % Seg Neuts % (Manual) Lymphocytes % (Manual) Monocytes % (Manual) Basophils % (Manual) Seg Neutrophils # Seg Neutrophils # Man Lymphocytes # (Manual) Monocytes # (Manual) Eosinophils # (Manual) Basophils # (Manual) PT INR D-Dimer ABG pH POC ABG pCO2 POC ABG pO2 ABG pO2 ABG HCO3 ABG O2 Saturation ABG Base Excess ABG Hemoglobin ABG Oxyhemoglobin ABG Potassium ABG Glucose Oxyhemoglobin Carboxyhemoglobin Sodium Potassium Chloride Carbon Dioxide BUN Creatinine Glucose POC Glucose 157 H 134 H 163 H Calcium Ferritin Total Bilirubin Alkaline Phosphatase Lactate Dehydrogenase Total Creatine Kinase CK-MB (CK-2) Rel Index Troponin T C-Reactive Protein Total Protein Albumin Prealbumin LDL Cholesterol Direct HDL Cholesterol Arterial Blood Glucose Arterial Blood Ionized Calcium Urine WBC (Auto) 03/09/20 03/09/20 03/09/20 08:35 08:35 12:11 WBC 23.4 H RBC 3.36 L Hgb 9.3 L Hct 28.8 L MCV MCH RDW 15.9 H Plt Count 521 H Lymph % (Auto) [place] % (Auto) Lymph # (Auto) [place] # (Auto) Seg Neutrophils % Seg Neuts % (Manual) 87.0 H Lymphocytes % (Manual) 4.0 L Monocytes % (Manual) 9.0 H Basophils % (Manual) Seg Neutrophils # Seg Neutrophils # Man 20.4 H Lymphocytes # (Manual) 0.9 L Monocytes # (Manual) 2.1 H Eosinophils # (Manual) Basophils # (Manual) PT INR D-Dimer ABG pH POC ABG pCO2 POC ABG pO2 ABG pO2 ABG HCO3 ABG O2 Saturation ABG Base Excess ABG Hemoglobin ABG Oxyhemoglobin ABG Potassium ABG Glucose Oxyhemoglobin Carboxyhemoglobin Sodium 147 H Potassium Chloride Carbon Dioxide 37 H BUN 63 H Creatinine Glucose 154 H POC Glucose 128 H Calcium Ferritin Total Bilirubin Alkaline Phosphatase Lactate Dehydrogenase Total Creatine Kinase CK-MB (CK-2) Rel Index Troponin T C-Reactive Protein Total Protein Albumin Prealbumin LDL Cholesterol Direct HDL Cholesterol Arterial Blood Glucose Arterial Blood Ionized Calcium Urine WBC (Auto) 03/09/20 03/10/20 03/10/20 17:51 00:25 05:41 WBC RBC Hgb Hct MCV MCH RDW Plt Count Lymph % (Auto) [place] % (Auto) Lymph # (Auto) [place] # (Auto) Seg Neutrophils % Seg Neuts % (Manual) Lymphocytes % (Manual) Monocytes % (Manual) Basophils % (Manual) Seg Neutrophils # Seg Neutrophils # Man Lymphocytes # (Manual) Monocytes # (Manual) Eosinophils # (Manual) Basophils # (Manual) PT INR D-Dimer ABG pH POC ABG pCO2 POC ABG pO2 ABG pO2 ABG HCO3 ABG O2 Saturation ABG Base Excess ABG Hemoglobin ABG Oxyhemoglobin ABG Potassium ABG Glucose Oxyhemoglobin Carboxyhemoglobin Sodium Potassium Chloride Carbon Dioxide BUN Creatinine Glucose POC Glucose 127 H 128 H 153 H Calcium Ferritin Total Bilirubin Alkaline Phosphatase Lactate Dehydrogenase Total Creatine Kinase CK-MB (CK-2) Rel Index Troponin T C-Reactive Protein Total Protein Albumin Prealbumin LDL Cholesterol Direct HDL Cholesterol Arterial Blood Glucose Arterial Blood Ionized Calcium Urine WBC (Auto) 1103/10/20 03/10/20 06:14 06:14 12:02 WBC 18.3 H RBC 3.45 L Hgb 9.5 L Hct 29.5 L MCV MCH RDW 16.1 H Plt Count 494 H Lymph % (Auto) [place] % (Auto) Lymph # (Auto) [place] # (Auto) Seg Neutrophils % Seg Neuts % (Manual) 95.0 H Lymphocytes % (Manual) 1.0 L Monocytes % (Manual) Basophils % (Manual) Seg Neutrophils # Seg Neutrophils # Man 17.4 H Lymphocytes # (Manual) 0.2 L Monocytes # (Manual) Eosinophils # (Manual) Basophils # (Manual) PT INR D-Dimer ABG pH POC ABG pCO2 POC ABG pO2 ABG pO2 ABG HCO3 ABG O2 Saturation ABG Base Excess ABG Hemoglobin ABG Oxyhemoglobin ABG Potassium ABG Glucose Oxyhemoglobin Carboxyhemoglobin Sodium 149 H Potassium Chloride Carbon Dioxide 35 H BUN 34 H Creatinine 0.2 L D Glucose 177 H POC Glucose 151 H Calcium Ferritin Total Bilirubin Alkaline Phosphatase Lactate Dehydrogenase Total Creatine Kinase CK-MB (CK-2) Rel Index Troponin T C-Reactive Protein Total Protein Albumin Prealbumin LDL Cholesterol Direct HDL Cholesterol Arterial Blood Glucose Arterial Blood Ionized Calcium Urine WBC (Auto) 03/10/20 03/10/20 03/11/20 17:41 23:53 05:02 WBC RBC Hgb Hct MCV MCH RDW Plt Count Lymph % (Auto) [place] % (Auto) Lymph # (Auto) [place] # (Auto) Seg Neutrophils % Seg Neuts % (Manual) Lymphocytes % (Manual) Monocytes % (Manual) Basophils % (Manual) Seg Neutrophils # Seg Neutrophils # Man Lymphocytes # (Manual) Monocytes # (Manual) Eosinophils # (Manual) Basophils # (Manual) PT INR D-Dimer ABG pH POC ABG pCO2 POC ABG pO2 ABG pO2 ABG HCO3 ABG O2 Saturation ABG Base Excess ABG Hemoglobin ABG Oxyhemoglobin ABG Potassium ABG Glucose Oxyhemoglobin Carboxyhemoglobin Sodium Potassium Chloride Carbon Dioxide BUN Creatinine Glucose POC Glucose 168 H 142 H 146 H Calcium Ferritin Total Bilirubin Alkaline Phosphatase Lactate Dehydrogenase Total Creatine Kinase CK-MB (CK-2) Rel Index Troponin T C-Reactive Protein Total Protein Albumin Prealbumin LDL Cholesterol Direct HDL Cholesterol Arterial Blood Glucose Arterial Blood Ionized Calcium Urine WBC (Auto) 03/11/20 03/11/20 03/11/20 11:30 14:01 14:01 WBC 19.7 H RBC 3.04 L Hgb 8.7 L Hct 25.8 L MCV MCH RDW 15.6 H Plt Count Lymph % (Auto) [place] % (Auto) Lymph # (Auto) [place] # (Auto) Seg Neutrophils % Seg Neuts % (Manual) Lymphocytes % (Manual) Monocytes % (Manual) Basophils % (Manual) Seg Neutrophils # Seg Neutrophils # Man Lymphocytes # (Manual) Monocytes # (Manual) Eosinophils # (Manual) Basophils # (Manual) PT INR D-Dimer ABG pH POC ABG pCO2 POC ABG pO2 ABG pO2 ABG HCO3 ABG O2 Saturation ABG Base Excess ABG Hemoglobin ABG Oxyhemoglobin ABG Potassium ABG Glucose Oxyhemoglobin Carboxyhemoglobin Sodium 151 H Potassium Chloride Carbon Dioxide 37 H BUN Creatinine < 0.2 L Glucose 171 H POC Glucose 248 H Calcium Ferritin Total Bilirubin Alkaline Phosphatase Lactate Dehydrogenase Total Creatine Kinase CK-MB (CK-2) Rel Index Troponin T C-Reactive Protein Total Protein Albumin Prealbumin LDL Cholesterol Direct HDL Cholesterol Arterial Blood Glucose Arterial Blood Ionized Calcium Urine WBC (Auto) 03/11/20 03/11/20 03/12/20 17:09 23:52 04:39 WBC 19.9 H RBC 3.16 L Hgb 8.9 L Hct 27.5 L MCV MCH RDW 15.7 H Plt Count Lymph % (Auto) 6.8 L [place] % (Auto) Lymph # (Auto) [place] # (Auto) 1.2 H Seg Neutrophils % 86.0 H Seg Neuts % (Manual) Lymphocytes % (Manual) Monocytes % (Manual) Basophils % (Manual) Seg Neutrophils # 17.1 H Seg Neutrophils # Man Lymphocytes # (Manual) Monocytes # (Manual) Eosinophils # (Manual) Basophils # (Manual) PT INR D-Dimer ABG pH POC ABG pCO2 POC ABG pO2 ABG pO2 ABG HCO3 ABG O2 Saturation ABG Base Excess ABG Hemoglobin ABG Oxyhemoglobin ABG Potassium ABG Glucose Oxyhemoglobin Carboxyhemoglobin Sodium Potassium Chloride Carbon Dioxide BUN Creatinine Glucose POC Glucose 124 H 131 H Calcium Ferritin Total Bilirubin Alkaline Phosphatase Lactate Dehydrogenase Total Creatine Kinase CK-MB (CK-2) Rel Index Troponin T C-Reactive Protein Total Protein Albumin Prealbumin LDL Cholesterol Direct HDL Cholesterol Arterial Blood Glucose Arterial Blood Ionized Calcium Urine WBC (Auto) 03/12/20 03/12/20 03/12/20 04:39 05:28 11:34 WBC RBC Hgb Hct MCV MCH RDW Plt Count Lymph % (Auto) [place] % (Auto) Lymph # (Auto) [place] # (Auto) Seg Neutrophils % Seg Neuts % (Manual) Lymphocytes % (Manual) Monocytes % (Manual) Basophils % (Manual) Seg Neutrophils # Seg Neutrophils # Man Lymphocytes # (Manual) Monocytes # (Manual) Eosinophils # (Manual) Basophils # (Manual) PT INR D-Dimer ABG pH POC ABG pCO2 POC ABG pO2 ABG pO2 ABG HCO3 ABG O2 Saturation ABG Base Excess ABG Hemoglobin ABG Oxyhemoglobin ABG Potassium ABG Glucose Oxyhemoglobin Carboxyhemoglobin Sodium 147 H Potassium Chloride Carbon Dioxide 40 H BUN Creatinine < 0.2 L Glucose 175 H POC Glucose 167 H 144 H Calcium Ferritin Total Bilirubin Alkaline Phosphatase Lactate Dehydrogenase Total Creatine Kinase CK-MB (CK-2) Rel Index Troponin T C-Reactive Protein Total Protein Albumin Prealbumin LDL Cholesterol Direct HDL Cholesterol Arterial Blood Glucose Arterial Blood Ionized Calcium Urine WBC (Auto) 03/12/20 03/12/20 03/13/20 17:32 23:57 05:57 WBC RBC Hgb Hct MCV MCH RDW Plt Count Lymph % (Auto) [place] % (Auto) Lymph # (Auto) [place] # (Auto) Seg Neutrophils % Seg Neuts % (Manual) Lymphocytes % (Manual) Monocytes % (Manual) Basophils % (Manual) Seg Neutrophils # Seg Neutrophils # Man Lymphocytes # (Manual) Monocytes # (Manual) Eosinophils # (Manual) Basophils # (Manual) PT INR D-Dimer ABG pH POC ABG pCO2 POC ABG pO2 ABG pO2 ABG HCO3 ABG O2 Saturation ABG Base Excess ABG Hemoglobin ABG Oxyhemoglobin ABG Potassium ABG Glucose Oxyhemoglobin Carboxyhemoglobin Sodium Potassium Chloride Carbon Dioxide BUN Creatinine Glucose POC Glucose 141 H 137 H 161 H Calcium Ferritin Total Bilirubin Alkaline Phosphatase Lactate Dehydrogenase Total Creatine Kinase CK-MB (CK-2) Rel Index Troponin T C-Reactive Protein Total Protein Albumin Prealbumin LDL Cholesterol Direct HDL Cholesterol Arterial Blood Glucose Arterial Blood Ionized Calcium Urine WBC (Auto) 03/13/20 03/13/20 03/13/20 12:28 14:14 18:39 WBC RBC Hgb Hct MCV MCH RDW Plt Count Lymph % (Auto) [place] % (Auto) Lymph # (Auto) [place] # (Auto) Seg Neutrophils % Seg Neuts % (Manual) Lymphocytes % (Manual) Monocytes % (Manual) Basophils % (Manual) Seg Neutrophils # Seg Neutrophils # Man Lymphocytes # (Manual) Monocytes # (Manual) Eosinophils # (Manual) Basophils # (Manual) PT INR D-Dimer ABG pH POC ABG pCO2 POC ABG pO2 ABG pO2 ABG HCO3 ABG O2 Saturation ABG Base Excess ABG Hemoglobin ABG Oxyhemoglobin ABG Potassium ABG Glucose Oxyhemoglobin Carboxyhemoglobin Sodium Potassium Chloride Carbon Dioxide 39 H BUN Creatinine < 0.2 L Glucose 129 H POC Glucose 130 H 125 H Calcium Ferritin Total Bilirubin Alkaline Phosphatase Lactate Dehydrogenase Total Creatine Kinase CK-MB (CK-2) Rel Index Troponin T C-Reactive Protein Total Protein Albumin Prealbumin LDL Cholesterol Direct HDL Cholesterol Arterial Blood Glucose Arterial Blood Ionized Calcium Urine WBC (Auto) 03/13/20 03/14/20 03/14/20 23:33 05:24 08:07 WBC 16.8 H RBC 2.81 L Hgb 7.9 L Hct 23.9 L MCV MCH RDW 15.9 H Plt Count Lymph % (Auto) [place] % (Auto) Lymph # (Auto) [place] # (Auto) Seg Neutrophils % Seg Neuts % (Manual) 84.0 H Lymphocytes % (Manual) 10.0 L Monocytes % (Manual) Basophils % (Manual) Seg Neutrophils # Seg Neutrophils # Man 14.1 H Lymphocytes # (Manual) Monocytes # (Manual) Eosinophils # (Manual) Basophils # (Manual) PT INR D-Dimer ABG pH POC ABG pCO2 POC ABG pO2 ABG pO2 ABG HCO3 ABG O2 Saturation ABG Base Excess ABG Hemoglobin ABG Oxyhemoglobin ABG Potassium ABG Glucose Oxyhemoglobin Carboxyhemoglobin Sodium Potassium Chloride Carbon Dioxide BUN Creatinine Glucose POC Glucose 146 H 125 H Calcium Ferritin Total Bilirubin Alkaline Phosphatase Lactate Dehydrogenase Total Creatine Kinase CK-MB (CK-2) Rel Index Troponin T C-Reactive Protein Total Protein Albumin Prealbumin LDL Cholesterol Direct HDL Cholesterol Arterial Blood Glucose Arterial Blood Ionized Calcium Urine WBC (Auto) 03/14/20 03/14/20 03/14/20 08:07 12:21 18:26 WBC RBC Hgb Hct MCV MCH RDW Plt Count Lymph % (Auto) [place] % (Auto) Lymph # (Auto) [place] # (Auto) Seg Neutrophils % Seg Neuts % (Manual) Lymphocytes % (Manual) Monocytes % (Manual) Basophils % (Manual) Seg Neutrophils # Seg Neutrophils # Man Lymphocytes # (Manual) Monocytes # (Manual) Eosinophils # (Manual) Basophils # (Manual) PT INR D-Dimer ABG pH POC ABG pCO2 POC ABG pO2 ABG pO2 ABG HCO3 ABG O2 Saturation ABG Base Excess ABG Hemoglobin ABG Oxyhemoglobin ABG Potassium ABG Glucose Oxyhemoglobin Carboxyhemoglobin Sodium Potassium Chloride 97.0 L Carbon Dioxide 37 H BUN Creatinine < 0.2 L Glucose 129 H POC Glucose 109 H 142 H Calcium 8.3 L Ferritin Total Bilirubin Alkaline Phosphatase Lactate Dehydrogenase Total Creatine Kinase CK-MB (CK-2) Rel Index Troponin T C-Reactive Protein Total Protein Albumin Prealbumin LDL Cholesterol Direct HDL Cholesterol Arterial Blood Glucose Arterial Blood Ionized Calcium Urine WBC (Auto) 03/14/20 03/15/20 03/15/20 23:57 05:46 08:06 WBC 19.7 H RBC 3.29 L Hgb 9.1 L Hct 28.0 L MCV MCH RDW 15.9 H Plt Count Lymph % (Auto) [place] % (Auto) Lymph # (Auto) [place] # (Auto) Seg Neutrophils % Seg Neuts % (Manual) Lymphocytes % (Manual) Monocytes % (Manual) Basophils % (Manual) Seg Neutrophils # Seg Neutrophils # Man Lymphocytes # (Manual) Monocytes # (Manual) Eosinophils # (Manual) Basophils # (Manual) PT INR D-Dimer ABG pH POC ABG pCO2 POC ABG pO2 ABG pO2 ABG HCO3 ABG O2 Saturation ABG Base Excess ABG Hemoglobin ABG Oxyhemoglobin ABG Potassium ABG Glucose Oxyhemoglobin Carboxyhemoglobin Sodium Potassium Chloride Carbon Dioxide BUN Creatinine Glucose POC Glucose 157 H 118 H Calcium Ferritin Total Bilirubin Alkaline Phosphatase Lactate Dehydrogenase Total Creatine Kinase CK-MB (CK-2) Rel Index Troponin T C-Reactive Protein Total Protein Albumin Prealbumin LDL Cholesterol Direct HDL Cholesterol Arterial Blood Glucose Arterial Blood Ionized Calcium Urine WBC (Auto) 03/15/20 03/15/20 03/15/20 08:06 12:44 18:09 WBC RBC Hgb Hct MCV MCH RDW Plt Count Lymph % (Auto) [place] % (Auto) Lymph # (Auto) [place] # (Auto) Seg Neutrophils % Seg Neuts % (Manual) Lymphocytes % (Manual) Monocytes % (Manual) Basophils % (Manual) Seg Neutrophils # Seg Neutrophils # Man Lymphocytes # (Manual) Monocytes # (Manual) Eosinophils # (Manual) Basophils # (Manual) PT INR D-Dimer ABG pH POC ABG pCO2 POC ABG pO2 ABG pO2 ABG HCO3 ABG O2 Saturation ABG Base Excess ABG Hemoglobin ABG Oxyhemoglobin ABG Potassium ABG Glucose Oxyhemoglobin Carboxyhemoglobin Sodium 136 L Potassium Chloride 93.6 L Carbon Dioxide 37 H BUN Creatinine < 0.2 L Glucose 132 H POC Glucose 151 H 164 H Calcium Ferritin Total Bilirubin Alkaline Phosphatase Lactate Dehydrogenase Total Creatine Kinase CK-MB (CK-2) Rel Index Troponin T C-Reactive Protein Total Protein Albumin Prealbumin LDL Cholesterol Direct HDL Cholesterol Arterial Blood Glucose Arterial Blood Ionized Calcium Urine WBC (Auto) 03/15/20 03/16/20 03/16/20 23:26 05:39 11:58 WBC RBC Hgb Hct MCV MCH RDW Plt Count Lymph % (Auto) [place] % (Auto) Lymph # (Auto) [place] # (Auto) Seg Neutrophils % Seg Neuts % (Manual) Lymphocytes % (Manual) Monocytes % (Manual) Basophils % (Manual) Seg Neutrophils # Seg Neutrophils # Man Lymphocytes # (Manual) Monocytes # (Manual) Eosinophils # (Manual) Basophils # (Manual) PT INR D-Dimer ABG pH POC ABG pCO2 POC ABG pO2 ABG pO2 ABG HCO3 ABG O2 Saturation ABG Base Excess ABG Hemoglobin ABG Oxyhemoglobin ABG Potassium ABG Glucose Oxyhemoglobin Carboxyhemoglobin Sodium Potassium Chloride Carbon Dioxide BUN Creatinine Glucose POC Glucose 136 H 116 H 109 H Calcium Ferritin Total Bilirubin Alkaline Phosphatase Lactate Dehydrogenase Total Creatine Kinase CK-MB (CK-2) Rel Index Troponin T C-Reactive Protein Total Protein Albumin Prealbumin LDL Cholesterol Direct HDL Cholesterol Arterial Blood Glucose Arterial Blood Ionized Calcium Urine WBC (Auto) 03/16/20 03/17/20 03/17/20 23:56 04:40 04:40 WBC 18.0 H RBC 3.33 L Hgb 9.5 L Hct 28.8 L MCV MCH RDW 16.4 H Plt Count 499 H Lymph % (Auto) [place] % (Auto) Lymph # (Auto) [place] # (Auto) Seg Neutrophils % Seg Neuts % (Manual) 82.0 H Lymphocytes % (Manual) 8.0 L Monocytes % (Manual) Basophils % (Manual) Seg Neutrophils # Seg Neutrophils # Man 14.8 H Lymphocytes # (Manual) Monocytes # (Manual) 1.3 H Eosinophils # (Manual) Basophils # (Manual) 0.2 H PT INR D-Dimer ABG pH POC ABG pCO2 POC ABG pO2 ABG pO2 ABG HCO3 ABG O2 Saturation ABG Base Excess ABG Hemoglobin ABG Oxyhemoglobin ABG Potassium ABG Glucose Oxyhemoglobin Carboxyhemoglobin Sodium Potassium Chloride 97.7 L Carbon Dioxide 32 H BUN Creatinine < 0.2 L Glucose 114 H POC Glucose 131 H Calcium Ferritin Total Bilirubin Alkaline Phosphatase Lactate Dehydrogenase Total Creatine Kinase CK-MB (CK-2) Rel Index Troponin T C-Reactive Protein Total Protein Albumin Prealbumin LDL Cholesterol Direct HDL Cholesterol Arterial Blood Glucose Arterial Blood Ionized Calcium Urine WBC (Auto) 03/18/20 03/18/20 03/18/20 00:21 05:21 11:55 WBC RBC Hgb Hct MCV MCH RDW Plt Count Lymph % (Auto) [place] % (Auto) Lymph # (Auto) [place] # (Auto) Seg Neutrophils % Seg Neuts % (Manual) Lymphocytes % (Manual) Monocytes % (Manual) Basophils % (Manual) Seg Neutrophils # Seg Neutrophils # Man Lymphocytes # (Manual) Monocytes # (Manual) Eosinophils # (Manual) Basophils # (Manual) PT INR D-Dimer ABG pH POC ABG pCO2 POC ABG pO2 ABG pO2 ABG HCO3 ABG O2 Saturation ABG Base Excess ABG Hemoglobin ABG Oxyhemoglobin ABG Potassium ABG Glucose Oxyhemoglobin Carboxyhemoglobin Sodium Potassium Chloride Carbon Dioxide BUN Creatinine Glucose POC Glucose 124 H 138 H 119 H Calcium Ferritin Total Bilirubin Alkaline Phosphatase Lactate Dehydrogenase Total Creatine Kinase CK-MB (CK-2) Rel Index Troponin T C-Reactive Protein Total Protein Albumin Prealbumin LDL Cholesterol Direct HDL Cholesterol Arterial Blood Glucose Arterial Blood Ionized Calcium Urine WBC (Auto) 03/18/20 03/18/20 03/19/20 17:03 23:58 05:24 WBC RBC Hgb Hct MCV MCH RDW Plt Count Lymph % (Auto) [place] % (Auto) Lymph # (Auto) [place] # (Auto) Seg Neutrophils % Seg Neuts % (Manual) Lymphocytes % (Manual) Monocytes % (Manual) Basophils % (Manual) Seg Neutrophils # Seg Neutrophils # Man Lymphocytes # (Manual) Monocytes # (Manual) Eosinophils # (Manual) Basophils # (Manual) PT INR D-Dimer ABG pH POC ABG pCO2 POC ABG pO2 ABG pO2 ABG HCO3 ABG O2 Saturation ABG Base Excess ABG Hemoglobin ABG Oxyhemoglobin ABG Potassium ABG Glucose Oxyhemoglobin Carboxyhemoglobin Sodium Potassium Chloride Carbon Dioxide BUN Creatinine Glucose POC Glucose 128 H 128 H 115 H Calcium Ferritin Total Bilirubin Alkaline Phosphatase Lactate Dehydrogenase Total Creatine Kinase CK-MB (CK-2) Rel Index Troponin T C-Reactive Protein Total Protein Albumin Prealbumin LDL Cholesterol Direct HDL Cholesterol Arterial Blood Glucose Arterial Blood Ionized Calcium Urine WBC (Auto) 03/19/20 03/19/20 03/19/20 08:05 08:05 11:56 WBC 16.8 H RBC 3.36 L Hgb 9.4 L Hct 28.8 L MCV MCH RDW 17.4 H Plt Count 567 H Lymph % (Auto) 7.8 L [place] % (Auto) Lymph # (Auto) [place] # (Auto) 1.2 H Seg Neutrophils % 83.5 H Seg Neuts % (Manual) Lymphocytes % (Manual) Monocytes % (Manual) Basophils % (Manual) Seg Neutrophils # 14.1 H Seg Neutrophils # Man Lymphocytes # (Manual) Monocytes # (Manual) Eosinophils # (Manual) Basophils # (Manual) PT INR D-Dimer ABG pH POC ABG pCO2 POC ABG pO2 ABG pO2 ABG HCO3 ABG O2 Saturation ABG Base Excess ABG Hemoglobin ABG Oxyhemoglobin ABG Potassium ABG Glucose Oxyhemoglobin Carboxyhemoglobin Sodium Potassium Chloride Carbon Dioxide 36 H BUN Creatinine < 0.2 L Glucose 135 H POC Glucose 128 H Calcium Ferritin Total Bilirubin Alkaline Phosphatase Lactate Dehydrogenase Total Creatine Kinase CK-MB (CK-2) Rel Index Troponin T C-Reactive Protein Total Protein Albumin Prealbumin LDL Cholesterol Direct HDL Cholesterol Arterial Blood Glucose Arterial Blood Ionized Calcium Urine WBC (Auto) 03/19/20 03/20/20 03/20/20 23:59 05:12 16:52 WBC RBC Hgb Hct MCV MCH RDW Plt Count Lymph % (Auto) [place] % (Auto) Lymph # (Auto) [place] # (Auto) Seg Neutrophils % Seg Neuts % (Manual) Lymphocytes % (Manual) Monocytes % (Manual) Basophils % (Manual) Seg Neutrophils # Seg Neutrophils # Man Lymphocytes # (Manual) Monocytes # (Manual) Eosinophils # (Manual) Basophils # (Manual) PT INR D-Dimer ABG pH POC ABG pCO2 POC ABG pO2 ABG pO2 ABG HCO3 ABG O2 Saturation ABG Base Excess ABG Hemoglobin ABG Oxyhemoglobin ABG Potassium ABG Glucose Oxyhemoglobin Carboxyhemoglobin Sodium Potassium Chloride Carbon Dioxide BUN Creatinine Glucose POC Glucose 120 H 131 H 124 H Calcium Ferritin Total Bilirubin Alkaline Phosphatase Lactate Dehydrogenase Total Creatine Kinase CK-MB (CK-2) Rel Index Troponin T C-Reactive Protein Total Protein Albumin Prealbumin LDL Cholesterol Direct HDL Cholesterol Arterial Blood Glucose Arterial Blood Ionized Calcium Urine WBC (Auto) 03/20/20 03/21/20 03/21/20 23:35 04:50 07:35 WBC 15.2 H RBC 3.39 L Hgb 9.4 L Hct 29.4 L MCV MCH RDW 17.6 H Plt Count 518 H Lymph % (Auto) [place] % (Auto) Lymph # (Auto) [place] # (Auto) Seg Neutrophils % Seg Neuts % (Manual) 83.0 H Lymphocytes % (Manual) 10.0 L Monocytes % (Manual) Basophils % (Manual) 2.0 H Seg Neutrophils # Seg Neutrophils # Man 12.6 H Lymphocytes # (Manual) Monocytes # (Manual) Eosinophils # (Manual) Basophils # (Manual) 0.3 H PT INR D-Dimer ABG pH POC ABG pCO2 POC ABG pO2 ABG pO2 ABG HCO3 ABG O2 Saturation ABG Base Excess ABG Hemoglobin ABG Oxyhemoglobin ABG Potassium ABG Glucose Oxyhemoglobin Carboxyhemoglobin Sodium Potassium Chloride Carbon Dioxide BUN Creatinine Glucose POC Glucose 125 H 127 H Calcium Ferritin Total Bilirubin Alkaline Phosphatase Lactate Dehydrogenase Total Creatine Kinase CK-MB (CK-2) Rel Index Troponin T C-Reactive Protein Total Protein Albumin Prealbumin LDL Cholesterol Direct HDL Cholesterol Arterial Blood Glucose Arterial Blood Ionized Calcium Urine WBC (Auto) 03/21/20 03/21/20 03/21/20 07:35 11:45 17:22 WBC RBC Hgb Hct MCV MCH RDW Plt Count Lymph % (Auto) [place] % (Auto) Lymph # (Auto) [place] # (Auto) Seg Neutrophils % Seg Neuts % (Manual) Lymphocytes % (Manual) Monocytes % (Manual) Basophils % (Manual) Seg Neutrophils # Seg Neutrophils # Man Lymphocytes # (Manual) Monocytes # (Manual) Eosinophils # (Manual) Basophils # (Manual) PT INR D-Dimer ABG pH POC ABG pCO2 POC ABG pO2 ABG pO2 ABG HCO3 ABG O2 Saturation ABG Base Excess ABG Hemoglobin ABG Oxyhemoglobin ABG Potassium ABG Glucose Oxyhemoglobin Carboxyhemoglobin Sodium 136 L Potassium Chloride 97.7 L Carbon Dioxide 32 H BUN Creatinine < 0.2 L Glucose 103 H POC Glucose 126 H 120 H Calcium Ferritin Total Bilirubin Alkaline Phosphatase Lactate Dehydrogenase Total Creatine Kinase CK-MB (CK-2) Rel Index Troponin T C-Reactive Protein Total Protein Albumin Prealbumin LDL Cholesterol Direct HDL Cholesterol Arterial Blood Glucose Arterial Blood Ionized Calcium Urine WBC (Auto) 03/22/20 03/22/20 03/22/20 05:09 06:34 06:34 WBC 17.5 H RBC 3.52 L Hgb 10.0 L Hct 30.7 L MCV MCH RDW 17.5 H Plt Count 499 H Lymph % (Auto) [place] % (Auto) Lymph # (Auto) [place] # (Auto) Seg Neutrophils % Seg Neuts % (Manual) 80.0 H Lymphocytes % (Manual) 10.0 L Monocytes % (Manual) Basophils % (Manual) Seg Neutrophils # Seg Neutrophils # Man 14.0 H Lymphocytes # (Manual) Monocytes # (Manual) Eosinophils # (Manual) Basophils # (Manual) PT INR D-Dimer ABG pH POC ABG pCO2 POC ABG pO2 ABG pO2 ABG HCO3 ABG O2 Saturation ABG Base Excess ABG Hemoglobin ABG Oxyhemoglobin ABG Potassium ABG Glucose Oxyhemoglobin Carboxyhemoglobin Sodium Potassium Chloride 96.6 L Carbon Dioxide 38 H BUN Creatinine < 0.2 L Glucose 139 H POC Glucose 125 H Calcium Ferritin Total Bilirubin Alkaline Phosphatase Lactate Dehydrogenase Total Creatine Kinase CK-MB (CK-2) Rel Index Troponin T C-Reactive Protein Total Protein Albumin Prealbumin LDL Cholesterol Direct HDL Cholesterol Arterial Blood Glucose Arterial Blood Ionized Calcium Urine WBC (Auto) 03/22/20 03/22/20 03/22/20 11:45 18:00 23:32 WBC RBC Hgb Hct MCV MCH RDW Plt Count Lymph % (Auto) [place] % (Auto) Lymph # (Auto) [place] # (Auto) Seg Neutrophils % Seg Neuts % (Manual) Lymphocytes % (Manual) Monocytes % (Manual) Basophils % (Manual) Seg Neutrophils # Seg Neutrophils # Man Lymphocytes # (Manual) Monocytes # (Manual) Eosinophils # (Manual) Basophils # (Manual) PT INR D-Dimer ABG pH POC ABG pCO2 POC ABG pO2 ABG pO2 ABG HCO3 ABG O2 Saturation ABG Base Excess ABG Hemoglobin ABG Oxyhemoglobin ABG Potassium ABG Glucose Oxyhemoglobin Carboxyhemoglobin Sodium Potassium Chloride Carbon Dioxide BUN Creatinine Glucose POC Glucose 135 H 133 H Calcium Ferritin Total Bilirubin Alkaline Phosphatase Lactate Dehydrogenase Total Creatine Kinase CK-MB (CK-2) Rel Index Troponin T 0.113 H* C-Reactive Protein Total Protein Albumin Prealbumin LDL Cholesterol Direct HDL Cholesterol Arterial Blood Glucose Arterial Blood Ionized Calcium Urine WBC (Auto) 03/23/20 03/23/20 03/23/20 01:47 06:21 07:57 WBC RBC Hgb Hct MCV MCH RDW Plt Count Lymph % (Auto) [place] % (Auto) Lymph # (Auto) [place] # (Auto) Seg Neutrophils % Seg Neuts % (Manual) Lymphocytes % (Manual) Monocytes % (Manual) Basophils % (Manual) Seg Neutrophils # Seg Neutrophils # Man Lymphocytes # (Manual) Monocytes # (Manual) Eosinophils # (Manual) Basophils # (Manual) PT INR D-Dimer ABG pH POC ABG pCO2 POC ABG pO2 ABG pO2 ABG HCO3 ABG O2 Saturation ABG Base Excess ABG Hemoglobin ABG Oxyhemoglobin ABG Potassium ABG Glucose Oxyhemoglobin Carboxyhemoglobin Sodium Potassium Chloride Carbon Dioxide BUN Creatinine Glucose POC Glucose 130 H Calcium Ferritin Total Bilirubin Alkaline Phosphatase Lactate Dehydrogenase Total Creatine Kinase CK-MB (CK-2) Rel Index Troponin T 0.143 H* D 0.105 H* D C-Reactive Protein Total Protein Albumin Prealbumin LDL Cholesterol Direct HDL Cholesterol Arterial Blood Glucose Arterial Blood Ionized Calcium Urine WBC (Auto) 03/23/20 03/24/20 03/24/20 12:02 05:33 07:15 WBC 18.0 H RBC Hgb 11.0 L Hct 34.0 L MCV MCH RDW 17.4 H Plt Count 520 H Lymph % (Auto) [place] % (Auto) Lymph # (Auto) [place] # (Auto) Seg Neutrophils % Seg Neuts % (Manual) 88.0 H Lymphocytes % (Manual) 7.0 L Monocytes % (Manual) Basophils % (Manual) Seg Neutrophils # Seg Neutrophils # Man 15.8 H Lymphocytes # (Manual) Monocytes # (Manual) Eosinophils # (Manual) Basophils # (Manual) PT INR D-Dimer ABG pH POC ABG pCO2 POC ABG pO2 ABG pO2 ABG HCO3 ABG O2 Saturation ABG Base Excess ABG Hemoglobin ABG Oxyhemoglobin ABG Potassium ABG Glucose Oxyhemoglobin Carboxyhemoglobin Sodium Potassium Chloride Carbon Dioxide BUN Creatinine Glucose POC Glucose 137 H 112 H Calcium Ferritin Total Bilirubin Alkaline Phosphatase Lactate Dehydrogenase Total Creatine Kinase CK-MB (CK-2) Rel Index Troponin T C-Reactive Protein Total Protein Albumin Prealbumin LDL Cholesterol Direct HDL Cholesterol Arterial Blood Glucose Arterial Blood Ionized Calcium Urine WBC (Auto) 03/24/20 03/24/20 03/24/20 07:15 11:22 23:30 WBC RBC Hgb Hct MCV MCH RDW Plt Count Lymph % (Auto) [place] % (Auto) Lymph # (Auto) [place] # (Auto) Seg Neutrophils % Seg Neuts % (Manual) Lymphocytes % (Manual) Monocytes % (Manual) Basophils % (Manual) Seg Neutrophils # Seg Neutrophils # Man Lymphocytes # (Manual) Monocytes # (Manual) Eosinophils # (Manual) Basophils # (Manual) PT INR D-Dimer ABG pH POC ABG pCO2 POC ABG pO2 ABG pO2 ABG HCO3 ABG O2 Saturation ABG Base Excess ABG Hemoglobin ABG Oxyhemoglobin ABG Potassium ABG Glucose Oxyhemoglobin Carboxyhemoglobin Sodium Potassium Chloride 96.6 L Carbon Dioxide 38 H BUN Creatinine < 0.2 L Glucose 141 H POC Glucose 130 H 120 H Calcium Ferritin Total Bilirubin Alkaline Phosphatase Lactate Dehydrogenase Total Creatine Kinase CK-MB (CK-2) Rel Index Troponin T C-Reactive Protein Total Protein Albumin Prealbumin LDL Cholesterol Direct HDL Cholesterol Arterial Blood Glucose Arterial Blood Ionized Calcium Urine WBC (Auto) 03/25/20 03/25/20 03/25/20 05:48 17:53 23:18 WBC RBC Hgb Hct MCV MCH RDW Plt Count Lymph % (Auto) [place] % (Auto) Lymph # (Auto) [place] # (Auto) Seg Neutrophils % Seg Neuts % (Manual) Lymphocytes % (Manual) Monocytes % (Manual) Basophils % (Manual) Seg Neutrophils # Seg Neutrophils # Man Lymphocytes # (Manual) Monocytes # (Manual) Eosinophils # (Manual) Basophils # (Manual) PT INR D-Dimer ABG pH POC ABG pCO2 POC ABG pO2 ABG pO2 ABG HCO3 ABG O2 Saturation ABG Base Excess ABG Hemoglobin ABG Oxyhemoglobin ABG Potassium ABG Glucose Oxyhemoglobin Carboxyhemoglobin Sodium Potassium Chloride Carbon Dioxide BUN Creatinine Glucose POC Glucose 124 H 109 H 131 H Calcium Ferritin Total Bilirubin Alkaline Phosphatase Lactate Dehydrogenase Total Creatine Kinase CK-MB (CK-2) Rel Index Troponin T C-Reactive Protein Total Protein Albumin Prealbumin LDL Cholesterol Direct HDL Cholesterol Arterial Blood Glucose Arterial Blood Ionized Calcium Urine WBC (Auto) 03/26/20 03/26/20 03/26/20 05:21 08:49 08:49 WBC 19.7 H RBC Hgb 10.7 L Hct 33.5 L MCV MCH 27 L RDW 17.1 H Plt Count 480 H Lymph % (Auto) 5.7 L [place] % (Auto) Lymph # (Auto) 1.1 L [place] # (Auto) 1.2 H Seg Neutrophils % 87.7 H Seg Neuts % (Manual) Lymphocytes % (Manual) Monocytes % (Manual) Basophils % (Manual) Seg Neutrophils # 17.2 H Seg Neutrophils # Man Lymphocytes # (Manual) Monocytes # (Manual) Eosinophils # (Manual) Basophils # (Manual) PT INR D-Dimer ABG pH POC ABG pCO2 POC ABG pO2 ABG pO2 ABG HCO3 ABG O2 Saturation ABG Base Excess ABG Hemoglobin ABG Oxyhemoglobin ABG Potassium ABG Glucose Oxyhemoglobin Carboxyhemoglobin Sodium Potassium Chloride 97.2 L Carbon Dioxide 36 H BUN Creatinine < 0.2 L Glucose 127 H POC Glucose 116 H Calcium Ferritin Total Bilirubin Alkaline Phosphatase Lactate Dehydrogenase Total Creatine Kinase CK-MB (CK-2) Rel Index Troponin T C-Reactive Protein Total Protein Albumin Prealbumin LDL Cholesterol Direct HDL Cholesterol Arterial Blood Glucose Arterial Blood Ionized Calcium Urine WBC (Auto) 03/26/20 03/26/20 03/26/20 11:38 18:44 23:06 WBC RBC Hgb Hct MCV MCH RDW Plt Count Lymph % (Auto) [place] % (Auto) Lymph # (Auto) [place] # (Auto) Seg Neutrophils % Seg Neuts % (Manual) Lymphocytes % (Manual) Monocytes % (Manual) Basophils % (Manual) Seg Neutrophils # Seg Neutrophils # Man Lymphocytes # (Manual) Monocytes # (Manual) Eosinophils # (Manual) Basophils # (Manual) PT INR D-Dimer ABG pH POC ABG pCO2 POC ABG pO2 ABG pO2 ABG HCO3 ABG O2 Saturation ABG Base Excess ABG Hemoglobin ABG Oxyhemoglobin ABG Potassium ABG Glucose Oxyhemoglobin Carboxyhemoglobin Sodium Potassium Chloride Carbon Dioxide BUN Creatinine Glucose POC Glucose 120 H 111 H 134 H Calcium Ferritin Total Bilirubin Alkaline Phosphatase Lactate Dehydrogenase Total Creatine Kinase CK-MB (CK-2) Rel Index Troponin T C-Reactive Protein Total Protein Albumin Prealbumin LDL Cholesterol Direct HDL Cholesterol Arterial Blood Glucose Arterial Blood Ionized Calcium Urine WBC (Auto) 03/27/20 03/27/20 03/27/20 05:41 05:59 05:59 WBC 18.6 H RBC Hgb 10.1 L Hct 31.4 L MCV MCH RDW 17.2 H Plt Count Lymph % (Auto) 8.0 L [place] % (Auto) Lymph # (Auto) [place] # (Auto) 1.2 H Seg Neutrophils % 84.7 H Seg Neuts % (Manual) Lymphocytes % (Manual) Monocytes % (Manual) Basophils % (Manual) Seg Neutrophils # 15.8 H Seg Neutrophils # Man Lymphocytes # (Manual) Monocytes # (Manual) Eosinophils # (Manual) Basophils # (Manual) PT INR D-Dimer ABG pH POC ABG pCO2 POC ABG pO2 ABG pO2 ABG HCO3 ABG O2 Saturation ABG Base Excess ABG Hemoglobin ABG Oxyhemoglobin ABG Potassium ABG Glucose Oxyhemoglobin Carboxyhemoglobin Sodium Potassium Chloride Carbon Dioxide 34 H BUN Creatinine < 0.2 L Glucose 127 H POC Glucose 129 H Calcium Ferritin Total Bilirubin Alkaline Phosphatase Lactate Dehydrogenase Total Creatine Kinase CK-MB (CK-2) Rel Index Troponin T C-Reactive Protein Total Protein Albumin Prealbumin LDL Cholesterol Direct HDL Cholesterol Arterial Blood Glucose Arterial Blood Ionized Calcium Urine WBC (Auto) 03/27/20 03/27/20 03/28/20 17:28 23:22 05:23 WBC RBC Hgb Hct MCV MCH RDW Plt Count Lymph % (Auto) [place] % (Auto) Lymph # (Auto) [place] # (Auto) Seg Neutrophils % Seg Neuts % (Manual) Lymphocytes % (Manual) Monocytes % (Manual) Basophils % (Manual) Seg Neutrophils # Seg Neutrophils # Man Lymphocytes # (Manual) Monocytes # (Manual) Eosinophils # (Manual) Basophils # (Manual) PT INR D-Dimer ABG pH POC ABG pCO2 POC ABG pO2 ABG pO2 ABG HCO3 ABG O2 Saturation ABG Base Excess ABG Hemoglobin ABG Oxyhemoglobin ABG Potassium ABG Glucose Oxyhemoglobin Carboxyhemoglobin Sodium Potassium Chloride Carbon Dioxide BUN Creatinine Glucose POC Glucose 108 H 119 H 129 H Calcium Ferritin Total Bilirubin Alkaline Phosphatase Lactate Dehydrogenase Total Creatine Kinase CK-MB (CK-2) Rel Index Troponin T C-Reactive Protein Total Protein Albumin Prealbumin LDL Cholesterol Direct HDL Cholesterol Arterial Blood Glucose Arterial Blood Ionized Calcium Urine WBC (Auto) 03/28/20 03/28/20 03/28/20 10:28 10:28 11:36 WBC 23.6 H RBC 3.62 L Hgb 10.0 L Hct 30.8 L MCV MCH RDW 16.4 H Plt Count Lymph % (Auto) [place] % (Auto) Lymph # (Auto) [place] # (Auto) Seg Neutrophils % Seg Neuts % (Manual) 89.0 H Lymphocytes % (Manual) 5.0 L Monocytes % (Manual) Basophils % (Manual) Seg Neutrophils # Seg Neutrophils # Man 21.0 H Lymphocytes # (Manual) Monocytes # (Manual) 1.2 H Eosinophils # (Manual) Basophils # (Manual) 0.2 H PT INR D-Dimer ABG pH POC ABG pCO2 POC ABG pO2 ABG pO2 ABG HCO3 ABG O2 Saturation ABG Base Excess ABG Hemoglobin ABG Oxyhemoglobin ABG Potassium ABG Glucose Oxyhemoglobin Carboxyhemoglobin Sodium 134 L Potassium Chloride 94.2 L Carbon Dioxide 35 H BUN Creatinine < 0.2 L Glucose 134 H POC Glucose Calcium Ferritin Total Bilirubin Alkaline Phosphatase Lactate Dehydrogenase Total Creatine Kinase CK-MB (CK-2) Rel Index Troponin T C-Reactive Protein Total Protein Albumin Prealbumin LDL Cholesterol Direct HDL Cholesterol Arterial Blood Glucose Arterial Blood Ionized Calcium Urine WBC (Auto) 39.0 H 03/28/20 03/28/20 03/28/20 11:51 17:08 17:17 WBC RBC Hgb Hct MCV MCH RDW Plt Count Lymph % (Auto) [place] % (Auto) Lymph # (Auto) [place] # (Auto) Seg Neutrophils % Seg Neuts % (Manual) Lymphocytes % (Manual) Monocytes % (Manual) Basophils % (Manual) Seg Neutrophils # Seg Neutrophils # Man Lymphocytes # (Manual) Monocytes # (Manual) Eosinophils # (Manual) Basophils # (Manual) PT INR D-Dimer ABG pH POC ABG pCO2 POC ABG pO2 ABG pO2 ABG HCO3 ABG O2 Saturation ABG Base Excess ABG Hemoglobin ABG Oxyhemoglobin ABG Potassium ABG Glucose Oxyhemoglobin Carboxyhemoglobin Sodium Potassium Chloride Carbon Dioxide BUN Creatinine Glucose POC Glucose 123 H 112 H Calcium Ferritin Total Bilirubin Alkaline Phosphatase Lactate Dehydrogenase Total Creatine Kinase 47 L CK-MB (CK-2) Rel Index 4.6 H Troponin T 0.090 H C-Reactive Protein Total Protein Albumin Prealbumin LDL Cholesterol Direct HDL Cholesterol Arterial Blood Glucose Arterial Blood Ionized Calcium Urine WBC (Auto) 03/28/20 03/29/20 03/29/20 23:22 05:22 10:58 WBC RBC Hgb Hct MCV MCH RDW Plt Count Lymph % (Auto) [place] % (Auto) Lymph # (Auto) [place] # (Auto) Seg Neutrophils % Seg Neuts % (Manual) Lymphocytes % (Manual) Monocytes % (Manual) Basophils % (Manual) Seg Neutrophils # Seg Neutrophils # Man Lymphocytes # (Manual) Monocytes # (Manual) Eosinophils # (Manual) Basophils # (Manual) PT INR D-Dimer ABG pH POC ABG pCO2 POC ABG pO2 ABG pO2 ABG HCO3 ABG O2 Saturation ABG Base Excess ABG Hemoglobin ABG Oxyhemoglobin ABG Potassium ABG Glucose Oxyhemoglobin Carboxyhemoglobin Sodium Potassium Chloride Carbon Dioxide BUN Creatinine Glucose POC Glucose 122 H 116 H 133 H Calcium Ferritin Total Bilirubin Alkaline Phosphatase Lactate Dehydrogenase Total Creatine Kinase CK-MB (CK-2) Rel Index Troponin T C-Reactive Protein Total Protein Albumin Prealbumin LDL Cholesterol Direct HDL Cholesterol Arterial Blood Glucose Arterial Blood Ionized Calcium Urine WBC (Auto) 03/29/20 03/29/20 03/30/20 17:18 23:14 04:57 WBC RBC Hgb Hct MCV MCH RDW Plt Count Lymph % (Auto) [place] % (Auto) Lymph # (Auto) [place] # (Auto) Seg Neutrophils % Seg Neuts % (Manual) Lymphocytes % (Manual) Monocytes % (Manual) Basophils % (Manual) Seg Neutrophils # Seg Neutrophils # Man Lymphocytes # (Manual) Monocytes # (Manual) Eosinophils # (Manual) Basophils # (Manual) PT INR D-Dimer ABG pH POC ABG pCO2 POC ABG pO2 ABG pO2 ABG HCO3 ABG O2 Saturation ABG Base Excess ABG Hemoglobin ABG Oxyhemoglobin ABG Potassium ABG Glucose Oxyhemoglobin Carboxyhemoglobin Sodium Potassium Chloride Carbon Dioxide BUN Creatinine Glucose POC Glucose 111 H 114 H 130 H Calcium Ferritin Total Bilirubin Alkaline Phosphatase Lactate Dehydrogenase Total Creatine Kinase CK-MB (CK-2) Rel Index Troponin T C-Reactive Protein Total Protein Albumin Prealbumin LDL Cholesterol Direct HDL Cholesterol Arterial Blood Glucose Arterial Blood Ionized Calcium Urine WBC (Auto) 03/30/20 03/30/20 03/30/20 11:38 14:47 14:47 WBC 19.9 H RBC Hgb 10.9 L Hct 34.4 L MCV MCH 27 L RDW 16.5 H Plt Count 441 H Lymph % (Auto) 6.4 L [place] % (Auto) Lymph # (Auto) [place] # (Auto) 1.4 H Seg Neutrophils % 86.1 H Seg Neuts % (Manual) Lymphocytes % (Manual) Monocytes % (Manual) Basophils % (Manual) Seg Neutrophils # 17.1 H Seg Neutrophils # Man Lymphocytes # (Manual) Monocytes # (Manual) Eosinophils # (Manual) Basophils # (Manual) PT INR D-Dimer ABG pH POC ABG pCO2 POC ABG pO2 ABG pO2 ABG HCO3 ABG O2 Saturation ABG Base Excess ABG Hemoglobin ABG Oxyhemoglobin ABG Potassium ABG Glucose Oxyhemoglobin Carboxyhemoglobin Sodium 133 L Potassium Chloride 94.6 L Carbon Dioxide 33 H BUN Creatinine < 0.2 L Glucose 194 H POC Glucose 139 H Calcium Ferritin Total Bilirubin Alkaline Phosphatase Lactate Dehydrogenase Total Creatine Kinase CK-MB (CK-2) Rel Index Troponin T C-Reactive Protein Total Protein Albumin 2.8 L Prealbumin LDL Cholesterol Direct HDL Cholesterol Arterial Blood Glucose Arterial Blood Ionized Calcium Urine WBC (Auto) 03/30/20 03/31/20 03/31/20 17:07 05:02 15:21 WBC RBC Hgb Hct MCV MCH RDW Plt Count Lymph % (Auto) [place] % (Auto) Lymph # (Auto) [place] # (Auto) Seg Neutrophils % Seg Neuts % (Manual) Lymphocytes % (Manual) Monocytes % (Manual) Basophils % (Manual) Seg Neutrophils # Seg Neutrophils # Man Lymphocytes # (Manual) Monocytes # (Manual) Eosinophils # (Manual) Basophils # (Manual) PT INR D-Dimer ABG pH POC ABG pCO2 POC ABG pO2 ABG pO2 ABG HCO3 ABG O2 Saturation ABG Base Excess ABG Hemoglobin ABG Oxyhemoglobin ABG Potassium ABG Glucose Oxyhemoglobin Carboxyhemoglobin Sodium Potassium Chloride Carbon Dioxide BUN Creatinine Glucose POC Glucose 163 H 108 H 110 H Calcium Ferritin Total Bilirubin Alkaline Phosphatase Lactate Dehydrogenase Total Creatine Kinase CK-MB (CK-2) Rel Index Troponin T C-Reactive Protein Total Protein Albumin Prealbumin LDL Cholesterol Direct HDL Cholesterol Arterial Blood Glucose Arterial Blood Ionized Calcium Urine WBC (Auto) 03/31/20 03/31/20 04/01/20 17:58 23:19 05:09 WBC RBC Hgb Hct MCV MCH RDW Plt Count Lymph % (Auto) [place] % (Auto) Lymph # (Auto) [place] # (Auto) Seg Neutrophils % Seg Neuts % (Manual) Lymphocytes % (Manual) Monocytes % (Manual) Basophils % (Manual) Seg Neutrophils # Seg Neutrophils # Man Lymphocytes # (Manual) Monocytes # (Manual) Eosinophils # (Manual) Basophils # (Manual) PT INR D-Dimer ABG pH POC ABG pCO2 POC ABG pO2 ABG pO2 ABG HCO3 ABG O2 Saturation ABG Base Excess ABG Hemoglobin ABG Oxyhemoglobin ABG Potassium ABG Glucose Oxyhemoglobin Carboxyhemoglobin Sodium Potassium Chloride Carbon Dioxide BUN Creatinine Glucose POC Glucose 110 H 131 H 124 H Calcium Ferritin Total Bilirubin Alkaline Phosphatase Lactate Dehydrogenase Total Creatine Kinase CK-MB (CK-2) Rel Index Troponin T C-Reactive Protein Total Protein Albumin Prealbumin LDL Cholesterol Direct HDL Cholesterol Arterial Blood Glucose Arterial Blood Ionized Calcium Urine WBC (Auto) 04/01/20 04/01/20 04/01/20 11:50 17:01 23:21 WBC RBC Hgb Hct MCV MCH RDW Plt Count Lymph % (Auto) [place] % (Auto) Lymph # (Auto) [place] # (Auto) Seg Neutrophils % Seg Neuts % (Manual) Lymphocytes % (Manual) Monocytes % (Manual) Basophils % (Manual) Seg Neutrophils # Seg Neutrophils # Man Lymphocytes # (Manual) Monocytes # (Manual) Eosinophils # (Manual) Basophils # (Manual) PT INR D-Dimer ABG pH POC ABG pCO2 POC ABG pO2 ABG pO2 ABG HCO3 ABG O2 Saturation ABG Base Excess ABG Hemoglobin ABG Oxyhemoglobin ABG Potassium ABG Glucose Oxyhemoglobin Carboxyhemoglobin Sodium Potassium Chloride Carbon Dioxide BUN Creatinine Glucose POC Glucose 136 H 115 H 124 H Calcium Ferritin Total Bilirubin Alkaline Phosphatase Lactate Dehydrogenase Total Creatine Kinase CK-MB (CK-2) Rel Index Troponin T C-Reactive Protein Total Protein Albumin Prealbumin LDL Cholesterol Direct HDL Cholesterol Arterial Blood Glucose Arterial Blood Ionized Calcium Urine WBC (Auto) 04/02/20 04/02/20 04/02/20 05:27 11:58 17:58 WBC RBC Hgb Hct MCV MCH RDW Plt Count Lymph % (Auto) [place] % (Auto) Lymph # (Auto) [place] # (Auto) Seg Neutrophils % Seg Neuts % (Manual) Lymphocytes % (Manual) Monocytes % (Manual) Basophils % (Manual) Seg Neutrophils # Seg Neutrophils # Man Lymphocytes # (Manual) Monocytes # (Manual) Eosinophils # (Manual) Basophils # (Manual) PT INR D-Dimer ABG pH POC ABG pCO2 POC ABG pO2 ABG pO2 ABG HCO3 ABG O2 Saturation ABG Base Excess ABG Hemoglobin ABG Oxyhemoglobin ABG Potassium ABG Glucose Oxyhemoglobin Carboxyhemoglobin Sodium Potassium Chloride Carbon Dioxide BUN Creatinine Glucose POC Glucose 117 H 133 H 122 H Calcium Ferritin Total Bilirubin Alkaline Phosphatase Lactate Dehydrogenase Total Creatine Kinase CK-MB (CK-2) Rel Index Troponin T C-Reactive Protein Total Protein Albumin Prealbumin LDL Cholesterol Direct HDL Cholesterol Arterial Blood Glucose Arterial Blood Ionized Calcium Urine WBC (Auto) 04/02/20 04/03/20 04/03/20 23:12 05:11 11:11 WBC RBC Hgb Hct MCV MCH RDW Plt Count Lymph % (Auto) [place] % (Auto) Lymph # (Auto) [place] # (Auto) Seg Neutrophils % Seg Neuts % (Manual) Lymphocytes % (Manual) Monocytes % (Manual) Basophils % (Manual) Seg Neutrophils # Seg Neutrophils # Man Lymphocytes # (Manual) Monocytes # (Manual) Eosinophils # (Manual) Basophils # (Manual) PT INR D-Dimer ABG pH POC ABG pCO2 POC ABG pO2 ABG pO2 ABG HCO3 ABG O2 Saturation ABG Base Excess ABG Hemoglobin ABG Oxyhemoglobin ABG Potassium ABG Glucose Oxyhemoglobin Carboxyhemoglobin Sodium Potassium Chloride Carbon Dioxide BUN Creatinine Glucose POC Glucose 130 H 139 H 136 H Calcium Ferritin Total Bilirubin Alkaline Phosphatase Lactate Dehydrogenase Total Creatine Kinase CK-MB (CK-2) Rel Index Troponin T C-Reactive Protein Total Protein Albumin Prealbumin LDL Cholesterol Direct HDL Cholesterol Arterial Blood Glucose Arterial Blood Ionized Calcium Urine WBC (Auto) 04/03/20 04/03/20 04/04/20 16:51 23:25 05:29 WBC RBC Hgb Hct MCV MCH RDW Plt Count Lymph % (Auto) [place] % (Auto) Lymph # (Auto) [place] # (Auto) Seg Neutrophils % Seg Neuts % (Manual) Lymphocytes % (Manual) Monocytes % (Manual) Basophils % (Manual) Seg Neutrophils # Seg Neutrophils # Man Lymphocytes # (Manual) Monocytes # (Manual) Eosinophils # (Manual) Basophils # (Manual) PT INR D-Dimer ABG pH POC ABG pCO2 POC ABG pO2 ABG pO2 ABG HCO3 ABG O2 Saturation ABG Base Excess ABG Hemoglobin ABG Oxyhemoglobin ABG Potassium ABG Glucose Oxyhemoglobin Carboxyhemoglobin Sodium Potassium Chloride Carbon Dioxide BUN Creatinine Glucose POC Glucose 118 H 111 H 126 H Calcium Ferritin Total Bilirubin Alkaline Phosphatase Lactate Dehydrogenase Total Creatine Kinase CK-MB (CK-2) Rel Index Troponin T C-Reactive Protein Total Protein Albumin Prealbumin LDL Cholesterol Direct HDL Cholesterol Arterial Blood Glucose Arterial Blood Ionized Calcium Urine WBC (Auto) 04/04/20 04/04/20 04/04/20 11:47 17:41 23:05 WBC RBC Hgb Hct MCV MCH RDW Plt Count Lymph % (Auto) [place] % (Auto) Lymph # (Auto) [place] # (Auto) Seg Neutrophils % Seg Neuts % (Manual) Lymphocytes % (Manual) Monocytes % (Manual) Basophils % (Manual) Seg Neutrophils # Seg Neutrophils # Man Lymphocytes # (Manual) Monocytes # (Manual) Eosinophils # (Manual) Basophils # (Manual) PT INR D-Dimer ABG pH POC ABG pCO2 POC ABG pO2 ABG pO2 ABG HCO3 ABG O2 Saturation ABG Base Excess ABG Hemoglobin ABG Oxyhemoglobin ABG Potassium ABG Glucose Oxyhemoglobin Carboxyhemoglobin Sodium Potassium Chloride Carbon Dioxide BUN Creatinine Glucose POC Glucose 123 H 120 H 119 H Calcium Ferritin Total Bilirubin Alkaline Phosphatase Lactate Dehydrogenase Total Creatine Kinase CK-MB (CK-2) Rel Index Troponin T C-Reactive Protein Total Protein Albumin Prealbumin LDL Cholesterol Direct HDL Cholesterol Arterial Blood Glucose Arterial Blood Ionized Calcium Urine WBC (Auto) 04/05/20 04/05/20 04/05/20 05:14 12:16 18:48 WBC RBC Hgb Hct MCV MCH RDW Plt Count Lymph % (Auto) [place] % (Auto) Lymph # (Auto) [place] # (Auto) Seg Neutrophils % Seg Neuts % (Manual) Lymphocytes % (Manual) Monocytes % (Manual) Basophils % (Manual) Seg Neutrophils # Seg Neutrophils # Man Lymphocytes # (Manual) Monocytes # (Manual) Eosinophils # (Manual) Basophils # (Manual) PT INR D-Dimer ABG pH POC ABG pCO2 POC ABG pO2 ABG pO2 ABG HCO3 ABG O2 Saturation ABG Base Excess ABG Hemoglobin ABG Oxyhemoglobin ABG Potassium ABG Glucose Oxyhemoglobin Carboxyhemoglobin Sodium Potassium Chloride Carbon Dioxide BUN Creatinine Glucose POC Glucose 123 H 148 H 106 H Calcium Ferritin Total Bilirubin Alkaline Phosphatase Lactate Dehydrogenase Total Creatine Kinase CK-MB (CK-2) Rel Index Troponin T C-Reactive Protein Total Protein Albumin Prealbumin LDL Cholesterol Direct HDL Cholesterol Arterial Blood Glucose Arterial Blood Ionized Calcium Urine WBC (Auto) 04/06/20 04/06/20 04/06/20 00:47 03:26 08:24 WBC RBC Hgb Hct MCV MCH RDW Plt Count Lymph % (Auto) [place] % (Auto) Lymph # (Auto) [place] # (Auto) Seg Neutrophils % Seg Neuts % (Manual) Lymphocytes % (Manual) Monocytes % (Manual) Basophils % (Manual) Seg Neutrophils # Seg Neutrophils # Man Lymphocytes # (Manual) Monocytes # (Manual) Eosinophils # (Manual) Basophils # (Manual) PT INR D-Dimer ABG pH POC ABG pCO2 POC ABG pO2 ABG pO2 ABG HCO3 ABG O2 Saturation ABG Base Excess ABG Hemoglobin ABG Oxyhemoglobin ABG Potassium ABG Glucose Oxyhemoglobin Carboxyhemoglobin Sodium Potassium Chloride Carbon Dioxide BUN Creatinine Glucose POC Glucose 129 H 134 H 131 H Calcium Ferritin Total Bilirubin Alkaline Phosphatase Lactate Dehydrogenase Total Creatine Kinase CK-MB (CK-2) Rel Index Troponin T C-Reactive Protein Total Protein Albumin Prealbumin LDL Cholesterol Direct HDL Cholesterol Arterial Blood Glucose Arterial Blood Ionized Calcium Urine WBC (Auto) 04/06/20 04/06/20 04/06/20 11:16 16:27 23:01 WBC RBC Hgb Hct MCV MCH RDW Plt Count Lymph % (Auto) [place] % (Auto) Lymph # (Auto) [place] # (Auto) Seg Neutrophils % Seg Neuts % (Manual) Lymphocytes % (Manual) Monocytes % (Manual) Basophils % (Manual) Seg Neutrophils # Seg Neutrophils # Man Lymphocytes # (Manual) Monocytes # (Manual) Eosinophils # (Manual) Basophils # (Manual) PT INR D-Dimer ABG pH POC ABG pCO2 POC ABG pO2 ABG pO2 ABG HCO3 ABG O2 Saturation ABG Base Excess ABG Hemoglobin ABG Oxyhemoglobin ABG Potassium ABG Glucose Oxyhemoglobin Carboxyhemoglobin Sodium Potassium Chloride Carbon Dioxide BUN Creatinine Glucose POC Glucose 131 H 107 H 125 H Calcium Ferritin Total Bilirubin Alkaline Phosphatase Lactate Dehydrogenase Total Creatine Kinase CK-MB (CK-2) Rel Index Troponin T C-Reactive Protein Total Protein Albumin Prealbumin LDL Cholesterol Direct HDL Cholesterol Arterial Blood Glucose Arterial Blood Ionized Calcium Urine WBC (Auto) 04/07/20 04/07/20 04/07/20 05:24 12:41 17:40 WBC RBC Hgb Hct MCV MCH RDW Plt Count Lymph % (Auto) [place] % (Auto) Lymph # (Auto) [place] # (Auto) Seg Neutrophils % Seg Neuts % (Manual) Lymphocytes % (Manual) Monocytes % (Manual) Basophils % (Manual) Seg Neutrophils # Seg Neutrophils # Man Lymphocytes # (Manual) Monocytes # (Manual) Eosinophils # (Manual) Basophils # (Manual) PT INR D-Dimer ABG pH POC ABG pCO2 POC ABG pO2 ABG pO2 ABG HCO3 ABG O2 Saturation ABG Base Excess ABG Hemoglobin ABG Oxyhemoglobin ABG Potassium ABG Glucose Oxyhemoglobin Carboxyhemoglobin Sodium Potassium Chloride Carbon Dioxide BUN Creatinine Glucose POC Glucose 125 H 145 H 123 H Calcium Ferritin Total Bilirubin Alkaline Phosphatase Lactate Dehydrogenase Total Creatine Kinase CK-MB (CK-2) Rel Index Troponin T C-Reactive Protein Total Protein Albumin Prealbumin LDL Cholesterol Direct HDL Cholesterol Arterial Blood Glucose Arterial Blood Ionized Calcium Urine WBC (Auto) 04/07/20 04/08/20 04/08/20 23:22 05:40 11:29 WBC RBC Hgb Hct MCV MCH RDW Plt Count Lymph % (Auto) [place] % (Auto) Lymph # (Auto) [place] # (Auto) Seg Neutrophils % Seg Neuts % (Manual) Lymphocytes % (Manual) Monocytes % (Manual) Basophils % (Manual) Seg Neutrophils # Seg Neutrophils # Man Lymphocytes # (Manual) Monocytes # (Manual) Eosinophils # (Manual) Basophils # (Manual) PT INR D-Dimer ABG pH POC ABG pCO2 POC ABG pO2 ABG pO2 ABG HCO3 ABG O2 Saturation ABG Base Excess ABG Hemoglobin ABG Oxyhemoglobin ABG Potassium ABG Glucose Oxyhemoglobin Carboxyhemoglobin Sodium Potassium Chloride Carbon Dioxide BUN Creatinine Glucose POC Glucose 133 H 125 H 116 H Calcium Ferritin Total Bilirubin Alkaline Phosphatase Lactate Dehydrogenase Total Creatine Kinase CK-MB (CK-2) Rel Index Troponin T C-Reactive Protein Total Protein Albumin Prealbumin LDL Cholesterol Direct HDL Cholesterol Arterial Blood Glucose Arterial Blood Ionized Calcium Urine WBC (Auto) 04/08/20 04/09/20 04/09/20 17:43 05:47 12:22 WBC RBC Hgb Hct MCV MCH RDW Plt Count Lymph % (Auto) [place] % (Auto) Lymph # (Auto) [place] # (Auto) Seg Neutrophils % Seg Neuts % (Manual) Lymphocytes % (Manual) Monocytes % (Manual) Basophils % (Manual) Seg Neutrophils # Seg Neutrophils # Man Lymphocytes # (Manual) Monocytes # (Manual) Eosinophils # (Manual) Basophils # (Manual) PT INR D-Dimer ABG pH POC ABG pCO2 POC ABG pO2 ABG pO2 ABG HCO3 ABG O2 Saturation ABG Base Excess ABG Hemoglobin ABG Oxyhemoglobin ABG Potassium ABG Glucose Oxyhemoglobin Carboxyhemoglobin Sodium Potassium Chloride Carbon Dioxide BUN Creatinine Glucose POC Glucose 123 H 108 H 116 H Calcium Ferritin Total Bilirubin Alkaline Phosphatase Lactate Dehydrogenase Total Creatine Kinase CK-MB (CK-2) Rel Index Troponin T C-Reactive Protein Total Protein Albumin Prealbumin LDL Cholesterol Direct HDL Cholesterol Arterial Blood Glucose Arterial Blood Ionized Calcium Urine WBC (Auto) 04/09/20 04/09/20 04/10/20 17:24 23:52 06:10 WBC RBC Hgb Hct MCV MCH RDW Plt Count Lymph % (Auto) [place] % (Auto) Lymph # (Auto) [place] # (Auto) Seg Neutrophils % Seg Neuts % (Manual) Lymphocytes % (Manual) Monocytes % (Manual) Basophils % (Manual) Seg Neutrophils # Seg Neutrophils # Man Lymphocytes # (Manual) Monocytes # (Manual) Eosinophils # (Manual) Basophils # (Manual) PT INR D-Dimer ABG pH POC ABG pCO2 POC ABG pO2 ABG pO2 ABG HCO3 ABG O2 Saturation ABG Base Excess ABG Hemoglobin ABG Oxyhemoglobin ABG Potassium ABG Glucose Oxyhemoglobin Carboxyhemoglobin Sodium Potassium Chloride Carbon Dioxide BUN Creatinine Glucose POC Glucose 108 H 126 H 122 H Calcium Ferritin Total Bilirubin Alkaline Phosphatase Lactate Dehydrogenase Total Creatine Kinase CK-MB (CK-2) Rel Index Troponin T C-Reactive Protein Total Protein Albumin Prealbumin LDL Cholesterol Direct HDL Cholesterol Arterial Blood Glucose Arterial Blood Ionized Calcium Urine WBC (Auto) 04/10/20 04/10/20 04/10/20 11:27 18:11 23:24 WBC RBC Hgb Hct MCV MCH RDW Plt Count Lymph % (Auto) [place] % (Auto) Lymph # (Auto) [place] # (Auto) Seg Neutrophils % Seg Neuts % (Manual) Lymphocytes % (Manual) Monocytes % (Manual) Basophils % (Manual) Seg Neutrophils # Seg Neutrophils # Man Lymphocytes # (Manual) Monocytes # (Manual) Eosinophils # (Manual) Basophils # (Manual) PT INR D-Dimer ABG pH POC ABG pCO2 POC ABG pO2 ABG pO2 ABG HCO3 ABG O2 Saturation ABG Base Excess ABG Hemoglobin ABG Oxyhemoglobin ABG Potassium ABG Glucose Oxyhemoglobin Carboxyhemoglobin Sodium Potassium Chloride Carbon Dioxide BUN Creatinine Glucose POC Glucose 129 H 125 H 107 H Calcium Ferritin Total Bilirubin Alkaline Phosphatase Lactate Dehydrogenase Total Creatine Kinase CK-MB (CK-2) Rel Index Troponin T C-Reactive Protein Total Protein Albumin Prealbumin LDL Cholesterol Direct HDL Cholesterol Arterial Blood Glucose Arterial Blood Ionized Calcium Urine WBC (Auto) 04/11/20 04/11/20 04/11/20 05:28 11:46 23:49 WBC RBC Hgb Hct MCV MCH RDW Plt Count Lymph % (Auto) [place] % (Auto) Lymph # (Auto) [place] # (Auto) Seg Neutrophils % Seg Neuts % (Manual) Lymphocytes % (Manual) Monocytes % (Manual) Basophils % (Manual) Seg Neutrophils # Seg Neutrophils # Man Lymphocytes # (Manual) Monocytes # (Manual) Eosinophils # (Manual) Basophils # (Manual) PT INR D-Dimer ABG pH POC ABG pCO2 POC ABG pO2 ABG pO2 ABG HCO3 ABG O2 Saturation ABG Base Excess ABG Hemoglobin ABG Oxyhemoglobin ABG Potassium ABG Glucose Oxyhemoglobin Carboxyhemoglobin Sodium Potassium Chloride Carbon Dioxide BUN Creatinine Glucose POC Glucose 122 H 122 H 116 H Calcium Ferritin Total Bilirubin Alkaline Phosphatase Lactate Dehydrogenase Total Creatine Kinase CK-MB (CK-2) Rel Index Troponin T C-Reactive Protein Total Protein Albumin Prealbumin LDL Cholesterol Direct HDL Cholesterol Arterial Blood Glucose Arterial Blood Ionized Calcium Urine WBC (Auto) 04/12/20 04/12/20 04/12/20 09:07 09:07 11:39 WBC 13.1 H RBC 3.59 L Hgb 9.5 L Hct 29.8 L MCV 83 L MCH 26 L RDW 16.6 H Plt Count 591 H Lymph % (Auto) [place] % (Auto) Lymph # (Auto) [place] # (Auto) Seg Neutrophils % Seg Neuts % (Manual) 86.0 H Lymphocytes % (Manual) 7.0 L Monocytes % (Manual) Basophils % (Manual) Seg Neutrophils # Seg Neutrophils # Man 11.3 H Lymphocytes # (Manual) 0.9 L Monocytes # (Manual) Eosinophils # (Manual) Basophils # (Manual) PT INR D-Dimer ABG pH POC ABG pCO2 POC ABG pO2 ABG pO2 ABG HCO3 ABG O2 Saturation ABG Base Excess ABG Hemoglobin ABG Oxyhemoglobin ABG Potassium ABG Glucose Oxyhemoglobin Carboxyhemoglobin Sodium Potassium Chloride Carbon Dioxide 36 H BUN Creatinine < 0.2 L Glucose 132 H POC Glucose 136 H Calcium Ferritin Total Bilirubin Alkaline Phosphatase Lactate Dehydrogenase Total Creatine Kinase CK-MB (CK-2) Rel Index Troponin T C-Reactive Protein Total Protein Albumin 2.7 L Prealbumin LDL Cholesterol Direct HDL Cholesterol Arterial Blood Glucose Arterial Blood Ionized Calcium Urine WBC (Auto) 04/12/20 04/12/20 04/13/20 18:13 23:07 05:45 WBC RBC Hgb Hct MCV MCH RDW Plt Count Lymph % (Auto) [place] % (Auto) Lymph # (Auto) [place] # (Auto) Seg Neutrophils % Seg Neuts % (Manual) Lymphocytes % (Manual) Monocytes % (Manual) Basophils % (Manual) Seg Neutrophils # Seg Neutrophils # Man Lymphocytes # (Manual) Monocytes # (Manual) Eosinophils # (Manual) Basophils # (Manual) PT INR D-Dimer ABG pH POC ABG pCO2 POC ABG pO2 ABG pO2 ABG HCO3 ABG O2 Saturation ABG Base Excess ABG Hemoglobin ABG Oxyhemoglobin ABG Potassium ABG Glucose Oxyhemoglobin Carboxyhemoglobin Sodium Potassium Chloride Carbon Dioxide BUN Creatinine Glucose POC Glucose 107 H 106 H 125 H Calcium Ferritin Total Bilirubin Alkaline Phosphatase Lactate Dehydrogenase Total Creatine Kinase CK-MB (CK-2) Rel Index Troponin T C-Reactive Protein Total Protein Albumin Prealbumin LDL Cholesterol Direct HDL Cholesterol Arterial Blood Glucose Arterial Blood Ionized Calcium Urine WBC (Auto) 04/13/20 04/13/20 04/13/20 11:18 17:56 23:33 WBC RBC Hgb Hct MCV MCH RDW Plt Count Lymph % (Auto) [place] % (Auto) Lymph # (Auto) [place] # (Auto) Seg Neutrophils % Seg Neuts % (Manual) Lymphocytes % (Manual) Monocytes % (Manual) Basophils % (Manual) Seg Neutrophils # Seg Neutrophils # Man Lymphocytes # (Manual) Monocytes # (Manual) Eosinophils # (Manual) Basophils # (Manual) PT INR D-Dimer ABG pH POC ABG pCO2 POC ABG pO2 ABG pO2 ABG HCO3 ABG O2 Saturation ABG Base Excess ABG Hemoglobin ABG Oxyhemoglobin ABG Potassium ABG Glucose Oxyhemoglobin Carboxyhemoglobin Sodium Potassium Chloride Carbon Dioxide BUN Creatinine Glucose POC Glucose 133 H 110 H 114 H Calcium Ferritin Total Bilirubin Alkaline Phosphatase Lactate Dehydrogenase Total Creatine Kinase CK-MB (CK-2) Rel Index Troponin T C-Reactive Protein Total Protein Albumin Prealbumin LDL Cholesterol Direct HDL Cholesterol Arterial Blood Glucose Arterial Blood Ionized Calcium Urine WBC (Auto) 04/14/20 04/14/20 04/14/20 05:58 11:45 17:48 WBC RBC Hgb Hct MCV MCH RDW Plt Count Lymph % (Auto) [place] % (Auto) Lymph # (Auto) [place] # (Auto) Seg Neutrophils % Seg Neuts % (Manual) Lymphocytes % (Manual) Monocytes % (Manual) Basophils % (Manual) Seg Neutrophils # Seg Neutrophils # Man Lymphocytes # (Manual) Monocytes # (Manual) Eosinophils # (Manual) Basophils # (Manual) PT INR D-Dimer ABG pH POC ABG pCO2 POC ABG pO2 ABG pO2 ABG HCO3 ABG O2 Saturation ABG Base Excess ABG Hemoglobin ABG Oxyhemoglobin ABG Potassium ABG Glucose Oxyhemoglobin Carboxyhemoglobin Sodium Potassium Chloride Carbon Dioxide BUN Creatinine Glucose POC Glucose 115 H 122 H 124 H Calcium Ferritin Total Bilirubin Alkaline Phosphatase Lactate Dehydrogenase Total Creatine Kinase CK-MB (CK-2) Rel Index Troponin T C-Reactive Protein Total Protein Albumin Prealbumin LDL Cholesterol Direct HDL Cholesterol Arterial Blood Glucose Arterial Blood Ionized Calcium Urine WBC (Auto) 04/15/20 04/15/20 04/15/20 00:11 05:38 11:31 WBC RBC Hgb Hct MCV MCH RDW Plt Count Lymph % (Auto) [place] % (Auto) Lymph # (Auto) [place] # (Auto) Seg Neutrophils % Seg Neuts % (Manual) Lymphocytes % (Manual) Monocytes % (Manual) Basophils % (Manual) Seg Neutrophils # Seg Neutrophils # Man Lymphocytes # (Manual) Monocytes # (Manual) Eosinophils # (Manual) Basophils # (Manual) PT INR D-Dimer ABG pH POC ABG pCO2 POC ABG pO2 ABG pO2 ABG HCO3 ABG O2 Saturation ABG Base Excess ABG Hemoglobin ABG Oxyhemoglobin ABG Potassium ABG Glucose Oxyhemoglobin Carboxyhemoglobin Sodium Potassium Chloride Carbon Dioxide BUN Creatinine Glucose POC Glucose 120 H 109 H 123 H Calcium Ferritin Total Bilirubin Alkaline Phosphatase Lactate Dehydrogenase Total Creatine Kinase CK-MB (CK-2) Rel Index Troponin T C-Reactive Protein Total Protein Albumin Prealbumin LDL Cholesterol Direct HDL Cholesterol Arterial Blood Glucose Arterial Blood Ionized Calcium Urine WBC (Auto) 04/15/20 04/16/20 04/16/20 17:35 06:00 11:29 WBC RBC Hgb Hct MCV MCH RDW Plt Count Lymph % (Auto) [place] % (Auto) Lymph # (Auto) [place] # (Auto) Seg Neutrophils % Seg Neuts % (Manual) Lymphocytes % (Manual) Monocytes % (Manual) Basophils % (Manual) Seg Neutrophils # Seg Neutrophils # Man Lymphocytes # (Manual) Monocytes # (Manual) Eosinophils # (Manual) Basophils # (Manual) PT INR D-Dimer ABG pH POC ABG pCO2 POC ABG pO2 ABG pO2 ABG HCO3 ABG O2 Saturation ABG Base Excess ABG Hemoglobin ABG Oxyhemoglobin ABG Potassium ABG Glucose Oxyhemoglobin Carboxyhemoglobin Sodium Potassium Chloride Carbon Dioxide BUN Creatinine Glucose POC Glucose 111 H 142 H 108 H Calcium Ferritin Total Bilirubin Alkaline Phosphatase Lactate Dehydrogenase Total Creatine Kinase CK-MB (CK-2) Rel Index Troponin T C-Reactive Protein Total Protein Albumin Prealbumin LDL Cholesterol Direct HDL Cholesterol Arterial Blood Glucose Arterial Blood Ionized Calcium Urine WBC (Auto) 04/17/20 04/17/20 04/17/20 05:09 06:53 06:53 WBC 14.2 H RBC Hgb 10.1 L Hct 31.5 L MCV MCH 27 L RDW 17.2 H Plt Count 643 H Lymph % (Auto) [place] % (Auto) Lymph # (Auto) [place] # (Auto) Seg Neutrophils % Seg Neuts % (Manual) Lymphocytes % (Manual) Monocytes % (Manual) Basophils % (Manual) Seg Neutrophils # Seg Neutrophils # Man Lymphocytes # (Manual) Monocytes # (Manual) Eosinophils # (Manual) Basophils # (Manual) PT INR D-Dimer ABG pH POC ABG pCO2 POC ABG pO2 ABG pO2 ABG HCO3 ABG O2 Saturation ABG Base Excess ABG Hemoglobin ABG Oxyhemoglobin ABG Potassium ABG Glucose Oxyhemoglobin Carboxyhemoglobin Sodium Potassium Chloride 97.7 L Carbon Dioxide 38 H BUN Creatinine < 0.2 L Glucose 126 H POC Glucose 131 H Calcium Ferritin Total Bilirubin Alkaline Phosphatase Lactate Dehydrogenase Total Creatine Kinase CK-MB (CK-2) Rel Index Troponin T C-Reactive Protein Total Protein Albumin Prealbumin LDL Cholesterol Direct HDL Cholesterol Arterial Blood Glucose Arterial Blood Ionized Calcium Urine WBC (Auto) 04/17/20 04/18/20 04/18/20 11:21 00:23 04:01 WBC 15.3 H RBC Hgb 10.1 L Hct 31.9 L MCV 82 L MCH 26 L RDW 17.2 H Plt Count 665 H Lymph % (Auto) 12.9 L [place] % (Auto) Lymph # (Auto) [place] # (Auto) 1.1 H Seg Neutrophils % 78.0 H Seg Neuts % (Manual) Lymphocytes % (Manual) Monocytes % (Manual) Basophils % (Manual) Seg Neutrophils # 11.9 H Seg Neutrophils # Man Lymphocytes # (Manual) Monocytes # (Manual) Eosinophils # (Manual) Basophils # (Manual) PT INR D-Dimer ABG pH POC ABG pCO2 POC ABG pO2 ABG pO2 ABG HCO3 ABG O2 Saturation ABG Base Excess ABG Hemoglobin ABG Oxyhemoglobin ABG Potassium ABG Glucose Oxyhemoglobin Carboxyhemoglobin Sodium Potassium Chloride Carbon Dioxide BUN Creatinine Glucose POC Glucose 140 H 125 H Calcium Ferritin Total Bilirubin Alkaline Phosphatase Lactate Dehydrogenase Total Creatine Kinase CK-MB (CK-2) Rel Index Troponin T C-Reactive Protein Total Protein Albumin Prealbumin LDL Cholesterol Direct HDL Cholesterol Arterial Blood Glucose Arterial Blood Ionized Calcium Urine WBC (Auto) 04/18/20 04/18/20 04/18/20 04:01 11:29 17:30 WBC RBC Hgb Hct MCV MCH RDW Plt Count Lymph % (Auto) [place] % (Auto) Lymph # (Auto) [place] # (Auto) Seg Neutrophils % Seg Neuts % (Manual) Lymphocytes % (Manual) Monocytes % (Manual) Basophils % (Manual) Seg Neutrophils # Seg Neutrophils # Man Lymphocytes # (Manual) Monocytes # (Manual) Eosinophils # (Manual) Basophils # (Manual) PT INR D-Dimer ABG pH POC ABG pCO2 POC ABG pO2 ABG pO2 ABG HCO3 ABG O2 Saturation ABG Base Excess ABG Hemoglobin ABG Oxyhemoglobin ABG Potassium ABG Glucose Oxyhemoglobin Carboxyhemoglobin Sodium Potassium Chloride 97.0 L Carbon Dioxide 38 H BUN Creatinine < 0.2 L Glucose 117 H POC Glucose 136 H 107 H Calcium Ferritin Total Bilirubin Alkaline Phosphatase Lactate Dehydrogenase Total Creatine Kinase CK-MB (CK-2) Rel Index Troponin T C-Reactive Protein Total Protein Albumin Prealbumin LDL Cholesterol Direct HDL Cholesterol Arterial Blood Glucose Arterial Blood Ionized Calcium Urine WBC (Auto) 04/18/20 04/19/20 04/19/20 23:19 06:51 06:51 WBC 12.2 H RBC Hgb 9.8 L Hct 31.1 L MCV 82 L MCH 26 L RDW 17.2 H Plt Count 549 H Lymph % (Auto) 6.5 L [place] % (Auto) Lymph # (Auto) 0.8 L [place] # (Auto) Seg Neutrophils % 86.7 H Seg Neuts % (Manual) Lymphocytes % (Manual) Monocytes % (Manual) Basophils % (Manual) Seg Neutrophils # 10.6 H Seg Neutrophils # Man Lymphocytes # (Manual) Monocytes # (Manual) Eosinophils # (Manual) Basophils # (Manual) PT INR D-Dimer ABG pH POC ABG pCO2 POC ABG pO2 ABG pO2 ABG HCO3 ABG O2 Saturation ABG Base Excess ABG Hemoglobin ABG Oxyhemoglobin ABG Potassium ABG Glucose Oxyhemoglobin Carboxyhemoglobin Sodium Potassium Chloride 97.8 L Carbon Dioxide 38 H BUN Creatinine < 0.2 L Glucose 123 H POC Glucose 127 H Calcium Ferritin Total Bilirubin Alkaline Phosphatase Lactate Dehydrogenase Total Creatine Kinase CK-MB (CK-2) Rel Index Troponin T C-Reactive Protein Total Protein Albumin Prealbumin LDL Cholesterol Direct HDL Cholesterol Arterial Blood Glucose Arterial Blood Ionized Calcium Urine WBC (Auto) 04/19/20 04/19/20 04/20/20 13:41 18:33 05:56 WBC RBC Hgb Hct MCV MCH RDW Plt Count Lymph % (Auto) [place] % (Auto) Lymph # (Auto) [place] # (Auto) Seg Neutrophils % Seg Neuts % (Manual) Lymphocytes % (Manual) Monocytes % (Manual) Basophils % (Manual) Seg Neutrophils # Seg Neutrophils # Man Lymphocytes # (Manual) Monocytes # (Manual) Eosinophils # (Manual) Basophils # (Manual) PT INR D-Dimer ABG pH POC ABG pCO2 POC ABG pO2 ABG pO2 ABG HCO3 ABG O2 Saturation ABG Base Excess ABG Hemoglobin ABG Oxyhemoglobin ABG Potassium ABG Glucose Oxyhemoglobin Carboxyhemoglobin Sodium Potassium Chloride Carbon Dioxide BUN Creatinine Glucose POC Glucose 116 H 124 H 130 H Calcium Ferritin Total Bilirubin Alkaline Phosphatase Lactate Dehydrogenase Total Creatine Kinase CK-MB (CK-2) Rel Index Troponin T C-Reactive Protein Total Protein Albumin Prealbumin LDL Cholesterol Direct HDL Cholesterol Arterial Blood Glucose Arterial Blood Ionized Calcium Urine WBC (Auto) 04/20/20 04/20/20 04/20/20 06:28 06:28 11:46 WBC RBC Hgb 10.2 L Hct 31.5 L MCV 82 L MCH 27 L RDW 17.1 H Plt Count 546 H Lymph % (Auto) 10.0 L [place] % (Auto) 9.8 H Lymph # (Auto) 1.1 L [place] # (Auto) 1.1 H Seg Neutrophils % 78.4 H Seg Neuts % (Manual) Lymphocytes % (Manual) Monocytes % (Manual) Basophils % (Manual) Seg Neutrophils # 8.5 H Seg Neutrophils # Man Lymphocytes # (Manual) Monocytes # (Manual) Eosinophils # (Manual) Basophils # (Manual) PT INR D-Dimer ABG pH POC ABG pCO2 POC ABG pO2 ABG pO2 ABG HCO3 ABG O2 Saturation ABG Base Excess ABG Hemoglobin ABG Oxyhemoglobin ABG Potassium ABG Glucose Oxyhemoglobin Carboxyhemoglobin Sodium Potassium Chloride 97.0 L Carbon Dioxide 38 H BUN Creatinine < 0.2 L Glucose 138 H POC Glucose 130 H Calcium Ferritin Total Bilirubin Alkaline Phosphatase Lactate Dehydrogenase Total Creatine Kinase CK-MB (CK-2) Rel Index Troponin T C-Reactive Protein Total Protein Albumin Prealbumin LDL Cholesterol Direct HDL Cholesterol Arterial Blood Glucose Arterial Blood Ionized Calcium Urine WBC (Auto) 04/20/20 04/21/20 04/21/20 23:31 05:55 05:55 WBC RBC Hgb 10.0 L Hct 31.1 L MCV 82 L MCH 26 L RDW 17.0 H Plt Count 535 H Lymph % (Auto) [place] % (Auto) 9.2 H Lymph # (Auto) 1.1 L [place] # (Auto) Seg Neutrophils % 75.4 H Seg Neuts % (Manual) Lymphocytes % (Manual) Monocytes % (Manual) Basophils % (Manual) Seg Neutrophils # Seg Neutrophils # Man Lymphocytes # (Manual) Monocytes # (Manual) Eosinophils # (Manual) Basophils # (Manual) PT INR D-Dimer ABG pH POC ABG pCO2 POC ABG pO2 ABG pO2 ABG HCO3 ABG O2 Saturation ABG Base Excess ABG Hemoglobin ABG Oxyhemoglobin ABG Potassium ABG Glucose Oxyhemoglobin Carboxyhemoglobin Sodium Potassium Chloride 95.0 L Carbon Dioxide 34 H BUN Creatinine < 0.2 L Glucose 125 H POC Glucose 116 H Calcium Ferritin Total Bilirubin Alkaline Phosphatase Lactate Dehydrogenase Total Creatine Kinase CK-MB (CK-2) Rel Index Troponin T C-Reactive Protein Total Protein Albumin Prealbumin LDL Cholesterol Direct HDL Cholesterol Arterial Blood Glucose Arterial Blood Ionized Calcium Urine WBC (Auto) 04/22/20 04/22/20 04/22/20 00:01 07:45 07:45 WBC RBC Hgb 10.0 L Hct 30.7 L MCV 81 L MCH 27 L RDW 17.1 H Plt Count 490 H Lymph % (Auto) [place] % (Auto) Lymph # (Auto) [place] # (Auto) Seg Neutrophils % Seg Neuts % (Manual) 75.0 H Lymphocytes % (Manual) 11.0 L Monocytes % (Manual) 9.0 H Basophils % (Manual) Seg Neutrophils # Seg Neutrophils # Man Lymphocytes # (Manual) 0.8 L Monocytes # (Manual) Eosinophils # (Manual) Basophils # (Manual) PT INR D-Dimer ABG pH POC ABG pCO2 POC ABG pO2 ABG pO2 ABG HCO3 ABG O2 Saturation ABG Base Excess ABG Hemoglobin ABG Oxyhemoglobin ABG Potassium ABG Glucose Oxyhemoglobin Carboxyhemoglobin Sodium Potassium Chloride 96.3 L Carbon Dioxide 40 H BUN Creatinine < 0.2 L Glucose 109 H POC Glucose 110 H Calcium Ferritin Total Bilirubin Alkaline Phosphatase Lactate Dehydrogenase Total Creatine Kinase CK-MB (CK-2) Rel Index Troponin T C-Reactive Protein Total Protein Albumin Prealbumin LDL Cholesterol Direct HDL Cholesterol Arterial Blood Glucose Arterial Blood Ionized Calcium Urine WBC (Auto) 04/23/20 04/23/20 04/23/20 04:28 04:28 04:28 WBC RBC 3.64 L Hgb 9.7 L Hct 29.4 L MCV 81 L MCH 27 L RDW 17.2 H Plt Count 527 H Lymph % (Auto) [place] % (Auto) 8.9 H Lymph # (Auto) [place] # (Auto) Seg Neutrophils % Seg Neuts % (Manual) Lymphocytes % (Manual) Monocytes % (Manual) Basophils % (Manual) Seg Neutrophils # Seg Neutrophils # Man Lymphocytes # (Manual) Monocytes # (Manual) Eosinophils # (Manual) Basophils # (Manual) PT INR D-Dimer ABG pH POC ABG pCO2 POC ABG pO2 ABG pO2 ABG HCO3 ABG O2 Saturation ABG Base Excess ABG Hemoglobin ABG Oxyhemoglobin ABG Potassium ABG Glucose Oxyhemoglobin Carboxyhemoglobin Sodium Potassium Chloride 96.4 L Carbon Dioxide 32 H D BUN Creatinine < 0.2 L Glucose 134 H POC Glucose Calcium Ferritin Total Bilirubin Alkaline Phosphatase Lactate Dehydrogenase Total Creatine Kinase CK-MB (CK-2) Rel Index Troponin T 0.151 H* C-Reactive Protein Total Protein Albumin Prealbumin LDL Cholesterol Direct HDL Cholesterol 29 L Arterial Blood Glucose Arterial Blood Ionized Calcium Urine WBC (Auto) 04/23/20 04/23/20 04/24/20 06:03 23:41 05:28 WBC RBC 3.56 L Hgb 9.5 L Hct 28.9 L MCV 81 L MCH 27 L RDW 17.4 H Plt Count 462 H Lymph % (Auto) [place] % (Auto) Lymph # (Auto) [place] # (Auto) Seg Neutrophils % Seg Neuts % (Manual) 80.0 H Lymphocytes % (Manual) Monocytes % (Manual) Basophils % (Manual) Seg Neutrophils # Seg Neutrophils # Man Lymphocytes # (Manual) Monocytes # (Manual) Eosinophils # (Manual) Basophils # (Manual) PT INR D-Dimer ABG pH POC ABG pCO2 POC ABG pO2 ABG pO2 ABG HCO3 ABG O2 Saturation ABG Base Excess ABG Hemoglobin ABG Oxyhemoglobin ABG Potassium ABG Glucose Oxyhemoglobin Carboxyhemoglobin Sodium Potassium Chloride Carbon Dioxide BUN Creatinine Glucose POC Glucose 132 H 117 H Calcium Ferritin Total Bilirubin Alkaline Phosphatase Lactate Dehydrogenase Total Creatine Kinase CK-MB (CK-2) Rel Index Troponin T C-Reactive Protein Total Protein Albumin Prealbumin LDL Cholesterol Direct HDL Cholesterol Arterial Blood Glucose Arterial Blood Ionized Calcium Urine WBC (Auto) 04/24/20 04/24/20 04/24/20 05:28 05:28 05:33 WBC RBC Hgb Hct MCV MCH RDW Plt Count Lymph % (Auto) [place] % (Auto) Lymph # (Auto) [place] # (Auto) Seg Neutrophils % Seg Neuts % (Manual) Lymphocytes % (Manual) Monocytes % (Manual) Basophils % (Manual) Seg Neutrophils # Seg Neutrophils # Man Lymphocytes # (Manual) Monocytes # (Manual) Eosinophils # (Manual) Basophils # (Manual) PT INR D-Dimer ABG pH POC ABG pCO2 POC ABG pO2 ABG pO2 ABG HCO3 ABG O2 Saturation ABG Base Excess ABG Hemoglobin ABG Oxyhemoglobin ABG Potassium ABG Glucose Oxyhemoglobin Carboxyhemoglobin Sodium Potassium Chloride 96.1 L Carbon Dioxide 40 H D BUN Creatinine < 0.2 L Glucose 115 H POC Glucose 109 H Calcium Ferritin Total Bilirubin Alkaline Phosphatase Lactate Dehydrogenase Total Creatine Kinase CK-MB (CK-2) Rel Index Troponin T 0.181 H* C-Reactive Protein Total Protein Albumin Prealbumin LDL Cholesterol Direct HDL Cholesterol Arterial Blood Glucose Arterial Blood Ionized Calcium Urine WBC (Auto) 04/24/20 04/24/20 04/25/20 11:17 18:23 00:12 WBC RBC Hgb Hct MCV MCH RDW Plt Count Lymph % (Auto) [place] % (Auto) Lymph # (Auto) [place] # (Auto) Seg Neutrophils % Seg Neuts % (Manual) Lymphocytes % (Manual) Monocytes % (Manual) Basophils % (Manual) Seg Neutrophils # Seg Neutrophils # Man Lymphocytes # (Manual) Monocytes # (Manual) Eosinophils # (Manual) Basophils # (Manual) PT INR D-Dimer ABG pH POC ABG pCO2 POC ABG pO2 ABG pO2 ABG HCO3 ABG O2 Saturation ABG Base Excess ABG Hemoglobin ABG Oxyhemoglobin ABG Potassium ABG Glucose Oxyhemoglobin Carboxyhemoglobin Sodium Potassium Chloride Carbon Dioxide BUN Creatinine Glucose POC Glucose 117 H 109 H 113 H Calcium Ferritin Total Bilirubin Alkaline Phosphatase Lactate Dehydrogenase Total Creatine Kinase CK-MB (CK-2) Rel Index Troponin T C-Reactive Protein Total Protein Albumin Prealbumin LDL Cholesterol Direct HDL Cholesterol Arterial Blood Glucose Arterial Blood Ionized Calcium Urine WBC (Auto) 04/25/20 04/25/20 04/25/20 06:34 06:34 11:28 WBC 11.7 H RBC Hgb 10.0 L Hct 31.7 L MCV 82 L MCH 26 L RDW 17.5 H Plt Count 564 H Lymph % (Auto) [place] % (Auto) Lymph # (Auto) [place] # (Auto) Seg Neutrophils % Seg Neuts % (Manual) 78.0 H Lymphocytes % (Manual) 10.0 L Monocytes % (Manual) 9.0 H Basophils % (Manual) Seg Neutrophils # Seg Neutrophils # Man 9.1 H Lymphocytes # (Manual) Monocytes # (Manual) 1.1 H Eosinophils # (Manual) Basophils # (Manual) PT INR D-Dimer ABG pH POC ABG pCO2 POC ABG pO2 ABG pO2 ABG HCO3 ABG O2 Saturation ABG Base Excess ABG Hemoglobin ABG Oxyhemoglobin ABG Potassium ABG Glucose Oxyhemoglobin Carboxyhemoglobin Sodium Potassium Chloride Carbon Dioxide 39 H BUN Creatinine < 0.2 L Glucose 103 H POC Glucose 112 H Calcium Ferritin Total Bilirubin Alkaline Phosphatase Lactate Dehydrogenase Total Creatine Kinase CK-MB (CK-2) Rel Index Troponin T C-Reactive Protein Total Protein Albumin Prealbumin LDL Cholesterol Direct HDL Cholesterol Arterial Blood Glucose Arterial Blood Ionized Calcium Urine WBC (Auto) 04/27/20 04/27/20 04/27/20 11:48 17:08 23:31 WBC RBC Hgb Hct MCV MCH RDW Plt Count Lymph % (Auto) [place] % (Auto) Lymph # (Auto) [place] # (Auto) Seg Neutrophils % Seg Neuts % (Manual) Lymphocytes % (Manual) Monocytes % (Manual) Basophils % (Manual) Seg Neutrophils # Seg Neutrophils # Man Lymphocytes # (Manual) Monocytes # (Manual) Eosinophils # (Manual) Basophils # (Manual) PT INR D-Dimer ABG pH POC ABG pCO2 POC ABG pO2 ABG pO2 ABG HCO3 ABG O2 Saturation ABG Base Excess ABG Hemoglobin ABG Oxyhemoglobin ABG Potassium ABG Glucose Oxyhemoglobin Carboxyhemoglobin Sodium Potassium Chloride Carbon Dioxide BUN Creatinine Glucose POC Glucose 124 H 118 H 122 H Calcium Ferritin Total Bilirubin Alkaline Phosphatase Lactate Dehydrogenase Total Creatine Kinase CK-MB (CK-2) Rel Index Troponin T C-Reactive Protein Total Protein Albumin Prealbumin LDL Cholesterol Direct HDL Cholesterol Arterial Blood Glucose Arterial Blood Ionized Calcium Urine WBC (Auto) 04/28/20 04/29/20 04/29/20 05:42 00:14 05:30 WBC RBC Hgb Hct MCV MCH RDW Plt Count Lymph % (Auto) [place] % (Auto) Lymph # (Auto) [place] # (Auto) Seg Neutrophils % Seg Neuts % (Manual) Lymphocytes % (Manual) Monocytes % (Manual) Basophils % (Manual) Seg Neutrophils # Seg Neutrophils # Man Lymphocytes # (Manual) Monocytes # (Manual) Eosinophils # (Manual) Basophils # (Manual) PT INR D-Dimer ABG pH POC ABG pCO2 POC ABG pO2 ABG pO2 ABG HCO3 ABG O2 Saturation ABG Base Excess ABG Hemoglobin ABG Oxyhemoglobin ABG Potassium ABG Glucose Oxyhemoglobin Carboxyhemoglobin Sodium Potassium Chloride Carbon Dioxide BUN Creatinine Glucose POC Glucose 122 H 115 H 123 H Calcium Ferritin Total Bilirubin Alkaline Phosphatase Lactate Dehydrogenase Total Creatine Kinase CK-MB (CK-2) Rel Index Troponin T C-Reactive Protein Total Protein Albumin Prealbumin LDL Cholesterol Direct HDL Cholesterol Arterial Blood Glucose Arterial Blood Ionized Calcium Urine WBC (Auto) 04/30/20 05/01/20 05/01/20 00:29 05:39 12:30 WBC RBC Hgb Hct MCV MCH RDW Plt Count Lymph % (Auto) [place] % (Auto) Lymph # (Auto) [place] # (Auto) Seg Neutrophils % Seg Neuts % (Manual) Lymphocytes % (Manual) Monocytes % (Manual) Basophils % (Manual) Seg Neutrophils # Seg Neutrophils # Man Lymphocytes # (Manual) Monocytes # (Manual) Eosinophils # (Manual) Basophils # (Manual) PT INR D-Dimer ABG pH POC ABG pCO2 POC ABG pO2 ABG pO2 ABG HCO3 ABG O2 Saturation ABG Base Excess ABG Hemoglobin ABG Oxyhemoglobin ABG Potassium ABG Glucose Oxyhemoglobin Carboxyhemoglobin Sodium Potassium Chloride Carbon Dioxide BUN Creatinine Glucose POC Glucose 106 H 109 H 108 H Calcium Ferritin Total Bilirubin Alkaline Phosphatase Lactate Dehydrogenase Total Creatine Kinase CK-MB (CK-2) Rel Index Troponin T C-Reactive Protein Total Protein Albumin Prealbumin LDL Cholesterol Direct HDL Cholesterol Arterial Blood Glucose Arterial Blood Ionized Calcium Urine WBC (Auto) 05/01/20 05/03/20 05/03/20 23:35 05:09 11:36 WBC RBC Hgb Hct MCV MCH RDW Plt Count Lymph % (Auto) [place] % (Auto) Lymph # (Auto) [place] # (Auto) Seg Neutrophils % Seg Neuts % (Manual) Lymphocytes % (Manual) Monocytes % (Manual) Basophils % (Manual) Seg Neutrophils # Seg Neutrophils # Man Lymphocytes # (Manual) Monocytes # (Manual) Eosinophils # (Manual) Basophils # (Manual) PT INR D-Dimer ABG pH POC ABG pCO2 POC ABG pO2 ABG pO2 ABG HCO3 ABG O2 Saturation ABG Base Excess ABG Hemoglobin ABG Oxyhemoglobin ABG Potassium ABG Glucose Oxyhemoglobin Carboxyhemoglobin Sodium Potassium Chloride Carbon Dioxide BUN Creatinine Glucose POC Glucose 116 H 117 H 116 H Calcium Ferritin Total Bilirubin Alkaline Phosphatase Lactate Dehydrogenase Total Creatine Kinase CK-MB (CK-2) Rel Index Troponin T C-Reactive Protein Total Protein Albumin Prealbumin LDL Cholesterol Direct HDL Cholesterol Arterial Blood Glucose Arterial Blood Ionized Calcium Urine WBC (Auto) 05/03/20 05/03/20 05/03/20 14:06 14:06 23:39 WBC 12.5 H RBC Hgb 10.0 L Hct 31.2 L MCV 80 L MCH 26 L RDW 17.6 H Plt Count 488 H Lymph % (Auto) [place] % (Auto) Lymph # (Auto) [place] # (Auto) Seg Neutrophils % Seg Neuts % (Manual) Lymphocytes % (Manual) Monocytes % (Manual) Basophils % (Manual) Seg Neutrophils # Seg Neutrophils # Man Lymphocytes # (Manual) Monocytes # (Manual) Eosinophils # (Manual) Basophils # (Manual) PT INR D-Dimer ABG pH POC ABG pCO2 POC ABG pO2 ABG pO2 ABG HCO3 ABG O2 Saturation ABG Base Excess ABG Hemoglobin ABG Oxyhemoglobin ABG Potassium ABG Glucose Oxyhemoglobin Carboxyhemoglobin Sodium Potassium Chloride 95.4 L Carbon Dioxide 40 H BUN Creatinine < 0.2 L Glucose 121 H POC Glucose 107 H Calcium Ferritin Total Bilirubin Alkaline Phosphatase Lactate Dehydrogenase Total Creatine Kinase CK-MB (CK-2) Rel Index Troponin T C-Reactive Protein Total Protein Albumin Prealbumin LDL Cholesterol Direct HDL Cholesterol Arterial Blood Glucose Arterial Blood Ionized Calcium Urine WBC (Auto) 05/04/20 05/04/20 05/04/20 11:31 16:57 23:18 WBC RBC Hgb Hct MCV MCH RDW Plt Count Lymph % (Auto) [place] % (Auto) Lymph # (Auto) [place] # (Auto) Seg Neutrophils % Seg Neuts % (Manual) Lymphocytes % (Manual) Monocytes % (Manual) Basophils % (Manual) Seg Neutrophils # Seg Neutrophils # Man Lymphocytes # (Manual) Monocytes # (Manual) Eosinophils # (Manual) Basophils # (Manual) PT INR D-Dimer ABG pH POC ABG pCO2 POC ABG pO2 ABG pO2 ABG HCO3 ABG O2 Saturation ABG Base Excess ABG Hemoglobin ABG Oxyhemoglobin ABG Potassium ABG Glucose Oxyhemoglobin Carboxyhemoglobin Sodium Potassium Chloride Carbon Dioxide BUN Creatinine Glucose POC Glucose 113 H 126 H 126 H Calcium Ferritin Total Bilirubin Alkaline Phosphatase Lactate Dehydrogenase Total Creatine Kinase CK-MB (CK-2) Rel Index Troponin T C-Reactive Protein Total Protein Albumin Prealbumin LDL Cholesterol Direct HDL Cholesterol Arterial Blood Glucose Arterial Blood Ionized Calcium Urine WBC (Auto) 05/05/20 05/05/20 05/05/20 05:32 11:11 23:57 WBC RBC Hgb Hct MCV MCH RDW Plt Count Lymph % (Auto) [place] % (Auto) Lymph # (Auto) [place] # (Auto) Seg Neutrophils % Seg Neuts % (Manual) Lymphocytes % (Manual) Monocytes % (Manual) Basophils % (Manual) Seg Neutrophils # Seg Neutrophils # Man Lymphocytes # (Manual) Monocytes # (Manual) Eosinophils # (Manual) Basophils # (Manual) PT INR D-Dimer ABG pH POC ABG pCO2 POC ABG pO2 ABG pO2 ABG HCO3 ABG O2 Saturation ABG Base Excess ABG Hemoglobin ABG Oxyhemoglobin ABG Potassium ABG Glucose Oxyhemoglobin Carboxyhemoglobin Sodium Potassium Chloride Carbon Dioxide BUN Creatinine Glucose POC Glucose 109 H 124 H 119 H Calcium Ferritin Total Bilirubin Alkaline Phosphatase Lactate Dehydrogenase Total Creatine Kinase CK-MB (CK-2) Rel Index Troponin T C-Reactive Protein Total Protein Albumin Prealbumin LDL Cholesterol Direct HDL Cholesterol Arterial Blood Glucose Arterial Blood Ionized Calcium Urine WBC (Auto) 05/06/20 05/06/20 05/07/20 05:34 23:08 04:43 WBC RBC Hgb 10.1 L Hct 31.9 L MCV 81 L MCH 25 L RDW 17.6 H Plt Count 506 H Lymph % (Auto) [place] % (Auto) 8.6 H Lymph # (Auto) [place] # (Auto) 0.9 H Seg Neutrophils % Seg Neuts % (Manual) Lymphocytes % (Manual) Monocytes % (Manual) Basophils % (Manual) Seg Neutrophils # Seg Neutrophils # Man Lymphocytes # (Manual) Monocytes # (Manual) Eosinophils # (Manual) Basophils # (Manual) PT INR D-Dimer ABG pH POC ABG pCO2 POC ABG pO2 ABG pO2 ABG HCO3 ABG O2 Saturation ABG Base Excess ABG Hemoglobin ABG Oxyhemoglobin ABG Potassium ABG Glucose Oxyhemoglobin Carboxyhemoglobin Sodium Potassium Chloride Carbon Dioxide BUN Creatinine Glucose POC Glucose 121 H 107 H Calcium Ferritin Total Bilirubin Alkaline Phosphatase Lactate Dehydrogenase Total Creatine Kinase CK-MB (CK-2) Rel Index Troponin T C-Reactive Protein Total Protein Albumin Prealbumin LDL Cholesterol Direct HDL Cholesterol Arterial Blood Glucose Arterial Blood Ionized Calcium Urine WBC (Auto) 05/07/20 06:18 WBC RBC Hgb Hct MCV MCH RDW Plt Count Lymph % (Auto) [place] % (Auto) Lymph # (Auto) [place] # (Auto) Seg Neutrophils % Seg Neuts % (Manual) Lymphocytes % (Manual) Monocytes % (Manual) Basophils % (Manual) Seg Neutrophils # Seg Neutrophils # Man Lymphocytes # (Manual) Monocytes # (Manual) Eosinophils # (Manual) Basophils # (Manual) PT INR D-Dimer ABG pH POC ABG pCO2 POC ABG pO2 ABG pO2 ABG HCO3 ABG O2 Saturation ABG Base Excess ABG Hemoglobin ABG Oxyhemoglobin ABG Potassium ABG Glucose Oxyhemoglobin Carboxyhemoglobin Sodium Potassium Chloride Carbon Dioxide BUN Creatinine Glucose POC Glucose 121 H Calcium Ferritin Total Bilirubin Alkaline Phosphatase Lactate Dehydrogenase Total Creatine Kinase CK-MB (CK-2) Rel Index Troponin T C-Reactive Protein Total Protein Albumin Prealbumin LDL Cholesterol Direct HDL Cholesterol Arterial Blood Glucose Arterial Blood Ionized Calcium Urine WBC (Auto) Allied health notes reviewed: nursing
--- NOTE | 2020-05-07 21:51 | Progress Note ---
Assessment and Plan --Acute hypoxic hypercapnic respiratory failure; Intubated on mechanical ventilation. Etiology secondary to sepsis, ALS, multifocal pneumonia (Covid negative). S/p trach placement 03/07/20 --Status post cardiac arrest on 02/25, cardiac hernandez now stable --Dysphagia, status post PEG placement for tube feeding --ALS; Chronic Continue to provide supportive care --Elevated D-dimers; CTA chest, lower extremity venous Doppler both are negative Lovenox for DVT prophylaxis --Bilateral pneumonia; probably community-acquired Completed treatment ID recommendations appreciated --Sepsis secondary to pneumonia s/p empiric antibiotic --Elevated troponin; Serial cardiac enzymes, serial EKGs Echocardiogram, cardiology consult if needed --Hypernatremia Trend sodium Free water via feeding tube --Abdominal distention due to bladder outlet obstruction, resolved CT abdomen showed bladder outlet obstruction, urology consulted s/p drake placement by urology on 03/09 --Hypotension possibly from septic shock and bladder outlet obstruction improved following placing drake --Hypernatremia due to hypovolumia, resolved free water with TF --Constipation; Patient already received Dulcolax suppository and Colace Received milk of magnesia, with relief --DVT prophylaxis; Lovenox Brief history: 59-year-old male patient with significant past medical history of ALS, presented to ED with worsening shortness of breath since 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 Patient was on a trilogy machine for breathing 18/11. EMS arrived, patient had O2 sats in the 80s. EMS attempted to place patient on their CPAP machine, however patient did not tolerate. Patient was admitted to the ICU with diagnosis of acute hypoxic respiratory failure and placed on BiPAP. Patient initially tolerated but later deteriorated with respiratory status. CTA chest showed no PE but significant for bilateral pneumonia. Doppler ultrasound also negative for DVT. COVID-19 test ordered and negative. Due to persistent hypoxia and asystolic/V. fib cardiac arrest, patient was intubated on 02/26/2020 at 1500. Patient now on mechanical ventilation in the ICU s/p trach placement and now unable to wean off from the mechanical ventilation. Patient now status post PEG placement for tube feeding. Patient most likely need long-term placement -LTAC versus SNF Daily course: 02/25/2020. CTA of the chest reveals no PE but does illustrate the bilateral pneumonia. Doppler ultrasound also negative for DVT. Blood cultures are pe nding. Await COVID-19 testing. Patient currently requiring BiPAP IPAP 24/EPAP 6 with FiO2 of 25%. Continue O2 and BiPAP as clinically indicated. ID and pulmonary consulted. 02/26/2020. Blood cultures are negative x48 hours and Covid testing negative as well. Continue antibiotics per ID recommendations for community-acquired bilateral pneumonia. Cardiology consultation for elevated troponin. Check echocardiogram. 02/27/2020. Events of yesterday noted with asystole following V. fib arrest. Patient currently on AC mode rate 20, tidal volume 400, FiO2 50% and a PEEP of 6. Follow-up echocardiogram for elevated troponin. Cardiology suspects NSTEMI Type 2 in the setting of acute resp failure. Chest CTA and BLE Dopplers neg. we will discontinue Decadron given the Covid PCR is negative. 02/28/2020. I spoke with the sister Felisa Eli who is the power of assistant city attorney regarding advanced directives and she instructed me that she would like to continue with aggressive care at this time. I informed her of the guarded prognosis and high mortality/morbidity and she voiced understanding. Patient currently with AC mode ventilation rate 18, tidal volume 400, FiO2 40% and a PEEP of 6. Continue antibiotics for pneumonia. ID previously consulted. Also consult neurology with regards to ALS. 02/29/2020; patient is intubated and on CPAP patient is alert and oriented. Patient has ALS. Dr. Álvarez spoke with his sister and she wants aggressive care. Continue antibiotics for pneumonia. Neurology consulted for ALS. Prognosis poor 03/01/2020; patient is intubated and on CPAP, patient is alert and oriented. I spoke with his 2 sisters about the management plan. 03/02/2020; patient is intubated and on CPAP. Patient was alert and oriented. I spoke with Dr. mohr and he thinks patient may need mechanical ventilation, likely his disease progressed. Dr. Flowers did debridement this morning. 03/03/2020; patient is intubated and on CPAP, patient was on trilogy and BiPAP at home. Patient has ALS. on spontaneous breathing trial. Patient is alert and oriented but quadriplegic. Patient has severe bilateral pneumonia and is on cefepime and Vanco, ID is following. Patient has sacral decubitus ulcer and debridement was done by Dr. Flowers and there is no osteomyelitis. 03/05. Patient still on broad-spectrum antibiotics. Status post sacral decubitus ulcer debridements-no osteomyelitis. Patient is on AC 25/400/30% PEEP 5. No blood gas results today. 03/06. Plan for tracheostomy by surgery. Still remains intubated. Labs reviewed-sodium 150. Started on free water 200 every 8hr. trend sodium. 03/07: s/p trach placement today, patient placed back on mechanical ventilation with trach. Plan to resume tube feeding with NG tube. Continue to monitor vitals, monitor BMP. 03/08: Patient noted to have distended abdomen with low urinary output. Obtain bladder scan rule out urine retention, UA and urine culture, continue to follow clinically. 03/09: Patient noted to have low blood pressure with SBP as low as 70s. Ordered for 500 mils normal saline bolus. CT abdomen showed bladder outlet obstruction, urology consulted. 03/10: placed on drake by urology o/n, improved urine outpt. cont to monitor BMP. resuded TF - cont free water with TF. wean off from vent as tolerated. 03/11: Vitals stable. cont TF, wean off from vent as tolerated. start on 1/2 NS for hypernatremia - follow BMP 03/12: wean off vent as tolerated, plan for speech eval, cont Tf for now, cont iv fluid 03/13: unable to wean off from vent, unable to do speech therapy eval. will need PEG tube, cont supportive care for now, cont NG tube feeding 03/14: consulted GI for PEg placemnet, cont supportive care. remains on vent at night 03/15: Discussed with GI, plan for PEG tube placement possibly tomorrow. Continue supportive care and wean off from vent as tolerated. Hold Lovenox dose tonight. 03/16: family didnot consent for PEG placement yesterday. I spoke with the megan rodriguez today and she is now agreeable for PEG tube. I explained the necessity of the procedure with RN to the patient also and he nodded started on tube feeding, for the procedure. will cont supportive care. planned for PEG tube placement tomorrow. 03/17: s/p PEG placement today, patient tolerated well, cont supportive care 03/18: Started on tube feeding with new PEG tube, continue to wean off vent as tolerated 03/19: cont to monitor with supportive care, wean off vent as tolerated 03/20: Continue to wean off vent as tolerated -but failing weaning trial. Still requiring vent support at night. Currently on PEG tube for tube feed. 03/21. Pt with PSV trials with FiO@ 30%, PEEP 6, PS 10. Currently on PEG tube for tube feed. 03/22/2020. Continue PSV trials per pulmonary. Continue bronchodilators. Patient tolerating tube feedings. Continue Robinul for secretion control. 03/23/2020. Continue PSV trials per pulmonary. Continue bronchodilators. Continue Scopolamine and Robinul for secretion control. Trach care/airway management. Mobility protocols for pressure ulcer prophylaxis. LTAC evaluation per case management 03/24/2020. Continue PSV trials with current settings pressure support 10, PEEP 6 and FiO2 30%. Continue bronchodilators/nebulizer. Continue Scopolamine and Robinul for secretion control. Trach care/airway management. Mobility protocols for pressure ulcer prophylaxis. LTAC evaluation per case management 03/25/2020. Pulmonary to proceed with T-piece trials today. Continue bronchodilators/nebulizer. Continue Scopolamine and Robinul for secretion control. Trach care/airway management. Mobility protocols for pressure ulcer prophylaxis. 03/26/2020. Patient currently with PSV 10/6 at FiO2 of 30%. Continue weaning and T-piece trials per protocol. Continue bronchodilators/nebulizer. Continue Scopolamine and Robinul for secretion control. Trach care/airway management. Mobility protocols for pressure ulcer prophylaxis. Continue tube feeding with aspiration precautions. 03/27/2020. Patient currently with PSV 10/6 at FiO2 of 30%. Continue weaning and T-piece trials per protocol. Continue bronchodilators/nebulizer. Continue Scopolamine and Robinul for secretion control. Trach care/airway management. Mobility protocols for pressure ulcer prophylaxis. Continue tube feeding with aspiration precautions. 03/28. Had temp 100.7F. He has been off antibiotics. Will send blood culture, ua, urine culture and chest xray. Had chest pain overnight and trop was elevated as well. Cardiology to evaluate 03/29. Has back pain due to position. He mentions his chest pain is positional. Has no other complaints. Still on mechanical ventilation 03/30. No chest pain today. Labs reviewed. Discussed chest pain with cardiology and team advised no further work up at this time. Can follow up with cardiology in the office after hospitalization 03/31. Lidocaine patch for lower back pain. 04/01. Discharge planning underway. CM notes reviewed. Discussed with daughter 04/02. CM trying to arrange discharge. Continue PSV trials. Discussed with patients significant other 04/04/2020; CM is working for discharge arrangement. Continue PSV trials. 04/05/2020; patient was seen and evaluated this morning and no change from baseline. Continue with PSV trials. Follow with weapons mechanic for discharge planning. 04/06/2020;patient was seen and evaluated this morning and no change from baseline. Continue with PSV trials. Follow with weapons mechanic for discharge planning. 04/07/2020; patient was seen and evaluated this morning and no change from baseline. Continue with PSV trials. Follow with weapons mechanic for discharge planning. 04/08/2020; patient is vent dependent. Discharge is per weapons mechanic. 04/09/2020 patient is vent dependent, possible LTAC placement 04/10/2020; tracheostomy on vent, vent dependent pending LTAC placement 04/11/2020; clinically no change, tracheostomy on ventilatory support, wean as tolerated, awaiting placement 04/12/2020; remains on ventilatory support, unable to wean, patient wants to see a speech therapist for sound box However we cannot try that as long as he is on ventilatory support, once he is weaned off vent We will consult speech therapist, plan of care reviewed with the patient and his nurse 04/14/2020; clinically no change, on ventilatory support, complains of constipation, milk of magnesia Closely monitor the patient and adjust the management as needed 04/15/2020; patient has some oral thrush on the tongue, will give Magic mouthwash/nystatin swish and spit Wean off vent as tolerated 04/16 patient is alert and oriented, unable to comprehend what he is trying to tell but appears to complain of some pain, no acute events overnight, all interdisciplinary notes reviewed. Waiting for LTAC versus assisted facility placement 04/17/2020. Continue supportive care with mechanical ventilation. Patient currently on AC mode rate 10, tidal volume 400 FiO2 30% with a PEEP of 6. Discharge planning per case management. 04/18/2020. Patient remains on mechanical ventilation AC mode rate 10, tidal volume 400, FiO2 30% and PEEP of 6. Continue spontaneous breathing trials as tolerated. Previously, patient was considered for discharge home with skilled staff providing care for 12 hours 7 days/week. Continue discussed with case management discharge planning. 04/19/20. Patient remains on mechanical ventilation AC mode rate 10, tidal volume 400, FiO2 30% and PEEP of 6. Continue spontaneous breathing trials as tolerated. 04/20/2020. Patient remains on mechanical ventilation AC mode rate 10, tidal volume 400, FiO2 30% and PEEP of 6. Continue spontaneous breathing trials as tolerated. 04/21/2020. Patient remains on mechanical ventilation AC mode rate 10, tidal volume 400, FiO2 30% and PEEP of 6. Continue tracheostomy care, secretion control and airway management. Continue spontaneous breathing trials as tolerated. 04/22/2020. Patient remains on mechanical ventilation AC mode rate 10, tidal volume 400, FiO2 30% and PEEP of 6. Continue tracheostomy care, secretion control and airway management. Continue spontaneous breathing trials as tolera milana. 04/23/2020. Patient on mechanical ventilation AC mode rate 18, tidal volume 450, FiO2 30% and PEEP of 6. Continue tracheostomy care, secretion control and airway management. Continue spontaneous breathing trials as tolerated. Continue Robinul and scopolamine for secretions. Continue baclofen. 04/24/2020. Patient remains on AC mode ventilation rate 10, tidal volume 400, FiO2 30% and PEEP of 6. Continue tracheostomy care, secretion control and airway management. Continue spontaneous breathing trials as tolerated. Continue Robinul and scopolamine for secretions. Continue baclofen. Continue Xanax for anxiety and Ambien for sleep. Await case management follow-up with regards to discharge planning. 04/25/2020. Patient remains on AC mode ventilation rate 10, tidal volume 400, FiO2 30% and PEEP of 6. Continue tracheostomy care, secretion control and airway management. Continue spontaneous breathing trials as tolerated. Continue Robinul and scopolamine for secretions. Continue baclofen. Continue Xanax for anxiety and Ambien for sleep. Await case management follow-up with regards to discharge planning. 04/26. Patient remains on AC mode ventilation rate 10, tidal volume 400, FiO2 30% and PEEP of 6. Continue tracheostomy care, secretion control and airway management. Continue spontaneous breathing trials as tolerated. Continue Robinul and scopolamine for secretions. Continue baclofen. Continue Xanax for anxiety and Ambien for sleep. Await case management follow-up with regards to discharge planning. 04/27. Patient remains on AC mode ventilation rate 10, tidal volume 400, FiO2 30% and PEEP of 6. Continue tracheostomy care, secretion control and airway management. Continue spontaneous breathing trials as tolerated. Continue Robinul and scopolamine for secretions. Continue baclofen. Continue Xanax for anxiety and Ambien for sleep. Await case management follow-up with regards to discharge planning. 04/28/20 no acute events overnight, remains vent dependent, cardiology and pulmonary notes reviewed 04/29 remains intubated via tracheostomy, no acute events 04/30 no acute events overnight, cardiology note reviewed, remains vent dependent, discharge planning per case management 05/01 stable. cardiology and pulmonary notes reviewed. D/C acu-checks 05/02 - todate: Clinically stable, CM working on placement. Continue supportive care. Subjective Date of service: 05/07/20 Principal diagnosis: Ac on Ch Hypercapnic & hypoxemic Resp Failure; Severe Sepsis; Jamar PNA; ALS Interval history: Patient seen and examined Remains on trach tube Discussed with RN at the bedside Vitals reviewed -BP stable Tolerating tube feeding with PEG tube Objective - Exam Narrative Exam: GENERAL: Awake. Intubated with trach tube HEAD: No signs of head trauma. EYES: Pupils are equal. Extraocular motions intact. EARS: Hearing grossly intact. MOUTH: Oropharynx is normal. NECK: No adenopathy, no JVD. CHEST: Coarse breath sounds bilaterally CARDIAC: Regular rate and rhythm. S1 and S2, without murmurs, gallops, or rubs. VASCULAR: No Edema. Peripheral pulses normal and equal in all extremities. ABDOMEN: Soft, non tender and nondistended. Bowel Sounds normal. PEG in place NEUROLOGIC EXAM: Awake, paraplegic SKIN: No obvious lesions - Constitutional Vitals: Vital Signs - 12hr 05/07/20 05/07/20 05/07/20 10:00 11:00 12:00 Temperature Pulse Rate 99 H 108 H 98 H Pulse Rate [ 111 H From Monitor] Respiratory 16 23 23 Rate Blood Pressure 107/70 120/82 116/72 O2 Sat by Pulse 93 93 95 Oximetry O2 Sat by Pulse Oximetry [ Assessment] 05/07/20 05/07/20 05/07/20 13:00 14:00 15:00 Temperature Pulse Rate 101 H 101 H 110 H Pulse Rate [ From Monitor] Respiratory 24 16 22 Rate Blood Pressure 112/76 121/82 108/76 O2 Sat by Pulse 95 94 98 Oximetry O2 Sat by Pulse Oximetry [ Assessment] 05/07/20 05/07/20 05/07/20 16:00 16:02 17:00 Temperature Pulse Rate 108 H 108 H 115 H Pulse Rate [ 111 H From Monitor] Respiratory 22 20 Rate Blood Pressure 112/78 112/78 115/80 O2 Sat by Pulse 95 97 Oximetry O2 Sat by Pulse 97 Oximetry [ Assessment] 05/07/20 05/07/20 05/07/20 18:00 19:00 20:00 Temperature 99.8 F H Pulse Rate 117 H 118 H 116 H Pulse Rate [ From Monitor] Respiratory 17 22 25 H Rate Blood Pressure 114/77 131/88 132/71 O2 Sat by Pulse 95 94 95 Oximetry O2 Sat by Pulse Oximetry [ Assessment] - Labs CBC & Chem 7: 05/07/20 04:43 05/09/20 16:06 Labs: Abnormal lab results 05/06/20 05/07/20 05/07/20 Range/Units 23:08 04:43 06:18 Hgb 10.1 L (11.8-15.2) gm/dl Hct 31.9 L (35.5-45.6) % MCV 81 L (84-94) fl MCH 25 L (28-32) pg RDW 17.6 H (13.2-15.2) % Plt Count 506 H (140-440) K/mm3 [place] % (Auto) 8.6 H (0.0-7.3) % [place] # (Auto) 0.9 H (0.0-0.8) K/mm3 POC Glucose 107 H 121 H (70-105) mg/dL 05/07/20 Range/Units 17:13 Hgb (11.8-15.2) gm/dl Hct (35.5-45.6) % MCV (84-94) fl MCH (28-32) pg RDW (13.2-15.2) % Plt Count (140-440) K/mm3 [place] % (Auto) (0.0-7.3) % [place] # (Auto) (0.0-0.8) K/mm3 POC Glucose 122 H (70-105) mg/dL HEART Score - HEART Score Troponin: Troponin T 0.181 ng/mL (0.00-0.029) H* 04/24/20 05:28
[2020-05-07] MEDS: ENOXAPARIN 40 MG/0.4 ML INJ SUB-Q SCH (22:15)
[2020-05-07] MEDS: SENNOSIDES 8.6 MG TAB PO SCH (22:16)
[2020-05-07] MEDS: ZOLPIDEM 5 MG TAB PO PRN (22:16)
[2020-05-08] MEDS ORDERED: diphenhydrAMINE 25 MG/10 ML ORAL LIQUID FEEDTUBE ONE (02:46)
[2020-05-08] MEDS ORDERED: diphenhydrAMINE 50 MG/ML VIAL IV ONE (03:50)
[2020-05-08] MEDS: MORPHINE 2 MG/1 ML INJ IV PRN ×2 (04:55→20:39)
[2020-05-08] MEDS: SODIUM HYPOCHLORITE, DAKIN'S 1/2 STRENGTH (0.25%) 473 ML TOPICAL SOLN TP SCH ×3 (05:00→22:10)
[2020-05-08] MEDS ORDERED: diphenhydrAMINE 50 MG/ML VIAL ONE (06:39)
[2020-05-08] MEDS: traMADol 50 MG TAB PO PRN (06:55)
[2020-05-08] MEDS: MAGIC MOUTHWASH 30ML PO SCH ×3 (09:23→20:41)
[2020-05-08] MEDS: BACLOFEN 10 MG TAB PO SCH ×2 (09:24→22:11)
[2020-05-08] MEDS: PREGABALIN 75 MG CAP PO SCH ×2 (09:24→22:13)
[2020-05-08] MEDS: METOPROLOL TARTRATE 25 MG TAB PO SCH ×2 (09:24→22:12)
[2020-05-08] MEDS: ASPIRIN EC 81 MG TAB PO SCH (09:24)
[2020-05-08] MEDS: LANSOPRAZOLE 30 MG SOLUTAB FEEDTUBE SCH (09:24)
[2020-05-08] MEDS: TAMSULOSIN 0.4 MG CAP PO SCH (09:24)
[2020-05-08] MEDS: DOCUSATE SODIUM 100 MG/10 ML ORAL LIQD FEEDTUBE SCH ×2 (09:25→22:10)
[2020-05-08] MEDS: SCOPOLAMINE TRANSDERMAL PATCH 72 HR TD SCH (09:25)
[2020-05-08] MEDS: GLYCOPYRROLATE 1 MG TAB PO SCH ×3 (09:25→20:40)
[2020-05-08] MEDS: LIDOCAINE 5% 1 EACH PATCH TD SCH (09:25)
--- NOTE | 2020-05-08 14:58 | Progress Note ---
Assessment and Plan Patient awake. Patient is on Pressure support ventilation, pressure support 10, FIO2 30%, PEEP 6 and O2 saturation running 96%. Recommend Continue spontaneous breathing trials as tolerated.Respiratory therapy told me, Patient Not tolearing T tube trial ' Recommend to pressure support to 5.Patient afebrile and has leukocytosis. Chest xray done 05/02/20 reported Interval worsening of right lung base opacity now appears to be pleural parenchymal. This may be a worsened infectious process or development of right-sided pleural effusion and worsened right lung base atelectasis. Left lung base opacity is stable. Tracheostomy in stable position. Patient right lung base infiltrate reported intervel worsening, patient has no leukocytosis, recommend to place him antibiotic like zosyn. - Patient Problems (1) Acute on chronic respiratory failure with hypoxia and hypercapnia Current Visit: Yes Status: Acute Plan to address problem: Patient is resting on Pressure support 10, FIO2 30%, PEEP 6. Albuterol inhaler 2 puffs po qid. Continue S/C Lovenox. Continue prevacid. Recommend T tube trials as tolerated. (2) Bleeding from wound Current Visit: Yes Status: Acute Plan to address problem: Management primary care , surgery and wound care. (3) Elevated d-dimer Current Visit: Yes Status: Acute Plan to address problem: Patients venous doppler studies of legs, CTA chest reported Negative for VTE. Patient is on S/C Lovenox 40 mg qd. (4) Elevated troponin Current Visit: Yes Status: Acute Plan to address problem: Management as per primary care and cardiology (5) NSTEMI (non-ST elevated myocardial infarction) Current Visit: Yes Status: Acute Plan to address problem: Management as per cardiology. (6) Pneumonia Current Visit: Yes Status: Acute Qualifiers: Laterality: bilateral Plan to address problem: Patient afebrile . Has mild leukocytosis. Repeat Chest xray done 05/02/20 reported Interval worsening of right lung base opacity now appears to be pleural parenchymal. This may be a worsened infectious process or development of right-sided pleural effusion and worsened right lung base atelectasis. Left lung base opacity is stable. Tracheostomy in stable position. Patient right lung base infiltrate reported intervel worsening, patient has no leukocytosis, recommend to place him antibiotic like zosyn. Subjective Date of service: 05/08/20 Principal diagnosis: Ac on Ch Hypercapnic & hypoxemic Resp Failure; Severe Sepsis; Jamar PNA; ALS Interval history: Patient awake. Patient is on Pressure support ventilation, pressure support 10, FIO2 30%, PEEP 6 and O2 saturation running 96%. Recommend Continue spontaneous breathing trials as tolerated.Respiratory therapy told me, Patient Not tolearing T tube trial ' Recommend to pressure support to 5.Patient afebrile and has leukocytosis. Chest xray done 05/02/20 reported Interval worsening of right lung base opacity now appears to be pleural parenchymal. This may be a worsened infectious process or development of right-sided pleural effusion and worsened right lung base atelectasis. Left lung base opacity is stable. Tracheostomy in stable position. Patient right lung base infiltrate reported intervel worsening, patient has no leukocytosis, recommend to place him antibiotic like zosyn. Objective Vital Signs - 12hr 05/08/20 05/08/20 05/08/20 03:00 04:00 04:14 Temperature 98.2 F Pulse Rate 110 H 106 H 102 H Pulse Rate [ From Monitor] Respiratory 20 14 Rate Blood Pressure 114/81 107/77 O2 Sat by Pulse 97 98 Oximetry O2 Sat by Pulse Oximetry [ Assessment] 05/08/20 05/08/20 05/08/20 05:00 06:00 07:00 Temperature Pulse Rate 121 H 116 H Pulse Rate [ From Monitor] Respiratory 32 H 15 Rate Blood Pressure 107/77 109/62 110/75 O2 Sat by Pulse 98 97 93 Oximetry O2 Sat by Pulse Oximetry [ Assessment] 05/08/20 05/08/20 05/08/20 08:00 09:00 09:24 Temperature 98.4 F Pulse Rate 102 H 105 H 106 H Pulse Rate [ 98 H From Monitor] Respiratory 13 19 Rate Blood Pressure 116/78 115/81 115/81 O2 Sat by Pulse 99 100 Oximetry O2 Sat by Pulse 99 Oximetry [ Assessment] 05/08/20 05/08/20 05/08/20 09:48 10:00 11:00 Temperature Pulse Rate 104 H 102 H Pulse Rate [ From Monitor] Respiratory 12 17 Rate Blood Pressure 110/81 117/85 O2 Sat by Pulse 99 99 100 Oximetry O2 Sat by Pulse Oximetry [ Assessment] 05/08/20 05/08/20 05/08/20 11:30 12:00 13:00 Temperature 98.9 F Pulse Rate 105 H 106 H 95 H Pulse Rate [ 106 H From Monitor] Respiratory 19 22 Rate Blood Pressure 108/77 108/77 118/79 O2 Sat by Pulse 99 99 Oximetry O2 Sat by Pulse Oximetry [ Assessment] Constitutional: no acute distress, alert, other (thin middle aged male with normal respiratory effort at rest on MVS) Eyes: non-icteric ENT: oropharynx moist, other (S/P Tracheostomy) Neck: supple, no lymphadenopathy, no JVD Effort: mildly labored Ascultation: Bilateral: diminished breath sounds, wheezes, rhonchi (scant in bases) Percussion: Bilateral: not dull Cardiovascular: regular rate and rhythm, other (S1,S2, no murmurs) Gastrointestinal: normoactive bowel sounds, soft, non-tender, non-distended, other (+ distended but non tender suprapubis) Integumentary: normal, decubitus ulcer (sacral / gluteal) Extremities: no cyanosis, no edema, pulses normal, other (atrophic looking limbs) Neurologic: pupils equal and round, other (motor strength in extremities 1-2/5, awake, alert, mouths words to make needs known) Psychiatric: mood appropriate, affect normal CBC and BMP: 05/07/20 04:43 05/03/20 14:06 ABG, PT/INR, D-dimer: ABG ABG pH 7.371 (7.320-7.450) 03/08/20 12:34 POC ABG pCO2 63.1 mmHg (32.0-48.0) H 03/08/20 12:34 ABG pCO2 60.1 mm Hg 03/06/20 04:34 POC ABG pO2 90.5 mmHg (83-108) 03/08/20 12:34 ABG pO2 88.6 mm Hg (80.0-90.0) 03/06/20 04:34 POC ABG HCO3 35.7 03/08/20 12:34 ABG O2 Saturation 97.0 % (95.0-99.0) 03/06/20 04:34 PT/INR, D-dimer PT 15.6 Sec. (12.2-14.9) H 02/24/20 09:19 INR 1.21 (0.87-1.13) H 02/24/20 09:19 D-Dimer 1311.96 ng/mlDDU (0-234) H 02/24/20 09:19 Abnormal lab findings: Abnormal Labs 02/24/20 02/24/20 02/24/20 09:19 09:19 09:19 WBC 20.2 H RBC 5.05 H Hgb Hct MCV MCH RDW 15.3 H Plt Count Lymph % (Auto) [place] % (Auto) Lymph # (Auto) [place] # (Auto) Seg Neutrophils % Seg Neuts % (Manual) 86.0 H Lymphocytes % (Manual) 1.0 L Monocytes % (Manual) Basophils % (Manual) Seg Neutrophils # Seg Neutrophils # Man 17.4 H Lymphocytes # (Manual) 0.2 L Monocytes # (Manual) Eosinophils # (Manual) Basophils # (Manual) PT 15.6 H INR 1.21 H D-Dimer 1311.96 H ABG pH POC ABG pCO2 POC ABG pO2 ABG pO2 ABG HCO3 ABG O2 Saturation ABG Base Excess ABG Hemoglobin ABG Oxyhemoglobin ABG Potassium ABG Glucose Oxyhemoglobin Carboxyhemoglobin Sodium 135 L Potassium 3.2 L Chloride 92.2 L Carbon Dioxide BUN 6 L Creatinine < 0.2 L Glucose 124 H POC Glucose Calcium Ferritin Total Bilirubin 2.30 H Alkaline Phosphatase 132 H Lactate Dehydrogenase Total Creatine Kinase CK-MB (CK-2) Rel Index Troponin T 0.080 H C-Reactive Protein Total Protein Albumin 3.6 L Prealbumin LDL Cholesterol Direct 41 L HDL Cholesterol Arterial Blood Glucose Arterial Blood Ionized Calcium Urine WBC (Auto) 02/24/20 02/24/20 02/24/20 09:19 09:58 10:01 WBC RBC Hgb Hct MCV MCH RDW Plt Count Lymph % (Auto) [place] % (Auto) Lymph # (Auto) [place] # (Auto) Seg Neutrophils % Seg Neuts % (Manual) Lymphocytes % (Manual) Monocytes % (Manual) Basophils % (Manual) Seg Neutrophils # Seg Neutrophils # Man Lymphocytes # (Manual) Monocytes # (Manual) Eosinophils # (Manual) Basophils # (Manual) PT INR D-Dimer ABG pH 7.176 L* POC ABG pCO2 POC ABG pO2 ABG pO2 91.2 H ABG HCO3 ABG O2 Saturation ABG Base Excess -4.6 L ABG Hemoglobin ABG Oxyhemoglobin ABG Potassium ABG Glucose Oxyhemoglobin 92.6 L Carboxyhemoglobin Sodium Potassium Chloride Carbon Dioxide BUN Creatinine Glucose POC Glucose Calcium Ferritin 1715.0 H Total Bilirubin Alkaline Phosphatase Lactate Dehydrogenase 303 H Total Creatine Kinase CK-MB (CK-2) Rel Index Troponin T C-Reactive Protein 26.10 H Total Protein Albumin Prealbumin LDL Cholesterol Direct HDL Cholesterol Arterial Blood Glucose Arterial Blood Ionized Calcium Urine WBC (Auto) 02/24/20 02/24/20 02/24/20 11:52 13:45 19:35 WBC RBC Hgb Hct MCV MCH RDW Plt Count Lymph % (Auto) [place] % (Auto) Lymph # (Auto) [place] # (Auto) Seg Neutrophils % Seg Neuts % (Manual) Lymphocytes % (Manual) Monocytes % (Manual) Basophils % (Manual) Seg Neutrophils # Seg Neutrophils # Man Lymphocytes # (Manual) Monocytes # (Manual) Eosinophils # (Manual) Basophils # (Manual) PT INR D-Dimer ABG pH 7.051 L* 7.300 L POC ABG pCO2 POC ABG pO2 ABG pO2 94.7 H 75.1 L ABG HCO3 18.0 L ABG O2 Saturation 93.5 L ABG Base Excess -6.8 L -7.8 L ABG Hemoglobin 13.2 L 11.9 L ABG Oxyhemoglobin ABG Potassium ABG Glucose Oxyhemoglobin 91.0 L 92.7 L Carboxyhemoglobin Sodium Potassium Chloride Carbon Dioxide BUN Creatinine Glucose POC Glucose Calcium Ferritin Total Bilirubin Alkaline Phosphatase Lactate Dehydrogenase Total Creatine Kinase CK-MB (CK-2) Rel Index Troponin T 0.034 H D C-Reactive Protein Total Protein Albumin Prealbumin LDL Cholesterol Direct HDL Cholesterol Arterial Blood Glucose Arterial Blood Ionized Calcium Urine WBC (Auto) 02/25/20 02/25/20 02/25/20 04:00 04:00 12:26 WBC 22.9 H RBC Hgb Hct MCV 83 L MCH 27 L RDW Plt Count 468 H Lymph % (Auto) [place] % (Auto) Lymph # (Auto) [place] # (Auto) Seg Neutrophils % Seg Neuts % (Manual) 89.0 H Lymphocytes % (Manual) 7.0 L Monocytes % (Manual) Basophils % (Manual) Seg Neutrophils # Seg Neutrophils # Man 20.4 H Lymphocytes # (Manual) Monocytes # (Manual) Eosinophils # (Manual) Basophils # (Manual) PT INR D-Dimer ABG pH POC ABG pCO2 POC ABG pO2 ABG pO2 ABG HCO3 ABG O2 Saturation ABG Base Excess ABG Hemoglobin ABG Oxyhemoglobin ABG Potassium 2.6 L ABG Glucose 142 H Oxyhemoglobin Carboxyhemoglobin Sodium Potassium 3.2 L Chloride Carbon Dioxide 18 L BUN Creatinine 0.2 L Glucose 114 H POC Glucose Calcium Ferritin Total Bilirubin Alkaline Phosphatase Lactate Dehydrogenase Total Creatine Kinase CK-MB (CK-2) Rel Index Troponin T C-Reactive Protein Total Protein Albumin 3.5 L Prealbumin LDL Cholesterol Direct HDL Cholesterol Arterial Blood Glucose 142 H Arterial Blood Ionized Calcium Urine WBC (Auto) 02/26/20 02/26/20 02/26/20 15:58 17:00 23:43 WBC RBC Hgb Hct MCV MCH RDW Plt Count Lymph % (Auto) [place] % (Auto) Lymph # (Auto) [place] # (Auto) Seg Neutrophils % Seg Neuts % (Manual) Lymphocytes % (Manual) Monocytes % (Manual) Basophils % (Manual) Seg Neutrophils # Seg Neutrophils # Man Lymphocytes # (Manual) Monocytes # (Manual) Eosinophils # (Manual) Basophils # (Manual) PT INR D-Dimer ABG pH 7.502 H POC ABG pCO2 POC ABG pO2 213.6 H ABG pO2 ABG HCO3 ABG O2 Saturation ABG Base Excess ABG Hemoglobin ABG Oxyhemoglobin 99.2 H ABG Potassium 2.9 L ABG Glucose 160 H Oxyhemoglobin Carboxyhemoglobin 0.4 L Sodium Potassium Chloride Carbon Dioxide BUN Creatinine Glucose POC Glucose 189 H 120 H Calcium Ferritin Total Bilirubin Alkaline Phosphatase Lactate Dehydrogenase Total Creatine Kinase CK-MB (CK-2) Rel Index Troponin T C-Reactive Protein Total Protein Albumin Prealbumin LDL Cholesterol Direct HDL Cholesterol Arterial Blood Glucose 160 H Arterial Blood Ionized Calcium 4.5 L Urine WBC (Auto) 02/27/20 02/27/20 02/27/20 05:00 07:04 17:45 WBC RBC Hgb Hct MCV MCH RDW Plt Count Lymph % (Auto) [place] % (Auto) Lymph # (Auto) [place] # (Auto) Seg Neutrophils % Seg Neuts % (Manual) Lymphocytes % (Manual) Monocytes % (Manual) Basophils % (Manual) Seg Neutrophils # Seg Neutrophils # Man Lymphocytes # (Manual) Monocytes # (Manual) Eosinophils # (Manual) Basophils # (Manual) PT INR D-Dimer ABG pH 7.524 H POC ABG pCO2 POC ABG pO2 ABG pO2 ABG HCO3 ABG O2 Saturation ABG Base Excess ABG Hemoglobin ABG Oxyhemoglobin ABG Potassium 3.0 L ABG Glucose 143 H Oxyhemoglobin Carboxyhemoglobin Sodium Potassium Chloride Carbon Dioxide BUN Creatinine Glucose POC Glucose 154 H 175 H Calcium Ferritin Total Bilirubin Alkaline Phosphatase Lactate Dehydrogenase Total Creatine Kinase CK-MB (CK-2) Rel Index Troponin T C-Reactive Protein Total Protein Albumin Prealbumin LDL Cholesterol Direct HDL Cholesterol Arterial Blood Glucose 143 H Arterial Blood Ionized Calcium Urine WBC (Auto) 02/27/20 02/28/20 02/28/20 Unknown 00:21 04:15 WBC 18.7 H RBC Hgb Hct MCV MCH RDW Plt Count Lymph % (Auto) 8.7 L [place] % (Auto) Lymph # (Auto) [place] # (Auto) 1.2 H Seg Neutrophils % 84.6 H Seg Neuts % (Manual) Lymphocytes % (Manual) Monocytes % (Manual) Basophils % (Manual) Seg Neutrophils # 15.9 H Seg Neutrophils # Man Lymphocytes # (Manual) Monocytes # (Manual) Eosinophils # (Manual) Basophils # (Manual) PT INR D-Dimer ABG pH POC ABG pCO2 POC ABG pO2 ABG pO2 ABG HCO3 ABG O2 Saturation ABG Base Excess ABG Hemoglobin ABG Oxyhemoglobin ABG Potassium ABG Glucose Oxyhemoglobin Carboxyhemoglobin Sodium Potassium 2.9 L* Chloride Carbon Dioxide 33 H D BUN Creatinine < 0.2 L Glucose 157 H POC Glucose 134 H Calcium Ferritin Total Bilirubin Alkaline Phosphatase Lactate Dehydrogenase Total Creatine Kinase CK-MB (CK-2) Rel Index Troponin T C-Reactive Protein Total Protein Albumin Prealbumin LDL Cholesterol Direct HDL Cholesterol Arterial Blood Glucose Arterial Blood Ionized Calcium Urine WBC (Auto) 02/28/20 02/28/20 02/28/20 04:15 05:16 05:39 WBC RBC Hgb Hct MCV MCH RDW Plt Count Lymph % (Auto) [place] % (Auto) Lymph # (Auto) [place] # (Auto) Seg Neutrophils % Seg Neuts % (Manual) Lymphocytes % (Manual) Monocytes % (Manual) Basophils % (Manual) Seg Neutrophils # Seg Neutrophils # Man Lymphocytes # (Manual) Monocytes # (Manual) Eosinophils # (Manual) Basophils # (Manual) PT INR D-Dimer ABG pH POC ABG pCO2 POC ABG pO2 ABG pO2 142.9 H ABG HCO3 34.1 H ABG O2 Saturation ABG Base Excess 8.3 H ABG Hemoglobin ABG Oxyhemoglobin ABG Potassium ABG Glucose Oxyhemoglobin Carboxyhemoglobin Sodium 151 H Potassium Chloride Carbon Dioxide 32 H BUN Creatinine 0.2 L Glucose 167 H POC Glucose 138 H Calcium Ferritin Total Bilirubin Alkaline Phosphatase Lactate Dehydrogenase Total Creatine Kinase CK-MB (CK-2) Rel Index Troponin T C-Reactive Protein Total Protein Albumin Prealbumin LDL Cholesterol Direct HDL Cholesterol Arterial Blood Glucose Arterial Blood Ionized Calcium Urine WBC (Auto) 02/28/20 02/28/20 02/28/20 11:05 11:33 12:54 WBC RBC Hgb Hct MCV MCH RDW Plt Count Lymph % (Auto) [place] % (Auto) Lymph # (Auto) [place] # (Auto) Seg Neutrophils % Seg Neuts % (Manual) Lymphocytes % (Manual) Monocytes % (Manual) Basophils % (Manual) Seg Neutrophils # Seg Neutrophils # Man Lymphocytes # (Manual) Monocytes # (Manual) Eosinophils # (Manual) Basophils # (Manual) PT INR D-Dimer ABG pH POC ABG pCO2 POC ABG pO2 ABG pO2 ABG HCO3 ABG O2 Saturation ABG Base Excess ABG Hemoglobin ABG Oxyhemoglobin ABG Potassium ABG Glucose Oxyhemoglobin Carboxyhemoglobin Sodium Potassium Chloride Carbon Dioxide BUN Creatinine Glucose POC Glucose 160 H Calcium Ferritin Total Bilirubin Alkaline Phosphatase Lactate Dehydrogenase Total Creatine Kinase CK-MB (CK-2) Rel Index Troponin T C-Reactive Protein 4.70 H Total Protein Albumin Prealbumin 0.090 L LDL Cholesterol Direct HDL Cholesterol Arterial Blood Glucose Arterial Blood Ionized Calcium Urine WBC (Auto) 02/28/20 02/29/20 02/29/20 17:34 00:44 04:05 WBC 19.6 H RBC Hgb Hct MCV MCH 27 L RDW 15.4 H Plt Count Lymph % (Auto) [place] % (Auto) Lymph # (Auto) [place] # (Auto) Seg Neutrophils % Seg Neuts % (Manual) 86.0 H Lymphocytes % (Manual) 7.0 L Monocytes % (Manual) Basophils % (Manual) Seg Neutrophils # Seg Neutrophils # Man 16.9 H Lymphocytes # (Manual) Monocytes # (Manual) 1.2 H Eosinophils # (Manual) Basophils # (Manual) PT INR D-Dimer ABG pH POC ABG pCO2 POC ABG pO2 ABG pO2 ABG HCO3 ABG O2 Saturation ABG Base Excess ABG Hemoglobin ABG Oxyhemoglobin ABG Potassium ABG Glucose Oxyhemoglobin Carboxyhemoglobin Sodium Potassium Chloride Carbon Dioxide BUN Creatinine Glucose POC Glucose 136 H 156 H Calcium Ferritin Total Bilirubin Alkaline Phosphatase Lactate Dehydrogenase Total Creatine Kinase CK-MB (CK-2) Rel Index Troponin T C-Reactive Protein Total Protein Albumin Prealbumin LDL Cholesterol Direct HDL Cholesterol Arterial Blood Glucose Arterial Blood Ionized Calcium Urine WBC (Auto) 02/29/20 02/29/20 02/29/20 04:05 05:14 05:33 WBC RBC Hgb Hct MCV MCH RDW Plt Count Lymph % (Auto) [place] % (Auto) Lymph # (Auto) [place] # (Auto) Seg Neutrophils % Seg Neuts % (Manual) Lymphocytes % (Manual) Monocytes % (Manual) Basophils % (Manual) Seg Neutrophils # Seg Neutrophils # Man Lymphocytes # (Manual) Monocytes # (Manual) Eosinophils # (Manual) Basophils # (Manual) PT INR D-Dimer ABG pH POC ABG pCO2 54.3 H POC ABG pO2 124.8 H ABG pO2 ABG HCO3 ABG O2 Saturation ABG Base Excess ABG Hemoglobin ABG Oxyhemoglobin ABG Potassium ABG Glucose 185 H Oxyhemoglobin Carboxyhemoglobin Sodium 148 H Potassium Chloride Carbon Dioxide 33 H BUN Creatinine < 0.2 L Glucose 173 H POC Glucose 152 H Calcium Ferritin Total Bilirubin Alkaline Phosphatase Lactate Dehydrogenase Total Creatine Kinase CK-MB (CK-2) Rel Index Troponin T C-Reactive Protein Total Protein Albumin Prealbumin LDL Cholesterol Direct HDL Cholesterol Arterial Blood Glucose 185 H Arterial Blood Ionized Calcium Urine WBC (Auto) 03/01/20 03/01/20 03/01/20 00:00 03:45 04:33 WBC 23.1 H RBC Hgb Hct MCV MCH 27 L RDW 15.3 H Plt Count Lymph % (Auto) [place] % (Auto) Lymph # (Auto) [place] # (Auto) Seg Neutrophils % Seg Neuts % (Manual) 92.0 H Lymphocytes % (Manual) 6.0 L Monocytes % (Manual) Basophils % (Manual) Seg Neutrophils # Seg Neutrophils # Man 21.3 H Lymphocytes # (Manual) Monocytes # (Manual) Eosinophils # (Manual) 0.5 H Basophils # (Manual) PT INR D-Dimer ABG pH 7.492 H POC ABG pCO2 POC ABG pO2 ABG pO2 157.1 H ABG HCO3 32.3 H ABG O2 Saturation ABG Base Excess 8.1 H ABG Hemoglobin 13.2 L ABG Oxyhemoglobin ABG Potassium ABG Glucose Oxyhemoglobin Carboxyhemoglobin Sodium Potassium Chloride Carbon Dioxide BUN Creatinine Glucose POC Glucose 109 H Calcium Ferritin Total Bilirubin Alkaline Phosphatase Lactate Dehydrogenase Total Creatine Kinase CK-MB (CK-2) Rel Index Troponin T C-Reactive Protein Total Protein Albumin Prealbumin LDL Cholesterol Direct HDL Cholesterol Arterial Blood Glucose Arterial Blood Ionized Calcium Urine WBC (Auto) 03/01/20 03/01/20 03/01/20 04:33 05:29 12:32 WBC RBC Hgb Hct MCV MCH RDW Plt Count Lymph % (Auto) [place] % (Auto) Lymph # (Auto) [place] # (Auto) Seg Neutrophils % Seg Neuts % (Manual) Lymphocytes % (Manual) Monocytes % (Manual) Basophils % (Manual) Seg Neutrophils # Seg Neutrophils # Man Lymphocytes # (Manual) Monocytes # (Manual) Eosinophils # (Manual) Basophils # (Manual) PT INR D-Dimer ABG pH POC ABG pCO2 POC ABG pO2 ABG pO2 ABG HCO3 ABG O2 Saturation ABG Base Excess ABG Hemoglobin ABG Oxyhemoglobin ABG Potassium ABG Glucose Oxyhemoglobin Carboxyhemoglobin Sodium 146 H Potassium Chloride Carbon Dioxide 32 H BUN Creatinine < 0.2 L Glucose 120 H POC Glucose 120 H 128 H Calcium Ferritin Total Bilirubin Alkaline Phosphatase Lactate Dehydrogenase Total Creatine Kinase CK-MB (CK-2) Rel Index Troponin T C-Reactive Protein Total Protein Albumin Prealbumin LDL Cholesterol Direct HDL Cholesterol Arterial Blood Glucose Arterial Blood Ionized Calcium Urine WBC (Auto) 03/01/20 03/01/20 03/02/20 17:38 23:46 06:13 WBC RBC Hgb Hct MCV MCH RDW Plt Count Lymph % (Auto) [place] % (Auto) Lymph # (Auto) [place] # (Auto) Seg Neutrophils % Seg Neuts % (Manual) Lymphocytes % (Manual) Monocytes % (Manual) Basophils % (Manual) Seg Neutrophils # Seg Neutrophils # Man Lymphocytes # (Manual) Monocytes # (Manual) Eosinophils # (Manual) Basophils # (Manual) PT INR D-Dimer ABG pH POC ABG pCO2 POC ABG pO2 ABG pO2 ABG HCO3 ABG O2 Saturation ABG Base Excess ABG Hemoglobin ABG Oxyhemoglobin ABG Potassium ABG Glucose Oxyhemoglobin Carboxyhemoglobin Sodium Potassium Chloride Carbon Dioxide BUN Creatinine Glucose POC Glucose 114 H 121 H 120 H Calcium Ferritin Total Bilirubin Alkaline Phosphatase Lactate Dehydrogenase Total Creatine Kinase CK-MB (CK-2) Rel Index Troponin T C-Reactive Protein Total Protein Albumin Prealbumin LDL Cholesterol Direct HDL Cholesterol Arterial Blood Glucose Arterial Blood Ionized Calcium Urine WBC (Auto) 03/02/20 03/02/20 03/03/20 09:47 09:47 10:21 WBC 23.6 H RBC Hgb Hct MCV MCH RDW 15.3 H Plt Count 494 H Lymph % (Auto) [place] % (Auto) Lymph # (Auto) [place] # (Auto) Seg Neutrophils % Seg Neuts % (Manual) 85.0 H Lymphocytes % (Manual) 6.0 L Monocytes % (Manual) Basophils % (Manual) Seg Neutrophils # Seg Neutrophils # Man 20.1 H Lymphocytes # (Manual) Monocytes # (Manual) 1.7 H Eosinophils # (Manual) Basophils # (Manual) PT INR D-Dimer ABG pH POC ABG pCO2 POC ABG pO2 ABG pO2 ABG HCO3 ABG O2 Saturation ABG Base Excess ABG Hemoglobin ABG Oxyhemoglobin ABG Potassium 3.3 L ABG Glucose 158 H Oxyhemoglobin Carboxyhemoglobin Sodium Potassium Chloride Carbon Dioxide BUN Creatinine < 0.2 L Glucose 177 H POC Glucose Calcium Ferritin Total Bilirubin Alkaline Phosphatase Lactate Dehydrogenase Total Creatine Kinase CK-MB (CK-2) Rel Index Troponin T C-Reactive Protein Total Protein Albumin Prealbumin LDL Cholesterol Direct HDL Cholesterol Arterial Blood Glucose 158 H Arterial Blood Ionized Calcium Urine WBC (Auto) 03/03/20 03/04/20 03/04/20 21:30 00:00 12:23 WBC RBC Hgb Hct MCV MCH RDW Plt Count Lymph % (Auto) [place] % (Auto) Lymph # (Auto) [place] # (Auto) Seg Neutrophils % Seg Neuts % (Manual) Lymphocytes % (Manual) Monocytes % (Manual) Basophils % (Manual) Seg Neutrophils # Seg Neutrophils # Man Lymphocytes # (Manual) Monocytes # (Manual) Eosinophils # (Manual) Basophils # (Manual) PT INR D-Dimer ABG pH 7.328 L POC ABG pCO2 POC ABG pO2 ABG pO2 68.4 L ABG HCO3 35.0 H ABG O2 Saturation 93.9 L ABG Base Excess 6.8 H ABG Hemoglobin 12.7 L ABG Oxyhemoglobin ABG Potassium ABG Glucose Oxyhemoglobin 91.9 L Carboxyhemoglobin Sodium Potassium Chloride Carbon Dioxide BUN Creatinine Glucose POC Glucose 187 H 163 H Calcium Ferritin Total Bilirubin Alkaline Phosphatase Lactate Dehydrogenase Total Creatine Kinase CK-MB (CK-2) Rel Index Troponin T C-Reactive Protein Total Protein Albumin Prealbumin LDL Cholesterol Direct HDL Cholesterol Arterial Blood Glucose Arterial Blood Ionized Calcium Urine WBC (Auto) 03/04/20 03/04/20 03/05/20 18:15 21:30 06:02 WBC RBC Hgb Hct MCV MCH RDW Plt Count Lymph % (Auto) [place] % (Auto) Lymph # (Auto) [place] # (Auto) Seg Neutrophils % Seg Neuts % (Manual) Lymphocytes % (Manual) Monocytes % (Manual) Basophils % (Manual) Seg Neutrophils # Seg Neutrophils # Man Lymphocytes # (Manual) Monocytes # (Manual) Eosinophils # (Manual) Basophils # (Manual) PT INR D-Dimer ABG pH 7.297 L POC ABG pCO2 POC ABG pO2 ABG pO2 ABG HCO3 41.0 H ABG O2 Saturation ABG Base Excess 11.0 H ABG Hemoglobin 13.1 L ABG Oxyhemoglobin ABG Potassium ABG Glucose Oxyhemoglobin 94.5 L Carboxyhemoglobin Sodium Potassium Chloride Carbon Dioxide BUN Creatinine Glucose POC Glucose 192 H 127 H Calcium Ferritin Total Bilirubin Alkaline Phosphatase Lactate Dehydrogenase Total Creatine Kinase CK-MB (CK-2) Rel Index Troponin T C-Reactive Protein Total Protein Albumin Prealbumin LDL Cholesterol Direct HDL Cholesterol Arterial Blood Glucose Arterial Blood Ionized Calcium Urine WBC (Auto) 03/05/20 03/05/20 03/06/20 12:09 16:42 00:24 WBC RBC Hgb Hct MCV MCH RDW Plt Count Lymph % (Auto) [place] % (Auto) Lymph # (Auto) [place] # (Auto) Seg Neutrophils % Seg Neuts % (Manual) Lymphocytes % (Manual) Monocytes % (Manual) Basophils % (Manual) Seg Neutrophils # Seg Neutrophils # Man Lymphocytes # (Manual) Monocytes # (Manual) Eosinophils # (Manual) Basophils # (Manual) PT INR D-Dimer ABG pH POC ABG pCO2 POC ABG pO2 ABG pO2 ABG HCO3 ABG O2 Saturation ABG Base Excess ABG Hemoglobin ABG Oxyhemoglobin ABG Potassium ABG Glucose Oxyhemoglobin Carboxyhemoglobin Sodium Potassium Chloride Carbon Dioxide BUN Creatinine Glucose POC Glucose 147 H 114 H 134 H Calcium Ferritin Total Bilirubin Alkaline Phosphatase Lactate Dehydrogenase Total Creatine Kinase CK-MB (CK-2) Rel Index Troponin T C-Reactive Protein Total Protein Albumin Prealbumin LDL Cholesterol Direct HDL Cholesterol Arterial Blood Glucose Arterial Blood Ionized Calcium Urine WBC (Auto) 03/06/20 03/06/20 03/06/20 04:34 05:53 06:08 WBC 25.4 H RBC Hgb 10.5 L Hct 32.7 L MCV MCH 27 L RDW 15.3 H Plt Count 634 H Lymph % (Auto) [place] % (Auto) Lymph # (Auto) [place] # (Auto) Seg Neutrophils % Seg Neuts % (Manual) 88.0 H Lymphocytes % (Manual) 2.0 L Monocytes % (Manual) 8.0 H Basophils % (Manual) Seg Neutrophils # Seg Neutrophils # Man 22.4 H Lymphocytes # (Manual) 0.5 L Monocytes # (Manual) 2.0 H Eosinophils # (Manual) Basophils # (Manual) PT INR D-Dimer ABG pH POC ABG pCO2 POC ABG pO2 ABG pO2 ABG HCO3 37.9 H ABG O2 Saturation ABG Base Excess 11.4 H ABG Hemoglobin 10.6 L ABG Oxyhemoglobin ABG Potassium ABG Glucose Oxyhemoglobin 94.7 L Carboxyhemoglobin Sodium Potassium Chloride Carbon Dioxide BUN Creatinine Glucose POC Glucose 135 H Calcium Ferritin Total Bilirubin Alkaline Phosphatase Lactate Dehydrogenase Total Creatine Kinase CK-MB (CK-2) Rel Index Troponin T C-Reactive Protein Total Protein Albumin Prealbumin LDL Cholesterol Direct HDL Cholesterol Arterial Blood Glucose Arterial Blood Ionized Calcium Urine WBC (Auto) 03/06/20 03/06/20 03/06/20 06:08 12:19 19:10 WBC RBC Hgb Hct MCV MCH RDW Plt Count Lymph % (Auto) [place] % (Auto) Lymph # (Auto) [place] # (Auto) Seg Neutrophils % Seg Neuts % (Manual) Lymphocytes % (Manual) Monocytes % (Manual) Basophils % (Manual) Seg Neutrophils # Seg Neutrophils # Man Lymphocytes # (Manual) Monocytes # (Manual) Eosinophils # (Manual) Basophils # (Manual) PT INR D-Dimer ABG pH POC ABG pCO2 POC ABG pO2 ABG pO2 ABG HCO3 ABG O2 Saturation ABG Base Excess ABG Hemoglobin ABG Oxyhemoglobin ABG Potassium ABG Glucose Oxyhemoglobin Carboxyhemoglobin Sodium 150 H D Potassium Chloride Carbon Dioxide 39 H D BUN 23 H Creatinine < 0.2 L Glucose 144 H POC Glucose 169 H 152 H Calcium Ferritin Total Bilirubin Alkaline Phosphatase Lactate Dehydrogenase Total Creatine Kinase CK-MB (CK-2) Rel Index Troponin T C-Reactive Protein Total Protein Albumin 3.3 L Prealbumin LDL Cholesterol Direct HDL Cholesterol Arterial Blood Glucose Arterial Blood Ionized Calcium Urine WBC (Auto) 03/06/20 03/07/20 03/07/20 23:58 04:25 04:25 WBC 22.1 H RBC Hgb 10.9 L Hct 32.9 L MCV MCH RDW 15.5 H Plt Count 739 H Lymph % (Auto) 7.8 L [place] % (Auto) Lymph # (Auto) [place] # (Auto) 1.3 H Seg Neutrophils % 85.5 H Seg Neuts % (Manual) Lymphocytes % (Manual) Monocytes % (Manual) Basophils % (Manual) Seg Neutrophils # 18.9 H Seg Neutrophils # Man Lymphocytes # (Manual) Monocytes # (Manual) Eosinophils # (Manual) Basophils # (Manual) PT INR D-Dimer ABG pH POC ABG pCO2 POC ABG pO2 ABG pO2 ABG HCO3 ABG O2 Saturation ABG Base Excess ABG Hemoglobin ABG Oxyhemoglobin ABG Potassium ABG Glucose Oxyhemoglobin Carboxyhemoglobin Sodium 146 H Potassium Chloride Carbon Dioxide 37 H BUN Creatinine < 0.2 L Glucose 118 H POC Glucose 111 H Calcium Ferritin Total Bilirubin Alkaline Phosphatase Lactate Dehydrogenase Total Creatine Kinase CK-MB (CK-2) Rel Index Troponin T C-Reactive Protein Total Protein Albumin 3.7 L Prealbumin LDL Cholesterol Direct HDL Cholesterol Arterial Blood Glucose Arterial Blood Ionized Calcium Urine WBC (Auto) 03/07/20 03/07/20 03/07/20 05:20 17:45 23:32 WBC RBC Hgb Hct MCV MCH RDW Plt Count Lymph % (Auto) [place] % (Auto) Lymph # (Auto) [place] # (Auto) Seg Neutrophils % Seg Neuts % (Manual) Lymphocytes % (Manual) Monocytes % (Manual) Basophils % (Manual) Seg Neutrophils # Seg Neutrophils # Man Lymphocytes # (Manual) Monocytes # (Manual) Eosinophils # (Manual) Basophils # (Manual) PT INR D-Dimer ABG pH POC ABG pCO2 POC ABG pO2 ABG pO2 ABG HCO3 ABG O2 Saturation ABG Base Excess ABG Hemoglobin ABG Oxyhemoglobin ABG Potassium ABG Glucose Oxyhemoglobin Carboxyhemoglobin Sodium Potassium Chloride Carbon Dioxide BUN Creatinine Glucose POC Glucose 113 H 124 H 210 H Calcium Ferritin Total Bilirubin Alkaline Phosphatase Lactate Dehydrogenase Total Creatine Kinase CK-MB (CK-2) Rel Index Troponin T C-Reactive Protein Total Protein Albumin Prealbumin LDL Cholesterol Direct HDL Cholesterol Arterial Blood Glucose Arterial Blood Ionized Calcium Urine WBC (Auto) 03/08/20 03/08/20 03/08/20 05:35 06:43 06:43 WBC 28.9 H RBC 3.53 L Hgb 9.7 L Hct 30.3 L MCV MCH RDW 15.6 H Plt Count 578 H Lymph % (Auto) [place] % (Auto) Lymph # (Auto) [place] # (Auto) Seg Neutrophils % Seg Neuts % (Manual) 93.0 H Lymphocytes % (Manual) 4.0 L Monocytes % (Manual) Basophils % (Manual) Seg Neutrophils # Seg Neutrophils # Man 26.9 H Lymphocytes # (Manual) Monocytes # (Manual) Eosinophils # (Manual) Basophils # (Manual) PT INR D-Dimer ABG pH POC ABG pCO2 POC ABG pO2 ABG pO2 ABG HCO3 ABG O2 Saturation ABG Base Excess ABG Hemoglobin ABG Oxyhemoglobin ABG Potassium ABG Glucose Oxyhemoglobin Carboxyhemoglobin Sodium 146 H Potassium Chloride Carbon Dioxide 35 H BUN 34 H Creatinine 0.3 L D Glucose 125 H POC Glucose 147 H Calcium Ferritin Total Bilirubin Alkaline Phosphatase Lactate Dehydrogenase Total Creatine Kinase CK-MB (CK-2) Rel Index Troponin T C-Reactive Protein Total Protein 5.9 L Albumin 3.2 L Prealbumin LDL Cholesterol Direct HDL Cholesterol Arterial Blood Glucose Arterial Blood Ionized Calcium Urine WBC (Auto) 03/08/20 03/08/20 03/08/20 08:57 11:14 12:34 WBC RBC Hgb Hct MCV MCH RDW Plt Count Lymph % (Auto) [place] % (Auto) Lymph # (Auto) [place] # (Auto) Seg Neutrophils % Seg Neuts % (Manual) Lymphocytes % (Manual) Monocytes % (Manual) Basophils % (Manual) Seg Neutrophils # Seg Neutrophils # Man Lymphocytes # (Manual) Monocytes # (Manual) Eosinophils # (Manual) Basophils # (Manual) PT INR D-Dimer ABG pH POC ABG pCO2 63.1 H POC ABG pO2 ABG pO2 ABG HCO3 ABG O2 Saturation ABG Base Excess ABG Hemoglobin 10.9 L ABG Oxyhemoglobin ABG Potassium ABG Glucose 176 H Oxyhemoglobin Carboxyhemoglobin Sodium Potassium Chloride Carbon Dioxide BUN Creatinine Glucose POC Glucose 171 H Calcium Ferritin Total Bilirubin Alkaline Phosphatase Lactate Dehydrogenase Total Creatine Kinase CK-MB (CK-2) Rel Index Troponin T C-Reactive Protein Total Protein Albumin Prealbumin LDL Cholesterol Direct HDL Cholesterol Arterial Blood Glucose 176 H Arterial Blood Ionized Calcium 4.5 L Urine WBC (Auto) 10.0 H 03/08/20 03/08/20 03/09/20 18:02 23:43 05:49 WBC RBC Hgb Hct MCV MCH RDW Plt Count Lymph % (Auto) [place] % (Auto) Lymph # (Auto) [place] # (Auto) Seg Neutrophils % Seg Neuts % (Manual) Lymphocytes % (Manual) Monocytes % (Manual) Basophils % (Manual) Seg Neutrophils # Seg Neutrophils # Man Lymphocytes # (Manual) Monocytes # (Manual) Eosinophils # (Manual) Basophils # (Manual) PT INR D-Dimer ABG pH POC ABG pCO2 POC ABG pO2 ABG pO2 ABG HCO3 ABG O2 Saturation ABG Base Excess ABG Hemoglobin ABG Oxyhemoglobin ABG Potassium ABG Glucose Oxyhemoglobin Carboxyhemoglobin Sodium Potassium Chloride Carbon Dioxide BUN Creatinine Glucose POC Glucose 157 H 134 H 163 H Calcium Ferritin Total Bilirubin Alkaline Phosphatase Lactate Dehydrogenase Total Creatine Kinase CK-MB (CK-2) Rel Index Troponin T C-Reactive Protein Total Protein Albumin Prealbumin LDL Cholesterol Direct HDL Cholesterol Arterial Blood Glucose Arterial Blood Ionized Calcium Urine WBC (Auto) 03/09/20 03/09/20 03/09/20 08:35 08:35 12:11 WBC 23.4 H RBC 3.36 L Hgb 9.3 L Hct 28.8 L MCV MCH RDW 15.9 H Plt Count 521 H Lymph % (Auto) [place] % (Auto) Lymph # (Auto) [place] # (Auto) Seg Neutrophils % Seg Neuts % (Manual) 87.0 H Lymphocytes % (Manual) 4.0 L Monocytes % (Manual) 9.0 H Basophils % (Manual) Seg Neutrophils # Seg Neutrophils # Man 20.4 H Lymphocytes # (Manual) 0.9 L Monocytes # (Manual) 2.1 H Eosinophils # (Manual) Basophils # (Manual) PT INR D-Dimer ABG pH POC ABG pCO2 POC ABG pO2 ABG pO2 ABG HCO3 ABG O2 Saturation ABG Base Excess ABG Hemoglobin ABG Oxyhemoglobin ABG Potassium ABG Glucose Oxyhemoglobin Carboxyhemoglobin Sodium 147 H Potassium Chloride Carbon Dioxide 37 H BUN 63 H Creatinine Glucose 154 H POC Glucose 128 H Calcium Ferritin Total Bilirubin Alkaline Phosphatase Lactate Dehydrogenase Total Creatine Kinase CK-MB (CK-2) Rel Index Troponin T C-Reactive Protein Total Protein Albumin Prealbumin LDL Cholesterol Direct HDL Cholesterol Arterial Blood Glucose Arterial Blood Ionized Calcium Urine WBC (Auto) 03/09/20 03/10/20 03/10/20 17:51 00:25 05:41 WBC RBC Hgb Hct MCV MCH RDW Plt Count Lymph % (Auto) [place] % (Auto) Lymph # (Auto) [place] # (Auto) Seg Neutrophils % Seg Neuts % (Manual) Lymphocytes % (Manual) Monocytes % (Manual) Basophils % (Manual) Seg Neutrophils # Seg Neutrophils # Man Lymphocytes # (Manual) Monocytes # (Manual) Eosinophils # (Manual) Basophils # (Manual) PT INR D-Dimer ABG pH POC ABG pCO2 POC ABG pO2 ABG pO2 ABG HCO3 ABG O2 Saturation ABG Base Excess ABG Hemoglobin ABG Oxyhemoglobin ABG Potassium ABG Glucose Oxyhemoglobin Carboxyhemoglobin Sodium Potassium Chloride Carbon Dioxide BUN Creatinine Glucose POC Glucose 127 H 128 H 153 H Calcium Ferritin Total Bilirubin Alkaline Phosphatase Lactate Dehydrogenase Total Creatine Kinase CK-MB (CK-2) Rel Index Troponin T C-Reactive Protein Total Protein Albumin Prealbumin LDL Cholesterol Direct HDL Cholesterol Arterial Blood Glucose Arterial Blood Ionized Calcium Urine WBC (Auto) 03/10/20 03/10/20 03/10/20 06:14 06:14 12:02 WBC 18.3 H RBC 3.45 L Hgb 9.5 L Hct 29.5 L MCV MCH RDW 16.1 H Plt Count 494 H Lymph % (Auto) [place] % (Auto) Lymph # (Auto) [place] # (Auto) Seg Neutrophils % Seg Neuts % (Manual) 95.0 H Lymphocytes % (Manual) 1.0 L Monocytes % (Manual) Basophils % (Manual) Seg Neutrophils # Seg Neutrophils # Man 17.4 H Lymphocytes # (Manual) 0.2 L Monocytes # (Manual) Eosinophils # (Manual) Basophils # (Manual) PT INR D-Dimer ABG pH POC ABG pCO2 POC ABG pO2 ABG pO2 ABG HCO3 ABG O2 Saturation ABG Base Excess ABG Hemoglobin ABG Oxyhemoglobin ABG Potassium ABG Glucose Oxyhemoglobin Carboxyhemoglobin Sodium 149 H Potassium Chloride Carbon Dioxide 35 H BUN 34 H Creatinine 0.2 L D Glucose 177 H POC Glucose 151 H Calcium Ferritin Total Bilirubin Alkaline Phosphatase Lactate Dehydrogenase Total Creatine Kinase CK-MB (CK-2) Rel Index Troponin T C-Reactive Protein Total Protein Albumin Prealbumin LDL Cholesterol Direct HDL Cholesterol Arterial Blood Glucose Arterial Blood Ionized Calcium Urine WBC (Auto) 03/10/20 03/10/20 03/11/20 17:41 23:53 05:02 WBC RBC Hgb Hct MCV MCH RDW Plt Count Lymph % (Auto) [place] % (Auto) Lymph # (Auto) [place] # (Auto) Seg Neutrophils % Seg Neuts % (Manual) Lymphocytes % (Manual) Monocytes % (Manual) Basophils % (Manual) Seg Neutrophils # Seg Neutrophils # Man Lymphocytes # (Manual) Monocytes # (Manual) Eosinophils # (Manual) Basophils # (Manual) PT INR D-Dimer ABG pH POC ABG pCO2 POC ABG pO2 ABG pO2 ABG HCO3 ABG O2 Saturation ABG Base Excess ABG Hemoglobin ABG Oxyhemoglobin ABG Potassium ABG Glucose Oxyhemoglobin Carboxyhemoglobin Sodium Potassium Chloride Carbon Dioxide BUN Creatinine Glucose POC Glucose 168 H 142 H 146 H Calcium Ferritin Total Bilirubin Alkaline Phosphatase Lactate Dehydrogenase Total Creatine Kinase CK-MB (CK-2) Rel Index Troponin T C-Reactive Protein Total Protein Albumin Prealbumin LDL Cholesterol Direct HDL Cholesterol Arterial Blood Glucose Arterial Blood Ionized Calcium Urine WBC (Auto) 03/11/20 03/11/20 03/11/20 11:30 14:01 14:01 WBC 19.7 H RBC 3.04 L Hgb 8.7 L Hct 25.8 L MCV MCH RDW 15.6 H Plt Count Lymph % (Auto) [place] % (Auto) Lymph # (Auto) [place] # (Auto) Seg Neutrophils % Seg Neuts % (Manual) Lymphocytes % (Manual) Monocytes % (Manual) Basophils % (Manual) Seg Neutrophils # Seg Neutrophils # Man Lymphocytes # (Manual) Monocytes # (Manual) Eosinophils # (Manual) Basophils # (Manual) PT INR D-Dimer ABG pH POC ABG pCO2 POC ABG pO2 ABG pO2 ABG HCO3 ABG O2 Saturation ABG Base Excess ABG Hemoglobin ABG Oxyhemoglobin ABG Potassium ABG Glucose Oxyhemoglobin Carboxyhemoglobin Sodium 151 H Potassium Chloride Carbon Dioxide 37 H BUN Creatinine < 0.2 L Glucose 171 H POC Glucose 248 H Calcium Ferritin Total Bilirubin Alkaline Phosphatase Lactate Dehydrogenase Total Creatine Kinase CK-MB (CK-2) Rel Index Troponin T C-Reactive Protein Total Protein Albumin Prealbumin LDL Cholesterol Direct HDL Cholesterol Arterial Blood Glucose Arterial Blood Ionized Calcium Urine WBC (Auto) 03/11/20 03/11/20 03/12/20 17:09 23:52 04:39 WBC 19.9 H RBC 3.16 L Hgb 8.9 L Hct 27.5 L MCV MCH RDW 15.7 H Plt Count Lymph % (Auto) 6.8 L [place] % (Auto) Lymph # (Auto) [place] # (Auto) 1.2 H Seg Neutrophils % 86.0 H Seg Neuts % (Manual) Lymphocytes % (Manual) Monocytes % (Manual) Basophils % (Manual) Seg Neutrophils # 17.1 H Seg Neutrophils # Man Lymphocytes # (Manual) Monocytes # (Manual) Eosinophils # (Manual) Basophils # (Manual) PT INR D-Dimer ABG pH POC ABG pCO2 POC ABG pO2 ABG pO2 ABG HCO3 ABG O2 Saturation ABG Base Excess ABG Hemoglobin ABG Oxyhemoglobin ABG Potassium ABG Glucose Oxyhemoglobin Carboxyhemoglobin Sodium Potassium Chloride Carbon Dioxide BUN Creatinine Glucose POC Glucose 124 H 131 H Calcium Ferritin Total Bilirubin Alkaline Phosphatase Lactate Dehydrogenase Total Creatine Kinase CK-MB (CK-2) Rel Index Troponin T C-Reactive Protein Total Protein Albumin Prealbumin LDL Cholesterol Direct HDL Cholesterol Arterial Blood Glucose Arterial Blood Ionized Calcium Urine WBC (Auto) 03/12/20 03/12/20 03/12/20 04:39 05:28 11:34 WBC RBC Hgb Hct MCV MCH RDW Plt Count Lymph % (Auto) [place] % (Auto) Lymph # (Auto) [place] # (Auto) Seg Neutrophils % Seg Neuts % (Manual) Lymphocytes % (Manual) Monocytes % (Manual) Basophils % (Manual) Seg Neutrophils # Seg Neutrophils # Man Lymphocytes # (Manual) Monocytes # (Manual) Eosinophils # (Manual) Basophils # (Manual) PT INR D-Dimer ABG pH POC ABG pCO2 POC ABG pO2 ABG pO2 ABG HCO3 ABG O2 Saturation ABG Base Excess ABG Hemoglobin ABG Oxyhemoglobin ABG Potassium ABG Glucose Oxyhemoglobin Carboxyhemoglobin Sodium 147 H Potassium Chloride Carbon Dioxide 40 H BUN Creatinine < 0.2 L Glucose 175 H POC Glucose 167 H 144 H Calcium Ferritin Total Bilirubin Alkaline Phosphatase Lactate Dehydrogenase Total Creatine Kinase CK-MB (CK-2) Rel Index Troponin T C-Reactive Protein Total Protein Albumin Prealbumin LDL Cholesterol Direct HDL Cholesterol Arterial Blood Glucose Arterial Blood Ionized Calcium Urine WBC (Auto) 03/12/20 03/12/20 03/13/20 17:32 23:57 05:57 WBC RBC Hgb Hct MCV MCH RDW Plt Count Lymph % (Auto) [place] % (Auto) Lymph # (Auto) [place] # (Auto) Seg Neutrophils % Seg Neuts % (Manual) Lymphocytes % (Manual) Monocytes % (Manual) Basophils % (Manual) Seg Neutrophils # Seg Neutrophils # Man Lymphocytes # (Manual) Monocytes # (Manual) Eosinophils # (Manual) Basophils # (Manual) PT INR D-Dimer ABG pH POC ABG pCO2 POC ABG pO2 ABG pO2 ABG HCO3 ABG O2 Saturation ABG Base Excess ABG Hemoglobin ABG Oxyhemoglobin ABG Potassium ABG Glucose Oxyhemoglobin Carboxyhemoglobin Sodium Potassium Chloride Carbon Dioxide BUN Creatinine Glucose POC Glucose 141 H 137 H 161 H Calcium Ferritin Total Bilirubin Alkaline Phosphatase Lactate Dehydrogenase Total Creatine Kinase CK-MB (CK-2) Rel Index Troponin T C-Reactive Protein Total Protein Albumin Prealbumin LDL Cholesterol Direct HDL Cholesterol Arterial Blood Glucose Arterial Blood Ionized Calcium Urine WBC (Auto) 03/13/20 03/13/20 03/13/20 12:28 14:14 18:39 WBC RBC Hgb Hct MCV MCH RDW Plt Count Lymph % (Auto) [place] % (Auto) Lymph # (Auto) [place] # (Auto) Seg Neutrophils % Seg Neuts % (Manual) Lymphocytes % (Manual) Monocytes % (Manual) Basophils % (Manual) Seg Neutrophils # Seg Neutrophils # Man Lymphocytes # (Manual) Monocytes # (Manual) Eosinophils # (Manual) Basophils # (Manual) PT INR D-Dimer ABG pH POC ABG pCO2 POC ABG pO2 ABG pO2 ABG HCO3 ABG O2 Saturation ABG Base Excess ABG Hemoglobin ABG Oxyhemoglobin ABG Potassium ABG Glucose Oxyhemoglobin Carboxyhemoglobin Sodium Potassium Chloride Carbon Dioxide 39 H BUN Creatinine < 0.2 L Glucose 129 H POC Glucose 130 H 125 H Calcium Ferritin Total Bilirubin Alkaline Phosphatase Lactate Dehydrogenase Total Creatine Kinase CK-MB (CK-2) Rel Index Troponin T C-Reactive Protein Total Protein Albumin Prealbumin LDL Cholesterol Direct HDL Cholesterol Arterial Blood Glucose Arterial Blood Ionized Calcium Urine WBC (Auto) 03/13/20 03/14/20 03/14/20 23:33 05:24 08:07 WBC 16.8 H RBC 2.81 L Hgb 7.9 L Hct 23.9 L MCV MCH RDW 15.9 H Plt Count Lymph % (Auto) [place] % (Auto) Lymph # (Auto) [place] # (Auto) Seg Neutrophils % Seg Neuts % (Manual) 84.0 H Lymphocytes % (Manual) 10.0 L Monocytes % (Manual) Basophils % (Manual) Seg Neutrophils # Seg Neutrophils # Man 14.1 H Lymphocytes # (Manual) Monocytes # (Manual) Eosinophils # (Manual) Basophils # (Manual) PT INR D-Dimer ABG pH POC ABG pCO2 POC ABG pO2 ABG pO2 ABG HCO3 ABG O2 Saturation ABG Base Excess ABG Hemoglobin ABG Oxyhemoglobin ABG Potassium ABG Glucose Oxyhemoglobin Carboxyhemoglobin Sodium Potassium Chloride Carbon Dioxide BUN Creatinine Glucose POC Glucose 146 H 125 H Calcium Ferritin Total Bilirubin Alkaline Phosphatase Lactate Dehydrogenase Total Creatine Kinase CK-MB (CK-2) Rel Index Troponin T C-Reactive Protein Total Protein Albumin Prealbumin LDL Cholesterol Direct HDL Cholesterol Arterial Blood Glucose Arterial Blood Ionized Calcium Urine WBC (Auto) 03/14/20 03/14/20 03/14/20 08:07 12:21 18:26 WBC RBC Hgb Hct MCV MCH RDW Plt Count Lymph % (Auto) [place] % (Auto) Lymph # (Auto) [place] # (Auto) Seg Neutrophils % Seg Neuts % (Manual) Lymphocytes % (Manual) Monocytes % (Manual) Basophils % (Manual) Seg Neutrophils # Seg Neutrophils # Man Lymphocytes # (Manual) Monocytes # (Manual) Eosinophils # (Manual) Basophils # (Manual) PT INR D-Dimer ABG pH POC ABG pCO2 POC ABG pO2 ABG pO2 ABG HCO3 ABG O2 Saturation ABG Base Excess ABG Hemoglobin ABG Oxyhemoglobin ABG Potassium ABG Glucose Oxyhemoglobin Carboxyhemoglobin Sodium Potassium Chloride 97.0 L Carbon Dioxide 37 H BUN Creatinine < 0.2 L Glucose 129 H POC Glucose 109 H 142 H Calcium 8.3 L Ferritin Total Bilirubin Alkaline Phosphatase Lactate Dehydrogenase Total Creatine Kinase CK-MB (CK-2) Rel Index Troponin T C-Reactive Protein Total Protein Albumin Prealbumin LDL Cholesterol Direct HDL Cholesterol Arterial Blood Glucose Arterial Blood Ionized Calcium Urine WBC (Auto) 03/14/20 03/15/20 03/15/20 23:57 05:46 08:06 WBC 19.7 H RBC 3.29 L Hgb 9.1 L Hct 28.0 L MCV MCH RDW 15.9 H Plt Count Lymph % (Auto) [place] % (Auto) Lymph # (Auto) [place] # (Auto) Seg Neutrophils % Seg Neuts % (Manual) Lymphocytes % (Manual) Monocytes % (Manual) Basophils % (Manual) Seg Neutrophils # Seg Neutrophils # Man Lymphocytes # (Manual) Monocytes # (Manual) Eosinophils # (Manual) Basophils # (Manual) PT INR D-Dimer ABG pH POC ABG pCO2 POC ABG pO2 ABG pO2 ABG HCO3 ABG O2 Saturation ABG Base Excess ABG Hemoglobin ABG Oxyhemoglobin ABG Potassium ABG Glucose Oxyhemoglobin Carboxyhemoglobin Sodium Potassium Chloride Carbon Dioxide BUN Creatinine Glucose POC Glucose 157 H 118 H Calcium Ferritin Total Bilirubin Alkaline Phosphatase Lactate Dehydrogenase Total Creatine Kinase CK-MB (CK-2) Rel Index Troponin T C-Reactive Protein Total Protein Albumin Prealbumin LDL Cholesterol Direct HDL Cholesterol Arterial Blood Glucose Arterial Blood Ionized Calcium Urine WBC (Auto) 03/15/20 03/15/20 03/15/20 08:06 12:44 18:09 WBC RBC Hgb Hct MCV MCH RDW Plt Count Lymph % (Auto) [place] % (Auto) Lymph # (Auto) [place] # (Auto) Seg Neutrophils % Seg Neuts % (Manual) Lymphocytes % (Manual) Monocytes % (Manual) Basophils % (Manual) Seg Neutrophils # Seg Neutrophils # Man Lymphocytes # (Manual) Monocytes # (Manual) Eosinophils # (Manual) Basophils # (Manual) PT INR D-Dimer ABG pH POC ABG pCO2 POC ABG pO2 ABG pO2 ABG HCO3 ABG O2 Saturation ABG Base Excess ABG Hemoglobin ABG Oxyhemoglobin ABG Potassium ABG Glucose Oxyhemoglobin Carboxyhemoglobin Sodium 136 L Potassium Chloride 93.6 L Carbon Dioxide 37 H BUN Creatinine < 0.2 L Glucose 132 H POC Glucose 151 H 164 H Calcium Ferritin Total Bilirubin Alkaline Phosphatase Lactate Dehydrogenase Total Creatine Kinase CK-MB (CK-2) Rel Index Troponin T C-Reactive Protein Total Protein Albumin Prealbumin LDL Cholesterol Direct HDL Cholesterol Arterial Blood Glucose Arterial Blood Ionized Calcium Urine WBC (Auto) 03/15/20 03/16/20 03/16/20 23:26 05:39 11:58 WBC RBC Hgb Hct MCV MCH RDW Plt Count Lymph % (Auto) [place] % (Auto) Lymph # (Auto) [place] # (Auto) Seg Neutrophils % Seg Neuts % (Manual) Lymphocytes % (Manual) Monocytes % (Manual) Basophils % (Manual) Seg Neutrophils # Seg Neutrophils # Man Lymphocytes # (Manual) Monocytes # (Manual) Eosinophils # (Manual) Basophils # (Manual) PT INR D-Dimer ABG pH POC ABG pCO2 POC ABG pO2 ABG pO2 ABG HCO3 ABG O2 Saturation ABG Base Excess ABG Hemoglobin ABG Oxyhemoglobin ABG Potassium ABG Glucose Oxyhemoglobin Carboxyhemoglobin Sodium Potassium Chloride Carbon Dioxide BUN Creatinine Glucose POC Glucose 136 H 116 H 109 H Calcium Ferritin Total Bilirubin Alkaline Phosphatase Lactate Dehydrogenase Total Creatine Kinase CK-MB (CK-2) Rel Index Troponin T C-Reactive Protein Total Protein Albumin Prealbumin LDL Cholesterol Direct HDL Cholesterol Arterial Blood Glucose Arterial Blood Ionized Calcium Urine WBC (Auto) 03/16/20 03/17/20 03/17/20 23:56 04:40 04:40 WBC 18.0 H RBC 3.33 L Hgb 9.5 L Hct 28.8 L MCV MCH RDW 16.4 H Plt Count 499 H Lymph % (Auto) [place] % (Auto) Lymph # (Auto) [place] # (Auto) Seg Neutrophils % Seg Neuts % (Manual) 82.0 H Lymphocytes % (Manual) 8.0 L Monocytes % (Manual) Basophils % (Manual) Seg Neutrophils # Seg Neutrophils # Man 14.8 H Lymphocytes # (Manual) Monocytes # (Manual) 1.3 H Eosinophils # (Manual) Basophils # (Manual) 0.2 H PT INR D-Dimer ABG pH POC ABG pCO2 POC ABG pO2 ABG pO2 ABG HCO3 ABG O2 Saturation ABG Base Excess ABG Hemoglobin ABG Oxyhemoglobin ABG Potassium ABG Glucose Oxyhemoglobin Carboxyhemoglobin Sodium Potassium Chloride 97.7 L Carbon Dioxide 32 H BUN Creatinine < 0.2 L Glucose 114 H POC Glucose 131 H Calcium Ferritin Total Bilirubin Alkaline Phosphatase Lactate Dehydrogenase Total Creatine Kinase CK-MB (CK-2) Rel Index Troponin T C-Reactive Protein Total Protein Albumin Prealbumin LDL Cholesterol Direct HDL Cholesterol Arterial Blood Glucose Arterial Blood Ionized Calcium Urine WBC (Auto) 03/18/20 03/18/20 03/18/20 00:21 05:21 11:55 WBC RBC Hgb Hct MCV MCH RDW Plt Count Lymph % (Auto) [place] % (Auto) Lymph # (Auto) [place] # (Auto) Seg Neutrophils % Seg Neuts % (Manual) Lymphocytes % (Manual) Monocytes % (Manual) Basophils % (Manual) Seg Neutrophils # Seg Neutrophils # Man Lymphocytes # (Manual) Monocytes # (Manual) Eosinophils # (Manual) Basophils # (Manual) PT INR D-Dimer ABG pH POC ABG pCO2 POC ABG pO2 ABG pO2 ABG HCO3 ABG O2 Saturation ABG Base Excess ABG Hemoglobin ABG Oxyhemoglobin ABG Potassium ABG Glucose Oxyhemoglobin Carboxyhemoglobin Sodium Potassium Chloride Carbon Dioxide BUN Creatinine Glucose POC Glucose 124 H 138 H 119 H Calcium Ferritin Total Bilirubin Alkaline Phosphatase Lactate Dehydrogenase Total Creatine Kinase CK-MB (CK-2) Rel Index Troponin T C-Reactive Protein Total Protein Albumin Prealbumin LDL Cholesterol Direct HDL Cholesterol Arterial Blood Glucose Arterial Blood Ionized Calcium Urine WBC (Auto) 03/18/20 03/18/20 03/19/20 17:03 23:58 05:24 WBC RBC Hgb Hct MCV MCH RDW Plt Count Lymph % (Auto) [place] % (Auto) Lymph # (Auto) [place] # (Auto) Seg Neutrophils % Seg Neuts % (Manual) Lymphocytes % (Manual) Monocytes % (Manual) Basophils % (Manual) Seg Neutrophils # Seg Neutrophils # Man Lymphocytes # (Manual) Monocytes # (Manual) Eosinophils # (Manual) Basophils # (Manual) PT INR D-Dimer ABG pH POC ABG pCO2 POC ABG pO2 ABG pO2 ABG HCO3 ABG O2 Saturation ABG Base Excess ABG Hemoglobin ABG Oxyhemoglobin ABG Potassium ABG Glucose Oxyhemoglobin Carboxyhemoglobin Sodium Potassium Chloride Carbon Dioxide BUN Creatinine Glucose POC Glucose 128 H 128 H 115 H Calcium Ferritin Total Bilirubin Alkaline Phosphatase Lactate Dehydrogenase Total Creatine Kinase CK-MB (CK-2) Rel Index Troponin T C-Reactive Protein Total Protein Albumin Prealbumin LDL Cholesterol Direct HDL Cholesterol Arterial Blood Glucose Arterial Blood Ionized Calcium Urine WBC (Auto) 03/19/20 03/19/20 03/19/20 08:05 08:05 11:56 WBC 16.8 H RBC 3.36 L Hgb 9.4 L Hct 28.8 L MCV MCH RDW 17.4 H Plt Count 567 H Lymph % (Auto) 7.8 L [place] % (Auto) Lymph # (Auto) [place] # (Auto) 1.2 H Seg Neutrophils % 83.5 H Seg Neuts % (Manual) Lymphocytes % (Manual) Monocytes % (Manual) Basophils % (Manual) Seg Neutrophils # 14.1 H Seg Neutrophils # Man Lymphocytes # (Manual) Monocytes # (Manual) Eosinophils # (Manual) Basophils # (Manual) PT INR D-Dimer ABG pH POC ABG pCO2 POC ABG pO2 ABG pO2 ABG HCO3 ABG O2 Saturation ABG Base Excess ABG Hemoglobin ABG Oxyhemoglobin ABG Potassium ABG Glucose Oxyhemoglobin Carboxyhemoglobin Sodium Potassium Chloride Carbon Dioxide 36 H BUN Creatinine < 0.2 L Glucose 135 H POC Glucose 128 H Calcium Ferritin Total Bilirubin Alkaline Phosphatase Lactate Dehydrogenase Total Creatine Kinase CK-MB (CK-2) Rel Index Troponin T C-Reactive Protein Total Protein Albumin Prealbumin LDL Cholesterol Direct HDL Cholesterol Arterial Blood Glucose Arterial Blood Ionized Calcium Urine WBC (Auto) 03/19/20 03/20/20 03/20/20 23:59 05:12 16:52 WBC RBC Hgb Hct MCV MCH RDW Plt Count Lymph % (Auto) [place] % (Auto) Lymph # (Auto) [place] # (Auto) Seg Neutrophils % Seg Neuts % (Manual) Lymphocytes % (Manual) Monocytes % (Manual) Basophils % (Manual) Seg Neutrophils # Seg Neutrophils # Man Lymphocytes # (Manual) Monocytes # (Manual) Eosinophils # (Manual) Basophils # (Manual) PT INR D-Dimer ABG pH POC ABG pCO2 POC ABG pO2 ABG pO2 ABG HCO3 ABG O2 Saturation ABG Base Excess ABG Hemoglobin ABG Oxyhemoglobin ABG Potassium ABG Glucose Oxyhemoglobin Carboxyhemoglobin Sodium Potassium Chloride Carbon Dioxide BUN Creatinine Glucose POC Glucose 120 H 131 H 124 H Calcium Ferritin Total Bilirubin Alkaline Phosphatase Lactate Dehydrogenase Total Creatine Kinase CK-MB (CK-2) Rel Index Troponin T C-Reactive Protein Total Protein Albumin Prealbumin LDL Cholesterol Direct HDL Cholesterol Arterial Blood Glucose Arterial Blood Ionized Calcium Urine WBC (Auto) 03/20/20 03/21/20 03/21/20 23:35 04:50 07:35 WBC 15.2 H RBC 3.39 L Hgb 9.4 L Hct 29.4 L MCV MCH RDW 17.6 H Plt Count 518 H Lymph % (Auto) [place] % (Auto) Lymph # (Auto) [place] # (Auto) Seg Neutrophils % Seg Neuts % (Manual) 83.0 H Lymphocytes % (Manual) 10.0 L Monocytes % (Manual) Basophils % (Manual) 2.0 H Seg Neutrophils # Seg Neutrophils # Man 12.6 H Lymphocytes # (Manual) Monocytes # (Manual) Eosinophils # (Manual) Basophils # (Manual) 0.3 H PT INR D-Dimer ABG pH POC ABG pCO2 POC ABG pO2 ABG pO2 ABG HCO3 ABG O2 Saturation ABG Base Excess ABG Hemoglobin ABG Oxyhemoglobin ABG Potassium ABG Glucose Oxyhemoglobin Carboxyhemoglobin Sodium Potassium Chloride Carbon Dioxide BUN Creatinine Glucose POC Glucose 125 H 127 H Calcium Ferritin Total Bilirubin Alkaline Phosphatase Lactate Dehydrogenase Total Creatine Kinase CK-MB (CK-2) Rel Index Troponin T C-Reactive Protein Total Protein Albumin Prealbumin LDL Cholesterol Direct HDL Cholesterol Arterial Blood Glucose Arterial Blood Ionized Calcium Urine WBC (Auto) 03/21/20 03/21/20 03/21/20 07:35 11:45 17:22 WBC RBC Hgb Hct MCV MCH RDW Plt Count Lymph % (Auto) [place] % (Auto) Lymph # (Auto) [place] # (Auto) Seg Neutrophils % Seg Neuts % (Manual) Lymphocytes % (Manual) Monocytes % (Manual) Basophils % (Manual) Seg Neutrophils # Seg Neutrophils # Man Lymphocytes # (Manual) Monocytes # (Manual) Eosinophils # (Manual) Basophils # (Manual) PT INR D-Dimer ABG pH POC ABG pCO2 POC ABG pO2 ABG pO2 ABG HCO3 ABG O2 Saturation ABG Base Excess ABG Hemoglobin ABG Oxyhemoglobin ABG Potassium ABG Glucose Oxyhemoglobin Carboxyhemoglobin Sodium 136 L Potassium Chloride 97.7 L Carbon Dioxide 32 H BUN Creatinine < 0.2 L Glucose 103 H POC Glucose 126 H 120 H Calcium Ferritin Total Bilirubin Alkaline Phosphatase Lactate Dehydrogenase Total Creatine Kinase CK-MB (CK-2) Rel Index Troponin T C-Reactive Protein Total Protein Albumin Prealbumin LDL Cholesterol Direct HDL Cholesterol Arterial Blood Glucose Arterial Blood Ionized Calcium Urine WBC (Auto) 03/22/20 03/22/20 03/22/20 05:09 06:34 06:34 WBC 17.5 H RBC 3.52 L Hgb 10.0 L Hct 30.7 L MCV MCH RDW 17.5 H Plt Count 499 H Lymph % (Auto) [place] % (Auto) Lymph # (Auto) [place] # (Auto) Seg Neutrophils % Seg Neuts % (Manual) 80.0 H Lymphocytes % (Manual) 10.0 L Monocytes % (Manual) Basophils % (Manual) Seg Neutrophils # Seg Neutrophils # Man 14.0 H Lymphocytes # (Manual) Monocytes # (Manual) Eosinophils # (Manual) Basophils # (Manual) PT INR D-Dimer ABG pH POC ABG pCO2 POC ABG pO2 ABG pO2 ABG HCO3 ABG O2 Saturation ABG Base Excess ABG Hemoglobin ABG Oxyhemoglobin ABG Potassium ABG Glucose Oxyhemoglobin Carboxyhemoglobin Sodium Potassium Chloride 96.6 L Carbon Dioxide 38 H BUN Creatinine < 0.2 L Glucose 139 H POC Glucose 125 H Calcium Ferritin Total Bilirubin Alkaline Phosphatase Lactate Dehydrogenase Total Creatine Kinase CK-MB (CK-2) Rel Index Troponin T C-Reactive Protein Total Protein Albumin Prealbumin LDL Cholesterol Direct HDL Cholesterol Arterial Blood Glucose Arterial Blood Ionized Calcium Urine WBC (Auto) 03/22/20 03/22/20 03/22/20 11:45 18:00 23:32 WBC RBC Hgb Hct MCV MCH RDW Plt Count Lymph % (Auto) [place] % (Auto) Lymph # (Auto) [place] # (Auto) Seg Neutrophils % Seg Neuts % (Manual) Lymphocytes % (Manual) Monocytes % (Manual) Basophils % (Manual) Seg Neutrophils # Seg Neutrophils # Man Lymphocytes # (Manual) Monocytes # (Manual) Eosinophils # (Manual) Basophils # (Manual) PT INR D-Dimer ABG pH POC ABG pCO2 POC ABG pO2 ABG pO2 ABG HCO3 ABG O2 Saturation ABG Base Excess ABG Hemoglobin ABG Oxyhemoglobin ABG Potassium ABG Glucose Oxyhemoglobin Carboxyhemoglobin Sodium Potassium Chloride Carbon Dioxide BUN Creatinine Glucose POC Glucose 135 H 133 H Calcium Ferritin Total Bilirubin Alkaline Phosphatase Lactate Dehydrogenase Total Creatine Kinase CK-MB (CK-2) Rel Index Troponin T 0.113 H* C-Reactive Protein Total Protein Albumin Prealbumin LDL Cholesterol Direct HDL Cholesterol Arterial Blood Glucose Arterial Blood Ionized Calcium Urine WBC (Auto) 03/23/20 03/23/20 03/23/20 01:47 06:21 07:57 WBC RBC Hgb Hct MCV MCH RDW Plt Count Lymph % (Auto) [place] % (Auto) Lymph # (Auto) [place] # (Auto) Seg Neutrophils % Seg Neuts % (Manual) Lymphocytes % (Manual) Monocytes % (Manual) Basophils % (Manual) Seg Neutrophils # Seg Neutrophils # Man Lymphocytes # (Manual) Monocytes # (Manual) Eosinophils # (Manual) Basophils # (Manual) PT INR D-Dimer ABG pH POC ABG pCO2 POC ABG pO2 ABG pO2 ABG HCO3 ABG O2 Saturation ABG Base Excess ABG Hemoglobin ABG Oxyhemoglobin ABG Potassium ABG Glucose Oxyhemoglobin Carboxyhemoglobin Sodium Potassium Chloride Carbon Dioxide BUN Creatinine Glucose POC Glucose 130 H Calcium Ferritin Total Bilirubin Alkaline Phosphatase Lactate Dehydrogenase Total Creatine Kinase CK-MB (CK-2) Rel Index Troponin T 0.143 H* D 0.105 H* D C-Reactive Protein Total Protein Albumin Prealbumin LDL Cholesterol Direct HDL Cholesterol Arterial Blood Glucose Arterial Blood Ionized Calcium Urine WBC (Auto) 03/23/20 03/24/20 03/24/20 12:02 05:33 07:15 WBC 18.0 H RBC Hgb 11.0 L Hct 34.0 L MCV MCH RDW 17.4 H Plt Count 520 H Lymph % (Auto) [place] % (Auto) Lymph # (Auto) [place] # (Auto) Seg Neutrophils % Seg Neuts % (Manual) 88.0 H Lymphocytes % (Manual) 7.0 L Monocytes % (Manual) Basophils % (Manual) Seg Neutrophils # Seg Neutrophils # Man 15.8 H Lymphocytes # (Manual) Monocytes # (Manual) Eosinophils # (Manual) Basophils # (Manual) PT INR D-Dimer ABG pH POC ABG pCO2 POC ABG pO2 ABG pO2 ABG HCO3 ABG O2 Saturation ABG Base Excess ABG Hemoglobin ABG Oxyhemoglobin ABG Potassium ABG Glucose Oxyhemoglobin Carboxyhemoglobin Sodium Potassium Chloride Carbon Dioxide BUN Creatinine Glucose POC Glucose 137 H 112 H Calcium Ferritin Total Bilirubin Alkaline Phosphatase Lactate Dehydrogenase Total Creatine Kinase CK-MB (CK-2) Rel Index Troponin T C-Reactive Protein Total Protein Albumin Prealbumin LDL Cholesterol Direct HDL Cholesterol Arterial Blood Glucose Arterial Blood Ionized Calcium Urine WBC (Auto) 03/24/20 03/24/20 03/24/20 07:15 11:22 23:30 WBC RBC Hgb Hct MCV MCH RDW Plt Count Lymph % (Auto) [place] % (Auto) Lymph # (Auto) [place] # (Auto) Seg Neutrophils % Seg Neuts % (Manual) Lymphocytes % (Manual) Monocytes % (Manual) Basophils % (Manual) Seg Neutrophils # Seg Neutrophils # Man Lymphocytes # (Manual) Monocytes # (Manual) Eosinophils # (Manual) Basophils # (Manual) PT INR D-Dimer ABG pH POC ABG pCO2 POC ABG pO2 ABG pO2 ABG HCO3 ABG O2 Saturation ABG Base Excess ABG Hemoglobin ABG Oxyhemoglobin ABG Potassium ABG Glucose Oxyhemoglobin Carboxyhemoglobin Sodium Potassium Chloride 96.6 L Carbon Dioxide 38 H BUN Creatinine < 0.2 L Glucose 141 H POC Glucose 130 H 120 H Calcium Ferritin Total Bilirubin Alkaline Phosphatase Lactate Dehydrogenase Total Creatine Kinase CK-MB (CK-2) Rel Index Troponin T C-Reactive Protein Total Protein Albumin Prealbumin LDL Cholesterol Direct HDL Cholesterol Arterial Blood Glucose Arterial Blood Ionized Calcium Urine WBC (Auto) 03/25/20 03/25/20 03/25/20 05:48 17:53 23:18 WBC RBC Hgb Hct MCV MCH RDW Plt Count Lymph % (Auto) [place] % (Auto) Lymph # (Auto) [place] # (Auto) Seg Neutrophils % Seg Neuts % (Manual) Lymphocytes % (Manual) Monocytes % (Manual) Basophils % (Manual) Seg Neutrophils # Seg Neutrophils # Man Lymphocytes # (Manual) Monocytes # (Manual) Eosinophils # (Manual) Basophils # (Manual) PT INR D-Dimer ABG pH POC ABG pCO2 POC ABG pO2 ABG pO2 ABG HCO3 ABG O2 Saturation ABG Base Excess ABG Hemoglobin ABG Oxyhemoglobin ABG Potassium ABG Glucose Oxyhemoglobin Carboxyhemoglobin Sodium Potassium Chloride Carbon Dioxide BUN Creatinine Glucose POC Glucose 124 H 109 H 131 H Calcium Ferritin Total Bilirubin Alkaline Phosphatase Lactate Dehydrogenase Total Creatine Kinase CK-MB (CK-2) Rel Index Troponin T C-Reactive Protein Total Protein Albumin Prealbumin LDL Cholesterol Direct HDL Cholesterol Arterial Blood Glucose Arterial Blood Ionized Calcium Urine WBC (Auto) 03/26/20 03/26/20 03/26/20 05:21 08:49 08:49 WBC 19.7 H RBC Hgb 10.7 L Hct 33.5 L MCV MCH 27 L RDW 17.1 H Plt Count 480 H Lymph % (Auto) 5.7 L [place] % (Auto) Lymph # (Auto) 1.1 L [place] # (Auto) 1.2 H Seg Neutrophils % 87.7 H Seg Neuts % (Manual) Lymphocytes % (Manual) Monocytes % (Manual) Basophils % (Manual) Seg Neutrophils # 17.2 H Seg Neutrophils # Man Lymphocytes # (Manual) Monocytes # (Manual) Eosinophils # (Manual) Basophils # (Manual) PT INR D-Dimer ABG pH POC ABG pCO2 POC ABG pO2 ABG pO2 ABG HCO3 ABG O2 Saturation ABG Base Excess ABG Hemoglobin ABG Oxyhemoglobin ABG Potassium ABG Glucose Oxyhemoglobin Carboxyhemoglobin Sodium Potassium Chloride 97.2 L Carbon Dioxide 36 H BUN Creatinine < 0.2 L Glucose 127 H POC Glucose 116 H Calcium Ferritin Total Bilirubin Alkaline Phosphatase Lactate Dehydrogenase Total Creatine Kinase CK-MB (CK-2) Rel Index Troponin T C-Reactive Protein Total Protein Albumin Prealbumin LDL Cholesterol Direct HDL Cholesterol Arterial Blood Glucose Arterial Blood Ionized Calcium Urine WBC (Auto) 03/26/20 03/26/20 03/26/20 11:38 18:44 23:06 WBC RBC Hgb Hct MCV MCH RDW Plt Count Lymph % (Auto) [place] % (Auto) Lymph # (Auto) [place] # (Auto) Seg Neutrophils % Seg Neuts % (Manual) Lymphocytes % (Manual) Monocytes % (Manual) Basophils % (Manual) Seg Neutrophils # Seg Neutrophils # Man Lymphocytes # (Manual) Monocytes # (Manual) Eosinophils # (Manual) Basophils # (Manual) PT INR D-Dimer ABG pH POC ABG pCO2 POC ABG pO2 ABG pO2 ABG HCO3 ABG O2 Saturation ABG Base Excess ABG Hemoglobin ABG Oxyhemoglobin ABG Potassium ABG Glucose Oxyhemoglobin Carboxyhemoglobin Sodium Potassium Chloride Carbon Dioxide BUN Creatinine Glucose POC Glucose 120 H 111 H 134 H Calcium Ferritin Total Bilirubin Alkaline Phosphatase Lactate Dehydrogenase Total Creatine Kinase CK-MB (CK-2) Rel Index Troponin T C-Reactive Protein Total Protein Albumin Prealbumin LDL Cholesterol Direct HDL Cholesterol Arterial Blood Glucose Arterial Blood Ionized Calcium Urine WBC (Auto) 03/27/20 03/27/20 03/27/20 05:41 05:59 05:59 WBC 18.6 H RBC Hgb 10.1 L Hct 31.4 L MCV MCH RDW 17.2 H Plt Count Lymph % (Auto) 8.0 L [place] % (Auto) Lymph # (Auto) [place] # (Auto) 1.2 H Seg Neutrophils % 84.7 H Seg Neuts % (Manual) Lymphocytes % (Manual) Monocytes % (Manual) Basophils % (Manual) Seg Neutrophils # 15.8 H Seg Neutrophils # Man Lymphocytes # (Manual) Monocytes # (Manual) Eosinophils # (Manual) Basophils # (Manual) PT INR D-Dimer ABG pH POC ABG pCO2 POC ABG pO2 ABG pO2 ABG HCO3 ABG O2 Saturation ABG Base Excess ABG Hemoglobin ABG Oxyhemoglobin ABG Potassium ABG Glucose Oxyhemoglobin Carboxyhemoglobin Sodium Potassium Chloride Carbon Dioxide 34 H BUN Creatinine < 0.2 L Glucose 127 H POC Glucose 129 H Calcium Ferritin Total Bilirubin Alkaline Phosphatase Lactate Dehydrogenase Total Creatine Kinase CK-MB (CK-2) Rel Index Troponin T C-Reactive Protein Total Protein Albumin Prealbumin LDL Cholesterol Direct HDL Cholesterol Arterial Blood Glucose Arterial Blood Ionized Calcium Urine WBC (Auto) 03/27/20 03/27/20 03/28/20 17:28 23:22 05:23 WBC RBC Hgb Hct MCV MCH RDW Plt Count Lymph % (Auto) [place] % (Auto) Lymph # (Auto) [place] # (Auto) Seg Neutrophils % Seg Neuts % (Manual) Lymphocytes % (Manual) Monocytes % (Manual) Basophils % (Manual) Seg Neutrophils # Seg Neutrophils # Man Lymphocytes # (Manual) Monocytes # (Manual) Eosinophils # (Manual) Basophils # (Manual) PT INR D-Dimer ABG pH POC ABG pCO2 POC ABG pO2 ABG pO2 ABG HCO3 ABG O2 Saturation ABG Base Excess ABG Hemoglobin ABG Oxyhemoglobin ABG Potassium ABG Glucose Oxyhemoglobin Carboxyhemoglobin Sodium Potassium Chloride Carbon Dioxide BUN Creatinine Glucose POC Glucose 108 H 119 H 129 H Calcium Ferritin Total Bilirubin Alkaline Phosphatase Lactate Dehydrogenase Total Creatine Kinase CK-MB (CK-2) Rel Index Troponin T C-Reactive Protein Total Protein Albumin Prealbumin LDL Cholesterol Direct HDL Cholesterol Arterial Blood Glucose Arterial Blood Ionized Calcium Urine WBC (Auto) 03/28/20 03/28/20 03/28/20 10:28 10:28 11:36 WBC 23.6 H RBC 3.62 L Hgb 10.0 L Hct 30.8 L MCV MCH RDW 16.4 H Plt Count Lymph % (Auto) [place] % (Auto) Lymph # (Auto) [place] # (Auto) Seg Neutrophils % Seg Neuts % (Manual) 89.0 H Lymphocytes % (Manual) 5.0 L Monocytes % (Manual) Basophils % (Manual) Seg Neutrophils # Seg Neutrophils # Man 21.0 H Lymphocytes # (Manual) Monocytes # (Manual) 1.2 H Eosinophils # (Manual) Basophils # (Manual) 0.2 H PT INR D-Dimer ABG pH POC ABG pCO2 POC ABG pO2 ABG pO2 ABG HCO3 ABG O2 Saturation ABG Base Excess ABG Hemoglobin ABG Oxyhemoglobin ABG Potassium ABG Glucose Oxyhemoglobin Carboxyhemoglobin Sodium 134 L Potassium Chloride 94.2 L Carbon Dioxide 35 H BUN Creatinine < 0.2 L Glucose 134 H POC Glucose Calcium Ferritin Total Bilirubin Alkaline Phosphatase Lactate Dehydrogenase Total Creatine Kinase CK-MB (CK-2) Rel Index Troponin T C-Reactive Protein Total Protein Albumin Prealbumin LDL Cholesterol Direct HDL Cholesterol Arterial Blood Glucose Arterial Blood Ionized Calcium Urine WBC (Auto) 39.0 H 03/28/20 03/28/20 03/28/20 11:51 17:08 17:17 WBC RBC Hgb Hct MCV MCH RDW Plt Count Lymph % (Auto) [place] % (Auto) Lymph # (Auto) [place] # (Auto) Seg Neutrophils % Seg Neuts % (Manual) Lymphocytes % (Manual) Monocytes % (Manual) Basophils % (Manual) Seg Neutrophils # Seg Neutrophils # Man Lymphocytes # (Manual) Monocytes # (Manual) Eosinophils # (Manual) Basophils # (Manual) PT INR D-Dimer ABG pH POC ABG pCO2 POC ABG pO2 ABG pO2 ABG HCO3 ABG O2 Saturation ABG Base Excess ABG Hemoglobin ABG Oxyhemoglobin ABG Potassium ABG Glucose Oxyhemoglobin Carboxyhemoglobin Sodium Potassium Chloride Carbon Dioxide BUN Creatinine Glucose POC Glucose 123 H 112 H Calcium Ferritin Total Bilirubin Alkaline Phosphatase Lactate Dehydrogenase Total Creatine Kinase 47 L CK-MB (CK-2) Rel Index 4.6 H Troponin T 0.090 H C-Reactive Protein Total Protein Albumin Prealbumin LDL Cholesterol Direct HDL Cholesterol Arterial Blood Glucose Arterial Blood Ionized Calcium Urine WBC (Auto) 03/28/20 03/29/20 03/29/20 23:22 05:22 10:58 WBC RBC Hgb Hct MCV MCH RDW Plt Count Lymph % (Auto) [place] % (Auto) Lymph # (Auto) [place] # (Auto) Seg Neutrophils % Seg Neuts % (Manual) Lymphocytes % (Manual) Monocytes % (Manual) Basophils % (Manual) Seg Neutrophils # Seg Neutrophils # Man Lymphocytes # (Manual) Monocytes # (Manual) Eosinophils # (Manual) Basophils # (Manual) PT INR D-Dimer ABG pH POC ABG pCO2 POC ABG pO2 ABG pO2 ABG HCO3 ABG O2 Saturation ABG Base Excess ABG Hemoglobin ABG Oxyhemoglobin ABG Potassium ABG Glucose Oxyhemoglobin Carboxyhemoglobin Sodium Potassium Chloride Carbon Dioxide BUN Creatinine Glucose POC Glucose 122 H 116 H 133 H Calcium Ferritin Total Bilirubin Alkaline Phosphatase Lactate Dehydrogenase Total Creatine Kinase CK-MB (CK-2) Rel Index Troponin T C-Reactive Protein Total Protein Albumin Prealbumin LDL Cholesterol Direct HDL Cholesterol Arterial Blood Glucose Arterial Blood Ionized Calcium Urine WBC (Auto) 03/29/20 03/29/20 03/30/20 17:18 23:14 04:57 WBC RBC Hgb Hct MCV MCH RDW Plt Count Lymph % (Auto) [place] % (Auto) Lymph # (Auto) [place] # (Auto) Seg Neutrophils % Seg Neuts % (Manual) Lymphocytes % (Manual) Monocytes % (Manual) Basophils % (Manual) Seg Neutrophils # Seg Neutrophils # Man Lymphocytes # (Manual) Monocytes # (Manual) Eosinophils # (Manual) Basophils # (Manual) PT INR D-Dimer ABG pH POC ABG pCO2 POC ABG pO2 ABG pO2 ABG HCO3 ABG O2 Saturation ABG Base Excess ABG Hemoglobin ABG Oxyhemoglobin ABG Potassium ABG Glucose Oxyhemoglobin Carboxyhemoglobin Sodium Potassium Chloride Carbon Dioxide BUN Creatinine Glucose POC Glucose 111 H 114 H 130 H Calcium Ferritin Total Bilirubin Alkaline Phosphatase Lactate Dehydrogenase Total Creatine Kinase CK-MB (CK-2) Rel Index Troponin T C-Reactive Protein Total Protein Albumin Prealbumin LDL Cholesterol Direct HDL Cholesterol Arterial Blood Glucose Arterial Blood Ionized Calcium Urine WBC (Auto) 03/30/20 03/30/20 03/30/20 11:38 14:47 14:47 WBC 19.9 H RBC Hgb 10.9 L Hct 34.4 L MCV MCH 27 L RDW 16.5 H Plt Count 441 H Lymph % (Auto) 6.4 L [place] % (Auto) Lymph # (Auto) [place] # (Auto) 1.4 H Seg Neutrophils % 86.1 H Seg Neuts % (Manual) Lymphocytes % (Manual) Monocytes % (Manual) Basophils % (Manual) Seg Neutrophils # 17.1 H Seg Neutrophils # Man Lymphocytes # (Manual) Monocytes # (Manual) Eosinophils # (Manual) Basophils # (Manual) PT INR D-Dimer ABG pH POC ABG pCO2 POC ABG pO2 ABG pO2 ABG HCO3 ABG O2 Saturation ABG Base Excess ABG Hemoglobin ABG Oxyhemoglobin ABG Potassium ABG Glucose Oxyhemoglobin Carboxyhemoglobin Sodium 133 L Potassium Chloride 94.6 L Carbon Dioxide 33 H BUN Creatinine < 0.2 L Glucose 194 H POC Glucose 139 H Calcium Ferritin Total Bilirubin Alkaline Phosphatase Lactate Dehydrogenase Total Creatine Kinase CK-MB (CK-2) Rel Index Troponin T C-Reactive Protein Total Protein Albumin 2.8 L Prealbumin LDL Cholesterol Direct HDL Cholesterol Arterial Blood Glucose Arterial Blood Ionized Calcium Urine WBC (Auto) 03/30/20 03/31/20 03/31/20 17:07 05:02 15:21 WBC RBC Hgb Hct MCV MCH RDW Plt Count Lymph % (Auto) [place] % (Auto) Lymph # (Auto) [place] # (Auto) Seg Neutrophils % Seg Neuts % (Manual) Lymphocytes % (Manual) Monocytes % (Manual) Basophils % (Manual) Seg Neutrophils # Seg Neutrophils # Man Lymphocytes # (Manual) Monocytes # (Manual) Eosinophils # (Manual) Basophils # (Manual) PT INR D-Dimer ABG pH POC ABG pCO2 POC ABG pO2 ABG pO2 ABG HCO3 ABG O2 Saturation ABG Base Excess ABG Hemoglobin ABG Oxyhemoglobin ABG Potassium ABG Glucose Oxyhemoglobin Carboxyhemoglobin Sodium Potassium Chloride Carbon Dioxide BUN Creatinine Glucose POC Glucose 163 H 108 H 110 H Calcium Ferritin Total Bilirubin Alkaline Phosphatase Lactate Dehydrogenase Total Creatine Kinase CK-MB (CK-2) Rel Index Troponin T C-Reactive Protein Total Protein Albumin Prealbumin LDL Cholesterol Direct HDL Cholesterol Arterial Blood Glucose Arterial Blood Ionized Calcium Urine WBC (Auto) 03/31/20 03/31/20 04/01/20 17:58 23:19 05:09 WBC RBC Hgb Hct MCV MCH RDW Plt Count Lymph % (Auto) [place] % (Auto) Lymph # (Auto) [place] # (Auto) Seg Neutrophils % Seg Neuts % (Manual) Lymphocytes % (Manual) Monocytes % (Manual) Basophils % (Manual) Seg Neutrophils # Seg Neutrophils # Man Lymphocytes # (Manual) Monocytes # (Manual) Eosinophils # (Manual) Basophils # (Manual) PT INR D-Dimer ABG pH POC ABG pCO2 POC ABG pO2 ABG pO2 ABG HCO3 ABG O2 Saturation ABG Base Excess ABG Hemoglobin ABG Oxyhemoglobin ABG Potassium ABG Glucose Oxyhemoglobin Carboxyhemoglobin Sodium Potassium Chloride Carbon Dioxide BUN Creatinine Glucose POC Glucose 110 H 131 H 124 H Calcium Ferritin Total Bilirubin Alkaline Phosphatase Lactate Dehydrogenase Total Creatine Kinase CK-MB (CK-2) Rel Index Troponin T C-Reactive Protein Total Protein Albumin Prealbumin LDL Cholesterol Direct HDL Cholesterol Arterial Blood Glucose Arterial Blood Ionized Calcium Urine WBC (Auto) 04/01/20 04/01/20 04/01/20 11:50 17:01 23:21 WBC RBC Hgb Hct MCV MCH RDW Plt Count Lymph % (Auto) [place] % (Auto) Lymph # (Auto) [place] # (Auto) Seg Neutrophils % Seg Neuts % (Manual) Lymphocytes % (Manual) Monocytes % (Manual) Basophils % (Manual) Seg Neutrophils # Seg Neutrophils # Man Lymphocytes # (Manual) Monocytes # (Manual) Eosinophils # (Manual) Basophils # (Manual) PT INR D-Dimer ABG pH POC ABG pCO2 POC ABG pO2 ABG pO2 ABG HCO3 ABG O2 Saturation ABG Base Excess ABG Hemoglobin ABG Oxyhemoglobin ABG Potassium ABG Glucose Oxyhemoglobin Carboxyhemoglobin Sodium Potassium Chloride Carbon Dioxide BUN Creatinine Glucose POC Glucose 136 H 115 H 124 H Calcium Ferritin Total Bilirubin Alkaline Phosphatase Lactate Dehydrogenase Total Creatine Kinase CK-MB (CK-2) Rel Index Troponin T C-Reactive Protein Total Protein Albumin Prealbumin LDL Cholesterol Direct HDL Cholesterol Arterial Blood Glucose Arterial Blood Ionized Calcium Urine WBC (Auto) 04/02/20 04/02/20 04/02/20 05:27 11:58 17:58 WBC RBC Hgb Hct MCV MCH RDW Plt Count Lymph % (Auto) [place] % (Auto) Lymph # (Auto) [place] # (Auto) Seg Neutrophils % Seg Neuts % (Manual) Lymphocytes % (Manual) Monocytes % (Manual) Basophils % (Manual) Seg Neutrophils # Seg Neutrophils # Man Lymphocytes # (Manual) Monocytes # (Manual) Eosinophils # (Manual) Basophils # (Manual) PT INR D-Dimer ABG pH POC ABG pCO2 POC ABG pO2 ABG pO2 ABG HCO3 ABG O2 Saturation ABG Base Excess ABG Hemoglobin ABG Oxyhemoglobin ABG Potassium ABG Glucose Oxyhemoglobin Carboxyhemoglobin Sodium Potassium Chloride Carbon Dioxide BUN Creatinine Glucose POC Glucose 117 H 133 H 122 H Calcium Ferritin Total Bilirubin Alkaline Phosphatase Lactate Dehydrogenase Total Creatine Kinase CK-MB (CK-2) Rel Index Troponin T C-Reactive Protein Total Protein Albumin Prealbumin LDL Cholesterol Direct HDL Cholesterol Arterial Blood Glucose Arterial Blood Ionized Calcium Urine WBC (Auto) 04/02/20 04/03/20 04/03/20 23:12 05:11 11:11 WBC RBC Hgb Hct MCV MCH RDW Plt Count Lymph % (Auto) [place] % (Auto) Lymph # (Auto) [place] # (Auto) Seg Neutrophils % Seg Neuts % (Manual) Lymphocytes % (Manual) Monocytes % (Manual) Basophils % (Manual) Seg Neutrophils # Seg Neutrophils # Man Lymphocytes # (Manual) Monocytes # (Manual) Eosinophils # (Manual) Basophils # (Manual) PT INR D-Dimer ABG pH POC ABG pCO2 POC ABG pO2 ABG pO2 ABG HCO3 ABG O2 Saturation ABG Base Excess ABG Hemoglobin ABG Oxyhemoglobin ABG Potassium ABG Glucose Oxyhemoglobin Carboxyhemoglobin Sodium Potassium Chloride Carbon Dioxide BUN Creatinine Glucose POC Glucose 130 H 139 H 136 H Calcium Ferritin Total Bilirubin Alkaline Phosphatase Lactate Dehydrogenase Total Creatine Kinase CK-MB (CK-2) Rel Index Troponin T C-Reactive Protein Total Protein Albumin Prealbumin LDL Cholesterol Direct HDL Cholesterol Arterial Blood Glucose Arterial Blood Ionized Calcium Urine WBC (Auto) 04/03/20 04/03/20 04/04/20 16:51 23:25 05:29 WBC RBC Hgb Hct MCV MCH RDW Plt Count Lymph % (Auto) [place] % (Auto) Lymph # (Auto) [place] # (Auto) Seg Neutrophils % Seg Neuts % (Manual) Lymphocytes % (Manual) Monocytes % (Manual) Basophils % (Manual) Seg Neutrophils # Seg Neutrophils # Man Lymphocytes # (Manual) Monocytes # (Manual) Eosinophils # (Manual) Basophils # (Manual) PT INR D-Dimer ABG pH POC ABG pCO2 POC ABG pO2 ABG pO2 ABG HCO3 ABG O2 Saturation ABG Base Excess ABG Hemoglobin ABG Oxyhemoglobin ABG Potassium ABG Glucose Oxyhemoglobin Carboxyhemoglobin Sodium Potassium Chloride Carbon Dioxide BUN Creatinine Glucose POC Glucose 118 H 111 H 126 H Calcium Ferritin Total Bilirubin Alkaline Phosphatase Lactate Dehydrogenase Total Creatine Kinase CK-MB (CK-2) Rel Index Troponin T C-Reactive Protein Total Protein Albumin Prealbumin LDL Cholesterol Direct HDL Cholesterol Arterial Blood Glucose Arterial Blood Ionized Calcium Urine WBC (Auto) 04/04/20 04/04/20 04/04/20 11:47 17:41 23:05 WBC RBC Hgb Hct MCV MCH RDW Plt Count Lymph % (Auto) [place] % (Auto) Lymph # (Auto) [place] # (Auto) Seg Neutrophils % Seg Neuts % (Manual) Lymphocytes % (Manual) Monocytes % (Manual) Basophils % (Manual) Seg Neutrophils # Seg Neutrophils # Man Lymphocytes # (Manual) Monocytes # (Manual) Eosinophils # (Manual) Basophils # (Manual) PT INR D-Dimer ABG pH POC ABG pCO2 POC ABG pO2 ABG pO2 ABG HCO3 ABG O2 Saturation ABG Base Excess ABG Hemoglobin ABG Oxyhemoglobin ABG Potassium ABG Glucose Oxyhemoglobin Carboxyhemoglobin Sodium Potassium Chloride Carbon Dioxide BUN Creatinine Glucose POC Glucose 123 H 120 H 119 H Calcium Ferritin Total Bilirubin Alkaline Phosphatase Lactate Dehydrogenase Total Creatine Kinase CK-MB (CK-2) Rel Index Troponin T C-Reactive Protein Total Protein Albumin Prealbumin LDL Cholesterol Direct HDL Cholesterol Arterial Blood Glucose Arterial Blood Ionized Calcium Urine WBC (Auto) 04/05/20 04/05/20 04/05/20 05:14 12:16 18:48 WBC RBC Hgb Hct MCV MCH RDW Plt Count Lymph % (Auto) [place] % (Auto) Lymph # (Auto) [place] # (Auto) Seg Neutrophils % Seg Neuts % (Manual) Lymphocytes % (Manual) Monocytes % (Manual) Basophils % (Manual) Seg Neutrophils # Seg Neutrophils # Man Lymphocytes # (Manual) Monocytes # (Manual) Eosinophils # (Manual) Basophils # (Manual) PT INR D-Dimer ABG pH POC ABG pCO2 POC ABG pO2 ABG pO2 ABG HCO3 ABG O2 Saturation ABG Base Excess ABG Hemoglobin ABG Oxyhemoglobin ABG Potassium ABG Glucose Oxyhemoglobin Carboxyhemoglobin Sodium Potassium Chloride Carbon Dioxide BUN Creatinine Glucose POC Glucose 123 H 148 H 106 H Calcium Ferritin Total Bilirubin Alkaline Phosphatase Lactate Dehydrogenase Total Creatine Kinase CK-MB (CK-2) Rel Index Troponin T C-Reactive Protein Total Protein Albumin Prealbumin LDL Cholesterol Direct HDL Cholesterol Arterial Blood Glucose Arterial Blood Ionized Calcium Urine WBC (Auto) 04/06/20 04/06/20 04/06/20 00:47 03:26 08:24 WBC RBC Hgb Hct MCV MCH RDW Plt Count Lymph % (Auto) [place] % (Auto) Lymph # (Auto) [place] # (Auto) Seg Neutrophils % Seg Neuts % (Manual) Lymphocytes % (Manual) Monocytes % (Manual) Basophils % (Manual) Seg Neutrophils # Seg Neutrophils # Man Lymphocytes # (Manual) Monocytes # (Manual) Eosinophils # (Manual) Basophils # (Manual) PT INR D-Dimer ABG pH POC ABG pCO2 POC ABG pO2 ABG pO2 ABG HCO3 ABG O2 Saturation ABG Base Excess ABG Hemoglobin ABG Oxyhemoglobin ABG Potassium ABG Glucose Oxyhemoglobin Carboxyhemoglobin Sodium Potassium Chloride Carbon Dioxide BUN Creatinine Glucose POC Glucose 129 H 134 H 131 H Calcium Ferritin Total Bilirubin Alkaline Phosphatase Lactate Dehydrogenase Total Creatine Kinase CK-MB (CK-2) Rel Index Troponin T C-Reactive Protein Total Protein Albumin Prealbumin LDL Cholesterol Direct HDL Cholesterol Arterial Blood Glucose Arterial Blood Ionized Calcium Urine WBC (Auto) 04/06/20 04/06/20 04/06/20 11:16 16:27 23:01 WBC RBC Hgb Hct MCV MCH RDW Plt Count Lymph % (Auto) [place] % (Auto) Lymph # (Auto) [place] # (Auto) Seg Neutrophils % Seg Neuts % (Manual) Lymphocytes % (Manual) Monocytes % (Manual) Basophils % (Manual) Seg Neutrophils # Seg Neutrophils # Man Lymphocytes # (Manual) Monocytes # (Manual) Eosinophils # (Manual) Basophils # (Manual) PT INR D-Dimer ABG pH POC ABG pCO2 POC ABG pO2 ABG pO2 ABG HCO3 ABG O2 Saturation ABG Base Excess ABG Hemoglobin ABG Oxyhemoglobin ABG Potassium ABG Glucose Oxyhemoglobin Carboxyhemoglobin Sodium Potassium Chloride Carbon Dioxide BUN Creatinine Glucose POC Glucose 131 H 107 H 125 H Calcium Ferritin Total Bilirubin Alkaline Phosphatase Lactate Dehydrogenase Total Creatine Kinase CK-MB (CK-2) Rel Index Troponin T C-Reactive Protein Total Protein Albumin Prealbumin LDL Cholesterol Direct HDL Cholesterol Arterial Blood Glucose Arterial Blood Ionized Calcium Urine WBC (Auto) 04/07/20 04/07/20 04/07/20 05:24 12:41 17:40 WBC RBC Hgb Hct MCV MCH RDW Plt Count Lymph % (Auto) [place] % (Auto) Lymph # (Auto) [place] # (Auto) Seg Neutrophils % Seg Neuts % (Manual) Lymphocytes % (Manual) Monocytes % (Manual) Basophils % (Manual) Seg Neutrophils # Seg Neutrophils # Man Lymphocytes # (Manual) Monocytes # (Manual) Eosinophils # (Manual) Basophils # (Manual) PT INR D-Dimer ABG pH POC ABG pCO2 POC ABG pO2 ABG pO2 ABG HCO3 ABG O2 Saturation ABG Base Excess ABG Hemoglobin ABG Oxyhemoglobin ABG Potassium ABG Glucose Oxyhemoglobin Carboxyhemoglobin Sodium Potassium Chloride Carbon Dioxide BUN Creatinine Glucose POC Glucose 125 H 145 H 123 H Calcium Ferritin Total Bilirubin Alkaline Phosphatase Lactate Dehydrogenase Total Creatine Kinase CK-MB (CK-2) Rel Index Troponin T C-Reactive Protein Total Protein Albumin Prealbumin LDL Cholesterol Direct HDL Cholesterol Arterial Blood Glucose Arterial Blood Ionized Calcium Urine WBC (Auto) 04/07/20 04/08/20 04/08/20 23:22 05:40 11:29 WBC RBC Hgb Hct MCV MCH RDW Plt Count Lymph % (Auto) [place] % (Auto) Lymph # (Auto) [place] # (Auto) Seg Neutrophils % Seg Neuts % (Manual) Lymphocytes % (Manual) Monocytes % (Manual) Basophils % (Manual) Seg Neutrophils # Seg Neutrophils # Man Lymphocytes # (Manual) Monocytes # (Manual) Eosinophils # (Manual) Basophils # (Manual) PT INR D-Dimer ABG pH POC ABG pCO2 POC ABG pO2 ABG pO2 ABG HCO3 ABG O2 Saturation ABG Base Excess ABG Hemoglobin ABG Oxyhemoglobin ABG Potassium ABG Glucose Oxyhemoglobin Carboxyhemoglobin Sodium Potassium Chloride Carbon Dioxide BUN Creatinine Glucose POC Glucose 133 H 125 H 116 H Calcium Ferritin Total Bilirubin Alkaline Phosphatase Lactate Dehydrogenase Total Creatine Kinase CK-MB (CK-2) Rel Index Troponin T C-Reactive Protein Total Protein Albumin Prealbumin LDL Cholesterol Direct HDL Cholesterol Arterial Blood Glucose Arterial Blood Ionized Calcium Urine WBC (Auto) 04/08/20 04/09/20 04/09/20 17:43 05:47 12:22 WBC RBC Hgb Hct MCV MCH RDW Plt Count Lymph % (Auto) [place] % (Auto) Lymph # (Auto) [place] # (Auto) Seg Neutrophils % Seg Neuts % (Manual) Lymphocytes % (Manual) Monocytes % (Manual) Basophils % (Manual) Seg Neutrophils # Seg Neutrophils # Man Lymphocytes # (Manual) Monocytes # (Manual) Eosinophils # (Manual) Basophils # (Manual) PT INR D-Dimer ABG pH POC ABG pCO2 POC ABG pO2 ABG pO2 ABG HCO3 ABG O2 Saturation ABG Base Excess ABG Hemoglobin ABG Oxyhemoglobin ABG Potassium ABG Glucose Oxyhemoglobin Carboxyhemoglobin Sodium Potassium Chloride Carbon Dioxide BUN Creatinine Glucose POC Glucose 123 H 108 H 116 H Calcium Ferritin Total Bilirubin Alkaline Phosphatase Lactate Dehydrogenase Total Creatine Kinase CK-MB (CK-2) Rel Index Troponin T C-Reactive Protein Total Protein Albumin Prealbumin LDL Cholesterol Direct HDL Cholesterol Arterial Blood Glucose Arterial Blood Ionized Calcium Urine WBC (Auto) 04/09/20 04/09/20 04/10/20 17:24 23:52 06:10 WBC RBC Hgb Hct MCV MCH RDW Plt Count Lymph % (Auto) [place] % (Auto) Lymph # (Auto) [place] # (Auto) Seg Neutrophils % Seg Neuts % (Manual) Lymphocytes % (Manual) Monocytes % (Manual) Basophils % (Manual) Seg Neutrophils # Seg Neutrophils # Man Lymphocytes # (Manual) Monocytes # (Manual) Eosinophils # (Manual) Basophils # (Manual) PT INR D-Dimer ABG pH POC ABG pCO2 POC ABG pO2 ABG pO2 ABG HCO3 ABG O2 Saturation ABG Base Excess ABG Hemoglobin ABG Oxyhemoglobin ABG Potassium ABG Glucose Oxyhemoglobin Carboxyhemoglobin Sodium Potassium Chloride Carbon Dioxide BUN Creatinine Glucose POC Glucose 108 H 126 H 122 H Calcium Ferritin Total Bilirubin Alkaline Phosphatase Lactate Dehydrogenase Total Creatine Kinase CK-MB (CK-2) Rel Index Troponin T C-Reactive Protein Total Protein Albumin Prealbumin LDL Cholesterol Direct HDL Cholesterol Arterial Blood Glucose Arterial Blood Ionized Calcium Urine WBC (Auto) 04/10/20 04/10/20 04/10/20 11:27 18:11 23:24 WBC RBC Hgb Hct MCV MCH RDW Plt Count Lymph % (Auto) [place] % (Auto) Lymph # (Auto) [place] # (Auto) Seg Neutrophils % Seg Neuts % (Manual) Lymphocytes % (Manual) Monocytes % (Manual) Basophils % (Manual) Seg Neutrophils # Seg Neutrophils # Man Lymphocytes # (Manual) Monocytes # (Manual) Eosinophils # (Manual) Basophils # (Manual) PT INR D-Dimer ABG pH POC ABG pCO2 POC ABG pO2 ABG pO2 ABG HCO3 ABG O2 Saturation ABG Base Excess ABG Hemoglobin ABG Oxyhemoglobin ABG Potassium ABG Glucose Oxyhemoglobin Carboxyhemoglobin Sodium Potassium Chloride Carbon Dioxide BUN Creatinine Glucose POC Glucose 129 H 125 H 107 H Calcium Ferritin Total Bilirubin Alkaline Phosphatase Lactate Dehydrogenase Total Creatine Kinase CK-MB (CK-2) Rel Index Troponin T C-Reactive Protein Total Protein Albumin Prealbumin LDL Cholesterol Direct HDL Cholesterol Arterial Blood Glucose Arterial Blood Ionized Calcium Urine WBC (Auto) 04/11/20 04/11/20 04/11/20 05:28 11:46 23:49 WBC RBC Hgb Hct MCV MCH RDW Plt Count Lymph % (Auto) [place] % (Auto) Lymph # (Auto) [place] # (Auto) Seg Neutrophils % Seg Neuts % (Manual) Lymphocytes % (Manual) Monocytes % (Manual) Basophils % (Manual) Seg Neutrophils # Seg Neutrophils # Man Lymphocytes # (Manual) Monocytes # (Manual) Eosinophils # (Manual) Basophils # (Manual) PT INR D-Dimer ABG pH POC ABG pCO2 POC ABG pO2 ABG pO2 ABG HCO3 ABG O2 Saturation ABG Base Excess ABG Hemoglobin ABG Oxyhemoglobin ABG Potassium ABG Glucose Oxyhemoglobin Carboxyhemoglobin Sodium Potassium Chloride Carbon Dioxide BUN Creatinine Glucose POC Glucose 122 H 122 H 116 H Calcium Ferritin Total Bilirubin Alkaline Phosphatase Lactate Dehydrogenase Total Creatine Kinase CK-MB (CK-2) Rel Index Troponin T C-Reactive Protein Total Protein Albumin Prealbumin LDL Cholesterol Direct HDL Cholesterol Arterial Blood Glucose Arterial Blood Ionized Calcium Urine WBC (Auto) 04/12/20 04/12/20 04/12/20 09:07 09:07 11:39 WBC 13.1 H RBC 3.59 L Hgb 9.5 L Hct 29.8 L MCV 83 L MCH 26 L RDW 16.6 H Plt Count 591 H Lymph % (Auto) [place] % (Auto) Lymph # (Auto) [place] # (Auto) Seg Neutrophils % Seg Neuts % (Manual) 86.0 H Lymphocytes % (Manual) 7.0 L Monocytes % (Manual) Basophils % (Manual) Seg Neutrophils # Seg Neutrophils # Man 11.3 H Lymphocytes # (Manual) 0.9 L Monocytes # (Manual) Eosinophils # (Manual) Basophils # (Manual) PT INR D-Dimer ABG pH POC ABG pCO2 POC ABG pO2 ABG pO2 ABG HCO3 ABG O2 Saturation ABG Base Excess ABG Hemoglobin ABG Oxyhemoglobin ABG Potassium ABG Glucose Oxyhemoglobin Carboxyhemoglobin Sodium Potassium Chloride Carbon Dioxide 36 H BUN Creatinine < 0.2 L Glucose 132 H POC Glucose 136 H Calcium Ferritin Total Bilirubin Alkaline Phosphatase Lactate Dehydrogenase Total Creatine Kinase CK-MB (CK-2) Rel Index Troponin T C-Reactive Protein Total Protein Albumin 2.7 L Prealbumin LDL Cholesterol Direct HDL Cholesterol Arterial Blood Glucose Arterial Blood Ionized Calcium Urine WBC (Auto) 04/12/20 04/12/20 04/13/20 18:13 23:07 05:45 WBC RBC Hgb Hct MCV MCH RDW Plt Count Lymph % (Auto) [place] % (Auto) Lymph # (Auto) [place] # (Auto) Seg Neutrophils % Seg Neuts % (Manual) Lymphocytes % (Manual) Monocytes % (Manual) Basophils % (Manual) Seg Neutrophils # Seg Neutrophils # Man Lymphocytes # (Manual) Monocytes # (Manual) Eosinophils # (Manual) Basophils # (Manual) PT INR D-Dimer ABG pH POC ABG pCO2 POC ABG pO2 ABG pO2 ABG HCO3 ABG O2 Saturation ABG Base Excess ABG Hemoglobin ABG Oxyhemoglobin ABG Potassium ABG Glucose Oxyhemoglobin Carboxyhemoglobin Sodium Potassium Chloride Carbon Dioxide BUN Creatinine Glucose POC Glucose 107 H 106 H 125 H Calcium Ferritin Total Bilirubin Alkaline Phosphatase Lactate Dehydrogenase Total Creatine Kinase CK-MB (CK-2) Rel Index Troponin T C-Reactive Protein Total Protein Albumin Prealbumin LDL Cholesterol Direct HDL Cholesterol Arterial Blood Glucose Arterial Blood Ionized Calcium Urine WBC (Auto) 04/13/20 04/13/20 04/13/20 11:18 17:56 23:33 WBC RBC Hgb Hct MCV MCH RDW Plt Count Lymph % (Auto) [place] % (Auto) Lymph # (Auto) [place] # (Auto) Seg Neutrophils % Seg Neuts % (Manual) Lymphocytes % (Manual) Monocytes % (Manual) Basophils % (Manual) Seg Neutrophils # Seg Neutrophils # Man Lymphocytes # (Manual) Monocytes # (Manual) Eosinophils # (Manual) Basophils # (Manual) PT INR D-Dimer ABG pH POC ABG pCO2 POC ABG pO2 ABG pO2 ABG HCO3 ABG O2 Saturation ABG Base Excess ABG Hemoglobin ABG Oxyhemoglobin ABG Potassium ABG Glucose Oxyhemoglobin Carboxyhemoglobin Sodium Potassium Chloride Carbon Dioxide BUN Creatinine Glucose POC Glucose 133 H 110 H 114 H Calcium Ferritin Total Bilirubin Alkaline Phosphatase Lactate Dehydrogenase Total Creatine Kinase CK-MB (CK-2) Rel Index Troponin T C-Reactive Protein Total Protein Albumin Prealbumin LDL Cholesterol Direct HDL Cholesterol Arterial Blood Glucose Arterial Blood Ionized Calcium Urine WBC (Auto) 04/14/20 04/14/20 04/14/20 05:58 11:45 17:48 WBC RBC Hgb Hct MCV MCH RDW Plt Count Lymph % (Auto) [place] % (Auto) Lymph # (Auto) [place] # (Auto) Seg Neutrophils % Seg Neuts % (Manual) Lymphocytes % (Manual) Monocytes % (Manual) Basophils % (Manual) Seg Neutrophils # Seg Neutrophils # Man Lymphocytes # (Manual) Monocytes # (Manual) Eosinophils # (Manual) Basophils # (Manual) PT INR D-Dimer ABG pH POC ABG pCO2 POC ABG pO2 ABG pO2 ABG HCO3 ABG O2 Saturation ABG Base Excess ABG Hemoglobin ABG Oxyhemoglobin ABG Potassium ABG Glucose Oxyhemoglobin Carboxyhemoglobin Sodium Potassium Chloride Carbon Dioxide BUN Creatinine Glucose POC Glucose 115 H 122 H 124 H Calcium Ferritin Total Bilirubin Alkaline Phosphatase Lactate Dehydrogenase Total Creatine Kinase CK-MB (CK-2) Rel Index Troponin T C-Reactive Protein Total Protein Albumin Prealbumin LDL Cholesterol Direct HDL Cholesterol Arterial Blood Glucose Arterial Blood Ionized Calcium Urine WBC (Auto) 04/15/20 04/15/20 04/15/20 00:11 05:38 11:31 WBC RBC Hgb Hct MCV MCH RDW Plt Count Lymph % (Auto) [place] % (Auto) Lymph # (Auto) [place] # (Auto) Seg Neutrophils % Seg Neuts % (Manual) Lymphocytes % (Manual) Monocytes % (Manual) Basophils % (Manual) Seg Neutrophils # Seg Neutrophils # Man Lymphocytes # (Manual) Monocytes # (Manual) Eosinophils # (Manual) Basophils # (Manual) PT INR D-Dimer ABG pH POC ABG pCO2 POC ABG pO2 ABG pO2 ABG HCO3 ABG O2 Saturation ABG Base Excess ABG Hemoglobin ABG Oxyhemoglobin ABG Potassium ABG Glucose Oxyhemoglobin Carboxyhemoglobin Sodium Potassium Chloride Carbon Dioxide BUN Creatinine Glucose POC Glucose 120 H 109 H 123 H Calcium Ferritin Total Bilirubin Alkaline Phosphatase Lactate Dehydrogenase Total Creatine Kinase CK-MB (CK-2) Rel Index Troponin T C-Reactive Protein Total Protein Albumin Prealbumin LDL Cholesterol Direct HDL Cholesterol Arterial Blood Glucose Arterial Blood Ionized Calcium Urine WBC (Auto) 04/15/20 04/16/20 04/16/20 17:35 06:00 11:29 WBC RBC Hgb Hct MCV MCH RDW Plt Count Lymph % (Auto) [place] % (Auto) Lymph # (Auto) [place] # (Auto) Seg Neutrophils % Seg Neuts % (Manual) Lymphocytes % (Manual) Monocytes % (Manual) Basophils % (Manual) Seg Neutrophils # Seg Neutrophils # Man Lymphocytes # (Manual) Monocytes # (Manual) Eosinophils # (Manual) Basophils # (Manual) PT INR D-Dimer ABG pH POC ABG pCO2 POC ABG pO2 ABG pO2 ABG HCO3 ABG O2 Saturation ABG Base Excess ABG Hemoglobin ABG Oxyhemoglobin ABG Potassium ABG Glucose Oxyhemoglobin Carboxyhemoglobin Sodium Potassium Chloride Carbon Dioxide BUN Creatinine Glucose POC Glucose 111 H 142 H 108 H Calcium Ferritin Total Bilirubin Alkaline Phosphatase Lactate Dehydrogenase Total Creatine Kinase CK-MB (CK-2) Rel Index Troponin T C-Reactive Protein Total Protein Albumin Prealbumin LDL Cholesterol Direct HDL Cholesterol Arterial Blood Glucose Arterial Blood Ionized Calcium Urine WBC (Auto) 04/17/20 04/17/20 04/17/20 05:09 06:53 06:53 WBC 14.2 H RBC Hgb 10.1 L Hct 31.5 L MCV MCH 27 L RDW 17.2 H Plt Count 643 H Lymph % (Auto) [place] % (Auto) Lymph # (Auto) [place] # (Auto) Seg Neutrophils % Seg Neuts % (Manual) Lymphocytes % (Manual) Monocytes % (Manual) Basophils % (Manual) Seg Neutrophils # Seg Neutrophils # Man Lymphocytes # (Manual) Monocytes # (Manual) Eosinophils # (Manual) Basophils # (Manual) PT INR D-Dimer ABG pH POC ABG pCO2 POC ABG pO2 ABG pO2 ABG HCO3 ABG O2 Saturation ABG Base Excess ABG Hemoglobin ABG Oxyhemoglobin ABG Potassium ABG Glucose Oxyhemoglobin Carboxyhemoglobin Sodium Potassium Chloride 97.7 L Carbon Dioxide 38 H BUN Creatinine < 0.2 L Glucose 126 H POC Glucose 131 H Calcium Ferritin Total Bilirubin Alkaline Phosphatase Lactate Dehydrogenase Total Creatine Kinase CK-MB (CK-2) Rel Index Troponin T C-Reactive Protein Total Protein Albumin Prealbumin LDL Cholesterol Direct HDL Cholesterol Arterial Blood Glucose Arterial Blood Ionized Calcium Urine WBC (Auto) 04/17/20 04/18/20 04/18/20 11:21 00:23 04:01 WBC 15.3 H RBC Hgb 10.1 L Hct 31.9 L MCV 82 L MCH 26 L RDW 17.2 H Plt Count 665 H Lymph % (Auto) 12.9 L [place] % (Auto) Lymph # (Auto) [place] # (Auto) 1.1 H Seg Neutrophils % 78.0 H Seg Neuts % (Manual) Lymphocytes % (Manual) Monocytes % (Manual) Basophils % (Manual) Seg Neutrophils # 11.9 H Seg Neutrophils # Man Lymphocytes # (Manual) Monocytes # (Manual) Eosinophils # (Manual) Basophils # (Manual) PT INR D-Dimer ABG pH POC ABG pCO2 POC ABG pO2 ABG pO2 ABG HCO3 ABG O2 Saturation ABG Base Excess ABG Hemoglobin ABG Oxyhemoglobin ABG Potassium ABG Glucose Oxyhemoglobin Carboxyhemoglobin Sodium Potassium Chloride Carbon Dioxide BUN Creatinine Glucose POC Glucose 140 H 125 H Calcium Ferritin Total Bilirubin Alkaline Phosphatase Lactate Dehydrogenase Total Creatine Kinase CK-MB (CK-2) Rel Index Troponin T C-Reactive Protein Total Protein Albumin Prealbumin LDL Cholesterol Direct HDL Cholesterol Arterial Blood Glucose Arterial Blood Ionized Calcium Urine WBC (Auto) 04/18/20 04/18/20 04/18/20 04:01 11:29 17:30 WBC RBC Hgb Hct MCV MCH RDW Plt Count Lymph % (Auto) [place] % (Auto) Lymph # (Auto) [place] # (Auto) Seg Neutrophils % Seg Neuts % (Manual) Lymphocytes % (Manual) Monocytes % (Manual) Basophils % (Manual) Seg Neutrophils # Seg Neutrophils # Man Lymphocytes # (Manual) Monocytes # (Manual) Eosinophils # (Manual) Basophils # (Manual) PT INR D-Dimer ABG pH POC ABG pCO2 POC ABG pO2 ABG pO2 ABG HCO3 ABG O2 Saturation ABG Base Excess ABG Hemoglobin ABG Oxyhemoglobin ABG Potassium ABG Glucose Oxyhemoglobin Carboxyhemoglobin Sodium Potassium Chloride 97.0 L Carbon Dioxide 38 H BUN Creatinine < 0.2 L Glucose 117 H POC Glucose 136 H 107 H Calcium Ferritin Total Bilirubin Alkaline Phosphatase Lactate Dehydrogenase Total Creatine Kinase CK-MB (CK-2) Rel Index Troponin T C-Reactive Protein Total Protein Albumin Prealbumin LDL Cholesterol Direct HDL Cholesterol Arterial Blood Glucose Arterial Blood Ionized Calcium Urine WBC (Auto) 04/18/20 04/19/20 04/19/20 23:19 06:51 06:51 WBC 12.2 H RBC Hgb 9.8 L Hct 31.1 L MCV 82 L MCH 26 L RDW 17.2 H Plt Count 549 H Lymph % (Auto) 6.5 L [place] % (Auto) Lymph # (Auto) 0.8 L [place] # (Auto) Seg Neutrophils % 86.7 H Seg Neuts % (Manual) Lymphocytes % (Manual) Monocytes % (Manual) Basophils % (Manual) Seg Neutrophils # 10.6 H Seg Neutrophils # Man Lymphocytes # (Manual) Monocytes # (Manual) Eosinophils # (Manual) Basophils # (Manual) PT INR D-Dimer ABG pH POC ABG pCO2 POC ABG pO2 ABG pO2 ABG HCO3 ABG O2 Saturation ABG Base Excess ABG Hemoglobin ABG Oxyhemoglobin ABG Potassium ABG Glucose Oxyhemoglobin Carboxyhemoglobin Sodium Potassium Chloride 97.8 L Carbon Dioxide 38 H BUN Creatinine < 0.2 L Glucose 123 H POC Glucose 127 H Calcium Ferritin Total Bilirubin Alkaline Phosphatase Lactate Dehydrogenase Total Creatine Kinase CK-MB (CK-2) Rel Index Troponin T C-Reactive Protein Total Protein Albumin Prealbumin LDL Cholesterol Direct HDL Cholesterol Arterial Blood Glucose Arterial Blood Ionized Calcium Urine WBC (Auto) 04/19/20 04/19/20 04/20/20 13:41 18:33 05:56 WBC RBC Hgb Hct MCV MCH RDW Plt Count Lymph % (Auto) [place] % (Auto) Lymph # (Auto) [place] # (Auto) Seg Neutrophils % Seg Neuts % (Manual) Lymphocytes % (Manual) Monocytes % (Manual) Basophils % (Manual) Seg Neutrophils # Seg Neutrophils # Man Lymphocytes # (Manual) Monocytes # (Manual) Eosinophils # (Manual) Basophils # (Manual) PT INR D-Dimer ABG pH POC ABG pCO2 POC ABG pO2 ABG pO2 ABG HCO3 ABG O2 Saturation ABG Base Excess ABG Hemoglobin ABG Oxyhemoglobin ABG Potassium ABG Glucose Oxyhemoglobin Carboxyhemoglobin Sodium Potassium Chloride Carbon Dioxide BUN Creatinine Glucose POC Glucose 116 H 124 H 130 H Calcium Ferritin Total Bilirubin Alkaline Phosphatase Lactate Dehydrogenase Total Creatine Kinase CK-MB (CK-2) Rel Index Troponin T C-Reactive Protein Total Protein Albumin Prealbumin LDL Cholesterol Direct HDL Cholesterol Arterial Blood Glucose Arterial Blood Ionized Calcium Urine WBC (Auto) 04/20/20 04/20/20 04/20/20 06:28 06:28 11:46 WBC RBC Hgb 10.2 L Hct 31.5 L MCV 82 L MCH 27 L RDW 17.1 H Plt Count 546 H Lymph % (Auto) 10.0 L [place] % (Auto) 9.8 H Lymph # (Auto) 1.1 L [place] # (Auto) 1.1 H Seg Neutrophils % 78.4 H Seg Neuts % (Manual) Lymphocytes % (Manual) Monocytes % (Manual) Basophils % (Manual) Seg Neutrophils # 8.5 H Seg Neutrophils # Man Lymphocytes # (Manual) Monocytes # (Manual) Eosinophils # (Manual) Basophils # (Manual) PT INR D-Dimer ABG pH POC ABG pCO2 POC ABG pO2 ABG pO2 ABG HCO3 ABG O2 Saturation ABG Base Excess ABG Hemoglobin ABG Oxyhemoglobin ABG Potassium ABG Glucose Oxyhemoglobin Carboxyhemoglobin Sodium Potassium Chloride 97.0 L Carbon Dioxide 38 H BUN Creatinine < 0.2 L Glucose 138 H POC Glucose 130 H Calcium Ferritin Total Bilirubin Alkaline Phosphatase Lactate Dehydrogenase Total Creatine Kinase CK-MB (CK-2) Rel Index Troponin T C-Reactive Protein Total Protein Albumin Prealbumin LDL Cholesterol Direct HDL Cholesterol Arterial Blood Glucose Arterial Blood Ionized Calcium Urine WBC (Auto) 04/20/20 04/21/20 04/21/20 23:31 05:55 05:55 WBC RBC Hgb 10.0 L Hct 31.1 L MCV 82 L MCH 26 L RDW 17.0 H Plt Count 535 H Lymph % (Auto) [place] % (Auto) 9.2 H Lymph # (Auto) 1.1 L [place] # (Auto) Seg Neutrophils % 75.4 H Seg Neuts % (Manual) Lymphocytes % (Manual) Monocytes % (Manual) Basophils % (Manual) Seg Neutrophils # Seg Neutrophils # Man Lymphocytes # (Manual) Monocytes # (Manual) Eosinophils # (Manual) Basophils # (Manual) PT INR D-Dimer ABG pH POC ABG pCO2 POC ABG pO2 ABG pO2 ABG HCO3 ABG O2 Saturation ABG Base Excess ABG Hemoglobin ABG Oxyhemoglobin ABG Potassium ABG Glucose Oxyhemoglobin Carboxyhemoglobin Sodium Potassium Chloride 95.0 L Carbon Dioxide 34 H BUN Creatinine < 0.2 L Glucose 125 H POC Glucose 116 H Calcium Ferritin Total Bilirubin Alkaline Phosphatase Lactate Dehydrogenase Total Creatine Kinase CK-MB (CK-2) Rel Index Troponin T C-Reactive Protein Total Protein Albumin Prealbumin LDL Cholesterol Direct HDL Cholesterol Arterial Blood Glucose Arterial Blood Ionized Calcium Urine WBC (Auto) 04/22/20 04/22/20 04/22/20 00:01 07:45 07:45 WBC RBC Hgb 10.0 L Hct 30.7 L MCV 81 L MCH 27 L RDW 17.1 H Plt Count 490 H Lymph % (Auto) [place] % (Auto) Lymph # (Auto) [place] # (Auto) Seg Neutrophils % Seg Neuts % (Manual) 75.0 H Lymphocytes % (Manual) 11.0 L Monocytes % (Manual) 9.0 H Basophils % (Manual) Seg Neutrophils # Seg Neutrophils # Man Lymphocytes # (Manual) 0.8 L Monocytes # (Manual) Eosinophils # (Manual) Basophils # (Manual) PT INR D-Dimer ABG pH POC ABG pCO2 POC ABG pO2 ABG pO2 ABG HCO3 ABG O2 Saturation ABG Base Excess ABG Hemoglobin ABG Oxyhemoglobin ABG Potassium ABG Glucose Oxyhemoglobin Carboxyhemoglobin Sodium Potassium Chloride 96.3 L Carbon Dioxide 40 H BUN Creatinine < 0.2 L Glucose 109 H POC Glucose 110 H Calcium Ferritin Total Bilirubin Alkaline Phosphatase Lactate Dehydrogenase Total Creatine Kinase CK-MB (CK-2) Rel Index Troponin T C-Reactive Protein Total Protein Albumin Prealbumin LDL Cholesterol Direct HDL Cholesterol Arterial Blood Glucose Arterial Blood Ionized Calcium Urine WBC (Auto) 04/23/20 04/23/20 04/23/20 04:28 04:28 04:28 WBC RBC 3.64 L Hgb 9.7 L Hct 29.4 L MCV 81 L MCH 27 L RDW 17.2 H Plt Count 527 H Lymph % (Auto) [place] % (Auto) 8.9 H Lymph # (Auto) [place] # (Auto) Seg Neutrophils % Seg Neuts % (Manual) Lymphocytes % (Manual) Monocytes % (Manual) Basophils % (Manual) Seg Neutrophils # Seg Neutrophils # Man Lymphocytes # (Manual) Monocytes # (Manual) Eosinophils # (Manual) Basophils # (Manual) PT INR D-Dimer ABG pH POC ABG pCO2 POC ABG pO2 ABG pO2 ABG HCO3 ABG O2 Saturation ABG Base Excess ABG Hemoglobin ABG Oxyhemoglobin ABG Potassium ABG Glucose Oxyhemoglobin Carboxyhemoglobin Sodium Potassium Chloride 96.4 L Carbon Dioxide 32 H D BUN Creatinine < 0.2 L Glucose 134 H POC Glucose Calcium Ferritin Total Bilirubin Alkaline Phosphatase Lactate Dehydrogenase Total Creatine Kinase CK-MB (CK-2) Rel Index Troponin T 0.151 H* C-Reactive Protein Total Protein Albumin Prealbumin LDL Cholesterol Direct HDL Cholesterol 29 L Arterial Blood Glucose Arterial Blood Ionized Calcium Urine WBC (Auto) 04/23/20 04/23/20 04/24/20 06:03 23:41 05:28 WBC RBC 3.56 L Hgb 9.5 L Hct 28.9 L MCV 81 L MCH 27 L RDW 17.4 H Plt Count 462 H Lymph % (Auto) [place] % (Auto) Lymph # (Auto) [place] # (Auto) Seg Neutrophils % Seg Neuts % (Manual) 80.0 H Lymphocytes % (Manual) Monocytes % (Manual) Basophils % (Manual) Seg Neutrophils # Seg Neutrophils # Man Lymphocytes # (Manual) Monocytes # (Manual) Eosinophils # (Manual) Basophils # (Manual) PT INR D-Dimer ABG pH POC ABG pCO2 POC ABG pO2 ABG pO2 ABG HCO3 ABG O2 Saturation ABG Base Excess ABG Hemoglobin ABG Oxyhemoglobin ABG Potassium ABG Glucose Oxyhemoglobin Carboxyhemoglobin Sodium Potassium Chloride Carbon Dioxide BUN Creatinine Glucose POC Glucose 132 H 117 H Calcium Ferritin Total Bilirubin Alkaline Phosphatase Lactate Dehydrogenase Total Creatine Kinase CK-MB (CK-2) Rel Index Troponin T C-Reactive Protein Total Protein Albumin Prealbumin LDL Cholesterol Direct HDL Cholesterol Arterial Blood Glucose Arterial Blood Ionized Calcium Urine WBC (Auto) 04/24/20 04/24/20 04/24/20 05:28 05:28 05:33 WBC RBC Hgb Hct MCV MCH RDW Plt Count Lymph % (Auto) [place] % (Auto) Lymph # (Auto) [place] # (Auto) Seg Neutrophils % Seg Neuts % (Manual) Lymphocytes % (Manual) Monocytes % (Manual) Basophils % (Manual) Seg Neutrophils # Seg Neutrophils # Man Lymphocytes # (Manual) Monocytes # (Manual) Eosinophils # (Manual) Basophils # (Manual) PT INR D-Dimer ABG pH POC ABG pCO2 POC ABG pO2 ABG pO2 ABG HCO3 ABG O2 Saturation ABG Base Excess ABG Hemoglobin ABG Oxyhemoglobin ABG Potassium ABG Glucose Oxyhemoglobin Carboxyhemoglobin Sodium Potassium Chloride 96.1 L Carbon Dioxide 40 H D BUN Creatinine < 0.2 L Glucose 115 H POC Glucose 109 H Calcium Ferritin Total Bilirubin Alkaline Phosphatase Lactate Dehydrogenase Total Creatine Kinase CK-MB (CK-2) Rel Index Troponin T 0.181 H* C-Reactive Protein Total Protein Albumin Prealbumin LDL Cholesterol Direct HDL Cholesterol Arterial Blood Glucose Arterial Blood Ionized Calcium Urine WBC (Auto) 04/24/20 04/24/20 04/25/20 11:17 18:23 00:12 WBC RBC Hgb Hct MCV MCH RDW Plt Count Lymph % (Auto) [place] % (Auto) Lymph # (Auto) [place] # (Auto) Seg Neutrophils % Seg Neuts % (Manual) Lymphocytes % (Manual) Monocytes % (Manual) Basophils % (Manual) Seg Neutrophils # Seg Neutrophils # Man Lymphocytes # (Manual) Monocytes # (Manual) Eosinophils # (Manual) Basophils # (Manual) PT INR D-Dimer ABG pH POC ABG pCO2 POC ABG pO2 ABG pO2 ABG HCO3 ABG O2 Saturation ABG Base Excess ABG Hemoglobin ABG Oxyhemoglobin ABG Potassium ABG Glucose Oxyhemoglobin Carboxyhemoglobin Sodium Potassium Chloride Carbon Dioxide BUN Creatinine Glucose POC Glucose 117 H 109 H 113 H Calcium Ferritin Total Bilirubin Alkaline Phosphatase Lactate Dehydrogenase Total Creatine Kinase CK-MB (CK-2) Rel Index Troponin T C-Reactive Protein Total Protein Albumin Prealbumin LDL Cholesterol Direct HDL Cholesterol Arterial Blood Glucose Arterial Blood Ionized Calcium Urine WBC (Auto) 04/25/20 04/25/20 04/25/20 06:34 06:34 11:28 WBC 11.7 H RBC Hgb 10.0 L Hct 31.7 L MCV 82 L MCH 26 L RDW 17.5 H Plt Count 564 H Lymph % (Auto) [place] % (Auto) Lymph # (Auto) [place] # (Auto) Seg Neutrophils % Seg Neuts % (Manual) 78.0 H Lymphocytes % (Manual) 10.0 L Monocytes % (Manual) 9.0 H Basophils % (Manual) Seg Neutrophils # Seg Neutrophils # Man 9.1 H Lymphocytes # (Manual) Monocytes # (Manual) 1.1 H Eosinophils # (Manual) Basophils # (Manual) PT INR D-Dimer ABG pH POC ABG pCO2 POC ABG pO2 ABG pO2 ABG HCO3 ABG O2 Saturation ABG Base Excess ABG Hemoglobin ABG Oxyhemoglobin ABG Potassium ABG Glucose Oxyhemoglobin Carboxyhemoglobin Sodium Potassium Chloride Carbon Dioxide 39 H BUN Creatinine < 0.2 L Glucose 103 H POC Glucose 112 H Calcium Ferritin Total Bilirubin Alkaline Phosphatase Lactate Dehydrogenase Total Creatine Kinase CK-MB (CK-2) Rel Index Troponin T C-Reactive Protein Total Protein Albumin Prealbumin LDL Cholesterol Direct HDL Cholesterol Arterial Blood Glucose Arterial Blood Ionized Calcium Urine WBC (Auto) 04/27/20 04/27/20 04/27/20 11:48 17:08 23:31 WBC RBC Hgb Hct MCV MCH RDW Plt Count Lymph % (Auto) [place] % (Auto) Lymph # (Auto) [place] # (Auto) Seg Neutrophils % Seg Neuts % (Manual) Lymphocytes % (Manual) Monocytes % (Manual) Basophils % (Manual) Seg Neutrophils # Seg Neutrophils # Man Lymphocytes # (Manual) Monocytes # (Manual) Eosinophils # (Manual) Basophils # (Manual) PT INR D-Dimer ABG pH POC ABG pCO2 POC ABG pO2 ABG pO2 ABG HCO3 ABG O2 Saturation ABG Base Excess ABG Hemoglobin ABG Oxyhemoglobin ABG Potassium ABG Glucose Oxyhemoglobin Carboxyhemoglobin Sodium Potassium Chloride Carbon Dioxide BUN Creatinine Glucose POC Glucose 124 H 118 H 122 H Calcium Ferritin Total Bilirubin Alkaline Phosphatase Lactate Dehydrogenase Total Creatine Kinase CK-MB (CK-2) Rel Index Troponin T C-Reactive Protein Total Protein Albumin Prealbumin LDL Cholesterol Direct HDL Cholesterol Arterial Blood Glucose Arterial Blood Ionized Calcium Urine WBC (Auto) 04/28/20 04/29/20 04/29/20 05:42 00:14 05:30 WBC RBC Hgb Hct MCV MCH RDW Plt Count Lymph % (Auto) [place] % (Auto) Lymph # (Auto) [place] # (Auto) Seg Neutrophils % Seg Neuts % (Manual) Lymphocytes % (Manual) Monocytes % (Manual) Basophils % (Manual) Seg Neutrophils # Seg Neutrophils # Man Lymphocytes # (Manual) Monocytes # (Manual) Eosinophils # (Manual) Basophils # (Manual) PT INR D-Dimer ABG pH POC ABG pCO2 POC ABG pO2 ABG pO2 ABG HCO3 ABG O2 Saturation ABG Base Excess ABG Hemoglobin ABG Oxyhemoglobin ABG Potassium ABG Glucose Oxyhemoglobin Carboxyhemoglobin Sodium Potassium Chloride Carbon Dioxide BUN Creatinine Glucose POC Glucose 122 H 115 H 123 H Calcium Ferritin Total Bilirubin Alkaline Phosphatase Lactate Dehydrogenase Total Creatine Kinase CK-MB (CK-2) Rel Index Troponin T C-Reactive Protein Total Protein Albumin Prealbumin LDL Cholesterol Direct HDL Cholesterol Arterial Blood Glucose Arterial Blood Ionized Calcium Urine WBC (Auto) 04/30/20 05/01/20 05/01/20 00:29 05:39 12:30 WBC RBC Hgb Hct MCV MCH RDW Plt Count Lymph % (Auto) [place] % (Auto) Lymph # (Auto) [place] # (Auto) Seg Neutrophils % Seg Neuts % (Manual) Lymphocytes % (Manual) Monocytes % (Manual) Basophils % (Manual) Seg Neutrophils # Seg Neutrophils # Man Lymphocytes # (Manual) Monocytes # (Manual) Eosinophils # (Manual) Basophils # (Manual) PT INR D-Dimer ABG pH POC ABG pCO2 POC ABG pO2 ABG pO2 ABG HCO3 ABG O2 Saturation ABG Base Excess ABG Hemoglobin ABG Oxyhemoglobin ABG Potassium ABG Glucose Oxyhemoglobin Carboxyhemoglobin Sodium Potassium Chloride Carbon Dioxide BUN Creatinine Glucose POC Glucose 106 H 109 H 108 H Calcium Ferritin Total Bilirubin Alkaline Phosphatase Lactate Dehydrogenase Total Creatine Kinase CK-MB (CK-2) Rel Index Troponin T C-Reactive Protein Total Protein Albumin Prealbumin LDL Cholesterol Direct HDL Cholesterol Arterial Blood Glucose Arterial Blood Ionized Calcium Urine WBC (Auto) 05/01/20 05/03/20 05/03/20 23:35 05:09 11:36 WBC RBC Hgb Hct MCV MCH RDW Plt Count Lymph % (Auto) [place] % (Auto) Lymph # (Auto) [place] # (Auto) Seg Neutrophils % Seg Neuts % (Manual) Lymphocytes % (Manual) Monocytes % (Manual) Basophils % (Manual) Seg Neutrophils # Seg Neutrophils # Man Lymphocytes # (Manual) Monocytes # (Manual) Eosinophils # (Manual) Basophils # (Manual) PT INR D-Dimer ABG pH POC ABG pCO2 POC ABG pO2 ABG pO2 ABG HCO3 ABG O2 Saturation ABG Base Excess ABG Hemoglobin ABG Oxyhemoglobin ABG Potassium ABG Glucose Oxyhemoglobin Carboxyhemoglobin Sodium Potassium Chloride Carbon Dioxide BUN Creatinine Glucose POC Glucose 116 H 117 H 116 H Calcium Ferritin Total Bilirubin Alkaline Phosphatase Lactate Dehydrogenase Total Creatine Kinase CK-MB (CK-2) Rel Index Troponin T C-Reactive Protein Total Protein Albumin Prealbumin LDL Cholesterol Direct HDL Cholesterol Arterial Blood Glucose Arterial Blood Ionized Calcium Urine WBC (Auto) 05/03/20 05/03/20 05/03/20 14:06 14:06 23:39 WBC 12.5 H RBC Hgb 10.0 L Hct 31.2 L MCV 80 L MCH 26 L RDW 17.6 H Plt Count 488 H Lymph % (Auto) [place] % (Auto) Lymph # (Auto) [place] # (Auto) Seg Neutrophils % Seg Neuts % (Manual) Lymphocytes % (Manual) Monocytes % (Manual) Basophils % (Manual) Seg Neutrophils # Seg Neutrophils # Man Lymphocytes # (Manual) Monocytes # (Manual) Eosinophils # (Manual) Basophils # (Manual) PT INR D-Dimer ABG pH POC ABG pCO2 POC ABG pO2 ABG pO2 ABG HCO3 ABG O2 Saturation ABG Base Excess ABG Hemoglobin ABG Oxyhemoglobin ABG Potassium ABG Glucose Oxyhemoglobin Carboxyhemoglobin Sodium Potassium Chloride 95.4 L Carbon Dioxide 40 H BUN Creatinine < 0.2 L Glucose 121 H POC Glucose 107 H Calcium Ferritin Total Bilirubin Alkaline Phosphatase Lactate Dehydrogenase Total Creatine Kinase CK-MB (CK-2) Rel Index Troponin T C-Reactive Protein Total Protein Albumin Prealbumin LDL Cholesterol Direct HDL Cholesterol Arterial Blood Glucose Arterial Blood Ionized Calcium Urine WBC (Auto) 05/04/20 05/04/20 05/04/20 11:31 16:57 23:18 WBC RBC Hgb Hct MCV MCH RDW Plt Count Lymph % (Auto) [place] % (Auto) Lymph # (Auto) [place] # (Auto) Seg Neutrophils % Seg Neuts % (Manual) Lymphocytes % (Manual) Monocytes % (Manual) Basophils % (Manual) Seg Neutrophils # Seg Neutrophils # Man Lymphocytes # (Manual) Monocytes # (Manual) Eosinophils # (Manual) Basophils # (Manual) PT INR D-Dimer ABG pH POC ABG pCO2 POC ABG pO2 ABG pO2 ABG HCO3 ABG O2 Saturation ABG Base Excess ABG Hemoglobin ABG Oxyhemoglobin ABG Potassium ABG Glucose Oxyhemoglobin Carboxyhemoglobin Sodium Potassium Chloride Carbon Dioxide BUN Creatinine Glucose POC Glucose 113 H 126 H 126 H Calcium Ferritin Total Bilirubin Alkaline Phosphatase Lactate Dehydrogenase Total Creatine Kinase CK-MB (CK-2) Rel Index Troponin T C-Reactive Protein Total Protein Albumin Prealbumin LDL Cholesterol Direct HDL Cholesterol Arterial Blood Glucose Arterial Blood Ionized Calcium Urine WBC (Auto) 05/05/20 05/05/20 05/05/20 05:32 11:11 23:57 WBC RBC Hgb Hct MCV MCH RDW Plt Count Lymph % (Auto) [place] % (Auto) Lymph # (Auto) [place] # (Auto) Seg Neutrophils % Seg Neuts % (Manual) Lymphocytes % (Manual) Monocytes % (Manual) Basophils % (Manual) Seg Neutrophils # Seg Neutrophils # Man Lymphocytes # (Manual) Monocytes # (Manual) Eosinophils # (Manual) Basophils # (Manual) PT INR D-Dimer ABG pH POC ABG pCO2 POC ABG pO2 ABG pO2 ABG HCO3 ABG O2 Saturation ABG Base Excess ABG Hemoglobin ABG Oxyhemoglobin ABG Potassium ABG Glucose Oxyhemoglobin Carboxyhemoglobin Sodium Potassium Chloride Carbon Dioxide BUN Creatinine Glucose POC Glucose 109 H 124 H 119 H Calcium Ferritin Total Bilirubin Alkaline Phosphatase Lactate Dehydrogenase Total Creatine Kinase CK-MB (CK-2) Rel Index Troponin T C-Reactive Protein Total Protein Albumin Prealbumin LDL Cholesterol Direct HDL Cholesterol Arterial Blood Glucose Arterial Blood Ionized Calcium Urine WBC (Auto) 05/06/20 05/06/20 05/07/20 05:34 23:08 04:43 WBC RBC Hgb 10.1 L Hct 31.9 L MCV 81 L MCH 25 L RDW 17.6 H Plt Count 506 H Lymph % (Auto) [place] % (Auto) 8.6 H Lymph # (Auto) [place] # (Auto) 0.9 H Seg Neutrophils % Seg Neuts % (Manual) Lymphocytes % (Manual) Monocytes % (Manual) Basophils % (Manual) Seg Neutrophils # Seg Neutrophils # Man Lymphocytes # (Manual) Monocytes # (Manual) Eosinophils # (Manual) Basophils # (Manual) PT INR D-Dimer ABG pH POC ABG pCO2 POC ABG pO2 ABG pO2 ABG HCO3 ABG O2 Saturation ABG Base Excess ABG Hemoglobin ABG Oxyhemoglobin ABG Potassium ABG Glucose Oxyhemoglobin Carboxyhemoglobin Sodium Potassium Chloride Carbon Dioxide BUN Creatinine Glucose POC Glucose 121 H 107 H Calcium Ferritin Total Bilirubin Alkaline Phosphatase Lactate Dehydrogenase Total Creatine Kinase CK-MB (CK-2) Rel Index Troponin T C-Reactive Protein Total Protein Albumin Prealbumin LDL Cholesterol Direct HDL Cholesterol Arterial Blood Glucose Arterial Blood Ionized Calcium Urine WBC (Auto) 05/07/20 05/07/20 05/07/20 06:18 17:13 23:29 WBC RBC Hgb Hct MCV MCH RDW Plt Count Lymph % (Auto) [place] % (Auto) Lymph # (Auto) [place] # (Auto) Seg Neutrophils % Seg Neuts % (Manual) Lymphocytes % (Manual) Monocytes % (Manual) Basophils % (Manual) Seg Neutrophils # Seg Neutrophils # Man Lymphocytes # (Manual) Monocytes # (Manual) Eosinophils # (Manual) Basophils # (Manual) PT INR D-Dimer ABG pH POC ABG pCO2 POC ABG pO2 ABG pO2 ABG HCO3 ABG O2 Saturation ABG Base Excess ABG Hemoglobin ABG Oxyhemoglobin ABG Potassium ABG Glucose Oxyhemoglobin Carboxyhemoglobin Sodium Potassium Chloride Carbon Dioxide BUN Creatinine Glucose POC Glucose 121 H 122 H 114 H Calcium Ferritin Total Bilirubin Alkaline Phosphatase Lactate Dehydrogenase Total Creatine Kinase CK-MB (CK-2) Rel Index Troponin T C-Reactive Protein Total Protein Albumin Prealbumin LDL Cholesterol Direct HDL Cholesterol Arterial Blood Glucose Arterial Blood Ionized Calcium Urine WBC (Auto) 05/08/20 05/08/20 05:20 11:57 WBC RBC Hgb Hct MCV MCH RDW Plt Count Lymph % (Auto) [place] % (Auto) Lymph # (Auto) [place] # (Auto) Seg Neutrophils % Seg Neuts % (Manual) Lymphocytes % (Manual) Monocytes % (Manual) Basophils % (Manual) Seg Neutrophils # Seg Neutrophils # Man Lymphocytes # (Manual) Monocytes # (Manual) Eosinophils # (Manual) Basophils # (Manual) PT INR D-Dimer ABG pH POC ABG pCO2 POC ABG pO2 ABG pO2 ABG HCO3 ABG O2 Saturation ABG Base Excess ABG Hemoglobin ABG Oxyhemoglobin ABG Potassium ABG Glucose Oxyhemoglobin Carboxyhemoglobin Sodium Potassium Chloride Carbon Dioxide BUN Creatinine Glucose POC Glucose 121 H 113 H Calcium Ferritin Total Bilirubin Alkaline Phosphatase Lactate Dehydrogenase Total Creatine Kinase CK-MB (CK-2) Rel Index Troponin T C-Reactive Protein Total Protein Albumin Prealbumin LDL Cholesterol Direct HDL Cholesterol Arterial Blood Glucose Arterial Blood Ionized Calcium Urine WBC (Auto) Allied health notes reviewed: nursing
--- NOTE | 2020-05-08 18:01 | Progress Note ---
Assessment and Plan --Acute hypoxic hypercapnic respiratory failure; Intubated on mechanical ventilation. Etiology secondary to sepsis, ALS, multifocal pneumonia (Covid negative). S/p trach placement 03/07/20 --Status post cardiac arrest on 02/25, cardiac hernandez now stable --Dysphagia, status post PEG placement for tube feeding --ALS; Chronic Continue to provide supportive care --Elevated D-dimers; CTA chest, lower extremity venous Doppler both are negative Lovenox for DVT prophylaxis --Bilateral pneumonia; probably community-acquired Completed treatment ID recommendations appreciated --Sepsis secondary to pneumonia s/p empiric antibiotic --Elevated troponin; Serial cardiac enzymes, serial EKGs Echocardiogram, cardiology consult if needed --Hypernatremia Trend sodium Free water via feeding tube --Abdominal distention due to bladder outlet obstruction, resolved CT abdomen showed bladder outlet obstruction, urology consulted s/p drake placement by urology on 03/09 --Hypotension possibly from septic shock and bladder outlet obstruction improved following placing drake --Hypernatremia due to hypovolumia, resolved free water with TF --Constipation; Patient already received Dulcolax suppository and Colace Received milk of magnesia, with relief --DVT prophylaxis; Lovenox Brief history: 59-year-old male patient with significant past medical history of ALS, presented to ED with worsening shortness of breath since the morning [employer]. Patient was on a trilogy machine for breathing 18/11. EMS arrived, patient had O2 sats in the 80s. EMS attempted to place patient on their CPAP machine, however patient did not tolerate. Patient was admitted to the ICU with diagnosis of acute hypoxic respiratory failure and placed on BiPAP. Patient initially tolerated but later deteriorated with respiratory status. CTA chest showed no PE but significant for bilateral pneumonia. Doppler ultrasound also negative for DVT. COVID-19 test ordered and negative. Due to persistent hypoxia and asystolic/V. fib cardiac arrest, patient was intubated on 02/26/2020 at 1500. Patient now on mechanical ventilation in the ICU s/p trach placement and now unable to wean off from the mechanical ventilation. Patient now status post PEG placement for tube feeding. Patient most likely need long-term placement -LTAC versus SNF Daily course: 02/25/2020. CTA of the chest reveals no PE but does illustrate the bilateral pneumonia. Doppler ultrasound also negative for DVT. Blood cultures are pe nding. Await COVID-19 testing. Patient currently requiring BiPAP IPAP 24/EPAP 6 with FiO2 of 25%. Continue O2 and BiPAP as clinically indicated. ID and pulmonary consulted. 02/26/2020. Blood cultures are negative x48 hours and Covid testing negative as well. Continue antibiotics per ID recommendations for community-acquired bilateral pneumonia. Cardiology consultation for elevated troponin. Check echocardiogram. 02/27/2020. Events of yesterday noted with asystole following V. fib arrest. Patient currently on AC mode rate 20, tidal volume 400, FiO2 50% and a PEEP of 6. Follow-up echocardiogram for elevated troponin. Cardiology suspects NSTEMI Type 2 in the setting of acute resp failure. Chest CTA and BLE Dopplers neg. we will discontinue Decadron given the Covid PCR is negative. 02/28/2020. I spoke with the sister Felisa Eli who is the power of corporate attorney regarding advanced directives and she instructed me that she would like to continue with aggressive care at this time. I informed her of the guarded prognosis and high mortality/morbidity and she voiced understanding. Patient currently with AC mode ventilation rate 18, tidal volume 400, FiO2 40% and a PEEP of 6. Continue antibiotics for pneumonia. ID previously consulted. Also consult neurology with regards to ALS. 02/29/2020; patient is intubated and on CPAP patient is alert and oriented. Patient has ALS. Dr. Álvarez spoke with his sister and she wants aggressive care. Continue antibiotics for pneumonia. Neurology consulted for ALS. Prognosis poor 03/01/2020; patient is intubated and on CPAP, patient is alert and oriented. I spoke with his 2 sisters about the management plan. 03/02/2020; patient is intubated and on CPAP. Patient was alert and oriented. I spoke with Dr. mohr and he thinks patient may need mechanical ventilation, likely his disease progressed. Dr. Flowers did debridement this morning. 03/03/2020; patient is intubated and on CPAP, patient was on trilogy and BiPAP at home. Patient has ALS. on spontaneous breathing trial. Patient is alert and oriented but quadriplegic. Patient has severe bilateral pneumonia and is on cefepime and Vanco, ID is following. Patient has sacral decubitus ulcer and debridement was done by Dr. Flowers and there is no osteomyelitis. 03/05. Patient still on broad-spectrum antibiotics. Status post sacral decubitus ulcer debridements-no osteomyelitis. Patient is on AC 25/400/30% PEEP 5. No blood gas results today. 03/06. Plan for tracheostomy by surgery. Still remains intubated. Labs reviewed-sodium 150. Started on free water 200 every 8hr. trend sodium. 03/07: s/p trach placement today, patient placed back on mechanical ventilation with trach. Plan to resume tube feeding with NG tube. Continue to monitor vitals, monitor BMP. 03/08: Patient noted to have distended abdomen with low urinary output. Obtain bladder scan rule out urine retention, UA and urine culture, continue to follow clinically. 03/09: Patient noted to have low blood pressure with SBP as low as 70s. Ordered for 500 mils normal saline bolus. CT abdomen showed bladder outlet obstruction, urology consulted. 03/10: placed on drake by urology o/n, improved urine outpt. cont to monitor BMP. resuded TF - cont free water with TF. wean off from vent as tolerated. 03/11: Vitals stable. cont TF, wean off from vent as tolerated. start on 1/2 NS for hypernatremia - follow BMP 03/12: wean off vent as tolerated, plan for speech eval, cont Tf for now, cont iv fluid 03/13: unable to wean off from vent, unable to do speech therapy eval. will need PEG tube, cont supportive care for now, cont NG tube feeding 03/14: consulted GI for PEg placemnet, cont supportive care. remains on vent at night 03/15: Discussed with GI, plan for PEG tube placement possibly tomorrow. Continue supportive care and wean off from vent as tolerated. Hold Lovenox dose tonight. 03/16: family didnot consent for PEG placement yesterday. I spoke with the megan rodriguez today and she is now agreeable for PEG tube. I explained the necessity of the procedure with RN to the patient also and he nodded started on tube feeding, for the procedure. will cont supportive care. planned for PEG tube placement tomorrow. 03/17: s/p PEG placement today, patient tolerated well, cont supportive care 03/18: Started on tube feeding with new PEG tube, continue to wean off vent as tolerated 03/19: cont to monitor with supportive care, wean off vent as tolerated 03/20: Continue to wean off vent as tolerated -but failing weaning trial. Still requiring vent support at night. Currently on PEG tube for tube feed. 03/21. Pt with PSV trials with FiO@ 30%, PEEP 6, PS 10. Currently on PEG tube for tube feed. 03/22/2020. Continue PSV trials per pulmonary. Continue bronchodilators. Patient tolerating tube feedings. Continue Robinul for secretion control. 03/23/2020. Continue PSV trials per pulmonary. Continue bronchodilators. Continue Scopolamine and Robinul for secretion control. Trach care/airway management. Mobility protocols for pressure ulcer prophylaxis. LTAC evaluation per case management 03/24/2020. Continue PSV trials with current settings pressure support 10, PEEP 6 and FiO2 30%. Continue bronchodilators/nebulizer. Continue Scopolamine and Robinul for secretion control. Trach care/airway management. Mobility protocols for pressure ulcer prophylaxis. LTAC evaluation per case management 03/25/2020. Pulmonary to proceed with T-piece trials today. Continue bronchodilators/nebulizer. Continue Scopolamine and Robinul for secretion control. Trach care/airway management. Mobility protocols for pressure ulcer prophylaxis. 03/26/2020. Patient currently with PSV 10/6 at FiO2 of 30%. Continue weaning and T-piece trials per protocol. Continue bronchodilators/nebulizer. Continue Scopolamine and Robinul for secretion control. Trach care/airway management. Mobility protocols for pressure ulcer prophylaxis. Continue tube feeding with aspiration precautions. 03/27/2020. Patient currently with PSV 10/6 at FiO2 of 30%. Continue weaning and T-piece trials per protocol. Continue bronchodilators/nebulizer. Continue Scopolamine and Robinul for secretion control. Trach care/airway management. Mobility protocols for pressure ulcer prophylaxis. Continue tube feeding with aspiration precautions. 03/28. Had temp 100.7F. He has been off antibiotics. Will send blood culture, ua, urine culture and chest xray. Had chest pain overnight and trop was elevated as well. Cardiology to evaluate 03/29. Has back pain due to position. He mentions his chest pain is positional. Has no other complaints. Still on mechanical ventilation 03/30. No chest pain today. Labs reviewed. Discussed chest pain with cardiology and team advised no further work up at this time. Can follow up with cardiology in the office after hospitalization 03/31. Lidocaine patch for lower back pain. 04/01. Discharge planning underway. CM notes reviewed. Discussed with daughter 04/02. CM trying to arrange discharge. Continue PSV trials. Discussed with patients significant other 04/04/2020; CM is working for discharge arrangement. Continue PSV trials. 04/05/2020; patient was seen and evaluated this morning and no change from baseline. Continue with PSV trials. Follow with bridge/structure inspection team leader for discharge planning. 04/06/2020;patient was seen and evaluated this morning and no change from baseline. Continue with PSV trials. Follow with bridge/structure inspection team leader for discharge planning. 04/07/2020; patient was seen and evaluated this morning and no change from baseline. Continue with PSV trials. Follow with bridge/structure inspection team leader for discharge planning. 04/08/2020; patient is vent dependent. Discharge is per bridge/structure inspection team leader. 04/09/2020 patient is vent dependent, possible LTAC placement 04/10/2020; tracheostomy on vent, vent dependent pending LTAC placement 04/11/2020; clinically no change, tracheostomy on ventilatory support, wean as tolerated, awaiting placement 04/12/2020; remains on ventilatory support, unable to wean, patient wants to see a speech therapist for sound box However we cannot try that as long as he is on ventilatory support, once he is weaned off vent We will consult speech therapist, plan of care reviewed with the patient and his nurse 04/14/2020; clinically no change, on ventilatory support, complains of constipation, milk of magnesia Closely monitor the patient and adjust the management as needed 04/15/2020; patient has some oral thrush on the tongue, will give Magic mouthwash/nystatin swish and spit Wean off vent as tolerated 04/16 patient is alert and oriented, unable to comprehend what he is trying to tell but appears to complain of some pain, no acute events overnight, all interdisciplinary notes reviewed. [facility]ing for [facility] facility placement 04/17/2020. Continue supportive care with mechanical ventilation. Patient currently on AC mode rate 10, tidal volume 400 FiO2 30% with a PEEP of 6. Discharge planning per case management. 04/18/2020. Patient remains on mechanical ventilation AC mode rate 10, tidal volume 400, FiO2 30% and PEEP of 6. Continue spontaneous breathing trials as tolerated. Previously, patient was considered for discharge home with skilled staff providing care for 12 hours 7 days/week. Continue discussed with case management discharge planning. 04/19/20. Patient remains on mechanical ventilation AC mode rate 10, tidal volume 400, FiO2 30% and PEEP of 6. Continue spontaneous breathing trials as tolerated. 04/20/2020. Patient remains on mechanical ventilation AC mode rate 10, tidal volume 400, FiO2 30% and PEEP of 6. Continue spontaneous breathing trials as tolerated. 04/21/2020. Patient remains on mechanical ventilation AC mode rate 10, tidal volume 400, FiO2 30% and PEEP of 6. Continue tracheostomy care, secretion control and airway management. Continue spontaneous breathing trials as tolerated. 04/22/2020. Patient remains on mechanical ventilation AC mode rate 10, tidal volume 400, FiO2 30% and PEEP of 6. Continue tracheostomy care, secretion control and airway management. Continue spontaneous breathing trials as tolera milana. 04/23/2020. Patient on mechanical ventilation AC mode rate 18, tidal volume 450, FiO2 30% and PEEP of 6. Continue tracheostomy care, secretion control and airway management. Continue spontaneous breathing trials as tolerated. Continue Robinul and scopolamine for secretions. Continue baclofen. 04/24/2020. Patient remains on AC mode ventilation rate 10, tidal volume 400, FiO2 30% and PEEP of 6. Continue tracheostomy care, secretion control and airway management. Continue spontaneous breathing trials as tolerated. Continue Robinul and scopolamine for secretions. Continue baclofen. Continue Xanax for anxiety and Ambien for sleep. Await case management follow-up with regards to discharge planning. 04/25/2020. Patient remains on AC mode ventilation rate 10, tidal volume 400, FiO2 30% and PEEP of 6. Continue tracheostomy care, secretion control and airway management. Continue spontaneous breathing trials as tolerated. Continue Robinul and scopolamine for secretions. Continue baclofen. Continue Xanax for anxiety and Ambien for sleep. Await case management follow-up with regards to discharge planning. 04/26. Patient remains on AC mode ventilation rate 10, tidal volume 400, FiO2 30% and PEEP of 6. Continue tracheostomy care, secretion control and airway management. Continue spontaneous breathing trials as tolerated. Continue Robinul and scopolamine for secretions. Continue baclofen. Continue Xanax for anxiety and Ambien for sleep. Await case management follow-up with regards to discharge planning. 04/27. Patient remains on AC mode ventilation rate 10, tidal volume 400, FiO2 30% and PEEP of 6. Continue tracheostomy care, secretion control and airway management. Continue spontaneous breathing trials as tolerated. Continue Robinul and scopolamine for secretions. Continue baclofen. Continue Xanax for anxiety and Ambien for sleep. Await case management follow-up with regards to discharge planning. 04/28/20 no acute events overnight, remains vent dependent, cardiology and pulmonary notes reviewed 04/29 remains intubated via tracheostomy, no acute events 04/30 no acute events overnight, cardiology note reviewed, remains vent dependent, discharge planning per case management 05/01 stable. cardiology and pulmonary notes reviewed. D/C acu-checks 05/02 - todate: Clinically stable, CM working on placement. Continue supportive care. Subjective Date of service: 05/08/20 Principal diagnosis: Ac on Ch Hypercapnic & hypoxemic Resp Failure; Severe Sepsis; Jamar PNA; ALS Interval history: Patient seen and examined Remains on trach tube Discussed with RN at the bedside Vitals reviewed -BP stable Tolerating tube feeding with PEG tube Objective - Exam Narrative Exam: GENERAL: Awake. Intubated with trach tube HEAD: No signs of head trauma. EYES: Pupils are equal. Extraocular motions intact. EARS: Hearing grossly intact. MOUTH: Oropharynx is normal. NECK: No adenopathy, no JVD. CHEST: Coarse breath sounds bilaterally CARDIAC: Regular rate and rhythm. S1 and S2, without murmurs, gallops, or rubs. VASCULAR: No Edema. Peripheral pulses normal and equal in all extremities. ABDOMEN: Soft, non tender and nondistended. Bowel Sounds normal. PEG in place NEUROLOGIC EXAM: Awake, paraplegic SKIN: No obvious lesions - Constitutional Vitals: Vital Signs - 12hr 05/08/20 05/08/20 05/08/20 07:00 08:00 09:00 Temperature 98.4 F Pulse Rate 116 H 102 H 105 H Pulse Rate [ 98 H From Monitor] Respiratory 15 13 19 Rate Blood Pressure 110/75 116/78 115/81 O2 Sat by Pulse 93 99 100 Oximetry O2 Sat by Pulse 99 Oximetry [ Assessment] 05/08/20 05/08/20 05/08/20 09:24 09:48 10:00 Temperature Pulse Rate 106 H 104 H Pulse Rate [ From Monitor] Respiratory 12 Rate Blood Pressure 115/81 110/81 O2 Sat by Pulse 99 99 Oximetry O2 Sat by Pulse Oximetry [ Assessment] 05/08/20 05/08/20 05/08/20 11:00 11:30 12:00 Temperature 98.9 F Pulse Rate 102 H 105 H 106 H Pulse Rate [ 106 H From Monitor] Respiratory 17 19 Rate Blood Pressure 117/85 108/77 108/77 O2 Sat by Pulse 100 99 99 Oximetry O2 Sat by Pulse Oximetry [ Assessment] 05/08/20 05/08/20 05/08/20 13:00 14:00 15:00 Temperature Pulse Rate 95 H 110 H 84 Pulse Rate [ From Monitor] Respiratory 22 13 17 Rate Blood Pressure 118/79 110/78 107/78 O2 Sat by Pulse 98 98 Oximetry O2 Sat by Pulse Oximetry [ Assessment] 05/08/20 05/08/20 05/08/20 16:00 16:05 17:00 Temperature 98.2 F Pulse Rate 105 H 112 H 108 H Pulse Rate [ From Monitor] Respiratory 11 L 14 Rate Blood Pressure 104/79 104/79 107/83 O2 Sat by Pulse 100 96 Oximetry O2 Sat by Pulse 100 Oximetry [ Assessment] - Labs CBC & Chem 7: 05/07/20 04:43 05/09/20 16:06 Labs: Abnormal lab results 05/07/20 05/08/20 05/08/20 Range/Units 23:29 05:20 11:57 POC Glucose 114 H 121 H 113 H (70-105) mg/dL HEART Score - HEART Score Troponin: Troponin T 0.181 ng/mL (0.00-0.029) H* 04/24/20 05:28
[2020-05-08] MEDS: ALPRAZolam 0.5 MG TAB PO PRN (20:40)
[2020-05-08] MEDS: ENOXAPARIN 40 MG/0.4 ML INJ SUB-Q SCH (22:11)
[2020-05-08] MEDS: SENNOSIDES 8.6 MG TAB PO SCH (22:13)
[2020-05-08] MEDS: ZOLPIDEM 5 MG TAB PO PRN (22:24)
[2020-05-09] MEDS: MORPHINE 2 MG/1 ML INJ IV PRN ×5 (00:35→20:54)
[2020-05-09] MEDS: ALPRAZolam 0.5 MG TAB PO PRN ×3 (05:33→22:29)
[2020-05-09] MEDS: LIDOCAINE 5% 1 EACH PATCH TD SCH (09:39)
[2020-05-09] MEDS: PREGABALIN 75 MG CAP PO SCH ×2 (09:40→22:28)
[2020-05-09] MEDS: METOPROLOL TARTRATE 25 MG TAB PO SCH ×2 (09:40→22:27)
[2020-05-09] MEDS: ASPIRIN EC 81 MG TAB PO SCH (09:40)
[2020-05-09] MEDS: GLYCOPYRROLATE 1 MG TAB PO SCH ×3 (09:40→20:56)
[2020-05-09] MEDS: DOCUSATE SODIUM 100 MG/10 ML ORAL LIQD FEEDTUBE SCH ×2 (09:41→22:29)
[2020-05-09] MEDS: BACLOFEN 10 MG TAB PO SCH ×2 (09:41→22:28)
[2020-05-09] MEDS: MAGIC MOUTHWASH 30ML PO SCH ×3 (09:41→20:55)
[2020-05-09] MEDS: SODIUM HYPOCHLORITE, DAKIN'S 1/2 STRENGTH (0.25%) 473 ML TOPICAL SOLN TP SCH ×2 (09:41→22:00)
[2020-05-09] MEDS: LANSOPRAZOLE 30 MG SOLUTAB FEEDTUBE SCH (09:41)
[2020-05-09] MEDS: TAMSULOSIN 0.4 MG CAP PO SCH (09:42)
[2020-05-09] MEDS: traMADol 50 MG TAB PO PRN ×2 (09:58→22:29)
--- NOTE | 2020-05-09 10:30 | Progress Note ---
Assessment and Plan Patient awake. Patient is on Pressure support ventilation, pressure support 10, FIO2 30%, PEEP 6 and O2 saturation running 99%. Recommend Continue spontaneous breathing trials as tolerated.Respiratory therapy told me, Patient Not tolearing T tube trial ' Recommend to pressure support to 8.Patient afebrile and has leukocytosis. Chest xray done 05/02/20 reported Interval worsening of right lung base opacity now appears to be pleural parenchymal. This may be a worsened infectious process or development of right-sided pleural effusion and worsened right lung base atelectasis. Left lung base opacity is stable. Tracheostomy in stable position. Patient right lung base infiltrate reported intervel worsening, patient has no leukocytosis, recommend to place him antibiotic like zosyn. - Patient Problems (1) Acute on chronic respiratory failure with hypoxia and hypercapnia Current Visit: Yes Status: Acute Plan to address problem: Patient is resting on Pressure support 10, FIO2 30%, PEEP 6. Albuterol inhaler 2 puffs po qid. Continue S/C Lovenox. Continue prevacid. Recommend to decrease pressure support 8. (2) Bleeding from wound Current Visit: Yes Status: Acute Plan to address problem: Management primary care , surgery and wound care. (3) Elevated d-dimer Current Visit: Yes Status: Acute Plan to address problem: Patients venous doppler studies of legs, CTA chest reported Negative for VTE. Patient is on S/C Lovenox 40 mg qd. (4) Elevated troponin Current Visit: Yes Status: Acute Plan to address problem: Management as per primary care and cardiology (5) NSTEMI (non-ST elevated myocardial infarction) Current Visit: Yes Status: Acute Plan to address problem: Management as per cardiology. (6) Pneumonia Current Visit: Yes Status: Acute Qualifiers: Laterality: bilateral Plan to address problem: Patient afebrile . Has mild leukocytosis. Repeat Chest xray done 05/02/20 reported Interval worsening of right lung base opacity now appears to be pleural parenchymal. This may be a worsened infectious process or development of right-sided pleural effusion and worsened right lung base atelectasis. Left lung base opacity is stable. Tracheostomy in stable position. Patient right lung base infiltrate reported intervel worsening, patient has no leukocytosis, recommend to place him antibiotic like zosyn. Subjective Date of service: 05/09/20 Principal diagnosis: Ac on Ch Hypercapnic & hypoxemic Resp Failure; Severe Sepsis; Jamar PNA; ALS Interval history: Patient awake. Patient is on Pressure support ventilation, pressure support 10, FIO2 30%, PEEP 6 and O2 saturation running 99%. Recommend Continue spontaneous breathing trials as tolerated.Respiratory therapy told me, Patient Not tolearing T tube trial ' Recommend to pressure support to 8.Patient afebrile and has leukocytosis. Chest xray done 05/02/20 reported Interval worsening of right lung base opacity now appears to be pleural parenchymal. This may be a worsened infectious process or development of right-sided pleural effusion and worsened right lung base atelectasis. Left lung base opacity is stable. Tracheostomy in stable position. Patient right lung base infiltrate reported intervel worsening, patient has no leukocytosis, recommend to place him antibiotic like zosyn. Objective Vital Signs - 12hr 05/08/20 05/09/20 05/09/20 23:00 00:00 00:33 Temperature 98.8 F Pulse Rate 92 H 108 H 108 H Pulse Rate [ 108 H From Monitor] Respiratory 11 L 22 Rate Blood Pressure 108/72 111/82 108/72 O2 Sat by Pulse 98 93 98 Oximetry 05/09/20 05/09/20 05/09/20 00:35 01:00 02:00 Temperature Pulse Rate 105 H 103 H Pulse Rate [ From Monitor] Respiratory 13 15 16 Rate Blood Pressure 110/77 106/82 O2 Sat by Pulse 91 93 Oximetry 05/09/20 05/09/20 05/09/20 03:00 04:00 04:48 Temperature 98.4 F Pulse Rate 107 H 118 H 116 H Pulse Rate [ 118 H From Monitor] Respiratory 22 20 Rate Blood Pressure 106/82 109/62 109/62 O2 Sat by Pulse 98 98 97 Oximetry 05/09/20 05/09/20 05/09/20 05:00 06:00 07:00 Temperature Pulse Rate 114 H 113 H 105 H Pulse Rate [ From Monitor] Respiratory 15 19 21 Rate Blood Pressure 106/69 108/71 107/78 O2 Sat by Pulse 94 95 98 Oximetry 05/09/20 05/09/20 05/09/20 08:00 09:00 09:13 Temperature 98.6 F Pulse Rate 104 H 98 H 92 H Pulse Rate [ 102 H From Monitor] Respiratory 17 22 21 Rate Blood Pressure 111/79 117/73 117/73 O2 Sat by Pulse 97 96 100 Oximetry 05/09/20 10:00 Temperature Pulse Rate 114 H Pulse Rate [ From Monitor] Respiratory 18 Rate Blood Pressure 110/70 O2 Sat by Pulse 93 Oximetry Constitutional: no acute distress, alert, other (thin middle aged male with normal respiratory effort at rest on MVS) Eyes: non-icteric ENT: oropharynx moist, other (S/P Tracheostomy) Neck: supple, no lymphadenopathy, no JVD Effort: mildly labored Ascultation: Bilateral: diminished breath sounds, wheezes, rhonchi (scant in bases) Percussion: Bilateral: not dull Cardiovascular: regular rate and rhythm, other (S1,S2, no murmurs) Gastrointestinal: normoactive bowel sounds, soft, non-tender, non-distended, other (+ distended but non tender suprapubis) Integumentary: normal, decubitus ulcer (sacral / gluteal) Extremities: no cyanosis, no edema, pulses normal, other (atrophic looking limbs) Neurologic: pupils equal and round, other (motor strength in extremities 1-2/5, awake, alert, mouths words to make needs known) Psychiatric: mood appropriate, affect normal CBC and BMP: 05/07/20 04:43 05/09/20 16:06 ABG, PT/INR, D-dimer: ABG ABG pH 7.371 (7.320-7.450) 03/08/20 12:34 POC ABG pCO2 63.1 mmHg (32.0-48.0) H 03/08/20 12:34 ABG pCO2 60.1 mm Hg 03/06/20 04:34 POC ABG pO2 90.5 mmHg (83-108) 03/08/20 12:34 ABG pO2 88.6 mm Hg (80.0-90.0) 03/06/20 04:34 POC ABG HCO3 35.7 03/08/20 12:34 ABG O2 Saturation 97.0 % (95.0-99.0) 03/06/20 04:34 PT/INR, D-dimer PT 15.6 Sec. (12.2-14.9) H 02/24/20 09:19 INR 1.21 (0.87-1.13) H 02/24/20 09:19 D-Dimer 1311.96 ng/mlDDU (0-234) H 02/24/20 09:19 Abnormal lab findings: Abnormal Labs 02/24/20 02/24/20 02/24/20 09:19 09:19 09:19 WBC 20.2 H RBC 5.05 H Hgb Hct MCV MCH RDW 15.3 H Plt Count Lymph % (Auto) Roberts % (Auto) Lymph # (Auto) Roberts # (Auto) Seg Neutrophils % Seg Neuts % (Manual) 86.0 H Lymphocytes % (Manual) 1.0 L Monocytes % (Manual) Basophils % (Manual) Seg Neutrophils # Seg Neutrophils # Man 17.4 H Lymphocytes # (Manual) 0.2 L Monocytes # (Manual) Eosinophils # (Manual) Basophils # (Manual) PT 15.6 H INR 1.21 H D-Dimer 1311.96 H ABG pH POC ABG pCO2 POC ABG pO2 ABG pO2 ABG HCO3 ABG O2 Saturation ABG Base Excess ABG Hemoglobin ABG Oxyhemoglobin ABG Potassium ABG Glucose Oxyhemoglobin Carboxyhemoglobin Sodium 135 L Potassium 3.2 L Chloride 92.2 L Carbon Dioxide BUN 6 L Creatinine < 0.2 L Glucose 124 H POC Glucose Calcium Ferritin Total Bilirubin 2.30 H Alkaline Phosphatase 132 H Lactate Dehydrogenase Total Creatine Kinase CK-MB (CK-2) Rel Index Troponin T 0.080 H C-Reactive Protein Total Protein Albumin 3.6 L Prealbumin LDL Cholesterol Direct 41 L HDL Cholesterol Arterial Blood Glucose Arterial Blood Ionized Calcium Urine WBC (Auto) 02/24/20 02/24/20 02/24/20 09:19 09:58 10:01 WBC RBC Hgb Hct MCV MCH RDW Plt Count Lymph % (Auto) Roberts % (Auto) Lymph # (Auto) Roberts # (Auto) Seg Neutrophils % Seg Neuts % (Manual) Lymphocytes % (Manual) Monocytes % (Manual) Basophils % (Manual) Seg Neutrophils # Seg Neutrophils # Man Lymphocytes # (Manual) Monocytes # (Manual) Eosinophils # (Manual) Basophils # (Manual) PT INR D-Dimer ABG pH 7.176 L* POC ABG pCO2 POC ABG pO2 ABG pO2 91.2 H ABG HCO3 ABG O2 Saturation ABG Base Excess -4.6 L ABG Hemoglobin ABG Oxyhemoglobin ABG Potassium ABG Glucose Oxyhemoglobin 92.6 L Carboxyhemoglobin Sodium Potassium Chloride Carbon Dioxide BUN Creatinine Glucose POC Glucose Calcium Ferritin 1715.0 H Total Bilirubin Alkaline Phosphatase Lactate Dehydrogenase 303 H Total Creatine Kinase CK-MB (CK-2) Rel Index Troponin T C-Reactive Protein 26.10 H Total Protein Albumin Prealbumin LDL Cholesterol Direct HDL Cholesterol Arterial Blood Glucose Arterial Blood Ionized Calcium Urine WBC (Auto) 02/24/20 02/24/20 02/24/20 11:52 13:45 19:35 WBC RBC Hgb Hct MCV MCH RDW Plt Count Lymph % (Auto) Roberts % (Auto) Lymph # (Auto) Roberts # (Auto) Seg Neutrophils % Seg Neuts % (Manual) Lymphocytes % (Manual) Monocytes % (Manual) Basophils % (Manual) Seg Neutrophils # Seg Neutrophils # Man Lymphocytes # (Manual) Monocytes # (Manual) Eosinophils # (Manual) Basophils # (Manual) PT INR D-Dimer ABG pH 7.051 L* 7.300 L POC ABG pCO2 POC ABG pO2 ABG pO2 94.7 H 75.1 L ABG HCO3 18.0 L ABG O2 Saturation 93.5 L ABG Base Excess -6.8 L -7.8 L ABG Hemoglobin 13.2 L 11.9 L ABG Oxyhemoglobin ABG Potassium ABG Glucose Oxyhemoglobin 91.0 L 92.7 L Carboxyhemoglobin Sodium Potassium Chloride Carbon Dioxide BUN Creatinine Glucose POC Glucose Calcium Ferritin Total Bilirubin Alkaline Phosphatase Lactate Dehydrogenase Total Creatine Kinase CK-MB (CK-2) Rel Index Troponin T 0.034 H D C-Reactive Protein Total Protein Albumin Prealbumin LDL Cholesterol Direct HDL Cholesterol Arterial Blood Glucose Arterial Blood Ionized Calcium Urine WBC (Auto) 02/25/20 02/25/20 02/25/20 04:00 04:00 12:26 WBC 22.9 H RBC Hgb Hct MCV 83 L MCH 27 L RDW Plt Count 468 H Lymph % (Auto) Roberts % (Auto) Lymph # (Auto) Roberts # (Auto) Seg Neutrophils % Seg Neuts % (Manual) 89.0 H Lymphocytes % (Manual) 7.0 L Monocytes % (Manual) Basophils % (Manual) Seg Neutrophils # Seg Neutrophils # Man 20.4 H Lymphocytes # (Manual) Monocytes # (Manual) Eosinophils # (Manual) Basophils # (Manual) PT INR D-Dimer ABG pH POC ABG pCO2 POC ABG pO2 ABG pO2 ABG HCO3 ABG O2 Saturation ABG Base Excess ABG Hemoglobin ABG Oxyhemoglobin ABG Potassium 2.6 L ABG Glucose 142 H Oxyhemoglobin Carboxyhemoglobin Sodium Potassium 3.2 L Chloride Carbon Dioxide 18 L BUN Creatinine 0.2 L Glucose 114 H POC Glucose Calcium Ferritin Total Bilirubin Alkaline Phosphatase Lactate Dehydrogenase Total Creatine Kinase CK-MB (CK-2) Rel Index Troponin T C-Reactive Protein Total Protein Albumin 3.5 L Prealbumin LDL Cholesterol Direct HDL Cholesterol Arterial Blood Glucose 142 H Arterial Blood Ionized Calcium Urine WBC (Auto) 02/26/20 02/26/20 02/26/20 15:58 17:00 23:43 WBC RBC Hgb Hct MCV MCH RDW Plt Count Lymph % (Auto) Roberts % (Auto) Lymph # (Auto) Roberts # (Auto) Seg Neutrophils % Seg Neuts % (Manual) Lymphocytes % (Manual) Monocytes % (Manual) Basophils % (Manual) Seg Neutrophils # Seg Neutrophils # Man Lymphocytes # (Manual) Monocytes # (Manual) Eosinophils # (Manual) Basophils # (Manual) PT INR D-Dimer ABG pH 7.502 H POC ABG pCO2 POC ABG pO2 213.6 H ABG pO2 ABG HCO3 ABG O2 Saturation ABG Base Excess ABG Hemoglobin ABG Oxyhemoglobin 99.2 H ABG Potassium 2.9 L ABG Glucose 160 H Oxyhemoglobin Carboxyhemoglobin 0.4 L Sodium Potassium Chloride Carbon Dioxide BUN Creatinine Glucose POC Glucose 189 H 120 H Calcium Ferritin Total Bilirubin Alkaline Phosphatase Lactate Dehydrogenase Total Creatine Kinase CK-MB (CK-2) Rel Index Troponin T C-Reactive Protein Total Protein Albumin Prealbumin LDL Cholesterol Direct HDL Cholesterol Arterial Blood Glucose 160 H Arterial Blood Ionized Calcium 4.5 L Urine WBC (Auto) 02/27/20 02/27/20 02/27/20 05:00 07:04 17:45 WBC RBC Hgb Hct MCV MCH RDW Plt Count Lymph % (Auto) Roberts % (Auto) Lymph # (Auto) Roberts # (Auto) Seg Neutrophils % Seg Neuts % (Manual) Lymphocytes % (Manual) Monocytes % (Manual) Basophils % (Manual) Seg Neutrophils # Seg Neutrophils # Man Lymphocytes # (Manual) Monocytes # (Manual) Eosinophils # (Manual) Basophils # (Manual) PT INR D-Dimer ABG pH 7.524 H POC ABG pCO2 POC ABG pO2 ABG pO2 ABG HCO3 ABG O2 Saturation ABG Base Excess ABG Hemoglobin ABG Oxyhemoglobin ABG Potassium 3.0 L ABG Glucose 143 H Oxyhemoglobin Carboxyhemoglobin Sodium Potassium Chloride Carbon Dioxide BUN Creatinine Glucose POC Glucose 154 H 175 H Calcium Ferritin Total Bilirubin Alkaline Phosphatase Lactate Dehydrogenase Total Creatine Kinase CK-MB (CK-2) Rel Index Troponin T C-Reactive Protein Total Protein Albumin Prealbumin LDL Cholesterol Direct HDL Cholesterol Arterial Blood Glucose 143 H Arterial Blood Ionized Calcium Urine WBC (Auto) 02/27/20 02/28/20 02/28/20 Unknown 00:21 04:15 WBC 18.7 H RBC Hgb Hct MCV MCH RDW Plt Count Lymph % (Auto) 8.7 L Roberts % (Auto) Lymph # (Auto) Roberts # (Auto) 1.2 H Seg Neutrophils % 84.6 H Seg Neuts % (Manual) Lymphocytes % (Manual) Monocytes % (Manual) Basophils % (Manual) Seg Neutrophils # 15.9 H Seg Neutrophils # Man Lymphocytes # (Manual) Monocytes # (Manual) Eosinophils # (Manual) Basophils # (Manual) PT INR D-Dimer ABG pH POC ABG pCO2 POC ABG pO2 ABG pO2 ABG HCO3 ABG O2 Saturation ABG Base Excess ABG Hemoglobin ABG Oxyhemoglobin ABG Potassium ABG Glucose Oxyhemoglobin Carboxyhemoglobin Sodium Potassium 2.9 L* Chloride Carbon Dioxide 33 H D BUN Creatinine < 0.2 L Glucose 157 H POC Glucose 134 H Calcium Ferritin Total Bilirubin Alkaline Phosphatase Lactate Dehydrogenase Total Creatine Kinase CK-MB (CK-2) Rel Index Troponin T C-Reactive Protein Total Protein Albumin Prealbumin LDL Cholesterol Direct HDL Cholesterol Arterial Blood Glucose Arterial Blood Ionized Calcium Urine WBC (Auto) 02/28/20 02/28/20 02/28/20 04:15 05:16 05:39 WBC RBC Hgb Hct MCV MCH RDW Plt Count Lymph % (Auto) Roberts % (Auto) Lymph # (Auto) Roberts # (Auto) Seg Neutrophils % Seg Neuts % (Manual) Lymphocytes % (Manual) Monocytes % (Manual) Basophils % (Manual) Seg Neutrophils # Seg Neutrophils # Man Lymphocytes # (Manual) Monocytes # (Manual) Eosinophils # (Manual) Basophils # (Manual) PT INR D-Dimer ABG pH POC ABG pCO2 POC ABG pO2 ABG pO2 142.9 H ABG HCO3 34.1 H ABG O2 Saturation ABG Base Excess 8.3 H ABG Hemoglobin ABG Oxyhemoglobin ABG Potassium ABG Glucose Oxyhemoglobin Carboxyhemoglobin Sodium 151 H Potassium Chloride Carbon Dioxide 32 H BUN Creatinine 0.2 L Glucose 167 H POC Glucose 138 H Calcium Ferritin Total Bilirubin Alkaline Phosphatase Lactate Dehydrogenase Total Creatine Kinase CK-MB (CK-2) Rel Index Troponin T C-Reactive Protein Total Protein Albumin Prealbumin LDL Cholesterol Direct HDL Cholesterol Arterial Blood Glucose Arterial Blood Ionized Calcium Urine WBC (Auto) 02/28/20 02/28/20 02/28/20 11:05 11:33 12:54 WBC RBC Hgb Hct MCV MCH RDW Plt Count Lymph % (Auto) Roberts % (Auto) Lymph # (Auto) Roberts # (Auto) Seg Neutrophils % Seg Neuts % (Manual) Lymphocytes % (Manual) Monocytes % (Manual) Basophils % (Manual) Seg Neutrophils # Seg Neutrophils # Man Lymphocytes # (Manual) Monocytes # (Manual) Eosinophils # (Manual) Basophils # (Manual) PT INR D-Dimer ABG pH POC ABG pCO2 POC ABG pO2 ABG pO2 ABG HCO3 ABG O2 Saturation ABG Base Excess ABG Hemoglobin ABG Oxyhemoglobin ABG Potassium ABG Glucose Oxyhemoglobin Carboxyhemoglobin Sodium Potassium Chloride Carbon Dioxide BUN Creatinine Glucose POC Glucose 160 H Calcium Ferritin Total Bilirubin Alkaline Phosphatase Lactate Dehydrogenase Total Creatine Kinase CK-MB (CK-2) Rel Index Troponin T C-Reactive Protein 4.70 H Total Protein Albumin Prealbumin 0.090 L LDL Cholesterol Direct HDL Cholesterol Arterial Blood Glucose Arterial Blood Ionized Calcium Urine WBC (Auto) 02/28/20 02/29/20 02/29/20 17:34 00:44 04:05 WBC 19.6 H RBC Hgb Hct MCV MCH 27 L RDW 15.4 H Plt Count Lymph % (Auto) Roberts % (Auto) Lymph # (Auto) Roberts # (Auto) Seg Neutrophils % Seg Neuts % (Manual) 86.0 H Lymphocytes % (Manual) 7.0 L Monocytes % (Manual) Basophils % (Manual) Seg Neutrophils # Seg Neutrophils # Man 16.9 H Lymphocytes # (Manual) Monocytes # (Manual) 1.2 H Eosinophils # (Manual) Basophils # (Manual) PT INR D-Dimer ABG pH POC ABG pCO2 POC ABG pO2 ABG pO2 ABG HCO3 ABG O2 Saturation ABG Base Excess ABG Hemoglobin ABG Oxyhemoglobin ABG Potassium ABG Glucose Oxyhemoglobin Carboxyhemoglobin Sodium Potassium Chloride Carbon Dioxide BUN Creatinine Glucose POC Glucose 136 H 156 H Calcium Ferritin Total Bilirubin Alkaline Phosphatase Lactate Dehydrogenase Total Creatine Kinase CK-MB (CK-2) Rel Index Troponin T C-Reactive Protein Total Protein Albumin Prealbumin LDL Cholesterol Direct HDL Cholesterol Arterial Blood Glucose Arterial Blood Ionized Calcium Urine WBC (Auto) 02/29/20 02/29/20 02/29/20 04:05 05:14 05:33 WBC RBC Hgb Hct MCV MCH RDW Plt Count Lymph % (Auto) Roberts % (Auto) Lymph # (Auto) Roberts # (Auto) Seg Neutrophils % Seg Neuts % (Manual) Lymphocytes % (Manual) Monocytes % (Manual) Basophils % (Manual) Seg Neutrophils # Seg Neutrophils # Man Lymphocytes # (Manual) Monocytes # (Manual) Eosinophils # (Manual) Basophils # (Manual) PT INR D-Dimer ABG pH POC ABG pCO2 54.3 H POC ABG pO2 124.8 H ABG pO2 ABG HCO3 ABG O2 Saturation ABG Base Excess ABG Hemoglobin ABG Oxyhemoglobin ABG Potassium ABG Glucose 185 H Oxyhemoglobin Carboxyhemoglobin Sodium 148 H Potassium Chloride Carbon Dioxide 33 H BUN Creatinine < 0.2 L Glucose 173 H POC Glucose 152 H Calcium Ferritin Total Bilirubin Alkaline Phosphatase Lactate Dehydrogenase Total Creatine Kinase CK-MB (CK-2) Rel Index Troponin T C-Reactive Protein Total Protein Albumin Prealbumin LDL Cholesterol Direct HDL Cholesterol Arterial Blood Glucose 185 H Arterial Blood Ionized Calcium Urine WBC (Auto) 03/01/20 03/01/20 03/01/20 00:00 03:45 04:33 WBC 23.1 H RBC Hgb Hct MCV MCH 27 L RDW 15.3 H Plt Count Lymph % (Auto) Roberts % (Auto) Lymph # (Auto) Roberts # (Auto) Seg Neutrophils % Seg Neuts % (Manual) 92.0 H Lymphocytes % (Manual) 6.0 L Monocytes % (Manual) Basophils % (Manual) Seg Neutrophils # Seg Neutrophils # Man 21.3 H Lymphocytes # (Manual) Monocytes # (Manual) Eosinophils # (Manual) 0.5 H Basophils # (Manual) PT INR D-Dimer ABG pH 7.492 H POC ABG pCO2 POC ABG pO2 ABG pO2 157.1 H ABG HCO3 32.3 H ABG O2 Saturation ABG Base Excess 8.1 H ABG Hemoglobin 13.2 L ABG Oxyhemoglobin ABG Potassium ABG Glucose Oxyhemoglobin Carboxyhemoglobin Sodium Potassium Chloride Carbon Dioxide BUN Creatinine Glucose POC Glucose 109 H Calcium Ferritin Total Bilirubin Alkaline Phosphatase Lactate Dehydrogenase Total Creatine Kinase CK-MB (CK-2) Rel Index Troponin T C-Reactive Protein Total Protein Albumin Prealbumin LDL Cholesterol Direct HDL Cholesterol Arterial Blood Glucose Arterial Blood Ionized Calcium Urine WBC (Auto) 03/01/20 03/01/20 03/01/20 04:33 05:29 12:32 WBC RBC Hgb Hct MCV MCH RDW Plt Count Lymph % (Auto) Roberts % (Auto) Lymph # (Auto) Roberts # (Auto) Seg Neutrophils % Seg Neuts % (Manual) Lymphocytes % (Manual) Monocytes % (Manual) Basophils % (Manual) Seg Neutrophils # Seg Neutrophils # Man Lymphocytes # (Manual) Monocytes # (Manual) Eosinophils # (Manual) Basophils # (Manual) PT INR D-Dimer ABG pH POC ABG pCO2 POC ABG pO2 ABG pO2 ABG HCO3 ABG O2 Saturation ABG Base Excess ABG Hemoglobin ABG Oxyhemoglobin ABG Potassium ABG Glucose Oxyhemoglobin Carboxyhemoglobin Sodium 146 H Potassium Chloride Carbon Dioxide 32 H BUN Creatinine < 0.2 L Glucose 120 H POC Glucose 120 H 128 H Calcium Ferritin Total Bilirubin Alkaline Phosphatase Lactate Dehydrogenase Total Creatine Kinase CK-MB (CK-2) Rel Index Troponin T C-Reactive Protein Total Protein Albumin Prealbumin LDL Cholesterol Direct HDL Cholesterol Arterial Blood Glucose Arterial Blood Ionized Calcium Urine WBC (Auto) 03/01/20 03/01/20 03/02/20 17:38 23:46 06:13 WBC RBC Hgb Hct MCV MCH RDW Plt Count Lymph % (Auto) Roberts % (Auto) Lymph # (Auto) Roberts # (Auto) Seg Neutrophils % Seg Neuts % (Manual) Lymphocytes % (Manual) Monocytes % (Manual) Basophils % (Manual) Seg Neutrophils # Seg Neutrophils # Man Lymphocytes # (Manual) Monocytes # (Manual) Eosinophils # (Manual) Basophils # (Manual) PT INR D-Dimer ABG pH POC ABG pCO2 POC ABG pO2 ABG pO2 ABG HCO3 ABG O2 Saturation ABG Base Excess ABG Hemoglobin ABG Oxyhemoglobin ABG Potassium ABG Glucose Oxyhemoglobin Carboxyhemoglobin Sodium Potassium Chloride Carbon Dioxide BUN Creatinine Glucose POC Glucose 114 H 121 H 120 H Calcium Ferritin Total Bilirubin Alkaline Phosphatase Lactate Dehydrogenase Total Creatine Kinase CK-MB (CK-2) Rel Index Troponin T C-Reactive Protein Total Protein Albumin Prealbumin LDL Cholesterol Direct HDL Cholesterol Arterial Blood Glucose Arterial Blood Ionized Calcium Urine WBC (Auto) 03/02/20 03/02/20 03/03/20 09:47 09:47 10:21 WBC 23.6 H RBC Hgb Hct MCV MCH RDW 15.3 H Plt Count 494 H Lymph % (Auto) Roberts % (Auto) Lymph # (Auto) Roberts # (Auto) Seg Neutrophils % Seg Neuts % (Manual) 85.0 H Lymphocytes % (Manual) 6.0 L Monocytes % (Manual) Basophils % (Manual) Seg Neutrophils # Seg Neutrophils # Man 20.1 H Lymphocytes # (Manual) Monocytes # (Manual) 1.7 H Eosinophils # (Manual) Basophils # (Manual) PT INR D-Dimer ABG pH POC ABG pCO2 POC ABG pO2 ABG pO2 ABG HCO3 ABG O2 Saturation ABG Base Excess ABG Hemoglobin ABG Oxyhemoglobin ABG Potassium 3.3 L ABG Glucose 158 H Oxyhemoglobin Carboxyhemoglobin Sodium Potassium Chloride Carbon Dioxide BUN Creatinine < 0.2 L Glucose 177 H POC Glucose Calcium Ferritin Total Bilirubin Alkaline Phosphatase Lactate Dehydrogenase Total Creatine Kinase CK-MB (CK-2) Rel Index Troponin T C-Reactive Protein Total Protein Albumin Prealbumin LDL Cholesterol Direct HDL Cholesterol Arterial Blood Glucose 158 H Arterial Blood Ionized Calcium Urine WBC (Auto) 03/03/20 03/04/20 03/04/20 21:30 00:00 12:23 WBC RBC Hgb Hct MCV MCH RDW Plt Count Lymph % (Auto) Roberts % (Auto) Lymph # (Auto) Roberts # (Auto) Seg Neutrophils % Seg Neuts % (Manual) Lymphocytes % (Manual) Monocytes % (Manual) Basophils % (Manual) Seg Neutrophils # Seg Neutrophils # Man Lymphocytes # (Manual) Monocytes # (Manual) Eosinophils # (Manual) Basophils # (Manual) PT INR D-Dimer ABG pH 7.328 L POC ABG pCO2 POC ABG pO2 ABG pO2 68.4 L ABG HCO3 35.0 H ABG O2 Saturation 93.9 L ABG Base Excess 6.8 H ABG Hemoglobin 12.7 L ABG Oxyhemoglobin ABG Potassium ABG Glucose Oxyhemoglobin 91.9 L Carboxyhemoglobin Sodium Potassium Chloride Carbon Dioxide BUN Creatinine Glucose POC Glucose 187 H 163 H Calcium Ferritin Total Bilirubin Alkaline Phosphatase Lactate Dehydrogenase Total Creatine Kinase CK-MB (CK-2) Rel Index Troponin T C-Reactive Protein Total Protein Albumin Prealbumin LDL Cholesterol Direct HDL Cholesterol Arterial Blood Glucose Arterial Blood Ionized Calcium Urine WBC (Auto) 03/04/20 03/04/20 03/05/20 18:15 21:30 06:02 WBC RBC Hgb Hct MCV MCH RDW Plt Count Lymph % (Auto) Roberts % (Auto) Lymph # (Auto) Roberts # (Auto) Seg Neutrophils % Seg Neuts % (Manual) Lymphocytes % (Manual) Monocytes % (Manual) Basophils % (Manual) Seg Neutrophils # Seg Neutrophils # Man Lymphocytes # (Manual) Monocytes # (Manual) Eosinophils # (Manual) Basophils # (Manual) PT INR D-Dimer ABG pH 7.297 L POC ABG pCO2 POC ABG pO2 ABG pO2 ABG HCO3 41.0 H ABG O2 Saturation ABG Base Excess 11.0 H ABG Hemoglobin 13.1 L ABG Oxyhemoglobin ABG Potassium ABG Glucose Oxyhemoglobin 94.5 L Carboxyhemoglobin Sodium Potassium Chloride Carbon Dioxide BUN Creatinine Glucose POC Glucose 192 H 127 H Calcium Ferritin Total Bilirubin Alkaline Phosphatase Lactate Dehydrogenase Total Creatine Kinase CK-MB (CK-2) Rel Index Troponin T C-Reactive Protein Total Protein Albumin Prealbumin LDL Cholesterol Direct HDL Cholesterol Arterial Blood Glucose Arterial Blood Ionized Calcium Urine WBC (Auto) 03/05/20 03/05/20 03/06/20 12:09 16:42 00:24 WBC RBC Hgb Hct MCV MCH RDW Plt Count Lymph % (Auto) Roberts % (Auto) Lymph # (Auto) Roberts # (Auto) Seg Neutrophils % Seg Neuts % (Manual) Lymphocytes % (Manual) Monocytes % (Manual) Basophils % (Manual) Seg Neutrophils # Seg Neutrophils # Man Lymphocytes # (Manual) Monocytes # (Manual) Eosinophils # (Manual) Basophils # (Manual) PT INR D-Dimer ABG pH POC ABG pCO2 POC ABG pO2 ABG pO2 ABG HCO3 ABG O2 Saturation ABG Base Excess ABG Hemoglobin ABG Oxyhemoglobin ABG Potassium ABG Glucose Oxyhemoglobin Carboxyhemoglobin Sodium Potassium Chloride Carbon Dioxide BUN Creatinine Glucose POC Glucose 147 H 114 H 134 H Calcium Ferritin Total Bilirubin Alkaline Phosphatase Lactate Dehydrogenase Total Creatine Kinase CK-MB (CK-2) Rel Index Troponin T C-Reactive Protein Total Protein Albumin Prealbumin LDL Cholesterol Direct HDL Cholesterol Arterial Blood Glucose Arterial Blood Ionized Calcium Urine WBC (Auto) 03/06/20 03/06/20 03/06/20 04:34 05:53 06:08 WBC 25.4 H RBC Hgb 10.5 L Hct 32.7 L MCV MCH 27 L RDW 15.3 H Plt Count 634 H Lymph % (Auto) Roberts % (Auto) Lymph # (Auto) Roberts # (Auto) Seg Neutrophils % Seg Neuts % (Manual) 88.0 H Lymphocytes % (Manual) 2.0 L Monocytes % (Manual) 8.0 H Basophils % (Manual) Seg Neutrophils # Seg Neutrophils # Man 22.4 H Lymphocytes # (Manual) 0.5 L Monocytes # (Manual) 2.0 H Eosinophils # (Manual) Basophils # (Manual) PT INR D-Dimer ABG pH POC ABG pCO2 POC ABG pO2 ABG pO2 ABG HCO3 37.9 H ABG O2 Saturation ABG Base Excess 11.4 H ABG Hemoglobin 10.6 L ABG Oxyhemoglobin ABG Potassium ABG Glucose Oxyhemoglobin 94.7 L Carboxyhemoglobin Sodium Potassium Chloride Carbon Dioxide BUN Creatinine Glucose POC Glucose 135 H Calcium Ferritin Total Bilirubin Alkaline Phosphatase Lactate Dehydrogenase Total Creatine Kinase CK-MB (CK-2) Rel Index Troponin T C-Reactive Protein Total Protein Albumin Prealbumin LDL Cholesterol Direct HDL Cholesterol Arterial Blood Glucose Arterial Blood Ionized Calcium Urine WBC (Auto) 03/06/20 03/06/20 03/06/20 06:08 12:19 19:10 WBC RBC Hgb Hct MCV MCH RDW Plt Count Lymph % (Auto) Roberts % (Auto) Lymph # (Auto) Roberts # (Auto) Seg Neutrophils % Seg Neuts % (Manual) Lymphocytes % (Manual) Monocytes % (Manual) Basophils % (Manual) Seg Neutrophils # Seg Neutrophils # Man Lymphocytes # (Manual) Monocytes # (Manual) Eosinophils # (Manual) Basophils # (Manual) PT INR D-Dimer ABG pH POC ABG pCO2 POC ABG pO2 ABG pO2 ABG HCO3 ABG O2 Saturation ABG Base Excess ABG Hemoglobin ABG Oxyhemoglobin ABG Potassium ABG Glucose Oxyhemoglobin Carboxyhemoglobin Sodium 150 H D Potassium Chloride Carbon Dioxide 39 H D BUN 23 H Creatinine < 0.2 L Glucose 144 H POC Glucose 169 H 152 H Calcium Ferritin Total Bilirubin Alkaline Phosphatase Lactate Dehydrogenase Total Creatine Kinase CK-MB (CK-2) Rel Index Troponin T C-Reactive Protein Total Protein Albumin 3.3 L Prealbumin LDL Cholesterol Direct HDL Cholesterol Arterial Blood Glucose Arterial Blood Ionized Calcium Urine WBC (Auto) 03/06/20 03/07/20 03/07/20 23:58 04:25 04:25 WBC 22.1 H RBC Hgb 10.9 L Hct 32.9 L MCV MCH RDW 15.5 H Plt Count 739 H Lymph % (Auto) 7.8 L Roberts % (Auto) Lymph # (Auto) Roberts # (Auto) 1.3 H Seg Neutrophils % 85.5 H Seg Neuts % (Manual) Lymphocytes % (Manual) Monocytes % (Manual) Basophils % (Manual) Seg Neutrophils # 18.9 H Seg Neutrophils # Man Lymphocytes # (Manual) Monocytes # (Manual) Eosinophils # (Manual) Basophils # (Manual) PT INR D-Dimer ABG pH POC ABG pCO2 POC ABG pO2 ABG pO2 ABG HCO3 ABG O2 Saturation ABG Base Excess ABG Hemoglobin ABG Oxyhemoglobin ABG Potassium ABG Glucose Oxyhemoglobin Carboxyhemoglobin Sodium 146 H Potassium Chloride Carbon Dioxide 37 H BUN Creatinine < 0.2 L Glucose 118 H POC Glucose 111 H Calcium Ferritin Total Bilirubin Alkaline Phosphatase Lactate Dehydrogenase Total Creatine Kinase CK-MB (CK-2) Rel Index Troponin T C-Reactive Protein Total Protein Albumin 3.7 L Prealbumin LDL Cholesterol Direct HDL Cholesterol Arterial Blood Glucose Arterial Blood Ionized Calcium Urine WBC (Auto) 03/07/20 03/07/20 03/07/20 05:20 17:45 23:32 WBC RBC Hgb Hct MCV MCH RDW Plt Count Lymph % (Auto) Roberts % (Auto) Lymph # (Auto) Roberts # (Auto) Seg Neutrophils % Seg Neuts % (Manual) Lymphocytes % (Manual) Monocytes % (Manual) Basophils % (Manual) Seg Neutrophils # Seg Neutrophils # Man Lymphocytes # (Manual) Monocytes # (Manual) Eosinophils # (Manual) Basophils # (Manual) PT INR D-Dimer ABG pH POC ABG pCO2 POC ABG pO2 ABG pO2 ABG HCO3 ABG O2 Saturation ABG Base Excess ABG Hemoglobin ABG Oxyhemoglobin ABG Potassium ABG Glucose Oxyhemoglobin Carboxyhemoglobin Sodium Potassium Chloride Carbon Dioxide BUN Creatinine Glucose POC Glucose 113 H 124 H 210 H Calcium Ferritin Total Bilirubin Alkaline Phosphatase Lactate Dehydrogenase Total Creatine Kinase CK-MB (CK-2) Rel Index Troponin T C-Reactive Protein Total Protein Albumin Prealbumin LDL Cholesterol Direct HDL Cholesterol Arterial Blood Glucose Arterial Blood Ionized Calcium Urine WBC (Auto) 03/08/20 03/08/20 03/08/20 05:35 06:43 06:43 WBC 28.9 H RBC 3.53 L Hgb 9.7 L Hct 30.3 L MCV MCH RDW 15.6 H Plt Count 578 H Lymph % (Auto) Roberts % (Auto) Lymph # (Auto) Roberts # (Auto) Seg Neutrophils % Seg Neuts % (Manual) 93.0 H Lymphocytes % (Manual) 4.0 L Monocytes % (Manual) Basophils % (Manual) Seg Neutrophils # Seg Neutrophils # Man 26.9 H Lymphocytes # (Manual) Monocytes # (Manual) Eosinophils # (Manual) Basophils # (Manual) PT INR D-Dimer ABG pH POC ABG pCO2 POC ABG pO2 ABG pO2 ABG HCO3 ABG O2 Saturation ABG Base Excess ABG Hemoglobin ABG Oxyhemoglobin ABG Potassium ABG Glucose Oxyhemoglobin Carboxyhemoglobin Sodium 146 H Potassium Chloride Carbon Dioxide 35 H BUN 34 H Creatinine 0.3 L D Glucose 125 H POC Glucose 147 H Calcium Ferritin Total Bilirubin Alkaline Phosphatase Lactate Dehydrogenase Total Creatine Kinase CK-MB (CK-2) Rel Index Troponin T C-Reactive Protein Total Protein 5.9 L Albumin 3.2 L Prealbumin LDL Cholesterol Direct HDL Cholesterol Arterial Blood Glucose Arterial Blood Ionized Calcium Urine WBC (Auto) 03/08/20 03/08/20 03/08/20 08:57 11:14 12:34 WBC RBC Hgb Hct MCV MCH RDW Plt Count Lymph % (Auto) Roberts % (Auto) Lymph # (Auto) Roberts # (Auto) Seg Neutrophils % Seg Neuts % (Manual) Lymphocytes % (Manual) Monocytes % (Manual) Basophils % (Manual) Seg Neutrophils # Seg Neutrophils # Man Lymphocytes # (Manual) Monocytes # (Manual) Eosinophils # (Manual) Basophils # (Manual) PT INR D-Dimer ABG pH POC ABG pCO2 63.1 H POC ABG pO2 ABG pO2 ABG HCO3 ABG O2 Saturation ABG Base Excess ABG Hemoglobin 10.9 L ABG Oxyhemoglobin ABG Potassium ABG Glucose 176 H Oxyhemoglobin Carboxyhemoglobin Sodium Potassium Chloride Carbon Dioxide BUN Creatinine Glucose POC Glucose 171 H Calcium Ferritin Total Bilirubin Alkaline Phosphatase Lactate Dehydrogenase Total Creatine Kinase CK-MB (CK-2) Rel Index Troponin T C-Reactive Protein Total Protein Albumin Prealbumin LDL Cholesterol Direct HDL Cholesterol Arterial Blood Glucose 176 H Arterial Blood Ionized Calcium 4.5 L Urine WBC (Auto) 10.0 H 03/08/20 03/08/20 03/09/20 18:02 23:43 05:49 WBC RBC Hgb Hct MCV MCH RDW Plt Count Lymph % (Auto) Roberts % (Auto) Lymph # (Auto) Roberts # (Auto) Seg Neutrophils % Seg Neuts % (Manual) Lymphocytes % (Manual) Monocytes % (Manual) Basophils % (Manual) Seg Neutrophils # Seg Neutrophils # Man Lymphocytes # (Manual) Monocytes # (Manual) Eosinophils # (Manual) Basophils # (Manual) PT INR D-Dimer ABG pH POC ABG pCO2 POC ABG pO2 ABG pO2 ABG HCO3 ABG O2 Saturation ABG Base Excess ABG Hemoglobin ABG Oxyhemoglobin ABG Potassium ABG Glucose Oxyhemoglobin Carboxyhemoglobin Sodium Potassium Chloride Carbon Dioxide BUN Creatinine Glucose POC Glucose 157 H 134 H 163 H Calcium Ferritin Total Bilirubin Alkaline Phosphatase Lactate Dehydrogenase Total Creatine Kinase CK-MB (CK-2) Rel Index Troponin T C-Reactive Protein Total Protein Albumin Prealbumin LDL Cholesterol Direct HDL Cholesterol Arterial Blood Glucose Arterial Blood Ionized Calcium Urine WBC (Auto) 03/09/20 03/09/20 03/09/20 08:35 08:35 12:11 WBC 23.4 H RBC 3.36 L Hgb 9.3 L Hct 28.8 L MCV MCH RDW 15.9 H Plt Count 521 H Lymph % (Auto) Roberts % (Auto) Lymph # (Auto) Roberts # (Auto) Seg Neutrophils % Seg Neuts % (Manual) 87.0 H Lymphocytes % (Manual) 4.0 L Monocytes % (Manual) 9.0 H Basophils % (Manual) Seg Neutrophils # Seg Neutrophils # Man 20.4 H Lymphocytes # (Manual) 0.9 L Monocytes # (Manual) 2.1 H Eosinophils # (Manual) Basophils # (Manual) PT INR D-Dimer ABG pH POC ABG pCO2 POC ABG pO2 ABG pO2 ABG HCO3 ABG O2 Saturation ABG Base Excess ABG Hemoglobin ABG Oxyhemoglobin ABG Potassium ABG Glucose Oxyhemoglobin Carboxyhemoglobin Sodium 147 H Potassium Chloride Carbon Dioxide 37 H BUN 63 H Creatinine Glucose 154 H POC Glucose 128 H Calcium Ferritin Total Bilirubin Alkaline Phosphatase Lactate Dehydrogenase Total Creatine Kinase CK-MB (CK-2) Rel Index Troponin T C-Reactive Protein Total Protein Albumin Prealbumin LDL Cholesterol Direct HDL Cholesterol Arterial Blood Glucose Arterial Blood Ionized Calcium Urine WBC (Auto) 03/09/20 03/10/20 03/10/20 17:51 00:25 05:41 WBC RBC Hgb Hct MCV MCH RDW Plt Count Lymph % (Auto) Roberts % (Auto) Lymph # (Auto) Roberts # (Auto) Seg Neutrophils % Seg Neuts % (Manual) Lymphocytes % (Manual) Monocytes % (Manual) Basophils % (Manual) Seg Neutrophils # Seg Neutrophils # Man Lymphocytes # (Manual) Monocytes # (Manual) Eosinophils # (Manual) Basophils # (Manual) PT INR D-Dimer ABG pH POC ABG pCO2 POC ABG pO2 ABG pO2 ABG HCO3 ABG O2 Saturation ABG Base Excess ABG Hemoglobin ABG Oxyhemoglobin ABG Potassium ABG Glucose Oxyhemoglobin Carboxyhemoglobin Sodium Potassium Chloride Carbon Dioxide BUN Creatinine Glucose POC Glucose 127 H 128 H 153 H Calcium Ferritin Total Bilirubin Alkaline Phosphatase Lactate Dehydrogenase Total Creatine Kinase CK-MB (CK-2) Rel Index Troponin T C-Reactive Protein Total Protein Albumin Prealbumin LDL Cholesterol Direct HDL Cholesterol Arterial Blood Glucose Arterial Blood Ionized Calcium Urine WBC (Auto) 03/10/20 03/10/20 03/10/20 06:14 06:14 12:02 WBC 18.3 H RBC 3.45 L Hgb 9.5 L Hct 29.5 L MCV MCH RDW 16.1 H Plt Count 494 H Lymph % (Auto) Roberts % (Auto) Lymph # (Auto) Roberts # (Auto) Seg Neutrophils % Seg Neuts % (Manual) 95.0 H Lymphocytes % (Manual) 1.0 L Monocytes % (Manual) Basophils % (Manual) Seg Neutrophils # Seg Neutrophils # Man 17.4 H Lymphocytes # (Manual) 0.2 L Monocytes # (Manual) Eosinophils # (Manual) Basophils # (Manual) PT INR D-Dimer ABG pH POC ABG pCO2 POC ABG pO2 ABG pO2 ABG HCO3 ABG O2 Saturation ABG Base Excess ABG Hemoglobin ABG Oxyhemoglobin ABG Potassium ABG Glucose Oxyhemoglobin Carboxyhemoglobin Sodium 149 H Potassium Chloride Carbon Dioxide 35 H BUN 34 H Creatinine 0.2 L D Glucose 177 H POC Glucose 151 H Calcium Ferritin Total Bilirubin Alkaline Phosphatase Lactate Dehydrogenase Total Creatine Kinase CK-MB (CK-2) Rel Index Troponin T C-Reactive Protein Total Protein Albumin Prealbumin LDL Cholesterol Direct HDL Cholesterol Arterial Blood Glucose Arterial Blood Ionized Calcium Urine WBC (Auto) 03/10/20 03/10/20 03/11/20 17:41 23:53 05:02 WBC RBC Hgb Hct MCV MCH RDW Plt Count Lymph % (Auto) Roberts % (Auto) Lymph # (Auto) Roberts # (Auto) Seg Neutrophils % Seg Neuts % (Manual) Lymphocytes % (Manual) Monocytes % (Manual) Basophils % (Manual) Seg Neutrophils # Seg Neutrophils # Man Lymphocytes # (Manual) Monocytes # (Manual) Eosinophils # (Manual) Basophils # (Manual) PT INR D-Dimer ABG pH POC ABG pCO2 POC ABG pO2 ABG pO2 ABG HCO3 ABG O2 Saturation ABG Base Excess ABG Hemoglobin ABG Oxyhemoglobin ABG Potassium ABG Glucose Oxyhemoglobin Carboxyhemoglobin Sodium Potassium Chloride Carbon Dioxide BUN Creatinine Glucose POC Glucose 168 H 142 H 146 H Calcium Ferritin Total Bilirubin Alkaline Phosphatase Lactate Dehydrogenase Total Creatine Kinase CK-MB (CK-2) Rel Index Troponin T C-Reactive Protein Total Protein Albumin Prealbumin LDL Cholesterol Direct HDL Cholesterol Arterial Blood Glucose Arterial Blood Ionized Calcium Urine WBC (Auto) 03/11/20 03/11/20 03/11/20 11:30 14:01 14:01 WBC 19.7 H RBC 3.04 L Hgb 8.7 L Hct 25.8 L MCV MCH RDW 15.6 H Plt Count Lymph % (Auto) Roberts % (Auto) Lymph # (Auto) Roberts # (Auto) Seg Neutrophils % Seg Neuts % (Manual) Lymphocytes % (Manual) Monocytes % (Manual) Basophils % (Manual) Seg Neutrophils # Seg Neutrophils # Man Lymphocytes # (Manual) Monocytes # (Manual) Eosinophils # (Manual) Basophils # (Manual) PT INR D-Dimer ABG pH POC ABG pCO2 POC ABG pO2 ABG pO2 ABG HCO3 ABG O2 Saturation ABG Base Excess ABG Hemoglobin ABG Oxyhemoglobin ABG Potassium ABG Glucose Oxyhemoglobin Carboxyhemoglobin Sodium 151 H Potassium Chloride Carbon Dioxide 37 H BUN Creatinine < 0.2 L Glucose 171 H POC Glucose 248 H Calcium Ferritin Total Bilirubin Alkaline Phosphatase Lactate Dehydrogenase Total Creatine Kinase CK-MB (CK-2) Rel Index Troponin T C-Reactive Protein Total Protein Albumin Prealbumin LDL Cholesterol Direct HDL Cholesterol Arterial Blood Glucose Arterial Blood Ionized Calcium Urine WBC (Auto) 03/11/20 03/11/20 03/12/20 17:09 23:52 04:39 WBC 19.9 H RBC 3.16 L Hgb 8.9 L Hct 27.5 L MCV MCH RDW 15.7 H Plt Count Lymph % (Auto) 6.8 L Roberts % (Auto) Lymph # (Auto) Roberts # (Auto) 1.2 H Seg Neutrophils % 86.0 H Seg Neuts % (Manual) Lymphocytes % (Manual) Monocytes % (Manual) Basophils % (Manual) Seg Neutrophils # 17.1 H Seg Neutrophils # Man Lymphocytes # (Manual) Monocytes # (Manual) Eosinophils # (Manual) Basophils # (Manual) PT INR D-Dimer ABG pH POC ABG pCO2 POC ABG pO2 ABG pO2 ABG HCO3 ABG O2 Saturation ABG Base Excess ABG Hemoglobin ABG Oxyhemoglobin ABG Potassium ABG Glucose Oxyhemoglobin Carboxyhemoglobin Sodium Potassium Chloride Carbon Dioxide BUN Creatinine Glucose POC Glucose 124 H 131 H Calcium Ferritin Total Bilirubin Alkaline Phosphatase Lactate Dehydrogenase Total Creatine Kinase CK-MB (CK-2) Rel Index Troponin T C-Reactive Protein Total Protein Albumin Prealbumin LDL Cholesterol Direct HDL Cholesterol Arterial Blood Glucose Arterial Blood Ionized Calcium Urine WBC (Auto) 03/12/20 03/12/20 03/12/20 04:39 05:28 11:34 WBC RBC Hgb Hct MCV MCH RDW Plt Count Lymph % (Auto) Roberts % (Auto) Lymph # (Auto) Roberts # (Auto) Seg Neutrophils % Seg Neuts % (Manual) Lymphocytes % (Manual) Monocytes % (Manual) Basophils % (Manual) Seg Neutrophils # Seg Neutrophils # Man Lymphocytes # (Manual) Monocytes # (Manual) Eosinophils # (Manual) Basophils # (Manual) PT INR D-Dimer ABG pH POC ABG pCO2 POC ABG pO2 ABG pO2 ABG HCO3 ABG O2 Saturation ABG Base Excess ABG Hemoglobin ABG Oxyhemoglobin ABG Potassium ABG Glucose Oxyhemoglobin Carboxyhemoglobin Sodium 147 H Potassium Chloride Carbon Dioxide 40 H BUN Creatinine < 0.2 L Glucose 175 H POC Glucose 167 H 144 H Calcium Ferritin Total Bilirubin Alkaline Phosphatase Lactate Dehydrogenase Total Creatine Kinase CK-MB (CK-2) Rel Index Troponin T C-Reactive Protein Total Protein Albumin Prealbumin LDL Cholesterol Direct HDL Cholesterol Arterial Blood Glucose Arterial Blood Ionized Calcium Urine WBC (Auto) 03/12/20 03/12/20 03/13/20 17:32 23:57 05:57 WBC RBC Hgb Hct MCV MCH RDW Plt Count Lymph % (Auto) Roberts % (Auto) Lymph # (Auto) Roberts # (Auto) Seg Neutrophils % Seg Neuts % (Manual) Lymphocytes % (Manual) Monocytes % (Manual) Basophils % (Manual) Seg Neutrophils # Seg Neutrophils # Man Lymphocytes # (Manual) Monocytes # (Manual) Eosinophils # (Manual) Basophils # (Manual) PT INR D-Dimer ABG pH POC ABG pCO2 POC ABG pO2 ABG pO2 ABG HCO3 ABG O2 Saturation ABG Base Excess ABG Hemoglobin ABG Oxyhemoglobin ABG Potassium ABG Glucose Oxyhemoglobin Carboxyhemoglobin Sodium Potassium Chloride Carbon Dioxide BUN Creatinine Glucose POC Glucose 141 H 137 H 161 H Calcium Ferritin Total Bilirubin Alkaline Phosphatase Lactate Dehydrogenase Total Creatine Kinase CK-MB (CK-2) Rel Index Troponin T C-Reactive Protein Total Protein Albumin Prealbumin LDL Cholesterol Direct HDL Cholesterol Arterial Blood Glucose Arterial Blood Ionized Calcium Urine WBC (Auto) 03/13/20 03/13/20 03/13/20 12:28 14:14 18:39 WBC RBC Hgb Hct MCV MCH RDW Plt Count Lymph % (Auto) Roberts % (Auto) Lymph # (Auto) Roberts # (Auto) Seg Neutrophils % Seg Neuts % (Manual) Lymphocytes % (Manual) Monocytes % (Manual) Basophils % (Manual) Seg Neutrophils # Seg Neutrophils # Man Lymphocytes # (Manual) Monocytes # (Manual) Eosinophils # (Manual) Basophils # (Manual) PT INR D-Dimer ABG pH POC ABG pCO2 POC ABG pO2 ABG pO2 ABG HCO3 ABG O2 Saturation ABG Base Excess ABG Hemoglobin ABG Oxyhemoglobin ABG Potassium ABG Glucose Oxyhemoglobin Carboxyhemoglobin Sodium Potassium Chloride Carbon Dioxide 39 H BUN Creatinine < 0.2 L Glucose 129 H POC Glucose 130 H 125 H Calcium Ferritin Total Bilirubin Alkaline Phosphatase Lactate Dehydrogenase Total Creatine Kinase CK-MB (CK-2) Rel Index Troponin T C-Reactive Protein Total Protein Albumin Prealbumin LDL Cholesterol Direct HDL Cholesterol Arterial Blood Glucose Arterial Blood Ionized Calcium Urine WBC (Auto) 03/13/20 03/14/20 03/14/20 23:33 05:24 08:07 WBC 16.8 H RBC 2.81 L Hgb 7.9 L Hct 23.9 L MCV MCH RDW 15.9 H Plt Count Lymph % (Auto) Roberts % (Auto) Lymph # (Auto) Roberts # (Auto) Seg Neutrophils % Seg Neuts % (Manual) 84.0 H Lymphocytes % (Manual) 10.0 L Monocytes % (Manual) Basophils % (Manual) Seg Neutrophils # Seg Neutrophils # Man 14.1 H Lymphocytes # (Manual) Monocytes # (Manual) Eosinophils # (Manual) Basophils # (Manual) PT INR D-Dimer ABG pH POC ABG pCO2 POC ABG pO2 ABG pO2 ABG HCO3 ABG O2 Saturation ABG Base Excess ABG Hemoglobin ABG Oxyhemoglobin ABG Potassium ABG Glucose Oxyhemoglobin Carboxyhemoglobin Sodium Potassium Chloride Carbon Dioxide BUN Creatinine Glucose POC Glucose 146 H 125 H Calcium Ferritin Total Bilirubin Alkaline Phosphatase Lactate Dehydrogenase Total Creatine Kinase CK-MB (CK-2) Rel Index Troponin T C-Reactive Protein Total Protein Albumin Prealbumin LDL Cholesterol Direct HDL Cholesterol Arterial Blood Glucose Arterial Blood Ionized Calcium Urine WBC (Auto) 03/14/20 03/14/20 03/14/20 08:07 12:21 18:26 WBC RBC Hgb Hct MCV MCH RDW Plt Count Lymph % (Auto) Roberts % (Auto) Lymph # (Auto) Roberts # (Auto) Seg Neutrophils % Seg Neuts % (Manual) Lymphocytes % (Manual) Monocytes % (Manual) Basophils % (Manual) Seg Neutrophils # Seg Neutrophils # Man Lymphocytes # (Manual) Monocytes # (Manual) Eosinophils # (Manual) Basophils # (Manual) PT INR D-Dimer ABG pH POC ABG pCO2 POC ABG pO2 ABG pO2 ABG HCO3 ABG O2 Saturation ABG Base Excess ABG Hemoglobin ABG Oxyhemoglobin ABG Potassium ABG Glucose Oxyhemoglobin Carboxyhemoglobin Sodium Potassium Chloride 97.0 L Carbon Dioxide 37 H BUN Creatinine < 0.2 L Glucose 129 H POC Glucose 109 H 142 H Calcium 8.3 L Ferritin Total Bilirubin Alkaline Phosphatase Lactate Dehydrogenase Total Creatine Kinase CK-MB (CK-2) Rel Index Troponin T C-Reactive Protein Total Protein Albumin Prealbumin LDL Cholesterol Direct HDL Cholesterol Arterial Blood Glucose Arterial Blood Ionized Calcium Urine WBC (Auto) 03/14/20 03/15/20 03/15/20 23:57 05:46 08:06 WBC 19.7 H RBC 3.29 L Hgb 9.1 L Hct 28.0 L MCV MCH RDW 15.9 H Plt Count Lymph % (Auto) Roberts % (Auto) Lymph # (Auto) Roberts # (Auto) Seg Neutrophils % Seg Neuts % (Manual) Lymphocytes % (Manual) Monocytes % (Manual) Basophils % (Manual) Seg Neutrophils # Seg Neutrophils # Man Lymphocytes # (Manual) Monocytes # (Manual) Eosinophils # (Manual) Basophils # (Manual) PT INR D-Dimer ABG pH POC ABG pCO2 POC ABG pO2 ABG pO2 ABG HCO3 ABG O2 Saturation ABG Base Excess ABG Hemoglobin ABG Oxyhemoglobin ABG Potassium ABG Glucose Oxyhemoglobin Carboxyhemoglobin Sodium Potassium Chloride Carbon Dioxide BUN Creatinine Glucose POC Glucose 157 H 118 H Calcium Ferritin Total Bilirubin Alkaline Phosphatase Lactate Dehydrogenase Total Creatine Kinase CK-MB (CK-2) Rel Index Troponin T C-Reactive Protein Total Protein Albumin Prealbumin LDL Cholesterol Direct HDL Cholesterol Arterial Blood Glucose Arterial Blood Ionized Calcium Urine WBC (Auto) 03/15/20 03/15/20 03/15/20 08:06 12:44 18:09 WBC RBC Hgb Hct MCV MCH RDW Plt Count Lymph % (Auto) Roberts % (Auto) Lymph # (Auto) Roberts # (Auto) Seg Neutrophils % Seg Neuts % (Manual) Lymphocytes % (Manual) Monocytes % (Manual) Basophils % (Manual) Seg Neutrophils # Seg Neutrophils # Man Lymphocytes # (Manual) Monocytes # (Manual) Eosinophils # (Manual) Basophils # (Manual) PT INR D-Dimer ABG pH POC ABG pCO2 POC ABG pO2 ABG pO2 ABG HCO3 ABG O2 Saturation ABG Base Excess ABG Hemoglobin ABG Oxyhemoglobin ABG Potassium ABG Glucose Oxyhemoglobin Carboxyhemoglobin Sodium 136 L Potassium Chloride 93.6 L Carbon Dioxide 37 H BUN Creatinine < 0.2 L Glucose 132 H POC Glucose 151 H 164 H Calcium Ferritin Total Bilirubin Alkaline Phosphatase Lactate Dehydrogenase Total Creatine Kinase CK-MB (CK-2) Rel Index Troponin T C-Reactive Protein Total Protein Albumin Prealbumin LDL Cholesterol Direct HDL Cholesterol Arterial Blood Glucose Arterial Blood Ionized Calcium Urine WBC (Auto) 03/15/20 03/16/20 03/16/20 23:26 05:39 11:58 WBC RBC Hgb Hct MCV MCH RDW Plt Count Lymph % (Auto) Roberts % (Auto) Lymph # (Auto) Roberts # (Auto) Seg Neutrophils % Seg Neuts % (Manual) Lymphocytes % (Manual) Monocytes % (Manual) Basophils % (Manual) Seg Neutrophils # Seg Neutrophils # Man Lymphocytes # (Manual) Monocytes # (Manual) Eosinophils # (Manual) Basophils # (Manual) PT INR D-Dimer ABG pH POC ABG pCO2 POC ABG pO2 ABG pO2 ABG HCO3 ABG O2 Saturation ABG Base Excess ABG Hemoglobin ABG Oxyhemoglobin ABG Potassium ABG Glucose Oxyhemoglobin Carboxyhemoglobin Sodium Potassium Chloride Carbon Dioxide BUN Creatinine Glucose POC Glucose 136 H 116 H 109 H Calcium Ferritin Total Bilirubin Alkaline Phosphatase Lactate Dehydrogenase Total Creatine Kinase CK-MB (CK-2) Rel Index Troponin T C-Reactive Protein Total Protein Albumin Prealbumin LDL Cholesterol Direct HDL Cholesterol Arterial Blood Glucose Arterial Blood Ionized Calcium Urine WBC (Auto) 03/16/20 03/17/20 03/17/20 23:56 04:40 04:40 WBC 18.0 H RBC 3.33 L Hgb 9.5 L Hct 28.8 L MCV MCH RDW 16.4 H Plt Count 499 H Lymph % (Auto) Roberts % (Auto) Lymph # (Auto) Roberts # (Auto) Seg Neutrophils % Seg Neuts % (Manual) 82.0 H Lymphocytes % (Manual) 8.0 L Monocytes % (Manual) Basophils % (Manual) Seg Neutrophils # Seg Neutrophils # Man 14.8 H Lymphocytes # (Manual) Monocytes # (Manual) 1.3 H Eosinophils # (Manual) Basophils # (Manual) 0.2 H PT INR D-Dimer ABG pH POC ABG pCO2 POC ABG pO2 ABG pO2 ABG HCO3 ABG O2 Saturation ABG Base Excess ABG Hemoglobin ABG Oxyhemoglobin ABG Potassium ABG Glucose Oxyhemoglobin Carboxyhemoglobin Sodium Potassium Chloride 97.7 L Carbon Dioxide 32 H BUN Creatinine < 0.2 L Glucose 114 H POC Glucose 131 H Calcium Ferritin Total Bilirubin Alkaline Phosphatase Lactate Dehydrogenase Total Creatine Kinase CK-MB (CK-2) Rel Index Troponin T C-Reactive Protein Total Protein Albumin Prealbumin LDL Cholesterol Direct HDL Cholesterol Arterial Blood Glucose Arterial Blood Ionized Calcium Urine WBC (Auto) 03/18/20 03/18/20 03/18/20 00:21 05:21 11:55 WBC RBC Hgb Hct MCV MCH RDW Plt Count Lymph % (Auto) Roberts % (Auto) Lymph # (Auto) Roberts # (Auto) Seg Neutrophils % Seg Neuts % (Manual) Lymphocytes % (Manual) Monocytes % (Manual) Basophils % (Manual) Seg Neutrophils # Seg Neutrophils # Man Lymphocytes # (Manual) Monocytes # (Manual) Eosinophils # (Manual) Basophils # (Manual) PT INR D-Dimer ABG pH POC ABG pCO2 POC ABG pO2 ABG pO2 ABG HCO3 ABG O2 Saturation ABG Base Excess ABG Hemoglobin ABG Oxyhemoglobin ABG Potassium ABG Glucose Oxyhemoglobin Carboxyhemoglobin Sodium Potassium Chloride Carbon Dioxide BUN Creatinine Glucose POC Glucose 124 H 138 H 119 H Calcium Ferritin Total Bilirubin Alkaline Phosphatase Lactate Dehydrogenase Total Creatine Kinase CK-MB (CK-2) Rel Index Troponin T C-Reactive Protein Total Protein Albumin Prealbumin LDL Cholesterol Direct HDL Cholesterol Arterial Blood Glucose Arterial Blood Ionized Calcium Urine WBC (Auto) 03/18/20 03/18/20 03/19/20 17:03 23:58 05:24 WBC RBC Hgb Hct MCV MCH RDW Plt Count Lymph % (Auto) Roberts % (Auto) Lymph # (Auto) Roberts # (Auto) Seg Neutrophils % Seg Neuts % (Manual) Lymphocytes % (Manual) Monocytes % (Manual) Basophils % (Manual) Seg Neutrophils # Seg Neutrophils # Man Lymphocytes # (Manual) Monocytes # (Manual) Eosinophils # (Manual) Basophils # (Manual) PT INR D-Dimer ABG pH POC ABG pCO2 POC ABG pO2 ABG pO2 ABG HCO3 ABG O2 Saturation ABG Base Excess ABG Hemoglobin ABG Oxyhemoglobin ABG Potassium ABG Glucose Oxyhemoglobin Carboxyhemoglobin Sodium Potassium Chloride Carbon Dioxide BUN Creatinine Glucose POC Glucose 128 H 128 H 115 H Calcium Ferritin Total Bilirubin Alkaline Phosphatase Lactate Dehydrogenase Total Creatine Kinase CK-MB (CK-2) Rel Index Troponin T C-Reactive Protein Total Protein Albumin Prealbumin LDL Cholesterol Direct HDL Cholesterol Arterial Blood Glucose Arterial Blood Ionized Calcium Urine WBC (Auto) 03/19/20 03/19/20 03/19/20 08:05 08:05 11:56 WBC 16.8 H RBC 3.36 L Hgb 9.4 L Hct 28.8 L MCV MCH RDW 17.4 H Plt Count 567 H Lymph % (Auto) 7.8 L Roberts % (Auto) Lymph # (Auto) Roberts # (Auto) 1.2 H Seg Neutrophils % 83.5 H Seg Neuts % (Manual) Lymphocytes % (Manual) Monocytes % (Manual) Basophils % (Manual) Seg Neutrophils # 14.1 H Seg Neutrophils # Man Lymphocytes # (Manual) Monocytes # (Manual) Eosinophils # (Manual) Basophils # (Manual) PT INR D-Dimer ABG pH POC ABG pCO2 POC ABG pO2 ABG pO2 ABG HCO3 ABG O2 Saturation ABG Base Excess ABG Hemoglobin ABG Oxyhemoglobin ABG Potassium ABG Glucose Oxyhemoglobin Carboxyhemoglobin Sodium Potassium Chloride Carbon Dioxide 36 H BUN Creatinine < 0.2 L Glucose 135 H POC Glucose 128 H Calcium Ferritin Total Bilirubin Alkaline Phosphatase Lactate Dehydrogenase Total Creatine Kinase CK-MB (CK-2) Rel Index Troponin T C-Reactive Protein Total Protein Albumin Prealbumin LDL Cholesterol Direct HDL Cholesterol Arterial Blood Glucose Arterial Blood Ionized Calcium Urine WBC (Auto) 03/19/20 03/20/20 03/20/20 23:59 05:12 16:52 WBC RBC Hgb Hct MCV MCH RDW Plt Count Lymph % (Auto) Roberts % (Auto) Lymph # (Auto) Roberts # (Auto) Seg Neutrophils % Seg Neuts % (Manual) Lymphocytes % (Manual) Monocytes % (Manual) Basophils % (Manual) Seg Neutrophils # Seg Neutrophils # Man Lymphocytes # (Manual) Monocytes # (Manual) Eosinophils # (Manual) Basophils # (Manual) PT INR D-Dimer ABG pH POC ABG pCO2 POC ABG pO2 ABG pO2 ABG HCO3 ABG O2 Saturation ABG Base Excess ABG Hemoglobin ABG Oxyhemoglobin ABG Potassium ABG Glucose Oxyhemoglobin Carboxyhemoglobin Sodium Potassium Chloride Carbon Dioxide BUN Creatinine Glucose POC Glucose 120 H 131 H 124 H Calcium Ferritin Total Bilirubin Alkaline Phosphatase Lactate Dehydrogenase Total Creatine Kinase CK-MB (CK-2) Rel Index Troponin T C-Reactive Protein Total Protein Albumin Prealbumin LDL Cholesterol Direct HDL Cholesterol Arterial Blood Glucose Arterial Blood Ionized Calcium Urine WBC (Auto) 03/20/20 03/21/20 03/21/20 23:35 04:50 07:35 WBC 15.2 H RBC 3.39 L Hgb 9.4 L Hct 29.4 L MCV MCH RDW 17.6 H Plt Count 518 H Lymph % (Auto) Roberts % (Auto) Lymph # (Auto) Roberts # (Auto) Seg Neutrophils % Seg Neuts % (Manual) 83.0 H Lymphocytes % (Manual) 10.0 L Monocytes % (Manual) Basophils % (Manual) 2.0 H Seg Neutrophils # Seg Neutrophils # Man 12.6 H Lymphocytes # (Manual) Monocytes # (Manual) Eosinophils # (Manual) Basophils # (Manual) 0.3 H PT INR D-Dimer ABG pH POC ABG pCO2 POC ABG pO2 ABG pO2 ABG HCO3 ABG O2 Saturation ABG Base Excess ABG Hemoglobin ABG Oxyhemoglobin ABG Potassium ABG Glucose Oxyhemoglobin Carboxyhemoglobin Sodium Potassium Chloride Carbon Dioxide BUN Creatinine Glucose POC Glucose 125 H 127 H Calcium Ferritin Total Bilirubin Alkaline Phosphatase Lactate Dehydrogenase Total Creatine Kinase CK-MB (CK-2) Rel Index Troponin T C-Reactive Protein Total Protein Albumin Prealbumin LDL Cholesterol Direct HDL Cholesterol Arterial Blood Glucose Arterial Blood Ionized Calcium Urine WBC (Auto) 03/21/20 03/21/20 03/21/20 07:35 11:45 17:22 WBC RBC Hgb Hct MCV MCH RDW Plt Count Lymph % (Auto) Roberts % (Auto) Lymph # (Auto) Roberts # (Auto) Seg Neutrophils % Seg Neuts % (Manual) Lymphocytes % (Manual) Monocytes % (Manual) Basophils % (Manual) Seg Neutrophils # Seg Neutrophils # Man Lymphocytes # (Manual) Monocytes # (Manual) Eosinophils # (Manual) Basophils # (Manual) PT INR D-Dimer ABG pH POC ABG pCO2 POC ABG pO2 ABG pO2 ABG HCO3 ABG O2 Saturation ABG Base Excess ABG Hemoglobin ABG Oxyhemoglobin ABG Potassium ABG Glucose Oxyhemoglobin Carboxyhemoglobin Sodium 136 L Potassium Chloride 97.7 L Carbon Dioxide 32 H BUN Creatinine < 0.2 L Glucose 103 H POC Glucose 126 H 120 H Calcium Ferritin Total Bilirubin Alkaline Phosphatase Lactate Dehydrogenase Total Creatine Kinase CK-MB (CK-2) Rel Index Troponin T C-Reactive Protein Total Protein Albumin Prealbumin LDL Cholesterol Direct HDL Cholesterol Arterial Blood Glucose Arterial Blood Ionized Calcium Urine WBC (Auto) 03/22/20 03/22/20 03/22/20 05:09 06:34 06:34 WBC 17.5 H RBC 3.52 L Hgb 10.0 L Hct 30.7 L MCV MCH RDW 17.5 H Plt Count 499 H Lymph % (Auto) Roberts % (Auto) Lymph # (Auto) Roberts # (Auto) Seg Neutrophils % Seg Neuts % (Manual) 80.0 H Lymphocytes % (Manual) 10.0 L Monocytes % (Manual) Basophils % (Manual) Seg Neutrophils # Seg Neutrophils # Man 14.0 H Lymphocytes # (Manual) Monocytes # (Manual) Eosinophils # (Manual) Basophils # (Manual) PT INR D-Dimer ABG pH POC ABG pCO2 POC ABG pO2 ABG pO2 ABG HCO3 ABG O2 Saturation ABG Base Excess ABG Hemoglobin ABG Oxyhemoglobin ABG Potassium ABG Glucose Oxyhemoglobin Carboxyhemoglobin Sodium Potassium Chloride 96.6 L Carbon Dioxide 38 H BUN Creatinine < 0.2 L Glucose 139 H POC Glucose 125 H Calcium Ferritin Total Bilirubin Alkaline Phosphatase Lactate Dehydrogenase Total Creatine Kinase CK-MB (CK-2) Rel Index Troponin T C-Reactive Protein Total Protein Albumin Prealbumin LDL Cholesterol Direct HDL Cholesterol Arterial Blood Glucose Arterial Blood Ionized Calcium Urine WBC (Auto) 03/22/20 03/22/20 03/22/20 11:45 18:00 23:32 WBC RBC Hgb Hct MCV MCH RDW Plt Count Lymph % (Auto) Roberts % (Auto) Lymph # (Auto) Roberts # (Auto) Seg Neutrophils % Seg Neuts % (Manual) Lymphocytes % (Manual) Monocytes % (Manual) Basophils % (Manual) Seg Neutrophils # Seg Neutrophils # Man Lymphocytes # (Manual) Monocytes # (Manual) Eosinophils # (Manual) Basophils # (Manual) PT INR D-Dimer ABG pH POC ABG pCO2 POC ABG pO2 ABG pO2 ABG HCO3 ABG O2 Saturation ABG Base Excess ABG Hemoglobin ABG Oxyhemoglobin ABG Potassium ABG Glucose Oxyhemoglobin Carboxyhemoglobin Sodium Potassium Chloride Carbon Dioxide BUN Creatinine Glucose POC Glucose 135 H 133 H Calcium Ferritin Total Bilirubin Alkaline Phosphatase Lactate Dehydrogenase Total Creatine Kinase CK-MB (CK-2) Rel Index Troponin T 0.113 H* C-Reactive Protein Total Protein Albumin Prealbumin LDL Cholesterol Direct HDL Cholesterol Arterial Blood Glucose Arterial Blood Ionized Calcium Urine WBC (Auto) 03/23/20 03/23/20 03/23/20 01:47 06:21 07:57 WBC RBC Hgb Hct MCV MCH RDW Plt Count Lymph % (Auto) Roberts % (Auto) Lymph # (Auto) Roberts # (Auto) Seg Neutrophils % Seg Neuts % (Manual) Lymphocytes % (Manual) Monocytes % (Manual) Basophils % (Manual) Seg Neutrophils # Seg Neutrophils # Man Lymphocytes # (Manual) Monocytes # (Manual) Eosinophils # (Manual) Basophils # (Manual) PT INR D-Dimer ABG pH POC ABG pCO2 POC ABG pO2 ABG pO2 ABG HCO3 ABG O2 Saturation ABG Base Excess ABG Hemoglobin ABG Oxyhemoglobin ABG Potassium ABG Glucose Oxyhemoglobin Carboxyhemoglobin Sodium Potassium Chloride Carbon Dioxide BUN Creatinine Glucose POC Glucose 130 H Calcium Ferritin Total Bilirubin Alkaline Phosphatase Lactate Dehydrogenase Total Creatine Kinase CK-MB (CK-2) Rel Index Troponin T 0.143 H* D 0.105 H* D C-Reactive Protein Total Protein Albumin Prealbumin LDL Cholesterol Direct HDL Cholesterol Arterial Blood Glucose Arterial Blood Ionized Calcium Urine WBC (Auto) 03/23/20 03/24/20 03/24/20 12:02 05:33 07:15 WBC 18.0 H RBC Hgb 11.0 L Hct 34.0 L MCV MCH RDW 17.4 H Plt Count 520 H Lymph % (Auto) Roberts % (Auto) Lymph # (Auto) Roberts # (Auto) Seg Neutrophils % Seg Neuts % (Manual) 88.0 H Lymphocytes % (Manual) 7.0 L Monocytes % (Manual) Basophils % (Manual) Seg Neutrophils # Seg Neutrophils # Man 15.8 H Lymphocytes # (Manual) Monocytes # (Manual) Eosinophils # (Manual) Basophils # (Manual) PT INR D-Dimer ABG pH POC ABG pCO2 POC ABG pO2 ABG pO2 ABG HCO3 ABG O2 Saturation ABG Base Excess ABG Hemoglobin ABG Oxyhemoglobin ABG Potassium ABG Glucose Oxyhemoglobin Carboxyhemoglobin Sodium Potassium Chloride Carbon Dioxide BUN Creatinine Glucose POC Glucose 137 H 112 H Calcium Ferritin Total Bilirubin Alkaline Phosphatase Lactate Dehydrogenase Total Creatine Kinase CK-MB (CK-2) Rel Index Troponin T C-Reactive Protein Total Protein Albumin Prealbumin LDL Cholesterol Direct HDL Cholesterol Arterial Blood Glucose Arterial Blood Ionized Calcium Urine WBC (Auto) 03/24/20 03/24/20 03/24/20 07:15 11:22 23:30 WBC RBC Hgb Hct MCV MCH RDW Plt Count Lymph % (Auto) Roberts % (Auto) Lymph # (Auto) Roberts # (Auto) Seg Neutrophils % Seg Neuts % (Manual) Lymphocytes % (Manual) Monocytes % (Manual) Basophils % (Manual) Seg Neutrophils # Seg Neutrophils # Man Lymphocytes # (Manual) Monocytes # (Manual) Eosinophils # (Manual) Basophils # (Manual) PT INR D-Dimer ABG pH POC ABG pCO2 POC ABG pO2 ABG pO2 ABG HCO3 ABG O2 Saturation ABG Base Excess ABG Hemoglobin ABG Oxyhemoglobin ABG Potassium ABG Glucose Oxyhemoglobin Carboxyhemoglobin Sodium Potassium Chloride 96.6 L Carbon Dioxide 38 H BUN Creatinine < 0.2 L Glucose 141 H POC Glucose 130 H 120 H Calcium Ferritin Total Bilirubin Alkaline Phosphatase Lactate Dehydrogenase Total Creatine Kinase CK-MB (CK-2) Rel Index Troponin T C-Reactive Protein Total Protein Albumin Prealbumin LDL Cholesterol Direct HDL Cholesterol Arterial Blood Glucose Arterial Blood Ionized Calcium Urine WBC (Auto) 03/25/20 03/25/20 03/25/20 05:48 17:53 23:18 WBC RBC Hgb Hct MCV MCH RDW Plt Count Lymph % (Auto) Roberts % (Auto) Lymph # (Auto) Roberts # (Auto) Seg Neutrophils % Seg Neuts % (Manual) Lymphocytes % (Manual) Monocytes % (Manual) Basophils % (Manual) Seg Neutrophils # Seg Neutrophils # Man Lymphocytes # (Manual) Monocytes # (Manual) Eosinophils # (Manual) Basophils # (Manual) PT INR D-Dimer ABG pH POC ABG pCO2 POC ABG pO2 ABG pO2 ABG HCO3 ABG O2 Saturation ABG Base Excess ABG Hemoglobin ABG Oxyhemoglobin ABG Potassium ABG Glucose Oxyhemoglobin Carboxyhemoglobin Sodium Potassium Chloride Carbon Dioxide BUN Creatinine Glucose POC Glucose 124 H 109 H 131 H Calcium Ferritin Total Bilirubin Alkaline Phosphatase Lactate Dehydrogenase Total Creatine Kinase CK-MB (CK-2) Rel Index Troponin T C-Reactive Protein Total Protein Albumin Prealbumin LDL Cholesterol Direct HDL Cholesterol Arterial Blood Glucose Arterial Blood Ionized Calcium Urine WBC (Auto) 03/26/20 03/26/20 03/26/20 05:21 08:49 08:49 WBC 19.7 H RBC Hgb 10.7 L Hct 33.5 L MCV MCH 27 L RDW 17.1 H Plt Count 480 H Lymph % (Auto) 5.7 L Roberts % (Auto) Lymph # (Auto) 1.1 L Roberts # (Auto) 1.2 H Seg Neutrophils % 87.7 H Seg Neuts % (Manual) Lymphocytes % (Manual) Monocytes % (Manual) Basophils % (Manual) Seg Neutrophils # 17.2 H Seg Neutrophils # Man Lymphocytes # (Manual) Monocytes # (Manual) Eosinophils # (Manual) Basophils # (Manual) PT INR D-Dimer ABG pH POC ABG pCO2 POC ABG pO2 ABG pO2 ABG HCO3 ABG O2 Saturation ABG Base Excess ABG Hemoglobin ABG Oxyhemoglobin ABG Potassium ABG Glucose Oxyhemoglobin Carboxyhemoglobin Sodium Potassium Chloride 97.2 L Carbon Dioxide 36 H BUN Creatinine < 0.2 L Glucose 127 H POC Glucose 116 H Calcium Ferritin Total Bilirubin Alkaline Phosphatase Lactate Dehydrogenase Total Creatine Kinase CK-MB (CK-2) Rel Index Troponin T C-Reactive Protein Total Protein Albumin Prealbumin LDL Cholesterol Direct HDL Cholesterol Arterial Blood Glucose Arterial Blood Ionized Calcium Urine WBC (Auto) 03/26/20 03/26/20 03/26/20 11:38 18:44 23:06 WBC RBC Hgb Hct MCV MCH RDW Plt Count Lymph % (Auto) Roberts % (Auto) Lymph # (Auto) Roberts # (Auto) Seg Neutrophils % Seg Neuts % (Manual) Lymphocytes % (Manual) Monocytes % (Manual) Basophils % (Manual) Seg Neutrophils # Seg Neutrophils # Man Lymphocytes # (Manual) Monocytes # (Manual) Eosinophils # (Manual) Basophils # (Manual) PT INR D-Dimer ABG pH POC ABG pCO2 POC ABG pO2 ABG pO2 ABG HCO3 ABG O2 Saturation ABG Base Excess ABG Hemoglobin ABG Oxyhemoglobin ABG Potassium ABG Glucose Oxyhemoglobin Carboxyhemoglobin Sodium Potassium Chloride Carbon Dioxide BUN Creatinine Glucose POC Glucose 120 H 111 H 134 H Calcium Ferritin Total Bilirubin Alkaline Phosphatase Lactate Dehydrogenase Total Creatine Kinase CK-MB (CK-2) Rel Index Troponin T C-Reactive Protein Total Protein Albumin Prealbumin LDL Cholesterol Direct HDL Cholesterol Arterial Blood Glucose Arterial Blood Ionized Calcium Urine WBC (Auto) 03/27/20 03/27/20 03/27/20 05:41 05:59 05:59 WBC 18.6 H RBC Hgb 10.1 L Hct 31.4 L MCV MCH RDW 17.2 H Plt Count Lymph % (Auto) 8.0 L Roberts % (Auto) Lymph # (Auto) Roberts # (Auto) 1.2 H Seg Neutrophils % 84.7 H Seg Neuts % (Manual) Lymphocytes % (Manual) Monocytes % (Manual) Basophils % (Manual) Seg Neutrophils # 15.8 H Seg Neutrophils # Man Lymphocytes # (Manual) Monocytes # (Manual) Eosinophils # (Manual) Basophils # (Manual) PT INR D-Dimer ABG pH POC ABG pCO2 POC ABG pO2 ABG pO2 ABG HCO3 ABG O2 Saturation ABG Base Excess ABG Hemoglobin ABG Oxyhemoglobin ABG Potassium ABG Glucose Oxyhemoglobin Carboxyhemoglobin Sodium Potassium Chloride Carbon Dioxide 34 H BUN Creatinine < 0.2 L Glucose 127 H POC Glucose 129 H Calcium Ferritin Total Bilirubin Alkaline Phosphatase Lactate Dehydrogenase Total Creatine Kinase CK-MB (CK-2) Rel Index Troponin T C-Reactive Protein Total Protein Albumin Prealbumin LDL Cholesterol Direct HDL Cholesterol Arterial Blood Glucose Arterial Blood Ionized Calcium Urine WBC (Auto) 03/27/20 03/27/20 03/28/20 17:28 23:22 05:23 WBC RBC Hgb Hct MCV MCH RDW Plt Count Lymph % (Auto) Roberts % (Auto) Lymph # (Auto) Roberts # (Auto) Seg Neutrophils % Seg Neuts % (Manual) Lymphocytes % (Manual) Monocytes % (Manual) Basophils % (Manual) Seg Neutrophils # Seg Neutrophils # Man Lymphocytes # (Manual) Monocytes # (Manual) Eosinophils # (Manual) Basophils # (Manual) PT INR D-Dimer ABG pH POC ABG pCO2 POC ABG pO2 ABG pO2 ABG HCO3 ABG O2 Saturation ABG Base Excess ABG Hemoglobin ABG Oxyhemoglobin ABG Potassium ABG Glucose Oxyhemoglobin Carboxyhemoglobin Sodium Potassium Chloride Carbon Dioxide BUN Creatinine Glucose POC Glucose 108 H 119 H 129 H Calcium Ferritin Total Bilirubin Alkaline Phosphatase Lactate Dehydrogenase Total Creatine Kinase CK-MB (CK-2) Rel Index Troponin T C-Reactive Protein Total Protein Albumin Prealbumin LDL Cholesterol Direct HDL Cholesterol Arterial Blood Glucose Arterial Blood Ionized Calcium Urine WBC (Auto) 03/28/20 03/28/20 03/28/20 10:28 10:28 11:36 WBC 23.6 H RBC 3.62 L Hgb 10.0 L Hct 30.8 L MCV MCH RDW 16.4 H Plt Count Lymph % (Auto) Roberts % (Auto) Lymph # (Auto) Roberts # (Auto) Seg Neutrophils % Seg Neuts % (Manual) 89.0 H Lymphocytes % (Manual) 5.0 L Monocytes % (Manual) Basophils % (Manual) Seg Neutrophils # Seg Neutrophils # Man 21.0 H Lymphocytes # (Manual) Monocytes # (Manual) 1.2 H Eosinophils # (Manual) Basophils # (Manual) 0.2 H PT INR D-Dimer ABG pH POC ABG pCO2 POC ABG pO2 ABG pO2 ABG HCO3 ABG O2 Saturation ABG Base Excess ABG Hemoglobin ABG Oxyhemoglobin ABG Potassium ABG Glucose Oxyhemoglobin Carboxyhemoglobin Sodium 134 L Potassium Chloride 94.2 L Carbon Dioxide 35 H BUN Creatinine < 0.2 L Glucose 134 H POC Glucose Calcium Ferritin Total Bilirubin Alkaline Phosphatase Lactate Dehydrogenase Total Creatine Kinase CK-MB (CK-2) Rel Index Troponin T C-Reactive Protein Total Protein Albumin Prealbumin LDL Cholesterol Direct HDL Cholesterol Arterial Blood Glucose Arterial Blood Ionized Calcium Urine WBC (Auto) 39.0 H 03/28/20 03/28/20 03/28/20 11:51 17:08 17:17 WBC RBC Hgb Hct MCV MCH RDW Plt Count Lymph % (Auto) Roberts % (Auto) Lymph # (Auto) Roberts # (Auto) Seg Neutrophils % Seg Neuts % (Manual) Lymphocytes % (Manual) Monocytes % (Manual) Basophils % (Manual) Seg Neutrophils # Seg Neutrophils # Man Lymphocytes # (Manual) Monocytes # (Manual) Eosinophils # (Manual) Basophils # (Manual) PT INR D-Dimer ABG pH POC ABG pCO2 POC ABG pO2 ABG pO2 ABG HCO3 ABG O2 Saturation ABG Base Excess ABG Hemoglobin ABG Oxyhemoglobin ABG Potassium ABG Glucose Oxyhemoglobin Carboxyhemoglobin Sodium Potassium Chloride Carbon Dioxide BUN Creatinine Glucose POC Glucose 123 H 112 H Calcium Ferritin Total Bilirubin Alkaline Phosphatase Lactate Dehydrogenase Total Creatine Kinase 47 L CK-MB (CK-2) Rel Index 4.6 H Troponin T 0.090 H C-Reactive Protein Total Protein Albumin Prealbumin LDL Cholesterol Direct HDL Cholesterol Arterial Blood Glucose Arterial Blood Ionized Calcium Urine WBC (Auto) 03/28/20 03/29/20 03/29/20 23:22 05:22 10:58 WBC RBC Hgb Hct MCV MCH RDW Plt Count Lymph % (Auto) Roberts % (Auto) Lymph # (Auto) Roberts # (Auto) Seg Neutrophils % Seg Neuts % (Manual) Lymphocytes % (Manual) Monocytes % (Manual) Basophils % (Manual) Seg Neutrophils # Seg Neutrophils # Man Lymphocytes # (Manual) Monocytes # (Manual) Eosinophils # (Manual) Basophils # (Manual) PT INR D-Dimer ABG pH POC ABG pCO2 POC ABG pO2 ABG pO2 ABG HCO3 ABG O2 Saturation ABG Base Excess ABG Hemoglobin ABG Oxyhemoglobin ABG Potassium ABG Glucose Oxyhemoglobin Carboxyhemoglobin Sodium Potassium Chloride Carbon Dioxide BUN Creatinine Glucose POC Glucose 122 H 116 H 133 H Calcium Ferritin Total Bilirubin Alkaline Phosphatase Lactate Dehydrogenase Total Creatine Kinase CK-MB (CK-2) Rel Index Troponin T C-Reactive Protein Total Protein Albumin Prealbumin LDL Cholesterol Direct HDL Cholesterol Arterial Blood Glucose Arterial Blood Ionized Calcium Urine WBC (Auto) 03/29/20 03/29/20 03/30/20 17:18 23:14 04:57 WBC RBC Hgb Hct MCV MCH RDW Plt Count Lymph % (Auto) Roberts % (Auto) Lymph # (Auto) Roberts # (Auto) Seg Neutrophils % Seg Neuts % (Manual) Lymphocytes % (Manual) Monocytes % (Manual) Basophils % (Manual) Seg Neutrophils # Seg Neutrophils # Man Lymphocytes # (Manual) Monocytes # (Manual) Eosinophils # (Manual) Basophils # (Manual) PT INR D-Dimer ABG pH POC ABG pCO2 POC ABG pO2 ABG pO2 ABG HCO3 ABG O2 Saturation ABG Base Excess ABG Hemoglobin ABG Oxyhemoglobin ABG Potassium ABG Glucose Oxyhemoglobin Carboxyhemoglobin Sodium Potassium Chloride Carbon Dioxide BUN Creatinine Glucose POC Glucose 111 H 114 H 130 H Calcium Ferritin Total Bilirubin Alkaline Phosphatase Lactate Dehydrogenase Total Creatine Kinase CK-MB (CK-2) Rel Index Troponin T C-Reactive Protein Total Protein Albumin Prealbumin LDL Cholesterol Direct HDL Cholesterol Arterial Blood Glucose Arterial Blood Ionized Calcium Urine WBC (Auto) 03/30/20 03/30/20 03/30/20 11:38 14:47 14:47 WBC 19.9 H RBC Hgb 10.9 L Hct 34.4 L MCV MCH 27 L RDW 16.5 H Plt Count 441 H Lymph % (Auto) 6.4 L Roberts % (Auto) Lymph # (Auto) Roberts # (Auto) 1.4 H Seg Neutrophils % 86.1 H Seg Neuts % (Manual) Lymphocytes % (Manual) Monocytes % (Manual) Basophils % (Manual) Seg Neutrophils # 17.1 H Seg Neutrophils # Man Lymphocytes # (Manual) Monocytes # (Manual) Eosinophils # (Manual) Basophils # (Manual) PT INR D-Dimer ABG pH POC ABG pCO2 POC ABG pO2 ABG pO2 ABG HCO3 ABG O2 Saturation ABG Base Excess ABG Hemoglobin ABG Oxyhemoglobin ABG Potassium ABG Glucose Oxyhemoglobin Carboxyhemoglobin Sodium 133 L Potassium Chloride 94.6 L Carbon Dioxide 33 H BUN Creatinine < 0.2 L Glucose 194 H POC Glucose 139 H Calcium Ferritin Total Bilirubin Alkaline Phosphatase Lactate Dehydrogenase Total Creatine Kinase CK-MB (CK-2) Rel Index Troponin T C-Reactive Protein Total Protein Albumin 2.8 L Prealbumin LDL Cholesterol Direct HDL Cholesterol Arterial Blood Glucose Arterial Blood Ionized Calcium Urine WBC (Auto) 03/30/20 03/31/20 03/31/20 17:07 05:02 15:21 WBC RBC Hgb Hct MCV MCH RDW Plt Count Lymph % (Auto) Roberts % (Auto) Lymph # (Auto) Roberts # (Auto) Seg Neutrophils % Seg Neuts % (Manual) Lymphocytes % (Manual) Monocytes % (Manual) Basophils % (Manual) Seg Neutrophils # Seg Neutrophils # Man Lymphocytes # (Manual) Monocytes # (Manual) Eosinophils # (Manual) Basophils # (Manual) PT INR D-Dimer ABG pH POC ABG pCO2 POC ABG pO2 ABG pO2 ABG HCO3 ABG O2 Saturation ABG Base Excess ABG Hemoglobin ABG Oxyhemoglobin ABG Potassium ABG Glucose Oxyhemoglobin Carboxyhemoglobin Sodium Potassium Chloride Carbon Dioxide BUN Creatinine Glucose POC Glucose 163 H 108 H 110 H Calcium Ferritin Total Bilirubin Alkaline Phosphatase Lactate Dehydrogenase Total Creatine Kinase CK-MB (CK-2) Rel Index Troponin T C-Reactive Protein Total Protein Albumin Prealbumin LDL Cholesterol Direct HDL Cholesterol Arterial Blood Glucose Arterial Blood Ionized Calcium Urine WBC (Auto) 03/31/20 03/31/20 04/01/20 17:58 23:19 05:09 WBC RBC Hgb Hct MCV MCH RDW Plt Count Lymph % (Auto) Roberts % (Auto) Lymph # (Auto) Roberts # (Auto) Seg Neutrophils % Seg Neuts % (Manual) Lymphocytes % (Manual) Monocytes % (Manual) Basophils % (Manual) Seg Neutrophils # Seg Neutrophils # Man Lymphocytes # (Manual) Monocytes # (Manual) Eosinophils # (Manual) Basophils # (Manual) PT INR D-Dimer ABG pH POC ABG pCO2 POC ABG pO2 ABG pO2 ABG HCO3 ABG O2 Saturation ABG Base Excess ABG Hemoglobin ABG Oxyhemoglobin ABG Potassium ABG Glucose Oxyhemoglobin Carboxyhemoglobin Sodium Potassium Chloride Carbon Dioxide BUN Creatinine Glucose POC Glucose 110 H 131 H 124 H Calcium Ferritin Total Bilirubin Alkaline Phosphatase Lactate Dehydrogenase Total Creatine Kinase CK-MB (CK-2) Rel Index Troponin T C-Reactive Protein Total Protein Albumin Prealbumin LDL Cholesterol Direct HDL Cholesterol Arterial Blood Glucose Arterial Blood Ionized Calcium Urine WBC (Auto) 04/01/20 04/01/20 04/01/20 11:50 17:01 23:21 WBC RBC Hgb Hct MCV MCH RDW Plt Count Lymph % (Auto) Roberts % (Auto) Lymph # (Auto) Roberts # (Auto) Seg Neutrophils % Seg Neuts % (Manual) Lymphocytes % (Manual) Monocytes % (Manual) Basophils % (Manual) Seg Neutrophils # Seg Neutrophils # Man Lymphocytes # (Manual) Monocytes # (Manual) Eosinophils # (Manual) Basophils # (Manual) PT INR D-Dimer ABG pH POC ABG pCO2 POC ABG pO2 ABG pO2 ABG HCO3 ABG O2 Saturation ABG Base Excess ABG Hemoglobin ABG Oxyhemoglobin ABG Potassium ABG Glucose Oxyhemoglobin Carboxyhemoglobin Sodium Potassium Chloride Carbon Dioxide BUN Creatinine Glucose POC Glucose 136 H 115 H 124 H Calcium Ferritin Total Bilirubin Alkaline Phosphatase Lactate Dehydrogenase Total Creatine Kinase CK-MB (CK-2) Rel Index Troponin T C-Reactive Protein Total Protein Albumin Prealbumin LDL Cholesterol Direct HDL Cholesterol Arterial Blood Glucose Arterial Blood Ionized Calcium Urine WBC (Auto) 04/02/20 04/02/20 04/02/20 05:27 11:58 17:58 WBC RBC Hgb Hct MCV MCH RDW Plt Count Lymph % (Auto) Roberts % (Auto) Lymph # (Auto) Roberts # (Auto) Seg Neutrophils % Seg Neuts % (Manual) Lymphocytes % (Manual) Monocytes % (Manual) Basophils % (Manual) Seg Neutrophils # Seg Neutrophils # Man Lymphocytes # (Manual) Monocytes # (Manual) Eosinophils # (Manual) Basophils # (Manual) PT INR D-Dimer ABG pH POC ABG pCO2 POC ABG pO2 ABG pO2 ABG HCO3 ABG O2 Saturation ABG Base Excess ABG Hemoglobin ABG Oxyhemoglobin ABG Potassium ABG Glucose Oxyhemoglobin Carboxyhemoglobin Sodium Potassium Chloride Carbon Dioxide BUN Creatinine Glucose POC Glucose 117 H 133 H 122 H Calcium Ferritin Total Bilirubin Alkaline Phosphatase Lactate Dehydrogenase Total Creatine Kinase CK-MB (CK-2) Rel Index Troponin T C-Reactive Protein Total Protein Albumin Prealbumin LDL Cholesterol Direct HDL Cholesterol Arterial Blood Glucose Arterial Blood Ionized Calcium Urine WBC (Auto) 04/02/20 04/03/20 04/03/20 23:12 05:11 11:11 WBC RBC Hgb Hct MCV MCH RDW Plt Count Lymph % (Auto) Roberts % (Auto) Lymph # (Auto) Roberts # (Auto) Seg Neutrophils % Seg Neuts % (Manual) Lymphocytes % (Manual) Monocytes % (Manual) Basophils % (Manual) Seg Neutrophils # Seg Neutrophils # Man Lymphocytes # (Manual) Monocytes # (Manual) Eosinophils # (Manual) Basophils # (Manual) PT INR D-Dimer ABG pH POC ABG pCO2 POC ABG pO2 ABG pO2 ABG HCO3 ABG O2 Saturation ABG Base Excess ABG Hemoglobin ABG Oxyhemoglobin ABG Potassium ABG Glucose Oxyhemoglobin Carboxyhemoglobin Sodium Potassium Chloride Carbon Dioxide BUN Creatinine Glucose POC Glucose 130 H 139 H 136 H Calcium Ferritin Total Bilirubin Alkaline Phosphatase Lactate Dehydrogenase Total Creatine Kinase CK-MB (CK-2) Rel Index Troponin T C-Reactive Protein Total Protein Albumin Prealbumin LDL Cholesterol Direct HDL Cholesterol Arterial Blood Glucose Arterial Blood Ionized Calcium Urine WBC (Auto) 04/03/20 04/03/20 04/04/20 16:51 23:25 05:29 WBC RBC Hgb Hct MCV MCH RDW Plt Count Lymph % (Auto) Roberts % (Auto) Lymph # (Auto) Roberts # (Auto) Seg Neutrophils % Seg Neuts % (Manual) Lymphocytes % (Manual) Monocytes % (Manual) Basophils % (Manual) Seg Neutrophils # Seg Neutrophils # Man Lymphocytes # (Manual) Monocytes # (Manual) Eosinophils # (Manual) Basophils # (Manual) PT INR D-Dimer ABG pH POC ABG pCO2 POC ABG pO2 ABG pO2 ABG HCO3 ABG O2 Saturation ABG Base Excess ABG Hemoglobin ABG Oxyhemoglobin ABG Potassium ABG Glucose Oxyhemoglobin Carboxyhemoglobin Sodium Potassium Chloride Carbon Dioxide BUN Creatinine Glucose POC Glucose 118 H 111 H 126 H Calcium Ferritin Total Bilirubin Alkaline Phosphatase Lactate Dehydrogenase Total Creatine Kinase CK-MB (CK-2) Rel Index Troponin T C-Reactive Protein Total Protein Albumin Prealbumin LDL Cholesterol Direct HDL Cholesterol Arterial Blood Glucose Arterial Blood Ionized Calcium Urine WBC (Auto) 04/04/20 04/04/20 04/04/20 11:47 17:41 23:05 WBC RBC Hgb Hct MCV MCH RDW Plt Count Lymph % (Auto) Roberts % (Auto) Lymph # (Auto) Roberts # (Auto) Seg Neutrophils % Seg Neuts % (Manual) Lymphocytes % (Manual) Monocytes % (Manual) Basophils % (Manual) Seg Neutrophils # Seg Neutrophils # Man Lymphocytes # (Manual) Monocytes # (Manual) Eosinophils # (Manual) Basophils # (Manual) PT INR D-Dimer ABG pH POC ABG pCO2 POC ABG pO2 ABG pO2 ABG HCO3 ABG O2 Saturation ABG Base Excess ABG Hemoglobin ABG Oxyhemoglobin ABG Potassium ABG Glucose Oxyhemoglobin Carboxyhemoglobin Sodium Potassium Chloride Carbon Dioxide BUN Creatinine Glucose POC Glucose 123 H 120 H 119 H Calcium Ferritin Total Bilirubin Alkaline Phosphatase Lactate Dehydrogenase Total Creatine Kinase CK-MB (CK-2) Rel Index Troponin T C-Reactive Protein Total Protein Albumin Prealbumin LDL Cholesterol Direct HDL Cholesterol Arterial Blood Glucose Arterial Blood Ionized Calcium Urine WBC (Auto) 04/05/20 04/05/20 04/05/20 05:14 12:16 18:48 WBC RBC Hgb Hct MCV MCH RDW Plt Count Lymph % (Auto) Roberts % (Auto) Lymph # (Auto) Roberts # (Auto) Seg Neutrophils % Seg Neuts % (Manual) Lymphocytes % (Manual) Monocytes % (Manual) Basophils % (Manual) Seg Neutrophils # Seg Neutrophils # Man Lymphocytes # (Manual) Monocytes # (Manual) Eosinophils # (Manual) Basophils # (Manual) PT INR D-Dimer ABG pH POC ABG pCO2 POC ABG pO2 ABG pO2 ABG HCO3 ABG O2 Saturation ABG Base Excess ABG Hemoglobin ABG Oxyhemoglobin ABG Potassium ABG Glucose Oxyhemoglobin Carboxyhemoglobin Sodium Potassium Chloride Carbon Dioxide BUN Creatinine Glucose POC Glucose 123 H 148 H 106 H Calcium Ferritin Total Bilirubin Alkaline Phosphatase Lactate Dehydrogenase Total Creatine Kinase CK-MB (CK-2) Rel Index Troponin T C-Reactive Protein Total Protein Albumin Prealbumin LDL Cholesterol Direct HDL Cholesterol Arterial Blood Glucose Arterial Blood Ionized Calcium Urine WBC (Auto) 04/06/20 04/06/20 04/06/20 00:47 03:26 08:24 WBC RBC Hgb Hct MCV MCH RDW Plt Count Lymph % (Auto) Roberts % (Auto) Lymph # (Auto) Roberts # (Auto) Seg Neutrophils % Seg Neuts % (Manual) Lymphocytes % (Manual) Monocytes % (Manual) Basophils % (Manual) Seg Neutrophils # Seg Neutrophils # Man Lymphocytes # (Manual) Monocytes # (Manual) Eosinophils # (Manual) Basophils # (Manual) PT INR D-Dimer ABG pH POC ABG pCO2 POC ABG pO2 ABG pO2 ABG HCO3 ABG O2 Saturation ABG Base Excess ABG Hemoglobin ABG Oxyhemoglobin ABG Potassium ABG Glucose Oxyhemoglobin Carboxyhemoglobin Sodium Potassium Chloride Carbon Dioxide BUN Creatinine Glucose POC Glucose 129 H 134 H 131 H Calcium Ferritin Total Bilirubin Alkaline Phosphatase Lactate Dehydrogenase Total Creatine Kinase CK-MB (CK-2) Rel Index Troponin T C-Reactive Protein Total Protein Albumin Prealbumin LDL Cholesterol Direct HDL Cholesterol Arterial Blood Glucose Arterial Blood Ionized Calcium Urine WBC (Auto) 04/06/20 04/06/20 04/06/20 11:16 16:27 23:01 WBC RBC Hgb Hct MCV MCH RDW Plt Count Lymph % (Auto) Roberts % (Auto) Lymph # (Auto) Roberts # (Auto) Seg Neutrophils % Seg Neuts % (Manual) Lymphocytes % (Manual) Monocytes % (Manual) Basophils % (Manual) Seg Neutrophils # Seg Neutrophils # Man Lymphocytes # (Manual) Monocytes # (Manual) Eosinophils # (Manual) Basophils # (Manual) PT INR D-Dimer ABG pH POC ABG pCO2 POC ABG pO2 ABG pO2 ABG HCO3 ABG O2 Saturation ABG Base Excess ABG Hemoglobin ABG Oxyhemoglobin ABG Potassium ABG Glucose Oxyhemoglobin Carboxyhemoglobin Sodium Potassium Chloride Carbon Dioxide BUN Creatinine Glucose POC Glucose 131 H 107 H 125 H Calcium Ferritin Total Bilirubin Alkaline Phosphatase Lactate Dehydrogenase Total Creatine Kinase CK-MB (CK-2) Rel Index Troponin T C-Reactive Protein Total Protein Albumin Prealbumin LDL Cholesterol Direct HDL Cholesterol Arterial Blood Glucose Arterial Blood Ionized Calcium Urine WBC (Auto) 04/07/20 04/07/20 04/07/20 05:24 12:41 17:40 WBC RBC Hgb Hct MCV MCH RDW Plt Count Lymph % (Auto) Roberts % (Auto) Lymph # (Auto) Roberts # (Auto) Seg Neutrophils % Seg Neuts % (Manual) Lymphocytes % (Manual) Monocytes % (Manual) Basophils % (Manual) Seg Neutrophils # Seg Neutrophils # Man Lymphocytes # (Manual) Monocytes # (Manual) Eosinophils # (Manual) Basophils # (Manual) PT INR D-Dimer ABG pH POC ABG pCO2 POC ABG pO2 ABG pO2 ABG HCO3 ABG O2 Saturation ABG Base Excess ABG Hemoglobin ABG Oxyhemoglobin ABG Potassium ABG Glucose Oxyhemoglobin Carboxyhemoglobin Sodium Potassium Chloride Carbon Dioxide BUN Creatinine Glucose POC Glucose 125 H 145 H 123 H Calcium Ferritin Total Bilirubin Alkaline Phosphatase Lactate Dehydrogenase Total Creatine Kinase CK-MB (CK-2) Rel Index Troponin T C-Reactive Protein Total Protein Albumin Prealbumin LDL Cholesterol Direct HDL Cholesterol Arterial Blood Glucose Arterial Blood Ionized Calcium Urine WBC (Auto) 04/07/20 04/08/20 04/08/20 23:22 05:40 11:29 WBC RBC Hgb Hct MCV MCH RDW Plt Count Lymph % (Auto) Roberts % (Auto) Lymph # (Auto) Roberts # (Auto) Seg Neutrophils % Seg Neuts % (Manual) Lymphocytes % (Manual) Monocytes % (Manual) Basophils % (Manual) Seg Neutrophils # Seg Neutrophils # Man Lymphocytes # (Manual) Monocytes # (Manual) Eosinophils # (Manual) Basophils # (Manual) PT INR D-Dimer ABG pH POC ABG pCO2 POC ABG pO2 ABG pO2 ABG HCO3 ABG O2 Saturation ABG Base Excess ABG Hemoglobin ABG Oxyhemoglobin ABG Potassium ABG Glucose Oxyhemoglobin Carboxyhemoglobin Sodium Potassium Chloride Carbon Dioxide BUN Creatinine Glucose POC Glucose 133 H 125 H 116 H Calcium Ferritin Total Bilirubin Alkaline Phosphatase Lactate Dehydrogenase Total Creatine Kinase CK-MB (CK-2) Rel Index Troponin T C-Reactive Protein Total Protein Albumin Prealbumin LDL Cholesterol Direct HDL Cholesterol Arterial Blood Glucose Arterial Blood Ionized Calcium Urine WBC (Auto) 04/08/20 04/09/20 04/09/20 17:43 05:47 12:22 WBC RBC Hgb Hct MCV MCH RDW Plt Count Lymph % (Auto) Roberts % (Auto) Lymph # (Auto) Roberts # (Auto) Seg Neutrophils % Seg Neuts % (Manual) Lymphocytes % (Manual) Monocytes % (Manual) Basophils % (Manual) Seg Neutrophils # Seg Neutrophils # Man Lymphocytes # (Manual) Monocytes # (Manual) Eosinophils # (Manual) Basophils # (Manual) PT INR D-Dimer ABG pH POC ABG pCO2 POC ABG pO2 ABG pO2 ABG HCO3 ABG O2 Saturation ABG Base Excess ABG Hemoglobin ABG Oxyhemoglobin ABG Potassium ABG Glucose Oxyhemoglobin Carboxyhemoglobin Sodium Potassium Chloride Carbon Dioxide BUN Creatinine Glucose POC Glucose 123 H 108 H 116 H Calcium Ferritin Total Bilirubin Alkaline Phosphatase Lactate Dehydrogenase Total Creatine Kinase CK-MB (CK-2) Rel Index Troponin T C-Reactive Protein Total Protein Albumin Prealbumin LDL Cholesterol Direct HDL Cholesterol Arterial Blood Glucose Arterial Blood Ionized Calcium Urine WBC (Auto) 04/09/20 04/09/20 04/10/20 17:24 23:52 06:10 WBC RBC Hgb Hct MCV MCH RDW Plt Count Lymph % (Auto) Roberts % (Auto) Lymph # (Auto) Roberts # (Auto) Seg Neutrophils % Seg Neuts % (Manual) Lymphocytes % (Manual) Monocytes % (Manual) Basophils % (Manual) Seg Neutrophils # Seg Neutrophils # Man Lymphocytes # (Manual) Monocytes # (Manual) Eosinophils # (Manual) Basophils # (Manual) PT INR D-Dimer ABG pH POC ABG pCO2 POC ABG pO2 ABG pO2 ABG HCO3 ABG O2 Saturation ABG Base Excess ABG Hemoglobin ABG Oxyhemoglobin ABG Potassium ABG Glucose Oxyhemoglobin Carboxyhemoglobin Sodium Potassium Chloride Carbon Dioxide BUN Creatinine Glucose POC Glucose 108 H 126 H 122 H Calcium Ferritin Total Bilirubin Alkaline Phosphatase Lactate Dehydrogenase Total Creatine Kinase CK-MB (CK-2) Rel Index Troponin T C-Reactive Protein Total Protein Albumin Prealbumin LDL Cholesterol Direct HDL Cholesterol Arterial Blood Glucose Arterial Blood Ionized Calcium Urine WBC (Auto) 04/10/20 04/10/20 04/10/20 11:27 18:11 23:24 WBC RBC Hgb Hct MCV MCH RDW Plt Count Lymph % (Auto) Roberts % (Auto) Lymph # (Auto) Roberts # (Auto) Seg Neutrophils % Seg Neuts % (Manual) Lymphocytes % (Manual) Monocytes % (Manual) Basophils % (Manual) Seg Neutrophils # Seg Neutrophils # Man Lymphocytes # (Manual) Monocytes # (Manual) Eosinophils # (Manual) Basophils # (Manual) PT INR D-Dimer ABG pH POC ABG pCO2 POC ABG pO2 ABG pO2 ABG HCO3 ABG O2 Saturation ABG Base Excess ABG Hemoglobin ABG Oxyhemoglobin ABG Potassium ABG Glucose Oxyhemoglobin Carboxyhemoglobin Sodium Potassium Chloride Carbon Dioxide BUN Creatinine Glucose POC Glucose 129 H 125 H 107 H Calcium Ferritin Total Bilirubin Alkaline Phosphatase Lactate Dehydrogenase Total Creatine Kinase CK-MB (CK-2) Rel Index Troponin T C-Reactive Protein Total Protein Albumin Prealbumin LDL Cholesterol Direct HDL Cholesterol Arterial Blood Glucose Arterial Blood Ionized Calcium Urine WBC (Auto) 04/11/20 04/11/20 04/11/20 05:28 11:46 23:49 WBC RBC Hgb Hct MCV MCH RDW Plt Count Lymph % (Auto) Roberts % (Auto) Lymph # (Auto) Roberts # (Auto) Seg Neutrophils % Seg Neuts % (Manual) Lymphocytes % (Manual) Monocytes % (Manual) Basophils % (Manual) Seg Neutrophils # Seg Neutrophils # Man Lymphocytes # (Manual) Monocytes # (Manual) Eosinophils # (Manual) Basophils # (Manual) PT INR D-Dimer ABG pH POC ABG pCO2 POC ABG pO2 ABG pO2 ABG HCO3 ABG O2 Saturation ABG Base Excess ABG Hemoglobin ABG Oxyhemoglobin ABG Potassium ABG Glucose Oxyhemoglobin Carboxyhemoglobin Sodium Potassium Chloride Carbon Dioxide BUN Creatinine Glucose POC Glucose 122 H 122 H 116 H Calcium Ferritin Total Bilirubin Alkaline Phosphatase Lactate Dehydrogenase Total Creatine Kinase CK-MB (CK-2) Rel Index Troponin T C-Reactive Protein Total Protein Albumin Prealbumin LDL Cholesterol Direct HDL Cholesterol Arterial Blood Glucose Arterial Blood Ionized Calcium Urine WBC (Auto) 04/12/20 04/12/20 04/12/20 09:07 09:07 11:39 WBC 13.1 H RBC 3.59 L Hgb 9.5 L Hct 29.8 L MCV 83 L MCH 26 L RDW 16.6 H Plt Count 591 H Lymph % (Auto) Roberts % (Auto) Lymph # (Auto) Roberts # (Auto) Seg Neutrophils % Seg Neuts % (Manual) 86.0 H Lymphocytes % (Manual) 7.0 L Monocytes % (Manual) Basophils % (Manual) Seg Neutrophils # Seg Neutrophils # Man 11.3 H Lymphocytes # (Manual) 0.9 L Monocytes # (Manual) Eosinophils # (Manual) Basophils # (Manual) PT INR D-Dimer ABG pH POC ABG pCO2 POC ABG pO2 ABG pO2 ABG HCO3 ABG O2 Saturation ABG Base Excess ABG Hemoglobin ABG Oxyhemoglobin ABG Potassium ABG Glucose Oxyhemoglobin Carboxyhemoglobin Sodium Potassium Chloride Carbon Dioxide 36 H BUN Creatinine < 0.2 L Glucose 132 H POC Glucose 136 H Calcium Ferritin Total Bilirubin Alkaline Phosphatase Lactate Dehydrogenase Total Creatine Kinase CK-MB (CK-2) Rel Index Troponin T C-Reactive Protein Total Protein Albumin 2.7 L Prealbumin LDL Cholesterol Direct HDL Cholesterol Arterial Blood Glucose Arterial Blood Ionized Calcium Urine WBC (Auto) 04/12/20 04/12/20 04/13/20 18:13 23:07 05:45 WBC RBC Hgb Hct MCV MCH RDW Plt Count Lymph % (Auto) Roberts % (Auto) Lymph # (Auto) Roberts # (Auto) Seg Neutrophils % Seg Neuts % (Manual) Lymphocytes % (Manual) Monocytes % (Manual) Basophils % (Manual) Seg Neutrophils # Seg Neutrophils # Man Lymphocytes # (Manual) Monocytes # (Manual) Eosinophils # (Manual) Basophils # (Manual) PT INR D-Dimer ABG pH POC ABG pCO2 POC ABG pO2 ABG pO2 ABG HCO3 ABG O2 Saturation ABG Base Excess ABG Hemoglobin ABG Oxyhemoglobin ABG Potassium ABG Glucose Oxyhemoglobin Carboxyhemoglobin Sodium Potassium Chloride Carbon Dioxide BUN Creatinine Glucose POC Glucose 107 H 106 H 125 H Calcium Ferritin Total Bilirubin Alkaline Phosphatase Lactate Dehydrogenase Total Creatine Kinase CK-MB (CK-2) Rel Index Troponin T C-Reactive Protein Total Protein Albumin Prealbumin LDL Cholesterol Direct HDL Cholesterol Arterial Blood Glucose Arterial Blood Ionized Calcium Urine WBC (Auto) 04/13/20 04/13/20 04/13/20 11:18 17:56 23:33 WBC RBC Hgb Hct MCV MCH RDW Plt Count Lymph % (Auto) Roberts % (Auto) Lymph # (Auto) Roberts # (Auto) Seg Neutrophils % Seg Neuts % (Manual) Lymphocytes % (Manual) Monocytes % (Manual) Basophils % (Manual) Seg Neutrophils # Seg Neutrophils # Man Lymphocytes # (Manual) Monocytes # (Manual) Eosinophils # (Manual) Basophils # (Manual) PT INR D-Dimer ABG pH POC ABG pCO2 POC ABG pO2 ABG pO2 ABG HCO3 ABG O2 Saturation ABG Base Excess ABG Hemoglobin ABG Oxyhemoglobin ABG Potassium ABG Glucose Oxyhemoglobin Carboxyhemoglobin Sodium Potassium Chloride Carbon Dioxide BUN Creatinine Glucose POC Glucose 133 H 110 H 114 H Calcium Ferritin Total Bilirubin Alkaline Phosphatase Lactate Dehydrogenase Total Creatine Kinase CK-MB (CK-2) Rel Index Troponin T C-Reactive Protein Total Protein Albumin Prealbumin LDL Cholesterol Direct HDL Cholesterol Arterial Blood Glucose Arterial Blood Ionized Calcium Urine WBC (Auto) 04/14/20 04/14/20 04/14/20 05:58 11:45 17:48 WBC RBC Hgb Hct MCV MCH RDW Plt Count Lymph % (Auto) Roberts % (Auto) Lymph # (Auto) Roberts # (Auto) Seg Neutrophils % Seg Neuts % (Manual) Lymphocytes % (Manual) Monocytes % (Manual) Basophils % (Manual) Seg Neutrophils # Seg Neutrophils # Man Lymphocytes # (Manual) Monocytes # (Manual) Eosinophils # (Manual) Basophils # (Manual) PT INR D-Dimer ABG pH POC ABG pCO2 POC ABG pO2 ABG pO2 ABG HCO3 ABG O2 Saturation ABG Base Excess ABG Hemoglobin ABG Oxyhemoglobin ABG Potassium ABG Glucose Oxyhemoglobin Carboxyhemoglobin Sodium Potassium Chloride Carbon Dioxide BUN Creatinine Glucose POC Glucose 115 H 122 H 124 H Calcium Ferritin Total Bilirubin Alkaline Phosphatase Lactate Dehydrogenase Total Creatine Kinase CK-MB (CK-2) Rel Index Troponin T C-Reactive Protein Total Protein Albumin Prealbumin LDL Cholesterol Direct HDL Cholesterol Arterial Blood Glucose Arterial Blood Ionized Calcium Urine WBC (Auto) 04/15/20 04/15/20 04/15/20 00:11 05:38 11:31 WBC RBC Hgb Hct MCV MCH RDW Plt Count Lymph % (Auto) Roberts % (Auto) Lymph # (Auto) Roberts # (Auto) Seg Neutrophils % Seg Neuts % (Manual) Lymphocytes % (Manual) Monocytes % (Manual) Basophils % (Manual) Seg Neutrophils # Seg Neutrophils # Man Lymphocytes # (Manual) Monocytes # (Manual) Eosinophils # (Manual) Basophils # (Manual) PT INR D-Dimer ABG pH POC ABG pCO2 POC ABG pO2 ABG pO2 ABG HCO3 ABG O2 Saturation ABG Base Excess ABG Hemoglobin ABG Oxyhemoglobin ABG Potassium ABG Glucose Oxyhemoglobin Carboxyhemoglobin Sodium Potassium Chloride Carbon Dioxide BUN Creatinine Glucose POC Glucose 120 H 109 H 123 H Calcium Ferritin Total Bilirubin Alkaline Phosphatase Lactate Dehydrogenase Total Creatine Kinase CK-MB (CK-2) Rel Index Troponin T C-Reactive Protein Total Protein Albumin Prealbumin LDL Cholesterol Direct HDL Cholesterol Arterial Blood Glucose Arterial Blood Ionized Calcium Urine WBC (Auto) 04/15/20 04/16/20 04/16/20 17:35 06:00 11:29 WBC RBC Hgb Hct MCV MCH RDW Plt Count Lymph % (Auto) Roberts % (Auto) Lymph # (Auto) Roberts # (Auto) Seg Neutrophils % Seg Neuts % (Manual) Lymphocytes % (Manual) Monocytes % (Manual) Basophils % (Manual) Seg Neutrophils # Seg Neutrophils # Man Lymphocytes # (Manual) Monocytes # (Manual) Eosinophils # (Manual) Basophils # (Manual) PT INR D-Dimer ABG pH POC ABG pCO2 POC ABG pO2 ABG pO2 ABG HCO3 ABG O2 Saturation ABG Base Excess ABG Hemoglobin ABG Oxyhemoglobin ABG Potassium ABG Glucose Oxyhemoglobin Carboxyhemoglobin Sodium Potassium Chloride Carbon Dioxide BUN Creatinine Glucose POC Glucose 111 H 142 H 108 H Calcium Ferritin Total Bilirubin Alkaline Phosphatase Lactate Dehydrogenase Total Creatine Kinase CK-MB (CK-2) Rel Index Troponin T C-Reactive Protein Total Protein Albumin Prealbumin LDL Cholesterol Direct HDL Cholesterol Arterial Blood Glucose Arterial Blood Ionized Calcium Urine WBC (Auto) 04/17/20 04/17/20 04/17/20 05:09 06:53 06:53 WBC 14.2 H RBC Hgb 10.1 L Hct 31.5 L MCV MCH 27 L RDW 17.2 H Plt Count 643 H Lymph % (Auto) Roberts % (Auto) Lymph # (Auto) Roberts # (Auto) Seg Neutrophils % Seg Neuts % (Manual) Lymphocytes % (Manual) Monocytes % (Manual) Basophils % (Manual) Seg Neutrophils # Seg Neutrophils # Man Lymphocytes # (Manual) Monocytes # (Manual) Eosinophils # (Manual) Basophils # (Manual) PT INR D-Dimer ABG pH POC ABG pCO2 POC ABG pO2 ABG pO2 ABG HCO3 ABG O2 Saturation ABG Base Excess ABG Hemoglobin ABG Oxyhemoglobin ABG Potassium ABG Glucose Oxyhemoglobin Carboxyhemoglobin Sodium Potassium Chloride 97.7 L Carbon Dioxide 38 H BUN Creatinine < 0.2 L Glucose 126 H POC Glucose 131 H Calcium Ferritin Total Bilirubin Alkaline Phosphatase Lactate Dehydrogenase Total Creatine Kinase CK-MB (CK-2) Rel Index Troponin T C-Reactive Protein Total Protein Albumin Prealbumin LDL Cholesterol Direct HDL Cholesterol Arterial Blood Glucose Arterial Blood Ionized Calcium Urine WBC (Auto) 04/17/20 04/18/20 04/18/20 11:21 00:23 04:01 WBC 15.3 H RBC Hgb 10.1 L Hct 31.9 L MCV 82 L MCH 26 L RDW 17.2 H Plt Count 665 H Lymph % (Auto) 12.9 L Roberts % (Auto) Lymph # (Auto) Roberts # (Auto) 1.1 H Seg Neutrophils % 78.0 H Seg Neuts % (Manual) Lymphocytes % (Manual) Monocytes % (Manual) Basophils % (Manual) Seg Neutrophils # 11.9 H Seg Neutrophils # Man Lymphocytes # (Manual) Monocytes # (Manual) Eosinophils # (Manual) Basophils # (Manual) PT INR D-Dimer ABG pH POC ABG pCO2 POC ABG pO2 ABG pO2 ABG HCO3 ABG O2 Saturation ABG Base Excess ABG Hemoglobin ABG Oxyhemoglobin ABG Potassium ABG Glucose Oxyhemoglobin Carboxyhemoglobin Sodium Potassium Chloride Carbon Dioxide BUN Creatinine Glucose POC Glucose 140 H 125 H Calcium Ferritin Total Bilirubin Alkaline Phosphatase Lactate Dehydrogenase Total Creatine Kinase CK-MB (CK-2) Rel Index Troponin T C-Reactive Protein Total Protein Albumin Prealbumin LDL Cholesterol Direct HDL Cholesterol Arterial Blood Glucose Arterial Blood Ionized Calcium Urine WBC (Auto) 04/18/20 04/18/20 04/18/20 04:01 11:29 17:30 WBC RBC Hgb Hct MCV MCH RDW Plt Count Lymph % (Auto) Roberts % (Auto) Lymph # (Auto) Roberts # (Auto) Seg Neutrophils % Seg Neuts % (Manual) Lymphocytes % (Manual) Monocytes % (Manual) Basophils % (Manual) Seg Neutrophils # Seg Neutrophils # Man Lymphocytes # (Manual) Monocytes # (Manual) Eosinophils # (Manual) Basophils # (Manual) PT INR D-Dimer ABG pH POC ABG pCO2 POC ABG pO2 ABG pO2 ABG HCO3 ABG O2 Saturation ABG Base Excess ABG Hemoglobin ABG Oxyhemoglobin ABG Potassium ABG Glucose Oxyhemoglobin Carboxyhemoglobin Sodium Potassium Chloride 97.0 L Carbon Dioxide 38 H BUN Creatinine < 0.2 L Glucose 117 H POC Glucose 136 H 107 H Calcium Ferritin Total Bilirubin Alkaline Phosphatase Lactate Dehydrogenase Total Creatine Kinase CK-MB (CK-2) Rel Index Troponin T C-Reactive Protein Total Protein Albumin Prealbumin LDL Cholesterol Direct HDL Cholesterol Arterial Blood Glucose Arterial Blood Ionized Calcium Urine WBC (Auto) 04/18/20 04/19/20 04/19/20 23:19 06:51 06:51 WBC 12.2 H RBC Hgb 9.8 L Hct 31.1 L MCV 82 L MCH 26 L RDW 17.2 H Plt Count 549 H Lymph % (Auto) 6.5 L Roberts % (Auto) Lymph # (Auto) 0.8 L Roberts # (Auto) Seg Neutrophils % 86.7 H Seg Neuts % (Manual) Lymphocytes % (Manual) Monocytes % (Manual) Basophils % (Manual) Seg Neutrophils # 10.6 H Seg Neutrophils # Man Lymphocytes # (Manual) Monocytes # (Manual) Eosinophils # (Manual) Basophils # (Manual) PT INR D-Dimer ABG pH POC ABG pCO2 POC ABG pO2 ABG pO2 ABG HCO3 ABG O2 Saturation ABG Base Excess ABG Hemoglobin ABG Oxyhemoglobin ABG Potassium ABG Glucose Oxyhemoglobin Carboxyhemoglobin Sodium Potassium Chloride 97.8 L Carbon Dioxide 38 H BUN Creatinine < 0.2 L Glucose 123 H POC Glucose 127 H Calcium Ferritin Total Bilirubin Alkaline Phosphatase Lactate Dehydrogenase Total Creatine Kinase CK-MB (CK-2) Rel Index Troponin T C-Reactive Protein Total Protein Albumin Prealbumin LDL Cholesterol Direct HDL Cholesterol Arterial Blood Glucose Arterial Blood Ionized Calcium Urine WBC (Auto) 04/19/20 04/19/20 04/20/20 13:41 18:33 05:56 WBC RBC Hgb Hct MCV MCH RDW Plt Count Lymph % (Auto) Roberts % (Auto) Lymph # (Auto) Roberts # (Auto) Seg Neutrophils % Seg Neuts % (Manual) Lymphocytes % (Manual) Monocytes % (Manual) Basophils % (Manual) Seg Neutrophils # Seg Neutrophils # Man Lymphocytes # (Manual) Monocytes # (Manual) Eosinophils # (Manual) Basophils # (Manual) PT INR D-Dimer ABG pH POC ABG pCO2 POC ABG pO2 ABG pO2 ABG HCO3 ABG O2 Saturation ABG Base Excess ABG Hemoglobin ABG Oxyhemoglobin ABG Potassium ABG Glucose Oxyhemoglobin Carboxyhemoglobin Sodium Potassium Chloride Carbon Dioxide BUN Creatinine Glucose POC Glucose 116 H 124 H 130 H Calcium Ferritin Total Bilirubin Alkaline Phosphatase Lactate Dehydrogenase Total Creatine Kinase CK-MB (CK-2) Rel Index Troponin T C-Reactive Protein Total Protein Albumin Prealbumin LDL Cholesterol Direct HDL Cholesterol Arterial Blood Glucose Arterial Blood Ionized Calcium Urine WBC (Auto) 04/20/20 04/20/20 04/20/20 06:28 06:28 11:46 WBC RBC Hgb 10.2 L Hct 31.5 L MCV 82 L MCH 27 L RDW 17.1 H Plt Count 546 H Lymph % (Auto) 10.0 L Roberts % (Auto) 9.8 H Lymph # (Auto) 1.1 L Roberts # (Auto) 1.1 H Seg Neutrophils % 78.4 H Seg Neuts % (Manual) Lymphocytes % (Manual) Monocytes % (Manual) Basophils % (Manual) Seg Neutrophils # 8.5 H Seg Neutrophils # Man Lymphocytes # (Manual) Monocytes # (Manual) Eosinophils # (Manual) Basophils # (Manual) PT INR D-Dimer ABG pH POC ABG pCO2 POC ABG pO2 ABG pO2 ABG HCO3 ABG O2 Saturation ABG Base Excess ABG Hemoglobin ABG Oxyhemoglobin ABG Potassium ABG Glucose Oxyhemoglobin Carboxyhemoglobin Sodium Potassium Chloride 97.0 L Carbon Dioxide 38 H BUN Creatinine < 0.2 L Glucose 138 H POC Glucose 130 H Calcium Ferritin Total Bilirubin Alkaline Phosphatase Lactate Dehydrogenase Total Creatine Kinase CK-MB (CK-2) Rel Index Troponin T C-Reactive Protein Total Protein Albumin Prealbumin LDL Cholesterol Direct HDL Cholesterol Arterial Blood Glucose Arterial Blood Ionized Calcium Urine WBC (Auto) 04/20/20 04/21/20 04/21/20 23:31 05:55 05:55 WBC RBC Hgb 10.0 L Hct 31.1 L MCV 82 L MCH 26 L RDW 17.0 H Plt Count 535 H Lymph % (Auto) Roberts % (Auto) 9.2 H Lymph # (Auto) 1.1 L Roberts # (Auto) Seg Neutrophils % 75.4 H Seg Neuts % (Manual) Lymphocytes % (Manual) Monocytes % (Manual) Basophils % (Manual) Seg Neutrophils # Seg Neutrophils # Man Lymphocytes # (Manual) Monocytes # (Manual) Eosinophils # (Manual) Basophils # (Manual) PT INR D-Dimer ABG pH POC ABG pCO2 POC ABG pO2 ABG pO2 ABG HCO3 ABG O2 Saturation ABG Base Excess ABG Hemoglobin ABG Oxyhemoglobin ABG Potassium ABG Glucose Oxyhemoglobin Carboxyhemoglobin Sodium Potassium Chloride 95.0 L Carbon Dioxide 34 H BUN Creatinine < 0.2 L Glucose 125 H POC Glucose 116 H Calcium Ferritin Total Bilirubin Alkaline Phosphatase Lactate Dehydrogenase Total Creatine Kinase CK-MB (CK-2) Rel Index Troponin T C-Reactive Protein Total Protein Albumin Prealbumin LDL Cholesterol Direct HDL Cholesterol Arterial Blood Glucose Arterial Blood Ionized Calcium Urine WBC (Auto) 04/22/20 04/22/20 04/22/20 00:01 07:45 07:45 WBC RBC Hgb 10.0 L Hct 30.7 L MCV 81 L MCH 27 L RDW 17.1 H Plt Count 490 H Lymph % (Auto) Roberts % (Auto) Lymph # (Auto) Roberts # (Auto) Seg Neutrophils % Seg Neuts % (Manual) 75.0 H Lymphocytes % (Manual) 11.0 L Monocytes % (Manual) 9.0 H Basophils % (Manual) Seg Neutrophils # Seg Neutrophils # Man Lymphocytes # (Manual) 0.8 L Monocytes # (Manual) Eosinophils # (Manual) Basophils # (Manual) PT INR D-Dimer ABG pH POC ABG pCO2 POC ABG pO2 ABG pO2 ABG HCO3 ABG O2 Saturation ABG Base Excess ABG Hemoglobin ABG Oxyhemoglobin ABG Potassium ABG Glucose Oxyhemoglobin Carboxyhemoglobin Sodium Potassium Chloride 96.3 L Carbon Dioxide 40 H BUN Creatinine < 0.2 L Glucose 109 H POC Glucose 110 H Calcium Ferritin Total Bilirubin Alkaline Phosphatase Lactate Dehydrogenase Total Creatine Kinase CK-MB (CK-2) Rel Index Troponin T C-Reactive Protein Total Protein Albumin Prealbumin LDL Cholesterol Direct HDL Cholesterol Arterial Blood Glucose Arterial Blood Ionized Calcium Urine WBC (Auto) 04/23/20 04/23/20 04/23/20 04:28 04:28 04:28 WBC RBC 3.64 L Hgb 9.7 L Hct 29.4 L MCV 81 L MCH 27 L RDW 17.2 H Plt Count 527 H Lymph % (Auto) Roberts % (Auto) 8.9 H Lymph # (Auto) Roberts # (Auto) Seg Neutrophils % Seg Neuts % (Manual) Lymphocytes % (Manual) Monocytes % (Manual) Basophils % (Manual) Seg Neutrophils # Seg Neutrophils # Man Lymphocytes # (Manual) Monocytes # (Manual) Eosinophils # (Manual) Basophils # (Manual) PT INR D-Dimer ABG pH POC ABG pCO2 POC ABG pO2 ABG pO2 ABG HCO3 ABG O2 Saturation ABG Base Excess ABG Hemoglobin ABG Oxyhemoglobin ABG Potassium ABG Glucose Oxyhemoglobin Carboxyhemoglobin Sodium Potassium Chloride 96.4 L Carbon Dioxide 32 H D BUN Creatinine < 0.2 L Glucose 134 H POC Glucose Calcium Ferritin Total Bilirubin Alkaline Phosphatase Lactate Dehydrogenase Total Creatine Kinase CK-MB (CK-2) Rel Index Troponin T 0.151 H* C-Reactive Protein Total Protein Albumin Prealbumin LDL Cholesterol Direct HDL Cholesterol 29 L Arterial Blood Glucose Arterial Blood Ionized Calcium Urine WBC (Auto) 04/23/20 04/23/20 04/24/20 06:03 23:41 05:28 WBC RBC 3.56 L Hgb 9.5 L Hct 28.9 L MCV 81 L MCH 27 L RDW 17.4 H Plt Count 462 H Lymph % (Auto) Roberts % (Auto) Lymph # (Auto) Roberts # (Auto) Seg Neutrophils % Seg Neuts % (Manual) 80.0 H Lymphocytes % (Manual) Monocytes % (Manual) Basophils % (Manual) Seg Neutrophils # Seg Neutrophils # Man Lymphocytes # (Manual) Monocytes # (Manual) Eosinophils # (Manual) Basophils # (Manual) PT INR D-Dimer ABG pH POC ABG pCO2 POC ABG pO2 ABG pO2 ABG HCO3 ABG O2 Saturation ABG Base Excess ABG Hemoglobin ABG Oxyhemoglobin ABG Potassium ABG Glucose Oxyhemoglobin Carboxyhemoglobin Sodium Potassium Chloride Carbon Dioxide BUN Creatinine Glucose POC Glucose 132 H 117 H Calcium Ferritin Total Bilirubin Alkaline Phosphatase Lactate Dehydrogenase Total Creatine Kinase CK-MB (CK-2) Rel Index Troponin T C-Reactive Protein Total Protein Albumin Prealbumin LDL Cholesterol Direct HDL Cholesterol Arterial Blood Glucose Arterial Blood Ionized Calcium Urine WBC (Auto) 04/24/20 04/24/20 04/24/20 05:28 05:28 05:33 WBC RBC Hgb Hct MCV MCH RDW Plt Count Lymph % (Auto) Roberts % (Auto) Lymph # (Auto) Roberts # (Auto) Seg Neutrophils % Seg Neuts % (Manual) Lymphocytes % (Manual) Monocytes % (Manual) Basophils % (Manual) Seg Neutrophils # Seg Neutrophils # Man Lymphocytes # (Manual) Monocytes # (Manual) Eosinophils # (Manual) Basophils # (Manual) PT INR D-Dimer ABG pH POC ABG pCO2 POC ABG pO2 ABG pO2 ABG HCO3 ABG O2 Saturation ABG Base Excess ABG Hemoglobin ABG Oxyhemoglobin ABG Potassium ABG Glucose Oxyhemoglobin Carboxyhemoglobin Sodium Potassium Chloride 96.1 L Carbon Dioxide 40 H D BUN Creatinine < 0.2 L Glucose 115 H POC Glucose 109 H Calcium Ferritin Total Bilirubin Alkaline Phosphatase Lactate Dehydrogenase Total Creatine Kinase CK-MB (CK-2) Rel Index Troponin T 0.181 H* C-Reactive Protein Total Protein Albumin Prealbumin LDL Cholesterol Direct HDL Cholesterol Arterial Blood Glucose Arterial Blood Ionized Calcium Urine WBC (Auto) 04/24/20 04/24/20 04/25/20 11:17 18:23 00:12 WBC RBC Hgb Hct MCV MCH RDW Plt Count Lymph % (Auto) Roberts % (Auto) Lymph # (Auto) Roberts # (Auto) Seg Neutrophils % Seg Neuts % (Manual) Lymphocytes % (Manual) Monocytes % (Manual) Basophils % (Manual) Seg Neutrophils # Seg Neutrophils # Man Lymphocytes # (Manual) Monocytes # (Manual) Eosinophils # (Manual) Basophils # (Manual) PT INR D-Dimer ABG pH POC ABG pCO2 POC ABG pO2 ABG pO2 ABG HCO3 ABG O2 Saturation ABG Base Excess ABG Hemoglobin ABG Oxyhemoglobin ABG Potassium ABG Glucose Oxyhemoglobin Carboxyhemoglobin Sodium Potassium Chloride Carbon Dioxide BUN Creatinine Glucose POC Glucose 117 H 109 H 113 H Calcium Ferritin Total Bilirubin Alkaline Phosphatase Lactate Dehydrogenase Total Creatine Kinase CK-MB (CK-2) Rel Index Troponin T C-Reactive Protein Total Protein Albumin Prealbumin LDL Cholesterol Direct HDL Cholesterol Arterial Blood Glucose Arterial Blood Ionized Calcium Urine WBC (Auto) 04/25/20 04/25/20 04/25/20 06:34 06:34 11:28 WBC 11.7 H RBC Hgb 10.0 L Hct 31.7 L MCV 82 L MCH 26 L RDW 17.5 H Plt Count 564 H Lymph % (Auto) Roberts % (Auto) Lymph # (Auto) Roberts # (Auto) Seg Neutrophils % Seg Neuts % (Manual) 78.0 H Lymphocytes % (Manual) 10.0 L Monocytes % (Manual) 9.0 H Basophils % (Manual) Seg Neutrophils # Seg Neutrophils # Man 9.1 H Lymphocytes # (Manual) Monocytes # (Manual) 1.1 H Eosinophils # (Manual) Basophils # (Manual) PT INR D-Dimer ABG pH POC ABG pCO2 POC ABG pO2 ABG pO2 ABG HCO3 ABG O2 Saturation ABG Base Excess ABG Hemoglobin ABG Oxyhemoglobin ABG Potassium ABG Glucose Oxyhemoglobin Carboxyhemoglobin Sodium Potassium Chloride Carbon Dioxide 39 H BUN Creatinine < 0.2 L Glucose 103 H POC Glucose 112 H Calcium Ferritin Total Bilirubin Alkaline Phosphatase Lactate Dehydrogenase Total Creatine Kinase CK-MB (CK-2) Rel Index Troponin T C-Reactive Protein Total Protein Albumin Prealbumin LDL Cholesterol Direct HDL Cholesterol Arterial Blood Glucose Arterial Blood Ionized Calcium Urine WBC (Auto) 04/27/20 04/27/20 04/27/20 11:48 17:08 23:31 WBC RBC Hgb Hct MCV MCH RDW Plt Count Lymph % (Auto) Roberts % (Auto) Lymph # (Auto) Roberts # (Auto) Seg Neutrophils % Seg Neuts % (Manual) Lymphocytes % (Manual) Monocytes % (Manual) Basophils % (Manual) Seg Neutrophils # Seg Neutrophils # Man Lymphocytes # (Manual) Monocytes # (Manual) Eosinophils # (Manual) Basophils # (Manual) PT INR D-Dimer ABG pH POC ABG pCO2 POC ABG pO2 ABG pO2 ABG HCO3 ABG O2 Saturation ABG Base Excess ABG Hemoglobin ABG Oxyhemoglobin ABG Potassium ABG Glucose Oxyhemoglobin Carboxyhemoglobin Sodium Potassium Chloride Carbon Dioxide BUN Creatinine Glucose POC Glucose 124 H 118 H 122 H Calcium Ferritin Total Bilirubin Alkaline Phosphatase Lactate Dehydrogenase Total Creatine Kinase CK-MB (CK-2) Rel Index Troponin T C-Reactive Protein Total Protein Albumin Prealbumin LDL Cholesterol Direct HDL Cholesterol Arterial Blood Glucose Arterial Blood Ionized Calcium Urine WBC (Auto) 04/28/20 04/29/20 04/29/20 05:42 00:14 05:30 WBC RBC Hgb Hct MCV MCH RDW Plt Count Lymph % (Auto) Roberts % (Auto) Lymph # (Auto) Roberts # (Auto) Seg Neutrophils % Seg Neuts % (Manual) Lymphocytes % (Manual) Monocytes % (Manual) Basophils % (Manual) Seg Neutrophils # Seg Neutrophils # Man Lymphocytes # (Manual) Monocytes # (Manual) Eosinophils # (Manual) Basophils # (Manual) PT INR D-Dimer ABG pH POC ABG pCO2 POC ABG pO2 ABG pO2 ABG HCO3 ABG O2 Saturation ABG Base Excess ABG Hemoglobin ABG Oxyhemoglobin ABG Potassium ABG Glucose Oxyhemoglobin Carboxyhemoglobin Sodium Potassium Chloride Carbon Dioxide BUN Creatinine Glucose POC Glucose 122 H 115 H 123 H Calcium Ferritin Total Bilirubin Alkaline Phosphatase Lactate Dehydrogenase Total Creatine Kinase CK-MB (CK-2) Rel Index Troponin T C-Reactive Protein Total Protein Albumin Prealbumin LDL Cholesterol Direct HDL Cholesterol Arterial Blood Glucose Arterial Blood Ionized Calcium Urine WBC (Auto) 04/30/20 05/01/20 05/01/20 00:29 05:39 12:30 WBC RBC Hgb Hct MCV MCH RDW Plt Count Lymph % (Auto) Roberts % (Auto) Lymph # (Auto) Roberts # (Auto) Seg Neutrophils % Seg Neuts % (Manual) Lymphocytes % (Manual) Monocytes % (Manual) Basophils % (Manual) Seg Neutrophils # Seg Neutrophils # Man Lymphocytes # (Manual) Monocytes # (Manual) Eosinophils # (Manual) Basophils # (Manual) PT INR D-Dimer ABG pH POC ABG pCO2 POC ABG pO2 ABG pO2 ABG HCO3 ABG O2 Saturation ABG Base Excess ABG Hemoglobin ABG Oxyhemoglobin ABG Potassium ABG Glucose Oxyhemoglobin Carboxyhemoglobin Sodium Potassium Chloride Carbon Dioxide BUN Creatinine Glucose POC Glucose 106 H 109 H 108 H Calcium Ferritin Total Bilirubin Alkaline Phosphatase Lactate Dehydrogenase Total Creatine Kinase CK-MB (CK-2) Rel Index Troponin T C-Reactive Protein Total Protein Albumin Prealbumin LDL Cholesterol Direct HDL Cholesterol Arterial Blood Glucose Arterial Blood Ionized Calcium Urine WBC (Auto) 05/01/20 05/03/20 05/03/20 23:35 05:09 11:36 WBC RBC Hgb Hct MCV MCH RDW Plt Count Lymph % (Auto) Roberts % (Auto) Lymph # (Auto) Roberts # (Auto) Seg Neutrophils % Seg Neuts % (Manual) Lymphocytes % (Manual) Monocytes % (Manual) Basophils % (Manual) Seg Neutrophils # Seg Neutrophils # Man Lymphocytes # (Manual) Monocytes # (Manual) Eosinophils # (Manual) Basophils # (Manual) PT INR D-Dimer ABG pH POC ABG pCO2 POC ABG pO2 ABG pO2 ABG HCO3 ABG O2 Saturation ABG Base Excess ABG Hemoglobin ABG Oxyhemoglobin ABG Potassium ABG Glucose Oxyhemoglobin Carboxyhemoglobin Sodium Potassium Chloride Carbon Dioxide BUN Creatinine Glucose POC Glucose 116 H 117 H 116 H Calcium Ferritin Total Bilirubin Alkaline Phosphatase Lactate Dehydrogenase Total Creatine Kinase CK-MB (CK-2) Rel Index Troponin T C-Reactive Protein Total Protein Albumin Prealbumin LDL Cholesterol Direct HDL Cholesterol Arterial Blood Glucose Arterial Blood Ionized Calcium Urine WBC (Auto) 05/03/20 05/03/20 05/03/20 14:06 14:06 23:39 WBC 12.5 H RBC Hgb 10.0 L Hct 31.2 L MCV 80 L MCH 26 L RDW 17.6 H Plt Count 488 H Lymph % (Auto) Roberts % (Auto) Lymph # (Auto) Roberts # (Auto) Seg Neutrophils % Seg Neuts % (Manual) Lymphocytes % (Manual) Monocytes % (Manual) Basophils % (Manual) Seg Neutrophils # Seg Neutrophils # Man Lymphocytes # (Manual) Monocytes # (Manual) Eosinophils # (Manual) Basophils # (Manual) PT INR D-Dimer ABG pH POC ABG pCO2 POC ABG pO2 ABG pO2 ABG HCO3 ABG O2 Saturation ABG Base Excess ABG Hemoglobin ABG Oxyhemoglobin ABG Potassium ABG Glucose Oxyhemoglobin Carboxyhemoglobin Sodium Potassium Chloride 95.4 L Carbon Dioxide 40 H BUN Creatinine < 0.2 L Glucose 121 H POC Glucose 107 H Calcium Ferritin Total Bilirubin Alkaline Phosphatase Lactate Dehydrogenase Total Creatine Kinase CK-MB (CK-2) Rel Index Troponin T C-Reactive Protein Total Protein Albumin Prealbumin LDL Cholesterol Direct HDL Cholesterol Arterial Blood Glucose Arterial Blood Ionized Calcium Urine WBC (Auto) 05/04/20 05/04/20 05/04/20 11:31 16:57 23:18 WBC RBC Hgb Hct MCV MCH RDW Plt Count Lymph % (Auto) Roberts % (Auto) Lymph # (Auto) Roberts # (Auto) Seg Neutrophils % Seg Neuts % (Manual) Lymphocytes % (Manual) Monocytes % (Manual) Basophils % (Manual) Seg Neutrophils # Seg Neutrophils # Man Lymphocytes # (Manual) Monocytes # (Manual) Eosinophils # (Manual) Basophils # (Manual) PT INR D-Dimer ABG pH POC ABG pCO2 POC ABG pO2 ABG pO2 ABG HCO3 ABG O2 Saturation ABG Base Excess ABG Hemoglobin ABG Oxyhemoglobin ABG Potassium ABG Glucose Oxyhemoglobin Carboxyhemoglobin Sodium Potassium Chloride Carbon Dioxide BUN Creatinine Glucose POC Glucose 113 H 126 H 126 H Calcium Ferritin Total Bilirubin Alkaline Phosphatase Lactate Dehydrogenase Total Creatine Kinase CK-MB (CK-2) Rel Index Troponin T C-Reactive Protein Total Protein Albumin Prealbumin LDL Cholesterol Direct HDL Cholesterol Arterial Blood Glucose Arterial Blood Ionized Calcium Urine WBC (Auto) 05/05/20 05/05/20 05/05/20 05:32 11:11 23:57 WBC RBC Hgb Hct MCV MCH RDW Plt Count Lymph % (Auto) Roberts % (Auto) Lymph # (Auto) Roberts # (Auto) Seg Neutrophils % Seg Neuts % (Manual) Lymphocytes % (Manual) Monocytes % (Manual) Basophils % (Manual) Seg Neutrophils # Seg Neutrophils # Man Lymphocytes # (Manual) Monocytes # (Manual) Eosinophils # (Manual) Basophils # (Manual) PT INR D-Dimer ABG pH POC ABG pCO2 POC ABG pO2 ABG pO2 ABG HCO3 ABG O2 Saturation ABG Base Excess ABG Hemoglobin ABG Oxyhemoglobin ABG Potassium ABG Glucose Oxyhemoglobin Carboxyhemoglobin Sodium Potassium Chloride Carbon Dioxide BUN Creatinine Glucose POC Glucose 109 H 124 H 119 H Calcium Ferritin Total Bilirubin Alkaline Phosphatase Lactate Dehydrogenase Total Creatine Kinase CK-MB (CK-2) Rel Index Troponin T C-Reactive Protein Total Protein Albumin Prealbumin LDL Cholesterol Direct HDL Cholesterol Arterial Blood Glucose Arterial Blood Ionized Calcium Urine WBC (Auto) 05/06/20 05/06/20 05/07/20 05:34 23:08 04:43 WBC RBC Hgb 10.1 L Hct 31.9 L MCV 81 L MCH 25 L RDW 17.6 H Plt Count 506 H Lymph % (Auto) Roberts % (Auto) 8.6 H Lymph # (Auto) Roberts # (Auto) 0.9 H Seg Neutrophils % Seg Neuts % (Manual) Lymphocytes % (Manual) Monocytes % (Manual) Basophils % (Manual) Seg Neutrophils # Seg Neutrophils # Man Lymphocytes # (Manual) Monocytes # (Manual) Eosinophils # (Manual) Basophils # (Manual) PT INR D-Dimer ABG pH POC ABG pCO2 POC ABG pO2 ABG pO2 ABG HCO3 ABG O2 Saturation ABG Base Excess ABG Hemoglobin ABG Oxyhemoglobin ABG Potassium ABG Glucose Oxyhemoglobin Carboxyhemoglobin Sodium Potassium Chloride Carbon Dioxide BUN Creatinine Glucose POC Glucose 121 H 107 H Calcium Ferritin Total Bilirubin Alkaline Phosphatase Lactate Dehydrogenase Total Creatine Kinase CK-MB (CK-2) Rel Index Troponin T C-Reactive Protein Total Protein Albumin Prealbumin LDL Cholesterol Direct HDL Cholesterol Arterial Blood Glucose Arterial Blood Ionized Calcium Urine WBC (Auto) 05/07/20 05/07/20 05/07/20 06:18 17:13 23:29 WBC RBC Hgb Hct MCV MCH RDW Plt Count Lymph % (Auto) Roberts % (Auto) Lymph # (Auto) Roberts # (Auto) Seg Neutrophils % Seg Neuts % (Manual) Lymphocytes % (Manual) Monocytes % (Manual) Basophils % (Manual) Seg Neutrophils # Seg Neutrophils # Man Lymphocytes # (Manual) Monocytes # (Manual) Eosinophils # (Manual) Basophils # (Manual) PT INR D-Dimer ABG pH POC ABG pCO2 POC ABG pO2 ABG pO2 ABG HCO3 ABG O2 Saturation ABG Base Excess ABG Hemoglobin ABG Oxyhemoglobin ABG Potassium ABG Glucose Oxyhemoglobin Carboxyhemoglobin Sodium Potassium Chloride Carbon Dioxide BUN Creatinine Glucose POC Glucose 121 H 122 H 114 H Calcium Ferritin Total Bilirubin Alkaline Phosphatase Lactate Dehydrogenase Total Creatine Kinase CK-MB (CK-2) Rel Index Troponin T C-Reactive Protein Total Protein Albumin Prealbumin LDL Cholesterol Direct HDL Cholesterol Arterial Blood Glucose Arterial Blood Ionized Calcium Urine WBC (Auto) 05/08/20 05/08/20 05/08/20 05:20 11:57 23:42 WBC RBC Hgb Hct MCV MCH RDW Plt Count Lymph % (Auto) Roberts % (Auto) Lymph # (Auto) Roberts # (Auto) Seg Neutrophils % Seg Neuts % (Manual) Lymphocytes % (Manual) Monocytes % (Manual) Basophils % (Manual) Seg Neutrophils # Seg Neutrophils # Man Lymphocytes # (Manual) Monocytes # (Manual) Eosinophils # (Manual) Basophils # (Manual) PT INR D-Dimer ABG pH POC ABG pCO2 POC ABG pO2 ABG pO2 ABG HCO3 ABG O2 Saturation ABG Base Excess ABG Hemoglobin ABG Oxyhemoglobin ABG Potassium ABG Glucose Oxyhemoglobin Carboxyhemoglobin Sodium Potassium Chloride Carbon Dioxide BUN Creatinine Glucose POC Glucose 121 H 113 H 135 H Calcium Ferritin Total Bilirubin Alkaline Phosphatase Lactate Dehydrogenase Total Creatine Kinase CK-MB (CK-2) Rel Index Troponin T C-Reactive Protein Total Protein Albumin Prealbumin LDL Cholesterol Direct HDL Cholesterol Arterial Blood Glucose Arterial Blood Ionized Calcium Urine WBC (Auto) 05/09/20 05:31 WBC RBC Hgb Hct MCV MCH RDW Plt Count Lymph % (Auto) Roberts % (Auto) Lymph # (Auto) Roberts # (Auto) Seg Neutrophils % Seg Neuts % (Manual) Lymphocytes % (Manual) Monocytes % (Manual) Basophils % (Manual) Seg Neutrophils # Seg Neutrophils # Man Lymphocytes # (Manual) Monocytes # (Manual) Eosinophils # (Manual) Basophils # (Manual) PT INR D-Dimer ABG pH POC ABG pCO2 POC ABG pO2 ABG pO2 ABG HCO3 ABG O2 Saturation ABG Base Excess ABG Hemoglobin ABG Oxyhemoglobin ABG Potassium ABG Glucose Oxyhemoglobin Carboxyhemoglobin Sodium Potassium Chloride Carbon Dioxide BUN Creatinine Glucose POC Glucose 66 L Calcium Ferritin Total Bilirubin Alkaline Phosphatase Lactate Dehydrogenase Total Creatine Kinase CK-MB (CK-2) Rel Index Troponin T C-Reactive Protein Total Protein Albumin Prealbumin LDL Cholesterol Direct HDL Cholesterol Arterial Blood Glucose Arterial Blood Ionized Calcium Urine WBC (Auto) Allied health notes reviewed: nursing
[2020-05-09] MEDS: D5W/0.9% NACL 1,000 ML IV SCH (11:02)
--- NOTE | 2020-05-09 15:49 | Progress Note ---
Assessment and Plan --Acute hypoxic hypercapnic respiratory failure; Intubated on mechanical ventilation. Etiology secondary to sepsis, ALS, multifocal pneumonia (Covid negative). S/p trach placement 03/07/20 --Status post cardiac arrest on 02/25, cardiac hernandez now stable --Dysphagia, status post PEG placement for tube feeding --ALS; Chronic Continue to provide supportive care --Elevated D-dimers; CTA chest, lower extremity venous Doppler both are negative Lovenox for DVT prophylaxis --Bilateral pneumonia; probably community-acquired Completed treatment ID recommendations appreciated --Sepsis secondary to pneumonia s/p empiric antibiotic --Elevated troponin; Serial cardiac enzymes, serial EKGs Echocardiogram, cardiology consult if needed --Hypernatremia Trend sodium Free water via feeding tube --Abdominal distention due to bladder outlet obstruction, resolved CT abdomen showed bladder outlet obstruction, urology consulted s/p drake placement by urology on 03/09 --Hypotension possibly from septic shock and bladder outlet obstruction improved following placing drake --Hypernatremia due to hypovolumia, resolved free water with TF --Constipation; Patient already received Dulcolax suppository and Colace Received milk of magnesia, with relief --DVT prophylaxis; Lovenox Brief history: 59-year-old male patient with significant past medical history of ALS, presented to ED with worsening shortness of breath since the morning [employer]. Patient was on a trilogy machine for breathing 18/11. EMS arrived, patient had O2 sats in the 80s. EMS attempted to place patient on their CPAP machine, however patient did not tolerate. Patient was admitted to the ICU with diagnosis of acute hypoxic respiratory failure and placed on BiPAP. Patient initially tolerated but later deteriorated with respiratory status. CTA chest showed no PE but significant for bilateral pneumonia. Doppler ultrasound also negative for DVT. COVID-19 test ordered and negative. Due to persistent hypoxia and asystolic/V. fib cardiac arrest, patient was intubated on 02/26/2020 at 1500. Patient now on mechanical ventilation in the ICU s/p trach placement and now unable to wean off from the mechanical ventilation. Patient now status post PEG placement for tube feeding. Patient most likely need long-term placement -LTAC versus SNF Daily course: 02/25/2020. CTA of the chest reveals no PE but does illustrate the bilateral pneumonia. Doppler ultrasound also negative for DVT. Blood cultures are pe nding. Await COVID-19 testing. Patient currently requiring BiPAP IPAP 24/EPAP 6 with FiO2 of 25%. Continue O2 and BiPAP as clinically indicated. ID and pulmonary consulted. 02/26/2020. Blood cultures are negative x48 hours and Covid testing negative as well. Continue antibiotics per ID recommendations for community-acquired bilateral pneumonia. Cardiology consultation for elevated troponin. Check echocardiogram. 02/27/2020. Events of yesterday noted with asystole following V. fib arrest. Patient currently on AC mode rate 20, tidal volume 400, FiO2 50% and a PEEP of 6. Follow-up echocardiogram for elevated troponin. Cardiology suspects NSTEMI Type 2 in the setting of acute resp failure. Chest CTA and BLE Dopplers neg. we will discontinue Decadron given the Covid PCR is negative. 02/28/2020. I spoke with the sister Felisa Eli who is the power of insurance attorney regarding advanced directives and she instructed me that she would like to continue with aggressive care at this time. I informed her of the guarded prognosis and high mortality/morbidity and she voiced understanding. Patient currently with AC mode ventilation rate 18, tidal volume 400, FiO2 40% and a PEEP of 6. Continue antibiotics for pneumonia. ID previously consulted. Also consult neurology with regards to ALS. 02/29/2020; patient is intubated and on CPAP patient is alert and oriented. Patient has ALS. Dr. Álvarez spoke with his sister and she wants aggressive care. Continue antibiotics for pneumonia. Neurology consulted for ALS. Prognosis poor 03/01/2020; patient is intubated and on CPAP, patient is alert and oriented. I spoke with his 2 sisters about the management plan. 03/02/2020; patient is intubated and on CPAP. Patient was alert and oriented. I spoke with Dr. mohr and he thinks patient may need mechanical ventilation, likely his disease progressed. Dr. Flowers did debridement this morning. 03/03/2020; patient is intubated and on CPAP, patient was on trilogy and BiPAP at home. Patient has ALS. on spontaneous breathing trial. Patient is alert and oriented but quadriplegic. Patient has severe bilateral pneumonia and is on cefepime and Vanco, ID is following. Patient has sacral decubitus ulcer and debridement was done by Dr. Flowers and there is no osteomyelitis. 03/05. Patient still on broad-spectrum antibiotics. Status post sacral decubitus ulcer debridements-no osteomyelitis. Patient is on AC 25/400/30% PEEP 5. No blood gas results today. 03/06. Plan for tracheostomy by surgery. Still remains intubated. Labs reviewed-sodium 150. Started on free water 200 every 8hr. trend sodium. 03/07: s/p trach placement today, patient placed back on mechanical ventilation with trach. Plan to resume tube feeding with NG tube. Continue to monitor vitals, monitor BMP. 03/08: Patient noted to have distended abdomen with low urinary output. Obtain bladder scan rule out urine retention, UA and urine culture, continue to follow clinically. 03/09: Patient noted to have low blood pressure with SBP as low as 70s. Ordered for 500 mils normal saline bolus. CT abdomen showed bladder outlet obstruction, urology consulted. 03/10: placed on drake by urology o/n, improved urine outpt. cont to monitor BMP. resuded TF - cont free water with TF. wean off from vent as tolerated. 03/11: Vitals stable. cont TF, wean off from vent as tolerated. start on 1/2 NS for hypernatremia - follow BMP 03/12: wean off vent as tolerated, plan for speech eval, cont Tf for now, cont iv fluid 03/13: unable to wean off from vent, unable to do speech therapy eval. will need PEG tube, cont supportive care for now, cont NG tube feeding 03/14: consulted GI for PEg placemnet, cont supportive care. remains on vent at night 03/15: Discussed with GI, plan for PEG tube placement possibly tomorrow. Continue supportive care and wean off from vent as tolerated. Hold Lovenox dose tonight. 03/16: family didnot consent for PEG placement yesterday. I spoke with the megan rodriguez today and she is now agreeable for PEG tube. I explained the necessity of the procedure with RN to the patient also and he nodded started on tube feeding, for the procedure. will cont supportive care. planned for PEG tube placement tomorrow. 03/17: s/p PEG placement today, patient tolerated well, cont supportive care 03/18: Started on tube feeding with new PEG tube, continue to wean off vent as tolerated 03/19: cont to monitor with supportive care, wean off vent as tolerated 03/20: Continue to wean off vent as tolerated -but failing weaning trial. Still requiring vent support at night. Currently on PEG tube for tube feed. 03/21. Pt with PSV trials with FiO@ 30%, PEEP 6, PS 10. Currently on PEG tube for tube feed. 03/22/2020. Continue PSV trials per pulmonary. Continue bronchodilators. Patient tolerating tube feedings. Continue Robinul for secretion control. 03/23/2020. Continue PSV trials per pulmonary. Continue bronchodilators. Continue Scopolamine and Robinul for secretion control. Trach care/airway management. Mobility protocols for pressure ulcer prophylaxis. LTAC evaluation per case management 03/24/2020. Continue PSV trials with current settings pressure support 10, PEEP 6 and FiO2 30%. Continue bronchodilators/nebulizer. Continue Scopolamine and Robinul for secretion control. Trach care/airway management. Mobility protocols for pressure ulcer prophylaxis. LTAC evaluation per case management 03/25/2020. Pulmonary to proceed with T-piece trials today. Continue bronchodilators/nebulizer. Continue Scopolamine and Robinul for secretion control. Trach care/airway management. Mobility protocols for pressure ulcer prophylaxis. 03/26/2020. Patient currently with PSV 10/6 at FiO2 of 30%. Continue weaning and T-piece trials per protocol. Continue bronchodilators/nebulizer. Continue Scopolamine and Robinul for secretion control. Trach care/airway management. Mobility protocols for pressure ulcer prophylaxis. Continue tube feeding with aspiration precautions. 03/27/2020. Patient currently with PSV 10/6 at FiO2 of 30%. Continue weaning and T-piece trials per protocol. Continue bronchodilators/nebulizer. Continue Scopolamine and Robinul for secretion control. Trach care/airway management. Mobility protocols for pressure ulcer prophylaxis. Continue tube feeding with aspiration precautions. 03/28. Had temp 100.7F. He has been off antibiotics. Will send blood culture, ua, urine culture and chest xray. Had chest pain overnight and trop was elevated as well. Cardiology to evaluate 03/29. Has back pain due to position. He mentions his chest pain is positional. Has no other complaints. Still on mechanical ventilation 03/30. No chest pain today. Labs reviewed. Discussed chest pain with cardiology and team advised no further work up at this time. Can follow up with cardiology in the office after hospitalization 03/31. Lidocaine patch for lower back pain. 04/01. Discharge planning underway. CM notes reviewed. Discussed with daughter 04/02. CM trying to arrange discharge. Continue PSV trials. Discussed with patients significant other 04/04/2020; CM is working for discharge arrangement. Continue PSV trials. 04/05/2020; patient was seen and evaluated this morning and no change from baseline. Continue with PSV trials. Follow with health systems analyst for discharge planning. 04/06/2020;patient was seen and evaluated this morning and no change from baseline. Continue with PSV trials. Follow with health systems analyst for discharge planning. 04/07/2020; patient was seen and evaluated this morning and no change from baseline. Continue with PSV trials. Follow with health systems analyst for discharge planning. 04/08/2020; patient is vent dependent. Discharge is per health systems analyst. 04/09/2020 patient is vent dependent, possible LTAC placement 04/10/2020; tracheostomy on vent, vent dependent pending LTAC placement 04/11/2020; clinically no change, tracheostomy on ventilatory support, wean as tolerated, awaiting placement 04/12/2020; remains on ventilatory support, unable to wean, patient wants to see a speech therapist for sound box However we cannot try that as long as he is on ventilatory support, once he is weaned off vent We will consult speech therapist, plan of care reviewed with the patient and his nurse 04/14/2020; clinically no change, on ventilatory support, complains of constipation, milk of magnesia Closely monitor the patient and adjust the management as needed 04/15/2020; patient has some oral thrush on the tongue, will give Magic mouthwash/nystatin swish and spit Wean off vent as tolerated 04/16 patient is alert and oriented, unable to comprehend what he is trying to tell but appears to complain of some pain, no acute events overnight, all interdisciplinary notes reviewed. Waiting for LTAC versus retirement facility placement 04/17/2020. Continue supportive care with mechanical ventilation. Patient currently on AC mode rate 10, tidal volume 400 FiO2 30% with a PEEP of 6. Discharge planning per case management. 04/18/2020. Patient remains on mechanical ventilation AC mode rate 10, tidal volume 400, FiO2 30% and PEEP of 6. Continue spontaneous breathing trials as tolerated. Previously, patient was considered for discharge home with skilled staff providing care for 12 hours 7 days/week. Continue discussed with case management discharge planning. 04/19/20. Patient remains on mechanical ventilation AC mode rate 10, tidal volume 400, FiO2 30% and PEEP of 6. Continue spontaneous breathing trials as tolerated. 04/20/2020. Patient remains on mechanical ventilation AC mode rate 10, tidal volume 400, FiO2 30% and PEEP of 6. Continue spontaneous breathing trials as tolerated. 04/21/2020. Patient remains on mechanical ventilation AC mode rate 10, tidal volume 400, FiO2 30% and PEEP of 6. Continue tracheostomy care, secretion control and airway management. Continue spontaneous breathing trials as tolerated. 04/22/2020. Patient remains on mechanical ventilation AC mode rate 10, tidal volume 400, FiO2 30% and PEEP of 6. Continue tracheostomy care, secretion control and airway management. Continue spontaneous breathing trials as tolera milana. 04/23/2020. Patient on mechanical ventilation AC mode rate 18, tidal volume 450, FiO2 30% and PEEP of 6. Continue tracheostomy care, secretion control and airway management. Continue spontaneous breathing trials as tolerated. Continue Robinul and scopolamine for secretions. Continue baclofen. 04/24/2020. Patient remains on AC mode ventilation rate 10, tidal volume 400, FiO2 30% and PEEP of 6. Continue tracheostomy care, secretion control and airway management. Continue spontaneous breathing trials as tolerated. Continue Robinul and scopolamine for secretions. Continue baclofen. Continue Xanax for anxiety and Ambien for sleep. Await case management follow-up with regards to discharge planning. 04/25/2020. Patient remains on AC mode ventilation rate 10, tidal volume 400, FiO2 30% and PEEP of 6. Continue tracheostomy care, secretion control and airway management. Continue spontaneous breathing trials as tolerated. Continue Robinul and scopolamine for secretions. Continue baclofen. Continue Xanax for anxiety and Ambien for sleep. Await case management follow-up with regards to discharge planning. 04/26. Patient remains on AC mode ventilation rate 10, tidal volume 400, FiO2 30% and PEEP of 6. Continue tracheostomy care, secretion control and airway management. Continue spontaneous breathing trials as tolerated. Continue Robinul and scopolamine for secretions. Continue baclofen. Continue Xanax for anxiety and Ambien for sleep. Await case management follow-up with regards to discharge planning. 04/27. Patient remains on AC mode ventilation rate 10, tidal volume 400, FiO2 30% and PEEP of 6. Continue tracheostomy care, secretion control and airway management. Continue spontaneous breathing trials as tolerated. Continue Robinul and scopolamine for secretions. Continue baclofen. Continue Xanax for anxiety and Ambien for sleep. Await case management follow-up with regards to discharge planning. 04/28/20 no acute events overnight, remains vent dependent, cardiology and pulmonary notes reviewed 04/29 remains intubated via tracheostomy, no acute events 04/30 no acute events overnight, cardiology note reviewed, remains vent dependent, discharge planning per case management 05/01 stable. cardiology and pulmonary notes reviewed. D/C acu-checks 05/02 - todate: Clinically stable, CM working on placement. Continue supportive care. Subjective Date of service: 05/09/20 Principal diagnosis: Ac on Ch Hypercapnic & hypoxemic Resp Failure; Severe Sepsis; Jamar PNA; ALS Interval history: Patient seen and examined Remains on trach tube Discussed with RN at the bedside Vitals reviewed -BP stable Tolerating tube feeding with PEG tube Objective - Exam Narrative Exam: GENERAL: Awake. Intubated with trach tube HEAD: No signs of head trauma. EYES: Pupils are equal. Extraocular motions intact. EARS: Hearing grossly intact. MOUTH: Oropharynx is normal. NECK: No adenopathy, no JVD. CHEST: Coarse breath sounds bilaterally CARDIAC: Regular rate and rhythm. S1 and S2, without murmurs, gallops, or rubs. VASCULAR: No Edema. Peripheral pulses normal and equal in all extremities. ABDOMEN: Soft, non tender and nondistended. Bowel Sounds normal. PEG in place NEUROLOGIC EXAM: Awake, paraplegic SKIN: No obvious lesions - Constitutional Vitals: Vital Signs - 12hr 05/09/20 05/09/20 05/09/20 04:00 04:48 05:00 Temperature 98.4 F Pulse Rate 118 H 116 H 114 H Pulse Rate [ 118 H From Monitor] Respiratory 20 15 Rate Blood Pressure 109/62 109/62 106/69 O2 Sat by Pulse 98 97 94 Oximetry O2 Sat by Pulse Oximetry [ Assessment] 05/09/20 05/09/20 05/09/20 06:00 07:00 08:00 Temperature 98.6 F Pulse Rate 113 H 105 H 104 H Pulse Rate [ 102 H From Monitor] Respiratory 19 21 17 Rate Blood Pressure 108/71 107/78 111/79 O2 Sat by Pulse 95 98 97 Oximetry O2 Sat by Pulse Oximetry [ Assessment] 05/09/20 05/09/20 05/09/20 09:00 09:13 10:00 Temperature Pulse Rate 98 H 92 H 114 H Pulse Rate [ From Monitor] Respiratory 22 21 18 Rate Blood Pressure 117/73 117/73 110/70 O2 Sat by Pulse 96 100 93 Oximetry O2 Sat by Pulse Oximetry [ Assessment] 05/09/20 05/09/20 05/09/20 11:00 11:26 11:42 Temperature Pulse Rate 97 H 95 H 96 H Pulse Rate [ From Monitor] Respiratory 19 19 23 Rate Blood Pressure 110/70 99/77 99/77 O2 Sat by Pulse 99 99 99 Oximetry O2 Sat by Pulse Oximetry [ Assessment] 05/09/20 05/09/20 05/09/20 11:44 12:00 13:00 Temperature 98.2 F Pulse Rate 99 H 100 H Pulse Rate [ 98 H From Monitor] Respiratory 23 25 H Rate Blood Pressure 109/81 113/80 O2 Sat by Pulse 98 98 Oximetry O2 Sat by Pulse 99 Oximetry [ Assessment] 05/09/20 05/09/20 14:00 15:01 Temperature Pulse Rate 104 H 103 H Pulse Rate [ From Monitor] Respiratory 15 23 Rate Blood Pressure 107/77 107/77 O2 Sat by Pulse 99 100 Oximetry O2 Sat by Pulse Oximetry [ Assessment] - Labs CBC & Chem 7: 05/07/20 04:43 05/09/20 16:06 Labs: Abnormal lab results 05/08/20 05/09/20 05/09/20 Range/Units 23:42 05:31 11:11 POC Glucose 135 H 66 L 127 H (70-105) mg/dL HEART Score - HEART Score Troponin: Troponin T 0.181 ng/mL (0.00-0.029) H* 04/24/20 05:28
[2020-05-09 16:42] LABS: Blood Urea Nitrogen 14 mg/dL (9-20); Hemolysis Index 1
[2020-05-09 16:49] LABS: BUN/Creatinine Ratio 70
[2020-05-09] MEDS: ZOLPIDEM 5 MG TAB PO PRN (22:28)
[2020-05-09] MEDS: MAGNESIUM HYDROXIDE (MOM) ORAL LIQD UDC PO PRN (22:28)
[2020-05-09] MEDS: ENOXAPARIN 40 MG/0.4 ML INJ SUB-Q SCH (22:28)
[2020-05-09] MEDS: SENNOSIDES 8.6 MG TAB PO SCH (22:29)
[2020-05-09] MEDS: diphenhydrAMINE 25 MG/10 ML ORAL LIQUID FEEDTUBE PRN (22:32)
[2020-05-10] MEDS: MORPHINE 2 MG/1 ML INJ IV PRN ×3 (05:13→22:39)
[2020-05-10] MEDS: ALPRAZolam 0.5 MG TAB PO PRN ×3 (05:51→22:37)
[2020-05-10] MEDS: diphenhydrAMINE 25 MG/10 ML ORAL LIQUID FEEDTUBE PRN ×3 (05:51→22:38)
[2020-05-10] MEDS: ASPIRIN EC 81 MG TAB PO SCH (10:45)
[2020-05-10] MEDS: DOCUSATE SODIUM 100 MG/10 ML ORAL LIQD FEEDTUBE SCH ×2 (10:45→22:38)
[2020-05-10] MEDS: TAMSULOSIN 0.4 MG CAP PO SCH (10:46)
[2020-05-10] MEDS: METOPROLOL TARTRATE 25 MG TAB PO SCH ×2 (10:46→22:38)
[2020-05-10] MEDS: LANSOPRAZOLE 30 MG SOLUTAB FEEDTUBE SCH (10:46)
[2020-05-10] MEDS: BACLOFEN 10 MG TAB PO SCH ×2 (10:46→22:37)
[2020-05-10] MEDS: PREGABALIN 75 MG CAP PO SCH ×2 (10:46→22:37)
[2020-05-10] MEDS: GLYCOPYRROLATE 1 MG TAB PO SCH ×3 (10:46→20:02)
[2020-05-10] MEDS: LIDOCAINE 5% 1 EACH PATCH TD SCH (10:47)
[2020-05-10] MEDS: SODIUM HYPOCHLORITE, DAKIN'S 1/2 STRENGTH (0.25%) 473 ML TOPICAL SOLN TP SCH ×2 (10:47→22:40)
[2020-05-10] MEDS: MAGIC MOUTHWASH 30ML PO SCH ×3 (10:49→20:02)
[2020-05-10] MEDS: D5W/0.9% NACL 1,000 ML IV SCH (15:38)
--- NOTE | 2020-05-10 15:55 | Progress Note ---
Assessment and Plan --Acute hypoxic hypercapnic respiratory failure; Intubated on mechanical ventilation. Etiology secondary to sepsis, ALS, multifocal pneumonia (Covid negative). S/p trach placement 03/07/20 --Status post cardiac arrest on 02/25, cardiac hernandez now stable --Dysphagia, status post PEG placement for tube feeding --ALS; Chronic Continue to provide supportive care --Elevated D-dimers; CTA chest, lower extremity venous Doppler both are negative Lovenox for DVT prophylaxis --Bilateral pneumonia; probably community-acquired Completed treatment ID recommendations appreciated --Sepsis secondary to pneumonia s/p empiric antibiotic --Elevated troponin; Serial cardiac enzymes, serial EKGs Echocardiogram, cardiology consult if needed --Hypernatremia Trend sodium Free water via feeding tube --Abdominal distention due to bladder outlet obstruction, resolved CT abdomen showed bladder outlet obstruction, urology consulted s/p drake placement by urology on 03/09 --Hypotension possibly from septic shock and bladder outlet obstruction improved following placing drake --Hypernatremia due to hypovolumia, resolved free water with TF --Constipation; Patient already received Dulcolax suppository and Colace Received milk of magnesia, with relief --DVT prophylaxis; Lovenox Brief history: 59-year-old male patient with significant past medical history of ALS, presented to ED 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 Patient was on a trilogy machine for breathing 18/11. EMS arrived, patient had O2 sats in the 80s. EMS attempted to place patient on their CPAP machine, however patient did not tolerate. Patient was admitted to the ICU with diagnosis of acute hypoxic respiratory failure and placed on BiPAP. Patient initially tolerated but later deteriorated with respiratory status. CTA chest showed no PE but significant for bilateral pneumonia. Doppler ultrasound also negative for DVT. COVID-19 test ordered and negative. Due to persistent hypoxia and asystolic/V. fib cardiac arrest, patient was intubated on 02/26/2020 at 1500. Patient now on mechanical ventilation in the ICU s/p trach placement and now unable to wean off from the mechanical ventilation. Patient now status post PEG placement for tube feeding. Patient most likely need long-term placement -LTAC versus SNF Daily course: 02/25/2020. CTA of the chest reveals no PE but does illustrate the bilateral pneumonia. Doppler ultrasound also negative for DVT. Blood cultures are pe nding. Await COVID-19 testing. Patient currently requiring BiPAP IPAP 24/EPAP 6 with FiO2 of 25%. Continue O2 and BiPAP as clinically indicated. ID and pulmonary consulted. 02/26/2020. Blood cultures are negative x48 hours and Covid testing negative as well. Continue antibiotics per ID recommendations for community-acquired bilateral pneumonia. Cardiology consultation for elevated troponin. Check echocardiogram. 02/27/2020. Events of yesterday noted with asystole following V. fib arrest. Patient currently on AC mode rate 20, tidal volume 400, FiO2 50% and a PEEP of 6. Follow-up echocardiogram for elevated troponin. Cardiology suspects NSTEMI Type 2 in the setting of acute resp failure. Chest CTA and BLE Dopplers neg. we will discontinue Decadron given the Covid PCR is negative. 02/28/2020. I spoke with the sister Felisa Eli who is the power of assistant county attorney regarding advanced directives and she instructed me that she would like to continue with aggressive care at this time. I informed her of the guarded prognosis and high mortality/morbidity and she voiced understanding. Patient currently with AC mode ventilation rate 18, tidal volume 400, FiO2 40% and a PEEP of 6. Continue antibiotics for pneumonia. ID previously consulted. Also consult neurology with regards to ALS. 02/29/2020; patient is intubated and on CPAP patient is alert and oriented. Patient has ALS. Dr. Álvarez spoke with his sister and she wants aggressive care. Continue antibiotics for pneumonia. Neurology consulted for ALS. Prognosis poor 03/01/2020; patient is intubated and on CPAP, patient is alert and oriented. I spoke with his 2 sisters about the management plan. 03/02/2020; patient is intubated and on CPAP. Patient was alert and oriented. I spoke with Dr. mohr and he thinks patient may need mechanical ventilation, likely his disease progressed. Dr. Flowers did debridement this morning. 03/03/2020; patient is intubated and on CPAP, patient was on trilogy and BiPAP at home. Patient has ALS. on spontaneous breathing trial. Patient is alert and oriented but quadriplegic. Patient has severe bilateral pneumonia and is on cefepime and Vanco, ID is following. Patient has sacral decubitus ulcer and debridement was done by Dr. Flowers and there is no osteomyelitis. 03/05. Patient still on broad-spectrum antibiotics. Status post sacral decubitus ulcer debridements-no osteomyelitis. Patient is on AC 25/400/30% PEEP 5. No blood gas results today. 03/06. Plan for tracheostomy by surgery. Still remains intubated. Labs reviewed-sodium 150. Started on free water 200 every 8hr. trend sodium. 03/07: s/p trach placement today, patient placed back on mechanical ventilation with trach. Plan to resume tube feeding with NG tube. Continue to monitor vitals, monitor BMP. 03/08: Patient noted to have distended abdomen with low urinary output. Obtain bladder scan rule out urine retention, UA and urine culture, continue to follow clinically. 03/09: Patient noted to have low blood pressure with SBP as low as 70s. Ordered for 500 mils normal saline bolus. CT abdomen showed bladder outlet obstruction, urology consulted. 03/10: placed on drake by urology o/n, improved urine outpt. cont to monitor BMP. resuded TF - cont free water with TF. wean off from vent as tolerated. 03/11: Vitals stable. cont TF, wean off from vent as tolerated. start on 1/2 NS for hypernatremia - follow BMP 03/12: wean off vent as tolerated, plan for speech eval, cont Tf for now, cont iv fluid 03/13: unable to wean off from vent, unable to do speech therapy eval. will need PEG tube, cont supportive care for now, cont NG tube feeding 03/14: consulted GI for PEg placemnet, cont supportive care. remains on vent at night 03/15: Discussed with GI, plan for PEG tube placement possibly tomorrow. Continue supportive care and wean off from vent as tolerated. Hold Lovenox dose tonight. 03/16: family didnot consent for PEG placement yesterday. I spoke with the megan rodriguez today and she is now agreeable for PEG tube. I explained the necessity of the procedure with RN to the patient also and he nodded started on tube feeding, for the procedure. will cont supportive care. planned for PEG tube placement tomorrow. 03/17: s/p PEG placement today, patient tolerated well, cont supportive care 03/18: Started on tube feeding with new PEG tube, continue to wean off vent as tolerated 03/19: cont to monitor with supportive care, wean off vent as tolerated 03/20: Continue to wean off vent as tolerated -but failing weaning trial. Still requiring vent support at night. Currently on PEG tube for tube feed. 03/21. Pt with PSV trials with FiO@ 30%, PEEP 6, PS 10. Currently on PEG tube for tube feed. 03/22/2020. Continue PSV trials per pulmonary. Continue bronchodilators. Patient tolerating tube feedings. Continue Robinul for secretion control. 03/23/2020. Continue PSV trials per pulmonary. Continue bronchodilators. Continue Scopolamine and Robinul for secretion control. Trach care/airway management. Mobility protocols for pressure ulcer prophylaxis. LTAC evaluation per case management 03/24/2020. Continue PSV trials with current settings pressure support 10, PEEP 6 and FiO2 30%. Continue bronchodilators/nebulizer. Continue Scopolamine and Robinul for secretion control. Trach care/airway management. Mobility protocols for pressure ulcer prophylaxis. LTAC evaluation per case management 03/25/2020. Pulmonary to proceed with T-piece trials today. Continue bronchodilators/nebulizer. Continue Scopolamine and Robinul for secretion control. Trach care/airway management. Mobility protocols for pressure ulcer prophylaxis. 03/26/2020. Patient currently with PSV 10/6 at FiO2 of 30%. Continue weaning and T-piece trials per protocol. Continue bronchodilators/nebulizer. Continue Scopolamine and Robinul for secretion control. Trach care/airway management. Mobility protocols for pressure ulcer prophylaxis. Continue tube feeding with aspiration precautions. 03/27/2020. Patient currently with PSV 10/6 at FiO2 of 30%. Continue weaning and T-piece trials per protocol. Continue bronchodilators/nebulizer. Continue Scopolamine and Robinul for secretion control. Trach care/airway management. Mobility protocols for pressure ulcer prophylaxis. Continue tube feeding with aspiration precautions. 03/28. Had temp 100.7F. He has been off antibiotics. Will send blood culture, ua, urine culture and chest xray. Had chest pain overnight and trop was elevated as well. Cardiology to evaluate 03/29. Has back pain due to position. He mentions his chest pain is positional. Has no other complaints. Still on mechanical ventilation 03/30. No chest pain today. Labs reviewed. Discussed chest pain with cardiology and team advised no further work up at this time. Can follow up with cardiology in the office after hospitalization 03/31. Lidocaine patch for lower back pain. 04/01. Discharge planning underway. CM notes reviewed. Discussed with daughter 04/02. CM trying to arrange discharge. Continue PSV trials. Discussed with patients significant other 04/04/2020; CM is working for discharge arrangement. Continue PSV trials. 04/05/2020; patient was seen and evaluated this morning and no change from baseline. Continue with PSV trials. Follow with program director substance abuse for discharge planning. 04/06/2020;patient was seen and evaluated this morning and no change from baseline. Continue with PSV trials. Follow with program director substance abuse for discharge planning. 04/07/2020; patient was seen and evaluated this morning and no change from baseline. Continue with PSV trials. Follow with program director substance abuse for discharge planning. 04/08/2020; patient is vent dependent. Discharge is per program director substance abuse. 04/09/2020 patient is vent dependent, possible LTAC placement 04/10/2020; tracheostomy on vent, vent dependent pending LTAC placement 04/11/2020; clinically no change, tracheostomy on ventilatory support, wean as tolerated, awaiting placement 04/12/2020; remains on ventilatory support, unable to wean, patient wants to see a speech therapist for sound box However we cannot try that as long as he is on ventilatory support, once he is weaned off vent We will consult speech therapist, plan of care reviewed with the patient and his nurse 04/14/2020; clinically no change, on ventilatory support, complains of constipation, milk of magnesia Closely monitor the patient and adjust the management as needed 04/15/2020; patient has some oral thrush on the tongue, will give Magic mouthwash/nystatin swish and spit Wean off vent as tolerated 04/16 patient is alert and oriented, unable to comprehend what he is trying to tell but appears to complain of some pain, no acute events overnight, all interdisciplinary notes reviewed. Waiting for LTAC versus [facility] facility placement 04/17/2020. Continue supportive care with mechanical ventilation. Patient currently on AC mode rate 10, tidal volume 400 FiO2 30% with a PEEP of 6. Discharge planning per case management. 04/18/2020. Patient remains on mechanical ventilation AC mode rate 10, tidal volume 400, FiO2 30% and PEEP of 6. Continue spontaneous breathing trials as tolerated. Previously, patient was considered for discharge home with skilled staff providing care for 12 hours 7 days/week. Continue discussed with case management discharge planning. 04/19/20. Patient remains on mechanical ventilation AC mode rate 10, tidal volume 400, FiO2 30% and PEEP of 6. Continue spontaneous breathing trials as tolerated. 04/20/2020. Patient remains on mechanical ventilation AC mode rate 10, tidal volume 400, FiO2 30% and PEEP of 6. Continue spontaneous breathing trials as tolerated. 04/21/2020. Patient remains on mechanical ventilation AC mode rate 10, tidal volume 400, FiO2 30% and PEEP of 6. Continue tracheostomy care, secretion control and airway management. Continue spontaneous breathing trials as tolerated. 04/22/2020. Patient remains on mechanical ventilation AC mode rate 10, tidal volume 400, FiO2 30% and PEEP of 6. Continue tracheostomy care, secretion control and airway management. Continue spontaneous breathing trials as tolera milana. 04/23/2020. Patient on mechanical ventilation AC mode rate 18, tidal volume 450, FiO2 30% and PEEP of 6. Continue tracheostomy care, secretion control and airway management. Continue spontaneous breathing trials as tolerated. Continue Robinul and scopolamine for secretions. Continue baclofen. 04/24/2020. Patient remains on AC mode ventilation rate 10, tidal volume 400, FiO2 30% and PEEP of 6. Continue tracheostomy care, secretion control and airway management. Continue spontaneous breathing trials as tolerated. Continue Robinul and scopolamine for secretions. Continue baclofen. Continue Xanax for anxiety and Ambien for sleep. Await case management follow-up with regards to discharge planning. 04/25/2020. Patient remains on AC mode ventilation rate 10, tidal volume 400, FiO2 30% and PEEP of 6. Continue tracheostomy care, secretion control and airway management. Continue spontaneous breathing trials as tolerated. Continue Robinul and scopolamine for secretions. Continue baclofen. Continue Xanax for anxiety and Ambien for sleep. Await case management follow-up with regards to discharge planning. 04/26. Patient remains on AC mode ventilation rate 10, tidal volume 400, FiO2 30% and PEEP of 6. Continue tracheostomy care, secretion control and airway management. Continue spontaneous breathing trials as tolerated. Continue Robinul and scopolamine for secretions. Continue baclofen. Continue Xanax for anxiety and Ambien for sleep. Await case management follow-up with regards to discharge planning. 04/27. Patient remains on AC mode ventilation rate 10, tidal volume 400, FiO2 30% and PEEP of 6. Continue tracheostomy care, secretion control and airway management. Continue spontaneous breathing trials as tolerated. Continue Robinul and scopolamine for secretions. Continue baclofen. Continue Xanax for anxiety and Ambien for sleep. Await case management follow-up with regards to discharge planning. 04/28/20 no acute events overnight, remains vent dependent, cardiology and pulmonary notes reviewed 04/29 remains intubated via tracheostomy, no acute events 04/30 no acute events overnight, cardiology note reviewed, remains vent dependent, discharge planning per case management 05/01 stable. cardiology and pulmonary notes reviewed. D/C acu-checks 05/02 - todate: Clinically stable, CM working on placement. Continue supportive care. Subjective Date of service: 05/10/20 Principal diagnosis: Ac on Ch Hypercapnic & hypoxemic Resp Failure; Severe Sepsis; Jamar PNA; ALS Interval history: Patient seen and examined Remains on trach tube Discussed with RN at the bedside Vitals reviewed -BP stable Tolerating tube feeding with PEG tube Objective - Exam Narrative Exam: GENERAL: Awake. Intubated with trach tube HEAD: No signs of head trauma. EYES: Pupils are equal. Extraocular motions intact. EARS: Hearing grossly intact. MOUTH: Oropharynx is normal. NECK: No adenopathy, no JVD. CHEST: Coarse breath sounds bilaterally CARDIAC: Regular rate and rhythm. S1 and S2, without murmurs, gallops, or rubs. VASCULAR: No Edema. Peripheral pulses normal and equal in all extremities. ABDOMEN: Soft, non tender and nondistended. Bowel Sounds normal. PEG in place NEUROLOGIC EXAM: Awake, paraplegic SKIN: No obvious lesions - Constitutional Vitals: Vital Signs - 12hr 05/10/20 05/10/20 05/10/20 04:00 05:00 05:13 Temperature 98.4 F Pulse Rate 109 H 115 H Respiratory 20 23 14 Rate Blood Pressure 114/83 122/79 O2 Sat by Pulse 94 93 Oximetry O2 Sat by Pulse Oximetry [ Assessment] 05/10/20 05/10/20 05/10/20 05:43 05:46 06:00 Temperature Pulse Rate 115 H 122 H Respiratory 16 19 Rate Blood Pressure 122/77 122/79 O2 Sat by Pulse 98 98 Oximetry O2 Sat by Pulse Oximetry [ Assessment] 05/10/20 05/10/20 05/10/20 07:00 07:52 08:00 Temperature 98.9 F Pulse Rate 109 H 113 H 109 H Respiratory 15 23 23 Rate Blood Pressure 129/84 126/86 126/86 O2 Sat by Pulse 94 98 96 Oximetry O2 Sat by Pulse Oximetry [ Assessment] 05/10/20 05/10/20 05/10/20 09:00 09:33 10:00 Temperature Pulse Rate 114 H 115 H 127 H Respiratory 26 H 27 H Rate Blood Pressure 117/83 117/83 133/92 O2 Sat by Pulse 95 97 95 Oximetry O2 Sat by Pulse Oximetry [ Assessment] 05/10/20 05/10/20 05/10/20 10:46 11:00 12:00 Temperature 98.4 F Pulse Rate 126 H 126 H 101 H Respiratory 29 H 19 Rate Blood Pressure 133/92 143/95 150/105 O2 Sat by Pulse 94 93 Oximetry O2 Sat by Pulse Oximetry [ Assessment] 05/10/20 05/10/20 05/10/20 12:42 13:00 14:45 Temperature Pulse Rate 98 H 98 H Respiratory 25 H 24 Rate Blood Pressure 150/105 127/93 O2 Sat by Pulse 98 98 Oximetry O2 Sat by Pulse 99 Oximetry [ Assessment] 05/10/20 15:05 Temperature Pulse Rate 113 H Respiratory Rate Blood Pressure 172/116 O2 Sat by Pulse 96 Oximetry O2 Sat by Pulse Oximetry [ Assessment] - Labs CBC & Chem 7: 05/07/20 04:43 05/09/20 16:06 Labs: Abnormal lab results 05/09/20 05/09/20 05/10/20 Range/Units 16:06 23:19 04:59 Sodium 136 L (137-145) mmol/L Chloride 97.0 L (98-107) mmol/L Carbon Dioxide 34 H (22-30) mmol/L Creatinine < 0.2 L (0.8-1.3) mg/dL Glucose 107 H (75-100) mg/dL POC Glucose 108 H 126 H (70-105) mg/dL 05/10/20 Range/Units 11:28 Sodium (137-145) mmol/L Chloride (98-107) mmol/L Carbon Dioxide (22-30) mmol/L Creatinine (0.8-1.3) mg/dL Glucose (75-100) mg/dL POC Glucose 124 H (70-105) mg/dL HEART Score - HEART Score Troponin: Troponin T 0.181 ng/mL (0.00-0.029) H* 04/24/20 05:28
--- NOTE | 2020-05-10 18:39 | Progress Note ---
Assessment and Plan Patient awake. Patient is on Pressure support ventilation, pressure support 10, FIO2 30%, PEEP 6 and O2 saturation running 96%. Recommend Continue spontaneous breathing trials as tolerated.Respiratory therapy told me, Patient Not tolearing T tube trial ' Recommend to decrease pressure support to 5.Patient afebrile and has leukocytosis. Chest xray done 05/02/20 reported Interval worsening of right lung base opacity now appears to be pleural parenchymal. This may be a worsened infectious process or development of right-sided pleural effusion and worsened right lung base atelectasis. Left lung base opacity is stable. Tracheostomy in stable position. Patient right lung base infiltrate reported intervel worsening, patient has no leukocytosis, recommend to place him antibiotic like zosyn. Repeating chest xray and ABGs. - Patient Problems (1) Acute on chronic respiratory failure with hypoxia and hypercapnia Current Visit: Yes Status: Acute Plan to address problem: Patient is resting on Pressure support 10, FIO2 30%, PEEP 6. Albuterol inhaler 2 puffs po qid. Continue S/C Lovenox. Continue prevacid. Recommend to decrease pressure support 5. (2) Bleeding from wound Current Visit: Yes Status: Acute Plan to address problem: Management primary care , surgery and wound care. (3) Elevated d-dimer Current Visit: Yes Status: Acute Plan to address problem: Patients venous doppler studies of legs, CTA chest reported Negative for VTE. Patient is on S/C Lovenox 40 mg qd. (4) Elevated troponin Current Visit: Yes Status: Acute Plan to address problem: Management as per primary care and cardiology (5) NSTEMI (non-ST elevated myocardial infarction) Current Visit: Yes Status: Acute Plan to address problem: Management as per cardiology. (6) Pneumonia Current Visit: Yes Status: Acute Qualifiers: Laterality: bilateral Plan to address problem: Patient afebrile . Has mild leukocytosis. Repeat Chest xray done 05/02/20 reported Interval worsening of right lung base opacity now appears to be pleural parenchymal. This may be a worsened infectious process or development of right-sided pleural effusion and worsened right lung base atelectasis. Left lung base opacity is stable. Tracheostomy in stable position. Patient right lung base infiltrate reported intervel worsening, patient has no leukocytosis, recommend to place him antibiotic like zosyn. Repeating chest xray and ABGs. Subjective Date of service: 05/10/20 Principal diagnosis: Ac on Ch Hypercapnic & hypoxemic Resp Failure; Severe Sepsis; Jamar PNA; ALS Interval history: Patient awake. Patient is on Pressure support ventilation, pressure support 10, FIO2 30%, PEEP 6 and O2 saturation running 96%. Recommend Continue spontaneous breathing trials as tolerated.Respiratory therapy told me, Patient Not tolearing T tube trial ' Recommend to decrease pressure support to 5.Patient afebrile and has leukocytosis. Chest xray done 05/02/20 reported Interval worsening of right lung base opacity now appears to be pleural parenchymal. This may be a worsened infectious process or development of right-sided pleural effusion and worsened right lung base atelectasis. Left lung base opacity is stable. Tracheostomy in stable position. Patient right lung base infiltrate reported intervel worsening, patient has no leukocytosis, recommend to place him antibiotic like zosyn. Repeating chest xray and ABGs. Objective Vital Signs - 12hr 05/10/20 05/10/20 05/10/20 07:00 07:52 08:00 Temperature 98.9 F Pulse Rate 109 H 113 H 109 H Respiratory 15 23 23 Rate Blood Pressure 129/84 126/86 126/86 O2 Sat by Pulse 94 98 96 Oximetry O2 Sat by Pulse Oximetry [ Assessment] 05/10/20 05/10/20 05/10/20 09:00 09:33 10:00 Temperature Pulse Rate 114 H 115 H 127 H Respiratory 26 H 27 H Rate Blood Pressure 117/83 117/83 133/92 O2 Sat by Pulse 95 97 95 Oximetry O2 Sat by Pulse Oximetry [ Assessment] 05/10/20 05/10/20 05/10/20 10:46 11:00 12:00 Temperature 98.4 F Pulse Rate 126 H 126 H 101 H Respiratory 29 H 19 Rate Blood Pressure 133/92 143/95 150/105 O2 Sat by Pulse 94 93 Oximetry O2 Sat by Pulse Oximetry [ Assessment] 05/10/20 05/10/20 05/10/20 12:42 13:00 14:00 Temperature Pulse Rate 98 H 98 H 105 H Respiratory 25 H 24 19 Rate Blood Pressure 150/105 127/93 164/110 O2 Sat by Pulse 98 98 90 Oximetry O2 Sat by Pulse Oximetry [ Assessment] 05/10/20 05/10/20 05/10/20 14:45 15:00 15:05 Temperature Pulse Rate 105 H 113 H Respiratory 17 Rate Blood Pressure 172/116 172/116 O2 Sat by Pulse 98 96 Oximetry O2 Sat by Pulse 99 Oximetry [ Assessment] 05/10/20 05/10/20 05/10/20 16:00 17:00 18:00 Temperature 98.1 F Pulse Rate 119 H 118 H 119 H Respiratory 17 15 16 Rate Blood Pressure 128/90 135/93 135/93 O2 Sat by Pulse 97 98 98 Oximetry O2 Sat by Pulse Oximetry [ Assessment] Constitutional: no acute distress, alert, other (thin middle aged male with normal respiratory effort at rest on MVS) Eyes: non-icteric ENT: oropharynx moist, other (S/P Tracheostomy) Neck: supple, no lymphadenopathy, no JVD Effort: mildly labored Ascultation: Bilateral: diminished breath sounds, wheezes, rhonchi (scant in bases) Percussion: Bilateral: not dull Cardiovascular: regular rate and rhythm, other (S1,S2, no murmurs) Gastrointestinal: normoactive bowel sounds, soft, non-tender, non-distended, other (+ distended but non tender suprapubis) Integumentary: normal, decubitus ulcer (sacral / gluteal) Extremities: no cyanosis, no edema, pulses normal, other (atrophic looking limbs) Neurologic: pupils equal and round, other (motor strength in extremities 1-2/5, awake, alert, mouths words to make needs known) Psychiatric: mood appropriate, affect normal CBC and BMP: 05/07/20 04:43 05/09/20 16:06 ABG, PT/INR, D-dimer: ABG ABG pH 7.371 (7.320-7.450) 03/08/20 12:34 POC ABG pCO2 63.1 mmHg (32.0-48.0) H 03/08/20 12:34 ABG pCO2 60.1 mm Hg 03/06/20 04:34 POC ABG pO2 90.5 mmHg (83-108) 03/08/20 12:34 ABG pO2 88.6 mm Hg (80.0-90.0) 03/06/20 04:34 POC ABG HCO3 35.7 03/08/20 12:34 ABG O2 Saturation 97.0 % (95.0-99.0) 03/06/20 04:34 PT/INR, D-dimer PT 15.6 Sec. (12.2-14.9) H 02/24/20 09:19 INR 1.21 (0.87-1.13) H 02/24/20 09:19 D-Dimer 1311.96 ng/mlDDU (0-234) H 02/24/20 09:19 Abnormal lab findings: Abnormal Labs 02/24/20 02/24/20 02/24/20 09:19 09:19 09:19 WBC 20.2 H RBC 5.05 H Hgb Hct MCV MCH RDW 15.3 H Plt Count Lymph % (Auto) Oliver % (Auto) Lymph # (Auto) Oliver # (Auto) Seg Neutrophils % Seg Neuts % (Manual) 86.0 H Lymphocytes % (Manual) 1.0 L Monocytes % (Manual) Basophils % (Manual) Seg Neutrophils # Seg Neutrophils # Man 17.4 H Lymphocytes # (Manual) 0.2 L Monocytes # (Manual) Eosinophils # (Manual) Basophils # (Manual) PT 15.6 H INR 1.21 H D-Dimer 1311.96 H ABG pH POC ABG pCO2 POC ABG pO2 ABG pO2 ABG HCO3 ABG O2 Saturation ABG Base Excess ABG Hemoglobin ABG Oxyhemoglobin ABG Potassium ABG Glucose Oxyhemoglobin Carboxyhemoglobin Sodium 135 L Potassium 3.2 L Chloride 92.2 L Carbon Dioxide BUN 6 L Creatinine < 0.2 L Glucose 124 H POC Glucose Calcium Ferritin Total Bilirubin 2.30 H Alkaline Phosphatase 132 H Lactate Dehydrogenase Total Creatine Kinase CK-MB (CK-2) Rel Index Troponin T 0.080 H C-Reactive Protein Total Protein Albumin 3.6 L Prealbumin LDL Cholesterol Direct 41 L HDL Cholesterol Arterial Blood Glucose Arterial Blood Ionized Calcium Urine WBC (Auto) 02/24/20 02/24/20 02/24/20 09:19 09:58 10:01 WBC RBC Hgb Hct MCV MCH RDW Plt Count Lymph % (Auto) Oliver % (Auto) Lymph # (Auto) Oliver # (Auto) Seg Neutrophils % Seg Neuts % (Manual) Lymphocytes % (Manual) Monocytes % (Manual) Basophils % (Manual) Seg Neutrophils # Seg Neutrophils # Man Lymphocytes # (Manual) Monocytes # (Manual) Eosinophils # (Manual) Basophils # (Manual) PT INR D-Dimer ABG pH 7.176 L* POC ABG pCO2 POC ABG pO2 ABG pO2 91.2 H ABG HCO3 ABG O2 Saturation ABG Base Excess -4.6 L ABG Hemoglobin ABG Oxyhemoglobin ABG Potassium ABG Glucose Oxyhemoglobin 92.6 L Carboxyhemoglobin Sodium Potassium Chloride Carbon Dioxide BUN Creatinine Glucose POC Glucose Calcium Ferritin 1715.0 H Total Bilirubin Alkaline Phosphatase Lactate Dehydrogenase 303 H Total Creatine Kinase CK-MB (CK-2) Rel Index Troponin T C-Reactive Protein 26.10 H Total Protein Albumin Prealbumin LDL Cholesterol Direct HDL Cholesterol Arterial Blood Glucose Arterial Blood Ionized Calcium Urine WBC (Auto) 02/24/20 02/24/20 02/24/20 11:52 13:45 19:35 WBC RBC Hgb Hct MCV MCH RDW Plt Count Lymph % (Auto) Oliver % (Auto) Lymph # (Auto) Oliver # (Auto) Seg Neutrophils % Seg Neuts % (Manual) Lymphocytes % (Manual) Monocytes % (Manual) Basophils % (Manual) Seg Neutrophils # Seg Neutrophils # Man Lymphocytes # (Manual) Monocytes # (Manual) Eosinophils # (Manual) Basophils # (Manual) PT INR D-Dimer ABG pH 7.051 L* 7.300 L POC ABG pCO2 POC ABG pO2 ABG pO2 94.7 H 75.1 L ABG HCO3 18.0 L ABG O2 Saturation 93.5 L ABG Base Excess -6.8 L -7.8 L ABG Hemoglobin 13.2 L 11.9 L ABG Oxyhemoglobin ABG Potassium ABG Glucose Oxyhemoglobin 91.0 L 92.7 L Carboxyhemoglobin Sodium Potassium Chloride Carbon Dioxide BUN Creatinine Glucose POC Glucose Calcium Ferritin Total Bilirubin Alkaline Phosphatase Lactate Dehydrogenase Total Creatine Kinase CK-MB (CK-2) Rel Index Troponin T 0.034 H D C-Reactive Protein Total Protein Albumin Prealbumin LDL Cholesterol Direct HDL Cholesterol Arterial Blood Glucose Arterial Blood Ionized Calcium Urine WBC (Auto) 02/25/20 02/25/20 02/25/20 04:00 04:00 12:26 WBC 22.9 H RBC Hgb Hct MCV 83 L MCH 27 L RDW Plt Count 468 H Lymph % (Auto) Oliver % (Auto) Lymph # (Auto) Oliver # (Auto) Seg Neutrophils % Seg Neuts % (Manual) 89.0 H Lymphocytes % (Manual) 7.0 L Monocytes % (Manual) Basophils % (Manual) Seg Neutrophils # Seg Neutrophils # Man 20.4 H Lymphocytes # (Manual) Monocytes # (Manual) Eosinophils # (Manual) Basophils # (Manual) PT INR D-Dimer ABG pH POC ABG pCO2 POC ABG pO2 ABG pO2 ABG HCO3 ABG O2 Saturation ABG Base Excess ABG Hemoglobin ABG Oxyhemoglobin ABG Potassium 2.6 L ABG Glucose 142 H Oxyhemoglobin Carboxyhemoglobin Sodium Potassium 3.2 L Chloride Carbon Dioxide 18 L BUN Creatinine 0.2 L Glucose 114 H POC Glucose Calcium Ferritin Total Bilirubin Alkaline Phosphatase Lactate Dehydrogenase Total Creatine Kinase CK-MB (CK-2) Rel Index Troponin T C-Reactive Protein Total Protein Albumin 3.5 L Prealbumin LDL Cholesterol Direct HDL Cholesterol Arterial Blood Glucose 142 H Arterial Blood Ionized Calcium Urine WBC (Auto) 02/26/20 02/26/20 02/26/20 15:58 17:00 23:43 WBC RBC Hgb Hct MCV MCH RDW Plt Count Lymph % (Auto) Oliver % (Auto) Lymph # (Auto) Oliver # (Auto) Seg Neutrophils % Seg Neuts % (Manual) Lymphocytes % (Manual) Monocytes % (Manual) Basophils % (Manual) Seg Neutrophils # Seg Neutrophils # Man Lymphocytes # (Manual) Monocytes # (Manual) Eosinophils # (Manual) Basophils # (Manual) PT INR D-Dimer ABG pH 7.502 H POC ABG pCO2 POC ABG pO2 213.6 H ABG pO2 ABG HCO3 ABG O2 Saturation ABG Base Excess ABG Hemoglobin ABG Oxyhemoglobin 99.2 H ABG Potassium 2.9 L ABG Glucose 160 H Oxyhemoglobin Carboxyhemoglobin 0.4 L Sodium Potassium Chloride Carbon Dioxide BUN Creatinine Glucose POC Glucose 189 H 120 H Calcium Ferritin Total Bilirubin Alkaline Phosphatase Lactate Dehydrogenase Total Creatine Kinase CK-MB (CK-2) Rel Index Troponin T C-Reactive Protein Total Protein Albumin Prealbumin LDL Cholesterol Direct HDL Cholesterol Arterial Blood Glucose 160 H Arterial Blood Ionized Calcium 4.5 L Urine WBC (Auto) 02/27/20 02/27/20 02/27/20 05:00 07:04 17:45 WBC RBC Hgb Hct MCV MCH RDW Plt Count Lymph % (Auto) Oliver % (Auto) Lymph # (Auto) Oliver # (Auto) Seg Neutrophils % Seg Neuts % (Manual) Lymphocytes % (Manual) Monocytes % (Manual) Basophils % (Manual) Seg Neutrophils # Seg Neutrophils # Man Lymphocytes # (Manual) Monocytes # (Manual) Eosinophils # (Manual) Basophils # (Manual) PT INR D-Dimer ABG pH 7.524 H POC ABG pCO2 POC ABG pO2 ABG pO2 ABG HCO3 ABG O2 Saturation ABG Base Excess ABG Hemoglobin ABG Oxyhemoglobin ABG Potassium 3.0 L ABG Glucose 143 H Oxyhemoglobin Carboxyhemoglobin Sodium Potassium Chloride Carbon Dioxide BUN Creatinine Glucose POC Glucose 154 H 175 H Calcium Ferritin Total Bilirubin Alkaline Phosphatase Lactate Dehydrogenase Total Creatine Kinase CK-MB (CK-2) Rel Index Troponin T C-Reactive Protein Total Protein Albumin Prealbumin LDL Cholesterol Direct HDL Cholesterol Arterial Blood Glucose 143 H Arterial Blood Ionized Calcium Urine WBC (Auto) 02/27/20 02/28/20 02/28/20 Unknown 00:21 04:15 WBC 18.7 H RBC Hgb Hct MCV MCH RDW Plt Count Lymph % (Auto) 8.7 L Oliver % (Auto) Lymph # (Auto) Oliver # (Auto) 1.2 H Seg Neutrophils % 84.6 H Seg Neuts % (Manual) Lymphocytes % (Manual) Monocytes % (Manual) Basophils % (Manual) Seg Neutrophils # 15.9 H Seg Neutrophils # Man Lymphocytes # (Manual) Monocytes # (Manual) Eosinophils # (Manual) Basophils # (Manual) PT INR D-Dimer ABG pH POC ABG pCO2 POC ABG pO2 ABG pO2 ABG HCO3 ABG O2 Saturation ABG Base Excess ABG Hemoglobin ABG Oxyhemoglobin ABG Potassium ABG Glucose Oxyhemoglobin Carboxyhemoglobin Sodium Potassium 2.9 L* Chloride Carbon Dioxide 33 H D BUN Creatinine < 0.2 L Glucose 157 H POC Glucose 134 H Calcium Ferritin Total Bilirubin Alkaline Phosphatase Lactate Dehydrogenase Total Creatine Kinase CK-MB (CK-2) Rel Index Troponin T C-Reactive Protein Total Protein Albumin Prealbumin LDL Cholesterol Direct HDL Cholesterol Arterial Blood Glucose Arterial Blood Ionized Calcium Urine WBC (Auto) 02/28/20 02/28/20 02/28/20 04:15 05:16 05:39 WBC RBC Hgb Hct MCV MCH RDW Plt Count Lymph % (Auto) Oliver % (Auto) Lymph # (Auto) Oliver # (Auto) Seg Neutrophils % Seg Neuts % (Manual) Lymphocytes % (Manual) Monocytes % (Manual) Basophils % (Manual) Seg Neutrophils # Seg Neutrophils # Man Lymphocytes # (Manual) Monocytes # (Manual) Eosinophils # (Manual) Basophils # (Manual) PT INR D-Dimer ABG pH POC ABG pCO2 POC ABG pO2 ABG pO2 142.9 H ABG HCO3 34.1 H ABG O2 Saturation ABG Base Excess 8.3 H ABG Hemoglobin ABG Oxyhemoglobin ABG Potassium ABG Glucose Oxyhemoglobin Carboxyhemoglobin Sodium 151 H Potassium Chloride Carbon Dioxide 32 H BUN Creatinine 0.2 L Glucose 167 H POC Glucose 138 H Calcium Ferritin Total Bilirubin Alkaline Phosphatase Lactate Dehydrogenase Total Creatine Kinase CK-MB (CK-2) Rel Index Troponin T C-Reactive Protein Total Protein Albumin Prealbumin LDL Cholesterol Direct HDL Cholesterol Arterial Blood Glucose Arterial Blood Ionized Calcium Urine WBC (Auto) 02/28/20 02/28/20 02/28/20 11:05 11:33 12:54 WBC RBC Hgb Hct MCV MCH RDW Plt Count Lymph % (Auto) Oliver % (Auto) Lymph # (Auto) Oliver # (Auto) Seg Neutrophils % Seg Neuts % (Manual) Lymphocytes % (Manual) Monocytes % (Manual) Basophils % (Manual) Seg Neutrophils # Seg Neutrophils # Man Lymphocytes # (Manual) Monocytes # (Manual) Eosinophils # (Manual) Basophils # (Manual) PT INR D-Dimer ABG pH POC ABG pCO2 POC ABG pO2 ABG pO2 ABG HCO3 ABG O2 Saturation ABG Base Excess ABG Hemoglobin ABG Oxyhemoglobin ABG Potassium ABG Glucose Oxyhemoglobin Carboxyhemoglobin Sodium Potassium Chloride Carbon Dioxide BUN Creatinine Glucose POC Glucose 160 H Calcium Ferritin Total Bilirubin Alkaline Phosphatase Lactate Dehydrogenase Total Creatine Kinase CK-MB (CK-2) Rel Index Troponin T C-Reactive Protein 4.70 H Total Protein Albumin Prealbumin 0.090 L LDL Cholesterol Direct HDL Cholesterol Arterial Blood Glucose Arterial Blood Ionized Calcium Urine WBC (Auto) 02/28/20 02/29/20 02/29/20 17:34 00:44 04:05 WBC 19.6 H RBC Hgb Hct MCV MCH 27 L RDW 15.4 H Plt Count Lymph % (Auto) Oliver % (Auto) Lymph # (Auto) Oliver # (Auto) Seg Neutrophils % Seg Neuts % (Manual) 86.0 H Lymphocytes % (Manual) 7.0 L Monocytes % (Manual) Basophils % (Manual) Seg Neutrophils # Seg Neutrophils # Man 16.9 H Lymphocytes # (Manual) Monocytes # (Manual) 1.2 H Eosinophils # (Manual) Basophils # (Manual) PT INR D-Dimer ABG pH POC ABG pCO2 POC ABG pO2 ABG pO2 ABG HCO3 ABG O2 Saturation ABG Base Excess ABG Hemoglobin ABG Oxyhemoglobin ABG Potassium ABG Glucose Oxyhemoglobin Carboxyhemoglobin Sodium Potassium Chloride Carbon Dioxide BUN Creatinine Glucose POC Glucose 136 H 156 H Calcium Ferritin Total Bilirubin Alkaline Phosphatase Lactate Dehydrogenase Total Creatine Kinase CK-MB (CK-2) Rel Index Troponin T C-Reactive Protein Total Protein Albumin Prealbumin LDL Cholesterol Direct HDL Cholesterol Arterial Blood Glucose Arterial Blood Ionized Calcium Urine WBC (Auto) 02/29/20 02/29/20 02/29/20 04:05 05:14 05:33 WBC RBC Hgb Hct MCV MCH RDW Plt Count Lymph % (Auto) Oliver % (Auto) Lymph # (Auto) Oliver # (Auto) Seg Neutrophils % Seg Neuts % (Manual) Lymphocytes % (Manual) Monocytes % (Manual) Basophils % (Manual) Seg Neutrophils # Seg Neutrophils # Man Lymphocytes # (Manual) Monocytes # (Manual) Eosinophils # (Manual) Basophils # (Manual) PT INR D-Dimer ABG pH POC ABG pCO2 54.3 H POC ABG pO2 124.8 H ABG pO2 ABG HCO3 ABG O2 Saturation ABG Base Excess ABG Hemoglobin ABG Oxyhemoglobin ABG Potassium ABG Glucose 185 H Oxyhemoglobin Carboxyhemoglobin Sodium 148 H Potassium Chloride Carbon Dioxide 33 H BUN Creatinine < 0.2 L Glucose 173 H POC Glucose 152 H Calcium Ferritin Total Bilirubin Alkaline Phosphatase Lactate Dehydrogenase Total Creatine Kinase CK-MB (CK-2) Rel Index Troponin T C-Reactive Protein Total Protein Albumin Prealbumin LDL Cholesterol Direct HDL Cholesterol Arterial Blood Glucose 185 H Arterial Blood Ionized Calcium Urine WBC (Auto) 03/01/20 03/01/20 03/01/20 00:00 03:45 04:33 WBC 23.1 H RBC Hgb Hct MCV MCH 27 L RDW 15.3 H Plt Count Lymph % (Auto) Oliver % (Auto) Lymph # (Auto) Oliver # (Auto) Seg Neutrophils % Seg Neuts % (Manual) 92.0 H Lymphocytes % (Manual) 6.0 L Monocytes % (Manual) Basophils % (Manual) Seg Neutrophils # Seg Neutrophils # Man 21.3 H Lymphocytes # (Manual) Monocytes # (Manual) Eosinophils # (Manual) 0.5 H Basophils # (Manual) PT INR D-Dimer ABG pH 7.492 H POC ABG pCO2 POC ABG pO2 ABG pO2 157.1 H ABG HCO3 32.3 H ABG O2 Saturation ABG Base Excess 8.1 H ABG Hemoglobin 13.2 L ABG Oxyhemoglobin ABG Potassium ABG Glucose Oxyhemoglobin Carboxyhemoglobin Sodium Potassium Chloride Carbon Dioxide BUN Creatinine Glucose POC Glucose 109 H Calcium Ferritin Total Bilirubin Alkaline Phosphatase Lactate Dehydrogenase Total Creatine Kinase CK-MB (CK-2) Rel Index Troponin T C-Reactive Protein Total Protein Albumin Prealbumin LDL Cholesterol Direct HDL Cholesterol Arterial Blood Glucose Arterial Blood Ionized Calcium Urine WBC (Auto) 03/01/20 03/01/20 03/01/20 04:33 05:29 12:32 WBC RBC Hgb Hct MCV MCH RDW Plt Count Lymph % (Auto) Oliver % (Auto) Lymph # (Auto) Oliver # (Auto) Seg Neutrophils % Seg Neuts % (Manual) Lymphocytes % (Manual) Monocytes % (Manual) Basophils % (Manual) Seg Neutrophils # Seg Neutrophils # Man Lymphocytes # (Manual) Monocytes # (Manual) Eosinophils # (Manual) Basophils # (Manual) PT INR D-Dimer ABG pH POC ABG pCO2 POC ABG pO2 ABG pO2 ABG HCO3 ABG O2 Saturation ABG Base Excess ABG Hemoglobin ABG Oxyhemoglobin ABG Potassium ABG Glucose Oxyhemoglobin Carboxyhemoglobin Sodium 146 H Potassium Chloride Carbon Dioxide 32 H BUN Creatinine < 0.2 L Glucose 120 H POC Glucose 120 H 128 H Calcium Ferritin Total Bilirubin Alkaline Phosphatase Lactate Dehydrogenase Total Creatine Kinase CK-MB (CK-2) Rel Index Troponin T C-Reactive Protein Total Protein Albumin Prealbumin LDL Cholesterol Direct HDL Cholesterol Arterial Blood Glucose Arterial Blood Ionized Calcium Urine WBC (Auto) 03/01/20 03/01/20 03/02/20 17:38 23:46 06:13 WBC RBC Hgb Hct MCV MCH RDW Plt Count Lymph % (Auto) [place] % (Auto) Lymph # (Auto) Oliver # (Auto) Seg Neutrophils % Seg Neuts % (Manual) Lymphocytes % (Manual) Monocytes % (Manual) Basophils % (Manual) Seg Neutrophils # Seg Neutrophils # Man Lymphocytes # (Manual) Monocytes # (Manual) Eosinophils # (Manual) Basophils # (Manual) PT INR D-Dimer ABG pH POC ABG pCO2 POC ABG pO2 ABG pO2 ABG HCO3 ABG O2 Saturation ABG Base Excess ABG Hemoglobin ABG Oxyhemoglobin ABG Potassium ABG Glucose Oxyhemoglobin Carboxyhemoglobin Sodium Potassium Chloride Carbon Dioxide BUN Creatinine Glucose POC Glucose 114 H 121 H 120 H Calcium Ferritin Total Bilirubin Alkaline Phosphatase Lactate Dehydrogenase Total Creatine Kinase CK-MB (CK-2) Rel Index Troponin T C-Reactive Protein Total Protein Albumin Prealbumin LDL Cholesterol Direct HDL Cholesterol Arterial Blood Glucose Arterial Blood Ionized Calcium Urine WBC (Auto) 03/02/20 03/02/20 03/03/20 09:47 09:47 10:21 WBC 23.6 H RBC Hgb Hct MCV MCH RDW 15.3 H Plt Count 494 H Lymph % (Auto) Oliver % (Auto) Lymph # (Auto) Oliver # (Auto) Seg Neutrophils % Seg Neuts % (Manual) 85.0 H Lymphocytes % (Manual) 6.0 L Monocytes % (Manual) Basophils % (Manual) Seg Neutrophils # Seg Neutrophils # Man 20.1 H Lymphocytes # (Manual) Monocytes # (Manual) 1.7 H Eosinophils # (Manual) Basophils # (Manual) PT INR D-Dimer ABG pH POC ABG pCO2 POC ABG pO2 ABG pO2 ABG HCO3 ABG O2 Saturation ABG Base Excess ABG Hemoglobin ABG Oxyhemoglobin ABG Potassium 3.3 L ABG Glucose 158 H Oxyhemoglobin Carboxyhemoglobin Sodium Potassium Chloride Carbon Dioxide BUN Creatinine < 0.2 L Glucose 177 H POC Glucose Calcium Ferritin Total Bilirubin Alkaline Phosphatase Lactate Dehydrogenase Total Creatine Kinase CK-MB (CK-2) Rel Index Troponin T C-Reactive Protein Total Protein Albumin Prealbumin LDL Cholesterol Direct HDL Cholesterol Arterial Blood Glucose 158 H Arterial Blood Ionized Calcium Urine WBC (Auto) 03/03/20 03/04/20 03/04/20 21:30 00:00 12:23 WBC RBC Hgb Hct MCV MCH RDW Plt Count Lymph % (Auto) [place] % (Auto) Lymph # (Auto) Oliver # (Auto) Seg Neutrophils % Seg Neuts % (Manual) Lymphocytes % (Manual) Monocytes % (Manual) Basophils % (Manual) Seg Neutrophils # Seg Neutrophils # Man Lymphocytes # (Manual) Monocytes # (Manual) Eosinophils # (Manual) Basophils # (Manual) PT INR D-Dimer ABG pH 7.328 L POC ABG pCO2 POC ABG pO2 ABG pO2 68.4 L ABG HCO3 35.0 H ABG O2 Saturation 93.9 L ABG Base Excess 6.8 H ABG Hemoglobin 12.7 L ABG Oxyhemoglobin ABG Potassium ABG Glucose Oxyhemoglobin 91.9 L Carboxyhemoglobin Sodium Potassium Chloride Carbon Dioxide BUN Creatinine Glucose POC Glucose 187 H 163 H Calcium Ferritin Total Bilirubin Alkaline Phosphatase Lactate Dehydrogenase Total Creatine Kinase CK-MB (CK-2) Rel Index Troponin T C-Reactive Protein Total Protein Albumin Prealbumin LDL Cholesterol Direct HDL Cholesterol Arterial Blood Glucose Arterial Blood Ionized Calcium Urine WBC (Auto) 03/04/20 03/04/20 03/05/20 18:15 21:30 06:02 WBC RBC Hgb Hct MCV MCH RDW Plt Count Lymph % (Auto) [place] % (Auto) Lymph # (Auto) Oliver # (Auto) Seg Neutrophils % Seg Neuts % (Manual) Lymphocytes % (Manual) Monocytes % (Manual) Basophils % (Manual) Seg Neutrophils # Seg Neutrophils # Man Lymphocytes # (Manual) Monocytes # (Manual) Eosinophils # (Manual) Basophils # (Manual) PT INR D-Dimer ABG pH 7.297 L POC ABG pCO2 POC ABG pO2 ABG pO2 ABG HCO3 41.0 H ABG O2 Saturation ABG Base Excess 11.0 H ABG Hemoglobin 13.1 L ABG Oxyhemoglobin ABG Potassium ABG Glucose Oxyhemoglobin 94.5 L Carboxyhemoglobin Sodium Potassium Chloride Carbon Dioxide BUN Creatinine Glucose POC Glucose 192 H 127 H Calcium Ferritin Total Bilirubin Alkaline Phosphatase Lactate Dehydrogenase Total Creatine Kinase CK-MB (CK-2) Rel Index Troponin T C-Reactive Protein Total Protein Albumin Prealbumin LDL Cholesterol Direct HDL Cholesterol Arterial Blood Glucose Arterial Blood Ionized Calcium Urine WBC (Auto) 03/05/20 03/05/20 03/06/20 12:09 16:42 00:24 WBC RBC Hgb Hct MCV MCH RDW Plt Count Lymph % (Auto) [place] % (Auto) Lymph # (Auto) Oliver # (Auto) Seg Neutrophils % Seg Neuts % (Manual) Lymphocytes % (Manual) Monocytes % (Manual) Basophils % (Manual) Seg Neutrophils # Seg Neutrophils # Man Lymphocytes # (Manual) Monocytes # (Manual) Eosinophils # (Manual) Basophils # (Manual) PT INR D-Dimer ABG pH POC ABG pCO2 POC ABG pO2 ABG pO2 ABG HCO3 ABG O2 Saturation ABG Base Excess ABG Hemoglobin ABG Oxyhemoglobin ABG Potassium ABG Glucose Oxyhemoglobin Carboxyhemoglobin Sodium Potassium Chloride Carbon Dioxide BUN Creatinine Glucose POC Glucose 147 H 114 H 134 H Calcium Ferritin Total Bilirubin Alkaline Phosphatase Lactate Dehydrogenase Total Creatine Kinase CK-MB (CK-2) Rel Index Troponin T C-Reactive Protein Total Protein Albumin Prealbumin LDL Cholesterol Direct HDL Cholesterol Arterial Blood Glucose Arterial Blood Ionized Calcium Urine WBC (Auto) 03/06/20 03/06/20 03/06/20 04:34 05:53 06:08 WBC 25.4 H RBC Hgb 10.5 L Hct 32.7 L MCV MCH 27 L RDW 15.3 H Plt Count 634 H Lymph % (Auto) [place] % (Auto) Lymph # (Auto) Oliver # (Auto) Seg Neutrophils % Seg Neuts % (Manual) 88.0 H Lymphocytes % (Manual) 2.0 L Monocytes % (Manual) 8.0 H Basophils % (Manual) Seg Neutrophils # Seg Neutrophils # Man 22.4 H Lymphocytes # (Manual) 0.5 L Monocytes # (Manual) 2.0 H Eosinophils # (Manual) Basophils # (Manual) PT INR D-Dimer ABG pH POC ABG pCO2 POC ABG pO2 ABG pO2 ABG HCO3 37.9 H ABG O2 Saturation ABG Base Excess 11.4 H ABG Hemoglobin 10.6 L ABG Oxyhemoglobin ABG Potassium ABG Glucose Oxyhemoglobin 94.7 L Carboxyhemoglobin Sodium Potassium Chloride Carbon Dioxide BUN Creatinine Glucose POC Glucose 135 H Calcium Ferritin Total Bilirubin Alkaline Phosphatase Lactate Dehydrogenase Total Creatine Kinase CK-MB (CK-2) Rel Index Troponin T C-Reactive Protein Total Protein Albumin Prealbumin LDL Cholesterol Direct HDL Cholesterol Arterial Blood Glucose Arterial Blood Ionized Calcium Urine WBC (Auto) 03/06/20 03/06/20 03/06/20 06:08 12:19 19:10 WBC RBC Hgb Hct MCV MCH RDW Plt Count Lymph % (Auto) [place] % (Auto) Lymph # (Auto) [place] # (Auto) Seg Neutrophils % Seg Neuts % (Manual) Lymphocytes % (Manual) Monocytes % (Manual) Basophils % (Manual) Seg Neutrophils # Seg Neutrophils # Man Lymphocytes # (Manual) Monocytes # (Manual) Eosinophils # (Manual) Basophils # (Manual) PT INR D-Dimer ABG pH POC ABG pCO2 POC ABG pO2 ABG pO2 ABG HCO3 ABG O2 Saturation ABG Base Excess ABG Hemoglobin ABG Oxyhemoglobin ABG Potassium ABG Glucose Oxyhemoglobin Carboxyhemoglobin Sodium 150 H D Potassium Chloride Carbon Dioxide 39 H D BUN 23 H Creatinine < 0.2 L Glucose 144 H POC Glucose 169 H 152 H Calcium Ferritin Total Bilirubin Alkaline Phosphatase Lactate Dehydrogenase Total Creatine Kinase CK-MB (CK-2) Rel Index Troponin T C-Reactive Protein Total Protein Albumin 3.3 L Prealbumin LDL Cholesterol Direct HDL Cholesterol Arterial Blood Glucose Arterial Blood Ionized Calcium Urine WBC (Auto) 03/06/20 03/07/20 03/07/20 23:58 04:25 04:25 WBC 22.1 H RBC Hgb 10.9 L Hct 32.9 L MCV MCH RDW 15.5 H Plt Count 739 H Lymph % (Auto) 7.8 L [place] % (Auto) Lymph # (Auto) [place] # (Auto) 1.3 H Seg Neutrophils % 85.5 H Seg Neuts % (Manual) Lymphocytes % (Manual) Monocytes % (Manual) Basophils % (Manual) Seg Neutrophils # 18.9 H Seg Neutrophils # Man Lymphocytes # (Manual) Monocytes # (Manual) Eosinophils # (Manual) Basophils # (Manual) PT INR D-Dimer ABG pH POC ABG pCO2 POC ABG pO2 ABG pO2 ABG HCO3 ABG O2 Saturation ABG Base Excess ABG Hemoglobin ABG Oxyhemoglobin ABG Potassium ABG Glucose Oxyhemoglobin Carboxyhemoglobin Sodium 146 H Potassium Chloride Carbon Dioxide 37 H BUN Creatinine < 0.2 L Glucose 118 H POC Glucose 111 H Calcium Ferritin Total Bilirubin Alkaline Phosphatase Lactate Dehydrogenase Total Creatine Kinase CK-MB (CK-2) Rel Index Troponin T C-Reactive Protein Total Protein Albumin 3.7 L Prealbumin LDL Cholesterol Direct HDL Cholesterol Arterial Blood Glucose Arterial Blood Ionized Calcium Urine WBC (Auto) 03/07/20 03/07/20 03/07/20 05:20 17:45 23:32 WBC RBC Hgb Hct MCV MCH RDW Plt Count Lymph % (Auto) [place] % (Auto) Lymph # (Auto) [place] # (Auto) Seg Neutrophils % Seg Neuts % (Manual) Lymphocytes % (Manual) Monocytes % (Manual) Basophils % (Manual) Seg Neutrophils # Seg Neutrophils # Man Lymphocytes # (Manual) Monocytes # (Manual) Eosinophils # (Manual) Basophils # (Manual) PT INR D-Dimer ABG pH POC ABG pCO2 POC ABG pO2 ABG pO2 ABG HCO3 ABG O2 Saturation ABG Base Excess ABG Hemoglobin ABG Oxyhemoglobin ABG Potassium ABG Glucose Oxyhemoglobin Carboxyhemoglobin Sodium Potassium Chloride Carbon Dioxide BUN Creatinine Glucose POC Glucose 113 H 124 H 210 H Calcium Ferritin Total Bilirubin Alkaline Phosphatase Lactate Dehydrogenase Total Creatine Kinase CK-MB (CK-2) Rel Index Troponin T C-Reactive Protein Total Protein Albumin Prealbumin LDL Cholesterol Direct HDL Cholesterol Arterial Blood Glucose Arterial Blood Ionized Calcium Urine WBC (Auto) 03/08/20 03/08/20 03/08/20 05:35 06:43 06:43 WBC 28.9 H RBC 3.53 L Hgb 9.7 L Hct 30.3 L MCV MCH RDW 15.6 H Plt Count 578 H Lymph % (Auto) [place] % (Auto) Lymph # (Auto) [place] # (Auto) Seg Neutrophils % Seg Neuts % (Manual) 93.0 H Lymphocytes % (Manual) 4.0 L Monocytes % (Manual) Basophils % (Manual) Seg Neutrophils # Seg Neutrophils # Man 26.9 H Lymphocytes # (Manual) Monocytes # (Manual) Eosinophils # (Manual) Basophils # (Manual) PT INR D-Dimer ABG pH POC ABG pCO2 POC ABG pO2 ABG pO2 ABG HCO3 ABG O2 Saturation ABG Base Excess ABG Hemoglobin ABG Oxyhemoglobin ABG Potassium ABG Glucose Oxyhemoglobin Carboxyhemoglobin Sodium 146 H Potassium Chloride Carbon Dioxide 35 H BUN 34 H Creatinine 0.3 L D Glucose 125 H POC Glucose 147 H Calcium Ferritin Total Bilirubin Alkaline Phosphatase Lactate Dehydrogenase Total Creatine Kinase CK-MB (CK-2) Rel Index Troponin T C-Reactive Protein Total Protein 5.9 L Albumin 3.2 L Prealbumin LDL Cholesterol Direct HDL Cholesterol Arterial Blood Glucose Arterial Blood Ionized Calcium Urine WBC (Auto) 03/08/20 03/08/20 03/08/20 08:57 11:14 12:34 WBC RBC Hgb Hct MCV MCH RDW Plt Count Lymph % (Auto) [place] % (Auto) Lymph # (Auto) [place] # (Auto) Seg Neutrophils % Seg Neuts % (Manual) Lymphocytes % (Manual) Monocytes % (Manual) Basophils % (Manual) Seg Neutrophils # Seg Neutrophils # Man Lymphocytes # (Manual) Monocytes # (Manual) Eosinophils # (Manual) Basophils # (Manual) PT INR D-Dimer ABG pH POC ABG pCO2 63.1 H POC ABG pO2 ABG pO2 ABG HCO3 ABG O2 Saturation ABG Base Excess ABG Hemoglobin 10.9 L ABG Oxyhemoglobin ABG Potassium ABG Glucose 176 H Oxyhemoglobin Carboxyhemoglobin Sodium Potassium Chloride Carbon Dioxide BUN Creatinine Glucose POC Glucose 171 H Calcium Ferritin Total Bilirubin Alkaline Phosphatase Lactate Dehydrogenase Total Creatine Kinase CK-MB (CK-2) Rel Index Troponin T C-Reactive Protein Total Protein Albumin Prealbumin LDL Cholesterol Direct HDL Cholesterol Arterial Blood Glucose 176 H Arterial Blood Ionized Calcium 4.5 L Urine WBC (Auto) 10.0 H 03/08/20 03/08/20 03/09/20 18:02 23:43 05:49 WBC RBC Hgb Hct MCV MCH RDW Plt Count Lymph % (Auto) [place] % (Auto) Lymph # (Auto) [place] # (Auto) Seg Neutrophils % Seg Neuts % (Manual) Lymphocytes % (Manual) Monocytes % (Manual) Basophils % (Manual) Seg Neutrophils # Seg Neutrophils # Man Lymphocytes # (Manual) Monocytes # (Manual) Eosinophils # (Manual) Basophils # (Manual) PT INR D-Dimer ABG pH POC ABG pCO2 POC ABG pO2 ABG pO2 ABG HCO3 ABG O2 Saturation ABG Base Excess ABG Hemoglobin ABG Oxyhemoglobin ABG Potassium ABG Glucose Oxyhemoglobin Carboxyhemoglobin Sodium Potassium Chloride Carbon Dioxide BUN Creatinine Glucose POC Glucose 157 H 134 H 163 H Calcium Ferritin Total Bilirubin Alkaline Phosphatase Lactate Dehydrogenase Total Creatine Kinase CK-MB (CK-2) Rel Index Troponin T C-Reactive Protein Total Protein Albumin Prealbumin LDL Cholesterol Direct HDL Cholesterol Arterial Blood Glucose Arterial Blood Ionized Calcium Urine WBC (Auto) 03/09/20 03/09/20 03/09/20 08:35 08:35 12:11 WBC 23.4 H RBC 3.36 L Hgb 9.3 L Hct 28.8 L MCV MCH RDW 15.9 H Plt Count 521 H Lymph % (Auto) [place] % (Auto) Lymph # (Auto) [place] # (Auto) Seg Neutrophils % Seg Neuts % (Manual) 87.0 H Lymphocytes % (Manual) 4.0 L Monocytes % (Manual) 9.0 H Basophils % (Manual) Seg Neutrophils # Seg Neutrophils # Man 20.4 H Lymphocytes # (Manual) 0.9 L Monocytes # (Manual) 2.1 H Eosinophils # (Manual) Basophils # (Manual) PT INR D-Dimer ABG pH POC ABG pCO2 POC ABG pO2 ABG pO2 ABG HCO3 ABG O2 Saturation ABG Base Excess ABG Hemoglobin ABG Oxyhemoglobin ABG Potassium ABG Glucose Oxyhemoglobin Carboxyhemoglobin Sodium 147 H Potassium Chloride Carbon Dioxide 37 H BUN 63 H Creatinine Glucose 154 H POC Glucose 128 H Calcium Ferritin Total Bilirubin Alkaline Phosphatase Lactate Dehydrogenase Total Creatine Kinase CK-MB (CK-2) Rel Index Troponin T C-Reactive Protein Total Protein Albumin Prealbumin LDL Cholesterol Direct HDL Cholesterol Arterial Blood Glucose Arterial Blood Ionized Calcium Urine WBC (Auto) 03/09/20 03/10/20 03/10/20 17:51 00:25 05:41 WBC RBC Hgb Hct MCV MCH RDW Plt Count Lymph % (Auto) [place] % (Auto) Lymph # (Auto) [place] # (Auto) Seg Neutrophils % Seg Neuts % (Manual) Lymphocytes % (Manual) Monocytes % (Manual) Basophils % (Manual) Seg Neutrophils # Seg Neutrophils # Man Lymphocytes # (Manual) Monocytes # (Manual) Eosinophils # (Manual) Basophils # (Manual) PT INR D-Dimer ABG pH POC ABG pCO2 POC ABG pO2 ABG pO2 ABG HCO3 ABG O2 Saturation ABG Base Excess ABG Hemoglobin ABG Oxyhemoglobin ABG Potassium ABG Glucose Oxyhemoglobin Carboxyhemoglobin Sodium Potassium Chloride Carbon Dioxide BUN Creatinine Glucose POC Glucose 127 H 128 H 153 H Calcium Ferritin Total Bilirubin Alkaline Phosphatase Lactate Dehydrogenase Total Creatine Kinase CK-MB (CK-2) Rel Index Troponin T C-Reactive Protein Total Protein Albumin Prealbumin LDL Cholesterol Direct HDL Cholesterol Arterial Blood Glucose Arterial Blood Ionized Calcium Urine WBC (Auto) 03/10/20 03/10/20 03/10/20 06:14 06:14 12:02 WBC 18.3 H RBC 3.45 L Hgb 9.5 L Hct 29.5 L MCV MCH RDW 16.1 H Plt Count 494 H Lymph % (Auto) [place] % (Auto) Lymph # (Auto) [place] # (Auto) Seg Neutrophils % Seg Neuts % (Manual) 95.0 H Lymphocytes % (Manual) 1.0 L Monocytes % (Manual) Basophils % (Manual) Seg Neutrophils # Seg Neutrophils # Man 17.4 H Lymphocytes # (Manual) 0.2 L Monocytes # (Manual) Eosinophils # (Manual) Basophils # (Manual) PT INR D-Dimer ABG pH POC ABG pCO2 POC ABG pO2 ABG pO2 ABG HCO3 ABG O2 Saturation ABG Base Excess ABG Hemoglobin ABG Oxyhemoglobin ABG Potassium ABG Glucose Oxyhemoglobin Carboxyhemoglobin Sodium 149 H Potassium Chloride Carbon Dioxide 35 H BUN 34 H Creatinine 0.2 L D Glucose 177 H POC Glucose 151 H Calcium Ferritin Total Bilirubin Alkaline Phosphatase Lactate Dehydrogenase Total Creatine Kinase CK-MB (CK-2) Rel Index Troponin T C-Reactive Protein Total Protein Albumin Prealbumin LDL Cholesterol Direct HDL Cholesterol Arterial Blood Glucose Arterial Blood Ionized Calcium Urine WBC (Auto) 03/10/20 03/10/20 03/11/20 17:41 23:53 05:02 WBC RBC Hgb Hct MCV MCH RDW Plt Count Lymph % (Auto) [place] % (Auto) Lymph # (Auto) [place] # (Auto) Seg Neutrophils % Seg Neuts % (Manual) Lymphocytes % (Manual) Monocytes % (Manual) Basophils % (Manual) Seg Neutrophils # Seg Neutrophils # Man Lymphocytes # (Manual) Monocytes # (Manual) Eosinophils # (Manual) Basophils # (Manual) PT INR D-Dimer ABG pH POC ABG pCO2 POC ABG pO2 ABG pO2 ABG HCO3 ABG O2 Saturation ABG Base Excess ABG Hemoglobin ABG Oxyhemoglobin ABG Potassium ABG Glucose Oxyhemoglobin Carboxyhemoglobin Sodium Potassium Chloride Carbon Dioxide BUN Creatinine Glucose POC Glucose 168 H 142 H 146 H Calcium Ferritin Total Bilirubin Alkaline Phosphatase Lactate Dehydrogenase Total Creatine Kinase CK-MB (CK-2) Rel Index Troponin T C-Reactive Protein Total Protein Albumin Prealbumin LDL Cholesterol Direct HDL Cholesterol Arterial Blood Glucose Arterial Blood Ionized Calcium Urine WBC (Auto) 03/11/20 03/11/20 03/11/20 11:30 14:01 14:01 WBC 19.7 H RBC 3.04 L Hgb 8.7 L Hct 25.8 L MCV MCH RDW 15.6 H Plt Count Lymph % (Auto) [place] % (Auto) Lymph # (Auto) [place] # (Auto) Seg Neutrophils % Seg Neuts % (Manual) Lymphocytes % (Manual) Monocytes % (Manual) Basophils % (Manual) Seg Neutrophils # Seg Neutrophils # Man Lymphocytes # (Manual) Monocytes # (Manual) Eosinophils # (Manual) Basophils # (Manual) PT INR D-Dimer ABG pH POC ABG pCO2 POC ABG pO2 ABG pO2 ABG HCO3 ABG O2 Saturation ABG Base Excess ABG Hemoglobin ABG Oxyhemoglobin ABG Potassium ABG Glucose Oxyhemoglobin Carboxyhemoglobin Sodium 151 H Potassium Chloride Carbon Dioxide 37 H BUN Creatinine < 0.2 L Glucose 171 H POC Glucose 248 H Calcium Ferritin Total Bilirubin Alkaline Phosphatase Lactate Dehydrogenase Total Creatine Kinase CK-MB (CK-2) Rel Index Troponin T C-Reactive Protein Total Protein Albumin Prealbumin LDL Cholesterol Direct HDL Cholesterol Arterial Blood Glucose Arterial Blood Ionized Calcium Urine WBC (Auto) 03/11/20 03/11/20 03/12/20 17:09 23:52 04:39 WBC 19.9 H RBC 3.16 L Hgb 8.9 L Hct 27.5 L MCV MCH RDW 15.7 H Plt Count Lymph % (Auto) 6.8 L [place] % (Auto) Lymph # (Auto) [place] # (Auto) 1.2 H Seg Neutrophils % 86.0 H Seg Neuts % (Manual) Lymphocytes % (Manual) Monocytes % (Manual) Basophils % (Manual) Seg Neutrophils # 17.1 H Seg Neutrophils # Man Lymphocytes # (Manual) Monocytes # (Manual) Eosinophils # (Manual) Basophils # (Manual) PT INR D-Dimer ABG pH POC ABG pCO2 POC ABG pO2 ABG pO2 ABG HCO3 ABG O2 Saturation ABG Base Excess ABG Hemoglobin ABG Oxyhemoglobin ABG Potassium ABG Glucose Oxyhemoglobin Carboxyhemoglobin Sodium Potassium Chloride Carbon Dioxide BUN Creatinine Glucose POC Glucose 124 H 131 H Calcium Ferritin Total Bilirubin Alkaline Phosphatase Lactate Dehydrogenase Total Creatine Kinase CK-MB (CK-2) Rel Index Troponin T C-Reactive Protein Total Protein Albumin Prealbumin LDL Cholesterol Direct HDL Cholesterol Arterial Blood Glucose Arterial Blood Ionized Calcium Urine WBC (Auto) 03/12/20 03/12/20 03/12/20 04:39 05:28 11:34 WBC RBC Hgb Hct MCV MCH RDW Plt Count Lymph % (Auto) [place] % (Auto) Lymph # (Auto) [place] # (Auto) Seg Neutrophils % Seg Neuts % (Manual) Lymphocytes % (Manual) Monocytes % (Manual) Basophils % (Manual) Seg Neutrophils # Seg Neutrophils # Man Lymphocytes # (Manual) Monocytes # (Manual) Eosinophils # (Manual) Basophils # (Manual) PT INR D-Dimer ABG pH POC ABG pCO2 POC ABG pO2 ABG pO2 ABG HCO3 ABG O2 Saturation ABG Base Excess ABG Hemoglobin ABG Oxyhemoglobin ABG Potassium ABG Glucose Oxyhemoglobin Carboxyhemoglobin Sodium 147 H Potassium Chloride Carbon Dioxide 40 H BUN Creatinine < 0.2 L Glucose 175 H POC Glucose 167 H 144 H Calcium Ferritin Total Bilirubin Alkaline Phosphatase Lactate Dehydrogenase Total Creatine Kinase CK-MB (CK-2) Rel Index Troponin T C-Reactive Protein Total Protein Albumin Prealbumin LDL Cholesterol Direct HDL Cholesterol Arterial Blood Glucose Arterial Blood Ionized Calcium Urine WBC (Auto) 03/12/20 03/12/20 03/13/20 17:32 23:57 05:57 WBC RBC Hgb Hct MCV MCH RDW Plt Count Lymph % (Auto) [place] % (Auto) Lymph # (Auto) [place] # (Auto) Seg Neutrophils % Seg Neuts % (Manual) Lymphocytes % (Manual) Monocytes % (Manual) Basophils % (Manual) Seg Neutrophils # Seg Neutrophils # Man Lymphocytes # (Manual) Monocytes # (Manual) Eosinophils # (Manual) Basophils # (Manual) PT INR D-Dimer ABG pH POC ABG pCO2 POC ABG pO2 ABG pO2 ABG HCO3 ABG O2 Saturation ABG Base Excess ABG Hemoglobin ABG Oxyhemoglobin ABG Potassium ABG Glucose Oxyhemoglobin Carboxyhemoglobin Sodium Potassium Chloride Carbon Dioxide BUN Creatinine Glucose POC Glucose 141 H 137 H 161 H Calcium Ferritin Total Bilirubin Alkaline Phosphatase Lactate Dehydrogenase Total Creatine Kinase CK-MB (CK-2) Rel Index Troponin T C-Reactive Protein Total Protein Albumin Prealbumin LDL Cholesterol Direct HDL Cholesterol Arterial Blood Glucose Arterial Blood Ionized Calcium Urine WBC (Auto) 03/13/20 03/13/20 03/13/20 12:28 14:14 18:39 WBC RBC Hgb Hct MCV MCH RDW Plt Count Lymph % (Auto) [place] % (Auto) Lymph # (Auto) [place] # (Auto) Seg Neutrophils % Seg Neuts % (Manual) Lymphocytes % (Manual) Monocytes % (Manual) Basophils % (Manual) Seg Neutrophils # Seg Neutrophils # Man Lymphocytes # (Manual) Monocytes # (Manual) Eosinophils # (Manual) Basophils # (Manual) PT INR D-Dimer ABG pH POC ABG pCO2 POC ABG pO2 ABG pO2 ABG HCO3 ABG O2 Saturation ABG Base Excess ABG Hemoglobin ABG Oxyhemoglobin ABG Potassium ABG Glucose Oxyhemoglobin Carboxyhemoglobin Sodium Potassium Chloride Carbon Dioxide 39 H BUN Creatinine < 0.2 L Glucose 129 H POC Glucose 130 H 125 H Calcium Ferritin Total Bilirubin Alkaline Phosphatase Lactate Dehydrogenase Total Creatine Kinase CK-MB (CK-2) Rel Index Troponin T C-Reactive Protein Total Protein Albumin Prealbumin LDL Cholesterol Direct HDL Cholesterol Arterial Blood Glucose Arterial Blood Ionized Calcium Urine WBC (Auto) 03/13/20 03/14/20 03/14/20 23:33 05:24 08:07 WBC 16.8 H RBC 2.81 L Hgb 7.9 L Hct 23.9 L MCV MCH RDW 15.9 H Plt Count Lymph % (Auto) [place] % (Auto) Lymph # (Auto) [place] # (Auto) Seg Neutrophils % Seg Neuts % (Manual) 84.0 H Lymphocytes % (Manual) 10.0 L Monocytes % (Manual) Basophils % (Manual) Seg Neutrophils # Seg Neutrophils # Man 14.1 H Lymphocytes # (Manual) Monocytes # (Manual) Eosinophils # (Manual) Basophils # (Manual) PT INR D-Dimer ABG pH POC ABG pCO2 POC ABG pO2 ABG pO2 ABG HCO3 ABG O2 Saturation ABG Base Excess ABG Hemoglobin ABG Oxyhemoglobin ABG Potassium ABG Glucose Oxyhemoglobin Carboxyhemoglobin Sodium Potassium Chloride Carbon Dioxide BUN Creatinine Glucose POC Glucose 146 H 125 H Calcium Ferritin Total Bilirubin Alkaline Phosphatase Lactate Dehydrogenase Total Creatine Kinase CK-MB (CK-2) Rel Index Troponin T C-Reactive Protein Total Protein Albumin Prealbumin LDL Cholesterol Direct HDL Cholesterol Arterial Blood Glucose Arterial Blood Ionized Calcium Urine WBC (Auto) 03/14/20 03/14/20 03/14/20 08:07 12:21 18:26 WBC RBC Hgb Hct MCV MCH RDW Plt Count Lymph % (Auto) [place] % (Auto) Lymph # (Auto) [place] # (Auto) Seg Neutrophils % Seg Neuts % (Manual) Lymphocytes % (Manual) Monocytes % (Manual) Basophils % (Manual) Seg Neutrophils # Seg Neutrophils # Man Lymphocytes # (Manual) Monocytes # (Manual) Eosinophils # (Manual) Basophils # (Manual) PT INR D-Dimer ABG pH POC ABG pCO2 POC ABG pO2 ABG pO2 ABG HCO3 ABG O2 Saturation ABG Base Excess ABG Hemoglobin ABG Oxyhemoglobin ABG Potassium ABG Glucose Oxyhemoglobin Carboxyhemoglobin Sodium Potassium Chloride 97.0 L Carbon Dioxide 37 H BUN Creatinine < 0.2 L Glucose 129 H POC Glucose 109 H 142 H Calcium 8.3 L Ferritin Total Bilirubin Alkaline Phosphatase Lactate Dehydrogenase Total Creatine Kinase CK-MB (CK-2) Rel Index Troponin T C-Reactive Protein Total Protein Albumin Prealbumin LDL Cholesterol Direct HDL Cholesterol Arterial Blood Glucose Arterial Blood Ionized Calcium Urine WBC (Auto) 03/14/20 03/15/20 03/15/20 23:57 05:46 08:06 WBC 19.7 H RBC 3.29 L Hgb 9.1 L Hct 28.0 L MCV MCH RDW 15.9 H Plt Count Lymph % (Auto) [place] % (Auto) Lymph # (Auto) [place] # (Auto) Seg Neutrophils % Seg Neuts % (Manual) Lymphocytes % (Manual) Monocytes % (Manual) Basophils % (Manual) Seg Neutrophils # Seg Neutrophils # Man Lymphocytes # (Manual) Monocytes # (Manual) Eosinophils # (Manual) Basophils # (Manual) PT INR D-Dimer ABG pH POC ABG pCO2 POC ABG pO2 ABG pO2 ABG HCO3 ABG O2 Saturation ABG Base Excess ABG Hemoglobin ABG Oxyhemoglobin ABG Potassium ABG Glucose Oxyhemoglobin Carboxyhemoglobin Sodium Potassium Chloride Carbon Dioxide BUN Creatinine Glucose POC Glucose 157 H 118 H Calcium Ferritin Total Bilirubin Alkaline Phosphatase Lactate Dehydrogenase Total Creatine Kinase CK-MB (CK-2) Rel Index Troponin T C-Reactive Protein Total Protein Albumin Prealbumin LDL Cholesterol Direct HDL Cholesterol Arterial Blood Glucose Arterial Blood Ionized Calcium Urine WBC (Auto) 03/15/20 03/15/20 03/15/20 08:06 12:44 18:09 WBC RBC Hgb Hct MCV MCH RDW Plt Count Lymph % (Auto) [place] % (Auto) Lymph # (Auto) [place] # (Auto) Seg Neutrophils % Seg Neuts % (Manual) Lymphocytes % (Manual) Monocytes % (Manual) Basophils % (Manual) Seg Neutrophils # Seg Neutrophils # Man Lymphocytes # (Manual) Monocytes # (Manual) Eosinophils # (Manual) Basophils # (Manual) PT INR D-Dimer ABG pH POC ABG pCO2 POC ABG pO2 ABG pO2 ABG HCO3 ABG O2 Saturation ABG Base Excess ABG Hemoglobin ABG Oxyhemoglobin ABG Potassium ABG Glucose Oxyhemoglobin Carboxyhemoglobin Sodium 136 L Potassium Chloride 93.6 L Carbon Dioxide 37 H BUN Creatinine < 0.2 L Glucose 132 H POC Glucose 151 H 164 H Calcium Ferritin Total Bilirubin Alkaline Phosphatase Lactate Dehydrogenase Total Creatine Kinase CK-MB (CK-2) Rel Index Troponin T C-Reactive Protein Total Protein Albumin Prealbumin LDL Cholesterol Direct HDL Cholesterol Arterial Blood Glucose Arterial Blood Ionized Calcium Urine WBC (Auto) 03/15/20 03/16/20 03/16/20 23:26 05:39 11:58 WBC RBC Hgb Hct MCV MCH RDW Plt Count Lymph % (Auto) [place] % (Auto) Lymph # (Auto) [place] # (Auto) Seg Neutrophils % Seg Neuts % (Manual) Lymphocytes % (Manual) Monocytes % (Manual) Basophils % (Manual) Seg Neutrophils # Seg Neutrophils # Man Lymphocytes # (Manual) Monocytes # (Manual) Eosinophils # (Manual) Basophils # (Manual) PT INR D-Dimer ABG pH POC ABG pCO2 POC ABG pO2 ABG pO2 ABG HCO3 ABG O2 Saturation ABG Base Excess ABG Hemoglobin ABG Oxyhemoglobin ABG Potassium ABG Glucose Oxyhemoglobin Carboxyhemoglobin Sodium Potassium Chloride Carbon Dioxide BUN Creatinine Glucose POC Glucose 136 H 116 H 109 H Calcium Ferritin Total Bilirubin Alkaline Phosphatase Lactate Dehydrogenase Total Creatine Kinase CK-MB (CK-2) Rel Index Troponin T C-Reactive Protein Total Protein Albumin Prealbumin LDL Cholesterol Direct HDL Cholesterol Arterial Blood Glucose Arterial Blood Ionized Calcium Urine WBC (Auto) 03/16/20 03/17/20 03/17/20 23:56 04:40 04:40 WBC 18.0 H RBC 3.33 L Hgb 9.5 L Hct 28.8 L MCV MCH RDW 16.4 H Plt Count 499 H Lymph % (Auto) [place] % (Auto) Lymph # (Auto) [place] # (Auto) Seg Neutrophils % Seg Neuts % (Manual) 82.0 H Lymphocytes % (Manual) 8.0 L Monocytes % (Manual) Basophils % (Manual) Seg Neutrophils # Seg Neutrophils # Man 14.8 H Lymphocytes # (Manual) Monocytes # (Manual) 1.3 H Eosinophils # (Manual) Basophils # (Manual) 0.2 H PT INR D-Dimer ABG pH POC ABG pCO2 POC ABG pO2 ABG pO2 ABG HCO3 ABG O2 Saturation ABG Base Excess ABG Hemoglobin ABG Oxyhemoglobin ABG Potassium ABG Glucose Oxyhemoglobin Carboxyhemoglobin Sodium Potassium Chloride 97.7 L Carbon Dioxide 32 H BUN Creatinine < 0.2 L Glucose 114 H POC Glucose 131 H Calcium Ferritin Total Bilirubin Alkaline Phosphatase Lactate Dehydrogenase Total Creatine Kinase CK-MB (CK-2) Rel Index Troponin T C-Reactive Protein Total Protein Albumin Prealbumin LDL Cholesterol Direct HDL Cholesterol Arterial Blood Glucose Arterial Blood Ionized Calcium Urine WBC (Auto) 03/18/20 03/18/20 03/18/20 00:21 05:21 11:55 WBC RBC Hgb Hct MCV MCH RDW Plt Count Lymph % (Auto) [place] % (Auto) Lymph # (Auto) [place] # (Auto) Seg Neutrophils % Seg Neuts % (Manual) Lymphocytes % (Manual) Monocytes % (Manual) Basophils % (Manual) Seg Neutrophils # Seg Neutrophils # Man Lymphocytes # (Manual) Monocytes # (Manual) Eosinophils # (Manual) Basophils # (Manual) PT INR D-Dimer ABG pH POC ABG pCO2 POC ABG pO2 ABG pO2 ABG HCO3 ABG O2 Saturation ABG Base Excess ABG Hemoglobin ABG Oxyhemoglobin ABG Potassium ABG Glucose Oxyhemoglobin Carboxyhemoglobin Sodium Potassium Chloride Carbon Dioxide BUN Creatinine Glucose POC Glucose 124 H 138 H 119 H Calcium Ferritin Total Bilirubin Alkaline Phosphatase Lactate Dehydrogenase Total Creatine Kinase CK-MB (CK-2) Rel Index Troponin T C-Reactive Protein Total Protein Albumin Prealbumin LDL Cholesterol Direct HDL Cholesterol Arterial Blood Glucose Arterial Blood Ionized Calcium Urine WBC (Auto) 03/18/20 03/18/20 03/19/20 17:03 23:58 05:24 WBC RBC Hgb Hct MCV MCH RDW Plt Count Lymph % (Auto) [place] % (Auto) Lymph # (Auto) [place] # (Auto) Seg Neutrophils % Seg Neuts % (Manual) Lymphocytes % (Manual) Monocytes % (Manual) Basophils % (Manual) Seg Neutrophils # Seg Neutrophils # Man Lymphocytes # (Manual) Monocytes # (Manual) Eosinophils # (Manual) Basophils # (Manual) PT INR D-Dimer ABG pH POC ABG pCO2 POC ABG pO2 ABG pO2 ABG HCO3 ABG O2 Saturation ABG Base Excess ABG Hemoglobin ABG Oxyhemoglobin ABG Potassium ABG Glucose Oxyhemoglobin Carboxyhemoglobin Sodium Potassium Chloride Carbon Dioxide BUN Creatinine Glucose POC Glucose 128 H 128 H 115 H Calcium Ferritin Total Bilirubin Alkaline Phosphatase Lactate Dehydrogenase Total Creatine Kinase CK-MB (CK-2) Rel Index Troponin T C-Reactive Protein Total Protein Albumin Prealbumin LDL Cholesterol Direct HDL Cholesterol Arterial Blood Glucose Arterial Blood Ionized Calcium Urine WBC (Auto) 03/19/20 03/19/20 03/19/20 08:05 08:05 11:56 WBC 16.8 H RBC 3.36 L Hgb 9.4 L Hct 28.8 L MCV MCH RDW 17.4 H Plt Count 567 H Lymph % (Auto) 7.8 L Oliver % (Auto) Lymph # (Auto) Oliver # (Auto) 1.2 H Seg Neutrophils % 83.5 H Seg Neuts % (Manual) Lymphocytes % (Manual) Monocytes % (Manual) Basophils % (Manual) Seg Neutrophils # 14.1 H Seg Neutrophils # Man Lymphocytes # (Manual) Monocytes # (Manual) Eosinophils # (Manual) Basophils # (Manual) PT INR D-Dimer ABG pH POC ABG pCO2 POC ABG pO2 ABG pO2 ABG HCO3 ABG O2 Saturation ABG Base Excess ABG Hemoglobin ABG Oxyhemoglobin ABG Potassium ABG Glucose Oxyhemoglobin Carboxyhemoglobin Sodium Potassium Chloride Carbon Dioxide 36 H BUN Creatinine < 0.2 L Glucose 135 H POC Glucose 128 H Calcium Ferritin Total Bilirubin Alkaline Phosphatase Lactate Dehydrogenase Total Creatine Kinase CK-MB (CK-2) Rel Index Troponin T C-Reactive Protein Total Protein Albumin Prealbumin LDL Cholesterol Direct HDL Cholesterol Arterial Blood Glucose Arterial Blood Ionized Calcium Urine WBC (Auto) 03/19/20 03/20/20 03/20/20 23:59 05:12 16:52 WBC RBC Hgb Hct MCV MCH RDW Plt Count Lymph % (Auto) Oliver % (Auto) Lymph # (Auto) Oliver # (Auto) Seg Neutrophils % Seg Neuts % (Manual) Lymphocytes % (Manual) Monocytes % (Manual) Basophils % (Manual) Seg Neutrophils # Seg Neutrophils # Man Lymphocytes # (Manual) Monocytes # (Manual) Eosinophils # (Manual) Basophils # (Manual) PT INR D-Dimer ABG pH POC ABG pCO2 POC ABG pO2 ABG pO2 ABG HCO3 ABG O2 Saturation ABG Base Excess ABG Hemoglobin ABG Oxyhemoglobin ABG Potassium ABG Glucose Oxyhemoglobin Carboxyhemoglobin Sodium Potassium Chloride Carbon Dioxide BUN Creatinine Glucose POC Glucose 120 H 131 H 124 H Calcium Ferritin Total Bilirubin Alkaline Phosphatase Lactate Dehydrogenase Total Creatine Kinase CK-MB (CK-2) Rel Index Troponin T C-Reactive Protein Total Protein Albumin Prealbumin LDL Cholesterol Direct HDL Cholesterol Arterial Blood Glucose Arterial Blood Ionized Calcium Urine WBC (Auto) 03/20/20 03/21/20 03/21/20 23:35 04:50 07:35 WBC 15.2 H RBC 3.39 L Hgb 9.4 L Hct 29.4 L MCV MCH RDW 17.6 H Plt Count 518 H Lymph % (Auto) Oliver % (Auto) Lymph # (Auto) Oliver # (Auto) Seg Neutrophils % Seg Neuts % (Manual) 83.0 H Lymphocytes % (Manual) 10.0 L Monocytes % (Manual) Basophils % (Manual) 2.0 H Seg Neutrophils # Seg Neutrophils # Man 12.6 H Lymphocytes # (Manual) Monocytes # (Manual) Eosinophils # (Manual) Basophils # (Manual) 0.3 H PT INR D-Dimer ABG pH POC ABG pCO2 POC ABG pO2 ABG pO2 ABG HCO3 ABG O2 Saturation ABG Base Excess ABG Hemoglobin ABG Oxyhemoglobin ABG Potassium ABG Glucose Oxyhemoglobin Carboxyhemoglobin Sodium Potassium Chloride Carbon Dioxide BUN Creatinine Glucose POC Glucose 125 H 127 H Calcium Ferritin Total Bilirubin Alkaline Phosphatase Lactate Dehydrogenase Total Creatine Kinase CK-MB (CK-2) Rel Index Troponin T C-Reactive Protein Total Protein Albumin Prealbumin LDL Cholesterol Direct HDL Cholesterol Arterial Blood Glucose Arterial Blood Ionized Calcium Urine WBC (Auto) 03/21/20 03/21/20 03/21/20 07:35 11:45 17:22 WBC RBC Hgb Hct MCV MCH RDW Plt Count Lymph % (Auto) [place] % (Auto) Lymph # (Auto) Oliver # (Auto) Seg Neutrophils % Seg Neuts % (Manual) Lymphocytes % (Manual) Monocytes % (Manual) Basophils % (Manual) Seg Neutrophils # Seg Neutrophils # Man Lymphocytes # (Manual) Monocytes # (Manual) Eosinophils # (Manual) Basophils # (Manual) PT INR D-Dimer ABG pH POC ABG pCO2 POC ABG pO2 ABG pO2 ABG HCO3 ABG O2 Saturation ABG Base Excess ABG Hemoglobin ABG Oxyhemoglobin ABG Potassium ABG Glucose Oxyhemoglobin Carboxyhemoglobin Sodium 136 L Potassium Chloride 97.7 L Carbon Dioxide 32 H BUN Creatinine < 0.2 L Glucose 103 H POC Glucose 126 H 120 H Calcium Ferritin Total Bilirubin Alkaline Phosphatase Lactate Dehydrogenase Total Creatine Kinase CK-MB (CK-2) Rel Index Troponin T C-Reactive Protein Total Protein Albumin Prealbumin LDL Cholesterol Direct HDL Cholesterol Arterial Blood Glucose Arterial Blood Ionized Calcium Urine WBC (Auto) 03/22/20 03/22/20 03/22/20 05:09 06:34 06:34 WBC 17.5 H RBC 3.52 L Hgb 10.0 L Hct 30.7 L MCV MCH RDW 17.5 H Plt Count 499 H Lymph % (Auto) [place] % (Auto) Lymph # (Auto) Oliver # (Auto) Seg Neutrophils % Seg Neuts % (Manual) 80.0 H Lymphocytes % (Manual) 10.0 L Monocytes % (Manual) Basophils % (Manual) Seg Neutrophils # Seg Neutrophils # Man 14.0 H Lymphocytes # (Manual) Monocytes # (Manual) Eosinophils # (Manual) Basophils # (Manual) PT INR D-Dimer ABG pH POC ABG pCO2 POC ABG pO2 ABG pO2 ABG HCO3 ABG O2 Saturation ABG Base Excess ABG Hemoglobin ABG Oxyhemoglobin ABG Potassium ABG Glucose Oxyhemoglobin Carboxyhemoglobin Sodium Potassium Chloride 96.6 L Carbon Dioxide 38 H BUN Creatinine < 0.2 L Glucose 139 H POC Glucose 125 H Calcium Ferritin Total Bilirubin Alkaline Phosphatase Lactate Dehydrogenase Total Creatine Kinase CK-MB (CK-2) Rel Index Troponin T C-Reactive Protein Total Protein Albumin Prealbumin LDL Cholesterol Direct HDL Cholesterol Arterial Blood Glucose Arterial Blood Ionized Calcium Urine WBC (Auto) 03/22/20 03/22/20 03/22/20 11:45 18:00 23:32 WBC RBC Hgb Hct MCV MCH RDW Plt Count Lymph % (Auto) [place] % (Auto) Lymph # (Auto) Oliver # (Auto) Seg Neutrophils % Seg Neuts % (Manual) Lymphocytes % (Manual) Monocytes % (Manual) Basophils % (Manual) Seg Neutrophils # Seg Neutrophils # Man Lymphocytes # (Manual) Monocytes # (Manual) Eosinophils # (Manual) Basophils # (Manual) PT INR D-Dimer ABG pH POC ABG pCO2 POC ABG pO2 ABG pO2 ABG HCO3 ABG O2 Saturation ABG Base Excess ABG Hemoglobin ABG Oxyhemoglobin ABG Potassium ABG Glucose Oxyhemoglobin Carboxyhemoglobin Sodium Potassium Chloride Carbon Dioxide BUN Creatinine Glucose POC Glucose 135 H 133 H Calcium Ferritin Total Bilirubin Alkaline Phosphatase Lactate Dehydrogenase Total Creatine Kinase CK-MB (CK-2) Rel Index Troponin T 0.113 H* C-Reactive Protein Total Protein Albumin Prealbumin LDL Cholesterol Direct HDL Cholesterol Arterial Blood Glucose Arterial Blood Ionized Calcium Urine WBC (Auto) 03/23/20 03/23/20 03/23/20 01:47 06:21 07:57 WBC RBC Hgb Hct MCV MCH RDW Plt Count Lymph % (Auto) [place] % (Auto) Lymph # (Auto) [place] # (Auto) Seg Neutrophils % Seg Neuts % (Manual) Lymphocytes % (Manual) Monocytes % (Manual) Basophils % (Manual) Seg Neutrophils # Seg Neutrophils # Man Lymphocytes # (Manual) Monocytes # (Manual) Eosinophils # (Manual) Basophils # (Manual) PT INR D-Dimer ABG pH POC ABG pCO2 POC ABG pO2 ABG pO2 ABG HCO3 ABG O2 Saturation ABG Base Excess ABG Hemoglobin ABG Oxyhemoglobin ABG Potassium ABG Glucose Oxyhemoglobin Carboxyhemoglobin Sodium Potassium Chloride Carbon Dioxide BUN Creatinine Glucose POC Glucose 130 H Calcium Ferritin Total Bilirubin Alkaline Phosphatase Lactate Dehydrogenase Total Creatine Kinase CK-MB (CK-2) Rel Index Troponin T 0.143 H* D 0.105 H* D C-Reactive Protein Total Protein Albumin Prealbumin LDL Cholesterol Direct HDL Cholesterol Arterial Blood Glucose Arterial Blood Ionized Calcium Urine WBC (Auto) 03/23/20 03/24/20 03/24/20 12:02 05:33 07:15 WBC 18.0 H RBC Hgb 11.0 L Hct 34.0 L MCV MCH RDW 17.4 H Plt Count 520 H Lymph % (Auto) [place] % (Auto) Lymph # (Auto) Oliver # (Auto) Seg Neutrophils % Seg Neuts % (Manual) 88.0 H Lymphocytes % (Manual) 7.0 L Monocytes % (Manual) Basophils % (Manual) Seg Neutrophils # Seg Neutrophils # Man 15.8 H Lymphocytes # (Manual) Monocytes # (Manual) Eosinophils # (Manual) Basophils # (Manual) PT INR D-Dimer ABG pH POC ABG pCO2 POC ABG pO2 ABG pO2 ABG HCO3 ABG O2 Saturation ABG Base Excess ABG Hemoglobin ABG Oxyhemoglobin ABG Potassium ABG Glucose Oxyhemoglobin Carboxyhemoglobin Sodium Potassium Chloride Carbon Dioxide BUN Creatinine Glucose POC Glucose 137 H 112 H Calcium Ferritin Total Bilirubin Alkaline Phosphatase Lactate Dehydrogenase Total Creatine Kinase CK-MB (CK-2) Rel Index Troponin T C-Reactive Protein Total Protein Albumin Prealbumin LDL Cholesterol Direct HDL Cholesterol Arterial Blood Glucose Arterial Blood Ionized Calcium Urine WBC (Auto) 03/24/20 03/24/20 03/24/20 07:15 11:22 23:30 WBC RBC Hgb Hct MCV MCH RDW Plt Count Lymph % (Auto) [place] % (Auto) Lymph # (Auto) Oliver # (Auto) Seg Neutrophils % Seg Neuts % (Manual) Lymphocytes % (Manual) Monocytes % (Manual) Basophils % (Manual) Seg Neutrophils # Seg Neutrophils # Man Lymphocytes # (Manual) Monocytes # (Manual) Eosinophils # (Manual) Basophils # (Manual) PT INR D-Dimer ABG pH POC ABG pCO2 POC ABG pO2 ABG pO2 ABG HCO3 ABG O2 Saturation ABG Base Excess ABG Hemoglobin ABG Oxyhemoglobin ABG Potassium ABG Glucose Oxyhemoglobin Carboxyhemoglobin Sodium Potassium Chloride 96.6 L Carbon Dioxide 38 H BUN Creatinine < 0.2 L Glucose 141 H POC Glucose 130 H 120 H Calcium Ferritin Total Bilirubin Alkaline Phosphatase Lactate Dehydrogenase Total Creatine Kinase CK-MB (CK-2) Rel Index Troponin T C-Reactive Protein Total Protein Albumin Prealbumin LDL Cholesterol Direct HDL Cholesterol Arterial Blood Glucose Arterial Blood Ionized Calcium Urine WBC (Auto) 03/25/20 03/25/20 03/25/20 05:48 17:53 23:18 WBC RBC Hgb Hct MCV MCH RDW Plt Count Lymph % (Auto) [place] % (Auto) Lymph # (Auto) [place] # (Auto) Seg Neutrophils % Seg Neuts % (Manual) Lymphocytes % (Manual) Monocytes % (Manual) Basophils % (Manual) Seg Neutrophils # Seg Neutrophils # Man Lymphocytes # (Manual) Monocytes # (Manual) Eosinophils # (Manual) Basophils # (Manual) PT INR D-Dimer ABG pH POC ABG pCO2 POC ABG pO2 ABG pO2 ABG HCO3 ABG O2 Saturation ABG Base Excess ABG Hemoglobin ABG Oxyhemoglobin ABG Potassium ABG Glucose Oxyhemoglobin Carboxyhemoglobin Sodium Potassium Chloride Carbon Dioxide BUN Creatinine Glucose POC Glucose 124 H 109 H 131 H Calcium Ferritin Total Bilirubin Alkaline Phosphatase Lactate Dehydrogenase Total Creatine Kinase CK-MB (CK-2) Rel Index Troponin T C-Reactive Protein Total Protein Albumin Prealbumin LDL Cholesterol Direct HDL Cholesterol Arterial Blood Glucose Arterial Blood Ionized Calcium Urine WBC (Auto) 03/26/20 03/26/20 03/26/20 05:21 08:49 08:49 WBC 19.7 H RBC Hgb 10.7 L Hct 33.5 L MCV MCH 27 L RDW 17.1 H Plt Count 480 H Lymph % (Auto) 5.7 L Oliver % (Auto) Lymph # (Auto) 1.1 L Oliver # (Auto) 1.2 H Seg Neutrophils % 87.7 H Seg Neuts % (Manual) Lymphocytes % (Manual) Monocytes % (Manual) Basophils % (Manual) Seg Neutrophils # 17.2 H Seg Neutrophils # Man Lymphocytes # (Manual) Monocytes # (Manual) Eosinophils # (Manual) Basophils # (Manual) PT INR D-Dimer ABG pH POC ABG pCO2 POC ABG pO2 ABG pO2 ABG HCO3 ABG O2 Saturation ABG Base Excess ABG Hemoglobin ABG Oxyhemoglobin ABG Potassium ABG Glucose Oxyhemoglobin Carboxyhemoglobin Sodium Potassium Chloride 97.2 L Carbon Dioxide 36 H BUN Creatinine < 0.2 L Glucose 127 H POC Glucose 116 H Calcium Ferritin Total Bilirubin Alkaline Phosphatase Lactate Dehydrogenase Total Creatine Kinase CK-MB (CK-2) Rel Index Troponin T C-Reactive Protein Total Protein Albumin Prealbumin LDL Cholesterol Direct HDL Cholesterol Arterial Blood Glucose Arterial Blood Ionized Calcium Urine WBC (Auto) 03/26/20 03/26/20 03/26/20 11:38 18:44 23:06 WBC RBC Hgb Hct MCV MCH RDW Plt Count Lymph % (Auto) Oliver % (Auto) Lymph # (Auto) Oliver # (Auto) Seg Neutrophils % Seg Neuts % (Manual) Lymphocytes % (Manual) Monocytes % (Manual) Basophils % (Manual) Seg Neutrophils # Seg Neutrophils # Man Lymphocytes # (Manual) Monocytes # (Manual) Eosinophils # (Manual) Basophils # (Manual) PT INR D-Dimer ABG pH POC ABG pCO2 POC ABG pO2 ABG pO2 ABG HCO3 ABG O2 Saturation ABG Base Excess ABG Hemoglobin ABG Oxyhemoglobin ABG Potassium ABG Glucose Oxyhemoglobin Carboxyhemoglobin Sodium Potassium Chloride Carbon Dioxide BUN Creatinine Glucose POC Glucose 120 H 111 H 134 H Calcium Ferritin Total Bilirubin Alkaline Phosphatase Lactate Dehydrogenase Total Creatine Kinase CK-MB (CK-2) Rel Index Troponin T C-Reactive Protein Total Protein Albumin Prealbumin LDL Cholesterol Direct HDL Cholesterol Arterial Blood Glucose Arterial Blood Ionized Calcium Urine WBC (Auto) 03/27/20 03/27/20 03/27/20 05:41 05:59 05:59 WBC 18.6 H RBC Hgb 10.1 L Hct 31.4 L MCV MCH RDW 17.2 H Plt Count Lymph % (Auto) 8.0 L Oliver % (Auto) Lymph # (Auto) Oliver # (Auto) 1.2 H Seg Neutrophils % 84.7 H Seg Neuts % (Manual) Lymphocytes % (Manual) Monocytes % (Manual) Basophils % (Manual) Seg Neutrophils # 15.8 H Seg Neutrophils # Man Lymphocytes # (Manual) Monocytes # (Manual) Eosinophils # (Manual) Basophils # (Manual) PT INR D-Dimer ABG pH POC ABG pCO2 POC ABG pO2 ABG pO2 ABG HCO3 ABG O2 Saturation ABG Base Excess ABG Hemoglobin ABG Oxyhemoglobin ABG Potassium ABG Glucose Oxyhemoglobin Carboxyhemoglobin Sodium Potassium Chloride Carbon Dioxide 34 H BUN Creatinine < 0.2 L Glucose 127 H POC Glucose 129 H Calcium Ferritin Total Bilirubin Alkaline Phosphatase Lactate Dehydrogenase Total Creatine Kinase CK-MB (CK-2) Rel Index Troponin T C-Reactive Protein Total Protein Albumin Prealbumin LDL Cholesterol Direct HDL Cholesterol Arterial Blood Glucose Arterial Blood Ionized Calcium Urine WBC (Auto) 03/27/20 03/27/20 03/28/20 17:28 23:22 05:23 WBC RBC Hgb Hct MCV MCH RDW Plt Count Lymph % (Auto) [place] % (Auto) Lymph # (Auto) Oliver # (Auto) Seg Neutrophils % Seg Neuts % (Manual) Lymphocytes % (Manual) Monocytes % (Manual) Basophils % (Manual) Seg Neutrophils # Seg Neutrophils # Man Lymphocytes # (Manual) Monocytes # (Manual) Eosinophils # (Manual) Basophils # (Manual) PT INR D-Dimer ABG pH POC ABG pCO2 POC ABG pO2 ABG pO2 ABG HCO3 ABG O2 Saturation ABG Base Excess ABG Hemoglobin ABG Oxyhemoglobin ABG Potassium ABG Glucose Oxyhemoglobin Carboxyhemoglobin Sodium Potassium Chloride Carbon Dioxide BUN Creatinine Glucose POC Glucose 108 H 119 H 129 H Calcium Ferritin Total Bilirubin Alkaline Phosphatase Lactate Dehydrogenase Total Creatine Kinase CK-MB (CK-2) Rel Index Troponin T C-Reactive Protein Total Protein Albumin Prealbumin LDL Cholesterol Direct HDL Cholesterol Arterial Blood Glucose Arterial Blood Ionized Calcium Urine WBC (Auto) 03/28/20 03/28/20 03/28/20 10:28 10:28 11:36 WBC 23.6 H RBC 3.62 L Hgb 10.0 L Hct 30.8 L MCV MCH RDW 16.4 H Plt Count Lymph % (Auto) [place] % (Auto) Lymph # (Auto) Oliver # (Auto) Seg Neutrophils % Seg Neuts % (Manual) 89.0 H Lymphocytes % (Manual) 5.0 L Monocytes % (Manual) Basophils % (Manual) Seg Neutrophils # Seg Neutrophils # Man 21.0 H Lymphocytes # (Manual) Monocytes # (Manual) 1.2 H Eosinophils # (Manual) Basophils # (Manual) 0.2 H PT INR D-Dimer ABG pH POC ABG pCO2 POC ABG pO2 ABG pO2 ABG HCO3 ABG O2 Saturation ABG Base Excess ABG Hemoglobin ABG Oxyhemoglobin ABG Potassium ABG Glucose Oxyhemoglobin Carboxyhemoglobin Sodium 134 L Potassium Chloride 94.2 L Carbon Dioxide 35 H BUN Creatinine < 0.2 L Glucose 134 H POC Glucose Calcium Ferritin Total Bilirubin Alkaline Phosphatase Lactate Dehydrogenase Total Creatine Kinase CK-MB (CK-2) Rel Index Troponin T C-Reactive Protein Total Protein Albumin Prealbumin LDL Cholesterol Direct HDL Cholesterol Arterial Blood Glucose Arterial Blood Ionized Calcium Urine WBC (Auto) 39.0 H 03/28/20 03/28/20 03/28/20 11:51 17:08 17:17 WBC RBC Hgb Hct MCV MCH RDW Plt Count Lymph % (Auto) [place] % (Auto) Lymph # (Auto) Oliver # (Auto) Seg Neutrophils % Seg Neuts % (Manual) Lymphocytes % (Manual) Monocytes % (Manual) Basophils % (Manual) Seg Neutrophils # Seg Neutrophils # Man Lymphocytes # (Manual) Monocytes # (Manual) Eosinophils # (Manual) Basophils # (Manual) PT INR D-Dimer ABG pH POC ABG pCO2 POC ABG pO2 ABG pO2 ABG HCO3 ABG O2 Saturation ABG Base Excess ABG Hemoglobin ABG Oxyhemoglobin ABG Potassium ABG Glucose Oxyhemoglobin Carboxyhemoglobin Sodium Potassium Chloride Carbon Dioxide BUN Creatinine Glucose POC Glucose 123 H 112 H Calcium Ferritin Total Bilirubin Alkaline Phosphatase Lactate Dehydrogenase Total Creatine Kinase 47 L CK-MB (CK-2) Rel Index 4.6 H Troponin T 0.090 H C-Reactive Protein Total Protein Albumin Prealbumin LDL Cholesterol Direct HDL Cholesterol Arterial Blood Glucose Arterial Blood Ionized Calcium Urine WBC (Auto) 03/28/20 03/29/20 03/29/20 23:22 05:22 10:58 WBC RBC Hgb Hct MCV MCH RDW Plt Count Lymph % (Auto) [place] % (Auto) Lymph # (Auto) [place] # (Auto) Seg Neutrophils % Seg Neuts % (Manual) Lymphocytes % (Manual) Monocytes % (Manual) Basophils % (Manual) Seg Neutrophils # Seg Neutrophils # Man Lymphocytes # (Manual) Monocytes # (Manual) Eosinophils # (Manual) Basophils # (Manual) PT INR D-Dimer ABG pH POC ABG pCO2 POC ABG pO2 ABG pO2 ABG HCO3 ABG O2 Saturation ABG Base Excess ABG Hemoglobin ABG Oxyhemoglobin ABG Potassium ABG Glucose Oxyhemoglobin Carboxyhemoglobin Sodium Potassium Chloride Carbon Dioxide BUN Creatinine Glucose POC Glucose 122 H 116 H 133 H Calcium Ferritin Total Bilirubin Alkaline Phosphatase Lactate Dehydrogenase Total Creatine Kinase CK-MB (CK-2) Rel Index Troponin T C-Reactive Protein Total Protein Albumin Prealbumin LDL Cholesterol Direct HDL Cholesterol Arterial Blood Glucose Arterial Blood Ionized Calcium Urine WBC (Auto) 03/29/20 03/29/20 03/30/20 17:18 23:14 04:57 WBC RBC Hgb Hct MCV MCH RDW Plt Count Lymph % (Auto) [place] % (Auto) Lymph # (Auto) [place] # (Auto) Seg Neutrophils % Seg Neuts % (Manual) Lymphocytes % (Manual) Monocytes % (Manual) Basophils % (Manual) Seg Neutrophils # Seg Neutrophils # Man Lymphocytes # (Manual) Monocytes # (Manual) Eosinophils # (Manual) Basophils # (Manual) PT INR D-Dimer ABG pH POC ABG pCO2 POC ABG pO2 ABG pO2 ABG HCO3 ABG O2 Saturation ABG Base Excess ABG Hemoglobin ABG Oxyhemoglobin ABG Potassium ABG Glucose Oxyhemoglobin Carboxyhemoglobin Sodium Potassium Chloride Carbon Dioxide BUN Creatinine Glucose POC Glucose 111 H 114 H 130 H Calcium Ferritin Total Bilirubin Alkaline Phosphatase Lactate Dehydrogenase Total Creatine Kinase CK-MB (CK-2) Rel Index Troponin T C-Reactive Protein Total Protein Albumin Prealbumin LDL Cholesterol Direct HDL Cholesterol Arterial Blood Glucose Arterial Blood Ionized Calcium Urine WBC (Auto) 03/30/20 03/30/20 03/30/20 11:38 14:47 14:47 WBC 19.9 H RBC Hgb 10.9 L Hct 34.4 L MCV MCH 27 L RDW 16.5 H Plt Count 441 H Lymph % (Auto) 6.4 L Oliver % (Auto) Lymph # (Auto) Oliver # (Auto) 1.4 H Seg Neutrophils % 86.1 H Seg Neuts % (Manual) Lymphocytes % (Manual) Monocytes % (Manual) Basophils % (Manual) Seg Neutrophils # 17.1 H Seg Neutrophils # Man Lymphocytes # (Manual) Monocytes # (Manual) Eosinophils # (Manual) Basophils # (Manual) PT INR D-Dimer ABG pH POC ABG pCO2 POC ABG pO2 ABG pO2 ABG HCO3 ABG O2 Saturation ABG Base Excess ABG Hemoglobin ABG Oxyhemoglobin ABG Potassium ABG Glucose Oxyhemoglobin Carboxyhemoglobin Sodium 133 L Potassium Chloride 94.6 L Carbon Dioxide 33 H BUN Creatinine < 0.2 L Glucose 194 H POC Glucose 139 H Calcium Ferritin Total Bilirubin Alkaline Phosphatase Lactate Dehydrogenase Total Creatine Kinase CK-MB (CK-2) Rel Index Troponin T C-Reactive Protein Total Protein Albumin 2.8 L Prealbumin LDL Cholesterol Direct HDL Cholesterol Arterial Blood Glucose Arterial Blood Ionized Calcium Urine WBC (Auto) 03/30/20 03/31/20 03/31/20 17:07 05:02 15:21 WBC RBC Hgb Hct MCV MCH RDW Plt Count Lymph % (Auto) [place] % (Auto) Lymph # (Auto) [place] # (Auto) Seg Neutrophils % Seg Neuts % (Manual) Lymphocytes % (Manual) Monocytes % (Manual) Basophils % (Manual) Seg Neutrophils # Seg Neutrophils # Man Lymphocytes # (Manual) Monocytes # (Manual) Eosinophils # (Manual) Basophils # (Manual) PT INR D-Dimer ABG pH POC ABG pCO2 POC ABG pO2 ABG pO2 ABG HCO3 ABG O2 Saturation ABG Base Excess ABG Hemoglobin ABG Oxyhemoglobin ABG Potassium ABG Glucose Oxyhemoglobin Carboxyhemoglobin Sodium Potassium Chloride Carbon Dioxide BUN Creatinine Glucose POC Glucose 163 H 108 H 110 H Calcium Ferritin Total Bilirubin Alkaline Phosphatase Lactate Dehydrogenase Total Creatine Kinase CK-MB (CK-2) Rel Index Troponin T C-Reactive Protein Total Protein Albumin Prealbumin LDL Cholesterol Direct HDL Cholesterol Arterial Blood Glucose Arterial Blood Ionized Calcium Urine WBC (Auto) 03/31/20 03/31/20 04/01/20 17:58 23:19 05:09 WBC RBC Hgb Hct MCV MCH RDW Plt Count Lymph % (Auto) [place] % (Auto) Lymph # (Auto) [place] # (Auto) Seg Neutrophils % Seg Neuts % (Manual) Lymphocytes % (Manual) Monocytes % (Manual) Basophils % (Manual) Seg Neutrophils # Seg Neutrophils # Man Lymphocytes # (Manual) Monocytes # (Manual) Eosinophils # (Manual) Basophils # (Manual) PT INR D-Dimer ABG pH POC ABG pCO2 POC ABG pO2 ABG pO2 ABG HCO3 ABG O2 Saturation ABG Base Excess ABG Hemoglobin ABG Oxyhemoglobin ABG Potassium ABG Glucose Oxyhemoglobin Carboxyhemoglobin Sodium Potassium Chloride Carbon Dioxide BUN Creatinine Glucose POC Glucose 110 H 131 H 124 H Calcium Ferritin Total Bilirubin Alkaline Phosphatase Lactate Dehydrogenase Total Creatine Kinase CK-MB (CK-2) Rel Index Troponin T C-Reactive Protein Total Protein Albumin Prealbumin LDL Cholesterol Direct HDL Cholesterol Arterial Blood Glucose Arterial Blood Ionized Calcium Urine WBC (Auto) 04/01/20 04/01/20 04/01/20 11:50 17:01 23:21 WBC RBC Hgb Hct MCV MCH RDW Plt Count Lymph % (Auto) [place] % (Auto) Lymph # (Auto) [place] # (Auto) Seg Neutrophils % Seg Neuts % (Manual) Lymphocytes % (Manual) Monocytes % (Manual) Basophils % (Manual) Seg Neutrophils # Seg Neutrophils # Man Lymphocytes # (Manual) Monocytes # (Manual) Eosinophils # (Manual) Basophils # (Manual) PT INR D-Dimer ABG pH POC ABG pCO2 POC ABG pO2 ABG pO2 ABG HCO3 ABG O2 Saturation ABG Base Excess ABG Hemoglobin ABG Oxyhemoglobin ABG Potassium ABG Glucose Oxyhemoglobin Carboxyhemoglobin Sodium Potassium Chloride Carbon Dioxide BUN Creatinine Glucose POC Glucose 136 H 115 H 124 H Calcium Ferritin Total Bilirubin Alkaline Phosphatase Lactate Dehydrogenase Total Creatine Kinase CK-MB (CK-2) Rel Index Troponin T C-Reactive Protein Total Protein Albumin Prealbumin LDL Cholesterol Direct HDL Cholesterol Arterial Blood Glucose Arterial Blood Ionized Calcium Urine WBC (Auto) 04/02/20 04/02/20 04/02/20 05:27 11:58 17:58 WBC RBC Hgb Hct MCV MCH RDW Plt Count Lymph % (Auto) [place] % (Auto) Lymph # (Auto) [place] # (Auto) Seg Neutrophils % Seg Neuts % (Manual) Lymphocytes % (Manual) Monocytes % (Manual) Basophils % (Manual) Seg Neutrophils # Seg Neutrophils # Man Lymphocytes # (Manual) Monocytes # (Manual) Eosinophils # (Manual) Basophils # (Manual) PT INR D-Dimer ABG pH POC ABG pCO2 POC ABG pO2 ABG pO2 ABG HCO3 ABG O2 Saturation ABG Base Excess ABG Hemoglobin ABG Oxyhemoglobin ABG Potassium ABG Glucose Oxyhemoglobin Carboxyhemoglobin Sodium Potassium Chloride Carbon Dioxide BUN Creatinine Glucose POC Glucose 117 H 133 H 122 H Calcium Ferritin Total Bilirubin Alkaline Phosphatase Lactate Dehydrogenase Total Creatine Kinase CK-MB (CK-2) Rel Index Troponin T C-Reactive Protein Total Protein Albumin Prealbumin LDL Cholesterol Direct HDL Cholesterol Arterial Blood Glucose Arterial Blood Ionized Calcium Urine WBC (Auto) 04/02/20 04/03/20 04/03/20 23:12 05:11 11:11 WBC RBC Hgb Hct MCV MCH RDW Plt Count Lymph % (Auto) [place] % (Auto) Lymph # (Auto) [place] # (Auto) Seg Neutrophils % Seg Neuts % (Manual) Lymphocytes % (Manual) Monocytes % (Manual) Basophils % (Manual) Seg Neutrophils # Seg Neutrophils # Man Lymphocytes # (Manual) Monocytes # (Manual) Eosinophils # (Manual) Basophils # (Manual) PT INR D-Dimer ABG pH POC ABG pCO2 POC ABG pO2 ABG pO2 ABG HCO3 ABG O2 Saturation ABG Base Excess ABG Hemoglobin ABG Oxyhemoglobin ABG Potassium ABG Glucose Oxyhemoglobin Carboxyhemoglobin Sodium Potassium Chloride Carbon Dioxide BUN Creatinine Glucose POC Glucose 130 H 139 H 136 H Calcium Ferritin Total Bilirubin Alkaline Phosphatase Lactate Dehydrogenase Total Creatine Kinase CK-MB (CK-2) Rel Index Troponin T C-Reactive Protein Total Protein Albumin Prealbumin LDL Cholesterol Direct HDL Cholesterol Arterial Blood Glucose Arterial Blood Ionized Calcium Urine WBC (Auto) 04/03/20 04/03/20 04/04/20 16:51 23:25 05:29 WBC RBC Hgb Hct MCV MCH RDW Plt Count Lymph % (Auto) [place] % (Auto) Lymph # (Auto) [place] # (Auto) Seg Neutrophils % Seg Neuts % (Manual) Lymphocytes % (Manual) Monocytes % (Manual) Basophils % (Manual) Seg Neutrophils # Seg Neutrophils # Man Lymphocytes # (Manual) Monocytes # (Manual) Eosinophils # (Manual) Basophils # (Manual) PT INR D-Dimer ABG pH POC ABG pCO2 POC ABG pO2 ABG pO2 ABG HCO3 ABG O2 Saturation ABG Base Excess ABG Hemoglobin ABG Oxyhemoglobin ABG Potassium ABG Glucose Oxyhemoglobin Carboxyhemoglobin Sodium Potassium Chloride Carbon Dioxide BUN Creatinine Glucose POC Glucose 118 H 111 H 126 H Calcium Ferritin Total Bilirubin Alkaline Phosphatase Lactate Dehydrogenase Total Creatine Kinase CK-MB (CK-2) Rel Index Troponin T C-Reactive Protein Total Protein Albumin Prealbumin LDL Cholesterol Direct HDL Cholesterol Arterial Blood Glucose Arterial Blood Ionized Calcium Urine WBC (Auto) 04/04/20 04/04/20 04/04/20 11:47 17:41 23:05 WBC RBC Hgb Hct MCV MCH RDW Plt Count Lymph % (Auto) [place] % (Auto) Lymph # (Auto) [place] # (Auto) Seg Neutrophils % Seg Neuts % (Manual) Lymphocytes % (Manual) Monocytes % (Manual) Basophils % (Manual) Seg Neutrophils # Seg Neutrophils # Man Lymphocytes # (Manual) Monocytes # (Manual) Eosinophils # (Manual) Basophils # (Manual) PT INR D-Dimer ABG pH POC ABG pCO2 POC ABG pO2 ABG pO2 ABG HCO3 ABG O2 Saturation ABG Base Excess ABG Hemoglobin ABG Oxyhemoglobin ABG Potassium ABG Glucose Oxyhemoglobin Carboxyhemoglobin Sodium Potassium Chloride Carbon Dioxide BUN Creatinine Glucose POC Glucose 123 H 120 H 119 H Calcium Ferritin Total Bilirubin Alkaline Phosphatase Lactate Dehydrogenase Total Creatine Kinase CK-MB (CK-2) Rel Index Troponin T C-Reactive Protein Total Protein Albumin Prealbumin LDL Cholesterol Direct HDL Cholesterol Arterial Blood Glucose Arterial Blood Ionized Calcium Urine WBC (Auto) 04/05/20 04/05/20 04/05/20 05:14 12:16 18:48 WBC RBC Hgb Hct MCV MCH RDW Plt Count Lymph % (Auto) [place] % (Auto) Lymph # (Auto) [place] # (Auto) Seg Neutrophils % Seg Neuts % (Manual) Lymphocytes % (Manual) Monocytes % (Manual) Basophils % (Manual) Seg Neutrophils # Seg Neutrophils # Man Lymphocytes # (Manual) Monocytes # (Manual) Eosinophils # (Manual) Basophils # (Manual) PT INR D-Dimer ABG pH POC ABG pCO2 POC ABG pO2 ABG pO2 ABG HCO3 ABG O2 Saturation ABG Base Excess ABG Hemoglobin ABG Oxyhemoglobin ABG Potassium ABG Glucose Oxyhemoglobin Carboxyhemoglobin Sodium Potassium Chloride Carbon Dioxide BUN Creatinine Glucose POC Glucose 123 H 148 H 106 H Calcium Ferritin Total Bilirubin Alkaline Phosphatase Lactate Dehydrogenase Total Creatine Kinase CK-MB (CK-2) Rel Index Troponin T C-Reactive Protein Total Protein Albumin Prealbumin LDL Cholesterol Direct HDL Cholesterol Arterial Blood Glucose Arterial Blood Ionized Calcium Urine WBC (Auto) 04/06/20 04/06/20 04/06/20 00:47 03:26 08:24 WBC RBC Hgb Hct MCV MCH RDW Plt Count Lymph % (Auto) [place] % (Auto) Lymph # (Auto) [place] # (Auto) Seg Neutrophils % Seg Neuts % (Manual) Lymphocytes % (Manual) Monocytes % (Manual) Basophils % (Manual) Seg Neutrophils # Seg Neutrophils # Man Lymphocytes # (Manual) Monocytes # (Manual) Eosinophils # (Manual) Basophils # (Manual) PT INR D-Dimer ABG pH POC ABG pCO2 POC ABG pO2 ABG pO2 ABG HCO3 ABG O2 Saturation ABG Base Excess ABG Hemoglobin ABG Oxyhemoglobin ABG Potassium ABG Glucose Oxyhemoglobin Carboxyhemoglobin Sodium Potassium Chloride Carbon Dioxide BUN Creatinine Glucose POC Glucose 129 H 134 H 131 H Calcium Ferritin Total Bilirubin Alkaline Phosphatase Lactate Dehydrogenase Total Creatine Kinase CK-MB (CK-2) Rel Index Troponin T C-Reactive Protein Total Protein Albumin Prealbumin LDL Cholesterol Direct HDL Cholesterol Arterial Blood Glucose Arterial Blood Ionized Calcium Urine WBC (Auto) 04/06/20 04/06/20 04/06/20 11:16 16:27 23:01 WBC RBC Hgb Hct MCV MCH RDW Plt Count Lymph % (Auto) [place] % (Auto) Lymph # (Auto) [place] # (Auto) Seg Neutrophils % Seg Neuts % (Manual) Lymphocytes % (Manual) Monocytes % (Manual) Basophils % (Manual) Seg Neutrophils # Seg Neutrophils # Man Lymphocytes # (Manual) Monocytes # (Manual) Eosinophils # (Manual) Basophils # (Manual) PT INR D-Dimer ABG pH POC ABG pCO2 POC ABG pO2 ABG pO2 ABG HCO3 ABG O2 Saturation ABG Base Excess ABG Hemoglobin ABG Oxyhemoglobin ABG Potassium ABG Glucose Oxyhemoglobin Carboxyhemoglobin Sodium Potassium Chloride Carbon Dioxide BUN Creatinine Glucose POC Glucose 131 H 107 H 125 H Calcium Ferritin Total Bilirubin Alkaline Phosphatase Lactate Dehydrogenase Total Creatine Kinase CK-MB (CK-2) Rel Index Troponin T C-Reactive Protein Total Protein Albumin Prealbumin LDL Cholesterol Direct HDL Cholesterol Arterial Blood Glucose Arterial Blood Ionized Calcium Urine WBC (Auto) 04/07/20 04/07/20 04/07/20 05:24 12:41 17:40 WBC RBC Hgb Hct MCV MCH RDW Plt Count Lymph % (Auto) [place] % (Auto) Lymph # (Auto) [place] # (Auto) Seg Neutrophils % Seg Neuts % (Manual) Lymphocytes % (Manual) Monocytes % (Manual) Basophils % (Manual) Seg Neutrophils # Seg Neutrophils # Man Lymphocytes # (Manual) Monocytes # (Manual) Eosinophils # (Manual) Basophils # (Manual) PT INR D-Dimer ABG pH POC ABG pCO2 POC ABG pO2 ABG pO2 ABG HCO3 ABG O2 Saturation ABG Base Excess ABG Hemoglobin ABG Oxyhemoglobin ABG Potassium ABG Glucose Oxyhemoglobin Carboxyhemoglobin Sodium Potassium Chloride Carbon Dioxide BUN Creatinine Glucose POC Glucose 125 H 145 H 123 H Calcium Ferritin Total Bilirubin Alkaline Phosphatase Lactate Dehydrogenase Total Creatine Kinase CK-MB (CK-2) Rel Index Troponin T C-Reactive Protein Total Protein Albumin Prealbumin LDL Cholesterol Direct HDL Cholesterol Arterial Blood Glucose Arterial Blood Ionized Calcium Urine WBC (Auto) 04/07/20 04/08/20 04/08/20 23:22 05:40 11:29 WBC RBC Hgb Hct MCV MCH RDW Plt Count Lymph % (Auto) [place] % (Auto) Lymph # (Auto) [place] # (Auto) Seg Neutrophils % Seg Neuts % (Manual) Lymphocytes % (Manual) Monocytes % (Manual) Basophils % (Manual) Seg Neutrophils # Seg Neutrophils # Man Lymphocytes # (Manual) Monocytes # (Manual) Eosinophils # (Manual) Basophils # (Manual) PT INR D-Dimer ABG pH POC ABG pCO2 POC ABG pO2 ABG pO2 ABG HCO3 ABG O2 Saturation ABG Base Excess ABG Hemoglobin ABG Oxyhemoglobin ABG Potassium ABG Glucose Oxyhemoglobin Carboxyhemoglobin Sodium Potassium Chloride Carbon Dioxide BUN Creatinine Glucose POC Glucose 133 H 125 H 116 H Calcium Ferritin Total Bilirubin Alkaline Phosphatase Lactate Dehydrogenase Total Creatine Kinase CK-MB (CK-2) Rel Index Troponin T C-Reactive Protein Total Protein Albumin Prealbumin LDL Cholesterol Direct HDL Cholesterol Arterial Blood Glucose Arterial Blood Ionized Calcium Urine WBC (Auto) 04/08/20 04/09/20 04/09/20 17:43 05:47 12:22 WBC RBC Hgb Hct MCV MCH RDW Plt Count Lymph % (Auto) [place] % (Auto) Lymph # (Auto) [place] # (Auto) Seg Neutrophils % Seg Neuts % (Manual) Lymphocytes % (Manual) Monocytes % (Manual) Basophils % (Manual) Seg Neutrophils # Seg Neutrophils # Man Lymphocytes # (Manual) Monocytes # (Manual) Eosinophils # (Manual) Basophils # (Manual) PT INR D-Dimer ABG pH POC ABG pCO2 POC ABG pO2 ABG pO2 ABG HCO3 ABG O2 Saturation ABG Base Excess ABG Hemoglobin ABG Oxyhemoglobin ABG Potassium ABG Glucose Oxyhemoglobin Carboxyhemoglobin Sodium Potassium Chloride Carbon Dioxide BUN Creatinine Glucose POC Glucose 123 H 108 H 116 H Calcium Ferritin Total Bilirubin Alkaline Phosphatase Lactate Dehydrogenase Total Creatine Kinase CK-MB (CK-2) Rel Index Troponin T C-Reactive Protein Total Protein Albumin Prealbumin LDL Cholesterol Direct HDL Cholesterol Arterial Blood Glucose Arterial Blood Ionized Calcium Urine WBC (Auto) 04/09/20 04/09/20 04/10/20 17:24 23:52 06:10 WBC RBC Hgb Hct MCV MCH RDW Plt Count Lymph % (Auto) [place] % (Auto) Lymph # (Auto) [place] # (Auto) Seg Neutrophils % Seg Neuts % (Manual) Lymphocytes % (Manual) Monocytes % (Manual) Basophils % (Manual) Seg Neutrophils # Seg Neutrophils # Man Lymphocytes # (Manual) Monocytes # (Manual) Eosinophils # (Manual) Basophils # (Manual) PT INR D-Dimer ABG pH POC ABG pCO2 POC ABG pO2 ABG pO2 ABG HCO3 ABG O2 Saturation ABG Base Excess ABG Hemoglobin ABG Oxyhemoglobin ABG Potassium ABG Glucose Oxyhemoglobin Carboxyhemoglobin Sodium Potassium Chloride Carbon Dioxide BUN Creatinine Glucose POC Glucose 108 H 126 H 122 H Calcium Ferritin Total Bilirubin Alkaline Phosphatase Lactate Dehydrogenase Total Creatine Kinase CK-MB (CK-2) Rel Index Troponin T C-Reactive Protein Total Protein Albumin Prealbumin LDL Cholesterol Direct HDL Cholesterol Arterial Blood Glucose Arterial Blood Ionized Calcium Urine WBC (Auto) 04/10/20 04/10/20 04/10/20 11:27 18:11 23:24 WBC RBC Hgb Hct MCV MCH RDW Plt Count Lymph % (Auto) [place] % (Auto) Lymph # (Auto) [place] # (Auto) Seg Neutrophils % Seg Neuts % (Manual) Lymphocytes % (Manual) Monocytes % (Manual) Basophils % (Manual) Seg Neutrophils # Seg Neutrophils # Man Lymphocytes # (Manual) Monocytes # (Manual) Eosinophils # (Manual) Basophils # (Manual) PT INR D-Dimer ABG pH POC ABG pCO2 POC ABG pO2 ABG pO2 ABG HCO3 ABG O2 Saturation ABG Base Excess ABG Hemoglobin ABG Oxyhemoglobin ABG Potassium ABG Glucose Oxyhemoglobin Carboxyhemoglobin Sodium Potassium Chloride Carbon Dioxide BUN Creatinine Glucose POC Glucose 129 H 125 H 107 H Calcium Ferritin Total Bilirubin Alkaline Phosphatase Lactate Dehydrogenase Total Creatine Kinase CK-MB (CK-2) Rel Index Troponin T C-Reactive Protein Total Protein Albumin Prealbumin LDL Cholesterol Direct HDL Cholesterol Arterial Blood Glucose Arterial Blood Ionized Calcium Urine WBC (Auto) 04/11/20 04/11/20 04/11/20 05:28 11:46 23:49 WBC RBC Hgb Hct MCV MCH RDW Plt Count Lymph % (Auto) [place] % (Auto) Lymph # (Auto) [place] # (Auto) Seg Neutrophils % Seg Neuts % (Manual) Lymphocytes % (Manual) Monocytes % (Manual) Basophils % (Manual) Seg Neutrophils # Seg Neutrophils # Man Lymphocytes # (Manual) Monocytes # (Manual) Eosinophils # (Manual) Basophils # (Manual) PT INR D-Dimer ABG pH POC ABG pCO2 POC ABG pO2 ABG pO2 ABG HCO3 ABG O2 Saturation ABG Base Excess ABG Hemoglobin ABG Oxyhemoglobin ABG Potassium ABG Glucose Oxyhemoglobin Carboxyhemoglobin Sodium Potassium Chloride Carbon Dioxide BUN Creatinine Glucose POC Glucose 122 H 122 H 116 H Calcium Ferritin Total Bilirubin Alkaline Phosphatase Lactate Dehydrogenase Total Creatine Kinase CK-MB (CK-2) Rel Index Troponin T C-Reactive Protein Total Protein Albumin Prealbumin LDL Cholesterol Direct HDL Cholesterol Arterial Blood Glucose Arterial Blood Ionized Calcium Urine WBC (Auto) 04/12/20 04/12/20 04/12/20 09:07 09:07 11:39 WBC 13.1 H RBC 3.59 L Hgb 9.5 L Hct 29.8 L MCV 83 L MCH 26 L RDW 16.6 H Plt Count 591 H Lymph % (Auto) [place] % (Auto) Lymph # (Auto) [place] # (Auto) Seg Neutrophils % Seg Neuts % (Manual) 86.0 H Lymphocytes % (Manual) 7.0 L Monocytes % (Manual) Basophils % (Manual) Seg Neutrophils # Seg Neutrophils # Man 11.3 H Lymphocytes # (Manual) 0.9 L Monocytes # (Manual) Eosinophils # (Manual) Basophils # (Manual) PT INR D-Dimer ABG pH POC ABG pCO2 POC ABG pO2 ABG pO2 ABG HCO3 ABG O2 Saturation ABG Base Excess ABG Hemoglobin ABG Oxyhemoglobin ABG Potassium ABG Glucose Oxyhemoglobin Carboxyhemoglobin Sodium Potassium Chloride Carbon Dioxide 36 H BUN Creatinine < 0.2 L Glucose 132 H POC Glucose 136 H Calcium Ferritin Total Bilirubin Alkaline Phosphatase Lactate Dehydrogenase Total Creatine Kinase CK-MB (CK-2) Rel Index Troponin T C-Reactive Protein Total Protein Albumin 2.7 L Prealbumin LDL Cholesterol Direct HDL Cholesterol Arterial Blood Glucose Arterial Blood Ionized Calcium Urine WBC (Auto) 04/12/20 04/12/20 04/13/20 18:13 23:07 05:45 WBC RBC Hgb Hct MCV MCH RDW Plt Count Lymph % (Auto) [place] % (Auto) Lymph # (Auto) [place] # (Auto) Seg Neutrophils % Seg Neuts % (Manual) Lymphocytes % (Manual) Monocytes % (Manual) Basophils % (Manual) Seg Neutrophils # Seg Neutrophils # Man Lymphocytes # (Manual) Monocytes # (Manual) Eosinophils # (Manual) Basophils # (Manual) PT INR D-Dimer ABG pH POC ABG pCO2 POC ABG pO2 ABG pO2 ABG HCO3 ABG O2 Saturation ABG Base Excess ABG Hemoglobin ABG Oxyhemoglobin ABG Potassium ABG Glucose Oxyhemoglobin Carboxyhemoglobin Sodium Potassium Chloride Carbon Dioxide BUN Creatinine Glucose POC Glucose 107 H 106 H 125 H Calcium Ferritin Total Bilirubin Alkaline Phosphatase Lactate Dehydrogenase Total Creatine Kinase CK-MB (CK-2) Rel Index Troponin T C-Reactive Protein Total Protein Albumin Prealbumin LDL Cholesterol Direct HDL Cholesterol Arterial Blood Glucose Arterial Blood Ionized Calcium Urine WBC (Auto) 04/13/20 04/13/20 04/13/20 11:18 17:56 23:33 WBC RBC Hgb Hct MCV MCH RDW Plt Count Lymph % (Auto) [place] % (Auto) Lymph # (Auto) [place] # (Auto) Seg Neutrophils % Seg Neuts % (Manual) Lymphocytes % (Manual) Monocytes % (Manual) Basophils % (Manual) Seg Neutrophils # Seg Neutrophils # Man Lymphocytes # (Manual) Monocytes # (Manual) Eosinophils # (Manual) Basophils # (Manual) PT INR D-Dimer ABG pH POC ABG pCO2 POC ABG pO2 ABG pO2 ABG HCO3 ABG O2 Saturation ABG Base Excess ABG Hemoglobin ABG Oxyhemoglobin ABG Potassium ABG Glucose Oxyhemoglobin Carboxyhemoglobin Sodium Potassium Chloride Carbon Dioxide BUN Creatinine Glucose POC Glucose 133 H 110 H 114 H Calcium Ferritin Total Bilirubin Alkaline Phosphatase Lactate Dehydrogenase Total Creatine Kinase CK-MB (CK-2) Rel Index Troponin T C-Reactive Protein Total Protein Albumin Prealbumin LDL Cholesterol Direct HDL Cholesterol Arterial Blood Glucose Arterial Blood Ionized Calcium Urine WBC (Auto) 04/14/20 04/14/20 04/14/20 05:58 11:45 17:48 WBC RBC Hgb Hct MCV MCH RDW Plt Count Lymph % (Auto) [place] % (Auto) Lymph # (Auto) [place] # (Auto) Seg Neutrophils % Seg Neuts % (Manual) Lymphocytes % (Manual) Monocytes % (Manual) Basophils % (Manual) Seg Neutrophils # Seg Neutrophils # Man Lymphocytes # (Manual) Monocytes # (Manual) Eosinophils # (Manual) Basophils # (Manual) PT INR D-Dimer ABG pH POC ABG pCO2 POC ABG pO2 ABG pO2 ABG HCO3 ABG O2 Saturation ABG Base Excess ABG Hemoglobin ABG Oxyhemoglobin ABG Potassium ABG Glucose Oxyhemoglobin Carboxyhemoglobin Sodium Potassium Chloride Carbon Dioxide BUN Creatinine Glucose POC Glucose 115 H 122 H 124 H Calcium Ferritin Total Bilirubin Alkaline Phosphatase Lactate Dehydrogenase Total Creatine Kinase CK-MB (CK-2) Rel Index Troponin T C-Reactive Protein Total Protein Albumin Prealbumin LDL Cholesterol Direct HDL Cholesterol Arterial Blood Glucose Arterial Blood Ionized Calcium Urine WBC (Auto) 04/15/20 04/15/20 04/15/20 00:11 05:38 11:31 WBC RBC Hgb Hct MCV MCH RDW Plt Count Lymph % (Auto) [place] % (Auto) Lymph # (Auto) [place] # (Auto) Seg Neutrophils % Seg Neuts % (Manual) Lymphocytes % (Manual) Monocytes % (Manual) Basophils % (Manual) Seg Neutrophils # Seg Neutrophils # Man Lymphocytes # (Manual) Monocytes # (Manual) Eosinophils # (Manual) Basophils # (Manual) PT INR D-Dimer ABG pH POC ABG pCO2 POC ABG pO2 ABG pO2 ABG HCO3 ABG O2 Saturation ABG Base Excess ABG Hemoglobin ABG Oxyhemoglobin ABG Potassium ABG Glucose Oxyhemoglobin Carboxyhemoglobin Sodium Potassium Chloride Carbon Dioxide BUN Creatinine Glucose POC Glucose 120 H 109 H 123 H Calcium Ferritin Total Bilirubin Alkaline Phosphatase Lactate Dehydrogenase Total Creatine Kinase CK-MB (CK-2) Rel Index Troponin T C-Reactive Protein Total Protein Albumin Prealbumin LDL Cholesterol Direct HDL Cholesterol Arterial Blood Glucose Arterial Blood Ionized Calcium Urine WBC (Auto) 04/15/20 04/16/20 04/16/20 17:35 06:00 11:29 WBC RBC Hgb Hct MCV MCH RDW Plt Count Lymph % (Auto) [place] % (Auto) Lymph # (Auto) [place] # (Auto) Seg Neutrophils % Seg Neuts % (Manual) Lymphocytes % (Manual) Monocytes % (Manual) Basophils % (Manual) Seg Neutrophils # Seg Neutrophils # Man Lymphocytes # (Manual) Monocytes # (Manual) Eosinophils # (Manual) Basophils # (Manual) PT INR D-Dimer ABG pH POC ABG pCO2 POC ABG pO2 ABG pO2 ABG HCO3 ABG O2 Saturation ABG Base Excess ABG Hemoglobin ABG Oxyhemoglobin ABG Potassium ABG Glucose Oxyhemoglobin Carboxyhemoglobin Sodium Potassium Chloride Carbon Dioxide BUN Creatinine Glucose POC Glucose 111 H 142 H 108 H Calcium Ferritin Total Bilirubin Alkaline Phosphatase Lactate Dehydrogenase Total Creatine Kinase CK-MB (CK-2) Rel Index Troponin T C-Reactive Protein Total Protein Albumin Prealbumin LDL Cholesterol Direct HDL Cholesterol Arterial Blood Glucose Arterial Blood Ionized Calcium Urine WBC (Auto) 04/17/20 04/17/20 04/17/20 05:09 06:53 06:53 WBC 14.2 H RBC Hgb 10.1 L Hct 31.5 L MCV MCH 27 L RDW 17.2 H Plt Count 643 H Lymph % (Auto) [place] % (Auto) Lymph # (Auto) [place] # (Auto) Seg Neutrophils % Seg Neuts % (Manual) Lymphocytes % (Manual) Monocytes % (Manual) Basophils % (Manual) Seg Neutrophils # Seg Neutrophils # Man Lymphocytes # (Manual) Monocytes # (Manual) Eosinophils # (Manual) Basophils # (Manual) PT INR D-Dimer ABG pH POC ABG pCO2 POC ABG pO2 ABG pO2 ABG HCO3 ABG O2 Saturation ABG Base Excess ABG Hemoglobin ABG Oxyhemoglobin ABG Potassium ABG Glucose Oxyhemoglobin Carboxyhemoglobin Sodium Potassium Chloride 97.7 L Carbon Dioxide 38 H BUN Creatinine < 0.2 L Glucose 126 H POC Glucose 131 H Calcium Ferritin Total Bilirubin Alkaline Phosphatase Lactate Dehydrogenase Total Creatine Kinase CK-MB (CK-2) Rel Index Troponin T C-Reactive Protein Total Protein Albumin Prealbumin LDL Cholesterol Direct HDL Cholesterol Arterial Blood Glucose Arterial Blood Ionized Calcium Urine WBC (Auto) 04/17/20 04/18/20 04/18/20 11:21 00:23 04:01 WBC 15.3 H RBC Hgb 10.1 L Hct 31.9 L MCV 82 L MCH 26 L RDW 17.2 H Plt Count 665 H Lymph % (Auto) 12.9 L [place] % (Auto) Lymph # (Auto) [place] # (Auto) 1.1 H Seg Neutrophils % 78.0 H Seg Neuts % (Manual) Lymphocytes % (Manual) Monocytes % (Manual) Basophils % (Manual) Seg Neutrophils # 11.9 H Seg Neutrophils # Man Lymphocytes # (Manual) Monocytes # (Manual) Eosinophils # (Manual) Basophils # (Manual) PT INR D-Dimer ABG pH POC ABG pCO2 POC ABG pO2 ABG pO2 ABG HCO3 ABG O2 Saturation ABG Base Excess ABG Hemoglobin ABG Oxyhemoglobin ABG Potassium ABG Glucose Oxyhemoglobin Carboxyhemoglobin Sodium Potassium Chloride Carbon Dioxide BUN Creatinine Glucose POC Glucose 140 H 125 H Calcium Ferritin Total Bilirubin Alkaline Phosphatase Lactate Dehydrogenase Total Creatine Kinase CK-MB (CK-2) Rel Index Troponin T C-Reactive Protein Total Protein Albumin Prealbumin LDL Cholesterol Direct HDL Cholesterol Arterial Blood Glucose Arterial Blood Ionized Calcium Urine WBC (Auto) 04/18/20 04/18/20 04/18/20 04:01 11:29 17:30 WBC RBC Hgb Hct MCV MCH RDW Plt Count Lymph % (Auto) [place] % (Auto) Lymph # (Auto) [place] # (Auto) Seg Neutrophils % Seg Neuts % (Manual) Lymphocytes % (Manual) Monocytes % (Manual) Basophils % (Manual) Seg Neutrophils # Seg Neutrophils # Man Lymphocytes # (Manual) Monocytes # (Manual) Eosinophils # (Manual) Basophils # (Manual) PT INR D-Dimer ABG pH POC ABG pCO2 POC ABG pO2 ABG pO2 ABG HCO3 ABG O2 Saturation ABG Base Excess ABG Hemoglobin ABG Oxyhemoglobin ABG Potassium ABG Glucose Oxyhemoglobin Carboxyhemoglobin Sodium Potassium Chloride 97.0 L Carbon Dioxide 38 H BUN Creatinine < 0.2 L Glucose 117 H POC Glucose 136 H 107 H Calcium Ferritin Total Bilirubin Alkaline Phosphatase Lactate Dehydrogenase Total Creatine Kinase CK-MB (CK-2) Rel Index Troponin T C-Reactive Protein Total Protein Albumin Prealbumin LDL Cholesterol Direct HDL Cholesterol Arterial Blood Glucose Arterial Blood Ionized Calcium Urine WBC (Auto) 04/18/20 04/19/20 04/19/20 23:19 06:51 06:51 WBC 12.2 H RBC Hgb 9.8 L Hct 31.1 L MCV 82 L MCH 26 L RDW 17.2 H Plt Count 549 H Lymph % (Auto) 6.5 L [place] % (Auto) Lymph # (Auto) 0.8 L [place] # (Auto) Seg Neutrophils % 86.7 H Seg Neuts % (Manual) Lymphocytes % (Manual) Monocytes % (Manual) Basophils % (Manual) Seg Neutrophils # 10.6 H Seg Neutrophils # Man Lymphocytes # (Manual) Monocytes # (Manual) Eosinophils # (Manual) Basophils # (Manual) PT INR D-Dimer ABG pH POC ABG pCO2 POC ABG pO2 ABG pO2 ABG HCO3 ABG O2 Saturation ABG Base Excess ABG Hemoglobin ABG Oxyhemoglobin ABG Potassium ABG Glucose Oxyhemoglobin Carboxyhemoglobin Sodium Potassium Chloride 97.8 L Carbon Dioxide 38 H BUN Creatinine < 0.2 L Glucose 123 H POC Glucose 127 H Calcium Ferritin Total Bilirubin Alkaline Phosphatase Lactate Dehydrogenase Total Creatine Kinase CK-MB (CK-2) Rel Index Troponin T C-Reactive Protein Total Protein Albumin Prealbumin LDL Cholesterol Direct HDL Cholesterol Arterial Blood Glucose Arterial Blood Ionized Calcium Urine WBC (Auto) 04/19/20 04/19/20 04/20/20 13:41 18:33 05:56 WBC RBC Hgb Hct MCV MCH RDW Plt Count Lymph % (Auto) [place] % (Auto) Lymph # (Auto) [place] # (Auto) Seg Neutrophils % Seg Neuts % (Manual) Lymphocytes % (Manual) Monocytes % (Manual) Basophils % (Manual) Seg Neutrophils # Seg Neutrophils # Man Lymphocytes # (Manual) Monocytes # (Manual) Eosinophils # (Manual) Basophils # (Manual) PT INR D-Dimer ABG pH POC ABG pCO2 POC ABG pO2 ABG pO2 ABG HCO3 ABG O2 Saturation ABG Base Excess ABG Hemoglobin ABG Oxyhemoglobin ABG Potassium ABG Glucose Oxyhemoglobin Carboxyhemoglobin Sodium Potassium Chloride Carbon Dioxide BUN Creatinine Glucose POC Glucose 116 H 124 H 130 H Calcium Ferritin Total Bilirubin Alkaline Phosphatase Lactate Dehydrogenase Total Creatine Kinase CK-MB (CK-2) Rel Index Troponin T C-Reactive Protein Total Protein Albumin Prealbumin LDL Cholesterol Direct HDL Cholesterol Arterial Blood Glucose Arterial Blood Ionized Calcium Urine WBC (Auto) 04/20/20 04/20/20 04/20/20 06:28 06:28 11:46 WBC RBC Hgb 10.2 L Hct 31.5 L MCV 82 L MCH 27 L RDW 17.1 H Plt Count 546 H Lymph % (Auto) 10.0 L [place] % (Auto) 9.8 H Lymph # (Auto) 1.1 L [place] # (Auto) 1.1 H Seg Neutrophils % 78.4 H Seg Neuts % (Manual) Lymphocytes % (Manual) Monocytes % (Manual) Basophils % (Manual) Seg Neutrophils # 8.5 H Seg Neutrophils # Man Lymphocytes # (Manual) Monocytes # (Manual) Eosinophils # (Manual) Basophils # (Manual) PT INR D-Dimer ABG pH POC ABG pCO2 POC ABG pO2 ABG pO2 ABG HCO3 ABG O2 Saturation ABG Base Excess ABG Hemoglobin ABG Oxyhemoglobin ABG Potassium ABG Glucose Oxyhemoglobin Carboxyhemoglobin Sodium Potassium Chloride 97.0 L Carbon Dioxide 38 H BUN Creatinine < 0.2 L Glucose 138 H POC Glucose 130 H Calcium Ferritin Total Bilirubin Alkaline Phosphatase Lactate Dehydrogenase Total Creatine Kinase CK-MB (CK-2) Rel Index Troponin T C-Reactive Protein Total Protein Albumin Prealbumin LDL Cholesterol Direct HDL Cholesterol Arterial Blood Glucose Arterial Blood Ionized Calcium Urine WBC (Auto) 04/20/20 04/21/20 04/21/20 23:31 05:55 05:55 WBC RBC Hgb 10.0 L Hct 31.1 L MCV 82 L MCH 26 L RDW 17.0 H Plt Count 535 H Lymph % (Auto) [place] % (Auto) 9.2 H Lymph # (Auto) 1.1 L [place] # (Auto) Seg Neutrophils % 75.4 H Seg Neuts % (Manual) Lymphocytes % (Manual) Monocytes % (Manual) Basophils % (Manual) Seg Neutrophils # Seg Neutrophils # Man Lymphocytes # (Manual) Monocytes # (Manual) Eosinophils # (Manual) Basophils # (Manual) PT INR D-Dimer ABG pH POC ABG pCO2 POC ABG pO2 ABG pO2 ABG HCO3 ABG O2 Saturation ABG Base Excess ABG Hemoglobin ABG Oxyhemoglobin ABG Potassium ABG Glucose Oxyhemoglobin Carboxyhemoglobin Sodium Potassium Chloride 95.0 L Carbon Dioxide 34 H BUN Creatinine < 0.2 L Glucose 125 H POC Glucose 116 H Calcium Ferritin Total Bilirubin Alkaline Phosphatase Lactate Dehydrogenase Total Creatine Kinase CK-MB (CK-2) Rel Index Troponin T C-Reactive Protein Total Protein Albumin Prealbumin LDL Cholesterol Direct HDL Cholesterol Arterial Blood Glucose Arterial Blood Ionized Calcium Urine WBC (Auto) 04/22/20 04/22/20 04/22/20 00:01 07:45 07:45 WBC RBC Hgb 10.0 L Hct 30.7 L MCV 81 L MCH 27 L RDW 17.1 H Plt Count 490 H Lymph % (Auto) [place] % (Auto) Lymph # (Auto) [place] # (Auto) Seg Neutrophils % Seg Neuts % (Manual) 75.0 H Lymphocytes % (Manual) 11.0 L Monocytes % (Manual) 9.0 H Basophils % (Manual) Seg Neutrophils # Seg Neutrophils # Man Lymphocytes # (Manual) 0.8 L Monocytes # (Manual) Eosinophils # (Manual) Basophils # (Manual) PT INR D-Dimer ABG pH POC ABG pCO2 POC ABG pO2 ABG pO2 ABG HCO3 ABG O2 Saturation ABG Base Excess ABG Hemoglobin ABG Oxyhemoglobin ABG Potassium ABG Glucose Oxyhemoglobin Carboxyhemoglobin Sodium Potassium Chloride 96.3 L Carbon Dioxide 40 H BUN Creatinine < 0.2 L Glucose 109 H POC Glucose 110 H Calcium Ferritin Total Bilirubin Alkaline Phosphatase Lactate Dehydrogenase Total Creatine Kinase CK-MB (CK-2) Rel Index Troponin T C-Reactive Protein Total Protein Albumin Prealbumin LDL Cholesterol Direct HDL Cholesterol Arterial Blood Glucose Arterial Blood Ionized Calcium Urine WBC (Auto) 04/23/20 04/23/20 04/23/20 04:28 04:28 04:28 WBC RBC 3.64 L Hgb 9.7 L Hct 29.4 L MCV 81 L MCH 27 L RDW 17.2 H Plt Count 527 H Lymph % (Auto) Oliver % (Auto) 8.9 H Lymph # (Auto) Oliver # (Auto) Seg Neutrophils % Seg Neuts % (Manual) Lymphocytes % (Manual) Monocytes % (Manual) Basophils % (Manual) Seg Neutrophils # Seg Neutrophils # Man Lymphocytes # (Manual) Monocytes # (Manual) Eosinophils # (Manual) Basophils # (Manual) PT INR D-Dimer ABG pH POC ABG pCO2 POC ABG pO2 ABG pO2 ABG HCO3 ABG O2 Saturation ABG Base Excess ABG Hemoglobin ABG Oxyhemoglobin ABG Potassium ABG Glucose Oxyhemoglobin Carboxyhemoglobin Sodium Potassium Chloride 96.4 L Carbon Dioxide 32 H D BUN Creatinine < 0.2 L Glucose 134 H POC Glucose Calcium Ferritin Total Bilirubin Alkaline Phosphatase Lactate Dehydrogenase Total Creatine Kinase CK-MB (CK-2) Rel Index Troponin T 0.151 H* C-Reactive Protein Total Protein Albumin Prealbumin LDL Cholesterol Direct HDL Cholesterol 29 L Arterial Blood Glucose Arterial Blood Ionized Calcium Urine WBC (Auto) 04/23/20 04/23/20 04/24/20 06:03 23:41 05:28 WBC RBC 3.56 L Hgb 9.5 L Hct 28.9 L MCV 81 L MCH 27 L RDW 17.4 H Plt Count 462 H Lymph % (Auto) Oliver % (Auto) Lymph # (Auto) Oliver # (Auto) Seg Neutrophils % Seg Neuts % (Manual) 80.0 H Lymphocytes % (Manual) Monocytes % (Manual) Basophils % (Manual) Seg Neutrophils # Seg Neutrophils # Man Lymphocytes # (Manual) Monocytes # (Manual) Eosinophils # (Manual) Basophils # (Manual) PT INR D-Dimer ABG pH POC ABG pCO2 POC ABG pO2 ABG pO2 ABG HCO3 ABG O2 Saturation ABG Base Excess ABG Hemoglobin ABG Oxyhemoglobin ABG Potassium ABG Glucose Oxyhemoglobin Carboxyhemoglobin Sodium Potassium Chloride Carbon Dioxide BUN Creatinine Glucose POC Glucose 132 H 117 H Calcium Ferritin Total Bilirubin Alkaline Phosphatase Lactate Dehydrogenase Total Creatine Kinase CK-MB (CK-2) Rel Index Troponin T C-Reactive Protein Total Protein Albumin Prealbumin LDL Cholesterol Direct HDL Cholesterol Arterial Blood Glucose Arterial Blood Ionized Calcium Urine WBC (Auto) 04/24/20 04/24/20 04/24/20 05:28 05:28 05:33 WBC RBC Hgb Hct MCV MCH RDW Plt Count Lymph % (Auto) Oliver % (Auto) Lymph # (Auto) Oliver # (Auto) Seg Neutrophils % Seg Neuts % (Manual) Lymphocytes % (Manual) Monocytes % (Manual) Basophils % (Manual) Seg Neutrophils # Seg Neutrophils # Man Lymphocytes # (Manual) Monocytes # (Manual) Eosinophils # (Manual) Basophils # (Manual) PT INR D-Dimer ABG pH POC ABG pCO2 POC ABG pO2 ABG pO2 ABG HCO3 ABG O2 Saturation ABG Base Excess ABG Hemoglobin ABG Oxyhemoglobin ABG Potassium ABG Glucose Oxyhemoglobin Carboxyhemoglobin Sodium Potassium Chloride 96.1 L Carbon Dioxide 40 H D BUN Creatinine < 0.2 L Glucose 115 H POC Glucose 109 H Calcium Ferritin Total Bilirubin Alkaline Phosphatase Lactate Dehydrogenase Total Creatine Kinase CK-MB (CK-2) Rel Index Troponin T 0.181 H* C-Reactive Protein Total Protein Albumin Prealbumin LDL Cholesterol Direct HDL Cholesterol Arterial Blood Glucose Arterial Blood Ionized Calcium Urine WBC (Auto) 04/24/20 04/24/20 04/25/20 11:17 18:23 00:12 WBC RBC Hgb Hct MCV MCH RDW Plt Count Lymph % (Auto) Oliver % (Auto) Lymph # (Auto) Oliver # (Auto) Seg Neutrophils % Seg Neuts % (Manual) Lymphocytes % (Manual) Monocytes % (Manual) Basophils % (Manual) Seg Neutrophils # Seg Neutrophils # Man Lymphocytes # (Manual) Monocytes # (Manual) Eosinophils # (Manual) Basophils # (Manual) PT INR D-Dimer ABG pH POC ABG pCO2 POC ABG pO2 ABG pO2 ABG HCO3 ABG O2 Saturation ABG Base Excess ABG Hemoglobin ABG Oxyhemoglobin ABG Potassium ABG Glucose Oxyhemoglobin Carboxyhemoglobin Sodium Potassium Chloride Carbon Dioxide BUN Creatinine Glucose POC Glucose 117 H 109 H 113 H Calcium Ferritin Total Bilirubin Alkaline Phosphatase Lactate Dehydrogenase Total Creatine Kinase CK-MB (CK-2) Rel Index Troponin T C-Reactive Protein Total Protein Albumin Prealbumin LDL Cholesterol Direct HDL Cholesterol Arterial Blood Glucose Arterial Blood Ionized Calcium Urine WBC (Auto) 04/25/20 04/25/20 04/25/20 06:34 06:34 11:28 WBC 11.7 H RBC Hgb 10.0 L Hct 31.7 L MCV 82 L MCH 26 L RDW 17.5 H Plt Count 564 H Lymph % (Auto) Oliver % (Auto) Lymph # (Auto) Oliver # (Auto) Seg Neutrophils % Seg Neuts % (Manual) 78.0 H Lymphocytes % (Manual) 10.0 L Monocytes % (Manual) 9.0 H Basophils % (Manual) Seg Neutrophils # Seg Neutrophils # Man 9.1 H Lymphocytes # (Manual) Monocytes # (Manual) 1.1 H Eosinophils # (Manual) Basophils # (Manual) PT INR D-Dimer ABG pH POC ABG pCO2 POC ABG pO2 ABG pO2 ABG HCO3 ABG O2 Saturation ABG Base Excess ABG Hemoglobin ABG Oxyhemoglobin ABG Potassium ABG Glucose Oxyhemoglobin Carboxyhemoglobin Sodium Potassium Chloride Carbon Dioxide 39 H BUN Creatinine < 0.2 L Glucose 103 H POC Glucose 112 H Calcium Ferritin Total Bilirubin Alkaline Phosphatase Lactate Dehydrogenase Total Creatine Kinase CK-MB (CK-2) Rel Index Troponin T C-Reactive Protein Total Protein Albumin Prealbumin LDL Cholesterol Direct HDL Cholesterol Arterial Blood Glucose Arterial Blood Ionized Calcium Urine WBC (Auto) 04/27/20 04/27/20 04/27/20 11:48 17:08 23:31 WBC RBC Hgb Hct MCV MCH RDW Plt Count Lymph % (Auto) Oliver % (Auto) Lymph # (Auto) Oliver # (Auto) Seg Neutrophils % Seg Neuts % (Manual) Lymphocytes % (Manual) Monocytes % (Manual) Basophils % (Manual) Seg Neutrophils # Seg Neutrophils # Man Lymphocytes # (Manual) Monocytes # (Manual) Eosinophils # (Manual) Basophils # (Manual) PT INR D-Dimer ABG pH POC ABG pCO2 POC ABG pO2 ABG pO2 ABG HCO3 ABG O2 Saturation ABG Base Excess ABG Hemoglobin ABG Oxyhemoglobin ABG Potassium ABG Glucose Oxyhemoglobin Carboxyhemoglobin Sodium Potassium Chloride Carbon Dioxide BUN Creatinine Glucose POC Glucose 124 H 118 H 122 H Calcium Ferritin Total Bilirubin Alkaline Phosphatase Lactate Dehydrogenase Total Creatine Kinase CK-MB (CK-2) Rel Index Troponin T C-Reactive Protein Total Protein Albumin Prealbumin LDL Cholesterol Direct HDL Cholesterol Arterial Blood Glucose Arterial Blood Ionized Calcium Urine WBC (Auto) 04/28/20 04/29/20 04/29/20 05:42 00:14 05:30 WBC RBC Hgb Hct MCV MCH RDW Plt Count Lymph % (Auto) Oliver % (Auto) Lymph # (Auto) Oliver # (Auto) Seg Neutrophils % Seg Neuts % (Manual) Lymphocytes % (Manual) Monocytes % (Manual) Basophils % (Manual) Seg Neutrophils # Seg Neutrophils # Man Lymphocytes # (Manual) Monocytes # (Manual) Eosinophils # (Manual) Basophils # (Manual) PT INR D-Dimer ABG pH POC ABG pCO2 POC ABG pO2 ABG pO2 ABG HCO3 ABG O2 Saturation ABG Base Excess ABG Hemoglobin ABG Oxyhemoglobin ABG Potassium ABG Glucose Oxyhemoglobin Carboxyhemoglobin Sodium Potassium Chloride Carbon Dioxide BUN Creatinine Glucose POC Glucose 122 H 115 H 123 H Calcium Ferritin Total Bilirubin Alkaline Phosphatase Lactate Dehydrogenase Total Creatine Kinase CK-MB (CK-2) Rel Index Troponin T C-Reactive Protein Total Protein Albumin Prealbumin LDL Cholesterol Direct HDL Cholesterol Arterial Blood Glucose Arterial Blood Ionized Calcium Urine WBC (Auto) 04/30/20 05/01/20 05/01/20 00:29 05:39 12:30 WBC RBC Hgb Hct MCV MCH RDW Plt Count Lymph % (Auto) Oliver % (Auto) Lymph # (Auto) Oliver # (Auto) Seg Neutrophils % Seg Neuts % (Manual) Lymphocytes % (Manual) Monocytes % (Manual) Basophils % (Manual) Seg Neutrophils # Seg Neutrophils # Man Lymphocytes # (Manual) Monocytes # (Manual) Eosinophils # (Manual) Basophils # (Manual) PT INR D-Dimer ABG pH POC ABG pCO2 POC ABG pO2 ABG pO2 ABG HCO3 ABG O2 Saturation ABG Base Excess ABG Hemoglobin ABG Oxyhemoglobin ABG Potassium ABG Glucose Oxyhemoglobin Carboxyhemoglobin Sodium Potassium Chloride Carbon Dioxide BUN Creatinine Glucose POC Glucose 106 H 109 H 108 H Calcium Ferritin Total Bilirubin Alkaline Phosphatase Lactate Dehydrogenase Total Creatine Kinase CK-MB (CK-2) Rel Index Troponin T C-Reactive Protein Total Protein Albumin Prealbumin LDL Cholesterol Direct HDL Cholesterol Arterial Blood Glucose Arterial Blood Ionized Calcium Urine WBC (Auto) 05/01/20 05/03/20 05/03/20 23:35 05:09 11:36 WBC RBC Hgb Hct MCV MCH RDW Plt Count Lymph % (Auto) Oliver % (Auto) Lymph # (Auto) Oliver # (Auto) Seg Neutrophils % Seg Neuts % (Manual) Lymphocytes % (Manual) Monocytes % (Manual) Basophils % (Manual) Seg Neutrophils # Seg Neutrophils # Man Lymphocytes # (Manual) Monocytes # (Manual) Eosinophils # (Manual) Basophils # (Manual) PT INR D-Dimer ABG pH POC ABG pCO2 POC ABG pO2 ABG pO2 ABG HCO3 ABG O2 Saturation ABG Base Excess ABG Hemoglobin ABG Oxyhemoglobin ABG Potassium ABG Glucose Oxyhemoglobin Carboxyhemoglobin Sodium Potassium Chloride Carbon Dioxide BUN Creatinine Glucose POC Glucose 116 H 117 H 116 H Calcium Ferritin Total Bilirubin Alkaline Phosphatase Lactate Dehydrogenase Total Creatine Kinase CK-MB (CK-2) Rel Index Troponin T C-Reactive Protein Total Protein Albumin Prealbumin LDL Cholesterol Direct HDL Cholesterol Arterial Blood Glucose Arterial Blood Ionized Calcium Urine WBC (Auto) 05/03/20 05/03/20 05/03/20 14:06 14:06 23:39 WBC 12.5 H RBC Hgb 10.0 L Hct 31.2 L MCV 80 L MCH 26 L RDW 17.6 H Plt Count 488 H Lymph % (Auto) Oliver % (Auto) Lymph # (Auto) Oliver # (Auto) Seg Neutrophils % Seg Neuts % (Manual) Lymphocytes % (Manual) Monocytes % (Manual) Basophils % (Manual) Seg Neutrophils # Seg Neutrophils # Man Lymphocytes # (Manual) Monocytes # (Manual) Eosinophils # (Manual) Basophils # (Manual) PT INR D-Dimer ABG pH POC ABG pCO2 POC ABG pO2 ABG pO2 ABG HCO3 ABG O2 Saturation ABG Base Excess ABG Hemoglobin ABG Oxyhemoglobin ABG Potassium ABG Glucose Oxyhemoglobin Carboxyhemoglobin Sodium Potassium Chloride 95.4 L Carbon Dioxide 40 H BUN Creatinine < 0.2 L Glucose 121 H POC Glucose 107 H Calcium Ferritin Total Bilirubin Alkaline Phosphatase Lactate Dehydrogenase Total Creatine Kinase CK-MB (CK-2) Rel Index Troponin T C-Reactive Protein Total Protein Albumin Prealbumin LDL Cholesterol Direct HDL Cholesterol Arterial Blood Glucose Arterial Blood Ionized Calcium Urine WBC (Auto) 05/04/20 05/04/20 05/04/20 11:31 16:57 23:18 WBC RBC Hgb Hct MCV MCH RDW Plt Count Lymph % (Auto) Oliver % (Auto) Lymph # (Auto) Oliver # (Auto) Seg Neutrophils % Seg Neuts % (Manual) Lymphocytes % (Manual) Monocytes % (Manual) Basophils % (Manual) Seg Neutrophils # Seg Neutrophils # Man Lymphocytes # (Manual) Monocytes # (Manual) Eosinophils # (Manual) Basophils # (Manual) PT INR D-Dimer ABG pH POC ABG pCO2 POC ABG pO2 ABG pO2 ABG HCO3 ABG O2 Saturation ABG Base Excess ABG Hemoglobin ABG Oxyhemoglobin ABG Potassium ABG Glucose Oxyhemoglobin Carboxyhemoglobin Sodium Potassium Chloride Carbon Dioxide BUN Creatinine Glucose POC Glucose 113 H 126 H 126 H Calcium Ferritin Total Bilirubin Alkaline Phosphatase Lactate Dehydrogenase Total Creatine Kinase CK-MB (CK-2) Rel Index Troponin T C-Reactive Protein Total Protein Albumin Prealbumin LDL Cholesterol Direct HDL Cholesterol Arterial Blood Glucose Arterial Blood Ionized Calcium Urine WBC (Auto) 05/05/20 05/05/20 05/05/20 05:32 11:11 23:57 WBC RBC Hgb Hct MCV MCH RDW Plt Count Lymph % (Auto) Oliver % (Auto) Lymph # (Auto) Oliver # (Auto) Seg Neutrophils % Seg Neuts % (Manual) Lymphocytes % (Manual) Monocytes % (Manual) Basophils % (Manual) Seg Neutrophils # Seg Neutrophils # Man Lymphocytes # (Manual) Monocytes # (Manual) Eosinophils # (Manual) Basophils # (Manual) PT INR D-Dimer ABG pH POC ABG pCO2 POC ABG pO2 ABG pO2 ABG HCO3 ABG O2 Saturation ABG Base Excess ABG Hemoglobin ABG Oxyhemoglobin ABG Potassium ABG Glucose Oxyhemoglobin Carboxyhemoglobin Sodium Potassium Chloride Carbon Dioxide BUN Creatinine Glucose POC Glucose 109 H 124 H 119 H Calcium Ferritin Total Bilirubin Alkaline Phosphatase Lactate Dehydrogenase Total Creatine Kinase CK-MB (CK-2) Rel Index Troponin T C-Reactive Protein Total Protein Albumin Prealbumin LDL Cholesterol Direct HDL Cholesterol Arterial Blood Glucose Arterial Blood Ionized Calcium Urine WBC (Auto) 05/06/20 05/06/20 05/07/20 05:34 23:08 04:43 WBC RBC Hgb 10.1 L Hct 31.9 L MCV 81 L MCH 25 L RDW 17.6 H Plt Count 506 H Lymph % (Auto) Oliver % (Auto) 8.6 H Lymph # (Auto) Oliver # (Auto) 0.9 H Seg Neutrophils % Seg Neuts % (Manual) Lymphocytes % (Manual) Monocytes % (Manual) Basophils % (Manual) Seg Neutrophils # Seg Neutrophils # Man Lymphocytes # (Manual) Monocytes # (Manual) Eosinophils # (Manual) Basophils # (Manual) PT INR D-Dimer ABG pH POC ABG pCO2 POC ABG pO2 ABG pO2 ABG HCO3 ABG O2 Saturation ABG Base Excess ABG Hemoglobin ABG Oxyhemoglobin ABG Potassium ABG Glucose Oxyhemoglobin Carboxyhemoglobin Sodium Potassium Chloride Carbon Dioxide BUN Creatinine Glucose POC Glucose 121 H 107 H Calcium Ferritin Total Bilirubin Alkaline Phosphatase Lactate Dehydrogenase Total Creatine Kinase CK-MB (CK-2) Rel Index Troponin T C-Reactive Protein Total Protein Albumin Prealbumin LDL Cholesterol Direct HDL Cholesterol Arterial Blood Glucose Arterial Blood Ionized Calcium Urine WBC (Auto) 05/07/20 05/07/20 05/07/20 06:18 17:13 23:29 WBC RBC Hgb Hct MCV MCH RDW Plt Count Lymph % (Auto) Oliver % (Auto) Lymph # (Auto) Oliver # (Auto) Seg Neutrophils % Seg Neuts % (Manual) Lymphocytes % (Manual) Monocytes % (Manual) Basophils % (Manual) Seg Neutrophils # Seg Neutrophils # Man Lymphocytes # (Manual) Monocytes # (Manual) Eosinophils # (Manual) Basophils # (Manual) PT INR D-Dimer ABG pH POC ABG pCO2 POC ABG pO2 ABG pO2 ABG HCO3 ABG O2 Saturation ABG Base Excess ABG Hemoglobin ABG Oxyhemoglobin ABG Potassium ABG Glucose Oxyhemoglobin Carboxyhemoglobin Sodium Potassium Chloride Carbon Dioxide BUN Creatinine Glucose POC Glucose 121 H 122 H 114 H Calcium Ferritin Total Bilirubin Alkaline Phosphatase Lactate Dehydrogenase Total Creatine Kinase CK-MB (CK-2) Rel Index Troponin T C-Reactive Protein Total Protein Albumin Prealbumin LDL Cholesterol Direct HDL Cholesterol Arterial Blood Glucose Arterial Blood Ionized Calcium Urine WBC (Auto) 05/08/20 05/08/20 05/08/20 05:20 11:57 23:42 WBC RBC Hgb Hct MCV MCH RDW Plt Count Lymph % (Auto) [place] % (Auto) Lymph # (Auto) Oliver # (Auto) Seg Neutrophils % Seg Neuts % (Manual) Lymphocytes % (Manual) Monocytes % (Manual) Basophils % (Manual) Seg Neutrophils # Seg Neutrophils # Man Lymphocytes # (Manual) Monocytes # (Manual) Eosinophils # (Manual) Basophils # (Manual) PT INR D-Dimer ABG pH POC ABG pCO2 POC ABG pO2 ABG pO2 ABG HCO3 ABG O2 Saturation ABG Base Excess ABG Hemoglobin ABG Oxyhemoglobin ABG Potassium ABG Glucose Oxyhemoglobin Carboxyhemoglobin Sodium Potassium Chloride Carbon Dioxide BUN Creatinine Glucose POC Glucose 121 H 113 H 135 H Calcium Ferritin Total Bilirubin Alkaline Phosphatase Lactate Dehydrogenase Total Creatine Kinase CK-MB (CK-2) Rel Index Troponin T C-Reactive Protein Total Protein Albumin Prealbumin LDL Cholesterol Direct HDL Cholesterol Arterial Blood Glucose Arterial Blood Ionized Calcium Urine WBC (Auto) 05/09/20 05/09/20 05/09/20 05:31 11:11 16:06 WBC RBC Hgb Hct MCV MCH RDW Plt Count Lymph % (Auto) [place] % (Auto) Lymph # (Auto) Oliver # (Auto) Seg Neutrophils % Seg Neuts % (Manual) Lymphocytes % (Manual) Monocytes % (Manual) Basophils % (Manual) Seg Neutrophils # Seg Neutrophils # Man Lymphocytes # (Manual) Monocytes # (Manual) Eosinophils # (Manual) Basophils # (Manual) PT INR D-Dimer ABG pH POC ABG pCO2 POC ABG pO2 ABG pO2 ABG HCO3 ABG O2 Saturation ABG Base Excess ABG Hemoglobin ABG Oxyhemoglobin ABG Potassium ABG Glucose Oxyhemoglobin Carboxyhemoglobin Sodium 136 L Potassium Chloride 97.0 L Carbon Dioxide 34 H BUN Creatinine < 0.2 L Glucose 107 H POC Glucose 66 L 127 H Calcium Ferritin Total Bilirubin Alkaline Phosphatase Lactate Dehydrogenase Total Creatine Kinase CK-MB (CK-2) Rel Index Troponin T C-Reactive Protein Total Protein Albumin Prealbumin LDL Cholesterol Direct HDL Cholesterol Arterial Blood Glucose Arterial Blood Ionized Calcium Urine WBC (Auto) 05/09/20 05/10/20 05/10/20 23:19 04:59 11:28 WBC RBC Hgb Hct MCV MCH RDW Plt Count Lymph % (Auto) Oliver % (Auto) Lymph # (Auto) Oliver # (Auto) Seg Neutrophils % Seg Neuts % (Manual) Lymphocytes % (Manual) Monocytes % (Manual) Basophils % (Manual) Seg Neutrophils # Seg Neutrophils # Man Lymphocytes # (Manual) Monocytes # (Manual) Eosinophils # (Manual) Basophils # (Manual) PT INR D-Dimer ABG pH POC ABG pCO2 POC ABG pO2 ABG pO2 ABG HCO3 ABG O2 Saturation ABG Base Excess ABG Hemoglobin ABG Oxyhemoglobin ABG Potassium ABG Glucose Oxyhemoglobin Carboxyhemoglobin Sodium Potassium Chloride Carbon Dioxide BUN Creatinine Glucose POC Glucose 108 H 126 H 124 H Calcium Ferritin Total Bilirubin Alkaline Phosphatase Lactate Dehydrogenase Total Creatine Kinase CK-MB (CK-2) Rel Index Troponin T C-Reactive Protein Total Protein Albumin Prealbumin LDL Cholesterol Direct HDL Cholesterol Arterial Blood Glucose Arterial Blood Ionized Calcium Urine WBC (Auto) Allied health notes reviewed: nursing
[2020-05-10] MEDS: traMADol 50 MG TAB PO PRN (20:02)
[2020-05-10] MEDS: ZOLPIDEM 5 MG TAB PO PRN (22:37)
[2020-05-10] MEDS: SENNOSIDES 8.6 MG TAB PO SCH (22:38)
[2020-05-10] MEDS: ENOXAPARIN 40 MG/0.4 ML INJ SUB-Q SCH (22:41)
[2020-05-11] MEDS: ALPRAZolam 0.5 MG TAB PO PRN ×2 (06:49→18:21)
[2020-05-11] MEDS: diphenhydrAMINE 25 MG/10 ML ORAL LIQUID FEEDTUBE PRN ×2 (06:49→22:35)
--- NOTE | 2020-05-11 08:16 | XRay Report ---
CHEST 1 VIEW INDICATION: Follow up on pleural effusion.. COMPARISON: 05/02/2020 FINDINGS: Support devices: Tracheostomy remains in the same position. Heart: Within normal limits. Lungs/Pleura: Hazy opacity in the right infrahilar region has decreased by 25% since the previous exa m. I suspect this represents partial atelectasis in the right lower lobe and not pleural effusion. Th e right upper lung and left lung are clear. No pneumothorax. Additional findings: None. IMPRESSION: Mild interval improvement in the hazy opacity at the right lung base as described. I suspect this re presents an improving atelectasis over effusion. Signer Name: Mynor Lakhani Jr, MD Signed: 05/11/2020 8:12 AM Workstation Name: [id number]
[2020-05-11] MEDS: MORPHINE 2 MG/1 ML INJ IV PRN ×2 (10:11→18:21)
[2020-05-11] MEDS: METOPROLOL TARTRATE 25 MG TAB PO SCH ×2 (11:37→22:23)
[2020-05-11] MEDS: TAMSULOSIN 0.4 MG CAP PO SCH (11:37)
[2020-05-11] MEDS: SCOPOLAMINE TRANSDERMAL PATCH 72 HR TD SCH (11:37)
[2020-05-11] MEDS: LANSOPRAZOLE 30 MG SOLUTAB FEEDTUBE SCH (11:37)
[2020-05-11] MEDS: ASPIRIN EC 81 MG TAB PO SCH (11:37)
[2020-05-11] MEDS: BACLOFEN 10 MG TAB PO SCH ×2 (11:37→22:22)
[2020-05-11] MEDS: PREGABALIN 75 MG CAP PO SCH ×2 (11:37→22:22)
[2020-05-11] MEDS: GLYCOPYRROLATE 1 MG TAB PO SCH ×3 (11:38→21:05)
[2020-05-11] MEDS: DOCUSATE SODIUM 100 MG/10 ML ORAL LIQD FEEDTUBE SCH ×2 (11:38→22:20)
[2020-05-11] MEDS: MAGIC MOUTHWASH 30ML PO SCH ×3 (11:44→21:05)
[2020-05-11] MEDS: LIDOCAINE 5% 1 EACH PATCH TD SCH (11:44)
--- NOTE | 2020-05-11 11:44 | Progress Note ---
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 Respiratory Failure Severe Sepsis with Shock Bilateral Pneumonia (Possible aspiration) History of ALS on Trilogy Oropharyngeal Dysphagia PUI-COVID Acute toxic metabolic encephalopathy Elevated D-dimer Elevated troponin possibly type 2 ischemia - discharge planning still ongoing for home ventilator - remains ventilator dependent; refusing t-piece trials at time's and not tolerating when tried - continue care as below; - continue home meds re: chronic pain (Baclofen, Lyrica) - continue daily SBT's as tolerated; t-piece trial attempts as tolerated (PSV if fails) - repeat CXR prn +/- bronchoscopy for mucus plugging / large volume atelectasis - continue psychoactive meds for anxiolysis - continue Robinul & scopolamine for secretion control - prn electrolytes and optimize K+ & Mg 2+ for best respiratory muscle function - wound care per RN/WCN - wean supplemental oxygen for target O2 sat's > 90% acutely - bronchodilators with pulmonary hygiene per RT - VAP bundle addressed - continue lung protective strategies - continue bronchodilators with pulmonary hygiene per RT - wean per pulmonary driven protocols otherwise - sedation prn for target RASS 0 to -1 - s/p empiric antiinfectives per ID rec's (Rocephin and Zithromax) - s/p COVID-19 isolation (Airborne & Contact) - s/p Dexamethasone - enteral nutrition at goal rate as tolerated - accuchecks with glycemic control per SSI (While critically ill target blood glucose of 140-180 mg/dL; avoid hypoglycemia) - avoid nephrotoxins, renally dose all medications - avoid benzodiazepine's, reduce the possibility of delirium - prn analgesia per CPOT score - Maintenance of sleep-wake cycle, avoid delirium - aspiration precautions - G.I. & VTE prophylaxis - PT/OT/ROM exercises - mobility protocols for pressure ulcer prophylaxis - Monitor hemodynamics closely - continue other care per attending / other consultants - discharge planning ongoing concurrently .... Re-evaluate in am & prn CONDITION: CRITICAL PROGNOSIS: GUARDED CODE STATUS: FULL CODE The high probability of a clinically significant, sudden or life-threatening deterioration of the [respiratory, cardiovascular & neurologic] system(s) required my full and direct attention, intervention and personal management. The aggregate critical care time was [35] minutes without overlap. Time includes spent on; [x] Data Review and interpretation [x] Patient assessment and monitoring of vital signs [x] Documentation [x] Medication orders and management Subjective Date of service: 05/11/20 Principal diagnosis: Ac on Ch Hypercapnic & hypoxemic Resp Failure; Severe Sepsis; Jamar PNA; ALS Interval history: Patient is seen today for: Acute on Chronic Hypercapnic & hypoxemic Respiratory Failure; Severe Sepsis with Shock; Bilateral Pneumonia (Possible aspiration); History of ALS on Trilogy; PUI-COVID; Acute toxic metabolic encephalopathy Seen and examined at bedside; 24hour events reviewed; nursing and respiratory care staff consulted; no adverse overnight events reported to me; resting in bed; remains on MVS; tolerating SBT on PSV but tenuously and failing t-piece trials; No N/V/F/C Objective Vital Signs - 12hr 05/10/20 05/11/20 05/11/20 23:45 00:00 00:02 Temperature 97.5 F L Pulse Rate 108 H 99 H 99 H Respiratory 11 L Rate Blood Pressure 114/84 114/84 O2 Sat by Pulse 99 98 Oximetry 05/11/20 05/11/20 05/11/20 01:00 02:00 03:00 Temperature Pulse Rate 97 H 97 H 99 H Respiratory 18 12 19 Rate Blood Pressure 115/79 111/76 111/76 O2 Sat by Pulse Oximetry 05/11/20 05/11/20 05/11/20 04:00 04:48 05:00 Temperature 97.8 F Pulse Rate 103 H 108 H 106 H Respiratory 12 13 Rate Blood Pressure 120/80 120/80 125/89 O2 Sat by Pulse 96 98 Oximetry 05/11/20 05/11/20 05/11/20 05:05 06:00 07:43 Temperature Pulse Rate 106 H 113 H 112 H Respiratory 19 Rate Blood Pressure 119/88 132/93 O2 Sat by Pulse 96 97 Oximetry Constitutional: no acute distress, other (thin middle aged male with normal respiratory effort at rest on MVS) Eyes: non-icteric ENT: oropharynx moist, other (S/P Tracheostomy) Neck: supple, no lymphadenopathy, no JVD Effort: mildly labored Ascultation: Bilateral: diminished breath sounds, rhonchi (scant in bases) Percussion: Bilateral: not dull Cardiovascular: regular rate and rhythm, other (S1,S2, no murmurs) Gastrointestinal: normoactive bowel sounds, soft, non-tender, non-distended, other (+ distended but non tender suprapubis) Integumentary: normal, decubitus ulcer (sacral / gluteal) Extremities: no cyanosis, no edema, pulses normal, other (atrophic looking limbs) Neurologic: pupils equal and round, other (motor strength in extremities 1-2/5, awake, alert, mouths words to make needs known) Psychiatric: depressed CBC and BMP: 05/07/20 04:43 05/09/20 16:06 ABG, PT/INR, D-dimer: ABG ABG pH 7.371 (7.320-7.450) 03/08/20 12:34 POC ABG pCO2 63.1 mmHg (32.0-48.0) H 03/08/20 12:34 ABG pCO2 60.1 mm Hg 03/06/20 04:34 POC ABG pO2 90.5 mmHg (83-108) 03/08/20 12:34 ABG pO2 88.6 mm Hg (80.0-90.0) 03/06/20 04:34 POC ABG HCO3 35.7 03/08/20 12:34 ABG O2 Saturation 97.0 % (95.0-99.0) 03/06/20 04:34 PT/INR, D-dimer PT 15.6 Sec. (12.2-14.9) H 02/24/20 09:19 INR 1.21 (0.87-1.13) H 02/24/20 09:19 D-Dimer 1311.96 ng/mlDDU (0-234) H 02/24/20 09:19 Abnormal lab findings: Abnormal Labs 02/24/20 02/24/20 02/24/20 09:19 09:19 09:19 WBC 20.2 H RBC 5.05 H Hgb Hct MCV MCH RDW 15.3 H Plt Count Lymph % (Auto) [place] % (Auto) Lymph # (Auto) [place] # (Auto) Seg Neutrophils % Seg Neuts % (Manual) 86.0 H Lymphocytes % (Manual) 1.0 L Monocytes % (Manual) Basophils % (Manual) Seg Neutrophils # Seg Neutrophils # Man 17.4 H Lymphocytes # (Manual) 0.2 L Monocytes # (Manual) Eosinophils # (Manual) Basophils # (Manual) PT 15.6 H INR 1.21 H D-Dimer 1311.96 H ABG pH POC ABG pCO2 POC ABG pO2 ABG pO2 ABG HCO3 ABG O2 Saturation ABG Base Excess ABG Hemoglobin ABG Oxyhemoglobin ABG Potassium ABG Glucose Oxyhemoglobin Carboxyhemoglobin Sodium 135 L Potassium 3.2 L Chloride 92.2 L Carbon Dioxide BUN 6 L Creatinine < 0.2 L Glucose 124 H POC Glucose Calcium Ferritin Total Bilirubin 2.30 H Alkaline Phosphatase 132 H Lactate Dehydrogenase Total Creatine Kinase CK-MB (CK-2) Rel Index Troponin T 0.080 H C-Reactive Protein Total Protein Albumin 3.6 L Prealbumin LDL Cholesterol Direct 41 L HDL Cholesterol Arterial Blood Glucose Arterial Blood Ionized Calcium Urine WBC (Auto) 02/24/20 02/24/20 02/24/20 09:19 09:58 10:01 WBC RBC Hgb Hct MCV MCH RDW Plt Count Lymph % (Auto) [place] % (Auto) Lymph # (Auto) [place] # (Auto) Seg Neutrophils % Seg Neuts % (Manual) Lymphocytes % (Manual) Monocytes % (Manual) Basophils % (Manual) Seg Neutrophils # Seg Neutrophils # Man Lymphocytes # (Manual) Monocytes # (Manual) Eosinophils # (Manual) Basophils # (Manual) PT INR D-Dimer ABG pH 7.176 L* POC ABG pCO2 POC ABG pO2 ABG pO2 91.2 H ABG HCO3 ABG O2 Saturation ABG Base Excess -4.6 L ABG Hemoglobin ABG Oxyhemoglobin ABG Potassium ABG Glucose Oxyhemoglobin 92.6 L Carboxyhemoglobin Sodium Potassium Chloride Carbon Dioxide BUN Creatinine Glucose POC Glucose Calcium Ferritin 1715.0 H Total Bilirubin Alkaline Phosphatase Lactate Dehydrogenase 303 H Total Creatine Kinase CK-MB (CK-2) Rel Index Troponin T C-Reactive Protein 26.10 H Total Protein Albumin Prealbumin LDL Cholesterol Direct HDL Cholesterol Arterial Blood Glucose Arterial Blood Ionized Calcium Urine WBC (Auto) 02/24/20 02/24/20 02/24/20 11:52 13:45 19:35 WBC RBC Hgb Hct MCV MCH RDW Plt Count Lymph % (Auto) [place] % (Auto) Lymph # (Auto) [place] # (Auto) Seg Neutrophils % Seg Neuts % (Manual) Lymphocytes % (Manual) Monocytes % (Manual) Basophils % (Manual) Seg Neutrophils # Seg Neutrophils # Man Lymphocytes # (Manual) Monocytes # (Manual) Eosinophils # (Manual) Basophils # (Manual) PT INR D-Dimer ABG pH 7.051 L* 7.300 L POC ABG pCO2 POC ABG pO2 ABG pO2 94.7 H 75.1 L ABG HCO3 18.0 L ABG O2 Saturation 93.5 L ABG Base Excess -6.8 L -7.8 L ABG Hemoglobin 13.2 L 11.9 L ABG Oxyhemoglobin ABG Potassium ABG Glucose Oxyhemoglobin 91.0 L 92.7 L Carboxyhemoglobin Sodium Potassium Chloride Carbon Dioxide BUN Creatinine Glucose POC Glucose Calcium Ferritin Total Bilirubin Alkaline Phosphatase Lactate Dehydrogenase Total Creatine Kinase CK-MB (CK-2) Rel Index Troponin T 0.034 H D C-Reactive Protein Total Protein Albumin Prealbumin LDL Cholesterol Direct HDL Cholesterol Arterial Blood Glucose Arterial Blood Ionized Calcium Urine WBC (Auto) 02/25/20 02/25/20 02/25/20 04:00 04:00 12:26 WBC 22.9 H RBC Hgb Hct MCV 83 L MCH 27 L RDW Plt Count 468 H Lymph % (Auto) [place] % (Auto) Lymph # (Auto) [place] # (Auto) Seg Neutrophils % Seg Neuts % (Manual) 89.0 H Lymphocytes % (Manual) 7.0 L Monocytes % (Manual) Basophils % (Manual) Seg Neutrophils # Seg Neutrophils # Man 20.4 H Lymphocytes # (Manual) Monocytes # (Manual) Eosinophils # (Manual) Basophils # (Manual) PT INR D-Dimer ABG pH POC ABG pCO2 POC ABG pO2 ABG pO2 ABG HCO3 ABG O2 Saturation ABG Base Excess ABG Hemoglobin ABG Oxyhemoglobin ABG Potassium 2.6 L ABG Glucose 142 H Oxyhemoglobin Carboxyhemoglobin Sodium Potassium 3.2 L Chloride Carbon Dioxide 18 L BUN Creatinine 0.2 L Glucose 114 H POC Glucose Calcium Ferritin Total Bilirubin Alkaline Phosphatase Lactate Dehydrogenase Total Creatine Kinase CK-MB (CK-2) Rel Index Troponin T C-Reactive Protein Total Protein Albumin 3.5 L Prealbumin LDL Cholesterol Direct HDL Cholesterol Arterial Blood Glucose 142 H Arterial Blood Ionized Calcium Urine WBC (Auto) 02/26/20 02/26/20 02/26/20 15:58 17:00 23:43 WBC RBC Hgb Hct MCV MCH RDW Plt Count Lymph % (Auto) [place] % (Auto) Lymph # (Auto) [place] # (Auto) Seg Neutrophils % Seg Neuts % (Manual) Lymphocytes % (Manual) Monocytes % (Manual) Basophils % (Manual) Seg Neutrophils # Seg Neutrophils # Man Lymphocytes # (Manual) Monocytes # (Manual) Eosinophils # (Manual) Basophils # (Manual) PT INR D-Dimer ABG pH 7.502 H POC ABG pCO2 POC ABG pO2 213.6 H ABG pO2 ABG HCO3 ABG O2 Saturation ABG Base Excess ABG Hemoglobin ABG Oxyhemoglobin 99.2 H ABG Potassium 2.9 L ABG Glucose 160 H Oxyhemoglobin Carboxyhemoglobin 0.4 L Sodium Potassium Chloride Carbon Dioxide BUN Creatinine Glucose POC Glucose 189 H 120 H Calcium Ferritin Total Bilirubin Alkaline Phosphatase Lactate Dehydrogenase Total Creatine Kinase CK-MB (CK-2) Rel Index Troponin T C-Reactive Protein Total Protein Albumin Prealbumin LDL Cholesterol Direct HDL Cholesterol Arterial Blood Glucose 160 H Arterial Blood Ionized Calcium 4.5 L Urine WBC (Auto) 02/27/20 02/27/20 02/27/20 05:00 07:04 17:45 WBC RBC Hgb Hct MCV MCH RDW Plt Count Lymph % (Auto) [place] % (Auto) Lymph # (Auto) [place] # (Auto) Seg Neutrophils % Seg Neuts % (Manual) Lymphocytes % (Manual) Monocytes % (Manual) Basophils % (Manual) Seg Neutrophils # Seg Neutrophils # Man Lymphocytes # (Manual) Monocytes # (Manual) Eosinophils # (Manual) Basophils # (Manual) PT INR D-Dimer ABG pH 7.524 H POC ABG pCO2 POC ABG pO2 ABG pO2 ABG HCO3 ABG O2 Saturation ABG Base Excess ABG Hemoglobin ABG Oxyhemoglobin ABG Potassium 3.0 L ABG Glucose 143 H Oxyhemoglobin Carboxyhemoglobin Sodium Potassium Chloride Carbon Dioxide BUN Creatinine Glucose POC Glucose 154 H 175 H Calcium Ferritin Total Bilirubin Alkaline Phosphatase Lactate Dehydrogenase Total Creatine Kinase CK-MB (CK-2) Rel Index Troponin T C-Reactive Protein Total Protein Albumin Prealbumin LDL Cholesterol Direct HDL Cholesterol Arterial Blood Glucose 143 H Arterial Blood Ionized Calcium Urine WBC (Auto) 02/27/20 02/28/20 02/28/20 Unknown 00:21 04:15 WBC 18.7 H RBC Hgb Hct MCV MCH RDW Plt Count Lymph % (Auto) 8.7 L [place] % (Auto) Lymph # (Auto) [place] # (Auto) 1.2 H Seg Neutrophils % 84.6 H Seg Neuts % (Manual) Lymphocytes % (Manual) Monocytes % (Manual) Basophils % (Manual) Seg Neutrophils # 15.9 H Seg Neutrophils # Man Lymphocytes # (Manual) Monocytes # (Manual) Eosinophils # (Manual) Basophils # (Manual) PT INR D-Dimer ABG pH POC ABG pCO2 POC ABG pO2 ABG pO2 ABG HCO3 ABG O2 Saturation ABG Base Excess ABG Hemoglobin ABG Oxyhemoglobin ABG Potassium ABG Glucose Oxyhemoglobin Carboxyhemoglobin Sodium Potassium 2.9 L* Chloride Carbon Dioxide 33 H D BUN Creatinine < 0.2 L Glucose 157 H POC Glucose 134 H Calcium Ferritin Total Bilirubin Alkaline Phosphatase Lactate Dehydrogenase Total Creatine Kinase CK-MB (CK-2) Rel Index Troponin T C-Reactive Protein Total Protein Albumin Prealbumin LDL Cholesterol Direct HDL Cholesterol Arterial Blood Glucose Arterial Blood Ionized Calcium Urine WBC (Auto) 02/28/20 02/28/20 02/28/20 04:15 05:16 05:39 WBC RBC Hgb Hct MCV MCH RDW Plt Count Lymph % (Auto) [place] % (Auto) Lymph # (Auto) [place] # (Auto) Seg Neutrophils % Seg Neuts % (Manual) Lymphocytes % (Manual) Monocytes % (Manual) Basophils % (Manual) Seg Neutrophils # Seg Neutrophils # Man Lymphocytes # (Manual) Monocytes # (Manual) Eosinophils # (Manual) Basophils # (Manual) PT INR D-Dimer ABG pH POC ABG pCO2 POC ABG pO2 ABG pO2 142.9 H ABG HCO3 34.1 H ABG O2 Saturation ABG Base Excess 8.3 H ABG Hemoglobin ABG Oxyhemoglobin ABG Potassium ABG Glucose Oxyhemoglobin Carboxyhemoglobin Sodium 151 H Potassium Chloride Carbon Dioxide 32 H BUN Creatinine 0.2 L Glucose 167 H POC Glucose 138 H Calcium Ferritin Total Bilirubin Alkaline Phosphatase Lactate Dehydrogenase Total Creatine Kinase CK-MB (CK-2) Rel Index Troponin T C-Reactive Protein Total Protein Albumin Prealbumin LDL Cholesterol Direct HDL Cholesterol Arterial Blood Glucose Arterial Blood Ionized Calcium Urine WBC (Auto) 02/28/20 02/28/20 02/28/20 11:05 11:33 12:54 WBC RBC Hgb Hct MCV MCH RDW Plt Count Lymph % (Auto) [place] % (Auto) Lymph # (Auto) [place] # (Auto) Seg Neutrophils % Seg Neuts % (Manual) Lymphocytes % (Manual) Monocytes % (Manual) Basophils % (Manual) Seg Neutrophils # Seg Neutrophils # Man Lymphocytes # (Manual) Monocytes # (Manual) Eosinophils # (Manual) Basophils # (Manual) PT INR D-Dimer ABG pH POC ABG pCO2 POC ABG pO2 ABG pO2 ABG HCO3 ABG O2 Saturation ABG Base Excess ABG Hemoglobin ABG Oxyhemoglobin ABG Potassium ABG Glucose Oxyhemoglobin Carboxyhemoglobin Sodium Potassium Chloride Carbon Dioxide BUN Creatinine Glucose POC Glucose 160 H Calcium Ferritin Total Bilirubin Alkaline Phosphatase Lactate Dehydrogenase Total Creatine Kinase CK-MB (CK-2) Rel Index Troponin T C-Reactive Protein 4.70 H Total Protein Albumin Prealbumin 0.090 L LDL Cholesterol Direct HDL Cholesterol Arterial Blood Glucose Arterial Blood Ionized Calcium Urine WBC (Auto) 02/28/20 02/29/20 02/29/20 17:34 00:44 04:05 WBC 19.6 H RBC Hgb Hct MCV MCH 27 L RDW 15.4 H Plt Count Lymph % (Auto) [place] % (Auto) Lymph # (Auto) [place] # (Auto) Seg Neutrophils % Seg Neuts % (Manual) 86.0 H Lymphocytes % (Manual) 7.0 L Monocytes % (Manual) Basophils % (Manual) Seg Neutrophils # Seg Neutrophils # Man 16.9 H Lymphocytes # (Manual) Monocytes # (Manual) 1.2 H Eosinophils # (Manual) Basophils # (Manual) PT INR D-Dimer ABG pH POC ABG pCO2 POC ABG pO2 ABG pO2 ABG HCO3 ABG O2 Saturation ABG Base Excess ABG Hemoglobin ABG Oxyhemoglobin ABG Potassium ABG Glucose Oxyhemoglobin Carboxyhemoglobin Sodium Potassium Chloride Carbon Dioxide BUN Creatinine Glucose POC Glucose 136 H 156 H Calcium Ferritin Total Bilirubin Alkaline Phosphatase Lactate Dehydrogenase Total Creatine Kinase CK-MB (CK-2) Rel Index Troponin T C-Reactive Protein Total Protein Albumin Prealbumin LDL Cholesterol Direct HDL Cholesterol Arterial Blood Glucose Arterial Blood Ionized Calcium Urine WBC (Auto) 02/29/20 02/29/20 02/29/20 04:05 05:14 05:33 WBC RBC Hgb Hct MCV MCH RDW Plt Count Lymph % (Auto) [place] % (Auto) Lymph # (Auto) [place] # (Auto) Seg Neutrophils % Seg Neuts % (Manual) Lymphocytes % (Manual) Monocytes % (Manual) Basophils % (Manual) Seg Neutrophils # Seg Neutrophils # Man Lymphocytes # (Manual) Monocytes # (Manual) Eosinophils # (Manual) Basophils # (Manual) PT INR D-Dimer ABG pH POC ABG pCO2 54.3 H POC ABG pO2 124.8 H ABG pO2 ABG HCO3 ABG O2 Saturation ABG Base Excess ABG Hemoglobin ABG Oxyhemoglobin ABG Potassium ABG Glucose 185 H Oxyhemoglobin Carboxyhemoglobin Sodium 148 H Potassium Chloride Carbon Dioxide 33 H BUN Creatinine < 0.2 L Glucose 173 H POC Glucose 152 H Calcium Ferritin Total Bilirubin Alkaline Phosphatase Lactate Dehydrogenase Total Creatine Kinase CK-MB (CK-2) Rel Index Troponin T C-Reactive Protein Total Protein Albumin Prealbumin LDL Cholesterol Direct HDL Cholesterol Arterial Blood Glucose 185 H Arterial Blood Ionized Calcium Urine WBC (Auto) 03/01/20 03/01/20 03/01/20 00:00 03:45 04:33 WBC 23.1 H RBC Hgb Hct MCV MCH 27 L RDW 15.3 H Plt Count Lymph % (Auto) [place] % (Auto) Lymph # (Auto) [place] # (Auto) Seg Neutrophils % Seg Neuts % (Manual) 92.0 H Lymphocytes % (Manual) 6.0 L Monocytes % (Manual) Basophils % (Manual) Seg Neutrophils # Seg Neutrophils # Man 21.3 H Lymphocytes # (Manual) Monocytes # (Manual) Eosinophils # (Manual) 0.5 H Basophils # (Manual) PT INR D-Dimer ABG pH 7.492 H POC ABG pCO2 POC ABG pO2 ABG pO2 157.1 H ABG HCO3 32.3 H ABG O2 Saturation ABG Base Excess 8.1 H ABG Hemoglobin 13.2 L ABG Oxyhemoglobin ABG Potassium ABG Glucose Oxyhemoglobin Carboxyhemoglobin Sodium Potassium Chloride Carbon Dioxide BUN Creatinine Glucose POC Glucose 109 H Calcium Ferritin Total Bilirubin Alkaline Phosphatase Lactate Dehydrogenase Total Creatine Kinase CK-MB (CK-2) Rel Index Troponin T C-Reactive Protein Total Protein Albumin Prealbumin LDL Cholesterol Direct HDL Cholesterol Arterial Blood Glucose Arterial Blood Ionized Calcium Urine WBC (Auto) 03/01/20 03/01/20 03/01/20 04:33 05:29 12:32 WBC RBC Hgb Hct MCV MCH RDW Plt Count Lymph % (Auto) [place] % (Auto) Lymph # (Auto) [place] # (Auto) Seg Neutrophils % Seg Neuts % (Manual) Lymphocytes % (Manual) Monocytes % (Manual) Basophils % (Manual) Seg Neutrophils # Seg Neutrophils # Man Lymphocytes # (Manual) Monocytes # (Manual) Eosinophils # (Manual) Basophils # (Manual) PT INR D-Dimer ABG pH POC ABG pCO2 POC ABG pO2 ABG pO2 ABG HCO3 ABG O2 Saturation ABG Base Excess ABG Hemoglobin ABG Oxyhemoglobin ABG Potassium ABG Glucose Oxyhemoglobin Carboxyhemoglobin Sodium 146 H Potassium Chloride Carbon Dioxide 32 H BUN Creatinine < 0.2 L Glucose 120 H POC Glucose 120 H 128 H Calcium Ferritin Total Bilirubin Alkaline Phosphatase Lactate Dehydrogenase Total Creatine Kinase CK-MB (CK-2) Rel Index Troponin T C-Reactive Protein Total Protein Albumin Prealbumin LDL Cholesterol Direct HDL Cholesterol Arterial Blood Glucose Arterial Blood Ionized Calcium Urine WBC (Auto) 03/01/20 03/01/20 03/02/20 17:38 23:46 06:13 WBC RBC Hgb Hct MCV MCH RDW Plt Count Lymph % (Auto) [place] % (Auto) Lymph # (Auto) [place] # (Auto) Seg Neutrophils % Seg Neuts % (Manual) Lymphocytes % (Manual) Monocytes % (Manual) Basophils % (Manual) Seg Neutrophils # Seg Neutrophils # Man Lymphocytes # (Manual) Monocytes # (Manual) Eosinophils # (Manual) Basophils # (Manual) PT INR D-Dimer ABG pH POC ABG pCO2 POC ABG pO2 ABG pO2 ABG HCO3 ABG O2 Saturation ABG Base Excess ABG Hemoglobin ABG Oxyhemoglobin ABG Potassium ABG Glucose Oxyhemoglobin Carboxyhemoglobin Sodium Potassium Chloride Carbon Dioxide BUN Creatinine Glucose POC Glucose 114 H 121 H 120 H Calcium Ferritin Total Bilirubin Alkaline Phosphatase Lactate Dehydrogenase Total Creatine Kinase CK-MB (CK-2) Rel Index Troponin T C-Reactive Protein Total Protein Albumin Prealbumin LDL Cholesterol Direct HDL Cholesterol Arterial Blood Glucose Arterial Blood Ionized Calcium Urine WBC (Auto) 03/02/20 03/02/20 03/03/20 09:47 09:47 10:21 WBC 23.6 H RBC Hgb Hct MCV MCH RDW 15.3 H Plt Count 494 H Lymph % (Auto) [place] % (Auto) Lymph # (Auto) [place] # (Auto) Seg Neutrophils % Seg Neuts % (Manual) 85.0 H Lymphocytes % (Manual) 6.0 L Monocytes % (Manual) Basophils % (Manual) Seg Neutrophils # Seg Neutrophils # Man 20.1 H Lymphocytes # (Manual) Monocytes # (Manual) 1.7 H Eosinophils # (Manual) Basophils # (Manual) PT INR D-Dimer ABG pH POC ABG pCO2 POC ABG pO2 ABG pO2 ABG HCO3 ABG O2 Saturation ABG Base Excess ABG Hemoglobin ABG Oxyhemoglobin ABG Potassium 3.3 L ABG Glucose 158 H Oxyhemoglobin Carboxyhemoglobin Sodium Potassium Chloride Carbon Dioxide BUN Creatinine < 0.2 L Glucose 177 H POC Glucose Calcium Ferritin Total Bilirubin Alkaline Phosphatase Lactate Dehydrogenase Total Creatine Kinase CK-MB (CK-2) Rel Index Troponin T C-Reactive Protein Total Protein Albumin Prealbumin LDL Cholesterol Direct HDL Cholesterol Arterial Blood Glucose 158 H Arterial Blood Ionized Calcium Urine WBC (Auto) 03/03/20 03/04/20 03/04/20 21:30 00:00 12:23 WBC RBC Hgb Hct MCV MCH RDW Plt Count Lymph % (Auto) [place] % (Auto) Lymph # (Auto) [place] # (Auto) Seg Neutrophils % Seg Neuts % (Manual) Lymphocytes % (Manual) Monocytes % (Manual) Basophils % (Manual) Seg Neutrophils # Seg Neutrophils # Man Lymphocytes # (Manual) Monocytes # (Manual) Eosinophils # (Manual) Basophils # (Manual) PT INR D-Dimer ABG pH 7.328 L POC ABG pCO2 POC ABG pO2 ABG pO2 68.4 L ABG HCO3 35.0 H ABG O2 Saturation 93.9 L ABG Base Excess 6.8 H ABG Hemoglobin 12.7 L ABG Oxyhemoglobin ABG Potassium ABG Glucose Oxyhemoglobin 91.9 L Carboxyhemoglobin Sodium Potassium Chloride Carbon Dioxide BUN Creatinine Glucose POC Glucose 187 H 163 H Calcium Ferritin Total Bilirubin Alkaline Phosphatase Lactate Dehydrogenase Total Creatine Kinase CK-MB (CK-2) Rel Index Troponin T C-Reactive Protein Total Protein Albumin Prealbumin LDL Cholesterol Direct HDL Cholesterol Arterial Blood Glucose Arterial Blood Ionized Calcium Urine WBC (Auto) 03/04/20 03/04/20 03/05/20 18:15 21:30 06:02 WBC RBC Hgb Hct MCV MCH RDW Plt Count Lymph % (Auto) [place] % (Auto) Lymph # (Auto) [place] # (Auto) Seg Neutrophils % Seg Neuts % (Manual) Lymphocytes % (Manual) Monocytes % (Manual) Basophils % (Manual) Seg Neutrophils # Seg Neutrophils # Man Lymphocytes # (Manual) Monocytes # (Manual) Eosinophils # (Manual) Basophils # (Manual) PT INR D-Dimer ABG pH 7.297 L POC ABG pCO2 POC ABG pO2 ABG pO2 ABG HCO3 41.0 H ABG O2 Saturation ABG Base Excess 11.0 H ABG Hemoglobin 13.1 L ABG Oxyhemoglobin ABG Potassium ABG Glucose Oxyhemoglobin 94.5 L Carboxyhemoglobin Sodium Potassium Chloride Carbon Dioxide BUN Creatinine Glucose POC Glucose 192 H 127 H Calcium Ferritin Total Bilirubin Alkaline Phosphatase Lactate Dehydrogenase Total Creatine Kinase CK-MB (CK-2) Rel Index Troponin T C-Reactive Protein Total Protein Albumin Prealbumin LDL Cholesterol Direct HDL Cholesterol Arterial Blood Glucose Arterial Blood Ionized Calcium Urine WBC (Auto) 03/05/20 03/05/20 03/06/20 12:09 16:42 00:24 WBC RBC Hgb Hct MCV MCH RDW Plt Count Lymph % (Auto) [place] % (Auto) Lymph # (Auto) [place] # (Auto) Seg Neutrophils % Seg Neuts % (Manual) Lymphocytes % (Manual) Monocytes % (Manual) Basophils % (Manual) Seg Neutrophils # Seg Neutrophils # Man Lymphocytes # (Manual) Monocytes # (Manual) Eosinophils # (Manual) Basophils # (Manual) PT INR D-Dimer ABG pH POC ABG pCO2 POC ABG pO2 ABG pO2 ABG HCO3 ABG O2 Saturation ABG Base Excess ABG Hemoglobin ABG Oxyhemoglobin ABG Potassium ABG Glucose Oxyhemoglobin Carboxyhemoglobin Sodium Potassium Chloride Carbon Dioxide BUN Creatinine Glucose POC Glucose 147 H 114 H 134 H Calcium Ferritin Total Bilirubin Alkaline Phosphatase Lactate Dehydrogenase Total Creatine Kinase CK-MB (CK-2) Rel Index Troponin T C-Reactive Protein Total Protein Albumin Prealbumin LDL Cholesterol Direct HDL Cholesterol Arterial Blood Glucose Arterial Blood Ionized Calcium Urine WBC (Auto) 03/06/20 03/06/20 03/06/20 04:34 05:53 06:08 WBC 25.4 H RBC Hgb 10.5 L Hct 32.7 L MCV MCH 27 L RDW 15.3 H Plt Count 634 H Lymph % (Auto) [place] % (Auto) Lymph # (Auto) [place] # (Auto) Seg Neutrophils % Seg Neuts % (Manual) 88.0 H Lymphocytes % (Manual) 2.0 L Monocytes % (Manual) 8.0 H Basophils % (Manual) Seg Neutrophils # Seg Neutrophils # Man 22.4 H Lymphocytes # (Manual) 0.5 L Monocytes # (Manual) 2.0 H Eosinophils # (Manual) Basophils # (Manual) PT INR D-Dimer ABG pH POC ABG pCO2 POC ABG pO2 ABG pO2 ABG HCO3 37.9 H ABG O2 Saturation ABG Base Excess 11.4 H ABG Hemoglobin 10.6 L ABG Oxyhemoglobin ABG Potassium ABG Glucose Oxyhemoglobin 94.7 L Carboxyhemoglobin Sodium Potassium Chloride Carbon Dioxide BUN Creatinine Glucose POC Glucose 135 H Calcium Ferritin Total Bilirubin Alkaline Phosphatase Lactate Dehydrogenase Total Creatine Kinase CK-MB (CK-2) Rel Index Troponin T C-Reactive Protein Total Protein Albumin Prealbumin LDL Cholesterol Direct HDL Cholesterol Arterial Blood Glucose Arterial Blood Ionized Calcium Urine WBC (Auto) 03/06/20 03/06/20 03/06/20 06:08 12:19 19:10 WBC RBC Hgb Hct MCV MCH RDW Plt Count Lymph % (Auto) [place] % (Auto) Lymph # (Auto) [place] # (Auto) Seg Neutrophils % Seg Neuts % (Manual) Lymphocytes % (Manual) Monocytes % (Manual) Basophils % (Manual) Seg Neutrophils # Seg Neutrophils # Man Lymphocytes # (Manual) Monocytes # (Manual) Eosinophils # (Manual) Basophils # (Manual) PT INR D-Dimer ABG pH POC ABG pCO2 POC ABG pO2 ABG pO2 ABG HCO3 ABG O2 Saturation ABG Base Excess ABG Hemoglobin ABG Oxyhemoglobin ABG Potassium ABG Glucose Oxyhemoglobin Carboxyhemoglobin Sodium 150 H D Potassium Chloride Carbon Dioxide 39 H D BUN 23 H Creatinine < 0.2 L Glucose 144 H POC Glucose 169 H 152 H Calcium Ferritin Total Bilirubin Alkaline Phosphatase Lactate Dehydrogenase Total Creatine Kinase CK-MB (CK-2) Rel Index Troponin T C-Reactive Protein Total Protein Albumin 3.3 L Prealbumin LDL Cholesterol Direct HDL Cholesterol Arterial Blood Glucose Arterial Blood Ionized Calcium Urine WBC (Auto) 03/06/20 03/07/20 03/07/20 23:58 04:25 04:25 WBC 22.1 H RBC Hgb 10.9 L Hct 32.9 L MCV MCH RDW 15.5 H Plt Count 739 H Lymph % (Auto) 7.8 L [place] % (Auto) Lymph # (Auto) [place] # (Auto) 1.3 H Seg Neutrophils % 85.5 H Seg Neuts % (Manual) Lymphocytes % (Manual) Monocytes % (Manual) Basophils % (Manual) Seg Neutrophils # 18.9 H Seg Neutrophils # Man Lymphocytes # (Manual) Monocytes # (Manual) Eosinophils # (Manual) Basophils # (Manual) PT INR D-Dimer ABG pH POC ABG pCO2 POC ABG pO2 ABG pO2 ABG HCO3 ABG O2 Saturation ABG Base Excess ABG Hemoglobin ABG Oxyhemoglobin ABG Potassium ABG Glucose Oxyhemoglobin Carboxyhemoglobin Sodium 146 H Potassium Chloride Carbon Dioxide 37 H BUN Creatinine < 0.2 L Glucose 118 H POC Glucose 111 H Calcium Ferritin Total Bilirubin Alkaline Phosphatase Lactate Dehydrogenase Total Creatine Kinase CK-MB (CK-2) Rel Index Troponin T C-Reactive Protein Total Protein Albumin 3.7 L Prealbumin LDL Cholesterol Direct HDL Cholesterol Arterial Blood Glucose Arterial Blood Ionized Calcium Urine WBC (Auto) 03/07/20 03/07/20 03/07/20 05:20 17:45 23:32 WBC RBC Hgb Hct MCV MCH RDW Plt Count Lymph % (Auto) [place] % (Auto) Lymph # (Auto) [place] # (Auto) Seg Neutrophils % Seg Neuts % (Manual) Lymphocytes % (Manual) Monocytes % (Manual) Basophils % (Manual) Seg Neutrophils # Seg Neutrophils # Man Lymphocytes # (Manual) Monocytes # (Manual) Eosinophils # (Manual) Basophils # (Manual) PT INR D-Dimer ABG pH POC ABG pCO2 POC ABG pO2 ABG pO2 ABG HCO3 ABG O2 Saturation ABG Base Excess ABG Hemoglobin ABG Oxyhemoglobin ABG Potassium ABG Glucose Oxyhemoglobin Carboxyhemoglobin Sodium Potassium Chloride Carbon Dioxide BUN Creatinine Glucose POC Glucose 113 H 124 H 210 H Calcium Ferritin Total Bilirubin Alkaline Phosphatase Lactate Dehydrogenase Total Creatine Kinase CK-MB (CK-2) Rel Index Troponin T C-Reactive Protein Total Protein Albumin Prealbumin LDL Cholesterol Direct HDL Cholesterol Arterial Blood Glucose Arterial Blood Ionized Calcium Urine WBC (Auto) 03/08/20 03/08/20 03/08/20 05:35 06:43 06:43 WBC 28.9 H RBC 3.53 L Hgb 9.7 L Hct 30.3 L MCV MCH RDW 15.6 H Plt Count 578 H Lymph % (Auto) [place] % (Auto) Lymph # (Auto) [place] # (Auto) Seg Neutrophils % Seg Neuts % (Manual) 93.0 H Lymphocytes % (Manual) 4.0 L Monocytes % (Manual) Basophils % (Manual) Seg Neutrophils # Seg Neutrophils # Man 26.9 H Lymphocytes # (Manual) Monocytes # (Manual) Eosinophils # (Manual) Basophils # (Manual) PT INR D-Dimer ABG pH POC ABG pCO2 POC ABG pO2 ABG pO2 ABG HCO3 ABG O2 Saturation ABG Base Excess ABG Hemoglobin ABG Oxyhemoglobin ABG Potassium ABG Glucose Oxyhemoglobin Carboxyhemoglobin Sodium 146 H Potassium Chloride Carbon Dioxide 35 H BUN 34 H Creatinine 0.3 L D Glucose 125 H POC Glucose 147 H Calcium Ferritin Total Bilirubin Alkaline Phosphatase Lactate Dehydrogenase Total Creatine Kinase CK-MB (CK-2) Rel Index Troponin T C-Reactive Protein Total Protein 5.9 L Albumin 3.2 L Prealbumin LDL Cholesterol Direct HDL Cholesterol Arterial Blood Glucose Arterial Blood Ionized Calcium Urine WBC (Auto) 03/08/20 03/08/20 03/08/20 08:57 11:14 12:34 WBC RBC Hgb Hct MCV MCH RDW Plt Count Lymph % (Auto) [place] % (Auto) Lymph # (Auto) [place] # (Auto) Seg Neutrophils % Seg Neuts % (Manual) Lymphocytes % (Manual) Monocytes % (Manual) Basophils % (Manual) Seg Neutrophils # Seg Neutrophils # Man Lymphocytes # (Manual) Monocytes # (Manual) Eosinophils # (Manual) Basophils # (Manual) PT INR D-Dimer ABG pH POC ABG pCO2 63.1 H POC ABG pO2 ABG pO2 ABG HCO3 ABG O2 Saturation ABG Base Excess ABG Hemoglobin 10.9 L ABG Oxyhemoglobin ABG Potassium ABG Glucose 176 H Oxyhemoglobin Carboxyhemoglobin Sodium Potassium Chloride Carbon Dioxide BUN Creatinine Glucose POC Glucose 171 H Calcium Ferritin Total Bilirubin Alkaline Phosphatase Lactate Dehydrogenase Total Creatine Kinase CK-MB (CK-2) Rel Index Troponin T C-Reactive Protein Total Protein Albumin Prealbumin LDL Cholesterol Direct HDL Cholesterol Arterial Blood Glucose 176 H Arterial Blood Ionized Calcium 4.5 L Urine WBC (Auto) 10.0 H 03/08/20 03/08/20 03/09/20 18:02 23:43 05:49 WBC RBC Hgb Hct MCV MCH RDW Plt Count Lymph % (Auto) [place] % (Auto) Lymph # (Auto) [place] # (Auto) Seg Neutrophils % Seg Neuts % (Manual) Lymphocytes % (Manual) Monocytes % (Manual) Basophils % (Manual) Seg Neutrophils # Seg Neutrophils # Man Lymphocytes # (Manual) Monocytes # (Manual) Eosinophils # (Manual) Basophils # (Manual) PT INR D-Dimer ABG pH POC ABG pCO2 POC ABG pO2 ABG pO2 ABG HCO3 ABG O2 Saturation ABG Base Excess ABG Hemoglobin ABG Oxyhemoglobin ABG Potassium ABG Glucose Oxyhemoglobin Carboxyhemoglobin Sodium Potassium Chloride Carbon Dioxide BUN Creatinine Glucose POC Glucose 157 H 134 H 163 H Calcium Ferritin Total Bilirubin Alkaline Phosphatase Lactate Dehydrogenase Total Creatine Kinase CK-MB (CK-2) Rel Index Troponin T C-Reactive Protein Total Protein Albumin Prealbumin LDL Cholesterol Direct HDL Cholesterol Arterial Blood Glucose Arterial Blood Ionized Calcium Urine WBC (Auto) 03/09/20 03/09/20 03/09/20 08:35 08:35 12:11 WBC 23.4 H RBC 3.36 L Hgb 9.3 L Hct 28.8 L MCV MCH RDW 15.9 H Plt Count 521 H Lymph % (Auto) [place] % (Auto) Lymph # (Auto) [place] # (Auto) Seg Neutrophils % Seg Neuts % (Manual) 87.0 H Lymphocytes % (Manual) 4.0 L Monocytes % (Manual) 9.0 H Basophils % (Manual) Seg Neutrophils # Seg Neutrophils # Man 20.4 H Lymphocytes # (Manual) 0.9 L Monocytes # (Manual) 2.1 H Eosinophils # (Manual) Basophils # (Manual) PT INR D-Dimer ABG pH POC ABG pCO2 POC ABG pO2 ABG pO2 ABG HCO3 ABG O2 Saturation ABG Base Excess ABG Hemoglobin ABG Oxyhemoglobin ABG Potassium ABG Glucose Oxyhemoglobin Carboxyhemoglobin Sodium 147 H Potassium Chloride Carbon Dioxide 37 H BUN 63 H Creatinine Glucose 154 H POC Glucose 128 H Calcium Ferritin Total Bilirubin Alkaline Phosphatase Lactate Dehydrogenase Total Creatine Kinase CK-MB (CK-2) Rel Index Troponin T C-Reactive Protein Total Protein Albumin Prealbumin LDL Cholesterol Direct HDL Cholesterol Arterial Blood Glucose Arterial Blood Ionized Calcium Urine WBC (Auto) 03/09/20 03/10/20 03/10/20 17:51 00:25 05:41 WBC RBC Hgb Hct MCV MCH RDW Plt Count Lymph % (Auto) [place] % (Auto) Lymph # (Auto) [place] # (Auto) Seg Neutrophils % Seg Neuts % (Manual) Lymphocytes % (Manual) Monocytes % (Manual) Basophils % (Manual) Seg Neutrophils # Seg Neutrophils # Man Lymphocytes # (Manual) Monocytes # (Manual) Eosinophils # (Manual) Basophils # (Manual) PT INR D-Dimer ABG pH POC ABG pCO2 POC ABG pO2 ABG pO2 ABG HCO3 ABG O2 Saturation ABG Base Excess ABG Hemoglobin ABG Oxyhemoglobin ABG Potassium ABG Glucose Oxyhemoglobin Carboxyhemoglobin Sodium Potassium Chloride Carbon Dioxide BUN Creatinine Glucose POC Glucose 127 H 128 H 153 H Calcium Ferritin Total Bilirubin Alkaline Phosphatase Lactate Dehydrogenase Total Creatine Kinase CK-MB (CK-2) Rel Index Troponin T C-Reactive Protein Total Protein Albumin Prealbumin LDL Cholesterol Direct HDL Cholesterol Arterial Blood Glucose Arterial Blood Ionized Calcium Urine WBC (Auto) 03/10/20 03/10/20 03/10/20 06:14 06:14 12:02 WBC 18.3 H RBC 3.45 L Hgb 9.5 L Hct 29.5 L MCV MCH RDW 16.1 H Plt Count 494 H Lymph % (Auto) [place] % (Auto) Lymph # (Auto) [place] # (Auto) Seg Neutrophils % Seg Neuts % (Manual) 95.0 H Lymphocytes % (Manual) 1.0 L Monocytes % (Manual) Basophils % (Manual) Seg Neutrophils # Seg Neutrophils # Man 17.4 H Lymphocytes # (Manual) 0.2 L Monocytes # (Manual) Eosinophils # (Manual) Basophils # (Manual) PT INR D-Dimer ABG pH POC ABG pCO2 POC ABG pO2 ABG pO2 ABG HCO3 ABG O2 Saturation ABG Base Excess ABG Hemoglobin ABG Oxyhemoglobin ABG Potassium ABG Glucose Oxyhemoglobin Carboxyhemoglobin Sodium 149 H Potassium Chloride Carbon Dioxide 35 H BUN 34 H Creatinine 0.2 L D Glucose 177 H POC Glucose 151 H Calcium Ferritin Total Bilirubin Alkaline Phosphatase Lactate Dehydrogenase Total Creatine Kinase CK-MB (CK-2) Rel Index Troponin T C-Reactive Protein Total Protein Albumin Prealbumin LDL Cholesterol Direct HDL Cholesterol Arterial Blood Glucose Arterial Blood Ionized Calcium Urine WBC (Auto) 03/10/20 03/10/20 03/11/20 17:41 23:53 05:02 WBC RBC Hgb Hct MCV MCH RDW Plt Count Lymph % (Auto) [place] % (Auto) Lymph # (Auto) [place] # (Auto) Seg Neutrophils % Seg Neuts % (Manual) Lymphocytes % (Manual) Monocytes % (Manual) Basophils % (Manual) Seg Neutrophils # Seg Neutrophils # Man Lymphocytes # (Manual) Monocytes # (Manual) Eosinophils # (Manual) Basophils # (Manual) PT INR D-Dimer ABG pH POC ABG pCO2 POC ABG pO2 ABG pO2 ABG HCO3 ABG O2 Saturation ABG Base Excess ABG Hemoglobin ABG Oxyhemoglobin ABG Potassium ABG Glucose Oxyhemoglobin Carboxyhemoglobin Sodium Potassium Chloride Carbon Dioxide BUN Creatinine Glucose POC Glucose 168 H 142 H 146 H Calcium Ferritin Total Bilirubin Alkaline Phosphatase Lactate Dehydrogenase Total Creatine Kinase CK-MB (CK-2) Rel Index Troponin T C-Reactive Protein Total Protein Albumin Prealbumin LDL Cholesterol Direct HDL Cholesterol Arterial Blood Glucose Arterial Blood Ionized Calcium Urine WBC (Auto) 03/11/20 03/11/20 03/11/20 11:30 14:01 14:01 WBC 19.7 H RBC 3.04 L Hgb 8.7 L Hct 25.8 L MCV MCH RDW 15.6 H Plt Count Lymph % (Auto) [place] % (Auto) Lymph # (Auto) [place] # (Auto) Seg Neutrophils % Seg Neuts % (Manual) Lymphocytes % (Manual) Monocytes % (Manual) Basophils % (Manual) Seg Neutrophils # Seg Neutrophils # Man Lymphocytes # (Manual) Monocytes # (Manual) Eosinophils # (Manual) Basophils # (Manual) PT INR D-Dimer ABG pH POC ABG pCO2 POC ABG pO2 ABG pO2 ABG HCO3 ABG O2 Saturation ABG Base Excess ABG Hemoglobin ABG Oxyhemoglobin ABG Potassium ABG Glucose Oxyhemoglobin Carboxyhemoglobin Sodium 151 H Potassium Chloride Carbon Dioxide 37 H BUN Creatinine < 0.2 L Glucose 171 H POC Glucose 248 H Calcium Ferritin Total Bilirubin Alkaline Phosphatase Lactate Dehydrogenase Total Creatine Kinase CK-MB (CK-2) Rel Index Troponin T C-Reactive Protein Total Protein Albumin Prealbumin LDL Cholesterol Direct HDL Cholesterol Arterial Blood Glucose Arterial Blood Ionized Calcium Urine WBC (Auto) 03/11/20 03/11/20 03/12/20 17:09 23:52 04:39 WBC 19.9 H RBC 3.16 L Hgb 8.9 L Hct 27.5 L MCV MCH RDW 15.7 H Plt Count Lymph % (Auto) 6.8 L [place] % (Auto) Lymph # (Auto) [place] # (Auto) 1.2 H Seg Neutrophils % 86.0 H Seg Neuts % (Manual) Lymphocytes % (Manual) Monocytes % (Manual) Basophils % (Manual) Seg Neutrophils # 17.1 H Seg Neutrophils # Man Lymphocytes # (Manual) Monocytes # (Manual) Eosinophils # (Manual) Basophils # (Manual) PT INR D-Dimer ABG pH POC ABG pCO2 POC ABG pO2 ABG pO2 ABG HCO3 ABG O2 Saturation ABG Base Excess ABG Hemoglobin ABG Oxyhemoglobin ABG Potassium ABG Glucose Oxyhemoglobin Carboxyhemoglobin Sodium Potassium Chloride Carbon Dioxide BUN Creatinine Glucose POC Glucose 124 H 131 H Calcium Ferritin Total Bilirubin Alkaline Phosphatase Lactate Dehydrogenase Total Creatine Kinase CK-MB (CK-2) Rel Index Troponin T C-Reactive Protein Total Protein Albumin Prealbumin LDL Cholesterol Direct HDL Cholesterol Arterial Blood Glucose Arterial Blood Ionized Calcium Urine WBC (Auto) 03/12/20 03/12/20 03/12/20 04:39 05:28 11:34 WBC RBC Hgb Hct MCV MCH RDW Plt Count Lymph % (Auto) [place] % (Auto) Lymph # (Auto) [place] # (Auto) Seg Neutrophils % Seg Neuts % (Manual) Lymphocytes % (Manual) Monocytes % (Manual) Basophils % (Manual) Seg Neutrophils # Seg Neutrophils # Man Lymphocytes # (Manual) Monocytes # (Manual) Eosinophils # (Manual) Basophils # (Manual) PT INR D-Dimer ABG pH POC ABG pCO2 POC ABG pO2 ABG pO2 ABG HCO3 ABG O2 Saturation ABG Base Excess ABG Hemoglobin ABG Oxyhemoglobin ABG Potassium ABG Glucose Oxyhemoglobin Carboxyhemoglobin Sodium 147 H Potassium Chloride Carbon Dioxide 40 H BUN Creatinine < 0.2 L Glucose 175 H POC Glucose 167 H 144 H Calcium Ferritin Total Bilirubin Alkaline Phosphatase Lactate Dehydrogenase Total Creatine Kinase CK-MB (CK-2) Rel Index Troponin T C-Reactive Protein Total Protein Albumin Prealbumin LDL Cholesterol Direct HDL Cholesterol Arterial Blood Glucose Arterial Blood Ionized Calcium Urine WBC (Auto) 03/12/20 03/12/20 03/13/20 17:32 23:57 05:57 WBC RBC Hgb Hct MCV MCH RDW Plt Count Lymph % (Auto) [place] % (Auto) Lymph # (Auto) [place] # (Auto) Seg Neutrophils % Seg Neuts % (Manual) Lymphocytes % (Manual) Monocytes % (Manual) Basophils % (Manual) Seg Neutrophils # Seg Neutrophils # Man Lymphocytes # (Manual) Monocytes # (Manual) Eosinophils # (Manual) Basophils # (Manual) PT INR D-Dimer ABG pH POC ABG pCO2 POC ABG pO2 ABG pO2 ABG HCO3 ABG O2 Saturation ABG Base Excess ABG Hemoglobin ABG Oxyhemoglobin ABG Potassium ABG Glucose Oxyhemoglobin Carboxyhemoglobin Sodium Potassium Chloride Carbon Dioxide BUN Creatinine Glucose POC Glucose 141 H 137 H 161 H Calcium Ferritin Total Bilirubin Alkaline Phosphatase Lactate Dehydrogenase Total Creatine Kinase CK-MB (CK-2) Rel Index Troponin T C-Reactive Protein Total Protein Albumin Prealbumin LDL Cholesterol Direct HDL Cholesterol Arterial Blood Glucose Arterial Blood Ionized Calcium Urine WBC (Auto) 03/13/20 03/13/2020 12:28 14:14 18:39 WBC RBC Hgb Hct MCV MCH RDW Plt Count Lymph % (Auto) [place] % (Auto) Lymph # (Auto) [place] # (Auto) Seg Neutrophils % Seg Neuts % (Manual) Lymphocytes % (Manual) Monocytes % (Manual) Basophils % (Manual) Seg Neutrophils # Seg Neutrophils # Man Lymphocytes # (Manual) Monocytes # (Manual) Eosinophils # (Manual) Basophils # (Manual) PT INR D-Dimer ABG pH POC ABG pCO2 POC ABG pO2 ABG pO2 ABG HCO3 ABG O2 Saturation ABG Base Excess ABG Hemoglobin ABG Oxyhemoglobin ABG Potassium ABG Glucose Oxyhemoglobin Carboxyhemoglobin Sodium Potassium Chloride Carbon Dioxide 39 H BUN Creatinine < 0.2 L Glucose 129 H POC Glucose 130 H 125 H Calcium Ferritin Total Bilirubin Alkaline Phosphatase Lactate Dehydrogenase Total Creatine Kinase CK-MB (CK-2) Rel Index Troponin T C-Reactive Protein Total Protein Albumin Prealbumin LDL Cholesterol Direct HDL Cholesterol Arterial Blood Glucose Arterial Blood Ionized Calcium Urine WBC (Auto) 03/13/20 03/14/20 03/14/20 23:33 05:24 08:07 WBC 16.8 H RBC 2.81 L Hgb 7.9 L Hct 23.9 L MCV MCH RDW 15.9 H Plt Count Lymph % (Auto) [place] % (Auto) Lymph # (Auto) [place] # (Auto) Seg Neutrophils % Seg Neuts % (Manual) 84.0 H Lymphocytes % (Manual) 10.0 L Monocytes % (Manual) Basophils % (Manual) Seg Neutrophils # Seg Neutrophils # Man 14.1 H Lymphocytes # (Manual) Monocytes # (Manual) Eosinophils # (Manual) Basophils # (Manual) PT INR D-Dimer ABG pH POC ABG pCO2 POC ABG pO2 ABG pO2 ABG HCO3 ABG O2 Saturation ABG Base Excess ABG Hemoglobin ABG Oxyhemoglobin ABG Potassium ABG Glucose Oxyhemoglobin Carboxyhemoglobin Sodium Potassium Chloride Carbon Dioxide BUN Creatinine Glucose POC Glucose 146 H 125 H Calcium Ferritin Total Bilirubin Alkaline Phosphatase Lactate Dehydrogenase Total Creatine Kinase CK-MB (CK-2) Rel Index Troponin T C-Reactive Protein Total Protein Albumin Prealbumin LDL Cholesterol Direct HDL Cholesterol Arterial Blood Glucose Arterial Blood Ionized Calcium Urine WBC (Auto) 03/14/20 03/14/20 03/14/20 08:07 12:21 18:26 WBC RBC Hgb Hct MCV MCH RDW Plt Count Lymph % (Auto) [place] % (Auto) Lymph # (Auto) [place] # (Auto) Seg Neutrophils % Seg Neuts % (Manual) Lymphocytes % (Manual) Monocytes % (Manual) Basophils % (Manual) Seg Neutrophils # Seg Neutrophils # Man Lymphocytes # (Manual) Monocytes # (Manual) Eosinophils # (Manual) Basophils # (Manual) PT INR D-Dimer ABG pH POC ABG pCO2 POC ABG pO2 ABG pO2 ABG HCO3 ABG O2 Saturation ABG Base Excess ABG Hemoglobin ABG Oxyhemoglobin ABG Potassium ABG Glucose Oxyhemoglobin Carboxyhemoglobin Sodium Potassium Chloride 97.0 L Carbon Dioxide 37 H BUN Creatinine < 0.2 L Glucose 129 H POC Glucose 109 H 142 H Calcium 8.3 L Ferritin Total Bilirubin Alkaline Phosphatase Lactate Dehydrogenase Total Creatine Kinase CK-MB (CK-2) Rel Index Troponin T C-Reactive Protein Total Protein Albumin Prealbumin LDL Cholesterol Direct HDL Cholesterol Arterial Blood Glucose Arterial Blood Ionized Calcium Urine WBC (Auto) 03/14/20 03/15/20 03/15/20 23:57 05:46 08:06 WBC 19.7 H RBC 3.29 L Hgb 9.1 L Hct 28.0 L MCV MCH RDW 15.9 H Plt Count Lymph % (Auto) [place] % (Auto) Lymph # (Auto) [place] # (Auto) Seg Neutrophils % Seg Neuts % (Manual) Lymphocytes % (Manual) Monocytes % (Manual) Basophils % (Manual) Seg Neutrophils # Seg Neutrophils # Man Lymphocytes # (Manual) Monocytes # (Manual) Eosinophils # (Manual) Basophils # (Manual) PT INR D-Dimer ABG pH POC ABG pCO2 POC ABG pO2 ABG pO2 ABG HCO3 ABG O2 Saturation ABG Base Excess ABG Hemoglobin ABG Oxyhemoglobin ABG Potassium ABG Glucose Oxyhemoglobin Carboxyhemoglobin Sodium Potassium Chloride Carbon Dioxide BUN Creatinine Glucose POC Glucose 157 H 118 H Calcium Ferritin Total Bilirubin Alkaline Phosphatase Lactate Dehydrogenase Total Creatine Kinase CK-MB (CK-2) Rel Index Troponin T C-Reactive Protein Total Protein Albumin Prealbumin LDL Cholesterol Direct HDL Cholesterol Arterial Blood Glucose Arterial Blood Ionized Calcium Urine WBC (Auto) 03/15/20 03/15/20 03/15/20 08:06 12:44 18:09 WBC RBC Hgb Hct MCV MCH RDW Plt Count Lymph % (Auto) [place] % (Auto) Lymph # (Auto) [place] # (Auto) Seg Neutrophils % Seg Neuts % (Manual) Lymphocytes % (Manual) Monocytes % (Manual) Basophils % (Manual) Seg Neutrophils # Seg Neutrophils # Man Lymphocytes # (Manual) Monocytes # (Manual) Eosinophils # (Manual) Basophils # (Manual) PT INR D-Dimer ABG pH POC ABG pCO2 POC ABG pO2 ABG pO2 ABG HCO3 ABG O2 Saturation ABG Base Excess ABG Hemoglobin ABG Oxyhemoglobin ABG Potassium ABG Glucose Oxyhemoglobin Carboxyhemoglobin Sodium 136 L Potassium Chloride 93.6 L Carbon Dioxide 37 H BUN Creatinine < 0.2 L Glucose 132 H POC Glucose 151 H 164 H Calcium Ferritin Total Bilirubin Alkaline Phosphatase Lactate Dehydrogenase Total Creatine Kinase CK-MB (CK-2) Rel Index Troponin T C-Reactive Protein Total Protein Albumin Prealbumin LDL Cholesterol Direct HDL Cholesterol Arterial Blood Glucose Arterial Blood Ionized Calcium Urine WBC (Auto) 03/15/20 03/16/20 03/16/20 23:26 05:39 11:58 WBC RBC Hgb Hct MCV MCH RDW Plt Count Lymph % (Auto) [place] % (Auto) Lymph # (Auto) [place] # (Auto) Seg Neutrophils % Seg Neuts % (Manual) Lymphocytes % (Manual) Monocytes % (Manual) Basophils % (Manual) Seg Neutrophils # Seg Neutrophils # Man Lymphocytes # (Manual) Monocytes # (Manual) Eosinophils # (Manual) Basophils # (Manual) PT INR D-Dimer ABG pH POC ABG pCO2 POC ABG pO2 ABG pO2 ABG HCO3 ABG O2 Saturation ABG Base Excess ABG Hemoglobin ABG Oxyhemoglobin ABG Potassium ABG Glucose Oxyhemoglobin Carboxyhemoglobin Sodium Potassium Chloride Carbon Dioxide BUN Creatinine Glucose POC Glucose 136 H 116 H 109 H Calcium Ferritin Total Bilirubin Alkaline Phosphatase Lactate Dehydrogenase Total Creatine Kinase CK-MB (CK-2) Rel Index Troponin T C-Reactive Protein Total Protein Albumin Prealbumin LDL Cholesterol Direct HDL Cholesterol Arterial Blood Glucose Arterial Blood Ionized Calcium Urine WBC (Auto) 03/16/20 03/17/20 03/17/20 23:56 04:40 04:40 WBC 18.0 H RBC 3.33 L Hgb 9.5 L Hct 28.8 L MCV MCH RDW 16.4 H Plt Count 499 H Lymph % (Auto) [place] % (Auto) Lymph # (Auto) [place] # (Auto) Seg Neutrophils % Seg Neuts % (Manual) 82.0 H Lymphocytes % (Manual) 8.0 L Monocytes % (Manual) Basophils % (Manual) Seg Neutrophils # Seg Neutrophils # Man 14.8 H Lymphocytes # (Manual) Monocytes # (Manual) 1.3 H Eosinophils # (Manual) Basophils # (Manual) 0.2 H PT INR D-Dimer ABG pH POC ABG pCO2 POC ABG pO2 ABG pO2 ABG HCO3 ABG O2 Saturation ABG Base Excess ABG Hemoglobin ABG Oxyhemoglobin ABG Potassium ABG Glucose Oxyhemoglobin Carboxyhemoglobin Sodium Potassium Chloride 97.7 L Carbon Dioxide 32 H BUN Creatinine < 0.2 L Glucose 114 H POC Glucose 131 H Calcium Ferritin Total Bilirubin Alkaline Phosphatase Lactate Dehydrogenase Total Creatine Kinase CK-MB (CK-2) Rel Index Troponin T C-Reactive Protein Total Protein Albumin Prealbumin LDL Cholesterol Direct HDL Cholesterol Arterial Blood Glucose Arterial Blood Ionized Calcium Urine WBC (Auto) 03/18/20 03/18/20 03/18/20 00:21 05:21 11:55 WBC RBC Hgb Hct MCV MCH RDW Plt Count Lymph % (Auto) [place] % (Auto) Lymph # (Auto) [place] # (Auto) Seg Neutrophils % Seg Neuts % (Manual) Lymphocytes % (Manual) Monocytes % (Manual) Basophils % (Manual) Seg Neutrophils # Seg Neutrophils # Man Lymphocytes # (Manual) Monocytes # (Manual) Eosinophils # (Manual) Basophils # (Manual) PT INR D-Dimer ABG pH POC ABG pCO2 POC ABG pO2 ABG pO2 ABG HCO3 ABG O2 Saturation ABG Base Excess ABG Hemoglobin ABG Oxyhemoglobin ABG Potassium ABG Glucose Oxyhemoglobin Carboxyhemoglobin Sodium Potassium Chloride Carbon Dioxide BUN Creatinine Glucose POC Glucose 124 H 138 H 119 H Calcium Ferritin Total Bilirubin Alkaline Phosphatase Lactate Dehydrogenase Total Creatine Kinase CK-MB (CK-2) Rel Index Troponin T C-Reactive Protein Total Protein Albumin Prealbumin LDL Cholesterol Direct HDL Cholesterol Arterial Blood Glucose Arterial Blood Ionized Calcium Urine WBC (Auto) 03/18/20 03/18/20 03/19/20 17:03 23:58 05:24 WBC RBC Hgb Hct MCV MCH RDW Plt Count Lymph % (Auto) [place] % (Auto) Lymph # (Auto) [place] # (Auto) Seg Neutrophils % Seg Neuts % (Manual) Lymphocytes % (Manual) Monocytes % (Manual) Basophils % (Manual) Seg Neutrophils # Seg Neutrophils # Man Lymphocytes # (Manual) Monocytes # (Manual) Eosinophils # (Manual) Basophils # (Manual) PT INR D-Dimer ABG pH POC ABG pCO2 POC ABG pO2 ABG pO2 ABG HCO3 ABG O2 Saturation ABG Base Excess ABG Hemoglobin ABG Oxyhemoglobin ABG Potassium ABG Glucose Oxyhemoglobin Carboxyhemoglobin Sodium Potassium Chloride Carbon Dioxide BUN Creatinine Glucose POC Glucose 128 H 128 H 115 H Calcium Ferritin Total Bilirubin Alkaline Phosphatase Lactate Dehydrogenase Total Creatine Kinase CK-MB (CK-2) Rel Index Troponin T C-Reactive Protein Total Protein Albumin Prealbumin LDL Cholesterol Direct HDL Cholesterol Arterial Blood Glucose Arterial Blood Ionized Calcium Urine WBC (Auto) 03/19/20 03/19/20 03/19/20 08:05 08:05 11:56 WBC 16.8 H RBC 3.36 L Hgb 9.4 L Hct 28.8 L MCV MCH RDW 17.4 H Plt Count 567 H Lymph % (Auto) 7.8 L [place] % (Auto) Lymph # (Auto) [place] # (Auto) 1.2 H Seg Neutrophils % 83.5 H Seg Neuts % (Manual) Lymphocytes % (Manual) Monocytes % (Manual) Basophils % (Manual) Seg Neutrophils # 14.1 H Seg Neutrophils # Man Lymphocytes # (Manual) Monocytes # (Manual) Eosinophils # (Manual) Basophils # (Manual) PT INR D-Dimer ABG pH POC ABG pCO2 POC ABG pO2 ABG pO2 ABG HCO3 ABG O2 Saturation ABG Base Excess ABG Hemoglobin ABG Oxyhemoglobin ABG Potassium ABG Glucose Oxyhemoglobin Carboxyhemoglobin Sodium Potassium Chloride Carbon Dioxide 36 H BUN Creatinine < 0.2 L Glucose 135 H POC Glucose 128 H Calcium Ferritin Total Bilirubin Alkaline Phosphatase Lactate Dehydrogenase Total Creatine Kinase CK-MB (CK-2) Rel Index Troponin T C-Reactive Protein Total Protein Albumin Prealbumin LDL Cholesterol Direct HDL Cholesterol Arterial Blood Glucose Arterial Blood Ionized Calcium Urine WBC (Auto) 03/19/20 03/20/20 03/20/20 23:59 05:12 16:52 WBC RBC Hgb Hct MCV MCH RDW Plt Count Lymph % (Auto) [place] % (Auto) Lymph # (Auto) [place] # (Auto) Seg Neutrophils % Seg Neuts % (Manual) Lymphocytes % (Manual) Monocytes % (Manual) Basophils % (Manual) Seg Neutrophils # Seg Neutrophils # Man Lymphocytes # (Manual) Monocytes # (Manual) Eosinophils # (Manual) Basophils # (Manual) PT INR D-Dimer ABG pH POC ABG pCO2 POC ABG pO2 ABG pO2 ABG HCO3 ABG O2 Saturation ABG Base Excess ABG Hemoglobin ABG Oxyhemoglobin ABG Potassium ABG Glucose Oxyhemoglobin Carboxyhemoglobin Sodium Potassium Chloride Carbon Dioxide BUN Creatinine Glucose POC Glucose 120 H 131 H 124 H Calcium Ferritin Total Bilirubin Alkaline Phosphatase Lactate Dehydrogenase Total Creatine Kinase CK-MB (CK-2) Rel Index Troponin T C-Reactive Protein Total Protein Albumin Prealbumin LDL Cholesterol Direct HDL Cholesterol Arterial Blood Glucose Arterial Blood Ionized Calcium Urine WBC (Auto) 03/20/20 03/21/20 03/21/20 23:35 04:50 07:35 WBC 15.2 H RBC 3.39 L Hgb 9.4 L Hct 29.4 L MCV MCH RDW 17.6 H Plt Count 518 H Lymph % (Auto) [place] % (Auto) Lymph # (Auto) [place] # (Auto) Seg Neutrophils % Seg Neuts % (Manual) 83.0 H Lymphocytes % (Manual) 10.0 L Monocytes % (Manual) Basophils % (Manual) 2.0 H Seg Neutrophils # Seg Neutrophils # Man 12.6 H Lymphocytes # (Manual) Monocytes # (Manual) Eosinophils # (Manual) Basophils # (Manual) 0.3 H PT INR D-Dimer ABG pH POC ABG pCO2 POC ABG pO2 ABG pO2 ABG HCO3 ABG O2 Saturation ABG Base Excess ABG Hemoglobin ABG Oxyhemoglobin ABG Potassium ABG Glucose Oxyhemoglobin Carboxyhemoglobin Sodium Potassium Chloride Carbon Dioxide BUN Creatinine Glucose POC Glucose 125 H 127 H Calcium Ferritin Total Bilirubin Alkaline Phosphatase Lactate Dehydrogenase Total Creatine Kinase CK-MB (CK-2) Rel Index Troponin T C-Reactive Protein Total Protein Albumin Prealbumin LDL Cholesterol Direct HDL Cholesterol Arterial Blood Glucose Arterial Blood Ionized Calcium Urine WBC (Auto) 03/21/20 03/21/20 03/21/20 07:35 11:45 17:22 WBC RBC Hgb Hct MCV MCH RDW Plt Count Lymph % (Auto) [place] % (Auto) Lymph # (Auto) [place] # (Auto) Seg Neutrophils % Seg Neuts % (Manual) Lymphocytes % (Manual) Monocytes % (Manual) Basophils % (Manual) Seg Neutrophils # Seg Neutrophils # Man Lymphocytes # (Manual) Monocytes # (Manual) Eosinophils # (Manual) Basophils # (Manual) PT INR D-Dimer ABG pH POC ABG pCO2 POC ABG pO2 ABG pO2 ABG HCO3 ABG O2 Saturation ABG Base Excess ABG Hemoglobin ABG Oxyhemoglobin ABG Potassium ABG Glucose Oxyhemoglobin Carboxyhemoglobin Sodium 136 L Potassium Chloride 97.7 L Carbon Dioxide 32 H BUN Creatinine < 0.2 L Glucose 103 H POC Glucose 126 H 120 H Calcium Ferritin Total Bilirubin Alkaline Phosphatase Lactate Dehydrogenase Total Creatine Kinase CK-MB (CK-2) Rel Index Troponin T C-Reactive Protein Total Protein Albumin Prealbumin LDL Cholesterol Direct HDL Cholesterol Arterial Blood Glucose Arterial Blood Ionized Calcium Urine WBC (Auto) 03/22/20 03/22/20 03/22/20 05:09 06:34 06:34 WBC 17.5 H RBC 3.52 L Hgb 10.0 L Hct 30.7 L MCV MCH RDW 17.5 H Plt Count 499 H Lymph % (Auto) [place] % (Auto) Lymph # (Auto) [place] # (Auto) Seg Neutrophils % Seg Neuts % (Manual) 80.0 H Lymphocytes % (Manual) 10.0 L Monocytes % (Manual) Basophils % (Manual) Seg Neutrophils # Seg Neutrophils # Man 14.0 H Lymphocytes # (Manual) Monocytes # (Manual) Eosinophils # (Manual) Basophils # (Manual) PT INR D-Dimer ABG pH POC ABG pCO2 POC ABG pO2 ABG pO2 ABG HCO3 ABG O2 Saturation ABG Base Excess ABG Hemoglobin ABG Oxyhemoglobin ABG Potassium ABG Glucose Oxyhemoglobin Carboxyhemoglobin Sodium Potassium Chloride 96.6 L Carbon Dioxide 38 H BUN Creatinine < 0.2 L Glucose 139 H POC Glucose 125 H Calcium Ferritin Total Bilirubin Alkaline Phosphatase Lactate Dehydrogenase Total Creatine Kinase CK-MB (CK-2) Rel Index Troponin T C-Reactive Protein Total Protein Albumin Prealbumin LDL Cholesterol Direct HDL Cholesterol Arterial Blood Glucose Arterial Blood Ionized Calcium Urine WBC (Auto) 03/22/20 03/22/20 03/22/20 11:45 18:00 23:32 WBC RBC Hgb Hct MCV MCH RDW Plt Count Lymph % (Auto) [place] % (Auto) Lymph # (Auto) [place] # (Auto) Seg Neutrophils % Seg Neuts % (Manual) Lymphocytes % (Manual) Monocytes % (Manual) Basophils % (Manual) Seg Neutrophils # Seg Neutrophils # Man Lymphocytes # (Manual) Monocytes # (Manual) Eosinophils # (Manual) Basophils # (Manual) PT INR D-Dimer ABG pH POC ABG pCO2 POC ABG pO2 ABG pO2 ABG HCO3 ABG O2 Saturation ABG Base Excess ABG Hemoglobin ABG Oxyhemoglobin ABG Potassium ABG Glucose Oxyhemoglobin Carboxyhemoglobin Sodium Potassium Chloride Carbon Dioxide BUN Creatinine Glucose POC Glucose 135 H 133 H Calcium Ferritin Total Bilirubin Alkaline Phosphatase Lactate Dehydrogenase Total Creatine Kinase CK-MB (CK-2) Rel Index Troponin T 0.113 H* C-Reactive Protein Total Protein Albumin Prealbumin LDL Cholesterol Direct HDL Cholesterol Arterial Blood Glucose Arterial Blood Ionized Calcium Urine WBC (Auto) 03/23/20 03/23/20 03/23/20 01:47 06:21 07:57 WBC RBC Hgb Hct MCV MCH RDW Plt Count Lymph % (Auto) [place] % (Auto) Lymph # (Auto) [place] # (Auto) Seg Neutrophils % Seg Neuts % (Manual) Lymphocytes % (Manual) Monocytes % (Manual) Basophils % (Manual) Seg Neutrophils # Seg Neutrophils # Man Lymphocytes # (Manual) Monocytes # (Manual) Eosinophils # (Manual) Basophils # (Manual) PT INR D-Dimer ABG pH POC ABG pCO2 POC ABG pO2 ABG pO2 ABG HCO3 ABG O2 Saturation ABG Base Excess ABG Hemoglobin ABG Oxyhemoglobin ABG Potassium ABG Glucose Oxyhemoglobin Carboxyhemoglobin Sodium Potassium Chloride Carbon Dioxide BUN Creatinine Glucose POC Glucose 130 H Calcium Ferritin Total Bilirubin Alkaline Phosphatase Lactate Dehydrogenase Total Creatine Kinase CK-MB (CK-2) Rel Index Troponin T 0.143 H* D 0.105 H* D C-Reactive Protein Total Protein Albumin Prealbumin LDL Cholesterol Direct HDL Cholesterol Arterial Blood Glucose Arterial Blood Ionized Calcium Urine WBC (Auto) 03/23/20 03/24/20 03/24/20 12:02 05:33 07:15 WBC 18.0 H RBC Hgb 11.0 L Hct 34.0 L MCV MCH RDW 17.4 H Plt Count 520 H Lymph % (Auto) [place] % (Auto) Lymph # (Auto) [place] # (Auto) Seg Neutrophils % Seg Neuts % (Manual) 88.0 H Lymphocytes % (Manual) 7.0 L Monocytes % (Manual) Basophils % (Manual) Seg Neutrophils # Seg Neutrophils # Man 15.8 H Lymphocytes # (Manual) Monocytes # (Manual) Eosinophils # (Manual) Basophils # (Manual) PT INR D-Dimer ABG pH POC ABG pCO2 POC ABG pO2 ABG pO2 ABG HCO3 ABG O2 Saturation ABG Base Excess ABG Hemoglobin ABG Oxyhemoglobin ABG Potassium ABG Glucose Oxyhemoglobin Carboxyhemoglobin Sodium Potassium Chloride Carbon Dioxide BUN Creatinine Glucose POC Glucose 137 H 112 H Calcium Ferritin Total Bilirubin Alkaline Phosphatase Lactate Dehydrogenase Total Creatine Kinase CK-MB (CK-2) Rel Index Troponin T C-Reactive Protein Total Protein Albumin Prealbumin LDL Cholesterol Direct HDL Cholesterol Arterial Blood Glucose Arterial Blood Ionized Calcium Urine WBC (Auto) 03/24/20 03/24/20 03/24/20 07:15 11:22 23:30 WBC RBC Hgb Hct MCV MCH RDW Plt Count Lymph % (Auto) [place] % (Auto) Lymph # (Auto) [place] # (Auto) Seg Neutrophils % Seg Neuts % (Manual) Lymphocytes % (Manual) Monocytes % (Manual) Basophils % (Manual) Seg Neutrophils # Seg Neutrophils # Man Lymphocytes # (Manual) Monocytes # (Manual) Eosinophils # (Manual) Basophils # (Manual) PT INR D-Dimer ABG pH POC ABG pCO2 POC ABG pO2 ABG pO2 ABG HCO3 ABG O2 Saturation ABG Base Excess ABG Hemoglobin ABG Oxyhemoglobin ABG Potassium ABG Glucose Oxyhemoglobin Carboxyhemoglobin Sodium Potassium Chloride 96.6 L Carbon Dioxide 38 H BUN Creatinine < 0.2 L Glucose 141 H POC Glucose 130 H 120 H Calcium Ferritin Total Bilirubin Alkaline Phosphatase Lactate Dehydrogenase Total Creatine Kinase CK-MB (CK-2) Rel Index Troponin T C-Reactive Protein Total Protein Albumin Prealbumin LDL Cholesterol Direct HDL Cholesterol Arterial Blood Glucose Arterial Blood Ionized Calcium Urine WBC (Auto) 03/25/20 03/25/20 03/25/20 05:48 17:53 23:18 WBC RBC Hgb Hct MCV MCH RDW Plt Count Lymph % (Auto) [place] % (Auto) Lymph # (Auto) [place] # (Auto) Seg Neutrophils % Seg Neuts % (Manual) Lymphocytes % (Manual) Monocytes % (Manual) Basophils % (Manual) Seg Neutrophils # Seg Neutrophils # Man Lymphocytes # (Manual) Monocytes # (Manual) Eosinophils # (Manual) Basophils # (Manual) PT INR D-Dimer ABG pH POC ABG pCO2 POC ABG pO2 ABG pO2 ABG HCO3 ABG O2 Saturation ABG Base Excess ABG Hemoglobin ABG Oxyhemoglobin ABG Potassium ABG Glucose Oxyhemoglobin Carboxyhemoglobin Sodium Potassium Chloride Carbon Dioxide BUN Creatinine Glucose POC Glucose 124 H 109 H 131 H Calcium Ferritin Total Bilirubin Alkaline Phosphatase Lactate Dehydrogenase Total Creatine Kinase CK-MB (CK-2) Rel Index Troponin T C-Reactive Protein Total Protein Albumin Prealbumin LDL Cholesterol Direct HDL Cholesterol Arterial Blood Glucose Arterial Blood Ionized Calcium Urine WBC (Auto) 03/26/20 03/26/20 03/26/20 05:21 08:49 08:49 WBC 19.7 H RBC Hgb 10.7 L Hct 33.5 L MCV MCH 27 L RDW 17.1 H Plt Count 480 H Lymph % (Auto) 5.7 L [place] % (Auto) Lymph # (Auto) 1.1 L [place] # (Auto) 1.2 H Seg Neutrophils % 87.7 H Seg Neuts % (Manual) Lymphocytes % (Manual) Monocytes % (Manual) Basophils % (Manual) Seg Neutrophils # 17.2 H Seg Neutrophils # Man Lymphocytes # (Manual) Monocytes # (Manual) Eosinophils # (Manual) Basophils # (Manual) PT INR D-Dimer ABG pH POC ABG pCO2 POC ABG pO2 ABG pO2 ABG HCO3 ABG O2 Saturation ABG Base Excess ABG Hemoglobin ABG Oxyhemoglobin ABG Potassium ABG Glucose Oxyhemoglobin Carboxyhemoglobin Sodium Potassium Chloride 97.2 L Carbon Dioxide 36 H BUN Creatinine < 0.2 L Glucose 127 H POC Glucose 116 H Calcium Ferritin Total Bilirubin Alkaline Phosphatase Lactate Dehydrogenase Total Creatine Kinase CK-MB (CK-2) Rel Index Troponin T C-Reactive Protein Total Protein Albumin Prealbumin LDL Cholesterol Direct HDL Cholesterol Arterial Blood Glucose Arterial Blood Ionized Calcium Urine WBC (Auto) 03/26/20 03/26/20 03/26/20 11:38 18:44 23:06 WBC RBC Hgb Hct MCV MCH RDW Plt Count Lymph % (Auto) [place] % (Auto) Lymph # (Auto) [place] # (Auto) Seg Neutrophils % Seg Neuts % (Manual) Lymphocytes % (Manual) Monocytes % (Manual) Basophils % (Manual) Seg Neutrophils # Seg Neutrophils # Man Lymphocytes # (Manual) Monocytes # (Manual) Eosinophils # (Manual) Basophils # (Manual) PT INR D-Dimer ABG pH POC ABG pCO2 POC ABG pO2 ABG pO2 ABG HCO3 ABG O2 Saturation ABG Base Excess ABG Hemoglobin ABG Oxyhemoglobin ABG Potassium ABG Glucose Oxyhemoglobin Carboxyhemoglobin Sodium Potassium Chloride Carbon Dioxide BUN Creatinine Glucose POC Glucose 120 H 111 H 134 H Calcium Ferritin Total Bilirubin Alkaline Phosphatase Lactate Dehydrogenase Total Creatine Kinase CK-MB (CK-2) Rel Index Troponin T C-Reactive Protein Total Protein Albumin Prealbumin LDL Cholesterol Direct HDL Cholesterol Arterial Blood Glucose Arterial Blood Ionized Calcium Urine WBC (Auto) 03/27/20 03/27/20 03/27/20 05:41 05:59 05:59 WBC 18.6 H RBC Hgb 10.1 L Hct 31.4 L MCV MCH RDW 17.2 H Plt Count Lymph % (Auto) 8.0 L [place] % (Auto) Lymph # (Auto) [place] # (Auto) 1.2 H Seg Neutrophils % 84.7 H Seg Neuts % (Manual) Lymphocytes % (Manual) Monocytes % (Manual) Basophils % (Manual) Seg Neutrophils # 15.8 H Seg Neutrophils # Man Lymphocytes # (Manual) Monocytes # (Manual) Eosinophils # (Manual) Basophils # (Manual) PT INR D-Dimer ABG pH POC ABG pCO2 POC ABG pO2 ABG pO2 ABG HCO3 ABG O2 Saturation ABG Base Excess ABG Hemoglobin ABG Oxyhemoglobin ABG Potassium ABG Glucose Oxyhemoglobin Carboxyhemoglobin Sodium Potassium Chloride Carbon Dioxide 34 H BUN Creatinine < 0.2 L Glucose 127 H POC Glucose 129 H Calcium Ferritin Total Bilirubin Alkaline Phosphatase Lactate Dehydrogenase Total Creatine Kinase CK-MB (CK-2) Rel Index Troponin T C-Reactive Protein Total Protein Albumin Prealbumin LDL Cholesterol Direct HDL Cholesterol Arterial Blood Glucose Arterial Blood Ionized Calcium Urine WBC (Auto) 03/27/20 03/27/20 03/28/20 17:28 23:22 05:23 WBC RBC Hgb Hct MCV MCH RDW Plt Count Lymph % (Auto) [place] % (Auto) Lymph # (Auto) [place] # (Auto) Seg Neutrophils % Seg Neuts % (Manual) Lymphocytes % (Manual) Monocytes % (Manual) Basophils % (Manual) Seg Neutrophils # Seg Neutrophils # Man Lymphocytes # (Manual) Monocytes # (Manual) Eosinophils # (Manual) Basophils # (Manual) PT INR D-Dimer ABG pH POC ABG pCO2 POC ABG pO2 ABG pO2 ABG HCO3 ABG O2 Saturation ABG Base Excess ABG Hemoglobin ABG Oxyhemoglobin ABG Potassium ABG Glucose Oxyhemoglobin Carboxyhemoglobin Sodium Potassium Chloride Carbon Dioxide BUN Creatinine Glucose POC Glucose 108 H 119 H 129 H Calcium Ferritin Total Bilirubin Alkaline Phosphatase Lactate Dehydrogenase Total Creatine Kinase CK-MB (CK-2) Rel Index Troponin T C-Reactive Protein Total Protein Albumin Prealbumin LDL Cholesterol Direct HDL Cholesterol Arterial Blood Glucose Arterial Blood Ionized Calcium Urine WBC (Auto) 03/28/20 03/28/20 03/28/20 10:28 10:28 11:36 WBC 23.6 H RBC 3.62 L Hgb 10.0 L Hct 30.8 L MCV MCH RDW 16.4 H Plt Count Lymph % (Auto) [place] % (Auto) Lymph # (Auto) [place] # (Auto) Seg Neutrophils % Seg Neuts % (Manual) 89.0 H Lymphocytes % (Manual) 5.0 L Monocytes % (Manual) Basophils % (Manual) Seg Neutrophils # Seg Neutrophils # Man 21.0 H Lymphocytes # (Manual) Monocytes # (Manual) 1.2 H Eosinophils # (Manual) Basophils # (Manual) 0.2 H PT INR D-Dimer ABG pH POC ABG pCO2 POC ABG pO2 ABG pO2 ABG HCO3 ABG O2 Saturation ABG Base Excess ABG Hemoglobin ABG Oxyhemoglobin ABG Potassium ABG Glucose Oxyhemoglobin Carboxyhemoglobin Sodium 134 L Potassium Chloride 94.2 L Carbon Dioxide 35 H BUN Creatinine < 0.2 L Glucose 134 H POC Glucose Calcium Ferritin Total Bilirubin Alkaline Phosphatase Lactate Dehydrogenase Total Creatine Kinase CK-MB (CK-2) Rel Index Troponin T C-Reactive Protein Total Protein Albumin Prealbumin LDL Cholesterol Direct HDL Cholesterol Arterial Blood Glucose Arterial Blood Ionized Calcium Urine WBC (Auto) 39.0 H 03/28/20 03/28/20 03/28/20 11:51 17:08 17:17 WBC RBC Hgb Hct MCV MCH RDW Plt Count Lymph % (Auto) [place] % (Auto) Lymph # (Auto) [place] # (Auto) Seg Neutrophils % Seg Neuts % (Manual) Lymphocytes % (Manual) Monocytes % (Manual) Basophils % (Manual) Seg Neutrophils # Seg Neutrophils # Man Lymphocytes # (Manual) Monocytes # (Manual) Eosinophils # (Manual) Basophils # (Manual) PT INR D-Dimer ABG pH POC ABG pCO2 POC ABG pO2 ABG pO2 ABG HCO3 ABG O2 Saturation ABG Base Excess ABG Hemoglobin ABG Oxyhemoglobin ABG Potassium ABG Glucose Oxyhemoglobin Carboxyhemoglobin Sodium Potassium Chloride Carbon Dioxide BUN Creatinine Glucose POC Glucose 123 H 112 H Calcium Ferritin Total Bilirubin Alkaline Phosphatase Lactate Dehydrogenase Total Creatine Kinase 47 L CK-MB (CK-2) Rel Index 4.6 H Troponin T 0.090 H C-Reactive Protein Total Protein Albumin Prealbumin LDL Cholesterol Direct HDL Cholesterol Arterial Blood Glucose Arterial Blood Ionized Calcium Urine WBC (Auto) 03/28/20 03/29/20 03/29/20 23:22 05:22 10:58 WBC RBC Hgb Hct MCV MCH RDW Plt Count Lymph % (Auto) [place] % (Auto) Lymph # (Auto) [place] # (Auto) Seg Neutrophils % Seg Neuts % (Manual) Lymphocytes % (Manual) Monocytes % (Manual) Basophils % (Manual) Seg Neutrophils # Seg Neutrophils # Man Lymphocytes # (Manual) Monocytes # (Manual) Eosinophils # (Manual) Basophils # (Manual) PT INR D-Dimer ABG pH POC ABG pCO2 POC ABG pO2 ABG pO2 ABG HCO3 ABG O2 Saturation ABG Base Excess ABG Hemoglobin ABG Oxyhemoglobin ABG Potassium ABG Glucose Oxyhemoglobin Carboxyhemoglobin Sodium Potassium Chloride Carbon Dioxide BUN Creatinine Glucose POC Glucose 122 H 116 H 133 H Calcium Ferritin Total Bilirubin Alkaline Phosphatase Lactate Dehydrogenase Total Creatine Kinase CK-MB (CK-2) Rel Index Troponin T C-Reactive Protein Total Protein Albumin Prealbumin LDL Cholesterol Direct HDL Cholesterol Arterial Blood Glucose Arterial Blood Ionized Calcium Urine WBC (Auto) 03/29/20 03/29/20 03/30/20 17:18 23:14 04:57 WBC RBC Hgb Hct MCV MCH RDW Plt Count Lymph % (Auto) [place] % (Auto) Lymph # (Auto) [place] # (Auto) Seg Neutrophils % Seg Neuts % (Manual) Lymphocytes % (Manual) Monocytes % (Manual) Basophils % (Manual) Seg Neutrophils # Seg Neutrophils # Man Lymphocytes # (Manual) Monocytes # (Manual) Eosinophils # (Manual) Basophils # (Manual) PT INR D-Dimer ABG pH POC ABG pCO2 POC ABG pO2 ABG pO2 ABG HCO3 ABG O2 Saturation ABG Base Excess ABG Hemoglobin ABG Oxyhemoglobin ABG Potassium ABG Glucose Oxyhemoglobin Carboxyhemoglobin Sodium Potassium Chloride Carbon Dioxide BUN Creatinine Glucose POC Glucose 111 H 114 H 130 H Calcium Ferritin Total Bilirubin Alkaline Phosphatase Lactate Dehydrogenase Total Creatine Kinase CK-MB (CK-2) Rel Index Troponin T C-Reactive Protein Total Protein Albumin Prealbumin LDL Cholesterol Direct HDL Cholesterol Arterial Blood Glucose Arterial Blood Ionized Calcium Urine WBC (Auto) 03/30/20 03/30/20 03/30/20 11:38 14:47 14:47 WBC 19.9 H RBC Hgb 10.9 L Hct 34.4 L MCV MCH 27 L RDW 16.5 H Plt Count 441 H Lymph % (Auto) 6.4 L [place] % (Auto) Lymph # (Auto) [place] # (Auto) 1.4 H Seg Neutrophils % 86.1 H Seg Neuts % (Manual) Lymphocytes % (Manual) Monocytes % (Manual) Basophils % (Manual) Seg Neutrophils # 17.1 H Seg Neutrophils # Man Lymphocytes # (Manual) Monocytes # (Manual) Eosinophils # (Manual) Basophils # (Manual) PT INR D-Dimer ABG pH POC ABG pCO2 POC ABG pO2 ABG pO2 ABG HCO3 ABG O2 Saturation ABG Base Excess ABG Hemoglobin ABG Oxyhemoglobin ABG Potassium ABG Glucose Oxyhemoglobin Carboxyhemoglobin Sodium 133 L Potassium Chloride 94.6 L Carbon Dioxide 33 H BUN Creatinine < 0.2 L Glucose 194 H POC Glucose 139 H Calcium Ferritin Total Bilirubin Alkaline Phosphatase Lactate Dehydrogenase Total Creatine Kinase CK-MB (CK-2) Rel Index Troponin T C-Reactive Protein Total Protein Albumin 2.8 L Prealbumin LDL Cholesterol Direct HDL Cholesterol Arterial Blood Glucose Arterial Blood Ionized Calcium Urine WBC (Auto) 03/30/20 03/31/20 03/31/20 17:07 05:02 15:21 WBC RBC Hgb Hct MCV MCH RDW Plt Count Lymph % (Auto) [place] % (Auto) Lymph # (Auto) [place] # (Auto) Seg Neutrophils % Seg Neuts % (Manual) Lymphocytes % (Manual) Monocytes % (Manual) Basophils % (Manual) Seg Neutrophils # Seg Neutrophils # Man Lymphocytes # (Manual) Monocytes # (Manual) Eosinophils # (Manual) Basophils # (Manual) PT INR D-Dimer ABG pH POC ABG pCO2 POC ABG pO2 ABG pO2 ABG HCO3 ABG O2 Saturation ABG Base Excess ABG Hemoglobin ABG Oxyhemoglobin ABG Potassium ABG Glucose Oxyhemoglobin Carboxyhemoglobin Sodium Potassium Chloride Carbon Dioxide BUN Creatinine Glucose POC Glucose 163 H 108 H 110 H Calcium Ferritin Total Bilirubin Alkaline Phosphatase Lactate Dehydrogenase Total Creatine Kinase CK-MB (CK-2) Rel Index Troponin T C-Reactive Protein Total Protein Albumin Prealbumin LDL Cholesterol Direct HDL Cholesterol Arterial Blood Glucose Arterial Blood Ionized Calcium Urine WBC (Auto) 03/31/20 03/31/20 04/01/20 17:58 23:19 05:09 WBC RBC Hgb Hct MCV MCH RDW Plt Count Lymph % (Auto) [place] % (Auto) Lymph # (Auto) [place] # (Auto) Seg Neutrophils % Seg Neuts % (Manual) Lymphocytes % (Manual) Monocytes % (Manual) Basophils % (Manual) Seg Neutrophils # Seg Neutrophils # Man Lymphocytes # (Manual) Monocytes # (Manual) Eosinophils # (Manual) Basophils # (Manual) PT INR D-Dimer ABG pH POC ABG pCO2 POC ABG pO2 ABG pO2 ABG HCO3 ABG O2 Saturation ABG Base Excess ABG Hemoglobin ABG Oxyhemoglobin ABG Potassium ABG Glucose Oxyhemoglobin Carboxyhemoglobin Sodium Potassium Chloride Carbon Dioxide BUN Creatinine Glucose POC Glucose 110 H 131 H 124 H Calcium Ferritin Total Bilirubin Alkaline Phosphatase Lactate Dehydrogenase Total Creatine Kinase CK-MB (CK-2) Rel Index Troponin T C-Reactive Protein Total Protein Albumin Prealbumin LDL Cholesterol Direct HDL Cholesterol Arterial Blood Glucose Arterial Blood Ionized Calcium Urine WBC (Auto) 04/01/20 04/01/20 04/01/20 11:50 17:01 23:21 WBC RBC Hgb Hct MCV MCH RDW Plt Count Lymph % (Auto) [place] % (Auto) Lymph # (Auto) [place] # (Auto) Seg Neutrophils % Seg Neuts % (Manual) Lymphocytes % (Manual) Monocytes % (Manual) Basophils % (Manual) Seg Neutrophils # Seg Neutrophils # Man Lymphocytes # (Manual) Monocytes # (Manual) Eosinophils # (Manual) Basophils # (Manual) PT INR D-Dimer ABG pH POC ABG pCO2 POC ABG pO2 ABG pO2 ABG HCO3 ABG O2 Saturation ABG Base Excess ABG Hemoglobin ABG Oxyhemoglobin ABG Potassium ABG Glucose Oxyhemoglobin Carboxyhemoglobin Sodium Potassium Chloride Carbon Dioxide BUN Creatinine Glucose POC Glucose 136 H 115 H 124 H Calcium Ferritin Total Bilirubin Alkaline Phosphatase Lactate Dehydrogenase Total Creatine Kinase CK-MB (CK-2) Rel Index Troponin T C-Reactive Protein Total Protein Albumin Prealbumin LDL Cholesterol Direct HDL Cholesterol Arterial Blood Glucose Arterial Blood Ionized Calcium Urine WBC (Auto) 04/02/20 04/02/20 04/02/20 05:27 11:58 17:58 WBC RBC Hgb Hct MCV MCH RDW Plt Count Lymph % (Auto) [place] % (Auto) Lymph # (Auto) [place] # (Auto) Seg Neutrophils % Seg Neuts % (Manual) Lymphocytes % (Manual) Monocytes % (Manual) Basophils % (Manual) Seg Neutrophils # Seg Neutrophils # Man Lymphocytes # (Manual) Monocytes # (Manual) Eosinophils # (Manual) Basophils # (Manual) PT INR D-Dimer ABG pH POC ABG pCO2 POC ABG pO2 ABG pO2 ABG HCO3 ABG O2 Saturation ABG Base Excess ABG Hemoglobin ABG Oxyhemoglobin ABG Potassium ABG Glucose Oxyhemoglobin Carboxyhemoglobin Sodium Potassium Chloride Carbon Dioxide BUN Creatinine Glucose POC Glucose 117 H 133 H 122 H Calcium Ferritin Total Bilirubin Alkaline Phosphatase Lactate Dehydrogenase Total Creatine Kinase CK-MB (CK-2) Rel Index Troponin T C-Reactive Protein Total Protein Albumin Prealbumin LDL Cholesterol Direct HDL Cholesterol Arterial Blood Glucose Arterial Blood Ionized Calcium Urine WBC (Auto) 04/02/20 04/03/20 04/03/20 23:12 05:11 11:11 WBC RBC Hgb Hct MCV MCH RDW Plt Count Lymph % (Auto) [place] % (Auto) Lymph # (Auto) [place] # (Auto) Seg Neutrophils % Seg Neuts % (Manual) Lymphocytes % (Manual) Monocytes % (Manual) Basophils % (Manual) Seg Neutrophils # Seg Neutrophils # Man Lymphocytes # (Manual) Monocytes # (Manual) Eosinophils # (Manual) Basophils # (Manual) PT INR D-Dimer ABG pH POC ABG pCO2 POC ABG pO2 ABG pO2 ABG HCO3 ABG O2 Saturation ABG Base Excess ABG Hemoglobin ABG Oxyhemoglobin ABG Potassium ABG Glucose Oxyhemoglobin Carboxyhemoglobin Sodium Potassium Chloride Carbon Dioxide BUN Creatinine Glucose POC Glucose 130 H 139 H 136 H Calcium Ferritin Total Bilirubin Alkaline Phosphatase Lactate Dehydrogenase Total Creatine Kinase CK-MB (CK-2) Rel Index Troponin T C-Reactive Protein Total Protein Albumin Prealbumin LDL Cholesterol Direct HDL Cholesterol Arterial Blood Glucose Arterial Blood Ionized Calcium Urine WBC (Auto) 04/03/20 04/03/20 04/04/20 16:51 23:25 05:29 WBC RBC Hgb Hct MCV MCH RDW Plt Count Lymph % (Auto) [place] % (Auto) Lymph # (Auto) [place] # (Auto) Seg Neutrophils % Seg Neuts % (Manual) Lymphocytes % (Manual) Monocytes % (Manual) Basophils % (Manual) Seg Neutrophils # Seg Neutrophils # Man Lymphocytes # (Manual) Monocytes # (Manual) Eosinophils # (Manual) Basophils # (Manual) PT INR D-Dimer ABG pH POC ABG pCO2 POC ABG pO2 ABG pO2 ABG HCO3 ABG O2 Saturation ABG Base Excess ABG Hemoglobin ABG Oxyhemoglobin ABG Potassium ABG Glucose Oxyhemoglobin Carboxyhemoglobin Sodium Potassium Chloride Carbon Dioxide BUN Creatinine Glucose POC Glucose 118 H 111 H 126 H Calcium Ferritin Total Bilirubin Alkaline Phosphatase Lactate Dehydrogenase Total Creatine Kinase CK-MB (CK-2) Rel Index Troponin T C-Reactive Protein Total Protein Albumin Prealbumin LDL Cholesterol Direct HDL Cholesterol Arterial Blood Glucose Arterial Blood Ionized Calcium Urine WBC (Auto) 04/04/20 04/04/20 04/04/20 11:47 17:41 23:05 WBC RBC Hgb Hct MCV MCH RDW Plt Count Lymph % (Auto) [place] % (Auto) Lymph # (Auto) [place] # (Auto) Seg Neutrophils % Seg Neuts % (Manual) Lymphocytes % (Manual) Monocytes % (Manual) Basophils % (Manual) Seg Neutrophils # Seg Neutrophils # Man Lymphocytes # (Manual) Monocytes # (Manual) Eosinophils # (Manual) Basophils # (Manual) PT INR D-Dimer ABG pH POC ABG pCO2 POC ABG pO2 ABG pO2 ABG HCO3 ABG O2 Saturation ABG Base Excess ABG Hemoglobin ABG Oxyhemoglobin ABG Potassium ABG Glucose Oxyhemoglobin Carboxyhemoglobin Sodium Potassium Chloride Carbon Dioxide BUN Creatinine Glucose POC Glucose 123 H 120 H 119 H Calcium Ferritin Total Bilirubin Alkaline Phosphatase Lactate Dehydrogenase Total Creatine Kinase CK-MB (CK-2) Rel Index Troponin T C-Reactive Protein Total Protein Albumin Prealbumin LDL Cholesterol Direct HDL Cholesterol Arterial Blood Glucose Arterial Blood Ionized Calcium Urine WBC (Auto) 04/05/20 04/05/20 04/05/20 05:14 12:16 18:48 WBC RBC Hgb Hct MCV MCH RDW Plt Count Lymph % (Auto) [place] % (Auto) Lymph # (Auto) [place] # (Auto) Seg Neutrophils % Seg Neuts % (Manual) Lymphocytes % (Manual) Monocytes % (Manual) Basophils % (Manual) Seg Neutrophils # Seg Neutrophils # Man Lymphocytes # (Manual) Monocytes # (Manual) Eosinophils # (Manual) Basophils # (Manual) PT INR D-Dimer ABG pH POC ABG pCO2 POC ABG pO2 ABG pO2 ABG HCO3 ABG O2 Saturation ABG Base Excess ABG Hemoglobin ABG Oxyhemoglobin ABG Potassium ABG Glucose Oxyhemoglobin Carboxyhemoglobin Sodium Potassium Chloride Carbon Dioxide BUN Creatinine Glucose POC Glucose 123 H 148 H 106 H Calcium Ferritin Total Bilirubin Alkaline Phosphatase Lactate Dehydrogenase Total Creatine Kinase CK-MB (CK-2) Rel Index Troponin T C-Reactive Protein Total Protein Albumin Prealbumin LDL Cholesterol Direct HDL Cholesterol Arterial Blood Glucose Arterial Blood Ionized Calcium Urine WBC (Auto) 04/06/20 04/06/20 04/06/20 00:47 03:26 08:24 WBC RBC Hgb Hct MCV MCH RDW Plt Count Lymph % (Auto) [place] % (Auto) Lymph # (Auto) [place] # (Auto) Seg Neutrophils % Seg Neuts % (Manual) Lymphocytes % (Manual) Monocytes % (Manual) Basophils % (Manual) Seg Neutrophils # Seg Neutrophils # Man Lymphocytes # (Manual) Monocytes # (Manual) Eosinophils # (Manual) Basophils # (Manual) PT INR D-Dimer ABG pH POC ABG pCO2 POC ABG pO2 ABG pO2 ABG HCO3 ABG O2 Saturation ABG Base Excess ABG Hemoglobin ABG Oxyhemoglobin ABG Potassium ABG Glucose Oxyhemoglobin Carboxyhemoglobin Sodium Potassium Chloride Carbon Dioxide BUN Creatinine Glucose POC Glucose 129 H 134 H 131 H Calcium Ferritin Total Bilirubin Alkaline Phosphatase Lactate Dehydrogenase Total Creatine Kinase CK-MB (CK-2) Rel Index Troponin T C-Reactive Protein Total Protein Albumin Prealbumin LDL Cholesterol Direct HDL Cholesterol Arterial Blood Glucose Arterial Blood Ionized Calcium Urine WBC (Auto) 04/06/20 04/06/20 04/06/20 11:16 16:27 23:01 WBC RBC Hgb Hct MCV MCH RDW Plt Count Lymph % (Auto) [place] % (Auto) Lymph # (Auto) [place] # (Auto) Seg Neutrophils % Seg Neuts % (Manual) Lymphocytes % (Manual) Monocytes % (Manual) Basophils % (Manual) Seg Neutrophils # Seg Neutrophils # Man Lymphocytes # (Manual) Monocytes # (Manual) Eosinophils # (Manual) Basophils # (Manual) PT INR D-Dimer ABG pH POC ABG pCO2 POC ABG pO2 ABG pO2 ABG HCO3 ABG O2 Saturation ABG Base Excess ABG Hemoglobin ABG Oxyhemoglobin ABG Potassium ABG Glucose Oxyhemoglobin Carboxyhemoglobin Sodium Potassium Chloride Carbon Dioxide BUN Creatinine Glucose POC Glucose 131 H 107 H 125 H Calcium Ferritin Total Bilirubin Alkaline Phosphatase Lactate Dehydrogenase Total Creatine Kinase CK-MB (CK-2) Rel Index Troponin T C-Reactive Protein Total Protein Albumin Prealbumin LDL Cholesterol Direct HDL Cholesterol Arterial Blood Glucose Arterial Blood Ionized Calcium Urine WBC (Auto) 04/07/20 04/07/20 04/07/20 05:24 12:41 17:40 WBC RBC Hgb Hct MCV MCH RDW Plt Count Lymph % (Auto) [place] % (Auto) Lymph # (Auto) [place] # (Auto) Seg Neutrophils % Seg Neuts % (Manual) Lymphocytes % (Manual) Monocytes % (Manual) Basophils % (Manual) Seg Neutrophils # Seg Neutrophils # Man Lymphocytes # (Manual) Monocytes # (Manual) Eosinophils # (Manual) Basophils # (Manual) PT INR D-Dimer ABG pH POC ABG pCO2 POC ABG pO2 ABG pO2 ABG HCO3 ABG O2 Saturation ABG Base Excess ABG Hemoglobin ABG Oxyhemoglobin ABG Potassium ABG Glucose Oxyhemoglobin Carboxyhemoglobin Sodium Potassium Chloride Carbon Dioxide BUN Creatinine Glucose POC Glucose 125 H 145 H 123 H Calcium Ferritin Total Bilirubin Alkaline Phosphatase Lactate Dehydrogenase Total Creatine Kinase CK-MB (CK-2) Rel Index Troponin T C-Reactive Protein Total Protein Albumin Prealbumin LDL Cholesterol Direct HDL Cholesterol Arterial Blood Glucose Arterial Blood Ionized Calcium Urine WBC (Auto) 04/07/20 04/08/20 04/08/20 23:22 05:40 11:29 WBC RBC Hgb Hct MCV MCH RDW Plt Count Lymph % (Auto) [place] % (Auto) Lymph # (Auto) [place] # (Auto) Seg Neutrophils % Seg Neuts % (Manual) Lymphocytes % (Manual) Monocytes % (Manual) Basophils % (Manual) Seg Neutrophils # Seg Neutrophils # Man Lymphocytes # (Manual) Monocytes # (Manual) Eosinophils # (Manual) Basophils # (Manual) PT INR D-Dimer ABG pH POC ABG pCO2 POC ABG pO2 ABG pO2 ABG HCO3 ABG O2 Saturation ABG Base Excess ABG Hemoglobin ABG Oxyhemoglobin ABG Potassium ABG Glucose Oxyhemoglobin Carboxyhemoglobin Sodium Potassium Chloride Carbon Dioxide BUN Creatinine Glucose POC Glucose 133 H 125 H 116 H Calcium Ferritin Total Bilirubin Alkaline Phosphatase Lactate Dehydrogenase Total Creatine Kinase CK-MB (CK-2) Rel Index Troponin T C-Reactive Protein Total Protein Albumin Prealbumin LDL Cholesterol Direct HDL Cholesterol Arterial Blood Glucose Arterial Blood Ionized Calcium Urine WBC (Auto) 04/08/20 04/09/20 04/09/20 17:43 05:47 12:22 WBC RBC Hgb Hct MCV MCH RDW Plt Count Lymph % (Auto) [place] % (Auto) Lymph # (Auto) [place] # (Auto) Seg Neutrophils % Seg Neuts % (Manual) Lymphocytes % (Manual) Monocytes % (Manual) Basophils % (Manual) Seg Neutrophils # Seg Neutrophils # Man Lymphocytes # (Manual) Monocytes # (Manual) Eosinophils # (Manual) Basophils # (Manual) PT INR D-Dimer ABG pH POC ABG pCO2 POC ABG pO2 ABG pO2 ABG HCO3 ABG O2 Saturation ABG Base Excess ABG Hemoglobin ABG Oxyhemoglobin ABG Potassium ABG Glucose Oxyhemoglobin Carboxyhemoglobin Sodium Potassium Chloride Carbon Dioxide BUN Creatinine Glucose POC Glucose 123 H 108 H 116 H Calcium Ferritin Total Bilirubin Alkaline Phosphatase Lactate Dehydrogenase Total Creatine Kinase CK-MB (CK-2) Rel Index Troponin T C-Reactive Protein Total Protein Albumin Prealbumin LDL Cholesterol Direct HDL Cholesterol Arterial Blood Glucose Arterial Blood Ionized Calcium Urine WBC (Auto) 04/09/20 04/09/20 04/10/20 17:24 23:52 06:10 WBC RBC Hgb Hct MCV MCH RDW Plt Count Lymph % (Auto) [place] % (Auto) Lymph # (Auto) [place] # (Auto) Seg Neutrophils % Seg Neuts % (Manual) Lymphocytes % (Manual) Monocytes % (Manual) Basophils % (Manual) Seg Neutrophils # Seg Neutrophils # Man Lymphocytes # (Manual) Monocytes # (Manual) Eosinophils # (Manual) Basophils # (Manual) PT INR D-Dimer ABG pH POC ABG pCO2 POC ABG pO2 ABG pO2 ABG HCO3 ABG O2 Saturation ABG Base Excess ABG Hemoglobin ABG Oxyhemoglobin ABG Potassium ABG Glucose Oxyhemoglobin Carboxyhemoglobin Sodium Potassium Chloride Carbon Dioxide BUN Creatinine Glucose POC Glucose 108 H 126 H 122 H Calcium Ferritin Total Bilirubin Alkaline Phosphatase Lactate Dehydrogenase Total Creatine Kinase CK-MB (CK-2) Rel Index Troponin T C-Reactive Protein Total Protein Albumin Prealbumin LDL Cholesterol Direct HDL Cholesterol Arterial Blood Glucose Arterial Blood Ionized Calcium Urine WBC (Auto) 04/10/20 04/10/20 04/10/20 11:27 18:11 23:24 WBC RBC Hgb Hct MCV MCH RDW Plt Count Lymph % (Auto) [place] % (Auto) Lymph # (Auto) [place] # (Auto) Seg Neutrophils % Seg Neuts % (Manual) Lymphocytes % (Manual) Monocytes % (Manual) Basophils % (Manual) Seg Neutrophils # Seg Neutrophils # Man Lymphocytes # (Manual) Monocytes # (Manual) Eosinophils # (Manual) Basophils # (Manual) PT INR D-Dimer ABG pH POC ABG pCO2 POC ABG pO2 ABG pO2 ABG HCO3 ABG O2 Saturation ABG Base Excess ABG Hemoglobin ABG Oxyhemoglobin ABG Potassium ABG Glucose Oxyhemoglobin Carboxyhemoglobin Sodium Potassium Chloride Carbon Dioxide BUN Creatinine Glucose POC Glucose 129 H 125 H 107 H Calcium Ferritin Total Bilirubin Alkaline Phosphatase Lactate Dehydrogenase Total Creatine Kinase CK-MB (CK-2) Rel Index Troponin T C-Reactive Protein Total Protein Albumin Prealbumin LDL Cholesterol Direct HDL Cholesterol Arterial Blood Glucose Arterial Blood Ionized Calcium Urine WBC (Auto) 04/11/20 04/11/20 04/11/20 05:28 11:46 23:49 WBC RBC Hgb Hct MCV MCH RDW Plt Count Lymph % (Auto) [place] % (Auto) Lymph # (Auto) [place] # (Auto) Seg Neutrophils % Seg Neuts % (Manual) Lymphocytes % (Manual) Monocytes % (Manual) Basophils % (Manual) Seg Neutrophils # Seg Neutrophils # Man Lymphocytes # (Manual) Monocytes # (Manual) Eosinophils # (Manual) Basophils # (Manual) PT INR D-Dimer ABG pH POC ABG pCO2 POC ABG pO2 ABG pO2 ABG HCO3 ABG O2 Saturation ABG Base Excess ABG Hemoglobin ABG Oxyhemoglobin ABG Potassium ABG Glucose Oxyhemoglobin Carboxyhemoglobin Sodium Potassium Chloride Carbon Dioxide BUN Creatinine Glucose POC Glucose 122 H 122 H 116 H Calcium Ferritin Total Bilirubin Alkaline Phosphatase Lactate Dehydrogenase Total Creatine Kinase CK-MB (CK-2) Rel Index Troponin T C-Reactive Protein Total Protein Albumin Prealbumin LDL Cholesterol Direct HDL Cholesterol Arterial Blood Glucose Arterial Blood Ionized Calcium Urine WBC (Auto) 04/12/20 04/12/20 04/12/20 09:07 09:07 11:39 WBC 13.1 H RBC 3.59 L Hgb 9.5 L Hct 29.8 L MCV 83 L MCH 26 L RDW 16.6 H Plt Count 591 H Lymph % (Auto) [place] % (Auto) Lymph # (Auto) [place] # (Auto) Seg Neutrophils % Seg Neuts % (Manual) 86.0 H Lymphocytes % (Manual) 7.0 L Monocytes % (Manual) Basophils % (Manual) Seg Neutrophils # Seg Neutrophils # Man 11.3 H Lymphocytes # (Manual) 0.9 L Monocytes # (Manual) Eosinophils # (Manual) Basophils # (Manual) PT INR D-Dimer ABG pH POC ABG pCO2 POC ABG pO2 ABG pO2 ABG HCO3 ABG O2 Saturation ABG Base Excess ABG Hemoglobin ABG Oxyhemoglobin ABG Potassium ABG Glucose Oxyhemoglobin Carboxyhemoglobin Sodium Potassium Chloride Carbon Dioxide 36 H BUN Creatinine < 0.2 L Glucose 132 H POC Glucose 136 H Calcium Ferritin Total Bilirubin Alkaline Phosphatase Lactate Dehydrogenase Total Creatine Kinase CK-MB (CK-2) Rel Index Troponin T C-Reactive Protein Total Protein Albumin 2.7 L Prealbumin LDL Cholesterol Direct HDL Cholesterol Arterial Blood Glucose Arterial Blood Ionized Calcium Urine WBC (Auto) 04/12/20 04/12/20 04/13/20 18:13 23:07 05:45 WBC RBC Hgb Hct MCV MCH RDW Plt Count Lymph % (Auto) [place] % (Auto) Lymph # (Auto) [place] # (Auto) Seg Neutrophils % Seg Neuts % (Manual) Lymphocytes % (Manual) Monocytes % (Manual) Basophils % (Manual) Seg Neutrophils # Seg Neutrophils # Man Lymphocytes # (Manual) Monocytes # (Manual) Eosinophils # (Manual) Basophils # (Manual) PT INR D-Dimer ABG pH POC ABG pCO2 POC ABG pO2 ABG pO2 ABG HCO3 ABG O2 Saturation ABG Base Excess ABG Hemoglobin ABG Oxyhemoglobin ABG Potassium ABG Glucose Oxyhemoglobin Carboxyhemoglobin Sodium Potassium Chloride Carbon Dioxide BUN Creatinine Glucose POC Glucose 107 H 106 H 125 H Calcium Ferritin Total Bilirubin Alkaline Phosphatase Lactate Dehydrogenase Total Creatine Kinase CK-MB (CK-2) Rel Index Troponin T C-Reactive Protein Total Protein Albumin Prealbumin LDL Cholesterol Direct HDL Cholesterol Arterial Blood Glucose Arterial Blood Ionized Calcium Urine WBC (Auto) 04/13/20 04/13/20 04/13/20 11:18 17:56 23:33 WBC RBC Hgb Hct MCV MCH RDW Plt Count Lymph % (Auto) [place] % (Auto) Lymph # (Auto) [place] # (Auto) Seg Neutrophils % Seg Neuts % (Manual) Lymphocytes % (Manual) Monocytes % (Manual) Basophils % (Manual) Seg Neutrophils # Seg Neutrophils # Man Lymphocytes # (Manual) Monocytes # (Manual) Eosinophils # (Manual) Basophils # (Manual) PT INR D-Dimer ABG pH POC ABG pCO2 POC ABG pO2 ABG pO2 ABG HCO3 ABG O2 Saturation ABG Base Excess ABG Hemoglobin ABG Oxyhemoglobin ABG Potassium ABG Glucose Oxyhemoglobin Carboxyhemoglobin Sodium Potassium Chloride Carbon Dioxide BUN Creatinine Glucose POC Glucose 133 H 110 H 114 H Calcium Ferritin Total Bilirubin Alkaline Phosphatase Lactate Dehydrogenase Total Creatine Kinase CK-MB (CK-2) Rel Index Troponin T C-Reactive Protein Total Protein Albumin Prealbumin LDL Cholesterol Direct HDL Cholesterol Arterial Blood Glucose Arterial Blood Ionized Calcium Urine WBC (Auto) 04/14/20 04/14/20 04/14/20 05:58 11:45 17:48 WBC RBC Hgb Hct MCV MCH RDW Plt Count Lymph % (Auto) [place] % (Auto) Lymph # (Auto) [place] # (Auto) Seg Neutrophils % Seg Neuts % (Manual) Lymphocytes % (Manual) Monocytes % (Manual) Basophils % (Manual) Seg Neutrophils # Seg Neutrophils # Man Lymphocytes # (Manual) Monocytes # (Manual) Eosinophils # (Manual) Basophils # (Manual) PT INR D-Dimer ABG pH POC ABG pCO2 POC ABG pO2 ABG pO2 ABG HCO3 ABG O2 Saturation ABG Base Excess ABG Hemoglobin ABG Oxyhemoglobin ABG Potassium ABG Glucose Oxyhemoglobin Carboxyhemoglobin Sodium Potassium Chloride Carbon Dioxide BUN Creatinine Glucose POC Glucose 115 H 122 H 124 H Calcium Ferritin Total Bilirubin Alkaline Phosphatase Lactate Dehydrogenase Total Creatine Kinase CK-MB (CK-2) Rel Index Troponin T C-Reactive Protein Total Protein Albumin Prealbumin LDL Cholesterol Direct HDL Cholesterol Arterial Blood Glucose Arterial Blood Ionized Calcium Urine WBC (Auto) 04/15/20 04/15/20 04/15/20 00:11 05:38 11:31 WBC RBC Hgb Hct MCV MCH RDW Plt Count Lymph % (Auto) [place] % (Auto) Lymph # (Auto) [place] # (Auto) Seg Neutrophils % Seg Neuts % (Manual) Lymphocytes % (Manual) Monocytes % (Manual) Basophils % (Manual) Seg Neutrophils # Seg Neutrophils # Man Lymphocytes # (Manual) Monocytes # (Manual) Eosinophils # (Manual) Basophils # (Manual) PT INR D-Dimer ABG pH POC ABG pCO2 POC ABG pO2 ABG pO2 ABG HCO3 ABG O2 Saturation ABG Base Excess ABG Hemoglobin ABG Oxyhemoglobin ABG Potassium ABG Glucose Oxyhemoglobin Carboxyhemoglobin Sodium Potassium Chloride Carbon Dioxide BUN Creatinine Glucose POC Glucose 120 H 109 H 123 H Calcium Ferritin Total Bilirubin Alkaline Phosphatase Lactate Dehydrogenase Total Creatine Kinase CK-MB (CK-2) Rel Index Troponin T C-Reactive Protein Total Protein Albumin Prealbumin LDL Cholesterol Direct HDL Cholesterol Arterial Blood Glucose Arterial Blood Ionized Calcium Urine WBC (Auto) 04/15/20 04/16/20 04/16/20 17:35 06:00 11:29 WBC RBC Hgb Hct MCV MCH RDW Plt Count Lymph % (Auto) [place] % (Auto) Lymph # (Auto) [place] # (Auto) Seg Neutrophils % Seg Neuts % (Manual) Lymphocytes % (Manual) Monocytes % (Manual) Basophils % (Manual) Seg Neutrophils # Seg Neutrophils # Man Lymphocytes # (Manual) Monocytes # (Manual) Eosinophils # (Manual) Basophils # (Manual) PT INR D-Dimer ABG pH POC ABG pCO2 POC ABG pO2 ABG pO2 ABG HCO3 ABG O2 Saturation ABG Base Excess ABG Hemoglobin ABG Oxyhemoglobin ABG Potassium ABG Glucose Oxyhemoglobin Carboxyhemoglobin Sodium Potassium Chloride Carbon Dioxide BUN Creatinine Glucose POC Glucose 111 H 142 H 108 H Calcium Ferritin Total Bilirubin Alkaline Phosphatase Lactate Dehydrogenase Total Creatine Kinase CK-MB (CK-2) Rel Index Troponin T C-Reactive Protein Total Protein Albumin Prealbumin LDL Cholesterol Direct HDL Cholesterol Arterial Blood Glucose Arterial Blood Ionized Calcium Urine WBC (Auto) 04/17/20 04/17/20 04/17/20 05:09 06:53 06:53 WBC 14.2 H RBC Hgb 10.1 L Hct 31.5 L MCV MCH 27 L RDW 17.2 H Plt Count 643 H Lymph % (Auto) [place] % (Auto) Lymph # (Auto) [place] # (Auto) Seg Neutrophils % Seg Neuts % (Manual) Lymphocytes % (Manual) Monocytes % (Manual) Basophils % (Manual) Seg Neutrophils # Seg Neutrophils # Man Lymphocytes # (Manual) Monocytes # (Manual) Eosinophils # (Manual) Basophils # (Manual) PT INR D-Dimer ABG pH POC ABG pCO2 POC ABG pO2 ABG pO2 ABG HCO3 ABG O2 Saturation ABG Base Excess ABG Hemoglobin ABG Oxyhemoglobin ABG Potassium ABG Glucose Oxyhemoglobin Carboxyhemoglobin Sodium Potassium Chloride 97.7 L Carbon Dioxide 38 H BUN Creatinine < 0.2 L Glucose 126 H POC Glucose 131 H Calcium Ferritin Total Bilirubin Alkaline Phosphatase Lactate Dehydrogenase Total Creatine Kinase CK-MB (CK-2) Rel Index Troponin T C-Reactive Protein Total Protein Albumin Prealbumin LDL Cholesterol Direct HDL Cholesterol Arterial Blood Glucose Arterial Blood Ionized Calcium Urine WBC (Auto) 04/17/20 04/18/20 04/18/20 11:21 00:23 04:01 WBC 15.3 H RBC Hgb 10.1 L Hct 31.9 L MCV 82 L MCH 26 L RDW 17.2 H Plt Count 665 H Lymph % (Auto) 12.9 L [place] % (Auto) Lymph # (Auto) [place] # (Auto) 1.1 H Seg Neutrophils % 78.0 H Seg Neuts % (Manual) Lymphocytes % (Manual) Monocytes % (Manual) Basophils % (Manual) Seg Neutrophils # 11.9 H Seg Neutrophils # Man Lymphocytes # (Manual) Monocytes # (Manual) Eosinophils # (Manual) Basophils # (Manual) PT INR D-Dimer ABG pH POC ABG pCO2 POC ABG pO2 ABG pO2 ABG HCO3 ABG O2 Saturation ABG Base Excess ABG Hemoglobin ABG Oxyhemoglobin ABG Potassium ABG Glucose Oxyhemoglobin Carboxyhemoglobin Sodium Potassium Chloride Carbon Dioxide BUN Creatinine Glucose POC Glucose 140 H 125 H Calcium Ferritin Total Bilirubin Alkaline Phosphatase Lactate Dehydrogenase Total Creatine Kinase CK-MB (CK-2) Rel Index Troponin T C-Reactive Protein Total Protein Albumin Prealbumin LDL Cholesterol Direct HDL Cholesterol Arterial Blood Glucose Arterial Blood Ionized Calcium Urine WBC (Auto) 04/18/20 04/18/20 04/18/20 04:01 11:29 17:30 WBC RBC Hgb Hct MCV MCH RDW Plt Count Lymph % (Auto) [place] % (Auto) Lymph # (Auto) [place] # (Auto) Seg Neutrophils % Seg Neuts % (Manual) Lymphocytes % (Manual) Monocytes % (Manual) Basophils % (Manual) Seg Neutrophils # Seg Neutrophils # Man Lymphocytes # (Manual) Monocytes # (Manual) Eosinophils # (Manual) Basophils # (Manual) PT INR D-Dimer ABG pH POC ABG pCO2 POC ABG pO2 ABG pO2 ABG HCO3 ABG O2 Saturation ABG Base Excess ABG Hemoglobin ABG Oxyhemoglobin ABG Potassium ABG Glucose Oxyhemoglobin Carboxyhemoglobin Sodium Potassium Chloride 97.0 L Carbon Dioxide 38 H BUN Creatinine < 0.2 L Glucose 117 H POC Glucose 136 H 107 H Calcium Ferritin Total Bilirubin Alkaline Phosphatase Lactate Dehydrogenase Total Creatine Kinase CK-MB (CK-2) Rel Index Troponin T C-Reactive Protein Total Protein Albumin Prealbumin LDL Cholesterol Direct HDL Cholesterol Arterial Blood Glucose Arterial Blood Ionized Calcium Urine WBC (Auto) 04/18/20 04/19/20 04/19/20 23:19 06:51 06:51 WBC 12.2 H RBC Hgb 9.8 L Hct 31.1 L MCV 82 L MCH 26 L RDW 17.2 H Plt Count 549 H Lymph % (Auto) 6.5 L [place] % (Auto) Lymph # (Auto) 0.8 L [place] # (Auto) Seg Neutrophils % 86.7 H Seg Neuts % (Manual) Lymphocytes % (Manual) Monocytes % (Manual) Basophils % (Manual) Seg Neutrophils # 10.6 H Seg Neutrophils # Man Lymphocytes # (Manual) Monocytes # (Manual) Eosinophils # (Manual) Basophils # (Manual) PT INR D-Dimer ABG pH POC ABG pCO2 POC ABG pO2 ABG pO2 ABG HCO3 ABG O2 Saturation ABG Base Excess ABG Hemoglobin ABG Oxyhemoglobin ABG Potassium ABG Glucose Oxyhemoglobin Carboxyhemoglobin Sodium Potassium Chloride 97.8 L Carbon Dioxide 38 H BUN Creatinine < 0.2 L Glucose 123 H POC Glucose 127 H Calcium Ferritin Total Bilirubin Alkaline Phosphatase Lactate Dehydrogenase Total Creatine Kinase CK-MB (CK-2) Rel Index Troponin T C-Reactive Protein Total Protein Albumin Prealbumin LDL Cholesterol Direct HDL Cholesterol Arterial Blood Glucose Arterial Blood Ionized Calcium Urine WBC (Auto) 04/19/20 04/19/20 04/20/20 13:41 18:33 05:56 WBC RBC Hgb Hct MCV MCH RDW Plt Count Lymph % (Auto) [place] % (Auto) Lymph # (Auto) [place] # (Auto) Seg Neutrophils % Seg Neuts % (Manual) Lymphocytes % (Manual) Monocytes % (Manual) Basophils % (Manual) Seg Neutrophils # Seg Neutrophils # Man Lymphocytes # (Manual) Monocytes # (Manual) Eosinophils # (Manual) Basophils # (Manual) PT INR D-Dimer ABG pH POC ABG pCO2 POC ABG pO2 ABG pO2 ABG HCO3 ABG O2 Saturation ABG Base Excess ABG Hemoglobin ABG Oxyhemoglobin ABG Potassium ABG Glucose Oxyhemoglobin Carboxyhemoglobin Sodium Potassium Chloride Carbon Dioxide BUN Creatinine Glucose POC Glucose 116 H 124 H 130 H Calcium Ferritin Total Bilirubin Alkaline Phosphatase Lactate Dehydrogenase Total Creatine Kinase CK-MB (CK-2) Rel Index Troponin T C-Reactive Protein Total Protein Albumin Prealbumin LDL Cholesterol Direct HDL Cholesterol Arterial Blood Glucose Arterial Blood Ionized Calcium Urine WBC (Auto) 04/20/20 04/20/20 04/20/20 06:28 06:28 11:46 WBC RBC Hgb 10.2 L Hct 31.5 L MCV 82 L MCH 27 L RDW 17.1 H Plt Count 546 H Lymph % (Auto) 10.0 L [place] % (Auto) 9.8 H Lymph # (Auto) 1.1 L [place] # (Auto) 1.1 H Seg Neutrophils % 78.4 H Seg Neuts % (Manual) Lymphocytes % (Manual) Monocytes % (Manual) Basophils % (Manual) Seg Neutrophils # 8.5 H Seg Neutrophils # Man Lymphocytes # (Manual) Monocytes # (Manual) Eosinophils # (Manual) Basophils # (Manual) PT INR D-Dimer ABG pH POC ABG pCO2 POC ABG pO2 ABG pO2 ABG HCO3 ABG O2 Saturation ABG Base Excess ABG Hemoglobin ABG Oxyhemoglobin ABG Potassium ABG Glucose Oxyhemoglobin Carboxyhemoglobin Sodium Potassium Chloride 97.0 L Carbon Dioxide 38 H BUN Creatinine < 0.2 L Glucose 138 H POC Glucose 130 H Calcium Ferritin Total Bilirubin Alkaline Phosphatase Lactate Dehydrogenase Total Creatine Kinase CK-MB (CK-2) Rel Index Troponin T C-Reactive Protein Total Protein Albumin Prealbumin LDL Cholesterol Direct HDL Cholesterol Arterial Blood Glucose Arterial Blood Ionized Calcium Urine WBC (Auto) 04/20/20 04/21/20 04/21/20 23:31 05:55 05:55 WBC RBC Hgb 10.0 L Hct 31.1 L MCV 82 L MCH 26 L RDW 17.0 H Plt Count 535 H Lymph % (Auto) [place] % (Auto) 9.2 H Lymph # (Auto) 1.1 L [place] # (Auto) Seg Neutrophils % 75.4 H Seg Neuts % (Manual) Lymphocytes % (Manual) Monocytes % (Manual) Basophils % (Manual) Seg Neutrophils # Seg Neutrophils # Man Lymphocytes # (Manual) Monocytes # (Manual) Eosinophils # (Manual) Basophils # (Manual) PT INR D-Dimer ABG pH POC ABG pCO2 POC ABG pO2 ABG pO2 ABG HCO3 ABG O2 Saturation ABG Base Excess ABG Hemoglobin ABG Oxyhemoglobin ABG Potassium ABG Glucose Oxyhemoglobin Carboxyhemoglobin Sodium Potassium Chloride 95.0 L Carbon Dioxide 34 H BUN Creatinine < 0.2 L Glucose 125 H POC Glucose 116 H Calcium Ferritin Total Bilirubin Alkaline Phosphatase Lactate Dehydrogenase Total Creatine Kinase CK-MB (CK-2) Rel Index Troponin T C-Reactive Protein Total Protein Albumin Prealbumin LDL Cholesterol Direct HDL Cholesterol Arterial Blood Glucose Arterial Blood Ionized Calcium Urine WBC (Auto) 04/22/20 04/22/20 04/22/20 00:01 07:45 07:45 WBC RBC Hgb 10.0 L Hct 30.7 L MCV 81 L MCH 27 L RDW 17.1 H Plt Count 490 H Lymph % (Auto) [place] % (Auto) Lymph # (Auto) [place] # (Auto) Seg Neutrophils % Seg Neuts % (Manual) 75.0 H Lymphocytes % (Manual) 11.0 L Monocytes % (Manual) 9.0 H Basophils % (Manual) Seg Neutrophils # Seg Neutrophils # Man Lymphocytes # (Manual) 0.8 L Monocytes # (Manual) Eosinophils # (Manual) Basophils # (Manual) PT INR D-Dimer ABG pH POC ABG pCO2 POC ABG pO2 ABG pO2 ABG HCO3 ABG O2 Saturation ABG Base Excess ABG Hemoglobin ABG Oxyhemoglobin ABG Potassium ABG Glucose Oxyhemoglobin Carboxyhemoglobin Sodium Potassium Chloride 96.3 L Carbon Dioxide 40 H BUN Creatinine < 0.2 L Glucose 109 H POC Glucose 110 H Calcium Ferritin Total Bilirubin Alkaline Phosphatase Lactate Dehydrogenase Total Creatine Kinase CK-MB (CK-2) Rel Index Troponin T C-Reactive Protein Total Protein Albumin Prealbumin LDL Cholesterol Direct HDL Cholesterol Arterial Blood Glucose Arterial Blood Ionized Calcium Urine WBC (Auto) 04/23/20 04/23/20 04/23/20 04:28 04:28 04:28 WBC RBC 3.64 L Hgb 9.7 L Hct 29.4 L MCV 81 L MCH 27 L RDW 17.2 H Plt Count 527 H Lymph % (Auto) [place] % (Auto) 8.9 H Lymph # (Auto) [place] # (Auto) Seg Neutrophils % Seg Neuts % (Manual) Lymphocytes % (Manual) Monocytes % (Manual) Basophils % (Manual) Seg Neutrophils # Seg Neutrophils # Man Lymphocytes # (Manual) Monocytes # (Manual) Eosinophils # (Manual) Basophils # (Manual) PT INR D-Dimer ABG pH POC ABG pCO2 POC ABG pO2 ABG pO2 ABG HCO3 ABG O2 Saturation ABG Base Excess ABG Hemoglobin ABG Oxyhemoglobin ABG Potassium ABG Glucose Oxyhemoglobin Carboxyhemoglobin Sodium Potassium Chloride 96.4 L Carbon Dioxide 32 H D BUN Creatinine < 0.2 L Glucose 134 H POC Glucose Calcium Ferritin Total Bilirubin Alkaline Phosphatase Lactate Dehydrogenase Total Creatine Kinase CK-MB (CK-2) Rel Index Troponin T 0.151 H* C-Reactive Protein Total Protein Albumin Prealbumin LDL Cholesterol Direct HDL Cholesterol 29 L Arterial Blood Glucose Arterial Blood Ionized Calcium Urine WBC (Auto) 04/23/20 04/23/20 04/24/20 06:03 23:41 05:28 WBC RBC 3.56 L Hgb 9.5 L Hct 28.9 L MCV 81 L MCH 27 L RDW 17.4 H Plt Count 462 H Lymph % (Auto) [place] % (Auto) Lymph # (Auto) [place] # (Auto) Seg Neutrophils % Seg Neuts % (Manual) 80.0 H Lymphocytes % (Manual) Monocytes % (Manual) Basophils % (Manual) Seg Neutrophils # Seg Neutrophils # Man Lymphocytes # (Manual) Monocytes # (Manual) Eosinophils # (Manual) Basophils # (Manual) PT INR D-Dimer ABG pH POC ABG pCO2 POC ABG pO2 ABG pO2 ABG HCO3 ABG O2 Saturation ABG Base Excess ABG Hemoglobin ABG Oxyhemoglobin ABG Potassium ABG Glucose Oxyhemoglobin Carboxyhemoglobin Sodium Potassium Chloride Carbon Dioxide BUN Creatinine Glucose POC Glucose 132 H 117 H Calcium Ferritin Total Bilirubin Alkaline Phosphatase Lactate Dehydrogenase Total Creatine Kinase CK-MB (CK-2) Rel Index Troponin T C-Reactive Protein Total Protein Albumin Prealbumin LDL Cholesterol Direct HDL Cholesterol Arterial Blood Glucose Arterial Blood Ionized Calcium Urine WBC (Auto) 04/24/20 04/24/20 04/24/20 05:28 05:28 05:33 WBC RBC Hgb Hct MCV MCH RDW Plt Count Lymph % (Auto) [place] % (Auto) Lymph # (Auto) [place] # (Auto) Seg Neutrophils % Seg Neuts % (Manual) Lymphocytes % (Manual) Monocytes % (Manual) Basophils % (Manual) Seg Neutrophils # Seg Neutrophils # Man Lymphocytes # (Manual) Monocytes # (Manual) Eosinophils # (Manual) Basophils # (Manual) PT INR D-Dimer ABG pH POC ABG pCO2 POC ABG pO2 ABG pO2 ABG HCO3 ABG O2 Saturation ABG Base Excess ABG Hemoglobin ABG Oxyhemoglobin ABG Potassium ABG Glucose Oxyhemoglobin Carboxyhemoglobin Sodium Potassium Chloride 96.1 L Carbon Dioxide 40 H D BUN Creatinine < 0.2 L Glucose 115 H POC Glucose 109 H Calcium Ferritin Total Bilirubin Alkaline Phosphatase Lactate Dehydrogenase Total Creatine Kinase CK-MB (CK-2) Rel Index Troponin T 0.181 H* C-Reactive Protein Total Protein Albumin Prealbumin LDL Cholesterol Direct HDL Cholesterol Arterial Blood Glucose Arterial Blood Ionized Calcium Urine WBC (Auto) 04/24/20 04/24/20 04/25/20 11:17 18:23 00:12 WBC RBC Hgb Hct MCV MCH RDW Plt Count Lymph % (Auto) [place] % (Auto) Lymph # (Auto) [place] # (Auto) Seg Neutrophils % Seg Neuts % (Manual) Lymphocytes % (Manual) Monocytes % (Manual) Basophils % (Manual) Seg Neutrophils # Seg Neutrophils # Man Lymphocytes # (Manual) Monocytes # (Manual) Eosinophils # (Manual) Basophils # (Manual) PT INR D-Dimer ABG pH POC ABG pCO2 POC ABG pO2 ABG pO2 ABG HCO3 ABG O2 Saturation ABG Base Excess ABG Hemoglobin ABG Oxyhemoglobin ABG Potassium ABG Glucose Oxyhemoglobin Carboxyhemoglobin Sodium Potassium Chloride Carbon Dioxide BUN Creatinine Glucose POC Glucose 117 H 109 H 113 H Calcium Ferritin Total Bilirubin Alkaline Phosphatase Lactate Dehydrogenase Total Creatine Kinase CK-MB (CK-2) Rel Index Troponin T C-Reactive Protein Total Protein Albumin Prealbumin LDL Cholesterol Direct HDL Cholesterol Arterial Blood Glucose Arterial Blood Ionized Calcium Urine WBC (Auto) 04/25/20 04/25/20 04/25/20 06:34 06:34 11:28 WBC 11.7 H RBC Hgb 10.0 L Hct 31.7 L MCV 82 L MCH 26 L RDW 17.5 H Plt Count 564 H Lymph % (Auto) [place] % (Auto) Lymph # (Auto) [place] # (Auto) Seg Neutrophils % Seg Neuts % (Manual) 78.0 H Lymphocytes % (Manual) 10.0 L Monocytes % (Manual) 9.0 H Basophils % (Manual) Seg Neutrophils # Seg Neutrophils # Man 9.1 H Lymphocytes # (Manual) Monocytes # (Manual) 1.1 H Eosinophils # (Manual) Basophils # (Manual) PT INR D-Dimer ABG pH POC ABG pCO2 POC ABG pO2 ABG pO2 ABG HCO3 ABG O2 Saturation ABG Base Excess ABG Hemoglobin ABG Oxyhemoglobin ABG Potassium ABG Glucose Oxyhemoglobin Carboxyhemoglobin Sodium Potassium Chloride Carbon Dioxide 39 H BUN Creatinine < 0.2 L Glucose 103 H POC Glucose 112 H Calcium Ferritin Total Bilirubin Alkaline Phosphatase Lactate Dehydrogenase Total Creatine Kinase CK-MB (CK-2) Rel Index Troponin T C-Reactive Protein Total Protein Albumin Prealbumin LDL Cholesterol Direct HDL Cholesterol Arterial Blood Glucose Arterial Blood Ionized Calcium Urine WBC (Auto) 04/27/20 04/27/20 04/27/20 11:48 17:08 23:31 WBC RBC Hgb Hct MCV MCH RDW Plt Count Lymph % (Auto) [place] % (Auto) Lymph # (Auto) [place] # (Auto) Seg Neutrophils % Seg Neuts % (Manual) Lymphocytes % (Manual) Monocytes % (Manual) Basophils % (Manual) Seg Neutrophils # Seg Neutrophils # Man Lymphocytes # (Manual) Monocytes # (Manual) Eosinophils # (Manual) Basophils # (Manual) PT INR D-Dimer ABG pH POC ABG pCO2 POC ABG pO2 ABG pO2 ABG HCO3 ABG O2 Saturation ABG Base Excess ABG Hemoglobin ABG Oxyhemoglobin ABG Potassium ABG Glucose Oxyhemoglobin Carboxyhemoglobin Sodium Potassium Chloride Carbon Dioxide BUN Creatinine Glucose POC Glucose 124 H 118 H 122 H Calcium Ferritin Total Bilirubin Alkaline Phosphatase Lactate Dehydrogenase Total Creatine Kinase CK-MB (CK-2) Rel Index Troponin T C-Reactive Protein Total Protein Albumin Prealbumin LDL Cholesterol Direct HDL Cholesterol Arterial Blood Glucose Arterial Blood Ionized Calcium Urine WBC (Auto) 04/28/20 04/29/20 04/29/20 05:42 00:14 05:30 WBC RBC Hgb Hct MCV MCH RDW Plt Count Lymph % (Auto) [place] % (Auto) Lymph # (Auto) [place] # (Auto) Seg Neutrophils % Seg Neuts % (Manual) Lymphocytes % (Manual) Monocytes % (Manual) Basophils % (Manual) Seg Neutrophils # Seg Neutrophils # Man Lymphocytes # (Manual) Monocytes # (Manual) Eosinophils # (Manual) Basophils # (Manual) PT INR D-Dimer ABG pH POC ABG pCO2 POC ABG pO2 ABG pO2 ABG HCO3 ABG O2 Saturation ABG Base Excess ABG Hemoglobin ABG Oxyhemoglobin ABG Potassium ABG Glucose Oxyhemoglobin Carboxyhemoglobin Sodium Potassium Chloride Carbon Dioxide BUN Creatinine Glucose POC Glucose 122 H 115 H 123 H Calcium Ferritin Total Bilirubin Alkaline Phosphatase Lactate Dehydrogenase Total Creatine Kinase CK-MB (CK-2) Rel Index Troponin T C-Reactive Protein Total Protein Albumin Prealbumin LDL Cholesterol Direct HDL Cholesterol Arterial Blood Glucose Arterial Blood Ionized Calcium Urine WBC (Auto) 04/30/20 05/01/20 05/01/20 00:29 05:39 12:30 WBC RBC Hgb Hct MCV MCH RDW Plt Count Lymph % (Auto) [place] % (Auto) Lymph # (Auto) [place] # (Auto) Seg Neutrophils % Seg Neuts % (Manual) Lymphocytes % (Manual) Monocytes % (Manual) Basophils % (Manual) Seg Neutrophils # Seg Neutrophils # Man Lymphocytes # (Manual) Monocytes # (Manual) Eosinophils # (Manual) Basophils # (Manual) PT INR D-Dimer ABG pH POC ABG pCO2 POC ABG pO2 ABG pO2 ABG HCO3 ABG O2 Saturation ABG Base Excess ABG Hemoglobin ABG Oxyhemoglobin ABG Potassium ABG Glucose Oxyhemoglobin Carboxyhemoglobin Sodium Potassium Chloride Carbon Dioxide BUN Creatinine Glucose POC Glucose 106 H 109 H 108 H Calcium Ferritin Total Bilirubin Alkaline Phosphatase Lactate Dehydrogenase Total Creatine Kinase CK-MB (CK-2) Rel Index Troponin T C-Reactive Protein Total Protein Albumin Prealbumin LDL Cholesterol Direct HDL Cholesterol Arterial Blood Glucose Arterial Blood Ionized Calcium Urine WBC (Auto) 05/01/20 05/03/20 05/03/20 23:35 05:09 11:36 WBC RBC Hgb Hct MCV MCH RDW Plt Count Lymph % (Auto) [place] % (Auto) Lymph # (Auto) [place] # (Auto) Seg Neutrophils % Seg Neuts % (Manual) Lymphocytes % (Manual) Monocytes % (Manual) Basophils % (Manual) Seg Neutrophils # Seg Neutrophils # Man Lymphocytes # (Manual) Monocytes # (Manual) Eosinophils # (Manual) Basophils # (Manual) PT INR D-Dimer ABG pH POC ABG pCO2 POC ABG pO2 ABG pO2 ABG HCO3 ABG O2 Saturation ABG Base Excess ABG Hemoglobin ABG Oxyhemoglobin ABG Potassium ABG Glucose Oxyhemoglobin Carboxyhemoglobin Sodium Potassium Chloride Carbon Dioxide BUN Creatinine Glucose POC Glucose 116 H 117 H 116 H Calcium Ferritin Total Bilirubin Alkaline Phosphatase Lactate Dehydrogenase Total Creatine Kinase CK-MB (CK-2) Rel Index Troponin T C-Reactive Protein Total Protein Albumin Prealbumin LDL Cholesterol Direct HDL Cholesterol Arterial Blood Glucose Arterial Blood Ionized Calcium Urine WBC (Auto) 05/03/20 05/03/20 05/03/20 14:06 14:06 23:39 WBC 12.5 H RBC Hgb 10.0 L Hct 31.2 L MCV 80 L MCH 26 L RDW 17.6 H Plt Count 488 H Lymph % (Auto) [place] % (Auto) Lymph # (Auto) [place] # (Auto) Seg Neutrophils % Seg Neuts % (Manual) Lymphocytes % (Manual) Monocytes % (Manual) Basophils % (Manual) Seg Neutrophils # Seg Neutrophils # Man Lymphocytes # (Manual) Monocytes # (Manual) Eosinophils # (Manual) Basophils # (Manual) PT INR D-Dimer ABG pH POC ABG pCO2 POC ABG pO2 ABG pO2 ABG HCO3 ABG O2 Saturation ABG Base Excess ABG Hemoglobin ABG Oxyhemoglobin ABG Potassium ABG Glucose Oxyhemoglobin Carboxyhemoglobin Sodium Potassium Chloride 95.4 L Carbon Dioxide 40 H BUN Creatinine < 0.2 L Glucose 121 H POC Glucose 107 H Calcium Ferritin Total Bilirubin Alkaline Phosphatase Lactate Dehydrogenase Total Creatine Kinase CK-MB (CK-2) Rel Index Troponin T C-Reactive Protein Total Protein Albumin Prealbumin LDL Cholesterol Direct HDL Cholesterol Arterial Blood Glucose Arterial Blood Ionized Calcium Urine WBC (Auto) 05/04/20 05/04/20 05/04/20 11:31 16:57 23:18 WBC RBC Hgb Hct MCV MCH RDW Plt Count Lymph % (Auto) [place] % (Auto) Lymph # (Auto) [place] # (Auto) Seg Neutrophils % Seg Neuts % (Manual) Lymphocytes % (Manual) Monocytes % (Manual) Basophils % (Manual) Seg Neutrophils # Seg Neutrophils # Man Lymphocytes # (Manual) Monocytes # (Manual) Eosinophils # (Manual) Basophils # (Manual) PT INR D-Dimer ABG pH POC ABG pCO2 POC ABG pO2 ABG pO2 ABG HCO3 ABG O2 Saturation ABG Base Excess ABG Hemoglobin ABG Oxyhemoglobin ABG Potassium ABG Glucose Oxyhemoglobin Carboxyhemoglobin Sodium Potassium Chloride Carbon Dioxide BUN Creatinine Glucose POC Glucose 113 H 126 H 126 H Calcium Ferritin Total Bilirubin Alkaline Phosphatase Lactate Dehydrogenase Total Creatine Kinase CK-MB (CK-2) Rel Index Troponin T C-Reactive Protein Total Protein Albumin Prealbumin LDL Cholesterol Direct HDL Cholesterol Arterial Blood Glucose Arterial Blood Ionized Calcium Urine WBC (Auto) 05/05/20 05/05/20 05/05/20 05:32 11:11 23:57 WBC RBC Hgb Hct MCV MCH RDW Plt Count Lymph % (Auto) [place] % (Auto) Lymph # (Auto) [place] # (Auto) Seg Neutrophils % Seg Neuts % (Manual) Lymphocytes % (Manual) Monocytes % (Manual) Basophils % (Manual) Seg Neutrophils # Seg Neutrophils # Man Lymphocytes # (Manual) Monocytes # (Manual) Eosinophils # (Manual) Basophils # (Manual) PT INR D-Dimer ABG pH POC ABG pCO2 POC ABG pO2 ABG pO2 ABG HCO3 ABG O2 Saturation ABG Base Excess ABG Hemoglobin ABG Oxyhemoglobin ABG Potassium ABG Glucose Oxyhemoglobin Carboxyhemoglobin Sodium Potassium Chloride Carbon Dioxide BUN Creatinine Glucose POC Glucose 109 H 124 H 119 H Calcium Ferritin Total Bilirubin Alkaline Phosphatase Lactate Dehydrogenase Total Creatine Kinase CK-MB (CK-2) Rel Index Troponin T C-Reactive Protein Total Protein Albumin Prealbumin LDL Cholesterol Direct HDL Cholesterol Arterial Blood Glucose Arterial Blood Ionized Calcium Urine WBC (Auto) 05/06/20 05/06/20 05/07/20 05:34 23:08 04:43 WBC RBC Hgb 10.1 L Hct 31.9 L MCV 81 L MCH 25 L RDW 17.6 H Plt Count 506 H Lymph % (Auto) [place] % (Auto) 8.6 H Lymph # (Auto) [place] # (Auto) 0.9 H Seg Neutrophils % Seg Neuts % (Manual) Lymphocytes % (Manual) Monocytes % (Manual) Basophils % (Manual) Seg Neutrophils # Seg Neutrophils # Man Lymphocytes # (Manual) Monocytes # (Manual) Eosinophils # (Manual) Basophils # (Manual) PT INR D-Dimer ABG pH POC ABG pCO2 POC ABG pO2 ABG pO2 ABG HCO3 ABG O2 Saturation ABG Base Excess ABG Hemoglobin ABG Oxyhemoglobin ABG Potassium ABG Glucose Oxyhemoglobin Carboxyhemoglobin Sodium Potassium Chloride Carbon Dioxide BUN Creatinine Glucose POC Glucose 121 H 107 H Calcium Ferritin Total Bilirubin Alkaline Phosphatase Lactate Dehydrogenase Total Creatine Kinase CK-MB (CK-2) Rel Index Troponin T C-Reactive Protein Total Protein Albumin Prealbumin LDL Cholesterol Direct HDL Cholesterol Arterial Blood Glucose Arterial Blood Ionized Calcium Urine WBC (Auto) 05/07/20 05/07/20 05/07/20 06:18 17:13 23:29 WBC RBC Hgb Hct MCV MCH RDW Plt Count Lymph % (Auto) [place] % (Auto) Lymph # (Auto) [place] # (Auto) Seg Neutrophils % Seg Neuts % (Manual) Lymphocytes % (Manual) Monocytes % (Manual) Basophils % (Manual) Seg Neutrophils # Seg Neutrophils # Man Lymphocytes # (Manual) Monocytes # (Manual) Eosinophils # (Manual) Basophils # (Manual) PT INR D-Dimer ABG pH POC ABG pCO2 POC ABG pO2 ABG pO2 ABG HCO3 ABG O2 Saturation ABG Base Excess ABG Hemoglobin ABG Oxyhemoglobin ABG Potassium ABG Glucose Oxyhemoglobin Carboxyhemoglobin Sodium Potassium Chloride Carbon Dioxide BUN Creatinine Glucose POC Glucose 121 H 122 H 114 H Calcium Ferritin Total Bilirubin Alkaline Phosphatase Lactate Dehydrogenase Total Creatine Kinase CK-MB (CK-2) Rel Index Troponin T C-Reactive Protein Total Protein Albumin Prealbumin LDL Cholesterol Direct HDL Cholesterol Arterial Blood Glucose Arterial Blood Ionized Calcium Urine WBC (Auto) 01/03/1805/08/20 05/08/20 05:20 11:57 23:42 WBC RBC Hgb Hct MCV MCH RDW Plt Count Lymph % (Auto) [place] % (Auto) Lymph # (Auto) [place] # (Auto) Seg Neutrophils % Seg Neuts % (Manual) Lymphocytes % (Manual) Monocytes % (Manual) Basophils % (Manual) Seg Neutrophils # Seg Neutrophils # Man Lymphocytes # (Manual) Monocytes # (Manual) Eosinophils # (Manual) Basophils # (Manual) PT INR D-Dimer ABG pH POC ABG pCO2 POC ABG pO2 ABG pO2 ABG HCO3 ABG O2 Saturation ABG Base Excess ABG Hemoglobin ABG Oxyhemoglobin ABG Potassium ABG Glucose Oxyhemoglobin Carboxyhemoglobin Sodium Potassium Chloride Carbon Dioxide BUN Creatinine Glucose POC Glucose 121 H 113 H 135 H Calcium Ferritin Total Bilirubin Alkaline Phosphatase Lactate Dehydrogenase Total Creatine Kinase CK-MB (CK-2) Rel Index Troponin T C-Reactive Protein Total Protein Albumin Prealbumin LDL Cholesterol Direct HDL Cholesterol Arterial Blood Glucose Arterial Blood Ionized Calcium Urine WBC (Auto) 05/09/20 05/09/20 05/09/20 05:31 11:11 16:06 WBC RBC Hgb Hct MCV MCH RDW Plt Count Lymph % (Auto) [place] % (Auto) Lymph # (Auto) [place] # (Auto) Seg Neutrophils % Seg Neuts % (Manual) Lymphocytes % (Manual) Monocytes % (Manual) Basophils % (Manual) Seg Neutrophils # Seg Neutrophils # Man Lymphocytes # (Manual) Monocytes # (Manual) Eosinophils # (Manual) Basophils # (Manual) PT INR D-Dimer ABG pH POC ABG pCO2 POC ABG pO2 ABG pO2 ABG HCO3 ABG O2 Saturation ABG Base Excess ABG Hemoglobin ABG Oxyhemoglobin ABG Potassium ABG Glucose Oxyhemoglobin Carboxyhemoglobin Sodium 136 L Potassium Chloride 97.0 L Carbon Dioxide 34 H BUN Creatinine < 0.2 L Glucose 107 H POC Glucose 66 L 127 H Calcium Ferritin Total Bilirubin Alkaline Phosphatase Lactate Dehydrogenase Total Creatine Kinase CK-MB (CK-2) Rel Index Troponin T C-Reactive Protein Total Protein Albumin Prealbumin LDL Cholesterol Direct HDL Cholesterol Arterial Blood Glucose Arterial Blood Ionized Calcium Urine WBC (Auto) 05/09/20 05/10/20 05/10/20 23:19 04:59 11:28 WBC RBC Hgb Hct MCV MCH RDW Plt Count Lymph % (Auto) [place] % (Auto) Lymph # (Auto) [place] # (Auto) Seg Neutrophils % Seg Neuts % (Manual) Lymphocytes % (Manual) Monocytes % (Manual) Basophils % (Manual) Seg Neutrophils # Seg Neutrophils # Man Lymphocytes # (Manual) Monocytes # (Manual) Eosinophils # (Manual) Basophils # (Manual) PT INR D-Dimer ABG pH POC ABG pCO2 POC ABG pO2 ABG pO2 ABG HCO3 ABG O2 Saturation ABG Base Excess ABG Hemoglobin ABG Oxyhemoglobin ABG Potassium ABG Glucose Oxyhemoglobin Carboxyhemoglobin Sodium Potassium Chloride Carbon Dioxide BUN Creatinine Glucose POC Glucose 108 H 126 H 124 H Calcium Ferritin Total Bilirubin Alkaline Phosphatase Lactate Dehydrogenase Total Creatine Kinase CK-MB (CK-2) Rel Index Troponin T C-Reactive Protein Total Protein Albumin Prealbumin LDL Cholesterol Direct HDL Cholesterol Arterial Blood Glucose Arterial Blood Ionized Calcium Urine WBC (Auto) 05/10/20 05/11/20 23:56 06:13 WBC RBC Hgb Hct MCV MCH RDW Plt Count Lymph % (Auto) [place] % (Auto) Lymph # (Auto) [place] # (Auto) Seg Neutrophils % Seg Neuts % (Manual) Lymphocytes % (Manual) Monocytes % (Manual) Basophils % (Manual) Seg Neutrophils # Seg Neutrophils # Man Lymphocytes # (Manual) Monocytes # (Manual) Eosinophils # (Manual) Basophils # (Manual) PT INR D-Dimer ABG pH POC ABG pCO2 POC ABG pO2 ABG pO2 ABG HCO3 ABG O2 Saturation ABG Base Excess ABG Hemoglobin ABG Oxyhemoglobin ABG Potassium ABG Glucose Oxyhemoglobin Carboxyhemoglobin Sodium Potassium Chloride Carbon Dioxide BUN Creatinine Glucose POC Glucose 113 H 124 H Calcium Ferritin Total Bilirubin Alkaline Phosphatase Lactate Dehydrogenase Total Creatine Kinase CK-MB (CK-2) Rel Index Troponin T C-Reactive Protein Total Protein Albumin Prealbumin LDL Cholesterol Direct HDL Cholesterol Arterial Blood Glucose Arterial Blood Ionized Calcium Urine WBC (Auto) Chest x-ray: image reviewed (slightly improved RLL partial atelectasis) Allied health notes reviewed: nursing
[2020-05-11] MEDS: SODIUM HYPOCHLORITE, DAKIN'S 1/2 STRENGTH (0.25%) 473 ML TOPICAL SOLN TP SCH ×2 (11:45→22:20)
--- NOTE | 2020-05-11 11:54 | Progress Note ---
Assessment and Plan --Acute hypoxic hypercapnic respiratory failure; Intubated on mechanical ventilation. Etiology secondary to sepsis, ALS, multifocal pneumonia (Covid negative). S/p trach placement 03/07/20 --Status post cardiac arrest on 02/25, cardiac hernandez now stable --Dysphagia, status post PEG placement for tube feeding --ALS; Chronic Continue to provide supportive care --Elevated D-dimers; CTA chest, lower extremity venous Doppler both are negative Lovenox for DVT prophylaxis --Bilateral pneumonia; probably community-acquired Completed treatment ID recommendations appreciated --Sepsis secondary to pneumonia s/p empiric antibiotic --Elevated troponin; Serial cardiac enzymes, serial EKGs Echocardiogram, cardiology consult if needed --Hypernatremia Trend sodium Free water via feeding tube --Abdominal distention due to bladder outlet obstruction, resolved CT abdomen showed bladder outlet obstruction, urology consulted s/p drake placement by urology on 03/09 --Hypotension possibly from septic shock and bladder outlet obstruction improved following placing drake --Hypernatremia due to hypovolumia, resolved free water with TF --Constipation; Patient already received Dulcolax suppository and Colace Received milk of magnesia, with relief --DVT prophylaxis; Lovenox Brief history: 59-year-old male patient with significant past medical history of ALS, presented to ED with worsening shortness of breath since the morning [employer]. Patient was on a trilogy machine for breathing 18/11. EMS arrived, patient had O2 sats in the 80s. EMS attempted to place patient on their CPAP machine, however patient did not tolerate. Patient was admitted to the ICU with diagnosis of acute hypoxic respiratory failure and placed on BiPAP. Patient initially tolerated but later deteriorated with respiratory status. CTA chest showed no PE but significant for bilateral pneumonia. Doppler ultrasound also negative for DVT. COVID-19 test ordered and negative. Due to persistent hypoxia and asystolic/V. fib cardiac arrest, patient was intubated on 02/26/2020 at 1500. Patient now on mechanical ventilation in the ICU s/p trach placement and now unable to wean off from the mechanical ventilation. Patient now status post PEG placement for tube feeding. Patient most likely need long-term placement -LTAC versus SNF Daily course: 02/25/2020. CTA of the chest reveals no PE but does illustrate the bilateral pneumonia. Doppler ultrasound also negative for DVT. Blood cultures are pe nding. Await COVID-19 testing. Patient currently requiring BiPAP IPAP 24/EPAP 6 with FiO2 of 25%. Continue O2 and BiPAP as clinically indicated. ID and pulmonary consulted. 02/26/2020. Blood cultures are negative x48 hours and Covid testing negative as well. Continue antibiotics per ID recommendations for community-acquired bilateral pneumonia. Cardiology consultation for elevated troponin. Check echocardiogram. 02/27/2020. Events of yesterday noted with asystole following V. fib arrest. Patient currently on AC mode rate 20, tidal volume 400, FiO2 50% and a PEEP of 6. Follow-up echocardiogram for elevated troponin. Cardiology suspects NSTEMI Type 2 in the setting of acute resp failure. Chest CTA and BLE Dopplers neg. we will discontinue Decadron given the Covid PCR is negative. 02/28/2020. I spoke with the sister Felisa Eli who is the power of document review attorney regarding advanced directives and she instructed me that she would like to continue with aggressive care at this time. I informed her of the guarded prognosis and high mortality/morbidity and she voiced understanding. Patient currently with AC mode ventilation rate 18, tidal volume 400, FiO2 40% and a PEEP of 6. Continue antibiotics for pneumonia. ID previously consulted. Also consult neurology with regards to ALS. 02/29/2020; patient is intubated and on CPAP patient is alert and oriented. Patient has ALS. Dr. Álvarez spoke with his sister and she wants aggressive care. Continue antibiotics for pneumonia. Neurology consulted for ALS. Prognosis poor 03/01/2020; patient is intubated and on CPAP, patient is alert and oriented. I spoke with his 2 sisters about the management plan. 03/02/2020; patient is intubated and on CPAP. Patient was alert and oriented. I spoke with Dr. mohr and he thinks patient may need mechanical ventilation, likely his disease progressed. Dr. Flowers did debridement this morning. 03/03/2020; patient is intubated and on CPAP, patient was on trilogy and BiPAP at home. Patient has ALS. on spontaneous breathing trial. Patient is alert and oriented but quadriplegic. Patient has severe bilateral pneumonia and is on cefepime and Vanco, ID is following. Patient has sacral decubitus ulcer and debridement was done by Dr. Flowers and there is no osteomyelitis. 03/05. Patient still on broad-spectrum antibiotics. Status post sacral decubitus ulcer debridements-no osteomyelitis. Patient is on AC 25/400/30% PEEP 5. No blood gas results today. 03/06. Plan for tracheostomy by surgery. Still remains intubated. Labs reviewed-sodium 150. Started on free water 200 every 8hr. trend sodium. 03/07: s/p trach placement today, patient placed back on mechanical ventilation with trach. Plan to resume tube feeding with NG tube. Continue to monitor vitals, monitor BMP. 03/08: Patient noted to have distended abdomen with low urinary output. Obtain bladder scan rule out urine retention, UA and urine culture, continue to follow clinically. 03/09: Patient noted to have low blood pressure with SBP as low as 70s. Ordered for 500 mils normal saline bolus. CT abdomen showed bladder outlet obstruction, urology consulted. 03/10: placed on drake by urology o/n, improved urine outpt. cont to monitor BMP. resuded TF - cont free water with TF. wean off from vent as tolerated. 03/11: Vitals stable. cont TF, wean off from vent as tolerated. start on 1/2 NS for hypernatremia - follow BMP 03/12: wean off vent as tolerated, plan for speech eval, cont Tf for now, cont iv fluid 03/13: unable to wean off from vent, unable to do speech therapy eval. will need PEG tube, cont supportive care for now, cont NG tube feeding 03/14: consulted GI for PEg placemnet, cont supportive care. remains on vent at night 03/15: Discussed with GI, plan for PEG tube placement possibly tomorrow. Continue supportive care and wean off from vent as tolerated. Hold Lovenox dose tonight. 03/16: family didnot consent for PEG placement yesterday. I spoke with the megan rodriguez today and she is now agreeable for PEG tube. I explained the necessity of the procedure with RN to the patient also and he nodded started on tube feeding, for the procedure. will cont supportive care. planned for PEG tube placement tomorrow. 03/17: s/p PEG placement today, patient tolerated well, cont supportive care 03/18: Started on tube feeding with new PEG tube, continue to wean off vent as tolerated 03/19: cont to monitor with supportive care, wean off vent as tolerated 03/20: Continue to wean off vent as tolerated -but failing weaning trial. Still requiring vent support at night. Currently on PEG tube for tube feed. 03/21. Pt with PSV trials with FiO@ 30%, PEEP 6, PS 10. Currently on PEG tube for tube feed. 03/22/2020. Continue PSV trials per pulmonary. Continue bronchodilators. Patient tolerating tube feedings. Continue Robinul for secretion control. 03/23/2020. Continue PSV trials per pulmonary. Continue bronchodilators. Continue Scopolamine and Robinul for secretion control. Trach care/airway management. Mobility protocols for pressure ulcer prophylaxis. LTAC evaluation per case management 03/24/2020. Continue PSV trials with current settings pressure support 10, PEEP 6 and FiO2 30%. Continue bronchodilators/nebulizer. Continue Scopolamine and Robinul for secretion control. Trach care/airway management. Mobility protocols for pressure ulcer prophylaxis. LTAC evaluation per case management 03/25/2020. Pulmonary to proceed with T-piece trials today. Continue bronchodilators/nebulizer. Continue Scopolamine and Robinul for secretion control. Trach care/airway management. Mobility protocols for pressure ulcer prophylaxis. 03/26/2020. Patient currently with PSV 10/6 at FiO2 of 30%. Continue weaning and T-piece trials per protocol. Continue bronchodilators/nebulizer. Continue Scopolamine and Robinul for secretion control. Trach care/airway management. Mobility protocols for pressure ulcer prophylaxis. Continue tube feeding with aspiration precautions. 03/27/2020. Patient currently with PSV 10/6 at FiO2 of 30%. Continue weaning and T-piece trials per protocol. Continue bronchodilators/nebulizer. Continue Scopolamine and Robinul for secretion control. Trach care/airway management. Mobility protocols for pressure ulcer prophylaxis. Continue tube feeding with aspiration precautions. 03/28. Had temp 100.7F. He has been off antibiotics. Will send blood culture, ua, urine culture and chest xray. Had chest pain overnight and trop was elevated as well. Cardiology to evaluate 03/29. Has back pain due to position. He mentions his chest pain is positional. Has no other complaints. Still on mechanical ventilation 03/30. No chest pain today. Labs reviewed. Discussed chest pain with cardiology and team advised no further work up at this time. Can follow up with cardiology in the office after hospitalization 03/31. Lidocaine patch for lower back pain. 04/01. Discharge planning underway. CM notes reviewed. Discussed with daughter 04/02. CM trying to arrange discharge. Continue PSV trials. Discussed with patients significant other 04/04/2020; CM is working for discharge arrangement. Continue PSV trials. 04/05/2020; patient was seen and evaluated this morning and no change from baseline. Continue with PSV trials. Follow with epic professional for discharge planning. 04/06/2020;patient was seen and evaluated this morning and no change from baseline. Continue with PSV trials. Follow with epic professional for discharge planning. 04/07/2020; patient was seen and evaluated this morning and no change from baseline. Continue with PSV trials. Follow with epic professional for discharge planning. 04/08/2020; patient is vent dependent. Discharge is per epic professional. 04/09/2020 patient is vent dependent, possible LTAC placement 04/10/2020; tracheostomy on vent, vent dependent pending LTAC placement 04/11/2020; clinically no change, tracheostomy on ventilatory support, wean as tolerated, awaiting placement 04/12/2020; remains on ventilatory support, unable to wean, patient wants to see a speech therapist for sound box However we cannot try that as long as he is on ventilatory support, once he is weaned off vent We will consult speech therapist, plan of care reviewed with the patient and his nurse 04/14/2020; clinically no change, on ventilatory support, complains of constipation, milk of magnesia Closely monitor the patient and adjust the management as needed 04/15/2020; patient has some oral thrush on the tongue, will give Magic mouthwash/nystatin swish and spit Wean off vent as tolerated 04/16 patient is alert and oriented, unable to comprehend what he is trying to tell but appears to complain of some pain, no acute events overnight, all interdisciplinary notes reviewed. Waiting for LTAC versus long-term facility placement 04/17/2020. Continue supportive care with mechanical ventilation. Patient currently on AC mode rate 10, tidal volume 400 FiO2 30% with a PEEP of 6. Discharge planning per case management. 04/18/2020. Patient remains on mechanical ventilation AC mode rate 10, tidal volume 400, FiO2 30% and PEEP of 6. Continue spontaneous breathing trials as tolerated. Previously, patient was considered for discharge home with skilled staff providing care for 12 hours 7 days/week. Continue discussed with case management discharge planning. 04/19/20. Patient remains on mechanical ventilation AC mode rate 10, tidal volume 400, FiO2 30% and PEEP of 6. Continue spontaneous breathing trials as tolerated. 04/20/2020. Patient remains on mechanical ventilation AC mode rate 10, tidal volume 400, FiO2 30% and PEEP of 6. Continue spontaneous breathing trials as tolerated. 04/21/2020. Patient remains on mechanical ventilation AC mode rate 10, tidal volume 400, FiO2 30% and PEEP of 6. Continue tracheostomy care, secretion control and airway management. Continue spontaneous breathing trials as tolerated. 04/22/2020. Patient remains on mechanical ventilation AC mode rate 10, tidal volume 400, FiO2 30% and PEEP of 6. Continue tracheostomy care, secretion control and airway management. Continue spontaneous breathing trials as tolera milana. 04/23/2020. Patient on mechanical ventilation AC mode rate 18, tidal volume 450, FiO2 30% and PEEP of 6. Continue tracheostomy care, secretion control and airway management. Continue spontaneous breathing trials as tolerated. Continue Robinul and scopolamine for secretions. Continue baclofen. 04/24/2020. Patient remains on AC mode ventilation rate 10, tidal volume 400, FiO2 30% and PEEP of 6. Continue tracheostomy care, secretion control and airway management. Continue spontaneous breathing trials as tolerated. Continue Robinul and scopolamine for secretions. Continue baclofen. Continue Xanax for anxiety and Ambien for sleep. Await case management follow-up with regards to discharge planning. 04/25/2020. Patient remains on AC mode ventilation rate 10, tidal volume 400, FiO2 30% and PEEP of 6. Continue tracheostomy care, secretion control and airway management. Continue spontaneous breathing trials as tolerated. Continue Robinul and scopolamine for secretions. Continue baclofen. Continue Xanax for anxiety and Ambien for sleep. Await case management follow-up with regards to discharge planning. 04/26. Patient remains on AC mode ventilation rate 10, tidal volume 400, FiO2 30% and PEEP of 6. Continue tracheostomy care, secretion control and airway management. Continue spontaneous breathing trials as tolerated. Continue Robinul and scopolamine for secretions. Continue baclofen. Continue Xanax for anxiety and Ambien for sleep. Await case management follow-up with regards to discharge planning. 04/27. Patient remains on AC mode ventilation rate 10, tidal volume 400, FiO2 30% and PEEP of 6. Continue tracheostomy care, secretion control and airway management. Continue spontaneous breathing trials as tolerated. Continue Robinul and scopolamine for secretions. Continue baclofen. Continue Xanax for anxiety and Ambien for sleep. Await case management follow-up with regards to discharge planning. 04/28/20 no acute events overnight, remains vent dependent, cardiology and pulmonary notes reviewed 04/29 remains intubated via tracheostomy, no acute events 04/30 no acute events overnight, cardiology note reviewed, remains vent dependent, discharge planning per case management 05/01 stable. cardiology and pulmonary notes reviewed. D/C acu-checks 05/02 - todate: Clinically stable, CM working on placement. Continue supportive care. Subjective Date of service: 05/11/20 Principal diagnosis: Ac on Ch Hypercapnic & hypoxemic Resp Failure; Severe Sepsis; Jamar PNA; ALS Interval history: Patient seen and examined Remains on trach tube Discussed with RN at the bedside Vitals reviewed -BP stable Tolerating tube feeding with PEG tube Objective - Exam Narrative Exam: GENERAL: Awake. Intubated with trach tube HEAD: No signs of head trauma. EYES: Pupils are equal. Extraocular motions intact. EARS: Hearing grossly intact. MOUTH: Oropharynx is normal. NECK: No adenopathy, no JVD. CHEST: Coarse breath sounds bilaterally CARDIAC: Regular rate and rhythm. S1 and S2, without murmurs, gallops, or rubs. VASCULAR: No Edema. Peripheral pulses normal and equal in all extremities. ABDOMEN: Soft, non tender and nondistended. Bowel Sounds normal. PEG in place NEUROLOGIC EXAM: Awake, paraplegic SKIN: No obvious lesions - Constitutional Vitals: Vital Signs - 12hr 05/11/20 05/11/20 05/11/20 00:00 00:02 01:00 Temperature 97.5 F L Pulse Rate 99 H 99 H 97 H Respiratory 11 L 18 Rate Blood Pressure 114/84 114/84 115/79 O2 Sat by Pulse 99 98 Oximetry 05/11/20 05/11/20 05/11/20 02:00 03:00 04:00 Temperature 97.8 F Pulse Rate 97 H 99 H 103 H Respiratory 12 19 12 Rate Blood Pressure 111/76 111/76 120/80 O2 Sat by Pulse 96 Oximetry 05/11/20 05/11/20 05/11/20 04:48 05:00 05:05 Temperature Pulse Rate 108 H 106 H 106 H Respiratory 13 Rate Blood Pressure 120/80 125/89 O2 Sat by Pulse 98 Oximetry 05/11/20 05/11/20 06:00 07:43 Temperature Pulse Rate 113 H 112 H Respiratory 19 Rate Blood Pressure 119/88 132/93 O2 Sat by Pulse 96 97 Oximetry - Labs CBC & Chem 7: 05/07/20 04:43 05/09/20 16:06 Labs: Abnormal lab results 05/10/20 05/11/20 Range/Units 23:56 06:13 POC Glucose 113 H 124 H (70-105) mg/dL HEART Score - HEART Score Troponin: Troponin T 0.181 ng/mL (0.00-0.029) H* 04/24/20 05:28
[2020-05-11] MEDS: ACETAMINOPHEN 325 MG TAB PO PRN (12:07)
[2020-05-11] MEDS: D5W/0.9% NACL 1,000 ML IV SCH (12:30)
[2020-05-11] MEDS: ENOXAPARIN 40 MG/0.4 ML INJ SUB-Q SCH (22:20)
[2020-05-11] MEDS: ZOLPIDEM 5 MG TAB PO PRN (22:21)
[2020-05-11] MEDS: SENNOSIDES 8.6 MG TAB PO SCH (22:21)
[2020-05-12] MEDS: MORPHINE 2 MG/1 ML INJ IV PRN ×4 (02:24→20:53)
[2020-05-12] MEDS: traMADol 50 MG TAB PO PRN (05:42)
[2020-05-12] MEDS: ALPRAZolam 0.5 MG TAB PO PRN ×2 (05:43→14:09)
[2020-05-12] MEDS: GLYCOPYRROLATE 1 MG TAB PO SCH ×3 (08:39→20:51)
[2020-05-12] MEDS: MAGIC MOUTHWASH 30ML PO SCH ×3 (08:39→20:51)
--- NOTE | 2020-05-12 10:07 | Progress Note ---
Assessment and Plan Assessment and plan: --Acute hypoxic hypercapnic respiratory failure; Intubated on mechanical ventilation. Etiology secondary to sepsis, ALS, multifocal pneumonia (Covid negative). S/p trach placement 03/07/20 --Status post cardiac arrest on 02/25, cardiac hernandez now stable --Dysphagia, status post PEG placement for tube feeding --ALS; Chronic Continue to provide supportive care --Elevated D-dimers; CTA chest, lower extremity venous Doppler both are negative Lovenox for DVT prophylaxis --Bilateral pneumonia; probably community-acquired Completed treatment ID recommendations appreciated --Sepsis secondary to pneumonia s/p empiric antibiotic --Elevated troponin; Serial cardiac enzymes, serial EKGs Echocardiogram, cardiology consult if needed --Hypernatremia Trend sodium Free water via feeding tube --Abdominal distention due to bladder outlet obstruction, resolved CT abdomen showed bladder outlet obstruction, urology consulted s/p drake placement by urology on 03/09 --Hypotension possibly from septic shock and bladder outlet obstruction improved following placing drake --Hypernatremia due to hypovolumia, resolved free water with TF --Constipation; Patient already received Dulcolax suppository and Colace Received milk of magnesia, with relief --DVT prophylaxis; Lovenox Brief history: 59-year-old male patient with significant past medical history of ALS, presented to ED with worsening 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 Patient was on a trilogy machine for breathing 18/11. EMS arrived, patient had O2 sats in the 80s. EMS attempted to place patient on their CPAP machine, however patient did not tolerate. Patient was admitted to the ICU with diagnosis of acute hypoxic respiratory failure and placed on BiPAP. Patient initially tolerated but later deteriorated with respiratory status. CTA chest showed no PE but significant for bilateral pneumonia. Doppler ultrasound also negative for DVT. COVID-19 test ordered and negative. Due to persistent hypoxia and asystolic/V. fib cardiac arrest, patient was intubated on 02/26/2020 at 1500. Patient now on mechanical ventilation in the ICU s/p trach placement and now unable to wean off from the mechanical ventilation. Patient now status post PEG placement for tube feeding. Patient most likely need long-term placement -LTAC versus SNF Daily course: 02/25/2020. CTA of the chest reveals no PE but does illustrate the bilateral pneumonia. Doppler ultrasound also negative for DVT. Blood cultures are pending. Await COVID-19 testing. Patient currently requiring BiPAP IPAP 24/EPAP 6 with FiO2 of 25%. Continue O2 and BiPAP as clinically indicated. ID and pulmonary consulted. 02/26/2020. Blood cultures are negative x48 hours and Covid testing negative as well. Continue antibiotics per ID recommendations for community-acquired bilateral pneumonia. Cardiology consultation for elevated troponin. Check echocardiogram. 02/27/2020. Events of yesterday noted with asystole following V. fib arrest. Patient currently on AC mode rate 20, tidal volume 400, FiO2 50% and a PEEP of 6. Follow-up echocardiogram for elevated troponin. Cardiology suspects NSTEMI Type 2 in the setting of acute resp failure. Chest CTA and BLE Dopplers neg. we will discontinue Decadron given the Covid PCR is negative. 02/28/2020. I spoke with the sister Felisa Eli who is the power of criminal attorney regarding advanced directives and she instructed me that she would like to continue with aggressive care at this time. I informed her of the guarded prognosis and high mortality/morbidity and she voiced understanding. Patient currently with AC mode ventilation rate 18, tidal volume 400, FiO2 40% and a PEEP of 6. Continue antibiotics for pneumonia. ID previously consulted. Also consult neurology with regards to ALS. 02/29/2020; patient is intubated and on CPAP patient is alert and oriented. Patient has ALS. Dr. Álvarez spoke with his sister and she wants aggressive care. Continue antibiotics for pneumonia. Neurology consulted for ALS. Prognosis poor 03/01/2020; patient is intubated and on CPAP, patient is alert and oriented. I spoke with his 2 sisters about the management plan. 03/02/2020; patient is intubated and on CPAP. Patient was alert and oriented. I spoke with Dr. mohr and he thinks patient may need mechanical ventilation, likely his disease progressed. Dr. Flowers did debridement this morning. 03/03/2020; patient is intubated and on CPAP, patient was on trilogy and BiPAP at home. Patient has ALS. on spontaneous breathing trial. Patient is alert and oriented but quadriplegic. Patient has severe bilateral pneumonia and is on cefepime and Vanco, ID is following. Patient has sacral decubitus ulcer and debridement was done by Dr. Flowers and there is no osteomyelitis. 03/05. Patient still on broad-spectrum antibiotics. Status post sacral decubitus ulcer debridements-no osteomyelitis. Patient is on AC 25/400/30% PEEP 5. No blood gas results today. 03/06. Plan for tracheostomy by surgery. Still remains intubated. Labs review ed-sodium 150. Started on free water 200 every 8hr. trend sodium. 03/07: s/p trach placement today, patient placed back on mechanical ventilation with trach. Plan to resume tube feeding with NG tube. Continue to monitor vitals, monitor BMP. 03/08: Patient noted to have distended abdomen with low urinary output. Obtain bladder scan rule out urine retention, UA and urine culture, continue to follow clinically. 03/09: Patient noted to have low blood pressure with SBP as low as 70s. Ordered for 500 mils normal saline bolus. CT abdomen showed bladder outlet obstruction, urology consulted. 03/10: placed on drake by urology o/n, improved urine outpt. cont to monitor BMP. resuded TF - cont free water with TF. wean off from vent as tolerated. 03/11: Vitals stable. cont TF, wean off from vent as tolerated. start on 1/2 NS for hypernatremia - follow BMP 03/12: wean off vent as tolerated, plan for speech eval, cont Tf for now, cont iv fluid 03/13: unable to wean off from vent, unable to do speech therapy eval. will need PEG tube, cont supportive care for now, cont NG tube feeding 03/14: consulted GI for PEg placemnet, cont supportive care. remains on vent at night 03/15: Discussed with GI, plan for PEG tube placement possibly tomorrow. Continue supportive care and wean off from vent as tolerated. Hold Lovenox dose tonight. 03/16: family didnot consent for PEG placement yesterday. I spoke with the daughter today and she is now agreeable for PEG tube. I explained the necessity of the procedure with RN to the patient also and he nodded started on tube feeding, for the procedure. will cont supportive care. planned for PEG tube placement tomorrow. 03/17: s/p PEG placement today, patient tolerated well, cont supportive care 03/18: Started on tube feeding with new PEG tube, continue to wean off vent as tolerated 03/19: cont to monitor with supportive care, wean off vent as tolerated 03/20: Continue to wean off vent as tolerated -but failing weaning trial. Still requiring vent support at night. Currently on PEG tube for tube feed. 03/21. Pt with PSV trials with FiO@ 30%, PEEP 6, PS 10. Currently on PEG tube for tube feed. 03/22/2020. Continue PSV trials per pulmonary. Continue bronchodilators. Patient tolerating tube feedings. Continue Robinul for secretion control. 03/23/2020. Continue PSV trials per pulmonary. Continue bronchodilators. Continue Scopolamine and Robinul for secretion control. Trach care/airway management. Mobility protocols for pressure ulcer prophylaxis. LTAC evaluation per case management 03/24/2020. Continue PSV trials with current settings pressure support 10, PEEP 6 and FiO2 30%. Continue bronchodilators/nebulizer. Continue Scopolamine and Robinul for secretion control. Trach care/airway management. Mobility protocols for pressure ulcer prophylaxis. LTAC evaluation per case management 03/25/2020. Pulmonary to proceed with T-piece trials today. Continue bronchodilators/nebulizer. Continue Scopolamine and Robinul for secretion control. Trach care/airway management. Mobility protocols for pressure ulcer prophylaxis. 03/26/2020. Patient currently with PSV 10/6 at FiO2 of 30%. Continue weaning and T-piece trials per protocol. Continue bronchodilators/nebulizer. Continue Scopolamine and Robinul for secretion control. Trach care/airway management. Mobility protocols for pressure ulcer prophylaxis. Continue tube feeding with aspiration precautions. 03/27/2020. Patient currently with PSV 10/6 at FiO2 of 30%. Continue weaning and T-piece trials per protocol. Continue bronchodilators/nebulizer. Continue Scopolamine and Robinul for secretion control. Trach care/airway management. Mobility protocols for pressure ulcer prophylaxis. Continue tube feeding with aspiration precautions. 03/28. Had temp 100.7F. He has been off antibiotics. Will send blood culture, ua, urine culture and chest xray. Had chest pain overnight and trop was elevated as well. Cardiology to evaluate 03/29. Has back pain due to position. He mentions his chest pain is positional. Has no other complaints. Still on mechanical ventilation 03/30. No chest pain today. Labs reviewed. Discussed chest pain with cardiology and team advised no further work up at this time. Can follow up with cardiology in the office after hospitalization 03/31. Lidocaine patch for lower back pain. 04/01. Discharge planning underway. CM notes reviewed. Discussed with daughter 04/02. CM trying to arrange discharge. Continue PSV trials. Discussed with patients significant other 04/04/2020; CM is working for discharge arrangement. Continue PSV trials. 04/05/2020; patient was seen and evaluated this morning and no change from baseline. Continue with PSV trials. Follow with computer forensic specialist for discharge planning. 04/06/2020;patient was seen and evaluated this morning and no change from baseline. Continue with PSV trials. Follow with computer forensic specialist for discharge planning. 04/07/2020; patient was seen and evaluated this morning and no change from baseline. Continue with PSV trials. Follow with computer forensic specialist for discharge planning. 04/08/2020; patient is vent dependent. Discharge is per computer forensic specialist. 04/09/2020 patient is vent dependent, possible LTAC placement 04/10/2020; tracheostomy on vent, vent dependent pending LTAC placement 04/11/2020; clinically no change, tracheostomy on ventilatory support, wean as tolerated, awaiting placement 04/12/2020; remains on ventilatory support, unable to wean, patient wants to see a speech therapist for sound box However we cannot try that as long as he is on ventilatory support, once he is weaned off vent We will consult speech therapist, plan of care reviewed with the patient and his nurse 04/14/2020; clinically no change, on ventilatory support, complains of constipation, milk of magnesia Closely monitor the patient and adjust the management as needed 04/15/2020; patient has some oral thrush on the tongue, will give Magic mouthwash/nystatin swish and spit Wean off vent as tolerated 04/16 patient is alert and oriented, unable to comprehend what he is trying to tell but appears to complain of some pain, no acute events overnight, all int erdisciplinary notes reviewed. Waiting for LTAC versus alf facility placement 04/17/2020. Continue supportive care with mechanical ventilation. Patient currently on AC mode rate 10, tidal volume 400 FiO2 30% with a PEEP of 6. Discharge planning per case management. 04/18/2020. Patient remains on mechanical ventilation AC mode rate 10, tidal volume 400, FiO2 30% and PEEP of 6. Continue spontaneous breathing trials as tolerated. Previously, patient was considered for discharge home with skilled staff providing care for 12 hours 7 days/week. Continue discussed with case management discharge planning. 04/19/20. Patient remains on mechanical ventilation AC mode rate 10, tidal volume 400, FiO2 30% and PEEP of 6. Continue spontaneous breathing trials as tolerated. 04/20/2020. Patient remains on mechanical ventilation AC mode rate 10, tidal volume 400, FiO2 30% and PEEP of 6. Continue spontaneous breathing trials as tolerated. 04/21/2020. Patient remains on mechanical ventilation AC mode rate 10, tidal volume 400, FiO2 30% and PEEP of 6. Continue tracheostomy care, secretion control and airway management. Continue spontaneous breathing trials as tolerated. 04/22/2020. Patient remains on mechanical ventilation AC mode rate 10, tidal volume 400, FiO2 30% and PEEP of 6. Continue tracheostomy care, secretion control and airway management. Continue spontaneous breathing trials as tolerated. 04/23/2020. Patient on mechanical ventilation AC mode rate 18, tidal volume 450, FiO2 30% and PEEP of 6. Continue tracheostomy care, secretion control and airway management. Continue spontaneous breathing trials as tolerated. Continue Robinul and scopolamine for secretions. Continue baclofen. 04/24/2020. Patient remains on AC mode ventilation rate 10, tidal volume 400, FiO2 30% and PEEP of 6. Continue tracheostomy care, secretion control and airway management. Continue spontaneous breathing trials as tolerated. Continue Robinul and scopolamine for secretions. Continue baclofen. Continue Xanax for anxiety and Ambien for sleep. Await case management follow-up with regards to discharge planning. 04/25/2020. Patient remains on AC mode ventilation rate 10, tidal volume 400, FiO2 30% and PEEP of 6. Continue tracheostomy care, secretion control and airway management. Continue spontaneous breathing trials as tolerated. Continue Robinul and scopolamine for secretions. Continue baclofen. Continue Xanax for anxiety and Ambien for sleep. Await case management follow-up with regards to discharge planning. 04/26. Patient remains on AC mode ventilation rate 10, tidal volume 400, FiO2 30% and PEEP of 6. Continue tracheostomy care, secretion control and airway management. Continue spontaneous breathing trials as tolerated. Continue Robinul and scopolamine for secretions. Continue baclofen. Continue Xanax for anxiety and Ambien for sleep. Await case management follow-up with regards to discharge planning. 04/27. Patient remains on AC mode ventilation rate 10, tidal volume 400, FiO2 30% and PEEP of 6. Continue tracheostomy care, secretion control and airway management. Continue spontaneous breathing trials as tolerated. Continue Robinul and scopolamine for secretions. Continue baclofen. Continue Xanax for anxiety and Ambien for sleep. Await case management follow-up with regards to discharge planning. 04/28/20 no acute events overnight, remains vent dependent, cardiology and pulmonary notes reviewed 04/29 remains intubated via tracheostomy, no acute events 04/30 no acute events overnight, cardiology note reviewed, remains vent dependent, discharge planning per case management 05/01 stable. cardiology and pulmonary notes reviewed. D/C acu-checks 05/02 - todate: Clinically stable, CM working on placement. Continue supportive care. 05/12; patient is stable. Continue supportive care. History Interval history: Patient was seen and evaluated this morning Patient is intubated, on trach Patient is awake Hospitalist Physical - Physical exam Narrative exam: Intubated, on a trach The patient appeared well nourished and normally developed. Vital signs as documented. Head exam is unremarkable. No scleral icterus . Neck is without jugular venous distension, thyromegaly, or carotid bruits. Lungs are clear to auscultation. Cardiac exam reveals regular rate and Rhythm. Abdominal exam reveals normal bowel sounds, nontender, no organomegaly. Extremities are nonedematous and both femoral and pedal pulses are normal. 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 - Constitutional Vitals: Temp Pulse Resp BP Pulse Ox 98.5 F 117 H 30 H 134/89 97 05/12/20 04:00 05/12/20 08:07 05/12/20 08:07 05/12/20 08:07 05/12/20 08:07 General appearance: Present: no acute distress, cachectic, disheveled, other (Cachectic, tracheostomy on vent) HEART Score - HEART Score Troponin: Troponin T 0.181 ng/mL (0.00-0.029) H* 04/24/20 05:28 Results - Labs CBC & Chem 7: 05/07/20 04:43 05/09/20 16:06 Labs: Laboratory Last Values WBC 10.1 K/mm3 (4.5-11.0) 05/07/20 04:43 RBC 3.97 M/mm3 (3.65-5.03) 05/07/20 04:43 Hgb 10.1 gm/dl (11.8-15.2) L 05/07/20 04:43 Hct 31.9 % (35.5-45.6) L 05/07/20 04:43 MCV 81 fl (84-94) L 05/07/20 04:43 MCH 25 pg (28-32) L 05/07/20 04:43 MCHC 32 % (32-34) 05/07/20 04:43 RDW 17.6 % (13.2-15.2) H 05/07/20 04:43 Plt Count 506 K/mm3 (140-440) H 05/07/20 04:43 Lymph % (Auto) 17.3 % (13.4-35.0) 05/07/20 04:43 [place] % (Auto) 8.6 % (0.0-7.3) H 05/07/20 04:43 Eos % (Auto) 3.8 % (0.0-4.3) 05/07/20 04:43 Baso % (Auto) 0.9 % (0.0-1.8) 05/07/20 04:43 Lymph # (Auto) 1.7 K/mm3 (1.2-5.4) 05/07/20 04:43 [place] # (Auto) 0.9 K/mm3 (0.0-0.8) H 05/07/20 04:43 Eos # (Auto) 0.4 K/mm3 (0.0-0.4) 05/07/20 04:43 Baso # (Auto) 0.1 K/mm3 (0.0-0.1) 05/07/20 04:43 Add Manual Diff Complete 04/25/20 06:34 Total Counted 100 04/25/20 06:34 Seg Neutrophils % 69.4 % (40.0-70.0) 05/07/20 04:43 Seg Neuts % (Manual) 78.0 % (40.0-70.0) H 04/25/20 06:34 Band Neutrophils % 1.0 % 04/22/20 07:45 Lymphocytes % (Manual) 10.0 % (13.4-35.0) L 04/25/20 06:34 Reactive Lymphs % (Man) 1.0 % 04/22/20 07:45 Monocytes % (Manual) 9.0 % (0.0-7.3) H 04/25/20 06:34 Eosinophils % (Manual) 2.0 % (0.0-4.3) 04/25/20 06:34 Basophils % (Manual) 1.0 % (0.0-1.8) 04/25/20 06:34 Metamyelocytes % 3.0 % 04/12/20 09:07 Myelocytes % 0 % 03/28/20 10:28 Promyelocytes % 0 % 03/28/20 10:28 Blast Cells % 0 % 03/28/20 10:28 Nucleated RBC % Not Reportable 04/25/20 06:34 Seg Neutrophils # 7.0 K/mm3 (1.8-7.7) 05/07/20 04:43 Seg Neutrophils # Man 9.1 K/mm3 (1.8-7.7) H 04/25/20 06:34 Band Neutrophils # 0.0 K/mm3 04/25/20 06:34 Lymphocytes # (Manual) 1.2 K/mm3 (1.2-5.4) 04/25/20 06:34 Abs React Lymphs (Man) 0.0 K/mm3 04/25/20 06:34 Monocytes # (Manual) 1.1 K/mm3 (0.0-0.8) H 04/25/20 06:34 Eosinophils # (Manual) 0.2 K/mm3 (0.0-0.4) 04/25/20 06:34 Basophils # (Manual) 0.1 K/mm3 (0.0-0.1) 04/25/20 06:34 Metamyelocytes # 0.0 K/mm3 04/25/20 06:34 Myelocytes # 0.0 K/mm3 04/25/20 06:34 Promyelocytes # 0.0 K/mm3 04/25/20 06:34 Blast Cells # 0.0 K/mm3 04/25/20 06:34 WBC Morphology Not Reportable 04/25/20 06:34 Hypersegmented Neuts Not Reportable 04/25/20 06:34 Hyposegmented Neuts Not Reportable 04/25/20 06:34 Hypogranular Neuts Not Reportable 04/25/20 06:34 Smudge Cells Not Reportable 04/25/20 06:34 Toxic Granulation Not Reportable 04/25/20 06:34 Toxic Vacuolation Not Reportable 04/25/20 06:34 Dohle Bodies Not Reportable 04/25/20 06:34 Pelger-Huet Anomaly Not Reportable 04/25/20 06:34 Robert Rods Not Reportable 04/25/20 06:34 Platelet Estimate Consistent w auto 04/25/20 06:34 Clumped Platelets Not Reportable 04/25/20 06:34 Plt Clumps, EDTA Not Reportable 04/25/20 06:34 Large Platelets Not Reportable 04/25/20 06:34 Giant Platelets Not Reportable 04/25/20 06:34 Platelet Satelliting Not Reportable 04/25/20 06:34 Plt Morphology Comment Not Reportable 04/25/20 06:34 RBC Morphology Not Reportable 04/25/20 06:34 Dimorphic RBCs Not Reportable 04/25/20 06:34 Polychromasia Not Reportable 04/25/20 06:34 Hypochromasia 1+ 04/25/20 06:34 Poikilocytosis Not Reportable 04/25/20 06:34 Anisocytosis Few 04/25/20 06:34 Microcytosis Not Reportable 04/25/20 06:34 Macrocytosis Not Reportable 04/25/20 06:34 Spherocytes Not Reportable 04/25/20 06:34 Pappenheimer Bodies Not Reportable 04/25/20 06:34 Sickle Cells Not Reportable 04/25/20 06:34 Target Cells Not Reportable 04/25/20 06:34 Stomatocytes Few 03/17/20 04:40 Tear Drop Cells Not Reportable 04/25/20 06:34 Ovalocytes Not Reportable 04/25/20 06:34 Helmet Cells Not Reportable 04/25/20 06:34 Gregory-Commodore Bodies Not Reportable 04/25/20 06:34 [place] Rings Not Reportable 04/25/20 06:34 [place] Cells Not Reportable 04/25/20 06:34 Bite Cells Not Reportable 04/25/20 06:34 Crenated Cell Not Reportable 04/25/20 06:34 Elliptocytes Not Reportable 04/25/20 06:34 Acanthocytes (Spur) Not Reportable 04/25/20 06:34 Rouleaux Not Reportable 04/25/20 06:34 Hemoglobin C Crystals Not Reportable 04/25/20 06:34 Schistocytes 1+ 04/25/20 06:34 Malaria parasites Not Reportable 04/25/20 06:34 [place] Bodies Not Reportable 04/25/20 06:34 Hem Pathologist Commnt No 04/25/20 06:34 PT 15.6 Sec. (12.2-14.9) H 02/24/20 09:19 INR 1.21 (0.87-1.13) H 02/24/20 09:19 APTT 25.4 Sec. (24.2-36.6) 02/24/20 09:19 D-Dimer 1311.96 ng/mlDDU (0-234) H 02/24/20 09:19 ABG pH 7.371 (7.320-7.450) 03/08/20 12:34 POC ABG pCO2 63.1 mmHg (32.0-48.0) H 03/08/20 12:34 ABG pCO2 60.1 mm Hg 03/06/20 04:34 POC ABG pO2 90.5 mmHg (83-108) 03/08/20 12:34 ABG pO2 88.6 mm Hg (80.0-90.0) 03/06/20 04:34 POC ABG HCO3 35.7 03/08/20 12:34 ABG HCO3 37.9 mmol/L (20.0-26.0) H 03/06/20 04:34 ABG O2 Saturation 97.0 % (95.0-99.0) 03/06/20 04:34 ABG O2 Content 14.3 (0.0-44) 03/06/20 04:34 POC ABG Base Excess 8.7 03/08/20 12:34 ABG Base Excess 11.4 mmol/L (-2.0-3.0) H 03/06/20 04:34 ABG Hemoglobin 10.9 (12.0-17.5) L 03/08/20 12:34 ABG Oxyhemoglobin 95.9 (94-98) 03/08/20 12:34 ABG Carboxyhemoglobin 1.7 % (0.0-5.0) 03/06/20 04:34 ABG Methemoglobin 0.3 (0.0-1.5) 03/08/20 12:34 ABG Sodium 143.6 mmol/L (136.0-145.0) 03/08/20 12:34 ABG Potassium 3.8 mmol/L (3.40-4.50) 03/08/20 12:34 ABG Chloride 102.0 mmol/L (98-107) 03/08/20 12:34 ABG Glucose 176 mg/dL (65-95) H 03/08/20 12:34 Oxyhemoglobin 94.7 % (95.0-99.0) L 03/06/20 04:34 Carboxyhemoglobin 0.7 (0.5-1.5) 03/08/20 12:34 FiO2 30 03/08/20 12:34 Sodium 136 mmol/L (137-145) L 05/09/20 16:06 Potassium 4.4 mmol/L (3.6-5.0) 05/09/20 16:06 Chloride 97.0 mmol/L (98-107) L 05/09/20 16:06 Carbon Dioxide 34 mmol/L (22-30) H 05/09/20 16:06 Anion Gap 9 mmol/L 05/09/20 16:06 BUN 14 mg/dL (9-20) 05/09/20 16:06 Creatinine < 0.2 mg/dL (0.8-1.3) L 05/09/20 16:06 Estimated GFR > 60 ml/min 05/09/20 16:06 BUN/Creatinine Ratio 70 % 05/09/20 16:06 Glucose 107 mg/dL (75-100) H 05/09/20 16:06 POC Glucose 135 mg/dL (70-105) H 05/12/20 06:04 Lactic Acid 1.00 mmol/L (0.7-2.0) 02/24/20 12:07 Calcium 9.0 mg/dL (8.4-10.2) 05/09/20 16:06 Phosphorus 3.30 mg/dL (2.5-4.5) 03/29/20 14:35 Magnesium 1.90 mg/dL (1.7-2.3) 04/12/20 09:07 Ferritin 1715.0 ng/mL (30.0-300.0) H 02/24/20 10:01 Total Bilirubin 0.20 mg/dL (0.1-1.2) 04/12/20 09:07 AST 15 units/L (5-40) 04/12/20 09:07 ALT 15 units/L (7-56) 04/12/20 09:07 Alkaline Phosphatase 62 units/L (35-129) 04/12/20 09:07 Lactate Dehydrogenase 303 units/L (91-180) H 02/24/20 09:19 Total Creatine Kinase 47 units/L (55-170) L 03/28/20 17:17 CK-MB (CK-2) 2.2 ng/mL (0.0-4.0) 03/28/20 17:17 CK-MB (CK-2) Rel Index 4.6 (0-4) H 03/28/20 17:17 Troponin T 0.181 ng/mL (0.00-0.029) H* 04/24/20 05:28 C-Reactive Protein 4.70 mg/dL (0.00-1.30) H 02/28/20 11:05 NT-Pro-B Natriuret Pep 48.30 pg/mL (0-900) 02/24/20 09:19 Total Protein 6.7 g/dL (6.3-8.2) 04/12/20 09:07 Albumin 2.7 g/dL (3.9-5) L 04/12/20 09:07 Albumin/Globulin Ratio 0.7 % 04/12/20 09:07 Prealbumin 0.090 g/L (0.200-0.400) L 02/28/20 12:54 Triglycerides 62 mg/dL (2-149) 04/23/20 04:28 Cholesterol 104 mg/dL (50-199) 04/23/20 04:28 LDL Cholesterol Direct 66 mg/dL (50-130) 04/23/20 04:28 HDL Cholesterol 29 mg/dL (40-59) L 04/23/20 04:28 Cholesterol/HDL Ratio 3.58 % 04/23/20 04:28 Procalcitonin < 0.05 ng/mL (<0.15) 03/28/20 17:12 Arterial Blood Glucose 176 mg/dL (65-95) H 03/08/20 12:34 Arterial Blood Ionized Calcium 4.5 mg/dL (4.6-5.3) L 03/08/20 12:34 Urine Color Yellow (Yellow) 03/28/20 11:36 Urine Turbidity Hazy (Clear) 03/28/20 11:36 Urine pH 5.0 (5.0-7.0) 03/28/20 11:36 Ur Specific [place] 1.026 (1.003-1.030) 03/28/20 11:36 Urine Protein 100 mg/dl mg/dL (Negative) 03/28/20 11:36 Urine Glucose (UA) Neg mg/dL (Negative) 03/28/20 11:36 Urine Ketones Neg mg/dL (Negative) 03/28/20 11:36 Urine Blood Neg (Negative) 03/28/20 11:36 Urine Nitrite Neg (Negative) 03/28/20 11:36 Urine Bilirubin Neg (Negative) 03/28/20 11:36 Urine Urobilinogen 4.0 mg/dL (<2.0) 03/28/20 11:36 Ur Leukocyte Esterase Mod (Negative) 03/28/20 11:36 Urine WBC (Auto) 39.0 /HPF (0.0-6.0) H 03/28/20 11:36 Urine RBC (Auto) 16.0 /HPF (0.0-6.0) 03/28/20 11:36 U Epithel Cells (Auto) < 1.0 /HPF (0-13.0) 03/08/20 08:57 Urine Bacteria (Auto) 2+ /HPF (Negative) 03/28/20 11:36 Urine Mucus 3+ /HPF 03/28/20 11:36 Urine Yeast (Budding) 2+ /HPF 03/28/20 11:36 Vancomycin Trough 8.0 ug/mL (5.0-20.0) 03/04/20 08:59 Coronavirus (PCR) Negative (Negative) 02/25/20 09:03 - Diagnostic Impressions Diagnostic Impressions: Echocardiogram 02/26/20 10:41 Transthoracic Echocardiogram Indication: Elevated Trop BP: 116/75 HR: 85 Conclusions *Global left ventricular wall motion and contractility are within normal limits. *The estimated ejection fraction is 50-55%. *Abnormal left ventricular diastolic filling is observed, consistent with impaired relaxation. *There is no pericardial effusion. Findings Left Ventricle: The left ventricular chamber size is normal. Global left ventricular wall motion and contractility are within normal limits. Global left ventricular systolic function is normal. The estimated ejection fraction is 50-55%. Abnormal left ventricular diastolic filling is observed, consistent with impaired relaxation. Left Atrium: The left atrial chamber size is normal. Right Ventricle: The right ventricular cavity size is normal. Right Atrium: The right atrial cavity size is normal. Aortic Valve: Mild aortic leaflet calcification is visualized. There is no evidence of aortic regurgitation. Mitral Valve: The mitral valve leaflets are mildly thickened. There is no evidence of mitral regurgitation. Tricuspid Valve: The tricuspid valve leaflets are normal. There is trace tricuspid regurgitation. The right ventricular systolic pressure is calculated at 29 mmHg. Pulmonic Valve: The pulmonic valve is not well visualized. Pericardium: There is no pericardial effusion. Aorta: The aorta appears normal. Venous: The inferior vena cava is dilated. There is less than 50% respiratory change in the inferior vena cava dimension. Measurements Chambers 2D Name Value Normal Range IVSd (2D) 0.97 cm (0.6 - 1.1) LVPWd (2D) 0.93 cm (0.6 - 1.1) LVIDd (2D) 4 cm (3.7 - 5.6) LVIDs (2D) 2.73 cm (2 - 3.8) LV FS (2D) 31.67 % - EF Teichholz (2D) 60.23 % - Ao root diameter (2D) 3.51 cm (2 - 3.7) Volumes/Mass Name Value Normal Range LA ESV SP 4CH (A/L) 8.43 ml - LA ESV SP 2CH (A/L) 18.89 ml - LA ESV BP (A/L) 13.02 ml - LA ESV BP (A/L) index 8.8 ml/m2 - LA ESV SP 4CH (MOD) 7.22 ml - LA ESV SP 2CH (MOD) 18.15 ml - LA ESV BP (MOD) 11.47 ml - LA ESV BP (MOD) index 7.75 ml/m2 - Diastolic/Systolic Function Name Value Normal Range MV E-wave Vmax 0.51 m/sec - MV deceleration time 180.22 msec - MV A-wave Vmax 0.62 m/sec - MV E:A ratio 0.82 ratio - Aortic Valve Name Value Normal Range AV Vmax 1.17 m/sec - AV VTI 19.71 cm - AV peak gradient 5.44 mmHg - AV mean gradient 3.38 mmHg - LVOT diameter 2.26 cm - LVOT Vmax 0.89 m/sec - LVOT VTI 13.72 cm - LVOT peak gradient 3.17 mmHg - LVOT mean gradient 1.67 mmHg - SV LVOT 55.03 ml - SHARAD (continuity Vmax) 3.06 cm2 - SHARAD (continuity VTI) 2.79 cm2 - Tricuspid Valve Name Value Normal Range TR Vmax 2.3 m/sec - TR peak gradient 21 mmHg - RAP 8 mmHg - RVSP 29 mmHg - IVC diameter 2.59 cm (1.2 - 2.3) Pulmonic Valve/Qp:Qs Name Value Normal Range PV acceleration time 68.51 msec - Drake/IV: Voiding Method Indwelling Catheter IV Catheter Type [Right Wrist] INT / Saline Lock IV Catheter Type [Left Hand] INT / Saline Lock IV Catheter Type [Right Hand] Peripheral IV IV Catheter Type [Left Wrist] INT / Saline Lock IV Catheter Type [Right INT / Saline Lock Forearm] IV Catheter Type [Right Triple Lumen Cath Internal Jugular] IV Catheter Type [Left Forearm INT / Saline Lock ] IV Catheter Type [Right Triple Lumen Cath Femoral] IV Catheter Type [Right INT / Saline Lock Antecubital] Active Medications - Current Medications Current Medications: Generic Name Dose Route Start Last Admin Trade Name Jimmieq PRN Reason Stop Dose Admin Acetaminophen 650 mg 02/24/20 15:13 05/11/20 12:07 Acetaminophen 325 Mg Tab PO 650 mg Q4H PRN Administration Pain, Mild (1-3) Albuterol 2.5 mg 02/24/20 15:13 Albuterol 2.5 Mg/3 Ml Nebu IH Q4HRT PRN Shortness Of Breath Alprazolam 0.5 mg 03/30/20 14:19 05/12/20 05:43 Alprazolam 0.5 Mg Tab PO 0.5 mg Q8H PRN Administration Anxiety Lipase/Protease/Amylase 1 each 02/26/20 11:16 Lipase 10,500/Protease 25,000/Amylase 43,750 (Units) Dr Larry FEEDTUBE PRN PRN For Clogged Feeding Tube Aspirin 81 mg 04/28/20 10:00 05/11/20 11:37 Aspirin Ec 81 Mg Tab PO 81 mg QDAY ALISA Administration Baclofen 10 mg 04/03/20 12:00 05/11/20 22:22 Baclofen 10 Mg Tab PO 10 mg BID ALISA Administration Bisacodyl 10 mg 03/12/20 18:00 05/03/20 06:15 Bisacodyl 10 Mg Rect Supp W[place] 10 mg QDAY PRN Administration Bowel Movement Diphenhydramine HCl 25 mg 05/09/20 20:32 05/11/20 22:35 Diphenhydramine 25 Mg/10 Ml Oral Liquid FEEDTUBE 25 mg Q6H PRN Administration Itching Docusate Sodium 100 mg 04/03/20 12:00 05/11/20 22:20 Docusate Sodium 100 Mg/10 Ml Oral Liqd FEEDTUBE 100 mg BID ALISA Administration Enoxaparin Sodium 40 mg 03/20/20 22:00 05/11/20 22:20 Enoxaparin 40 Mg/0.4 Ml Inj SUB-Q 40 mg QDAY@2200 ALISA Administration Protocol Glycopyrrolate 2 mg 04/16/20 20:00 05/12/20 08:39 Glycopyrrolate 1 Mg Tab PO 2 mg TID ALISA Administration Dextrose/Sodium Chloride 1,000 mls @ 42 mls/hr 05/09/20 10:00 05/11/20 12:30 D5ns IV 42 mls/hr DIRECT ALISA Administration Lansoprazole 30 mg 02/28/20 10:00 05/11/20 11:37 Lansoprazole 30 Mg Solutab FEEDTUBE 30 mg QDAY ALISA Administration Lidocaine 1 each 03/31/20 10:00 05/11/20 11:44 Lidocaine 5% 1 Each Patch TD 1 each QDAY ALISA Administration Lidocaine HCl 15 ml 04/15/20 14:00 05/12/20 08:39 Magic Mouthwash 30ml PO 15 ml TID ALISA Administration Magnesium Hydroxide 30 ml 04/12/20 19:20 05/09/20 22:28 Magnesium Hydroxide (Mom) Oral Liqd Udc PO 30 ml Q4H PRN Administration Constipation Metoprolol Tartrate 12.5 mg 02/24/20 22:00 05/11/20 22:23 Metoprolol Tartrate 25 Mg Tab PO 12.5 mg BID ALISA Administration Morphine Sulfate 2 mg 02/29/20 16:42 05/12/20 02:24 Morphine 2 Mg/1 Ml Inj IV 2 mg Q4H PRN Administration Pain, Moderate (4-6) Nitroglycerin 0.4 mg 04/24/20 02:03 Nitroglycerin 0.4 Mg Tab Subl SL .Q5MIN PRN Chest Pain Pregabalin 150 mg 04/03/20 12:00 05/11/20 22:22 Pregabalin 75 Mg Cap PO 150 mg BID ALISA Administration Scopolamine 1 each 03/03/20 14:00 05/11/20 11:37 Scopolamine Transdermal Patch 72 Hr TD 1 each Q3D ALISA Administration Senna 17.2 mg 04/03/20 22:00 05/11/20 22:21 Sennosides 8.6 Mg Tab PO 17.2 mg QHS ALISA Administration Simple Syrup 15 ml 02/26/20 11:16 Simple Syrup 15 Ml FEEDTUBE PRN PRN Hypoglycemia Simple Syrup 30 ml 02/26/20 11:16 Simple Syrup 15 Ml FEEDTUBE PRN PRN Hypoglycemia Sodium Bicarbonate 325 mg 02/26/20 11:16 Sodium Bicarbonate 325 Mg Tab FEEDTUBE PRN PRN For Clogged Feeding Tube Sodium Hypochlorite 1 applic 03/31/20 13:00 05/11/20 22:20 Sodium Hypochlorite, Dakin's 1/2 Strength (0.25%) 473 Ml Topical Soln TP 1 applicatio BID ALISA Administration Tamsulosin HCl 0.4 mg 03/09/20 18:00 05/11/20 11:37 Tamsulosin 0.4 Mg Cap PO 0.4 mg QDAY ALISA Administration Tramadol HCl 50 mg 04/22/20 11:35 05/12/20 05:42 Tramadol 50 Mg Tab PO 50 mg Q6H PRN Administration Pain, Moderate (4-6) Zolpidem Tartrate 10 mg 03/31/20 20:15 05/11/20 22:21 Zolpidem 5 Mg Tab PO 10 mg QHS PRN Administration Sleep Nutrition/Malnutrition Assess - Dietary Evaluation Nutrition/Malnutrition Findings: Nutrition Notes Start: 02/26/20 10:40 Freq: Status: Active Protocol: Document 05/09/20 14:31 CW (Rec: 05/09/20 14:41 CW [email or web address]) Co-Sign 05/09/20 14:31 LP Nutrition Notes Initial or Follow up Reassessment Current Diagnosis Decubitus(Pressure Ulcer), Sepsis,Respiratory Failure Other Pertinent Diagnosis COVID-19 (-), ALS, pneumonia, Hip/buttock PU Current Diet Vital AF 1.2 at 75ml/hr (goal rate) Labs/Tests Reviewed Pertinent Medications Reviewed Height 6 ft Weight 68 kg Burt Body Weight (kg) 80.90 BMI 20.3 Weight Status Appropriate Subjective/Other Information FU for TF tolerance, vent status, wt. Pt remains on the vent with TF running at goal rate. Per RN, pt is tolerating TF. Percent of energy/protein needs met: 100%/100% Burn Absent Trauma Absent GI Symptoms None Skin Integrity/Comment Pressure Ulcer Stage 2 Current % PO Negligible Minimum of two criteria Yes Body Fat Depletion Mild depletion (non-severe) Muscle Mass Mild Depletion (non-severe) Reduced Food Product Inspector Strength Measurably Reduced (severe) #3 Nutrition Diagnosis Malnutrition Diagnosis Progress(for reassessment Continues documentation) #2 Nutrition Diagnosis Inadequate oral intake Diagnosis Progress(for reassessment Continues documentation) #1 Nutrition Diagnosis Increased nutrient needs ( specify in comment below) Diagnosis Progress(for reassessment Continues documentation) Is patient on ventilator? Yes Is Patient Ambulatory and/or Out of Bed No REE-([place] or-confined to bed) 1844.448 Kcal/Kg value to use for calculation 32 Approximate Energy Requirements Using 2176 kcal/Kg Calculation Used for Recommendations Kcal/kg Additional Notes Protein needs: 81-136 g (1.2-2 g/ kg ABW) Fluid: 1ml/kcal Nutrition Intervention Change Diet Order: Continue TF Nutrition Support: Vital AF 1.2 at 75ml/hr. Flush 150ml q4h Kcal 2,160 Protein (gm) 135 Fluid (mL) 1,460 Add Supplement/Snack (indicate name/kcal Will BID /protein ) Provides kCal: 190 Provides Protein (gm) 5 Goal #1 Meet at least 80% of energy and protein needs via TF Goal #2 Wound healing Goal #3 Continue TF tolerance Anticipated Discharge Needs: Unable to determine at this time Follow-Up By: 05/16/20 Additional Comments FU for stable TF, vent status, wt
[2020-05-12] MEDS: LIDOCAINE 5% 1 EACH PATCH TD SCH (10:20)
[2020-05-12] MEDS: BACLOFEN 10 MG TAB PO SCH ×2 (10:20→22:27)
[2020-05-12] MEDS: PREGABALIN 75 MG CAP PO SCH ×2 (10:20→22:28)
[2020-05-12] MEDS: METOPROLOL TARTRATE 25 MG TAB PO SCH ×2 (10:20→22:44)
[2020-05-12] MEDS: ASPIRIN EC 81 MG TAB PO SCH (10:21)
[2020-05-12] MEDS: TAMSULOSIN 0.4 MG CAP PO SCH (10:21)
[2020-05-12] MEDS: DOCUSATE SODIUM 100 MG/10 ML ORAL LIQD FEEDTUBE SCH ×2 (10:21→22:26)
[2020-05-12] MEDS: SODIUM HYPOCHLORITE, DAKIN'S 1/2 STRENGTH (0.25%) 473 ML TOPICAL SOLN TP SCH ×2 (10:21→22:26)
[2020-05-12] MEDS: LANSOPRAZOLE 30 MG SOLUTAB FEEDTUBE SCH (10:22)
[2020-05-12] MEDS: diphenhydrAMINE 25 MG/10 ML ORAL LIQUID FEEDTUBE PRN (10:45)
[2020-05-12] MEDS: D5W/0.9% NACL 1,000 ML IV SCH (10:45)
--- NOTE | 2020-05-12 14:16 | Progress Note ---
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 Respiratory Failure Severe Sepsis with Shock Bilateral Pneumonia (Possible aspiration) History of ALS on Trilogy Oropharyngeal Dysphagia PUI-COVID Acute toxic metabolic encephalopathy Elevated D-dimer Elevated troponin possibly type 2 ischemia - status quo is same, no new issues, discharge planning still ongoing for home ventilator - remains ventilator dependent; refusing SBT's at time and not tolerating when tried - daytime PSV trials as tolerated per patient - continue care as below; - continue home meds re: chronic pain (Baclofen, Lyrica) - continue daily SBT's as tolerated; t-piece trial attempts as tolerated (PSV if fails) - repeat CXR prn +/- bronchoscopy for mucus plugging / large volume atelectasis - continue psychoactive meds for anxiolysis - continue Robinul & scopolamine for secretion control - prn electrolytes and optimize K+ & Mg 2+ for best respiratory muscle function - wound care per RN/WCN - wean supplemental oxygen for target O2 sat's > 90% acutely - bronchodilators with pulmonary hygiene per RT - VAP bundle addressed - continue lung protective strategies - continue bronchodilators with pulmonary hygiene per RT - wean per pulmonary driven protocols otherwise - sedation prn for target RASS 0 to -1 - s/p empiric antiinfectives per ID rec's (Rocephin and Zithromax) - s/p COVID-19 isolation (Airborne & Contact) - s/p Dexamethasone - enteral nutrition at goal rate as tolerated - accuchecks with glycemic control per SSI (While critically ill target blood glucose of 140-180 mg/dL; avoid hypoglycemia) - avoid nephrotoxins, renally dose all medications - avoid benzodiazepine's, reduce the possibility of delirium - prn analgesia per CPOT score - Maintenance of sleep-wake cycle, avoid delirium - aspiration precautions - G.I. & VTE prophylaxis - PT/OT/ROM exercises - mobility protocols for pressure ulcer prophylaxis - Monitor hemodynamics closely - continue other care per attending / other consultants - discharge planning ongoing concurrently .... Re-evaluate in am & prn CONDITION: CRITICAL PROGNOSIS: GUARDED CODE STATUS: FULL CODE The high probability of a clinically significant, sudden or life-threatening deterioration of the [respiratory, cardiovascular & neurologic] system(s) required my full and direct attention, intervention and personal management. The aggregate critical care time was [31] minutes without overlap. Time includes spent on; [x] Data Review and interpretation [x] Patient assessment and monitoring of vital signs [x] Documentation [x] Medication orders and management Subjective Date of service: 05/12/20 Principal diagnosis: Ac on Ch Hypercapnic & hypoxemic Resp Failure; Severe Sepsis; Jamar PNA; ALS Interval history: Patient is seen today for: Acute on Chronic Hypercapnic & hypoxemic Respiratory Failure; Severe Sepsis with Shock; Bilateral Pneumonia (Possible aspiration); History of ALS on Trilogy; PUI-COVID; Acute toxic metabolic encephalopathy Seen and examined at bedside; 24hour events reviewed; nursing and respiratory care staff consulted; no adverse overnight events reported to me; resting in bed; remains on MVS; unfortunately still not tolerating t-piece trials; no N/V/F/C Objective Vital Signs - 12hr 05/12/20 05/12/20 05/12/20 02:24 03:00 04:00 Temperature 98.5 F Pulse Rate 117 H 111 H Pulse Rate [ 110 H From Monitor] Respiratory 15 21 24 Rate Blood Pressure 135/90 129/86 O2 Sat by Pulse 91 95 Oximetry 05/12/20 05/12/20 05/12/20 05:00 05:36 05:42 Temperature Pulse Rate 112 H 115 H Pulse Rate [ From Monitor] Respiratory 16 23 Rate Blood Pressure 118/91 118/91 O2 Sat by Pulse 96 98 Oximetry 05/12/20 05/12/20 05/12/20 06:00 07:00 08:00 Temperature 98.3 F Pulse Rate 111 H 109 H 111 H Pulse Rate [ 112 H From Monitor] Respiratory 26 H 16 24 Rate Blood Pressure 137/88 125/92 134/89 O2 Sat by Pulse 95 95 96 Oximetry 05/12/20 05/12/20 05/12/20 08:03 08:07 09:00 Temperature Pulse Rate 102 H 117 H 114 H Pulse Rate [ From Monitor] Respiratory 30 H 29 H Rate Blood Pressure 134/89 134/89 153/99 O2 Sat by Pulse 96 97 92 Oximetry 05/12/20 05/12/20 05/12/20 10:00 10:20 11:00 Temperature Pulse Rate 118 H 113 H 95 H Pulse Rate [ From Monitor] Respiratory 28 H 25 H Rate Blood Pressure 154/100 154/100 151/94 O2 Sat by Pulse 93 96 Oximetry 05/12/20 05/12/20 11:58 12:00 Temperature 98.2 F Pulse Rate 93 H 92 H Pulse Rate [ 115 H From Monitor] Respiratory 25 H 26 H Rate Blood Pressure 151/94 133/87 O2 Sat by Pulse 98 96 Oximetry Constitutional: no acute distress, other (thin middle aged male with normal respiratory effort at rest on MVS) Eyes: non-icteric ENT: oropharynx moist, other (S/P Tracheostomy) Neck: supple, no lymphadenopathy, no JVD Effort: mildly labored Ascultation: Bilateral: diminished breath sounds (base) Percussion: Bilateral: not dull Cardiovascular: regular rate and rhythm, other (S1,S2, no murmurs) Gastrointestinal: normoactive bowel sounds, soft, non-tender, non-distended, other (+ distended but non tender suprapubis) Integumentary: normal, decubitus ulcer (sacral / gluteal) Extremities: no cyanosis, no edema, pulses normal, other (atrophic looking limbs) Neurologic: pupils equal and round, other (motor strength in extremities 1-2/5, awake, alert, mouths words to make needs known) Psychiatric: mood appropriate, affect normal CBC and BMP: 05/07/20 04:43 05/09/20 16:06 ABG, PT/INR, D-dimer: ABG ABG pH 7.371 (7.320-7.450) 03/08/20 12:34 POC ABG pCO2 63.1 mmHg (32.0-48.0) H 03/08/20 12:34 ABG pCO2 60.1 mm Hg 03/06/20 04:34 POC ABG pO2 90.5 mmHg (83-108) 03/08/20 12:34 ABG pO2 88.6 mm Hg (80.0-90.0) 03/06/20 04:34 POC ABG HCO3 35.7 03/08/20 12:34 ABG O2 Saturation 97.0 % (95.0-99.0) 03/06/20 04:34 PT/INR, D-dimer PT 15.6 Sec. (12.2-14.9) H 02/24/20 09:19 INR 1.21 (0.87-1.13) H 02/24/20 09:19 D-Dimer 1311.96 ng/mlDDU (0-234) H 02/24/20 09:19 Abnormal lab findings: Abnormal Labs 02/24/20 02/24/20 02/24/20 09:19 09:19 09:19 WBC 20.2 H RBC 5.05 H Hgb Hct MCV MCH RDW 15.3 H Plt Count Lymph % (Auto) [place] % (Auto) Lymph # (Auto) [place] # (Auto) Seg Neutrophils % Seg Neuts % (Manual) 86.0 H Lymphocytes % (Manual) 1.0 L Monocytes % (Manual) Basophils % (Manual) Seg Neutrophils # Seg Neutrophils # Man 17.4 H Lymphocytes # (Manual) 0.2 L Monocytes # (Manual) Eosinophils # (Manual) Basophils # (Manual) PT 15.6 H INR 1.21 H D-Dimer 1311.96 H ABG pH POC ABG pCO2 POC ABG pO2 ABG pO2 ABG HCO3 ABG O2 Saturation ABG Base Excess ABG Hemoglobin ABG Oxyhemoglobin ABG Potassium ABG Glucose Oxyhemoglobin Carboxyhemoglobin Sodium 135 L Potassium 3.2 L Chloride 92.2 L Carbon Dioxide BUN 6 L Creatinine < 0.2 L Glucose 124 H POC Glucose Calcium Ferritin Total Bilirubin 2.30 H Alkaline Phosphatase 132 H Lactate Dehydrogenase Total Creatine Kinase CK-MB (CK-2) Rel Index Troponin T 0.080 H C-Reactive Protein Total Protein Albumin 3.6 L Prealbumin LDL Cholesterol Direct 41 L HDL Cholesterol Arterial Blood Glucose Arterial Blood Ionized Calcium Urine WBC (Auto) 02/24/20 02/24/20 02/24/20 09:19 09:58 10:01 WBC RBC Hgb Hct MCV MCH RDW Plt Count Lymph % (Auto) [place] % (Auto) Lymph # (Auto) [place] # (Auto) Seg Neutrophils % Seg Neuts % (Manual) Lymphocytes % (Manual) Monocytes % (Manual) Basophils % (Manual) Seg Neutrophils # Seg Neutrophils # Man Lymphocytes # (Manual) Monocytes # (Manual) Eosinophils # (Manual) Basophils # (Manual) PT INR D-Dimer ABG pH 7.176 L* POC ABG pCO2 POC ABG pO2 ABG pO2 91.2 H ABG HCO3 ABG O2 Saturation ABG Base Excess -4.6 L ABG Hemoglobin ABG Oxyhemoglobin ABG Potassium ABG Glucose Oxyhemoglobin 92.6 L Carboxyhemoglobin Sodium Potassium Chloride Carbon Dioxide BUN Creatinine Glucose POC Glucose Calcium Ferritin 1715.0 H Total Bilirubin Alkaline Phosphatase Lactate Dehydrogenase 303 H Total Creatine Kinase CK-MB (CK-2) Rel Index Troponin T C-Reactive Protein 26.10 H Total Protein Albumin Prealbumin LDL Cholesterol Direct HDL Cholesterol Arterial Blood Glucose Arterial Blood Ionized Calcium Urine WBC (Auto) 02/24/20 02/24/20 02/24/20 11:52 13:45 19:35 WBC RBC Hgb Hct MCV MCH RDW Plt Count Lymph % (Auto) [place] % (Auto) Lymph # (Auto) [place] # (Auto) Seg Neutrophils % Seg Neuts % (Manual) Lymphocytes % (Manual) Monocytes % (Manual) Basophils % (Manual) Seg Neutrophils # Seg Neutrophils # Man Lymphocytes # (Manual) Monocytes # (Manual) Eosinophils # (Manual) Basophils # (Manual) PT INR D-Dimer ABG pH 7.051 L* 7.300 L POC ABG pCO2 POC ABG pO2 ABG pO2 94.7 H 75.1 L ABG HCO3 18.0 L ABG O2 Saturation 93.5 L ABG Base Excess -6.8 L -7.8 L ABG Hemoglobin 13.2 L 11.9 L ABG Oxyhemoglobin ABG Potassium ABG Glucose Oxyhemoglobin 91.0 L 92.7 L Carboxyhemoglobin Sodium Potassium Chloride Carbon Dioxide BUN Creatinine Glucose POC Glucose Calcium Ferritin Total Bilirubin Alkaline Phosphatase Lactate Dehydrogenase Total Creatine Kinase CK-MB (CK-2) Rel Index Troponin T 0.034 H D C-Reactive Protein Total Protein Albumin Prealbumin LDL Cholesterol Direct HDL Cholesterol Arterial Blood Glucose Arterial Blood Ionized Calcium Urine WBC (Auto) 02/25/20 02/25/20 02/25/20 04:00 04:00 12:26 WBC 22.9 H RBC Hgb Hct MCV 83 L MCH 27 L RDW Plt Count 468 H Lymph % (Auto) [place] % (Auto) Lymph # (Auto) [place] # (Auto) Seg Neutrophils % Seg Neuts % (Manual) 89.0 H Lymphocytes % (Manual) 7.0 L Monocytes % (Manual) Basophils % (Manual) Seg Neutrophils # Seg Neutrophils # Man 20.4 H Lymphocytes # (Manual) Monocytes # (Manual) Eosinophils # (Manual) Basophils # (Manual) PT INR D-Dimer ABG pH POC ABG pCO2 POC ABG pO2 ABG pO2 ABG HCO3 ABG O2 Saturation ABG Base Excess ABG Hemoglobin ABG Oxyhemoglobin ABG Potassium 2.6 L ABG Glucose 142 H Oxyhemoglobin Carboxyhemoglobin Sodium Potassium 3.2 L Chloride Carbon Dioxide 18 L BUN Creatinine 0.2 L Glucose 114 H POC Glucose Calcium Ferritin Total Bilirubin Alkaline Phosphatase Lactate Dehydrogenase Total Creatine Kinase CK-MB (CK-2) Rel Index Troponin T C-Reactive Protein Total Protein Albumin 3.5 L Prealbumin LDL Cholesterol Direct HDL Cholesterol Arterial Blood Glucose 142 H Arterial Blood Ionized Calcium Urine WBC (Auto) 02/26/20 02/26/20 02/26/20 15:58 17:00 23:43 WBC RBC Hgb Hct MCV MCH RDW Plt Count Lymph % (Auto) [place] % (Auto) Lymph # (Auto) [place] # (Auto) Seg Neutrophils % Seg Neuts % (Manual) Lymphocytes % (Manual) Monocytes % (Manual) Basophils % (Manual) Seg Neutrophils # Seg Neutrophils # Man Lymphocytes # (Manual) Monocytes # (Manual) Eosinophils # (Manual) Basophils # (Manual) PT INR D-Dimer ABG pH 7.502 H POC ABG pCO2 POC ABG pO2 213.6 H ABG pO2 ABG HCO3 ABG O2 Saturation ABG Base Excess ABG Hemoglobin ABG Oxyhemoglobin 99.2 H ABG Potassium 2.9 L ABG Glucose 160 H Oxyhemoglobin Carboxyhemoglobin 0.4 L Sodium Potassium Chloride Carbon Dioxide BUN Creatinine Glucose POC Glucose 189 H 120 H Calcium Ferritin Total Bilirubin Alkaline Phosphatase Lactate Dehydrogenase Total Creatine Kinase CK-MB (CK-2) Rel Index Troponin T C-Reactive Protein Total Protein Albumin Prealbumin LDL Cholesterol Direct HDL Cholesterol Arterial Blood Glucose 160 H Arterial Blood Ionized Calcium 4.5 L Urine WBC (Auto) 02/27/20 02/27/20 02/27/20 05:00 07:04 17:45 WBC RBC Hgb Hct MCV MCH RDW Plt Count Lymph % (Auto) [place] % (Auto) Lymph # (Auto) [place] # (Auto) Seg Neutrophils % Seg Neuts % (Manual) Lymphocytes % (Manual) Monocytes % (Manual) Basophils % (Manual) Seg Neutrophils # Seg Neutrophils # Man Lymphocytes # (Manual) Monocytes # (Manual) Eosinophils # (Manual) Basophils # (Manual) PT INR D-Dimer ABG pH 7.524 H POC ABG pCO2 POC ABG pO2 ABG pO2 ABG HCO3 ABG O2 Saturation ABG Base Excess ABG Hemoglobin ABG Oxyhemoglobin ABG Potassium 3.0 L ABG Glucose 143 H Oxyhemoglobin Carboxyhemoglobin Sodium Potassium Chloride Carbon Dioxide BUN Creatinine Glucose POC Glucose 154 H 175 H Calcium Ferritin Total Bilirubin Alkaline Phosphatase Lactate Dehydrogenase Total Creatine Kinase CK-MB (CK-2) Rel Index Troponin T C-Reactive Protein Total Protein Albumin Prealbumin LDL Cholesterol Direct HDL Cholesterol Arterial Blood Glucose 143 H Arterial Blood Ionized Calcium Urine WBC (Auto) 02/27/20 02/28/20 02/28/20 Unknown 00:21 04:15 WBC 18.7 H RBC Hgb Hct MCV MCH RDW Plt Count Lymph % (Auto) 8.7 L [place] % (Auto) Lymph # (Auto) [place] # (Auto) 1.2 H Seg Neutrophils % 84.6 H Seg Neuts % (Manual) Lymphocytes % (Manual) Monocytes % (Manual) Basophils % (Manual) Seg Neutrophils # 15.9 H Seg Neutrophils # Man Lymphocytes # (Manual) Monocytes # (Manual) Eosinophils # (Manual) Basophils # (Manual) PT INR D-Dimer ABG pH POC ABG pCO2 POC ABG pO2 ABG pO2 ABG HCO3 ABG O2 Saturation ABG Base Excess ABG Hemoglobin ABG Oxyhemoglobin ABG Potassium ABG Glucose Oxyhemoglobin Carboxyhemoglobin Sodium Potassium 2.9 L* Chloride Carbon Dioxide 33 H D BUN Creatinine < 0.2 L Glucose 157 H POC Glucose 134 H Calcium Ferritin Total Bilirubin Alkaline Phosphatase Lactate Dehydrogenase Total Creatine Kinase CK-MB (CK-2) Rel Index Troponin T C-Reactive Protein Total Protein Albumin Prealbumin LDL Cholesterol Direct HDL Cholesterol Arterial Blood Glucose Arterial Blood Ionized Calcium Urine WBC (Auto) 02/28/20 02/28/20 02/28/20 04:15 05:16 05:39 WBC RBC Hgb Hct MCV MCH RDW Plt Count Lymph % (Auto) [place] % (Auto) Lymph # (Auto) [place] # (Auto) Seg Neutrophils % Seg Neuts % (Manual) Lymphocytes % (Manual) Monocytes % (Manual) Basophils % (Manual) Seg Neutrophils # Seg Neutrophils # Man Lymphocytes # (Manual) Monocytes # (Manual) Eosinophils # (Manual) Basophils # (Manual) PT INR D-Dimer ABG pH POC ABG pCO2 POC ABG pO2 ABG pO2 142.9 H ABG HCO3 34.1 H ABG O2 Saturation ABG Base Excess 8.3 H ABG Hemoglobin ABG Oxyhemoglobin ABG Potassium ABG Glucose Oxyhemoglobin Carboxyhemoglobin Sodium 151 H Potassium Chloride Carbon Dioxide 32 H BUN Creatinine 0.2 L Glucose 167 H POC Glucose 138 H Calcium Ferritin Total Bilirubin Alkaline Phosphatase Lactate Dehydrogenase Total Creatine Kinase CK-MB (CK-2) Rel Index Troponin T C-Reactive Protein Total Protein Albumin Prealbumin LDL Cholesterol Direct HDL Cholesterol Arterial Blood Glucose Arterial Blood Ionized Calcium Urine WBC (Auto) 02/28/20 02/28/20 02/28/20 11:05 11:33 12:54 WBC RBC Hgb Hct MCV MCH RDW Plt Count Lymph % (Auto) [place] % (Auto) Lymph # (Auto) [place] # (Auto) Seg Neutrophils % Seg Neuts % (Manual) Lymphocytes % (Manual) Monocytes % (Manual) Basophils % (Manual) Seg Neutrophils # Seg Neutrophils # Man Lymphocytes # (Manual) Monocytes # (Manual) Eosinophils # (Manual) Basophils # (Manual) PT INR D-Dimer ABG pH POC ABG pCO2 POC ABG pO2 ABG pO2 ABG HCO3 ABG O2 Saturation ABG Base Excess ABG Hemoglobin ABG Oxyhemoglobin ABG Potassium ABG Glucose Oxyhemoglobin Carboxyhemoglobin Sodium Potassium Chloride Carbon Dioxide BUN Creatinine Glucose POC Glucose 160 H Calcium Ferritin Total Bilirubin Alkaline Phosphatase Lactate Dehydrogenase Total Creatine Kinase CK-MB (CK-2) Rel Index Troponin T C-Reactive Protein 4.70 H Total Protein Albumin Prealbumin 0.090 L LDL Cholesterol Direct HDL Cholesterol Arterial Blood Glucose Arterial Blood Ionized Calcium Urine WBC (Auto) 02/28/20 02/29/20 02/29/20 17:34 00:44 04:05 WBC 19.6 H RBC Hgb Hct MCV MCH 27 L RDW 15.4 H Plt Count Lymph % (Auto) [place] % (Auto) Lymph # (Auto) [place] # (Auto) Seg Neutrophils % Seg Neuts % (Manual) 86.0 H Lymphocytes % (Manual) 7.0 L Monocytes % (Manual) Basophils % (Manual) Seg Neutrophils # Seg Neutrophils # Man 16.9 H Lymphocytes # (Manual) Monocytes # (Manual) 1.2 H Eosinophils # (Manual) Basophils # (Manual) PT INR D-Dimer ABG pH POC ABG pCO2 POC ABG pO2 ABG pO2 ABG HCO3 ABG O2 Saturation ABG Base Excess ABG Hemoglobin ABG Oxyhemoglobin ABG Potassium ABG Glucose Oxyhemoglobin Carboxyhemoglobin Sodium Potassium Chloride Carbon Dioxide BUN Creatinine Glucose POC Glucose 136 H 156 H Calcium Ferritin Total Bilirubin Alkaline Phosphatase Lactate Dehydrogenase Total Creatine Kinase CK-MB (CK-2) Rel Index Troponin T C-Reactive Protein Total Protein Albumin Prealbumin LDL Cholesterol Direct HDL Cholesterol Arterial Blood Glucose Arterial Blood Ionized Calcium Urine WBC (Auto) 02/29/20 02/29/20 02/29/20 04:05 05:14 05:33 WBC RBC Hgb Hct MCV MCH RDW Plt Count Lymph % (Auto) [place] % (Auto) Lymph # (Auto) [place] # (Auto) Seg Neutrophils % Seg Neuts % (Manual) Lymphocytes % (Manual) Monocytes % (Manual) Basophils % (Manual) Seg Neutrophils # Seg Neutrophils # Man Lymphocytes # (Manual) Monocytes # (Manual) Eosinophils # (Manual) Basophils # (Manual) PT INR D-Dimer ABG pH POC ABG pCO2 54.3 H POC ABG pO2 124.8 H ABG pO2 ABG HCO3 ABG O2 Saturation ABG Base Excess ABG Hemoglobin ABG Oxyhemoglobin ABG Potassium ABG Glucose 185 H Oxyhemoglobin Carboxyhemoglobin Sodium 148 H Potassium Chloride Carbon Dioxide 33 H BUN Creatinine < 0.2 L Glucose 173 H POC Glucose 152 H Calcium Ferritin Total Bilirubin Alkaline Phosphatase Lactate Dehydrogenase Total Creatine Kinase CK-MB (CK-2) Rel Index Troponin T C-Reactive Protein Total Protein Albumin Prealbumin LDL Cholesterol Direct HDL Cholesterol Arterial Blood Glucose 185 H Arterial Blood Ionized Calcium Urine WBC (Auto) 03/01/20 03/01/20 03/01/20 00:00 03:45 04:33 WBC 23.1 H RBC Hgb Hct MCV MCH 27 L RDW 15.3 H Plt Count Lymph % (Auto) [place] % (Auto) Lymph # (Auto) [place] # (Auto) Seg Neutrophils % Seg Neuts % (Manual) 92.0 H Lymphocytes % (Manual) 6.0 L Monocytes % (Manual) Basophils % (Manual) Seg Neutrophils # Seg Neutrophils # Man 21.3 H Lymphocytes # (Manual) Monocytes # (Manual) Eosinophils # (Manual) 0.5 H Basophils # (Manual) PT INR D-Dimer ABG pH 7.492 H POC ABG pCO2 POC ABG pO2 ABG pO2 157.1 H ABG HCO3 32.3 H ABG O2 Saturation ABG Base Excess 8.1 H ABG Hemoglobin 13.2 L ABG Oxyhemoglobin ABG Potassium ABG Glucose Oxyhemoglobin Carboxyhemoglobin Sodium Potassium Chloride Carbon Dioxide BUN Creatinine Glucose POC Glucose 109 H Calcium Ferritin Total Bilirubin Alkaline Phosphatase Lactate Dehydrogenase Total Creatine Kinase CK-MB (CK-2) Rel Index Troponin T C-Reactive Protein Total Protein Albumin Prealbumin LDL Cholesterol Direct HDL Cholesterol Arterial Blood Glucose Arterial Blood Ionized Calcium Urine WBC (Auto) 03/01/20 03/01/20 03/01/20 04:33 05:29 12:32 WBC RBC Hgb Hct MCV MCH RDW Plt Count Lymph % (Auto) [place] % (Auto) Lymph # (Auto) [place] # (Auto) Seg Neutrophils % Seg Neuts % (Manual) Lymphocytes % (Manual) Monocytes % (Manual) Basophils % (Manual) Seg Neutrophils # Seg Neutrophils # Man Lymphocytes # (Manual) Monocytes # (Manual) Eosinophils # (Manual) Basophils # (Manual) PT INR D-Dimer ABG pH POC ABG pCO2 POC ABG pO2 ABG pO2 ABG HCO3 ABG O2 Saturation ABG Base Excess ABG Hemoglobin ABG Oxyhemoglobin ABG Potassium ABG Glucose Oxyhemoglobin Carboxyhemoglobin Sodium 146 H Potassium Chloride Carbon Dioxide 32 H BUN Creatinine < 0.2 L Glucose 120 H POC Glucose 120 H 128 H Calcium Ferritin Total Bilirubin Alkaline Phosphatase Lactate Dehydrogenase Total Creatine Kinase CK-MB (CK-2) Rel Index Troponin T C-Reactive Protein Total Protein Albumin Prealbumin LDL Cholesterol Direct HDL Cholesterol Arterial Blood Glucose Arterial Blood Ionized Calcium Urine WBC (Auto) 03/01/20 03/01/20 03/02/20 17:38 23:46 06:13 WBC RBC Hgb Hct MCV MCH RDW Plt Count Lymph % (Auto) [place] % (Auto) Lymph # (Auto) [place] # (Auto) Seg Neutrophils % Seg Neuts % (Manual) Lymphocytes % (Manual) Monocytes % (Manual) Basophils % (Manual) Seg Neutrophils # Seg Neutrophils # Man Lymphocytes # (Manual) Monocytes # (Manual) Eosinophils # (Manual) Basophils # (Manual) PT INR D-Dimer ABG pH POC ABG pCO2 POC ABG pO2 ABG pO2 ABG HCO3 ABG O2 Saturation ABG Base Excess ABG Hemoglobin ABG Oxyhemoglobin ABG Potassium ABG Glucose Oxyhemoglobin Carboxyhemoglobin Sodium Potassium Chloride Carbon Dioxide BUN Creatinine Glucose POC Glucose 114 H 121 H 120 H Calcium Ferritin Total Bilirubin Alkaline Phosphatase Lactate Dehydrogenase Total Creatine Kinase CK-MB (CK-2) Rel Index Troponin T C-Reactive Protein Total Protein Albumin Prealbumin LDL Cholesterol Direct HDL Cholesterol Arterial Blood Glucose Arterial Blood Ionized Calcium Urine WBC (Auto) 03/02/20 03/02/20 03/03/20 09:47 09:47 10:21 WBC 23.6 H RBC Hgb Hct MCV MCH RDW 15.3 H Plt Count 494 H Lymph % (Auto) [place] % (Auto) Lymph # (Auto) [place] # (Auto) Seg Neutrophils % Seg Neuts % (Manual) 85.0 H Lymphocytes % (Manual) 6.0 L Monocytes % (Manual) Basophils % (Manual) Seg Neutrophils # Seg Neutrophils # Man 20.1 H Lymphocytes # (Manual) Monocytes # (Manual) 1.7 H Eosinophils # (Manual) Basophils # (Manual) PT INR D-Dimer ABG pH POC ABG pCO2 POC ABG pO2 ABG pO2 ABG HCO3 ABG O2 Saturation ABG Base Excess ABG Hemoglobin ABG Oxyhemoglobin ABG Potassium 3.3 L ABG Glucose 158 H Oxyhemoglobin Carboxyhemoglobin Sodium Potassium Chloride Carbon Dioxide BUN Creatinine < 0.2 L Glucose 177 H POC Glucose Calcium Ferritin Total Bilirubin Alkaline Phosphatase Lactate Dehydrogenase Total Creatine Kinase CK-MB (CK-2) Rel Index Troponin T C-Reactive Protein Total Protein Albumin Prealbumin LDL Cholesterol Direct HDL Cholesterol Arterial Blood Glucose 158 H Arterial Blood Ionized Calcium Urine WBC (Auto) 03/03/20 03/04/20 03/04/20 21:30 00:00 12:23 WBC RBC Hgb Hct MCV MCH RDW Plt Count Lymph % (Auto) [place] % (Auto) Lymph # (Auto) [place] # (Auto) Seg Neutrophils % Seg Neuts % (Manual) Lymphocytes % (Manual) Monocytes % (Manual) Basophils % (Manual) Seg Neutrophils # Seg Neutrophils # Man Lymphocytes # (Manual) Monocytes # (Manual) Eosinophils # (Manual) Basophils # (Manual) PT INR D-Dimer ABG pH 7.328 L POC ABG pCO2 POC ABG pO2 ABG pO2 68.4 L ABG HCO3 35.0 H ABG O2 Saturation 93.9 L ABG Base Excess 6.8 H ABG Hemoglobin 12.7 L ABG Oxyhemoglobin ABG Potassium ABG Glucose Oxyhemoglobin 91.9 L Carboxyhemoglobin Sodium Potassium Chloride Carbon Dioxide BUN Creatinine Glucose POC Glucose 187 H 163 H Calcium Ferritin Total Bilirubin Alkaline Phosphatase Lactate Dehydrogenase Total Creatine Kinase CK-MB (CK-2) Rel Index Troponin T C-Reactive Protein Total Protein Albumin Prealbumin LDL Cholesterol Direct HDL Cholesterol Arterial Blood Glucose Arterial Blood Ionized Calcium Urine WBC (Auto) 03/04/20 03/04/20 03/05/20 18:15 21:30 06:02 WBC RBC Hgb Hct MCV MCH RDW Plt Count Lymph % (Auto) [place] % (Auto) Lymph # (Auto) [place] # (Auto) Seg Neutrophils % Seg Neuts % (Manual) Lymphocytes % (Manual) Monocytes % (Manual) Basophils % (Manual) Seg Neutrophils # Seg Neutrophils # Man Lymphocytes # (Manual) Monocytes # (Manual) Eosinophils # (Manual) Basophils # (Manual) PT INR D-Dimer ABG pH 7.297 L POC ABG pCO2 POC ABG pO2 ABG pO2 ABG HCO3 41.0 H ABG O2 Saturation ABG Base Excess 11.0 H ABG Hemoglobin 13.1 L ABG Oxyhemoglobin ABG Potassium ABG Glucose Oxyhemoglobin 94.5 L Carboxyhemoglobin Sodium Potassium Chloride Carbon Dioxide BUN Creatinine Glucose POC Glucose 192 H 127 H Calcium Ferritin Total Bilirubin Alkaline Phosphatase Lactate Dehydrogenase Total Creatine Kinase CK-MB (CK-2) Rel Index Troponin T C-Reactive Protein Total Protein Albumin Prealbumin LDL Cholesterol Direct HDL Cholesterol Arterial Blood Glucose Arterial Blood Ionized Calcium Urine WBC (Auto) 03/05/20 03/05/20 03/06/20 12:09 16:42 00:24 WBC RBC Hgb Hct MCV MCH RDW Plt Count Lymph % (Auto) [place] % (Auto) Lymph # (Auto) [place] # (Auto) Seg Neutrophils % Seg Neuts % (Manual) Lymphocytes % (Manual) Monocytes % (Manual) Basophils % (Manual) Seg Neutrophils # Seg Neutrophils # Man Lymphocytes # (Manual) Monocytes # (Manual) Eosinophils # (Manual) Basophils # (Manual) PT INR D-Dimer ABG pH POC ABG pCO2 POC ABG pO2 ABG pO2 ABG HCO3 ABG O2 Saturation ABG Base Excess ABG Hemoglobin ABG Oxyhemoglobin ABG Potassium ABG Glucose Oxyhemoglobin Carboxyhemoglobin Sodium Potassium Chloride Carbon Dioxide BUN Creatinine Glucose POC Glucose 147 H 114 H 134 H Calcium Ferritin Total Bilirubin Alkaline Phosphatase Lactate Dehydrogenase Total Creatine Kinase CK-MB (CK-2) Rel Index Troponin T C-Reactive Protein Total Protein Albumin Prealbumin LDL Cholesterol Direct HDL Cholesterol Arterial Blood Glucose Arterial Blood Ionized Calcium Urine WBC (Auto) 03/06/20 03/06/20 03/06/20 04:34 05:53 06:08 WBC 25.4 H RBC Hgb 10.5 L Hct 32.7 L MCV MCH 27 L RDW 15.3 H Plt Count 634 H Lymph % (Auto) [place] % (Auto) Lymph # (Auto) [place] # (Auto) Seg Neutrophils % Seg Neuts % (Manual) 88.0 H Lymphocytes % (Manual) 2.0 L Monocytes % (Manual) 8.0 H Basophils % (Manual) Seg Neutrophils # Seg Neutrophils # Man 22.4 H Lymphocytes # (Manual) 0.5 L Monocytes # (Manual) 2.0 H Eosinophils # (Manual) Basophils # (Manual) PT INR D-Dimer ABG pH POC ABG pCO2 POC ABG pO2 ABG pO2 ABG HCO3 37.9 H ABG O2 Saturation ABG Base Excess 11.4 H ABG Hemoglobin 10.6 L ABG Oxyhemoglobin ABG Potassium ABG Glucose Oxyhemoglobin 94.7 L Carboxyhemoglobin Sodium Potassium Chloride Carbon Dioxide BUN Creatinine Glucose POC Glucose 135 H Calcium Ferritin Total Bilirubin Alkaline Phosphatase Lactate Dehydrogenase Total Creatine Kinase CK-MB (CK-2) Rel Index Troponin T C-Reactive Protein Total Protein Albumin Prealbumin LDL Cholesterol Direct HDL Cholesterol Arterial Blood Glucose Arterial Blood Ionized Calcium Urine WBC (Auto) 03/06/20 03/06/20 03/06/20 06:08 12:19 19:10 WBC RBC Hgb Hct MCV MCH RDW Plt Count Lymph % (Auto) [place] % (Auto) Lymph # (Auto) [place] # (Auto) Seg Neutrophils % Seg Neuts % (Manual) Lymphocytes % (Manual) Monocytes % (Manual) Basophils % (Manual) Seg Neutrophils # Seg Neutrophils # Man Lymphocytes # (Manual) Monocytes # (Manual) Eosinophils # (Manual) Basophils # (Manual) PT INR D-Dimer ABG pH POC ABG pCO2 POC ABG pO2 ABG pO2 ABG HCO3 ABG O2 Saturation ABG Base Excess ABG Hemoglobin ABG Oxyhemoglobin ABG Potassium ABG Glucose Oxyhemoglobin Carboxyhemoglobin Sodium 150 H D Potassium Chloride Carbon Dioxide 39 H D BUN 23 H Creatinine < 0.2 L Glucose 144 H POC Glucose 169 H 152 H Calcium Ferritin Total Bilirubin Alkaline Phosphatase Lactate Dehydrogenase Total Creatine Kinase CK-MB (CK-2) Rel Index Troponin T C-Reactive Protein Total Protein Albumin 3.3 L Prealbumin LDL Cholesterol Direct HDL Cholesterol Arterial Blood Glucose Arterial Blood Ionized Calcium Urine WBC (Auto) 03/06/20 03/07/20 03/07/20 23:58 04:25 04:25 WBC 22.1 H RBC Hgb 10.9 L Hct 32.9 L MCV MCH RDW 15.5 H Plt Count 739 H Lymph % (Auto) 7.8 L [place] % (Auto) Lymph # (Auto) [place] # (Auto) 1.3 H Seg Neutrophils % 85.5 H Seg Neuts % (Manual) Lymphocytes % (Manual) Monocytes % (Manual) Basophils % (Manual) Seg Neutrophils # 18.9 H Seg Neutrophils # Man Lymphocytes # (Manual) Monocytes # (Manual) Eosinophils # (Manual) Basophils # (Manual) PT INR D-Dimer ABG pH POC ABG pCO2 POC ABG pO2 ABG pO2 ABG HCO3 ABG O2 Saturation ABG Base Excess ABG Hemoglobin ABG Oxyhemoglobin ABG Potassium ABG Glucose Oxyhemoglobin Carboxyhemoglobin Sodium 146 H Potassium Chloride Carbon Dioxide 37 H BUN Creatinine < 0.2 L Glucose 118 H POC Glucose 111 H Calcium Ferritin Total Bilirubin Alkaline Phosphatase Lactate Dehydrogenase Total Creatine Kinase CK-MB (CK-2) Rel Index Troponin T C-Reactive Protein Total Protein Albumin 3.7 L Prealbumin LDL Cholesterol Direct HDL Cholesterol Arterial Blood Glucose Arterial Blood Ionized Calcium Urine WBC (Auto) 03/07/20 03/07/20 03/07/20 05:20 17:45 23:32 WBC RBC Hgb Hct MCV MCH RDW Plt Count Lymph % (Auto) [place] % (Auto) Lymph # (Auto) [place] # (Auto) Seg Neutrophils % Seg Neuts % (Manual) Lymphocytes % (Manual) Monocytes % (Manual) Basophils % (Manual) Seg Neutrophils # Seg Neutrophils # Man Lymphocytes # (Manual) Monocytes # (Manual) Eosinophils # (Manual) Basophils # (Manual) PT INR D-Dimer ABG pH POC ABG pCO2 POC ABG pO2 ABG pO2 ABG HCO3 ABG O2 Saturation ABG Base Excess ABG Hemoglobin ABG Oxyhemoglobin ABG Potassium ABG Glucose Oxyhemoglobin Carboxyhemoglobin Sodium Potassium Chloride Carbon Dioxide BUN Creatinine Glucose POC Glucose 113 H 124 H 210 H Calcium Ferritin Total Bilirubin Alkaline Phosphatase Lactate Dehydrogenase Total Creatine Kinase CK-MB (CK-2) Rel Index Troponin T C-Reactive Protein Total Protein Albumin Prealbumin LDL Cholesterol Direct HDL Cholesterol Arterial Blood Glucose Arterial Blood Ionized Calcium Urine WBC (Auto) 03/08/20 03/08/20 03/08/20 05:35 06:43 06:43 WBC 28.9 H RBC 3.53 L Hgb 9.7 L Hct 30.3 L MCV MCH RDW 15.6 H Plt Count 578 H Lymph % (Auto) [place] % (Auto) Lymph # (Auto) [place] # (Auto) Seg Neutrophils % Seg Neuts % (Manual) 93.0 H Lymphocytes % (Manual) 4.0 L Monocytes % (Manual) Basophils % (Manual) Seg Neutrophils # Seg Neutrophils # Man 26.9 H Lymphocytes # (Manual) Monocytes # (Manual) Eosinophils # (Manual) Basophils # (Manual) PT INR D-Dimer ABG pH POC ABG pCO2 POC ABG pO2 ABG pO2 ABG HCO3 ABG O2 Saturation ABG Base Excess ABG Hemoglobin ABG Oxyhemoglobin ABG Potassium ABG Glucose Oxyhemoglobin Carboxyhemoglobin Sodium 146 H Potassium Chloride Carbon Dioxide 35 H BUN 34 H Creatinine 0.3 L D Glucose 125 H POC Glucose 147 H Calcium Ferritin Total Bilirubin Alkaline Phosphatase Lactate Dehydrogenase Total Creatine Kinase CK-MB (CK-2) Rel Index Troponin T C-Reactive Protein Total Protein 5.9 L Albumin 3.2 L Prealbumin LDL Cholesterol Direct HDL Cholesterol Arterial Blood Glucose Arterial Blood Ionized Calcium Urine WBC (Auto) 03/08/20 03/08/20 03/08/20 08:57 11:14 12:34 WBC RBC Hgb Hct MCV MCH RDW Plt Count Lymph % (Auto) [place] % (Auto) Lymph # (Auto) [place] # (Auto) Seg Neutrophils % Seg Neuts % (Manual) Lymphocytes % (Manual) Monocytes % (Manual) Basophils % (Manual) Seg Neutrophils # Seg Neutrophils # Man Lymphocytes # (Manual) Monocytes # (Manual) Eosinophils # (Manual) Basophils # (Manual) PT INR D-Dimer ABG pH POC ABG pCO2 63.1 H POC ABG pO2 ABG pO2 ABG HCO3 ABG O2 Saturation ABG Base Excess ABG Hemoglobin 10.9 L ABG Oxyhemoglobin ABG Potassium ABG Glucose 176 H Oxyhemoglobin Carboxyhemoglobin Sodium Potassium Chloride Carbon Dioxide BUN Creatinine Glucose POC Glucose 171 H Calcium Ferritin Total Bilirubin Alkaline Phosphatase Lactate Dehydrogenase Total Creatine Kinase CK-MB (CK-2) Rel Index Troponin T C-Reactive Protein Total Protein Albumin Prealbumin LDL Cholesterol Direct HDL Cholesterol Arterial Blood Glucose 176 H Arterial Blood Ionized Calcium 4.5 L Urine WBC (Auto) 10.0 H 03/08/20 03/08/20 03/09/20 18:02 23:43 05:49 WBC RBC Hgb Hct MCV MCH RDW Plt Count Lymph % (Auto) [place] % (Auto) Lymph # (Auto) [place] # (Auto) Seg Neutrophils % Seg Neuts % (Manual) Lymphocytes % (Manual) Monocytes % (Manual) Basophils % (Manual) Seg Neutrophils # Seg Neutrophils # Man Lymphocytes # (Manual) Monocytes # (Manual) Eosinophils # (Manual) Basophils # (Manual) PT INR D-Dimer ABG pH POC ABG pCO2 POC ABG pO2 ABG pO2 ABG HCO3 ABG O2 Saturation ABG Base Excess ABG Hemoglobin ABG Oxyhemoglobin ABG Potassium ABG Glucose Oxyhemoglobin Carboxyhemoglobin Sodium Potassium Chloride Carbon Dioxide BUN Creatinine Glucose POC Glucose 157 H 134 H 163 H Calcium Ferritin Total Bilirubin Alkaline Phosphatase Lactate Dehydrogenase Total Creatine Kinase CK-MB (CK-2) Rel Index Troponin T C-Reactive Protein Total Protein Albumin Prealbumin LDL Cholesterol Direct HDL Cholesterol Arterial Blood Glucose Arterial Blood Ionized Calcium Urine WBC (Auto) 03/09/20 03/09/20 03/09/20 08:35 08:35 12:11 WBC 23.4 H RBC 3.36 L Hgb 9.3 L Hct 28.8 L MCV MCH RDW 15.9 H Plt Count 521 H Lymph % (Auto) [place] % (Auto) Lymph # (Auto) [place] # (Auto) Seg Neutrophils % Seg Neuts % (Manual) 87.0 H Lymphocytes % (Manual) 4.0 L Monocytes % (Manual) 9.0 H Basophils % (Manual) Seg Neutrophils # Seg Neutrophils # Man 20.4 H Lymphocytes # (Manual) 0.9 L Monocytes # (Manual) 2.1 H Eosinophils # (Manual) Basophils # (Manual) PT INR D-Dimer ABG pH POC ABG pCO2 POC ABG pO2 ABG pO2 ABG HCO3 ABG O2 Saturation ABG Base Excess ABG Hemoglobin ABG Oxyhemoglobin ABG Potassium ABG Glucose Oxyhemoglobin Carboxyhemoglobin Sodium 147 H Potassium Chloride Carbon Dioxide 37 H BUN 63 H Creatinine Glucose 154 H POC Glucose 128 H Calcium Ferritin Total Bilirubin Alkaline Phosphatase Lactate Dehydrogenase Total Creatine Kinase CK-MB (CK-2) Rel Index Troponin T C-Reactive Protein Total Protein Albumin Prealbumin LDL Cholesterol Direct HDL Cholesterol Arterial Blood Glucose Arterial Blood Ionized Calcium Urine WBC (Auto) 03/09/20 03/10/20 03/10/20 17:51 00:25 05:41 WBC RBC Hgb Hct MCV MCH RDW Plt Count Lymph % (Auto) [place] % (Auto) Lymph # (Auto) [place] # (Auto) Seg Neutrophils % Seg Neuts % (Manual) Lymphocytes % (Manual) Monocytes % (Manual) Basophils % (Manual) Seg Neutrophils # Seg Neutrophils # Man Lymphocytes # (Manual) Monocytes # (Manual) Eosinophils # (Manual) Basophils # (Manual) PT INR D-Dimer ABG pH POC ABG pCO2 POC ABG pO2 ABG pO2 ABG HCO3 ABG O2 Saturation ABG Base Excess ABG Hemoglobin ABG Oxyhemoglobin ABG Potassium ABG Glucose Oxyhemoglobin Carboxyhemoglobin Sodium Potassium Chloride Carbon Dioxide BUN Creatinine Glucose POC Glucose 127 H 128 H 153 H Calcium Ferritin Total Bilirubin Alkaline Phosphatase Lactate Dehydrogenase Total Creatine Kinase CK-MB (CK-2) Rel Index Troponin T C-Reactive Protein Total Protein Albumin Prealbumin LDL Cholesterol Direct HDL Cholesterol Arterial Blood Glucose Arterial Blood Ionized Calcium Urine WBC (Auto) 03/10/20 03/10/20 03/10/20 06:14 06:14 12:02 WBC 18.3 H RBC 3.45 L Hgb 9.5 L Hct 29.5 L MCV MCH RDW 16.1 H Plt Count 494 H Lymph % (Auto) [place] % (Auto) Lymph # (Auto) [place] # (Auto) Seg Neutrophils % Seg Neuts % (Manual) 95.0 H Lymphocytes % (Manual) 1.0 L Monocytes % (Manual) Basophils % (Manual) Seg Neutrophils # Seg Neutrophils # Man 17.4 H Lymphocytes # (Manual) 0.2 L Monocytes # (Manual) Eosinophils # (Manual) Basophils # (Manual) PT INR D-Dimer ABG pH POC ABG pCO2 POC ABG pO2 ABG pO2 ABG HCO3 ABG O2 Saturation ABG Base Excess ABG Hemoglobin ABG Oxyhemoglobin ABG Potassium ABG Glucose Oxyhemoglobin Carboxyhemoglobin Sodium 149 H Potassium Chloride Carbon Dioxide 35 H BUN 34 H Creatinine 0.2 L D Glucose 177 H POC Glucose 151 H Calcium Ferritin Total Bilirubin Alkaline Phosphatase Lactate Dehydrogenase Total Creatine Kinase CK-MB (CK-2) Rel Index Troponin T C-Reactive Protein Total Protein Albumin Prealbumin LDL Cholesterol Direct HDL Cholesterol Arterial Blood Glucose Arterial Blood Ionized Calcium Urine WBC (Auto) 03/10/20 03/10/20 03/11/20 17:41 23:53 05:02 WBC RBC Hgb Hct MCV MCH RDW Plt Count Lymph % (Auto) [place] % (Auto) Lymph # (Auto) [place] # (Auto) Seg Neutrophils % Seg Neuts % (Manual) Lymphocytes % (Manual) Monocytes % (Manual) Basophils % (Manual) Seg Neutrophils # Seg Neutrophils # Man Lymphocytes # (Manual) Monocytes # (Manual) Eosinophils # (Manual) Basophils # (Manual) PT INR D-Dimer ABG pH POC ABG pCO2 POC ABG pO2 ABG pO2 ABG HCO3 ABG O2 Saturation ABG Base Excess ABG Hemoglobin ABG Oxyhemoglobin ABG Potassium ABG Glucose Oxyhemoglobin Carboxyhemoglobin Sodium Potassium Chloride Carbon Dioxide BUN Creatinine Glucose POC Glucose 168 H 142 H 146 H Calcium Ferritin Total Bilirubin Alkaline Phosphatase Lactate Dehydrogenase Total Creatine Kinase CK-MB (CK-2) Rel Index Troponin T C-Reactive Protein Total Protein Albumin Prealbumin LDL Cholesterol Direct HDL Cholesterol Arterial Blood Glucose Arterial Blood Ionized Calcium Urine WBC (Auto) 03/11/20 03/11/20 03/11/20 11:30 14:01 14:01 WBC 19.7 H RBC 3.04 L Hgb 8.7 L Hct 25.8 L MCV MCH RDW 15.6 H Plt Count Lymph % (Auto) [place] % (Auto) Lymph # (Auto) [place] # (Auto) Seg Neutrophils % Seg Neuts % (Manual) Lymphocytes % (Manual) Monocytes % (Manual) Basophils % (Manual) Seg Neutrophils # Seg Neutrophils # Man Lymphocytes # (Manual) Monocytes # (Manual) Eosinophils # (Manual) Basophils # (Manual) PT INR D-Dimer ABG pH POC ABG pCO2 POC ABG pO2 ABG pO2 ABG HCO3 ABG O2 Saturation ABG Base Excess ABG Hemoglobin ABG Oxyhemoglobin ABG Potassium ABG Glucose Oxyhemoglobin Carboxyhemoglobin Sodium 151 H Potassium Chloride Carbon Dioxide 37 H BUN Creatinine < 0.2 L Glucose 171 H POC Glucose 248 H Calcium Ferritin Total Bilirubin Alkaline Phosphatase Lactate Dehydrogenase Total Creatine Kinase CK-MB (CK-2) Rel Index Troponin T C-Reactive Protein Total Protein Albumin Prealbumin LDL Cholesterol Direct HDL Cholesterol Arterial Blood Glucose Arterial Blood Ionized Calcium Urine WBC (Auto) 03/11/20 03/11/20 03/12/20 17:09 23:52 04:39 WBC 19.9 H RBC 3.16 L Hgb 8.9 L Hct 27.5 L MCV MCH RDW 15.7 H Plt Count Lymph % (Auto) 6.8 L [place] % (Auto) Lymph # (Auto) [place] # (Auto) 1.2 H Seg Neutrophils % 86.0 H Seg Neuts % (Manual) Lymphocytes % (Manual) Monocytes % (Manual) Basophils % (Manual) Seg Neutrophils # 17.1 H Seg Neutrophils # Man Lymphocytes # (Manual) Monocytes # (Manual) Eosinophils # (Manual) Basophils # (Manual) PT INR D-Dimer ABG pH POC ABG pCO2 POC ABG pO2 ABG pO2 ABG HCO3 ABG O2 Saturation ABG Base Excess ABG Hemoglobin ABG Oxyhemoglobin ABG Potassium ABG Glucose Oxyhemoglobin Carboxyhemoglobin Sodium Potassium Chloride Carbon Dioxide BUN Creatinine Glucose POC Glucose 124 H 131 H Calcium Ferritin Total Bilirubin Alkaline Phosphatase Lactate Dehydrogenase Total Creatine Kinase CK-MB (CK-2) Rel Index Troponin T C-Reactive Protein Total Protein Albumin Prealbumin LDL Cholesterol Direct HDL Cholesterol Arterial Blood Glucose Arterial Blood Ionized Calcium Urine WBC (Auto) 03/12/20 03/12/20 03/12/20 04:39 05:28 11:34 WBC RBC Hgb Hct MCV MCH RDW Plt Count Lymph % (Auto) [place] % (Auto) Lymph # (Auto) [place] # (Auto) Seg Neutrophils % Seg Neuts % (Manual) Lymphocytes % (Manual) Monocytes % (Manual) Basophils % (Manual) Seg Neutrophils # Seg Neutrophils # Man Lymphocytes # (Manual) Monocytes # (Manual) Eosinophils # (Manual) Basophils # (Manual) PT INR D-Dimer ABG pH POC ABG pCO2 POC ABG pO2 ABG pO2 ABG HCO3 ABG O2 Saturation ABG Base Excess ABG Hemoglobin ABG Oxyhemoglobin ABG Potassium ABG Glucose Oxyhemoglobin Carboxyhemoglobin Sodium 147 H Potassium Chloride Carbon Dioxide 40 H BUN Creatinine < 0.2 L Glucose 175 H POC Glucose 167 H 144 H Calcium Ferritin Total Bilirubin Alkaline Phosphatase Lactate Dehydrogenase Total Creatine Kinase CK-MB (CK-2) Rel Index Troponin T C-Reactive Protein Total Protein Albumin Prealbumin LDL Cholesterol Direct HDL Cholesterol Arterial Blood Glucose Arterial Blood Ionized Calcium Urine WBC (Auto) 03/12/20 03/12/20 03/13/20 17:32 23:57 05:57 WBC RBC Hgb Hct MCV MCH RDW Plt Count Lymph % (Auto) [place] % (Auto) Lymph # (Auto) [place] # (Auto) Seg Neutrophils % Seg Neuts % (Manual) Lymphocytes % (Manual) Monocytes % (Manual) Basophils % (Manual) Seg Neutrophils # Seg Neutrophils # Man Lymphocytes # (Manual) Monocytes # (Manual) Eosinophils # (Manual) Basophils # (Manual) PT INR D-Dimer ABG pH POC ABG pCO2 POC ABG pO2 ABG pO2 ABG HCO3 ABG O2 Saturation ABG Base Excess ABG Hemoglobin ABG Oxyhemoglobin ABG Potassium ABG Glucose Oxyhemoglobin Carboxyhemoglobin Sodium Potassium Chloride Carbon Dioxide BUN Creatinine Glucose POC Glucose 141 H 137 H 161 H Calcium Ferritin Total Bilirubin Alkaline Phosphatase Lactate Dehydrogenase Total Creatine Kinase CK-MB (CK-2) Rel Index Troponin T C-Reactive Protein Total Protein Albumin Prealbumin LDL Cholesterol Direct HDL Cholesterol Arterial Blood Glucose Arterial Blood Ionized Calcium Urine WBC (Auto) 03/13/20 03/13/20 03/13/20 12:28 14:14 18:39 WBC RBC Hgb Hct MCV MCH RDW Plt Count Lymph % (Auto) [place] % (Auto) Lymph # (Auto) [place] # (Auto) Seg Neutrophils % Seg Neuts % (Manual) Lymphocytes % (Manual) Monocytes % (Manual) Basophils % (Manual) Seg Neutrophils # Seg Neutrophils # Man Lymphocytes # (Manual) Monocytes # (Manual) Eosinophils # (Manual) Basophils # (Manual) PT INR D-Dimer ABG pH POC ABG pCO2 POC ABG pO2 ABG pO2 ABG HCO3 ABG O2 Saturation ABG Base Excess ABG Hemoglobin ABG Oxyhemoglobin ABG Potassium ABG Glucose Oxyhemoglobin Carboxyhemoglobin Sodium Potassium Chloride Carbon Dioxide 39 H BUN Creatinine < 0.2 L Glucose 129 H POC Glucose 130 H 125 H Calcium Ferritin Total Bilirubin Alkaline Phosphatase Lactate Dehydrogenase Total Creatine Kinase CK-MB (CK-2) Rel Index Troponin T C-Reactive Protein Total Protein Albumin Prealbumin LDL Cholesterol Direct HDL Cholesterol Arterial Blood Glucose Arterial Blood Ionized Calcium Urine WBC (Auto) 03/13/20 03/14/20 03/14/20 23:33 05:24 08:07 WBC 16.8 H RBC 2.81 L Hgb 7.9 L Hct 23.9 L MCV MCH RDW 15.9 H Plt Count Lymph % (Auto) [place] % (Auto) Lymph # (Auto) [place] # (Auto) Seg Neutrophils % Seg Neuts % (Manual) 84.0 H Lymphocytes % (Manual) 10.0 L Monocytes % (Manual) Basophils % (Manual) Seg Neutrophils # Seg Neutrophils # Man 14.1 H Lymphocytes # (Manual) Monocytes # (Manual) Eosinophils # (Manual) Basophils # (Manual) PT INR D-Dimer ABG pH POC ABG pCO2 POC ABG pO2 ABG pO2 ABG HCO3 ABG O2 Saturation ABG Base Excess ABG Hemoglobin ABG Oxyhemoglobin ABG Potassium ABG Glucose Oxyhemoglobin Carboxyhemoglobin Sodium Potassium Chloride Carbon Dioxide BUN Creatinine Glucose POC Glucose 146 H 125 H Calcium Ferritin Total Bilirubin Alkaline Phosphatase Lactate Dehydrogenase Total Creatine Kinase CK-MB (CK-2) Rel Index Troponin T C-Reactive Protein Total Protein Albumin Prealbumin LDL Cholesterol Direct HDL Cholesterol Arterial Blood Glucose Arterial Blood Ionized Calcium Urine WBC (Auto) 03/14/20 03/14/20 03/14/20 08:07 12:21 18:26 WBC RBC Hgb Hct MCV MCH RDW Plt Count Lymph % (Auto) [place] % (Auto) Lymph # (Auto) [place] # (Auto) Seg Neutrophils % Seg Neuts % (Manual) Lymphocytes % (Manual) Monocytes % (Manual) Basophils % (Manual) Seg Neutrophils # Seg Neutrophils # Man Lymphocytes # (Manual) Monocytes # (Manual) Eosinophils # (Manual) Basophils # (Manual) PT INR D-Dimer ABG pH POC ABG pCO2 POC ABG pO2 ABG pO2 ABG HCO3 ABG O2 Saturation ABG Base Excess ABG Hemoglobin ABG Oxyhemoglobin ABG Potassium ABG Glucose Oxyhemoglobin Carboxyhemoglobin Sodium Potassium Chloride 97.0 L Carbon Dioxide 37 H BUN Creatinine < 0.2 L Glucose 129 H POC Glucose 109 H 142 H Calcium 8.3 L Ferritin Total Bilirubin Alkaline Phosphatase Lactate Dehydrogenase Total Creatine Kinase CK-MB (CK-2) Rel Index Troponin T C-Reactive Protein Total Protein Albumin Prealbumin LDL Cholesterol Direct HDL Cholesterol Arterial Blood Glucose Arterial Blood Ionized Calcium Urine WBC (Auto) 03/14/20 03/15/20 03/15/20 23:57 05:46 08:06 WBC 19.7 H RBC 3.29 L Hgb 9.1 L Hct 28.0 L MCV MCH RDW 15.9 H Plt Count Lymph % (Auto) [place] % (Auto) Lymph # (Auto) [place] # (Auto) Seg Neutrophils % Seg Neuts % (Manual) Lymphocytes % (Manual) Monocytes % (Manual) Basophils % (Manual) Seg Neutrophils # Seg Neutrophils # Man Lymphocytes # (Manual) Monocytes # (Manual) Eosinophils # (Manual) Basophils # (Manual) PT INR D-Dimer ABG pH POC ABG pCO2 POC ABG pO2 ABG pO2 ABG HCO3 ABG O2 Saturation ABG Base Excess ABG Hemoglobin ABG Oxyhemoglobin ABG Potassium ABG Glucose Oxyhemoglobin Carboxyhemoglobin Sodium Potassium Chloride Carbon Dioxide BUN Creatinine Glucose POC Glucose 157 H 118 H Calcium Ferritin Total Bilirubin Alkaline Phosphatase Lactate Dehydrogenase Total Creatine Kinase CK-MB (CK-2) Rel Index Troponin T C-Reactive Protein Total Protein Albumin Prealbumin LDL Cholesterol Direct HDL Cholesterol Arterial Blood Glucose Arterial Blood Ionized Calcium Urine WBC (Auto) 03/15/20 03/15/20 03/15/20 08:06 12:44 18:09 WBC RBC Hgb Hct MCV MCH RDW Plt Count Lymph % (Auto) [place] % (Auto) Lymph # (Auto) [place] # (Auto) Seg Neutrophils % Seg Neuts % (Manual) Lymphocytes % (Manual) Monocytes % (Manual) Basophils % (Manual) Seg Neutrophils # Seg Neutrophils # Man Lymphocytes # (Manual) Monocytes # (Manual) Eosinophils # (Manual) Basophils # (Manual) PT INR D-Dimer ABG pH POC ABG pCO2 POC ABG pO2 ABG pO2 ABG HCO3 ABG O2 Saturation ABG Base Excess ABG Hemoglobin ABG Oxyhemoglobin ABG Potassium ABG Glucose Oxyhemoglobin Carboxyhemoglobin Sodium 136 L Potassium Chloride 93.6 L Carbon Dioxide 37 H BUN Creatinine < 0.2 L Glucose 132 H POC Glucose 151 H 164 H Calcium Ferritin Total Bilirubin Alkaline Phosphatase Lactate Dehydrogenase Total Creatine Kinase CK-MB (CK-2) Rel Index Troponin T C-Reactive Protein Total Protein Albumin Prealbumin LDL Cholesterol Direct HDL Cholesterol Arterial Blood Glucose Arterial Blood Ionized Calcium Urine WBC (Auto) 03/15/20 03/16/20 03/16/20 23:26 05:39 11:58 WBC RBC Hgb Hct MCV MCH RDW Plt Count Lymph % (Auto) [place] % (Auto) Lymph # (Auto) [place] # (Auto) Seg Neutrophils % Seg Neuts % (Manual) Lymphocytes % (Manual) Monocytes % (Manual) Basophils % (Manual) Seg Neutrophils # Seg Neutrophils # Man Lymphocytes # (Manual) Monocytes # (Manual) Eosinophils # (Manual) Basophils # (Manual) PT INR D-Dimer ABG pH POC ABG pCO2 POC ABG pO2 ABG pO2 ABG HCO3 ABG O2 Saturation ABG Base Excess ABG Hemoglobin ABG Oxyhemoglobin ABG Potassium ABG Glucose Oxyhemoglobin Carboxyhemoglobin Sodium Potassium Chloride Carbon Dioxide BUN Creatinine Glucose POC Glucose 136 H 116 H 109 H Calcium Ferritin Total Bilirubin Alkaline Phosphatase Lactate Dehydrogenase Total Creatine Kinase CK-MB (CK-2) Rel Index Troponin T C-Reactive Protein Total Protein Albumin Prealbumin LDL Cholesterol Direct HDL Cholesterol Arterial Blood Glucose Arterial Blood Ionized Calcium Urine WBC (Auto) 03/16/20 03/17/20 03/17/20 23:56 04:40 04:40 WBC 18.0 H RBC 3.33 L Hgb 9.5 L Hct 28.8 L MCV MCH RDW 16.4 H Plt Count 499 H Lymph % (Auto) [place] % (Auto) Lymph # (Auto) [place] # (Auto) Seg Neutrophils % Seg Neuts % (Manual) 82.0 H Lymphocytes % (Manual) 8.0 L Monocytes % (Manual) Basophils % (Manual) Seg Neutrophils # Seg Neutrophils # Man 14.8 H Lymphocytes # (Manual) Monocytes # (Manual) 1.3 H Eosinophils # (Manual) Basophils # (Manual) 0.2 H PT INR D-Dimer ABG pH POC ABG pCO2 POC ABG pO2 ABG pO2 ABG HCO3 ABG O2 Saturation ABG Base Excess ABG Hemoglobin ABG Oxyhemoglobin ABG Potassium ABG Glucose Oxyhemoglobin Carboxyhemoglobin Sodium Potassium Chloride 97.7 L Carbon Dioxide 32 H BUN Creatinine < 0.2 L Glucose 114 H POC Glucose 131 H Calcium Ferritin Total Bilirubin Alkaline Phosphatase Lactate Dehydrogenase Total Creatine Kinase CK-MB (CK-2) Rel Index Troponin T C-Reactive Protein Total Protein Albumin Prealbumin LDL Cholesterol Direct HDL Cholesterol Arterial Blood Glucose Arterial Blood Ionized Calcium Urine WBC (Auto) 03/18/20 03/18/20 03/18/20 00:21 05:21 11:55 WBC RBC Hgb Hct MCV MCH RDW Plt Count Lymph % (Auto) [place] % (Auto) Lymph # (Auto) [place] # (Auto) Seg Neutrophils % Seg Neuts % (Manual) Lymphocytes % (Manual) Monocytes % (Manual) Basophils % (Manual) Seg Neutrophils # Seg Neutrophils # Man Lymphocytes # (Manual) Monocytes # (Manual) Eosinophils # (Manual) Basophils # (Manual) PT INR D-Dimer ABG pH POC ABG pCO2 POC ABG pO2 ABG pO2 ABG HCO3 ABG O2 Saturation ABG Base Excess ABG Hemoglobin ABG Oxyhemoglobin ABG Potassium ABG Glucose Oxyhemoglobin Carboxyhemoglobin Sodium Potassium Chloride Carbon Dioxide BUN Creatinine Glucose POC Glucose 124 H 138 H 119 H Calcium Ferritin Total Bilirubin Alkaline Phosphatase Lactate Dehydrogenase Total Creatine Kinase CK-MB (CK-2) Rel Index Troponin T C-Reactive Protein Total Protein Albumin Prealbumin LDL Cholesterol Direct HDL Cholesterol Arterial Blood Glucose Arterial Blood Ionized Calcium Urine WBC (Auto) 03/18/20 03/18/20 03/19/20 17:03 23:58 05:24 WBC RBC Hgb Hct MCV MCH RDW Plt Count Lymph % (Auto) [place] % (Auto) Lymph # (Auto) [place] # (Auto) Seg Neutrophils % Seg Neuts % (Manual) Lymphocytes % (Manual) Monocytes % (Manual) Basophils % (Manual) Seg Neutrophils # Seg Neutrophils # Man Lymphocytes # (Manual) Monocytes # (Manual) Eosinophils # (Manual) Basophils # (Manual) PT INR D-Dimer ABG pH POC ABG pCO2 POC ABG pO2 ABG pO2 ABG HCO3 ABG O2 Saturation ABG Base Excess ABG Hemoglobin ABG Oxyhemoglobin ABG Potassium ABG Glucose Oxyhemoglobin Carboxyhemoglobin Sodium Potassium Chloride Carbon Dioxide BUN Creatinine Glucose POC Glucose 128 H 128 H 115 H Calcium Ferritin Total Bilirubin Alkaline Phosphatase Lactate Dehydrogenase Total Creatine Kinase CK-MB (CK-2) Rel Index Troponin T C-Reactive Protein Total Protein Albumin Prealbumin LDL Cholesterol Direct HDL Cholesterol Arterial Blood Glucose Arterial Blood Ionized Calcium Urine WBC (Auto) 03/19/20 03/19/20 03/19/20 08:05 08:05 11:56 WBC 16.8 H RBC 3.36 L Hgb 9.4 L Hct 28.8 L MCV MCH RDW 17.4 H Plt Count 567 H Lymph % (Auto) 7.8 L [place] % (Auto) Lymph # (Auto) [place] # (Auto) 1.2 H Seg Neutrophils % 83.5 H Seg Neuts % (Manual) Lymphocytes % (Manual) Monocytes % (Manual) Basophils % (Manual) Seg Neutrophils # 14.1 H Seg Neutrophils # Man Lymphocytes # (Manual) Monocytes # (Manual) Eosinophils # (Manual) Basophils # (Manual) PT INR D-Dimer ABG pH POC ABG pCO2 POC ABG pO2 ABG pO2 ABG HCO3 ABG O2 Saturation ABG Base Excess ABG Hemoglobin ABG Oxyhemoglobin ABG Potassium ABG Glucose Oxyhemoglobin Carboxyhemoglobin Sodium Potassium Chloride Carbon Dioxide 36 H BUN Creatinine < 0.2 L Glucose 135 H POC Glucose 128 H Calcium Ferritin Total Bilirubin Alkaline Phosphatase Lactate Dehydrogenase Total Creatine Kinase CK-MB (CK-2) Rel Index Troponin T C-Reactive Protein Total Protein Albumin Prealbumin LDL Cholesterol Direct HDL Cholesterol Arterial Blood Glucose Arterial Blood Ionized Calcium Urine WBC (Auto) 03/19/20 03/20/20 03/20/20 23:59 05:12 16:52 WBC RBC Hgb Hct MCV MCH RDW Plt Count Lymph % (Auto) [place] % (Auto) Lymph # (Auto) [place] # (Auto) Seg Neutrophils % Seg Neuts % (Manual) Lymphocytes % (Manual) Monocytes % (Manual) Basophils % (Manual) Seg Neutrophils # Seg Neutrophils # Man Lymphocytes # (Manual) Monocytes # (Manual) Eosinophils # (Manual) Basophils # (Manual) PT INR D-Dimer ABG pH POC ABG pCO2 POC ABG pO2 ABG pO2 ABG HCO3 ABG O2 Saturation ABG Base Excess ABG Hemoglobin ABG Oxyhemoglobin ABG Potassium ABG Glucose Oxyhemoglobin Carboxyhemoglobin Sodium Potassium Chloride Carbon Dioxide BUN Creatinine Glucose POC Glucose 120 H 131 H 124 H Calcium Ferritin Total Bilirubin Alkaline Phosphatase Lactate Dehydrogenase Total Creatine Kinase CK-MB (CK-2) Rel Index Troponin T C-Reactive Protein Total Protein Albumin Prealbumin LDL Cholesterol Direct HDL Cholesterol Arterial Blood Glucose Arterial Blood Ionized Calcium Urine WBC (Auto) 03/20/20 03/21/20 03/21/20 23:35 04:50 07:35 WBC 15.2 H RBC 3.39 L Hgb 9.4 L Hct 29.4 L MCV MCH RDW 17.6 H Plt Count 518 H Lymph % (Auto) [place] % (Auto) Lymph # (Auto) [place] # (Auto) Seg Neutrophils % Seg Neuts % (Manual) 83.0 H Lymphocytes % (Manual) 10.0 L Monocytes % (Manual) Basophils % (Manual) 2.0 H Seg Neutrophils # Seg Neutrophils # Man 12.6 H Lymphocytes # (Manual) Monocytes # (Manual) Eosinophils # (Manual) Basophils # (Manual) 0.3 H PT INR D-Dimer ABG pH POC ABG pCO2 POC ABG pO2 ABG pO2 ABG HCO3 ABG O2 Saturation ABG Base Excess ABG Hemoglobin ABG Oxyhemoglobin ABG Potassium ABG Glucose Oxyhemoglobin Carboxyhemoglobin Sodium Potassium Chloride Carbon Dioxide BUN Creatinine Glucose POC Glucose 125 H 127 H Calcium Ferritin Total Bilirubin Alkaline Phosphatase Lactate Dehydrogenase Total Creatine Kinase CK-MB (CK-2) Rel Index Troponin T C-Reactive Protein Total Protein Albumin Prealbumin LDL Cholesterol Direct HDL Cholesterol Arterial Blood Glucose Arterial Blood Ionized Calcium Urine WBC (Auto) 03/21/20 03/21/20 03/21/20 07:35 11:45 17:22 WBC RBC Hgb Hct MCV MCH RDW Plt Count Lymph % (Auto) [place] % (Auto) Lymph # (Auto) [place] # (Auto) Seg Neutrophils % Seg Neuts % (Manual) Lymphocytes % (Manual) Monocytes % (Manual) Basophils % (Manual) Seg Neutrophils # Seg Neutrophils # Man Lymphocytes # (Manual) Monocytes # (Manual) Eosinophils # (Manual) Basophils # (Manual) PT INR D-Dimer ABG pH POC ABG pCO2 POC ABG pO2 ABG pO2 ABG HCO3 ABG O2 Saturation ABG Base Excess ABG Hemoglobin ABG Oxyhemoglobin ABG Potassium ABG Glucose Oxyhemoglobin Carboxyhemoglobin Sodium 136 L Potassium Chloride 97.7 L Carbon Dioxide 32 H BUN Creatinine < 0.2 L Glucose 103 H POC Glucose 126 H 120 H Calcium Ferritin Total Bilirubin Alkaline Phosphatase Lactate Dehydrogenase Total Creatine Kinase CK-MB (CK-2) Rel Index Troponin T C-Reactive Protein Total Protein Albumin Prealbumin LDL Cholesterol Direct HDL Cholesterol Arterial Blood Glucose Arterial Blood Ionized Calcium Urine WBC (Auto) 03/22/20 03/22/20 03/22/20 05:09 06:34 06:34 WBC 17.5 H RBC 3.52 L Hgb 10.0 L Hct 30.7 L MCV MCH RDW 17.5 H Plt Count 499 H Lymph % (Auto) [place] % (Auto) Lymph # (Auto) [place] # (Auto) Seg Neutrophils % Seg Neuts % (Manual) 80.0 H Lymphocytes % (Manual) 10.0 L Monocytes % (Manual) Basophils % (Manual) Seg Neutrophils # Seg Neutrophils # Man 14.0 H Lymphocytes # (Manual) Monocytes # (Manual) Eosinophils # (Manual) Basophils # (Manual) PT INR D-Dimer ABG pH POC ABG pCO2 POC ABG pO2 ABG pO2 ABG HCO3 ABG O2 Saturation ABG Base Excess ABG Hemoglobin ABG Oxyhemoglobin ABG Potassium ABG Glucose Oxyhemoglobin Carboxyhemoglobin Sodium Potassium Chloride 96.6 L Carbon Dioxide 38 H BUN Creatinine < 0.2 L Glucose 139 H POC Glucose 125 H Calcium Ferritin Total Bilirubin Alkaline Phosphatase Lactate Dehydrogenase Total Creatine Kinase CK-MB (CK-2) Rel Index Troponin T C-Reactive Protein Total Protein Albumin Prealbumin LDL Cholesterol Direct HDL Cholesterol Arterial Blood Glucose Arterial Blood Ionized Calcium Urine WBC (Auto) 03/22/20 03/22/20 03/22/20 11:45 18:00 23:32 WBC RBC Hgb Hct MCV MCH RDW Plt Count Lymph % (Auto) [place] % (Auto) Lymph # (Auto) [place] # (Auto) Seg Neutrophils % Seg Neuts % (Manual) Lymphocytes % (Manual) Monocytes % (Manual) Basophils % (Manual) Seg Neutrophils # Seg Neutrophils # Man Lymphocytes # (Manual) Monocytes # (Manual) Eosinophils # (Manual) Basophils # (Manual) PT INR D-Dimer ABG pH POC ABG pCO2 POC ABG pO2 ABG pO2 ABG HCO3 ABG O2 Saturation ABG Base Excess ABG Hemoglobin ABG Oxyhemoglobin ABG Potassium ABG Glucose Oxyhemoglobin Carboxyhemoglobin Sodium Potassium Chloride Carbon Dioxide BUN Creatinine Glucose POC Glucose 135 H 133 H Calcium Ferritin Total Bilirubin Alkaline Phosphatase Lactate Dehydrogenase Total Creatine Kinase CK-MB (CK-2) Rel Index Troponin T 0.113 H* C-Reactive Protein Total Protein Albumin Prealbumin LDL Cholesterol Direct HDL Cholesterol Arterial Blood Glucose Arterial Blood Ionized Calcium Urine WBC (Auto) 03/23/20 03/23/20 03/23/20 01:47 06:21 07:57 WBC RBC Hgb Hct MCV MCH RDW Plt Count Lymph % (Auto) [place] % (Auto) Lymph # (Auto) [place] # (Auto) Seg Neutrophils % Seg Neuts % (Manual) Lymphocytes % (Manual) Monocytes % (Manual) Basophils % (Manual) Seg Neutrophils # Seg Neutrophils # Man Lymphocytes # (Manual) Monocytes # (Manual) Eosinophils # (Manual) Basophils # (Manual) PT INR D-Dimer ABG pH POC ABG pCO2 POC ABG pO2 ABG pO2 ABG HCO3 ABG O2 Saturation ABG Base Excess ABG Hemoglobin ABG Oxyhemoglobin ABG Potassium ABG Glucose Oxyhemoglobin Carboxyhemoglobin Sodium Potassium Chloride Carbon Dioxide BUN Creatinine Glucose POC Glucose 130 H Calcium Ferritin Total Bilirubin Alkaline Phosphatase Lactate Dehydrogenase Total Creatine Kinase CK-MB (CK-2) Rel Index Troponin T 0.143 H* D 0.105 H* D C-Reactive Protein Total Protein Albumin Prealbumin LDL Cholesterol Direct HDL Cholesterol Arterial Blood Glucose Arterial Blood Ionized Calcium Urine WBC (Auto) 03/23/20 03/24/20 03/24/20 12:02 05:33 07:15 WBC 18.0 H RBC Hgb 11.0 L Hct 34.0 L MCV MCH RDW 17.4 H Plt Count 520 H Lymph % (Auto) [place] % (Auto) Lymph # (Auto) [place] # (Auto) Seg Neutrophils % Seg Neuts % (Manual) 88.0 H Lymphocytes % (Manual) 7.0 L Monocytes % (Manual) Basophils % (Manual) Seg Neutrophils # Seg Neutrophils # Man 15.8 H Lymphocytes # (Manual) Monocytes # (Manual) Eosinophils # (Manual) Basophils # (Manual) PT INR D-Dimer ABG pH POC ABG pCO2 POC ABG pO2 ABG pO2 ABG HCO3 ABG O2 Saturation ABG Base Excess ABG Hemoglobin ABG Oxyhemoglobin ABG Potassium ABG Glucose Oxyhemoglobin Carboxyhemoglobin Sodium Potassium Chloride Carbon Dioxide BUN Creatinine Glucose POC Glucose 137 H 112 H Calcium Ferritin Total Bilirubin Alkaline Phosphatase Lactate Dehydrogenase Total Creatine Kinase CK-MB (CK-2) Rel Index Troponin T C-Reactive Protein Total Protein Albumin Prealbumin LDL Cholesterol Direct HDL Cholesterol Arterial Blood Glucose Arterial Blood Ionized Calcium Urine WBC (Auto) 03/24/20 03/24/20 03/24/20 07:15 11:22 23:30 WBC RBC Hgb Hct MCV MCH RDW Plt Count Lymph % (Auto) [place] % (Auto) Lymph # (Auto) [place] # (Auto) Seg Neutrophils % Seg Neuts % (Manual) Lymphocytes % (Manual) Monocytes % (Manual) Basophils % (Manual) Seg Neutrophils # Seg Neutrophils # Man Lymphocytes # (Manual) Monocytes # (Manual) Eosinophils # (Manual) Basophils # (Manual) PT INR D-Dimer ABG pH POC ABG pCO2 POC ABG pO2 ABG pO2 ABG HCO3 ABG O2 Saturation ABG Base Excess ABG Hemoglobin ABG Oxyhemoglobin ABG Potassium ABG Glucose Oxyhemoglobin Carboxyhemoglobin Sodium Potassium Chloride 96.6 L Carbon Dioxide 38 H BUN Creatinine < 0.2 L Glucose 141 H POC Glucose 130 H 120 H Calcium Ferritin Total Bilirubin Alkaline Phosphatase Lactate Dehydrogenase Total Creatine Kinase CK-MB (CK-2) Rel Index Troponin T C-Reactive Protein Total Protein Albumin Prealbumin LDL Cholesterol Direct HDL Cholesterol Arterial Blood Glucose Arterial Blood Ionized Calcium Urine WBC (Auto) 03/25/20 03/25/20 03/25/20 05:48 17:53 23:18 WBC RBC Hgb Hct MCV MCH RDW Plt Count Lymph % (Auto) [place] % (Auto) Lymph # (Auto) [place] # (Auto) Seg Neutrophils % Seg Neuts % (Manual) Lymphocytes % (Manual) Monocytes % (Manual) Basophils % (Manual) Seg Neutrophils # Seg Neutrophils # Man Lymphocytes # (Manual) Monocytes # (Manual) Eosinophils # (Manual) Basophils # (Manual) PT INR D-Dimer ABG pH POC ABG pCO2 POC ABG pO2 ABG pO2 ABG HCO3 ABG O2 Saturation ABG Base Excess ABG Hemoglobin ABG Oxyhemoglobin ABG Potassium ABG Glucose Oxyhemoglobin Carboxyhemoglobin Sodium Potassium Chloride Carbon Dioxide BUN Creatinine Glucose POC Glucose 124 H 109 H 131 H Calcium Ferritin Total Bilirubin Alkaline Phosphatase Lactate Dehydrogenase Total Creatine Kinase CK-MB (CK-2) Rel Index Troponin T C-Reactive Protein Total Protein Albumin Prealbumin LDL Cholesterol Direct HDL Cholesterol Arterial Blood Glucose Arterial Blood Ionized Calcium Urine WBC (Auto) 03/26/20 03/26/20 03/26/20 05:21 08:49 08:49 WBC 19.7 H RBC Hgb 10.7 L Hct 33.5 L MCV MCH 27 L RDW 17.1 H Plt Count 480 H Lymph % (Auto) 5.7 L [place] % (Auto) Lymph # (Auto) 1.1 L [place] # (Auto) 1.2 H Seg Neutrophils % 87.7 H Seg Neuts % (Manual) Lymphocytes % (Manual) Monocytes % (Manual) Basophils % (Manual) Seg Neutrophils # 17.2 H Seg Neutrophils # Man Lymphocytes # (Manual) Monocytes # (Manual) Eosinophils # (Manual) Basophils # (Manual) PT INR D-Dimer ABG pH POC ABG pCO2 POC ABG pO2 ABG pO2 ABG HCO3 ABG O2 Saturation ABG Base Excess ABG Hemoglobin ABG Oxyhemoglobin ABG Potassium ABG Glucose Oxyhemoglobin Carboxyhemoglobin Sodium Potassium Chloride 97.2 L Carbon Dioxide 36 H BUN Creatinine < 0.2 L Glucose 127 H POC Glucose 116 H Calcium Ferritin Total Bilirubin Alkaline Phosphatase Lactate Dehydrogenase Total Creatine Kinase CK-MB (CK-2) Rel Index Troponin T C-Reactive Protein Total Protein Albumin Prealbumin LDL Cholesterol Direct HDL Cholesterol Arterial Blood Glucose Arterial Blood Ionized Calcium Urine WBC (Auto) 03/26/20 03/26/20 03/26/20 11:38 18:44 23:06 WBC RBC Hgb Hct MCV MCH RDW Plt Count Lymph % (Auto) [place] % (Auto) Lymph # (Auto) [place] # (Auto) Seg Neutrophils % Seg Neuts % (Manual) Lymphocytes % (Manual) Monocytes % (Manual) Basophils % (Manual) Seg Neutrophils # Seg Neutrophils # Man Lymphocytes # (Manual) Monocytes # (Manual) Eosinophils # (Manual) Basophils # (Manual) PT INR D-Dimer ABG pH POC ABG pCO2 POC ABG pO2 ABG pO2 ABG HCO3 ABG O2 Saturation ABG Base Excess ABG Hemoglobin ABG Oxyhemoglobin ABG Potassium ABG Glucose Oxyhemoglobin Carboxyhemoglobin Sodium Potassium Chloride Carbon Dioxide BUN Creatinine Glucose POC Glucose 120 H 111 H 134 H Calcium Ferritin Total Bilirubin Alkaline Phosphatase Lactate Dehydrogenase Total Creatine Kinase CK-MB (CK-2) Rel Index Troponin T C-Reactive Protein Total Protein Albumin Prealbumin LDL Cholesterol Direct HDL Cholesterol Arterial Blood Glucose Arterial Blood Ionized Calcium Urine WBC (Auto) 03/27/20 03/27/20 03/27/20 05:41 05:59 05:59 WBC 18.6 H RBC Hgb 10.1 L Hct 31.4 L MCV MCH RDW 17.2 H Plt Count Lymph % (Auto) 8.0 L [place] % (Auto) Lymph # (Auto) [place] # (Auto) 1.2 H Seg Neutrophils % 84.7 H Seg Neuts % (Manual) Lymphocytes % (Manual) Monocytes % (Manual) Basophils % (Manual) Seg Neutrophils # 15.8 H Seg Neutrophils # Man Lymphocytes # (Manual) Monocytes # (Manual) Eosinophils # (Manual) Basophils # (Manual) PT INR D-Dimer ABG pH POC ABG pCO2 POC ABG pO2 ABG pO2 ABG HCO3 ABG O2 Saturation ABG Base Excess ABG Hemoglobin ABG Oxyhemoglobin ABG Potassium ABG Glucose Oxyhemoglobin Carboxyhemoglobin Sodium Potassium Chloride Carbon Dioxide 34 H BUN Creatinine < 0.2 L Glucose 127 H POC Glucose 129 H Calcium Ferritin Total Bilirubin Alkaline Phosphatase Lactate Dehydrogenase Total Creatine Kinase CK-MB (CK-2) Rel Index Troponin T C-Reactive Protein Total Protein Albumin Prealbumin LDL Cholesterol Direct HDL Cholesterol Arterial Blood Glucose Arterial Blood Ionized Calcium Urine WBC (Auto) 03/27/20 03/27/20 03/28/20 17:28 23:22 05:23 WBC RBC Hgb Hct MCV MCH RDW Plt Count Lymph % (Auto) [place] % (Auto) Lymph # (Auto) [place] # (Auto) Seg Neutrophils % Seg Neuts % (Manual) Lymphocytes % (Manual) Monocytes % (Manual) Basophils % (Manual) Seg Neutrophils # Seg Neutrophils # Man Lymphocytes # (Manual) Monocytes # (Manual) Eosinophils # (Manual) Basophils # (Manual) PT INR D-Dimer ABG pH POC ABG pCO2 POC ABG pO2 ABG pO2 ABG HCO3 ABG O2 Saturation ABG Base Excess ABG Hemoglobin ABG Oxyhemoglobin ABG Potassium ABG Glucose Oxyhemoglobin Carboxyhemoglobin Sodium Potassium Chloride Carbon Dioxide BUN Creatinine Glucose POC Glucose 108 H 119 H 129 H Calcium Ferritin Total Bilirubin Alkaline Phosphatase Lactate Dehydrogenase Total Creatine Kinase CK-MB (CK-2) Rel Index Troponin T C-Reactive Protein Total Protein Albumin Prealbumin LDL Cholesterol Direct HDL Cholesterol Arterial Blood Glucose Arterial Blood Ionized Calcium Urine WBC (Auto) 03/28/20 03/28/20 03/28/20 10:28 10:28 11:36 WBC 23.6 H RBC 3.62 L Hgb 10.0 L Hct 30.8 L MCV MCH RDW 16.4 H Plt Count Lymph % (Auto) [place] % (Auto) Lymph # (Auto) [place] # (Auto) Seg Neutrophils % Seg Neuts % (Manual) 89.0 H Lymphocytes % (Manual) 5.0 L Monocytes % (Manual) Basophils % (Manual) Seg Neutrophils # Seg Neutrophils # Man 21.0 H Lymphocytes # (Manual) Monocytes # (Manual) 1.2 H Eosinophils # (Manual) Basophils # (Manual) 0.2 H PT INR D-Dimer ABG pH POC ABG pCO2 POC ABG pO2 ABG pO2 ABG HCO3 ABG O2 Saturation ABG Base Excess ABG Hemoglobin ABG Oxyhemoglobin ABG Potassium ABG Glucose Oxyhemoglobin Carboxyhemoglobin Sodium 134 L Potassium Chloride 94.2 L Carbon Dioxide 35 H BUN Creatinine < 0.2 L Glucose 134 H POC Glucose Calcium Ferritin Total Bilirubin Alkaline Phosphatase Lactate Dehydrogenase Total Creatine Kinase CK-MB (CK-2) Rel Index Troponin T C-Reactive Protein Total Protein Albumin Prealbumin LDL Cholesterol Direct HDL Cholesterol Arterial Blood Glucose Arterial Blood Ionized Calcium Urine WBC (Auto) 39.0 H 03/28/20 03/28/20 03/28/20 11:51 17:08 17:17 WBC RBC Hgb Hct MCV MCH RDW Plt Count Lymph % (Auto) [place] % (Auto) Lymph # (Auto) [place] # (Auto) Seg Neutrophils % Seg Neuts % (Manual) Lymphocytes % (Manual) Monocytes % (Manual) Basophils % (Manual) Seg Neutrophils # Seg Neutrophils # Man Lymphocytes # (Manual) Monocytes # (Manual) Eosinophils # (Manual) Basophils # (Manual) PT INR D-Dimer ABG pH POC ABG pCO2 POC ABG pO2 ABG pO2 ABG HCO3 ABG O2 Saturation ABG Base Excess ABG Hemoglobin ABG Oxyhemoglobin ABG Potassium ABG Glucose Oxyhemoglobin Carboxyhemoglobin Sodium Potassium Chloride Carbon Dioxide BUN Creatinine Glucose POC Glucose 123 H 112 H Calcium Ferritin Total Bilirubin Alkaline Phosphatase Lactate Dehydrogenase Total Creatine Kinase 47 L CK-MB (CK-2) Rel Index 4.6 H Troponin T 0.090 H C-Reactive Protein Total Protein Albumin Prealbumin LDL Cholesterol Direct HDL Cholesterol Arterial Blood Glucose Arterial Blood Ionized Calcium Urine WBC (Auto) 03/28/20 03/29/20 03/29/20 23:22 05:22 10:58 WBC RBC Hgb Hct MCV MCH RDW Plt Count Lymph % (Auto) [place] % (Auto) Lymph # (Auto) [place] # (Auto) Seg Neutrophils % Seg Neuts % (Manual) Lymphocytes % (Manual) Monocytes % (Manual) Basophils % (Manual) Seg Neutrophils # Seg Neutrophils # Man Lymphocytes # (Manual) Monocytes # (Manual) Eosinophils # (Manual) Basophils # (Manual) PT INR D-Dimer ABG pH POC ABG pCO2 POC ABG pO2 ABG pO2 ABG HCO3 ABG O2 Saturation ABG Base Excess ABG Hemoglobin ABG Oxyhemoglobin ABG Potassium ABG Glucose Oxyhemoglobin Carboxyhemoglobin Sodium Potassium Chloride Carbon Dioxide BUN Creatinine Glucose POC Glucose 122 H 116 H 133 H Calcium Ferritin Total Bilirubin Alkaline Phosphatase Lactate Dehydrogenase Total Creatine Kinase CK-MB (CK-2) Rel Index Troponin T C-Reactive Protein Total Protein Albumin Prealbumin LDL Cholesterol Direct HDL Cholesterol Arterial Blood Glucose Arterial Blood Ionized Calcium Urine WBC (Auto) 03/29/20 03/29/20 03/30/20 17:18 23:14 04:57 WBC RBC Hgb Hct MCV MCH RDW Plt Count Lymph % (Auto) [place] % (Auto) Lymph # (Auto) [place] # (Auto) Seg Neutrophils % Seg Neuts % (Manual) Lymphocytes % (Manual) Monocytes % (Manual) Basophils % (Manual) Seg Neutrophils # Seg Neutrophils # Man Lymphocytes # (Manual) Monocytes # (Manual) Eosinophils # (Manual) Basophils # (Manual) PT INR D-Dimer ABG pH POC ABG pCO2 POC ABG pO2 ABG pO2 ABG HCO3 ABG O2 Saturation ABG Base Excess ABG Hemoglobin ABG Oxyhemoglobin ABG Potassium ABG Glucose Oxyhemoglobin Carboxyhemoglobin Sodium Potassium Chloride Carbon Dioxide BUN Creatinine Glucose POC Glucose 111 H 114 H 130 H Calcium Ferritin Total Bilirubin Alkaline Phosphatase Lactate Dehydrogenase Total Creatine Kinase CK-MB (CK-2) Rel Index Troponin T C-Reactive Protein Total Protein Albumin Prealbumin LDL Cholesterol Direct HDL Cholesterol Arterial Blood Glucose Arterial Blood Ionized Calcium Urine WBC (Auto) 03/30/20 03/30/20 03/30/20 11:38 14:47 14:47 WBC 19.9 H RBC Hgb 10.9 L Hct 34.4 L MCV MCH 27 L RDW 16.5 H Plt Count 441 H Lymph % (Auto) 6.4 L [place] % (Auto) Lymph # (Auto) [place] # (Auto) 1.4 H Seg Neutrophils % 86.1 H Seg Neuts % (Manual) Lymphocytes % (Manual) Monocytes % (Manual) Basophils % (Manual) Seg Neutrophils # 17.1 H Seg Neutrophils # Man Lymphocytes # (Manual) Monocytes # (Manual) Eosinophils # (Manual) Basophils # (Manual) PT INR D-Dimer ABG pH POC ABG pCO2 POC ABG pO2 ABG pO2 ABG HCO3 ABG O2 Saturation ABG Base Excess ABG Hemoglobin ABG Oxyhemoglobin ABG Potassium ABG Glucose Oxyhemoglobin Carboxyhemoglobin Sodium 133 L Potassium Chloride 94.6 L Carbon Dioxide 33 H BUN Creatinine < 0.2 L Glucose 194 H POC Glucose 139 H Calcium Ferritin Total Bilirubin Alkaline Phosphatase Lactate Dehydrogenase Total Creatine Kinase CK-MB (CK-2) Rel Index Troponin T C-Reactive Protein Total Protein Albumin 2.8 L Prealbumin LDL Cholesterol Direct HDL Cholesterol Arterial Blood Glucose Arterial Blood Ionized Calcium Urine WBC (Auto) 03/30/20 03/31/20 03/31/20 17:07 05:02 15:21 WBC RBC Hgb Hct MCV MCH RDW Plt Count Lymph % (Auto) [place] % (Auto) Lymph # (Auto) [place] # (Auto) Seg Neutrophils % Seg Neuts % (Manual) Lymphocytes % (Manual) Monocytes % (Manual) Basophils % (Manual) Seg Neutrophils # Seg Neutrophils # Man Lymphocytes # (Manual) Monocytes # (Manual) Eosinophils # (Manual) Basophils # (Manual) PT INR D-Dimer ABG pH POC ABG pCO2 POC ABG pO2 ABG pO2 ABG HCO3 ABG O2 Saturation ABG Base Excess ABG Hemoglobin ABG Oxyhemoglobin ABG Potassium ABG Glucose Oxyhemoglobin Carboxyhemoglobin Sodium Potassium Chloride Carbon Dioxide BUN Creatinine Glucose POC Glucose 163 H 108 H 110 H Calcium Ferritin Total Bilirubin Alkaline Phosphatase Lactate Dehydrogenase Total Creatine Kinase CK-MB (CK-2) Rel Index Troponin T C-Reactive Protein Total Protein Albumin Prealbumin LDL Cholesterol Direct HDL Cholesterol Arterial Blood Glucose Arterial Blood Ionized Calcium Urine WBC (Auto) 03/31/20 03/31/20 04/01/20 17:58 23:19 05:09 WBC RBC Hgb Hct MCV MCH RDW Plt Count Lymph % (Auto) [place] % (Auto) Lymph # (Auto) [place] # (Auto) Seg Neutrophils % Seg Neuts % (Manual) Lymphocytes % (Manual) Monocytes % (Manual) Basophils % (Manual) Seg Neutrophils # Seg Neutrophils # Man Lymphocytes # (Manual) Monocytes # (Manual) Eosinophils # (Manual) Basophils # (Manual) PT INR D-Dimer ABG pH POC ABG pCO2 POC ABG pO2 ABG pO2 ABG HCO3 ABG O2 Saturation ABG Base Excess ABG Hemoglobin ABG Oxyhemoglobin ABG Potassium ABG Glucose Oxyhemoglobin Carboxyhemoglobin Sodium Potassium Chloride Carbon Dioxide BUN Creatinine Glucose POC Glucose 110 H 131 H 124 H Calcium Ferritin Total Bilirubin Alkaline Phosphatase Lactate Dehydrogenase Total Creatine Kinase CK-MB (CK-2) Rel Index Troponin T C-Reactive Protein Total Protein Albumin Prealbumin LDL Cholesterol Direct HDL Cholesterol Arterial Blood Glucose Arterial Blood Ionized Calcium Urine WBC (Auto) 04/01/20 04/01/20 04/01/20 11:50 17:01 23:21 WBC RBC Hgb Hct MCV MCH RDW Plt Count Lymph % (Auto) [place] % (Auto) Lymph # (Auto) [place] # (Auto) Seg Neutrophils % Seg Neuts % (Manual) Lymphocytes % (Manual) Monocytes % (Manual) Basophils % (Manual) Seg Neutrophils # Seg Neutrophils # Man Lymphocytes # (Manual) Monocytes # (Manual) Eosinophils # (Manual) Basophils # (Manual) PT INR D-Dimer ABG pH POC ABG pCO2 POC ABG pO2 ABG pO2 ABG HCO3 ABG O2 Saturation ABG Base Excess ABG Hemoglobin ABG Oxyhemoglobin ABG Potassium ABG Glucose Oxyhemoglobin Carboxyhemoglobin Sodium Potassium Chloride Carbon Dioxide BUN Creatinine Glucose POC Glucose 136 H 115 H 124 H Calcium Ferritin Total Bilirubin Alkaline Phosphatase Lactate Dehydrogenase Total Creatine Kinase CK-MB (CK-2) Rel Index Troponin T C-Reactive Protein Total Protein Albumin Prealbumin LDL Cholesterol Direct HDL Cholesterol Arterial Blood Glucose Arterial Blood Ionized Calcium Urine WBC (Auto) 04/02/20 04/02/20 04/02/20 05:27 11:58 17:58 WBC RBC Hgb Hct MCV MCH RDW Plt Count Lymph % (Auto) [place] % (Auto) Lymph # (Auto) [place] # (Auto) Seg Neutrophils % Seg Neuts % (Manual) Lymphocytes % (Manual) Monocytes % (Manual) Basophils % (Manual) Seg Neutrophils # Seg Neutrophils # Man Lymphocytes # (Manual) Monocytes # (Manual) Eosinophils # (Manual) Basophils # (Manual) PT INR D-Dimer ABG pH POC ABG pCO2 POC ABG pO2 ABG pO2 ABG HCO3 ABG O2 Saturation ABG Base Excess ABG Hemoglobin ABG Oxyhemoglobin ABG Potassium ABG Glucose Oxyhemoglobin Carboxyhemoglobin Sodium Potassium Chloride Carbon Dioxide BUN Creatinine Glucose POC Glucose 117 H 133 H 122 H Calcium Ferritin Total Bilirubin Alkaline Phosphatase Lactate Dehydrogenase Total Creatine Kinase CK-MB (CK-2) Rel Index Troponin T C-Reactive Protein Total Protein Albumin Prealbumin LDL Cholesterol Direct HDL Cholesterol Arterial Blood Glucose Arterial Blood Ionized Calcium Urine WBC (Auto) 04/02/20 04/03/20 04/03/20 23:12 05:11 11:11 WBC RBC Hgb Hct MCV MCH RDW Plt Count Lymph % (Auto) [place] % (Auto) Lymph # (Auto) [place] # (Auto) Seg Neutrophils % Seg Neuts % (Manual) Lymphocytes % (Manual) Monocytes % (Manual) Basophils % (Manual) Seg Neutrophils # Seg Neutrophils # Man Lymphocytes # (Manual) Monocytes # (Manual) Eosinophils # (Manual) Basophils # (Manual) PT INR D-Dimer ABG pH POC ABG pCO2 POC ABG pO2 ABG pO2 ABG HCO3 ABG O2 Saturation ABG Base Excess ABG Hemoglobin ABG Oxyhemoglobin ABG Potassium ABG Glucose Oxyhemoglobin Carboxyhemoglobin Sodium Potassium Chloride Carbon Dioxide BUN Creatinine Glucose POC Glucose 130 H 139 H 136 H Calcium Ferritin Total Bilirubin Alkaline Phosphatase Lactate Dehydrogenase Total Creatine Kinase CK-MB (CK-2) Rel Index Troponin T C-Reactive Protein Total Protein Albumin Prealbumin LDL Cholesterol Direct HDL Cholesterol Arterial Blood Glucose Arterial Blood Ionized Calcium Urine WBC (Auto) 04/03/20 04/03/20 04/04/20 16:51 23:25 05:29 WBC RBC Hgb Hct MCV MCH RDW Plt Count Lymph % (Auto) [place] % (Auto) Lymph # (Auto) [place] # (Auto) Seg Neutrophils % Seg Neuts % (Manual) Lymphocytes % (Manual) Monocytes % (Manual) Basophils % (Manual) Seg Neutrophils # Seg Neutrophils # Man Lymphocytes # (Manual) Monocytes # (Manual) Eosinophils # (Manual) Basophils # (Manual) PT INR D-Dimer ABG pH POC ABG pCO2 POC ABG pO2 ABG pO2 ABG HCO3 ABG O2 Saturation ABG Base Excess ABG Hemoglobin ABG Oxyhemoglobin ABG Potassium ABG Glucose Oxyhemoglobin Carboxyhemoglobin Sodium Potassium Chloride Carbon Dioxide BUN Creatinine Glucose POC Glucose 118 H 111 H 126 H Calcium Ferritin Total Bilirubin Alkaline Phosphatase Lactate Dehydrogenase Total Creatine Kinase CK-MB (CK-2) Rel Index Troponin T C-Reactive Protein Total Protein Albumin Prealbumin LDL Cholesterol Direct HDL Cholesterol Arterial Blood Glucose Arterial Blood Ionized Calcium Urine WBC (Auto) 04/04/20 04/04/20 04/04/20 11:47 17:41 23:05 WBC RBC Hgb Hct MCV MCH RDW Plt Count Lymph % (Auto) [place] % (Auto) Lymph # (Auto) [place] # (Auto) Seg Neutrophils % Seg Neuts % (Manual) Lymphocytes % (Manual) Monocytes % (Manual) Basophils % (Manual) Seg Neutrophils # Seg Neutrophils # Man Lymphocytes # (Manual) Monocytes # (Manual) Eosinophils # (Manual) Basophils # (Manual) PT INR D-Dimer ABG pH POC ABG pCO2 POC ABG pO2 ABG pO2 ABG HCO3 ABG O2 Saturation ABG Base Excess ABG Hemoglobin ABG Oxyhemoglobin ABG Potassium ABG Glucose Oxyhemoglobin Carboxyhemoglobin Sodium Potassium Chloride Carbon Dioxide BUN Creatinine Glucose POC Glucose 123 H 120 H 119 H Calcium Ferritin Total Bilirubin Alkaline Phosphatase Lactate Dehydrogenase Total Creatine Kinase CK-MB (CK-2) Rel Index Troponin T C-Reactive Protein Total Protein Albumin Prealbumin LDL Cholesterol Direct HDL Cholesterol Arterial Blood Glucose Arterial Blood Ionized Calcium Urine WBC (Auto) 04/05/20 04/05/20 04/05/20 05:14 12:16 18:48 WBC RBC Hgb Hct MCV MCH RDW Plt Count Lymph % (Auto) [place] % (Auto) Lymph # (Auto) [place] # (Auto) Seg Neutrophils % Seg Neuts % (Manual) Lymphocytes % (Manual) Monocytes % (Manual) Basophils % (Manual) Seg Neutrophils # Seg Neutrophils # Man Lymphocytes # (Manual) Monocytes # (Manual) Eosinophils # (Manual) Basophils # (Manual) PT INR D-Dimer ABG pH POC ABG pCO2 POC ABG pO2 ABG pO2 ABG HCO3 ABG O2 Saturation ABG Base Excess ABG Hemoglobin ABG Oxyhemoglobin ABG Potassium ABG Glucose Oxyhemoglobin Carboxyhemoglobin Sodium Potassium Chloride Carbon Dioxide BUN Creatinine Glucose POC Glucose 123 H 148 H 106 H Calcium Ferritin Total Bilirubin Alkaline Phosphatase Lactate Dehydrogenase Total Creatine Kinase CK-MB (CK-2) Rel Index Troponin T C-Reactive Protein Total Protein Albumin Prealbumin LDL Cholesterol Direct HDL Cholesterol Arterial Blood Glucose Arterial Blood Ionized Calcium Urine WBC (Auto) 04/06/20 04/06/20 04/06/20 00:47 03:26 08:24 WBC RBC Hgb Hct MCV MCH RDW Plt Count Lymph % (Auto) [place] % (Auto) Lymph # (Auto) [place] # (Auto) Seg Neutrophils % Seg Neuts % (Manual) Lymphocytes % (Manual) Monocytes % (Manual) Basophils % (Manual) Seg Neutrophils # Seg Neutrophils # Man Lymphocytes # (Manual) Monocytes # (Manual) Eosinophils # (Manual) Basophils # (Manual) PT INR D-Dimer ABG pH POC ABG pCO2 POC ABG pO2 ABG pO2 ABG HCO3 ABG O2 Saturation ABG Base Excess ABG Hemoglobin ABG Oxyhemoglobin ABG Potassium ABG Glucose Oxyhemoglobin Carboxyhemoglobin Sodium Potassium Chloride Carbon Dioxide BUN Creatinine Glucose POC Glucose 129 H 134 H 131 H Calcium Ferritin Total Bilirubin Alkaline Phosphatase Lactate Dehydrogenase Total Creatine Kinase CK-MB (CK-2) Rel Index Troponin T C-Reactive Protein Total Protein Albumin Prealbumin LDL Cholesterol Direct HDL Cholesterol Arterial Blood Glucose Arterial Blood Ionized Calcium Urine WBC (Auto) 04/06/20 04/06/20 04/06/20 11:16 16:27 23:01 WBC RBC Hgb Hct MCV MCH RDW Plt Count Lymph % (Auto) [place] % (Auto) Lymph # (Auto) [place] # (Auto) Seg Neutrophils % Seg Neuts % (Manual) Lymphocytes % (Manual) Monocytes % (Manual) Basophils % (Manual) Seg Neutrophils # Seg Neutrophils # Man Lymphocytes # (Manual) Monocytes # (Manual) Eosinophils # (Manual) Basophils # (Manual) PT INR D-Dimer ABG pH POC ABG pCO2 POC ABG pO2 ABG pO2 ABG HCO3 ABG O2 Saturation ABG Base Excess ABG Hemoglobin ABG Oxyhemoglobin ABG Potassium ABG Glucose Oxyhemoglobin Carboxyhemoglobin Sodium Potassium Chloride Carbon Dioxide BUN Creatinine Glucose POC Glucose 131 H 107 H 125 H Calcium Ferritin Total Bilirubin Alkaline Phosphatase Lactate Dehydrogenase Total Creatine Kinase CK-MB (CK-2) Rel Index Troponin T C-Reactive Protein Total Protein Albumin Prealbumin LDL Cholesterol Direct HDL Cholesterol Arterial Blood Glucose Arterial Blood Ionized Calcium Urine WBC (Auto) 04/07/20 04/07/20 04/07/20 05:24 12:41 17:40 WBC RBC Hgb Hct MCV MCH RDW Plt Count Lymph % (Auto) [place] % (Auto) Lymph # (Auto) [place] # (Auto) Seg Neutrophils % Seg Neuts % (Manual) Lymphocytes % (Manual) Monocytes % (Manual) Basophils % (Manual) Seg Neutrophils # Seg Neutrophils # Man Lymphocytes # (Manual) Monocytes # (Manual) Eosinophils # (Manual) Basophils # (Manual) PT INR D-Dimer ABG pH POC ABG pCO2 POC ABG pO2 ABG pO2 ABG HCO3 ABG O2 Saturation ABG Base Excess ABG Hemoglobin ABG Oxyhemoglobin ABG Potassium ABG Glucose Oxyhemoglobin Carboxyhemoglobin Sodium Potassium Chloride Carbon Dioxide BUN Creatinine Glucose POC Glucose 125 H 145 H 123 H Calcium Ferritin Total Bilirubin Alkaline Phosphatase Lactate Dehydrogenase Total Creatine Kinase CK-MB (CK-2) Rel Index Troponin T C-Reactive Protein Total Protein Albumin Prealbumin LDL Cholesterol Direct HDL Cholesterol Arterial Blood Glucose Arterial Blood Ionized Calcium Urine WBC (Auto) 04/07/20 04/08/20 04/08/20 23:22 05:40 11:29 WBC RBC Hgb Hct MCV MCH RDW Plt Count Lymph % (Auto) [place] % (Auto) Lymph # (Auto) [place] # (Auto) Seg Neutrophils % Seg Neuts % (Manual) Lymphocytes % (Manual) Monocytes % (Manual) Basophils % (Manual) Seg Neutrophils # Seg Neutrophils # Man Lymphocytes # (Manual) Monocytes # (Manual) Eosinophils # (Manual) Basophils # (Manual) PT INR D-Dimer ABG pH POC ABG pCO2 POC ABG pO2 ABG pO2 ABG HCO3 ABG O2 Saturation ABG Base Excess ABG Hemoglobin ABG Oxyhemoglobin ABG Potassium ABG Glucose Oxyhemoglobin Carboxyhemoglobin Sodium Potassium Chloride Carbon Dioxide BUN Creatinine Glucose POC Glucose 133 H 125 H 116 H Calcium Ferritin Total Bilirubin Alkaline Phosphatase Lactate Dehydrogenase Total Creatine Kinase CK-MB (CK-2) Rel Index Troponin T C-Reactive Protein Total Protein Albumin Prealbumin LDL Cholesterol Direct HDL Cholesterol Arterial Blood Glucose Arterial Blood Ionized Calcium Urine WBC (Auto) 04/08/20 04/09/20 04/09/20 17:43 05:47 12:22 WBC RBC Hgb Hct MCV MCH RDW Plt Count Lymph % (Auto) [place] % (Auto) Lymph # (Auto) [place] # (Auto) Seg Neutrophils % Seg Neuts % (Manual) Lymphocytes % (Manual) Monocytes % (Manual) Basophils % (Manual) Seg Neutrophils # Seg Neutrophils # Man Lymphocytes # (Manual) Monocytes # (Manual) Eosinophils # (Manual) Basophils # (Manual) PT INR D-Dimer ABG pH POC ABG pCO2 POC ABG pO2 ABG pO2 ABG HCO3 ABG O2 Saturation ABG Base Excess ABG Hemoglobin ABG Oxyhemoglobin ABG Potassium ABG Glucose Oxyhemoglobin Carboxyhemoglobin Sodium Potassium Chloride Carbon Dioxide BUN Creatinine Glucose POC Glucose 123 H 108 H 116 H Calcium Ferritin Total Bilirubin Alkaline Phosphatase Lactate Dehydrogenase Total Creatine Kinase CK-MB (CK-2) Rel Index Troponin T C-Reactive Protein Total Protein Albumin Prealbumin LDL Cholesterol Direct HDL Cholesterol Arterial Blood Glucose Arterial Blood Ionized Calcium Urine WBC (Auto) 04/09/20 04/09/20 04/10/20 17:24 23:52 06:10 WBC RBC Hgb Hct MCV MCH RDW Plt Count Lymph % (Auto) [place] % (Auto) Lymph # (Auto) [place] # (Auto) Seg Neutrophils % Seg Neuts % (Manual) Lymphocytes % (Manual) Monocytes % (Manual) Basophils % (Manual) Seg Neutrophils # Seg Neutrophils # Man Lymphocytes # (Manual) Monocytes # (Manual) Eosinophils # (Manual) Basophils # (Manual) PT INR D-Dimer ABG pH POC ABG pCO2 POC ABG pO2 ABG pO2 ABG HCO3 ABG O2 Saturation ABG Base Excess ABG Hemoglobin ABG Oxyhemoglobin ABG Potassium ABG Glucose Oxyhemoglobin Carboxyhemoglobin Sodium Potassium Chloride Carbon Dioxide BUN Creatinine Glucose POC Glucose 108 H 126 H 122 H Calcium Ferritin Total Bilirubin Alkaline Phosphatase Lactate Dehydrogenase Total Creatine Kinase CK-MB (CK-2) Rel Index Troponin T C-Reactive Protein Total Protein Albumin Prealbumin LDL Cholesterol Direct HDL Cholesterol Arterial Blood Glucose Arterial Blood Ionized Calcium Urine WBC (Auto) 04/10/20 04/10/20 04/10/20 11:27 18:11 23:24 WBC RBC Hgb Hct MCV MCH RDW Plt Count Lymph % (Auto) [place] % (Auto) Lymph # (Auto) [place] # (Auto) Seg Neutrophils % Seg Neuts % (Manual) Lymphocytes % (Manual) Monocytes % (Manual) Basophils % (Manual) Seg Neutrophils # Seg Neutrophils # Man Lymphocytes # (Manual) Monocytes # (Manual) Eosinophils # (Manual) Basophils # (Manual) PT INR D-Dimer ABG pH POC ABG pCO2 POC ABG pO2 ABG pO2 ABG HCO3 ABG O2 Saturation ABG Base Excess ABG Hemoglobin ABG Oxyhemoglobin ABG Potassium ABG Glucose Oxyhemoglobin Carboxyhemoglobin Sodium Potassium Chloride Carbon Dioxide BUN Creatinine Glucose POC Glucose 129 H 125 H 107 H Calcium Ferritin Total Bilirubin Alkaline Phosphatase Lactate Dehydrogenase Total Creatine Kinase CK-MB (CK-2) Rel Index Troponin T C-Reactive Protein Total Protein Albumin Prealbumin LDL Cholesterol Direct HDL Cholesterol Arterial Blood Glucose Arterial Blood Ionized Calcium Urine WBC (Auto) 04/11/20 04/11/20 04/11/20 05:28 11:46 23:49 WBC RBC Hgb Hct MCV MCH RDW Plt Count Lymph % (Auto) [place] % (Auto) Lymph # (Auto) [place] # (Auto) Seg Neutrophils % Seg Neuts % (Manual) Lymphocytes % (Manual) Monocytes % (Manual) Basophils % (Manual) Seg Neutrophils # Seg Neutrophils # Man Lymphocytes # (Manual) Monocytes # (Manual) Eosinophils # (Manual) Basophils # (Manual) PT INR D-Dimer ABG pH POC ABG pCO2 POC ABG pO2 ABG pO2 ABG HCO3 ABG O2 Saturation ABG Base Excess ABG Hemoglobin ABG Oxyhemoglobin ABG Potassium ABG Glucose Oxyhemoglobin Carboxyhemoglobin Sodium Potassium Chloride Carbon Dioxide BUN Creatinine Glucose POC Glucose 122 H 122 H 116 H Calcium Ferritin Total Bilirubin Alkaline Phosphatase Lactate Dehydrogenase Total Creatine Kinase CK-MB (CK-2) Rel Index Troponin T C-Reactive Protein Total Protein Albumin Prealbumin LDL Cholesterol Direct HDL Cholesterol Arterial Blood Glucose Arterial Blood Ionized Calcium Urine WBC (Auto) 04/12/20 04/12/20 04/12/20 09:07 09:07 11:39 WBC 13.1 H RBC 3.59 L Hgb 9.5 L Hct 29.8 L MCV 83 L MCH 26 L RDW 16.6 H Plt Count 591 H Lymph % (Auto) [place] % (Auto) Lymph # (Auto) [place] # (Auto) Seg Neutrophils % Seg Neuts % (Manual) 86.0 H Lymphocytes % (Manual) 7.0 L Monocytes % (Manual) Basophils % (Manual) Seg Neutrophils # Seg Neutrophils # Man 11.3 H Lymphocytes # (Manual) 0.9 L Monocytes # (Manual) Eosinophils # (Manual) Basophils # (Manual) PT INR D-Dimer ABG pH POC ABG pCO2 POC ABG pO2 ABG pO2 ABG HCO3 ABG O2 Saturation ABG Base Excess ABG Hemoglobin ABG Oxyhemoglobin ABG Potassium ABG Glucose Oxyhemoglobin Carboxyhemoglobin Sodium Potassium Chloride Carbon Dioxide 36 H BUN Creatinine < 0.2 L Glucose 132 H POC Glucose 136 H Calcium Ferritin Total Bilirubin Alkaline Phosphatase Lactate Dehydrogenase Total Creatine Kinase CK-MB (CK-2) Rel Index Troponin T C-Reactive Protein Total Protein Albumin 2.7 L Prealbumin LDL Cholesterol Direct HDL Cholesterol Arterial Blood Glucose Arterial Blood Ionized Calcium Urine WBC (Auto) 04/12/20 04/12/20 04/13/20 18:13 23:07 05:45 WBC RBC Hgb Hct MCV MCH RDW Plt Count Lymph % (Auto) [place] % (Auto) Lymph # (Auto) [place] # (Auto) Seg Neutrophils % Seg Neuts % (Manual) Lymphocytes % (Manual) Monocytes % (Manual) Basophils % (Manual) Seg Neutrophils # Seg Neutrophils # Man Lymphocytes # (Manual) Monocytes # (Manual) Eosinophils # (Manual) Basophils # (Manual) PT INR D-Dimer ABG pH POC ABG pCO2 POC ABG pO2 ABG pO2 ABG HCO3 ABG O2 Saturation ABG Base Excess ABG Hemoglobin ABG Oxyhemoglobin ABG Potassium ABG Glucose Oxyhemoglobin Carboxyhemoglobin Sodium Potassium Chloride Carbon Dioxide BUN Creatinine Glucose POC Glucose 107 H 106 H 125 H Calcium Ferritin Total Bilirubin Alkaline Phosphatase Lactate Dehydrogenase Total Creatine Kinase CK-MB (CK-2) Rel Index Troponin T C-Reactive Protein Total Protein Albumin Prealbumin LDL Cholesterol Direct HDL Cholesterol Arterial Blood Glucose Arterial Blood Ionized Calcium Urine WBC (Auto) 04/13/20 04/13/20 04/13/20 11:18 17:56 23:33 WBC RBC Hgb Hct MCV MCH RDW Plt Count Lymph % (Auto) [place] % (Auto) Lymph # (Auto) [place] # (Auto) Seg Neutrophils % Seg Neuts % (Manual) Lymphocytes % (Manual) Monocytes % (Manual) Basophils % (Manual) Seg Neutrophils # Seg Neutrophils # Man Lymphocytes # (Manual) Monocytes # (Manual) Eosinophils # (Manual) Basophils # (Manual) PT INR D-Dimer ABG pH POC ABG pCO2 POC ABG pO2 ABG pO2 ABG HCO3 ABG O2 Saturation ABG Base Excess ABG Hemoglobin ABG Oxyhemoglobin ABG Potassium ABG Glucose Oxyhemoglobin Carboxyhemoglobin Sodium Potassium Chloride Carbon Dioxide BUN Creatinine Glucose POC Glucose 133 H 110 H 114 H Calcium Ferritin Total Bilirubin Alkaline Phosphatase Lactate Dehydrogenase Total Creatine Kinase CK-MB (CK-2) Rel Index Troponin T C-Reactive Protein Total Protein Albumin Prealbumin LDL Cholesterol Direct HDL Cholesterol Arterial Blood Glucose Arterial Blood Ionized Calcium Urine WBC (Auto) 04/14/20 04/14/20 04/14/20 05:58 11:45 17:48 WBC RBC Hgb Hct MCV MCH RDW Plt Count Lymph % (Auto) [place] % (Auto) Lymph # (Auto) [place] # (Auto) Seg Neutrophils % Seg Neuts % (Manual) Lymphocytes % (Manual) Monocytes % (Manual) Basophils % (Manual) Seg Neutrophils # Seg Neutrophils # Man Lymphocytes # (Manual) Monocytes # (Manual) Eosinophils # (Manual) Basophils # (Manual) PT INR D-Dimer ABG pH POC ABG pCO2 POC ABG pO2 ABG pO2 ABG HCO3 ABG O2 Saturation ABG Base Excess ABG Hemoglobin ABG Oxyhemoglobin ABG Potassium ABG Glucose Oxyhemoglobin Carboxyhemoglobin Sodium Potassium Chloride Carbon Dioxide BUN Creatinine Glucose POC Glucose 115 H 122 H 124 H Calcium Ferritin Total Bilirubin Alkaline Phosphatase Lactate Dehydrogenase Total Creatine Kinase CK-MB (CK-2) Rel Index Troponin T C-Reactive Protein Total Protein Albumin Prealbumin LDL Cholesterol Direct HDL Cholesterol Arterial Blood Glucose Arterial Blood Ionized Calcium Urine WBC (Auto) 04/15/20 04/15/20 04/15/20 00:11 05:38 11:31 WBC RBC Hgb Hct MCV MCH RDW Plt Count Lymph % (Auto) [place] % (Auto) Lymph # (Auto) [place] # (Auto) Seg Neutrophils % Seg Neuts % (Manual) Lymphocytes % (Manual) Monocytes % (Manual) Basophils % (Manual) Seg Neutrophils # Seg Neutrophils # Man Lymphocytes # (Manual) Monocytes # (Manual) Eosinophils # (Manual) Basophils # (Manual) PT INR D-Dimer ABG pH POC ABG pCO2 POC ABG pO2 ABG pO2 ABG HCO3 ABG O2 Saturation ABG Base Excess ABG Hemoglobin ABG Oxyhemoglobin ABG Potassium ABG Glucose Oxyhemoglobin Carboxyhemoglobin Sodium Potassium Chloride Carbon Dioxide BUN Creatinine Glucose POC Glucose 120 H 109 H 123 H Calcium Ferritin Total Bilirubin Alkaline Phosphatase Lactate Dehydrogenase Total Creatine Kinase CK-MB (CK-2) Rel Index Troponin T C-Reactive Protein Total Protein Albumin Prealbumin LDL Cholesterol Direct HDL Cholesterol Arterial Blood Glucose Arterial Blood Ionized Calcium Urine WBC (Auto) 04/15/20 04/16/20 04/16/20 17:35 06:00 11:29 WBC RBC Hgb Hct MCV MCH RDW Plt Count Lymph % (Auto) [place] % (Auto) Lymph # (Auto) [place] # (Auto) Seg Neutrophils % Seg Neuts % (Manual) Lymphocytes % (Manual) Monocytes % (Manual) Basophils % (Manual) Seg Neutrophils # Seg Neutrophils # Man Lymphocytes # (Manual) Monocytes # (Manual) Eosinophils # (Manual) Basophils # (Manual) PT INR D-Dimer ABG pH POC ABG pCO2 POC ABG pO2 ABG pO2 ABG HCO3 ABG O2 Saturation ABG Base Excess ABG Hemoglobin ABG Oxyhemoglobin ABG Potassium ABG Glucose Oxyhemoglobin Carboxyhemoglobin Sodium Potassium Chloride Carbon Dioxide BUN Creatinine Glucose POC Glucose 111 H 142 H 108 H Calcium Ferritin Total Bilirubin Alkaline Phosphatase Lactate Dehydrogenase Total Creatine Kinase CK-MB (CK-2) Rel Index Troponin T C-Reactive Protein Total Protein Albumin Prealbumin LDL Cholesterol Direct HDL Cholesterol Arterial Blood Glucose Arterial Blood Ionized Calcium Urine WBC (Auto) 04/17/20 04/17/20 04/17/20 05:09 06:53 06:53 WBC 14.2 H RBC Hgb 10.1 L Hct 31.5 L MCV MCH 27 L RDW 17.2 H Plt Count 643 H Lymph % (Auto) [place] % (Auto) Lymph # (Auto) [place] # (Auto) Seg Neutrophils % Seg Neuts % (Manual) Lymphocytes % (Manual) Monocytes % (Manual) Basophils % (Manual) Seg Neutrophils # Seg Neutrophils # Man Lymphocytes # (Manual) Monocytes # (Manual) Eosinophils # (Manual) Basophils # (Manual) PT INR D-Dimer ABG pH POC ABG pCO2 POC ABG pO2 ABG pO2 ABG HCO3 ABG O2 Saturation ABG Base Excess ABG Hemoglobin ABG Oxyhemoglobin ABG Potassium ABG Glucose Oxyhemoglobin Carboxyhemoglobin Sodium Potassium Chloride 97.7 L Carbon Dioxide 38 H BUN Creatinine < 0.2 L Glucose 126 H POC Glucose 131 H Calcium Ferritin Total Bilirubin Alkaline Phosphatase Lactate Dehydrogenase Total Creatine Kinase CK-MB (CK-2) Rel Index Troponin T C-Reactive Protein Total Protein Albumin Prealbumin LDL Cholesterol Direct HDL Cholesterol Arterial Blood Glucose Arterial Blood Ionized Calcium Urine WBC (Auto) 04/17/20 04/18/20 04/18/20 11:21 00:23 04:01 WBC 15.3 H RBC Hgb 10.1 L Hct 31.9 L MCV 82 L MCH 26 L RDW 17.2 H Plt Count 665 H Lymph % (Auto) 12.9 L [place] % (Auto) Lymph # (Auto) [place] # (Auto) 1.1 H Seg Neutrophils % 78.0 H Seg Neuts % (Manual) Lymphocytes % (Manual) Monocytes % (Manual) Basophils % (Manual) Seg Neutrophils # 11.9 H Seg Neutrophils # Man Lymphocytes # (Manual) Monocytes # (Manual) Eosinophils # (Manual) Basophils # (Manual) PT INR D-Dimer ABG pH POC ABG pCO2 POC ABG pO2 ABG pO2 ABG HCO3 ABG O2 Saturation ABG Base Excess ABG Hemoglobin ABG Oxyhemoglobin ABG Potassium ABG Glucose Oxyhemoglobin Carboxyhemoglobin Sodium Potassium Chloride Carbon Dioxide BUN Creatinine Glucose POC Glucose 140 H 125 H Calcium Ferritin Total Bilirubin Alkaline Phosphatase Lactate Dehydrogenase Total Creatine Kinase CK-MB (CK-2) Rel Index Troponin T C-Reactive Protein Total Protein Albumin Prealbumin LDL Cholesterol Direct HDL Cholesterol Arterial Blood Glucose Arterial Blood Ionized Calcium Urine WBC (Auto) 04/18/20 04/18/20 04/18/20 04:01 11:29 17:30 WBC RBC Hgb Hct MCV MCH RDW Plt Count Lymph % (Auto) [place] % (Auto) Lymph # (Auto) [place] # (Auto) Seg Neutrophils % Seg Neuts % (Manual) Lymphocytes % (Manual) Monocytes % (Manual) Basophils % (Manual) Seg Neutrophils # Seg Neutrophils # Man Lymphocytes # (Manual) Monocytes # (Manual) Eosinophils # (Manual) Basophils # (Manual) PT INR D-Dimer ABG pH POC ABG pCO2 POC ABG pO2 ABG pO2 ABG HCO3 ABG O2 Saturation ABG Base Excess ABG Hemoglobin ABG Oxyhemoglobin ABG Potassium ABG Glucose Oxyhemoglobin Carboxyhemoglobin Sodium Potassium Chloride 97.0 L Carbon Dioxide 38 H BUN Creatinine < 0.2 L Glucose 117 H POC Glucose 136 H 107 H Calcium Ferritin Total Bilirubin Alkaline Phosphatase Lactate Dehydrogenase Total Creatine Kinase CK-MB (CK-2) Rel Index Troponin T C-Reactive Protein Total Protein Albumin Prealbumin LDL Cholesterol Direct HDL Cholesterol Arterial Blood Glucose Arterial Blood Ionized Calcium Urine WBC (Auto) 04/18/20 04/19/20 04/19/20 23:19 06:51 06:51 WBC 12.2 H RBC Hgb 9.8 L Hct 31.1 L MCV 82 L MCH 26 L RDW 17.2 H Plt Count 549 H Lymph % (Auto) 6.5 L [place] % (Auto) Lymph # (Auto) 0.8 L [place] # (Auto) Seg Neutrophils % 86.7 H Seg Neuts % (Manual) Lymphocytes % (Manual) Monocytes % (Manual) Basophils % (Manual) Seg Neutrophils # 10.6 H Seg Neutrophils # Man Lymphocytes # (Manual) Monocytes # (Manual) Eosinophils # (Manual) Basophils # (Manual) PT INR D-Dimer ABG pH POC ABG pCO2 POC ABG pO2 ABG pO2 ABG HCO3 ABG O2 Saturation ABG Base Excess ABG Hemoglobin ABG Oxyhemoglobin ABG Potassium ABG Glucose Oxyhemoglobin Carboxyhemoglobin Sodium Potassium Chloride 97.8 L Carbon Dioxide 38 H BUN Creatinine < 0.2 L Glucose 123 H POC Glucose 127 H Calcium Ferritin Total Bilirubin Alkaline Phosphatase Lactate Dehydrogenase Total Creatine Kinase CK-MB (CK-2) Rel Index Troponin T C-Reactive Protein Total Protein Albumin Prealbumin LDL Cholesterol Direct HDL Cholesterol Arterial Blood Glucose Arterial Blood Ionized Calcium Urine WBC (Auto) 04/19/20 04/19/20 04/20/20 13:41 18:33 05:56 WBC RBC Hgb Hct MCV MCH RDW Plt Count Lymph % (Auto) [place] % (Auto) Lymph # (Auto) [place] # (Auto) Seg Neutrophils % Seg Neuts % (Manual) Lymphocytes % (Manual) Monocytes % (Manual) Basophils % (Manual) Seg Neutrophils # Seg Neutrophils # Man Lymphocytes # (Manual) Monocytes # (Manual) Eosinophils # (Manual) Basophils # (Manual) PT INR D-Dimer ABG pH POC ABG pCO2 POC ABG pO2 ABG pO2 ABG HCO3 ABG O2 Saturation ABG Base Excess ABG Hemoglobin ABG Oxyhemoglobin ABG Potassium ABG Glucose Oxyhemoglobin Carboxyhemoglobin Sodium Potassium Chloride Carbon Dioxide BUN Creatinine Glucose POC Glucose 116 H 124 H 130 H Calcium Ferritin Total Bilirubin Alkaline Phosphatase Lactate Dehydrogenase Total Creatine Kinase CK-MB (CK-2) Rel Index Troponin T C-Reactive Protein Total Protein Albumin Prealbumin LDL Cholesterol Direct HDL Cholesterol Arterial Blood Glucose Arterial Blood Ionized Calcium Urine WBC (Auto) 04/20/20 04/20/20 04/20/20 06:28 06:28 11:46 WBC RBC Hgb 10.2 L Hct 31.5 L MCV 82 L MCH 27 L RDW 17.1 H Plt Count 546 H Lymph % (Auto) 10.0 L [place] % (Auto) 9.8 H Lymph # (Auto) 1.1 L [place] # (Auto) 1.1 H Seg Neutrophils % 78.4 H Seg Neuts % (Manual) Lymphocytes % (Manual) Monocytes % (Manual) Basophils % (Manual) Seg Neutrophils # 8.5 H Seg Neutrophils # Man Lymphocytes # (Manual) Monocytes # (Manual) Eosinophils # (Manual) Basophils # (Manual) PT INR D-Dimer ABG pH POC ABG pCO2 POC ABG pO2 ABG pO2 ABG HCO3 ABG O2 Saturation ABG Base Excess ABG Hemoglobin ABG Oxyhemoglobin ABG Potassium ABG Glucose Oxyhemoglobin Carboxyhemoglobin Sodium Potassium Chloride 97.0 L Carbon Dioxide 38 H BUN Creatinine < 0.2 L Glucose 138 H POC Glucose 130 H Calcium Ferritin Total Bilirubin Alkaline Phosphatase Lactate Dehydrogenase Total Creatine Kinase CK-MB (CK-2) Rel Index Troponin T C-Reactive Protein Total Protein Albumin Prealbumin LDL Cholesterol Direct HDL Cholesterol Arterial Blood Glucose Arterial Blood Ionized Calcium Urine WBC (Auto) 04/20/20 04/21/20 04/21/20 23:31 05:55 05:55 WBC RBC Hgb 10.0 L Hct 31.1 L MCV 82 L MCH 26 L RDW 17.0 H Plt Count 535 H Lymph % (Auto) [place] % (Auto) 9.2 H Lymph # (Auto) 1.1 L [place] # (Auto) Seg Neutrophils % 75.4 H Seg Neuts % (Manual) Lymphocytes % (Manual) Monocytes % (Manual) Basophils % (Manual) Seg Neutrophils # Seg Neutrophils # Man Lymphocytes # (Manual) Monocytes # (Manual) Eosinophils # (Manual) Basophils # (Manual) PT INR D-Dimer ABG pH POC ABG pCO2 POC ABG pO2 ABG pO2 ABG HCO3 ABG O2 Saturation ABG Base Excess ABG Hemoglobin ABG Oxyhemoglobin ABG Potassium ABG Glucose Oxyhemoglobin Carboxyhemoglobin Sodium Potassium Chloride 95.0 L Carbon Dioxide 34 H BUN Creatinine < 0.2 L Glucose 125 H POC Glucose 116 H Calcium Ferritin Total Bilirubin Alkaline Phosphatase Lactate Dehydrogenase Total Creatine Kinase CK-MB (CK-2) Rel Index Troponin T C-Reactive Protein Total Protein Albumin Prealbumin LDL Cholesterol Direct HDL Cholesterol Arterial Blood Glucose Arterial Blood Ionized Calcium Urine WBC (Auto) 04/22/20 04/22/20 04/22/20 00:01 07:45 07:45 WBC RBC Hgb 10.0 L Hct 30.7 L MCV 81 L MCH 27 L RDW 17.1 H Plt Count 490 H Lymph % (Auto) [place] % (Auto) Lymph # (Auto) [place] # (Auto) Seg Neutrophils % Seg Neuts % (Manual) 75.0 H Lymphocytes % (Manual) 11.0 L Monocytes % (Manual) 9.0 H Basophils % (Manual) Seg Neutrophils # Seg Neutrophils # Man Lymphocytes # (Manual) 0.8 L Monocytes # (Manual) Eosinophils # (Manual) Basophils # (Manual) PT INR D-Dimer ABG pH POC ABG pCO2 POC ABG pO2 ABG pO2 ABG HCO3 ABG O2 Saturation ABG Base Excess ABG Hemoglobin ABG Oxyhemoglobin ABG Potassium ABG Glucose Oxyhemoglobin Carboxyhemoglobin Sodium Potassium Chloride 96.3 L Carbon Dioxide 40 H BUN Creatinine < 0.2 L Glucose 109 H POC Glucose 110 H Calcium Ferritin Total Bilirubin Alkaline Phosphatase Lactate Dehydrogenase Total Creatine Kinase CK-MB (CK-2) Rel Index Troponin T C-Reactive Protein Total Protein Albumin Prealbumin LDL Cholesterol Direct HDL Cholesterol Arterial Blood Glucose Arterial Blood Ionized Calcium Urine WBC (Auto) 04/23/20 04/23/20 04/23/20 04:28 04:28 04:28 WBC RBC 3.64 L Hgb 9.7 L Hct 29.4 L MCV 81 L MCH 27 L RDW 17.2 H Plt Count 527 H Lymph % (Auto) [place] % (Auto) 8.9 H Lymph # (Auto) [place] # (Auto) Seg Neutrophils % Seg Neuts % (Manual) Lymphocytes % (Manual) Monocytes % (Manual) Basophils % (Manual) Seg Neutrophils # Seg Neutrophils # Man Lymphocytes # (Manual) Monocytes # (Manual) Eosinophils # (Manual) Basophils # (Manual) PT INR D-Dimer ABG pH POC ABG pCO2 POC ABG pO2 ABG pO2 ABG HCO3 ABG O2 Saturation ABG Base Excess ABG Hemoglobin ABG Oxyhemoglobin ABG Potassium ABG Glucose Oxyhemoglobin Carboxyhemoglobin Sodium Potassium Chloride 96.4 L Carbon Dioxide 32 H D BUN Creatinine < 0.2 L Glucose 134 H POC Glucose Calcium Ferritin Total Bilirubin Alkaline Phosphatase Lactate Dehydrogenase Total Creatine Kinase CK-MB (CK-2) Rel Index Troponin T 0.151 H* C-Reactive Protein Total Protein Albumin Prealbumin LDL Cholesterol Direct HDL Cholesterol 29 L Arterial Blood Glucose Arterial Blood Ionized Calcium Urine WBC (Auto) 04/23/20 04/23/20 04/24/20 06:03 23:41 05:28 WBC RBC 3.56 L Hgb 9.5 L Hct 28.9 L MCV 81 L MCH 27 L RDW 17.4 H Plt Count 462 H Lymph % (Auto) [place] % (Auto) Lymph # (Auto) [place] # (Auto) Seg Neutrophils % Seg Neuts % (Manual) 80.0 H Lymphocytes % (Manual) Monocytes % (Manual) Basophils % (Manual) Seg Neutrophils # Seg Neutrophils # Man Lymphocytes # (Manual) Monocytes # (Manual) Eosinophils # (Manual) Basophils # (Manual) PT INR D-Dimer ABG pH POC ABG pCO2 POC ABG pO2 ABG pO2 ABG HCO3 ABG O2 Saturation ABG Base Excess ABG Hemoglobin ABG Oxyhemoglobin ABG Potassium ABG Glucose Oxyhemoglobin Carboxyhemoglobin Sodium Potassium Chloride Carbon Dioxide BUN Creatinine Glucose POC Glucose 132 H 117 H Calcium Ferritin Total Bilirubin Alkaline Phosphatase Lactate Dehydrogenase Total Creatine Kinase CK-MB (CK-2) Rel Index Troponin T C-Reactive Protein Total Protein Albumin Prealbumin LDL Cholesterol Direct HDL Cholesterol Arterial Blood Glucose Arterial Blood Ionized Calcium Urine WBC (Auto) 04/24/20 04/24/20 04/24/20 05:28 05:28 05:33 WBC RBC Hgb Hct MCV MCH RDW Plt Count Lymph % (Auto) [place] % (Auto) Lymph # (Auto) [place] # (Auto) Seg Neutrophils % Seg Neuts % (Manual) Lymphocytes % (Manual) Monocytes % (Manual) Basophils % (Manual) Seg Neutrophils # Seg Neutrophils # Man Lymphocytes # (Manual) Monocytes # (Manual) Eosinophils # (Manual) Basophils # (Manual) PT INR D-Dimer ABG pH POC ABG pCO2 POC ABG pO2 ABG pO2 ABG HCO3 ABG O2 Saturation ABG Base Excess ABG Hemoglobin ABG Oxyhemoglobin ABG Potassium ABG Glucose Oxyhemoglobin Carboxyhemoglobin Sodium Potassium Chloride 96.1 L Carbon Dioxide 40 H D BUN Creatinine < 0.2 L Glucose 115 H POC Glucose 109 H Calcium Ferritin Total Bilirubin Alkaline Phosphatase Lactate Dehydrogenase Total Creatine Kinase CK-MB (CK-2) Rel Index Troponin T 0.181 H* C-Reactive Protein Total Protein Albumin Prealbumin LDL Cholesterol Direct HDL Cholesterol Arterial Blood Glucose Arterial Blood Ionized Calcium Urine WBC (Auto) 04/24/20 04/24/20 04/25/20 11:17 18:23 00:12 WBC RBC Hgb Hct MCV MCH RDW Plt Count Lymph % (Auto) [place] % (Auto) Lymph # (Auto) [place] # (Auto) Seg Neutrophils % Seg Neuts % (Manual) Lymphocytes % (Manual) Monocytes % (Manual) Basophils % (Manual) Seg Neutrophils # Seg Neutrophils # Man Lymphocytes # (Manual) Monocytes # (Manual) Eosinophils # (Manual) Basophils # (Manual) PT INR D-Dimer ABG pH POC ABG pCO2 POC ABG pO2 ABG pO2 ABG HCO3 ABG O2 Saturation ABG Base Excess ABG Hemoglobin ABG Oxyhemoglobin ABG Potassium ABG Glucose Oxyhemoglobin Carboxyhemoglobin Sodium Potassium Chloride Carbon Dioxide BUN Creatinine Glucose POC Glucose 117 H 109 H 113 H Calcium Ferritin Total Bilirubin Alkaline Phosphatase Lactate Dehydrogenase Total Creatine Kinase CK-MB (CK-2) Rel Index Troponin T C-Reactive Protein Total Protein Albumin Prealbumin LDL Cholesterol Direct HDL Cholesterol Arterial Blood Glucose Arterial Blood Ionized Calcium Urine WBC (Auto) 04/25/20 04/25/20 04/25/20 06:34 06:34 11:28 WBC 11.7 H RBC Hgb 10.0 L Hct 31.7 L MCV 82 L MCH 26 L RDW 17.5 H Plt Count 564 H Lymph % (Auto) [place] % (Auto) Lymph # (Auto) [place] # (Auto) Seg Neutrophils % Seg Neuts % (Manual) 78.0 H Lymphocytes % (Manual) 10.0 L Monocytes % (Manual) 9.0 H Basophils % (Manual) Seg Neutrophils # Seg Neutrophils # Man 9.1 H Lymphocytes # (Manual) Monocytes # (Manual) 1.1 H Eosinophils # (Manual) Basophils # (Manual) PT INR D-Dimer ABG pH POC ABG pCO2 POC ABG pO2 ABG pO2 ABG HCO3 ABG O2 Saturation ABG Base Excess ABG Hemoglobin ABG Oxyhemoglobin ABG Potassium ABG Glucose Oxyhemoglobin Carboxyhemoglobin Sodium Potassium Chloride Carbon Dioxide 39 H BUN Creatinine < 0.2 L Glucose 103 H POC Glucose 112 H Calcium Ferritin Total Bilirubin Alkaline Phosphatase Lactate Dehydrogenase Total Creatine Kinase CK-MB (CK-2) Rel Index Troponin T C-Reactive Protein Total Protein Albumin Prealbumin LDL Cholesterol Direct HDL Cholesterol Arterial Blood Glucose Arterial Blood Ionized Calcium Urine WBC (Auto) 04/27/20 04/27/20 04/27/20 11:48 17:08 23:31 WBC RBC Hgb Hct MCV MCH RDW Plt Count Lymph % (Auto) [place] % (Auto) Lymph # (Auto) [place] # (Auto) Seg Neutrophils % Seg Neuts % (Manual) Lymphocytes % (Manual) Monocytes % (Manual) Basophils % (Manual) Seg Neutrophils # Seg Neutrophils # Man Lymphocytes # (Manual) Monocytes # (Manual) Eosinophils # (Manual) Basophils # (Manual) PT INR D-Dimer ABG pH POC ABG pCO2 POC ABG pO2 ABG pO2 ABG HCO3 ABG O2 Saturation ABG Base Excess ABG Hemoglobin ABG Oxyhemoglobin ABG Potassium ABG Glucose Oxyhemoglobin Carboxyhemoglobin Sodium Potassium Chloride Carbon Dioxide BUN Creatinine Glucose POC Glucose 124 H 118 H 122 H Calcium Ferritin Total Bilirubin Alkaline Phosphatase Lactate Dehydrogenase Total Creatine Kinase CK-MB (CK-2) Rel Index Troponin T C-Reactive Protein Total Protein Albumin Prealbumin LDL Cholesterol Direct HDL Cholesterol Arterial Blood Glucose Arterial Blood Ionized Calcium Urine WBC (Auto) 04/28/20 04/29/20 04/29/20 05:42 00:14 05:30 WBC RBC Hgb Hct MCV MCH RDW Plt Count Lymph % (Auto) [place] % (Auto) Lymph # (Auto) [place] # (Auto) Seg Neutrophils % Seg Neuts % (Manual) Lymphocytes % (Manual) Monocytes % (Manual) Basophils % (Manual) Seg Neutrophils # Seg Neutrophils # Man Lymphocytes # (Manual) Monocytes # (Manual) Eosinophils # (Manual) Basophils # (Manual) PT INR D-Dimer ABG pH POC ABG pCO2 POC ABG pO2 ABG pO2 ABG HCO3 ABG O2 Saturation ABG Base Excess ABG Hemoglobin ABG Oxyhemoglobin ABG Potassium ABG Glucose Oxyhemoglobin Carboxyhemoglobin Sodium Potassium Chloride Carbon Dioxide BUN Creatinine Glucose POC Glucose 122 H 115 H 123 H Calcium Ferritin Total Bilirubin Alkaline Phosphatase Lactate Dehydrogenase Total Creatine Kinase CK-MB (CK-2) Rel Index Troponin T C-Reactive Protein Total Protein Albumin Prealbumin LDL Cholesterol Direct HDL Cholesterol Arterial Blood Glucose Arterial Blood Ionized Calcium Urine WBC (Auto) 04/30/20 05/01/20 05/01/20 00:29 05:39 12:30 WBC RBC Hgb Hct MCV MCH RDW Plt Count Lymph % (Auto) [place] % (Auto) Lymph # (Auto) [place] # (Auto) Seg Neutrophils % Seg Neuts % (Manual) Lymphocytes % (Manual) Monocytes % (Manual) Basophils % (Manual) Seg Neutrophils # Seg Neutrophils # Man Lymphocytes # (Manual) Monocytes # (Manual) Eosinophils # (Manual) Basophils # (Manual) PT INR D-Dimer ABG pH POC ABG pCO2 POC ABG pO2 ABG pO2 ABG HCO3 ABG O2 Saturation ABG Base Excess ABG Hemoglobin ABG Oxyhemoglobin ABG Potassium ABG Glucose Oxyhemoglobin Carboxyhemoglobin Sodium Potassium Chloride Carbon Dioxide BUN Creatinine Glucose POC Glucose 106 H 109 H 108 H Calcium Ferritin Total Bilirubin Alkaline Phosphatase Lactate Dehydrogenase Total Creatine Kinase CK-MB (CK-2) Rel Index Troponin T C-Reactive Protein Total Protein Albumin Prealbumin LDL Cholesterol Direct HDL Cholesterol Arterial Blood Glucose Arterial Blood Ionized Calcium Urine WBC (Auto) 05/01/20 05/03/20 05/03/20 23:35 05:09 11:36 WBC RBC Hgb Hct MCV MCH RDW Plt Count Lymph % (Auto) [place] % (Auto) Lymph # (Auto) [place] # (Auto) Seg Neutrophils % Seg Neuts % (Manual) Lymphocytes % (Manual) Monocytes % (Manual) Basophils % (Manual) Seg Neutrophils # Seg Neutrophils # Man Lymphocytes # (Manual) Monocytes # (Manual) Eosinophils # (Manual) Basophils # (Manual) PT INR D-Dimer ABG pH POC ABG pCO2 POC ABG pO2 ABG pO2 ABG HCO3 ABG O2 Saturation ABG Base Excess ABG Hemoglobin ABG Oxyhemoglobin ABG Potassium ABG Glucose Oxyhemoglobin Carboxyhemoglobin Sodium Potassium Chloride Carbon Dioxide BUN Creatinine Glucose POC Glucose 116 H 117 H 116 H Calcium Ferritin Total Bilirubin Alkaline Phosphatase Lactate Dehydrogenase Total Creatine Kinase CK-MB (CK-2) Rel Index Troponin T C-Reactive Protein Total Protein Albumin Prealbumin LDL Cholesterol Direct HDL Cholesterol Arterial Blood Glucose Arterial Blood Ionized Calcium Urine WBC (Auto) 05/03/20 05/03/20 05/03/20 14:06 14:06 23:39 WBC 12.5 H RBC Hgb 10.0 L Hct 31.2 L MCV 80 L MCH 26 L RDW 17.6 H Plt Count 488 H Lymph % (Auto) [place] % (Auto) Lymph # (Auto) [place] # (Auto) Seg Neutrophils % Seg Neuts % (Manual) Lymphocytes % (Manual) Monocytes % (Manual) Basophils % (Manual) Seg Neutrophils # Seg Neutrophils # Man Lymphocytes # (Manual) Monocytes # (Manual) Eosinophils # (Manual) Basophils # (Manual) PT INR D-Dimer ABG pH POC ABG pCO2 POC ABG pO2 ABG pO2 ABG HCO3 ABG O2 Saturation ABG Base Excess ABG Hemoglobin ABG Oxyhemoglobin ABG Potassium ABG Glucose Oxyhemoglobin Carboxyhemoglobin Sodium Potassium Chloride 95.4 L Carbon Dioxide 40 H BUN Creatinine < 0.2 L Glucose 121 H POC Glucose 107 H Calcium Ferritin Total Bilirubin Alkaline Phosphatase Lactate Dehydrogenase Total Creatine Kinase CK-MB (CK-2) Rel Index Troponin T C-Reactive Protein Total Protein Albumin Prealbumin LDL Cholesterol Direct HDL Cholesterol Arterial Blood Glucose Arterial Blood Ionized Calcium Urine WBC (Auto) 05/04/20 05/04/20 05/04/20 11:31 16:57 23:18 WBC RBC Hgb Hct MCV MCH RDW Plt Count Lymph % (Auto) [place] % (Auto) Lymph # (Auto) [place] # (Auto) Seg Neutrophils % Seg Neuts % (Manual) Lymphocytes % (Manual) Monocytes % (Manual) Basophils % (Manual) Seg Neutrophils # Seg Neutrophils # Man Lymphocytes # (Manual) Monocytes # (Manual) Eosinophils # (Manual) Basophils # (Manual) PT INR D-Dimer ABG pH POC ABG pCO2 POC ABG pO2 ABG pO2 ABG HCO3 ABG O2 Saturation ABG Base Excess ABG Hemoglobin ABG Oxyhemoglobin ABG Potassium ABG Glucose Oxyhemoglobin Carboxyhemoglobin Sodium Potassium Chloride Carbon Dioxide BUN Creatinine Glucose POC Glucose 113 H 126 H 126 H Calcium Ferritin Total Bilirubin Alkaline Phosphatase Lactate Dehydrogenase Total Creatine Kinase CK-MB (CK-2) Rel Index Troponin T C-Reactive Protein Total Protein Albumin Prealbumin LDL Cholesterol Direct HDL Cholesterol Arterial Blood Glucose Arterial Blood Ionized Calcium Urine WBC (Auto) 05/05/20 05/05/20 05/05/20 05:32 11:11 23:57 WBC RBC Hgb Hct MCV MCH RDW Plt Count Lymph % (Auto) [place] % (Auto) Lymph # (Auto) [place] # (Auto) Seg Neutrophils % Seg Neuts % (Manual) Lymphocytes % (Manual) Monocytes % (Manual) Basophils % (Manual) Seg Neutrophils # Seg Neutrophils # Man Lymphocytes # (Manual) Monocytes # (Manual) Eosinophils # (Manual) Basophils # (Manual) PT INR D-Dimer ABG pH POC ABG pCO2 POC ABG pO2 ABG pO2 ABG HCO3 ABG O2 Saturation ABG Base Excess ABG Hemoglobin ABG Oxyhemoglobin ABG Potassium ABG Glucose Oxyhemoglobin Carboxyhemoglobin Sodium Potassium Chloride Carbon Dioxide BUN Creatinine Glucose POC Glucose 109 H 124 H 119 H Calcium Ferritin Total Bilirubin Alkaline Phosphatase Lactate Dehydrogenase Total Creatine Kinase CK-MB (CK-2) Rel Index Troponin T C-Reactive Protein Total Protein Albumin Prealbumin LDL Cholesterol Direct HDL Cholesterol Arterial Blood Glucose Arterial Blood Ionized Calcium Urine WBC (Auto) 05/06/20 05/06/20 05/07/20 05:34 23:08 04:43 WBC RBC Hgb 10.1 L Hct 31.9 L MCV 81 L MCH 25 L RDW 17.6 H Plt Count 506 H Lymph % (Auto) [place] % (Auto) 8.6 H Lymph # (Auto) [place] # (Auto) 0.9 H Seg Neutrophils % Seg Neuts % (Manual) Lymphocytes % (Manual) Monocytes % (Manual) Basophils % (Manual) Seg Neutrophils # Seg Neutrophils # Man Lymphocytes # (Manual) Monocytes # (Manual) Eosinophils # (Manual) Basophils # (Manual) PT INR D-Dimer ABG pH POC ABG pCO2 POC ABG pO2 ABG pO2 ABG HCO3 ABG O2 Saturation ABG Base Excess ABG Hemoglobin ABG Oxyhemoglobin ABG Potassium ABG Glucose Oxyhemoglobin Carboxyhemoglobin Sodium Potassium Chloride Carbon Dioxide BUN Creatinine Glucose POC Glucose 121 H 107 H Calcium Ferritin Total Bilirubin Alkaline Phosphatase Lactate Dehydrogenase Total Creatine Kinase CK-MB (CK-2) Rel Index Troponin T C-Reactive Protein Total Protein Albumin Prealbumin LDL Cholesterol Direct HDL Cholesterol Arterial Blood Glucose Arterial Blood Ionized Calcium Urine WBC (Auto) 05/07/20 05/07/20 05/07/20 06:18 17:13 23:29 WBC RBC Hgb Hct MCV MCH RDW Plt Count Lymph % (Auto) [place] % (Auto) Lymph # (Auto) [place] # (Auto) Seg Neutrophils % Seg Neuts % (Manual) Lymphocytes % (Manual) Monocytes % (Manual) Basophils % (Manual) Seg Neutrophils # Seg Neutrophils # Man Lymphocytes # (Manual) Monocytes # (Manual) Eosinophils # (Manual) Basophils # (Manual) PT INR D-Dimer ABG pH POC ABG pCO2 POC ABG pO2 ABG pO2 ABG HCO3 ABG O2 Saturation ABG Base Excess ABG Hemoglobin ABG Oxyhemoglobin ABG Potassium ABG Glucose Oxyhemoglobin Carboxyhemoglobin Sodium Potassium Chloride Carbon Dioxide BUN Creatinine Glucose POC Glucose 121 H 122 H 114 H Calcium Ferritin Total Bilirubin Alkaline Phosphatase Lactate Dehydrogenase Total Creatine Kinase CK-MB (CK-2) Rel Index Troponin T C-Reactive Protein Total Protein Albumin Prealbumin LDL Cholesterol Direct HDL Cholesterol Arterial Blood Glucose Arterial Blood Ionized Calcium Urine WBC (Auto) 05/08/20 05/08/20 05/08/20 05:20 11:57 23:42 WBC RBC Hgb Hct MCV MCH RDW Plt Count Lymph % (Auto) [place] % (Auto) Lymph # (Auto) [place] # (Auto) Seg Neutrophils % Seg Neuts % (Manual) Lymphocytes % (Manual) Monocytes % (Manual) Basophils % (Manual) Seg Neutrophils # Seg Neutrophils # Man Lymphocytes # (Manual) Monocytes # (Manual) Eosinophils # (Manual) Basophils # (Manual) PT INR D-Dimer ABG pH POC ABG pCO2 POC ABG pO2 ABG pO2 ABG HCO3 ABG O2 Saturation ABG Base Excess ABG Hemoglobin ABG Oxyhemoglobin ABG Potassium ABG Glucose Oxyhemoglobin Carboxyhemoglobin Sodium Potassium Chloride Carbon Dioxide BUN Creatinine Glucose POC Glucose 121 H 113 H 135 H Calcium Ferritin Total Bilirubin Alkaline Phosphatase Lactate Dehydrogenase Total Creatine Kinase CK-MB (CK-2) Rel Index Troponin T C-Reactive Protein Total Protein Albumin Prealbumin LDL Cholesterol Direct HDL Cholesterol Arterial Blood Glucose Arterial Blood Ionized Calcium Urine WBC (Auto) 05/09/20 05/09/20 05/09/20 05:31 11:11 16:06 WBC RBC Hgb Hct MCV MCH RDW Plt Count Lymph % (Auto) [place] % (Auto) Lymph # (Auto) [place] # (Auto) Seg Neutrophils % Seg Neuts % (Manual) Lymphocytes % (Manual) Monocytes % (Manual) Basophils % (Manual) Seg Neutrophils # Seg Neutrophils # Man Lymphocytes # (Manual) Monocytes # (Manual) Eosinophils # (Manual) Basophils # (Manual) PT INR D-Dimer ABG pH POC ABG pCO2 POC ABG pO2 ABG pO2 ABG HCO3 ABG O2 Saturation ABG Base Excess ABG Hemoglobin ABG Oxyhemoglobin ABG Potassium ABG Glucose Oxyhemoglobin Carboxyhemoglobin Sodium 136 L Potassium Chloride 97.0 L Carbon Dioxide 34 H BUN Creatinine < 0.2 L Glucose 107 H POC Glucose 66 L 127 H Calcium Ferritin Total Bilirubin Alkaline Phosphatase Lactate Dehydrogenase Total Creatine Kinase CK-MB (CK-2) Rel Index Troponin T C-Reactive Protein Total Protein Albumin Prealbumin LDL Cholesterol Direct HDL Cholesterol Arterial Blood Glucose Arterial Blood Ionized Calcium Urine WBC (Auto) 05/09/20 05/10/20 05/10/20 23:19 04:59 11:28 WBC RBC Hgb Hct MCV MCH RDW Plt Count Lymph % (Auto) [place] % (Auto) Lymph # (Auto) [place] # (Auto) Seg Neutrophils % Seg Neuts % (Manual) Lymphocytes % (Manual) Monocytes % (Manual) Basophils % (Manual) Seg Neutrophils # Seg Neutrophils # Man Lymphocytes # (Manual) Monocytes # (Manual) Eosinophils # (Manual) Basophils # (Manual) PT INR D-Dimer ABG pH POC ABG pCO2 POC ABG pO2 ABG pO2 ABG HCO3 ABG O2 Saturation ABG Base Excess ABG Hemoglobin ABG Oxyhemoglobin ABG Potassium ABG Glucose Oxyhemoglobin Carboxyhemoglobin Sodium Potassium Chloride Carbon Dioxide BUN Creatinine Glucose POC Glucose 108 H 126 H 124 H Calcium Ferritin Total Bilirubin Alkaline Phosphatase Lactate Dehydrogenase Total Creatine Kinase CK-MB (CK-2) Rel Index Troponin T C-Reactive Protein Total Protein Albumin Prealbumin LDL Cholesterol Direct HDL Cholesterol Arterial Blood Glucose Arterial Blood Ionized Calcium Urine WBC (Auto) 05/10/20 05/11/20 05/11/20 23:56 06:13 11:44 WBC RBC Hgb Hct MCV MCH RDW Plt Count Lymph % (Auto) [place] % (Auto) Lymph # (Auto) [place] # (Auto) Seg Neutrophils % Seg Neuts % (Manual) Lymphocytes % (Manual) Monocytes % (Manual) Basophils % (Manual) Seg Neutrophils # Seg Neutrophils # Man Lymphocytes # (Manual) Monocytes # (Manual) Eosinophils # (Manual) Basophils # (Manual) PT INR D-Dimer ABG pH POC ABG pCO2 POC ABG pO2 ABG pO2 ABG HCO3 ABG O2 Saturation ABG Base Excess ABG Hemoglobin ABG Oxyhemoglobin ABG Potassium ABG Glucose Oxyhemoglobin Carboxyhemoglobin Sodium Potassium Chloride Carbon Dioxide BUN Creatinine Glucose POC Glucose 113 H 124 H 125 H Calcium Ferritin Total Bilirubin Alkaline Phosphatase Lactate Dehydrogenase Total Creatine Kinase CK-MB (CK-2) Rel Index Troponin T C-Reactive Protein Total Protein Albumin Prealbumin LDL Cholesterol Direct HDL Cholesterol Arterial Blood Glucose Arterial Blood Ionized Calcium Urine WBC (Auto) 05/12/20 05/12/20 06:04 12:17 WBC RBC Hgb Hct MCV MCH RDW Plt Count Lymph % (Auto) [place] % (Auto) Lymph # (Auto) [place] # (Auto) Seg Neutrophils % Seg Neuts % (Manual) Lymphocytes % (Manual) Monocytes % (Manual) Basophils % (Manual) Seg Neutrophils # Seg Neutrophils # Man Lymphocytes # (Manual) Monocytes # (Manual) Eosinophils # (Manual) Basophils # (Manual) PT INR D-Dimer ABG pH POC ABG pCO2 POC ABG pO2 ABG pO2 ABG HCO3 ABG O2 Saturation ABG Base Excess ABG Hemoglobin ABG Oxyhemoglobin ABG Potassium ABG Glucose Oxyhemoglobin Carboxyhemoglobin Sodium Potassium Chloride Carbon Dioxide BUN Creatinine Glucose POC Glucose 135 H 136 H Calcium Ferritin Total Bilirubin Alkaline Phosphatase Lactate Dehydrogenase Total Creatine Kinase CK-MB (CK-2) Rel Index Troponin T C-Reactive Protein Total Protein Albumin Prealbumin LDL Cholesterol Direct HDL Cholesterol Arterial Blood Glucose Arterial Blood Ionized Calcium Urine WBC (Auto) Chest x-ray: other (none today) Allied health notes reviewed: nursing
[2020-05-12] MEDS: ENOXAPARIN 40 MG/0.4 ML INJ SUB-Q SCH (22:27)
[2020-05-12] MEDS: SENNOSIDES 8.6 MG TAB PO SCH (22:28)
[2020-05-12] MEDS: ZOLPIDEM 5 MG TAB PO PRN (22:29)
[2020-05-13] MEDS: MORPHINE 2 MG/1 ML INJ IV PRN ×3 (03:24→21:59)
[2020-05-13] MEDS: ALPRAZolam 0.5 MG TAB PO PRN ×3 (03:24→22:18)
[2020-05-13] MEDS: D5W/0.9% NACL 1,000 ML IV SCH (03:36)
--- NOTE | 2020-05-13 08:51 | Progress Note ---
Assessment and Plan Assessment and plan: --Acute hypoxic hypercapnic respiratory failure; Intubated on mechanical ventilation. Etiology secondary to sepsis, ALS, multifocal pneumonia (Covid negative). S/p trach placement 03/07/20 --Status post cardiac arrest on 02/25, cardiac hernandez now stable --Dysphagia, status post PEG placement for tube feeding --ALS; Chronic Continue to provide supportive care --Elevated D-dimers; CTA chest, lower extremity venous Doppler both are negative Lovenox for DVT prophylaxis --Bilateral pneumonia; probably community-acquired Completed treatment ID recommendations appreciated --Sepsis secondary to pneumonia s/p empiric antibiotic --Elevated troponin; Serial cardiac enzymes, serial EKGs Echocardiogram, cardiology consult if needed --Hypernatremia Trend sodium Free water via feeding tube --Abdominal distention due to bladder outlet obstruction, resolved CT abdomen showed bladder outlet obstruction, urology consulted s/p drake placement by urology on 03/09 --Hypotension possibly from septic shock and bladder outlet obstruction improved following placing drake --Hypernatremia due to hypovolumia, resolved free water with TF --Constipation; Patient already received Dulcolax suppository and Colace Received milk of magnesia, with relief --DVT prophylaxis; Lovenox Brief history: 59-year-old male patient with significant past medical history of ALS, presented to ED with worsening shortness of breath since 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 Patient was on a trilogy machine for breathing 18/11. EMS arrived, patient had O2 sats in the 80s. EMS attempted to place patient on their CPAP machine, however patient did not tolerate. Patient was admitted to the ICU with diagnosis of acute hypoxic respiratory failure and placed on BiPAP. Patient initially tolerated but later deteriorated with respiratory status. CTA chest showed no PE but significant for bilateral pneumonia. Doppler ultrasound also negative for DVT. COVID-19 test ordered and negative. Due to persistent hypoxia and asystolic/V. fib cardiac arrest, patient was intubated on 02/26/2020 at 1500. Patient now on mechanical ventilation in the ICU s/p trach placement and now unable to wean off from the mechanical ventilation. Patient now status post PEG placement for tube feeding. Patient most likely need long-term placement -LTAC versus SNF Daily course: 02/25/2020. CTA of the chest reveals no PE but does illustrate the bilateral pneumonia. Doppler ultrasound also negative for DVT. Blood cultures are pending. Await COVID-19 testing. Patient currently requiring BiPAP IPAP 24/EPAP 6 with FiO2 of 25%. Continue O2 and BiPAP as clinically indicated. ID and pulmonary consulted. 02/26/2020. Blood cultures are negative x48 hours and Covid testing negative as well. Continue antibiotics per ID recommendations for community-acquired bilateral pneumonia. Cardiology consultation for elevated troponin. Check echocardiogram. 02/27/2020. Events of yesterday noted with asystole following V. fib arrest. Patient currently on AC mode rate 20, tidal volume 400, FiO2 50% and a PEEP of 6. Follow-up echocardiogram for elevated troponin. Cardiology suspects NSTEMI Type 2 in the setting of acute resp failure. Chest CTA and BLE Dopplers neg. we will discontinue Decadron given the Covid PCR is negative. 02/28/2020. I spoke with the sister Felisa Eli who is the power of criminal attorney regarding advanced directives and she instructed me that she would like to continue with aggressive care at this time. I informed her of the guarded prognosis and high mortality/morbidity and she voiced understanding. Patient currently with AC mode ventilation rate 18, tidal volume 400, FiO2 40% and a PEEP of 6. Continue antibiotics for pneumonia. ID previously consulted. Also consult neurology with regards to ALS. 02/29/2020; patient is intubated and on CPAP patient is alert and oriented. Patient has ALS. Dr. Álvarez spoke with his sister and she wants aggressive care. Continue antibiotics for pneumonia. Neurology consulted for ALS. Prognosis poor 03/01/2020; patient is intubated and on CPAP, patient is alert and oriented. I spoke with his 2 sisters about the management plan. 03/02/2020; patient is intubated and on CPAP. Patient was alert and oriented. I spoke with Dr. mohr and he thinks patient may need mechanical ventilation, likely his disease progressed. Dr. Flowers did debridement this morning. 03/03/2020; patient is intubated and on CPAP, patient was on trilogy and BiPAP at home. Patient has ALS. on spontaneous breathing trial. Patient is alert and oriented but quadriplegic. Patient has severe bilateral pneumonia and is on cefepime and Vanco, ID is following. Patient has sacral decubitus ulcer and debridement was done by Dr. Flowers and there is no osteomyelitis. 03/05. Patient still on broad-spectrum antibiotics. Status post sacral decubitus ulcer debridements-no osteomyelitis. Patient is on AC 25/400/30% PEEP 5. No blood gas results today. 03/06. Plan for tracheostomy by surgery. Still remains intubated. Labs review ed-sodium 150. Started on free water 200 every 8hr. trend sodium. 03/07: s/p trach placement today, patient placed back on mechanical ventilation with trach. Plan to resume tube feeding with NG tube. Continue to monitor vitals, monitor BMP. 03/08: Patient noted to have distended abdomen with low urinary output. Obtain bladder scan rule out urine retention, UA and urine culture, continue to follow clinically. 03/09: Patient noted to have low blood pressure with SBP as low as 70s. Ordered for 500 mils normal saline bolus. CT abdomen showed bladder outlet obstruction, urology consulted. 03/10: placed on drake by urology o/n, improved urine outpt. cont to monitor BMP. resuded TF - cont free water with TF. wean off from vent as tolerated. 03/11: Vitals stable. cont TF, wean off from vent as tolerated. start on 1/2 NS for hypernatremia - follow BMP 03/12: wean off vent as tolerated, plan for speech eval, cont Tf for now, cont iv fluid 03/13: unable to wean off from vent, unable to do speech therapy eval. will need PEG tube, cont supportive care for now, cont NG tube feeding 03/14: consulted GI for PEg placemnet, cont supportive care. remains on vent at night 03/15: Discussed with GI, plan for PEG tube placement possibly tomorrow. Continue supportive care and wean off from vent as tolerated. Hold Lovenox dose tonight. 03/16: family didnot consent for PEG placement yesterday. I spoke with the daughter today and she is now agreeable for PEG tube. I explained the necessity of the procedure with RN to the patient also and he nodded started on tube feeding, for the procedure. will cont supportive care. planned for PEG tube placement tomorrow. 03/17: s/p PEG placement today, patient tolerated well, cont supportive care 03/18: Started on tube feeding with new PEG tube, continue to wean off vent as tolerated 03/19: cont to monitor with supportive care, wean off vent as tolerated 03/20: Continue to wean off vent as tolerated -but failing weaning trial. Still requiring vent support at night. Currently on PEG tube for tube feed. 03/21. Pt with PSV trials with FiO@ 30%, PEEP 6, PS 10. Currently on PEG tube for tube feed. 03/22/2020. Continue PSV trials per pulmonary. Continue bronchodilators. Patient tolerating tube feedings. Continue Robinul for secretion control. 03/23/2020. Continue PSV trials per pulmonary. Continue bronchodilators. Continue Scopolamine and Robinul for secretion control. Trach care/airway management. Mobility protocols for pressure ulcer prophylaxis. LTAC evaluation per case management 03/24/2020. Continue PSV trials with current settings pressure support 10, PEEP 6 and FiO2 30%. Continue bronchodilators/nebulizer. Continue Scopolamine and Robinul for secretion control. Trach care/airway management. Mobility protocols for pressure ulcer prophylaxis. LTAC evaluation per case management 03/25/2020. Pulmonary to proceed with T-piece trials today. Continue bronchodilators/nebulizer. Continue Scopolamine and Robinul for secretion control. Trach care/airway management. Mobility protocols for pressure ulcer prophylaxis. 03/26/2020. Patient currently with PSV 10/6 at FiO2 of 30%. Continue weaning and T-piece trials per protocol. Continue bronchodilators/nebulizer. Continue Scopolamine and Robinul for secretion control. Trach care/airway management. Mobility protocols for pressure ulcer prophylaxis. Continue tube feeding with aspiration precautions. 03/27/2020. Patient currently with PSV 10/6 at FiO2 of 30%. Continue weaning and T-piece trials per protocol. Continue bronchodilators/nebulizer. Continue Scopolamine and Robinul for secretion control. Trach care/airway management. Mobility protocols for pressure ulcer prophylaxis. Continue tube feeding with aspiration precautions. 03/28. Had temp 100.7F. He has been off antibiotics. Will send blood culture, ua, urine culture and chest xray. Had chest pain overnight and trop was elevated as well. Cardiology to evaluate 03/29. Has back pain due to position. He mentions his chest pain is positional. Has no other complaints. Still on mechanical ventilation 03/30. No chest pain today. Labs reviewed. Discussed chest pain with cardiology and team advised no further work up at this time. Can follow up with cardiology in the office after hospitalization 03/31. Lidocaine patch for lower back pain. 04/01. Discharge planning underway. CM notes reviewed. Discussed with daughter 04/02. CM trying to arrange discharge. Continue PSV trials. Discussed with patients significant other 04/04/2020; CM is working for discharge arrangement. Continue PSV trials. 04/05/2020; patient was seen and evaluated this morning and no change from baseline. Continue with PSV trials. Follow with hip hop dance instructor for discharge planning. 04/06/2020;patient was seen and evaluated this morning and no change from baseline. Continue with PSV trials. Follow with hip hop dance instructor for discharge planning. 04/07/2020; patient was seen and evaluated this morning and no change from baseline. Continue with PSV trials. Follow with hip hop dance instructor for discharge planning. 04/08/2020; patient is vent dependent. Discharge is per hip hop dance instructor. 04/09/2020 patient is vent dependent, possible LTAC placement 04/10/2020; tracheostomy on vent, vent dependent pending LTAC placement 04/11/2020; clinically no change, tracheostomy on ventilatory support, wean as tolerated, awaiting placement 04/12/2020; remains on ventilatory support, unable to wean, patient wants to see a speech therapist for sound box However we cannot try that as long as he is on ventilatory support, once he is weaned off vent We will consult speech therapist, plan of care reviewed with the patient and his nurse 04/14/2020; clinically no change, on ventilatory support, complains of constipation, milk of magnesia Closely monitor the patient and adjust the management as needed 04/15/2020; patient has some oral thrush on the tongue, will give Magic mouthwash/nystatin swish and spit Wean off vent as tolerated 04/16 patient is alert and oriented, unable to comprehend what he is trying to tell but appears to complain of some pain, no acute events overnight, all int erdisciplinary notes reviewed. Waiting for LTAC versus [facility] facility placement 04/17/2020. Continue supportive care with mechanical ventilation. Patient currently on AC mode rate 10, tidal volume 400 FiO2 30% with a PEEP of 6. Discharge planning per case management. 04/18/2020. Patient remains on mechanical ventilation AC mode rate 10, tidal volume 400, FiO2 30% and PEEP of 6. Continue spontaneous breathing trials as tolerated. Previously, patient was considered for discharge home with skilled staff providing care for 12 hours 7 days/week. Continue discussed with case management discharge planning. 04/19/20. Patient remains on mechanical ventilation AC mode rate 10, tidal volume 400, FiO2 30% and PEEP of 6. Continue spontaneous breathing trials as tolerated. 04/20/2020. Patient remains on mechanical ventilation AC mode rate 10, tidal volume 400, FiO2 30% and PEEP of 6. Continue spontaneous breathing trials as tolerated. 04/21/2020. Patient remains on mechanical ventilation AC mode rate 10, tidal volume 400, FiO2 30% and PEEP of 6. Continue tracheostomy care, secretion control and airway management. Continue spontaneous breathing trials as tolerated. 04/22/2020. Patient remains on mechanical ventilation AC mode rate 10, tidal volume 400, FiO2 30% and PEEP of 6. Continue tracheostomy care, secretion control and airway management. Continue spontaneous breathing trials as tolerated. 04/23/2020. Patient on mechanical ventilation AC mode rate 18, tidal volume 450, FiO2 30% and PEEP of 6. Continue tracheostomy care, secretion control and airway management. Continue spontaneous breathing trials as tolerated. Continue Robinul and scopolamine for secretions. Continue baclofen. 04/24/2020. Patient remains on AC mode ventilation rate 10, tidal volume 400, FiO2 30% and PEEP of 6. Continue tracheostomy care, secretion control and airway management. Continue spontaneous breathing trials as tolerated. Continue Robinul and scopolamine for secretions. Continue baclofen. Continue Xanax for anxiety and Ambien for sleep. Await case management follow-up with regards to discharge planning. 04/25/2020. Patient remains on AC mode ventilation rate 10, tidal volume 400, FiO2 30% and PEEP of 6. Continue tracheostomy care, secretion control and airway management. Continue spontaneous breathing trials as tolerated. Continue Robinul and scopolamine for secretions. Continue baclofen. Continue Xanax for anxiety and Ambien for sleep. Await case management follow-up with regards to discharge planning. 04/26. Patient remains on AC mode ventilation rate 10, tidal volume 400, FiO2 30% and PEEP of 6. Continue tracheostomy care, secretion control and airway management. Continue spontaneous breathing trials as tolerated. Continue Robinul and scopolamine for secretions. Continue baclofen. Continue Xanax for anxiety and Ambien for sleep. Await case management follow-up with regards to discharge planning. 04/27. Patient remains on AC mode ventilation rate 10, tidal volume 400, FiO2 30% and PEEP of 6. Continue tracheostomy care, secretion control and airway management. Continue spontaneous breathing trials as tolerated. Continue Robinul and scopolamine for secretions. Continue baclofen. Continue Xanax for anxiety and Ambien for sleep. Await case management follow-up with regards to discharge planning. 04/28/20 no acute events overnight, remains vent dependent, cardiology and pulmonary notes reviewed 04/29 remains intubated via tracheostomy, no acute events 04/30 no acute events overnight, cardiology note reviewed, remains vent dependent, discharge planning per case management 05/01 stable. cardiology and pulmonary notes reviewed. D/C acu-checks 05/02 - todate: Clinically stable, CM working on placement. Continue supportive care. 05/12; patient is stable. Continue supportive care. 05/13; patient is stable and no change from baseline. Continue supportive care. Follow with case management for discharge planning. History Interval history: Patient was seen and evaluated this morning Patient is intubated, on trach Patient is awake Hospitalist Physical - Physical exam Narrative exam: Intubated, on a trach The patient appeared well nourished and normally developed. Vital signs as documented. Head exam is unremarkable. No scleral icterus . Neck is without jugular venous distension, thyromegaly, or carotid bruits. Lungs are clear to auscultation. Cardiac exam reveals regular rate and Rhythm. Abdominal exam reveals normal bowel sounds, nontender, no organomegaly. Extremities are nonedematous and both femoral and pedal pulses are normal. 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 - Constitutional Vitals: Temp Pulse Resp BP Pulse Ox 99.2 F 105 H 26 H 144/93 97 05/13/20 04:00 05/13/20 06:00 05/13/20 06:00 05/13/20 06:00 05/13/20 05:48 General appearance: Present: no acute distress, cachectic, disheveled, other (Cachectic, tracheostomy on vent) HEART Score - HEART Score Troponin: Troponin T 0.181 ng/mL (0.00-0.029) H* 04/24/20 05:28 Results - Labs CBC & Chem 7: 05/07/20 04:43 05/09/20 16:06 Labs: Laboratory Last Values WBC 10.1 K/mm3 (4.5-11.0) 05/07/20 04:43 RBC 3.97 M/mm3 (3.65-5.03) 05/07/20 04:43 Hgb 10.1 gm/dl (11.8-15.2) L 05/07/20 04:43 Hct 31.9 % (35.5-45.6) L 05/07/20 04:43 MCV 81 fl (84-94) L 05/07/20 04:43 MCH 25 pg (28-32) L 05/07/20 04:43 MCHC 32 % (32-34) 05/07/20 04:43 RDW 17.6 % (13.2-15.2) H 05/07/20 04:43 Plt Count 506 K/mm3 (140-440) H 05/07/20 04:43 Lymph % (Auto) 17.3 % (13.4-35.0) 05/07/20 04:43 Addison % (Auto) 8.6 % (0.0-7.3) H 05/07/20 04:43 Eos % (Auto) 3.8 % (0.0-4.3) 05/07/20 04:43 Baso % (Auto) 0.9 % (0.0-1.8) 05/07/20 04:43 Lymph # (Auto) 1.7 K/mm3 (1.2-5.4) 05/07/20 04:43 Addison # (Auto) 0.9 K/mm3 (0.0-0.8) H 05/07/20 04:43 Eos # (Auto) 0.4 K/mm3 (0.0-0.4) 05/07/20 04:43 Baso # (Auto) 0.1 K/mm3 (0.0-0.1) 05/07/20 04:43 Add Manual Diff Complete 04/25/20 06:34 Total Counted 100 04/25/20 06:34 Seg Neutrophils % 69.4 % (40.0-70.0) 05/07/20 04:43 Seg Neuts % (Manual) 78.0 % (40.0-70.0) H 04/25/20 06:34 Band Neutrophils % 1.0 % 04/22/20 07:45 Lymphocytes % (Manual) 10.0 % (13.4-35.0) L 04/25/20 06:34 Reactive Lymphs % (Man) 1.0 % 04/22/20 07:45 Monocytes % (Manual) 9.0 % (0.0-7.3) H 04/25/20 06:34 Eosinophils % (Manual) 2.0 % (0.0-4.3) 04/25/20 06:34 Basophils % (Manual) 1.0 % (0.0-1.8) 04/25/20 06:34 Metamyelocytes % 3.0 % 04/12/20 09:07 Myelocytes % 0 % 03/28/20 10:28 Promyelocytes % 0 % 03/28/20 10:28 Blast Cells % 0 % 03/28/20 10:28 Nucleated RBC % Not Reportable 04/25/20 06:34 Seg Neutrophils # 7.0 K/mm3 (1.8-7.7) 05/07/20 04:43 Seg Neutrophils # Man 9.1 K/mm3 (1.8-7.7) H 04/25/20 06:34 Band Neutrophils # 0.0 K/mm3 04/25/20 06:34 Lymphocytes # (Manual) 1.2 K/mm3 (1.2-5.4) 04/25/20 06:34 Abs React Lymphs (Man) 0.0 K/mm3 04/25/20 06:34 Monocytes # (Manual) 1.1 K/mm3 (0.0-0.8) H 04/25/20 06:34 Eosinophils # (Manual) 0.2 K/mm3 (0.0-0.4) 04/25/20 06:34 Basophils # (Manual) 0.1 K/mm3 (0.0-0.1) 04/25/20 06:34 Metamyelocytes # 0.0 K/mm3 04/25/20 06:34 Myelocytes # 0.0 K/mm3 04/25/20 06:34 Promyelocytes # 0.0 K/mm3 04/25/20 06:34 Blast Cells # 0.0 K/mm3 04/25/20 06:34 WBC Morphology Not Reportable 04/25/20 06:34 Hypersegmented Neuts Not Reportable 04/25/20 06:34 Hyposegmented Neuts Not Reportable 04/25/20 06:34 Hypogranular Neuts Not Reportable 04/25/20 06:34 Smudge Cells Not Reportable 04/25/20 06:34 Toxic Granulation Not Reportable 04/25/20 06:34 Toxic Vacuolation Not Reportable 04/25/20 06:34 Dohle Bodies Not Reportable 04/25/20 06:34 Pelger-Huet Anomaly Not Reportable 04/25/20 06:34 Robert Rods Not Reportable 04/25/20 06:34 Platelet Estimate Consistent w auto 04/25/20 06:34 Clumped Platelets Not Reportable 04/25/20 06:34 Plt Clumps, EDTA Not Reportable 04/25/20 06:34 Large Platelets Not Reportable 04/25/20 06:34 Giant Platelets Not Reportable 04/25/20 06:34 Platelet Satelliting Not Reportable 04/25/20 06:34 Plt Morphology Comment Not Reportable 04/25/20 06:34 RBC Morphology Not Reportable 04/25/20 06:34 Dimorphic RBCs Not Reportable 04/25/20 06:34 Polychromasia Not Reportable 04/25/20 06:34 Hypochromasia 1+ 04/25/20 06:34 Poikilocytosis Not Reportable 04/25/20 06:34 Anisocytosis Few 04/25/20 06:34 Microcytosis Not Reportable 04/25/20 06:34 Macrocytosis Not Reportable 04/25/20 06:34 Spherocytes Not Reportable 04/25/20 06:34 Pappenheimer Bodies Not Reportable 04/25/20 06:34 Sickle Cells Not Reportable 04/25/20 06:34 Target Cells Not Reportable 04/25/20 06:34 Stomatocytes Few 03/17/20 04:40 Tear Drop Cells Not Reportable 04/25/20 06:34 Ovalocytes Not Reportable 04/25/20 06:34 Helmet Cells Not Reportable 04/25/20 06:34 Gregory-Hurstbourne Bodies Not Reportable 04/25/20 06:34 Lannon Rings Not Reportable 04/25/20 06:34 Riaz Cells Not Reportable 04/25/20 06:34 Bite Cells Not Reportable 04/25/20 06:34 Crenated Cell Not Reportable 04/25/20 06:34 Elliptocytes Not Reportable 04/25/20 06:34 Acanthocytes (Spur) Not Reportable 04/25/20 06:34 Rouleaux Not Reportable 04/25/20 06:34 Hemoglobin C Crystals Not Reportable 04/25/20 06:34 Schistocytes 1+ 04/25/20 06:34 Malaria parasites Not Reportable 04/25/20 06:34 Colton Bodies Not Reportable 04/25/20 06:34 Hem Pathologist Commnt No 04/25/20 06:34 PT 15.6 Sec. (12.2-14.9) H 02/24/20 09:19 INR 1.21 (0.87-1.13) H 02/24/20 09:19 APTT 25.4 Sec. (24.2-36.6) 02/24/20 09:19 D-Dimer 1311.96 ng/mlDDU (0-234) H 02/24/20 09:19 ABG pH 7.371 (7.320-7.450) 03/08/20 12:34 POC ABG pCO2 63.1 mmHg (32.0-48.0) H 03/08/20 12:34 ABG pCO2 60.1 mm Hg 03/06/20 04:34 POC ABG pO2 90.5 mmHg (83-108) 03/08/20 12:34 ABG pO2 88.6 mm Hg (80.0-90.0) 03/06/20 04:34 POC ABG HCO3 35.7 03/08/20 12:34 ABG HCO3 37.9 mmol/L (20.0-26.0) H 03/06/20 04:34 ABG O2 Saturation 97.0 % (95.0-99.0) 03/06/20 04:34 ABG O2 Content 14.3 (0.0-44) 03/06/20 04:34 POC ABG Base Excess 8.7 03/08/20 12:34 ABG Base Excess 11.4 mmol/L (-2.0-3.0) H 03/06/20 04:34 ABG Hemoglobin 10.9 (12.0-17.5) L 03/08/20 12:34 ABG Oxyhemoglobin 95.9 (94-98) 03/08/20 12:34 ABG Carboxyhemoglobin 1.7 % (0.0-5.0) 03/06/20 04:34 ABG Methemoglobin 0.3 (0.0-1.5) 03/08/20 12:34 ABG Sodium 143.6 mmol/L (136.0-145.0) 03/08/20 12:34 ABG Potassium 3.8 mmol/L (3.40-4.50) 03/08/20 12:34 ABG Chloride 102.0 mmol/L (98-107) 03/08/20 12:34 ABG Glucose 176 mg/dL (65-95) H 03/08/20 12:34 Oxyhemoglobin 94.7 % (95.0-99.0) L 03/06/20 04:34 Carboxyhemoglobin 0.7 (0.5-1.5) 03/08/20 12:34 FiO2 30 03/08/20 12:34 Sodium 136 mmol/L (137-145) L 05/09/20 16:06 Potassium 4.4 mmol/L (3.6-5.0) 05/09/20 16:06 Chloride 97.0 mmol/L (98-107) L 05/09/20 16:06 Carbon Dioxide 34 mmol/L (22-30) H 05/09/20 16:06 Anion Gap 9 mmol/L 05/09/20 16:06 BUN 14 mg/dL (9-20) 05/09/20 16:06 Creatinine < 0.2 mg/dL (0.8-1.3) L 05/09/20 16:06 Estimated GFR > 60 ml/min 05/09/20 16:06 BUN/Creatinine Ratio 70 % 05/09/20 16:06 Glucose 107 mg/dL (75-100) H 05/09/20 16:06 POC Glucose 131 mg/dL (70-105) H 05/13/20 05:36 Lactic Acid 1.00 mmol/L (0.7-2.0) 02/24/20 12:07 Calcium 9.0 mg/dL (8.4-10.2) 05/09/20 16:06 Phosphorus 3.30 mg/dL (2.5-4.5) 03/29/20 14:35 Magnesium 1.90 mg/dL (1.7-2.3) 04/12/20 09:07 Ferritin 1715.0 ng/mL (30.0-300.0) H 02/24/20 10:01 Total Bilirubin 0.20 mg/dL (0.1-1.2) 04/12/20 09:07 AST 15 units/L (5-40) 04/12/20 09:07 ALT 15 units/L (7-56) 04/12/20 09:07 Alkaline Phosphatase 62 units/L (35-129) 04/12/20 09:07 Lactate Dehydrogenase 303 units/L (91-180) H 02/24/20 09:19 Total Creatine Kinase 47 units/L (55-170) L 03/28/20 17:17 CK-MB (CK-2) 2.2 ng/mL (0.0-4.0) 03/28/20 17:17 CK-MB (CK-2) Rel Index 4.6 (0-4) H 03/28/20 17:17 Troponin T 0.181 ng/mL (0.00-0.029) H* 04/24/20 05:28 C-Reactive Protein 4.70 mg/dL (0.00-1.30) H 02/28/20 11:05 NT-Pro-B Natriuret Pep 48.30 pg/mL (0-900) 02/24/20 09:19 Total Protein 6.7 g/dL (6.3-8.2) 04/12/20 09:07 Albumin 2.7 g/dL (3.9-5) L 04/12/20 09:07 Albumin/Globulin Ratio 0.7 % 04/12/20 09:07 Prealbumin 0.090 g/L (0.200-0.400) L 02/28/20 12:54 Triglycerides 62 mg/dL (2-149) 04/23/20 04:28 Cholesterol 104 mg/dL (50-199) 04/23/20 04:28 LDL Cholesterol Direct 66 mg/dL (50-130) 04/23/20 04:28 HDL Cholesterol 29 mg/dL (40-59) L 04/23/20 04:28 Cholesterol/HDL Ratio 3.58 % 04/23/20 04:28 Procalcitonin < 0.05 ng/mL (<0.15) 03/28/20 17:12 Arterial Blood Glucose 176 mg/dL (65-95) H 03/08/20 12:34 Arterial Blood Ionized Calcium 4.5 mg/dL (4.6-5.3) L 03/08/20 12:34 Urine Color Yellow (Yellow) 03/28/20 11:36 Urine Turbidity Hazy (Clear) 03/28/20 11:36 Urine pH 5.0 (5.0-7.0) 03/28/20 11:36 Ur Specific Kirby 1.026 (1.003-1.030) 03/28/20 11:36 Urine Protein 100 mg/dl mg/dL (Negative) 03/28/20 11:36 Urine Glucose (UA) Neg mg/dL (Negative) 03/28/20 11:36 Urine Ketones Neg mg/dL (Negative) 03/28/20 11:36 Urine Blood Neg (Negative) 03/28/20 11:36 Urine Nitrite Neg (Negative) 03/28/20 11:36 Urine Bilirubin Neg (Negative) 03/28/20 11:36 Urine Urobilinogen 4.0 mg/dL (<2.0) 03/28/20 11:36 Ur Leukocyte Esterase Mod (Negative) 03/28/20 11:36 Urine WBC (Auto) 39.0 /HPF (0.0-6.0) H 03/28/20 11:36 Urine RBC (Auto) 16.0 /HPF (0.0-6.0) 03/28/20 11:36 U Epithel Cells (Auto) < 1.0 /HPF (0-13.0) 03/08/20 08:57 Urine Bacteria (Auto) 2+ /HPF (Negative) 03/28/20 11:36 Urine Mucus 3+ /HPF 03/28/20 11:36 Urine Yeast (Budding) 2+ /HPF 03/28/20 11:36 Vancomycin Trough 8.0 ug/mL (5.0-20.0) 03/04/20 08:59 Coronavirus (PCR) Negative (Negative) 02/25/20 09:03 - Diagnostic Impressions Diagnostic Impressions: Echocardiogram 02/26/20 10:41 Transthoracic Echocardiogram Indication: Elevated Trop BP: 116/75 HR: 85 Conclusions *Global left ventricular wall motion and contractility are within normal limits. *The estimated ejection fraction is 50-55%. *Abnormal left ventricular diastolic filling is observed, consistent with impaired relaxation. *There is no pericardial effusion. Findings Left Ventricle: The left ventricular chamber size is normal. Global left ventricular wall motion and contractility are within normal limits. Global left ventricular systolic function is normal. The estimated ejection fraction is 50-55%. Abnormal left ventricular diastolic filling is observed, consistent with impaired relaxation. Left Atrium: The left atrial chamber size is normal. Right Ventricle: The right ventricular cavity size is normal. Right Atrium: The right atrial cavity size is normal. Aortic Valve: Mild aortic leaflet calcification is visualized. There is no evidence of aortic regurgitation. Mitral Valve: The mitral valve leaflets are mildly thickened. There is no evidence of mitral regurgitation. Tricuspid Valve: The tricuspid valve leaflets are normal. There is trace tricuspid regurgitation. The right ventricular systolic pressure is calculated at 29 mmHg. Pulmonic Valve: The pulmonic valve is not well visualized. Pericardium: There is no pericardial effusion. Aorta: The aorta appears normal. Venous: The inferior vena cava is dilated. There is less than 50% respiratory change in the inferior vena cava dimension. Measurements Chambers 2D Name Value Normal Range IVSd (2D) 0.97 cm (0.6 - 1.1) LVPWd (2D) 0.93 cm (0.6 - 1.1) LVIDd (2D) 4 cm (3.7 - 5.6) LVIDs (2D) 2.73 cm (2 - 3.8) LV FS (2D) 31.67 % - EF Teichholz (2D) 60.23 % - Ao root diameter (2D) 3.51 cm (2 - 3.7) Volumes/Mass Name Value Normal Range LA ESV SP 4CH (A/L) 8.43 ml - LA ESV SP 2CH (A/L) 18.89 ml - LA ESV BP (A/L) 13.02 ml - LA ESV BP (A/L) index 8.8 ml/m2 - LA ESV SP 4CH (MOD) 7.22 ml - LA ESV SP 2CH (MOD) 18.15 ml - LA ESV BP (MOD) 11.47 ml - LA ESV BP (MOD) index 7.75 ml/m2 - Diastolic/Systolic Function Name Value Normal Range MV E-wave Vmax 0.51 m/sec - MV deceleration time 180.22 msec - MV A-wave Vmax 0.62 m/sec - MV E:A ratio 0.82 ratio - Aortic Valve Name Value Normal Range AV Vmax 1.17 m/sec - AV VTI 19.71 cm - AV peak gradient 5.44 mmHg - AV mean gradient 3.38 mmHg - LVOT diameter 2.26 cm - LVOT Vmax 0.89 m/sec - LVOT VTI 13.72 cm - LVOT peak gradient 3.17 mmHg - LVOT mean gradient 1.67 mmHg - SV LVOT 55.03 ml - SHARAD (continuity Vmax) 3.06 cm2 - SHARAD (continuity VTI) 2.79 cm2 - Tricuspid Valve Name Value Normal Range TR Vmax 2.3 m/sec - TR peak gradient 21 mmHg - RAP 8 mmHg - RVSP 29 mmHg - IVC diameter 2.59 cm (1.2 - 2.3) Pulmonic Valve/Qp:Qs Name Value Normal Range PV acceleration time 68.51 msec - Drake/IV: Voiding Method Indwelling Catheter IV Catheter Type [Right Wrist] INT / Saline Lock IV Catheter Type [Left Hand] INT / Saline Lock IV Catheter Type [Right Hand] Peripheral IV IV Catheter Type [Left Wrist] INT / Saline Lock IV Catheter Type [Right INT / Saline Lock Forearm] IV Catheter Type [Right Triple Lumen Cath Internal Jugular] IV Catheter Type [Left Forearm INT / Saline Lock ] IV Catheter Type [Right Triple Lumen Cath Femoral] IV Catheter Type [Right INT / Saline Lock Antecubital] Active Medications - Current Medications Current Medications: Generic Name Dose Route Start Last Admin Trade Name Freq PRN Reason Stop Dose Admin Acetaminophen 650 mg 02/24/20 15:13 05/11/20 12:07 Acetaminophen 325 Mg Tab PO 650 mg Q4H PRN Administration Pain, Mild (1-3) Albuterol 2.5 mg 02/24/20 15:13 Albuterol 2.5 Mg/3 Ml Nebu IH Q4HRT PRN Shortness Of Breath Alprazolam 0.5 mg 03/30/20 14:19 05/13/20 03:24 Alprazolam 0.5 Mg Tab PO 0.5 mg Q8H PRN Administration Anxiety Lipase/Protease/Amylase 1 each 02/26/20 11:16 Lipase 10,500/Protease 25,000/Amylase 43,750 (Units) Dr Larry FEEDTUBE PRN PRN For Clogged Feeding Tube Aspirin 81 mg 04/28/20 10:00 05/12/20 10:21 Aspirin Ec 81 Mg Tab PO 81 mg QDAY ALISA Administration Baclofen 10 mg 04/03/20 12:00 05/12/20 22:27 Baclofen 10 Mg Tab PO 10 mg BID ALISA Administration Bisacodyl 10 mg 03/12/20 18:00 05/03/20 06:15 Bisacodyl 10 Mg Rect Supp IA 10 mg QDAY PRN Administration Bowel Movement Diphenhydramine HCl 25 mg 05/09/20 20:32 05/12/20 10:45 Diphenhydramine 25 Mg/10 Ml Oral Liquid FEEDTUBE 25 mg Q6H PRN Administration Itching Docusate Sodium 100 mg 04/03/20 12:00 05/12/20 22:26 Docusate Sodium 100 Mg/10 Ml Oral Liqd FEEDTUBE 100 mg BID ALISA Administration Enoxaparin Sodium 40 mg 03/20/20 22:00 05/12/20 22:27 Enoxaparin 40 Mg/0.4 Ml Inj SUB-Q 40 mg QDAY@2200 ALIAS Administration Protocol Glycopyrrolate 2 mg 04/16/20 20:00 05/12/20 20:51 Glycopyrrolate 1 Mg Tab PO 2 mg TID ALISA Administration Dextrose/Sodium Chloride 1,000 mls @ 42 mls/hr 05/09/20 10:00 05/13/20 03:36 D5ns IV 42 mls/hr DIRECT ALISA Administration Lansoprazole 30 mg 02/28/20 10:00 05/12/20 10:22 Lansoprazole 30 Mg Solutab FEEDTUBE 30 mg QDAY ALISA Administration Lidocaine 1 each 03/31/20 10:00 05/12/20 10:20 Lidocaine 5% 1 Each Patch TD 1 each QDAY ALISA Administration Lidocaine HCl 15 ml 04/15/20 14:00 05/12/20 20:51 Magic Mouthwash 30ml PO 15 ml TID ALISA Administration Magnesium Hydroxide 30 ml 04/12/20 19:20 05/09/20 22:28 Magnesium Hydroxide (Mom) Oral Liqd Udc PO 30 ml Q4H PRN Administration Constipation Metoprolol Tartrate 12.5 mg 02/24/20 22:00 05/12/20 22:44 Metoprolol Tartrate 25 Mg Tab PO 12.5 mg BID LAISA Administration Morphine Sulfate 2 mg 02/29/20 16:42 05/13/20 03:24 Morphine 2 Mg/1 Ml Inj IV 2 mg Q4H PRN Administration Pain, Moderate (4-6) Nitroglycerin 0.4 mg 04/24/20 02:03 Nitroglycerin 0.4 Mg Tab Subl SL .Q5MIN PRN Chest Pain Pregabalin 150 mg 04/03/20 12:00 05/12/20 22:28 Pregabalin 75 Mg Cap PO 150 mg BID ALISA Administration Scopolamine 1 each 03/03/20 14:00 05/11/20 11:37 Scopolamine Transdermal Patch 72 Hr TD 1 each Q3D ALISA Administration Senna 17.2 mg 04/03/20 22:00 05/12/20 22:28 Sennosides 8.6 Mg Tab PO 17.2 mg QHS ALISA Administration Simple Syrup 15 ml 02/26/20 11:16 Simple Syrup 15 Ml FEEDTUBE PRN PRN Hypoglycemia Simple Syrup 30 ml 02/26/20 11:16 Simple Syrup 15 Ml FEEDTUBE PRN PRN Hypoglycemia Sodium Bicarbonate 325 mg 02/26/20 11:16 Sodium Bicarbonate 325 Mg Tab FEEDTUBE PRN PRN For Clogged Feeding Tube Sodium Hypochlorite 1 applic 03/31/20 13:00 05/12/20 22:26 Sodium Hypochlorite, Dakin's 1/2 Strength (0.25%) 473 Ml Topical Soln TP 1 applicatio BID ALISA Administration Tamsulosin HCl 0.4 mg 03/09/20 18:00 05/12/20 10:21 Tamsulosin 0.4 Mg Cap PO 0.4 mg QDAY ALISA Administration Tramadol HCl 50 mg 04/22/20 11:35 05/12/20 05:42 Tramadol 50 Mg Tab PO 50 mg Q6H PRN Administration Pain, Moderate (4-6) Zolpidem Tartrate 10 mg 03/31/20 20:15 05/12/20 22:29 Zolpidem 5 Mg Tab PO 10 mg QHS PRN Administration Sleep Nutrition/Malnutrition Assess - Dietary Evaluation Nutrition/Malnutrition Findings: Nutrition Notes Start: 02/26/20 10:40 Freq: Status: Active Protocol: Document 05/09/20 14:31 CW (Rec: 05/09/20 14:41 CW [email or web address]) Co-Sign 05/09/20 14:31 LP Nutrition Notes Initial or Follow up Reassessment Current Diagnosis Decubitus(Pressure Ulcer), Sepsis,Respiratory Failure Other Pertinent Diagnosis COVID-19 (-), ALS, pneumonia, Hip/buttock PU Current Diet Vital AF 1.2 at 75ml/hr (goal rate) Labs/Tests Reviewed Pertinent Medications Reviewed Height 6 ft Weight 68 kg [place] Body Weight (kg) 80.90 BMI 20.3 Weight Status Appropriate Subjective/Other Information FU for TF tolerance, vent status, wt. Pt remains on the vent with TF running at goal rate. Per RN, pt is tolerating TF. Percent of energy/protein needs met: 100%/100% Burn Absent Trauma Absent GI Symptoms None Skin Integrity/Comment Pressure Ulcer Stage 2 Current % PO Negligible Minimum of two criteria Yes Body Fat Depletion Mild depletion (non-severe) Muscle Mass Mild Depletion (non-severe) Reduced [employer] Strength Measurably Reduced (severe) #3 Nutrition Diagnosis Malnutrition Diagnosis Progress(for reassessment Continues documentation) #2 Nutrition Diagnosis Inadequate oral intake Diagnosis Progress(for reassessment Continues documentation) #1 Nutrition Diagnosis Increased nutrient needs ( specify in comment below) Diagnosis Progress(for reassessment Continues documentation) Is patient on ventilator? Yes Is Patient Ambulatory and/or Out of Bed No REE-([facility]-confined to bed) 1844.448 Kcal/Kg value to use for calculation 32 Approximate Energy Requirements Using 2176 kcal/Kg Calculation Used for Recommendations Kcal/kg Additional Notes Protein needs: 81-136 g (1.2-2 g/ kg ABW) Fluid: 1ml/kcal Nutrition Intervention Change Diet Order: Continue TF Nutrition Support: Vital AF 1.2 at 75ml/hr. Flush 150ml q4h Kcal 2,160 Protein (gm) 135 Fluid (mL) 1,460 Add Supplement/Snack (indicate name/kcal Will BID /protein ) Provides kCal: 190 Provides Protein (gm) 5 Goal #1 Meet at least 80% of energy and protein needs via TF Goal #2 Wound healing Goal #3 Continue TF tolerance Anticipated Discharge Needs: Unable to determine at this time Follow-Up By: 05/16/20 Additional Comments FU for stable TF, vent status, wt
[2020-05-13] MEDS: MAGIC MOUTHWASH 30ML PO SCH ×3 (09:42→22:16)
[2020-05-13] MEDS: LANSOPRAZOLE 30 MG SOLUTAB FEEDTUBE SCH (09:42)
[2020-05-13] MEDS: PREGABALIN 75 MG CAP PO SCH ×2 (09:42→22:17)
[2020-05-13] MEDS: DOCUSATE SODIUM 100 MG/10 ML ORAL LIQD FEEDTUBE SCH ×2 (09:42→22:17)
[2020-05-13] MEDS: METOPROLOL TARTRATE 25 MG TAB PO SCH ×2 (09:42→22:51)
[2020-05-13] MEDS: TAMSULOSIN 0.4 MG CAP PO SCH (09:42)
[2020-05-13] MEDS: BACLOFEN 10 MG TAB PO SCH ×2 (09:43→22:17)
[2020-05-13] MEDS: GLYCOPYRROLATE 1 MG TAB PO SCH ×3 (09:43→22:17)
[2020-05-13] MEDS: ASPIRIN EC 81 MG TAB PO SCH (09:43)
[2020-05-13] MEDS: LIDOCAINE 5% 1 EACH PATCH TD SCH (09:44)
[2020-05-13] MEDS: SODIUM HYPOCHLORITE, DAKIN'S 1/2 STRENGTH (0.25%) 473 ML TOPICAL SOLN TP SCH ×2 (09:44→22:48)
--- NOTE | 2020-05-13 13:00 | Progress Note ---
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 Respiratory Failure Severe Sepsis with Shock Bilateral Pneumonia (Possible aspiration) History of ALS on Trilogy Oropharyngeal Dysphagia PUI-COVID Acute toxic metabolic encephalopathy Elevated D-dimer Elevated troponin possibly type 2 ischemia - no new issues, discharge planning still ongoing for home ventilator - remains ventilator dependent; refusing SBT's at time and not tolerating when tried - continue care as below; - continue home meds re: chronic pain (Baclofen, Lyrica) - continue daily SBT's as tolerated; t-piece trial attempts as tolerated (PSV if fails) - repeat CXR prn +/- bronchoscopy for mucus plugging / large volume atelectasis - continue psychoactive meds for anxiolysis - continue Robinul & scopolamine for secretion control - prn electrolytes and optimize K+ & Mg 2+ for best respiratory muscle function - wound care per RN/WCN - wean supplemental oxygen for target O2 sat's > 90% acutely - bronchodilators with pulmonary hygiene per RT - VAP bundle addressed - continue lung protective strategies - continue bronchodilators with pulmonary hygiene per RT - wean per pulmonary driven protocols otherwise - sedation prn for target RASS 0 to -1 - s/p empiric antiinfectives per ID rec's (Rocephin and Zithromax) - s/p COVID-19 isolation (Airborne & Contact) - s/p Dexamethasone - enteral nutrition at goal rate as tolerated - accuchecks with glycemic control per SSI (While critically ill target blood glucose of 140-180 mg/dL; avoid hypoglycemia) - avoid nephrotoxins, renally dose all medications - avoid benzodiazepine's, reduce the possibility of delirium - prn analgesia per CPOT score - Maintenance of sleep-wake cycle, avoid delirium - aspiration precautions - G.I. & VTE prophylaxis - PT/OT/ROM exercises - mobility protocols for pressure ulcer prophylaxis - Monitor hemodynamics closely - continue other care per attending / other consultants - discharge planning ongoing concurrently .... Re-evaluate in am & prn CONDITION: CRITICAL PROGNOSIS: GUARDED CODE STATUS: FULL CODE The high probability of a clinically significant, sudden or life-threatening deterioration of the [respiratory, cardiovascular & neurologic] system(s) required my full and direct attention, intervention and personal management. The aggregate critical care time was [32] minutes without overlap. Time includes spent on; [x] Data Review and interpretation [x] Patient assessment and monitoring of vital signs [x] Documentation [x] Medication orders and management Subjective Date of service: 05/13/20 Principal diagnosis: Ac on Ch Hypercapnic & hypoxemic Resp Failure; Severe Sepsis; Jamar PNA; ALS Interval history: Patient is seen today for: Acute on Chronic Hypercapnic & hypoxemic Respiratory Failure; Severe Sepsis with Shock; Bilateral Pneumonia (Possible aspiration); History of ALS on Trilogy; PUI-COVID; Acute toxic metabolic encephalopathy Seen and examined at bedside; 24hour events reviewed; nursing and respiratory care staff consulted; no adverse overnight events reported to me; resting in bed; remains on MVS; no new issues; discharge planning ongoing; denies chest pains, N/V/F/C Objective Vital Signs - 12hr 05/13/20 05/13/20 05/13/20 02:00 03:00 03:24 Temperature Pulse Rate 104 H 121 H Pulse Rate [ From Monitor] Respiratory 24 30 H 30 H Rate Blood Pressure 156/99 152/90 O2 Sat by Pulse 95 98 Oximetry O2 Sat by Pulse Oximetry [ Assessment] 05/13/20 05/13/20 05/13/20 04:00 05:00 05:48 Temperature 99.2 F Pulse Rate 118 H 105 H 114 H Pulse Rate [ 117 H From Monitor] Respiratory 17 24 Rate Blood Pressure 147/100 154/95 154/95 O2 Sat by Pulse 91 97 97 Oximetry O2 Sat by Pulse 97 Oximetry [ Assessment] 05/13/20 05/13/20 05/13/20 06:00 09:42 10:20 Temperature Pulse Rate 105 H 118 H Pulse Rate [ From Monitor] Respiratory 26 H Rate Blood Pressure 144/93 169/100 169/100 O2 Sat by Pulse 98 Oximetry O2 Sat by Pulse Oximetry [ Assessment] 05/13/20 12:02 Temperature Pulse Rate 102 H Pulse Rate [ From Monitor] Respiratory 25 H Rate Blood Pressure 137/94 O2 Sat by Pulse 97 Oximetry O2 Sat by Pulse Oximetry [ Assessment] Constitutional: no acute distress, other (thin middle aged male with mildly increased respiratory effort at rest on MVS) Eyes: non-icteric ENT: oropharynx moist, other (S/P Tracheostomy) Neck: supple, no lymphadenopathy, no JVD Effort: mildly labored Ascultation: Bilateral: diminished breath sounds, rhonchi (scant in bases) Percussion: Bilateral: not dull Cardiovascular: regular rate and rhythm, other (S1,S2, no murmurs) Gastrointestinal: normoactive bowel sounds, soft, non-tender, non-distended Integumentary: normal, decubitus ulcer (sacral / gluteal) Extremities: no cyanosis, no edema, pulses normal, other (atrophic looking limbs) Neurologic: pupils equal and round, other (motor strength in extremities 1-2/5, awake, alert, mouths words to make needs known) Psychiatric: depressed CBC and BMP: 05/07/20 04:43 05/09/20 16:06 ABG, PT/INR, D-dimer: ABG ABG pH 7.371 (7.320-7.450) 03/08/20 12:34 POC ABG pCO2 63.1 mmHg (32.0-48.0) H 03/08/20 12:34 ABG pCO2 60.1 mm Hg 03/06/20 04:34 POC ABG pO2 90.5 mmHg (83-108) 03/08/20 12:34 ABG pO2 88.6 mm Hg (80.0-90.0) 03/06/20 04:34 POC ABG HCO3 35.7 03/08/20 12:34 ABG O2 Saturation 97.0 % (95.0-99.0) 03/06/20 04:34 PT/INR, D-dimer PT 15.6 Sec. (12.2-14.9) H 02/24/20 09:19 INR 1.21 (0.87-1.13) H 02/24/20 09:19 D-Dimer 1311.96 ng/mlDDU (0-234) H 02/24/20 09:19 Abnormal lab findings: Abnormal Labs 02/24/20 02/24/20 02/24/20 09:19 09:19 09:19 WBC 20.2 H RBC 5.05 H Hgb Hct MCV MCH RDW 15.3 H Plt Count Lymph % (Auto) [place] % (Auto) Lymph # (Auto) [place] # (Auto) Seg Neutrophils % Seg Neuts % (Manual) 86.0 H Lymphocytes % (Manual) 1.0 L Monocytes % (Manual) Basophils % (Manual) Seg Neutrophils # Seg Neutrophils # Man 17.4 H Lymphocytes # (Manual) 0.2 L Monocytes # (Manual) Eosinophils # (Manual) Basophils # (Manual) PT 15.6 H INR 1.21 H D-Dimer 1311.96 H ABG pH POC ABG pCO2 POC ABG pO2 ABG pO2 ABG HCO3 ABG O2 Saturation ABG Base Excess ABG Hemoglobin ABG Oxyhemoglobin ABG Potassium ABG Glucose Oxyhemoglobin Carboxyhemoglobin Sodium 135 L Potassium 3.2 L Chloride 92.2 L Carbon Dioxide BUN 6 L Creatinine < 0.2 L Glucose 124 H POC Glucose Calcium Ferritin Total Bilirubin 2.30 H Alkaline Phosphatase 132 H Lactate Dehydrogenase Total Creatine Kinase CK-MB (CK-2) Rel Index Troponin T 0.080 H C-Reactive Protein Total Protein Albumin 3.6 L Prealbumin LDL Cholesterol Direct 41 L HDL Cholesterol Arterial Blood Glucose Arterial Blood Ionized Calcium Urine WBC (Auto) 02/24/20 02/24/20 02/24/20 09:19 09:58 10:01 WBC RBC Hgb Hct MCV MCH RDW Plt Count Lymph % (Auto) [place] % (Auto) Lymph # (Auto) [place] # (Auto) Seg Neutrophils % Seg Neuts % (Manual) Lymphocytes % (Manual) Monocytes % (Manual) Basophils % (Manual) Seg Neutrophils # Seg Neutrophils # Man Lymphocytes # (Manual) Monocytes # (Manual) Eosinophils # (Manual) Basophils # (Manual) PT INR D-Dimer ABG pH 7.176 L* POC ABG pCO2 POC ABG pO2 ABG pO2 91.2 H ABG HCO3 ABG O2 Saturation ABG Base Excess -4.6 L ABG Hemoglobin ABG Oxyhemoglobin ABG Potassium ABG Glucose Oxyhemoglobin 92.6 L Carboxyhemoglobin Sodium Potassium Chloride Carbon Dioxide BUN Creatinine Glucose POC Glucose Calcium Ferritin 1715.0 H Total Bilirubin Alkaline Phosphatase Lactate Dehydrogenase 303 H Total Creatine Kinase CK-MB (CK-2) Rel Index Troponin T C-Reactive Protein 26.10 H Total Protein Albumin Prealbumin LDL Cholesterol Direct HDL Cholesterol Arterial Blood Glucose Arterial Blood Ionized Calcium Urine WBC (Auto) 02/24/20 02/24/20 02/24/20 11:52 13:45 19:35 WBC RBC Hgb Hct MCV MCH RDW Plt Count Lymph % (Auto) [place] % (Auto) Lymph # (Auto) [place] # (Auto) Seg Neutrophils % Seg Neuts % (Manual) Lymphocytes % (Manual) Monocytes % (Manual) Basophils % (Manual) Seg Neutrophils # Seg Neutrophils # Man Lymphocytes # (Manual) Monocytes # (Manual) Eosinophils # (Manual) Basophils # (Manual) PT INR D-Dimer ABG pH 7.051 L* 7.300 L POC ABG pCO2 POC ABG pO2 ABG pO2 94.7 H 75.1 L ABG HCO3 18.0 L ABG O2 Saturation 93.5 L ABG Base Excess -6.8 L -7.8 L ABG Hemoglobin 13.2 L 11.9 L ABG Oxyhemoglobin ABG Potassium ABG Glucose Oxyhemoglobin 91.0 L 92.7 L Carboxyhemoglobin Sodium Potassium Chloride Carbon Dioxide BUN Creatinine Glucose POC Glucose Calcium Ferritin Total Bilirubin Alkaline Phosphatase Lactate Dehydrogenase Total Creatine Kinase CK-MB (CK-2) Rel Index Troponin T 0.034 H D C-Reactive Protein Total Protein Albumin Prealbumin LDL Cholesterol Direct HDL Cholesterol Arterial Blood Glucose Arterial Blood Ionized Calcium Urine WBC (Auto) 02/25/20 02/25/20 02/25/20 04:00 04:00 12:26 WBC 22.9 H RBC Hgb Hct MCV 83 L MCH 27 L RDW Plt Count 468 H Lymph % (Auto) [place] % (Auto) Lymph # (Auto) [place] # (Auto) Seg Neutrophils % Seg Neuts % (Manual) 89.0 H Lymphocytes % (Manual) 7.0 L Monocytes % (Manual) Basophils % (Manual) Seg Neutrophils # Seg Neutrophils # Man 20.4 H Lymphocytes # (Manual) Monocytes # (Manual) Eosinophils # (Manual) Basophils # (Manual) PT INR D-Dimer ABG pH POC ABG pCO2 POC ABG pO2 ABG pO2 ABG HCO3 ABG O2 Saturation ABG Base Excess ABG Hemoglobin ABG Oxyhemoglobin ABG Potassium 2.6 L ABG Glucose 142 H Oxyhemoglobin Carboxyhemoglobin Sodium Potassium 3.2 L Chloride Carbon Dioxide 18 L BUN Creatinine 0.2 L Glucose 114 H POC Glucose Calcium Ferritin Total Bilirubin Alkaline Phosphatase Lactate Dehydrogenase Total Creatine Kinase CK-MB (CK-2) Rel Index Troponin T C-Reactive Protein Total Protein Albumin 3.5 L Prealbumin LDL Cholesterol Direct HDL Cholesterol Arterial Blood Glucose 142 H Arterial Blood Ionized Calcium Urine WBC (Auto) 02/26/20 02/26/20 02/26/20 15:58 17:00 23:43 WBC RBC Hgb Hct MCV MCH RDW Plt Count Lymph % (Auto) [place] % (Auto) Lymph # (Auto) [place] # (Auto) Seg Neutrophils % Seg Neuts % (Manual) Lymphocytes % (Manual) Monocytes % (Manual) Basophils % (Manual) Seg Neutrophils # Seg Neutrophils # Man Lymphocytes # (Manual) Monocytes # (Manual) Eosinophils # (Manual) Basophils # (Manual) PT INR D-Dimer ABG pH 7.502 H POC ABG pCO2 POC ABG pO2 213.6 H ABG pO2 ABG HCO3 ABG O2 Saturation ABG Base Excess ABG Hemoglobin ABG Oxyhemoglobin 99.2 H ABG Potassium 2.9 L ABG Glucose 160 H Oxyhemoglobin Carboxyhemoglobin 0.4 L Sodium Potassium Chloride Carbon Dioxide BUN Creatinine Glucose POC Glucose 189 H 120 H Calcium Ferritin Total Bilirubin Alkaline Phosphatase Lactate Dehydrogenase Total Creatine Kinase CK-MB (CK-2) Rel Index Troponin T C-Reactive Protein Total Protein Albumin Prealbumin LDL Cholesterol Direct HDL Cholesterol Arterial Blood Glucose 160 H Arterial Blood Ionized Calcium 4.5 L Urine WBC (Auto) 02/27/20 02/27/20 02/27/20 05:00 07:04 17:45 WBC RBC Hgb Hct MCV MCH RDW Plt Count Lymph % (Auto) [place] % (Auto) Lymph # (Auto) [place] # (Auto) Seg Neutrophils % Seg Neuts % (Manual) Lymphocytes % (Manual) Monocytes % (Manual) Basophils % (Manual) Seg Neutrophils # Seg Neutrophils # Man Lymphocytes # (Manual) Monocytes # (Manual) Eosinophils # (Manual) Basophils # (Manual) PT INR D-Dimer ABG pH 7.524 H POC ABG pCO2 POC ABG pO2 ABG pO2 ABG HCO3 ABG O2 Saturation ABG Base Excess ABG Hemoglobin ABG Oxyhemoglobin ABG Potassium 3.0 L ABG Glucose 143 H Oxyhemoglobin Carboxyhemoglobin Sodium Potassium Chloride Carbon Dioxide BUN Creatinine Glucose POC Glucose 154 H 175 H Calcium Ferritin Total Bilirubin Alkaline Phosphatase Lactate Dehydrogenase Total Creatine Kinase CK-MB (CK-2) Rel Index Troponin T C-Reactive Protein Total Protein Albumin Prealbumin LDL Cholesterol Direct HDL Cholesterol Arterial Blood Glucose 143 H Arterial Blood Ionized Calcium Urine WBC (Auto) 02/27/20 02/28/20 02/28/20 Unknown 00:21 04:15 WBC 18.7 H RBC Hgb Hct MCV MCH RDW Plt Count Lymph % (Auto) 8.7 L [place] % (Auto) Lymph # (Auto) [place] # (Auto) 1.2 H Seg Neutrophils % 84.6 H Seg Neuts % (Manual) Lymphocytes % (Manual) Monocytes % (Manual) Basophils % (Manual) Seg Neutrophils # 15.9 H Seg Neutrophils # Man Lymphocytes # (Manual) Monocytes # (Manual) Eosinophils # (Manual) Basophils # (Manual) PT INR D-Dimer ABG pH POC ABG pCO2 POC ABG pO2 ABG pO2 ABG HCO3 ABG O2 Saturation ABG Base Excess ABG Hemoglobin ABG Oxyhemoglobin ABG Potassium ABG Glucose Oxyhemoglobin Carboxyhemoglobin Sodium Potassium 2.9 L* Chloride Carbon Dioxide 33 H D BUN Creatinine < 0.2 L Glucose 157 H POC Glucose 134 H Calcium Ferritin Total Bilirubin Alkaline Phosphatase Lactate Dehydrogenase Total Creatine Kinase CK-MB (CK-2) Rel Index Troponin T C-Reactive Protein Total Protein Albumin Prealbumin LDL Cholesterol Direct HDL Cholesterol Arterial Blood Glucose Arterial Blood Ionized Calcium Urine WBC (Auto) 02/28/20 02/28/20 02/28/20 04:15 05:16 05:39 WBC RBC Hgb Hct MCV MCH RDW Plt Count Lymph % (Auto) [place] % (Auto) Lymph # (Auto) [place] # (Auto) Seg Neutrophils % Seg Neuts % (Manual) Lymphocytes % (Manual) Monocytes % (Manual) Basophils % (Manual) Seg Neutrophils # Seg Neutrophils # Man Lymphocytes # (Manual) Monocytes # (Manual) Eosinophils # (Manual) Basophils # (Manual) PT INR D-Dimer ABG pH POC ABG pCO2 POC ABG pO2 ABG pO2 142.9 H ABG HCO3 34.1 H ABG O2 Saturation ABG Base Excess 8.3 H ABG Hemoglobin ABG Oxyhemoglobin ABG Potassium ABG Glucose Oxyhemoglobin Carboxyhemoglobin Sodium 151 H Potassium Chloride Carbon Dioxide 32 H BUN Creatinine 0.2 L Glucose 167 H POC Glucose 138 H Calcium Ferritin Total Bilirubin Alkaline Phosphatase Lactate Dehydrogenase Total Creatine Kinase CK-MB (CK-2) Rel Index Troponin T C-Reactive Protein Total Protein Albumin Prealbumin LDL Cholesterol Direct HDL Cholesterol Arterial Blood Glucose Arterial Blood Ionized Calcium Urine WBC (Auto) 02/28/20 02/28/20 02/28/20 11:05 11:33 12:54 WBC RBC Hgb Hct MCV MCH RDW Plt Count Lymph % (Auto) [place] % (Auto) Lymph # (Auto) [place] # (Auto) Seg Neutrophils % Seg Neuts % (Manual) Lymphocytes % (Manual) Monocytes % (Manual) Basophils % (Manual) Seg Neutrophils # Seg Neutrophils # Man Lymphocytes # (Manual) Monocytes # (Manual) Eosinophils # (Manual) Basophils # (Manual) PT INR D-Dimer ABG pH POC ABG pCO2 POC ABG pO2 ABG pO2 ABG HCO3 ABG O2 Saturation ABG Base Excess ABG Hemoglobin ABG Oxyhemoglobin ABG Potassium ABG Glucose Oxyhemoglobin Carboxyhemoglobin Sodium Potassium Chloride Carbon Dioxide BUN Creatinine Glucose POC Glucose 160 H Calcium Ferritin Total Bilirubin Alkaline Phosphatase Lactate Dehydrogenase Total Creatine Kinase CK-MB (CK-2) Rel Index Troponin T C-Reactive Protein 4.70 H Total Protein Albumin Prealbumin 0.090 L LDL Cholesterol Direct HDL Cholesterol Arterial Blood Glucose Arterial Blood Ionized Calcium Urine WBC (Auto) 02/28/20 02/29/20 02/29/20 17:34 00:44 04:05 WBC 19.6 H RBC Hgb Hct MCV MCH 27 L RDW 15.4 H Plt Count Lymph % (Auto) [place] % (Auto) Lymph # (Auto) [place] # (Auto) Seg Neutrophils % Seg Neuts % (Manual) 86.0 H Lymphocytes % (Manual) 7.0 L Monocytes % (Manual) Basophils % (Manual) Seg Neutrophils # Seg Neutrophils # Man 16.9 H Lymphocytes # (Manual) Monocytes # (Manual) 1.2 H Eosinophils # (Manual) Basophils # (Manual) PT INR D-Dimer ABG pH POC ABG pCO2 POC ABG pO2 ABG pO2 ABG HCO3 ABG O2 Saturation ABG Base Excess ABG Hemoglobin ABG Oxyhemoglobin ABG Potassium ABG Glucose Oxyhemoglobin Carboxyhemoglobin Sodium Potassium Chloride Carbon Dioxide BUN Creatinine Glucose POC Glucose 136 H 156 H Calcium Ferritin Total Bilirubin Alkaline Phosphatase Lactate Dehydrogenase Total Creatine Kinase CK-MB (CK-2) Rel Index Troponin T C-Reactive Protein Total Protein Albumin Prealbumin LDL Cholesterol Direct HDL Cholesterol Arterial Blood Glucose Arterial Blood Ionized Calcium Urine WBC (Auto) 02/29/20 02/29/20 02/29/20 04:05 05:14 05:33 WBC RBC Hgb Hct MCV MCH RDW Plt Count Lymph % (Auto) [place] % (Auto) Lymph # (Auto) [place] # (Auto) Seg Neutrophils % Seg Neuts % (Manual) Lymphocytes % (Manual) Monocytes % (Manual) Basophils % (Manual) Seg Neutrophils # Seg Neutrophils # Man Lymphocytes # (Manual) Monocytes # (Manual) Eosinophils # (Manual) Basophils # (Manual) PT INR D-Dimer ABG pH POC ABG pCO2 54.3 H POC ABG pO2 124.8 H ABG pO2 ABG HCO3 ABG O2 Saturation ABG Base Excess ABG Hemoglobin ABG Oxyhemoglobin ABG Potassium ABG Glucose 185 H Oxyhemoglobin Carboxyhemoglobin Sodium 148 H Potassium Chloride Carbon Dioxide 33 H BUN Creatinine < 0.2 L Glucose 173 H POC Glucose 152 H Calcium Ferritin Total Bilirubin Alkaline Phosphatase Lactate Dehydrogenase Total Creatine Kinase CK-MB (CK-2) Rel Index Troponin T C-Reactive Protein Total Protein Albumin Prealbumin LDL Cholesterol Direct HDL Cholesterol Arterial Blood Glucose 185 H Arterial Blood Ionized Calcium Urine WBC (Auto) 03/01/20 03/01/20 03/01/20 00:00 03:45 04:33 WBC 23.1 H RBC Hgb Hct MCV MCH 27 L RDW 15.3 H Plt Count Lymph % (Auto) [place] % (Auto) Lymph # (Auto) [place] # (Auto) Seg Neutrophils % Seg Neuts % (Manual) 92.0 H Lymphocytes % (Manual) 6.0 L Monocytes % (Manual) Basophils % (Manual) Seg Neutrophils # Seg Neutrophils # Man 21.3 H Lymphocytes # (Manual) Monocytes # (Manual) Eosinophils # (Manual) 0.5 H Basophils # (Manual) PT INR D-Dimer ABG pH 7.492 H POC ABG pCO2 POC ABG pO2 ABG pO2 157.1 H ABG HCO3 32.3 H ABG O2 Saturation ABG Base Excess 8.1 H ABG Hemoglobin 13.2 L ABG Oxyhemoglobin ABG Potassium ABG Glucose Oxyhemoglobin Carboxyhemoglobin Sodium Potassium Chloride Carbon Dioxide BUN Creatinine Glucose POC Glucose 109 H Calcium Ferritin Total Bilirubin Alkaline Phosphatase Lactate Dehydrogenase Total Creatine Kinase CK-MB (CK-2) Rel Index Troponin T C-Reactive Protein Total Protein Albumin Prealbumin LDL Cholesterol Direct HDL Cholesterol Arterial Blood Glucose Arterial Blood Ionized Calcium Urine WBC (Auto) 03/01/20 03/01/20 03/01/20 04:33 05:29 12:32 WBC RBC Hgb Hct MCV MCH RDW Plt Count Lymph % (Auto) [place] % (Auto) Lymph # (Auto) [place] # (Auto) Seg Neutrophils % Seg Neuts % (Manual) Lymphocytes % (Manual) Monocytes % (Manual) Basophils % (Manual) Seg Neutrophils # Seg Neutrophils # Man Lymphocytes # (Manual) Monocytes # (Manual) Eosinophils # (Manual) Basophils # (Manual) PT INR D-Dimer ABG pH POC ABG pCO2 POC ABG pO2 ABG pO2 ABG HCO3 ABG O2 Saturation ABG Base Excess ABG Hemoglobin ABG Oxyhemoglobin ABG Potassium ABG Glucose Oxyhemoglobin Carboxyhemoglobin Sodium 146 H Potassium Chloride Carbon Dioxide 32 H BUN Creatinine < 0.2 L Glucose 120 H POC Glucose 120 H 128 H Calcium Ferritin Total Bilirubin Alkaline Phosphatase Lactate Dehydrogenase Total Creatine Kinase CK-MB (CK-2) Rel Index Troponin T C-Reactive Protein Total Protein Albumin Prealbumin LDL Cholesterol Direct HDL Cholesterol Arterial Blood Glucose Arterial Blood Ionized Calcium Urine WBC (Auto) 03/01/20 03/01/20 03/02/20 17:38 23:46 06:13 WBC RBC Hgb Hct MCV MCH RDW Plt Count Lymph % (Auto) [place] % (Auto) Lymph # (Auto) [place] # (Auto) Seg Neutrophils % Seg Neuts % (Manual) Lymphocytes % (Manual) Monocytes % (Manual) Basophils % (Manual) Seg Neutrophils # Seg Neutrophils # Man Lymphocytes # (Manual) Monocytes # (Manual) Eosinophils # (Manual) Basophils # (Manual) PT INR D-Dimer ABG pH POC ABG pCO2 POC ABG pO2 ABG pO2 ABG HCO3 ABG O2 Saturation ABG Base Excess ABG Hemoglobin ABG Oxyhemoglobin ABG Potassium ABG Glucose Oxyhemoglobin Carboxyhemoglobin Sodium Potassium Chloride Carbon Dioxide BUN Creatinine Glucose POC Glucose 114 H 121 H 120 H Calcium Ferritin Total Bilirubin Alkaline Phosphatase Lactate Dehydrogenase Total Creatine Kinase CK-MB (CK-2) Rel Index Troponin T C-Reactive Protein Total Protein Albumin Prealbumin LDL Cholesterol Direct HDL Cholesterol Arterial Blood Glucose Arterial Blood Ionized Calcium Urine WBC (Auto) 03/02/20 03/02/20 03/03/20 09:47 09:47 10:21 WBC 23.6 H RBC Hgb Hct MCV MCH RDW 15.3 H Plt Count 494 H Lymph % (Auto) [place] % (Auto) Lymph # (Auto) [place] # (Auto) Seg Neutrophils % Seg Neuts % (Manual) 85.0 H Lymphocytes % (Manual) 6.0 L Monocytes % (Manual) Basophils % (Manual) Seg Neutrophils # Seg Neutrophils # Man 20.1 H Lymphocytes # (Manual) Monocytes # (Manual) 1.7 H Eosinophils # (Manual) Basophils # (Manual) PT INR D-Dimer ABG pH POC ABG pCO2 POC ABG pO2 ABG pO2 ABG HCO3 ABG O2 Saturation ABG Base Excess ABG Hemoglobin ABG Oxyhemoglobin ABG Potassium 3.3 L ABG Glucose 158 H Oxyhemoglobin Carboxyhemoglobin Sodium Potassium Chloride Carbon Dioxide BUN Creatinine < 0.2 L Glucose 177 H POC Glucose Calcium Ferritin Total Bilirubin Alkaline Phosphatase Lactate Dehydrogenase Total Creatine Kinase CK-MB (CK-2) Rel Index Troponin T C-Reactive Protein Total Protein Albumin Prealbumin LDL Cholesterol Direct HDL Cholesterol Arterial Blood Glucose 158 H Arterial Blood Ionized Calcium Urine WBC (Auto) 03/03/20 03/04/20 03/04/20 21:30 00:00 12:23 WBC RBC Hgb Hct MCV MCH RDW Plt Count Lymph % (Auto) [place] % (Auto) Lymph # (Auto) [place] # (Auto) Seg Neutrophils % Seg Neuts % (Manual) Lymphocytes % (Manual) Monocytes % (Manual) Basophils % (Manual) Seg Neutrophils # Seg Neutrophils # Man Lymphocytes # (Manual) Monocytes # (Manual) Eosinophils # (Manual) Basophils # (Manual) PT INR D-Dimer ABG pH 7.328 L POC ABG pCO2 POC ABG pO2 ABG pO2 68.4 L ABG HCO3 35.0 H ABG O2 Saturation 93.9 L ABG Base Excess 6.8 H ABG Hemoglobin 12.7 L ABG Oxyhemoglobin ABG Potassium ABG Glucose Oxyhemoglobin 91.9 L Carboxyhemoglobin Sodium Potassium Chloride Carbon Dioxide BUN Creatinine Glucose POC Glucose 187 H 163 H Calcium Ferritin Total Bilirubin Alkaline Phosphatase Lactate Dehydrogenase Total Creatine Kinase CK-MB (CK-2) Rel Index Troponin T C-Reactive Protein Total Protein Albumin Prealbumin LDL Cholesterol Direct HDL Cholesterol Arterial Blood Glucose Arterial Blood Ionized Calcium Urine WBC (Auto) 03/04/20 03/04/20 03/05/20 18:15 21:30 06:02 WBC RBC Hgb Hct MCV MCH RDW Plt Count Lymph % (Auto) [place] % (Auto) Lymph # (Auto) [place] # (Auto) Seg Neutrophils % Seg Neuts % (Manual) Lymphocytes % (Manual) Monocytes % (Manual) Basophils % (Manual) Seg Neutrophils # Seg Neutrophils # Man Lymphocytes # (Manual) Monocytes # (Manual) Eosinophils # (Manual) Basophils # (Manual) PT INR D-Dimer ABG pH 7.297 L POC ABG pCO2 POC ABG pO2 ABG pO2 ABG HCO3 41.0 H ABG O2 Saturation ABG Base Excess 11.0 H ABG Hemoglobin 13.1 L ABG Oxyhemoglobin ABG Potassium ABG Glucose Oxyhemoglobin 94.5 L Carboxyhemoglobin Sodium Potassium Chloride Carbon Dioxide BUN Creatinine Glucose POC Glucose 192 H 127 H Calcium Ferritin Total Bilirubin Alkaline Phosphatase Lactate Dehydrogenase Total Creatine Kinase CK-MB (CK-2) Rel Index Troponin T C-Reactive Protein Total Protein Albumin Prealbumin LDL Cholesterol Direct HDL Cholesterol Arterial Blood Glucose Arterial Blood Ionized Calcium Urine WBC (Auto) 03/05/20 03/05/20 03/06/20 12:09 16:42 00:24 WBC RBC Hgb Hct MCV MCH RDW Plt Count Lymph % (Auto) [place] % (Auto) Lymph # (Auto) [place] # (Auto) Seg Neutrophils % Seg Neuts % (Manual) Lymphocytes % (Manual) Monocytes % (Manual) Basophils % (Manual) Seg Neutrophils # Seg Neutrophils # Man Lymphocytes # (Manual) Monocytes # (Manual) Eosinophils # (Manual) Basophils # (Manual) PT INR D-Dimer ABG pH POC ABG pCO2 POC ABG pO2 ABG pO2 ABG HCO3 ABG O2 Saturation ABG Base Excess ABG Hemoglobin ABG Oxyhemoglobin ABG Potassium ABG Glucose Oxyhemoglobin Carboxyhemoglobin Sodium Potassium Chloride Carbon Dioxide BUN Creatinine Glucose POC Glucose 147 H 114 H 134 H Calcium Ferritin Total Bilirubin Alkaline Phosphatase Lactate Dehydrogenase Total Creatine Kinase CK-MB (CK-2) Rel Index Troponin T C-Reactive Protein Total Protein Albumin Prealbumin LDL Cholesterol Direct HDL Cholesterol Arterial Blood Glucose Arterial Blood Ionized Calcium Urine WBC (Auto) 03/06/20 03/06/20 03/06/20 04:34 05:53 06:08 WBC 25.4 H RBC Hgb 10.5 L Hct 32.7 L MCV MCH 27 L RDW 15.3 H Plt Count 634 H Lymph % (Auto) [place] % (Auto) Lymph # (Auto) [place] # (Auto) Seg Neutrophils % Seg Neuts % (Manual) 88.0 H Lymphocytes % (Manual) 2.0 L Monocytes % (Manual) 8.0 H Basophils % (Manual) Seg Neutrophils # Seg Neutrophils # Man 22.4 H Lymphocytes # (Manual) 0.5 L Monocytes # (Manual) 2.0 H Eosinophils # (Manual) Basophils # (Manual) PT INR D-Dimer ABG pH POC ABG pCO2 POC ABG pO2 ABG pO2 ABG HCO3 37.9 H ABG O2 Saturation ABG Base Excess 11.4 H ABG Hemoglobin 10.6 L ABG Oxyhemoglobin ABG Potassium ABG Glucose Oxyhemoglobin 94.7 L Carboxyhemoglobin Sodium Potassium Chloride Carbon Dioxide BUN Creatinine Glucose POC Glucose 135 H Calcium Ferritin Total Bilirubin Alkaline Phosphatase Lactate Dehydrogenase Total Creatine Kinase CK-MB (CK-2) Rel Index Troponin T C-Reactive Protein Total Protein Albumin Prealbumin LDL Cholesterol Direct HDL Cholesterol Arterial Blood Glucose Arterial Blood Ionized Calcium Urine WBC (Auto) 03/06/20 03/06/20 03/06/20 06:08 12:19 19:10 WBC RBC Hgb Hct MCV MCH RDW Plt Count Lymph % (Auto) [place] % (Auto) Lymph # (Auto) [place] # (Auto) Seg Neutrophils % Seg Neuts % (Manual) Lymphocytes % (Manual) Monocytes % (Manual) Basophils % (Manual) Seg Neutrophils # Seg Neutrophils # Man Lymphocytes # (Manual) Monocytes # (Manual) Eosinophils # (Manual) Basophils # (Manual) PT INR D-Dimer ABG pH POC ABG pCO2 POC ABG pO2 ABG pO2 ABG HCO3 ABG O2 Saturation ABG Base Excess ABG Hemoglobin ABG Oxyhemoglobin ABG Potassium ABG Glucose Oxyhemoglobin Carboxyhemoglobin Sodium 150 H D Potassium Chloride Carbon Dioxide 39 H D BUN 23 H Creatinine < 0.2 L Glucose 144 H POC Glucose 169 H 152 H Calcium Ferritin Total Bilirubin Alkaline Phosphatase Lactate Dehydrogenase Total Creatine Kinase CK-MB (CK-2) Rel Index Troponin T C-Reactive Protein Total Protein Albumin 3.3 L Prealbumin LDL Cholesterol Direct HDL Cholesterol Arterial Blood Glucose Arterial Blood Ionized Calcium Urine WBC (Auto) 03/06/20 03/07/20 03/07/20 23:58 04:25 04:25 WBC 22.1 H RBC Hgb 10.9 L Hct 32.9 L MCV MCH RDW 15.5 H Plt Count 739 H Lymph % (Auto) 7.8 L [place] % (Auto) Lymph # (Auto) [place] # (Auto) 1.3 H Seg Neutrophils % 85.5 H Seg Neuts % (Manual) Lymphocytes % (Manual) Monocytes % (Manual) Basophils % (Manual) Seg Neutrophils # 18.9 H Seg Neutrophils # Man Lymphocytes # (Manual) Monocytes # (Manual) Eosinophils # (Manual) Basophils # (Manual) PT INR D-Dimer ABG pH POC ABG pCO2 POC ABG pO2 ABG pO2 ABG HCO3 ABG O2 Saturation ABG Base Excess ABG Hemoglobin ABG Oxyhemoglobin ABG Potassium ABG Glucose Oxyhemoglobin Carboxyhemoglobin Sodium 146 H Potassium Chloride Carbon Dioxide 37 H BUN Creatinine < 0.2 L Glucose 118 H POC Glucose 111 H Calcium Ferritin Total Bilirubin Alkaline Phosphatase Lactate Dehydrogenase Total Creatine Kinase CK-MB (CK-2) Rel Index Troponin T C-Reactive Protein Total Protein Albumin 3.7 L Prealbumin LDL Cholesterol Direct HDL Cholesterol Arterial Blood Glucose Arterial Blood Ionized Calcium Urine WBC (Auto) 03/07/20 03/07/20 03/07/20 05:20 17:45 23:32 WBC RBC Hgb Hct MCV MCH RDW Plt Count Lymph % (Auto) [place] % (Auto) Lymph # (Auto) [place] # (Auto) Seg Neutrophils % Seg Neuts % (Manual) Lymphocytes % (Manual) Monocytes % (Manual) Basophils % (Manual) Seg Neutrophils # Seg Neutrophils # Man Lymphocytes # (Manual) Monocytes # (Manual) Eosinophils # (Manual) Basophils # (Manual) PT INR D-Dimer ABG pH POC ABG pCO2 POC ABG pO2 ABG pO2 ABG HCO3 ABG O2 Saturation ABG Base Excess ABG Hemoglobin ABG Oxyhemoglobin ABG Potassium ABG Glucose Oxyhemoglobin Carboxyhemoglobin Sodium Potassium Chloride Carbon Dioxide BUN Creatinine Glucose POC Glucose 113 H 124 H 210 H Calcium Ferritin Total Bilirubin Alkaline Phosphatase Lactate Dehydrogenase Total Creatine Kinase CK-MB (CK-2) Rel Index Troponin T C-Reactive Protein Total Protein Albumin Prealbumin LDL Cholesterol Direct HDL Cholesterol Arterial Blood Glucose Arterial Blood Ionized Calcium Urine WBC (Auto) 03/08/20 03/08/20 03/08/20 05:35 06:43 06:43 WBC 28.9 H RBC 3.53 L Hgb 9.7 L Hct 30.3 L MCV MCH RDW 15.6 H Plt Count 578 H Lymph % (Auto) [place] % (Auto) Lymph # (Auto) [place] # (Auto) Seg Neutrophils % Seg Neuts % (Manual) 93.0 H Lymphocytes % (Manual) 4.0 L Monocytes % (Manual) Basophils % (Manual) Seg Neutrophils # Seg Neutrophils # Man 26.9 H Lymphocytes # (Manual) Monocytes # (Manual) Eosinophils # (Manual) Basophils # (Manual) PT INR D-Dimer ABG pH POC ABG pCO2 POC ABG pO2 ABG pO2 ABG HCO3 ABG O2 Saturation ABG Base Excess ABG Hemoglobin ABG Oxyhemoglobin ABG Potassium ABG Glucose Oxyhemoglobin Carboxyhemoglobin Sodium 146 H Potassium Chloride Carbon Dioxide 35 H BUN 34 H Creatinine 0.3 L D Glucose 125 H POC Glucose 147 H Calcium Ferritin Total Bilirubin Alkaline Phosphatase Lactate Dehydrogenase Total Creatine Kinase CK-MB (CK-2) Rel Index Troponin T C-Reactive Protein Total Protein 5.9 L Albumin 3.2 L Prealbumin LDL Cholesterol Direct HDL Cholesterol Arterial Blood Glucose Arterial Blood Ionized Calcium Urine WBC (Auto) 03/08/20 03/08/20 03/08/20 08:57 11:14 12:34 WBC RBC Hgb Hct MCV MCH RDW Plt Count Lymph % (Auto) [place] % (Auto) Lymph # (Auto) [place] # (Auto) Seg Neutrophils % Seg Neuts % (Manual) Lymphocytes % (Manual) Monocytes % (Manual) Basophils % (Manual) Seg Neutrophils # Seg Neutrophils # Man Lymphocytes # (Manual) Monocytes # (Manual) Eosinophils # (Manual) Basophils # (Manual) PT INR D-Dimer ABG pH POC ABG pCO2 63.1 H POC ABG pO2 ABG pO2 ABG HCO3 ABG O2 Saturation ABG Base Excess ABG Hemoglobin 10.9 L ABG Oxyhemoglobin ABG Potassium ABG Glucose 176 H Oxyhemoglobin Carboxyhemoglobin Sodium Potassium Chloride Carbon Dioxide BUN Creatinine Glucose POC Glucose 171 H Calcium Ferritin Total Bilirubin Alkaline Phosphatase Lactate Dehydrogenase Total Creatine Kinase CK-MB (CK-2) Rel Index Troponin T C-Reactive Protein Total Protein Albumin Prealbumin LDL Cholesterol Direct HDL Cholesterol Arterial Blood Glucose 176 H Arterial Blood Ionized Calcium 4.5 L Urine WBC (Auto) 10.0 H 03/08/20 03/08/20 03/09/20 18:02 23:43 05:49 WBC RBC Hgb Hct MCV MCH RDW Plt Count Lymph % (Auto) [place] % (Auto) Lymph # (Auto) [place] # (Auto) Seg Neutrophils % Seg Neuts % (Manual) Lymphocytes % (Manual) Monocytes % (Manual) Basophils % (Manual) Seg Neutrophils # Seg Neutrophils # Man Lymphocytes # (Manual) Monocytes # (Manual) Eosinophils # (Manual) Basophils # (Manual) PT INR D-Dimer ABG pH POC ABG pCO2 POC ABG pO2 ABG pO2 ABG HCO3 ABG O2 Saturation ABG Base Excess ABG Hemoglobin ABG Oxyhemoglobin ABG Potassium ABG Glucose Oxyhemoglobin Carboxyhemoglobin Sodium Potassium Chloride Carbon Dioxide BUN Creatinine Glucose POC Glucose 157 H 134 H 163 H Calcium Ferritin Total Bilirubin Alkaline Phosphatase Lactate Dehydrogenase Total Creatine Kinase CK-MB (CK-2) Rel Index Troponin T C-Reactive Protein Total Protein Albumin Prealbumin LDL Cholesterol Direct HDL Cholesterol Arterial Blood Glucose Arterial Blood Ionized Calcium Urine WBC (Auto) 03/09/20 03/09/20 03/09/20 08:35 08:35 12:11 WBC 23.4 H RBC 3.36 L Hgb 9.3 L Hct 28.8 L MCV MCH RDW 15.9 H Plt Count 521 H Lymph % (Auto) [place] % (Auto) Lymph # (Auto) [place] # (Auto) Seg Neutrophils % Seg Neuts % (Manual) 87.0 H Lymphocytes % (Manual) 4.0 L Monocytes % (Manual) 9.0 H Basophils % (Manual) Seg Neutrophils # Seg Neutrophils # Man 20.4 H Lymphocytes # (Manual) 0.9 L Monocytes # (Manual) 2.1 H Eosinophils # (Manual) Basophils # (Manual) PT INR D-Dimer ABG pH POC ABG pCO2 POC ABG pO2 ABG pO2 ABG HCO3 ABG O2 Saturation ABG Base Excess ABG Hemoglobin ABG Oxyhemoglobin ABG Potassium ABG Glucose Oxyhemoglobin Carboxyhemoglobin Sodium 147 H Potassium Chloride Carbon Dioxide 37 H BUN 63 H Creatinine Glucose 154 H POC Glucose 128 H Calcium Ferritin Total Bilirubin Alkaline Phosphatase Lactate Dehydrogenase Total Creatine Kinase CK-MB (CK-2) Rel Index Troponin T C-Reactive Protein Total Protein Albumin Prealbumin LDL Cholesterol Direct HDL Cholesterol Arterial Blood Glucose Arterial Blood Ionized Calcium Urine WBC (Auto) 03/09/20 03/10/20 03/10/20 17:51 00:25 05:41 WBC RBC Hgb Hct MCV MCH RDW Plt Count Lymph % (Auto) [place] % (Auto) Lymph # (Auto) [place] # (Auto) Seg Neutrophils % Seg Neuts % (Manual) Lymphocytes % (Manual) Monocytes % (Manual) Basophils % (Manual) Seg Neutrophils # Seg Neutrophils # Man Lymphocytes # (Manual) Monocytes # (Manual) Eosinophils # (Manual) Basophils # (Manual) PT INR D-Dimer ABG pH POC ABG pCO2 POC ABG pO2 ABG pO2 ABG HCO3 ABG O2 Saturation ABG Base Excess ABG Hemoglobin ABG Oxyhemoglobin ABG Potassium ABG Glucose Oxyhemoglobin Carboxyhemoglobin Sodium Potassium Chloride Carbon Dioxide BUN Creatinine Glucose POC Glucose 127 H 128 H 153 H Calcium Ferritin Total Bilirubin Alkaline Phosphatase Lactate Dehydrogenase Total Creatine Kinase CK-MB (CK-2) Rel Index Troponin T C-Reactive Protein Total Protein Albumin Prealbumin LDL Cholesterol Direct HDL Cholesterol Arterial Blood Glucose Arterial Blood Ionized Calcium Urine WBC (Auto) 03/10/20 03/10/20 03/10/20 06:14 06:14 12:02 WBC 18.3 H RBC 3.45 L Hgb 9.5 L Hct 29.5 L MCV MCH RDW 16.1 H Plt Count 494 H Lymph % (Auto) [place] % (Auto) Lymph # (Auto) [place] # (Auto) Seg Neutrophils % Seg Neuts % (Manual) 95.0 H Lymphocytes % (Manual) 1.0 L Monocytes % (Manual) Basophils % (Manual) Seg Neutrophils # Seg Neutrophils # Man 17.4 H Lymphocytes # (Manual) 0.2 L Monocytes # (Manual) Eosinophils # (Manual) Basophils # (Manual) PT INR D-Dimer ABG pH POC ABG pCO2 POC ABG pO2 ABG pO2 ABG HCO3 ABG O2 Saturation ABG Base Excess ABG Hemoglobin ABG Oxyhemoglobin ABG Potassium ABG Glucose Oxyhemoglobin Carboxyhemoglobin Sodium 149 H Potassium Chloride Carbon Dioxide 35 H BUN 34 H Creatinine 0.2 L D Glucose 177 H POC Glucose 151 H Calcium Ferritin Total Bilirubin Alkaline Phosphatase Lactate Dehydrogenase Total Creatine Kinase CK-MB (CK-2) Rel Index Troponin T C-Reactive Protein Total Protein Albumin Prealbumin LDL Cholesterol Direct HDL Cholesterol Arterial Blood Glucose Arterial Blood Ionized Calcium Urine WBC (Auto) 03/10/20 03/10/20 03/11/20 17:41 23:53 05:02 WBC RBC Hgb Hct MCV MCH RDW Plt Count Lymph % (Auto) [place] % (Auto) Lymph # (Auto) [place] # (Auto) Seg Neutrophils % Seg Neuts % (Manual) Lymphocytes % (Manual) Monocytes % (Manual) Basophils % (Manual) Seg Neutrophils # Seg Neutrophils # Man Lymphocytes # (Manual) Monocytes # (Manual) Eosinophils # (Manual) Basophils # (Manual) PT INR D-Dimer ABG pH POC ABG pCO2 POC ABG pO2 ABG pO2 ABG HCO3 ABG O2 Saturation ABG Base Excess ABG Hemoglobin ABG Oxyhemoglobin ABG Potassium ABG Glucose Oxyhemoglobin Carboxyhemoglobin Sodium Potassium Chloride Carbon Dioxide BUN Creatinine Glucose POC Glucose 168 H 142 H 146 H Calcium Ferritin Total Bilirubin Alkaline Phosphatase Lactate Dehydrogenase Total Creatine Kinase CK-MB (CK-2) Rel Index Troponin T C-Reactive Protein Total Protein Albumin Prealbumin LDL Cholesterol Direct HDL Cholesterol Arterial Blood Glucose Arterial Blood Ionized Calcium Urine WBC (Auto) 03/11/20 03/11/20 03/11/20 11:30 14:01 14:01 WBC 19.7 H RBC 3.04 L Hgb 8.7 L Hct 25.8 L MCV MCH RDW 15.6 H Plt Count Lymph % (Auto) [place] % (Auto) Lymph # (Auto) [place] # (Auto) Seg Neutrophils % Seg Neuts % (Manual) Lymphocytes % (Manual) Monocytes % (Manual) Basophils % (Manual) Seg Neutrophils # Seg Neutrophils # Man Lymphocytes # (Manual) Monocytes # (Manual) Eosinophils # (Manual) Basophils # (Manual) PT INR D-Dimer ABG pH POC ABG pCO2 POC ABG pO2 ABG pO2 ABG HCO3 ABG O2 Saturation ABG Base Excess ABG Hemoglobin ABG Oxyhemoglobin ABG Potassium ABG Glucose Oxyhemoglobin Carboxyhemoglobin Sodium 151 H Potassium Chloride Carbon Dioxide 37 H BUN Creatinine < 0.2 L Glucose 171 H POC Glucose 248 H Calcium Ferritin Total Bilirubin Alkaline Phosphatase Lactate Dehydrogenase Total Creatine Kinase CK-MB (CK-2) Rel Index Troponin T C-Reactive Protein Total Protein Albumin Prealbumin LDL Cholesterol Direct HDL Cholesterol Arterial Blood Glucose Arterial Blood Ionized Calcium Urine WBC (Auto) 03/11/20 03/11/20 03/12/20 17:09 23:52 04:39 WBC 19.9 H RBC 3.16 L Hgb 8.9 L Hct 27.5 L MCV MCH RDW 15.7 H Plt Count Lymph % (Auto) 6.8 L [place] % (Auto) Lymph # (Auto) [place] # (Auto) 1.2 H Seg Neutrophils % 86.0 H Seg Neuts % (Manual) Lymphocytes % (Manual) Monocytes % (Manual) Basophils % (Manual) Seg Neutrophils # 17.1 H Seg Neutrophils # Man Lymphocytes # (Manual) Monocytes # (Manual) Eosinophils # (Manual) Basophils # (Manual) PT INR D-Dimer ABG pH POC ABG pCO2 POC ABG pO2 ABG pO2 ABG HCO3 ABG O2 Saturation ABG Base Excess ABG Hemoglobin ABG Oxyhemoglobin ABG Potassium ABG Glucose Oxyhemoglobin Carboxyhemoglobin Sodium Potassium Chloride Carbon Dioxide BUN Creatinine Glucose POC Glucose 124 H 131 H Calcium Ferritin Total Bilirubin Alkaline Phosphatase Lactate Dehydrogenase Total Creatine Kinase CK-MB (CK-2) Rel Index Troponin T C-Reactive Protein Total Protein Albumin Prealbumin LDL Cholesterol Direct HDL Cholesterol Arterial Blood Glucose Arterial Blood Ionized Calcium Urine WBC (Auto) 03/12/20 03/12/20 03/12/20 04:39 05:28 11:34 WBC RBC Hgb Hct MCV MCH RDW Plt Count Lymph % (Auto) [place] % (Auto) Lymph # (Auto) [place] # (Auto) Seg Neutrophils % Seg Neuts % (Manual) Lymphocytes % (Manual) Monocytes % (Manual) Basophils % (Manual) Seg Neutrophils # Seg Neutrophils # Man Lymphocytes # (Manual) Monocytes # (Manual) Eosinophils # (Manual) Basophils # (Manual) PT INR D-Dimer ABG pH POC ABG pCO2 POC ABG pO2 ABG pO2 ABG HCO3 ABG O2 Saturation ABG Base Excess ABG Hemoglobin ABG Oxyhemoglobin ABG Potassium ABG Glucose Oxyhemoglobin Carboxyhemoglobin Sodium 147 H Potassium Chloride Carbon Dioxide 40 H BUN Creatinine < 0.2 L Glucose 175 H POC Glucose 167 H 144 H Calcium Ferritin Total Bilirubin Alkaline Phosphatase Lactate Dehydrogenase Total Creatine Kinase CK-MB (CK-2) Rel Index Troponin T C-Reactive Protein Total Protein Albumin Prealbumin LDL Cholesterol Direct HDL Cholesterol Arterial Blood Glucose Arterial Blood Ionized Calcium Urine WBC (Auto) 03/12/20 03/12/20 03/13/20 17:32 23:57 05:57 WBC RBC Hgb Hct MCV MCH RDW Plt Count Lymph % (Auto) [place] % (Auto) Lymph # (Auto) [place] # (Auto) Seg Neutrophils % Seg Neuts % (Manual) Lymphocytes % (Manual) Monocytes % (Manual) Basophils % (Manual) Seg Neutrophils # Seg Neutrophils # Man Lymphocytes # (Manual) Monocytes # (Manual) Eosinophils # (Manual) Basophils # (Manual) PT INR D-Dimer ABG pH POC ABG pCO2 POC ABG pO2 ABG pO2 ABG HCO3 ABG O2 Saturation ABG Base Excess ABG Hemoglobin ABG Oxyhemoglobin ABG Potassium ABG Glucose Oxyhemoglobin Carboxyhemoglobin Sodium Potassium Chloride Carbon Dioxide BUN Creatinine Glucose POC Glucose 141 H 137 H 161 H Calcium Ferritin Total Bilirubin Alkaline Phosphatase Lactate Dehydrogenase Total Creatine Kinase CK-MB (CK-2) Rel Index Troponin T C-Reactive Protein Total Protein Albumin Prealbumin LDL Cholesterol Direct HDL Cholesterol Arterial Blood Glucose Arterial Blood Ionized Calcium Urine WBC (Auto) 03/13/20 03/13/20 03/13/20 12:28 14:14 18:39 WBC RBC Hgb Hct MCV MCH RDW Plt Count Lymph % (Auto) [place] % (Auto) Lymph # (Auto) [place] # (Auto) Seg Neutrophils % Seg Neuts % (Manual) Lymphocytes % (Manual) Monocytes % (Manual) Basophils % (Manual) Seg Neutrophils # Seg Neutrophils # Man Lymphocytes # (Manual) Monocytes # (Manual) Eosinophils # (Manual) Basophils # (Manual) PT INR D-Dimer ABG pH POC ABG pCO2 POC ABG pO2 ABG pO2 ABG HCO3 ABG O2 Saturation ABG Base Excess ABG Hemoglobin ABG Oxyhemoglobin ABG Potassium ABG Glucose Oxyhemoglobin Carboxyhemoglobin Sodium Potassium Chloride Carbon Dioxide 39 H BUN Creatinine < 0.2 L Glucose 129 H POC Glucose 130 H 125 H Calcium Ferritin Total Bilirubin Alkaline Phosphatase Lactate Dehydrogenase Total Creatine Kinase CK-MB (CK-2) Rel Index Troponin T C-Reactive Protein Total Protein Albumin Prealbumin LDL Cholesterol Direct HDL Cholesterol Arterial Blood Glucose Arterial Blood Ionized Calcium Urine WBC (Auto) 03/13/20 03/14/20 03/14/20 23:33 05:24 08:07 WBC 16.8 H RBC 2.81 L Hgb 7.9 L Hct 23.9 L MCV MCH RDW 15.9 H Plt Count Lymph % (Auto) [place] % (Auto) Lymph # (Auto) [place] # (Auto) Seg Neutrophils % Seg Neuts % (Manual) 84.0 H Lymphocytes % (Manual) 10.0 L Monocytes % (Manual) Basophils % (Manual) Seg Neutrophils # Seg Neutrophils # Man 14.1 H Lymphocytes # (Manual) Monocytes # (Manual) Eosinophils # (Manual) Basophils # (Manual) PT INR D-Dimer ABG pH POC ABG pCO2 POC ABG pO2 ABG pO2 ABG HCO3 ABG O2 Saturation ABG Base Excess ABG Hemoglobin ABG Oxyhemoglobin ABG Potassium ABG Glucose Oxyhemoglobin Carboxyhemoglobin Sodium Potassium Chloride Carbon Dioxide BUN Creatinine Glucose POC Glucose 146 H 125 H Calcium Ferritin Total Bilirubin Alkaline Phosphatase Lactate Dehydrogenase Total Creatine Kinase CK-MB (CK-2) Rel Index Troponin T C-Reactive Protein Total Protein Albumin Prealbumin LDL Cholesterol Direct HDL Cholesterol Arterial Blood Glucose Arterial Blood Ionized Calcium Urine WBC (Auto) 03/14/20 03/14/2020 08:07 12:21 18:26 WBC RBC Hgb Hct MCV MCH RDW Plt Count Lymph % (Auto) [place] % (Auto) Lymph # (Auto) [place] # (Auto) Seg Neutrophils % Seg Neuts % (Manual) Lymphocytes % (Manual) Monocytes % (Manual) Basophils % (Manual) Seg Neutrophils # Seg Neutrophils # Man Lymphocytes # (Manual) Monocytes # (Manual) Eosinophils # (Manual) Basophils # (Manual) PT INR D-Dimer ABG pH POC ABG pCO2 POC ABG pO2 ABG pO2 ABG HCO3 ABG O2 Saturation ABG Base Excess ABG Hemoglobin ABG Oxyhemoglobin ABG Potassium ABG Glucose Oxyhemoglobin Carboxyhemoglobin Sodium Potassium Chloride 97.0 L Carbon Dioxide 37 H BUN Creatinine < 0.2 L Glucose 129 H POC Glucose 109 H 142 H Calcium 8.3 L Ferritin Total Bilirubin Alkaline Phosphatase Lactate Dehydrogenase Total Creatine Kinase CK-MB (CK-2) Rel Index Troponin T C-Reactive Protein Total Protein Albumin Prealbumin LDL Cholesterol Direct HDL Cholesterol Arterial Blood Glucose Arterial Blood Ionized Calcium Urine WBC (Auto) 03/14/20 03/15/20 03/15/20 23:57 05:46 08:06 WBC 19.7 H RBC 3.29 L Hgb 9.1 L Hct 28.0 L MCV MCH RDW 15.9 H Plt Count Lymph % (Auto) [place] % (Auto) Lymph # (Auto) [place] # (Auto) Seg Neutrophils % Seg Neuts % (Manual) Lymphocytes % (Manual) Monocytes % (Manual) Basophils % (Manual) Seg Neutrophils # Seg Neutrophils # Man Lymphocytes # (Manual) Monocytes # (Manual) Eosinophils # (Manual) Basophils # (Manual) PT INR D-Dimer ABG pH POC ABG pCO2 POC ABG pO2 ABG pO2 ABG HCO3 ABG O2 Saturation ABG Base Excess ABG Hemoglobin ABG Oxyhemoglobin ABG Potassium ABG Glucose Oxyhemoglobin Carboxyhemoglobin Sodium Potassium Chloride Carbon Dioxide BUN Creatinine Glucose POC Glucose 157 H 118 H Calcium Ferritin Total Bilirubin Alkaline Phosphatase Lactate Dehydrogenase Total Creatine Kinase CK-MB (CK-2) Rel Index Troponin T C-Reactive Protein Total Protein Albumin Prealbumin LDL Cholesterol Direct HDL Cholesterol Arterial Blood Glucose Arterial Blood Ionized Calcium Urine WBC (Auto) 03/15/20 03/15/20 03/15/20 08:06 12:44 18:09 WBC RBC Hgb Hct MCV MCH RDW Plt Count Lymph % (Auto) [place] % (Auto) Lymph # (Auto) [place] # (Auto) Seg Neutrophils % Seg Neuts % (Manual) Lymphocytes % (Manual) Monocytes % (Manual) Basophils % (Manual) Seg Neutrophils # Seg Neutrophils # Man Lymphocytes # (Manual) Monocytes # (Manual) Eosinophils # (Manual) Basophils # (Manual) PT INR D-Dimer ABG pH POC ABG pCO2 POC ABG pO2 ABG pO2 ABG HCO3 ABG O2 Saturation ABG Base Excess ABG Hemoglobin ABG Oxyhemoglobin ABG Potassium ABG Glucose Oxyhemoglobin Carboxyhemoglobin Sodium 136 L Potassium Chloride 93.6 L Carbon Dioxide 37 H BUN Creatinine < 0.2 L Glucose 132 H POC Glucose 151 H 164 H Calcium Ferritin Total Bilirubin Alkaline Phosphatase Lactate Dehydrogenase Total Creatine Kinase CK-MB (CK-2) Rel Index Troponin T C-Reactive Protein Total Protein Albumin Prealbumin LDL Cholesterol Direct HDL Cholesterol Arterial Blood Glucose Arterial Blood Ionized Calcium Urine WBC (Auto) 03/15/20 03/16/20 03/16/20 23:26 05:39 11:58 WBC RBC Hgb Hct MCV MCH RDW Plt Count Lymph % (Auto) [place] % (Auto) Lymph # (Auto) [place] # (Auto) Seg Neutrophils % Seg Neuts % (Manual) Lymphocytes % (Manual) Monocytes % (Manual) Basophils % (Manual) Seg Neutrophils # Seg Neutrophils # Man Lymphocytes # (Manual) Monocytes # (Manual) Eosinophils # (Manual) Basophils # (Manual) PT INR D-Dimer ABG pH POC ABG pCO2 POC ABG pO2 ABG pO2 ABG HCO3 ABG O2 Saturation ABG Base Excess ABG Hemoglobin ABG Oxyhemoglobin ABG Potassium ABG Glucose Oxyhemoglobin Carboxyhemoglobin Sodium Potassium Chloride Carbon Dioxide BUN Creatinine Glucose POC Glucose 136 H 116 H 109 H Calcium Ferritin Total Bilirubin Alkaline Phosphatase Lactate Dehydrogenase Total Creatine Kinase CK-MB (CK-2) Rel Index Troponin T C-Reactive Protein Total Protein Albumin Prealbumin LDL Cholesterol Direct HDL Cholesterol Arterial Blood Glucose Arterial Blood Ionized Calcium Urine WBC (Auto) 03/16/20 03/17/20 03/17/20 23:56 04:40 04:40 WBC 18.0 H RBC 3.33 L Hgb 9.5 L Hct 28.8 L MCV MCH RDW 16.4 H Plt Count 499 H Lymph % (Auto) [place] % (Auto) Lymph # (Auto) [place] # (Auto) Seg Neutrophils % Seg Neuts % (Manual) 82.0 H Lymphocytes % (Manual) 8.0 L Monocytes % (Manual) Basophils % (Manual) Seg Neutrophils # Seg Neutrophils # Man 14.8 H Lymphocytes # (Manual) Monocytes # (Manual) 1.3 H Eosinophils # (Manual) Basophils # (Manual) 0.2 H PT INR D-Dimer ABG pH POC ABG pCO2 POC ABG pO2 ABG pO2 ABG HCO3 ABG O2 Saturation ABG Base Excess ABG Hemoglobin ABG Oxyhemoglobin ABG Potassium ABG Glucose Oxyhemoglobin Carboxyhemoglobin Sodium Potassium Chloride 97.7 L Carbon Dioxide 32 H BUN Creatinine < 0.2 L Glucose 114 H POC Glucose 131 H Calcium Ferritin Total Bilirubin Alkaline Phosphatase Lactate Dehydrogenase Total Creatine Kinase CK-MB (CK-2) Rel Index Troponin T C-Reactive Protein Total Protein Albumin Prealbumin LDL Cholesterol Direct HDL Cholesterol Arterial Blood Glucose Arterial Blood Ionized Calcium Urine WBC (Auto) 03/18/20 03/18/20 03/18/20 00:21 05:21 11:55 WBC RBC Hgb Hct MCV MCH RDW Plt Count Lymph % (Auto) [place] % (Auto) Lymph # (Auto) [place] # (Auto) Seg Neutrophils % Seg Neuts % (Manual) Lymphocytes % (Manual) Monocytes % (Manual) Basophils % (Manual) Seg Neutrophils # Seg Neutrophils # Man Lymphocytes # (Manual) Monocytes # (Manual) Eosinophils # (Manual) Basophils # (Manual) PT INR D-Dimer ABG pH POC ABG pCO2 POC ABG pO2 ABG pO2 ABG HCO3 ABG O2 Saturation ABG Base Excess ABG Hemoglobin ABG Oxyhemoglobin ABG Potassium ABG Glucose Oxyhemoglobin Carboxyhemoglobin Sodium Potassium Chloride Carbon Dioxide BUN Creatinine Glucose POC Glucose 124 H 138 H 119 H Calcium Ferritin Total Bilirubin Alkaline Phosphatase Lactate Dehydrogenase Total Creatine Kinase CK-MB (CK-2) Rel Index Troponin T C-Reactive Protein Total Protein Albumin Prealbumin LDL Cholesterol Direct HDL Cholesterol Arterial Blood Glucose Arterial Blood Ionized Calcium Urine WBC (Auto) 03/18/20 03/18/20 03/19/20 17:03 23:58 05:24 WBC RBC Hgb Hct MCV MCH RDW Plt Count Lymph % (Auto) [place] % (Auto) Lymph # (Auto) [place] # (Auto) Seg Neutrophils % Seg Neuts % (Manual) Lymphocytes % (Manual) Monocytes % (Manual) Basophils % (Manual) Seg Neutrophils # Seg Neutrophils # Man Lymphocytes # (Manual) Monocytes # (Manual) Eosinophils # (Manual) Basophils # (Manual) PT INR D-Dimer ABG pH POC ABG pCO2 POC ABG pO2 ABG pO2 ABG HCO3 ABG O2 Saturation ABG Base Excess ABG Hemoglobin ABG Oxyhemoglobin ABG Potassium ABG Glucose Oxyhemoglobin Carboxyhemoglobin Sodium Potassium Chloride Carbon Dioxide BUN Creatinine Glucose POC Glucose 128 H 128 H 115 H Calcium Ferritin Total Bilirubin Alkaline Phosphatase Lactate Dehydrogenase Total Creatine Kinase CK-MB (CK-2) Rel Index Troponin T C-Reactive Protein Total Protein Albumin Prealbumin LDL Cholesterol Direct HDL Cholesterol Arterial Blood Glucose Arterial Blood Ionized Calcium Urine WBC (Auto) 03/19/20 03/19/20 03/19/20 08:05 08:05 11:56 WBC 16.8 H RBC 3.36 L Hgb 9.4 L Hct 28.8 L MCV MCH RDW 17.4 H Plt Count 567 H Lymph % (Auto) 7.8 L [place] % (Auto) Lymph # (Auto) [place] # (Auto) 1.2 H Seg Neutrophils % 83.5 H Seg Neuts % (Manual) Lymphocytes % (Manual) Monocytes % (Manual) Basophils % (Manual) Seg Neutrophils # 14.1 H Seg Neutrophils # Man Lymphocytes # (Manual) Monocytes # (Manual) Eosinophils # (Manual) Basophils # (Manual) PT INR D-Dimer ABG pH POC ABG pCO2 POC ABG pO2 ABG pO2 ABG HCO3 ABG O2 Saturation ABG Base Excess ABG Hemoglobin ABG Oxyhemoglobin ABG Potassium ABG Glucose Oxyhemoglobin Carboxyhemoglobin Sodium Potassium Chloride Carbon Dioxide 36 H BUN Creatinine < 0.2 L Glucose 135 H POC Glucose 128 H Calcium Ferritin Total Bilirubin Alkaline Phosphatase Lactate Dehydrogenase Total Creatine Kinase CK-MB (CK-2) Rel Index Troponin T C-Reactive Protein Total Protein Albumin Prealbumin LDL Cholesterol Direct HDL Cholesterol Arterial Blood Glucose Arterial Blood Ionized Calcium Urine WBC (Auto) 03/19/20 03/20/20 03/20/20 23:59 05:12 16:52 WBC RBC Hgb Hct MCV MCH RDW Plt Count Lymph % (Auto) [place] % (Auto) Lymph # (Auto) [place] # (Auto) Seg Neutrophils % Seg Neuts % (Manual) Lymphocytes % (Manual) Monocytes % (Manual) Basophils % (Manual) Seg Neutrophils # Seg Neutrophils # Man Lymphocytes # (Manual) Monocytes # (Manual) Eosinophils # (Manual) Basophils # (Manual) PT INR D-Dimer ABG pH POC ABG pCO2 POC ABG pO2 ABG pO2 ABG HCO3 ABG O2 Saturation ABG Base Excess ABG Hemoglobin ABG Oxyhemoglobin ABG Potassium ABG Glucose Oxyhemoglobin Carboxyhemoglobin Sodium Potassium Chloride Carbon Dioxide BUN Creatinine Glucose POC Glucose 120 H 131 H 124 H Calcium Ferritin Total Bilirubin Alkaline Phosphatase Lactate Dehydrogenase Total Creatine Kinase CK-MB (CK-2) Rel Index Troponin T C-Reactive Protein Total Protein Albumin Prealbumin LDL Cholesterol Direct HDL Cholesterol Arterial Blood Glucose Arterial Blood Ionized Calcium Urine WBC (Auto) 03/20/20 03/21/20 03/21/20 23:35 04:50 07:35 WBC 15.2 H RBC 3.39 L Hgb 9.4 L Hct 29.4 L MCV MCH RDW 17.6 H Plt Count 518 H Lymph % (Auto) [place] % (Auto) Lymph # (Auto) [place] # (Auto) Seg Neutrophils % Seg Neuts % (Manual) 83.0 H Lymphocytes % (Manual) 10.0 L Monocytes % (Manual) Basophils % (Manual) 2.0 H Seg Neutrophils # Seg Neutrophils # Man 12.6 H Lymphocytes # (Manual) Monocytes # (Manual) Eosinophils # (Manual) Basophils # (Manual) 0.3 H PT INR D-Dimer ABG pH POC ABG pCO2 POC ABG pO2 ABG pO2 ABG HCO3 ABG O2 Saturation ABG Base Excess ABG Hemoglobin ABG Oxyhemoglobin ABG Potassium ABG Glucose Oxyhemoglobin Carboxyhemoglobin Sodium Potassium Chloride Carbon Dioxide BUN Creatinine Glucose POC Glucose 125 H 127 H Calcium Ferritin Total Bilirubin Alkaline Phosphatase Lactate Dehydrogenase Total Creatine Kinase CK-MB (CK-2) Rel Index Troponin T C-Reactive Protein Total Protein Albumin Prealbumin LDL Cholesterol Direct HDL Cholesterol Arterial Blood Glucose Arterial Blood Ionized Calcium Urine WBC (Auto) 03/21/20 03/21/20 03/21/20 07:35 11:45 17:22 WBC RBC Hgb Hct MCV MCH RDW Plt Count Lymph % (Auto) [place] % (Auto) Lymph # (Auto) [place] # (Auto) Seg Neutrophils % Seg Neuts % (Manual) Lymphocytes % (Manual) Monocytes % (Manual) Basophils % (Manual) Seg Neutrophils # Seg Neutrophils # Man Lymphocytes # (Manual) Monocytes # (Manual) Eosinophils # (Manual) Basophils # (Manual) PT INR D-Dimer ABG pH POC ABG pCO2 POC ABG pO2 ABG pO2 ABG HCO3 ABG O2 Saturation ABG Base Excess ABG Hemoglobin ABG Oxyhemoglobin ABG Potassium ABG Glucose Oxyhemoglobin Carboxyhemoglobin Sodium 136 L Potassium Chloride 97.7 L Carbon Dioxide 32 H BUN Creatinine < 0.2 L Glucose 103 H POC Glucose 126 H 120 H Calcium Ferritin Total Bilirubin Alkaline Phosphatase Lactate Dehydrogenase Total Creatine Kinase CK-MB (CK-2) Rel Index Troponin T C-Reactive Protein Total Protein Albumin Prealbumin LDL Cholesterol Direct HDL Cholesterol Arterial Blood Glucose Arterial Blood Ionized Calcium Urine WBC (Auto) 03/22/20 03/22/20 03/22/20 05:09 06:34 06:34 WBC 17.5 H RBC 3.52 L Hgb 10.0 L Hct 30.7 L MCV MCH RDW 17.5 H Plt Count 499 H Lymph % (Auto) [place] % (Auto) Lymph # (Auto) [place] # (Auto) Seg Neutrophils % Seg Neuts % (Manual) 80.0 H Lymphocytes % (Manual) 10.0 L Monocytes % (Manual) Basophils % (Manual) Seg Neutrophils # Seg Neutrophils # Man 14.0 H Lymphocytes # (Manual) Monocytes # (Manual) Eosinophils # (Manual) Basophils # (Manual) PT INR D-Dimer ABG pH POC ABG pCO2 POC ABG pO2 ABG pO2 ABG HCO3 ABG O2 Saturation ABG Base Excess ABG Hemoglobin ABG Oxyhemoglobin ABG Potassium ABG Glucose Oxyhemoglobin Carboxyhemoglobin Sodium Potassium Chloride 96.6 L Carbon Dioxide 38 H BUN Creatinine < 0.2 L Glucose 139 H POC Glucose 125 H Calcium Ferritin Total Bilirubin Alkaline Phosphatase Lactate Dehydrogenase Total Creatine Kinase CK-MB (CK-2) Rel Index Troponin T C-Reactive Protein Total Protein Albumin Prealbumin LDL Cholesterol Direct HDL Cholesterol Arterial Blood Glucose Arterial Blood Ionized Calcium Urine WBC (Auto) 03/22/20 03/22/20 03/22/20 11:45 18:00 23:32 WBC RBC Hgb Hct MCV MCH RDW Plt Count Lymph % (Auto) [place] % (Auto) Lymph # (Auto) [place] # (Auto) Seg Neutrophils % Seg Neuts % (Manual) Lymphocytes % (Manual) Monocytes % (Manual) Basophils % (Manual) Seg Neutrophils # Seg Neutrophils # Man Lymphocytes # (Manual) Monocytes # (Manual) Eosinophils # (Manual) Basophils # (Manual) PT INR D-Dimer ABG pH POC ABG pCO2 POC ABG pO2 ABG pO2 ABG HCO3 ABG O2 Saturation ABG Base Excess ABG Hemoglobin ABG Oxyhemoglobin ABG Potassium ABG Glucose Oxyhemoglobin Carboxyhemoglobin Sodium Potassium Chloride Carbon Dioxide BUN Creatinine Glucose POC Glucose 135 H 133 H Calcium Ferritin Total Bilirubin Alkaline Phosphatase Lactate Dehydrogenase Total Creatine Kinase CK-MB (CK-2) Rel Index Troponin T 0.113 H* C-Reactive Protein Total Protein Albumin Prealbumin LDL Cholesterol Direct HDL Cholesterol Arterial Blood Glucose Arterial Blood Ionized Calcium Urine WBC (Auto) 03/23/20 03/23/20 03/23/20 01:47 06:21 07:57 WBC RBC Hgb Hct MCV MCH RDW Plt Count Lymph % (Auto) [place] % (Auto) Lymph # (Auto) [place] # (Auto) Seg Neutrophils % Seg Neuts % (Manual) Lymphocytes % (Manual) Monocytes % (Manual) Basophils % (Manual) Seg Neutrophils # Seg Neutrophils # Man Lymphocytes # (Manual) Monocytes # (Manual) Eosinophils # (Manual) Basophils # (Manual) PT INR D-Dimer ABG pH POC ABG pCO2 POC ABG pO2 ABG pO2 ABG HCO3 ABG O2 Saturation ABG Base Excess ABG Hemoglobin ABG Oxyhemoglobin ABG Potassium ABG Glucose Oxyhemoglobin Carboxyhemoglobin Sodium Potassium Chloride Carbon Dioxide BUN Creatinine Glucose POC Glucose 130 H Calcium Ferritin Total Bilirubin Alkaline Phosphatase Lactate Dehydrogenase Total Creatine Kinase CK-MB (CK-2) Rel Index Troponin T 0.143 H* D 0.105 H* D C-Reactive Protein Total Protein Albumin Prealbumin LDL Cholesterol Direct HDL Cholesterol Arterial Blood Glucose Arterial Blood Ionized Calcium Urine WBC (Auto) 03/23/20 03/24/20 03/24/20 12:02 05:33 07:15 WBC 18.0 H RBC Hgb 11.0 L Hct 34.0 L MCV MCH RDW 17.4 H Plt Count 520 H Lymph % (Auto) [place] % (Auto) Lymph # (Auto) [place] # (Auto) Seg Neutrophils % Seg Neuts % (Manual) 88.0 H Lymphocytes % (Manual) 7.0 L Monocytes % (Manual) Basophils % (Manual) Seg Neutrophils # Seg Neutrophils # Man 15.8 H Lymphocytes # (Manual) Monocytes # (Manual) Eosinophils # (Manual) Basophils # (Manual) PT INR D-Dimer ABG pH POC ABG pCO2 POC ABG pO2 ABG pO2 ABG HCO3 ABG O2 Saturation ABG Base Excess ABG Hemoglobin ABG Oxyhemoglobin ABG Potassium ABG Glucose Oxyhemoglobin Carboxyhemoglobin Sodium Potassium Chloride Carbon Dioxide BUN Creatinine Glucose POC Glucose 137 H 112 H Calcium Ferritin Total Bilirubin Alkaline Phosphatase Lactate Dehydrogenase Total Creatine Kinase CK-MB (CK-2) Rel Index Troponin T C-Reactive Protein Total Protein Albumin Prealbumin LDL Cholesterol Direct HDL Cholesterol Arterial Blood Glucose Arterial Blood Ionized Calcium Urine WBC (Auto) 03/24/20 03/24/20 03/24/20 07:15 11:22 23:30 WBC RBC Hgb Hct MCV MCH RDW Plt Count Lymph % (Auto) [place] % (Auto) Lymph # (Auto) [place] # (Auto) Seg Neutrophils % Seg Neuts % (Manual) Lymphocytes % (Manual) Monocytes % (Manual) Basophils % (Manual) Seg Neutrophils # Seg Neutrophils # Man Lymphocytes # (Manual) Monocytes # (Manual) Eosinophils # (Manual) Basophils # (Manual) PT INR D-Dimer ABG pH POC ABG pCO2 POC ABG pO2 ABG pO2 ABG HCO3 ABG O2 Saturation ABG Base Excess ABG Hemoglobin ABG Oxyhemoglobin ABG Potassium ABG Glucose Oxyhemoglobin Carboxyhemoglobin Sodium Potassium Chloride 96.6 L Carbon Dioxide 38 H BUN Creatinine < 0.2 L Glucose 141 H POC Glucose 130 H 120 H Calcium Ferritin Total Bilirubin Alkaline Phosphatase Lactate Dehydrogenase Total Creatine Kinase CK-MB (CK-2) Rel Index Troponin T C-Reactive Protein Total Protein Albumin Prealbumin LDL Cholesterol Direct HDL Cholesterol Arterial Blood Glucose Arterial Blood Ionized Calcium Urine WBC (Auto) 03/25/20 03/25/20 03/25/20 05:48 17:53 23:18 WBC RBC Hgb Hct MCV MCH RDW Plt Count Lymph % (Auto) [place] % (Auto) Lymph # (Auto) [place] # (Auto) Seg Neutrophils % Seg Neuts % (Manual) Lymphocytes % (Manual) Monocytes % (Manual) Basophils % (Manual) Seg Neutrophils # Seg Neutrophils # Man Lymphocytes # (Manual) Monocytes # (Manual) Eosinophils # (Manual) Basophils # (Manual) PT INR D-Dimer ABG pH POC ABG pCO2 POC ABG pO2 ABG pO2 ABG HCO3 ABG O2 Saturation ABG Base Excess ABG Hemoglobin ABG Oxyhemoglobin ABG Potassium ABG Glucose Oxyhemoglobin Carboxyhemoglobin Sodium Potassium Chloride Carbon Dioxide BUN Creatinine Glucose POC Glucose 124 H 109 H 131 H Calcium Ferritin Total Bilirubin Alkaline Phosphatase Lactate Dehydrogenase Total Creatine Kinase CK-MB (CK-2) Rel Index Troponin T C-Reactive Protein Total Protein Albumin Prealbumin LDL Cholesterol Direct HDL Cholesterol Arterial Blood Glucose Arterial Blood Ionized Calcium Urine WBC (Auto) 03/26/20 03/26/20 03/26/20 05:21 08:49 08:49 WBC 19.7 H RBC Hgb 10.7 L Hct 33.5 L MCV MCH 27 L RDW 17.1 H Plt Count 480 H Lymph % (Auto) 5.7 L [place] % (Auto) Lymph # (Auto) 1.1 L [place] # (Auto) 1.2 H Seg Neutrophils % 87.7 H Seg Neuts % (Manual) Lymphocytes % (Manual) Monocytes % (Manual) Basophils % (Manual) Seg Neutrophils # 17.2 H Seg Neutrophils # Man Lymphocytes # (Manual) Monocytes # (Manual) Eosinophils # (Manual) Basophils # (Manual) PT INR D-Dimer ABG pH POC ABG pCO2 POC ABG pO2 ABG pO2 ABG HCO3 ABG O2 Saturation ABG Base Excess ABG Hemoglobin ABG Oxyhemoglobin ABG Potassium ABG Glucose Oxyhemoglobin Carboxyhemoglobin Sodium Potassium Chloride 97.2 L Carbon Dioxide 36 H BUN Creatinine < 0.2 L Glucose 127 H POC Glucose 116 H Calcium Ferritin Total Bilirubin Alkaline Phosphatase Lactate Dehydrogenase Total Creatine Kinase CK-MB (CK-2) Rel Index Troponin T C-Reactive Protein Total Protein Albumin Prealbumin LDL Cholesterol Direct HDL Cholesterol Arterial Blood Glucose Arterial Blood Ionized Calcium Urine WBC (Auto) 03/26/20 03/26/20 03/26/20 11:38 18:44 23:06 WBC RBC Hgb Hct MCV MCH RDW Plt Count Lymph % (Auto) [place] % (Auto) Lymph # (Auto) [place] # (Auto) Seg Neutrophils % Seg Neuts % (Manual) Lymphocytes % (Manual) Monocytes % (Manual) Basophils % (Manual) Seg Neutrophils # Seg Neutrophils # Man Lymphocytes # (Manual) Monocytes # (Manual) Eosinophils # (Manual) Basophils # (Manual) PT INR D-Dimer ABG pH POC ABG pCO2 POC ABG pO2 ABG pO2 ABG HCO3 ABG O2 Saturation ABG Base Excess ABG Hemoglobin ABG Oxyhemoglobin ABG Potassium ABG Glucose Oxyhemoglobin Carboxyhemoglobin Sodium Potassium Chloride Carbon Dioxide BUN Creatinine Glucose POC Glucose 120 H 111 H 134 H Calcium Ferritin Total Bilirubin Alkaline Phosphatase Lactate Dehydrogenase Total Creatine Kinase CK-MB (CK-2) Rel Index Troponin T C-Reactive Protein Total Protein Albumin Prealbumin LDL Cholesterol Direct HDL Cholesterol Arterial Blood Glucose Arterial Blood Ionized Calcium Urine WBC (Auto) 03/27/20 03/27/20 03/27/20 05:41 05:59 05:59 WBC 18.6 H RBC Hgb 10.1 L Hct 31.4 L MCV MCH RDW 17.2 H Plt Count Lymph % (Auto) 8.0 L [place] % (Auto) Lymph # (Auto) [place] # (Auto) 1.2 H Seg Neutrophils % 84.7 H Seg Neuts % (Manual) Lymphocytes % (Manual) Monocytes % (Manual) Basophils % (Manual) Seg Neutrophils # 15.8 H Seg Neutrophils # Man Lymphocytes # (Manual) Monocytes # (Manual) Eosinophils # (Manual) Basophils # (Manual) PT INR D-Dimer ABG pH POC ABG pCO2 POC ABG pO2 ABG pO2 ABG HCO3 ABG O2 Saturation ABG Base Excess ABG Hemoglobin ABG Oxyhemoglobin ABG Potassium ABG Glucose Oxyhemoglobin Carboxyhemoglobin Sodium Potassium Chloride Carbon Dioxide 34 H BUN Creatinine < 0.2 L Glucose 127 H POC Glucose 129 H Calcium Ferritin Total Bilirubin Alkaline Phosphatase Lactate Dehydrogenase Total Creatine Kinase CK-MB (CK-2) Rel Index Troponin T C-Reactive Protein Total Protein Albumin Prealbumin LDL Cholesterol Direct HDL Cholesterol Arterial Blood Glucose Arterial Blood Ionized Calcium Urine WBC (Auto) 03/27/20 03/27/20 03/28/20 17:28 23:22 05:23 WBC RBC Hgb Hct MCV MCH RDW Plt Count Lymph % (Auto) [place] % (Auto) Lymph # (Auto) [place] # (Auto) Seg Neutrophils % Seg Neuts % (Manual) Lymphocytes % (Manual) Monocytes % (Manual) Basophils % (Manual) Seg Neutrophils # Seg Neutrophils # Man Lymphocytes # (Manual) Monocytes # (Manual) Eosinophils # (Manual) Basophils # (Manual) PT INR D-Dimer ABG pH POC ABG pCO2 POC ABG pO2 ABG pO2 ABG HCO3 ABG O2 Saturation ABG Base Excess ABG Hemoglobin ABG Oxyhemoglobin ABG Potassium ABG Glucose Oxyhemoglobin Carboxyhemoglobin Sodium Potassium Chloride Carbon Dioxide BUN Creatinine Glucose POC Glucose 108 H 119 H 129 H Calcium Ferritin Total Bilirubin Alkaline Phosphatase Lactate Dehydrogenase Total Creatine Kinase CK-MB (CK-2) Rel Index Troponin T C-Reactive Protein Total Protein Albumin Prealbumin LDL Cholesterol Direct HDL Cholesterol Arterial Blood Glucose Arterial Blood Ionized Calcium Urine WBC (Auto) 03/28/20 03/28/20 03/28/20 10:28 10:28 11:36 WBC 23.6 H RBC 3.62 L Hgb 10.0 L Hct 30.8 L MCV MCH RDW 16.4 H Plt Count Lymph % (Auto) [place] % (Auto) Lymph # (Auto) [place] # (Auto) Seg Neutrophils % Seg Neuts % (Manual) 89.0 H Lymphocytes % (Manual) 5.0 L Monocytes % (Manual) Basophils % (Manual) Seg Neutrophils # Seg Neutrophils # Man 21.0 H Lymphocytes # (Manual) Monocytes # (Manual) 1.2 H Eosinophils # (Manual) Basophils # (Manual) 0.2 H PT INR D-Dimer ABG pH POC ABG pCO2 POC ABG pO2 ABG pO2 ABG HCO3 ABG O2 Saturation ABG Base Excess ABG Hemoglobin ABG Oxyhemoglobin ABG Potassium ABG Glucose Oxyhemoglobin Carboxyhemoglobin Sodium 134 L Potassium Chloride 94.2 L Carbon Dioxide 35 H BUN Creatinine < 0.2 L Glucose 134 H POC Glucose Calcium Ferritin Total Bilirubin Alkaline Phosphatase Lactate Dehydrogenase Total Creatine Kinase CK-MB (CK-2) Rel Index Troponin T C-Reactive Protein Total Protein Albumin Prealbumin LDL Cholesterol Direct HDL Cholesterol Arterial Blood Glucose Arterial Blood Ionized Calcium Urine WBC (Auto) 39.0 H 03/28/20 03/28/20 03/28/20 11:51 17:08 17:17 WBC RBC Hgb Hct MCV MCH RDW Plt Count Lymph % (Auto) [place] % (Auto) Lymph # (Auto) [place] # (Auto) Seg Neutrophils % Seg Neuts % (Manual) Lymphocytes % (Manual) Monocytes % (Manual) Basophils % (Manual) Seg Neutrophils # Seg Neutrophils # Man Lymphocytes # (Manual) Monocytes # (Manual) Eosinophils # (Manual) Basophils # (Manual) PT INR D-Dimer ABG pH POC ABG pCO2 POC ABG pO2 ABG pO2 ABG HCO3 ABG O2 Saturation ABG Base Excess ABG Hemoglobin ABG Oxyhemoglobin ABG Potassium ABG Glucose Oxyhemoglobin Carboxyhemoglobin Sodium Potassium Chloride Carbon Dioxide BUN Creatinine Glucose POC Glucose 123 H 112 H Calcium Ferritin Total Bilirubin Alkaline Phosphatase Lactate Dehydrogenase Total Creatine Kinase 47 L CK-MB (CK-2) Rel Index 4.6 H Troponin T 0.090 H C-Reactive Protein Total Protein Albumin Prealbumin LDL Cholesterol Direct HDL Cholesterol Arterial Blood Glucose Arterial Blood Ionized Calcium Urine WBC (Auto) 03/28/20 03/29/20 03/29/20 23:22 05:22 10:58 WBC RBC Hgb Hct MCV MCH RDW Plt Count Lymph % (Auto) [place] % (Auto) Lymph # (Auto) [place] # (Auto) Seg Neutrophils % Seg Neuts % (Manual) Lymphocytes % (Manual) Monocytes % (Manual) Basophils % (Manual) Seg Neutrophils # Seg Neutrophils # Man Lymphocytes # (Manual) Monocytes # (Manual) Eosinophils # (Manual) Basophils # (Manual) PT INR D-Dimer ABG pH POC ABG pCO2 POC ABG pO2 ABG pO2 ABG HCO3 ABG O2 Saturation ABG Base Excess ABG Hemoglobin ABG Oxyhemoglobin ABG Potassium ABG Glucose Oxyhemoglobin Carboxyhemoglobin Sodium Potassium Chloride Carbon Dioxide BUN Creatinine Glucose POC Glucose 122 H 116 H 133 H Calcium Ferritin Total Bilirubin Alkaline Phosphatase Lactate Dehydrogenase Total Creatine Kinase CK-MB (CK-2) Rel Index Troponin T C-Reactive Protein Total Protein Albumin Prealbumin LDL Cholesterol Direct HDL Cholesterol Arterial Blood Glucose Arterial Blood Ionized Calcium Urine WBC (Auto) 03/29/20 03/29/20 03/30/20 17:18 23:14 04:57 WBC RBC Hgb Hct MCV MCH RDW Plt Count Lymph % (Auto) [place] % (Auto) Lymph # (Auto) [place] # (Auto) Seg Neutrophils % Seg Neuts % (Manual) Lymphocytes % (Manual) Monocytes % (Manual) Basophils % (Manual) Seg Neutrophils # Seg Neutrophils # Man Lymphocytes # (Manual) Monocytes # (Manual) Eosinophils # (Manual) Basophils # (Manual) PT INR D-Dimer ABG pH POC ABG pCO2 POC ABG pO2 ABG pO2 ABG HCO3 ABG O2 Saturation ABG Base Excess ABG Hemoglobin ABG Oxyhemoglobin ABG Potassium ABG Glucose Oxyhemoglobin Carboxyhemoglobin Sodium Potassium Chloride Carbon Dioxide BUN Creatinine Glucose POC Glucose 111 H 114 H 130 H Calcium Ferritin Total Bilirubin Alkaline Phosphatase Lactate Dehydrogenase Total Creatine Kinase CK-MB (CK-2) Rel Index Troponin T C-Reactive Protein Total Protein Albumin Prealbumin LDL Cholesterol Direct HDL Cholesterol Arterial Blood Glucose Arterial Blood Ionized Calcium Urine WBC (Auto) 03/30/20 03/30/20 03/30/20 11:38 14:47 14:47 WBC 19.9 H RBC Hgb 10.9 L Hct 34.4 L MCV MCH 27 L RDW 16.5 H Plt Count 441 H Lymph % (Auto) 6.4 L [place] % (Auto) Lymph # (Auto) [place] # (Auto) 1.4 H Seg Neutrophils % 86.1 H Seg Neuts % (Manual) Lymphocytes % (Manual) Monocytes % (Manual) Basophils % (Manual) Seg Neutrophils # 17.1 H Seg Neutrophils # Man Lymphocytes # (Manual) Monocytes # (Manual) Eosinophils # (Manual) Basophils # (Manual) PT INR D-Dimer ABG pH POC ABG pCO2 POC ABG pO2 ABG pO2 ABG HCO3 ABG O2 Saturation ABG Base Excess ABG Hemoglobin ABG Oxyhemoglobin ABG Potassium ABG Glucose Oxyhemoglobin Carboxyhemoglobin Sodium 133 L Potassium Chloride 94.6 L Carbon Dioxide 33 H BUN Creatinine < 0.2 L Glucose 194 H POC Glucose 139 H Calcium Ferritin Total Bilirubin Alkaline Phosphatase Lactate Dehydrogenase Total Creatine Kinase CK-MB (CK-2) Rel Index Troponin T C-Reactive Protein Total Protein Albumin 2.8 L Prealbumin LDL Cholesterol Direct HDL Cholesterol Arterial Blood Glucose Arterial Blood Ionized Calcium Urine WBC (Auto) 03/30/20 03/31/20 03/31/20 17:07 05:02 15:21 WBC RBC Hgb Hct MCV MCH RDW Plt Count Lymph % (Auto) [place] % (Auto) Lymph # (Auto) [place] # (Auto) Seg Neutrophils % Seg Neuts % (Manual) Lymphocytes % (Manual) Monocytes % (Manual) Basophils % (Manual) Seg Neutrophils # Seg Neutrophils # Man Lymphocytes # (Manual) Monocytes # (Manual) Eosinophils # (Manual) Basophils # (Manual) PT INR D-Dimer ABG pH POC ABG pCO2 POC ABG pO2 ABG pO2 ABG HCO3 ABG O2 Saturation ABG Base Excess ABG Hemoglobin ABG Oxyhemoglobin ABG Potassium ABG Glucose Oxyhemoglobin Carboxyhemoglobin Sodium Potassium Chloride Carbon Dioxide BUN Creatinine Glucose POC Glucose 163 H 108 H 110 H Calcium Ferritin Total Bilirubin Alkaline Phosphatase Lactate Dehydrogenase Total Creatine Kinase CK-MB (CK-2) Rel Index Troponin T C-Reactive Protein Total Protein Albumin Prealbumin LDL Cholesterol Direct HDL Cholesterol Arterial Blood Glucose Arterial Blood Ionized Calcium Urine WBC (Auto) 03/31/20 03/31/20 04/01/20 17:58 23:19 05:09 WBC RBC Hgb Hct MCV MCH RDW Plt Count Lymph % (Auto) [place] % (Auto) Lymph # (Auto) [place] # (Auto) Seg Neutrophils % Seg Neuts % (Manual) Lymphocytes % (Manual) Monocytes % (Manual) Basophils % (Manual) Seg Neutrophils # Seg Neutrophils # Man Lymphocytes # (Manual) Monocytes # (Manual) Eosinophils # (Manual) Basophils # (Manual) PT INR D-Dimer ABG pH POC ABG pCO2 POC ABG pO2 ABG pO2 ABG HCO3 ABG O2 Saturation ABG Base Excess ABG Hemoglobin ABG Oxyhemoglobin ABG Potassium ABG Glucose Oxyhemoglobin Carboxyhemoglobin Sodium Potassium Chloride Carbon Dioxide BUN Creatinine Glucose POC Glucose 110 H 131 H 124 H Calcium Ferritin Total Bilirubin Alkaline Phosphatase Lactate Dehydrogenase Total Creatine Kinase CK-MB (CK-2) Rel Index Troponin T C-Reactive Protein Total Protein Albumin Prealbumin LDL Cholesterol Direct HDL Cholesterol Arterial Blood Glucose Arterial Blood Ionized Calcium Urine WBC (Auto) 04/01/20 04/01/20 04/01/20 11:50 17:01 23:21 WBC RBC Hgb Hct MCV MCH RDW Plt Count Lymph % (Auto) [place] % (Auto) Lymph # (Auto) [place] # (Auto) Seg Neutrophils % Seg Neuts % (Manual) Lymphocytes % (Manual) Monocytes % (Manual) Basophils % (Manual) Seg Neutrophils # Seg Neutrophils # Man Lymphocytes # (Manual) Monocytes # (Manual) Eosinophils # (Manual) Basophils # (Manual) PT INR D-Dimer ABG pH POC ABG pCO2 POC ABG pO2 ABG pO2 ABG HCO3 ABG O2 Saturation ABG Base Excess ABG Hemoglobin ABG Oxyhemoglobin ABG Potassium ABG Glucose Oxyhemoglobin Carboxyhemoglobin Sodium Potassium Chloride Carbon Dioxide BUN Creatinine Glucose POC Glucose 136 H 115 H 124 H Calcium Ferritin Total Bilirubin Alkaline Phosphatase Lactate Dehydrogenase Total Creatine Kinase CK-MB (CK-2) Rel Index Troponin T C-Reactive Protein Total Protein Albumin Prealbumin LDL Cholesterol Direct HDL Cholesterol Arterial Blood Glucose Arterial Blood Ionized Calcium Urine WBC (Auto) 04/02/20 04/02/20 04/02/20 05:27 11:58 17:58 WBC RBC Hgb Hct MCV MCH RDW Plt Count Lymph % (Auto) [place] % (Auto) Lymph # (Auto) [place] # (Auto) Seg Neutrophils % Seg Neuts % (Manual) Lymphocytes % (Manual) Monocytes % (Manual) Basophils % (Manual) Seg Neutrophils # Seg Neutrophils # Man Lymphocytes # (Manual) Monocytes # (Manual) Eosinophils # (Manual) Basophils # (Manual) PT INR D-Dimer ABG pH POC ABG pCO2 POC ABG pO2 ABG pO2 ABG HCO3 ABG O2 Saturation ABG Base Excess ABG Hemoglobin ABG Oxyhemoglobin ABG Potassium ABG Glucose Oxyhemoglobin Carboxyhemoglobin Sodium Potassium Chloride Carbon Dioxide BUN Creatinine Glucose POC Glucose 117 H 133 H 122 H Calcium Ferritin Total Bilirubin Alkaline Phosphatase Lactate Dehydrogenase Total Creatine Kinase CK-MB (CK-2) Rel Index Troponin T C-Reactive Protein Total Protein Albumin Prealbumin LDL Cholesterol Direct HDL Cholesterol Arterial Blood Glucose Arterial Blood Ionized Calcium Urine WBC (Auto) 04/02/20 04/03/20 04/03/20 23:12 05:11 11:11 WBC RBC Hgb Hct MCV MCH RDW Plt Count Lymph % (Auto) [place] % (Auto) Lymph # (Auto) [place] # (Auto) Seg Neutrophils % Seg Neuts % (Manual) Lymphocytes % (Manual) Monocytes % (Manual) Basophils % (Manual) Seg Neutrophils # Seg Neutrophils # Man Lymphocytes # (Manual) Monocytes # (Manual) Eosinophils # (Manual) Basophils # (Manual) PT INR D-Dimer ABG pH POC ABG pCO2 POC ABG pO2 ABG pO2 ABG HCO3 ABG O2 Saturation ABG Base Excess ABG Hemoglobin ABG Oxyhemoglobin ABG Potassium ABG Glucose Oxyhemoglobin Carboxyhemoglobin Sodium Potassium Chloride Carbon Dioxide BUN Creatinine Glucose POC Glucose 130 H 139 H 136 H Calcium Ferritin Total Bilirubin Alkaline Phosphatase Lactate Dehydrogenase Total Creatine Kinase CK-MB (CK-2) Rel Index Troponin T C-Reactive Protein Total Protein Albumin Prealbumin LDL Cholesterol Direct HDL Cholesterol Arterial Blood Glucose Arterial Blood Ionized Calcium Urine WBC (Auto) 04/03/20 04/03/20 04/04/20 16:51 23:25 05:29 WBC RBC Hgb Hct MCV MCH RDW Plt Count Lymph % (Auto) [place] % (Auto) Lymph # (Auto) [place] # (Auto) Seg Neutrophils % Seg Neuts % (Manual) Lymphocytes % (Manual) Monocytes % (Manual) Basophils % (Manual) Seg Neutrophils # Seg Neutrophils # Man Lymphocytes # (Manual) Monocytes # (Manual) Eosinophils # (Manual) Basophils # (Manual) PT INR D-Dimer ABG pH POC ABG pCO2 POC ABG pO2 ABG pO2 ABG HCO3 ABG O2 Saturation ABG Base Excess ABG Hemoglobin ABG Oxyhemoglobin ABG Potassium ABG Glucose Oxyhemoglobin Carboxyhemoglobin Sodium Potassium Chloride Carbon Dioxide BUN Creatinine Glucose POC Glucose 118 H 111 H 126 H Calcium Ferritin Total Bilirubin Alkaline Phosphatase Lactate Dehydrogenase Total Creatine Kinase CK-MB (CK-2) Rel Index Troponin T C-Reactive Protein Total Protein Albumin Prealbumin LDL Cholesterol Direct HDL Cholesterol Arterial Blood Glucose Arterial Blood Ionized Calcium Urine WBC (Auto) 04/04/20 04/04/20 04/04/20 11:47 17:41 23:05 WBC RBC Hgb Hct MCV MCH RDW Plt Count Lymph % (Auto) [place] % (Auto) Lymph # (Auto) [place] # (Auto) Seg Neutrophils % Seg Neuts % (Manual) Lymphocytes % (Manual) Monocytes % (Manual) Basophils % (Manual) Seg Neutrophils # Seg Neutrophils # Man Lymphocytes # (Manual) Monocytes # (Manual) Eosinophils # (Manual) Basophils # (Manual) PT INR D-Dimer ABG pH POC ABG pCO2 POC ABG pO2 ABG pO2 ABG HCO3 ABG O2 Saturation ABG Base Excess ABG Hemoglobin ABG Oxyhemoglobin ABG Potassium ABG Glucose Oxyhemoglobin Carboxyhemoglobin Sodium Potassium Chloride Carbon Dioxide BUN Creatinine Glucose POC Glucose 123 H 120 H 119 H Calcium Ferritin Total Bilirubin Alkaline Phosphatase Lactate Dehydrogenase Total Creatine Kinase CK-MB (CK-2) Rel Index Troponin T C-Reactive Protein Total Protein Albumin Prealbumin LDL Cholesterol Direct HDL Cholesterol Arterial Blood Glucose Arterial Blood Ionized Calcium Urine WBC (Auto) 04/05/20 04/05/20 04/05/20 05:14 12:16 18:48 WBC RBC Hgb Hct MCV MCH RDW Plt Count Lymph % (Auto) [place] % (Auto) Lymph # (Auto) [place] # (Auto) Seg Neutrophils % Seg Neuts % (Manual) Lymphocytes % (Manual) Monocytes % (Manual) Basophils % (Manual) Seg Neutrophils # Seg Neutrophils # Man Lymphocytes # (Manual) Monocytes # (Manual) Eosinophils # (Manual) Basophils # (Manual) PT INR D-Dimer ABG pH POC ABG pCO2 POC ABG pO2 ABG pO2 ABG HCO3 ABG O2 Saturation ABG Base Excess ABG Hemoglobin ABG Oxyhemoglobin ABG Potassium ABG Glucose Oxyhemoglobin Carboxyhemoglobin Sodium Potassium Chloride Carbon Dioxide BUN Creatinine Glucose POC Glucose 123 H 148 H 106 H Calcium Ferritin Total Bilirubin Alkaline Phosphatase Lactate Dehydrogenase Total Creatine Kinase CK-MB (CK-2) Rel Index Troponin T C-Reactive Protein Total Protein Albumin Prealbumin LDL Cholesterol Direct HDL Cholesterol Arterial Blood Glucose Arterial Blood Ionized Calcium Urine WBC (Auto) 04/06/20 04/06/20 04/06/20 00:47 03:26 08:24 WBC RBC Hgb Hct MCV MCH RDW Plt Count Lymph % (Auto) [place] % (Auto) Lymph # (Auto) [place] # (Auto) Seg Neutrophils % Seg Neuts % (Manual) Lymphocytes % (Manual) Monocytes % (Manual) Basophils % (Manual) Seg Neutrophils # Seg Neutrophils # Man Lymphocytes # (Manual) Monocytes # (Manual) Eosinophils # (Manual) Basophils # (Manual) PT INR D-Dimer ABG pH POC ABG pCO2 POC ABG pO2 ABG pO2 ABG HCO3 ABG O2 Saturation ABG Base Excess ABG Hemoglobin ABG Oxyhemoglobin ABG Potassium ABG Glucose Oxyhemoglobin Carboxyhemoglobin Sodium Potassium Chloride Carbon Dioxide BUN Creatinine Glucose POC Glucose 129 H 134 H 131 H Calcium Ferritin Total Bilirubin Alkaline Phosphatase Lactate Dehydrogenase Total Creatine Kinase CK-MB (CK-2) Rel Index Troponin T C-Reactive Protein Total Protein Albumin Prealbumin LDL Cholesterol Direct HDL Cholesterol Arterial Blood Glucose Arterial Blood Ionized Calcium Urine WBC (Auto) 04/06/20 04/06/20 04/06/20 11:16 16:27 23:01 WBC RBC Hgb Hct MCV MCH RDW Plt Count Lymph % (Auto) [place] % (Auto) Lymph # (Auto) [place] # (Auto) Seg Neutrophils % Seg Neuts % (Manual) Lymphocytes % (Manual) Monocytes % (Manual) Basophils % (Manual) Seg Neutrophils # Seg Neutrophils # Man Lymphocytes # (Manual) Monocytes # (Manual) Eosinophils # (Manual) Basophils # (Manual) PT INR D-Dimer ABG pH POC ABG pCO2 POC ABG pO2 ABG pO2 ABG HCO3 ABG O2 Saturation ABG Base Excess ABG Hemoglobin ABG Oxyhemoglobin ABG Potassium ABG Glucose Oxyhemoglobin Carboxyhemoglobin Sodium Potassium Chloride Carbon Dioxide BUN Creatinine Glucose POC Glucose 131 H 107 H 125 H Calcium Ferritin Total Bilirubin Alkaline Phosphatase Lactate Dehydrogenase Total Creatine Kinase CK-MB (CK-2) Rel Index Troponin T C-Reactive Protein Total Protein Albumin Prealbumin LDL Cholesterol Direct HDL Cholesterol Arterial Blood Glucose Arterial Blood Ionized Calcium Urine WBC (Auto) 04/07/20 04/07/20 04/07/20 05:24 12:41 17:40 WBC RBC Hgb Hct MCV MCH RDW Plt Count Lymph % (Auto) [place] % (Auto) Lymph # (Auto) [place] # (Auto) Seg Neutrophils % Seg Neuts % (Manual) Lymphocytes % (Manual) Monocytes % (Manual) Basophils % (Manual) Seg Neutrophils # Seg Neutrophils # Man Lymphocytes # (Manual) Monocytes # (Manual) Eosinophils # (Manual) Basophils # (Manual) PT INR D-Dimer ABG pH POC ABG pCO2 POC ABG pO2 ABG pO2 ABG HCO3 ABG O2 Saturation ABG Base Excess ABG Hemoglobin ABG Oxyhemoglobin ABG Potassium ABG Glucose Oxyhemoglobin Carboxyhemoglobin Sodium Potassium Chloride Carbon Dioxide BUN Creatinine Glucose POC Glucose 125 H 145 H 123 H Calcium Ferritin Total Bilirubin Alkaline Phosphatase Lactate Dehydrogenase Total Creatine Kinase CK-MB (CK-2) Rel Index Troponin T C-Reactive Protein Total Protein Albumin Prealbumin LDL Cholesterol Direct HDL Cholesterol Arterial Blood Glucose Arterial Blood Ionized Calcium Urine WBC (Auto) 04/07/20 04/08/20 04/08/20 23:22 05:40 11:29 WBC RBC Hgb Hct MCV MCH RDW Plt Count Lymph % (Auto) [place] % (Auto) Lymph # (Auto) [place] # (Auto) Seg Neutrophils % Seg Neuts % (Manual) Lymphocytes % (Manual) Monocytes % (Manual) Basophils % (Manual) Seg Neutrophils # Seg Neutrophils # Man Lymphocytes # (Manual) Monocytes # (Manual) Eosinophils # (Manual) Basophils # (Manual) PT INR D-Dimer ABG pH POC ABG pCO2 POC ABG pO2 ABG pO2 ABG HCO3 ABG O2 Saturation ABG Base Excess ABG Hemoglobin ABG Oxyhemoglobin ABG Potassium ABG Glucose Oxyhemoglobin Carboxyhemoglobin Sodium Potassium Chloride Carbon Dioxide BUN Creatinine Glucose POC Glucose 133 H 125 H 116 H Calcium Ferritin Total Bilirubin Alkaline Phosphatase Lactate Dehydrogenase Total Creatine Kinase CK-MB (CK-2) Rel Index Troponin T C-Reactive Protein Total Protein Albumin Prealbumin LDL Cholesterol Direct HDL Cholesterol Arterial Blood Glucose Arterial Blood Ionized Calcium Urine WBC (Auto) 04/08/20 04/09/20 04/09/20 17:43 05:47 12:22 WBC RBC Hgb Hct MCV MCH RDW Plt Count Lymph % (Auto) [place] % (Auto) Lymph # (Auto) [place] # (Auto) Seg Neutrophils % Seg Neuts % (Manual) Lymphocytes % (Manual) Monocytes % (Manual) Basophils % (Manual) Seg Neutrophils # Seg Neutrophils # Man Lymphocytes # (Manual) Monocytes # (Manual) Eosinophils # (Manual) Basophils # (Manual) PT INR D-Dimer ABG pH POC ABG pCO2 POC ABG pO2 ABG pO2 ABG HCO3 ABG O2 Saturation ABG Base Excess ABG Hemoglobin ABG Oxyhemoglobin ABG Potassium ABG Glucose Oxyhemoglobin Carboxyhemoglobin Sodium Potassium Chloride Carbon Dioxide BUN Creatinine Glucose POC Glucose 123 H 108 H 116 H Calcium Ferritin Total Bilirubin Alkaline Phosphatase Lactate Dehydrogenase Total Creatine Kinase CK-MB (CK-2) Rel Index Troponin T C-Reactive Protein Total Protein Albumin Prealbumin LDL Cholesterol Direct HDL Cholesterol Arterial Blood Glucose Arterial Blood Ionized Calcium Urine WBC (Auto) 04/09/20 04/09/20 04/10/20 17:24 23:52 06:10 WBC RBC Hgb Hct MCV MCH RDW Plt Count Lymph % (Auto) [place] % (Auto) Lymph # (Auto) [place] # (Auto) Seg Neutrophils % Seg Neuts % (Manual) Lymphocytes % (Manual) Monocytes % (Manual) Basophils % (Manual) Seg Neutrophils # Seg Neutrophils # Man Lymphocytes # (Manual) Monocytes # (Manual) Eosinophils # (Manual) Basophils # (Manual) PT INR D-Dimer ABG pH POC ABG pCO2 POC ABG pO2 ABG pO2 ABG HCO3 ABG O2 Saturation ABG Base Excess ABG Hemoglobin ABG Oxyhemoglobin ABG Potassium ABG Glucose Oxyhemoglobin Carboxyhemoglobin Sodium Potassium Chloride Carbon Dioxide BUN Creatinine Glucose POC Glucose 108 H 126 H 122 H Calcium Ferritin Total Bilirubin Alkaline Phosphatase Lactate Dehydrogenase Total Creatine Kinase CK-MB (CK-2) Rel Index Troponin T C-Reactive Protein Total Protein Albumin Prealbumin LDL Cholesterol Direct HDL Cholesterol Arterial Blood Glucose Arterial Blood Ionized Calcium Urine WBC (Auto) 04/10/20 04/10/20 04/10/20 11:27 18:11 23:24 WBC RBC Hgb Hct MCV MCH RDW Plt Count Lymph % (Auto) [place] % (Auto) Lymph # (Auto) [place] # (Auto) Seg Neutrophils % Seg Neuts % (Manual) Lymphocytes % (Manual) Monocytes % (Manual) Basophils % (Manual) Seg Neutrophils # Seg Neutrophils # Man Lymphocytes # (Manual) Monocytes # (Manual) Eosinophils # (Manual) Basophils # (Manual) PT INR D-Dimer ABG pH POC ABG pCO2 POC ABG pO2 ABG pO2 ABG HCO3 ABG O2 Saturation ABG Base Excess ABG Hemoglobin ABG Oxyhemoglobin ABG Potassium ABG Glucose Oxyhemoglobin Carboxyhemoglobin Sodium Potassium Chloride Carbon Dioxide BUN Creatinine Glucose POC Glucose 129 H 125 H 107 H Calcium Ferritin Total Bilirubin Alkaline Phosphatase Lactate Dehydrogenase Total Creatine Kinase CK-MB (CK-2) Rel Index Troponin T C-Reactive Protein Total Protein Albumin Prealbumin LDL Cholesterol Direct HDL Cholesterol Arterial Blood Glucose Arterial Blood Ionized Calcium Urine WBC (Auto) 04/11/20 04/11/20 04/11/20 05:28 11:46 23:49 WBC RBC Hgb Hct MCV MCH RDW Plt Count Lymph % (Auto) [place] % (Auto) Lymph # (Auto) [place] # (Auto) Seg Neutrophils % Seg Neuts % (Manual) Lymphocytes % (Manual) Monocytes % (Manual) Basophils % (Manual) Seg Neutrophils # Seg Neutrophils # Man Lymphocytes # (Manual) Monocytes # (Manual) Eosinophils # (Manual) Basophils # (Manual) PT INR D-Dimer ABG pH POC ABG pCO2 POC ABG pO2 ABG pO2 ABG HCO3 ABG O2 Saturation ABG Base Excess ABG Hemoglobin ABG Oxyhemoglobin ABG Potassium ABG Glucose Oxyhemoglobin Carboxyhemoglobin Sodium Potassium Chloride Carbon Dioxide BUN Creatinine Glucose POC Glucose 122 H 122 H 116 H Calcium Ferritin Total Bilirubin Alkaline Phosphatase Lactate Dehydrogenase Total Creatine Kinase CK-MB (CK-2) Rel Index Troponin T C-Reactive Protein Total Protein Albumin Prealbumin LDL Cholesterol Direct HDL Cholesterol Arterial Blood Glucose Arterial Blood Ionized Calcium Urine WBC (Auto) 04/12/20 04/12/20 04/12/20 09:07 09:07 11:39 WBC 13.1 H RBC 3.59 L Hgb 9.5 L Hct 29.8 L MCV 83 L MCH 26 L RDW 16.6 H Plt Count 591 H Lymph % (Auto) [place] % (Auto) Lymph # (Auto) [place] # (Auto) Seg Neutrophils % Seg Neuts % (Manual) 86.0 H Lymphocytes % (Manual) 7.0 L Monocytes % (Manual) Basophils % (Manual) Seg Neutrophils # Seg Neutrophils # Man 11.3 H Lymphocytes # (Manual) 0.9 L Monocytes # (Manual) Eosinophils # (Manual) Basophils # (Manual) PT INR D-Dimer ABG pH POC ABG pCO2 POC ABG pO2 ABG pO2 ABG HCO3 ABG O2 Saturation ABG Base Excess ABG Hemoglobin ABG Oxyhemoglobin ABG Potassium ABG Glucose Oxyhemoglobin Carboxyhemoglobin Sodium Potassium Chloride Carbon Dioxide 36 H BUN Creatinine < 0.2 L Glucose 132 H POC Glucose 136 H Calcium Ferritin Total Bilirubin Alkaline Phosphatase Lactate Dehydrogenase Total Creatine Kinase CK-MB (CK-2) Rel Index Troponin T C-Reactive Protein Total Protein Albumin 2.7 L Prealbumin LDL Cholesterol Direct HDL Cholesterol Arterial Blood Glucose Arterial Blood Ionized Calcium Urine WBC (Auto) 04/12/20 04/12/20 04/13/20 18:13 23:07 05:45 WBC RBC Hgb Hct MCV MCH RDW Plt Count Lymph % (Auto) [place] % (Auto) Lymph # (Auto) [place] # (Auto) Seg Neutrophils % Seg Neuts % (Manual) Lymphocytes % (Manual) Monocytes % (Manual) Basophils % (Manual) Seg Neutrophils # Seg Neutrophils # Man Lymphocytes # (Manual) Monocytes # (Manual) Eosinophils # (Manual) Basophils # (Manual) PT INR D-Dimer ABG pH POC ABG pCO2 POC ABG pO2 ABG pO2 ABG HCO3 ABG O2 Saturation ABG Base Excess ABG Hemoglobin ABG Oxyhemoglobin ABG Potassium ABG Glucose Oxyhemoglobin Carboxyhemoglobin Sodium Potassium Chloride Carbon Dioxide BUN Creatinine Glucose POC Glucose 107 H 106 H 125 H Calcium Ferritin Total Bilirubin Alkaline Phosphatase Lactate Dehydrogenase Total Creatine Kinase CK-MB (CK-2) Rel Index Troponin T C-Reactive Protein Total Protein Albumin Prealbumin LDL Cholesterol Direct HDL Cholesterol Arterial Blood Glucose Arterial Blood Ionized Calcium Urine WBC (Auto) 04/13/20 04/13/20 04/13/20 11:18 17:56 23:33 WBC RBC Hgb Hct MCV MCH RDW Plt Count Lymph % (Auto) [place] % (Auto) Lymph # (Auto) [place] # (Auto) Seg Neutrophils % Seg Neuts % (Manual) Lymphocytes % (Manual) Monocytes % (Manual) Basophils % (Manual) Seg Neutrophils # Seg Neutrophils # Man Lymphocytes # (Manual) Monocytes # (Manual) Eosinophils # (Manual) Basophils # (Manual) PT INR D-Dimer ABG pH POC ABG pCO2 POC ABG pO2 ABG pO2 ABG HCO3 ABG O2 Saturation ABG Base Excess ABG Hemoglobin ABG Oxyhemoglobin ABG Potassium ABG Glucose Oxyhemoglobin Carboxyhemoglobin Sodium Potassium Chloride Carbon Dioxide BUN Creatinine Glucose POC Glucose 133 H 110 H 114 H Calcium Ferritin Total Bilirubin Alkaline Phosphatase Lactate Dehydrogenase Total Creatine Kinase CK-MB (CK-2) Rel Index Troponin T C-Reactive Protein Total Protein Albumin Prealbumin LDL Cholesterol Direct HDL Cholesterol Arterial Blood Glucose Arterial Blood Ionized Calcium Urine WBC (Auto) 04/14/20 04/14/20 04/14/20 05:58 11:45 17:48 WBC RBC Hgb Hct MCV MCH RDW Plt Count Lymph % (Auto) [place] % (Auto) Lymph # (Auto) [place] # (Auto) Seg Neutrophils % Seg Neuts % (Manual) Lymphocytes % (Manual) Monocytes % (Manual) Basophils % (Manual) Seg Neutrophils # Seg Neutrophils # Man Lymphocytes # (Manual) Monocytes # (Manual) Eosinophils # (Manual) Basophils # (Manual) PT INR D-Dimer ABG pH POC ABG pCO2 POC ABG pO2 ABG pO2 ABG HCO3 ABG O2 Saturation ABG Base Excess ABG Hemoglobin ABG Oxyhemoglobin ABG Potassium ABG Glucose Oxyhemoglobin Carboxyhemoglobin Sodium Potassium Chloride Carbon Dioxide BUN Creatinine Glucose POC Glucose 115 H 122 H 124 H Calcium Ferritin Total Bilirubin Alkaline Phosphatase Lactate Dehydrogenase Total Creatine Kinase CK-MB (CK-2) Rel Index Troponin T C-Reactive Protein Total Protein Albumin Prealbumin LDL Cholesterol Direct HDL Cholesterol Arterial Blood Glucose Arterial Blood Ionized Calcium Urine WBC (Auto) 04/15/20 04/15/20 04/15/20 00:11 05:38 11:31 WBC RBC Hgb Hct MCV MCH RDW Plt Count Lymph % (Auto) [place] % (Auto) Lymph # (Auto) [place] # (Auto) Seg Neutrophils % Seg Neuts % (Manual) Lymphocytes % (Manual) Monocytes % (Manual) Basophils % (Manual) Seg Neutrophils # Seg Neutrophils # Man Lymphocytes # (Manual) Monocytes # (Manual) Eosinophils # (Manual) Basophils # (Manual) PT INR D-Dimer ABG pH POC ABG pCO2 POC ABG pO2 ABG pO2 ABG HCO3 ABG O2 Saturation ABG Base Excess ABG Hemoglobin ABG Oxyhemoglobin ABG Potassium ABG Glucose Oxyhemoglobin Carboxyhemoglobin Sodium Potassium Chloride Carbon Dioxide BUN Creatinine Glucose POC Glucose 120 H 109 H 123 H Calcium Ferritin Total Bilirubin Alkaline Phosphatase Lactate Dehydrogenase Total Creatine Kinase CK-MB (CK-2) Rel Index Troponin T C-Reactive Protein Total Protein Albumin Prealbumin LDL Cholesterol Direct HDL Cholesterol Arterial Blood Glucose Arterial Blood Ionized Calcium Urine WBC (Auto) 04/15/20 04/16/20 04/16/20 17:35 06:00 11:29 WBC RBC Hgb Hct MCV MCH RDW Plt Count Lymph % (Auto) [place] % (Auto) Lymph # (Auto) [place] # (Auto) Seg Neutrophils % Seg Neuts % (Manual) Lymphocytes % (Manual) Monocytes % (Manual) Basophils % (Manual) Seg Neutrophils # Seg Neutrophils # Man Lymphocytes # (Manual) Monocytes # (Manual) Eosinophils # (Manual) Basophils # (Manual) PT INR D-Dimer ABG pH POC ABG pCO2 POC ABG pO2 ABG pO2 ABG HCO3 ABG O2 Saturation ABG Base Excess ABG Hemoglobin ABG Oxyhemoglobin ABG Potassium ABG Glucose Oxyhemoglobin Carboxyhemoglobin Sodium Potassium Chloride Carbon Dioxide BUN Creatinine Glucose POC Glucose 111 H 142 H 108 H Calcium Ferritin Total Bilirubin Alkaline Phosphatase Lactate Dehydrogenase Total Creatine Kinase CK-MB (CK-2) Rel Index Troponin T C-Reactive Protein Total Protein Albumin Prealbumin LDL Cholesterol Direct HDL Cholesterol Arterial Blood Glucose Arterial Blood Ionized Calcium Urine WBC (Auto) 04/17/20 04/17/20 04/17/20 05:09 06:53 06:53 WBC 14.2 H RBC Hgb 10.1 L Hct 31.5 L MCV MCH 27 L RDW 17.2 H Plt Count 643 H Lymph % (Auto) [place] % (Auto) Lymph # (Auto) [place] # (Auto) Seg Neutrophils % Seg Neuts % (Manual) Lymphocytes % (Manual) Monocytes % (Manual) Basophils % (Manual) Seg Neutrophils # Seg Neutrophils # Man Lymphocytes # (Manual) Monocytes # (Manual) Eosinophils # (Manual) Basophils # (Manual) PT INR D-Dimer ABG pH POC ABG pCO2 POC ABG pO2 ABG pO2 ABG HCO3 ABG O2 Saturation ABG Base Excess ABG Hemoglobin ABG Oxyhemoglobin ABG Potassium ABG Glucose Oxyhemoglobin Carboxyhemoglobin Sodium Potassium Chloride 97.7 L Carbon Dioxide 38 H BUN Creatinine < 0.2 L Glucose 126 H POC Glucose 131 H Calcium Ferritin Total Bilirubin Alkaline Phosphatase Lactate Dehydrogenase Total Creatine Kinase CK-MB (CK-2) Rel Index Troponin T C-Reactive Protein Total Protein Albumin Prealbumin LDL Cholesterol Direct HDL Cholesterol Arterial Blood Glucose Arterial Blood Ionized Calcium Urine WBC (Auto) 04/17/20 04/18/20 04/18/20 11:21 00:23 04:01 WBC 15.3 H RBC Hgb 10.1 L Hct 31.9 L MCV 82 L MCH 26 L RDW 17.2 H Plt Count 665 H Lymph % (Auto) 12.9 L [place] % (Auto) Lymph # (Auto) [place] # (Auto) 1.1 H Seg Neutrophils % 78.0 H Seg Neuts % (Manual) Lymphocytes % (Manual) Monocytes % (Manual) Basophils % (Manual) Seg Neutrophils # 11.9 H Seg Neutrophils # Man Lymphocytes # (Manual) Monocytes # (Manual) Eosinophils # (Manual) Basophils # (Manual) PT INR D-Dimer ABG pH POC ABG pCO2 POC ABG pO2 ABG pO2 ABG HCO3 ABG O2 Saturation ABG Base Excess ABG Hemoglobin ABG Oxyhemoglobin ABG Potassium ABG Glucose Oxyhemoglobin Carboxyhemoglobin Sodium Potassium Chloride Carbon Dioxide BUN Creatinine Glucose POC Glucose 140 H 125 H Calcium Ferritin Total Bilirubin Alkaline Phosphatase Lactate Dehydrogenase Total Creatine Kinase CK-MB (CK-2) Rel Index Troponin T C-Reactive Protein Total Protein Albumin Prealbumin LDL Cholesterol Direct HDL Cholesterol Arterial Blood Glucose Arterial Blood Ionized Calcium Urine WBC (Auto) 04/18/20 04/18/20 04/18/20 04:01 11:29 17:30 WBC RBC Hgb Hct MCV MCH RDW Plt Count Lymph % (Auto) [place] % (Auto) Lymph # (Auto) [place] # (Auto) Seg Neutrophils % Seg Neuts % (Manual) Lymphocytes % (Manual) Monocytes % (Manual) Basophils % (Manual) Seg Neutrophils # Seg Neutrophils # Man Lymphocytes # (Manual) Monocytes # (Manual) Eosinophils # (Manual) Basophils # (Manual) PT INR D-Dimer ABG pH POC ABG pCO2 POC ABG pO2 ABG pO2 ABG HCO3 ABG O2 Saturation ABG Base Excess ABG Hemoglobin ABG Oxyhemoglobin ABG Potassium ABG Glucose Oxyhemoglobin Carboxyhemoglobin Sodium Potassium Chloride 97.0 L Carbon Dioxide 38 H BUN Creatinine < 0.2 L Glucose 117 H POC Glucose 136 H 107 H Calcium Ferritin Total Bilirubin Alkaline Phosphatase Lactate Dehydrogenase Total Creatine Kinase CK-MB (CK-2) Rel Index Troponin T C-Reactive Protein Total Protein Albumin Prealbumin LDL Cholesterol Direct HDL Cholesterol Arterial Blood Glucose Arterial Blood Ionized Calcium Urine WBC (Auto) 04/18/20 04/19/20 04/19/20 23:19 06:51 06:51 WBC 12.2 H RBC Hgb 9.8 L Hct 31.1 L MCV 82 L MCH 26 L RDW 17.2 H Plt Count 549 H Lymph % (Auto) 6.5 L [place] % (Auto) Lymph # (Auto) 0.8 L [place] # (Auto) Seg Neutrophils % 86.7 H Seg Neuts % (Manual) Lymphocytes % (Manual) Monocytes % (Manual) Basophils % (Manual) Seg Neutrophils # 10.6 H Seg Neutrophils # Man Lymphocytes # (Manual) Monocytes # (Manual) Eosinophils # (Manual) Basophils # (Manual) PT INR D-Dimer ABG pH POC ABG pCO2 POC ABG pO2 ABG pO2 ABG HCO3 ABG O2 Saturation ABG Base Excess ABG Hemoglobin ABG Oxyhemoglobin ABG Potassium ABG Glucose Oxyhemoglobin Carboxyhemoglobin Sodium Potassium Chloride 97.8 L Carbon Dioxide 38 H BUN Creatinine < 0.2 L Glucose 123 H POC Glucose 127 H Calcium Ferritin Total Bilirubin Alkaline Phosphatase Lactate Dehydrogenase Total Creatine Kinase CK-MB (CK-2) Rel Index Troponin T C-Reactive Protein Total Protein Albumin Prealbumin LDL Cholesterol Direct HDL Cholesterol Arterial Blood Glucose Arterial Blood Ionized Calcium Urine WBC (Auto) 04/19/20 04/19/20 04/20/20 13:41 18:33 05:56 WBC RBC Hgb Hct MCV MCH RDW Plt Count Lymph % (Auto) [place] % (Auto) Lymph # (Auto) [place] # (Auto) Seg Neutrophils % Seg Neuts % (Manual) Lymphocytes % (Manual) Monocytes % (Manual) Basophils % (Manual) Seg Neutrophils # Seg Neutrophils # Man Lymphocytes # (Manual) Monocytes # (Manual) Eosinophils # (Manual) Basophils # (Manual) PT INR D-Dimer ABG pH POC ABG pCO2 POC ABG pO2 ABG pO2 ABG HCO3 ABG O2 Saturation ABG Base Excess ABG Hemoglobin ABG Oxyhemoglobin ABG Potassium ABG Glucose Oxyhemoglobin Carboxyhemoglobin Sodium Potassium Chloride Carbon Dioxide BUN Creatinine Glucose POC Glucose 116 H 124 H 130 H Calcium Ferritin Total Bilirubin Alkaline Phosphatase Lactate Dehydrogenase Total Creatine Kinase CK-MB (CK-2) Rel Index Troponin T C-Reactive Protein Total Protein Albumin Prealbumin LDL Cholesterol Direct HDL Cholesterol Arterial Blood Glucose Arterial Blood Ionized Calcium Urine WBC (Auto) 04/20/20 04/20/20 04/20/20 06:28 06:28 11:46 WBC RBC Hgb 10.2 L Hct 31.5 L MCV 82 L MCH 27 L RDW 17.1 H Plt Count 546 H Lymph % (Auto) 10.0 L [place] % (Auto) 9.8 H Lymph # (Auto) 1.1 L [place] # (Auto) 1.1 H Seg Neutrophils % 78.4 H Seg Neuts % (Manual) Lymphocytes % (Manual) Monocytes % (Manual) Basophils % (Manual) Seg Neutrophils # 8.5 H Seg Neutrophils # Man Lymphocytes # (Manual) Monocytes # (Manual) Eosinophils # (Manual) Basophils # (Manual) PT INR D-Dimer ABG pH POC ABG pCO2 POC ABG pO2 ABG pO2 ABG HCO3 ABG O2 Saturation ABG Base Excess ABG Hemoglobin ABG Oxyhemoglobin ABG Potassium ABG Glucose Oxyhemoglobin Carboxyhemoglobin Sodium Potassium Chloride 97.0 L Carbon Dioxide 38 H BUN Creatinine < 0.2 L Glucose 138 H POC Glucose 130 H Calcium Ferritin Total Bilirubin Alkaline Phosphatase Lactate Dehydrogenase Total Creatine Kinase CK-MB (CK-2) Rel Index Troponin T C-Reactive Protein Total Protein Albumin Prealbumin LDL Cholesterol Direct HDL Cholesterol Arterial Blood Glucose Arterial Blood Ionized Calcium Urine WBC (Auto) 04/20/20 04/21/20 04/21/20 23:31 05:55 05:55 WBC RBC Hgb 10.0 L Hct 31.1 L MCV 82 L MCH 26 L RDW 17.0 H Plt Count 535 H Lymph % (Auto) [place] % (Auto) 9.2 H Lymph # (Auto) 1.1 L [place] # (Auto) Seg Neutrophils % 75.4 H Seg Neuts % (Manual) Lymphocytes % (Manual) Monocytes % (Manual) Basophils % (Manual) Seg Neutrophils # Seg Neutrophils # Man Lymphocytes # (Manual) Monocytes # (Manual) Eosinophils # (Manual) Basophils # (Manual) PT INR D-Dimer ABG pH POC ABG pCO2 POC ABG pO2 ABG pO2 ABG HCO3 ABG O2 Saturation ABG Base Excess ABG Hemoglobin ABG Oxyhemoglobin ABG Potassium ABG Glucose Oxyhemoglobin Carboxyhemoglobin Sodium Potassium Chloride 95.0 L Carbon Dioxide 34 H BUN Creatinine < 0.2 L Glucose 125 H POC Glucose 116 H Calcium Ferritin Total Bilirubin Alkaline Phosphatase Lactate Dehydrogenase Total Creatine Kinase CK-MB (CK-2) Rel Index Troponin T C-Reactive Protein Total Protein Albumin Prealbumin LDL Cholesterol Direct HDL Cholesterol Arterial Blood Glucose Arterial Blood Ionized Calcium Urine WBC (Auto) 04/22/20 04/22/20 04/22/20 00:01 07:45 07:45 WBC RBC Hgb 10.0 L Hct 30.7 L MCV 81 L MCH 27 L RDW 17.1 H Plt Count 490 H Lymph % (Auto) [place] % (Auto) Lymph # (Auto) [place] # (Auto) Seg Neutrophils % Seg Neuts % (Manual) 75.0 H Lymphocytes % (Manual) 11.0 L Monocytes % (Manual) 9.0 H Basophils % (Manual) Seg Neutrophils # Seg Neutrophils # Man Lymphocytes # (Manual) 0.8 L Monocytes # (Manual) Eosinophils # (Manual) Basophils # (Manual) PT INR D-Dimer ABG pH POC ABG pCO2 POC ABG pO2 ABG pO2 ABG HCO3 ABG O2 Saturation ABG Base Excess ABG Hemoglobin ABG Oxyhemoglobin ABG Potassium ABG Glucose Oxyhemoglobin Carboxyhemoglobin Sodium Potassium Chloride 96.3 L Carbon Dioxide 40 H BUN Creatinine < 0.2 L Glucose 109 H POC Glucose 110 H Calcium Ferritin Total Bilirubin Alkaline Phosphatase Lactate Dehydrogenase Total Creatine Kinase CK-MB (CK-2) Rel Index Troponin T C-Reactive Protein Total Protein Albumin Prealbumin LDL Cholesterol Direct HDL Cholesterol Arterial Blood Glucose Arterial Blood Ionized Calcium Urine WBC (Auto) 04/23/20 04/23/20 04/23/20 04:28 04:28 04:28 WBC RBC 3.64 L Hgb 9.7 L Hct 29.4 L MCV 81 L MCH 27 L RDW 17.2 H Plt Count 527 H Lymph % (Auto) [place] % (Auto) 8.9 H Lymph # (Auto) [place] # (Auto) Seg Neutrophils % Seg Neuts % (Manual) Lymphocytes % (Manual) Monocytes % (Manual) Basophils % (Manual) Seg Neutrophils # Seg Neutrophils # Man Lymphocytes # (Manual) Monocytes # (Manual) Eosinophils # (Manual) Basophils # (Manual) PT INR D-Dimer ABG pH POC ABG pCO2 POC ABG pO2 ABG pO2 ABG HCO3 ABG O2 Saturation ABG Base Excess ABG Hemoglobin ABG Oxyhemoglobin ABG Potassium ABG Glucose Oxyhemoglobin Carboxyhemoglobin Sodium Potassium Chloride 96.4 L Carbon Dioxide 32 H D BUN Creatinine < 0.2 L Glucose 134 H POC Glucose Calcium Ferritin Total Bilirubin Alkaline Phosphatase Lactate Dehydrogenase Total Creatine Kinase CK-MB (CK-2) Rel Index Troponin T 0.151 H* C-Reactive Protein Total Protein Albumin Prealbumin LDL Cholesterol Direct HDL Cholesterol 29 L Arterial Blood Glucose Arterial Blood Ionized Calcium Urine WBC (Auto) 04/23/20 04/23/20 04/24/20 06:03 23:41 05:28 WBC RBC 3.56 L Hgb 9.5 L Hct 28.9 L MCV 81 L MCH 27 L RDW 17.4 H Plt Count 462 H Lymph % (Auto) [place] % (Auto) Lymph # (Auto) [place] # (Auto) Seg Neutrophils % Seg Neuts % (Manual) 80.0 H Lymphocytes % (Manual) Monocytes % (Manual) Basophils % (Manual) Seg Neutrophils # Seg Neutrophils # Man Lymphocytes # (Manual) Monocytes # (Manual) Eosinophils # (Manual) Basophils # (Manual) PT INR D-Dimer ABG pH POC ABG pCO2 POC ABG pO2 ABG pO2 ABG HCO3 ABG O2 Saturation ABG Base Excess ABG Hemoglobin ABG Oxyhemoglobin ABG Potassium ABG Glucose Oxyhemoglobin Carboxyhemoglobin Sodium Potassium Chloride Carbon Dioxide BUN Creatinine Glucose POC Glucose 132 H 117 H Calcium Ferritin Total Bilirubin Alkaline Phosphatase Lactate Dehydrogenase Total Creatine Kinase CK-MB (CK-2) Rel Index Troponin T C-Reactive Protein Total Protein Albumin Prealbumin LDL Cholesterol Direct HDL Cholesterol Arterial Blood Glucose Arterial Blood Ionized Calcium Urine WBC (Auto) 04/24/20 04/24/20 04/24/20 05:28 05:28 05:33 WBC RBC Hgb Hct MCV MCH RDW Plt Count Lymph % (Auto) [place] % (Auto) Lymph # (Auto) [place] # (Auto) Seg Neutrophils % Seg Neuts % (Manual) Lymphocytes % (Manual) Monocytes % (Manual) Basophils % (Manual) Seg Neutrophils # Seg Neutrophils # Man Lymphocytes # (Manual) Monocytes # (Manual) Eosinophils # (Manual) Basophils # (Manual) PT INR D-Dimer ABG pH POC ABG pCO2 POC ABG pO2 ABG pO2 ABG HCO3 ABG O2 Saturation ABG Base Excess ABG Hemoglobin ABG Oxyhemoglobin ABG Potassium ABG Glucose Oxyhemoglobin Carboxyhemoglobin Sodium Potassium Chloride 96.1 L Carbon Dioxide 40 H D BUN Creatinine < 0.2 L Glucose 115 H POC Glucose 109 H Calcium Ferritin Total Bilirubin Alkaline Phosphatase Lactate Dehydrogenase Total Creatine Kinase CK-MB (CK-2) Rel Index Troponin T 0.181 H* C-Reactive Protein Total Protein Albumin Prealbumin LDL Cholesterol Direct HDL Cholesterol Arterial Blood Glucose Arterial Blood Ionized Calcium Urine WBC (Auto) 04/24/20 04/24/20 04/25/20 11:17 18:23 00:12 WBC RBC Hgb Hct MCV MCH RDW Plt Count Lymph % (Auto) [place] % (Auto) Lymph # (Auto) [place] # (Auto) Seg Neutrophils % Seg Neuts % (Manual) Lymphocytes % (Manual) Monocytes % (Manual) Basophils % (Manual) Seg Neutrophils # Seg Neutrophils # Man Lymphocytes # (Manual) Monocytes # (Manual) Eosinophils # (Manual) Basophils # (Manual) PT INR D-Dimer ABG pH POC ABG pCO2 POC ABG pO2 ABG pO2 ABG HCO3 ABG O2 Saturation ABG Base Excess ABG Hemoglobin ABG Oxyhemoglobin ABG Potassium ABG Glucose Oxyhemoglobin Carboxyhemoglobin Sodium Potassium Chloride Carbon Dioxide BUN Creatinine Glucose POC Glucose 117 H 109 H 113 H Calcium Ferritin Total Bilirubin Alkaline Phosphatase Lactate Dehydrogenase Total Creatine Kinase CK-MB (CK-2) Rel Index Troponin T C-Reactive Protein Total Protein Albumin Prealbumin LDL Cholesterol Direct HDL Cholesterol Arterial Blood Glucose Arterial Blood Ionized Calcium Urine WBC (Auto) 04/25/20 04/25/20 04/25/20 06:34 06:34 11:28 WBC 11.7 H RBC Hgb 10.0 L Hct 31.7 L MCV 82 L MCH 26 L RDW 17.5 H Plt Count 564 H Lymph % (Auto) [place] % (Auto) Lymph # (Auto) [place] # (Auto) Seg Neutrophils % Seg Neuts % (Manual) 78.0 H Lymphocytes % (Manual) 10.0 L Monocytes % (Manual) 9.0 H Basophils % (Manual) Seg Neutrophils # Seg Neutrophils # Man 9.1 H Lymphocytes # (Manual) Monocytes # (Manual) 1.1 H Eosinophils # (Manual) Basophils # (Manual) PT INR D-Dimer ABG pH POC ABG pCO2 POC ABG pO2 ABG pO2 ABG HCO3 ABG O2 Saturation ABG Base Excess ABG Hemoglobin ABG Oxyhemoglobin ABG Potassium ABG Glucose Oxyhemoglobin Carboxyhemoglobin Sodium Potassium Chloride Carbon Dioxide 39 H BUN Creatinine < 0.2 L Glucose 103 H POC Glucose 112 H Calcium Ferritin Total Bilirubin Alkaline Phosphatase Lactate Dehydrogenase Total Creatine Kinase CK-MB (CK-2) Rel Index Troponin T C-Reactive Protein Total Protein Albumin Prealbumin LDL Cholesterol Direct HDL Cholesterol Arterial Blood Glucose Arterial Blood Ionized Calcium Urine WBC (Auto) 04/27/20 04/27/20 04/27/20 11:48 17:08 23:31 WBC RBC Hgb Hct MCV MCH RDW Plt Count Lymph % (Auto) [place] % (Auto) Lymph # (Auto) [place] # (Auto) Seg Neutrophils % Seg Neuts % (Manual) Lymphocytes % (Manual) Monocytes % (Manual) Basophils % (Manual) Seg Neutrophils # Seg Neutrophils # Man Lymphocytes # (Manual) Monocytes # (Manual) Eosinophils # (Manual) Basophils # (Manual) PT INR D-Dimer ABG pH POC ABG pCO2 POC ABG pO2 ABG pO2 ABG HCO3 ABG O2 Saturation ABG Base Excess ABG Hemoglobin ABG Oxyhemoglobin ABG Potassium ABG Glucose Oxyhemoglobin Carboxyhemoglobin Sodium Potassium Chloride Carbon Dioxide BUN Creatinine Glucose POC Glucose 124 H 118 H 122 H Calcium Ferritin Total Bilirubin Alkaline Phosphatase Lactate Dehydrogenase Total Creatine Kinase CK-MB (CK-2) Rel Index Troponin T C-Reactive Protein Total Protein Albumin Prealbumin LDL Cholesterol Direct HDL Cholesterol Arterial Blood Glucose Arterial Blood Ionized Calcium Urine WBC (Auto) 04/28/20 04/29/20 04/29/20 05:42 00:14 05:30 WBC RBC Hgb Hct MCV MCH RDW Plt Count Lymph % (Auto) [place] % (Auto) Lymph # (Auto) [place] # (Auto) Seg Neutrophils % Seg Neuts % (Manual) Lymphocytes % (Manual) Monocytes % (Manual) Basophils % (Manual) Seg Neutrophils # Seg Neutrophils # Man Lymphocytes # (Manual) Monocytes # (Manual) Eosinophils # (Manual) Basophils # (Manual) PT INR D-Dimer ABG pH POC ABG pCO2 POC ABG pO2 ABG pO2 ABG HCO3 ABG O2 Saturation ABG Base Excess ABG Hemoglobin ABG Oxyhemoglobin ABG Potassium ABG Glucose Oxyhemoglobin Carboxyhemoglobin Sodium Potassium Chloride Carbon Dioxide BUN Creatinine Glucose POC Glucose 122 H 115 H 123 H Calcium Ferritin Total Bilirubin Alkaline Phosphatase Lactate Dehydrogenase Total Creatine Kinase CK-MB (CK-2) Rel Index Troponin T C-Reactive Protein Total Protein Albumin Prealbumin LDL Cholesterol Direct HDL Cholesterol Arterial Blood Glucose Arterial Blood Ionized Calcium Urine WBC (Auto) 04/30/20 05/01/20 05/01/20 00:29 05:39 12:30 WBC RBC Hgb Hct MCV MCH RDW Plt Count Lymph % (Auto) [place] % (Auto) Lymph # (Auto) [place] # (Auto) Seg Neutrophils % Seg Neuts % (Manual) Lymphocytes % (Manual) Monocytes % (Manual) Basophils % (Manual) Seg Neutrophils # Seg Neutrophils # Man Lymphocytes # (Manual) Monocytes # (Manual) Eosinophils # (Manual) Basophils # (Manual) PT INR D-Dimer ABG pH POC ABG pCO2 POC ABG pO2 ABG pO2 ABG HCO3 ABG O2 Saturation ABG Base Excess ABG Hemoglobin ABG Oxyhemoglobin ABG Potassium ABG Glucose Oxyhemoglobin Carboxyhemoglobin Sodium Potassium Chloride Carbon Dioxide BUN Creatinine Glucose POC Glucose 106 H 109 H 108 H Calcium Ferritin Total Bilirubin Alkaline Phosphatase Lactate Dehydrogenase Total Creatine Kinase CK-MB (CK-2) Rel Index Troponin T C-Reactive Protein Total Protein Albumin Prealbumin LDL Cholesterol Direct HDL Cholesterol Arterial Blood Glucose Arterial Blood Ionized Calcium Urine WBC (Auto) 05/01/20 05/03/20 05/03/20 23:35 05:09 11:36 WBC RBC Hgb Hct MCV MCH RDW Plt Count Lymph % (Auto) [place] % (Auto) Lymph # (Auto) [place] # (Auto) Seg Neutrophils % Seg Neuts % (Manual) Lymphocytes % (Manual) Monocytes % (Manual) Basophils % (Manual) Seg Neutrophils # Seg Neutrophils # Man Lymphocytes # (Manual) Monocytes # (Manual) Eosinophils # (Manual) Basophils # (Manual) PT INR D-Dimer ABG pH POC ABG pCO2 POC ABG pO2 ABG pO2 ABG HCO3 ABG O2 Saturation ABG Base Excess ABG Hemoglobin ABG Oxyhemoglobin ABG Potassium ABG Glucose Oxyhemoglobin Carboxyhemoglobin Sodium Potassium Chloride Carbon Dioxide BUN Creatinine Glucose POC Glucose 116 H 117 H 116 H Calcium Ferritin Total Bilirubin Alkaline Phosphatase Lactate Dehydrogenase Total Creatine Kinase CK-MB (CK-2) Rel Index Troponin T C-Reactive Protein Total Protein Albumin Prealbumin LDL Cholesterol Direct HDL Cholesterol Arterial Blood Glucose Arterial Blood Ionized Calcium Urine WBC (Auto) 05/03/20 05/03/20 05/03/20 14:06 14:06 23:39 WBC 12.5 H RBC Hgb 10.0 L Hct 31.2 L MCV 80 L MCH 26 L RDW 17.6 H Plt Count 488 H Lymph % (Auto) [place] % (Auto) Lymph # (Auto) [place] # (Auto) Seg Neutrophils % Seg Neuts % (Manual) Lymphocytes % (Manual) Monocytes % (Manual) Basophils % (Manual) Seg Neutrophils # Seg Neutrophils # Man Lymphocytes # (Manual) Monocytes # (Manual) Eosinophils # (Manual) Basophils # (Manual) PT INR D-Dimer ABG pH POC ABG pCO2 POC ABG pO2 ABG pO2 ABG HCO3 ABG O2 Saturation ABG Base Excess ABG Hemoglobin ABG Oxyhemoglobin ABG Potassium ABG Glucose Oxyhemoglobin Carboxyhemoglobin Sodium Potassium Chloride 95.4 L Carbon Dioxide 40 H BUN Creatinine < 0.2 L Glucose 121 H POC Glucose 107 H Calcium Ferritin Total Bilirubin Alkaline Phosphatase Lactate Dehydrogenase Total Creatine Kinase CK-MB (CK-2) Rel Index Troponin T C-Reactive Protein Total Protein Albumin Prealbumin LDL Cholesterol Direct HDL Cholesterol Arterial Blood Glucose Arterial Blood Ionized Calcium Urine WBC (Auto) 05/04/20 05/04/20 05/04/20 11:31 16:57 23:18 WBC RBC Hgb Hct MCV MCH RDW Plt Count Lymph % (Auto) [place] % (Auto) Lymph # (Auto) [place] # (Auto) Seg Neutrophils % Seg Neuts % (Manual) Lymphocytes % (Manual) Monocytes % (Manual) Basophils % (Manual) Seg Neutrophils # Seg Neutrophils # Man Lymphocytes # (Manual) Monocytes # (Manual) Eosinophils # (Manual) Basophils # (Manual) PT INR D-Dimer ABG pH POC ABG pCO2 POC ABG pO2 ABG pO2 ABG HCO3 ABG O2 Saturation ABG Base Excess ABG Hemoglobin ABG Oxyhemoglobin ABG Potassium ABG Glucose Oxyhemoglobin Carboxyhemoglobin Sodium Potassium Chloride Carbon Dioxide BUN Creatinine Glucose POC Glucose 113 H 126 H 126 H Calcium Ferritin Total Bilirubin Alkaline Phosphatase Lactate Dehydrogenase Total Creatine Kinase CK-MB (CK-2) Rel Index Troponin T C-Reactive Protein Total Protein Albumin Prealbumin LDL Cholesterol Direct HDL Cholesterol Arterial Blood Glucose Arterial Blood Ionized Calcium Urine WBC (Auto) 05/05/20 05/05/20 05/05/20 05:32 11:11 23:57 WBC RBC Hgb Hct MCV MCH RDW Plt Count Lymph % (Auto) [place] % (Auto) Lymph # (Auto) [place] # (Auto) Seg Neutrophils % Seg Neuts % (Manual) Lymphocytes % (Manual) Monocytes % (Manual) Basophils % (Manual) Seg Neutrophils # Seg Neutrophils # Man Lymphocytes # (Manual) Monocytes # (Manual) Eosinophils # (Manual) Basophils # (Manual) PT INR D-Dimer ABG pH POC ABG pCO2 POC ABG pO2 ABG pO2 ABG HCO3 ABG O2 Saturation ABG Base Excess ABG Hemoglobin ABG Oxyhemoglobin ABG Potassium ABG Glucose Oxyhemoglobin Carboxyhemoglobin Sodium Potassium Chloride Carbon Dioxide BUN Creatinine Glucose POC Glucose 109 H 124 H 119 H Calcium Ferritin Total Bilirubin Alkaline Phosphatase Lactate Dehydrogenase Total Creatine Kinase CK-MB (CK-2) Rel Index Troponin T C-Reactive Protein Total Protein Albumin Prealbumin LDL Cholesterol Direct HDL Cholesterol Arterial Blood Glucose Arterial Blood Ionized Calcium Urine WBC (Auto) 05/06/20 05/06/20 05/07/20 05:34 23:08 04:43 WBC RBC Hgb 10.1 L Hct 31.9 L MCV 81 L MCH 25 L RDW 17.6 H Plt Count 506 H Lymph % (Auto) [place] % (Auto) 8.6 H Lymph # (Auto) [place] # (Auto) 0.9 H Seg Neutrophils % Seg Neuts % (Manual) Lymphocytes % (Manual) Monocytes % (Manual) Basophils % (Manual) Seg Neutrophils # Seg Neutrophils # Man Lymphocytes # (Manual) Monocytes # (Manual) Eosinophils # (Manual) Basophils # (Manual) PT INR D-Dimer ABG pH POC ABG pCO2 POC ABG pO2 ABG pO2 ABG HCO3 ABG O2 Saturation ABG Base Excess ABG Hemoglobin ABG Oxyhemoglobin ABG Potassium ABG Glucose Oxyhemoglobin Carboxyhemoglobin Sodium Potassium Chloride Carbon Dioxide BUN Creatinine Glucose POC Glucose 121 H 107 H Calcium Ferritin Total Bilirubin Alkaline Phosphatase Lactate Dehydrogenase Total Creatine Kinase CK-MB (CK-2) Rel Index Troponin T C-Reactive Protein Total Protein Albumin Prealbumin LDL Cholesterol Direct HDL Cholesterol Arterial Blood Glucose Arterial Blood Ionized Calcium Urine WBC (Auto) 05/07/20 05/07/20 05/07/20 06:18 17:13 23:29 WBC RBC Hgb Hct MCV MCH RDW Plt Count Lymph % (Auto) [place] % (Auto) Lymph # (Auto) [place] # (Auto) Seg Neutrophils % Seg Neuts % (Manual) Lymphocytes % (Manual) Monocytes % (Manual) Basophils % (Manual) Seg Neutrophils # Seg Neutrophils # Man Lymphocytes # (Manual) Monocytes # (Manual) Eosinophils # (Manual) Basophils # (Manual) PT INR D-Dimer ABG pH POC ABG pCO2 POC ABG pO2 ABG pO2 ABG HCO3 ABG O2 Saturation ABG Base Excess ABG Hemoglobin ABG Oxyhemoglobin ABG Potassium ABG Glucose Oxyhemoglobin Carboxyhemoglobin Sodium Potassium Chloride Carbon Dioxide BUN Creatinine Glucose POC Glucose 121 H 122 H 114 H Calcium Ferritin Total Bilirubin Alkaline Phosphatase Lactate Dehydrogenase Total Creatine Kinase CK-MB (CK-2) Rel Index Troponin T C-Reactive Protein Total Protein Albumin Prealbumin LDL Cholesterol Direct HDL Cholesterol Arterial Blood Glucose Arterial Blood Ionized Calcium Urine WBC (Auto) 05/08/20 05/08/20 05/08/20 05:20 11:57 23:42 WBC RBC Hgb Hct MCV MCH RDW Plt Count Lymph % (Auto) [place] % (Auto) Lymph # (Auto) [place] # (Auto) Seg Neutrophils % Seg Neuts % (Manual) Lymphocytes % (Manual) Monocytes % (Manual) Basophils % (Manual) Seg Neutrophils # Seg Neutrophils # Man Lymphocytes # (Manual) Monocytes # (Manual) Eosinophils # (Manual) Basophils # (Manual) PT INR D-Dimer ABG pH POC ABG pCO2 POC ABG pO2 ABG pO2 ABG HCO3 ABG O2 Saturation ABG Base Excess ABG Hemoglobin ABG Oxyhemoglobin ABG Potassium ABG Glucose Oxyhemoglobin Carboxyhemoglobin Sodium Potassium Chloride Carbon Dioxide BUN Creatinine Glucose POC Glucose 121 H 113 H 135 H Calcium Ferritin Total Bilirubin Alkaline Phosphatase Lactate Dehydrogenase Total Creatine Kinase CK-MB (CK-2) Rel Index Troponin T C-Reactive Protein Total Protein Albumin Prealbumin LDL Cholesterol Direct HDL Cholesterol Arterial Blood Glucose Arterial Blood Ionized Calcium Urine WBC (Auto) 05/09/20 05/09/20 05/09/20 05:31 11:11 16:06 WBC RBC Hgb Hct MCV MCH RDW Plt Count Lymph % (Auto) [place] % (Auto) Lymph # (Auto) [place] # (Auto) Seg Neutrophils % Seg Neuts % (Manual) Lymphocytes % (Manual) Monocytes % (Manual) Basophils % (Manual) Seg Neutrophils # Seg Neutrophils # Man Lymphocytes # (Manual) Monocytes # (Manual) Eosinophils # (Manual) Basophils # (Manual) PT INR D-Dimer ABG pH POC ABG pCO2 POC ABG pO2 ABG pO2 ABG HCO3 ABG O2 Saturation ABG Base Excess ABG Hemoglobin ABG Oxyhemoglobin ABG Potassium ABG Glucose Oxyhemoglobin Carboxyhemoglobin Sodium 136 L Potassium Chloride 97.0 L Carbon Dioxide 34 H BUN Creatinine < 0.2 L Glucose 107 H POC Glucose 66 L 127 H Calcium Ferritin Total Bilirubin Alkaline Phosphatase Lactate Dehydrogenase Total Creatine Kinase CK-MB (CK-2) Rel Index Troponin T C-Reactive Protein Total Protein Albumin Prealbumin LDL Cholesterol Direct HDL Cholesterol Arterial Blood Glucose Arterial Blood Ionized Calcium Urine WBC (Auto) 05/09/20 05/10/20 05/10/20 23:19 04:59 11:28 WBC RBC Hgb Hct MCV MCH RDW Plt Count Lymph % (Auto) [place] % (Auto) Lymph # (Auto) [place] # (Auto) Seg Neutrophils % Seg Neuts % (Manual) Lymphocytes % (Manual) Monocytes % (Manual) Basophils % (Manual) Seg Neutrophils # Seg Neutrophils # Man Lymphocytes # (Manual) Monocytes # (Manual) Eosinophils # (Manual) Basophils # (Manual) PT INR D-Dimer ABG pH POC ABG pCO2 POC ABG pO2 ABG pO2 ABG HCO3 ABG O2 Saturation ABG Base Excess ABG Hemoglobin ABG Oxyhemoglobin ABG Potassium ABG Glucose Oxyhemoglobin Carboxyhemoglobin Sodium Potassium Chloride Carbon Dioxide BUN Creatinine Glucose POC Glucose 108 H 126 H 124 H Calcium Ferritin Total Bilirubin Alkaline Phosphatase Lactate Dehydrogenase Total Creatine Kinase CK-MB (CK-2) Rel Index Troponin T C-Reactive Protein Total Protein Albumin Prealbumin LDL Cholesterol Direct HDL Cholesterol Arterial Blood Glucose Arterial Blood Ionized Calcium Urine WBC (Auto) 05/10/20 05/11/20 05/11/20 23:56 06:13 11:44 WBC RBC Hgb Hct MCV MCH RDW Plt Count Lymph % (Auto) [place] % (Auto) Lymph # (Auto) [place] # (Auto) Seg Neutrophils % Seg Neuts % (Manual) Lymphocytes % (Manual) Monocytes % (Manual) Basophils % (Manual) Seg Neutrophils # Seg Neutrophils # Man Lymphocytes # (Manual) Monocytes # (Manual) Eosinophils # (Manual) Basophils # (Manual) PT INR D-Dimer ABG pH POC ABG pCO2 POC ABG pO2 ABG pO2 ABG HCO3 ABG O2 Saturation ABG Base Excess ABG Hemoglobin ABG Oxyhemoglobin ABG Potassium ABG Glucose Oxyhemoglobin Carboxyhemoglobin Sodium Potassium Chloride Carbon Dioxide BUN Creatinine Glucose POC Glucose 113 H 124 H 125 H Calcium Ferritin Total Bilirubin Alkaline Phosphatase Lactate Dehydrogenase Total Creatine Kinase CK-MB (CK-2) Rel Index Troponin T C-Reactive Protein Total Protein Albumin Prealbumin LDL Cholesterol Direct HDL Cholesterol Arterial Blood Glucose Arterial Blood Ionized Calcium Urine WBC (Auto) 05/12/20 05/12/20 05/12/20 06:04 12:17 17:23 WBC RBC Hgb Hct MCV MCH RDW Plt Count Lymph % (Auto) [place] % (Auto) Lymph # (Auto) [place] # (Auto) Seg Neutrophils % Seg Neuts % (Manual) Lymphocytes % (Manual) Monocytes % (Manual) Basophils % (Manual) Seg Neutrophils # Seg Neutrophils # Man Lymphocytes # (Manual) Monocytes # (Manual) Eosinophils # (Manual) Basophils # (Manual) PT INR D-Dimer ABG pH POC ABG pCO2 POC ABG pO2 ABG pO2 ABG HCO3 ABG O2 Saturation ABG Base Excess ABG Hemoglobin ABG Oxyhemoglobin ABG Potassium ABG Glucose Oxyhemoglobin Carboxyhemoglobin Sodium Potassium Chloride Carbon Dioxide BUN Creatinine Glucose POC Glucose 135 H 136 H 133 H Calcium Ferritin Total Bilirubin Alkaline Phosphatase Lactate Dehydrogenase Total Creatine Kinase CK-MB (CK-2) Rel Index Troponin T C-Reactive Protein Total Protein Albumin Prealbumin LDL Cholesterol Direct HDL Cholesterol Arterial Blood Glucose Arterial Blood Ionized Calcium Urine WBC (Auto) 05/12/20 05/13/20 05/13/20 23:34 05:36 11:25 WBC RBC Hgb Hct MCV MCH RDW Plt Count Lymph % (Auto) [place] % (Auto) Lymph # (Auto) [place] # (Auto) Seg Neutrophils % Seg Neuts % (Manual) Lymphocytes % (Manual) Monocytes % (Manual) Basophils % (Manual) Seg Neutrophils # Seg Neutrophils # Man Lymphocytes # (Manual) Monocytes # (Manual) Eosinophils # (Manual) Basophils # (Manual) PT INR D-Dimer ABG pH POC ABG pCO2 POC ABG pO2 ABG pO2 ABG HCO3 ABG O2 Saturation ABG Base Excess ABG Hemoglobin ABG Oxyhemoglobin ABG Potassium ABG Glucose Oxyhemoglobin Carboxyhemoglobin Sodium Potassium Chloride Carbon Dioxide BUN Creatinine Glucose POC Glucose 141 H 131 H 148 H Calcium Ferritin Total Bilirubin Alkaline Phosphatase Lactate Dehydrogenase Total Creatine Kinase CK-MB (CK-2) Rel Index Troponin T C-Reactive Protein Total Protein Albumin Prealbumin LDL Cholesterol Direct HDL Cholesterol Arterial Blood Glucose Arterial Blood Ionized Calcium Urine WBC (Auto) Chest x-ray: other (none today) Allied health notes reviewed: nursing
[2020-05-13] MEDS: SENNOSIDES 8.6 MG TAB PO SCH (22:17)
[2020-05-13] MEDS: MAGNESIUM HYDROXIDE (MOM) ORAL LIQD UDC PO PRN (22:17)
[2020-05-13] MEDS: ENOXAPARIN 40 MG/0.4 ML INJ SUB-Q SCH (22:18)
[2020-05-13] MEDS: ZOLPIDEM 5 MG TAB PO PRN (22:50)
[2020-05-14] MEDS: D5W/0.9% NACL 1,000 ML IV SCH ×2 (02:19→23:28)
[2020-05-14] MEDS: MAGNESIUM HYDROXIDE (MOM) ORAL LIQD UDC PO PRN ×2 (04:48→21:18)
[2020-05-14] MEDS: MORPHINE 2 MG/1 ML INJ IV PRN ×3 (04:48→21:14)
[2020-05-14] MEDS: ALPRAZolam 0.5 MG TAB PO PRN ×2 (06:39→21:18)
[2020-05-14] MEDS: traMADol 50 MG TAB PO PRN (06:39)
--- NOTE | 2020-05-14 09:58 | Progress Note ---
Assessment and Plan Assessment and plan: --Acute hypoxic hypercapnic respiratory failure; Intubated on mechanical ventilation. Etiology secondary to sepsis, ALS, multifocal pneumonia (Covid negative). S/p trach placement 03/07/20 --Status post cardiac arrest on 02/25, cardiac hernandez now stable --Dysphagia, status post PEG placement for tube feeding --ALS; Chronic Continue to provide supportive care --Elevated D-dimers; CTA chest, lower extremity venous Doppler both are negative Lovenox for DVT prophylaxis --Bilateral pneumonia; probably community-acquired Completed treatment ID recommendations appreciated --Sepsis secondary to pneumonia s/p empiric antibiotic --Elevated troponin; Serial cardiac enzymes, serial EKGs Echocardiogram, cardiology consult if needed --Hypernatremia Trend sodium Free water via feeding tube --Abdominal distention due to bladder outlet obstruction, resolved CT abdomen showed bladder outlet obstruction, urology consulted s/p drake placement by urology on 03/09 --Hypotension possibly from septic shock and bladder outlet obstruction improved following placing drake --Hypernatremia due to hypovolumia, resolved free water with TF --Constipation; Patient already received Dulcolax suppository and Colace Received milk of magnesia, with relief --DVT prophylaxis; Lovenox Brief history: 59-year-old male patient with significant past medical history of ALS, presented to ED with worsening shortness of breath since the morning [employer]. Patient was on a trilogy machine for breathing 18/11. EMS arrived, patient had O2 sats in the 80s. EMS attempted to place patient on their CPAP machine, however patient did not tolerate. Patient was admitted to the ICU with diagnosis of acute hypoxic respiratory failure and placed on BiPAP. Patient initially tolerated but later deteriorated with respiratory status. CTA chest showed no PE but significant for bilateral pneumonia. Doppler ultrasound also negative for DVT. COVID-19 test ordered and negative. Due to persistent hypoxia and asystolic/V. fib cardiac arrest, patient was intubated on 02/26/2020 at 1500. Patient now on mechanical ventilation in the ICU s/p trach placement and now unable to wean off from the mechanical ventilation. Patient now status post PEG placement for tube feeding. Patient most likely need long-term placement -LTAC versus SNF Daily course: 02/25/2020. CTA of the chest reveals no PE but does illustrate the bilateral pneumonia. Doppler ultrasound also negative for DVT. Blood cultures are pending. Await COVID-19 testing. Patient currently requiring BiPAP IPAP 24/EPAP 6 with FiO2 of 25%. Continue O2 and BiPAP as clinically indicated. ID and pulmonary consulted. 02/26/2020. Blood cultures are negative x48 hours and Covid testing negative as well. Continue antibiotics per ID recommendations for community-acquired bilateral pneumonia. Cardiology consultation for elevated troponin. Check echocardiogram. 02/27/2020. Events of yesterday noted with asystole following V. fib arrest. Patient currently on AC mode rate 20, tidal volume 400, FiO2 50% and a PEEP of 6. Follow-up echocardiogram for elevated troponin. Cardiology suspects NSTEMI Type 2 in the setting of acute resp failure. Chest CTA and BLE Dopplers neg. we will discontinue Decadron given the Covid PCR is negative. 02/28/2020. I spoke with the sister Felisa Eli who is the power of trust and estates attorney regarding advanced directives and she instructed me that she would like to continue with aggressive care at this time. I informed her of the guarded prognosis and high mortality/morbidity and she voiced understanding. Patient currently with AC mode ventilation rate 18, tidal volume 400, FiO2 40% and a PEEP of 6. Continue antibiotics for pneumonia. ID previously consulted. Also consult neurology with regards to ALS. 02/29/2020; patient is intubated and on CPAP patient is alert and oriented. Patient has ALS. Dr. Álvarez spoke with his sister and she wants aggressive care. Continue antibiotics for pneumonia. Neurology consulted for ALS. Prognosis poor 03/01/2020; patient is intubated and on CPAP, patient is alert and oriented. I spoke with his 2 sisters about the management plan. 03/02/2020; patient is intubated and on CPAP. Patient was alert and oriented. I spoke with Dr. mohr and he thinks patient may need mechanical ventilation, likely his disease progressed. Dr. Flowers did debridement this morning. 03/03/2020; patient is intubated and on CPAP, patient was on trilogy and BiPAP at home. Patient has ALS. on spontaneous breathing trial. Patient is alert and oriented but quadriplegic. Patient has severe bilateral pneumonia and is on cefepime and Vanco, ID is following. Patient has sacral decubitus ulcer and debridement was done by Dr. Flowers and there is no osteomyelitis. 03/05. Patient still on broad-spectrum antibiotics. Status post sacral decubitus ulcer debridements-no osteomyelitis. Patient is on AC 25/400/30% PEEP 5. No blood gas results today. 03/06. Plan for tracheostomy by surgery. Still remains intubated. Labs review ed-sodium 150. Started on free water 200 every 8hr. trend sodium. 03/07: s/p trach placement today, patient placed back on mechanical ventilation with trach. Plan to resume tube feeding with NG tube. Continue to monitor vitals, monitor BMP. 03/08: Patient noted to have distended abdomen with low urinary output. Obtain bladder scan rule out urine retention, UA and urine culture, continue to follow clinically. 03/09: Patient noted to have low blood pressure with SBP as low as 70s. Ordered for 500 mils normal saline bolus. CT abdomen showed bladder outlet obstruction, urology consulted. 03/10: placed on drake by urology o/n, improved urine outpt. cont to monitor BMP. resuded TF - cont free water with TF. wean off from vent as tolerated. 03/11: Vitals stable. cont TF, wean off from vent as tolerated. start on 1/2 NS for hypernatremia - follow BMP 03/12: wean off vent as tolerated, plan for speech eval, cont Tf for now, cont iv fluid 03/13: unable to wean off from vent, unable to do speech therapy eval. will need PEG tube, cont supportive care for now, cont NG tube feeding 03/14: consulted GI for PEg placemnet, cont supportive care. remains on vent at night 03/15: Discussed with GI, plan for PEG tube placement possibly tomorrow. Continue supportive care and wean off from vent as tolerated. Hold Lovenox dose tonight. 03/16: family didnot consent for PEG placement yesterday. I spoke with the daughter today and she is now agreeable for PEG tube. I explained the necessity of the procedure with RN to the patient also and he nodded started on tube feeding, for the procedure. will cont supportive care. planned for PEG tube placement tomorrow. 03/17: s/p PEG placement today, patient tolerated well, cont supportive care 03/18: Started on tube feeding with new PEG tube, continue to wean off vent as tolerated 03/19: cont to monitor with supportive care, wean off vent as tolerated 03/20: Continue to wean off vent as tolerated -but failing weaning trial. Still requiring vent support at night. Currently on PEG tube for tube feed. 03/21. Pt with PSV trials with FiO@ 30%, PEEP 6, PS 10. Currently on PEG tube for tube feed. 03/22/2020. Continue PSV trials per pulmonary. Continue bronchodilators. Patient tolerating tube feedings. Continue Robinul for secretion control. 03/23/2020. Continue PSV trials per pulmonary. Continue bronchodilators. Continue Scopolamine and Robinul for secretion control. Trach care/airway management. Mobility protocols for pressure ulcer prophylaxis. LTAC evaluation per case management 03/24/2020. Continue PSV trials with current settings pressure support 10, PEEP 6 and FiO2 30%. Continue bronchodilators/nebulizer. Continue Scopolamine and Robinul for secretion control. Trach care/airway management. Mobility protocols for pressure ulcer prophylaxis. LTAC evaluation per case management 03/25/2020. Pulmonary to proceed with T-piece trials today. Continue bronchodilators/nebulizer. Continue Scopolamine and Robinul for secretion control. Trach care/airway management. Mobility protocols for pressure ulcer prophylaxis. 03/26/2020. Patient currently with PSV 10/6 at FiO2 of 30%. Continue weaning and T-piece trials per protocol. Continue bronchodilators/nebulizer. Continue Scopolamine and Robinul for secretion control. Trach care/airway management. Mobility protocols for pressure ulcer prophylaxis. Continue tube feeding with aspiration precautions. 03/27/2020. Patient currently with PSV 10/6 at FiO2 of 30%. Continue weaning and T-piece trials per protocol. Continue bronchodilators/nebulizer. Continue Scopolamine and Robinul for secretion control. Trach care/airway management. Mobility protocols for pressure ulcer prophylaxis. Continue tube feeding with aspiration precautions. 03/28. Had temp 100.7F. He has been off antibiotics. Will send blood culture, ua, urine culture and chest xray. Had chest pain overnight and trop was elevated as well. Cardiology to evaluate 03/29. Has back pain due to position. He mentions his chest pain is positional. Has no other complaints. Still on mechanical ventilation 03/30. No chest pain today. Labs reviewed. Discussed chest pain with cardiology and team advised no further work up at this time. Can follow up with cardiology in the office after hospitalization 03/31. Lidocaine patch for lower back pain. 04/01. Discharge planning underway. CM notes reviewed. Discussed with daughter 04/02. CM trying to arrange discharge. Continue PSV trials. Discussed with patients significant other 04/04/2020; CM is working for discharge arrangement. Continue PSV trials. 04/05/2020; patient was seen and evaluated this morning and no change from baseline. Continue with PSV trials. Follow with molder labels for discharge planning. 04/06/2020;patient was seen and evaluated this morning and no change from baseline. Continue with PSV trials. Follow with molder labels for discharge planning. 04/07/2020; patient was seen and evaluated this morning and no change from baseline. Continue with PSV trials. Follow with molder labels for discharge planning. 04/08/2020; patient is vent dependent. Discharge is per molder labels. 04/09/2020 patient is vent dependent, possible LTAC placement 04/10/2020; tracheostomy on vent, vent dependent pending LTAC placement 04/11/2020; clinically no change, tracheostomy on ventilatory support, wean as tolerated, awaiting placement 04/12/2020; remains on ventilatory support, unable to wean, patient wants to see a speech therapist for sound box However we cannot try that as long as he is on ventilatory support, once he is weaned off vent We will consult speech therapist, plan of care reviewed with the patient and his nurse 04/14/2020; clinically no change, on ventilatory support, complains of constipation, milk of magnesia Closely monitor the patient and adjust the management as needed 04/15/2020; patient has some oral thrush on the tongue, will give Magic mouthwash/nystatin swish and spit Wean off vent as tolerated 04/16 patient is alert and oriented, unable to comprehend what he is trying to tell but appears to complain of some pain, no acute events overnight, all int erdisciplinary notes reviewed. Waiting for LTAC versus snf facility placement 04/17/2020. Continue supportive care with mechanical ventilation. Patient currently on AC mode rate 10, tidal volume 400 FiO2 30% with a PEEP of 6. Discharge planning per case management. 04/18/2020. Patient remains on mechanical ventilation AC mode rate 10, tidal volume 400, FiO2 30% and PEEP of 6. Continue spontaneous breathing trials as tolerated. Previously, patient was considered for discharge home with skilled staff providing care for 12 hours 7 days/week. Continue discussed with case management discharge planning. 04/19/20. Patient remains on mechanical ventilation AC mode rate 10, tidal volume 400, FiO2 30% and PEEP of 6. Continue spontaneous breathing trials as tolerated. 04/20/2020. Patient remains on mechanical ventilation AC mode rate 10, tidal volume 400, FiO2 30% and PEEP of 6. Continue spontaneous breathing trials as tolerated. 04/21/2020. Patient remains on mechanical ventilation AC mode rate 10, tidal volume 400, FiO2 30% and PEEP of 6. Continue tracheostomy care, secretion control and airway management. Continue spontaneous breathing trials as tolerated. 04/22/2020. Patient remains on mechanical ventilation AC mode rate 10, tidal volume 400, FiO2 30% and PEEP of 6. Continue tracheostomy care, secretion control and airway management. Continue spontaneous breathing trials as tolerated. 04/23/2020. Patient on mechanical ventilation AC mode rate 18, tidal volume 450, FiO2 30% and PEEP of 6. Continue tracheostomy care, secretion control and airway management. Continue spontaneous breathing trials as tolerated. Continue Robinul and scopolamine for secretions. Continue baclofen. 04/24/2020. Patient remains on AC mode ventilation rate 10, tidal volume 400, FiO2 30% and PEEP of 6. Continue tracheostomy care, secretion control and airway management. Continue spontaneous breathing trials as tolerated. Continue Robinul and scopolamine for secretions. Continue baclofen. Continue Xanax for anxiety and Ambien for sleep. Await case management follow-up with regards to discharge planning. 04/25/2020. Patient remains on AC mode ventilation rate 10, tidal volume 400, FiO2 30% and PEEP of 6. Continue tracheostomy care, secretion control and airway management. Continue spontaneous breathing trials as tolerated. Continue Robinul and scopolamine for secretions. Continue baclofen. Continue Xanax for anxiety and Ambien for sleep. Await case management follow-up with regards to discharge planning. 04/26. Patient remains on AC mode ventilation rate 10, tidal volume 400, FiO2 30% and PEEP of 6. Continue tracheostomy care, secretion control and airway management. Continue spontaneous breathing trials as tolerated. Continue Robinul and scopolamine for secretions. Continue baclofen. Continue Xanax for anxiety and Ambien for sleep. Await case management follow-up with regards to discharge planning. 04/27. Patient remains on AC mode ventilation rate 10, tidal volume 400, FiO2 30% and PEEP of 6. Continue tracheostomy care, secretion control and airway management. Continue spontaneous breathing trials as tolerated. Continue Robinul and scopolamine for secretions. Continue baclofen. Continue Xanax for anxiety and Ambien for sleep. Await case management follow-up with regards to discharge planning. 04/28/20 no acute events overnight, remains vent dependent, cardiology and pulmonary notes reviewed 04/29 remains intubated via tracheostomy, no acute events 04/30 no acute events overnight, cardiology note reviewed, remains vent dependent, discharge planning per case management 05/01 stable. cardiology and pulmonary notes reviewed. D/C acu-checks 05/02 - todate: Clinically stable, CM working on placement. Continue supportive care. 05/12; patient is stable. Continue supportive care. 05/13; patient is stable and no change from baseline. Continue supportive care. Follow with case management for discharge planning. 05/14;patient is stable and no change from baseline. Continue supportive care. Follow with case management for discharge planning. History Interval history: Patient was seen and evaluated this morning Patient is intubated, on trach Patient is awake Hospitalist Physical - Physical exam Narrative exam: Intubated, on a trach The patient appeared well nourished and normally developed. Vital signs as documented. Head exam is unremarkable. No scleral icterus . Neck is without jugular venous distension, thyromegaly, or carotid bruits. Lungs are clear to auscultation. Cardiac exam reveals regular rate and Rhythm. Abdominal exam reveals normal bowel sounds, nontender, no organomegaly. Extremities are nonedematous and both femoral and pedal pulses are normal. [employer]:awake. 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 - Constitutional Vitals: Temp Pulse Resp BP Pulse Ox 97.9 F 108 H 28 H 147/97 94 05/14/20 03:50 05/14/20 06:00 05/14/20 06:39 05/14/20 06:00 05/14/20 06:00 General appearance: Present: no acute distress, cachectic, disheveled, other (Cachectic, tracheostomy on vent) HEART Score - HEART Score Troponin: Troponin T 0.181 ng/mL (0.00-0.029) H* 04/24/20 05:28 Results - Labs CBC & Chem 7: 05/07/20 04:43 05/09/20 16:06 Labs: Laboratory Last Values WBC 10.1 K/mm3 (4.5-11.0) 05/07/20 04:43 RBC 3.97 M/mm3 (3.65-5.03) 05/07/20 04:43 Hgb 10.1 gm/dl (11.8-15.2) L 05/07/20 04:43 Hct 31.9 % (35.5-45.6) L 05/07/20 04:43 MCV 81 fl (84-94) L 05/07/20 04:43 MCH 25 pg (28-32) L 05/07/20 04:43 MCHC 32 % (32-34) 05/07/20 04:43 RDW 17.6 % (13.2-15.2) H 05/07/20 04:43 Plt Count 506 K/mm3 (140-440) H 05/07/20 04:43 Lymph % (Auto) 17.3 % (13.4-35.0) 05/07/20 04:43 [place] % (Auto) 8.6 % (0.0-7.3) H 05/07/20 04:43 Eos % (Auto) 3.8 % (0.0-4.3) 05/07/20 04:43 Baso % (Auto) 0.9 % (0.0-1.8) 05/07/20 04:43 Lymph # (Auto) 1.7 K/mm3 (1.2-5.4) 05/07/20 04:43 [place] # (Auto) 0.9 K/mm3 (0.0-0.8) H 05/07/20 04:43 Eos # (Auto) 0.4 K/mm3 (0.0-0.4) 05/07/20 04:43 Baso # (Auto) 0.1 K/mm3 (0.0-0.1) 05/07/20 04:43 Add Manual Diff Complete 04/25/20 06:34 Total Counted 100 04/25/20 06:34 Seg Neutrophils % 69.4 % (40.0-70.0) 05/07/20 04:43 Seg Neuts % (Manual) 78.0 % (40.0-70.0) H 04/25/20 06:34 Band Neutrophils % 1.0 % 04/22/20 07:45 Lymphocytes % (Manual) 10.0 % (13.4-35.0) L 04/25/20 06:34 Reactive Lymphs % (Man) 1.0 % 04/22/20 07:45 Monocytes % (Manual) 9.0 % (0.0-7.3) H 04/25/20 06:34 Eosinophils % (Manual) 2.0 % (0.0-4.3) 04/25/20 06:34 Basophils % (Manual) 1.0 % (0.0-1.8) 04/25/20 06:34 Metamyelocytes % 3.0 % 04/12/20 09:07 Myelocytes % 0 % 03/28/20 10:28 Promyelocytes % 0 % 03/28/20 10:28 Blast Cells % 0 % 03/28/20 10:28 Nucleated RBC % Not Reportable 04/25/20 06:34 Seg Neutrophils # 7.0 K/mm3 (1.8-7.7) 05/07/20 04:43 Seg Neutrophils # Man 9.1 K/mm3 (1.8-7.7) H 04/25/20 06:34 Band Neutrophils # 0.0 K/mm3 04/25/20 06:34 Lymphocytes # (Manual) 1.2 K/mm3 (1.2-5.4) 04/25/20 06:34 Abs React Lymphs (Man) 0.0 K/mm3 04/25/20 06:34 Monocytes # (Manual) 1.1 K/mm3 (0.0-0.8) H 04/25/20 06:34 Eosinophils # (Manual) 0.2 K/mm3 (0.0-0.4) 04/25/20 06:34 Basophils # (Manual) 0.1 K/mm3 (0.0-0.1) 04/25/20 06:34 Metamyelocytes # 0.0 K/mm3 04/25/20 06:34 Myelocytes # 0.0 K/mm3 04/25/20 06:34 Promyelocytes # 0.0 K/mm3 04/25/20 06:34 Blast Cells # 0.0 K/mm3 04/25/20 06:34 WBC Morphology Not Reportable 04/25/20 06:34 Hypersegmented Neuts Not Reportable 04/25/20 06:34 Hyposegmented Neuts Not Reportable 04/25/20 06:34 Hypogranular Neuts Not Reportable 04/25/20 06:34 Smudge Cells Not Reportable 04/25/20 06:34 Toxic Granulation Not Reportable 04/25/20 06:34 Toxic Vacuolation Not Reportable 04/25/20 06:34 Dohle Bodies Not Reportable 04/25/20 06:34 Pelger-Huet Anomaly Not Reportable 04/25/20 06:34 Robert Rods Not Reportable 04/25/20 06:34 Platelet Estimate Consistent w auto 04/25/20 06:34 Clumped Platelets Not Reportable 04/25/20 06:34 Plt Clumps, EDTA Not Reportable 04/25/20 06:34 Large Platelets Not Reportable 04/25/20 06:34 Giant Platelets Not Reportable 04/25/20 06:34 Platelet Satelliting Not Reportable 04/25/20 06:34 Plt Morphology Comment Not Reportable 04/25/20 06:34 RBC Morphology Not Reportable 04/25/20 06:34 Dimorphic RBCs Not Reportable 04/25/20 06:34 Polychromasia Not Reportable 04/25/20 06:34 Hypochromasia 1+ 04/25/20 06:34 Poikilocytosis Not Reportable 04/25/20 06:34 Anisocytosis Few 04/25/20 06:34 Microcytosis Not Reportable 04/25/20 06:34 Macrocytosis Not Reportable 04/25/20 06:34 Spherocytes Not Reportable 04/25/20 06:34 Pappenheimer Bodies Not Reportable 04/25/20 06:34 Sickle Cells Not Reportable 04/25/20 06:34 Target Cells Not Reportable 04/25/20 06:34 Stomatocytes Few 03/17/20 04:40 Tear Drop Cells Not Reportable 04/25/20 06:34 Ovalocytes Not Reportable 04/25/20 06:34 Helmet Cells Not Reportable 04/25/20 06:34 [place] Bodies Not Reportable 04/25/20 06:34 [place] Rings Not Reportable 04/25/20 06:34 Riaz Cells Not Reportable 04/25/20 06:34 Bite Cells Not Reportable 04/25/20 06:34 Crenated Cell Not Reportable 04/25/20 06:34 Elliptocytes Not Reportable 04/25/20 06:34 Acanthocytes (Spur) Not Reportable 04/25/20 06:34 Rouleaux Not Reportable 04/25/20 06:34 Hemoglobin C Crystals Not Reportable 04/25/20 06:34 Schistocytes 1+ 04/25/20 06:34 Malaria parasites Not Reportable 04/25/20 06:34 [place] Bodies Not Reportable 04/25/20 06:34 Hem Pathologist Commnt No 04/25/20 06:34 PT 15.6 Sec. (12.2-14.9) H 02/24/20 09:19 INR 1.21 (0.87-1.13) H 02/24/20 09:19 APTT 25.4 Sec. (24.2-36.6) 02/24/20 09:19 D-Dimer 1311.96 ng/mlDDU (0-234) H 02/24/20 09:19 ABG pH 7.371 (7.320-7.450) 03/08/20 12:34 POC ABG pCO2 63.1 mmHg (32.0-48.0) H 03/08/20 12:34 ABG pCO2 60.1 mm Hg 03/06/20 04:34 POC ABG pO2 90.5 mmHg (83-108) 03/08/20 12:34 ABG pO2 88.6 mm Hg (80.0-90.0) 03/06/20 04:34 POC ABG HCO3 35.7 03/08/20 12:34 ABG HCO3 37.9 mmol/L (20.0-26.0) H 03/06/20 04:34 ABG O2 Saturation 97.0 % (95.0-99.0) 03/06/20 04:34 ABG O2 Content 14.3 (0.0-44) 03/06/20 04:34 POC ABG Base Excess 8.7 03/08/20 12:34 ABG Base Excess 11.4 mmol/L (-2.0-3.0) H 03/06/20 04:34 ABG Hemoglobin 10.9 (12.0-17.5) L 03/08/20 12:34 ABG Oxyhemoglobin 95.9 (94-98) 03/08/20 12:34 ABG Carboxyhemoglobin 1.7 % (0.0-5.0) 03/06/20 04:34 ABG Methemoglobin 0.3 (0.0-1.5) 03/08/20 12:34 ABG Sodium 143.6 mmol/L (136.0-145.0) 03/08/20 12:34 ABG Potassium 3.8 mmol/L (3.40-4.50) 03/08/20 12:34 ABG Chloride 102.0 mmol/L (98-107) 03/08/20 12:34 ABG Glucose 176 mg/dL (65-95) H 03/08/20 12:34 Oxyhemoglobin 94.7 % (95.0-99.0) L 03/06/20 04:34 Carboxyhemoglobin 0.7 (0.5-1.5) 03/08/20 12:34 FiO2 30 03/08/20 12:34 Sodium 136 mmol/L (137-145) L 05/09/20 16:06 Potassium 4.4 mmol/L (3.6-5.0) 05/09/20 16:06 Chloride 97.0 mmol/L (98-107) L 05/09/20 16:06 Carbon Dioxide 34 mmol/L (22-30) H 05/09/20 16:06 Anion Gap 9 mmol/L 05/09/20 16:06 BUN 14 mg/dL (9-20) 05/09/20 16:06 Creatinine < 0.2 mg/dL (0.8-1.3) L 05/09/20 16:06 Estimated GFR > 60 ml/min 05/09/20 16:06 BUN/Creatinine Ratio 70 % 05/09/20 16:06 Glucose 107 mg/dL (75-100) H 05/09/20 16:06 POC Glucose 129 mg/dL (70-105) H 05/14/20 05:03 Lactic Acid 1.00 mmol/L (0.7-2.0) 02/24/20 12:07 Calcium 9.0 mg/dL (8.4-10.2) 05/09/20 16:06 Phosphorus 3.30 mg/dL (2.5-4.5) 03/29/20 14:35 Magnesium 1.90 mg/dL (1.7-2.3) 04/12/20 09:07 Ferritin 1715.0 ng/mL (30.0-300.0) H 02/24/20 10:01 Total Bilirubin 0.20 mg/dL (0.1-1.2) 04/12/20 09:07 AST 15 units/L (5-40) 04/12/20 09:07 ALT 15 units/L (7-56) 04/12/20 09:07 Alkaline Phosphatase 62 units/L (35-129) 04/12/20 09:07 Lactate Dehydrogenase 303 units/L (91-180) H 02/24/20 09:19 Total Creatine Kinase 47 units/L (55-170) L 03/28/20 17:17 CK-MB (CK-2) 2.2 ng/mL (0.0-4.0) 03/28/20 17:17 CK-MB (CK-2) Rel Index 4.6 (0-4) H 03/28/20 17:17 Troponin T 0.181 ng/mL (0.00-0.029) H* 04/24/20 05:28 C-Reactive Protein 4.70 mg/dL (0.00-1.30) H 02/28/20 11:05 NT-Pro-B Natriuret Pep 48.30 pg/mL (0-900) 02/24/20 09:19 Total Protein 6.7 g/dL (6.3-8.2) 04/12/20 09:07 Albumin 2.7 g/dL (3.9-5) L 04/12/20 09:07 Albumin/Globulin Ratio 0.7 % 04/12/20 09:07 Prealbumin 0.090 g/L (0.200-0.400) L 02/28/20 12:54 Triglycerides 62 mg/dL (2-149) 04/23/20 04:28 Cholesterol 104 mg/dL (50-199) 04/23/20 04:28 LDL Cholesterol Direct 66 mg/dL (50-130) 04/23/20 04:28 HDL Cholesterol 29 mg/dL (40-59) L 04/23/20 04:28 Cholesterol/HDL Ratio 3.58 % 04/23/20 04:28 Procalcitonin < 0.05 ng/mL (<0.15) 03/28/20 17:12 Arterial Blood Glucose 176 mg/dL (65-95) H 03/08/20 12:34 Arterial Blood Ionized Calcium 4.5 mg/dL (4.6-5.3) L 03/08/20 12:34 Urine Color Yellow (Yellow) 03/28/20 11:36 Urine Turbidity Hazy (Clear) 03/28/20 11:36 Urine pH 5.0 (5.0-7.0) 03/28/20 11:36 Ur Specific [place] 1.026 (1.003-1.030) 03/28/20 11:36 Urine Protein 100 mg/dl mg/dL (Negative) 03/28/20 11:36 Urine Glucose (UA) Neg mg/dL (Negative) 03/28/20 11:36 Urine Ketones Neg mg/dL (Negative) 03/28/20 11:36 Urine Blood Neg (Negative) 03/28/20 11:36 Urine Nitrite Neg (Negative) 03/28/20 11:36 Urine Bilirubin Neg (Negative) 03/28/20 11:36 Urine Urobilinogen 4.0 mg/dL (<2.0) 03/28/20 11:36 Ur Leukocyte Esterase Mod (Negative) 03/28/20 11:36 Urine WBC (Auto) 39.0 /HPF (0.0-6.0) H 03/28/20 11:36 Urine RBC (Auto) 16.0 /HPF (0.0-6.0) 03/28/20 11:36 U Epithel Cells (Auto) < 1.0 /HPF (0-13.0) 03/08/20 08:57 Urine Bacteria (Auto) 2+ /HPF (Negative) 03/28/20 11:36 Urine Mucus 3+ /HPF 03/28/20 11:36 Urine Yeast (Budding) 2+ /HPF 03/28/20 11:36 Vancomycin Trough 8.0 ug/mL (5.0-20.0) 03/04/20 08:59 Coronavirus (PCR) Negative (Negative) 02/25/20 09:03 - Diagnostic Impressions Diagnostic Impressions: Echocardiogram 02/26/20 10:41 Transthoracic Echocardiogram Indication: Elevated Trop BP: 116/75 HR: 85 Conclusions *Global left ventricular wall motion and contractility are within normal limits. *The estimated ejection fraction is 50-55%. *Abnormal left ventricular diastolic filling is observed, consistent with impaired relaxation. *There is no pericardial effusion. Findings Left Ventricle: The left ventricular chamber size is normal. Global left ventricular wall motion and contractility are within normal limits. Global left ventricular systolic function is normal. The estimated ejection fraction is 50-55%. Abnormal left ventricular diastolic filling is observed, consistent with impaired relaxation. Left Atrium: The left atrial chamber size is normal. Right Ventricle: The right ventricular cavity size is normal. Right Atrium: The right atrial cavity size is normal. Aortic Valve: Mild aortic leaflet calcification is visualized. There is no evidence of aortic regurgitation. Mitral Valve: The mitral valve leaflets are mildly thickened. There is no evidence of mitral regurgitation. Tricuspid Valve: The tricuspid valve leaflets are normal. There is trace tricuspid regurgitation. The right ventricular systolic pressure is calculated at 29 mmHg. Pulmonic Valve: The pulmonic valve is not well visualized. Pericardium: There is no pericardial effusion. Aorta: The aorta appears normal. Venous: The inferior vena cava is dilated. There is less than 50% respiratory change in the inferior vena cava dimension. Measurements Chambers 2D Name Value Normal Range IVSd (2D) 0.97 cm (0.6 - 1.1) LVPWd (2D) 0.93 cm (0.6 - 1.1) LVIDd (2D) 4 cm (3.7 - 5.6) LVIDs (2D) 2.73 cm (2 - 3.8) LV FS (2D) 31.67 % - EF Teichholz (2D) 60.23 % - Ao root diameter (2D) 3.51 cm (2 - 3.7) Volumes/Mass Name Value Normal Range LA ESV SP 4CH (A/L) 8.43 ml - LA ESV SP 2CH (A/L) 18.89 ml - LA ESV BP (A/L) 13.02 ml - LA ESV BP (A/L) index 8.8 ml/m2 - LA ESV SP 4CH (MOD) 7.22 ml - LA ESV SP 2CH (MOD) 18.15 ml - LA ESV BP (MOD) 11.47 ml - LA ESV BP (MOD) index 7.75 ml/m2 - Diastolic/Systolic Function Name Value Normal Range MV E-wave Vmax 0.51 m/sec - MV deceleration time 180.22 msec - MV A-wave Vmax 0.62 m/sec - MV E:A ratio 0.82 ratio - Aortic Valve Name Value Normal Range AV Vmax 1.17 m/sec - AV VTI 19.71 cm - AV peak gradient 5.44 mmHg - AV mean gradient 3.38 mmHg - LVOT diameter 2.26 cm - LVOT Vmax 0.89 m/sec - LVOT VTI 13.72 cm - LVOT peak gradient 3.17 mmHg - LVOT mean gradient 1.67 mmHg - SV LVOT 55.03 ml - SHARAD (continuity Vmax) 3.06 cm2 - SHARAD (continuity VTI) 2.79 cm2 - Tricuspid Valve Name Value Normal Range TR Vmax 2.3 m/sec - TR peak gradient 21 mmHg - RAP 8 mmHg - RVSP 29 mmHg - IVC diameter 2.59 cm (1.2 - 2.3) Pulmonic Valve/Qp:Qs Name Value Normal Range PV acceleration time 68.51 msec - Drake/IV: Voiding Method Indwelling Catheter IV Catheter Type [Right Wrist] INT / Saline Lock IV Catheter Type [Left Hand] INT / Saline Lock IV Catheter Type [Right Hand] Peripheral IV IV Catheter Type [Left Wrist] INT / Saline Lock IV Catheter Type [Right INT / Saline Lock Forearm] IV Catheter Type [Right Triple Lumen Cath Internal Jugular] IV Catheter Type [Left Forearm INT / Saline Lock ] IV Catheter Type [Right Triple Lumen Cath Femoral] IV Catheter Type [Right INT / Saline Lock Antecubital] Active Medications - Current Medications Current Medications: Generic Name Dose Route Start Last Admin Trade Name Freq PRN Reason Stop Dose Admin Acetaminophen 650 mg 02/24/20 15:13 05/11/20 12:07 Acetaminophen 325 Mg Tab PO 650 mg Q4H PRN Administration Pain, Mild (1-3) Albuterol 2.5 mg 02/24/20 15:13 Albuterol 2.5 Mg/3 Ml Nebu IH Q4HRT PRN Shortness Of Breath Alprazolam 0.5 mg 03/30/20 14:19 05/14/20 06:39 Alprazolam 0.5 Mg Tab PO 0.5 mg Q8H PRN Administration Anxiety Lipase/Protease/Amylase 1 each 02/26/20 11:16 Lipase 10,500/Protease 25,000/Amylase 43,750 (Units) Dr Larry FEEDTUBE PRN PRN For Clogged Feeding Tube Aspirin 81 mg 04/28/20 10:00 05/13/20 09:43 Aspirin Ec 81 Mg Tab PO 81 mg QDAY ALISA Administration Baclofen 10 mg 04/03/20 12:00 05/13/20 22:17 Baclofen 10 Mg Tab PO 10 mg BID ALISA Administration Bisacodyl 10 mg 03/12/20 18:00 05/13/20 22:16 Bisacodyl 10 Mg Rect Supp [place] 10 mg QDAY PRN Administration Bowel Movement Diphenhydramine HCl 25 mg 05/09/20 20:32 05/12/20 10:45 Diphenhydramine 25 Mg/10 Ml Oral Liquid FEEDTUBE 25 mg Q6H PRN Administration Itching Docusate Sodium 100 mg 04/03/20 12:00 05/13/20 22:17 Docusate Sodium 100 Mg/10 Ml Oral Liqd FEEDTUBE 100 mg BID ALISA Administration Enoxaparin Sodium 40 mg 03/20/20 22:00 05/13/20 22:18 Enoxaparin 40 Mg/0.4 Ml Inj SUB-Q 40 mg QDAY@2200 ALISA Administration Protocol Glycopyrrolate 2 mg 04/16/20 20:00 05/13/20 22:17 Glycopyrrolate 1 Mg Tab PO 2 mg TID ALISA Administration Dextrose/Sodium Chloride 1,000 mls @ 42 mls/hr 05/09/20 10:00 05/14/20 02:19 D5ns IV 42 mls/hr DIRECT ALISA Administration Lansoprazole 30 mg 02/28/20 10:00 05/13/20 09:42 Lansoprazole 30 Mg Solutab FEEDTUBE 30 mg QDAY ALISA Administration Lidocaine 1 each 03/31/20 10:00 05/13/20 09:44 Lidocaine 5% 1 Each Patch TD 1 each QDAY ALISA Administration Lidocaine HCl 15 ml 04/15/20 14:00 05/13/20 22:16 Magic Mouthwash 30ml PO 15 ml TID ALISA Administration Magnesium Hydroxide 30 ml 04/12/20 19:20 05/14/20 04:48 Magnesium Hydroxide (Mom) Oral Liqd Udc PO 30 ml Q4H PRN Administration Constipation Metoprolol Tartrate 12.5 mg 02/24/20 22:00 05/13/20 22:51 Metoprolol Tartrate 25 Mg Tab PO 12.5 mg BID ALISA Administration Morphine Sulfate 2 mg 02/29/20 16:42 05/14/20 04:48 Morphine 2 Mg/1 Ml Inj IV 2 mg Q4H PRN Administration Pain, Moderate (4-6) Nitroglycerin 0.4 mg 04/24/20 02:03 Nitroglycerin 0.4 Mg Tab Subl SL .Q5MIN PRN Chest Pain Pregabalin 150 mg 04/03/20 12:00 05/13/20 22:17 Pregabalin 75 Mg Cap PO 150 mg BID ALISA Administration Scopolamine 1 each 03/03/20 14:00 05/11/20 11:37 Scopolamine Transdermal Patch 72 Hr TD 1 each Q3D ALISA Administration Senna 17.2 mg 04/03/20 22:00 05/13/20 22:17 Sennosides 8.6 Mg Tab PO 17.2 mg QHS ALISA Administration Simple Syrup 15 ml 02/26/20 11:16 Simple Syrup 15 Ml FEEDTUBE PRN PRN Hypoglycemia Simple Syrup 30 ml 02/26/20 11:16 Simple Syrup 15 Ml FEEDTUBE PRN PRN Hypoglycemia Sodium Bicarbonate 325 mg 02/26/20 11:16 Sodium Bicarbonate 325 Mg Tab FEEDTUBE PRN PRN For Clogged Feeding Tube Sodium Hypochlorite 1 applic 03/31/20 13:00 05/13/20 22:48 Sodium Hypochlorite, [place]'s 1/2 Strength (0.25%) 473 Ml Topical Soln TP 1 applicatio BID ALISA Administration Tamsulosin HCl 0.4 mg 03/09/20 18:00 05/13/20 09:42 Tamsulosin 0.4 Mg Cap PO 0.4 mg QDAY ALISA Administration Tramadol HCl 50 mg 04/22/20 11:35 05/14/20 06:39 Tramadol 50 Mg Tab PO 50 mg Q6H PRN Administration Pain, Moderate (4-6) Zolpidem Tartrate 10 mg 03/31/20 20:15 05/13/20 22:50 Zolpidem 5 Mg Tab PO 10 mg QHS PRN Administration Sleep Nutrition/Malnutrition Assess - Dietary Evaluation Nutrition/Malnutrition Findings: Nutrition Notes Start: 02/26/20 10:40 Freq: Status: Active Protocol: Document 05/09/20 14:31 CW (Rec: 05/09/20 14:41 CW [email or web address]) Co-Sign 05/09/20 14:31 LP Nutrition Notes Initial or Follow up Reassessment Current Diagnosis Decubitus(Pressure Ulcer), Sepsis,Respiratory Failure Other Pertinent Diagnosis COVID-19 (-), ALS, pneumonia, Hip/buttock PU Current Diet Vital AF 1.2 at 75ml/hr (goal rate) Labs/Tests Reviewed Pertinent Medications Reviewed Height 6 ft Weight 68 kg [place] Body Weight (kg) 80.90 BMI 20.3 Weight Status Appropriate Subjective/Other Information FU for TF tolerance, vent status, wt. Pt remains on the vent with TF running at goal rate. Per RN, pt is tolerating TF. Percent of energy/protein needs met: 100%/100% Burn Absent Trauma Absent GI Symptoms None Skin Integrity/Comment Pressure Ulcer Stage 2 Current % PO Negligible Minimum of two criteria Yes Body Fat Depletion Mild depletion (non-severe) Muscle Mass Mild Depletion (non-severe) Reduced [employer] Strength Measurably Reduced (severe) #3 Nutrition Diagnosis Malnutrition Diagnosis Progress(for reassessment Continues documentation) #2 Nutrition Diagnosis Inadequate oral intake Diagnosis Progress(for reassessment Continues documentation) #1 Nutrition Diagnosis Increased nutrient needs ( specify in comment below) Diagnosis Progress(for reassessment Continues documentation) Is patient on ventilator? Yes Is Patient Ambulatory and/or Out of Bed No REE-([facility]-confined to bed) 1844.448 Kcal/Kg value to use for calculation 32 Approximate Energy Requirements Using 2176 kcal/Kg Calculation Used for Recommendations Kcal/kg Additional Notes Protein needs: 81-136 g (1.2-2 g/ kg ABW) Fluid: 1ml/kcal Nutrition Intervention Change Diet Order: Continue TF Nutrition Support: Vital AF 1.2 at 75ml/hr. Flush 150ml q4h Kcal 2,160 Protein (gm) 135 Fluid (mL) 1,460 Add Supplement/Snack (indicate name/kcal Will BID /protein ) Provides kCal: 190 Provides Protein (gm) 5 Goal #1 Meet at least 80% of energy and protein needs via TF Goal #2 Wound healing Goal #3 Continue TF tolerance Anticipated Discharge Needs: Unable to determine at this time Follow-Up By: 05/16/20 Additional Comments FU for stable TF, vent status, wt
[2020-05-14] MEDS: SCOPOLAMINE TRANSDERMAL PATCH 72 HR TD SCH (10:00)
[2020-05-14] MEDS: LIDOCAINE 5% 1 EACH PATCH TD SCH (10:00)
[2020-05-14] MEDS: PREGABALIN 75 MG CAP PO SCH ×2 (10:01→21:18)
[2020-05-14] MEDS: DOCUSATE SODIUM 100 MG/10 ML ORAL LIQD FEEDTUBE SCH ×2 (10:01→21:19)
[2020-05-14] MEDS: LANSOPRAZOLE 30 MG SOLUTAB FEEDTUBE SCH (10:01)
[2020-05-14] MEDS: METOPROLOL TARTRATE 25 MG TAB PO SCH ×2 (10:01→21:19)
[2020-05-14] MEDS: ASPIRIN EC 81 MG TAB PO SCH (10:01)
[2020-05-14] MEDS: MAGIC MOUTHWASH 30ML PO SCH ×3 (10:01→21:20)
[2020-05-14] MEDS: TAMSULOSIN 0.4 MG CAP PO SCH (10:02)
[2020-05-14] MEDS: BACLOFEN 10 MG TAB PO SCH ×2 (10:02→21:19)
[2020-05-14] MEDS: SODIUM HYPOCHLORITE, DAKIN'S 1/2 STRENGTH (0.25%) 473 ML TOPICAL SOLN TP SCH ×2 (10:02→23:29)
[2020-05-14] MEDS: GLYCOPYRROLATE 1 MG TAB PO SCH ×3 (10:02→23:28)
--- NOTE | 2020-05-14 11:48 | XRay Report ---
ABDOMEN 1 VIEW INDICATION / CLINICAL INFORMATION: Abdominal pain, distention. COMPARISON: Prior abdominal radiograph dated 03/10/2020. FINDINGS: TUBES / LINES: Interval placement of PEG tube projected over the gastric lumen. Interval removal of N G tube. BOWEL GAS PATTERN: Minimally gas-filled and distended large and small bowel loops. Abundant fecal mat erial noted throughout the descending colon and rectal vault. FREE AIR / EXTRALUMINAL GAS: None seen. ADDITIONAL FINDINGS: No significant additional findings. IMPRESSION: 1. Interval placement of PEG tube projected over the gastric lumen. 2. Interval removal of NG tube. 3. Abundant fecal material noted throughout the descending colon and rectal vault. Correlate for sign s and symptoms of constipation. Signer Name: Baldemar Ureña MD Signed: 05/14/2020 11:44 AM Workstation Name: [id number]
[2020-05-14] MEDS ORDERED: LACTULOSE 20 GM/30 ML ORAL LIQD PO ONE (12:55)
[2020-05-14] MEDS: POLYETHYLENE GLYCOL 3350 17 GM POWDER PO PRN ×2 (14:13→21:19)
--- NOTE | 2020-05-14 15:50 | Progress Note ---
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 Respiratory Failure Severe Sepsis with Shock Bilateral Pneumonia (Possible aspiration) History of ALS on Trilogy Oropharyngeal Dysphagia PUI-COVID Acute toxic metabolic encephalopathy Elevated D-dimer Elevated troponin possibly type 2 ischemia - no new issues, discharge planning still ongoing for home ventilator - continue daily SBT's as tolerated; t-piece trial attempts as tolerated (PSV if fails) - remains ventilator dependent; refusing SBT's at time and not tolerating t-piec e when tried - continue care as below; - continue home meds re: chronic pain (Baclofen, Lyrica) - repeat CXR prn +/- bronchoscopy for mucus plugging / large volume atelectasis - continue psychoactive meds for anxiolysis - continue Robinul & scopolamine for secretion control - prn electrolytes and optimize K+ & Mg 2+ for best respiratory muscle function - wound care per RN/WCN - wean supplemental oxygen for target O2 sat's > 90% acutely - bronchodilators with pulmonary hygiene per RT - VAP bundle addressed - continue lung protective strategies - continue bronchodilators with pulmonary hygiene per RT - wean per pulmonary driven protocols otherwise - sedation prn for target RASS 0 to -1 - s/p empiric antiinfectives per ID rec's (Rocephin and Zithromax) - s/p COVID-19 isolation (Airborne & Contact) - s/p Dexamethasone - enteral nutrition at goal rate as tolerated - accuchecks with glycemic control per SSI (While critically ill target blood glucose of 140-180 mg/dL; avoid hypoglycemia) - avoid nephrotoxins, renally dose all medications - avoid benzodiazepine's, reduce the possibility of delirium - prn analgesia per CPOT score - Maintenance of sleep-wake cycle, avoid delirium - aspiration precautions - G.I. & VTE prophylaxis - PT/OT/ROM exercises - mobility protocols for pressure ulcer prophylaxis - Monitor hemodynamics closely - continue other care per attending / other consultants - discharge planning ongoing concurrently .... Re-evaluate in am & prn CONDITION: CRITICAL PROGNOSIS: GUARDED CODE STATUS: FULL CODE The high probability of a clinically significant, sudden or life-threatening deterioration of the [respiratory, cardiovascular & neurologic] system(s) required my full and direct attention, intervention and personal management. The aggregate critical care time was [34] minutes without overlap. Time includes spent on; [x] Data Review and interpretation [x] Patient assessment and monitoring of vital signs [x] Documentation [x] Medication orders and management Subjective Date of service: 05/14/20 Principal diagnosis: Ac on Ch Hypercapnic & hypoxemic Resp Failure; Severe Seps is; Jamar PNA; ALS Interval history: Patient is seen today for: Acute on Chronic Hypercapnic & hypoxemic Respiratory Failure; Severe Sepsis with Shock; Bilateral Pneumonia (Possible aspiration); History of ALS on Trilogy; PUI-COVID; Acute toxic metabolic encephalopathy Seen and examined at bedside; 24hour events reviewed; nursing and respiratory c are staff consulted; no adverse overnight events reported to me; resting in bed; remains on MVS; tolerating daytime PSV trials; No N/V/F/C; no new issues otherwise Objective Vital Signs - 12hr 05/14/20 05/14/20 05/14/20 03:50 04:00 04:10 Temperature 97.9 F Pulse Rate 121 H 110 H Pulse Rate [ From Monitor] Respiratory 24 Rate Blood Pressure 146/94 O2 Sat by Pulse 95 Oximetry O2 Sat by Pulse Oximetry [ Assessment] 05/14/20 05/14/20 05/14/20 04:40 04:41 04:48 Temperature Pulse Rate 110 H Pulse Rate [ From Monitor] Respiratory 24 Rate Blood Pressure 146/94 O2 Sat by Pulse 96 Oximetry O2 Sat by Pulse 96 Oximetry [ Assessment] 05/14/20 05/14/20 05/14/20 05:00 05:18 06:00 Temperature Pulse Rate 102 H 108 H Pulse Rate [ From Monitor] Respiratory 25 H 24 25 H Rate Blood Pressure 145/100 147/97 O2 Sat by Pulse 95 94 Oximetry O2 Sat by Pulse Oximetry [ Assessment] 05/14/20 05/14/20 05/14/20 06:39 07:00 08:00 Temperature 98 F Pulse Rate 111 H 106 H Pulse Rate [ 106 H From Monitor] Respiratory 28 H 23 22 Rate Blood Pressure 139/99 143/98 O2 Sat by Pulse 95 94 Oximetry O2 Sat by Pulse Oximetry [ Assessment] 05/14/20 05/14/20 05/14/20 09:00 09:30 10:00 Temperature Pulse Rate 97 H 103 H 107 H Pulse Rate [ From Monitor] Respiratory 19 24 Rate Blood Pressure 127/79 151/92 151/92 O2 Sat by Pulse 94 98 94 Oximetry O2 Sat by Pulse Oximetry [ Assessment] 05/14/20 05/14/20 05/14/20 10:01 11:00 12:00 Temperature 98.6 F Pulse Rate 107 H 109 H 97 H Pulse Rate [ 97 H From Monitor] Respiratory 23 22 Rate Blood Pressure 151/92 131/86 126/83 O2 Sat by Pulse 96 96 Oximetry O2 Sat by Pulse Oximetry [ Assessment] 05/14/20 05/14/20 13:00 14:00 Temperature Pulse Rate 103 H 108 H Pulse Rate [ From Monitor] Respiratory 26 H 20 Rate Blood Pressure 134/87 142/84 O2 Sat by Pulse 96 95 Oximetry O2 Sat by Pulse Oximetry [ Assessment] Constitutional: no acute distress, other (thin middle aged male with mildly increased respiratory effort at rest on MVS) Eyes: non-icteric ENT: oropharynx moist, other (S/P Tracheostomy) Neck: supple, no lymphadenopathy, no JVD Effort: mildly labored Ascultation: Bilateral: diminished breath sounds, rhonchi (scant in bases) Percussion: Bilateral: not dull Cardiovascular: regular rate and rhythm, other (S1,S2, no murmurs) Gastrointestinal: normoactive bowel sounds, soft, non-tender, non-distended Integumentary: normal, decubitus ulcer (sacral / gluteal) Extremities: no cyanosis, no edema, pulses normal, other (atrophic looking limbs) Neurologic: pupils equal and round, other (motor strength in extremities 1-2/5, awake, alert, mouths words to make needs known) Psychiatric: depressed CBC and BMP: 05/07/20 04:43 05/09/20 16:06 ABG, PT/INR, D-dimer: ABG ABG pH 7.371 (7.320-7.450) 03/08/20 12:34 POC ABG pCO2 63.1 mmHg (32.0-48.0) H 03/08/20 12:34 ABG pCO2 60.1 mm Hg 03/06/20 04:34 POC ABG pO2 90.5 mmHg (83-108) 03/08/20 12:34 ABG pO2 88.6 mm Hg (80.0-90.0) 03/06/20 04:34 POC ABG HCO3 35.7 03/08/20 12:34 ABG O2 Saturation 97.0 % (95.0-99.0) 03/06/20 04:34 PT/INR, D-dimer PT 15.6 Sec. (12.2-14.9) H 02/24/20 09:19 INR 1.21 (0.87-1.13) H 02/24/20 09:19 D-Dimer 1311.96 ng/mlDDU (0-234) H 02/24/20 09:19 Abnormal lab findings: Abnormal Labs 02/24/20 02/24/20 02/24/20 09:19 09:19 09:19 WBC 20.2 H RBC 5.05 H Hgb Hct MCV MCH RDW 15.3 H Plt Count Lymph % (Auto) Mills % (Auto) Lymph # (Auto) Mills # (Auto) Seg Neutrophils % Seg Neuts % (Manual) 86.0 H Lymphocytes % (Manual) 1.0 L Monocytes % (Manual) Basophils % (Manual) Seg Neutrophils # Seg Neutrophils # Man 17.4 H Lymphocytes # (Manual) 0.2 L Monocytes # (Manual) Eosinophils # (Manual) Basophils # (Manual) PT 15.6 H INR 1.21 H D-Dimer 1311.96 H ABG pH POC ABG pCO2 POC ABG pO2 ABG pO2 ABG HCO3 ABG O2 Saturation ABG Base Excess ABG Hemoglobin ABG Oxyhemoglobin ABG Potassium ABG Glucose Oxyhemoglobin Carboxyhemoglobin Sodium 135 L Potassium 3.2 L Chloride 92.2 L Carbon Dioxide BUN 6 L Creatinine < 0.2 L Glucose 124 H POC Glucose Calcium Ferritin Total Bilirubin 2.30 H Alkaline Phosphatase 132 H Lactate Dehydrogenase Total Creatine Kinase CK-MB (CK-2) Rel Index Troponin T 0.080 H C-Reactive Protein Total Protein Albumin 3.6 L Prealbumin LDL Cholesterol Direct 41 L HDL Cholesterol Arterial Blood Glucose Arterial Blood Ionized Calcium Urine WBC (Auto) 02/24/20 02/24/20 02/24/20 09:19 09:58 10:01 WBC RBC Hgb Hct MCV MCH RDW Plt Count Lymph % (Auto) Mills % (Auto) Lymph # (Auto) Mills # (Auto) Seg Neutrophils % Seg Neuts % (Manual) Lymphocytes % (Manual) Monocytes % (Manual) Basophils % (Manual) Seg Neutrophils # Seg Neutrophils # Man Lymphocytes # (Manual) Monocytes # (Manual) Eosinophils # (Manual) Basophils # (Manual) PT INR D-Dimer ABG pH 7.176 L* POC ABG pCO2 POC ABG pO2 ABG pO2 91.2 H ABG HCO3 ABG O2 Saturation ABG Base Excess -4.6 L ABG Hemoglobin ABG Oxyhemoglobin ABG Potassium ABG Glucose Oxyhemoglobin 92.6 L Carboxyhemoglobin Sodium Potassium Chloride Carbon Dioxide BUN Creatinine Glucose POC Glucose Calcium Ferritin 1715.0 H Total Bilirubin Alkaline Phosphatase Lactate Dehydrogenase 303 H Total Creatine Kinase CK-MB (CK-2) Rel Index Troponin T C-Reactive Protein 26.10 H Total Protein Albumin Prealbumin LDL Cholesterol Direct HDL Cholesterol Arterial Blood Glucose Arterial Blood Ionized Calcium Urine WBC (Auto) 02/24/20 02/24/20 02/24/20 11:52 13:45 19:35 WBC RBC Hgb Hct MCV MCH RDW Plt Count Lymph % (Auto) Mills % (Auto) Lymph # (Auto) Mills # (Auto) Seg Neutrophils % Seg Neuts % (Manual) Lymphocytes % (Manual) Monocytes % (Manual) Basophils % (Manual) Seg Neutrophils # Seg Neutrophils # Man Lymphocytes # (Manual) Monocytes # (Manual) Eosinophils # (Manual) Basophils # (Manual) PT INR D-Dimer ABG pH 7.051 L* 7.300 L POC ABG pCO2 POC ABG pO2 ABG pO2 94.7 H 75.1 L ABG HCO3 18.0 L ABG O2 Saturation 93.5 L ABG Base Excess -6.8 L -7.8 L ABG Hemoglobin 13.2 L 11.9 L ABG Oxyhemoglobin ABG Potassium ABG Glucose Oxyhemoglobin 91.0 L 92.7 L Carboxyhemoglobin Sodium Potassium Chloride Carbon Dioxide BUN Creatinine Glucose POC Glucose Calcium Ferritin Total Bilirubin Alkaline Phosphatase Lactate Dehydrogenase Total Creatine Kinase CK-MB (CK-2) Rel Index Troponin T 0.034 H D C-Reactive Protein Total Protein Albumin Prealbumin LDL Cholesterol Direct HDL Cholesterol Arterial Blood Glucose Arterial Blood Ionized Calcium Urine WBC (Auto) 02/25/20 02/25/20 02/25/20 04:00 04:00 12:26 WBC 22.9 H RBC Hgb Hct MCV 83 L MCH 27 L RDW Plt Count 468 H Lymph % (Auto) Mills % (Auto) Lymph # (Auto) Mills # (Auto) Seg Neutrophils % Seg Neuts % (Manual) 89.0 H Lymphocytes % (Manual) 7.0 L Monocytes % (Manual) Basophils % (Manual) Seg Neutrophils # Seg Neutrophils # Man 20.4 H Lymphocytes # (Manual) Monocytes # (Manual) Eosinophils # (Manual) Basophils # (Manual) PT INR D-Dimer ABG pH POC ABG pCO2 POC ABG pO2 ABG pO2 ABG HCO3 ABG O2 Saturation ABG Base Excess ABG Hemoglobin ABG Oxyhemoglobin ABG Potassium 2.6 L ABG Glucose 142 H Oxyhemoglobin Carboxyhemoglobin Sodium Potassium 3.2 L Chloride Carbon Dioxide 18 L BUN Creatinine 0.2 L Glucose 114 H POC Glucose Calcium Ferritin Total Bilirubin Alkaline Phosphatase Lactate Dehydrogenase Total Creatine Kinase CK-MB (CK-2) Rel Index Troponin T C-Reactive Protein Total Protein Albumin 3.5 L Prealbumin LDL Cholesterol Direct HDL Cholesterol Arterial Blood Glucose 142 H Arterial Blood Ionized Calcium Urine WBC (Auto) 02/26/20 02/26/20 02/26/20 15:58 17:00 23:43 WBC RBC Hgb Hct MCV MCH RDW Plt Count Lymph % (Auto) Mills % (Auto) Lymph # (Auto) Mills # (Auto) Seg Neutrophils % Seg Neuts % (Manual) Lymphocytes % (Manual) Monocytes % (Manual) Basophils % (Manual) Seg Neutrophils # Seg Neutrophils # Man Lymphocytes # (Manual) Monocytes # (Manual) Eosinophils # (Manual) Basophils # (Manual) PT INR D-Dimer ABG pH 7.502 H POC ABG pCO2 POC ABG pO2 213.6 H ABG pO2 ABG HCO3 ABG O2 Saturation ABG Base Excess ABG Hemoglobin ABG Oxyhemoglobin 99.2 H ABG Potassium 2.9 L ABG Glucose 160 H Oxyhemoglobin Carboxyhemoglobin 0.4 L Sodium Potassium Chloride Carbon Dioxide BUN Creatinine Glucose POC Glucose 189 H 120 H Calcium Ferritin Total Bilirubin Alkaline Phosphatase Lactate Dehydrogenase Total Creatine Kinase CK-MB (CK-2) Rel Index Troponin T C-Reactive Protein Total Protein Albumin Prealbumin LDL Cholesterol Direct HDL Cholesterol Arterial Blood Glucose 160 H Arterial Blood Ionized Calcium 4.5 L Urine WBC (Auto) 02/27/20 02/27/20 02/27/20 05:00 07:04 17:45 WBC RBC Hgb Hct MCV MCH RDW Plt Count Lymph % (Auto) Mills % (Auto) Lymph # (Auto) Mills # (Auto) Seg Neutrophils % Seg Neuts % (Manual) Lymphocytes % (Manual) Monocytes % (Manual) Basophils % (Manual) Seg Neutrophils # Seg Neutrophils # Man Lymphocytes # (Manual) Monocytes # (Manual) Eosinophils # (Manual) Basophils # (Manual) PT INR D-Dimer ABG pH 7.524 H POC ABG pCO2 POC ABG pO2 ABG pO2 ABG HCO3 ABG O2 Saturation ABG Base Excess ABG Hemoglobin ABG Oxyhemoglobin ABG Potassium 3.0 L ABG Glucose 143 H Oxyhemoglobin Carboxyhemoglobin Sodium Potassium Chloride Carbon Dioxide BUN Creatinine Glucose POC Glucose 154 H 175 H Calcium Ferritin Total Bilirubin Alkaline Phosphatase Lactate Dehydrogenase Total Creatine Kinase CK-MB (CK-2) Rel Index Troponin T C-Reactive Protein Total Protein Albumin Prealbumin LDL Cholesterol Direct HDL Cholesterol Arterial Blood Glucose 143 H Arterial Blood Ionized Calcium Urine WBC (Auto) 02/27/20 02/28/20 02/28/20 Unknown 00:21 04:15 WBC 18.7 H RBC Hgb Hct MCV MCH RDW Plt Count Lymph % (Auto) 8.7 L Mills % (Auto) Lymph # (Auto) Mills # (Auto) 1.2 H Seg Neutrophils % 84.6 H Seg Neuts % (Manual) Lymphocytes % (Manual) Monocytes % (Manual) Basophils % (Manual) Seg Neutrophils # 15.9 H Seg Neutrophils # Man Lymphocytes # (Manual) Monocytes # (Manual) Eosinophils # (Manual) Basophils # (Manual) PT INR D-Dimer ABG pH POC ABG pCO2 POC ABG pO2 ABG pO2 ABG HCO3 ABG O2 Saturation ABG Base Excess ABG Hemoglobin ABG Oxyhemoglobin ABG Potassium ABG Glucose Oxyhemoglobin Carboxyhemoglobin Sodium Potassium 2.9 L* Chloride Carbon Dioxide 33 H D BUN Creatinine < 0.2 L Glucose 157 H POC Glucose 134 H Calcium Ferritin Total Bilirubin Alkaline Phosphatase Lactate Dehydrogenase Total Creatine Kinase CK-MB (CK-2) Rel Index Troponin T C-Reactive Protein Total Protein Albumin Prealbumin LDL Cholesterol Direct HDL Cholesterol Arterial Blood Glucose Arterial Blood Ionized Calcium Urine WBC (Auto) 02/28/20 02/28/20 02/28/20 04:15 05:16 05:39 WBC RBC Hgb Hct MCV MCH RDW Plt Count Lymph % (Auto) Mills % (Auto) Lymph # (Auto) Mills # (Auto) Seg Neutrophils % Seg Neuts % (Manual) Lymphocytes % (Manual) Monocytes % (Manual) Basophils % (Manual) Seg Neutrophils # Seg Neutrophils # Man Lymphocytes # (Manual) Monocytes # (Manual) Eosinophils # (Manual) Basophils # (Manual) PT INR D-Dimer ABG pH POC ABG pCO2 POC ABG pO2 ABG pO2 142.9 H ABG HCO3 34.1 H ABG O2 Saturation ABG Base Excess 8.3 H ABG Hemoglobin ABG Oxyhemoglobin ABG Potassium ABG Glucose Oxyhemoglobin Carboxyhemoglobin Sodium 151 H Potassium Chloride Carbon Dioxide 32 H BUN Creatinine 0.2 L Glucose 167 H POC Glucose 138 H Calcium Ferritin Total Bilirubin Alkaline Phosphatase Lactate Dehydrogenase Total Creatine Kinase CK-MB (CK-2) Rel Index Troponin T C-Reactive Protein Total Protein Albumin Prealbumin LDL Cholesterol Direct HDL Cholesterol Arterial Blood Glucose Arterial Blood Ionized Calcium Urine WBC (Auto) 02/28/20 02/28/20 02/28/20 11:05 11:33 12:54 WBC RBC Hgb Hct MCV MCH RDW Plt Count Lymph % (Auto) Mills % (Auto) Lymph # (Auto) Mills # (Auto) Seg Neutrophils % Seg Neuts % (Manual) Lymphocytes % (Manual) Monocytes % (Manual) Basophils % (Manual) Seg Neutrophils # Seg Neutrophils # Man Lymphocytes # (Manual) Monocytes # (Manual) Eosinophils # (Manual) Basophils # (Manual) PT INR D-Dimer ABG pH POC ABG pCO2 POC ABG pO2 ABG pO2 ABG HCO3 ABG O2 Saturation ABG Base Excess ABG Hemoglobin ABG Oxyhemoglobin ABG Potassium ABG Glucose Oxyhemoglobin Carboxyhemoglobin Sodium Potassium Chloride Carbon Dioxide BUN Creatinine Glucose POC Glucose 160 H Calcium Ferritin Total Bilirubin Alkaline Phosphatase Lactate Dehydrogenase Total Creatine Kinase CK-MB (CK-2) Rel Index Troponin T C-Reactive Protein 4.70 H Total Protein Albumin Prealbumin 0.090 L LDL Cholesterol Direct HDL Cholesterol Arterial Blood Glucose Arterial Blood Ionized Calcium Urine WBC (Auto) 02/28/20 02/29/20 02/29/20 17:34 00:44 04:05 WBC 19.6 H RBC Hgb Hct MCV MCH 27 L RDW 15.4 H Plt Count Lymph % (Auto) Mills % (Auto) Lymph # (Auto) Mills # (Auto) Seg Neutrophils % Seg Neuts % (Manual) 86.0 H Lymphocytes % (Manual) 7.0 L Monocytes % (Manual) Basophils % (Manual) Seg Neutrophils # Seg Neutrophils # Man 16.9 H Lymphocytes # (Manual) Monocytes # (Manual) 1.2 H Eosinophils # (Manual) Basophils # (Manual) PT INR D-Dimer ABG pH POC ABG pCO2 POC ABG pO2 ABG pO2 ABG HCO3 ABG O2 Saturation ABG Base Excess ABG Hemoglobin ABG Oxyhemoglobin ABG Potassium ABG Glucose Oxyhemoglobin Carboxyhemoglobin Sodium Potassium Chloride Carbon Dioxide BUN Creatinine Glucose POC Glucose 136 H 156 H Calcium Ferritin Total Bilirubin Alkaline Phosphatase Lactate Dehydrogenase Total Creatine Kinase CK-MB (CK-2) Rel Index Troponin T C-Reactive Protein Total Protein Albumin Prealbumin LDL Cholesterol Direct HDL Cholesterol Arterial Blood Glucose Arterial Blood Ionized Calcium Urine WBC (Auto) 02/29/20 02/29/20 02/29/20 04:05 05:14 05:33 WBC RBC Hgb Hct MCV MCH RDW Plt Count Lymph % (Auto) Mills % (Auto) Lymph # (Auto) Mills # (Auto) Seg Neutrophils % Seg Neuts % (Manual) Lymphocytes % (Manual) Monocytes % (Manual) Basophils % (Manual) Seg Neutrophils # Seg Neutrophils # Man Lymphocytes # (Manual) Monocytes # (Manual) Eosinophils # (Manual) Basophils # (Manual) PT INR D-Dimer ABG pH POC ABG pCO2 54.3 H POC ABG pO2 124.8 H ABG pO2 ABG HCO3 ABG O2 Saturation ABG Base Excess ABG Hemoglobin ABG Oxyhemoglobin ABG Potassium ABG Glucose 185 H Oxyhemoglobin Carboxyhemoglobin Sodium 148 H Potassium Chloride Carbon Dioxide 33 H BUN Creatinine < 0.2 L Glucose 173 H POC Glucose 152 H Calcium Ferritin Total Bilirubin Alkaline Phosphatase Lactate Dehydrogenase Total Creatine Kinase CK-MB (CK-2) Rel Index Troponin T C-Reactive Protein Total Protein Albumin Prealbumin LDL Cholesterol Direct HDL Cholesterol Arterial Blood Glucose 185 H Arterial Blood Ionized Calcium Urine WBC (Auto) 03/01/20 03/01/20 03/01/20 00:00 03:45 04:33 WBC 23.1 H RBC Hgb Hct MCV MCH 27 L RDW 15.3 H Plt Count Lymph % (Auto) Mills % (Auto) Lymph # (Auto) Mills # (Auto) Seg Neutrophils % Seg Neuts % (Manual) 92.0 H Lymphocytes % (Manual) 6.0 L Monocytes % (Manual) Basophils % (Manual) Seg Neutrophils # Seg Neutrophils # Man 21.3 H Lymphocytes # (Manual) Monocytes # (Manual) Eosinophils # (Manual) 0.5 H Basophils # (Manual) PT INR D-Dimer ABG pH 7.492 H POC ABG pCO2 POC ABG pO2 ABG pO2 157.1 H ABG HCO3 32.3 H ABG O2 Saturation ABG Base Excess 8.1 H ABG Hemoglobin 13.2 L ABG Oxyhemoglobin ABG Potassium ABG Glucose Oxyhemoglobin Carboxyhemoglobin Sodium Potassium Chloride Carbon Dioxide BUN Creatinine Glucose POC Glucose 109 H Calcium Ferritin Total Bilirubin Alkaline Phosphatase Lactate Dehydrogenase Total Creatine Kinase CK-MB (CK-2) Rel Index Troponin T C-Reactive Protein Total Protein Albumin Prealbumin LDL Cholesterol Direct HDL Cholesterol Arterial Blood Glucose Arterial Blood Ionized Calcium Urine WBC (Auto) 03/01/20 03/01/20 03/01/20 04:33 05:29 12:32 WBC RBC Hgb Hct MCV MCH RDW Plt Count Lymph % (Auto) Mills % (Auto) Lymph # (Auto) Mills # (Auto) Seg Neutrophils % Seg Neuts % (Manual) Lymphocytes % (Manual) Monocytes % (Manual) Basophils % (Manual) Seg Neutrophils # Seg Neutrophils # Man Lymphocytes # (Manual) Monocytes # (Manual) Eosinophils # (Manual) Basophils # (Manual) PT INR D-Dimer ABG pH POC ABG pCO2 POC ABG pO2 ABG pO2 ABG HCO3 ABG O2 Saturation ABG Base Excess ABG Hemoglobin ABG Oxyhemoglobin ABG Potassium ABG Glucose Oxyhemoglobin Carboxyhemoglobin Sodium 146 H Potassium Chloride Carbon Dioxide 32 H BUN Creatinine < 0.2 L Glucose 120 H POC Glucose 120 H 128 H Calcium Ferritin Total Bilirubin Alkaline Phosphatase Lactate Dehydrogenase Total Creatine Kinase CK-MB (CK-2) Rel Index Troponin T C-Reactive Protein Total Protein Albumin Prealbumin LDL Cholesterol Direct HDL Cholesterol Arterial Blood Glucose Arterial Blood Ionized Calcium Urine WBC (Auto) 03/01/20 03/01/20 03/02/20 17:38 23:46 06:13 WBC RBC Hgb Hct MCV MCH RDW Plt Count Lymph % (Auto) Mills % (Auto) Lymph # (Auto) Mills # (Auto) Seg Neutrophils % Seg Neuts % (Manual) Lymphocytes % (Manual) Monocytes % (Manual) Basophils % (Manual) Seg Neutrophils # Seg Neutrophils # Man Lymphocytes # (Manual) Monocytes # (Manual) Eosinophils # (Manual) Basophils # (Manual) PT INR D-Dimer ABG pH POC ABG pCO2 POC ABG pO2 ABG pO2 ABG HCO3 ABG O2 Saturation ABG Base Excess ABG Hemoglobin ABG Oxyhemoglobin ABG Potassium ABG Glucose Oxyhemoglobin Carboxyhemoglobin Sodium Potassium Chloride Carbon Dioxide BUN Creatinine Glucose POC Glucose 114 H 121 H 120 H Calcium Ferritin Total Bilirubin Alkaline Phosphatase Lactate Dehydrogenase Total Creatine Kinase CK-MB (CK-2) Rel Index Troponin T C-Reactive Protein Total Protein Albumin Prealbumin LDL Cholesterol Direct HDL Cholesterol Arterial Blood Glucose Arterial Blood Ionized Calcium Urine WBC (Auto) 03/02/20 03/02/20 03/03/20 09:47 09:47 10:21 WBC 23.6 H RBC Hgb Hct MCV MCH RDW 15.3 H Plt Count 494 H Lymph % (Auto) Mills % (Auto) Lymph # (Auto) [place] # (Auto) Seg Neutrophils % Seg Neuts % (Manual) 85.0 H Lymphocytes % (Manual) 6.0 L Monocytes % (Manual) Basophils % (Manual) Seg Neutrophils # Seg Neutrophils # Man 20.1 H Lymphocytes # (Manual) Monocytes # (Manual) 1.7 H Eosinophils # (Manual) Basophils # (Manual) PT INR D-Dimer ABG pH POC ABG pCO2 POC ABG pO2 ABG pO2 ABG HCO3 ABG O2 Saturation ABG Base Excess ABG Hemoglobin ABG Oxyhemoglobin ABG Potassium 3.3 L ABG Glucose 158 H Oxyhemoglobin Carboxyhemoglobin Sodium Potassium Chloride Carbon Dioxide BUN Creatinine < 0.2 L Glucose 177 H POC Glucose Calcium Ferritin Total Bilirubin Alkaline Phosphatase Lactate Dehydrogenase Total Creatine Kinase CK-MB (CK-2) Rel Index Troponin T C-Reactive Protein Total Protein Albumin Prealbumin LDL Cholesterol Direct HDL Cholesterol Arterial Blood Glucose 158 H Arterial Blood Ionized Calcium Urine WBC (Auto) 03/03/20 03/04/20 03/04/20 21:30 00:00 12:23 WBC RBC Hgb Hct MCV MCH RDW Plt Count Lymph % (Auto) Mills % (Auto) Lymph # (Auto) Mills # (Auto) Seg Neutrophils % Seg Neuts % (Manual) Lymphocytes % (Manual) Monocytes % (Manual) Basophils % (Manual) Seg Neutrophils # Seg Neutrophils # Man Lymphocytes # (Manual) Monocytes # (Manual) Eosinophils # (Manual) Basophils # (Manual) PT INR D-Dimer ABG pH 7.328 L POC ABG pCO2 POC ABG pO2 ABG pO2 68.4 L ABG HCO3 35.0 H ABG O2 Saturation 93.9 L ABG Base Excess 6.8 H ABG Hemoglobin 12.7 L ABG Oxyhemoglobin ABG Potassium ABG Glucose Oxyhemoglobin 91.9 L Carboxyhemoglobin Sodium Potassium Chloride Carbon Dioxide BUN Creatinine Glucose POC Glucose 187 H 163 H Calcium Ferritin Total Bilirubin Alkaline Phosphatase Lactate Dehydrogenase Total Creatine Kinase CK-MB (CK-2) Rel Index Troponin T C-Reactive Protein Total Protein Albumin Prealbumin LDL Cholesterol Direct HDL Cholesterol Arterial Blood Glucose Arterial Blood Ionized Calcium Urine WBC (Auto) 03/04/20 03/04/20 03/05/20 18:15 21:30 06:02 WBC RBC Hgb Hct MCV MCH RDW Plt Count Lymph % (Auto) Mills % (Auto) Lymph # (Auto) Mills # (Auto) Seg Neutrophils % Seg Neuts % (Manual) Lymphocytes % (Manual) Monocytes % (Manual) Basophils % (Manual) Seg Neutrophils # Seg Neutrophils # Man Lymphocytes # (Manual) Monocytes # (Manual) Eosinophils # (Manual) Basophils # (Manual) PT INR D-Dimer ABG pH 7.297 L POC ABG pCO2 POC ABG pO2 ABG pO2 ABG HCO3 41.0 H ABG O2 Saturation ABG Base Excess 11.0 H ABG Hemoglobin 13.1 L ABG Oxyhemoglobin ABG Potassium ABG Glucose Oxyhemoglobin 94.5 L Carboxyhemoglobin Sodium Potassium Chloride Carbon Dioxide BUN Creatinine Glucose POC Glucose 192 H 127 H Calcium Ferritin Total Bilirubin Alkaline Phosphatase Lactate Dehydrogenase Total Creatine Kinase CK-MB (CK-2) Rel Index Troponin T C-Reactive Protein Total Protein Albumin Prealbumin LDL Cholesterol Direct HDL Cholesterol Arterial Blood Glucose Arterial Blood Ionized Calcium Urine WBC (Auto) 03/05/20 03/05/20 03/06/20 12:09 16:42 00:24 WBC RBC Hgb Hct MCV MCH RDW Plt Count Lymph % (Auto) Mills % (Auto) Lymph # (Auto) Mills # (Auto) Seg Neutrophils % Seg Neuts % (Manual) Lymphocytes % (Manual) Monocytes % (Manual) Basophils % (Manual) Seg Neutrophils # Seg Neutrophils # Man Lymphocytes # (Manual) Monocytes # (Manual) Eosinophils # (Manual) Basophils # (Manual) PT INR D-Dimer ABG pH POC ABG pCO2 POC ABG pO2 ABG pO2 ABG HCO3 ABG O2 Saturation ABG Base Excess ABG Hemoglobin ABG Oxyhemoglobin ABG Potassium ABG Glucose Oxyhemoglobin Carboxyhemoglobin Sodium Potassium Chloride Carbon Dioxide BUN Creatinine Glucose POC Glucose 147 H 114 H 134 H Calcium Ferritin Total Bilirubin Alkaline Phosphatase Lactate Dehydrogenase Total Creatine Kinase CK-MB (CK-2) Rel Index Troponin T C-Reactive Protein Total Protein Albumin Prealbumin LDL Cholesterol Direct HDL Cholesterol Arterial Blood Glucose Arterial Blood Ionized Calcium Urine WBC (Auto) 03/06/20 03/06/20 03/06/20 04:34 05:53 06:08 WBC 25.4 H RBC Hgb 10.5 L Hct 32.7 L MCV MCH 27 L RDW 15.3 H Plt Count 634 H Lymph % (Auto) Mills % (Auto) Lymph # (Auto) Mills # (Auto) Seg Neutrophils % Seg Neuts % (Manual) 88.0 H Lymphocytes % (Manual) 2.0 L Monocytes % (Manual) 8.0 H Basophils % (Manual) Seg Neutrophils # Seg Neutrophils # Man 22.4 H Lymphocytes # (Manual) 0.5 L Monocytes # (Manual) 2.0 H Eosinophils # (Manual) Basophils # (Manual) PT INR D-Dimer ABG pH POC ABG pCO2 POC ABG pO2 ABG pO2 ABG HCO3 37.9 H ABG O2 Saturation ABG Base Excess 11.4 H ABG Hemoglobin 10.6 L ABG Oxyhemoglobin ABG Potassium ABG Glucose Oxyhemoglobin 94.7 L Carboxyhemoglobin Sodium Potassium Chloride Carbon Dioxide BUN Creatinine Glucose POC Glucose 135 H Calcium Ferritin Total Bilirubin Alkaline Phosphatase Lactate Dehydrogenase Total Creatine Kinase CK-MB (CK-2) Rel Index Troponin T C-Reactive Protein Total Protein Albumin Prealbumin LDL Cholesterol Direct HDL Cholesterol Arterial Blood Glucose Arterial Blood Ionized Calcium Urine WBC (Auto) 03/06/20 03/06/20 03/06/20 06:08 12:19 19:10 WBC RBC Hgb Hct MCV MCH RDW Plt Count Lymph % (Auto) Mills % (Auto) Lymph # (Auto) [place] # (Auto) Seg Neutrophils % Seg Neuts % (Manual) Lymphocytes % (Manual) Monocytes % (Manual) Basophils % (Manual) Seg Neutrophils # Seg Neutrophils # Man Lymphocytes # (Manual) Monocytes # (Manual) Eosinophils # (Manual) Basophils # (Manual) PT INR D-Dimer ABG pH POC ABG pCO2 POC ABG pO2 ABG pO2 ABG HCO3 ABG O2 Saturation ABG Base Excess ABG Hemoglobin ABG Oxyhemoglobin ABG Potassium ABG Glucose Oxyhemoglobin Carboxyhemoglobin Sodium 150 H D Potassium Chloride Carbon Dioxide 39 H D BUN 23 H Creatinine < 0.2 L Glucose 144 H POC Glucose 169 H 152 H Calcium Ferritin Total Bilirubin Alkaline Phosphatase Lactate Dehydrogenase Total Creatine Kinase CK-MB (CK-2) Rel Index Troponin T C-Reactive Protein Total Protein Albumin 3.3 L Prealbumin LDL Cholesterol Direct HDL Cholesterol Arterial Blood Glucose Arterial Blood Ionized Calcium Urine WBC (Auto) 03/06/20 03/07/20 03/07/20 23:58 04:25 04:25 WBC 22.1 H RBC Hgb 10.9 L Hct 32.9 L MCV MCH RDW 15.5 H Plt Count 739 H Lymph % (Auto) 7.8 L [place] % (Auto) Lymph # (Auto) [place] # (Auto) 1.3 H Seg Neutrophils % 85.5 H Seg Neuts % (Manual) Lymphocytes % (Manual) Monocytes % (Manual) Basophils % (Manual) Seg Neutrophils # 18.9 H Seg Neutrophils # Man Lymphocytes # (Manual) Monocytes # (Manual) Eosinophils # (Manual) Basophils # (Manual) PT INR D-Dimer ABG pH POC ABG pCO2 POC ABG pO2 ABG pO2 ABG HCO3 ABG O2 Saturation ABG Base Excess ABG Hemoglobin ABG Oxyhemoglobin ABG Potassium ABG Glucose Oxyhemoglobin Carboxyhemoglobin Sodium 146 H Potassium Chloride Carbon Dioxide 37 H BUN Creatinine < 0.2 L Glucose 118 H POC Glucose 111 H Calcium Ferritin Total Bilirubin Alkaline Phosphatase Lactate Dehydrogenase Total Creatine Kinase CK-MB (CK-2) Rel Index Troponin T C-Reactive Protein Total Protein Albumin 3.7 L Prealbumin LDL Cholesterol Direct HDL Cholesterol Arterial Blood Glucose Arterial Blood Ionized Calcium Urine WBC (Auto) 03/07/20 03/07/20 03/07/20 05:20 17:45 23:32 WBC RBC Hgb Hct MCV MCH RDW Plt Count Lymph % (Auto) Mills % (Auto) Lymph # (Auto) [place] # (Auto) Seg Neutrophils % Seg Neuts % (Manual) Lymphocytes % (Manual) Monocytes % (Manual) Basophils % (Manual) Seg Neutrophils # Seg Neutrophils # Man Lymphocytes # (Manual) Monocytes # (Manual) Eosinophils # (Manual) Basophils # (Manual) PT INR D-Dimer ABG pH POC ABG pCO2 POC ABG pO2 ABG pO2 ABG HCO3 ABG O2 Saturation ABG Base Excess ABG Hemoglobin ABG Oxyhemoglobin ABG Potassium ABG Glucose Oxyhemoglobin Carboxyhemoglobin Sodium Potassium Chloride Carbon Dioxide BUN Creatinine Glucose POC Glucose 113 H 124 H 210 H Calcium Ferritin Total Bilirubin Alkaline Phosphatase Lactate Dehydrogenase Total Creatine Kinase CK-MB (CK-2) Rel Index Troponin T C-Reactive Protein Total Protein Albumin Prealbumin LDL Cholesterol Direct HDL Cholesterol Arterial Blood Glucose Arterial Blood Ionized Calcium Urine WBC (Auto) 03/08/20 03/08/20 03/08/20 05:35 06:43 06:43 WBC 28.9 H RBC 3.53 L Hgb 9.7 L Hct 30.3 L MCV MCH RDW 15.6 H Plt Count 578 H Lymph % (Auto) [place] % (Auto) Lymph # (Auto) [place] # (Auto) Seg Neutrophils % Seg Neuts % (Manual) 93.0 H Lymphocytes % (Manual) 4.0 L Monocytes % (Manual) Basophils % (Manual) Seg Neutrophils # Seg Neutrophils # Man 26.9 H Lymphocytes # (Manual) Monocytes # (Manual) Eosinophils # (Manual) Basophils # (Manual) PT INR D-Dimer ABG pH POC ABG pCO2 POC ABG pO2 ABG pO2 ABG HCO3 ABG O2 Saturation ABG Base Excess ABG Hemoglobin ABG Oxyhemoglobin ABG Potassium ABG Glucose Oxyhemoglobin Carboxyhemoglobin Sodium 146 H Potassium Chloride Carbon Dioxide 35 H BUN 34 H Creatinine 0.3 L D Glucose 125 H POC Glucose 147 H Calcium Ferritin Total Bilirubin Alkaline Phosphatase Lactate Dehydrogenase Total Creatine Kinase CK-MB (CK-2) Rel Index Troponin T C-Reactive Protein Total Protein 5.9 L Albumin 3.2 L Prealbumin LDL Cholesterol Direct HDL Cholesterol Arterial Blood Glucose Arterial Blood Ionized Calcium Urine WBC (Auto) 03/08/20 03/08/20 03/08/20 08:57 11:14 12:34 WBC RBC Hgb Hct MCV MCH RDW Plt Count Lymph % (Auto) Mills % (Auto) Lymph # (Auto) [place] # (Auto) Seg Neutrophils % Seg Neuts % (Manual) Lymphocytes % (Manual) Monocytes % (Manual) Basophils % (Manual) Seg Neutrophils # Seg Neutrophils # Man Lymphocytes # (Manual) Monocytes # (Manual) Eosinophils # (Manual) Basophils # (Manual) PT INR D-Dimer ABG pH POC ABG pCO2 63.1 H POC ABG pO2 ABG pO2 ABG HCO3 ABG O2 Saturation ABG Base Excess ABG Hemoglobin 10.9 L ABG Oxyhemoglobin ABG Potassium ABG Glucose 176 H Oxyhemoglobin Carboxyhemoglobin Sodium Potassium Chloride Carbon Dioxide BUN Creatinine Glucose POC Glucose 171 H Calcium Ferritin Total Bilirubin Alkaline Phosphatase Lactate Dehydrogenase Total Creatine Kinase CK-MB (CK-2) Rel Index Troponin T C-Reactive Protein Total Protein Albumin Prealbumin LDL Cholesterol Direct HDL Cholesterol Arterial Blood Glucose 176 H Arterial Blood Ionized Calcium 4.5 L Urine WBC (Auto) 10.0 H 03/08/20 03/08/20 03/09/20 18:02 23:43 05:49 WBC RBC Hgb Hct MCV MCH RDW Plt Count Lymph % (Auto) [place] % (Auto) Lymph # (Auto) [place] # (Auto) Seg Neutrophils % Seg Neuts % (Manual) Lymphocytes % (Manual) Monocytes % (Manual) Basophils % (Manual) Seg Neutrophils # Seg Neutrophils # Man Lymphocytes # (Manual) Monocytes # (Manual) Eosinophils # (Manual) Basophils # (Manual) PT INR D-Dimer ABG pH POC ABG pCO2 POC ABG pO2 ABG pO2 ABG HCO3 ABG O2 Saturation ABG Base Excess ABG Hemoglobin ABG Oxyhemoglobin ABG Potassium ABG Glucose Oxyhemoglobin Carboxyhemoglobin Sodium Potassium Chloride Carbon Dioxide BUN Creatinine Glucose POC Glucose 157 H 134 H 163 H Calcium Ferritin Total Bilirubin Alkaline Phosphatase Lactate Dehydrogenase Total Creatine Kinase CK-MB (CK-2) Rel Index Troponin T C-Reactive Protein Total Protein Albumin Prealbumin LDL Cholesterol Direct HDL Cholesterol Arterial Blood Glucose Arterial Blood Ionized Calcium Urine WBC (Auto) 03/09/20 03/09/20 03/09/20 08:35 08:35 12:11 WBC 23.4 H RBC 3.36 L Hgb 9.3 L Hct 28.8 L MCV MCH RDW 15.9 H Plt Count 521 H Lymph % (Auto) [place] % (Auto) Lymph # (Auto) [place] # (Auto) Seg Neutrophils % Seg Neuts % (Manual) 87.0 H Lymphocytes % (Manual) 4.0 L Monocytes % (Manual) 9.0 H Basophils % (Manual) Seg Neutrophils # Seg Neutrophils # Man 20.4 H Lymphocytes # (Manual) 0.9 L Monocytes # (Manual) 2.1 H Eosinophils # (Manual) Basophils # (Manual) PT INR D-Dimer ABG pH POC ABG pCO2 POC ABG pO2 ABG pO2 ABG HCO3 ABG O2 Saturation ABG Base Excess ABG Hemoglobin ABG Oxyhemoglobin ABG Potassium ABG Glucose Oxyhemoglobin Carboxyhemoglobin Sodium 147 H Potassium Chloride Carbon Dioxide 37 H BUN 63 H Creatinine Glucose 154 H POC Glucose 128 H Calcium Ferritin Total Bilirubin Alkaline Phosphatase Lactate Dehydrogenase Total Creatine Kinase CK-MB (CK-2) Rel Index Troponin T C-Reactive Protein Total Protein Albumin Prealbumin LDL Cholesterol Direct HDL Cholesterol Arterial Blood Glucose Arterial Blood Ionized Calcium Urine WBC (Auto) 03/09/20 03/10/20 03/10/20 17:51 00:25 05:41 WBC RBC Hgb Hct MCV MCH RDW Plt Count Lymph % (Auto) [place] % (Auto) Lymph # (Auto) [place] # (Auto) Seg Neutrophils % Seg Neuts % (Manual) Lymphocytes % (Manual) Monocytes % (Manual) Basophils % (Manual) Seg Neutrophils # Seg Neutrophils # Man Lymphocytes # (Manual) Monocytes # (Manual) Eosinophils # (Manual) Basophils # (Manual) PT INR D-Dimer ABG pH POC ABG pCO2 POC ABG pO2 ABG pO2 ABG HCO3 ABG O2 Saturation ABG Base Excess ABG Hemoglobin ABG Oxyhemoglobin ABG Potassium ABG Glucose Oxyhemoglobin Carboxyhemoglobin Sodium Potassium Chloride Carbon Dioxide BUN Creatinine Glucose POC Glucose 127 H 128 H 153 H Calcium Ferritin Total Bilirubin Alkaline Phosphatase Lactate Dehydrogenase Total Creatine Kinase CK-MB (CK-2) Rel Index Troponin T C-Reactive Protein Total Protein Albumin Prealbumin LDL Cholesterol Direct HDL Cholesterol Arterial Blood Glucose Arterial Blood Ionized Calcium Urine WBC (Auto) 03/10/20 03/10/20 03/10/20 06:14 06:14 12:02 WBC 18.3 H RBC 3.45 L Hgb 9.5 L Hct 29.5 L MCV MCH RDW 16.1 H Plt Count 494 H Lymph % (Auto) [place] % (Auto) Lymph # (Auto) [place] # (Auto) Seg Neutrophils % Seg Neuts % (Manual) 95.0 H Lymphocytes % (Manual) 1.0 L Monocytes % (Manual) Basophils % (Manual) Seg Neutrophils # Seg Neutrophils # Man 17.4 H Lymphocytes # (Manual) 0.2 L Monocytes # (Manual) Eosinophils # (Manual) Basophils # (Manual) PT INR D-Dimer ABG pH POC ABG pCO2 POC ABG pO2 ABG pO2 ABG HCO3 ABG O2 Saturation ABG Base Excess ABG Hemoglobin ABG Oxyhemoglobin ABG Potassium ABG Glucose Oxyhemoglobin Carboxyhemoglobin Sodium 149 H Potassium Chloride Carbon Dioxide 35 H BUN 34 H Creatinine 0.2 L D Glucose 177 H POC Glucose 151 H Calcium Ferritin Total Bilirubin Alkaline Phosphatase Lactate Dehydrogenase Total Creatine Kinase CK-MB (CK-2) Rel Index Troponin T C-Reactive Protein Total Protein Albumin Prealbumin LDL Cholesterol Direct HDL Cholesterol Arterial Blood Glucose Arterial Blood Ionized Calcium Urine WBC (Auto) 03/10/20 03/10/20 03/11/20 17:41 23:53 05:02 WBC RBC Hgb Hct MCV MCH RDW Plt Count Lymph % (Auto) [place] % (Auto) Lymph # (Auto) [place] # (Auto) Seg Neutrophils % Seg Neuts % (Manual) Lymphocytes % (Manual) Monocytes % (Manual) Basophils % (Manual) Seg Neutrophils # Seg Neutrophils # Man Lymphocytes # (Manual) Monocytes # (Manual) Eosinophils # (Manual) Basophils # (Manual) PT INR D-Dimer ABG pH POC ABG pCO2 POC ABG pO2 ABG pO2 ABG HCO3 ABG O2 Saturation ABG Base Excess ABG Hemoglobin ABG Oxyhemoglobin ABG Potassium ABG Glucose Oxyhemoglobin Carboxyhemoglobin Sodium Potassium Chloride Carbon Dioxide BUN Creatinine Glucose POC Glucose 168 H 142 H 146 H Calcium Ferritin Total Bilirubin Alkaline Phosphatase Lactate Dehydrogenase Total Creatine Kinase CK-MB (CK-2) Rel Index Troponin T C-Reactive Protein Total Protein Albumin Prealbumin LDL Cholesterol Direct HDL Cholesterol Arterial Blood Glucose Arterial Blood Ionized Calcium Urine WBC (Auto) 03/11/20 03/11/20 03/11/20 11:30 14:01 14:01 WBC 19.7 H RBC 3.04 L Hgb 8.7 L Hct 25.8 L MCV MCH RDW 15.6 H Plt Count Lymph % (Auto) [place] % (Auto) Lymph # (Auto) [place] # (Auto) Seg Neutrophils % Seg Neuts % (Manual) Lymphocytes % (Manual) Monocytes % (Manual) Basophils % (Manual) Seg Neutrophils # Seg Neutrophils # Man Lymphocytes # (Manual) Monocytes # (Manual) Eosinophils # (Manual) Basophils # (Manual) PT INR D-Dimer ABG pH POC ABG pCO2 POC ABG pO2 ABG pO2 ABG HCO3 ABG O2 Saturation ABG Base Excess ABG Hemoglobin ABG Oxyhemoglobin ABG Potassium ABG Glucose Oxyhemoglobin Carboxyhemoglobin Sodium 151 H Potassium Chloride Carbon Dioxide 37 H BUN Creatinine < 0.2 L Glucose 171 H POC Glucose 248 H Calcium Ferritin Total Bilirubin Alkaline Phosphatase Lactate Dehydrogenase Total Creatine Kinase CK-MB (CK-2) Rel Index Troponin T C-Reactive Protein Total Protein Albumin Prealbumin LDL Cholesterol Direct HDL Cholesterol Arterial Blood Glucose Arterial Blood Ionized Calcium Urine WBC (Auto) 03/11/20 03/11/20 03/12/20 17:09 23:52 04:39 WBC 19.9 H RBC 3.16 L Hgb 8.9 L Hct 27.5 L MCV MCH RDW 15.7 H Plt Count Lymph % (Auto) 6.8 L [place] % (Auto) Lymph # (Auto) [place] # (Auto) 1.2 H Seg Neutrophils % 86.0 H Seg Neuts % (Manual) Lymphocytes % (Manual) Monocytes % (Manual) Basophils % (Manual) Seg Neutrophils # 17.1 H Seg Neutrophils # Man Lymphocytes # (Manual) Monocytes # (Manual) Eosinophils # (Manual) Basophils # (Manual) PT INR D-Dimer ABG pH POC ABG pCO2 POC ABG pO2 ABG pO2 ABG HCO3 ABG O2 Saturation ABG Base Excess ABG Hemoglobin ABG Oxyhemoglobin ABG Potassium ABG Glucose Oxyhemoglobin Carboxyhemoglobin Sodium Potassium Chloride Carbon Dioxide BUN Creatinine Glucose POC Glucose 124 H 131 H Calcium Ferritin Total Bilirubin Alkaline Phosphatase Lactate Dehydrogenase Total Creatine Kinase CK-MB (CK-2) Rel Index Troponin T C-Reactive Protein Total Protein Albumin Prealbumin LDL Cholesterol Direct HDL Cholesterol Arterial Blood Glucose Arterial Blood Ionized Calcium Urine WBC (Auto) 03/12/20 03/12/20 03/12/20 04:39 05:28 11:34 WBC RBC Hgb Hct MCV MCH RDW Plt Count Lymph % (Auto) [place] % (Auto) Lymph # (Auto) [place] # (Auto) Seg Neutrophils % Seg Neuts % (Manual) Lymphocytes % (Manual) Monocytes % (Manual) Basophils % (Manual) Seg Neutrophils # Seg Neutrophils # Man Lymphocytes # (Manual) Monocytes # (Manual) Eosinophils # (Manual) Basophils # (Manual) PT INR D-Dimer ABG pH POC ABG pCO2 POC ABG pO2 ABG pO2 ABG HCO3 ABG O2 Saturation ABG Base Excess ABG Hemoglobin ABG Oxyhemoglobin ABG Potassium ABG Glucose Oxyhemoglobin Carboxyhemoglobin Sodium 147 H Potassium Chloride Carbon Dioxide 40 H BUN Creatinine < 0.2 L Glucose 175 H POC Glucose 167 H 144 H Calcium Ferritin Total Bilirubin Alkaline Phosphatase Lactate Dehydrogenase Total Creatine Kinase CK-MB (CK-2) Rel Index Troponin T C-Reactive Protein Total Protein Albumin Prealbumin LDL Cholesterol Direct HDL Cholesterol Arterial Blood Glucose Arterial Blood Ionized Calcium Urine WBC (Auto) 03/12/20 03/12/20 03/13/20 17:32 23:57 05:57 WBC RBC Hgb Hct MCV MCH RDW Plt Count Lymph % (Auto) [place] % (Auto) Lymph # (Auto) [place] # (Auto) Seg Neutrophils % Seg Neuts % (Manual) Lymphocytes % (Manual) Monocytes % (Manual) Basophils % (Manual) Seg Neutrophils # Seg Neutrophils # Man Lymphocytes # (Manual) Monocytes # (Manual) Eosinophils # (Manual) Basophils # (Manual) PT INR D-Dimer ABG pH POC ABG pCO2 POC ABG pO2 ABG pO2 ABG HCO3 ABG O2 Saturation ABG Base Excess ABG Hemoglobin ABG Oxyhemoglobin ABG Potassium ABG Glucose Oxyhemoglobin Carboxyhemoglobin Sodium Potassium Chloride Carbon Dioxide BUN Creatinine Glucose POC Glucose 141 H 137 H 161 H Calcium Ferritin Total Bilirubin Alkaline Phosphatase Lactate Dehydrogenase Total Creatine Kinase CK-MB (CK-2) Rel Index Troponin T C-Reactive Protein Total Protein Albumin Prealbumin LDL Cholesterol Direct HDL Cholesterol Arterial Blood Glucose Arterial Blood Ionized Calcium Urine WBC (Auto) 03/13/20 03/13/20 03/13/20 12:28 14:14 18:39 WBC RBC Hgb Hct MCV MCH RDW Plt Count Lymph % (Auto) [place] % (Auto) Lymph # (Auto) [place] # (Auto) Seg Neutrophils % Seg Neuts % (Manual) Lymphocytes % (Manual) Monocytes % (Manual) Basophils % (Manual) Seg Neutrophils # Seg Neutrophils # Man Lymphocytes # (Manual) Monocytes # (Manual) Eosinophils # (Manual) Basophils # (Manual) PT INR D-Dimer ABG pH POC ABG pCO2 POC ABG pO2 ABG pO2 ABG HCO3 ABG O2 Saturation ABG Base Excess ABG Hemoglobin ABG Oxyhemoglobin ABG Potassium ABG Glucose Oxyhemoglobin Carboxyhemoglobin Sodium Potassium Chloride Carbon Dioxide 39 H BUN Creatinine < 0.2 L Glucose 129 H POC Glucose 130 H 125 H Calcium Ferritin Total Bilirubin Alkaline Phosphatase Lactate Dehydrogenase Total Creatine Kinase CK-MB (CK-2) Rel Index Troponin T C-Reactive Protein Total Protein Albumin Prealbumin LDL Cholesterol Direct HDL Cholesterol Arterial Blood Glucose Arterial Blood Ionized Calcium Urine WBC (Auto) 03/13/20 03/14/20 03/14/20 23:33 05:24 08:07 WBC 16.8 H RBC 2.81 L Hgb 7.9 L Hct 23.9 L MCV MCH RDW 15.9 H Plt Count Lymph % (Auto) [place] % (Auto) Lymph # (Auto) [place] # (Auto) Seg Neutrophils % Seg Neuts % (Manual) 84.0 H Lymphocytes % (Manual) 10.0 L Monocytes % (Manual) Basophils % (Manual) Seg Neutrophils # Seg Neutrophils # Man 14.1 H Lymphocytes # (Manual) Monocytes # (Manual) Eosinophils # (Manual) Basophils # (Manual) PT INR D-Dimer ABG pH POC ABG pCO2 POC ABG pO2 ABG pO2 ABG HCO3 ABG O2 Saturation ABG Base Excess ABG Hemoglobin ABG Oxyhemoglobin ABG Potassium ABG Glucose Oxyhemoglobin Carboxyhemoglobin Sodium Potassium Chloride Carbon Dioxide BUN Creatinine Glucose POC Glucose 146 H 125 H Calcium Ferritin Total Bilirubin Alkaline Phosphatase Lactate Dehydrogenase Total Creatine Kinase CK-MB (CK-2) Rel Index Troponin T C-Reactive Protein Total Protein Albumin Prealbumin LDL Cholesterol Direct HDL Cholesterol Arterial Blood Glucose Arterial Blood Ionized Calcium Urine WBC (Auto) 03/14/20 03/14/20 03/14/20 08:07 12:21 18:26 WBC RBC Hgb Hct MCV MCH RDW Plt Count Lymph % (Auto) [place] % (Auto) Lymph # (Auto) [place] # (Auto) Seg Neutrophils % Seg Neuts % (Manual) Lymphocytes % (Manual) Monocytes % (Manual) Basophils % (Manual) Seg Neutrophils # Seg Neutrophils # Man Lymphocytes # (Manual) Monocytes # (Manual) Eosinophils # (Manual) Basophils # (Manual) PT INR D-Dimer ABG pH POC ABG pCO2 POC ABG pO2 ABG pO2 ABG HCO3 ABG O2 Saturation ABG Base Excess ABG Hemoglobin ABG Oxyhemoglobin ABG Potassium ABG Glucose Oxyhemoglobin Carboxyhemoglobin Sodium Potassium Chloride 97.0 L Carbon Dioxide 37 H BUN Creatinine < 0.2 L Glucose 129 H POC Glucose 109 H 142 H Calcium 8.3 L Ferritin Total Bilirubin Alkaline Phosphatase Lactate Dehydrogenase Total Creatine Kinase CK-MB (CK-2) Rel Index Troponin T C-Reactive Protein Total Protein Albumin Prealbumin LDL Cholesterol Direct HDL Cholesterol Arterial Blood Glucose Arterial Blood Ionized Calcium Urine WBC (Auto) 03/14/20 03/15/20 03/15/20 23:57 05:46 08:06 WBC 19.7 H RBC 3.29 L Hgb 9.1 L Hct 28.0 L MCV MCH RDW 15.9 H Plt Count Lymph % (Auto) [place] % (Auto) Lymph # (Auto) [place] # (Auto) Seg Neutrophils % Seg Neuts % (Manual) Lymphocytes % (Manual) Monocytes % (Manual) Basophils % (Manual) Seg Neutrophils # Seg Neutrophils # Man Lymphocytes # (Manual) Monocytes # (Manual) Eosinophils # (Manual) Basophils # (Manual) PT INR D-Dimer ABG pH POC ABG pCO2 POC ABG pO2 ABG pO2 ABG HCO3 ABG O2 Saturation ABG Base Excess ABG Hemoglobin ABG Oxyhemoglobin ABG Potassium ABG Glucose Oxyhemoglobin Carboxyhemoglobin Sodium Potassium Chloride Carbon Dioxide BUN Creatinine Glucose POC Glucose 157 H 118 H Calcium Ferritin Total Bilirubin Alkaline Phosphatase Lactate Dehydrogenase Total Creatine Kinase CK-MB (CK-2) Rel Index Troponin T C-Reactive Protein Total Protein Albumin Prealbumin LDL Cholesterol Direct HDL Cholesterol Arterial Blood Glucose Arterial Blood Ionized Calcium Urine WBC (Auto) 03/15/20 03/15/20 03/15/20 08:06 12:44 18:09 WBC RBC Hgb Hct MCV MCH RDW Plt Count Lymph % (Auto) [place] % (Auto) Lymph # (Auto) [place] # (Auto) Seg Neutrophils % Seg Neuts % (Manual) Lymphocytes % (Manual) Monocytes % (Manual) Basophils % (Manual) Seg Neutrophils # Seg Neutrophils # Man Lymphocytes # (Manual) Monocytes # (Manual) Eosinophils # (Manual) Basophils # (Manual) PT INR D-Dimer ABG pH POC ABG pCO2 POC ABG pO2 ABG pO2 ABG HCO3 ABG O2 Saturation ABG Base Excess ABG Hemoglobin ABG Oxyhemoglobin ABG Potassium ABG Glucose Oxyhemoglobin Carboxyhemoglobin Sodium 136 L Potassium Chloride 93.6 L Carbon Dioxide 37 H BUN Creatinine < 0.2 L Glucose 132 H POC Glucose 151 H 164 H Calcium Ferritin Total Bilirubin Alkaline Phosphatase Lactate Dehydrogenase Total Creatine Kinase CK-MB (CK-2) Rel Index Troponin T C-Reactive Protein Total Protein Albumin Prealbumin LDL Cholesterol Direct HDL Cholesterol Arterial Blood Glucose Arterial Blood Ionized Calcium Urine WBC (Auto) 03/15/20 03/16/20 03/16/20 23:26 05:39 11:58 WBC RBC Hgb Hct MCV MCH RDW Plt Count Lymph % (Auto) [place] % (Auto) Lymph # (Auto) [place] # (Auto) Seg Neutrophils % Seg Neuts % (Manual) Lymphocytes % (Manual) Monocytes % (Manual) Basophils % (Manual) Seg Neutrophils # Seg Neutrophils # Man Lymphocytes # (Manual) Monocytes # (Manual) Eosinophils # (Manual) Basophils # (Manual) PT INR D-Dimer ABG pH POC ABG pCO2 POC ABG pO2 ABG pO2 ABG HCO3 ABG O2 Saturation ABG Base Excess ABG Hemoglobin ABG Oxyhemoglobin ABG Potassium ABG Glucose Oxyhemoglobin Carboxyhemoglobin Sodium Potassium Chloride Carbon Dioxide BUN Creatinine Glucose POC Glucose 136 H 116 H 109 H Calcium Ferritin Total Bilirubin Alkaline Phosphatase Lactate Dehydrogenase Total Creatine Kinase CK-MB (CK-2) Rel Index Troponin T C-Reactive Protein Total Protein Albumin Prealbumin LDL Cholesterol Direct HDL Cholesterol Arterial Blood Glucose Arterial Blood Ionized Calcium Urine WBC (Auto) 03/16/20 03/17/20 03/17/20 23:56 04:40 04:40 WBC 18.0 H RBC 3.33 L Hgb 9.5 L Hct 28.8 L MCV MCH RDW 16.4 H Plt Count 499 H Lymph % (Auto) [place] % (Auto) Lymph # (Auto) [place] # (Auto) Seg Neutrophils % Seg Neuts % (Manual) 82.0 H Lymphocytes % (Manual) 8.0 L Monocytes % (Manual) Basophils % (Manual) Seg Neutrophils # Seg Neutrophils # Man 14.8 H Lymphocytes # (Manual) Monocytes # (Manual) 1.3 H Eosinophils # (Manual) Basophils # (Manual) 0.2 H PT INR D-Dimer ABG pH POC ABG pCO2 POC ABG pO2 ABG pO2 ABG HCO3 ABG O2 Saturation ABG Base Excess ABG Hemoglobin ABG Oxyhemoglobin ABG Potassium ABG Glucose Oxyhemoglobin Carboxyhemoglobin Sodium Potassium Chloride 97.7 L Carbon Dioxide 32 H BUN Creatinine < 0.2 L Glucose 114 H POC Glucose 131 H Calcium Ferritin Total Bilirubin Alkaline Phosphatase Lactate Dehydrogenase Total Creatine Kinase CK-MB (CK-2) Rel Index Troponin T C-Reactive Protein Total Protein Albumin Prealbumin LDL Cholesterol Direct HDL Cholesterol Arterial Blood Glucose Arterial Blood Ionized Calcium Urine WBC (Auto) 03/18/20 03/18/20 03/18/20 00:21 05:21 11:55 WBC RBC Hgb Hct MCV MCH RDW Plt Count Lymph % (Auto) Mills % (Auto) Lymph # (Auto) [place] # (Auto) Seg Neutrophils % Seg Neuts % (Manual) Lymphocytes % (Manual) Monocytes % (Manual) Basophils % (Manual) Seg Neutrophils # Seg Neutrophils # Man Lymphocytes # (Manual) Monocytes # (Manual) Eosinophils # (Manual) Basophils # (Manual) PT INR D-Dimer ABG pH POC ABG pCO2 POC ABG pO2 ABG pO2 ABG HCO3 ABG O2 Saturation ABG Base Excess ABG Hemoglobin ABG Oxyhemoglobin ABG Potassium ABG Glucose Oxyhemoglobin Carboxyhemoglobin Sodium Potassium Chloride Carbon Dioxide BUN Creatinine Glucose POC Glucose 124 H 138 H 119 H Calcium Ferritin Total Bilirubin Alkaline Phosphatase Lactate Dehydrogenase Total Creatine Kinase CK-MB (CK-2) Rel Index Troponin T C-Reactive Protein Total Protein Albumin Prealbumin LDL Cholesterol Direct HDL Cholesterol Arterial Blood Glucose Arterial Blood Ionized Calcium Urine WBC (Auto) 03/18/20 03/18/20 03/19/20 17:03 23:58 05:24 WBC RBC Hgb Hct MCV MCH RDW Plt Count Lymph % (Auto) [place] % (Auto) Lymph # (Auto) [place] # (Auto) Seg Neutrophils % Seg Neuts % (Manual) Lymphocytes % (Manual) Monocytes % (Manual) Basophils % (Manual) Seg Neutrophils # Seg Neutrophils # Man Lymphocytes # (Manual) Monocytes # (Manual) Eosinophils # (Manual) Basophils # (Manual) PT INR D-Dimer ABG pH POC ABG pCO2 POC ABG pO2 ABG pO2 ABG HCO3 ABG O2 Saturation ABG Base Excess ABG Hemoglobin ABG Oxyhemoglobin ABG Potassium ABG Glucose Oxyhemoglobin Carboxyhemoglobin Sodium Potassium Chloride Carbon Dioxide BUN Creatinine Glucose POC Glucose 128 H 128 H 115 H Calcium Ferritin Total Bilirubin Alkaline Phosphatase Lactate Dehydrogenase Total Creatine Kinase CK-MB (CK-2) Rel Index Troponin T C-Reactive Protein Total Protein Albumin Prealbumin LDL Cholesterol Direct HDL Cholesterol Arterial Blood Glucose Arterial Blood Ionized Calcium Urine WBC (Auto) 03/19/20 03/19/20 03/19/20 08:05 08:05 11:56 WBC 16.8 H RBC 3.36 L Hgb 9.4 L Hct 28.8 L MCV MCH RDW 17.4 H Plt Count 567 H Lymph % (Auto) 7.8 L [place] % (Auto) Lymph # (Auto) [place] # (Auto) 1.2 H Seg Neutrophils % 83.5 H Seg Neuts % (Manual) Lymphocytes % (Manual) Monocytes % (Manual) Basophils % (Manual) Seg Neutrophils # 14.1 H Seg Neutrophils # Man Lymphocytes # (Manual) Monocytes # (Manual) Eosinophils # (Manual) Basophils # (Manual) PT INR D-Dimer ABG pH POC ABG pCO2 POC ABG pO2 ABG pO2 ABG HCO3 ABG O2 Saturation ABG Base Excess ABG Hemoglobin ABG Oxyhemoglobin ABG Potassium ABG Glucose Oxyhemoglobin Carboxyhemoglobin Sodium Potassium Chloride Carbon Dioxide 36 H BUN Creatinine < 0.2 L Glucose 135 H POC Glucose 128 H Calcium Ferritin Total Bilirubin Alkaline Phosphatase Lactate Dehydrogenase Total Creatine Kinase CK-MB (CK-2) Rel Index Troponin T C-Reactive Protein Total Protein Albumin Prealbumin LDL Cholesterol Direct HDL Cholesterol Arterial Blood Glucose Arterial Blood Ionized Calcium Urine WBC (Auto) 03/19/20 03/20/20 03/20/20 23:59 05:12 16:52 WBC RBC Hgb Hct MCV MCH RDW Plt Count Lymph % (Auto) [place] % (Auto) Lymph # (Auto) [place] # (Auto) Seg Neutrophils % Seg Neuts % (Manual) Lymphocytes % (Manual) Monocytes % (Manual) Basophils % (Manual) Seg Neutrophils # Seg Neutrophils # Man Lymphocytes # (Manual) Monocytes # (Manual) Eosinophils # (Manual) Basophils # (Manual) PT INR D-Dimer ABG pH POC ABG pCO2 POC ABG pO2 ABG pO2 ABG HCO3 ABG O2 Saturation ABG Base Excess ABG Hemoglobin ABG Oxyhemoglobin ABG Potassium ABG Glucose Oxyhemoglobin Carboxyhemoglobin Sodium Potassium Chloride Carbon Dioxide BUN Creatinine Glucose POC Glucose 120 H 131 H 124 H Calcium Ferritin Total Bilirubin Alkaline Phosphatase Lactate Dehydrogenase Total Creatine Kinase CK-MB (CK-2) Rel Index Troponin T C-Reactive Protein Total Protein Albumin Prealbumin LDL Cholesterol Direct HDL Cholesterol Arterial Blood Glucose Arterial Blood Ionized Calcium Urine WBC (Auto) 03/20/20 03/21/20 03/21/20 23:35 04:50 07:35 WBC 15.2 H RBC 3.39 L Hgb 9.4 L Hct 29.4 L MCV MCH RDW 17.6 H Plt Count 518 H Lymph % (Auto) [place] % (Auto) Lymph # (Auto) [place] # (Auto) Seg Neutrophils % Seg Neuts % (Manual) 83.0 H Lymphocytes % (Manual) 10.0 L Monocytes % (Manual) Basophils % (Manual) 2.0 H Seg Neutrophils # Seg Neutrophils # Man 12.6 H Lymphocytes # (Manual) Monocytes # (Manual) Eosinophils # (Manual) Basophils # (Manual) 0.3 H PT INR D-Dimer ABG pH POC ABG pCO2 POC ABG pO2 ABG pO2 ABG HCO3 ABG O2 Saturation ABG Base Excess ABG Hemoglobin ABG Oxyhemoglobin ABG Potassium ABG Glucose Oxyhemoglobin Carboxyhemoglobin Sodium Potassium Chloride Carbon Dioxide BUN Creatinine Glucose POC Glucose 125 H 127 H Calcium Ferritin Total Bilirubin Alkaline Phosphatase Lactate Dehydrogenase Total Creatine Kinase CK-MB (CK-2) Rel Index Troponin T C-Reactive Protein Total Protein Albumin Prealbumin LDL Cholesterol Direct HDL Cholesterol Arterial Blood Glucose Arterial Blood Ionized Calcium Urine WBC (Auto) 03/21/20 03/21/20 03/21/20 07:35 11:45 17:22 WBC RBC Hgb Hct MCV MCH RDW Plt Count Lymph % (Auto) Mills % (Auto) Lymph # (Auto) [place] # (Auto) Seg Neutrophils % Seg Neuts % (Manual) Lymphocytes % (Manual) Monocytes % (Manual) Basophils % (Manual) Seg Neutrophils # Seg Neutrophils # Man Lymphocytes # (Manual) Monocytes # (Manual) Eosinophils # (Manual) Basophils # (Manual) PT INR D-Dimer ABG pH POC ABG pCO2 POC ABG pO2 ABG pO2 ABG HCO3 ABG O2 Saturation ABG Base Excess ABG Hemoglobin ABG Oxyhemoglobin ABG Potassium ABG Glucose Oxyhemoglobin Carboxyhemoglobin Sodium 136 L Potassium Chloride 97.7 L Carbon Dioxide 32 H BUN Creatinine < 0.2 L Glucose 103 H POC Glucose 126 H 120 H Calcium Ferritin Total Bilirubin Alkaline Phosphatase Lactate Dehydrogenase Total Creatine Kinase CK-MB (CK-2) Rel Index Troponin T C-Reactive Protein Total Protein Albumin Prealbumin LDL Cholesterol Direct HDL Cholesterol Arterial Blood Glucose Arterial Blood Ionized Calcium Urine WBC (Auto) 03/22/20 03/22/20 03/22/20 05:09 06:34 06:34 WBC 17.5 H RBC 3.52 L Hgb 10.0 L Hct 30.7 L MCV MCH RDW 17.5 H Plt Count 499 H Lymph % (Auto) [place] % (Auto) Lymph # (Auto) [place] # (Auto) Seg Neutrophils % Seg Neuts % (Manual) 80.0 H Lymphocytes % (Manual) 10.0 L Monocytes % (Manual) Basophils % (Manual) Seg Neutrophils # Seg Neutrophils # Man 14.0 H Lymphocytes # (Manual) Monocytes # (Manual) Eosinophils # (Manual) Basophils # (Manual) PT INR D-Dimer ABG pH POC ABG pCO2 POC ABG pO2 ABG pO2 ABG HCO3 ABG O2 Saturation ABG Base Excess ABG Hemoglobin ABG Oxyhemoglobin ABG Potassium ABG Glucose Oxyhemoglobin Carboxyhemoglobin Sodium Potassium Chloride 96.6 L Carbon Dioxide 38 H BUN Creatinine < 0.2 L Glucose 139 H POC Glucose 125 H Calcium Ferritin Total Bilirubin Alkaline Phosphatase Lactate Dehydrogenase Total Creatine Kinase CK-MB (CK-2) Rel Index Troponin T C-Reactive Protein Total Protein Albumin Prealbumin LDL Cholesterol Direct HDL Cholesterol Arterial Blood Glucose Arterial Blood Ionized Calcium Urine WBC (Auto) 03/22/20 03/22/20 03/22/20 11:45 18:00 23:32 WBC RBC Hgb Hct MCV MCH RDW Plt Count Lymph % (Auto) [place] % (Auto) Lymph # (Auto) [place] # (Auto) Seg Neutrophils % Seg Neuts % (Manual) Lymphocytes % (Manual) Monocytes % (Manual) Basophils % (Manual) Seg Neutrophils # Seg Neutrophils # Man Lymphocytes # (Manual) Monocytes # (Manual) Eosinophils # (Manual) Basophils # (Manual) PT INR D-Dimer ABG pH POC ABG pCO2 POC ABG pO2 ABG pO2 ABG HCO3 ABG O2 Saturation ABG Base Excess ABG Hemoglobin ABG Oxyhemoglobin ABG Potassium ABG Glucose Oxyhemoglobin Carboxyhemoglobin Sodium Potassium Chloride Carbon Dioxide BUN Creatinine Glucose POC Glucose 135 H 133 H Calcium Ferritin Total Bilirubin Alkaline Phosphatase Lactate Dehydrogenase Total Creatine Kinase CK-MB (CK-2) Rel Index Troponin T 0.113 H* C-Reactive Protein Total Protein Albumin Prealbumin LDL Cholesterol Direct HDL Cholesterol Arterial Blood Glucose Arterial Blood Ionized Calcium Urine WBC (Auto) 03/23/20 03/23/20 03/23/20 01:47 06:21 07:57 WBC RBC Hgb Hct MCV MCH RDW Plt Count Lymph % (Auto) [place] % (Auto) Lymph # (Auto) [place] # (Auto) Seg Neutrophils % Seg Neuts % (Manual) Lymphocytes % (Manual) Monocytes % (Manual) Basophils % (Manual) Seg Neutrophils # Seg Neutrophils # Man Lymphocytes # (Manual) Monocytes # (Manual) Eosinophils # (Manual) Basophils # (Manual) PT INR D-Dimer ABG pH POC ABG pCO2 POC ABG pO2 ABG pO2 ABG HCO3 ABG O2 Saturation ABG Base Excess ABG Hemoglobin ABG Oxyhemoglobin ABG Potassium ABG Glucose Oxyhemoglobin Carboxyhemoglobin Sodium Potassium Chloride Carbon Dioxide BUN Creatinine Glucose POC Glucose 130 H Calcium Ferritin Total Bilirubin Alkaline Phosphatase Lactate Dehydrogenase Total Creatine Kinase CK-MB (CK-2) Rel Index Troponin T 0.143 H* D 0.105 H* D C-Reactive Protein Total Protein Albumin Prealbumin LDL Cholesterol Direct HDL Cholesterol Arterial Blood Glucose Arterial Blood Ionized Calcium Urine WBC (Auto) 03/23/20 03/24/20 03/24/20 12:02 05:33 07:15 WBC 18.0 H RBC Hgb 11.0 L Hct 34.0 L MCV MCH RDW 17.4 H Plt Count 520 H Lymph % (Auto) [place] % (Auto) Lymph # (Auto) [place] # (Auto) Seg Neutrophils % Seg Neuts % (Manual) 88.0 H Lymphocytes % (Manual) 7.0 L Monocytes % (Manual) Basophils % (Manual) Seg Neutrophils # Seg Neutrophils # Man 15.8 H Lymphocytes # (Manual) Monocytes # (Manual) Eosinophils # (Manual) Basophils # (Manual) PT INR D-Dimer ABG pH POC ABG pCO2 POC ABG pO2 ABG pO2 ABG HCO3 ABG O2 Saturation ABG Base Excess ABG Hemoglobin ABG Oxyhemoglobin ABG Potassium ABG Glucose Oxyhemoglobin Carboxyhemoglobin Sodium Potassium Chloride Carbon Dioxide BUN Creatinine Glucose POC Glucose 137 H 112 H Calcium Ferritin Total Bilirubin Alkaline Phosphatase Lactate Dehydrogenase Total Creatine Kinase CK-MB (CK-2) Rel Index Troponin T C-Reactive Protein Total Protein Albumin Prealbumin LDL Cholesterol Direct HDL Cholesterol Arterial Blood Glucose Arterial Blood Ionized Calcium Urine WBC (Auto) 03/24/20 03/24/20 03/24/20 07:15 11:22 23:30 WBC RBC Hgb Hct MCV MCH RDW Plt Count Lymph % (Auto) [place] % (Auto) Lymph # (Auto) [place] # (Auto) Seg Neutrophils % Seg Neuts % (Manual) Lymphocytes % (Manual) Monocytes % (Manual) Basophils % (Manual) Seg Neutrophils # Seg Neutrophils # Man Lymphocytes # (Manual) Monocytes # (Manual) Eosinophils # (Manual) Basophils # (Manual) PT INR D-Dimer ABG pH POC ABG pCO2 POC ABG pO2 ABG pO2 ABG HCO3 ABG O2 Saturation ABG Base Excess ABG Hemoglobin ABG Oxyhemoglobin ABG Potassium ABG Glucose Oxyhemoglobin Carboxyhemoglobin Sodium Potassium Chloride 96.6 L Carbon Dioxide 38 H BUN Creatinine < 0.2 L Glucose 141 H POC Glucose 130 H 120 H Calcium Ferritin Total Bilirubin Alkaline Phosphatase Lactate Dehydrogenase Total Creatine Kinase CK-MB (CK-2) Rel Index Troponin T C-Reactive Protein Total Protein Albumin Prealbumin LDL Cholesterol Direct HDL Cholesterol Arterial Blood Glucose Arterial Blood Ionized Calcium Urine WBC (Auto) 03/25/20 03/25/20 03/25/20 05:48 17:53 23:18 WBC RBC Hgb Hct MCV MCH RDW Plt Count Lymph % (Auto) [place] % (Auto) Lymph # (Auto) [place] # (Auto) Seg Neutrophils % Seg Neuts % (Manual) Lymphocytes % (Manual) Monocytes % (Manual) Basophils % (Manual) Seg Neutrophils # Seg Neutrophils # Man Lymphocytes # (Manual) Monocytes # (Manual) Eosinophils # (Manual) Basophils # (Manual) PT INR D-Dimer ABG pH POC ABG pCO2 POC ABG pO2 ABG pO2 ABG HCO3 ABG O2 Saturation ABG Base Excess ABG Hemoglobin ABG Oxyhemoglobin ABG Potassium ABG Glucose Oxyhemoglobin Carboxyhemoglobin Sodium Potassium Chloride Carbon Dioxide BUN Creatinine Glucose POC Glucose 124 H 109 H 131 H Calcium Ferritin Total Bilirubin Alkaline Phosphatase Lactate Dehydrogenase Total Creatine Kinase CK-MB (CK-2) Rel Index Troponin T C-Reactive Protein Total Protein Albumin Prealbumin LDL Cholesterol Direct HDL Cholesterol Arterial Blood Glucose Arterial Blood Ionized Calcium Urine WBC (Auto) 03/26/20 03/26/20 03/26/20 05:21 08:49 08:49 WBC 19.7 H RBC Hgb 10.7 L Hct 33.5 L MCV MCH 27 L RDW 17.1 H Plt Count 480 H Lymph % (Auto) 5.7 L [place] % (Auto) Lymph # (Auto) 1.1 L [place] # (Auto) 1.2 H Seg Neutrophils % 87.7 H Seg Neuts % (Manual) Lymphocytes % (Manual) Monocytes % (Manual) Basophils % (Manual) Seg Neutrophils # 17.2 H Seg Neutrophils # Man Lymphocytes # (Manual) Monocytes # (Manual) Eosinophils # (Manual) Basophils # (Manual) PT INR D-Dimer ABG pH POC ABG pCO2 POC ABG pO2 ABG pO2 ABG HCO3 ABG O2 Saturation ABG Base Excess ABG Hemoglobin ABG Oxyhemoglobin ABG Potassium ABG Glucose Oxyhemoglobin Carboxyhemoglobin Sodium Potassium Chloride 97.2 L Carbon Dioxide 36 H BUN Creatinine < 0.2 L Glucose 127 H POC Glucose 116 H Calcium Ferritin Total Bilirubin Alkaline Phosphatase Lactate Dehydrogenase Total Creatine Kinase CK-MB (CK-2) Rel Index Troponin T C-Reactive Protein Total Protein Albumin Prealbumin LDL Cholesterol Direct HDL Cholesterol Arterial Blood Glucose Arterial Blood Ionized Calcium Urine WBC (Auto) 03/26/20 03/26/20 03/26/20 11:38 18:44 23:06 WBC RBC Hgb Hct MCV MCH RDW Plt Count Lymph % (Auto) [place] % (Auto) Lymph # (Auto) [place] # (Auto) Seg Neutrophils % Seg Neuts % (Manual) Lymphocytes % (Manual) Monocytes % (Manual) Basophils % (Manual) Seg Neutrophils # Seg Neutrophils # Man Lymphocytes # (Manual) Monocytes # (Manual) Eosinophils # (Manual) Basophils # (Manual) PT INR D-Dimer ABG pH POC ABG pCO2 POC ABG pO2 ABG pO2 ABG HCO3 ABG O2 Saturation ABG Base Excess ABG Hemoglobin ABG Oxyhemoglobin ABG Potassium ABG Glucose Oxyhemoglobin Carboxyhemoglobin Sodium Potassium Chloride Carbon Dioxide BUN Creatinine Glucose POC Glucose 120 H 111 H 134 H Calcium Ferritin Total Bilirubin Alkaline Phosphatase Lactate Dehydrogenase Total Creatine Kinase CK-MB (CK-2) Rel Index Troponin T C-Reactive Protein Total Protein Albumin Prealbumin LDL Cholesterol Direct HDL Cholesterol Arterial Blood Glucose Arterial Blood Ionized Calcium Urine WBC (Auto) 03/27/20 03/27/20 03/27/20 05:41 05:59 05:59 WBC 18.6 H RBC Hgb 10.1 L Hct 31.4 L MCV MCH RDW 17.2 H Plt Count Lymph % (Auto) 8.0 L [place] % (Auto) Lymph # (Auto) [place] # (Auto) 1.2 H Seg Neutrophils % 84.7 H Seg Neuts % (Manual) Lymphocytes % (Manual) Monocytes % (Manual) Basophils % (Manual) Seg Neutrophils # 15.8 H Seg Neutrophils # Man Lymphocytes # (Manual) Monocytes # (Manual) Eosinophils # (Manual) Basophils # (Manual) PT INR D-Dimer ABG pH POC ABG pCO2 POC ABG pO2 ABG pO2 ABG HCO3 ABG O2 Saturation ABG Base Excess ABG Hemoglobin ABG Oxyhemoglobin ABG Potassium ABG Glucose Oxyhemoglobin Carboxyhemoglobin Sodium Potassium Chloride Carbon Dioxide 34 H BUN Creatinine < 0.2 L Glucose 127 H POC Glucose 129 H Calcium Ferritin Total Bilirubin Alkaline Phosphatase Lactate Dehydrogenase Total Creatine Kinase CK-MB (CK-2) Rel Index Troponin T C-Reactive Protein Total Protein Albumin Prealbumin LDL Cholesterol Direct HDL Cholesterol Arterial Blood Glucose Arterial Blood Ionized Calcium Urine WBC (Auto) 03/27/20 03/27/20 03/28/20 17:28 23:22 05:23 WBC RBC Hgb Hct MCV MCH RDW Plt Count Lymph % (Auto) [place] % (Auto) Lymph # (Auto) [place] # (Auto) Seg Neutrophils % Seg Neuts % (Manual) Lymphocytes % (Manual) Monocytes % (Manual) Basophils % (Manual) Seg Neutrophils # Seg Neutrophils # Man Lymphocytes # (Manual) Monocytes # (Manual) Eosinophils # (Manual) Basophils # (Manual) PT INR D-Dimer ABG pH POC ABG pCO2 POC ABG pO2 ABG pO2 ABG HCO3 ABG O2 Saturation ABG Base Excess ABG Hemoglobin ABG Oxyhemoglobin ABG Potassium ABG Glucose Oxyhemoglobin Carboxyhemoglobin Sodium Potassium Chloride Carbon Dioxide BUN Creatinine Glucose POC Glucose 108 H 119 H 129 H Calcium Ferritin Total Bilirubin Alkaline Phosphatase Lactate Dehydrogenase Total Creatine Kinase CK-MB (CK-2) Rel Index Troponin T C-Reactive Protein Total Protein Albumin Prealbumin LDL Cholesterol Direct HDL Cholesterol Arterial Blood Glucose Arterial Blood Ionized Calcium Urine WBC (Auto) 03/28/20 03/28/20 03/28/20 10:28 10:28 11:36 WBC 23.6 H RBC 3.62 L Hgb 10.0 L Hct 30.8 L MCV MCH RDW 16.4 H Plt Count Lymph % (Auto) [place] % (Auto) Lymph # (Auto) [place] # (Auto) Seg Neutrophils % Seg Neuts % (Manual) 89.0 H Lymphocytes % (Manual) 5.0 L Monocytes % (Manual) Basophils % (Manual) Seg Neutrophils # Seg Neutrophils # Man 21.0 H Lymphocytes # (Manual) Monocytes # (Manual) 1.2 H Eosinophils # (Manual) Basophils # (Manual) 0.2 H PT INR D-Dimer ABG pH POC ABG pCO2 POC ABG pO2 ABG pO2 ABG HCO3 ABG O2 Saturation ABG Base Excess ABG Hemoglobin ABG Oxyhemoglobin ABG Potassium ABG Glucose Oxyhemoglobin Carboxyhemoglobin Sodium 134 L Potassium Chloride 94.2 L Carbon Dioxide 35 H BUN Creatinine < 0.2 L Glucose 134 H POC Glucose Calcium Ferritin Total Bilirubin Alkaline Phosphatase Lactate Dehydrogenase Total Creatine Kinase CK-MB (CK-2) Rel Index Troponin T C-Reactive Protein Total Protein Albumin Prealbumin LDL Cholesterol Direct HDL Cholesterol Arterial Blood Glucose Arterial Blood Ionized Calcium Urine WBC (Auto) 39.0 H 03/28/20 03/28/20 03/28/20 11:51 17:08 17:17 WBC RBC Hgb Hct MCV MCH RDW Plt Count Lymph % (Auto) [place] % (Auto) Lymph # (Auto) [place] # (Auto) Seg Neutrophils % Seg Neuts % (Manual) Lymphocytes % (Manual) Monocytes % (Manual) Basophils % (Manual) Seg Neutrophils # Seg Neutrophils # Man Lymphocytes # (Manual) Monocytes # (Manual) Eosinophils # (Manual) Basophils # (Manual) PT INR D-Dimer ABG pH POC ABG pCO2 POC ABG pO2 ABG pO2 ABG HCO3 ABG O2 Saturation ABG Base Excess ABG Hemoglobin ABG Oxyhemoglobin ABG Potassium ABG Glucose Oxyhemoglobin Carboxyhemoglobin Sodium Potassium Chloride Carbon Dioxide BUN Creatinine Glucose POC Glucose 123 H 112 H Calcium Ferritin Total Bilirubin Alkaline Phosphatase Lactate Dehydrogenase Total Creatine Kinase 47 L CK-MB (CK-2) Rel Index 4.6 H Troponin T 0.090 H C-Reactive Protein Total Protein Albumin Prealbumin LDL Cholesterol Direct HDL Cholesterol Arterial Blood Glucose Arterial Blood Ionized Calcium Urine WBC (Auto) 03/28/20 03/29/20 03/29/20 23:22 05:22 10:58 WBC RBC Hgb Hct MCV MCH RDW Plt Count Lymph % (Auto) [place] % (Auto) Lymph # (Auto) [place] # (Auto) Seg Neutrophils % Seg Neuts % (Manual) Lymphocytes % (Manual) Monocytes % (Manual) Basophils % (Manual) Seg Neutrophils # Seg Neutrophils # Man Lymphocytes # (Manual) Monocytes # (Manual) Eosinophils # (Manual) Basophils # (Manual) PT INR D-Dimer ABG pH POC ABG pCO2 POC ABG pO2 ABG pO2 ABG HCO3 ABG O2 Saturation ABG Base Excess ABG Hemoglobin ABG Oxyhemoglobin ABG Potassium ABG Glucose Oxyhemoglobin Carboxyhemoglobin Sodium Potassium Chloride Carbon Dioxide BUN Creatinine Glucose POC Glucose 122 H 116 H 133 H Calcium Ferritin Total Bilirubin Alkaline Phosphatase Lactate Dehydrogenase Total Creatine Kinase CK-MB (CK-2) Rel Index Troponin T C-Reactive Protein Total Protein Albumin Prealbumin LDL Cholesterol Direct HDL Cholesterol Arterial Blood Glucose Arterial Blood Ionized Calcium Urine WBC (Auto) 03/29/20 03/29/20 03/30/20 17:18 23:14 04:57 WBC RBC Hgb Hct MCV MCH RDW Plt Count Lymph % (Auto) [place] % (Auto) Lymph # (Auto) [place] # (Auto) Seg Neutrophils % Seg Neuts % (Manual) Lymphocytes % (Manual) Monocytes % (Manual) Basophils % (Manual) Seg Neutrophils # Seg Neutrophils # Man Lymphocytes # (Manual) Monocytes # (Manual) Eosinophils # (Manual) Basophils # (Manual) PT INR D-Dimer ABG pH POC ABG pCO2 POC ABG pO2 ABG pO2 ABG HCO3 ABG O2 Saturation ABG Base Excess ABG Hemoglobin ABG Oxyhemoglobin ABG Potassium ABG Glucose Oxyhemoglobin Carboxyhemoglobin Sodium Potassium Chloride Carbon Dioxide BUN Creatinine Glucose POC Glucose 111 H 114 H 130 H Calcium Ferritin Total Bilirubin Alkaline Phosphatase Lactate Dehydrogenase Total Creatine Kinase CK-MB (CK-2) Rel Index Troponin T C-Reactive Protein Total Protein Albumin Prealbumin LDL Cholesterol Direct HDL Cholesterol Arterial Blood Glucose Arterial Blood Ionized Calcium Urine WBC (Auto) 03/30/20 03/30/20 03/30/20 11:38 14:47 14:47 WBC 19.9 H RBC Hgb 10.9 L Hct 34.4 L MCV MCH 27 L RDW 16.5 H Plt Count 441 H Lymph % (Auto) 6.4 L [place] % (Auto) Lymph # (Auto) [place] # (Auto) 1.4 H Seg Neutrophils % 86.1 H Seg Neuts % (Manual) Lymphocytes % (Manual) Monocytes % (Manual) Basophils % (Manual) Seg Neutrophils # 17.1 H Seg Neutrophils # Man Lymphocytes # (Manual) Monocytes # (Manual) Eosinophils # (Manual) Basophils # (Manual) PT INR D-Dimer ABG pH POC ABG pCO2 POC ABG pO2 ABG pO2 ABG HCO3 ABG O2 Saturation ABG Base Excess ABG Hemoglobin ABG Oxyhemoglobin ABG Potassium ABG Glucose Oxyhemoglobin Carboxyhemoglobin Sodium 133 L Potassium Chloride 94.6 L Carbon Dioxide 33 H BUN Creatinine < 0.2 L Glucose 194 H POC Glucose 139 H Calcium Ferritin Total Bilirubin Alkaline Phosphatase Lactate Dehydrogenase Total Creatine Kinase CK-MB (CK-2) Rel Index Troponin T C-Reactive Protein Total Protein Albumin 2.8 L Prealbumin LDL Cholesterol Direct HDL Cholesterol Arterial Blood Glucose Arterial Blood Ionized Calcium Urine WBC (Auto) 03/30/20 03/31/20 03/31/20 17:07 05:02 15:21 WBC RBC Hgb Hct MCV MCH RDW Plt Count Lymph % (Auto) [place] % (Auto) Lymph # (Auto) [place] # (Auto) Seg Neutrophils % Seg Neuts % (Manual) Lymphocytes % (Manual) Monocytes % (Manual) Basophils % (Manual) Seg Neutrophils # Seg Neutrophils # Man Lymphocytes # (Manual) Monocytes # (Manual) Eosinophils # (Manual) Basophils # (Manual) PT INR D-Dimer ABG pH POC ABG pCO2 POC ABG pO2 ABG pO2 ABG HCO3 ABG O2 Saturation ABG Base Excess ABG Hemoglobin ABG Oxyhemoglobin ABG Potassium ABG Glucose Oxyhemoglobin Carboxyhemoglobin Sodium Potassium Chloride Carbon Dioxide BUN Creatinine Glucose POC Glucose 163 H 108 H 110 H Calcium Ferritin Total Bilirubin Alkaline Phosphatase Lactate Dehydrogenase Total Creatine Kinase CK-MB (CK-2) Rel Index Troponin T C-Reactive Protein Total Protein Albumin Prealbumin LDL Cholesterol Direct HDL Cholesterol Arterial Blood Glucose Arterial Blood Ionized Calcium Urine WBC (Auto) 03/31/20 03/31/20 04/01/20 17:58 23:19 05:09 WBC RBC Hgb Hct MCV MCH RDW Plt Count Lymph % (Auto) [place] % (Auto) Lymph # (Auto) [place] # (Auto) Seg Neutrophils % Seg Neuts % (Manual) Lymphocytes % (Manual) Monocytes % (Manual) Basophils % (Manual) Seg Neutrophils # Seg Neutrophils # Man Lymphocytes # (Manual) Monocytes # (Manual) Eosinophils # (Manual) Basophils # (Manual) PT INR D-Dimer ABG pH POC ABG pCO2 POC ABG pO2 ABG pO2 ABG HCO3 ABG O2 Saturation ABG Base Excess ABG Hemoglobin ABG Oxyhemoglobin ABG Potassium ABG Glucose Oxyhemoglobin Carboxyhemoglobin Sodium Potassium Chloride Carbon Dioxide BUN Creatinine Glucose POC Glucose 110 H 131 H 124 H Calcium Ferritin Total Bilirubin Alkaline Phosphatase Lactate Dehydrogenase Total Creatine Kinase CK-MB (CK-2) Rel Index Troponin T C-Reactive Protein Total Protein Albumin Prealbumin LDL Cholesterol Direct HDL Cholesterol Arterial Blood Glucose Arterial Blood Ionized Calcium Urine WBC (Auto) 04/01/20 04/01/20 04/01/20 11:50 17:01 23:21 WBC RBC Hgb Hct MCV MCH RDW Plt Count Lymph % (Auto) [place] % (Auto) Lymph # (Auto) [place] # (Auto) Seg Neutrophils % Seg Neuts % (Manual) Lymphocytes % (Manual) Monocytes % (Manual) Basophils % (Manual) Seg Neutrophils # Seg Neutrophils # Man Lymphocytes # (Manual) Monocytes # (Manual) Eosinophils # (Manual) Basophils # (Manual) PT INR D-Dimer ABG pH POC ABG pCO2 POC ABG pO2 ABG pO2 ABG HCO3 ABG O2 Saturation ABG Base Excess ABG Hemoglobin ABG Oxyhemoglobin ABG Potassium ABG Glucose Oxyhemoglobin Carboxyhemoglobin Sodium Potassium Chloride Carbon Dioxide BUN Creatinine Glucose POC Glucose 136 H 115 H 124 H Calcium Ferritin Total Bilirubin Alkaline Phosphatase Lactate Dehydrogenase Total Creatine Kinase CK-MB (CK-2) Rel Index Troponin T C-Reactive Protein Total Protein Albumin Prealbumin LDL Cholesterol Direct HDL Cholesterol Arterial Blood Glucose Arterial Blood Ionized Calcium Urine WBC (Auto) 04/02/20 04/02/20 04/02/20 05:27 11:58 17:58 WBC RBC Hgb Hct MCV MCH RDW Plt Count Lymph % (Auto) [place] % (Auto) Lymph # (Auto) [place] # (Auto) Seg Neutrophils % Seg Neuts % (Manual) Lymphocytes % (Manual) Monocytes % (Manual) Basophils % (Manual) Seg Neutrophils # Seg Neutrophils # Man Lymphocytes # (Manual) Monocytes # (Manual) Eosinophils # (Manual) Basophils # (Manual) PT INR D-Dimer ABG pH POC ABG pCO2 POC ABG pO2 ABG pO2 ABG HCO3 ABG O2 Saturation ABG Base Excess ABG Hemoglobin ABG Oxyhemoglobin ABG Potassium ABG Glucose Oxyhemoglobin Carboxyhemoglobin Sodium Potassium Chloride Carbon Dioxide BUN Creatinine Glucose POC Glucose 117 H 133 H 122 H Calcium Ferritin Total Bilirubin Alkaline Phosphatase Lactate Dehydrogenase Total Creatine Kinase CK-MB (CK-2) Rel Index Troponin T C-Reactive Protein Total Protein Albumin Prealbumin LDL Cholesterol Direct HDL Cholesterol Arterial Blood Glucose Arterial Blood Ionized Calcium Urine WBC (Auto) 04/02/20 04/03/20 04/03/20 23:12 05:11 11:11 WBC RBC Hgb Hct MCV MCH RDW Plt Count Lymph % (Auto) [place] % (Auto) Lymph # (Auto) [place] # (Auto) Seg Neutrophils % Seg Neuts % (Manual) Lymphocytes % (Manual) Monocytes % (Manual) Basophils % (Manual) Seg Neutrophils # Seg Neutrophils # Man Lymphocytes # (Manual) Monocytes # (Manual) Eosinophils # (Manual) Basophils # (Manual) PT INR D-Dimer ABG pH POC ABG pCO2 POC ABG pO2 ABG pO2 ABG HCO3 ABG O2 Saturation ABG Base Excess ABG Hemoglobin ABG Oxyhemoglobin ABG Potassium ABG Glucose Oxyhemoglobin Carboxyhemoglobin Sodium Potassium Chloride Carbon Dioxide BUN Creatinine Glucose POC Glucose 130 H 139 H 136 H Calcium Ferritin Total Bilirubin Alkaline Phosphatase Lactate Dehydrogenase Total Creatine Kinase CK-MB (CK-2) Rel Index Troponin T C-Reactive Protein Total Protein Albumin Prealbumin LDL Cholesterol Direct HDL Cholesterol Arterial Blood Glucose Arterial Blood Ionized Calcium Urine WBC (Auto) 04/03/20 04/03/20 04/04/20 16:51 23:25 05:29 WBC RBC Hgb Hct MCV MCH RDW Plt Count Lymph % (Auto) [place] % (Auto) Lymph # (Auto) [place] # (Auto) Seg Neutrophils % Seg Neuts % (Manual) Lymphocytes % (Manual) Monocytes % (Manual) Basophils % (Manual) Seg Neutrophils # Seg Neutrophils # Man Lymphocytes # (Manual) Monocytes # (Manual) Eosinophils # (Manual) Basophils # (Manual) PT INR D-Dimer ABG pH POC ABG pCO2 POC ABG pO2 ABG pO2 ABG HCO3 ABG O2 Saturation ABG Base Excess ABG Hemoglobin ABG Oxyhemoglobin ABG Potassium ABG Glucose Oxyhemoglobin Carboxyhemoglobin Sodium Potassium Chloride Carbon Dioxide BUN Creatinine Glucose POC Glucose 118 H 111 H 126 H Calcium Ferritin Total Bilirubin Alkaline Phosphatase Lactate Dehydrogenase Total Creatine Kinase CK-MB (CK-2) Rel Index Troponin T C-Reactive Protein Total Protein Albumin Prealbumin LDL Cholesterol Direct HDL Cholesterol Arterial Blood Glucose Arterial Blood Ionized Calcium Urine WBC (Auto) 04/04/20 04/04/20 04/04/20 11:47 17:41 23:05 WBC RBC Hgb Hct MCV MCH RDW Plt Count Lymph % (Auto) Mills % (Auto) Lymph # (Auto) [place] # (Auto) Seg Neutrophils % Seg Neuts % (Manual) Lymphocytes % (Manual) Monocytes % (Manual) Basophils % (Manual) Seg Neutrophils # Seg Neutrophils # Man Lymphocytes # (Manual) Monocytes # (Manual) Eosinophils # (Manual) Basophils # (Manual) PT INR D-Dimer ABG pH POC ABG pCO2 POC ABG pO2 ABG pO2 ABG HCO3 ABG O2 Saturation ABG Base Excess ABG Hemoglobin ABG Oxyhemoglobin ABG Potassium ABG Glucose Oxyhemoglobin Carboxyhemoglobin Sodium Potassium Chloride Carbon Dioxide BUN Creatinine Glucose POC Glucose 123 H 120 H 119 H Calcium Ferritin Total Bilirubin Alkaline Phosphatase Lactate Dehydrogenase Total Creatine Kinase CK-MB (CK-2) Rel Index Troponin T C-Reactive Protein Total Protein Albumin Prealbumin LDL Cholesterol Direct HDL Cholesterol Arterial Blood Glucose Arterial Blood Ionized Calcium Urine WBC (Auto) 04/05/20 04/05/20 04/05/20 05:14 12:16 18:48 WBC RBC Hgb Hct MCV MCH RDW Plt Count Lymph % (Auto) Mills % (Auto) Lymph # (Auto) [place] # (Auto) Seg Neutrophils % Seg Neuts % (Manual) Lymphocytes % (Manual) Monocytes % (Manual) Basophils % (Manual) Seg Neutrophils # Seg Neutrophils # Man Lymphocytes # (Manual) Monocytes # (Manual) Eosinophils # (Manual) Basophils # (Manual) PT INR D-Dimer ABG pH POC ABG pCO2 POC ABG pO2 ABG pO2 ABG HCO3 ABG O2 Saturation ABG Base Excess ABG Hemoglobin ABG Oxyhemoglobin ABG Potassium ABG Glucose Oxyhemoglobin Carboxyhemoglobin Sodium Potassium Chloride Carbon Dioxide BUN Creatinine Glucose POC Glucose 123 H 148 H 106 H Calcium Ferritin Total Bilirubin Alkaline Phosphatase Lactate Dehydrogenase Total Creatine Kinase CK-MB (CK-2) Rel Index Troponin T C-Reactive Protein Total Protein Albumin Prealbumin LDL Cholesterol Direct HDL Cholesterol Arterial Blood Glucose Arterial Blood Ionized Calcium Urine WBC (Auto) 04/06/20 04/06/20 04/06/20 00:47 03:26 08:24 WBC RBC Hgb Hct MCV MCH RDW Plt Count Lymph % (Auto) Mills % (Auto) Lymph # (Auto) [place] # (Auto) Seg Neutrophils % Seg Neuts % (Manual) Lymphocytes % (Manual) Monocytes % (Manual) Basophils % (Manual) Seg Neutrophils # Seg Neutrophils # Man Lymphocytes # (Manual) Monocytes # (Manual) Eosinophils # (Manual) Basophils # (Manual) PT INR D-Dimer ABG pH POC ABG pCO2 POC ABG pO2 ABG pO2 ABG HCO3 ABG O2 Saturation ABG Base Excess ABG Hemoglobin ABG Oxyhemoglobin ABG Potassium ABG Glucose Oxyhemoglobin Carboxyhemoglobin Sodium Potassium Chloride Carbon Dioxide BUN Creatinine Glucose POC Glucose 129 H 134 H 131 H Calcium Ferritin Total Bilirubin Alkaline Phosphatase Lactate Dehydrogenase Total Creatine Kinase CK-MB (CK-2) Rel Index Troponin T C-Reactive Protein Total Protein Albumin Prealbumin LDL Cholesterol Direct HDL Cholesterol Arterial Blood Glucose Arterial Blood Ionized Calcium Urine WBC (Auto) 04/06/20 04/06/20 04/06/20 11:16 16:27 23:01 WBC RBC Hgb Hct MCV MCH RDW Plt Count Lymph % (Auto) [place] % (Auto) Lymph # (Auto) [place] # (Auto) Seg Neutrophils % Seg Neuts % (Manual) Lymphocytes % (Manual) Monocytes % (Manual) Basophils % (Manual) Seg Neutrophils # Seg Neutrophils # Man Lymphocytes # (Manual) Monocytes # (Manual) Eosinophils # (Manual) Basophils # (Manual) PT INR D-Dimer ABG pH POC ABG pCO2 POC ABG pO2 ABG pO2 ABG HCO3 ABG O2 Saturation ABG Base Excess ABG Hemoglobin ABG Oxyhemoglobin ABG Potassium ABG Glucose Oxyhemoglobin Carboxyhemoglobin Sodium Potassium Chloride Carbon Dioxide BUN Creatinine Glucose POC Glucose 131 H 107 H 125 H Calcium Ferritin Total Bilirubin Alkaline Phosphatase Lactate Dehydrogenase Total Creatine Kinase CK-MB (CK-2) Rel Index Troponin T C-Reactive Protein Total Protein Albumin Prealbumin LDL Cholesterol Direct HDL Cholesterol Arterial Blood Glucose Arterial Blood Ionized Calcium Urine WBC (Auto) 04/07/20 04/07/20 04/07/20 05:24 12:41 17:40 WBC RBC Hgb Hct MCV MCH RDW Plt Count Lymph % (Auto) [place] % (Auto) Lymph # (Auto) [place] # (Auto) Seg Neutrophils % Seg Neuts % (Manual) Lymphocytes % (Manual) Monocytes % (Manual) Basophils % (Manual) Seg Neutrophils # Seg Neutrophils # Man Lymphocytes # (Manual) Monocytes # (Manual) Eosinophils # (Manual) Basophils # (Manual) PT INR D-Dimer ABG pH POC ABG pCO2 POC ABG pO2 ABG pO2 ABG HCO3 ABG O2 Saturation ABG Base Excess ABG Hemoglobin ABG Oxyhemoglobin ABG Potassium ABG Glucose Oxyhemoglobin Carboxyhemoglobin Sodium Potassium Chloride Carbon Dioxide BUN Creatinine Glucose POC Glucose 125 H 145 H 123 H Calcium Ferritin Total Bilirubin Alkaline Phosphatase Lactate Dehydrogenase Total Creatine Kinase CK-MB (CK-2) Rel Index Troponin T C-Reactive Protein Total Protein Albumin Prealbumin LDL Cholesterol Direct HDL Cholesterol Arterial Blood Glucose Arterial Blood Ionized Calcium Urine WBC (Auto) 04/07/20 04/08/20 04/08/20 23:22 05:40 11:29 WBC RBC Hgb Hct MCV MCH RDW Plt Count Lymph % (Auto) [place] % (Auto) Lymph # (Auto) [place] # (Auto) Seg Neutrophils % Seg Neuts % (Manual) Lymphocytes % (Manual) Monocytes % (Manual) Basophils % (Manual) Seg Neutrophils # Seg Neutrophils # Man Lymphocytes # (Manual) Monocytes # (Manual) Eosinophils # (Manual) Basophils # (Manual) PT INR D-Dimer ABG pH POC ABG pCO2 POC ABG pO2 ABG pO2 ABG HCO3 ABG O2 Saturation ABG Base Excess ABG Hemoglobin ABG Oxyhemoglobin ABG Potassium ABG Glucose Oxyhemoglobin Carboxyhemoglobin Sodium Potassium Chloride Carbon Dioxide BUN Creatinine Glucose POC Glucose 133 H 125 H 116 H Calcium Ferritin Total Bilirubin Alkaline Phosphatase Lactate Dehydrogenase Total Creatine Kinase CK-MB (CK-2) Rel Index Troponin T C-Reactive Protein Total Protein Albumin Prealbumin LDL Cholesterol Direct HDL Cholesterol Arterial Blood Glucose Arterial Blood Ionized Calcium Urine WBC (Auto) 04/08/20 04/09/20 04/09/20 17:43 05:47 12:22 WBC RBC Hgb Hct MCV MCH RDW Plt Count Lymph % (Auto) [place] % (Auto) Lymph # (Auto) [place] # (Auto) Seg Neutrophils % Seg Neuts % (Manual) Lymphocytes % (Manual) Monocytes % (Manual) Basophils % (Manual) Seg Neutrophils # Seg Neutrophils # Man Lymphocytes # (Manual) Monocytes # (Manual) Eosinophils # (Manual) Basophils # (Manual) PT INR D-Dimer ABG pH POC ABG pCO2 POC ABG pO2 ABG pO2 ABG HCO3 ABG O2 Saturation ABG Base Excess ABG Hemoglobin ABG Oxyhemoglobin ABG Potassium ABG Glucose Oxyhemoglobin Carboxyhemoglobin Sodium Potassium Chloride Carbon Dioxide BUN Creatinine Glucose POC Glucose 123 H 108 H 116 H Calcium Ferritin Total Bilirubin Alkaline Phosphatase Lactate Dehydrogenase Total Creatine Kinase CK-MB (CK-2) Rel Index Troponin T C-Reactive Protein Total Protein Albumin Prealbumin LDL Cholesterol Direct HDL Cholesterol Arterial Blood Glucose Arterial Blood Ionized Calcium Urine WBC (Auto) 04/09/20 04/09/20 04/10/20 17:24 23:52 06:10 WBC RBC Hgb Hct MCV MCH RDW Plt Count Lymph % (Auto) [place] % (Auto) Lymph # (Auto) [place] # (Auto) Seg Neutrophils % Seg Neuts % (Manual) Lymphocytes % (Manual) Monocytes % (Manual) Basophils % (Manual) Seg Neutrophils # Seg Neutrophils # Man Lymphocytes # (Manual) Monocytes # (Manual) Eosinophils # (Manual) Basophils # (Manual) PT INR D-Dimer ABG pH POC ABG pCO2 POC ABG pO2 ABG pO2 ABG HCO3 ABG O2 Saturation ABG Base Excess ABG Hemoglobin ABG Oxyhemoglobin ABG Potassium ABG Glucose Oxyhemoglobin Carboxyhemoglobin Sodium Potassium Chloride Carbon Dioxide BUN Creatinine Glucose POC Glucose 108 H 126 H 122 H Calcium Ferritin Total Bilirubin Alkaline Phosphatase Lactate Dehydrogenase Total Creatine Kinase CK-MB (CK-2) Rel Index Troponin T C-Reactive Protein Total Protein Albumin Prealbumin LDL Cholesterol Direct HDL Cholesterol Arterial Blood Glucose Arterial Blood Ionized Calcium Urine WBC (Auto) 04/10/20 04/10/20 04/10/20 11:27 18:11 23:24 WBC RBC Hgb Hct MCV MCH RDW Plt Count Lymph % (Auto) [place] % (Auto) Lymph # (Auto) [place] # (Auto) Seg Neutrophils % Seg Neuts % (Manual) Lymphocytes % (Manual) Monocytes % (Manual) Basophils % (Manual) Seg Neutrophils # Seg Neutrophils # Man Lymphocytes # (Manual) Monocytes # (Manual) Eosinophils # (Manual) Basophils # (Manual) PT INR D-Dimer ABG pH POC ABG pCO2 POC ABG pO2 ABG pO2 ABG HCO3 ABG O2 Saturation ABG Base Excess ABG Hemoglobin ABG Oxyhemoglobin ABG Potassium ABG Glucose Oxyhemoglobin Carboxyhemoglobin Sodium Potassium Chloride Carbon Dioxide BUN Creatinine Glucose POC Glucose 129 H 125 H 107 H Calcium Ferritin Total Bilirubin Alkaline Phosphatase Lactate Dehydrogenase Total Creatine Kinase CK-MB (CK-2) Rel Index Troponin T C-Reactive Protein Total Protein Albumin Prealbumin LDL Cholesterol Direct HDL Cholesterol Arterial Blood Glucose Arterial Blood Ionized Calcium Urine WBC (Auto) 04/11/20 04/11/20 04/11/20 05:28 11:46 23:49 WBC RBC Hgb Hct MCV MCH RDW Plt Count Lymph % (Auto) [place] % (Auto) Lymph # (Auto) [place] # (Auto) Seg Neutrophils % Seg Neuts % (Manual) Lymphocytes % (Manual) Monocytes % (Manual) Basophils % (Manual) Seg Neutrophils # Seg Neutrophils # Man Lymphocytes # (Manual) Monocytes # (Manual) Eosinophils # (Manual) Basophils # (Manual) PT INR D-Dimer ABG pH POC ABG pCO2 POC ABG pO2 ABG pO2 ABG HCO3 ABG O2 Saturation ABG Base Excess ABG Hemoglobin ABG Oxyhemoglobin ABG Potassium ABG Glucose Oxyhemoglobin Carboxyhemoglobin Sodium Potassium Chloride Carbon Dioxide BUN Creatinine Glucose POC Glucose 122 H 122 H 116 H Calcium Ferritin Total Bilirubin Alkaline Phosphatase Lactate Dehydrogenase Total Creatine Kinase CK-MB (CK-2) Rel Index Troponin T C-Reactive Protein Total Protein Albumin Prealbumin LDL Cholesterol Direct HDL Cholesterol Arterial Blood Glucose Arterial Blood Ionized Calcium Urine WBC (Auto) 04/12/20 04/12/20 04/12/20 09:07 09:07 11:39 WBC 13.1 H RBC 3.59 L Hgb 9.5 L Hct 29.8 L MCV 83 L MCH 26 L RDW 16.6 H Plt Count 591 H Lymph % (Auto) [place] % (Auto) Lymph # (Auto) [place] # (Auto) Seg Neutrophils % Seg Neuts % (Manual) 86.0 H Lymphocytes % (Manual) 7.0 L Monocytes % (Manual) Basophils % (Manual) Seg Neutrophils # Seg Neutrophils # Man 11.3 H Lymphocytes # (Manual) 0.9 L Monocytes # (Manual) Eosinophils # (Manual) Basophils # (Manual) PT INR D-Dimer ABG pH POC ABG pCO2 POC ABG pO2 ABG pO2 ABG HCO3 ABG O2 Saturation ABG Base Excess ABG Hemoglobin ABG Oxyhemoglobin ABG Potassium ABG Glucose Oxyhemoglobin Carboxyhemoglobin Sodium Potassium Chloride Carbon Dioxide 36 H BUN Creatinine < 0.2 L Glucose 132 H POC Glucose 136 H Calcium Ferritin Total Bilirubin Alkaline Phosphatase Lactate Dehydrogenase Total Creatine Kinase CK-MB (CK-2) Rel Index Troponin T C-Reactive Protein Total Protein Albumin 2.7 L Prealbumin LDL Cholesterol Direct HDL Cholesterol Arterial Blood Glucose Arterial Blood Ionized Calcium Urine WBC (Auto) 04/12/20 04/12/20 04/13/20 18:13 23:07 05:45 WBC RBC Hgb Hct MCV MCH RDW Plt Count Lymph % (Auto) [place] % (Auto) Lymph # (Auto) [place] # (Auto) Seg Neutrophils % Seg Neuts % (Manual) Lymphocytes % (Manual) Monocytes % (Manual) Basophils % (Manual) Seg Neutrophils # Seg Neutrophils # Man Lymphocytes # (Manual) Monocytes # (Manual) Eosinophils # (Manual) Basophils # (Manual) PT INR D-Dimer ABG pH POC ABG pCO2 POC ABG pO2 ABG pO2 ABG HCO3 ABG O2 Saturation ABG Base Excess ABG Hemoglobin ABG Oxyhemoglobin ABG Potassium ABG Glucose Oxyhemoglobin Carboxyhemoglobin Sodium Potassium Chloride Carbon Dioxide BUN Creatinine Glucose POC Glucose 107 H 106 H 125 H Calcium Ferritin Total Bilirubin Alkaline Phosphatase Lactate Dehydrogenase Total Creatine Kinase CK-MB (CK-2) Rel Index Troponin T C-Reactive Protein Total Protein Albumin Prealbumin LDL Cholesterol Direct HDL Cholesterol Arterial Blood Glucose Arterial Blood Ionized Calcium Urine WBC (Auto) 04/13/20 04/13/20 04/13/20 11:18 17:56 23:33 WBC RBC Hgb Hct MCV MCH RDW Plt Count Lymph % (Auto) [place] % (Auto) Lymph # (Auto) [place] # (Auto) Seg Neutrophils % Seg Neuts % (Manual) Lymphocytes % (Manual) Monocytes % (Manual) Basophils % (Manual) Seg Neutrophils # Seg Neutrophils # Man Lymphocytes # (Manual) Monocytes # (Manual) Eosinophils # (Manual) Basophils # (Manual) PT INR D-Dimer ABG pH POC ABG pCO2 POC ABG pO2 ABG pO2 ABG HCO3 ABG O2 Saturation ABG Base Excess ABG Hemoglobin ABG Oxyhemoglobin ABG Potassium ABG Glucose Oxyhemoglobin Carboxyhemoglobin Sodium Potassium Chloride Carbon Dioxide BUN Creatinine Glucose POC Glucose 133 H 110 H 114 H Calcium Ferritin Total Bilirubin Alkaline Phosphatase Lactate Dehydrogenase Total Creatine Kinase CK-MB (CK-2) Rel Index Troponin T C-Reactive Protein Total Protein Albumin Prealbumin LDL Cholesterol Direct HDL Cholesterol Arterial Blood Glucose Arterial Blood Ionized Calcium Urine WBC (Auto) 04/14/20 04/14/20 04/14/20 05:58 11:45 17:48 WBC RBC Hgb Hct MCV MCH RDW Plt Count Lymph % (Auto) [place] % (Auto) Lymph # (Auto) [place] # (Auto) Seg Neutrophils % Seg Neuts % (Manual) Lymphocytes % (Manual) Monocytes % (Manual) Basophils % (Manual) Seg Neutrophils # Seg Neutrophils # Man Lymphocytes # (Manual) Monocytes # (Manual) Eosinophils # (Manual) Basophils # (Manual) PT INR D-Dimer ABG pH POC ABG pCO2 POC ABG pO2 ABG pO2 ABG HCO3 ABG O2 Saturation ABG Base Excess ABG Hemoglobin ABG Oxyhemoglobin ABG Potassium ABG Glucose Oxyhemoglobin Carboxyhemoglobin Sodium Potassium Chloride Carbon Dioxide BUN Creatinine Glucose POC Glucose 115 H 122 H 124 H Calcium Ferritin Total Bilirubin Alkaline Phosphatase Lactate Dehydrogenase Total Creatine Kinase CK-MB (CK-2) Rel Index Troponin T C-Reactive Protein Total Protein Albumin Prealbumin LDL Cholesterol Direct HDL Cholesterol Arterial Blood Glucose Arterial Blood Ionized Calcium Urine WBC (Auto) 04/15/20 04/15/20 04/15/20 00:11 05:38 11:31 WBC RBC Hgb Hct MCV MCH RDW Plt Count Lymph % (Auto) [place] % (Auto) Lymph # (Auto) [place] # (Auto) Seg Neutrophils % Seg Neuts % (Manual) Lymphocytes % (Manual) Monocytes % (Manual) Basophils % (Manual) Seg Neutrophils # Seg Neutrophils # Man Lymphocytes # (Manual) Monocytes # (Manual) Eosinophils # (Manual) Basophils # (Manual) PT INR D-Dimer ABG pH POC ABG pCO2 POC ABG pO2 ABG pO2 ABG HCO3 ABG O2 Saturation ABG Base Excess ABG Hemoglobin ABG Oxyhemoglobin ABG Potassium ABG Glucose Oxyhemoglobin Carboxyhemoglobin Sodium Potassium Chloride Carbon Dioxide BUN Creatinine Glucose POC Glucose 120 H 109 H 123 H Calcium Ferritin Total Bilirubin Alkaline Phosphatase Lactate Dehydrogenase Total Creatine Kinase CK-MB (CK-2) Rel Index Troponin T C-Reactive Protein Total Protein Albumin Prealbumin LDL Cholesterol Direct HDL Cholesterol Arterial Blood Glucose Arterial Blood Ionized Calcium Urine WBC (Auto) 04/15/20 04/16/20 04/16/20 17:35 06:00 11:29 WBC RBC Hgb Hct MCV MCH RDW Plt Count Lymph % (Auto) [place] % (Auto) Lymph # (Auto) [place] # (Auto) Seg Neutrophils % Seg Neuts % (Manual) Lymphocytes % (Manual) Monocytes % (Manual) Basophils % (Manual) Seg Neutrophils # Seg Neutrophils # Man Lymphocytes # (Manual) Monocytes # (Manual) Eosinophils # (Manual) Basophils # (Manual) PT INR D-Dimer ABG pH POC ABG pCO2 POC ABG pO2 ABG pO2 ABG HCO3 ABG O2 Saturation ABG Base Excess ABG Hemoglobin ABG Oxyhemoglobin ABG Potassium ABG Glucose Oxyhemoglobin Carboxyhemoglobin Sodium Potassium Chloride Carbon Dioxide BUN Creatinine Glucose POC Glucose 111 H 142 H 108 H Calcium Ferritin Total Bilirubin Alkaline Phosphatase Lactate Dehydrogenase Total Creatine Kinase CK-MB (CK-2) Rel Index Troponin T C-Reactive Protein Total Protein Albumin Prealbumin LDL Cholesterol Direct HDL Cholesterol Arterial Blood Glucose Arterial Blood Ionized Calcium Urine WBC (Auto) 04/17/20 04/17/20 04/17/20 05:09 06:53 06:53 WBC 14.2 H RBC Hgb 10.1 L Hct 31.5 L MCV MCH 27 L RDW 17.2 H Plt Count 643 H Lymph % (Auto) [place] % (Auto) Lymph # (Auto) [place] # (Auto) Seg Neutrophils % Seg Neuts % (Manual) Lymphocytes % (Manual) Monocytes % (Manual) Basophils % (Manual) Seg Neutrophils # Seg Neutrophils # Man Lymphocytes # (Manual) Monocytes # (Manual) Eosinophils # (Manual) Basophils # (Manual) PT INR D-Dimer ABG pH POC ABG pCO2 POC ABG pO2 ABG pO2 ABG HCO3 ABG O2 Saturation ABG Base Excess ABG Hemoglobin ABG Oxyhemoglobin ABG Potassium ABG Glucose Oxyhemoglobin Carboxyhemoglobin Sodium Potassium Chloride 97.7 L Carbon Dioxide 38 H BUN Creatinine < 0.2 L Glucose 126 H POC Glucose 131 H Calcium Ferritin Total Bilirubin Alkaline Phosphatase Lactate Dehydrogenase Total Creatine Kinase CK-MB (CK-2) Rel Index Troponin T C-Reactive Protein Total Protein Albumin Prealbumin LDL Cholesterol Direct HDL Cholesterol Arterial Blood Glucose Arterial Blood Ionized Calcium Urine WBC (Auto) 04/17/20 04/18/20 04/18/20 11:21 00:23 04:01 WBC 15.3 H RBC Hgb 10.1 L Hct 31.9 L MCV 82 L MCH 26 L RDW 17.2 H Plt Count 665 H Lymph % (Auto) 12.9 L [place] % (Auto) Lymph # (Auto) [place] # (Auto) 1.1 H Seg Neutrophils % 78.0 H Seg Neuts % (Manual) Lymphocytes % (Manual) Monocytes % (Manual) Basophils % (Manual) Seg Neutrophils # 11.9 H Seg Neutrophils # Man Lymphocytes # (Manual) Monocytes # (Manual) Eosinophils # (Manual) Basophils # (Manual) PT INR D-Dimer ABG pH POC ABG pCO2 POC ABG pO2 ABG pO2 ABG HCO3 ABG O2 Saturation ABG Base Excess ABG Hemoglobin ABG Oxyhemoglobin ABG Potassium ABG Glucose Oxyhemoglobin Carboxyhemoglobin Sodium Potassium Chloride Carbon Dioxide BUN Creatinine Glucose POC Glucose 140 H 125 H Calcium Ferritin Total Bilirubin Alkaline Phosphatase Lactate Dehydrogenase Total Creatine Kinase CK-MB (CK-2) Rel Index Troponin T C-Reactive Protein Total Protein Albumin Prealbumin LDL Cholesterol Direct HDL Cholesterol Arterial Blood Glucose Arterial Blood Ionized Calcium Urine WBC (Auto) 04/18/20 04/18/20 04/18/20 04:01 11:29 17:30 WBC RBC Hgb Hct MCV MCH RDW Plt Count Lymph % (Auto) [place] % (Auto) Lymph # (Auto) [place] # (Auto) Seg Neutrophils % Seg Neuts % (Manual) Lymphocytes % (Manual) Monocytes % (Manual) Basophils % (Manual) Seg Neutrophils # Seg Neutrophils # Man Lymphocytes # (Manual) Monocytes # (Manual) Eosinophils # (Manual) Basophils # (Manual) PT INR D-Dimer ABG pH POC ABG pCO2 POC ABG pO2 ABG pO2 ABG HCO3 ABG O2 Saturation ABG Base Excess ABG Hemoglobin ABG Oxyhemoglobin ABG Potassium ABG Glucose Oxyhemoglobin Carboxyhemoglobin Sodium Potassium Chloride 97.0 L Carbon Dioxide 38 H BUN Creatinine < 0.2 L Glucose 117 H POC Glucose 136 H 107 H Calcium Ferritin Total Bilirubin Alkaline Phosphatase Lactate Dehydrogenase Total Creatine Kinase CK-MB (CK-2) Rel Index Troponin T C-Reactive Protein Total Protein Albumin Prealbumin LDL Cholesterol Direct HDL Cholesterol Arterial Blood Glucose Arterial Blood Ionized Calcium Urine WBC (Auto) 04/18/20 04/19/20 04/19/20 23:19 06:51 06:51 WBC 12.2 H RBC Hgb 9.8 L Hct 31.1 L MCV 82 L MCH 26 L RDW 17.2 H Plt Count 549 H Lymph % (Auto) 6.5 L [place] % (Auto) Lymph # (Auto) 0.8 L [place] # (Auto) Seg Neutrophils % 86.7 H Seg Neuts % (Manual) Lymphocytes % (Manual) Monocytes % (Manual) Basophils % (Manual) Seg Neutrophils # 10.6 H Seg Neutrophils # Man Lymphocytes # (Manual) Monocytes # (Manual) Eosinophils # (Manual) Basophils # (Manual) PT INR D-Dimer ABG pH POC ABG pCO2 POC ABG pO2 ABG pO2 ABG HCO3 ABG O2 Saturation ABG Base Excess ABG Hemoglobin ABG Oxyhemoglobin ABG Potassium ABG Glucose Oxyhemoglobin Carboxyhemoglobin Sodium Potassium Chloride 97.8 L Carbon Dioxide 38 H BUN Creatinine < 0.2 L Glucose 123 H POC Glucose 127 H Calcium Ferritin Total Bilirubin Alkaline Phosphatase Lactate Dehydrogenase Total Creatine Kinase CK-MB (CK-2) Rel Index Troponin T C-Reactive Protein Total Protein Albumin Prealbumin LDL Cholesterol Direct HDL Cholesterol Arterial Blood Glucose Arterial Blood Ionized Calcium Urine WBC (Auto) 04/19/20 04/19/20 04/20/20 13:41 18:33 05:56 WBC RBC Hgb Hct MCV MCH RDW Plt Count Lymph % (Auto) [place] % (Auto) Lymph # (Auto) [place] # (Auto) Seg Neutrophils % Seg Neuts % (Manual) Lymphocytes % (Manual) Monocytes % (Manual) Basophils % (Manual) Seg Neutrophils # Seg Neutrophils # Man Lymphocytes # (Manual) Monocytes # (Manual) Eosinophils # (Manual) Basophils # (Manual) PT INR D-Dimer ABG pH POC ABG pCO2 POC ABG pO2 ABG pO2 ABG HCO3 ABG O2 Saturation ABG Base Excess ABG Hemoglobin ABG Oxyhemoglobin ABG Potassium ABG Glucose Oxyhemoglobin Carboxyhemoglobin Sodium Potassium Chloride Carbon Dioxide BUN Creatinine Glucose POC Glucose 116 H 124 H 130 H Calcium Ferritin Total Bilirubin Alkaline Phosphatase Lactate Dehydrogenase Total Creatine Kinase CK-MB (CK-2) Rel Index Troponin T C-Reactive Protein Total Protein Albumin Prealbumin LDL Cholesterol Direct HDL Cholesterol Arterial Blood Glucose Arterial Blood Ionized Calcium Urine WBC (Auto) 04/20/20 04/20/20 04/20/20 06:28 06:28 11:46 WBC RBC Hgb 10.2 L Hct 31.5 L MCV 82 L MCH 27 L RDW 17.1 H Plt Count 546 H Lymph % (Auto) 10.0 L [place] % (Auto) 9.8 H Lymph # (Auto) 1.1 L [place] # (Auto) 1.1 H Seg Neutrophils % 78.4 H Seg Neuts % (Manual) Lymphocytes % (Manual) Monocytes % (Manual) Basophils % (Manual) Seg Neutrophils # 8.5 H Seg Neutrophils # Man Lymphocytes # (Manual) Monocytes # (Manual) Eosinophils # (Manual) Basophils # (Manual) PT INR D-Dimer ABG pH POC ABG pCO2 POC ABG pO2 ABG pO2 ABG HCO3 ABG O2 Saturation ABG Base Excess ABG Hemoglobin ABG Oxyhemoglobin ABG Potassium ABG Glucose Oxyhemoglobin Carboxyhemoglobin Sodium Potassium Chloride 97.0 L Carbon Dioxide 38 H BUN Creatinine < 0.2 L Glucose 138 H POC Glucose 130 H Calcium Ferritin Total Bilirubin Alkaline Phosphatase Lactate Dehydrogenase Total Creatine Kinase CK-MB (CK-2) Rel Index Troponin T C-Reactive Protein Total Protein Albumin Prealbumin LDL Cholesterol Direct HDL Cholesterol Arterial Blood Glucose Arterial Blood Ionized Calcium Urine WBC (Auto) 04/20/20 04/21/20 04/21/20 23:31 05:55 05:55 WBC RBC Hgb 10.0 L Hct 31.1 L MCV 82 L MCH 26 L RDW 17.0 H Plt Count 535 H Lymph % (Auto) [place] % (Auto) 9.2 H Lymph # (Auto) 1.1 L [place] # (Auto) Seg Neutrophils % 75.4 H Seg Neuts % (Manual) Lymphocytes % (Manual) Monocytes % (Manual) Basophils % (Manual) Seg Neutrophils # Seg Neutrophils # Man Lymphocytes # (Manual) Monocytes # (Manual) Eosinophils # (Manual) Basophils # (Manual) PT INR D-Dimer ABG pH POC ABG pCO2 POC ABG pO2 ABG pO2 ABG HCO3 ABG O2 Saturation ABG Base Excess ABG Hemoglobin ABG Oxyhemoglobin ABG Potassium ABG Glucose Oxyhemoglobin Carboxyhemoglobin Sodium Potassium Chloride 95.0 L Carbon Dioxide 34 H BUN Creatinine < 0.2 L Glucose 125 H POC Glucose 116 H Calcium Ferritin Total Bilirubin Alkaline Phosphatase Lactate Dehydrogenase Total Creatine Kinase CK-MB (CK-2) Rel Index Troponin T C-Reactive Protein Total Protein Albumin Prealbumin LDL Cholesterol Direct HDL Cholesterol Arterial Blood Glucose Arterial Blood Ionized Calcium Urine WBC (Auto) 04/22/20 04/22/20 04/22/20 00:01 07:45 07:45 WBC RBC Hgb 10.0 L Hct 30.7 L MCV 81 L MCH 27 L RDW 17.1 H Plt Count 490 H Lymph % (Auto) [place] % (Auto) Lymph # (Auto) [place] # (Auto) Seg Neutrophils % Seg Neuts % (Manual) 75.0 H Lymphocytes % (Manual) 11.0 L Monocytes % (Manual) 9.0 H Basophils % (Manual) Seg Neutrophils # Seg Neutrophils # Man Lymphocytes # (Manual) 0.8 L Monocytes # (Manual) Eosinophils # (Manual) Basophils # (Manual) PT INR D-Dimer ABG pH POC ABG pCO2 POC ABG pO2 ABG pO2 ABG HCO3 ABG O2 Saturation ABG Base Excess ABG Hemoglobin ABG Oxyhemoglobin ABG Potassium ABG Glucose Oxyhemoglobin Carboxyhemoglobin Sodium Potassium Chloride 96.3 L Carbon Dioxide 40 H BUN Creatinine < 0.2 L Glucose 109 H POC Glucose 110 H Calcium Ferritin Total Bilirubin Alkaline Phosphatase Lactate Dehydrogenase Total Creatine Kinase CK-MB (CK-2) Rel Index Troponin T C-Reactive Protein Total Protein Albumin Prealbumin LDL Cholesterol Direct HDL Cholesterol Arterial Blood Glucose Arterial Blood Ionized Calcium Urine WBC (Auto) 04/23/20 04/23/20 04/23/20 04:28 04:28 04:28 WBC RBC 3.64 L Hgb 9.7 L Hct 29.4 L MCV 81 L MCH 27 L RDW 17.2 H Plt Count 527 H Lymph % (Auto) [place] % (Auto) 8.9 H Lymph # (Auto) [place] # (Auto) Seg Neutrophils % Seg Neuts % (Manual) Lymphocytes % (Manual) Monocytes % (Manual) Basophils % (Manual) Seg Neutrophils # Seg Neutrophils # Man Lymphocytes # (Manual) Monocytes # (Manual) Eosinophils # (Manual) Basophils # (Manual) PT INR D-Dimer ABG pH POC ABG pCO2 POC ABG pO2 ABG pO2 ABG HCO3 ABG O2 Saturation ABG Base Excess ABG Hemoglobin ABG Oxyhemoglobin ABG Potassium ABG Glucose Oxyhemoglobin Carboxyhemoglobin Sodium Potassium Chloride 96.4 L Carbon Dioxide 32 H D BUN Creatinine < 0.2 L Glucose 134 H POC Glucose Calcium Ferritin Total Bilirubin Alkaline Phosphatase Lactate Dehydrogenase Total Creatine Kinase CK-MB (CK-2) Rel Index Troponin T 0.151 H* C-Reactive Protein Total Protein Albumin Prealbumin LDL Cholesterol Direct HDL Cholesterol 29 L Arterial Blood Glucose Arterial Blood Ionized Calcium Urine WBC (Auto) 04/23/20 04/23/20 04/24/20 06:03 23:41 05:28 WBC RBC 3.56 L Hgb 9.5 L Hct 28.9 L MCV 81 L MCH 27 L RDW 17.4 H Plt Count 462 H Lymph % (Auto) Mills % (Auto) Lymph # (Auto) [place] # (Auto) Seg Neutrophils % Seg Neuts % (Manual) 80.0 H Lymphocytes % (Manual) Monocytes % (Manual) Basophils % (Manual) Seg Neutrophils # Seg Neutrophils # Man Lymphocytes # (Manual) Monocytes # (Manual) Eosinophils # (Manual) Basophils # (Manual) PT INR D-Dimer ABG pH POC ABG pCO2 POC ABG pO2 ABG pO2 ABG HCO3 ABG O2 Saturation ABG Base Excess ABG Hemoglobin ABG Oxyhemoglobin ABG Potassium ABG Glucose Oxyhemoglobin Carboxyhemoglobin Sodium Potassium Chloride Carbon Dioxide BUN Creatinine Glucose POC Glucose 132 H 117 H Calcium Ferritin Total Bilirubin Alkaline Phosphatase Lactate Dehydrogenase Total Creatine Kinase CK-MB (CK-2) Rel Index Troponin T C-Reactive Protein Total Protein Albumin Prealbumin LDL Cholesterol Direct HDL Cholesterol Arterial Blood Glucose Arterial Blood Ionized Calcium Urine WBC (Auto) 04/24/20 04/24/20 04/24/20 05:28 05:28 05:33 WBC RBC Hgb Hct MCV MCH RDW Plt Count Lymph % (Auto) Mills % (Auto) Lymph # (Auto) [place] # (Auto) Seg Neutrophils % Seg Neuts % (Manual) Lymphocytes % (Manual) Monocytes % (Manual) Basophils % (Manual) Seg Neutrophils # Seg Neutrophils # Man Lymphocytes # (Manual) Monocytes # (Manual) Eosinophils # (Manual) Basophils # (Manual) PT INR D-Dimer ABG pH POC ABG pCO2 POC ABG pO2 ABG pO2 ABG HCO3 ABG O2 Saturation ABG Base Excess ABG Hemoglobin ABG Oxyhemoglobin ABG Potassium ABG Glucose Oxyhemoglobin Carboxyhemoglobin Sodium Potassium Chloride 96.1 L Carbon Dioxide 40 H D BUN Creatinine < 0.2 L Glucose 115 H POC Glucose 109 H Calcium Ferritin Total Bilirubin Alkaline Phosphatase Lactate Dehydrogenase Total Creatine Kinase CK-MB (CK-2) Rel Index Troponin T 0.181 H* C-Reactive Protein Total Protein Albumin Prealbumin LDL Cholesterol Direct HDL Cholesterol Arterial Blood Glucose Arterial Blood Ionized Calcium Urine WBC (Auto) 04/24/20 04/24/20 04/25/20 11:17 18:23 00:12 WBC RBC Hgb Hct MCV MCH RDW Plt Count Lymph % (Auto) Mills % (Auto) Lymph # (Auto) [place] # (Auto) Seg Neutrophils % Seg Neuts % (Manual) Lymphocytes % (Manual) Monocytes % (Manual) Basophils % (Manual) Seg Neutrophils # Seg Neutrophils # Man Lymphocytes # (Manual) Monocytes # (Manual) Eosinophils # (Manual) Basophils # (Manual) PT INR D-Dimer ABG pH POC ABG pCO2 POC ABG pO2 ABG pO2 ABG HCO3 ABG O2 Saturation ABG Base Excess ABG Hemoglobin ABG Oxyhemoglobin ABG Potassium ABG Glucose Oxyhemoglobin Carboxyhemoglobin Sodium Potassium Chloride Carbon Dioxide BUN Creatinine Glucose POC Glucose 117 H 109 H 113 H Calcium Ferritin Total Bilirubin Alkaline Phosphatase Lactate Dehydrogenase Total Creatine Kinase CK-MB (CK-2) Rel Index Troponin T C-Reactive Protein Total Protein Albumin Prealbumin LDL Cholesterol Direct HDL Cholesterol Arterial Blood Glucose Arterial Blood Ionized Calcium Urine WBC (Auto) 04/25/20 04/25/20 04/25/20 06:34 06:34 11:28 WBC 11.7 H RBC Hgb 10.0 L Hct 31.7 L MCV 82 L MCH 26 L RDW 17.5 H Plt Count 564 H Lymph % (Auto) [place] % (Auto) Lymph # (Auto) [place] # (Auto) Seg Neutrophils % Seg Neuts % (Manual) 78.0 H Lymphocytes % (Manual) 10.0 L Monocytes % (Manual) 9.0 H Basophils % (Manual) Seg Neutrophils # Seg Neutrophils # Man 9.1 H Lymphocytes # (Manual) Monocytes # (Manual) 1.1 H Eosinophils # (Manual) Basophils # (Manual) PT INR D-Dimer ABG pH POC ABG pCO2 POC ABG pO2 ABG pO2 ABG HCO3 ABG O2 Saturation ABG Base Excess ABG Hemoglobin ABG Oxyhemoglobin ABG Potassium ABG Glucose Oxyhemoglobin Carboxyhemoglobin Sodium Potassium Chloride Carbon Dioxide 39 H BUN Creatinine < 0.2 L Glucose 103 H POC Glucose 112 H Calcium Ferritin Total Bilirubin Alkaline Phosphatase Lactate Dehydrogenase Total Creatine Kinase CK-MB (CK-2) Rel Index Troponin T C-Reactive Protein Total Protein Albumin Prealbumin LDL Cholesterol Direct HDL Cholesterol Arterial Blood Glucose Arterial Blood Ionized Calcium Urine WBC (Auto) 04/27/20 04/27/20 04/27/20 11:48 17:08 23:31 WBC RBC Hgb Hct MCV MCH RDW Plt Count Lymph % (Auto) Mills % (Auto) Lymph # (Auto) [place] # (Auto) Seg Neutrophils % Seg Neuts % (Manual) Lymphocytes % (Manual) Monocytes % (Manual) Basophils % (Manual) Seg Neutrophils # Seg Neutrophils # Man Lymphocytes # (Manual) Monocytes # (Manual) Eosinophils # (Manual) Basophils # (Manual) PT INR D-Dimer ABG pH POC ABG pCO2 POC ABG pO2 ABG pO2 ABG HCO3 ABG O2 Saturation ABG Base Excess ABG Hemoglobin ABG Oxyhemoglobin ABG Potassium ABG Glucose Oxyhemoglobin Carboxyhemoglobin Sodium Potassium Chloride Carbon Dioxide BUN Creatinine Glucose POC Glucose 124 H 118 H 122 H Calcium Ferritin Total Bilirubin Alkaline Phosphatase Lactate Dehydrogenase Total Creatine Kinase CK-MB (CK-2) Rel Index Troponin T C-Reactive Protein Total Protein Albumin Prealbumin LDL Cholesterol Direct HDL Cholesterol Arterial Blood Glucose Arterial Blood Ionized Calcium Urine WBC (Auto) 04/28/20 04/29/20 04/29/20 05:42 00:14 05:30 WBC RBC Hgb Hct MCV MCH RDW Plt Count Lymph % (Auto) Mills % (Auto) Lymph # (Auto) [place] # (Auto) Seg Neutrophils % Seg Neuts % (Manual) Lymphocytes % (Manual) Monocytes % (Manual) Basophils % (Manual) Seg Neutrophils # Seg Neutrophils # Man Lymphocytes # (Manual) Monocytes # (Manual) Eosinophils # (Manual) Basophils # (Manual) PT INR D-Dimer ABG pH POC ABG pCO2 POC ABG pO2 ABG pO2 ABG HCO3 ABG O2 Saturation ABG Base Excess ABG Hemoglobin ABG Oxyhemoglobin ABG Potassium ABG Glucose Oxyhemoglobin Carboxyhemoglobin Sodium Potassium Chloride Carbon Dioxide BUN Creatinine Glucose POC Glucose 122 H 115 H 123 H Calcium Ferritin Total Bilirubin Alkaline Phosphatase Lactate Dehydrogenase Total Creatine Kinase CK-MB (CK-2) Rel Index Troponin T C-Reactive Protein Total Protein Albumin Prealbumin LDL Cholesterol Direct HDL Cholesterol Arterial Blood Glucose Arterial Blood Ionized Calcium Urine WBC (Auto) 04/30/20 05/01/20 05/01/20 00:29 05:39 12:30 WBC RBC Hgb Hct MCV MCH RDW Plt Count Lymph % (Auto) Mills % (Auto) Lymph # (Auto) [place] # (Auto) Seg Neutrophils % Seg Neuts % (Manual) Lymphocytes % (Manual) Monocytes % (Manual) Basophils % (Manual) Seg Neutrophils # Seg Neutrophils # Man Lymphocytes # (Manual) Monocytes # (Manual) Eosinophils # (Manual) Basophils # (Manual) PT INR D-Dimer ABG pH POC ABG pCO2 POC ABG pO2 ABG pO2 ABG HCO3 ABG O2 Saturation ABG Base Excess ABG Hemoglobin ABG Oxyhemoglobin ABG Potassium ABG Glucose Oxyhemoglobin Carboxyhemoglobin Sodium Potassium Chloride Carbon Dioxide BUN Creatinine Glucose POC Glucose 106 H 109 H 108 H Calcium Ferritin Total Bilirubin Alkaline Phosphatase Lactate Dehydrogenase Total Creatine Kinase CK-MB (CK-2) Rel Index Troponin T C-Reactive Protein Total Protein Albumin Prealbumin LDL Cholesterol Direct HDL Cholesterol Arterial Blood Glucose Arterial Blood Ionized Calcium Urine WBC (Auto) 05/01/20 05/03/20 05/03/20 23:35 05:09 11:36 WBC RBC Hgb Hct MCV MCH RDW Plt Count Lymph % (Auto) Mills % (Auto) Lymph # (Auto) [place] # (Auto) Seg Neutrophils % Seg Neuts % (Manual) Lymphocytes % (Manual) Monocytes % (Manual) Basophils % (Manual) Seg Neutrophils # Seg Neutrophils # Man Lymphocytes # (Manual) Monocytes # (Manual) Eosinophils # (Manual) Basophils # (Manual) PT INR D-Dimer ABG pH POC ABG pCO2 POC ABG pO2 ABG pO2 ABG HCO3 ABG O2 Saturation ABG Base Excess ABG Hemoglobin ABG Oxyhemoglobin ABG Potassium ABG Glucose Oxyhemoglobin Carboxyhemoglobin Sodium Potassium Chloride Carbon Dioxide BUN Creatinine Glucose POC Glucose 116 H 117 H 116 H Calcium Ferritin Total Bilirubin Alkaline Phosphatase Lactate Dehydrogenase Total Creatine Kinase CK-MB (CK-2) Rel Index Troponin T C-Reactive Protein Total Protein Albumin Prealbumin LDL Cholesterol Direct HDL Cholesterol Arterial Blood Glucose Arterial Blood Ionized Calcium Urine WBC (Auto) 05/03/20 05/03/20 05/03/20 14:06 14:06 23:39 WBC 12.5 H RBC Hgb 10.0 L Hct 31.2 L MCV 80 L MCH 26 L RDW 17.6 H Plt Count 488 H Lymph % (Auto) [place] % (Auto) Lymph # (Auto) [place] # (Auto) Seg Neutrophils % Seg Neuts % (Manual) Lymphocytes % (Manual) Monocytes % (Manual) Basophils % (Manual) Seg Neutrophils # Seg Neutrophils # Man Lymphocytes # (Manual) Monocytes # (Manual) Eosinophils # (Manual) Basophils # (Manual) PT INR D-Dimer ABG pH POC ABG pCO2 POC ABG pO2 ABG pO2 ABG HCO3 ABG O2 Saturation ABG Base Excess ABG Hemoglobin ABG Oxyhemoglobin ABG Potassium ABG Glucose Oxyhemoglobin Carboxyhemoglobin Sodium Potassium Chloride 95.4 L Carbon Dioxide 40 H BUN Creatinine < 0.2 L Glucose 121 H POC Glucose 107 H Calcium Ferritin Total Bilirubin Alkaline Phosphatase Lactate Dehydrogenase Total Creatine Kinase CK-MB (CK-2) Rel Index Troponin T C-Reactive Protein Total Protein Albumin Prealbumin LDL Cholesterol Direct HDL Cholesterol Arterial Blood Glucose Arterial Blood Ionized Calcium Urine WBC (Auto) 05/04/20 05/04/20 05/04/20 11:31 16:57 23:18 WBC RBC Hgb Hct MCV MCH RDW Plt Count Lymph % (Auto) Mills % (Auto) Lymph # (Auto) [place] # (Auto) Seg Neutrophils % Seg Neuts % (Manual) Lymphocytes % (Manual) Monocytes % (Manual) Basophils % (Manual) Seg Neutrophils # Seg Neutrophils # Man Lymphocytes # (Manual) Monocytes # (Manual) Eosinophils # (Manual) Basophils # (Manual) PT INR D-Dimer ABG pH POC ABG pCO2 POC ABG pO2 ABG pO2 ABG HCO3 ABG O2 Saturation ABG Base Excess ABG Hemoglobin ABG Oxyhemoglobin ABG Potassium ABG Glucose Oxyhemoglobin Carboxyhemoglobin Sodium Potassium Chloride Carbon Dioxide BUN Creatinine Glucose POC Glucose 113 H 126 H 126 H Calcium Ferritin Total Bilirubin Alkaline Phosphatase Lactate Dehydrogenase Total Creatine Kinase CK-MB (CK-2) Rel Index Troponin T C-Reactive Protein Total Protein Albumin Prealbumin LDL Cholesterol Direct HDL Cholesterol Arterial Blood Glucose Arterial Blood Ionized Calcium Urine WBC (Auto) 05/05/20 05/05/20 05/05/20 05:32 11:11 23:57 WBC RBC Hgb Hct MCV MCH RDW Plt Count Lymph % (Auto) [place] % (Auto) Lymph # (Auto) [place] # (Auto) Seg Neutrophils % Seg Neuts % (Manual) Lymphocytes % (Manual) Monocytes % (Manual) Basophils % (Manual) Seg Neutrophils # Seg Neutrophils # Man Lymphocytes # (Manual) Monocytes # (Manual) Eosinophils # (Manual) Basophils # (Manual) PT INR D-Dimer ABG pH POC ABG pCO2 POC ABG pO2 ABG pO2 ABG HCO3 ABG O2 Saturation ABG Base Excess ABG Hemoglobin ABG Oxyhemoglobin ABG Potassium ABG Glucose Oxyhemoglobin Carboxyhemoglobin Sodium Potassium Chloride Carbon Dioxide BUN Creatinine Glucose POC Glucose 109 H 124 H 119 H Calcium Ferritin Total Bilirubin Alkaline Phosphatase Lactate Dehydrogenase Total Creatine Kinase CK-MB (CK-2) Rel Index Troponin T C-Reactive Protein Total Protein Albumin Prealbumin LDL Cholesterol Direct HDL Cholesterol Arterial Blood Glucose Arterial Blood Ionized Calcium Urine WBC (Auto) 05/06/20 05/06/20 05/07/20 05:34 23:08 04:43 WBC RBC Hgb 10.1 L Hct 31.9 L MCV 81 L MCH 25 L RDW 17.6 H Plt Count 506 H Lymph % (Auto) Mills % (Auto) 8.6 H Lymph # (Auto) [place] # (Auto) 0.9 H Seg Neutrophils % Seg Neuts % (Manual) Lymphocytes % (Manual) Monocytes % (Manual) Basophils % (Manual) Seg Neutrophils # Seg Neutrophils # Man Lymphocytes # (Manual) Monocytes # (Manual) Eosinophils # (Manual) Basophils # (Manual) PT INR D-Dimer ABG pH POC ABG pCO2 POC ABG pO2 ABG pO2 ABG HCO3 ABG O2 Saturation ABG Base Excess ABG Hemoglobin ABG Oxyhemoglobin ABG Potassium ABG Glucose Oxyhemoglobin Carboxyhemoglobin Sodium Potassium Chloride Carbon Dioxide BUN Creatinine Glucose POC Glucose 121 H 107 H Calcium Ferritin Total Bilirubin Alkaline Phosphatase Lactate Dehydrogenase Total Creatine Kinase CK-MB (CK-2) Rel Index Troponin T C-Reactive Protein Total Protein Albumin Prealbumin LDL Cholesterol Direct HDL Cholesterol Arterial Blood Glucose Arterial Blood Ionized Calcium Urine WBC (Auto) 05/07/20 05/07/20 05/07/20 06:18 17:13 23:29 WBC RBC Hgb Hct MCV MCH RDW Plt Count Lymph % (Auto) Mills % (Auto) Lymph # (Auto) [place] # (Auto) Seg Neutrophils % Seg Neuts % (Manual) Lymphocytes % (Manual) Monocytes % (Manual) Basophils % (Manual) Seg Neutrophils # Seg Neutrophils # Man Lymphocytes # (Manual) Monocytes # (Manual) Eosinophils # (Manual) Basophils # (Manual) PT INR D-Dimer ABG pH POC ABG pCO2 POC ABG pO2 ABG pO2 ABG HCO3 ABG O2 Saturation ABG Base Excess ABG Hemoglobin ABG Oxyhemoglobin ABG Potassium ABG Glucose Oxyhemoglobin Carboxyhemoglobin Sodium Potassium Chloride Carbon Dioxide BUN Creatinine Glucose POC Glucose 121 H 122 H 114 H Calcium Ferritin Total Bilirubin Alkaline Phosphatase Lactate Dehydrogenase Total Creatine Kinase CK-MB (CK-2) Rel Index Troponin T C-Reactive Protein Total Protein Albumin Prealbumin LDL Cholesterol Direct HDL Cholesterol Arterial Blood Glucose Arterial Blood Ionized Calcium Urine WBC (Auto) 05/08/20 05/08/20 05/08/20 05:20 11:57 23:42 WBC RBC Hgb Hct MCV MCH RDW Plt Count Lymph % (Auto) [place] % (Auto) Lymph # (Auto) [place] # (Auto) Seg Neutrophils % Seg Neuts % (Manual) Lymphocytes % (Manual) Monocytes % (Manual) Basophils % (Manual) Seg Neutrophils # Seg Neutrophils # Man Lymphocytes # (Manual) Monocytes # (Manual) Eosinophils # (Manual) Basophils # (Manual) PT INR D-Dimer ABG pH POC ABG pCO2 POC ABG pO2 ABG pO2 ABG HCO3 ABG O2 Saturation ABG Base Excess ABG Hemoglobin ABG Oxyhemoglobin ABG Potassium ABG Glucose Oxyhemoglobin Carboxyhemoglobin Sodium Potassium Chloride Carbon Dioxide BUN Creatinine Glucose POC Glucose 121 H 113 H 135 H Calcium Ferritin Total Bilirubin Alkaline Phosphatase Lactate Dehydrogenase Total Creatine Kinase CK-MB (CK-2) Rel Index Troponin T C-Reactive Protein Total Protein Albumin Prealbumin LDL Cholesterol Direct HDL Cholesterol Arterial Blood Glucose Arterial Blood Ionized Calcium Urine WBC (Auto) 05/09/20 05/09/20 05/09/20 05:31 11:11 16:06 WBC RBC Hgb Hct MCV MCH RDW Plt Count Lymph % (Auto) [place] % (Auto) Lymph # (Auto) [place] # (Auto) Seg Neutrophils % Seg Neuts % (Manual) Lymphocytes % (Manual) Monocytes % (Manual) Basophils % (Manual) Seg Neutrophils # Seg Neutrophils # Man Lymphocytes # (Manual) Monocytes # (Manual) Eosinophils # (Manual) Basophils # (Manual) PT INR D-Dimer ABG pH POC ABG pCO2 POC ABG pO2 ABG pO2 ABG HCO3 ABG O2 Saturation ABG Base Excess ABG Hemoglobin ABG Oxyhemoglobin ABG Potassium ABG Glucose Oxyhemoglobin Carboxyhemoglobin Sodium 136 L Potassium Chloride 97.0 L Carbon Dioxide 34 H BUN Creatinine < 0.2 L Glucose 107 H POC Glucose 66 L 127 H Calcium Ferritin Total Bilirubin Alkaline Phosphatase Lactate Dehydrogenase Total Creatine Kinase CK-MB (CK-2) Rel Index Troponin T C-Reactive Protein Total Protein Albumin Prealbumin LDL Cholesterol Direct HDL Cholesterol Arterial Blood Glucose Arterial Blood Ionized Calcium Urine WBC (Auto) 05/09/20 05/10/20 05/10/20 23:19 04:59 11:28 WBC RBC Hgb Hct MCV MCH RDW Plt Count Lymph % (Auto) [place] % (Auto) Lymph # (Auto) [place] # (Auto) Seg Neutrophils % Seg Neuts % (Manual) Lymphocytes % (Manual) Monocytes % (Manual) Basophils % (Manual) Seg Neutrophils # Seg Neutrophils # Man Lymphocytes # (Manual) Monocytes # (Manual) Eosinophils # (Manual) Basophils # (Manual) PT INR D-Dimer ABG pH POC ABG pCO2 POC ABG pO2 ABG pO2 ABG HCO3 ABG O2 Saturation ABG Base Excess ABG Hemoglobin ABG Oxyhemoglobin ABG Potassium ABG Glucose Oxyhemoglobin Carboxyhemoglobin Sodium Potassium Chloride Carbon Dioxide BUN Creatinine Glucose POC Glucose 108 H 126 H 124 H Calcium Ferritin Total Bilirubin Alkaline Phosphatase Lactate Dehydrogenase Total Creatine Kinase CK-MB (CK-2) Rel Index Troponin T C-Reactive Protein Total Protein Albumin Prealbumin LDL Cholesterol Direct HDL Cholesterol Arterial Blood Glucose Arterial Blood Ionized Calcium Urine WBC (Auto) 05/10/20 05/11/20 05/11/20 23:56 06:13 11:44 WBC RBC Hgb Hct MCV MCH RDW Plt Count Lymph % (Auto) [place] % (Auto) Lymph # (Auto) [place] # (Auto) Seg Neutrophils % Seg Neuts % (Manual) Lymphocytes % (Manual) Monocytes % (Manual) Basophils % (Manual) Seg Neutrophils # Seg Neutrophils # Man Lymphocytes # (Manual) Monocytes # (Manual) Eosinophils # (Manual) Basophils # (Manual) PT INR D-Dimer ABG pH POC ABG pCO2 POC ABG pO2 ABG pO2 ABG HCO3 ABG O2 Saturation ABG Base Excess ABG Hemoglobin ABG Oxyhemoglobin ABG Potassium ABG Glucose Oxyhemoglobin Carboxyhemoglobin Sodium Potassium Chloride Carbon Dioxide BUN Creatinine Glucose POC Glucose 113 H 124 H 125 H Calcium Ferritin Total Bilirubin Alkaline Phosphatase Lactate Dehydrogenase Total Creatine Kinase CK-MB (CK-2) Rel Index Troponin T C-Reactive Protein Total Protein Albumin Prealbumin LDL Cholesterol Direct HDL Cholesterol Arterial Blood Glucose Arterial Blood Ionized Calcium Urine WBC (Auto) 05/12/20 05/12/20 05/12/20 06:04 12:17 17:23 WBC RBC Hgb Hct MCV MCH RDW Plt Count Lymph % (Auto) [place] % (Auto) Lymph # (Auto) [place] # (Auto) Seg Neutrophils % Seg Neuts % (Manual) Lymphocytes % (Manual) Monocytes % (Manual) Basophils % (Manual) Seg Neutrophils # Seg Neutrophils # Man Lymphocytes # (Manual) Monocytes # (Manual) Eosinophils # (Manual) Basophils # (Manual) PT INR D-Dimer ABG pH POC ABG pCO2 POC ABG pO2 ABG pO2 ABG HCO3 ABG O2 Saturation ABG Base Excess ABG Hemoglobin ABG Oxyhemoglobin ABG Potassium ABG Glucose Oxyhemoglobin Carboxyhemoglobin Sodium Potassium Chloride Carbon Dioxide BUN Creatinine Glucose POC Glucose 135 H 136 H 133 H Calcium Ferritin Total Bilirubin Alkaline Phosphatase Lactate Dehydrogenase Total Creatine Kinase CK-MB (CK-2) Rel Index Troponin T C-Reactive Protein Total Protein Albumin Prealbumin LDL Cholesterol Direct HDL Cholesterol Arterial Blood Glucose Arterial Blood Ionized Calcium Urine WBC (Auto) 05/12/20 05/13/20 05/13/20 23:34 05:36 11:25 WBC RBC Hgb Hct MCV MCH RDW Plt Count Lymph % (Auto) [place] % (Auto) Lymph # (Auto) [place] # (Auto) Seg Neutrophils % Seg Neuts % (Manual) Lymphocytes % (Manual) Monocytes % (Manual) Basophils % (Manual) Seg Neutrophils # Seg Neutrophils # Man Lymphocytes # (Manual) Monocytes # (Manual) Eosinophils # (Manual) Basophils # (Manual) PT INR D-Dimer ABG pH POC ABG pCO2 POC ABG pO2 ABG pO2 ABG HCO3 ABG O2 Saturation ABG Base Excess ABG Hemoglobin ABG Oxyhemoglobin ABG Potassium ABG Glucose Oxyhemoglobin Carboxyhemoglobin Sodium Potassium Chloride Carbon Dioxide BUN Creatinine Glucose POC Glucose 141 H 131 H 148 H Calcium Ferritin Total Bilirubin Alkaline Phosphatase Lactate Dehydrogenase Total Creatine Kinase CK-MB (CK-2) Rel Index Troponin T C-Reactive Protein Total Protein Albumin Prealbumin LDL Cholesterol Direct HDL Cholesterol Arterial Blood Glucose Arterial Blood Ionized Calcium Urine WBC (Auto) 05/13/20 05/14/20 05/14/20 16:40 00:11 05:03 WBC RBC Hgb Hct MCV MCH RDW Plt Count Lymph % (Auto) [place] % (Auto) Lymph # (Auto) [place] # (Auto) Seg Neutrophils % Seg Neuts % (Manual) Lymphocytes % (Manual) Monocytes % (Manual) Basophils % (Manual) Seg Neutrophils # Seg Neutrophils # Man Lymphocytes # (Manual) Monocytes # (Manual) Eosinophils # (Manual) Basophils # (Manual) PT INR D-Dimer ABG pH POC ABG pCO2 POC ABG pO2 ABG pO2 ABG HCO3 ABG O2 Saturation ABG Base Excess ABG Hemoglobin ABG Oxyhemoglobin ABG Potassium ABG Glucose Oxyhemoglobin Carboxyhemoglobin Sodium Potassium Chloride Carbon Dioxide BUN Creatinine Glucose POC Glucose 118 H 128 H 129 H Calcium Ferritin Total Bilirubin Alkaline Phosphatase Lactate Dehydrogenase Total Creatine Kinase CK-MB (CK-2) Rel Index Troponin T C-Reactive Protein Total Protein Albumin Prealbumin LDL Cholesterol Direct HDL Cholesterol Arterial Blood Glucose Arterial Blood Ionized Calcium Urine WBC (Auto) 05/14/20 11:38 WBC RBC Hgb Hct MCV MCH RDW Plt Count Lymph % (Auto) [place] % (Auto) Lymph # (Auto) [place] # (Auto) Seg Neutrophils % Seg Neuts % (Manual) Lymphocytes % (Manual) Monocytes % (Manual) Basophils % (Manual) Seg Neutrophils # Seg Neutrophils # Man Lymphocytes # (Manual) Monocytes # (Manual) Eosinophils # (Manual) Basophils # (Manual) PT INR D-Dimer ABG pH POC ABG pCO2 POC ABG pO2 ABG pO2 ABG HCO3 ABG O2 Saturation ABG Base Excess ABG Hemoglobin ABG Oxyhemoglobin ABG Potassium ABG Glucose Oxyhemoglobin Carboxyhemoglobin Sodium Potassium Chloride Carbon Dioxide BUN Creatinine Glucose POC Glucose 134 H Calcium Ferritin Total Bilirubin Alkaline Phosphatase Lactate Dehydrogenase Total Creatine Kinase CK-MB (CK-2) Rel Index Troponin T C-Reactive Protein Total Protein Albumin Prealbumin LDL Cholesterol Direct HDL Cholesterol Arterial Blood Glucose Arterial Blood Ionized Calcium Urine WBC (Auto) Allied health notes reviewed: nursing
[2020-05-14] MEDS: SENNOSIDES 8.6 MG TAB PO SCH (21:18)
[2020-05-14] MEDS: ENOXAPARIN 40 MG/0.4 ML INJ SUB-Q SCH (21:19)
[2020-05-14] MEDS: ZOLPIDEM 5 MG TAB PO PRN (21:19)
[2020-05-15] MEDS: MORPHINE 2 MG/1 ML INJ IV PRN ×3 (03:35→20:09)
[2020-05-15] MEDS: ALPRAZolam 0.5 MG TAB PO PRN ×2 (04:34→12:28)
[2020-05-15] MEDS: traMADol 50 MG TAB PO PRN ×2 (04:34→23:01)
[2020-05-15] MEDS: PREGABALIN 75 MG CAP PO SCH ×2 (11:36→23:03)
[2020-05-15] MEDS: BACLOFEN 10 MG TAB PO SCH ×2 (11:36→23:03)
[2020-05-15] MEDS: ASPIRIN EC 81 MG TAB PO SCH (11:37)
[2020-05-15] MEDS: LANSOPRAZOLE 30 MG SOLUTAB FEEDTUBE SCH (11:38)
[2020-05-15] MEDS: MAGIC MOUTHWASH 30ML PO SCH ×3 (11:39→20:04)
[2020-05-15] MEDS: GLYCOPYRROLATE 1 MG TAB PO SCH ×3 (12:27→20:03)
[2020-05-15] MEDS: TAMSULOSIN 0.4 MG CAP PO SCH (12:27)
[2020-05-15] MEDS: DOCUSATE SODIUM 100 MG/10 ML ORAL LIQD FEEDTUBE SCH ×2 (12:27→23:02)
--- NOTE | 2020-05-15 14:13 | Progress Note ---
Assessment and Plan Patient sleeping. Patient is still on Pressure support ventilation, pressure support 10, FIO2 30%, PEEP 6 and O2 saturation running 100%. Recommend Continue spontaneous breathing trials as tolerated.Respiratory therapy told me, Patient Not tolearing T tube trial ' Recommend to decrease pressure support to 5.Patient afebrile and has leukocytosis. Chest xray done 05/02/20 reported Interval worsening of right lung base opacity now appears to be pleural parenchymal. This may ganga worsened infectious process or development of right-sided pleural effusion and worsened right lung base atelectasis. Left lung base opacity is stable. Tracheostomy in stable position. Patient right lung base infiltrate reported intervel worsening, patient has no leukocytosis, recommend to place him antibiotic like zosyn. Repeat chest xray 05/11/20 reported Mild interval improvement in the hazy opacity at the right lung base as described. I suspect this represents an improving atelectasis over effusion. - Patient Problems (1) Acute on chronic respiratory failure with hypoxia and hypercapnia Current Visit: Yes Status: Acute Plan to address problem: Patient is resting on Pressure support 10, FIO2 30%, PEEP 6. Albuterol inhaler 2 puffs po qid. Continue S/C Lovenox. Continue prevacid. Recommend to decrease pressure support 5. (2) Bleeding from wound Current Visit: Yes Status: Acute Plan to address problem: Management primary care , surgery and wound care. (3) Elevated d-dimer Current Visit: Yes Status: Acute Plan to address problem: Patients venous doppler studies of legs, CTA chest reported Negative for VTE. Patient is on S/C Lovenox 40 mg qd. (4) Elevated troponin Current Visit: Yes Status: Acute Plan to address problem: Management as per primary care and cardiology (5) NSTEMI (non-ST elevated myocardial infarction) Current Visit: Yes Status: Acute Plan to address problem: Management as per cardiology. (6) Pneumonia Current Visit: Yes Status: Acute Qualifiers: Laterality: bilateral Plan to address problem: Patient afebrile . Has mild leukocytosis. Repeat Chest xray done 05/02/20 reported Interval worsening of right lung base opacity now appears to be pleural parenchymal. This may be a worsened infectious process or development of right-sided pleural effusion and worsened right lung base atelectasis. Left lung base opacity is stable. Tracheostomy in stable position. Patient right lung base infiltrate reported intervel worsening, patient has no leukocytosis, recommend to place him antibiotic like zosyn. Repeating chest xray and ABGs. Repeat chest xray 05/11/20 reported Mild interval improvement in the hazy opacity at the right lung base as described. I suspect this represents an improving atelectasis over effusion. Subjective Date of service: 05/15/20 Principal diagnosis: Ac on Ch Hypercapnic & hypoxemic Resp Failure; Severe Sepsis; Jamar PNA; ALS Interval history: Patient sleeping. Patient is still on Pressure support ventilation, pressure support 10, FIO2 30%, PEEP 6 and O2 saturation running 100%. Recommend Continue spontaneous breathing trials as tolerated.Respiratory therapy told me, Patient Not tolearing T tube trial ' Recommend to decrease pressure support to 5.Patient afebrile and has leukocytosis. Chest xray done 05/02/20 reported Interval worsening of right lung base opacity now appears to be pleural parenchymal. This may ganga worsened infectious process or development of right- sided pleural effusion and worsened right lung base atelectasis. Left lung base opacity is stable. Tracheostomy in stable position. Patient right lung base infiltrate reported intervel worsening, patient has no leukocytosis, recommend to place him antibiotic like zosyn. Repeat chest xray 05/11/20 reported Mild interval improvement in the hazy opacity at the right lung base as described. I suspect this represents an improving atelectasis over effusion. Objective Vital Signs - 12hr 05/15/20 05/15/20 05/15/20 03:00 03:30 03:35 Temperature Pulse Rate 116 H Pulse Rate [ From Monitor] Respiratory 24 30 H Rate Respiratory 24 Rate [Back] Blood Pressure 101/86 O2 Sat by Pulse 95 Oximetry O2 Sat by Pulse Oximetry [ Assessment] 05/15/20 05/15/20 05/15/20 03:41 04:00 04:05 Temperature 98.3 F Pulse Rate 94 H Pulse Rate [ 94 H From Monitor] Respiratory 18 16 Rate Respiratory Rate [Back] Blood Pressure 101/86 O2 Sat by Pulse 91 Oximetry O2 Sat by Pulse Oximetry [ Assessment] 05/15/20 05/15/20 05/15/20 04:34 04:38 04:43 Temperature Pulse Rate 96 H 104 H Pulse Rate [ From Monitor] Respiratory 16 Rate Respiratory Rate [Back] Blood Pressure 163/107 O2 Sat by Pulse 97 Oximetry O2 Sat by Pulse Oximetry [ Assessment] 05/15/20 05/15/20 05/15/20 04:44 05:00 05:34 Temperature Pulse Rate 93 H Pulse Rate [ From Monitor] Respiratory 23 20 Rate Respiratory Rate [Back] Blood Pressure 153/107 O2 Sat by Pulse 100 Oximetry O2 Sat by Pulse 97 Oximetry [ Assessment] 05/15/20 05/15/20 05/15/20 06:00 07:00 07:50 Temperature 98.0 F Pulse Rate 89 104 H 104 H Pulse Rate [ From Monitor] Respiratory 23 20 19 Rate Respiratory Rate [Back] Blood Pressure 130/90 125/91 125/91 O2 Sat by Pulse 97 96 96 Oximetry O2 Sat by Pulse Oximetry [ Assessment] 05/15/20 05/15/20 05/15/20 07:52 08:00 09:00 Temperature Pulse Rate 98 H 94 H Pulse Rate [ From Monitor] Respiratory 20 19 Rate Respiratory Rate [Back] Blood Pressure 114/82 119/83 O2 Sat by Pulse Oximetry O2 Sat by Pulse 98 Oximetry [ Assessment] 05/15/20 05/15/20 05/15/20 10:00 11:00 11:35 Temperature Pulse Rate 114 H 106 H 106 H Pulse Rate [ From Monitor] Respiratory 15 22 19 Rate Respiratory Rate [Back] Blood Pressure 112/85 121/81 121/81 O2 Sat by Pulse 99 99 99 Oximetry O2 Sat by Pulse Oximetry [ Assessment] 05/15/20 05/15/20 12:25 12:28 Temperature 98.0 F Pulse Rate Pulse Rate [ From Monitor] Respiratory 17 Rate Respiratory Rate [Back] Blood Pressure O2 Sat by Pulse Oximetry O2 Sat by Pulse Oximetry [ Assessment] Constitutional: no acute distress, asleep, other (thin middle aged male with mildly increased respiratory effort at rest on MVS) Eyes: non-icteric ENT: oropharynx moist, other (S/P Tracheostomy) Neck: supple, no lymphadenopathy, no JVD Effort: mildly labored Ascultation: Bilateral: diminished breath sounds, wheezes, rhonchi (scant in bases) Percussion: Bilateral: not dull Cardiovascular: regular rate and rhythm, other (S1,S2, no murmurs) Gastrointestinal: normoactive bowel sounds, soft, non-tender, non-distended Integumentary: normal, decubitus ulcer (sacral / gluteal) Extremities: no cyanosis, no edema, pulses normal, other (atrophic looking limbs) Neurologic: pupils equal and round, other (motor strength in extremities 1-2/5, awake, alert, mouths words to make needs known) Psychiatric: depressed CBC and BMP: 05/07/20 04:43 05/09/20 16:06 ABG, PT/INR, D-dimer: ABG ABG pH 7.371 (7.320-7.450) 03/08/20 12:34 POC ABG pCO2 63.1 mmHg (32.0-48.0) H 03/08/20 12:34 ABG pCO2 60.1 mm Hg 03/06/20 04:34 POC ABG pO2 90.5 mmHg (83-108) 03/08/20 12:34 ABG pO2 88.6 mm Hg (80.0-90.0) 03/06/20 04:34 POC ABG HCO3 35.7 03/08/20 12:34 ABG O2 Saturation 97.0 % (95.0-99.0) 03/06/20 04:34 PT/INR, D-dimer PT 15.6 Sec. (12.2-14.9) H 02/24/20 09:19 INR 1.21 (0.87-1.13) H 02/24/20 09:19 D-Dimer 1311.96 ng/mlDDU (0-234) H 02/24/20 09:19 Abnormal lab findings: Abnormal Labs 02/24/20 02/24/20 02/24/20 09:19 09:19 09:19 WBC 20.2 H RBC 5.05 H Hgb Hct MCV MCH RDW 15.3 H Plt Count Lymph % (Auto) [place] % (Auto) Lymph # (Auto) [place] # (Auto) Seg Neutrophils % Seg Neuts % (Manual) 86.0 H Lymphocytes % (Manual) 1.0 L Monocytes % (Manual) Basophils % (Manual) Seg Neutrophils # Seg Neutrophils # Man 17.4 H Lymphocytes # (Manual) 0.2 L Monocytes # (Manual) Eosinophils # (Manual) Basophils # (Manual) PT 15.6 H INR 1.21 H D-Dimer 1311.96 H ABG pH POC ABG pCO2 POC ABG pO2 ABG pO2 ABG HCO3 ABG O2 Saturation ABG Base Excess ABG Hemoglobin ABG Oxyhemoglobin ABG Potassium ABG Glucose Oxyhemoglobin Carboxyhemoglobin Sodium 135 L Potassium 3.2 L Chloride 92.2 L Carbon Dioxide BUN 6 L Creatinine < 0.2 L Glucose 124 H POC Glucose Calcium Ferritin Total Bilirubin 2.30 H Alkaline Phosphatase 132 H Lactate Dehydrogenase Total Creatine Kinase CK-MB (CK-2) Rel Index Troponin T 0.080 H C-Reactive Protein Total Protein Albumin 3.6 L Prealbumin LDL Cholesterol Direct 41 L HDL Cholesterol Arterial Blood Glucose Arterial Blood Ionized Calcium Urine WBC (Auto) 02/24/20 02/24/20 02/24/20 09:19 09:58 10:01 WBC RBC Hgb Hct MCV MCH RDW Plt Count Lymph % (Auto) [place] % (Auto) Lymph # (Auto) [place] # (Auto) Seg Neutrophils % Seg Neuts % (Manual) Lymphocytes % (Manual) Monocytes % (Manual) Basophils % (Manual) Seg Neutrophils # Seg Neutrophils # Man Lymphocytes # (Manual) Monocytes # (Manual) Eosinophils # (Manual) Basophils # (Manual) PT INR D-Dimer ABG pH 7.176 L* POC ABG pCO2 POC ABG pO2 ABG pO2 91.2 H ABG HCO3 ABG O2 Saturation ABG Base Excess -4.6 L ABG Hemoglobin ABG Oxyhemoglobin ABG Potassium ABG Glucose Oxyhemoglobin 92.6 L Carboxyhemoglobin Sodium Potassium Chloride Carbon Dioxide BUN Creatinine Glucose POC Glucose Calcium Ferritin 1715.0 H Total Bilirubin Alkaline Phosphatase Lactate Dehydrogenase 303 H Total Creatine Kinase CK-MB (CK-2) Rel Index Troponin T C-Reactive Protein 26.10 H Total Protein Albumin Prealbumin LDL Cholesterol Direct HDL Cholesterol Arterial Blood Glucose Arterial Blood Ionized Calcium Urine WBC (Auto) 02/24/20 02/24/20 02/24/20 11:52 13:45 19:35 WBC RBC Hgb Hct MCV MCH RDW Plt Count Lymph % (Auto) [place] % (Auto) Lymph # (Auto) [place] # (Auto) Seg Neutrophils % Seg Neuts % (Manual) Lymphocytes % (Manual) Monocytes % (Manual) Basophils % (Manual) Seg Neutrophils # Seg Neutrophils # Man Lymphocytes # (Manual) Monocytes # (Manual) Eosinophils # (Manual) Basophils # (Manual) PT INR D-Dimer ABG pH 7.051 L* 7.300 L POC ABG pCO2 POC ABG pO2 ABG pO2 94.7 H 75.1 L ABG HCO3 18.0 L ABG O2 Saturation 93.5 L ABG Base Excess -6.8 L -7.8 L ABG Hemoglobin 13.2 L 11.9 L ABG Oxyhemoglobin ABG Potassium ABG Glucose Oxyhemoglobin 91.0 L 92.7 L Carboxyhemoglobin Sodium Potassium Chloride Carbon Dioxide BUN Creatinine Glucose POC Glucose Calcium Ferritin Total Bilirubin Alkaline Phosphatase Lactate Dehydrogenase Total Creatine Kinase CK-MB (CK-2) Rel Index Troponin T 0.034 H D C-Reactive Protein Total Protein Albumin Prealbumin LDL Cholesterol Direct HDL Cholesterol Arterial Blood Glucose Arterial Blood Ionized Calcium Urine WBC (Auto) 02/25/20 02/25/20 02/25/20 04:00 04:00 12:26 WBC 22.9 H RBC Hgb Hct MCV 83 L MCH 27 L RDW Plt Count 468 H Lymph % (Auto) [place] % (Auto) Lymph # (Auto) [place] # (Auto) Seg Neutrophils % Seg Neuts % (Manual) 89.0 H Lymphocytes % (Manual) 7.0 L Monocytes % (Manual) Basophils % (Manual) Seg Neutrophils # Seg Neutrophils # Man 20.4 H Lymphocytes # (Manual) Monocytes # (Manual) Eosinophils # (Manual) Basophils # (Manual) PT INR D-Dimer ABG pH POC ABG pCO2 POC ABG pO2 ABG pO2 ABG HCO3 ABG O2 Saturation ABG Base Excess ABG Hemoglobin ABG Oxyhemoglobin ABG Potassium 2.6 L ABG Glucose 142 H Oxyhemoglobin Carboxyhemoglobin Sodium Potassium 3.2 L Chloride Carbon Dioxide 18 L BUN Creatinine 0.2 L Glucose 114 H POC Glucose Calcium Ferritin Total Bilirubin Alkaline Phosphatase Lactate Dehydrogenase Total Creatine Kinase CK-MB (CK-2) Rel Index Troponin T C-Reactive Protein Total Protein Albumin 3.5 L Prealbumin LDL Cholesterol Direct HDL Cholesterol Arterial Blood Glucose 142 H Arterial Blood Ionized Calcium Urine WBC (Auto) 02/26/20 02/26/20 02/26/20 15:58 17:00 23:43 WBC RBC Hgb Hct MCV MCH RDW Plt Count Lymph % (Auto) [place] % (Auto) Lymph # (Auto) [place] # (Auto) Seg Neutrophils % Seg Neuts % (Manual) Lymphocytes % (Manual) Monocytes % (Manual) Basophils % (Manual) Seg Neutrophils # Seg Neutrophils # Man Lymphocytes # (Manual) Monocytes # (Manual) Eosinophils # (Manual) Basophils # (Manual) PT INR D-Dimer ABG pH 7.502 H POC ABG pCO2 POC ABG pO2 213.6 H ABG pO2 ABG HCO3 ABG O2 Saturation ABG Base Excess ABG Hemoglobin ABG Oxyhemoglobin 99.2 H ABG Potassium 2.9 L ABG Glucose 160 H Oxyhemoglobin Carboxyhemoglobin 0.4 L Sodium Potassium Chloride Carbon Dioxide BUN Creatinine Glucose POC Glucose 189 H 120 H Calcium Ferritin Total Bilirubin Alkaline Phosphatase Lactate Dehydrogenase Total Creatine Kinase CK-MB (CK-2) Rel Index Troponin T C-Reactive Protein Total Protein Albumin Prealbumin LDL Cholesterol Direct HDL Cholesterol Arterial Blood Glucose 160 H Arterial Blood Ionized Calcium 4.5 L Urine WBC (Auto) 02/27/20 02/27/20 02/27/20 05:00 07:04 17:45 WBC RBC Hgb Hct MCV MCH RDW Plt Count Lymph % (Auto) [place] % (Auto) Lymph # (Auto) [place] # (Auto) Seg Neutrophils % Seg Neuts % (Manual) Lymphocytes % (Manual) Monocytes % (Manual) Basophils % (Manual) Seg Neutrophils # Seg Neutrophils # Man Lymphocytes # (Manual) Monocytes # (Manual) Eosinophils # (Manual) Basophils # (Manual) PT INR D-Dimer ABG pH 7.524 H POC ABG pCO2 POC ABG pO2 ABG pO2 ABG HCO3 ABG O2 Saturation ABG Base Excess ABG Hemoglobin ABG Oxyhemoglobin ABG Potassium 3.0 L ABG Glucose 143 H Oxyhemoglobin Carboxyhemoglobin Sodium Potassium Chloride Carbon Dioxide BUN Creatinine Glucose POC Glucose 154 H 175 H Calcium Ferritin Total Bilirubin Alkaline Phosphatase Lactate Dehydrogenase Total Creatine Kinase CK-MB (CK-2) Rel Index Troponin T C-Reactive Protein Total Protein Albumin Prealbumin LDL Cholesterol Direct HDL Cholesterol Arterial Blood Glucose 143 H Arterial Blood Ionized Calcium Urine WBC (Auto) 02/27/20 02/28/20 02/28/20 Unknown 00:21 04:15 WBC 18.7 H RBC Hgb Hct MCV MCH RDW Plt Count Lymph % (Auto) 8.7 L [place] % (Auto) Lymph # (Auto) [place] # (Auto) 1.2 H Seg Neutrophils % 84.6 H Seg Neuts % (Manual) Lymphocytes % (Manual) Monocytes % (Manual) Basophils % (Manual) Seg Neutrophils # 15.9 H Seg Neutrophils # Man Lymphocytes # (Manual) Monocytes # (Manual) Eosinophils # (Manual) Basophils # (Manual) PT INR D-Dimer ABG pH POC ABG pCO2 POC ABG pO2 ABG pO2 ABG HCO3 ABG O2 Saturation ABG Base Excess ABG Hemoglobin ABG Oxyhemoglobin ABG Potassium ABG Glucose Oxyhemoglobin Carboxyhemoglobin Sodium Potassium 2.9 L* Chloride Carbon Dioxide 33 H D BUN Creatinine < 0.2 L Glucose 157 H POC Glucose 134 H Calcium Ferritin Total Bilirubin Alkaline Phosphatase Lactate Dehydrogenase Total Creatine Kinase CK-MB (CK-2) Rel Index Troponin T C-Reactive Protein Total Protein Albumin Prealbumin LDL Cholesterol Direct HDL Cholesterol Arterial Blood Glucose Arterial Blood Ionized Calcium Urine WBC (Auto) 02/28/20 02/28/20 02/28/20 04:15 05:16 05:39 WBC RBC Hgb Hct MCV MCH RDW Plt Count Lymph % (Auto) [place] % (Auto) Lymph # (Auto) [place] # (Auto) Seg Neutrophils % Seg Neuts % (Manual) Lymphocytes % (Manual) Monocytes % (Manual) Basophils % (Manual) Seg Neutrophils # Seg Neutrophils # Man Lymphocytes # (Manual) Monocytes # (Manual) Eosinophils # (Manual) Basophils # (Manual) PT INR D-Dimer ABG pH POC ABG pCO2 POC ABG pO2 ABG pO2 142.9 H ABG HCO3 34.1 H ABG O2 Saturation ABG Base Excess 8.3 H ABG Hemoglobin ABG Oxyhemoglobin ABG Potassium ABG Glucose Oxyhemoglobin Carboxyhemoglobin Sodium 151 H Potassium Chloride Carbon Dioxide 32 H BUN Creatinine 0.2 L Glucose 167 H POC Glucose 138 H Calcium Ferritin Total Bilirubin Alkaline Phosphatase Lactate Dehydrogenase Total Creatine Kinase CK-MB (CK-2) Rel Index Troponin T C-Reactive Protein Total Protein Albumin Prealbumin LDL Cholesterol Direct HDL Cholesterol Arterial Blood Glucose Arterial Blood Ionized Calcium Urine WBC (Auto) 02/28/20 02/28/20 02/28/20 11:05 11:33 12:54 WBC RBC Hgb Hct MCV MCH RDW Plt Count Lymph % (Auto) [place] % (Auto) Lymph # (Auto) [place] # (Auto) Seg Neutrophils % Seg Neuts % (Manual) Lymphocytes % (Manual) Monocytes % (Manual) Basophils % (Manual) Seg Neutrophils # Seg Neutrophils # Man Lymphocytes # (Manual) Monocytes # (Manual) Eosinophils # (Manual) Basophils # (Manual) PT INR D-Dimer ABG pH POC ABG pCO2 POC ABG pO2 ABG pO2 ABG HCO3 ABG O2 Saturation ABG Base Excess ABG Hemoglobin ABG Oxyhemoglobin ABG Potassium ABG Glucose Oxyhemoglobin Carboxyhemoglobin Sodium Potassium Chloride Carbon Dioxide BUN Creatinine Glucose POC Glucose 160 H Calcium Ferritin Total Bilirubin Alkaline Phosphatase Lactate Dehydrogenase Total Creatine Kinase CK-MB (CK-2) Rel Index Troponin T C-Reactive Protein 4.70 H Total Protein Albumin Prealbumin 0.090 L LDL Cholesterol Direct HDL Cholesterol Arterial Blood Glucose Arterial Blood Ionized Calcium Urine WBC (Auto) 02/28/20 02/29/20 02/29/20 17:34 00:44 04:05 WBC 19.6 H RBC Hgb Hct MCV MCH 27 L RDW 15.4 H Plt Count Lymph % (Auto) [place] % (Auto) Lymph # (Auto) [place] # (Auto) Seg Neutrophils % Seg Neuts % (Manual) 86.0 H Lymphocytes % (Manual) 7.0 L Monocytes % (Manual) Basophils % (Manual) Seg Neutrophils # Seg Neutrophils # Man 16.9 H Lymphocytes # (Manual) Monocytes # (Manual) 1.2 H Eosinophils # (Manual) Basophils # (Manual) PT INR D-Dimer ABG pH POC ABG pCO2 POC ABG pO2 ABG pO2 ABG HCO3 ABG O2 Saturation ABG Base Excess ABG Hemoglobin ABG Oxyhemoglobin ABG Potassium ABG Glucose Oxyhemoglobin Carboxyhemoglobin Sodium Potassium Chloride Carbon Dioxide BUN Creatinine Glucose POC Glucose 136 H 156 H Calcium Ferritin Total Bilirubin Alkaline Phosphatase Lactate Dehydrogenase Total Creatine Kinase CK-MB (CK-2) Rel Index Troponin T C-Reactive Protein Total Protein Albumin Prealbumin LDL Cholesterol Direct HDL Cholesterol Arterial Blood Glucose Arterial Blood Ionized Calcium Urine WBC (Auto) 02/29/20 02/29/20 02/29/20 04:05 05:14 05:33 WBC RBC Hgb Hct MCV MCH RDW Plt Count Lymph % (Auto) [place] % (Auto) Lymph # (Auto) [place] # (Auto) Seg Neutrophils % Seg Neuts % (Manual) Lymphocytes % (Manual) Monocytes % (Manual) Basophils % (Manual) Seg Neutrophils # Seg Neutrophils # Man Lymphocytes # (Manual) Monocytes # (Manual) Eosinophils # (Manual) Basophils # (Manual) PT INR D-Dimer ABG pH POC ABG pCO2 54.3 H POC ABG pO2 124.8 H ABG pO2 ABG HCO3 ABG O2 Saturation ABG Base Excess ABG Hemoglobin ABG Oxyhemoglobin ABG Potassium ABG Glucose 185 H Oxyhemoglobin Carboxyhemoglobin Sodium 148 H Potassium Chloride Carbon Dioxide 33 H BUN Creatinine < 0.2 L Glucose 173 H POC Glucose 152 H Calcium Ferritin Total Bilirubin Alkaline Phosphatase Lactate Dehydrogenase Total Creatine Kinase CK-MB (CK-2) Rel Index Troponin T C-Reactive Protein Total Protein Albumin Prealbumin LDL Cholesterol Direct HDL Cholesterol Arterial Blood Glucose 185 H Arterial Blood Ionized Calcium Urine WBC (Auto) 03/01/20 03/01/20 03/01/20 00:00 03:45 04:33 WBC 23.1 H RBC Hgb Hct MCV MCH 27 L RDW 15.3 H Plt Count Lymph % (Auto) [place] % (Auto) Lymph # (Auto) [place] # (Auto) Seg Neutrophils % Seg Neuts % (Manual) 92.0 H Lymphocytes % (Manual) 6.0 L Monocytes % (Manual) Basophils % (Manual) Seg Neutrophils # Seg Neutrophils # Man 21.3 H Lymphocytes # (Manual) Monocytes # (Manual) Eosinophils # (Manual) 0.5 H Basophils # (Manual) PT INR D-Dimer ABG pH 7.492 H POC ABG pCO2 POC ABG pO2 ABG pO2 157.1 H ABG HCO3 32.3 H ABG O2 Saturation ABG Base Excess 8.1 H ABG Hemoglobin 13.2 L ABG Oxyhemoglobin ABG Potassium ABG Glucose Oxyhemoglobin Carboxyhemoglobin Sodium Potassium Chloride Carbon Dioxide BUN Creatinine Glucose POC Glucose 109 H Calcium Ferritin Total Bilirubin Alkaline Phosphatase Lactate Dehydrogenase Total Creatine Kinase CK-MB (CK-2) Rel Index Troponin T C-Reactive Protein Total Protein Albumin Prealbumin LDL Cholesterol Direct HDL Cholesterol Arterial Blood Glucose Arterial Blood Ionized Calcium Urine WBC (Auto) 03/01/20 03/01/20 03/01/20 04:33 05:29 12:32 WBC RBC Hgb Hct MCV MCH RDW Plt Count Lymph % (Auto) [place] % (Auto) Lymph # (Auto) [place] # (Auto) Seg Neutrophils % Seg Neuts % (Manual) Lymphocytes % (Manual) Monocytes % (Manual) Basophils % (Manual) Seg Neutrophils # Seg Neutrophils # Man Lymphocytes # (Manual) Monocytes # (Manual) Eosinophils # (Manual) Basophils # (Manual) PT INR D-Dimer ABG pH POC ABG pCO2 POC ABG pO2 ABG pO2 ABG HCO3 ABG O2 Saturation ABG Base Excess ABG Hemoglobin ABG Oxyhemoglobin ABG Potassium ABG Glucose Oxyhemoglobin Carboxyhemoglobin Sodium 146 H Potassium Chloride Carbon Dioxide 32 H BUN Creatinine < 0.2 L Glucose 120 H POC Glucose 120 H 128 H Calcium Ferritin Total Bilirubin Alkaline Phosphatase Lactate Dehydrogenase Total Creatine Kinase CK-MB (CK-2) Rel Index Troponin T C-Reactive Protein Total Protein Albumin Prealbumin LDL Cholesterol Direct HDL Cholesterol Arterial Blood Glucose Arterial Blood Ionized Calcium Urine WBC (Auto) 03/01/20 03/01/20 03/02/20 17:38 23:46 06:13 WBC RBC Hgb Hct MCV MCH RDW Plt Count Lymph % (Auto) [place] % (Auto) Lymph # (Auto) [place] # (Auto) Seg Neutrophils % Seg Neuts % (Manual) Lymphocytes % (Manual) Monocytes % (Manual) Basophils % (Manual) Seg Neutrophils # Seg Neutrophils # Man Lymphocytes # (Manual) Monocytes # (Manual) Eosinophils # (Manual) Basophils # (Manual) PT INR D-Dimer ABG pH POC ABG pCO2 POC ABG pO2 ABG pO2 ABG HCO3 ABG O2 Saturation ABG Base Excess ABG Hemoglobin ABG Oxyhemoglobin ABG Potassium ABG Glucose Oxyhemoglobin Carboxyhemoglobin Sodium Potassium Chloride Carbon Dioxide BUN Creatinine Glucose POC Glucose 114 H 121 H 120 H Calcium Ferritin Total Bilirubin Alkaline Phosphatase Lactate Dehydrogenase Total Creatine Kinase CK-MB (CK-2) Rel Index Troponin T C-Reactive Protein Total Protein Albumin Prealbumin LDL Cholesterol Direct HDL Cholesterol Arterial Blood Glucose Arterial Blood Ionized Calcium Urine WBC (Auto) 03/02/20 03/02/20 03/03/20 09:47 09:47 10:21 WBC 23.6 H RBC Hgb Hct MCV MCH RDW 15.3 H Plt Count 494 H Lymph % (Auto) [place] % (Auto) Lymph # (Auto) [place] # (Auto) Seg Neutrophils % Seg Neuts % (Manual) 85.0 H Lymphocytes % (Manual) 6.0 L Monocytes % (Manual) Basophils % (Manual) Seg Neutrophils # Seg Neutrophils # Man 20.1 H Lymphocytes # (Manual) Monocytes # (Manual) 1.7 H Eosinophils # (Manual) Basophils # (Manual) PT INR D-Dimer ABG pH POC ABG pCO2 POC ABG pO2 ABG pO2 ABG HCO3 ABG O2 Saturation ABG Base Excess ABG Hemoglobin ABG Oxyhemoglobin ABG Potassium 3.3 L ABG Glucose 158 H Oxyhemoglobin Carboxyhemoglobin Sodium Potassium Chloride Carbon Dioxide BUN Creatinine < 0.2 L Glucose 177 H POC Glucose Calcium Ferritin Total Bilirubin Alkaline Phosphatase Lactate Dehydrogenase Total Creatine Kinase CK-MB (CK-2) Rel Index Troponin T C-Reactive Protein Total Protein Albumin Prealbumin LDL Cholesterol Direct HDL Cholesterol Arterial Blood Glucose 158 H Arterial Blood Ionized Calcium Urine WBC (Auto) 03/03/20 03/04/20 03/04/20 21:30 00:00 12:23 WBC RBC Hgb Hct MCV MCH RDW Plt Count Lymph % (Auto) [place] % (Auto) Lymph # (Auto) [place] # (Auto) Seg Neutrophils % Seg Neuts % (Manual) Lymphocytes % (Manual) Monocytes % (Manual) Basophils % (Manual) Seg Neutrophils # Seg Neutrophils # Man Lymphocytes # (Manual) Monocytes # (Manual) Eosinophils # (Manual) Basophils # (Manual) PT INR D-Dimer ABG pH 7.328 L POC ABG pCO2 POC ABG pO2 ABG pO2 68.4 L ABG HCO3 35.0 H ABG O2 Saturation 93.9 L ABG Base Excess 6.8 H ABG Hemoglobin 12.7 L ABG Oxyhemoglobin ABG Potassium ABG Glucose Oxyhemoglobin 91.9 L Carboxyhemoglobin Sodium Potassium Chloride Carbon Dioxide BUN Creatinine Glucose POC Glucose 187 H 163 H Calcium Ferritin Total Bilirubin Alkaline Phosphatase Lactate Dehydrogenase Total Creatine Kinase CK-MB (CK-2) Rel Index Troponin T C-Reactive Protein Total Protein Albumin Prealbumin LDL Cholesterol Direct HDL Cholesterol Arterial Blood Glucose Arterial Blood Ionized Calcium Urine WBC (Auto) 03/04/20 03/04/20 03/05/20 18:15 21:30 06:02 WBC RBC Hgb Hct MCV MCH RDW Plt Count Lymph % (Auto) [place] % (Auto) Lymph # (Auto) [place] # (Auto) Seg Neutrophils % Seg Neuts % (Manual) Lymphocytes % (Manual) Monocytes % (Manual) Basophils % (Manual) Seg Neutrophils # Seg Neutrophils # Man Lymphocytes # (Manual) Monocytes # (Manual) Eosinophils # (Manual) Basophils # (Manual) PT INR D-Dimer ABG pH 7.297 L POC ABG pCO2 POC ABG pO2 ABG pO2 ABG HCO3 41.0 H ABG O2 Saturation ABG Base Excess 11.0 H ABG Hemoglobin 13.1 L ABG Oxyhemoglobin ABG Potassium ABG Glucose Oxyhemoglobin 94.5 L Carboxyhemoglobin Sodium Potassium Chloride Carbon Dioxide BUN Creatinine Glucose POC Glucose 192 H 127 H Calcium Ferritin Total Bilirubin Alkaline Phosphatase Lactate Dehydrogenase Total Creatine Kinase CK-MB (CK-2) Rel Index Troponin T C-Reactive Protein Total Protein Albumin Prealbumin LDL Cholesterol Direct HDL Cholesterol Arterial Blood Glucose Arterial Blood Ionized Calcium Urine WBC (Auto) 03/05/20 03/05/20 03/06/20 12:09 16:42 00:24 WBC RBC Hgb Hct MCV MCH RDW Plt Count Lymph % (Auto) [place] % (Auto) Lymph # (Auto) [place] # (Auto) Seg Neutrophils % Seg Neuts % (Manual) Lymphocytes % (Manual) Monocytes % (Manual) Basophils % (Manual) Seg Neutrophils # Seg Neutrophils # Man Lymphocytes # (Manual) Monocytes # (Manual) Eosinophils # (Manual) Basophils # (Manual) PT INR D-Dimer ABG pH POC ABG pCO2 POC ABG pO2 ABG pO2 ABG HCO3 ABG O2 Saturation ABG Base Excess ABG Hemoglobin ABG Oxyhemoglobin ABG Potassium ABG Glucose Oxyhemoglobin Carboxyhemoglobin Sodium Potassium Chloride Carbon Dioxide BUN Creatinine Glucose POC Glucose 147 H 114 H 134 H Calcium Ferritin Total Bilirubin Alkaline Phosphatase Lactate Dehydrogenase Total Creatine Kinase CK-MB (CK-2) Rel Index Troponin T C-Reactive Protein Total Protein Albumin Prealbumin LDL Cholesterol Direct HDL Cholesterol Arterial Blood Glucose Arterial Blood Ionized Calcium Urine WBC (Auto) 03/06/20 03/06/20 03/06/20 04:34 05:53 06:08 WBC 25.4 H RBC Hgb 10.5 L Hct 32.7 L MCV MCH 27 L RDW 15.3 H Plt Count 634 H Lymph % (Auto) [place] % (Auto) Lymph # (Auto) [place] # (Auto) Seg Neutrophils % Seg Neuts % (Manual) 88.0 H Lymphocytes % (Manual) 2.0 L Monocytes % (Manual) 8.0 H Basophils % (Manual) Seg Neutrophils # Seg Neutrophils # Man 22.4 H Lymphocytes # (Manual) 0.5 L Monocytes # (Manual) 2.0 H Eosinophils # (Manual) Basophils # (Manual) PT INR D-Dimer ABG pH POC ABG pCO2 POC ABG pO2 ABG pO2 ABG HCO3 37.9 H ABG O2 Saturation ABG Base Excess 11.4 H ABG Hemoglobin 10.6 L ABG Oxyhemoglobin ABG Potassium ABG Glucose Oxyhemoglobin 94.7 L Carboxyhemoglobin Sodium Potassium Chloride Carbon Dioxide BUN Creatinine Glucose POC Glucose 135 H Calcium Ferritin Total Bilirubin Alkaline Phosphatase Lactate Dehydrogenase Total Creatine Kinase CK-MB (CK-2) Rel Index Troponin T C-Reactive Protein Total Protein Albumin Prealbumin LDL Cholesterol Direct HDL Cholesterol Arterial Blood Glucose Arterial Blood Ionized Calcium Urine WBC (Auto) 03/06/20 03/06/20 03/06/20 06:08 12:19 19:10 WBC RBC Hgb Hct MCV MCH RDW Plt Count Lymph % (Auto) [place] % (Auto) Lymph # (Auto) [place] # (Auto) Seg Neutrophils % Seg Neuts % (Manual) Lymphocytes % (Manual) Monocytes % (Manual) Basophils % (Manual) Seg Neutrophils # Seg Neutrophils # Man Lymphocytes # (Manual) Monocytes # (Manual) Eosinophils # (Manual) Basophils # (Manual) PT INR D-Dimer ABG pH POC ABG pCO2 POC ABG pO2 ABG pO2 ABG HCO3 ABG O2 Saturation ABG Base Excess ABG Hemoglobin ABG Oxyhemoglobin ABG Potassium ABG Glucose Oxyhemoglobin Carboxyhemoglobin Sodium 150 H D Potassium Chloride Carbon Dioxide 39 H D BUN 23 H Creatinine < 0.2 L Glucose 144 H POC Glucose 169 H 152 H Calcium Ferritin Total Bilirubin Alkaline Phosphatase Lactate Dehydrogenase Total Creatine Kinase CK-MB (CK-2) Rel Index Troponin T C-Reactive Protein Total Protein Albumin 3.3 L Prealbumin LDL Cholesterol Direct HDL Cholesterol Arterial Blood Glucose Arterial Blood Ionized Calcium Urine WBC (Auto) 03/06/20 03/07/20 03/07/20 23:58 04:25 04:25 WBC 22.1 H RBC Hgb 10.9 L Hct 32.9 L MCV MCH RDW 15.5 H Plt Count 739 H Lymph % (Auto) 7.8 L [place] % (Auto) Lymph # (Auto) [place] # (Auto) 1.3 H Seg Neutrophils % 85.5 H Seg Neuts % (Manual) Lymphocytes % (Manual) Monocytes % (Manual) Basophils % (Manual) Seg Neutrophils # 18.9 H Seg Neutrophils # Man Lymphocytes # (Manual) Monocytes # (Manual) Eosinophils # (Manual) Basophils # (Manual) PT INR D-Dimer ABG pH POC ABG pCO2 POC ABG pO2 ABG pO2 ABG HCO3 ABG O2 Saturation ABG Base Excess ABG Hemoglobin ABG Oxyhemoglobin ABG Potassium ABG Glucose Oxyhemoglobin Carboxyhemoglobin Sodium 146 H Potassium Chloride Carbon Dioxide 37 H BUN Creatinine < 0.2 L Glucose 118 H POC Glucose 111 H Calcium Ferritin Total Bilirubin Alkaline Phosphatase Lactate Dehydrogenase Total Creatine Kinase CK-MB (CK-2) Rel Index Troponin T C-Reactive Protein Total Protein Albumin 3.7 L Prealbumin LDL Cholesterol Direct HDL Cholesterol Arterial Blood Glucose Arterial Blood Ionized Calcium Urine WBC (Auto) 03/07/20 03/07/20 03/07/20 05:20 17:45 23:32 WBC RBC Hgb Hct MCV MCH RDW Plt Count Lymph % (Auto) [place] % (Auto) Lymph # (Auto) [place] # (Auto) Seg Neutrophils % Seg Neuts % (Manual) Lymphocytes % (Manual) Monocytes % (Manual) Basophils % (Manual) Seg Neutrophils # Seg Neutrophils # Man Lymphocytes # (Manual) Monocytes # (Manual) Eosinophils # (Manual) Basophils # (Manual) PT INR D-Dimer ABG pH POC ABG pCO2 POC ABG pO2 ABG pO2 ABG HCO3 ABG O2 Saturation ABG Base Excess ABG Hemoglobin ABG Oxyhemoglobin ABG Potassium ABG Glucose Oxyhemoglobin Carboxyhemoglobin Sodium Potassium Chloride Carbon Dioxide BUN Creatinine Glucose POC Glucose 113 H 124 H 210 H Calcium Ferritin Total Bilirubin Alkaline Phosphatase Lactate Dehydrogenase Total Creatine Kinase CK-MB (CK-2) Rel Index Troponin T C-Reactive Protein Total Protein Albumin Prealbumin LDL Cholesterol Direct HDL Cholesterol Arterial Blood Glucose Arterial Blood Ionized Calcium Urine WBC (Auto) 03/08/20 03/08/20 03/08/20 05:35 06:43 06:43 WBC 28.9 H RBC 3.53 L Hgb 9.7 L Hct 30.3 L MCV MCH RDW 15.6 H Plt Count 578 H Lymph % (Auto) [place] % (Auto) Lymph # (Auto) [place] # (Auto) Seg Neutrophils % Seg Neuts % (Manual) 93.0 H Lymphocytes % (Manual) 4.0 L Monocytes % (Manual) Basophils % (Manual) Seg Neutrophils # Seg Neutrophils # Man 26.9 H Lymphocytes # (Manual) Monocytes # (Manual) Eosinophils # (Manual) Basophils # (Manual) PT INR D-Dimer ABG pH POC ABG pCO2 POC ABG pO2 ABG pO2 ABG HCO3 ABG O2 Saturation ABG Base Excess ABG Hemoglobin ABG Oxyhemoglobin ABG Potassium ABG Glucose Oxyhemoglobin Carboxyhemoglobin Sodium 146 H Potassium Chloride Carbon Dioxide 35 H BUN 34 H Creatinine 0.3 L D Glucose 125 H POC Glucose 147 H Calcium Ferritin Total Bilirubin Alkaline Phosphatase Lactate Dehydrogenase Total Creatine Kinase CK-MB (CK-2) Rel Index Troponin T C-Reactive Protein Total Protein 5.9 L Albumin 3.2 L Prealbumin LDL Cholesterol Direct HDL Cholesterol Arterial Blood Glucose Arterial Blood Ionized Calcium Urine WBC (Auto) 03/08/20 03/08/20 03/08/20 08:57 11:14 12:34 WBC RBC Hgb Hct MCV MCH RDW Plt Count Lymph % (Auto) [place] % (Auto) Lymph # (Auto) [place] # (Auto) Seg Neutrophils % Seg Neuts % (Manual) Lymphocytes % (Manual) Monocytes % (Manual) Basophils % (Manual) Seg Neutrophils # Seg Neutrophils # Man Lymphocytes # (Manual) Monocytes # (Manual) Eosinophils # (Manual) Basophils # (Manual) PT INR D-Dimer ABG pH POC ABG pCO2 63.1 H POC ABG pO2 ABG pO2 ABG HCO3 ABG O2 Saturation ABG Base Excess ABG Hemoglobin 10.9 L ABG Oxyhemoglobin ABG Potassium ABG Glucose 176 H Oxyhemoglobin Carboxyhemoglobin Sodium Potassium Chloride Carbon Dioxide BUN Creatinine Glucose POC Glucose 171 H Calcium Ferritin Total Bilirubin Alkaline Phosphatase Lactate Dehydrogenase Total Creatine Kinase CK-MB (CK-2) Rel Index Troponin T C-Reactive Protein Total Protein Albumin Prealbumin LDL Cholesterol Direct HDL Cholesterol Arterial Blood Glucose 176 H Arterial Blood Ionized Calcium 4.5 L Urine WBC (Auto) 10.0 H 03/08/20 03/08/20 03/09/20 18:02 23:43 05:49 WBC RBC Hgb Hct MCV MCH RDW Plt Count Lymph % (Auto) [place] % (Auto) Lymph # (Auto) [place] # (Auto) Seg Neutrophils % Seg Neuts % (Manual) Lymphocytes % (Manual) Monocytes % (Manual) Basophils % (Manual) Seg Neutrophils # Seg Neutrophils # Man Lymphocytes # (Manual) Monocytes # (Manual) Eosinophils # (Manual) Basophils # (Manual) PT INR D-Dimer ABG pH POC ABG pCO2 POC ABG pO2 ABG pO2 ABG HCO3 ABG O2 Saturation ABG Base Excess ABG Hemoglobin ABG Oxyhemoglobin ABG Potassium ABG Glucose Oxyhemoglobin Carboxyhemoglobin Sodium Potassium Chloride Carbon Dioxide BUN Creatinine Glucose POC Glucose 157 H 134 H 163 H Calcium Ferritin Total Bilirubin Alkaline Phosphatase Lactate Dehydrogenase Total Creatine Kinase CK-MB (CK-2) Rel Index Troponin T C-Reactive Protein Total Protein Albumin Prealbumin LDL Cholesterol Direct HDL Cholesterol Arterial Blood Glucose Arterial Blood Ionized Calcium Urine WBC (Auto) 03/09/20 03/09/20 03/09/20 08:35 08:35 12:11 WBC 23.4 H RBC 3.36 L Hgb 9.3 L Hct 28.8 L MCV MCH RDW 15.9 H Plt Count 521 H Lymph % (Auto) [place] % (Auto) Lymph # (Auto) [place] # (Auto) Seg Neutrophils % Seg Neuts % (Manual) 87.0 H Lymphocytes % (Manual) 4.0 L Monocytes % (Manual) 9.0 H Basophils % (Manual) Seg Neutrophils # Seg Neutrophils # Man 20.4 H Lymphocytes # (Manual) 0.9 L Monocytes # (Manual) 2.1 H Eosinophils # (Manual) Basophils # (Manual) PT INR D-Dimer ABG pH POC ABG pCO2 POC ABG pO2 ABG pO2 ABG HCO3 ABG O2 Saturation ABG Base Excess ABG Hemoglobin ABG Oxyhemoglobin ABG Potassium ABG Glucose Oxyhemoglobin Carboxyhemoglobin Sodium 147 H Potassium Chloride Carbon Dioxide 37 H BUN 63 H Creatinine Glucose 154 H POC Glucose 128 H Calcium Ferritin Total Bilirubin Alkaline Phosphatase Lactate Dehydrogenase Total Creatine Kinase CK-MB (CK-2) Rel Index Troponin T C-Reactive Protein Total Protein Albumin Prealbumin LDL Cholesterol Direct HDL Cholesterol Arterial Blood Glucose Arterial Blood Ionized Calcium Urine WBC (Auto) 03/09/20 03/10/20 03/10/20 17:51 00:25 05:41 WBC RBC Hgb Hct MCV MCH RDW Plt Count Lymph % (Auto) [place] % (Auto) Lymph # (Auto) [place] # (Auto) Seg Neutrophils % Seg Neuts % (Manual) Lymphocytes % (Manual) Monocytes % (Manual) Basophils % (Manual) Seg Neutrophils # Seg Neutrophils # Man Lymphocytes # (Manual) Monocytes # (Manual) Eosinophils # (Manual) Basophils # (Manual) PT INR D-Dimer ABG pH POC ABG pCO2 POC ABG pO2 ABG pO2 ABG HCO3 ABG O2 Saturation ABG Base Excess ABG Hemoglobin ABG Oxyhemoglobin ABG Potassium ABG Glucose Oxyhemoglobin Carboxyhemoglobin Sodium Potassium Chloride Carbon Dioxide BUN Creatinine Glucose POC Glucose 127 H 128 H 153 H Calcium Ferritin Total Bilirubin Alkaline Phosphatase Lactate Dehydrogenase Total Creatine Kinase CK-MB (CK-2) Rel Index Troponin T C-Reactive Protein Total Protein Albumin Prealbumin LDL Cholesterol Direct HDL Cholesterol Arterial Blood Glucose Arterial Blood Ionized Calcium Urine WBC (Auto) 03/10/20 03/10/20 03/10/20 06:14 06:14 12:02 WBC 18.3 H RBC 3.45 L Hgb 9.5 L Hct 29.5 L MCV MCH RDW 16.1 H Plt Count 494 H Lymph % (Auto) [place] % (Auto) Lymph # (Auto) [place] # (Auto) Seg Neutrophils % Seg Neuts % (Manual) 95.0 H Lymphocytes % (Manual) 1.0 L Monocytes % (Manual) Basophils % (Manual) Seg Neutrophils # Seg Neutrophils # Man 17.4 H Lymphocytes # (Manual) 0.2 L Monocytes # (Manual) Eosinophils # (Manual) Basophils # (Manual) PT INR D-Dimer ABG pH POC ABG pCO2 POC ABG pO2 ABG pO2 ABG HCO3 ABG O2 Saturation ABG Base Excess ABG Hemoglobin ABG Oxyhemoglobin ABG Potassium ABG Glucose Oxyhemoglobin Carboxyhemoglobin Sodium 149 H Potassium Chloride Carbon Dioxide 35 H BUN 34 H Creatinine 0.2 L D Glucose 177 H POC Glucose 151 H Calcium Ferritin Total Bilirubin Alkaline Phosphatase Lactate Dehydrogenase Total Creatine Kinase CK-MB (CK-2) Rel Index Troponin T C-Reactive Protein Total Protein Albumin Prealbumin LDL Cholesterol Direct HDL Cholesterol Arterial Blood Glucose Arterial Blood Ionized Calcium Urine WBC (Auto) 03/10/20 03/10/20 03/11/20 17:41 23:53 05:02 WBC RBC Hgb Hct MCV MCH RDW Plt Count Lymph % (Auto) [place] % (Auto) Lymph # (Auto) [place] # (Auto) Seg Neutrophils % Seg Neuts % (Manual) Lymphocytes % (Manual) Monocytes % (Manual) Basophils % (Manual) Seg Neutrophils # Seg Neutrophils # Man Lymphocytes # (Manual) Monocytes # (Manual) Eosinophils # (Manual) Basophils # (Manual) PT INR D-Dimer ABG pH POC ABG pCO2 POC ABG pO2 ABG pO2 ABG HCO3 ABG O2 Saturation ABG Base Excess ABG Hemoglobin ABG Oxyhemoglobin ABG Potassium ABG Glucose Oxyhemoglobin Carboxyhemoglobin Sodium Potassium Chloride Carbon Dioxide BUN Creatinine Glucose POC Glucose 168 H 142 H 146 H Calcium Ferritin Total Bilirubin Alkaline Phosphatase Lactate Dehydrogenase Total Creatine Kinase CK-MB (CK-2) Rel Index Troponin T C-Reactive Protein Total Protein Albumin Prealbumin LDL Cholesterol Direct HDL Cholesterol Arterial Blood Glucose Arterial Blood Ionized Calcium Urine WBC (Auto) 03/11/20 03/11/20 03/11/20 11:30 14:01 14:01 WBC 19.7 H RBC 3.04 L Hgb 8.7 L Hct 25.8 L MCV MCH RDW 15.6 H Plt Count Lymph % (Auto) [place] % (Auto) Lymph # (Auto) [place] # (Auto) Seg Neutrophils % Seg Neuts % (Manual) Lymphocytes % (Manual) Monocytes % (Manual) Basophils % (Manual) Seg Neutrophils # Seg Neutrophils # Man Lymphocytes # (Manual) Monocytes # (Manual) Eosinophils # (Manual) Basophils # (Manual) PT INR D-Dimer ABG pH POC ABG pCO2 POC ABG pO2 ABG pO2 ABG HCO3 ABG O2 Saturation ABG Base Excess ABG Hemoglobin ABG Oxyhemoglobin ABG Potassium ABG Glucose Oxyhemoglobin Carboxyhemoglobin Sodium 151 H Potassium Chloride Carbon Dioxide 37 H BUN Creatinine < 0.2 L Glucose 171 H POC Glucose 248 H Calcium Ferritin Total Bilirubin Alkaline Phosphatase Lactate Dehydrogenase Total Creatine Kinase CK-MB (CK-2) Rel Index Troponin T C-Reactive Protein Total Protein Albumin Prealbumin LDL Cholesterol Direct HDL Cholesterol Arterial Blood Glucose Arterial Blood Ionized Calcium Urine WBC (Auto) 03/11/20 03/11/20 03/12/20 17:09 23:52 04:39 WBC 19.9 H RBC 3.16 L Hgb 8.9 L Hct 27.5 L MCV MCH RDW 15.7 H Plt Count Lymph % (Auto) 6.8 L [place] % (Auto) Lymph # (Auto) [place] # (Auto) 1.2 H Seg Neutrophils % 86.0 H Seg Neuts % (Manual) Lymphocytes % (Manual) Monocytes % (Manual) Basophils % (Manual) Seg Neutrophils # 17.1 H Seg Neutrophils # Man Lymphocytes # (Manual) Monocytes # (Manual) Eosinophils # (Manual) Basophils # (Manual) PT INR D-Dimer ABG pH POC ABG pCO2 POC ABG pO2 ABG pO2 ABG HCO3 ABG O2 Saturation ABG Base Excess ABG Hemoglobin ABG Oxyhemoglobin ABG Potassium ABG Glucose Oxyhemoglobin Carboxyhemoglobin Sodium Potassium Chloride Carbon Dioxide BUN Creatinine Glucose POC Glucose 124 H 131 H Calcium Ferritin Total Bilirubin Alkaline Phosphatase Lactate Dehydrogenase Total Creatine Kinase CK-MB (CK-2) Rel Index Troponin T C-Reactive Protein Total Protein Albumin Prealbumin LDL Cholesterol Direct HDL Cholesterol Arterial Blood Glucose Arterial Blood Ionized Calcium Urine WBC (Auto) 03/12/20 03/12/20 03/12/20 04:39 05:28 11:34 WBC RBC Hgb Hct MCV MCH RDW Plt Count Lymph % (Auto) [place] % (Auto) Lymph # (Auto) [place] # (Auto) Seg Neutrophils % Seg Neuts % (Manual) Lymphocytes % (Manual) Monocytes % (Manual) Basophils % (Manual) Seg Neutrophils # Seg Neutrophils # Man Lymphocytes # (Manual) Monocytes # (Manual) Eosinophils # (Manual) Basophils # (Manual) PT INR D-Dimer ABG pH POC ABG pCO2 POC ABG pO2 ABG pO2 ABG HCO3 ABG O2 Saturation ABG Base Excess ABG Hemoglobin ABG Oxyhemoglobin ABG Potassium ABG Glucose Oxyhemoglobin Carboxyhemoglobin Sodium 147 H Potassium Chloride Carbon Dioxide 40 H BUN Creatinine < 0.2 L Glucose 175 H POC Glucose 167 H 144 H Calcium Ferritin Total Bilirubin Alkaline Phosphatase Lactate Dehydrogenase Total Creatine Kinase CK-MB (CK-2) Rel Index Troponin T C-Reactive Protein Total Protein Albumin Prealbumin LDL Cholesterol Direct HDL Cholesterol Arterial Blood Glucose Arterial Blood Ionized Calcium Urine WBC (Auto) 03/12/20 03/12/20 03/13/20 17:32 23:57 05:57 WBC RBC Hgb Hct MCV MCH RDW Plt Count Lymph % (Auto) [place] % (Auto) Lymph # (Auto) [place] # (Auto) Seg Neutrophils % Seg Neuts % (Manual) Lymphocytes % (Manual) Monocytes % (Manual) Basophils % (Manual) Seg Neutrophils # Seg Neutrophils # Man Lymphocytes # (Manual) Monocytes # (Manual) Eosinophils # (Manual) Basophils # (Manual) PT INR D-Dimer ABG pH POC ABG pCO2 POC ABG pO2 ABG pO2 ABG HCO3 ABG O2 Saturation ABG Base Excess ABG Hemoglobin ABG Oxyhemoglobin ABG Potassium ABG Glucose Oxyhemoglobin Carboxyhemoglobin Sodium Potassium Chloride Carbon Dioxide BUN Creatinine Glucose POC Glucose 141 H 137 H 161 H Calcium Ferritin Total Bilirubin Alkaline Phosphatase Lactate Dehydrogenase Total Creatine Kinase CK-MB (CK-2) Rel Index Troponin T C-Reactive Protein Total Protein Albumin Prealbumin LDL Cholesterol Direct HDL Cholesterol Arterial Blood Glucose Arterial Blood Ionized Calcium Urine WBC (Auto) 03/13/20 03/13/20 03/13/20 12:28 14:14 18:39 WBC RBC Hgb Hct MCV MCH RDW Plt Count Lymph % (Auto) [place] % (Auto) Lymph # (Auto) [place] # (Auto) Seg Neutrophils % Seg Neuts % (Manual) Lymphocytes % (Manual) Monocytes % (Manual) Basophils % (Manual) Seg Neutrophils # Seg Neutrophils # Man Lymphocytes # (Manual) Monocytes # (Manual) Eosinophils # (Manual) Basophils # (Manual) PT INR D-Dimer ABG pH POC ABG pCO2 POC ABG pO2 ABG pO2 ABG HCO3 ABG O2 Saturation ABG Base Excess ABG Hemoglobin ABG Oxyhemoglobin ABG Potassium ABG Glucose Oxyhemoglobin Carboxyhemoglobin Sodium Potassium Chloride Carbon Dioxide 39 H BUN Creatinine < 0.2 L Glucose 129 H POC Glucose 130 H 125 H Calcium Ferritin Total Bilirubin Alkaline Phosphatase Lactate Dehydrogenase Total Creatine Kinase CK-MB (CK-2) Rel Index Troponin T C-Reactive Protein Total Protein Albumin Prealbumin LDL Cholesterol Direct HDL Cholesterol Arterial Blood Glucose Arterial Blood Ionized Calcium Urine WBC (Auto) 03/13/20 03/14/20 03/14/20 23:33 05:24 08:07 WBC 16.8 H RBC 2.81 L Hgb 7.9 L Hct 23.9 L MCV MCH RDW 15.9 H Plt Count Lymph % (Auto) [place] % (Auto) Lymph # (Auto) [place] # (Auto) Seg Neutrophils % Seg Neuts % (Manual) 84.0 H Lymphocytes % (Manual) 10.0 L Monocytes % (Manual) Basophils % (Manual) Seg Neutrophils # Seg Neutrophils # Man 14.1 H Lymphocytes # (Manual) Monocytes # (Manual) Eosinophils # (Manual) Basophils # (Manual) PT INR D-Dimer ABG pH POC ABG pCO2 POC ABG pO2 ABG pO2 ABG HCO3 ABG O2 Saturation ABG Base Excess ABG Hemoglobin ABG Oxyhemoglobin ABG Potassium ABG Glucose Oxyhemoglobin Carboxyhemoglobin Sodium Potassium Chloride Carbon Dioxide BUN Creatinine Glucose POC Glucose 146 H 125 H Calcium Ferritin Total Bilirubin Alkaline Phosphatase Lactate Dehydrogenase Total Creatine Kinase CK-MB (CK-2) Rel Index Troponin T C-Reactive Protein Total Protein Albumin Prealbumin LDL Cholesterol Direct HDL Cholesterol Arterial Blood Glucose Arterial Blood Ionized Calcium Urine WBC (Auto) 03/14/20 03/14/20 03/14/20 08:07 12:21 18:26 WBC RBC Hgb Hct MCV MCH RDW Plt Count Lymph % (Auto) [place] % (Auto) Lymph # (Auto) [place] # (Auto) Seg Neutrophils % Seg Neuts % (Manual) Lymphocytes % (Manual) Monocytes % (Manual) Basophils % (Manual) Seg Neutrophils # Seg Neutrophils # Man Lymphocytes # (Manual) Monocytes # (Manual) Eosinophils # (Manual) Basophils # (Manual) PT INR D-Dimer ABG pH POC ABG pCO2 POC ABG pO2 ABG pO2 ABG HCO3 ABG O2 Saturation ABG Base Excess ABG Hemoglobin ABG Oxyhemoglobin ABG Potassium ABG Glucose Oxyhemoglobin Carboxyhemoglobin Sodium Potassium Chloride 97.0 L Carbon Dioxide 37 H BUN Creatinine < 0.2 L Glucose 129 H POC Glucose 109 H 142 H Calcium 8.3 L Ferritin Total Bilirubin Alkaline Phosphatase Lactate Dehydrogenase Total Creatine Kinase CK-MB (CK-2) Rel Index Troponin T C-Reactive Protein Total Protein Albumin Prealbumin LDL Cholesterol Direct HDL Cholesterol Arterial Blood Glucose Arterial Blood Ionized Calcium Urine WBC (Auto) 03/14/20 03/15/20 03/15/20 23:57 05:46 08:06 WBC 19.7 H RBC 3.29 L Hgb 9.1 L Hct 28.0 L MCV MCH RDW 15.9 H Plt Count Lymph % (Auto) [place] % (Auto) Lymph # (Auto) [place] # (Auto) Seg Neutrophils % Seg Neuts % (Manual) Lymphocytes % (Manual) Monocytes % (Manual) Basophils % (Manual) Seg Neutrophils # Seg Neutrophils # Man Lymphocytes # (Manual) Monocytes # (Manual) Eosinophils # (Manual) Basophils # (Manual) PT INR D-Dimer ABG pH POC ABG pCO2 POC ABG pO2 ABG pO2 ABG HCO3 ABG O2 Saturation ABG Base Excess ABG Hemoglobin ABG Oxyhemoglobin ABG Potassium ABG Glucose Oxyhemoglobin Carboxyhemoglobin Sodium Potassium Chloride Carbon Dioxide BUN Creatinine Glucose POC Glucose 157 H 118 H Calcium Ferritin Total Bilirubin Alkaline Phosphatase Lactate Dehydrogenase Total Creatine Kinase CK-MB (CK-2) Rel Index Troponin T C-Reactive Protein Total Protein Albumin Prealbumin LDL Cholesterol Direct HDL Cholesterol Arterial Blood Glucose Arterial Blood Ionized Calcium Urine WBC (Auto) 03/15/20 03/15/20 03/15/20 08:06 12:44 18:09 WBC RBC Hgb Hct MCV MCH RDW Plt Count Lymph % (Auto) [place] % (Auto) Lymph # (Auto) [place] # (Auto) Seg Neutrophils % Seg Neuts % (Manual) Lymphocytes % (Manual) Monocytes % (Manual) Basophils % (Manual) Seg Neutrophils # Seg Neutrophils # Man Lymphocytes # (Manual) Monocytes # (Manual) Eosinophils # (Manual) Basophils # (Manual) PT INR D-Dimer ABG pH POC ABG pCO2 POC ABG pO2 ABG pO2 ABG HCO3 ABG O2 Saturation ABG Base Excess ABG Hemoglobin ABG Oxyhemoglobin ABG Potassium ABG Glucose Oxyhemoglobin Carboxyhemoglobin Sodium 136 L Potassium Chloride 93.6 L Carbon Dioxide 37 H BUN Creatinine < 0.2 L Glucose 132 H POC Glucose 151 H 164 H Calcium Ferritin Total Bilirubin Alkaline Phosphatase Lactate Dehydrogenase Total Creatine Kinase CK-MB (CK-2) Rel Index Troponin T C-Reactive Protein Total Protein Albumin Prealbumin LDL Cholesterol Direct HDL Cholesterol Arterial Blood Glucose Arterial Blood Ionized Calcium Urine WBC (Auto) 03/15/20 03/16/20 03/16/20 23:26 05:39 11:58 WBC RBC Hgb Hct MCV MCH RDW Plt Count Lymph % (Auto) [place] % (Auto) Lymph # (Auto) [place] # (Auto) Seg Neutrophils % Seg Neuts % (Manual) Lymphocytes % (Manual) Monocytes % (Manual) Basophils % (Manual) Seg Neutrophils # Seg Neutrophils # Man Lymphocytes # (Manual) Monocytes # (Manual) Eosinophils # (Manual) Basophils # (Manual) PT INR D-Dimer ABG pH POC ABG pCO2 POC ABG pO2 ABG pO2 ABG HCO3 ABG O2 Saturation ABG Base Excess ABG Hemoglobin ABG Oxyhemoglobin ABG Potassium ABG Glucose Oxyhemoglobin Carboxyhemoglobin Sodium Potassium Chloride Carbon Dioxide BUN Creatinine Glucose POC Glucose 136 H 116 H 109 H Calcium Ferritin Total Bilirubin Alkaline Phosphatase Lactate Dehydrogenase Total Creatine Kinase CK-MB (CK-2) Rel Index Troponin T C-Reactive Protein Total Protein Albumin Prealbumin LDL Cholesterol Direct HDL Cholesterol Arterial Blood Glucose Arterial Blood Ionized Calcium Urine WBC (Auto) 03/16/20 03/17/20 03/17/20 23:56 04:40 04:40 WBC 18.0 H RBC 3.33 L Hgb 9.5 L Hct 28.8 L MCV MCH RDW 16.4 H Plt Count 499 H Lymph % (Auto) [place] % (Auto) Lymph # (Auto) [place] # (Auto) Seg Neutrophils % Seg Neuts % (Manual) 82.0 H Lymphocytes % (Manual) 8.0 L Monocytes % (Manual) Basophils % (Manual) Seg Neutrophils # Seg Neutrophils # Man 14.8 H Lymphocytes # (Manual) Monocytes # (Manual) 1.3 H Eosinophils # (Manual) Basophils # (Manual) 0.2 H PT INR D-Dimer ABG pH POC ABG pCO2 POC ABG pO2 ABG pO2 ABG HCO3 ABG O2 Saturation ABG Base Excess ABG Hemoglobin ABG Oxyhemoglobin ABG Potassium ABG Glucose Oxyhemoglobin Carboxyhemoglobin Sodium Potassium Chloride 97.7 L Carbon Dioxide 32 H BUN Creatinine < 0.2 L Glucose 114 H POC Glucose 131 H Calcium Ferritin Total Bilirubin Alkaline Phosphatase Lactate Dehydrogenase Total Creatine Kinase CK-MB (CK-2) Rel Index Troponin T C-Reactive Protein Total Protein Albumin Prealbumin LDL Cholesterol Direct HDL Cholesterol Arterial Blood Glucose Arterial Blood Ionized Calcium Urine WBC (Auto) 03/18/20 03/18/20 03/18/20 00:21 05:21 11:55 WBC RBC Hgb Hct MCV MCH RDW Plt Count Lymph % (Auto) [place] % (Auto) Lymph # (Auto) [place] # (Auto) Seg Neutrophils % Seg Neuts % (Manual) Lymphocytes % (Manual) Monocytes % (Manual) Basophils % (Manual) Seg Neutrophils # Seg Neutrophils # Man Lymphocytes # (Manual) Monocytes # (Manual) Eosinophils # (Manual) Basophils # (Manual) PT INR D-Dimer ABG pH POC ABG pCO2 POC ABG pO2 ABG pO2 ABG HCO3 ABG O2 Saturation ABG Base Excess ABG Hemoglobin ABG Oxyhemoglobin ABG Potassium ABG Glucose Oxyhemoglobin Carboxyhemoglobin Sodium Potassium Chloride Carbon Dioxide BUN Creatinine Glucose POC Glucose 124 H 138 H 119 H Calcium Ferritin Total Bilirubin Alkaline Phosphatase Lactate Dehydrogenase Total Creatine Kinase CK-MB (CK-2) Rel Index Troponin T C-Reactive Protein Total Protein Albumin Prealbumin LDL Cholesterol Direct HDL Cholesterol Arterial Blood Glucose Arterial Blood Ionized Calcium Urine WBC (Auto) 03/18/20 03/18/20 03/19/20 17:03 23:58 05:24 WBC RBC Hgb Hct MCV MCH RDW Plt Count Lymph % (Auto) [place] % (Auto) Lymph # (Auto) [place] # (Auto) Seg Neutrophils % Seg Neuts % (Manual) Lymphocytes % (Manual) Monocytes % (Manual) Basophils % (Manual) Seg Neutrophils # Seg Neutrophils # Man Lymphocytes # (Manual) Monocytes # (Manual) Eosinophils # (Manual) Basophils # (Manual) PT INR D-Dimer ABG pH POC ABG pCO2 POC ABG pO2 ABG pO2 ABG HCO3 ABG O2 Saturation ABG Base Excess ABG Hemoglobin ABG Oxyhemoglobin ABG Potassium ABG Glucose Oxyhemoglobin Carboxyhemoglobin Sodium Potassium Chloride Carbon Dioxide BUN Creatinine Glucose POC Glucose 128 H 128 H 115 H Calcium Ferritin Total Bilirubin Alkaline Phosphatase Lactate Dehydrogenase Total Creatine Kinase CK-MB (CK-2) Rel Index Troponin T C-Reactive Protein Total Protein Albumin Prealbumin LDL Cholesterol Direct HDL Cholesterol Arterial Blood Glucose Arterial Blood Ionized Calcium Urine WBC (Auto) 03/19/20 03/19/20 03/19/20 08:05 08:05 11:56 WBC 16.8 H RBC 3.36 L Hgb 9.4 L Hct 28.8 L MCV MCH RDW 17.4 H Plt Count 567 H Lymph % (Auto) 7.8 L [place] % (Auto) Lymph # (Auto) [place] # (Auto) 1.2 H Seg Neutrophils % 83.5 H Seg Neuts % (Manual) Lymphocytes % (Manual) Monocytes % (Manual) Basophils % (Manual) Seg Neutrophils # 14.1 H Seg Neutrophils # Man Lymphocytes # (Manual) Monocytes # (Manual) Eosinophils # (Manual) Basophils # (Manual) PT INR D-Dimer ABG pH POC ABG pCO2 POC ABG pO2 ABG pO2 ABG HCO3 ABG O2 Saturation ABG Base Excess ABG Hemoglobin ABG Oxyhemoglobin ABG Potassium ABG Glucose Oxyhemoglobin Carboxyhemoglobin Sodium Potassium Chloride Carbon Dioxide 36 H BUN Creatinine < 0.2 L Glucose 135 H POC Glucose 128 H Calcium Ferritin Total Bilirubin Alkaline Phosphatase Lactate Dehydrogenase Total Creatine Kinase CK-MB (CK-2) Rel Index Troponin T C-Reactive Protein Total Protein Albumin Prealbumin LDL Cholesterol Direct HDL Cholesterol Arterial Blood Glucose Arterial Blood Ionized Calcium Urine WBC (Auto) 03/19/20 03/20/20 03/20/20 23:59 05:12 16:52 WBC RBC Hgb Hct MCV MCH RDW Plt Count Lymph % (Auto) [place] % (Auto) Lymph # (Auto) [place] # (Auto) Seg Neutrophils % Seg Neuts % (Manual) Lymphocytes % (Manual) Monocytes % (Manual) Basophils % (Manual) Seg Neutrophils # Seg Neutrophils # Man Lymphocytes # (Manual) Monocytes # (Manual) Eosinophils # (Manual) Basophils # (Manual) PT INR D-Dimer ABG pH POC ABG pCO2 POC ABG pO2 ABG pO2 ABG HCO3 ABG O2 Saturation ABG Base Excess ABG Hemoglobin ABG Oxyhemoglobin ABG Potassium ABG Glucose Oxyhemoglobin Carboxyhemoglobin Sodium Potassium Chloride Carbon Dioxide BUN Creatinine Glucose POC Glucose 120 H 131 H 124 H Calcium Ferritin Total Bilirubin Alkaline Phosphatase Lactate Dehydrogenase Total Creatine Kinase CK-MB (CK-2) Rel Index Troponin T C-Reactive Protein Total Protein Albumin Prealbumin LDL Cholesterol Direct HDL Cholesterol Arterial Blood Glucose Arterial Blood Ionized Calcium Urine WBC (Auto) 03/20/20 03/21/20 03/21/20 23:35 04:50 07:35 WBC 15.2 H RBC 3.39 L Hgb 9.4 L Hct 29.4 L MCV MCH RDW 17.6 H Plt Count 518 H Lymph % (Auto) [place] % (Auto) Lymph # (Auto) [place] # (Auto) Seg Neutrophils % Seg Neuts % (Manual) 83.0 H Lymphocytes % (Manual) 10.0 L Monocytes % (Manual) Basophils % (Manual) 2.0 H Seg Neutrophils # Seg Neutrophils # Man 12.6 H Lymphocytes # (Manual) Monocytes # (Manual) Eosinophils # (Manual) Basophils # (Manual) 0.3 H PT INR D-Dimer ABG pH POC ABG pCO2 POC ABG pO2 ABG pO2 ABG HCO3 ABG O2 Saturation ABG Base Excess ABG Hemoglobin ABG Oxyhemoglobin ABG Potassium ABG Glucose Oxyhemoglobin Carboxyhemoglobin Sodium Potassium Chloride Carbon Dioxide BUN Creatinine Glucose POC Glucose 125 H 127 H Calcium Ferritin Total Bilirubin Alkaline Phosphatase Lactate Dehydrogenase Total Creatine Kinase CK-MB (CK-2) Rel Index Troponin T C-Reactive Protein Total Protein Albumin Prealbumin LDL Cholesterol Direct HDL Cholesterol Arterial Blood Glucose Arterial Blood Ionized Calcium Urine WBC (Auto) 03/21/20 03/21/20 03/21/20 07:35 11:45 17:22 WBC RBC Hgb Hct MCV MCH RDW Plt Count Lymph % (Auto) [place] % (Auto) Lymph # (Auto) [place] # (Auto) Seg Neutrophils % Seg Neuts % (Manual) Lymphocytes % (Manual) Monocytes % (Manual) Basophils % (Manual) Seg Neutrophils # Seg Neutrophils # Man Lymphocytes # (Manual) Monocytes # (Manual) Eosinophils # (Manual) Basophils # (Manual) PT INR D-Dimer ABG pH POC ABG pCO2 POC ABG pO2 ABG pO2 ABG HCO3 ABG O2 Saturation ABG Base Excess ABG Hemoglobin ABG Oxyhemoglobin ABG Potassium ABG Glucose Oxyhemoglobin Carboxyhemoglobin Sodium 136 L Potassium Chloride 97.7 L Carbon Dioxide 32 H BUN Creatinine < 0.2 L Glucose 103 H POC Glucose 126 H 120 H Calcium Ferritin Total Bilirubin Alkaline Phosphatase Lactate Dehydrogenase Total Creatine Kinase CK-MB (CK-2) Rel Index Troponin T C-Reactive Protein Total Protein Albumin Prealbumin LDL Cholesterol Direct HDL Cholesterol Arterial Blood Glucose Arterial Blood Ionized Calcium Urine WBC (Auto) 03/22/20 03/22/20 03/22/20 05:09 06:34 06:34 WBC 17.5 H RBC 3.52 L Hgb 10.0 L Hct 30.7 L MCV MCH RDW 17.5 H Plt Count 499 H Lymph % (Auto) [place] % (Auto) Lymph # (Auto) [place] # (Auto) Seg Neutrophils % Seg Neuts % (Manual) 80.0 H Lymphocytes % (Manual) 10.0 L Monocytes % (Manual) Basophils % (Manual) Seg Neutrophils # Seg Neutrophils # Man 14.0 H Lymphocytes # (Manual) Monocytes # (Manual) Eosinophils # (Manual) Basophils # (Manual) PT INR D-Dimer ABG pH POC ABG pCO2 POC ABG pO2 ABG pO2 ABG HCO3 ABG O2 Saturation ABG Base Excess ABG Hemoglobin ABG Oxyhemoglobin ABG Potassium ABG Glucose Oxyhemoglobin Carboxyhemoglobin Sodium Potassium Chloride 96.6 L Carbon Dioxide 38 H BUN Creatinine < 0.2 L Glucose 139 H POC Glucose 125 H Calcium Ferritin Total Bilirubin Alkaline Phosphatase Lactate Dehydrogenase Total Creatine Kinase CK-MB (CK-2) Rel Index Troponin T C-Reactive Protein Total Protein Albumin Prealbumin LDL Cholesterol Direct HDL Cholesterol Arterial Blood Glucose Arterial Blood Ionized Calcium Urine WBC (Auto) 03/22/20 03/22/20 03/22/20 11:45 18:00 23:32 WBC RBC Hgb Hct MCV MCH RDW Plt Count Lymph % (Auto) [place] % (Auto) Lymph # (Auto) [place] # (Auto) Seg Neutrophils % Seg Neuts % (Manual) Lymphocytes % (Manual) Monocytes % (Manual) Basophils % (Manual) Seg Neutrophils # Seg Neutrophils # Man Lymphocytes # (Manual) Monocytes # (Manual) Eosinophils # (Manual) Basophils # (Manual) PT INR D-Dimer ABG pH POC ABG pCO2 POC ABG pO2 ABG pO2 ABG HCO3 ABG O2 Saturation ABG Base Excess ABG Hemoglobin ABG Oxyhemoglobin ABG Potassium ABG Glucose Oxyhemoglobin Carboxyhemoglobin Sodium Potassium Chloride Carbon Dioxide BUN Creatinine Glucose POC Glucose 135 H 133 H Calcium Ferritin Total Bilirubin Alkaline Phosphatase Lactate Dehydrogenase Total Creatine Kinase CK-MB (CK-2) Rel Index Troponin T 0.113 H* C-Reactive Protein Total Protein Albumin Prealbumin LDL Cholesterol Direct HDL Cholesterol Arterial Blood Glucose Arterial Blood Ionized Calcium Urine WBC (Auto) 03/23/20 03/23/20 03/23/20 01:47 06:21 07:57 WBC RBC Hgb Hct MCV MCH RDW Plt Count Lymph % (Auto) [place] % (Auto) Lymph # (Auto) [place] # (Auto) Seg Neutrophils % Seg Neuts % (Manual) Lymphocytes % (Manual) Monocytes % (Manual) Basophils % (Manual) Seg Neutrophils # Seg Neutrophils # Man Lymphocytes # (Manual) Monocytes # (Manual) Eosinophils # (Manual) Basophils # (Manual) PT INR D-Dimer ABG pH POC ABG pCO2 POC ABG pO2 ABG pO2 ABG HCO3 ABG O2 Saturation ABG Base Excess ABG Hemoglobin ABG Oxyhemoglobin ABG Potassium ABG Glucose Oxyhemoglobin Carboxyhemoglobin Sodium Potassium Chloride Carbon Dioxide BUN Creatinine Glucose POC Glucose 130 H Calcium Ferritin Total Bilirubin Alkaline Phosphatase Lactate Dehydrogenase Total Creatine Kinase CK-MB (CK-2) Rel Index Troponin T 0.143 H* D 0.105 H* D C-Reactive Protein Total Protein Albumin Prealbumin LDL Cholesterol Direct HDL Cholesterol Arterial Blood Glucose Arterial Blood Ionized Calcium Urine WBC (Auto) 03/23/20 03/24/20 03/24/20 12:02 05:33 07:15 WBC 18.0 H RBC Hgb 11.0 L Hct 34.0 L MCV MCH RDW 17.4 H Plt Count 520 H Lymph % (Auto) [place] % (Auto) Lymph # (Auto) [place] # (Auto) Seg Neutrophils % Seg Neuts % (Manual) 88.0 H Lymphocytes % (Manual) 7.0 L Monocytes % (Manual) Basophils % (Manual) Seg Neutrophils # Seg Neutrophils # Man 15.8 H Lymphocytes # (Manual) Monocytes # (Manual) Eosinophils # (Manual) Basophils # (Manual) PT INR D-Dimer ABG pH POC ABG pCO2 POC ABG pO2 ABG pO2 ABG HCO3 ABG O2 Saturation ABG Base Excess ABG Hemoglobin ABG Oxyhemoglobin ABG Potassium ABG Glucose Oxyhemoglobin Carboxyhemoglobin Sodium Potassium Chloride Carbon Dioxide BUN Creatinine Glucose POC Glucose 137 H 112 H Calcium Ferritin Total Bilirubin Alkaline Phosphatase Lactate Dehydrogenase Total Creatine Kinase CK-MB (CK-2) Rel Index Troponin T C-Reactive Protein Total Protein Albumin Prealbumin LDL Cholesterol Direct HDL Cholesterol Arterial Blood Glucose Arterial Blood Ionized Calcium Urine WBC (Auto) 03/24/20 03/24/20 03/24/20 07:15 11:22 23:30 WBC RBC Hgb Hct MCV MCH RDW Plt Count Lymph % (Auto) [place] % (Auto) Lymph # (Auto) [place] # (Auto) Seg Neutrophils % Seg Neuts % (Manual) Lymphocytes % (Manual) Monocytes % (Manual) Basophils % (Manual) Seg Neutrophils # Seg Neutrophils # Man Lymphocytes # (Manual) Monocytes # (Manual) Eosinophils # (Manual) Basophils # (Manual) PT INR D-Dimer ABG pH POC ABG pCO2 POC ABG pO2 ABG pO2 ABG HCO3 ABG O2 Saturation ABG Base Excess ABG Hemoglobin ABG Oxyhemoglobin ABG Potassium ABG Glucose Oxyhemoglobin Carboxyhemoglobin Sodium Potassium Chloride 96.6 L Carbon Dioxide 38 H BUN Creatinine < 0.2 L Glucose 141 H POC Glucose 130 H 120 H Calcium Ferritin Total Bilirubin Alkaline Phosphatase Lactate Dehydrogenase Total Creatine Kinase CK-MB (CK-2) Rel Index Troponin T C-Reactive Protein Total Protein Albumin Prealbumin LDL Cholesterol Direct HDL Cholesterol Arterial Blood Glucose Arterial Blood Ionized Calcium Urine WBC (Auto) 03/25/20 03/25/20 03/25/20 05:48 17:53 23:18 WBC RBC Hgb Hct MCV MCH RDW Plt Count Lymph % (Auto) [place] % (Auto) Lymph # (Auto) [place] # (Auto) Seg Neutrophils % Seg Neuts % (Manual) Lymphocytes % (Manual) Monocytes % (Manual) Basophils % (Manual) Seg Neutrophils # Seg Neutrophils # Man Lymphocytes # (Manual) Monocytes # (Manual) Eosinophils # (Manual) Basophils # (Manual) PT INR D-Dimer ABG pH POC ABG pCO2 POC ABG pO2 ABG pO2 ABG HCO3 ABG O2 Saturation ABG Base Excess ABG Hemoglobin ABG Oxyhemoglobin ABG Potassium ABG Glucose Oxyhemoglobin Carboxyhemoglobin Sodium Potassium Chloride Carbon Dioxide BUN Creatinine Glucose POC Glucose 124 H 109 H 131 H Calcium Ferritin Total Bilirubin Alkaline Phosphatase Lactate Dehydrogenase Total Creatine Kinase CK-MB (CK-2) Rel Index Troponin T C-Reactive Protein Total Protein Albumin Prealbumin LDL Cholesterol Direct HDL Cholesterol Arterial Blood Glucose Arterial Blood Ionized Calcium Urine WBC (Auto) 03/26/20 03/26/20 03/26/20 05:21 08:49 08:49 WBC 19.7 H RBC Hgb 10.7 L Hct 33.5 L MCV MCH 27 L RDW 17.1 H Plt Count 480 H Lymph % (Auto) 5.7 L [place] % (Auto) Lymph # (Auto) 1.1 L [place] # (Auto) 1.2 H Seg Neutrophils % 87.7 H Seg Neuts % (Manual) Lymphocytes % (Manual) Monocytes % (Manual) Basophils % (Manual) Seg Neutrophils # 17.2 H Seg Neutrophils # Man Lymphocytes # (Manual) Monocytes # (Manual) Eosinophils # (Manual) Basophils # (Manual) PT INR D-Dimer ABG pH POC ABG pCO2 POC ABG pO2 ABG pO2 ABG HCO3 ABG O2 Saturation ABG Base Excess ABG Hemoglobin ABG Oxyhemoglobin ABG Potassium ABG Glucose Oxyhemoglobin Carboxyhemoglobin Sodium Potassium Chloride 97.2 L Carbon Dioxide 36 H BUN Creatinine < 0.2 L Glucose 127 H POC Glucose 116 H Calcium Ferritin Total Bilirubin Alkaline Phosphatase Lactate Dehydrogenase Total Creatine Kinase CK-MB (CK-2) Rel Index Troponin T C-Reactive Protein Total Protein Albumin Prealbumin LDL Cholesterol Direct HDL Cholesterol Arterial Blood Glucose Arterial Blood Ionized Calcium Urine WBC (Auto) 03/26/20 03/26/20 03/26/20 11:38 18:44 23:06 WBC RBC Hgb Hct MCV MCH RDW Plt Count Lymph % (Auto) [place] % (Auto) Lymph # (Auto) [place] # (Auto) Seg Neutrophils % Seg Neuts % (Manual) Lymphocytes % (Manual) Monocytes % (Manual) Basophils % (Manual) Seg Neutrophils # Seg Neutrophils # Man Lymphocytes # (Manual) Monocytes # (Manual) Eosinophils # (Manual) Basophils # (Manual) PT INR D-Dimer ABG pH POC ABG pCO2 POC ABG pO2 ABG pO2 ABG HCO3 ABG O2 Saturation ABG Base Excess ABG Hemoglobin ABG Oxyhemoglobin ABG Potassium ABG Glucose Oxyhemoglobin Carboxyhemoglobin Sodium Potassium Chloride Carbon Dioxide BUN Creatinine Glucose POC Glucose 120 H 111 H 134 H Calcium Ferritin Total Bilirubin Alkaline Phosphatase Lactate Dehydrogenase Total Creatine Kinase CK-MB (CK-2) Rel Index Troponin T C-Reactive Protein Total Protein Albumin Prealbumin LDL Cholesterol Direct HDL Cholesterol Arterial Blood Glucose Arterial Blood Ionized Calcium Urine WBC (Auto) 03/27/20 03/27/2003/27/20 05:41 05:59 05:59 WBC 18.6 H RBC Hgb 10.1 L Hct 31.4 L MCV MCH RDW 17.2 H Plt Count Lymph % (Auto) 8.0 L [place] % (Auto) Lymph # (Auto) [place] # (Auto) 1.2 H Seg Neutrophils % 84.7 H Seg Neuts % (Manual) Lymphocytes % (Manual) Monocytes % (Manual) Basophils % (Manual) Seg Neutrophils # 15.8 H Seg Neutrophils # Man Lymphocytes # (Manual) Monocytes # (Manual) Eosinophils # (Manual) Basophils # (Manual) PT INR D-Dimer ABG pH POC ABG pCO2 POC ABG pO2 ABG pO2 ABG HCO3 ABG O2 Saturation ABG Base Excess ABG Hemoglobin ABG Oxyhemoglobin ABG Potassium ABG Glucose Oxyhemoglobin Carboxyhemoglobin Sodium Potassium Chloride Carbon Dioxide 34 H BUN Creatinine < 0.2 L Glucose 127 H POC Glucose 129 H Calcium Ferritin Total Bilirubin Alkaline Phosphatase Lactate Dehydrogenase Total Creatine Kinase CK-MB (CK-2) Rel Index Troponin T C-Reactive Protein Total Protein Albumin Prealbumin LDL Cholesterol Direct HDL Cholesterol Arterial Blood Glucose Arterial Blood Ionized Calcium Urine WBC (Auto) 03/27/20 03/27/20 03/28/20 17:28 23:22 05:23 WBC RBC Hgb Hct MCV MCH RDW Plt Count Lymph % (Auto) [place] % (Auto) Lymph # (Auto) [place] # (Auto) Seg Neutrophils % Seg Neuts % (Manual) Lymphocytes % (Manual) Monocytes % (Manual) Basophils % (Manual) Seg Neutrophils # Seg Neutrophils # Man Lymphocytes # (Manual) Monocytes # (Manual) Eosinophils # (Manual) Basophils # (Manual) PT INR D-Dimer ABG pH POC ABG pCO2 POC ABG pO2 ABG pO2 ABG HCO3 ABG O2 Saturation ABG Base Excess ABG Hemoglobin ABG Oxyhemoglobin ABG Potassium ABG Glucose Oxyhemoglobin Carboxyhemoglobin Sodium Potassium Chloride Carbon Dioxide BUN Creatinine Glucose POC Glucose 108 H 119 H 129 H Calcium Ferritin Total Bilirubin Alkaline Phosphatase Lactate Dehydrogenase Total Creatine Kinase CK-MB (CK-2) Rel Index Troponin T C-Reactive Protein Total Protein Albumin Prealbumin LDL Cholesterol Direct HDL Cholesterol Arterial Blood Glucose Arterial Blood Ionized Calcium Urine WBC (Auto) 03/28/20 03/28/20 03/28/20 10:28 10:28 11:36 WBC 23.6 H RBC 3.62 L Hgb 10.0 L Hct 30.8 L MCV MCH RDW 16.4 H Plt Count Lymph % (Auto) [place] % (Auto) Lymph # (Auto) [place] # (Auto) Seg Neutrophils % Seg Neuts % (Manual) 89.0 H Lymphocytes % (Manual) 5.0 L Monocytes % (Manual) Basophils % (Manual) Seg Neutrophils # Seg Neutrophils # Man 21.0 H Lymphocytes # (Manual) Monocytes # (Manual) 1.2 H Eosinophils # (Manual) Basophils # (Manual) 0.2 H PT INR D-Dimer ABG pH POC ABG pCO2 POC ABG pO2 ABG pO2 ABG HCO3 ABG O2 Saturation ABG Base Excess ABG Hemoglobin ABG Oxyhemoglobin ABG Potassium ABG Glucose Oxyhemoglobin Carboxyhemoglobin Sodium 134 L Potassium Chloride 94.2 L Carbon Dioxide 35 H BUN Creatinine < 0.2 L Glucose 134 H POC Glucose Calcium Ferritin Total Bilirubin Alkaline Phosphatase Lactate Dehydrogenase Total Creatine Kinase CK-MB (CK-2) Rel Index Troponin T C-Reactive Protein Total Protein Albumin Prealbumin LDL Cholesterol Direct HDL Cholesterol Arterial Blood Glucose Arterial Blood Ionized Calcium Urine WBC (Auto) 39.0 H 03/28/20 03/28/20 03/28/20 11:51 17:08 17:17 WBC RBC Hgb Hct MCV MCH RDW Plt Count Lymph % (Auto) [place] % (Auto) Lymph # (Auto) [place] # (Auto) Seg Neutrophils % Seg Neuts % (Manual) Lymphocytes % (Manual) Monocytes % (Manual) Basophils % (Manual) Seg Neutrophils # Seg Neutrophils # Man Lymphocytes # (Manual) Monocytes # (Manual) Eosinophils # (Manual) Basophils # (Manual) PT INR D-Dimer ABG pH POC ABG pCO2 POC ABG pO2 ABG pO2 ABG HCO3 ABG O2 Saturation ABG Base Excess ABG Hemoglobin ABG Oxyhemoglobin ABG Potassium ABG Glucose Oxyhemoglobin Carboxyhemoglobin Sodium Potassium Chloride Carbon Dioxide BUN Creatinine Glucose POC Glucose 123 H 112 H Calcium Ferritin Total Bilirubin Alkaline Phosphatase Lactate Dehydrogenase Total Creatine Kinase 47 L CK-MB (CK-2) Rel Index 4.6 H Troponin T 0.090 H C-Reactive Protein Total Protein Albumin Prealbumin LDL Cholesterol Direct HDL Cholesterol Arterial Blood Glucose Arterial Blood Ionized Calcium Urine WBC (Auto) 03/28/20 03/29/20 03/29/20 23:22 05:22 10:58 WBC RBC Hgb Hct MCV MCH RDW Plt Count Lymph % (Auto) [place] % (Auto) Lymph # (Auto) [place] # (Auto) Seg Neutrophils % Seg Neuts % (Manual) Lymphocytes % (Manual) Monocytes % (Manual) Basophils % (Manual) Seg Neutrophils # Seg Neutrophils # Man Lymphocytes # (Manual) Monocytes # (Manual) Eosinophils # (Manual) Basophils # (Manual) PT INR D-Dimer ABG pH POC ABG pCO2 POC ABG pO2 ABG pO2 ABG HCO3 ABG O2 Saturation ABG Base Excess ABG Hemoglobin ABG Oxyhemoglobin ABG Potassium ABG Glucose Oxyhemoglobin Carboxyhemoglobin Sodium Potassium Chloride Carbon Dioxide BUN Creatinine Glucose POC Glucose 122 H 116 H 133 H Calcium Ferritin Total Bilirubin Alkaline Phosphatase Lactate Dehydrogenase Total Creatine Kinase CK-MB (CK-2) Rel Index Troponin T C-Reactive Protein Total Protein Albumin Prealbumin LDL Cholesterol Direct HDL Cholesterol Arterial Blood Glucose Arterial Blood Ionized Calcium Urine WBC (Auto) 03/29/20 03/29/20 03/30/20 17:18 23:14 04:57 WBC RBC Hgb Hct MCV MCH RDW Plt Count Lymph % (Auto) [place] % (Auto) Lymph # (Auto) [place] # (Auto) Seg Neutrophils % Seg Neuts % (Manual) Lymphocytes % (Manual) Monocytes % (Manual) Basophils % (Manual) Seg Neutrophils # Seg Neutrophils # Man Lymphocytes # (Manual) Monocytes # (Manual) Eosinophils # (Manual) Basophils # (Manual) PT INR D-Dimer ABG pH POC ABG pCO2 POC ABG pO2 ABG pO2 ABG HCO3 ABG O2 Saturation ABG Base Excess ABG Hemoglobin ABG Oxyhemoglobin ABG Potassium ABG Glucose Oxyhemoglobin Carboxyhemoglobin Sodium Potassium Chloride Carbon Dioxide BUN Creatinine Glucose POC Glucose 111 H 114 H 130 H Calcium Ferritin Total Bilirubin Alkaline Phosphatase Lactate Dehydrogenase Total Creatine Kinase CK-MB (CK-2) Rel Index Troponin T C-Reactive Protein Total Protein Albumin Prealbumin LDL Cholesterol Direct HDL Cholesterol Arterial Blood Glucose Arterial Blood Ionized Calcium Urine WBC (Auto) 03/30/20 03/30/20 03/30/20 11:38 14:47 14:47 WBC 19.9 H RBC Hgb 10.9 L Hct 34.4 L MCV MCH 27 L RDW 16.5 H Plt Count 441 H Lymph % (Auto) 6.4 L [place] % (Auto) Lymph # (Auto) [place] # (Auto) 1.4 H Seg Neutrophils % 86.1 H Seg Neuts % (Manual) Lymphocytes % (Manual) Monocytes % (Manual) Basophils % (Manual) Seg Neutrophils # 17.1 H Seg Neutrophils # Man Lymphocytes # (Manual) Monocytes # (Manual) Eosinophils # (Manual) Basophils # (Manual) PT INR D-Dimer ABG pH POC ABG pCO2 POC ABG pO2 ABG pO2 ABG HCO3 ABG O2 Saturation ABG Base Excess ABG Hemoglobin ABG Oxyhemoglobin ABG Potassium ABG Glucose Oxyhemoglobin Carboxyhemoglobin Sodium 133 L Potassium Chloride 94.6 L Carbon Dioxide 33 H BUN Creatinine < 0.2 L Glucose 194 H POC Glucose 139 H Calcium Ferritin Total Bilirubin Alkaline Phosphatase Lactate Dehydrogenase Total Creatine Kinase CK-MB (CK-2) Rel Index Troponin T C-Reactive Protein Total Protein Albumin 2.8 L Prealbumin LDL Cholesterol Direct HDL Cholesterol Arterial Blood Glucose Arterial Blood Ionized Calcium Urine WBC (Auto) 03/30/20 03/31/20 03/31/20 17:07 05:02 15:21 WBC RBC Hgb Hct MCV MCH RDW Plt Count Lymph % (Auto) [place] % (Auto) Lymph # (Auto) [place] # (Auto) Seg Neutrophils % Seg Neuts % (Manual) Lymphocytes % (Manual) Monocytes % (Manual) Basophils % (Manual) Seg Neutrophils # Seg Neutrophils # Man Lymphocytes # (Manual) Monocytes # (Manual) Eosinophils # (Manual) Basophils # (Manual) PT INR D-Dimer ABG pH POC ABG pCO2 POC ABG pO2 ABG pO2 ABG HCO3 ABG O2 Saturation ABG Base Excess ABG Hemoglobin ABG Oxyhemoglobin ABG Potassium ABG Glucose Oxyhemoglobin Carboxyhemoglobin Sodium Potassium Chloride Carbon Dioxide BUN Creatinine Glucose POC Glucose 163 H 108 H 110 H Calcium Ferritin Total Bilirubin Alkaline Phosphatase Lactate Dehydrogenase Total Creatine Kinase CK-MB (CK-2) Rel Index Troponin T C-Reactive Protein Total Protein Albumin Prealbumin LDL Cholesterol Direct HDL Cholesterol Arterial Blood Glucose Arterial Blood Ionized Calcium Urine WBC (Auto) 03/31/20 03/31/20 04/01/20 17:58 23:19 05:09 WBC RBC Hgb Hct MCV MCH RDW Plt Count Lymph % (Auto) [place] % (Auto) Lymph # (Auto) [place] # (Auto) Seg Neutrophils % Seg Neuts % (Manual) Lymphocytes % (Manual) Monocytes % (Manual) Basophils % (Manual) Seg Neutrophils # Seg Neutrophils # Man Lymphocytes # (Manual) Monocytes # (Manual) Eosinophils # (Manual) Basophils # (Manual) PT INR D-Dimer ABG pH POC ABG pCO2 POC ABG pO2 ABG pO2 ABG HCO3 ABG O2 Saturation ABG Base Excess ABG Hemoglobin ABG Oxyhemoglobin ABG Potassium ABG Glucose Oxyhemoglobin Carboxyhemoglobin Sodium Potassium Chloride Carbon Dioxide BUN Creatinine Glucose POC Glucose 110 H 131 H 124 H Calcium Ferritin Total Bilirubin Alkaline Phosphatase Lactate Dehydrogenase Total Creatine Kinase CK-MB (CK-2) Rel Index Troponin T C-Reactive Protein Total Protein Albumin Prealbumin LDL Cholesterol Direct HDL Cholesterol Arterial Blood Glucose Arterial Blood Ionized Calcium Urine WBC (Auto) 04/01/20 04/01/20 04/01/20 11:50 17:01 23:21 WBC RBC Hgb Hct MCV MCH RDW Plt Count Lymph % (Auto) [place] % (Auto) Lymph # (Auto) [place] # (Auto) Seg Neutrophils % Seg Neuts % (Manual) Lymphocytes % (Manual) Monocytes % (Manual) Basophils % (Manual) Seg Neutrophils # Seg Neutrophils # Man Lymphocytes # (Manual) Monocytes # (Manual) Eosinophils # (Manual) Basophils # (Manual) PT INR D-Dimer ABG pH POC ABG pCO2 POC ABG pO2 ABG pO2 ABG HCO3 ABG O2 Saturation ABG Base Excess ABG Hemoglobin ABG Oxyhemoglobin ABG Potassium ABG Glucose Oxyhemoglobin Carboxyhemoglobin Sodium Potassium Chloride Carbon Dioxide BUN Creatinine Glucose POC Glucose 136 H 115 H 124 H Calcium Ferritin Total Bilirubin Alkaline Phosphatase Lactate Dehydrogenase Total Creatine Kinase CK-MB (CK-2) Rel Index Troponin T C-Reactive Protein Total Protein Albumin Prealbumin LDL Cholesterol Direct HDL Cholesterol Arterial Blood Glucose Arterial Blood Ionized Calcium Urine WBC (Auto) 04/02/20 04/02/20 04/02/20 05:27 11:58 17:58 WBC RBC Hgb Hct MCV MCH RDW Plt Count Lymph % (Auto) [place] % (Auto) Lymph # (Auto) [place] # (Auto) Seg Neutrophils % Seg Neuts % (Manual) Lymphocytes % (Manual) Monocytes % (Manual) Basophils % (Manual) Seg Neutrophils # Seg Neutrophils # Man Lymphocytes # (Manual) Monocytes # (Manual) Eosinophils # (Manual) Basophils # (Manual) PT INR D-Dimer ABG pH POC ABG pCO2 POC ABG pO2 ABG pO2 ABG HCO3 ABG O2 Saturation ABG Base Excess ABG Hemoglobin ABG Oxyhemoglobin ABG Potassium ABG Glucose Oxyhemoglobin Carboxyhemoglobin Sodium Potassium Chloride Carbon Dioxide BUN Creatinine Glucose POC Glucose 117 H 133 H 122 H Calcium Ferritin Total Bilirubin Alkaline Phosphatase Lactate Dehydrogenase Total Creatine Kinase CK-MB (CK-2) Rel Index Troponin T C-Reactive Protein Total Protein Albumin Prealbumin LDL Cholesterol Direct HDL Cholesterol Arterial Blood Glucose Arterial Blood Ionized Calcium Urine WBC (Auto) 04/02/20 04/03/20 04/03/20 23:12 05:11 11:11 WBC RBC Hgb Hct MCV MCH RDW Plt Count Lymph % (Auto) [place] % (Auto) Lymph # (Auto) [place] # (Auto) Seg Neutrophils % Seg Neuts % (Manual) Lymphocytes % (Manual) Monocytes % (Manual) Basophils % (Manual) Seg Neutrophils # Seg Neutrophils # Man Lymphocytes # (Manual) Monocytes # (Manual) Eosinophils # (Manual) Basophils # (Manual) PT INR D-Dimer ABG pH POC ABG pCO2 POC ABG pO2 ABG pO2 ABG HCO3 ABG O2 Saturation ABG Base Excess ABG Hemoglobin ABG Oxyhemoglobin ABG Potassium ABG Glucose Oxyhemoglobin Carboxyhemoglobin Sodium Potassium Chloride Carbon Dioxide BUN Creatinine Glucose POC Glucose 130 H 139 H 136 H Calcium Ferritin Total Bilirubin Alkaline Phosphatase Lactate Dehydrogenase Total Creatine Kinase CK-MB (CK-2) Rel Index Troponin T C-Reactive Protein Total Protein Albumin Prealbumin LDL Cholesterol Direct HDL Cholesterol Arterial Blood Glucose Arterial Blood Ionized Calcium Urine WBC (Auto) 04/03/20 04/03/20 04/04/20 16:51 23:25 05:29 WBC RBC Hgb Hct MCV MCH RDW Plt Count Lymph % (Auto) [place] % (Auto) Lymph # (Auto) [place] # (Auto) Seg Neutrophils % Seg Neuts % (Manual) Lymphocytes % (Manual) Monocytes % (Manual) Basophils % (Manual) Seg Neutrophils # Seg Neutrophils # Man Lymphocytes # (Manual) Monocytes # (Manual) Eosinophils # (Manual) Basophils # (Manual) PT INR D-Dimer ABG pH POC ABG pCO2 POC ABG pO2 ABG pO2 ABG HCO3 ABG O2 Saturation ABG Base Excess ABG Hemoglobin ABG Oxyhemoglobin ABG Potassium ABG Glucose Oxyhemoglobin Carboxyhemoglobin Sodium Potassium Chloride Carbon Dioxide BUN Creatinine Glucose POC Glucose 118 H 111 H 126 H Calcium Ferritin Total Bilirubin Alkaline Phosphatase Lactate Dehydrogenase Total Creatine Kinase CK-MB (CK-2) Rel Index Troponin T C-Reactive Protein Total Protein Albumin Prealbumin LDL Cholesterol Direct HDL Cholesterol Arterial Blood Glucose Arterial Blood Ionized Calcium Urine WBC (Auto) 04/04/20 04/04/20 04/04/20 11:47 17:41 23:05 WBC RBC Hgb Hct MCV MCH RDW Plt Count Lymph % (Auto) [place] % (Auto) Lymph # (Auto) [place] # (Auto) Seg Neutrophils % Seg Neuts % (Manual) Lymphocytes % (Manual) Monocytes % (Manual) Basophils % (Manual) Seg Neutrophils # Seg Neutrophils # Man Lymphocytes # (Manual) Monocytes # (Manual) Eosinophils # (Manual) Basophils # (Manual) PT INR D-Dimer ABG pH POC ABG pCO2 POC ABG pO2 ABG pO2 ABG HCO3 ABG O2 Saturation ABG Base Excess ABG Hemoglobin ABG Oxyhemoglobin ABG Potassium ABG Glucose Oxyhemoglobin Carboxyhemoglobin Sodium Potassium Chloride Carbon Dioxide BUN Creatinine Glucose POC Glucose 123 H 120 H 119 H Calcium Ferritin Total Bilirubin Alkaline Phosphatase Lactate Dehydrogenase Total Creatine Kinase CK-MB (CK-2) Rel Index Troponin T C-Reactive Protein Total Protein Albumin Prealbumin LDL Cholesterol Direct HDL Cholesterol Arterial Blood Glucose Arterial Blood Ionized Calcium Urine WBC (Auto) 04/05/20 04/05/20 04/05/20 05:14 12:16 18:48 WBC RBC Hgb Hct MCV MCH RDW Plt Count Lymph % (Auto) [place] % (Auto) Lymph # (Auto) [place] # (Auto) Seg Neutrophils % Seg Neuts % (Manual) Lymphocytes % (Manual) Monocytes % (Manual) Basophils % (Manual) Seg Neutrophils # Seg Neutrophils # Man Lymphocytes # (Manual) Monocytes # (Manual) Eosinophils # (Manual) Basophils # (Manual) PT INR D-Dimer ABG pH POC ABG pCO2 POC ABG pO2 ABG pO2 ABG HCO3 ABG O2 Saturation ABG Base Excess ABG Hemoglobin ABG Oxyhemoglobin ABG Potassium ABG Glucose Oxyhemoglobin Carboxyhemoglobin Sodium Potassium Chloride Carbon Dioxide BUN Creatinine Glucose POC Glucose 123 H 148 H 106 H Calcium Ferritin Total Bilirubin Alkaline Phosphatase Lactate Dehydrogenase Total Creatine Kinase CK-MB (CK-2) Rel Index Troponin T C-Reactive Protein Total Protein Albumin Prealbumin LDL Cholesterol Direct HDL Cholesterol Arterial Blood Glucose Arterial Blood Ionized Calcium Urine WBC (Auto) 04/06/20 04/06/20 04/06/20 00:47 03:26 08:24 WBC RBC Hgb Hct MCV MCH RDW Plt Count Lymph % (Auto) [place] % (Auto) Lymph # (Auto) [place] # (Auto) Seg Neutrophils % Seg Neuts % (Manual) Lymphocytes % (Manual) Monocytes % (Manual) Basophils % (Manual) Seg Neutrophils # Seg Neutrophils # Man Lymphocytes # (Manual) Monocytes # (Manual) Eosinophils # (Manual) Basophils # (Manual) PT INR D-Dimer ABG pH POC ABG pCO2 POC ABG pO2 ABG pO2 ABG HCO3 ABG O2 Saturation ABG Base Excess ABG Hemoglobin ABG Oxyhemoglobin ABG Potassium ABG Glucose Oxyhemoglobin Carboxyhemoglobin Sodium Potassium Chloride Carbon Dioxide BUN Creatinine Glucose POC Glucose 129 H 134 H 131 H Calcium Ferritin Total Bilirubin Alkaline Phosphatase Lactate Dehydrogenase Total Creatine Kinase CK-MB (CK-2) Rel Index Troponin T C-Reactive Protein Total Protein Albumin Prealbumin LDL Cholesterol Direct HDL Cholesterol Arterial Blood Glucose Arterial Blood Ionized Calcium Urine WBC (Auto) 04/06/20 04/06/20 04/06/20 11:16 16:27 23:01 WBC RBC Hgb Hct MCV MCH RDW Plt Count Lymph % (Auto) [place] % (Auto) Lymph # (Auto) [place] # (Auto) Seg Neutrophils % Seg Neuts % (Manual) Lymphocytes % (Manual) Monocytes % (Manual) Basophils % (Manual) Seg Neutrophils # Seg Neutrophils # Man Lymphocytes # (Manual) Monocytes # (Manual) Eosinophils # (Manual) Basophils # (Manual) PT INR D-Dimer ABG pH POC ABG pCO2 POC ABG pO2 ABG pO2 ABG HCO3 ABG O2 Saturation ABG Base Excess ABG Hemoglobin ABG Oxyhemoglobin ABG Potassium ABG Glucose Oxyhemoglobin Carboxyhemoglobin Sodium Potassium Chloride Carbon Dioxide BUN Creatinine Glucose POC Glucose 131 H 107 H 125 H Calcium Ferritin Total Bilirubin Alkaline Phosphatase Lactate Dehydrogenase Total Creatine Kinase CK-MB (CK-2) Rel Index Troponin T C-Reactive Protein Total Protein Albumin Prealbumin LDL Cholesterol Direct HDL Cholesterol Arterial Blood Glucose Arterial Blood Ionized Calcium Urine WBC (Auto) 04/07/20 04/07/20 04/07/20 05:24 12:41 17:40 WBC RBC Hgb Hct MCV MCH RDW Plt Count Lymph % (Auto) [place] % (Auto) Lymph # (Auto) [place] # (Auto) Seg Neutrophils % Seg Neuts % (Manual) Lymphocytes % (Manual) Monocytes % (Manual) Basophils % (Manual) Seg Neutrophils # Seg Neutrophils # Man Lymphocytes # (Manual) Monocytes # (Manual) Eosinophils # (Manual) Basophils # (Manual) PT INR D-Dimer ABG pH POC ABG pCO2 POC ABG pO2 ABG pO2 ABG HCO3 ABG O2 Saturation ABG Base Excess ABG Hemoglobin ABG Oxyhemoglobin ABG Potassium ABG Glucose Oxyhemoglobin Carboxyhemoglobin Sodium Potassium Chloride Carbon Dioxide BUN Creatinine Glucose POC Glucose 125 H 145 H 123 H Calcium Ferritin Total Bilirubin Alkaline Phosphatase Lactate Dehydrogenase Total Creatine Kinase CK-MB (CK-2) Rel Index Troponin T C-Reactive Protein Total Protein Albumin Prealbumin LDL Cholesterol Direct HDL Cholesterol Arterial Blood Glucose Arterial Blood Ionized Calcium Urine WBC (Auto) 04/07/20 04/08/20 04/08/20 23:22 05:40 11:29 WBC RBC Hgb Hct MCV MCH RDW Plt Count Lymph % (Auto) [place] % (Auto) Lymph # (Auto) [place] # (Auto) Seg Neutrophils % Seg Neuts % (Manual) Lymphocytes % (Manual) Monocytes % (Manual) Basophils % (Manual) Seg Neutrophils # Seg Neutrophils # Man Lymphocytes # (Manual) Monocytes # (Manual) Eosinophils # (Manual) Basophils # (Manual) PT INR D-Dimer ABG pH POC ABG pCO2 POC ABG pO2 ABG pO2 ABG HCO3 ABG O2 Saturation ABG Base Excess ABG Hemoglobin ABG Oxyhemoglobin ABG Potassium ABG Glucose Oxyhemoglobin Carboxyhemoglobin Sodium Potassium Chloride Carbon Dioxide BUN Creatinine Glucose POC Glucose 133 H 125 H 116 H Calcium Ferritin Total Bilirubin Alkaline Phosphatase Lactate Dehydrogenase Total Creatine Kinase CK-MB (CK-2) Rel Index Troponin T C-Reactive Protein Total Protein Albumin Prealbumin LDL Cholesterol Direct HDL Cholesterol Arterial Blood Glucose Arterial Blood Ionized Calcium Urine WBC (Auto) 04/08/20 04/09/20 04/09/20 17:43 05:47 12:22 WBC RBC Hgb Hct MCV MCH RDW Plt Count Lymph % (Auto) [place] % (Auto) Lymph # (Auto) [place] # (Auto) Seg Neutrophils % Seg Neuts % (Manual) Lymphocytes % (Manual) Monocytes % (Manual) Basophils % (Manual) Seg Neutrophils # Seg Neutrophils # Man Lymphocytes # (Manual) Monocytes # (Manual) Eosinophils # (Manual) Basophils # (Manual) PT INR D-Dimer ABG pH POC ABG pCO2 POC ABG pO2 ABG pO2 ABG HCO3 ABG O2 Saturation ABG Base Excess ABG Hemoglobin ABG Oxyhemoglobin ABG Potassium ABG Glucose Oxyhemoglobin Carboxyhemoglobin Sodium Potassium Chloride Carbon Dioxide BUN Creatinine Glucose POC Glucose 123 H 108 H 116 H Calcium Ferritin Total Bilirubin Alkaline Phosphatase Lactate Dehydrogenase Total Creatine Kinase CK-MB (CK-2) Rel Index Troponin T C-Reactive Protein Total Protein Albumin Prealbumin LDL Cholesterol Direct HDL Cholesterol Arterial Blood Glucose Arterial Blood Ionized Calcium Urine WBC (Auto) 04/09/20 04/09/20 04/10/20 17:24 23:52 06:10 WBC RBC Hgb Hct MCV MCH RDW Plt Count Lymph % (Auto) [place] % (Auto) Lymph # (Auto) [place] # (Auto) Seg Neutrophils % Seg Neuts % (Manual) Lymphocytes % (Manual) Monocytes % (Manual) Basophils % (Manual) Seg Neutrophils # Seg Neutrophils # Man Lymphocytes # (Manual) Monocytes # (Manual) Eosinophils # (Manual) Basophils # (Manual) PT INR D-Dimer ABG pH POC ABG pCO2 POC ABG pO2 ABG pO2 ABG HCO3 ABG O2 Saturation ABG Base Excess ABG Hemoglobin ABG Oxyhemoglobin ABG Potassium ABG Glucose Oxyhemoglobin Carboxyhemoglobin Sodium Potassium Chloride Carbon Dioxide BUN Creatinine Glucose POC Glucose 108 H 126 H 122 H Calcium Ferritin Total Bilirubin Alkaline Phosphatase Lactate Dehydrogenase Total Creatine Kinase CK-MB (CK-2) Rel Index Troponin T C-Reactive Protein Total Protein Albumin Prealbumin LDL Cholesterol Direct HDL Cholesterol Arterial Blood Glucose Arterial Blood Ionized Calcium Urine WBC (Auto) 04/10/20 04/10/20 04/10/20 11:27 18:11 23:24 WBC RBC Hgb Hct MCV MCH RDW Plt Count Lymph % (Auto) [place] % (Auto) Lymph # (Auto) [place] # (Auto) Seg Neutrophils % Seg Neuts % (Manual) Lymphocytes % (Manual) Monocytes % (Manual) Basophils % (Manual) Seg Neutrophils # Seg Neutrophils # Man Lymphocytes # (Manual) Monocytes # (Manual) Eosinophils # (Manual) Basophils # (Manual) PT INR D-Dimer ABG pH POC ABG pCO2 POC ABG pO2 ABG pO2 ABG HCO3 ABG O2 Saturation ABG Base Excess ABG Hemoglobin ABG Oxyhemoglobin ABG Potassium ABG Glucose Oxyhemoglobin Carboxyhemoglobin Sodium Potassium Chloride Carbon Dioxide BUN Creatinine Glucose POC Glucose 129 H 125 H 107 H Calcium Ferritin Total Bilirubin Alkaline Phosphatase Lactate Dehydrogenase Total Creatine Kinase CK-MB (CK-2) Rel Index Troponin T C-Reactive Protein Total Protein Albumin Prealbumin LDL Cholesterol Direct HDL Cholesterol Arterial Blood Glucose Arterial Blood Ionized Calcium Urine WBC (Auto) 04/11/20 04/11/20 04/11/20 05:28 11:46 23:49 WBC RBC Hgb Hct MCV MCH RDW Plt Count Lymph % (Auto) [place] % (Auto) Lymph # (Auto) [place] # (Auto) Seg Neutrophils % Seg Neuts % (Manual) Lymphocytes % (Manual) Monocytes % (Manual) Basophils % (Manual) Seg Neutrophils # Seg Neutrophils # Man Lymphocytes # (Manual) Monocytes # (Manual) Eosinophils # (Manual) Basophils # (Manual) PT INR D-Dimer ABG pH POC ABG pCO2 POC ABG pO2 ABG pO2 ABG HCO3 ABG O2 Saturation ABG Base Excess ABG Hemoglobin ABG Oxyhemoglobin ABG Potassium ABG Glucose Oxyhemoglobin Carboxyhemoglobin Sodium Potassium Chloride Carbon Dioxide BUN Creatinine Glucose POC Glucose 122 H 122 H 116 H Calcium Ferritin Total Bilirubin Alkaline Phosphatase Lactate Dehydrogenase Total Creatine Kinase CK-MB (CK-2) Rel Index Troponin T C-Reactive Protein Total Protein Albumin Prealbumin LDL Cholesterol Direct HDL Cholesterol Arterial Blood Glucose Arterial Blood Ionized Calcium Urine WBC (Auto) 04/12/20 04/12/20 04/12/20 09:07 09:07 11:39 WBC 13.1 H RBC 3.59 L Hgb 9.5 L Hct 29.8 L MCV 83 L MCH 26 L RDW 16.6 H Plt Count 591 H Lymph % (Auto) [place] % (Auto) Lymph # (Auto) [place] # (Auto) Seg Neutrophils % Seg Neuts % (Manual) 86.0 H Lymphocytes % (Manual) 7.0 L Monocytes % (Manual) Basophils % (Manual) Seg Neutrophils # Seg Neutrophils # Man 11.3 H Lymphocytes # (Manual) 0.9 L Monocytes # (Manual) Eosinophils # (Manual) Basophils # (Manual) PT INR D-Dimer ABG pH POC ABG pCO2 POC ABG pO2 ABG pO2 ABG HCO3 ABG O2 Saturation ABG Base Excess ABG Hemoglobin ABG Oxyhemoglobin ABG Potassium ABG Glucose Oxyhemoglobin Carboxyhemoglobin Sodium Potassium Chloride Carbon Dioxide 36 H BUN Creatinine < 0.2 L Glucose 132 H POC Glucose 136 H Calcium Ferritin Total Bilirubin Alkaline Phosphatase Lactate Dehydrogenase Total Creatine Kinase CK-MB (CK-2) Rel Index Troponin T C-Reactive Protein Total Protein Albumin 2.7 L Prealbumin LDL Cholesterol Direct HDL Cholesterol Arterial Blood Glucose Arterial Blood Ionized Calcium Urine WBC (Auto) 04/12/20 04/12/20 04/13/20 18:13 23:07 05:45 WBC RBC Hgb Hct MCV MCH RDW Plt Count Lymph % (Auto) [place] % (Auto) Lymph # (Auto) [place] # (Auto) Seg Neutrophils % Seg Neuts % (Manual) Lymphocytes % (Manual) Monocytes % (Manual) Basophils % (Manual) Seg Neutrophils # Seg Neutrophils # Man Lymphocytes # (Manual) Monocytes # (Manual) Eosinophils # (Manual) Basophils # (Manual) PT INR D-Dimer ABG pH POC ABG pCO2 POC ABG pO2 ABG pO2 ABG HCO3 ABG O2 Saturation ABG Base Excess ABG Hemoglobin ABG Oxyhemoglobin ABG Potassium ABG Glucose Oxyhemoglobin Carboxyhemoglobin Sodium Potassium Chloride Carbon Dioxide BUN Creatinine Glucose POC Glucose 107 H 106 H 125 H Calcium Ferritin Total Bilirubin Alkaline Phosphatase Lactate Dehydrogenase Total Creatine Kinase CK-MB (CK-2) Rel Index Troponin T C-Reactive Protein Total Protein Albumin Prealbumin LDL Cholesterol Direct HDL Cholesterol Arterial Blood Glucose Arterial Blood Ionized Calcium Urine WBC (Auto) 04/13/20 04/13/20 04/13/20 11:18 17:56 23:33 WBC RBC Hgb Hct MCV MCH RDW Plt Count Lymph % (Auto) [place] % (Auto) Lymph # (Auto) [place] # (Auto) Seg Neutrophils % Seg Neuts % (Manual) Lymphocytes % (Manual) Monocytes % (Manual) Basophils % (Manual) Seg Neutrophils # Seg Neutrophils # Man Lymphocytes # (Manual) Monocytes # (Manual) Eosinophils # (Manual) Basophils # (Manual) PT INR D-Dimer ABG pH POC ABG pCO2 POC ABG pO2 ABG pO2 ABG HCO3 ABG O2 Saturation ABG Base Excess ABG Hemoglobin ABG Oxyhemoglobin ABG Potassium ABG Glucose Oxyhemoglobin Carboxyhemoglobin Sodium Potassium Chloride Carbon Dioxide BUN Creatinine Glucose POC Glucose 133 H 110 H 114 H Calcium Ferritin Total Bilirubin Alkaline Phosphatase Lactate Dehydrogenase Total Creatine Kinase CK-MB (CK-2) Rel Index Troponin T C-Reactive Protein Total Protein Albumin Prealbumin LDL Cholesterol Direct HDL Cholesterol Arterial Blood Glucose Arterial Blood Ionized Calcium Urine WBC (Auto) 04/14/20 04/14/20 04/14/20 05:58 11:45 17:48 WBC RBC Hgb Hct MCV MCH RDW Plt Count Lymph % (Auto) [place] % (Auto) Lymph # (Auto) [place] # (Auto) Seg Neutrophils % Seg Neuts % (Manual) Lymphocytes % (Manual) Monocytes % (Manual) Basophils % (Manual) Seg Neutrophils # Seg Neutrophils # Man Lymphocytes # (Manual) Monocytes # (Manual) Eosinophils # (Manual) Basophils # (Manual) PT INR D-Dimer ABG pH POC ABG pCO2 POC ABG pO2 ABG pO2 ABG HCO3 ABG O2 Saturation ABG Base Excess ABG Hemoglobin ABG Oxyhemoglobin ABG Potassium ABG Glucose Oxyhemoglobin Carboxyhemoglobin Sodium Potassium Chloride Carbon Dioxide BUN Creatinine Glucose POC Glucose 115 H 122 H 124 H Calcium Ferritin Total Bilirubin Alkaline Phosphatase Lactate Dehydrogenase Total Creatine Kinase CK-MB (CK-2) Rel Index Troponin T C-Reactive Protein Total Protein Albumin Prealbumin LDL Cholesterol Direct HDL Cholesterol Arterial Blood Glucose Arterial Blood Ionized Calcium Urine WBC (Auto) 04/15/20 04/15/20 04/15/20 00:11 05:38 11:31 WBC RBC Hgb Hct MCV MCH RDW Plt Count Lymph % (Auto) [place] % (Auto) Lymph # (Auto) [place] # (Auto) Seg Neutrophils % Seg Neuts % (Manual) Lymphocytes % (Manual) Monocytes % (Manual) Basophils % (Manual) Seg Neutrophils # Seg Neutrophils # Man Lymphocytes # (Manual) Monocytes # (Manual) Eosinophils # (Manual) Basophils # (Manual) PT INR D-Dimer ABG pH POC ABG pCO2 POC ABG pO2 ABG pO2 ABG HCO3 ABG O2 Saturation ABG Base Excess ABG Hemoglobin ABG Oxyhemoglobin ABG Potassium ABG Glucose Oxyhemoglobin Carboxyhemoglobin Sodium Potassium Chloride Carbon Dioxide BUN Creatinine Glucose POC Glucose 120 H 109 H 123 H Calcium Ferritin Total Bilirubin Alkaline Phosphatase Lactate Dehydrogenase Total Creatine Kinase CK-MB (CK-2) Rel Index Troponin T C-Reactive Protein Total Protein Albumin Prealbumin LDL Cholesterol Direct HDL Cholesterol Arterial Blood Glucose Arterial Blood Ionized Calcium Urine WBC (Auto) 04/15/20 04/16/20 04/16/20 17:35 06:00 11:29 WBC RBC Hgb Hct MCV MCH RDW Plt Count Lymph % (Auto) [place] % (Auto) Lymph # (Auto) [place] # (Auto) Seg Neutrophils % Seg Neuts % (Manual) Lymphocytes % (Manual) Monocytes % (Manual) Basophils % (Manual) Seg Neutrophils # Seg Neutrophils # Man Lymphocytes # (Manual) Monocytes # (Manual) Eosinophils # (Manual) Basophils # (Manual) PT INR D-Dimer ABG pH POC ABG pCO2 POC ABG pO2 ABG pO2 ABG HCO3 ABG O2 Saturation ABG Base Excess ABG Hemoglobin ABG Oxyhemoglobin ABG Potassium ABG Glucose Oxyhemoglobin Carboxyhemoglobin Sodium Potassium Chloride Carbon Dioxide BUN Creatinine Glucose POC Glucose 111 H 142 H 108 H Calcium Ferritin Total Bilirubin Alkaline Phosphatase Lactate Dehydrogenase Total Creatine Kinase CK-MB (CK-2) Rel Index Troponin T C-Reactive Protein Total Protein Albumin Prealbumin LDL Cholesterol Direct HDL Cholesterol Arterial Blood Glucose Arterial Blood Ionized Calcium Urine WBC (Auto) 04/17/20 04/17/20 04/17/20 05:09 06:53 06:53 WBC 14.2 H RBC Hgb 10.1 L Hct 31.5 L MCV MCH 27 L RDW 17.2 H Plt Count 643 H Lymph % (Auto) [place] % (Auto) Lymph # (Auto) [place] # (Auto) Seg Neutrophils % Seg Neuts % (Manual) Lymphocytes % (Manual) Monocytes % (Manual) Basophils % (Manual) Seg Neutrophils # Seg Neutrophils # Man Lymphocytes # (Manual) Monocytes # (Manual) Eosinophils # (Manual) Basophils # (Manual) PT INR D-Dimer ABG pH POC ABG pCO2 POC ABG pO2 ABG pO2 ABG HCO3 ABG O2 Saturation ABG Base Excess ABG Hemoglobin ABG Oxyhemoglobin ABG Potassium ABG Glucose Oxyhemoglobin Carboxyhemoglobin Sodium Potassium Chloride 97.7 L Carbon Dioxide 38 H BUN Creatinine < 0.2 L Glucose 126 H POC Glucose 131 H Calcium Ferritin Total Bilirubin Alkaline Phosphatase Lactate Dehydrogenase Total Creatine Kinase CK-MB (CK-2) Rel Index Troponin T C-Reactive Protein Total Protein Albumin Prealbumin LDL Cholesterol Direct HDL Cholesterol Arterial Blood Glucose Arterial Blood Ionized Calcium Urine WBC (Auto) 04/17/20 04/18/20 04/18/20 11:21 00:23 04:01 WBC 15.3 H RBC Hgb 10.1 L Hct 31.9 L MCV 82 L MCH 26 L RDW 17.2 H Plt Count 665 H Lymph % (Auto) 12.9 L [place] % (Auto) Lymph # (Auto) [place] # (Auto) 1.1 H Seg Neutrophils % 78.0 H Seg Neuts % (Manual) Lymphocytes % (Manual) Monocytes % (Manual) Basophils % (Manual) Seg Neutrophils # 11.9 H Seg Neutrophils # Man Lymphocytes # (Manual) Monocytes # (Manual) Eosinophils # (Manual) Basophils # (Manual) PT INR D-Dimer ABG pH POC ABG pCO2 POC ABG pO2 ABG pO2 ABG HCO3 ABG O2 Saturation ABG Base Excess ABG Hemoglobin ABG Oxyhemoglobin ABG Potassium ABG Glucose Oxyhemoglobin Carboxyhemoglobin Sodium Potassium Chloride Carbon Dioxide BUN Creatinine Glucose POC Glucose 140 H 125 H Calcium Ferritin Total Bilirubin Alkaline Phosphatase Lactate Dehydrogenase Total Creatine Kinase CK-MB (CK-2) Rel Index Troponin T C-Reactive Protein Total Protein Albumin Prealbumin LDL Cholesterol Direct HDL Cholesterol Arterial Blood Glucose Arterial Blood Ionized Calcium Urine WBC (Auto) 04/18/20 04/18/20 04/18/20 04:01 11:29 17:30 WBC RBC Hgb Hct MCV MCH RDW Plt Count Lymph % (Auto) [place] % (Auto) Lymph # (Auto) [place] # (Auto) Seg Neutrophils % Seg Neuts % (Manual) Lymphocytes % (Manual) Monocytes % (Manual) Basophils % (Manual) Seg Neutrophils # Seg Neutrophils # Man Lymphocytes # (Manual) Monocytes # (Manual) Eosinophils # (Manual) Basophils # (Manual) PT INR D-Dimer ABG pH POC ABG pCO2 POC ABG pO2 ABG pO2 ABG HCO3 ABG O2 Saturation ABG Base Excess ABG Hemoglobin ABG Oxyhemoglobin ABG Potassium ABG Glucose Oxyhemoglobin Carboxyhemoglobin Sodium Potassium Chloride 97.0 L Carbon Dioxide 38 H BUN Creatinine < 0.2 L Glucose 117 H POC Glucose 136 H 107 H Calcium Ferritin Total Bilirubin Alkaline Phosphatase Lactate Dehydrogenase Total Creatine Kinase CK-MB (CK-2) Rel Index Troponin T C-Reactive Protein Total Protein Albumin Prealbumin LDL Cholesterol Direct HDL Cholesterol Arterial Blood Glucose Arterial Blood Ionized Calcium Urine WBC (Auto) 04/18/20 04/19/20 04/19/20 23:19 06:51 06:51 WBC 12.2 H RBC Hgb 9.8 L Hct 31.1 L MCV 82 L MCH 26 L RDW 17.2 H Plt Count 549 H Lymph % (Auto) 6.5 L [place] % (Auto) Lymph # (Auto) 0.8 L [place] # (Auto) Seg Neutrophils % 86.7 H Seg Neuts % (Manual) Lymphocytes % (Manual) Monocytes % (Manual) Basophils % (Manual) Seg Neutrophils # 10.6 H Seg Neutrophils # Man Lymphocytes # (Manual) Monocytes # (Manual) Eosinophils # (Manual) Basophils # (Manual) PT INR D-Dimer ABG pH POC ABG pCO2 POC ABG pO2 ABG pO2 ABG HCO3 ABG O2 Saturation ABG Base Excess ABG Hemoglobin ABG Oxyhemoglobin ABG Potassium ABG Glucose Oxyhemoglobin Carboxyhemoglobin Sodium Potassium Chloride 97.8 L Carbon Dioxide 38 H BUN Creatinine < 0.2 L Glucose 123 H POC Glucose 127 H Calcium Ferritin Total Bilirubin Alkaline Phosphatase Lactate Dehydrogenase Total Creatine Kinase CK-MB (CK-2) Rel Index Troponin T C-Reactive Protein Total Protein Albumin Prealbumin LDL Cholesterol Direct HDL Cholesterol Arterial Blood Glucose Arterial Blood Ionized Calcium Urine WBC (Auto) 04/19/20 04/19/20 04/20/20 13:41 18:33 05:56 WBC RBC Hgb Hct MCV MCH RDW Plt Count Lymph % (Auto) [place] % (Auto) Lymph # (Auto) [place] # (Auto) Seg Neutrophils % Seg Neuts % (Manual) Lymphocytes % (Manual) Monocytes % (Manual) Basophils % (Manual) Seg Neutrophils # Seg Neutrophils # Man Lymphocytes # (Manual) Monocytes # (Manual) Eosinophils # (Manual) Basophils # (Manual) PT INR D-Dimer ABG pH POC ABG pCO2 POC ABG pO2 ABG pO2 ABG HCO3 ABG O2 Saturation ABG Base Excess ABG Hemoglobin ABG Oxyhemoglobin ABG Potassium ABG Glucose Oxyhemoglobin Carboxyhemoglobin Sodium Potassium Chloride Carbon Dioxide BUN Creatinine Glucose POC Glucose 116 H 124 H 130 H Calcium Ferritin Total Bilirubin Alkaline Phosphatase Lactate Dehydrogenase Total Creatine Kinase CK-MB (CK-2) Rel Index Troponin T C-Reactive Protein Total Protein Albumin Prealbumin LDL Cholesterol Direct HDL Cholesterol Arterial Blood Glucose Arterial Blood Ionized Calcium Urine WBC (Auto) 04/20/20 04/20/20 04/20/20 06:28 06:28 11:46 WBC RBC Hgb 10.2 L Hct 31.5 L MCV 82 L MCH 27 L RDW 17.1 H Plt Count 546 H Lymph % (Auto) 10.0 L [place] % (Auto) 9.8 H Lymph # (Auto) 1.1 L [place] # (Auto) 1.1 H Seg Neutrophils % 78.4 H Seg Neuts % (Manual) Lymphocytes % (Manual) Monocytes % (Manual) Basophils % (Manual) Seg Neutrophils # 8.5 H Seg Neutrophils # Man Lymphocytes # (Manual) Monocytes # (Manual) Eosinophils # (Manual) Basophils # (Manual) PT INR D-Dimer ABG pH POC ABG pCO2 POC ABG pO2 ABG pO2 ABG HCO3 ABG O2 Saturation ABG Base Excess ABG Hemoglobin ABG Oxyhemoglobin ABG Potassium ABG Glucose Oxyhemoglobin Carboxyhemoglobin Sodium Potassium Chloride 97.0 L Carbon Dioxide 38 H BUN Creatinine < 0.2 L Glucose 138 H POC Glucose 130 H Calcium Ferritin Total Bilirubin Alkaline Phosphatase Lactate Dehydrogenase Total Creatine Kinase CK-MB (CK-2) Rel Index Troponin T C-Reactive Protein Total Protein Albumin Prealbumin LDL Cholesterol Direct HDL Cholesterol Arterial Blood Glucose Arterial Blood Ionized Calcium Urine WBC (Auto) 04/20/20 04/21/20 04/21/20 23:31 05:55 05:55 WBC RBC Hgb 10.0 L Hct 31.1 L MCV 82 L MCH 26 L RDW 17.0 H Plt Count 535 H Lymph % (Auto) [place] % (Auto) 9.2 H Lymph # (Auto) 1.1 L [place] # (Auto) Seg Neutrophils % 75.4 H Seg Neuts % (Manual) Lymphocytes % (Manual) Monocytes % (Manual) Basophils % (Manual) Seg Neutrophils # Seg Neutrophils # Man Lymphocytes # (Manual) Monocytes # (Manual) Eosinophils # (Manual) Basophils # (Manual) PT INR D-Dimer ABG pH POC ABG pCO2 POC ABG pO2 ABG pO2 ABG HCO3 ABG O2 Saturation ABG Base Excess ABG Hemoglobin ABG Oxyhemoglobin ABG Potassium ABG Glucose Oxyhemoglobin Carboxyhemoglobin Sodium Potassium Chloride 95.0 L Carbon Dioxide 34 H BUN Creatinine < 0.2 L Glucose 125 H POC Glucose 116 H Calcium Ferritin Total Bilirubin Alkaline Phosphatase Lactate Dehydrogenase Total Creatine Kinase CK-MB (CK-2) Rel Index Troponin T C-Reactive Protein Total Protein Albumin Prealbumin LDL Cholesterol Direct HDL Cholesterol Arterial Blood Glucose Arterial Blood Ionized Calcium Urine WBC (Auto) 04/22/20 04/22/20 04/22/20 00:01 07:45 07:45 WBC RBC Hgb 10.0 L Hct 30.7 L MCV 81 L MCH 27 L RDW 17.1 H Plt Count 490 H Lymph % (Auto) [place] % (Auto) Lymph # (Auto) [place] # (Auto) Seg Neutrophils % Seg Neuts % (Manual) 75.0 H Lymphocytes % (Manual) 11.0 L Monocytes % (Manual) 9.0 H Basophils % (Manual) Seg Neutrophils # Seg Neutrophils # Man Lymphocytes # (Manual) 0.8 L Monocytes # (Manual) Eosinophils # (Manual) Basophils # (Manual) PT INR D-Dimer ABG pH POC ABG pCO2 POC ABG pO2 ABG pO2 ABG HCO3 ABG O2 Saturation ABG Base Excess ABG Hemoglobin ABG Oxyhemoglobin ABG Potassium ABG Glucose Oxyhemoglobin Carboxyhemoglobin Sodium Potassium Chloride 96.3 L Carbon Dioxide 40 H BUN Creatinine < 0.2 L Glucose 109 H POC Glucose 110 H Calcium Ferritin Total Bilirubin Alkaline Phosphatase Lactate Dehydrogenase Total Creatine Kinase CK-MB (CK-2) Rel Index Troponin T C-Reactive Protein Total Protein Albumin Prealbumin LDL Cholesterol Direct HDL Cholesterol Arterial Blood Glucose Arterial Blood Ionized Calcium Urine WBC (Auto) 04/23/20 04/23/20 04/23/20 04:28 04:28 04:28 WBC RBC 3.64 L Hgb 9.7 L Hct 29.4 L MCV 81 L MCH 27 L RDW 17.2 H Plt Count 527 H Lymph % (Auto) [place] % (Auto) 8.9 H Lymph # (Auto) [place] # (Auto) Seg Neutrophils % Seg Neuts % (Manual) Lymphocytes % (Manual) Monocytes % (Manual) Basophils % (Manual) Seg Neutrophils # Seg Neutrophils # Man Lymphocytes # (Manual) Monocytes # (Manual) Eosinophils # (Manual) Basophils # (Manual) PT INR D-Dimer ABG pH POC ABG pCO2 POC ABG pO2 ABG pO2 ABG HCO3 ABG O2 Saturation ABG Base Excess ABG Hemoglobin ABG Oxyhemoglobin ABG Potassium ABG Glucose Oxyhemoglobin Carboxyhemoglobin Sodium Potassium Chloride 96.4 L Carbon Dioxide 32 H D BUN Creatinine < 0.2 L Glucose 134 H POC Glucose Calcium Ferritin Total Bilirubin Alkaline Phosphatase Lactate Dehydrogenase Total Creatine Kinase CK-MB (CK-2) Rel Index Troponin T 0.151 H* C-Reactive Protein Total Protein Albumin Prealbumin LDL Cholesterol Direct HDL Cholesterol 29 L Arterial Blood Glucose Arterial Blood Ionized Calcium Urine WBC (Auto) 04/23/20 04/23/20 04/24/20 06:03 23:41 05:28 WBC RBC 3.56 L Hgb 9.5 L Hct 28.9 L MCV 81 L MCH 27 L RDW 17.4 H Plt Count 462 H Lymph % (Auto) [place] % (Auto) Lymph # (Auto) [place] # (Auto) Seg Neutrophils % Seg Neuts % (Manual) 80.0 H Lymphocytes % (Manual) Monocytes % (Manual) Basophils % (Manual) Seg Neutrophils # Seg Neutrophils # Man Lymphocytes # (Manual) Monocytes # (Manual) Eosinophils # (Manual) Basophils # (Manual) PT INR D-Dimer ABG pH POC ABG pCO2 POC ABG pO2 ABG pO2 ABG HCO3 ABG O2 Saturation ABG Base Excess ABG Hemoglobin ABG Oxyhemoglobin ABG Potassium ABG Glucose Oxyhemoglobin Carboxyhemoglobin Sodium Potassium Chloride Carbon Dioxide BUN Creatinine Glucose POC Glucose 132 H 117 H Calcium Ferritin Total Bilirubin Alkaline Phosphatase Lactate Dehydrogenase Total Creatine Kinase CK-MB (CK-2) Rel Index Troponin T C-Reactive Protein Total Protein Albumin Prealbumin LDL Cholesterol Direct HDL Cholesterol Arterial Blood Glucose Arterial Blood Ionized Calcium Urine WBC (Auto) 04/24/20 04/24/20 04/24/20 05:28 05:28 05:33 WBC RBC Hgb Hct MCV MCH RDW Plt Count Lymph % (Auto) [place] % (Auto) Lymph # (Auto) [place] # (Auto) Seg Neutrophils % Seg Neuts % (Manual) Lymphocytes % (Manual) Monocytes % (Manual) Basophils % (Manual) Seg Neutrophils # Seg Neutrophils # Man Lymphocytes # (Manual) Monocytes # (Manual) Eosinophils # (Manual) Basophils # (Manual) PT INR D-Dimer ABG pH POC ABG pCO2 POC ABG pO2 ABG pO2 ABG HCO3 ABG O2 Saturation ABG Base Excess ABG Hemoglobin ABG Oxyhemoglobin ABG Potassium ABG Glucose Oxyhemoglobin Carboxyhemoglobin Sodium Potassium Chloride 96.1 L Carbon Dioxide 40 H D BUN Creatinine < 0.2 L Glucose 115 H POC Glucose 109 H Calcium Ferritin Total Bilirubin Alkaline Phosphatase Lactate Dehydrogenase Total Creatine Kinase CK-MB (CK-2) Rel Index Troponin T 0.181 H* C-Reactive Protein Total Protein Albumin Prealbumin LDL Cholesterol Direct HDL Cholesterol Arterial Blood Glucose Arterial Blood Ionized Calcium Urine WBC (Auto) 04/24/20 04/24/20 04/25/20 11:17 18:23 00:12 WBC RBC Hgb Hct MCV MCH RDW Plt Count Lymph % (Auto) [place] % (Auto) Lymph # (Auto) [place] # (Auto) Seg Neutrophils % Seg Neuts % (Manual) Lymphocytes % (Manual) Monocytes % (Manual) Basophils % (Manual) Seg Neutrophils # Seg Neutrophils # Man Lymphocytes # (Manual) Monocytes # (Manual) Eosinophils # (Manual) Basophils # (Manual) PT INR D-Dimer ABG pH POC ABG pCO2 POC ABG pO2 ABG pO2 ABG HCO3 ABG O2 Saturation ABG Base Excess ABG Hemoglobin ABG Oxyhemoglobin ABG Potassium ABG Glucose Oxyhemoglobin Carboxyhemoglobin Sodium Potassium Chloride Carbon Dioxide BUN Creatinine Glucose POC Glucose 117 H 109 H 113 H Calcium Ferritin Total Bilirubin Alkaline Phosphatase Lactate Dehydrogenase Total Creatine Kinase CK-MB (CK-2) Rel Index Troponin T C-Reactive Protein Total Protein Albumin Prealbumin LDL Cholesterol Direct HDL Cholesterol Arterial Blood Glucose Arterial Blood Ionized Calcium Urine WBC (Auto) 04/25/20 04/25/20 04/25/20 06:34 06:34 11:28 WBC 11.7 H RBC Hgb 10.0 L Hct 31.7 L MCV 82 L MCH 26 L RDW 17.5 H Plt Count 564 H Lymph % (Auto) [place] % (Auto) Lymph # (Auto) [place] # (Auto) Seg Neutrophils % Seg Neuts % (Manual) 78.0 H Lymphocytes % (Manual) 10.0 L Monocytes % (Manual) 9.0 H Basophils % (Manual) Seg Neutrophils # Seg Neutrophils # Man 9.1 H Lymphocytes # (Manual) Monocytes # (Manual) 1.1 H Eosinophils # (Manual) Basophils # (Manual) PT INR D-Dimer ABG pH POC ABG pCO2 POC ABG pO2 ABG pO2 ABG HCO3 ABG O2 Saturation ABG Base Excess ABG Hemoglobin ABG Oxyhemoglobin ABG Potassium ABG Glucose Oxyhemoglobin Carboxyhemoglobin Sodium Potassium Chloride Carbon Dioxide 39 H BUN Creatinine < 0.2 L Glucose 103 H POC Glucose 112 H Calcium Ferritin Total Bilirubin Alkaline Phosphatase Lactate Dehydrogenase Total Creatine Kinase CK-MB (CK-2) Rel Index Troponin T C-Reactive Protein Total Protein Albumin Prealbumin LDL Cholesterol Direct HDL Cholesterol Arterial Blood Glucose Arterial Blood Ionized Calcium Urine WBC (Auto) 04/27/20 04/27/20 04/27/20 11:48 17:08 23:31 WBC RBC Hgb Hct MCV MCH RDW Plt Count Lymph % (Auto) [place] % (Auto) Lymph # (Auto) [place] # (Auto) Seg Neutrophils % Seg Neuts % (Manual) Lymphocytes % (Manual) Monocytes % (Manual) Basophils % (Manual) Seg Neutrophils # Seg Neutrophils # Man Lymphocytes # (Manual) Monocytes # (Manual) Eosinophils # (Manual) Basophils # (Manual) PT INR D-Dimer ABG pH POC ABG pCO2 POC ABG pO2 ABG pO2 ABG HCO3 ABG O2 Saturation ABG Base Excess ABG Hemoglobin ABG Oxyhemoglobin ABG Potassium ABG Glucose Oxyhemoglobin Carboxyhemoglobin Sodium Potassium Chloride Carbon Dioxide BUN Creatinine Glucose POC Glucose 124 H 118 H 122 H Calcium Ferritin Total Bilirubin Alkaline Phosphatase Lactate Dehydrogenase Total Creatine Kinase CK-MB (CK-2) Rel Index Troponin T C-Reactive Protein Total Protein Albumin Prealbumin LDL Cholesterol Direct HDL Cholesterol Arterial Blood Glucose Arterial Blood Ionized Calcium Urine WBC (Auto) 04/28/20 04/29/20 04/29/20 05:42 00:14 05:30 WBC RBC Hgb Hct MCV MCH RDW Plt Count Lymph % (Auto) [place] % (Auto) Lymph # (Auto) [place] # (Auto) Seg Neutrophils % Seg Neuts % (Manual) Lymphocytes % (Manual) Monocytes % (Manual) Basophils % (Manual) Seg Neutrophils # Seg Neutrophils # Man Lymphocytes # (Manual) Monocytes # (Manual) Eosinophils # (Manual) Basophils # (Manual) PT INR D-Dimer ABG pH POC ABG pCO2 POC ABG pO2 ABG pO2 ABG HCO3 ABG O2 Saturation ABG Base Excess ABG Hemoglobin ABG Oxyhemoglobin ABG Potassium ABG Glucose Oxyhemoglobin Carboxyhemoglobin Sodium Potassium Chloride Carbon Dioxide BUN Creatinine Glucose POC Glucose 122 H 115 H 123 H Calcium Ferritin Total Bilirubin Alkaline Phosphatase Lactate Dehydrogenase Total Creatine Kinase CK-MB (CK-2) Rel Index Troponin T C-Reactive Protein Total Protein Albumin Prealbumin LDL Cholesterol Direct HDL Cholesterol Arterial Blood Glucose Arterial Blood Ionized Calcium Urine WBC (Auto) 04/30/20 05/01/20 05/01/20 00:29 05:39 12:30 WBC RBC Hgb Hct MCV MCH RDW Plt Count Lymph % (Auto) [place] % (Auto) Lymph # (Auto) [place] # (Auto) Seg Neutrophils % Seg Neuts % (Manual) Lymphocytes % (Manual) Monocytes % (Manual) Basophils % (Manual) Seg Neutrophils # Seg Neutrophils # Man Lymphocytes # (Manual) Monocytes # (Manual) Eosinophils # (Manual) Basophils # (Manual) PT INR D-Dimer ABG pH POC ABG pCO2 POC ABG pO2 ABG pO2 ABG HCO3 ABG O2 Saturation ABG Base Excess ABG Hemoglobin ABG Oxyhemoglobin ABG Potassium ABG Glucose Oxyhemoglobin Carboxyhemoglobin Sodium Potassium Chloride Carbon Dioxide BUN Creatinine Glucose POC Glucose 106 H 109 H 108 H Calcium Ferritin Total Bilirubin Alkaline Phosphatase Lactate Dehydrogenase Total Creatine Kinase CK-MB (CK-2) Rel Index Troponin T C-Reactive Protein Total Protein Albumin Prealbumin LDL Cholesterol Direct HDL Cholesterol Arterial Blood Glucose Arterial Blood Ionized Calcium Urine WBC (Auto) 05/01/20 05/03/20 05/03/20 23:35 05:09 11:36 WBC RBC Hgb Hct MCV MCH RDW Plt Count Lymph % (Auto) [place] % (Auto) Lymph # (Auto) [place] # (Auto) Seg Neutrophils % Seg Neuts % (Manual) Lymphocytes % (Manual) Monocytes % (Manual) Basophils % (Manual) Seg Neutrophils # Seg Neutrophils # Man Lymphocytes # (Manual) Monocytes # (Manual) Eosinophils # (Manual) Basophils # (Manual) PT INR D-Dimer ABG pH POC ABG pCO2 POC ABG pO2 ABG pO2 ABG HCO3 ABG O2 Saturation ABG Base Excess ABG Hemoglobin ABG Oxyhemoglobin ABG Potassium ABG Glucose Oxyhemoglobin Carboxyhemoglobin Sodium Potassium Chloride Carbon Dioxide BUN Creatinine Glucose POC Glucose 116 H 117 H 116 H Calcium Ferritin Total Bilirubin Alkaline Phosphatase Lactate Dehydrogenase Total Creatine Kinase CK-MB (CK-2) Rel Index Troponin T C-Reactive Protein Total Protein Albumin Prealbumin LDL Cholesterol Direct HDL Cholesterol Arterial Blood Glucose Arterial Blood Ionized Calcium Urine WBC (Auto) 05/03/20 05/03/20 05/03/20 14:06 14:06 23:39 WBC 12.5 H RBC Hgb 10.0 L Hct 31.2 L MCV 80 L MCH 26 L RDW 17.6 H Plt Count 488 H Lymph % (Auto) [place] % (Auto) Lymph # (Auto) [place] # (Auto) Seg Neutrophils % Seg Neuts % (Manual) Lymphocytes % (Manual) Monocytes % (Manual) Basophils % (Manual) Seg Neutrophils # Seg Neutrophils # Man Lymphocytes # (Manual) Monocytes # (Manual) Eosinophils # (Manual) Basophils # (Manual) PT INR D-Dimer ABG pH POC ABG pCO2 POC ABG pO2 ABG pO2 ABG HCO3 ABG O2 Saturation ABG Base Excess ABG Hemoglobin ABG Oxyhemoglobin ABG Potassium ABG Glucose Oxyhemoglobin Carboxyhemoglobin Sodium Potassium Chloride 95.4 L Carbon Dioxide 40 H BUN Creatinine < 0.2 L Glucose 121 H POC Glucose 107 H Calcium Ferritin Total Bilirubin Alkaline Phosphatase Lactate Dehydrogenase Total Creatine Kinase CK-MB (CK-2) Rel Index Troponin T C-Reactive Protein Total Protein Albumin Prealbumin LDL Cholesterol Direct HDL Cholesterol Arterial Blood Glucose Arterial Blood Ionized Calcium Urine WBC (Auto) 05/04/20 05/04/20 05/04/20 11:31 16:57 23:18 WBC RBC Hgb Hct MCV MCH RDW Plt Count Lymph % (Auto) [place] % (Auto) Lymph # (Auto) [place] # (Auto) Seg Neutrophils % Seg Neuts % (Manual) Lymphocytes % (Manual) Monocytes % (Manual) Basophils % (Manual) Seg Neutrophils # Seg Neutrophils # Man Lymphocytes # (Manual) Monocytes # (Manual) Eosinophils # (Manual) Basophils # (Manual) PT INR D-Dimer ABG pH POC ABG pCO2 POC ABG pO2 ABG pO2 ABG HCO3 ABG O2 Saturation ABG Base Excess ABG Hemoglobin ABG Oxyhemoglobin ABG Potassium ABG Glucose Oxyhemoglobin Carboxyhemoglobin Sodium Potassium Chloride Carbon Dioxide BUN Creatinine Glucose POC Glucose 113 H 126 H 126 H Calcium Ferritin Total Bilirubin Alkaline Phosphatase Lactate Dehydrogenase Total Creatine Kinase CK-MB (CK-2) Rel Index Troponin T C-Reactive Protein Total Protein Albumin Prealbumin LDL Cholesterol Direct HDL Cholesterol Arterial Blood Glucose Arterial Blood Ionized Calcium Urine WBC (Auto) 05/05/20 05/05/20 05/05/20 05:32 11:11 23:57 WBC RBC Hgb Hct MCV MCH RDW Plt Count Lymph % (Auto) [place] % (Auto) Lymph # (Auto) [place] # (Auto) Seg Neutrophils % Seg Neuts % (Manual) Lymphocytes % (Manual) Monocytes % (Manual) Basophils % (Manual) Seg Neutrophils # Seg Neutrophils # Man Lymphocytes # (Manual) Monocytes # (Manual) Eosinophils # (Manual) Basophils # (Manual) PT INR D-Dimer ABG pH POC ABG pCO2 POC ABG pO2 ABG pO2 ABG HCO3 ABG O2 Saturation ABG Base Excess ABG Hemoglobin ABG Oxyhemoglobin ABG Potassium ABG Glucose Oxyhemoglobin Carboxyhemoglobin Sodium Potassium Chloride Carbon Dioxide BUN Creatinine Glucose POC Glucose 109 H 124 H 119 H Calcium Ferritin Total Bilirubin Alkaline Phosphatase Lactate Dehydrogenase Total Creatine Kinase CK-MB (CK-2) Rel Index Troponin T C-Reactive Protein Total Protein Albumin Prealbumin LDL Cholesterol Direct HDL Cholesterol Arterial Blood Glucose Arterial Blood Ionized Calcium Urine WBC (Auto) 05/06/20 05/06/20 05/07/20 05:34 23:08 04:43 WBC RBC Hgb 10.1 L Hct 31.9 L MCV 81 L MCH 25 L RDW 17.6 H Plt Count 506 H Lymph % (Auto) [place] % (Auto) 8.6 H Lymph # (Auto) [place] # (Auto) 0.9 H Seg Neutrophils % Seg Neuts % (Manual) Lymphocytes % (Manual) Monocytes % (Manual) Basophils % (Manual) Seg Neutrophils # Seg Neutrophils # Man Lymphocytes # (Manual) Monocytes # (Manual) Eosinophils # (Manual) Basophils # (Manual) PT INR D-Dimer ABG pH POC ABG pCO2 POC ABG pO2 ABG pO2 ABG HCO3 ABG O2 Saturation ABG Base Excess ABG Hemoglobin ABG Oxyhemoglobin ABG Potassium ABG Glucose Oxyhemoglobin Carboxyhemoglobin Sodium Potassium Chloride Carbon Dioxide BUN Creatinine Glucose POC Glucose 121 H 107 H Calcium Ferritin Total Bilirubin Alkaline Phosphatase Lactate Dehydrogenase Total Creatine Kinase CK-MB (CK-2) Rel Index Troponin T C-Reactive Protein Total Protein Albumin Prealbumin LDL Cholesterol Direct HDL Cholesterol Arterial Blood Glucose Arterial Blood Ionized Calcium Urine WBC (Auto) 05/07/20 05/07/20 05/07/20 06:18 17:13 23:29 WBC RBC Hgb Hct MCV MCH RDW Plt Count Lymph % (Auto) [place] % (Auto) Lymph # (Auto) [place] # (Auto) Seg Neutrophils % Seg Neuts % (Manual) Lymphocytes % (Manual) Monocytes % (Manual) Basophils % (Manual) Seg Neutrophils # Seg Neutrophils # Man Lymphocytes # (Manual) Monocytes # (Manual) Eosinophils # (Manual) Basophils # (Manual) PT INR D-Dimer ABG pH POC ABG pCO2 POC ABG pO2 ABG pO2 ABG HCO3 ABG O2 Saturation ABG Base Excess ABG Hemoglobin ABG Oxyhemoglobin ABG Potassium ABG Glucose Oxyhemoglobin Carboxyhemoglobin Sodium Potassium Chloride Carbon Dioxide BUN Creatinine Glucose POC Glucose 121 H 122 H 114 H Calcium Ferritin Total Bilirubin Alkaline Phosphatase Lactate Dehydrogenase Total Creatine Kinase CK-MB (CK-2) Rel Index Troponin T C-Reactive Protein Total Protein Albumin Prealbumin LDL Cholesterol Direct HDL Cholesterol Arterial Blood Glucose Arterial Blood Ionized Calcium Urine WBC (Auto) 05/08/20 05/08/20 05/08/20 05:20 11:57 23:42 WBC RBC Hgb Hct MCV MCH RDW Plt Count Lymph % (Auto) [place] % (Auto) Lymph # (Auto) [place] # (Auto) Seg Neutrophils % Seg Neuts % (Manual) Lymphocytes % (Manual) Monocytes % (Manual) Basophils % (Manual) Seg Neutrophils # Seg Neutrophils # Man Lymphocytes # (Manual) Monocytes # (Manual) Eosinophils # (Manual) Basophils # (Manual) PT INR D-Dimer ABG pH POC ABG pCO2 POC ABG pO2 ABG pO2 ABG HCO3 ABG O2 Saturation ABG Base Excess ABG Hemoglobin ABG Oxyhemoglobin ABG Potassium ABG Glucose Oxyhemoglobin Carboxyhemoglobin Sodium Potassium Chloride Carbon Dioxide BUN Creatinine Glucose POC Glucose 121 H 113 H 135 H Calcium Ferritin Total Bilirubin Alkaline Phosphatase Lactate Dehydrogenase Total Creatine Kinase CK-MB (CK-2) Rel Index Troponin T C-Reactive Protein Total Protein Albumin Prealbumin LDL Cholesterol Direct HDL Cholesterol Arterial Blood Glucose Arterial Blood Ionized Calcium Urine WBC (Auto) 05/09/20 05/09/20 05/09/20 05:31 11:11 16:06 WBC RBC Hgb Hct MCV MCH RDW Plt Count Lymph % (Auto) [place] % (Auto) Lymph # (Auto) [place] # (Auto) Seg Neutrophils % Seg Neuts % (Manual) Lymphocytes % (Manual) Monocytes % (Manual) Basophils % (Manual) Seg Neutrophils # Seg Neutrophils # Man Lymphocytes # (Manual) Monocytes # (Manual) Eosinophils # (Manual) Basophils # (Manual) PT INR D-Dimer ABG pH POC ABG pCO2 POC ABG pO2 ABG pO2 ABG HCO3 ABG O2 Saturation ABG Base Excess ABG Hemoglobin ABG Oxyhemoglobin ABG Potassium ABG Glucose Oxyhemoglobin Carboxyhemoglobin Sodium 136 L Potassium Chloride 97.0 L Carbon Dioxide 34 H BUN Creatinine < 0.2 L Glucose 107 H POC Glucose 66 L 127 H Calcium Ferritin Total Bilirubin Alkaline Phosphatase Lactate Dehydrogenase Total Creatine Kinase CK-MB (CK-2) Rel Index Troponin T C-Reactive Protein Total Protein Albumin Prealbumin LDL Cholesterol Direct HDL Cholesterol Arterial Blood Glucose Arterial Blood Ionized Calcium Urine WBC (Auto) 05/09/20 05/10/20 05/10/20 23:19 04:59 11:28 WBC RBC Hgb Hct MCV MCH RDW Plt Count Lymph % (Auto) [place] % (Auto) Lymph # (Auto) [place] # (Auto) Seg Neutrophils % Seg Neuts % (Manual) Lymphocytes % (Manual) Monocytes % (Manual) Basophils % (Manual) Seg Neutrophils # Seg Neutrophils # Man Lymphocytes # (Manual) Monocytes # (Manual) Eosinophils # (Manual) Basophils # (Manual) PT INR D-Dimer ABG pH POC ABG pCO2 POC ABG pO2 ABG pO2 ABG HCO3 ABG O2 Saturation ABG Base Excess ABG Hemoglobin ABG Oxyhemoglobin ABG Potassium ABG Glucose Oxyhemoglobin Carboxyhemoglobin Sodium Potassium Chloride Carbon Dioxide BUN Creatinine Glucose POC Glucose 108 H 126 H 124 H Calcium Ferritin Total Bilirubin Alkaline Phosphatase Lactate Dehydrogenase Total Creatine Kinase CK-MB (CK-2) Rel Index Troponin T C-Reactive Protein Total Protein Albumin Prealbumin LDL Cholesterol Direct HDL Cholesterol Arterial Blood Glucose Arterial Blood Ionized Calcium Urine WBC (Auto) 05/10/20 05/11/20 05/11/20 23:56 06:13 11:44 WBC RBC Hgb Hct MCV MCH RDW Plt Count Lymph % (Auto) [place] % (Auto) Lymph # (Auto) [place] # (Auto) Seg Neutrophils % Seg Neuts % (Manual) Lymphocytes % (Manual) Monocytes % (Manual) Basophils % (Manual) Seg Neutrophils # Seg Neutrophils # Man Lymphocytes # (Manual) Monocytes # (Manual) Eosinophils # (Manual) Basophils # (Manual) PT INR D-Dimer ABG pH POC ABG pCO2 POC ABG pO2 ABG pO2 ABG HCO3 ABG O2 Saturation ABG Base Excess ABG Hemoglobin ABG Oxyhemoglobin ABG Potassium ABG Glucose Oxyhemoglobin Carboxyhemoglobin Sodium Potassium Chloride Carbon Dioxide BUN Creatinine Glucose POC Glucose 113 H 124 H 125 H Calcium Ferritin Total Bilirubin Alkaline Phosphatase Lactate Dehydrogenase Total Creatine Kinase CK-MB (CK-2) Rel Index Troponin T C-Reactive Protein Total Protein Albumin Prealbumin LDL Cholesterol Direct HDL Cholesterol Arterial Blood Glucose Arterial Blood Ionized Calcium Urine WBC (Auto) 05/12/20 05/12/20 05/12/20 06:04 12:17 17:23 WBC RBC Hgb Hct MCV MCH RDW Plt Count Lymph % (Auto) [place] % (Auto) Lymph # (Auto) [place] # (Auto) Seg Neutrophils % Seg Neuts % (Manual) Lymphocytes % (Manual) Monocytes % (Manual) Basophils % (Manual) Seg Neutrophils # Seg Neutrophils # Man Lymphocytes # (Manual) Monocytes # (Manual) Eosinophils # (Manual) Basophils # (Manual) PT INR D-Dimer ABG pH POC ABG pCO2 POC ABG pO2 ABG pO2 ABG HCO3 ABG O2 Saturation ABG Base Excess ABG Hemoglobin ABG Oxyhemoglobin ABG Potassium ABG Glucose Oxyhemoglobin Carboxyhemoglobin Sodium Potassium Chloride Carbon Dioxide BUN Creatinine Glucose POC Glucose 135 H 136 H 133 H Calcium Ferritin Total Bilirubin Alkaline Phosphatase Lactate Dehydrogenase Total Creatine Kinase CK-MB (CK-2) Rel Index Troponin T C-Reactive Protein Total Protein Albumin Prealbumin LDL Cholesterol Direct HDL Cholesterol Arterial Blood Glucose Arterial Blood Ionized Calcium Urine WBC (Auto) 05/12/20 05/13/20 05/13/20 23:34 05:36 11:25 WBC RBC Hgb Hct MCV MCH RDW Plt Count Lymph % (Auto) [place] % (Auto) Lymph # (Auto) [place] # (Auto) Seg Neutrophils % Seg Neuts % (Manual) Lymphocytes % (Manual) Monocytes % (Manual) Basophils % (Manual) Seg Neutrophils # Seg Neutrophils # Man Lymphocytes # (Manual) Monocytes # (Manual) Eosinophils # (Manual) Basophils # (Manual) PT INR D-Dimer ABG pH POC ABG pCO2 POC ABG pO2 ABG pO2 ABG HCO3 ABG O2 Saturation ABG Base Excess ABG Hemoglobin ABG Oxyhemoglobin ABG Potassium ABG Glucose Oxyhemoglobin Carboxyhemoglobin Sodium Potassium Chloride Carbon Dioxide BUN Creatinine Glucose POC Glucose 141 H 131 H 148 H Calcium Ferritin Total Bilirubin Alkaline Phosphatase Lactate Dehydrogenase Total Creatine Kinase CK-MB (CK-2) Rel Index Troponin T C-Reactive Protein Total Protein Albumin Prealbumin LDL Cholesterol Direct HDL Cholesterol Arterial Blood Glucose Arterial Blood Ionized Calcium Urine WBC (Auto) 05/13/20 05/14/20 05/14/20 16:40 00:11 05:03 WBC RBC Hgb Hct MCV MCH RDW Plt Count Lymph % (Auto) [place] % (Auto) Lymph # (Auto) [place] # (Auto) Seg Neutrophils % Seg Neuts % (Manual) Lymphocytes % (Manual) Monocytes % (Manual) Basophils % (Manual) Seg Neutrophils # Seg Neutrophils # Man Lymphocytes # (Manual) Monocytes # (Manual) Eosinophils # (Manual) Basophils # (Manual) PT INR D-Dimer ABG pH POC ABG pCO2 POC ABG pO2 ABG pO2 ABG HCO3 ABG O2 Saturation ABG Base Excess ABG Hemoglobin ABG Oxyhemoglobin ABG Potassium ABG Glucose Oxyhemoglobin Carboxyhemoglobin Sodium Potassium Chloride Carbon Dioxide BUN Creatinine Glucose POC Glucose 118 H 128 H 129 H Calcium Ferritin Total Bilirubin Alkaline Phosphatase Lactate Dehydrogenase Total Creatine Kinase CK-MB (CK-2) Rel Index Troponin T C-Reactive Protein Total Protein Albumin Prealbumin LDL Cholesterol Direct HDL Cholesterol Arterial Blood Glucose Arterial Blood Ionized Calcium Urine WBC (Auto) 05/14/20 11:38 WBC RBC Hgb Hct MCV MCH RDW Plt Count Lymph % (Auto) [place] % (Auto) Lymph # (Auto) [place] # (Auto) Seg Neutrophils % Seg Neuts % (Manual) Lymphocytes % (Manual) Monocytes % (Manual) Basophils % (Manual) Seg Neutrophils # Seg Neutrophils # Man Lymphocytes # (Manual) Monocytes # (Manual) Eosinophils # (Manual) Basophils # (Manual) PT INR D-Dimer ABG pH POC ABG pCO2 POC ABG pO2 ABG pO2 ABG HCO3 ABG O2 Saturation ABG Base Excess ABG Hemoglobin ABG Oxyhemoglobin ABG Potassium ABG Glucose Oxyhemoglobin Carboxyhemoglobin Sodium Potassium Chloride Carbon Dioxide BUN Creatinine Glucose POC Glucose 134 H Calcium Ferritin Total Bilirubin Alkaline Phosphatase Lactate Dehydrogenase Total Creatine Kinase CK-MB (CK-2) Rel Index Troponin T C-Reactive Protein Total Protein Albumin Prealbumin LDL Cholesterol Direct HDL Cholesterol Arterial Blood Glucose Arterial Blood Ionized Calcium Urine WBC (Auto) Chest x-ray: report reviewed, image reviewed Additional Studies: CHEST 1 VIEW 05/11/20 INDICATION: Follow up on pleural effusion.. COMPARISON: 05/02/2020 FINDINGS: Support devices: Tracheostomy remains in the same position. Heart: Within normal limits. Lungs/Pleura: Hazy opacity in the right infrahilar region has decreased by 25% since the previous exam. I suspect this represents partial atelectasis in the right lower lobe and not pleural effusion. The right upper lung and left lung are clear. No pneumothorax. Additional findings: None. IMPRESSION: Mild interval improvement in the hazy opacity at the right lung base as described. I suspect this represents an improving atelectasis over effusion. Allied health notes reviewed: nursing
--- NOTE | 2020-05-15 14:30 | Progress Note ---
Assessment and Plan --Acute hypoxic hypercapnic respiratory failure; Intubated on mechanical ventilation. Etiology secondary to sepsis, ALS, multifocal pneumonia (Covid negative). S/p trach placement 03/07/20 --Status post cardiac arrest on 02/25, cardiac hernandez now stable --Dysphagia, status post PEG placement for tube feeding --ALS; Chronic Continue to provide supportive care --Elevated D-dimers; CTA chest, lower extremity venous Doppler both are negative Lovenox for DVT prophylaxis --Bilateral pneumonia; probably community-acquired Completed treatment ID recommendations appreciated --Sepsis secondary to pneumonia s/p empiric antibiotic --Elevated troponin; Serial cardiac enzymes, serial EKGs Echocardiogram, cardiology consult if needed --Hypernatremia Trend sodium Free water via feeding tube --Abdominal distention due to bladder outlet obstruction, resolved CT abdomen showed bladder outlet obstruction, urology consulted s/p drake placement by urology on 03/09 --Hypotension possibly from septic shock and bladder outlet obstruction improved following placing drake --Hypernatremia due to hypovolumia, resolved free water with TF --Constipation; Patient already received Dulcolax suppository and Colace Received milk of magnesia, with relief --DVT prophylaxis; Lovenox Brief history: 59-year-old male patient with significant past medical history of ALS, presented to ED with worsening shortness of breath since the morning FEED MIXER. Patient was on a trilogy machine for breathing 18/11. EMS arrived, patient had O2 sats in the 80s. EMS attempted to place patient on their CPAP machine, however patient did not tolerate. Patient was admitted to the ICU with diagnosis of acute hypoxic respiratory failure and placed on BiPAP. Patient initially tolerated but later deteriorated with respiratory status. CTA chest showed no PE but significant for bilateral pneumonia. Doppler ultrasound also negative for DVT. COVID-19 test ordered and negative. Due to persistent hypoxia and asystolic/V. fib cardiac arrest, patient was intubated on 02/26/2020 at 1500. Patient now on mechanical ventilation in the ICU s/p trach placement and now unable to wean off from the mechanical ventilation. Patient now status post PEG placement for tube feeding. Patient most likely need long-term placement -LTAC versus SNF Daily course: 02/25/2020. CTA of the chest reveals no PE but does illustrate the bilateral pneumonia. Doppler ultrasound also negative for DVT. Blood cultures are pe nding. Await COVID-19 testing. Patient currently requiring BiPAP IPAP 24/EPAP 6 with FiO2 of 25%. Continue O2 and BiPAP as clinically indicated. ID and pulmonary consulted. 02/26/2020. Blood cultures are negative x48 hours and Covid testing negative as well. Continue antibiotics per ID recommendations for community-acquired bilateral pneumonia. Cardiology consultation for elevated troponin. Check echocardiogram. 02/27/2020. Events of yesterday noted with asystole following V. fib arrest. Patient currently on AC mode rate 20, tidal volume 400, FiO2 50% and a PEEP of 6. Follow-up echocardiogram for elevated troponin. Cardiology suspects NSTEMI Type 2 in the setting of acute resp failure. Chest CTA and BLE Dopplers neg. we will discontinue Decadron given the Covid PCR is negative. 02/28/2020. I spoke with the sister Felisa Eli who is the power of pega developer regarding advanced directives and she instructed me that she would like to continue with aggressive care at this time. I informed her of the guarded prognosis and high mortality/morbidity and she voiced understanding. Patient currently with AC mode ventilation rate 18, tidal volume 400, FiO2 40% and a PEEP of 6. Continue antibiotics for pneumonia. ID previously consulted. Also consult neurology with regards to ALS. 02/29/2020; patient is intubated and on CPAP patient is alert and oriented. Patient has ALS. Dr. Álvarez spoke with his sister and she wants aggressive care. Continue antibiotics for pneumonia. Neurology consulted for ALS. Prognosis poor 03/01/2020; patient is intubated and on CPAP, patient is alert and oriented. I spoke with his 2 sisters about the management plan. 03/02/2020; patient is intubated and on CPAP. Patient was alert and oriented. I spoke with Dr. mohr and he thinks patient may need mechanical ventilation, likely his disease progressed. Dr. Flowers did debridement this morning. 03/03/2020; patient is intubated and on CPAP, patient was on trilogy and BiPAP at home. Patient has ALS. on spontaneous breathing trial. Patient is alert and oriented but quadriplegic. Patient has severe bilateral pneumonia and is on cefepime and Vanco, ID is following. Patient has sacral decubitus ulcer and debridement was done by Dr. Flowers and there is no osteomyelitis. 03/05. Patient still on broad-spectrum antibiotics. Status post sacral decubitus ulcer debridements-no osteomyelitis. Patient is on AC 25/400/30% PEEP 5. No blood gas results today. 03/06. Plan for tracheostomy by surgery. Still remains intubated. Labs reviewed-sodium 150. Started on free water 200 every 8hr. trend sodium. 03/07: s/p trach placement today, patient placed back on mechanical ventilation with trach. Plan to resume tube feeding with NG tube. Continue to monitor vitals, monitor BMP. 03/08: Patient noted to have distended abdomen with low urinary output. Obtain bladder scan rule out urine retention, UA and urine culture, continue to follow clinically. 03/09: Patient noted to have low blood pressure with SBP as low as 70s. Ordered for 500 mils normal saline bolus. CT abdomen showed bladder outlet obstruction, urology consulted. 03/10: placed on drake by urology o/n, improved urine outpt. cont to monitor BMP. resuded TF - cont free water with TF. wean off from vent as tolerated. 03/11: Vitals stable. cont TF, wean off from vent as tolerated. start on 1/2 NS for hypernatremia - follow BMP 03/12: wean off vent as tolerated, plan for speech eval, cont Tf for now, cont iv fluid 03/13: unable to wean off from vent, unable to do speech therapy eval. will need PEG tube, cont supportive care for now, cont NG tube feeding 03/14: consulted GI for PEg placemnet, cont supportive care. remains on vent at night 03/15: Discussed with GI, plan for PEG tube placement possibly tomorrow. Continue supportive care and wean off from vent as tolerated. Hold Lovenox dose tonight. 03/16: family didnot consent for PEG placement yesterday. I spoke with the megan rodriguez today and she is now agreeable for PEG tube. I explained the necessity of the procedure with RN to the patient also and he nodded started on tube feeding, for the procedure. will cont supportive care. planned for PEG tube placement tomorrow. 03/17: s/p PEG placement today, patient tolerated well, cont supportive care 03/18: Started on tube feeding with new PEG tube, continue to wean off vent as tolerated 03/19: cont to monitor with supportive care, wean off vent as tolerated 03/20: Continue to wean off vent as tolerated -but failing weaning trial. Still requiring vent support at night. Currently on PEG tube for tube feed. 03/21. Pt with PSV trials with FiO@ 30%, PEEP 6, PS 10. Currently on PEG tube for tube feed. 03/22/2020. Continue PSV trials per pulmonary. Continue bronchodilators. Patient tolerating tube feedings. Continue Robinul for secretion control. 03/23/2020. Continue PSV trials per pulmonary. Continue bronchodilators. Continue Scopolamine and Robinul for secretion control. Trach care/airway management. Mobility protocols for pressure ulcer prophylaxis. LTAC evaluation per case management 03/24/2020. Continue PSV trials with current settings pressure support 10, PEEP 6 and FiO2 30%. Continue bronchodilators/nebulizer. Continue Scopolamine and Robinul for secretion control. Trach care/airway management. Mobility protocols for pressure ulcer prophylaxis. LTAC evaluation per case management 03/25/2020. Pulmonary to proceed with T-piece trials today. Continue bronchodilators/nebulizer. Continue Scopolamine and Robinul for secretion control. Trach care/airway management. Mobility protocols for pressure ulcer prophylaxis. 03/26/2020. Patient currently with PSV 10/6 at FiO2 of 30%. Continue weaning and T-piece trials per protocol. Continue bronchodilators/nebulizer. Continue Scopolamine and Robinul for secretion control. Trach care/airway management. Mobility protocols for pressure ulcer prophylaxis. Continue tube feeding with aspiration precautions. 03/27/2020. Patient currently with PSV 10/6 at FiO2 of 30%. Continue weaning and T-piece trials per protocol. Continue bronchodilators/nebulizer. Continue Scopolamine and Robinul for secretion control. Trach care/airway management. Mobility protocols for pressure ulcer prophylaxis. Continue tube feeding with aspiration precautions. 03/28. Had temp 100.7F. He has been off antibiotics. Will send blood culture, ua, urine culture and chest xray. Had chest pain overnight and trop was elevated as well. Cardiology to evaluate 03/29. Has back pain due to position. He mentions his chest pain is positional. Has no other complaints. Still on mechanical ventilation 03/30. No chest pain today. Labs reviewed. Discussed chest pain with cardiology and team advised no further work up at this time. Can follow up with cardiology in the office after hospitalization 03/31. Lidocaine patch for lower back pain. 04/01. Discharge planning underway. CM notes reviewed. Discussed with daughter 04/02. CM trying to arrange discharge. Continue PSV trials. Discussed with patients significant other 04/04/2020; CM is working for discharge arrangement. Continue PSV trials. 04/05/2020; patient was seen and evaluated this morning and no change from baseline. Continue with PSV trials. Follow with supervisor paper testing for discharge planning. 04/06/2020;patient was seen and evaluated this morning and no change from baseline. Continue with PSV trials. Follow with supervisor paper testing for discharge planning. 04/07/2020; patient was seen and evaluated this morning and no change from baseline. Continue with PSV trials. Follow with supervisor paper testing for discharge planning. 04/08/2020; patient is vent dependent. Discharge is per supervisor paper testing. 04/09/2020 patient is vent dependent, possible LTAC placement 04/10/2020; tracheostomy on vent, vent dependent pending LTAC placement 04/11/2020; clinically no change, tracheostomy on ventilatory support, wean as tolerated, awaiting placement 04/12/2020; remains on ventilatory support, unable to wean, patient wants to see a speech therapist for sound box However we cannot try that as long as he is on ventilatory support, once he is weaned off vent We will consult speech therapist, plan of care reviewed with the patient and his nurse 04/14/2020; clinically no change, on ventilatory support, complains of constipation, milk of magnesia Closely monitor the patient and adjust the management as needed 04/15/2020; patient has some oral thrush on the tongue, will give Magic mouthwash/nystatin swish and spit Wean off vent as tolerated 04/16 patient is alert and oriented, unable to comprehend what he is trying to tell but appears to complain of some pain, no acute events overnight, all interdisciplinary notes reviewed. Waiting for LTAC versus [facility] facility placement 04/17/2020. Continue supportive care with mechanical ventilation. Patient currently on AC mode rate 10, tidal volume 400 FiO2 30% with a PEEP of 6. Discharge planning per case management. 04/18/2020. Patient remains on mechanical ventilation AC mode rate 10, tidal volume 400, FiO2 30% and PEEP of 6. Continue spontaneous breathing trials as tolerated. Previously, patient was considered for discharge home with skilled staff providing care for 12 hours 7 days/week. Continue discussed with case management discharge planning. 04/19/20. Patient remains on mechanical ventilation AC mode rate 10, tidal volume 400, FiO2 30% and PEEP of 6. Continue spontaneous breathing trials as tolerated. 04/20/2020. Patient remains on mechanical ventilation AC mode rate 10, tidal volume 400, FiO2 30% and PEEP of 6. Continue spontaneous breathing trials as tolerated. 04/21/2020. Patient remains on mechanical ventilation AC mode rate 10, tidal volume 400, FiO2 30% and PEEP of 6. Continue tracheostomy care, secretion control and airway management. Continue spontaneous breathing trials as tolerated. 04/22/2020. Patient remains on mechanical ventilation AC mode rate 10, tidal volume 400, FiO2 30% and PEEP of 6. Continue tracheostomy care, secretion control and airway management. Continue spontaneous breathing trials as tolera milana. 04/23/2020. Patient on mechanical ventilation AC mode rate 18, tidal volume 450, FiO2 30% and PEEP of 6. Continue tracheostomy care, secretion control and airway management. Continue spontaneous breathing trials as tolerated. Continue Robinul and scopolamine for secretions. Continue baclofen. 04/24/2020. Patient remains on AC mode ventilation rate 10, tidal volume 400, FiO2 30% and PEEP of 6. Continue tracheostomy care, secretion control and airway management. Continue spontaneous breathing trials as tolerated. Continue Robinul and scopolamine for secretions. Continue baclofen. Continue Xanax for anxiety and Ambien for sleep. Await case management follow-up with regards to discharge planning. 04/25/2020. Patient remains on AC mode ventilation rate 10, tidal volume 400, FiO2 30% and PEEP of 6. Continue tracheostomy care, secretion control and airway management. Continue spontaneous breathing trials as tolerated. Continue Robinul and scopolamine for secretions. Continue baclofen. Continue Xanax for anxiety and Ambien for sleep. Await case management follow-up with regards to discharge planning. 04/26. Patient remains on AC mode ventilation rate 10, tidal volume 400, FiO2 30% and PEEP of 6. Continue tracheostomy care, secretion control and airway management. Continue spontaneous breathing trials as tolerated. Continue Robinul and scopolamine for secretions. Continue baclofen. Continue Xanax for anxiety and Ambien for sleep. Await case management follow-up with regards to discharge planning. 04/27. Patient remains on AC mode ventilation rate 10, tidal volume 400, FiO2 30% and PEEP of 6. Continue tracheostomy care, secretion control and airway management. Continue spontaneous breathing trials as tolerated. Continue Robinul and scopolamine for secretions. Continue baclofen. Continue Xanax for anxiety and Ambien for sleep. Await case management follow-up with regards to discharge planning. 04/28/20 no acute events overnight, remains vent dependent, cardiology and pulmonary notes reviewed 04/29 remains intubated via tracheostomy, no acute events 04/30 no acute events overnight, cardiology note reviewed, remains vent dependent, discharge planning per case management 05/01 stable. cardiology and pulmonary notes reviewed. D/C acu-checks 05/02 - todate: Clinically stable, CM working on placement. Continue supportive care. Subjective Date of service: 05/15/20 Principal diagnosis: Ac on Ch Hypercapnic & hypoxemic Resp Failure; Severe Sepsis; Jamar PNA; ALS Interval history: Patient seen and examined Remains on trach tube Discussed with RN at the bedside Vitals reviewed -BP stable Tolerating tube feeding with PEG tube Objective - Exam Narrative Exam: GENERAL: Awake. Intubated with trach tube HEAD: No signs of head trauma. EYES: Pupils are equal. Extraocular motions intact. EARS: Hearing grossly intact. MOUTH: Oropharynx is normal. NECK: No adenopathy, no JVD. CHEST: Coarse breath sounds bilaterally CARDIAC: Regular rate and rhythm. S1 and S2, without murmurs, gallops, or rubs. VASCULAR: No Edema. Peripheral pulses normal and equal in all extremities. ABDOMEN: Soft, non tender and nondistended. Bowel Sounds normal. PEG in place NEUROLOGIC EXAM: Awake, paraplegic SKIN: No obvious lesions - Constitutional Vitals: Vital Signs - 12hr 05/15/20 05/15/20 05/15/20 03:00 03:30 03:35 Temperature Pulse Rate 116 H Pulse Rate [ From Monitor] Respiratory 24 30 H Rate Respiratory 24 Rate [Back] Blood Pressure 101/86 O2 Sat by Pulse 95 Oximetry O2 Sat by Pulse Oximetry [ Assessment] 05/15/20 05/15/20 05/15/20 03:41 04:00 04:05 Temperature 98.3 F Pulse Rate 94 H Pulse Rate [ 94 H From Monitor] Respiratory 18 16 Rate Respiratory Rate [Back] Blood Pressure 101/86 O2 Sat by Pulse 91 Oximetry O2 Sat by Pulse Oximetry [ Assessment] 05/15/20 05/15/20 05/15/20 04:34 04:38 04:43 Temperature Pulse Rate 96 H 104 H Pulse Rate [ From Monitor] Respiratory 16 Rate Respiratory Rate [Back] Blood Pressure 163/107 O2 Sat by Pulse 97 Oximetry O2 Sat by Pulse Oximetry [ Assessment] 05/15/20 05/15/20 05/15/20 04:44 05:00 05:34 Temperature Pulse Rate 93 H Pulse Rate [ From Monitor] Respiratory 23 20 Rate Respiratory Rate [Back] Blood Pressure 153/107 O2 Sat by Pulse 100 Oximetry O2 Sat by Pulse 97 Oximetry [ Assessment] 05/15/20 05/15/20 05/15/20 06:00 07:00 07:50 Temperature 98.0 F Pulse Rate 89 104 H 104 H Pulse Rate [ From Monitor] Respiratory 23 20 19 Rate Respiratory Rate [Back] Blood Pressure 130/90 125/91 125/91 O2 Sat by Pulse 97 96 96 Oximetry O2 Sat by Pulse Oximetry [ Assessment] 05/15/20 05/15/20 05/15/20 07:52 08:00 09:00 Temperature Pulse Rate 98 H 94 H Pulse Rate [ From Monitor] Respiratory 20 19 Rate Respiratory Rate [Back] Blood Pressure 114/82 119/83 O2 Sat by Pulse Oximetry O2 Sat by Pulse 98 Oximetry [ Assessment] 05/15/20 05/15/20 05/15/20 10:00 11:00 11:35 Temperature Pulse Rate 114 H 106 H 106 H Pulse Rate [ From Monitor] Respiratory 15 22 19 Rate Respiratory Rate [Back] Blood Pressure 112/85 121/81 121/81 O2 Sat by Pulse 99 99 99 Oximetry O2 Sat by Pulse Oximetry [ Assessment] 05/15/20 05/15/20 12:25 12:28 Temperature 98.0 F Pulse Rate Pulse Rate [ From Monitor] Respiratory 17 Rate Respiratory Rate [Back] Blood Pressure O2 Sat by Pulse Oximetry O2 Sat by Pulse Oximetry [ Assessment] - Labs CBC & Chem 7: 05/07/20 04:43 05/09/20 16:06 HEART Score - HEART Score Troponin: Troponin T 0.181 ng/mL (0.00-0.029) H* 04/24/20 05:28
[2020-05-15] MEDS: LIDOCAINE 5% 1 EACH PATCH TD SCH (17:04)
[2020-05-15] MEDS: D5W/0.9% NACL 1,000 ML IV SCH (22:54)
[2020-05-15] MEDS: SODIUM HYPOCHLORITE, DAKIN'S 1/2 STRENGTH (0.25%) 473 ML TOPICAL SOLN TP SCH (22:55)
[2020-05-15] MEDS: METOPROLOL TARTRATE 25 MG TAB PO SCH (22:59)
[2020-05-15] MEDS: ENOXAPARIN 40 MG/0.4 ML INJ SUB-Q SCH (23:02)
[2020-05-15] MEDS: SENNOSIDES 8.6 MG TAB PO SCH (23:04)
[2020-05-15] MEDS: ZOLPIDEM 5 MG TAB PO PRN (23:05)
[2020-05-16] MEDS: MORPHINE 2 MG/1 ML INJ IV PRN ×3 (04:08→23:38)
[2020-05-16] MEDS: diphenhydrAMINE 25 MG/10 ML ORAL LIQUID FEEDTUBE PRN ×2 (04:29→23:49)
[2020-05-16] MEDS: GLYCOPYRROLATE 1 MG TAB PO SCH ×3 (07:42→21:02)
[2020-05-16] MEDS: MAGIC MOUTHWASH 30ML PO SCH ×2 (07:43→21:04)
[2020-05-16] MEDS: METOPROLOL TARTRATE 25 MG TAB PO SCH ×3 (09:21→21:04)
[2020-05-16] MEDS: TAMSULOSIN 0.4 MG CAP PO SCH (09:22)
[2020-05-16] MEDS: DOCUSATE SODIUM 100 MG/10 ML ORAL LIQD FEEDTUBE SCH ×2 (09:22→21:03)
[2020-05-16] MEDS: ASPIRIN EC 81 MG TAB PO SCH (09:22)
[2020-05-16] MEDS: PREGABALIN 75 MG CAP PO SCH ×2 (09:24→21:03)
[2020-05-16] MEDS: LANSOPRAZOLE 30 MG SOLUTAB FEEDTUBE SCH (09:24)
[2020-05-16] MEDS: BACLOFEN 10 MG TAB PO SCH ×2 (09:24→21:03)
--- NOTE | 2020-05-16 11:00 | Progress Note ---
Assessment and Plan Patient awake. Patient is still on Pressure support ventilation, pressure support 10, FIO2 30%, PEEP 6 and O2 saturation running 99%. Recommend Continue spontaneous breathing trials as tolerated.Respiratory therapy told me, Patient Not tolearing T tube trial ' Recommend to decrease pressure support to 5.Patient running low grade temp and has no leukocytosis. Chest xray done 05/02/20 reported Interval worsening of right lung base opacity now appears to be pleural parenchymal. This may be a worsened infectious process or development of right- sided pleural effusion and worsened right lung base atelectasis. Left lung base opacity is stable. Tracheostomy in stable position. Patient right lung base infiltrate reported intervel worsening, patient has no leukocytosis, recommend to place him antibiotic like zosyn. Repeat chest xray 05/11/20 reported Mild interval improvement in the hazy opacity at the right lung base as described. I suspect this represents an improving atelectasis over effusion. - Patient Problems (1) Acute on chronic respiratory failure with hypoxia and hypercapnia Current Visit: Yes Status: Acute Plan to address problem: Patient is resting on Pressure support 10, FIO2 30%, PEEP 6. Albuterol inhaler 2 puffs po qid. Continue S/C Lovenox. Continue prevacid. Recommend to decrease pressure support 5. (2) Bleeding from wound Current Visit: Yes Status: Acute Plan to address problem: Management primary care , surgery and wound care. (3) Elevated d-dimer Current Visit: Yes Status: Acute Plan to address problem: Patients venous doppler studies of legs, CTA chest reported Negative for VTE. Patient is on S/C Lovenox 40 mg qd. (4) Elevated troponin Current Visit: Yes Status: Acute Plan to address problem: Management as per primary care and cardiology (5) NSTEMI (non-ST elevated myocardial infarction) Current Visit: Yes Status: Acute Plan to address problem: Management as per cardiology. (6) Pneumonia Current Visit: Yes Status: Acute Qualifiers: Laterality: bilateral Plan to address problem: Patient afebrile . Has mild leukocytosis. Repeat Chest xray done 05/02/20 reported Interval worsening of right lung base opacity now appears to be pleural parenchymal. This may be a worsened infectious process or development of right-sided pleural effusion and worsened right lung base atelectasis. Left lung base opacity is stable. Tracheostomy in stable position. Patient right lung base infiltrate reported intervel worsening, patient has no leukocytosis, recommend to place him antibiotic like zosyn. Repeating chest xray and ABGs. Repeat chest xray 05/11/20 reported Mild interval improvement in the hazy opacity at the right lung base as described. I suspect this represents an improving atelectasis over effusion. Subjective Date of service: 05/16/20 Principal diagnosis: Ac on Ch Hypercapnic & hypoxemic Resp Failure; Severe Sepsis; Jamar PNA; ALS Interval history: Patient awake. Patient is still on Pressure support ventilation, pressure support 10, FIO2 30%, PEEP 6 and O2 saturation running 99%. Recommend Continue spontaneous breathing trials as tolerated.Respiratory therapy told me, Patient Not tolearing T tube trial ' Recommend to decrease pressure support to 5.Patient running low grade temp and has no leukocytosis. Chest xray done 05/02/20 reported Interval worsening of right lung base opacity now appears to be pleural parenchymal. This may be a worsened infectious process or development of right- sided pleural effusion and worsened right lung base atelectasis. Left lung base opacity is stable. Tracheostomy in stable position. Patient right lung base infiltrate reported intervel worsening, patient has no leukocytosis, recommend to place him antibiotic like zosyn. Repeat chest xray 05/11/20 reported Mild interval improvement in the hazy opacity at the right lung base as described. I suspect this represents an improving atelectasis over effusion. Objective Vital Signs - 12hr 05/15/20 05/15/20 05/15/20 22:59 23:00 23:01 Temperature Pulse Rate 113 H 112 H Pulse Rate [ From Monitor] Respiratory 27 H 26 H Rate Blood Pressure 141/98 145/95 O2 Sat by Pulse 96 Oximetry O2 Sat by Pulse Oximetry [ Assessment] 05/15/20 05/16/20 05/16/20 23:52 00:00 01:00 Temperature 98.8 F Pulse Rate 103 H 92 H 96 H Pulse Rate [ 94 H From Monitor] Respiratory 19 23 Rate Blood Pressure 149/95 122/90 120/87 O2 Sat by Pulse 98 95 96 Oximetry O2 Sat by Pulse Oximetry [ Assessment] 05/16/20 05/16/20 05/16/20 02:00 03:00 04:00 Temperature 98.6 F Pulse Rate 111 H 94 H 101 H Pulse Rate [ 103 H From Monitor] Respiratory 13 21 24 Rate Blood Pressure 120/87 139/92 155/110 O2 Sat by Pulse 96 96 87 Oximetry O2 Sat by Pulse Oximetry [ Assessment] 05/16/20 05/16/20 05/16/20 04:08 05:00 05:13 Temperature Pulse Rate 100 H 102 H Pulse Rate [ From Monitor] Respiratory 26 H 23 Rate Blood Pressure 151/96 155/110 O2 Sat by Pulse 100 99 Oximetry O2 Sat by Pulse Oximetry [ Assessment] 05/16/20 05/16/20 05/16/20 05:15 06:00 07:00 Temperature Pulse Rate 90 91 H Pulse Rate [ From Monitor] Respiratory 22 21 Rate Blood Pressure 140/91 124/81 O2 Sat by Pulse Oximetry O2 Sat by Pulse 99 Oximetry [ Assessment] 05/16/20 05/16/20 05/16/20 08:00 08:01 08:02 Temperature 98.1 F Pulse Rate 122 H 110 H 113 H Pulse Rate [ 122 H From Monitor] Respiratory 24 27 H Rate Blood Pressure 148/98 148/98 O2 Sat by Pulse 100 96 97 Oximetry O2 Sat by Pulse Oximetry [ Assessment] 05/16/20 05/16/20 05/16/20 08:04 09:00 09:21 Temperature Pulse Rate 121 H 97 H 118 H Pulse Rate [ From Monitor] Respiratory 29 H 16 Rate Blood Pressure 148/98 121/83 121/83 O2 Sat by Pulse 99 99 Oximetry O2 Sat by Pulse Oximetry [ Assessment] 05/16/20 10:00 Temperature Pulse Rate 99 H Pulse Rate [ From Monitor] Respiratory 19 Rate Blood Pressure 122/85 O2 Sat by Pulse 99 Oximetry O2 Sat by Pulse Oximetry [ Assessment] Constitutional: no acute distress, alert Eyes: non-icteric ENT: oropharynx moist, other (S/P Tracheostomy) Neck: supple, no lymphadenopathy, no JVD Effort: mildly labored Ascultation: Bilateral: diminished breath sounds, wheezes, rhonchi (scant in bases) Percussion: Bilateral: not dull Cardiovascular: regular rate and rhythm, other (S1,S2, no murmurs) Gastrointestinal: normoactive bowel sounds, soft, non-tender, non-distended Integumentary: normal, decubitus ulcer (sacral / gluteal) Extremities: no cyanosis, no edema, pulses normal, other (atrophic looking limbs) Neurologic: pupils equal and round, other (motor strength in extremities 1-2/5, awake, alert, mouths words to make needs known) Psychiatric: depressed CBC and BMP: 05/07/20 04:43 05/09/20 16:06 ABG, PT/INR, D-dimer: ABG ABG pH 7.371 (7.320-7.450) 03/08/20 12:34 POC ABG pCO2 63.1 mmHg (32.0-48.0) H 03/08/20 12:34 ABG pCO2 60.1 mm Hg 03/06/20 04:34 POC ABG pO2 90.5 mmHg (83-108) 03/08/20 12:34 ABG pO2 88.6 mm Hg (80.0-90.0) 03/06/20 04:34 POC ABG HCO3 35.7 03/08/20 12:34 ABG O2 Saturation 97.0 % (95.0-99.0) 03/06/20 04:34 PT/INR, D-dimer PT 15.6 Sec. (12.2-14.9) H 02/24/20 09:19 INR 1.21 (0.87-1.13) H 02/24/20 09:19 D-Dimer 1311.96 ng/mlDDU (0-234) H 02/24/20 09:19 Abnormal lab findings: Abnormal Labs 02/24/20 02/24/20 02/24/20 09:19 09:19 09:19 WBC 20.2 H RBC 5.05 H Hgb Hct MCV MCH RDW 15.3 H Plt Count Lymph % (Auto) Drew % (Auto) Lymph # (Auto) Drew # (Auto) Seg Neutrophils % Seg Neuts % (Manual) 86.0 H Lymphocytes % (Manual) 1.0 L Monocytes % (Manual) Basophils % (Manual) Seg Neutrophils # Seg Neutrophils # Man 17.4 H Lymphocytes # (Manual) 0.2 L Monocytes # (Manual) Eosinophils # (Manual) Basophils # (Manual) PT 15.6 H INR 1.21 H D-Dimer 1311.96 H ABG pH POC ABG pCO2 POC ABG pO2 ABG pO2 ABG HCO3 ABG O2 Saturation ABG Base Excess ABG Hemoglobin ABG Oxyhemoglobin ABG Potassium ABG Glucose Oxyhemoglobin Carboxyhemoglobin Sodium 135 L Potassium 3.2 L Chloride 92.2 L Carbon Dioxide BUN 6 L Creatinine < 0.2 L Glucose 124 H POC Glucose Calcium Ferritin Total Bilirubin 2.30 H Alkaline Phosphatase 132 H Lactate Dehydrogenase Total Creatine Kinase CK-MB (CK-2) Rel Index Troponin T 0.080 H C-Reactive Protein Total Protein Albumin 3.6 L Prealbumin LDL Cholesterol Direct 41 L HDL Cholesterol Arterial Blood Glucose Arterial Blood Ionized Calcium Urine WBC (Auto) 02/24/20 02/24/20 02/24/20 09:19 09:58 10:01 WBC RBC Hgb Hct MCV MCH RDW Plt Count Lymph % (Auto) Drew % (Auto) Lymph # (Auto) Drew # (Auto) Seg Neutrophils % Seg Neuts % (Manual) Lymphocytes % (Manual) Monocytes % (Manual) Basophils % (Manual) Seg Neutrophils # Seg Neutrophils # Man Lymphocytes # (Manual) Monocytes # (Manual) Eosinophils # (Manual) Basophils # (Manual) PT INR D-Dimer ABG pH 7.176 L* POC ABG pCO2 POC ABG pO2 ABG pO2 91.2 H ABG HCO3 ABG O2 Saturation ABG Base Excess -4.6 L ABG Hemoglobin ABG Oxyhemoglobin ABG Potassium ABG Glucose Oxyhemoglobin 92.6 L Carboxyhemoglobin Sodium Potassium Chloride Carbon Dioxide BUN Creatinine Glucose POC Glucose Calcium Ferritin 1715.0 H Total Bilirubin Alkaline Phosphatase Lactate Dehydrogenase 303 H Total Creatine Kinase CK-MB (CK-2) Rel Index Troponin T C-Reactive Protein 26.10 H Total Protein Albumin Prealbumin LDL Cholesterol Direct HDL Cholesterol Arterial Blood Glucose Arterial Blood Ionized Calcium Urine WBC (Auto) 02/24/20 02/24/20 02/24/20 11:52 13:45 19:35 WBC RBC Hgb Hct MCV MCH RDW Plt Count Lymph % (Auto) Drew % (Auto) Lymph # (Auto) Drew # (Auto) Seg Neutrophils % Seg Neuts % (Manual) Lymphocytes % (Manual) Monocytes % (Manual) Basophils % (Manual) Seg Neutrophils # Seg Neutrophils # Man Lymphocytes # (Manual) Monocytes # (Manual) Eosinophils # (Manual) Basophils # (Manual) PT INR D-Dimer ABG pH 7.051 L* 7.300 L POC ABG pCO2 POC ABG pO2 ABG pO2 94.7 H 75.1 L ABG HCO3 18.0 L ABG O2 Saturation 93.5 L ABG Base Excess -6.8 L -7.8 L ABG Hemoglobin 13.2 L 11.9 L ABG Oxyhemoglobin ABG Potassium ABG Glucose Oxyhemoglobin 91.0 L 92.7 L Carboxyhemoglobin Sodium Potassium Chloride Carbon Dioxide BUN Creatinine Glucose POC Glucose Calcium Ferritin Total Bilirubin Alkaline Phosphatase Lactate Dehydrogenase Total Creatine Kinase CK-MB (CK-2) Rel Index Troponin T 0.034 H D C-Reactive Protein Total Protein Albumin Prealbumin LDL Cholesterol Direct HDL Cholesterol Arterial Blood Glucose Arterial Blood Ionized Calcium Urine WBC (Auto) 02/25/20 02/25/20 02/25/20 04:00 04:00 12:26 WBC 22.9 H RBC Hgb Hct MCV 83 L MCH 27 L RDW Plt Count 468 H Lymph % (Auto) Drew % (Auto) Lymph # (Auto) Drew # (Auto) Seg Neutrophils % Seg Neuts % (Manual) 89.0 H Lymphocytes % (Manual) 7.0 L Monocytes % (Manual) Basophils % (Manual) Seg Neutrophils # Seg Neutrophils # Man 20.4 H Lymphocytes # (Manual) Monocytes # (Manual) Eosinophils # (Manual) Basophils # (Manual) PT INR D-Dimer ABG pH POC ABG pCO2 POC ABG pO2 ABG pO2 ABG HCO3 ABG O2 Saturation ABG Base Excess ABG Hemoglobin ABG Oxyhemoglobin ABG Potassium 2.6 L ABG Glucose 142 H Oxyhemoglobin Carboxyhemoglobin Sodium Potassium 3.2 L Chloride Carbon Dioxide 18 L BUN Creatinine 0.2 L Glucose 114 H POC Glucose Calcium Ferritin Total Bilirubin Alkaline Phosphatase Lactate Dehydrogenase Total Creatine Kinase CK-MB (CK-2) Rel Index Troponin T C-Reactive Protein Total Protein Albumin 3.5 L Prealbumin LDL Cholesterol Direct HDL Cholesterol Arterial Blood Glucose 142 H Arterial Blood Ionized Calcium Urine WBC (Auto) 02/26/20 02/26/20 02/26/20 15:58 17:00 23:43 WBC RBC Hgb Hct MCV MCH RDW Plt Count Lymph % (Auto) Drew % (Auto) Lymph # (Auto) Drew # (Auto) Seg Neutrophils % Seg Neuts % (Manual) Lymphocytes % (Manual) Monocytes % (Manual) Basophils % (Manual) Seg Neutrophils # Seg Neutrophils # Man Lymphocytes # (Manual) Monocytes # (Manual) Eosinophils # (Manual) Basophils # (Manual) PT INR D-Dimer ABG pH 7.502 H POC ABG pCO2 POC ABG pO2 213.6 H ABG pO2 ABG HCO3 ABG O2 Saturation ABG Base Excess ABG Hemoglobin ABG Oxyhemoglobin 99.2 H ABG Potassium 2.9 L ABG Glucose 160 H Oxyhemoglobin Carboxyhemoglobin 0.4 L Sodium Potassium Chloride Carbon Dioxide BUN Creatinine Glucose POC Glucose 189 H 120 H Calcium Ferritin Total Bilirubin Alkaline Phosphatase Lactate Dehydrogenase Total Creatine Kinase CK-MB (CK-2) Rel Index Troponin T C-Reactive Protein Total Protein Albumin Prealbumin LDL Cholesterol Direct HDL Cholesterol Arterial Blood Glucose 160 H Arterial Blood Ionized Calcium 4.5 L Urine WBC (Auto) 02/27/20 02/27/20 02/27/20 05:00 07:04 17:45 WBC RBC Hgb Hct MCV MCH RDW Plt Count Lymph % (Auto) Drew % (Auto) Lymph # (Auto) Drew # (Auto) Seg Neutrophils % Seg Neuts % (Manual) Lymphocytes % (Manual) Monocytes % (Manual) Basophils % (Manual) Seg Neutrophils # Seg Neutrophils # Man Lymphocytes # (Manual) Monocytes # (Manual) Eosinophils # (Manual) Basophils # (Manual) PT INR D-Dimer ABG pH 7.524 H POC ABG pCO2 POC ABG pO2 ABG pO2 ABG HCO3 ABG O2 Saturation ABG Base Excess ABG Hemoglobin ABG Oxyhemoglobin ABG Potassium 3.0 L ABG Glucose 143 H Oxyhemoglobin Carboxyhemoglobin Sodium Potassium Chloride Carbon Dioxide BUN Creatinine Glucose POC Glucose 154 H 175 H Calcium Ferritin Total Bilirubin Alkaline Phosphatase Lactate Dehydrogenase Total Creatine Kinase CK-MB (CK-2) Rel Index Troponin T C-Reactive Protein Total Protein Albumin Prealbumin LDL Cholesterol Direct HDL Cholesterol Arterial Blood Glucose 143 H Arterial Blood Ionized Calcium Urine WBC (Auto) 02/27/20 02/28/20 02/28/20 Unknown 00:21 04:15 WBC 18.7 H RBC Hgb Hct MCV MCH RDW Plt Count Lymph % (Auto) 8.7 L Drew % (Auto) Lymph # (Auto) Drew # (Auto) 1.2 H Seg Neutrophils % 84.6 H Seg Neuts % (Manual) Lymphocytes % (Manual) Monocytes % (Manual) Basophils % (Manual) Seg Neutrophils # 15.9 H Seg Neutrophils # Man Lymphocytes # (Manual) Monocytes # (Manual) Eosinophils # (Manual) Basophils # (Manual) PT INR D-Dimer ABG pH POC ABG pCO2 POC ABG pO2 ABG pO2 ABG HCO3 ABG O2 Saturation ABG Base Excess ABG Hemoglobin ABG Oxyhemoglobin ABG Potassium ABG Glucose Oxyhemoglobin Carboxyhemoglobin Sodium Potassium 2.9 L* Chloride Carbon Dioxide 33 H D BUN Creatinine < 0.2 L Glucose 157 H POC Glucose 134 H Calcium Ferritin Total Bilirubin Alkaline Phosphatase Lactate Dehydrogenase Total Creatine Kinase CK-MB (CK-2) Rel Index Troponin T C-Reactive Protein Total Protein Albumin Prealbumin LDL Cholesterol Direct HDL Cholesterol Arterial Blood Glucose Arterial Blood Ionized Calcium Urine WBC (Auto) 02/28/20 02/28/20 02/28/20 04:15 05:16 05:39 WBC RBC Hgb Hct MCV MCH RDW Plt Count Lymph % (Auto) Drew % (Auto) Lymph # (Auto) Drew # (Auto) Seg Neutrophils % Seg Neuts % (Manual) Lymphocytes % (Manual) Monocytes % (Manual) Basophils % (Manual) Seg Neutrophils # Seg Neutrophils # Man Lymphocytes # (Manual) Monocytes # (Manual) Eosinophils # (Manual) Basophils # (Manual) PT INR D-Dimer ABG pH POC ABG pCO2 POC ABG pO2 ABG pO2 142.9 H ABG HCO3 34.1 H ABG O2 Saturation ABG Base Excess 8.3 H ABG Hemoglobin ABG Oxyhemoglobin ABG Potassium ABG Glucose Oxyhemoglobin Carboxyhemoglobin Sodium 151 H Potassium Chloride Carbon Dioxide 32 H BUN Creatinine 0.2 L Glucose 167 H POC Glucose 138 H Calcium Ferritin Total Bilirubin Alkaline Phosphatase Lactate Dehydrogenase Total Creatine Kinase CK-MB (CK-2) Rel Index Troponin T C-Reactive Protein Total Protein Albumin Prealbumin LDL Cholesterol Direct HDL Cholesterol Arterial Blood Glucose Arterial Blood Ionized Calcium Urine WBC (Auto) 02/28/20 02/28/20 02/28/20 11:05 11:33 12:54 WBC RBC Hgb Hct MCV MCH RDW Plt Count Lymph % (Auto) Drew % (Auto) Lymph # (Auto) Drew # (Auto) Seg Neutrophils % Seg Neuts % (Manual) Lymphocytes % (Manual) Monocytes % (Manual) Basophils % (Manual) Seg Neutrophils # Seg Neutrophils # Man Lymphocytes # (Manual) Monocytes # (Manual) Eosinophils # (Manual) Basophils # (Manual) PT INR D-Dimer ABG pH POC ABG pCO2 POC ABG pO2 ABG pO2 ABG HCO3 ABG O2 Saturation ABG Base Excess ABG Hemoglobin ABG Oxyhemoglobin ABG Potassium ABG Glucose Oxyhemoglobin Carboxyhemoglobin Sodium Potassium Chloride Carbon Dioxide BUN Creatinine Glucose POC Glucose 160 H Calcium Ferritin Total Bilirubin Alkaline Phosphatase Lactate Dehydrogenase Total Creatine Kinase CK-MB (CK-2) Rel Index Troponin T C-Reactive Protein 4.70 H Total Protein Albumin Prealbumin 0.090 L LDL Cholesterol Direct HDL Cholesterol Arterial Blood Glucose Arterial Blood Ionized Calcium Urine WBC (Auto) 02/28/20 02/29/20 02/29/20 17:34 00:44 04:05 WBC 19.6 H RBC Hgb Hct MCV MCH 27 L RDW 15.4 H Plt Count Lymph % (Auto) Drew % (Auto) Lymph # (Auto) Drew # (Auto) Seg Neutrophils % Seg Neuts % (Manual) 86.0 H Lymphocytes % (Manual) 7.0 L Monocytes % (Manual) Basophils % (Manual) Seg Neutrophils # Seg Neutrophils # Man 16.9 H Lymphocytes # (Manual) Monocytes # (Manual) 1.2 H Eosinophils # (Manual) Basophils # (Manual) PT INR D-Dimer ABG pH POC ABG pCO2 POC ABG pO2 ABG pO2 ABG HCO3 ABG O2 Saturation ABG Base Excess ABG Hemoglobin ABG Oxyhemoglobin ABG Potassium ABG Glucose Oxyhemoglobin Carboxyhemoglobin Sodium Potassium Chloride Carbon Dioxide BUN Creatinine Glucose POC Glucose 136 H 156 H Calcium Ferritin Total Bilirubin Alkaline Phosphatase Lactate Dehydrogenase Total Creatine Kinase CK-MB (CK-2) Rel Index Troponin T C-Reactive Protein Total Protein Albumin Prealbumin LDL Cholesterol Direct HDL Cholesterol Arterial Blood Glucose Arterial Blood Ionized Calcium Urine WBC (Auto) 02/29/20 02/29/20 02/29/20 04:05 05:14 05:33 WBC RBC Hgb Hct MCV MCH RDW Plt Count Lymph % (Auto) Drew % (Auto) Lymph # (Auto) Drew # (Auto) Seg Neutrophils % Seg Neuts % (Manual) Lymphocytes % (Manual) Monocytes % (Manual) Basophils % (Manual) Seg Neutrophils # Seg Neutrophils # Man Lymphocytes # (Manual) Monocytes # (Manual) Eosinophils # (Manual) Basophils # (Manual) PT INR D-Dimer ABG pH POC ABG pCO2 54.3 H POC ABG pO2 124.8 H ABG pO2 ABG HCO3 ABG O2 Saturation ABG Base Excess ABG Hemoglobin ABG Oxyhemoglobin ABG Potassium ABG Glucose 185 H Oxyhemoglobin Carboxyhemoglobin Sodium 148 H Potassium Chloride Carbon Dioxide 33 H BUN Creatinine < 0.2 L Glucose 173 H POC Glucose 152 H Calcium Ferritin Total Bilirubin Alkaline Phosphatase Lactate Dehydrogenase Total Creatine Kinase CK-MB (CK-2) Rel Index Troponin T C-Reactive Protein Total Protein Albumin Prealbumin LDL Cholesterol Direct HDL Cholesterol Arterial Blood Glucose 185 H Arterial Blood Ionized Calcium Urine WBC (Auto) 03/01/20 03/01/20 03/01/20 00:00 03:45 04:33 WBC 23.1 H RBC Hgb Hct MCV MCH 27 L RDW 15.3 H Plt Count Lymph % (Auto) Drew % (Auto) Lymph # (Auto) Drew # (Auto) Seg Neutrophils % Seg Neuts % (Manual) 92.0 H Lymphocytes % (Manual) 6.0 L Monocytes % (Manual) Basophils % (Manual) Seg Neutrophils # Seg Neutrophils # Man 21.3 H Lymphocytes # (Manual) Monocytes # (Manual) Eosinophils # (Manual) 0.5 H Basophils # (Manual) PT INR D-Dimer ABG pH 7.492 H POC ABG pCO2 POC ABG pO2 ABG pO2 157.1 H ABG HCO3 32.3 H ABG O2 Saturation ABG Base Excess 8.1 H ABG Hemoglobin 13.2 L ABG Oxyhemoglobin ABG Potassium ABG Glucose Oxyhemoglobin Carboxyhemoglobin Sodium Potassium Chloride Carbon Dioxide BUN Creatinine Glucose POC Glucose 109 H Calcium Ferritin Total Bilirubin Alkaline Phosphatase Lactate Dehydrogenase Total Creatine Kinase CK-MB (CK-2) Rel Index Troponin T C-Reactive Protein Total Protein Albumin Prealbumin LDL Cholesterol Direct HDL Cholesterol Arterial Blood Glucose Arterial Blood Ionized Calcium Urine WBC (Auto) 03/01/20 03/01/20 03/01/20 04:33 05:29 12:32 WBC RBC Hgb Hct MCV MCH RDW Plt Count Lymph % (Auto) Drew % (Auto) Lymph # (Auto) Drew # (Auto) Seg Neutrophils % Seg Neuts % (Manual) Lymphocytes % (Manual) Monocytes % (Manual) Basophils % (Manual) Seg Neutrophils # Seg Neutrophils # Man Lymphocytes # (Manual) Monocytes # (Manual) Eosinophils # (Manual) Basophils # (Manual) PT INR D-Dimer ABG pH POC ABG pCO2 POC ABG pO2 ABG pO2 ABG HCO3 ABG O2 Saturation ABG Base Excess ABG Hemoglobin ABG Oxyhemoglobin ABG Potassium ABG Glucose Oxyhemoglobin Carboxyhemoglobin Sodium 146 H Potassium Chloride Carbon Dioxide 32 H BUN Creatinine < 0.2 L Glucose 120 H POC Glucose 120 H 128 H Calcium Ferritin Total Bilirubin Alkaline Phosphatase Lactate Dehydrogenase Total Creatine Kinase CK-MB (CK-2) Rel Index Troponin T C-Reactive Protein Total Protein Albumin Prealbumin LDL Cholesterol Direct HDL Cholesterol Arterial Blood Glucose Arterial Blood Ionized Calcium Urine WBC (Auto) 03/01/20 03/01/20 03/02/20 17:38 23:46 06:13 WBC RBC Hgb Hct MCV MCH RDW Plt Count Lymph % (Auto) Drew % (Auto) Lymph # (Auto) Drew # (Auto) Seg Neutrophils % Seg Neuts % (Manual) Lymphocytes % (Manual) Monocytes % (Manual) Basophils % (Manual) Seg Neutrophils # Seg Neutrophils # Man Lymphocytes # (Manual) Monocytes # (Manual) Eosinophils # (Manual) Basophils # (Manual) PT INR D-Dimer ABG pH POC ABG pCO2 POC ABG pO2 ABG pO2 ABG HCO3 ABG O2 Saturation ABG Base Excess ABG Hemoglobin ABG Oxyhemoglobin ABG Potassium ABG Glucose Oxyhemoglobin Carboxyhemoglobin Sodium Potassium Chloride Carbon Dioxide BUN Creatinine Glucose POC Glucose 114 H 121 H 120 H Calcium Ferritin Total Bilirubin Alkaline Phosphatase Lactate Dehydrogenase Total Creatine Kinase CK-MB (CK-2) Rel Index Troponin T C-Reactive Protein Total Protein Albumin Prealbumin LDL Cholesterol Direct HDL Cholesterol Arterial Blood Glucose Arterial Blood Ionized Calcium Urine WBC (Auto) 03/02/20 03/02/20 03/03/20 09:47 09:47 10:21 WBC 23.6 H RBC Hgb Hct MCV MCH RDW 15.3 H Plt Count 494 H Lymph % (Auto) Drew % (Auto) Lymph # (Auto) Drew # (Auto) Seg Neutrophils % Seg Neuts % (Manual) 85.0 H Lymphocytes % (Manual) 6.0 L Monocytes % (Manual) Basophils % (Manual) Seg Neutrophils # Seg Neutrophils # Man 20.1 H Lymphocytes # (Manual) Monocytes # (Manual) 1.7 H Eosinophils # (Manual) Basophils # (Manual) PT INR D-Dimer ABG pH POC ABG pCO2 POC ABG pO2 ABG pO2 ABG HCO3 ABG O2 Saturation ABG Base Excess ABG Hemoglobin ABG Oxyhemoglobin ABG Potassium 3.3 L ABG Glucose 158 H Oxyhemoglobin Carboxyhemoglobin Sodium Potassium Chloride Carbon Dioxide BUN Creatinine < 0.2 L Glucose 177 H POC Glucose Calcium Ferritin Total Bilirubin Alkaline Phosphatase Lactate Dehydrogenase Total Creatine Kinase CK-MB (CK-2) Rel Index Troponin T C-Reactive Protein Total Protein Albumin Prealbumin LDL Cholesterol Direct HDL Cholesterol Arterial Blood Glucose 158 H Arterial Blood Ionized Calcium Urine WBC (Auto) 03/03/20 03/04/20 03/04/20 21:30 00:00 12:23 WBC RBC Hgb Hct MCV MCH RDW Plt Count Lymph % (Auto) Drew % (Auto) Lymph # (Auto) Drew # (Auto) Seg Neutrophils % Seg Neuts % (Manual) Lymphocytes % (Manual) Monocytes % (Manual) Basophils % (Manual) Seg Neutrophils # Seg Neutrophils # Man Lymphocytes # (Manual) Monocytes # (Manual) Eosinophils # (Manual) Basophils # (Manual) PT INR D-Dimer ABG pH 7.328 L POC ABG pCO2 POC ABG pO2 ABG pO2 68.4 L ABG HCO3 35.0 H ABG O2 Saturation 93.9 L ABG Base Excess 6.8 H ABG Hemoglobin 12.7 L ABG Oxyhemoglobin ABG Potassium ABG Glucose Oxyhemoglobin 91.9 L Carboxyhemoglobin Sodium Potassium Chloride Carbon Dioxide BUN Creatinine Glucose POC Glucose 187 H 163 H Calcium Ferritin Total Bilirubin Alkaline Phosphatase Lactate Dehydrogenase Total Creatine Kinase CK-MB (CK-2) Rel Index Troponin T C-Reactive Protein Total Protein Albumin Prealbumin LDL Cholesterol Direct HDL Cholesterol Arterial Blood Glucose Arterial Blood Ionized Calcium Urine WBC (Auto) 03/04/20 03/04/20 03/05/20 18:15 21:30 06:02 WBC RBC Hgb Hct MCV MCH RDW Plt Count Lymph % (Auto) Drew % (Auto) Lymph # (Auto) Drew # (Auto) Seg Neutrophils % Seg Neuts % (Manual) Lymphocytes % (Manual) Monocytes % (Manual) Basophils % (Manual) Seg Neutrophils # Seg Neutrophils # Man Lymphocytes # (Manual) Monocytes # (Manual) Eosinophils # (Manual) Basophils # (Manual) PT INR D-Dimer ABG pH 7.297 L POC ABG pCO2 POC ABG pO2 ABG pO2 ABG HCO3 41.0 H ABG O2 Saturation ABG Base Excess 11.0 H ABG Hemoglobin 13.1 L ABG Oxyhemoglobin ABG Potassium ABG Glucose Oxyhemoglobin 94.5 L Carboxyhemoglobin Sodium Potassium Chloride Carbon Dioxide BUN Creatinine Glucose POC Glucose 192 H 127 H Calcium Ferritin Total Bilirubin Alkaline Phosphatase Lactate Dehydrogenase Total Creatine Kinase CK-MB (CK-2) Rel Index Troponin T C-Reactive Protein Total Protein Albumin Prealbumin LDL Cholesterol Direct HDL Cholesterol Arterial Blood Glucose Arterial Blood Ionized Calcium Urine WBC (Auto) 03/05/20 03/05/20 03/06/20 12:09 16:42 00:24 WBC RBC Hgb Hct MCV MCH RDW Plt Count Lymph % (Auto) Drew % (Auto) Lymph # (Auto) Drew # (Auto) Seg Neutrophils % Seg Neuts % (Manual) Lymphocytes % (Manual) Monocytes % (Manual) Basophils % (Manual) Seg Neutrophils # Seg Neutrophils # Man Lymphocytes # (Manual) Monocytes # (Manual) Eosinophils # (Manual) Basophils # (Manual) PT INR D-Dimer ABG pH POC ABG pCO2 POC ABG pO2 ABG pO2 ABG HCO3 ABG O2 Saturation ABG Base Excess ABG Hemoglobin ABG Oxyhemoglobin ABG Potassium ABG Glucose Oxyhemoglobin Carboxyhemoglobin Sodium Potassium Chloride Carbon Dioxide BUN Creatinine Glucose POC Glucose 147 H 114 H 134 H Calcium Ferritin Total Bilirubin Alkaline Phosphatase Lactate Dehydrogenase Total Creatine Kinase CK-MB (CK-2) Rel Index Troponin T C-Reactive Protein Total Protein Albumin Prealbumin LDL Cholesterol Direct HDL Cholesterol Arterial Blood Glucose Arterial Blood Ionized Calcium Urine WBC (Auto) 03/06/20 03/06/20 03/06/20 04:34 05:53 06:08 WBC 25.4 H RBC Hgb 10.5 L Hct 32.7 L MCV MCH 27 L RDW 15.3 H Plt Count 634 H Lymph % (Auto) Drew % (Auto) Lymph # (Auto) Drew # (Auto) Seg Neutrophils % Seg Neuts % (Manual) 88.0 H Lymphocytes % (Manual) 2.0 L Monocytes % (Manual) 8.0 H Basophils % (Manual) Seg Neutrophils # Seg Neutrophils # Man 22.4 H Lymphocytes # (Manual) 0.5 L Monocytes # (Manual) 2.0 H Eosinophils # (Manual) Basophils # (Manual) PT INR D-Dimer ABG pH POC ABG pCO2 POC ABG pO2 ABG pO2 ABG HCO3 37.9 H ABG O2 Saturation ABG Base Excess 11.4 H ABG Hemoglobin 10.6 L ABG Oxyhemoglobin ABG Potassium ABG Glucose Oxyhemoglobin 94.7 L Carboxyhemoglobin Sodium Potassium Chloride Carbon Dioxide BUN Creatinine Glucose POC Glucose 135 H Calcium Ferritin Total Bilirubin Alkaline Phosphatase Lactate Dehydrogenase Total Creatine Kinase CK-MB (CK-2) Rel Index Troponin T C-Reactive Protein Total Protein Albumin Prealbumin LDL Cholesterol Direct HDL Cholesterol Arterial Blood Glucose Arterial Blood Ionized Calcium Urine WBC (Auto) 03/06/20 03/06/20 03/06/20 06:08 12:19 19:10 WBC RBC Hgb Hct MCV MCH RDW Plt Count Lymph % (Auto) Drew % (Auto) Lymph # (Auto) Drew # (Auto) Seg Neutrophils % Seg Neuts % (Manual) Lymphocytes % (Manual) Monocytes % (Manual) Basophils % (Manual) Seg Neutrophils # Seg Neutrophils # Man Lymphocytes # (Manual) Monocytes # (Manual) Eosinophils # (Manual) Basophils # (Manual) PT INR D-Dimer ABG pH POC ABG pCO2 POC ABG pO2 ABG pO2 ABG HCO3 ABG O2 Saturation ABG Base Excess ABG Hemoglobin ABG Oxyhemoglobin ABG Potassium ABG Glucose Oxyhemoglobin Carboxyhemoglobin Sodium 150 H D Potassium Chloride Carbon Dioxide 39 H D BUN 23 H Creatinine < 0.2 L Glucose 144 H POC Glucose 169 H 152 H Calcium Ferritin Total Bilirubin Alkaline Phosphatase Lactate Dehydrogenase Total Creatine Kinase CK-MB (CK-2) Rel Index Troponin T C-Reactive Protein Total Protein Albumin 3.3 L Prealbumin LDL Cholesterol Direct HDL Cholesterol Arterial Blood Glucose Arterial Blood Ionized Calcium Urine WBC (Auto) 03/06/20 03/07/20 03/07/20 23:58 04:25 04:25 WBC 22.1 H RBC Hgb 10.9 L Hct 32.9 L MCV MCH RDW 15.5 H Plt Count 739 H Lymph % (Auto) 7.8 L Drew % (Auto) Lymph # (Auto) Drew # (Auto) 1.3 H Seg Neutrophils % 85.5 H Seg Neuts % (Manual) Lymphocytes % (Manual) Monocytes % (Manual) Basophils % (Manual) Seg Neutrophils # 18.9 H Seg Neutrophils # Man Lymphocytes # (Manual) Monocytes # (Manual) Eosinophils # (Manual) Basophils # (Manual) PT INR D-Dimer ABG pH POC ABG pCO2 POC ABG pO2 ABG pO2 ABG HCO3 ABG O2 Saturation ABG Base Excess ABG Hemoglobin ABG Oxyhemoglobin ABG Potassium ABG Glucose Oxyhemoglobin Carboxyhemoglobin Sodium 146 H Potassium Chloride Carbon Dioxide 37 H BUN Creatinine < 0.2 L Glucose 118 H POC Glucose 111 H Calcium Ferritin Total Bilirubin Alkaline Phosphatase Lactate Dehydrogenase Total Creatine Kinase CK-MB (CK-2) Rel Index Troponin T C-Reactive Protein Total Protein Albumin 3.7 L Prealbumin LDL Cholesterol Direct HDL Cholesterol Arterial Blood Glucose Arterial Blood Ionized Calcium Urine WBC (Auto) 03/07/20 03/07/20 03/07/20 05:20 17:45 23:32 WBC RBC Hgb Hct MCV MCH RDW Plt Count Lymph % (Auto) Drew % (Auto) Lymph # (Auto) Drew # (Auto) Seg Neutrophils % Seg Neuts % (Manual) Lymphocytes % (Manual) Monocytes % (Manual) Basophils % (Manual) Seg Neutrophils # Seg Neutrophils # Man Lymphocytes # (Manual) Monocytes # (Manual) Eosinophils # (Manual) Basophils # (Manual) PT INR D-Dimer ABG pH POC ABG pCO2 POC ABG pO2 ABG pO2 ABG HCO3 ABG O2 Saturation ABG Base Excess ABG Hemoglobin ABG Oxyhemoglobin ABG Potassium ABG Glucose Oxyhemoglobin Carboxyhemoglobin Sodium Potassium Chloride Carbon Dioxide BUN Creatinine Glucose POC Glucose 113 H 124 H 210 H Calcium Ferritin Total Bilirubin Alkaline Phosphatase Lactate Dehydrogenase Total Creatine Kinase CK-MB (CK-2) Rel Index Troponin T C-Reactive Protein Total Protein Albumin Prealbumin LDL Cholesterol Direct HDL Cholesterol Arterial Blood Glucose Arterial Blood Ionized Calcium Urine WBC (Auto) 03/08/20 03/08/20 03/08/20 05:35 06:43 06:43 WBC 28.9 H RBC 3.53 L Hgb 9.7 L Hct 30.3 L MCV MCH RDW 15.6 H Plt Count 578 H Lymph % (Auto) Drew % (Auto) Lymph # (Auto) Drew # (Auto) Seg Neutrophils % Seg Neuts % (Manual) 93.0 H Lymphocytes % (Manual) 4.0 L Monocytes % (Manual) Basophils % (Manual) Seg Neutrophils # Seg Neutrophils # Man 26.9 H Lymphocytes # (Manual) Monocytes # (Manual) Eosinophils # (Manual) Basophils # (Manual) PT INR D-Dimer ABG pH POC ABG pCO2 POC ABG pO2 ABG pO2 ABG HCO3 ABG O2 Saturation ABG Base Excess ABG Hemoglobin ABG Oxyhemoglobin ABG Potassium ABG Glucose Oxyhemoglobin Carboxyhemoglobin Sodium 146 H Potassium Chloride Carbon Dioxide 35 H BUN 34 H Creatinine 0.3 L D Glucose 125 H POC Glucose 147 H Calcium Ferritin Total Bilirubin Alkaline Phosphatase Lactate Dehydrogenase Total Creatine Kinase CK-MB (CK-2) Rel Index Troponin T C-Reactive Protein Total Protein 5.9 L Albumin 3.2 L Prealbumin LDL Cholesterol Direct HDL Cholesterol Arterial Blood Glucose Arterial Blood Ionized Calcium Urine WBC (Auto) 03/08/20 03/08/20 03/08/20 08:57 11:14 12:34 WBC RBC Hgb Hct MCV MCH RDW Plt Count Lymph % (Auto) Drew % (Auto) Lymph # (Auto) Drew # (Auto) Seg Neutrophils % Seg Neuts % (Manual) Lymphocytes % (Manual) Monocytes % (Manual) Basophils % (Manual) Seg Neutrophils # Seg Neutrophils # Man Lymphocytes # (Manual) Monocytes # (Manual) Eosinophils # (Manual) Basophils # (Manual) PT INR D-Dimer ABG pH POC ABG pCO2 63.1 H POC ABG pO2 ABG pO2 ABG HCO3 ABG O2 Saturation ABG Base Excess ABG Hemoglobin 10.9 L ABG Oxyhemoglobin ABG Potassium ABG Glucose 176 H Oxyhemoglobin Carboxyhemoglobin Sodium Potassium Chloride Carbon Dioxide BUN Creatinine Glucose POC Glucose 171 H Calcium Ferritin Total Bilirubin Alkaline Phosphatase Lactate Dehydrogenase Total Creatine Kinase CK-MB (CK-2) Rel Index Troponin T C-Reactive Protein Total Protein Albumin Prealbumin LDL Cholesterol Direct HDL Cholesterol Arterial Blood Glucose 176 H Arterial Blood Ionized Calcium 4.5 L Urine WBC (Auto) 10.0 H 03/08/20 03/08/20 03/09/20 18:02 23:43 05:49 WBC RBC Hgb Hct MCV MCH RDW Plt Count Lymph % (Auto) Drew % (Auto) Lymph # (Auto) Drew # (Auto) Seg Neutrophils % Seg Neuts % (Manual) Lymphocytes % (Manual) Monocytes % (Manual) Basophils % (Manual) Seg Neutrophils # Seg Neutrophils # Man Lymphocytes # (Manual) Monocytes # (Manual) Eosinophils # (Manual) Basophils # (Manual) PT INR D-Dimer ABG pH POC ABG pCO2 POC ABG pO2 ABG pO2 ABG HCO3 ABG O2 Saturation ABG Base Excess ABG Hemoglobin ABG Oxyhemoglobin ABG Potassium ABG Glucose Oxyhemoglobin Carboxyhemoglobin Sodium Potassium Chloride Carbon Dioxide BUN Creatinine Glucose POC Glucose 157 H 134 H 163 H Calcium Ferritin Total Bilirubin Alkaline Phosphatase Lactate Dehydrogenase Total Creatine Kinase CK-MB (CK-2) Rel Index Troponin T C-Reactive Protein Total Protein Albumin Prealbumin LDL Cholesterol Direct HDL Cholesterol Arterial Blood Glucose Arterial Blood Ionized Calcium Urine WBC (Auto) 03/09/20 03/09/20 03/09/20 08:35 08:35 12:11 WBC 23.4 H RBC 3.36 L Hgb 9.3 L Hct 28.8 L MCV MCH RDW 15.9 H Plt Count 521 H Lymph % (Auto) Drew % (Auto) Lymph # (Auto) Drew # (Auto) Seg Neutrophils % Seg Neuts % (Manual) 87.0 H Lymphocytes % (Manual) 4.0 L Monocytes % (Manual) 9.0 H Basophils % (Manual) Seg Neutrophils # Seg Neutrophils # Man 20.4 H Lymphocytes # (Manual) 0.9 L Monocytes # (Manual) 2.1 H Eosinophils # (Manual) Basophils # (Manual) PT INR D-Dimer ABG pH POC ABG pCO2 POC ABG pO2 ABG pO2 ABG HCO3 ABG O2 Saturation ABG Base Excess ABG Hemoglobin ABG Oxyhemoglobin ABG Potassium ABG Glucose Oxyhemoglobin Carboxyhemoglobin Sodium 147 H Potassium Chloride Carbon Dioxide 37 H BUN 63 H Creatinine Glucose 154 H POC Glucose 128 H Calcium Ferritin Total Bilirubin Alkaline Phosphatase Lactate Dehydrogenase Total Creatine Kinase CK-MB (CK-2) Rel Index Troponin T C-Reactive Protein Total Protein Albumin Prealbumin LDL Cholesterol Direct HDL Cholesterol Arterial Blood Glucose Arterial Blood Ionized Calcium Urine WBC (Auto) 03/09/20 03/10/20 03/10/20 17:51 00:25 05:41 WBC RBC Hgb Hct MCV MCH RDW Plt Count Lymph % (Auto) Drew % (Auto) Lymph # (Auto) Drew # (Auto) Seg Neutrophils % Seg Neuts % (Manual) Lymphocytes % (Manual) Monocytes % (Manual) Basophils % (Manual) Seg Neutrophils # Seg Neutrophils # Man Lymphocytes # (Manual) Monocytes # (Manual) Eosinophils # (Manual) Basophils # (Manual) PT INR D-Dimer ABG pH POC ABG pCO2 POC ABG pO2 ABG pO2 ABG HCO3 ABG O2 Saturation ABG Base Excess ABG Hemoglobin ABG Oxyhemoglobin ABG Potassium ABG Glucose Oxyhemoglobin Carboxyhemoglobin Sodium Potassium Chloride Carbon Dioxide BUN Creatinine Glucose POC Glucose 127 H 128 H 153 H Calcium Ferritin Total Bilirubin Alkaline Phosphatase Lactate Dehydrogenase Total Creatine Kinase CK-MB (CK-2) Rel Index Troponin T C-Reactive Protein Total Protein Albumin Prealbumin LDL Cholesterol Direct HDL Cholesterol Arterial Blood Glucose Arterial Blood Ionized Calcium Urine WBC (Auto) 03/10/20 03/10/20 03/10/20 06:14 06:14 12:02 WBC 18.3 H RBC 3.45 L Hgb 9.5 L Hct 29.5 L MCV MCH RDW 16.1 H Plt Count 494 H Lymph % (Auto) Drew % (Auto) Lymph # (Auto) Drew # (Auto) Seg Neutrophils % Seg Neuts % (Manual) 95.0 H Lymphocytes % (Manual) 1.0 L Monocytes % (Manual) Basophils % (Manual) Seg Neutrophils # Seg Neutrophils # Man 17.4 H Lymphocytes # (Manual) 0.2 L Monocytes # (Manual) Eosinophils # (Manual) Basophils # (Manual) PT INR D-Dimer ABG pH POC ABG pCO2 POC ABG pO2 ABG pO2 ABG HCO3 ABG O2 Saturation ABG Base Excess ABG Hemoglobin ABG Oxyhemoglobin ABG Potassium ABG Glucose Oxyhemoglobin Carboxyhemoglobin Sodium 149 H Potassium Chloride Carbon Dioxide 35 H BUN 34 H Creatinine 0.2 L D Glucose 177 H POC Glucose 151 H Calcium Ferritin Total Bilirubin Alkaline Phosphatase Lactate Dehydrogenase Total Creatine Kinase CK-MB (CK-2) Rel Index Troponin T C-Reactive Protein Total Protein Albumin Prealbumin LDL Cholesterol Direct HDL Cholesterol Arterial Blood Glucose Arterial Blood Ionized Calcium Urine WBC (Auto) 03/10/20 03/10/20 03/11/20 17:41 23:53 05:02 WBC RBC Hgb Hct MCV MCH RDW Plt Count Lymph % (Auto) Drew % (Auto) Lymph # (Auto) Drew # (Auto) Seg Neutrophils % Seg Neuts % (Manual) Lymphocytes % (Manual) Monocytes % (Manual) Basophils % (Manual) Seg Neutrophils # Seg Neutrophils # Man Lymphocytes # (Manual) Monocytes # (Manual) Eosinophils # (Manual) Basophils # (Manual) PT INR D-Dimer ABG pH POC ABG pCO2 POC ABG pO2 ABG pO2 ABG HCO3 ABG O2 Saturation ABG Base Excess ABG Hemoglobin ABG Oxyhemoglobin ABG Potassium ABG Glucose Oxyhemoglobin Carboxyhemoglobin Sodium Potassium Chloride Carbon Dioxide BUN Creatinine Glucose POC Glucose 168 H 142 H 146 H Calcium Ferritin Total Bilirubin Alkaline Phosphatase Lactate Dehydrogenase Total Creatine Kinase CK-MB (CK-2) Rel Index Troponin T C-Reactive Protein Total Protein Albumin Prealbumin LDL Cholesterol Direct HDL Cholesterol Arterial Blood Glucose Arterial Blood Ionized Calcium Urine WBC (Auto) 03/11/20 03/11/20 03/11/20 11:30 14:01 14:01 WBC 19.7 H RBC 3.04 L Hgb 8.7 L Hct 25.8 L MCV MCH RDW 15.6 H Plt Count Lymph % (Auto) Drew % (Auto) Lymph # (Auto) Drew # (Auto) Seg Neutrophils % Seg Neuts % (Manual) Lymphocytes % (Manual) Monocytes % (Manual) Basophils % (Manual) Seg Neutrophils # Seg Neutrophils # Man Lymphocytes # (Manual) Monocytes # (Manual) Eosinophils # (Manual) Basophils # (Manual) PT INR D-Dimer ABG pH POC ABG pCO2 POC ABG pO2 ABG pO2 ABG HCO3 ABG O2 Saturation ABG Base Excess ABG Hemoglobin ABG Oxyhemoglobin ABG Potassium ABG Glucose Oxyhemoglobin Carboxyhemoglobin Sodium 151 H Potassium Chloride Carbon Dioxide 37 H BUN Creatinine < 0.2 L Glucose 171 H POC Glucose 248 H Calcium Ferritin Total Bilirubin Alkaline Phosphatase Lactate Dehydrogenase Total Creatine Kinase CK-MB (CK-2) Rel Index Troponin T C-Reactive Protein Total Protein Albumin Prealbumin LDL Cholesterol Direct HDL Cholesterol Arterial Blood Glucose Arterial Blood Ionized Calcium Urine WBC (Auto) 03/11/20 03/11/20 03/12/20 17:09 23:52 04:39 WBC 19.9 H RBC 3.16 L Hgb 8.9 L Hct 27.5 L MCV MCH RDW 15.7 H Plt Count Lymph % (Auto) 6.8 L Drew % (Auto) Lymph # (Auto) Drew # (Auto) 1.2 H Seg Neutrophils % 86.0 H Seg Neuts % (Manual) Lymphocytes % (Manual) Monocytes % (Manual) Basophils % (Manual) Seg Neutrophils # 17.1 H Seg Neutrophils # Man Lymphocytes # (Manual) Monocytes # (Manual) Eosinophils # (Manual) Basophils # (Manual) PT INR D-Dimer ABG pH POC ABG pCO2 POC ABG pO2 ABG pO2 ABG HCO3 ABG O2 Saturation ABG Base Excess ABG Hemoglobin ABG Oxyhemoglobin ABG Potassium ABG Glucose Oxyhemoglobin Carboxyhemoglobin Sodium Potassium Chloride Carbon Dioxide BUN Creatinine Glucose POC Glucose 124 H 131 H Calcium Ferritin Total Bilirubin Alkaline Phosphatase Lactate Dehydrogenase Total Creatine Kinase CK-MB (CK-2) Rel Index Troponin T C-Reactive Protein Total Protein Albumin Prealbumin LDL Cholesterol Direct HDL Cholesterol Arterial Blood Glucose Arterial Blood Ionized Calcium Urine WBC (Auto) 11/15/20 11/15/20 11/15/20 04:39 05:28 11:34 WBC RBC Hgb Hct MCV MCH RDW Plt Count Lymph % (Auto) Drew % (Auto) Lymph # (Auto) Drew # (Auto) Seg Neutrophils % Seg Neuts % (Manual) Lymphocytes % (Manual) Monocytes % (Manual) Basophils % (Manual) Seg Neutrophils # Seg Neutrophils # Man Lymphocytes # (Manual) Monocytes # (Manual) Eosinophils # (Manual) Basophils # (Manual) PT INR D-Dimer ABG pH POC ABG pCO2 POC ABG pO2 ABG pO2 ABG HCO3 ABG O2 Saturation ABG Base Excess ABG Hemoglobin ABG Oxyhemoglobin ABG Potassium ABG Glucose Oxyhemoglobin Carboxyhemoglobin Sodium 147 H Potassium Chloride Carbon Dioxide 40 H BUN Creatinine < 0.2 L Glucose 175 H POC Glucose 167 H 144 H Calcium Ferritin Total Bilirubin Alkaline Phosphatase Lactate Dehydrogenase Total Creatine Kinase CK-MB (CK-2) Rel Index Troponin T C-Reactive Protein Total Protein Albumin Prealbumin LDL Cholesterol Direct HDL Cholesterol Arterial Blood Glucose Arterial Blood Ionized Calcium Urine WBC (Auto) 03/12/20 03/12/20 03/13/20 17:32 23:57 05:57 WBC RBC Hgb Hct MCV MCH RDW Plt Count Lymph % (Auto) Drew % (Auto) Lymph # (Auto) Drew # (Auto) Seg Neutrophils % Seg Neuts % (Manual) Lymphocytes % (Manual) Monocytes % (Manual) Basophils % (Manual) Seg Neutrophils # Seg Neutrophils # Man Lymphocytes # (Manual) Monocytes # (Manual) Eosinophils # (Manual) Basophils # (Manual) PT INR D-Dimer ABG pH POC ABG pCO2 POC ABG pO2 ABG pO2 ABG HCO3 ABG O2 Saturation ABG Base Excess ABG Hemoglobin ABG Oxyhemoglobin ABG Potassium ABG Glucose Oxyhemoglobin Carboxyhemoglobin Sodium Potassium Chloride Carbon Dioxide BUN Creatinine Glucose POC Glucose 141 H 137 H 161 H Calcium Ferritin Total Bilirubin Alkaline Phosphatase Lactate Dehydrogenase Total Creatine Kinase CK-MB (CK-2) Rel Index Troponin T C-Reactive Protein Total Protein Albumin Prealbumin LDL Cholesterol Direct HDL Cholesterol Arterial Blood Glucose Arterial Blood Ionized Calcium Urine WBC (Auto) 03/13/20 03/13/20 03/13/20 12:28 14:14 18:39 WBC RBC Hgb Hct MCV MCH RDW Plt Count Lymph % (Auto) Drew % (Auto) Lymph # (Auto) Drew # (Auto) Seg Neutrophils % Seg Neuts % (Manual) Lymphocytes % (Manual) Monocytes % (Manual) Basophils % (Manual) Seg Neutrophils # Seg Neutrophils # Man Lymphocytes # (Manual) Monocytes # (Manual) Eosinophils # (Manual) Basophils # (Manual) PT INR D-Dimer ABG pH POC ABG pCO2 POC ABG pO2 ABG pO2 ABG HCO3 ABG O2 Saturation ABG Base Excess ABG Hemoglobin ABG Oxyhemoglobin ABG Potassium ABG Glucose Oxyhemoglobin Carboxyhemoglobin Sodium Potassium Chloride Carbon Dioxide 39 H BUN Creatinine < 0.2 L Glucose 129 H POC Glucose 130 H 125 H Calcium Ferritin Total Bilirubin Alkaline Phosphatase Lactate Dehydrogenase Total Creatine Kinase CK-MB (CK-2) Rel Index Troponin T C-Reactive Protein Total Protein Albumin Prealbumin LDL Cholesterol Direct HDL Cholesterol Arterial Blood Glucose Arterial Blood Ionized Calcium Urine WBC (Auto) 03/13/20 03/14/20 03/14/20 23:33 05:24 08:07 WBC 16.8 H RBC 2.81 L Hgb 7.9 L Hct 23.9 L MCV MCH RDW 15.9 H Plt Count Lymph % (Auto) Drew % (Auto) Lymph # (Auto) Drew # (Auto) Seg Neutrophils % Seg Neuts % (Manual) 84.0 H Lymphocytes % (Manual) 10.0 L Monocytes % (Manual) Basophils % (Manual) Seg Neutrophils # Seg Neutrophils # Man 14.1 H Lymphocytes # (Manual) Monocytes # (Manual) Eosinophils # (Manual) Basophils # (Manual) PT INR D-Dimer ABG pH POC ABG pCO2 POC ABG pO2 ABG pO2 ABG HCO3 ABG O2 Saturation ABG Base Excess ABG Hemoglobin ABG Oxyhemoglobin ABG Potassium ABG Glucose Oxyhemoglobin Carboxyhemoglobin Sodium Potassium Chloride Carbon Dioxide BUN Creatinine Glucose POC Glucose 146 H 125 H Calcium Ferritin Total Bilirubin Alkaline Phosphatase Lactate Dehydrogenase Total Creatine Kinase CK-MB (CK-2) Rel Index Troponin T C-Reactive Protein Total Protein Albumin Prealbumin LDL Cholesterol Direct HDL Cholesterol Arterial Blood Glucose Arterial Blood Ionized Calcium Urine WBC (Auto) 03/14/20 03/14/20 03/14/20 08:07 12:21 18:26 WBC RBC Hgb Hct MCV MCH RDW Plt Count Lymph % (Auto) Drew % (Auto) Lymph # (Auto) Drew # (Auto) Seg Neutrophils % Seg Neuts % (Manual) Lymphocytes % (Manual) Monocytes % (Manual) Basophils % (Manual) Seg Neutrophils # Seg Neutrophils # Man Lymphocytes # (Manual) Monocytes # (Manual) Eosinophils # (Manual) Basophils # (Manual) PT INR D-Dimer ABG pH POC ABG pCO2 POC ABG pO2 ABG pO2 ABG HCO3 ABG O2 Saturation ABG Base Excess ABG Hemoglobin ABG Oxyhemoglobin ABG Potassium ABG Glucose Oxyhemoglobin Carboxyhemoglobin Sodium Potassium Chloride 97.0 L Carbon Dioxide 37 H BUN Creatinine < 0.2 L Glucose 129 H POC Glucose 109 H 142 H Calcium 8.3 L Ferritin Total Bilirubin Alkaline Phosphatase Lactate Dehydrogenase Total Creatine Kinase CK-MB (CK-2) Rel Index Troponin T C-Reactive Protein Total Protein Albumin Prealbumin LDL Cholesterol Direct HDL Cholesterol Arterial Blood Glucose Arterial Blood Ionized Calcium Urine WBC (Auto) 03/14/20 03/15/20 03/15/20 23:57 05:46 08:06 WBC 19.7 H RBC 3.29 L Hgb 9.1 L Hct 28.0 L MCV MCH RDW 15.9 H Plt Count Lymph % (Auto) Drew % (Auto) Lymph # (Auto) Drew # (Auto) Seg Neutrophils % Seg Neuts % (Manual) Lymphocytes % (Manual) Monocytes % (Manual) Basophils % (Manual) Seg Neutrophils # Seg Neutrophils # Man Lymphocytes # (Manual) Monocytes # (Manual) Eosinophils # (Manual) Basophils # (Manual) PT INR D-Dimer ABG pH POC ABG pCO2 POC ABG pO2 ABG pO2 ABG HCO3 ABG O2 Saturation ABG Base Excess ABG Hemoglobin ABG Oxyhemoglobin ABG Potassium ABG Glucose Oxyhemoglobin Carboxyhemoglobin Sodium Potassium Chloride Carbon Dioxide BUN Creatinine Glucose POC Glucose 157 H 118 H Calcium Ferritin Total Bilirubin Alkaline Phosphatase Lactate Dehydrogenase Total Creatine Kinase CK-MB (CK-2) Rel Index Troponin T C-Reactive Protein Total Protein Albumin Prealbumin LDL Cholesterol Direct HDL Cholesterol Arterial Blood Glucose Arterial Blood Ionized Calcium Urine WBC (Auto) 03/15/20 03/15/20 03/15/20 08:06 12:44 18:09 WBC RBC Hgb Hct MCV MCH RDW Plt Count Lymph % (Auto) Drew % (Auto) Lymph # (Auto) Drew # (Auto) Seg Neutrophils % Seg Neuts % (Manual) Lymphocytes % (Manual) Monocytes % (Manual) Basophils % (Manual) Seg Neutrophils # Seg Neutrophils # Man Lymphocytes # (Manual) Monocytes # (Manual) Eosinophils # (Manual) Basophils # (Manual) PT INR D-Dimer ABG pH POC ABG pCO2 POC ABG pO2 ABG pO2 ABG HCO3 ABG O2 Saturation ABG Base Excess ABG Hemoglobin ABG Oxyhemoglobin ABG Potassium ABG Glucose Oxyhemoglobin Carboxyhemoglobin Sodium 136 L Potassium Chloride 93.6 L Carbon Dioxide 37 H BUN Creatinine < 0.2 L Glucose 132 H POC Glucose 151 H 164 H Calcium Ferritin Total Bilirubin Alkaline Phosphatase Lactate Dehydrogenase Total Creatine Kinase CK-MB (CK-2) Rel Index Troponin T C-Reactive Protein Total Protein Albumin Prealbumin LDL Cholesterol Direct HDL Cholesterol Arterial Blood Glucose Arterial Blood Ionized Calcium Urine WBC (Auto) 03/15/20 03/16/20 03/16/20 23:26 05:39 11:58 WBC RBC Hgb Hct MCV MCH RDW Plt Count Lymph % (Auto) Drew % (Auto) Lymph # (Auto) Drew # (Auto) Seg Neutrophils % Seg Neuts % (Manual) Lymphocytes % (Manual) Monocytes % (Manual) Basophils % (Manual) Seg Neutrophils # Seg Neutrophils # Man Lymphocytes # (Manual) Monocytes # (Manual) Eosinophils # (Manual) Basophils # (Manual) PT INR D-Dimer ABG pH POC ABG pCO2 POC ABG pO2 ABG pO2 ABG HCO3 ABG O2 Saturation ABG Base Excess ABG Hemoglobin ABG Oxyhemoglobin ABG Potassium ABG Glucose Oxyhemoglobin Carboxyhemoglobin Sodium Potassium Chloride Carbon Dioxide BUN Creatinine Glucose POC Glucose 136 H 116 H 109 H Calcium Ferritin Total Bilirubin Alkaline Phosphatase Lactate Dehydrogenase Total Creatine Kinase CK-MB (CK-2) Rel Index Troponin T C-Reactive Protein Total Protein Albumin Prealbumin LDL Cholesterol Direct HDL Cholesterol Arterial Blood Glucose Arterial Blood Ionized Calcium Urine WBC (Auto) 03/16/20 03/17/20 03/17/20 23:56 04:40 04:40 WBC 18.0 H RBC 3.33 L Hgb 9.5 L Hct 28.8 L MCV MCH RDW 16.4 H Plt Count 499 H Lymph % (Auto) Drew % (Auto) Lymph # (Auto) Drew # (Auto) Seg Neutrophils % Seg Neuts % (Manual) 82.0 H Lymphocytes % (Manual) 8.0 L Monocytes % (Manual) Basophils % (Manual) Seg Neutrophils # Seg Neutrophils # Man 14.8 H Lymphocytes # (Manual) Monocytes # (Manual) 1.3 H Eosinophils # (Manual) Basophils # (Manual) 0.2 H PT INR D-Dimer ABG pH POC ABG pCO2 POC ABG pO2 ABG pO2 ABG HCO3 ABG O2 Saturation ABG Base Excess ABG Hemoglobin ABG Oxyhemoglobin ABG Potassium ABG Glucose Oxyhemoglobin Carboxyhemoglobin Sodium Potassium Chloride 97.7 L Carbon Dioxide 32 H BUN Creatinine < 0.2 L Glucose 114 H POC Glucose 131 H Calcium Ferritin Total Bilirubin Alkaline Phosphatase Lactate Dehydrogenase Total Creatine Kinase CK-MB (CK-2) Rel Index Troponin T C-Reactive Protein Total Protein Albumin Prealbumin LDL Cholesterol Direct HDL Cholesterol Arterial Blood Glucose Arterial Blood Ionized Calcium Urine WBC (Auto) 03/18/20 03/18/20 03/18/20 00:21 05:21 11:55 WBC RBC Hgb Hct MCV MCH RDW Plt Count Lymph % (Auto) Drew % (Auto) Lymph # (Auto) Drew # (Auto) Seg Neutrophils % Seg Neuts % (Manual) Lymphocytes % (Manual) Monocytes % (Manual) Basophils % (Manual) Seg Neutrophils # Seg Neutrophils # Man Lymphocytes # (Manual) Monocytes # (Manual) Eosinophils # (Manual) Basophils # (Manual) PT INR D-Dimer ABG pH POC ABG pCO2 POC ABG pO2 ABG pO2 ABG HCO3 ABG O2 Saturation ABG Base Excess ABG Hemoglobin ABG Oxyhemoglobin ABG Potassium ABG Glucose Oxyhemoglobin Carboxyhemoglobin Sodium Potassium Chloride Carbon Dioxide BUN Creatinine Glucose POC Glucose 124 H 138 H 119 H Calcium Ferritin Total Bilirubin Alkaline Phosphatase Lactate Dehydrogenase Total Creatine Kinase CK-MB (CK-2) Rel Index Troponin T C-Reactive Protein Total Protein Albumin Prealbumin LDL Cholesterol Direct HDL Cholesterol Arterial Blood Glucose Arterial Blood Ionized Calcium Urine WBC (Auto) 03/18/20 03/18/20 03/19/20 17:03 23:58 05:24 WBC RBC Hgb Hct MCV MCH RDW Plt Count Lymph % (Auto) Drew % (Auto) Lymph # (Auto) Drew # (Auto) Seg Neutrophils % Seg Neuts % (Manual) Lymphocytes % (Manual) Monocytes % (Manual) Basophils % (Manual) Seg Neutrophils # Seg Neutrophils # Man Lymphocytes # (Manual) Monocytes # (Manual) Eosinophils # (Manual) Basophils # (Manual) PT INR D-Dimer ABG pH POC ABG pCO2 POC ABG pO2 ABG pO2 ABG HCO3 ABG O2 Saturation ABG Base Excess ABG Hemoglobin ABG Oxyhemoglobin ABG Potassium ABG Glucose Oxyhemoglobin Carboxyhemoglobin Sodium Potassium Chloride Carbon Dioxide BUN Creatinine Glucose POC Glucose 128 H 128 H 115 H Calcium Ferritin Total Bilirubin Alkaline Phosphatase Lactate Dehydrogenase Total Creatine Kinase CK-MB (CK-2) Rel Index Troponin T C-Reactive Protein Total Protein Albumin Prealbumin LDL Cholesterol Direct HDL Cholesterol Arterial Blood Glucose Arterial Blood Ionized Calcium Urine WBC (Auto) 03/19/20 03/19/20 03/19/20 08:05 08:05 11:56 WBC 16.8 H RBC 3.36 L Hgb 9.4 L Hct 28.8 L MCV MCH RDW 17.4 H Plt Count 567 H Lymph % (Auto) 7.8 L Drew % (Auto) Lymph # (Auto) Drew # (Auto) 1.2 H Seg Neutrophils % 83.5 H Seg Neuts % (Manual) Lymphocytes % (Manual) Monocytes % (Manual) Basophils % (Manual) Seg Neutrophils # 14.1 H Seg Neutrophils # Man Lymphocytes # (Manual) Monocytes # (Manual) Eosinophils # (Manual) Basophils # (Manual) PT INR D-Dimer ABG pH POC ABG pCO2 POC ABG pO2 ABG pO2 ABG HCO3 ABG O2 Saturation ABG Base Excess ABG Hemoglobin ABG Oxyhemoglobin ABG Potassium ABG Glucose Oxyhemoglobin Carboxyhemoglobin Sodium Potassium Chloride Carbon Dioxide 36 H BUN Creatinine < 0.2 L Glucose 135 H POC Glucose 128 H Calcium Ferritin Total Bilirubin Alkaline Phosphatase Lactate Dehydrogenase Total Creatine Kinase CK-MB (CK-2) Rel Index Troponin T C-Reactive Protein Total Protein Albumin Prealbumin LDL Cholesterol Direct HDL Cholesterol Arterial Blood Glucose Arterial Blood Ionized Calcium Urine WBC (Auto) 03/19/20 03/20/20 03/20/20 23:59 05:12 16:52 WBC RBC Hgb Hct MCV MCH RDW Plt Count Lymph % (Auto) Drew % (Auto) Lymph # (Auto) Drew # (Auto) Seg Neutrophils % Seg Neuts % (Manual) Lymphocytes % (Manual) Monocytes % (Manual) Basophils % (Manual) Seg Neutrophils # Seg Neutrophils # Man Lymphocytes # (Manual) Monocytes # (Manual) Eosinophils # (Manual) Basophils # (Manual) PT INR D-Dimer ABG pH POC ABG pCO2 POC ABG pO2 ABG pO2 ABG HCO3 ABG O2 Saturation ABG Base Excess ABG Hemoglobin ABG Oxyhemoglobin ABG Potassium ABG Glucose Oxyhemoglobin Carboxyhemoglobin Sodium Potassium Chloride Carbon Dioxide BUN Creatinine Glucose POC Glucose 120 H 131 H 124 H Calcium Ferritin Total Bilirubin Alkaline Phosphatase Lactate Dehydrogenase Total Creatine Kinase CK-MB (CK-2) Rel Index Troponin T C-Reactive Protein Total Protein Albumin Prealbumin LDL Cholesterol Direct HDL Cholesterol Arterial Blood Glucose Arterial Blood Ionized Calcium Urine WBC (Auto) 03/20/20 03/21/20 03/21/20 23:35 04:50 07:35 WBC 15.2 H RBC 3.39 L Hgb 9.4 L Hct 29.4 L MCV MCH RDW 17.6 H Plt Count 518 H Lymph % (Auto) Drew % (Auto) Lymph # (Auto) Drew # (Auto) Seg Neutrophils % Seg Neuts % (Manual) 83.0 H Lymphocytes % (Manual) 10.0 L Monocytes % (Manual) Basophils % (Manual) 2.0 H Seg Neutrophils # Seg Neutrophils # Man 12.6 H Lymphocytes # (Manual) Monocytes # (Manual) Eosinophils # (Manual) Basophils # (Manual) 0.3 H PT INR D-Dimer ABG pH POC ABG pCO2 POC ABG pO2 ABG pO2 ABG HCO3 ABG O2 Saturation ABG Base Excess ABG Hemoglobin ABG Oxyhemoglobin ABG Potassium ABG Glucose Oxyhemoglobin Carboxyhemoglobin Sodium Potassium Chloride Carbon Dioxide BUN Creatinine Glucose POC Glucose 125 H 127 H Calcium Ferritin Total Bilirubin Alkaline Phosphatase Lactate Dehydrogenase Total Creatine Kinase CK-MB (CK-2) Rel Index Troponin T C-Reactive Protein Total Protein Albumin Prealbumin LDL Cholesterol Direct HDL Cholesterol Arterial Blood Glucose Arterial Blood Ionized Calcium Urine WBC (Auto) 03/21/20 03/21/20 03/21/20 07:35 11:45 17:22 WBC RBC Hgb Hct MCV MCH RDW Plt Count Lymph % (Auto) Drew % (Auto) Lymph # (Auto) Drew # (Auto) Seg Neutrophils % Seg Neuts % (Manual) Lymphocytes % (Manual) Monocytes % (Manual) Basophils % (Manual) Seg Neutrophils # Seg Neutrophils # Man Lymphocytes # (Manual) Monocytes # (Manual) Eosinophils # (Manual) Basophils # (Manual) PT INR D-Dimer ABG pH POC ABG pCO2 POC ABG pO2 ABG pO2 ABG HCO3 ABG O2 Saturation ABG Base Excess ABG Hemoglobin ABG Oxyhemoglobin ABG Potassium ABG Glucose Oxyhemoglobin Carboxyhemoglobin Sodium 136 L Potassium Chloride 97.7 L Carbon Dioxide 32 H BUN Creatinine < 0.2 L Glucose 103 H POC Glucose 126 H 120 H Calcium Ferritin Total Bilirubin Alkaline Phosphatase Lactate Dehydrogenase Total Creatine Kinase CK-MB (CK-2) Rel Index Troponin T C-Reactive Protein Total Protein Albumin Prealbumin LDL Cholesterol Direct HDL Cholesterol Arterial Blood Glucose Arterial Blood Ionized Calcium Urine WBC (Auto) 03/22/20 03/22/20 03/22/20 05:09 06:34 06:34 WBC 17.5 H RBC 3.52 L Hgb 10.0 L Hct 30.7 L MCV MCH RDW 17.5 H Plt Count 499 H Lymph % (Auto) Drew % (Auto) Lymph # (Auto) Drew # (Auto) Seg Neutrophils % Seg Neuts % (Manual) 80.0 H Lymphocytes % (Manual) 10.0 L Monocytes % (Manual) Basophils % (Manual) Seg Neutrophils # Seg Neutrophils # Man 14.0 H Lymphocytes # (Manual) Monocytes # (Manual) Eosinophils # (Manual) Basophils # (Manual) PT INR D-Dimer ABG pH POC ABG pCO2 POC ABG pO2 ABG pO2 ABG HCO3 ABG O2 Saturation ABG Base Excess ABG Hemoglobin ABG Oxyhemoglobin ABG Potassium ABG Glucose Oxyhemoglobin Carboxyhemoglobin Sodium Potassium Chloride 96.6 L Carbon Dioxide 38 H BUN Creatinine < 0.2 L Glucose 139 H POC Glucose 125 H Calcium Ferritin Total Bilirubin Alkaline Phosphatase Lactate Dehydrogenase Total Creatine Kinase CK-MB (CK-2) Rel Index Troponin T C-Reactive Protein Total Protein Albumin Prealbumin LDL Cholesterol Direct HDL Cholesterol Arterial Blood Glucose Arterial Blood Ionized Calcium Urine WBC (Auto) 03/22/20 03/22/20 03/22/20 11:45 18:00 23:32 WBC RBC Hgb Hct MCV MCH RDW Plt Count Lymph % (Auto) Drew % (Auto) Lymph # (Auto) Drew # (Auto) Seg Neutrophils % Seg Neuts % (Manual) Lymphocytes % (Manual) Monocytes % (Manual) Basophils % (Manual) Seg Neutrophils # Seg Neutrophils # Man Lymphocytes # (Manual) Monocytes # (Manual) Eosinophils # (Manual) Basophils # (Manual) PT INR D-Dimer ABG pH POC ABG pCO2 POC ABG pO2 ABG pO2 ABG HCO3 ABG O2 Saturation ABG Base Excess ABG Hemoglobin ABG Oxyhemoglobin ABG Potassium ABG Glucose Oxyhemoglobin Carboxyhemoglobin Sodium Potassium Chloride Carbon Dioxide BUN Creatinine Glucose POC Glucose 135 H 133 H Calcium Ferritin Total Bilirubin Alkaline Phosphatase Lactate Dehydrogenase Total Creatine Kinase CK-MB (CK-2) Rel Index Troponin T 0.113 H* C-Reactive Protein Total Protein Albumin Prealbumin LDL Cholesterol Direct HDL Cholesterol Arterial Blood Glucose Arterial Blood Ionized Calcium Urine WBC (Auto) 03/23/20 03/23/20 03/23/20 01:47 06:21 07:57 WBC RBC Hgb Hct MCV MCH RDW Plt Count Lymph % (Auto) Drew % (Auto) Lymph # (Auto) Drew # (Auto) Seg Neutrophils % Seg Neuts % (Manual) Lymphocytes % (Manual) Monocytes % (Manual) Basophils % (Manual) Seg Neutrophils # Seg Neutrophils # Man Lymphocytes # (Manual) Monocytes # (Manual) Eosinophils # (Manual) Basophils # (Manual) PT INR D-Dimer ABG pH POC ABG pCO2 POC ABG pO2 ABG pO2 ABG HCO3 ABG O2 Saturation ABG Base Excess ABG Hemoglobin ABG Oxyhemoglobin ABG Potassium ABG Glucose Oxyhemoglobin Carboxyhemoglobin Sodium Potassium Chloride Carbon Dioxide BUN Creatinine Glucose POC Glucose 130 H Calcium Ferritin Total Bilirubin Alkaline Phosphatase Lactate Dehydrogenase Total Creatine Kinase CK-MB (CK-2) Rel Index Troponin T 0.143 H* D 0.105 H* D C-Reactive Protein Total Protein Albumin Prealbumin LDL Cholesterol Direct HDL Cholesterol Arterial Blood Glucose Arterial Blood Ionized Calcium Urine WBC (Auto) 03/23/20 03/24/20 03/24/20 12:02 05:33 07:15 WBC 18.0 H RBC Hgb 11.0 L Hct 34.0 L MCV MCH RDW 17.4 H Plt Count 520 H Lymph % (Auto) Drew % (Auto) Lymph # (Auto) Drew # (Auto) Seg Neutrophils % Seg Neuts % (Manual) 88.0 H Lymphocytes % (Manual) 7.0 L Monocytes % (Manual) Basophils % (Manual) Seg Neutrophils # Seg Neutrophils # Man 15.8 H Lymphocytes # (Manual) Monocytes # (Manual) Eosinophils # (Manual) Basophils # (Manual) PT INR D-Dimer ABG pH POC ABG pCO2 POC ABG pO2 ABG pO2 ABG HCO3 ABG O2 Saturation ABG Base Excess ABG Hemoglobin ABG Oxyhemoglobin ABG Potassium ABG Glucose Oxyhemoglobin Carboxyhemoglobin Sodium Potassium Chloride Carbon Dioxide BUN Creatinine Glucose POC Glucose 137 H 112 H Calcium Ferritin Total Bilirubin Alkaline Phosphatase Lactate Dehydrogenase Total Creatine Kinase CK-MB (CK-2) Rel Index Troponin T C-Reactive Protein Total Protein Albumin Prealbumin LDL Cholesterol Direct HDL Cholesterol Arterial Blood Glucose Arterial Blood Ionized Calcium Urine WBC (Auto) 03/24/20 03/24/20 03/24/20 07:15 11:22 23:30 WBC RBC Hgb Hct MCV MCH RDW Plt Count Lymph % (Auto) Drew % (Auto) Lymph # (Auto) Drew # (Auto) Seg Neutrophils % Seg Neuts % (Manual) Lymphocytes % (Manual) Monocytes % (Manual) Basophils % (Manual) Seg Neutrophils # Seg Neutrophils # Man Lymphocytes # (Manual) Monocytes # (Manual) Eosinophils # (Manual) Basophils # (Manual) PT INR D-Dimer ABG pH POC ABG pCO2 POC ABG pO2 ABG pO2 ABG HCO3 ABG O2 Saturation ABG Base Excess ABG Hemoglobin ABG Oxyhemoglobin ABG Potassium ABG Glucose Oxyhemoglobin Carboxyhemoglobin Sodium Potassium Chloride 96.6 L Carbon Dioxide 38 H BUN Creatinine < 0.2 L Glucose 141 H POC Glucose 130 H 120 H Calcium Ferritin Total Bilirubin Alkaline Phosphatase Lactate Dehydrogenase Total Creatine Kinase CK-MB (CK-2) Rel Index Troponin T C-Reactive Protein Total Protein Albumin Prealbumin LDL Cholesterol Direct HDL Cholesterol Arterial Blood Glucose Arterial Blood Ionized Calcium Urine WBC (Auto) 03/25/20 03/25/20 03/25/20 05:48 17:53 23:18 WBC RBC Hgb Hct MCV MCH RDW Plt Count Lymph % (Auto) Drew % (Auto) Lymph # (Auto) Drew # (Auto) Seg Neutrophils % Seg Neuts % (Manual) Lymphocytes % (Manual) Monocytes % (Manual) Basophils % (Manual) Seg Neutrophils # Seg Neutrophils # Man Lymphocytes # (Manual) Monocytes # (Manual) Eosinophils # (Manual) Basophils # (Manual) PT INR D-Dimer ABG pH POC ABG pCO2 POC ABG pO2 ABG pO2 ABG HCO3 ABG O2 Saturation ABG Base Excess ABG Hemoglobin ABG Oxyhemoglobin ABG Potassium ABG Glucose Oxyhemoglobin Carboxyhemoglobin Sodium Potassium Chloride Carbon Dioxide BUN Creatinine Glucose POC Glucose 124 H 109 H 131 H Calcium Ferritin Total Bilirubin Alkaline Phosphatase Lactate Dehydrogenase Total Creatine Kinase CK-MB (CK-2) Rel Index Troponin T C-Reactive Protein Total Protein Albumin Prealbumin LDL Cholesterol Direct HDL Cholesterol Arterial Blood Glucose Arterial Blood Ionized Calcium Urine WBC (Auto) 03/26/20 03/26/20 03/26/20 05:21 08:49 08:49 WBC 19.7 H RBC Hgb 10.7 L Hct 33.5 L MCV MCH 27 L RDW 17.1 H Plt Count 480 H Lymph % (Auto) 5.7 L Drew % (Auto) Lymph # (Auto) 1.1 L Drew # (Auto) 1.2 H Seg Neutrophils % 87.7 H Seg Neuts % (Manual) Lymphocytes % (Manual) Monocytes % (Manual) Basophils % (Manual) Seg Neutrophils # 17.2 H Seg Neutrophils # Man Lymphocytes # (Manual) Monocytes # (Manual) Eosinophils # (Manual) Basophils # (Manual) PT INR D-Dimer ABG pH POC ABG pCO2 POC ABG pO2 ABG pO2 ABG HCO3 ABG O2 Saturation ABG Base Excess ABG Hemoglobin ABG Oxyhemoglobin ABG Potassium ABG Glucose Oxyhemoglobin Carboxyhemoglobin Sodium Potassium Chloride 97.2 L Carbon Dioxide 36 H BUN Creatinine < 0.2 L Glucose 127 H POC Glucose 116 H Calcium Ferritin Total Bilirubin Alkaline Phosphatase Lactate Dehydrogenase Total Creatine Kinase CK-MB (CK-2) Rel Index Troponin T C-Reactive Protein Total Protein Albumin Prealbumin LDL Cholesterol Direct HDL Cholesterol Arterial Blood Glucose Arterial Blood Ionized Calcium Urine WBC (Auto) 03/26/20 03/26/20 03/26/20 11:38 18:44 23:06 WBC RBC Hgb Hct MCV MCH RDW Plt Count Lymph % (Auto) Drew % (Auto) Lymph # (Auto) Drew # (Auto) Seg Neutrophils % Seg Neuts % (Manual) Lymphocytes % (Manual) Monocytes % (Manual) Basophils % (Manual) Seg Neutrophils # Seg Neutrophils # Man Lymphocytes # (Manual) Monocytes # (Manual) Eosinophils # (Manual) Basophils # (Manual) PT INR D-Dimer ABG pH POC ABG pCO2 POC ABG pO2 ABG pO2 ABG HCO3 ABG O2 Saturation ABG Base Excess ABG Hemoglobin ABG Oxyhemoglobin ABG Potassium ABG Glucose Oxyhemoglobin Carboxyhemoglobin Sodium Potassium Chloride Carbon Dioxide BUN Creatinine Glucose POC Glucose 120 H 111 H 134 H Calcium Ferritin Total Bilirubin Alkaline Phosphatase Lactate Dehydrogenase Total Creatine Kinase CK-MB (CK-2) Rel Index Troponin T C-Reactive Protein Total Protein Albumin Prealbumin LDL Cholesterol Direct HDL Cholesterol Arterial Blood Glucose Arterial Blood Ionized Calcium Urine WBC (Auto) 03/27/20 03/27/20 03/27/20 05:41 05:59 05:59 WBC 18.6 H RBC Hgb 10.1 L Hct 31.4 L MCV MCH RDW 17.2 H Plt Count Lymph % (Auto) 8.0 L Drew % (Auto) Lymph # (Auto) Drew # (Auto) 1.2 H Seg Neutrophils % 84.7 H Seg Neuts % (Manual) Lymphocytes % (Manual) Monocytes % (Manual) Basophils % (Manual) Seg Neutrophils # 15.8 H Seg Neutrophils # Man Lymphocytes # (Manual) Monocytes # (Manual) Eosinophils # (Manual) Basophils # (Manual) PT INR D-Dimer ABG pH POC ABG pCO2 POC ABG pO2 ABG pO2 ABG HCO3 ABG O2 Saturation ABG Base Excess ABG Hemoglobin ABG Oxyhemoglobin ABG Potassium ABG Glucose Oxyhemoglobin Carboxyhemoglobin Sodium Potassium Chloride Carbon Dioxide 34 H BUN Creatinine < 0.2 L Glucose 127 H POC Glucose 129 H Calcium Ferritin Total Bilirubin Alkaline Phosphatase Lactate Dehydrogenase Total Creatine Kinase CK-MB (CK-2) Rel Index Troponin T C-Reactive Protein Total Protein Albumin Prealbumin LDL Cholesterol Direct HDL Cholesterol Arterial Blood Glucose Arterial Blood Ionized Calcium Urine WBC (Auto) 03/27/20 03/27/20 03/28/20 17:28 23:22 05:23 WBC RBC Hgb Hct MCV MCH RDW Plt Count Lymph % (Auto) Drew % (Auto) Lymph # (Auto) Drew # (Auto) Seg Neutrophils % Seg Neuts % (Manual) Lymphocytes % (Manual) Monocytes % (Manual) Basophils % (Manual) Seg Neutrophils # Seg Neutrophils # Man Lymphocytes # (Manual) Monocytes # (Manual) Eosinophils # (Manual) Basophils # (Manual) PT INR D-Dimer ABG pH POC ABG pCO2 POC ABG pO2 ABG pO2 ABG HCO3 ABG O2 Saturation ABG Base Excess ABG Hemoglobin ABG Oxyhemoglobin ABG Potassium ABG Glucose Oxyhemoglobin Carboxyhemoglobin Sodium Potassium Chloride Carbon Dioxide BUN Creatinine Glucose POC Glucose 108 H 119 H 129 H Calcium Ferritin Total Bilirubin Alkaline Phosphatase Lactate Dehydrogenase Total Creatine Kinase CK-MB (CK-2) Rel Index Troponin T C-Reactive Protein Total Protein Albumin Prealbumin LDL Cholesterol Direct HDL Cholesterol Arterial Blood Glucose Arterial Blood Ionized Calcium Urine WBC (Auto) 03/28/20 03/28/20 03/28/20 10:28 10:28 11:36 WBC 23.6 H RBC 3.62 L Hgb 10.0 L Hct 30.8 L MCV MCH RDW 16.4 H Plt Count Lymph % (Auto) Drew % (Auto) Lymph # (Auto) Drew # (Auto) Seg Neutrophils % Seg Neuts % (Manual) 89.0 H Lymphocytes % (Manual) 5.0 L Monocytes % (Manual) Basophils % (Manual) Seg Neutrophils # Seg Neutrophils # Man 21.0 H Lymphocytes # (Manual) Monocytes # (Manual) 1.2 H Eosinophils # (Manual) Basophils # (Manual) 0.2 H PT INR D-Dimer ABG pH POC ABG pCO2 POC ABG pO2 ABG pO2 ABG HCO3 ABG O2 Saturation ABG Base Excess ABG Hemoglobin ABG Oxyhemoglobin ABG Potassium ABG Glucose Oxyhemoglobin Carboxyhemoglobin Sodium 134 L Potassium Chloride 94.2 L Carbon Dioxide 35 H BUN Creatinine < 0.2 L Glucose 134 H POC Glucose Calcium Ferritin Total Bilirubin Alkaline Phosphatase Lactate Dehydrogenase Total Creatine Kinase CK-MB (CK-2) Rel Index Troponin T C-Reactive Protein Total Protein Albumin Prealbumin LDL Cholesterol Direct HDL Cholesterol Arterial Blood Glucose Arterial Blood Ionized Calcium Urine WBC (Auto) 39.0 H 03/28/20 03/28/20 03/28/20 11:51 17:08 17:17 WBC RBC Hgb Hct MCV MCH RDW Plt Count Lymph % (Auto) Drew % (Auto) Lymph # (Auto) Drew # (Auto) Seg Neutrophils % Seg Neuts % (Manual) Lymphocytes % (Manual) Monocytes % (Manual) Basophils % (Manual) Seg Neutrophils # Seg Neutrophils # Man Lymphocytes # (Manual) Monocytes # (Manual) Eosinophils # (Manual) Basophils # (Manual) PT INR D-Dimer ABG pH POC ABG pCO2 POC ABG pO2 ABG pO2 ABG HCO3 ABG O2 Saturation ABG Base Excess ABG Hemoglobin ABG Oxyhemoglobin ABG Potassium ABG Glucose Oxyhemoglobin Carboxyhemoglobin Sodium Potassium Chloride Carbon Dioxide BUN Creatinine Glucose POC Glucose 123 H 112 H Calcium Ferritin Total Bilirubin Alkaline Phosphatase Lactate Dehydrogenase Total Creatine Kinase 47 L CK-MB (CK-2) Rel Index 4.6 H Troponin T 0.090 H C-Reactive Protein Total Protein Albumin Prealbumin LDL Cholesterol Direct HDL Cholesterol Arterial Blood Glucose Arterial Blood Ionized Calcium Urine WBC (Auto) 03/28/20 03/29/20 03/29/20 23:22 05:22 10:58 WBC RBC Hgb Hct MCV MCH RDW Plt Count Lymph % (Auto) Drew % (Auto) Lymph # (Auto) Drew # (Auto) Seg Neutrophils % Seg Neuts % (Manual) Lymphocytes % (Manual) Monocytes % (Manual) Basophils % (Manual) Seg Neutrophils # Seg Neutrophils # Man Lymphocytes # (Manual) Monocytes # (Manual) Eosinophils # (Manual) Basophils # (Manual) PT INR D-Dimer ABG pH POC ABG pCO2 POC ABG pO2 ABG pO2 ABG HCO3 ABG O2 Saturation ABG Base Excess ABG Hemoglobin ABG Oxyhemoglobin ABG Potassium ABG Glucose Oxyhemoglobin Carboxyhemoglobin Sodium Potassium Chloride Carbon Dioxide BUN Creatinine Glucose POC Glucose 122 H 116 H 133 H Calcium Ferritin Total Bilirubin Alkaline Phosphatase Lactate Dehydrogenase Total Creatine Kinase CK-MB (CK-2) Rel Index Troponin T C-Reactive Protein Total Protein Albumin Prealbumin LDL Cholesterol Direct HDL Cholesterol Arterial Blood Glucose Arterial Blood Ionized Calcium Urine WBC (Auto) 03/29/20 03/29/20 03/30/20 17:18 23:14 04:57 WBC RBC Hgb Hct MCV MCH RDW Plt Count Lymph % (Auto) Drew % (Auto) Lymph # (Auto) Drew # (Auto) Seg Neutrophils % Seg Neuts % (Manual) Lymphocytes % (Manual) Monocytes % (Manual) Basophils % (Manual) Seg Neutrophils # Seg Neutrophils # Man Lymphocytes # (Manual) Monocytes # (Manual) Eosinophils # (Manual) Basophils # (Manual) PT INR D-Dimer ABG pH POC ABG pCO2 POC ABG pO2 ABG pO2 ABG HCO3 ABG O2 Saturation ABG Base Excess ABG Hemoglobin ABG Oxyhemoglobin ABG Potassium ABG Glucose Oxyhemoglobin Carboxyhemoglobin Sodium Potassium Chloride Carbon Dioxide BUN Creatinine Glucose POC Glucose 111 H 114 H 130 H Calcium Ferritin Total Bilirubin Alkaline Phosphatase Lactate Dehydrogenase Total Creatine Kinase CK-MB (CK-2) Rel Index Troponin T C-Reactive Protein Total Protein Albumin Prealbumin LDL Cholesterol Direct HDL Cholesterol Arterial Blood Glucose Arterial Blood Ionized Calcium Urine WBC (Auto) 03/30/20 03/30/20 03/30/20 11:38 14:47 14:47 WBC 19.9 H RBC Hgb 10.9 L Hct 34.4 L MCV MCH 27 L RDW 16.5 H Plt Count 441 H Lymph % (Auto) 6.4 L Drew % (Auto) Lymph # (Auto) Drew # (Auto) 1.4 H Seg Neutrophils % 86.1 H Seg Neuts % (Manual) Lymphocytes % (Manual) Monocytes % (Manual) Basophils % (Manual) Seg Neutrophils # 17.1 H Seg Neutrophils # Man Lymphocytes # (Manual) Monocytes # (Manual) Eosinophils # (Manual) Basophils # (Manual) PT INR D-Dimer ABG pH POC ABG pCO2 POC ABG pO2 ABG pO2 ABG HCO3 ABG O2 Saturation ABG Base Excess ABG Hemoglobin ABG Oxyhemoglobin ABG Potassium ABG Glucose Oxyhemoglobin Carboxyhemoglobin Sodium 133 L Potassium Chloride 94.6 L Carbon Dioxide 33 H BUN Creatinine < 0.2 L Glucose 194 H POC Glucose 139 H Calcium Ferritin Total Bilirubin Alkaline Phosphatase Lactate Dehydrogenase Total Creatine Kinase CK-MB (CK-2) Rel Index Troponin T C-Reactive Protein Total Protein Albumin 2.8 L Prealbumin LDL Cholesterol Direct HDL Cholesterol Arterial Blood Glucose Arterial Blood Ionized Calcium Urine WBC (Auto) 03/30/20 03/31/20 03/31/20 17:07 05:02 15:21 WBC RBC Hgb Hct MCV MCH RDW Plt Count Lymph % (Auto) Drew % (Auto) Lymph # (Auto) Drew # (Auto) Seg Neutrophils % Seg Neuts % (Manual) Lymphocytes % (Manual) Monocytes % (Manual) Basophils % (Manual) Seg Neutrophils # Seg Neutrophils # Man Lymphocytes # (Manual) Monocytes # (Manual) Eosinophils # (Manual) Basophils # (Manual) PT INR D-Dimer ABG pH POC ABG pCO2 POC ABG pO2 ABG pO2 ABG HCO3 ABG O2 Saturation ABG Base Excess ABG Hemoglobin ABG Oxyhemoglobin ABG Potassium ABG Glucose Oxyhemoglobin Carboxyhemoglobin Sodium Potassium Chloride Carbon Dioxide BUN Creatinine Glucose POC Glucose 163 H 108 H 110 H Calcium Ferritin Total Bilirubin Alkaline Phosphatase Lactate Dehydrogenase Total Creatine Kinase CK-MB (CK-2) Rel Index Troponin T C-Reactive Protein Total Protein Albumin Prealbumin LDL Cholesterol Direct HDL Cholesterol Arterial Blood Glucose Arterial Blood Ionized Calcium Urine WBC (Auto) 03/31/20 03/31/20 04/01/20 17:58 23:19 05:09 WBC RBC Hgb Hct MCV MCH RDW Plt Count Lymph % (Auto) Drew % (Auto) Lymph # (Auto) Drew # (Auto) Seg Neutrophils % Seg Neuts % (Manual) Lymphocytes % (Manual) Monocytes % (Manual) Basophils % (Manual) Seg Neutrophils # Seg Neutrophils # Man Lymphocytes # (Manual) Monocytes # (Manual) Eosinophils # (Manual) Basophils # (Manual) PT INR D-Dimer ABG pH POC ABG pCO2 POC ABG pO2 ABG pO2 ABG HCO3 ABG O2 Saturation ABG Base Excess ABG Hemoglobin ABG Oxyhemoglobin ABG Potassium ABG Glucose Oxyhemoglobin Carboxyhemoglobin Sodium Potassium Chloride Carbon Dioxide BUN Creatinine Glucose POC Glucose 110 H 131 H 124 H Calcium Ferritin Total Bilirubin Alkaline Phosphatase Lactate Dehydrogenase Total Creatine Kinase CK-MB (CK-2) Rel Index Troponin T C-Reactive Protein Total Protein Albumin Prealbumin LDL Cholesterol Direct HDL Cholesterol Arterial Blood Glucose Arterial Blood Ionized Calcium Urine WBC (Auto) 04/01/20 04/01/20 04/01/20 11:50 17:01 23:21 WBC RBC Hgb Hct MCV MCH RDW Plt Count Lymph % (Auto) Drew % (Auto) Lymph # (Auto) Drew # (Auto) Seg Neutrophils % Seg Neuts % (Manual) Lymphocytes % (Manual) Monocytes % (Manual) Basophils % (Manual) Seg Neutrophils # Seg Neutrophils # Man Lymphocytes # (Manual) Monocytes # (Manual) Eosinophils # (Manual) Basophils # (Manual) PT INR D-Dimer ABG pH POC ABG pCO2 POC ABG pO2 ABG pO2 ABG HCO3 ABG O2 Saturation ABG Base Excess ABG Hemoglobin ABG Oxyhemoglobin ABG Potassium ABG Glucose Oxyhemoglobin Carboxyhemoglobin Sodium Potassium Chloride Carbon Dioxide BUN Creatinine Glucose POC Glucose 136 H 115 H 124 H Calcium Ferritin Total Bilirubin Alkaline Phosphatase Lactate Dehydrogenase Total Creatine Kinase CK-MB (CK-2) Rel Index Troponin T C-Reactive Protein Total Protein Albumin Prealbumin LDL Cholesterol Direct HDL Cholesterol Arterial Blood Glucose Arterial Blood Ionized Calcium Urine WBC (Auto) 04/02/20 04/02/20 04/02/20 05:27 11:58 17:58 WBC RBC Hgb Hct MCV MCH RDW Plt Count Lymph % (Auto) Drew % (Auto) Lymph # (Auto) Drew # (Auto) Seg Neutrophils % Seg Neuts % (Manual) Lymphocytes % (Manual) Monocytes % (Manual) Basophils % (Manual) Seg Neutrophils # Seg Neutrophils # Man Lymphocytes # (Manual) Monocytes # (Manual) Eosinophils # (Manual) Basophils # (Manual) PT INR D-Dimer ABG pH POC ABG pCO2 POC ABG pO2 ABG pO2 ABG HCO3 ABG O2 Saturation ABG Base Excess ABG Hemoglobin ABG Oxyhemoglobin ABG Potassium ABG Glucose Oxyhemoglobin Carboxyhemoglobin Sodium Potassium Chloride Carbon Dioxide BUN Creatinine Glucose POC Glucose 117 H 133 H 122 H Calcium Ferritin Total Bilirubin Alkaline Phosphatase Lactate Dehydrogenase Total Creatine Kinase CK-MB (CK-2) Rel Index Troponin T C-Reactive Protein Total Protein Albumin Prealbumin LDL Cholesterol Direct HDL Cholesterol Arterial Blood Glucose Arterial Blood Ionized Calcium Urine WBC (Auto) 04/02/20 04/03/20 04/03/20 23:12 05:11 11:11 WBC RBC Hgb Hct MCV MCH RDW Plt Count Lymph % (Auto) Drew % (Auto) Lymph # (Auto) Drew # (Auto) Seg Neutrophils % Seg Neuts % (Manual) Lymphocytes % (Manual) Monocytes % (Manual) Basophils % (Manual) Seg Neutrophils # Seg Neutrophils # Man Lymphocytes # (Manual) Monocytes # (Manual) Eosinophils # (Manual) Basophils # (Manual) PT INR D-Dimer ABG pH POC ABG pCO2 POC ABG pO2 ABG pO2 ABG HCO3 ABG O2 Saturation ABG Base Excess ABG Hemoglobin ABG Oxyhemoglobin ABG Potassium ABG Glucose Oxyhemoglobin Carboxyhemoglobin Sodium Potassium Chloride Carbon Dioxide BUN Creatinine Glucose POC Glucose 130 H 139 H 136 H Calcium Ferritin Total Bilirubin Alkaline Phosphatase Lactate Dehydrogenase Total Creatine Kinase CK-MB (CK-2) Rel Index Troponin T C-Reactive Protein Total Protein Albumin Prealbumin LDL Cholesterol Direct HDL Cholesterol Arterial Blood Glucose Arterial Blood Ionized Calcium Urine WBC (Auto) 04/03/20 04/03/20 04/04/20 16:51 23:25 05:29 WBC RBC Hgb Hct MCV MCH RDW Plt Count Lymph % (Auto) Drew % (Auto) Lymph # (Auto) Drew # (Auto) Seg Neutrophils % Seg Neuts % (Manual) Lymphocytes % (Manual) Monocytes % (Manual) Basophils % (Manual) Seg Neutrophils # Seg Neutrophils # Man Lymphocytes # (Manual) Monocytes # (Manual) Eosinophils # (Manual) Basophils # (Manual) PT INR D-Dimer ABG pH POC ABG pCO2 POC ABG pO2 ABG pO2 ABG HCO3 ABG O2 Saturation ABG Base Excess ABG Hemoglobin ABG Oxyhemoglobin ABG Potassium ABG Glucose Oxyhemoglobin Carboxyhemoglobin Sodium Potassium Chloride Carbon Dioxide BUN Creatinine Glucose POC Glucose 118 H 111 H 126 H Calcium Ferritin Total Bilirubin Alkaline Phosphatase Lactate Dehydrogenase Total Creatine Kinase CK-MB (CK-2) Rel Index Troponin T C-Reactive Protein Total Protein Albumin Prealbumin LDL Cholesterol Direct HDL Cholesterol Arterial Blood Glucose Arterial Blood Ionized Calcium Urine WBC (Auto) 04/04/20 04/04/20 04/04/20 11:47 17:41 23:05 WBC RBC Hgb Hct MCV MCH RDW Plt Count Lymph % (Auto) Drew % (Auto) Lymph # (Auto) Drew # (Auto) Seg Neutrophils % Seg Neuts % (Manual) Lymphocytes % (Manual) Monocytes % (Manual) Basophils % (Manual) Seg Neutrophils # Seg Neutrophils # Man Lymphocytes # (Manual) Monocytes # (Manual) Eosinophils # (Manual) Basophils # (Manual) PT INR D-Dimer ABG pH POC ABG pCO2 POC ABG pO2 ABG pO2 ABG HCO3 ABG O2 Saturation ABG Base Excess ABG Hemoglobin ABG Oxyhemoglobin ABG Potassium ABG Glucose Oxyhemoglobin Carboxyhemoglobin Sodium Potassium Chloride Carbon Dioxide BUN Creatinine Glucose POC Glucose 123 H 120 H 119 H Calcium Ferritin Total Bilirubin Alkaline Phosphatase Lactate Dehydrogenase Total Creatine Kinase CK-MB (CK-2) Rel Index Troponin T C-Reactive Protein Total Protein Albumin Prealbumin LDL Cholesterol Direct HDL Cholesterol Arterial Blood Glucose Arterial Blood Ionized Calcium Urine WBC (Auto) 04/05/20 04/05/20 04/05/20 05:14 12:16 18:48 WBC RBC Hgb Hct MCV MCH RDW Plt Count Lymph % (Auto) Drew % (Auto) Lymph # (Auto) Drew # (Auto) Seg Neutrophils % Seg Neuts % (Manual) Lymphocytes % (Manual) Monocytes % (Manual) Basophils % (Manual) Seg Neutrophils # Seg Neutrophils # Man Lymphocytes # (Manual) Monocytes # (Manual) Eosinophils # (Manual) Basophils # (Manual) PT INR D-Dimer ABG pH POC ABG pCO2 POC ABG pO2 ABG pO2 ABG HCO3 ABG O2 Saturation ABG Base Excess ABG Hemoglobin ABG Oxyhemoglobin ABG Potassium ABG Glucose Oxyhemoglobin Carboxyhemoglobin Sodium Potassium Chloride Carbon Dioxide BUN Creatinine Glucose POC Glucose 123 H 148 H 106 H Calcium Ferritin Total Bilirubin Alkaline Phosphatase Lactate Dehydrogenase Total Creatine Kinase CK-MB (CK-2) Rel Index Troponin T C-Reactive Protein Total Protein Albumin Prealbumin LDL Cholesterol Direct HDL Cholesterol Arterial Blood Glucose Arterial Blood Ionized Calcium Urine WBC (Auto) 04/06/20 04/06/20 04/06/20 00:47 03:26 08:24 WBC RBC Hgb Hct MCV MCH RDW Plt Count Lymph % (Auto) Drew % (Auto) Lymph # (Auto) Drew # (Auto) Seg Neutrophils % Seg Neuts % (Manual) Lymphocytes % (Manual) Monocytes % (Manual) Basophils % (Manual) Seg Neutrophils # Seg Neutrophils # Man Lymphocytes # (Manual) Monocytes # (Manual) Eosinophils # (Manual) Basophils # (Manual) PT INR D-Dimer ABG pH POC ABG pCO2 POC ABG pO2 ABG pO2 ABG HCO3 ABG O2 Saturation ABG Base Excess ABG Hemoglobin ABG Oxyhemoglobin ABG Potassium ABG Glucose Oxyhemoglobin Carboxyhemoglobin Sodium Potassium Chloride Carbon Dioxide BUN Creatinine Glucose POC Glucose 129 H 134 H 131 H Calcium Ferritin Total Bilirubin Alkaline Phosphatase Lactate Dehydrogenase Total Creatine Kinase CK-MB (CK-2) Rel Index Troponin T C-Reactive Protein Total Protein Albumin Prealbumin LDL Cholesterol Direct HDL Cholesterol Arterial Blood Glucose Arterial Blood Ionized Calcium Urine WBC (Auto) 04/06/20 04/06/20 04/06/20 11:16 16:27 23:01 WBC RBC Hgb Hct MCV MCH RDW Plt Count Lymph % (Auto) Drew % (Auto) Lymph # (Auto) Drew # (Auto) Seg Neutrophils % Seg Neuts % (Manual) Lymphocytes % (Manual) Monocytes % (Manual) Basophils % (Manual) Seg Neutrophils # Seg Neutrophils # Man Lymphocytes # (Manual) Monocytes # (Manual) Eosinophils # (Manual) Basophils # (Manual) PT INR D-Dimer ABG pH POC ABG pCO2 POC ABG pO2 ABG pO2 ABG HCO3 ABG O2 Saturation ABG Base Excess ABG Hemoglobin ABG Oxyhemoglobin ABG Potassium ABG Glucose Oxyhemoglobin Carboxyhemoglobin Sodium Potassium Chloride Carbon Dioxide BUN Creatinine Glucose POC Glucose 131 H 107 H 125 H Calcium Ferritin Total Bilirubin Alkaline Phosphatase Lactate Dehydrogenase Total Creatine Kinase CK-MB (CK-2) Rel Index Troponin T C-Reactive Protein Total Protein Albumin Prealbumin LDL Cholesterol Direct HDL Cholesterol Arterial Blood Glucose Arterial Blood Ionized Calcium Urine WBC (Auto) 04/07/20 04/07/20 04/07/20 05:24 12:41 17:40 WBC RBC Hgb Hct MCV MCH RDW Plt Count Lymph % (Auto) Drew % (Auto) Lymph # (Auto) Drew # (Auto) Seg Neutrophils % Seg Neuts % (Manual) Lymphocytes % (Manual) Monocytes % (Manual) Basophils % (Manual) Seg Neutrophils # Seg Neutrophils # Man Lymphocytes # (Manual) Monocytes # (Manual) Eosinophils # (Manual) Basophils # (Manual) PT INR D-Dimer ABG pH POC ABG pCO2 POC ABG pO2 ABG pO2 ABG HCO3 ABG O2 Saturation ABG Base Excess ABG Hemoglobin ABG Oxyhemoglobin ABG Potassium ABG Glucose Oxyhemoglobin Carboxyhemoglobin Sodium Potassium Chloride Carbon Dioxide BUN Creatinine Glucose POC Glucose 125 H 145 H 123 H Calcium Ferritin Total Bilirubin Alkaline Phosphatase Lactate Dehydrogenase Total Creatine Kinase CK-MB (CK-2) Rel Index Troponin T C-Reactive Protein Total Protein Albumin Prealbumin LDL Cholesterol Direct HDL Cholesterol Arterial Blood Glucose Arterial Blood Ionized Calcium Urine WBC (Auto) 04/07/20 04/08/20 04/08/20 23:22 05:40 11:29 WBC RBC Hgb Hct MCV MCH RDW Plt Count Lymph % (Auto) Drew % (Auto) Lymph # (Auto) Drew # (Auto) Seg Neutrophils % Seg Neuts % (Manual) Lymphocytes % (Manual) Monocytes % (Manual) Basophils % (Manual) Seg Neutrophils # Seg Neutrophils # Man Lymphocytes # (Manual) Monocytes # (Manual) Eosinophils # (Manual) Basophils # (Manual) PT INR D-Dimer ABG pH POC ABG pCO2 POC ABG pO2 ABG pO2 ABG HCO3 ABG O2 Saturation ABG Base Excess ABG Hemoglobin ABG Oxyhemoglobin ABG Potassium ABG Glucose Oxyhemoglobin Carboxyhemoglobin Sodium Potassium Chloride Carbon Dioxide BUN Creatinine Glucose POC Glucose 133 H 125 H 116 H Calcium Ferritin Total Bilirubin Alkaline Phosphatase Lactate Dehydrogenase Total Creatine Kinase CK-MB (CK-2) Rel Index Troponin T C-Reactive Protein Total Protein Albumin Prealbumin LDL Cholesterol Direct HDL Cholesterol Arterial Blood Glucose Arterial Blood Ionized Calcium Urine WBC (Auto) 04/08/20 04/09/20 04/09/20 17:43 05:47 12:22 WBC RBC Hgb Hct MCV MCH RDW Plt Count Lymph % (Auto) Drew % (Auto) Lymph # (Auto) Drew # (Auto) Seg Neutrophils % Seg Neuts % (Manual) Lymphocytes % (Manual) Monocytes % (Manual) Basophils % (Manual) Seg Neutrophils # Seg Neutrophils # Man Lymphocytes # (Manual) Monocytes # (Manual) Eosinophils # (Manual) Basophils # (Manual) PT INR D-Dimer ABG pH POC ABG pCO2 POC ABG pO2 ABG pO2 ABG HCO3 ABG O2 Saturation ABG Base Excess ABG Hemoglobin ABG Oxyhemoglobin ABG Potassium ABG Glucose Oxyhemoglobin Carboxyhemoglobin Sodium Potassium Chloride Carbon Dioxide BUN Creatinine Glucose POC Glucose 123 H 108 H 116 H Calcium Ferritin Total Bilirubin Alkaline Phosphatase Lactate Dehydrogenase Total Creatine Kinase CK-MB (CK-2) Rel Index Troponin T C-Reactive Protein Total Protein Albumin Prealbumin LDL Cholesterol Direct HDL Cholesterol Arterial Blood Glucose Arterial Blood Ionized Calcium Urine WBC (Auto) 04/09/20 04/09/20 04/10/20 17:24 23:52 06:10 WBC RBC Hgb Hct MCV MCH RDW Plt Count Lymph % (Auto) Drew % (Auto) Lymph # (Auto) Drew # (Auto) Seg Neutrophils % Seg Neuts % (Manual) Lymphocytes % (Manual) Monocytes % (Manual) Basophils % (Manual) Seg Neutrophils # Seg Neutrophils # Man Lymphocytes # (Manual) Monocytes # (Manual) Eosinophils # (Manual) Basophils # (Manual) PT INR D-Dimer ABG pH POC ABG pCO2 POC ABG pO2 ABG pO2 ABG HCO3 ABG O2 Saturation ABG Base Excess ABG Hemoglobin ABG Oxyhemoglobin ABG Potassium ABG Glucose Oxyhemoglobin Carboxyhemoglobin Sodium Potassium Chloride Carbon Dioxide BUN Creatinine Glucose POC Glucose 108 H 126 H 122 H Calcium Ferritin Total Bilirubin Alkaline Phosphatase Lactate Dehydrogenase Total Creatine Kinase CK-MB (CK-2) Rel Index Troponin T C-Reactive Protein Total Protein Albumin Prealbumin LDL Cholesterol Direct HDL Cholesterol Arterial Blood Glucose Arterial Blood Ionized Calcium Urine WBC (Auto) 04/10/20 04/10/20 04/10/20 11:27 18:11 23:24 WBC RBC Hgb Hct MCV MCH RDW Plt Count Lymph % (Auto) Drew % (Auto) Lymph # (Auto) Drew # (Auto) Seg Neutrophils % Seg Neuts % (Manual) Lymphocytes % (Manual) Monocytes % (Manual) Basophils % (Manual) Seg Neutrophils # Seg Neutrophils # Man Lymphocytes # (Manual) Monocytes # (Manual) Eosinophils # (Manual) Basophils # (Manual) PT INR D-Dimer ABG pH POC ABG pCO2 POC ABG pO2 ABG pO2 ABG HCO3 ABG O2 Saturation ABG Base Excess ABG Hemoglobin ABG Oxyhemoglobin ABG Potassium ABG Glucose Oxyhemoglobin Carboxyhemoglobin Sodium Potassium Chloride Carbon Dioxide BUN Creatinine Glucose POC Glucose 129 H 125 H 107 H Calcium Ferritin Total Bilirubin Alkaline Phosphatase Lactate Dehydrogenase Total Creatine Kinase CK-MB (CK-2) Rel Index Troponin T C-Reactive Protein Total Protein Albumin Prealbumin LDL Cholesterol Direct HDL Cholesterol Arterial Blood Glucose Arterial Blood Ionized Calcium Urine WBC (Auto) 04/11/20 04/11/20 04/11/20 05:28 11:46 23:49 WBC RBC Hgb Hct MCV MCH RDW Plt Count Lymph % (Auto) Drew % (Auto) Lymph # (Auto) Drew # (Auto) Seg Neutrophils % Seg Neuts % (Manual) Lymphocytes % (Manual) Monocytes % (Manual) Basophils % (Manual) Seg Neutrophils # Seg Neutrophils # Man Lymphocytes # (Manual) Monocytes # (Manual) Eosinophils # (Manual) Basophils # (Manual) PT INR D-Dimer ABG pH POC ABG pCO2 POC ABG pO2 ABG pO2 ABG HCO3 ABG O2 Saturation ABG Base Excess ABG Hemoglobin ABG Oxyhemoglobin ABG Potassium ABG Glucose Oxyhemoglobin Carboxyhemoglobin Sodium Potassium Chloride Carbon Dioxide BUN Creatinine Glucose POC Glucose 122 H 122 H 116 H Calcium Ferritin Total Bilirubin Alkaline Phosphatase Lactate Dehydrogenase Total Creatine Kinase CK-MB (CK-2) Rel Index Troponin T C-Reactive Protein Total Protein Albumin Prealbumin LDL Cholesterol Direct HDL Cholesterol Arterial Blood Glucose Arterial Blood Ionized Calcium Urine WBC (Auto) 04/12/20 04/12/20 04/12/20 09:07 09:07 11:39 WBC 13.1 H RBC 3.59 L Hgb 9.5 L Hct 29.8 L MCV 83 L MCH 26 L RDW 16.6 H Plt Count 591 H Lymph % (Auto) Drew % (Auto) Lymph # (Auto) Drew # (Auto) Seg Neutrophils % Seg Neuts % (Manual) 86.0 H Lymphocytes % (Manual) 7.0 L Monocytes % (Manual) Basophils % (Manual) Seg Neutrophils # Seg Neutrophils # Man 11.3 H Lymphocytes # (Manual) 0.9 L Monocytes # (Manual) Eosinophils # (Manual) Basophils # (Manual) PT INR D-Dimer ABG pH POC ABG pCO2 POC ABG pO2 ABG pO2 ABG HCO3 ABG O2 Saturation ABG Base Excess ABG Hemoglobin ABG Oxyhemoglobin ABG Potassium ABG Glucose Oxyhemoglobin Carboxyhemoglobin Sodium Potassium Chloride Carbon Dioxide 36 H BUN Creatinine < 0.2 L Glucose 132 H POC Glucose 136 H Calcium Ferritin Total Bilirubin Alkaline Phosphatase Lactate Dehydrogenase Total Creatine Kinase CK-MB (CK-2) Rel Index Troponin T C-Reactive Protein Total Protein Albumin 2.7 L Prealbumin LDL Cholesterol Direct HDL Cholesterol Arterial Blood Glucose Arterial Blood Ionized Calcium Urine WBC (Auto) 04/12/20 04/12/20 04/13/20 18:13 23:07 05:45 WBC RBC Hgb Hct MCV MCH RDW Plt Count Lymph % (Auto) Drew % (Auto) Lymph # (Auto) Drew # (Auto) Seg Neutrophils % Seg Neuts % (Manual) Lymphocytes % (Manual) Monocytes % (Manual) Basophils % (Manual) Seg Neutrophils # Seg Neutrophils # Man Lymphocytes # (Manual) Monocytes # (Manual) Eosinophils # (Manual) Basophils # (Manual) PT INR D-Dimer ABG pH POC ABG pCO2 POC ABG pO2 ABG pO2 ABG HCO3 ABG O2 Saturation ABG Base Excess ABG Hemoglobin ABG Oxyhemoglobin ABG Potassium ABG Glucose Oxyhemoglobin Carboxyhemoglobin Sodium Potassium Chloride Carbon Dioxide BUN Creatinine Glucose POC Glucose 107 H 106 H 125 H Calcium Ferritin Total Bilirubin Alkaline Phosphatase Lactate Dehydrogenase Total Creatine Kinase CK-MB (CK-2) Rel Index Troponin T C-Reactive Protein Total Protein Albumin Prealbumin LDL Cholesterol Direct HDL Cholesterol Arterial Blood Glucose Arterial Blood Ionized Calcium Urine WBC (Auto) 04/13/20 04/13/20 04/13/20 11:18 17:56 23:33 WBC RBC Hgb Hct MCV MCH RDW Plt Count Lymph % (Auto) Drew % (Auto) Lymph # (Auto) Drew # (Auto) Seg Neutrophils % Seg Neuts % (Manual) Lymphocytes % (Manual) Monocytes % (Manual) Basophils % (Manual) Seg Neutrophils # Seg Neutrophils # Man Lymphocytes # (Manual) Monocytes # (Manual) Eosinophils # (Manual) Basophils # (Manual) PT INR D-Dimer ABG pH POC ABG pCO2 POC ABG pO2 ABG pO2 ABG HCO3 ABG O2 Saturation ABG Base Excess ABG Hemoglobin ABG Oxyhemoglobin ABG Potassium ABG Glucose Oxyhemoglobin Carboxyhemoglobin Sodium Potassium Chloride Carbon Dioxide BUN Creatinine Glucose POC Glucose 133 H 110 H 114 H Calcium Ferritin Total Bilirubin Alkaline Phosphatase Lactate Dehydrogenase Total Creatine Kinase CK-MB (CK-2) Rel Index Troponin T C-Reactive Protein Total Protein Albumin Prealbumin LDL Cholesterol Direct HDL Cholesterol Arterial Blood Glucose Arterial Blood Ionized Calcium Urine WBC (Auto) 04/14/20 04/14/20 04/14/20 05:58 11:45 17:48 WBC RBC Hgb Hct MCV MCH RDW Plt Count Lymph % (Auto) Drew % (Auto) Lymph # (Auto) Drew # (Auto) Seg Neutrophils % Seg Neuts % (Manual) Lymphocytes % (Manual) Monocytes % (Manual) Basophils % (Manual) Seg Neutrophils # Seg Neutrophils # Man Lymphocytes # (Manual) Monocytes # (Manual) Eosinophils # (Manual) Basophils # (Manual) PT INR D-Dimer ABG pH POC ABG pCO2 POC ABG pO2 ABG pO2 ABG HCO3 ABG O2 Saturation ABG Base Excess ABG Hemoglobin ABG Oxyhemoglobin ABG Potassium ABG Glucose Oxyhemoglobin Carboxyhemoglobin Sodium Potassium Chloride Carbon Dioxide BUN Creatinine Glucose POC Glucose 115 H 122 H 124 H Calcium Ferritin Total Bilirubin Alkaline Phosphatase Lactate Dehydrogenase Total Creatine Kinase CK-MB (CK-2) Rel Index Troponin T C-Reactive Protein Total Protein Albumin Prealbumin LDL Cholesterol Direct HDL Cholesterol Arterial Blood Glucose Arterial Blood Ionized Calcium Urine WBC (Auto) 04/15/20 04/15/20 04/15/20 00:11 05:38 11:31 WBC RBC Hgb Hct MCV MCH RDW Plt Count Lymph % (Auto) Drew % (Auto) Lymph # (Auto) Drew # (Auto) Seg Neutrophils % Seg Neuts % (Manual) Lymphocytes % (Manual) Monocytes % (Manual) Basophils % (Manual) Seg Neutrophils # Seg Neutrophils # Man Lymphocytes # (Manual) Monocytes # (Manual) Eosinophils # (Manual) Basophils # (Manual) PT INR D-Dimer ABG pH POC ABG pCO2 POC ABG pO2 ABG pO2 ABG HCO3 ABG O2 Saturation ABG Base Excess ABG Hemoglobin ABG Oxyhemoglobin ABG Potassium ABG Glucose Oxyhemoglobin Carboxyhemoglobin Sodium Potassium Chloride Carbon Dioxide BUN Creatinine Glucose POC Glucose 120 H 109 H 123 H Calcium Ferritin Total Bilirubin Alkaline Phosphatase Lactate Dehydrogenase Total Creatine Kinase CK-MB (CK-2) Rel Index Troponin T C-Reactive Protein Total Protein Albumin Prealbumin LDL Cholesterol Direct HDL Cholesterol Arterial Blood Glucose Arterial Blood Ionized Calcium Urine WBC (Auto) 04/15/20 04/16/20 04/16/20 17:35 06:00 11:29 WBC RBC Hgb Hct MCV MCH RDW Plt Count Lymph % (Auto) Drew % (Auto) Lymph # (Auto) Drew # (Auto) Seg Neutrophils % Seg Neuts % (Manual) Lymphocytes % (Manual) Monocytes % (Manual) Basophils % (Manual) Seg Neutrophils # Seg Neutrophils # Man Lymphocytes # (Manual) Monocytes # (Manual) Eosinophils # (Manual) Basophils # (Manual) PT INR D-Dimer ABG pH POC ABG pCO2 POC ABG pO2 ABG pO2 ABG HCO3 ABG O2 Saturation ABG Base Excess ABG Hemoglobin ABG Oxyhemoglobin ABG Potassium ABG Glucose Oxyhemoglobin Carboxyhemoglobin Sodium Potassium Chloride Carbon Dioxide BUN Creatinine Glucose POC Glucose 111 H 142 H 108 H Calcium Ferritin Total Bilirubin Alkaline Phosphatase Lactate Dehydrogenase Total Creatine Kinase CK-MB (CK-2) Rel Index Troponin T C-Reactive Protein Total Protein Albumin Prealbumin LDL Cholesterol Direct HDL Cholesterol Arterial Blood Glucose Arterial Blood Ionized Calcium Urine WBC (Auto) 04/17/20 04/17/20 04/17/20 05:09 06:53 06:53 WBC 14.2 H RBC Hgb 10.1 L Hct 31.5 L MCV MCH 27 L RDW 17.2 H Plt Count 643 H Lymph % (Auto) Drew % (Auto) Lymph # (Auto) Drew # (Auto) Seg Neutrophils % Seg Neuts % (Manual) Lymphocytes % (Manual) Monocytes % (Manual) Basophils % (Manual) Seg Neutrophils # Seg Neutrophils # Man Lymphocytes # (Manual) Monocytes # (Manual) Eosinophils # (Manual) Basophils # (Manual) PT INR D-Dimer ABG pH POC ABG pCO2 POC ABG pO2 ABG pO2 ABG HCO3 ABG O2 Saturation ABG Base Excess ABG Hemoglobin ABG Oxyhemoglobin ABG Potassium ABG Glucose Oxyhemoglobin Carboxyhemoglobin Sodium Potassium Chloride 97.7 L Carbon Dioxide 38 H BUN Creatinine < 0.2 L Glucose 126 H POC Glucose 131 H Calcium Ferritin Total Bilirubin Alkaline Phosphatase Lactate Dehydrogenase Total Creatine Kinase CK-MB (CK-2) Rel Index Troponin T C-Reactive Protein Total Protein Albumin Prealbumin LDL Cholesterol Direct HDL Cholesterol Arterial Blood Glucose Arterial Blood Ionized Calcium Urine WBC (Auto) 04/17/20 04/18/20 04/18/20 11:21 00:23 04:01 WBC 15.3 H RBC Hgb 10.1 L Hct 31.9 L MCV 82 L MCH 26 L RDW 17.2 H Plt Count 665 H Lymph % (Auto) 12.9 L Drew % (Auto) Lymph # (Auto) Drew # (Auto) 1.1 H Seg Neutrophils % 78.0 H Seg Neuts % (Manual) Lymphocytes % (Manual) Monocytes % (Manual) Basophils % (Manual) Seg Neutrophils # 11.9 H Seg Neutrophils # Man Lymphocytes # (Manual) Monocytes # (Manual) Eosinophils # (Manual) Basophils # (Manual) PT INR D-Dimer ABG pH POC ABG pCO2 POC ABG pO2 ABG pO2 ABG HCO3 ABG O2 Saturation ABG Base Excess ABG Hemoglobin ABG Oxyhemoglobin ABG Potassium ABG Glucose Oxyhemoglobin Carboxyhemoglobin Sodium Potassium Chloride Carbon Dioxide BUN Creatinine Glucose POC Glucose 140 H 125 H Calcium Ferritin Total Bilirubin Alkaline Phosphatase Lactate Dehydrogenase Total Creatine Kinase CK-MB (CK-2) Rel Index Troponin T C-Reactive Protein Total Protein Albumin Prealbumin LDL Cholesterol Direct HDL Cholesterol Arterial Blood Glucose Arterial Blood Ionized Calcium Urine WBC (Auto) 04/18/20 04/18/20 04/18/20 04:01 11:29 17:30 WBC RBC Hgb Hct MCV MCH RDW Plt Count Lymph % (Auto) Drew % (Auto) Lymph # (Auto) Drew # (Auto) Seg Neutrophils % Seg Neuts % (Manual) Lymphocytes % (Manual) Monocytes % (Manual) Basophils % (Manual) Seg Neutrophils # Seg Neutrophils # Man Lymphocytes # (Manual) Monocytes # (Manual) Eosinophils # (Manual) Basophils # (Manual) PT INR D-Dimer ABG pH POC ABG pCO2 POC ABG pO2 ABG pO2 ABG HCO3 ABG O2 Saturation ABG Base Excess ABG Hemoglobin ABG Oxyhemoglobin ABG Potassium ABG Glucose Oxyhemoglobin Carboxyhemoglobin Sodium Potassium Chloride 97.0 L Carbon Dioxide 38 H BUN Creatinine < 0.2 L Glucose 117 H POC Glucose 136 H 107 H Calcium Ferritin Total Bilirubin Alkaline Phosphatase Lactate Dehydrogenase Total Creatine Kinase CK-MB (CK-2) Rel Index Troponin T C-Reactive Protein Total Protein Albumin Prealbumin LDL Cholesterol Direct HDL Cholesterol Arterial Blood Glucose Arterial Blood Ionized Calcium Urine WBC (Auto) 04/18/20 04/19/20 04/19/20 23:19 06:51 06:51 WBC 12.2 H RBC Hgb 9.8 L Hct 31.1 L MCV 82 L MCH 26 L RDW 17.2 H Plt Count 549 H Lymph % (Auto) 6.5 L Drew % (Auto) Lymph # (Auto) 0.8 L Drew # (Auto) Seg Neutrophils % 86.7 H Seg Neuts % (Manual) Lymphocytes % (Manual) Monocytes % (Manual) Basophils % (Manual) Seg Neutrophils # 10.6 H Seg Neutrophils # Man Lymphocytes # (Manual) Monocytes # (Manual) Eosinophils # (Manual) Basophils # (Manual) PT INR D-Dimer ABG pH POC ABG pCO2 POC ABG pO2 ABG pO2 ABG HCO3 ABG O2 Saturation ABG Base Excess ABG Hemoglobin ABG Oxyhemoglobin ABG Potassium ABG Glucose Oxyhemoglobin Carboxyhemoglobin Sodium Potassium Chloride 97.8 L Carbon Dioxide 38 H BUN Creatinine < 0.2 L Glucose 123 H POC Glucose 127 H Calcium Ferritin Total Bilirubin Alkaline Phosphatase Lactate Dehydrogenase Total Creatine Kinase CK-MB (CK-2) Rel Index Troponin T C-Reactive Protein Total Protein Albumin Prealbumin LDL Cholesterol Direct HDL Cholesterol Arterial Blood Glucose Arterial Blood Ionized Calcium Urine WBC (Auto) 04/19/20 04/19/20 04/20/20 13:41 18:33 05:56 WBC RBC Hgb Hct MCV MCH RDW Plt Count Lymph % (Auto) Drew % (Auto) Lymph # (Auto) Drew # (Auto) Seg Neutrophils % Seg Neuts % (Manual) Lymphocytes % (Manual) Monocytes % (Manual) Basophils % (Manual) Seg Neutrophils # Seg Neutrophils # Man Lymphocytes # (Manual) Monocytes # (Manual) Eosinophils # (Manual) Basophils # (Manual) PT INR D-Dimer ABG pH POC ABG pCO2 POC ABG pO2 ABG pO2 ABG HCO3 ABG O2 Saturation ABG Base Excess ABG Hemoglobin ABG Oxyhemoglobin ABG Potassium ABG Glucose Oxyhemoglobin Carboxyhemoglobin Sodium Potassium Chloride Carbon Dioxide BUN Creatinine Glucose POC Glucose 116 H 124 H 130 H Calcium Ferritin Total Bilirubin Alkaline Phosphatase Lactate Dehydrogenase Total Creatine Kinase CK-MB (CK-2) Rel Index Troponin T C-Reactive Protein Total Protein Albumin Prealbumin LDL Cholesterol Direct HDL Cholesterol Arterial Blood Glucose Arterial Blood Ionized Calcium Urine WBC (Auto) 04/20/20 04/20/20 04/20/20 06:28 06:28 11:46 WBC RBC Hgb 10.2 L Hct 31.5 L MCV 82 L MCH 27 L RDW 17.1 H Plt Count 546 H Lymph % (Auto) 10.0 L Drew % (Auto) 9.8 H Lymph # (Auto) 1.1 L Drew # (Auto) 1.1 H Seg Neutrophils % 78.4 H Seg Neuts % (Manual) Lymphocytes % (Manual) Monocytes % (Manual) Basophils % (Manual) Seg Neutrophils # 8.5 H Seg Neutrophils # Man Lymphocytes # (Manual) Monocytes # (Manual) Eosinophils # (Manual) Basophils # (Manual) PT INR D-Dimer ABG pH POC ABG pCO2 POC ABG pO2 ABG pO2 ABG HCO3 ABG O2 Saturation ABG Base Excess ABG Hemoglobin ABG Oxyhemoglobin ABG Potassium ABG Glucose Oxyhemoglobin Carboxyhemoglobin Sodium Potassium Chloride 97.0 L Carbon Dioxide 38 H BUN Creatinine < 0.2 L Glucose 138 H POC Glucose 130 H Calcium Ferritin Total Bilirubin Alkaline Phosphatase Lactate Dehydrogenase Total Creatine Kinase CK-MB (CK-2) Rel Index Troponin T C-Reactive Protein Total Protein Albumin Prealbumin LDL Cholesterol Direct HDL Cholesterol Arterial Blood Glucose Arterial Blood Ionized Calcium Urine WBC (Auto) 04/20/20 04/21/20 04/21/20 23:31 05:55 05:55 WBC RBC Hgb 10.0 L Hct 31.1 L MCV 82 L MCH 26 L RDW 17.0 H Plt Count 535 H Lymph % (Auto) Drew % (Auto) 9.2 H Lymph # (Auto) 1.1 L Drew # (Auto) Seg Neutrophils % 75.4 H Seg Neuts % (Manual) Lymphocytes % (Manual) Monocytes % (Manual) Basophils % (Manual) Seg Neutrophils # Seg Neutrophils # Man Lymphocytes # (Manual) Monocytes # (Manual) Eosinophils # (Manual) Basophils # (Manual) PT INR D-Dimer ABG pH POC ABG pCO2 POC ABG pO2 ABG pO2 ABG HCO3 ABG O2 Saturation ABG Base Excess ABG Hemoglobin ABG Oxyhemoglobin ABG Potassium ABG Glucose Oxyhemoglobin Carboxyhemoglobin Sodium Potassium Chloride 95.0 L Carbon Dioxide 34 H BUN Creatinine < 0.2 L Glucose 125 H POC Glucose 116 H Calcium Ferritin Total Bilirubin Alkaline Phosphatase Lactate Dehydrogenase Total Creatine Kinase CK-MB (CK-2) Rel Index Troponin T C-Reactive Protein Total Protein Albumin Prealbumin LDL Cholesterol Direct HDL Cholesterol Arterial Blood Glucose Arterial Blood Ionized Calcium Urine WBC (Auto) 04/22/20 04/22/20 04/22/20 00:01 07:45 07:45 WBC RBC Hgb 10.0 L Hct 30.7 L MCV 81 L MCH 27 L RDW 17.1 H Plt Count 490 H Lymph % (Auto) Drew % (Auto) Lymph # (Auto) Drew # (Auto) Seg Neutrophils % Seg Neuts % (Manual) 75.0 H Lymphocytes % (Manual) 11.0 L Monocytes % (Manual) 9.0 H Basophils % (Manual) Seg Neutrophils # Seg Neutrophils # Man Lymphocytes # (Manual) 0.8 L Monocytes # (Manual) Eosinophils # (Manual) Basophils # (Manual) PT INR D-Dimer ABG pH POC ABG pCO2 POC ABG pO2 ABG pO2 ABG HCO3 ABG O2 Saturation ABG Base Excess ABG Hemoglobin ABG Oxyhemoglobin ABG Potassium ABG Glucose Oxyhemoglobin Carboxyhemoglobin Sodium Potassium Chloride 96.3 L Carbon Dioxide 40 H BUN Creatinine < 0.2 L Glucose 109 H POC Glucose 110 H Calcium Ferritin Total Bilirubin Alkaline Phosphatase Lactate Dehydrogenase Total Creatine Kinase CK-MB (CK-2) Rel Index Troponin T C-Reactive Protein Total Protein Albumin Prealbumin LDL Cholesterol Direct HDL Cholesterol Arterial Blood Glucose Arterial Blood Ionized Calcium Urine WBC (Auto) 04/23/20 04/23/20 04/23/20 04:28 04:28 04:28 WBC RBC 3.64 L Hgb 9.7 L Hct 29.4 L MCV 81 L MCH 27 L RDW 17.2 H Plt Count 527 H Lymph % (Auto) Drew % (Auto) 8.9 H Lymph # (Auto) Drew # (Auto) Seg Neutrophils % Seg Neuts % (Manual) Lymphocytes % (Manual) Monocytes % (Manual) Basophils % (Manual) Seg Neutrophils # Seg Neutrophils # Man Lymphocytes # (Manual) Monocytes # (Manual) Eosinophils # (Manual) Basophils # (Manual) PT INR D-Dimer ABG pH POC ABG pCO2 POC ABG pO2 ABG pO2 ABG HCO3 ABG O2 Saturation ABG Base Excess ABG Hemoglobin ABG Oxyhemoglobin ABG Potassium ABG Glucose Oxyhemoglobin Carboxyhemoglobin Sodium Potassium Chloride 96.4 L Carbon Dioxide 32 H D BUN Creatinine < 0.2 L Glucose 134 H POC Glucose Calcium Ferritin Total Bilirubin Alkaline Phosphatase Lactate Dehydrogenase Total Creatine Kinase CK-MB (CK-2) Rel Index Troponin T 0.151 H* C-Reactive Protein Total Protein Albumin Prealbumin LDL Cholesterol Direct HDL Cholesterol 29 L Arterial Blood Glucose Arterial Blood Ionized Calcium Urine WBC (Auto) 04/23/20 04/23/20 04/24/20 06:03 23:41 05:28 WBC RBC 3.56 L Hgb 9.5 L Hct 28.9 L MCV 81 L MCH 27 L RDW 17.4 H Plt Count 462 H Lymph % (Auto) Drew % (Auto) Lymph # (Auto) Drew # (Auto) Seg Neutrophils % Seg Neuts % (Manual) 80.0 H Lymphocytes % (Manual) Monocytes % (Manual) Basophils % (Manual) Seg Neutrophils # Seg Neutrophils # Man Lymphocytes # (Manual) Monocytes # (Manual) Eosinophils # (Manual) Basophils # (Manual) PT INR D-Dimer ABG pH POC ABG pCO2 POC ABG pO2 ABG pO2 ABG HCO3 ABG O2 Saturation ABG Base Excess ABG Hemoglobin ABG Oxyhemoglobin ABG Potassium ABG Glucose Oxyhemoglobin Carboxyhemoglobin Sodium Potassium Chloride Carbon Dioxide BUN Creatinine Glucose POC Glucose 132 H 117 H Calcium Ferritin Total Bilirubin Alkaline Phosphatase Lactate Dehydrogenase Total Creatine Kinase CK-MB (CK-2) Rel Index Troponin T C-Reactive Protein Total Protein Albumin Prealbumin LDL Cholesterol Direct HDL Cholesterol Arterial Blood Glucose Arterial Blood Ionized Calcium Urine WBC (Auto) 04/24/20 04/24/20 04/24/20 05:28 05:28 05:33 WBC RBC Hgb Hct MCV MCH RDW Plt Count Lymph % (Auto) Drew % (Auto) Lymph # (Auto) Drew # (Auto) Seg Neutrophils % Seg Neuts % (Manual) Lymphocytes % (Manual) Monocytes % (Manual) Basophils % (Manual) Seg Neutrophils # Seg Neutrophils # Man Lymphocytes # (Manual) Monocytes # (Manual) Eosinophils # (Manual) Basophils # (Manual) PT INR D-Dimer ABG pH POC ABG pCO2 POC ABG pO2 ABG pO2 ABG HCO3 ABG O2 Saturation ABG Base Excess ABG Hemoglobin ABG Oxyhemoglobin ABG Potassium ABG Glucose Oxyhemoglobin Carboxyhemoglobin Sodium Potassium Chloride 96.1 L Carbon Dioxide 40 H D BUN Creatinine < 0.2 L Glucose 115 H POC Glucose 109 H Calcium Ferritin Total Bilirubin Alkaline Phosphatase Lactate Dehydrogenase Total Creatine Kinase CK-MB (CK-2) Rel Index Troponin T 0.181 H* C-Reactive Protein Total Protein Albumin Prealbumin LDL Cholesterol Direct HDL Cholesterol Arterial Blood Glucose Arterial Blood Ionized Calcium Urine WBC (Auto) 04/24/20 04/24/20 04/25/20 11:17 18:23 00:12 WBC RBC Hgb Hct MCV MCH RDW Plt Count Lymph % (Auto) Drew % (Auto) Lymph # (Auto) Drew # (Auto) Seg Neutrophils % Seg Neuts % (Manual) Lymphocytes % (Manual) Monocytes % (Manual) Basophils % (Manual) Seg Neutrophils # Seg Neutrophils # Man Lymphocytes # (Manual) Monocytes # (Manual) Eosinophils # (Manual) Basophils # (Manual) PT INR D-Dimer ABG pH POC ABG pCO2 POC ABG pO2 ABG pO2 ABG HCO3 ABG O2 Saturation ABG Base Excess ABG Hemoglobin ABG Oxyhemoglobin ABG Potassium ABG Glucose Oxyhemoglobin Carboxyhemoglobin Sodium Potassium Chloride Carbon Dioxide BUN Creatinine Glucose POC Glucose 117 H 109 H 113 H Calcium Ferritin Total Bilirubin Alkaline Phosphatase Lactate Dehydrogenase Total Creatine Kinase CK-MB (CK-2) Rel Index Troponin T C-Reactive Protein Total Protein Albumin Prealbumin LDL Cholesterol Direct HDL Cholesterol Arterial Blood Glucose Arterial Blood Ionized Calcium Urine WBC (Auto) 04/25/20 04/25/20 04/25/20 06:34 06:34 11:28 WBC 11.7 H RBC Hgb 10.0 L Hct 31.7 L MCV 82 L MCH 26 L RDW 17.5 H Plt Count 564 H Lymph % (Auto) Drew % (Auto) Lymph # (Auto) Drew # (Auto) Seg Neutrophils % Seg Neuts % (Manual) 78.0 H Lymphocytes % (Manual) 10.0 L Monocytes % (Manual) 9.0 H Basophils % (Manual) Seg Neutrophils # Seg Neutrophils # Man 9.1 H Lymphocytes # (Manual) Monocytes # (Manual) 1.1 H Eosinophils # (Manual) Basophils # (Manual) PT INR D-Dimer ABG pH POC ABG pCO2 POC ABG pO2 ABG pO2 ABG HCO3 ABG O2 Saturation ABG Base Excess ABG Hemoglobin ABG Oxyhemoglobin ABG Potassium ABG Glucose Oxyhemoglobin Carboxyhemoglobin Sodium Potassium Chloride Carbon Dioxide 39 H BUN Creatinine < 0.2 L Glucose 103 H POC Glucose 112 H Calcium Ferritin Total Bilirubin Alkaline Phosphatase Lactate Dehydrogenase Total Creatine Kinase CK-MB (CK-2) Rel Index Troponin T C-Reactive Protein Total Protein Albumin Prealbumin LDL Cholesterol Direct HDL Cholesterol Arterial Blood Glucose Arterial Blood Ionized Calcium Urine WBC (Auto) 04/27/20 04/27/20 04/27/20 11:48 17:08 23:31 WBC RBC Hgb Hct MCV MCH RDW Plt Count Lymph % (Auto) Drew % (Auto) Lymph # (Auto) Drew # (Auto) Seg Neutrophils % Seg Neuts % (Manual) Lymphocytes % (Manual) Monocytes % (Manual) Basophils % (Manual) Seg Neutrophils # Seg Neutrophils # Man Lymphocytes # (Manual) Monocytes # (Manual) Eosinophils # (Manual) Basophils # (Manual) PT INR D-Dimer ABG pH POC ABG pCO2 POC ABG pO2 ABG pO2 ABG HCO3 ABG O2 Saturation ABG Base Excess ABG Hemoglobin ABG Oxyhemoglobin ABG Potassium ABG Glucose Oxyhemoglobin Carboxyhemoglobin Sodium Potassium Chloride Carbon Dioxide BUN Creatinine Glucose POC Glucose 124 H 118 H 122 H Calcium Ferritin Total Bilirubin Alkaline Phosphatase Lactate Dehydrogenase Total Creatine Kinase CK-MB (CK-2) Rel Index Troponin T C-Reactive Protein Total Protein Albumin Prealbumin LDL Cholesterol Direct HDL Cholesterol Arterial Blood Glucose Arterial Blood Ionized Calcium Urine WBC (Auto) 04/28/20 04/29/20 04/29/20 05:42 00:14 05:30 WBC RBC Hgb Hct MCV MCH RDW Plt Count Lymph % (Auto) Drew % (Auto) Lymph # (Auto) Drew # (Auto) Seg Neutrophils % Seg Neuts % (Manual) Lymphocytes % (Manual) Monocytes % (Manual) Basophils % (Manual) Seg Neutrophils # Seg Neutrophils # Man Lymphocytes # (Manual) Monocytes # (Manual) Eosinophils # (Manual) Basophils # (Manual) PT INR D-Dimer ABG pH POC ABG pCO2 POC ABG pO2 ABG pO2 ABG HCO3 ABG O2 Saturation ABG Base Excess ABG Hemoglobin ABG Oxyhemoglobin ABG Potassium ABG Glucose Oxyhemoglobin Carboxyhemoglobin Sodium Potassium Chloride Carbon Dioxide BUN Creatinine Glucose POC Glucose 122 H 115 H 123 H Calcium Ferritin Total Bilirubin Alkaline Phosphatase Lactate Dehydrogenase Total Creatine Kinase CK-MB (CK-2) Rel Index Troponin T C-Reactive Protein Total Protein Albumin Prealbumin LDL Cholesterol Direct HDL Cholesterol Arterial Blood Glucose Arterial Blood Ionized Calcium Urine WBC (Auto) 04/30/20 05/01/20 05/01/20 00:29 05:39 12:30 WBC RBC Hgb Hct MCV MCH RDW Plt Count Lymph % (Auto) Drew % (Auto) Lymph # (Auto) Drew # (Auto) Seg Neutrophils % Seg Neuts % (Manual) Lymphocytes % (Manual) Monocytes % (Manual) Basophils % (Manual) Seg Neutrophils # Seg Neutrophils # Man Lymphocytes # (Manual) Monocytes # (Manual) Eosinophils # (Manual) Basophils # (Manual) PT INR D-Dimer ABG pH POC ABG pCO2 POC ABG pO2 ABG pO2 ABG HCO3 ABG O2 Saturation ABG Base Excess ABG Hemoglobin ABG Oxyhemoglobin ABG Potassium ABG Glucose Oxyhemoglobin Carboxyhemoglobin Sodium Potassium Chloride Carbon Dioxide BUN Creatinine Glucose POC Glucose 106 H 109 H 108 H Calcium Ferritin Total Bilirubin Alkaline Phosphatase Lactate Dehydrogenase Total Creatine Kinase CK-MB (CK-2) Rel Index Troponin T C-Reactive Protein Total Protein Albumin Prealbumin LDL Cholesterol Direct HDL Cholesterol Arterial Blood Glucose Arterial Blood Ionized Calcium Urine WBC (Auto) 05/01/20 05/03/20 05/03/20 23:35 05:09 11:36 WBC RBC Hgb Hct MCV MCH RDW Plt Count Lymph % (Auto) Drew % (Auto) Lymph # (Auto) Drew # (Auto) Seg Neutrophils % Seg Neuts % (Manual) Lymphocytes % (Manual) Monocytes % (Manual) Basophils % (Manual) Seg Neutrophils # Seg Neutrophils # Man Lymphocytes # (Manual) Monocytes # (Manual) Eosinophils # (Manual) Basophils # (Manual) PT INR D-Dimer ABG pH POC ABG pCO2 POC ABG pO2 ABG pO2 ABG HCO3 ABG O2 Saturation ABG Base Excess ABG Hemoglobin ABG Oxyhemoglobin ABG Potassium ABG Glucose Oxyhemoglobin Carboxyhemoglobin Sodium Potassium Chloride Carbon Dioxide BUN Creatinine Glucose POC Glucose 116 H 117 H 116 H Calcium Ferritin Total Bilirubin Alkaline Phosphatase Lactate Dehydrogenase Total Creatine Kinase CK-MB (CK-2) Rel Index Troponin T C-Reactive Protein Total Protein Albumin Prealbumin LDL Cholesterol Direct HDL Cholesterol Arterial Blood Glucose Arterial Blood Ionized Calcium Urine WBC (Auto) 05/03/20 05/03/20 05/03/20 14:06 14:06 23:39 WBC 12.5 H RBC Hgb 10.0 L Hct 31.2 L MCV 80 L MCH 26 L RDW 17.6 H Plt Count 488 H Lymph % (Auto) Drew % (Auto) Lymph # (Auto) Drew # (Auto) Seg Neutrophils % Seg Neuts % (Manual) Lymphocytes % (Manual) Monocytes % (Manual) Basophils % (Manual) Seg Neutrophils # Seg Neutrophils # Man Lymphocytes # (Manual) Monocytes # (Manual) Eosinophils # (Manual) Basophils # (Manual) PT INR D-Dimer ABG pH POC ABG pCO2 POC ABG pO2 ABG pO2 ABG HCO3 ABG O2 Saturation ABG Base Excess ABG Hemoglobin ABG Oxyhemoglobin ABG Potassium ABG Glucose Oxyhemoglobin Carboxyhemoglobin Sodium Potassium Chloride 95.4 L Carbon Dioxide 40 H BUN Creatinine < 0.2 L Glucose 121 H POC Glucose 107 H Calcium Ferritin Total Bilirubin Alkaline Phosphatase Lactate Dehydrogenase Total Creatine Kinase CK-MB (CK-2) Rel Index Troponin T C-Reactive Protein Total Protein Albumin Prealbumin LDL Cholesterol Direct HDL Cholesterol Arterial Blood Glucose Arterial Blood Ionized Calcium Urine WBC (Auto) 05/04/20 05/04/20 05/04/20 11:31 16:57 23:18 WBC RBC Hgb Hct MCV MCH RDW Plt Count Lymph % (Auto) Drew % (Auto) Lymph # (Auto) Drew # (Auto) Seg Neutrophils % Seg Neuts % (Manual) Lymphocytes % (Manual) Monocytes % (Manual) Basophils % (Manual) Seg Neutrophils # Seg Neutrophils # Man Lymphocytes # (Manual) Monocytes # (Manual) Eosinophils # (Manual) Basophils # (Manual) PT INR D-Dimer ABG pH POC ABG pCO2 POC ABG pO2 ABG pO2 ABG HCO3 ABG O2 Saturation ABG Base Excess ABG Hemoglobin ABG Oxyhemoglobin ABG Potassium ABG Glucose Oxyhemoglobin Carboxyhemoglobin Sodium Potassium Chloride Carbon Dioxide BUN Creatinine Glucose POC Glucose 113 H 126 H 126 H Calcium Ferritin Total Bilirubin Alkaline Phosphatase Lactate Dehydrogenase Total Creatine Kinase CK-MB (CK-2) Rel Index Troponin T C-Reactive Protein Total Protein Albumin Prealbumin LDL Cholesterol Direct HDL Cholesterol Arterial Blood Glucose Arterial Blood Ionized Calcium Urine WBC (Auto) 05/05/20 05/05/20 05/05/20 05:32 11:11 23:57 WBC RBC Hgb Hct MCV MCH RDW Plt Count Lymph % (Auto) Drew % (Auto) Lymph # (Auto) Drew # (Auto) Seg Neutrophils % Seg Neuts % (Manual) Lymphocytes % (Manual) Monocytes % (Manual) Basophils % (Manual) Seg Neutrophils # Seg Neutrophils # Man Lymphocytes # (Manual) Monocytes # (Manual) Eosinophils # (Manual) Basophils # (Manual) PT INR D-Dimer ABG pH POC ABG pCO2 POC ABG pO2 ABG pO2 ABG HCO3 ABG O2 Saturation ABG Base Excess ABG Hemoglobin ABG Oxyhemoglobin ABG Potassium ABG Glucose Oxyhemoglobin Carboxyhemoglobin Sodium Potassium Chloride Carbon Dioxide BUN Creatinine Glucose POC Glucose 109 H 124 H 119 H Calcium Ferritin Total Bilirubin Alkaline Phosphatase Lactate Dehydrogenase Total Creatine Kinase CK-MB (CK-2) Rel Index Troponin T C-Reactive Protein Total Protein Albumin Prealbumin LDL Cholesterol Direct HDL Cholesterol Arterial Blood Glucose Arterial Blood Ionized Calcium Urine WBC (Auto) 05/06/20 05/06/20 05/07/20 05:34 23:08 04:43 WBC RBC Hgb 10.1 L Hct 31.9 L MCV 81 L MCH 25 L RDW 17.6 H Plt Count 506 H Lymph % (Auto) Drew % (Auto) 8.6 H Lymph # (Auto) Drew # (Auto) 0.9 H Seg Neutrophils % Seg Neuts % (Manual) Lymphocytes % (Manual) Monocytes % (Manual) Basophils % (Manual) Seg Neutrophils # Seg Neutrophils # Man Lymphocytes # (Manual) Monocytes # (Manual) Eosinophils # (Manual) Basophils # (Manual) PT INR D-Dimer ABG pH POC ABG pCO2 POC ABG pO2 ABG pO2 ABG HCO3 ABG O2 Saturation ABG Base Excess ABG Hemoglobin ABG Oxyhemoglobin ABG Potassium ABG Glucose Oxyhemoglobin Carboxyhemoglobin Sodium Potassium Chloride Carbon Dioxide BUN Creatinine Glucose POC Glucose 121 H 107 H Calcium Ferritin Total Bilirubin Alkaline Phosphatase Lactate Dehydrogenase Total Creatine Kinase CK-MB (CK-2) Rel Index Troponin T C-Reactive Protein Total Protein Albumin Prealbumin LDL Cholesterol Direct HDL Cholesterol Arterial Blood Glucose Arterial Blood Ionized Calcium Urine WBC (Auto) 05/07/20 05/07/20 05/07/20 06:18 17:13 23:29 WBC RBC Hgb Hct MCV MCH RDW Plt Count Lymph % (Auto) Drew % (Auto) Lymph # (Auto) Drew # (Auto) Seg Neutrophils % Seg Neuts % (Manual) Lymphocytes % (Manual) Monocytes % (Manual) Basophils % (Manual) Seg Neutrophils # Seg Neutrophils # Man Lymphocytes # (Manual) Monocytes # (Manual) Eosinophils # (Manual) Basophils # (Manual) PT INR D-Dimer ABG pH POC ABG pCO2 POC ABG pO2 ABG pO2 ABG HCO3 ABG O2 Saturation ABG Base Excess ABG Hemoglobin ABG Oxyhemoglobin ABG Potassium ABG Glucose Oxyhemoglobin Carboxyhemoglobin Sodium Potassium Chloride Carbon Dioxide BUN Creatinine Glucose POC Glucose 121 H 122 H 114 H Calcium Ferritin Total Bilirubin Alkaline Phosphatase Lactate Dehydrogenase Total Creatine Kinase CK-MB (CK-2) Rel Index Troponin T C-Reactive Protein Total Protein Albumin Prealbumin LDL Cholesterol Direct HDL Cholesterol Arterial Blood Glucose Arterial Blood Ionized Calcium Urine WBC (Auto) 05/08/20 05/08/20 05/08/20 05:20 11:57 23:42 WBC RBC Hgb Hct MCV MCH RDW Plt Count Lymph % (Auto) Drew % (Auto) Lymph # (Auto) Drew # (Auto) Seg Neutrophils % Seg Neuts % (Manual) Lymphocytes % (Manual) Monocytes % (Manual) Basophils % (Manual) Seg Neutrophils # Seg Neutrophils # Man Lymphocytes # (Manual) Monocytes # (Manual) Eosinophils # (Manual) Basophils # (Manual) PT INR D-Dimer ABG pH POC ABG pCO2 POC ABG pO2 ABG pO2 ABG HCO3 ABG O2 Saturation ABG Base Excess ABG Hemoglobin ABG Oxyhemoglobin ABG Potassium ABG Glucose Oxyhemoglobin Carboxyhemoglobin Sodium Potassium Chloride Carbon Dioxide BUN Creatinine Glucose POC Glucose 121 H 113 H 135 H Calcium Ferritin Total Bilirubin Alkaline Phosphatase Lactate Dehydrogenase Total Creatine Kinase CK-MB (CK-2) Rel Index Troponin T C-Reactive Protein Total Protein Albumin Prealbumin LDL Cholesterol Direct HDL Cholesterol Arterial Blood Glucose Arterial Blood Ionized Calcium Urine WBC (Auto) 05/09/20 05/09/20 05/09/20 05:31 11:11 16:06 WBC RBC Hgb Hct MCV MCH RDW Plt Count Lymph % (Auto) Drew % (Auto) Lymph # (Auto) Drew # (Auto) Seg Neutrophils % Seg Neuts % (Manual) Lymphocytes % (Manual) Monocytes % (Manual) Basophils % (Manual) Seg Neutrophils # Seg Neutrophils # Man Lymphocytes # (Manual) Monocytes # (Manual) Eosinophils # (Manual) Basophils # (Manual) PT INR D-Dimer ABG pH POC ABG pCO2 POC ABG pO2 ABG pO2 ABG HCO3 ABG O2 Saturation ABG Base Excess ABG Hemoglobin ABG Oxyhemoglobin ABG Potassium ABG Glucose Oxyhemoglobin Carboxyhemoglobin Sodium 136 L Potassium Chloride 97.0 L Carbon Dioxide 34 H BUN Creatinine < 0.2 L Glucose 107 H POC Glucose 66 L 127 H Calcium Ferritin Total Bilirubin Alkaline Phosphatase Lactate Dehydrogenase Total Creatine Kinase CK-MB (CK-2) Rel Index Troponin T C-Reactive Protein Total Protein Albumin Prealbumin LDL Cholesterol Direct HDL Cholesterol Arterial Blood Glucose Arterial Blood Ionized Calcium Urine WBC (Auto) 05/09/20 05/10/20 05/10/20 23:19 04:59 11:28 WBC RBC Hgb Hct MCV MCH RDW Plt Count Lymph % (Auto) Drew % (Auto) Lymph # (Auto) Drew # (Auto) Seg Neutrophils % Seg Neuts % (Manual) Lymphocytes % (Manual) Monocytes % (Manual) Basophils % (Manual) Seg Neutrophils # Seg Neutrophils # Man Lymphocytes # (Manual) Monocytes # (Manual) Eosinophils # (Manual) Basophils # (Manual) PT INR D-Dimer ABG pH POC ABG pCO2 POC ABG pO2 ABG pO2 ABG HCO3 ABG O2 Saturation ABG Base Excess ABG Hemoglobin ABG Oxyhemoglobin ABG Potassium ABG Glucose Oxyhemoglobin Carboxyhemoglobin Sodium Potassium Chloride Carbon Dioxide BUN Creatinine Glucose POC Glucose 108 H 126 H 124 H Calcium Ferritin Total Bilirubin Alkaline Phosphatase Lactate Dehydrogenase Total Creatine Kinase CK-MB (CK-2) Rel Index Troponin T C-Reactive Protein Total Protein Albumin Prealbumin LDL Cholesterol Direct HDL Cholesterol Arterial Blood Glucose Arterial Blood Ionized Calcium Urine WBC (Auto) 05/10/20 05/11/20 05/11/20 23:56 06:13 11:44 WBC RBC Hgb Hct MCV MCH RDW Plt Count Lymph % (Auto) Drew % (Auto) Lymph # (Auto) Drew # (Auto) Seg Neutrophils % Seg Neuts % (Manual) Lymphocytes % (Manual) Monocytes % (Manual) Basophils % (Manual) Seg Neutrophils # Seg Neutrophils # Man Lymphocytes # (Manual) Monocytes # (Manual) Eosinophils # (Manual) Basophils # (Manual) PT INR D-Dimer ABG pH POC ABG pCO2 POC ABG pO2 ABG pO2 ABG HCO3 ABG O2 Saturation ABG Base Excess ABG Hemoglobin ABG Oxyhemoglobin ABG Potassium ABG Glucose Oxyhemoglobin Carboxyhemoglobin Sodium Potassium Chloride Carbon Dioxide BUN Creatinine Glucose POC Glucose 113 H 124 H 125 H Calcium Ferritin Total Bilirubin Alkaline Phosphatase Lactate Dehydrogenase Total Creatine Kinase CK-MB (CK-2) Rel Index Troponin T C-Reactive Protein Total Protein Albumin Prealbumin LDL Cholesterol Direct HDL Cholesterol Arterial Blood Glucose Arterial Blood Ionized Calcium Urine WBC (Auto) 05/12/20 05/12/20 05/12/20 06:04 12:17 17:23 WBC RBC Hgb Hct MCV MCH RDW Plt Count Lymph % (Auto) Drew % (Auto) Lymph # (Auto) Drew # (Auto) Seg Neutrophils % Seg Neuts % (Manual) Lymphocytes % (Manual) Monocytes % (Manual) Basophils % (Manual) Seg Neutrophils # Seg Neutrophils # Man Lymphocytes # (Manual) Monocytes # (Manual) Eosinophils # (Manual) Basophils # (Manual) PT INR D-Dimer ABG pH POC ABG pCO2 POC ABG pO2 ABG pO2 ABG HCO3 ABG O2 Saturation ABG Base Excess ABG Hemoglobin ABG Oxyhemoglobin ABG Potassium ABG Glucose Oxyhemoglobin Carboxyhemoglobin Sodium Potassium Chloride Carbon Dioxide BUN Creatinine Glucose POC Glucose 135 H 136 H 133 H Calcium Ferritin Total Bilirubin Alkaline Phosphatase Lactate Dehydrogenase Total Creatine Kinase CK-MB (CK-2) Rel Index Troponin T C-Reactive Protein Total Protein Albumin Prealbumin LDL Cholesterol Direct HDL Cholesterol Arterial Blood Glucose Arterial Blood Ionized Calcium Urine WBC (Auto) 05/12/20 05/13/20 05/13/20 23:34 05:36 11:25 WBC RBC Hgb Hct MCV MCH RDW Plt Count Lymph % (Auto) Drew % (Auto) Lymph # (Auto) Drew # (Auto) Seg Neutrophils % Seg Neuts % (Manual) Lymphocytes % (Manual) Monocytes % (Manual) Basophils % (Manual) Seg Neutrophils # Seg Neutrophils # Man Lymphocytes # (Manual) Monocytes # (Manual) Eosinophils # (Manual) Basophils # (Manual) PT INR D-Dimer ABG pH POC ABG pCO2 POC ABG pO2 ABG pO2 ABG HCO3 ABG O2 Saturation ABG Base Excess ABG Hemoglobin ABG Oxyhemoglobin ABG Potassium ABG Glucose Oxyhemoglobin Carboxyhemoglobin Sodium Potassium Chloride Carbon Dioxide BUN Creatinine Glucose POC Glucose 141 H 131 H 148 H Calcium Ferritin Total Bilirubin Alkaline Phosphatase Lactate Dehydrogenase Total Creatine Kinase CK-MB (CK-2) Rel Index Troponin T C-Reactive Protein Total Protein Albumin Prealbumin LDL Cholesterol Direct HDL Cholesterol Arterial Blood Glucose Arterial Blood Ionized Calcium Urine WBC (Auto) 05/13/20 05/14/20 05/14/20 16:40 00:11 05:03 WBC RBC Hgb Hct MCV MCH RDW Plt Count Lymph % (Auto) Drew % (Auto) Lymph # (Auto) Drew # (Auto) Seg Neutrophils % Seg Neuts % (Manual) Lymphocytes % (Manual) Monocytes % (Manual) Basophils % (Manual) Seg Neutrophils # Seg Neutrophils # Man Lymphocytes # (Manual) Monocytes # (Manual) Eosinophils # (Manual) Basophils # (Manual) PT INR D-Dimer ABG pH POC ABG pCO2 POC ABG pO2 ABG pO2 ABG HCO3 ABG O2 Saturation ABG Base Excess ABG Hemoglobin ABG Oxyhemoglobin ABG Potassium ABG Glucose Oxyhemoglobin Carboxyhemoglobin Sodium Potassium Chloride Carbon Dioxide BUN Creatinine Glucose POC Glucose 118 H 128 H 129 H Calcium Ferritin Total Bilirubin Alkaline Phosphatase Lactate Dehydrogenase Total Creatine Kinase CK-MB (CK-2) Rel Index Troponin T C-Reactive Protein Total Protein Albumin Prealbumin LDL Cholesterol Direct HDL Cholesterol Arterial Blood Glucose Arterial Blood Ionized Calcium Urine WBC (Auto) 05/14/20 05/15/20 05/16/20 11:38 23:46 05:20 WBC RBC Hgb Hct MCV MCH RDW Plt Count Lymph % (Auto) Drew % (Auto) Lymph # (Auto) Drew # (Auto) Seg Neutrophils % Seg Neuts % (Manual) Lymphocytes % (Manual) Monocytes % (Manual) Basophils % (Manual) Seg Neutrophils # Seg Neutrophils # Man Lymphocytes # (Manual) Monocytes # (Manual) Eosinophils # (Manual) Basophils # (Manual) PT INR D-Dimer ABG pH POC ABG pCO2 POC ABG pO2 ABG pO2 ABG HCO3 ABG O2 Saturation ABG Base Excess ABG Hemoglobin ABG Oxyhemoglobin ABG Potassium ABG Glucose Oxyhemoglobin Carboxyhemoglobin Sodium Potassium Chloride Carbon Dioxide BUN Creatinine Glucose POC Glucose 134 H 107 H 122 H Calcium Ferritin Total Bilirubin Alkaline Phosphatase Lactate Dehydrogenase Total Creatine Kinase CK-MB (CK-2) Rel Index Troponin T C-Reactive Protein Total Protein Albumin Prealbumin LDL Cholesterol Direct HDL Cholesterol Arterial Blood Glucose Arterial Blood Ionized Calcium Urine WBC (Auto) Allied health notes reviewed: nursing
[2020-05-16] MEDS: SODIUM HYPOCHLORITE, DAKIN'S 1/2 STRENGTH (0.25%) 473 ML TOPICAL SOLN TP SCH (11:02)
[2020-05-16] MEDS: LIDOCAINE 5% 1 EACH PATCH TD SCH (17:11)
[2020-05-16] MEDS: ALPRAZolam 0.5 MG TAB PO PRN ×2 (17:12→23:40)
--- NOTE | 2020-05-16 18:19 | Progress Note ---
Assessment and Plan --Acute hypoxic hypercapnic respiratory failure; Intubated on mechanical ventilation. Etiology secondary to sepsis, ALS, multifocal pneumonia (Covid negative). S/p trach placement 03/07/20 --Status post cardiac arrest on 02/25, cardiac hernandez now stable --Dysphagia, status post PEG placement for tube feeding --ALS; Chronic Continue to provide supportive care --Elevated D-dimers; CTA chest, lower extremity venous Doppler both are negative Lovenox for DVT prophylaxis --Bilateral pneumonia; probably community-acquired Completed treatment ID recommendations appreciated --Sepsis secondary to pneumonia s/p empiric antibiotic --Elevated troponin; Serial cardiac enzymes, serial EKGs Echocardiogram, cardiology consult if needed --Hypernatremia Trend sodium Free water via feeding tube --Abdominal distention due to bladder outlet obstruction, resolved CT abdomen showed bladder outlet obstruction, urology consulted s/p drake placement by urology on 03/09 --Hypotension possibly from septic shock and bladder outlet obstruction improved following placing drake --Hypernatremia due to hypovolumia, resolved free water with TF --Constipation; Patient already received Dulcolax suppository and Colace Received milk of magnesia, with relief --DVT prophylaxis; Lovenox Brief history: 59-year-old male patient with significant past medical history of ALS, presented to ED with worsening shortness of breath since the morning [employer]. Patient was on a trilogy machine for breathing 18/11. EMS arrived, patient had O2 sats in the 80s. EMS attempted to place patient on their CPAP machine, however patient did not tolerate. Patient was admitted to the ICU with diagnosis of acute hypoxic respiratory failure and placed on BiPAP. Patient initially tolerated but later deteriorated with respiratory status. CTA chest showed no PE but significant for bilateral pneumonia. Doppler ultrasound also negative for DVT. COVID-19 test ordered and negative. Due to persistent hypoxia and asystolic/V. fib cardiac arrest, patient was intubated on 02/26/2020 at 1500. Patient now on mechanical ventilation in the ICU s/p trach placement and now unable to wean off from the mechanical ventilation. Patient now status post PEG placement for tube feeding. Patient most likely need long-term placement -LTAC versus SNF Daily course: 02/25/2020. CTA of the chest reveals no PE but does illustrate the bilateral pneumonia. Doppler ultrasound also negative for DVT. Blood cultures are pe nding. Await COVID-19 testing. Patient currently requiring BiPAP IPAP 24/EPAP 6 with FiO2 of 25%. Continue O2 and BiPAP as clinically indicated. ID and pulmonary consulted. 02/26/2020. Blood cultures are negative x48 hours and Covid testing negative as well. Continue antibiotics per ID recommendations for community-acquired bilateral pneumonia. Cardiology consultation for elevated troponin. Check echocardiogram. 02/27/2020. Events of yesterday noted with asystole following V. fib arrest. Patient currently on AC mode rate 20, tidal volume 400, FiO2 50% and a PEEP of 6. Follow-up echocardiogram for elevated troponin. Cardiology suspects NSTEMI Type 2 in the setting of acute resp failure. Chest CTA and BLE Dopplers neg. we will discontinue Decadron given the Covid PCR is negative. 02/28/2020. I spoke with the sister Felisa Eli who is the power of assistant prosecuting attorney regarding advanced directives and she instructed me that she would like to continue with aggressive care at this time. I informed her of the guarded prognosis and high mortality/morbidity and she voiced understanding. Patient currently with AC mode ventilation rate 18, tidal volume 400, FiO2 40% and a PEEP of 6. Continue antibiotics for pneumonia. ID previously consulted. Also consult neurology with regards to ALS. 02/29/2020; patient is intubated and on CPAP patient is alert and oriented. Patient has ALS. Dr. Álvarez spoke with his sister and she wants aggressive care. Continue antibiotics for pneumonia. Neurology consulted for ALS. Prognosis poor 03/01/2020; patient is intubated and on CPAP, patient is alert and oriented. I spoke with his 2 sisters about the management plan. 03/02/2020; patient is intubated and on CPAP. Patient was alert and oriented. I spoke with Dr. mohr and he thinks patient may need mechanical ventilation, likely his disease progressed. Dr. Flowers did debridement this morning. 03/03/2020; patient is intubated and on CPAP, patient was on trilogy and BiPAP at home. Patient has ALS. on spontaneous breathing trial. Patient is alert and oriented but quadriplegic. Patient has severe bilateral pneumonia and is on cefepime and Vanco, ID is following. Patient has sacral decubitus ulcer and debridement was done by Dr. Flowers and there is no osteomyelitis. 03/05. Patient still on broad-spectrum antibiotics. Status post sacral decubitus ulcer debridements-no osteomyelitis. Patient is on AC 25/400/30% PEEP 5. No blood gas results today. 03/06. Plan for tracheostomy by surgery. Still remains intubated. Labs reviewed-sodium 150. Started on free water 200 every 8hr. trend sodium. 03/07: s/p trach placement today, patient placed back on mechanical ventilation with trach. Plan to resume tube feeding with NG tube. Continue to monitor vitals, monitor BMP. 03/08: Patient noted to have distended abdomen with low urinary output. Obtain bladder scan rule out urine retention, UA and urine culture, continue to follow clinically. 03/09: Patient noted to have low blood pressure with SBP as low as 70s. Ordered for 500 mils normal saline bolus. CT abdomen showed bladder outlet obstruction, urology consulted. 03/10: placed on drake by urology o/n, improved urine outpt. cont to monitor BMP. resuded TF - cont free water with TF. wean off from vent as tolerated. 03/11: Vitals stable. cont TF, wean off from vent as tolerated. start on 1/2 NS for hypernatremia - follow BMP 03/12: wean off vent as tolerated, plan for speech eval, cont Tf for now, cont iv fluid 03/13: unable to wean off from vent, unable to do speech therapy eval. will need PEG tube, cont supportive care for now, cont NG tube feeding 03/14: consulted GI for PEg placemnet, cont supportive care. remains on vent at night 03/15: Discussed with GI, plan for PEG tube placement possibly tomorrow. Continue supportive care and wean off from vent as tolerated. Hold Lovenox dose tonight. 03/16: family didnot consent for PEG placement yesterday. I spoke with the megan rodriguez today and she is now agreeable for PEG tube. I explained the necessity of the procedure with RN to the patient also and he nodded started on tube feeding, for the procedure. will cont supportive care. planned for PEG tube placement tomorrow. 03/17: s/p PEG placement today, patient tolerated well, cont supportive care 03/18: Started on tube feeding with new PEG tube, continue to wean off vent as tolerated 03/19: cont to monitor with supportive care, wean off vent as tolerated 03/20: Continue to wean off vent as tolerated -but failing weaning trial. Still requiring vent support at night. Currently on PEG tube for tube feed. 03/21. Pt with PSV trials with FiO@ 30%, PEEP 6, PS 10. Currently on PEG tube for tube feed. 03/22/2020. Continue PSV trials per pulmonary. Continue bronchodilators. Patient tolerating tube feedings. Continue Robinul for secretion control. 03/23/2020. Continue PSV trials per pulmonary. Continue bronchodilators. Continue Scopolamine and Robinul for secretion control. Trach care/airway management. Mobility protocols for pressure ulcer prophylaxis. LTAC evaluation per case management 03/24/2020. Continue PSV trials with current settings pressure support 10, PEEP 6 and FiO2 30%. Continue bronchodilators/nebulizer. Continue Scopolamine and Robinul for secretion control. Trach care/airway management. Mobility protocols for pressure ulcer prophylaxis. LTAC evaluation per case management 03/25/2020. Pulmonary to proceed with T-piece trials today. Continue bronchodilators/nebulizer. Continue Scopolamine and Robinul for secretion control. Trach care/airway management. Mobility protocols for pressure ulcer prophylaxis. 03/26/2020. Patient currently with PSV 10/6 at FiO2 of 30%. Continue weaning and T-piece trials per protocol. Continue bronchodilators/nebulizer. Continue Scopolamine and Robinul for secretion control. Trach care/airway management. Mobility protocols for pressure ulcer prophylaxis. Continue tube feeding with aspiration precautions. 03/27/2020. Patient currently with PSV 10/6 at FiO2 of 30%. Continue weaning and T-piece trials per protocol. Continue bronchodilators/nebulizer. Continue Scopolamine and Robinul for secretion control. Trach care/airway management. Mobility protocols for pressure ulcer prophylaxis. Continue tube feeding with aspiration precautions. 03/28. Had temp 100.7F. He has been off antibiotics. Will send blood culture, ua, urine culture and chest xray. Had chest pain overnight and trop was elevated as well. Cardiology to evaluate 03/29. Has back pain due to position. He mentions his chest pain is positional. Has no other complaints. Still on mechanical ventilation 03/30. No chest pain today. Labs reviewed. Discussed chest pain with cardiology and team advised no further work up at this time. Can follow up with cardiology in the office after hospitalization 03/31. Lidocaine patch for lower back pain. 04/01. Discharge planning underway. CM notes reviewed. Discussed with daughter 04/02. CM trying to arrange discharge. Continue PSV trials. Discussed with patients significant other 04/04/2020; CM is working for discharge arrangement. Continue PSV trials. 04/05/2020; patient was seen and evaluated this morning and no change from baseline. Continue with PSV trials. Follow with license clerk for discharge planning. 04/06/2020;patient was seen and evaluated this morning and no change from baseline. Continue with PSV trials. Follow with license clerk for discharge planning. 04/07/2020; patient was seen and evaluated this morning and no change from baseline. Continue with PSV trials. Follow with license clerk for discharge planning. 04/08/2020; patient is vent dependent. Discharge is per license clerk. 04/09/2020 patient is vent dependent, possible LTAC placement 04/10/2020; tracheostomy on vent, vent dependent pending LTAC placement 04/11/2020; clinically no change, tracheostomy on ventilatory support, wean as tolerated, awaiting placement 04/12/2020; remains on ventilatory support, unable to wean, patient wants to see a speech therapist for sound box However we cannot try that as long as he is on ventilatory support, once he is weaned off vent We will consult speech therapist, plan of care reviewed with the patient and his nurse 04/14/2020; clinically no change, on ventilatory support, complains of constipation, milk of magnesia Closely monitor the patient and adjust the management as needed 04/15/2020; patient has some oral thrush on the tongue, will give Magic mouthwash/nystatin swish and spit Wean off vent as tolerated 04/16 patient is alert and oriented, unable to comprehend what he is trying to tell but appears to complain of some pain, no acute events overnight, all interdisciplinary notes reviewed. Waiting for [facility]AC versus [facility] facility placement 04/17/2020. Continue supportive care with mechanical ventilation. Patient currently on AC mode rate 10, tidal volume 400 FiO2 30% with a PEEP of 6. Discharge planning per case management. 04/18/2020. Patient remains on mechanical ventilation AC mode rate 10, tidal volume 400, FiO2 30% and PEEP of 6. Continue spontaneous breathing trials as tolerated. Previously, patient was considered for discharge home with skilled staff providing care for 12 hours 7 days/week. Continue discussed with case management discharge planning. 04/19/20. Patient remains on mechanical ventilation AC mode rate 10, tidal volume 400, FiO2 30% and PEEP of 6. Continue spontaneous breathing trials as tolerated. 04/20/2020. Patient remains on mechanical ventilation AC mode rate 10, tidal volume 400, FiO2 30% and PEEP of 6. Continue spontaneous breathing trials as tolerated. 04/21/2020. Patient remains on mechanical ventilation AC mode rate 10, tidal volume 400, FiO2 30% and PEEP of 6. Continue tracheostomy care, secretion control and airway management. Continue spontaneous breathing trials as tolerated. 04/22/2020. Patient remains on mechanical ventilation AC mode rate 10, tidal volume 400, FiO2 30% and PEEP of 6. Continue tracheostomy care, secretion control and airway management. Continue spontaneous breathing trials as tolera milana. 04/23/2020. Patient on mechanical ventilation AC mode rate 18, tidal volume 450, FiO2 30% and PEEP of 6. Continue tracheostomy care, secretion control and airway management. Continue spontaneous breathing trials as tolerated. Continue Robinul and scopolamine for secretions. Continue baclofen. 04/24/2020. Patient remains on AC mode ventilation rate 10, tidal volume 400, FiO2 30% and PEEP of 6. Continue tracheostomy care, secretion control and airway management. Continue spontaneous breathing trials as tolerated. Continue Robinul and scopolamine for secretions. Continue baclofen. Continue Xanax for anxiety and Ambien for sleep. Await case management follow-up with regards to discharge planning. 04/25/2020. Patient remains on AC mode ventilation rate 10, tidal volume 400, FiO2 30% and PEEP of 6. Continue tracheostomy care, secretion control and airway management. Continue spontaneous breathing trials as tolerated. Continue Robinul and scopolamine for secretions. Continue baclofen. Continue Xanax for anxiety and Ambien for sleep. Await case management follow-up with regards to discharge planning. 04/26. Patient remains on AC mode ventilation rate 10, tidal volume 400, FiO2 30% and PEEP of 6. Continue tracheostomy care, secretion control and airway management. Continue spontaneous breathing trials as tolerated. Continue Robinul and scopolamine for secretions. Continue baclofen. Continue Xanax for anxiety and Ambien for sleep. Await case management follow-up with regards to discharge planning. 04/27. Patient remains on AC mode ventilation rate 10, tidal volume 400, FiO2 30% and PEEP of 6. Continue tracheostomy care, secretion control and airway management. Continue spontaneous breathing trials as tolerated. Continue Robinul and scopolamine for secretions. Continue baclofen. Continue Xanax for anxiety and Ambien for sleep. Await case management follow-up with regards to discharge planning. 04/28/20 no acute events overnight, remains vent dependent, cardiology and pulmonary notes reviewed 04/29 remains intubated via tracheostomy, no acute events 04/30 no acute events overnight, cardiology note reviewed, remains vent dependent, discharge planning per case management 05/01 stable. cardiology and pulmonary notes reviewed. D/C acu-checks 05/02 - todate: Clinically stable, CM working on placement. Continue supportive care. Subjective Date of service: 05/16/20 Principal diagnosis: Ac on Ch Hypercapnic & hypoxemic Resp Failure; Severe Sepsis; Jamar PNA; ALS Interval history: Patient seen and examined Remains on trach tube Discussed with RN at the bedside Vitals reviewed -BP stable Tolerating tube feeding with PEG tube Objective - Exam Narrative Exam: GENERAL: Awake. Intubated with trach tube HEAD: No signs of head trauma. EYES: Pupils are equal. Extraocular motions intact. EARS: Hearing grossly intact. MOUTH: Oropharynx is normal. NECK: No adenopathy, no JVD. CHEST: Coarse breath sounds bilaterally CARDIAC: Regular rate and rhythm. S1 and S2, without murmurs, gallops, or rubs. VASCULAR: No Edema. Peripheral pulses normal and equal in all extremities. ABDOMEN: Soft, non tender and nondistended. Bowel Sounds normal. PEG in place NEUROLOGIC EXAM: Awake, paraplegic SKIN: No obvious lesions - Constitutional Vitals: Vital Signs - 12hr 05/16/20 05/16/20 05/16/20 07:00 08:00 08:01 Temperature 98.1 F Pulse Rate 91 H 122 H 110 H Pulse Rate [ 122 H From Monitor] Respiratory 21 24 27 H Rate Blood Pressure 124/81 148/98 O2 Sat by Pulse 100 96 Oximetry O2 Sat by Pulse Oximetry [ Assessment] 05/16/20 05/16/20 05/16/20 08:02 08:04 09:00 Temperature Pulse Rate 113 H 121 H 97 H Pulse Rate [ From Monitor] Respiratory 29 H 16 Rate Blood Pressure 148/98 148/98 121/83 O2 Sat by Pulse 97 99 99 Oximetry O2 Sat by Pulse Oximetry [ Assessment] 05/16/20 05/16/20 05/16/20 09:21 10:00 11:00 Temperature Pulse Rate 118 H 99 H 96 H Pulse Rate [ From Monitor] Respiratory 19 20 Rate Blood Pressure 121/83 122/85 115/76 O2 Sat by Pulse 99 98 Oximetry O2 Sat by Pulse Oximetry [ Assessment] 05/16/20 05/16/20 05/16/20 11:47 12:00 15:30 Temperature 99.1 F Pulse Rate 104 H Pulse Rate [ From Monitor] Respiratory 21 Rate Blood Pressure 115/76 O2 Sat by Pulse 98 Oximetry O2 Sat by Pulse 100 Oximetry [ Assessment] 05/16/20 05/16/20 15:39 17:11 Temperature Pulse Rate 105 H Pulse Rate [ From Monitor] Respiratory 24 Rate Blood Pressure 118/63 O2 Sat by Pulse 100 Oximetry O2 Sat by Pulse Oximetry [ Assessment] - Labs CBC & Chem 7: 05/07/20 04:43 05/09/20 16:06 Labs: Abnormal lab results 05/15/20 05/16/20 05/16/20 Range/Units 23:46 05:20 11:57 POC Glucose 107 H 122 H 108 H (70-105) mg/dL HEART Score - HEART Score Troponin: Troponin T 0.181 ng/mL (0.00-0.029) H* 04/24/20 05:28
[2020-05-16] MEDS: ENOXAPARIN 40 MG/0.4 ML INJ SUB-Q SCH (21:02)
[2020-05-16] MEDS: traMADol 50 MG TAB PO PRN (21:03)
[2020-05-16] MEDS: SENNOSIDES 8.6 MG TAB PO SCH (21:03)
[2020-05-16] MEDS: ZOLPIDEM 5 MG TAB PO PRN (21:03)
[2020-05-16] MEDS: D5W/0.9% NACL 1,000 ML IV SCH (21:15)
[2020-05-17] MEDS: MAGIC MOUTHWASH 30ML PO SCH ×4 (02:00→22:52)
[2020-05-17] MEDS: SODIUM HYPOCHLORITE, DAKIN'S 1/2 STRENGTH (0.25%) 473 ML TOPICAL SOLN TP SCH (02:01)
[2020-05-17] MEDS: diphenhydrAMINE 25 MG/10 ML ORAL LIQUID FEEDTUBE PRN ×2 (06:05→06:06)
[2020-05-17] MEDS: MORPHINE 2 MG/1 ML INJ IV PRN ×3 (06:05→18:50)
[2020-05-17] MEDS: LANSOPRAZOLE 30 MG SOLUTAB FEEDTUBE SCH (10:09)
[2020-05-17] MEDS: ALPRAZolam 0.5 MG TAB PO PRN (10:09)
[2020-05-17] MEDS: SCOPOLAMINE TRANSDERMAL PATCH 72 HR TD SCH (10:09)
[2020-05-17] MEDS: ASPIRIN EC 81 MG TAB PO SCH (10:09)
[2020-05-17] MEDS: METOPROLOL TARTRATE 25 MG TAB PO SCH ×2 (10:10→22:50)
[2020-05-17] MEDS: BACLOFEN 10 MG TAB PO SCH ×2 (10:11→22:50)
[2020-05-17] MEDS: DOCUSATE SODIUM 100 MG/10 ML ORAL LIQD FEEDTUBE SCH ×2 (10:11→22:51)
[2020-05-17] MEDS: GLYCOPYRROLATE 1 MG TAB PO SCH ×3 (10:11→22:50)
[2020-05-17] MEDS: PREGABALIN 75 MG CAP PO SCH ×2 (10:12→22:51)
[2020-05-17] MEDS: LIDOCAINE 5% 1 EACH PATCH TD SCH (10:12)
[2020-05-17] MEDS: TAMSULOSIN 0.4 MG CAP PO SCH (10:19)
--- NOTE | 2020-05-17 14:28 | Progress Note ---
Assessment and Plan Patient Sleeping. Patient is still on Pressure support ventilation, pressure support 10, FIO2 30%, PEEP 6 and O2 saturation running 99%. Recommend Continue spontaneous breathing trials as tolerated.Respiratory therapy told me, Patient Not tolearing T tube trial ' Recommend to decrease pressure support to 5.Patient running low grade temp and has no leukocytosis. Chest xray done 05/02/20 reported Interval worsening of right lung base opacity now appears to be pleural parenchymal. This may be a worsened infectious process or development of right- sided pleural effusion and worsened right lung base atelectasis. Left lung base opacity is stable. Tracheostomy in stable position. Patient right lung base infiltrate reported intervel worsening, patient has no leukocytosis, recommend to place him antibiotic like zosyn. Repeat chest xray 05/11/20 reported Mild interval improvement in the hazy opacity at the right lung base as described. I suspect this represents an improving atelectasis over effusion. Patients respiratory status same. Not cooperating with weaning from ventilator. - Patient Problems (1) Acute on chronic respiratory failure with hypoxia and hypercapnia Current Visit: Yes Status: Acute Plan to address problem: Patient is resting on Pressure support 10, FIO2 30%, PEEP 6. Albuterol inhaler 2 puffs po qid. Continue S/C Lovenox. Continue prevacid. Recommend to decrease pressure support 5. (2) Bleeding from wound Current Visit: Yes Status: Acute Plan to address problem: Management primary care , surgery and wound care. (3) Elevated d-dimer Current Visit: Yes Status: Acute Plan to address problem: Patients venous doppler studies of legs, CTA chest reported Negative for VTE. Patient is on S/C Lovenox 40 mg qd. (4) Elevated troponin Current Visit: Yes Status: Acute Plan to address problem: Management as per primary care and cardiology (5) NSTEMI (non-ST elevated myocardial infarction) Current Visit: Yes Status: Acute Plan to address problem: Management as per cardiology. (6) Pneumonia Current Visit: Yes Status: Acute Qualifiers: Laterality: bilateral Plan to address problem: Patient afebrile . Has mild leukocytosis. Repeat Chest xray done 05/02/20 reported Interval worsening of right lung base opacity now appears to be pleural parenchymal. This may be a worsened infectious process or development of right-sided pleural effusion and worsened right lung base atelectasis. Left lung base opacity is stable. Tracheostomy in stable position. Patient right lung base infiltrate reported intervel worsening, patient has no leukocytosis, recommend to place him antibiotic like zosyn. Repeating chest xray and ABGs. Repeat chest xray 05/11/20 reported Mild interval improvement in the hazy opacity at the right lung base as described. I suspect this represents an improving atelectasis over effusion. Subjective Date of service: 05/17/20 Principal diagnosis: Ac on Ch Hypercapnic & hypoxemic Resp Failure; Severe Sepsis; Jamar PNA; ALS Interval history: Patient Sleeping. Patient is still on Pressure support ventilation, pressure support 10, FIO2 30%, PEEP 6 and O2 saturation running 99%. Recommend Continue spontaneous breathing trials as tolerated.Respiratory therapy told me, Patient Not tolearing T tube trial ' Recommend to decrease pressure support to 5.Patient running low grade temp and has no leukocytosis. Chest xray done 05/02/20 reported Interval worsening of right lung base opacity now appears to be pleural parenchymal. This may be a worsened infectious process or development of right- sided pleural effusion and worsened right lung base atelectasis. Left lung base opacity is stable. Tracheostomy in stable position. Patient right lung base infiltrate reported intervel worsening, patient has no leukocytosis, recommend to place him antibiotic like zosyn. Repeat chest xray 05/11/20 reported Mild interval improvement in the hazy opacity at the right lung base as described. I suspect this represents an improving atelectasis over effusion. Patients respiratory status same. Not cooperating with weaning from ventilator. Objective Vital Signs - 12hr 05/17/20 05/17/20 05/17/20 03:00 03:23 04:00 Temperature 98.1 F Pulse Rate 98 H 104 H 109 H Respiratory 22 25 H Rate Blood Pressure 135/91 135/91 138/99 O2 Sat by Pulse 99 98 97 Oximetry O2 Sat by Pulse 100 Oximetry [ Assessment] 05/17/20 05/17/20 05/17/20 04:20 05:00 06:00 Temperature Pulse Rate 107 H 93 H 107 H Respiratory 25 H 23 Rate Blood Pressure 137/95 135/102 O2 Sat by Pulse 99 100 Oximetry O2 Sat by Pulse Oximetry [ Assessment] 05/17/20 05/17/20 05/17/20 06:05 06:35 07:00 Temperature Pulse Rate 101 H Respiratory 22 20 22 Rate Blood Pressure 155/107 O2 Sat by Pulse 93 Oximetry O2 Sat by Pulse Oximetry [ Assessment] 05/17/20 05/17/20 05/17/20 08:00 08:35 10:10 Temperature 98.2 F Pulse Rate 103 H 110 H 107 H Respiratory 21 14 Rate Blood Pressure 153/101 153/101 127/74 O2 Sat by Pulse 95 97 Oximetry O2 Sat by Pulse Oximetry [ Assessment] 05/17/20 13:13 Temperature Pulse Rate 98 H Respiratory Rate Blood Pressure 118/87 O2 Sat by Pulse 98 Oximetry O2 Sat by Pulse Oximetry [ Assessment] Constitutional: no acute distress, asleep Eyes: non-icteric ENT: oropharynx moist, other (S/P Tracheostomy) Neck: supple, no lymphadenopathy, no JVD Effort: mildly labored Ascultation: Bilateral: diminished breath sounds, wheezes, rhonchi (scant in bases) Percussion: Bilateral: not dull Cardiovascular: regular rate and rhythm, other (S1,S2, no murmurs) Gastrointestinal: normoactive bowel sounds, soft, non-tender, non-distended Integumentary: normal, decubitus ulcer (sacral / gluteal) Extremities: no cyanosis, no edema, pulses normal, other (atrophic looking limbs ) Neurologic: pupils equal and round, other (motor strength in extremities 1-2/5, awake, alert, mouths words to make needs known) Psychiatric: depressed CBC and BMP: 05/07/20 04:43 05/09/20 16:06 ABG, PT/INR, D-dimer: ABG ABG pH 7.371 (7.320-7.450) 03/08/20 12:34 POC ABG pCO2 63.1 mmHg (32.0-48.0) H 03/08/20 12:34 ABG pCO2 60.1 mm Hg 03/06/20 04:34 POC ABG pO2 90.5 mmHg (83-108) 03/08/20 12:34 ABG pO2 88.6 mm Hg (80.0-90.0) 03/06/20 04:34 POC ABG HCO3 35.7 03/08/20 12:34 ABG O2 Saturation 97.0 % (95.0-99.0) 03/06/20 04:34 PT/INR, D-dimer PT 15.6 Sec. (12.2-14.9) H 02/24/20 09:19 INR 1.21 (0.87-1.13) H 02/24/20 09:19 D-Dimer 1311.96 ng/mlDDU (0-234) H 02/24/20 09:19 Abnormal lab findings: Abnormal Labs 02/24/20 02/24/20 02/24/20 09:19 09:19 09:19 WBC 20.2 H RBC 5.05 H Hgb Hct MCV MCH RDW 15.3 H Plt Count Lymph % (Auto) [place] % (Auto) Lymph # (Auto) [place] # (Auto) Seg Neutrophils % Seg Neuts % (Manual) 86.0 H Lymphocytes % (Manual) 1.0 L Monocytes % (Manual) Basophils % (Manual) Seg Neutrophils # Seg Neutrophils # Man 17.4 H Lymphocytes # (Manual) 0.2 L Monocytes # (Manual) Eosinophils # (Manual) Basophils # (Manual) PT 15.6 H INR 1.21 H D-Dimer 1311.96 H ABG pH POC ABG pCO2 POC ABG pO2 ABG pO2 ABG HCO3 ABG O2 Saturation ABG Base Excess ABG Hemoglobin ABG Oxyhemoglobin ABG Potassium ABG Glucose Oxyhemoglobin Carboxyhemoglobin Sodium 135 L Potassium 3.2 L Chloride 92.2 L Carbon Dioxide BUN 6 L Creatinine < 0.2 L Glucose 124 H POC Glucose Calcium Ferritin Total Bilirubin 2.30 H Alkaline Phosphatase 132 H Lactate Dehydrogenase Total Creatine Kinase CK-MB (CK-2) Rel Index Troponin T 0.080 H C-Reactive Protein Total Protein Albumin 3.6 L Prealbumin LDL Cholesterol Direct 41 L HDL Cholesterol Arterial Blood Glucose Arterial Blood Ionized Calcium Urine WBC (Auto) 02/24/20 02/24/20 02/24/20 09:19 09:58 10:01 WBC RBC Hgb Hct MCV MCH RDW Plt Count Lymph % (Auto) [place] % (Auto) Lymph # (Auto) [place] # (Auto) Seg Neutrophils % Seg Neuts % (Manual) Lymphocytes % (Manual) Monocytes % (Manual) Basophils % (Manual) Seg Neutrophils # Seg Neutrophils # Man Lymphocytes # (Manual) Monocytes # (Manual) Eosinophils # (Manual) Basophils # (Manual) PT INR D-Dimer ABG pH 7.176 L* POC ABG pCO2 POC ABG pO2 ABG pO2 91.2 H ABG HCO3 ABG O2 Saturation ABG Base Excess -4.6 L ABG Hemoglobin ABG Oxyhemoglobin ABG Potassium ABG Glucose Oxyhemoglobin 92.6 L Carboxyhemoglobin Sodium Potassium Chloride Carbon Dioxide BUN Creatinine Glucose POC Glucose Calcium Ferritin 1715.0 H Total Bilirubin Alkaline Phosphatase Lactate Dehydrogenase 303 H Total Creatine Kinase CK-MB (CK-2) Rel Index Troponin T C-Reactive Protein 26.10 H Total Protein Albumin Prealbumin LDL Cholesterol Direct HDL Cholesterol Arterial Blood Glucose Arterial Blood Ionized Calcium Urine WBC (Auto) 02/24/20 02/24/20 02/24/20 11:52 13:45 19:35 WBC RBC Hgb Hct MCV MCH RDW Plt Count Lymph % (Auto) [place] % (Auto) Lymph # (Auto) [place] # (Auto) Seg Neutrophils % Seg Neuts % (Manual) Lymphocytes % (Manual) Monocytes % (Manual) Basophils % (Manual) Seg Neutrophils # Seg Neutrophils # Man Lymphocytes # (Manual) Monocytes # (Manual) Eosinophils # (Manual) Basophils # (Manual) PT INR D-Dimer ABG pH 7.051 L* 7.300 L POC ABG pCO2 POC ABG pO2 ABG pO2 94.7 H 75.1 L ABG HCO3 18.0 L ABG O2 Saturation 93.5 L ABG Base Excess -6.8 L -7.8 L ABG Hemoglobin 13.2 L 11.9 L ABG Oxyhemoglobin ABG Potassium ABG Glucose Oxyhemoglobin 91.0 L 92.7 L Carboxyhemoglobin Sodium Potassium Chloride Carbon Dioxide BUN Creatinine Glucose POC Glucose Calcium Ferritin Total Bilirubin Alkaline Phosphatase Lactate Dehydrogenase Total Creatine Kinase CK-MB (CK-2) Rel Index Troponin T 0.034 H D C-Reactive Protein Total Protein Albumin Prealbumin LDL Cholesterol Direct HDL Cholesterol Arterial Blood Glucose Arterial Blood Ionized Calcium Urine WBC (Auto) 02/25/20 02/25/20 02/25/20 04:00 04:00 12:26 WBC 22.9 H RBC Hgb Hct MCV 83 L MCH 27 L RDW Plt Count 468 H Lymph % (Auto) [place] % (Auto) Lymph # (Auto) [place] # (Auto) Seg Neutrophils % Seg Neuts % (Manual) 89.0 H Lymphocytes % (Manual) 7.0 L Monocytes % (Manual) Basophils % (Manual) Seg Neutrophils # Seg Neutrophils # Man 20.4 H Lymphocytes # (Manual) Monocytes # (Manual) Eosinophils # (Manual) Basophils # (Manual) PT INR D-Dimer ABG pH POC ABG pCO2 POC ABG pO2 ABG pO2 ABG HCO3 ABG O2 Saturation ABG Base Excess ABG Hemoglobin ABG Oxyhemoglobin ABG Potassium 2.6 L ABG Glucose 142 H Oxyhemoglobin Carboxyhemoglobin Sodium Potassium 3.2 L Chloride Carbon Dioxide 18 L BUN Creatinine 0.2 L Glucose 114 H POC Glucose Calcium Ferritin Total Bilirubin Alkaline Phosphatase Lactate Dehydrogenase Total Creatine Kinase CK-MB (CK-2) Rel Index Troponin T C-Reactive Protein Total Protein Albumin 3.5 L Prealbumin LDL Cholesterol Direct HDL Cholesterol Arterial Blood Glucose 142 H Arterial Blood Ionized Calcium Urine WBC (Auto) 02/26/20 02/26/20 02/26/20 15:58 17:00 23:43 WBC RBC Hgb Hct MCV MCH RDW Plt Count Lymph % (Auto) [place] % (Auto) Lymph # (Auto) [place] # (Auto) Seg Neutrophils % Seg Neuts % (Manual) Lymphocytes % (Manual) Monocytes % (Manual) Basophils % (Manual) Seg Neutrophils # Seg Neutrophils # Man Lymphocytes # (Manual) Monocytes # (Manual) Eosinophils # (Manual) Basophils # (Manual) PT INR D-Dimer ABG pH 7.502 H POC ABG pCO2 POC ABG pO2 213.6 H ABG pO2 ABG HCO3 ABG O2 Saturation ABG Base Excess ABG Hemoglobin ABG Oxyhemoglobin 99.2 H ABG Potassium 2.9 L ABG Glucose 160 H Oxyhemoglobin Carboxyhemoglobin 0.4 L Sodium Potassium Chloride Carbon Dioxide BUN Creatinine Glucose POC Glucose 189 H 120 H Calcium Ferritin Total Bilirubin Alkaline Phosphatase Lactate Dehydrogenase Total Creatine Kinase CK-MB (CK-2) Rel Index Troponin T C-Reactive Protein Total Protein Albumin Prealbumin LDL Cholesterol Direct HDL Cholesterol Arterial Blood Glucose 160 H Arterial Blood Ionized Calcium 4.5 L Urine WBC (Auto) 02/27/20 02/27/20 02/27/20 05:00 07:04 17:45 WBC RBC Hgb Hct MCV MCH RDW Plt Count Lymph % (Auto) [place] % (Auto) Lymph # (Auto) [place] # (Auto) Seg Neutrophils % Seg Neuts % (Manual) Lymphocytes % (Manual) Monocytes % (Manual) Basophils % (Manual) Seg Neutrophils # Seg Neutrophils # Man Lymphocytes # (Manual) Monocytes # (Manual) Eosinophils # (Manual) Basophils # (Manual) PT INR D-Dimer ABG pH 7.524 H POC ABG pCO2 POC ABG pO2 ABG pO2 ABG HCO3 ABG O2 Saturation ABG Base Excess ABG Hemoglobin ABG Oxyhemoglobin ABG Potassium 3.0 L ABG Glucose 143 H Oxyhemoglobin Carboxyhemoglobin Sodium Potassium Chloride Carbon Dioxide BUN Creatinine Glucose POC Glucose 154 H 175 H Calcium Ferritin Total Bilirubin Alkaline Phosphatase Lactate Dehydrogenase Total Creatine Kinase CK-MB (CK-2) Rel Index Troponin T C-Reactive Protein Total Protein Albumin Prealbumin LDL Cholesterol Direct HDL Cholesterol Arterial Blood Glucose 143 H Arterial Blood Ionized Calcium Urine WBC (Auto) 02/27/20 02/28/20 02/28/20 Unknown 00:21 04:15 WBC 18.7 H RBC Hgb Hct MCV MCH RDW Plt Count Lymph % (Auto) 8.7 L [place] % (Auto) Lymph # (Auto) [place] # (Auto) 1.2 H Seg Neutrophils % 84.6 H Seg Neuts % (Manual) Lymphocytes % (Manual) Monocytes % (Manual) Basophils % (Manual) Seg Neutrophils # 15.9 H Seg Neutrophils # Man Lymphocytes # (Manual) Monocytes # (Manual) Eosinophils # (Manual) Basophils # (Manual) PT INR D-Dimer ABG pH POC ABG pCO2 POC ABG pO2 ABG pO2 ABG HCO3 ABG O2 Saturation ABG Base Excess ABG Hemoglobin ABG Oxyhemoglobin ABG Potassium ABG Glucose Oxyhemoglobin Carboxyhemoglobin Sodium Potassium 2.9 L* Chloride Carbon Dioxide 33 H D BUN Creatinine < 0.2 L Glucose 157 H POC Glucose 134 H Calcium Ferritin Total Bilirubin Alkaline Phosphatase Lactate Dehydrogenase Total Creatine Kinase CK-MB (CK-2) Rel Index Troponin T C-Reactive Protein Total Protein Albumin Prealbumin LDL Cholesterol Direct HDL Cholesterol Arterial Blood Glucose Arterial Blood Ionized Calcium Urine WBC (Auto) 02/28/20 02/28/20 02/28/20 04:15 05:16 05:39 WBC RBC Hgb Hct MCV MCH RDW Plt Count Lymph % (Auto) [place] % (Auto) Lymph # (Auto) [place] # (Auto) Seg Neutrophils % Seg Neuts % (Manual) Lymphocytes % (Manual) Monocytes % (Manual) Basophils % (Manual) Seg Neutrophils # Seg Neutrophils # Man Lymphocytes # (Manual) Monocytes # (Manual) Eosinophils # (Manual) Basophils # (Manual) PT INR D-Dimer ABG pH POC ABG pCO2 POC ABG pO2 ABG pO2 142.9 H ABG HCO3 34.1 H ABG O2 Saturation ABG Base Excess 8.3 H ABG Hemoglobin ABG Oxyhemoglobin ABG Potassium ABG Glucose Oxyhemoglobin Carboxyhemoglobin Sodium 151 H Potassium Chloride Carbon Dioxide 32 H BUN Creatinine 0.2 L Glucose 167 H POC Glucose 138 H Calcium Ferritin Total Bilirubin Alkaline Phosphatase Lactate Dehydrogenase Total Creatine Kinase CK-MB (CK-2) Rel Index Troponin T C-Reactive Protein Total Protein Albumin Prealbumin LDL Cholesterol Direct HDL Cholesterol Arterial Blood Glucose Arterial Blood Ionized Calcium Urine WBC (Auto) 02/28/20 02/28/20 02/28/20 11:05 11:33 12:54 WBC RBC Hgb Hct MCV MCH RDW Plt Count Lymph % (Auto) [place] % (Auto) Lymph # (Auto) [place] # (Auto) Seg Neutrophils % Seg Neuts % (Manual) Lymphocytes % (Manual) Monocytes % (Manual) Basophils % (Manual) Seg Neutrophils # Seg Neutrophils # Man Lymphocytes # (Manual) Monocytes # (Manual) Eosinophils # (Manual) Basophils # (Manual) PT INR D-Dimer ABG pH POC ABG pCO2 POC ABG pO2 ABG pO2 ABG HCO3 ABG O2 Saturation ABG Base Excess ABG Hemoglobin ABG Oxyhemoglobin ABG Potassium ABG Glucose Oxyhemoglobin Carboxyhemoglobin Sodium Potassium Chloride Carbon Dioxide BUN Creatinine Glucose POC Glucose 160 H Calcium Ferritin Total Bilirubin Alkaline Phosphatase Lactate Dehydrogenase Total Creatine Kinase CK-MB (CK-2) Rel Index Troponin T C-Reactive Protein 4.70 H Total Protein Albumin Prealbumin 0.090 L LDL Cholesterol Direct HDL Cholesterol Arterial Blood Glucose Arterial Blood Ionized Calcium Urine WBC (Auto) 02/28/20 02/29/20 02/29/20 17:34 00:44 04:05 WBC 19.6 H RBC Hgb Hct MCV MCH 27 L RDW 15.4 H Plt Count Lymph % (Auto) [place] % (Auto) Lymph # (Auto) [place] # (Auto) Seg Neutrophils % Seg Neuts % (Manual) 86.0 H Lymphocytes % (Manual) 7.0 L Monocytes % (Manual) Basophils % (Manual) Seg Neutrophils # Seg Neutrophils # Man 16.9 H Lymphocytes # (Manual) Monocytes # (Manual) 1.2 H Eosinophils # (Manual) Basophils # (Manual) PT INR D-Dimer ABG pH POC ABG pCO2 POC ABG pO2 ABG pO2 ABG HCO3 ABG O2 Saturation ABG Base Excess ABG Hemoglobin ABG Oxyhemoglobin ABG Potassium ABG Glucose Oxyhemoglobin Carboxyhemoglobin Sodium Potassium Chloride Carbon Dioxide BUN Creatinine Glucose POC Glucose 136 H 156 H Calcium Ferritin Total Bilirubin Alkaline Phosphatase Lactate Dehydrogenase Total Creatine Kinase CK-MB (CK-2) Rel Index Troponin T C-Reactive Protein Total Protein Albumin Prealbumin LDL Cholesterol Direct HDL Cholesterol Arterial Blood Glucose Arterial Blood Ionized Calcium Urine WBC (Auto) 02/29/20 02/29/20 02/29/20 04:05 05:14 05:33 WBC RBC Hgb Hct MCV MCH RDW Plt Count Lymph % (Auto) [place] % (Auto) Lymph # (Auto) [place] # (Auto) Seg Neutrophils % Seg Neuts % (Manual) Lymphocytes % (Manual) Monocytes % (Manual) Basophils % (Manual) Seg Neutrophils # Seg Neutrophils # Man Lymphocytes # (Manual) Monocytes # (Manual) Eosinophils # (Manual) Basophils # (Manual) PT INR D-Dimer ABG pH POC ABG pCO2 54.3 H POC ABG pO2 124.8 H ABG pO2 ABG HCO3 ABG O2 Saturation ABG Base Excess ABG Hemoglobin ABG Oxyhemoglobin ABG Potassium ABG Glucose 185 H Oxyhemoglobin Carboxyhemoglobin Sodium 148 H Potassium Chloride Carbon Dioxide 33 H BUN Creatinine < 0.2 L Glucose 173 H POC Glucose 152 H Calcium Ferritin Total Bilirubin Alkaline Phosphatase Lactate Dehydrogenase Total Creatine Kinase CK-MB (CK-2) Rel Index Troponin T C-Reactive Protein Total Protein Albumin Prealbumin LDL Cholesterol Direct HDL Cholesterol Arterial Blood Glucose 185 H Arterial Blood Ionized Calcium Urine WBC (Auto) 03/01/20 03/01/20 03/01/20 00:00 03:45 04:33 WBC 23.1 H RBC Hgb Hct MCV MCH 27 L RDW 15.3 H Plt Count Lymph % (Auto) [place] % (Auto) Lymph # (Auto) [place] # (Auto) Seg Neutrophils % Seg Neuts % (Manual) 92.0 H Lymphocytes % (Manual) 6.0 L Monocytes % (Manual) Basophils % (Manual) Seg Neutrophils # Seg Neutrophils # Man 21.3 H Lymphocytes # (Manual) Monocytes # (Manual) Eosinophils # (Manual) 0.5 H Basophils # (Manual) PT INR D-Dimer ABG pH 7.492 H POC ABG pCO2 POC ABG pO2 ABG pO2 157.1 H ABG HCO3 32.3 H ABG O2 Saturation ABG Base Excess 8.1 H ABG Hemoglobin 13.2 L ABG Oxyhemoglobin ABG Potassium ABG Glucose Oxyhemoglobin Carboxyhemoglobin Sodium Potassium Chloride Carbon Dioxide BUN Creatinine Glucose POC Glucose 109 H Calcium Ferritin Total Bilirubin Alkaline Phosphatase Lactate Dehydrogenase Total Creatine Kinase CK-MB (CK-2) Rel Index Troponin T C-Reactive Protein Total Protein Albumin Prealbumin LDL Cholesterol Direct HDL Cholesterol Arterial Blood Glucose Arterial Blood Ionized Calcium Urine WBC (Auto) 03/01/20 03/01/20 03/01/20 04:33 05:29 12:32 WBC RBC Hgb Hct MCV MCH RDW Plt Count Lymph % (Auto) [place] % (Auto) Lymph # (Auto) [place] # (Auto) Seg Neutrophils % Seg Neuts % (Manual) Lymphocytes % (Manual) Monocytes % (Manual) Basophils % (Manual) Seg Neutrophils # Seg Neutrophils # Man Lymphocytes # (Manual) Monocytes # (Manual) Eosinophils # (Manual) Basophils # (Manual) PT INR D-Dimer ABG pH POC ABG pCO2 POC ABG pO2 ABG pO2 ABG HCO3 ABG O2 Saturation ABG Base Excess ABG Hemoglobin ABG Oxyhemoglobin ABG Potassium ABG Glucose Oxyhemoglobin Carboxyhemoglobin Sodium 146 H Potassium Chloride Carbon Dioxide 32 H BUN Creatinine < 0.2 L Glucose 120 H POC Glucose 120 H 128 H Calcium Ferritin Total Bilirubin Alkaline Phosphatase Lactate Dehydrogenase Total Creatine Kinase CK-MB (CK-2) Rel Index Troponin T C-Reactive Protein Total Protein Albumin Prealbumin LDL Cholesterol Direct HDL Cholesterol Arterial Blood Glucose Arterial Blood Ionized Calcium Urine WBC (Auto) 03/01/20 03/01/20 03/02/20 17:38 23:46 06:13 WBC RBC Hgb Hct MCV MCH RDW Plt Count Lymph % (Auto) [place] % (Auto) Lymph # (Auto) [place] # (Auto) Seg Neutrophils % Seg Neuts % (Manual) Lymphocytes % (Manual) Monocytes % (Manual) Basophils % (Manual) Seg Neutrophils # Seg Neutrophils # Man Lymphocytes # (Manual) Monocytes # (Manual) Eosinophils # (Manual) Basophils # (Manual) PT INR D-Dimer ABG pH POC ABG pCO2 POC ABG pO2 ABG pO2 ABG HCO3 ABG O2 Saturation ABG Base Excess ABG Hemoglobin ABG Oxyhemoglobin ABG Potassium ABG Glucose Oxyhemoglobin Carboxyhemoglobin Sodium Potassium Chloride Carbon Dioxide BUN Creatinine Glucose POC Glucose 114 H 121 H 120 H Calcium Ferritin Total Bilirubin Alkaline Phosphatase Lactate Dehydrogenase Total Creatine Kinase CK-MB (CK-2) Rel Index Troponin T C-Reactive Protein Total Protein Albumin Prealbumin LDL Cholesterol Direct HDL Cholesterol Arterial Blood Glucose Arterial Blood Ionized Calcium Urine WBC (Auto) 03/02/20 03/02/20 03/03/20 09:47 09:47 10:21 WBC 23.6 H RBC Hgb Hct MCV MCH RDW 15.3 H Plt Count 494 H Lymph % (Auto) [place] % (Auto) Lymph # (Auto) [place] # (Auto) Seg Neutrophils % Seg Neuts % (Manual) 85.0 H Lymphocytes % (Manual) 6.0 L Monocytes % (Manual) Basophils % (Manual) Seg Neutrophils # Seg Neutrophils # Man 20.1 H Lymphocytes # (Manual) Monocytes # (Manual) 1.7 H Eosinophils # (Manual) Basophils # (Manual) PT INR D-Dimer ABG pH POC ABG pCO2 POC ABG pO2 ABG pO2 ABG HCO3 ABG O2 Saturation ABG Base Excess ABG Hemoglobin ABG Oxyhemoglobin ABG Potassium 3.3 L ABG Glucose 158 H Oxyhemoglobin Carboxyhemoglobin Sodium Potassium Chloride Carbon Dioxide BUN Creatinine < 0.2 L Glucose 177 H POC Glucose Calcium Ferritin Total Bilirubin Alkaline Phosphatase Lactate Dehydrogenase Total Creatine Kinase CK-MB (CK-2) Rel Index Troponin T C-Reactive Protein Total Protein Albumin Prealbumin LDL Cholesterol Direct HDL Cholesterol Arterial Blood Glucose 158 H Arterial Blood Ionized Calcium Urine WBC (Auto) 03/03/20 03/04/20 03/04/20 21:30 00:00 12:23 WBC RBC Hgb Hct MCV MCH RDW Plt Count Lymph % (Auto) [place] % (Auto) Lymph # (Auto) [place] # (Auto) Seg Neutrophils % Seg Neuts % (Manual) Lymphocytes % (Manual) Monocytes % (Manual) Basophils % (Manual) Seg Neutrophils # Seg Neutrophils # Man Lymphocytes # (Manual) Monocytes # (Manual) Eosinophils # (Manual) Basophils # (Manual) PT INR D-Dimer ABG pH 7.328 L POC ABG pCO2 POC ABG pO2 ABG pO2 68.4 L ABG HCO3 35.0 H ABG O2 Saturation 93.9 L ABG Base Excess 6.8 H ABG Hemoglobin 12.7 L ABG Oxyhemoglobin ABG Potassium ABG Glucose Oxyhemoglobin 91.9 L Carboxyhemoglobin Sodium Potassium Chloride Carbon Dioxide BUN Creatinine Glucose POC Glucose 187 H 163 H Calcium Ferritin Total Bilirubin Alkaline Phosphatase Lactate Dehydrogenase Total Creatine Kinase CK-MB (CK-2) Rel Index Troponin T C-Reactive Protein Total Protein Albumin Prealbumin LDL Cholesterol Direct HDL Cholesterol Arterial Blood Glucose Arterial Blood Ionized Calcium Urine WBC (Auto) 03/04/20 03/04/20 03/05/20 18:15 21:30 06:02 WBC RBC Hgb Hct MCV MCH RDW Plt Count Lymph % (Auto) [place] % (Auto) Lymph # (Auto) [place] # (Auto) Seg Neutrophils % Seg Neuts % (Manual) Lymphocytes % (Manual) Monocytes % (Manual) Basophils % (Manual) Seg Neutrophils # Seg Neutrophils # Man Lymphocytes # (Manual) Monocytes # (Manual) Eosinophils # (Manual) Basophils # (Manual) PT INR D-Dimer ABG pH 7.297 L POC ABG pCO2 POC ABG pO2 ABG pO2 ABG HCO3 41.0 H ABG O2 Saturation ABG Base Excess 11.0 H ABG Hemoglobin 13.1 L ABG Oxyhemoglobin ABG Potassium ABG Glucose Oxyhemoglobin 94.5 L Carboxyhemoglobin Sodium Potassium Chloride Carbon Dioxide BUN Creatinine Glucose POC Glucose 192 H 127 H Calcium Ferritin Total Bilirubin Alkaline Phosphatase Lactate Dehydrogenase Total Creatine Kinase CK-MB (CK-2) Rel Index Troponin T C-Reactive Protein Total Protein Albumin Prealbumin LDL Cholesterol Direct HDL Cholesterol Arterial Blood Glucose Arterial Blood Ionized Calcium Urine WBC (Auto) 03/05/20 03/05/20 03/06/20 12:09 16:42 00:24 WBC RBC Hgb Hct MCV MCH RDW Plt Count Lymph % (Auto) [place] % (Auto) Lymph # (Auto) [place] # (Auto) Seg Neutrophils % Seg Neuts % (Manual) Lymphocytes % (Manual) Monocytes % (Manual) Basophils % (Manual) Seg Neutrophils # Seg Neutrophils # Man Lymphocytes # (Manual) Monocytes # (Manual) Eosinophils # (Manual) Basophils # (Manual) PT INR D-Dimer ABG pH POC ABG pCO2 POC ABG pO2 ABG pO2 ABG HCO3 ABG O2 Saturation ABG Base Excess ABG Hemoglobin ABG Oxyhemoglobin ABG Potassium ABG Glucose Oxyhemoglobin Carboxyhemoglobin Sodium Potassium Chloride Carbon Dioxide BUN Creatinine Glucose POC Glucose 147 H 114 H 134 H Calcium Ferritin Total Bilirubin Alkaline Phosphatase Lactate Dehydrogenase Total Creatine Kinase CK-MB (CK-2) Rel Index Troponin T C-Reactive Protein Total Protein Albumin Prealbumin LDL Cholesterol Direct HDL Cholesterol Arterial Blood Glucose Arterial Blood Ionized Calcium Urine WBC (Auto) 03/06/20 03/06/20 03/06/20 04:34 05:53 06:08 WBC 25.4 H RBC Hgb 10.5 L Hct 32.7 L MCV MCH 27 L RDW 15.3 H Plt Count 634 H Lymph % (Auto) [place] % (Auto) Lymph # (Auto) [place] # (Auto) Seg Neutrophils % Seg Neuts % (Manual) 88.0 H Lymphocytes % (Manual) 2.0 L Monocytes % (Manual) 8.0 H Basophils % (Manual) Seg Neutrophils # Seg Neutrophils # Man 22.4 H Lymphocytes # (Manual) 0.5 L Monocytes # (Manual) 2.0 H Eosinophils # (Manual) Basophils # (Manual) PT INR D-Dimer ABG pH POC ABG pCO2 POC ABG pO2 ABG pO2 ABG HCO3 37.9 H ABG O2 Saturation ABG Base Excess 11.4 H ABG Hemoglobin 10.6 L ABG Oxyhemoglobin ABG Potassium ABG Glucose Oxyhemoglobin 94.7 L Carboxyhemoglobin Sodium Potassium Chloride Carbon Dioxide BUN Creatinine Glucose POC Glucose 135 H Calcium Ferritin Total Bilirubin Alkaline Phosphatase Lactate Dehydrogenase Total Creatine Kinase CK-MB (CK-2) Rel Index Troponin T C-Reactive Protein Total Protein Albumin Prealbumin LDL Cholesterol Direct HDL Cholesterol Arterial Blood Glucose Arterial Blood Ionized Calcium Urine WBC (Auto) 03/06/20 03/06/20 03/06/20 06:08 12:19 19:10 WBC RBC Hgb Hct MCV MCH RDW Plt Count Lymph % (Auto) [place] % (Auto) Lymph # (Auto) [place] # (Auto) Seg Neutrophils % Seg Neuts % (Manual) Lymphocytes % (Manual) Monocytes % (Manual) Basophils % (Manual) Seg Neutrophils # Seg Neutrophils # Man Lymphocytes # (Manual) Monocytes # (Manual) Eosinophils # (Manual) Basophils # (Manual) PT INR D-Dimer ABG pH POC ABG pCO2 POC ABG pO2 ABG pO2 ABG HCO3 ABG O2 Saturation ABG Base Excess ABG Hemoglobin ABG Oxyhemoglobin ABG Potassium ABG Glucose Oxyhemoglobin Carboxyhemoglobin Sodium 150 H D Potassium Chloride Carbon Dioxide 39 H D BUN 23 H Creatinine < 0.2 L Glucose 144 H POC Glucose 169 H 152 H Calcium Ferritin Total Bilirubin Alkaline Phosphatase Lactate Dehydrogenase Total Creatine Kinase CK-MB (CK-2) Rel Index Troponin T C-Reactive Protein Total Protein Albumin 3.3 L Prealbumin LDL Cholesterol Direct HDL Cholesterol Arterial Blood Glucose Arterial Blood Ionized Calcium Urine WBC (Auto) 03/06/20 03/07/20 03/07/20 23:58 04:25 04:25 WBC 22.1 H RBC Hgb 10.9 L Hct 32.9 L MCV MCH RDW 15.5 H Plt Count 739 H Lymph % (Auto) 7.8 L [place] % (Auto) Lymph # (Auto) [place] # (Auto) 1.3 H Seg Neutrophils % 85.5 H Seg Neuts % (Manual) Lymphocytes % (Manual) Monocytes % (Manual) Basophils % (Manual) Seg Neutrophils # 18.9 H Seg Neutrophils # Man Lymphocytes # (Manual) Monocytes # (Manual) Eosinophils # (Manual) Basophils # (Manual) PT INR D-Dimer ABG pH POC ABG pCO2 POC ABG pO2 ABG pO2 ABG HCO3 ABG O2 Saturation ABG Base Excess ABG Hemoglobin ABG Oxyhemoglobin ABG Potassium ABG Glucose Oxyhemoglobin Carboxyhemoglobin Sodium 146 H Potassium Chloride Carbon Dioxide 37 H BUN Creatinine < 0.2 L Glucose 118 H POC Glucose 111 H Calcium Ferritin Total Bilirubin Alkaline Phosphatase Lactate Dehydrogenase Total Creatine Kinase CK-MB (CK-2) Rel Index Troponin T C-Reactive Protein Total Protein Albumin 3.7 L Prealbumin LDL Cholesterol Direct HDL Cholesterol Arterial Blood Glucose Arterial Blood Ionized Calcium Urine WBC (Auto) 03/07/20 03/07/20 03/07/20 05:20 17:45 23:32 WBC RBC Hgb Hct MCV MCH RDW Plt Count Lymph % (Auto) [place] % (Auto) Lymph # (Auto) [place] # (Auto) Seg Neutrophils % Seg Neuts % (Manual) Lymphocytes % (Manual) Monocytes % (Manual) Basophils % (Manual) Seg Neutrophils # Seg Neutrophils # Man Lymphocytes # (Manual) Monocytes # (Manual) Eosinophils # (Manual) Basophils # (Manual) PT INR D-Dimer ABG pH POC ABG pCO2 POC ABG pO2 ABG pO2 ABG HCO3 ABG O2 Saturation ABG Base Excess ABG Hemoglobin ABG Oxyhemoglobin ABG Potassium ABG Glucose Oxyhemoglobin Carboxyhemoglobin Sodium Potassium Chloride Carbon Dioxide BUN Creatinine Glucose POC Glucose 113 H 124 H 210 H Calcium Ferritin Total Bilirubin Alkaline Phosphatase Lactate Dehydrogenase Total Creatine Kinase CK-MB (CK-2) Rel Index Troponin T C-Reactive Protein Total Protein Albumin Prealbumin LDL Cholesterol Direct HDL Cholesterol Arterial Blood Glucose Arterial Blood Ionized Calcium Urine WBC (Auto) 03/08/20 03/08/20 03/08/20 05:35 06:43 06:43 WBC 28.9 H RBC 3.53 L Hgb 9.7 L Hct 30.3 L MCV MCH RDW 15.6 H Plt Count 578 H Lymph % (Auto) [place] % (Auto) Lymph # (Auto) [place] # (Auto) Seg Neutrophils % Seg Neuts % (Manual) 93.0 H Lymphocytes % (Manual) 4.0 L Monocytes % (Manual) Basophils % (Manual) Seg Neutrophils # Seg Neutrophils # Man 26.9 H Lymphocytes # (Manual) Monocytes # (Manual) Eosinophils # (Manual) Basophils # (Manual) PT INR D-Dimer ABG pH POC ABG pCO2 POC ABG pO2 ABG pO2 ABG HCO3 ABG O2 Saturation ABG Base Excess ABG Hemoglobin ABG Oxyhemoglobin ABG Potassium ABG Glucose Oxyhemoglobin Carboxyhemoglobin Sodium 146 H Potassium Chloride Carbon Dioxide 35 H BUN 34 H Creatinine 0.3 L D Glucose 125 H POC Glucose 147 H Calcium Ferritin Total Bilirubin Alkaline Phosphatase Lactate Dehydrogenase Total Creatine Kinase CK-MB (CK-2) Rel Index Troponin T C-Reactive Protein Total Protein 5.9 L Albumin 3.2 L Prealbumin LDL Cholesterol Direct HDL Cholesterol Arterial Blood Glucose Arterial Blood Ionized Calcium Urine WBC (Auto) 03/08/20 03/08/20 03/08/20 08:57 11:14 12:34 WBC RBC Hgb Hct MCV MCH RDW Plt Count Lymph % (Auto) [place] % (Auto) Lymph # (Auto) [place] # (Auto) Seg Neutrophils % Seg Neuts % (Manual) Lymphocytes % (Manual) Monocytes % (Manual) Basophils % (Manual) Seg Neutrophils # Seg Neutrophils # Man Lymphocytes # (Manual) Monocytes # (Manual) Eosinophils # (Manual) Basophils # (Manual) PT INR D-Dimer ABG pH POC ABG pCO2 63.1 H POC ABG pO2 ABG pO2 ABG HCO3 ABG O2 Saturation ABG Base Excess ABG Hemoglobin 10.9 L ABG Oxyhemoglobin ABG Potassium ABG Glucose 176 H Oxyhemoglobin Carboxyhemoglobin Sodium Potassium Chloride Carbon Dioxide BUN Creatinine Glucose POC Glucose 171 H Calcium Ferritin Total Bilirubin Alkaline Phosphatase Lactate Dehydrogenase Total Creatine Kinase CK-MB (CK-2) Rel Index Troponin T C-Reactive Protein Total Protein Albumin Prealbumin LDL Cholesterol Direct HDL Cholesterol Arterial Blood Glucose 176 H Arterial Blood Ionized Calcium 4.5 L Urine WBC (Auto) 10.0 H 03/08/20 03/08/20 03/09/20 18:02 23:43 05:49 WBC RBC Hgb Hct MCV MCH RDW Plt Count Lymph % (Auto) [place] % (Auto) Lymph # (Auto) [place] # (Auto) Seg Neutrophils % Seg Neuts % (Manual) Lymphocytes % (Manual) Monocytes % (Manual) Basophils % (Manual) Seg Neutrophils # Seg Neutrophils # Man Lymphocytes # (Manual) Monocytes # (Manual) Eosinophils # (Manual) Basophils # (Manual) PT INR D-Dimer ABG pH POC ABG pCO2 POC ABG pO2 ABG pO2 ABG HCO3 ABG O2 Saturation ABG Base Excess ABG Hemoglobin ABG Oxyhemoglobin ABG Potassium ABG Glucose Oxyhemoglobin Carboxyhemoglobin Sodium Potassium Chloride Carbon Dioxide BUN Creatinine Glucose POC Glucose 157 H 134 H 163 H Calcium Ferritin Total Bilirubin Alkaline Phosphatase Lactate Dehydrogenase Total Creatine Kinase CK-MB (CK-2) Rel Index Troponin T C-Reactive Protein Total Protein Albumin Prealbumin LDL Cholesterol Direct HDL Cholesterol Arterial Blood Glucose Arterial Blood Ionized Calcium Urine WBC (Auto) 03/09/20 03/09/20 03/09/20 08:35 08:35 12:11 WBC 23.4 H RBC 3.36 L Hgb 9.3 L Hct 28.8 L MCV MCH RDW 15.9 H Plt Count 521 H Lymph % (Auto) [place] % (Auto) Lymph # (Auto) [place] # (Auto) Seg Neutrophils % Seg Neuts % (Manual) 87.0 H Lymphocytes % (Manual) 4.0 L Monocytes % (Manual) 9.0 H Basophils % (Manual) Seg Neutrophils # Seg Neutrophils # Man 20.4 H Lymphocytes # (Manual) 0.9 L Monocytes # (Manual) 2.1 H Eosinophils # (Manual) Basophils # (Manual) PT INR D-Dimer ABG pH POC ABG pCO2 POC ABG pO2 ABG pO2 ABG HCO3 ABG O2 Saturation ABG Base Excess ABG Hemoglobin ABG Oxyhemoglobin ABG Potassium ABG Glucose Oxyhemoglobin Carboxyhemoglobin Sodium 147 H Potassium Chloride Carbon Dioxide 37 H BUN 63 H Creatinine Glucose 154 H POC Glucose 128 H Calcium Ferritin Total Bilirubin Alkaline Phosphatase Lactate Dehydrogenase Total Creatine Kinase CK-MB (CK-2) Rel Index Troponin T C-Reactive Protein Total Protein Albumin Prealbumin LDL Cholesterol Direct HDL Cholesterol Arterial Blood Glucose Arterial Blood Ionized Calcium Urine WBC (Auto) 03/09/20 03/10/20 03/10/20 17:51 00:25 05:41 WBC RBC Hgb Hct MCV MCH RDW Plt Count Lymph % (Auto) [place] % (Auto) Lymph # (Auto) [place] # (Auto) Seg Neutrophils % Seg Neuts % (Manual) Lymphocytes % (Manual) Monocytes % (Manual) Basophils % (Manual) Seg Neutrophils # Seg Neutrophils # Man Lymphocytes # (Manual) Monocytes # (Manual) Eosinophils # (Manual) Basophils # (Manual) PT INR D-Dimer ABG pH POC ABG pCO2 POC ABG pO2 ABG pO2 ABG HCO3 ABG O2 Saturation ABG Base Excess ABG Hemoglobin ABG Oxyhemoglobin ABG Potassium ABG Glucose Oxyhemoglobin Carboxyhemoglobin Sodium Potassium Chloride Carbon Dioxide BUN Creatinine Glucose POC Glucose 127 H 128 H 153 H Calcium Ferritin Total Bilirubin Alkaline Phosphatase Lactate Dehydrogenase Total Creatine Kinase CK-MB (CK-2) Rel Index Troponin T C-Reactive Protein Total Protein Albumin Prealbumin LDL Cholesterol Direct HDL Cholesterol Arterial Blood Glucose Arterial Blood Ionized Calcium Urine WBC (Auto) 03/10/20 03/10/20 03/10/20 06:14 06:14 12:02 WBC 18.3 H RBC 3.45 L Hgb 9.5 L Hct 29.5 L MCV MCH RDW 16.1 H Plt Count 494 H Lymph % (Auto) [place] % (Auto) Lymph # (Auto) [place] # (Auto) Seg Neutrophils % Seg Neuts % (Manual) 95.0 H Lymphocytes % (Manual) 1.0 L Monocytes % (Manual) Basophils % (Manual) Seg Neutrophils # Seg Neutrophils # Man 17.4 H Lymphocytes # (Manual) 0.2 L Monocytes # (Manual) Eosinophils # (Manual) Basophils # (Manual) PT INR D-Dimer ABG pH POC ABG pCO2 POC ABG pO2 ABG pO2 ABG HCO3 ABG O2 Saturation ABG Base Excess ABG Hemoglobin ABG Oxyhemoglobin ABG Potassium ABG Glucose Oxyhemoglobin Carboxyhemoglobin Sodium 149 H Potassium Chloride Carbon Dioxide 35 H BUN 34 H Creatinine 0.2 L D Glucose 177 H POC Glucose 151 H Calcium Ferritin Total Bilirubin Alkaline Phosphatase Lactate Dehydrogenase Total Creatine Kinase CK-MB (CK-2) Rel Index Troponin T C-Reactive Protein Total Protein Albumin Prealbumin LDL Cholesterol Direct HDL Cholesterol Arterial Blood Glucose Arterial Blood Ionized Calcium Urine WBC (Auto) 03/10/20 03/10/20 03/11/20 17:41 23:53 05:02 WBC RBC Hgb Hct MCV MCH RDW Plt Count Lymph % (Auto) [place] % (Auto) Lymph # (Auto) [place] # (Auto) Seg Neutrophils % Seg Neuts % (Manual) Lymphocytes % (Manual) Monocytes % (Manual) Basophils % (Manual) Seg Neutrophils # Seg Neutrophils # Man Lymphocytes # (Manual) Monocytes # (Manual) Eosinophils # (Manual) Basophils # (Manual) PT INR D-Dimer ABG pH POC ABG pCO2 POC ABG pO2 ABG pO2 ABG HCO3 ABG O2 Saturation ABG Base Excess ABG Hemoglobin ABG Oxyhemoglobin ABG Potassium ABG Glucose Oxyhemoglobin Carboxyhemoglobin Sodium Potassium Chloride Carbon Dioxide BUN Creatinine Glucose POC Glucose 168 H 142 H 146 H Calcium Ferritin Total Bilirubin Alkaline Phosphatase Lactate Dehydrogenase Total Creatine Kinase CK-MB (CK-2) Rel Index Troponin T C-Reactive Protein Total Protein Albumin Prealbumin LDL Cholesterol Direct HDL Cholesterol Arterial Blood Glucose Arterial Blood Ionized Calcium Urine WBC (Auto) 03/11/20 03/11/20 03/11/20 11:30 14:01 14:01 WBC 19.7 H RBC 3.04 L Hgb 8.7 L Hct 25.8 L MCV MCH RDW 15.6 H Plt Count Lymph % (Auto) [place] % (Auto) Lymph # (Auto) [place] # (Auto) Seg Neutrophils % Seg Neuts % (Manual) Lymphocytes % (Manual) Monocytes % (Manual) Basophils % (Manual) Seg Neutrophils # Seg Neutrophils # Man Lymphocytes # (Manual) Monocytes # (Manual) Eosinophils # (Manual) Basophils # (Manual) PT INR D-Dimer ABG pH POC ABG pCO2 POC ABG pO2 ABG pO2 ABG HCO3 ABG O2 Saturation ABG Base Excess ABG Hemoglobin ABG Oxyhemoglobin ABG Potassium ABG Glucose Oxyhemoglobin Carboxyhemoglobin Sodium 151 H Potassium Chloride Carbon Dioxide 37 H BUN Creatinine < 0.2 L Glucose 171 H POC Glucose 248 H Calcium Ferritin Total Bilirubin Alkaline Phosphatase Lactate Dehydrogenase Total Creatine Kinase CK-MB (CK-2) Rel Index Troponin T C-Reactive Protein Total Protein Albumin Prealbumin LDL Cholesterol Direct HDL Cholesterol Arterial Blood Glucose Arterial Blood Ionized Calcium Urine WBC (Auto) 03/11/20 03/11/20 03/12/20 17:09 23:52 04:39 WBC 19.9 H RBC 3.16 L Hgb 8.9 L Hct 27.5 L MCV MCH RDW 15.7 H Plt Count Lymph % (Auto) 6.8 L [place] % (Auto) Lymph # (Auto) [place] # (Auto) 1.2 H Seg Neutrophils % 86.0 H Seg Neuts % (Manual) Lymphocytes % (Manual) Monocytes % (Manual) Basophils % (Manual) Seg Neutrophils # 17.1 H Seg Neutrophils # Man Lymphocytes # (Manual) Monocytes # (Manual) Eosinophils # (Manual) Basophils # (Manual) PT INR D-Dimer ABG pH POC ABG pCO2 POC ABG pO2 ABG pO2 ABG HCO3 ABG O2 Saturation ABG Base Excess ABG Hemoglobin ABG Oxyhemoglobin ABG Potassium ABG Glucose Oxyhemoglobin Carboxyhemoglobin Sodium Potassium Chloride Carbon Dioxide BUN Creatinine Glucose POC Glucose 124 H 131 H Calcium Ferritin Total Bilirubin Alkaline Phosphatase Lactate Dehydrogenase Total Creatine Kinase CK-MB (CK-2) Rel Index Troponin T C-Reactive Protein Total Protein Albumin Prealbumin LDL Cholesterol Direct HDL Cholesterol Arterial Blood Glucose Arterial Blood Ionized Calcium Urine WBC (Auto) 03/12/20 03/12/20 03/12/20 04:39 05:28 11:34 WBC RBC Hgb Hct MCV MCH RDW Plt Count Lymph % (Auto) [place] % (Auto) Lymph # (Auto) [place] # (Auto) Seg Neutrophils % Seg Neuts % (Manual) Lymphocytes % (Manual) Monocytes % (Manual) Basophils % (Manual) Seg Neutrophils # Seg Neutrophils # Man Lymphocytes # (Manual) Monocytes # (Manual) Eosinophils # (Manual) Basophils # (Manual) PT INR D-Dimer ABG pH POC ABG pCO2 POC ABG pO2 ABG pO2 ABG HCO3 ABG O2 Saturation ABG Base Excess ABG Hemoglobin ABG Oxyhemoglobin ABG Potassium ABG Glucose Oxyhemoglobin Carboxyhemoglobin Sodium 147 H Potassium Chloride Carbon Dioxide 40 H BUN Creatinine < 0.2 L Glucose 175 H POC Glucose 167 H 144 H Calcium Ferritin Total Bilirubin Alkaline Phosphatase Lactate Dehydrogenase Total Creatine Kinase CK-MB (CK-2) Rel Index Troponin T C-Reactive Protein Total Protein Albumin Prealbumin LDL Cholesterol Direct HDL Cholesterol Arterial Blood Glucose Arterial Blood Ionized Calcium Urine WBC (Auto) 03/12/20 03/12/20 03/13/20 17:32 23:57 05:57 WBC RBC Hgb Hct MCV MCH RDW Plt Count Lymph % (Auto) [place] % (Auto) Lymph # (Auto) [place] # (Auto) Seg Neutrophils % Seg Neuts % (Manual) Lymphocytes % (Manual) Monocytes % (Manual) Basophils % (Manual) Seg Neutrophils # Seg Neutrophils # Man Lymphocytes # (Manual) Monocytes # (Manual) Eosinophils # (Manual) Basophils # (Manual) PT INR D-Dimer ABG pH POC ABG pCO2 POC ABG pO2 ABG pO2 ABG HCO3 ABG O2 Saturation ABG Base Excess ABG Hemoglobin ABG Oxyhemoglobin ABG Potassium ABG Glucose Oxyhemoglobin Carboxyhemoglobin Sodium Potassium Chloride Carbon Dioxide BUN Creatinine Glucose POC Glucose 141 H 137 H 161 H Calcium Ferritin Total Bilirubin Alkaline Phosphatase Lactate Dehydrogenase Total Creatine Kinase CK-MB (CK-2) Rel Index Troponin T C-Reactive Protein Total Protein Albumin Prealbumin LDL Cholesterol Direct HDL Cholesterol Arterial Blood Glucose Arterial Blood Ionized Calcium Urine WBC (Auto) 03/13/20 03/13/20 03/13/20 12:28 14:14 18:39 WBC RBC Hgb Hct MCV MCH RDW Plt Count Lymph % (Auto) [place] % (Auto) Lymph # (Auto) [place] # (Auto) Seg Neutrophils % Seg Neuts % (Manual) Lymphocytes % (Manual) Monocytes % (Manual) Basophils % (Manual) Seg Neutrophils # Seg Neutrophils # Man Lymphocytes # (Manual) Monocytes # (Manual) Eosinophils # (Manual) Basophils # (Manual) PT INR D-Dimer ABG pH POC ABG pCO2 POC ABG pO2 ABG pO2 ABG HCO3 ABG O2 Saturation ABG Base Excess ABG Hemoglobin ABG Oxyhemoglobin ABG Potassium ABG Glucose Oxyhemoglobin Carboxyhemoglobin Sodium Potassium Chloride Carbon Dioxide 39 H BUN Creatinine < 0.2 L Glucose 129 H POC Glucose 130 H 125 H Calcium Ferritin Total Bilirubin Alkaline Phosphatase Lactate Dehydrogenase Total Creatine Kinase CK-MB (CK-2) Rel Index Troponin T C-Reactive Protein Total Protein Albumin Prealbumin LDL Cholesterol Direct HDL Cholesterol Arterial Blood Glucose Arterial Blood Ionized Calcium Urine WBC (Auto) 03/13/20 03/14/20 03/14/20 23:33 05:24 08:07 WBC 16.8 H RBC 2.81 L Hgb 7.9 L Hct 23.9 L MCV MCH RDW 15.9 H Plt Count Lymph % (Auto) [place] % (Auto) Lymph # (Auto) [place] # (Auto) Seg Neutrophils % Seg Neuts % (Manual) 84.0 H Lymphocytes % (Manual) 10.0 L Monocytes % (Manual) Basophils % (Manual) Seg Neutrophils # Seg Neutrophils # Man 14.1 H Lymphocytes # (Manual) Monocytes # (Manual) Eosinophils # (Manual) Basophils # (Manual) PT INR D-Dimer ABG pH POC ABG pCO2 POC ABG pO2 ABG pO2 ABG HCO3 ABG O2 Saturation ABG Base Excess ABG Hemoglobin ABG Oxyhemoglobin ABG Potassium ABG Glucose Oxyhemoglobin Carboxyhemoglobin Sodium Potassium Chloride Carbon Dioxide BUN Creatinine Glucose POC Glucose 146 H 125 H Calcium Ferritin Total Bilirubin Alkaline Phosphatase Lactate Dehydrogenase Total Creatine Kinase CK-MB (CK-2) Rel Index Troponin T C-Reactive Protein Total Protein Albumin Prealbumin LDL Cholesterol Direct HDL Cholesterol Arterial Blood Glucose Arterial Blood Ionized Calcium Urine WBC (Auto) 03/14/20 03/14/20 03/14/20 08:07 12:21 18:26 WBC RBC Hgb Hct MCV MCH RDW Plt Count Lymph % (Auto) [place] % (Auto) Lymph # (Auto) [place] # (Auto) Seg Neutrophils % Seg Neuts % (Manual) Lymphocytes % (Manual) Monocytes % (Manual) Basophils % (Manual) Seg Neutrophils # Seg Neutrophils # Man Lymphocytes # (Manual) Monocytes # (Manual) Eosinophils # (Manual) Basophils # (Manual) PT INR D-Dimer ABG pH POC ABG pCO2 POC ABG pO2 ABG pO2 ABG HCO3 ABG O2 Saturation ABG Base Excess ABG Hemoglobin ABG Oxyhemoglobin ABG Potassium ABG Glucose Oxyhemoglobin Carboxyhemoglobin Sodium Potassium Chloride 97.0 L Carbon Dioxide 37 H BUN Creatinine < 0.2 L Glucose 129 H POC Glucose 109 H 142 H Calcium 8.3 L Ferritin Total Bilirubin Alkaline Phosphatase Lactate Dehydrogenase Total Creatine Kinase CK-MB (CK-2) Rel Index Troponin T C-Reactive Protein Total Protein Albumin Prealbumin LDL Cholesterol Direct HDL Cholesterol Arterial Blood Glucose Arterial Blood Ionized Calcium Urine WBC (Auto) 03/14/20 03/15/20 03/15/20 23:57 05:46 08:06 WBC 19.7 H RBC 3.29 L Hgb 9.1 L Hct 28.0 L MCV MCH RDW 15.9 H Plt Count Lymph % (Auto) [place] % (Auto) Lymph # (Auto) [place] # (Auto) Seg Neutrophils % Seg Neuts % (Manual) Lymphocytes % (Manual) Monocytes % (Manual) Basophils % (Manual) Seg Neutrophils # Seg Neutrophils # Man Lymphocytes # (Manual) Monocytes # (Manual) Eosinophils # (Manual) Basophils # (Manual) PT INR D-Dimer ABG pH POC ABG pCO2 POC ABG pO2 ABG pO2 ABG HCO3 ABG O2 Saturation ABG Base Excess ABG Hemoglobin ABG Oxyhemoglobin ABG Potassium ABG Glucose Oxyhemoglobin Carboxyhemoglobin Sodium Potassium Chloride Carbon Dioxide BUN Creatinine Glucose POC Glucose 157 H 118 H Calcium Ferritin Total Bilirubin Alkaline Phosphatase Lactate Dehydrogenase Total Creatine Kinase CK-MB (CK-2) Rel Index Troponin T C-Reactive Protein Total Protein Albumin Prealbumin LDL Cholesterol Direct HDL Cholesterol Arterial Blood Glucose Arterial Blood Ionized Calcium Urine WBC (Auto) 03/15/20 03/15/20 03/15/20 08:06 12:44 18:09 WBC RBC Hgb Hct MCV MCH RDW Plt Count Lymph % (Auto) [place] % (Auto) Lymph # (Auto) [place] # (Auto) Seg Neutrophils % Seg Neuts % (Manual) Lymphocytes % (Manual) Monocytes % (Manual) Basophils % (Manual) Seg Neutrophils # Seg Neutrophils # Man Lymphocytes # (Manual) Monocytes # (Manual) Eosinophils # (Manual) Basophils # (Manual) PT INR D-Dimer ABG pH POC ABG pCO2 POC ABG pO2 ABG pO2 ABG HCO3 ABG O2 Saturation ABG Base Excess ABG Hemoglobin ABG Oxyhemoglobin ABG Potassium ABG Glucose Oxyhemoglobin Carboxyhemoglobin Sodium 136 L Potassium Chloride 93.6 L Carbon Dioxide 37 H BUN Creatinine < 0.2 L Glucose 132 H POC Glucose 151 H 164 H Calcium Ferritin Total Bilirubin Alkaline Phosphatase Lactate Dehydrogenase Total Creatine Kinase CK-MB (CK-2) Rel Index Troponin T C-Reactive Protein Total Protein Albumin Prealbumin LDL Cholesterol Direct HDL Cholesterol Arterial Blood Glucose Arterial Blood Ionized Calcium Urine WBC (Auto) 03/15/20 03/16/20 03/16/20 23:26 05:39 11:58 WBC RBC Hgb Hct MCV MCH RDW Plt Count Lymph % (Auto) [place] % (Auto) Lymph # (Auto) [place] # (Auto) Seg Neutrophils % Seg Neuts % (Manual) Lymphocytes % (Manual) Monocytes % (Manual) Basophils % (Manual) Seg Neutrophils # Seg Neutrophils # Man Lymphocytes # (Manual) Monocytes # (Manual) Eosinophils # (Manual) Basophils # (Manual) PT INR D-Dimer ABG pH POC ABG pCO2 POC ABG pO2 ABG pO2 ABG HCO3 ABG O2 Saturation ABG Base Excess ABG Hemoglobin ABG Oxyhemoglobin ABG Potassium ABG Glucose Oxyhemoglobin Carboxyhemoglobin Sodium Potassium Chloride Carbon Dioxide BUN Creatinine Glucose POC Glucose 136 H 116 H 109 H Calcium Ferritin Total Bilirubin Alkaline Phosphatase Lactate Dehydrogenase Total Creatine Kinase CK-MB (CK-2) Rel Index Troponin T C-Reactive Protein Total Protein Albumin Prealbumin LDL Cholesterol Direct HDL Cholesterol Arterial Blood Glucose Arterial Blood Ionized Calcium Urine WBC (Auto) 03/16/20 03/17/20 03/17/20 23:56 04:40 04:40 WBC 18.0 H RBC 3.33 L Hgb 9.5 L Hct 28.8 L MCV MCH RDW 16.4 H Plt Count 499 H Lymph % (Auto) [place] % (Auto) Lymph # (Auto) [place] # (Auto) Seg Neutrophils % Seg Neuts % (Manual) 82.0 H Lymphocytes % (Manual) 8.0 L Monocytes % (Manual) Basophils % (Manual) Seg Neutrophils # Seg Neutrophils # Man 14.8 H Lymphocytes # (Manual) Monocytes # (Manual) 1.3 H Eosinophils # (Manual) Basophils # (Manual) 0.2 H PT INR D-Dimer ABG pH POC ABG pCO2 POC ABG pO2 ABG pO2 ABG HCO3 ABG O2 Saturation ABG Base Excess ABG Hemoglobin ABG Oxyhemoglobin ABG Potassium ABG Glucose Oxyhemoglobin Carboxyhemoglobin Sodium Potassium Chloride 97.7 L Carbon Dioxide 32 H BUN Creatinine < 0.2 L Glucose 114 H POC Glucose 131 H Calcium Ferritin Total Bilirubin Alkaline Phosphatase Lactate Dehydrogenase Total Creatine Kinase CK-MB (CK-2) Rel Index Troponin T C-Reactive Protein Total Protein Albumin Prealbumin LDL Cholesterol Direct HDL Cholesterol Arterial Blood Glucose Arterial Blood Ionized Calcium Urine WBC (Auto) 03/18/20 03/18/20 03/18/20 00:21 05:21 11:55 WBC RBC Hgb Hct MCV MCH RDW Plt Count Lymph % (Auto) [place] % (Auto) Lymph # (Auto) [place] # (Auto) Seg Neutrophils % Seg Neuts % (Manual) Lymphocytes % (Manual) Monocytes % (Manual) Basophils % (Manual) Seg Neutrophils # Seg Neutrophils # Man Lymphocytes # (Manual) Monocytes # (Manual) Eosinophils # (Manual) Basophils # (Manual) PT INR D-Dimer ABG pH POC ABG pCO2 POC ABG pO2 ABG pO2 ABG HCO3 ABG O2 Saturation ABG Base Excess ABG Hemoglobin ABG Oxyhemoglobin ABG Potassium ABG Glucose Oxyhemoglobin Carboxyhemoglobin Sodium Potassium Chloride Carbon Dioxide BUN Creatinine Glucose POC Glucose 124 H 138 H 119 H Calcium Ferritin Total Bilirubin Alkaline Phosphatase Lactate Dehydrogenase Total Creatine Kinase CK-MB (CK-2) Rel Index Troponin T C-Reactive Protein Total Protein Albumin Prealbumin LDL Cholesterol Direct HDL Cholesterol Arterial Blood Glucose Arterial Blood Ionized Calcium Urine WBC (Auto) 03/18/20 03/18/20 03/19/20 17:03 23:58 05:24 WBC RBC Hgb Hct MCV MCH RDW Plt Count Lymph % (Auto) [place] % (Auto) Lymph # (Auto) [place] # (Auto) Seg Neutrophils % Seg Neuts % (Manual) Lymphocytes % (Manual) Monocytes % (Manual) Basophils % (Manual) Seg Neutrophils # Seg Neutrophils # Man Lymphocytes # (Manual) Monocytes # (Manual) Eosinophils # (Manual) Basophils # (Manual) PT INR D-Dimer ABG pH POC ABG pCO2 POC ABG pO2 ABG pO2 ABG HCO3 ABG O2 Saturation ABG Base Excess ABG Hemoglobin ABG Oxyhemoglobin ABG Potassium ABG Glucose Oxyhemoglobin Carboxyhemoglobin Sodium Potassium Chloride Carbon Dioxide BUN Creatinine Glucose POC Glucose 128 H 128 H 115 H Calcium Ferritin Total Bilirubin Alkaline Phosphatase Lactate Dehydrogenase Total Creatine Kinase CK-MB (CK-2) Rel Index Troponin T C-Reactive Protein Total Protein Albumin Prealbumin LDL Cholesterol Direct HDL Cholesterol Arterial Blood Glucose Arterial Blood Ionized Calcium Urine WBC (Auto) 03/19/20 03/19/20 03/19/20 08:05 08:05 11:56 WBC 16.8 H RBC 3.36 L Hgb 9.4 L Hct 28.8 L MCV MCH RDW 17.4 H Plt Count 567 H Lymph % (Auto) 7.8 L [place] % (Auto) Lymph # (Auto) [place] # (Auto) 1.2 H Seg Neutrophils % 83.5 H Seg Neuts % (Manual) Lymphocytes % (Manual) Monocytes % (Manual) Basophils % (Manual) Seg Neutrophils # 14.1 H Seg Neutrophils # Man Lymphocytes # (Manual) Monocytes # (Manual) Eosinophils # (Manual) Basophils # (Manual) PT INR D-Dimer ABG pH POC ABG pCO2 POC ABG pO2 ABG pO2 ABG HCO3 ABG O2 Saturation ABG Base Excess ABG Hemoglobin ABG Oxyhemoglobin ABG Potassium ABG Glucose Oxyhemoglobin Carboxyhemoglobin Sodium Potassium Chloride Carbon Dioxide 36 H BUN Creatinine < 0.2 L Glucose 135 H POC Glucose 128 H Calcium Ferritin Total Bilirubin Alkaline Phosphatase Lactate Dehydrogenase Total Creatine Kinase CK-MB (CK-2) Rel Index Troponin T C-Reactive Protein Total Protein Albumin Prealbumin LDL Cholesterol Direct HDL Cholesterol Arterial Blood Glucose Arterial Blood Ionized Calcium Urine WBC (Auto) 03/19/20 03/20/20 03/20/20 23:59 05:12 16:52 WBC RBC Hgb Hct MCV MCH RDW Plt Count Lymph % (Auto) [place] % (Auto) Lymph # (Auto) [place] # (Auto) Seg Neutrophils % Seg Neuts % (Manual) Lymphocytes % (Manual) Monocytes % (Manual) Basophils % (Manual) Seg Neutrophils # Seg Neutrophils # Man Lymphocytes # (Manual) Monocytes # (Manual) Eosinophils # (Manual) Basophils # (Manual) PT INR D-Dimer ABG pH POC ABG pCO2 POC ABG pO2 ABG pO2 ABG HCO3 ABG O2 Saturation ABG Base Excess ABG Hemoglobin ABG Oxyhemoglobin ABG Potassium ABG Glucose Oxyhemoglobin Carboxyhemoglobin Sodium Potassium Chloride Carbon Dioxide BUN Creatinine Glucose POC Glucose 120 H 131 H 124 H Calcium Ferritin Total Bilirubin Alkaline Phosphatase Lactate Dehydrogenase Total Creatine Kinase CK-MB (CK-2) Rel Index Troponin T C-Reactive Protein Total Protein Albumin Prealbumin LDL Cholesterol Direct HDL Cholesterol Arterial Blood Glucose Arterial Blood Ionized Calcium Urine WBC (Auto) 03/20/20 03/21/20 03/21/20 23:35 04:50 07:35 WBC 15.2 H RBC 3.39 L Hgb 9.4 L Hct 29.4 L MCV MCH RDW 17.6 H Plt Count 518 H Lymph % (Auto) [place] % (Auto) Lymph # (Auto) [place] # (Auto) Seg Neutrophils % Seg Neuts % (Manual) 83.0 H Lymphocytes % (Manual) 10.0 L Monocytes % (Manual) Basophils % (Manual) 2.0 H Seg Neutrophils # Seg Neutrophils # Man 12.6 H Lymphocytes # (Manual) Monocytes # (Manual) Eosinophils # (Manual) Basophils # (Manual) 0.3 H PT INR D-Dimer ABG pH POC ABG pCO2 POC ABG pO2 ABG pO2 ABG HCO3 ABG O2 Saturation ABG Base Excess ABG Hemoglobin ABG Oxyhemoglobin ABG Potassium ABG Glucose Oxyhemoglobin Carboxyhemoglobin Sodium Potassium Chloride Carbon Dioxide BUN Creatinine Glucose POC Glucose 125 H 127 H Calcium Ferritin Total Bilirubin Alkaline Phosphatase Lactate Dehydrogenase Total Creatine Kinase CK-MB (CK-2) Rel Index Troponin T C-Reactive Protein Total Protein Albumin Prealbumin LDL Cholesterol Direct HDL Cholesterol Arterial Blood Glucose Arterial Blood Ionized Calcium Urine WBC (Auto) 03/21/20 03/21/20 03/21/20 07:35 11:45 17:22 WBC RBC Hgb Hct MCV MCH RDW Plt Count Lymph % (Auto) [place] % (Auto) Lymph # (Auto) [place] # (Auto) Seg Neutrophils % Seg Neuts % (Manual) Lymphocytes % (Manual) Monocytes % (Manual) Basophils % (Manual) Seg Neutrophils # Seg Neutrophils # Man Lymphocytes # (Manual) Monocytes # (Manual) Eosinophils # (Manual) Basophils # (Manual) PT INR D-Dimer ABG pH POC ABG pCO2 POC ABG pO2 ABG pO2 ABG HCO3 ABG O2 Saturation ABG Base Excess ABG Hemoglobin ABG Oxyhemoglobin ABG Potassium ABG Glucose Oxyhemoglobin Carboxyhemoglobin Sodium 136 L Potassium Chloride 97.7 L Carbon Dioxide 32 H BUN Creatinine < 0.2 L Glucose 103 H POC Glucose 126 H 120 H Calcium Ferritin Total Bilirubin Alkaline Phosphatase Lactate Dehydrogenase Total Creatine Kinase CK-MB (CK-2) Rel Index Troponin T C-Reactive Protein Total Protein Albumin Prealbumin LDL Cholesterol Direct HDL Cholesterol Arterial Blood Glucose Arterial Blood Ionized Calcium Urine WBC (Auto) 03/22/20 03/22/20 03/22/20 05:09 06:34 06:34 WBC 17.5 H RBC 3.52 L Hgb 10.0 L Hct 30.7 L MCV MCH RDW 17.5 H Plt Count 499 H Lymph % (Auto) [place] % (Auto) Lymph # (Auto) [place] # (Auto) Seg Neutrophils % Seg Neuts % (Manual) 80.0 H Lymphocytes % (Manual) 10.0 L Monocytes % (Manual) Basophils % (Manual) Seg Neutrophils # Seg Neutrophils # Man 14.0 H Lymphocytes # (Manual) Monocytes # (Manual) Eosinophils # (Manual) Basophils # (Manual) PT INR D-Dimer ABG pH POC ABG pCO2 POC ABG pO2 ABG pO2 ABG HCO3 ABG O2 Saturation ABG Base Excess ABG Hemoglobin ABG Oxyhemoglobin ABG Potassium ABG Glucose Oxyhemoglobin Carboxyhemoglobin Sodium Potassium Chloride 96.6 L Carbon Dioxide 38 H BUN Creatinine < 0.2 L Glucose 139 H POC Glucose 125 H Calcium Ferritin Total Bilirubin Alkaline Phosphatase Lactate Dehydrogenase Total Creatine Kinase CK-MB (CK-2) Rel Index Troponin T C-Reactive Protein Total Protein Albumin Prealbumin LDL Cholesterol Direct HDL Cholesterol Arterial Blood Glucose Arterial Blood Ionized Calcium Urine WBC (Auto) 03/22/20 03/22/20 03/22/20 11:45 18:00 23:32 WBC RBC Hgb Hct MCV MCH RDW Plt Count Lymph % (Auto) [place] % (Auto) Lymph # (Auto) [place] # (Auto) Seg Neutrophils % Seg Neuts % (Manual) Lymphocytes % (Manual) Monocytes % (Manual) Basophils % (Manual) Seg Neutrophils # Seg Neutrophils # Man Lymphocytes # (Manual) Monocytes # (Manual) Eosinophils # (Manual) Basophils # (Manual) PT INR D-Dimer ABG pH POC ABG pCO2 POC ABG pO2 ABG pO2 ABG HCO3 ABG O2 Saturation ABG Base Excess ABG Hemoglobin ABG Oxyhemoglobin ABG Potassium ABG Glucose Oxyhemoglobin Carboxyhemoglobin Sodium Potassium Chloride Carbon Dioxide BUN Creatinine Glucose POC Glucose 135 H 133 H Calcium Ferritin Total Bilirubin Alkaline Phosphatase Lactate Dehydrogenase Total Creatine Kinase CK-MB (CK-2) Rel Index Troponin T 0.113 H* C-Reactive Protein Total Protein Albumin Prealbumin LDL Cholesterol Direct HDL Cholesterol Arterial Blood Glucose Arterial Blood Ionized Calcium Urine WBC (Auto) 03/23/20 03/23/20 03/23/20 01:47 06:21 07:57 WBC RBC Hgb Hct MCV MCH RDW Plt Count Lymph % (Auto) [place] % (Auto) Lymph # (Auto) [place] # (Auto) Seg Neutrophils % Seg Neuts % (Manual) Lymphocytes % (Manual) Monocytes % (Manual) Basophils % (Manual) Seg Neutrophils # Seg Neutrophils # Man Lymphocytes # (Manual) Monocytes # (Manual) Eosinophils # (Manual) Basophils # (Manual) PT INR D-Dimer ABG pH POC ABG pCO2 POC ABG pO2 ABG pO2 ABG HCO3 ABG O2 Saturation ABG Base Excess ABG Hemoglobin ABG Oxyhemoglobin ABG Potassium ABG Glucose Oxyhemoglobin Carboxyhemoglobin Sodium Potassium Chloride Carbon Dioxide BUN Creatinine Glucose POC Glucose 130 H Calcium Ferritin Total Bilirubin Alkaline Phosphatase Lactate Dehydrogenase Total Creatine Kinase CK-MB (CK-2) Rel Index Troponin T 0.143 H* D 0.105 H* D C-Reactive Protein Total Protein Albumin Prealbumin LDL Cholesterol Direct HDL Cholesterol Arterial Blood Glucose Arterial Blood Ionized Calcium Urine WBC (Auto) 03/23/20 03/24/20 03/24/20 12:02 05:33 07:15 WBC 18.0 H RBC Hgb 11.0 L Hct 34.0 L MCV MCH RDW 17.4 H Plt Count 520 H Lymph % (Auto) [place] % (Auto) Lymph # (Auto) [place] # (Auto) Seg Neutrophils % Seg Neuts % (Manual) 88.0 H Lymphocytes % (Manual) 7.0 L Monocytes % (Manual) Basophils % (Manual) Seg Neutrophils # Seg Neutrophils # Man 15.8 H Lymphocytes # (Manual) Monocytes # (Manual) Eosinophils # (Manual) Basophils # (Manual) PT INR D-Dimer ABG pH POC ABG pCO2 POC ABG pO2 ABG pO2 ABG HCO3 ABG O2 Saturation ABG Base Excess ABG Hemoglobin ABG Oxyhemoglobin ABG Potassium ABG Glucose Oxyhemoglobin Carboxyhemoglobin Sodium Potassium Chloride Carbon Dioxide BUN Creatinine Glucose POC Glucose 137 H 112 H Calcium Ferritin Total Bilirubin Alkaline Phosphatase Lactate Dehydrogenase Total Creatine Kinase CK-MB (CK-2) Rel Index Troponin T C-Reactive Protein Total Protein Albumin Prealbumin LDL Cholesterol Direct HDL Cholesterol Arterial Blood Glucose Arterial Blood Ionized Calcium Urine WBC (Auto) 03/24/20 03/24/20 03/24/20 07:15 11:22 23:30 WBC RBC Hgb Hct MCV MCH RDW Plt Count Lymph % (Auto) [place] % (Auto) Lymph # (Auto) [place] # (Auto) Seg Neutrophils % Seg Neuts % (Manual) Lymphocytes % (Manual) Monocytes % (Manual) Basophils % (Manual) Seg Neutrophils # Seg Neutrophils # Man Lymphocytes # (Manual) Monocytes # (Manual) Eosinophils # (Manual) Basophils # (Manual) PT INR D-Dimer ABG pH POC ABG pCO2 POC ABG pO2 ABG pO2 ABG HCO3 ABG O2 Saturation ABG Base Excess ABG Hemoglobin ABG Oxyhemoglobin ABG Potassium ABG Glucose Oxyhemoglobin Carboxyhemoglobin Sodium Potassium Chloride 96.6 L Carbon Dioxide 38 H BUN Creatinine < 0.2 L Glucose 141 H POC Glucose 130 H 120 H Calcium Ferritin Total Bilirubin Alkaline Phosphatase Lactate Dehydrogenase Total Creatine Kinase CK-MB (CK-2) Rel Index Troponin T C-Reactive Protein Total Protein Albumin Prealbumin LDL Cholesterol Direct HDL Cholesterol Arterial Blood Glucose Arterial Blood Ionized Calcium Urine WBC (Auto) 03/25/20 03/25/20 03/25/20 05:48 17:53 23:18 WBC RBC Hgb Hct MCV MCH RDW Plt Count Lymph % (Auto) [place] % (Auto) Lymph # (Auto) [place] # (Auto) Seg Neutrophils % Seg Neuts % (Manual) Lymphocytes % (Manual) Monocytes % (Manual) Basophils % (Manual) Seg Neutrophils # Seg Neutrophils # Man Lymphocytes # (Manual) Monocytes # (Manual) Eosinophils # (Manual) Basophils # (Manual) PT INR D-Dimer ABG pH POC ABG pCO2 POC ABG pO2 ABG pO2 ABG HCO3 ABG O2 Saturation ABG Base Excess ABG Hemoglobin ABG Oxyhemoglobin ABG Potassium ABG Glucose Oxyhemoglobin Carboxyhemoglobin Sodium Potassium Chloride Carbon Dioxide BUN Creatinine Glucose POC Glucose 124 H 109 H 131 H Calcium Ferritin Total Bilirubin Alkaline Phosphatase Lactate Dehydrogenase Total Creatine Kinase CK-MB (CK-2) Rel Index Troponin T C-Reactive Protein Total Protein Albumin Prealbumin LDL Cholesterol Direct HDL Cholesterol Arterial Blood Glucose Arterial Blood Ionized Calcium Urine WBC (Auto) 03/26/20 03/26/20 03/26/20 05:21 08:49 08:49 WBC 19.7 H RBC Hgb 10.7 L Hct 33.5 L MCV MCH 27 L RDW 17.1 H Plt Count 480 H Lymph % (Auto) 5.7 L [place] % (Auto) Lymph # (Auto) 1.1 L [place] # (Auto) 1.2 H Seg Neutrophils % 87.7 H Seg Neuts % (Manual) Lymphocytes % (Manual) Monocytes % (Manual) Basophils % (Manual) Seg Neutrophils # 17.2 H Seg Neutrophils # Man Lymphocytes # (Manual) Monocytes # (Manual) Eosinophils # (Manual) Basophils # (Manual) PT INR D-Dimer ABG pH POC ABG pCO2 POC ABG pO2 ABG pO2 ABG HCO3 ABG O2 Saturation ABG Base Excess ABG Hemoglobin ABG Oxyhemoglobin ABG Potassium ABG Glucose Oxyhemoglobin Carboxyhemoglobin Sodium Potassium Chloride 97.2 L Carbon Dioxide 36 H BUN Creatinine < 0.2 L Glucose 127 H POC Glucose 116 H Calcium Ferritin Total Bilirubin Alkaline Phosphatase Lactate Dehydrogenase Total Creatine Kinase CK-MB (CK-2) Rel Index Troponin T C-Reactive Protein Total Protein Albumin Prealbumin LDL Cholesterol Direct HDL Cholesterol Arterial Blood Glucose Arterial Blood Ionized Calcium Urine WBC (Auto) 03/26/20 03/26/20 03/26/20 11:38 18:44 23:06 WBC RBC Hgb Hct MCV MCH RDW Plt Count Lymph % (Auto) [place] % (Auto) Lymph # (Auto) [place] # (Auto) Seg Neutrophils % Seg Neuts % (Manual) Lymphocytes % (Manual) Monocytes % (Manual) Basophils % (Manual) Seg Neutrophils # Seg Neutrophils # Man Lymphocytes # (Manual) Monocytes # (Manual) Eosinophils # (Manual) Basophils # (Manual) PT INR D-Dimer ABG pH POC ABG pCO2 POC ABG pO2 ABG pO2 ABG HCO3 ABG O2 Saturation ABG Base Excess ABG Hemoglobin ABG Oxyhemoglobin ABG Potassium ABG Glucose Oxyhemoglobin Carboxyhemoglobin Sodium Potassium Chloride Carbon Dioxide BUN Creatinine Glucose POC Glucose 120 H 111 H 134 H Calcium Ferritin Total Bilirubin Alkaline Phosphatase Lactate Dehydrogenase Total Creatine Kinase CK-MB (CK-2) Rel Index Troponin T C-Reactive Protein Total Protein Albumin Prealbumin LDL Cholesterol Direct HDL Cholesterol Arterial Blood Glucose Arterial Blood Ionized Calcium Urine WBC (Auto) 03/27/20 03/27/20 03/27/20 05:41 05:59 05:59 WBC 18.6 H RBC Hgb 10.1 L Hct 31.4 L MCV MCH RDW 17.2 H Plt Count Lymph % (Auto) 8.0 L [place] % (Auto) Lymph # (Auto) [place] # (Auto) 1.2 H Seg Neutrophils % 84.7 H Seg Neuts % (Manual) Lymphocytes % (Manual) Monocytes % (Manual) Basophils % (Manual) Seg Neutrophils # 15.8 H Seg Neutrophils # Man Lymphocytes # (Manual) Monocytes # (Manual) Eosinophils # (Manual) Basophils # (Manual) PT INR D-Dimer ABG pH POC ABG pCO2 POC ABG pO2 ABG pO2 ABG HCO3 ABG O2 Saturation ABG Base Excess ABG Hemoglobin ABG Oxyhemoglobin ABG Potassium ABG Glucose Oxyhemoglobin Carboxyhemoglobin Sodium Potassium Chloride Carbon Dioxide 34 H BUN Creatinine < 0.2 L Glucose 127 H POC Glucose 129 H Calcium Ferritin Total Bilirubin Alkaline Phosphatase Lactate Dehydrogenase Total Creatine Kinase CK-MB (CK-2) Rel Index Troponin T C-Reactive Protein Total Protein Albumin Prealbumin LDL Cholesterol Direct HDL Cholesterol Arterial Blood Glucose Arterial Blood Ionized Calcium Urine WBC (Auto) 03/27/20 03/27/20 03/28/20 17:28 23:22 05:23 WBC RBC Hgb Hct MCV MCH RDW Plt Count Lymph % (Auto) [place] % (Auto) Lymph # (Auto) [place] # (Auto) Seg Neutrophils % Seg Neuts % (Manual) Lymphocytes % (Manual) Monocytes % (Manual) Basophils % (Manual) Seg Neutrophils # Seg Neutrophils # Man Lymphocytes # (Manual) Monocytes # (Manual) Eosinophils # (Manual) Basophils # (Manual) PT INR D-Dimer ABG pH POC ABG pCO2 POC ABG pO2 ABG pO2 ABG HCO3 ABG O2 Saturation ABG Base Excess ABG Hemoglobin ABG Oxyhemoglobin ABG Potassium ABG Glucose Oxyhemoglobin Carboxyhemoglobin Sodium Potassium Chloride Carbon Dioxide BUN Creatinine Glucose POC Glucose 108 H 119 H 129 H Calcium Ferritin Total Bilirubin Alkaline Phosphatase Lactate Dehydrogenase Total Creatine Kinase CK-MB (CK-2) Rel Index Troponin T C-Reactive Protein Total Protein Albumin Prealbumin LDL Cholesterol Direct HDL Cholesterol Arterial Blood Glucose Arterial Blood Ionized Calcium Urine WBC (Auto) 03/28/20 03/28/20 03/28/20 10:28 10:28 11:36 WBC 23.6 H RBC 3.62 L Hgb 10.0 L Hct 30.8 L MCV MCH RDW 16.4 H Plt Count Lymph % (Auto) [place] % (Auto) Lymph # (Auto) [place] # (Auto) Seg Neutrophils % Seg Neuts % (Manual) 89.0 H Lymphocytes % (Manual) 5.0 L Monocytes % (Manual) Basophils % (Manual) Seg Neutrophils # Seg Neutrophils # Man 21.0 H Lymphocytes # (Manual) Monocytes # (Manual) 1.2 H Eosinophils # (Manual) Basophils # (Manual) 0.2 H PT INR D-Dimer ABG pH POC ABG pCO2 POC ABG pO2 ABG pO2 ABG HCO3 ABG O2 Saturation ABG Base Excess ABG Hemoglobin ABG Oxyhemoglobin ABG Potassium ABG Glucose Oxyhemoglobin Carboxyhemoglobin Sodium 134 L Potassium Chloride 94.2 L Carbon Dioxide 35 H BUN Creatinine < 0.2 L Glucose 134 H POC Glucose Calcium Ferritin Total Bilirubin Alkaline Phosphatase Lactate Dehydrogenase Total Creatine Kinase CK-MB (CK-2) Rel Index Troponin T C-Reactive Protein Total Protein Albumin Prealbumin LDL Cholesterol Direct HDL Cholesterol Arterial Blood Glucose Arterial Blood Ionized Calcium Urine WBC (Auto) 39.0 H 03/28/20 03/28/20 03/28/20 11:51 17:08 17:17 WBC RBC Hgb Hct MCV MCH RDW Plt Count Lymph % (Auto) [place] % (Auto) Lymph # (Auto) [place] # (Auto) Seg Neutrophils % Seg Neuts % (Manual) Lymphocytes % (Manual) Monocytes % (Manual) Basophils % (Manual) Seg Neutrophils # Seg Neutrophils # Man Lymphocytes # (Manual) Monocytes # (Manual) Eosinophils # (Manual) Basophils # (Manual) PT INR D-Dimer ABG pH POC ABG pCO2 POC ABG pO2 ABG pO2 ABG HCO3 ABG O2 Saturation ABG Base Excess ABG Hemoglobin ABG Oxyhemoglobin ABG Potassium ABG Glucose Oxyhemoglobin Carboxyhemoglobin Sodium Potassium Chloride Carbon Dioxide BUN Creatinine Glucose POC Glucose 123 H 112 H Calcium Ferritin Total Bilirubin Alkaline Phosphatase Lactate Dehydrogenase Total Creatine Kinase 47 L CK-MB (CK-2) Rel Index 4.6 H Troponin T 0.090 H C-Reactive Protein Total Protein Albumin Prealbumin LDL Cholesterol Direct HDL Cholesterol Arterial Blood Glucose Arterial Blood Ionized Calcium Urine WBC (Auto) 03/28/20 03/29/20 03/29/20 23:22 05:22 10:58 WBC RBC Hgb Hct MCV MCH RDW Plt Count Lymph % (Auto) [place] % (Auto) Lymph # (Auto) [place] # (Auto) Seg Neutrophils % Seg Neuts % (Manual) Lymphocytes % (Manual) Monocytes % (Manual) Basophils % (Manual) Seg Neutrophils # Seg Neutrophils # Man Lymphocytes # (Manual) Monocytes # (Manual) Eosinophils # (Manual) Basophils # (Manual) PT INR D-Dimer ABG pH POC ABG pCO2 POC ABG pO2 ABG pO2 ABG HCO3 ABG O2 Saturation ABG Base Excess ABG Hemoglobin ABG Oxyhemoglobin ABG Potassium ABG Glucose Oxyhemoglobin Carboxyhemoglobin Sodium Potassium Chloride Carbon Dioxide BUN Creatinine Glucose POC Glucose 122 H 116 H 133 H Calcium Ferritin Total Bilirubin Alkaline Phosphatase Lactate Dehydrogenase Total Creatine Kinase CK-MB (CK-2) Rel Index Troponin T C-Reactive Protein Total Protein Albumin Prealbumin LDL Cholesterol Direct HDL Cholesterol Arterial Blood Glucose Arterial Blood Ionized Calcium Urine WBC (Auto) 03/29/20 03/29/20 03/30/20 17:18 23:14 04:57 WBC RBC Hgb Hct MCV MCH RDW Plt Count Lymph % (Auto) [place] % (Auto) Lymph # (Auto) [place] # (Auto) Seg Neutrophils % Seg Neuts % (Manual) Lymphocytes % (Manual) Monocytes % (Manual) Basophils % (Manual) Seg Neutrophils # Seg Neutrophils # Man Lymphocytes # (Manual) Monocytes # (Manual) Eosinophils # (Manual) Basophils # (Manual) PT INR D-Dimer ABG pH POC ABG pCO2 POC ABG pO2 ABG pO2 ABG HCO3 ABG O2 Saturation ABG Base Excess ABG Hemoglobin ABG Oxyhemoglobin ABG Potassium ABG Glucose Oxyhemoglobin Carboxyhemoglobin Sodium Potassium Chloride Carbon Dioxide BUN Creatinine Glucose POC Glucose 111 H 114 H 130 H Calcium Ferritin Total Bilirubin Alkaline Phosphatase Lactate Dehydrogenase Total Creatine Kinase CK-MB (CK-2) Rel Index Troponin T C-Reactive Protein Total Protein Albumin Prealbumin LDL Cholesterol Direct HDL Cholesterol Arterial Blood Glucose Arterial Blood Ionized Calcium Urine WBC (Auto) 03/30/20 03/30/20 03/30/20 11:38 14:47 14:47 WBC 19.9 H RBC Hgb 10.9 L Hct 34.4 L MCV MCH 27 L RDW 16.5 H Plt Count 441 H Lymph % (Auto) 6.4 L [place] % (Auto) Lymph # (Auto) [place] # (Auto) 1.4 H Seg Neutrophils % 86.1 H Seg Neuts % (Manual) Lymphocytes % (Manual) Monocytes % (Manual) Basophils % (Manual) Seg Neutrophils # 17.1 H Seg Neutrophils # Man Lymphocytes # (Manual) Monocytes # (Manual) Eosinophils # (Manual) Basophils # (Manual) PT INR D-Dimer ABG pH POC ABG pCO2 POC ABG pO2 ABG pO2 ABG HCO3 ABG O2 Saturation ABG Base Excess ABG Hemoglobin ABG Oxyhemoglobin ABG Potassium ABG Glucose Oxyhemoglobin Carboxyhemoglobin Sodium 133 L Potassium Chloride 94.6 L Carbon Dioxide 33 H BUN Creatinine < 0.2 L Glucose 194 H POC Glucose 139 H Calcium Ferritin Total Bilirubin Alkaline Phosphatase Lactate Dehydrogenase Total Creatine Kinase CK-MB (CK-2) Rel Index Troponin T C-Reactive Protein Total Protein Albumin 2.8 L Prealbumin LDL Cholesterol Direct HDL Cholesterol Arterial Blood Glucose Arterial Blood Ionized Calcium Urine WBC (Auto) 03/30/20 03/31/20 03/31/20 17:07 05:02 15:21 WBC RBC Hgb Hct MCV MCH RDW Plt Count Lymph % (Auto) [place] % (Auto) Lymph # (Auto) [place] # (Auto) Seg Neutrophils % Seg Neuts % (Manual) Lymphocytes % (Manual) Monocytes % (Manual) Basophils % (Manual) Seg Neutrophils # Seg Neutrophils # Man Lymphocytes # (Manual) Monocytes # (Manual) Eosinophils # (Manual) Basophils # (Manual) PT INR D-Dimer ABG pH POC ABG pCO2 POC ABG pO2 ABG pO2 ABG HCO3 ABG O2 Saturation ABG Base Excess ABG Hemoglobin ABG Oxyhemoglobin ABG Potassium ABG Glucose Oxyhemoglobin Carboxyhemoglobin Sodium Potassium Chloride Carbon Dioxide BUN Creatinine Glucose POC Glucose 163 H 108 H 110 H Calcium Ferritin Total Bilirubin Alkaline Phosphatase Lactate Dehydrogenase Total Creatine Kinase CK-MB (CK-2) Rel Index Troponin T C-Reactive Protein Total Protein Albumin Prealbumin LDL Cholesterol Direct HDL Cholesterol Arterial Blood Glucose Arterial Blood Ionized Calcium Urine WBC (Auto) 03/31/20 03/31/20 04/01/20 17:58 23:19 05:09 WBC RBC Hgb Hct MCV MCH RDW Plt Count Lymph % (Auto) [place] % (Auto) Lymph # (Auto) [place] # (Auto) Seg Neutrophils % Seg Neuts % (Manual) Lymphocytes % (Manual) Monocytes % (Manual) Basophils % (Manual) Seg Neutrophils # Seg Neutrophils # Man Lymphocytes # (Manual) Monocytes # (Manual) Eosinophils # (Manual) Basophils # (Manual) PT INR D-Dimer ABG pH POC ABG pCO2 POC ABG pO2 ABG pO2 ABG HCO3 ABG O2 Saturation ABG Base Excess ABG Hemoglobin ABG Oxyhemoglobin ABG Potassium ABG Glucose Oxyhemoglobin Carboxyhemoglobin Sodium Potassium Chloride Carbon Dioxide BUN Creatinine Glucose POC Glucose 110 H 131 H 124 H Calcium Ferritin Total Bilirubin Alkaline Phosphatase Lactate Dehydrogenase Total Creatine Kinase CK-MB (CK-2) Rel Index Troponin T C-Reactive Protein Total Protein Albumin Prealbumin LDL Cholesterol Direct HDL Cholesterol Arterial Blood Glucose Arterial Blood Ionized Calcium Urine WBC (Auto) 04/01/20 04/01/20 04/01/20 11:50 17:01 23:21 WBC RBC Hgb Hct MCV MCH RDW Plt Count Lymph % (Auto) [place] % (Auto) Lymph # (Auto) [place] # (Auto) Seg Neutrophils % Seg Neuts % (Manual) Lymphocytes % (Manual) Monocytes % (Manual) Basophils % (Manual) Seg Neutrophils # Seg Neutrophils # Man Lymphocytes # (Manual) Monocytes # (Manual) Eosinophils # (Manual) Basophils # (Manual) PT INR D-Dimer ABG pH POC ABG pCO2 POC ABG pO2 ABG pO2 ABG HCO3 ABG O2 Saturation ABG Base Excess ABG Hemoglobin ABG Oxyhemoglobin ABG Potassium ABG Glucose Oxyhemoglobin Carboxyhemoglobin Sodium Potassium Chloride Carbon Dioxide BUN Creatinine Glucose POC Glucose 136 H 115 H 124 H Calcium Ferritin Total Bilirubin Alkaline Phosphatase Lactate Dehydrogenase Total Creatine Kinase CK-MB (CK-2) Rel Index Troponin T C-Reactive Protein Total Protein Albumin Prealbumin LDL Cholesterol Direct HDL Cholesterol Arterial Blood Glucose Arterial Blood Ionized Calcium Urine WBC (Auto) 04/02/20 04/02/20 04/02/20 05:27 11:58 17:58 WBC RBC Hgb Hct MCV MCH RDW Plt Count Lymph % (Auto) [place] % (Auto) Lymph # (Auto) [place] # (Auto) Seg Neutrophils % Seg Neuts % (Manual) Lymphocytes % (Manual) Monocytes % (Manual) Basophils % (Manual) Seg Neutrophils # Seg Neutrophils # Man Lymphocytes # (Manual) Monocytes # (Manual) Eosinophils # (Manual) Basophils # (Manual) PT INR D-Dimer ABG pH POC ABG pCO2 POC ABG pO2 ABG pO2 ABG HCO3 ABG O2 Saturation ABG Base Excess ABG Hemoglobin ABG Oxyhemoglobin ABG Potassium ABG Glucose Oxyhemoglobin Carboxyhemoglobin Sodium Potassium Chloride Carbon Dioxide BUN Creatinine Glucose POC Glucose 117 H 133 H 122 H Calcium Ferritin Total Bilirubin Alkaline Phosphatase Lactate Dehydrogenase Total Creatine Kinase CK-MB (CK-2) Rel Index Troponin T C-Reactive Protein Total Protein Albumin Prealbumin LDL Cholesterol Direct HDL Cholesterol Arterial Blood Glucose Arterial Blood Ionized Calcium Urine WBC (Auto) 04/02/20 04/03/20 04/03/20 23:12 05:11 11:11 WBC RBC Hgb Hct MCV MCH RDW Plt Count Lymph % (Auto) [place] % (Auto) Lymph # (Auto) [place] # (Auto) Seg Neutrophils % Seg Neuts % (Manual) Lymphocytes % (Manual) Monocytes % (Manual) Basophils % (Manual) Seg Neutrophils # Seg Neutrophils # Man Lymphocytes # (Manual) Monocytes # (Manual) Eosinophils # (Manual) Basophils # (Manual) PT INR D-Dimer ABG pH POC ABG pCO2 POC ABG pO2 ABG pO2 ABG HCO3 ABG O2 Saturation ABG Base Excess ABG Hemoglobin ABG Oxyhemoglobin ABG Potassium ABG Glucose Oxyhemoglobin Carboxyhemoglobin Sodium Potassium Chloride Carbon Dioxide BUN Creatinine Glucose POC Glucose 130 H 139 H 136 H Calcium Ferritin Total Bilirubin Alkaline Phosphatase Lactate Dehydrogenase Total Creatine Kinase CK-MB (CK-2) Rel Index Troponin T C-Reactive Protein Total Protein Albumin Prealbumin LDL Cholesterol Direct HDL Cholesterol Arterial Blood Glucose Arterial Blood Ionized Calcium Urine WBC (Auto) 04/03/20 04/03/20 04/04/20 16:51 23:25 05:29 WBC RBC Hgb Hct MCV MCH RDW Plt Count Lymph % (Auto) [place] % (Auto) Lymph # (Auto) [place] # (Auto) Seg Neutrophils % Seg Neuts % (Manual) Lymphocytes % (Manual) Monocytes % (Manual) Basophils % (Manual) Seg Neutrophils # Seg Neutrophils # Man Lymphocytes # (Manual) Monocytes # (Manual) Eosinophils # (Manual) Basophils # (Manual) PT INR D-Dimer ABG pH POC ABG pCO2 POC ABG pO2 ABG pO2 ABG HCO3 ABG O2 Saturation ABG Base Excess ABG Hemoglobin ABG Oxyhemoglobin ABG Potassium ABG Glucose Oxyhemoglobin Carboxyhemoglobin Sodium Potassium Chloride Carbon Dioxide BUN Creatinine Glucose POC Glucose 118 H 111 H 126 H Calcium Ferritin Total Bilirubin Alkaline Phosphatase Lactate Dehydrogenase Total Creatine Kinase CK-MB (CK-2) Rel Index Troponin T C-Reactive Protein Total Protein Albumin Prealbumin LDL Cholesterol Direct HDL Cholesterol Arterial Blood Glucose Arterial Blood Ionized Calcium Urine WBC (Auto) 04/04/20 04/04/20 04/04/20 11:47 17:41 23:05 WBC RBC Hgb Hct MCV MCH RDW Plt Count Lymph % (Auto) [place] % (Auto) Lymph # (Auto) [place] # (Auto) Seg Neutrophils % Seg Neuts % (Manual) Lymphocytes % (Manual) Monocytes % (Manual) Basophils % (Manual) Seg Neutrophils # Seg Neutrophils # Man Lymphocytes # (Manual) Monocytes # (Manual) Eosinophils # (Manual) Basophils # (Manual) PT INR D-Dimer ABG pH POC ABG pCO2 POC ABG pO2 ABG pO2 ABG HCO3 ABG O2 Saturation ABG Base Excess ABG Hemoglobin ABG Oxyhemoglobin ABG Potassium ABG Glucose Oxyhemoglobin Carboxyhemoglobin Sodium Potassium Chloride Carbon Dioxide BUN Creatinine Glucose POC Glucose 123 H 120 H 119 H Calcium Ferritin Total Bilirubin Alkaline Phosphatase Lactate Dehydrogenase Total Creatine Kinase CK-MB (CK-2) Rel Index Troponin T C-Reactive Protein Total Protein Albumin Prealbumin LDL Cholesterol Direct HDL Cholesterol Arterial Blood Glucose Arterial Blood Ionized Calcium Urine WBC (Auto) 04/05/20 04/05/20 04/05/20 05:14 12:16 18:48 WBC RBC Hgb Hct MCV MCH RDW Plt Count Lymph % (Auto) [place] % (Auto) Lymph # (Auto) [place] # (Auto) Seg Neutrophils % Seg Neuts % (Manual) Lymphocytes % (Manual) Monocytes % (Manual) Basophils % (Manual) Seg Neutrophils # Seg Neutrophils # Man Lymphocytes # (Manual) Monocytes # (Manual) Eosinophils # (Manual) Basophils # (Manual) PT INR D-Dimer ABG pH POC ABG pCO2 POC ABG pO2 ABG pO2 ABG HCO3 ABG O2 Saturation ABG Base Excess ABG Hemoglobin ABG Oxyhemoglobin ABG Potassium ABG Glucose Oxyhemoglobin Carboxyhemoglobin Sodium Potassium Chloride Carbon Dioxide BUN Creatinine Glucose POC Glucose 123 H 148 H 106 H Calcium Ferritin Total Bilirubin Alkaline Phosphatase Lactate Dehydrogenase Total Creatine Kinase CK-MB (CK-2) Rel Index Troponin T C-Reactive Protein Total Protein Albumin Prealbumin LDL Cholesterol Direct HDL Cholesterol Arterial Blood Glucose Arterial Blood Ionized Calcium Urine WBC (Auto) 04/06/20 04/06/20 04/06/20 00:47 03:26 08:24 WBC RBC Hgb Hct MCV MCH RDW Plt Count Lymph % (Auto) [place] % (Auto) Lymph # (Auto) [place] # (Auto) Seg Neutrophils % Seg Neuts % (Manual) Lymphocytes % (Manual) Monocytes % (Manual) Basophils % (Manual) Seg Neutrophils # Seg Neutrophils # Man Lymphocytes # (Manual) Monocytes # (Manual) Eosinophils # (Manual) Basophils # (Manual) PT INR D-Dimer ABG pH POC ABG pCO2 POC ABG pO2 ABG pO2 ABG HCO3 ABG O2 Saturation ABG Base Excess ABG Hemoglobin ABG Oxyhemoglobin ABG Potassium ABG Glucose Oxyhemoglobin Carboxyhemoglobin Sodium Potassium Chloride Carbon Dioxide BUN Creatinine Glucose POC Glucose 129 H 134 H 131 H Calcium Ferritin Total Bilirubin Alkaline Phosphatase Lactate Dehydrogenase Total Creatine Kinase CK-MB (CK-2) Rel Index Troponin T C-Reactive Protein Total Protein Albumin Prealbumin LDL Cholesterol Direct HDL Cholesterol Arterial Blood Glucose Arterial Blood Ionized Calcium Urine WBC (Auto) 04/06/20 04/06/20 04/06/20 11:16 16:27 23:01 WBC RBC Hgb Hct MCV MCH RDW Plt Count Lymph % (Auto) [place] % (Auto) Lymph # (Auto) [place] # (Auto) Seg Neutrophils % Seg Neuts % (Manual) Lymphocytes % (Manual) Monocytes % (Manual) Basophils % (Manual) Seg Neutrophils # Seg Neutrophils # Man Lymphocytes # (Manual) Monocytes # (Manual) Eosinophils # (Manual) Basophils # (Manual) PT INR D-Dimer ABG pH POC ABG pCO2 POC ABG pO2 ABG pO2 ABG HCO3 ABG O2 Saturation ABG Base Excess ABG Hemoglobin ABG Oxyhemoglobin ABG Potassium ABG Glucose Oxyhemoglobin Carboxyhemoglobin Sodium Potassium Chloride Carbon Dioxide BUN Creatinine Glucose POC Glucose 131 H 107 H 125 H Calcium Ferritin Total Bilirubin Alkaline Phosphatase Lactate Dehydrogenase Total Creatine Kinase CK-MB (CK-2) Rel Index Troponin T C-Reactive Protein Total Protein Albumin Prealbumin LDL Cholesterol Direct HDL Cholesterol Arterial Blood Glucose Arterial Blood Ionized Calcium Urine WBC (Auto) 04/07/20 04/07/20 04/07/20 05:24 12:41 17:40 WBC RBC Hgb Hct MCV MCH RDW Plt Count Lymph % (Auto) [place] % (Auto) Lymph # (Auto) [place] # (Auto) Seg Neutrophils % Seg Neuts % (Manual) Lymphocytes % (Manual) Monocytes % (Manual) Basophils % (Manual) Seg Neutrophils # Seg Neutrophils # Man Lymphocytes # (Manual) Monocytes # (Manual) Eosinophils # (Manual) Basophils # (Manual) PT INR D-Dimer ABG pH POC ABG pCO2 POC ABG pO2 ABG pO2 ABG HCO3 ABG O2 Saturation ABG Base Excess ABG Hemoglobin ABG Oxyhemoglobin ABG Potassium ABG Glucose Oxyhemoglobin Carboxyhemoglobin Sodium Potassium Chloride Carbon Dioxide BUN Creatinine Glucose POC Glucose 125 H 145 H 123 H Calcium Ferritin Total Bilirubin Alkaline Phosphatase Lactate Dehydrogenase Total Creatine Kinase CK-MB (CK-2) Rel Index Troponin T C-Reactive Protein Total Protein Albumin Prealbumin LDL Cholesterol Direct HDL Cholesterol Arterial Blood Glucose Arterial Blood Ionized Calcium Urine WBC (Auto) 04/07/20 04/08/20 04/08/20 23:22 05:40 11:29 WBC RBC Hgb Hct MCV MCH RDW Plt Count Lymph % (Auto) [place] % (Auto) Lymph # (Auto) [place] # (Auto) Seg Neutrophils % Seg Neuts % (Manual) Lymphocytes % (Manual) Monocytes % (Manual) Basophils % (Manual) Seg Neutrophils # Seg Neutrophils # Man Lymphocytes # (Manual) Monocytes # (Manual) Eosinophils # (Manual) Basophils # (Manual) PT INR D-Dimer ABG pH POC ABG pCO2 POC ABG pO2 ABG pO2 ABG HCO3 ABG O2 Saturation ABG Base Excess ABG Hemoglobin ABG Oxyhemoglobin ABG Potassium ABG Glucose Oxyhemoglobin Carboxyhemoglobin Sodium Potassium Chloride Carbon Dioxide BUN Creatinine Glucose POC Glucose 133 H 125 H 116 H Calcium Ferritin Total Bilirubin Alkaline Phosphatase Lactate Dehydrogenase Total Creatine Kinase CK-MB (CK-2) Rel Index Troponin T C-Reactive Protein Total Protein Albumin Prealbumin LDL Cholesterol Direct HDL Cholesterol Arterial Blood Glucose Arterial Blood Ionized Calcium Urine WBC (Auto) 04/08/20 04/09/20 04/09/20 17:43 05:47 12:22 WBC RBC Hgb Hct MCV MCH RDW Plt Count Lymph % (Auto) [place] % (Auto) Lymph # (Auto) [place] # (Auto) Seg Neutrophils % Seg Neuts % (Manual) Lymphocytes % (Manual) Monocytes % (Manual) Basophils % (Manual) Seg Neutrophils # Seg Neutrophils # Man Lymphocytes # (Manual) Monocytes # (Manual) Eosinophils # (Manual) Basophils # (Manual) PT INR D-Dimer ABG pH POC ABG pCO2 POC ABG pO2 ABG pO2 ABG HCO3 ABG O2 Saturation ABG Base Excess ABG Hemoglobin ABG Oxyhemoglobin ABG Potassium ABG Glucose Oxyhemoglobin Carboxyhemoglobin Sodium Potassium Chloride Carbon Dioxide BUN Creatinine Glucose POC Glucose 123 H 108 H 116 H Calcium Ferritin Total Bilirubin Alkaline Phosphatase Lactate Dehydrogenase Total Creatine Kinase CK-MB (CK-2) Rel Index Troponin T C-Reactive Protein Total Protein Albumin Prealbumin LDL Cholesterol Direct HDL Cholesterol Arterial Blood Glucose Arterial Blood Ionized Calcium Urine WBC (Auto) 04/09/20 04/09/20 04/10/20 17:24 23:52 06:10 WBC RBC Hgb Hct MCV MCH RDW Plt Count Lymph % (Auto) [place] % (Auto) Lymph # (Auto) [place] # (Auto) Seg Neutrophils % Seg Neuts % (Manual) Lymphocytes % (Manual) Monocytes % (Manual) Basophils % (Manual) Seg Neutrophils # Seg Neutrophils # Man Lymphocytes # (Manual) Monocytes # (Manual) Eosinophils # (Manual) Basophils # (Manual) PT INR D-Dimer ABG pH POC ABG pCO2 POC ABG pO2 ABG pO2 ABG HCO3 ABG O2 Saturation ABG Base Excess ABG Hemoglobin ABG Oxyhemoglobin ABG Potassium ABG Glucose Oxyhemoglobin Carboxyhemoglobin Sodium Potassium Chloride Carbon Dioxide BUN Creatinine Glucose POC Glucose 108 H 126 H 122 H Calcium Ferritin Total Bilirubin Alkaline Phosphatase Lactate Dehydrogenase Total Creatine Kinase CK-MB (CK-2) Rel Index Troponin T C-Reactive Protein Total Protein Albumin Prealbumin LDL Cholesterol Direct HDL Cholesterol Arterial Blood Glucose Arterial Blood Ionized Calcium Urine WBC (Auto) 04/10/20 04/10/20 04/10/20 11:27 18:11 23:24 WBC RBC Hgb Hct MCV MCH RDW Plt Count Lymph % (Auto) [place] % (Auto) Lymph # (Auto) [place] # (Auto) Seg Neutrophils % Seg Neuts % (Manual) Lymphocytes % (Manual) Monocytes % (Manual) Basophils % (Manual) Seg Neutrophils # Seg Neutrophils # Man Lymphocytes # (Manual) Monocytes # (Manual) Eosinophils # (Manual) Basophils # (Manual) PT INR D-Dimer ABG pH POC ABG pCO2 POC ABG pO2 ABG pO2 ABG HCO3 ABG O2 Saturation ABG Base Excess ABG Hemoglobin ABG Oxyhemoglobin ABG Potassium ABG Glucose Oxyhemoglobin Carboxyhemoglobin Sodium Potassium Chloride Carbon Dioxide BUN Creatinine Glucose POC Glucose 129 H 125 H 107 H Calcium Ferritin Total Bilirubin Alkaline Phosphatase Lactate Dehydrogenase Total Creatine Kinase CK-MB (CK-2) Rel Index Troponin T C-Reactive Protein Total Protein Albumin Prealbumin LDL Cholesterol Direct HDL Cholesterol Arterial Blood Glucose Arterial Blood Ionized Calcium Urine WBC (Auto) 04/11/20 04/11/20 04/11/20 05:28 11:46 23:49 WBC RBC Hgb Hct MCV MCH RDW Plt Count Lymph % (Auto) [place] % (Auto) Lymph # (Auto) [place] # (Auto) Seg Neutrophils % Seg Neuts % (Manual) Lymphocytes % (Manual) Monocytes % (Manual) Basophils % (Manual) Seg Neutrophils # Seg Neutrophils # Man Lymphocytes # (Manual) Monocytes # (Manual) Eosinophils # (Manual) Basophils # (Manual) PT INR D-Dimer ABG pH POC ABG pCO2 POC ABG pO2 ABG pO2 ABG HCO3 ABG O2 Saturation ABG Base Excess ABG Hemoglobin ABG Oxyhemoglobin ABG Potassium ABG Glucose Oxyhemoglobin Carboxyhemoglobin Sodium Potassium Chloride Carbon Dioxide BUN Creatinine Glucose POC Glucose 122 H 122 H 116 H Calcium Ferritin Total Bilirubin Alkaline Phosphatase Lactate Dehydrogenase Total Creatine Kinase CK-MB (CK-2) Rel Index Troponin T C-Reactive Protein Total Protein Albumin Prealbumin LDL Cholesterol Direct HDL Cholesterol Arterial Blood Glucose Arterial Blood Ionized Calcium Urine WBC (Auto) 04/12/20 04/12/20 04/12/20 09:07 09:07 11:39 WBC 13.1 H RBC 3.59 L Hgb 9.5 L Hct 29.8 L MCV 83 L MCH 26 L RDW 16.6 H Plt Count 591 H Lymph % (Auto) [place] % (Auto) Lymph # (Auto) [place] # (Auto) Seg Neutrophils % Seg Neuts % (Manual) 86.0 H Lymphocytes % (Manual) 7.0 L Monocytes % (Manual) Basophils % (Manual) Seg Neutrophils # Seg Neutrophils # Man 11.3 H Lymphocytes # (Manual) 0.9 L Monocytes # (Manual) Eosinophils # (Manual) Basophils # (Manual) PT INR D-Dimer ABG pH POC ABG pCO2 POC ABG pO2 ABG pO2 ABG HCO3 ABG O2 Saturation ABG Base Excess ABG Hemoglobin ABG Oxyhemoglobin ABG Potassium ABG Glucose Oxyhemoglobin Carboxyhemoglobin Sodium Potassium Chloride Carbon Dioxide 36 H BUN Creatinine < 0.2 L Glucose 132 H POC Glucose 136 H Calcium Ferritin Total Bilirubin Alkaline Phosphatase Lactate Dehydrogenase Total Creatine Kinase CK-MB (CK-2) Rel Index Troponin T C-Reactive Protein Total Protein Albumin 2.7 L Prealbumin LDL Cholesterol Direct HDL Cholesterol Arterial Blood Glucose Arterial Blood Ionized Calcium Urine WBC (Auto) 04/12/20 04/12/20 04/13/20 18:13 23:07 05:45 WBC RBC Hgb Hct MCV MCH RDW Plt Count Lymph % (Auto) [place] % (Auto) Lymph # (Auto) [place] # (Auto) Seg Neutrophils % Seg Neuts % (Manual) Lymphocytes % (Manual) Monocytes % (Manual) Basophils % (Manual) Seg Neutrophils # Seg Neutrophils # Man Lymphocytes # (Manual) Monocytes # (Manual) Eosinophils # (Manual) Basophils # (Manual) PT INR D-Dimer ABG pH POC ABG pCO2 POC ABG pO2 ABG pO2 ABG HCO3 ABG O2 Saturation ABG Base Excess ABG Hemoglobin ABG Oxyhemoglobin ABG Potassium ABG Glucose Oxyhemoglobin Carboxyhemoglobin Sodium Potassium Chloride Carbon Dioxide BUN Creatinine Glucose POC Glucose 107 H 106 H 125 H Calcium Ferritin Total Bilirubin Alkaline Phosphatase Lactate Dehydrogenase Total Creatine Kinase CK-MB (CK-2) Rel Index Troponin T C-Reactive Protein Total Protein Albumin Prealbumin LDL Cholesterol Direct HDL Cholesterol Arterial Blood Glucose Arterial Blood Ionized Calcium Urine WBC (Auto) 04/13/20 04/13/20 04/13/20 11:18 17:56 23:33 WBC RBC Hgb Hct MCV MCH RDW Plt Count Lymph % (Auto) [place] % (Auto) Lymph # (Auto) [place] # (Auto) Seg Neutrophils % Seg Neuts % (Manual) Lymphocytes % (Manual) Monocytes % (Manual) Basophils % (Manual) Seg Neutrophils # Seg Neutrophils # Man Lymphocytes # (Manual) Monocytes # (Manual) Eosinophils # (Manual) Basophils # (Manual) PT INR D-Dimer ABG pH POC ABG pCO2 POC ABG pO2 ABG pO2 ABG HCO3 ABG O2 Saturation ABG Base Excess ABG Hemoglobin ABG Oxyhemoglobin ABG Potassium ABG Glucose Oxyhemoglobin Carboxyhemoglobin Sodium Potassium Chloride Carbon Dioxide BUN Creatinine Glucose POC Glucose 133 H 110 H 114 H Calcium Ferritin Total Bilirubin Alkaline Phosphatase Lactate Dehydrogenase Total Creatine Kinase CK-MB (CK-2) Rel Index Troponin T C-Reactive Protein Total Protein Albumin Prealbumin LDL Cholesterol Direct HDL Cholesterol Arterial Blood Glucose Arterial Blood Ionized Calcium Urine WBC (Auto) 04/14/20 04/14/20 04/14/20 05:58 11:45 17:48 WBC RBC Hgb Hct MCV MCH RDW Plt Count Lymph % (Auto) [place] % (Auto) Lymph # (Auto) [place] # (Auto) Seg Neutrophils % Seg Neuts % (Manual) Lymphocytes % (Manual) Monocytes % (Manual) Basophils % (Manual) Seg Neutrophils # Seg Neutrophils # Man Lymphocytes # (Manual) Monocytes # (Manual) Eosinophils # (Manual) Basophils # (Manual) PT INR D-Dimer ABG pH POC ABG pCO2 POC ABG pO2 ABG pO2 ABG HCO3 ABG O2 Saturation ABG Base Excess ABG Hemoglobin ABG Oxyhemoglobin ABG Potassium ABG Glucose Oxyhemoglobin Carboxyhemoglobin Sodium Potassium Chloride Carbon Dioxide BUN Creatinine Glucose POC Glucose 115 H 122 H 124 H Calcium Ferritin Total Bilirubin Alkaline Phosphatase Lactate Dehydrogenase Total Creatine Kinase CK-MB (CK-2) Rel Index Troponin T C-Reactive Protein Total Protein Albumin Prealbumin LDL Cholesterol Direct HDL Cholesterol Arterial Blood Glucose Arterial Blood Ionized Calcium Urine WBC (Auto) 04/15/20 04/15/20 04/15/20 00:11 05:38 11:31 WBC RBC Hgb Hct MCV MCH RDW Plt Count Lymph % (Auto) [place] % (Auto) Lymph # (Auto) [place] # (Auto) Seg Neutrophils % Seg Neuts % (Manual) Lymphocytes % (Manual) Monocytes % (Manual) Basophils % (Manual) Seg Neutrophils # Seg Neutrophils # Man Lymphocytes # (Manual) Monocytes # (Manual) Eosinophils # (Manual) Basophils # (Manual) PT INR D-Dimer ABG pH POC ABG pCO2 POC ABG pO2 ABG pO2 ABG HCO3 ABG O2 Saturation ABG Base Excess ABG Hemoglobin ABG Oxyhemoglobin ABG Potassium ABG Glucose Oxyhemoglobin Carboxyhemoglobin Sodium Potassium Chloride Carbon Dioxide BUN Creatinine Glucose POC Glucose 120 H 109 H 123 H Calcium Ferritin Total Bilirubin Alkaline Phosphatase Lactate Dehydrogenase Total Creatine Kinase CK-MB (CK-2) Rel Index Troponin T C-Reactive Protein Total Protein Albumin Prealbumin LDL Cholesterol Direct HDL Cholesterol Arterial Blood Glucose Arterial Blood Ionized Calcium Urine WBC (Auto) 04/15/20 04/16/20 04/16/20 17:35 06:00 11:29 WBC RBC Hgb Hct MCV MCH RDW Plt Count Lymph % (Auto) [place] % (Auto) Lymph # (Auto) [place] # (Auto) Seg Neutrophils % Seg Neuts % (Manual) Lymphocytes % (Manual) Monocytes % (Manual) Basophils % (Manual) Seg Neutrophils # Seg Neutrophils # Man Lymphocytes # (Manual) Monocytes # (Manual) Eosinophils # (Manual) Basophils # (Manual) PT INR D-Dimer ABG pH POC ABG pCO2 POC ABG pO2 ABG pO2 ABG HCO3 ABG O2 Saturation ABG Base Excess ABG Hemoglobin ABG Oxyhemoglobin ABG Potassium ABG Glucose Oxyhemoglobin Carboxyhemoglobin Sodium Potassium Chloride Carbon Dioxide BUN Creatinine Glucose POC Glucose 111 H 142 H 108 H Calcium Ferritin Total Bilirubin Alkaline Phosphatase Lactate Dehydrogenase Total Creatine Kinase CK-MB (CK-2) Rel Index Troponin T C-Reactive Protein Total Protein Albumin Prealbumin LDL Cholesterol Direct HDL Cholesterol Arterial Blood Glucose Arterial Blood Ionized Calcium Urine WBC (Auto) 04/17/20 04/17/20 04/17/20 05:09 06:53 06:53 WBC 14.2 H RBC Hgb 10.1 L Hct 31.5 L MCV MCH 27 L RDW 17.2 H Plt Count 643 H Lymph % (Auto) [place] % (Auto) Lymph # (Auto) [place] # (Auto) Seg Neutrophils % Seg Neuts % (Manual) Lymphocytes % (Manual) Monocytes % (Manual) Basophils % (Manual) Seg Neutrophils # Seg Neutrophils # Man Lymphocytes # (Manual) Monocytes # (Manual) Eosinophils # (Manual) Basophils # (Manual) PT INR D-Dimer ABG pH POC ABG pCO2 POC ABG pO2 ABG pO2 ABG HCO3 ABG O2 Saturation ABG Base Excess ABG Hemoglobin ABG Oxyhemoglobin ABG Potassium ABG Glucose Oxyhemoglobin Carboxyhemoglobin Sodium Potassium Chloride 97.7 L Carbon Dioxide 38 H BUN Creatinine < 0.2 L Glucose 126 H POC Glucose 131 H Calcium Ferritin Total Bilirubin Alkaline Phosphatase Lactate Dehydrogenase Total Creatine Kinase CK-MB (CK-2) Rel Index Troponin T C-Reactive Protein Total Protein Albumin Prealbumin LDL Cholesterol Direct HDL Cholesterol Arterial Blood Glucose Arterial Blood Ionized Calcium Urine WBC (Auto) 04/17/20 04/18/20 04/18/20 11:21 00:23 04:01 WBC 15.3 H RBC Hgb 10.1 L Hct 31.9 L MCV 82 L MCH 26 L RDW 17.2 H Plt Count 665 H Lymph % (Auto) 12.9 L [place] % (Auto) Lymph # (Auto) [place] # (Auto) 1.1 H Seg Neutrophils % 78.0 H Seg Neuts % (Manual) Lymphocytes % (Manual) Monocytes % (Manual) Basophils % (Manual) Seg Neutrophils # 11.9 H Seg Neutrophils # Man Lymphocytes # (Manual) Monocytes # (Manual) Eosinophils # (Manual) Basophils # (Manual) PT INR D-Dimer ABG pH POC ABG pCO2 POC ABG pO2 ABG pO2 ABG HCO3 ABG O2 Saturation ABG Base Excess ABG Hemoglobin ABG Oxyhemoglobin ABG Potassium ABG Glucose Oxyhemoglobin Carboxyhemoglobin Sodium Potassium Chloride Carbon Dioxide BUN Creatinine Glucose POC Glucose 140 H 125 H Calcium Ferritin Total Bilirubin Alkaline Phosphatase Lactate Dehydrogenase Total Creatine Kinase CK-MB (CK-2) Rel Index Troponin T C-Reactive Protein Total Protein Albumin Prealbumin LDL Cholesterol Direct HDL Cholesterol Arterial Blood Glucose Arterial Blood Ionized Calcium Urine WBC (Auto) 04/18/20 04/18/20 04/18/20 04:01 11:29 17:30 WBC RBC Hgb Hct MCV MCH RDW Plt Count Lymph % (Auto) [place] % (Auto) Lymph # (Auto) [place] # (Auto) Seg Neutrophils % Seg Neuts % (Manual) Lymphocytes % (Manual) Monocytes % (Manual) Basophils % (Manual) Seg Neutrophils # Seg Neutrophils # Man Lymphocytes # (Manual) Monocytes # (Manual) Eosinophils # (Manual) Basophils # (Manual) PT INR D-Dimer ABG pH POC ABG pCO2 POC ABG pO2 ABG pO2 ABG HCO3 ABG O2 Saturation ABG Base Excess ABG Hemoglobin ABG Oxyhemoglobin ABG Potassium ABG Glucose Oxyhemoglobin Carboxyhemoglobin Sodium Potassium Chloride 97.0 L Carbon Dioxide 38 H BUN Creatinine < 0.2 L Glucose 117 H POC Glucose 136 H 107 H Calcium Ferritin Total Bilirubin Alkaline Phosphatase Lactate Dehydrogenase Total Creatine Kinase CK-MB (CK-2) Rel Index Troponin T C-Reactive Protein Total Protein Albumin Prealbumin LDL Cholesterol Direct HDL Cholesterol Arterial Blood Glucose Arterial Blood Ionized Calcium Urine WBC (Auto) 04/18/20 04/19/20 04/19/20 23:19 06:51 06:51 WBC 12.2 H RBC Hgb 9.8 L Hct 31.1 L MCV 82 L MCH 26 L RDW 17.2 H Plt Count 549 H Lymph % (Auto) 6.5 L [place] % (Auto) Lymph # (Auto) 0.8 L [place] # (Auto) Seg Neutrophils % 86.7 H Seg Neuts % (Manual) Lymphocytes % (Manual) Monocytes % (Manual) Basophils % (Manual) Seg Neutrophils # 10.6 H Seg Neutrophils # Man Lymphocytes # (Manual) Monocytes # (Manual) Eosinophils # (Manual) Basophils # (Manual) PT INR D-Dimer ABG pH POC ABG pCO2 POC ABG pO2 ABG pO2 ABG HCO3 ABG O2 Saturation ABG Base Excess ABG Hemoglobin ABG Oxyhemoglobin ABG Potassium ABG Glucose Oxyhemoglobin Carboxyhemoglobin Sodium Potassium Chloride 97.8 L Carbon Dioxide 38 H BUN Creatinine < 0.2 L Glucose 123 H POC Glucose 127 H Calcium Ferritin Total Bilirubin Alkaline Phosphatase Lactate Dehydrogenase Total Creatine Kinase CK-MB (CK-2) Rel Index Troponin T C-Reactive Protein Total Protein Albumin Prealbumin LDL Cholesterol Direct HDL Cholesterol Arterial Blood Glucose Arterial Blood Ionized Calcium Urine WBC (Auto) 04/19/20 04/19/20 04/20/20 13:41 18:33 05:56 WBC RBC Hgb Hct MCV MCH RDW Plt Count Lymph % (Auto) [place] % (Auto) Lymph # (Auto) [place] # (Auto) Seg Neutrophils % Seg Neuts % (Manual) Lymphocytes % (Manual) Monocytes % (Manual) Basophils % (Manual) Seg Neutrophils # Seg Neutrophils # Man Lymphocytes # (Manual) Monocytes # (Manual) Eosinophils # (Manual) Basophils # (Manual) PT INR D-Dimer ABG pH POC ABG pCO2 POC ABG pO2 ABG pO2 ABG HCO3 ABG O2 Saturation ABG Base Excess ABG Hemoglobin ABG Oxyhemoglobin ABG Potassium ABG Glucose Oxyhemoglobin Carboxyhemoglobin Sodium Potassium Chloride Carbon Dioxide BUN Creatinine Glucose POC Glucose 116 H 124 H 130 H Calcium Ferritin Total Bilirubin Alkaline Phosphatase Lactate Dehydrogenase Total Creatine Kinase CK-MB (CK-2) Rel Index Troponin T C-Reactive Protein Total Protein Albumin Prealbumin LDL Cholesterol Direct HDL Cholesterol Arterial Blood Glucose Arterial Blood Ionized Calcium Urine WBC (Auto) 04/20/20 04/20/20 04/20/20 06:28 06:28 11:46 WBC RBC Hgb 10.2 L Hct 31.5 L MCV 82 L MCH 27 L RDW 17.1 H Plt Count 546 H Lymph % (Auto) 10.0 L [place] % (Auto) 9.8 H Lymph # (Auto) 1.1 L [place] # (Auto) 1.1 H Seg Neutrophils % 78.4 H Seg Neuts % (Manual) Lymphocytes % (Manual) Monocytes % (Manual) Basophils % (Manual) Seg Neutrophils # 8.5 H Seg Neutrophils # Man Lymphocytes # (Manual) Monocytes # (Manual) Eosinophils # (Manual) Basophils # (Manual) PT INR D-Dimer ABG pH POC ABG pCO2 POC ABG pO2 ABG pO2 ABG HCO3 ABG O2 Saturation ABG Base Excess ABG Hemoglobin ABG Oxyhemoglobin ABG Potassium ABG Glucose Oxyhemoglobin Carboxyhemoglobin Sodium Potassium Chloride 97.0 L Carbon Dioxide 38 H BUN Creatinine < 0.2 L Glucose 138 H POC Glucose 130 H Calcium Ferritin Total Bilirubin Alkaline Phosphatase Lactate Dehydrogenase Total Creatine Kinase CK-MB (CK-2) Rel Index Troponin T C-Reactive Protein Total Protein Albumin Prealbumin LDL Cholesterol Direct HDL Cholesterol Arterial Blood Glucose Arterial Blood Ionized Calcium Urine WBC (Auto) 04/20/20 04/21/20 04/21/20 23:31 05:55 05:55 WBC RBC Hgb 10.0 L Hct 31.1 L MCV 82 L MCH 26 L RDW 17.0 H Plt Count 535 H Lymph % (Auto) [place] % (Auto) 9.2 H Lymph # (Auto) 1.1 L [place] # (Auto) Seg Neutrophils % 75.4 H Seg Neuts % (Manual) Lymphocytes % (Manual) Monocytes % (Manual) Basophils % (Manual) Seg Neutrophils # Seg Neutrophils # Man Lymphocytes # (Manual) Monocytes # (Manual) Eosinophils # (Manual) Basophils # (Manual) PT INR D-Dimer ABG pH POC ABG pCO2 POC ABG pO2 ABG pO2 ABG HCO3 ABG O2 Saturation ABG Base Excess ABG Hemoglobin ABG Oxyhemoglobin ABG Potassium ABG Glucose Oxyhemoglobin Carboxyhemoglobin Sodium Potassium Chloride 95.0 L Carbon Dioxide 34 H BUN Creatinine < 0.2 L Glucose 125 H POC Glucose 116 H Calcium Ferritin Total Bilirubin Alkaline Phosphatase Lactate Dehydrogenase Total Creatine Kinase CK-MB (CK-2) Rel Index Troponin T C-Reactive Protein Total Protein Albumin Prealbumin LDL Cholesterol Direct HDL Cholesterol Arterial Blood Glucose Arterial Blood Ionized Calcium Urine WBC (Auto) 04/22/20 04/22/20 04/22/20 00:01 07:45 07:45 WBC RBC Hgb 10.0 L Hct 30.7 L MCV 81 L MCH 27 L RDW 17.1 H Plt Count 490 H Lymph % (Auto) [place] % (Auto) Lymph # (Auto) [place] # (Auto) Seg Neutrophils % Seg Neuts % (Manual) 75.0 H Lymphocytes % (Manual) 11.0 L Monocytes % (Manual) 9.0 H Basophils % (Manual) Seg Neutrophils # Seg Neutrophils # Man Lymphocytes # (Manual) 0.8 L Monocytes # (Manual) Eosinophils # (Manual) Basophils # (Manual) PT INR D-Dimer ABG pH POC ABG pCO2 POC ABG pO2 ABG pO2 ABG HCO3 ABG O2 Saturation ABG Base Excess ABG Hemoglobin ABG Oxyhemoglobin ABG Potassium ABG Glucose Oxyhemoglobin Carboxyhemoglobin Sodium Potassium Chloride 96.3 L Carbon Dioxide 40 H BUN Creatinine < 0.2 L Glucose 109 H POC Glucose 110 H Calcium Ferritin Total Bilirubin Alkaline Phosphatase Lactate Dehydrogenase Total Creatine Kinase CK-MB (CK-2) Rel Index Troponin T C-Reactive Protein Total Protein Albumin Prealbumin LDL Cholesterol Direct HDL Cholesterol Arterial Blood Glucose Arterial Blood Ionized Calcium Urine WBC (Auto) 04/23/20 04/23/20 04/23/20 04:28 04:28 04:28 WBC RBC 3.64 L Hgb 9.7 L Hct 29.4 L MCV 81 L MCH 27 L RDW 17.2 H Plt Count 527 H Lymph % (Auto) [place] % (Auto) 8.9 H Lymph # (Auto) [place] # (Auto) Seg Neutrophils % Seg Neuts % (Manual) Lymphocytes % (Manual) Monocytes % (Manual) Basophils % (Manual) Seg Neutrophils # Seg Neutrophils # Man Lymphocytes # (Manual) Monocytes # (Manual) Eosinophils # (Manual) Basophils # (Manual) PT INR D-Dimer ABG pH POC ABG pCO2 POC ABG pO2 ABG pO2 ABG HCO3 ABG O2 Saturation ABG Base Excess ABG Hemoglobin ABG Oxyhemoglobin ABG Potassium ABG Glucose Oxyhemoglobin Carboxyhemoglobin Sodium Potassium Chloride 96.4 L Carbon Dioxide 32 H D BUN Creatinine < 0.2 L Glucose 134 H POC Glucose Calcium Ferritin Total Bilirubin Alkaline Phosphatase Lactate Dehydrogenase Total Creatine Kinase CK-MB (CK-2) Rel Index Troponin T 0.151 H* C-Reactive Protein Total Protein Albumin Prealbumin LDL Cholesterol Direct HDL Cholesterol 29 L Arterial Blood Glucose Arterial Blood Ionized Calcium Urine WBC (Auto) 04/23/20 04/23/20 04/24/20 06:03 23:41 05:28 WBC RBC 3.56 L Hgb 9.5 L Hct 28.9 L MCV 81 L MCH 27 L RDW 17.4 H Plt Count 462 H Lymph % (Auto) [place] % (Auto) Lymph # (Auto) [place] # (Auto) Seg Neutrophils % Seg Neuts % (Manual) 80.0 H Lymphocytes % (Manual) Monocytes % (Manual) Basophils % (Manual) Seg Neutrophils # Seg Neutrophils # Man Lymphocytes # (Manual) Monocytes # (Manual) Eosinophils # (Manual) Basophils # (Manual) PT INR D-Dimer ABG pH POC ABG pCO2 POC ABG pO2 ABG pO2 ABG HCO3 ABG O2 Saturation ABG Base Excess ABG Hemoglobin ABG Oxyhemoglobin ABG Potassium ABG Glucose Oxyhemoglobin Carboxyhemoglobin Sodium Potassium Chloride Carbon Dioxide BUN Creatinine Glucose POC Glucose 132 H 117 H Calcium Ferritin Total Bilirubin Alkaline Phosphatase Lactate Dehydrogenase Total Creatine Kinase CK-MB (CK-2) Rel Index Troponin T C-Reactive Protein Total Protein Albumin Prealbumin LDL Cholesterol Direct HDL Cholesterol Arterial Blood Glucose Arterial Blood Ionized Calcium Urine WBC (Auto) 04/24/20 04/24/20 04/24/20 05:28 05:28 05:33 WBC RBC Hgb Hct MCV MCH RDW Plt Count Lymph % (Auto) [place] % (Auto) Lymph # (Auto) [place] # (Auto) Seg Neutrophils % Seg Neuts % (Manual) Lymphocytes % (Manual) Monocytes % (Manual) Basophils % (Manual) Seg Neutrophils # Seg Neutrophils # Man Lymphocytes # (Manual) Monocytes # (Manual) Eosinophils # (Manual) Basophils # (Manual) PT INR D-Dimer ABG pH POC ABG pCO2 POC ABG pO2 ABG pO2 ABG HCO3 ABG O2 Saturation ABG Base Excess ABG Hemoglobin ABG Oxyhemoglobin ABG Potassium ABG Glucose Oxyhemoglobin Carboxyhemoglobin Sodium Potassium Chloride 96.1 L Carbon Dioxide 40 H D BUN Creatinine < 0.2 L Glucose 115 H POC Glucose 109 H Calcium Ferritin Total Bilirubin Alkaline Phosphatase Lactate Dehydrogenase Total Creatine Kinase CK-MB (CK-2) Rel Index Troponin T 0.181 H* C-Reactive Protein Total Protein Albumin Prealbumin LDL Cholesterol Direct HDL Cholesterol Arterial Blood Glucose Arterial Blood Ionized Calcium Urine WBC (Auto) 04/24/20 04/24/20 04/25/20 11:17 18:23 00:12 WBC RBC Hgb Hct MCV MCH RDW Plt Count Lymph % (Auto) [place] % (Auto) Lymph # (Auto) [place] # (Auto) Seg Neutrophils % Seg Neuts % (Manual) Lymphocytes % (Manual) Monocytes % (Manual) Basophils % (Manual) Seg Neutrophils # Seg Neutrophils # Man Lymphocytes # (Manual) Monocytes # (Manual) Eosinophils # (Manual) Basophils # (Manual) PT INR D-Dimer ABG pH POC ABG pCO2 POC ABG pO2 ABG pO2 ABG HCO3 ABG O2 Saturation ABG Base Excess ABG Hemoglobin ABG Oxyhemoglobin ABG Potassium ABG Glucose Oxyhemoglobin Carboxyhemoglobin Sodium Potassium Chloride Carbon Dioxide BUN Creatinine Glucose POC Glucose 117 H 109 H 113 H Calcium Ferritin Total Bilirubin Alkaline Phosphatase Lactate Dehydrogenase Total Creatine Kinase CK-MB (CK-2) Rel Index Troponin T C-Reactive Protein Total Protein Albumin Prealbumin LDL Cholesterol Direct HDL Cholesterol Arterial Blood Glucose Arterial Blood Ionized Calcium Urine WBC (Auto) 04/25/20 04/25/20 04/25/20 06:34 06:34 11:28 WBC 11.7 H RBC Hgb 10.0 L Hct 31.7 L MCV 82 L MCH 26 L RDW 17.5 H Plt Count 564 H Lymph % (Auto) [place] % (Auto) Lymph # (Auto) [place] # (Auto) Seg Neutrophils % Seg Neuts % (Manual) 78.0 H Lymphocytes % (Manual) 10.0 L Monocytes % (Manual) 9.0 H Basophils % (Manual) Seg Neutrophils # Seg Neutrophils # Man 9.1 H Lymphocytes # (Manual) Monocytes # (Manual) 1.1 H Eosinophils # (Manual) Basophils # (Manual) PT INR D-Dimer ABG pH POC ABG pCO2 POC ABG pO2 ABG pO2 ABG HCO3 ABG O2 Saturation ABG Base Excess ABG Hemoglobin ABG Oxyhemoglobin ABG Potassium ABG Glucose Oxyhemoglobin Carboxyhemoglobin Sodium Potassium Chloride Carbon Dioxide 39 H BUN Creatinine < 0.2 L Glucose 103 H POC Glucose 112 H Calcium Ferritin Total Bilirubin Alkaline Phosphatase Lactate Dehydrogenase Total Creatine Kinase CK-MB (CK-2) Rel Index Troponin T C-Reactive Protein Total Protein Albumin Prealbumin LDL Cholesterol Direct HDL Cholesterol Arterial Blood Glucose Arterial Blood Ionized Calcium Urine WBC (Auto) 04/27/20 04/27/20 04/27/20 11:48 17:08 23:31 WBC RBC Hgb Hct MCV MCH RDW Plt Count Lymph % (Auto) [place] % (Auto) Lymph # (Auto) [place] # (Auto) Seg Neutrophils % Seg Neuts % (Manual) Lymphocytes % (Manual) Monocytes % (Manual) Basophils % (Manual) Seg Neutrophils # Seg Neutrophils # Man Lymphocytes # (Manual) Monocytes # (Manual) Eosinophils # (Manual) Basophils # (Manual) PT INR D-Dimer ABG pH POC ABG pCO2 POC ABG pO2 ABG pO2 ABG HCO3 ABG O2 Saturation ABG Base Excess ABG Hemoglobin ABG Oxyhemoglobin ABG Potassium ABG Glucose Oxyhemoglobin Carboxyhemoglobin Sodium Potassium Chloride Carbon Dioxide BUN Creatinine Glucose POC Glucose 124 H 118 H 122 H Calcium Ferritin Total Bilirubin Alkaline Phosphatase Lactate Dehydrogenase Total Creatine Kinase CK-MB (CK-2) Rel Index Troponin T C-Reactive Protein Total Protein Albumin Prealbumin LDL Cholesterol Direct HDL Cholesterol Arterial Blood Glucose Arterial Blood Ionized Calcium Urine WBC (Auto) 04/28/20 04/29/20 04/29/20 05:42 00:14 05:30 WBC RBC Hgb Hct MCV MCH RDW Plt Count Lymph % (Auto) [place] % (Auto) Lymph # (Auto) [place] # (Auto) Seg Neutrophils % Seg Neuts % (Manual) Lymphocytes % (Manual) Monocytes % (Manual) Basophils % (Manual) Seg Neutrophils # Seg Neutrophils # Man Lymphocytes # (Manual) Monocytes # (Manual) Eosinophils # (Manual) Basophils # (Manual) PT INR D-Dimer ABG pH POC ABG pCO2 POC ABG pO2 ABG pO2 ABG HCO3 ABG O2 Saturation ABG Base Excess ABG Hemoglobin ABG Oxyhemoglobin ABG Potassium ABG Glucose Oxyhemoglobin Carboxyhemoglobin Sodium Potassium Chloride Carbon Dioxide BUN Creatinine Glucose POC Glucose 122 H 115 H 123 H Calcium Ferritin Total Bilirubin Alkaline Phosphatase Lactate Dehydrogenase Total Creatine Kinase CK-MB (CK-2) Rel Index Troponin T C-Reactive Protein Total Protein Albumin Prealbumin LDL Cholesterol Direct HDL Cholesterol Arterial Blood Glucose Arterial Blood Ionized Calcium Urine WBC (Auto) 04/30/20 05/01/20 05/01/20 00:29 05:39 12:30 WBC RBC Hgb Hct MCV MCH RDW Plt Count Lymph % (Auto) [place] % (Auto) Lymph # (Auto) [place] # (Auto) Seg Neutrophils % Seg Neuts % (Manual) Lymphocytes % (Manual) Monocytes % (Manual) Basophils % (Manual) Seg Neutrophils # Seg Neutrophils # Man Lymphocytes # (Manual) Monocytes # (Manual) Eosinophils # (Manual) Basophils # (Manual) PT INR D-Dimer ABG pH POC ABG pCO2 POC ABG pO2 ABG pO2 ABG HCO3 ABG O2 Saturation ABG Base Excess ABG Hemoglobin ABG Oxyhemoglobin ABG Potassium ABG Glucose Oxyhemoglobin Carboxyhemoglobin Sodium Potassium Chloride Carbon Dioxide BUN Creatinine Glucose POC Glucose 106 H 109 H 108 H Calcium Ferritin Total Bilirubin Alkaline Phosphatase Lactate Dehydrogenase Total Creatine Kinase CK-MB (CK-2) Rel Index Troponin T C-Reactive Protein Total Protein Albumin Prealbumin LDL Cholesterol Direct HDL Cholesterol Arterial Blood Glucose Arterial Blood Ionized Calcium Urine WBC (Auto) 05/01/20 05/03/20 05/03/20 23:35 05:09 11:36 WBC RBC Hgb Hct MCV MCH RDW Plt Count Lymph % (Auto) [place] % (Auto) Lymph # (Auto) [place] # (Auto) Seg Neutrophils % Seg Neuts % (Manual) Lymphocytes % (Manual) Monocytes % (Manual) Basophils % (Manual) Seg Neutrophils # Seg Neutrophils # Man Lymphocytes # (Manual) Monocytes # (Manual) Eosinophils # (Manual) Basophils # (Manual) PT INR D-Dimer ABG pH POC ABG pCO2 POC ABG pO2 ABG pO2 ABG HCO3 ABG O2 Saturation ABG Base Excess ABG Hemoglobin ABG Oxyhemoglobin ABG Potassium ABG Glucose Oxyhemoglobin Carboxyhemoglobin Sodium Potassium Chloride Carbon Dioxide BUN Creatinine Glucose POC Glucose 116 H 117 H 116 H Calcium Ferritin Total Bilirubin Alkaline Phosphatase Lactate Dehydrogenase Total Creatine Kinase CK-MB (CK-2) Rel Index Troponin T C-Reactive Protein Total Protein Albumin Prealbumin LDL Cholesterol Direct HDL Cholesterol Arterial Blood Glucose Arterial Blood Ionized Calcium Urine WBC (Auto) 05/03/20 05/03/20 05/03/20 14:06 14:06 23:39 WBC 12.5 H RBC Hgb 10.0 L Hct 31.2 L MCV 80 L MCH 26 L RDW 17.6 H Plt Count 488 H Lymph % (Auto) [place] % (Auto) Lymph # (Auto) [place] # (Auto) Seg Neutrophils % Seg Neuts % (Manual) Lymphocytes % (Manual) Monocytes % (Manual) Basophils % (Manual) Seg Neutrophils # Seg Neutrophils # Man Lymphocytes # (Manual) Monocytes # (Manual) Eosinophils # (Manual) Basophils # (Manual) PT INR D-Dimer ABG pH POC ABG pCO2 POC ABG pO2 ABG pO2 ABG HCO3 ABG O2 Saturation ABG Base Excess ABG Hemoglobin ABG Oxyhemoglobin ABG Potassium ABG Glucose Oxyhemoglobin Carboxyhemoglobin Sodium Potassium Chloride 95.4 L Carbon Dioxide 40 H BUN Creatinine < 0.2 L Glucose 121 H POC Glucose 107 H Calcium Ferritin Total Bilirubin Alkaline Phosphatase Lactate Dehydrogenase Total Creatine Kinase CK-MB (CK-2) Rel Index Troponin T C-Reactive Protein Total Protein Albumin Prealbumin LDL Cholesterol Direct HDL Cholesterol Arterial Blood Glucose Arterial Blood Ionized Calcium Urine WBC (Auto) 05/04/20 05/04/20 05/04/20 11:31 16:57 23:18 WBC RBC Hgb Hct MCV MCH RDW Plt Count Lymph % (Auto) [place] % (Auto) Lymph # (Auto) [place] # (Auto) Seg Neutrophils % Seg Neuts % (Manual) Lymphocytes % (Manual) Monocytes % (Manual) Basophils % (Manual) Seg Neutrophils # Seg Neutrophils # Man Lymphocytes # (Manual) Monocytes # (Manual) Eosinophils # (Manual) Basophils # (Manual) PT INR D-Dimer ABG pH POC ABG pCO2 POC ABG pO2 ABG pO2 ABG HCO3 ABG O2 Saturation ABG Base Excess ABG Hemoglobin ABG Oxyhemoglobin ABG Potassium ABG Glucose Oxyhemoglobin Carboxyhemoglobin Sodium Potassium Chloride Carbon Dioxide BUN Creatinine Glucose POC Glucose 113 H 126 H 126 H Calcium Ferritin Total Bilirubin Alkaline Phosphatase Lactate Dehydrogenase Total Creatine Kinase CK-MB (CK-2) Rel Index Troponin T C-Reactive Protein Total Protein Albumin Prealbumin LDL Cholesterol Direct HDL Cholesterol Arterial Blood Glucose Arterial Blood Ionized Calcium Urine WBC (Auto) 05/05/20 05/05/20 05/05/20 05:32 11:11 23:57 WBC RBC Hgb Hct MCV MCH RDW Plt Count Lymph % (Auto) [place] % (Auto) Lymph # (Auto) [place] # (Auto) Seg Neutrophils % Seg Neuts % (Manual) Lymphocytes % (Manual) Monocytes % (Manual) Basophils % (Manual) Seg Neutrophils # Seg Neutrophils # Man Lymphocytes # (Manual) Monocytes # (Manual) Eosinophils # (Manual) Basophils # (Manual) PT INR D-Dimer ABG pH POC ABG pCO2 POC ABG pO2 ABG pO2 ABG HCO3 ABG O2 Saturation ABG Base Excess ABG Hemoglobin ABG Oxyhemoglobin ABG Potassium ABG Glucose Oxyhemoglobin Carboxyhemoglobin Sodium Potassium Chloride Carbon Dioxide BUN Creatinine Glucose POC Glucose 109 H 124 H 119 H Calcium Ferritin Total Bilirubin Alkaline Phosphatase Lactate Dehydrogenase Total Creatine Kinase CK-MB (CK-2) Rel Index Troponin T C-Reactive Protein Total Protein Albumin Prealbumin LDL Cholesterol Direct HDL Cholesterol Arterial Blood Glucose Arterial Blood Ionized Calcium Urine WBC (Auto) 05/06/20 05/06/20 05/07/20 05:34 23:08 04:43 WBC RBC Hgb 10.1 L Hct 31.9 L MCV 81 L MCH 25 L RDW 17.6 H Plt Count 506 H Lymph % (Auto) [place] % (Auto) 8.6 H Lymph # (Auto) [place] # (Auto) 0.9 H Seg Neutrophils % Seg Neuts % (Manual) Lymphocytes % (Manual) Monocytes % (Manual) Basophils % (Manual) Seg Neutrophils # Seg Neutrophils # Man Lymphocytes # (Manual) Monocytes # (Manual) Eosinophils # (Manual) Basophils # (Manual) PT INR D-Dimer ABG pH POC ABG pCO2 POC ABG pO2 ABG pO2 ABG HCO3 ABG O2 Saturation ABG Base Excess ABG Hemoglobin ABG Oxyhemoglobin ABG Potassium ABG Glucose Oxyhemoglobin Carboxyhemoglobin Sodium Potassium Chloride Carbon Dioxide BUN Creatinine Glucose POC Glucose 121 H 107 H Calcium Ferritin Total Bilirubin Alkaline Phosphatase Lactate Dehydrogenase Total Creatine Kinase CK-MB (CK-2) Rel Index Troponin T C-Reactive Protein Total Protein Albumin Prealbumin LDL Cholesterol Direct HDL Cholesterol Arterial Blood Glucose Arterial Blood Ionized Calcium Urine WBC (Auto) 05/07/20 05/07/2021 06:18 17:13 23:29 WBC RBC Hgb Hct MCV MCH RDW Plt Count Lymph % (Auto) [place] % (Auto) Lymph # (Auto) [place] # (Auto) Seg Neutrophils % Seg Neuts % (Manual) Lymphocytes % (Manual) Monocytes % (Manual) Basophils % (Manual) Seg Neutrophils # Seg Neutrophils # Man Lymphocytes # (Manual) Monocytes # (Manual) Eosinophils # (Manual) Basophils # (Manual) PT INR D-Dimer ABG pH POC ABG pCO2 POC ABG pO2 ABG pO2 ABG HCO3 ABG O2 Saturation ABG Base Excess ABG Hemoglobin ABG Oxyhemoglobin ABG Potassium ABG Glucose Oxyhemoglobin Carboxyhemoglobin Sodium Potassium Chloride Carbon Dioxide BUN Creatinine Glucose POC Glucose 121 H 122 H 114 H Calcium Ferritin Total Bilirubin Alkaline Phosphatase Lactate Dehydrogenase Total Creatine Kinase CK-MB (CK-2) Rel Index Troponin T C-Reactive Protein Total Protein Albumin Prealbumin LDL Cholesterol Direct HDL Cholesterol Arterial Blood Glucose Arterial Blood Ionized Calcium Urine WBC (Auto) 05/08/20 05/08/20 05/08/20 05:20 11:57 23:42 WBC RBC Hgb Hct MCV MCH RDW Plt Count Lymph % (Auto) [place] % (Auto) Lymph # (Auto) [place] # (Auto) Seg Neutrophils % Seg Neuts % (Manual) Lymphocytes % (Manual) Monocytes % (Manual) Basophils % (Manual) Seg Neutrophils # Seg Neutrophils # Man Lymphocytes # (Manual) Monocytes # (Manual) Eosinophils # (Manual) Basophils # (Manual) PT INR D-Dimer ABG pH POC ABG pCO2 POC ABG pO2 ABG pO2 ABG HCO3 ABG O2 Saturation ABG Base Excess ABG Hemoglobin ABG Oxyhemoglobin ABG Potassium ABG Glucose Oxyhemoglobin Carboxyhemoglobin Sodium Potassium Chloride Carbon Dioxide BUN Creatinine Glucose POC Glucose 121 H 113 H 135 H Calcium Ferritin Total Bilirubin Alkaline Phosphatase Lactate Dehydrogenase Total Creatine Kinase CK-MB (CK-2) Rel Index Troponin T C-Reactive Protein Total Protein Albumin Prealbumin LDL Cholesterol Direct HDL Cholesterol Arterial Blood Glucose Arterial Blood Ionized Calcium Urine WBC (Auto) 05/09/20 05/09/20 05/09/20 05:31 11:11 16:06 WBC RBC Hgb Hct MCV MCH RDW Plt Count Lymph % (Auto) [place] % (Auto) Lymph # (Auto) [place] # (Auto) Seg Neutrophils % Seg Neuts % (Manual) Lymphocytes % (Manual) Monocytes % (Manual) Basophils % (Manual) Seg Neutrophils # Seg Neutrophils # Man Lymphocytes # (Manual) Monocytes # (Manual) Eosinophils # (Manual) Basophils # (Manual) PT INR D-Dimer ABG pH POC ABG pCO2 POC ABG pO2 ABG pO2 ABG HCO3 ABG O2 Saturation ABG Base Excess ABG Hemoglobin ABG Oxyhemoglobin ABG Potassium ABG Glucose Oxyhemoglobin Carboxyhemoglobin Sodium 136 L Potassium Chloride 97.0 L Carbon Dioxide 34 H BUN Creatinine < 0.2 L Glucose 107 H POC Glucose 66 L 127 H Calcium Ferritin Total Bilirubin Alkaline Phosphatase Lactate Dehydrogenase Total Creatine Kinase CK-MB (CK-2) Rel Index Troponin T C-Reactive Protein Total Protein Albumin Prealbumin LDL Cholesterol Direct HDL Cholesterol Arterial Blood Glucose Arterial Blood Ionized Calcium Urine WBC (Auto) 05/09/20 05/10/20 05/10/20 23:19 04:59 11:28 WBC RBC Hgb Hct MCV MCH RDW Plt Count Lymph % (Auto) [place] % (Auto) Lymph # (Auto) [place] # (Auto) Seg Neutrophils % Seg Neuts % (Manual) Lymphocytes % (Manual) Monocytes % (Manual) Basophils % (Manual) Seg Neutrophils # Seg Neutrophils # Man Lymphocytes # (Manual) Monocytes # (Manual) Eosinophils # (Manual) Basophils # (Manual) PT INR D-Dimer ABG pH POC ABG pCO2 POC ABG pO2 ABG pO2 ABG HCO3 ABG O2 Saturation ABG Base Excess ABG Hemoglobin ABG Oxyhemoglobin ABG Potassium ABG Glucose Oxyhemoglobin Carboxyhemoglobin Sodium Potassium Chloride Carbon Dioxide BUN Creatinine Glucose POC Glucose 108 H 126 H 124 H Calcium Ferritin Total Bilirubin Alkaline Phosphatase Lactate Dehydrogenase Total Creatine Kinase CK-MB (CK-2) Rel Index Troponin T C-Reactive Protein Total Protein Albumin Prealbumin LDL Cholesterol Direct HDL Cholesterol Arterial Blood Glucose Arterial Blood Ionized Calcium Urine WBC (Auto) 05/10/20 05/11/20 05/11/20 23:56 06:13 11:44 WBC RBC Hgb Hct MCV MCH RDW Plt Count Lymph % (Auto) [place] % (Auto) Lymph # (Auto) [place] # (Auto) Seg Neutrophils % Seg Neuts % (Manual) Lymphocytes % (Manual) Monocytes % (Manual) Basophils % (Manual) Seg Neutrophils # Seg Neutrophils # Man Lymphocytes # (Manual) Monocytes # (Manual) Eosinophils # (Manual) Basophils # (Manual) PT INR D-Dimer ABG pH POC ABG pCO2 POC ABG pO2 ABG pO2 ABG HCO3 ABG O2 Saturation ABG Base Excess ABG Hemoglobin ABG Oxyhemoglobin ABG Potassium ABG Glucose Oxyhemoglobin Carboxyhemoglobin Sodium Potassium Chloride Carbon Dioxide BUN Creatinine Glucose POC Glucose 113 H 124 H 125 H Calcium Ferritin Total Bilirubin Alkaline Phosphatase Lactate Dehydrogenase Total Creatine Kinase CK-MB (CK-2) Rel Index Troponin T C-Reactive Protein Total Protein Albumin Prealbumin LDL Cholesterol Direct HDL Cholesterol Arterial Blood Glucose Arterial Blood Ionized Calcium Urine WBC (Auto) 05/12/20 05/12/20 05/12/20 06:04 12:17 17:23 WBC RBC Hgb Hct MCV MCH RDW Plt Count Lymph % (Auto) [place] % (Auto) Lymph # (Auto) [place] # (Auto) Seg Neutrophils % Seg Neuts % (Manual) Lymphocytes % (Manual) Monocytes % (Manual) Basophils % (Manual) Seg Neutrophils # Seg Neutrophils # Man Lymphocytes # (Manual) Monocytes # (Manual) Eosinophils # (Manual) Basophils # (Manual) PT INR D-Dimer ABG pH POC ABG pCO2 POC ABG pO2 ABG pO2 ABG HCO3 ABG O2 Saturation ABG Base Excess ABG Hemoglobin ABG Oxyhemoglobin ABG Potassium ABG Glucose Oxyhemoglobin Carboxyhemoglobin Sodium Potassium Chloride Carbon Dioxide BUN Creatinine Glucose POC Glucose 135 H 136 H 133 H Calcium Ferritin Total Bilirubin Alkaline Phosphatase Lactate Dehydrogenase Total Creatine Kinase CK-MB (CK-2) Rel Index Troponin T C-Reactive Protein Total Protein Albumin Prealbumin LDL Cholesterol Direct HDL Cholesterol Arterial Blood Glucose Arterial Blood Ionized Calcium Urine WBC (Auto) 05/12/20 05/13/20 05/13/20 23:34 05:36 11:25 WBC RBC Hgb Hct MCV MCH RDW Plt Count Lymph % (Auto) [place] % (Auto) Lymph # (Auto) [place] # (Auto) Seg Neutrophils % Seg Neuts % (Manual) Lymphocytes % (Manual) Monocytes % (Manual) Basophils % (Manual) Seg Neutrophils # Seg Neutrophils # Man Lymphocytes # (Manual) Monocytes # (Manual) Eosinophils # (Manual) Basophils # (Manual) PT INR D-Dimer ABG pH POC ABG pCO2 POC ABG pO2 ABG pO2 ABG HCO3 ABG O2 Saturation ABG Base Excess ABG Hemoglobin ABG Oxyhemoglobin ABG Potassium ABG Glucose Oxyhemoglobin Carboxyhemoglobin Sodium Potassium Chloride Carbon Dioxide BUN Creatinine Glucose POC Glucose 141 H 131 H 148 H Calcium Ferritin Total Bilirubin Alkaline Phosphatase Lactate Dehydrogenase Total Creatine Kinase CK-MB (CK-2) Rel Index Troponin T C-Reactive Protein Total Protein Albumin Prealbumin LDL Cholesterol Direct HDL Cholesterol Arterial Blood Glucose Arterial Blood Ionized Calcium Urine WBC (Auto) 05/13/20 05/14/20 05/14/20 16:40 00:11 05:03 WBC RBC Hgb Hct MCV MCH RDW Plt Count Lymph % (Auto) [place] % (Auto) Lymph # (Auto) [place] # (Auto) Seg Neutrophils % Seg Neuts % (Manual) Lymphocytes % (Manual) Monocytes % (Manual) Basophils % (Manual) Seg Neutrophils # Seg Neutrophils # Man Lymphocytes # (Manual) Monocytes # (Manual) Eosinophils # (Manual) Basophils # (Manual) PT INR D-Dimer ABG pH POC ABG pCO2 POC ABG pO2 ABG pO2 ABG HCO3 ABG O2 Saturation ABG Base Excess ABG Hemoglobin ABG Oxyhemoglobin ABG Potassium ABG Glucose Oxyhemoglobin Carboxyhemoglobin Sodium Potassium Chloride Carbon Dioxide BUN Creatinine Glucose POC Glucose 118 H 128 H 129 H Calcium Ferritin Total Bilirubin Alkaline Phosphatase Lactate Dehydrogenase Total Creatine Kinase CK-MB (CK-2) Rel Index Troponin T C-Reactive Protein Total Protein Albumin Prealbumin LDL Cholesterol Direct HDL Cholesterol Arterial Blood Glucose Arterial Blood Ionized Calcium Urine WBC (Auto) 05/14/20 05/15/20 05/16/20 11:38 23:46 05:20 WBC RBC Hgb Hct MCV MCH RDW Plt Count Lymph % (Auto) [place] % (Auto) Lymph # (Auto) [place] # (Auto) Seg Neutrophils % Seg Neuts % (Manual) Lymphocytes % (Manual) Monocytes % (Manual) Basophils % (Manual) Seg Neutrophils # Seg Neutrophils # Man Lymphocytes # (Manual) Monocytes # (Manual) Eosinophils # (Manual) Basophils # (Manual) PT INR D-Dimer ABG pH POC ABG pCO2 POC ABG pO2 ABG pO2 ABG HCO3 ABG O2 Saturation ABG Base Excess ABG Hemoglobin ABG Oxyhemoglobin ABG Potassium ABG Glucose Oxyhemoglobin Carboxyhemoglobin Sodium Potassium Chloride Carbon Dioxide BUN Creatinine Glucose POC Glucose 134 H 107 H 122 H Calcium Ferritin Total Bilirubin Alkaline Phosphatase Lactate Dehydrogenase Total Creatine Kinase CK-MB (CK-2) Rel Index Troponin T C-Reactive Protein Total Protein Albumin Prealbumin LDL Cholesterol Direct HDL Cholesterol Arterial Blood Glucose Arterial Blood Ionized Calcium Urine WBC (Auto) 05/16/20 05/16/20 11:57 23:51 WBC RBC Hgb Hct MCV MCH RDW Plt Count Lymph % (Auto) [place] % (Auto) Lymph # (Auto) [place] # (Auto) Seg Neutrophils % Seg Neuts % (Manual) Lymphocytes % (Manual) Monocytes % (Manual) Basophils % (Manual) Seg Neutrophils # Seg Neutrophils # Man Lymphocytes # (Manual) Monocytes # (Manual) Eosinophils # (Manual) Basophils # (Manual) PT INR D-Dimer ABG pH POC ABG pCO2 POC ABG pO2 ABG pO2 ABG HCO3 ABG O2 Saturation ABG Base Excess ABG Hemoglobin ABG Oxyhemoglobin ABG Potassium ABG Glucose Oxyhemoglobin Carboxyhemoglobin Sodium Potassium Chloride Carbon Dioxide BUN Creatinine Glucose POC Glucose 108 H 111 H Calcium Ferritin Total Bilirubin Alkaline Phosphatase Lactate Dehydrogenase Total Creatine Kinase CK-MB (CK-2) Rel Index Troponin T C-Reactive Protein Total Protein Albumin Prealbumin LDL Cholesterol Direct HDL Cholesterol Arterial Blood Glucose Arterial Blood Ionized Calcium Urine WBC (Auto) Allied health notes reviewed: nursing
--- NOTE | 2020-05-17 15:00 | Progress Note ---
Assessment and Plan --Acute hypoxic hypercapnic respiratory failure; Intubated on mechanical ventilation. Etiology secondary to sepsis, ALS, multifocal pneumonia (Covid negative). S/p trach placement 03/07/20 --Status post cardiac arrest on 02/25, cardiac hernandez now stable --Dysphagia, status post PEG placement for tube feeding --ALS; Chronic Continue to provide supportive care --Elevated D-dimers; CTA chest, lower extremity venous Doppler both are negative Lovenox for DVT prophylaxis --Bilateral pneumonia; probably community-acquired Completed treatment ID recommendations appreciated --Sepsis secondary to pneumonia s/p empiric antibiotic --Elevated troponin; Serial cardiac enzymes, serial EKGs Echocardiogram, cardiology consult if needed --Hypernatremia Trend sodium Free water via feeding tube --Abdominal distention due to bladder outlet obstruction, resolved CT abdomen showed bladder outlet obstruction, urology consulted s/p drake placement by urology on 03/09 --Hypotension possibly from septic shock and bladder outlet obstruction improved following placing drake --Hypernatremia due to hypovolumia, resolved free water with TF --Constipation; Patient already received Dulcolax suppository and Colace Received milk of magnesia, with relief --DVT prophylaxis; Lovenox Brief history: 59-year-old male patient with significant past medical history of ALS, presented to ED with worsening shortness of breath 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 Patient was on a trilogy machine for breathing 18/11. EMS arrived, patient had O2 sats in the 80s. EMS attempted to place patient on their CPAP machine, however patient did not tolerate. Patient was admitted to the ICU with diagnosis of acute hypoxic respiratory failure and placed on BiPAP. Patient initially tolerated but later deteriorated with respiratory status. CTA chest showed no PE but significant for bilateral pneumonia. Doppler ultrasound also negative for DVT. COVID-19 test ordered and negative. Due to persistent hypoxia and asystolic/V. fib cardiac arrest, patient was intubated on 02/26/2020 at 1500. Patient now on mechanical ventilation in the ICU s/p trach placement and now unable to wean off from the mechanical ventilation. Patient now status post PEG placement for tube feeding. Patient most likely need long-term placement -LTAC versus SNF Daily course: 02/25/2020. CTA of the chest reveals no PE but does illustrate the bilateral pneumonia. Doppler ultrasound also negative for DVT. Blood cultures are pe nding. Await COVID-19 testing. Patient currently requiring BiPAP IPAP 24/EPAP 6 with FiO2 of 25%. Continue O2 and BiPAP as clinically indicated. ID and pulmonary consulted. 02/26/2020. Blood cultures are negative x48 hours and Covid testing negative as well. Continue antibiotics per ID recommendations for community-acquired bilateral pneumonia. Cardiology consultation for elevated troponin. Check echocardiogram. 02/27/2020. Events of yesterday noted with asystole following V. fib arrest. Patient currently on AC mode rate 20, tidal volume 400, FiO2 50% and a PEEP of 6. Follow-up echocardiogram for elevated troponin. Cardiology suspects NSTEMI Type 2 in the setting of acute resp failure. Chest CTA and BLE Dopplers neg. we will discontinue Decadron given the Covid PCR is negative. 02/28/2020. I spoke with the sister Felisa Eli who is the power of business attorney regarding advanced directives and she instructed me that she would like to continue with aggressive care at this time. I informed her of the guarded prognosis and high mortality/morbidity and she voiced understanding. Patient currently with AC mode ventilation rate 18, tidal volume 400, FiO2 40% and a PEEP of 6. Continue antibiotics for pneumonia. ID previously consulted. Also consult neurology with regards to ALS. 02/29/2020; patient is intubated and on CPAP patient is alert and oriented. Patient has ALS. Dr. Álvarez spoke with his sister and she wants aggressive care. Continue antibiotics for pneumonia. Neurology consulted for ALS. Prognosis poor 03/01/2020; patient is intubated and on CPAP, patient is alert and oriented. I spoke with his 2 sisters about the management plan. 03/02/2020; patient is intubated and on CPAP. Patient was alert and oriented. I spoke with Dr. mohr and he thinks patient may need mechanical ventilation, likely his disease progressed. Dr. Flowers did debridement this morning. 03/03/2020; patient is intubated and on CPAP, patient was on trilogy and BiPAP at home. Patient has ALS. on spontaneous breathing trial. Patient is alert and oriented but quadriplegic. Patient has severe bilateral pneumonia and is on cefepime and Vanco, ID is following. Patient has sacral decubitus ulcer and debridement was done by Dr. Flowers and there is no osteomyelitis. 03/05. Patient still on broad-spectrum antibiotics. Status post sacral decubitus ulcer debridements-no osteomyelitis. Patient is on AC 25/400/30% PEEP 5. No blood gas results today. 03/06. Plan for tracheostomy by surgery. Still remains intubated. Labs reviewed-sodium 150. Started on free water 200 every 8hr. trend sodium. 03/07: s/p trach placement today, patient placed back on mechanical ventilation with trach. Plan to resume tube feeding with NG tube. Continue to monitor vitals, monitor BMP. 03/08: Patient noted to have distended abdomen with low urinary output. Obtain bladder scan rule out urine retention, UA and urine culture, continue to follow clinically. 03/09: Patient noted to have low blood pressure with SBP as low as 70s. Ordered for 500 mils normal saline bolus. CT abdomen showed bladder outlet obstruction, urology consulted. 03/10: placed on drake by urology o/n, improved urine outpt. cont to monitor BMP. resuded TF - cont free water with TF. wean off from vent as tolerated. 03/11: Vitals stable. cont TF, wean off from vent as tolerated. start on 1/2 NS for hypernatremia - follow BMP 03/12: wean off vent as tolerated, plan for speech eval, cont Tf for now, cont iv fluid 03/13: unable to wean off from vent, unable to do speech therapy eval. will need PEG tube, cont supportive care for now, cont NG tube feeding 03/14: consulted GI for PEg placemnet, cont supportive care. remains on vent at night 03/15: Discussed with GI, plan for PEG tube placement possibly tomorrow. Continue supportive care and wean off from vent as tolerated. Hold Lovenox dose tonight. 03/16: family didnot consent for PEG placement yesterday. I spoke with the megan rodriguez today and she is now agreeable for PEG tube. I explained the necessity of the procedure with RN to the patient also and he nodded started on tube feeding, for the procedure. will cont supportive care. planned for PEG tube placement tomorrow. 03/17: s/p PEG placement today, patient tolerated well, cont supportive care 03/18: Started on tube feeding with new PEG tube, continue to wean off vent as tolerated 03/19: cont to monitor with supportive care, wean off vent as tolerated 03/20: Continue to wean off vent as tolerated -but failing weaning trial. Still requiring vent support at night. Currently on PEG tube for tube feed. 03/21. Pt with PSV trials with FiO@ 30%, PEEP 6, PS 10. Currently on PEG tube for tube feed. 03/22/2020. Continue PSV trials per pulmonary. Continue bronchodilators. Patient tolerating tube feedings. Continue Robinul for secretion control. 03/23/2020. Continue PSV trials per pulmonary. Continue bronchodilators. Continue Scopolamine and Robinul for secretion control. Trach care/airway management. Mobility protocols for pressure ulcer prophylaxis. LTAC evaluation per case management 03/24/2020. Continue PSV trials with current settings pressure support 10, PEEP 6 and FiO2 30%. Continue bronchodilators/nebulizer. Continue Scopolamine and Robinul for secretion control. Trach care/airway management. Mobility protocols for pressure ulcer prophylaxis. LTAC evaluation per case management 03/25/2020. Pulmonary to proceed with T-piece trials today. Continue bronchodilators/nebulizer. Continue Scopolamine and Robinul for secretion control. Trach care/airway management. Mobility protocols for pressure ulcer prophylaxis. 03/26/2020. Patient currently with PSV 10/6 at FiO2 of 30%. Continue weaning and T-piece trials per protocol. Continue bronchodilators/nebulizer. Continue Scopolamine and Robinul for secretion control. Trach care/airway management. Mobility protocols for pressure ulcer prophylaxis. Continue tube feeding with aspiration precautions. 03/27/2020. Patient currently with PSV 10/6 at FiO2 of 30%. Continue weaning and T-piece trials per protocol. Continue bronchodilators/nebulizer. Continue Scopolamine and Robinul for secretion control. Trach care/airway management. Mobility protocols for pressure ulcer prophylaxis. Continue tube feeding with aspiration precautions. 03/28. Had temp 100.7F. He has been off antibiotics. Will send blood culture, ua, urine culture and chest xray. Had chest pain overnight and trop was elevated as well. Cardiology to evaluate 03/29. Has back pain due to position. He mentions his chest pain is positional. Has no other complaints. Still on mechanical ventilation 03/30. No chest pain today. Labs reviewed. Discussed chest pain with cardiology and team advised no further work up at this time. Can follow up with cardiology in the office after hospitalization 03/31. Lidocaine patch for lower back pain. 04/01. Discharge planning underway. CM notes reviewed. Discussed with daughter 04/02. CM trying to arrange discharge. Continue PSV trials. Discussed with patients significant other 04/04/2020; CM is working for discharge arrangement. Continue PSV trials. 04/05/2020; patient was seen and evaluated this morning and no change from baseline. Continue with PSV trials. Follow with maintenance machine repairer for discharge planning. 04/06/2020;patient was seen and evaluated this morning and no change from baseline. Continue with PSV trials. Follow with maintenance machine repairer for discharge planning. 04/07/2020; patient was seen and evaluated this morning and no change from baseline. Continue with PSV trials. Follow with maintenance machine repairer for discharge planning. 04/08/2020; patient is vent dependent. Discharge is per maintenance machine repairer. 04/09/2020 patient is vent dependent, possible LTAC placement 04/10/2020; tracheostomy on vent, vent dependent pending LTAC placement 04/11/2020; clinically no change, tracheostomy on ventilatory support, wean as tolerated, awaiting placement 04/12/2020; remains on ventilatory support, unable to wean, patient wants to see a speech therapist for sound box However we cannot try that as long as he is on ventilatory support, once he is weaned off vent We will consult speech therapist, plan of care reviewed with the patient and his nurse 04/14/2020; clinically no change, on ventilatory support, complains of constipation, milk of magnesia Closely monitor the patient and adjust the management as needed 04/15/2020; patient has some oral thrush on the tongue, will give Magic mouthwash/nystatin swish and spit Wean off vent as tolerated 04/16 patient is alert and oriented, unable to comprehend what he is trying to tell but appears to complain of some pain, no acute events overnight, all interdisciplinary notes reviewed. Waiting for LTAC versus care home facility placement 04/17/2020. Continue supportive care with mechanical ventilation. Patient currently on AC mode rate 10, tidal volume 400 FiO2 30% with a PEEP of 6. Discharge planning per case management. 04/18/2020. Patient remains on mechanical ventilation AC mode rate 10, tidal volume 400, FiO2 30% and PEEP of 6. Continue spontaneous breathing trials as tolerated. Previously, patient was considered for discharge home with skilled staff providing care for 12 hours 7 days/week. Continue discussed with case management discharge planning. 04/19/20. Patient remains on mechanical ventilation AC mode rate 10, tidal volume 400, FiO2 30% and PEEP of 6. Continue spontaneous breathing trials as tolerated. 04/20/2020. Patient remains on mechanical ventilation AC mode rate 10, tidal volume 400, FiO2 30% and PEEP of 6. Continue spontaneous breathing trials as tolerated. 04/21/2020. Patient remains on mechanical ventilation AC mode rate 10, tidal volume 400, FiO2 30% and PEEP of 6. Continue tracheostomy care, secretion control and airway management. Continue spontaneous breathing trials as tolerated. 04/22/2020. Patient remains on mechanical ventilation AC mode rate 10, tidal volume 400, FiO2 30% and PEEP of 6. Continue tracheostomy care, secretion control and airway management. Continue spontaneous breathing trials as tolera milana. 04/23/2020. Patient on mechanical ventilation AC mode rate 18, tidal volume 450, FiO2 30% and PEEP of 6. Continue tracheostomy care, secretion control and airway management. Continue spontaneous breathing trials as tolerated. Continue Robinul and scopolamine for secretions. Continue baclofen. 04/24/2020. Patient remains on AC mode ventilation rate 10, tidal volume 400, FiO2 30% and PEEP of 6. Continue tracheostomy care, secretion control and airway management. Continue spontaneous breathing trials as tolerated. Continue Robinul and scopolamine for secretions. Continue baclofen. Continue Xanax for anxiety and Ambien for sleep. Await case management follow-up with regards to discharge planning. 04/25/2020. Patient remains on AC mode ventilation rate 10, tidal volume 400, FiO2 30% and PEEP of 6. Continue tracheostomy care, secretion control and airway management. Continue spontaneous breathing trials as tolerated. Continue Robinul and scopolamine for secretions. Continue baclofen. Continue Xanax for anxiety and Ambien for sleep. Await case management follow-up with regards to discharge planning. 04/26. Patient remains on AC mode ventilation rate 10, tidal volume 400, FiO2 30% and PEEP of 6. Continue tracheostomy care, secretion control and airway management. Continue spontaneous breathing trials as tolerated. Continue Robinul and scopolamine for secretions. Continue baclofen. Continue Xanax for anxiety and Ambien for sleep. Await case management follow-up with regards to discharge planning. 04/27. Patient remains on AC mode ventilation rate 10, tidal volume 400, FiO2 30% and PEEP of 6. Continue tracheostomy care, secretion control and airway management. Continue spontaneous breathing trials as tolerated. Continue Robinul and scopolamine for secretions. Continue baclofen. Continue Xanax for anxiety and Ambien for sleep. Await case management follow-up with regards to discharge planning. 04/28/20 no acute events overnight, remains vent dependent, cardiology and pulmonary notes reviewed 04/29 remains intubated via tracheostomy, no acute events 04/30 no acute events overnight, cardiology note reviewed, remains vent dependent, discharge planning per case management 05/01 stable. cardiology and pulmonary notes reviewed. D/C acu-checks 05/02 - todate: Clinically stable, CM working on placement. Continue supportive care. Subjective Date of service: 05/17/20 Principal diagnosis: Ac on Ch Hypercapnic & hypoxemic Resp Failure; Severe Sepsis; Jamar PNA; ALS Interval history: Patient seen and examined Remains on trach tube Discussed with RN at the bedside Vitals reviewed -BP stable Tolerating tube feeding with PEG tube Objective - Exam Narrative Exam: GENERAL: Awake. Intubated with trach tube HEAD: No signs of head trauma. EYES: Pupils are equal. Extraocular motions intact. EARS: Hearing grossly intact. MOUTH: Oropharynx is normal. NECK: No adenopathy, no JVD. CHEST: Coarse breath sounds bilaterally CARDIAC: Regular rate and rhythm. S1 and S2, without murmurs, gallops, or rubs. VASCULAR: No Edema. Peripheral pulses normal and equal in all extremities. ABDOMEN: Soft, non tender and nondistended. Bowel Sounds normal. PEG in place NEUROLOGIC EXAM: Awake, paraplegic SKIN: No obvious lesions - Constitutional Vitals: Vital Signs - 12hr 05/17/20 05/17/20 05/17/20 03:23 04:00 04:20 Temperature 98.1 F Pulse Rate 104 H 109 H 107 H Respiratory 25 H Rate Blood Pressure 135/91 138/99 O2 Sat by Pulse 98 97 Oximetry O2 Sat by Pulse 100 Oximetry [ Assessment] 05/17/20 05/17/20 05/17/20 05:00 06:00 06:05 Temperature Pulse Rate 93 H 107 H Respiratory 25 H 23 22 Rate Blood Pressure 137/95 135/102 O2 Sat by Pulse 99 100 Oximetry O2 Sat by Pulse Oximetry [ Assessment] 05/17/20 05/17/20 05/17/20 06:35 07:00 08:00 Temperature 98.2 F Pulse Rate 101 H 103 H Respiratory 20 22 21 Rate Blood Pressure 155/107 153/101 O2 Sat by Pulse 93 95 Oximetry O2 Sat by Pulse Oximetry [ Assessment] 05/17/20 05/17/20 05/17/20 08:35 10:10 13:13 Temperature Pulse Rate 110 H 107 H 98 H Respiratory 14 Rate Blood Pressure 153/101 127/74 118/87 O2 Sat by Pulse 97 98 Oximetry O2 Sat by Pulse Oximetry [ Assessment] - Labs CBC & Chem 7: 05/07/20 04:43 05/09/20 16:06 Labs: Abnormal lab results 05/16/20 Range/Units 23:51 POC Glucose 111 H (70-105) mg/dL HEART Score - HEART Score Troponin: Troponin T 0.181 ng/mL (0.00-0.029) H* 04/24/20 05:28
[2020-05-17] MEDS: ENOXAPARIN 40 MG/0.4 ML INJ SUB-Q SCH (22:50)
[2020-05-17] MEDS: SENNOSIDES 8.6 MG TAB PO SCH (22:51)
[2020-05-17] MEDS: D5W/0.9% NACL 1,000 ML IV SCH (22:52)
[2020-05-17] MEDS: ZOLPIDEM 5 MG TAB PO PRN (23:08)
[2020-05-18] MEDS: ALPRAZolam 0.5 MG TAB PO PRN ×2 (04:39→22:49)
[2020-05-18] MEDS: diphenhydrAMINE 25 MG/10 ML ORAL LIQUID FEEDTUBE PRN ×2 (04:40→09:39)
[2020-05-18] MEDS: GLYCOPYRROLATE 1 MG TAB PO SCH ×3 (08:56→20:00)
[2020-05-18] MEDS: MAGIC MOUTHWASH 30ML PO SCH ×3 (08:56→20:00)
[2020-05-18] MEDS: LANSOPRAZOLE 30 MG SOLUTAB FEEDTUBE SCH (09:40)
[2020-05-18] MEDS: BACLOFEN 10 MG TAB PO SCH ×2 (09:40→22:47)
[2020-05-18] MEDS: TAMSULOSIN 0.4 MG CAP PO SCH (09:40)
[2020-05-18] MEDS: DOCUSATE SODIUM 100 MG/10 ML ORAL LIQD FEEDTUBE SCH ×2 (09:40→22:45)
[2020-05-18] MEDS: ASPIRIN EC 81 MG TAB PO SCH (09:40)
[2020-05-18] MEDS: PREGABALIN 75 MG CAP PO SCH ×2 (09:41→22:48)
[2020-05-18] MEDS: METOPROLOL TARTRATE 25 MG TAB PO SCH ×2 (09:41→22:47)
[2020-05-18] MEDS: LIDOCAINE 5% 1 EACH PATCH TD SCH (10:02)
[2020-05-18] MEDS: MORPHINE 2 MG/1 ML INJ IV PRN ×2 (11:02→22:46)
--- NOTE | 2020-05-18 15:10 | Progress Note ---
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 Respiratory Failure Severe Sepsis with Shock Bilateral Pneumonia (Possible aspiration) History of ALS on Trilogy Oropharyngeal Dysphagia PUI-COVID Acute toxic metabolic encephalopathy Elevated D-dimer Elevated troponin possibly type 2 ischemia - no new issues, discharge planning still ongoing for home ventilator - continue daily SBT's as tolerated; t-piece trial attempts as tolerated (PSV if fails) - remains ventilator dependent; refusing SBT's at time and not tolerating t-piec e when tried - continue care as below; - continue home meds re: chronic pain (Baclofen, Lyrica) - repeat CXR prn +/- bronchoscopy for mucus plugging / large volume atelectasis - continue psychoactive meds for anxiolysis - continue Robinul & scopolamine for secretion control - prn electrolytes and optimize K+ & Mg 2+ for best respiratory muscle function - wound care per RN/WCN - wean supplemental oxygen for target O2 sat's > 90% acutely - bronchodilators with pulmonary hygiene per RT - VAP bundle addressed - continue lung protective strategies - continue bronchodilators with pulmonary hygiene per RT - wean per pulmonary driven protocols otherwise - sedation prn for target RASS 0 to -1 - s/p empiric antiinfectives per ID rec's (Rocephin and Zithromax) - s/p COVID-19 isolation (Airborne & Contact) - s/p Dexamethasone - enteral nutrition at goal rate as tolerated - accuchecks with glycemic control per SSI (While critically ill target blood glucose of 140-180 mg/dL; avoid hypoglycemia) - avoid nephrotoxins, renally dose all medications - avoid benzodiazepine's, reduce the possibility of delirium - prn analgesia per CPOT score - Maintenance of sleep-wake cycle, avoid delirium - aspiration precautions - G.I. & VTE prophylaxis - PT/OT/ROM exercises - mobility protocols for pressure ulcer prophylaxis - Monitor hemodynamics closely - continue other care per attending / other consultants - discharge planning ongoing concurrently .... Re-evaluate in am & prn CONDITION: CRITICAL PROGNOSIS: GUARDED CODE STATUS: FULL CODE The high probability of a clinically significant, sudden or life-threatening deterioration of the [respiratory, cardiovascular & neurologic] system(s) required my full and direct attention, intervention and personal management. The aggregate critical care time was [32] minutes without overlap. Time includes spent on; [x] Data Review and interpretation [x] Patient assessment and monitoring of vital signs [x] Documentation [x] Medication orders and management Subjective Date of service: 05/18/20 Principal diagnosis: Ac on Ch Hypercapnic & hypoxemic Resp Failure; Severe Sep sis; Jamar PNA; ALS Interval history: Patient is seen today for: Acute on Chronic Hypercapnic & hypoxemic Respiratory Failure; Severe Sepsis with Shock; Bilateral Pneumonia (Possible aspiration); History of ALS on Trilogy; PUI-COVID; Acute toxic metabolic encephalopathy Seen and examined at bedside; 24hour events reviewed; nursing and respiratory care staff consulted; no adverse overnight events reported to me; resting in bed; remains on MVS; no N/V/F/C; no chest pain Objective Vital Signs - 12hr 05/18/20 05/18/20 05/18/20 04:00 04:01 04:36 Temperature 98.3 F Pulse Rate 101 H 103 H 107 H Respiratory 24 Rate Blood Pressure 156/84 156/84 O2 Sat by Pulse 94 98 Oximetry O2 Sat by Pulse Oximetry [ Assessment] 05/18/20 05/18/20 05/18/20 05:01 06:00 07:00 Temperature Pulse Rate 106 H 93 H 101 H Respiratory 24 20 22 Rate Blood Pressure 156/84 150/98 129/86 O2 Sat by Pulse 94 94 94 Oximetry O2 Sat by Pulse Oximetry [ Assessment] 05/18/20 05/18/20 05/18/20 08:00 09:00 10:01 Temperature 98.0 F Pulse Rate 111 H 101 H 112 H Respiratory 28 H 27 H 26 H Rate Blood Pressure 145/99 153/97 150/90 O2 Sat by Pulse 96 94 95 Oximetry O2 Sat by Pulse 96 Oximetry [ Assessment] 05/18/20 05/18/20 05/18/20 11:01 11:07 12:00 Temperature 98.2 F Pulse Rate 106 H 99 H 103 H Respiratory 23 25 H 26 H Rate Blood Pressure 110/73 110/79 93/61 O2 Sat by Pulse 94 96 98 Oximetry O2 Sat by Pulse Oximetry [ Assessment] Constitutional: no acute distress, other (thin middle aged male with mildly increased respiratory effort at rest on MVS) Eyes: non-icteric ENT: oropharynx moist, other (S/P Tracheostomy) Neck: supple, no lymphadenopathy, no JVD Effort: mildly labored Ascultation: Bilateral: diminished breath sounds, rhonchi (scant in bases) Percussion: Bilateral: not dull Cardiovascular: regular rate and rhythm, other (S1,S2, no murmurs) Gastrointestinal: normoactive bowel sounds, soft, non-tender, non-distended Integumentary: normal, decubitus ulcer (sacral / gluteal) Extremities: no cyanosis, no edema, pulses normal, other (atrophic looking limbs) Neurologic: pupils equal and round, other (motor strength in extremities 1-2/5, awake, alert, mouths words to make needs known) Psychiatric: depressed CBC and BMP: 05/21/20 04:18 05/21/20 04:18 ABG, PT/INR, D-dimer: ABG ABG pH 7.371 (7.320-7.450) 03/08/20 12:34 POC ABG pCO2 63.1 mmHg (32.0-48.0) H 03/08/20 12:34 ABG pCO2 60.1 mm Hg 03/06/20 04:34 POC ABG pO2 90.5 mmHg (83-108) 03/08/20 12:34 ABG pO2 88.6 mm Hg (80.0-90.0) 03/06/20 04:34 POC ABG HCO3 35.7 03/08/20 12:34 ABG O2 Saturation 97.0 % (95.0-99.0) 03/06/20 04:34 PT/INR, D-dimer PT 15.6 Sec. (12.2-14.9) H 02/24/20 09:19 INR 1.21 (0.87-1.13) H 02/24/20 09:19 D-Dimer 1311.96 ng/mlDDU (0-234) H 02/24/20 09:19 Abnormal lab findings: Abnormal Labs 02/24/20 02/24/20 02/24/20 09:19 09:19 09:19 WBC 20.2 H RBC 5.05 H Hgb Hct MCV MCH RDW 15.3 H Plt Count Lymph % (Auto) [place] % (Auto) Lymph # (Auto) [place] # (Auto) Seg Neutrophils % Seg Neuts % (Manual) 86.0 H Lymphocytes % (Manual) 1.0 L Monocytes % (Manual) Basophils % (Manual) Seg Neutrophils # Seg Neutrophils # Man 17.4 H Lymphocytes # (Manual) 0.2 L Monocytes # (Manual) Eosinophils # (Manual) Basophils # (Manual) PT 15.6 H INR 1.21 H D-Dimer 1311.96 H ABG pH POC ABG pCO2 POC ABG pO2 ABG pO2 ABG HCO3 ABG O2 Saturation ABG Base Excess ABG Hemoglobin ABG Oxyhemoglobin ABG Potassium ABG Glucose Oxyhemoglobin Carboxyhemoglobin Sodium 135 L Potassium 3.2 L Chloride 92.2 L Carbon Dioxide BUN 6 L Creatinine < 0.2 L Glucose 124 H POC Glucose Calcium Ferritin Total Bilirubin 2.30 H Alkaline Phosphatase 132 H Lactate Dehydrogenase Total Creatine Kinase CK-MB (CK-2) Rel Index Troponin T 0.080 H C-Reactive Protein Total Protein Albumin 3.6 L Prealbumin LDL Cholesterol Direct 41 L HDL Cholesterol Arterial Blood Glucose Arterial Blood Ionized Calcium Urine WBC (Auto) 02/24/20 02/24/20 02/24/20 09:19 09:58 10:01 WBC RBC Hgb Hct MCV MCH RDW Plt Count Lymph % (Auto) [place] % (Auto) Lymph # (Auto) [place] # (Auto) Seg Neutrophils % Seg Neuts % (Manual) Lymphocytes % (Manual) Monocytes % (Manual) Basophils % (Manual) Seg Neutrophils # Seg Neutrophils # Man Lymphocytes # (Manual) Monocytes # (Manual) Eosinophils # (Manual) Basophils # (Manual) PT INR D-Dimer ABG pH 7.176 L* POC ABG pCO2 POC ABG pO2 ABG pO2 91.2 H ABG HCO3 ABG O2 Saturation ABG Base Excess -4.6 L ABG Hemoglobin ABG Oxyhemoglobin ABG Potassium ABG Glucose Oxyhemoglobin 92.6 L Carboxyhemoglobin Sodium Potassium Chloride Carbon Dioxide BUN Creatinine Glucose POC Glucose Calcium Ferritin 1715.0 H Total Bilirubin Alkaline Phosphatase Lactate Dehydrogenase 303 H Total Creatine Kinase CK-MB (CK-2) Rel Index Troponin T C-Reactive Protein 26.10 H Total Protein Albumin Prealbumin LDL Cholesterol Direct HDL Cholesterol Arterial Blood Glucose Arterial Blood Ionized Calcium Urine WBC (Auto) 02/24/20 02/24/20 02/24/20 11:52 13:45 19:35 WBC RBC Hgb Hct MCV MCH RDW Plt Count Lymph % (Auto) [place] % (Auto) Lymph # (Auto) [place] # (Auto) Seg Neutrophils % Seg Neuts % (Manual) Lymphocytes % (Manual) Monocytes % (Manual) Basophils % (Manual) Seg Neutrophils # Seg Neutrophils # Man Lymphocytes # (Manual) Monocytes # (Manual) Eosinophils # (Manual) Basophils # (Manual) PT INR D-Dimer ABG pH 7.051 L* 7.300 L POC ABG pCO2 POC ABG pO2 ABG pO2 94.7 H 75.1 L ABG HCO3 18.0 L ABG O2 Saturation 93.5 L ABG Base Excess -6.8 L -7.8 L ABG Hemoglobin 13.2 L 11.9 L ABG Oxyhemoglobin ABG Potassium ABG Glucose Oxyhemoglobin 91.0 L 92.7 L Carboxyhemoglobin Sodium Potassium Chloride Carbon Dioxide BUN Creatinine Glucose POC Glucose Calcium Ferritin Total Bilirubin Alkaline Phosphatase Lactate Dehydrogenase Total Creatine Kinase CK-MB (CK-2) Rel Index Troponin T 0.034 H D C-Reactive Protein Total Protein Albumin Prealbumin LDL Cholesterol Direct HDL Cholesterol Arterial Blood Glucose Arterial Blood Ionized Calcium Urine WBC (Auto) 02/25/20 02/25/20 02/25/20 04:00 04:00 12:26 WBC 22.9 H RBC Hgb Hct MCV 83 L MCH 27 L RDW Plt Count 468 H Lymph % (Auto) [place] % (Auto) Lymph # (Auto) [place] # (Auto) Seg Neutrophils % Seg Neuts % (Manual) 89.0 H Lymphocytes % (Manual) 7.0 L Monocytes % (Manual) Basophils % (Manual) Seg Neutrophils # Seg Neutrophils # Man 20.4 H Lymphocytes # (Manual) Monocytes # (Manual) Eosinophils # (Manual) Basophils # (Manual) PT INR D-Dimer ABG pH POC ABG pCO2 POC ABG pO2 ABG pO2 ABG HCO3 ABG O2 Saturation ABG Base Excess ABG Hemoglobin ABG Oxyhemoglobin ABG Potassium 2.6 L ABG Glucose 142 H Oxyhemoglobin Carboxyhemoglobin Sodium Potassium 3.2 L Chloride Carbon Dioxide 18 L BUN Creatinine 0.2 L Glucose 114 H POC Glucose Calcium Ferritin Total Bilirubin Alkaline Phosphatase Lactate Dehydrogenase Total Creatine Kinase CK-MB (CK-2) Rel Index Troponin T C-Reactive Protein Total Protein Albumin 3.5 L Prealbumin LDL Cholesterol Direct HDL Cholesterol Arterial Blood Glucose 142 H Arterial Blood Ionized Calcium Urine WBC (Auto) 02/26/20 02/26/20 02/26/20 15:58 17:00 23:43 WBC RBC Hgb Hct MCV MCH RDW Plt Count Lymph % (Auto) [place] % (Auto) Lymph # (Auto) [place] # (Auto) Seg Neutrophils % Seg Neuts % (Manual) Lymphocytes % (Manual) Monocytes % (Manual) Basophils % (Manual) Seg Neutrophils # Seg Neutrophils # Man Lymphocytes # (Manual) Monocytes # (Manual) Eosinophils # (Manual) Basophils # (Manual) PT INR D-Dimer ABG pH 7.502 H POC ABG pCO2 POC ABG pO2 213.6 H ABG pO2 ABG HCO3 ABG O2 Saturation ABG Base Excess ABG Hemoglobin ABG Oxyhemoglobin 99.2 H ABG Potassium 2.9 L ABG Glucose 160 H Oxyhemoglobin Carboxyhemoglobin 0.4 L Sodium Potassium Chloride Carbon Dioxide BUN Creatinine Glucose POC Glucose 189 H 120 H Calcium Ferritin Total Bilirubin Alkaline Phosphatase Lactate Dehydrogenase Total Creatine Kinase CK-MB (CK-2) Rel Index Troponin T C-Reactive Protein Total Protein Albumin Prealbumin LDL Cholesterol Direct HDL Cholesterol Arterial Blood Glucose 160 H Arterial Blood Ionized Calcium 4.5 L Urine WBC (Auto) 02/27/20 02/27/20 02/27/20 05:00 07:04 17:45 WBC RBC Hgb Hct MCV MCH RDW Plt Count Lymph % (Auto) [place] % (Auto) Lymph # (Auto) [place] # (Auto) Seg Neutrophils % Seg Neuts % (Manual) Lymphocytes % (Manual) Monocytes % (Manual) Basophils % (Manual) Seg Neutrophils # Seg Neutrophils # Man Lymphocytes # (Manual) Monocytes # (Manual) Eosinophils # (Manual) Basophils # (Manual) PT INR D-Dimer ABG pH 7.524 H POC ABG pCO2 POC ABG pO2 ABG pO2 ABG HCO3 ABG O2 Saturation ABG Base Excess ABG Hemoglobin ABG Oxyhemoglobin ABG Potassium 3.0 L ABG Glucose 143 H Oxyhemoglobin Carboxyhemoglobin Sodium Potassium Chloride Carbon Dioxide BUN Creatinine Glucose POC Glucose 154 H 175 H Calcium Ferritin Total Bilirubin Alkaline Phosphatase Lactate Dehydrogenase Total Creatine Kinase CK-MB (CK-2) Rel Index Troponin T C-Reactive Protein Total Protein Albumin Prealbumin LDL Cholesterol Direct HDL Cholesterol Arterial Blood Glucose 143 H Arterial Blood Ionized Calcium Urine WBC (Auto) 02/27/20 02/28/20 02/28/20 Unknown 00:21 04:15 WBC 18.7 H RBC Hgb Hct MCV MCH RDW Plt Count Lymph % (Auto) 8.7 L [place] % (Auto) Lymph # (Auto) [place] # (Auto) 1.2 H Seg Neutrophils % 84.6 H Seg Neuts % (Manual) Lymphocytes % (Manual) Monocytes % (Manual) Basophils % (Manual) Seg Neutrophils # 15.9 H Seg Neutrophils # Man Lymphocytes # (Manual) Monocytes # (Manual) Eosinophils # (Manual) Basophils # (Manual) PT INR D-Dimer ABG pH POC ABG pCO2 POC ABG pO2 ABG pO2 ABG HCO3 ABG O2 Saturation ABG Base Excess ABG Hemoglobin ABG Oxyhemoglobin ABG Potassium ABG Glucose Oxyhemoglobin Carboxyhemoglobin Sodium Potassium 2.9 L* Chloride Carbon Dioxide 33 H D BUN Creatinine < 0.2 L Glucose 157 H POC Glucose 134 H Calcium Ferritin Total Bilirubin Alkaline Phosphatase Lactate Dehydrogenase Total Creatine Kinase CK-MB (CK-2) Rel Index Troponin T C-Reactive Protein Total Protein Albumin Prealbumin LDL Cholesterol Direct HDL Cholesterol Arterial Blood Glucose Arterial Blood Ionized Calcium Urine WBC (Auto) 02/28/20 02/28/20 02/28/20 04:15 05:16 05:39 WBC RBC Hgb Hct MCV MCH RDW Plt Count Lymph % (Auto) [place] % (Auto) Lymph # (Auto) [place] # (Auto) Seg Neutrophils % Seg Neuts % (Manual) Lymphocytes % (Manual) Monocytes % (Manual) Basophils % (Manual) Seg Neutrophils # Seg Neutrophils # Man Lymphocytes # (Manual) Monocytes # (Manual) Eosinophils # (Manual) Basophils # (Manual) PT INR D-Dimer ABG pH POC ABG pCO2 POC ABG pO2 ABG pO2 142.9 H ABG HCO3 34.1 H ABG O2 Saturation ABG Base Excess 8.3 H ABG Hemoglobin ABG Oxyhemoglobin ABG Potassium ABG Glucose Oxyhemoglobin Carboxyhemoglobin Sodium 151 H Potassium Chloride Carbon Dioxide 32 H BUN Creatinine 0.2 L Glucose 167 H POC Glucose 138 H Calcium Ferritin Total Bilirubin Alkaline Phosphatase Lactate Dehydrogenase Total Creatine Kinase CK-MB (CK-2) Rel Index Troponin T C-Reactive Protein Total Protein Albumin Prealbumin LDL Cholesterol Direct HDL Cholesterol Arterial Blood Glucose Arterial Blood Ionized Calcium Urine WBC (Auto) 02/28/20 02/28/20 02/28/20 11:05 11:33 12:54 WBC RBC Hgb Hct MCV MCH RDW Plt Count Lymph % (Auto) [place] % (Auto) Lymph # (Auto) [place] # (Auto) Seg Neutrophils % Seg Neuts % (Manual) Lymphocytes % (Manual) Monocytes % (Manual) Basophils % (Manual) Seg Neutrophils # Seg Neutrophils # Man Lymphocytes # (Manual) Monocytes # (Manual) Eosinophils # (Manual) Basophils # (Manual) PT INR D-Dimer ABG pH POC ABG pCO2 POC ABG pO2 ABG pO2 ABG HCO3 ABG O2 Saturation ABG Base Excess ABG Hemoglobin ABG Oxyhemoglobin ABG Potassium ABG Glucose Oxyhemoglobin Carboxyhemoglobin Sodium Potassium Chloride Carbon Dioxide BUN Creatinine Glucose POC Glucose 160 H Calcium Ferritin Total Bilirubin Alkaline Phosphatase Lactate Dehydrogenase Total Creatine Kinase CK-MB (CK-2) Rel Index Troponin T C-Reactive Protein 4.70 H Total Protein Albumin Prealbumin 0.090 L LDL Cholesterol Direct HDL Cholesterol Arterial Blood Glucose Arterial Blood Ionized Calcium Urine WBC (Auto) 02/28/20 02/29/20 02/29/20 17:34 00:44 04:05 WBC 19.6 H RBC Hgb Hct MCV MCH 27 L RDW 15.4 H Plt Count Lymph % (Auto) [place] % (Auto) Lymph # (Auto) [place] # (Auto) Seg Neutrophils % Seg Neuts % (Manual) 86.0 H Lymphocytes % (Manual) 7.0 L Monocytes % (Manual) Basophils % (Manual) Seg Neutrophils # Seg Neutrophils # Man 16.9 H Lymphocytes # (Manual) Monocytes # (Manual) 1.2 H Eosinophils # (Manual) Basophils # (Manual) PT INR D-Dimer ABG pH POC ABG pCO2 POC ABG pO2 ABG pO2 ABG HCO3 ABG O2 Saturation ABG Base Excess ABG Hemoglobin ABG Oxyhemoglobin ABG Potassium ABG Glucose Oxyhemoglobin Carboxyhemoglobin Sodium Potassium Chloride Carbon Dioxide BUN Creatinine Glucose POC Glucose 136 H 156 H Calcium Ferritin Total Bilirubin Alkaline Phosphatase Lactate Dehydrogenase Total Creatine Kinase CK-MB (CK-2) Rel Index Troponin T C-Reactive Protein Total Protein Albumin Prealbumin LDL Cholesterol Direct HDL Cholesterol Arterial Blood Glucose Arterial Blood Ionized Calcium Urine WBC (Auto) 02/29/20 02/29/20 02/29/20 04:05 05:14 05:33 WBC RBC Hgb Hct MCV MCH RDW Plt Count Lymph % (Auto) [place] % (Auto) Lymph # (Auto) [place] # (Auto) Seg Neutrophils % Seg Neuts % (Manual) Lymphocytes % (Manual) Monocytes % (Manual) Basophils % (Manual) Seg Neutrophils # Seg Neutrophils # Man Lymphocytes # (Manual) Monocytes # (Manual) Eosinophils # (Manual) Basophils # (Manual) PT INR D-Dimer ABG pH POC ABG pCO2 54.3 H POC ABG pO2 124.8 H ABG pO2 ABG HCO3 ABG O2 Saturation ABG Base Excess ABG Hemoglobin ABG Oxyhemoglobin ABG Potassium ABG Glucose 185 H Oxyhemoglobin Carboxyhemoglobin Sodium 148 H Potassium Chloride Carbon Dioxide 33 H BUN Creatinine < 0.2 L Glucose 173 H POC Glucose 152 H Calcium Ferritin Total Bilirubin Alkaline Phosphatase Lactate Dehydrogenase Total Creatine Kinase CK-MB (CK-2) Rel Index Troponin T C-Reactive Protein Total Protein Albumin Prealbumin LDL Cholesterol Direct HDL Cholesterol Arterial Blood Glucose 185 H Arterial Blood Ionized Calcium Urine WBC (Auto) 03/01/20 03/01/20 03/01/20 00:00 03:45 04:33 WBC 23.1 H RBC Hgb Hct MCV MCH 27 L RDW 15.3 H Plt Count Lymph % (Auto) [place] % (Auto) Lymph # (Auto) [place] # (Auto) Seg Neutrophils % Seg Neuts % (Manual) 92.0 H Lymphocytes % (Manual) 6.0 L Monocytes % (Manual) Basophils % (Manual) Seg Neutrophils # Seg Neutrophils # Man 21.3 H Lymphocytes # (Manual) Monocytes # (Manual) Eosinophils # (Manual) 0.5 H Basophils # (Manual) PT INR D-Dimer ABG pH 7.492 H POC ABG pCO2 POC ABG pO2 ABG pO2 157.1 H ABG HCO3 32.3 H ABG O2 Saturation ABG Base Excess 8.1 H ABG Hemoglobin 13.2 L ABG Oxyhemoglobin ABG Potassium ABG Glucose Oxyhemoglobin Carboxyhemoglobin Sodium Potassium Chloride Carbon Dioxide BUN Creatinine Glucose POC Glucose 109 H Calcium Ferritin Total Bilirubin Alkaline Phosphatase Lactate Dehydrogenase Total Creatine Kinase CK-MB (CK-2) Rel Index Troponin T C-Reactive Protein Total Protein Albumin Prealbumin LDL Cholesterol Direct HDL Cholesterol Arterial Blood Glucose Arterial Blood Ionized Calcium Urine WBC (Auto) 03/01/20 03/01/20 03/01/20 04:33 05:29 12:32 WBC RBC Hgb Hct MCV MCH RDW Plt Count Lymph % (Auto) [place] % (Auto) Lymph # (Auto) [place] # (Auto) Seg Neutrophils % Seg Neuts % (Manual) Lymphocytes % (Manual) Monocytes % (Manual) Basophils % (Manual) Seg Neutrophils # Seg Neutrophils # Man Lymphocytes # (Manual) Monocytes # (Manual) Eosinophils # (Manual) Basophils # (Manual) PT INR D-Dimer ABG pH POC ABG pCO2 POC ABG pO2 ABG pO2 ABG HCO3 ABG O2 Saturation ABG Base Excess ABG Hemoglobin ABG Oxyhemoglobin ABG Potassium ABG Glucose Oxyhemoglobin Carboxyhemoglobin Sodium 146 H Potassium Chloride Carbon Dioxide 32 H BUN Creatinine < 0.2 L Glucose 120 H POC Glucose 120 H 128 H Calcium Ferritin Total Bilirubin Alkaline Phosphatase Lactate Dehydrogenase Total Creatine Kinase CK-MB (CK-2) Rel Index Troponin T C-Reactive Protein Total Protein Albumin Prealbumin LDL Cholesterol Direct HDL Cholesterol Arterial Blood Glucose Arterial Blood Ionized Calcium Urine WBC (Auto) 03/01/20 03/01/20 03/02/20 17:38 23:46 06:13 WBC RBC Hgb Hct MCV MCH RDW Plt Count Lymph % (Auto) [place] % (Auto) Lymph # (Auto) [place] # (Auto) Seg Neutrophils % Seg Neuts % (Manual) Lymphocytes % (Manual) Monocytes % (Manual) Basophils % (Manual) Seg Neutrophils # Seg Neutrophils # Man Lymphocytes # (Manual) Monocytes # (Manual) Eosinophils # (Manual) Basophils # (Manual) PT INR D-Dimer ABG pH POC ABG pCO2 POC ABG pO2 ABG pO2 ABG HCO3 ABG O2 Saturation ABG Base Excess ABG Hemoglobin ABG Oxyhemoglobin ABG Potassium ABG Glucose Oxyhemoglobin Carboxyhemoglobin Sodium Potassium Chloride Carbon Dioxide BUN Creatinine Glucose POC Glucose 114 H 121 H 120 H Calcium Ferritin Total Bilirubin Alkaline Phosphatase Lactate Dehydrogenase Total Creatine Kinase CK-MB (CK-2) Rel Index Troponin T C-Reactive Protein Total Protein Albumin Prealbumin LDL Cholesterol Direct HDL Cholesterol Arterial Blood Glucose Arterial Blood Ionized Calcium Urine WBC (Auto) 03/02/20 03/02/20 03/03/20 09:47 09:47 10:21 WBC 23.6 H RBC Hgb Hct MCV MCH RDW 15.3 H Plt Count 494 H Lymph % (Auto) [place] % (Auto) Lymph # (Auto) [place] # (Auto) Seg Neutrophils % Seg Neuts % (Manual) 85.0 H Lymphocytes % (Manual) 6.0 L Monocytes % (Manual) Basophils % (Manual) Seg Neutrophils # Seg Neutrophils # Man 20.1 H Lymphocytes # (Manual) Monocytes # (Manual) 1.7 H Eosinophils # (Manual) Basophils # (Manual) PT INR D-Dimer ABG pH POC ABG pCO2 POC ABG pO2 ABG pO2 ABG HCO3 ABG O2 Saturation ABG Base Excess ABG Hemoglobin ABG Oxyhemoglobin ABG Potassium 3.3 L ABG Glucose 158 H Oxyhemoglobin Carboxyhemoglobin Sodium Potassium Chloride Carbon Dioxide BUN Creatinine < 0.2 L Glucose 177 H POC Glucose Calcium Ferritin Total Bilirubin Alkaline Phosphatase Lactate Dehydrogenase Total Creatine Kinase CK-MB (CK-2) Rel Index Troponin T C-Reactive Protein Total Protein Albumin Prealbumin LDL Cholesterol Direct HDL Cholesterol Arterial Blood Glucose 158 H Arterial Blood Ionized Calcium Urine WBC (Auto) 03/03/20 03/04/20 03/04/20 21:30 00:00 12:23 WBC RBC Hgb Hct MCV MCH RDW Plt Count Lymph % (Auto) [place] % (Auto) Lymph # (Auto) [place] # (Auto) Seg Neutrophils % Seg Neuts % (Manual) Lymphocytes % (Manual) Monocytes % (Manual) Basophils % (Manual) Seg Neutrophils # Seg Neutrophils # Man Lymphocytes # (Manual) Monocytes # (Manual) Eosinophils # (Manual) Basophils # (Manual) PT INR D-Dimer ABG pH 7.328 L POC ABG pCO2 POC ABG pO2 ABG pO2 68.4 L ABG HCO3 35.0 H ABG O2 Saturation 93.9 L ABG Base Excess 6.8 H ABG Hemoglobin 12.7 L ABG Oxyhemoglobin ABG Potassium ABG Glucose Oxyhemoglobin 91.9 L Carboxyhemoglobin Sodium Potassium Chloride Carbon Dioxide BUN Creatinine Glucose POC Glucose 187 H 163 H Calcium Ferritin Total Bilirubin Alkaline Phosphatase Lactate Dehydrogenase Total Creatine Kinase CK-MB (CK-2) Rel Index Troponin T C-Reactive Protein Total Protein Albumin Prealbumin LDL Cholesterol Direct HDL Cholesterol Arterial Blood Glucose Arterial Blood Ionized Calcium Urine WBC (Auto) 03/04/20 03/04/20 03/05/20 18:15 21:30 06:02 WBC RBC Hgb Hct MCV MCH RDW Plt Count Lymph % (Auto) [place] % (Auto) Lymph # (Auto) [place] # (Auto) Seg Neutrophils % Seg Neuts % (Manual) Lymphocytes % (Manual) Monocytes % (Manual) Basophils % (Manual) Seg Neutrophils # Seg Neutrophils # Man Lymphocytes # (Manual) Monocytes # (Manual) Eosinophils # (Manual) Basophils # (Manual) PT INR D-Dimer ABG pH 7.297 L POC ABG pCO2 POC ABG pO2 ABG pO2 ABG HCO3 41.0 H ABG O2 Saturation ABG Base Excess 11.0 H ABG Hemoglobin 13.1 L ABG Oxyhemoglobin ABG Potassium ABG Glucose Oxyhemoglobin 94.5 L Carboxyhemoglobin Sodium Potassium Chloride Carbon Dioxide BUN Creatinine Glucose POC Glucose 192 H 127 H Calcium Ferritin Total Bilirubin Alkaline Phosphatase Lactate Dehydrogenase Total Creatine Kinase CK-MB (CK-2) Rel Index Troponin T C-Reactive Protein Total Protein Albumin Prealbumin LDL Cholesterol Direct HDL Cholesterol Arterial Blood Glucose Arterial Blood Ionized Calcium Urine WBC (Auto) 03/05/20 03/05/20 03/06/20 12:09 16:42 00:24 WBC RBC Hgb Hct MCV MCH RDW Plt Count Lymph % (Auto) [place] % (Auto) Lymph # (Auto) [place] # (Auto) Seg Neutrophils % Seg Neuts % (Manual) Lymphocytes % (Manual) Monocytes % (Manual) Basophils % (Manual) Seg Neutrophils # Seg Neutrophils # Man Lymphocytes # (Manual) Monocytes # (Manual) Eosinophils # (Manual) Basophils # (Manual) PT INR D-Dimer ABG pH POC ABG pCO2 POC ABG pO2 ABG pO2 ABG HCO3 ABG O2 Saturation ABG Base Excess ABG Hemoglobin ABG Oxyhemoglobin ABG Potassium ABG Glucose Oxyhemoglobin Carboxyhemoglobin Sodium Potassium Chloride Carbon Dioxide BUN Creatinine Glucose POC Glucose 147 H 114 H 134 H Calcium Ferritin Total Bilirubin Alkaline Phosphatase Lactate Dehydrogenase Total Creatine Kinase CK-MB (CK-2) Rel Index Troponin T C-Reactive Protein Total Protein Albumin Prealbumin LDL Cholesterol Direct HDL Cholesterol Arterial Blood Glucose Arterial Blood Ionized Calcium Urine WBC (Auto) 03/06/20 03/06/20 03/06/20 04:34 05:53 06:08 WBC 25.4 H RBC Hgb 10.5 L Hct 32.7 L MCV MCH 27 L RDW 15.3 H Plt Count 634 H Lymph % (Auto) [place] % (Auto) Lymph # (Auto) [place] # (Auto) Seg Neutrophils % Seg Neuts % (Manual) 88.0 H Lymphocytes % (Manual) 2.0 L Monocytes % (Manual) 8.0 H Basophils % (Manual) Seg Neutrophils # Seg Neutrophils # Man 22.4 H Lymphocytes # (Manual) 0.5 L Monocytes # (Manual) 2.0 H Eosinophils # (Manual) Basophils # (Manual) PT INR D-Dimer ABG pH POC ABG pCO2 POC ABG pO2 ABG pO2 ABG HCO3 37.9 H ABG O2 Saturation ABG Base Excess 11.4 H ABG Hemoglobin 10.6 L ABG Oxyhemoglobin ABG Potassium ABG Glucose Oxyhemoglobin 94.7 L Carboxyhemoglobin Sodium Potassium Chloride Carbon Dioxide BUN Creatinine Glucose POC Glucose 135 H Calcium Ferritin Total Bilirubin Alkaline Phosphatase Lactate Dehydrogenase Total Creatine Kinase CK-MB (CK-2) Rel Index Troponin T C-Reactive Protein Total Protein Albumin Prealbumin LDL Cholesterol Direct HDL Cholesterol Arterial Blood Glucose Arterial Blood Ionized Calcium Urine WBC (Auto) 03/06/20 03/06/20 03/06/20 06:08 12:19 19:10 WBC RBC Hgb Hct MCV MCH RDW Plt Count Lymph % (Auto) [place] % (Auto) Lymph # (Auto) [place] # (Auto) Seg Neutrophils % Seg Neuts % (Manual) Lymphocytes % (Manual) Monocytes % (Manual) Basophils % (Manual) Seg Neutrophils # Seg Neutrophils # Man Lymphocytes # (Manual) Monocytes # (Manual) Eosinophils # (Manual) Basophils # (Manual) PT INR D-Dimer ABG pH POC ABG pCO2 POC ABG pO2 ABG pO2 ABG HCO3 ABG O2 Saturation ABG Base Excess ABG Hemoglobin ABG Oxyhemoglobin ABG Potassium ABG Glucose Oxyhemoglobin Carboxyhemoglobin Sodium 150 H D Potassium Chloride Carbon Dioxide 39 H D BUN 23 H Creatinine < 0.2 L Glucose 144 H POC Glucose 169 H 152 H Calcium Ferritin Total Bilirubin Alkaline Phosphatase Lactate Dehydrogenase Total Creatine Kinase CK-MB (CK-2) Rel Index Troponin T C-Reactive Protein Total Protein Albumin 3.3 L Prealbumin LDL Cholesterol Direct HDL Cholesterol Arterial Blood Glucose Arterial Blood Ionized Calcium Urine WBC (Auto) 03/06/20 03/07/20 03/07/20 23:58 04:25 04:25 WBC 22.1 H RBC Hgb 10.9 L Hct 32.9 L MCV MCH RDW 15.5 H Plt Count 739 H Lymph % (Auto) 7.8 L [place] % (Auto) Lymph # (Auto) [place] # (Auto) 1.3 H Seg Neutrophils % 85.5 H Seg Neuts % (Manual) Lymphocytes % (Manual) Monocytes % (Manual) Basophils % (Manual) Seg Neutrophils # 18.9 H Seg Neutrophils # Man Lymphocytes # (Manual) Monocytes # (Manual) Eosinophils # (Manual) Basophils # (Manual) PT INR D-Dimer ABG pH POC ABG pCO2 POC ABG pO2 ABG pO2 ABG HCO3 ABG O2 Saturation ABG Base Excess ABG Hemoglobin ABG Oxyhemoglobin ABG Potassium ABG Glucose Oxyhemoglobin Carboxyhemoglobin Sodium 146 H Potassium Chloride Carbon Dioxide 37 H BUN Creatinine < 0.2 L Glucose 118 H POC Glucose 111 H Calcium Ferritin Total Bilirubin Alkaline Phosphatase Lactate Dehydrogenase Total Creatine Kinase CK-MB (CK-2) Rel Index Troponin T C-Reactive Protein Total Protein Albumin 3.7 L Prealbumin LDL Cholesterol Direct HDL Cholesterol Arterial Blood Glucose Arterial Blood Ionized Calcium Urine WBC (Auto) 03/07/20 03/07/20 03/07/20 05:20 17:45 23:32 WBC RBC Hgb Hct MCV MCH RDW Plt Count Lymph % (Auto) [place] % (Auto) Lymph # (Auto) [place] # (Auto) Seg Neutrophils % Seg Neuts % (Manual) Lymphocytes % (Manual) Monocytes % (Manual) Basophils % (Manual) Seg Neutrophils # Seg Neutrophils # Man Lymphocytes # (Manual) Monocytes # (Manual) Eosinophils # (Manual) Basophils # (Manual) PT INR D-Dimer ABG pH POC ABG pCO2 POC ABG pO2 ABG pO2 ABG HCO3 ABG O2 Saturation ABG Base Excess ABG Hemoglobin ABG Oxyhemoglobin ABG Potassium ABG Glucose Oxyhemoglobin Carboxyhemoglobin Sodium Potassium Chloride Carbon Dioxide BUN Creatinine Glucose POC Glucose 113 H 124 H 210 H Calcium Ferritin Total Bilirubin Alkaline Phosphatase Lactate Dehydrogenase Total Creatine Kinase CK-MB (CK-2) Rel Index Troponin T C-Reactive Protein Total Protein Albumin Prealbumin LDL Cholesterol Direct HDL Cholesterol Arterial Blood Glucose Arterial Blood Ionized Calcium Urine WBC (Auto) 03/08/20 03/08/20 03/08/20 05:35 06:43 06:43 WBC 28.9 H RBC 3.53 L Hgb 9.7 L Hct 30.3 L MCV MCH RDW 15.6 H Plt Count 578 H Lymph % (Auto) [place] % (Auto) Lymph # (Auto) [place] # (Auto) Seg Neutrophils % Seg Neuts % (Manual) 93.0 H Lymphocytes % (Manual) 4.0 L Monocytes % (Manual) Basophils % (Manual) Seg Neutrophils # Seg Neutrophils # Man 26.9 H Lymphocytes # (Manual) Monocytes # (Manual) Eosinophils # (Manual) Basophils # (Manual) PT INR D-Dimer ABG pH POC ABG pCO2 POC ABG pO2 ABG pO2 ABG HCO3 ABG O2 Saturation ABG Base Excess ABG Hemoglobin ABG Oxyhemoglobin ABG Potassium ABG Glucose Oxyhemoglobin Carboxyhemoglobin Sodium 146 H Potassium Chloride Carbon Dioxide 35 H BUN 34 H Creatinine 0.3 L D Glucose 125 H POC Glucose 147 H Calcium Ferritin Total Bilirubin Alkaline Phosphatase Lactate Dehydrogenase Total Creatine Kinase CK-MB (CK-2) Rel Index Troponin T C-Reactive Protein Total Protein 5.9 L Albumin 3.2 L Prealbumin LDL Cholesterol Direct HDL Cholesterol Arterial Blood Glucose Arterial Blood Ionized Calcium Urine WBC (Auto) 03/08/20 03/08/20 03/08/20 08:57 11:14 12:34 WBC RBC Hgb Hct MCV MCH RDW Plt Count Lymph % (Auto) [place] % (Auto) Lymph # (Auto) [place] # (Auto) Seg Neutrophils % Seg Neuts % (Manual) Lymphocytes % (Manual) Monocytes % (Manual) Basophils % (Manual) Seg Neutrophils # Seg Neutrophils # Man Lymphocytes # (Manual) Monocytes # (Manual) Eosinophils # (Manual) Basophils # (Manual) PT INR D-Dimer ABG pH POC ABG pCO2 63.1 H POC ABG pO2 ABG pO2 ABG HCO3 ABG O2 Saturation ABG Base Excess ABG Hemoglobin 10.9 L ABG Oxyhemoglobin ABG Potassium ABG Glucose 176 H Oxyhemoglobin Carboxyhemoglobin Sodium Potassium Chloride Carbon Dioxide BUN Creatinine Glucose POC Glucose 171 H Calcium Ferritin Total Bilirubin Alkaline Phosphatase Lactate Dehydrogenase Total Creatine Kinase CK-MB (CK-2) Rel Index Troponin T C-Reactive Protein Total Protein Albumin Prealbumin LDL Cholesterol Direct HDL Cholesterol Arterial Blood Glucose 176 H Arterial Blood Ionized Calcium 4.5 L Urine WBC (Auto) 10.0 H 03/08/20 03/08/20 03/09/20 18:02 23:43 05:49 WBC RBC Hgb Hct MCV MCH RDW Plt Count Lymph % (Auto) [place] % (Auto) Lymph # (Auto) [place] # (Auto) Seg Neutrophils % Seg Neuts % (Manual) Lymphocytes % (Manual) Monocytes % (Manual) Basophils % (Manual) Seg Neutrophils # Seg Neutrophils # Man Lymphocytes # (Manual) Monocytes # (Manual) Eosinophils # (Manual) Basophils # (Manual) PT INR D-Dimer ABG pH POC ABG pCO2 POC ABG pO2 ABG pO2 ABG HCO3 ABG O2 Saturation ABG Base Excess ABG Hemoglobin ABG Oxyhemoglobin ABG Potassium ABG Glucose Oxyhemoglobin Carboxyhemoglobin Sodium Potassium Chloride Carbon Dioxide BUN Creatinine Glucose POC Glucose 157 H 134 H 163 H Calcium Ferritin Total Bilirubin Alkaline Phosphatase Lactate Dehydrogenase Total Creatine Kinase CK-MB (CK-2) Rel Index Troponin T C-Reactive Protein Total Protein Albumin Prealbumin LDL Cholesterol Direct HDL Cholesterol Arterial Blood Glucose Arterial Blood Ionized Calcium Urine WBC (Auto) 03/09/20 03/09/20 03/09/20 08:35 08:35 12:11 WBC 23.4 H RBC 3.36 L Hgb 9.3 L Hct 28.8 L MCV MCH RDW 15.9 H Plt Count 521 H Lymph % (Auto) [place] % (Auto) Lymph # (Auto) [place] # (Auto) Seg Neutrophils % Seg Neuts % (Manual) 87.0 H Lymphocytes % (Manual) 4.0 L Monocytes % (Manual) 9.0 H Basophils % (Manual) Seg Neutrophils # Seg Neutrophils # Man 20.4 H Lymphocytes # (Manual) 0.9 L Monocytes # (Manual) 2.1 H Eosinophils # (Manual) Basophils # (Manual) PT INR D-Dimer ABG pH POC ABG pCO2 POC ABG pO2 ABG pO2 ABG HCO3 ABG O2 Saturation ABG Base Excess ABG Hemoglobin ABG Oxyhemoglobin ABG Potassium ABG Glucose Oxyhemoglobin Carboxyhemoglobin Sodium 147 H Potassium Chloride Carbon Dioxide 37 H BUN 63 H Creatinine Glucose 154 H POC Glucose 128 H Calcium Ferritin Total Bilirubin Alkaline Phosphatase Lactate Dehydrogenase Total Creatine Kinase CK-MB (CK-2) Rel Index Troponin T C-Reactive Protein Total Protein Albumin Prealbumin LDL Cholesterol Direct HDL Cholesterol Arterial Blood Glucose Arterial Blood Ionized Calcium Urine WBC (Auto) 03/09/20 03/10/20 03/10/20 17:51 00:25 05:41 WBC RBC Hgb Hct MCV MCH RDW Plt Count Lymph % (Auto) [place] % (Auto) Lymph # (Auto) [place] # (Auto) Seg Neutrophils % Seg Neuts % (Manual) Lymphocytes % (Manual) Monocytes % (Manual) Basophils % (Manual) Seg Neutrophils # Seg Neutrophils # Man Lymphocytes # (Manual) Monocytes # (Manual) Eosinophils # (Manual) Basophils # (Manual) PT INR D-Dimer ABG pH POC ABG pCO2 POC ABG pO2 ABG pO2 ABG HCO3 ABG O2 Saturation ABG Base Excess ABG Hemoglobin ABG Oxyhemoglobin ABG Potassium ABG Glucose Oxyhemoglobin Carboxyhemoglobin Sodium Potassium Chloride Carbon Dioxide BUN Creatinine Glucose POC Glucose 127 H 128 H 153 H Calcium Ferritin Total Bilirubin Alkaline Phosphatase Lactate Dehydrogenase Total Creatine Kinase CK-MB (CK-2) Rel Index Troponin T C-Reactive Protein Total Protein Albumin Prealbumin LDL Cholesterol Direct HDL Cholesterol Arterial Blood Glucose Arterial Blood Ionized Calcium Urine WBC (Auto) 03/10/20 03/10/20 03/10/20 06:14 06:14 12:02 WBC 18.3 H RBC 3.45 L Hgb 9.5 L Hct 29.5 L MCV MCH RDW 16.1 H Plt Count 494 H Lymph % (Auto) [place] % (Auto) Lymph # (Auto) [place] # (Auto) Seg Neutrophils % Seg Neuts % (Manual) 95.0 H Lymphocytes % (Manual) 1.0 L Monocytes % (Manual) Basophils % (Manual) Seg Neutrophils # Seg Neutrophils # Man 17.4 H Lymphocytes # (Manual) 0.2 L Monocytes # (Manual) Eosinophils # (Manual) Basophils # (Manual) PT INR D-Dimer ABG pH POC ABG pCO2 POC ABG pO2 ABG pO2 ABG HCO3 ABG O2 Saturation ABG Base Excess ABG Hemoglobin ABG Oxyhemoglobin ABG Potassium ABG Glucose Oxyhemoglobin Carboxyhemoglobin Sodium 149 H Potassium Chloride Carbon Dioxide 35 H BUN 34 H Creatinine 0.2 L D Glucose 177 H POC Glucose 151 H Calcium Ferritin Total Bilirubin Alkaline Phosphatase Lactate Dehydrogenase Total Creatine Kinase CK-MB (CK-2) Rel Index Troponin T C-Reactive Protein Total Protein Albumin Prealbumin LDL Cholesterol Direct HDL Cholesterol Arterial Blood Glucose Arterial Blood Ionized Calcium Urine WBC (Auto) 03/10/20 03/10/20 03/11/20 17:41 23:53 05:02 WBC RBC Hgb Hct MCV MCH RDW Plt Count Lymph % (Auto) [place] % (Auto) Lymph # (Auto) [place] # (Auto) Seg Neutrophils % Seg Neuts % (Manual) Lymphocytes % (Manual) Monocytes % (Manual) Basophils % (Manual) Seg Neutrophils # Seg Neutrophils # Man Lymphocytes # (Manual) Monocytes # (Manual) Eosinophils # (Manual) Basophils # (Manual) PT INR D-Dimer ABG pH POC ABG pCO2 POC ABG pO2 ABG pO2 ABG HCO3 ABG O2 Saturation ABG Base Excess ABG Hemoglobin ABG Oxyhemoglobin ABG Potassium ABG Glucose Oxyhemoglobin Carboxyhemoglobin Sodium Potassium Chloride Carbon Dioxide BUN Creatinine Glucose POC Glucose 168 H 142 H 146 H Calcium Ferritin Total Bilirubin Alkaline Phosphatase Lactate Dehydrogenase Total Creatine Kinase CK-MB (CK-2) Rel Index Troponin T C-Reactive Protein Total Protein Albumin Prealbumin LDL Cholesterol Direct HDL Cholesterol Arterial Blood Glucose Arterial Blood Ionized Calcium Urine WBC (Auto) 03/11/20 03/11/20 03/11/20 11:30 14:01 14:01 WBC 19.7 H RBC 3.04 L Hgb 8.7 L Hct 25.8 L MCV MCH RDW 15.6 H Plt Count Lymph % (Auto) [place] % (Auto) Lymph # (Auto) [place] # (Auto) Seg Neutrophils % Seg Neuts % (Manual) Lymphocytes % (Manual) Monocytes % (Manual) Basophils % (Manual) Seg Neutrophils # Seg Neutrophils # Man Lymphocytes # (Manual) Monocytes # (Manual) Eosinophils # (Manual) Basophils # (Manual) PT INR D-Dimer ABG pH POC ABG pCO2 POC ABG pO2 ABG pO2 ABG HCO3 ABG O2 Saturation ABG Base Excess ABG Hemoglobin ABG Oxyhemoglobin ABG Potassium ABG Glucose Oxyhemoglobin Carboxyhemoglobin Sodium 151 H Potassium Chloride Carbon Dioxide 37 H BUN Creatinine < 0.2 L Glucose 171 H POC Glucose 248 H Calcium Ferritin Total Bilirubin Alkaline Phosphatase Lactate Dehydrogenase Total Creatine Kinase CK-MB (CK-2) Rel Index Troponin T C-Reactive Protein Total Protein Albumin Prealbumin LDL Cholesterol Direct HDL Cholesterol Arterial Blood Glucose Arterial Blood Ionized Calcium Urine WBC (Auto) 03/11/20 03/11/20 03/12/20 17:09 23:52 04:39 WBC 19.9 H RBC 3.16 L Hgb 8.9 L Hct 27.5 L MCV MCH RDW 15.7 H Plt Count Lymph % (Auto) 6.8 L [place] % (Auto) Lymph # (Auto) [place] # (Auto) 1.2 H Seg Neutrophils % 86.0 H Seg Neuts % (Manual) Lymphocytes % (Manual) Monocytes % (Manual) Basophils % (Manual) Seg Neutrophils # 17.1 H Seg Neutrophils # Man Lymphocytes # (Manual) Monocytes # (Manual) Eosinophils # (Manual) Basophils # (Manual) PT INR D-Dimer ABG pH POC ABG pCO2 POC ABG pO2 ABG pO2 ABG HCO3 ABG O2 Saturation ABG Base Excess ABG Hemoglobin ABG Oxyhemoglobin ABG Potassium ABG Glucose Oxyhemoglobin Carboxyhemoglobin Sodium Potassium Chloride Carbon Dioxide BUN Creatinine Glucose POC Glucose 124 H 131 H Calcium Ferritin Total Bilirubin Alkaline Phosphatase Lactate Dehydrogenase Total Creatine Kinase CK-MB (CK-2) Rel Index Troponin T C-Reactive Protein Total Protein Albumin Prealbumin LDL Cholesterol Direct HDL Cholesterol Arterial Blood Glucose Arterial Blood Ionized Calcium Urine WBC (Auto) 03/12/20 03/12/20 03/12/20 04:39 05:28 11:34 WBC RBC Hgb Hct MCV MCH RDW Plt Count Lymph % (Auto) [place] % (Auto) Lymph # (Auto) [place] # (Auto) Seg Neutrophils % Seg Neuts % (Manual) Lymphocytes % (Manual) Monocytes % (Manual) Basophils % (Manual) Seg Neutrophils # Seg Neutrophils # Man Lymphocytes # (Manual) Monocytes # (Manual) Eosinophils # (Manual) Basophils # (Manual) PT INR D-Dimer ABG pH POC ABG pCO2 POC ABG pO2 ABG pO2 ABG HCO3 ABG O2 Saturation ABG Base Excess ABG Hemoglobin ABG Oxyhemoglobin ABG Potassium ABG Glucose Oxyhemoglobin Carboxyhemoglobin Sodium 147 H Potassium Chloride Carbon Dioxide 40 H BUN Creatinine < 0.2 L Glucose 175 H POC Glucose 167 H 144 H Calcium Ferritin Total Bilirubin Alkaline Phosphatase Lactate Dehydrogenase Total Creatine Kinase CK-MB (CK-2) Rel Index Troponin T C-Reactive Protein Total Protein Albumin Prealbumin LDL Cholesterol Direct HDL Cholesterol Arterial Blood Glucose Arterial Blood Ionized Calcium Urine WBC (Auto) 03/12/20 03/12/20 03/13/20 17:32 23:57 05:57 WBC RBC Hgb Hct MCV MCH RDW Plt Count Lymph % (Auto) [place] % (Auto) Lymph # (Auto) [place] # (Auto) Seg Neutrophils % Seg Neuts % (Manual) Lymphocytes % (Manual) Monocytes % (Manual) Basophils % (Manual) Seg Neutrophils # Seg Neutrophils # Man Lymphocytes # (Manual) Monocytes # (Manual) Eosinophils # (Manual) Basophils # (Manual) PT INR D-Dimer ABG pH POC ABG pCO2 POC ABG pO2 ABG pO2 ABG HCO3 ABG O2 Saturation ABG Base Excess ABG Hemoglobin ABG Oxyhemoglobin ABG Potassium ABG Glucose Oxyhemoglobin Carboxyhemoglobin Sodium Potassium Chloride Carbon Dioxide BUN Creatinine Glucose POC Glucose 141 H 137 H 161 H Calcium Ferritin Total Bilirubin Alkaline Phosphatase Lactate Dehydrogenase Total Creatine Kinase CK-MB (CK-2) Rel Index Troponin T C-Reactive Protein Total Protein Albumin Prealbumin LDL Cholesterol Direct HDL Cholesterol Arterial Blood Glucose Arterial Blood Ionized Calcium Urine WBC (Auto) 03/13/20 03/13/20 03/13/20 12:28 14:14 18:39 WBC RBC Hgb Hct MCV MCH RDW Plt Count Lymph % (Auto) [place] % (Auto) Lymph # (Auto) [place] # (Auto) Seg Neutrophils % Seg Neuts % (Manual) Lymphocytes % (Manual) Monocytes % (Manual) Basophils % (Manual) Seg Neutrophils # Seg Neutrophils # Man Lymphocytes # (Manual) Monocytes # (Manual) Eosinophils # (Manual) Basophils # (Manual) PT INR D-Dimer ABG pH POC ABG pCO2 POC ABG pO2 ABG pO2 ABG HCO3 ABG O2 Saturation ABG Base Excess ABG Hemoglobin ABG Oxyhemoglobin ABG Potassium ABG Glucose Oxyhemoglobin Carboxyhemoglobin Sodium Potassium Chloride Carbon Dioxide 39 H BUN Creatinine < 0.2 L Glucose 129 H POC Glucose 130 H 125 H Calcium Ferritin Total Bilirubin Alkaline Phosphatase Lactate Dehydrogenase Total Creatine Kinase CK-MB (CK-2) Rel Index Troponin T C-Reactive Protein Total Protein Albumin Prealbumin LDL Cholesterol Direct HDL Cholesterol Arterial Blood Glucose Arterial Blood Ionized Calcium Urine WBC (Auto) 03/13/20 03/14/20 03/14/20 23:33 05:24 08:07 WBC 16.8 H RBC 2.81 L Hgb 7.9 L Hct 23.9 L MCV MCH RDW 15.9 H Plt Count Lymph % (Auto) [place] % (Auto) Lymph # (Auto) [place] # (Auto) Seg Neutrophils % Seg Neuts % (Manual) 84.0 H Lymphocytes % (Manual) 10.0 L Monocytes % (Manual) Basophils % (Manual) Seg Neutrophils # Seg Neutrophils # Man 14.1 H Lymphocytes # (Manual) Monocytes # (Manual) Eosinophils # (Manual) Basophils # (Manual) PT INR D-Dimer ABG pH POC ABG pCO2 POC ABG pO2 ABG pO2 ABG HCO3 ABG O2 Saturation ABG Base Excess ABG Hemoglobin ABG Oxyhemoglobin ABG Potassium ABG Glucose Oxyhemoglobin Carboxyhemoglobin Sodium Potassium Chloride Carbon Dioxide BUN Creatinine Glucose POC Glucose 146 H 125 H Calcium Ferritin Total Bilirubin Alkaline Phosphatase Lactate Dehydrogenase Total Creatine Kinase CK-MB (CK-2) Rel Index Troponin T C-Reactive Protein Total Protein Albumin Prealbumin LDL Cholesterol Direct HDL Cholesterol Arterial Blood Glucose Arterial Blood Ionized Calcium Urine WBC (Auto) 03/14/20 03/14/20 03/14/20 08:07 12:21 18:26 WBC RBC Hgb Hct MCV MCH RDW Plt Count Lymph % (Auto) [place] % (Auto) Lymph # (Auto) [place] # (Auto) Seg Neutrophils % Seg Neuts % (Manual) Lymphocytes % (Manual) Monocytes % (Manual) Basophils % (Manual) Seg Neutrophils # Seg Neutrophils # Man Lymphocytes # (Manual) Monocytes # (Manual) Eosinophils # (Manual) Basophils # (Manual) PT INR D-Dimer ABG pH POC ABG pCO2 POC ABG pO2 ABG pO2 ABG HCO3 ABG O2 Saturation ABG Base Excess ABG Hemoglobin ABG Oxyhemoglobin ABG Potassium ABG Glucose Oxyhemoglobin Carboxyhemoglobin Sodium Potassium Chloride 97.0 L Carbon Dioxide 37 H BUN Creatinine < 0.2 L Glucose 129 H POC Glucose 109 H 142 H Calcium 8.3 L Ferritin Total Bilirubin Alkaline Phosphatase Lactate Dehydrogenase Total Creatine Kinase CK-MB (CK-2) Rel Index Troponin T C-Reactive Protein Total Protein Albumin Prealbumin LDL Cholesterol Direct HDL Cholesterol Arterial Blood Glucose Arterial Blood Ionized Calcium Urine WBC (Auto) 03/14/20 03/15/20 03/15/20 23:57 05:46 08:06 WBC 19.7 H RBC 3.29 L Hgb 9.1 L Hct 28.0 L MCV MCH RDW 15.9 H Plt Count Lymph % (Auto) [place] % (Auto) Lymph # (Auto) [place] # (Auto) Seg Neutrophils % Seg Neuts % (Manual) Lymphocytes % (Manual) Monocytes % (Manual) Basophils % (Manual) Seg Neutrophils # Seg Neutrophils # Man Lymphocytes # (Manual) Monocytes # (Manual) Eosinophils # (Manual) Basophils # (Manual) PT INR D-Dimer ABG pH POC ABG pCO2 POC ABG pO2 ABG pO2 ABG HCO3 ABG O2 Saturation ABG Base Excess ABG Hemoglobin ABG Oxyhemoglobin ABG Potassium ABG Glucose Oxyhemoglobin Carboxyhemoglobin Sodium Potassium Chloride Carbon Dioxide BUN Creatinine Glucose POC Glucose 157 H 118 H Calcium Ferritin Total Bilirubin Alkaline Phosphatase Lactate Dehydrogenase Total Creatine Kinase CK-MB (CK-2) Rel Index Troponin T C-Reactive Protein Total Protein Albumin Prealbumin LDL Cholesterol Direct HDL Cholesterol Arterial Blood Glucose Arterial Blood Ionized Calcium Urine WBC (Auto) 03/15/20 03/15/20 03/15/20 08:06 12:44 18:09 WBC RBC Hgb Hct MCV MCH RDW Plt Count Lymph % (Auto) [place] % (Auto) Lymph # (Auto) [place] # (Auto) Seg Neutrophils % Seg Neuts % (Manual) Lymphocytes % (Manual) Monocytes % (Manual) Basophils % (Manual) Seg Neutrophils # Seg Neutrophils # Man Lymphocytes # (Manual) Monocytes # (Manual) Eosinophils # (Manual) Basophils # (Manual) PT INR D-Dimer ABG pH POC ABG pCO2 POC ABG pO2 ABG pO2 ABG HCO3 ABG O2 Saturation ABG Base Excess ABG Hemoglobin ABG Oxyhemoglobin ABG Potassium ABG Glucose Oxyhemoglobin Carboxyhemoglobin Sodium 136 L Potassium Chloride 93.6 L Carbon Dioxide 37 H BUN Creatinine < 0.2 L Glucose 132 H POC Glucose 151 H 164 H Calcium Ferritin Total Bilirubin Alkaline Phosphatase Lactate Dehydrogenase Total Creatine Kinase CK-MB (CK-2) Rel Index Troponin T C-Reactive Protein Total Protein Albumin Prealbumin LDL Cholesterol Direct HDL Cholesterol Arterial Blood Glucose Arterial Blood Ionized Calcium Urine WBC (Auto) 03/15/20 03/16/20 03/16/20 23:26 05:39 11:58 WBC RBC Hgb Hct MCV MCH RDW Plt Count Lymph % (Auto) [place] % (Auto) Lymph # (Auto) [place] # (Auto) Seg Neutrophils % Seg Neuts % (Manual) Lymphocytes % (Manual) Monocytes % (Manual) Basophils % (Manual) Seg Neutrophils # Seg Neutrophils # Man Lymphocytes # (Manual) Monocytes # (Manual) Eosinophils # (Manual) Basophils # (Manual) PT INR D-Dimer ABG pH POC ABG pCO2 POC ABG pO2 ABG pO2 ABG HCO3 ABG O2 Saturation ABG Base Excess ABG Hemoglobin ABG Oxyhemoglobin ABG Potassium ABG Glucose Oxyhemoglobin Carboxyhemoglobin Sodium Potassium Chloride Carbon Dioxide BUN Creatinine Glucose POC Glucose 136 H 116 H 109 H Calcium Ferritin Total Bilirubin Alkaline Phosphatase Lactate Dehydrogenase Total Creatine Kinase CK-MB (CK-2) Rel Index Troponin T C-Reactive Protein Total Protein Albumin Prealbumin LDL Cholesterol Direct HDL Cholesterol Arterial Blood Glucose Arterial Blood Ionized Calcium Urine WBC (Auto) 03/16/20 03/17/20 03/17/20 23:56 04:40 04:40 WBC 18.0 H RBC 3.33 L Hgb 9.5 L Hct 28.8 L MCV MCH RDW 16.4 H Plt Count 499 H Lymph % (Auto) [place] % (Auto) Lymph # (Auto) [place] # (Auto) Seg Neutrophils % Seg Neuts % (Manual) 82.0 H Lymphocytes % (Manual) 8.0 L Monocytes % (Manual) Basophils % (Manual) Seg Neutrophils # Seg Neutrophils # Man 14.8 H Lymphocytes # (Manual) Monocytes # (Manual) 1.3 H Eosinophils # (Manual) Basophils # (Manual) 0.2 H PT INR D-Dimer ABG pH POC ABG pCO2 POC ABG pO2 ABG pO2 ABG HCO3 ABG O2 Saturation ABG Base Excess ABG Hemoglobin ABG Oxyhemoglobin ABG Potassium ABG Glucose Oxyhemoglobin Carboxyhemoglobin Sodium Potassium Chloride 97.7 L Carbon Dioxide 32 H BUN Creatinine < 0.2 L Glucose 114 H POC Glucose 131 H Calcium Ferritin Total Bilirubin Alkaline Phosphatase Lactate Dehydrogenase Total Creatine Kinase CK-MB (CK-2) Rel Index Troponin T C-Reactive Protein Total Protein Albumin Prealbumin LDL Cholesterol Direct HDL Cholesterol Arterial Blood Glucose Arterial Blood Ionized Calcium Urine WBC (Auto) 03/18/20 03/18/20 03/18/20 00:21 05:21 11:55 WBC RBC Hgb Hct MCV MCH RDW Plt Count Lymph % (Auto) [place] % (Auto) Lymph # (Auto) [place] # (Auto) Seg Neutrophils % Seg Neuts % (Manual) Lymphocytes % (Manual) Monocytes % (Manual) Basophils % (Manual) Seg Neutrophils # Seg Neutrophils # Man Lymphocytes # (Manual) Monocytes # (Manual) Eosinophils # (Manual) Basophils # (Manual) PT INR D-Dimer ABG pH POC ABG pCO2 POC ABG pO2 ABG pO2 ABG HCO3 ABG O2 Saturation ABG Base Excess ABG Hemoglobin ABG Oxyhemoglobin ABG Potassium ABG Glucose Oxyhemoglobin Carboxyhemoglobin Sodium Potassium Chloride Carbon Dioxide BUN Creatinine Glucose POC Glucose 124 H 138 H 119 H Calcium Ferritin Total Bilirubin Alkaline Phosphatase Lactate Dehydrogenase Total Creatine Kinase CK-MB (CK-2) Rel Index Troponin T C-Reactive Protein Total Protein Albumin Prealbumin LDL Cholesterol Direct HDL Cholesterol Arterial Blood Glucose Arterial Blood Ionized Calcium Urine WBC (Auto) 03/18/20 03/18/20 03/19/20 17:03 23:58 05:24 WBC RBC Hgb Hct MCV MCH RDW Plt Count Lymph % (Auto) [place] % (Auto) Lymph # (Auto) [place] # (Auto) Seg Neutrophils % Seg Neuts % (Manual) Lymphocytes % (Manual) Monocytes % (Manual) Basophils % (Manual) Seg Neutrophils # Seg Neutrophils # Man Lymphocytes # (Manual) Monocytes # (Manual) Eosinophils # (Manual) Basophils # (Manual) PT INR D-Dimer ABG pH POC ABG pCO2 POC ABG pO2 ABG pO2 ABG HCO3 ABG O2 Saturation ABG Base Excess ABG Hemoglobin ABG Oxyhemoglobin ABG Potassium ABG Glucose Oxyhemoglobin Carboxyhemoglobin Sodium Potassium Chloride Carbon Dioxide BUN Creatinine Glucose POC Glucose 128 H 128 H 115 H Calcium Ferritin Total Bilirubin Alkaline Phosphatase Lactate Dehydrogenase Total Creatine Kinase CK-MB (CK-2) Rel Index Troponin T C-Reactive Protein Total Protein Albumin Prealbumin LDL Cholesterol Direct HDL Cholesterol Arterial Blood Glucose Arterial Blood Ionized Calcium Urine WBC (Auto) 03/19/20 03/19/20 03/19/20 08:05 08:05 11:56 WBC 16.8 H RBC 3.36 L Hgb 9.4 L Hct 28.8 L MCV MCH RDW 17.4 H Plt Count 567 H Lymph % (Auto) 7.8 L [place] % (Auto) Lymph # (Auto) [place] # (Auto) 1.2 H Seg Neutrophils % 83.5 H Seg Neuts % (Manual) Lymphocytes % (Manual) Monocytes % (Manual) Basophils % (Manual) Seg Neutrophils # 14.1 H Seg Neutrophils # Man Lymphocytes # (Manual) Monocytes # (Manual) Eosinophils # (Manual) Basophils # (Manual) PT INR D-Dimer ABG pH POC ABG pCO2 POC ABG pO2 ABG pO2 ABG HCO3 ABG O2 Saturation ABG Base Excess ABG Hemoglobin ABG Oxyhemoglobin ABG Potassium ABG Glucose Oxyhemoglobin Carboxyhemoglobin Sodium Potassium Chloride Carbon Dioxide 36 H BUN Creatinine < 0.2 L Glucose 135 H POC Glucose 128 H Calcium Ferritin Total Bilirubin Alkaline Phosphatase Lactate Dehydrogenase Total Creatine Kinase CK-MB (CK-2) Rel Index Troponin T C-Reactive Protein Total Protein Albumin Prealbumin LDL Cholesterol Direct HDL Cholesterol Arterial Blood Glucose Arterial Blood Ionized Calcium Urine WBC (Auto) 03/19/20 03/20/20 03/20/20 23:59 05:12 16:52 WBC RBC Hgb Hct MCV MCH RDW Plt Count Lymph % (Auto) [place] % (Auto) Lymph # (Auto) [place] # (Auto) Seg Neutrophils % Seg Neuts % (Manual) Lymphocytes % (Manual) Monocytes % (Manual) Basophils % (Manual) Seg Neutrophils # Seg Neutrophils # Man Lymphocytes # (Manual) Monocytes # (Manual) Eosinophils # (Manual) Basophils # (Manual) PT INR D-Dimer ABG pH POC ABG pCO2 POC ABG pO2 ABG pO2 ABG HCO3 ABG O2 Saturation ABG Base Excess ABG Hemoglobin ABG Oxyhemoglobin ABG Potassium ABG Glucose Oxyhemoglobin Carboxyhemoglobin Sodium Potassium Chloride Carbon Dioxide BUN Creatinine Glucose POC Glucose 120 H 131 H 124 H Calcium Ferritin Total Bilirubin Alkaline Phosphatase Lactate Dehydrogenase Total Creatine Kinase CK-MB (CK-2) Rel Index Troponin T C-Reactive Protein Total Protein Albumin Prealbumin LDL Cholesterol Direct HDL Cholesterol Arterial Blood Glucose Arterial Blood Ionized Calcium Urine WBC (Auto) 03/20/20 03/21/20 03/21/20 23:35 04:50 07:35 WBC 15.2 H RBC 3.39 L Hgb 9.4 L Hct 29.4 L MCV MCH RDW 17.6 H Plt Count 518 H Lymph % (Auto) [place] % (Auto) Lymph # (Auto) [place] # (Auto) Seg Neutrophils % Seg Neuts % (Manual) 83.0 H Lymphocytes % (Manual) 10.0 L Monocytes % (Manual) Basophils % (Manual) 2.0 H Seg Neutrophils # Seg Neutrophils # Man 12.6 H Lymphocytes # (Manual) Monocytes # (Manual) Eosinophils # (Manual) Basophils # (Manual) 0.3 H PT INR D-Dimer ABG pH POC ABG pCO2 POC ABG pO2 ABG pO2 ABG HCO3 ABG O2 Saturation ABG Base Excess ABG Hemoglobin ABG Oxyhemoglobin ABG Potassium ABG Glucose Oxyhemoglobin Carboxyhemoglobin Sodium Potassium Chloride Carbon Dioxide BUN Creatinine Glucose POC Glucose 125 H 127 H Calcium Ferritin Total Bilirubin Alkaline Phosphatase Lactate Dehydrogenase Total Creatine Kinase CK-MB (CK-2) Rel Index Troponin T C-Reactive Protein Total Protein Albumin Prealbumin LDL Cholesterol Direct HDL Cholesterol Arterial Blood Glucose Arterial Blood Ionized Calcium Urine WBC (Auto) 03/21/20 03/21/20 03/21/20 07:35 11:45 17:22 WBC RBC Hgb Hct MCV MCH RDW Plt Count Lymph % (Auto) [place] % (Auto) Lymph # (Auto) [place] # (Auto) Seg Neutrophils % Seg Neuts % (Manual) Lymphocytes % (Manual) Monocytes % (Manual) Basophils % (Manual) Seg Neutrophils # Seg Neutrophils # Man Lymphocytes # (Manual) Monocytes # (Manual) Eosinophils # (Manual) Basophils # (Manual) PT INR D-Dimer ABG pH POC ABG pCO2 POC ABG pO2 ABG pO2 ABG HCO3 ABG O2 Saturation ABG Base Excess ABG Hemoglobin ABG Oxyhemoglobin ABG Potassium ABG Glucose Oxyhemoglobin Carboxyhemoglobin Sodium 136 L Potassium Chloride 97.7 L Carbon Dioxide 32 H BUN Creatinine < 0.2 L Glucose 103 H POC Glucose 126 H 120 H Calcium Ferritin Total Bilirubin Alkaline Phosphatase Lactate Dehydrogenase Total Creatine Kinase CK-MB (CK-2) Rel Index Troponin T C-Reactive Protein Total Protein Albumin Prealbumin LDL Cholesterol Direct HDL Cholesterol Arterial Blood Glucose Arterial Blood Ionized Calcium Urine WBC (Auto) 03/22/20 03/22/20 03/22/20 05:09 06:34 06:34 WBC 17.5 H RBC 3.52 L Hgb 10.0 L Hct 30.7 L MCV MCH RDW 17.5 H Plt Count 499 H Lymph % (Auto) [place] % (Auto) Lymph # (Auto) [place] # (Auto) Seg Neutrophils % Seg Neuts % (Manual) 80.0 H Lymphocytes % (Manual) 10.0 L Monocytes % (Manual) Basophils % (Manual) Seg Neutrophils # Seg Neutrophils # Man 14.0 H Lymphocytes # (Manual) Monocytes # (Manual) Eosinophils # (Manual) Basophils # (Manual) PT INR D-Dimer ABG pH POC ABG pCO2 POC ABG pO2 ABG pO2 ABG HCO3 ABG O2 Saturation ABG Base Excess ABG Hemoglobin ABG Oxyhemoglobin ABG Potassium ABG Glucose Oxyhemoglobin Carboxyhemoglobin Sodium Potassium Chloride 96.6 L Carbon Dioxide 38 H BUN Creatinine < 0.2 L Glucose 139 H POC Glucose 125 H Calcium Ferritin Total Bilirubin Alkaline Phosphatase Lactate Dehydrogenase Total Creatine Kinase CK-MB (CK-2) Rel Index Troponin T C-Reactive Protein Total Protein Albumin Prealbumin LDL Cholesterol Direct HDL Cholesterol Arterial Blood Glucose Arterial Blood Ionized Calcium Urine WBC (Auto) 03/22/20 03/22/20 03/22/20 11:45 18:00 23:32 WBC RBC Hgb Hct MCV MCH RDW Plt Count Lymph % (Auto) [place] % (Auto) Lymph # (Auto) [place] # (Auto) Seg Neutrophils % Seg Neuts % (Manual) Lymphocytes % (Manual) Monocytes % (Manual) Basophils % (Manual) Seg Neutrophils # Seg Neutrophils # Man Lymphocytes # (Manual) Monocytes # (Manual) Eosinophils # (Manual) Basophils # (Manual) PT INR D-Dimer ABG pH POC ABG pCO2 POC ABG pO2 ABG pO2 ABG HCO3 ABG O2 Saturation ABG Base Excess ABG Hemoglobin ABG Oxyhemoglobin ABG Potassium ABG Glucose Oxyhemoglobin Carboxyhemoglobin Sodium Potassium Chloride Carbon Dioxide BUN Creatinine Glucose POC Glucose 135 H 133 H Calcium Ferritin Total Bilirubin Alkaline Phosphatase Lactate Dehydrogenase Total Creatine Kinase CK-MB (CK-2) Rel Index Troponin T 0.113 H* C-Reactive Protein Total Protein Albumin Prealbumin LDL Cholesterol Direct HDL Cholesterol Arterial Blood Glucose Arterial Blood Ionized Calcium Urine WBC (Auto) 03/23/20 03/23/20 03/23/20 01:47 06:21 07:57 WBC RBC Hgb Hct MCV MCH RDW Plt Count Lymph % (Auto) [place] % (Auto) Lymph # (Auto) [place] # (Auto) Seg Neutrophils % Seg Neuts % (Manual) Lymphocytes % (Manual) Monocytes % (Manual) Basophils % (Manual) Seg Neutrophils # Seg Neutrophils # Man Lymphocytes # (Manual) Monocytes # (Manual) Eosinophils # (Manual) Basophils # (Manual) PT INR D-Dimer ABG pH POC ABG pCO2 POC ABG pO2 ABG pO2 ABG HCO3 ABG O2 Saturation ABG Base Excess ABG Hemoglobin ABG Oxyhemoglobin ABG Potassium ABG Glucose Oxyhemoglobin Carboxyhemoglobin Sodium Potassium Chloride Carbon Dioxide BUN Creatinine Glucose POC Glucose 130 H Calcium Ferritin Total Bilirubin Alkaline Phosphatase Lactate Dehydrogenase Total Creatine Kinase CK-MB (CK-2) Rel Index Troponin T 0.143 H* D 0.105 H* D C-Reactive Protein Total Protein Albumin Prealbumin LDL Cholesterol Direct HDL Cholesterol Arterial Blood Glucose Arterial Blood Ionized Calcium Urine WBC (Auto) 03/23/20 03/24/20 03/24/20 12:02 05:33 07:15 WBC 18.0 H RBC Hgb 11.0 L Hct 34.0 L MCV MCH RDW 17.4 H Plt Count 520 H Lymph % (Auto) [place] % (Auto) Lymph # (Auto) [place] # (Auto) Seg Neutrophils % Seg Neuts % (Manual) 88.0 H Lymphocytes % (Manual) 7.0 L Monocytes % (Manual) Basophils % (Manual) Seg Neutrophils # Seg Neutrophils # Man 15.8 H Lymphocytes # (Manual) Monocytes # (Manual) Eosinophils # (Manual) Basophils # (Manual) PT INR D-Dimer ABG pH POC ABG pCO2 POC ABG pO2 ABG pO2 ABG HCO3 ABG O2 Saturation ABG Base Excess ABG Hemoglobin ABG Oxyhemoglobin ABG Potassium ABG Glucose Oxyhemoglobin Carboxyhemoglobin Sodium Potassium Chloride Carbon Dioxide BUN Creatinine Glucose POC Glucose 137 H 112 H Calcium Ferritin Total Bilirubin Alkaline Phosphatase Lactate Dehydrogenase Total Creatine Kinase CK-MB (CK-2) Rel Index Troponin T C-Reactive Protein Total Protein Albumin Prealbumin LDL Cholesterol Direct HDL Cholesterol Arterial Blood Glucose Arterial Blood Ionized Calcium Urine WBC (Auto) 03/24/20 03/24/20 03/24/20 07:15 11:22 23:30 WBC RBC Hgb Hct MCV MCH RDW Plt Count Lymph % (Auto) [place] % (Auto) Lymph # (Auto) [place] # (Auto) Seg Neutrophils % Seg Neuts % (Manual) Lymphocytes % (Manual) Monocytes % (Manual) Basophils % (Manual) Seg Neutrophils # Seg Neutrophils # Man Lymphocytes # (Manual) Monocytes # (Manual) Eosinophils # (Manual) Basophils # (Manual) PT INR D-Dimer ABG pH POC ABG pCO2 POC ABG pO2 ABG pO2 ABG HCO3 ABG O2 Saturation ABG Base Excess ABG Hemoglobin ABG Oxyhemoglobin ABG Potassium ABG Glucose Oxyhemoglobin Carboxyhemoglobin Sodium Potassium Chloride 96.6 L Carbon Dioxide 38 H BUN Creatinine < 0.2 L Glucose 141 H POC Glucose 130 H 120 H Calcium Ferritin Total Bilirubin Alkaline Phosphatase Lactate Dehydrogenase Total Creatine Kinase CK-MB (CK-2) Rel Index Troponin T C-Reactive Protein Total Protein Albumin Prealbumin LDL Cholesterol Direct HDL Cholesterol Arterial Blood Glucose Arterial Blood Ionized Calcium Urine WBC (Auto) 03/25/20 03/25/20 03/25/20 05:48 17:53 23:18 WBC RBC Hgb Hct MCV MCH RDW Plt Count Lymph % (Auto) [place] % (Auto) Lymph # (Auto) [place] # (Auto) Seg Neutrophils % Seg Neuts % (Manual) Lymphocytes % (Manual) Monocytes % (Manual) Basophils % (Manual) Seg Neutrophils # Seg Neutrophils # Man Lymphocytes # (Manual) Monocytes # (Manual) Eosinophils # (Manual) Basophils # (Manual) PT INR D-Dimer ABG pH POC ABG pCO2 POC ABG pO2 ABG pO2 ABG HCO3 ABG O2 Saturation ABG Base Excess ABG Hemoglobin ABG Oxyhemoglobin ABG Potassium ABG Glucose Oxyhemoglobin Carboxyhemoglobin Sodium Potassium Chloride Carbon Dioxide BUN Creatinine Glucose POC Glucose 124 H 109 H 131 H Calcium Ferritin Total Bilirubin Alkaline Phosphatase Lactate Dehydrogenase Total Creatine Kinase CK-MB (CK-2) Rel Index Troponin T C-Reactive Protein Total Protein Albumin Prealbumin LDL Cholesterol Direct HDL Cholesterol Arterial Blood Glucose Arterial Blood Ionized Calcium Urine WBC (Auto) 03/26/20 03/26/20 03/26/20 05:21 08:49 08:49 WBC 19.7 H RBC Hgb 10.7 L Hct 33.5 L MCV MCH 27 L RDW 17.1 H Plt Count 480 H Lymph % (Auto) 5.7 L [place] % (Auto) Lymph # (Auto) 1.1 L [place] # (Auto) 1.2 H Seg Neutrophils % 87.7 H Seg Neuts % (Manual) Lymphocytes % (Manual) Monocytes % (Manual) Basophils % (Manual) Seg Neutrophils # 17.2 H Seg Neutrophils # Man Lymphocytes # (Manual) Monocytes # (Manual) Eosinophils # (Manual) Basophils # (Manual) PT INR D-Dimer ABG pH POC ABG pCO2 POC ABG pO2 ABG pO2 ABG HCO3 ABG O2 Saturation ABG Base Excess ABG Hemoglobin ABG Oxyhemoglobin ABG Potassium ABG Glucose Oxyhemoglobin Carboxyhemoglobin Sodium Potassium Chloride 97.2 L Carbon Dioxide 36 H BUN Creatinine < 0.2 L Glucose 127 H POC Glucose 116 H Calcium Ferritin Total Bilirubin Alkaline Phosphatase Lactate Dehydrogenase Total Creatine Kinase CK-MB (CK-2) Rel Index Troponin T C-Reactive Protein Total Protein Albumin Prealbumin LDL Cholesterol Direct HDL Cholesterol Arterial Blood Glucose Arterial Blood Ionized Calcium Urine WBC (Auto) 03/26/20 03/26/20 03/26/20 11:38 18:44 23:06 WBC RBC Hgb Hct MCV MCH RDW Plt Count Lymph % (Auto) [place] % (Auto) Lymph # (Auto) [place] # (Auto) Seg Neutrophils % Seg Neuts % (Manual) Lymphocytes % (Manual) Monocytes % (Manual) Basophils % (Manual) Seg Neutrophils # Seg Neutrophils # Man Lymphocytes # (Manual) Monocytes # (Manual) Eosinophils # (Manual) Basophils # (Manual) PT INR D-Dimer ABG pH POC ABG pCO2 POC ABG pO2 ABG pO2 ABG HCO3 ABG O2 Saturation ABG Base Excess ABG Hemoglobin ABG Oxyhemoglobin ABG Potassium ABG Glucose Oxyhemoglobin Carboxyhemoglobin Sodium Potassium Chloride Carbon Dioxide BUN Creatinine Glucose POC Glucose 120 H 111 H 134 H Calcium Ferritin Total Bilirubin Alkaline Phosphatase Lactate Dehydrogenase Total Creatine Kinase CK-MB (CK-2) Rel Index Troponin T C-Reactive Protein Total Protein Albumin Prealbumin LDL Cholesterol Direct HDL Cholesterol Arterial Blood Glucose Arterial Blood Ionized Calcium Urine WBC (Auto) 03/27/20 03/27/20 03/27/20 05:41 05:59 05:59 WBC 18.6 H RBC Hgb 10.1 L Hct 31.4 L MCV MCH RDW 17.2 H Plt Count Lymph % (Auto) 8.0 L [place] % (Auto) Lymph # (Auto) [place] # (Auto) 1.2 H Seg Neutrophils % 84.7 H Seg Neuts % (Manual) Lymphocytes % (Manual) Monocytes % (Manual) Basophils % (Manual) Seg Neutrophils # 15.8 H Seg Neutrophils # Man Lymphocytes # (Manual) Monocytes # (Manual) Eosinophils # (Manual) Basophils # (Manual) PT INR D-Dimer ABG pH POC ABG pCO2 POC ABG pO2 ABG pO2 ABG HCO3 ABG O2 Saturation ABG Base Excess ABG Hemoglobin ABG Oxyhemoglobin ABG Potassium ABG Glucose Oxyhemoglobin Carboxyhemoglobin Sodium Potassium Chloride Carbon Dioxide 34 H BUN Creatinine < 0.2 L Glucose 127 H POC Glucose 129 H Calcium Ferritin Total Bilirubin Alkaline Phosphatase Lactate Dehydrogenase Total Creatine Kinase CK-MB (CK-2) Rel Index Troponin T C-Reactive Protein Total Protein Albumin Prealbumin LDL Cholesterol Direct HDL Cholesterol Arterial Blood Glucose Arterial Blood Ionized Calcium Urine WBC (Auto) 03/27/20 03/27/20 03/28/20 17:28 23:22 05:23 WBC RBC Hgb Hct MCV MCH RDW Plt Count Lymph % (Auto) [place] % (Auto) Lymph # (Auto) [place] # (Auto) Seg Neutrophils % Seg Neuts % (Manual) Lymphocytes % (Manual) Monocytes % (Manual) Basophils % (Manual) Seg Neutrophils # Seg Neutrophils # Man Lymphocytes # (Manual) Monocytes # (Manual) Eosinophils # (Manual) Basophils # (Manual) PT INR D-Dimer ABG pH POC ABG pCO2 POC ABG pO2 ABG pO2 ABG HCO3 ABG O2 Saturation ABG Base Excess ABG Hemoglobin ABG Oxyhemoglobin ABG Potassium ABG Glucose Oxyhemoglobin Carboxyhemoglobin Sodium Potassium Chloride Carbon Dioxide BUN Creatinine Glucose POC Glucose 108 H 119 H 129 H Calcium Ferritin Total Bilirubin Alkaline Phosphatase Lactate Dehydrogenase Total Creatine Kinase CK-MB (CK-2) Rel Index Troponin T C-Reactive Protein Total Protein Albumin Prealbumin LDL Cholesterol Direct HDL Cholesterol Arterial Blood Glucose Arterial Blood Ionized Calcium Urine WBC (Auto) 03/28/20 03/28/20 03/28/20 10:28 10:28 11:36 WBC 23.6 H RBC 3.62 L Hgb 10.0 L Hct 30.8 L MCV MCH RDW 16.4 H Plt Count Lymph % (Auto) [place] % (Auto) Lymph # (Auto) [place] # (Auto) Seg Neutrophils % Seg Neuts % (Manual) 89.0 H Lymphocytes % (Manual) 5.0 L Monocytes % (Manual) Basophils % (Manual) Seg Neutrophils # Seg Neutrophils # Man 21.0 H Lymphocytes # (Manual) Monocytes # (Manual) 1.2 H Eosinophils # (Manual) Basophils # (Manual) 0.2 H PT INR D-Dimer ABG pH POC ABG pCO2 POC ABG pO2 ABG pO2 ABG HCO3 ABG O2 Saturation ABG Base Excess ABG Hemoglobin ABG Oxyhemoglobin ABG Potassium ABG Glucose Oxyhemoglobin Carboxyhemoglobin Sodium 134 L Potassium Chloride 94.2 L Carbon Dioxide 35 H BUN Creatinine < 0.2 L Glucose 134 H POC Glucose Calcium Ferritin Total Bilirubin Alkaline Phosphatase Lactate Dehydrogenase Total Creatine Kinase CK-MB (CK-2) Rel Index Troponin T C-Reactive Protein Total Protein Albumin Prealbumin LDL Cholesterol Direct HDL Cholesterol Arterial Blood Glucose Arterial Blood Ionized Calcium Urine WBC (Auto) 39.0 H 03/28/20 03/28/20 03/28/20 11:51 17:08 17:17 WBC RBC Hgb Hct MCV MCH RDW Plt Count Lymph % (Auto) [place] % (Auto) Lymph # (Auto) [place] # (Auto) Seg Neutrophils % Seg Neuts % (Manual) Lymphocytes % (Manual) Monocytes % (Manual) Basophils % (Manual) Seg Neutrophils # Seg Neutrophils # Man Lymphocytes # (Manual) Monocytes # (Manual) Eosinophils # (Manual) Basophils # (Manual) PT INR D-Dimer ABG pH POC ABG pCO2 POC ABG pO2 ABG pO2 ABG HCO3 ABG O2 Saturation ABG Base Excess ABG Hemoglobin ABG Oxyhemoglobin ABG Potassium ABG Glucose Oxyhemoglobin Carboxyhemoglobin Sodium Potassium Chloride Carbon Dioxide BUN Creatinine Glucose POC Glucose 123 H 112 H Calcium Ferritin Total Bilirubin Alkaline Phosphatase Lactate Dehydrogenase Total Creatine Kinase 47 L CK-MB (CK-2) Rel Index 4.6 H Troponin T 0.090 H C-Reactive Protein Total Protein Albumin Prealbumin LDL Cholesterol Direct HDL Cholesterol Arterial Blood Glucose Arterial Blood Ionized Calcium Urine WBC (Auto) 03/28/20 03/29/20 03/29/20 23:22 05:22 10:58 WBC RBC Hgb Hct MCV MCH RDW Plt Count Lymph % (Auto) [place] % (Auto) Lymph # (Auto) [place] # (Auto) Seg Neutrophils % Seg Neuts % (Manual) Lymphocytes % (Manual) Monocytes % (Manual) Basophils % (Manual) Seg Neutrophils # Seg Neutrophils # Man Lymphocytes # (Manual) Monocytes # (Manual) Eosinophils # (Manual) Basophils # (Manual) PT INR D-Dimer ABG pH POC ABG pCO2 POC ABG pO2 ABG pO2 ABG HCO3 ABG O2 Saturation ABG Base Excess ABG Hemoglobin ABG Oxyhemoglobin ABG Potassium ABG Glucose Oxyhemoglobin Carboxyhemoglobin Sodium Potassium Chloride Carbon Dioxide BUN Creatinine Glucose POC Glucose 122 H 116 H 133 H Calcium Ferritin Total Bilirubin Alkaline Phosphatase Lactate Dehydrogenase Total Creatine Kinase CK-MB (CK-2) Rel Index Troponin T C-Reactive Protein Total Protein Albumin Prealbumin LDL Cholesterol Direct HDL Cholesterol Arterial Blood Glucose Arterial Blood Ionized Calcium Urine WBC (Auto) 03/29/20 03/29/20 03/30/20 17:18 23:14 04:57 WBC RBC Hgb Hct MCV MCH RDW Plt Count Lymph % (Auto) [place] % (Auto) Lymph # (Auto) [place] # (Auto) Seg Neutrophils % Seg Neuts % (Manual) Lymphocytes % (Manual) Monocytes % (Manual) Basophils % (Manual) Seg Neutrophils # Seg Neutrophils # Man Lymphocytes # (Manual) Monocytes # (Manual) Eosinophils # (Manual) Basophils # (Manual) PT INR D-Dimer ABG pH POC ABG pCO2 POC ABG pO2 ABG pO2 ABG HCO3 ABG O2 Saturation ABG Base Excess ABG Hemoglobin ABG Oxyhemoglobin ABG Potassium ABG Glucose Oxyhemoglobin Carboxyhemoglobin Sodium Potassium Chloride Carbon Dioxide BUN Creatinine Glucose POC Glucose 111 H 114 H 130 H Calcium Ferritin Total Bilirubin Alkaline Phosphatase Lactate Dehydrogenase Total Creatine Kinase CK-MB (CK-2) Rel Index Troponin T C-Reactive Protein Total Protein Albumin Prealbumin LDL Cholesterol Direct HDL Cholesterol Arterial Blood Glucose Arterial Blood Ionized Calcium Urine WBC (Auto) 1203/30/20 03/30/20 11:38 14:47 14:47 WBC 19.9 H RBC Hgb 10.9 L Hct 34.4 L MCV MCH 27 L RDW 16.5 H Plt Count 441 H Lymph % (Auto) 6.4 L [place] % (Auto) Lymph # (Auto) [place] # (Auto) 1.4 H Seg Neutrophils % 86.1 H Seg Neuts % (Manual) Lymphocytes % (Manual) Monocytes % (Manual) Basophils % (Manual) Seg Neutrophils # 17.1 H Seg Neutrophils # Man Lymphocytes # (Manual) Monocytes # (Manual) Eosinophils # (Manual) Basophils # (Manual) PT INR D-Dimer ABG pH POC ABG pCO2 POC ABG pO2 ABG pO2 ABG HCO3 ABG O2 Saturation ABG Base Excess ABG Hemoglobin ABG Oxyhemoglobin ABG Potassium ABG Glucose Oxyhemoglobin Carboxyhemoglobin Sodium 133 L Potassium Chloride 94.6 L Carbon Dioxide 33 H BUN Creatinine < 0.2 L Glucose 194 H POC Glucose 139 H Calcium Ferritin Total Bilirubin Alkaline Phosphatase Lactate Dehydrogenase Total Creatine Kinase CK-MB (CK-2) Rel Index Troponin T C-Reactive Protein Total Protein Albumin 2.8 L Prealbumin LDL Cholesterol Direct HDL Cholesterol Arterial Blood Glucose Arterial Blood Ionized Calcium Urine WBC (Auto) 03/30/20 03/31/20 03/31/20 17:07 05:02 15:21 WBC RBC Hgb Hct MCV MCH RDW Plt Count Lymph % (Auto) [place] % (Auto) Lymph # (Auto) [place] # (Auto) Seg Neutrophils % Seg Neuts % (Manual) Lymphocytes % (Manual) Monocytes % (Manual) Basophils % (Manual) Seg Neutrophils # Seg Neutrophils # Man Lymphocytes # (Manual) Monocytes # (Manual) Eosinophils # (Manual) Basophils # (Manual) PT INR D-Dimer ABG pH POC ABG pCO2 POC ABG pO2 ABG pO2 ABG HCO3 ABG O2 Saturation ABG Base Excess ABG Hemoglobin ABG Oxyhemoglobin ABG Potassium ABG Glucose Oxyhemoglobin Carboxyhemoglobin Sodium Potassium Chloride Carbon Dioxide BUN Creatinine Glucose POC Glucose 163 H 108 H 110 H Calcium Ferritin Total Bilirubin Alkaline Phosphatase Lactate Dehydrogenase Total Creatine Kinase CK-MB (CK-2) Rel Index Troponin T C-Reactive Protein Total Protein Albumin Prealbumin LDL Cholesterol Direct HDL Cholesterol Arterial Blood Glucose Arterial Blood Ionized Calcium Urine WBC (Auto) 03/31/20 03/31/20 04/01/20 17:58 23:19 05:09 WBC RBC Hgb Hct MCV MCH RDW Plt Count Lymph % (Auto) [place] % (Auto) Lymph # (Auto) [place] # (Auto) Seg Neutrophils % Seg Neuts % (Manual) Lymphocytes % (Manual) Monocytes % (Manual) Basophils % (Manual) Seg Neutrophils # Seg Neutrophils # Man Lymphocytes # (Manual) Monocytes # (Manual) Eosinophils # (Manual) Basophils # (Manual) PT INR D-Dimer ABG pH POC ABG pCO2 POC ABG pO2 ABG pO2 ABG HCO3 ABG O2 Saturation ABG Base Excess ABG Hemoglobin ABG Oxyhemoglobin ABG Potassium ABG Glucose Oxyhemoglobin Carboxyhemoglobin Sodium Potassium Chloride Carbon Dioxide BUN Creatinine Glucose POC Glucose 110 H 131 H 124 H Calcium Ferritin Total Bilirubin Alkaline Phosphatase Lactate Dehydrogenase Total Creatine Kinase CK-MB (CK-2) Rel Index Troponin T C-Reactive Protein Total Protein Albumin Prealbumin LDL Cholesterol Direct HDL Cholesterol Arterial Blood Glucose Arterial Blood Ionized Calcium Urine WBC (Auto) 04/01/20 04/01/20 04/01/20 11:50 17:01 23:21 WBC RBC Hgb Hct MCV MCH RDW Plt Count Lymph % (Auto) [place] % (Auto) Lymph # (Auto) [place] # (Auto) Seg Neutrophils % Seg Neuts % (Manual) Lymphocytes % (Manual) Monocytes % (Manual) Basophils % (Manual) Seg Neutrophils # Seg Neutrophils # Man Lymphocytes # (Manual) Monocytes # (Manual) Eosinophils # (Manual) Basophils # (Manual) PT INR D-Dimer ABG pH POC ABG pCO2 POC ABG pO2 ABG pO2 ABG HCO3 ABG O2 Saturation ABG Base Excess ABG Hemoglobin ABG Oxyhemoglobin ABG Potassium ABG Glucose Oxyhemoglobin Carboxyhemoglobin Sodium Potassium Chloride Carbon Dioxide BUN Creatinine Glucose POC Glucose 136 H 115 H 124 H Calcium Ferritin Total Bilirubin Alkaline Phosphatase Lactate Dehydrogenase Total Creatine Kinase CK-MB (CK-2) Rel Index Troponin T C-Reactive Protein Total Protein Albumin Prealbumin LDL Cholesterol Direct HDL Cholesterol Arterial Blood Glucose Arterial Blood Ionized Calcium Urine WBC (Auto) 04/02/20 04/02/20 04/02/20 05:27 11:58 17:58 WBC RBC Hgb Hct MCV MCH RDW Plt Count Lymph % (Auto) [place] % (Auto) Lymph # (Auto) [place] # (Auto) Seg Neutrophils % Seg Neuts % (Manual) Lymphocytes % (Manual) Monocytes % (Manual) Basophils % (Manual) Seg Neutrophils # Seg Neutrophils # Man Lymphocytes # (Manual) Monocytes # (Manual) Eosinophils # (Manual) Basophils # (Manual) PT INR D-Dimer ABG pH POC ABG pCO2 POC ABG pO2 ABG pO2 ABG HCO3 ABG O2 Saturation ABG Base Excess ABG Hemoglobin ABG Oxyhemoglobin ABG Potassium ABG Glucose Oxyhemoglobin Carboxyhemoglobin Sodium Potassium Chloride Carbon Dioxide BUN Creatinine Glucose POC Glucose 117 H 133 H 122 H Calcium Ferritin Total Bilirubin Alkaline Phosphatase Lactate Dehydrogenase Total Creatine Kinase CK-MB (CK-2) Rel Index Troponin T C-Reactive Protein Total Protein Albumin Prealbumin LDL Cholesterol Direct HDL Cholesterol Arterial Blood Glucose Arterial Blood Ionized Calcium Urine WBC (Auto) 04/02/20 04/03/20 04/03/20 23:12 05:11 11:11 WBC RBC Hgb Hct MCV MCH RDW Plt Count Lymph % (Auto) [place] % (Auto) Lymph # (Auto) [place] # (Auto) Seg Neutrophils % Seg Neuts % (Manual) Lymphocytes % (Manual) Monocytes % (Manual) Basophils % (Manual) Seg Neutrophils # Seg Neutrophils # Man Lymphocytes # (Manual) Monocytes # (Manual) Eosinophils # (Manual) Basophils # (Manual) PT INR D-Dimer ABG pH POC ABG pCO2 POC ABG pO2 ABG pO2 ABG HCO3 ABG O2 Saturation ABG Base Excess ABG Hemoglobin ABG Oxyhemoglobin ABG Potassium ABG Glucose Oxyhemoglobin Carboxyhemoglobin Sodium Potassium Chloride Carbon Dioxide BUN Creatinine Glucose POC Glucose 130 H 139 H 136 H Calcium Ferritin Total Bilirubin Alkaline Phosphatase Lactate Dehydrogenase Total Creatine Kinase CK-MB (CK-2) Rel Index Troponin T C-Reactive Protein Total Protein Albumin Prealbumin LDL Cholesterol Direct HDL Cholesterol Arterial Blood Glucose Arterial Blood Ionized Calcium Urine WBC (Auto) 04/03/20 04/03/20 04/04/20 16:51 23:25 05:29 WBC RBC Hgb Hct MCV MCH RDW Plt Count Lymph % (Auto) [place] % (Auto) Lymph # (Auto) [place] # (Auto) Seg Neutrophils % Seg Neuts % (Manual) Lymphocytes % (Manual) Monocytes % (Manual) Basophils % (Manual) Seg Neutrophils # Seg Neutrophils # Man Lymphocytes # (Manual) Monocytes # (Manual) Eosinophils # (Manual) Basophils # (Manual) PT INR D-Dimer ABG pH POC ABG pCO2 POC ABG pO2 ABG pO2 ABG HCO3 ABG O2 Saturation ABG Base Excess ABG Hemoglobin ABG Oxyhemoglobin ABG Potassium ABG Glucose Oxyhemoglobin Carboxyhemoglobin Sodium Potassium Chloride Carbon Dioxide BUN Creatinine Glucose POC Glucose 118 H 111 H 126 H Calcium Ferritin Total Bilirubin Alkaline Phosphatase Lactate Dehydrogenase Total Creatine Kinase CK-MB (CK-2) Rel Index Troponin T C-Reactive Protein Total Protein Albumin Prealbumin LDL Cholesterol Direct HDL Cholesterol Arterial Blood Glucose Arterial Blood Ionized Calcium Urine WBC (Auto) 04/04/20 04/04/20 04/04/20 11:47 17:41 23:05 WBC RBC Hgb Hct MCV MCH RDW Plt Count Lymph % (Auto) [place] % (Auto) Lymph # (Auto) [place] # (Auto) Seg Neutrophils % Seg Neuts % (Manual) Lymphocytes % (Manual) Monocytes % (Manual) Basophils % (Manual) Seg Neutrophils # Seg Neutrophils # Man Lymphocytes # (Manual) Monocytes # (Manual) Eosinophils # (Manual) Basophils # (Manual) PT INR D-Dimer ABG pH POC ABG pCO2 POC ABG pO2 ABG pO2 ABG HCO3 ABG O2 Saturation ABG Base Excess ABG Hemoglobin ABG Oxyhemoglobin ABG Potassium ABG Glucose Oxyhemoglobin Carboxyhemoglobin Sodium Potassium Chloride Carbon Dioxide BUN Creatinine Glucose POC Glucose 123 H 120 H 119 H Calcium Ferritin Total Bilirubin Alkaline Phosphatase Lactate Dehydrogenase Total Creatine Kinase CK-MB (CK-2) Rel Index Troponin T C-Reactive Protein Total Protein Albumin Prealbumin LDL Cholesterol Direct HDL Cholesterol Arterial Blood Glucose Arterial Blood Ionized Calcium Urine WBC (Auto) 04/05/20 04/05/20 04/05/20 05:14 12:16 18:48 WBC RBC Hgb Hct MCV MCH RDW Plt Count Lymph % (Auto) [place] % (Auto) Lymph # (Auto) [place] # (Auto) Seg Neutrophils % Seg Neuts % (Manual) Lymphocytes % (Manual) Monocytes % (Manual) Basophils % (Manual) Seg Neutrophils # Seg Neutrophils # Man Lymphocytes # (Manual) Monocytes # (Manual) Eosinophils # (Manual) Basophils # (Manual) PT INR D-Dimer ABG pH POC ABG pCO2 POC ABG pO2 ABG pO2 ABG HCO3 ABG O2 Saturation ABG Base Excess ABG Hemoglobin ABG Oxyhemoglobin ABG Potassium ABG Glucose Oxyhemoglobin Carboxyhemoglobin Sodium Potassium Chloride Carbon Dioxide BUN Creatinine Glucose POC Glucose 123 H 148 H 106 H Calcium Ferritin Total Bilirubin Alkaline Phosphatase Lactate Dehydrogenase Total Creatine Kinase CK-MB (CK-2) Rel Index Troponin T C-Reactive Protein Total Protein Albumin Prealbumin LDL Cholesterol Direct HDL Cholesterol Arterial Blood Glucose Arterial Blood Ionized Calcium Urine WBC (Auto) 04/06/20 04/06/20 04/06/20 00:47 03:26 08:24 WBC RBC Hgb Hct MCV MCH RDW Plt Count Lymph % (Auto) [place] % (Auto) Lymph # (Auto) [place] # (Auto) Seg Neutrophils % Seg Neuts % (Manual) Lymphocytes % (Manual) Monocytes % (Manual) Basophils % (Manual) Seg Neutrophils # Seg Neutrophils # Man Lymphocytes # (Manual) Monocytes # (Manual) Eosinophils # (Manual) Basophils # (Manual) PT INR D-Dimer ABG pH POC ABG pCO2 POC ABG pO2 ABG pO2 ABG HCO3 ABG O2 Saturation ABG Base Excess ABG Hemoglobin ABG Oxyhemoglobin ABG Potassium ABG Glucose Oxyhemoglobin Carboxyhemoglobin Sodium Potassium Chloride Carbon Dioxide BUN Creatinine Glucose POC Glucose 129 H 134 H 131 H Calcium Ferritin Total Bilirubin Alkaline Phosphatase Lactate Dehydrogenase Total Creatine Kinase CK-MB (CK-2) Rel Index Troponin T C-Reactive Protein Total Protein Albumin Prealbumin LDL Cholesterol Direct HDL Cholesterol Arterial Blood Glucose Arterial Blood Ionized Calcium Urine WBC (Auto) 04/06/20 04/06/20 04/06/20 11:16 16:27 23:01 WBC RBC Hgb Hct MCV MCH RDW Plt Count Lymph % (Auto) [place] % (Auto) Lymph # (Auto) [place] # (Auto) Seg Neutrophils % Seg Neuts % (Manual) Lymphocytes % (Manual) Monocytes % (Manual) Basophils % (Manual) Seg Neutrophils # Seg Neutrophils # Man Lymphocytes # (Manual) Monocytes # (Manual) Eosinophils # (Manual) Basophils # (Manual) PT INR D-Dimer ABG pH POC ABG pCO2 POC ABG pO2 ABG pO2 ABG HCO3 ABG O2 Saturation ABG Base Excess ABG Hemoglobin ABG Oxyhemoglobin ABG Potassium ABG Glucose Oxyhemoglobin Carboxyhemoglobin Sodium Potassium Chloride Carbon Dioxide BUN Creatinine Glucose POC Glucose 131 H 107 H 125 H Calcium Ferritin Total Bilirubin Alkaline Phosphatase Lactate Dehydrogenase Total Creatine Kinase CK-MB (CK-2) Rel Index Troponin T C-Reactive Protein Total Protein Albumin Prealbumin LDL Cholesterol Direct HDL Cholesterol Arterial Blood Glucose Arterial Blood Ionized Calcium Urine WBC (Auto) 04/07/20 04/07/20 04/07/20 05:24 12:41 17:40 WBC RBC Hgb Hct MCV MCH RDW Plt Count Lymph % (Auto) [place] % (Auto) Lymph # (Auto) [place] # (Auto) Seg Neutrophils % Seg Neuts % (Manual) Lymphocytes % (Manual) Monocytes % (Manual) Basophils % (Manual) Seg Neutrophils # Seg Neutrophils # Man Lymphocytes # (Manual) Monocytes # (Manual) Eosinophils # (Manual) Basophils # (Manual) PT INR D-Dimer ABG pH POC ABG pCO2 POC ABG pO2 ABG pO2 ABG HCO3 ABG O2 Saturation ABG Base Excess ABG Hemoglobin ABG Oxyhemoglobin ABG Potassium ABG Glucose Oxyhemoglobin Carboxyhemoglobin Sodium Potassium Chloride Carbon Dioxide BUN Creatinine Glucose POC Glucose 125 H 145 H 123 H Calcium Ferritin Total Bilirubin Alkaline Phosphatase Lactate Dehydrogenase Total Creatine Kinase CK-MB (CK-2) Rel Index Troponin T C-Reactive Protein Total Protein Albumin Prealbumin LDL Cholesterol Direct HDL Cholesterol Arterial Blood Glucose Arterial Blood Ionized Calcium Urine WBC (Auto) 04/07/20 04/08/20 04/08/20 23:22 05:40 11:29 WBC RBC Hgb Hct MCV MCH RDW Plt Count Lymph % (Auto) [place] % (Auto) Lymph # (Auto) [place] # (Auto) Seg Neutrophils % Seg Neuts % (Manual) Lymphocytes % (Manual) Monocytes % (Manual) Basophils % (Manual) Seg Neutrophils # Seg Neutrophils # Man Lymphocytes # (Manual) Monocytes # (Manual) Eosinophils # (Manual) Basophils # (Manual) PT INR D-Dimer ABG pH POC ABG pCO2 POC ABG pO2 ABG pO2 ABG HCO3 ABG O2 Saturation ABG Base Excess ABG Hemoglobin ABG Oxyhemoglobin ABG Potassium ABG Glucose Oxyhemoglobin Carboxyhemoglobin Sodium Potassium Chloride Carbon Dioxide BUN Creatinine Glucose POC Glucose 133 H 125 H 116 H Calcium Ferritin Total Bilirubin Alkaline Phosphatase Lactate Dehydrogenase Total Creatine Kinase CK-MB (CK-2) Rel Index Troponin T C-Reactive Protein Total Protein Albumin Prealbumin LDL Cholesterol Direct HDL Cholesterol Arterial Blood Glucose Arterial Blood Ionized Calcium Urine WBC (Auto) 04/08/20 04/09/20 04/09/20 17:43 05:47 12:22 WBC RBC Hgb Hct MCV MCH RDW Plt Count Lymph % (Auto) [place] % (Auto) Lymph # (Auto) [place] # (Auto) Seg Neutrophils % Seg Neuts % (Manual) Lymphocytes % (Manual) Monocytes % (Manual) Basophils % (Manual) Seg Neutrophils # Seg Neutrophils # Man Lymphocytes # (Manual) Monocytes # (Manual) Eosinophils # (Manual) Basophils # (Manual) PT INR D-Dimer ABG pH POC ABG pCO2 POC ABG pO2 ABG pO2 ABG HCO3 ABG O2 Saturation ABG Base Excess ABG Hemoglobin ABG Oxyhemoglobin ABG Potassium ABG Glucose Oxyhemoglobin Carboxyhemoglobin Sodium Potassium Chloride Carbon Dioxide BUN Creatinine Glucose POC Glucose 123 H 108 H 116 H Calcium Ferritin Total Bilirubin Alkaline Phosphatase Lactate Dehydrogenase Total Creatine Kinase CK-MB (CK-2) Rel Index Troponin T C-Reactive Protein Total Protein Albumin Prealbumin LDL Cholesterol Direct HDL Cholesterol Arterial Blood Glucose Arterial Blood Ionized Calcium Urine WBC (Auto) 04/09/20 04/09/20 04/10/20 17:24 23:52 06:10 WBC RBC Hgb Hct MCV MCH RDW Plt Count Lymph % (Auto) [place] % (Auto) Lymph # (Auto) [place] # (Auto) Seg Neutrophils % Seg Neuts % (Manual) Lymphocytes % (Manual) Monocytes % (Manual) Basophils % (Manual) Seg Neutrophils # Seg Neutrophils # Man Lymphocytes # (Manual) Monocytes # (Manual) Eosinophils # (Manual) Basophils # (Manual) PT INR D-Dimer ABG pH POC ABG pCO2 POC ABG pO2 ABG pO2 ABG HCO3 ABG O2 Saturation ABG Base Excess ABG Hemoglobin ABG Oxyhemoglobin ABG Potassium ABG Glucose Oxyhemoglobin Carboxyhemoglobin Sodium Potassium Chloride Carbon Dioxide BUN Creatinine Glucose POC Glucose 108 H 126 H 122 H Calcium Ferritin Total Bilirubin Alkaline Phosphatase Lactate Dehydrogenase Total Creatine Kinase CK-MB (CK-2) Rel Index Troponin T C-Reactive Protein Total Protein Albumin Prealbumin LDL Cholesterol Direct HDL Cholesterol Arterial Blood Glucose Arterial Blood Ionized Calcium Urine WBC (Auto) 04/10/20 04/10/20 04/10/20 11:27 18:11 23:24 WBC RBC Hgb Hct MCV MCH RDW Plt Count Lymph % (Auto) [place] % (Auto) Lymph # (Auto) [place] # (Auto) Seg Neutrophils % Seg Neuts % (Manual) Lymphocytes % (Manual) Monocytes % (Manual) Basophils % (Manual) Seg Neutrophils # Seg Neutrophils # Man Lymphocytes # (Manual) Monocytes # (Manual) Eosinophils # (Manual) Basophils # (Manual) PT INR D-Dimer ABG pH POC ABG pCO2 POC ABG pO2 ABG pO2 ABG HCO3 ABG O2 Saturation ABG Base Excess ABG Hemoglobin ABG Oxyhemoglobin ABG Potassium ABG Glucose Oxyhemoglobin Carboxyhemoglobin Sodium Potassium Chloride Carbon Dioxide BUN Creatinine Glucose POC Glucose 129 H 125 H 107 H Calcium Ferritin Total Bilirubin Alkaline Phosphatase Lactate Dehydrogenase Total Creatine Kinase CK-MB (CK-2) Rel Index Troponin T C-Reactive Protein Total Protein Albumin Prealbumin LDL Cholesterol Direct HDL Cholesterol Arterial Blood Glucose Arterial Blood Ionized Calcium Urine WBC (Auto) 04/11/20 04/11/20 04/11/20 05:28 11:46 23:49 WBC RBC Hgb Hct MCV MCH RDW Plt Count Lymph % (Auto) [place] % (Auto) Lymph # (Auto) [place] # (Auto) Seg Neutrophils % Seg Neuts % (Manual) Lymphocytes % (Manual) Monocytes % (Manual) Basophils % (Manual) Seg Neutrophils # Seg Neutrophils # Man Lymphocytes # (Manual) Monocytes # (Manual) Eosinophils # (Manual) Basophils # (Manual) PT INR D-Dimer ABG pH POC ABG pCO2 POC ABG pO2 ABG pO2 ABG HCO3 ABG O2 Saturation ABG Base Excess ABG Hemoglobin ABG Oxyhemoglobin ABG Potassium ABG Glucose Oxyhemoglobin Carboxyhemoglobin Sodium Potassium Chloride Carbon Dioxide BUN Creatinine Glucose POC Glucose 122 H 122 H 116 H Calcium Ferritin Total Bilirubin Alkaline Phosphatase Lactate Dehydrogenase Total Creatine Kinase CK-MB (CK-2) Rel Index Troponin T C-Reactive Protein Total Protein Albumin Prealbumin LDL Cholesterol Direct HDL Cholesterol Arterial Blood Glucose Arterial Blood Ionized Calcium Urine WBC (Auto) 04/12/20 04/12/20 04/12/20 09:07 09:07 11:39 WBC 13.1 H RBC 3.59 L Hgb 9.5 L Hct 29.8 L MCV 83 L MCH 26 L RDW 16.6 H Plt Count 591 H Lymph % (Auto) [place] % (Auto) Lymph # (Auto) [place] # (Auto) Seg Neutrophils % Seg Neuts % (Manual) 86.0 H Lymphocytes % (Manual) 7.0 L Monocytes % (Manual) Basophils % (Manual) Seg Neutrophils # Seg Neutrophils # Man 11.3 H Lymphocytes # (Manual) 0.9 L Monocytes # (Manual) Eosinophils # (Manual) Basophils # (Manual) PT INR D-Dimer ABG pH POC ABG pCO2 POC ABG pO2 ABG pO2 ABG HCO3 ABG O2 Saturation ABG Base Excess ABG Hemoglobin ABG Oxyhemoglobin ABG Potassium ABG Glucose Oxyhemoglobin Carboxyhemoglobin Sodium Potassium Chloride Carbon Dioxide 36 H BUN Creatinine < 0.2 L Glucose 132 H POC Glucose 136 H Calcium Ferritin Total Bilirubin Alkaline Phosphatase Lactate Dehydrogenase Total Creatine Kinase CK-MB (CK-2) Rel Index Troponin T C-Reactive Protein Total Protein Albumin 2.7 L Prealbumin LDL Cholesterol Direct HDL Cholesterol Arterial Blood Glucose Arterial Blood Ionized Calcium Urine WBC (Auto) 04/12/20 04/12/20 04/13/20 18:13 23:07 05:45 WBC RBC Hgb Hct MCV MCH RDW Plt Count Lymph % (Auto) [place] % (Auto) Lymph # (Auto) [place] # (Auto) Seg Neutrophils % Seg Neuts % (Manual) Lymphocytes % (Manual) Monocytes % (Manual) Basophils % (Manual) Seg Neutrophils # Seg Neutrophils # Man Lymphocytes # (Manual) Monocytes # (Manual) Eosinophils # (Manual) Basophils # (Manual) PT INR D-Dimer ABG pH POC ABG pCO2 POC ABG pO2 ABG pO2 ABG HCO3 ABG O2 Saturation ABG Base Excess ABG Hemoglobin ABG Oxyhemoglobin ABG Potassium ABG Glucose Oxyhemoglobin Carboxyhemoglobin Sodium Potassium Chloride Carbon Dioxide BUN Creatinine Glucose POC Glucose 107 H 106 H 125 H Calcium Ferritin Total Bilirubin Alkaline Phosphatase Lactate Dehydrogenase Total Creatine Kinase CK-MB (CK-2) Rel Index Troponin T C-Reactive Protein Total Protein Albumin Prealbumin LDL Cholesterol Direct HDL Cholesterol Arterial Blood Glucose Arterial Blood Ionized Calcium Urine WBC (Auto) 04/13/20 04/13/20 04/13/20 11:18 17:56 23:33 WBC RBC Hgb Hct MCV MCH RDW Plt Count Lymph % (Auto) [place] % (Auto) Lymph # (Auto) [place] # (Auto) Seg Neutrophils % Seg Neuts % (Manual) Lymphocytes % (Manual) Monocytes % (Manual) Basophils % (Manual) Seg Neutrophils # Seg Neutrophils # Man Lymphocytes # (Manual) Monocytes # (Manual) Eosinophils # (Manual) Basophils # (Manual) PT INR D-Dimer ABG pH POC ABG pCO2 POC ABG pO2 ABG pO2 ABG HCO3 ABG O2 Saturation ABG Base Excess ABG Hemoglobin ABG Oxyhemoglobin ABG Potassium ABG Glucose Oxyhemoglobin Carboxyhemoglobin Sodium Potassium Chloride Carbon Dioxide BUN Creatinine Glucose POC Glucose 133 H 110 H 114 H Calcium Ferritin Total Bilirubin Alkaline Phosphatase Lactate Dehydrogenase Total Creatine Kinase CK-MB (CK-2) Rel Index Troponin T C-Reactive Protein Total Protein Albumin Prealbumin LDL Cholesterol Direct HDL Cholesterol Arterial Blood Glucose Arterial Blood Ionized Calcium Urine WBC (Auto) 04/14/20 04/14/20 04/14/20 05:58 11:45 17:48 WBC RBC Hgb Hct MCV MCH RDW Plt Count Lymph % (Auto) [place] % (Auto) Lymph # (Auto) [place] # (Auto) Seg Neutrophils % Seg Neuts % (Manual) Lymphocytes % (Manual) Monocytes % (Manual) Basophils % (Manual) Seg Neutrophils # Seg Neutrophils # Man Lymphocytes # (Manual) Monocytes # (Manual) Eosinophils # (Manual) Basophils # (Manual) PT INR D-Dimer ABG pH POC ABG pCO2 POC ABG pO2 ABG pO2 ABG HCO3 ABG O2 Saturation ABG Base Excess ABG Hemoglobin ABG Oxyhemoglobin ABG Potassium ABG Glucose Oxyhemoglobin Carboxyhemoglobin Sodium Potassium Chloride Carbon Dioxide BUN Creatinine Glucose POC Glucose 115 H 122 H 124 H Calcium Ferritin Total Bilirubin Alkaline Phosphatase Lactate Dehydrogenase Total Creatine Kinase CK-MB (CK-2) Rel Index Troponin T C-Reactive Protein Total Protein Albumin Prealbumin LDL Cholesterol Direct HDL Cholesterol Arterial Blood Glucose Arterial Blood Ionized Calcium Urine WBC (Auto) 04/15/20 04/15/20 04/15/20 00:11 05:38 11:31 WBC RBC Hgb Hct MCV MCH RDW Plt Count Lymph % (Auto) [place] % (Auto) Lymph # (Auto) [place] # (Auto) Seg Neutrophils % Seg Neuts % (Manual) Lymphocytes % (Manual) Monocytes % (Manual) Basophils % (Manual) Seg Neutrophils # Seg Neutrophils # Man Lymphocytes # (Manual) Monocytes # (Manual) Eosinophils # (Manual) Basophils # (Manual) PT INR D-Dimer ABG pH POC ABG pCO2 POC ABG pO2 ABG pO2 ABG HCO3 ABG O2 Saturation ABG Base Excess ABG Hemoglobin ABG Oxyhemoglobin ABG Potassium ABG Glucose Oxyhemoglobin Carboxyhemoglobin Sodium Potassium Chloride Carbon Dioxide BUN Creatinine Glucose POC Glucose 120 H 109 H 123 H Calcium Ferritin Total Bilirubin Alkaline Phosphatase Lactate Dehydrogenase Total Creatine Kinase CK-MB (CK-2) Rel Index Troponin T C-Reactive Protein Total Protein Albumin Prealbumin LDL Cholesterol Direct HDL Cholesterol Arterial Blood Glucose Arterial Blood Ionized Calcium Urine WBC (Auto) 12/19/20 12/20/20 12/20/20 17:35 06:00 11:29 WBC RBC Hgb Hct MCV MCH RDW Plt Count Lymph % (Auto) [place] % (Auto) Lymph # (Auto) [place] # (Auto) Seg Neutrophils % Seg Neuts % (Manual) Lymphocytes % (Manual) Monocytes % (Manual) Basophils % (Manual) Seg Neutrophils # Seg Neutrophils # Man Lymphocytes # (Manual) Monocytes # (Manual) Eosinophils # (Manual) Basophils # (Manual) PT INR D-Dimer ABG pH POC ABG pCO2 POC ABG pO2 ABG pO2 ABG HCO3 ABG O2 Saturation ABG Base Excess ABG Hemoglobin ABG Oxyhemoglobin ABG Potassium ABG Glucose Oxyhemoglobin Carboxyhemoglobin Sodium Potassium Chloride Carbon Dioxide BUN Creatinine Glucose POC Glucose 111 H 142 H 108 H Calcium Ferritin Total Bilirubin Alkaline Phosphatase Lactate Dehydrogenase Total Creatine Kinase CK-MB (CK-2) Rel Index Troponin T C-Reactive Protein Total Protein Albumin Prealbumin LDL Cholesterol Direct HDL Cholesterol Arterial Blood Glucose Arterial Blood Ionized Calcium Urine WBC (Auto) 04/17/20 04/17/20 04/17/20 05:09 06:53 06:53 WBC 14.2 H RBC Hgb 10.1 L Hct 31.5 L MCV MCH 27 L RDW 17.2 H Plt Count 643 H Lymph % (Auto) [place] % (Auto) Lymph # (Auto) [place] # (Auto) Seg Neutrophils % Seg Neuts % (Manual) Lymphocytes % (Manual) Monocytes % (Manual) Basophils % (Manual) Seg Neutrophils # Seg Neutrophils # Man Lymphocytes # (Manual) Monocytes # (Manual) Eosinophils # (Manual) Basophils # (Manual) PT INR D-Dimer ABG pH POC ABG pCO2 POC ABG pO2 ABG pO2 ABG HCO3 ABG O2 Saturation ABG Base Excess ABG Hemoglobin ABG Oxyhemoglobin ABG Potassium ABG Glucose Oxyhemoglobin Carboxyhemoglobin Sodium Potassium Chloride 97.7 L Carbon Dioxide 38 H BUN Creatinine < 0.2 L Glucose 126 H POC Glucose 131 H Calcium Ferritin Total Bilirubin Alkaline Phosphatase Lactate Dehydrogenase Total Creatine Kinase CK-MB (CK-2) Rel Index Troponin T C-Reactive Protein Total Protein Albumin Prealbumin LDL Cholesterol Direct HDL Cholesterol Arterial Blood Glucose Arterial Blood Ionized Calcium Urine WBC (Auto) 04/17/20 04/18/20 04/18/20 11:21 00:23 04:01 WBC 15.3 H RBC Hgb 10.1 L Hct 31.9 L MCV 82 L MCH 26 L RDW 17.2 H Plt Count 665 H Lymph % (Auto) 12.9 L [place] % (Auto) Lymph # (Auto) [place] # (Auto) 1.1 H Seg Neutrophils % 78.0 H Seg Neuts % (Manual) Lymphocytes % (Manual) Monocytes % (Manual) Basophils % (Manual) Seg Neutrophils # 11.9 H Seg Neutrophils # Man Lymphocytes # (Manual) Monocytes # (Manual) Eosinophils # (Manual) Basophils # (Manual) PT INR D-Dimer ABG pH POC ABG pCO2 POC ABG pO2 ABG pO2 ABG HCO3 ABG O2 Saturation ABG Base Excess ABG Hemoglobin ABG Oxyhemoglobin ABG Potassium ABG Glucose Oxyhemoglobin Carboxyhemoglobin Sodium Potassium Chloride Carbon Dioxide BUN Creatinine Glucose POC Glucose 140 H 125 H Calcium Ferritin Total Bilirubin Alkaline Phosphatase Lactate Dehydrogenase Total Creatine Kinase CK-MB (CK-2) Rel Index Troponin T C-Reactive Protein Total Protein Albumin Prealbumin LDL Cholesterol Direct HDL Cholesterol Arterial Blood Glucose Arterial Blood Ionized Calcium Urine WBC (Auto) 04/18/20 04/18/20 04/18/20 04:01 11:29 17:30 WBC RBC Hgb Hct MCV MCH RDW Plt Count Lymph % (Auto) [place] % (Auto) Lymph # (Auto) [place] # (Auto) Seg Neutrophils % Seg Neuts % (Manual) Lymphocytes % (Manual) Monocytes % (Manual) Basophils % (Manual) Seg Neutrophils # Seg Neutrophils # Man Lymphocytes # (Manual) Monocytes # (Manual) Eosinophils # (Manual) Basophils # (Manual) PT INR D-Dimer ABG pH POC ABG pCO2 POC ABG pO2 ABG pO2 ABG HCO3 ABG O2 Saturation ABG Base Excess ABG Hemoglobin ABG Oxyhemoglobin ABG Potassium ABG Glucose Oxyhemoglobin Carboxyhemoglobin Sodium Potassium Chloride 97.0 L Carbon Dioxide 38 H BUN Creatinine < 0.2 L Glucose 117 H POC Glucose 136 H 107 H Calcium Ferritin Total Bilirubin Alkaline Phosphatase Lactate Dehydrogenase Total Creatine Kinase CK-MB (CK-2) Rel Index Troponin T C-Reactive Protein Total Protein Albumin Prealbumin LDL Cholesterol Direct HDL Cholesterol Arterial Blood Glucose Arterial Blood Ionized Calcium Urine WBC (Auto) 04/18/20 04/19/20 04/19/20 23:19 06:51 06:51 WBC 12.2 H RBC Hgb 9.8 L Hct 31.1 L MCV 82 L MCH 26 L RDW 17.2 H Plt Count 549 H Lymph % (Auto) 6.5 L [place] % (Auto) Lymph # (Auto) 0.8 L [place] # (Auto) Seg Neutrophils % 86.7 H Seg Neuts % (Manual) Lymphocytes % (Manual) Monocytes % (Manual) Basophils % (Manual) Seg Neutrophils # 10.6 H Seg Neutrophils # Man Lymphocytes # (Manual) Monocytes # (Manual) Eosinophils # (Manual) Basophils # (Manual) PT INR D-Dimer ABG pH POC ABG pCO2 POC ABG pO2 ABG pO2 ABG HCO3 ABG O2 Saturation ABG Base Excess ABG Hemoglobin ABG Oxyhemoglobin ABG Potassium ABG Glucose Oxyhemoglobin Carboxyhemoglobin Sodium Potassium Chloride 97.8 L Carbon Dioxide 38 H BUN Creatinine < 0.2 L Glucose 123 H POC Glucose 127 H Calcium Ferritin Total Bilirubin Alkaline Phosphatase Lactate Dehydrogenase Total Creatine Kinase CK-MB (CK-2) Rel Index Troponin T C-Reactive Protein Total Protein Albumin Prealbumin LDL Cholesterol Direct HDL Cholesterol Arterial Blood Glucose Arterial Blood Ionized Calcium Urine WBC (Auto) 04/19/20 04/19/20 04/20/20 13:41 18:33 05:56 WBC RBC Hgb Hct MCV MCH RDW Plt Count Lymph % (Auto) [place] % (Auto) Lymph # (Auto) [place] # (Auto) Seg Neutrophils % Seg Neuts % (Manual) Lymphocytes % (Manual) Monocytes % (Manual) Basophils % (Manual) Seg Neutrophils # Seg Neutrophils # Man Lymphocytes # (Manual) Monocytes # (Manual) Eosinophils # (Manual) Basophils # (Manual) PT INR D-Dimer ABG pH POC ABG pCO2 POC ABG pO2 ABG pO2 ABG HCO3 ABG O2 Saturation ABG Base Excess ABG Hemoglobin ABG Oxyhemoglobin ABG Potassium ABG Glucose Oxyhemoglobin Carboxyhemoglobin Sodium Potassium Chloride Carbon Dioxide BUN Creatinine Glucose POC Glucose 116 H 124 H 130 H Calcium Ferritin Total Bilirubin Alkaline Phosphatase Lactate Dehydrogenase Total Creatine Kinase CK-MB (CK-2) Rel Index Troponin T C-Reactive Protein Total Protein Albumin Prealbumin LDL Cholesterol Direct HDL Cholesterol Arterial Blood Glucose Arterial Blood Ionized Calcium Urine WBC (Auto) 04/20/20 04/20/20 04/20/20 06:28 06:28 11:46 WBC RBC Hgb 10.2 L Hct 31.5 L MCV 82 L MCH 27 L RDW 17.1 H Plt Count 546 H Lymph % (Auto) 10.0 L [place] % (Auto) 9.8 H Lymph # (Auto) 1.1 L [place] # (Auto) 1.1 H Seg Neutrophils % 78.4 H Seg Neuts % (Manual) Lymphocytes % (Manual) Monocytes % (Manual) Basophils % (Manual) Seg Neutrophils # 8.5 H Seg Neutrophils # Man Lymphocytes # (Manual) Monocytes # (Manual) Eosinophils # (Manual) Basophils # (Manual) PT INR D-Dimer ABG pH POC ABG pCO2 POC ABG pO2 ABG pO2 ABG HCO3 ABG O2 Saturation ABG Base Excess ABG Hemoglobin ABG Oxyhemoglobin ABG Potassium ABG Glucose Oxyhemoglobin Carboxyhemoglobin Sodium Potassium Chloride 97.0 L Carbon Dioxide 38 H BUN Creatinine < 0.2 L Glucose 138 H POC Glucose 130 H Calcium Ferritin Total Bilirubin Alkaline Phosphatase Lactate Dehydrogenase Total Creatine Kinase CK-MB (CK-2) Rel Index Troponin T C-Reactive Protein Total Protein Albumin Prealbumin LDL Cholesterol Direct HDL Cholesterol Arterial Blood Glucose Arterial Blood Ionized Calcium Urine WBC (Auto) 04/20/20 04/21/20 04/21/20 23:31 05:55 05:55 WBC RBC Hgb 10.0 L Hct 31.1 L MCV 82 L MCH 26 L RDW 17.0 H Plt Count 535 H Lymph % (Auto) [place] % (Auto) 9.2 H Lymph # (Auto) 1.1 L [place] # (Auto) Seg Neutrophils % 75.4 H Seg Neuts % (Manual) Lymphocytes % (Manual) Monocytes % (Manual) Basophils % (Manual) Seg Neutrophils # Seg Neutrophils # Man Lymphocytes # (Manual) Monocytes # (Manual) Eosinophils # (Manual) Basophils # (Manual) PT INR D-Dimer ABG pH POC ABG pCO2 POC ABG pO2 ABG pO2 ABG HCO3 ABG O2 Saturation ABG Base Excess ABG Hemoglobin ABG Oxyhemoglobin ABG Potassium ABG Glucose Oxyhemoglobin Carboxyhemoglobin Sodium Potassium Chloride 95.0 L Carbon Dioxide 34 H BUN Creatinine < 0.2 L Glucose 125 H POC Glucose 116 H Calcium Ferritin Total Bilirubin Alkaline Phosphatase Lactate Dehydrogenase Total Creatine Kinase CK-MB (CK-2) Rel Index Troponin T C-Reactive Protein Total Protein Albumin Prealbumin LDL Cholesterol Direct HDL Cholesterol Arterial Blood Glucose Arterial Blood Ionized Calcium Urine WBC (Auto) 04/22/20 04/22/20 04/22/20 00:01 07:45 07:45 WBC RBC Hgb 10.0 L Hct 30.7 L MCV 81 L MCH 27 L RDW 17.1 H Plt Count 490 H Lymph % (Auto) [place] % (Auto) Lymph # (Auto) [place] # (Auto) Seg Neutrophils % Seg Neuts % (Manual) 75.0 H Lymphocytes % (Manual) 11.0 L Monocytes % (Manual) 9.0 H Basophils % (Manual) Seg Neutrophils # Seg Neutrophils # Man Lymphocytes # (Manual) 0.8 L Monocytes # (Manual) Eosinophils # (Manual) Basophils # (Manual) PT INR D-Dimer ABG pH POC ABG pCO2 POC ABG pO2 ABG pO2 ABG HCO3 ABG O2 Saturation ABG Base Excess ABG Hemoglobin ABG Oxyhemoglobin ABG Potassium ABG Glucose Oxyhemoglobin Carboxyhemoglobin Sodium Potassium Chloride 96.3 L Carbon Dioxide 40 H BUN Creatinine < 0.2 L Glucose 109 H POC Glucose 110 H Calcium Ferritin Total Bilirubin Alkaline Phosphatase Lactate Dehydrogenase Total Creatine Kinase CK-MB (CK-2) Rel Index Troponin T C-Reactive Protein Total Protein Albumin Prealbumin LDL Cholesterol Direct HDL Cholesterol Arterial Blood Glucose Arterial Blood Ionized Calcium Urine WBC (Auto) 04/23/20 04/23/20 04/23/20 04:28 04:28 04:28 WBC RBC 3.64 L Hgb 9.7 L Hct 29.4 L MCV 81 L MCH 27 L RDW 17.2 H Plt Count 527 H Lymph % (Auto) [place] % (Auto) 8.9 H Lymph # (Auto) [place] # (Auto) Seg Neutrophils % Seg Neuts % (Manual) Lymphocytes % (Manual) Monocytes % (Manual) Basophils % (Manual) Seg Neutrophils # Seg Neutrophils # Man Lymphocytes # (Manual) Monocytes # (Manual) Eosinophils # (Manual) Basophils # (Manual) PT INR D-Dimer ABG pH POC ABG pCO2 POC ABG pO2 ABG pO2 ABG HCO3 ABG O2 Saturation ABG Base Excess ABG Hemoglobin ABG Oxyhemoglobin ABG Potassium ABG Glucose Oxyhemoglobin Carboxyhemoglobin Sodium Potassium Chloride 96.4 L Carbon Dioxide 32 H D BUN Creatinine < 0.2 L Glucose 134 H POC Glucose Calcium Ferritin Total Bilirubin Alkaline Phosphatase Lactate Dehydrogenase Total Creatine Kinase CK-MB (CK-2) Rel Index Troponin T 0.151 H* C-Reactive Protein Total Protein Albumin Prealbumin LDL Cholesterol Direct HDL Cholesterol 29 L Arterial Blood Glucose Arterial Blood Ionized Calcium Urine WBC (Auto) 04/23/20 04/23/20 04/24/20 06:03 23:41 05:28 WBC RBC 3.56 L Hgb 9.5 L Hct 28.9 L MCV 81 L MCH 27 L RDW 17.4 H Plt Count 462 H Lymph % (Auto) [place] % (Auto) Lymph # (Auto) [place] # (Auto) Seg Neutrophils % Seg Neuts % (Manual) 80.0 H Lymphocytes % (Manual) Monocytes % (Manual) Basophils % (Manual) Seg Neutrophils # Seg Neutrophils # Man Lymphocytes # (Manual) Monocytes # (Manual) Eosinophils # (Manual) Basophils # (Manual) PT INR D-Dimer ABG pH POC ABG pCO2 POC ABG pO2 ABG pO2 ABG HCO3 ABG O2 Saturation ABG Base Excess ABG Hemoglobin ABG Oxyhemoglobin ABG Potassium ABG Glucose Oxyhemoglobin Carboxyhemoglobin Sodium Potassium Chloride Carbon Dioxide BUN Creatinine Glucose POC Glucose 132 H 117 H Calcium Ferritin Total Bilirubin Alkaline Phosphatase Lactate Dehydrogenase Total Creatine Kinase CK-MB (CK-2) Rel Index Troponin T C-Reactive Protein Total Protein Albumin Prealbumin LDL Cholesterol Direct HDL Cholesterol Arterial Blood Glucose Arterial Blood Ionized Calcium Urine WBC (Auto) 04/24/20 04/24/20 04/24/20 05:28 05:28 05:33 WBC RBC Hgb Hct MCV MCH RDW Plt Count Lymph % (Auto) [place] % (Auto) Lymph # (Auto) [place] # (Auto) Seg Neutrophils % Seg Neuts % (Manual) Lymphocytes % (Manual) Monocytes % (Manual) Basophils % (Manual) Seg Neutrophils # Seg Neutrophils # Man Lymphocytes # (Manual) Monocytes # (Manual) Eosinophils # (Manual) Basophils # (Manual) PT INR D-Dimer ABG pH POC ABG pCO2 POC ABG pO2 ABG pO2 ABG HCO3 ABG O2 Saturation ABG Base Excess ABG Hemoglobin ABG Oxyhemoglobin ABG Potassium ABG Glucose Oxyhemoglobin Carboxyhemoglobin Sodium Potassium Chloride 96.1 L Carbon Dioxide 40 H D BUN Creatinine < 0.2 L Glucose 115 H POC Glucose 109 H Calcium Ferritin Total Bilirubin Alkaline Phosphatase Lactate Dehydrogenase Total Creatine Kinase CK-MB (CK-2) Rel Index Troponin T 0.181 H* C-Reactive Protein Total Protein Albumin Prealbumin LDL Cholesterol Direct HDL Cholesterol Arterial Blood Glucose Arterial Blood Ionized Calcium Urine WBC (Auto) 04/24/20 04/24/20 04/25/20 11:17 18:23 00:12 WBC RBC Hgb Hct MCV MCH RDW Plt Count Lymph % (Auto) [place] % (Auto) Lymph # (Auto) [place] # (Auto) Seg Neutrophils % Seg Neuts % (Manual) Lymphocytes % (Manual) Monocytes % (Manual) Basophils % (Manual) Seg Neutrophils # Seg Neutrophils # Man Lymphocytes # (Manual) Monocytes # (Manual) Eosinophils # (Manual) Basophils # (Manual) PT INR D-Dimer ABG pH POC ABG pCO2 POC ABG pO2 ABG pO2 ABG HCO3 ABG O2 Saturation ABG Base Excess ABG Hemoglobin ABG Oxyhemoglobin ABG Potassium ABG Glucose Oxyhemoglobin Carboxyhemoglobin Sodium Potassium Chloride Carbon Dioxide BUN Creatinine Glucose POC Glucose 117 H 109 H 113 H Calcium Ferritin Total Bilirubin Alkaline Phosphatase Lactate Dehydrogenase Total Creatine Kinase CK-MB (CK-2) Rel Index Troponin T C-Reactive Protein Total Protein Albumin Prealbumin LDL Cholesterol Direct HDL Cholesterol Arterial Blood Glucose Arterial Blood Ionized Calcium Urine WBC (Auto) 04/25/20 04/25/20 04/25/20 06:34 06:34 11:28 WBC 11.7 H RBC Hgb 10.0 L Hct 31.7 L MCV 82 L MCH 26 L RDW 17.5 H Plt Count 564 H Lymph % (Auto) [place] % (Auto) Lymph # (Auto) [place] # (Auto) Seg Neutrophils % Seg Neuts % (Manual) 78.0 H Lymphocytes % (Manual) 10.0 L Monocytes % (Manual) 9.0 H Basophils % (Manual) Seg Neutrophils # Seg Neutrophils # Man 9.1 H Lymphocytes # (Manual) Monocytes # (Manual) 1.1 H Eosinophils # (Manual) Basophils # (Manual) PT INR D-Dimer ABG pH POC ABG pCO2 POC ABG pO2 ABG pO2 ABG HCO3 ABG O2 Saturation ABG Base Excess ABG Hemoglobin ABG Oxyhemoglobin ABG Potassium ABG Glucose Oxyhemoglobin Carboxyhemoglobin Sodium Potassium Chloride Carbon Dioxide 39 H BUN Creatinine < 0.2 L Glucose 103 H POC Glucose 112 H Calcium Ferritin Total Bilirubin Alkaline Phosphatase Lactate Dehydrogenase Total Creatine Kinase CK-MB (CK-2) Rel Index Troponin T C-Reactive Protein Total Protein Albumin Prealbumin LDL Cholesterol Direct HDL Cholesterol Arterial Blood Glucose Arterial Blood Ionized Calcium Urine WBC (Auto) 04/27/20 04/27/20 04/27/20 11:48 17:08 23:31 WBC RBC Hgb Hct MCV MCH RDW Plt Count Lymph % (Auto) [place] % (Auto) Lymph # (Auto) [place] # (Auto) Seg Neutrophils % Seg Neuts % (Manual) Lymphocytes % (Manual) Monocytes % (Manual) Basophils % (Manual) Seg Neutrophils # Seg Neutrophils # Man Lymphocytes # (Manual) Monocytes # (Manual) Eosinophils # (Manual) Basophils # (Manual) PT INR D-Dimer ABG pH POC ABG pCO2 POC ABG pO2 ABG pO2 ABG HCO3 ABG O2 Saturation ABG Base Excess ABG Hemoglobin ABG Oxyhemoglobin ABG Potassium ABG Glucose Oxyhemoglobin Carboxyhemoglobin Sodium Potassium Chloride Carbon Dioxide BUN Creatinine Glucose POC Glucose 124 H 118 H 122 H Calcium Ferritin Total Bilirubin Alkaline Phosphatase Lactate Dehydrogenase Total Creatine Kinase CK-MB (CK-2) Rel Index Troponin T C-Reactive Protein Total Protein Albumin Prealbumin LDL Cholesterol Direct HDL Cholesterol Arterial Blood Glucose Arterial Blood Ionized Calcium Urine WBC (Auto) 04/28/20 04/29/20 04/29/20 05:42 00:14 05:30 WBC RBC Hgb Hct MCV MCH RDW Plt Count Lymph % (Auto) [place] % (Auto) Lymph # (Auto) [place] # (Auto) Seg Neutrophils % Seg Neuts % (Manual) Lymphocytes % (Manual) Monocytes % (Manual) Basophils % (Manual) Seg Neutrophils # Seg Neutrophils # Man Lymphocytes # (Manual) Monocytes # (Manual) Eosinophils # (Manual) Basophils # (Manual) PT INR D-Dimer ABG pH POC ABG pCO2 POC ABG pO2 ABG pO2 ABG HCO3 ABG O2 Saturation ABG Base Excess ABG Hemoglobin ABG Oxyhemoglobin ABG Potassium ABG Glucose Oxyhemoglobin Carboxyhemoglobin Sodium Potassium Chloride Carbon Dioxide BUN Creatinine Glucose POC Glucose 122 H 115 H 123 H Calcium Ferritin Total Bilirubin Alkaline Phosphatase Lactate Dehydrogenase Total Creatine Kinase CK-MB (CK-2) Rel Index Troponin T C-Reactive Protein Total Protein Albumin Prealbumin LDL Cholesterol Direct HDL Cholesterol Arterial Blood Glucose Arterial Blood Ionized Calcium Urine WBC (Auto) 04/30/20 05/01/20 05/01/20 00:29 05:39 12:30 WBC RBC Hgb Hct MCV MCH RDW Plt Count Lymph % (Auto) [place] % (Auto) Lymph # (Auto) [place] # (Auto) Seg Neutrophils % Seg Neuts % (Manual) Lymphocytes % (Manual) Monocytes % (Manual) Basophils % (Manual) Seg Neutrophils # Seg Neutrophils # Man Lymphocytes # (Manual) Monocytes # (Manual) Eosinophils # (Manual) Basophils # (Manual) PT INR D-Dimer ABG pH POC ABG pCO2 POC ABG pO2 ABG pO2 ABG HCO3 ABG O2 Saturation ABG Base Excess ABG Hemoglobin ABG Oxyhemoglobin ABG Potassium ABG Glucose Oxyhemoglobin Carboxyhemoglobin Sodium Potassium Chloride Carbon Dioxide BUN Creatinine Glucose POC Glucose 106 H 109 H 108 H Calcium Ferritin Total Bilirubin Alkaline Phosphatase Lactate Dehydrogenase Total Creatine Kinase CK-MB (CK-2) Rel Index Troponin T C-Reactive Protein Total Protein Albumin Prealbumin LDL Cholesterol Direct HDL Cholesterol Arterial Blood Glucose Arterial Blood Ionized Calcium Urine WBC (Auto) 05/01/20 05/03/20 05/03/20 23:35 05:09 11:36 WBC RBC Hgb Hct MCV MCH RDW Plt Count Lymph % (Auto) [place] % (Auto) Lymph # (Auto) [place] # (Auto) Seg Neutrophils % Seg Neuts % (Manual) Lymphocytes % (Manual) Monocytes % (Manual) Basophils % (Manual) Seg Neutrophils # Seg Neutrophils # Man Lymphocytes # (Manual) Monocytes # (Manual) Eosinophils # (Manual) Basophils # (Manual) PT INR D-Dimer ABG pH POC ABG pCO2 POC ABG pO2 ABG pO2 ABG HCO3 ABG O2 Saturation ABG Base Excess ABG Hemoglobin ABG Oxyhemoglobin ABG Potassium ABG Glucose Oxyhemoglobin Carboxyhemoglobin Sodium Potassium Chloride Carbon Dioxide BUN Creatinine Glucose POC Glucose 116 H 117 H 116 H Calcium Ferritin Total Bilirubin Alkaline Phosphatase Lactate Dehydrogenase Total Creatine Kinase CK-MB (CK-2) Rel Index Troponin T C-Reactive Protein Total Protein Albumin Prealbumin LDL Cholesterol Direct HDL Cholesterol Arterial Blood Glucose Arterial Blood Ionized Calcium Urine WBC (Auto) 05/03/20 05/03/20 05/03/20 14:06 14:06 23:39 WBC 12.5 H RBC Hgb 10.0 L Hct 31.2 L MCV 80 L MCH 26 L RDW 17.6 H Plt Count 488 H Lymph % (Auto) [place] % (Auto) Lymph # (Auto) [place] # (Auto) Seg Neutrophils % Seg Neuts % (Manual) Lymphocytes % (Manual) Monocytes % (Manual) Basophils % (Manual) Seg Neutrophils # Seg Neutrophils # Man Lymphocytes # (Manual) Monocytes # (Manual) Eosinophils # (Manual) Basophils # (Manual) PT INR D-Dimer ABG pH POC ABG pCO2 POC ABG pO2 ABG pO2 ABG HCO3 ABG O2 Saturation ABG Base Excess ABG Hemoglobin ABG Oxyhemoglobin ABG Potassium ABG Glucose Oxyhemoglobin Carboxyhemoglobin Sodium Potassium Chloride 95.4 L Carbon Dioxide 40 H BUN Creatinine < 0.2 L Glucose 121 H POC Glucose 107 H Calcium Ferritin Total Bilirubin Alkaline Phosphatase Lactate Dehydrogenase Total Creatine Kinase CK-MB (CK-2) Rel Index Troponin T C-Reactive Protein Total Protein Albumin Prealbumin LDL Cholesterol Direct HDL Cholesterol Arterial Blood Glucose Arterial Blood Ionized Calcium Urine WBC (Auto) 05/04/20 05/04/20 05/04/20 11:31 16:57 23:18 WBC RBC Hgb Hct MCV MCH RDW Plt Count Lymph % (Auto) [place] % (Auto) Lymph # (Auto) [place] # (Auto) Seg Neutrophils % Seg Neuts % (Manual) Lymphocytes % (Manual) Monocytes % (Manual) Basophils % (Manual) Seg Neutrophils # Seg Neutrophils # Man Lymphocytes # (Manual) Monocytes # (Manual) Eosinophils # (Manual) Basophils # (Manual) PT INR D-Dimer ABG pH POC ABG pCO2 POC ABG pO2 ABG pO2 ABG HCO3 ABG O2 Saturation ABG Base Excess ABG Hemoglobin ABG Oxyhemoglobin ABG Potassium ABG Glucose Oxyhemoglobin Carboxyhemoglobin Sodium Potassium Chloride Carbon Dioxide BUN Creatinine Glucose POC Glucose 113 H 126 H 126 H Calcium Ferritin Total Bilirubin Alkaline Phosphatase Lactate Dehydrogenase Total Creatine Kinase CK-MB (CK-2) Rel Index Troponin T C-Reactive Protein Total Protein Albumin Prealbumin LDL Cholesterol Direct HDL Cholesterol Arterial Blood Glucose Arterial Blood Ionized Calcium Urine WBC (Auto) 05/05/20 05/05/20 05/05/20 05:32 11:11 23:57 WBC RBC Hgb Hct MCV MCH RDW Plt Count Lymph % (Auto) [place] % (Auto) Lymph # (Auto) [place] # (Auto) Seg Neutrophils % Seg Neuts % (Manual) Lymphocytes % (Manual) Monocytes % (Manual) Basophils % (Manual) Seg Neutrophils # Seg Neutrophils # Man Lymphocytes # (Manual) Monocytes # (Manual) Eosinophils # (Manual) Basophils # (Manual) PT INR D-Dimer ABG pH POC ABG pCO2 POC ABG pO2 ABG pO2 ABG HCO3 ABG O2 Saturation ABG Base Excess ABG Hemoglobin ABG Oxyhemoglobin ABG Potassium ABG Glucose Oxyhemoglobin Carboxyhemoglobin Sodium Potassium Chloride Carbon Dioxide BUN Creatinine Glucose POC Glucose 109 H 124 H 119 H Calcium Ferritin Total Bilirubin Alkaline Phosphatase Lactate Dehydrogenase Total Creatine Kinase CK-MB (CK-2) Rel Index Troponin T C-Reactive Protein Total Protein Albumin Prealbumin LDL Cholesterol Direct HDL Cholesterol Arterial Blood Glucose Arterial Blood Ionized Calcium Urine WBC (Auto) 05/06/20 05/06/20 05/07/20 05:34 23:08 04:43 WBC RBC Hgb 10.1 L Hct 31.9 L MCV 81 L MCH 25 L RDW 17.6 H Plt Count 506 H Lymph % (Auto) [place] % (Auto) 8.6 H Lymph # (Auto) [place] # (Auto) 0.9 H Seg Neutrophils % Seg Neuts % (Manual) Lymphocytes % (Manual) Monocytes % (Manual) Basophils % (Manual) Seg Neutrophils # Seg Neutrophils # Man Lymphocytes # (Manual) Monocytes # (Manual) Eosinophils # (Manual) Basophils # (Manual) PT INR D-Dimer ABG pH POC ABG pCO2 POC ABG pO2 ABG pO2 ABG HCO3 ABG O2 Saturation ABG Base Excess ABG Hemoglobin ABG Oxyhemoglobin ABG Potassium ABG Glucose Oxyhemoglobin Carboxyhemoglobin Sodium Potassium Chloride Carbon Dioxide BUN Creatinine Glucose POC Glucose 121 H 107 H Calcium Ferritin Total Bilirubin Alkaline Phosphatase Lactate Dehydrogenase Total Creatine Kinase CK-MB (CK-2) Rel Index Troponin T C-Reactive Protein Total Protein Albumin Prealbumin LDL Cholesterol Direct HDL Cholesterol Arterial Blood Glucose Arterial Blood Ionized Calcium Urine WBC (Auto) 05/07/20 05/07/20 05/07/20 06:18 17:13 23:29 WBC RBC Hgb Hct MCV MCH RDW Plt Count Lymph % (Auto) [place] % (Auto) Lymph # (Auto) [place] # (Auto) Seg Neutrophils % Seg Neuts % (Manual) Lymphocytes % (Manual) Monocytes % (Manual) Basophils % (Manual) Seg Neutrophils # Seg Neutrophils # Man Lymphocytes # (Manual) Monocytes # (Manual) Eosinophils # (Manual) Basophils # (Manual) PT INR D-Dimer ABG pH POC ABG pCO2 POC ABG pO2 ABG pO2 ABG HCO3 ABG O2 Saturation ABG Base Excess ABG Hemoglobin ABG Oxyhemoglobin ABG Potassium ABG Glucose Oxyhemoglobin Carboxyhemoglobin Sodium Potassium Chloride Carbon Dioxide BUN Creatinine Glucose POC Glucose 121 H 122 H 114 H Calcium Ferritin Total Bilirubin Alkaline Phosphatase Lactate Dehydrogenase Total Creatine Kinase CK-MB (CK-2) Rel Index Troponin T C-Reactive Protein Total Protein Albumin Prealbumin LDL Cholesterol Direct HDL Cholesterol Arterial Blood Glucose Arterial Blood Ionized Calcium Urine WBC (Auto) 05/08/20 05/08/20 05/08/20 05:20 11:57 23:42 WBC RBC Hgb Hct MCV MCH RDW Plt Count Lymph % (Auto) [place] % (Auto) Lymph # (Auto) [place] # (Auto) Seg Neutrophils % Seg Neuts % (Manual) Lymphocytes % (Manual) Monocytes % (Manual) Basophils % (Manual) Seg Neutrophils # Seg Neutrophils # Man Lymphocytes # (Manual) Monocytes # (Manual) Eosinophils # (Manual) Basophils # (Manual) PT INR D-Dimer ABG pH POC ABG pCO2 POC ABG pO2 ABG pO2 ABG HCO3 ABG O2 Saturation ABG Base Excess ABG Hemoglobin ABG Oxyhemoglobin ABG Potassium ABG Glucose Oxyhemoglobin Carboxyhemoglobin Sodium Potassium Chloride Carbon Dioxide BUN Creatinine Glucose POC Glucose 121 H 113 H 135 H Calcium Ferritin Total Bilirubin Alkaline Phosphatase Lactate Dehydrogenase Total Creatine Kinase CK-MB (CK-2) Rel Index Troponin T C-Reactive Protein Total Protein Albumin Prealbumin LDL Cholesterol Direct HDL Cholesterol Arterial Blood Glucose Arterial Blood Ionized Calcium Urine WBC (Auto) 05/09/20 05/09/20 05/09/20 05:31 11:11 16:06 WBC RBC Hgb Hct MCV MCH RDW Plt Count Lymph % (Auto) [place] % (Auto) Lymph # (Auto) [place] # (Auto) Seg Neutrophils % Seg Neuts % (Manual) Lymphocytes % (Manual) Monocytes % (Manual) Basophils % (Manual) Seg Neutrophils # Seg Neutrophils # Man Lymphocytes # (Manual) Monocytes # (Manual) Eosinophils # (Manual) Basophils # (Manual) PT INR D-Dimer ABG pH POC ABG pCO2 POC ABG pO2 ABG pO2 ABG HCO3 ABG O2 Saturation ABG Base Excess ABG Hemoglobin ABG Oxyhemoglobin ABG Potassium ABG Glucose Oxyhemoglobin Carboxyhemoglobin Sodium 136 L Potassium Chloride 97.0 L Carbon Dioxide 34 H BUN Creatinine < 0.2 L Glucose 107 H POC Glucose 66 L 127 H Calcium Ferritin Total Bilirubin Alkaline Phosphatase Lactate Dehydrogenase Total Creatine Kinase CK-MB (CK-2) Rel Index Troponin T C-Reactive Protein Total Protein Albumin Prealbumin LDL Cholesterol Direct HDL Cholesterol Arterial Blood Glucose Arterial Blood Ionized Calcium Urine WBC (Auto) 05/09/20 05/10/20 05/10/20 23:19 04:59 11:28 WBC RBC Hgb Hct MCV MCH RDW Plt Count Lymph % (Auto) [place] % (Auto) Lymph # (Auto) [place] # (Auto) Seg Neutrophils % Seg Neuts % (Manual) Lymphocytes % (Manual) Monocytes % (Manual) Basophils % (Manual) Seg Neutrophils # Seg Neutrophils # Man Lymphocytes # (Manual) Monocytes # (Manual) Eosinophils # (Manual) Basophils # (Manual) PT INR D-Dimer ABG pH POC ABG pCO2 POC ABG pO2 ABG pO2 ABG HCO3 ABG O2 Saturation ABG Base Excess ABG Hemoglobin ABG Oxyhemoglobin ABG Potassium ABG Glucose Oxyhemoglobin Carboxyhemoglobin Sodium Potassium Chloride Carbon Dioxide BUN Creatinine Glucose POC Glucose 108 H 126 H 124 H Calcium Ferritin Total Bilirubin Alkaline Phosphatase Lactate Dehydrogenase Total Creatine Kinase CK-MB (CK-2) Rel Index Troponin T C-Reactive Protein Total Protein Albumin Prealbumin LDL Cholesterol Direct HDL Cholesterol Arterial Blood Glucose Arterial Blood Ionized Calcium Urine WBC (Auto) 05/10/20 05/11/20 05/11/20 23:56 06:13 11:44 WBC RBC Hgb Hct MCV MCH RDW Plt Count Lymph % (Auto) [place] % (Auto) Lymph # (Auto) [place] # (Auto) Seg Neutrophils % Seg Neuts % (Manual) Lymphocytes % (Manual) Monocytes % (Manual) Basophils % (Manual) Seg Neutrophils # Seg Neutrophils # Man Lymphocytes # (Manual) Monocytes # (Manual) Eosinophils # (Manual) Basophils # (Manual) PT INR D-Dimer ABG pH POC ABG pCO2 POC ABG pO2 ABG pO2 ABG HCO3 ABG O2 Saturation ABG Base Excess ABG Hemoglobin ABG Oxyhemoglobin ABG Potassium ABG Glucose Oxyhemoglobin Carboxyhemoglobin Sodium Potassium Chloride Carbon Dioxide BUN Creatinine Glucose POC Glucose 113 H 124 H 125 H Calcium Ferritin Total Bilirubin Alkaline Phosphatase Lactate Dehydrogenase Total Creatine Kinase CK-MB (CK-2) Rel Index Troponin T C-Reactive Protein Total Protein Albumin Prealbumin LDL Cholesterol Direct HDL Cholesterol Arterial Blood Glucose Arterial Blood Ionized Calcium Urine WBC (Auto) 05/12/20 05/12/20 05/12/20 06:04 12:17 17:23 WBC RBC Hgb Hct MCV MCH RDW Plt Count Lymph % (Auto) [place] % (Auto) Lymph # (Auto) [place] # (Auto) Seg Neutrophils % Seg Neuts % (Manual) Lymphocytes % (Manual) Monocytes % (Manual) Basophils % (Manual) Seg Neutrophils # Seg Neutrophils # Man Lymphocytes # (Manual) Monocytes # (Manual) Eosinophils # (Manual) Basophils # (Manual) PT INR D-Dimer ABG pH POC ABG pCO2 POC ABG pO2 ABG pO2 ABG HCO3 ABG O2 Saturation ABG Base Excess ABG Hemoglobin ABG Oxyhemoglobin ABG Potassium ABG Glucose Oxyhemoglobin Carboxyhemoglobin Sodium Potassium Chloride Carbon Dioxide BUN Creatinine Glucose POC Glucose 135 H 136 H 133 H Calcium Ferritin Total Bilirubin Alkaline Phosphatase Lactate Dehydrogenase Total Creatine Kinase CK-MB (CK-2) Rel Index Troponin T C-Reactive Protein Total Protein Albumin Prealbumin LDL Cholesterol Direct HDL Cholesterol Arterial Blood Glucose Arterial Blood Ionized Calcium Urine WBC (Auto) 05/12/20 05/13/20 05/13/20 23:34 05:36 11:25 WBC RBC Hgb Hct MCV MCH RDW Plt Count Lymph % (Auto) [place] % (Auto) Lymph # (Auto) [place] # (Auto) Seg Neutrophils % Seg Neuts % (Manual) Lymphocytes % (Manual) Monocytes % (Manual) Basophils % (Manual) Seg Neutrophils # Seg Neutrophils # Man Lymphocytes # (Manual) Monocytes # (Manual) Eosinophils # (Manual) Basophils # (Manual) PT INR D-Dimer ABG pH POC ABG pCO2 POC ABG pO2 ABG pO2 ABG HCO3 ABG O2 Saturation ABG Base Excess ABG Hemoglobin ABG Oxyhemoglobin ABG Potassium ABG Glucose Oxyhemoglobin Carboxyhemoglobin Sodium Potassium Chloride Carbon Dioxide BUN Creatinine Glucose POC Glucose 141 H 131 H 148 H Calcium Ferritin Total Bilirubin Alkaline Phosphatase Lactate Dehydrogenase Total Creatine Kinase CK-MB (CK-2) Rel Index Troponin T C-Reactive Protein Total Protein Albumin Prealbumin LDL Cholesterol Direct HDL Cholesterol Arterial Blood Glucose Arterial Blood Ionized Calcium Urine WBC (Auto) 05/13/20 05/14/20 05/14/20 16:40 00:11 05:03 WBC RBC Hgb Hct MCV MCH RDW Plt Count Lymph % (Auto) [place] % (Auto) Lymph # (Auto) [place] # (Auto) Seg Neutrophils % Seg Neuts % (Manual) Lymphocytes % (Manual) Monocytes % (Manual) Basophils % (Manual) Seg Neutrophils # Seg Neutrophils # Man Lymphocytes # (Manual) Monocytes # (Manual) Eosinophils # (Manual) Basophils # (Manual) PT INR D-Dimer ABG pH POC ABG pCO2 POC ABG pO2 ABG pO2 ABG HCO3 ABG O2 Saturation ABG Base Excess ABG Hemoglobin ABG Oxyhemoglobin ABG Potassium ABG Glucose Oxyhemoglobin Carboxyhemoglobin Sodium Potassium Chloride Carbon Dioxide BUN Creatinine Glucose POC Glucose 118 H 128 H 129 H Calcium Ferritin Total Bilirubin Alkaline Phosphatase Lactate Dehydrogenase Total Creatine Kinase CK-MB (CK-2) Rel Index Troponin T C-Reactive Protein Total Protein Albumin Prealbumin LDL Cholesterol Direct HDL Cholesterol Arterial Blood Glucose Arterial Blood Ionized Calcium Urine WBC (Auto) 05/14/20 05/15/20 05/16/20 11:38 23:46 05:20 WBC RBC Hgb Hct MCV MCH RDW Plt Count Lymph % (Auto) [place] % (Auto) Lymph # (Auto) [place] # (Auto) Seg Neutrophils % Seg Neuts % (Manual) Lymphocytes % (Manual) Monocytes % (Manual) Basophils % (Manual) Seg Neutrophils # Seg Neutrophils # Man Lymphocytes # (Manual) Monocytes # (Manual) Eosinophils # (Manual) Basophils # (Manual) PT INR D-Dimer ABG pH POC ABG pCO2 POC ABG pO2 ABG pO2 ABG HCO3 ABG O2 Saturation ABG Base Excess ABG Hemoglobin ABG Oxyhemoglobin ABG Potassium ABG Glucose Oxyhemoglobin Carboxyhemoglobin Sodium Potassium Chloride Carbon Dioxide BUN Creatinine Glucose POC Glucose 134 H 107 H 122 H Calcium Ferritin Total Bilirubin Alkaline Phosphatase Lactate Dehydrogenase Total Creatine Kinase CK-MB (CK-2) Rel Index Troponin T C-Reactive Protein Total Protein Albumin Prealbumin LDL Cholesterol Direct HDL Cholesterol Arterial Blood Glucose Arterial Blood Ionized Calcium Urine WBC (Auto) 05/16/20 05/16/20 05/18/20 11:57 23:51 11:18 WBC RBC Hgb Hct MCV MCH RDW Plt Count Lymph % (Auto) [place] % (Auto) Lymph # (Auto) [place] # (Auto) Seg Neutrophils % Seg Neuts % (Manual) Lymphocytes % (Manual) Monocytes % (Manual) Basophils % (Manual) Seg Neutrophils # Seg Neutrophils # Man Lymphocytes # (Manual) Monocytes # (Manual) Eosinophils # (Manual) Basophils # (Manual) PT INR D-Dimer ABG pH POC ABG pCO2 POC ABG pO2 ABG pO2 ABG HCO3 ABG O2 Saturation ABG Base Excess ABG Hemoglobin ABG Oxyhemoglobin ABG Potassium ABG Glucose Oxyhemoglobin Carboxyhemoglobin Sodium Potassium Chloride Carbon Dioxide BUN Creatinine Glucose POC Glucose 108 H 111 H 115 H Calcium Ferritin Total Bilirubin Alkaline Phosphatase Lactate Dehydrogenase Total Creatine Kinase CK-MB (CK-2) Rel Index Troponin T C-Reactive Protein Total Protein Albumin Prealbumin LDL Cholesterol Direct HDL Cholesterol Arterial Blood Glucose Arterial Blood Ionized Calcium Urine WBC (Auto) Chest x-ray: other (none today) Allied health notes reviewed: nursing
--- NOTE | 2020-05-18 17:30 | Progress Note ---
Assessment and Plan --Acute hypoxic hypercapnic respiratory failure; Intubated on mechanical ventilation. Etiology secondary to sepsis, ALS, multifocal pneumonia (Covid negative). S/p trach placement 03/07/20 --Status post cardiac arrest on 02/25, cardiac hernandez now stable --Dysphagia, status post PEG placement for tube feeding --ALS; Chronic Continue to provide supportive care --Elevated D-dimers; CTA chest, lower extremity venous Doppler both are negative Lovenox for DVT prophylaxis --Bilateral pneumonia; probably community-acquired Completed treatment ID recommendations appreciated --Sepsis secondary to pneumonia s/p empiric antibiotic --Elevated troponin; Serial cardiac enzymes, serial EKGs Echocardiogram, cardiology consult if needed --Hypernatremia Trend sodium Free water via feeding tube --Abdominal distention due to bladder outlet obstruction, resolved CT abdomen showed bladder outlet obstruction, urology consulted s/p drake placement by urology on 03/09 --Hypotension possibly from septic shock and bladder outlet obstruction improved following placing drake --Hypernatremia due to hypovolumia, resolved free water with TF --Constipation; Patient already received Dulcolax suppository and Colace Received milk of magnesia, with relief --DVT prophylaxis; Lovenox Brief history: 59-year-old male patient with significant past medical history of ALS, presented to ED with worsening shortness of breath 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 Patient was on a trilogy machine for breathing 18/11. EMS arrived, patient had O2 sats in the 80s. EMS attempted to place patient on their CPAP machine, however patient did not tolerate. Patient was admitted to the ICU with diagnosis of acute hypoxic respiratory failure and placed on BiPAP. Patient initially tolerated but later deteriorated with respiratory status. CTA chest showed no PE but significant for bilateral pneumonia. Doppler ultrasound also negative for DVT. COVID-19 test ordered and negative. Due to persistent hypoxia and asystolic/V. fib cardiac arrest, patient was intubated on 02/26/2020 at 1500. Patient now on mechanical ventilation in the ICU s/p trach placement and now unable to wean off from the mechanical ventilation. Patient now status post PEG placement for tube feeding. Patient most likely need long-term placement -LTAC versus SNF Daily course: 02/25/2020. CTA of the chest reveals no PE but does illustrate the bilateral pneumonia. Doppler ultrasound also negative for DVT. Blood cultures are pe nding. Await COVID-19 testing. Patient currently requiring BiPAP IPAP 24/EPAP 6 with FiO2 of 25%. Continue O2 and BiPAP as clinically indicated. ID and pulmonary consulted. 02/26/2020. Blood cultures are negative x48 hours and Covid testing negative as well. Continue antibiotics per ID recommendations for community-acquired bilateral pneumonia. Cardiology consultation for elevated troponin. Check echocardiogram. 02/27/2020. Events of yesterday noted with asystole following V. fib arrest. Patient currently on AC mode rate 20, tidal volume 400, FiO2 50% and a PEEP of 6. Follow-up echocardiogram for elevated troponin. Cardiology suspects NSTEMI Type 2 in the setting of acute resp failure. Chest CTA and BLE Dopplers neg. we will discontinue Decadron given the Covid PCR is negative. 02/28/2020. I spoke with the sister Felisa Eli who is the power of employee benefits attorney regarding advanced directives and she instructed me that she would like to continue with aggressive care at this time. I informed her of the guarded prognosis and high mortality/morbidity and she voiced understanding. Patient currently with AC mode ventilation rate 18, tidal volume 400, FiO2 40% and a PEEP of 6. Continue antibiotics for pneumonia. ID previously consulted. Also consult neurology with regards to ALS. 02/29/2020; patient is intubated and on CPAP patient is alert and oriented. Patient has ALS. Dr. Álvarez spoke with his sister and she wants aggressive care. Continue antibiotics for pneumonia. Neurology consulted for ALS. Prognosis poor 03/01/2020; patient is intubated and on CPAP, patient is alert and oriented. I spoke with his 2 sisters about the management plan. 03/02/2020; patient is intubated and on CPAP. Patient was alert and oriented. I spoke with Dr. mohr and he thinks patient may need mechanical ventilation, likely his disease progressed. Dr. Flowers did debridement this morning. 03/03/2020; patient is intubated and on CPAP, patient was on trilogy and BiPAP at home. Patient has ALS. on spontaneous breathing trial. Patient is alert and oriented but quadriplegic. Patient has severe bilateral pneumonia and is on cefepime and Vanco, ID is following. Patient has sacral decubitus ulcer and debridement was done by Dr. Flowers and there is no osteomyelitis. 03/05. Patient still on broad-spectrum antibiotics. Status post sacral decubitus ulcer debridements-no osteomyelitis. Patient is on AC 25/400/30% PEEP 5. No blood gas results today. 03/06. Plan for tracheostomy by surgery. Still remains intubated. Labs reviewed-sodium 150. Started on free water 200 every 8hr. trend sodium. 03/07: s/p trach placement today, patient placed back on mechanical ventilation with trach. Plan to resume tube feeding with NG tube. Continue to monitor vitals, monitor BMP. 03/08: Patient noted to have distended abdomen with low urinary output. Obtain bladder scan rule out urine retention, UA and urine culture, continue to follow clinically. 03/09: Patient noted to have low blood pressure with SBP as low as 70s. Ordered for 500 mils normal saline bolus. CT abdomen showed bladder outlet obstruction, urology consulted. 03/10: placed on drake by urology o/n, improved urine outpt. cont to monitor BMP. resuded TF - cont free water with TF. wean off from vent as tolerated. 03/11: Vitals stable. cont TF, wean off from vent as tolerated. start on 1/2 NS for hypernatremia - follow BMP 03/12: wean off vent as tolerated, plan for speech eval, cont Tf for now, cont iv fluid 03/13: unable to wean off from vent, unable to do speech therapy eval. will need PEG tube, cont supportive care for now, cont NG tube feeding 03/14: consulted GI for PEg placemnet, cont supportive care. remains on vent at night 03/15: Discussed with GI, plan for PEG tube placement possibly tomorrow. Continue supportive care and wean off from vent as tolerated. Hold Lovenox dose tonight. 03/16: family didnot consent for PEG placement yesterday. I spoke with the megan rodriguez today and she is now agreeable for PEG tube. I explained the necessity of the procedure with RN to the patient also and he nodded started on tube feeding, for the procedure. will cont supportive care. planned for PEG tube placement tomorrow. 03/17: s/p PEG placement today, patient tolerated well, cont supportive care 03/18: Started on tube feeding with new PEG tube, continue to wean off vent as tolerated 03/19: cont to monitor with supportive care, wean off vent as tolerated 03/20: Continue to wean off vent as tolerated -but failing weaning trial. Still requiring vent support at night. Currently on PEG tube for tube feed. 03/21. Pt with PSV trials with FiO@ 30%, PEEP 6, PS 10. Currently on PEG tube for tube feed. 03/22/2020. Continue PSV trials per pulmonary. Continue bronchodilators. Patient tolerating tube feedings. Continue Robinul for secretion control. 03/23/2020. Continue PSV trials per pulmonary. Continue bronchodilators. Continue Scopolamine and Robinul for secretion control. Trach care/airway management. Mobility protocols for pressure ulcer prophylaxis. LTAC evaluation per case management 03/24/2020. Continue PSV trials with current settings pressure support 10, PEEP 6 and FiO2 30%. Continue bronchodilators/nebulizer. Continue Scopolamine and Robinul for secretion control. Trach care/airway management. Mobility protocols for pressure ulcer prophylaxis. LTAC evaluation per case management 03/25/2020. Pulmonary to proceed with T-piece trials today. Continue bronchodilators/nebulizer. Continue Scopolamine and Robinul for secretion control. Trach care/airway management. Mobility protocols for pressure ulcer prophylaxis. 03/26/2020. Patient currently with PSV 10/6 at FiO2 of 30%. Continue weaning and T-piece trials per protocol. Continue bronchodilators/nebulizer. Continue Scopolamine and Robinul for secretion control. Trach care/airway management. Mobility protocols for pressure ulcer prophylaxis. Continue tube feeding with aspiration precautions. 03/27/2020. Patient currently with PSV 10/6 at FiO2 of 30%. Continue weaning and T-piece trials per protocol. Continue bronchodilators/nebulizer. Continue Scopolamine and Robinul for secretion control. Trach care/airway management. Mobility protocols for pressure ulcer prophylaxis. Continue tube feeding with aspiration precautions. 03/28. Had temp 100.7F. He has been off antibiotics. Will send blood culture, ua, urine culture and chest xray. Had chest pain overnight and trop was elevated as well. Cardiology to evaluate 03/29. Has back pain due to position. He mentions his chest pain is positional. Has no other complaints. Still on mechanical ventilation 03/30. No chest pain today. Labs reviewed. Discussed chest pain with cardiology and team advised no further work up at this time. Can follow up with cardiology in the office after hospitalization 03/31. Lidocaine patch for lower back pain. 04/01. Discharge planning underway. CM notes reviewed. Discussed with daughter 04/02. CM trying to arrange discharge. Continue PSV trials. Discussed with patients significant other 04/04/2020; CM is working for discharge arrangement. Continue PSV trials. 04/05/2020; patient was seen and evaluated this morning and no change from baseline. Continue with PSV trials. Follow with welt trimming machine operator for discharge planning. 04/06/2020;patient was seen and evaluated this morning and no change from baseline. Continue with PSV trials. Follow with welt trimming machine operator for discharge planning. 04/07/2020; patient was seen and evaluated this morning and no change from baseline. Continue with PSV trials. Follow with welt trimming machine operator for discharge planning. 04/08/2020; patient is vent dependent. Discharge is per welt trimming machine operator. 04/09/2020 patient is vent dependent, possible LTAC placement 04/10/2020; tracheostomy on vent, vent dependent pending LTAC placement 04/11/2020; clinically no change, tracheostomy on ventilatory support, wean as tolerated, awaiting placement 04/12/2020; remains on ventilatory support, unable to wean, patient wants to see a speech therapist for sound box However we cannot try that as long as he is on ventilatory support, once he is weaned off vent We will consult speech therapist, plan of care reviewed with the patient and his nurse 04/14/2020; clinically no change, on ventilatory support, complains of constipation, milk of magnesia Closely monitor the patient and adjust the management as needed 04/15/2020; patient has some oral thrush on the tongue, will give Magic mouthwash/nystatin swish and spit Wean off vent as tolerated 04/16 patient is alert and oriented, unable to comprehend what he is trying to tell but appears to complain of some pain, no acute events overnight, all interdisciplinary notes reviewed. Waiting for LTAC versus correction facility placement 04/17/2020. Continue supportive care with mechanical ventilation. Patient currently on AC mode rate 10, tidal volume 400 FiO2 30% with a PEEP of 6. Discharge planning per case management. 04/18/2020. Patient remains on mechanical ventilation AC mode rate 10, tidal volume 400, FiO2 30% and PEEP of 6. Continue spontaneous breathing trials as tolerated. Previously, patient was considered for discharge home with skilled staff providing care for 12 hours 7 days/week. Continue discussed with case management discharge planning. 04/19/20. Patient remains on mechanical ventilation AC mode rate 10, tidal volume 400, FiO2 30% and PEEP of 6. Continue spontaneous breathing trials as tolerated. 04/20/2020. Patient remains on mechanical ventilation AC mode rate 10, tidal volume 400, FiO2 30% and PEEP of 6. Continue spontaneous breathing trials as tolerated. 04/21/2020. Patient remains on mechanical ventilation AC mode rate 10, tidal volume 400, FiO2 30% and PEEP of 6. Continue tracheostomy care, secretion control and airway management. Continue spontaneous breathing trials as tolerated. 04/22/2020. Patient remains on mechanical ventilation AC mode rate 10, tidal volume 400, FiO2 30% and PEEP of 6. Continue tracheostomy care, secretion control and airway management. Continue spontaneous breathing trials as tolera milana. 04/23/2020. Patient on mechanical ventilation AC mode rate 18, tidal volume 450, FiO2 30% and PEEP of 6. Continue tracheostomy care, secretion control and airway management. Continue spontaneous breathing trials as tolerated. Continue Robinul and scopolamine for secretions. Continue baclofen. 04/24/2020. Patient remains on AC mode ventilation rate 10, tidal volume 400, FiO2 30% and PEEP of 6. Continue tracheostomy care, secretion control and airway management. Continue spontaneous breathing trials as tolerated. Continue Robinul and scopolamine for secretions. Continue baclofen. Continue Xanax for anxiety and Ambien for sleep. Await case management follow-up with regards to discharge planning. 04/25/2020. Patient remains on AC mode ventilation rate 10, tidal volume 400, FiO2 30% and PEEP of 6. Continue tracheostomy care, secretion control and airway management. Continue spontaneous breathing trials as tolerated. Continue Robinul and scopolamine for secretions. Continue baclofen. Continue Xanax for anxiety and Ambien for sleep. Await case management follow-up with regards to discharge planning. 04/26. Patient remains on AC mode ventilation rate 10, tidal volume 400, FiO2 30% and PEEP of 6. Continue tracheostomy care, secretion control and airway management. Continue spontaneous breathing trials as tolerated. Continue Robinul and scopolamine for secretions. Continue baclofen. Continue Xanax for anxiety and Ambien for sleep. Await case management follow-up with regards to discharge planning. 04/27. Patient remains on AC mode ventilation rate 10, tidal volume 400, FiO2 30% and PEEP of 6. Continue tracheostomy care, secretion control and airway management. Continue spontaneous breathing trials as tolerated. Continue Robinul and scopolamine for secretions. Continue baclofen. Continue Xanax for anxiety and Ambien for sleep. Await case management follow-up with regards to discharge planning. 04/28/20 no acute events overnight, remains vent dependent, cardiology and pulmonary notes reviewed 04/29 remains intubated via tracheostomy, no acute events 04/30 no acute events overnight, cardiology note reviewed, remains vent dependent, discharge planning per case management 05/01 stable. cardiology and pulmonary notes reviewed. D/C acu-checks 05/02 - todate: Clinically stable, CM working on placement. Continue supportive care. Subjective Date of service: 05/18/20 Principal diagnosis: Ac on Ch Hypercapnic & hypoxemic Resp Failure; Severe Sepsis; Jamar PNA; ALS Interval history: Patient seen and examined Remains on trach tube Discussed with RN at the bedside Vitals reviewed -BP stable Tolerating tube feeding with PEG tube Objective - Exam Narrative Exam: GENERAL: Awake. Intubated with trach tube HEAD: No signs of head trauma. EYES: Pupils are equal. Extraocular motions intact. EARS: Hearing grossly intact. MOUTH: Oropharynx is normal. NECK: No adenopathy, no JVD. CHEST: Coarse breath sounds bilaterally CARDIAC: Regular rate and rhythm. S1 and S2, without murmurs, gallops, or rubs. VASCULAR: No Edema. Peripheral pulses normal and equal in all extremities. ABDOMEN: Soft, non tender and nondistended. Bowel Sounds normal. PEG in place NEUROLOGIC EXAM: Awake, paraplegic SKIN: No obvious lesions - Constitutional Vitals: Vital Signs - 12hr 05/18/20 05/18/20 05/18/20 06:00 07:00 08:00 Temperature 98.0 F Pulse Rate 93 H 101 H 111 H Respiratory 20 22 28 H Rate Blood Pressure 150/98 129/86 145/99 O2 Sat by Pulse 94 94 96 Oximetry O2 Sat by Pulse Oximetry [ Assessment] 05/18/20 05/18/20 05/18/20 09:00 10:01 11:01 Temperature Pulse Rate 101 H 112 H 106 H Respiratory 27 H 26 H 23 Rate Blood Pressure 153/97 150/90 110/73 O2 Sat by Pulse 94 95 94 Oximetry O2 Sat by Pulse 96 Oximetry [ Assessment] 05/18/20 05/18/20 05/18/20 11:07 12:00 15:26 Temperature 98.2 F Pulse Rate 99 H 103 H 106 H Respiratory 25 H 26 H 26 H Rate Blood Pressure 110/79 93/61 105/59 O2 Sat by Pulse 96 98 97 Oximetry O2 Sat by Pulse 97 Oximetry [ Assessment] 05/18/20 16:00 Temperature 98.4 F Pulse Rate Respiratory Rate Blood Pressure O2 Sat by Pulse Oximetry O2 Sat by Pulse Oximetry [ Assessment] - Labs CBC & Chem 7: 05/07/20 04:43 05/09/20 16:06 Labs: Abnormal lab results 05/18/20 05/18/20 Range/Units 11:18 16:18 POC Glucose 115 H 110 H (70-105) mg/dL HEART Score - HEART Score Troponin: Troponin T 0.181 ng/mL (0.00-0.029) H* 04/24/20 05:28
[2020-05-18] MEDS: ENOXAPARIN 40 MG/0.4 ML INJ SUB-Q SCH (22:46)
[2020-05-18] MEDS: SENNOSIDES 8.6 MG TAB PO SCH (22:48)
[2020-05-18] MEDS: ZOLPIDEM 5 MG TAB PO PRN (22:49)
[2020-05-19] MEDS: D5W/0.9% NACL 1,000 ML IV SCH ×2 (00:37→20:51)
[2020-05-19] MEDS: MORPHINE 2 MG/1 ML INJ IV PRN ×3 (06:19→18:00)
[2020-05-19] MEDS: LANSOPRAZOLE 30 MG SOLUTAB FEEDTUBE SCH (08:59)
[2020-05-19] MEDS: GLYCOPYRROLATE 1 MG TAB PO SCH ×3 (08:59→20:50)
[2020-05-19] MEDS: ASPIRIN EC 81 MG TAB PO SCH (08:59)
[2020-05-19] MEDS: METOPROLOL TARTRATE 25 MG TAB PO SCH ×2 (08:59→22:22)
[2020-05-19] MEDS: ALPRAZolam 0.5 MG TAB PO PRN ×2 (08:59→22:24)
[2020-05-19] MEDS: DOCUSATE SODIUM 100 MG/10 ML ORAL LIQD FEEDTUBE SCH ×2 (08:59→22:21)
[2020-05-19] MEDS: PREGABALIN 75 MG CAP PO SCH ×2 (09:00→22:22)
[2020-05-19] MEDS: LIDOCAINE 5% 1 EACH PATCH TD SCH (09:00)
[2020-05-19] MEDS: MAGIC MOUTHWASH 30ML PO SCH ×3 (09:00→20:52)
[2020-05-19] MEDS: BACLOFEN 10 MG TAB PO SCH ×2 (09:00→22:21)
[2020-05-19] MEDS: TAMSULOSIN 0.4 MG CAP PO SCH (09:00)
--- NOTE | 2020-05-19 15:33 | Progress Note ---
Assessment and Plan --Acute hypoxic hypercapnic respiratory failure; Intubated on mechanical ventilation. Etiology secondary to sepsis, ALS, multifocal pneumonia (Covid negative). S/p trach placement 03/07/20 --Status post cardiac arrest on 02/25, cardiac hernandez now stable --Dysphagia, status post PEG placement for tube feeding --ALS; Chronic Continue to provide supportive care --Elevated D-dimers; CTA chest, lower extremity venous Doppler both are negative Lovenox for DVT prophylaxis --Bilateral pneumonia; probably community-acquired Completed treatment ID recommendations appreciated --Sepsis secondary to pneumonia s/p empiric antibiotic --Elevated troponin; Serial cardiac enzymes, serial EKGs Echocardiogram, cardiology consult if needed --Hypernatremia Trend sodium Free water via feeding tube --Abdominal distention due to bladder outlet obstruction, resolved CT abdomen showed bladder outlet obstruction, urology consulted s/p drake placement by urology on 03/09 --Hypotension possibly from septic shock and bladder outlet obstruction improved following placing drake --Hypernatremia due to hypovolumia, resolved free water with TF --Constipation; Patient already received Dulcolax suppository and Colace Received milk of magnesia, with relief --DVT prophylaxis; Lovenox Brief history: 59-year-old male patient with significant past medical history of ALS, presented to ED with worsening shortness of breath since the morning SKEIN BLEACHER. Patient was on a trilogy machine for breathing 18/11. EMS arrived, patient had O2 sats in the 80s. EMS attempted to place patient on their CPAP machine, however patient did not tolerate. Patient was admitted to the ICU with diagnosis of acute hypoxic respiratory failure and placed on BiPAP. Patient initially tolerated but later deteriorated with respiratory status. CTA chest showed no PE but significant for bilateral pneumonia. Doppler ultrasound also negative for DVT. COVID-19 test ordered and negative. Due to persistent hypoxia and asystolic/V. fib cardiac arrest, patient was intubated on 02/26/2020 at 1500. Patient now on mechanical ventilation in the ICU s/p trach placement and now unable to wean off from the mechanical ventilation. Patient now status post PEG placement for tube feeding. Patient most likely need long-term placement -LTAC versus SNF Daily course: 02/25/2020. CTA of the chest reveals no PE but does illustrate the bilateral pneumonia. Doppler ultrasound also negative for DVT. Blood cultures are pe nding. Await COVID-19 testing. Patient currently requiring BiPAP IPAP 24/EPAP 6 with FiO2 of 25%. Continue O2 and BiPAP as clinically indicated. ID and pulmonary consulted. 02/26/2020. Blood cultures are negative x48 hours and Covid testing negative as well. Continue antibiotics per ID recommendations for community-acquired bilateral pneumonia. Cardiology consultation for elevated troponin. Check echocardiogram. 02/27/2020. Events of yesterday noted with asystole following V. fib arrest. Patient currently on AC mode rate 20, tidal volume 400, FiO2 50% and a PEEP of 6. Follow-up echocardiogram for elevated troponin. Cardiology suspects NSTEMI Type 2 in the setting of acute resp failure. Chest CTA and BLE Dopplers neg. we will discontinue Decadron given the Covid PCR is negative. 02/28/2020. I spoke with the sister Felisa Eli who is the power of research attorney regarding advanced directives and she instructed me that she would like to continue with aggressive care at this time. I informed her of the guarded prognosis and high mortality/morbidity and she voiced understanding. Patient currently with AC mode ventilation rate 18, tidal volume 400, FiO2 40% and a PEEP of 6. Continue antibiotics for pneumonia. ID previously consulted. Also consult neurology with regards to ALS. 02/29/2020; patient is intubated and on CPAP patient is alert and oriented. Patient has ALS. Dr. Álvarez spoke with his sister and she wants aggressive care. Continue antibiotics for pneumonia. Neurology consulted for ALS. Prognosis poor 03/01/2020; patient is intubated and on CPAP, patient is alert and oriented. I spoke with his 2 sisters about the management plan. 03/02/2020; patient is intubated and on CPAP. Patient was alert and oriented. I spoke with Dr. mohr and he thinks patient may need mechanical ventilation, likely his disease progressed. Dr. Flowers did debridement this morning. 03/03/2020; patient is intubated and on CPAP, patient was on trilogy and BiPAP at home. Patient has ALS. on spontaneous breathing trial. Patient is alert and oriented but quadriplegic. Patient has severe bilateral pneumonia and is on cefepime and Vanco, ID is following. Patient has sacral decubitus ulcer and debridement was done by Dr. Flowers and there is no osteomyelitis. 03/05. Patient still on broad-spectrum antibiotics. Status post sacral decubitus ulcer debridements-no osteomyelitis. Patient is on AC 25/400/30% PEEP 5. No blood gas results today. 03/06. Plan for tracheostomy by surgery. Still remains intubated. Labs reviewed-sodium 150. Started on free water 200 every 8hr. trend sodium. 03/07: s/p trach placement today, patient placed back on mechanical ventilation with trach. Plan to resume tube feeding with NG tube. Continue to monitor vitals, monitor BMP. 03/08: Patient noted to have distended abdomen with low urinary output. Obtain bladder scan rule out urine retention, UA and urine culture, continue to follow clinically. 03/09: Patient noted to have low blood pressure with SBP as low as 70s. Ordered for 500 mils normal saline bolus. CT abdomen showed bladder outlet obstruction, urology consulted. 03/10: placed on drake by urology o/n, improved urine outpt. cont to monitor BMP. resuded TF - cont free water with TF. wean off from vent as tolerated. 03/11: Vitals stable. cont TF, wean off from vent as tolerated. start on 1/2 NS for hypernatremia - follow BMP 03/12: wean off vent as tolerated, plan for speech eval, cont Tf for now, cont iv fluid 03/13: unable to wean off from vent, unable to do speech therapy eval. will need PEG tube, cont supportive care for now, cont NG tube feeding 03/14: consulted GI for PEg placemnet, cont supportive care. remains on vent at night 03/15: Discussed with GI, plan for PEG tube placement possibly tomorrow. Continue supportive care and wean off from vent as tolerated. Hold Lovenox dose tonight. 03/16: family didnot consent for PEG placement yesterday. I spoke with the megan rodriguez today and she is now agreeable for PEG tube. I explained the necessity of the procedure with RN to the patient also and he nodded started on tube feeding, for the procedure. will cont supportive care. planned for PEG tube placement tomorrow. 03/17: s/p PEG placement today, patient tolerated well, cont supportive care 03/18: Started on tube feeding with new PEG tube, continue to wean off vent as tolerated 03/19: cont to monitor with supportive care, wean off vent as tolerated 03/20: Continue to wean off vent as tolerated -but failing weaning trial. Still requiring vent support at night. Currently on PEG tube for tube feed. 03/21. Pt with PSV trials with FiO@ 30%, PEEP 6, PS 10. Currently on PEG tube for tube feed. 03/22/2020. Continue PSV trials per pulmonary. Continue bronchodilators. Patient tolerating tube feedings. Continue Robinul for secretion control. 03/23/2020. Continue PSV trials per pulmonary. Continue bronchodilators. Continue Scopolamine and Robinul for secretion control. Trach care/airway management. Mobility protocols for pressure ulcer prophylaxis. LTAC evaluation per case management 03/24/2020. Continue PSV trials with current settings pressure support 10, PEEP 6 and FiO2 30%. Continue bronchodilators/nebulizer. Continue Scopolamine and Robinul for secretion control. Trach care/airway management. Mobility protocols for pressure ulcer prophylaxis. LTAC evaluation per case management 03/25/2020. Pulmonary to proceed with T-piece trials today. Continue bronchodilators/nebulizer. Continue Scopolamine and Robinul for secretion control. Trach care/airway management. Mobility protocols for pressure ulcer prophylaxis. 03/26/2020. Patient currently with PSV 10/6 at FiO2 of 30%. Continue weaning and T-piece trials per protocol. Continue bronchodilators/nebulizer. Continue Scopolamine and Robinul for secretion control. Trach care/airway management. Mobility protocols for pressure ulcer prophylaxis. Continue tube feeding with aspiration precautions. 03/27/2020. Patient currently with PSV 10/6 at FiO2 of 30%. Continue weaning and T-piece trials per protocol. Continue bronchodilators/nebulizer. Continue Scopolamine and Robinul for secretion control. Trach care/airway management. Mobility protocols for pressure ulcer prophylaxis. Continue tube feeding with aspiration precautions. 03/28. Had temp 100.7F. He has been off antibiotics. Will send blood culture, ua, urine culture and chest xray. Had chest pain overnight and trop was elevated as well. Cardiology to evaluate 03/29. Has back pain due to position. He mentions his chest pain is positional. Has no other complaints. Still on mechanical ventilation 03/30. No chest pain today. Labs reviewed. Discussed chest pain with cardiology and team advised no further work up at this time. Can follow up with cardiology in the office after hospitalization 03/31. Lidocaine patch for lower back pain. 04/01. Discharge planning underway. CM notes reviewed. Discussed with daughter 04/02. CM trying to arrange discharge. Continue PSV trials. Discussed with patients significant other 04/04/2020; CM is working for discharge arrangement. Continue PSV trials. 04/05/2020; patient was seen and evaluated this morning and no change from baseline. Continue with PSV trials. Follow with audiovisual aids technician for discharge planning. 04/06/2020;patient was seen and evaluated this morning and no change from baseline. Continue with PSV trials. Follow with audiovisual aids technician for discharge planning. 04/07/2020; patient was seen and evaluated this morning and no change from baseline. Continue with PSV trials. Follow with audiovisual aids technician for discharge planning. 04/08/2020; patient is vent dependent. Discharge is per audiovisual aids technician. 04/09/2020 patient is vent dependent, possible LTAC placement 04/10/2020; tracheostomy on vent, vent dependent pending LTAC placement 04/11/2020; clinically no change, tracheostomy on ventilatory support, wean as tolerated, awaiting placement 04/12/2020; remains on ventilatory support, unable to wean, patient wants to see a speech therapist for sound box However we cannot try that as long as he is on ventilatory support, once he is weaned off vent We will consult speech therapist, plan of care reviewed with the patient and his nurse 04/14/2020; clinically no change, on ventilatory support, complains of constipation, milk of magnesia Closely monitor the patient and adjust the management as needed 04/15/2020; patient has some oral thrush on the tongue, will give Magic mouthwash/nystatin swish and spit Wean off vent as tolerated 04/16 patient is alert and oriented, unable to comprehend what he is trying to tell but appears to complain of some pain, no acute events overnight, all interdisciplinary notes reviewed. Waiting for LTAC versus [facility] facility placement 04/17/2020. Continue supportive care with mechanical ventilation. Patient currently on AC mode rate 10, tidal volume 400 FiO2 30% with a PEEP of 6. Discharge planning per case management. 04/18/2020. Patient remains on mechanical ventilation AC mode rate 10, tidal volume 400, FiO2 30% and PEEP of 6. Continue spontaneous breathing trials as tolerated. Previously, patient was considered for discharge home with skilled staff providing care for 12 hours 7 days/week. Continue discussed with case management discharge planning. 04/19/20. Patient remains on mechanical ventilation AC mode rate 10, tidal volume 400, FiO2 30% and PEEP of 6. Continue spontaneous breathing trials as tolerated. 04/20/2020. Patient remains on mechanical ventilation AC mode rate 10, tidal volume 400, FiO2 30% and PEEP of 6. Continue spontaneous breathing trials as tolerated. 04/21/2020. Patient remains on mechanical ventilation AC mode rate 10, tidal volume 400, FiO2 30% and PEEP of 6. Continue tracheostomy care, secretion control and airway management. Continue spontaneous breathing trials as tolerated. 04/22/2020. Patient remains on mechanical ventilation AC mode rate 10, tidal volume 400, FiO2 30% and PEEP of 6. Continue tracheostomy care, secretion control and airway management. Continue spontaneous breathing trials as tolera milana. 04/23/2020. Patient on mechanical ventilation AC mode rate 18, tidal volume 450, FiO2 30% and PEEP of 6. Continue tracheostomy care, secretion control and airway management. Continue spontaneous breathing trials as tolerated. Continue Robinul and scopolamine for secretions. Continue baclofen. 04/24/2020. Patient remains on AC mode ventilation rate 10, tidal volume 400, FiO2 30% and PEEP of 6. Continue tracheostomy care, secretion control and airway management. Continue spontaneous breathing trials as tolerated. Continue Robinul and scopolamine for secretions. Continue baclofen. Continue Xanax for anxiety and Ambien for sleep. Await case management follow-up with regards to discharge planning. 04/25/2020. Patient remains on AC mode ventilation rate 10, tidal volume 400, FiO2 30% and PEEP of 6. Continue tracheostomy care, secretion control and airway management. Continue spontaneous breathing trials as tolerated. Continue Robinul and scopolamine for secretions. Continue baclofen. Continue Xanax for anxiety and Ambien for sleep. Await case management follow-up with regards to discharge planning. 04/26. Patient remains on AC mode ventilation rate 10, tidal volume 400, FiO2 30% and PEEP of 6. Continue tracheostomy care, secretion control and airway management. Continue spontaneous breathing trials as tolerated. Continue Robinul and scopolamine for secretions. Continue baclofen. Continue Xanax for anxiety and Ambien for sleep. Await case management follow-up with regards to discharge planning. 04/27. Patient remains on AC mode ventilation rate 10, tidal volume 400, FiO2 30% and PEEP of 6. Continue tracheostomy care, secretion control and airway management. Continue spontaneous breathing trials as tolerated. Continue Robinul and scopolamine for secretions. Continue baclofen. Continue Xanax for anxiety and Ambien for sleep. Await case management follow-up with regards to discharge planning. 04/28/20 no acute events overnight, remains vent dependent, cardiology and pulmonary notes reviewed 04/29 remains intubated via tracheostomy, no acute events 04/30 no acute events overnight, cardiology note reviewed, remains vent dependent, discharge planning per case management 05/01 stable. cardiology and pulmonary notes reviewed. D/C acu-checks 05/02 - todate: Clinically stable, CM working on placement. Continue supportive care. Subjective Date of service: 05/19/20 Principal diagnosis: Ac on Ch Hypercapnic & hypoxemic Resp Failure; Severe Sepsis; Jamar PNA; ALS Interval history: Patient seen and examined Remains on trach tube Discussed with RN at the bedside Vitals reviewed -BP stable Tolerating tube feeding with PEG tube Objective - Exam Narrative Exam: GENERAL: Awake. Intubated with trach tube HEAD: No signs of head trauma. EYES: Pupils are equal. Extraocular motions intact. EARS: Hearing grossly intact. MOUTH: Oropharynx is normal. NECK: No adenopathy, no JVD. CHEST: Coarse breath sounds bilaterally CARDIAC: Regular rate and rhythm. S1 and S2, without murmurs, gallops, or rubs. VASCULAR: No Edema. Peripheral pulses normal and equal in all extremities. ABDOMEN: Soft, non tender and nondistended. Bowel Sounds normal. PEG in place NEUROLOGIC EXAM: Awake, paraplegic SKIN: No obvious lesions - Constitutional Vitals: Vital Signs - 12hr 05/19/20 05/19/20 05/19/20 04:00 05:00 05:42 Temperature 97.8 F Pulse Rate 109 H 103 H 113 H Pulse Rate [ 113 H From Monitor] Respiratory 23 25 H Rate Blood Pressure 101/83 115/85 115/85 O2 Sat by Pulse 94 95 98 Oximetry O2 Sat by Pulse Oximetry [ Assessment] 05/19/20 05/19/20 05/19/20 06:00 06:19 07:00 Temperature Pulse Rate 116 H 104 H Pulse Rate [ From Monitor] Respiratory 13 23 21 Rate Blood Pressure 106/85 153/100 O2 Sat by Pulse 96 97 Oximetry O2 Sat by Pulse Oximetry [ Assessment] 05/19/20 05/19/20 05/19/20 08:00 08:59 09:00 Temperature 98.5 F Pulse Rate 101 H 107 H 103 H Pulse Rate [ 101 H From Monitor] Respiratory 23 25 H Rate Blood Pressure 137/87 137/87 138/93 O2 Sat by Pulse 100 97 Oximetry O2 Sat by Pulse 98 Oximetry [ Assessment] 05/19/20 05/19/20 05/19/20 10:00 11:00 11:46 Temperature Pulse Rate 101 H 101 H 106 H Pulse Rate [ From Monitor] Respiratory 19 25 H 19 Rate Blood Pressure 140/101 150/100 150/100 O2 Sat by Pulse 96 95 99 Oximetry O2 Sat by Pulse Oximetry [ Assessment] 05/19/20 05/19/20 05/19/20 12:00 13:00 14:00 Temperature 98.0 F Pulse Rate 103 H 107 H 92 H Pulse Rate [ From Monitor] Respiratory 22 20 20 Rate Blood Pressure 128/95 144/83 134/95 O2 Sat by Pulse 99 98 99 Oximetry O2 Sat by Pulse Oximetry [ Assessment] - Labs CBC & Chem 7: 05/07/20 04:43 05/09/20 16:06 Labs: Abnormal lab results 05/18/20 05/18/20 05/19/20 Range/Units 16:18 23:38 05:07 POC Glucose 110 H 128 H 121 H (70-105) mg/dL 05/19/20 Range/Units 11:36 POC Glucose 120 H (70-105) mg/dL HEART Score - HEART Score Troponin: Troponin T 0.181 ng/mL (0.00-0.029) H* 04/24/20 05:28
--- NOTE | 2020-05-19 15:55 | Progress Note ---
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 Respiratory Failure Severe Sepsis with Shock Bilateral Pneumonia (Possible aspiration) History of ALS on Trilogy Oropharyngeal Dysphagia PUI-COVID Acute toxic metabolic encephalopathy Elevated D-dimer Elevated troponin possibly type 2 ischemia - will repeat CXR if desaturates - discharge planning still ongoing for home ventilator - continue daily SBT's as tolerated; t-piece trial attempts as tolerated (PSV if fails) - remains ventilator dependent; refusing SBT's at time and not tolerating t- piece when tried - continue care as below; - continue home meds re: chronic pain (Baclofen, Lyrica) - repeat CXR prn +/- bronchoscopy for mucus plugging / large volume atelectasis - continue psychoactive meds for anxiolysis - continue Robinul & scopolamine for secretion control - prn electrolytes and optimize K+ & Mg 2+ for best respiratory muscle function - wound care per RN/WCN - wean supplemental oxygen for target O2 sat's > 90% acutely - bronchodilators with pulmonary hygiene per RT - VAP bundle addressed - continue lung protective strategies - continue bronchodilators with pulmonary hygiene per RT - wean per pulmonary driven protocols otherwise - sedation prn for target RASS 0 to -1 - s/p empiric antiinfectives per ID rec's (Rocephin and Zithromax) - s/p COVID-19 isolation (Airborne & Contact) - s/p Dexamethasone - enteral nutrition at goal rate as tolerated - accuchecks with glycemic control per SSI (While critically ill target blood glucose of 140-180 mg/dL; avoid hypoglycemia) - avoid nephrotoxins, renally dose all medications - avoid benzodiazepine's, reduce the possibility of delirium - prn analgesia per CPOT score - Maintenance of sleep-wake cycle, avoid delirium - aspiration precautions - G.I. & VTE prophylaxis - PT/OT/ROM exercises - mobility protocols for pressure ulcer prophylaxis - Monitor hemodynamics closely - continue other care per attending / other consultants - discharge planning ongoing concurrently .... Re-evaluate in am & prn CONDITION: CRITICAL PROGNOSIS: GUARDED CODE STATUS: FULL CODE The high probability of a clinically significant, sudden or life-threatening deterioration of the [respiratory, cardiovascular & neurologic] system(s) required my full and direct attention, intervention and personal management. The aggregate critical care time was [33] minutes without overlap. Time includes spent on; [x] Data Review and interpretation [x] Patient assessment and monitoring of vital signs [x] Documentation [x] Medication orders and management Subjective Date of service: 05/19/20 Principal diagnosis: Ac on Ch Hypercapnic & hypoxemic Resp Failure; Severe Sepsis; Jamar PNA; ALS Interval history: Patient is seen today for: Acute on Chronic Hypercapnic & hypoxemic Respiratory Failure; Severe Sepsis with Shock; Bilateral Pneumonia (Possible aspiration); History of ALS on Trilogy; PUI-COVID; Acute toxic metabolic encephalopathy Seen and examined at bedside; 24hour events reviewed; nursing and respiratory care staff consulted; no adverse overnight events reported to me; resting in bed; remains on MVS; status quo is same today except appears more uncomfortable Objective Vital Signs - 12hr 05/19/20 05/19/20 05/19/20 04:00 05:00 05:42 Temperature 97.8 F Pulse Rate 109 H 103 H 113 H Pulse Rate [ 113 H From Monitor] Respiratory 23 25 H Rate Blood Pressure 101/83 115/85 115/85 O2 Sat by Pulse 94 95 98 Oximetry O2 Sat by Pulse Oximetry [ Assessment] 05/19/20 05/19/20 05/19/20 06:00 06:19 07:00 Temperature Pulse Rate 116 H 104 H Pulse Rate [ From Monitor] Respiratory 13 23 21 Rate Blood Pressure 106/85 153/100 O2 Sat by Pulse 96 97 Oximetry O2 Sat by Pulse Oximetry [ Assessment] 05/19/20 05/19/20 05/19/20 08:00 08:59 09:00 Temperature 98.5 F Pulse Rate 101 H 107 H 103 H Pulse Rate [ 101 H From Monitor] Respiratory 23 25 H Rate Blood Pressure 137/87 137/87 138/93 O2 Sat by Pulse 100 97 Oximetry O2 Sat by Pulse 98 Oximetry [ Assessment] 05/19/20 05/19/20 05/19/20 10:00 11:00 11:46 Temperature Pulse Rate 101 H 101 H 106 H Pulse Rate [ From Monitor] Respiratory 19 25 H 19 Rate Blood Pressure 140/101 150/100 150/100 O2 Sat by Pulse 96 95 99 Oximetry O2 Sat by Pulse Oximetry [ Assessment] 05/19/20 05/19/20 05/19/20 12:00 13:00 14:00 Temperature 98.0 F Pulse Rate 103 H 107 H 92 H Pulse Rate [ From Monitor] Respiratory 22 20 20 Rate Blood Pressure 128/95 144/83 134/95 O2 Sat by Pulse 99 98 99 Oximetry O2 Sat by Pulse Oximetry [ Assessment] 05/19/20 15:45 Temperature Pulse Rate 107 H Pulse Rate [ From Monitor] Respiratory 21 Rate Blood Pressure 135/93 O2 Sat by Pulse 98 Oximetry O2 Sat by Pulse 98 Oximetry [ Assessment] Constitutional: appears uncomfortable, other (thin middle aged male with mildly increased respiratory effort at rest on MVS) Eyes: non-icteric ENT: oropharynx moist, other (S/P Tracheostomy) Neck: supple, no lymphadenopathy, no JVD Effort: mildly labored Ascultation: Bilateral: clear, diminished breath sounds (bases) Percussion: Bilateral: not dull Cardiovascular: regular rate and rhythm, other (S1,S2, no murmurs) Gastrointestinal: normoactive bowel sounds, soft, non-tender, non-distended Integumentary: normal, decubitus ulcer (sacral / gluteal) Extremities: no cyanosis, no edema, pulses normal, other (atrophic looking limbs) Neurologic: pupils equal and round, other (motor strength in extremities 1-2/5, awake, alert, mouths words to make needs known) Psychiatric: depressed CBC and BMP: 05/21/20 04:18 05/21/20 04:18 ABG, PT/INR, D-dimer: ABG ABG pH 7.371 (7.320-7.450) 03/08/20 12:34 POC ABG pCO2 63.1 mmHg (32.0-48.0) H 03/08/20 12:34 ABG pCO2 60.1 mm Hg 03/06/20 04:34 POC ABG pO2 90.5 mmHg (83-108) 03/08/20 12:34 ABG pO2 88.6 mm Hg (80.0-90.0) 03/06/20 04:34 POC ABG HCO3 35.7 03/08/20 12:34 ABG O2 Saturation 97.0 % (95.0-99.0) 03/06/20 04:34 PT/INR, D-dimer PT 15.6 Sec. (12.2-14.9) H 02/24/20 09:19 INR 1.21 (0.87-1.13) H 02/24/20 09:19 D-Dimer 1311.96 ng/mlDDU (0-234) H 02/24/20 09:19 Abnormal lab findings: Abnormal Labs 02/24/20 02/24/20 02/24/20 09:19 09:19 09:19 WBC 20.2 H RBC 5.05 H Hgb Hct MCV MCH RDW 15.3 H Plt Count Lymph % (Auto) Coffee % (Auto) Lymph # (Auto) Coffee # (Auto) Seg Neutrophils % Seg Neuts % (Manual) 86.0 H Lymphocytes % (Manual) 1.0 L Monocytes % (Manual) Basophils % (Manual) Seg Neutrophils # Seg Neutrophils # Man 17.4 H Lymphocytes # (Manual) 0.2 L Monocytes # (Manual) Eosinophils # (Manual) Basophils # (Manual) PT 15.6 H INR 1.21 H D-Dimer 1311.96 H ABG pH POC ABG pCO2 POC ABG pO2 ABG pO2 ABG HCO3 ABG O2 Saturation ABG Base Excess ABG Hemoglobin ABG Oxyhemoglobin ABG Potassium ABG Glucose Oxyhemoglobin Carboxyhemoglobin Sodium 135 L Potassium 3.2 L Chloride 92.2 L Carbon Dioxide BUN 6 L Creatinine < 0.2 L Glucose 124 H POC Glucose Calcium Ferritin Total Bilirubin 2.30 H Alkaline Phosphatase 132 H Lactate Dehydrogenase Total Creatine Kinase CK-MB (CK-2) Rel Index Troponin T 0.080 H C-Reactive Protein Total Protein Albumin 3.6 L Prealbumin LDL Cholesterol Direct 41 L HDL Cholesterol Arterial Blood Glucose Arterial Blood Ionized Calcium Urine WBC (Auto) 02/24/20 02/24/20 02/24/20 09:19 09:58 10:01 WBC RBC Hgb Hct MCV MCH RDW Plt Count Lymph % (Auto) Coffee % (Auto) Lymph # (Auto) Coffee # (Auto) Seg Neutrophils % Seg Neuts % (Manual) Lymphocytes % (Manual) Monocytes % (Manual) Basophils % (Manual) Seg Neutrophils # Seg Neutrophils # Man Lymphocytes # (Manual) Monocytes # (Manual) Eosinophils # (Manual) Basophils # (Manual) PT INR D-Dimer ABG pH 7.176 L* POC ABG pCO2 POC ABG pO2 ABG pO2 91.2 H ABG HCO3 ABG O2 Saturation ABG Base Excess -4.6 L ABG Hemoglobin ABG Oxyhemoglobin ABG Potassium ABG Glucose Oxyhemoglobin 92.6 L Carboxyhemoglobin Sodium Potassium Chloride Carbon Dioxide BUN Creatinine Glucose POC Glucose Calcium Ferritin 1715.0 H Total Bilirubin Alkaline Phosphatase Lactate Dehydrogenase 303 H Total Creatine Kinase CK-MB (CK-2) Rel Index Troponin T C-Reactive Protein 26.10 H Total Protein Albumin Prealbumin LDL Cholesterol Direct HDL Cholesterol Arterial Blood Glucose Arterial Blood Ionized Calcium Urine WBC (Auto) 02/24/20 02/24/20 02/24/20 11:52 13:45 19:35 WBC RBC Hgb Hct MCV MCH RDW Plt Count Lymph % (Auto) Coffee % (Auto) Lymph # (Auto) Coffee # (Auto) Seg Neutrophils % Seg Neuts % (Manual) Lymphocytes % (Manual) Monocytes % (Manual) Basophils % (Manual) Seg Neutrophils # Seg Neutrophils # Man Lymphocytes # (Manual) Monocytes # (Manual) Eosinophils # (Manual) Basophils # (Manual) PT INR D-Dimer ABG pH 7.051 L* 7.300 L POC ABG pCO2 POC ABG pO2 ABG pO2 94.7 H 75.1 L ABG HCO3 18.0 L ABG O2 Saturation 93.5 L ABG Base Excess -6.8 L -7.8 L ABG Hemoglobin 13.2 L 11.9 L ABG Oxyhemoglobin ABG Potassium ABG Glucose Oxyhemoglobin 91.0 L 92.7 L Carboxyhemoglobin Sodium Potassium Chloride Carbon Dioxide BUN Creatinine Glucose POC Glucose Calcium Ferritin Total Bilirubin Alkaline Phosphatase Lactate Dehydrogenase Total Creatine Kinase CK-MB (CK-2) Rel Index Troponin T 0.034 H D C-Reactive Protein Total Protein Albumin Prealbumin LDL Cholesterol Direct HDL Cholesterol Arterial Blood Glucose Arterial Blood Ionized Calcium Urine WBC (Auto) 02/25/20 02/25/20 02/25/20 04:00 04:00 12:26 WBC 22.9 H RBC Hgb Hct MCV 83 L MCH 27 L RDW Plt Count 468 H Lymph % (Auto) Coffee % (Auto) Lymph # (Auto) Coffee # (Auto) Seg Neutrophils % Seg Neuts % (Manual) 89.0 H Lymphocytes % (Manual) 7.0 L Monocytes % (Manual) Basophils % (Manual) Seg Neutrophils # Seg Neutrophils # Man 20.4 H Lymphocytes # (Manual) Monocytes # (Manual) Eosinophils # (Manual) Basophils # (Manual) PT INR D-Dimer ABG pH POC ABG pCO2 POC ABG pO2 ABG pO2 ABG HCO3 ABG O2 Saturation ABG Base Excess ABG Hemoglobin ABG Oxyhemoglobin ABG Potassium 2.6 L ABG Glucose 142 H Oxyhemoglobin Carboxyhemoglobin Sodium Potassium 3.2 L Chloride Carbon Dioxide 18 L BUN Creatinine 0.2 L Glucose 114 H POC Glucose Calcium Ferritin Total Bilirubin Alkaline Phosphatase Lactate Dehydrogenase Total Creatine Kinase CK-MB (CK-2) Rel Index Troponin T C-Reactive Protein Total Protein Albumin 3.5 L Prealbumin LDL Cholesterol Direct HDL Cholesterol Arterial Blood Glucose 142 H Arterial Blood Ionized Calcium Urine WBC (Auto) 02/26/20 02/26/20 02/26/20 15:58 17:00 23:43 WBC RBC Hgb Hct MCV MCH RDW Plt Count Lymph % (Auto) Coffee % (Auto) Lymph # (Auto) Coffee # (Auto) Seg Neutrophils % Seg Neuts % (Manual) Lymphocytes % (Manual) Monocytes % (Manual) Basophils % (Manual) Seg Neutrophils # Seg Neutrophils # Man Lymphocytes # (Manual) Monocytes # (Manual) Eosinophils # (Manual) Basophils # (Manual) PT INR D-Dimer ABG pH 7.502 H POC ABG pCO2 POC ABG pO2 213.6 H ABG pO2 ABG HCO3 ABG O2 Saturation ABG Base Excess ABG Hemoglobin ABG Oxyhemoglobin 99.2 H ABG Potassium 2.9 L ABG Glucose 160 H Oxyhemoglobin Carboxyhemoglobin 0.4 L Sodium Potassium Chloride Carbon Dioxide BUN Creatinine Glucose POC Glucose 189 H 120 H Calcium Ferritin Total Bilirubin Alkaline Phosphatase Lactate Dehydrogenase Total Creatine Kinase CK-MB (CK-2) Rel Index Troponin T C-Reactive Protein Total Protein Albumin Prealbumin LDL Cholesterol Direct HDL Cholesterol Arterial Blood Glucose 160 H Arterial Blood Ionized Calcium 4.5 L Urine WBC (Auto) 02/27/20 02/27/20 02/27/20 05:00 07:04 17:45 WBC RBC Hgb Hct MCV MCH RDW Plt Count Lymph % (Auto) Coffee % (Auto) Lymph # (Auto) Coffee # (Auto) Seg Neutrophils % Seg Neuts % (Manual) Lymphocytes % (Manual) Monocytes % (Manual) Basophils % (Manual) Seg Neutrophils # Seg Neutrophils # Man Lymphocytes # (Manual) Monocytes # (Manual) Eosinophils # (Manual) Basophils # (Manual) PT INR D-Dimer ABG pH 7.524 H POC ABG pCO2 POC ABG pO2 ABG pO2 ABG HCO3 ABG O2 Saturation ABG Base Excess ABG Hemoglobin ABG Oxyhemoglobin ABG Potassium 3.0 L ABG Glucose 143 H Oxyhemoglobin Carboxyhemoglobin Sodium Potassium Chloride Carbon Dioxide BUN Creatinine Glucose POC Glucose 154 H 175 H Calcium Ferritin Total Bilirubin Alkaline Phosphatase Lactate Dehydrogenase Total Creatine Kinase CK-MB (CK-2) Rel Index Troponin T C-Reactive Protein Total Protein Albumin Prealbumin LDL Cholesterol Direct HDL Cholesterol Arterial Blood Glucose 143 H Arterial Blood Ionized Calcium Urine WBC (Auto) 02/27/20 02/28/20 02/28/20 Unknown 00:21 04:15 WBC 18.7 H RBC Hgb Hct MCV MCH RDW Plt Count Lymph % (Auto) 8.7 L Coffee % (Auto) Lymph # (Auto) Coffee # (Auto) 1.2 H Seg Neutrophils % 84.6 H Seg Neuts % (Manual) Lymphocytes % (Manual) Monocytes % (Manual) Basophils % (Manual) Seg Neutrophils # 15.9 H Seg Neutrophils # Man Lymphocytes # (Manual) Monocytes # (Manual) Eosinophils # (Manual) Basophils # (Manual) PT INR D-Dimer ABG pH POC ABG pCO2 POC ABG pO2 ABG pO2 ABG HCO3 ABG O2 Saturation ABG Base Excess ABG Hemoglobin ABG Oxyhemoglobin ABG Potassium ABG Glucose Oxyhemoglobin Carboxyhemoglobin Sodium Potassium 2.9 L* Chloride Carbon Dioxide 33 H D BUN Creatinine < 0.2 L Glucose 157 H POC Glucose 134 H Calcium Ferritin Total Bilirubin Alkaline Phosphatase Lactate Dehydrogenase Total Creatine Kinase CK-MB (CK-2) Rel Index Troponin T C-Reactive Protein Total Protein Albumin Prealbumin LDL Cholesterol Direct HDL Cholesterol Arterial Blood Glucose Arterial Blood Ionized Calcium Urine WBC (Auto) 02/28/20 02/28/20 02/28/20 04:15 05:16 05:39 WBC RBC Hgb Hct MCV MCH RDW Plt Count Lymph % (Auto) Coffee % (Auto) Lymph # (Auto) Coffee # (Auto) Seg Neutrophils % Seg Neuts % (Manual) Lymphocytes % (Manual) Monocytes % (Manual) Basophils % (Manual) Seg Neutrophils # Seg Neutrophils # Man Lymphocytes # (Manual) Monocytes # (Manual) Eosinophils # (Manual) Basophils # (Manual) PT INR D-Dimer ABG pH POC ABG pCO2 POC ABG pO2 ABG pO2 142.9 H ABG HCO3 34.1 H ABG O2 Saturation ABG Base Excess 8.3 H ABG Hemoglobin ABG Oxyhemoglobin ABG Potassium ABG Glucose Oxyhemoglobin Carboxyhemoglobin Sodium 151 H Potassium Chloride Carbon Dioxide 32 H BUN Creatinine 0.2 L Glucose 167 H POC Glucose 138 H Calcium Ferritin Total Bilirubin Alkaline Phosphatase Lactate Dehydrogenase Total Creatine Kinase CK-MB (CK-2) Rel Index Troponin T C-Reactive Protein Total Protein Albumin Prealbumin LDL Cholesterol Direct HDL Cholesterol Arterial Blood Glucose Arterial Blood Ionized Calcium Urine WBC (Auto) 02/28/20 02/28/20 02/28/20 11:05 11:33 12:54 WBC RBC Hgb Hct MCV MCH RDW Plt Count Lymph % (Auto) Coffee % (Auto) Lymph # (Auto) Coffee # (Auto) Seg Neutrophils % Seg Neuts % (Manual) Lymphocytes % (Manual) Monocytes % (Manual) Basophils % (Manual) Seg Neutrophils # Seg Neutrophils # Man Lymphocytes # (Manual) Monocytes # (Manual) Eosinophils # (Manual) Basophils # (Manual) PT INR D-Dimer ABG pH POC ABG pCO2 POC ABG pO2 ABG pO2 ABG HCO3 ABG O2 Saturation ABG Base Excess ABG Hemoglobin ABG Oxyhemoglobin ABG Potassium ABG Glucose Oxyhemoglobin Carboxyhemoglobin Sodium Potassium Chloride Carbon Dioxide BUN Creatinine Glucose POC Glucose 160 H Calcium Ferritin Total Bilirubin Alkaline Phosphatase Lactate Dehydrogenase Total Creatine Kinase CK-MB (CK-2) Rel Index Troponin T C-Reactive Protein 4.70 H Total Protein Albumin Prealbumin 0.090 L LDL Cholesterol Direct HDL Cholesterol Arterial Blood Glucose Arterial Blood Ionized Calcium Urine WBC (Auto) 02/28/20 02/29/20 02/29/20 17:34 00:44 04:05 WBC 19.6 H RBC Hgb Hct MCV MCH 27 L RDW 15.4 H Plt Count Lymph % (Auto) Coffee % (Auto) Lymph # (Auto) Coffee # (Auto) Seg Neutrophils % Seg Neuts % (Manual) 86.0 H Lymphocytes % (Manual) 7.0 L Monocytes % (Manual) Basophils % (Manual) Seg Neutrophils # Seg Neutrophils # Man 16.9 H Lymphocytes # (Manual) Monocytes # (Manual) 1.2 H Eosinophils # (Manual) Basophils # (Manual) PT INR D-Dimer ABG pH POC ABG pCO2 POC ABG pO2 ABG pO2 ABG HCO3 ABG O2 Saturation ABG Base Excess ABG Hemoglobin ABG Oxyhemoglobin ABG Potassium ABG Glucose Oxyhemoglobin Carboxyhemoglobin Sodium Potassium Chloride Carbon Dioxide BUN Creatinine Glucose POC Glucose 136 H 156 H Calcium Ferritin Total Bilirubin Alkaline Phosphatase Lactate Dehydrogenase Total Creatine Kinase CK-MB (CK-2) Rel Index Troponin T C-Reactive Protein Total Protein Albumin Prealbumin LDL Cholesterol Direct HDL Cholesterol Arterial Blood Glucose Arterial Blood Ionized Calcium Urine WBC (Auto) 02/29/20 02/29/20 02/29/20 04:05 05:14 05:33 WBC RBC Hgb Hct MCV MCH RDW Plt Count Lymph % (Auto) Coffee % (Auto) Lymph # (Auto) Coffee # (Auto) Seg Neutrophils % Seg Neuts % (Manual) Lymphocytes % (Manual) Monocytes % (Manual) Basophils % (Manual) Seg Neutrophils # Seg Neutrophils # Man Lymphocytes # (Manual) Monocytes # (Manual) Eosinophils # (Manual) Basophils # (Manual) PT INR D-Dimer ABG pH POC ABG pCO2 54.3 H POC ABG pO2 124.8 H ABG pO2 ABG HCO3 ABG O2 Saturation ABG Base Excess ABG Hemoglobin ABG Oxyhemoglobin ABG Potassium ABG Glucose 185 H Oxyhemoglobin Carboxyhemoglobin Sodium 148 H Potassium Chloride Carbon Dioxide 33 H BUN Creatinine < 0.2 L Glucose 173 H POC Glucose 152 H Calcium Ferritin Total Bilirubin Alkaline Phosphatase Lactate Dehydrogenase Total Creatine Kinase CK-MB (CK-2) Rel Index Troponin T C-Reactive Protein Total Protein Albumin Prealbumin LDL Cholesterol Direct HDL Cholesterol Arterial Blood Glucose 185 H Arterial Blood Ionized Calcium Urine WBC (Auto) 03/01/20 03/01/20 03/01/20 00:00 03:45 04:33 WBC 23.1 H RBC Hgb Hct MCV MCH 27 L RDW 15.3 H Plt Count Lymph % (Auto) Coffee % (Auto) Lymph # (Auto) Coffee # (Auto) Seg Neutrophils % Seg Neuts % (Manual) 92.0 H Lymphocytes % (Manual) 6.0 L Monocytes % (Manual) Basophils % (Manual) Seg Neutrophils # Seg Neutrophils # Man 21.3 H Lymphocytes # (Manual) Monocytes # (Manual) Eosinophils # (Manual) 0.5 H Basophils # (Manual) PT INR D-Dimer ABG pH 7.492 H POC ABG pCO2 POC ABG pO2 ABG pO2 157.1 H ABG HCO3 32.3 H ABG O2 Saturation ABG Base Excess 8.1 H ABG Hemoglobin 13.2 L ABG Oxyhemoglobin ABG Potassium ABG Glucose Oxyhemoglobin Carboxyhemoglobin Sodium Potassium Chloride Carbon Dioxide BUN Creatinine Glucose POC Glucose 109 H Calcium Ferritin Total Bilirubin Alkaline Phosphatase Lactate Dehydrogenase Total Creatine Kinase CK-MB (CK-2) Rel Index Troponin T C-Reactive Protein Total Protein Albumin Prealbumin LDL Cholesterol Direct HDL Cholesterol Arterial Blood Glucose Arterial Blood Ionized Calcium Urine WBC (Auto) 03/01/20 03/01/20 03/01/20 04:33 05:29 12:32 WBC RBC Hgb Hct MCV MCH RDW Plt Count Lymph % (Auto) Coffee % (Auto) Lymph # (Auto) Coffee # (Auto) Seg Neutrophils % Seg Neuts % (Manual) Lymphocytes % (Manual) Monocytes % (Manual) Basophils % (Manual) Seg Neutrophils # Seg Neutrophils # Man Lymphocytes # (Manual) Monocytes # (Manual) Eosinophils # (Manual) Basophils # (Manual) PT INR D-Dimer ABG pH POC ABG pCO2 POC ABG pO2 ABG pO2 ABG HCO3 ABG O2 Saturation ABG Base Excess ABG Hemoglobin ABG Oxyhemoglobin ABG Potassium ABG Glucose Oxyhemoglobin Carboxyhemoglobin Sodium 146 H Potassium Chloride Carbon Dioxide 32 H BUN Creatinine < 0.2 L Glucose 120 H POC Glucose 120 H 128 H Calcium Ferritin Total Bilirubin Alkaline Phosphatase Lactate Dehydrogenase Total Creatine Kinase CK-MB (CK-2) Rel Index Troponin T C-Reactive Protein Total Protein Albumin Prealbumin LDL Cholesterol Direct HDL Cholesterol Arterial Blood Glucose Arterial Blood Ionized Calcium Urine WBC (Auto) 03/01/20 03/01/20 03/02/20 17:38 23:46 06:13 WBC RBC Hgb Hct MCV MCH RDW Plt Count Lymph % (Auto) Coffee % (Auto) Lymph # (Auto) Coffee # (Auto) Seg Neutrophils % Seg Neuts % (Manual) Lymphocytes % (Manual) Monocytes % (Manual) Basophils % (Manual) Seg Neutrophils # Seg Neutrophils # Man Lymphocytes # (Manual) Monocytes # (Manual) Eosinophils # (Manual) Basophils # (Manual) PT INR D-Dimer ABG pH POC ABG pCO2 POC ABG pO2 ABG pO2 ABG HCO3 ABG O2 Saturation ABG Base Excess ABG Hemoglobin ABG Oxyhemoglobin ABG Potassium ABG Glucose Oxyhemoglobin Carboxyhemoglobin Sodium Potassium Chloride Carbon Dioxide BUN Creatinine Glucose POC Glucose 114 H 121 H 120 H Calcium Ferritin Total Bilirubin Alkaline Phosphatase Lactate Dehydrogenase Total Creatine Kinase CK-MB (CK-2) Rel Index Troponin T C-Reactive Protein Total Protein Albumin Prealbumin LDL Cholesterol Direct HDL Cholesterol Arterial Blood Glucose Arterial Blood Ionized Calcium Urine WBC (Auto) 03/02/20 03/02/20 03/03/20 09:47 09:47 10:21 WBC 23.6 H RBC Hgb Hct MCV MCH RDW 15.3 H Plt Count 494 H Lymph % (Auto) Coffee % (Auto) Lymph # (Auto) Coffee # (Auto) Seg Neutrophils % Seg Neuts % (Manual) 85.0 H Lymphocytes % (Manual) 6.0 L Monocytes % (Manual) Basophils % (Manual) Seg Neutrophils # Seg Neutrophils # Man 20.1 H Lymphocytes # (Manual) Monocytes # (Manual) 1.7 H Eosinophils # (Manual) Basophils # (Manual) PT INR D-Dimer ABG pH POC ABG pCO2 POC ABG pO2 ABG pO2 ABG HCO3 ABG O2 Saturation ABG Base Excess ABG Hemoglobin ABG Oxyhemoglobin ABG Potassium 3.3 L ABG Glucose 158 H Oxyhemoglobin Carboxyhemoglobin Sodium Potassium Chloride Carbon Dioxide BUN Creatinine < 0.2 L Glucose 177 H POC Glucose Calcium Ferritin Total Bilirubin Alkaline Phosphatase Lactate Dehydrogenase Total Creatine Kinase CK-MB (CK-2) Rel Index Troponin T C-Reactive Protein Total Protein Albumin Prealbumin LDL Cholesterol Direct HDL Cholesterol Arterial Blood Glucose 158 H Arterial Blood Ionized Calcium Urine WBC (Auto) 03/03/20 03/04/20 03/04/20 21:30 00:00 12:23 WBC RBC Hgb Hct MCV MCH RDW Plt Count Lymph % (Auto) Coffee % (Auto) Lymph # (Auto) Coffee # (Auto) Seg Neutrophils % Seg Neuts % (Manual) Lymphocytes % (Manual) Monocytes % (Manual) Basophils % (Manual) Seg Neutrophils # Seg Neutrophils # Man Lymphocytes # (Manual) Monocytes # (Manual) Eosinophils # (Manual) Basophils # (Manual) PT INR D-Dimer ABG pH 7.328 L POC ABG pCO2 POC ABG pO2 ABG pO2 68.4 L ABG HCO3 35.0 H ABG O2 Saturation 93.9 L ABG Base Excess 6.8 H ABG Hemoglobin 12.7 L ABG Oxyhemoglobin ABG Potassium ABG Glucose Oxyhemoglobin 91.9 L Carboxyhemoglobin Sodium Potassium Chloride Carbon Dioxide BUN Creatinine Glucose POC Glucose 187 H 163 H Calcium Ferritin Total Bilirubin Alkaline Phosphatase Lactate Dehydrogenase Total Creatine Kinase CK-MB (CK-2) Rel Index Troponin T C-Reactive Protein Total Protein Albumin Prealbumin LDL Cholesterol Direct HDL Cholesterol Arterial Blood Glucose Arterial Blood Ionized Calcium Urine WBC (Auto) 03/04/20 03/04/20 03/05/20 18:15 21:30 06:02 WBC RBC Hgb Hct MCV MCH RDW Plt Count Lymph % (Auto) Coffee % (Auto) Lymph # (Auto) Coffee # (Auto) Seg Neutrophils % Seg Neuts % (Manual) Lymphocytes % (Manual) Monocytes % (Manual) Basophils % (Manual) Seg Neutrophils # Seg Neutrophils # Man Lymphocytes # (Manual) Monocytes # (Manual) Eosinophils # (Manual) Basophils # (Manual) PT INR D-Dimer ABG pH 7.297 L POC ABG pCO2 POC ABG pO2 ABG pO2 ABG HCO3 41.0 H ABG O2 Saturation ABG Base Excess 11.0 H ABG Hemoglobin 13.1 L ABG Oxyhemoglobin ABG Potassium ABG Glucose Oxyhemoglobin 94.5 L Carboxyhemoglobin Sodium Potassium Chloride Carbon Dioxide BUN Creatinine Glucose POC Glucose 192 H 127 H Calcium Ferritin Total Bilirubin Alkaline Phosphatase Lactate Dehydrogenase Total Creatine Kinase CK-MB (CK-2) Rel Index Troponin T C-Reactive Protein Total Protein Albumin Prealbumin LDL Cholesterol Direct HDL Cholesterol Arterial Blood Glucose Arterial Blood Ionized Calcium Urine WBC (Auto) 03/05/20 03/05/20 03/06/20 12:09 16:42 00:24 WBC RBC Hgb Hct MCV MCH RDW Plt Count Lymph % (Auto) Coffee % (Auto) Lymph # (Auto) Coffee # (Auto) Seg Neutrophils % Seg Neuts % (Manual) Lymphocytes % (Manual) Monocytes % (Manual) Basophils % (Manual) Seg Neutrophils # Seg Neutrophils # Man Lymphocytes # (Manual) Monocytes # (Manual) Eosinophils # (Manual) Basophils # (Manual) PT INR D-Dimer ABG pH POC ABG pCO2 POC ABG pO2 ABG pO2 ABG HCO3 ABG O2 Saturation ABG Base Excess ABG Hemoglobin ABG Oxyhemoglobin ABG Potassium ABG Glucose Oxyhemoglobin Carboxyhemoglobin Sodium Potassium Chloride Carbon Dioxide BUN Creatinine Glucose POC Glucose 147 H 114 H 134 H Calcium Ferritin Total Bilirubin Alkaline Phosphatase Lactate Dehydrogenase Total Creatine Kinase CK-MB (CK-2) Rel Index Troponin T C-Reactive Protein Total Protein Albumin Prealbumin LDL Cholesterol Direct HDL Cholesterol Arterial Blood Glucose Arterial Blood Ionized Calcium Urine WBC (Auto) 03/06/20 03/06/20 03/06/20 04:34 05:53 06:08 WBC 25.4 H RBC Hgb 10.5 L Hct 32.7 L MCV MCH 27 L RDW 15.3 H Plt Count 634 H Lymph % (Auto) Coffee % (Auto) Lymph # (Auto) Coffee # (Auto) Seg Neutrophils % Seg Neuts % (Manual) 88.0 H Lymphocytes % (Manual) 2.0 L Monocytes % (Manual) 8.0 H Basophils % (Manual) Seg Neutrophils # Seg Neutrophils # Man 22.4 H Lymphocytes # (Manual) 0.5 L Monocytes # (Manual) 2.0 H Eosinophils # (Manual) Basophils # (Manual) PT INR D-Dimer ABG pH POC ABG pCO2 POC ABG pO2 ABG pO2 ABG HCO3 37.9 H ABG O2 Saturation ABG Base Excess 11.4 H ABG Hemoglobin 10.6 L ABG Oxyhemoglobin ABG Potassium ABG Glucose Oxyhemoglobin 94.7 L Carboxyhemoglobin Sodium Potassium Chloride Carbon Dioxide BUN Creatinine Glucose POC Glucose 135 H Calcium Ferritin Total Bilirubin Alkaline Phosphatase Lactate Dehydrogenase Total Creatine Kinase CK-MB (CK-2) Rel Index Troponin T C-Reactive Protein Total Protein Albumin Prealbumin LDL Cholesterol Direct HDL Cholesterol Arterial Blood Glucose Arterial Blood Ionized Calcium Urine WBC (Auto) 03/06/20 03/06/20 03/06/20 06:08 12:19 19:10 WBC RBC Hgb Hct MCV MCH RDW Plt Count Lymph % (Auto) Coffee % (Auto) Lymph # (Auto) Coffee # (Auto) Seg Neutrophils % Seg Neuts % (Manual) Lymphocytes % (Manual) Monocytes % (Manual) Basophils % (Manual) Seg Neutrophils # Seg Neutrophils # Man Lymphocytes # (Manual) Monocytes # (Manual) Eosinophils # (Manual) Basophils # (Manual) PT INR D-Dimer ABG pH POC ABG pCO2 POC ABG pO2 ABG pO2 ABG HCO3 ABG O2 Saturation ABG Base Excess ABG Hemoglobin ABG Oxyhemoglobin ABG Potassium ABG Glucose Oxyhemoglobin Carboxyhemoglobin Sodium 150 H D Potassium Chloride Carbon Dioxide 39 H D BUN 23 H Creatinine < 0.2 L Glucose 144 H POC Glucose 169 H 152 H Calcium Ferritin Total Bilirubin Alkaline Phosphatase Lactate Dehydrogenase Total Creatine Kinase CK-MB (CK-2) Rel Index Troponin T C-Reactive Protein Total Protein Albumin 3.3 L Prealbumin LDL Cholesterol Direct HDL Cholesterol Arterial Blood Glucose Arterial Blood Ionized Calcium Urine WBC (Auto) 03/06/20 03/07/20 03/07/20 23:58 04:25 04:25 WBC 22.1 H RBC Hgb 10.9 L Hct 32.9 L MCV MCH RDW 15.5 H Plt Count 739 H Lymph % (Auto) 7.8 L Coffee % (Auto) Lymph # (Auto) Coffee # (Auto) 1.3 H Seg Neutrophils % 85.5 H Seg Neuts % (Manual) Lymphocytes % (Manual) Monocytes % (Manual) Basophils % (Manual) Seg Neutrophils # 18.9 H Seg Neutrophils # Man Lymphocytes # (Manual) Monocytes # (Manual) Eosinophils # (Manual) Basophils # (Manual) PT INR D-Dimer ABG pH POC ABG pCO2 POC ABG pO2 ABG pO2 ABG HCO3 ABG O2 Saturation ABG Base Excess ABG Hemoglobin ABG Oxyhemoglobin ABG Potassium ABG Glucose Oxyhemoglobin Carboxyhemoglobin Sodium 146 H Potassium Chloride Carbon Dioxide 37 H BUN Creatinine < 0.2 L Glucose 118 H POC Glucose 111 H Calcium Ferritin Total Bilirubin Alkaline Phosphatase Lactate Dehydrogenase Total Creatine Kinase CK-MB (CK-2) Rel Index Troponin T C-Reactive Protein Total Protein Albumin 3.7 L Prealbumin LDL Cholesterol Direct HDL Cholesterol Arterial Blood Glucose Arterial Blood Ionized Calcium Urine WBC (Auto) 03/07/20 03/07/20 03/07/20 05:20 17:45 23:32 WBC RBC Hgb Hct MCV MCH RDW Plt Count Lymph % (Auto) Coffee % (Auto) Lymph # (Auto) Coffee # (Auto) Seg Neutrophils % Seg Neuts % (Manual) Lymphocytes % (Manual) Monocytes % (Manual) Basophils % (Manual) Seg Neutrophils # Seg Neutrophils # Man Lymphocytes # (Manual) Monocytes # (Manual) Eosinophils # (Manual) Basophils # (Manual) PT INR D-Dimer ABG pH POC ABG pCO2 POC ABG pO2 ABG pO2 ABG HCO3 ABG O2 Saturation ABG Base Excess ABG Hemoglobin ABG Oxyhemoglobin ABG Potassium ABG Glucose Oxyhemoglobin Carboxyhemoglobin Sodium Potassium Chloride Carbon Dioxide BUN Creatinine Glucose POC Glucose 113 H 124 H 210 H Calcium Ferritin Total Bilirubin Alkaline Phosphatase Lactate Dehydrogenase Total Creatine Kinase CK-MB (CK-2) Rel Index Troponin T C-Reactive Protein Total Protein Albumin Prealbumin LDL Cholesterol Direct HDL Cholesterol Arterial Blood Glucose Arterial Blood Ionized Calcium Urine WBC (Auto) 03/08/20 03/08/20 03/08/20 05:35 06:43 06:43 WBC 28.9 H RBC 3.53 L Hgb 9.7 L Hct 30.3 L MCV MCH RDW 15.6 H Plt Count 578 H Lymph % (Auto) Coffee % (Auto) Lymph # (Auto) Coffee # (Auto) Seg Neutrophils % Seg Neuts % (Manual) 93.0 H Lymphocytes % (Manual) 4.0 L Monocytes % (Manual) Basophils % (Manual) Seg Neutrophils # Seg Neutrophils # Man 26.9 H Lymphocytes # (Manual) Monocytes # (Manual) Eosinophils # (Manual) Basophils # (Manual) PT INR D-Dimer ABG pH POC ABG pCO2 POC ABG pO2 ABG pO2 ABG HCO3 ABG O2 Saturation ABG Base Excess ABG Hemoglobin ABG Oxyhemoglobin ABG Potassium ABG Glucose Oxyhemoglobin Carboxyhemoglobin Sodium 146 H Potassium Chloride Carbon Dioxide 35 H BUN 34 H Creatinine 0.3 L D Glucose 125 H POC Glucose 147 H Calcium Ferritin Total Bilirubin Alkaline Phosphatase Lactate Dehydrogenase Total Creatine Kinase CK-MB (CK-2) Rel Index Troponin T C-Reactive Protein Total Protein 5.9 L Albumin 3.2 L Prealbumin LDL Cholesterol Direct HDL Cholesterol Arterial Blood Glucose Arterial Blood Ionized Calcium Urine WBC (Auto) 03/08/20 03/08/20 03/08/20 08:57 11:14 12:34 WBC RBC Hgb Hct MCV MCH RDW Plt Count Lymph % (Auto) Coffee % (Auto) Lymph # (Auto) Coffee # (Auto) Seg Neutrophils % Seg Neuts % (Manual) Lymphocytes % (Manual) Monocytes % (Manual) Basophils % (Manual) Seg Neutrophils # Seg Neutrophils # Man Lymphocytes # (Manual) Monocytes # (Manual) Eosinophils # (Manual) Basophils # (Manual) PT INR D-Dimer ABG pH POC ABG pCO2 63.1 H POC ABG pO2 ABG pO2 ABG HCO3 ABG O2 Saturation ABG Base Excess ABG Hemoglobin 10.9 L ABG Oxyhemoglobin ABG Potassium ABG Glucose 176 H Oxyhemoglobin Carboxyhemoglobin Sodium Potassium Chloride Carbon Dioxide BUN Creatinine Glucose POC Glucose 171 H Calcium Ferritin Total Bilirubin Alkaline Phosphatase Lactate Dehydrogenase Total Creatine Kinase CK-MB (CK-2) Rel Index Troponin T C-Reactive Protein Total Protein Albumin Prealbumin LDL Cholesterol Direct HDL Cholesterol Arterial Blood Glucose 176 H Arterial Blood Ionized Calcium 4.5 L Urine WBC (Auto) 10.0 H 03/08/20 03/08/20 03/09/20 18:02 23:43 05:49 WBC RBC Hgb Hct MCV MCH RDW Plt Count Lymph % (Auto) Coffee % (Auto) Lymph # (Auto) Coffee # (Auto) Seg Neutrophils % Seg Neuts % (Manual) Lymphocytes % (Manual) Monocytes % (Manual) Basophils % (Manual) Seg Neutrophils # Seg Neutrophils # Man Lymphocytes # (Manual) Monocytes # (Manual) Eosinophils # (Manual) Basophils # (Manual) PT INR D-Dimer ABG pH POC ABG pCO2 POC ABG pO2 ABG pO2 ABG HCO3 ABG O2 Saturation ABG Base Excess ABG Hemoglobin ABG Oxyhemoglobin ABG Potassium ABG Glucose Oxyhemoglobin Carboxyhemoglobin Sodium Potassium Chloride Carbon Dioxide BUN Creatinine Glucose POC Glucose 157 H 134 H 163 H Calcium Ferritin Total Bilirubin Alkaline Phosphatase Lactate Dehydrogenase Total Creatine Kinase CK-MB (CK-2) Rel Index Troponin T C-Reactive Protein Total Protein Albumin Prealbumin LDL Cholesterol Direct HDL Cholesterol Arterial Blood Glucose Arterial Blood Ionized Calcium Urine WBC (Auto) 03/09/20 03/09/20 03/09/20 08:35 08:35 12:11 WBC 23.4 H RBC 3.36 L Hgb 9.3 L Hct 28.8 L MCV MCH RDW 15.9 H Plt Count 521 H Lymph % (Auto) Coffee % (Auto) Lymph # (Auto) Coffee # (Auto) Seg Neutrophils % Seg Neuts % (Manual) 87.0 H Lymphocytes % (Manual) 4.0 L Monocytes % (Manual) 9.0 H Basophils % (Manual) Seg Neutrophils # Seg Neutrophils # Man 20.4 H Lymphocytes # (Manual) 0.9 L Monocytes # (Manual) 2.1 H Eosinophils # (Manual) Basophils # (Manual) PT INR D-Dimer ABG pH POC ABG pCO2 POC ABG pO2 ABG pO2 ABG HCO3 ABG O2 Saturation ABG Base Excess ABG Hemoglobin ABG Oxyhemoglobin ABG Potassium ABG Glucose Oxyhemoglobin Carboxyhemoglobin Sodium 147 H Potassium Chloride Carbon Dioxide 37 H BUN 63 H Creatinine Glucose 154 H POC Glucose 128 H Calcium Ferritin Total Bilirubin Alkaline Phosphatase Lactate Dehydrogenase Total Creatine Kinase CK-MB (CK-2) Rel Index Troponin T C-Reactive Protein Total Protein Albumin Prealbumin LDL Cholesterol Direct HDL Cholesterol Arterial Blood Glucose Arterial Blood Ionized Calcium Urine WBC (Auto) 1103/10/20 03/10/20 17:51 00:25 05:41 WBC RBC Hgb Hct MCV MCH RDW Plt Count Lymph % (Auto) Coffee % (Auto) Lymph # (Auto) Coffee # (Auto) Seg Neutrophils % Seg Neuts % (Manual) Lymphocytes % (Manual) Monocytes % (Manual) Basophils % (Manual) Seg Neutrophils # Seg Neutrophils # Man Lymphocytes # (Manual) Monocytes # (Manual) Eosinophils # (Manual) Basophils # (Manual) PT INR D-Dimer ABG pH POC ABG pCO2 POC ABG pO2 ABG pO2 ABG HCO3 ABG O2 Saturation ABG Base Excess ABG Hemoglobin ABG Oxyhemoglobin ABG Potassium ABG Glucose Oxyhemoglobin Carboxyhemoglobin Sodium Potassium Chloride Carbon Dioxide BUN Creatinine Glucose POC Glucose 127 H 128 H 153 H Calcium Ferritin Total Bilirubin Alkaline Phosphatase Lactate Dehydrogenase Total Creatine Kinase CK-MB (CK-2) Rel Index Troponin T C-Reactive Protein Total Protein Albumin Prealbumin LDL Cholesterol Direct HDL Cholesterol Arterial Blood Glucose Arterial Blood Ionized Calcium Urine WBC (Auto) 03/10/20 03/10/20 03/10/20 06:14 06:14 12:02 WBC 18.3 H RBC 3.45 L Hgb 9.5 L Hct 29.5 L MCV MCH RDW 16.1 H Plt Count 494 H Lymph % (Auto) Coffee % (Auto) Lymph # (Auto) Coffee # (Auto) Seg Neutrophils % Seg Neuts % (Manual) 95.0 H Lymphocytes % (Manual) 1.0 L Monocytes % (Manual) Basophils % (Manual) Seg Neutrophils # Seg Neutrophils # Man 17.4 H Lymphocytes # (Manual) 0.2 L Monocytes # (Manual) Eosinophils # (Manual) Basophils # (Manual) PT INR D-Dimer ABG pH POC ABG pCO2 POC ABG pO2 ABG pO2 ABG HCO3 ABG O2 Saturation ABG Base Excess ABG Hemoglobin ABG Oxyhemoglobin ABG Potassium ABG Glucose Oxyhemoglobin Carboxyhemoglobin Sodium 149 H Potassium Chloride Carbon Dioxide 35 H BUN 34 H Creatinine 0.2 L D Glucose 177 H POC Glucose 151 H Calcium Ferritin Total Bilirubin Alkaline Phosphatase Lactate Dehydrogenase Total Creatine Kinase CK-MB (CK-2) Rel Index Troponin T C-Reactive Protein Total Protein Albumin Prealbumin LDL Cholesterol Direct HDL Cholesterol Arterial Blood Glucose Arterial Blood Ionized Calcium Urine WBC (Auto) 03/10/20 03/10/20 03/11/20 17:41 23:53 05:02 WBC RBC Hgb Hct MCV MCH RDW Plt Count Lymph % (Auto) Coffee % (Auto) Lymph # (Auto) Coffee # (Auto) Seg Neutrophils % Seg Neuts % (Manual) Lymphocytes % (Manual) Monocytes % (Manual) Basophils % (Manual) Seg Neutrophils # Seg Neutrophils # Man Lymphocytes # (Manual) Monocytes # (Manual) Eosinophils # (Manual) Basophils # (Manual) PT INR D-Dimer ABG pH POC ABG pCO2 POC ABG pO2 ABG pO2 ABG HCO3 ABG O2 Saturation ABG Base Excess ABG Hemoglobin ABG Oxyhemoglobin ABG Potassium ABG Glucose Oxyhemoglobin Carboxyhemoglobin Sodium Potassium Chloride Carbon Dioxide BUN Creatinine Glucose POC Glucose 168 H 142 H 146 H Calcium Ferritin Total Bilirubin Alkaline Phosphatase Lactate Dehydrogenase Total Creatine Kinase CK-MB (CK-2) Rel Index Troponin T C-Reactive Protein Total Protein Albumin Prealbumin LDL Cholesterol Direct HDL Cholesterol Arterial Blood Glucose Arterial Blood Ionized Calcium Urine WBC (Auto) 03/11/20 03/11/20 03/11/20 11:30 14:01 14:01 WBC 19.7 H RBC 3.04 L Hgb 8.7 L Hct 25.8 L MCV MCH RDW 15.6 H Plt Count Lymph % (Auto) Coffee % (Auto) Lymph # (Auto) Coffee # (Auto) Seg Neutrophils % Seg Neuts % (Manual) Lymphocytes % (Manual) Monocytes % (Manual) Basophils % (Manual) Seg Neutrophils # Seg Neutrophils # Man Lymphocytes # (Manual) Monocytes # (Manual) Eosinophils # (Manual) Basophils # (Manual) PT INR D-Dimer ABG pH POC ABG pCO2 POC ABG pO2 ABG pO2 ABG HCO3 ABG O2 Saturation ABG Base Excess ABG Hemoglobin ABG Oxyhemoglobin ABG Potassium ABG Glucose Oxyhemoglobin Carboxyhemoglobin Sodium 151 H Potassium Chloride Carbon Dioxide 37 H BUN Creatinine < 0.2 L Glucose 171 H POC Glucose 248 H Calcium Ferritin Total Bilirubin Alkaline Phosphatase Lactate Dehydrogenase Total Creatine Kinase CK-MB (CK-2) Rel Index Troponin T C-Reactive Protein Total Protein Albumin Prealbumin LDL Cholesterol Direct HDL Cholesterol Arterial Blood Glucose Arterial Blood Ionized Calcium Urine WBC (Auto) 03/11/20 03/11/20 03/12/20 17:09 23:52 04:39 WBC 19.9 H RBC 3.16 L Hgb 8.9 L Hct 27.5 L MCV MCH RDW 15.7 H Plt Count Lymph % (Auto) 6.8 L Coffee % (Auto) Lymph # (Auto) Coffee # (Auto) 1.2 H Seg Neutrophils % 86.0 H Seg Neuts % (Manual) Lymphocytes % (Manual) Monocytes % (Manual) Basophils % (Manual) Seg Neutrophils # 17.1 H Seg Neutrophils # Man Lymphocytes # (Manual) Monocytes # (Manual) Eosinophils # (Manual) Basophils # (Manual) PT INR D-Dimer ABG pH POC ABG pCO2 POC ABG pO2 ABG pO2 ABG HCO3 ABG O2 Saturation ABG Base Excess ABG Hemoglobin ABG Oxyhemoglobin ABG Potassium ABG Glucose Oxyhemoglobin Carboxyhemoglobin Sodium Potassium Chloride Carbon Dioxide BUN Creatinine Glucose POC Glucose 124 H 131 H Calcium Ferritin Total Bilirubin Alkaline Phosphatase Lactate Dehydrogenase Total Creatine Kinase CK-MB (CK-2) Rel Index Troponin T C-Reactive Protein Total Protein Albumin Prealbumin LDL Cholesterol Direct HDL Cholesterol Arterial Blood Glucose Arterial Blood Ionized Calcium Urine WBC (Auto) 03/12/20 03/12/20 03/12/20 04:39 05:28 11:34 WBC RBC Hgb Hct MCV MCH RDW Plt Count Lymph % (Auto) Coffee % (Auto) Lymph # (Auto) Coffee # (Auto) Seg Neutrophils % Seg Neuts % (Manual) Lymphocytes % (Manual) Monocytes % (Manual) Basophils % (Manual) Seg Neutrophils # Seg Neutrophils # Man Lymphocytes # (Manual) Monocytes # (Manual) Eosinophils # (Manual) Basophils # (Manual) PT INR D-Dimer ABG pH POC ABG pCO2 POC ABG pO2 ABG pO2 ABG HCO3 ABG O2 Saturation ABG Base Excess ABG Hemoglobin ABG Oxyhemoglobin ABG Potassium ABG Glucose Oxyhemoglobin Carboxyhemoglobin Sodium 147 H Potassium Chloride Carbon Dioxide 40 H BUN Creatinine < 0.2 L Glucose 175 H POC Glucose 167 H 144 H Calcium Ferritin Total Bilirubin Alkaline Phosphatase Lactate Dehydrogenase Total Creatine Kinase CK-MB (CK-2) Rel Index Troponin T C-Reactive Protein Total Protein Albumin Prealbumin LDL Cholesterol Direct HDL Cholesterol Arterial Blood Glucose Arterial Blood Ionized Calcium Urine WBC (Auto) 03/12/20 03/12/20 03/13/20 17:32 23:57 05:57 WBC RBC Hgb Hct MCV MCH RDW Plt Count Lymph % (Auto) Coffee % (Auto) Lymph # (Auto) Coffee # (Auto) Seg Neutrophils % Seg Neuts % (Manual) Lymphocytes % (Manual) Monocytes % (Manual) Basophils % (Manual) Seg Neutrophils # Seg Neutrophils # Man Lymphocytes # (Manual) Monocytes # (Manual) Eosinophils # (Manual) Basophils # (Manual) PT INR D-Dimer ABG pH POC ABG pCO2 POC ABG pO2 ABG pO2 ABG HCO3 ABG O2 Saturation ABG Base Excess ABG Hemoglobin ABG Oxyhemoglobin ABG Potassium ABG Glucose Oxyhemoglobin Carboxyhemoglobin Sodium Potassium Chloride Carbon Dioxide BUN Creatinine Glucose POC Glucose 141 H 137 H 161 H Calcium Ferritin Total Bilirubin Alkaline Phosphatase Lactate Dehydrogenase Total Creatine Kinase CK-MB (CK-2) Rel Index Troponin T C-Reactive Protein Total Protein Albumin Prealbumin LDL Cholesterol Direct HDL Cholesterol Arterial Blood Glucose Arterial Blood Ionized Calcium Urine WBC (Auto) 03/13/20 03/13/20 03/13/20 12:28 14:14 18:39 WBC RBC Hgb Hct MCV MCH RDW Plt Count Lymph % (Auto) Coffee % (Auto) Lymph # (Auto) Coffee # (Auto) Seg Neutrophils % Seg Neuts % (Manual) Lymphocytes % (Manual) Monocytes % (Manual) Basophils % (Manual) Seg Neutrophils # Seg Neutrophils # Man Lymphocytes # (Manual) Monocytes # (Manual) Eosinophils # (Manual) Basophils # (Manual) PT INR D-Dimer ABG pH POC ABG pCO2 POC ABG pO2 ABG pO2 ABG HCO3 ABG O2 Saturation ABG Base Excess ABG Hemoglobin ABG Oxyhemoglobin ABG Potassium ABG Glucose Oxyhemoglobin Carboxyhemoglobin Sodium Potassium Chloride Carbon Dioxide 39 H BUN Creatinine < 0.2 L Glucose 129 H POC Glucose 130 H 125 H Calcium Ferritin Total Bilirubin Alkaline Phosphatase Lactate Dehydrogenase Total Creatine Kinase CK-MB (CK-2) Rel Index Troponin T C-Reactive Protein Total Protein Albumin Prealbumin LDL Cholesterol Direct HDL Cholesterol Arterial Blood Glucose Arterial Blood Ionized Calcium Urine WBC (Auto) 03/13/20 03/14/20 03/14/20 23:33 05:24 08:07 WBC 16.8 H RBC 2.81 L Hgb 7.9 L Hct 23.9 L MCV MCH RDW 15.9 H Plt Count Lymph % (Auto) Coffee % (Auto) Lymph # (Auto) Coffee # (Auto) Seg Neutrophils % Seg Neuts % (Manual) 84.0 H Lymphocytes % (Manual) 10.0 L Monocytes % (Manual) Basophils % (Manual) Seg Neutrophils # Seg Neutrophils # Man 14.1 H Lymphocytes # (Manual) Monocytes # (Manual) Eosinophils # (Manual) Basophils # (Manual) PT INR D-Dimer ABG pH POC ABG pCO2 POC ABG pO2 ABG pO2 ABG HCO3 ABG O2 Saturation ABG Base Excess ABG Hemoglobin ABG Oxyhemoglobin ABG Potassium ABG Glucose Oxyhemoglobin Carboxyhemoglobin Sodium Potassium Chloride Carbon Dioxide BUN Creatinine Glucose POC Glucose 146 H 125 H Calcium Ferritin Total Bilirubin Alkaline Phosphatase Lactate Dehydrogenase Total Creatine Kinase CK-MB (CK-2) Rel Index Troponin T C-Reactive Protein Total Protein Albumin Prealbumin LDL Cholesterol Direct HDL Cholesterol Arterial Blood Glucose Arterial Blood Ionized Calcium Urine WBC (Auto) 03/14/20 03/14/20 03/14/20 08:07 12:21 18:26 WBC RBC Hgb Hct MCV MCH RDW Plt Count Lymph % (Auto) Coffee % (Auto) Lymph # (Auto) Coffee # (Auto) Seg Neutrophils % Seg Neuts % (Manual) Lymphocytes % (Manual) Monocytes % (Manual) Basophils % (Manual) Seg Neutrophils # Seg Neutrophils # Man Lymphocytes # (Manual) Monocytes # (Manual) Eosinophils # (Manual) Basophils # (Manual) PT INR D-Dimer ABG pH POC ABG pCO2 POC ABG pO2 ABG pO2 ABG HCO3 ABG O2 Saturation ABG Base Excess ABG Hemoglobin ABG Oxyhemoglobin ABG Potassium ABG Glucose Oxyhemoglobin Carboxyhemoglobin Sodium Potassium Chloride 97.0 L Carbon Dioxide 37 H BUN Creatinine < 0.2 L Glucose 129 H POC Glucose 109 H 142 H Calcium 8.3 L Ferritin Total Bilirubin Alkaline Phosphatase Lactate Dehydrogenase Total Creatine Kinase CK-MB (CK-2) Rel Index Troponin T C-Reactive Protein Total Protein Albumin Prealbumin LDL Cholesterol Direct HDL Cholesterol Arterial Blood Glucose Arterial Blood Ionized Calcium Urine WBC (Auto) 03/14/20 03/15/20 03/15/20 23:57 05:46 08:06 WBC 19.7 H RBC 3.29 L Hgb 9.1 L Hct 28.0 L MCV MCH RDW 15.9 H Plt Count Lymph % (Auto) Coffee % (Auto) Lymph # (Auto) Coffee # (Auto) Seg Neutrophils % Seg Neuts % (Manual) Lymphocytes % (Manual) Monocytes % (Manual) Basophils % (Manual) Seg Neutrophils # Seg Neutrophils # Man Lymphocytes # (Manual) Monocytes # (Manual) Eosinophils # (Manual) Basophils # (Manual) PT INR D-Dimer ABG pH POC ABG pCO2 POC ABG pO2 ABG pO2 ABG HCO3 ABG O2 Saturation ABG Base Excess ABG Hemoglobin ABG Oxyhemoglobin ABG Potassium ABG Glucose Oxyhemoglobin Carboxyhemoglobin Sodium Potassium Chloride Carbon Dioxide BUN Creatinine Glucose POC Glucose 157 H 118 H Calcium Ferritin Total Bilirubin Alkaline Phosphatase Lactate Dehydrogenase Total Creatine Kinase CK-MB (CK-2) Rel Index Troponin T C-Reactive Protein Total Protein Albumin Prealbumin LDL Cholesterol Direct HDL Cholesterol Arterial Blood Glucose Arterial Blood Ionized Calcium Urine WBC (Auto) 03/15/20 03/15/20 03/15/20 08:06 12:44 18:09 WBC RBC Hgb Hct MCV MCH RDW Plt Count Lymph % (Auto) Coffee % (Auto) Lymph # (Auto) Coffee # (Auto) Seg Neutrophils % Seg Neuts % (Manual) Lymphocytes % (Manual) Monocytes % (Manual) Basophils % (Manual) Seg Neutrophils # Seg Neutrophils # Man Lymphocytes # (Manual) Monocytes # (Manual) Eosinophils # (Manual) Basophils # (Manual) PT INR D-Dimer ABG pH POC ABG pCO2 POC ABG pO2 ABG pO2 ABG HCO3 ABG O2 Saturation ABG Base Excess ABG Hemoglobin ABG Oxyhemoglobin ABG Potassium ABG Glucose Oxyhemoglobin Carboxyhemoglobin Sodium 136 L Potassium Chloride 93.6 L Carbon Dioxide 37 H BUN Creatinine < 0.2 L Glucose 132 H POC Glucose 151 H 164 H Calcium Ferritin Total Bilirubin Alkaline Phosphatase Lactate Dehydrogenase Total Creatine Kinase CK-MB (CK-2) Rel Index Troponin T C-Reactive Protein Total Protein Albumin Prealbumin LDL Cholesterol Direct HDL Cholesterol Arterial Blood Glucose Arterial Blood Ionized Calcium Urine WBC (Auto) 03/15/20 03/16/20 03/16/20 23:26 05:39 11:58 WBC RBC Hgb Hct MCV MCH RDW Plt Count Lymph % (Auto) Coffee % (Auto) Lymph # (Auto) Coffee # (Auto) Seg Neutrophils % Seg Neuts % (Manual) Lymphocytes % (Manual) Monocytes % (Manual) Basophils % (Manual) Seg Neutrophils # Seg Neutrophils # Man Lymphocytes # (Manual) Monocytes # (Manual) Eosinophils # (Manual) Basophils # (Manual) PT INR D-Dimer ABG pH POC ABG pCO2 POC ABG pO2 ABG pO2 ABG HCO3 ABG O2 Saturation ABG Base Excess ABG Hemoglobin ABG Oxyhemoglobin ABG Potassium ABG Glucose Oxyhemoglobin Carboxyhemoglobin Sodium Potassium Chloride Carbon Dioxide BUN Creatinine Glucose POC Glucose 136 H 116 H 109 H Calcium Ferritin Total Bilirubin Alkaline Phosphatase Lactate Dehydrogenase Total Creatine Kinase CK-MB (CK-2) Rel Index Troponin T C-Reactive Protein Total Protein Albumin Prealbumin LDL Cholesterol Direct HDL Cholesterol Arterial Blood Glucose Arterial Blood Ionized Calcium Urine WBC (Auto) 03/16/20 03/17/20 03/17/20 23:56 04:40 04:40 WBC 18.0 H RBC 3.33 L Hgb 9.5 L Hct 28.8 L MCV MCH RDW 16.4 H Plt Count 499 H Lymph % (Auto) Coffee % (Auto) Lymph # (Auto) Coffee # (Auto) Seg Neutrophils % Seg Neuts % (Manual) 82.0 H Lymphocytes % (Manual) 8.0 L Monocytes % (Manual) Basophils % (Manual) Seg Neutrophils # Seg Neutrophils # Man 14.8 H Lymphocytes # (Manual) Monocytes # (Manual) 1.3 H Eosinophils # (Manual) Basophils # (Manual) 0.2 H PT INR D-Dimer ABG pH POC ABG pCO2 POC ABG pO2 ABG pO2 ABG HCO3 ABG O2 Saturation ABG Base Excess ABG Hemoglobin ABG Oxyhemoglobin ABG Potassium ABG Glucose Oxyhemoglobin Carboxyhemoglobin Sodium Potassium Chloride 97.7 L Carbon Dioxide 32 H BUN Creatinine < 0.2 L Glucose 114 H POC Glucose 131 H Calcium Ferritin Total Bilirubin Alkaline Phosphatase Lactate Dehydrogenase Total Creatine Kinase CK-MB (CK-2) Rel Index Troponin T C-Reactive Protein Total Protein Albumin Prealbumin LDL Cholesterol Direct HDL Cholesterol Arterial Blood Glucose Arterial Blood Ionized Calcium Urine WBC (Auto) 03/18/20 03/18/20 03/18/20 00:21 05:21 11:55 WBC RBC Hgb Hct MCV MCH RDW Plt Count Lymph % (Auto) Coffee % (Auto) Lymph # (Auto) Coffee # (Auto) Seg Neutrophils % Seg Neuts % (Manual) Lymphocytes % (Manual) Monocytes % (Manual) Basophils % (Manual) Seg Neutrophils # Seg Neutrophils # Man Lymphocytes # (Manual) Monocytes # (Manual) Eosinophils # (Manual) Basophils # (Manual) PT INR D-Dimer ABG pH POC ABG pCO2 POC ABG pO2 ABG pO2 ABG HCO3 ABG O2 Saturation ABG Base Excess ABG Hemoglobin ABG Oxyhemoglobin ABG Potassium ABG Glucose Oxyhemoglobin Carboxyhemoglobin Sodium Potassium Chloride Carbon Dioxide BUN Creatinine Glucose POC Glucose 124 H 138 H 119 H Calcium Ferritin Total Bilirubin Alkaline Phosphatase Lactate Dehydrogenase Total Creatine Kinase CK-MB (CK-2) Rel Index Troponin T C-Reactive Protein Total Protein Albumin Prealbumin LDL Cholesterol Direct HDL Cholesterol Arterial Blood Glucose Arterial Blood Ionized Calcium Urine WBC (Auto) 03/18/20 03/18/20 03/19/20 17:03 23:58 05:24 WBC RBC Hgb Hct MCV MCH RDW Plt Count Lymph % (Auto) Coffee % (Auto) Lymph # (Auto) Coffee # (Auto) Seg Neutrophils % Seg Neuts % (Manual) Lymphocytes % (Manual) Monocytes % (Manual) Basophils % (Manual) Seg Neutrophils # Seg Neutrophils # Man Lymphocytes # (Manual) Monocytes # (Manual) Eosinophils # (Manual) Basophils # (Manual) PT INR D-Dimer ABG pH POC ABG pCO2 POC ABG pO2 ABG pO2 ABG HCO3 ABG O2 Saturation ABG Base Excess ABG Hemoglobin ABG Oxyhemoglobin ABG Potassium ABG Glucose Oxyhemoglobin Carboxyhemoglobin Sodium Potassium Chloride Carbon Dioxide BUN Creatinine Glucose POC Glucose 128 H 128 H 115 H Calcium Ferritin Total Bilirubin Alkaline Phosphatase Lactate Dehydrogenase Total Creatine Kinase CK-MB (CK-2) Rel Index Troponin T C-Reactive Protein Total Protein Albumin Prealbumin LDL Cholesterol Direct HDL Cholesterol Arterial Blood Glucose Arterial Blood Ionized Calcium Urine WBC (Auto) 03/19/20 03/19/20 03/19/20 08:05 08:05 11:56 WBC 16.8 H RBC 3.36 L Hgb 9.4 L Hct 28.8 L MCV MCH RDW 17.4 H Plt Count 567 H Lymph % (Auto) 7.8 L Coffee % (Auto) Lymph # (Auto) Coffee # (Auto) 1.2 H Seg Neutrophils % 83.5 H Seg Neuts % (Manual) Lymphocytes % (Manual) Monocytes % (Manual) Basophils % (Manual) Seg Neutrophils # 14.1 H Seg Neutrophils # Man Lymphocytes # (Manual) Monocytes # (Manual) Eosinophils # (Manual) Basophils # (Manual) PT INR D-Dimer ABG pH POC ABG pCO2 POC ABG pO2 ABG pO2 ABG HCO3 ABG O2 Saturation ABG Base Excess ABG Hemoglobin ABG Oxyhemoglobin ABG Potassium ABG Glucose Oxyhemoglobin Carboxyhemoglobin Sodium Potassium Chloride Carbon Dioxide 36 H BUN Creatinine < 0.2 L Glucose 135 H POC Glucose 128 H Calcium Ferritin Total Bilirubin Alkaline Phosphatase Lactate Dehydrogenase Total Creatine Kinase CK-MB (CK-2) Rel Index Troponin T C-Reactive Protein Total Protein Albumin Prealbumin LDL Cholesterol Direct HDL Cholesterol Arterial Blood Glucose Arterial Blood Ionized Calcium Urine WBC (Auto) 03/19/20 03/20/20 03/20/20 23:59 05:12 16:52 WBC RBC Hgb Hct MCV MCH RDW Plt Count Lymph % (Auto) Coffee % (Auto) Lymph # (Auto) Coffee # (Auto) Seg Neutrophils % Seg Neuts % (Manual) Lymphocytes % (Manual) Monocytes % (Manual) Basophils % (Manual) Seg Neutrophils # Seg Neutrophils # Man Lymphocytes # (Manual) Monocytes # (Manual) Eosinophils # (Manual) Basophils # (Manual) PT INR D-Dimer ABG pH POC ABG pCO2 POC ABG pO2 ABG pO2 ABG HCO3 ABG O2 Saturation ABG Base Excess ABG Hemoglobin ABG Oxyhemoglobin ABG Potassium ABG Glucose Oxyhemoglobin Carboxyhemoglobin Sodium Potassium Chloride Carbon Dioxide BUN Creatinine Glucose POC Glucose 120 H 131 H 124 H Calcium Ferritin Total Bilirubin Alkaline Phosphatase Lactate Dehydrogenase Total Creatine Kinase CK-MB (CK-2) Rel Index Troponin T C-Reactive Protein Total Protein Albumin Prealbumin LDL Cholesterol Direct HDL Cholesterol Arterial Blood Glucose Arterial Blood Ionized Calcium Urine WBC (Auto) 03/20/20 03/21/20 03/21/20 23:35 04:50 07:35 WBC 15.2 H RBC 3.39 L Hgb 9.4 L Hct 29.4 L MCV MCH RDW 17.6 H Plt Count 518 H Lymph % (Auto) Coffee % (Auto) Lymph # (Auto) Coffee # (Auto) Seg Neutrophils % Seg Neuts % (Manual) 83.0 H Lymphocytes % (Manual) 10.0 L Monocytes % (Manual) Basophils % (Manual) 2.0 H Seg Neutrophils # Seg Neutrophils # Man 12.6 H Lymphocytes # (Manual) Monocytes # (Manual) Eosinophils # (Manual) Basophils # (Manual) 0.3 H PT INR D-Dimer ABG pH POC ABG pCO2 POC ABG pO2 ABG pO2 ABG HCO3 ABG O2 Saturation ABG Base Excess ABG Hemoglobin ABG Oxyhemoglobin ABG Potassium ABG Glucose Oxyhemoglobin Carboxyhemoglobin Sodium Potassium Chloride Carbon Dioxide BUN Creatinine Glucose POC Glucose 125 H 127 H Calcium Ferritin Total Bilirubin Alkaline Phosphatase Lactate Dehydrogenase Total Creatine Kinase CK-MB (CK-2) Rel Index Troponin T C-Reactive Protein Total Protein Albumin Prealbumin LDL Cholesterol Direct HDL Cholesterol Arterial Blood Glucose Arterial Blood Ionized Calcium Urine WBC (Auto) 03/21/20 03/21/20 03/21/20 07:35 11:45 17:22 WBC RBC Hgb Hct MCV MCH RDW Plt Count Lymph % (Auto) Coffee % (Auto) Lymph # (Auto) Coffee # (Auto) Seg Neutrophils % Seg Neuts % (Manual) Lymphocytes % (Manual) Monocytes % (Manual) Basophils % (Manual) Seg Neutrophils # Seg Neutrophils # Man Lymphocytes # (Manual) Monocytes # (Manual) Eosinophils # (Manual) Basophils # (Manual) PT INR D-Dimer ABG pH POC ABG pCO2 POC ABG pO2 ABG pO2 ABG HCO3 ABG O2 Saturation ABG Base Excess ABG Hemoglobin ABG Oxyhemoglobin ABG Potassium ABG Glucose Oxyhemoglobin Carboxyhemoglobin Sodium 136 L Potassium Chloride 97.7 L Carbon Dioxide 32 H BUN Creatinine < 0.2 L Glucose 103 H POC Glucose 126 H 120 H Calcium Ferritin Total Bilirubin Alkaline Phosphatase Lactate Dehydrogenase Total Creatine Kinase CK-MB (CK-2) Rel Index Troponin T C-Reactive Protein Total Protein Albumin Prealbumin LDL Cholesterol Direct HDL Cholesterol Arterial Blood Glucose Arterial Blood Ionized Calcium Urine WBC (Auto) 03/22/20 03/22/20 03/22/20 05:09 06:34 06:34 WBC 17.5 H RBC 3.52 L Hgb 10.0 L Hct 30.7 L MCV MCH RDW 17.5 H Plt Count 499 H Lymph % (Auto) Coffee % (Auto) Lymph # (Auto) Coffee # (Auto) Seg Neutrophils % Seg Neuts % (Manual) 80.0 H Lymphocytes % (Manual) 10.0 L Monocytes % (Manual) Basophils % (Manual) Seg Neutrophils # Seg Neutrophils # Man 14.0 H Lymphocytes # (Manual) Monocytes # (Manual) Eosinophils # (Manual) Basophils # (Manual) PT INR D-Dimer ABG pH POC ABG pCO2 POC ABG pO2 ABG pO2 ABG HCO3 ABG O2 Saturation ABG Base Excess ABG Hemoglobin ABG Oxyhemoglobin ABG Potassium ABG Glucose Oxyhemoglobin Carboxyhemoglobin Sodium Potassium Chloride 96.6 L Carbon Dioxide 38 H BUN Creatinine < 0.2 L Glucose 139 H POC Glucose 125 H Calcium Ferritin Total Bilirubin Alkaline Phosphatase Lactate Dehydrogenase Total Creatine Kinase CK-MB (CK-2) Rel Index Troponin T C-Reactive Protein Total Protein Albumin Prealbumin LDL Cholesterol Direct HDL Cholesterol Arterial Blood Glucose Arterial Blood Ionized Calcium Urine WBC (Auto) 03/22/20 03/22/20 03/22/20 11:45 18:00 23:32 WBC RBC Hgb Hct MCV MCH RDW Plt Count Lymph % (Auto) Coffee % (Auto) Lymph # (Auto) Coffee # (Auto) Seg Neutrophils % Seg Neuts % (Manual) Lymphocytes % (Manual) Monocytes % (Manual) Basophils % (Manual) Seg Neutrophils # Seg Neutrophils # Man Lymphocytes # (Manual) Monocytes # (Manual) Eosinophils # (Manual) Basophils # (Manual) PT INR D-Dimer ABG pH POC ABG pCO2 POC ABG pO2 ABG pO2 ABG HCO3 ABG O2 Saturation ABG Base Excess ABG Hemoglobin ABG Oxyhemoglobin ABG Potassium ABG Glucose Oxyhemoglobin Carboxyhemoglobin Sodium Potassium Chloride Carbon Dioxide BUN Creatinine Glucose POC Glucose 135 H 133 H Calcium Ferritin Total Bilirubin Alkaline Phosphatase Lactate Dehydrogenase Total Creatine Kinase CK-MB (CK-2) Rel Index Troponin T 0.113 H* C-Reactive Protein Total Protein Albumin Prealbumin LDL Cholesterol Direct HDL Cholesterol Arterial Blood Glucose Arterial Blood Ionized Calcium Urine WBC (Auto) 03/23/20 03/23/20 03/23/20 01:47 06:21 07:57 WBC RBC Hgb Hct MCV MCH RDW Plt Count Lymph % (Auto) Coffee % (Auto) Lymph # (Auto) Coffee # (Auto) Seg Neutrophils % Seg Neuts % (Manual) Lymphocytes % (Manual) Monocytes % (Manual) Basophils % (Manual) Seg Neutrophils # Seg Neutrophils # Man Lymphocytes # (Manual) Monocytes # (Manual) Eosinophils # (Manual) Basophils # (Manual) PT INR D-Dimer ABG pH POC ABG pCO2 POC ABG pO2 ABG pO2 ABG HCO3 ABG O2 Saturation ABG Base Excess ABG Hemoglobin ABG Oxyhemoglobin ABG Potassium ABG Glucose Oxyhemoglobin Carboxyhemoglobin Sodium Potassium Chloride Carbon Dioxide BUN Creatinine Glucose POC Glucose 130 H Calcium Ferritin Total Bilirubin Alkaline Phosphatase Lactate Dehydrogenase Total Creatine Kinase CK-MB (CK-2) Rel Index Troponin T 0.143 H* D 0.105 H* D C-Reactive Protein Total Protein Albumin Prealbumin LDL Cholesterol Direct HDL Cholesterol Arterial Blood Glucose Arterial Blood Ionized Calcium Urine WBC (Auto) 03/23/20 03/24/20 03/24/20 12:02 05:33 07:15 WBC 18.0 H RBC Hgb 11.0 L Hct 34.0 L MCV MCH RDW 17.4 H Plt Count 520 H Lymph % (Auto) Coffee % (Auto) Lymph # (Auto) Coffee # (Auto) Seg Neutrophils % Seg Neuts % (Manual) 88.0 H Lymphocytes % (Manual) 7.0 L Monocytes % (Manual) Basophils % (Manual) Seg Neutrophils # Seg Neutrophils # Man 15.8 H Lymphocytes # (Manual) Monocytes # (Manual) Eosinophils # (Manual) Basophils # (Manual) PT INR D-Dimer ABG pH POC ABG pCO2 POC ABG pO2 ABG pO2 ABG HCO3 ABG O2 Saturation ABG Base Excess ABG Hemoglobin ABG Oxyhemoglobin ABG Potassium ABG Glucose Oxyhemoglobin Carboxyhemoglobin Sodium Potassium Chloride Carbon Dioxide BUN Creatinine Glucose POC Glucose 137 H 112 H Calcium Ferritin Total Bilirubin Alkaline Phosphatase Lactate Dehydrogenase Total Creatine Kinase CK-MB (CK-2) Rel Index Troponin T C-Reactive Protein Total Protein Albumin Prealbumin LDL Cholesterol Direct HDL Cholesterol Arterial Blood Glucose Arterial Blood Ionized Calcium Urine WBC (Auto) 03/24/20 03/24/20 03/24/20 07:15 11:22 23:30 WBC RBC Hgb Hct MCV MCH RDW Plt Count Lymph % (Auto) Coffee % (Auto) Lymph # (Auto) Coffee # (Auto) Seg Neutrophils % Seg Neuts % (Manual) Lymphocytes % (Manual) Monocytes % (Manual) Basophils % (Manual) Seg Neutrophils # Seg Neutrophils # Man Lymphocytes # (Manual) Monocytes # (Manual) Eosinophils # (Manual) Basophils # (Manual) PT INR D-Dimer ABG pH POC ABG pCO2 POC ABG pO2 ABG pO2 ABG HCO3 ABG O2 Saturation ABG Base Excess ABG Hemoglobin ABG Oxyhemoglobin ABG Potassium ABG Glucose Oxyhemoglobin Carboxyhemoglobin Sodium Potassium Chloride 96.6 L Carbon Dioxide 38 H BUN Creatinine < 0.2 L Glucose 141 H POC Glucose 130 H 120 H Calcium Ferritin Total Bilirubin Alkaline Phosphatase Lactate Dehydrogenase Total Creatine Kinase CK-MB (CK-2) Rel Index Troponin T C-Reactive Protein Total Protein Albumin Prealbumin LDL Cholesterol Direct HDL Cholesterol Arterial Blood Glucose Arterial Blood Ionized Calcium Urine WBC (Auto) 03/25/20 03/25/20 03/25/20 05:48 17:53 23:18 WBC RBC Hgb Hct MCV MCH RDW Plt Count Lymph % (Auto) Coffee % (Auto) Lymph # (Auto) Coffee # (Auto) Seg Neutrophils % Seg Neuts % (Manual) Lymphocytes % (Manual) Monocytes % (Manual) Basophils % (Manual) Seg Neutrophils # Seg Neutrophils # Man Lymphocytes # (Manual) Monocytes # (Manual) Eosinophils # (Manual) Basophils # (Manual) PT INR D-Dimer ABG pH POC ABG pCO2 POC ABG pO2 ABG pO2 ABG HCO3 ABG O2 Saturation ABG Base Excess ABG Hemoglobin ABG Oxyhemoglobin ABG Potassium ABG Glucose Oxyhemoglobin Carboxyhemoglobin Sodium Potassium Chloride Carbon Dioxide BUN Creatinine Glucose POC Glucose 124 H 109 H 131 H Calcium Ferritin Total Bilirubin Alkaline Phosphatase Lactate Dehydrogenase Total Creatine Kinase CK-MB (CK-2) Rel Index Troponin T C-Reactive Protein Total Protein Albumin Prealbumin LDL Cholesterol Direct HDL Cholesterol Arterial Blood Glucose Arterial Blood Ionized Calcium Urine WBC (Auto) 03/26/20 03/26/20 03/26/20 05:21 08:49 08:49 WBC 19.7 H RBC Hgb 10.7 L Hct 33.5 L MCV MCH 27 L RDW 17.1 H Plt Count 480 H Lymph % (Auto) 5.7 L Coffee % (Auto) Lymph # (Auto) 1.1 L Coffee # (Auto) 1.2 H Seg Neutrophils % 87.7 H Seg Neuts % (Manual) Lymphocytes % (Manual) Monocytes % (Manual) Basophils % (Manual) Seg Neutrophils # 17.2 H Seg Neutrophils # Man Lymphocytes # (Manual) Monocytes # (Manual) Eosinophils # (Manual) Basophils # (Manual) PT INR D-Dimer ABG pH POC ABG pCO2 POC ABG pO2 ABG pO2 ABG HCO3 ABG O2 Saturation ABG Base Excess ABG Hemoglobin ABG Oxyhemoglobin ABG Potassium ABG Glucose Oxyhemoglobin Carboxyhemoglobin Sodium Potassium Chloride 97.2 L Carbon Dioxide 36 H BUN Creatinine < 0.2 L Glucose 127 H POC Glucose 116 H Calcium Ferritin Total Bilirubin Alkaline Phosphatase Lactate Dehydrogenase Total Creatine Kinase CK-MB (CK-2) Rel Index Troponin T C-Reactive Protein Total Protein Albumin Prealbumin LDL Cholesterol Direct HDL Cholesterol Arterial Blood Glucose Arterial Blood Ionized Calcium Urine WBC (Auto) 03/26/20 03/26/20 03/26/20 11:38 18:44 23:06 WBC RBC Hgb Hct MCV MCH RDW Plt Count Lymph % (Auto) Coffee % (Auto) Lymph # (Auto) Coffee # (Auto) Seg Neutrophils % Seg Neuts % (Manual) Lymphocytes % (Manual) Monocytes % (Manual) Basophils % (Manual) Seg Neutrophils # Seg Neutrophils # Man Lymphocytes # (Manual) Monocytes # (Manual) Eosinophils # (Manual) Basophils # (Manual) PT INR D-Dimer ABG pH POC ABG pCO2 POC ABG pO2 ABG pO2 ABG HCO3 ABG O2 Saturation ABG Base Excess ABG Hemoglobin ABG Oxyhemoglobin ABG Potassium ABG Glucose Oxyhemoglobin Carboxyhemoglobin Sodium Potassium Chloride Carbon Dioxide BUN Creatinine Glucose POC Glucose 120 H 111 H 134 H Calcium Ferritin Total Bilirubin Alkaline Phosphatase Lactate Dehydrogenase Total Creatine Kinase CK-MB (CK-2) Rel Index Troponin T C-Reactive Protein Total Protein Albumin Prealbumin LDL Cholesterol Direct HDL Cholesterol Arterial Blood Glucose Arterial Blood Ionized Calcium Urine WBC (Auto) 03/27/20 03/27/20 03/27/20 05:41 05:59 05:59 WBC 18.6 H RBC Hgb 10.1 L Hct 31.4 L MCV MCH RDW 17.2 H Plt Count Lymph % (Auto) 8.0 L Coffee % (Auto) Lymph # (Auto) Coffee # (Auto) 1.2 H Seg Neutrophils % 84.7 H Seg Neuts % (Manual) Lymphocytes % (Manual) Monocytes % (Manual) Basophils % (Manual) Seg Neutrophils # 15.8 H Seg Neutrophils # Man Lymphocytes # (Manual) Monocytes # (Manual) Eosinophils # (Manual) Basophils # (Manual) PT INR D-Dimer ABG pH POC ABG pCO2 POC ABG pO2 ABG pO2 ABG HCO3 ABG O2 Saturation ABG Base Excess ABG Hemoglobin ABG Oxyhemoglobin ABG Potassium ABG Glucose Oxyhemoglobin Carboxyhemoglobin Sodium Potassium Chloride Carbon Dioxide 34 H BUN Creatinine < 0.2 L Glucose 127 H POC Glucose 129 H Calcium Ferritin Total Bilirubin Alkaline Phosphatase Lactate Dehydrogenase Total Creatine Kinase CK-MB (CK-2) Rel Index Troponin T C-Reactive Protein Total Protein Albumin Prealbumin LDL Cholesterol Direct HDL Cholesterol Arterial Blood Glucose Arterial Blood Ionized Calcium Urine WBC (Auto) 03/27/20 03/27/20 03/28/20 17:28 23:22 05:23 WBC RBC Hgb Hct MCV MCH RDW Plt Count Lymph % (Auto) Coffee % (Auto) Lymph # (Auto) Coffee # (Auto) Seg Neutrophils % Seg Neuts % (Manual) Lymphocytes % (Manual) Monocytes % (Manual) Basophils % (Manual) Seg Neutrophils # Seg Neutrophils # Man Lymphocytes # (Manual) Monocytes # (Manual) Eosinophils # (Manual) Basophils # (Manual) PT INR D-Dimer ABG pH POC ABG pCO2 POC ABG pO2 ABG pO2 ABG HCO3 ABG O2 Saturation ABG Base Excess ABG Hemoglobin ABG Oxyhemoglobin ABG Potassium ABG Glucose Oxyhemoglobin Carboxyhemoglobin Sodium Potassium Chloride Carbon Dioxide BUN Creatinine Glucose POC Glucose 108 H 119 H 129 H Calcium Ferritin Total Bilirubin Alkaline Phosphatase Lactate Dehydrogenase Total Creatine Kinase CK-MB (CK-2) Rel Index Troponin T C-Reactive Protein Total Protein Albumin Prealbumin LDL Cholesterol Direct HDL Cholesterol Arterial Blood Glucose Arterial Blood Ionized Calcium Urine WBC (Auto) 03/28/20 03/28/20 03/28/20 10:28 10:28 11:36 WBC 23.6 H RBC 3.62 L Hgb 10.0 L Hct 30.8 L MCV MCH RDW 16.4 H Plt Count Lymph % (Auto) Coffee % (Auto) Lymph # (Auto) Coffee # (Auto) Seg Neutrophils % Seg Neuts % (Manual) 89.0 H Lymphocytes % (Manual) 5.0 L Monocytes % (Manual) Basophils % (Manual) Seg Neutrophils # Seg Neutrophils # Man 21.0 H Lymphocytes # (Manual) Monocytes # (Manual) 1.2 H Eosinophils # (Manual) Basophils # (Manual) 0.2 H PT INR D-Dimer ABG pH POC ABG pCO2 POC ABG pO2 ABG pO2 ABG HCO3 ABG O2 Saturation ABG Base Excess ABG Hemoglobin ABG Oxyhemoglobin ABG Potassium ABG Glucose Oxyhemoglobin Carboxyhemoglobin Sodium 134 L Potassium Chloride 94.2 L Carbon Dioxide 35 H BUN Creatinine < 0.2 L Glucose 134 H POC Glucose Calcium Ferritin Total Bilirubin Alkaline Phosphatase Lactate Dehydrogenase Total Creatine Kinase CK-MB (CK-2) Rel Index Troponin T C-Reactive Protein Total Protein Albumin Prealbumin LDL Cholesterol Direct HDL Cholesterol Arterial Blood Glucose Arterial Blood Ionized Calcium Urine WBC (Auto) 39.0 H 03/28/20 03/28/20 03/28/20 11:51 17:08 17:17 WBC RBC Hgb Hct MCV MCH RDW Plt Count Lymph % (Auto) Coffee % (Auto) Lymph # (Auto) Coffee # (Auto) Seg Neutrophils % Seg Neuts % (Manual) Lymphocytes % (Manual) Monocytes % (Manual) Basophils % (Manual) Seg Neutrophils # Seg Neutrophils # Man Lymphocytes # (Manual) Monocytes # (Manual) Eosinophils # (Manual) Basophils # (Manual) PT INR D-Dimer ABG pH POC ABG pCO2 POC ABG pO2 ABG pO2 ABG HCO3 ABG O2 Saturation ABG Base Excess ABG Hemoglobin ABG Oxyhemoglobin ABG Potassium ABG Glucose Oxyhemoglobin Carboxyhemoglobin Sodium Potassium Chloride Carbon Dioxide BUN Creatinine Glucose POC Glucose 123 H 112 H Calcium Ferritin Total Bilirubin Alkaline Phosphatase Lactate Dehydrogenase Total Creatine Kinase 47 L CK-MB (CK-2) Rel Index 4.6 H Troponin T 0.090 H C-Reactive Protein Total Protein Albumin Prealbumin LDL Cholesterol Direct HDL Cholesterol Arterial Blood Glucose Arterial Blood Ionized Calcium Urine WBC (Auto) 03/28/20 03/29/20 03/29/20 23:22 05:22 10:58 WBC RBC Hgb Hct MCV MCH RDW Plt Count Lymph % (Auto) Coffee % (Auto) Lymph # (Auto) Coffee # (Auto) Seg Neutrophils % Seg Neuts % (Manual) Lymphocytes % (Manual) Monocytes % (Manual) Basophils % (Manual) Seg Neutrophils # Seg Neutrophils # Man Lymphocytes # (Manual) Monocytes # (Manual) Eosinophils # (Manual) Basophils # (Manual) PT INR D-Dimer ABG pH POC ABG pCO2 POC ABG pO2 ABG pO2 ABG HCO3 ABG O2 Saturation ABG Base Excess ABG Hemoglobin ABG Oxyhemoglobin ABG Potassium ABG Glucose Oxyhemoglobin Carboxyhemoglobin Sodium Potassium Chloride Carbon Dioxide BUN Creatinine Glucose POC Glucose 122 H 116 H 133 H Calcium Ferritin Total Bilirubin Alkaline Phosphatase Lactate Dehydrogenase Total Creatine Kinase CK-MB (CK-2) Rel Index Troponin T C-Reactive Protein Total Protein Albumin Prealbumin LDL Cholesterol Direct HDL Cholesterol Arterial Blood Glucose Arterial Blood Ionized Calcium Urine WBC (Auto) 03/29/20 03/29/20 03/30/20 17:18 23:14 04:57 WBC RBC Hgb Hct MCV MCH RDW Plt Count Lymph % (Auto) Coffee % (Auto) Lymph # (Auto) Coffee # (Auto) Seg Neutrophils % Seg Neuts % (Manual) Lymphocytes % (Manual) Monocytes % (Manual) Basophils % (Manual) Seg Neutrophils # Seg Neutrophils # Man Lymphocytes # (Manual) Monocytes # (Manual) Eosinophils # (Manual) Basophils # (Manual) PT INR D-Dimer ABG pH POC ABG pCO2 POC ABG pO2 ABG pO2 ABG HCO3 ABG O2 Saturation ABG Base Excess ABG Hemoglobin ABG Oxyhemoglobin ABG Potassium ABG Glucose Oxyhemoglobin Carboxyhemoglobin Sodium Potassium Chloride Carbon Dioxide BUN Creatinine Glucose POC Glucose 111 H 114 H 130 H Calcium Ferritin Total Bilirubin Alkaline Phosphatase Lactate Dehydrogenase Total Creatine Kinase CK-MB (CK-2) Rel Index Troponin T C-Reactive Protein Total Protein Albumin Prealbumin LDL Cholesterol Direct HDL Cholesterol Arterial Blood Glucose Arterial Blood Ionized Calcium Urine WBC (Auto) 03/30/20 03/30/20 03/30/20 11:38 14:47 14:47 WBC 19.9 H RBC Hgb 10.9 L Hct 34.4 L MCV MCH 27 L RDW 16.5 H Plt Count 441 H Lymph % (Auto) 6.4 L Coffee % (Auto) Lymph # (Auto) Coffee # (Auto) 1.4 H Seg Neutrophils % 86.1 H Seg Neuts % (Manual) Lymphocytes % (Manual) Monocytes % (Manual) Basophils % (Manual) Seg Neutrophils # 17.1 H Seg Neutrophils # Man Lymphocytes # (Manual) Monocytes # (Manual) Eosinophils # (Manual) Basophils # (Manual) PT INR D-Dimer ABG pH POC ABG pCO2 POC ABG pO2 ABG pO2 ABG HCO3 ABG O2 Saturation ABG Base Excess ABG Hemoglobin ABG Oxyhemoglobin ABG Potassium ABG Glucose Oxyhemoglobin Carboxyhemoglobin Sodium 133 L Potassium Chloride 94.6 L Carbon Dioxide 33 H BUN Creatinine < 0.2 L Glucose 194 H POC Glucose 139 H Calcium Ferritin Total Bilirubin Alkaline Phosphatase Lactate Dehydrogenase Total Creatine Kinase CK-MB (CK-2) Rel Index Troponin T C-Reactive Protein Total Protein Albumin 2.8 L Prealbumin LDL Cholesterol Direct HDL Cholesterol Arterial Blood Glucose Arterial Blood Ionized Calcium Urine WBC (Auto) 03/30/20 03/31/20 03/31/20 17:07 05:02 15:21 WBC RBC Hgb Hct MCV MCH RDW Plt Count Lymph % (Auto) Coffee % (Auto) Lymph # (Auto) Coffee # (Auto) Seg Neutrophils % Seg Neuts % (Manual) Lymphocytes % (Manual) Monocytes % (Manual) Basophils % (Manual) Seg Neutrophils # Seg Neutrophils # Man Lymphocytes # (Manual) Monocytes # (Manual) Eosinophils # (Manual) Basophils # (Manual) PT INR D-Dimer ABG pH POC ABG pCO2 POC ABG pO2 ABG pO2 ABG HCO3 ABG O2 Saturation ABG Base Excess ABG Hemoglobin ABG Oxyhemoglobin ABG Potassium ABG Glucose Oxyhemoglobin Carboxyhemoglobin Sodium Potassium Chloride Carbon Dioxide BUN Creatinine Glucose POC Glucose 163 H 108 H 110 H Calcium Ferritin Total Bilirubin Alkaline Phosphatase Lactate Dehydrogenase Total Creatine Kinase CK-MB (CK-2) Rel Index Troponin T C-Reactive Protein Total Protein Albumin Prealbumin LDL Cholesterol Direct HDL Cholesterol Arterial Blood Glucose Arterial Blood Ionized Calcium Urine WBC (Auto) 03/31/20 03/31/20 04/01/20 17:58 23:19 05:09 WBC RBC Hgb Hct MCV MCH RDW Plt Count Lymph % (Auto) Coffee % (Auto) Lymph # (Auto) Coffee # (Auto) Seg Neutrophils % Seg Neuts % (Manual) Lymphocytes % (Manual) Monocytes % (Manual) Basophils % (Manual) Seg Neutrophils # Seg Neutrophils # Man Lymphocytes # (Manual) Monocytes # (Manual) Eosinophils # (Manual) Basophils # (Manual) PT INR D-Dimer ABG pH POC ABG pCO2 POC ABG pO2 ABG pO2 ABG HCO3 ABG O2 Saturation ABG Base Excess ABG Hemoglobin ABG Oxyhemoglobin ABG Potassium ABG Glucose Oxyhemoglobin Carboxyhemoglobin Sodium Potassium Chloride Carbon Dioxide BUN Creatinine Glucose POC Glucose 110 H 131 H 124 H Calcium Ferritin Total Bilirubin Alkaline Phosphatase Lactate Dehydrogenase Total Creatine Kinase CK-MB (CK-2) Rel Index Troponin T C-Reactive Protein Total Protein Albumin Prealbumin LDL Cholesterol Direct HDL Cholesterol Arterial Blood Glucose Arterial Blood Ionized Calcium Urine WBC (Auto) 04/01/20 04/01/20 04/01/20 11:50 17:01 23:21 WBC RBC Hgb Hct MCV MCH RDW Plt Count Lymph % (Auto) Coffee % (Auto) Lymph # (Auto) Coffee # (Auto) Seg Neutrophils % Seg Neuts % (Manual) Lymphocytes % (Manual) Monocytes % (Manual) Basophils % (Manual) Seg Neutrophils # Seg Neutrophils # Man Lymphocytes # (Manual) Monocytes # (Manual) Eosinophils # (Manual) Basophils # (Manual) PT INR D-Dimer ABG pH POC ABG pCO2 POC ABG pO2 ABG pO2 ABG HCO3 ABG O2 Saturation ABG Base Excess ABG Hemoglobin ABG Oxyhemoglobin ABG Potassium ABG Glucose Oxyhemoglobin Carboxyhemoglobin Sodium Potassium Chloride Carbon Dioxide BUN Creatinine Glucose POC Glucose 136 H 115 H 124 H Calcium Ferritin Total Bilirubin Alkaline Phosphatase Lactate Dehydrogenase Total Creatine Kinase CK-MB (CK-2) Rel Index Troponin T C-Reactive Protein Total Protein Albumin Prealbumin LDL Cholesterol Direct HDL Cholesterol Arterial Blood Glucose Arterial Blood Ionized Calcium Urine WBC (Auto) 04/02/20 04/02/20 04/02/20 05:27 11:58 17:58 WBC RBC Hgb Hct MCV MCH RDW Plt Count Lymph % (Auto) Coffee % (Auto) Lymph # (Auto) Coffee # (Auto) Seg Neutrophils % Seg Neuts % (Manual) Lymphocytes % (Manual) Monocytes % (Manual) Basophils % (Manual) Seg Neutrophils # Seg Neutrophils # Man Lymphocytes # (Manual) Monocytes # (Manual) Eosinophils # (Manual) Basophils # (Manual) PT INR D-Dimer ABG pH POC ABG pCO2 POC ABG pO2 ABG pO2 ABG HCO3 ABG O2 Saturation ABG Base Excess ABG Hemoglobin ABG Oxyhemoglobin ABG Potassium ABG Glucose Oxyhemoglobin Carboxyhemoglobin Sodium Potassium Chloride Carbon Dioxide BUN Creatinine Glucose POC Glucose 117 H 133 H 122 H Calcium Ferritin Total Bilirubin Alkaline Phosphatase Lactate Dehydrogenase Total Creatine Kinase CK-MB (CK-2) Rel Index Troponin T C-Reactive Protein Total Protein Albumin Prealbumin LDL Cholesterol Direct HDL Cholesterol Arterial Blood Glucose Arterial Blood Ionized Calcium Urine WBC (Auto) 04/02/20 04/03/20 04/03/20 23:12 05:11 11:11 WBC RBC Hgb Hct MCV MCH RDW Plt Count Lymph % (Auto) Coffee % (Auto) Lymph # (Auto) Coffee # (Auto) Seg Neutrophils % Seg Neuts % (Manual) Lymphocytes % (Manual) Monocytes % (Manual) Basophils % (Manual) Seg Neutrophils # Seg Neutrophils # Man Lymphocytes # (Manual) Monocytes # (Manual) Eosinophils # (Manual) Basophils # (Manual) PT INR D-Dimer ABG pH POC ABG pCO2 POC ABG pO2 ABG pO2 ABG HCO3 ABG O2 Saturation ABG Base Excess ABG Hemoglobin ABG Oxyhemoglobin ABG Potassium ABG Glucose Oxyhemoglobin Carboxyhemoglobin Sodium Potassium Chloride Carbon Dioxide BUN Creatinine Glucose POC Glucose 130 H 139 H 136 H Calcium Ferritin Total Bilirubin Alkaline Phosphatase Lactate Dehydrogenase Total Creatine Kinase CK-MB (CK-2) Rel Index Troponin T C-Reactive Protein Total Protein Albumin Prealbumin LDL Cholesterol Direct HDL Cholesterol Arterial Blood Glucose Arterial Blood Ionized Calcium Urine WBC (Auto) 04/03/20 04/03/20 04/04/20 16:51 23:25 05:29 WBC RBC Hgb Hct MCV MCH RDW Plt Count Lymph % (Auto) Coffee % (Auto) Lymph # (Auto) Coffee # (Auto) Seg Neutrophils % Seg Neuts % (Manual) Lymphocytes % (Manual) Monocytes % (Manual) Basophils % (Manual) Seg Neutrophils # Seg Neutrophils # Man Lymphocytes # (Manual) Monocytes # (Manual) Eosinophils # (Manual) Basophils # (Manual) PT INR D-Dimer ABG pH POC ABG pCO2 POC ABG pO2 ABG pO2 ABG HCO3 ABG O2 Saturation ABG Base Excess ABG Hemoglobin ABG Oxyhemoglobin ABG Potassium ABG Glucose Oxyhemoglobin Carboxyhemoglobin Sodium Potassium Chloride Carbon Dioxide BUN Creatinine Glucose POC Glucose 118 H 111 H 126 H Calcium Ferritin Total Bilirubin Alkaline Phosphatase Lactate Dehydrogenase Total Creatine Kinase CK-MB (CK-2) Rel Index Troponin T C-Reactive Protein Total Protein Albumin Prealbumin LDL Cholesterol Direct HDL Cholesterol Arterial Blood Glucose Arterial Blood Ionized Calcium Urine WBC (Auto) 04/04/20 04/04/20 04/04/20 11:47 17:41 23:05 WBC RBC Hgb Hct MCV MCH RDW Plt Count Lymph % (Auto) Coffee % (Auto) Lymph # (Auto) Coffee # (Auto) Seg Neutrophils % Seg Neuts % (Manual) Lymphocytes % (Manual) Monocytes % (Manual) Basophils % (Manual) Seg Neutrophils # Seg Neutrophils # Man Lymphocytes # (Manual) Monocytes # (Manual) Eosinophils # (Manual) Basophils # (Manual) PT INR D-Dimer ABG pH POC ABG pCO2 POC ABG pO2 ABG pO2 ABG HCO3 ABG O2 Saturation ABG Base Excess ABG Hemoglobin ABG Oxyhemoglobin ABG Potassium ABG Glucose Oxyhemoglobin Carboxyhemoglobin Sodium Potassium Chloride Carbon Dioxide BUN Creatinine Glucose POC Glucose 123 H 120 H 119 H Calcium Ferritin Total Bilirubin Alkaline Phosphatase Lactate Dehydrogenase Total Creatine Kinase CK-MB (CK-2) Rel Index Troponin T C-Reactive Protein Total Protein Albumin Prealbumin LDL Cholesterol Direct HDL Cholesterol Arterial Blood Glucose Arterial Blood Ionized Calcium Urine WBC (Auto) 04/05/20 04/05/20 04/05/20 05:14 12:16 18:48 WBC RBC Hgb Hct MCV MCH RDW Plt Count Lymph % (Auto) Coffee % (Auto) Lymph # (Auto) Coffee # (Auto) Seg Neutrophils % Seg Neuts % (Manual) Lymphocytes % (Manual) Monocytes % (Manual) Basophils % (Manual) Seg Neutrophils # Seg Neutrophils # Man Lymphocytes # (Manual) Monocytes # (Manual) Eosinophils # (Manual) Basophils # (Manual) PT INR D-Dimer ABG pH POC ABG pCO2 POC ABG pO2 ABG pO2 ABG HCO3 ABG O2 Saturation ABG Base Excess ABG Hemoglobin ABG Oxyhemoglobin ABG Potassium ABG Glucose Oxyhemoglobin Carboxyhemoglobin Sodium Potassium Chloride Carbon Dioxide BUN Creatinine Glucose POC Glucose 123 H 148 H 106 H Calcium Ferritin Total Bilirubin Alkaline Phosphatase Lactate Dehydrogenase Total Creatine Kinase CK-MB (CK-2) Rel Index Troponin T C-Reactive Protein Total Protein Albumin Prealbumin LDL Cholesterol Direct HDL Cholesterol Arterial Blood Glucose Arterial Blood Ionized Calcium Urine WBC (Auto) 04/06/20 04/06/20 04/06/20 00:47 03:26 08:24 WBC RBC Hgb Hct MCV MCH RDW Plt Count Lymph % (Auto) Coffee % (Auto) Lymph # (Auto) Coffee # (Auto) Seg Neutrophils % Seg Neuts % (Manual) Lymphocytes % (Manual) Monocytes % (Manual) Basophils % (Manual) Seg Neutrophils # Seg Neutrophils # Man Lymphocytes # (Manual) Monocytes # (Manual) Eosinophils # (Manual) Basophils # (Manual) PT INR D-Dimer ABG pH POC ABG pCO2 POC ABG pO2 ABG pO2 ABG HCO3 ABG O2 Saturation ABG Base Excess ABG Hemoglobin ABG Oxyhemoglobin ABG Potassium ABG Glucose Oxyhemoglobin Carboxyhemoglobin Sodium Potassium Chloride Carbon Dioxide BUN Creatinine Glucose POC Glucose 129 H 134 H 131 H Calcium Ferritin Total Bilirubin Alkaline Phosphatase Lactate Dehydrogenase Total Creatine Kinase CK-MB (CK-2) Rel Index Troponin T C-Reactive Protein Total Protein Albumin Prealbumin LDL Cholesterol Direct HDL Cholesterol Arterial Blood Glucose Arterial Blood Ionized Calcium Urine WBC (Auto) 04/06/20 04/06/20 04/06/20 11:16 16:27 23:01 WBC RBC Hgb Hct MCV MCH RDW Plt Count Lymph % (Auto) Coffee % (Auto) Lymph # (Auto) Coffee # (Auto) Seg Neutrophils % Seg Neuts % (Manual) Lymphocytes % (Manual) Monocytes % (Manual) Basophils % (Manual) Seg Neutrophils # Seg Neutrophils # Man Lymphocytes # (Manual) Monocytes # (Manual) Eosinophils # (Manual) Basophils # (Manual) PT INR D-Dimer ABG pH POC ABG pCO2 POC ABG pO2 ABG pO2 ABG HCO3 ABG O2 Saturation ABG Base Excess ABG Hemoglobin ABG Oxyhemoglobin ABG Potassium ABG Glucose Oxyhemoglobin Carboxyhemoglobin Sodium Potassium Chloride Carbon Dioxide BUN Creatinine Glucose POC Glucose 131 H 107 H 125 H Calcium Ferritin Total Bilirubin Alkaline Phosphatase Lactate Dehydrogenase Total Creatine Kinase CK-MB (CK-2) Rel Index Troponin T C-Reactive Protein Total Protein Albumin Prealbumin LDL Cholesterol Direct HDL Cholesterol Arterial Blood Glucose Arterial Blood Ionized Calcium Urine WBC (Auto) 04/07/20 04/07/20 04/07/20 05:24 12:41 17:40 WBC RBC Hgb Hct MCV MCH RDW Plt Count Lymph % (Auto) Coffee % (Auto) Lymph # (Auto) Coffee # (Auto) Seg Neutrophils % Seg Neuts % (Manual) Lymphocytes % (Manual) Monocytes % (Manual) Basophils % (Manual) Seg Neutrophils # Seg Neutrophils # Man Lymphocytes # (Manual) Monocytes # (Manual) Eosinophils # (Manual) Basophils # (Manual) PT INR D-Dimer ABG pH POC ABG pCO2 POC ABG pO2 ABG pO2 ABG HCO3 ABG O2 Saturation ABG Base Excess ABG Hemoglobin ABG Oxyhemoglobin ABG Potassium ABG Glucose Oxyhemoglobin Carboxyhemoglobin Sodium Potassium Chloride Carbon Dioxide BUN Creatinine Glucose POC Glucose 125 H 145 H 123 H Calcium Ferritin Total Bilirubin Alkaline Phosphatase Lactate Dehydrogenase Total Creatine Kinase CK-MB (CK-2) Rel Index Troponin T C-Reactive Protein Total Protein Albumin Prealbumin LDL Cholesterol Direct HDL Cholesterol Arterial Blood Glucose Arterial Blood Ionized Calcium Urine WBC (Auto) 04/07/20 04/08/20 04/08/20 23:22 05:40 11:29 WBC RBC Hgb Hct MCV MCH RDW Plt Count Lymph % (Auto) Coffee % (Auto) Lymph # (Auto) Coffee # (Auto) Seg Neutrophils % Seg Neuts % (Manual) Lymphocytes % (Manual) Monocytes % (Manual) Basophils % (Manual) Seg Neutrophils # Seg Neutrophils # Man Lymphocytes # (Manual) Monocytes # (Manual) Eosinophils # (Manual) Basophils # (Manual) PT INR D-Dimer ABG pH POC ABG pCO2 POC ABG pO2 ABG pO2 ABG HCO3 ABG O2 Saturation ABG Base Excess ABG Hemoglobin ABG Oxyhemoglobin ABG Potassium ABG Glucose Oxyhemoglobin Carboxyhemoglobin Sodium Potassium Chloride Carbon Dioxide BUN Creatinine Glucose POC Glucose 133 H 125 H 116 H Calcium Ferritin Total Bilirubin Alkaline Phosphatase Lactate Dehydrogenase Total Creatine Kinase CK-MB (CK-2) Rel Index Troponin T C-Reactive Protein Total Protein Albumin Prealbumin LDL Cholesterol Direct HDL Cholesterol Arterial Blood Glucose Arterial Blood Ionized Calcium Urine WBC (Auto) 04/08/20 04/09/20 04/09/20 17:43 05:47 12:22 WBC RBC Hgb Hct MCV MCH RDW Plt Count Lymph % (Auto) Coffee % (Auto) Lymph # (Auto) Coffee # (Auto) Seg Neutrophils % Seg Neuts % (Manual) Lymphocytes % (Manual) Monocytes % (Manual) Basophils % (Manual) Seg Neutrophils # Seg Neutrophils # Man Lymphocytes # (Manual) Monocytes # (Manual) Eosinophils # (Manual) Basophils # (Manual) PT INR D-Dimer ABG pH POC ABG pCO2 POC ABG pO2 ABG pO2 ABG HCO3 ABG O2 Saturation ABG Base Excess ABG Hemoglobin ABG Oxyhemoglobin ABG Potassium ABG Glucose Oxyhemoglobin Carboxyhemoglobin Sodium Potassium Chloride Carbon Dioxide BUN Creatinine Glucose POC Glucose 123 H 108 H 116 H Calcium Ferritin Total Bilirubin Alkaline Phosphatase Lactate Dehydrogenase Total Creatine Kinase CK-MB (CK-2) Rel Index Troponin T C-Reactive Protein Total Protein Albumin Prealbumin LDL Cholesterol Direct HDL Cholesterol Arterial Blood Glucose Arterial Blood Ionized Calcium Urine WBC (Auto) 04/09/20 04/09/20 04/10/20 17:24 23:52 06:10 WBC RBC Hgb Hct MCV MCH RDW Plt Count Lymph % (Auto) Coffee % (Auto) Lymph # (Auto) Coffee # (Auto) Seg Neutrophils % Seg Neuts % (Manual) Lymphocytes % (Manual) Monocytes % (Manual) Basophils % (Manual) Seg Neutrophils # Seg Neutrophils # Man Lymphocytes # (Manual) Monocytes # (Manual) Eosinophils # (Manual) Basophils # (Manual) PT INR D-Dimer ABG pH POC ABG pCO2 POC ABG pO2 ABG pO2 ABG HCO3 ABG O2 Saturation ABG Base Excess ABG Hemoglobin ABG Oxyhemoglobin ABG Potassium ABG Glucose Oxyhemoglobin Carboxyhemoglobin Sodium Potassium Chloride Carbon Dioxide BUN Creatinine Glucose POC Glucose 108 H 126 H 122 H Calcium Ferritin Total Bilirubin Alkaline Phosphatase Lactate Dehydrogenase Total Creatine Kinase CK-MB (CK-2) Rel Index Troponin T C-Reactive Protein Total Protein Albumin Prealbumin LDL Cholesterol Direct HDL Cholesterol Arterial Blood Glucose Arterial Blood Ionized Calcium Urine WBC (Auto) 04/10/20 04/10/20 04/10/20 11:27 18:11 23:24 WBC RBC Hgb Hct MCV MCH RDW Plt Count Lymph % (Auto) Coffee % (Auto) Lymph # (Auto) Coffee # (Auto) Seg Neutrophils % Seg Neuts % (Manual) Lymphocytes % (Manual) Monocytes % (Manual) Basophils % (Manual) Seg Neutrophils # Seg Neutrophils # Man Lymphocytes # (Manual) Monocytes # (Manual) Eosinophils # (Manual) Basophils # (Manual) PT INR D-Dimer ABG pH POC ABG pCO2 POC ABG pO2 ABG pO2 ABG HCO3 ABG O2 Saturation ABG Base Excess ABG Hemoglobin ABG Oxyhemoglobin ABG Potassium ABG Glucose Oxyhemoglobin Carboxyhemoglobin Sodium Potassium Chloride Carbon Dioxide BUN Creatinine Glucose POC Glucose 129 H 125 H 107 H Calcium Ferritin Total Bilirubin Alkaline Phosphatase Lactate Dehydrogenase Total Creatine Kinase CK-MB (CK-2) Rel Index Troponin T C-Reactive Protein Total Protein Albumin Prealbumin LDL Cholesterol Direct HDL Cholesterol Arterial Blood Glucose Arterial Blood Ionized Calcium Urine WBC (Auto) 04/11/20 04/11/20 04/11/20 05:28 11:46 23:49 WBC RBC Hgb Hct MCV MCH RDW Plt Count Lymph % (Auto) Coffee % (Auto) Lymph # (Auto) Coffee # (Auto) Seg Neutrophils % Seg Neuts % (Manual) Lymphocytes % (Manual) Monocytes % (Manual) Basophils % (Manual) Seg Neutrophils # Seg Neutrophils # Man Lymphocytes # (Manual) Monocytes # (Manual) Eosinophils # (Manual) Basophils # (Manual) PT INR D-Dimer ABG pH POC ABG pCO2 POC ABG pO2 ABG pO2 ABG HCO3 ABG O2 Saturation ABG Base Excess ABG Hemoglobin ABG Oxyhemoglobin ABG Potassium ABG Glucose Oxyhemoglobin Carboxyhemoglobin Sodium Potassium Chloride Carbon Dioxide BUN Creatinine Glucose POC Glucose 122 H 122 H 116 H Calcium Ferritin Total Bilirubin Alkaline Phosphatase Lactate Dehydrogenase Total Creatine Kinase CK-MB (CK-2) Rel Index Troponin T C-Reactive Protein Total Protein Albumin Prealbumin LDL Cholesterol Direct HDL Cholesterol Arterial Blood Glucose Arterial Blood Ionized Calcium Urine WBC (Auto) 04/12/20 04/12/20 04/12/20 09:07 09:07 11:39 WBC 13.1 H RBC 3.59 L Hgb 9.5 L Hct 29.8 L MCV 83 L MCH 26 L RDW 16.6 H Plt Count 591 H Lymph % (Auto) Coffee % (Auto) Lymph # (Auto) Coffee # (Auto) Seg Neutrophils % Seg Neuts % (Manual) 86.0 H Lymphocytes % (Manual) 7.0 L Monocytes % (Manual) Basophils % (Manual) Seg Neutrophils # Seg Neutrophils # Man 11.3 H Lymphocytes # (Manual) 0.9 L Monocytes # (Manual) Eosinophils # (Manual) Basophils # (Manual) PT INR D-Dimer ABG pH POC ABG pCO2 POC ABG pO2 ABG pO2 ABG HCO3 ABG O2 Saturation ABG Base Excess ABG Hemoglobin ABG Oxyhemoglobin ABG Potassium ABG Glucose Oxyhemoglobin Carboxyhemoglobin Sodium Potassium Chloride Carbon Dioxide 36 H BUN Creatinine < 0.2 L Glucose 132 H POC Glucose 136 H Calcium Ferritin Total Bilirubin Alkaline Phosphatase Lactate Dehydrogenase Total Creatine Kinase CK-MB (CK-2) Rel Index Troponin T C-Reactive Protein Total Protein Albumin 2.7 L Prealbumin LDL Cholesterol Direct HDL Cholesterol Arterial Blood Glucose Arterial Blood Ionized Calcium Urine WBC (Auto) 04/12/20 04/12/20 04/13/20 18:13 23:07 05:45 WBC RBC Hgb Hct MCV MCH RDW Plt Count Lymph % (Auto) Coffee % (Auto) Lymph # (Auto) Coffee # (Auto) Seg Neutrophils % Seg Neuts % (Manual) Lymphocytes % (Manual) Monocytes % (Manual) Basophils % (Manual) Seg Neutrophils # Seg Neutrophils # Man Lymphocytes # (Manual) Monocytes # (Manual) Eosinophils # (Manual) Basophils # (Manual) PT INR D-Dimer ABG pH POC ABG pCO2 POC ABG pO2 ABG pO2 ABG HCO3 ABG O2 Saturation ABG Base Excess ABG Hemoglobin ABG Oxyhemoglobin ABG Potassium ABG Glucose Oxyhemoglobin Carboxyhemoglobin Sodium Potassium Chloride Carbon Dioxide BUN Creatinine Glucose POC Glucose 107 H 106 H 125 H Calcium Ferritin Total Bilirubin Alkaline Phosphatase Lactate Dehydrogenase Total Creatine Kinase CK-MB (CK-2) Rel Index Troponin T C-Reactive Protein Total Protein Albumin Prealbumin LDL Cholesterol Direct HDL Cholesterol Arterial Blood Glucose Arterial Blood Ionized Calcium Urine WBC (Auto) 04/13/20 04/13/20 04/13/20 11:18 17:56 23:33 WBC RBC Hgb Hct MCV MCH RDW Plt Count Lymph % (Auto) Coffee % (Auto) Lymph # (Auto) Coffee # (Auto) Seg Neutrophils % Seg Neuts % (Manual) Lymphocytes % (Manual) Monocytes % (Manual) Basophils % (Manual) Seg Neutrophils # Seg Neutrophils # Man Lymphocytes # (Manual) Monocytes # (Manual) Eosinophils # (Manual) Basophils # (Manual) PT INR D-Dimer ABG pH POC ABG pCO2 POC ABG pO2 ABG pO2 ABG HCO3 ABG O2 Saturation ABG Base Excess ABG Hemoglobin ABG Oxyhemoglobin ABG Potassium ABG Glucose Oxyhemoglobin Carboxyhemoglobin Sodium Potassium Chloride Carbon Dioxide BUN Creatinine Glucose POC Glucose 133 H 110 H 114 H Calcium Ferritin Total Bilirubin Alkaline Phosphatase Lactate Dehydrogenase Total Creatine Kinase CK-MB (CK-2) Rel Index Troponin T C-Reactive Protein Total Protein Albumin Prealbumin LDL Cholesterol Direct HDL Cholesterol Arterial Blood Glucose Arterial Blood Ionized Calcium Urine WBC (Auto) 04/14/20 04/14/20 04/14/20 05:58 11:45 17:48 WBC RBC Hgb Hct MCV MCH RDW Plt Count Lymph % (Auto) Coffee % (Auto) Lymph # (Auto) Coffee # (Auto) Seg Neutrophils % Seg Neuts % (Manual) Lymphocytes % (Manual) Monocytes % (Manual) Basophils % (Manual) Seg Neutrophils # Seg Neutrophils # Man Lymphocytes # (Manual) Monocytes # (Manual) Eosinophils # (Manual) Basophils # (Manual) PT INR D-Dimer ABG pH POC ABG pCO2 POC ABG pO2 ABG pO2 ABG HCO3 ABG O2 Saturation ABG Base Excess ABG Hemoglobin ABG Oxyhemoglobin ABG Potassium ABG Glucose Oxyhemoglobin Carboxyhemoglobin Sodium Potassium Chloride Carbon Dioxide BUN Creatinine Glucose POC Glucose 115 H 122 H 124 H Calcium Ferritin Total Bilirubin Alkaline Phosphatase Lactate Dehydrogenase Total Creatine Kinase CK-MB (CK-2) Rel Index Troponin T C-Reactive Protein Total Protein Albumin Prealbumin LDL Cholesterol Direct HDL Cholesterol Arterial Blood Glucose Arterial Blood Ionized Calcium Urine WBC (Auto) 04/15/20 04/15/20 04/15/20 00:11 05:38 11:31 WBC RBC Hgb Hct MCV MCH RDW Plt Count Lymph % (Auto) Coffee % (Auto) Lymph # (Auto) Coffee # (Auto) Seg Neutrophils % Seg Neuts % (Manual) Lymphocytes % (Manual) Monocytes % (Manual) Basophils % (Manual) Seg Neutrophils # Seg Neutrophils # Man Lymphocytes # (Manual) Monocytes # (Manual) Eosinophils # (Manual) Basophils # (Manual) PT INR D-Dimer ABG pH POC ABG pCO2 POC ABG pO2 ABG pO2 ABG HCO3 ABG O2 Saturation ABG Base Excess ABG Hemoglobin ABG Oxyhemoglobin ABG Potassium ABG Glucose Oxyhemoglobin Carboxyhemoglobin Sodium Potassium Chloride Carbon Dioxide BUN Creatinine Glucose POC Glucose 120 H 109 H 123 H Calcium Ferritin Total Bilirubin Alkaline Phosphatase Lactate Dehydrogenase Total Creatine Kinase CK-MB (CK-2) Rel Index Troponin T C-Reactive Protein Total Protein Albumin Prealbumin LDL Cholesterol Direct HDL Cholesterol Arterial Blood Glucose Arterial Blood Ionized Calcium Urine WBC (Auto) 04/15/20 04/16/20 04/16/20 17:35 06:00 11:29 WBC RBC Hgb Hct MCV MCH RDW Plt Count Lymph % (Auto) Coffee % (Auto) Lymph # (Auto) Coffee # (Auto) Seg Neutrophils % Seg Neuts % (Manual) Lymphocytes % (Manual) Monocytes % (Manual) Basophils % (Manual) Seg Neutrophils # Seg Neutrophils # Man Lymphocytes # (Manual) Monocytes # (Manual) Eosinophils # (Manual) Basophils # (Manual) PT INR D-Dimer ABG pH POC ABG pCO2 POC ABG pO2 ABG pO2 ABG HCO3 ABG O2 Saturation ABG Base Excess ABG Hemoglobin ABG Oxyhemoglobin ABG Potassium ABG Glucose Oxyhemoglobin Carboxyhemoglobin Sodium Potassium Chloride Carbon Dioxide BUN Creatinine Glucose POC Glucose 111 H 142 H 108 H Calcium Ferritin Total Bilirubin Alkaline Phosphatase Lactate Dehydrogenase Total Creatine Kinase CK-MB (CK-2) Rel Index Troponin T C-Reactive Protein Total Protein Albumin Prealbumin LDL Cholesterol Direct HDL Cholesterol Arterial Blood Glucose Arterial Blood Ionized Calcium Urine WBC (Auto) 04/17/20 04/17/20 04/17/20 05:09 06:53 06:53 WBC 14.2 H RBC Hgb 10.1 L Hct 31.5 L MCV MCH 27 L RDW 17.2 H Plt Count 643 H Lymph % (Auto) Coffee % (Auto) Lymph # (Auto) Coffee # (Auto) Seg Neutrophils % Seg Neuts % (Manual) Lymphocytes % (Manual) Monocytes % (Manual) Basophils % (Manual) Seg Neutrophils # Seg Neutrophils # Man Lymphocytes # (Manual) Monocytes # (Manual) Eosinophils # (Manual) Basophils # (Manual) PT INR D-Dimer ABG pH POC ABG pCO2 POC ABG pO2 ABG pO2 ABG HCO3 ABG O2 Saturation ABG Base Excess ABG Hemoglobin ABG Oxyhemoglobin ABG Potassium ABG Glucose Oxyhemoglobin Carboxyhemoglobin Sodium Potassium Chloride 97.7 L Carbon Dioxide 38 H BUN Creatinine < 0.2 L Glucose 126 H POC Glucose 131 H Calcium Ferritin Total Bilirubin Alkaline Phosphatase Lactate Dehydrogenase Total Creatine Kinase CK-MB (CK-2) Rel Index Troponin T C-Reactive Protein Total Protein Albumin Prealbumin LDL Cholesterol Direct HDL Cholesterol Arterial Blood Glucose Arterial Blood Ionized Calcium Urine WBC (Auto) 04/17/20 04/18/20 04/18/20 11:21 00:23 04:01 WBC 15.3 H RBC Hgb 10.1 L Hct 31.9 L MCV 82 L MCH 26 L RDW 17.2 H Plt Count 665 H Lymph % (Auto) 12.9 L Coffee % (Auto) Lymph # (Auto) Coffee # (Auto) 1.1 H Seg Neutrophils % 78.0 H Seg Neuts % (Manual) Lymphocytes % (Manual) Monocytes % (Manual) Basophils % (Manual) Seg Neutrophils # 11.9 H Seg Neutrophils # Man Lymphocytes # (Manual) Monocytes # (Manual) Eosinophils # (Manual) Basophils # (Manual) PT INR D-Dimer ABG pH POC ABG pCO2 POC ABG pO2 ABG pO2 ABG HCO3 ABG O2 Saturation ABG Base Excess ABG Hemoglobin ABG Oxyhemoglobin ABG Potassium ABG Glucose Oxyhemoglobin Carboxyhemoglobin Sodium Potassium Chloride Carbon Dioxide BUN Creatinine Glucose POC Glucose 140 H 125 H Calcium Ferritin Total Bilirubin Alkaline Phosphatase Lactate Dehydrogenase Total Creatine Kinase CK-MB (CK-2) Rel Index Troponin T C-Reactive Protein Total Protein Albumin Prealbumin LDL Cholesterol Direct HDL Cholesterol Arterial Blood Glucose Arterial Blood Ionized Calcium Urine WBC (Auto) 04/18/20 04/18/20 04/18/20 04:01 11:29 17:30 WBC RBC Hgb Hct MCV MCH RDW Plt Count Lymph % (Auto) Coffee % (Auto) Lymph # (Auto) Coffee # (Auto) Seg Neutrophils % Seg Neuts % (Manual) Lymphocytes % (Manual) Monocytes % (Manual) Basophils % (Manual) Seg Neutrophils # Seg Neutrophils # Man Lymphocytes # (Manual) Monocytes # (Manual) Eosinophils # (Manual) Basophils # (Manual) PT INR D-Dimer ABG pH POC ABG pCO2 POC ABG pO2 ABG pO2 ABG HCO3 ABG O2 Saturation ABG Base Excess ABG Hemoglobin ABG Oxyhemoglobin ABG Potassium ABG Glucose Oxyhemoglobin Carboxyhemoglobin Sodium Potassium Chloride 97.0 L Carbon Dioxide 38 H BUN Creatinine < 0.2 L Glucose 117 H POC Glucose 136 H 107 H Calcium Ferritin Total Bilirubin Alkaline Phosphatase Lactate Dehydrogenase Total Creatine Kinase CK-MB (CK-2) Rel Index Troponin T C-Reactive Protein Total Protein Albumin Prealbumin LDL Cholesterol Direct HDL Cholesterol Arterial Blood Glucose Arterial Blood Ionized Calcium Urine WBC (Auto) 04/18/20 04/19/20 04/19/20 23:19 06:51 06:51 WBC 12.2 H RBC Hgb 9.8 L Hct 31.1 L MCV 82 L MCH 26 L RDW 17.2 H Plt Count 549 H Lymph % (Auto) 6.5 L Coffee % (Auto) Lymph # (Auto) 0.8 L Coffee # (Auto) Seg Neutrophils % 86.7 H Seg Neuts % (Manual) Lymphocytes % (Manual) Monocytes % (Manual) Basophils % (Manual) Seg Neutrophils # 10.6 H Seg Neutrophils # Man Lymphocytes # (Manual) Monocytes # (Manual) Eosinophils # (Manual) Basophils # (Manual) PT INR D-Dimer ABG pH POC ABG pCO2 POC ABG pO2 ABG pO2 ABG HCO3 ABG O2 Saturation ABG Base Excess ABG Hemoglobin ABG Oxyhemoglobin ABG Potassium ABG Glucose Oxyhemoglobin Carboxyhemoglobin Sodium Potassium Chloride 97.8 L Carbon Dioxide 38 H BUN Creatinine < 0.2 L Glucose 123 H POC Glucose 127 H Calcium Ferritin Total Bilirubin Alkaline Phosphatase Lactate Dehydrogenase Total Creatine Kinase CK-MB (CK-2) Rel Index Troponin T C-Reactive Protein Total Protein Albumin Prealbumin LDL Cholesterol Direct HDL Cholesterol Arterial Blood Glucose Arterial Blood Ionized Calcium Urine WBC (Auto) 04/19/20 04/19/20 04/20/20 13:41 18:33 05:56 WBC RBC Hgb Hct MCV MCH RDW Plt Count Lymph % (Auto) Coffee % (Auto) Lymph # (Auto) Coffee # (Auto) Seg Neutrophils % Seg Neuts % (Manual) Lymphocytes % (Manual) Monocytes % (Manual) Basophils % (Manual) Seg Neutrophils # Seg Neutrophils # Man Lymphocytes # (Manual) Monocytes # (Manual) Eosinophils # (Manual) Basophils # (Manual) PT INR D-Dimer ABG pH POC ABG pCO2 POC ABG pO2 ABG pO2 ABG HCO3 ABG O2 Saturation ABG Base Excess ABG Hemoglobin ABG Oxyhemoglobin ABG Potassium ABG Glucose Oxyhemoglobin Carboxyhemoglobin Sodium Potassium Chloride Carbon Dioxide BUN Creatinine Glucose POC Glucose 116 H 124 H 130 H Calcium Ferritin Total Bilirubin Alkaline Phosphatase Lactate Dehydrogenase Total Creatine Kinase CK-MB (CK-2) Rel Index Troponin T C-Reactive Protein Total Protein Albumin Prealbumin LDL Cholesterol Direct HDL Cholesterol Arterial Blood Glucose Arterial Blood Ionized Calcium Urine WBC (Auto) 04/20/20 04/20/20 04/20/20 06:28 06:28 11:46 WBC RBC Hgb 10.2 L Hct 31.5 L MCV 82 L MCH 27 L RDW 17.1 H Plt Count 546 H Lymph % (Auto) 10.0 L Coffee % (Auto) 9.8 H Lymph # (Auto) 1.1 L Coffee # (Auto) 1.1 H Seg Neutrophils % 78.4 H Seg Neuts % (Manual) Lymphocytes % (Manual) Monocytes % (Manual) Basophils % (Manual) Seg Neutrophils # 8.5 H Seg Neutrophils # Man Lymphocytes # (Manual) Monocytes # (Manual) Eosinophils # (Manual) Basophils # (Manual) PT INR D-Dimer ABG pH POC ABG pCO2 POC ABG pO2 ABG pO2 ABG HCO3 ABG O2 Saturation ABG Base Excess ABG Hemoglobin ABG Oxyhemoglobin ABG Potassium ABG Glucose Oxyhemoglobin Carboxyhemoglobin Sodium Potassium Chloride 97.0 L Carbon Dioxide 38 H BUN Creatinine < 0.2 L Glucose 138 H POC Glucose 130 H Calcium Ferritin Total Bilirubin Alkaline Phosphatase Lactate Dehydrogenase Total Creatine Kinase CK-MB (CK-2) Rel Index Troponin T C-Reactive Protein Total Protein Albumin Prealbumin LDL Cholesterol Direct HDL Cholesterol Arterial Blood Glucose Arterial Blood Ionized Calcium Urine WBC (Auto) 04/20/20 04/21/20 04/21/20 23:31 05:55 05:55 WBC RBC Hgb 10.0 L Hct 31.1 L MCV 82 L MCH 26 L RDW 17.0 H Plt Count 535 H Lymph % (Auto) Coffee % (Auto) 9.2 H Lymph # (Auto) 1.1 L Coffee # (Auto) Seg Neutrophils % 75.4 H Seg Neuts % (Manual) Lymphocytes % (Manual) Monocytes % (Manual) Basophils % (Manual) Seg Neutrophils # Seg Neutrophils # Man Lymphocytes # (Manual) Monocytes # (Manual) Eosinophils # (Manual) Basophils # (Manual) PT INR D-Dimer ABG pH POC ABG pCO2 POC ABG pO2 ABG pO2 ABG HCO3 ABG O2 Saturation ABG Base Excess ABG Hemoglobin ABG Oxyhemoglobin ABG Potassium ABG Glucose Oxyhemoglobin Carboxyhemoglobin Sodium Potassium Chloride 95.0 L Carbon Dioxide 34 H BUN Creatinine < 0.2 L Glucose 125 H POC Glucose 116 H Calcium Ferritin Total Bilirubin Alkaline Phosphatase Lactate Dehydrogenase Total Creatine Kinase CK-MB (CK-2) Rel Index Troponin T C-Reactive Protein Total Protein Albumin Prealbumin LDL Cholesterol Direct HDL Cholesterol Arterial Blood Glucose Arterial Blood Ionized Calcium Urine WBC (Auto) 04/22/20 04/22/20 04/22/20 00:01 07:45 07:45 WBC RBC Hgb 10.0 L Hct 30.7 L MCV 81 L MCH 27 L RDW 17.1 H Plt Count 490 H Lymph % (Auto) Coffee % (Auto) Lymph # (Auto) Coffee # (Auto) Seg Neutrophils % Seg Neuts % (Manual) 75.0 H Lymphocytes % (Manual) 11.0 L Monocytes % (Manual) 9.0 H Basophils % (Manual) Seg Neutrophils # Seg Neutrophils # Man Lymphocytes # (Manual) 0.8 L Monocytes # (Manual) Eosinophils # (Manual) Basophils # (Manual) PT INR D-Dimer ABG pH POC ABG pCO2 POC ABG pO2 ABG pO2 ABG HCO3 ABG O2 Saturation ABG Base Excess ABG Hemoglobin ABG Oxyhemoglobin ABG Potassium ABG Glucose Oxyhemoglobin Carboxyhemoglobin Sodium Potassium Chloride 96.3 L Carbon Dioxide 40 H BUN Creatinine < 0.2 L Glucose 109 H POC Glucose 110 H Calcium Ferritin Total Bilirubin Alkaline Phosphatase Lactate Dehydrogenase Total Creatine Kinase CK-MB (CK-2) Rel Index Troponin T C-Reactive Protein Total Protein Albumin Prealbumin LDL Cholesterol Direct HDL Cholesterol Arterial Blood Glucose Arterial Blood Ionized Calcium Urine WBC (Auto) 04/23/20 04/23/20 04/23/20 04:28 04:28 04:28 WBC RBC 3.64 L Hgb 9.7 L Hct 29.4 L MCV 81 L MCH 27 L RDW 17.2 H Plt Count 527 H Lymph % (Auto) Coffee % (Auto) 8.9 H Lymph # (Auto) Coffee # (Auto) Seg Neutrophils % Seg Neuts % (Manual) Lymphocytes % (Manual) Monocytes % (Manual) Basophils % (Manual) Seg Neutrophils # Seg Neutrophils # Man Lymphocytes # (Manual) Monocytes # (Manual) Eosinophils # (Manual) Basophils # (Manual) PT INR D-Dimer ABG pH POC ABG pCO2 POC ABG pO2 ABG pO2 ABG HCO3 ABG O2 Saturation ABG Base Excess ABG Hemoglobin ABG Oxyhemoglobin ABG Potassium ABG Glucose Oxyhemoglobin Carboxyhemoglobin Sodium Potassium Chloride 96.4 L Carbon Dioxide 32 H D BUN Creatinine < 0.2 L Glucose 134 H POC Glucose Calcium Ferritin Total Bilirubin Alkaline Phosphatase Lactate Dehydrogenase Total Creatine Kinase CK-MB (CK-2) Rel Index Troponin T 0.151 H* C-Reactive Protein Total Protein Albumin Prealbumin LDL Cholesterol Direct HDL Cholesterol 29 L Arterial Blood Glucose Arterial Blood Ionized Calcium Urine WBC (Auto) 04/23/20 04/23/20 04/24/20 06:03 23:41 05:28 WBC RBC 3.56 L Hgb 9.5 L Hct 28.9 L MCV 81 L MCH 27 L RDW 17.4 H Plt Count 462 H Lymph % (Auto) Coffee % (Auto) Lymph # (Auto) Coffee # (Auto) Seg Neutrophils % Seg Neuts % (Manual) 80.0 H Lymphocytes % (Manual) Monocytes % (Manual) Basophils % (Manual) Seg Neutrophils # Seg Neutrophils # Man Lymphocytes # (Manual) Monocytes # (Manual) Eosinophils # (Manual) Basophils # (Manual) PT INR D-Dimer ABG pH POC ABG pCO2 POC ABG pO2 ABG pO2 ABG HCO3 ABG O2 Saturation ABG Base Excess ABG Hemoglobin ABG Oxyhemoglobin ABG Potassium ABG Glucose Oxyhemoglobin Carboxyhemoglobin Sodium Potassium Chloride Carbon Dioxide BUN Creatinine Glucose POC Glucose 132 H 117 H Calcium Ferritin Total Bilirubin Alkaline Phosphatase Lactate Dehydrogenase Total Creatine Kinase CK-MB (CK-2) Rel Index Troponin T C-Reactive Protein Total Protein Albumin Prealbumin LDL Cholesterol Direct HDL Cholesterol Arterial Blood Glucose Arterial Blood Ionized Calcium Urine WBC (Auto) 04/24/20 04/24/20 04/24/20 05:28 05:28 05:33 WBC RBC Hgb Hct MCV MCH RDW Plt Count Lymph % (Auto) Coffee % (Auto) Lymph # (Auto) Coffee # (Auto) Seg Neutrophils % Seg Neuts % (Manual) Lymphocytes % (Manual) Monocytes % (Manual) Basophils % (Manual) Seg Neutrophils # Seg Neutrophils # Man Lymphocytes # (Manual) Monocytes # (Manual) Eosinophils # (Manual) Basophils # (Manual) PT INR D-Dimer ABG pH POC ABG pCO2 POC ABG pO2 ABG pO2 ABG HCO3 ABG O2 Saturation ABG Base Excess ABG Hemoglobin ABG Oxyhemoglobin ABG Potassium ABG Glucose Oxyhemoglobin Carboxyhemoglobin Sodium Potassium Chloride 96.1 L Carbon Dioxide 40 H D BUN Creatinine < 0.2 L Glucose 115 H POC Glucose 109 H Calcium Ferritin Total Bilirubin Alkaline Phosphatase Lactate Dehydrogenase Total Creatine Kinase CK-MB (CK-2) Rel Index Troponin T 0.181 H* C-Reactive Protein Total Protein Albumin Prealbumin LDL Cholesterol Direct HDL Cholesterol Arterial Blood Glucose Arterial Blood Ionized Calcium Urine WBC (Auto) 04/24/20 04/24/20 04/25/20 11:17 18:23 00:12 WBC RBC Hgb Hct MCV MCH RDW Plt Count Lymph % (Auto) Coffee % (Auto) Lymph # (Auto) Coffee # (Auto) Seg Neutrophils % Seg Neuts % (Manual) Lymphocytes % (Manual) Monocytes % (Manual) Basophils % (Manual) Seg Neutrophils # Seg Neutrophils # Man Lymphocytes # (Manual) Monocytes # (Manual) Eosinophils # (Manual) Basophils # (Manual) PT INR D-Dimer ABG pH POC ABG pCO2 POC ABG pO2 ABG pO2 ABG HCO3 ABG O2 Saturation ABG Base Excess ABG Hemoglobin ABG Oxyhemoglobin ABG Potassium ABG Glucose Oxyhemoglobin Carboxyhemoglobin Sodium Potassium Chloride Carbon Dioxide BUN Creatinine Glucose POC Glucose 117 H 109 H 113 H Calcium Ferritin Total Bilirubin Alkaline Phosphatase Lactate Dehydrogenase Total Creatine Kinase CK-MB (CK-2) Rel Index Troponin T C-Reactive Protein Total Protein Albumin Prealbumin LDL Cholesterol Direct HDL Cholesterol Arterial Blood Glucose Arterial Blood Ionized Calcium Urine WBC (Auto) 04/25/20 04/25/20 04/25/20 06:34 06:34 11:28 WBC 11.7 H RBC Hgb 10.0 L Hct 31.7 L MCV 82 L MCH 26 L RDW 17.5 H Plt Count 564 H Lymph % (Auto) Coffee % (Auto) Lymph # (Auto) Coffee # (Auto) Seg Neutrophils % Seg Neuts % (Manual) 78.0 H Lymphocytes % (Manual) 10.0 L Monocytes % (Manual) 9.0 H Basophils % (Manual) Seg Neutrophils # Seg Neutrophils # Man 9.1 H Lymphocytes # (Manual) Monocytes # (Manual) 1.1 H Eosinophils # (Manual) Basophils # (Manual) PT INR D-Dimer ABG pH POC ABG pCO2 POC ABG pO2 ABG pO2 ABG HCO3 ABG O2 Saturation ABG Base Excess ABG Hemoglobin ABG Oxyhemoglobin ABG Potassium ABG Glucose Oxyhemoglobin Carboxyhemoglobin Sodium Potassium Chloride Carbon Dioxide 39 H BUN Creatinine < 0.2 L Glucose 103 H POC Glucose 112 H Calcium Ferritin Total Bilirubin Alkaline Phosphatase Lactate Dehydrogenase Total Creatine Kinase CK-MB (CK-2) Rel Index Troponin T C-Reactive Protein Total Protein Albumin Prealbumin LDL Cholesterol Direct HDL Cholesterol Arterial Blood Glucose Arterial Blood Ionized Calcium Urine WBC (Auto) 04/27/20 04/27/20 04/27/20 11:48 17:08 23:31 WBC RBC Hgb Hct MCV MCH RDW Plt Count Lymph % (Auto) Coffee % (Auto) Lymph # (Auto) Coffee # (Auto) Seg Neutrophils % Seg Neuts % (Manual) Lymphocytes % (Manual) Monocytes % (Manual) Basophils % (Manual) Seg Neutrophils # Seg Neutrophils # Man Lymphocytes # (Manual) Monocytes # (Manual) Eosinophils # (Manual) Basophils # (Manual) PT INR D-Dimer ABG pH POC ABG pCO2 POC ABG pO2 ABG pO2 ABG HCO3 ABG O2 Saturation ABG Base Excess ABG Hemoglobin ABG Oxyhemoglobin ABG Potassium ABG Glucose Oxyhemoglobin Carboxyhemoglobin Sodium Potassium Chloride Carbon Dioxide BUN Creatinine Glucose POC Glucose 124 H 118 H 122 H Calcium Ferritin Total Bilirubin Alkaline Phosphatase Lactate Dehydrogenase Total Creatine Kinase CK-MB (CK-2) Rel Index Troponin T C-Reactive Protein Total Protein Albumin Prealbumin LDL Cholesterol Direct HDL Cholesterol Arterial Blood Glucose Arterial Blood Ionized Calcium Urine WBC (Auto) 04/28/20 04/29/20 04/29/20 05:42 00:14 05:30 WBC RBC Hgb Hct MCV MCH RDW Plt Count Lymph % (Auto) Coffee % (Auto) Lymph # (Auto) Coffee # (Auto) Seg Neutrophils % Seg Neuts % (Manual) Lymphocytes % (Manual) Monocytes % (Manual) Basophils % (Manual) Seg Neutrophils # Seg Neutrophils # Man Lymphocytes # (Manual) Monocytes # (Manual) Eosinophils # (Manual) Basophils # (Manual) PT INR D-Dimer ABG pH POC ABG pCO2 POC ABG pO2 ABG pO2 ABG HCO3 ABG O2 Saturation ABG Base Excess ABG Hemoglobin ABG Oxyhemoglobin ABG Potassium ABG Glucose Oxyhemoglobin Carboxyhemoglobin Sodium Potassium Chloride Carbon Dioxide BUN Creatinine Glucose POC Glucose 122 H 115 H 123 H Calcium Ferritin Total Bilirubin Alkaline Phosphatase Lactate Dehydrogenase Total Creatine Kinase CK-MB (CK-2) Rel Index Troponin T C-Reactive Protein Total Protein Albumin Prealbumin LDL Cholesterol Direct HDL Cholesterol Arterial Blood Glucose Arterial Blood Ionized Calcium Urine WBC (Auto) 04/30/20 05/01/20 05/01/20 00:29 05:39 12:30 WBC RBC Hgb Hct MCV MCH RDW Plt Count Lymph % (Auto) Coffee % (Auto) Lymph # (Auto) Coffee # (Auto) Seg Neutrophils % Seg Neuts % (Manual) Lymphocytes % (Manual) Monocytes % (Manual) Basophils % (Manual) Seg Neutrophils # Seg Neutrophils # Man Lymphocytes # (Manual) Monocytes # (Manual) Eosinophils # (Manual) Basophils # (Manual) PT INR D-Dimer ABG pH POC ABG pCO2 POC ABG pO2 ABG pO2 ABG HCO3 ABG O2 Saturation ABG Base Excess ABG Hemoglobin ABG Oxyhemoglobin ABG Potassium ABG Glucose Oxyhemoglobin Carboxyhemoglobin Sodium Potassium Chloride Carbon Dioxide BUN Creatinine Glucose POC Glucose 106 H 109 H 108 H Calcium Ferritin Total Bilirubin Alkaline Phosphatase Lactate Dehydrogenase Total Creatine Kinase CK-MB (CK-2) Rel Index Troponin T C-Reactive Protein Total Protein Albumin Prealbumin LDL Cholesterol Direct HDL Cholesterol Arterial Blood Glucose Arterial Blood Ionized Calcium Urine WBC (Auto) 05/01/20 05/03/20 05/03/20 23:35 05:09 11:36 WBC RBC Hgb Hct MCV MCH RDW Plt Count Lymph % (Auto) Coffee % (Auto) Lymph # (Auto) Coffee # (Auto) Seg Neutrophils % Seg Neuts % (Manual) Lymphocytes % (Manual) Monocytes % (Manual) Basophils % (Manual) Seg Neutrophils # Seg Neutrophils # Man Lymphocytes # (Manual) Monocytes # (Manual) Eosinophils # (Manual) Basophils # (Manual) PT INR D-Dimer ABG pH POC ABG pCO2 POC ABG pO2 ABG pO2 ABG HCO3 ABG O2 Saturation ABG Base Excess ABG Hemoglobin ABG Oxyhemoglobin ABG Potassium ABG Glucose Oxyhemoglobin Carboxyhemoglobin Sodium Potassium Chloride Carbon Dioxide BUN Creatinine Glucose POC Glucose 116 H 117 H 116 H Calcium Ferritin Total Bilirubin Alkaline Phosphatase Lactate Dehydrogenase Total Creatine Kinase CK-MB (CK-2) Rel Index Troponin T C-Reactive Protein Total Protein Albumin Prealbumin LDL Cholesterol Direct HDL Cholesterol Arterial Blood Glucose Arterial Blood Ionized Calcium Urine WBC (Auto) 05/03/20 05/03/20 05/03/20 14:06 14:06 23:39 WBC 12.5 H RBC Hgb 10.0 L Hct 31.2 L MCV 80 L MCH 26 L RDW 17.6 H Plt Count 488 H Lymph % (Auto) Coffee % (Auto) Lymph # (Auto) Coffee # (Auto) Seg Neutrophils % Seg Neuts % (Manual) Lymphocytes % (Manual) Monocytes % (Manual) Basophils % (Manual) Seg Neutrophils # Seg Neutrophils # Man Lymphocytes # (Manual) Monocytes # (Manual) Eosinophils # (Manual) Basophils # (Manual) PT INR D-Dimer ABG pH POC ABG pCO2 POC ABG pO2 ABG pO2 ABG HCO3 ABG O2 Saturation ABG Base Excess ABG Hemoglobin ABG Oxyhemoglobin ABG Potassium ABG Glucose Oxyhemoglobin Carboxyhemoglobin Sodium Potassium Chloride 95.4 L Carbon Dioxide 40 H BUN Creatinine < 0.2 L Glucose 121 H POC Glucose 107 H Calcium Ferritin Total Bilirubin Alkaline Phosphatase Lactate Dehydrogenase Total Creatine Kinase CK-MB (CK-2) Rel Index Troponin T C-Reactive Protein Total Protein Albumin Prealbumin LDL Cholesterol Direct HDL Cholesterol Arterial Blood Glucose Arterial Blood Ionized Calcium Urine WBC (Auto) 05/04/20 05/04/20 05/04/20 11:31 16:57 23:18 WBC RBC Hgb Hct MCV MCH RDW Plt Count Lymph % (Auto) Coffee % (Auto) Lymph # (Auto) Coffee # (Auto) Seg Neutrophils % Seg Neuts % (Manual) Lymphocytes % (Manual) Monocytes % (Manual) Basophils % (Manual) Seg Neutrophils # Seg Neutrophils # Man Lymphocytes # (Manual) Monocytes # (Manual) Eosinophils # (Manual) Basophils # (Manual) PT INR D-Dimer ABG pH POC ABG pCO2 POC ABG pO2 ABG pO2 ABG HCO3 ABG O2 Saturation ABG Base Excess ABG Hemoglobin ABG Oxyhemoglobin ABG Potassium ABG Glucose Oxyhemoglobin Carboxyhemoglobin Sodium Potassium Chloride Carbon Dioxide BUN Creatinine Glucose POC Glucose 113 H 126 H 126 H Calcium Ferritin Total Bilirubin Alkaline Phosphatase Lactate Dehydrogenase Total Creatine Kinase CK-MB (CK-2) Rel Index Troponin T C-Reactive Protein Total Protein Albumin Prealbumin LDL Cholesterol Direct HDL Cholesterol Arterial Blood Glucose Arterial Blood Ionized Calcium Urine WBC (Auto) 05/05/20 05/05/20 05/05/20 05:32 11:11 23:57 WBC RBC Hgb Hct MCV MCH RDW Plt Count Lymph % (Auto) Coffee % (Auto) Lymph # (Auto) Coffee # (Auto) Seg Neutrophils % Seg Neuts % (Manual) Lymphocytes % (Manual) Monocytes % (Manual) Basophils % (Manual) Seg Neutrophils # Seg Neutrophils # Man Lymphocytes # (Manual) Monocytes # (Manual) Eosinophils # (Manual) Basophils # (Manual) PT INR D-Dimer ABG pH POC ABG pCO2 POC ABG pO2 ABG pO2 ABG HCO3 ABG O2 Saturation ABG Base Excess ABG Hemoglobin ABG Oxyhemoglobin ABG Potassium ABG Glucose Oxyhemoglobin Carboxyhemoglobin Sodium Potassium Chloride Carbon Dioxide BUN Creatinine Glucose POC Glucose 109 H 124 H 119 H Calcium Ferritin Total Bilirubin Alkaline Phosphatase Lactate Dehydrogenase Total Creatine Kinase CK-MB (CK-2) Rel Index Troponin T C-Reactive Protein Total Protein Albumin Prealbumin LDL Cholesterol Direct HDL Cholesterol Arterial Blood Glucose Arterial Blood Ionized Calcium Urine WBC (Auto) 05/06/20 05/06/20 05/07/20 05:34 23:08 04:43 WBC RBC Hgb 10.1 L Hct 31.9 L MCV 81 L MCH 25 L RDW 17.6 H Plt Count 506 H Lymph % (Auto) Coffee % (Auto) 8.6 H Lymph # (Auto) Coffee # (Auto) 0.9 H Seg Neutrophils % Seg Neuts % (Manual) Lymphocytes % (Manual) Monocytes % (Manual) Basophils % (Manual) Seg Neutrophils # Seg Neutrophils # Man Lymphocytes # (Manual) Monocytes # (Manual) Eosinophils # (Manual) Basophils # (Manual) PT INR D-Dimer ABG pH POC ABG pCO2 POC ABG pO2 ABG pO2 ABG HCO3 ABG O2 Saturation ABG Base Excess ABG Hemoglobin ABG Oxyhemoglobin ABG Potassium ABG Glucose Oxyhemoglobin Carboxyhemoglobin Sodium Potassium Chloride Carbon Dioxide BUN Creatinine Glucose POC Glucose 121 H 107 H Calcium Ferritin Total Bilirubin Alkaline Phosphatase Lactate Dehydrogenase Total Creatine Kinase CK-MB (CK-2) Rel Index Troponin T C-Reactive Protein Total Protein Albumin Prealbumin LDL Cholesterol Direct HDL Cholesterol Arterial Blood Glucose Arterial Blood Ionized Calcium Urine WBC (Auto) 05/07/20 05/07/20 05/07/20 06:18 17:13 23:29 WBC RBC Hgb Hct MCV MCH RDW Plt Count Lymph % (Auto) Coffee % (Auto) Lymph # (Auto) Coffee # (Auto) Seg Neutrophils % Seg Neuts % (Manual) Lymphocytes % (Manual) Monocytes % (Manual) Basophils % (Manual) Seg Neutrophils # Seg Neutrophils # Man Lymphocytes # (Manual) Monocytes # (Manual) Eosinophils # (Manual) Basophils # (Manual) PT INR D-Dimer ABG pH POC ABG pCO2 POC ABG pO2 ABG pO2 ABG HCO3 ABG O2 Saturation ABG Base Excess ABG Hemoglobin ABG Oxyhemoglobin ABG Potassium ABG Glucose Oxyhemoglobin Carboxyhemoglobin Sodium Potassium Chloride Carbon Dioxide BUN Creatinine Glucose POC Glucose 121 H 122 H 114 H Calcium Ferritin Total Bilirubin Alkaline Phosphatase Lactate Dehydrogenase Total Creatine Kinase CK-MB (CK-2) Rel Index Troponin T C-Reactive Protein Total Protein Albumin Prealbumin LDL Cholesterol Direct HDL Cholesterol Arterial Blood Glucose Arterial Blood Ionized Calcium Urine WBC (Auto) 05/08/20 05/08/20 05/08/20 05:20 11:57 23:42 WBC RBC Hgb Hct MCV MCH RDW Plt Count Lymph % (Auto) Coffee % (Auto) Lymph # (Auto) Coffee # (Auto) Seg Neutrophils % Seg Neuts % (Manual) Lymphocytes % (Manual) Monocytes % (Manual) Basophils % (Manual) Seg Neutrophils # Seg Neutrophils # Man Lymphocytes # (Manual) Monocytes # (Manual) Eosinophils # (Manual) Basophils # (Manual) PT INR D-Dimer ABG pH POC ABG pCO2 POC ABG pO2 ABG pO2 ABG HCO3 ABG O2 Saturation ABG Base Excess ABG Hemoglobin ABG Oxyhemoglobin ABG Potassium ABG Glucose Oxyhemoglobin Carboxyhemoglobin Sodium Potassium Chloride Carbon Dioxide BUN Creatinine Glucose POC Glucose 121 H 113 H 135 H Calcium Ferritin Total Bilirubin Alkaline Phosphatase Lactate Dehydrogenase Total Creatine Kinase CK-MB (CK-2) Rel Index Troponin T C-Reactive Protein Total Protein Albumin Prealbumin LDL Cholesterol Direct HDL Cholesterol Arterial Blood Glucose Arterial Blood Ionized Calcium Urine WBC (Auto) 05/09/20 05/09/20 05/09/20 05:31 11:11 16:06 WBC RBC Hgb Hct MCV MCH RDW Plt Count Lymph % (Auto) Coffee % (Auto) Lymph # (Auto) Coffee # (Auto) Seg Neutrophils % Seg Neuts % (Manual) Lymphocytes % (Manual) Monocytes % (Manual) Basophils % (Manual) Seg Neutrophils # Seg Neutrophils # Man Lymphocytes # (Manual) Monocytes # (Manual) Eosinophils # (Manual) Basophils # (Manual) PT INR D-Dimer ABG pH POC ABG pCO2 POC ABG pO2 ABG pO2 ABG HCO3 ABG O2 Saturation ABG Base Excess ABG Hemoglobin ABG Oxyhemoglobin ABG Potassium ABG Glucose Oxyhemoglobin Carboxyhemoglobin Sodium 136 L Potassium Chloride 97.0 L Carbon Dioxide 34 H BUN Creatinine < 0.2 L Glucose 107 H POC Glucose 66 L 127 H Calcium Ferritin Total Bilirubin Alkaline Phosphatase Lactate Dehydrogenase Total Creatine Kinase CK-MB (CK-2) Rel Index Troponin T C-Reactive Protein Total Protein Albumin Prealbumin LDL Cholesterol Direct HDL Cholesterol Arterial Blood Glucose Arterial Blood Ionized Calcium Urine WBC (Auto) 05/09/20 05/10/20 05/10/20 23:19 04:59 11:28 WBC RBC Hgb Hct MCV MCH RDW Plt Count Lymph % (Auto) Coffee % (Auto) Lymph # (Auto) Coffee # (Auto) Seg Neutrophils % Seg Neuts % (Manual) Lymphocytes % (Manual) Monocytes % (Manual) Basophils % (Manual) Seg Neutrophils # Seg Neutrophils # Man Lymphocytes # (Manual) Monocytes # (Manual) Eosinophils # (Manual) Basophils # (Manual) PT INR D-Dimer ABG pH POC ABG pCO2 POC ABG pO2 ABG pO2 ABG HCO3 ABG O2 Saturation ABG Base Excess ABG Hemoglobin ABG Oxyhemoglobin ABG Potassium ABG Glucose Oxyhemoglobin Carboxyhemoglobin Sodium Potassium Chloride Carbon Dioxide BUN Creatinine Glucose POC Glucose 108 H 126 H 124 H Calcium Ferritin Total Bilirubin Alkaline Phosphatase Lactate Dehydrogenase Total Creatine Kinase CK-MB (CK-2) Rel Index Troponin T C-Reactive Protein Total Protein Albumin Prealbumin LDL Cholesterol Direct HDL Cholesterol Arterial Blood Glucose Arterial Blood Ionized Calcium Urine WBC (Auto) 05/10/20 05/11/20 05/11/20 23:56 06:13 11:44 WBC RBC Hgb Hct MCV MCH RDW Plt Count Lymph % (Auto) Coffee % (Auto) Lymph # (Auto) Coffee # (Auto) Seg Neutrophils % Seg Neuts % (Manual) Lymphocytes % (Manual) Monocytes % (Manual) Basophils % (Manual) Seg Neutrophils # Seg Neutrophils # Man Lymphocytes # (Manual) Monocytes # (Manual) Eosinophils # (Manual) Basophils # (Manual) PT INR D-Dimer ABG pH POC ABG pCO2 POC ABG pO2 ABG pO2 ABG HCO3 ABG O2 Saturation ABG Base Excess ABG Hemoglobin ABG Oxyhemoglobin ABG Potassium ABG Glucose Oxyhemoglobin Carboxyhemoglobin Sodium Potassium Chloride Carbon Dioxide BUN Creatinine Glucose POC Glucose 113 H 124 H 125 H Calcium Ferritin Total Bilirubin Alkaline Phosphatase Lactate Dehydrogenase Total Creatine Kinase CK-MB (CK-2) Rel Index Troponin T C-Reactive Protein Total Protein Albumin Prealbumin LDL Cholesterol Direct HDL Cholesterol Arterial Blood Glucose Arterial Blood Ionized Calcium Urine WBC (Auto) 05/12/20 05/12/20 05/12/20 06:04 12:17 17:23 WBC RBC Hgb Hct MCV MCH RDW Plt Count Lymph % (Auto) Coffee % (Auto) Lymph # (Auto) Coffee # (Auto) Seg Neutrophils % Seg Neuts % (Manual) Lymphocytes % (Manual) Monocytes % (Manual) Basophils % (Manual) Seg Neutrophils # Seg Neutrophils # Man Lymphocytes # (Manual) Monocytes # (Manual) Eosinophils # (Manual) Basophils # (Manual) PT INR D-Dimer ABG pH POC ABG pCO2 POC ABG pO2 ABG pO2 ABG HCO3 ABG O2 Saturation ABG Base Excess ABG Hemoglobin ABG Oxyhemoglobin ABG Potassium ABG Glucose Oxyhemoglobin Carboxyhemoglobin Sodium Potassium Chloride Carbon Dioxide BUN Creatinine Glucose POC Glucose 135 H 136 H 133 H Calcium Ferritin Total Bilirubin Alkaline Phosphatase Lactate Dehydrogenase Total Creatine Kinase CK-MB (CK-2) Rel Index Troponin T C-Reactive Protein Total Protein Albumin Prealbumin LDL Cholesterol Direct HDL Cholesterol Arterial Blood Glucose Arterial Blood Ionized Calcium Urine WBC (Auto) 05/12/20 05/13/20 05/13/20 23:34 05:36 11:25 WBC RBC Hgb Hct MCV MCH RDW Plt Count Lymph % (Auto) Coffee % (Auto) Lymph # (Auto) Coffee # (Auto) Seg Neutrophils % Seg Neuts % (Manual) Lymphocytes % (Manual) Monocytes % (Manual) Basophils % (Manual) Seg Neutrophils # Seg Neutrophils # Man Lymphocytes # (Manual) Monocytes # (Manual) Eosinophils # (Manual) Basophils # (Manual) PT INR D-Dimer ABG pH POC ABG pCO2 POC ABG pO2 ABG pO2 ABG HCO3 ABG O2 Saturation ABG Base Excess ABG Hemoglobin ABG Oxyhemoglobin ABG Potassium ABG Glucose Oxyhemoglobin Carboxyhemoglobin Sodium Potassium Chloride Carbon Dioxide BUN Creatinine Glucose POC Glucose 141 H 131 H 148 H Calcium Ferritin Total Bilirubin Alkaline Phosphatase Lactate Dehydrogenase Total Creatine Kinase CK-MB (CK-2) Rel Index Troponin T C-Reactive Protein Total Protein Albumin Prealbumin LDL Cholesterol Direct HDL Cholesterol Arterial Blood Glucose Arterial Blood Ionized Calcium Urine WBC (Auto) 05/13/20 05/14/20 05/14/20 16:40 00:11 05:03 WBC RBC Hgb Hct MCV MCH RDW Plt Count Lymph % (Auto) Coffee % (Auto) Lymph # (Auto) Coffee # (Auto) Seg Neutrophils % Seg Neuts % (Manual) Lymphocytes % (Manual) Monocytes % (Manual) Basophils % (Manual) Seg Neutrophils # Seg Neutrophils # Man Lymphocytes # (Manual) Monocytes # (Manual) Eosinophils # (Manual) Basophils # (Manual) PT INR D-Dimer ABG pH POC ABG pCO2 POC ABG pO2 ABG pO2 ABG HCO3 ABG O2 Saturation ABG Base Excess ABG Hemoglobin ABG Oxyhemoglobin ABG Potassium ABG Glucose Oxyhemoglobin Carboxyhemoglobin Sodium Potassium Chloride Carbon Dioxide BUN Creatinine Glucose POC Glucose 118 H 128 H 129 H Calcium Ferritin Total Bilirubin Alkaline Phosphatase Lactate Dehydrogenase Total Creatine Kinase CK-MB (CK-2) Rel Index Troponin T C-Reactive Protein Total Protein Albumin Prealbumin LDL Cholesterol Direct HDL Cholesterol Arterial Blood Glucose Arterial Blood Ionized Calcium Urine WBC (Auto) 05/14/20 05/15/20 05/16/20 11:38 23:46 05:20 WBC RBC Hgb Hct MCV MCH RDW Plt Count Lymph % (Auto) Coffee % (Auto) Lymph # (Auto) Coffee # (Auto) Seg Neutrophils % Seg Neuts % (Manual) Lymphocytes % (Manual) Monocytes % (Manual) Basophils % (Manual) Seg Neutrophils # Seg Neutrophils # Man Lymphocytes # (Manual) Monocytes # (Manual) Eosinophils # (Manual) Basophils # (Manual) PT INR D-Dimer ABG pH POC ABG pCO2 POC ABG pO2 ABG pO2 ABG HCO3 ABG O2 Saturation ABG Base Excess ABG Hemoglobin ABG Oxyhemoglobin ABG Potassium ABG Glucose Oxyhemoglobin Carboxyhemoglobin Sodium Potassium Chloride Carbon Dioxide BUN Creatinine Glucose POC Glucose 134 H 107 H 122 H Calcium Ferritin Total Bilirubin Alkaline Phosphatase Lactate Dehydrogenase Total Creatine Kinase CK-MB (CK-2) Rel Index Troponin T C-Reactive Protein Total Protein Albumin Prealbumin LDL Cholesterol Direct HDL Cholesterol Arterial Blood Glucose Arterial Blood Ionized Calcium Urine WBC (Auto) 05/16/20 05/16/20 05/18/20 11:57 23:51 11:18 WBC RBC Hgb Hct MCV MCH RDW Plt Count Lymph % (Auto) Coffee % (Auto) Lymph # (Auto) Coffee # (Auto) Seg Neutrophils % Seg Neuts % (Manual) Lymphocytes % (Manual) Monocytes % (Manual) Basophils % (Manual) Seg Neutrophils # Seg Neutrophils # Man Lymphocytes # (Manual) Monocytes # (Manual) Eosinophils # (Manual) Basophils # (Manual) PT INR D-Dimer ABG pH POC ABG pCO2 POC ABG pO2 ABG pO2 ABG HCO3 ABG O2 Saturation ABG Base Excess ABG Hemoglobin ABG Oxyhemoglobin ABG Potassium ABG Glucose Oxyhemoglobin Carboxyhemoglobin Sodium Potassium Chloride Carbon Dioxide BUN Creatinine Glucose POC Glucose 108 H 111 H 115 H Calcium Ferritin Total Bilirubin Alkaline Phosphatase Lactate Dehydrogenase Total Creatine Kinase CK-MB (CK-2) Rel Index Troponin T C-Reactive Protein Total Protein Albumin Prealbumin LDL Cholesterol Direct HDL Cholesterol Arterial Blood Glucose Arterial Blood Ionized Calcium Urine WBC (Auto) 05/18/20 05/18/20 05/19/20 16:18 23:38 05:07 WBC RBC Hgb Hct MCV MCH RDW Plt Count Lymph % (Auto) Coffee % (Auto) Lymph # (Auto) Coffee # (Auto) Seg Neutrophils % Seg Neuts % (Manual) Lymphocytes % (Manual) Monocytes % (Manual) Basophils % (Manual) Seg Neutrophils # Seg Neutrophils # Man Lymphocytes # (Manual) Monocytes # (Manual) Eosinophils # (Manual) Basophils # (Manual) PT INR D-Dimer ABG pH POC ABG pCO2 POC ABG pO2 ABG pO2 ABG HCO3 ABG O2 Saturation ABG Base Excess ABG Hemoglobin ABG Oxyhemoglobin ABG Potassium ABG Glucose Oxyhemoglobin Carboxyhemoglobin Sodium Potassium Chloride Carbon Dioxide BUN Creatinine Glucose POC Glucose 110 H 128 H 121 H Calcium Ferritin Total Bilirubin Alkaline Phosphatase Lactate Dehydrogenase Total Creatine Kinase CK-MB (CK-2) Rel Index Troponin T C-Reactive Protein Total Protein Albumin Prealbumin LDL Cholesterol Direct HDL Cholesterol Arterial Blood Glucose Arterial Blood Ionized Calcium Urine WBC (Auto) 05/19/20 11:36 WBC RBC Hgb Hct MCV MCH RDW Plt Count Lymph % (Auto) Coffee % (Auto) Lymph # (Auto) Coffee # (Auto) Seg Neutrophils % Seg Neuts % (Manual) Lymphocytes % (Manual) Monocytes % (Manual) Basophils % (Manual) Seg Neutrophils # Seg Neutrophils # Man Lymphocytes # (Manual) Monocytes # (Manual) Eosinophils # (Manual) Basophils # (Manual) PT INR D-Dimer ABG pH POC ABG pCO2 POC ABG pO2 ABG pO2 ABG HCO3 ABG O2 Saturation ABG Base Excess ABG Hemoglobin ABG Oxyhemoglobin ABG Potassium ABG Glucose Oxyhemoglobin Carboxyhemoglobin Sodium Potassium Chloride Carbon Dioxide BUN Creatinine Glucose POC Glucose 120 H Calcium Ferritin Total Bilirubin Alkaline Phosphatase Lactate Dehydrogenase Total Creatine Kinase CK-MB (CK-2) Rel Index Troponin T C-Reactive Protein Total Protein Albumin Prealbumin LDL Cholesterol Direct HDL Cholesterol Arterial Blood Glucose Arterial Blood Ionized Calcium Urine WBC (Auto) Allied health notes reviewed: nursing
[2020-05-19] MEDS: ENOXAPARIN 40 MG/0.4 ML INJ SUB-Q SCH (22:21)
[2020-05-19] MEDS: SENNOSIDES 8.6 MG TAB PO SCH (22:23)
[2020-05-19] MEDS: diphenhydrAMINE 25 MG/10 ML ORAL LIQUID FEEDTUBE PRN (22:24)
[2020-05-20] MEDS: MORPHINE 2 MG/1 ML INJ IV PRN ×5 (00:46→23:10)
[2020-05-20] MEDS: ZOLPIDEM 5 MG TAB PO PRN ×2 (00:47→23:49)
[2020-05-20] MEDS: ALPRAZolam 0.5 MG TAB PO PRN ×2 (07:00→23:10)
--- NOTE | 2020-05-20 11:17 | Progress Note ---
Assessment and Plan --Acute hypoxic hypercapnic respiratory failure; Intubated on mechanical ventilation. Etiology secondary to sepsis, ALS, multifocal pneumonia (Covid negative). S/p trach placement 03/07/20 --Status post cardiac arrest on 02/25, cardiac hernandez now stable --Dysphagia, status post PEG placement for tube feeding --ALS; Chronic Continue to provide supportive care --Elevated D-dimers; CTA chest, lower extremity venous Doppler both are negative Lovenox for DVT prophylaxis --Bilateral pneumonia; probably community-acquired Completed treatment ID recommendations appreciated --Sepsis secondary to pneumonia s/p empiric antibiotic --Elevated troponin; Serial cardiac enzymes, serial EKGs Echocardiogram, cardiology consult if needed --Hypernatremia Trend sodium Free water via feeding tube --Abdominal distention due to bladder outlet obstruction, resolved CT abdomen showed bladder outlet obstruction, urology consulted s/p drake placement by urology on 03/09 --Hypotension possibly from septic shock and bladder outlet obstruction improved following placing drake --Hypernatremia due to hypovolumia, resolved free water with TF --Constipation; Patient already received Dulcolax suppository and Colace Received milk of magnesia, with relief --DVT prophylaxis; Lovenox Brief history: 59-year-old male patient with significant past medical history of ALS, presented to ED with worsening shortness of breath since the morning MED SPEC. Patient was on a trilogy machine for breathing 18/11. EMS arrived, patient had O2 sats in the 80s. EMS attempted to place patient on their CPAP machine, however patient did not tolerate. Patient was admitted to the ICU with diagnosis of acute hypoxic respiratory failure and placed on BiPAP. Patient initially tolerated but later deteriorated with respiratory status. CTA chest showed no PE but significant for bilateral pneumonia. Doppler ultrasound also negative for DVT. COVID-19 test ordered and negative. Due to persistent hypoxia and asystolic/V. fib cardiac arrest, patient was intubated on 02/26/2020 at 1500. Patient now on mechanical ventilation in the ICU s/p trach placement and now unable to wean off from the mechanical ventilation. Patient now status post PEG placement for tube feeding. Patient most likely need long-term placement -LTAC versus SNF Daily course: 02/25/2020. CTA of the chest reveals no PE but does illustrate the bilateral pneumonia. Doppler ultrasound also negative for DVT. Blood cultures are pe nding. Await COVID-19 testing. Patient currently requiring BiPAP IPAP 24/EPAP 6 with FiO2 of 25%. Continue O2 and BiPAP as clinically indicated. ID and pulmonary consulted. 02/26/2020. Blood cultures are negative x48 hours and Covid testing negative as well. Continue antibiotics per ID recommendations for community-acquired bilateral pneumonia. Cardiology consultation for elevated troponin. Check echocardiogram. 02/27/2020. Events of yesterday noted with asystole following V. fib arrest. Patient currently on AC mode rate 20, tidal volume 400, FiO2 50% and a PEEP of 6. Follow-up echocardiogram for elevated troponin. Cardiology suspects NSTEMI Type 2 in the setting of acute resp failure. Chest CTA and BLE Dopplers neg. we will discontinue Decadron given the Covid PCR is negative. 02/28/2020. I spoke with the sister Felisa Eli who is the power of deputy attorney general regarding advanced directives and she instructed me that she would like to continue with aggressive care at this time. I informed her of the guarded prognosis and high mortality/morbidity and she voiced understanding. Patient currently with AC mode ventilation rate 18, tidal volume 400, FiO2 40% and a PEEP of 6. Continue antibiotics for pneumonia. ID previously consulted. Also consult neurology with regards to ALS. 02/29/2020; patient is intubated and on CPAP patient is alert and oriented. Patient has ALS. Dr. Álvarez spoke with his sister and she wants aggressive care. Continue antibiotics for pneumonia. Neurology consulted for ALS. Prognosis poor 03/01/2020; patient is intubated and on CPAP, patient is alert and oriented. I spoke with his 2 sisters about the management plan. 03/02/2020; patient is intubated and on CPAP. Patient was alert and oriented. I spoke with Dr. mohr and he thinks patient may need mechanical ventilation, likely his disease progressed. Dr. Flowers did debridement this morning. 03/03/2020; patient is intubated and on CPAP, patient was on trilogy and BiPAP at home. Patient has ALS. on spontaneous breathing trial. Patient is alert and oriented but quadriplegic. Patient has severe bilateral pneumonia and is on cefepime and Vanco, ID is following. Patient has sacral decubitus ulcer and debridement was done by Dr. Flowers and there is no osteomyelitis. 03/05. Patient still on broad-spectrum antibiotics. Status post sacral decubitus ulcer debridements-no osteomyelitis. Patient is on AC 25/400/30% PEEP 5. No blood gas results today. 03/06. Plan for tracheostomy by surgery. Still remains intubated. Labs reviewed-sodium 150. Started on free water 200 every 8hr. trend sodium. 03/07: s/p trach placement today, patient placed back on mechanical ventilation with trach. Plan to resume tube feeding with NG tube. Continue to monitor vitals, monitor BMP. 03/08: Patient noted to have distended abdomen with low urinary output. Obtain bladder scan rule out urine retention, UA and urine culture, continue to follow clinically. 03/09: Patient noted to have low blood pressure with SBP as low as 70s. Ordered for 500 mils normal saline bolus. CT abdomen showed bladder outlet obstruction, urology consulted. 03/10: placed on drake by urology o/n, improved urine outpt. cont to monitor BMP. resuded TF - cont free water with TF. wean off from vent as tolerated. 03/11: Vitals stable. cont TF, wean off from vent as tolerated. start on 1/2 NS for hypernatremia - follow BMP 03/12: wean off vent as tolerated, plan for speech eval, cont Tf for now, cont iv fluid 03/13: unable to wean off from vent, unable to do speech therapy eval. will need PEG tube, cont supportive care for now, cont NG tube feeding 03/14: consulted GI for PEg placemnet, cont supportive care. remains on vent at night 03/15: Discussed with GI, plan for PEG tube placement possibly tomorrow. Continue supportive care and wean off from vent as tolerated. Hold Lovenox dose tonight. 03/16: family didnot consent for PEG placement yesterday. I spoke with the megan rodriguez today and she is now agreeable for PEG tube. I explained the necessity of the procedure with RN to the patient also and he nodded started on tube feeding, for the procedure. will cont supportive care. planned for PEG tube placement tomorrow. 03/17: s/p PEG placement today, patient tolerated well, cont supportive care 03/18: Started on tube feeding with new PEG tube, continue to wean off vent as tolerated 03/19: cont to monitor with supportive care, wean off vent as tolerated 03/20: Continue to wean off vent as tolerated -but failing weaning trial. Still requiring vent support at night. Currently on PEG tube for tube feed. 03/21. Pt with PSV trials with FiO@ 30%, PEEP 6, PS 10. Currently on PEG tube for tube feed. 03/22/2020. Continue PSV trials per pulmonary. Continue bronchodilators. Patient tolerating tube feedings. Continue Robinul for secretion control. 03/23/2020. Continue PSV trials per pulmonary. Continue bronchodilators. Continue Scopolamine and Robinul for secretion control. Trach care/airway management. Mobility protocols for pressure ulcer prophylaxis. LTAC evaluation per case management 03/24/2020. Continue PSV trials with current settings pressure support 10, PEEP 6 and FiO2 30%. Continue bronchodilators/nebulizer. Continue Scopolamine and Robinul for secretion control. Trach care/airway management. Mobility protocols for pressure ulcer prophylaxis. LTAC evaluation per case management 03/25/2020. Pulmonary to proceed with T-piece trials today. Continue bronchodilators/nebulizer. Continue Scopolamine and Robinul for secretion control. Trach care/airway management. Mobility protocols for pressure ulcer prophylaxis. 03/26/2020. Patient currently with PSV 10/6 at FiO2 of 30%. Continue weaning and T-piece trials per protocol. Continue bronchodilators/nebulizer. Continue Scopolamine and Robinul for secretion control. Trach care/airway management. Mobility protocols for pressure ulcer prophylaxis. Continue tube feeding with aspiration precautions. 03/27/2020. Patient currently with PSV 10/6 at FiO2 of 30%. Continue weaning and T-piece trials per protocol. Continue bronchodilators/nebulizer. Continue Scopolamine and Robinul for secretion control. Trach care/airway management. Mobility protocols for pressure ulcer prophylaxis. Continue tube feeding with aspiration precautions. 03/28. Had temp 100.7F. He has been off antibiotics. Will send blood culture, ua, urine culture and chest xray. Had chest pain overnight and trop was elevated as well. Cardiology to evaluate 03/29. Has back pain due to position. He mentions his chest pain is positional. Has no other complaints. Still on mechanical ventilation 03/30. No chest pain today. Labs reviewed. Discussed chest pain with cardiology and team advised no further work up at this time. Can follow up with cardiology in the office after hospitalization 03/31. Lidocaine patch for lower back pain. 04/01. Discharge planning underway. CM notes reviewed. Discussed with daughter 04/02. CM trying to arrange discharge. Continue PSV trials. Discussed with patients significant other 04/04/2020; CM is working for discharge arrangement. Continue PSV trials. 04/05/2020; patient was seen and evaluated this morning and no change from baseline. Continue with PSV trials. Follow with [employer] [facility] for discharge planning. 04/06/2020;patient was seen and evaluated this morning and no change from baseline. Continue with PSV trials. Follow with [employer] for discharge planning. 04/07/2020; patient was seen and evaluated this morning and no change from baseline. Continue with PSV trials. Follow with [employer] for discharge planning. 04/08/2020; patient is vent dependent. Discharge is per [employer] [facility]. 04/09/2020 patient is vent dependent, possible LTAC placement 04/10/2020; tracheostomy on vent, vent dependent pending LTAC placement 04/11/2020; clinically no change, tracheostomy on ventilatory support, wean as tolerated, awaiting placement 04/12/2020; remains on ventilatory support, unable to wean, patient wants to see a speech therapist for sound box However we cannot try that as long as he is on ventilatory support, once he is weaned off vent We will consult speech therapist, plan of care reviewed with the patient and his nurse 04/14/2020; clinically no change, on ventilatory support, complains of constipation, milk of magnesia Closely monitor the patient and adjust the management as needed 04/15/2020; patient has some oral thrush on the tongue, will give Magic mouthwash/nystatin swish and spit Wean off vent as tolerated 04/16 patient is alert and oriented, unable to comprehend what he is trying to tell but appears to complain of some pain, no acute events overnight, all interdisciplinary notes reviewed. Waiting for LTAC versus half-way facility placement 04/17/2020. Continue supportive care with mechanical ventilation. Patient currently on AC mode rate 10, tidal volume 400 FiO2 30% with a PEEP of 6. Discharge planning per case management. 04/18/2020. Patient remains on mechanical ventilation AC mode rate 10, tidal volume 400, FiO2 30% and PEEP of 6. Continue spontaneous breathing trials as tolerated. Previously, patient was considered for discharge home with skilled staff providing care for 12 hours 7 days/week. Continue discussed with case management discharge planning. 04/19/20. Patient remains on mechanical ventilation AC mode rate 10, tidal volume 400, FiO2 30% and PEEP of 6. Continue spontaneous breathing trials as tolerated. 04/20/2020. Patient remains on mechanical ventilation AC mode rate 10, tidal volume 400, FiO2 30% and PEEP of 6. Continue spontaneous breathing trials as tolerated. 04/21/2020. Patient remains on mechanical ventilation AC mode rate 10, tidal volume 400, FiO2 30% and PEEP of 6. Continue tracheostomy care, secretion control and airway management. Continue spontaneous breathing trials as tolerated. 04/22/2020. Patient remains on mechanical ventilation AC mode rate 10, tidal volume 400, FiO2 30% and PEEP of 6. Continue tracheostomy care, secretion control and airway management. Continue spontaneous breathing trials as tolera milana. 04/23/2020. Patient on mechanical ventilation AC mode rate 18, tidal volume 450, FiO2 30% and PEEP of 6. Continue tracheostomy care, secretion control and airway management. Continue spontaneous breathing trials as tolerated. Continue Robinul and scopolamine for secretions. Continue baclofen. 04/24/2020. Patient remains on AC mode ventilation rate 10, tidal volume 400, FiO2 30% and PEEP of 6. Continue tracheostomy care, secretion control and airway management. Continue spontaneous breathing trials as tolerated. Continue Robinul and scopolamine for secretions. Continue baclofen. Continue Xanax for anxiety and Ambien for sleep. Await case management follow-up with regards to discharge planning. 04/25/2020. Patient remains on AC mode ventilation rate 10, tidal volume 400, FiO2 30% and PEEP of 6. Continue tracheostomy care, secretion control and airway management. Continue spontaneous breathing trials as tolerated. Continue Robinul and scopolamine for secretions. Continue baclofen. Continue Xanax for anxiety and Ambien for sleep. Await case management follow-up with regards to discharge planning. 04/26. Patient remains on AC mode ventilation rate 10, tidal volume 400, FiO2 30% and PEEP of 6. Continue tracheostomy care, secretion control and airway management. Continue spontaneous breathing trials as tolerated. Continue Robinul and scopolamine for secretions. Continue baclofen. Continue Xanax for anxiety and Ambien for sleep. Await case management follow-up with regards to discharge planning. 04/27. Patient remains on AC mode ventilation rate 10, tidal volume 400, FiO2 30% and PEEP of 6. Continue tracheostomy care, secretion control and airway management. Continue spontaneous breathing trials as tolerated. Continue Robinul and scopolamine for secretions. Continue baclofen. Continue Xanax for anxiety and Ambien for sleep. Await case management follow-up with regards to discharge planning. 04/28/20 no acute events overnight, remains vent dependent, cardiology and pulmonary notes reviewed 04/29 remains intubated via tracheostomy, no acute events 04/30 no acute events overnight, cardiology note reviewed, remains vent dependent, discharge planning per case management 05/01 stable. cardiology and pulmonary notes reviewed. D/C acu-checks 05/02 - todate: Clinically stable, CM working on placement. Continue supportive care. Subjective Date of service: 05/20/20 Principal diagnosis: Ac on Ch Hypercapnic & hypoxemic Resp Failure; Severe Sepsis; Jamar PNA; ALS Interval history: Patient seen and examined Remains on trach tube Discussed with RN at the bedside Vitals reviewed -BP stable Tolerating tube feeding with PEG tube Objective - Exam Narrative Exam: GENERAL: Awake. Intubated with trach tube HEAD: No signs of head trauma. EYES: Pupils are equal. Extraocular motions intact. EARS: Hearing grossly intact. MOUTH: Oropharynx is normal. NECK: No adenopathy, no JVD. CHEST: Coarse breath sounds bilaterally CARDIAC: Regular rate and rhythm. S1 and S2, without murmurs, gallops, or rubs. VASCULAR: No Edema. Peripheral pulses normal and equal in all extremities. ABDOMEN: Soft, non tender and nondistended. Bowel Sounds normal. PEG in place NEUROLOGIC EXAM: Awake, paraplegic SKIN: No obvious lesions - Constitutional Vitals: Vital Signs - 12hr 05/19/20 05/20/20 05/20/20 23:50 00:00 00:36 Temperature 98.1 F Pulse Rate 97 H 105 H Pulse Rate [ 98 H From Monitor] Respiratory 21 Rate Blood Pressure 155/102 155/102 O2 Sat by Pulse 94 98 Oximetry O2 Sat by Pulse Oximetry [ Assessment] 05/20/20 05/20/20 05/20/20 00:46 01:00 02:00 Temperature Pulse Rate 101 H 103 H Pulse Rate [ From Monitor] Respiratory 22 26 H 20 Rate Blood Pressure 156/102 138/99 O2 Sat by Pulse 94 95 Oximetry O2 Sat by Pulse Oximetry [ Assessment] 05/20/20 05/20/20 05/20/20 03:00 04:00 05:01 Temperature 98.0 F Pulse Rate 116 H 110 H 112 H Pulse Rate [ 112 H From Monitor] Respiratory 29 H 24 23 Rate Blood Pressure 142/100 159/107 168/106 O2 Sat by Pulse 94 95 94 Oximetry O2 Sat by Pulse Oximetry [ Assessment] 05/20/20 05/20/20 05/20/20 06:00 06:01 06:14 Temperature Pulse Rate 113 H 102 H Pulse Rate [ From Monitor] Respiratory 24 Rate Blood Pressure 162/93 O2 Sat by Pulse 95 98 Oximetry O2 Sat by Pulse 98 Oximetry [ Assessment] 05/20/20 05/20/20 05/20/20 06:59 07:00 08:00 Temperature 97.9 F Pulse Rate 109 H 115 H Pulse Rate [ From Monitor] Respiratory 26 H 26 H 25 H Rate Blood Pressure 170/114 155/102 O2 Sat by Pulse 96 98 Oximetry O2 Sat by Pulse Oximetry [ Assessment] 05/20/20 05/20/20 08:56 09:00 Temperature Pulse Rate 115 H 107 H Pulse Rate [ From Monitor] Respiratory 21 21 Rate Blood Pressure 148/112 O2 Sat by Pulse 98 97 Oximetry O2 Sat by Pulse Oximetry [ Assessment] - Labs CBC & Chem 7: 05/07/20 04:43 05/09/20 16:06 Labs: Abnormal lab results 05/19/20 05/19/20 05/19/20 Range/Units 11:36 16:49 23:17 POC Glucose 120 H 110 H 122 H (70-105) mg/dL 05/20/20 Range/Units 05:17 POC Glucose 133 H (70-105) mg/dL HEART Score - HEART Score Troponin: Troponin T 0.181 ng/mL (0.00-0.029) H* 04/24/20 05:28
[2020-05-20] MEDS: LANSOPRAZOLE 30 MG SOLUTAB FEEDTUBE SCH (11:46)
[2020-05-20] MEDS: DOCUSATE SODIUM 100 MG/10 ML ORAL LIQD FEEDTUBE SCH ×2 (11:46→22:32)
[2020-05-20] MEDS: ASPIRIN EC 81 MG TAB PO SCH (11:46)
[2020-05-20] MEDS: PREGABALIN 75 MG CAP PO SCH ×2 (11:46→22:32)
[2020-05-20] MEDS: METOPROLOL TARTRATE 25 MG TAB PO SCH ×2 (11:47→22:33)
[2020-05-20] MEDS: BACLOFEN 10 MG TAB PO SCH ×2 (11:47→22:32)
[2020-05-20] MEDS: TAMSULOSIN 0.4 MG CAP PO SCH (11:47)
[2020-05-20] MEDS: MAGIC MOUTHWASH 30ML PO SCH ×3 (11:48→23:24)
[2020-05-20] MEDS: SCOPOLAMINE TRANSDERMAL PATCH 72 HR TD SCH (11:48)
[2020-05-20] MEDS: diphenhydrAMINE 25 MG/10 ML ORAL LIQUID FEEDTUBE PRN ×2 (11:48→16:21)
[2020-05-20] MEDS: LIDOCAINE 5% 1 EACH PATCH TD SCH (11:48)
[2020-05-20] MEDS: GLYCOPYRROLATE 1 MG TAB PO SCH ×3 (11:52→22:33)
--- NOTE | 2020-05-20 11:53 | Progress Note ---
Assessment and Plan Patient Sleepin sleeping at this time. Patient is on assist control mechanical ventilation, rate 10, Tidal volume 300, FIO2 30%, PEEP 6 and O2 saturation running 97%. Recommend Continue spontaneous breathing trials as tolerated.Respiratory therapy told me, Patient Not tolearing T tube trial ' Recommend to decrease pressure support to 5.Patient afebrile and has no leukocytosis. Chest xray done 05/02/20 reported Interval worsening of right lung base opacity now appears to be pleural parenchymal. This may be a worsened infectious process or development of right-sided pleural effusion and worsened right lung base atelectasis. Left lung base opacity is stable. Tracheostomy in stable position. Patient right lung base infiltrate reported intervel worsening, patient has no leukocytosis, recommend to place him antibiotic like zosyn. Repeat chest xray 05/11/20 reported Mild interval improvement in the hazy opacity at the right lung base as described. I suspect this represents an improving atelectasis over effusion. - Patient Problems (1) Acute on chronic respiratory failure with hypoxia and hypercapnia Current Visit: Yes Status: Acute Plan to address problem: Patient is resting on assist control rate 10, tidal volume 300, FIO2 30%, PEEP 6. Albuterol inhaler 2 puffs po qid. Continue S/C Lovenox. Continue prevacid. Recommend continue spontaneous breathing trials. (2) Bleeding from wound Current Visit: Yes Status: Acute Plan to address problem: Management primary care , surgery and wound care. (3) Elevated d-dimer Current Visit: Yes Status: Acute Plan to address problem: Patients venous doppler studies of legs, CTA chest reported Negative for VTE. Patient is on S/C Lovenox 40 mg qd. (4) Elevated troponin Current Visit: Yes Status: Acute Plan to address problem: Management as per primary care and cardiology (5) NSTEMI (non-ST elevated myocardial infarction) Current Visit: Yes Status: Acute Plan to address problem: Management as per cardiology. (6) Pneumonia Current Visit: Yes Status: Acute Qualifiers: Laterality: bilateral Plan to address problem: Patient afebrile . Has mild leukocytosis. Repeat Chest xray done 05/02/20 reported Interval worsening of right lung base opacity now appears to be pleural parenchymal. This may be a worsened infectious process or development of right-sided pleural effusion and worsened right lung base atelectasis. Left lung base opacity is stable. Tracheostomy in stable position. Patient right lung base infiltrate reported intervel worsening, patient has no leukocytosis, recommend to place him antibiotic like zosyn. Repeating chest xray and ABGs. Repeat chest xray 05/11/20 reported Mild interval improvement in the hazy opacity at the right lung base as described. I suspect this represents an improving atelectasis over effusion. Subjective Date of service: 05/20/20 Principal diagnosis: Ac on Ch Hypercapnic & hypoxemic Resp Failure; Severe Sepsis; Jamar PNA; ALS Interval history: Patient Sleepin sleeping at this time. Patient is on assist control mechanical ventilation, rate 10, Tidal volume 300, FIO2 30%, PEEP 6 and O2 saturation running 97%. Recommend Continue spontaneous breathing trials as tolerated.Respiratory therapy told me, Patient Not tolearing T tube trial ' Recommend to decrease pressure support to 5.Patient afebrile and has no leukocytosis. Chest xray done 05/02/20 reported Interval worsening of right lung base opacity now appears to be pleural parenchymal. This may be a worsened infectious process or development of right-sided pleural effusion and worsened right lung base atelectasis. Left lung base opacity is stable. Tracheostomy in stable position. Patient right lung base infiltrate reported intervel worsening, patient has no leukocytosis, recommend to place him antibiotic like zosyn. Repeat chest xray 05/11/20 reported Mild interval improvement in the hazy opacity at the right lung base as described. I suspect this represents an improving atelectasis over effusion. Objective Vital Signs - 12hr 05/20/20 05/20/20 05/20/20 00:00 00:36 00:46 Temperature Pulse Rate 97 H 105 H Pulse Rate [ 98 H From Monitor] Respiratory 21 22 Rate Blood Pressure 155/102 155/102 O2 Sat by Pulse 94 98 Oximetry O2 Sat by Pulse Oximetry [ Assessment] 05/20/20 05/20/20 05/20/20 01:00 02:00 03:00 Temperature Pulse Rate 101 H 103 H 116 H Pulse Rate [ From Monitor] Respiratory 26 H 20 29 H Rate Blood Pressure 156/102 138/99 142/100 O2 Sat by Pulse 94 95 94 Oximetry O2 Sat by Pulse Oximetry [ Assessment] 05/20/20 05/20/20 05/20/20 04:00 05:01 06:00 Temperature 98.0 F Pulse Rate 110 H 112 H Pulse Rate [ 112 H From Monitor] Respiratory 24 23 Rate Blood Pressure 159/107 168/106 O2 Sat by Pulse 95 94 Oximetry O2 Sat by Pulse 98 Oximetry [ Assessment] 05/20/20 05/20/20 05/20/20 06:01 06:14 06:59 Temperature Pulse Rate 113 H 102 H Pulse Rate [ From Monitor] Respiratory 24 26 H Rate Blood Pressure 162/93 O2 Sat by Pulse 95 98 Oximetry O2 Sat by Pulse Oximetry [ Assessment] 05/20/20 05/20/20 05/20/20 07:00 08:00 08:56 Temperature 97.9 F Pulse Rate 109 H 115 H 115 H Pulse Rate [ From Monitor] Respiratory 26 H 25 H 21 Rate Blood Pressure 170/114 155/102 O2 Sat by Pulse 96 98 98 Oximetry O2 Sat by Pulse Oximetry [ Assessment] 05/20/20 09:00 Temperature Pulse Rate 107 H Pulse Rate [ From Monitor] Respiratory 21 Rate Blood Pressure 148/112 O2 Sat by Pulse 97 Oximetry O2 Sat by Pulse Oximetry [ Assessment] Constitutional: no acute distress, other (thin middle aged male with mildly increased respiratory effort at rest on MVS) Eyes: non-icteric ENT: oropharynx moist, other (S/P Tracheostomy) Neck: supple, no lymphadenopathy, no JVD Effort: mildly labored Ascultation: Bilateral: diminished breath sounds, wheezes, rhonchi (scant in bases) Percussion: Bilateral: not dull Cardiovascular: regular rate and rhythm, other (S1,S2, no murmurs) Gastrointestinal: normoactive bowel sounds, soft, non-tender, non-distended Integumentary: normal, decubitus ulcer (sacral / gluteal) Extremities: no cyanosis, no edema, pulses normal, other (atrophic looking limbs) Neurologic: pupils equal and round, other (motor strength in extremities 1-2/5, awake, alert, mouths words to make needs known) Psychiatric: depressed CBC and BMP: 05/21/20 04:18 05/21/20 04:18 ABG, PT/INR, D-dimer: ABG ABG pH 7.371 (7.320-7.450) 03/08/20 12:34 POC ABG pCO2 63.1 mmHg (32.0-48.0) H 03/08/20 12:34 ABG pCO2 60.1 mm Hg 03/06/20 04:34 POC ABG pO2 90.5 mmHg (83-108) 03/08/20 12:34 ABG pO2 88.6 mm Hg (80.0-90.0) 03/06/20 04:34 POC ABG HCO3 35.7 03/08/20 12:34 ABG O2 Saturation 97.0 % (95.0-99.0) 03/06/20 04:34 PT/INR, D-dimer PT 15.6 Sec. (12.2-14.9) H 02/24/20 09:19 INR 1.21 (0.87-1.13) H 02/24/20 09:19 D-Dimer 1311.96 ng/mlDDU (0-234) H 02/24/20 09:19 Abnormal lab findings: Abnormal Labs 02/24/20 02/24/20 02/24/20 09:19 09:19 09:19 WBC 20.2 H RBC 5.05 H Hgb Hct MCV MCH RDW 15.3 H Plt Count Lymph % (Auto) Leslie % (Auto) Lymph # (Auto) Leslie # (Auto) Seg Neutrophils % Seg Neuts % (Manual) 86.0 H Lymphocytes % (Manual) 1.0 L Monocytes % (Manual) Basophils % (Manual) Seg Neutrophils # Seg Neutrophils # Man 17.4 H Lymphocytes # (Manual) 0.2 L Monocytes # (Manual) Eosinophils # (Manual) Basophils # (Manual) PT 15.6 H INR 1.21 H D-Dimer 1311.96 H ABG pH POC ABG pCO2 POC ABG pO2 ABG pO2 ABG HCO3 ABG O2 Saturation ABG Base Excess ABG Hemoglobin ABG Oxyhemoglobin ABG Potassium ABG Glucose Oxyhemoglobin Carboxyhemoglobin Sodium 135 L Potassium 3.2 L Chloride 92.2 L Carbon Dioxide BUN 6 L Creatinine < 0.2 L Glucose 124 H POC Glucose Calcium Ferritin Total Bilirubin 2.30 H Alkaline Phosphatase 132 H Lactate Dehydrogenase Total Creatine Kinase CK-MB (CK-2) Rel Index Troponin T 0.080 H C-Reactive Protein Total Protein Albumin 3.6 L Prealbumin LDL Cholesterol Direct 41 L HDL Cholesterol Arterial Blood Glucose Arterial Blood Ionized Calcium Urine WBC (Auto) 02/24/20 02/24/20 02/24/20 09:19 09:58 10:01 WBC RBC Hgb Hct MCV MCH RDW Plt Count Lymph % (Auto) Leslie % (Auto) Lymph # (Auto) Leslie # (Auto) Seg Neutrophils % Seg Neuts % (Manual) Lymphocytes % (Manual) Monocytes % (Manual) Basophils % (Manual) Seg Neutrophils # Seg Neutrophils # Man Lymphocytes # (Manual) Monocytes # (Manual) Eosinophils # (Manual) Basophils # (Manual) PT INR D-Dimer ABG pH 7.176 L* POC ABG pCO2 POC ABG pO2 ABG pO2 91.2 H ABG HCO3 ABG O2 Saturation ABG Base Excess -4.6 L ABG Hemoglobin ABG Oxyhemoglobin ABG Potassium ABG Glucose Oxyhemoglobin 92.6 L Carboxyhemoglobin Sodium Potassium Chloride Carbon Dioxide BUN Creatinine Glucose POC Glucose Calcium Ferritin 1715.0 H Total Bilirubin Alkaline Phosphatase Lactate Dehydrogenase 303 H Total Creatine Kinase CK-MB (CK-2) Rel Index Troponin T C-Reactive Protein 26.10 H Total Protein Albumin Prealbumin LDL Cholesterol Direct HDL Cholesterol Arterial Blood Glucose Arterial Blood Ionized Calcium Urine WBC (Auto) 02/24/20 02/24/20 02/24/20 11:52 13:45 19:35 WBC RBC Hgb Hct MCV MCH RDW Plt Count Lymph % (Auto) Leslie % (Auto) Lymph # (Auto) Leslie # (Auto) Seg Neutrophils % Seg Neuts % (Manual) Lymphocytes % (Manual) Monocytes % (Manual) Basophils % (Manual) Seg Neutrophils # Seg Neutrophils # Man Lymphocytes # (Manual) Monocytes # (Manual) Eosinophils # (Manual) Basophils # (Manual) PT INR D-Dimer ABG pH 7.051 L* 7.300 L POC ABG pCO2 POC ABG pO2 ABG pO2 94.7 H 75.1 L ABG HCO3 18.0 L ABG O2 Saturation 93.5 L ABG Base Excess -6.8 L -7.8 L ABG Hemoglobin 13.2 L 11.9 L ABG Oxyhemoglobin ABG Potassium ABG Glucose Oxyhemoglobin 91.0 L 92.7 L Carboxyhemoglobin Sodium Potassium Chloride Carbon Dioxide BUN Creatinine Glucose POC Glucose Calcium Ferritin Total Bilirubin Alkaline Phosphatase Lactate Dehydrogenase Total Creatine Kinase CK-MB (CK-2) Rel Index Troponin T 0.034 H D C-Reactive Protein Total Protein Albumin Prealbumin LDL Cholesterol Direct HDL Cholesterol Arterial Blood Glucose Arterial Blood Ionized Calcium Urine WBC (Auto) 02/25/20 02/25/20 02/25/20 04:00 04:00 12:26 WBC 22.9 H RBC Hgb Hct MCV 83 L MCH 27 L RDW Plt Count 468 H Lymph % (Auto) Leslie % (Auto) Lymph # (Auto) Leslie # (Auto) Seg Neutrophils % Seg Neuts % (Manual) 89.0 H Lymphocytes % (Manual) 7.0 L Monocytes % (Manual) Basophils % (Manual) Seg Neutrophils # Seg Neutrophils # Man 20.4 H Lymphocytes # (Manual) Monocytes # (Manual) Eosinophils # (Manual) Basophils # (Manual) PT INR D-Dimer ABG pH POC ABG pCO2 POC ABG pO2 ABG pO2 ABG HCO3 ABG O2 Saturation ABG Base Excess ABG Hemoglobin ABG Oxyhemoglobin ABG Potassium 2.6 L ABG Glucose 142 H Oxyhemoglobin Carboxyhemoglobin Sodium Potassium 3.2 L Chloride Carbon Dioxide 18 L BUN Creatinine 0.2 L Glucose 114 H POC Glucose Calcium Ferritin Total Bilirubin Alkaline Phosphatase Lactate Dehydrogenase Total Creatine Kinase CK-MB (CK-2) Rel Index Troponin T C-Reactive Protein Total Protein Albumin 3.5 L Prealbumin LDL Cholesterol Direct HDL Cholesterol Arterial Blood Glucose 142 H Arterial Blood Ionized Calcium Urine WBC (Auto) 02/26/20 02/26/20 02/26/20 15:58 17:00 23:43 WBC RBC Hgb Hct MCV MCH RDW Plt Count Lymph % (Auto) Leslie % (Auto) Lymph # (Auto) Leslie # (Auto) Seg Neutrophils % Seg Neuts % (Manual) Lymphocytes % (Manual) Monocytes % (Manual) Basophils % (Manual) Seg Neutrophils # Seg Neutrophils # Man Lymphocytes # (Manual) Monocytes # (Manual) Eosinophils # (Manual) Basophils # (Manual) PT INR D-Dimer ABG pH 7.502 H POC ABG pCO2 POC ABG pO2 213.6 H ABG pO2 ABG HCO3 ABG O2 Saturation ABG Base Excess ABG Hemoglobin ABG Oxyhemoglobin 99.2 H ABG Potassium 2.9 L ABG Glucose 160 H Oxyhemoglobin Carboxyhemoglobin 0.4 L Sodium Potassium Chloride Carbon Dioxide BUN Creatinine Glucose POC Glucose 189 H 120 H Calcium Ferritin Total Bilirubin Alkaline Phosphatase Lactate Dehydrogenase Total Creatine Kinase CK-MB (CK-2) Rel Index Troponin T C-Reactive Protein Total Protein Albumin Prealbumin LDL Cholesterol Direct HDL Cholesterol Arterial Blood Glucose 160 H Arterial Blood Ionized Calcium 4.5 L Urine WBC (Auto) 02/27/20 02/27/20 02/27/20 05:00 07:04 17:45 WBC RBC Hgb Hct MCV MCH RDW Plt Count Lymph % (Auto) Leslie % (Auto) Lymph # (Auto) Leslie # (Auto) Seg Neutrophils % Seg Neuts % (Manual) Lymphocytes % (Manual) Monocytes % (Manual) Basophils % (Manual) Seg Neutrophils # Seg Neutrophils # Man Lymphocytes # (Manual) Monocytes # (Manual) Eosinophils # (Manual) Basophils # (Manual) PT INR D-Dimer ABG pH 7.524 H POC ABG pCO2 POC ABG pO2 ABG pO2 ABG HCO3 ABG O2 Saturation ABG Base Excess ABG Hemoglobin ABG Oxyhemoglobin ABG Potassium 3.0 L ABG Glucose 143 H Oxyhemoglobin Carboxyhemoglobin Sodium Potassium Chloride Carbon Dioxide BUN Creatinine Glucose POC Glucose 154 H 175 H Calcium Ferritin Total Bilirubin Alkaline Phosphatase Lactate Dehydrogenase Total Creatine Kinase CK-MB (CK-2) Rel Index Troponin T C-Reactive Protein Total Protein Albumin Prealbumin LDL Cholesterol Direct HDL Cholesterol Arterial Blood Glucose 143 H Arterial Blood Ionized Calcium Urine WBC (Auto) 02/27/20 02/28/20 02/28/20 Unknown 00:21 04:15 WBC 18.7 H RBC Hgb Hct MCV MCH RDW Plt Count Lymph % (Auto) 8.7 L Leslie % (Auto) Lymph # (Auto) Leslie # (Auto) 1.2 H Seg Neutrophils % 84.6 H Seg Neuts % (Manual) Lymphocytes % (Manual) Monocytes % (Manual) Basophils % (Manual) Seg Neutrophils # 15.9 H Seg Neutrophils # Man Lymphocytes # (Manual) Monocytes # (Manual) Eosinophils # (Manual) Basophils # (Manual) PT INR D-Dimer ABG pH POC ABG pCO2 POC ABG pO2 ABG pO2 ABG HCO3 ABG O2 Saturation ABG Base Excess ABG Hemoglobin ABG Oxyhemoglobin ABG Potassium ABG Glucose Oxyhemoglobin Carboxyhemoglobin Sodium Potassium 2.9 L* Chloride Carbon Dioxide 33 H D BUN Creatinine < 0.2 L Glucose 157 H POC Glucose 134 H Calcium Ferritin Total Bilirubin Alkaline Phosphatase Lactate Dehydrogenase Total Creatine Kinase CK-MB (CK-2) Rel Index Troponin T C-Reactive Protein Total Protein Albumin Prealbumin LDL Cholesterol Direct HDL Cholesterol Arterial Blood Glucose Arterial Blood Ionized Calcium Urine WBC (Auto) 02/28/20 02/28/20 02/28/20 04:15 05:16 05:39 WBC RBC Hgb Hct MCV MCH RDW Plt Count Lymph % (Auto) Leslie % (Auto) Lymph # (Auto) Leslie # (Auto) Seg Neutrophils % Seg Neuts % (Manual) Lymphocytes % (Manual) Monocytes % (Manual) Basophils % (Manual) Seg Neutrophils # Seg Neutrophils # Man Lymphocytes # (Manual) Monocytes # (Manual) Eosinophils # (Manual) Basophils # (Manual) PT INR D-Dimer ABG pH POC ABG pCO2 POC ABG pO2 ABG pO2 142.9 H ABG HCO3 34.1 H ABG O2 Saturation ABG Base Excess 8.3 H ABG Hemoglobin ABG Oxyhemoglobin ABG Potassium ABG Glucose Oxyhemoglobin Carboxyhemoglobin Sodium 151 H Potassium Chloride Carbon Dioxide 32 H BUN Creatinine 0.2 L Glucose 167 H POC Glucose 138 H Calcium Ferritin Total Bilirubin Alkaline Phosphatase Lactate Dehydrogenase Total Creatine Kinase CK-MB (CK-2) Rel Index Troponin T C-Reactive Protein Total Protein Albumin Prealbumin LDL Cholesterol Direct HDL Cholesterol Arterial Blood Glucose Arterial Blood Ionized Calcium Urine WBC (Auto) 02/28/20 02/28/20 02/28/20 11:05 11:33 12:54 WBC RBC Hgb Hct MCV MCH RDW Plt Count Lymph % (Auto) Leslie % (Auto) Lymph # (Auto) Leslie # (Auto) Seg Neutrophils % Seg Neuts % (Manual) Lymphocytes % (Manual) Monocytes % (Manual) Basophils % (Manual) Seg Neutrophils # Seg Neutrophils # Man Lymphocytes # (Manual) Monocytes # (Manual) Eosinophils # (Manual) Basophils # (Manual) PT INR D-Dimer ABG pH POC ABG pCO2 POC ABG pO2 ABG pO2 ABG HCO3 ABG O2 Saturation ABG Base Excess ABG Hemoglobin ABG Oxyhemoglobin ABG Potassium ABG Glucose Oxyhemoglobin Carboxyhemoglobin Sodium Potassium Chloride Carbon Dioxide BUN Creatinine Glucose POC Glucose 160 H Calcium Ferritin Total Bilirubin Alkaline Phosphatase Lactate Dehydrogenase Total Creatine Kinase CK-MB (CK-2) Rel Index Troponin T C-Reactive Protein 4.70 H Total Protein Albumin Prealbumin 0.090 L LDL Cholesterol Direct HDL Cholesterol Arterial Blood Glucose Arterial Blood Ionized Calcium Urine WBC (Auto) 02/28/20 02/29/20 02/29/20 17:34 00:44 04:05 WBC 19.6 H RBC Hgb Hct MCV MCH 27 L RDW 15.4 H Plt Count Lymph % (Auto) Leslie % (Auto) Lymph # (Auto) Leslie # (Auto) Seg Neutrophils % Seg Neuts % (Manual) 86.0 H Lymphocytes % (Manual) 7.0 L Monocytes % (Manual) Basophils % (Manual) Seg Neutrophils # Seg Neutrophils # Man 16.9 H Lymphocytes # (Manual) Monocytes # (Manual) 1.2 H Eosinophils # (Manual) Basophils # (Manual) PT INR D-Dimer ABG pH POC ABG pCO2 POC ABG pO2 ABG pO2 ABG HCO3 ABG O2 Saturation ABG Base Excess ABG Hemoglobin ABG Oxyhemoglobin ABG Potassium ABG Glucose Oxyhemoglobin Carboxyhemoglobin Sodium Potassium Chloride Carbon Dioxide BUN Creatinine Glucose POC Glucose 136 H 156 H Calcium Ferritin Total Bilirubin Alkaline Phosphatase Lactate Dehydrogenase Total Creatine Kinase CK-MB (CK-2) Rel Index Troponin T C-Reactive Protein Total Protein Albumin Prealbumin LDL Cholesterol Direct HDL Cholesterol Arterial Blood Glucose Arterial Blood Ionized Calcium Urine WBC (Auto) 02/29/20 02/29/20 02/29/20 04:05 05:14 05:33 WBC RBC Hgb Hct MCV MCH RDW Plt Count Lymph % (Auto) Leslie % (Auto) Lymph # (Auto) Leslie # (Auto) Seg Neutrophils % Seg Neuts % (Manual) Lymphocytes % (Manual) Monocytes % (Manual) Basophils % (Manual) Seg Neutrophils # Seg Neutrophils # Man Lymphocytes # (Manual) Monocytes # (Manual) Eosinophils # (Manual) Basophils # (Manual) PT INR D-Dimer ABG pH POC ABG pCO2 54.3 H POC ABG pO2 124.8 H ABG pO2 ABG HCO3 ABG O2 Saturation ABG Base Excess ABG Hemoglobin ABG Oxyhemoglobin ABG Potassium ABG Glucose 185 H Oxyhemoglobin Carboxyhemoglobin Sodium 148 H Potassium Chloride Carbon Dioxide 33 H BUN Creatinine < 0.2 L Glucose 173 H POC Glucose 152 H Calcium Ferritin Total Bilirubin Alkaline Phosphatase Lactate Dehydrogenase Total Creatine Kinase CK-MB (CK-2) Rel Index Troponin T C-Reactive Protein Total Protein Albumin Prealbumin LDL Cholesterol Direct HDL Cholesterol Arterial Blood Glucose 185 H Arterial Blood Ionized Calcium Urine WBC (Auto) 03/01/20 03/01/20 03/01/20 00:00 03:45 04:33 WBC 23.1 H RBC Hgb Hct MCV MCH 27 L RDW 15.3 H Plt Count Lymph % (Auto) Leslie % (Auto) Lymph # (Auto) Leslie # (Auto) Seg Neutrophils % Seg Neuts % (Manual) 92.0 H Lymphocytes % (Manual) 6.0 L Monocytes % (Manual) Basophils % (Manual) Seg Neutrophils # Seg Neutrophils # Man 21.3 H Lymphocytes # (Manual) Monocytes # (Manual) Eosinophils # (Manual) 0.5 H Basophils # (Manual) PT INR D-Dimer ABG pH 7.492 H POC ABG pCO2 POC ABG pO2 ABG pO2 157.1 H ABG HCO3 32.3 H ABG O2 Saturation ABG Base Excess 8.1 H ABG Hemoglobin 13.2 L ABG Oxyhemoglobin ABG Potassium ABG Glucose Oxyhemoglobin Carboxyhemoglobin Sodium Potassium Chloride Carbon Dioxide BUN Creatinine Glucose POC Glucose 109 H Calcium Ferritin Total Bilirubin Alkaline Phosphatase Lactate Dehydrogenase Total Creatine Kinase CK-MB (CK-2) Rel Index Troponin T C-Reactive Protein Total Protein Albumin Prealbumin LDL Cholesterol Direct HDL Cholesterol Arterial Blood Glucose Arterial Blood Ionized Calcium Urine WBC (Auto) 03/01/20 03/01/20 03/01/20 04:33 05:29 12:32 WBC RBC Hgb Hct MCV MCH RDW Plt Count Lymph % (Auto) Leslie % (Auto) Lymph # (Auto) Leslie # (Auto) Seg Neutrophils % Seg Neuts % (Manual) Lymphocytes % (Manual) Monocytes % (Manual) Basophils % (Manual) Seg Neutrophils # Seg Neutrophils # Man Lymphocytes # (Manual) Monocytes # (Manual) Eosinophils # (Manual) Basophils # (Manual) PT INR D-Dimer ABG pH POC ABG pCO2 POC ABG pO2 ABG pO2 ABG HCO3 ABG O2 Saturation ABG Base Excess ABG Hemoglobin ABG Oxyhemoglobin ABG Potassium ABG Glucose Oxyhemoglobin Carboxyhemoglobin Sodium 146 H Potassium Chloride Carbon Dioxide 32 H BUN Creatinine < 0.2 L Glucose 120 H POC Glucose 120 H 128 H Calcium Ferritin Total Bilirubin Alkaline Phosphatase Lactate Dehydrogenase Total Creatine Kinase CK-MB (CK-2) Rel Index Troponin T C-Reactive Protein Total Protein Albumin Prealbumin LDL Cholesterol Direct HDL Cholesterol Arterial Blood Glucose Arterial Blood Ionized Calcium Urine WBC (Auto) 03/01/20 03/01/20 03/02/20 17:38 23:46 06:13 WBC RBC Hgb Hct MCV MCH RDW Plt Count Lymph % (Auto) Leslie % (Auto) Lymph # (Auto) Leslie # (Auto) Seg Neutrophils % Seg Neuts % (Manual) Lymphocytes % (Manual) Monocytes % (Manual) Basophils % (Manual) Seg Neutrophils # Seg Neutrophils # Man Lymphocytes # (Manual) Monocytes # (Manual) Eosinophils # (Manual) Basophils # (Manual) PT INR D-Dimer ABG pH POC ABG pCO2 POC ABG pO2 ABG pO2 ABG HCO3 ABG O2 Saturation ABG Base Excess ABG Hemoglobin ABG Oxyhemoglobin ABG Potassium ABG Glucose Oxyhemoglobin Carboxyhemoglobin Sodium Potassium Chloride Carbon Dioxide BUN Creatinine Glucose POC Glucose 114 H 121 H 120 H Calcium Ferritin Total Bilirubin Alkaline Phosphatase Lactate Dehydrogenase Total Creatine Kinase CK-MB (CK-2) Rel Index Troponin T C-Reactive Protein Total Protein Albumin Prealbumin LDL Cholesterol Direct HDL Cholesterol Arterial Blood Glucose Arterial Blood Ionized Calcium Urine WBC (Auto) 03/02/20 03/02/20 03/03/20 09:47 09:47 10:21 WBC 23.6 H RBC Hgb Hct MCV MCH RDW 15.3 H Plt Count 494 H Lymph % (Auto) Leslie % (Auto) Lymph # (Auto) Leslie # (Auto) Seg Neutrophils % Seg Neuts % (Manual) 85.0 H Lymphocytes % (Manual) 6.0 L Monocytes % (Manual) Basophils % (Manual) Seg Neutrophils # Seg Neutrophils # Man 20.1 H Lymphocytes # (Manual) Monocytes # (Manual) 1.7 H Eosinophils # (Manual) Basophils # (Manual) PT INR D-Dimer ABG pH POC ABG pCO2 POC ABG pO2 ABG pO2 ABG HCO3 ABG O2 Saturation ABG Base Excess ABG Hemoglobin ABG Oxyhemoglobin ABG Potassium 3.3 L ABG Glucose 158 H Oxyhemoglobin Carboxyhemoglobin Sodium Potassium Chloride Carbon Dioxide BUN Creatinine < 0.2 L Glucose 177 H POC Glucose Calcium Ferritin Total Bilirubin Alkaline Phosphatase Lactate Dehydrogenase Total Creatine Kinase CK-MB (CK-2) Rel Index Troponin T C-Reactive Protein Total Protein Albumin Prealbumin LDL Cholesterol Direct HDL Cholesterol Arterial Blood Glucose 158 H Arterial Blood Ionized Calcium Urine WBC (Auto) 03/03/20 03/04/20 03/04/20 21:30 00:00 12:23 WBC RBC Hgb Hct MCV MCH RDW Plt Count Lymph % (Auto) Leslie % (Auto) Lymph # (Auto) Leslie # (Auto) Seg Neutrophils % Seg Neuts % (Manual) Lymphocytes % (Manual) Monocytes % (Manual) Basophils % (Manual) Seg Neutrophils # Seg Neutrophils # Man Lymphocytes # (Manual) Monocytes # (Manual) Eosinophils # (Manual) Basophils # (Manual) PT INR D-Dimer ABG pH 7.328 L POC ABG pCO2 POC ABG pO2 ABG pO2 68.4 L ABG HCO3 35.0 H ABG O2 Saturation 93.9 L ABG Base Excess 6.8 H ABG Hemoglobin 12.7 L ABG Oxyhemoglobin ABG Potassium ABG Glucose Oxyhemoglobin 91.9 L Carboxyhemoglobin Sodium Potassium Chloride Carbon Dioxide BUN Creatinine Glucose POC Glucose 187 H 163 H Calcium Ferritin Total Bilirubin Alkaline Phosphatase Lactate Dehydrogenase Total Creatine Kinase CK-MB (CK-2) Rel Index Troponin T C-Reactive Protein Total Protein Albumin Prealbumin LDL Cholesterol Direct HDL Cholesterol Arterial Blood Glucose Arterial Blood Ionized Calcium Urine WBC (Auto) 03/04/20 03/04/20 03/05/20 18:15 21:30 06:02 WBC RBC Hgb Hct MCV MCH RDW Plt Count Lymph % (Auto) Leslie % (Auto) Lymph # (Auto) Leslie # (Auto) Seg Neutrophils % Seg Neuts % (Manual) Lymphocytes % (Manual) Monocytes % (Manual) Basophils % (Manual) Seg Neutrophils # Seg Neutrophils # Man Lymphocytes # (Manual) Monocytes # (Manual) Eosinophils # (Manual) Basophils # (Manual) PT INR D-Dimer ABG pH 7.297 L POC ABG pCO2 POC ABG pO2 ABG pO2 ABG HCO3 41.0 H ABG O2 Saturation ABG Base Excess 11.0 H ABG Hemoglobin 13.1 L ABG Oxyhemoglobin ABG Potassium ABG Glucose Oxyhemoglobin 94.5 L Carboxyhemoglobin Sodium Potassium Chloride Carbon Dioxide BUN Creatinine Glucose POC Glucose 192 H 127 H Calcium Ferritin Total Bilirubin Alkaline Phosphatase Lactate Dehydrogenase Total Creatine Kinase CK-MB (CK-2) Rel Index Troponin T C-Reactive Protein Total Protein Albumin Prealbumin LDL Cholesterol Direct HDL Cholesterol Arterial Blood Glucose Arterial Blood Ionized Calcium Urine WBC (Auto) 03/05/20 03/05/20 03/06/20 12:09 16:42 00:24 WBC RBC Hgb Hct MCV MCH RDW Plt Count Lymph % (Auto) Leslie % (Auto) Lymph # (Auto) Leslie # (Auto) Seg Neutrophils % Seg Neuts % (Manual) Lymphocytes % (Manual) Monocytes % (Manual) Basophils % (Manual) Seg Neutrophils # Seg Neutrophils # Man Lymphocytes # (Manual) Monocytes # (Manual) Eosinophils # (Manual) Basophils # (Manual) PT INR D-Dimer ABG pH POC ABG pCO2 POC ABG pO2 ABG pO2 ABG HCO3 ABG O2 Saturation ABG Base Excess ABG Hemoglobin ABG Oxyhemoglobin ABG Potassium ABG Glucose Oxyhemoglobin Carboxyhemoglobin Sodium Potassium Chloride Carbon Dioxide BUN Creatinine Glucose POC Glucose 147 H 114 H 134 H Calcium Ferritin Total Bilirubin Alkaline Phosphatase Lactate Dehydrogenase Total Creatine Kinase CK-MB (CK-2) Rel Index Troponin T C-Reactive Protein Total Protein Albumin Prealbumin LDL Cholesterol Direct HDL Cholesterol Arterial Blood Glucose Arterial Blood Ionized Calcium Urine WBC (Auto) 03/06/20 03/06/20 03/06/20 04:34 05:53 06:08 WBC 25.4 H RBC Hgb 10.5 L Hct 32.7 L MCV MCH 27 L RDW 15.3 H Plt Count 634 H Lymph % (Auto) Leslie % (Auto) Lymph # (Auto) Leslie # (Auto) Seg Neutrophils % Seg Neuts % (Manual) 88.0 H Lymphocytes % (Manual) 2.0 L Monocytes % (Manual) 8.0 H Basophils % (Manual) Seg Neutrophils # Seg Neutrophils # Man 22.4 H Lymphocytes # (Manual) 0.5 L Monocytes # (Manual) 2.0 H Eosinophils # (Manual) Basophils # (Manual) PT INR D-Dimer ABG pH POC ABG pCO2 POC ABG pO2 ABG pO2 ABG HCO3 37.9 H ABG O2 Saturation ABG Base Excess 11.4 H ABG Hemoglobin 10.6 L ABG Oxyhemoglobin ABG Potassium ABG Glucose Oxyhemoglobin 94.7 L Carboxyhemoglobin Sodium Potassium Chloride Carbon Dioxide BUN Creatinine Glucose POC Glucose 135 H Calcium Ferritin Total Bilirubin Alkaline Phosphatase Lactate Dehydrogenase Total Creatine Kinase CK-MB (CK-2) Rel Index Troponin T C-Reactive Protein Total Protein Albumin Prealbumin LDL Cholesterol Direct HDL Cholesterol Arterial Blood Glucose Arterial Blood Ionized Calcium Urine WBC (Auto) 03/06/20 03/06/20 03/06/20 06:08 12:19 19:10 WBC RBC Hgb Hct MCV MCH RDW Plt Count Lymph % (Auto) Leslie % (Auto) Lymph # (Auto) Leslie # (Auto) Seg Neutrophils % Seg Neuts % (Manual) Lymphocytes % (Manual) Monocytes % (Manual) Basophils % (Manual) Seg Neutrophils # Seg Neutrophils # Man Lymphocytes # (Manual) Monocytes # (Manual) Eosinophils # (Manual) Basophils # (Manual) PT INR D-Dimer ABG pH POC ABG pCO2 POC ABG pO2 ABG pO2 ABG HCO3 ABG O2 Saturation ABG Base Excess ABG Hemoglobin ABG Oxyhemoglobin ABG Potassium ABG Glucose Oxyhemoglobin Carboxyhemoglobin Sodium 150 H D Potassium Chloride Carbon Dioxide 39 H D BUN 23 H Creatinine < 0.2 L Glucose 144 H POC Glucose 169 H 152 H Calcium Ferritin Total Bilirubin Alkaline Phosphatase Lactate Dehydrogenase Total Creatine Kinase CK-MB (CK-2) Rel Index Troponin T C-Reactive Protein Total Protein Albumin 3.3 L Prealbumin LDL Cholesterol Direct HDL Cholesterol Arterial Blood Glucose Arterial Blood Ionized Calcium Urine WBC (Auto) 03/06/20 03/07/20 03/07/20 23:58 04:25 04:25 WBC 22.1 H RBC Hgb 10.9 L Hct 32.9 L MCV MCH RDW 15.5 H Plt Count 739 H Lymph % (Auto) 7.8 L Leslie % (Auto) Lymph # (Auto) Leslie # (Auto) 1.3 H Seg Neutrophils % 85.5 H Seg Neuts % (Manual) Lymphocytes % (Manual) Monocytes % (Manual) Basophils % (Manual) Seg Neutrophils # 18.9 H Seg Neutrophils # Man Lymphocytes # (Manual) Monocytes # (Manual) Eosinophils # (Manual) Basophils # (Manual) PT INR D-Dimer ABG pH POC ABG pCO2 POC ABG pO2 ABG pO2 ABG HCO3 ABG O2 Saturation ABG Base Excess ABG Hemoglobin ABG Oxyhemoglobin ABG Potassium ABG Glucose Oxyhemoglobin Carboxyhemoglobin Sodium 146 H Potassium Chloride Carbon Dioxide 37 H BUN Creatinine < 0.2 L Glucose 118 H POC Glucose 111 H Calcium Ferritin Total Bilirubin Alkaline Phosphatase Lactate Dehydrogenase Total Creatine Kinase CK-MB (CK-2) Rel Index Troponin T C-Reactive Protein Total Protein Albumin 3.7 L Prealbumin LDL Cholesterol Direct HDL Cholesterol Arterial Blood Glucose Arterial Blood Ionized Calcium Urine WBC (Auto) 03/07/20 03/07/20 03/07/20 05:20 17:45 23:32 WBC RBC Hgb Hct MCV MCH RDW Plt Count Lymph % (Auto) Leslie % (Auto) Lymph # (Auto) Leslie # (Auto) Seg Neutrophils % Seg Neuts % (Manual) Lymphocytes % (Manual) Monocytes % (Manual) Basophils % (Manual) Seg Neutrophils # Seg Neutrophils # Man Lymphocytes # (Manual) Monocytes # (Manual) Eosinophils # (Manual) Basophils # (Manual) PT INR D-Dimer ABG pH POC ABG pCO2 POC ABG pO2 ABG pO2 ABG HCO3 ABG O2 Saturation ABG Base Excess ABG Hemoglobin ABG Oxyhemoglobin ABG Potassium ABG Glucose Oxyhemoglobin Carboxyhemoglobin Sodium Potassium Chloride Carbon Dioxide BUN Creatinine Glucose POC Glucose 113 H 124 H 210 H Calcium Ferritin Total Bilirubin Alkaline Phosphatase Lactate Dehydrogenase Total Creatine Kinase CK-MB (CK-2) Rel Index Troponin T C-Reactive Protein Total Protein Albumin Prealbumin LDL Cholesterol Direct HDL Cholesterol Arterial Blood Glucose Arterial Blood Ionized Calcium Urine WBC (Auto) 03/08/20 03/08/20 03/08/20 05:35 06:43 06:43 WBC 28.9 H RBC 3.53 L Hgb 9.7 L Hct 30.3 L MCV MCH RDW 15.6 H Plt Count 578 H Lymph % (Auto) Leslie % (Auto) Lymph # (Auto) Leslie # (Auto) Seg Neutrophils % Seg Neuts % (Manual) 93.0 H Lymphocytes % (Manual) 4.0 L Monocytes % (Manual) Basophils % (Manual) Seg Neutrophils # Seg Neutrophils # Man 26.9 H Lymphocytes # (Manual) Monocytes # (Manual) Eosinophils # (Manual) Basophils # (Manual) PT INR D-Dimer ABG pH POC ABG pCO2 POC ABG pO2 ABG pO2 ABG HCO3 ABG O2 Saturation ABG Base Excess ABG Hemoglobin ABG Oxyhemoglobin ABG Potassium ABG Glucose Oxyhemoglobin Carboxyhemoglobin Sodium 146 H Potassium Chloride Carbon Dioxide 35 H BUN 34 H Creatinine 0.3 L D Glucose 125 H POC Glucose 147 H Calcium Ferritin Total Bilirubin Alkaline Phosphatase Lactate Dehydrogenase Total Creatine Kinase CK-MB (CK-2) Rel Index Troponin T C-Reactive Protein Total Protein 5.9 L Albumin 3.2 L Prealbumin LDL Cholesterol Direct HDL Cholesterol Arterial Blood Glucose Arterial Blood Ionized Calcium Urine WBC (Auto) 03/08/20 03/08/20 03/08/20 08:57 11:14 12:34 WBC RBC Hgb Hct MCV MCH RDW Plt Count Lymph % (Auto) Leslie % (Auto) Lymph # (Auto) Leslie # (Auto) Seg Neutrophils % Seg Neuts % (Manual) Lymphocytes % (Manual) Monocytes % (Manual) Basophils % (Manual) Seg Neutrophils # Seg Neutrophils # Man Lymphocytes # (Manual) Monocytes # (Manual) Eosinophils # (Manual) Basophils # (Manual) PT INR D-Dimer ABG pH POC ABG pCO2 63.1 H POC ABG pO2 ABG pO2 ABG HCO3 ABG O2 Saturation ABG Base Excess ABG Hemoglobin 10.9 L ABG Oxyhemoglobin ABG Potassium ABG Glucose 176 H Oxyhemoglobin Carboxyhemoglobin Sodium Potassium Chloride Carbon Dioxide BUN Creatinine Glucose POC Glucose 171 H Calcium Ferritin Total Bilirubin Alkaline Phosphatase Lactate Dehydrogenase Total Creatine Kinase CK-MB (CK-2) Rel Index Troponin T C-Reactive Protein Total Protein Albumin Prealbumin LDL Cholesterol Direct HDL Cholesterol Arterial Blood Glucose 176 H Arterial Blood Ionized Calcium 4.5 L Urine WBC (Auto) 10.0 H 03/08/20 03/08/20 03/09/20 18:02 23:43 05:49 WBC RBC Hgb Hct MCV MCH RDW Plt Count Lymph % (Auto) Leslie % (Auto) Lymph # (Auto) Leslie # (Auto) Seg Neutrophils % Seg Neuts % (Manual) Lymphocytes % (Manual) Monocytes % (Manual) Basophils % (Manual) Seg Neutrophils # Seg Neutrophils # Man Lymphocytes # (Manual) Monocytes # (Manual) Eosinophils # (Manual) Basophils # (Manual) PT INR D-Dimer ABG pH POC ABG pCO2 POC ABG pO2 ABG pO2 ABG HCO3 ABG O2 Saturation ABG Base Excess ABG Hemoglobin ABG Oxyhemoglobin ABG Potassium ABG Glucose Oxyhemoglobin Carboxyhemoglobin Sodium Potassium Chloride Carbon Dioxide BUN Creatinine Glucose POC Glucose 157 H 134 H 163 H Calcium Ferritin Total Bilirubin Alkaline Phosphatase Lactate Dehydrogenase Total Creatine Kinase CK-MB (CK-2) Rel Index Troponin T C-Reactive Protein Total Protein Albumin Prealbumin LDL Cholesterol Direct HDL Cholesterol Arterial Blood Glucose Arterial Blood Ionized Calcium Urine WBC (Auto) 03/09/20 03/09/20 03/09/20 08:35 08:35 12:11 WBC 23.4 H RBC 3.36 L Hgb 9.3 L Hct 28.8 L MCV MCH RDW 15.9 H Plt Count 521 H Lymph % (Auto) Leslie % (Auto) Lymph # (Auto) Leslie # (Auto) Seg Neutrophils % Seg Neuts % (Manual) 87.0 H Lymphocytes % (Manual) 4.0 L Monocytes % (Manual) 9.0 H Basophils % (Manual) Seg Neutrophils # Seg Neutrophils # Man 20.4 H Lymphocytes # (Manual) 0.9 L Monocytes # (Manual) 2.1 H Eosinophils # (Manual) Basophils # (Manual) PT INR D-Dimer ABG pH POC ABG pCO2 POC ABG pO2 ABG pO2 ABG HCO3 ABG O2 Saturation ABG Base Excess ABG Hemoglobin ABG Oxyhemoglobin ABG Potassium ABG Glucose Oxyhemoglobin Carboxyhemoglobin Sodium 147 H Potassium Chloride Carbon Dioxide 37 H BUN 63 H Creatinine Glucose 154 H POC Glucose 128 H Calcium Ferritin Total Bilirubin Alkaline Phosphatase Lactate Dehydrogenase Total Creatine Kinase CK-MB (CK-2) Rel Index Troponin T C-Reactive Protein Total Protein Albumin Prealbumin LDL Cholesterol Direct HDL Cholesterol Arterial Blood Glucose Arterial Blood Ionized Calcium Urine WBC (Auto) 03/09/20 03/10/20 03/10/20 17:51 00:25 05:41 WBC RBC Hgb Hct MCV MCH RDW Plt Count Lymph % (Auto) Leslie % (Auto) Lymph # (Auto) Leslie # (Auto) Seg Neutrophils % Seg Neuts % (Manual) Lymphocytes % (Manual) Monocytes % (Manual) Basophils % (Manual) Seg Neutrophils # Seg Neutrophils # Man Lymphocytes # (Manual) Monocytes # (Manual) Eosinophils # (Manual) Basophils # (Manual) PT INR D-Dimer ABG pH POC ABG pCO2 POC ABG pO2 ABG pO2 ABG HCO3 ABG O2 Saturation ABG Base Excess ABG Hemoglobin ABG Oxyhemoglobin ABG Potassium ABG Glucose Oxyhemoglobin Carboxyhemoglobin Sodium Potassium Chloride Carbon Dioxide BUN Creatinine Glucose POC Glucose 127 H 128 H 153 H Calcium Ferritin Total Bilirubin Alkaline Phosphatase Lactate Dehydrogenase Total Creatine Kinase CK-MB (CK-2) Rel Index Troponin T C-Reactive Protein Total Protein Albumin Prealbumin LDL Cholesterol Direct HDL Cholesterol Arterial Blood Glucose Arterial Blood Ionized Calcium Urine WBC (Auto) 03/10/20 03/10/20 03/10/20 06:14 06:14 12:02 WBC 18.3 H RBC 3.45 L Hgb 9.5 L Hct 29.5 L MCV MCH RDW 16.1 H Plt Count 494 H Lymph % (Auto) Leslie % (Auto) Lymph # (Auto) Leslie # (Auto) Seg Neutrophils % Seg Neuts % (Manual) 95.0 H Lymphocytes % (Manual) 1.0 L Monocytes % (Manual) Basophils % (Manual) Seg Neutrophils # Seg Neutrophils # Man 17.4 H Lymphocytes # (Manual) 0.2 L Monocytes # (Manual) Eosinophils # (Manual) Basophils # (Manual) PT INR D-Dimer ABG pH POC ABG pCO2 POC ABG pO2 ABG pO2 ABG HCO3 ABG O2 Saturation ABG Base Excess ABG Hemoglobin ABG Oxyhemoglobin ABG Potassium ABG Glucose Oxyhemoglobin Carboxyhemoglobin Sodium 149 H Potassium Chloride Carbon Dioxide 35 H BUN 34 H Creatinine 0.2 L D Glucose 177 H POC Glucose 151 H Calcium Ferritin Total Bilirubin Alkaline Phosphatase Lactate Dehydrogenase Total Creatine Kinase CK-MB (CK-2) Rel Index Troponin T C-Reactive Protein Total Protein Albumin Prealbumin LDL Cholesterol Direct HDL Cholesterol Arterial Blood Glucose Arterial Blood Ionized Calcium Urine WBC (Auto) 03/10/20 03/10/20 03/11/20 17:41 23:53 05:02 WBC RBC Hgb Hct MCV MCH RDW Plt Count Lymph % (Auto) Leslie % (Auto) Lymph # (Auto) Leslie # (Auto) Seg Neutrophils % Seg Neuts % (Manual) Lymphocytes % (Manual) Monocytes % (Manual) Basophils % (Manual) Seg Neutrophils # Seg Neutrophils # Man Lymphocytes # (Manual) Monocytes # (Manual) Eosinophils # (Manual) Basophils # (Manual) PT INR D-Dimer ABG pH POC ABG pCO2 POC ABG pO2 ABG pO2 ABG HCO3 ABG O2 Saturation ABG Base Excess ABG Hemoglobin ABG Oxyhemoglobin ABG Potassium ABG Glucose Oxyhemoglobin Carboxyhemoglobin Sodium Potassium Chloride Carbon Dioxide BUN Creatinine Glucose POC Glucose 168 H 142 H 146 H Calcium Ferritin Total Bilirubin Alkaline Phosphatase Lactate Dehydrogenase Total Creatine Kinase CK-MB (CK-2) Rel Index Troponin T C-Reactive Protein Total Protein Albumin Prealbumin LDL Cholesterol Direct HDL Cholesterol Arterial Blood Glucose Arterial Blood Ionized Calcium Urine WBC (Auto) 03/11/20 03/11/20 03/11/20 11:30 14:01 14:01 WBC 19.7 H RBC 3.04 L Hgb 8.7 L Hct 25.8 L MCV MCH RDW 15.6 H Plt Count Lymph % (Auto) Leslie % (Auto) Lymph # (Auto) Leslie # (Auto) Seg Neutrophils % Seg Neuts % (Manual) Lymphocytes % (Manual) Monocytes % (Manual) Basophils % (Manual) Seg Neutrophils # Seg Neutrophils # Man Lymphocytes # (Manual) Monocytes # (Manual) Eosinophils # (Manual) Basophils # (Manual) PT INR D-Dimer ABG pH POC ABG pCO2 POC ABG pO2 ABG pO2 ABG HCO3 ABG O2 Saturation ABG Base Excess ABG Hemoglobin ABG Oxyhemoglobin ABG Potassium ABG Glucose Oxyhemoglobin Carboxyhemoglobin Sodium 151 H Potassium Chloride Carbon Dioxide 37 H BUN Creatinine < 0.2 L Glucose 171 H POC Glucose 248 H Calcium Ferritin Total Bilirubin Alkaline Phosphatase Lactate Dehydrogenase Total Creatine Kinase CK-MB (CK-2) Rel Index Troponin T C-Reactive Protein Total Protein Albumin Prealbumin LDL Cholesterol Direct HDL Cholesterol Arterial Blood Glucose Arterial Blood Ionized Calcium Urine WBC (Auto) 03/11/20 03/11/20 03/12/20 17:09 23:52 04:39 WBC 19.9 H RBC 3.16 L Hgb 8.9 L Hct 27.5 L MCV MCH RDW 15.7 H Plt Count Lymph % (Auto) 6.8 L Leslie % (Auto) Lymph # (Auto) Leslie # (Auto) 1.2 H Seg Neutrophils % 86.0 H Seg Neuts % (Manual) Lymphocytes % (Manual) Monocytes % (Manual) Basophils % (Manual) Seg Neutrophils # 17.1 H Seg Neutrophils # Man Lymphocytes # (Manual) Monocytes # (Manual) Eosinophils # (Manual) Basophils # (Manual) PT INR D-Dimer ABG pH POC ABG pCO2 POC ABG pO2 ABG pO2 ABG HCO3 ABG O2 Saturation ABG Base Excess ABG Hemoglobin ABG Oxyhemoglobin ABG Potassium ABG Glucose Oxyhemoglobin Carboxyhemoglobin Sodium Potassium Chloride Carbon Dioxide BUN Creatinine Glucose POC Glucose 124 H 131 H Calcium Ferritin Total Bilirubin Alkaline Phosphatase Lactate Dehydrogenase Total Creatine Kinase CK-MB (CK-2) Rel Index Troponin T C-Reactive Protein Total Protein Albumin Prealbumin LDL Cholesterol Direct HDL Cholesterol Arterial Blood Glucose Arterial Blood Ionized Calcium Urine WBC (Auto) 03/12/20 03/12/20 03/12/20 04:39 05:28 11:34 WBC RBC Hgb Hct MCV MCH RDW Plt Count Lymph % (Auto) Leslie % (Auto) Lymph # (Auto) Leslie # (Auto) Seg Neutrophils % Seg Neuts % (Manual) Lymphocytes % (Manual) Monocytes % (Manual) Basophils % (Manual) Seg Neutrophils # Seg Neutrophils # Man Lymphocytes # (Manual) Monocytes # (Manual) Eosinophils # (Manual) Basophils # (Manual) PT INR D-Dimer ABG pH POC ABG pCO2 POC ABG pO2 ABG pO2 ABG HCO3 ABG O2 Saturation ABG Base Excess ABG Hemoglobin ABG Oxyhemoglobin ABG Potassium ABG Glucose Oxyhemoglobin Carboxyhemoglobin Sodium 147 H Potassium Chloride Carbon Dioxide 40 H BUN Creatinine < 0.2 L Glucose 175 H POC Glucose 167 H 144 H Calcium Ferritin Total Bilirubin Alkaline Phosphatase Lactate Dehydrogenase Total Creatine Kinase CK-MB (CK-2) Rel Index Troponin T C-Reactive Protein Total Protein Albumin Prealbumin LDL Cholesterol Direct HDL Cholesterol Arterial Blood Glucose Arterial Blood Ionized Calcium Urine WBC (Auto) 03/12/20 03/12/20 03/13/20 17:32 23:57 05:57 WBC RBC Hgb Hct MCV MCH RDW Plt Count Lymph % (Auto) Leslie % (Auto) Lymph # (Auto) Leslie # (Auto) Seg Neutrophils % Seg Neuts % (Manual) Lymphocytes % (Manual) Monocytes % (Manual) Basophils % (Manual) Seg Neutrophils # Seg Neutrophils # Man Lymphocytes # (Manual) Monocytes # (Manual) Eosinophils # (Manual) Basophils # (Manual) PT INR D-Dimer ABG pH POC ABG pCO2 POC ABG pO2 ABG pO2 ABG HCO3 ABG O2 Saturation ABG Base Excess ABG Hemoglobin ABG Oxyhemoglobin ABG Potassium ABG Glucose Oxyhemoglobin Carboxyhemoglobin Sodium Potassium Chloride Carbon Dioxide BUN Creatinine Glucose POC Glucose 141 H 137 H 161 H Calcium Ferritin Total Bilirubin Alkaline Phosphatase Lactate Dehydrogenase Total Creatine Kinase CK-MB (CK-2) Rel Index Troponin T C-Reactive Protein Total Protein Albumin Prealbumin LDL Cholesterol Direct HDL Cholesterol Arterial Blood Glucose Arterial Blood Ionized Calcium Urine WBC (Auto) 03/13/20 03/13/20 03/13/20 12:28 14:14 18:39 WBC RBC Hgb Hct MCV MCH RDW Plt Count Lymph % (Auto) Leslie % (Auto) Lymph # (Auto) Leslie # (Auto) Seg Neutrophils % Seg Neuts % (Manual) Lymphocytes % (Manual) Monocytes % (Manual) Basophils % (Manual) Seg Neutrophils # Seg Neutrophils # Man Lymphocytes # (Manual) Monocytes # (Manual) Eosinophils # (Manual) Basophils # (Manual) PT INR D-Dimer ABG pH POC ABG pCO2 POC ABG pO2 ABG pO2 ABG HCO3 ABG O2 Saturation ABG Base Excess ABG Hemoglobin ABG Oxyhemoglobin ABG Potassium ABG Glucose Oxyhemoglobin Carboxyhemoglobin Sodium Potassium Chloride Carbon Dioxide 39 H BUN Creatinine < 0.2 L Glucose 129 H POC Glucose 130 H 125 H Calcium Ferritin Total Bilirubin Alkaline Phosphatase Lactate Dehydrogenase Total Creatine Kinase CK-MB (CK-2) Rel Index Troponin T C-Reactive Protein Total Protein Albumin Prealbumin LDL Cholesterol Direct HDL Cholesterol Arterial Blood Glucose Arterial Blood Ionized Calcium Urine WBC (Auto) 03/13/20 03/14/20 03/14/20 23:33 05:24 08:07 WBC 16.8 H RBC 2.81 L Hgb 7.9 L Hct 23.9 L MCV MCH RDW 15.9 H Plt Count Lymph % (Auto) Leslie % (Auto) Lymph # (Auto) Leslie # (Auto) Seg Neutrophils % Seg Neuts % (Manual) 84.0 H Lymphocytes % (Manual) 10.0 L Monocytes % (Manual) Basophils % (Manual) Seg Neutrophils # Seg Neutrophils # Man 14.1 H Lymphocytes # (Manual) Monocytes # (Manual) Eosinophils # (Manual) Basophils # (Manual) PT INR D-Dimer ABG pH POC ABG pCO2 POC ABG pO2 ABG pO2 ABG HCO3 ABG O2 Saturation ABG Base Excess ABG Hemoglobin ABG Oxyhemoglobin ABG Potassium ABG Glucose Oxyhemoglobin Carboxyhemoglobin Sodium Potassium Chloride Carbon Dioxide BUN Creatinine Glucose POC Glucose 146 H 125 H Calcium Ferritin Total Bilirubin Alkaline Phosphatase Lactate Dehydrogenase Total Creatine Kinase CK-MB (CK-2) Rel Index Troponin T C-Reactive Protein Total Protein Albumin Prealbumin LDL Cholesterol Direct HDL Cholesterol Arterial Blood Glucose Arterial Blood Ionized Calcium Urine WBC (Auto) 03/14/20 03/14/20 03/14/20 08:07 12:21 18:26 WBC RBC Hgb Hct MCV MCH RDW Plt Count Lymph % (Auto) Leslie % (Auto) Lymph # (Auto) Leslie # (Auto) Seg Neutrophils % Seg Neuts % (Manual) Lymphocytes % (Manual) Monocytes % (Manual) Basophils % (Manual) Seg Neutrophils # Seg Neutrophils # Man Lymphocytes # (Manual) Monocytes # (Manual) Eosinophils # (Manual) Basophils # (Manual) PT INR D-Dimer ABG pH POC ABG pCO2 POC ABG pO2 ABG pO2 ABG HCO3 ABG O2 Saturation ABG Base Excess ABG Hemoglobin ABG Oxyhemoglobin ABG Potassium ABG Glucose Oxyhemoglobin Carboxyhemoglobin Sodium Potassium Chloride 97.0 L Carbon Dioxide 37 H BUN Creatinine < 0.2 L Glucose 129 H POC Glucose 109 H 142 H Calcium 8.3 L Ferritin Total Bilirubin Alkaline Phosphatase Lactate Dehydrogenase Total Creatine Kinase CK-MB (CK-2) Rel Index Troponin T C-Reactive Protein Total Protein Albumin Prealbumin LDL Cholesterol Direct HDL Cholesterol Arterial Blood Glucose Arterial Blood Ionized Calcium Urine WBC (Auto) 03/14/20 03/15/20 03/15/20 23:57 05:46 08:06 WBC 19.7 H RBC 3.29 L Hgb 9.1 L Hct 28.0 L MCV MCH RDW 15.9 H Plt Count Lymph % (Auto) Leslie % (Auto) Lymph # (Auto) Leslie # (Auto) Seg Neutrophils % Seg Neuts % (Manual) Lymphocytes % (Manual) Monocytes % (Manual) Basophils % (Manual) Seg Neutrophils # Seg Neutrophils # Man Lymphocytes # (Manual) Monocytes # (Manual) Eosinophils # (Manual) Basophils # (Manual) PT INR D-Dimer ABG pH POC ABG pCO2 POC ABG pO2 ABG pO2 ABG HCO3 ABG O2 Saturation ABG Base Excess ABG Hemoglobin ABG Oxyhemoglobin ABG Potassium ABG Glucose Oxyhemoglobin Carboxyhemoglobin Sodium Potassium Chloride Carbon Dioxide BUN Creatinine Glucose POC Glucose 157 H 118 H Calcium Ferritin Total Bilirubin Alkaline Phosphatase Lactate Dehydrogenase Total Creatine Kinase CK-MB (CK-2) Rel Index Troponin T C-Reactive Protein Total Protein Albumin Prealbumin LDL Cholesterol Direct HDL Cholesterol Arterial Blood Glucose Arterial Blood Ionized Calcium Urine WBC (Auto) 03/15/20 03/15/20 03/15/20 08:06 12:44 18:09 WBC RBC Hgb Hct MCV MCH RDW Plt Count Lymph % (Auto) Leslie % (Auto) Lymph # (Auto) Leslie # (Auto) Seg Neutrophils % Seg Neuts % (Manual) Lymphocytes % (Manual) Monocytes % (Manual) Basophils % (Manual) Seg Neutrophils # Seg Neutrophils # Man Lymphocytes # (Manual) Monocytes # (Manual) Eosinophils # (Manual) Basophils # (Manual) PT INR D-Dimer ABG pH POC ABG pCO2 POC ABG pO2 ABG pO2 ABG HCO3 ABG O2 Saturation ABG Base Excess ABG Hemoglobin ABG Oxyhemoglobin ABG Potassium ABG Glucose Oxyhemoglobin Carboxyhemoglobin Sodium 136 L Potassium Chloride 93.6 L Carbon Dioxide 37 H BUN Creatinine < 0.2 L Glucose 132 H POC Glucose 151 H 164 H Calcium Ferritin Total Bilirubin Alkaline Phosphatase Lactate Dehydrogenase Total Creatine Kinase CK-MB (CK-2) Rel Index Troponin T C-Reactive Protein Total Protein Albumin Prealbumin LDL Cholesterol Direct HDL Cholesterol Arterial Blood Glucose Arterial Blood Ionized Calcium Urine WBC (Auto) 03/15/20 03/16/20 03/16/20 23:26 05:39 11:58 WBC RBC Hgb Hct MCV MCH RDW Plt Count Lymph % (Auto) Leslie % (Auto) Lymph # (Auto) Leslie # (Auto) Seg Neutrophils % Seg Neuts % (Manual) Lymphocytes % (Manual) Monocytes % (Manual) Basophils % (Manual) Seg Neutrophils # Seg Neutrophils # Man Lymphocytes # (Manual) Monocytes # (Manual) Eosinophils # (Manual) Basophils # (Manual) PT INR D-Dimer ABG pH POC ABG pCO2 POC ABG pO2 ABG pO2 ABG HCO3 ABG O2 Saturation ABG Base Excess ABG Hemoglobin ABG Oxyhemoglobin ABG Potassium ABG Glucose Oxyhemoglobin Carboxyhemoglobin Sodium Potassium Chloride Carbon Dioxide BUN Creatinine Glucose POC Glucose 136 H 116 H 109 H Calcium Ferritin Total Bilirubin Alkaline Phosphatase Lactate Dehydrogenase Total Creatine Kinase CK-MB (CK-2) Rel Index Troponin T C-Reactive Protein Total Protein Albumin Prealbumin LDL Cholesterol Direct HDL Cholesterol Arterial Blood Glucose Arterial Blood Ionized Calcium Urine WBC (Auto) 03/16/20 03/17/20 03/17/20 23:56 04:40 04:40 WBC 18.0 H RBC 3.33 L Hgb 9.5 L Hct 28.8 L MCV MCH RDW 16.4 H Plt Count 499 H Lymph % (Auto) Leslie % (Auto) Lymph # (Auto) Leslie # (Auto) Seg Neutrophils % Seg Neuts % (Manual) 82.0 H Lymphocytes % (Manual) 8.0 L Monocytes % (Manual) Basophils % (Manual) Seg Neutrophils # Seg Neutrophils # Man 14.8 H Lymphocytes # (Manual) Monocytes # (Manual) 1.3 H Eosinophils # (Manual) Basophils # (Manual) 0.2 H PT INR D-Dimer ABG pH POC ABG pCO2 POC ABG pO2 ABG pO2 ABG HCO3 ABG O2 Saturation ABG Base Excess ABG Hemoglobin ABG Oxyhemoglobin ABG Potassium ABG Glucose Oxyhemoglobin Carboxyhemoglobin Sodium Potassium Chloride 97.7 L Carbon Dioxide 32 H BUN Creatinine < 0.2 L Glucose 114 H POC Glucose 131 H Calcium Ferritin Total Bilirubin Alkaline Phosphatase Lactate Dehydrogenase Total Creatine Kinase CK-MB (CK-2) Rel Index Troponin T C-Reactive Protein Total Protein Albumin Prealbumin LDL Cholesterol Direct HDL Cholesterol Arterial Blood Glucose Arterial Blood Ionized Calcium Urine WBC (Auto) 03/18/20 03/18/20 03/18/20 00:21 05:21 11:55 WBC RBC Hgb Hct MCV MCH RDW Plt Count Lymph % (Auto) Leslie % (Auto) Lymph # (Auto) Leslie # (Auto) Seg Neutrophils % Seg Neuts % (Manual) Lymphocytes % (Manual) Monocytes % (Manual) Basophils % (Manual) Seg Neutrophils # Seg Neutrophils # Man Lymphocytes # (Manual) Monocytes # (Manual) Eosinophils # (Manual) Basophils # (Manual) PT INR D-Dimer ABG pH POC ABG pCO2 POC ABG pO2 ABG pO2 ABG HCO3 ABG O2 Saturation ABG Base Excess ABG Hemoglobin ABG Oxyhemoglobin ABG Potassium ABG Glucose Oxyhemoglobin Carboxyhemoglobin Sodium Potassium Chloride Carbon Dioxide BUN Creatinine Glucose POC Glucose 124 H 138 H 119 H Calcium Ferritin Total Bilirubin Alkaline Phosphatase Lactate Dehydrogenase Total Creatine Kinase CK-MB (CK-2) Rel Index Troponin T C-Reactive Protein Total Protein Albumin Prealbumin LDL Cholesterol Direct HDL Cholesterol Arterial Blood Glucose Arterial Blood Ionized Calcium Urine WBC (Auto) 03/18/20 03/18/20 03/19/20 17:03 23:58 05:24 WBC RBC Hgb Hct MCV MCH RDW Plt Count Lymph % (Auto) Leslie % (Auto) Lymph # (Auto) Leslie # (Auto) Seg Neutrophils % Seg Neuts % (Manual) Lymphocytes % (Manual) Monocytes % (Manual) Basophils % (Manual) Seg Neutrophils # Seg Neutrophils # Man Lymphocytes # (Manual) Monocytes # (Manual) Eosinophils # (Manual) Basophils # (Manual) PT INR D-Dimer ABG pH POC ABG pCO2 POC ABG pO2 ABG pO2 ABG HCO3 ABG O2 Saturation ABG Base Excess ABG Hemoglobin ABG Oxyhemoglobin ABG Potassium ABG Glucose Oxyhemoglobin Carboxyhemoglobin Sodium Potassium Chloride Carbon Dioxide BUN Creatinine Glucose POC Glucose 128 H 128 H 115 H Calcium Ferritin Total Bilirubin Alkaline Phosphatase Lactate Dehydrogenase Total Creatine Kinase CK-MB (CK-2) Rel Index Troponin T C-Reactive Protein Total Protein Albumin Prealbumin LDL Cholesterol Direct HDL Cholesterol Arterial Blood Glucose Arterial Blood Ionized Calcium Urine WBC (Auto) 03/19/20 03/19/20 03/19/20 08:05 08:05 11:56 WBC 16.8 H RBC 3.36 L Hgb 9.4 L Hct 28.8 L MCV MCH RDW 17.4 H Plt Count 567 H Lymph % (Auto) 7.8 L Leslie % (Auto) Lymph # (Auto) Leslie # (Auto) 1.2 H Seg Neutrophils % 83.5 H Seg Neuts % (Manual) Lymphocytes % (Manual) Monocytes % (Manual) Basophils % (Manual) Seg Neutrophils # 14.1 H Seg Neutrophils # Man Lymphocytes # (Manual) Monocytes # (Manual) Eosinophils # (Manual) Basophils # (Manual) PT INR D-Dimer ABG pH POC ABG pCO2 POC ABG pO2 ABG pO2 ABG HCO3 ABG O2 Saturation ABG Base Excess ABG Hemoglobin ABG Oxyhemoglobin ABG Potassium ABG Glucose Oxyhemoglobin Carboxyhemoglobin Sodium Potassium Chloride Carbon Dioxide 36 H BUN Creatinine < 0.2 L Glucose 135 H POC Glucose 128 H Calcium Ferritin Total Bilirubin Alkaline Phosphatase Lactate Dehydrogenase Total Creatine Kinase CK-MB (CK-2) Rel Index Troponin T C-Reactive Protein Total Protein Albumin Prealbumin LDL Cholesterol Direct HDL Cholesterol Arterial Blood Glucose Arterial Blood Ionized Calcium Urine WBC (Auto) 03/19/20 03/20/20 03/20/20 23:59 05:12 16:52 WBC RBC Hgb Hct MCV MCH RDW Plt Count Lymph % (Auto) Leslie % (Auto) Lymph # (Auto) Leslie # (Auto) Seg Neutrophils % Seg Neuts % (Manual) Lymphocytes % (Manual) Monocytes % (Manual) Basophils % (Manual) Seg Neutrophils # Seg Neutrophils # Man Lymphocytes # (Manual) Monocytes # (Manual) Eosinophils # (Manual) Basophils # (Manual) PT INR D-Dimer ABG pH POC ABG pCO2 POC ABG pO2 ABG pO2 ABG HCO3 ABG O2 Saturation ABG Base Excess ABG Hemoglobin ABG Oxyhemoglobin ABG Potassium ABG Glucose Oxyhemoglobin Carboxyhemoglobin Sodium Potassium Chloride Carbon Dioxide BUN Creatinine Glucose POC Glucose 120 H 131 H 124 H Calcium Ferritin Total Bilirubin Alkaline Phosphatase Lactate Dehydrogenase Total Creatine Kinase CK-MB (CK-2) Rel Index Troponin T C-Reactive Protein Total Protein Albumin Prealbumin LDL Cholesterol Direct HDL Cholesterol Arterial Blood Glucose Arterial Blood Ionized Calcium Urine WBC (Auto) 03/20/20 03/21/20 03/21/20 23:35 04:50 07:35 WBC 15.2 H RBC 3.39 L Hgb 9.4 L Hct 29.4 L MCV MCH RDW 17.6 H Plt Count 518 H Lymph % (Auto) Leslie % (Auto) Lymph # (Auto) Leslie # (Auto) Seg Neutrophils % Seg Neuts % (Manual) 83.0 H Lymphocytes % (Manual) 10.0 L Monocytes % (Manual) Basophils % (Manual) 2.0 H Seg Neutrophils # Seg Neutrophils # Man 12.6 H Lymphocytes # (Manual) Monocytes # (Manual) Eosinophils # (Manual) Basophils # (Manual) 0.3 H PT INR D-Dimer ABG pH POC ABG pCO2 POC ABG pO2 ABG pO2 ABG HCO3 ABG O2 Saturation ABG Base Excess ABG Hemoglobin ABG Oxyhemoglobin ABG Potassium ABG Glucose Oxyhemoglobin Carboxyhemoglobin Sodium Potassium Chloride Carbon Dioxide BUN Creatinine Glucose POC Glucose 125 H 127 H Calcium Ferritin Total Bilirubin Alkaline Phosphatase Lactate Dehydrogenase Total Creatine Kinase CK-MB (CK-2) Rel Index Troponin T C-Reactive Protein Total Protein Albumin Prealbumin LDL Cholesterol Direct HDL Cholesterol Arterial Blood Glucose Arterial Blood Ionized Calcium Urine WBC (Auto) 03/21/20 03/21/20 03/21/20 07:35 11:45 17:22 WBC RBC Hgb Hct MCV MCH RDW Plt Count Lymph % (Auto) Leslie % (Auto) Lymph # (Auto) Leslie # (Auto) Seg Neutrophils % Seg Neuts % (Manual) Lymphocytes % (Manual) Monocytes % (Manual) Basophils % (Manual) Seg Neutrophils # Seg Neutrophils # Man Lymphocytes # (Manual) Monocytes # (Manual) Eosinophils # (Manual) Basophils # (Manual) PT INR D-Dimer ABG pH POC ABG pCO2 POC ABG pO2 ABG pO2 ABG HCO3 ABG O2 Saturation ABG Base Excess ABG Hemoglobin ABG Oxyhemoglobin ABG Potassium ABG Glucose Oxyhemoglobin Carboxyhemoglobin Sodium 136 L Potassium Chloride 97.7 L Carbon Dioxide 32 H BUN Creatinine < 0.2 L Glucose 103 H POC Glucose 126 H 120 H Calcium Ferritin Total Bilirubin Alkaline Phosphatase Lactate Dehydrogenase Total Creatine Kinase CK-MB (CK-2) Rel Index Troponin T C-Reactive Protein Total Protein Albumin Prealbumin LDL Cholesterol Direct HDL Cholesterol Arterial Blood Glucose Arterial Blood Ionized Calcium Urine WBC (Auto) 03/22/20 03/22/20 03/22/20 05:09 06:34 06:34 WBC 17.5 H RBC 3.52 L Hgb 10.0 L Hct 30.7 L MCV MCH RDW 17.5 H Plt Count 499 H Lymph % (Auto) Leslie % (Auto) Lymph # (Auto) Leslie # (Auto) Seg Neutrophils % Seg Neuts % (Manual) 80.0 H Lymphocytes % (Manual) 10.0 L Monocytes % (Manual) Basophils % (Manual) Seg Neutrophils # Seg Neutrophils # Man 14.0 H Lymphocytes # (Manual) Monocytes # (Manual) Eosinophils # (Manual) Basophils # (Manual) PT INR D-Dimer ABG pH POC ABG pCO2 POC ABG pO2 ABG pO2 ABG HCO3 ABG O2 Saturation ABG Base Excess ABG Hemoglobin ABG Oxyhemoglobin ABG Potassium ABG Glucose Oxyhemoglobin Carboxyhemoglobin Sodium Potassium Chloride 96.6 L Carbon Dioxide 38 H BUN Creatinine < 0.2 L Glucose 139 H POC Glucose 125 H Calcium Ferritin Total Bilirubin Alkaline Phosphatase Lactate Dehydrogenase Total Creatine Kinase CK-MB (CK-2) Rel Index Troponin T C-Reactive Protein Total Protein Albumin Prealbumin LDL Cholesterol Direct HDL Cholesterol Arterial Blood Glucose Arterial Blood Ionized Calcium Urine WBC (Auto) 03/22/20 03/22/20 03/22/20 11:45 18:00 23:32 WBC RBC Hgb Hct MCV MCH RDW Plt Count Lymph % (Auto) Leslie % (Auto) Lymph # (Auto) Leslie # (Auto) Seg Neutrophils % Seg Neuts % (Manual) Lymphocytes % (Manual) Monocytes % (Manual) Basophils % (Manual) Seg Neutrophils # Seg Neutrophils # Man Lymphocytes # (Manual) Monocytes # (Manual) Eosinophils # (Manual) Basophils # (Manual) PT INR D-Dimer ABG pH POC ABG pCO2 POC ABG pO2 ABG pO2 ABG HCO3 ABG O2 Saturation ABG Base Excess ABG Hemoglobin ABG Oxyhemoglobin ABG Potassium ABG Glucose Oxyhemoglobin Carboxyhemoglobin Sodium Potassium Chloride Carbon Dioxide BUN Creatinine Glucose POC Glucose 135 H 133 H Calcium Ferritin Total Bilirubin Alkaline Phosphatase Lactate Dehydrogenase Total Creatine Kinase CK-MB (CK-2) Rel Index Troponin T 0.113 H* C-Reactive Protein Total Protein Albumin Prealbumin LDL Cholesterol Direct HDL Cholesterol Arterial Blood Glucose Arterial Blood Ionized Calcium Urine WBC (Auto) 03/23/20 03/23/20 03/23/20 01:47 06:21 07:57 WBC RBC Hgb Hct MCV MCH RDW Plt Count Lymph % (Auto) Leslie % (Auto) Lymph # (Auto) Leslie # (Auto) Seg Neutrophils % Seg Neuts % (Manual) Lymphocytes % (Manual) Monocytes % (Manual) Basophils % (Manual) Seg Neutrophils # Seg Neutrophils # Man Lymphocytes # (Manual) Monocytes # (Manual) Eosinophils # (Manual) Basophils # (Manual) PT INR D-Dimer ABG pH POC ABG pCO2 POC ABG pO2 ABG pO2 ABG HCO3 ABG O2 Saturation ABG Base Excess ABG Hemoglobin ABG Oxyhemoglobin ABG Potassium ABG Glucose Oxyhemoglobin Carboxyhemoglobin Sodium Potassium Chloride Carbon Dioxide BUN Creatinine Glucose POC Glucose 130 H Calcium Ferritin Total Bilirubin Alkaline Phosphatase Lactate Dehydrogenase Total Creatine Kinase CK-MB (CK-2) Rel Index Troponin T 0.143 H* D 0.105 H* D C-Reactive Protein Total Protein Albumin Prealbumin LDL Cholesterol Direct HDL Cholesterol Arterial Blood Glucose Arterial Blood Ionized Calcium Urine WBC (Auto) 03/23/20 03/24/20 03/24/20 12:02 05:33 07:15 WBC 18.0 H RBC Hgb 11.0 L Hct 34.0 L MCV MCH RDW 17.4 H Plt Count 520 H Lymph % (Auto) Leslie % (Auto) Lymph # (Auto) Leslie # (Auto) Seg Neutrophils % Seg Neuts % (Manual) 88.0 H Lymphocytes % (Manual) 7.0 L Monocytes % (Manual) Basophils % (Manual) Seg Neutrophils # Seg Neutrophils # Man 15.8 H Lymphocytes # (Manual) Monocytes # (Manual) Eosinophils # (Manual) Basophils # (Manual) PT INR D-Dimer ABG pH POC ABG pCO2 POC ABG pO2 ABG pO2 ABG HCO3 ABG O2 Saturation ABG Base Excess ABG Hemoglobin ABG Oxyhemoglobin ABG Potassium ABG Glucose Oxyhemoglobin Carboxyhemoglobin Sodium Potassium Chloride Carbon Dioxide BUN Creatinine Glucose POC Glucose 137 H 112 H Calcium Ferritin Total Bilirubin Alkaline Phosphatase Lactate Dehydrogenase Total Creatine Kinase CK-MB (CK-2) Rel Index Troponin T C-Reactive Protein Total Protein Albumin Prealbumin LDL Cholesterol Direct HDL Cholesterol Arterial Blood Glucose Arterial Blood Ionized Calcium Urine WBC (Auto) 03/24/20 03/24/20 03/24/20 07:15 11:22 23:30 WBC RBC Hgb Hct MCV MCH RDW Plt Count Lymph % (Auto) Leslie % (Auto) Lymph # (Auto) Leslie # (Auto) Seg Neutrophils % Seg Neuts % (Manual) Lymphocytes % (Manual) Monocytes % (Manual) Basophils % (Manual) Seg Neutrophils # Seg Neutrophils # Man Lymphocytes # (Manual) Monocytes # (Manual) Eosinophils # (Manual) Basophils # (Manual) PT INR D-Dimer ABG pH POC ABG pCO2 POC ABG pO2 ABG pO2 ABG HCO3 ABG O2 Saturation ABG Base Excess ABG Hemoglobin ABG Oxyhemoglobin ABG Potassium ABG Glucose Oxyhemoglobin Carboxyhemoglobin Sodium Potassium Chloride 96.6 L Carbon Dioxide 38 H BUN Creatinine < 0.2 L Glucose 141 H POC Glucose 130 H 120 H Calcium Ferritin Total Bilirubin Alkaline Phosphatase Lactate Dehydrogenase Total Creatine Kinase CK-MB (CK-2) Rel Index Troponin T C-Reactive Protein Total Protein Albumin Prealbumin LDL Cholesterol Direct HDL Cholesterol Arterial Blood Glucose Arterial Blood Ionized Calcium Urine WBC (Auto) 03/25/20 03/25/20 03/25/20 05:48 17:53 23:18 WBC RBC Hgb Hct MCV MCH RDW Plt Count Lymph % (Auto) Leslie % (Auto) Lymph # (Auto) Leslie # (Auto) Seg Neutrophils % Seg Neuts % (Manual) Lymphocytes % (Manual) Monocytes % (Manual) Basophils % (Manual) Seg Neutrophils # Seg Neutrophils # Man Lymphocytes # (Manual) Monocytes # (Manual) Eosinophils # (Manual) Basophils # (Manual) PT INR D-Dimer ABG pH POC ABG pCO2 POC ABG pO2 ABG pO2 ABG HCO3 ABG O2 Saturation ABG Base Excess ABG Hemoglobin ABG Oxyhemoglobin ABG Potassium ABG Glucose Oxyhemoglobin Carboxyhemoglobin Sodium Potassium Chloride Carbon Dioxide BUN Creatinine Glucose POC Glucose 124 H 109 H 131 H Calcium Ferritin Total Bilirubin Alkaline Phosphatase Lactate Dehydrogenase Total Creatine Kinase CK-MB (CK-2) Rel Index Troponin T C-Reactive Protein Total Protein Albumin Prealbumin LDL Cholesterol Direct HDL Cholesterol Arterial Blood Glucose Arterial Blood Ionized Calcium Urine WBC (Auto) 03/26/20 03/26/20 03/26/20 05:21 08:49 08:49 WBC 19.7 H RBC Hgb 10.7 L Hct 33.5 L MCV MCH 27 L RDW 17.1 H Plt Count 480 H Lymph % (Auto) 5.7 L Leslie % (Auto) Lymph # (Auto) 1.1 L Leslie # (Auto) 1.2 H Seg Neutrophils % 87.7 H Seg Neuts % (Manual) Lymphocytes % (Manual) Monocytes % (Manual) Basophils % (Manual) Seg Neutrophils # 17.2 H Seg Neutrophils # Man Lymphocytes # (Manual) Monocytes # (Manual) Eosinophils # (Manual) Basophils # (Manual) PT INR D-Dimer ABG pH POC ABG pCO2 POC ABG pO2 ABG pO2 ABG HCO3 ABG O2 Saturation ABG Base Excess ABG Hemoglobin ABG Oxyhemoglobin ABG Potassium ABG Glucose Oxyhemoglobin Carboxyhemoglobin Sodium Potassium Chloride 97.2 L Carbon Dioxide 36 H BUN Creatinine < 0.2 L Glucose 127 H POC Glucose 116 H Calcium Ferritin Total Bilirubin Alkaline Phosphatase Lactate Dehydrogenase Total Creatine Kinase CK-MB (CK-2) Rel Index Troponin T C-Reactive Protein Total Protein Albumin Prealbumin LDL Cholesterol Direct HDL Cholesterol Arterial Blood Glucose Arterial Blood Ionized Calcium Urine WBC (Auto) 03/26/20 03/26/20 03/26/20 11:38 18:44 23:06 WBC RBC Hgb Hct MCV MCH RDW Plt Count Lymph % (Auto) Leslie % (Auto) Lymph # (Auto) Leslie # (Auto) Seg Neutrophils % Seg Neuts % (Manual) Lymphocytes % (Manual) Monocytes % (Manual) Basophils % (Manual) Seg Neutrophils # Seg Neutrophils # Man Lymphocytes # (Manual) Monocytes # (Manual) Eosinophils # (Manual) Basophils # (Manual) PT INR D-Dimer ABG pH POC ABG pCO2 POC ABG pO2 ABG pO2 ABG HCO3 ABG O2 Saturation ABG Base Excess ABG Hemoglobin ABG Oxyhemoglobin ABG Potassium ABG Glucose Oxyhemoglobin Carboxyhemoglobin Sodium Potassium Chloride Carbon Dioxide BUN Creatinine Glucose POC Glucose 120 H 111 H 134 H Calcium Ferritin Total Bilirubin Alkaline Phosphatase Lactate Dehydrogenase Total Creatine Kinase CK-MB (CK-2) Rel Index Troponin T C-Reactive Protein Total Protein Albumin Prealbumin LDL Cholesterol Direct HDL Cholesterol Arterial Blood Glucose Arterial Blood Ionized Calcium Urine WBC (Auto) 03/27/20 03/27/20 03/27/20 05:41 05:59 05:59 WBC 18.6 H RBC Hgb 10.1 L Hct 31.4 L MCV MCH RDW 17.2 H Plt Count Lymph % (Auto) 8.0 L Leslie % (Auto) Lymph # (Auto) Leslie # (Auto) 1.2 H Seg Neutrophils % 84.7 H Seg Neuts % (Manual) Lymphocytes % (Manual) Monocytes % (Manual) Basophils % (Manual) Seg Neutrophils # 15.8 H Seg Neutrophils # Man Lymphocytes # (Manual) Monocytes # (Manual) Eosinophils # (Manual) Basophils # (Manual) PT INR D-Dimer ABG pH POC ABG pCO2 POC ABG pO2 ABG pO2 ABG HCO3 ABG O2 Saturation ABG Base Excess ABG Hemoglobin ABG Oxyhemoglobin ABG Potassium ABG Glucose Oxyhemoglobin Carboxyhemoglobin Sodium Potassium Chloride Carbon Dioxide 34 H BUN Creatinine < 0.2 L Glucose 127 H POC Glucose 129 H Calcium Ferritin Total Bilirubin Alkaline Phosphatase Lactate Dehydrogenase Total Creatine Kinase CK-MB (CK-2) Rel Index Troponin T C-Reactive Protein Total Protein Albumin Prealbumin LDL Cholesterol Direct HDL Cholesterol Arterial Blood Glucose Arterial Blood Ionized Calcium Urine WBC (Auto) 03/27/20 03/27/20 03/28/20 17:28 23:22 05:23 WBC RBC Hgb Hct MCV MCH RDW Plt Count Lymph % (Auto) Leslie % (Auto) Lymph # (Auto) Leslie # (Auto) Seg Neutrophils % Seg Neuts % (Manual) Lymphocytes % (Manual) Monocytes % (Manual) Basophils % (Manual) Seg Neutrophils # Seg Neutrophils # Man Lymphocytes # (Manual) Monocytes # (Manual) Eosinophils # (Manual) Basophils # (Manual) PT INR D-Dimer ABG pH POC ABG pCO2 POC ABG pO2 ABG pO2 ABG HCO3 ABG O2 Saturation ABG Base Excess ABG Hemoglobin ABG Oxyhemoglobin ABG Potassium ABG Glucose Oxyhemoglobin Carboxyhemoglobin Sodium Potassium Chloride Carbon Dioxide BUN Creatinine Glucose POC Glucose 108 H 119 H 129 H Calcium Ferritin Total Bilirubin Alkaline Phosphatase Lactate Dehydrogenase Total Creatine Kinase CK-MB (CK-2) Rel Index Troponin T C-Reactive Protein Total Protein Albumin Prealbumin LDL Cholesterol Direct HDL Cholesterol Arterial Blood Glucose Arterial Blood Ionized Calcium Urine WBC (Auto) 03/28/20 03/28/20 03/28/20 10:28 10:28 11:36 WBC 23.6 H RBC 3.62 L Hgb 10.0 L Hct 30.8 L MCV MCH RDW 16.4 H Plt Count Lymph % (Auto) Leslie % (Auto) Lymph # (Auto) Leslie # (Auto) Seg Neutrophils % Seg Neuts % (Manual) 89.0 H Lymphocytes % (Manual) 5.0 L Monocytes % (Manual) Basophils % (Manual) Seg Neutrophils # Seg Neutrophils # Man 21.0 H Lymphocytes # (Manual) Monocytes # (Manual) 1.2 H Eosinophils # (Manual) Basophils # (Manual) 0.2 H PT INR D-Dimer ABG pH POC ABG pCO2 POC ABG pO2 ABG pO2 ABG HCO3 ABG O2 Saturation ABG Base Excess ABG Hemoglobin ABG Oxyhemoglobin ABG Potassium ABG Glucose Oxyhemoglobin Carboxyhemoglobin Sodium 134 L Potassium Chloride 94.2 L Carbon Dioxide 35 H BUN Creatinine < 0.2 L Glucose 134 H POC Glucose Calcium Ferritin Total Bilirubin Alkaline Phosphatase Lactate Dehydrogenase Total Creatine Kinase CK-MB (CK-2) Rel Index Troponin T C-Reactive Protein Total Protein Albumin Prealbumin LDL Cholesterol Direct HDL Cholesterol Arterial Blood Glucose Arterial Blood Ionized Calcium Urine WBC (Auto) 39.0 H 03/28/20 03/28/20 03/28/20 11:51 17:08 17:17 WBC RBC Hgb Hct MCV MCH RDW Plt Count Lymph % (Auto) Leslie % (Auto) Lymph # (Auto) Leslie # (Auto) Seg Neutrophils % Seg Neuts % (Manual) Lymphocytes % (Manual) Monocytes % (Manual) Basophils % (Manual) Seg Neutrophils # Seg Neutrophils # Man Lymphocytes # (Manual) Monocytes # (Manual) Eosinophils # (Manual) Basophils # (Manual) PT INR D-Dimer ABG pH POC ABG pCO2 POC ABG pO2 ABG pO2 ABG HCO3 ABG O2 Saturation ABG Base Excess ABG Hemoglobin ABG Oxyhemoglobin ABG Potassium ABG Glucose Oxyhemoglobin Carboxyhemoglobin Sodium Potassium Chloride Carbon Dioxide BUN Creatinine Glucose POC Glucose 123 H 112 H Calcium Ferritin Total Bilirubin Alkaline Phosphatase Lactate Dehydrogenase Total Creatine Kinase 47 L CK-MB (CK-2) Rel Index 4.6 H Troponin T 0.090 H C-Reactive Protein Total Protein Albumin Prealbumin LDL Cholesterol Direct HDL Cholesterol Arterial Blood Glucose Arterial Blood Ionized Calcium Urine WBC (Auto) 03/28/20 03/29/20 03/29/20 23:22 05:22 10:58 WBC RBC Hgb Hct MCV MCH RDW Plt Count Lymph % (Auto) Leslie % (Auto) Lymph # (Auto) Leslie # (Auto) Seg Neutrophils % Seg Neuts % (Manual) Lymphocytes % (Manual) Monocytes % (Manual) Basophils % (Manual) Seg Neutrophils # Seg Neutrophils # Man Lymphocytes # (Manual) Monocytes # (Manual) Eosinophils # (Manual) Basophils # (Manual) PT INR D-Dimer ABG pH POC ABG pCO2 POC ABG pO2 ABG pO2 ABG HCO3 ABG O2 Saturation ABG Base Excess ABG Hemoglobin ABG Oxyhemoglobin ABG Potassium ABG Glucose Oxyhemoglobin Carboxyhemoglobin Sodium Potassium Chloride Carbon Dioxide BUN Creatinine Glucose POC Glucose 122 H 116 H 133 H Calcium Ferritin Total Bilirubin Alkaline Phosphatase Lactate Dehydrogenase Total Creatine Kinase CK-MB (CK-2) Rel Index Troponin T C-Reactive Protein Total Protein Albumin Prealbumin LDL Cholesterol Direct HDL Cholesterol Arterial Blood Glucose Arterial Blood Ionized Calcium Urine WBC (Auto) 03/29/20 03/29/20 03/30/20 17:18 23:14 04:57 WBC RBC Hgb Hct MCV MCH RDW Plt Count Lymph % (Auto) Leslie % (Auto) Lymph # (Auto) Leslie # (Auto) Seg Neutrophils % Seg Neuts % (Manual) Lymphocytes % (Manual) Monocytes % (Manual) Basophils % (Manual) Seg Neutrophils # Seg Neutrophils # Man Lymphocytes # (Manual) Monocytes # (Manual) Eosinophils # (Manual) Basophils # (Manual) PT INR D-Dimer ABG pH POC ABG pCO2 POC ABG pO2 ABG pO2 ABG HCO3 ABG O2 Saturation ABG Base Excess ABG Hemoglobin ABG Oxyhemoglobin ABG Potassium ABG Glucose Oxyhemoglobin Carboxyhemoglobin Sodium Potassium Chloride Carbon Dioxide BUN Creatinine Glucose POC Glucose 111 H 114 H 130 H Calcium Ferritin Total Bilirubin Alkaline Phosphatase Lactate Dehydrogenase Total Creatine Kinase CK-MB (CK-2) Rel Index Troponin T C-Reactive Protein Total Protein Albumin Prealbumin LDL Cholesterol Direct HDL Cholesterol Arterial Blood Glucose Arterial Blood Ionized Calcium Urine WBC (Auto) 03/30/20 03/30/20 03/30/20 11:38 14:47 14:47 WBC 19.9 H RBC Hgb 10.9 L Hct 34.4 L MCV MCH 27 L RDW 16.5 H Plt Count 441 H Lymph % (Auto) 6.4 L Leslie % (Auto) Lymph # (Auto) Leslie # (Auto) 1.4 H Seg Neutrophils % 86.1 H Seg Neuts % (Manual) Lymphocytes % (Manual) Monocytes % (Manual) Basophils % (Manual) Seg Neutrophils # 17.1 H Seg Neutrophils # Man Lymphocytes # (Manual) Monocytes # (Manual) Eosinophils # (Manual) Basophils # (Manual) PT INR D-Dimer ABG pH POC ABG pCO2 POC ABG pO2 ABG pO2 ABG HCO3 ABG O2 Saturation ABG Base Excess ABG Hemoglobin ABG Oxyhemoglobin ABG Potassium ABG Glucose Oxyhemoglobin Carboxyhemoglobin Sodium 133 L Potassium Chloride 94.6 L Carbon Dioxide 33 H BUN Creatinine < 0.2 L Glucose 194 H POC Glucose 139 H Calcium Ferritin Total Bilirubin Alkaline Phosphatase Lactate Dehydrogenase Total Creatine Kinase CK-MB (CK-2) Rel Index Troponin T C-Reactive Protein Total Protein Albumin 2.8 L Prealbumin LDL Cholesterol Direct HDL Cholesterol Arterial Blood Glucose Arterial Blood Ionized Calcium Urine WBC (Auto) 03/30/20 03/31/20 03/31/20 17:07 05:02 15:21 WBC RBC Hgb Hct MCV MCH RDW Plt Count Lymph % (Auto) Leslie % (Auto) Lymph # (Auto) Leslie # (Auto) Seg Neutrophils % Seg Neuts % (Manual) Lymphocytes % (Manual) Monocytes % (Manual) Basophils % (Manual) Seg Neutrophils # Seg Neutrophils # Man Lymphocytes # (Manual) Monocytes # (Manual) Eosinophils # (Manual) Basophils # (Manual) PT INR D-Dimer ABG pH POC ABG pCO2 POC ABG pO2 ABG pO2 ABG HCO3 ABG O2 Saturation ABG Base Excess ABG Hemoglobin ABG Oxyhemoglobin ABG Potassium ABG Glucose Oxyhemoglobin Carboxyhemoglobin Sodium Potassium Chloride Carbon Dioxide BUN Creatinine Glucose POC Glucose 163 H 108 H 110 H Calcium Ferritin Total Bilirubin Alkaline Phosphatase Lactate Dehydrogenase Total Creatine Kinase CK-MB (CK-2) Rel Index Troponin T C-Reactive Protein Total Protein Albumin Prealbumin LDL Cholesterol Direct HDL Cholesterol Arterial Blood Glucose Arterial Blood Ionized Calcium Urine WBC (Auto) 03/31/20 03/31/20 04/01/20 17:58 23:19 05:09 WBC RBC Hgb Hct MCV MCH RDW Plt Count Lymph % (Auto) Leslie % (Auto) Lymph # (Auto) Leslie # (Auto) Seg Neutrophils % Seg Neuts % (Manual) Lymphocytes % (Manual) Monocytes % (Manual) Basophils % (Manual) Seg Neutrophils # Seg Neutrophils # Man Lymphocytes # (Manual) Monocytes # (Manual) Eosinophils # (Manual) Basophils # (Manual) PT INR D-Dimer ABG pH POC ABG pCO2 POC ABG pO2 ABG pO2 ABG HCO3 ABG O2 Saturation ABG Base Excess ABG Hemoglobin ABG Oxyhemoglobin ABG Potassium ABG Glucose Oxyhemoglobin Carboxyhemoglobin Sodium Potassium Chloride Carbon Dioxide BUN Creatinine Glucose POC Glucose 110 H 131 H 124 H Calcium Ferritin Total Bilirubin Alkaline Phosphatase Lactate Dehydrogenase Total Creatine Kinase CK-MB (CK-2) Rel Index Troponin T C-Reactive Protein Total Protein Albumin Prealbumin LDL Cholesterol Direct HDL Cholesterol Arterial Blood Glucose Arterial Blood Ionized Calcium Urine WBC (Auto) 04/01/20 04/01/20 04/01/20 11:50 17:01 23:21 WBC RBC Hgb Hct MCV MCH RDW Plt Count Lymph % (Auto) Leslie % (Auto) Lymph # (Auto) Leslie # (Auto) Seg Neutrophils % Seg Neuts % (Manual) Lymphocytes % (Manual) Monocytes % (Manual) Basophils % (Manual) Seg Neutrophils # Seg Neutrophils # Man Lymphocytes # (Manual) Monocytes # (Manual) Eosinophils # (Manual) Basophils # (Manual) PT INR D-Dimer ABG pH POC ABG pCO2 POC ABG pO2 ABG pO2 ABG HCO3 ABG O2 Saturation ABG Base Excess ABG Hemoglobin ABG Oxyhemoglobin ABG Potassium ABG Glucose Oxyhemoglobin Carboxyhemoglobin Sodium Potassium Chloride Carbon Dioxide BUN Creatinine Glucose POC Glucose 136 H 115 H 124 H Calcium Ferritin Total Bilirubin Alkaline Phosphatase Lactate Dehydrogenase Total Creatine Kinase CK-MB (CK-2) Rel Index Troponin T C-Reactive Protein Total Protein Albumin Prealbumin LDL Cholesterol Direct HDL Cholesterol Arterial Blood Glucose Arterial Blood Ionized Calcium Urine WBC (Auto) 04/02/20 04/02/20 04/02/20 05:27 11:58 17:58 WBC RBC Hgb Hct MCV MCH RDW Plt Count Lymph % (Auto) Leslie % (Auto) Lymph # (Auto) Leslie # (Auto) Seg Neutrophils % Seg Neuts % (Manual) Lymphocytes % (Manual) Monocytes % (Manual) Basophils % (Manual) Seg Neutrophils # Seg Neutrophils # Man Lymphocytes # (Manual) Monocytes # (Manual) Eosinophils # (Manual) Basophils # (Manual) PT INR D-Dimer ABG pH POC ABG pCO2 POC ABG pO2 ABG pO2 ABG HCO3 ABG O2 Saturation ABG Base Excess ABG Hemoglobin ABG Oxyhemoglobin ABG Potassium ABG Glucose Oxyhemoglobin Carboxyhemoglobin Sodium Potassium Chloride Carbon Dioxide BUN Creatinine Glucose POC Glucose 117 H 133 H 122 H Calcium Ferritin Total Bilirubin Alkaline Phosphatase Lactate Dehydrogenase Total Creatine Kinase CK-MB (CK-2) Rel Index Troponin T C-Reactive Protein Total Protein Albumin Prealbumin LDL Cholesterol Direct HDL Cholesterol Arterial Blood Glucose Arterial Blood Ionized Calcium Urine WBC (Auto) 04/02/20 04/03/20 04/03/20 23:12 05:11 11:11 WBC RBC Hgb Hct MCV MCH RDW Plt Count Lymph % (Auto) Leslie % (Auto) Lymph # (Auto) Leslie # (Auto) Seg Neutrophils % Seg Neuts % (Manual) Lymphocytes % (Manual) Monocytes % (Manual) Basophils % (Manual) Seg Neutrophils # Seg Neutrophils # Man Lymphocytes # (Manual) Monocytes # (Manual) Eosinophils # (Manual) Basophils # (Manual) PT INR D-Dimer ABG pH POC ABG pCO2 POC ABG pO2 ABG pO2 ABG HCO3 ABG O2 Saturation ABG Base Excess ABG Hemoglobin ABG Oxyhemoglobin ABG Potassium ABG Glucose Oxyhemoglobin Carboxyhemoglobin Sodium Potassium Chloride Carbon Dioxide BUN Creatinine Glucose POC Glucose 130 H 139 H 136 H Calcium Ferritin Total Bilirubin Alkaline Phosphatase Lactate Dehydrogenase Total Creatine Kinase CK-MB (CK-2) Rel Index Troponin T C-Reactive Protein Total Protein Albumin Prealbumin LDL Cholesterol Direct HDL Cholesterol Arterial Blood Glucose Arterial Blood Ionized Calcium Urine WBC (Auto) 04/03/20 04/03/20 04/04/20 16:51 23:25 05:29 WBC RBC Hgb Hct MCV MCH RDW Plt Count Lymph % (Auto) Leslie % (Auto) Lymph # (Auto) Leslie # (Auto) Seg Neutrophils % Seg Neuts % (Manual) Lymphocytes % (Manual) Monocytes % (Manual) Basophils % (Manual) Seg Neutrophils # Seg Neutrophils # Man Lymphocytes # (Manual) Monocytes # (Manual) Eosinophils # (Manual) Basophils # (Manual) PT INR D-Dimer ABG pH POC ABG pCO2 POC ABG pO2 ABG pO2 ABG HCO3 ABG O2 Saturation ABG Base Excess ABG Hemoglobin ABG Oxyhemoglobin ABG Potassium ABG Glucose Oxyhemoglobin Carboxyhemoglobin Sodium Potassium Chloride Carbon Dioxide BUN Creatinine Glucose POC Glucose 118 H 111 H 126 H Calcium Ferritin Total Bilirubin Alkaline Phosphatase Lactate Dehydrogenase Total Creatine Kinase CK-MB (CK-2) Rel Index Troponin T C-Reactive Protein Total Protein Albumin Prealbumin LDL Cholesterol Direct HDL Cholesterol Arterial Blood Glucose Arterial Blood Ionized Calcium Urine WBC (Auto) 04/04/20 04/04/20 04/04/20 11:47 17:41 23:05 WBC RBC Hgb Hct MCV MCH RDW Plt Count Lymph % (Auto) Leslie % (Auto) Lymph # (Auto) Leslie # (Auto) Seg Neutrophils % Seg Neuts % (Manual) Lymphocytes % (Manual) Monocytes % (Manual) Basophils % (Manual) Seg Neutrophils # Seg Neutrophils # Man Lymphocytes # (Manual) Monocytes # (Manual) Eosinophils # (Manual) Basophils # (Manual) PT INR D-Dimer ABG pH POC ABG pCO2 POC ABG pO2 ABG pO2 ABG HCO3 ABG O2 Saturation ABG Base Excess ABG Hemoglobin ABG Oxyhemoglobin ABG Potassium ABG Glucose Oxyhemoglobin Carboxyhemoglobin Sodium Potassium Chloride Carbon Dioxide BUN Creatinine Glucose POC Glucose 123 H 120 H 119 H Calcium Ferritin Total Bilirubin Alkaline Phosphatase Lactate Dehydrogenase Total Creatine Kinase CK-MB (CK-2) Rel Index Troponin T C-Reactive Protein Total Protein Albumin Prealbumin LDL Cholesterol Direct HDL Cholesterol Arterial Blood Glucose Arterial Blood Ionized Calcium Urine WBC (Auto) 04/05/20 04/05/20 04/05/20 05:14 12:16 18:48 WBC RBC Hgb Hct MCV MCH RDW Plt Count Lymph % (Auto) Leslie % (Auto) Lymph # (Auto) Leslie # (Auto) Seg Neutrophils % Seg Neuts % (Manual) Lymphocytes % (Manual) Monocytes % (Manual) Basophils % (Manual) Seg Neutrophils # Seg Neutrophils # Man Lymphocytes # (Manual) Monocytes # (Manual) Eosinophils # (Manual) Basophils # (Manual) PT INR D-Dimer ABG pH POC ABG pCO2 POC ABG pO2 ABG pO2 ABG HCO3 ABG O2 Saturation ABG Base Excess ABG Hemoglobin ABG Oxyhemoglobin ABG Potassium ABG Glucose Oxyhemoglobin Carboxyhemoglobin Sodium Potassium Chloride Carbon Dioxide BUN Creatinine Glucose POC Glucose 123 H 148 H 106 H Calcium Ferritin Total Bilirubin Alkaline Phosphatase Lactate Dehydrogenase Total Creatine Kinase CK-MB (CK-2) Rel Index Troponin T C-Reactive Protein Total Protein Albumin Prealbumin LDL Cholesterol Direct HDL Cholesterol Arterial Blood Glucose Arterial Blood Ionized Calcium Urine WBC (Auto) 04/06/20 04/06/20 04/06/20 00:47 03:26 08:24 WBC RBC Hgb Hct MCV MCH RDW Plt Count Lymph % (Auto) Leslie % (Auto) Lymph # (Auto) Leslie # (Auto) Seg Neutrophils % Seg Neuts % (Manual) Lymphocytes % (Manual) Monocytes % (Manual) Basophils % (Manual) Seg Neutrophils # Seg Neutrophils # Man Lymphocytes # (Manual) Monocytes # (Manual) Eosinophils # (Manual) Basophils # (Manual) PT INR D-Dimer ABG pH POC ABG pCO2 POC ABG pO2 ABG pO2 ABG HCO3 ABG O2 Saturation ABG Base Excess ABG Hemoglobin ABG Oxyhemoglobin ABG Potassium ABG Glucose Oxyhemoglobin Carboxyhemoglobin Sodium Potassium Chloride Carbon Dioxide BUN Creatinine Glucose POC Glucose 129 H 134 H 131 H Calcium Ferritin Total Bilirubin Alkaline Phosphatase Lactate Dehydrogenase Total Creatine Kinase CK-MB (CK-2) Rel Index Troponin T C-Reactive Protein Total Protein Albumin Prealbumin LDL Cholesterol Direct HDL Cholesterol Arterial Blood Glucose Arterial Blood Ionized Calcium Urine WBC (Auto) 04/06/20 04/06/20 04/06/20 11:16 16:27 23:01 WBC RBC Hgb Hct MCV MCH RDW Plt Count Lymph % (Auto) Leslie % (Auto) Lymph # (Auto) Leslie # (Auto) Seg Neutrophils % Seg Neuts % (Manual) Lymphocytes % (Manual) Monocytes % (Manual) Basophils % (Manual) Seg Neutrophils # Seg Neutrophils # Man Lymphocytes # (Manual) Monocytes # (Manual) Eosinophils # (Manual) Basophils # (Manual) PT INR D-Dimer ABG pH POC ABG pCO2 POC ABG pO2 ABG pO2 ABG HCO3 ABG O2 Saturation ABG Base Excess ABG Hemoglobin ABG Oxyhemoglobin ABG Potassium ABG Glucose Oxyhemoglobin Carboxyhemoglobin Sodium Potassium Chloride Carbon Dioxide BUN Creatinine Glucose POC Glucose 131 H 107 H 125 H Calcium Ferritin Total Bilirubin Alkaline Phosphatase Lactate Dehydrogenase Total Creatine Kinase CK-MB (CK-2) Rel Index Troponin T C-Reactive Protein Total Protein Albumin Prealbumin LDL Cholesterol Direct HDL Cholesterol Arterial Blood Glucose Arterial Blood Ionized Calcium Urine WBC (Auto) 04/07/20 04/07/20 04/07/20 05:24 12:41 17:40 WBC RBC Hgb Hct MCV MCH RDW Plt Count Lymph % (Auto) Leslie % (Auto) Lymph # (Auto) Leslie # (Auto) Seg Neutrophils % Seg Neuts % (Manual) Lymphocytes % (Manual) Monocytes % (Manual) Basophils % (Manual) Seg Neutrophils # Seg Neutrophils # Man Lymphocytes # (Manual) Monocytes # (Manual) Eosinophils # (Manual) Basophils # (Manual) PT INR D-Dimer ABG pH POC ABG pCO2 POC ABG pO2 ABG pO2 ABG HCO3 ABG O2 Saturation ABG Base Excess ABG Hemoglobin ABG Oxyhemoglobin ABG Potassium ABG Glucose Oxyhemoglobin Carboxyhemoglobin Sodium Potassium Chloride Carbon Dioxide BUN Creatinine Glucose POC Glucose 125 H 145 H 123 H Calcium Ferritin Total Bilirubin Alkaline Phosphatase Lactate Dehydrogenase Total Creatine Kinase CK-MB (CK-2) Rel Index Troponin T C-Reactive Protein Total Protein Albumin Prealbumin LDL Cholesterol Direct HDL Cholesterol Arterial Blood Glucose Arterial Blood Ionized Calcium Urine WBC (Auto) 04/07/20 04/08/20 04/08/20 23:22 05:40 11:29 WBC RBC Hgb Hct MCV MCH RDW Plt Count Lymph % (Auto) Leslie % (Auto) Lymph # (Auto) Leslie # (Auto) Seg Neutrophils % Seg Neuts % (Manual) Lymphocytes % (Manual) Monocytes % (Manual) Basophils % (Manual) Seg Neutrophils # Seg Neutrophils # Man Lymphocytes # (Manual) Monocytes # (Manual) Eosinophils # (Manual) Basophils # (Manual) PT INR D-Dimer ABG pH POC ABG pCO2 POC ABG pO2 ABG pO2 ABG HCO3 ABG O2 Saturation ABG Base Excess ABG Hemoglobin ABG Oxyhemoglobin ABG Potassium ABG Glucose Oxyhemoglobin Carboxyhemoglobin Sodium Potassium Chloride Carbon Dioxide BUN Creatinine Glucose POC Glucose 133 H 125 H 116 H Calcium Ferritin Total Bilirubin Alkaline Phosphatase Lactate Dehydrogenase Total Creatine Kinase CK-MB (CK-2) Rel Index Troponin T C-Reactive Protein Total Protein Albumin Prealbumin LDL Cholesterol Direct HDL Cholesterol Arterial Blood Glucose Arterial Blood Ionized Calcium Urine WBC (Auto) 04/08/20 04/09/20 04/09/20 17:43 05:47 12:22 WBC RBC Hgb Hct MCV MCH RDW Plt Count Lymph % (Auto) Leslie % (Auto) Lymph # (Auto) Leslie # (Auto) Seg Neutrophils % Seg Neuts % (Manual) Lymphocytes % (Manual) Monocytes % (Manual) Basophils % (Manual) Seg Neutrophils # Seg Neutrophils # Man Lymphocytes # (Manual) Monocytes # (Manual) Eosinophils # (Manual) Basophils # (Manual) PT INR D-Dimer ABG pH POC ABG pCO2 POC ABG pO2 ABG pO2 ABG HCO3 ABG O2 Saturation ABG Base Excess ABG Hemoglobin ABG Oxyhemoglobin ABG Potassium ABG Glucose Oxyhemoglobin Carboxyhemoglobin Sodium Potassium Chloride Carbon Dioxide BUN Creatinine Glucose POC Glucose 123 H 108 H 116 H Calcium Ferritin Total Bilirubin Alkaline Phosphatase Lactate Dehydrogenase Total Creatine Kinase CK-MB (CK-2) Rel Index Troponin T C-Reactive Protein Total Protein Albumin Prealbumin LDL Cholesterol Direct HDL Cholesterol Arterial Blood Glucose Arterial Blood Ionized Calcium Urine WBC (Auto) 04/09/20 04/09/20 04/10/20 17:24 23:52 06:10 WBC RBC Hgb Hct MCV MCH RDW Plt Count Lymph % (Auto) Leslie % (Auto) Lymph # (Auto) Leslie # (Auto) Seg Neutrophils % Seg Neuts % (Manual) Lymphocytes % (Manual) Monocytes % (Manual) Basophils % (Manual) Seg Neutrophils # Seg Neutrophils # Man Lymphocytes # (Manual) Monocytes # (Manual) Eosinophils # (Manual) Basophils # (Manual) PT INR D-Dimer ABG pH POC ABG pCO2 POC ABG pO2 ABG pO2 ABG HCO3 ABG O2 Saturation ABG Base Excess ABG Hemoglobin ABG Oxyhemoglobin ABG Potassium ABG Glucose Oxyhemoglobin Carboxyhemoglobin Sodium Potassium Chloride Carbon Dioxide BUN Creatinine Glucose POC Glucose 108 H 126 H 122 H Calcium Ferritin Total Bilirubin Alkaline Phosphatase Lactate Dehydrogenase Total Creatine Kinase CK-MB (CK-2) Rel Index Troponin T C-Reactive Protein Total Protein Albumin Prealbumin LDL Cholesterol Direct HDL Cholesterol Arterial Blood Glucose Arterial Blood Ionized Calcium Urine WBC (Auto) 04/10/20 04/10/20 04/10/20 11:27 18:11 23:24 WBC RBC Hgb Hct MCV MCH RDW Plt Count Lymph % (Auto) Leslie % (Auto) Lymph # (Auto) Leslie # (Auto) Seg Neutrophils % Seg Neuts % (Manual) Lymphocytes % (Manual) Monocytes % (Manual) Basophils % (Manual) Seg Neutrophils # Seg Neutrophils # Man Lymphocytes # (Manual) Monocytes # (Manual) Eosinophils # (Manual) Basophils # (Manual) PT INR D-Dimer ABG pH POC ABG pCO2 POC ABG pO2 ABG pO2 ABG HCO3 ABG O2 Saturation ABG Base Excess ABG Hemoglobin ABG Oxyhemoglobin ABG Potassium ABG Glucose Oxyhemoglobin Carboxyhemoglobin Sodium Potassium Chloride Carbon Dioxide BUN Creatinine Glucose POC Glucose 129 H 125 H 107 H Calcium Ferritin Total Bilirubin Alkaline Phosphatase Lactate Dehydrogenase Total Creatine Kinase CK-MB (CK-2) Rel Index Troponin T C-Reactive Protein Total Protein Albumin Prealbumin LDL Cholesterol Direct HDL Cholesterol Arterial Blood Glucose Arterial Blood Ionized Calcium Urine WBC (Auto) 04/11/20 04/11/20 04/11/20 05:28 11:46 23:49 WBC RBC Hgb Hct MCV MCH RDW Plt Count Lymph % (Auto) Leslie % (Auto) Lymph # (Auto) Leslie # (Auto) Seg Neutrophils % Seg Neuts % (Manual) Lymphocytes % (Manual) Monocytes % (Manual) Basophils % (Manual) Seg Neutrophils # Seg Neutrophils # Man Lymphocytes # (Manual) Monocytes # (Manual) Eosinophils # (Manual) Basophils # (Manual) PT INR D-Dimer ABG pH POC ABG pCO2 POC ABG pO2 ABG pO2 ABG HCO3 ABG O2 Saturation ABG Base Excess ABG Hemoglobin ABG Oxyhemoglobin ABG Potassium ABG Glucose Oxyhemoglobin Carboxyhemoglobin Sodium Potassium Chloride Carbon Dioxide BUN Creatinine Glucose POC Glucose 122 H 122 H 116 H Calcium Ferritin Total Bilirubin Alkaline Phosphatase Lactate Dehydrogenase Total Creatine Kinase CK-MB (CK-2) Rel Index Troponin T C-Reactive Protein Total Protein Albumin Prealbumin LDL Cholesterol Direct HDL Cholesterol Arterial Blood Glucose Arterial Blood Ionized Calcium Urine WBC (Auto) 04/12/20 04/12/20 04/12/20 09:07 09:07 11:39 WBC 13.1 H RBC 3.59 L Hgb 9.5 L Hct 29.8 L MCV 83 L MCH 26 L RDW 16.6 H Plt Count 591 H Lymph % (Auto) Leslie % (Auto) Lymph # (Auto) Leslie # (Auto) Seg Neutrophils % Seg Neuts % (Manual) 86.0 H Lymphocytes % (Manual) 7.0 L Monocytes % (Manual) Basophils % (Manual) Seg Neutrophils # Seg Neutrophils # Man 11.3 H Lymphocytes # (Manual) 0.9 L Monocytes # (Manual) Eosinophils # (Manual) Basophils # (Manual) PT INR D-Dimer ABG pH POC ABG pCO2 POC ABG pO2 ABG pO2 ABG HCO3 ABG O2 Saturation ABG Base Excess ABG Hemoglobin ABG Oxyhemoglobin ABG Potassium ABG Glucose Oxyhemoglobin Carboxyhemoglobin Sodium Potassium Chloride Carbon Dioxide 36 H BUN Creatinine < 0.2 L Glucose 132 H POC Glucose 136 H Calcium Ferritin Total Bilirubin Alkaline Phosphatase Lactate Dehydrogenase Total Creatine Kinase CK-MB (CK-2) Rel Index Troponin T C-Reactive Protein Total Protein Albumin 2.7 L Prealbumin LDL Cholesterol Direct HDL Cholesterol Arterial Blood Glucose Arterial Blood Ionized Calcium Urine WBC (Auto) 04/12/20 04/12/20 04/13/20 18:13 23:07 05:45 WBC RBC Hgb Hct MCV MCH RDW Plt Count Lymph % (Auto) Leslie % (Auto) Lymph # (Auto) Leslie # (Auto) Seg Neutrophils % Seg Neuts % (Manual) Lymphocytes % (Manual) Monocytes % (Manual) Basophils % (Manual) Seg Neutrophils # Seg Neutrophils # Man Lymphocytes # (Manual) Monocytes # (Manual) Eosinophils # (Manual) Basophils # (Manual) PT INR D-Dimer ABG pH POC ABG pCO2 POC ABG pO2 ABG pO2 ABG HCO3 ABG O2 Saturation ABG Base Excess ABG Hemoglobin ABG Oxyhemoglobin ABG Potassium ABG Glucose Oxyhemoglobin Carboxyhemoglobin Sodium Potassium Chloride Carbon Dioxide BUN Creatinine Glucose POC Glucose 107 H 106 H 125 H Calcium Ferritin Total Bilirubin Alkaline Phosphatase Lactate Dehydrogenase Total Creatine Kinase CK-MB (CK-2) Rel Index Troponin T C-Reactive Protein Total Protein Albumin Prealbumin LDL Cholesterol Direct HDL Cholesterol Arterial Blood Glucose Arterial Blood Ionized Calcium Urine WBC (Auto) 04/13/20 04/13/20 04/13/20 11:18 17:56 23:33 WBC RBC Hgb Hct MCV MCH RDW Plt Count Lymph % (Auto) Leslie % (Auto) Lymph # (Auto) Leslie # (Auto) Seg Neutrophils % Seg Neuts % (Manual) Lymphocytes % (Manual) Monocytes % (Manual) Basophils % (Manual) Seg Neutrophils # Seg Neutrophils # Man Lymphocytes # (Manual) Monocytes # (Manual) Eosinophils # (Manual) Basophils # (Manual) PT INR D-Dimer ABG pH POC ABG pCO2 POC ABG pO2 ABG pO2 ABG HCO3 ABG O2 Saturation ABG Base Excess ABG Hemoglobin ABG Oxyhemoglobin ABG Potassium ABG Glucose Oxyhemoglobin Carboxyhemoglobin Sodium Potassium Chloride Carbon Dioxide BUN Creatinine Glucose POC Glucose 133 H 110 H 114 H Calcium Ferritin Total Bilirubin Alkaline Phosphatase Lactate Dehydrogenase Total Creatine Kinase CK-MB (CK-2) Rel Index Troponin T C-Reactive Protein Total Protein Albumin Prealbumin LDL Cholesterol Direct HDL Cholesterol Arterial Blood Glucose Arterial Blood Ionized Calcium Urine WBC (Auto) 04/14/20 04/14/20 04/14/20 05:58 11:45 17:48 WBC RBC Hgb Hct MCV MCH RDW Plt Count Lymph % (Auto) Leslie % (Auto) Lymph # (Auto) Leslie # (Auto) Seg Neutrophils % Seg Neuts % (Manual) Lymphocytes % (Manual) Monocytes % (Manual) Basophils % (Manual) Seg Neutrophils # Seg Neutrophils # Man Lymphocytes # (Manual) Monocytes # (Manual) Eosinophils # (Manual) Basophils # (Manual) PT INR D-Dimer ABG pH POC ABG pCO2 POC ABG pO2 ABG pO2 ABG HCO3 ABG O2 Saturation ABG Base Excess ABG Hemoglobin ABG Oxyhemoglobin ABG Potassium ABG Glucose Oxyhemoglobin Carboxyhemoglobin Sodium Potassium Chloride Carbon Dioxide BUN Creatinine Glucose POC Glucose 115 H 122 H 124 H Calcium Ferritin Total Bilirubin Alkaline Phosphatase Lactate Dehydrogenase Total Creatine Kinase CK-MB (CK-2) Rel Index Troponin T C-Reactive Protein Total Protein Albumin Prealbumin LDL Cholesterol Direct HDL Cholesterol Arterial Blood Glucose Arterial Blood Ionized Calcium Urine WBC (Auto) 04/15/20 04/15/20 04/15/20 00:11 05:38 11:31 WBC RBC Hgb Hct MCV MCH RDW Plt Count Lymph % (Auto) Leslie % (Auto) Lymph # (Auto) Leslie # (Auto) Seg Neutrophils % Seg Neuts % (Manual) Lymphocytes % (Manual) Monocytes % (Manual) Basophils % (Manual) Seg Neutrophils # Seg Neutrophils # Man Lymphocytes # (Manual) Monocytes # (Manual) Eosinophils # (Manual) Basophils # (Manual) PT INR D-Dimer ABG pH POC ABG pCO2 POC ABG pO2 ABG pO2 ABG HCO3 ABG O2 Saturation ABG Base Excess ABG Hemoglobin ABG Oxyhemoglobin ABG Potassium ABG Glucose Oxyhemoglobin Carboxyhemoglobin Sodium Potassium Chloride Carbon Dioxide BUN Creatinine Glucose POC Glucose 120 H 109 H 123 H Calcium Ferritin Total Bilirubin Alkaline Phosphatase Lactate Dehydrogenase Total Creatine Kinase CK-MB (CK-2) Rel Index Troponin T C-Reactive Protein Total Protein Albumin Prealbumin LDL Cholesterol Direct HDL Cholesterol Arterial Blood Glucose Arterial Blood Ionized Calcium Urine WBC (Auto) 04/15/20 04/16/20 04/16/20 17:35 06:00 11:29 WBC RBC Hgb Hct MCV MCH RDW Plt Count Lymph % (Auto) Leslie % (Auto) Lymph # (Auto) Leslie # (Auto) Seg Neutrophils % Seg Neuts % (Manual) Lymphocytes % (Manual) Monocytes % (Manual) Basophils % (Manual) Seg Neutrophils # Seg Neutrophils # Man Lymphocytes # (Manual) Monocytes # (Manual) Eosinophils # (Manual) Basophils # (Manual) PT INR D-Dimer ABG pH POC ABG pCO2 POC ABG pO2 ABG pO2 ABG HCO3 ABG O2 Saturation ABG Base Excess ABG Hemoglobin ABG Oxyhemoglobin ABG Potassium ABG Glucose Oxyhemoglobin Carboxyhemoglobin Sodium Potassium Chloride Carbon Dioxide BUN Creatinine Glucose POC Glucose 111 H 142 H 108 H Calcium Ferritin Total Bilirubin Alkaline Phosphatase Lactate Dehydrogenase Total Creatine Kinase CK-MB (CK-2) Rel Index Troponin T C-Reactive Protein Total Protein Albumin Prealbumin LDL Cholesterol Direct HDL Cholesterol Arterial Blood Glucose Arterial Blood Ionized Calcium Urine WBC (Auto) 04/17/20 04/17/20 04/17/20 05:09 06:53 06:53 WBC 14.2 H RBC Hgb 10.1 L Hct 31.5 L MCV MCH 27 L RDW 17.2 H Plt Count 643 H Lymph % (Auto) Leslie % (Auto) Lymph # (Auto) Leslie # (Auto) Seg Neutrophils % Seg Neuts % (Manual) Lymphocytes % (Manual) Monocytes % (Manual) Basophils % (Manual) Seg Neutrophils # Seg Neutrophils # Man Lymphocytes # (Manual) Monocytes # (Manual) Eosinophils # (Manual) Basophils # (Manual) PT INR D-Dimer ABG pH POC ABG pCO2 POC ABG pO2 ABG pO2 ABG HCO3 ABG O2 Saturation ABG Base Excess ABG Hemoglobin ABG Oxyhemoglobin ABG Potassium ABG Glucose Oxyhemoglobin Carboxyhemoglobin Sodium Potassium Chloride 97.7 L Carbon Dioxide 38 H BUN Creatinine < 0.2 L Glucose 126 H POC Glucose 131 H Calcium Ferritin Total Bilirubin Alkaline Phosphatase Lactate Dehydrogenase Total Creatine Kinase CK-MB (CK-2) Rel Index Troponin T C-Reactive Protein Total Protein Albumin Prealbumin LDL Cholesterol Direct HDL Cholesterol Arterial Blood Glucose Arterial Blood Ionized Calcium Urine WBC (Auto) 04/17/20 04/18/20 04/18/20 11:21 00:23 04:01 WBC 15.3 H RBC Hgb 10.1 L Hct 31.9 L MCV 82 L MCH 26 L RDW 17.2 H Plt Count 665 H Lymph % (Auto) 12.9 L Leslie % (Auto) Lymph # (Auto) Leslie # (Auto) 1.1 H Seg Neutrophils % 78.0 H Seg Neuts % (Manual) Lymphocytes % (Manual) Monocytes % (Manual) Basophils % (Manual) Seg Neutrophils # 11.9 H Seg Neutrophils # Man Lymphocytes # (Manual) Monocytes # (Manual) Eosinophils # (Manual) Basophils # (Manual) PT INR D-Dimer ABG pH POC ABG pCO2 POC ABG pO2 ABG pO2 ABG HCO3 ABG O2 Saturation ABG Base Excess ABG Hemoglobin ABG Oxyhemoglobin ABG Potassium ABG Glucose Oxyhemoglobin Carboxyhemoglobin Sodium Potassium Chloride Carbon Dioxide BUN Creatinine Glucose POC Glucose 140 H 125 H Calcium Ferritin Total Bilirubin Alkaline Phosphatase Lactate Dehydrogenase Total Creatine Kinase CK-MB (CK-2) Rel Index Troponin T C-Reactive Protein Total Protein Albumin Prealbumin LDL Cholesterol Direct HDL Cholesterol Arterial Blood Glucose Arterial Blood Ionized Calcium Urine WBC (Auto) 04/18/20 04/18/20 04/18/20 04:01 11:29 17:30 WBC RBC Hgb Hct MCV MCH RDW Plt Count Lymph % (Auto) Leslie % (Auto) Lymph # (Auto) Leslie # (Auto) Seg Neutrophils % Seg Neuts % (Manual) Lymphocytes % (Manual) Monocytes % (Manual) Basophils % (Manual) Seg Neutrophils # Seg Neutrophils # Man Lymphocytes # (Manual) Monocytes # (Manual) Eosinophils # (Manual) Basophils # (Manual) PT INR D-Dimer ABG pH POC ABG pCO2 POC ABG pO2 ABG pO2 ABG HCO3 ABG O2 Saturation ABG Base Excess ABG Hemoglobin ABG Oxyhemoglobin ABG Potassium ABG Glucose Oxyhemoglobin Carboxyhemoglobin Sodium Potassium Chloride 97.0 L Carbon Dioxide 38 H BUN Creatinine < 0.2 L Glucose 117 H POC Glucose 136 H 107 H Calcium Ferritin Total Bilirubin Alkaline Phosphatase Lactate Dehydrogenase Total Creatine Kinase CK-MB (CK-2) Rel Index Troponin T C-Reactive Protein Total Protein Albumin Prealbumin LDL Cholesterol Direct HDL Cholesterol Arterial Blood Glucose Arterial Blood Ionized Calcium Urine WBC (Auto) 04/18/20 04/19/20 04/19/20 23:19 06:51 06:51 WBC 12.2 H RBC Hgb 9.8 L Hct 31.1 L MCV 82 L MCH 26 L RDW 17.2 H Plt Count 549 H Lymph % (Auto) 6.5 L Leslie % (Auto) Lymph # (Auto) 0.8 L Leslie # (Auto) Seg Neutrophils % 86.7 H Seg Neuts % (Manual) Lymphocytes % (Manual) Monocytes % (Manual) Basophils % (Manual) Seg Neutrophils # 10.6 H Seg Neutrophils # Man Lymphocytes # (Manual) Monocytes # (Manual) Eosinophils # (Manual) Basophils # (Manual) PT INR D-Dimer ABG pH POC ABG pCO2 POC ABG pO2 ABG pO2 ABG HCO3 ABG O2 Saturation ABG Base Excess ABG Hemoglobin ABG Oxyhemoglobin ABG Potassium ABG Glucose Oxyhemoglobin Carboxyhemoglobin Sodium Potassium Chloride 97.8 L Carbon Dioxide 38 H BUN Creatinine < 0.2 L Glucose 123 H POC Glucose 127 H Calcium Ferritin Total Bilirubin Alkaline Phosphatase Lactate Dehydrogenase Total Creatine Kinase CK-MB (CK-2) Rel Index Troponin T C-Reactive Protein Total Protein Albumin Prealbumin LDL Cholesterol Direct HDL Cholesterol Arterial Blood Glucose Arterial Blood Ionized Calcium Urine WBC (Auto) 04/19/20 04/19/20 04/20/20 13:41 18:33 05:56 WBC RBC Hgb Hct MCV MCH RDW Plt Count Lymph % (Auto) Leslie % (Auto) Lymph # (Auto) Leslie # (Auto) Seg Neutrophils % Seg Neuts % (Manual) Lymphocytes % (Manual) Monocytes % (Manual) Basophils % (Manual) Seg Neutrophils # Seg Neutrophils # Man Lymphocytes # (Manual) Monocytes # (Manual) Eosinophils # (Manual) Basophils # (Manual) PT INR D-Dimer ABG pH POC ABG pCO2 POC ABG pO2 ABG pO2 ABG HCO3 ABG O2 Saturation ABG Base Excess ABG Hemoglobin ABG Oxyhemoglobin ABG Potassium ABG Glucose Oxyhemoglobin Carboxyhemoglobin Sodium Potassium Chloride Carbon Dioxide BUN Creatinine Glucose POC Glucose 116 H 124 H 130 H Calcium Ferritin Total Bilirubin Alkaline Phosphatase Lactate Dehydrogenase Total Creatine Kinase CK-MB (CK-2) Rel Index Troponin T C-Reactive Protein Total Protein Albumin Prealbumin LDL Cholesterol Direct HDL Cholesterol Arterial Blood Glucose Arterial Blood Ionized Calcium Urine WBC (Auto) 04/20/20 04/20/20 04/20/20 06:28 06:28 11:46 WBC RBC Hgb 10.2 L Hct 31.5 L MCV 82 L MCH 27 L RDW 17.1 H Plt Count 546 H Lymph % (Auto) 10.0 L Leslie % (Auto) 9.8 H Lymph # (Auto) 1.1 L Leslie # (Auto) 1.1 H Seg Neutrophils % 78.4 H Seg Neuts % (Manual) Lymphocytes % (Manual) Monocytes % (Manual) Basophils % (Manual) Seg Neutrophils # 8.5 H Seg Neutrophils # Man Lymphocytes # (Manual) Monocytes # (Manual) Eosinophils # (Manual) Basophils # (Manual) PT INR D-Dimer ABG pH POC ABG pCO2 POC ABG pO2 ABG pO2 ABG HCO3 ABG O2 Saturation ABG Base Excess ABG Hemoglobin ABG Oxyhemoglobin ABG Potassium ABG Glucose Oxyhemoglobin Carboxyhemoglobin Sodium Potassium Chloride 97.0 L Carbon Dioxide 38 H BUN Creatinine < 0.2 L Glucose 138 H POC Glucose 130 H Calcium Ferritin Total Bilirubin Alkaline Phosphatase Lactate Dehydrogenase Total Creatine Kinase CK-MB (CK-2) Rel Index Troponin T C-Reactive Protein Total Protein Albumin Prealbumin LDL Cholesterol Direct HDL Cholesterol Arterial Blood Glucose Arterial Blood Ionized Calcium Urine WBC (Auto) 04/20/20 04/21/20 04/21/20 23:31 05:55 05:55 WBC RBC Hgb 10.0 L Hct 31.1 L MCV 82 L MCH 26 L RDW 17.0 H Plt Count 535 H Lymph % (Auto) Leslie % (Auto) 9.2 H Lymph # (Auto) 1.1 L Leslie # (Auto) Seg Neutrophils % 75.4 H Seg Neuts % (Manual) Lymphocytes % (Manual) Monocytes % (Manual) Basophils % (Manual) Seg Neutrophils # Seg Neutrophils # Man Lymphocytes # (Manual) Monocytes # (Manual) Eosinophils # (Manual) Basophils # (Manual) PT INR D-Dimer ABG pH POC ABG pCO2 POC ABG pO2 ABG pO2 ABG HCO3 ABG O2 Saturation ABG Base Excess ABG Hemoglobin ABG Oxyhemoglobin ABG Potassium ABG Glucose Oxyhemoglobin Carboxyhemoglobin Sodium Potassium Chloride 95.0 L Carbon Dioxide 34 H BUN Creatinine < 0.2 L Glucose 125 H POC Glucose 116 H Calcium Ferritin Total Bilirubin Alkaline Phosphatase Lactate Dehydrogenase Total Creatine Kinase CK-MB (CK-2) Rel Index Troponin T C-Reactive Protein Total Protein Albumin Prealbumin LDL Cholesterol Direct HDL Cholesterol Arterial Blood Glucose Arterial Blood Ionized Calcium Urine WBC (Auto) 04/22/20 04/22/20 04/22/20 00:01 07:45 07:45 WBC RBC Hgb 10.0 L Hct 30.7 L MCV 81 L MCH 27 L RDW 17.1 H Plt Count 490 H Lymph % (Auto) Leslie % (Auto) Lymph # (Auto) Leslie # (Auto) Seg Neutrophils % Seg Neuts % (Manual) 75.0 H Lymphocytes % (Manual) 11.0 L Monocytes % (Manual) 9.0 H Basophils % (Manual) Seg Neutrophils # Seg Neutrophils # Man Lymphocytes # (Manual) 0.8 L Monocytes # (Manual) Eosinophils # (Manual) Basophils # (Manual) PT INR D-Dimer ABG pH POC ABG pCO2 POC ABG pO2 ABG pO2 ABG HCO3 ABG O2 Saturation ABG Base Excess ABG Hemoglobin ABG Oxyhemoglobin ABG Potassium ABG Glucose Oxyhemoglobin Carboxyhemoglobin Sodium Potassium Chloride 96.3 L Carbon Dioxide 40 H BUN Creatinine < 0.2 L Glucose 109 H POC Glucose 110 H Calcium Ferritin Total Bilirubin Alkaline Phosphatase Lactate Dehydrogenase Total Creatine Kinase CK-MB (CK-2) Rel Index Troponin T C-Reactive Protein Total Protein Albumin Prealbumin LDL Cholesterol Direct HDL Cholesterol Arterial Blood Glucose Arterial Blood Ionized Calcium Urine WBC (Auto) 04/23/20 04/23/20 04/23/20 04:28 04:28 04:28 WBC RBC 3.64 L Hgb 9.7 L Hct 29.4 L MCV 81 L MCH 27 L RDW 17.2 H Plt Count 527 H Lymph % (Auto) Leslie % (Auto) 8.9 H Lymph # (Auto) Leslie # (Auto) Seg Neutrophils % Seg Neuts % (Manual) Lymphocytes % (Manual) Monocytes % (Manual) Basophils % (Manual) Seg Neutrophils # Seg Neutrophils # Man Lymphocytes # (Manual) Monocytes # (Manual) Eosinophils # (Manual) Basophils # (Manual) PT INR D-Dimer ABG pH POC ABG pCO2 POC ABG pO2 ABG pO2 ABG HCO3 ABG O2 Saturation ABG Base Excess ABG Hemoglobin ABG Oxyhemoglobin ABG Potassium ABG Glucose Oxyhemoglobin Carboxyhemoglobin Sodium Potassium Chloride 96.4 L Carbon Dioxide 32 H D BUN Creatinine < 0.2 L Glucose 134 H POC Glucose Calcium Ferritin Total Bilirubin Alkaline Phosphatase Lactate Dehydrogenase Total Creatine Kinase CK-MB (CK-2) Rel Index Troponin T 0.151 H* C-Reactive Protein Total Protein Albumin Prealbumin LDL Cholesterol Direct HDL Cholesterol 29 L Arterial Blood Glucose Arterial Blood Ionized Calcium Urine WBC (Auto) 04/23/20 04/23/20 04/24/20 06:03 23:41 05:28 WBC RBC 3.56 L Hgb 9.5 L Hct 28.9 L MCV 81 L MCH 27 L RDW 17.4 H Plt Count 462 H Lymph % (Auto) Leslie % (Auto) Lymph # (Auto) Leslie # (Auto) Seg Neutrophils % Seg Neuts % (Manual) 80.0 H Lymphocytes % (Manual) Monocytes % (Manual) Basophils % (Manual) Seg Neutrophils # Seg Neutrophils # Man Lymphocytes # (Manual) Monocytes # (Manual) Eosinophils # (Manual) Basophils # (Manual) PT INR D-Dimer ABG pH POC ABG pCO2 POC ABG pO2 ABG pO2 ABG HCO3 ABG O2 Saturation ABG Base Excess ABG Hemoglobin ABG Oxyhemoglobin ABG Potassium ABG Glucose Oxyhemoglobin Carboxyhemoglobin Sodium Potassium Chloride Carbon Dioxide BUN Creatinine Glucose POC Glucose 132 H 117 H Calcium Ferritin Total Bilirubin Alkaline Phosphatase Lactate Dehydrogenase Total Creatine Kinase CK-MB (CK-2) Rel Index Troponin T C-Reactive Protein Total Protein Albumin Prealbumin LDL Cholesterol Direct HDL Cholesterol Arterial Blood Glucose Arterial Blood Ionized Calcium Urine WBC (Auto) 04/24/20 04/24/20 04/24/20 05:28 05:28 05:33 WBC RBC Hgb Hct MCV MCH RDW Plt Count Lymph % (Auto) Leslie % (Auto) Lymph # (Auto) Leslie # (Auto) Seg Neutrophils % Seg Neuts % (Manual) Lymphocytes % (Manual) Monocytes % (Manual) Basophils % (Manual) Seg Neutrophils # Seg Neutrophils # Man Lymphocytes # (Manual) Monocytes # (Manual) Eosinophils # (Manual) Basophils # (Manual) PT INR D-Dimer ABG pH POC ABG pCO2 POC ABG pO2 ABG pO2 ABG HCO3 ABG O2 Saturation ABG Base Excess ABG Hemoglobin ABG Oxyhemoglobin ABG Potassium ABG Glucose Oxyhemoglobin Carboxyhemoglobin Sodium Potassium Chloride 96.1 L Carbon Dioxide 40 H D BUN Creatinine < 0.2 L Glucose 115 H POC Glucose 109 H Calcium Ferritin Total Bilirubin Alkaline Phosphatase Lactate Dehydrogenase Total Creatine Kinase CK-MB (CK-2) Rel Index Troponin T 0.181 H* C-Reactive Protein Total Protein Albumin Prealbumin LDL Cholesterol Direct HDL Cholesterol Arterial Blood Glucose Arterial Blood Ionized Calcium Urine WBC (Auto) 04/24/20 04/24/20 04/25/20 11:17 18:23 00:12 WBC RBC Hgb Hct MCV MCH RDW Plt Count Lymph % (Auto) Leslie % (Auto) Lymph # (Auto) Leslie # (Auto) Seg Neutrophils % Seg Neuts % (Manual) Lymphocytes % (Manual) Monocytes % (Manual) Basophils % (Manual) Seg Neutrophils # Seg Neutrophils # Man Lymphocytes # (Manual) Monocytes # (Manual) Eosinophils # (Manual) Basophils # (Manual) PT INR D-Dimer ABG pH POC ABG pCO2 POC ABG pO2 ABG pO2 ABG HCO3 ABG O2 Saturation ABG Base Excess ABG Hemoglobin ABG Oxyhemoglobin ABG Potassium ABG Glucose Oxyhemoglobin Carboxyhemoglobin Sodium Potassium Chloride Carbon Dioxide BUN Creatinine Glucose POC Glucose 117 H 109 H 113 H Calcium Ferritin Total Bilirubin Alkaline Phosphatase Lactate Dehydrogenase Total Creatine Kinase CK-MB (CK-2) Rel Index Troponin T C-Reactive Protein Total Protein Albumin Prealbumin LDL Cholesterol Direct HDL Cholesterol Arterial Blood Glucose Arterial Blood Ionized Calcium Urine WBC (Auto) 04/25/20 04/25/20 04/25/20 06:34 06:34 11:28 WBC 11.7 H RBC Hgb 10.0 L Hct 31.7 L MCV 82 L MCH 26 L RDW 17.5 H Plt Count 564 H Lymph % (Auto) Leslie % (Auto) Lymph # (Auto) Leslie # (Auto) Seg Neutrophils % Seg Neuts % (Manual) 78.0 H Lymphocytes % (Manual) 10.0 L Monocytes % (Manual) 9.0 H Basophils % (Manual) Seg Neutrophils # Seg Neutrophils # Man 9.1 H Lymphocytes # (Manual) Monocytes # (Manual) 1.1 H Eosinophils # (Manual) Basophils # (Manual) PT INR D-Dimer ABG pH POC ABG pCO2 POC ABG pO2 ABG pO2 ABG HCO3 ABG O2 Saturation ABG Base Excess ABG Hemoglobin ABG Oxyhemoglobin ABG Potassium ABG Glucose Oxyhemoglobin Carboxyhemoglobin Sodium Potassium Chloride Carbon Dioxide 39 H BUN Creatinine < 0.2 L Glucose 103 H POC Glucose 112 H Calcium Ferritin Total Bilirubin Alkaline Phosphatase Lactate Dehydrogenase Total Creatine Kinase CK-MB (CK-2) Rel Index Troponin T C-Reactive Protein Total Protein Albumin Prealbumin LDL Cholesterol Direct HDL Cholesterol Arterial Blood Glucose Arterial Blood Ionized Calcium Urine WBC (Auto) 04/27/20 04/27/20 04/27/20 11:48 17:08 23:31 WBC RBC Hgb Hct MCV MCH RDW Plt Count Lymph % (Auto) Leslie % (Auto) Lymph # (Auto) Leslie # (Auto) Seg Neutrophils % Seg Neuts % (Manual) Lymphocytes % (Manual) Monocytes % (Manual) Basophils % (Manual) Seg Neutrophils # Seg Neutrophils # Man Lymphocytes # (Manual) Monocytes # (Manual) Eosinophils # (Manual) Basophils # (Manual) PT INR D-Dimer ABG pH POC ABG pCO2 POC ABG pO2 ABG pO2 ABG HCO3 ABG O2 Saturation ABG Base Excess ABG Hemoglobin ABG Oxyhemoglobin ABG Potassium ABG Glucose Oxyhemoglobin Carboxyhemoglobin Sodium Potassium Chloride Carbon Dioxide BUN Creatinine Glucose POC Glucose 124 H 118 H 122 H Calcium Ferritin Total Bilirubin Alkaline Phosphatase Lactate Dehydrogenase Total Creatine Kinase CK-MB (CK-2) Rel Index Troponin T C-Reactive Protein Total Protein Albumin Prealbumin LDL Cholesterol Direct HDL Cholesterol Arterial Blood Glucose Arterial Blood Ionized Calcium Urine WBC (Auto) 04/28/20 04/29/2021 05:42 00:14 05:30 WBC RBC Hgb Hct MCV MCH RDW Plt Count Lymph % (Auto) Leslie % (Auto) Lymph # (Auto) Leslie # (Auto) Seg Neutrophils % Seg Neuts % (Manual) Lymphocytes % (Manual) Monocytes % (Manual) Basophils % (Manual) Seg Neutrophils # Seg Neutrophils # Man Lymphocytes # (Manual) Monocytes # (Manual) Eosinophils # (Manual) Basophils # (Manual) PT INR D-Dimer ABG pH POC ABG pCO2 POC ABG pO2 ABG pO2 ABG HCO3 ABG O2 Saturation ABG Base Excess ABG Hemoglobin ABG Oxyhemoglobin ABG Potassium ABG Glucose Oxyhemoglobin Carboxyhemoglobin Sodium Potassium Chloride Carbon Dioxide BUN Creatinine Glucose POC Glucose 122 H 115 H 123 H Calcium Ferritin Total Bilirubin Alkaline Phosphatase Lactate Dehydrogenase Total Creatine Kinase CK-MB (CK-2) Rel Index Troponin T C-Reactive Protein Total Protein Albumin Prealbumin LDL Cholesterol Direct HDL Cholesterol Arterial Blood Glucose Arterial Blood Ionized Calcium Urine WBC (Auto) 04/30/20 05/01/20 05/01/20 00:29 05:39 12:30 WBC RBC Hgb Hct MCV MCH RDW Plt Count Lymph % (Auto) Leslie % (Auto) Lymph # (Auto) Leslie # (Auto) Seg Neutrophils % Seg Neuts % (Manual) Lymphocytes % (Manual) Monocytes % (Manual) Basophils % (Manual) Seg Neutrophils # Seg Neutrophils # Man Lymphocytes # (Manual) Monocytes # (Manual) Eosinophils # (Manual) Basophils # (Manual) PT INR D-Dimer ABG pH POC ABG pCO2 POC ABG pO2 ABG pO2 ABG HCO3 ABG O2 Saturation ABG Base Excess ABG Hemoglobin ABG Oxyhemoglobin ABG Potassium ABG Glucose Oxyhemoglobin Carboxyhemoglobin Sodium Potassium Chloride Carbon Dioxide BUN Creatinine Glucose POC Glucose 106 H 109 H 108 H Calcium Ferritin Total Bilirubin Alkaline Phosphatase Lactate Dehydrogenase Total Creatine Kinase CK-MB (CK-2) Rel Index Troponin T C-Reactive Protein Total Protein Albumin Prealbumin LDL Cholesterol Direct HDL Cholesterol Arterial Blood Glucose Arterial Blood Ionized Calcium Urine WBC (Auto) 05/01/20 05/03/20 05/03/20 23:35 05:09 11:36 WBC RBC Hgb Hct MCV MCH RDW Plt Count Lymph % (Auto) Leslie % (Auto) Lymph # (Auto) Leslie # (Auto) Seg Neutrophils % Seg Neuts % (Manual) Lymphocytes % (Manual) Monocytes % (Manual) Basophils % (Manual) Seg Neutrophils # Seg Neutrophils # Man Lymphocytes # (Manual) Monocytes # (Manual) Eosinophils # (Manual) Basophils # (Manual) PT INR D-Dimer ABG pH POC ABG pCO2 POC ABG pO2 ABG pO2 ABG HCO3 ABG O2 Saturation ABG Base Excess ABG Hemoglobin ABG Oxyhemoglobin ABG Potassium ABG Glucose Oxyhemoglobin Carboxyhemoglobin Sodium Potassium Chloride Carbon Dioxide BUN Creatinine Glucose POC Glucose 116 H 117 H 116 H Calcium Ferritin Total Bilirubin Alkaline Phosphatase Lactate Dehydrogenase Total Creatine Kinase CK-MB (CK-2) Rel Index Troponin T C-Reactive Protein Total Protein Albumin Prealbumin LDL Cholesterol Direct HDL Cholesterol Arterial Blood Glucose Arterial Blood Ionized Calcium Urine WBC (Auto) 05/03/20 05/03/20 05/03/20 14:06 14:06 23:39 WBC 12.5 H RBC Hgb 10.0 L Hct 31.2 L MCV 80 L MCH 26 L RDW 17.6 H Plt Count 488 H Lymph % (Auto) Leslie % (Auto) Lymph # (Auto) Leslie # (Auto) Seg Neutrophils % Seg Neuts % (Manual) Lymphocytes % (Manual) Monocytes % (Manual) Basophils % (Manual) Seg Neutrophils # Seg Neutrophils # Man Lymphocytes # (Manual) Monocytes # (Manual) Eosinophils # (Manual) Basophils # (Manual) PT INR D-Dimer ABG pH POC ABG pCO2 POC ABG pO2 ABG pO2 ABG HCO3 ABG O2 Saturation ABG Base Excess ABG Hemoglobin ABG Oxyhemoglobin ABG Potassium ABG Glucose Oxyhemoglobin Carboxyhemoglobin Sodium Potassium Chloride 95.4 L Carbon Dioxide 40 H BUN Creatinine < 0.2 L Glucose 121 H POC Glucose 107 H Calcium Ferritin Total Bilirubin Alkaline Phosphatase Lactate Dehydrogenase Total Creatine Kinase CK-MB (CK-2) Rel Index Troponin T C-Reactive Protein Total Protein Albumin Prealbumin LDL Cholesterol Direct HDL Cholesterol Arterial Blood Glucose Arterial Blood Ionized Calcium Urine WBC (Auto) 05/04/20 05/04/20 05/04/20 11:31 16:57 23:18 WBC RBC Hgb Hct MCV MCH RDW Plt Count Lymph % (Auto) Leslie % (Auto) Lymph # (Auto) Leslie # (Auto) Seg Neutrophils % Seg Neuts % (Manual) Lymphocytes % (Manual) Monocytes % (Manual) Basophils % (Manual) Seg Neutrophils # Seg Neutrophils # Man Lymphocytes # (Manual) Monocytes # (Manual) Eosinophils # (Manual) Basophils # (Manual) PT INR D-Dimer ABG pH POC ABG pCO2 POC ABG pO2 ABG pO2 ABG HCO3 ABG O2 Saturation ABG Base Excess ABG Hemoglobin ABG Oxyhemoglobin ABG Potassium ABG Glucose Oxyhemoglobin Carboxyhemoglobin Sodium Potassium Chloride Carbon Dioxide BUN Creatinine Glucose POC Glucose 113 H 126 H 126 H Calcium Ferritin Total Bilirubin Alkaline Phosphatase Lactate Dehydrogenase Total Creatine Kinase CK-MB (CK-2) Rel Index Troponin T C-Reactive Protein Total Protein Albumin Prealbumin LDL Cholesterol Direct HDL Cholesterol Arterial Blood Glucose Arterial Blood Ionized Calcium Urine WBC (Auto) 05/05/20 05/05/20 05/05/20 05:32 11:11 23:57 WBC RBC Hgb Hct MCV MCH RDW Plt Count Lymph % (Auto) Leslie % (Auto) Lymph # (Auto) Leslie # (Auto) Seg Neutrophils % Seg Neuts % (Manual) Lymphocytes % (Manual) Monocytes % (Manual) Basophils % (Manual) Seg Neutrophils # Seg Neutrophils # Man Lymphocytes # (Manual) Monocytes # (Manual) Eosinophils # (Manual) Basophils # (Manual) PT INR D-Dimer ABG pH POC ABG pCO2 POC ABG pO2 ABG pO2 ABG HCO3 ABG O2 Saturation ABG Base Excess ABG Hemoglobin ABG Oxyhemoglobin ABG Potassium ABG Glucose Oxyhemoglobin Carboxyhemoglobin Sodium Potassium Chloride Carbon Dioxide BUN Creatinine Glucose POC Glucose 109 H 124 H 119 H Calcium Ferritin Total Bilirubin Alkaline Phosphatase Lactate Dehydrogenase Total Creatine Kinase CK-MB (CK-2) Rel Index Troponin T C-Reactive Protein Total Protein Albumin Prealbumin LDL Cholesterol Direct HDL Cholesterol Arterial Blood Glucose Arterial Blood Ionized Calcium Urine WBC (Auto) 05/06/20 05/06/20 05/07/20 05:34 23:08 04:43 WBC RBC Hgb 10.1 L Hct 31.9 L MCV 81 L MCH 25 L RDW 17.6 H Plt Count 506 H Lymph % (Auto) Leslie % (Auto) 8.6 H Lymph # (Auto) Leslie # (Auto) 0.9 H Seg Neutrophils % Seg Neuts % (Manual) Lymphocytes % (Manual) Monocytes % (Manual) Basophils % (Manual) Seg Neutrophils # Seg Neutrophils # Man Lymphocytes # (Manual) Monocytes # (Manual) Eosinophils # (Manual) Basophils # (Manual) PT INR D-Dimer ABG pH POC ABG pCO2 POC ABG pO2 ABG pO2 ABG HCO3 ABG O2 Saturation ABG Base Excess ABG Hemoglobin ABG Oxyhemoglobin ABG Potassium ABG Glucose Oxyhemoglobin Carboxyhemoglobin Sodium Potassium Chloride Carbon Dioxide BUN Creatinine Glucose POC Glucose 121 H 107 H Calcium Ferritin Total Bilirubin Alkaline Phosphatase Lactate Dehydrogenase Total Creatine Kinase CK-MB (CK-2) Rel Index Troponin T C-Reactive Protein Total Protein Albumin Prealbumin LDL Cholesterol Direct HDL Cholesterol Arterial Blood Glucose Arterial Blood Ionized Calcium Urine WBC (Auto) 05/07/20 05/07/20 05/07/20 06:18 17:13 23:29 WBC RBC Hgb Hct MCV MCH RDW Plt Count Lymph % (Auto) Leslie % (Auto) Lymph # (Auto) Leslie # (Auto) Seg Neutrophils % Seg Neuts % (Manual) Lymphocytes % (Manual) Monocytes % (Manual) Basophils % (Manual) Seg Neutrophils # Seg Neutrophils # Man Lymphocytes # (Manual) Monocytes # (Manual) Eosinophils # (Manual) Basophils # (Manual) PT INR D-Dimer ABG pH POC ABG pCO2 POC ABG pO2 ABG pO2 ABG HCO3 ABG O2 Saturation ABG Base Excess ABG Hemoglobin ABG Oxyhemoglobin ABG Potassium ABG Glucose Oxyhemoglobin Carboxyhemoglobin Sodium Potassium Chloride Carbon Dioxide BUN Creatinine Glucose POC Glucose 121 H 122 H 114 H Calcium Ferritin Total Bilirubin Alkaline Phosphatase Lactate Dehydrogenase Total Creatine Kinase CK-MB (CK-2) Rel Index Troponin T C-Reactive Protein Total Protein Albumin Prealbumin LDL Cholesterol Direct HDL Cholesterol Arterial Blood Glucose Arterial Blood Ionized Calcium Urine WBC (Auto) 05/08/20 05/08/20 05/08/20 05:20 11:57 23:42 WBC RBC Hgb Hct MCV MCH RDW Plt Count Lymph % (Auto) Leslie % (Auto) Lymph # (Auto) Leslie # (Auto) Seg Neutrophils % Seg Neuts % (Manual) Lymphocytes % (Manual) Monocytes % (Manual) Basophils % (Manual) Seg Neutrophils # Seg Neutrophils # Man Lymphocytes # (Manual) Monocytes # (Manual) Eosinophils # (Manual) Basophils # (Manual) PT INR D-Dimer ABG pH POC ABG pCO2 POC ABG pO2 ABG pO2 ABG HCO3 ABG O2 Saturation ABG Base Excess ABG Hemoglobin ABG Oxyhemoglobin ABG Potassium ABG Glucose Oxyhemoglobin Carboxyhemoglobin Sodium Potassium Chloride Carbon Dioxide BUN Creatinine Glucose POC Glucose 121 H 113 H 135 H Calcium Ferritin Total Bilirubin Alkaline Phosphatase Lactate Dehydrogenase Total Creatine Kinase CK-MB (CK-2) Rel Index Troponin T C-Reactive Protein Total Protein Albumin Prealbumin LDL Cholesterol Direct HDL Cholesterol Arterial Blood Glucose Arterial Blood Ionized Calcium Urine WBC (Auto) 05/09/20 05/09/20 05/09/20 05:31 11:11 16:06 WBC RBC Hgb Hct MCV MCH RDW Plt Count Lymph % (Auto) Leslie % (Auto) Lymph # (Auto) Leslie # (Auto) Seg Neutrophils % Seg Neuts % (Manual) Lymphocytes % (Manual) Monocytes % (Manual) Basophils % (Manual) Seg Neutrophils # Seg Neutrophils # Man Lymphocytes # (Manual) Monocytes # (Manual) Eosinophils # (Manual) Basophils # (Manual) PT INR D-Dimer ABG pH POC ABG pCO2 POC ABG pO2 ABG pO2 ABG HCO3 ABG O2 Saturation ABG Base Excess ABG Hemoglobin ABG Oxyhemoglobin ABG Potassium ABG Glucose Oxyhemoglobin Carboxyhemoglobin Sodium 136 L Potassium Chloride 97.0 L Carbon Dioxide 34 H BUN Creatinine < 0.2 L Glucose 107 H POC Glucose 66 L 127 H Calcium Ferritin Total Bilirubin Alkaline Phosphatase Lactate Dehydrogenase Total Creatine Kinase CK-MB (CK-2) Rel Index Troponin T C-Reactive Protein Total Protein Albumin Prealbumin LDL Cholesterol Direct HDL Cholesterol Arterial Blood Glucose Arterial Blood Ionized Calcium Urine WBC (Auto) 05/09/20 05/10/20 05/10/20 23:19 04:59 11:28 WBC RBC Hgb Hct MCV MCH RDW Plt Count Lymph % (Auto) Leslie % (Auto) Lymph # (Auto) Leslie # (Auto) Seg Neutrophils % Seg Neuts % (Manual) Lymphocytes % (Manual) Monocytes % (Manual) Basophils % (Manual) Seg Neutrophils # Seg Neutrophils # Man Lymphocytes # (Manual) Monocytes # (Manual) Eosinophils # (Manual) Basophils # (Manual) PT INR D-Dimer ABG pH POC ABG pCO2 POC ABG pO2 ABG pO2 ABG HCO3 ABG O2 Saturation ABG Base Excess ABG Hemoglobin ABG Oxyhemoglobin ABG Potassium ABG Glucose Oxyhemoglobin Carboxyhemoglobin Sodium Potassium Chloride Carbon Dioxide BUN Creatinine Glucose POC Glucose 108 H 126 H 124 H Calcium Ferritin Total Bilirubin Alkaline Phosphatase Lactate Dehydrogenase Total Creatine Kinase CK-MB (CK-2) Rel Index Troponin T C-Reactive Protein Total Protein Albumin Prealbumin LDL Cholesterol Direct HDL Cholesterol Arterial Blood Glucose Arterial Blood Ionized Calcium Urine WBC (Auto) 05/10/20 05/11/20 05/11/20 23:56 06:13 11:44 WBC RBC Hgb Hct MCV MCH RDW Plt Count Lymph % (Auto) Leslie % (Auto) Lymph # (Auto) Leslie # (Auto) Seg Neutrophils % Seg Neuts % (Manual) Lymphocytes % (Manual) Monocytes % (Manual) Basophils % (Manual) Seg Neutrophils # Seg Neutrophils # Man Lymphocytes # (Manual) Monocytes # (Manual) Eosinophils # (Manual) Basophils # (Manual) PT INR D-Dimer ABG pH POC ABG pCO2 POC ABG pO2 ABG pO2 ABG HCO3 ABG O2 Saturation ABG Base Excess ABG Hemoglobin ABG Oxyhemoglobin ABG Potassium ABG Glucose Oxyhemoglobin Carboxyhemoglobin Sodium Potassium Chloride Carbon Dioxide BUN Creatinine Glucose POC Glucose 113 H 124 H 125 H Calcium Ferritin Total Bilirubin Alkaline Phosphatase Lactate Dehydrogenase Total Creatine Kinase CK-MB (CK-2) Rel Index Troponin T C-Reactive Protein Total Protein Albumin Prealbumin LDL Cholesterol Direct HDL Cholesterol Arterial Blood Glucose Arterial Blood Ionized Calcium Urine WBC (Auto) 05/12/20 05/12/20 05/12/20 06:04 12:17 17:23 WBC RBC Hgb Hct MCV MCH RDW Plt Count Lymph % (Auto) Leslie % (Auto) Lymph # (Auto) Leslie # (Auto) Seg Neutrophils % Seg Neuts % (Manual) Lymphocytes % (Manual) Monocytes % (Manual) Basophils % (Manual) Seg Neutrophils # Seg Neutrophils # Man Lymphocytes # (Manual) Monocytes # (Manual) Eosinophils # (Manual) Basophils # (Manual) PT INR D-Dimer ABG pH POC ABG pCO2 POC ABG pO2 ABG pO2 ABG HCO3 ABG O2 Saturation ABG Base Excess ABG Hemoglobin ABG Oxyhemoglobin ABG Potassium ABG Glucose Oxyhemoglobin Carboxyhemoglobin Sodium Potassium Chloride Carbon Dioxide BUN Creatinine Glucose POC Glucose 135 H 136 H 133 H Calcium Ferritin Total Bilirubin Alkaline Phosphatase Lactate Dehydrogenase Total Creatine Kinase CK-MB (CK-2) Rel Index Troponin T C-Reactive Protein Total Protein Albumin Prealbumin LDL Cholesterol Direct HDL Cholesterol Arterial Blood Glucose Arterial Blood Ionized Calcium Urine WBC (Auto) 05/12/20 05/13/20 05/13/20 23:34 05:36 11:25 WBC RBC Hgb Hct MCV MCH RDW Plt Count Lymph % (Auto) Leslie % (Auto) Lymph # (Auto) Leslie # (Auto) Seg Neutrophils % Seg Neuts % (Manual) Lymphocytes % (Manual) Monocytes % (Manual) Basophils % (Manual) Seg Neutrophils # Seg Neutrophils # Man Lymphocytes # (Manual) Monocytes # (Manual) Eosinophils # (Manual) Basophils # (Manual) PT INR D-Dimer ABG pH POC ABG pCO2 POC ABG pO2 ABG pO2 ABG HCO3 ABG O2 Saturation ABG Base Excess ABG Hemoglobin ABG Oxyhemoglobin ABG Potassium ABG Glucose Oxyhemoglobin Carboxyhemoglobin Sodium Potassium Chloride Carbon Dioxide BUN Creatinine Glucose POC Glucose 141 H 131 H 148 H Calcium Ferritin Total Bilirubin Alkaline Phosphatase Lactate Dehydrogenase Total Creatine Kinase CK-MB (CK-2) Rel Index Troponin T C-Reactive Protein Total Protein Albumin Prealbumin LDL Cholesterol Direct HDL Cholesterol Arterial Blood Glucose Arterial Blood Ionized Calcium Urine WBC (Auto) 05/13/20 05/14/20 05/14/20 16:40 00:11 05:03 WBC RBC Hgb Hct MCV MCH RDW Plt Count Lymph % (Auto) Leslie % (Auto) Lymph # (Auto) Leslie # (Auto) Seg Neutrophils % Seg Neuts % (Manual) Lymphocytes % (Manual) Monocytes % (Manual) Basophils % (Manual) Seg Neutrophils # Seg Neutrophils # Man Lymphocytes # (Manual) Monocytes # (Manual) Eosinophils # (Manual) Basophils # (Manual) PT INR D-Dimer ABG pH POC ABG pCO2 POC ABG pO2 ABG pO2 ABG HCO3 ABG O2 Saturation ABG Base Excess ABG Hemoglobin ABG Oxyhemoglobin ABG Potassium ABG Glucose Oxyhemoglobin Carboxyhemoglobin Sodium Potassium Chloride Carbon Dioxide BUN Creatinine Glucose POC Glucose 118 H 128 H 129 H Calcium Ferritin Total Bilirubin Alkaline Phosphatase Lactate Dehydrogenase Total Creatine Kinase CK-MB (CK-2) Rel Index Troponin T C-Reactive Protein Total Protein Albumin Prealbumin LDL Cholesterol Direct HDL Cholesterol Arterial Blood Glucose Arterial Blood Ionized Calcium Urine WBC (Auto) 05/14/20 05/15/20 05/16/20 11:38 23:46 05:20 WBC RBC Hgb Hct MCV MCH RDW Plt Count Lymph % (Auto) Leslie % (Auto) Lymph # (Auto) Leslie # (Auto) Seg Neutrophils % Seg Neuts % (Manual) Lymphocytes % (Manual) Monocytes % (Manual) Basophils % (Manual) Seg Neutrophils # Seg Neutrophils # Man Lymphocytes # (Manual) Monocytes # (Manual) Eosinophils # (Manual) Basophils # (Manual) PT INR D-Dimer ABG pH POC ABG pCO2 POC ABG pO2 ABG pO2 ABG HCO3 ABG O2 Saturation ABG Base Excess ABG Hemoglobin ABG Oxyhemoglobin ABG Potassium ABG Glucose Oxyhemoglobin Carboxyhemoglobin Sodium Potassium Chloride Carbon Dioxide BUN Creatinine Glucose POC Glucose 134 H 107 H 122 H Calcium Ferritin Total Bilirubin Alkaline Phosphatase Lactate Dehydrogenase Total Creatine Kinase CK-MB (CK-2) Rel Index Troponin T C-Reactive Protein Total Protein Albumin Prealbumin LDL Cholesterol Direct HDL Cholesterol Arterial Blood Glucose Arterial Blood Ionized Calcium Urine WBC (Auto) 05/16/20 05/16/20 05/18/20 11:57 23:51 11:18 WBC RBC Hgb Hct MCV MCH RDW Plt Count Lymph % (Auto) Leslie % (Auto) Lymph # (Auto) Leslie # (Auto) Seg Neutrophils % Seg Neuts % (Manual) Lymphocytes % (Manual) Monocytes % (Manual) Basophils % (Manual) Seg Neutrophils # Seg Neutrophils # Man Lymphocytes # (Manual) Monocytes # (Manual) Eosinophils # (Manual) Basophils # (Manual) PT INR D-Dimer ABG pH POC ABG pCO2 POC ABG pO2 ABG pO2 ABG HCO3 ABG O2 Saturation ABG Base Excess ABG Hemoglobin ABG Oxyhemoglobin ABG Potassium ABG Glucose Oxyhemoglobin Carboxyhemoglobin Sodium Potassium Chloride Carbon Dioxide BUN Creatinine Glucose POC Glucose 108 H 111 H 115 H Calcium Ferritin Total Bilirubin Alkaline Phosphatase Lactate Dehydrogenase Total Creatine Kinase CK-MB (CK-2) Rel Index Troponin T C-Reactive Protein Total Protein Albumin Prealbumin LDL Cholesterol Direct HDL Cholesterol Arterial Blood Glucose Arterial Blood Ionized Calcium Urine WBC (Auto) 05/18/20 05/18/20 05/19/20 16:18 23:38 05:07 WBC RBC Hgb Hct MCV MCH RDW Plt Count Lymph % (Auto) Leslie % (Auto) Lymph # (Auto) Leslie # (Auto) Seg Neutrophils % Seg Neuts % (Manual) Lymphocytes % (Manual) Monocytes % (Manual) Basophils % (Manual) Seg Neutrophils # Seg Neutrophils # Man Lymphocytes # (Manual) Monocytes # (Manual) Eosinophils # (Manual) Basophils # (Manual) PT INR D-Dimer ABG pH POC ABG pCO2 POC ABG pO2 ABG pO2 ABG HCO3 ABG O2 Saturation ABG Base Excess ABG Hemoglobin ABG Oxyhemoglobin ABG Potassium ABG Glucose Oxyhemoglobin Carboxyhemoglobin Sodium Potassium Chloride Carbon Dioxide BUN Creatinine Glucose POC Glucose 110 H 128 H 121 H Calcium Ferritin Total Bilirubin Alkaline Phosphatase Lactate Dehydrogenase Total Creatine Kinase CK-MB (CK-2) Rel Index Troponin T C-Reactive Protein Total Protein Albumin Prealbumin LDL Cholesterol Direct HDL Cholesterol Arterial Blood Glucose Arterial Blood Ionized Calcium Urine WBC (Auto) 05/19/20 05/19/20 05/19/20 11:36 16:49 23:17 WBC RBC Hgb Hct MCV MCH RDW Plt Count Lymph % (Auto) Leslie % (Auto) Lymph # (Auto) Leslie # (Auto) Seg Neutrophils % Seg Neuts % (Manual) Lymphocytes % (Manual) Monocytes % (Manual) Basophils % (Manual) Seg Neutrophils # Seg Neutrophils # Man Lymphocytes # (Manual) Monocytes # (Manual) Eosinophils # (Manual) Basophils # (Manual) PT INR D-Dimer ABG pH POC ABG pCO2 POC ABG pO2 ABG pO2 ABG HCO3 ABG O2 Saturation ABG Base Excess ABG Hemoglobin ABG Oxyhemoglobin ABG Potassium ABG Glucose Oxyhemoglobin Carboxyhemoglobin Sodium Potassium Chloride Carbon Dioxide BUN Creatinine Glucose POC Glucose 120 H 110 H 122 H Calcium Ferritin Total Bilirubin Alkaline Phosphatase Lactate Dehydrogenase Total Creatine Kinase CK-MB (CK-2) Rel Index Troponin T C-Reactive Protein Total Protein Albumin Prealbumin LDL Cholesterol Direct HDL Cholesterol Arterial Blood Glucose Arterial Blood Ionized Calcium Urine WBC (Auto) 05/20/20 05:17 WBC RBC Hgb Hct MCV MCH RDW Plt Count Lymph % (Auto) Leslie % (Auto) Lymph # (Auto) Leslie # (Auto) Seg Neutrophils % Seg Neuts % (Manual) Lymphocytes % (Manual) Monocytes % (Manual) Basophils % (Manual) Seg Neutrophils # Seg Neutrophils # Man Lymphocytes # (Manual) Monocytes # (Manual) Eosinophils # (Manual) Basophils # (Manual) PT INR D-Dimer ABG pH POC ABG pCO2 POC ABG pO2 ABG pO2 ABG HCO3 ABG O2 Saturation ABG Base Excess ABG Hemoglobin ABG Oxyhemoglobin ABG Potassium ABG Glucose Oxyhemoglobin Carboxyhemoglobin Sodium Potassium Chloride Carbon Dioxide BUN Creatinine Glucose POC Glucose 133 H Calcium Ferritin Total Bilirubin Alkaline Phosphatase Lactate Dehydrogenase Total Creatine Kinase CK-MB (CK-2) Rel Index Troponin T C-Reactive Protein Total Protein Albumin Prealbumin LDL Cholesterol Direct HDL Cholesterol Arterial Blood Glucose Arterial Blood Ionized Calcium Urine WBC (Auto) Allied health notes reviewed: nursing
[2020-05-20] MEDS: SENNOSIDES 8.6 MG TAB PO SCH (22:32)
[2020-05-20] MEDS: ENOXAPARIN 40 MG/0.4 ML INJ SUB-Q SCH (22:32)
[2020-05-20] MEDS: D5W/0.9% NACL 1,000 ML IV SCH (22:33)
[2020-05-21 05:05] LABS: Basophils # (Auto) 0.1 K/mm3 (0.0-0.1); Eosinophils # (Auto) 0.6 K/mm3 (0.0-0.4); Eosinophils % (Auto) 7.2 % (0.0-4.3); Hematocrit 35.4 % (35.5-45.6); Hemoglobin 11.2 gm/dl (11.8-15.2); Lymphocytes # (Auto) 1.7 K/mm3 (1.2-5.4); Lymphocytes % (Auto) 18.9 % (13.4-35.0); Mean Corpuscular HGB Conc 32 % (32-34); Mean Corpuscular Volume 81 fl (84-94); Monocytes # (Auto) 0.8 K/mm3 (0.0-0.8); Monocytes % (Auto) 8.8 % (0.0-7.3); Platelet Count 458 K/mm3 (140-440); Red Blood Count 4.39 M/mm3 (3.65-5.03); Red Cell Distribution Width 18.2 % (13.2-15.2)
[2020-05-21 05:14] LABS: Blood Urea Nitrogen 13 mg/dL (9-20); Hemolysis Index 6
[2020-05-21 05:26] LABS: BUN/Creatinine Ratio 65
[2020-05-21] MEDS: diphenhydrAMINE 25 MG/10 ML ORAL LIQUID FEEDTUBE PRN ×2 (06:30→14:20)
[2020-05-21] MEDS: ALPRAZolam 0.5 MG TAB PO PRN ×3 (06:30→22:40)
[2020-05-21] MEDS: MORPHINE 2 MG/1 ML INJ IV PRN ×3 (06:30→22:41)
[2020-05-21] MEDS: METOPROLOL TARTRATE 25 MG TAB PO SCH ×2 (11:27→22:40)
[2020-05-21] MEDS: ASPIRIN EC 81 MG TAB PO SCH (11:27)
[2020-05-21] MEDS: PREGABALIN 75 MG CAP PO SCH ×2 (11:27→22:40)
[2020-05-21] MEDS: GLYCOPYRROLATE 1 MG TAB PO SCH ×3 (11:28→22:40)
[2020-05-21] MEDS: LANSOPRAZOLE 30 MG SOLUTAB FEEDTUBE SCH (11:28)
[2020-05-21] MEDS: BACLOFEN 10 MG TAB PO SCH ×2 (11:28→22:40)
[2020-05-21] MEDS: LIDOCAINE 5% 1 EACH PATCH TD SCH (11:28)
[2020-05-21] MEDS: DOCUSATE SODIUM 100 MG/10 ML ORAL LIQD FEEDTUBE SCH ×2 (11:28→22:39)
[2020-05-21] MEDS: MAGIC MOUTHWASH 30ML PO SCH ×3 (11:29→22:42)
[2020-05-21] MEDS: TAMSULOSIN 0.4 MG CAP PO SCH (11:33)
--- NOTE | 2020-05-21 12:17 | Progress Note ---
Assessment and Plan Patient Sleepin sleeping at this time. Patient is on assist control mechanical ventilation, rate 10, Tidal volume 300, FIO2 30%, PEEP 6 and O2 saturation running 97%. Recommend Continue spontaneous breathing trials as tolerated.Respiratory therapy told me, Patient Not tolearing T tube trial ' Recommend to decrease pressure support to 5.Patient afebrile and has no leukocytosis. Chest xray done 05/02/20 reported Interval worsening of right lung base opacity now appears to be pleural parenchymal. This may be a worsened infectious process or development of right-sided pleural effusion and worsened right lung base atelectasis. Left lung base opacity is stable. Tracheostomy in stable position. Patient right lung base infiltrate reported intervel worsening, patient has no leukocytosis, recommend to place him antibiotic like zosyn. Repeat chest xray 05/11/20 reported Mild interval improvement in the hazy opacity at the right lung base as described. I suspect this represents an improving atelectasis over effusion. - Patient Problems (1) Acute on chronic respiratory failure with hypoxia and hypercapnia Current Visit: Yes Status: Acute Plan to address problem: Patient is resting on assist control rate 10, tidal volume 300, FIO2 30%, PEEP 6. Albuterol inhaler 2 puffs po qid. Continue S/C Lovenox. Continue prevacid. Recommend continue spontaneous breathing trials. (2) Bleeding from wound Current Visit: Yes Status: Acute Plan to address problem: Management primary care , surgery and wound care. (3) Elevated d-dimer Current Visit: Yes Status: Acute Plan to address problem: Patients venous doppler studies of legs, CTA chest reported Negative for VTE. Patient is on S/C Lovenox 40 mg qd. (4) Elevated troponin Current Visit: Yes Status: Acute Plan to address problem: Management as per primary care and cardiology (5) NSTEMI (non-ST elevated myocardial infarction) Current Visit: Yes Status: Acute Plan to address problem: Management as per cardiology. (6) Pneumonia Current Visit: Yes Status: Acute Qualifiers: Laterality: bilateral Plan to address problem: Patient afebrile . Has mild leukocytosis. Repeat Chest xray done 05/02/20 reported Interval worsening of right lung base opacity now appears to be pleural parenchymal. This may be a worsened infectious process or development of right-sided pleural effusion and worsened right lung base atelectasis. Left lung base opacity is stable. Tracheostomy in stable position. Patient right lung base infiltrate reported intervel worsening, patient has no leukocytosis, recommend to place him antibiotic like zosyn. Repeating chest xray and ABGs. Repeat chest xray 05/11/20 reported Mild interval improvement in the hazy opacity at the right lung base as described. I suspect this represents an improving atelectasis over effusion. Subjective Date of service: 05/21/20 Principal diagnosis: Ac on Ch Hypercapnic & hypoxemic Resp Failure; Severe Sepsis; Jamar PNA; ALS Interval history: Patient Sleepin sleeping at this time. Patient is on assist control mechanical ventilation, rate 10, Tidal volume 300, FIO2 30%, PEEP 6 and O2 saturation running 97%. Recommend Continue spontaneous breathing trials as tolerated.Respiratory therapy told me, Patient Not tolearing T tube trial ' Recommend to decrease pressure support to 5.Patient afebrile and has no leukocytosis. Chest xray done 05/02/20 reported Interval worsening of right lung base opacity now appears to be pleural parenchymal. This may be a worsened infectious process or development of right-sided pleural effusion and worsened right lung base atelectasis. Left lung base opacity is stable. Tracheostomy in stable position. Patient right lung base infiltrate reported intervel worsening, patient has no leukocytosis, recommend to place him antibiotic like zosyn. Repeat chest xray 05/11/20 reported Mild interval improvement in the hazy opacity at the right lung base as described. I suspect this represents an improving atelectasis over effusion. Objective Vital Signs - 12hr 05/21/20 05/21/20 05/21/20 01:00 02:00 03:00 Temperature Pulse Rate 96 H 97 H 95 H Respiratory 21 23 22 Rate Blood Pressure 142/97 148/98 134/98 O2 Sat by Pulse 97 97 Oximetry O2 Sat by Pulse Oximetry [ Assessment] 05/21/20 05/21/20 05/21/20 03:10 03:28 04:00 Temperature 98.6 F Pulse Rate 121 H 102 H Respiratory 24 Rate Blood Pressure 134/98 140/101 O2 Sat by Pulse 97 97 Oximetry O2 Sat by Pulse 97 Oximetry [ Assessment] 05/21/20 05/21/20 05/21/20 05:00 06:00 07:01 Temperature Pulse Rate 109 H 108 H 110 H Respiratory 20 25 H 22 Rate Blood Pressure 133/91 144/101 135/93 O2 Sat by Pulse 93 94 95 Oximetry O2 Sat by Pulse Oximetry [ Assessment] 05/21/20 05/21/20 08:00 09:00 Temperature 98.3 F Pulse Rate 112 H 106 H Respiratory 18 21 Rate Blood Pressure 151/108 157/106 O2 Sat by Pulse 97 96 Oximetry O2 Sat by Pulse Oximetry [ Assessment] Constitutional: no acute distress, other (thin middle aged male with mildly increased respiratory effort at rest on MVS) Eyes: non-icteric ENT: oropharynx moist, other (S/P Tracheostomy) Neck: supple, no lymphadenopathy, no JVD Effort: mildly labored Ascultation: Bilateral: diminished breath sounds, wheezes, rhonchi (scant in bases) Percussion: Bilateral: not dull Cardiovascular: regular rate and rhythm, other (S1,S2, no murmurs) Gastrointestinal: normoactive bowel sounds, soft, non-tender, non-distended Integumentary: normal, decubitus ulcer (sacral / gluteal) Extremities: no cyanosis, no edema, pulses normal, other (atrophic looking limbs) Neurologic: pupils equal and round, other (motor strength in extremities 1-2/5, awake, alert, mouths words to make needs known) Psychiatric: depressed CBC and BMP: 05/21/20 04:18 05/21/20 04:18 ABG, PT/INR, D-dimer: ABG ABG pH 7.371 (7.320-7.450) 03/08/20 12:34 POC ABG pCO2 63.1 mmHg (32.0-48.0) H 03/08/20 12:34 ABG pCO2 60.1 mm Hg 03/06/20 04:34 POC ABG pO2 90.5 mmHg (83-108) 03/08/20 12:34 ABG pO2 88.6 mm Hg (80.0-90.0) 03/06/20 04:34 POC ABG HCO3 35.7 03/08/20 12:34 ABG O2 Saturation 97.0 % (95.0-99.0) 03/06/20 04:34 PT/INR, D-dimer PT 15.6 Sec. (12.2-14.9) H 02/24/20 09:19 INR 1.21 (0.87-1.13) H 02/24/20 09:19 D-Dimer 1311.96 ng/mlDDU (0-234) H 02/24/20 09:19 Abnormal lab findings: Abnormal Labs 02/24/20 02/24/20 02/24/20 09:19 09:19 09:19 WBC 20.2 H RBC 5.05 H Hgb Hct MCV MCH RDW 15.3 H Plt Count Lymph % (Auto) [place] % (Auto) Eos % (Auto) Lymph # (Auto) [place] # (Auto) Eos # (Auto) Seg Neutrophils % Seg Neuts % (Manual) 86.0 H Lymphocytes % (Manual) 1.0 L Monocytes % (Manual) Basophils % (Manual) Seg Neutrophils # Seg Neutrophils # Man 17.4 H Lymphocytes # (Manual) 0.2 L Monocytes # (Manual) Eosinophils # (Manual) Basophils # (Manual) PT 15.6 H INR 1.21 H D-Dimer 1311.96 H ABG pH POC ABG pCO2 POC ABG pO2 ABG pO2 ABG HCO3 ABG O2 Saturation ABG Base Excess ABG Hemoglobin ABG Oxyhemoglobin ABG Potassium ABG Glucose Oxyhemoglobin Carboxyhemoglobin Sodium 135 L Potassium 3.2 L Chloride 92.2 L Carbon Dioxide BUN 6 L Creatinine < 0.2 L Glucose 124 H POC Glucose Calcium Ferritin Total Bilirubin 2.30 H Alkaline Phosphatase 132 H Lactate Dehydrogenase Total Creatine Kinase CK-MB (CK-2) Rel Index Troponin T 0.080 H C-Reactive Protein Total Protein Albumin 3.6 L Prealbumin LDL Cholesterol Direct 41 L HDL Cholesterol Arterial Blood Glucose Arterial Blood Ionized Calcium Urine WBC (Auto) 02/24/20 02/24/20 02/24/20 09:19 09:58 10:01 WBC RBC Hgb Hct MCV MCH RDW Plt Count Lymph % (Auto) [place] % (Auto) Eos % (Auto) Lymph # (Auto) [place] # (Auto) Eos # (Auto) Seg Neutrophils % Seg Neuts % (Manual) Lymphocytes % (Manual) Monocytes % (Manual) Basophils % (Manual) Seg Neutrophils # Seg Neutrophils # Man Lymphocytes # (Manual) Monocytes # (Manual) Eosinophils # (Manual) Basophils # (Manual) PT INR D-Dimer ABG pH 7.176 L* POC ABG pCO2 POC ABG pO2 ABG pO2 91.2 H ABG HCO3 ABG O2 Saturation ABG Base Excess -4.6 L ABG Hemoglobin ABG Oxyhemoglobin ABG Potassium ABG Glucose Oxyhemoglobin 92.6 L Carboxyhemoglobin Sodium Potassium Chloride Carbon Dioxide BUN Creatinine Glucose POC Glucose Calcium Ferritin 1715.0 H Total Bilirubin Alkaline Phosphatase Lactate Dehydrogenase 303 H Total Creatine Kinase CK-MB (CK-2) Rel Index Troponin T C-Reactive Protein 26.10 H Total Protein Albumin Prealbumin LDL Cholesterol Direct HDL Cholesterol Arterial Blood Glucose Arterial Blood Ionized Calcium Urine WBC (Auto) 02/24/20 02/24/20 02/24/20 11:52 13:45 19:35 WBC RBC Hgb Hct MCV MCH RDW Plt Count Lymph % (Auto) [place] % (Auto) Eos % (Auto) Lymph # (Auto) [place] # (Auto) Eos # (Auto) Seg Neutrophils % Seg Neuts % (Manual) Lymphocytes % (Manual) Monocytes % (Manual) Basophils % (Manual) Seg Neutrophils # Seg Neutrophils # Man Lymphocytes # (Manual) Monocytes # (Manual) Eosinophils # (Manual) Basophils # (Manual) PT INR D-Dimer ABG pH 7.051 L* 7.300 L POC ABG pCO2 POC ABG pO2 ABG pO2 94.7 H 75.1 L ABG HCO3 18.0 L ABG O2 Saturation 93.5 L ABG Base Excess -6.8 L -7.8 L ABG Hemoglobin 13.2 L 11.9 L ABG Oxyhemoglobin ABG Potassium ABG Glucose Oxyhemoglobin 91.0 L 92.7 L Carboxyhemoglobin Sodium Potassium Chloride Carbon Dioxide BUN Creatinine Glucose POC Glucose Calcium Ferritin Total Bilirubin Alkaline Phosphatase Lactate Dehydrogenase Total Creatine Kinase CK-MB (CK-2) Rel Index Troponin T 0.034 H D C-Reactive Protein Total Protein Albumin Prealbumin LDL Cholesterol Direct HDL Cholesterol Arterial Blood Glucose Arterial Blood Ionized Calcium Urine WBC (Auto) 02/25/20 02/25/20 02/25/20 04:00 04:00 12:26 WBC 22.9 H RBC Hgb Hct MCV 83 L MCH 27 L RDW Plt Count 468 H Lymph % (Auto) [place] % (Auto) Eos % (Auto) Lymph # (Auto) [place] # (Auto) Eos # (Auto) Seg Neutrophils % Seg Neuts % (Manual) 89.0 H Lymphocytes % (Manual) 7.0 L Monocytes % (Manual) Basophils % (Manual) Seg Neutrophils # Seg Neutrophils # Man 20.4 H Lymphocytes # (Manual) Monocytes # (Manual) Eosinophils # (Manual) Basophils # (Manual) PT INR D-Dimer ABG pH POC ABG pCO2 POC ABG pO2 ABG pO2 ABG HCO3 ABG O2 Saturation ABG Base Excess ABG Hemoglobin ABG Oxyhemoglobin ABG Potassium 2.6 L ABG Glucose 142 H Oxyhemoglobin Carboxyhemoglobin Sodium Potassium 3.2 L Chloride Carbon Dioxide 18 L BUN Creatinine 0.2 L Glucose 114 H POC Glucose Calcium Ferritin Total Bilirubin Alkaline Phosphatase Lactate Dehydrogenase Total Creatine Kinase CK-MB (CK-2) Rel Index Troponin T C-Reactive Protein Total Protein Albumin 3.5 L Prealbumin LDL Cholesterol Direct HDL Cholesterol Arterial Blood Glucose 142 H Arterial Blood Ionized Calcium Urine WBC (Auto) 02/26/20 02/26/20 02/26/20 15:58 17:00 23:43 WBC RBC Hgb Hct MCV MCH RDW Plt Count Lymph % (Auto) [place] % (Auto) Eos % (Auto) Lymph # (Auto) [place] # (Auto) Eos # (Auto) Seg Neutrophils % Seg Neuts % (Manual) Lymphocytes % (Manual) Monocytes % (Manual) Basophils % (Manual) Seg Neutrophils # Seg Neutrophils # Man Lymphocytes # (Manual) Monocytes # (Manual) Eosinophils # (Manual) Basophils # (Manual) PT INR D-Dimer ABG pH 7.502 H POC ABG pCO2 POC ABG pO2 213.6 H ABG pO2 ABG HCO3 ABG O2 Saturation ABG Base Excess ABG Hemoglobin ABG Oxyhemoglobin 99.2 H ABG Potassium 2.9 L ABG Glucose 160 H Oxyhemoglobin Carboxyhemoglobin 0.4 L Sodium Potassium Chloride Carbon Dioxide BUN Creatinine Glucose POC Glucose 189 H 120 H Calcium Ferritin Total Bilirubin Alkaline Phosphatase Lactate Dehydrogenase Total Creatine Kinase CK-MB (CK-2) Rel Index Troponin T C-Reactive Protein Total Protein Albumin Prealbumin LDL Cholesterol Direct HDL Cholesterol Arterial Blood Glucose 160 H Arterial Blood Ionized Calcium 4.5 L Urine WBC (Auto) 02/27/20 02/27/20 02/27/20 05:00 07:04 17:45 WBC RBC Hgb Hct MCV MCH RDW Plt Count Lymph % (Auto) [place] % (Auto) Eos % (Auto) Lymph # (Auto) [place] # (Auto) Eos # (Auto) Seg Neutrophils % Seg Neuts % (Manual) Lymphocytes % (Manual) Monocytes % (Manual) Basophils % (Manual) Seg Neutrophils # Seg Neutrophils # Man Lymphocytes # (Manual) Monocytes # (Manual) Eosinophils # (Manual) Basophils # (Manual) PT INR D-Dimer ABG pH 7.524 H POC ABG pCO2 POC ABG pO2 ABG pO2 ABG HCO3 ABG O2 Saturation ABG Base Excess ABG Hemoglobin ABG Oxyhemoglobin ABG Potassium 3.0 L ABG Glucose 143 H Oxyhemoglobin Carboxyhemoglobin Sodium Potassium Chloride Carbon Dioxide BUN Creatinine Glucose POC Glucose 154 H 175 H Calcium Ferritin Total Bilirubin Alkaline Phosphatase Lactate Dehydrogenase Total Creatine Kinase CK-MB (CK-2) Rel Index Troponin T C-Reactive Protein Total Protein Albumin Prealbumin LDL Cholesterol Direct HDL Cholesterol Arterial Blood Glucose 143 H Arterial Blood Ionized Calcium Urine WBC (Auto) 02/27/20 02/28/20 02/28/20 Unknown 00:21 04:15 WBC 18.7 H RBC Hgb Hct MCV MCH RDW Plt Count Lymph % (Auto) 8.7 L [place] % (Auto) Eos % (Auto) Lymph # (Auto) [place] # (Auto) 1.2 H Eos # (Auto) Seg Neutrophils % 84.6 H Seg Neuts % (Manual) Lymphocytes % (Manual) Monocytes % (Manual) Basophils % (Manual) Seg Neutrophils # 15.9 H Seg Neutrophils # Man Lymphocytes # (Manual) Monocytes # (Manual) Eosinophils # (Manual) Basophils # (Manual) PT INR D-Dimer ABG pH POC ABG pCO2 POC ABG pO2 ABG pO2 ABG HCO3 ABG O2 Saturation ABG Base Excess ABG Hemoglobin ABG Oxyhemoglobin ABG Potassium ABG Glucose Oxyhemoglobin Carboxyhemoglobin Sodium Potassium 2.9 L* Chloride Carbon Dioxide 33 H D BUN Creatinine < 0.2 L Glucose 157 H POC Glucose 134 H Calcium Ferritin Total Bilirubin Alkaline Phosphatase Lactate Dehydrogenase Total Creatine Kinase CK-MB (CK-2) Rel Index Troponin T C-Reactive Protein Total Protein Albumin Prealbumin LDL Cholesterol Direct HDL Cholesterol Arterial Blood Glucose Arterial Blood Ionized Calcium Urine WBC (Auto) 02/28/20 02/28/20 02/28/20 04:15 05:16 05:39 WBC RBC Hgb Hct MCV MCH RDW Plt Count Lymph % (Auto) [place] % (Auto) Eos % (Auto) Lymph # (Auto) [place] # (Auto) Eos # (Auto) Seg Neutrophils % Seg Neuts % (Manual) Lymphocytes % (Manual) Monocytes % (Manual) Basophils % (Manual) Seg Neutrophils # Seg Neutrophils # Man Lymphocytes # (Manual) Monocytes # (Manual) Eosinophils # (Manual) Basophils # (Manual) PT INR D-Dimer ABG pH POC ABG pCO2 POC ABG pO2 ABG pO2 142.9 H ABG HCO3 34.1 H ABG O2 Saturation ABG Base Excess 8.3 H ABG Hemoglobin ABG Oxyhemoglobin ABG Potassium ABG Glucose Oxyhemoglobin Carboxyhemoglobin Sodium 151 H Potassium Chloride Carbon Dioxide 32 H BUN Creatinine 0.2 L Glucose 167 H POC Glucose 138 H Calcium Ferritin Total Bilirubin Alkaline Phosphatase Lactate Dehydrogenase Total Creatine Kinase CK-MB (CK-2) Rel Index Troponin T C-Reactive Protein Total Protein Albumin Prealbumin LDL Cholesterol Direct HDL Cholesterol Arterial Blood Glucose Arterial Blood Ionized Calcium Urine WBC (Auto) 02/28/20 02/28/20 02/28/20 11:05 11:33 12:54 WBC RBC Hgb Hct MCV MCH RDW Plt Count Lymph % (Auto) [place] % (Auto) Eos % (Auto) Lymph # (Auto) [place] # (Auto) Eos # (Auto) Seg Neutrophils % Seg Neuts % (Manual) Lymphocytes % (Manual) Monocytes % (Manual) Basophils % (Manual) Seg Neutrophils # Seg Neutrophils # Man Lymphocytes # (Manual) Monocytes # (Manual) Eosinophils # (Manual) Basophils # (Manual) PT INR D-Dimer ABG pH POC ABG pCO2 POC ABG pO2 ABG pO2 ABG HCO3 ABG O2 Saturation ABG Base Excess ABG Hemoglobin ABG Oxyhemoglobin ABG Potassium ABG Glucose Oxyhemoglobin Carboxyhemoglobin Sodium Potassium Chloride Carbon Dioxide BUN Creatinine Glucose POC Glucose 160 H Calcium Ferritin Total Bilirubin Alkaline Phosphatase Lactate Dehydrogenase Total Creatine Kinase CK-MB (CK-2) Rel Index Troponin T C-Reactive Protein 4.70 H Total Protein Albumin Prealbumin 0.090 L LDL Cholesterol Direct HDL Cholesterol Arterial Blood Glucose Arterial Blood Ionized Calcium Urine WBC (Auto) 02/28/20 02/29/20 02/29/20 17:34 00:44 04:05 WBC 19.6 H RBC Hgb Hct MCV MCH 27 L RDW 15.4 H Plt Count Lymph % (Auto) [place] % (Auto) Eos % (Auto) Lymph # (Auto) [place] # (Auto) Eos # (Auto) Seg Neutrophils % Seg Neuts % (Manual) 86.0 H Lymphocytes % (Manual) 7.0 L Monocytes % (Manual) Basophils % (Manual) Seg Neutrophils # Seg Neutrophils # Man 16.9 H Lymphocytes # (Manual) Monocytes # (Manual) 1.2 H Eosinophils # (Manual) Basophils # (Manual) PT INR D-Dimer ABG pH POC ABG pCO2 POC ABG pO2 ABG pO2 ABG HCO3 ABG O2 Saturation ABG Base Excess ABG Hemoglobin ABG Oxyhemoglobin ABG Potassium ABG Glucose Oxyhemoglobin Carboxyhemoglobin Sodium Potassium Chloride Carbon Dioxide BUN Creatinine Glucose POC Glucose 136 H 156 H Calcium Ferritin Total Bilirubin Alkaline Phosphatase Lactate Dehydrogenase Total Creatine Kinase CK-MB (CK-2) Rel Index Troponin T C-Reactive Protein Total Protein Albumin Prealbumin LDL Cholesterol Direct HDL Cholesterol Arterial Blood Glucose Arterial Blood Ionized Calcium Urine WBC (Auto) 02/29/20 02/29/20 02/29/20 04:05 05:14 05:33 WBC RBC Hgb Hct MCV MCH RDW Plt Count Lymph % (Auto) [place] % (Auto) Eos % (Auto) Lymph # (Auto) [place] # (Auto) Eos # (Auto) Seg Neutrophils % Seg Neuts % (Manual) Lymphocytes % (Manual) Monocytes % (Manual) Basophils % (Manual) Seg Neutrophils # Seg Neutrophils # Man Lymphocytes # (Manual) Monocytes # (Manual) Eosinophils # (Manual) Basophils # (Manual) PT INR D-Dimer ABG pH POC ABG pCO2 54.3 H POC ABG pO2 124.8 H ABG pO2 ABG HCO3 ABG O2 Saturation ABG Base Excess ABG Hemoglobin ABG Oxyhemoglobin ABG Potassium ABG Glucose 185 H Oxyhemoglobin Carboxyhemoglobin Sodium 148 H Potassium Chloride Carbon Dioxide 33 H BUN Creatinine < 0.2 L Glucose 173 H POC Glucose 152 H Calcium Ferritin Total Bilirubin Alkaline Phosphatase Lactate Dehydrogenase Total Creatine Kinase CK-MB (CK-2) Rel Index Troponin T C-Reactive Protein Total Protein Albumin Prealbumin LDL Cholesterol Direct HDL Cholesterol Arterial Blood Glucose 185 H Arterial Blood Ionized Calcium Urine WBC (Auto) 03/01/20 03/01/20 03/01/20 00:00 03:45 04:33 WBC 23.1 H RBC Hgb Hct MCV MCH 27 L RDW 15.3 H Plt Count Lymph % (Auto) [place] % (Auto) Eos % (Auto) Lymph # (Auto) [place] # (Auto) Eos # (Auto) Seg Neutrophils % Seg Neuts % (Manual) 92.0 H Lymphocytes % (Manual) 6.0 L Monocytes % (Manual) Basophils % (Manual) Seg Neutrophils # Seg Neutrophils # Man 21.3 H Lymphocytes # (Manual) Monocytes # (Manual) Eosinophils # (Manual) 0.5 H Basophils # (Manual) PT INR D-Dimer ABG pH 7.492 H POC ABG pCO2 POC ABG pO2 ABG pO2 157.1 H ABG HCO3 32.3 H ABG O2 Saturation ABG Base Excess 8.1 H ABG Hemoglobin 13.2 L ABG Oxyhemoglobin ABG Potassium ABG Glucose Oxyhemoglobin Carboxyhemoglobin Sodium Potassium Chloride Carbon Dioxide BUN Creatinine Glucose POC Glucose 109 H Calcium Ferritin Total Bilirubin Alkaline Phosphatase Lactate Dehydrogenase Total Creatine Kinase CK-MB (CK-2) Rel Index Troponin T C-Reactive Protein Total Protein Albumin Prealbumin LDL Cholesterol Direct HDL Cholesterol Arterial Blood Glucose Arterial Blood Ionized Calcium Urine WBC (Auto) 03/01/20 03/01/20 03/01/20 04:33 05:29 12:32 WBC RBC Hgb Hct MCV MCH RDW Plt Count Lymph % (Auto) [place] % (Auto) Eos % (Auto) Lymph # (Auto) [place] # (Auto) Eos # (Auto) Seg Neutrophils % Seg Neuts % (Manual) Lymphocytes % (Manual) Monocytes % (Manual) Basophils % (Manual) Seg Neutrophils # Seg Neutrophils # Man Lymphocytes # (Manual) Monocytes # (Manual) Eosinophils # (Manual) Basophils # (Manual) PT INR D-Dimer ABG pH POC ABG pCO2 POC ABG pO2 ABG pO2 ABG HCO3 ABG O2 Saturation ABG Base Excess ABG Hemoglobin ABG Oxyhemoglobin ABG Potassium ABG Glucose Oxyhemoglobin Carboxyhemoglobin Sodium 146 H Potassium Chloride Carbon Dioxide 32 H BUN Creatinine < 0.2 L Glucose 120 H POC Glucose 120 H 128 H Calcium Ferritin Total Bilirubin Alkaline Phosphatase Lactate Dehydrogenase Total Creatine Kinase CK-MB (CK-2) Rel Index Troponin T C-Reactive Protein Total Protein Albumin Prealbumin LDL Cholesterol Direct HDL Cholesterol Arterial Blood Glucose Arterial Blood Ionized Calcium Urine WBC (Auto) 03/01/20 03/01/20 03/02/20 17:38 23:46 06:13 WBC RBC Hgb Hct MCV MCH RDW Plt Count Lymph % (Auto) [place] % (Auto) Eos % (Auto) Lymph # (Auto) [place] # (Auto) Eos # (Auto) Seg Neutrophils % Seg Neuts % (Manual) Lymphocytes % (Manual) Monocytes % (Manual) Basophils % (Manual) Seg Neutrophils # Seg Neutrophils # Man Lymphocytes # (Manual) Monocytes # (Manual) Eosinophils # (Manual) Basophils # (Manual) PT INR D-Dimer ABG pH POC ABG pCO2 POC ABG pO2 ABG pO2 ABG HCO3 ABG O2 Saturation ABG Base Excess ABG Hemoglobin ABG Oxyhemoglobin ABG Potassium ABG Glucose Oxyhemoglobin Carboxyhemoglobin Sodium Potassium Chloride Carbon Dioxide BUN Creatinine Glucose POC Glucose 114 H 121 H 120 H Calcium Ferritin Total Bilirubin Alkaline Phosphatase Lactate Dehydrogenase Total Creatine Kinase CK-MB (CK-2) Rel Index Troponin T C-Reactive Protein Total Protein Albumin Prealbumin LDL Cholesterol Direct HDL Cholesterol Arterial Blood Glucose Arterial Blood Ionized Calcium Urine WBC (Auto) 03/02/20 03/02/20 03/03/20 09:47 09:47 10:21 WBC 23.6 H RBC Hgb Hct MCV MCH RDW 15.3 H Plt Count 494 H Lymph % (Auto) [place] % (Auto) Eos % (Auto) Lymph # (Auto) [place] # (Auto) Eos # (Auto) Seg Neutrophils % Seg Neuts % (Manual) 85.0 H Lymphocytes % (Manual) 6.0 L Monocytes % (Manual) Basophils % (Manual) Seg Neutrophils # Seg Neutrophils # Man 20.1 H Lymphocytes # (Manual) Monocytes # (Manual) 1.7 H Eosinophils # (Manual) Basophils # (Manual) PT INR D-Dimer ABG pH POC ABG pCO2 POC ABG pO2 ABG pO2 ABG HCO3 ABG O2 Saturation ABG Base Excess ABG Hemoglobin ABG Oxyhemoglobin ABG Potassium 3.3 L ABG Glucose 158 H Oxyhemoglobin Carboxyhemoglobin Sodium Potassium Chloride Carbon Dioxide BUN Creatinine < 0.2 L Glucose 177 H POC Glucose Calcium Ferritin Total Bilirubin Alkaline Phosphatase Lactate Dehydrogenase Total Creatine Kinase CK-MB (CK-2) Rel Index Troponin T C-Reactive Protein Total Protein Albumin Prealbumin LDL Cholesterol Direct HDL Cholesterol Arterial Blood Glucose 158 H Arterial Blood Ionized Calcium Urine WBC (Auto) 03/03/20 03/04/20 03/04/20 21:30 00:00 12:23 WBC RBC Hgb Hct MCV MCH RDW Plt Count Lymph % (Auto) [place] % (Auto) Eos % (Auto) Lymph # (Auto) [place] # (Auto) Eos # (Auto) Seg Neutrophils % Seg Neuts % (Manual) Lymphocytes % (Manual) Monocytes % (Manual) Basophils % (Manual) Seg Neutrophils # Seg Neutrophils # Man Lymphocytes # (Manual) Monocytes # (Manual) Eosinophils # (Manual) Basophils # (Manual) PT INR D-Dimer ABG pH 7.328 L POC ABG pCO2 POC ABG pO2 ABG pO2 68.4 L ABG HCO3 35.0 H ABG O2 Saturation 93.9 L ABG Base Excess 6.8 H ABG Hemoglobin 12.7 L ABG Oxyhemoglobin ABG Potassium ABG Glucose Oxyhemoglobin 91.9 L Carboxyhemoglobin Sodium Potassium Chloride Carbon Dioxide BUN Creatinine Glucose POC Glucose 187 H 163 H Calcium Ferritin Total Bilirubin Alkaline Phosphatase Lactate Dehydrogenase Total Creatine Kinase CK-MB (CK-2) Rel Index Troponin T C-Reactive Protein Total Protein Albumin Prealbumin LDL Cholesterol Direct HDL Cholesterol Arterial Blood Glucose Arterial Blood Ionized Calcium Urine WBC (Auto) 03/04/20 03/04/20 03/05/20 18:15 21:30 06:02 WBC RBC Hgb Hct MCV MCH RDW Plt Count Lymph % (Auto) [place] % (Auto) Eos % (Auto) Lymph # (Auto) [place] # (Auto) Eos # (Auto) Seg Neutrophils % Seg Neuts % (Manual) Lymphocytes % (Manual) Monocytes % (Manual) Basophils % (Manual) Seg Neutrophils # Seg Neutrophils # Man Lymphocytes # (Manual) Monocytes # (Manual) Eosinophils # (Manual) Basophils # (Manual) PT INR D-Dimer ABG pH 7.297 L POC ABG pCO2 POC ABG pO2 ABG pO2 ABG HCO3 41.0 H ABG O2 Saturation ABG Base Excess 11.0 H ABG Hemoglobin 13.1 L ABG Oxyhemoglobin ABG Potassium ABG Glucose Oxyhemoglobin 94.5 L Carboxyhemoglobin Sodium Potassium Chloride Carbon Dioxide BUN Creatinine Glucose POC Glucose 192 H 127 H Calcium Ferritin Total Bilirubin Alkaline Phosphatase Lactate Dehydrogenase Total Creatine Kinase CK-MB (CK-2) Rel Index Troponin T C-Reactive Protein Total Protein Albumin Prealbumin LDL Cholesterol Direct HDL Cholesterol Arterial Blood Glucose Arterial Blood Ionized Calcium Urine WBC (Auto) 03/05/20 03/05/20 03/06/20 12:09 16:42 00:24 WBC RBC Hgb Hct MCV MCH RDW Plt Count Lymph % (Auto) [place] % (Auto) Eos % (Auto) Lymph # (Auto) [place] # (Auto) Eos # (Auto) Seg Neutrophils % Seg Neuts % (Manual) Lymphocytes % (Manual) Monocytes % (Manual) Basophils % (Manual) Seg Neutrophils # Seg Neutrophils # Man Lymphocytes # (Manual) Monocytes # (Manual) Eosinophils # (Manual) Basophils # (Manual) PT INR D-Dimer ABG pH POC ABG pCO2 POC ABG pO2 ABG pO2 ABG HCO3 ABG O2 Saturation ABG Base Excess ABG Hemoglobin ABG Oxyhemoglobin ABG Potassium ABG Glucose Oxyhemoglobin Carboxyhemoglobin Sodium Potassium Chloride Carbon Dioxide BUN Creatinine Glucose POC Glucose 147 H 114 H 134 H Calcium Ferritin Total Bilirubin Alkaline Phosphatase Lactate Dehydrogenase Total Creatine Kinase CK-MB (CK-2) Rel Index Troponin T C-Reactive Protein Total Protein Albumin Prealbumin LDL Cholesterol Direct HDL Cholesterol Arterial Blood Glucose Arterial Blood Ionized Calcium Urine WBC (Auto) 03/06/20 03/06/20 03/06/20 04:34 05:53 06:08 WBC 25.4 H RBC Hgb 10.5 L Hct 32.7 L MCV MCH 27 L RDW 15.3 H Plt Count 634 H Lymph % (Auto) [place] % (Auto) Eos % (Auto) Lymph # (Auto) [place] # (Auto) Eos # (Auto) Seg Neutrophils % Seg Neuts % (Manual) 88.0 H Lymphocytes % (Manual) 2.0 L Monocytes % (Manual) 8.0 H Basophils % (Manual) Seg Neutrophils # Seg Neutrophils # Man 22.4 H Lymphocytes # (Manual) 0.5 L Monocytes # (Manual) 2.0 H Eosinophils # (Manual) Basophils # (Manual) PT INR D-Dimer ABG pH POC ABG pCO2 POC ABG pO2 ABG pO2 ABG HCO3 37.9 H ABG O2 Saturation ABG Base Excess 11.4 H ABG Hemoglobin 10.6 L ABG Oxyhemoglobin ABG Potassium ABG Glucose Oxyhemoglobin 94.7 L Carboxyhemoglobin Sodium Potassium Chloride Carbon Dioxide BUN Creatinine Glucose POC Glucose 135 H Calcium Ferritin Total Bilirubin Alkaline Phosphatase Lactate Dehydrogenase Total Creatine Kinase CK-MB (CK-2) Rel Index Troponin T C-Reactive Protein Total Protein Albumin Prealbumin LDL Cholesterol Direct HDL Cholesterol Arterial Blood Glucose Arterial Blood Ionized Calcium Urine WBC (Auto) 03/06/20 03/06/20 03/06/20 06:08 12:19 19:10 WBC RBC Hgb Hct MCV MCH RDW Plt Count Lymph % (Auto) [place] % (Auto) Eos % (Auto) Lymph # (Auto) [place] # (Auto) Eos # (Auto) Seg Neutrophils % Seg Neuts % (Manual) Lymphocytes % (Manual) Monocytes % (Manual) Basophils % (Manual) Seg Neutrophils # Seg Neutrophils # Man Lymphocytes # (Manual) Monocytes # (Manual) Eosinophils # (Manual) Basophils # (Manual) PT INR D-Dimer ABG pH POC ABG pCO2 POC ABG pO2 ABG pO2 ABG HCO3 ABG O2 Saturation ABG Base Excess ABG Hemoglobin ABG Oxyhemoglobin ABG Potassium ABG Glucose Oxyhemoglobin Carboxyhemoglobin Sodium 150 H D Potassium Chloride Carbon Dioxide 39 H D BUN 23 H Creatinine < 0.2 L Glucose 144 H POC Glucose 169 H 152 H Calcium Ferritin Total Bilirubin Alkaline Phosphatase Lactate Dehydrogenase Total Creatine Kinase CK-MB (CK-2) Rel Index Troponin T C-Reactive Protein Total Protein Albumin 3.3 L Prealbumin LDL Cholesterol Direct HDL Cholesterol Arterial Blood Glucose Arterial Blood Ionized Calcium Urine WBC (Auto) 03/06/20 03/07/20 03/07/20 23:58 04:25 04:25 WBC 22.1 H RBC Hgb 10.9 L Hct 32.9 L MCV MCH RDW 15.5 H Plt Count 739 H Lymph % (Auto) 7.8 L [place] % (Auto) Eos % (Auto) Lymph # (Auto) [place] # (Auto) 1.3 H Eos # (Auto) Seg Neutrophils % 85.5 H Seg Neuts % (Manual) Lymphocytes % (Manual) Monocytes % (Manual) Basophils % (Manual) Seg Neutrophils # 18.9 H Seg Neutrophils # Man Lymphocytes # (Manual) Monocytes # (Manual) Eosinophils # (Manual) Basophils # (Manual) PT INR D-Dimer ABG pH POC ABG pCO2 POC ABG pO2 ABG pO2 ABG HCO3 ABG O2 Saturation ABG Base Excess ABG Hemoglobin ABG Oxyhemoglobin ABG Potassium ABG Glucose Oxyhemoglobin Carboxyhemoglobin Sodium 146 H Potassium Chloride Carbon Dioxide 37 H BUN Creatinine < 0.2 L Glucose 118 H POC Glucose 111 H Calcium Ferritin Total Bilirubin Alkaline Phosphatase Lactate Dehydrogenase Total Creatine Kinase CK-MB (CK-2) Rel Index Troponin T C-Reactive Protein Total Protein Albumin 3.7 L Prealbumin LDL Cholesterol Direct HDL Cholesterol Arterial Blood Glucose Arterial Blood Ionized Calcium Urine WBC (Auto) 03/07/20 03/07/20 03/07/20 05:20 17:45 23:32 WBC RBC Hgb Hct MCV MCH RDW Plt Count Lymph % (Auto) [place] % (Auto) Eos % (Auto) Lymph # (Auto) [place] # (Auto) Eos # (Auto) Seg Neutrophils % Seg Neuts % (Manual) Lymphocytes % (Manual) Monocytes % (Manual) Basophils % (Manual) Seg Neutrophils # Seg Neutrophils # Man Lymphocytes # (Manual) Monocytes # (Manual) Eosinophils # (Manual) Basophils # (Manual) PT INR D-Dimer ABG pH POC ABG pCO2 POC ABG pO2 ABG pO2 ABG HCO3 ABG O2 Saturation ABG Base Excess ABG Hemoglobin ABG Oxyhemoglobin ABG Potassium ABG Glucose Oxyhemoglobin Carboxyhemoglobin Sodium Potassium Chloride Carbon Dioxide BUN Creatinine Glucose POC Glucose 113 H 124 H 210 H Calcium Ferritin Total Bilirubin Alkaline Phosphatase Lactate Dehydrogenase Total Creatine Kinase CK-MB (CK-2) Rel Index Troponin T C-Reactive Protein Total Protein Albumin Prealbumin LDL Cholesterol Direct HDL Cholesterol Arterial Blood Glucose Arterial Blood Ionized Calcium Urine WBC (Auto) 03/08/20 03/08/20 03/08/20 05:35 06:43 06:43 WBC 28.9 H RBC 3.53 L Hgb 9.7 L Hct 30.3 L MCV MCH RDW 15.6 H Plt Count 578 H Lymph % (Auto) [place] % (Auto) Eos % (Auto) Lymph # (Auto) [place] # (Auto) Eos # (Auto) Seg Neutrophils % Seg Neuts % (Manual) 93.0 H Lymphocytes % (Manual) 4.0 L Monocytes % (Manual) Basophils % (Manual) Seg Neutrophils # Seg Neutrophils # Man 26.9 H Lymphocytes # (Manual) Monocytes # (Manual) Eosinophils # (Manual) Basophils # (Manual) PT INR D-Dimer ABG pH POC ABG pCO2 POC ABG pO2 ABG pO2 ABG HCO3 ABG O2 Saturation ABG Base Excess ABG Hemoglobin ABG Oxyhemoglobin ABG Potassium ABG Glucose Oxyhemoglobin Carboxyhemoglobin Sodium 146 H Potassium Chloride Carbon Dioxide 35 H BUN 34 H Creatinine 0.3 L D Glucose 125 H POC Glucose 147 H Calcium Ferritin Total Bilirubin Alkaline Phosphatase Lactate Dehydrogenase Total Creatine Kinase CK-MB (CK-2) Rel Index Troponin T C-Reactive Protein Total Protein 5.9 L Albumin 3.2 L Prealbumin LDL Cholesterol Direct HDL Cholesterol Arterial Blood Glucose Arterial Blood Ionized Calcium Urine WBC (Auto) 03/08/20 03/08/20 03/08/20 08:57 11:14 12:34 WBC RBC Hgb Hct MCV MCH RDW Plt Count Lymph % (Auto) [place] % (Auto) Eos % (Auto) Lymph # (Auto) [place] # (Auto) Eos # (Auto) Seg Neutrophils % Seg Neuts % (Manual) Lymphocytes % (Manual) Monocytes % (Manual) Basophils % (Manual) Seg Neutrophils # Seg Neutrophils # Man Lymphocytes # (Manual) Monocytes # (Manual) Eosinophils # (Manual) Basophils # (Manual) PT INR D-Dimer ABG pH POC ABG pCO2 63.1 H POC ABG pO2 ABG pO2 ABG HCO3 ABG O2 Saturation ABG Base Excess ABG Hemoglobin 10.9 L ABG Oxyhemoglobin ABG Potassium ABG Glucose 176 H Oxyhemoglobin Carboxyhemoglobin Sodium Potassium Chloride Carbon Dioxide BUN Creatinine Glucose POC Glucose 171 H Calcium Ferritin Total Bilirubin Alkaline Phosphatase Lactate Dehydrogenase Total Creatine Kinase CK-MB (CK-2) Rel Index Troponin T C-Reactive Protein Total Protein Albumin Prealbumin LDL Cholesterol Direct HDL Cholesterol Arterial Blood Glucose 176 H Arterial Blood Ionized Calcium 4.5 L Urine WBC (Auto) 10.0 H 03/08/20 03/08/20 03/09/20 18:02 23:43 05:49 WBC RBC Hgb Hct MCV MCH RDW Plt Count Lymph % (Auto) [place] % (Auto) Eos % (Auto) Lymph # (Auto) [place] # (Auto) Eos # (Auto) Seg Neutrophils % Seg Neuts % (Manual) Lymphocytes % (Manual) Monocytes % (Manual) Basophils % (Manual) Seg Neutrophils # Seg Neutrophils # Man Lymphocytes # (Manual) Monocytes # (Manual) Eosinophils # (Manual) Basophils # (Manual) PT INR D-Dimer ABG pH POC ABG pCO2 POC ABG pO2 ABG pO2 ABG HCO3 ABG O2 Saturation ABG Base Excess ABG Hemoglobin ABG Oxyhemoglobin ABG Potassium ABG Glucose Oxyhemoglobin Carboxyhemoglobin Sodium Potassium Chloride Carbon Dioxide BUN Creatinine Glucose POC Glucose 157 H 134 H 163 H Calcium Ferritin Total Bilirubin Alkaline Phosphatase Lactate Dehydrogenase Total Creatine Kinase CK-MB (CK-2) Rel Index Troponin T C-Reactive Protein Total Protein Albumin Prealbumin LDL Cholesterol Direct HDL Cholesterol Arterial Blood Glucose Arterial Blood Ionized Calcium Urine WBC (Auto) 11/12/20 11/12/20 11/12/20 08:35 08:35 12:11 WBC 23.4 H RBC 3.36 L Hgb 9.3 L Hct 28.8 L MCV MCH RDW 15.9 H Plt Count 521 H Lymph % (Auto) [place] % (Auto) Eos % (Auto) Lymph # (Auto) [place] # (Auto) Eos # (Auto) Seg Neutrophils % Seg Neuts % (Manual) 87.0 H Lymphocytes % (Manual) 4.0 L Monocytes % (Manual) 9.0 H Basophils % (Manual) Seg Neutrophils # Seg Neutrophils # Man 20.4 H Lymphocytes # (Manual) 0.9 L Monocytes # (Manual) 2.1 H Eosinophils # (Manual) Basophils # (Manual) PT INR D-Dimer ABG pH POC ABG pCO2 POC ABG pO2 ABG pO2 ABG HCO3 ABG O2 Saturation ABG Base Excess ABG Hemoglobin ABG Oxyhemoglobin ABG Potassium ABG Glucose Oxyhemoglobin Carboxyhemoglobin Sodium 147 H Potassium Chloride Carbon Dioxide 37 H BUN 63 H Creatinine Glucose 154 H POC Glucose 128 H Calcium Ferritin Total Bilirubin Alkaline Phosphatase Lactate Dehydrogenase Total Creatine Kinase CK-MB (CK-2) Rel Index Troponin T C-Reactive Protein Total Protein Albumin Prealbumin LDL Cholesterol Direct HDL Cholesterol Arterial Blood Glucose Arterial Blood Ionized Calcium Urine WBC (Auto) 03/09/20 03/10/20 03/10/20 17:51 00:25 05:41 WBC RBC Hgb Hct MCV MCH RDW Plt Count Lymph % (Auto) [place] % (Auto) Eos % (Auto) Lymph # (Auto) [place] # (Auto) Eos # (Auto) Seg Neutrophils % Seg Neuts % (Manual) Lymphocytes % (Manual) Monocytes % (Manual) Basophils % (Manual) Seg Neutrophils # Seg Neutrophils # Man Lymphocytes # (Manual) Monocytes # (Manual) Eosinophils # (Manual) Basophils # (Manual) PT INR D-Dimer ABG pH POC ABG pCO2 POC ABG pO2 ABG pO2 ABG HCO3 ABG O2 Saturation ABG Base Excess ABG Hemoglobin ABG Oxyhemoglobin ABG Potassium ABG Glucose Oxyhemoglobin Carboxyhemoglobin Sodium Potassium Chloride Carbon Dioxide BUN Creatinine Glucose POC Glucose 127 H 128 H 153 H Calcium Ferritin Total Bilirubin Alkaline Phosphatase Lactate Dehydrogenase Total Creatine Kinase CK-MB (CK-2) Rel Index Troponin T C-Reactive Protein Total Protein Albumin Prealbumin LDL Cholesterol Direct HDL Cholesterol Arterial Blood Glucose Arterial Blood Ionized Calcium Urine WBC (Auto) 03/10/20 03/10/20 03/10/20 06:14 06:14 12:02 WBC 18.3 H RBC 3.45 L Hgb 9.5 L Hct 29.5 L MCV MCH RDW 16.1 H Plt Count 494 H Lymph % (Auto) [place] % (Auto) Eos % (Auto) Lymph # (Auto) [place] # (Auto) Eos # (Auto) Seg Neutrophils % Seg Neuts % (Manual) 95.0 H Lymphocytes % (Manual) 1.0 L Monocytes % (Manual) Basophils % (Manual) Seg Neutrophils # Seg Neutrophils # Man 17.4 H Lymphocytes # (Manual) 0.2 L Monocytes # (Manual) Eosinophils # (Manual) Basophils # (Manual) PT INR D-Dimer ABG pH POC ABG pCO2 POC ABG pO2 ABG pO2 ABG HCO3 ABG O2 Saturation ABG Base Excess ABG Hemoglobin ABG Oxyhemoglobin ABG Potassium ABG Glucose Oxyhemoglobin Carboxyhemoglobin Sodium 149 H Potassium Chloride Carbon Dioxide 35 H BUN 34 H Creatinine 0.2 L D Glucose 177 H POC Glucose 151 H Calcium Ferritin Total Bilirubin Alkaline Phosphatase Lactate Dehydrogenase Total Creatine Kinase CK-MB (CK-2) Rel Index Troponin T C-Reactive Protein Total Protein Albumin Prealbumin LDL Cholesterol Direct HDL Cholesterol Arterial Blood Glucose Arterial Blood Ionized Calcium Urine WBC (Auto) 03/10/20 03/10/20 03/11/20 17:41 23:53 05:02 WBC RBC Hgb Hct MCV MCH RDW Plt Count Lymph % (Auto) [place] % (Auto) Eos % (Auto) Lymph # (Auto) [place] # (Auto) Eos # (Auto) Seg Neutrophils % Seg Neuts % (Manual) Lymphocytes % (Manual) Monocytes % (Manual) Basophils % (Manual) Seg Neutrophils # Seg Neutrophils # Man Lymphocytes # (Manual) Monocytes # (Manual) Eosinophils # (Manual) Basophils # (Manual) PT INR D-Dimer ABG pH POC ABG pCO2 POC ABG pO2 ABG pO2 ABG HCO3 ABG O2 Saturation ABG Base Excess ABG Hemoglobin ABG Oxyhemoglobin ABG Potassium ABG Glucose Oxyhemoglobin Carboxyhemoglobin Sodium Potassium Chloride Carbon Dioxide BUN Creatinine Glucose POC Glucose 168 H 142 H 146 H Calcium Ferritin Total Bilirubin Alkaline Phosphatase Lactate Dehydrogenase Total Creatine Kinase CK-MB (CK-2) Rel Index Troponin T C-Reactive Protein Total Protein Albumin Prealbumin LDL Cholesterol Direct HDL Cholesterol Arterial Blood Glucose Arterial Blood Ionized Calcium Urine WBC (Auto) 03/11/20 03/11/20 03/11/20 11:30 14:01 14:01 WBC 19.7 H RBC 3.04 L Hgb 8.7 L Hct 25.8 L MCV MCH RDW 15.6 H Plt Count Lymph % (Auto) [place] % (Auto) Eos % (Auto) Lymph # (Auto) [place] # (Auto) Eos # (Auto) Seg Neutrophils % Seg Neuts % (Manual) Lymphocytes % (Manual) Monocytes % (Manual) Basophils % (Manual) Seg Neutrophils # Seg Neutrophils # Man Lymphocytes # (Manual) Monocytes # (Manual) Eosinophils # (Manual) Basophils # (Manual) PT INR D-Dimer ABG pH POC ABG pCO2 POC ABG pO2 ABG pO2 ABG HCO3 ABG O2 Saturation ABG Base Excess ABG Hemoglobin ABG Oxyhemoglobin ABG Potassium ABG Glucose Oxyhemoglobin Carboxyhemoglobin Sodium 151 H Potassium Chloride Carbon Dioxide 37 H BUN Creatinine < 0.2 L Glucose 171 H POC Glucose 248 H Calcium Ferritin Total Bilirubin Alkaline Phosphatase Lactate Dehydrogenase Total Creatine Kinase CK-MB (CK-2) Rel Index Troponin T C-Reactive Protein Total Protein Albumin Prealbumin LDL Cholesterol Direct HDL Cholesterol Arterial Blood Glucose Arterial Blood Ionized Calcium Urine WBC (Auto) 03/11/20 03/11/20 03/12/20 17:09 23:52 04:39 WBC 19.9 H RBC 3.16 L Hgb 8.9 L Hct 27.5 L MCV MCH RDW 15.7 H Plt Count Lymph % (Auto) 6.8 L [place] % (Auto) Eos % (Auto) Lymph # (Auto) [place] # (Auto) 1.2 H Eos # (Auto) Seg Neutrophils % 86.0 H Seg Neuts % (Manual) Lymphocytes % (Manual) Monocytes % (Manual) Basophils % (Manual) Seg Neutrophils # 17.1 H Seg Neutrophils # Man Lymphocytes # (Manual) Monocytes # (Manual) Eosinophils # (Manual) Basophils # (Manual) PT INR D-Dimer ABG pH POC ABG pCO2 POC ABG pO2 ABG pO2 ABG HCO3 ABG O2 Saturation ABG Base Excess ABG Hemoglobin ABG Oxyhemoglobin ABG Potassium ABG Glucose Oxyhemoglobin Carboxyhemoglobin Sodium Potassium Chloride Carbon Dioxide BUN Creatinine Glucose POC Glucose 124 H 131 H Calcium Ferritin Total Bilirubin Alkaline Phosphatase Lactate Dehydrogenase Total Creatine Kinase CK-MB (CK-2) Rel Index Troponin T C-Reactive Protein Total Protein Albumin Prealbumin LDL Cholesterol Direct HDL Cholesterol Arterial Blood Glucose Arterial Blood Ionized Calcium Urine WBC (Auto) 03/12/20 03/12/20 03/12/20 04:39 05:28 11:34 WBC RBC Hgb Hct MCV MCH RDW Plt Count Lymph % (Auto) [place] % (Auto) Eos % (Auto) Lymph # (Auto) [place] # (Auto) Eos # (Auto) Seg Neutrophils % Seg Neuts % (Manual) Lymphocytes % (Manual) Monocytes % (Manual) Basophils % (Manual) Seg Neutrophils # Seg Neutrophils # Man Lymphocytes # (Manual) Monocytes # (Manual) Eosinophils # (Manual) Basophils # (Manual) PT INR D-Dimer ABG pH POC ABG pCO2 POC ABG pO2 ABG pO2 ABG HCO3 ABG O2 Saturation ABG Base Excess ABG Hemoglobin ABG Oxyhemoglobin ABG Potassium ABG Glucose Oxyhemoglobin Carboxyhemoglobin Sodium 147 H Potassium Chloride Carbon Dioxide 40 H BUN Creatinine < 0.2 L Glucose 175 H POC Glucose 167 H 144 H Calcium Ferritin Total Bilirubin Alkaline Phosphatase Lactate Dehydrogenase Total Creatine Kinase CK-MB (CK-2) Rel Index Troponin T C-Reactive Protein Total Protein Albumin Prealbumin LDL Cholesterol Direct HDL Cholesterol Arterial Blood Glucose Arterial Blood Ionized Calcium Urine WBC (Auto) 03/12/20 03/12/20 03/13/20 17:32 23:57 05:57 WBC RBC Hgb Hct MCV MCH RDW Plt Count Lymph % (Auto) [place] % (Auto) Eos % (Auto) Lymph # (Auto) [place] # (Auto) Eos # (Auto) Seg Neutrophils % Seg Neuts % (Manual) Lymphocytes % (Manual) Monocytes % (Manual) Basophils % (Manual) Seg Neutrophils # Seg Neutrophils # Man Lymphocytes # (Manual) Monocytes # (Manual) Eosinophils # (Manual) Basophils # (Manual) PT INR D-Dimer ABG pH POC ABG pCO2 POC ABG pO2 ABG pO2 ABG HCO3 ABG O2 Saturation ABG Base Excess ABG Hemoglobin ABG Oxyhemoglobin ABG Potassium ABG Glucose Oxyhemoglobin Carboxyhemoglobin Sodium Potassium Chloride Carbon Dioxide BUN Creatinine Glucose POC Glucose 141 H 137 H 161 H Calcium Ferritin Total Bilirubin Alkaline Phosphatase Lactate Dehydrogenase Total Creatine Kinase CK-MB (CK-2) Rel Index Troponin T C-Reactive Protein Total Protein Albumin Prealbumin LDL Cholesterol Direct HDL Cholesterol Arterial Blood Glucose Arterial Blood Ionized Calcium Urine WBC (Auto) 03/13/20 03/13/20 03/13/20 12:28 14:14 18:39 WBC RBC Hgb Hct MCV MCH RDW Plt Count Lymph % (Auto) [place] % (Auto) Eos % (Auto) Lymph # (Auto) [place] # (Auto) Eos # (Auto) Seg Neutrophils % Seg Neuts % (Manual) Lymphocytes % (Manual) Monocytes % (Manual) Basophils % (Manual) Seg Neutrophils # Seg Neutrophils # Man Lymphocytes # (Manual) Monocytes # (Manual) Eosinophils # (Manual) Basophils # (Manual) PT INR D-Dimer ABG pH POC ABG pCO2 POC ABG pO2 ABG pO2 ABG HCO3 ABG O2 Saturation ABG Base Excess ABG Hemoglobin ABG Oxyhemoglobin ABG Potassium ABG Glucose Oxyhemoglobin Carboxyhemoglobin Sodium Potassium Chloride Carbon Dioxide 39 H BUN Creatinine < 0.2 L Glucose 129 H POC Glucose 130 H 125 H Calcium Ferritin Total Bilirubin Alkaline Phosphatase Lactate Dehydrogenase Total Creatine Kinase CK-MB (CK-2) Rel Index Troponin T C-Reactive Protein Total Protein Albumin Prealbumin LDL Cholesterol Direct HDL Cholesterol Arterial Blood Glucose Arterial Blood Ionized Calcium Urine WBC (Auto) 03/13/20 03/14/20 03/14/20 23:33 05:24 08:07 WBC 16.8 H RBC 2.81 L Hgb 7.9 L Hct 23.9 L MCV MCH RDW 15.9 H Plt Count Lymph % (Auto) [place] % (Auto) Eos % (Auto) Lymph # (Auto) [place] # (Auto) Eos # (Auto) Seg Neutrophils % Seg Neuts % (Manual) 84.0 H Lymphocytes % (Manual) 10.0 L Monocytes % (Manual) Basophils % (Manual) Seg Neutrophils # Seg Neutrophils # Man 14.1 H Lymphocytes # (Manual) Monocytes # (Manual) Eosinophils # (Manual) Basophils # (Manual) PT INR D-Dimer ABG pH POC ABG pCO2 POC ABG pO2 ABG pO2 ABG HCO3 ABG O2 Saturation ABG Base Excess ABG Hemoglobin ABG Oxyhemoglobin ABG Potassium ABG Glucose Oxyhemoglobin Carboxyhemoglobin Sodium Potassium Chloride Carbon Dioxide BUN Creatinine Glucose POC Glucose 146 H 125 H Calcium Ferritin Total Bilirubin Alkaline Phosphatase Lactate Dehydrogenase Total Creatine Kinase CK-MB (CK-2) Rel Index Troponin T C-Reactive Protein Total Protein Albumin Prealbumin LDL Cholesterol Direct HDL Cholesterol Arterial Blood Glucose Arterial Blood Ionized Calcium Urine WBC (Auto) 03/14/20 03/14/20 03/14/20 08:07 12:21 18:26 WBC RBC Hgb Hct MCV MCH RDW Plt Count Lymph % (Auto) [place] % (Auto) Eos % (Auto) Lymph # (Auto) [place] # (Auto) Eos # (Auto) Seg Neutrophils % Seg Neuts % (Manual) Lymphocytes % (Manual) Monocytes % (Manual) Basophils % (Manual) Seg Neutrophils # Seg Neutrophils # Man Lymphocytes # (Manual) Monocytes # (Manual) Eosinophils # (Manual) Basophils # (Manual) PT INR D-Dimer ABG pH POC ABG pCO2 POC ABG pO2 ABG pO2 ABG HCO3 ABG O2 Saturation ABG Base Excess ABG Hemoglobin ABG Oxyhemoglobin ABG Potassium ABG Glucose Oxyhemoglobin Carboxyhemoglobin Sodium Potassium Chloride 97.0 L Carbon Dioxide 37 H BUN Creatinine < 0.2 L Glucose 129 H POC Glucose 109 H 142 H Calcium 8.3 L Ferritin Total Bilirubin Alkaline Phosphatase Lactate Dehydrogenase Total Creatine Kinase CK-MB (CK-2) Rel Index Troponin T C-Reactive Protein Total Protein Albumin Prealbumin LDL Cholesterol Direct HDL Cholesterol Arterial Blood Glucose Arterial Blood Ionized Calcium Urine WBC (Auto) 03/14/20 03/15/20 03/15/20 23:57 05:46 08:06 WBC 19.7 H RBC 3.29 L Hgb 9.1 L Hct 28.0 L MCV MCH RDW 15.9 H Plt Count Lymph % (Auto) [place] % (Auto) Eos % (Auto) Lymph # (Auto) [place] # (Auto) Eos # (Auto) Seg Neutrophils % Seg Neuts % (Manual) Lymphocytes % (Manual) Monocytes % (Manual) Basophils % (Manual) Seg Neutrophils # Seg Neutrophils # Man Lymphocytes # (Manual) Monocytes # (Manual) Eosinophils # (Manual) Basophils # (Manual) PT INR D-Dimer ABG pH POC ABG pCO2 POC ABG pO2 ABG pO2 ABG HCO3 ABG O2 Saturation ABG Base Excess ABG Hemoglobin ABG Oxyhemoglobin ABG Potassium ABG Glucose Oxyhemoglobin Carboxyhemoglobin Sodium Potassium Chloride Carbon Dioxide BUN Creatinine Glucose POC Glucose 157 H 118 H Calcium Ferritin Total Bilirubin Alkaline Phosphatase Lactate Dehydrogenase Total Creatine Kinase CK-MB (CK-2) Rel Index Troponin T C-Reactive Protein Total Protein Albumin Prealbumin LDL Cholesterol Direct HDL Cholesterol Arterial Blood Glucose Arterial Blood Ionized Calcium Urine WBC (Auto) 03/15/20 03/15/20 03/15/20 08:06 12:44 18:09 WBC RBC Hgb Hct MCV MCH RDW Plt Count Lymph % (Auto) [place] % (Auto) Eos % (Auto) Lymph # (Auto) [place] # (Auto) Eos # (Auto) Seg Neutrophils % Seg Neuts % (Manual) Lymphocytes % (Manual) Monocytes % (Manual) Basophils % (Manual) Seg Neutrophils # Seg Neutrophils # Man Lymphocytes # (Manual) Monocytes # (Manual) Eosinophils # (Manual) Basophils # (Manual) PT INR D-Dimer ABG pH POC ABG pCO2 POC ABG pO2 ABG pO2 ABG HCO3 ABG O2 Saturation ABG Base Excess ABG Hemoglobin ABG Oxyhemoglobin ABG Potassium ABG Glucose Oxyhemoglobin Carboxyhemoglobin Sodium 136 L Potassium Chloride 93.6 L Carbon Dioxide 37 H BUN Creatinine < 0.2 L Glucose 132 H POC Glucose 151 H 164 H Calcium Ferritin Total Bilirubin Alkaline Phosphatase Lactate Dehydrogenase Total Creatine Kinase CK-MB (CK-2) Rel Index Troponin T C-Reactive Protein Total Protein Albumin Prealbumin LDL Cholesterol Direct HDL Cholesterol Arterial Blood Glucose Arterial Blood Ionized Calcium Urine WBC (Auto) 03/15/20 03/16/20 03/16/20 23:26 05:39 11:58 WBC RBC Hgb Hct MCV MCH RDW Plt Count Lymph % (Auto) [place] % (Auto) Eos % (Auto) Lymph # (Auto) [place] # (Auto) Eos # (Auto) Seg Neutrophils % Seg Neuts % (Manual) Lymphocytes % (Manual) Monocytes % (Manual) Basophils % (Manual) Seg Neutrophils # Seg Neutrophils # Man Lymphocytes # (Manual) Monocytes # (Manual) Eosinophils # (Manual) Basophils # (Manual) PT INR D-Dimer ABG pH POC ABG pCO2 POC ABG pO2 ABG pO2 ABG HCO3 ABG O2 Saturation ABG Base Excess ABG Hemoglobin ABG Oxyhemoglobin ABG Potassium ABG Glucose Oxyhemoglobin Carboxyhemoglobin Sodium Potassium Chloride Carbon Dioxide BUN Creatinine Glucose POC Glucose 136 H 116 H 109 H Calcium Ferritin Total Bilirubin Alkaline Phosphatase Lactate Dehydrogenase Total Creatine Kinase CK-MB (CK-2) Rel Index Troponin T C-Reactive Protein Total Protein Albumin Prealbumin LDL Cholesterol Direct HDL Cholesterol Arterial Blood Glucose Arterial Blood Ionized Calcium Urine WBC (Auto) 03/16/20 03/17/20 03/17/20 23:56 04:40 04:40 WBC 18.0 H RBC 3.33 L Hgb 9.5 L Hct 28.8 L MCV MCH RDW 16.4 H Plt Count 499 H Lymph % (Auto) [place] % (Auto) Eos % (Auto) Lymph # (Auto) [place] # (Auto) Eos # (Auto) Seg Neutrophils % Seg Neuts % (Manual) 82.0 H Lymphocytes % (Manual) 8.0 L Monocytes % (Manual) Basophils % (Manual) Seg Neutrophils # Seg Neutrophils # Man 14.8 H Lymphocytes # (Manual) Monocytes # (Manual) 1.3 H Eosinophils # (Manual) Basophils # (Manual) 0.2 H PT INR D-Dimer ABG pH POC ABG pCO2 POC ABG pO2 ABG pO2 ABG HCO3 ABG O2 Saturation ABG Base Excess ABG Hemoglobin ABG Oxyhemoglobin ABG Potassium ABG Glucose Oxyhemoglobin Carboxyhemoglobin Sodium Potassium Chloride 97.7 L Carbon Dioxide 32 H BUN Creatinine < 0.2 L Glucose 114 H POC Glucose 131 H Calcium Ferritin Total Bilirubin Alkaline Phosphatase Lactate Dehydrogenase Total Creatine Kinase CK-MB (CK-2) Rel Index Troponin T C-Reactive Protein Total Protein Albumin Prealbumin LDL Cholesterol Direct HDL Cholesterol Arterial Blood Glucose Arterial Blood Ionized Calcium Urine WBC (Auto) 03/18/20 03/18/20 03/18/20 00:21 05:21 11:55 WBC RBC Hgb Hct MCV MCH RDW Plt Count Lymph % (Auto) [place] % (Auto) Eos % (Auto) Lymph # (Auto) [place] # (Auto) Eos # (Auto) Seg Neutrophils % Seg Neuts % (Manual) Lymphocytes % (Manual) Monocytes % (Manual) Basophils % (Manual) Seg Neutrophils # Seg Neutrophils # Man Lymphocytes # (Manual) Monocytes # (Manual) Eosinophils # (Manual) Basophils # (Manual) PT INR D-Dimer ABG pH POC ABG pCO2 POC ABG pO2 ABG pO2 ABG HCO3 ABG O2 Saturation ABG Base Excess ABG Hemoglobin ABG Oxyhemoglobin ABG Potassium ABG Glucose Oxyhemoglobin Carboxyhemoglobin Sodium Potassium Chloride Carbon Dioxide BUN Creatinine Glucose POC Glucose 124 H 138 H 119 H Calcium Ferritin Total Bilirubin Alkaline Phosphatase Lactate Dehydrogenase Total Creatine Kinase CK-MB (CK-2) Rel Index Troponin T C-Reactive Protein Total Protein Albumin Prealbumin LDL Cholesterol Direct HDL Cholesterol Arterial Blood Glucose Arterial Blood Ionized Calcium Urine WBC (Auto) 03/18/20 03/18/20 03/19/20 17:03 23:58 05:24 WBC RBC Hgb Hct MCV MCH RDW Plt Count Lymph % (Auto) [place] % (Auto) Eos % (Auto) Lymph # (Auto) [place] # (Auto) Eos # (Auto) Seg Neutrophils % Seg Neuts % (Manual) Lymphocytes % (Manual) Monocytes % (Manual) Basophils % (Manual) Seg Neutrophils # Seg Neutrophils # Man Lymphocytes # (Manual) Monocytes # (Manual) Eosinophils # (Manual) Basophils # (Manual) PT INR D-Dimer ABG pH POC ABG pCO2 POC ABG pO2 ABG pO2 ABG HCO3 ABG O2 Saturation ABG Base Excess ABG Hemoglobin ABG Oxyhemoglobin ABG Potassium ABG Glucose Oxyhemoglobin Carboxyhemoglobin Sodium Potassium Chloride Carbon Dioxide BUN Creatinine Glucose POC Glucose 128 H 128 H 115 H Calcium Ferritin Total Bilirubin Alkaline Phosphatase Lactate Dehydrogenase Total Creatine Kinase CK-MB (CK-2) Rel Index Troponin T C-Reactive Protein Total Protein Albumin Prealbumin LDL Cholesterol Direct HDL Cholesterol Arterial Blood Glucose Arterial Blood Ionized Calcium Urine WBC (Auto) 03/19/20 03/19/20 03/19/20 08:05 08:05 11:56 WBC 16.8 H RBC 3.36 L Hgb 9.4 L Hct 28.8 L MCV MCH RDW 17.4 H Plt Count 567 H Lymph % (Auto) 7.8 L [place] % (Auto) Eos % (Auto) Lymph # (Auto) [place] # (Auto) 1.2 H Eos # (Auto) Seg Neutrophils % 83.5 H Seg Neuts % (Manual) Lymphocytes % (Manual) Monocytes % (Manual) Basophils % (Manual) Seg Neutrophils # 14.1 H Seg Neutrophils # Man Lymphocytes # (Manual) Monocytes # (Manual) Eosinophils # (Manual) Basophils # (Manual) PT INR D-Dimer ABG pH POC ABG pCO2 POC ABG pO2 ABG pO2 ABG HCO3 ABG O2 Saturation ABG Base Excess ABG Hemoglobin ABG Oxyhemoglobin ABG Potassium ABG Glucose Oxyhemoglobin Carboxyhemoglobin Sodium Potassium Chloride Carbon Dioxide 36 H BUN Creatinine < 0.2 L Glucose 135 H POC Glucose 128 H Calcium Ferritin Total Bilirubin Alkaline Phosphatase Lactate Dehydrogenase Total Creatine Kinase CK-MB (CK-2) Rel Index Troponin T C-Reactive Protein Total Protein Albumin Prealbumin LDL Cholesterol Direct HDL Cholesterol Arterial Blood Glucose Arterial Blood Ionized Calcium Urine WBC (Auto) 03/19/20 03/20/20 03/20/20 23:59 05:12 16:52 WBC RBC Hgb Hct MCV MCH RDW Plt Count Lymph % (Auto) [place] % (Auto) Eos % (Auto) Lymph # (Auto) [place] # (Auto) Eos # (Auto) Seg Neutrophils % Seg Neuts % (Manual) Lymphocytes % (Manual) Monocytes % (Manual) Basophils % (Manual) Seg Neutrophils # Seg Neutrophils # Man Lymphocytes # (Manual) Monocytes # (Manual) Eosinophils # (Manual) Basophils # (Manual) PT INR D-Dimer ABG pH POC ABG pCO2 POC ABG pO2 ABG pO2 ABG HCO3 ABG O2 Saturation ABG Base Excess ABG Hemoglobin ABG Oxyhemoglobin ABG Potassium ABG Glucose Oxyhemoglobin Carboxyhemoglobin Sodium Potassium Chloride Carbon Dioxide BUN Creatinine Glucose POC Glucose 120 H 131 H 124 H Calcium Ferritin Total Bilirubin Alkaline Phosphatase Lactate Dehydrogenase Total Creatine Kinase CK-MB (CK-2) Rel Index Troponin T C-Reactive Protein Total Protein Albumin Prealbumin LDL Cholesterol Direct HDL Cholesterol Arterial Blood Glucose Arterial Blood Ionized Calcium Urine WBC (Auto) 03/20/20 03/21/20 03/21/20 23:35 04:50 07:35 WBC 15.2 H RBC 3.39 L Hgb 9.4 L Hct 29.4 L MCV MCH RDW 17.6 H Plt Count 518 H Lymph % (Auto) [place] % (Auto) Eos % (Auto) Lymph # (Auto) [place] # (Auto) Eos # (Auto) Seg Neutrophils % Seg Neuts % (Manual) 83.0 H Lymphocytes % (Manual) 10.0 L Monocytes % (Manual) Basophils % (Manual) 2.0 H Seg Neutrophils # Seg Neutrophils # Man 12.6 H Lymphocytes # (Manual) Monocytes # (Manual) Eosinophils # (Manual) Basophils # (Manual) 0.3 H PT INR D-Dimer ABG pH POC ABG pCO2 POC ABG pO2 ABG pO2 ABG HCO3 ABG O2 Saturation ABG Base Excess ABG Hemoglobin ABG Oxyhemoglobin ABG Potassium ABG Glucose Oxyhemoglobin Carboxyhemoglobin Sodium Potassium Chloride Carbon Dioxide BUN Creatinine Glucose POC Glucose 125 H 127 H Calcium Ferritin Total Bilirubin Alkaline Phosphatase Lactate Dehydrogenase Total Creatine Kinase CK-MB (CK-2) Rel Index Troponin T C-Reactive Protein Total Protein Albumin Prealbumin LDL Cholesterol Direct HDL Cholesterol Arterial Blood Glucose Arterial Blood Ionized Calcium Urine WBC (Auto) 03/21/20 03/21/20 03/21/20 07:35 11:45 17:22 WBC RBC Hgb Hct MCV MCH RDW Plt Count Lymph % (Auto) [place] % (Auto) Eos % (Auto) Lymph # (Auto) [place] # (Auto) Eos # (Auto) Seg Neutrophils % Seg Neuts % (Manual) Lymphocytes % (Manual) Monocytes % (Manual) Basophils % (Manual) Seg Neutrophils # Seg Neutrophils # Man Lymphocytes # (Manual) Monocytes # (Manual) Eosinophils # (Manual) Basophils # (Manual) PT INR D-Dimer ABG pH POC ABG pCO2 POC ABG pO2 ABG pO2 ABG HCO3 ABG O2 Saturation ABG Base Excess ABG Hemoglobin ABG Oxyhemoglobin ABG Potassium ABG Glucose Oxyhemoglobin Carboxyhemoglobin Sodium 136 L Potassium Chloride 97.7 L Carbon Dioxide 32 H BUN Creatinine < 0.2 L Glucose 103 H POC Glucose 126 H 120 H Calcium Ferritin Total Bilirubin Alkaline Phosphatase Lactate Dehydrogenase Total Creatine Kinase CK-MB (CK-2) Rel Index Troponin T C-Reactive Protein Total Protein Albumin Prealbumin LDL Cholesterol Direct HDL Cholesterol Arterial Blood Glucose Arterial Blood Ionized Calcium Urine WBC (Auto) 03/22/20 03/22/20 03/22/20 05:09 06:34 06:34 WBC 17.5 H RBC 3.52 L Hgb 10.0 L Hct 30.7 L MCV MCH RDW 17.5 H Plt Count 499 H Lymph % (Auto) [place] % (Auto) Eos % (Auto) Lymph # (Auto) [place] # (Auto) Eos # (Auto) Seg Neutrophils % Seg Neuts % (Manual) 80.0 H Lymphocytes % (Manual) 10.0 L Monocytes % (Manual) Basophils % (Manual) Seg Neutrophils # Seg Neutrophils # Man 14.0 H Lymphocytes # (Manual) Monocytes # (Manual) Eosinophils # (Manual) Basophils # (Manual) PT INR D-Dimer ABG pH POC ABG pCO2 POC ABG pO2 ABG pO2 ABG HCO3 ABG O2 Saturation ABG Base Excess ABG Hemoglobin ABG Oxyhemoglobin ABG Potassium ABG Glucose Oxyhemoglobin Carboxyhemoglobin Sodium Potassium Chloride 96.6 L Carbon Dioxide 38 H BUN Creatinine < 0.2 L Glucose 139 H POC Glucose 125 H Calcium Ferritin Total Bilirubin Alkaline Phosphatase Lactate Dehydrogenase Total Creatine Kinase CK-MB (CK-2) Rel Index Troponin T C-Reactive Protein Total Protein Albumin Prealbumin LDL Cholesterol Direct HDL Cholesterol Arterial Blood Glucose Arterial Blood Ionized Calcium Urine WBC (Auto) 03/22/20 03/22/20 03/22/20 11:45 18:00 23:32 WBC RBC Hgb Hct MCV MCH RDW Plt Count Lymph % (Auto) [place] % (Auto) Eos % (Auto) Lymph # (Auto) [place] # (Auto) Eos # (Auto) Seg Neutrophils % Seg Neuts % (Manual) Lymphocytes % (Manual) Monocytes % (Manual) Basophils % (Manual) Seg Neutrophils # Seg Neutrophils # Man Lymphocytes # (Manual) Monocytes # (Manual) Eosinophils # (Manual) Basophils # (Manual) PT INR D-Dimer ABG pH POC ABG pCO2 POC ABG pO2 ABG pO2 ABG HCO3 ABG O2 Saturation ABG Base Excess ABG Hemoglobin ABG Oxyhemoglobin ABG Potassium ABG Glucose Oxyhemoglobin Carboxyhemoglobin Sodium Potassium Chloride Carbon Dioxide BUN Creatinine Glucose POC Glucose 135 H 133 H Calcium Ferritin Total Bilirubin Alkaline Phosphatase Lactate Dehydrogenase Total Creatine Kinase CK-MB (CK-2) Rel Index Troponin T 0.113 H* C-Reactive Protein Total Protein Albumin Prealbumin LDL Cholesterol Direct HDL Cholesterol Arterial Blood Glucose Arterial Blood Ionized Calcium Urine WBC (Auto) 03/23/20 03/23/20 03/23/20 01:47 06:21 07:57 WBC RBC Hgb Hct MCV MCH RDW Plt Count Lymph % (Auto) [place] % (Auto) Eos % (Auto) Lymph # (Auto) [place] # (Auto) Eos # (Auto) Seg Neutrophils % Seg Neuts % (Manual) Lymphocytes % (Manual) Monocytes % (Manual) Basophils % (Manual) Seg Neutrophils # Seg Neutrophils # Man Lymphocytes # (Manual) Monocytes # (Manual) Eosinophils # (Manual) Basophils # (Manual) PT INR D-Dimer ABG pH POC ABG pCO2 POC ABG pO2 ABG pO2 ABG HCO3 ABG O2 Saturation ABG Base Excess ABG Hemoglobin ABG Oxyhemoglobin ABG Potassium ABG Glucose Oxyhemoglobin Carboxyhemoglobin Sodium Potassium Chloride Carbon Dioxide BUN Creatinine Glucose POC Glucose 130 H Calcium Ferritin Total Bilirubin Alkaline Phosphatase Lactate Dehydrogenase Total Creatine Kinase CK-MB (CK-2) Rel Index Troponin T 0.143 H* D 0.105 H* D C-Reactive Protein Total Protein Albumin Prealbumin LDL Cholesterol Direct HDL Cholesterol Arterial Blood Glucose Arterial Blood Ionized Calcium Urine WBC (Auto) 03/23/20 03/24/20 03/24/20 12:02 05:33 07:15 WBC 18.0 H RBC Hgb 11.0 L Hct 34.0 L MCV MCH RDW 17.4 H Plt Count 520 H Lymph % (Auto) [place] % (Auto) Eos % (Auto) Lymph # (Auto) [place] # (Auto) Eos # (Auto) Seg Neutrophils % Seg Neuts % (Manual) 88.0 H Lymphocytes % (Manual) 7.0 L Monocytes % (Manual) Basophils % (Manual) Seg Neutrophils # Seg Neutrophils # Man 15.8 H Lymphocytes # (Manual) Monocytes # (Manual) Eosinophils # (Manual) Basophils # (Manual) PT INR D-Dimer ABG pH POC ABG pCO2 POC ABG pO2 ABG pO2 ABG HCO3 ABG O2 Saturation ABG Base Excess ABG Hemoglobin ABG Oxyhemoglobin ABG Potassium ABG Glucose Oxyhemoglobin Carboxyhemoglobin Sodium Potassium Chloride Carbon Dioxide BUN Creatinine Glucose POC Glucose 137 H 112 H Calcium Ferritin Total Bilirubin Alkaline Phosphatase Lactate Dehydrogenase Total Creatine Kinase CK-MB (CK-2) Rel Index Troponin T C-Reactive Protein Total Protein Albumin Prealbumin LDL Cholesterol Direct HDL Cholesterol Arterial Blood Glucose Arterial Blood Ionized Calcium Urine WBC (Auto) 03/24/20 03/24/20 03/24/20 07:15 11:22 23:30 WBC RBC Hgb Hct MCV MCH RDW Plt Count Lymph % (Auto) [place] % (Auto) Eos % (Auto) Lymph # (Auto) [place] # (Auto) Eos # (Auto) Seg Neutrophils % Seg Neuts % (Manual) Lymphocytes % (Manual) Monocytes % (Manual) Basophils % (Manual) Seg Neutrophils # Seg Neutrophils # Man Lymphocytes # (Manual) Monocytes # (Manual) Eosinophils # (Manual) Basophils # (Manual) PT INR D-Dimer ABG pH POC ABG pCO2 POC ABG pO2 ABG pO2 ABG HCO3 ABG O2 Saturation ABG Base Excess ABG Hemoglobin ABG Oxyhemoglobin ABG Potassium ABG Glucose Oxyhemoglobin Carboxyhemoglobin Sodium Potassium Chloride 96.6 L Carbon Dioxide 38 H BUN Creatinine < 0.2 L Glucose 141 H POC Glucose 130 H 120 H Calcium Ferritin Total Bilirubin Alkaline Phosphatase Lactate Dehydrogenase Total Creatine Kinase CK-MB (CK-2) Rel Index Troponin T C-Reactive Protein Total Protein Albumin Prealbumin LDL Cholesterol Direct HDL Cholesterol Arterial Blood Glucose Arterial Blood Ionized Calcium Urine WBC (Auto) 03/25/20 03/25/20 03/25/20 05:48 17:53 23:18 WBC RBC Hgb Hct MCV MCH RDW Plt Count Lymph % (Auto) [place] % (Auto) Eos % (Auto) Lymph # (Auto) [place] # (Auto) Eos # (Auto) Seg Neutrophils % Seg Neuts % (Manual) Lymphocytes % (Manual) Monocytes % (Manual) Basophils % (Manual) Seg Neutrophils # Seg Neutrophils # Man Lymphocytes # (Manual) Monocytes # (Manual) Eosinophils # (Manual) Basophils # (Manual) PT INR D-Dimer ABG pH POC ABG pCO2 POC ABG pO2 ABG pO2 ABG HCO3 ABG O2 Saturation ABG Base Excess ABG Hemoglobin ABG Oxyhemoglobin ABG Potassium ABG Glucose Oxyhemoglobin Carboxyhemoglobin Sodium Potassium Chloride Carbon Dioxide BUN Creatinine Glucose POC Glucose 124 H 109 H 131 H Calcium Ferritin Total Bilirubin Alkaline Phosphatase Lactate Dehydrogenase Total Creatine Kinase CK-MB (CK-2) Rel Index Troponin T C-Reactive Protein Total Protein Albumin Prealbumin LDL Cholesterol Direct HDL Cholesterol Arterial Blood Glucose Arterial Blood Ionized Calcium Urine WBC (Auto) 03/26/20 03/26/20 03/26/20 05:21 08:49 08:49 WBC 19.7 H RBC Hgb 10.7 L Hct 33.5 L MCV MCH 27 L RDW 17.1 H Plt Count 480 H Lymph % (Auto) 5.7 L [place] % (Auto) Eos % (Auto) Lymph # (Auto) 1.1 L [place] # (Auto) 1.2 H Eos # (Auto) Seg Neutrophils % 87.7 H Seg Neuts % (Manual) Lymphocytes % (Manual) Monocytes % (Manual) Basophils % (Manual) Seg Neutrophils # 17.2 H Seg Neutrophils # Man Lymphocytes # (Manual) Monocytes # (Manual) Eosinophils # (Manual) Basophils # (Manual) PT INR D-Dimer ABG pH POC ABG pCO2 POC ABG pO2 ABG pO2 ABG HCO3 ABG O2 Saturation ABG Base Excess ABG Hemoglobin ABG Oxyhemoglobin ABG Potassium ABG Glucose Oxyhemoglobin Carboxyhemoglobin Sodium Potassium Chloride 97.2 L Carbon Dioxide 36 H BUN Creatinine < 0.2 L Glucose 127 H POC Glucose 116 H Calcium Ferritin Total Bilirubin Alkaline Phosphatase Lactate Dehydrogenase Total Creatine Kinase CK-MB (CK-2) Rel Index Troponin T C-Reactive Protein Total Protein Albumin Prealbumin LDL Cholesterol Direct HDL Cholesterol Arterial Blood Glucose Arterial Blood Ionized Calcium Urine WBC (Auto) 03/26/20 03/26/20 03/26/20 11:38 18:44 23:06 WBC RBC Hgb Hct MCV MCH RDW Plt Count Lymph % (Auto) [place] % (Auto) Eos % (Auto) Lymph # (Auto) [place] # (Auto) Eos # (Auto) Seg Neutrophils % Seg Neuts % (Manual) Lymphocytes % (Manual) Monocytes % (Manual) Basophils % (Manual) Seg Neutrophils # Seg Neutrophils # Man Lymphocytes # (Manual) Monocytes # (Manual) Eosinophils # (Manual) Basophils # (Manual) PT INR D-Dimer ABG pH POC ABG pCO2 POC ABG pO2 ABG pO2 ABG HCO3 ABG O2 Saturation ABG Base Excess ABG Hemoglobin ABG Oxyhemoglobin ABG Potassium ABG Glucose Oxyhemoglobin Carboxyhemoglobin Sodium Potassium Chloride Carbon Dioxide BUN Creatinine Glucose POC Glucose 120 H 111 H 134 H Calcium Ferritin Total Bilirubin Alkaline Phosphatase Lactate Dehydrogenase Total Creatine Kinase CK-MB (CK-2) Rel Index Troponin T C-Reactive Protein Total Protein Albumin Prealbumin LDL Cholesterol Direct HDL Cholesterol Arterial Blood Glucose Arterial Blood Ionized Calcium Urine WBC (Auto) 03/27/20 03/27/20 03/27/20 05:41 05:59 05:59 WBC 18.6 H RBC Hgb 10.1 L Hct 31.4 L MCV MCH RDW 17.2 H Plt Count Lymph % (Auto) 8.0 L [place] % (Auto) Eos % (Auto) Lymph # (Auto) [place] # (Auto) 1.2 H Eos # (Auto) Seg Neutrophils % 84.7 H Seg Neuts % (Manual) Lymphocytes % (Manual) Monocytes % (Manual) Basophils % (Manual) Seg Neutrophils # 15.8 H Seg Neutrophils # Man Lymphocytes # (Manual) Monocytes # (Manual) Eosinophils # (Manual) Basophils # (Manual) PT INR D-Dimer ABG pH POC ABG pCO2 POC ABG pO2 ABG pO2 ABG HCO3 ABG O2 Saturation ABG Base Excess ABG Hemoglobin ABG Oxyhemoglobin ABG Potassium ABG Glucose Oxyhemoglobin Carboxyhemoglobin Sodium Potassium Chloride Carbon Dioxide 34 H BUN Creatinine < 0.2 L Glucose 127 H POC Glucose 129 H Calcium Ferritin Total Bilirubin Alkaline Phosphatase Lactate Dehydrogenase Total Creatine Kinase CK-MB (CK-2) Rel Index Troponin T C-Reactive Protein Total Protein Albumin Prealbumin LDL Cholesterol Direct HDL Cholesterol Arterial Blood Glucose Arterial Blood Ionized Calcium Urine WBC (Auto) 03/27/20 03/27/20 03/28/20 17:28 23:22 05:23 WBC RBC Hgb Hct MCV MCH RDW Plt Count Lymph % (Auto) [place] % (Auto) Eos % (Auto) Lymph # (Auto) [place] # (Auto) Eos # (Auto) Seg Neutrophils % Seg Neuts % (Manual) Lymphocytes % (Manual) Monocytes % (Manual) Basophils % (Manual) Seg Neutrophils # Seg Neutrophils # Man Lymphocytes # (Manual) Monocytes # (Manual) Eosinophils # (Manual) Basophils # (Manual) PT INR D-Dimer ABG pH POC ABG pCO2 POC ABG pO2 ABG pO2 ABG HCO3 ABG O2 Saturation ABG Base Excess ABG Hemoglobin ABG Oxyhemoglobin ABG Potassium ABG Glucose Oxyhemoglobin Carboxyhemoglobin Sodium Potassium Chloride Carbon Dioxide BUN Creatinine Glucose POC Glucose 108 H 119 H 129 H Calcium Ferritin Total Bilirubin Alkaline Phosphatase Lactate Dehydrogenase Total Creatine Kinase CK-MB (CK-2) Rel Index Troponin T C-Reactive Protein Total Protein Albumin Prealbumin LDL Cholesterol Direct HDL Cholesterol Arterial Blood Glucose Arterial Blood Ionized Calcium Urine WBC (Auto) 03/28/20 03/28/20 03/28/20 10:28 10:28 11:36 WBC 23.6 H RBC 3.62 L Hgb 10.0 L Hct 30.8 L MCV MCH RDW 16.4 H Plt Count Lymph % (Auto) [place] % (Auto) Eos % (Auto) Lymph # (Auto) [place] # (Auto) Eos # (Auto) Seg Neutrophils % Seg Neuts % (Manual) 89.0 H Lymphocytes % (Manual) 5.0 L Monocytes % (Manual) Basophils % (Manual) Seg Neutrophils # Seg Neutrophils # Man 21.0 H Lymphocytes # (Manual) Monocytes # (Manual) 1.2 H Eosinophils # (Manual) Basophils # (Manual) 0.2 H PT INR D-Dimer ABG pH POC ABG pCO2 POC ABG pO2 ABG pO2 ABG HCO3 ABG O2 Saturation ABG Base Excess ABG Hemoglobin ABG Oxyhemoglobin ABG Potassium ABG Glucose Oxyhemoglobin Carboxyhemoglobin Sodium 134 L Potassium Chloride 94.2 L Carbon Dioxide 35 H BUN Creatinine < 0.2 L Glucose 134 H POC Glucose Calcium Ferritin Total Bilirubin Alkaline Phosphatase Lactate Dehydrogenase Total Creatine Kinase CK-MB (CK-2) Rel Index Troponin T C-Reactive Protein Total Protein Albumin Prealbumin LDL Cholesterol Direct HDL Cholesterol Arterial Blood Glucose Arterial Blood Ionized Calcium Urine WBC (Auto) 39.0 H 03/28/20 03/28/20 03/28/20 11:51 17:08 17:17 WBC RBC Hgb Hct MCV MCH RDW Plt Count Lymph % (Auto) [place] % (Auto) Eos % (Auto) Lymph # (Auto) [place] # (Auto) Eos # (Auto) Seg Neutrophils % Seg Neuts % (Manual) Lymphocytes % (Manual) Monocytes % (Manual) Basophils % (Manual) Seg Neutrophils # Seg Neutrophils # Man Lymphocytes # (Manual) Monocytes # (Manual) Eosinophils # (Manual) Basophils # (Manual) PT INR D-Dimer ABG pH POC ABG pCO2 POC ABG pO2 ABG pO2 ABG HCO3 ABG O2 Saturation ABG Base Excess ABG Hemoglobin ABG Oxyhemoglobin ABG Potassium ABG Glucose Oxyhemoglobin Carboxyhemoglobin Sodium Potassium Chloride Carbon Dioxide BUN Creatinine Glucose POC Glucose 123 H 112 H Calcium Ferritin Total Bilirubin Alkaline Phosphatase Lactate Dehydrogenase Total Creatine Kinase 47 L CK-MB (CK-2) Rel Index 4.6 H Troponin T 0.090 H C-Reactive Protein Total Protein Albumin Prealbumin LDL Cholesterol Direct HDL Cholesterol Arterial Blood Glucose Arterial Blood Ionized Calcium Urine WBC (Auto) 03/28/20 03/29/20 03/29/20 23:22 05:22 10:58 WBC RBC Hgb Hct MCV MCH RDW Plt Count Lymph % (Auto) [place] % (Auto) Eos % (Auto) Lymph # (Auto) [place] # (Auto) Eos # (Auto) Seg Neutrophils % Seg Neuts % (Manual) Lymphocytes % (Manual) Monocytes % (Manual) Basophils % (Manual) Seg Neutrophils # Seg Neutrophils # Man Lymphocytes # (Manual) Monocytes # (Manual) Eosinophils # (Manual) Basophils # (Manual) PT INR D-Dimer ABG pH POC ABG pCO2 POC ABG pO2 ABG pO2 ABG HCO3 ABG O2 Saturation ABG Base Excess ABG Hemoglobin ABG Oxyhemoglobin ABG Potassium ABG Glucose Oxyhemoglobin Carboxyhemoglobin Sodium Potassium Chloride Carbon Dioxide BUN Creatinine Glucose POC Glucose 122 H 116 H 133 H Calcium Ferritin Total Bilirubin Alkaline Phosphatase Lactate Dehydrogenase Total Creatine Kinase CK-MB (CK-2) Rel Index Troponin T C-Reactive Protein Total Protein Albumin Prealbumin LDL Cholesterol Direct HDL Cholesterol Arterial Blood Glucose Arterial Blood Ionized Calcium Urine WBC (Auto) 03/29/20 03/29/20 03/30/20 17:18 23:14 04:57 WBC RBC Hgb Hct MCV MCH RDW Plt Count Lymph % (Auto) [place] % (Auto) Eos % (Auto) Lymph # (Auto) [place] # (Auto) Eos # (Auto) Seg Neutrophils % Seg Neuts % (Manual) Lymphocytes % (Manual) Monocytes % (Manual) Basophils % (Manual) Seg Neutrophils # Seg Neutrophils # Man Lymphocytes # (Manual) Monocytes # (Manual) Eosinophils # (Manual) Basophils # (Manual) PT INR D-Dimer ABG pH POC ABG pCO2 POC ABG pO2 ABG pO2 ABG HCO3 ABG O2 Saturation ABG Base Excess ABG Hemoglobin ABG Oxyhemoglobin ABG Potassium ABG Glucose Oxyhemoglobin Carboxyhemoglobin Sodium Potassium Chloride Carbon Dioxide BUN Creatinine Glucose POC Glucose 111 H 114 H 130 H Calcium Ferritin Total Bilirubin Alkaline Phosphatase Lactate Dehydrogenase Total Creatine Kinase CK-MB (CK-2) Rel Index Troponin T C-Reactive Protein Total Protein Albumin Prealbumin LDL Cholesterol Direct HDL Cholesterol Arterial Blood Glucose Arterial Blood Ionized Calcium Urine WBC (Auto) 03/30/20 03/30/20 03/30/20 11:38 14:47 14:47 WBC 19.9 H RBC Hgb 10.9 L Hct 34.4 L MCV MCH 27 L RDW 16.5 H Plt Count 441 H Lymph % (Auto) 6.4 L [place] % (Auto) Eos % (Auto) Lymph # (Auto) [place] # (Auto) 1.4 H Eos # (Auto) Seg Neutrophils % 86.1 H Seg Neuts % (Manual) Lymphocytes % (Manual) Monocytes % (Manual) Basophils % (Manual) Seg Neutrophils # 17.1 H Seg Neutrophils # Man Lymphocytes # (Manual) Monocytes # (Manual) Eosinophils # (Manual) Basophils # (Manual) PT INR D-Dimer ABG pH POC ABG pCO2 POC ABG pO2 ABG pO2 ABG HCO3 ABG O2 Saturation ABG Base Excess ABG Hemoglobin ABG Oxyhemoglobin ABG Potassium ABG Glucose Oxyhemoglobin Carboxyhemoglobin Sodium 133 L Potassium Chloride 94.6 L Carbon Dioxide 33 H BUN Creatinine < 0.2 L Glucose 194 H POC Glucose 139 H Calcium Ferritin Total Bilirubin Alkaline Phosphatase Lactate Dehydrogenase Total Creatine Kinase CK-MB (CK-2) Rel Index Troponin T C-Reactive Protein Total Protein Albumin 2.8 L Prealbumin LDL Cholesterol Direct HDL Cholesterol Arterial Blood Glucose Arterial Blood Ionized Calcium Urine WBC (Auto) 03/30/20 03/31/20 03/31/20 17:07 05:02 15:21 WBC RBC Hgb Hct MCV MCH RDW Plt Count Lymph % (Auto) [place] % (Auto) Eos % (Auto) Lymph # (Auto) [place] # (Auto) Eos # (Auto) Seg Neutrophils % Seg Neuts % (Manual) Lymphocytes % (Manual) Monocytes % (Manual) Basophils % (Manual) Seg Neutrophils # Seg Neutrophils # Man Lymphocytes # (Manual) Monocytes # (Manual) Eosinophils # (Manual) Basophils # (Manual) PT INR D-Dimer ABG pH POC ABG pCO2 POC ABG pO2 ABG pO2 ABG HCO3 ABG O2 Saturation ABG Base Excess ABG Hemoglobin ABG Oxyhemoglobin ABG Potassium ABG Glucose Oxyhemoglobin Carboxyhemoglobin Sodium Potassium Chloride Carbon Dioxide BUN Creatinine Glucose POC Glucose 163 H 108 H 110 H Calcium Ferritin Total Bilirubin Alkaline Phosphatase Lactate Dehydrogenase Total Creatine Kinase CK-MB (CK-2) Rel Index Troponin T C-Reactive Protein Total Protein Albumin Prealbumin LDL Cholesterol Direct HDL Cholesterol Arterial Blood Glucose Arterial Blood Ionized Calcium Urine WBC (Auto) 03/31/20 03/31/20 04/01/20 17:58 23:19 05:09 WBC RBC Hgb Hct MCV MCH RDW Plt Count Lymph % (Auto) [place] % (Auto) Eos % (Auto) Lymph # (Auto) [place] # (Auto) Eos # (Auto) Seg Neutrophils % Seg Neuts % (Manual) Lymphocytes % (Manual) Monocytes % (Manual) Basophils % (Manual) Seg Neutrophils # Seg Neutrophils # Man Lymphocytes # (Manual) Monocytes # (Manual) Eosinophils # (Manual) Basophils # (Manual) PT INR D-Dimer ABG pH POC ABG pCO2 POC ABG pO2 ABG pO2 ABG HCO3 ABG O2 Saturation ABG Base Excess ABG Hemoglobin ABG Oxyhemoglobin ABG Potassium ABG Glucose Oxyhemoglobin Carboxyhemoglobin Sodium Potassium Chloride Carbon Dioxide BUN Creatinine Glucose POC Glucose 110 H 131 H 124 H Calcium Ferritin Total Bilirubin Alkaline Phosphatase Lactate Dehydrogenase Total Creatine Kinase CK-MB (CK-2) Rel Index Troponin T C-Reactive Protein Total Protein Albumin Prealbumin LDL Cholesterol Direct HDL Cholesterol Arterial Blood Glucose Arterial Blood Ionized Calcium Urine WBC (Auto) 04/01/20 04/01/20 04/01/20 11:50 17:01 23:21 WBC RBC Hgb Hct MCV MCH RDW Plt Count Lymph % (Auto) [place] % (Auto) Eos % (Auto) Lymph # (Auto) [place] # (Auto) Eos # (Auto) Seg Neutrophils % Seg Neuts % (Manual) Lymphocytes % (Manual) Monocytes % (Manual) Basophils % (Manual) Seg Neutrophils # Seg Neutrophils # Man Lymphocytes # (Manual) Monocytes # (Manual) Eosinophils # (Manual) Basophils # (Manual) PT INR D-Dimer ABG pH POC ABG pCO2 POC ABG pO2 ABG pO2 ABG HCO3 ABG O2 Saturation ABG Base Excess ABG Hemoglobin ABG Oxyhemoglobin ABG Potassium ABG Glucose Oxyhemoglobin Carboxyhemoglobin Sodium Potassium Chloride Carbon Dioxide BUN Creatinine Glucose POC Glucose 136 H 115 H 124 H Calcium Ferritin Total Bilirubin Alkaline Phosphatase Lactate Dehydrogenase Total Creatine Kinase CK-MB (CK-2) Rel Index Troponin T C-Reactive Protein Total Protein Albumin Prealbumin LDL Cholesterol Direct HDL Cholesterol Arterial Blood Glucose Arterial Blood Ionized Calcium Urine WBC (Auto) 04/02/20 04/02/20 04/02/20 05:27 11:58 17:58 WBC RBC Hgb Hct MCV MCH RDW Plt Count Lymph % (Auto) [place] % (Auto) Eos % (Auto) Lymph # (Auto) [place] # (Auto) Eos # (Auto) Seg Neutrophils % Seg Neuts % (Manual) Lymphocytes % (Manual) Monocytes % (Manual) Basophils % (Manual) Seg Neutrophils # Seg Neutrophils # Man Lymphocytes # (Manual) Monocytes # (Manual) Eosinophils # (Manual) Basophils # (Manual) PT INR D-Dimer ABG pH POC ABG pCO2 POC ABG pO2 ABG pO2 ABG HCO3 ABG O2 Saturation ABG Base Excess ABG Hemoglobin ABG Oxyhemoglobin ABG Potassium ABG Glucose Oxyhemoglobin Carboxyhemoglobin Sodium Potassium Chloride Carbon Dioxide BUN Creatinine Glucose POC Glucose 117 H 133 H 122 H Calcium Ferritin Total Bilirubin Alkaline Phosphatase Lactate Dehydrogenase Total Creatine Kinase CK-MB (CK-2) Rel Index Troponin T C-Reactive Protein Total Protein Albumin Prealbumin LDL Cholesterol Direct HDL Cholesterol Arterial Blood Glucose Arterial Blood Ionized Calcium Urine WBC (Auto) 04/02/20 04/03/20 04/03/20 23:12 05:11 11:11 WBC RBC Hgb Hct MCV MCH RDW Plt Count Lymph % (Auto) [place] % (Auto) Eos % (Auto) Lymph # (Auto) [place] # (Auto) Eos # (Auto) Seg Neutrophils % Seg Neuts % (Manual) Lymphocytes % (Manual) Monocytes % (Manual) Basophils % (Manual) Seg Neutrophils # Seg Neutrophils # Man Lymphocytes # (Manual) Monocytes # (Manual) Eosinophils # (Manual) Basophils # (Manual) PT INR D-Dimer ABG pH POC ABG pCO2 POC ABG pO2 ABG pO2 ABG HCO3 ABG O2 Saturation ABG Base Excess ABG Hemoglobin ABG Oxyhemoglobin ABG Potassium ABG Glucose Oxyhemoglobin Carboxyhemoglobin Sodium Potassium Chloride Carbon Dioxide BUN Creatinine Glucose POC Glucose 130 H 139 H 136 H Calcium Ferritin Total Bilirubin Alkaline Phosphatase Lactate Dehydrogenase Total Creatine Kinase CK-MB (CK-2) Rel Index Troponin T C-Reactive Protein Total Protein Albumin Prealbumin LDL Cholesterol Direct HDL Cholesterol Arterial Blood Glucose Arterial Blood Ionized Calcium Urine WBC (Auto) 04/03/20 04/03/20 04/04/20 16:51 23:25 05:29 WBC RBC Hgb Hct MCV MCH RDW Plt Count Lymph % (Auto) [place] % (Auto) Eos % (Auto) Lymph # (Auto) [place] # (Auto) Eos # (Auto) Seg Neutrophils % Seg Neuts % (Manual) Lymphocytes % (Manual) Monocytes % (Manual) Basophils % (Manual) Seg Neutrophils # Seg Neutrophils # Man Lymphocytes # (Manual) Monocytes # (Manual) Eosinophils # (Manual) Basophils # (Manual) PT INR D-Dimer ABG pH POC ABG pCO2 POC ABG pO2 ABG pO2 ABG HCO3 ABG O2 Saturation ABG Base Excess ABG Hemoglobin ABG Oxyhemoglobin ABG Potassium ABG Glucose Oxyhemoglobin Carboxyhemoglobin Sodium Potassium Chloride Carbon Dioxide BUN Creatinine Glucose POC Glucose 118 H 111 H 126 H Calcium Ferritin Total Bilirubin Alkaline Phosphatase Lactate Dehydrogenase Total Creatine Kinase CK-MB (CK-2) Rel Index Troponin T C-Reactive Protein Total Protein Albumin Prealbumin LDL Cholesterol Direct HDL Cholesterol Arterial Blood Glucose Arterial Blood Ionized Calcium Urine WBC (Auto) 04/04/20 04/04/20 04/04/20 11:47 17:41 23:05 WBC RBC Hgb Hct MCV MCH RDW Plt Count Lymph % (Auto) [place] % (Auto) Eos % (Auto) Lymph # (Auto) [place] # (Auto) Eos # (Auto) Seg Neutrophils % Seg Neuts % (Manual) Lymphocytes % (Manual) Monocytes % (Manual) Basophils % (Manual) Seg Neutrophils # Seg Neutrophils # Man Lymphocytes # (Manual) Monocytes # (Manual) Eosinophils # (Manual) Basophils # (Manual) PT INR D-Dimer ABG pH POC ABG pCO2 POC ABG pO2 ABG pO2 ABG HCO3 ABG O2 Saturation ABG Base Excess ABG Hemoglobin ABG Oxyhemoglobin ABG Potassium ABG Glucose Oxyhemoglobin Carboxyhemoglobin Sodium Potassium Chloride Carbon Dioxide BUN Creatinine Glucose POC Glucose 123 H 120 H 119 H Calcium Ferritin Total Bilirubin Alkaline Phosphatase Lactate Dehydrogenase Total Creatine Kinase CK-MB (CK-2) Rel Index Troponin T C-Reactive Protein Total Protein Albumin Prealbumin LDL Cholesterol Direct HDL Cholesterol Arterial Blood Glucose Arterial Blood Ionized Calcium Urine WBC (Auto) 04/05/20 04/05/20 04/05/20 05:14 12:16 18:48 WBC RBC Hgb Hct MCV MCH RDW Plt Count Lymph % (Auto) [place] % (Auto) Eos % (Auto) Lymph # (Auto) [place] # (Auto) Eos # (Auto) Seg Neutrophils % Seg Neuts % (Manual) Lymphocytes % (Manual) Monocytes % (Manual) Basophils % (Manual) Seg Neutrophils # Seg Neutrophils # Man Lymphocytes # (Manual) Monocytes # (Manual) Eosinophils # (Manual) Basophils # (Manual) PT INR D-Dimer ABG pH POC ABG pCO2 POC ABG pO2 ABG pO2 ABG HCO3 ABG O2 Saturation ABG Base Excess ABG Hemoglobin ABG Oxyhemoglobin ABG Potassium ABG Glucose Oxyhemoglobin Carboxyhemoglobin Sodium Potassium Chloride Carbon Dioxide BUN Creatinine Glucose POC Glucose 123 H 148 H 106 H Calcium Ferritin Total Bilirubin Alkaline Phosphatase Lactate Dehydrogenase Total Creatine Kinase CK-MB (CK-2) Rel Index Troponin T C-Reactive Protein Total Protein Albumin Prealbumin LDL Cholesterol Direct HDL Cholesterol Arterial Blood Glucose Arterial Blood Ionized Calcium Urine WBC (Auto) 04/06/20 04/06/20 04/06/20 00:47 03:26 08:24 WBC RBC Hgb Hct MCV MCH RDW Plt Count Lymph % (Auto) [place] % (Auto) Eos % (Auto) Lymph # (Auto) [place] # (Auto) Eos # (Auto) Seg Neutrophils % Seg Neuts % (Manual) Lymphocytes % (Manual) Monocytes % (Manual) Basophils % (Manual) Seg Neutrophils # Seg Neutrophils # Man Lymphocytes # (Manual) Monocytes # (Manual) Eosinophils # (Manual) Basophils # (Manual) PT INR D-Dimer ABG pH POC ABG pCO2 POC ABG pO2 ABG pO2 ABG HCO3 ABG O2 Saturation ABG Base Excess ABG Hemoglobin ABG Oxyhemoglobin ABG Potassium ABG Glucose Oxyhemoglobin Carboxyhemoglobin Sodium Potassium Chloride Carbon Dioxide BUN Creatinine Glucose POC Glucose 129 H 134 H 131 H Calcium Ferritin Total Bilirubin Alkaline Phosphatase Lactate Dehydrogenase Total Creatine Kinase CK-MB (CK-2) Rel Index Troponin T C-Reactive Protein Total Protein Albumin Prealbumin LDL Cholesterol Direct HDL Cholesterol Arterial Blood Glucose Arterial Blood Ionized Calcium Urine WBC (Auto) 04/06/20 04/06/20 04/06/20 11:16 16:27 23:01 WBC RBC Hgb Hct MCV MCH RDW Plt Count Lymph % (Auto) [place] % (Auto) Eos % (Auto) Lymph # (Auto) [place] # (Auto) Eos # (Auto) Seg Neutrophils % Seg Neuts % (Manual) Lymphocytes % (Manual) Monocytes % (Manual) Basophils % (Manual) Seg Neutrophils # Seg Neutrophils # Man Lymphocytes # (Manual) Monocytes # (Manual) Eosinophils # (Manual) Basophils # (Manual) PT INR D-Dimer ABG pH POC ABG pCO2 POC ABG pO2 ABG pO2 ABG HCO3 ABG O2 Saturation ABG Base Excess ABG Hemoglobin ABG Oxyhemoglobin ABG Potassium ABG Glucose Oxyhemoglobin Carboxyhemoglobin Sodium Potassium Chloride Carbon Dioxide BUN Creatinine Glucose POC Glucose 131 H 107 H 125 H Calcium Ferritin Total Bilirubin Alkaline Phosphatase Lactate Dehydrogenase Total Creatine Kinase CK-MB (CK-2) Rel Index Troponin T C-Reactive Protein Total Protein Albumin Prealbumin LDL Cholesterol Direct HDL Cholesterol Arterial Blood Glucose Arterial Blood Ionized Calcium Urine WBC (Auto) 04/07/20 04/07/20 04/07/20 05:24 12:41 17:40 WBC RBC Hgb Hct MCV MCH RDW Plt Count Lymph % (Auto) [place] % (Auto) Eos % (Auto) Lymph # (Auto) [place] # (Auto) Eos # (Auto) Seg Neutrophils % Seg Neuts % (Manual) Lymphocytes % (Manual) Monocytes % (Manual) Basophils % (Manual) Seg Neutrophils # Seg Neutrophils # Man Lymphocytes # (Manual) Monocytes # (Manual) Eosinophils # (Manual) Basophils # (Manual) PT INR D-Dimer ABG pH POC ABG pCO2 POC ABG pO2 ABG pO2 ABG HCO3 ABG O2 Saturation ABG Base Excess ABG Hemoglobin ABG Oxyhemoglobin ABG Potassium ABG Glucose Oxyhemoglobin Carboxyhemoglobin Sodium Potassium Chloride Carbon Dioxide BUN Creatinine Glucose POC Glucose 125 H 145 H 123 H Calcium Ferritin Total Bilirubin Alkaline Phosphatase Lactate Dehydrogenase Total Creatine Kinase CK-MB (CK-2) Rel Index Troponin T C-Reactive Protein Total Protein Albumin Prealbumin LDL Cholesterol Direct HDL Cholesterol Arterial Blood Glucose Arterial Blood Ionized Calcium Urine WBC (Auto) 04/07/20 04/08/20 04/08/20 23:22 05:40 11:29 WBC RBC Hgb Hct MCV MCH RDW Plt Count Lymph % (Auto) [place] % (Auto) Eos % (Auto) Lymph # (Auto) [place] # (Auto) Eos # (Auto) Seg Neutrophils % Seg Neuts % (Manual) Lymphocytes % (Manual) Monocytes % (Manual) Basophils % (Manual) Seg Neutrophils # Seg Neutrophils # Man Lymphocytes # (Manual) Monocytes # (Manual) Eosinophils # (Manual) Basophils # (Manual) PT INR D-Dimer ABG pH POC ABG pCO2 POC ABG pO2 ABG pO2 ABG HCO3 ABG O2 Saturation ABG Base Excess ABG Hemoglobin ABG Oxyhemoglobin ABG Potassium ABG Glucose Oxyhemoglobin Carboxyhemoglobin Sodium Potassium Chloride Carbon Dioxide BUN Creatinine Glucose POC Glucose 133 H 125 H 116 H Calcium Ferritin Total Bilirubin Alkaline Phosphatase Lactate Dehydrogenase Total Creatine Kinase CK-MB (CK-2) Rel Index Troponin T C-Reactive Protein Total Protein Albumin Prealbumin LDL Cholesterol Direct HDL Cholesterol Arterial Blood Glucose Arterial Blood Ionized Calcium Urine WBC (Auto) 04/08/20 04/09/20 04/09/20 17:43 05:47 12:22 WBC RBC Hgb Hct MCV MCH RDW Plt Count Lymph % (Auto) [place] % (Auto) Eos % (Auto) Lymph # (Auto) [place] # (Auto) Eos # (Auto) Seg Neutrophils % Seg Neuts % (Manual) Lymphocytes % (Manual) Monocytes % (Manual) Basophils % (Manual) Seg Neutrophils # Seg Neutrophils # Man Lymphocytes # (Manual) Monocytes # (Manual) Eosinophils # (Manual) Basophils # (Manual) PT INR D-Dimer ABG pH POC ABG pCO2 POC ABG pO2 ABG pO2 ABG HCO3 ABG O2 Saturation ABG Base Excess ABG Hemoglobin ABG Oxyhemoglobin ABG Potassium ABG Glucose Oxyhemoglobin Carboxyhemoglobin Sodium Potassium Chloride Carbon Dioxide BUN Creatinine Glucose POC Glucose 123 H 108 H 116 H Calcium Ferritin Total Bilirubin Alkaline Phosphatase Lactate Dehydrogenase Total Creatine Kinase CK-MB (CK-2) Rel Index Troponin T C-Reactive Protein Total Protein Albumin Prealbumin LDL Cholesterol Direct HDL Cholesterol Arterial Blood Glucose Arterial Blood Ionized Calcium Urine WBC (Auto) 04/09/20 04/09/20 04/10/20 17:24 23:52 06:10 WBC RBC Hgb Hct MCV MCH RDW Plt Count Lymph % (Auto) [place] % (Auto) Eos % (Auto) Lymph # (Auto) [place] # (Auto) Eos # (Auto) Seg Neutrophils % Seg Neuts % (Manual) Lymphocytes % (Manual) Monocytes % (Manual) Basophils % (Manual) Seg Neutrophils # Seg Neutrophils # Man Lymphocytes # (Manual) Monocytes # (Manual) Eosinophils # (Manual) Basophils # (Manual) PT INR D-Dimer ABG pH POC ABG pCO2 POC ABG pO2 ABG pO2 ABG HCO3 ABG O2 Saturation ABG Base Excess ABG Hemoglobin ABG Oxyhemoglobin ABG Potassium ABG Glucose Oxyhemoglobin Carboxyhemoglobin Sodium Potassium Chloride Carbon Dioxide BUN Creatinine Glucose POC Glucose 108 H 126 H 122 H Calcium Ferritin Total Bilirubin Alkaline Phosphatase Lactate Dehydrogenase Total Creatine Kinase CK-MB (CK-2) Rel Index Troponin T C-Reactive Protein Total Protein Albumin Prealbumin LDL Cholesterol Direct HDL Cholesterol Arterial Blood Glucose Arterial Blood Ionized Calcium Urine WBC (Auto) 04/10/20 04/10/20 04/10/20 11:27 18:11 23:24 WBC RBC Hgb Hct MCV MCH RDW Plt Count Lymph % (Auto) [place] % (Auto) Eos % (Auto) Lymph # (Auto) [place] # (Auto) Eos # (Auto) Seg Neutrophils % Seg Neuts % (Manual) Lymphocytes % (Manual) Monocytes % (Manual) Basophils % (Manual) Seg Neutrophils # Seg Neutrophils # Man Lymphocytes # (Manual) Monocytes # (Manual) Eosinophils # (Manual) Basophils # (Manual) PT INR D-Dimer ABG pH POC ABG pCO2 POC ABG pO2 ABG pO2 ABG HCO3 ABG O2 Saturation ABG Base Excess ABG Hemoglobin ABG Oxyhemoglobin ABG Potassium ABG Glucose Oxyhemoglobin Carboxyhemoglobin Sodium Potassium Chloride Carbon Dioxide BUN Creatinine Glucose POC Glucose 129 H 125 H 107 H Calcium Ferritin Total Bilirubin Alkaline Phosphatase Lactate Dehydrogenase Total Creatine Kinase CK-MB (CK-2) Rel Index Troponin T C-Reactive Protein Total Protein Albumin Prealbumin LDL Cholesterol Direct HDL Cholesterol Arterial Blood Glucose Arterial Blood Ionized Calcium Urine WBC (Auto) 04/11/20 04/11/20 04/11/20 05:28 11:46 23:49 WBC RBC Hgb Hct MCV MCH RDW Plt Count Lymph % (Auto) [place] % (Auto) Eos % (Auto) Lymph # (Auto) [place] # (Auto) Eos # (Auto) Seg Neutrophils % Seg Neuts % (Manual) Lymphocytes % (Manual) Monocytes % (Manual) Basophils % (Manual) Seg Neutrophils # Seg Neutrophils # Man Lymphocytes # (Manual) Monocytes # (Manual) Eosinophils # (Manual) Basophils # (Manual) PT INR D-Dimer ABG pH POC ABG pCO2 POC ABG pO2 ABG pO2 ABG HCO3 ABG O2 Saturation ABG Base Excess ABG Hemoglobin ABG Oxyhemoglobin ABG Potassium ABG Glucose Oxyhemoglobin Carboxyhemoglobin Sodium Potassium Chloride Carbon Dioxide BUN Creatinine Glucose POC Glucose 122 H 122 H 116 H Calcium Ferritin Total Bilirubin Alkaline Phosphatase Lactate Dehydrogenase Total Creatine Kinase CK-MB (CK-2) Rel Index Troponin T C-Reactive Protein Total Protein Albumin Prealbumin LDL Cholesterol Direct HDL Cholesterol Arterial Blood Glucose Arterial Blood Ionized Calcium Urine WBC (Auto) 04/12/20 04/12/20 04/12/20 09:07 09:07 11:39 WBC 13.1 H RBC 3.59 L Hgb 9.5 L Hct 29.8 L MCV 83 L MCH 26 L RDW 16.6 H Plt Count 591 H Lymph % (Auto) [place] % (Auto) Eos % (Auto) Lymph # (Auto) [place] # (Auto) Eos # (Auto) Seg Neutrophils % Seg Neuts % (Manual) 86.0 H Lymphocytes % (Manual) 7.0 L Monocytes % (Manual) Basophils % (Manual) Seg Neutrophils # Seg Neutrophils # Man 11.3 H Lymphocytes # (Manual) 0.9 L Monocytes # (Manual) Eosinophils # (Manual) Basophils # (Manual) PT INR D-Dimer ABG pH POC ABG pCO2 POC ABG pO2 ABG pO2 ABG HCO3 ABG O2 Saturation ABG Base Excess ABG Hemoglobin ABG Oxyhemoglobin ABG Potassium ABG Glucose Oxyhemoglobin Carboxyhemoglobin Sodium Potassium Chloride Carbon Dioxide 36 H BUN Creatinine < 0.2 L Glucose 132 H POC Glucose 136 H Calcium Ferritin Total Bilirubin Alkaline Phosphatase Lactate Dehydrogenase Total Creatine Kinase CK-MB (CK-2) Rel Index Troponin T C-Reactive Protein Total Protein Albumin 2.7 L Prealbumin LDL Cholesterol Direct HDL Cholesterol Arterial Blood Glucose Arterial Blood Ionized Calcium Urine WBC (Auto) 04/12/20 04/12/20 04/13/20 18:13 23:07 05:45 WBC RBC Hgb Hct MCV MCH RDW Plt Count Lymph % (Auto) [place] % (Auto) Eos % (Auto) Lymph # (Auto) [place] # (Auto) Eos # (Auto) Seg Neutrophils % Seg Neuts % (Manual) Lymphocytes % (Manual) Monocytes % (Manual) Basophils % (Manual) Seg Neutrophils # Seg Neutrophils # Man Lymphocytes # (Manual) Monocytes # (Manual) Eosinophils # (Manual) Basophils # (Manual) PT INR D-Dimer ABG pH POC ABG pCO2 POC ABG pO2 ABG pO2 ABG HCO3 ABG O2 Saturation ABG Base Excess ABG Hemoglobin ABG Oxyhemoglobin ABG Potassium ABG Glucose Oxyhemoglobin Carboxyhemoglobin Sodium Potassium Chloride Carbon Dioxide BUN Creatinine Glucose POC Glucose 107 H 106 H 125 H Calcium Ferritin Total Bilirubin Alkaline Phosphatase Lactate Dehydrogenase Total Creatine Kinase CK-MB (CK-2) Rel Index Troponin T C-Reactive Protein Total Protein Albumin Prealbumin LDL Cholesterol Direct HDL Cholesterol Arterial Blood Glucose Arterial Blood Ionized Calcium Urine WBC (Auto) 04/13/20 04/13/20 04/13/20 11:18 17:56 23:33 WBC RBC Hgb Hct MCV MCH RDW Plt Count Lymph % (Auto) [place] % (Auto) Eos % (Auto) Lymph # (Auto) [place] # (Auto) Eos # (Auto) Seg Neutrophils % Seg Neuts % (Manual) Lymphocytes % (Manual) Monocytes % (Manual) Basophils % (Manual) Seg Neutrophils # Seg Neutrophils # Man Lymphocytes # (Manual) Monocytes # (Manual) Eosinophils # (Manual) Basophils # (Manual) PT INR D-Dimer ABG pH POC ABG pCO2 POC ABG pO2 ABG pO2 ABG HCO3 ABG O2 Saturation ABG Base Excess ABG Hemoglobin ABG Oxyhemoglobin ABG Potassium ABG Glucose Oxyhemoglobin Carboxyhemoglobin Sodium Potassium Chloride Carbon Dioxide BUN Creatinine Glucose POC Glucose 133 H 110 H 114 H Calcium Ferritin Total Bilirubin Alkaline Phosphatase Lactate Dehydrogenase Total Creatine Kinase CK-MB (CK-2) Rel Index Troponin T C-Reactive Protein Total Protein Albumin Prealbumin LDL Cholesterol Direct HDL Cholesterol Arterial Blood Glucose Arterial Blood Ionized Calcium Urine WBC (Auto) 04/14/20 04/14/20 04/14/20 05:58 11:45 17:48 WBC RBC Hgb Hct MCV MCH RDW Plt Count Lymph % (Auto) [place] % (Auto) Eos % (Auto) Lymph # (Auto) [place] # (Auto) Eos # (Auto) Seg Neutrophils % Seg Neuts % (Manual) Lymphocytes % (Manual) Monocytes % (Manual) Basophils % (Manual) Seg Neutrophils # Seg Neutrophils # Man Lymphocytes # (Manual) Monocytes # (Manual) Eosinophils # (Manual) Basophils # (Manual) PT INR D-Dimer ABG pH POC ABG pCO2 POC ABG pO2 ABG pO2 ABG HCO3 ABG O2 Saturation ABG Base Excess ABG Hemoglobin ABG Oxyhemoglobin ABG Potassium ABG Glucose Oxyhemoglobin Carboxyhemoglobin Sodium Potassium Chloride Carbon Dioxide BUN Creatinine Glucose POC Glucose 115 H 122 H 124 H Calcium Ferritin Total Bilirubin Alkaline Phosphatase Lactate Dehydrogenase Total Creatine Kinase CK-MB (CK-2) Rel Index Troponin T C-Reactive Protein Total Protein Albumin Prealbumin LDL Cholesterol Direct HDL Cholesterol Arterial Blood Glucose Arterial Blood Ionized Calcium Urine WBC (Auto) 04/15/20 04/15/20 04/15/20 00:11 05:38 11:31 WBC RBC Hgb Hct MCV MCH RDW Plt Count Lymph % (Auto) [place] % (Auto) Eos % (Auto) Lymph # (Auto) [place] # (Auto) Eos # (Auto) Seg Neutrophils % Seg Neuts % (Manual) Lymphocytes % (Manual) Monocytes % (Manual) Basophils % (Manual) Seg Neutrophils # Seg Neutrophils # Man Lymphocytes # (Manual) Monocytes # (Manual) Eosinophils # (Manual) Basophils # (Manual) PT INR D-Dimer ABG pH POC ABG pCO2 POC ABG pO2 ABG pO2 ABG HCO3 ABG O2 Saturation ABG Base Excess ABG Hemoglobin ABG Oxyhemoglobin ABG Potassium ABG Glucose Oxyhemoglobin Carboxyhemoglobin Sodium Potassium Chloride Carbon Dioxide BUN Creatinine Glucose POC Glucose 120 H 109 H 123 H Calcium Ferritin Total Bilirubin Alkaline Phosphatase Lactate Dehydrogenase Total Creatine Kinase CK-MB (CK-2) Rel Index Troponin T C-Reactive Protein Total Protein Albumin Prealbumin LDL Cholesterol Direct HDL Cholesterol Arterial Blood Glucose Arterial Blood Ionized Calcium Urine WBC (Auto) 04/15/20 04/16/20 04/16/20 17:35 06:00 11:29 WBC RBC Hgb Hct MCV MCH RDW Plt Count Lymph % (Auto) [place] % (Auto) Eos % (Auto) Lymph # (Auto) [place] # (Auto) Eos # (Auto) Seg Neutrophils % Seg Neuts % (Manual) Lymphocytes % (Manual) Monocytes % (Manual) Basophils % (Manual) Seg Neutrophils # Seg Neutrophils # Man Lymphocytes # (Manual) Monocytes # (Manual) Eosinophils # (Manual) Basophils # (Manual) PT INR D-Dimer ABG pH POC ABG pCO2 POC ABG pO2 ABG pO2 ABG HCO3 ABG O2 Saturation ABG Base Excess ABG Hemoglobin ABG Oxyhemoglobin ABG Potassium ABG Glucose Oxyhemoglobin Carboxyhemoglobin Sodium Potassium Chloride Carbon Dioxide BUN Creatinine Glucose POC Glucose 111 H 142 H 108 H Calcium Ferritin Total Bilirubin Alkaline Phosphatase Lactate Dehydrogenase Total Creatine Kinase CK-MB (CK-2) Rel Index Troponin T C-Reactive Protein Total Protein Albumin Prealbumin LDL Cholesterol Direct HDL Cholesterol Arterial Blood Glucose Arterial Blood Ionized Calcium Urine WBC (Auto) 04/17/20 04/17/20 04/17/20 05:09 06:53 06:53 WBC 14.2 H RBC Hgb 10.1 L Hct 31.5 L MCV MCH 27 L RDW 17.2 H Plt Count 643 H Lymph % (Auto) [place] % (Auto) Eos % (Auto) Lymph # (Auto) [place] # (Auto) Eos # (Auto) Seg Neutrophils % Seg Neuts % (Manual) Lymphocytes % (Manual) Monocytes % (Manual) Basophils % (Manual) Seg Neutrophils # Seg Neutrophils # Man Lymphocytes # (Manual) Monocytes # (Manual) Eosinophils # (Manual) Basophils # (Manual) PT INR D-Dimer ABG pH POC ABG pCO2 POC ABG pO2 ABG pO2 ABG HCO3 ABG O2 Saturation ABG Base Excess ABG Hemoglobin ABG Oxyhemoglobin ABG Potassium ABG Glucose Oxyhemoglobin Carboxyhemoglobin Sodium Potassium Chloride 97.7 L Carbon Dioxide 38 H BUN Creatinine < 0.2 L Glucose 126 H POC Glucose 131 H Calcium Ferritin Total Bilirubin Alkaline Phosphatase Lactate Dehydrogenase Total Creatine Kinase CK-MB (CK-2) Rel Index Troponin T C-Reactive Protein Total Protein Albumin Prealbumin LDL Cholesterol Direct HDL Cholesterol Arterial Blood Glucose Arterial Blood Ionized Calcium Urine WBC (Auto) 04/17/20 04/18/20 04/18/20 11:21 00:23 04:01 WBC 15.3 H RBC Hgb 10.1 L Hct 31.9 L MCV 82 L MCH 26 L RDW 17.2 H Plt Count 665 H Lymph % (Auto) 12.9 L [place] % (Auto) Eos % (Auto) Lymph # (Auto) [place] # (Auto) 1.1 H Eos # (Auto) Seg Neutrophils % 78.0 H Seg Neuts % (Manual) Lymphocytes % (Manual) Monocytes % (Manual) Basophils % (Manual) Seg Neutrophils # 11.9 H Seg Neutrophils # Man Lymphocytes # (Manual) Monocytes # (Manual) Eosinophils # (Manual) Basophils # (Manual) PT INR D-Dimer ABG pH POC ABG pCO2 POC ABG pO2 ABG pO2 ABG HCO3 ABG O2 Saturation ABG Base Excess ABG Hemoglobin ABG Oxyhemoglobin ABG Potassium ABG Glucose Oxyhemoglobin Carboxyhemoglobin Sodium Potassium Chloride Carbon Dioxide BUN Creatinine Glucose POC Glucose 140 H 125 H Calcium Ferritin Total Bilirubin Alkaline Phosphatase Lactate Dehydrogenase Total Creatine Kinase CK-MB (CK-2) Rel Index Troponin T C-Reactive Protein Total Protein Albumin Prealbumin LDL Cholesterol Direct HDL Cholesterol Arterial Blood Glucose Arterial Blood Ionized Calcium Urine WBC (Auto) 04/18/20 04/18/20 04/18/20 04:01 11:29 17:30 WBC RBC Hgb Hct MCV MCH RDW Plt Count Lymph % (Auto) [place] % (Auto) Eos % (Auto) Lymph # (Auto) [place] # (Auto) Eos # (Auto) Seg Neutrophils % Seg Neuts % (Manual) Lymphocytes % (Manual) Monocytes % (Manual) Basophils % (Manual) Seg Neutrophils # Seg Neutrophils # Man Lymphocytes # (Manual) Monocytes # (Manual) Eosinophils # (Manual) Basophils # (Manual) PT INR D-Dimer ABG pH POC ABG pCO2 POC ABG pO2 ABG pO2 ABG HCO3 ABG O2 Saturation ABG Base Excess ABG Hemoglobin ABG Oxyhemoglobin ABG Potassium ABG Glucose Oxyhemoglobin Carboxyhemoglobin Sodium Potassium Chloride 97.0 L Carbon Dioxide 38 H BUN Creatinine < 0.2 L Glucose 117 H POC Glucose 136 H 107 H Calcium Ferritin Total Bilirubin Alkaline Phosphatase Lactate Dehydrogenase Total Creatine Kinase CK-MB (CK-2) Rel Index Troponin T C-Reactive Protein Total Protein Albumin Prealbumin LDL Cholesterol Direct HDL Cholesterol Arterial Blood Glucose Arterial Blood Ionized Calcium Urine WBC (Auto) 04/18/20 04/19/20 04/19/20 23:19 06:51 06:51 WBC 12.2 H RBC Hgb 9.8 L Hct 31.1 L MCV 82 L MCH 26 L RDW 17.2 H Plt Count 549 H Lymph % (Auto) 6.5 L [place] % (Auto) Eos % (Auto) Lymph # (Auto) 0.8 L [place] # (Auto) Eos # (Auto) Seg Neutrophils % 86.7 H Seg Neuts % (Manual) Lymphocytes % (Manual) Monocytes % (Manual) Basophils % (Manual) Seg Neutrophils # 10.6 H Seg Neutrophils # Man Lymphocytes # (Manual) Monocytes # (Manual) Eosinophils # (Manual) Basophils # (Manual) PT INR D-Dimer ABG pH POC ABG pCO2 POC ABG pO2 ABG pO2 ABG HCO3 ABG O2 Saturation ABG Base Excess ABG Hemoglobin ABG Oxyhemoglobin ABG Potassium ABG Glucose Oxyhemoglobin Carboxyhemoglobin Sodium Potassium Chloride 97.8 L Carbon Dioxide 38 H BUN Creatinine < 0.2 L Glucose 123 H POC Glucose 127 H Calcium Ferritin Total Bilirubin Alkaline Phosphatase Lactate Dehydrogenase Total Creatine Kinase CK-MB (CK-2) Rel Index Troponin T C-Reactive Protein Total Protein Albumin Prealbumin LDL Cholesterol Direct HDL Cholesterol Arterial Blood Glucose Arterial Blood Ionized Calcium Urine WBC (Auto) 04/19/20 04/19/20 04/20/20 13:41 18:33 05:56 WBC RBC Hgb Hct MCV MCH RDW Plt Count Lymph % (Auto) [place] % (Auto) Eos % (Auto) Lymph # (Auto) [place] # (Auto) Eos # (Auto) Seg Neutrophils % Seg Neuts % (Manual) Lymphocytes % (Manual) Monocytes % (Manual) Basophils % (Manual) Seg Neutrophils # Seg Neutrophils # Man Lymphocytes # (Manual) Monocytes # (Manual) Eosinophils # (Manual) Basophils # (Manual) PT INR D-Dimer ABG pH POC ABG pCO2 POC ABG pO2 ABG pO2 ABG HCO3 ABG O2 Saturation ABG Base Excess ABG Hemoglobin ABG Oxyhemoglobin ABG Potassium ABG Glucose Oxyhemoglobin Carboxyhemoglobin Sodium Potassium Chloride Carbon Dioxide BUN Creatinine Glucose POC Glucose 116 H 124 H 130 H Calcium Ferritin Total Bilirubin Alkaline Phosphatase Lactate Dehydrogenase Total Creatine Kinase CK-MB (CK-2) Rel Index Troponin T C-Reactive Protein Total Protein Albumin Prealbumin LDL Cholesterol Direct HDL Cholesterol Arterial Blood Glucose Arterial Blood Ionized Calcium Urine WBC (Auto) 04/20/20 04/20/20 04/20/20 06:28 06:28 11:46 WBC RBC Hgb 10.2 L Hct 31.5 L MCV 82 L MCH 27 L RDW 17.1 H Plt Count 546 H Lymph % (Auto) 10.0 L [place] % (Auto) 9.8 H Eos % (Auto) Lymph # (Auto) 1.1 L [place] # (Auto) 1.1 H Eos # (Auto) Seg Neutrophils % 78.4 H Seg Neuts % (Manual) Lymphocytes % (Manual) Monocytes % (Manual) Basophils % (Manual) Seg Neutrophils # 8.5 H Seg Neutrophils # Man Lymphocytes # (Manual) Monocytes # (Manual) Eosinophils # (Manual) Basophils # (Manual) PT INR D-Dimer ABG pH POC ABG pCO2 POC ABG pO2 ABG pO2 ABG HCO3 ABG O2 Saturation ABG Base Excess ABG Hemoglobin ABG Oxyhemoglobin ABG Potassium ABG Glucose Oxyhemoglobin Carboxyhemoglobin Sodium Potassium Chloride 97.0 L Carbon Dioxide 38 H BUN Creatinine < 0.2 L Glucose 138 H POC Glucose 130 H Calcium Ferritin Total Bilirubin Alkaline Phosphatase Lactate Dehydrogenase Total Creatine Kinase CK-MB (CK-2) Rel Index Troponin T C-Reactive Protein Total Protein Albumin Prealbumin LDL Cholesterol Direct HDL Cholesterol Arterial Blood Glucose Arterial Blood Ionized Calcium Urine WBC (Auto) 04/20/20 04/21/20 04/21/20 23:31 05:55 05:55 WBC RBC Hgb 10.0 L Hct 31.1 L MCV 82 L MCH 26 L RDW 17.0 H Plt Count 535 H Lymph % (Auto) [place] % (Auto) 9.2 H Eos % (Auto) Lymph # (Auto) 1.1 L [place] # (Auto) Eos # (Auto) Seg Neutrophils % 75.4 H Seg Neuts % (Manual) Lymphocytes % (Manual) Monocytes % (Manual) Basophils % (Manual) Seg Neutrophils # Seg Neutrophils # Man Lymphocytes # (Manual) Monocytes # (Manual) Eosinophils # (Manual) Basophils # (Manual) PT INR D-Dimer ABG pH POC ABG pCO2 POC ABG pO2 ABG pO2 ABG HCO3 ABG O2 Saturation ABG Base Excess ABG Hemoglobin ABG Oxyhemoglobin ABG Potassium ABG Glucose Oxyhemoglobin Carboxyhemoglobin Sodium Potassium Chloride 95.0 L Carbon Dioxide 34 H BUN Creatinine < 0.2 L Glucose 125 H POC Glucose 116 H Calcium Ferritin Total Bilirubin Alkaline Phosphatase Lactate Dehydrogenase Total Creatine Kinase CK-MB (CK-2) Rel Index Troponin T C-Reactive Protein Total Protein Albumin Prealbumin LDL Cholesterol Direct HDL Cholesterol Arterial Blood Glucose Arterial Blood Ionized Calcium Urine WBC (Auto) 04/22/20 04/22/20 04/22/20 00:01 07:45 07:45 WBC RBC Hgb 10.0 L Hct 30.7 L MCV 81 L MCH 27 L RDW 17.1 H Plt Count 490 H Lymph % (Auto) [place] % (Auto) Eos % (Auto) Lymph # (Auto) [place] # (Auto) Eos # (Auto) Seg Neutrophils % Seg Neuts % (Manual) 75.0 H Lymphocytes % (Manual) 11.0 L Monocytes % (Manual) 9.0 H Basophils % (Manual) Seg Neutrophils # Seg Neutrophils # Man Lymphocytes # (Manual) 0.8 L Monocytes # (Manual) Eosinophils # (Manual) Basophils # (Manual) PT INR D-Dimer ABG pH POC ABG pCO2 POC ABG pO2 ABG pO2 ABG HCO3 ABG O2 Saturation ABG Base Excess ABG Hemoglobin ABG Oxyhemoglobin ABG Potassium ABG Glucose Oxyhemoglobin Carboxyhemoglobin Sodium Potassium Chloride 96.3 L Carbon Dioxide 40 H BUN Creatinine < 0.2 L Glucose 109 H POC Glucose 110 H Calcium Ferritin Total Bilirubin Alkaline Phosphatase Lactate Dehydrogenase Total Creatine Kinase CK-MB (CK-2) Rel Index Troponin T C-Reactive Protein Total Protein Albumin Prealbumin LDL Cholesterol Direct HDL Cholesterol Arterial Blood Glucose Arterial Blood Ionized Calcium Urine WBC (Auto) 04/23/20 04/23/20 04/23/20 04:28 04:28 04:28 WBC RBC 3.64 L Hgb 9.7 L Hct 29.4 L MCV 81 L MCH 27 L RDW 17.2 H Plt Count 527 H Lymph % (Auto) [place] % (Auto) 8.9 H Eos % (Auto) Lymph # (Auto) [place] # (Auto) Eos # (Auto) Seg Neutrophils % Seg Neuts % (Manual) Lymphocytes % (Manual) Monocytes % (Manual) Basophils % (Manual) Seg Neutrophils # Seg Neutrophils # Man Lymphocytes # (Manual) Monocytes # (Manual) Eosinophils # (Manual) Basophils # (Manual) PT INR D-Dimer ABG pH POC ABG pCO2 POC ABG pO2 ABG pO2 ABG HCO3 ABG O2 Saturation ABG Base Excess ABG Hemoglobin ABG Oxyhemoglobin ABG Potassium ABG Glucose Oxyhemoglobin Carboxyhemoglobin Sodium Potassium Chloride 96.4 L Carbon Dioxide 32 H D BUN Creatinine < 0.2 L Glucose 134 H POC Glucose Calcium Ferritin Total Bilirubin Alkaline Phosphatase Lactate Dehydrogenase Total Creatine Kinase CK-MB (CK-2) Rel Index Troponin T 0.151 H* C-Reactive Protein Total Protein Albumin Prealbumin LDL Cholesterol Direct HDL Cholesterol 29 L Arterial Blood Glucose Arterial Blood Ionized Calcium Urine WBC (Auto) 04/23/20 04/23/20 04/24/20 06:03 23:41 05:28 WBC RBC 3.56 L Hgb 9.5 L Hct 28.9 L MCV 81 L MCH 27 L RDW 17.4 H Plt Count 462 H Lymph % (Auto) [place] % (Auto) Eos % (Auto) Lymph # (Auto) [place] # (Auto) Eos # (Auto) Seg Neutrophils % Seg Neuts % (Manual) 80.0 H Lymphocytes % (Manual) Monocytes % (Manual) Basophils % (Manual) Seg Neutrophils # Seg Neutrophils # Man Lymphocytes # (Manual) Monocytes # (Manual) Eosinophils # (Manual) Basophils # (Manual) PT INR D-Dimer ABG pH POC ABG pCO2 POC ABG pO2 ABG pO2 ABG HCO3 ABG O2 Saturation ABG Base Excess ABG Hemoglobin ABG Oxyhemoglobin ABG Potassium ABG Glucose Oxyhemoglobin Carboxyhemoglobin Sodium Potassium Chloride Carbon Dioxide BUN Creatinine Glucose POC Glucose 132 H 117 H Calcium Ferritin Total Bilirubin Alkaline Phosphatase Lactate Dehydrogenase Total Creatine Kinase CK-MB (CK-2) Rel Index Troponin T C-Reactive Protein Total Protein Albumin Prealbumin LDL Cholesterol Direct HDL Cholesterol Arterial Blood Glucose Arterial Blood Ionized Calcium Urine WBC (Auto) 04/24/20 04/24/20 04/24/20 05:28 05:28 05:33 WBC RBC Hgb Hct MCV MCH RDW Plt Count Lymph % (Auto) [place] % (Auto) Eos % (Auto) Lymph # (Auto) [place] # (Auto) Eos # (Auto) Seg Neutrophils % Seg Neuts % (Manual) Lymphocytes % (Manual) Monocytes % (Manual) Basophils % (Manual) Seg Neutrophils # Seg Neutrophils # Man Lymphocytes # (Manual) Monocytes # (Manual) Eosinophils # (Manual) Basophils # (Manual) PT INR D-Dimer ABG pH POC ABG pCO2 POC ABG pO2 ABG pO2 ABG HCO3 ABG O2 Saturation ABG Base Excess ABG Hemoglobin ABG Oxyhemoglobin ABG Potassium ABG Glucose Oxyhemoglobin Carboxyhemoglobin Sodium Potassium Chloride 96.1 L Carbon Dioxide 40 H D BUN Creatinine < 0.2 L Glucose 115 H POC Glucose 109 H Calcium Ferritin Total Bilirubin Alkaline Phosphatase Lactate Dehydrogenase Total Creatine Kinase CK-MB (CK-2) Rel Index Troponin T 0.181 H* C-Reactive Protein Total Protein Albumin Prealbumin LDL Cholesterol Direct HDL Cholesterol Arterial Blood Glucose Arterial Blood Ionized Calcium Urine WBC (Auto) 04/24/20 04/24/20 04/25/20 11:17 18:23 00:12 WBC RBC Hgb Hct MCV MCH RDW Plt Count Lymph % (Auto) [place] % (Auto) Eos % (Auto) Lymph # (Auto) [place] # (Auto) Eos # (Auto) Seg Neutrophils % Seg Neuts % (Manual) Lymphocytes % (Manual) Monocytes % (Manual) Basophils % (Manual) Seg Neutrophils # Seg Neutrophils # Man Lymphocytes # (Manual) Monocytes # (Manual) Eosinophils # (Manual) Basophils # (Manual) PT INR D-Dimer ABG pH POC ABG pCO2 POC ABG pO2 ABG pO2 ABG HCO3 ABG O2 Saturation ABG Base Excess ABG Hemoglobin ABG Oxyhemoglobin ABG Potassium ABG Glucose Oxyhemoglobin Carboxyhemoglobin Sodium Potassium Chloride Carbon Dioxide BUN Creatinine Glucose POC Glucose 117 H 109 H 113 H Calcium Ferritin Total Bilirubin Alkaline Phosphatase Lactate Dehydrogenase Total Creatine Kinase CK-MB (CK-2) Rel Index Troponin T C-Reactive Protein Total Protein Albumin Prealbumin LDL Cholesterol Direct HDL Cholesterol Arterial Blood Glucose Arterial Blood Ionized Calcium Urine WBC (Auto) 04/25/20 04/25/20 04/25/20 06:34 06:34 11:28 WBC 11.7 H RBC Hgb 10.0 L Hct 31.7 L MCV 82 L MCH 26 L RDW 17.5 H Plt Count 564 H Lymph % (Auto) [place] % (Auto) Eos % (Auto) Lymph # (Auto) [place] # (Auto) Eos # (Auto) Seg Neutrophils % Seg Neuts % (Manual) 78.0 H Lymphocytes % (Manual) 10.0 L Monocytes % (Manual) 9.0 H Basophils % (Manual) Seg Neutrophils # Seg Neutrophils # Man 9.1 H Lymphocytes # (Manual) Monocytes # (Manual) 1.1 H Eosinophils # (Manual) Basophils # (Manual) PT INR D-Dimer ABG pH POC ABG pCO2 POC ABG pO2 ABG pO2 ABG HCO3 ABG O2 Saturation ABG Base Excess ABG Hemoglobin ABG Oxyhemoglobin ABG Potassium ABG Glucose Oxyhemoglobin Carboxyhemoglobin Sodium Potassium Chloride Carbon Dioxide 39 H BUN Creatinine < 0.2 L Glucose 103 H POC Glucose 112 H Calcium Ferritin Total Bilirubin Alkaline Phosphatase Lactate Dehydrogenase Total Creatine Kinase CK-MB (CK-2) Rel Index Troponin T C-Reactive Protein Total Protein Albumin Prealbumin LDL Cholesterol Direct HDL Cholesterol Arterial Blood Glucose Arterial Blood Ionized Calcium Urine WBC (Auto) 04/27/20 04/27/20 04/27/20 11:48 17:08 23:31 WBC RBC Hgb Hct MCV MCH RDW Plt Count Lymph % (Auto) [place] % (Auto) Eos % (Auto) Lymph # (Auto) [place] # (Auto) Eos # (Auto) Seg Neutrophils % Seg Neuts % (Manual) Lymphocytes % (Manual) Monocytes % (Manual) Basophils % (Manual) Seg Neutrophils # Seg Neutrophils # Man Lymphocytes # (Manual) Monocytes # (Manual) Eosinophils # (Manual) Basophils # (Manual) PT INR D-Dimer ABG pH POC ABG pCO2 POC ABG pO2 ABG pO2 ABG HCO3 ABG O2 Saturation ABG Base Excess ABG Hemoglobin ABG Oxyhemoglobin ABG Potassium ABG Glucose Oxyhemoglobin Carboxyhemoglobin Sodium Potassium Chloride Carbon Dioxide BUN Creatinine Glucose POC Glucose 124 H 118 H 122 H Calcium Ferritin Total Bilirubin Alkaline Phosphatase Lactate Dehydrogenase Total Creatine Kinase CK-MB (CK-2) Rel Index Troponin T C-Reactive Protein Total Protein Albumin Prealbumin LDL Cholesterol Direct HDL Cholesterol Arterial Blood Glucose Arterial Blood Ionized Calcium Urine WBC (Auto) 04/28/20 04/29/20 04/29/20 05:42 00:14 05:30 WBC RBC Hgb Hct MCV MCH RDW Plt Count Lymph % (Auto) [place] % (Auto) Eos % (Auto) Lymph # (Auto) [place] # (Auto) Eos # (Auto) Seg Neutrophils % Seg Neuts % (Manual) Lymphocytes % (Manual) Monocytes % (Manual) Basophils % (Manual) Seg Neutrophils # Seg Neutrophils # Man Lymphocytes # (Manual) Monocytes # (Manual) Eosinophils # (Manual) Basophils # (Manual) PT INR D-Dimer ABG pH POC ABG pCO2 POC ABG pO2 ABG pO2 ABG HCO3 ABG O2 Saturation ABG Base Excess ABG Hemoglobin ABG Oxyhemoglobin ABG Potassium ABG Glucose Oxyhemoglobin Carboxyhemoglobin Sodium Potassium Chloride Carbon Dioxide BUN Creatinine Glucose POC Glucose 122 H 115 H 123 H Calcium Ferritin Total Bilirubin Alkaline Phosphatase Lactate Dehydrogenase Total Creatine Kinase CK-MB (CK-2) Rel Index Troponin T C-Reactive Protein Total Protein Albumin Prealbumin LDL Cholesterol Direct HDL Cholesterol Arterial Blood Glucose Arterial Blood Ionized Calcium Urine WBC (Auto) 04/30/20 05/01/20 05/01/20 00:29 05:39 12:30 WBC RBC Hgb Hct MCV MCH RDW Plt Count Lymph % (Auto) [place] % (Auto) Eos % (Auto) Lymph # (Auto) [place] # (Auto) Eos # (Auto) Seg Neutrophils % Seg Neuts % (Manual) Lymphocytes % (Manual) Monocytes % (Manual) Basophils % (Manual) Seg Neutrophils # Seg Neutrophils # Man Lymphocytes # (Manual) Monocytes # (Manual) Eosinophils # (Manual) Basophils # (Manual) PT INR D-Dimer ABG pH POC ABG pCO2 POC ABG pO2 ABG pO2 ABG HCO3 ABG O2 Saturation ABG Base Excess ABG Hemoglobin ABG Oxyhemoglobin ABG Potassium ABG Glucose Oxyhemoglobin Carboxyhemoglobin Sodium Potassium Chloride Carbon Dioxide BUN Creatinine Glucose POC Glucose 106 H 109 H 108 H Calcium Ferritin Total Bilirubin Alkaline Phosphatase Lactate Dehydrogenase Total Creatine Kinase CK-MB (CK-2) Rel Index Troponin T C-Reactive Protein Total Protein Albumin Prealbumin LDL Cholesterol Direct HDL Cholesterol Arterial Blood Glucose Arterial Blood Ionized Calcium Urine WBC (Auto) 05/01/20 05/03/20 05/03/20 23:35 05:09 11:36 WBC RBC Hgb Hct MCV MCH RDW Plt Count Lymph % (Auto) [place] % (Auto) Eos % (Auto) Lymph # (Auto) [place] # (Auto) Eos # (Auto) Seg Neutrophils % Seg Neuts % (Manual) Lymphocytes % (Manual) Monocytes % (Manual) Basophils % (Manual) Seg Neutrophils # Seg Neutrophils # Man Lymphocytes # (Manual) Monocytes # (Manual) Eosinophils # (Manual) Basophils # (Manual) PT INR D-Dimer ABG pH POC ABG pCO2 POC ABG pO2 ABG pO2 ABG HCO3 ABG O2 Saturation ABG Base Excess ABG Hemoglobin ABG Oxyhemoglobin ABG Potassium ABG Glucose Oxyhemoglobin Carboxyhemoglobin Sodium Potassium Chloride Carbon Dioxide BUN Creatinine Glucose POC Glucose 116 H 117 H 116 H Calcium Ferritin Total Bilirubin Alkaline Phosphatase Lactate Dehydrogenase Total Creatine Kinase CK-MB (CK-2) Rel Index Troponin T C-Reactive Protein Total Protein Albumin Prealbumin LDL Cholesterol Direct HDL Cholesterol Arterial Blood Glucose Arterial Blood Ionized Calcium Urine WBC (Auto) 05/03/20 05/03/20 05/03/20 14:06 14:06 23:39 WBC 12.5 H RBC Hgb 10.0 L Hct 31.2 L MCV 80 L MCH 26 L RDW 17.6 H Plt Count 488 H Lymph % (Auto) [place] % (Auto) Eos % (Auto) Lymph # (Auto) [place] # (Auto) Eos # (Auto) Seg Neutrophils % Seg Neuts % (Manual) Lymphocytes % (Manual) Monocytes % (Manual) Basophils % (Manual) Seg Neutrophils # Seg Neutrophils # Man Lymphocytes # (Manual) Monocytes # (Manual) Eosinophils # (Manual) Basophils # (Manual) PT INR D-Dimer ABG pH POC ABG pCO2 POC ABG pO2 ABG pO2 ABG HCO3 ABG O2 Saturation ABG Base Excess ABG Hemoglobin ABG Oxyhemoglobin ABG Potassium ABG Glucose Oxyhemoglobin Carboxyhemoglobin Sodium Potassium Chloride 95.4 L Carbon Dioxide 40 H BUN Creatinine < 0.2 L Glucose 121 H POC Glucose 107 H Calcium Ferritin Total Bilirubin Alkaline Phosphatase Lactate Dehydrogenase Total Creatine Kinase CK-MB (CK-2) Rel Index Troponin T C-Reactive Protein Total Protein Albumin Prealbumin LDL Cholesterol Direct HDL Cholesterol Arterial Blood Glucose Arterial Blood Ionized Calcium Urine WBC (Auto) 05/04/20 05/04/20 05/04/20 11:31 16:57 23:18 WBC RBC Hgb Hct MCV MCH RDW Plt Count Lymph % (Auto) [place] % (Auto) Eos % (Auto) Lymph # (Auto) [place] # (Auto) Eos # (Auto) Seg Neutrophils % Seg Neuts % (Manual) Lymphocytes % (Manual) Monocytes % (Manual) Basophils % (Manual) Seg Neutrophils # Seg Neutrophils # Man Lymphocytes # (Manual) Monocytes # (Manual) Eosinophils # (Manual) Basophils # (Manual) PT INR D-Dimer ABG pH POC ABG pCO2 POC ABG pO2 ABG pO2 ABG HCO3 ABG O2 Saturation ABG Base Excess ABG Hemoglobin ABG Oxyhemoglobin ABG Potassium ABG Glucose Oxyhemoglobin Carboxyhemoglobin Sodium Potassium Chloride Carbon Dioxide BUN Creatinine Glucose POC Glucose 113 H 126 H 126 H Calcium Ferritin Total Bilirubin Alkaline Phosphatase Lactate Dehydrogenase Total Creatine Kinase CK-MB (CK-2) Rel Index Troponin T C-Reactive Protein Total Protein Albumin Prealbumin LDL Cholesterol Direct HDL Cholesterol Arterial Blood Glucose Arterial Blood Ionized Calcium Urine WBC (Auto) 05/05/20 05/05/20 05/05/20 05:32 11:11 23:57 WBC RBC Hgb Hct MCV MCH RDW Plt Count Lymph % (Auto) [place] % (Auto) Eos % (Auto) Lymph # (Auto) [place] # (Auto) Eos # (Auto) Seg Neutrophils % Seg Neuts % (Manual) Lymphocytes % (Manual) Monocytes % (Manual) Basophils % (Manual) Seg Neutrophils # Seg Neutrophils # Man Lymphocytes # (Manual) Monocytes # (Manual) Eosinophils # (Manual) Basophils # (Manual) PT INR D-Dimer ABG pH POC ABG pCO2 POC ABG pO2 ABG pO2 ABG HCO3 ABG O2 Saturation ABG Base Excess ABG Hemoglobin ABG Oxyhemoglobin ABG Potassium ABG Glucose Oxyhemoglobin Carboxyhemoglobin Sodium Potassium Chloride Carbon Dioxide BUN Creatinine Glucose POC Glucose 109 H 124 H 119 H Calcium Ferritin Total Bilirubin Alkaline Phosphatase Lactate Dehydrogenase Total Creatine Kinase CK-MB (CK-2) Rel Index Troponin T C-Reactive Protein Total Protein Albumin Prealbumin LDL Cholesterol Direct HDL Cholesterol Arterial Blood Glucose Arterial Blood Ionized Calcium Urine WBC (Auto) 05/06/20 05/06/20 05/07/20 05:34 23:08 04:43 WBC RBC Hgb 10.1 L Hct 31.9 L MCV 81 L MCH 25 L RDW 17.6 H Plt Count 506 H Lymph % (Auto) [place] % (Auto) 8.6 H Eos % (Auto) Lymph # (Auto) [place] # (Auto) 0.9 H Eos # (Auto) Seg Neutrophils % Seg Neuts % (Manual) Lymphocytes % (Manual) Monocytes % (Manual) Basophils % (Manual) Seg Neutrophils # Seg Neutrophils # Man Lymphocytes # (Manual) Monocytes # (Manual) Eosinophils # (Manual) Basophils # (Manual) PT INR D-Dimer ABG pH POC ABG pCO2 POC ABG pO2 ABG pO2 ABG HCO3 ABG O2 Saturation ABG Base Excess ABG Hemoglobin ABG Oxyhemoglobin ABG Potassium ABG Glucose Oxyhemoglobin Carboxyhemoglobin Sodium Potassium Chloride Carbon Dioxide BUN Creatinine Glucose POC Glucose 121 H 107 H Calcium Ferritin Total Bilirubin Alkaline Phosphatase Lactate Dehydrogenase Total Creatine Kinase CK-MB (CK-2) Rel Index Troponin T C-Reactive Protein Total Protein Albumin Prealbumin LDL Cholesterol Direct HDL Cholesterol Arterial Blood Glucose Arterial Blood Ionized Calcium Urine WBC (Auto) 05/07/20 05/07/20 05/07/20 06:18 17:13 23:29 WBC RBC Hgb Hct MCV MCH RDW Plt Count Lymph % (Auto) [place] % (Auto) Eos % (Auto) Lymph # (Auto) [place] # (Auto) Eos # (Auto) Seg Neutrophils % Seg Neuts % (Manual) Lymphocytes % (Manual) Monocytes % (Manual) Basophils % (Manual) Seg Neutrophils # Seg Neutrophils # Man Lymphocytes # (Manual) Monocytes # (Manual) Eosinophils # (Manual) Basophils # (Manual) PT INR D-Dimer ABG pH POC ABG pCO2 POC ABG pO2 ABG pO2 ABG HCO3 ABG O2 Saturation ABG Base Excess ABG Hemoglobin ABG Oxyhemoglobin ABG Potassium ABG Glucose Oxyhemoglobin Carboxyhemoglobin Sodium Potassium Chloride Carbon Dioxide BUN Creatinine Glucose POC Glucose 121 H 122 H 114 H Calcium Ferritin Total Bilirubin Alkaline Phosphatase Lactate Dehydrogenase Total Creatine Kinase CK-MB (CK-2) Rel Index Troponin T C-Reactive Protein Total Protein Albumin Prealbumin LDL Cholesterol Direct HDL Cholesterol Arterial Blood Glucose Arterial Blood Ionized Calcium Urine WBC (Auto) 05/08/20 05/08/20 05/08/20 05:20 11:57 23:42 WBC RBC Hgb Hct MCV MCH RDW Plt Count Lymph % (Auto) [place] % (Auto) Eos % (Auto) Lymph # (Auto) [place] # (Auto) Eos # (Auto) Seg Neutrophils % Seg Neuts % (Manual) Lymphocytes % (Manual) Monocytes % (Manual) Basophils % (Manual) Seg Neutrophils # Seg Neutrophils # Man Lymphocytes # (Manual) Monocytes # (Manual) Eosinophils # (Manual) Basophils # (Manual) PT INR D-Dimer ABG pH POC ABG pCO2 POC ABG pO2 ABG pO2 ABG HCO3 ABG O2 Saturation ABG Base Excess ABG Hemoglobin ABG Oxyhemoglobin ABG Potassium ABG Glucose Oxyhemoglobin Carboxyhemoglobin Sodium Potassium Chloride Carbon Dioxide BUN Creatinine Glucose POC Glucose 121 H 113 H 135 H Calcium Ferritin Total Bilirubin Alkaline Phosphatase Lactate Dehydrogenase Total Creatine Kinase CK-MB (CK-2) Rel Index Troponin T C-Reactive Protein Total Protein Albumin Prealbumin LDL Cholesterol Direct HDL Cholesterol Arterial Blood Glucose Arterial Blood Ionized Calcium Urine WBC (Auto) 05/09/20 05/09/20 05/09/20 05:31 11:11 16:06 WBC RBC Hgb Hct MCV MCH RDW Plt Count Lymph % (Auto) [place] % (Auto) Eos % (Auto) Lymph # (Auto) [place] # (Auto) Eos # (Auto) Seg Neutrophils % Seg Neuts % (Manual) Lymphocytes % (Manual) Monocytes % (Manual) Basophils % (Manual) Seg Neutrophils # Seg Neutrophils # Man Lymphocytes # (Manual) Monocytes # (Manual) Eosinophils # (Manual) Basophils # (Manual) PT INR D-Dimer ABG pH POC ABG pCO2 POC ABG pO2 ABG pO2 ABG HCO3 ABG O2 Saturation ABG Base Excess ABG Hemoglobin ABG Oxyhemoglobin ABG Potassium ABG Glucose Oxyhemoglobin Carboxyhemoglobin Sodium 136 L Potassium Chloride 97.0 L Carbon Dioxide 34 H BUN Creatinine < 0.2 L Glucose 107 H POC Glucose 66 L 127 H Calcium Ferritin Total Bilirubin Alkaline Phosphatase Lactate Dehydrogenase Total Creatine Kinase CK-MB (CK-2) Rel Index Troponin T C-Reactive Protein Total Protein Albumin Prealbumin LDL Cholesterol Direct HDL Cholesterol Arterial Blood Glucose Arterial Blood Ionized Calcium Urine WBC (Auto) 05/09/20 05/10/20 05/10/20 23:19 04:59 11:28 WBC RBC Hgb Hct MCV MCH RDW Plt Count Lymph % (Auto) [place] % (Auto) Eos % (Auto) Lymph # (Auto) [place] # (Auto) Eos # (Auto) Seg Neutrophils % Seg Neuts % (Manual) Lymphocytes % (Manual) Monocytes % (Manual) Basophils % (Manual) Seg Neutrophils # Seg Neutrophils # Man Lymphocytes # (Manual) Monocytes # (Manual) Eosinophils # (Manual) Basophils # (Manual) PT INR D-Dimer ABG pH POC ABG pCO2 POC ABG pO2 ABG pO2 ABG HCO3 ABG O2 Saturation ABG Base Excess ABG Hemoglobin ABG Oxyhemoglobin ABG Potassium ABG Glucose Oxyhemoglobin Carboxyhemoglobin Sodium Potassium Chloride Carbon Dioxide BUN Creatinine Glucose POC Glucose 108 H 126 H 124 H Calcium Ferritin Total Bilirubin Alkaline Phosphatase Lactate Dehydrogenase Total Creatine Kinase CK-MB (CK-2) Rel Index Troponin T C-Reactive Protein Total Protein Albumin Prealbumin LDL Cholesterol Direct HDL Cholesterol Arterial Blood Glucose Arterial Blood Ionized Calcium Urine WBC (Auto) 05/10/20 05/11/20 05/11/20 23:56 06:13 11:44 WBC RBC Hgb Hct MCV MCH RDW Plt Count Lymph % (Auto) [place] % (Auto) Eos % (Auto) Lymph # (Auto) [place] # (Auto) Eos # (Auto) Seg Neutrophils % Seg Neuts % (Manual) Lymphocytes % (Manual) Monocytes % (Manual) Basophils % (Manual) Seg Neutrophils # Seg Neutrophils # Man Lymphocytes # (Manual) Monocytes # (Manual) Eosinophils # (Manual) Basophils # (Manual) PT INR D-Dimer ABG pH POC ABG pCO2 POC ABG pO2 ABG pO2 ABG HCO3 ABG O2 Saturation ABG Base Excess ABG Hemoglobin ABG Oxyhemoglobin ABG Potassium ABG Glucose Oxyhemoglobin Carboxyhemoglobin Sodium Potassium Chloride Carbon Dioxide BUN Creatinine Glucose POC Glucose 113 H 124 H 125 H Calcium Ferritin Total Bilirubin Alkaline Phosphatase Lactate Dehydrogenase Total Creatine Kinase CK-MB (CK-2) Rel Index Troponin T C-Reactive Protein Total Protein Albumin Prealbumin LDL Cholesterol Direct HDL Cholesterol Arterial Blood Glucose Arterial Blood Ionized Calcium Urine WBC (Auto) 05/12/20 05/12/20 05/12/20 06:04 12:17 17:23 WBC RBC Hgb Hct MCV MCH RDW Plt Count Lymph % (Auto) [place] % (Auto) Eos % (Auto) Lymph # (Auto) [place] # (Auto) Eos # (Auto) Seg Neutrophils % Seg Neuts % (Manual) Lymphocytes % (Manual) Monocytes % (Manual) Basophils % (Manual) Seg Neutrophils # Seg Neutrophils # Man Lymphocytes # (Manual) Monocytes # (Manual) Eosinophils # (Manual) Basophils # (Manual) PT INR D-Dimer ABG pH POC ABG pCO2 POC ABG pO2 ABG pO2 ABG HCO3 ABG O2 Saturation ABG Base Excess ABG Hemoglobin ABG Oxyhemoglobin ABG Potassium ABG Glucose Oxyhemoglobin Carboxyhemoglobin Sodium Potassium Chloride Carbon Dioxide BUN Creatinine Glucose POC Glucose 135 H 136 H 133 H Calcium Ferritin Total Bilirubin Alkaline Phosphatase Lactate Dehydrogenase Total Creatine Kinase CK-MB (CK-2) Rel Index Troponin T C-Reactive Protein Total Protein Albumin Prealbumin LDL Cholesterol Direct HDL Cholesterol Arterial Blood Glucose Arterial Blood Ionized Calcium Urine WBC (Auto) 05/12/20 05/13/20 05/13/20 23:34 05:36 11:25 WBC RBC Hgb Hct MCV MCH RDW Plt Count Lymph % (Auto) [place] % (Auto) Eos % (Auto) Lymph # (Auto) [place] # (Auto) Eos # (Auto) Seg Neutrophils % Seg Neuts % (Manual) Lymphocytes % (Manual) Monocytes % (Manual) Basophils % (Manual) Seg Neutrophils # Seg Neutrophils # Man Lymphocytes # (Manual) Monocytes # (Manual) Eosinophils # (Manual) Basophils # (Manual) PT INR D-Dimer ABG pH POC ABG pCO2 POC ABG pO2 ABG pO2 ABG HCO3 ABG O2 Saturation ABG Base Excess ABG Hemoglobin ABG Oxyhemoglobin ABG Potassium ABG Glucose Oxyhemoglobin Carboxyhemoglobin Sodium Potassium Chloride Carbon Dioxide BUN Creatinine Glucose POC Glucose 141 H 131 H 148 H Calcium Ferritin Total Bilirubin Alkaline Phosphatase Lactate Dehydrogenase Total Creatine Kinase CK-MB (CK-2) Rel Index Troponin T C-Reactive Protein Total Protein Albumin Prealbumin LDL Cholesterol Direct HDL Cholesterol Arterial Blood Glucose Arterial Blood Ionized Calcium Urine WBC (Auto) 05/13/20 05/14/20 05/14/20 16:40 00:11 05:03 WBC RBC Hgb Hct MCV MCH RDW Plt Count Lymph % (Auto) [place] % (Auto) Eos % (Auto) Lymph # (Auto) [place] # (Auto) Eos # (Auto) Seg Neutrophils % Seg Neuts % (Manual) Lymphocytes % (Manual) Monocytes % (Manual) Basophils % (Manual) Seg Neutrophils # Seg Neutrophils # Man Lymphocytes # (Manual) Monocytes # (Manual) Eosinophils # (Manual) Basophils # (Manual) PT INR D-Dimer ABG pH POC ABG pCO2 POC ABG pO2 ABG pO2 ABG HCO3 ABG O2 Saturation ABG Base Excess ABG Hemoglobin ABG Oxyhemoglobin ABG Potassium ABG Glucose Oxyhemoglobin Carboxyhemoglobin Sodium Potassium Chloride Carbon Dioxide BUN Creatinine Glucose POC Glucose 118 H 128 H 129 H Calcium Ferritin Total Bilirubin Alkaline Phosphatase Lactate Dehydrogenase Total Creatine Kinase CK-MB (CK-2) Rel Index Troponin T C-Reactive Protein Total Protein Albumin Prealbumin LDL Cholesterol Direct HDL Cholesterol Arterial Blood Glucose Arterial Blood Ionized Calcium Urine WBC (Auto) 05/14/20 05/15/20 05/16/20 11:38 23:46 05:20 WBC RBC Hgb Hct MCV MCH RDW Plt Count Lymph % (Auto) [place] % (Auto) Eos % (Auto) Lymph # (Auto) [place] # (Auto) Eos # (Auto) Seg Neutrophils % Seg Neuts % (Manual) Lymphocytes % (Manual) Monocytes % (Manual) Basophils % (Manual) Seg Neutrophils # Seg Neutrophils # Man Lymphocytes # (Manual) Monocytes # (Manual) Eosinophils # (Manual) Basophils # (Manual) PT INR D-Dimer ABG pH POC ABG pCO2 POC ABG pO2 ABG pO2 ABG HCO3 ABG O2 Saturation ABG Base Excess ABG Hemoglobin ABG Oxyhemoglobin ABG Potassium ABG Glucose Oxyhemoglobin Carboxyhemoglobin Sodium Potassium Chloride Carbon Dioxide BUN Creatinine Glucose POC Glucose 134 H 107 H 122 H Calcium Ferritin Total Bilirubin Alkaline Phosphatase Lactate Dehydrogenase Total Creatine Kinase CK-MB (CK-2) Rel Index Troponin T C-Reactive Protein Total Protein Albumin Prealbumin LDL Cholesterol Direct HDL Cholesterol Arterial Blood Glucose Arterial Blood Ionized Calcium Urine WBC (Auto) 05/16/20 05/16/20 05/18/20 11:57 23:51 11:18 WBC RBC Hgb Hct MCV MCH RDW Plt Count Lymph % (Auto) [place] % (Auto) Eos % (Auto) Lymph # (Auto) [place] # (Auto) Eos # (Auto) Seg Neutrophils % Seg Neuts % (Manual) Lymphocytes % (Manual) Monocytes % (Manual) Basophils % (Manual) Seg Neutrophils # Seg Neutrophils # Man Lymphocytes # (Manual) Monocytes # (Manual) Eosinophils # (Manual) Basophils # (Manual) PT INR D-Dimer ABG pH POC ABG pCO2 POC ABG pO2 ABG pO2 ABG HCO3 ABG O2 Saturation ABG Base Excess ABG Hemoglobin ABG Oxyhemoglobin ABG Potassium ABG Glucose Oxyhemoglobin Carboxyhemoglobin Sodium Potassium Chloride Carbon Dioxide BUN Creatinine Glucose POC Glucose 108 H 111 H 115 H Calcium Ferritin Total Bilirubin Alkaline Phosphatase Lactate Dehydrogenase Total Creatine Kinase CK-MB (CK-2) Rel Index Troponin T C-Reactive Protein Total Protein Albumin Prealbumin LDL Cholesterol Direct HDL Cholesterol Arterial Blood Glucose Arterial Blood Ionized Calcium Urine WBC (Auto) 05/18/20 05/18/20 05/19/20 16:18 23:38 05:07 WBC RBC Hgb Hct MCV MCH RDW Plt Count Lymph % (Auto) [place] % (Auto) Eos % (Auto) Lymph # (Auto) [place] # (Auto) Eos # (Auto) Seg Neutrophils % Seg Neuts % (Manual) Lymphocytes % (Manual) Monocytes % (Manual) Basophils % (Manual) Seg Neutrophils # Seg Neutrophils # Man Lymphocytes # (Manual) Monocytes # (Manual) Eosinophils # (Manual) Basophils # (Manual) PT INR D-Dimer ABG pH POC ABG pCO2 POC ABG pO2 ABG pO2 ABG HCO3 ABG O2 Saturation ABG Base Excess ABG Hemoglobin ABG Oxyhemoglobin ABG Potassium ABG Glucose Oxyhemoglobin Carboxyhemoglobin Sodium Potassium Chloride Carbon Dioxide BUN Creatinine Glucose POC Glucose 110 H 128 H 121 H Calcium Ferritin Total Bilirubin Alkaline Phosphatase Lactate Dehydrogenase Total Creatine Kinase CK-MB (CK-2) Rel Index Troponin T C-Reactive Protein Total Protein Albumin Prealbumin LDL Cholesterol Direct HDL Cholesterol Arterial Blood Glucose Arterial Blood Ionized Calcium Urine WBC (Auto) 05/19/20 05/19/20 05/19/20 11:36 16:49 23:17 WBC RBC Hgb Hct MCV MCH RDW Plt Count Lymph % (Auto) [place] % (Auto) Eos % (Auto) Lymph # (Auto) [place] # (Auto) Eos # (Auto) Seg Neutrophils % Seg Neuts % (Manual) Lymphocytes % (Manual) Monocytes % (Manual) Basophils % (Manual) Seg Neutrophils # Seg Neutrophils # Man Lymphocytes # (Manual) Monocytes # (Manual) Eosinophils # (Manual) Basophils # (Manual) PT INR D-Dimer ABG pH POC ABG pCO2 POC ABG pO2 ABG pO2 ABG HCO3 ABG O2 Saturation ABG Base Excess ABG Hemoglobin ABG Oxyhemoglobin ABG Potassium ABG Glucose Oxyhemoglobin Carboxyhemoglobin Sodium Potassium Chloride Carbon Dioxide BUN Creatinine Glucose POC Glucose 120 H 110 H 122 H Calcium Ferritin Total Bilirubin Alkaline Phosphatase Lactate Dehydrogenase Total Creatine Kinase CK-MB (CK-2) Rel Index Troponin T C-Reactive Protein Total Protein Albumin Prealbumin LDL Cholesterol Direct HDL Cholesterol Arterial Blood Glucose Arterial Blood Ionized Calcium Urine WBC (Auto) 05/20/20 05/20/20 05/21/20 05:17 23:55 04:18 WBC RBC Hgb 11.2 L Hct 35.4 L MCV 81 L MCH 25 L RDW 18.2 H Plt Count 458 H Lymph % (Auto) [place] % (Auto) 8.8 H Eos % (Auto) 7.2 H Lymph # (Auto) [place] # (Auto) Eos # (Auto) 0.6 H Seg Neutrophils % Seg Neuts % (Manual) Lymphocytes % (Manual) Monocytes % (Manual) Basophils % (Manual) Seg Neutrophils # Seg Neutrophils # Man Lymphocytes # (Manual) Monocytes # (Manual) Eosinophils # (Manual) Basophils # (Manual) PT INR D-Dimer ABG pH POC ABG pCO2 POC ABG pO2 ABG pO2 ABG HCO3 ABG O2 Saturation ABG Base Excess ABG Hemoglobin ABG Oxyhemoglobin ABG Potassium ABG Glucose Oxyhemoglobin Carboxyhemoglobin Sodium Potassium Chloride Carbon Dioxide BUN Creatinine Glucose POC Glucose 133 H 128 H Calcium Ferritin Total Bilirubin Alkaline Phosphatase Lactate Dehydrogenase Total Creatine Kinase CK-MB (CK-2) Rel Index Troponin T C-Reactive Protein Total Protein Albumin Prealbumin LDL Cholesterol Direct HDL Cholesterol Arterial Blood Glucose Arterial Blood Ionized Calcium Urine WBC (Auto) 05/21/20 05/21/20 04:18 05:02 WBC RBC Hgb Hct MCV MCH RDW Plt Count Lymph % (Auto) [place] % (Auto) Eos % (Auto) Lymph # (Auto) [place] # (Auto) Eos # (Auto) Seg Neutrophils % Seg Neuts % (Manual) Lymphocytes % (Manual) Monocytes % (Manual) Basophils % (Manual) Seg Neutrophils # Seg Neutrophils # Man Lymphocytes # (Manual) Monocytes # (Manual) Eosinophils # (Manual) Basophils # (Manual) PT INR D-Dimer ABG pH POC ABG pCO2 POC ABG pO2 ABG pO2 ABG HCO3 ABG O2 Saturation ABG Base Excess ABG Hemoglobin ABG Oxyhemoglobin ABG Potassium ABG Glucose Oxyhemoglobin Carboxyhemoglobin Sodium Potassium Chloride 97.2 L Carbon Dioxide 35 H BUN Creatinine < 0.2 L Glucose 128 H POC Glucose 125 H Calcium Ferritin Total Bilirubin Alkaline Phosphatase Lactate Dehydrogenase Total Creatine Kinase CK-MB (CK-2) Rel Index Troponin T C-Reactive Protein Total Protein Albumin Prealbumin LDL Cholesterol Direct HDL Cholesterol Arterial Blood Glucose Arterial Blood Ionized Calcium Urine WBC (Auto) Allied health notes reviewed: nursing
--- NOTE | 2020-05-21 13:06 | Progress Note ---
Assessment and Plan --Acute hypoxic hypercapnic respiratory failure; Intubated on mechanical ventilation. Etiology secondary to sepsis, ALS, multifocal pneumonia (Covid negative). S/p trach placement 03/07/20 --Status post cardiac arrest on 02/25, cardiac hernandez now stable --Dysphagia, status post PEG placement for tube feeding --ALS; Chronic Continue to provide supportive care --Elevated D-dimers; CTA chest, lower extremity venous Doppler both are negative Lovenox for DVT prophylaxis --Bilateral pneumonia; probably community-acquired Completed treatment ID recommendations appreciated --Sepsis secondary to pneumonia s/p empiric antibiotic --Elevated troponin; Serial cardiac enzymes, serial EKGs Echocardiogram, cardiology consult if needed --Hypernatremia Trend sodium Free water via feeding tube --Abdominal distention due to bladder outlet obstruction, resolved CT abdomen showed bladder outlet obstruction, urology consulted s/p drake placement by urology on 03/09 --Hypotension possibly from septic shock and bladder outlet obstruction improved following placing drake --Hypernatremia due to hypovolumia, resolved free water with TF --Constipation; Patient already received Dulcolax suppository and Colace Received milk of magnesia, with relief --DVT prophylaxis; Lovenox Brief history: 59-year-old male patient with significant past medical history of ALS, presented to ED with worsening shortness of breath since the morning BLOCK CHOPPER HAND. Patient was on a trilogy machine for breathing 18/11. EMS arrived, patient had O2 sats in the 80s. EMS attempted to place patient on their CPAP machine, however patient did not tolerate. Patient was admitted to the ICU with diagnosis of acute hypoxic respiratory failure and placed on BiPAP. Patient initially tolerated but later deteriorated with respiratory status. CTA chest showed no PE but significant for bilateral pneumonia. Doppler ultrasound also negative for DVT. COVID-19 test ordered and negative. Due to persistent hypoxia and asystolic/V. fib cardiac arrest, patient was intubated on 02/26/2020 at 1500. Patient now on mechanical ventilation in the ICU s/p trach placement and now unable to wean off from the mechanical ventilation. Patient now status post PEG placement for tube feeding. Patient most likely need long-term placement -LTAC versus SNF Daily course: 02/25/2020. CTA of the chest reveals no PE but does illustrate the bilateral pneumonia. Doppler ultrasound also negative for DVT. Blood cultures are pe nding. Await COVID-19 testing. Patient currently requiring BiPAP IPAP 24/EPAP 6 with FiO2 of 25%. Continue O2 and BiPAP as clinically indicated. ID and pulmonary consulted. 02/26/2020. Blood cultures are negative x48 hours and Covid testing negative as well. Continue antibiotics per ID recommendations for community-acquired bilateral pneumonia. Cardiology consultation for elevated troponin. Check echocardiogram. 02/27/2020. Events of yesterday noted with asystole following V. fib arrest. Patient currently on AC mode rate 20, tidal volume 400, FiO2 50% and a PEEP of 6. Follow-up echocardiogram for elevated troponin. Cardiology suspects NSTEMI Type 2 in the setting of acute resp failure. Chest CTA and BLE Dopplers neg. we will discontinue Decadron given the Covid PCR is negative. 02/28/2020. I spoke with the sister Felisa Eli who is the power of energy attorney regarding advanced directives and she instructed me that she would like to continue with aggressive care at this time. I informed her of the guarded prognosis and high mortality/morbidity and she voiced understanding. Patient currently with AC mode ventilation rate 18, tidal volume 400, FiO2 40% and a PEEP of 6. Continue antibiotics for pneumonia. ID previously consulted. Also consult neurology with regards to ALS. 02/29/2020; patient is intubated and on CPAP patient is alert and oriented. Patient has ALS. Dr. Álvarez spoke with his sister and she wants aggressive care. Continue antibiotics for pneumonia. Neurology consulted for ALS. Prognosis poor 03/01/2020; patient is intubated and on CPAP, patient is alert and oriented. I spoke with his 2 sisters about the management plan. 03/02/2020; patient is intubated and on CPAP. Patient was alert and oriented. I spoke with Dr. mohr and he thinks patient may need mechanical ventilation, likely his disease progressed. Dr. Flowers did debridement this morning. 03/03/2020; patient is intubated and on CPAP, patient was on trilogy and BiPAP at home. Patient has ALS. on spontaneous breathing trial. Patient is alert and oriented but quadriplegic. Patient has severe bilateral pneumonia and is on cefepime and Vanco, ID is following. Patient has sacral decubitus ulcer and debridement was done by Dr. Flowers and there is no osteomyelitis. 03/05. Patient still on broad-spectrum antibiotics. Status post sacral decubitus ulcer debridements-no osteomyelitis. Patient is on AC 25/400/30% PEEP 5. No blood gas results today. 03/06. Plan for tracheostomy by surgery. Still remains intubated. Labs reviewed-sodium 150. Started on free water 200 every 8hr. trend sodium. 03/07: s/p trach placement today, patient placed back on mechanical ventilation with trach. Plan to resume tube feeding with NG tube. Continue to monitor vitals, monitor BMP. 03/08: Patient noted to have distended abdomen with low urinary output. Obtain bladder scan rule out urine retention, UA and urine culture, continue to follow clinically. 03/09: Patient noted to have low blood pressure with SBP as low as 70s. Ordered for 500 mils normal saline bolus. CT abdomen showed bladder outlet obstruction, urology consulted. 03/10: placed on drake by urology o/n, improved urine outpt. cont to monitor BMP. resuded TF - cont free water with TF. wean off from vent as tolerated. 03/11: Vitals stable. cont TF, wean off from vent as tolerated. start on 1/2 NS for hypernatremia - follow BMP 03/12: wean off vent as tolerated, plan for speech eval, cont Tf for now, cont iv fluid 03/13: unable to wean off from vent, unable to do speech therapy eval. will need PEG tube, cont supportive care for now, cont NG tube feeding 03/14: consulted GI for PEg placemnet, cont supportive care. remains on vent at night 03/15: Discussed with GI, plan for PEG tube placement possibly tomorrow. Continue supportive care and wean off from vent as tolerated. Hold Lovenox dose tonight. 03/16: family didnot consent for PEG placement yesterday. I spoke with the megan rodriguez today and she is now agreeable for PEG tube. I explained the necessity of the procedure with RN to the patient also and he nodded started on tube feeding, for the procedure. will cont supportive care. planned for PEG tube placement tomorrow. 03/17: s/p PEG placement today, patient tolerated well, cont supportive care 03/18: Started on tube feeding with new PEG tube, continue to wean off vent as tolerated 03/19: cont to monitor with supportive care, wean off vent as tolerated 03/20: Continue to wean off vent as tolerated -but failing weaning trial. Still requiring vent support at night. Currently on PEG tube for tube feed. 03/21. Pt with PSV trials with FiO@ 30%, PEEP 6, PS 10. Currently on PEG tube for tube feed. 03/22/2020. Continue PSV trials per pulmonary. Continue bronchodilators. Patient tolerating tube feedings. Continue Robinul for secretion control. 03/23/2020. Continue PSV trials per pulmonary. Continue bronchodilators. Continue Scopolamine and Robinul for secretion control. Trach care/airway management. Mobility protocols for pressure ulcer prophylaxis. LTAC evaluation per case management 03/24/2020. Continue PSV trials with current settings pressure support 10, PEEP 6 and FiO2 30%. Continue bronchodilators/nebulizer. Continue Scopolamine and Robinul for secretion control. Trach care/airway management. Mobility protocols for pressure ulcer prophylaxis. LTAC evaluation per case management 03/25/2020. Pulmonary to proceed with T-piece trials today. Continue bronchodilators/nebulizer. Continue Scopolamine and Robinul for secretion control. Trach care/airway management. Mobility protocols for pressure ulcer prophylaxis. 03/26/2020. Patient currently with PSV 10/6 at FiO2 of 30%. Continue weaning and T-piece trials per protocol. Continue bronchodilators/nebulizer. Continue Scopolamine and Robinul for secretion control. Trach care/airway management. Mobility protocols for pressure ulcer prophylaxis. Continue tube feeding with aspiration precautions. 03/27/2020. Patient currently with PSV 10/6 at FiO2 of 30%. Continue weaning and T-piece trials per protocol. Continue bronchodilators/nebulizer. Continue Scopolamine and Robinul for secretion control. Trach care/airway management. Mobility protocols for pressure ulcer prophylaxis. Continue tube feeding with aspiration precautions. 03/28. Had temp 100.7F. He has been off antibiotics. Will send blood culture, ua, urine culture and chest xray. Had chest pain overnight and trop was elevated as well. Cardiology to evaluate 03/29. Has back pain due to position. He mentions his chest pain is positional. Has no other complaints. Still on mechanical ventilation 03/30. No chest pain today. Labs reviewed. Discussed chest pain with cardiology and team advised no further work up at this time. Can follow up with cardiology in the office after hospitalization 03/31. Lidocaine patch for lower back pain. 04/01. Discharge planning underway. CM notes reviewed. Discussed with daughter 04/02. CM trying to arrange discharge. Continue PSV trials. Discussed with patients significant other 04/04/2020; CM is working for discharge arrangement. Continue PSV trials. 04/05/2020; patient was seen and evaluated this morning and no change from baseline. Continue with PSV trials. Follow with aws consultant for discharge planning. 04/06/2020;patient was seen and evaluated this morning and no change from baseline. Continue with PSV trials. Follow with aws consultant for discharge planning. 04/07/2020; patient was seen and evaluated this morning and no change from baseline. Continue with PSV trials. Follow with aws consultant for discharge planning. 04/08/2020; patient is vent dependent. Discharge is per aws consultant. 04/09/2020 patient is vent dependent, possible LTAC placement 04/10/2020; tracheostomy on vent, vent dependent pending LTAC placement 04/11/2020; clinically no change, tracheostomy on ventilatory support, wean as tolerated, awaiting placement 04/12/2020; remains on ventilatory support, unable to wean, patient wants to see a speech therapist for sound box However we cannot try that as long as he is on ventilatory support, once he is weaned off vent We will consult speech therapist, plan of care reviewed with the patient and his nurse 04/14/2020; clinically no change, on ventilatory support, complains of constipation, milk of magnesia Closely monitor the patient and adjust the management as needed 04/15/2020; patient has some oral thrush on the tongue, will give Magic mouthwash/nystatin swish and spit Wean off vent as tolerated 04/16 patient is alert and oriented, unable to comprehend what he is trying to tell but appears to complain of some pain, no acute events overnight, all interdisciplinary notes reviewed. Waiting for LTAC versus [facility] facility placement 04/17/2020. Continue supportive care with mechanical ventilation. Patient currently on AC mode rate 10, tidal volume 400 FiO2 30% with a PEEP of 6. Discharge planning per case management. 04/18/2020. Patient remains on mechanical ventilation AC mode rate 10, tidal volume 400, FiO2 30% and PEEP of 6. Continue spontaneous breathing trials as tolerated. Previously, patient was considered for discharge home with skilled staff providing care for 12 hours 7 days/week. Continue discussed with case management discharge planning. 04/19/20. Patient remains on mechanical ventilation AC mode rate 10, tidal volume 400, FiO2 30% and PEEP of 6. Continue spontaneous breathing trials as tolerated. 04/20/2020. Patient remains on mechanical ventilation AC mode rate 10, tidal volume 400, FiO2 30% and PEEP of 6. Continue spontaneous breathing trials as tolerated. 04/21/2020. Patient remains on mechanical ventilation AC mode rate 10, tidal volume 400, FiO2 30% and PEEP of 6. Continue tracheostomy care, secretion control and airway management. Continue spontaneous breathing trials as tolerated. 04/22/2020. Patient remains on mechanical ventilation AC mode rate 10, tidal volume 400, FiO2 30% and PEEP of 6. Continue tracheostomy care, secretion control and airway management. Continue spontaneous breathing trials as tolera milana. 04/23/2020. Patient on mechanical ventilation AC mode rate 18, tidal volume 450, FiO2 30% and PEEP of 6. Continue tracheostomy care, secretion control and airway management. Continue spontaneous breathing trials as tolerated. Continue Robinul and scopolamine for secretions. Continue baclofen. 04/24/2020. Patient remains on AC mode ventilation rate 10, tidal volume 400, FiO2 30% and PEEP of 6. Continue tracheostomy care, secretion control and airway management. Continue spontaneous breathing trials as tolerated. Continue Robinul and scopolamine for secretions. Continue baclofen. Continue Xanax for anxiety and Ambien for sleep. Await case management follow-up with regards to discharge planning. 04/25/2020. Patient remains on AC mode ventilation rate 10, tidal volume 400, FiO2 30% and PEEP of 6. Continue tracheostomy care, secretion control and airway management. Continue spontaneous breathing trials as tolerated. Continue Robinul and scopolamine for secretions. Continue baclofen. Continue Xanax for anxiety and Ambien for sleep. Await case management follow-up with regards to discharge planning. 04/26. Patient remains on AC mode ventilation rate 10, tidal volume 400, FiO2 30% and PEEP of 6. Continue tracheostomy care, secretion control and airway management. Continue spontaneous breathing trials as tolerated. Continue Robinul and scopolamine for secretions. Continue baclofen. Continue Xanax for anxiety and Ambien for sleep. Await case management follow-up with regards to discharge planning. 04/27. Patient remains on AC mode ventilation rate 10, tidal volume 400, FiO2 30% and PEEP of 6. Continue tracheostomy care, secretion control and airway management. Continue spontaneous breathing trials as tolerated. Continue Robinul and scopolamine for secretions. Continue baclofen. Continue Xanax for anxiety and Ambien for sleep. Await case management follow-up with regards to discharge planning. 04/28/20 no acute events overnight, remains vent dependent, cardiology and pulmonary notes reviewed 04/29 remains intubated via tracheostomy, no acute events 04/30 no acute events overnight, cardiology note reviewed, remains vent dependent, discharge planning per case management 05/01 stable. cardiology and pulmonary notes reviewed. D/C acu-checks 05/02 - todate: Clinically stable, CM working on placement. Continue supportive care. Subjective Date of service: 05/21/20 Principal diagnosis: Ac on Ch Hypercapnic & hypoxemic Resp Failure; Severe Sepsis; Jamar PNA; ALS Interval history: Patient seen and examined Remains on trach tube Discussed with RN at the bedside Vitals reviewed -BP stable Tolerating tube feeding with PEG tube Objective - Exam Narrative Exam: GENERAL: Awake. Intubated with trach tube HEAD: No signs of head trauma. EYES: Pupils are equal. Extraocular motions intact. EARS: Hearing grossly intact. MOUTH: Oropharynx is normal. NECK: No adenopathy, no JVD. CHEST: Coarse breath sounds bilaterally CARDIAC: Regular rate and rhythm. S1 and S2, without murmurs, gallops, or rubs. VASCULAR: No Edema. Peripheral pulses normal and equal in all extremities. ABDOMEN: Soft, non tender and nondistended. Bowel Sounds normal. PEG in place NEUROLOGIC EXAM: Awake, paraplegic SKIN: No obvious lesions - Constitutional Vitals: Vital Signs - 12hr 05/21/20 05/21/20 05/21/20 02:00 03:00 03:10 Temperature Pulse Rate 97 H 95 H 121 H Respiratory 23 22 Rate Blood Pressure 148/98 134/98 134/98 O2 Sat by Pulse 97 97 Oximetry O2 Sat by Pulse Oximetry [ Assessment] 05/21/20 05/21/20 05/21/20 03:28 04:00 05:00 Temperature 98.6 F Pulse Rate 102 H 109 H Respiratory 24 20 Rate Blood Pressure 140/101 133/91 O2 Sat by Pulse 97 93 Oximetry O2 Sat by Pulse 97 Oximetry [ Assessment] 05/21/20 05/21/20 05/21/20 06:00 07:01 08:00 Temperature 98.3 F Pulse Rate 108 H 110 H 112 H Respiratory 25 H 22 18 Rate Blood Pressure 144/101 135/93 151/108 O2 Sat by Pulse 94 95 97 Oximetry O2 Sat by Pulse 99 Oximetry [ Assessment] 05/21/20 05/21/20 05/21/20 09:00 10:00 11:00 Temperature Pulse Rate 106 H 105 H 108 H Respiratory 21 21 20 Rate Blood Pressure 157/106 154/97 150/105 O2 Sat by Pulse 96 96 97 Oximetry O2 Sat by Pulse Oximetry [ Assessment] 05/21/20 05/21/20 12:00 12:01 Temperature 98.4 F Pulse Rate 95 H 109 H Respiratory 22 20 Rate Blood Pressure 131/89 137/87 O2 Sat by Pulse 99 95 Oximetry O2 Sat by Pulse Oximetry [ Assessment] - Labs CBC & Chem 7: 05/21/20 04:18 05/21/20 04:18 Labs: Abnormal lab results 05/20/20 05/21/20 05/21/20 Range/Units 23:55 04:18 04:18 Hgb 11.2 L (11.8-15.2) gm/dl Hct 35.4 L (35.5-45.6) % MCV 81 L (84-94) fl MCH 25 L (28-32) pg RDW 18.2 H (13.2-15.2) % Plt Count 458 H (140-440) K/mm3 [place] % (Auto) 8.8 H (0.0-7.3) % Eos % (Auto) 7.2 H (0.0-4.3) % Eos # (Auto) 0.6 H (0.0-0.4) K/mm3 Chloride 97.2 L (98-107) mmol/L Carbon Dioxide 35 H (22-30) mmol/L Creatinine < 0.2 L (0.8-1.3) mg/dL Glucose 128 H (75-100) mg/dL POC Glucose 128 H (70-105) mg/dL 05/21/20 Range/Units 05:02 Hgb (11.8-15.2) gm/dl Hct (35.5-45.6) % MCV (84-94) fl MCH (28-32) pg RDW (13.2-15.2) % Plt Count (140-440) K/mm3 [place] % (Auto) (0.0-7.3) % Eos % (Auto) (0.0-4.3) % Eos # (Auto) (0.0-0.4) K/mm3 Chloride (98-107) mmol/L Carbon Dioxide (22-30) mmol/L Creatinine (0.8-1.3) mg/dL Glucose (75-100) mg/dL POC Glucose 125 H (70-105) mg/dL HEART Score - HEART Score Troponin: Troponin T 0.181 ng/mL (0.00-0.029) H* 04/24/20 05:28
[2020-05-21] MEDS: D5W/0.9% NACL 1,000 ML IV SCH (22:38)
[2020-05-21] MEDS: SENNOSIDES 8.6 MG TAB PO SCH (22:40)
[2020-05-21] MEDS: ENOXAPARIN 40 MG/0.4 ML INJ SUB-Q SCH (22:41)
[2020-05-21] MEDS: ZOLPIDEM 5 MG TAB PO PRN (22:41)
[2020-05-22] MEDS ORDERED: hydrALAZINE 20 MG/1 ML INJ IV PRN (06:32)
[2020-05-22] MEDS: MORPHINE 2 MG/1 ML INJ IV PRN ×3 (06:38→21:33)
[2020-05-22] MEDS: DOCUSATE SODIUM 100 MG/10 ML ORAL LIQD FEEDTUBE SCH ×2 (09:53→21:57)
[2020-05-22] MEDS: TAMSULOSIN 0.4 MG CAP PO SCH (09:53)
[2020-05-22] MEDS: LANSOPRAZOLE 30 MG SOLUTAB FEEDTUBE SCH (09:53)
[2020-05-22] MEDS: GLYCOPYRROLATE 1 MG TAB PO SCH ×3 (09:53→21:35)
[2020-05-22] MEDS: ASPIRIN EC 81 MG TAB PO SCH (09:53)
[2020-05-22] MEDS: PREGABALIN 75 MG CAP PO SCH ×2 (09:54→21:56)
[2020-05-22] MEDS: BACLOFEN 10 MG TAB PO SCH ×2 (09:54→21:56)
[2020-05-22] MEDS: METOPROLOL TARTRATE 25 MG TAB PO SCH ×2 (09:54→21:56)
[2020-05-22] MEDS: LIDOCAINE 5% 1 EACH PATCH TD SCH (09:55)
[2020-05-22] MEDS: MAGIC MOUTHWASH 30ML PO SCH (09:55)
[2020-05-22] MEDS: ALPRAZolam 0.5 MG TAB PO PRN ×2 (10:03→21:56)
--- NOTE | 2020-05-22 13:48 | Progress Note ---
Assessment and Plan Patient Awake . Patient is on pressure support mechanical ventilation, Pressure support 10, FIO2 30%, PEEP 6 and O2 saturation running 98%. Recommend Continue spontaneous breathing trials as tolerated.Respiratory therapy told me, Patient r esisting to go on T tube trial ' Recommend to decrease pressure support to 5.Patient afebrile and has no leukocytosis. Chest xray done 05/02/20 reported Interval worsening of right lung base opacity now appears to be pleural parenchymal. This may be a worsened infectious process or development of right- sided pleural effusion and worsened right lung base atelectasis. Left lung base opacity is stable. Tracheostomy in stable position. Patient right lung base infiltrate reported intervel worsening, patient has no leukocytosis, recommend to place him antibiotic like zosyn. Repeat chest xray 05/11/20 reported Mild interval improvement in the hazy opacity at the right lung base as described. I suspect this represents an improving atelectasis over effusion. - Patient Problems (1) Acute on chronic respiratory failure with hypoxia and hypercapnia Current Visit: Yes Status: Acute Plan to address problem: Patient is resting on pressure support 10, FIO2 30%, PEEP 6. Albuterol inhaler 2 puffs po qid. Continue S/C Lovenox. Continue prevacid. Recommend continue spontaneous breathing trials. (2) Bleeding from wound Current Visit: Yes Status: Acute Plan to address problem: Management primary care , surgery and wound care. (3) Elevated d-dimer Current Visit: Yes Status: Acute Plan to address problem: Patients venous doppler studies of legs, CTA chest reported Negative for VTE. Patient is on S/C Lovenox 40 mg qd. (4) Elevated troponin Current Visit: Yes Status: Acute Plan to address problem: Management as per primary care and cardiology (5) NSTEMI (non-ST elevated myocardial infarction) Current Visit: Yes Status: Acute Plan to address problem: Management as per cardiology. (6) Pneumonia Current Visit: Yes Status: Acute Qualifiers: Laterality: bilateral Plan to address problem: Patient afebrile . Has mild leukocytosis. Repeat Chest xray done 05/02/20 reported Interval worsening of right lung base opacity now appears to be pleural parenchymal. This may be a worsened infectious process or development of right-sided pleural effusion and worsened right lung base atelectasis. Left lung base opacity is stable. Tracheostomy in stable position. Patient right lung base infiltrate reported intervel worsening, patient has no leukocytosis, recommend to place him antibiotic like zosyn. Repeating chest xray and ABGs. Repeat chest xray 05/11/20 reported Mild interval improvement in the hazy opacity at the right lung base as described. I suspect this represents an improving atelectasis over effusion. Subjective Date of service: 05/22/20 Principal diagnosis: Ac on Ch Hypercapnic & hypoxemic Resp Failure; Severe Sepsis; Jamar PNA; ALS Interval history: Patient Awake . Patient is on pressure support mechanical ventilation, Pressure support 10, FIO2 30%, PEEP 6 and O2 saturation running 98%. Recommend Continue spontaneous breathing trials as tolerated.Respiratory therapy told me, Patient resisting to go on T tube trial ' Recommend to decrease pressure support to 5.Patient afebrile and has no leukocytosis. Chest xray done 05/02/20 reported Interval worsening of right lung base opacity now appears to be pleural parenchymal. This may be a worsened infectious process or development of right- sided pleural effusion and worsened right lung base atelectasis. Left lung base opacity is stable. Tracheostomy in stable position. Patient right lung base infiltrate reported intervel worsening, patient has no leukocytosis, recommend to place him antibiotic like zosyn. Repeat chest xray 05/11/20 reported Mild interval improvement in the hazy opacity at the right lung base as described. I suspect this represents an improving atelectasis over effusion. Objective Vital Signs - 12hr 05/22/20 05/22/20 05/22/20 02:01 03:00 03:37 Temperature Pulse Rate 100 H 100 H 99 H Respiratory 25 H 24 Rate Blood Pressure 153/103 162/101 162/101 O2 Sat by Pulse 94 99 96 Oximetry O2 Sat by Pulse Oximetry [ Assessment] 05/22/20 05/22/20 05/22/20 04:00 05:00 06:00 Temperature 98.2 F Pulse Rate 99 H 106 H 109 H Respiratory 20 21 23 Rate Blood Pressure 153/102 166/113 169/111 O2 Sat by Pulse 97 96 94 Oximetry O2 Sat by Pulse Oximetry [ Assessment] 05/22/20 05/22/20 05/22/20 07:00 08:00 08:52 Temperature 97.4 F L Pulse Rate 102 H 103 H 102 H Respiratory 24 20 21 Rate Blood Pressure 169/106 150/105 150/105 O2 Sat by Pulse 95 98 Oximetry O2 Sat by Pulse Oximetry [ Assessment] 05/22/20 05/22/20 05/22/20 09:00 09:54 10:00 Temperature Pulse Rate 102 H 92 H 106 H Respiratory 20 24 Rate Blood Pressure 152/106 152/106 159/106 O2 Sat by Pulse 96 98 Oximetry O2 Sat by Pulse Oximetry [ Assessment] 05/22/20 05/22/20 05/22/20 11:00 11:34 12:00 Temperature 98.0 F Pulse Rate 91 H 100 H 98 H Respiratory 17 23 14 Rate Blood Pressure 130/94 130/94 130/94 O2 Sat by Pulse 100 100 100 Oximetry O2 Sat by Pulse Oximetry [ Assessment] 05/22/20 13:38 Temperature Pulse Rate Respiratory Rate Blood Pressure O2 Sat by Pulse Oximetry O2 Sat by Pulse 97 Oximetry [ Assessment] Constitutional: no acute distress, alert, other (thin middle aged male resting on pressure support ventilation.) Eyes: non-icteric ENT: oropharynx moist, other (S/P Tracheostomy) Neck: supple, no lymphadenopathy, no JVD Effort: mildly labored Ascultation: Bilateral: diminished breath sounds, wheezes, rhonchi (scant in bases) Percussion: Bilateral: not dull Cardiovascular: regular rate and rhythm, other (S1,S2, no murmurs) Gastrointestinal: normoactive bowel sounds, soft, non-tender, non-distended Integumentary: normal, decubitus ulcer (sacral / gluteal) Extremities: no cyanosis, no edema, pulses normal, other (atrophic looking limbs) Neurologic: pupils equal and round, other (motor strength in extremities 1-2/5, awake, alert, mouths words to make needs known) Psychiatric: depressed CBC and BMP: 05/21/20 04:18 05/21/20 04:18 ABG, PT/INR, D-dimer: ABG ABG pH 7.371 (7.320-7.450) 03/08/20 12:34 POC ABG pCO2 63.1 mmHg (32.0-48.0) H 03/08/20 12:34 ABG pCO2 60.1 mm Hg 03/06/20 04:34 POC ABG pO2 90.5 mmHg (83-108) 03/08/20 12:34 ABG pO2 88.6 mm Hg (80.0-90.0) 03/06/20 04:34 POC ABG HCO3 35.7 03/08/20 12:34 ABG O2 Saturation 97.0 % (95.0-99.0) 03/06/20 04:34 PT/INR, D-dimer PT 15.6 Sec. (12.2-14.9) H 02/24/20 09:19 INR 1.21 (0.87-1.13) H 02/24/20 09:19 D-Dimer 1311.96 ng/mlDDU (0-234) H 02/24/20 09:19 Abnormal lab findings: Abnormal Labs 02/24/20 02/24/20 02/24/20 09:19 09:19 09:19 WBC 20.2 H RBC 5.05 H Hgb Hct MCV MCH RDW 15.3 H Plt Count Lymph % (Auto) [place] % (Auto) Eos % (Auto) Lymph # (Auto) [place] # (Auto) Eos # (Auto) Seg Neutrophils % Seg Neuts % (Manual) 86.0 H Lymphocytes % (Manual) 1.0 L Monocytes % (Manual) Basophils % (Manual) Seg Neutrophils # Seg Neutrophils # Man 17.4 H Lymphocytes # (Manual) 0.2 L Monocytes # (Manual) Eosinophils # (Manual) Basophils # (Manual) PT 15.6 H INR 1.21 H D-Dimer 1311.96 H ABG pH POC ABG pCO2 POC ABG pO2 ABG pO2 ABG HCO3 ABG O2 Saturation ABG Base Excess ABG Hemoglobin ABG Oxyhemoglobin ABG Potassium ABG Glucose Oxyhemoglobin Carboxyhemoglobin Sodium 135 L Potassium 3.2 L Chloride 92.2 L Carbon Dioxide BUN 6 L Creatinine < 0.2 L Glucose 124 H POC Glucose Calcium Ferritin Total Bilirubin 2.30 H Alkaline Phosphatase 132 H Lactate Dehydrogenase Total Creatine Kinase CK-MB (CK-2) Rel Index Troponin T 0.080 H C-Reactive Protein Total Protein Albumin 3.6 L Prealbumin LDL Cholesterol Direct 41 L HDL Cholesterol Arterial Blood Glucose Arterial Blood Ionized Calcium Urine WBC (Auto) 02/24/20 02/24/20 02/24/20 09:19 09:58 10:01 WBC RBC Hgb Hct MCV MCH RDW Plt Count Lymph % (Auto) [place] % (Auto) Eos % (Auto) Lymph # (Auto) [place] # (Auto) Eos # (Auto) Seg Neutrophils % Seg Neuts % (Manual) Lymphocytes % (Manual) Monocytes % (Manual) Basophils % (Manual) Seg Neutrophils # Seg Neutrophils # Man Lymphocytes # (Manual) Monocytes # (Manual) Eosinophils # (Manual) Basophils # (Manual) PT INR D-Dimer ABG pH 7.176 L* POC ABG pCO2 POC ABG pO2 ABG pO2 91.2 H ABG HCO3 ABG O2 Saturation ABG Base Excess -4.6 L ABG Hemoglobin ABG Oxyhemoglobin ABG Potassium ABG Glucose Oxyhemoglobin 92.6 L Carboxyhemoglobin Sodium Potassium Chloride Carbon Dioxide BUN Creatinine Glucose POC Glucose Calcium Ferritin 1715.0 H Total Bilirubin Alkaline Phosphatase Lactate Dehydrogenase 303 H Total Creatine Kinase CK-MB (CK-2) Rel Index Troponin T C-Reactive Protein 26.10 H Total Protein Albumin Prealbumin LDL Cholesterol Direct HDL Cholesterol Arterial Blood Glucose Arterial Blood Ionized Calcium Urine WBC (Auto) 02/24/20 02/24/20 02/24/20 11:52 13:45 19:35 WBC RBC Hgb Hct MCV MCH RDW Plt Count Lymph % (Auto) [place] % (Auto) Eos % (Auto) Lymph # (Auto) [place] # (Auto) Eos # (Auto) Seg Neutrophils % Seg Neuts % (Manual) Lymphocytes % (Manual) Monocytes % (Manual) Basophils % (Manual) Seg Neutrophils # Seg Neutrophils # Man Lymphocytes # (Manual) Monocytes # (Manual) Eosinophils # (Manual) Basophils # (Manual) PT INR D-Dimer ABG pH 7.051 L* 7.300 L POC ABG pCO2 POC ABG pO2 ABG pO2 94.7 H 75.1 L ABG HCO3 18.0 L ABG O2 Saturation 93.5 L ABG Base Excess -6.8 L -7.8 L ABG Hemoglobin 13.2 L 11.9 L ABG Oxyhemoglobin ABG Potassium ABG Glucose Oxyhemoglobin 91.0 L 92.7 L Carboxyhemoglobin Sodium Potassium Chloride Carbon Dioxide BUN Creatinine Glucose POC Glucose Calcium Ferritin Total Bilirubin Alkaline Phosphatase Lactate Dehydrogenase Total Creatine Kinase CK-MB (CK-2) Rel Index Troponin T 0.034 H D C-Reactive Protein Total Protein Albumin Prealbumin LDL Cholesterol Direct HDL Cholesterol Arterial Blood Glucose Arterial Blood Ionized Calcium Urine WBC (Auto) 02/25/20 02/25/2020 04:00 04:00 12:26 WBC 22.9 H RBC Hgb Hct MCV 83 L MCH 27 L RDW Plt Count 468 H Lymph % (Auto) [place] % (Auto) Eos % (Auto) Lymph # (Auto) [place] # (Auto) Eos # (Auto) Seg Neutrophils % Seg Neuts % (Manual) 89.0 H Lymphocytes % (Manual) 7.0 L Monocytes % (Manual) Basophils % (Manual) Seg Neutrophils # Seg Neutrophils # Man 20.4 H Lymphocytes # (Manual) Monocytes # (Manual) Eosinophils # (Manual) Basophils # (Manual) PT INR D-Dimer ABG pH POC ABG pCO2 POC ABG pO2 ABG pO2 ABG HCO3 ABG O2 Saturation ABG Base Excess ABG Hemoglobin ABG Oxyhemoglobin ABG Potassium 2.6 L ABG Glucose 142 H Oxyhemoglobin Carboxyhemoglobin Sodium Potassium 3.2 L Chloride Carbon Dioxide 18 L BUN Creatinine 0.2 L Glucose 114 H POC Glucose Calcium Ferritin Total Bilirubin Alkaline Phosphatase Lactate Dehydrogenase Total Creatine Kinase CK-MB (CK-2) Rel Index Troponin T C-Reactive Protein Total Protein Albumin 3.5 L Prealbumin LDL Cholesterol Direct HDL Cholesterol Arterial Blood Glucose 142 H Arterial Blood Ionized Calcium Urine WBC (Auto) 02/26/20 02/26/20 02/26/20 15:58 17:00 23:43 WBC RBC Hgb Hct MCV MCH RDW Plt Count Lymph % (Auto) [place] % (Auto) Eos % (Auto) Lymph # (Auto) [place] # (Auto) Eos # (Auto) Seg Neutrophils % Seg Neuts % (Manual) Lymphocytes % (Manual) Monocytes % (Manual) Basophils % (Manual) Seg Neutrophils # Seg Neutrophils # Man Lymphocytes # (Manual) Monocytes # (Manual) Eosinophils # (Manual) Basophils # (Manual) PT INR D-Dimer ABG pH 7.502 H POC ABG pCO2 POC ABG pO2 213.6 H ABG pO2 ABG HCO3 ABG O2 Saturation ABG Base Excess ABG Hemoglobin ABG Oxyhemoglobin 99.2 H ABG Potassium 2.9 L ABG Glucose 160 H Oxyhemoglobin Carboxyhemoglobin 0.4 L Sodium Potassium Chloride Carbon Dioxide BUN Creatinine Glucose POC Glucose 189 H 120 H Calcium Ferritin Total Bilirubin Alkaline Phosphatase Lactate Dehydrogenase Total Creatine Kinase CK-MB (CK-2) Rel Index Troponin T C-Reactive Protein Total Protein Albumin Prealbumin LDL Cholesterol Direct HDL Cholesterol Arterial Blood Glucose 160 H Arterial Blood Ionized Calcium 4.5 L Urine WBC (Auto) 02/27/20 02/27/20 02/27/20 05:00 07:04 17:45 WBC RBC Hgb Hct MCV MCH RDW Plt Count Lymph % (Auto) [place] % (Auto) Eos % (Auto) Lymph # (Auto) [place] # (Auto) Eos # (Auto) Seg Neutrophils % Seg Neuts % (Manual) Lymphocytes % (Manual) Monocytes % (Manual) Basophils % (Manual) Seg Neutrophils # Seg Neutrophils # Man Lymphocytes # (Manual) Monocytes # (Manual) Eosinophils # (Manual) Basophils # (Manual) PT INR D-Dimer ABG pH 7.524 H POC ABG pCO2 POC ABG pO2 ABG pO2 ABG HCO3 ABG O2 Saturation ABG Base Excess ABG Hemoglobin ABG Oxyhemoglobin ABG Potassium 3.0 L ABG Glucose 143 H Oxyhemoglobin Carboxyhemoglobin Sodium Potassium Chloride Carbon Dioxide BUN Creatinine Glucose POC Glucose 154 H 175 H Calcium Ferritin Total Bilirubin Alkaline Phosphatase Lactate Dehydrogenase Total Creatine Kinase CK-MB (CK-2) Rel Index Troponin T C-Reactive Protein Total Protein Albumin Prealbumin LDL Cholesterol Direct HDL Cholesterol Arterial Blood Glucose 143 H Arterial Blood Ionized Calcium Urine WBC (Auto) 02/27/20 02/28/20 02/28/20 Unknown 00:21 04:15 WBC 18.7 H RBC Hgb Hct MCV MCH RDW Plt Count Lymph % (Auto) 8.7 L [place] % (Auto) Eos % (Auto) Lymph # (Auto) [place] # (Auto) 1.2 H Eos # (Auto) Seg Neutrophils % 84.6 H Seg Neuts % (Manual) Lymphocytes % (Manual) Monocytes % (Manual) Basophils % (Manual) Seg Neutrophils # 15.9 H Seg Neutrophils # Man Lymphocytes # (Manual) Monocytes # (Manual) Eosinophils # (Manual) Basophils # (Manual) PT INR D-Dimer ABG pH POC ABG pCO2 POC ABG pO2 ABG pO2 ABG HCO3 ABG O2 Saturation ABG Base Excess ABG Hemoglobin ABG Oxyhemoglobin ABG Potassium ABG Glucose Oxyhemoglobin Carboxyhemoglobin Sodium Potassium 2.9 L* Chloride Carbon Dioxide 33 H D BUN Creatinine < 0.2 L Glucose 157 H POC Glucose 134 H Calcium Ferritin Total Bilirubin Alkaline Phosphatase Lactate Dehydrogenase Total Creatine Kinase CK-MB (CK-2) Rel Index Troponin T C-Reactive Protein Total Protein Albumin Prealbumin LDL Cholesterol Direct HDL Cholesterol Arterial Blood Glucose Arterial Blood Ionized Calcium Urine WBC (Auto) 02/28/20 02/28/20 02/28/20 04:15 05:16 05:39 WBC RBC Hgb Hct MCV MCH RDW Plt Count Lymph % (Auto) [place] % (Auto) Eos % (Auto) Lymph # (Auto) [place] # (Auto) Eos # (Auto) Seg Neutrophils % Seg Neuts % (Manual) Lymphocytes % (Manual) Monocytes % (Manual) Basophils % (Manual) Seg Neutrophils # Seg Neutrophils # Man Lymphocytes # (Manual) Monocytes # (Manual) Eosinophils # (Manual) Basophils # (Manual) PT INR D-Dimer ABG pH POC ABG pCO2 POC ABG pO2 ABG pO2 142.9 H ABG HCO3 34.1 H ABG O2 Saturation ABG Base Excess 8.3 H ABG Hemoglobin ABG Oxyhemoglobin ABG Potassium ABG Glucose Oxyhemoglobin Carboxyhemoglobin Sodium 151 H Potassium Chloride Carbon Dioxide 32 H BUN Creatinine 0.2 L Glucose 167 H POC Glucose 138 H Calcium Ferritin Total Bilirubin Alkaline Phosphatase Lactate Dehydrogenase Total Creatine Kinase CK-MB (CK-2) Rel Index Troponin T C-Reactive Protein Total Protein Albumin Prealbumin LDL Cholesterol Direct HDL Cholesterol Arterial Blood Glucose Arterial Blood Ionized Calcium Urine WBC (Auto) 02/28/20 02/28/20 02/28/20 11:05 11:33 12:54 WBC RBC Hgb Hct MCV MCH RDW Plt Count Lymph % (Auto) [place] % (Auto) Eos % (Auto) Lymph # (Auto) [place] # (Auto) Eos # (Auto) Seg Neutrophils % Seg Neuts % (Manual) Lymphocytes % (Manual) Monocytes % (Manual) Basophils % (Manual) Seg Neutrophils # Seg Neutrophils # Man Lymphocytes # (Manual) Monocytes # (Manual) Eosinophils # (Manual) Basophils # (Manual) PT INR D-Dimer ABG pH POC ABG pCO2 POC ABG pO2 ABG pO2 ABG HCO3 ABG O2 Saturation ABG Base Excess ABG Hemoglobin ABG Oxyhemoglobin ABG Potassium ABG Glucose Oxyhemoglobin Carboxyhemoglobin Sodium Potassium Chloride Carbon Dioxide BUN Creatinine Glucose POC Glucose 160 H Calcium Ferritin Total Bilirubin Alkaline Phosphatase Lactate Dehydrogenase Total Creatine Kinase CK-MB (CK-2) Rel Index Troponin T C-Reactive Protein 4.70 H Total Protein Albumin Prealbumin 0.090 L LDL Cholesterol Direct HDL Cholesterol Arterial Blood Glucose Arterial Blood Ionized Calcium Urine WBC (Auto) 02/28/20 02/29/20 02/29/20 17:34 00:44 04:05 WBC 19.6 H RBC Hgb Hct MCV MCH 27 L RDW 15.4 H Plt Count Lymph % (Auto) [place] % (Auto) Eos % (Auto) Lymph # (Auto) [place] # (Auto) Eos # (Auto) Seg Neutrophils % Seg Neuts % (Manual) 86.0 H Lymphocytes % (Manual) 7.0 L Monocytes % (Manual) Basophils % (Manual) Seg Neutrophils # Seg Neutrophils # Man 16.9 H Lymphocytes # (Manual) Monocytes # (Manual) 1.2 H Eosinophils # (Manual) Basophils # (Manual) PT INR D-Dimer ABG pH POC ABG pCO2 POC ABG pO2 ABG pO2 ABG HCO3 ABG O2 Saturation ABG Base Excess ABG Hemoglobin ABG Oxyhemoglobin ABG Potassium ABG Glucose Oxyhemoglobin Carboxyhemoglobin Sodium Potassium Chloride Carbon Dioxide BUN Creatinine Glucose POC Glucose 136 H 156 H Calcium Ferritin Total Bilirubin Alkaline Phosphatase Lactate Dehydrogenase Total Creatine Kinase CK-MB (CK-2) Rel Index Troponin T C-Reactive Protein Total Protein Albumin Prealbumin LDL Cholesterol Direct HDL Cholesterol Arterial Blood Glucose Arterial Blood Ionized Calcium Urine WBC (Auto) 02/29/20 02/29/20 02/29/20 04:05 05:14 05:33 WBC RBC Hgb Hct MCV MCH RDW Plt Count Lymph % (Auto) [place] % (Auto) Eos % (Auto) Lymph # (Auto) [place] # (Auto) Eos # (Auto) Seg Neutrophils % Seg Neuts % (Manual) Lymphocytes % (Manual) Monocytes % (Manual) Basophils % (Manual) Seg Neutrophils # Seg Neutrophils # Man Lymphocytes # (Manual) Monocytes # (Manual) Eosinophils # (Manual) Basophils # (Manual) PT INR D-Dimer ABG pH POC ABG pCO2 54.3 H POC ABG pO2 124.8 H ABG pO2 ABG HCO3 ABG O2 Saturation ABG Base Excess ABG Hemoglobin ABG Oxyhemoglobin ABG Potassium ABG Glucose 185 H Oxyhemoglobin Carboxyhemoglobin Sodium 148 H Potassium Chloride Carbon Dioxide 33 H BUN Creatinine < 0.2 L Glucose 173 H POC Glucose 152 H Calcium Ferritin Total Bilirubin Alkaline Phosphatase Lactate Dehydrogenase Total Creatine Kinase CK-MB (CK-2) Rel Index Troponin T C-Reactive Protein Total Protein Albumin Prealbumin LDL Cholesterol Direct HDL Cholesterol Arterial Blood Glucose 185 H Arterial Blood Ionized Calcium Urine WBC (Auto) 03/01/20 03/01/20 03/01/20 00:00 03:45 04:33 WBC 23.1 H RBC Hgb Hct MCV MCH 27 L RDW 15.3 H Plt Count Lymph % (Auto) [place] % (Auto) Eos % (Auto) Lymph # (Auto) [place] # (Auto) Eos # (Auto) Seg Neutrophils % Seg Neuts % (Manual) 92.0 H Lymphocytes % (Manual) 6.0 L Monocytes % (Manual) Basophils % (Manual) Seg Neutrophils # Seg Neutrophils # Man 21.3 H Lymphocytes # (Manual) Monocytes # (Manual) Eosinophils # (Manual) 0.5 H Basophils # (Manual) PT INR D-Dimer ABG pH 7.492 H POC ABG pCO2 POC ABG pO2 ABG pO2 157.1 H ABG HCO3 32.3 H ABG O2 Saturation ABG Base Excess 8.1 H ABG Hemoglobin 13.2 L ABG Oxyhemoglobin ABG Potassium ABG Glucose Oxyhemoglobin Carboxyhemoglobin Sodium Potassium Chloride Carbon Dioxide BUN Creatinine Glucose POC Glucose 109 H Calcium Ferritin Total Bilirubin Alkaline Phosphatase Lactate Dehydrogenase Total Creatine Kinase CK-MB (CK-2) Rel Index Troponin T C-Reactive Protein Total Protein Albumin Prealbumin LDL Cholesterol Direct HDL Cholesterol Arterial Blood Glucose Arterial Blood Ionized Calcium Urine WBC (Auto) 03/01/20 03/01/20 03/01/20 04:33 05:29 12:32 WBC RBC Hgb Hct MCV MCH RDW Plt Count Lymph % (Auto) [place] % (Auto) Eos % (Auto) Lymph # (Auto) [place] # (Auto) Eos # (Auto) Seg Neutrophils % Seg Neuts % (Manual) Lymphocytes % (Manual) Monocytes % (Manual) Basophils % (Manual) Seg Neutrophils # Seg Neutrophils # Man Lymphocytes # (Manual) Monocytes # (Manual) Eosinophils # (Manual) Basophils # (Manual) PT INR D-Dimer ABG pH POC ABG pCO2 POC ABG pO2 ABG pO2 ABG HCO3 ABG O2 Saturation ABG Base Excess ABG Hemoglobin ABG Oxyhemoglobin ABG Potassium ABG Glucose Oxyhemoglobin Carboxyhemoglobin Sodium 146 H Potassium Chloride Carbon Dioxide 32 H BUN Creatinine < 0.2 L Glucose 120 H POC Glucose 120 H 128 H Calcium Ferritin Total Bilirubin Alkaline Phosphatase Lactate Dehydrogenase Total Creatine Kinase CK-MB (CK-2) Rel Index Troponin T C-Reactive Protein Total Protein Albumin Prealbumin LDL Cholesterol Direct HDL Cholesterol Arterial Blood Glucose Arterial Blood Ionized Calcium Urine WBC (Auto) 03/01/20 03/01/20 03/02/20 17:38 23:46 06:13 WBC RBC Hgb Hct MCV MCH RDW Plt Count Lymph % (Auto) [place] % (Auto) Eos % (Auto) Lymph # (Auto) [place] # (Auto) Eos # (Auto) Seg Neutrophils % Seg Neuts % (Manual) Lymphocytes % (Manual) Monocytes % (Manual) Basophils % (Manual) Seg Neutrophils # Seg Neutrophils # Man Lymphocytes # (Manual) Monocytes # (Manual) Eosinophils # (Manual) Basophils # (Manual) PT INR D-Dimer ABG pH POC ABG pCO2 POC ABG pO2 ABG pO2 ABG HCO3 ABG O2 Saturation ABG Base Excess ABG Hemoglobin ABG Oxyhemoglobin ABG Potassium ABG Glucose Oxyhemoglobin Carboxyhemoglobin Sodium Potassium Chloride Carbon Dioxide BUN Creatinine Glucose POC Glucose 114 H 121 H 120 H Calcium Ferritin Total Bilirubin Alkaline Phosphatase Lactate Dehydrogenase Total Creatine Kinase CK-MB (CK-2) Rel Index Troponin T C-Reactive Protein Total Protein Albumin Prealbumin LDL Cholesterol Direct HDL Cholesterol Arterial Blood Glucose Arterial Blood Ionized Calcium Urine WBC (Auto) 03/02/20 03/02/20 03/03/20 09:47 09:47 10:21 WBC 23.6 H RBC Hgb Hct MCV MCH RDW 15.3 H Plt Count 494 H Lymph % (Auto) [place] % (Auto) Eos % (Auto) Lymph # (Auto) [place] # (Auto) Eos # (Auto) Seg Neutrophils % Seg Neuts % (Manual) 85.0 H Lymphocytes % (Manual) 6.0 L Monocytes % (Manual) Basophils % (Manual) Seg Neutrophils # Seg Neutrophils # Man 20.1 H Lymphocytes # (Manual) Monocytes # (Manual) 1.7 H Eosinophils # (Manual) Basophils # (Manual) PT INR D-Dimer ABG pH POC ABG pCO2 POC ABG pO2 ABG pO2 ABG HCO3 ABG O2 Saturation ABG Base Excess ABG Hemoglobin ABG Oxyhemoglobin ABG Potassium 3.3 L ABG Glucose 158 H Oxyhemoglobin Carboxyhemoglobin Sodium Potassium Chloride Carbon Dioxide BUN Creatinine < 0.2 L Glucose 177 H POC Glucose Calcium Ferritin Total Bilirubin Alkaline Phosphatase Lactate Dehydrogenase Total Creatine Kinase CK-MB (CK-2) Rel Index Troponin T C-Reactive Protein Total Protein Albumin Prealbumin LDL Cholesterol Direct HDL Cholesterol Arterial Blood Glucose 158 H Arterial Blood Ionized Calcium Urine WBC (Auto) 03/03/20 03/04/20 03/04/20 21:30 00:00 12:23 WBC RBC Hgb Hct MCV MCH RDW Plt Count Lymph % (Auto) [place] % (Auto) Eos % (Auto) Lymph # (Auto) [place] # (Auto) Eos # (Auto) Seg Neutrophils % Seg Neuts % (Manual) Lymphocytes % (Manual) Monocytes % (Manual) Basophils % (Manual) Seg Neutrophils # Seg Neutrophils # Man Lymphocytes # (Manual) Monocytes # (Manual) Eosinophils # (Manual) Basophils # (Manual) PT INR D-Dimer ABG pH 7.328 L POC ABG pCO2 POC ABG pO2 ABG pO2 68.4 L ABG HCO3 35.0 H ABG O2 Saturation 93.9 L ABG Base Excess 6.8 H ABG Hemoglobin 12.7 L ABG Oxyhemoglobin ABG Potassium ABG Glucose Oxyhemoglobin 91.9 L Carboxyhemoglobin Sodium Potassium Chloride Carbon Dioxide BUN Creatinine Glucose POC Glucose 187 H 163 H Calcium Ferritin Total Bilirubin Alkaline Phosphatase Lactate Dehydrogenase Total Creatine Kinase CK-MB (CK-2) Rel Index Troponin T C-Reactive Protein Total Protein Albumin Prealbumin LDL Cholesterol Direct HDL Cholesterol Arterial Blood Glucose Arterial Blood Ionized Calcium Urine WBC (Auto) 03/04/20 03/04/20 03/05/20 18:15 21:30 06:02 WBC RBC Hgb Hct MCV MCH RDW Plt Count Lymph % (Auto) [place] % (Auto) Eos % (Auto) Lymph # (Auto) [place] # (Auto) Eos # (Auto) Seg Neutrophils % Seg Neuts % (Manual) Lymphocytes % (Manual) Monocytes % (Manual) Basophils % (Manual) Seg Neutrophils # Seg Neutrophils # Man Lymphocytes # (Manual) Monocytes # (Manual) Eosinophils # (Manual) Basophils # (Manual) PT INR D-Dimer ABG pH 7.297 L POC ABG pCO2 POC ABG pO2 ABG pO2 ABG HCO3 41.0 H ABG O2 Saturation ABG Base Excess 11.0 H ABG Hemoglobin 13.1 L ABG Oxyhemoglobin ABG Potassium ABG Glucose Oxyhemoglobin 94.5 L Carboxyhemoglobin Sodium Potassium Chloride Carbon Dioxide BUN Creatinine Glucose POC Glucose 192 H 127 H Calcium Ferritin Total Bilirubin Alkaline Phosphatase Lactate Dehydrogenase Total Creatine Kinase CK-MB (CK-2) Rel Index Troponin T C-Reactive Protein Total Protein Albumin Prealbumin LDL Cholesterol Direct HDL Cholesterol Arterial Blood Glucose Arterial Blood Ionized Calcium Urine WBC (Auto) 03/05/20 03/05/20 03/06/20 12:09 16:42 00:24 WBC RBC Hgb Hct MCV MCH RDW Plt Count Lymph % (Auto) [place] % (Auto) Eos % (Auto) Lymph # (Auto) [place] # (Auto) Eos # (Auto) Seg Neutrophils % Seg Neuts % (Manual) Lymphocytes % (Manual) Monocytes % (Manual) Basophils % (Manual) Seg Neutrophils # Seg Neutrophils # Man Lymphocytes # (Manual) Monocytes # (Manual) Eosinophils # (Manual) Basophils # (Manual) PT INR D-Dimer ABG pH POC ABG pCO2 POC ABG pO2 ABG pO2 ABG HCO3 ABG O2 Saturation ABG Base Excess ABG Hemoglobin ABG Oxyhemoglobin ABG Potassium ABG Glucose Oxyhemoglobin Carboxyhemoglobin Sodium Potassium Chloride Carbon Dioxide BUN Creatinine Glucose POC Glucose 147 H 114 H 134 H Calcium Ferritin Total Bilirubin Alkaline Phosphatase Lactate Dehydrogenase Total Creatine Kinase CK-MB (CK-2) Rel Index Troponin T C-Reactive Protein Total Protein Albumin Prealbumin LDL Cholesterol Direct HDL Cholesterol Arterial Blood Glucose Arterial Blood Ionized Calcium Urine WBC (Auto) 03/06/20 03/06/20 03/06/20 04:34 05:53 06:08 WBC 25.4 H RBC Hgb 10.5 L Hct 32.7 L MCV MCH 27 L RDW 15.3 H Plt Count 634 H Lymph % (Auto) [place] % (Auto) Eos % (Auto) Lymph # (Auto) [place] # (Auto) Eos # (Auto) Seg Neutrophils % Seg Neuts % (Manual) 88.0 H Lymphocytes % (Manual) 2.0 L Monocytes % (Manual) 8.0 H Basophils % (Manual) Seg Neutrophils # Seg Neutrophils # Man 22.4 H Lymphocytes # (Manual) 0.5 L Monocytes # (Manual) 2.0 H Eosinophils # (Manual) Basophils # (Manual) PT INR D-Dimer ABG pH POC ABG pCO2 POC ABG pO2 ABG pO2 ABG HCO3 37.9 H ABG O2 Saturation ABG Base Excess 11.4 H ABG Hemoglobin 10.6 L ABG Oxyhemoglobin ABG Potassium ABG Glucose Oxyhemoglobin 94.7 L Carboxyhemoglobin Sodium Potassium Chloride Carbon Dioxide BUN Creatinine Glucose POC Glucose 135 H Calcium Ferritin Total Bilirubin Alkaline Phosphatase Lactate Dehydrogenase Total Creatine Kinase CK-MB (CK-2) Rel Index Troponin T C-Reactive Protein Total Protein Albumin Prealbumin LDL Cholesterol Direct HDL Cholesterol Arterial Blood Glucose Arterial Blood Ionized Calcium Urine WBC (Auto) 03/06/20 03/06/20 03/06/20 06:08 12:19 19:10 WBC RBC Hgb Hct MCV MCH RDW Plt Count Lymph % (Auto) [place] % (Auto) Eos % (Auto) Lymph # (Auto) [place] # (Auto) Eos # (Auto) Seg Neutrophils % Seg Neuts % (Manual) Lymphocytes % (Manual) Monocytes % (Manual) Basophils % (Manual) Seg Neutrophils # Seg Neutrophils # Man Lymphocytes # (Manual) Monocytes # (Manual) Eosinophils # (Manual) Basophils # (Manual) PT INR D-Dimer ABG pH POC ABG pCO2 POC ABG pO2 ABG pO2 ABG HCO3 ABG O2 Saturation ABG Base Excess ABG Hemoglobin ABG Oxyhemoglobin ABG Potassium ABG Glucose Oxyhemoglobin Carboxyhemoglobin Sodium 150 H D Potassium Chloride Carbon Dioxide 39 H D BUN 23 H Creatinine < 0.2 L Glucose 144 H POC Glucose 169 H 152 H Calcium Ferritin Total Bilirubin Alkaline Phosphatase Lactate Dehydrogenase Total Creatine Kinase CK-MB (CK-2) Rel Index Troponin T C-Reactive Protein Total Protein Albumin 3.3 L Prealbumin LDL Cholesterol Direct HDL Cholesterol Arterial Blood Glucose Arterial Blood Ionized Calcium Urine WBC (Auto) 03/06/20 03/07/20 03/07/20 23:58 04:25 04:25 WBC 22.1 H RBC Hgb 10.9 L Hct 32.9 L MCV MCH RDW 15.5 H Plt Count 739 H Lymph % (Auto) 7.8 L [place] % (Auto) Eos % (Auto) Lymph # (Auto) [place] # (Auto) 1.3 H Eos # (Auto) Seg Neutrophils % 85.5 H Seg Neuts % (Manual) Lymphocytes % (Manual) Monocytes % (Manual) Basophils % (Manual) Seg Neutrophils # 18.9 H Seg Neutrophils # Man Lymphocytes # (Manual) Monocytes # (Manual) Eosinophils # (Manual) Basophils # (Manual) PT INR D-Dimer ABG pH POC ABG pCO2 POC ABG pO2 ABG pO2 ABG HCO3 ABG O2 Saturation ABG Base Excess ABG Hemoglobin ABG Oxyhemoglobin ABG Potassium ABG Glucose Oxyhemoglobin Carboxyhemoglobin Sodium 146 H Potassium Chloride Carbon Dioxide 37 H BUN Creatinine < 0.2 L Glucose 118 H POC Glucose 111 H Calcium Ferritin Total Bilirubin Alkaline Phosphatase Lactate Dehydrogenase Total Creatine Kinase CK-MB (CK-2) Rel Index Troponin T C-Reactive Protein Total Protein Albumin 3.7 L Prealbumin LDL Cholesterol Direct HDL Cholesterol Arterial Blood Glucose Arterial Blood Ionized Calcium Urine WBC (Auto) 03/07/20 03/07/20 03/07/20 05:20 17:45 23:32 WBC RBC Hgb Hct MCV MCH RDW Plt Count Lymph % (Auto) [place] % (Auto) Eos % (Auto) Lymph # (Auto) [place] # (Auto) Eos # (Auto) Seg Neutrophils % Seg Neuts % (Manual) Lymphocytes % (Manual) Monocytes % (Manual) Basophils % (Manual) Seg Neutrophils # Seg Neutrophils # Man Lymphocytes # (Manual) Monocytes # (Manual) Eosinophils # (Manual) Basophils # (Manual) PT INR D-Dimer ABG pH POC ABG pCO2 POC ABG pO2 ABG pO2 ABG HCO3 ABG O2 Saturation ABG Base Excess ABG Hemoglobin ABG Oxyhemoglobin ABG Potassium ABG Glucose Oxyhemoglobin Carboxyhemoglobin Sodium Potassium Chloride Carbon Dioxide BUN Creatinine Glucose POC Glucose 113 H 124 H 210 H Calcium Ferritin Total Bilirubin Alkaline Phosphatase Lactate Dehydrogenase Total Creatine Kinase CK-MB (CK-2) Rel Index Troponin T C-Reactive Protein Total Protein Albumin Prealbumin LDL Cholesterol Direct HDL Cholesterol Arterial Blood Glucose Arterial Blood Ionized Calcium Urine WBC (Auto) 03/08/20 03/08/20 03/08/20 05:35 06:43 06:43 WBC 28.9 H RBC 3.53 L Hgb 9.7 L Hct 30.3 L MCV MCH RDW 15.6 H Plt Count 578 H Lymph % (Auto) [place] % (Auto) Eos % (Auto) Lymph # (Auto) [place] # (Auto) Eos # (Auto) Seg Neutrophils % Seg Neuts % (Manual) 93.0 H Lymphocytes % (Manual) 4.0 L Monocytes % (Manual) Basophils % (Manual) Seg Neutrophils # Seg Neutrophils # Man 26.9 H Lymphocytes # (Manual) Monocytes # (Manual) Eosinophils # (Manual) Basophils # (Manual) PT INR D-Dimer ABG pH POC ABG pCO2 POC ABG pO2 ABG pO2 ABG HCO3 ABG O2 Saturation ABG Base Excess ABG Hemoglobin ABG Oxyhemoglobin ABG Potassium ABG Glucose Oxyhemoglobin Carboxyhemoglobin Sodium 146 H Potassium Chloride Carbon Dioxide 35 H BUN 34 H Creatinine 0.3 L D Glucose 125 H POC Glucose 147 H Calcium Ferritin Total Bilirubin Alkaline Phosphatase Lactate Dehydrogenase Total Creatine Kinase CK-MB (CK-2) Rel Index Troponin T C-Reactive Protein Total Protein 5.9 L Albumin 3.2 L Prealbumin LDL Cholesterol Direct HDL Cholesterol Arterial Blood Glucose Arterial Blood Ionized Calcium Urine WBC (Auto) 03/08/20 03/08/20 03/08/20 08:57 11:14 12:34 WBC RBC Hgb Hct MCV MCH RDW Plt Count Lymph % (Auto) [place] % (Auto) Eos % (Auto) Lymph # (Auto) [place] # (Auto) Eos # (Auto) Seg Neutrophils % Seg Neuts % (Manual) Lymphocytes % (Manual) Monocytes % (Manual) Basophils % (Manual) Seg Neutrophils # Seg Neutrophils # Man Lymphocytes # (Manual) Monocytes # (Manual) Eosinophils # (Manual) Basophils # (Manual) PT INR D-Dimer ABG pH POC ABG pCO2 63.1 H POC ABG pO2 ABG pO2 ABG HCO3 ABG O2 Saturation ABG Base Excess ABG Hemoglobin 10.9 L ABG Oxyhemoglobin ABG Potassium ABG Glucose 176 H Oxyhemoglobin Carboxyhemoglobin Sodium Potassium Chloride Carbon Dioxide BUN Creatinine Glucose POC Glucose 171 H Calcium Ferritin Total Bilirubin Alkaline Phosphatase Lactate Dehydrogenase Total Creatine Kinase CK-MB (CK-2) Rel Index Troponin T C-Reactive Protein Total Protein Albumin Prealbumin LDL Cholesterol Direct HDL Cholesterol Arterial Blood Glucose 176 H Arterial Blood Ionized Calcium 4.5 L Urine WBC (Auto) 10.0 H 03/08/20 03/08/20 03/09/20 18:02 23:43 05:49 WBC RBC Hgb Hct MCV MCH RDW Plt Count Lymph % (Auto) [place] % (Auto) Eos % (Auto) Lymph # (Auto) [place] # (Auto) Eos # (Auto) Seg Neutrophils % Seg Neuts % (Manual) Lymphocytes % (Manual) Monocytes % (Manual) Basophils % (Manual) Seg Neutrophils # Seg Neutrophils # Man Lymphocytes # (Manual) Monocytes # (Manual) Eosinophils # (Manual) Basophils # (Manual) PT INR D-Dimer ABG pH POC ABG pCO2 POC ABG pO2 ABG pO2 ABG HCO3 ABG O2 Saturation ABG Base Excess ABG Hemoglobin ABG Oxyhemoglobin ABG Potassium ABG Glucose Oxyhemoglobin Carboxyhemoglobin Sodium Potassium Chloride Carbon Dioxide BUN Creatinine Glucose POC Glucose 157 H 134 H 163 H Calcium Ferritin Total Bilirubin Alkaline Phosphatase Lactate Dehydrogenase Total Creatine Kinase CK-MB (CK-2) Rel Index Troponin T C-Reactive Protein Total Protein Albumin Prealbumin LDL Cholesterol Direct HDL Cholesterol Arterial Blood Glucose Arterial Blood Ionized Calcium Urine WBC (Auto) 03/09/20 03/09/20 03/09/20 08:35 08:35 12:11 WBC 23.4 H RBC 3.36 L Hgb 9.3 L Hct 28.8 L MCV MCH RDW 15.9 H Plt Count 521 H Lymph % (Auto) [place] % (Auto) Eos % (Auto) Lymph # (Auto) [place] # (Auto) Eos # (Auto) Seg Neutrophils % Seg Neuts % (Manual) 87.0 H Lymphocytes % (Manual) 4.0 L Monocytes % (Manual) 9.0 H Basophils % (Manual) Seg Neutrophils # Seg Neutrophils # Man 20.4 H Lymphocytes # (Manual) 0.9 L Monocytes # (Manual) 2.1 H Eosinophils # (Manual) Basophils # (Manual) PT INR D-Dimer ABG pH POC ABG pCO2 POC ABG pO2 ABG pO2 ABG HCO3 ABG O2 Saturation ABG Base Excess ABG Hemoglobin ABG Oxyhemoglobin ABG Potassium ABG Glucose Oxyhemoglobin Carboxyhemoglobin Sodium 147 H Potassium Chloride Carbon Dioxide 37 H BUN 63 H Creatinine Glucose 154 H POC Glucose 128 H Calcium Ferritin Total Bilirubin Alkaline Phosphatase Lactate Dehydrogenase Total Creatine Kinase CK-MB (CK-2) Rel Index Troponin T C-Reactive Protein Total Protein Albumin Prealbumin LDL Cholesterol Direct HDL Cholesterol Arterial Blood Glucose Arterial Blood Ionized Calcium Urine WBC (Auto) 03/09/20 03/10/20 03/10/20 17:51 00:25 05:41 WBC RBC Hgb Hct MCV MCH RDW Plt Count Lymph % (Auto) [place] % (Auto) Eos % (Auto) Lymph # (Auto) [place] # (Auto) Eos # (Auto) Seg Neutrophils % Seg Neuts % (Manual) Lymphocytes % (Manual) Monocytes % (Manual) Basophils % (Manual) Seg Neutrophils # Seg Neutrophils # Man Lymphocytes # (Manual) Monocytes # (Manual) Eosinophils # (Manual) Basophils # (Manual) PT INR D-Dimer ABG pH POC ABG pCO2 POC ABG pO2 ABG pO2 ABG HCO3 ABG O2 Saturation ABG Base Excess ABG Hemoglobin ABG Oxyhemoglobin ABG Potassium ABG Glucose Oxyhemoglobin Carboxyhemoglobin Sodium Potassium Chloride Carbon Dioxide BUN Creatinine Glucose POC Glucose 127 H 128 H 153 H Calcium Ferritin Total Bilirubin Alkaline Phosphatase Lactate Dehydrogenase Total Creatine Kinase CK-MB (CK-2) Rel Index Troponin T C-Reactive Protein Total Protein Albumin Prealbumin LDL Cholesterol Direct HDL Cholesterol Arterial Blood Glucose Arterial Blood Ionized Calcium Urine WBC (Auto) 03/10/20 03/10/20 03/10/20 06:14 06:14 12:02 WBC 18.3 H RBC 3.45 L Hgb 9.5 L Hct 29.5 L MCV MCH RDW 16.1 H Plt Count 494 H Lymph % (Auto) [place] % (Auto) Eos % (Auto) Lymph # (Auto) [place] # (Auto) Eos # (Auto) Seg Neutrophils % Seg Neuts % (Manual) 95.0 H Lymphocytes % (Manual) 1.0 L Monocytes % (Manual) Basophils % (Manual) Seg Neutrophils # Seg Neutrophils # Man 17.4 H Lymphocytes # (Manual) 0.2 L Monocytes # (Manual) Eosinophils # (Manual) Basophils # (Manual) PT INR D-Dimer ABG pH POC ABG pCO2 POC ABG pO2 ABG pO2 ABG HCO3 ABG O2 Saturation ABG Base Excess ABG Hemoglobin ABG Oxyhemoglobin ABG Potassium ABG Glucose Oxyhemoglobin Carboxyhemoglobin Sodium 149 H Potassium Chloride Carbon Dioxide 35 H BUN 34 H Creatinine 0.2 L D Glucose 177 H POC Glucose 151 H Calcium Ferritin Total Bilirubin Alkaline Phosphatase Lactate Dehydrogenase Total Creatine Kinase CK-MB (CK-2) Rel Index Troponin T C-Reactive Protein Total Protein Albumin Prealbumin LDL Cholesterol Direct HDL Cholesterol Arterial Blood Glucose Arterial Blood Ionized Calcium Urine WBC (Auto) 03/10/20 03/10/20 03/11/20 17:41 23:53 05:02 WBC RBC Hgb Hct MCV MCH RDW Plt Count Lymph % (Auto) [place] % (Auto) Eos % (Auto) Lymph # (Auto) [place] # (Auto) Eos # (Auto) Seg Neutrophils % Seg Neuts % (Manual) Lymphocytes % (Manual) Monocytes % (Manual) Basophils % (Manual) Seg Neutrophils # Seg Neutrophils # Man Lymphocytes # (Manual) Monocytes # (Manual) Eosinophils # (Manual) Basophils # (Manual) PT INR D-Dimer ABG pH POC ABG pCO2 POC ABG pO2 ABG pO2 ABG HCO3 ABG O2 Saturation ABG Base Excess ABG Hemoglobin ABG Oxyhemoglobin ABG Potassium ABG Glucose Oxyhemoglobin Carboxyhemoglobin Sodium Potassium Chloride Carbon Dioxide BUN Creatinine Glucose POC Glucose 168 H 142 H 146 H Calcium Ferritin Total Bilirubin Alkaline Phosphatase Lactate Dehydrogenase Total Creatine Kinase CK-MB (CK-2) Rel Index Troponin T C-Reactive Protein Total Protein Albumin Prealbumin LDL Cholesterol Direct HDL Cholesterol Arterial Blood Glucose Arterial Blood Ionized Calcium Urine WBC (Auto) 03/11/20 03/11/20 03/11/20 11:30 14:01 14:01 WBC 19.7 H RBC 3.04 L Hgb 8.7 L Hct 25.8 L MCV MCH RDW 15.6 H Plt Count Lymph % (Auto) [place] % (Auto) Eos % (Auto) Lymph # (Auto) [place] # (Auto) Eos # (Auto) Seg Neutrophils % Seg Neuts % (Manual) Lymphocytes % (Manual) Monocytes % (Manual) Basophils % (Manual) Seg Neutrophils # Seg Neutrophils # Man Lymphocytes # (Manual) Monocytes # (Manual) Eosinophils # (Manual) Basophils # (Manual) PT INR D-Dimer ABG pH POC ABG pCO2 POC ABG pO2 ABG pO2 ABG HCO3 ABG O2 Saturation ABG Base Excess ABG Hemoglobin ABG Oxyhemoglobin ABG Potassium ABG Glucose Oxyhemoglobin Carboxyhemoglobin Sodium 151 H Potassium Chloride Carbon Dioxide 37 H BUN Creatinine < 0.2 L Glucose 171 H POC Glucose 248 H Calcium Ferritin Total Bilirubin Alkaline Phosphatase Lactate Dehydrogenase Total Creatine Kinase CK-MB (CK-2) Rel Index Troponin T C-Reactive Protein Total Protein Albumin Prealbumin LDL Cholesterol Direct HDL Cholesterol Arterial Blood Glucose Arterial Blood Ionized Calcium Urine WBC (Auto) 03/11/20 03/11/20 03/12/20 17:09 23:52 04:39 WBC 19.9 H RBC 3.16 L Hgb 8.9 L Hct 27.5 L MCV MCH RDW 15.7 H Plt Count Lymph % (Auto) 6.8 L [place] % (Auto) Eos % (Auto) Lymph # (Auto) [place] # (Auto) 1.2 H Eos # (Auto) Seg Neutrophils % 86.0 H Seg Neuts % (Manual) Lymphocytes % (Manual) Monocytes % (Manual) Basophils % (Manual) Seg Neutrophils # 17.1 H Seg Neutrophils # Man Lymphocytes # (Manual) Monocytes # (Manual) Eosinophils # (Manual) Basophils # (Manual) PT INR D-Dimer ABG pH POC ABG pCO2 POC ABG pO2 ABG pO2 ABG HCO3 ABG O2 Saturation ABG Base Excess ABG Hemoglobin ABG Oxyhemoglobin ABG Potassium ABG Glucose Oxyhemoglobin Carboxyhemoglobin Sodium Potassium Chloride Carbon Dioxide BUN Creatinine Glucose POC Glucose 124 H 131 H Calcium Ferritin Total Bilirubin Alkaline Phosphatase Lactate Dehydrogenase Total Creatine Kinase CK-MB (CK-2) Rel Index Troponin T C-Reactive Protein Total Protein Albumin Prealbumin LDL Cholesterol Direct HDL Cholesterol Arterial Blood Glucose Arterial Blood Ionized Calcium Urine WBC (Auto) 03/12/20 03/12/20 03/12/20 04:39 05:28 11:34 WBC RBC Hgb Hct MCV MCH RDW Plt Count Lymph % (Auto) [place] % (Auto) Eos % (Auto) Lymph # (Auto) [place] # (Auto) Eos # (Auto) Seg Neutrophils % Seg Neuts % (Manual) Lymphocytes % (Manual) Monocytes % (Manual) Basophils % (Manual) Seg Neutrophils # Seg Neutrophils # Man Lymphocytes # (Manual) Monocytes # (Manual) Eosinophils # (Manual) Basophils # (Manual) PT INR D-Dimer ABG pH POC ABG pCO2 POC ABG pO2 ABG pO2 ABG HCO3 ABG O2 Saturation ABG Base Excess ABG Hemoglobin ABG Oxyhemoglobin ABG Potassium ABG Glucose Oxyhemoglobin Carboxyhemoglobin Sodium 147 H Potassium Chloride Carbon Dioxide 40 H BUN Creatinine < 0.2 L Glucose 175 H POC Glucose 167 H 144 H Calcium Ferritin Total Bilirubin Alkaline Phosphatase Lactate Dehydrogenase Total Creatine Kinase CK-MB (CK-2) Rel Index Troponin T C-Reactive Protein Total Protein Albumin Prealbumin LDL Cholesterol Direct HDL Cholesterol Arterial Blood Glucose Arterial Blood Ionized Calcium Urine WBC (Auto) 03/12/20 03/12/20 03/13/20 17:32 23:57 05:57 WBC RBC Hgb Hct MCV MCH RDW Plt Count Lymph % (Auto) [place] % (Auto) Eos % (Auto) Lymph # (Auto) [place] # (Auto) Eos # (Auto) Seg Neutrophils % Seg Neuts % (Manual) Lymphocytes % (Manual) Monocytes % (Manual) Basophils % (Manual) Seg Neutrophils # Seg Neutrophils # Man Lymphocytes # (Manual) Monocytes # (Manual) Eosinophils # (Manual) Basophils # (Manual) PT INR D-Dimer ABG pH POC ABG pCO2 POC ABG pO2 ABG pO2 ABG HCO3 ABG O2 Saturation ABG Base Excess ABG Hemoglobin ABG Oxyhemoglobin ABG Potassium ABG Glucose Oxyhemoglobin Carboxyhemoglobin Sodium Potassium Chloride Carbon Dioxide BUN Creatinine Glucose POC Glucose 141 H 137 H 161 H Calcium Ferritin Total Bilirubin Alkaline Phosphatase Lactate Dehydrogenase Total Creatine Kinase CK-MB (CK-2) Rel Index Troponin T C-Reactive Protein Total Protein Albumin Prealbumin LDL Cholesterol Direct HDL Cholesterol Arterial Blood Glucose Arterial Blood Ionized Calcium Urine WBC (Auto) 03/13/20 03/13/20 03/13/20 12:28 14:14 18:39 WBC RBC Hgb Hct MCV MCH RDW Plt Count Lymph % (Auto) [place] % (Auto) Eos % (Auto) Lymph # (Auto) [place] # (Auto) Eos # (Auto) Seg Neutrophils % Seg Neuts % (Manual) Lymphocytes % (Manual) Monocytes % (Manual) Basophils % (Manual) Seg Neutrophils # Seg Neutrophils # Man Lymphocytes # (Manual) Monocytes # (Manual) Eosinophils # (Manual) Basophils # (Manual) PT INR D-Dimer ABG pH POC ABG pCO2 POC ABG pO2 ABG pO2 ABG HCO3 ABG O2 Saturation ABG Base Excess ABG Hemoglobin ABG Oxyhemoglobin ABG Potassium ABG Glucose Oxyhemoglobin Carboxyhemoglobin Sodium Potassium Chloride Carbon Dioxide 39 H BUN Creatinine < 0.2 L Glucose 129 H POC Glucose 130 H 125 H Calcium Ferritin Total Bilirubin Alkaline Phosphatase Lactate Dehydrogenase Total Creatine Kinase CK-MB (CK-2) Rel Index Troponin T C-Reactive Protein Total Protein Albumin Prealbumin LDL Cholesterol Direct HDL Cholesterol Arterial Blood Glucose Arterial Blood Ionized Calcium Urine WBC (Auto) 03/13/20 03/14/20 03/14/20 23:33 05:24 08:07 WBC 16.8 H RBC 2.81 L Hgb 7.9 L Hct 23.9 L MCV MCH RDW 15.9 H Plt Count Lymph % (Auto) [place] % (Auto) Eos % (Auto) Lymph # (Auto) [place] # (Auto) Eos # (Auto) Seg Neutrophils % Seg Neuts % (Manual) 84.0 H Lymphocytes % (Manual) 10.0 L Monocytes % (Manual) Basophils % (Manual) Seg Neutrophils # Seg Neutrophils # Man 14.1 H Lymphocytes # (Manual) Monocytes # (Manual) Eosinophils # (Manual) Basophils # (Manual) PT INR D-Dimer ABG pH POC ABG pCO2 POC ABG pO2 ABG pO2 ABG HCO3 ABG O2 Saturation ABG Base Excess ABG Hemoglobin ABG Oxyhemoglobin ABG Potassium ABG Glucose Oxyhemoglobin Carboxyhemoglobin Sodium Potassium Chloride Carbon Dioxide BUN Creatinine Glucose POC Glucose 146 H 125 H Calcium Ferritin Total Bilirubin Alkaline Phosphatase Lactate Dehydrogenase Total Creatine Kinase CK-MB (CK-2) Rel Index Troponin T C-Reactive Protein Total Protein Albumin Prealbumin LDL Cholesterol Direct HDL Cholesterol Arterial Blood Glucose Arterial Blood Ionized Calcium Urine WBC (Auto) 03/14/20 03/14/20 03/14/20 08:07 12:21 18:26 WBC RBC Hgb Hct MCV MCH RDW Plt Count Lymph % (Auto) [place] % (Auto) Eos % (Auto) Lymph # (Auto) [place] # (Auto) Eos # (Auto) Seg Neutrophils % Seg Neuts % (Manual) Lymphocytes % (Manual) Monocytes % (Manual) Basophils % (Manual) Seg Neutrophils # Seg Neutrophils # Man Lymphocytes # (Manual) Monocytes # (Manual) Eosinophils # (Manual) Basophils # (Manual) PT INR D-Dimer ABG pH POC ABG pCO2 POC ABG pO2 ABG pO2 ABG HCO3 ABG O2 Saturation ABG Base Excess ABG Hemoglobin ABG Oxyhemoglobin ABG Potassium ABG Glucose Oxyhemoglobin Carboxyhemoglobin Sodium Potassium Chloride 97.0 L Carbon Dioxide 37 H BUN Creatinine < 0.2 L Glucose 129 H POC Glucose 109 H 142 H Calcium 8.3 L Ferritin Total Bilirubin Alkaline Phosphatase Lactate Dehydrogenase Total Creatine Kinase CK-MB (CK-2) Rel Index Troponin T C-Reactive Protein Total Protein Albumin Prealbumin LDL Cholesterol Direct HDL Cholesterol Arterial Blood Glucose Arterial Blood Ionized Calcium Urine WBC (Auto) 03/14/20 03/15/20 03/15/20 23:57 05:46 08:06 WBC 19.7 H RBC 3.29 L Hgb 9.1 L Hct 28.0 L MCV MCH RDW 15.9 H Plt Count Lymph % (Auto) [place] % (Auto) Eos % (Auto) Lymph # (Auto) [place] # (Auto) Eos # (Auto) Seg Neutrophils % Seg Neuts % (Manual) Lymphocytes % (Manual) Monocytes % (Manual) Basophils % (Manual) Seg Neutrophils # Seg Neutrophils # Man Lymphocytes # (Manual) Monocytes # (Manual) Eosinophils # (Manual) Basophils # (Manual) PT INR D-Dimer ABG pH POC ABG pCO2 POC ABG pO2 ABG pO2 ABG HCO3 ABG O2 Saturation ABG Base Excess ABG Hemoglobin ABG Oxyhemoglobin ABG Potassium ABG Glucose Oxyhemoglobin Carboxyhemoglobin Sodium Potassium Chloride Carbon Dioxide BUN Creatinine Glucose POC Glucose 157 H 118 H Calcium Ferritin Total Bilirubin Alkaline Phosphatase Lactate Dehydrogenase Total Creatine Kinase CK-MB (CK-2) Rel Index Troponin T C-Reactive Protein Total Protein Albumin Prealbumin LDL Cholesterol Direct HDL Cholesterol Arterial Blood Glucose Arterial Blood Ionized Calcium Urine WBC (Auto) 03/15/20 03/15/20 03/15/20 08:06 12:44 18:09 WBC RBC Hgb Hct MCV MCH RDW Plt Count Lymph % (Auto) [place] % (Auto) Eos % (Auto) Lymph # (Auto) [place] # (Auto) Eos # (Auto) Seg Neutrophils % Seg Neuts % (Manual) Lymphocytes % (Manual) Monocytes % (Manual) Basophils % (Manual) Seg Neutrophils # Seg Neutrophils # Man Lymphocytes # (Manual) Monocytes # (Manual) Eosinophils # (Manual) Basophils # (Manual) PT INR D-Dimer ABG pH POC ABG pCO2 POC ABG pO2 ABG pO2 ABG HCO3 ABG O2 Saturation ABG Base Excess ABG Hemoglobin ABG Oxyhemoglobin ABG Potassium ABG Glucose Oxyhemoglobin Carboxyhemoglobin Sodium 136 L Potassium Chloride 93.6 L Carbon Dioxide 37 H BUN Creatinine < 0.2 L Glucose 132 H POC Glucose 151 H 164 H Calcium Ferritin Total Bilirubin Alkaline Phosphatase Lactate Dehydrogenase Total Creatine Kinase CK-MB (CK-2) Rel Index Troponin T C-Reactive Protein Total Protein Albumin Prealbumin LDL Cholesterol Direct HDL Cholesterol Arterial Blood Glucose Arterial Blood Ionized Calcium Urine WBC (Auto) 03/15/20 03/16/20 03/16/20 23:26 05:39 11:58 WBC RBC Hgb Hct MCV MCH RDW Plt Count Lymph % (Auto) [place] % (Auto) Eos % (Auto) Lymph # (Auto) [place] # (Auto) Eos # (Auto) Seg Neutrophils % Seg Neuts % (Manual) Lymphocytes % (Manual) Monocytes % (Manual) Basophils % (Manual) Seg Neutrophils # Seg Neutrophils # Man Lymphocytes # (Manual) Monocytes # (Manual) Eosinophils # (Manual) Basophils # (Manual) PT INR D-Dimer ABG pH POC ABG pCO2 POC ABG pO2 ABG pO2 ABG HCO3 ABG O2 Saturation ABG Base Excess ABG Hemoglobin ABG Oxyhemoglobin ABG Potassium ABG Glucose Oxyhemoglobin Carboxyhemoglobin Sodium Potassium Chloride Carbon Dioxide BUN Creatinine Glucose POC Glucose 136 H 116 H 109 H Calcium Ferritin Total Bilirubin Alkaline Phosphatase Lactate Dehydrogenase Total Creatine Kinase CK-MB (CK-2) Rel Index Troponin T C-Reactive Protein Total Protein Albumin Prealbumin LDL Cholesterol Direct HDL Cholesterol Arterial Blood Glucose Arterial Blood Ionized Calcium Urine WBC (Auto) 03/16/20 03/17/20 03/17/20 23:56 04:40 04:40 WBC 18.0 H RBC 3.33 L Hgb 9.5 L Hct 28.8 L MCV MCH RDW 16.4 H Plt Count 499 H Lymph % (Auto) [place] % (Auto) Eos % (Auto) Lymph # (Auto) [place] # (Auto) Eos # (Auto) Seg Neutrophils % Seg Neuts % (Manual) 82.0 H Lymphocytes % (Manual) 8.0 L Monocytes % (Manual) Basophils % (Manual) Seg Neutrophils # Seg Neutrophils # Man 14.8 H Lymphocytes # (Manual) Monocytes # (Manual) 1.3 H Eosinophils # (Manual) Basophils # (Manual) 0.2 H PT INR D-Dimer ABG pH POC ABG pCO2 POC ABG pO2 ABG pO2 ABG HCO3 ABG O2 Saturation ABG Base Excess ABG Hemoglobin ABG Oxyhemoglobin ABG Potassium ABG Glucose Oxyhemoglobin Carboxyhemoglobin Sodium Potassium Chloride 97.7 L Carbon Dioxide 32 H BUN Creatinine < 0.2 L Glucose 114 H POC Glucose 131 H Calcium Ferritin Total Bilirubin Alkaline Phosphatase Lactate Dehydrogenase Total Creatine Kinase CK-MB (CK-2) Rel Index Troponin T C-Reactive Protein Total Protein Albumin Prealbumin LDL Cholesterol Direct HDL Cholesterol Arterial Blood Glucose Arterial Blood Ionized Calcium Urine WBC (Auto) 03/18/20 03/18/20 03/18/20 00:21 05:21 11:55 WBC RBC Hgb Hct MCV MCH RDW Plt Count Lymph % (Auto) [place] % (Auto) Eos % (Auto) Lymph # (Auto) [place] # (Auto) Eos # (Auto) Seg Neutrophils % Seg Neuts % (Manual) Lymphocytes % (Manual) Monocytes % (Manual) Basophils % (Manual) Seg Neutrophils # Seg Neutrophils # Man Lymphocytes # (Manual) Monocytes # (Manual) Eosinophils # (Manual) Basophils # (Manual) PT INR D-Dimer ABG pH POC ABG pCO2 POC ABG pO2 ABG pO2 ABG HCO3 ABG O2 Saturation ABG Base Excess ABG Hemoglobin ABG Oxyhemoglobin ABG Potassium ABG Glucose Oxyhemoglobin Carboxyhemoglobin Sodium Potassium Chloride Carbon Dioxide BUN Creatinine Glucose POC Glucose 124 H 138 H 119 H Calcium Ferritin Total Bilirubin Alkaline Phosphatase Lactate Dehydrogenase Total Creatine Kinase CK-MB (CK-2) Rel Index Troponin T C-Reactive Protein Total Protein Albumin Prealbumin LDL Cholesterol Direct HDL Cholesterol Arterial Blood Glucose Arterial Blood Ionized Calcium Urine WBC (Auto) 03/18/20 03/18/20 03/19/20 17:03 23:58 05:24 WBC RBC Hgb Hct MCV MCH RDW Plt Count Lymph % (Auto) [place] % (Auto) Eos % (Auto) Lymph # (Auto) [place] # (Auto) Eos # (Auto) Seg Neutrophils % Seg Neuts % (Manual) Lymphocytes % (Manual) Monocytes % (Manual) Basophils % (Manual) Seg Neutrophils # Seg Neutrophils # Man Lymphocytes # (Manual) Monocytes # (Manual) Eosinophils # (Manual) Basophils # (Manual) PT INR D-Dimer ABG pH POC ABG pCO2 POC ABG pO2 ABG pO2 ABG HCO3 ABG O2 Saturation ABG Base Excess ABG Hemoglobin ABG Oxyhemoglobin ABG Potassium ABG Glucose Oxyhemoglobin Carboxyhemoglobin Sodium Potassium Chloride Carbon Dioxide BUN Creatinine Glucose POC Glucose 128 H 128 H 115 H Calcium Ferritin Total Bilirubin Alkaline Phosphatase Lactate Dehydrogenase Total Creatine Kinase CK-MB (CK-2) Rel Index Troponin T C-Reactive Protein Total Protein Albumin Prealbumin LDL Cholesterol Direct HDL Cholesterol Arterial Blood Glucose Arterial Blood Ionized Calcium Urine WBC (Auto) 03/19/20 03/19/20 03/19/20 08:05 08:05 11:56 WBC 16.8 H RBC 3.36 L Hgb 9.4 L Hct 28.8 L MCV MCH RDW 17.4 H Plt Count 567 H Lymph % (Auto) 7.8 L [place] % (Auto) Eos % (Auto) Lymph # (Auto) [place] # (Auto) 1.2 H Eos # (Auto) Seg Neutrophils % 83.5 H Seg Neuts % (Manual) Lymphocytes % (Manual) Monocytes % (Manual) Basophils % (Manual) Seg Neutrophils # 14.1 H Seg Neutrophils # Man Lymphocytes # (Manual) Monocytes # (Manual) Eosinophils # (Manual) Basophils # (Manual) PT INR D-Dimer ABG pH POC ABG pCO2 POC ABG pO2 ABG pO2 ABG HCO3 ABG O2 Saturation ABG Base Excess ABG Hemoglobin ABG Oxyhemoglobin ABG Potassium ABG Glucose Oxyhemoglobin Carboxyhemoglobin Sodium Potassium Chloride Carbon Dioxide 36 H BUN Creatinine < 0.2 L Glucose 135 H POC Glucose 128 H Calcium Ferritin Total Bilirubin Alkaline Phosphatase Lactate Dehydrogenase Total Creatine Kinase CK-MB (CK-2) Rel Index Troponin T C-Reactive Protein Total Protein Albumin Prealbumin LDL Cholesterol Direct HDL Cholesterol Arterial Blood Glucose Arterial Blood Ionized Calcium Urine WBC (Auto) 03/19/20 03/20/20 03/20/20 23:59 05:12 16:52 WBC RBC Hgb Hct MCV MCH RDW Plt Count Lymph % (Auto) [place] % (Auto) Eos % (Auto) Lymph # (Auto) [place] # (Auto) Eos # (Auto) Seg Neutrophils % Seg Neuts % (Manual) Lymphocytes % (Manual) Monocytes % (Manual) Basophils % (Manual) Seg Neutrophils # Seg Neutrophils # Man Lymphocytes # (Manual) Monocytes # (Manual) Eosinophils # (Manual) Basophils # (Manual) PT INR D-Dimer ABG pH POC ABG pCO2 POC ABG pO2 ABG pO2 ABG HCO3 ABG O2 Saturation ABG Base Excess ABG Hemoglobin ABG Oxyhemoglobin ABG Potassium ABG Glucose Oxyhemoglobin Carboxyhemoglobin Sodium Potassium Chloride Carbon Dioxide BUN Creatinine Glucose POC Glucose 120 H 131 H 124 H Calcium Ferritin Total Bilirubin Alkaline Phosphatase Lactate Dehydrogenase Total Creatine Kinase CK-MB (CK-2) Rel Index Troponin T C-Reactive Protein Total Protein Albumin Prealbumin LDL Cholesterol Direct HDL Cholesterol Arterial Blood Glucose Arterial Blood Ionized Calcium Urine WBC (Auto) 03/20/20 03/21/20 03/21/20 23:35 04:50 07:35 WBC 15.2 H RBC 3.39 L Hgb 9.4 L Hct 29.4 L MCV MCH RDW 17.6 H Plt Count 518 H Lymph % (Auto) [place] % (Auto) Eos % (Auto) Lymph # (Auto) [place] # (Auto) Eos # (Auto) Seg Neutrophils % Seg Neuts % (Manual) 83.0 H Lymphocytes % (Manual) 10.0 L Monocytes % (Manual) Basophils % (Manual) 2.0 H Seg Neutrophils # Seg Neutrophils # Man 12.6 H Lymphocytes # (Manual) Monocytes # (Manual) Eosinophils # (Manual) Basophils # (Manual) 0.3 H PT INR D-Dimer ABG pH POC ABG pCO2 POC ABG pO2 ABG pO2 ABG HCO3 ABG O2 Saturation ABG Base Excess ABG Hemoglobin ABG Oxyhemoglobin ABG Potassium ABG Glucose Oxyhemoglobin Carboxyhemoglobin Sodium Potassium Chloride Carbon Dioxide BUN Creatinine Glucose POC Glucose 125 H 127 H Calcium Ferritin Total Bilirubin Alkaline Phosphatase Lactate Dehydrogenase Total Creatine Kinase CK-MB (CK-2) Rel Index Troponin T C-Reactive Protein Total Protein Albumin Prealbumin LDL Cholesterol Direct HDL Cholesterol Arterial Blood Glucose Arterial Blood Ionized Calcium Urine WBC (Auto) 03/21/20 03/21/20 03/21/20 07:35 11:45 17:22 WBC RBC Hgb Hct MCV MCH RDW Plt Count Lymph % (Auto) [place] % (Auto) Eos % (Auto) Lymph # (Auto) [place] # (Auto) Eos # (Auto) Seg Neutrophils % Seg Neuts % (Manual) Lymphocytes % (Manual) Monocytes % (Manual) Basophils % (Manual) Seg Neutrophils # Seg Neutrophils # Man Lymphocytes # (Manual) Monocytes # (Manual) Eosinophils # (Manual) Basophils # (Manual) PT INR D-Dimer ABG pH POC ABG pCO2 POC ABG pO2 ABG pO2 ABG HCO3 ABG O2 Saturation ABG Base Excess ABG Hemoglobin ABG Oxyhemoglobin ABG Potassium ABG Glucose Oxyhemoglobin Carboxyhemoglobin Sodium 136 L Potassium Chloride 97.7 L Carbon Dioxide 32 H BUN Creatinine < 0.2 L Glucose 103 H POC Glucose 126 H 120 H Calcium Ferritin Total Bilirubin Alkaline Phosphatase Lactate Dehydrogenase Total Creatine Kinase CK-MB (CK-2) Rel Index Troponin T C-Reactive Protein Total Protein Albumin Prealbumin LDL Cholesterol Direct HDL Cholesterol Arterial Blood Glucose Arterial Blood Ionized Calcium Urine WBC (Auto) 03/22/20 03/22/20 03/22/20 05:09 06:34 06:34 WBC 17.5 H RBC 3.52 L Hgb 10.0 L Hct 30.7 L MCV MCH RDW 17.5 H Plt Count 499 H Lymph % (Auto) [place] % (Auto) Eos % (Auto) Lymph # (Auto) [place] # (Auto) Eos # (Auto) Seg Neutrophils % Seg Neuts % (Manual) 80.0 H Lymphocytes % (Manual) 10.0 L Monocytes % (Manual) Basophils % (Manual) Seg Neutrophils # Seg Neutrophils # Man 14.0 H Lymphocytes # (Manual) Monocytes # (Manual) Eosinophils # (Manual) Basophils # (Manual) PT INR D-Dimer ABG pH POC ABG pCO2 POC ABG pO2 ABG pO2 ABG HCO3 ABG O2 Saturation ABG Base Excess ABG Hemoglobin ABG Oxyhemoglobin ABG Potassium ABG Glucose Oxyhemoglobin Carboxyhemoglobin Sodium Potassium Chloride 96.6 L Carbon Dioxide 38 H BUN Creatinine < 0.2 L Glucose 139 H POC Glucose 125 H Calcium Ferritin Total Bilirubin Alkaline Phosphatase Lactate Dehydrogenase Total Creatine Kinase CK-MB (CK-2) Rel Index Troponin T C-Reactive Protein Total Protein Albumin Prealbumin LDL Cholesterol Direct HDL Cholesterol Arterial Blood Glucose Arterial Blood Ionized Calcium Urine WBC (Auto) 03/22/20 03/22/20 03/22/20 11:45 18:00 23:32 WBC RBC Hgb Hct MCV MCH RDW Plt Count Lymph % (Auto) [place] % (Auto) Eos % (Auto) Lymph # (Auto) [place] # (Auto) Eos # (Auto) Seg Neutrophils % Seg Neuts % (Manual) Lymphocytes % (Manual) Monocytes % (Manual) Basophils % (Manual) Seg Neutrophils # Seg Neutrophils # Man Lymphocytes # (Manual) Monocytes # (Manual) Eosinophils # (Manual) Basophils # (Manual) PT INR D-Dimer ABG pH POC ABG pCO2 POC ABG pO2 ABG pO2 ABG HCO3 ABG O2 Saturation ABG Base Excess ABG Hemoglobin ABG Oxyhemoglobin ABG Potassium ABG Glucose Oxyhemoglobin Carboxyhemoglobin Sodium Potassium Chloride Carbon Dioxide BUN Creatinine Glucose POC Glucose 135 H 133 H Calcium Ferritin Total Bilirubin Alkaline Phosphatase Lactate Dehydrogenase Total Creatine Kinase CK-MB (CK-2) Rel Index Troponin T 0.113 H* C-Reactive Protein Total Protein Albumin Prealbumin LDL Cholesterol Direct HDL Cholesterol Arterial Blood Glucose Arterial Blood Ionized Calcium Urine WBC (Auto) 03/23/20 03/23/20 03/23/20 01:47 06:21 07:57 WBC RBC Hgb Hct MCV MCH RDW Plt Count Lymph % (Auto) [place] % (Auto) Eos % (Auto) Lymph # (Auto) [place] # (Auto) Eos # (Auto) Seg Neutrophils % Seg Neuts % (Manual) Lymphocytes % (Manual) Monocytes % (Manual) Basophils % (Manual) Seg Neutrophils # Seg Neutrophils # Man Lymphocytes # (Manual) Monocytes # (Manual) Eosinophils # (Manual) Basophils # (Manual) PT INR D-Dimer ABG pH POC ABG pCO2 POC ABG pO2 ABG pO2 ABG HCO3 ABG O2 Saturation ABG Base Excess ABG Hemoglobin ABG Oxyhemoglobin ABG Potassium ABG Glucose Oxyhemoglobin Carboxyhemoglobin Sodium Potassium Chloride Carbon Dioxide BUN Creatinine Glucose POC Glucose 130 H Calcium Ferritin Total Bilirubin Alkaline Phosphatase Lactate Dehydrogenase Total Creatine Kinase CK-MB (CK-2) Rel Index Troponin T 0.143 H* D 0.105 H* D C-Reactive Protein Total Protein Albumin Prealbumin LDL Cholesterol Direct HDL Cholesterol Arterial Blood Glucose Arterial Blood Ionized Calcium Urine WBC (Auto) 03/23/20 03/24/20 03/24/20 12:02 05:33 07:15 WBC 18.0 H RBC Hgb 11.0 L Hct 34.0 L MCV MCH RDW 17.4 H Plt Count 520 H Lymph % (Auto) [place] % (Auto) Eos % (Auto) Lymph # (Auto) [place] # (Auto) Eos # (Auto) Seg Neutrophils % Seg Neuts % (Manual) 88.0 H Lymphocytes % (Manual) 7.0 L Monocytes % (Manual) Basophils % (Manual) Seg Neutrophils # Seg Neutrophils # Man 15.8 H Lymphocytes # (Manual) Monocytes # (Manual) Eosinophils # (Manual) Basophils # (Manual) PT INR D-Dimer ABG pH POC ABG pCO2 POC ABG pO2 ABG pO2 ABG HCO3 ABG O2 Saturation ABG Base Excess ABG Hemoglobin ABG Oxyhemoglobin ABG Potassium ABG Glucose Oxyhemoglobin Carboxyhemoglobin Sodium Potassium Chloride Carbon Dioxide BUN Creatinine Glucose POC Glucose 137 H 112 H Calcium Ferritin Total Bilirubin Alkaline Phosphatase Lactate Dehydrogenase Total Creatine Kinase CK-MB (CK-2) Rel Index Troponin T C-Reactive Protein Total Protein Albumin Prealbumin LDL Cholesterol Direct HDL Cholesterol Arterial Blood Glucose Arterial Blood Ionized Calcium Urine WBC (Auto) 03/24/20 03/24/20 03/24/20 07:15 11:22 23:30 WBC RBC Hgb Hct MCV MCH RDW Plt Count Lymph % (Auto) [place] % (Auto) Eos % (Auto) Lymph # (Auto) [place] # (Auto) Eos # (Auto) Seg Neutrophils % Seg Neuts % (Manual) Lymphocytes % (Manual) Monocytes % (Manual) Basophils % (Manual) Seg Neutrophils # Seg Neutrophils # Man Lymphocytes # (Manual) Monocytes # (Manual) Eosinophils # (Manual) Basophils # (Manual) PT INR D-Dimer ABG pH POC ABG pCO2 POC ABG pO2 ABG pO2 ABG HCO3 ABG O2 Saturation ABG Base Excess ABG Hemoglobin ABG Oxyhemoglobin ABG Potassium ABG Glucose Oxyhemoglobin Carboxyhemoglobin Sodium Potassium Chloride 96.6 L Carbon Dioxide 38 H BUN Creatinine < 0.2 L Glucose 141 H POC Glucose 130 H 120 H Calcium Ferritin Total Bilirubin Alkaline Phosphatase Lactate Dehydrogenase Total Creatine Kinase CK-MB (CK-2) Rel Index Troponin T C-Reactive Protein Total Protein Albumin Prealbumin LDL Cholesterol Direct HDL Cholesterol Arterial Blood Glucose Arterial Blood Ionized Calcium Urine WBC (Auto) 03/25/20 03/25/20 03/25/20 05:48 17:53 23:18 WBC RBC Hgb Hct MCV MCH RDW Plt Count Lymph % (Auto) [place] % (Auto) Eos % (Auto) Lymph # (Auto) [place] # (Auto) Eos # (Auto) Seg Neutrophils % Seg Neuts % (Manual) Lymphocytes % (Manual) Monocytes % (Manual) Basophils % (Manual) Seg Neutrophils # Seg Neutrophils # Man Lymphocytes # (Manual) Monocytes # (Manual) Eosinophils # (Manual) Basophils # (Manual) PT INR D-Dimer ABG pH POC ABG pCO2 POC ABG pO2 ABG pO2 ABG HCO3 ABG O2 Saturation ABG Base Excess ABG Hemoglobin ABG Oxyhemoglobin ABG Potassium ABG Glucose Oxyhemoglobin Carboxyhemoglobin Sodium Potassium Chloride Carbon Dioxide BUN Creatinine Glucose POC Glucose 124 H 109 H 131 H Calcium Ferritin Total Bilirubin Alkaline Phosphatase Lactate Dehydrogenase Total Creatine Kinase CK-MB (CK-2) Rel Index Troponin T C-Reactive Protein Total Protein Albumin Prealbumin LDL Cholesterol Direct HDL Cholesterol Arterial Blood Glucose Arterial Blood Ionized Calcium Urine WBC (Auto) 03/26/20 03/26/20 03/26/20 05:21 08:49 08:49 WBC 19.7 H RBC Hgb 10.7 L Hct 33.5 L MCV MCH 27 L RDW 17.1 H Plt Count 480 H Lymph % (Auto) 5.7 L [place] % (Auto) Eos % (Auto) Lymph # (Auto) 1.1 L [place] # (Auto) 1.2 H Eos # (Auto) Seg Neutrophils % 87.7 H Seg Neuts % (Manual) Lymphocytes % (Manual) Monocytes % (Manual) Basophils % (Manual) Seg Neutrophils # 17.2 H Seg Neutrophils # Man Lymphocytes # (Manual) Monocytes # (Manual) Eosinophils # (Manual) Basophils # (Manual) PT INR D-Dimer ABG pH POC ABG pCO2 POC ABG pO2 ABG pO2 ABG HCO3 ABG O2 Saturation ABG Base Excess ABG Hemoglobin ABG Oxyhemoglobin ABG Potassium ABG Glucose Oxyhemoglobin Carboxyhemoglobin Sodium Potassium Chloride 97.2 L Carbon Dioxide 36 H BUN Creatinine < 0.2 L Glucose 127 H POC Glucose 116 H Calcium Ferritin Total Bilirubin Alkaline Phosphatase Lactate Dehydrogenase Total Creatine Kinase CK-MB (CK-2) Rel Index Troponin T C-Reactive Protein Total Protein Albumin Prealbumin LDL Cholesterol Direct HDL Cholesterol Arterial Blood Glucose Arterial Blood Ionized Calcium Urine WBC (Auto) 03/26/20 03/26/20 03/26/20 11:38 18:44 23:06 WBC RBC Hgb Hct MCV MCH RDW Plt Count Lymph % (Auto) [place] % (Auto) Eos % (Auto) Lymph # (Auto) [place] # (Auto) Eos # (Auto) Seg Neutrophils % Seg Neuts % (Manual) Lymphocytes % (Manual) Monocytes % (Manual) Basophils % (Manual) Seg Neutrophils # Seg Neutrophils # Man Lymphocytes # (Manual) Monocytes # (Manual) Eosinophils # (Manual) Basophils # (Manual) PT INR D-Dimer ABG pH POC ABG pCO2 POC ABG pO2 ABG pO2 ABG HCO3 ABG O2 Saturation ABG Base Excess ABG Hemoglobin ABG Oxyhemoglobin ABG Potassium ABG Glucose Oxyhemoglobin Carboxyhemoglobin Sodium Potassium Chloride Carbon Dioxide BUN Creatinine Glucose POC Glucose 120 H 111 H 134 H Calcium Ferritin Total Bilirubin Alkaline Phosphatase Lactate Dehydrogenase Total Creatine Kinase CK-MB (CK-2) Rel Index Troponin T C-Reactive Protein Total Protein Albumin Prealbumin LDL Cholesterol Direct HDL Cholesterol Arterial Blood Glucose Arterial Blood Ionized Calcium Urine WBC (Auto) 03/27/20 03/27/20 03/27/20 05:41 05:59 05:59 WBC 18.6 H RBC Hgb 10.1 L Hct 31.4 L MCV MCH RDW 17.2 H Plt Count Lymph % (Auto) 8.0 L [place] % (Auto) Eos % (Auto) Lymph # (Auto) [place] # (Auto) 1.2 H Eos # (Auto) Seg Neutrophils % 84.7 H Seg Neuts % (Manual) Lymphocytes % (Manual) Monocytes % (Manual) Basophils % (Manual) Seg Neutrophils # 15.8 H Seg Neutrophils # Man Lymphocytes # (Manual) Monocytes # (Manual) Eosinophils # (Manual) Basophils # (Manual) PT INR D-Dimer ABG pH POC ABG pCO2 POC ABG pO2 ABG pO2 ABG HCO3 ABG O2 Saturation ABG Base Excess ABG Hemoglobin ABG Oxyhemoglobin ABG Potassium ABG Glucose Oxyhemoglobin Carboxyhemoglobin Sodium Potassium Chloride Carbon Dioxide 34 H BUN Creatinine < 0.2 L Glucose 127 H POC Glucose 129 H Calcium Ferritin Total Bilirubin Alkaline Phosphatase Lactate Dehydrogenase Total Creatine Kinase CK-MB (CK-2) Rel Index Troponin T C-Reactive Protein Total Protein Albumin Prealbumin LDL Cholesterol Direct HDL Cholesterol Arterial Blood Glucose Arterial Blood Ionized Calcium Urine WBC (Auto) 03/27/20 03/27/20 03/28/20 17:28 23:22 05:23 WBC RBC Hgb Hct MCV MCH RDW Plt Count Lymph % (Auto) [place] % (Auto) Eos % (Auto) Lymph # (Auto) [place] # (Auto) Eos # (Auto) Seg Neutrophils % Seg Neuts % (Manual) Lymphocytes % (Manual) Monocytes % (Manual) Basophils % (Manual) Seg Neutrophils # Seg Neutrophils # Man Lymphocytes # (Manual) Monocytes # (Manual) Eosinophils # (Manual) Basophils # (Manual) PT INR D-Dimer ABG pH POC ABG pCO2 POC ABG pO2 ABG pO2 ABG HCO3 ABG O2 Saturation ABG Base Excess ABG Hemoglobin ABG Oxyhemoglobin ABG Potassium ABG Glucose Oxyhemoglobin Carboxyhemoglobin Sodium Potassium Chloride Carbon Dioxide BUN Creatinine Glucose POC Glucose 108 H 119 H 129 H Calcium Ferritin Total Bilirubin Alkaline Phosphatase Lactate Dehydrogenase Total Creatine Kinase CK-MB (CK-2) Rel Index Troponin T C-Reactive Protein Total Protein Albumin Prealbumin LDL Cholesterol Direct HDL Cholesterol Arterial Blood Glucose Arterial Blood Ionized Calcium Urine WBC (Auto) 03/28/20 03/28/20 03/28/20 10:28 10:28 11:36 WBC 23.6 H RBC 3.62 L Hgb 10.0 L Hct 30.8 L MCV MCH RDW 16.4 H Plt Count Lymph % (Auto) [place] % (Auto) Eos % (Auto) Lymph # (Auto) [place] # (Auto) Eos # (Auto) Seg Neutrophils % Seg Neuts % (Manual) 89.0 H Lymphocytes % (Manual) 5.0 L Monocytes % (Manual) Basophils % (Manual) Seg Neutrophils # Seg Neutrophils # Man 21.0 H Lymphocytes # (Manual) Monocytes # (Manual) 1.2 H Eosinophils # (Manual) Basophils # (Manual) 0.2 H PT INR D-Dimer ABG pH POC ABG pCO2 POC ABG pO2 ABG pO2 ABG HCO3 ABG O2 Saturation ABG Base Excess ABG Hemoglobin ABG Oxyhemoglobin ABG Potassium ABG Glucose Oxyhemoglobin Carboxyhemoglobin Sodium 134 L Potassium Chloride 94.2 L Carbon Dioxide 35 H BUN Creatinine < 0.2 L Glucose 134 H POC Glucose Calcium Ferritin Total Bilirubin Alkaline Phosphatase Lactate Dehydrogenase Total Creatine Kinase CK-MB (CK-2) Rel Index Troponin T C-Reactive Protein Total Protein Albumin Prealbumin LDL Cholesterol Direct HDL Cholesterol Arterial Blood Glucose Arterial Blood Ionized Calcium Urine WBC (Auto) 39.0 H 03/28/20 03/28/20 03/28/20 11:51 17:08 17:17 WBC RBC Hgb Hct MCV MCH RDW Plt Count Lymph % (Auto) [place] % (Auto) Eos % (Auto) Lymph # (Auto) [place] # (Auto) Eos # (Auto) Seg Neutrophils % Seg Neuts % (Manual) Lymphocytes % (Manual) Monocytes % (Manual) Basophils % (Manual) Seg Neutrophils # Seg Neutrophils # Man Lymphocytes # (Manual) Monocytes # (Manual) Eosinophils # (Manual) Basophils # (Manual) PT INR D-Dimer ABG pH POC ABG pCO2 POC ABG pO2 ABG pO2 ABG HCO3 ABG O2 Saturation ABG Base Excess ABG Hemoglobin ABG Oxyhemoglobin ABG Potassium ABG Glucose Oxyhemoglobin Carboxyhemoglobin Sodium Potassium Chloride Carbon Dioxide BUN Creatinine Glucose POC Glucose 123 H 112 H Calcium Ferritin Total Bilirubin Alkaline Phosphatase Lactate Dehydrogenase Total Creatine Kinase 47 L CK-MB (CK-2) Rel Index 4.6 H Troponin T 0.090 H C-Reactive Protein Total Protein Albumin Prealbumin LDL Cholesterol Direct HDL Cholesterol Arterial Blood Glucose Arterial Blood Ionized Calcium Urine WBC (Auto) 03/28/20 03/29/20 03/29/20 23:22 05:22 10:58 WBC RBC Hgb Hct MCV MCH RDW Plt Count Lymph % (Auto) [place] % (Auto) Eos % (Auto) Lymph # (Auto) [place] # (Auto) Eos # (Auto) Seg Neutrophils % Seg Neuts % (Manual) Lymphocytes % (Manual) Monocytes % (Manual) Basophils % (Manual) Seg Neutrophils # Seg Neutrophils # Man Lymphocytes # (Manual) Monocytes # (Manual) Eosinophils # (Manual) Basophils # (Manual) PT INR D-Dimer ABG pH POC ABG pCO2 POC ABG pO2 ABG pO2 ABG HCO3 ABG O2 Saturation ABG Base Excess ABG Hemoglobin ABG Oxyhemoglobin ABG Potassium ABG Glucose Oxyhemoglobin Carboxyhemoglobin Sodium Potassium Chloride Carbon Dioxide BUN Creatinine Glucose POC Glucose 122 H 116 H 133 H Calcium Ferritin Total Bilirubin Alkaline Phosphatase Lactate Dehydrogenase Total Creatine Kinase CK-MB (CK-2) Rel Index Troponin T C-Reactive Protein Total Protein Albumin Prealbumin LDL Cholesterol Direct HDL Cholesterol Arterial Blood Glucose Arterial Blood Ionized Calcium Urine WBC (Auto) 03/29/20 03/29/20 03/30/20 17:18 23:14 04:57 WBC RBC Hgb Hct MCV MCH RDW Plt Count Lymph % (Auto) [place] % (Auto) Eos % (Auto) Lymph # (Auto) [place] # (Auto) Eos # (Auto) Seg Neutrophils % Seg Neuts % (Manual) Lymphocytes % (Manual) Monocytes % (Manual) Basophils % (Manual) Seg Neutrophils # Seg Neutrophils # Man Lymphocytes # (Manual) Monocytes # (Manual) Eosinophils # (Manual) Basophils # (Manual) PT INR D-Dimer ABG pH POC ABG pCO2 POC ABG pO2 ABG pO2 ABG HCO3 ABG O2 Saturation ABG Base Excess ABG Hemoglobin ABG Oxyhemoglobin ABG Potassium ABG Glucose Oxyhemoglobin Carboxyhemoglobin Sodium Potassium Chloride Carbon Dioxide BUN Creatinine Glucose POC Glucose 111 H 114 H 130 H Calcium Ferritin Total Bilirubin Alkaline Phosphatase Lactate Dehydrogenase Total Creatine Kinase CK-MB (CK-2) Rel Index Troponin T C-Reactive Protein Total Protein Albumin Prealbumin LDL Cholesterol Direct HDL Cholesterol Arterial Blood Glucose Arterial Blood Ionized Calcium Urine WBC (Auto) 03/30/20 03/30/20 03/30/20 11:38 14:47 14:47 WBC 19.9 H RBC Hgb 10.9 L Hct 34.4 L MCV MCH 27 L RDW 16.5 H Plt Count 441 H Lymph % (Auto) 6.4 L [place] % (Auto) Eos % (Auto) Lymph # (Auto) [place] # (Auto) 1.4 H Eos # (Auto) Seg Neutrophils % 86.1 H Seg Neuts % (Manual) Lymphocytes % (Manual) Monocytes % (Manual) Basophils % (Manual) Seg Neutrophils # 17.1 H Seg Neutrophils # Man Lymphocytes # (Manual) Monocytes # (Manual) Eosinophils # (Manual) Basophils # (Manual) PT INR D-Dimer ABG pH POC ABG pCO2 POC ABG pO2 ABG pO2 ABG HCO3 ABG O2 Saturation ABG Base Excess ABG Hemoglobin ABG Oxyhemoglobin ABG Potassium ABG Glucose Oxyhemoglobin Carboxyhemoglobin Sodium 133 L Potassium Chloride 94.6 L Carbon Dioxide 33 H BUN Creatinine < 0.2 L Glucose 194 H POC Glucose 139 H Calcium Ferritin Total Bilirubin Alkaline Phosphatase Lactate Dehydrogenase Total Creatine Kinase CK-MB (CK-2) Rel Index Troponin T C-Reactive Protein Total Protein Albumin 2.8 L Prealbumin LDL Cholesterol Direct HDL Cholesterol Arterial Blood Glucose Arterial Blood Ionized Calcium Urine WBC (Auto) 03/30/20 03/31/20 03/31/20 17:07 05:02 15:21 WBC RBC Hgb Hct MCV MCH RDW Plt Count Lymph % (Auto) [place] % (Auto) Eos % (Auto) Lymph # (Auto) [place] # (Auto) Eos # (Auto) Seg Neutrophils % Seg Neuts % (Manual) Lymphocytes % (Manual) Monocytes % (Manual) Basophils % (Manual) Seg Neutrophils # Seg Neutrophils # Man Lymphocytes # (Manual) Monocytes # (Manual) Eosinophils # (Manual) Basophils # (Manual) PT INR D-Dimer ABG pH POC ABG pCO2 POC ABG pO2 ABG pO2 ABG HCO3 ABG O2 Saturation ABG Base Excess ABG Hemoglobin ABG Oxyhemoglobin ABG Potassium ABG Glucose Oxyhemoglobin Carboxyhemoglobin Sodium Potassium Chloride Carbon Dioxide BUN Creatinine Glucose POC Glucose 163 H 108 H 110 H Calcium Ferritin Total Bilirubin Alkaline Phosphatase Lactate Dehydrogenase Total Creatine Kinase CK-MB (CK-2) Rel Index Troponin T C-Reactive Protein Total Protein Albumin Prealbumin LDL Cholesterol Direct HDL Cholesterol Arterial Blood Glucose Arterial Blood Ionized Calcium Urine WBC (Auto) 03/31/20 03/31/20 04/01/20 17:58 23:19 05:09 WBC RBC Hgb Hct MCV MCH RDW Plt Count Lymph % (Auto) [place] % (Auto) Eos % (Auto) Lymph # (Auto) [place] # (Auto) Eos # (Auto) Seg Neutrophils % Seg Neuts % (Manual) Lymphocytes % (Manual) Monocytes % (Manual) Basophils % (Manual) Seg Neutrophils # Seg Neutrophils # Man Lymphocytes # (Manual) Monocytes # (Manual) Eosinophils # (Manual) Basophils # (Manual) PT INR D-Dimer ABG pH POC ABG pCO2 POC ABG pO2 ABG pO2 ABG HCO3 ABG O2 Saturation ABG Base Excess ABG Hemoglobin ABG Oxyhemoglobin ABG Potassium ABG Glucose Oxyhemoglobin Carboxyhemoglobin Sodium Potassium Chloride Carbon Dioxide BUN Creatinine Glucose POC Glucose 110 H 131 H 124 H Calcium Ferritin Total Bilirubin Alkaline Phosphatase Lactate Dehydrogenase Total Creatine Kinase CK-MB (CK-2) Rel Index Troponin T C-Reactive Protein Total Protein Albumin Prealbumin LDL Cholesterol Direct HDL Cholesterol Arterial Blood Glucose Arterial Blood Ionized Calcium Urine WBC (Auto) 04/01/20 04/01/20 04/01/20 11:50 17:01 23:21 WBC RBC Hgb Hct MCV MCH RDW Plt Count Lymph % (Auto) [place] % (Auto) Eos % (Auto) Lymph # (Auto) [place] # (Auto) Eos # (Auto) Seg Neutrophils % Seg Neuts % (Manual) Lymphocytes % (Manual) Monocytes % (Manual) Basophils % (Manual) Seg Neutrophils # Seg Neutrophils # Man Lymphocytes # (Manual) Monocytes # (Manual) Eosinophils # (Manual) Basophils # (Manual) PT INR D-Dimer ABG pH POC ABG pCO2 POC ABG pO2 ABG pO2 ABG HCO3 ABG O2 Saturation ABG Base Excess ABG Hemoglobin ABG Oxyhemoglobin ABG Potassium ABG Glucose Oxyhemoglobin Carboxyhemoglobin Sodium Potassium Chloride Carbon Dioxide BUN Creatinine Glucose POC Glucose 136 H 115 H 124 H Calcium Ferritin Total Bilirubin Alkaline Phosphatase Lactate Dehydrogenase Total Creatine Kinase CK-MB (CK-2) Rel Index Troponin T C-Reactive Protein Total Protein Albumin Prealbumin LDL Cholesterol Direct HDL Cholesterol Arterial Blood Glucose Arterial Blood Ionized Calcium Urine WBC (Auto) 04/02/20 04/02/20 04/02/20 05:27 11:58 17:58 WBC RBC Hgb Hct MCV MCH RDW Plt Count Lymph % (Auto) [place] % (Auto) Eos % (Auto) Lymph # (Auto) [place] # (Auto) Eos # (Auto) Seg Neutrophils % Seg Neuts % (Manual) Lymphocytes % (Manual) Monocytes % (Manual) Basophils % (Manual) Seg Neutrophils # Seg Neutrophils # Man Lymphocytes # (Manual) Monocytes # (Manual) Eosinophils # (Manual) Basophils # (Manual) PT INR D-Dimer ABG pH POC ABG pCO2 POC ABG pO2 ABG pO2 ABG HCO3 ABG O2 Saturation ABG Base Excess ABG Hemoglobin ABG Oxyhemoglobin ABG Potassium ABG Glucose Oxyhemoglobin Carboxyhemoglobin Sodium Potassium Chloride Carbon Dioxide BUN Creatinine Glucose POC Glucose 117 H 133 H 122 H Calcium Ferritin Total Bilirubin Alkaline Phosphatase Lactate Dehydrogenase Total Creatine Kinase CK-MB (CK-2) Rel Index Troponin T C-Reactive Protein Total Protein Albumin Prealbumin LDL Cholesterol Direct HDL Cholesterol Arterial Blood Glucose Arterial Blood Ionized Calcium Urine WBC (Auto) 04/02/20 04/03/20 04/03/20 23:12 05:11 11:11 WBC RBC Hgb Hct MCV MCH RDW Plt Count Lymph % (Auto) [place] % (Auto) Eos % (Auto) Lymph # (Auto) [place] # (Auto) Eos # (Auto) Seg Neutrophils % Seg Neuts % (Manual) Lymphocytes % (Manual) Monocytes % (Manual) Basophils % (Manual) Seg Neutrophils # Seg Neutrophils # Man Lymphocytes # (Manual) Monocytes # (Manual) Eosinophils # (Manual) Basophils # (Manual) PT INR D-Dimer ABG pH POC ABG pCO2 POC ABG pO2 ABG pO2 ABG HCO3 ABG O2 Saturation ABG Base Excess ABG Hemoglobin ABG Oxyhemoglobin ABG Potassium ABG Glucose Oxyhemoglobin Carboxyhemoglobin Sodium Potassium Chloride Carbon Dioxide BUN Creatinine Glucose POC Glucose 130 H 139 H 136 H Calcium Ferritin Total Bilirubin Alkaline Phosphatase Lactate Dehydrogenase Total Creatine Kinase CK-MB (CK-2) Rel Index Troponin T C-Reactive Protein Total Protein Albumin Prealbumin LDL Cholesterol Direct HDL Cholesterol Arterial Blood Glucose Arterial Blood Ionized Calcium Urine WBC (Auto) 04/03/20 04/03/20 04/04/20 16:51 23:25 05:29 WBC RBC Hgb Hct MCV MCH RDW Plt Count Lymph % (Auto) [place] % (Auto) Eos % (Auto) Lymph # (Auto) [place] # (Auto) Eos # (Auto) Seg Neutrophils % Seg Neuts % (Manual) Lymphocytes % (Manual) Monocytes % (Manual) Basophils % (Manual) Seg Neutrophils # Seg Neutrophils # Man Lymphocytes # (Manual) Monocytes # (Manual) Eosinophils # (Manual) Basophils # (Manual) PT INR D-Dimer ABG pH POC ABG pCO2 POC ABG pO2 ABG pO2 ABG HCO3 ABG O2 Saturation ABG Base Excess ABG Hemoglobin ABG Oxyhemoglobin ABG Potassium ABG Glucose Oxyhemoglobin Carboxyhemoglobin Sodium Potassium Chloride Carbon Dioxide BUN Creatinine Glucose POC Glucose 118 H 111 H 126 H Calcium Ferritin Total Bilirubin Alkaline Phosphatase Lactate Dehydrogenase Total Creatine Kinase CK-MB (CK-2) Rel Index Troponin T C-Reactive Protein Total Protein Albumin Prealbumin LDL Cholesterol Direct HDL Cholesterol Arterial Blood Glucose Arterial Blood Ionized Calcium Urine WBC (Auto) 04/04/20 04/04/20 04/04/20 11:47 17:41 23:05 WBC RBC Hgb Hct MCV MCH RDW Plt Count Lymph % (Auto) [place] % (Auto) Eos % (Auto) Lymph # (Auto) [place] # (Auto) Eos # (Auto) Seg Neutrophils % Seg Neuts % (Manual) Lymphocytes % (Manual) Monocytes % (Manual) Basophils % (Manual) Seg Neutrophils # Seg Neutrophils # Man Lymphocytes # (Manual) Monocytes # (Manual) Eosinophils # (Manual) Basophils # (Manual) PT INR D-Dimer ABG pH POC ABG pCO2 POC ABG pO2 ABG pO2 ABG HCO3 ABG O2 Saturation ABG Base Excess ABG Hemoglobin ABG Oxyhemoglobin ABG Potassium ABG Glucose Oxyhemoglobin Carboxyhemoglobin Sodium Potassium Chloride Carbon Dioxide BUN Creatinine Glucose POC Glucose 123 H 120 H 119 H Calcium Ferritin Total Bilirubin Alkaline Phosphatase Lactate Dehydrogenase Total Creatine Kinase CK-MB (CK-2) Rel Index Troponin T C-Reactive Protein Total Protein Albumin Prealbumin LDL Cholesterol Direct HDL Cholesterol Arterial Blood Glucose Arterial Blood Ionized Calcium Urine WBC (Auto) 04/05/20 04/05/20 04/05/20 05:14 12:16 18:48 WBC RBC Hgb Hct MCV MCH RDW Plt Count Lymph % (Auto) [place] % (Auto) Eos % (Auto) Lymph # (Auto) [place] # (Auto) Eos # (Auto) Seg Neutrophils % Seg Neuts % (Manual) Lymphocytes % (Manual) Monocytes % (Manual) Basophils % (Manual) Seg Neutrophils # Seg Neutrophils # Man Lymphocytes # (Manual) Monocytes # (Manual) Eosinophils # (Manual) Basophils # (Manual) PT INR D-Dimer ABG pH POC ABG pCO2 POC ABG pO2 ABG pO2 ABG HCO3 ABG O2 Saturation ABG Base Excess ABG Hemoglobin ABG Oxyhemoglobin ABG Potassium ABG Glucose Oxyhemoglobin Carboxyhemoglobin Sodium Potassium Chloride Carbon Dioxide BUN Creatinine Glucose POC Glucose 123 H 148 H 106 H Calcium Ferritin Total Bilirubin Alkaline Phosphatase Lactate Dehydrogenase Total Creatine Kinase CK-MB (CK-2) Rel Index Troponin T C-Reactive Protein Total Protein Albumin Prealbumin LDL Cholesterol Direct HDL Cholesterol Arterial Blood Glucose Arterial Blood Ionized Calcium Urine WBC (Auto) 04/06/20 04/06/20 04/06/20 00:47 03:26 08:24 WBC RBC Hgb Hct MCV MCH RDW Plt Count Lymph % (Auto) [place] % (Auto) Eos % (Auto) Lymph # (Auto) [place] # (Auto) Eos # (Auto) Seg Neutrophils % Seg Neuts % (Manual) Lymphocytes % (Manual) Monocytes % (Manual) Basophils % (Manual) Seg Neutrophils # Seg Neutrophils # Man Lymphocytes # (Manual) Monocytes # (Manual) Eosinophils # (Manual) Basophils # (Manual) PT INR D-Dimer ABG pH POC ABG pCO2 POC ABG pO2 ABG pO2 ABG HCO3 ABG O2 Saturation ABG Base Excess ABG Hemoglobin ABG Oxyhemoglobin ABG Potassium ABG Glucose Oxyhemoglobin Carboxyhemoglobin Sodium Potassium Chloride Carbon Dioxide BUN Creatinine Glucose POC Glucose 129 H 134 H 131 H Calcium Ferritin Total Bilirubin Alkaline Phosphatase Lactate Dehydrogenase Total Creatine Kinase CK-MB (CK-2) Rel Index Troponin T C-Reactive Protein Total Protein Albumin Prealbumin LDL Cholesterol Direct HDL Cholesterol Arterial Blood Glucose Arterial Blood Ionized Calcium Urine WBC (Auto) 04/06/20 04/06/20 04/06/20 11:16 16:27 23:01 WBC RBC Hgb Hct MCV MCH RDW Plt Count Lymph % (Auto) [place] % (Auto) Eos % (Auto) Lymph # (Auto) [place] # (Auto) Eos # (Auto) Seg Neutrophils % Seg Neuts % (Manual) Lymphocytes % (Manual) Monocytes % (Manual) Basophils % (Manual) Seg Neutrophils # Seg Neutrophils # Man Lymphocytes # (Manual) Monocytes # (Manual) Eosinophils # (Manual) Basophils # (Manual) PT INR D-Dimer ABG pH POC ABG pCO2 POC ABG pO2 ABG pO2 ABG HCO3 ABG O2 Saturation ABG Base Excess ABG Hemoglobin ABG Oxyhemoglobin ABG Potassium ABG Glucose Oxyhemoglobin Carboxyhemoglobin Sodium Potassium Chloride Carbon Dioxide BUN Creatinine Glucose POC Glucose 131 H 107 H 125 H Calcium Ferritin Total Bilirubin Alkaline Phosphatase Lactate Dehydrogenase Total Creatine Kinase CK-MB (CK-2) Rel Index Troponin T C-Reactive Protein Total Protein Albumin Prealbumin LDL Cholesterol Direct HDL Cholesterol Arterial Blood Glucose Arterial Blood Ionized Calcium Urine WBC (Auto) 04/07/20 04/07/20 04/07/20 05:24 12:41 17:40 WBC RBC Hgb Hct MCV MCH RDW Plt Count Lymph % (Auto) [place] % (Auto) Eos % (Auto) Lymph # (Auto) [place] # (Auto) Eos # (Auto) Seg Neutrophils % Seg Neuts % (Manual) Lymphocytes % (Manual) Monocytes % (Manual) Basophils % (Manual) Seg Neutrophils # Seg Neutrophils # Man Lymphocytes # (Manual) Monocytes # (Manual) Eosinophils # (Manual) Basophils # (Manual) PT INR D-Dimer ABG pH POC ABG pCO2 POC ABG pO2 ABG pO2 ABG HCO3 ABG O2 Saturation ABG Base Excess ABG Hemoglobin ABG Oxyhemoglobin ABG Potassium ABG Glucose Oxyhemoglobin Carboxyhemoglobin Sodium Potassium Chloride Carbon Dioxide BUN Creatinine Glucose POC Glucose 125 H 145 H 123 H Calcium Ferritin Total Bilirubin Alkaline Phosphatase Lactate Dehydrogenase Total Creatine Kinase CK-MB (CK-2) Rel Index Troponin T C-Reactive Protein Total Protein Albumin Prealbumin LDL Cholesterol Direct HDL Cholesterol Arterial Blood Glucose Arterial Blood Ionized Calcium Urine WBC (Auto) 04/07/20 04/08/20 04/08/20 23:22 05:40 11:29 WBC RBC Hgb Hct MCV MCH RDW Plt Count Lymph % (Auto) [place] % (Auto) Eos % (Auto) Lymph # (Auto) [place] # (Auto) Eos # (Auto) Seg Neutrophils % Seg Neuts % (Manual) Lymphocytes % (Manual) Monocytes % (Manual) Basophils % (Manual) Seg Neutrophils # Seg Neutrophils # Man Lymphocytes # (Manual) Monocytes # (Manual) Eosinophils # (Manual) Basophils # (Manual) PT INR D-Dimer ABG pH POC ABG pCO2 POC ABG pO2 ABG pO2 ABG HCO3 ABG O2 Saturation ABG Base Excess ABG Hemoglobin ABG Oxyhemoglobin ABG Potassium ABG Glucose Oxyhemoglobin Carboxyhemoglobin Sodium Potassium Chloride Carbon Dioxide BUN Creatinine Glucose POC Glucose 133 H 125 H 116 H Calcium Ferritin Total Bilirubin Alkaline Phosphatase Lactate Dehydrogenase Total Creatine Kinase CK-MB (CK-2) Rel Index Troponin T C-Reactive Protein Total Protein Albumin Prealbumin LDL Cholesterol Direct HDL Cholesterol Arterial Blood Glucose Arterial Blood Ionized Calcium Urine WBC (Auto) 04/08/20 04/09/20 04/09/20 17:43 05:47 12:22 WBC RBC Hgb Hct MCV MCH RDW Plt Count Lymph % (Auto) [place] % (Auto) Eos % (Auto) Lymph # (Auto) [place] # (Auto) Eos # (Auto) Seg Neutrophils % Seg Neuts % (Manual) Lymphocytes % (Manual) Monocytes % (Manual) Basophils % (Manual) Seg Neutrophils # Seg Neutrophils # Man Lymphocytes # (Manual) Monocytes # (Manual) Eosinophils # (Manual) Basophils # (Manual) PT INR D-Dimer ABG pH POC ABG pCO2 POC ABG pO2 ABG pO2 ABG HCO3 ABG O2 Saturation ABG Base Excess ABG Hemoglobin ABG Oxyhemoglobin ABG Potassium ABG Glucose Oxyhemoglobin Carboxyhemoglobin Sodium Potassium Chloride Carbon Dioxide BUN Creatinine Glucose POC Glucose 123 H 108 H 116 H Calcium Ferritin Total Bilirubin Alkaline Phosphatase Lactate Dehydrogenase Total Creatine Kinase CK-MB (CK-2) Rel Index Troponin T C-Reactive Protein Total Protein Albumin Prealbumin LDL Cholesterol Direct HDL Cholesterol Arterial Blood Glucose Arterial Blood Ionized Calcium Urine WBC (Auto) 04/09/20 04/09/20 04/10/20 17:24 23:52 06:10 WBC RBC Hgb Hct MCV MCH RDW Plt Count Lymph % (Auto) [place] % (Auto) Eos % (Auto) Lymph # (Auto) [place] # (Auto) Eos # (Auto) Seg Neutrophils % Seg Neuts % (Manual) Lymphocytes % (Manual) Monocytes % (Manual) Basophils % (Manual) Seg Neutrophils # Seg Neutrophils # Man Lymphocytes # (Manual) Monocytes # (Manual) Eosinophils # (Manual) Basophils # (Manual) PT INR D-Dimer ABG pH POC ABG pCO2 POC ABG pO2 ABG pO2 ABG HCO3 ABG O2 Saturation ABG Base Excess ABG Hemoglobin ABG Oxyhemoglobin ABG Potassium ABG Glucose Oxyhemoglobin Carboxyhemoglobin Sodium Potassium Chloride Carbon Dioxide BUN Creatinine Glucose POC Glucose 108 H 126 H 122 H Calcium Ferritin Total Bilirubin Alkaline Phosphatase Lactate Dehydrogenase Total Creatine Kinase CK-MB (CK-2) Rel Index Troponin T C-Reactive Protein Total Protein Albumin Prealbumin LDL Cholesterol Direct HDL Cholesterol Arterial Blood Glucose Arterial Blood Ionized Calcium Urine WBC (Auto) 04/10/20 04/10/20 04/10/20 11:27 18:11 23:24 WBC RBC Hgb Hct MCV MCH RDW Plt Count Lymph % (Auto) [place] % (Auto) Eos % (Auto) Lymph # (Auto) [place] # (Auto) Eos # (Auto) Seg Neutrophils % Seg Neuts % (Manual) Lymphocytes % (Manual) Monocytes % (Manual) Basophils % (Manual) Seg Neutrophils # Seg Neutrophils # Man Lymphocytes # (Manual) Monocytes # (Manual) Eosinophils # (Manual) Basophils # (Manual) PT INR D-Dimer ABG pH POC ABG pCO2 POC ABG pO2 ABG pO2 ABG HCO3 ABG O2 Saturation ABG Base Excess ABG Hemoglobin ABG Oxyhemoglobin ABG Potassium ABG Glucose Oxyhemoglobin Carboxyhemoglobin Sodium Potassium Chloride Carbon Dioxide BUN Creatinine Glucose POC Glucose 129 H 125 H 107 H Calcium Ferritin Total Bilirubin Alkaline Phosphatase Lactate Dehydrogenase Total Creatine Kinase CK-MB (CK-2) Rel Index Troponin T C-Reactive Protein Total Protein Albumin Prealbumin LDL Cholesterol Direct HDL Cholesterol Arterial Blood Glucose Arterial Blood Ionized Calcium Urine WBC (Auto) 04/11/20 04/11/20 04/11/20 05:28 11:46 23:49 WBC RBC Hgb Hct MCV MCH RDW Plt Count Lymph % (Auto) [place] % (Auto) Eos % (Auto) Lymph # (Auto) [place] # (Auto) Eos # (Auto) Seg Neutrophils % Seg Neuts % (Manual) Lymphocytes % (Manual) Monocytes % (Manual) Basophils % (Manual) Seg Neutrophils # Seg Neutrophils # Man Lymphocytes # (Manual) Monocytes # (Manual) Eosinophils # (Manual) Basophils # (Manual) PT INR D-Dimer ABG pH POC ABG pCO2 POC ABG pO2 ABG pO2 ABG HCO3 ABG O2 Saturation ABG Base Excess ABG Hemoglobin ABG Oxyhemoglobin ABG Potassium ABG Glucose Oxyhemoglobin Carboxyhemoglobin Sodium Potassium Chloride Carbon Dioxide BUN Creatinine Glucose POC Glucose 122 H 122 H 116 H Calcium Ferritin Total Bilirubin Alkaline Phosphatase Lactate Dehydrogenase Total Creatine Kinase CK-MB (CK-2) Rel Index Troponin T C-Reactive Protein Total Protein Albumin Prealbumin LDL Cholesterol Direct HDL Cholesterol Arterial Blood Glucose Arterial Blood Ionized Calcium Urine WBC (Auto) 04/12/20 04/12/20 04/12/20 09:07 09:07 11:39 WBC 13.1 H RBC 3.59 L Hgb 9.5 L Hct 29.8 L MCV 83 L MCH 26 L RDW 16.6 H Plt Count 591 H Lymph % (Auto) [place] % (Auto) Eos % (Auto) Lymph # (Auto) [place] # (Auto) Eos # (Auto) Seg Neutrophils % Seg Neuts % (Manual) 86.0 H Lymphocytes % (Manual) 7.0 L Monocytes % (Manual) Basophils % (Manual) Seg Neutrophils # Seg Neutrophils # Man 11.3 H Lymphocytes # (Manual) 0.9 L Monocytes # (Manual) Eosinophils # (Manual) Basophils # (Manual) PT INR D-Dimer ABG pH POC ABG pCO2 POC ABG pO2 ABG pO2 ABG HCO3 ABG O2 Saturation ABG Base Excess ABG Hemoglobin ABG Oxyhemoglobin ABG Potassium ABG Glucose Oxyhemoglobin Carboxyhemoglobin Sodium Potassium Chloride Carbon Dioxide 36 H BUN Creatinine < 0.2 L Glucose 132 H POC Glucose 136 H Calcium Ferritin Total Bilirubin Alkaline Phosphatase Lactate Dehydrogenase Total Creatine Kinase CK-MB (CK-2) Rel Index Troponin T C-Reactive Protein Total Protein Albumin 2.7 L Prealbumin LDL Cholesterol Direct HDL Cholesterol Arterial Blood Glucose Arterial Blood Ionized Calcium Urine WBC (Auto) 04/12/20 04/12/20 04/13/20 18:13 23:07 05:45 WBC RBC Hgb Hct MCV MCH RDW Plt Count Lymph % (Auto) [place] % (Auto) Eos % (Auto) Lymph # (Auto) [place] # (Auto) Eos # (Auto) Seg Neutrophils % Seg Neuts % (Manual) Lymphocytes % (Manual) Monocytes % (Manual) Basophils % (Manual) Seg Neutrophils # Seg Neutrophils # Man Lymphocytes # (Manual) Monocytes # (Manual) Eosinophils # (Manual) Basophils # (Manual) PT INR D-Dimer ABG pH POC ABG pCO2 POC ABG pO2 ABG pO2 ABG HCO3 ABG O2 Saturation ABG Base Excess ABG Hemoglobin ABG Oxyhemoglobin ABG Potassium ABG Glucose Oxyhemoglobin Carboxyhemoglobin Sodium Potassium Chloride Carbon Dioxide BUN Creatinine Glucose POC Glucose 107 H 106 H 125 H Calcium Ferritin Total Bilirubin Alkaline Phosphatase Lactate Dehydrogenase Total Creatine Kinase CK-MB (CK-2) Rel Index Troponin T C-Reactive Protein Total Protein Albumin Prealbumin LDL Cholesterol Direct HDL Cholesterol Arterial Blood Glucose Arterial Blood Ionized Calcium Urine WBC (Auto) 04/13/20 04/13/20 04/13/20 11:18 17:56 23:33 WBC RBC Hgb Hct MCV MCH RDW Plt Count Lymph % (Auto) [place] % (Auto) Eos % (Auto) Lymph # (Auto) [place] # (Auto) Eos # (Auto) Seg Neutrophils % Seg Neuts % (Manual) Lymphocytes % (Manual) Monocytes % (Manual) Basophils % (Manual) Seg Neutrophils # Seg Neutrophils # Man Lymphocytes # (Manual) Monocytes # (Manual) Eosinophils # (Manual) Basophils # (Manual) PT INR D-Dimer ABG pH POC ABG pCO2 POC ABG pO2 ABG pO2 ABG HCO3 ABG O2 Saturation ABG Base Excess ABG Hemoglobin ABG Oxyhemoglobin ABG Potassium ABG Glucose Oxyhemoglobin Carboxyhemoglobin Sodium Potassium Chloride Carbon Dioxide BUN Creatinine Glucose POC Glucose 133 H 110 H 114 H Calcium Ferritin Total Bilirubin Alkaline Phosphatase Lactate Dehydrogenase Total Creatine Kinase CK-MB (CK-2) Rel Index Troponin T C-Reactive Protein Total Protein Albumin Prealbumin LDL Cholesterol Direct HDL Cholesterol Arterial Blood Glucose Arterial Blood Ionized Calcium Urine WBC (Auto) 04/14/20 04/14/20 04/14/20 05:58 11:45 17:48 WBC RBC Hgb Hct MCV MCH RDW Plt Count Lymph % (Auto) [place] % (Auto) Eos % (Auto) Lymph # (Auto) [place] # (Auto) Eos # (Auto) Seg Neutrophils % Seg Neuts % (Manual) Lymphocytes % (Manual) Monocytes % (Manual) Basophils % (Manual) Seg Neutrophils # Seg Neutrophils # Man Lymphocytes # (Manual) Monocytes # (Manual) Eosinophils # (Manual) Basophils # (Manual) PT INR D-Dimer ABG pH POC ABG pCO2 POC ABG pO2 ABG pO2 ABG HCO3 ABG O2 Saturation ABG Base Excess ABG Hemoglobin ABG Oxyhemoglobin ABG Potassium ABG Glucose Oxyhemoglobin Carboxyhemoglobin Sodium Potassium Chloride Carbon Dioxide BUN Creatinine Glucose POC Glucose 115 H 122 H 124 H Calcium Ferritin Total Bilirubin Alkaline Phosphatase Lactate Dehydrogenase Total Creatine Kinase CK-MB (CK-2) Rel Index Troponin T C-Reactive Protein Total Protein Albumin Prealbumin LDL Cholesterol Direct HDL Cholesterol Arterial Blood Glucose Arterial Blood Ionized Calcium Urine WBC (Auto) 04/15/20 04/15/20 04/15/20 00:11 05:38 11:31 WBC RBC Hgb Hct MCV MCH RDW Plt Count Lymph % (Auto) [place] % (Auto) Eos % (Auto) Lymph # (Auto) [place] # (Auto) Eos # (Auto) Seg Neutrophils % Seg Neuts % (Manual) Lymphocytes % (Manual) Monocytes % (Manual) Basophils % (Manual) Seg Neutrophils # Seg Neutrophils # Man Lymphocytes # (Manual) Monocytes # (Manual) Eosinophils # (Manual) Basophils # (Manual) PT INR D-Dimer ABG pH POC ABG pCO2 POC ABG pO2 ABG pO2 ABG HCO3 ABG O2 Saturation ABG Base Excess ABG Hemoglobin ABG Oxyhemoglobin ABG Potassium ABG Glucose Oxyhemoglobin Carboxyhemoglobin Sodium Potassium Chloride Carbon Dioxide BUN Creatinine Glucose POC Glucose 120 H 109 H 123 H Calcium Ferritin Total Bilirubin Alkaline Phosphatase Lactate Dehydrogenase Total Creatine Kinase CK-MB (CK-2) Rel Index Troponin T C-Reactive Protein Total Protein Albumin Prealbumin LDL Cholesterol Direct HDL Cholesterol Arterial Blood Glucose Arterial Blood Ionized Calcium Urine WBC (Auto) 04/15/20 04/16/20 04/16/20 17:35 06:00 11:29 WBC RBC Hgb Hct MCV MCH RDW Plt Count Lymph % (Auto) [place] % (Auto) Eos % (Auto) Lymph # (Auto) [place] # (Auto) Eos # (Auto) Seg Neutrophils % Seg Neuts % (Manual) Lymphocytes % (Manual) Monocytes % (Manual) Basophils % (Manual) Seg Neutrophils # Seg Neutrophils # Man Lymphocytes # (Manual) Monocytes # (Manual) Eosinophils # (Manual) Basophils # (Manual) PT INR D-Dimer ABG pH POC ABG pCO2 POC ABG pO2 ABG pO2 ABG HCO3 ABG O2 Saturation ABG Base Excess ABG Hemoglobin ABG Oxyhemoglobin ABG Potassium ABG Glucose Oxyhemoglobin Carboxyhemoglobin Sodium Potassium Chloride Carbon Dioxide BUN Creatinine Glucose POC Glucose 111 H 142 H 108 H Calcium Ferritin Total Bilirubin Alkaline Phosphatase Lactate Dehydrogenase Total Creatine Kinase CK-MB (CK-2) Rel Index Troponin T C-Reactive Protein Total Protein Albumin Prealbumin LDL Cholesterol Direct HDL Cholesterol Arterial Blood Glucose Arterial Blood Ionized Calcium Urine WBC (Auto) 04/17/20 04/17/20 04/17/20 05:09 06:53 06:53 WBC 14.2 H RBC Hgb 10.1 L Hct 31.5 L MCV MCH 27 L RDW 17.2 H Plt Count 643 H Lymph % (Auto) [place] % (Auto) Eos % (Auto) Lymph # (Auto) [place] # (Auto) Eos # (Auto) Seg Neutrophils % Seg Neuts % (Manual) Lymphocytes % (Manual) Monocytes % (Manual) Basophils % (Manual) Seg Neutrophils # Seg Neutrophils # Man Lymphocytes # (Manual) Monocytes # (Manual) Eosinophils # (Manual) Basophils # (Manual) PT INR D-Dimer ABG pH POC ABG pCO2 POC ABG pO2 ABG pO2 ABG HCO3 ABG O2 Saturation ABG Base Excess ABG Hemoglobin ABG Oxyhemoglobin ABG Potassium ABG Glucose Oxyhemoglobin Carboxyhemoglobin Sodium Potassium Chloride 97.7 L Carbon Dioxide 38 H BUN Creatinine < 0.2 L Glucose 126 H POC Glucose 131 H Calcium Ferritin Total Bilirubin Alkaline Phosphatase Lactate Dehydrogenase Total Creatine Kinase CK-MB (CK-2) Rel Index Troponin T C-Reactive Protein Total Protein Albumin Prealbumin LDL Cholesterol Direct HDL Cholesterol Arterial Blood Glucose Arterial Blood Ionized Calcium Urine WBC (Auto) 04/17/20 04/18/20 04/18/20 11:21 00:23 04:01 WBC 15.3 H RBC Hgb 10.1 L Hct 31.9 L MCV 82 L MCH 26 L RDW 17.2 H Plt Count 665 H Lymph % (Auto) 12.9 L [place] % (Auto) Eos % (Auto) Lymph # (Auto) [place] # (Auto) 1.1 H Eos # (Auto) Seg Neutrophils % 78.0 H Seg Neuts % (Manual) Lymphocytes % (Manual) Monocytes % (Manual) Basophils % (Manual) Seg Neutrophils # 11.9 H Seg Neutrophils # Man Lymphocytes # (Manual) Monocytes # (Manual) Eosinophils # (Manual) Basophils # (Manual) PT INR D-Dimer ABG pH POC ABG pCO2 POC ABG pO2 ABG pO2 ABG HCO3 ABG O2 Saturation ABG Base Excess ABG Hemoglobin ABG Oxyhemoglobin ABG Potassium ABG Glucose Oxyhemoglobin Carboxyhemoglobin Sodium Potassium Chloride Carbon Dioxide BUN Creatinine Glucose POC Glucose 140 H 125 H Calcium Ferritin Total Bilirubin Alkaline Phosphatase Lactate Dehydrogenase Total Creatine Kinase CK-MB (CK-2) Rel Index Troponin T C-Reactive Protein Total Protein Albumin Prealbumin LDL Cholesterol Direct HDL Cholesterol Arterial Blood Glucose Arterial Blood Ionized Calcium Urine WBC (Auto) 04/18/20 04/18/20 04/18/20 04:01 11:29 17:30 WBC RBC Hgb Hct MCV MCH RDW Plt Count Lymph % (Auto) [place] % (Auto) Eos % (Auto) Lymph # (Auto) [place] # (Auto) Eos # (Auto) Seg Neutrophils % Seg Neuts % (Manual) Lymphocytes % (Manual) Monocytes % (Manual) Basophils % (Manual) Seg Neutrophils # Seg Neutrophils # Man Lymphocytes # (Manual) Monocytes # (Manual) Eosinophils # (Manual) Basophils # (Manual) PT INR D-Dimer ABG pH POC ABG pCO2 POC ABG pO2 ABG pO2 ABG HCO3 ABG O2 Saturation ABG Base Excess ABG Hemoglobin ABG Oxyhemoglobin ABG Potassium ABG Glucose Oxyhemoglobin Carboxyhemoglobin Sodium Potassium Chloride 97.0 L Carbon Dioxide 38 H BUN Creatinine < 0.2 L Glucose 117 H POC Glucose 136 H 107 H Calcium Ferritin Total Bilirubin Alkaline Phosphatase Lactate Dehydrogenase Total Creatine Kinase CK-MB (CK-2) Rel Index Troponin T C-Reactive Protein Total Protein Albumin Prealbumin LDL Cholesterol Direct HDL Cholesterol Arterial Blood Glucose Arterial Blood Ionized Calcium Urine WBC (Auto) 04/18/20 04/19/20 04/19/20 23:19 06:51 06:51 WBC 12.2 H RBC Hgb 9.8 L Hct 31.1 L MCV 82 L MCH 26 L RDW 17.2 H Plt Count 549 H Lymph % (Auto) 6.5 L [place] % (Auto) Eos % (Auto) Lymph # (Auto) 0.8 L [place] # (Auto) Eos # (Auto) Seg Neutrophils % 86.7 H Seg Neuts % (Manual) Lymphocytes % (Manual) Monocytes % (Manual) Basophils % (Manual) Seg Neutrophils # 10.6 H Seg Neutrophils # Man Lymphocytes # (Manual) Monocytes # (Manual) Eosinophils # (Manual) Basophils # (Manual) PT INR D-Dimer ABG pH POC ABG pCO2 POC ABG pO2 ABG pO2 ABG HCO3 ABG O2 Saturation ABG Base Excess ABG Hemoglobin ABG Oxyhemoglobin ABG Potassium ABG Glucose Oxyhemoglobin Carboxyhemoglobin Sodium Potassium Chloride 97.8 L Carbon Dioxide 38 H BUN Creatinine < 0.2 L Glucose 123 H POC Glucose 127 H Calcium Ferritin Total Bilirubin Alkaline Phosphatase Lactate Dehydrogenase Total Creatine Kinase CK-MB (CK-2) Rel Index Troponin T C-Reactive Protein Total Protein Albumin Prealbumin LDL Cholesterol Direct HDL Cholesterol Arterial Blood Glucose Arterial Blood Ionized Calcium Urine WBC (Auto) 04/19/20 04/19/20 04/20/20 13:41 18:33 05:56 WBC RBC Hgb Hct MCV MCH RDW Plt Count Lymph % (Auto) [place] % (Auto) Eos % (Auto) Lymph # (Auto) [place] # (Auto) Eos # (Auto) Seg Neutrophils % Seg Neuts % (Manual) Lymphocytes % (Manual) Monocytes % (Manual) Basophils % (Manual) Seg Neutrophils # Seg Neutrophils # Man Lymphocytes # (Manual) Monocytes # (Manual) Eosinophils # (Manual) Basophils # (Manual) PT INR D-Dimer ABG pH POC ABG pCO2 POC ABG pO2 ABG pO2 ABG HCO3 ABG O2 Saturation ABG Base Excess ABG Hemoglobin ABG Oxyhemoglobin ABG Potassium ABG Glucose Oxyhemoglobin Carboxyhemoglobin Sodium Potassium Chloride Carbon Dioxide BUN Creatinine Glucose POC Glucose 116 H 124 H 130 H Calcium Ferritin Total Bilirubin Alkaline Phosphatase Lactate Dehydrogenase Total Creatine Kinase CK-MB (CK-2) Rel Index Troponin T C-Reactive Protein Total Protein Albumin Prealbumin LDL Cholesterol Direct HDL Cholesterol Arterial Blood Glucose Arterial Blood Ionized Calcium Urine WBC (Auto) 04/20/20 04/20/20 04/20/20 06:28 06:28 11:46 WBC RBC Hgb 10.2 L Hct 31.5 L MCV 82 L MCH 27 L RDW 17.1 H Plt Count 546 H Lymph % (Auto) 10.0 L [place] % (Auto) 9.8 H Eos % (Auto) Lymph # (Auto) 1.1 L [place] # (Auto) 1.1 H Eos # (Auto) Seg Neutrophils % 78.4 H Seg Neuts % (Manual) Lymphocytes % (Manual) Monocytes % (Manual) Basophils % (Manual) Seg Neutrophils # 8.5 H Seg Neutrophils # Man Lymphocytes # (Manual) Monocytes # (Manual) Eosinophils # (Manual) Basophils # (Manual) PT INR D-Dimer ABG pH POC ABG pCO2 POC ABG pO2 ABG pO2 ABG HCO3 ABG O2 Saturation ABG Base Excess ABG Hemoglobin ABG Oxyhemoglobin ABG Potassium ABG Glucose Oxyhemoglobin Carboxyhemoglobin Sodium Potassium Chloride 97.0 L Carbon Dioxide 38 H BUN Creatinine < 0.2 L Glucose 138 H POC Glucose 130 H Calcium Ferritin Total Bilirubin Alkaline Phosphatase Lactate Dehydrogenase Total Creatine Kinase CK-MB (CK-2) Rel Index Troponin T C-Reactive Protein Total Protein Albumin Prealbumin LDL Cholesterol Direct HDL Cholesterol Arterial Blood Glucose Arterial Blood Ionized Calcium Urine WBC (Auto) 04/20/20 04/21/20 04/21/20 23:31 05:55 05:55 WBC RBC Hgb 10.0 L Hct 31.1 L MCV 82 L MCH 26 L RDW 17.0 H Plt Count 535 H Lymph % (Auto) [place] % (Auto) 9.2 H Eos % (Auto) Lymph # (Auto) 1.1 L [place] # (Auto) Eos # (Auto) Seg Neutrophils % 75.4 H Seg Neuts % (Manual) Lymphocytes % (Manual) Monocytes % (Manual) Basophils % (Manual) Seg Neutrophils # Seg Neutrophils # Man Lymphocytes # (Manual) Monocytes # (Manual) Eosinophils # (Manual) Basophils # (Manual) PT INR D-Dimer ABG pH POC ABG pCO2 POC ABG pO2 ABG pO2 ABG HCO3 ABG O2 Saturation ABG Base Excess ABG Hemoglobin ABG Oxyhemoglobin ABG Potassium ABG Glucose Oxyhemoglobin Carboxyhemoglobin Sodium Potassium Chloride 95.0 L Carbon Dioxide 34 H BUN Creatinine < 0.2 L Glucose 125 H POC Glucose 116 H Calcium Ferritin Total Bilirubin Alkaline Phosphatase Lactate Dehydrogenase Total Creatine Kinase CK-MB (CK-2) Rel Index Troponin T C-Reactive Protein Total Protein Albumin Prealbumin LDL Cholesterol Direct HDL Cholesterol Arterial Blood Glucose Arterial Blood Ionized Calcium Urine WBC (Auto) 04/22/20 04/22/20 04/22/20 00:01 07:45 07:45 WBC RBC Hgb 10.0 L Hct 30.7 L MCV 81 L MCH 27 L RDW 17.1 H Plt Count 490 H Lymph % (Auto) [place] % (Auto) Eos % (Auto) Lymph # (Auto) [place] # (Auto) Eos # (Auto) Seg Neutrophils % Seg Neuts % (Manual) 75.0 H Lymphocytes % (Manual) 11.0 L Monocytes % (Manual) 9.0 H Basophils % (Manual) Seg Neutrophils # Seg Neutrophils # Man Lymphocytes # (Manual) 0.8 L Monocytes # (Manual) Eosinophils # (Manual) Basophils # (Manual) PT INR D-Dimer ABG pH POC ABG pCO2 POC ABG pO2 ABG pO2 ABG HCO3 ABG O2 Saturation ABG Base Excess ABG Hemoglobin ABG Oxyhemoglobin ABG Potassium ABG Glucose Oxyhemoglobin Carboxyhemoglobin Sodium Potassium Chloride 96.3 L Carbon Dioxide 40 H BUN Creatinine < 0.2 L Glucose 109 H POC Glucose 110 H Calcium Ferritin Total Bilirubin Alkaline Phosphatase Lactate Dehydrogenase Total Creatine Kinase CK-MB (CK-2) Rel Index Troponin T C-Reactive Protein Total Protein Albumin Prealbumin LDL Cholesterol Direct HDL Cholesterol Arterial Blood Glucose Arterial Blood Ionized Calcium Urine WBC (Auto) 04/23/20 04/23/20 04/23/20 04:28 04:28 04:28 WBC RBC 3.64 L Hgb 9.7 L Hct 29.4 L MCV 81 L MCH 27 L RDW 17.2 H Plt Count 527 H Lymph % (Auto) [place] % (Auto) 8.9 H Eos % (Auto) Lymph # (Auto) [place] # (Auto) Eos # (Auto) Seg Neutrophils % Seg Neuts % (Manual) Lymphocytes % (Manual) Monocytes % (Manual) Basophils % (Manual) Seg Neutrophils # Seg Neutrophils # Man Lymphocytes # (Manual) Monocytes # (Manual) Eosinophils # (Manual) Basophils # (Manual) PT INR D-Dimer ABG pH POC ABG pCO2 POC ABG pO2 ABG pO2 ABG HCO3 ABG O2 Saturation ABG Base Excess ABG Hemoglobin ABG Oxyhemoglobin ABG Potassium ABG Glucose Oxyhemoglobin Carboxyhemoglobin Sodium Potassium Chloride 96.4 L Carbon Dioxide 32 H D BUN Creatinine < 0.2 L Glucose 134 H POC Glucose Calcium Ferritin Total Bilirubin Alkaline Phosphatase Lactate Dehydrogenase Total Creatine Kinase CK-MB (CK-2) Rel Index Troponin T 0.151 H* C-Reactive Protein Total Protein Albumin Prealbumin LDL Cholesterol Direct HDL Cholesterol 29 L Arterial Blood Glucose Arterial Blood Ionized Calcium Urine WBC (Auto) 04/23/20 04/23/20 04/24/20 06:03 23:41 05:28 WBC RBC 3.56 L Hgb 9.5 L Hct 28.9 L MCV 81 L MCH 27 L RDW 17.4 H Plt Count 462 H Lymph % (Auto) [place] % (Auto) Eos % (Auto) Lymph # (Auto) [place] # (Auto) Eos # (Auto) Seg Neutrophils % Seg Neuts % (Manual) 80.0 H Lymphocytes % (Manual) Monocytes % (Manual) Basophils % (Manual) Seg Neutrophils # Seg Neutrophils # Man Lymphocytes # (Manual) Monocytes # (Manual) Eosinophils # (Manual) Basophils # (Manual) PT INR D-Dimer ABG pH POC ABG pCO2 POC ABG pO2 ABG pO2 ABG HCO3 ABG O2 Saturation ABG Base Excess ABG Hemoglobin ABG Oxyhemoglobin ABG Potassium ABG Glucose Oxyhemoglobin Carboxyhemoglobin Sodium Potassium Chloride Carbon Dioxide BUN Creatinine Glucose POC Glucose 132 H 117 H Calcium Ferritin Total Bilirubin Alkaline Phosphatase Lactate Dehydrogenase Total Creatine Kinase CK-MB (CK-2) Rel Index Troponin T C-Reactive Protein Total Protein Albumin Prealbumin LDL Cholesterol Direct HDL Cholesterol Arterial Blood Glucose Arterial Blood Ionized Calcium Urine WBC (Auto) 04/24/20 04/24/20 04/24/20 05:28 05:28 05:33 WBC RBC Hgb Hct MCV MCH RDW Plt Count Lymph % (Auto) [place] % (Auto) Eos % (Auto) Lymph # (Auto) [place] # (Auto) Eos # (Auto) Seg Neutrophils % Seg Neuts % (Manual) Lymphocytes % (Manual) Monocytes % (Manual) Basophils % (Manual) Seg Neutrophils # Seg Neutrophils # Man Lymphocytes # (Manual) Monocytes # (Manual) Eosinophils # (Manual) Basophils # (Manual) PT INR D-Dimer ABG pH POC ABG pCO2 POC ABG pO2 ABG pO2 ABG HCO3 ABG O2 Saturation ABG Base Excess ABG Hemoglobin ABG Oxyhemoglobin ABG Potassium ABG Glucose Oxyhemoglobin Carboxyhemoglobin Sodium Potassium Chloride 96.1 L Carbon Dioxide 40 H D BUN Creatinine < 0.2 L Glucose 115 H POC Glucose 109 H Calcium Ferritin Total Bilirubin Alkaline Phosphatase Lactate Dehydrogenase Total Creatine Kinase CK-MB (CK-2) Rel Index Troponin T 0.181 H* C-Reactive Protein Total Protein Albumin Prealbumin LDL Cholesterol Direct HDL Cholesterol Arterial Blood Glucose Arterial Blood Ionized Calcium Urine WBC (Auto) 04/24/20 04/24/20 04/25/20 11:17 18:23 00:12 WBC RBC Hgb Hct MCV MCH RDW Plt Count Lymph % (Auto) [place] % (Auto) Eos % (Auto) Lymph # (Auto) [place] # (Auto) Eos # (Auto) Seg Neutrophils % Seg Neuts % (Manual) Lymphocytes % (Manual) Monocytes % (Manual) Basophils % (Manual) Seg Neutrophils # Seg Neutrophils # Man Lymphocytes # (Manual) Monocytes # (Manual) Eosinophils # (Manual) Basophils # (Manual) PT INR D-Dimer ABG pH POC ABG pCO2 POC ABG pO2 ABG pO2 ABG HCO3 ABG O2 Saturation ABG Base Excess ABG Hemoglobin ABG Oxyhemoglobin ABG Potassium ABG Glucose Oxyhemoglobin Carboxyhemoglobin Sodium Potassium Chloride Carbon Dioxide BUN Creatinine Glucose POC Glucose 117 H 109 H 113 H Calcium Ferritin Total Bilirubin Alkaline Phosphatase Lactate Dehydrogenase Total Creatine Kinase CK-MB (CK-2) Rel Index Troponin T C-Reactive Protein Total Protein Albumin Prealbumin LDL Cholesterol Direct HDL Cholesterol Arterial Blood Glucose Arterial Blood Ionized Calcium Urine WBC (Auto) 04/25/20 04/25/20 04/25/20 06:34 06:34 11:28 WBC 11.7 H RBC Hgb 10.0 L Hct 31.7 L MCV 82 L MCH 26 L RDW 17.5 H Plt Count 564 H Lymph % (Auto) [place] % (Auto) Eos % (Auto) Lymph # (Auto) [place] # (Auto) Eos # (Auto) Seg Neutrophils % Seg Neuts % (Manual) 78.0 H Lymphocytes % (Manual) 10.0 L Monocytes % (Manual) 9.0 H Basophils % (Manual) Seg Neutrophils # Seg Neutrophils # Man 9.1 H Lymphocytes # (Manual) Monocytes # (Manual) 1.1 H Eosinophils # (Manual) Basophils # (Manual) PT INR D-Dimer ABG pH POC ABG pCO2 POC ABG pO2 ABG pO2 ABG HCO3 ABG O2 Saturation ABG Base Excess ABG Hemoglobin ABG Oxyhemoglobin ABG Potassium ABG Glucose Oxyhemoglobin Carboxyhemoglobin Sodium Potassium Chloride Carbon Dioxide 39 H BUN Creatinine < 0.2 L Glucose 103 H POC Glucose 112 H Calcium Ferritin Total Bilirubin Alkaline Phosphatase Lactate Dehydrogenase Total Creatine Kinase CK-MB (CK-2) Rel Index Troponin T C-Reactive Protein Total Protein Albumin Prealbumin LDL Cholesterol Direct HDL Cholesterol Arterial Blood Glucose Arterial Blood Ionized Calcium Urine WBC (Auto) 04/27/20 04/27/20 04/27/20 11:48 17:08 23:31 WBC RBC Hgb Hct MCV MCH RDW Plt Count Lymph % (Auto) [place] % (Auto) Eos % (Auto) Lymph # (Auto) [place] # (Auto) Eos # (Auto) Seg Neutrophils % Seg Neuts % (Manual) Lymphocytes % (Manual) Monocytes % (Manual) Basophils % (Manual) Seg Neutrophils # Seg Neutrophils # Man Lymphocytes # (Manual) Monocytes # (Manual) Eosinophils # (Manual) Basophils # (Manual) PT INR D-Dimer ABG pH POC ABG pCO2 POC ABG pO2 ABG pO2 ABG HCO3 ABG O2 Saturation ABG Base Excess ABG Hemoglobin ABG Oxyhemoglobin ABG Potassium ABG Glucose Oxyhemoglobin Carboxyhemoglobin Sodium Potassium Chloride Carbon Dioxide BUN Creatinine Glucose POC Glucose 124 H 118 H 122 H Calcium Ferritin Total Bilirubin Alkaline Phosphatase Lactate Dehydrogenase Total Creatine Kinase CK-MB (CK-2) Rel Index Troponin T C-Reactive Protein Total Protein Albumin Prealbumin LDL Cholesterol Direct HDL Cholesterol Arterial Blood Glucose Arterial Blood Ionized Calcium Urine WBC (Auto) 04/28/20 04/29/20 04/29/20 05:42 00:14 05:30 WBC RBC Hgb Hct MCV MCH RDW Plt Count Lymph % (Auto) [place] % (Auto) Eos % (Auto) Lymph # (Auto) [place] # (Auto) Eos # (Auto) Seg Neutrophils % Seg Neuts % (Manual) Lymphocytes % (Manual) Monocytes % (Manual) Basophils % (Manual) Seg Neutrophils # Seg Neutrophils # Man Lymphocytes # (Manual) Monocytes # (Manual) Eosinophils # (Manual) Basophils # (Manual) PT INR D-Dimer ABG pH POC ABG pCO2 POC ABG pO2 ABG pO2 ABG HCO3 ABG O2 Saturation ABG Base Excess ABG Hemoglobin ABG Oxyhemoglobin ABG Potassium ABG Glucose Oxyhemoglobin Carboxyhemoglobin Sodium Potassium Chloride Carbon Dioxide BUN Creatinine Glucose POC Glucose 122 H 115 H 123 H Calcium Ferritin Total Bilirubin Alkaline Phosphatase Lactate Dehydrogenase Total Creatine Kinase CK-MB (CK-2) Rel Index Troponin T C-Reactive Protein Total Protein Albumin Prealbumin LDL Cholesterol Direct HDL Cholesterol Arterial Blood Glucose Arterial Blood Ionized Calcium Urine WBC (Auto) 04/30/20 05/01/20 05/01/20 00:29 05:39 12:30 WBC RBC Hgb Hct MCV MCH RDW Plt Count Lymph % (Auto) [place] % (Auto) Eos % (Auto) Lymph # (Auto) [place] # (Auto) Eos # (Auto) Seg Neutrophils % Seg Neuts % (Manual) Lymphocytes % (Manual) Monocytes % (Manual) Basophils % (Manual) Seg Neutrophils # Seg Neutrophils # Man Lymphocytes # (Manual) Monocytes # (Manual) Eosinophils # (Manual) Basophils # (Manual) PT INR D-Dimer ABG pH POC ABG pCO2 POC ABG pO2 ABG pO2 ABG HCO3 ABG O2 Saturation ABG Base Excess ABG Hemoglobin ABG Oxyhemoglobin ABG Potassium ABG Glucose Oxyhemoglobin Carboxyhemoglobin Sodium Potassium Chloride Carbon Dioxide BUN Creatinine Glucose POC Glucose 106 H 109 H 108 H Calcium Ferritin Total Bilirubin Alkaline Phosphatase Lactate Dehydrogenase Total Creatine Kinase CK-MB (CK-2) Rel Index Troponin T C-Reactive Protein Total Protein Albumin Prealbumin LDL Cholesterol Direct HDL Cholesterol Arterial Blood Glucose Arterial Blood Ionized Calcium Urine WBC (Auto) 05/01/20 05/03/20 05/03/20 23:35 05:09 11:36 WBC RBC Hgb Hct MCV MCH RDW Plt Count Lymph % (Auto) [place] % (Auto) Eos % (Auto) Lymph # (Auto) [place] # (Auto) Eos # (Auto) Seg Neutrophils % Seg Neuts % (Manual) Lymphocytes % (Manual) Monocytes % (Manual) Basophils % (Manual) Seg Neutrophils # Seg Neutrophils # Man Lymphocytes # (Manual) Monocytes # (Manual) Eosinophils # (Manual) Basophils # (Manual) PT INR D-Dimer ABG pH POC ABG pCO2 POC ABG pO2 ABG pO2 ABG HCO3 ABG O2 Saturation ABG Base Excess ABG Hemoglobin ABG Oxyhemoglobin ABG Potassium ABG Glucose Oxyhemoglobin Carboxyhemoglobin Sodium Potassium Chloride Carbon Dioxide BUN Creatinine Glucose POC Glucose 116 H 117 H 116 H Calcium Ferritin Total Bilirubin Alkaline Phosphatase Lactate Dehydrogenase Total Creatine Kinase CK-MB (CK-2) Rel Index Troponin T C-Reactive Protein Total Protein Albumin Prealbumin LDL Cholesterol Direct HDL Cholesterol Arterial Blood Glucose Arterial Blood Ionized Calcium Urine WBC (Auto) 05/03/20 05/03/20 05/03/20 14:06 14:06 23:39 WBC 12.5 H RBC Hgb 10.0 L Hct 31.2 L MCV 80 L MCH 26 L RDW 17.6 H Plt Count 488 H Lymph % (Auto) [place] % (Auto) Eos % (Auto) Lymph # (Auto) [place] # (Auto) Eos # (Auto) Seg Neutrophils % Seg Neuts % (Manual) Lymphocytes % (Manual) Monocytes % (Manual) Basophils % (Manual) Seg Neutrophils # Seg Neutrophils # Man Lymphocytes # (Manual) Monocytes # (Manual) Eosinophils # (Manual) Basophils # (Manual) PT INR D-Dimer ABG pH POC ABG pCO2 POC ABG pO2 ABG pO2 ABG HCO3 ABG O2 Saturation ABG Base Excess ABG Hemoglobin ABG Oxyhemoglobin ABG Potassium ABG Glucose Oxyhemoglobin Carboxyhemoglobin Sodium Potassium Chloride 95.4 L Carbon Dioxide 40 H BUN Creatinine < 0.2 L Glucose 121 H POC Glucose 107 H Calcium Ferritin Total Bilirubin Alkaline Phosphatase Lactate Dehydrogenase Total Creatine Kinase CK-MB (CK-2) Rel Index Troponin T C-Reactive Protein Total Protein Albumin Prealbumin LDL Cholesterol Direct HDL Cholesterol Arterial Blood Glucose Arterial Blood Ionized Calcium Urine WBC (Auto) 05/04/20 05/04/20 05/04/20 11:31 16:57 23:18 WBC RBC Hgb Hct MCV MCH RDW Plt Count Lymph % (Auto) [place] % (Auto) Eos % (Auto) Lymph # (Auto) [place] # (Auto) Eos # (Auto) Seg Neutrophils % Seg Neuts % (Manual) Lymphocytes % (Manual) Monocytes % (Manual) Basophils % (Manual) Seg Neutrophils # Seg Neutrophils # Man Lymphocytes # (Manual) Monocytes # (Manual) Eosinophils # (Manual) Basophils # (Manual) PT INR D-Dimer ABG pH POC ABG pCO2 POC ABG pO2 ABG pO2 ABG HCO3 ABG O2 Saturation ABG Base Excess ABG Hemoglobin ABG Oxyhemoglobin ABG Potassium ABG Glucose Oxyhemoglobin Carboxyhemoglobin Sodium Potassium Chloride Carbon Dioxide BUN Creatinine Glucose POC Glucose 113 H 126 H 126 H Calcium Ferritin Total Bilirubin Alkaline Phosphatase Lactate Dehydrogenase Total Creatine Kinase CK-MB (CK-2) Rel Index Troponin T C-Reactive Protein Total Protein Albumin Prealbumin LDL Cholesterol Direct HDL Cholesterol Arterial Blood Glucose Arterial Blood Ionized Calcium Urine WBC (Auto) 05/05/20 05/05/20 05/05/20 05:32 11:11 23:57 WBC RBC Hgb Hct MCV MCH RDW Plt Count Lymph % (Auto) [place] % (Auto) Eos % (Auto) Lymph # (Auto) [place] # (Auto) Eos # (Auto) Seg Neutrophils % Seg Neuts % (Manual) Lymphocytes % (Manual) Monocytes % (Manual) Basophils % (Manual) Seg Neutrophils # Seg Neutrophils # Man Lymphocytes # (Manual) Monocytes # (Manual) Eosinophils # (Manual) Basophils # (Manual) PT INR D-Dimer ABG pH POC ABG pCO2 POC ABG pO2 ABG pO2 ABG HCO3 ABG O2 Saturation ABG Base Excess ABG Hemoglobin ABG Oxyhemoglobin ABG Potassium ABG Glucose Oxyhemoglobin Carboxyhemoglobin Sodium Potassium Chloride Carbon Dioxide BUN Creatinine Glucose POC Glucose 109 H 124 H 119 H Calcium Ferritin Total Bilirubin Alkaline Phosphatase Lactate Dehydrogenase Total Creatine Kinase CK-MB (CK-2) Rel Index Troponin T C-Reactive Protein Total Protein Albumin Prealbumin LDL Cholesterol Direct HDL Cholesterol Arterial Blood Glucose Arterial Blood Ionized Calcium Urine WBC (Auto) 05/06/20 05/06/20 05/07/20 05:34 23:08 04:43 WBC RBC Hgb 10.1 L Hct 31.9 L MCV 81 L MCH 25 L RDW 17.6 H Plt Count 506 H Lymph % (Auto) [place] % (Auto) 8.6 H Eos % (Auto) Lymph # (Auto) [place] # (Auto) 0.9 H Eos # (Auto) Seg Neutrophils % Seg Neuts % (Manual) Lymphocytes % (Manual) Monocytes % (Manual) Basophils % (Manual) Seg Neutrophils # Seg Neutrophils # Man Lymphocytes # (Manual) Monocytes # (Manual) Eosinophils # (Manual) Basophils # (Manual) PT INR D-Dimer ABG pH POC ABG pCO2 POC ABG pO2 ABG pO2 ABG HCO3 ABG O2 Saturation ABG Base Excess ABG Hemoglobin ABG Oxyhemoglobin ABG Potassium ABG Glucose Oxyhemoglobin Carboxyhemoglobin Sodium Potassium Chloride Carbon Dioxide BUN Creatinine Glucose POC Glucose 121 H 107 H Calcium Ferritin Total Bilirubin Alkaline Phosphatase Lactate Dehydrogenase Total Creatine Kinase CK-MB (CK-2) Rel Index Troponin T C-Reactive Protein Total Protein Albumin Prealbumin LDL Cholesterol Direct HDL Cholesterol Arterial Blood Glucose Arterial Blood Ionized Calcium Urine WBC (Auto) 05/07/20 05/07/20 05/07/20 06:18 17:13 23:29 WBC RBC Hgb Hct MCV MCH RDW Plt Count Lymph % (Auto) [place] % (Auto) Eos % (Auto) Lymph # (Auto) [place] # (Auto) Eos # (Auto) Seg Neutrophils % Seg Neuts % (Manual) Lymphocytes % (Manual) Monocytes % (Manual) Basophils % (Manual) Seg Neutrophils # Seg Neutrophils # Man Lymphocytes # (Manual) Monocytes # (Manual) Eosinophils # (Manual) Basophils # (Manual) PT INR D-Dimer ABG pH POC ABG pCO2 POC ABG pO2 ABG pO2 ABG HCO3 ABG O2 Saturation ABG Base Excess ABG Hemoglobin ABG Oxyhemoglobin ABG Potassium ABG Glucose Oxyhemoglobin Carboxyhemoglobin Sodium Potassium Chloride Carbon Dioxide BUN Creatinine Glucose POC Glucose 121 H 122 H 114 H Calcium Ferritin Total Bilirubin Alkaline Phosphatase Lactate Dehydrogenase Total Creatine Kinase CK-MB (CK-2) Rel Index Troponin T C-Reactive Protein Total Protein Albumin Prealbumin LDL Cholesterol Direct HDL Cholesterol Arterial Blood Glucose Arterial Blood Ionized Calcium Urine WBC (Auto) 05/08/20 05/08/20 05/08/20 05:20 11:57 23:42 WBC RBC Hgb Hct MCV MCH RDW Plt Count Lymph % (Auto) [place] % (Auto) Eos % (Auto) Lymph # (Auto) [place] # (Auto) Eos # (Auto) Seg Neutrophils % Seg Neuts % (Manual) Lymphocytes % (Manual) Monocytes % (Manual) Basophils % (Manual) Seg Neutrophils # Seg Neutrophils # Man Lymphocytes # (Manual) Monocytes # (Manual) Eosinophils # (Manual) Basophils # (Manual) PT INR D-Dimer ABG pH POC ABG pCO2 POC ABG pO2 ABG pO2 ABG HCO3 ABG O2 Saturation ABG Base Excess ABG Hemoglobin ABG Oxyhemoglobin ABG Potassium ABG Glucose Oxyhemoglobin Carboxyhemoglobin Sodium Potassium Chloride Carbon Dioxide BUN Creatinine Glucose POC Glucose 121 H 113 H 135 H Calcium Ferritin Total Bilirubin Alkaline Phosphatase Lactate Dehydrogenase Total Creatine Kinase CK-MB (CK-2) Rel Index Troponin T C-Reactive Protein Total Protein Albumin Prealbumin LDL Cholesterol Direct HDL Cholesterol Arterial Blood Glucose Arterial Blood Ionized Calcium Urine WBC (Auto) 05/09/20 05/09/20 05/09/20 05:31 11:11 16:06 WBC RBC Hgb Hct MCV MCH RDW Plt Count Lymph % (Auto) [place] % (Auto) Eos % (Auto) Lymph # (Auto) [place] # (Auto) Eos # (Auto) Seg Neutrophils % Seg Neuts % (Manual) Lymphocytes % (Manual) Monocytes % (Manual) Basophils % (Manual) Seg Neutrophils # Seg Neutrophils # Man Lymphocytes # (Manual) Monocytes # (Manual) Eosinophils # (Manual) Basophils # (Manual) PT INR D-Dimer ABG pH POC ABG pCO2 POC ABG pO2 ABG pO2 ABG HCO3 ABG O2 Saturation ABG Base Excess ABG Hemoglobin ABG Oxyhemoglobin ABG Potassium ABG Glucose Oxyhemoglobin Carboxyhemoglobin Sodium 136 L Potassium Chloride 97.0 L Carbon Dioxide 34 H BUN Creatinine < 0.2 L Glucose 107 H POC Glucose 66 L 127 H Calcium Ferritin Total Bilirubin Alkaline Phosphatase Lactate Dehydrogenase Total Creatine Kinase CK-MB (CK-2) Rel Index Troponin T C-Reactive Protein Total Protein Albumin Prealbumin LDL Cholesterol Direct HDL Cholesterol Arterial Blood Glucose Arterial Blood Ionized Calcium Urine WBC (Auto) 05/09/20 05/10/20 05/10/20 23:19 04:59 11:28 WBC RBC Hgb Hct MCV MCH RDW Plt Count Lymph % (Auto) [place] % (Auto) Eos % (Auto) Lymph # (Auto) [place] # (Auto) Eos # (Auto) Seg Neutrophils % Seg Neuts % (Manual) Lymphocytes % (Manual) Monocytes % (Manual) Basophils % (Manual) Seg Neutrophils # Seg Neutrophils # Man Lymphocytes # (Manual) Monocytes # (Manual) Eosinophils # (Manual) Basophils # (Manual) PT INR D-Dimer ABG pH POC ABG pCO2 POC ABG pO2 ABG pO2 ABG HCO3 ABG O2 Saturation ABG Base Excess ABG Hemoglobin ABG Oxyhemoglobin ABG Potassium ABG Glucose Oxyhemoglobin Carboxyhemoglobin Sodium Potassium Chloride Carbon Dioxide BUN Creatinine Glucose POC Glucose 108 H 126 H 124 H Calcium Ferritin Total Bilirubin Alkaline Phosphatase Lactate Dehydrogenase Total Creatine Kinase CK-MB (CK-2) Rel Index Troponin T C-Reactive Protein Total Protein Albumin Prealbumin LDL Cholesterol Direct HDL Cholesterol Arterial Blood Glucose Arterial Blood Ionized Calcium Urine WBC (Auto) 05/10/20 05/11/20 05/11/20 23:56 06:13 11:44 WBC RBC Hgb Hct MCV MCH RDW Plt Count Lymph % (Auto) [place] % (Auto) Eos % (Auto) Lymph # (Auto) [place] # (Auto) Eos # (Auto) Seg Neutrophils % Seg Neuts % (Manual) Lymphocytes % (Manual) Monocytes % (Manual) Basophils % (Manual) Seg Neutrophils # Seg Neutrophils # Man Lymphocytes # (Manual) Monocytes # (Manual) Eosinophils # (Manual) Basophils # (Manual) PT INR D-Dimer ABG pH POC ABG pCO2 POC ABG pO2 ABG pO2 ABG HCO3 ABG O2 Saturation ABG Base Excess ABG Hemoglobin ABG Oxyhemoglobin ABG Potassium ABG Glucose Oxyhemoglobin Carboxyhemoglobin Sodium Potassium Chloride Carbon Dioxide BUN Creatinine Glucose POC Glucose 113 H 124 H 125 H Calcium Ferritin Total Bilirubin Alkaline Phosphatase Lactate Dehydrogenase Total Creatine Kinase CK-MB (CK-2) Rel Index Troponin T C-Reactive Protein Total Protein Albumin Prealbumin LDL Cholesterol Direct HDL Cholesterol Arterial Blood Glucose Arterial Blood Ionized Calcium Urine WBC (Auto) 05/12/20 05/12/20 05/12/20 06:04 12:17 17:23 WBC RBC Hgb Hct MCV MCH RDW Plt Count Lymph % (Auto) [place] % (Auto) Eos % (Auto) Lymph # (Auto) [place] # (Auto) Eos # (Auto) Seg Neutrophils % Seg Neuts % (Manual) Lymphocytes % (Manual) Monocytes % (Manual) Basophils % (Manual) Seg Neutrophils # Seg Neutrophils # Man Lymphocytes # (Manual) Monocytes # (Manual) Eosinophils # (Manual) Basophils # (Manual) PT INR D-Dimer ABG pH POC ABG pCO2 POC ABG pO2 ABG pO2 ABG HCO3 ABG O2 Saturation ABG Base Excess ABG Hemoglobin ABG Oxyhemoglobin ABG Potassium ABG Glucose Oxyhemoglobin Carboxyhemoglobin Sodium Potassium Chloride Carbon Dioxide BUN Creatinine Glucose POC Glucose 135 H 136 H 133 H Calcium Ferritin Total Bilirubin Alkaline Phosphatase Lactate Dehydrogenase Total Creatine Kinase CK-MB (CK-2) Rel Index Troponin T C-Reactive Protein Total Protein Albumin Prealbumin LDL Cholesterol Direct HDL Cholesterol Arterial Blood Glucose Arterial Blood Ionized Calcium Urine WBC (Auto) 05/12/20 05/13/20 05/13/20 23:34 05:36 11:25 WBC RBC Hgb Hct MCV MCH RDW Plt Count Lymph % (Auto) [place] % (Auto) Eos % (Auto) Lymph # (Auto) [place] # (Auto) Eos # (Auto) Seg Neutrophils % Seg Neuts % (Manual) Lymphocytes % (Manual) Monocytes % (Manual) Basophils % (Manual) Seg Neutrophils # Seg Neutrophils # Man Lymphocytes # (Manual) Monocytes # (Manual) Eosinophils # (Manual) Basophils # (Manual) PT INR D-Dimer ABG pH POC ABG pCO2 POC ABG pO2 ABG pO2 ABG HCO3 ABG O2 Saturation ABG Base Excess ABG Hemoglobin ABG Oxyhemoglobin ABG Potassium ABG Glucose Oxyhemoglobin Carboxyhemoglobin Sodium Potassium Chloride Carbon Dioxide BUN Creatinine Glucose POC Glucose 141 H 131 H 148 H Calcium Ferritin Total Bilirubin Alkaline Phosphatase Lactate Dehydrogenase Total Creatine Kinase CK-MB (CK-2) Rel Index Troponin T C-Reactive Protein Total Protein Albumin Prealbumin LDL Cholesterol Direct HDL Cholesterol Arterial Blood Glucose Arterial Blood Ionized Calcium Urine WBC (Auto) 05/13/20 05/14/20 05/14/20 16:40 00:11 05:03 WBC RBC Hgb Hct MCV MCH RDW Plt Count Lymph % (Auto) [place] % (Auto) Eos % (Auto) Lymph # (Auto) [place] # (Auto) Eos # (Auto) Seg Neutrophils % Seg Neuts % (Manual) Lymphocytes % (Manual) Monocytes % (Manual) Basophils % (Manual) Seg Neutrophils # Seg Neutrophils # Man Lymphocytes # (Manual) Monocytes # (Manual) Eosinophils # (Manual) Basophils # (Manual) PT INR D-Dimer ABG pH POC ABG pCO2 POC ABG pO2 ABG pO2 ABG HCO3 ABG O2 Saturation ABG Base Excess ABG Hemoglobin ABG Oxyhemoglobin ABG Potassium ABG Glucose Oxyhemoglobin Carboxyhemoglobin Sodium Potassium Chloride Carbon Dioxide BUN Creatinine Glucose POC Glucose 118 H 128 H 129 H Calcium Ferritin Total Bilirubin Alkaline Phosphatase Lactate Dehydrogenase Total Creatine Kinase CK-MB (CK-2) Rel Index Troponin T C-Reactive Protein Total Protein Albumin Prealbumin LDL Cholesterol Direct HDL Cholesterol Arterial Blood Glucose Arterial Blood Ionized Calcium Urine WBC (Auto) 05/14/20 05/15/20 05/16/20 11:38 23:46 05:20 WBC RBC Hgb Hct MCV MCH RDW Plt Count Lymph % (Auto) [place] % (Auto) Eos % (Auto) Lymph # (Auto) [place] # (Auto) Eos # (Auto) Seg Neutrophils % Seg Neuts % (Manual) Lymphocytes % (Manual) Monocytes % (Manual) Basophils % (Manual) Seg Neutrophils # Seg Neutrophils # Man Lymphocytes # (Manual) Monocytes # (Manual) Eosinophils # (Manual) Basophils # (Manual) PT INR D-Dimer ABG pH POC ABG pCO2 POC ABG pO2 ABG pO2 ABG HCO3 ABG O2 Saturation ABG Base Excess ABG Hemoglobin ABG Oxyhemoglobin ABG Potassium ABG Glucose Oxyhemoglobin Carboxyhemoglobin Sodium Potassium Chloride Carbon Dioxide BUN Creatinine Glucose POC Glucose 134 H 107 H 122 H Calcium Ferritin Total Bilirubin Alkaline Phosphatase Lactate Dehydrogenase Total Creatine Kinase CK-MB (CK-2) Rel Index Troponin T C-Reactive Protein Total Protein Albumin Prealbumin LDL Cholesterol Direct HDL Cholesterol Arterial Blood Glucose Arterial Blood Ionized Calcium Urine WBC (Auto) 05/16/20 05/16/20 05/18/20 11:57 23:51 11:18 WBC RBC Hgb Hct MCV MCH RDW Plt Count Lymph % (Auto) [place] % (Auto) Eos % (Auto) Lymph # (Auto) [place] # (Auto) Eos # (Auto) Seg Neutrophils % Seg Neuts % (Manual) Lymphocytes % (Manual) Monocytes % (Manual) Basophils % (Manual) Seg Neutrophils # Seg Neutrophils # Man Lymphocytes # (Manual) Monocytes # (Manual) Eosinophils # (Manual) Basophils # (Manual) PT INR D-Dimer ABG pH POC ABG pCO2 POC ABG pO2 ABG pO2 ABG HCO3 ABG O2 Saturation ABG Base Excess ABG Hemoglobin ABG Oxyhemoglobin ABG Potassium ABG Glucose Oxyhemoglobin Carboxyhemoglobin Sodium Potassium Chloride Carbon Dioxide BUN Creatinine Glucose POC Glucose 108 H 111 H 115 H Calcium Ferritin Total Bilirubin Alkaline Phosphatase Lactate Dehydrogenase Total Creatine Kinase CK-MB (CK-2) Rel Index Troponin T C-Reactive Protein Total Protein Albumin Prealbumin LDL Cholesterol Direct HDL Cholesterol Arterial Blood Glucose Arterial Blood Ionized Calcium Urine WBC (Auto) 05/18/20 05/18/20 05/19/20 16:18 23:38 05:07 WBC RBC Hgb Hct MCV MCH RDW Plt Count Lymph % (Auto) [place] % (Auto) Eos % (Auto) Lymph # (Auto) [place] # (Auto) Eos # (Auto) Seg Neutrophils % Seg Neuts % (Manual) Lymphocytes % (Manual) Monocytes % (Manual) Basophils % (Manual) Seg Neutrophils # Seg Neutrophils # Man Lymphocytes # (Manual) Monocytes # (Manual) Eosinophils # (Manual) Basophils # (Manual) PT INR D-Dimer ABG pH POC ABG pCO2 POC ABG pO2 ABG pO2 ABG HCO3 ABG O2 Saturation ABG Base Excess ABG Hemoglobin ABG Oxyhemoglobin ABG Potassium ABG Glucose Oxyhemoglobin Carboxyhemoglobin Sodium Potassium Chloride Carbon Dioxide BUN Creatinine Glucose POC Glucose 110 H 128 H 121 H Calcium Ferritin Total Bilirubin Alkaline Phosphatase Lactate Dehydrogenase Total Creatine Kinase CK-MB (CK-2) Rel Index Troponin T C-Reactive Protein Total Protein Albumin Prealbumin LDL Cholesterol Direct HDL Cholesterol Arterial Blood Glucose Arterial Blood Ionized Calcium Urine WBC (Auto) 05/19/20 05/19/20 05/19/20 11:36 16:49 23:17 WBC RBC Hgb Hct MCV MCH RDW Plt Count Lymph % (Auto) [place] % (Auto) Eos % (Auto) Lymph # (Auto) [place] # (Auto) Eos # (Auto) Seg Neutrophils % Seg Neuts % (Manual) Lymphocytes % (Manual) Monocytes % (Manual) Basophils % (Manual) Seg Neutrophils # Seg Neutrophils # Man Lymphocytes # (Manual) Monocytes # (Manual) Eosinophils # (Manual) Basophils # (Manual) PT INR D-Dimer ABG pH POC ABG pCO2 POC ABG pO2 ABG pO2 ABG HCO3 ABG O2 Saturation ABG Base Excess ABG Hemoglobin ABG Oxyhemoglobin ABG Potassium ABG Glucose Oxyhemoglobin Carboxyhemoglobin Sodium Potassium Chloride Carbon Dioxide BUN Creatinine Glucose POC Glucose 120 H 110 H 122 H Calcium Ferritin Total Bilirubin Alkaline Phosphatase Lactate Dehydrogenase Total Creatine Kinase CK-MB (CK-2) Rel Index Troponin T C-Reactive Protein Total Protein Albumin Prealbumin LDL Cholesterol Direct HDL Cholesterol Arterial Blood Glucose Arterial Blood Ionized Calcium Urine WBC (Auto) 05/20/20 05/20/20 05/21/20 05:17 23:55 04:18 WBC RBC Hgb 11.2 L Hct 35.4 L MCV 81 L MCH 25 L RDW 18.2 H Plt Count 458 H Lymph % (Auto) [place] % (Auto) 8.8 H Eos % (Auto) 7.2 H Lymph # (Auto) [place] # (Auto) Eos # (Auto) 0.6 H Seg Neutrophils % Seg Neuts % (Manual) Lymphocytes % (Manual) Monocytes % (Manual) Basophils % (Manual) Seg Neutrophils # Seg Neutrophils # Man Lymphocytes # (Manual) Monocytes # (Manual) Eosinophils # (Manual) Basophils # (Manual) PT INR D-Dimer ABG pH POC ABG pCO2 POC ABG pO2 ABG pO2 ABG HCO3 ABG O2 Saturation ABG Base Excess ABG Hemoglobin ABG Oxyhemoglobin ABG Potassium ABG Glucose Oxyhemoglobin Carboxyhemoglobin Sodium Potassium Chloride Carbon Dioxide BUN Creatinine Glucose POC Glucose 133 H 128 H Calcium Ferritin Total Bilirubin Alkaline Phosphatase Lactate Dehydrogenase Total Creatine Kinase CK-MB (CK-2) Rel Index Troponin T C-Reactive Protein Total Protein Albumin Prealbumin LDL Cholesterol Direct HDL Cholesterol Arterial Blood Glucose Arterial Blood Ionized Calcium Urine WBC (Auto) 05/21/20 05/21/20 05/21/20 04:18 05:02 23:53 WBC RBC Hgb Hct MCV MCH RDW Plt Count Lymph % (Auto) [place] % (Auto) Eos % (Auto) Lymph # (Auto) [place] # (Auto) Eos # (Auto) Seg Neutrophils % Seg Neuts % (Manual) Lymphocytes % (Manual) Monocytes % (Manual) Basophils % (Manual) Seg Neutrophils # Seg Neutrophils # Man Lymphocytes # (Manual) Monocytes # (Manual) Eosinophils # (Manual) Basophils # (Manual) PT INR D-Dimer ABG pH POC ABG pCO2 POC ABG pO2 ABG pO2 ABG HCO3 ABG O2 Saturation ABG Base Excess ABG Hemoglobin ABG Oxyhemoglobin ABG Potassium ABG Glucose Oxyhemoglobin Carboxyhemoglobin Sodium Potassium Chloride 97.2 L Carbon Dioxide 35 H BUN Creatinine < 0.2 L Glucose 128 H POC Glucose 125 H 114 H Calcium Ferritin Total Bilirubin Alkaline Phosphatase Lactate Dehydrogenase Total Creatine Kinase CK-MB (CK-2) Rel Index Troponin T C-Reactive Protein Total Protein Albumin Prealbumin LDL Cholesterol Direct HDL Cholesterol Arterial Blood Glucose Arterial Blood Ionized Calcium Urine WBC (Auto) 05/22/20 05/22/20 05:21 11:35 WBC RBC Hgb Hct MCV MCH RDW Plt Count Lymph % (Auto) [place] % (Auto) Eos % (Auto) Lymph # (Auto) [place] # (Auto) Eos # (Auto) Seg Neutrophils % Seg Neuts % (Manual) Lymphocytes % (Manual) Monocytes % (Manual) Basophils % (Manual) Seg Neutrophils # Seg Neutrophils # Man Lymphocytes # (Manual) Monocytes # (Manual) Eosinophils # (Manual) Basophils # (Manual) PT INR D-Dimer ABG pH POC ABG pCO2 POC ABG pO2 ABG pO2 ABG HCO3 ABG O2 Saturation ABG Base Excess ABG Hemoglobin ABG Oxyhemoglobin ABG Potassium ABG Glucose Oxyhemoglobin Carboxyhemoglobin Sodium Potassium Chloride Carbon Dioxide BUN Creatinine Glucose POC Glucose 127 H 114 H Calcium Ferritin Total Bilirubin Alkaline Phosphatase Lactate Dehydrogenase Total Creatine Kinase CK-MB (CK-2) Rel Index Troponin T C-Reactive Protein Total Protein Albumin Prealbumin LDL Cholesterol Direct HDL Cholesterol Arterial Blood Glucose Arterial Blood Ionized Calcium Urine WBC (Auto) Allied health notes reviewed: nursing
--- NOTE | 2020-05-22 15:37 | Progress Note ---
Assessment and Plan --Acute hypoxic hypercapnic respiratory failure; Intubated on mechanical ventilation. Etiology secondary to sepsis, ALS, multifocal pneumonia (Covid negative). S/p trach placement 03/07/20 --Status post cardiac arrest on 02/25, cardiac hernandez now stable --Dysphagia, status post PEG placement for tube feeding --ALS; Chronic Continue to provide supportive care --Elevated D-dimers; CTA chest, lower extremity venous Doppler both are negative Lovenox for DVT prophylaxis --Bilateral pneumonia; probably community-acquired Completed treatment ID recommendations appreciated --Sepsis secondary to pneumonia s/p empiric antibiotic --Elevated troponin; Serial cardiac enzymes, serial EKGs Echocardiogram, cardiology consult if needed --Hypernatremia Trend sodium Free water via feeding tube --Abdominal distention due to bladder outlet obstruction, resolved CT abdomen showed bladder outlet obstruction, urology consulted s/p drake placement by urology on 03/09 --Hypotension possibly from septic shock and bladder outlet obstruction improved following placing drake --Hypernatremia due to hypovolumia, resolved free water with TF --Constipation; Patient already received Dulcolax suppository and Colace Received milk of magnesia, with relief --DVT prophylaxis; Lovenox Brief history: 59-year-old male patient with significant past medical history of ALS, presented to ED with worsening shortness of breath since the morning [employer]AREHOU[employer] RECEIVING [employer]. Patient was on a trilogy machine for breathing 18/11. EMS arrived, patient had O2 sats in the 80s. EMS attempted to place patient on their CPAP machine, however patient did not tolerate. Patient was admitted to the ICU with diagnosis of acute hypoxic respiratory failure and placed on BiPAP. Patient initially tolerated but later deteriorated with respiratory status. CTA chest showed no PE but significant for bilateral pneumonia. Doppler ultrasound also negative for DVT. COVID-19 test ordered and negative. Due to persistent hypoxia and asystolic/V. fib cardiac arrest, patient was intubated on 02/26/2020 at 1500. Patient now on mechanical ventilation in the ICU s/p trach placement and now unable to wean off from the mechanical ventilation. Patient now status post PEG placement for tube feeding. Patient most likely need long-term placement -LTAC versus SNF Daily course: 02/25/2020. CTA of the chest reveals no PE but does illustrate the bilateral pneumonia. Doppler ultrasound also negative for DVT. Blood cultures are pe nding. Await COVID-19 testing. Patient currently requiring BiPAP IPAP 24/EPAP 6 with FiO2 of 25%. Continue O2 and BiPAP as clinically indicated. ID and pulmonary consulted. 02/26/2020. Blood cultures are negative x48 hours and Covid testing negative as well. Continue antibiotics per ID recommendations for community-acquired bilateral pneumonia. Cardiology consultation for elevated troponin. Check echocardiogram. 02/27/2020. Events of yesterday noted with asystole following V. fib arrest. Patient currently on AC mode rate 20, tidal volume 400, FiO2 50% and a PEEP of 6. Follow-up echocardiogram for elevated troponin. Cardiology suspects NSTEMI Type 2 in the setting of acute resp failure. Chest CTA and BLE Dopplers neg. we will discontinue Decadron given the Covid PCR is negative. 02/28/2020. I spoke with the sister Felisa Eli who is the power of commercial real estate attorney regarding advanced directives and she instructed me that she would like to continue with aggressive care at this time. I informed her of the guarded prognosis and high mortality/morbidity and she voiced understanding. Patient currently with AC mode ventilation rate 18, tidal volume 400, FiO2 40% and a PEEP of 6. Continue antibiotics for pneumonia. ID previously consulted. Also consult neurology with regards to ALS. 02/29/2020; patient is intubated and on CPAP patient is alert and oriented. Patient has ALS. Dr. Álvarez spoke with his sister and she wants aggressive care. Continue antibiotics for pneumonia. Neurology consulted for ALS. Prognosis poor 03/01/2020; patient is intubated and on CPAP, patient is alert and oriented. I spoke with his 2 sisters about the management plan. 03/02/2020; patient is intubated and on CPAP. Patient was alert and oriented. I spoke with Dr. mohr and he thinks patient may need mechanical ventilation, likely his disease progressed. Dr. Flowers did debridement this morning. 03/03/2020; patient is intubated and on CPAP, patient was on trilogy and BiPAP at home. Patient has ALS. on spontaneous breathing trial. Patient is alert and oriented but quadriplegic. Patient has severe bilateral pneumonia and is on cefepime and Vanco, ID is following. Patient has sacral decubitus ulcer and debridement was done by Dr. Flowers and there is no osteomyelitis. 03/05. Patient still on broad-spectrum antibiotics. Status post sacral decubitus ulcer debridements-no osteomyelitis. Patient is on AC 25/400/30% PEEP 5. No blood gas results today. 03/06. Plan for tracheostomy by surgery. Still remains intubated. Labs reviewed-sodium 150. Started on free water 200 every 8hr. trend sodium. 03/07: s/p trach placement today, patient placed back on mechanical ventilation with trach. Plan to resume tube feeding with NG tube. Continue to monitor vitals, monitor BMP. 03/08: Patient noted to have distended abdomen with low urinary output. Obtain bladder scan rule out urine retention, UA and urine culture, continue to follow clinically. 03/09: Patient noted to have low blood pressure with SBP as low as 70s. Ordered for 500 mils normal saline bolus. CT abdomen showed bladder outlet obstruction, urology consulted. 03/10: placed on drake by urology o/n, improved urine outpt. cont to monitor BMP. resuded TF - cont free water with TF. wean off from vent as tolerated. 03/11: Vitals stable. cont TF, wean off from vent as tolerated. start on 1/2 NS for hypernatremia - follow BMP 03/12: wean off vent as tolerated, plan for speech eval, cont Tf for now, cont iv fluid 03/13: unable to wean off from vent, unable to do speech therapy eval. will need PEG tube, cont supportive care for now, cont NG tube feeding 03/14: consulted GI for PEg placemnet, cont supportive care. remains on vent at night 03/15: Discussed with GI, plan for PEG tube placement possibly tomorrow. Continue supportive care and wean off from vent as tolerated. Hold Lovenox dose tonight. 03/16: family didnot consent for PEG placement yesterday. I spoke with the megan rodriguez today and she is now agreeable for PEG tube. I explained the necessity of the procedure with RN to the patient also and he nodded started on tube feeding, for the procedure. will cont supportive care. planned for PEG tube placement tomorrow. 03/17: s/p PEG placement today, patient tolerated well, cont supportive care 03/18: Started on tube feeding with new PEG tube, continue to wean off vent as tolerated 03/19: cont to monitor with supportive care, wean off vent as tolerated 03/20: Continue to wean off vent as tolerated -but failing weaning trial. Still requiring vent support at night. Currently on PEG tube for tube feed. 03/21. Pt with PSV trials with FiO@ 30%, PEEP 6, PS 10. Currently on PEG tube for tube feed. 03/22/2020. Continue PSV trials per pulmonary. Continue bronchodilators. Patient tolerating tube feedings. Continue Robinul for secretion control. 03/23/2020. Continue PSV trials per pulmonary. Continue bronchodilators. Continue Scopolamine and Robinul for secretion control. Trach care/airway management. Mobility protocols for pressure ulcer prophylaxis. LTAC evaluation per case management 03/24/2020. Continue PSV trials with current settings pressure support 10, PEEP 6 and FiO2 30%. Continue bronchodilators/nebulizer. Continue Scopolamine and Robinul for secretion control. Trach care/airway management. Mobility protocols for pressure ulcer prophylaxis. LTAC evaluation per case management 03/25/2020. Pulmonary to proceed with T-piece trials today. Continue bronchodilators/nebulizer. Continue Scopolamine and Robinul for secretion control. Trach care/airway management. Mobility protocols for pressure ulcer prophylaxis. 03/26/2020. Patient currently with PSV 10/6 at FiO2 of 30%. Continue weaning and T-piece trials per protocol. Continue bronchodilators/nebulizer. Continue Scopolamine and Robinul for secretion control. Trach care/airway management. Mobility protocols for pressure ulcer prophylaxis. Continue tube feeding with aspiration precautions. 03/27/2020. Patient currently with PSV 10/6 at FiO2 of 30%. Continue weaning and T-piece trials per protocol. Continue bronchodilators/nebulizer. Continue Scopolamine and Robinul for secretion control. Trach care/airway management. Mobility protocols for pressure ulcer prophylaxis. Continue tube feeding with aspiration precautions. 03/28. Had temp 100.7F. He has been off antibiotics. Will send blood culture, ua, urine culture and chest xray. Had chest pain overnight and trop was elevated as well. Cardiology to evaluate 03/29. Has back pain due to position. He mentions his chest pain is positional. Has no other complaints. Still on mechanical ventilation 03/30. No chest pain today. Labs reviewed. Discussed chest pain with cardiology and team advised no further work up at this time. Can follow up with cardiology in the office after hospitalization 03/31. Lidocaine patch for lower back pain. 04/01. Discharge planning underway. CM notes reviewed. Discussed with daughter 04/02. CM trying to arrange discharge. Continue PSV trials. Discussed with patients significant other 04/04/2020; CM is working for discharge arrangement. Continue PSV trials. 04/05/2020; patient was seen and evaluated this morning and no change from baseline. Continue with PSV trials. Follow with employee counselor for discharge planning. 04/06/2020;patient was seen and evaluated this morning and no change from baseline. Continue with PSV trials. Follow with employee counselor for discharge planning. 04/07/2020; patient was seen and evaluated this morning and no change from baseline. Continue with PSV trials. Follow with employee counselor for discharge planning. 04/08/2020; patient is vent dependent. Discharge is per employee counselor. 04/09/2020 patient is vent dependent, possible LTAC placement 04/10/2020; tracheostomy on vent, vent dependent pending LTAC placement 04/11/2020; clinically no change, tracheostomy on ventilatory support, wean as tolerated, awaiting placement 04/12/2020; remains on ventilatory support, unable to wean, patient wants to see a speech therapist for sound box However we cannot try that as long as he is on ventilatory support, once he is weaned off vent We will consult speech therapist, plan of care reviewed with the patient and his nurse 04/14/2020; clinically no change, on ventilatory support, complains of constipation, milk of magnesia Closely monitor the patient and adjust the management as needed 04/15/2020; patient has some oral thrush on the tongue, will give Magic mouthwash/nystatin swish and spit Wean off vent as tolerated 04/16 patient is alert and oriented, unable to comprehend what he is trying to tell but appears to complain of some pain, no acute events overnight, all interdisciplinary notes reviewed. Waiting for LTAC versus detention facility placement 04/17/2020. Continue supportive care with mechanical ventilation. Patient currently on AC mode rate 10, tidal volume 400 FiO2 30% with a PEEP of 6. Discharge planning per case management. 04/18/2020. Patient remains on mechanical ventilation AC mode rate 10, tidal volume 400, FiO2 30% and PEEP of 6. Continue spontaneous breathing trials as tolerated. Previously, patient was considered for discharge home with skilled staff providing care for 12 hours 7 days/week. Continue discussed with case management discharge planning. 04/19/20. Patient remains on mechanical ventilation AC mode rate 10, tidal volume 400, FiO2 30% and PEEP of 6. Continue spontaneous breathing trials as tolerated. 04/20/2020. Patient remains on mechanical ventilation AC mode rate 10, tidal volume 400, FiO2 30% and PEEP of 6. Continue spontaneous breathing trials as tolerated. 04/21/2020. Patient remains on mechanical ventilation AC mode rate 10, tidal volume 400, FiO2 30% and PEEP of 6. Continue tracheostomy care, secretion control and airway management. Continue spontaneous breathing trials as tolerated. 04/22/2020. Patient remains on mechanical ventilation AC mode rate 10, tidal volume 400, FiO2 30% and PEEP of 6. Continue tracheostomy care, secretion control and airway management. Continue spontaneous breathing trials as tolera milana. 04/23/2020. Patient on mechanical ventilation AC mode rate 18, tidal volume 450, FiO2 30% and PEEP of 6. Continue tracheostomy care, secretion control and airway management. Continue spontaneous breathing trials as tolerated. Continue Robinul and scopolamine for secretions. Continue baclofen. 04/24/2020. Patient remains on AC mode ventilation rate 10, tidal volume 400, FiO2 30% and PEEP of 6. Continue tracheostomy care, secretion control and airway management. Continue spontaneous breathing trials as tolerated. Continue Robinul and scopolamine for secretions. Continue baclofen. Continue Xanax for anxiety and Ambien for sleep. Await case management follow-up with regards to discharge planning. 04/25/2020. Patient remains on AC mode ventilation rate 10, tidal volume 400, FiO2 30% and PEEP of 6. Continue tracheostomy care, secretion control and airway management. Continue spontaneous breathing trials as tolerated. Continue Robinul and scopolamine for secretions. Continue baclofen. Continue Xanax for anxiety and Ambien for sleep. Await case management follow-up with regards to discharge planning. 04/26. Patient remains on AC mode ventilation rate 10, tidal volume 400, FiO2 30% and PEEP of 6. Continue tracheostomy care, secretion control and airway management. Continue spontaneous breathing trials as tolerated. Continue Robinul and scopolamine for secretions. Continue baclofen. Continue Xanax for anxiety and Ambien for sleep. Await case management follow-up with regards to discharge planning. 04/27. Patient remains on AC mode ventilation rate 10, tidal volume 400, FiO2 30% and PEEP of 6. Continue tracheostomy care, secretion control and airway management. Continue spontaneous breathing trials as tolerated. Continue Robinul and scopolamine for secretions. Continue baclofen. Continue Xanax for anxiety and Ambien for sleep. Await case management follow-up with regards to discharge planning. 04/28/20 no acute events overnight, remains vent dependent, cardiology and pulmonary notes reviewed 04/29 remains intubated via tracheostomy, no acute events 04/30 no acute events overnight, cardiology note reviewed, remains vent dependent, discharge planning per case management 05/01 stable. cardiology and pulmonary notes reviewed. D/C acu-checks 05/02 - todate: Clinically stable, CM working on placement. Continue supportive care. Subjective Date of service: 05/22/20 Principal diagnosis: Ac on Ch Hypercapnic & hypoxemic Resp Failure; Severe Sepsis; Jamar PNA; ALS Interval history: Patient seen and examined Remains on trach tube Discussed with RN at the bedside Vitals reviewed -BP stable Tolerating tube feeding with PEG tube Objective - Exam Narrative Exam: GENERAL: Awake. Intubated with trach tube HEAD: No signs of head trauma. EYES: Pupils are equal. Extraocular motions intact. EARS: Hearing grossly intact. MOUTH: Oropharynx is normal. NECK: No adenopathy, no JVD. CHEST: Coarse breath sounds bilaterally CARDIAC: Regular rate and rhythm. S1 and S2, without murmurs, gallops, or rubs. VASCULAR: No Edema. Peripheral pulses normal and equal in all extremities. ABDOMEN: Soft, non tender and nondistended. Bowel Sounds normal. PEG in place NEUROLOGIC EXAM: Awake, paraplegic SKIN: No obvious lesions - Constitutional Vitals: Vital Signs - 12hr 05/22/20 05/22/20 05/22/20 04:00 05:00 06:00 Temperature 98.2 F Pulse Rate 99 H 106 H 109 H Respiratory 20 21 23 Rate Blood Pressure 153/102 166/113 169/111 O2 Sat by Pulse 97 96 94 Oximetry O2 Sat by Pulse Oximetry [ Assessment] 05/22/20 05/22/20 05/22/20 07:00 08:00 08:52 Temperature 97.4 F L Pulse Rate 102 H 103 H 102 H Respiratory 24 20 21 Rate Blood Pressure 169/106 150/105 150/105 O2 Sat by Pulse 95 98 Oximetry O2 Sat by Pulse Oximetry [ Assessment] 05/22/20 05/22/20 05/22/20 09:00 09:54 10:00 Temperature Pulse Rate 102 H 92 H 106 H Respiratory 20 24 Rate Blood Pressure 152/106 152/106 159/106 O2 Sat by Pulse 96 98 Oximetry O2 Sat by Pulse Oximetry [ Assessment] 05/22/20 05/22/20 05/22/20 11:00 11:34 12:00 Temperature 98.0 F Pulse Rate 91 H 100 H 98 H Respiratory 17 23 14 Rate Blood Pressure 130/94 130/94 130/94 O2 Sat by Pulse 100 100 100 Oximetry O2 Sat by Pulse Oximetry [ Assessment] 05/22/20 13:38 Temperature Pulse Rate Respiratory Rate Blood Pressure O2 Sat by Pulse Oximetry O2 Sat by Pulse 97 Oximetry [ Assessment] - Labs CBC & Chem 7: 05/21/20 04:18 05/21/20 04:18 Labs: Abnormal lab results 05/21/20 05/22/20 05/22/20 Range/Units 23:53 05:21 11:35 POC Glucose 114 H 127 H 114 H (70-105) mg/dL HEART Score - HEART Score Troponin: Troponin T 0.181 ng/mL (0.00-0.029) H* 04/24/20 05:28
[2020-05-22] MEDS: ZOLPIDEM 5 MG TAB PO PRN (21:56)
[2020-05-22] MEDS: SENNOSIDES 8.6 MG TAB PO SCH (21:56)
[2020-05-22] MEDS: ENOXAPARIN 40 MG/0.4 ML INJ SUB-Q SCH (21:57)
[2020-05-22] MEDS: D5W/0.9% NACL 1,000 ML IV SCH (21:58)
[2020-05-22] MEDS: diphenhydrAMINE 25 MG CAP PO PRN (23:15)
[2020-05-23] MEDS: diphenhydrAMINE 25 MG CAP PO PRN (04:51)
[2020-05-23] MEDS: MORPHINE 2 MG/1 ML INJ IV PRN ×4 (04:51→21:29)
[2020-05-23] MEDS: ALPRAZolam 0.5 MG TAB PO PRN ×2 (06:14→18:28)
[2020-05-23] MEDS: LIDOCAINE 5% 1 EACH PATCH TD SCH (10:07)
[2020-05-23] MEDS: ASPIRIN EC 81 MG TAB PO SCH (10:08)
[2020-05-23] MEDS: DOCUSATE SODIUM 100 MG/10 ML ORAL LIQD FEEDTUBE SCH ×2 (10:08→21:15)
[2020-05-23] MEDS: METOPROLOL TARTRATE 25 MG TAB PO SCH ×2 (10:08→21:16)
[2020-05-23] MEDS: BACLOFEN 10 MG TAB PO SCH ×2 (10:08→21:16)
[2020-05-23] MEDS: SCOPOLAMINE TRANSDERMAL PATCH 72 HR TD SCH (10:08)
[2020-05-23] MEDS: GLYCOPYRROLATE 1 MG TAB PO SCH ×3 (10:08→21:10)
[2020-05-23] MEDS: PREGABALIN 75 MG CAP PO SCH ×2 (10:09→21:16)
[2020-05-23] MEDS: LANSOPRAZOLE 30 MG SOLUTAB FEEDTUBE SCH (10:09)
[2020-05-23] MEDS: traMADol 50 MG TAB PO PRN (10:09)
[2020-05-23] MEDS: TAMSULOSIN 0.4 MG CAP PO SCH (10:09)
--- NOTE | 2020-05-23 16:41 | Progress Note ---
Assessment and Plan --Acute hypoxic hypercapnic respiratory failure; Intubated on mechanical ventilation. Etiology secondary to sepsis, ALS, multifocal pneumonia (Covid negative). S/p trach placement 03/07/20 --Status post cardiac arrest on 02/25, cardiac hernandez now stable --Dysphagia, status post PEG placement for tube feeding --ALS; Chronic Continue to provide supportive care --Elevated D-dimers; CTA chest, lower extremity venous Doppler both are negative Lovenox for DVT prophylaxis --Bilateral pneumonia; probably community-acquired Completed treatment ID recommendations appreciated --Sepsis secondary to pneumonia s/p empiric antibiotic --Elevated troponin; Serial cardiac enzymes, serial EKGs Echocardiogram, cardiology consult if needed --Hypernatremia Trend sodium Free water via feeding tube --Abdominal distention due to bladder outlet obstruction, resolved CT abdomen showed bladder outlet obstruction, urology consulted s/p drake placement by urology on 03/09 --Hypotension possibly from septic shock and bladder outlet obstruction improved following placing drake --Hypernatremia due to hypovolumia, resolved free water with TF --Constipation; Patient already received Dulcolax suppository and Colace Received milk of magnesia, with relief --DVT prophylaxis; Lovenox Brief history: 59-year-old male patient with significant past medical history of ALS, presented to ED with worsening shortness of breath since the morning [facility]. Patient was on a trilogy machine for breathing 18/11. EMS arrived, patient had O2 sats in the 80s. EMS attempted to place patient on their CPAP machine, however patient did not tolerate. Patient was admitted to the ICU with diagnosis of acute hypoxic respiratory failure and placed on BiPAP. Patient initially tolerated but later deteriorated with respiratory status. CTA chest showed no PE but significant for bilateral pneumonia. Doppler ultrasound also negative for DVT. COVID-19 test ordered and negative. Due to persistent hypoxia and asystolic/V. fib cardiac arrest, patient was intubated on 02/26/2020 at 1500. Patient now on mechanical ventilation in the ICU s/p trach placement and now unable to wean off from the mechanical ventilation. Patient now status post PEG placement for tube feeding. Patient most likely need long-term placement -LTAC versus SNF Daily course: 02/25/2020. CTA of the chest reveals no PE but does illustrate the bilateral pneumonia. Doppler ultrasound also negative for DVT. Blood cultures are pe nding. Await COVID-19 testing. Patient currently requiring BiPAP IPAP 24/EPAP 6 with FiO2 of 25%. Continue O2 and BiPAP as clinically indicated. ID and pulmonary consulted. 02/26/2020. Blood cultures are negative x48 hours and Covid testing negative as well. Continue antibiotics per ID recommendations for community-acquired bilateral pneumonia. Cardiology consultation for elevated troponin. Check echocardiogram. 02/27/2020. Events of yesterday noted with asystole following V. fib arrest. Patient currently on AC mode rate 20, tidal volume 400, FiO2 50% and a PEEP of 6. Follow-up echocardiogram for elevated troponin. Cardiology suspects NSTEMI Type 2 in the setting of acute resp failure. Chest CTA and BLE Dopplers neg. we will discontinue Decadron given the Covid PCR is negative. 02/28/2020. I spoke with the sister Felisa Eli who is the power of disability attorney regarding advanced directives and she instructed me that she would like to continue with aggressive care at this time. I informed her of the guarded prognosis and high mortality/morbidity and she voiced understanding. Patient currently with AC mode ventilation rate 18, tidal volume 400, FiO2 40% and a PEEP of 6. Continue antibiotics for pneumonia. ID previously consulted. Also consult neurology with regards to ALS. 02/29/2020; patient is intubated and on CPAP patient is alert and oriented. Patient has ALS. Dr. Álvarez spoke with his sister and she wants aggressive care. Continue antibiotics for pneumonia. Neurology consulted for ALS. Prognosis poor 03/01/2020; patient is intubated and on CPAP, patient is alert and oriented. I spoke with his 2 sisters about the management plan. 03/02/2020; patient is intubated and on CPAP. Patient was alert and oriented. I spoke with Dr. mohr and he thinks patient may need mechanical ventilation, likely his disease progressed. Dr. Flowers did debridement this morning. 03/03/2020; patient is intubated and on CPAP, patient was on trilogy and BiPAP at home. Patient has ALS. on spontaneous breathing trial. Patient is alert and oriented but quadriplegic. Patient has severe bilateral pneumonia and is on cefepime and Vanco, ID is following. Patient has sacral decubitus ulcer and debridement was done by Dr. Flowers and there is no osteomyelitis. 03/05. Patient still on broad-spectrum antibiotics. Status post sacral decubitus ulcer debridements-no osteomyelitis. Patient is on AC 25/400/30% PEEP 5. No blood gas results today. 03/06. Plan for tracheostomy by surgery. Still remains intubated. Labs reviewed-sodium 150. Started on free water 200 every 8hr. trend sodium. 03/07: s/p trach placement today, patient placed back on mechanical ventilation with trach. Plan to resume tube feeding with NG tube. Continue to monitor vitals, monitor BMP. 03/08: Patient noted to have distended abdomen with low urinary output. Obtain bladder scan rule out urine retention, UA and urine culture, continue to follow clinically. 03/09: Patient noted to have low blood pressure with SBP as low as 70s. Ordered for 500 mils normal saline bolus. CT abdomen showed bladder outlet obstruction, urology consulted. 03/10: placed on drake by urology o/n, improved urine outpt. cont to monitor BMP. resuded TF - cont free water with TF. wean off from vent as tolerated. 03/11: Vitals stable. cont TF, wean off from vent as tolerated. start on 1/2 NS for hypernatremia - follow BMP 03/12: wean off vent as tolerated, plan for speech eval, cont Tf for now, cont iv fluid 03/13: unable to wean off from vent, unable to do speech therapy eval. will need PEG tube, cont supportive care for now, cont NG tube feeding 03/14: consulted GI for PEg placemnet, cont supportive care. remains on vent at night 03/15: Discussed with GI, plan for PEG tube placement possibly tomorrow. Continue supportive care and wean off from vent as tolerated. Hold Lovenox dose tonight. 03/16: family didnot consent for PEG placement yesterday. I spoke with the megan rodriguez today and she is now agreeable for PEG tube. I explained the necessity of the procedure with RN to the patient also and he nodded started on tube feeding, for the procedure. will cont supportive care. planned for PEG tube placement tomorrow. 03/17: s/p PEG placement today, patient tolerated well, cont supportive care 03/18: Started on tube feeding with new PEG tube, continue to wean off vent as tolerated 03/19: cont to monitor with supportive care, wean off vent as tolerated 03/20: Continue to wean off vent as tolerated -but failing weaning trial. Still requiring vent support at night. Currently on PEG tube for tube feed. 03/21. Pt with PSV trials with FiO@ 30%, PEEP 6, PS 10. Currently on PEG tube for tube feed. 03/22/2020. Continue PSV trials per pulmonary. Continue bronchodilators. Patient tolerating tube feedings. Continue Robinul for secretion control. 03/23/2020. Continue PSV trials per pulmonary. Continue bronchodilators. Continue Scopolamine and Robinul for secretion control. Trach care/airway management. Mobility protocols for pressure ulcer prophylaxis. LTAC evaluation per case management 03/24/2020. Continue PSV trials with current settings pressure support 10, PEEP 6 and FiO2 30%. Continue bronchodilators/nebulizer. Continue Scopolamine and Robinul for secretion control. Trach care/airway management. Mobility protocols for pressure ulcer prophylaxis. LTAC evaluation per case management 03/25/2020. Pulmonary to proceed with T-piece trials today. Continue bronchodilators/nebulizer. Continue Scopolamine and Robinul for secretion control. Trach care/airway management. Mobility protocols for pressure ulcer prophylaxis. 03/26/2020. Patient currently with PSV 10/6 at FiO2 of 30%. Continue weaning and T-piece trials per protocol. Continue bronchodilators/nebulizer. Continue Scopolamine and Robinul for secretion control. Trach care/airway management. Mobility protocols for pressure ulcer prophylaxis. Continue tube feeding with aspiration precautions. 03/27/2020. Patient currently with PSV 10/6 at FiO2 of 30%. Continue weaning and T-piece trials per protocol. Continue bronchodilators/nebulizer. Continue Scopolamine and Robinul for secretion control. Trach care/airway management. Mobility protocols for pressure ulcer prophylaxis. Continue tube feeding with aspiration precautions. 03/28. Had temp 100.7F. He has been off antibiotics. Will send blood culture, ua, urine culture and chest xray. Had chest pain overnight and trop was elevated as well. Cardiology to evaluate 03/29. Has back pain due to position. He mentions his chest pain is positional. Has no other complaints. Still on mechanical ventilation 03/30. No chest pain today. Labs reviewed. Discussed chest pain with cardiology and team advised no further work up at this time. Can follow up with cardiology in the office after hospitalization 03/31. Lidocaine patch for lower back pain. 04/01. Discharge planning underway. CM notes reviewed. Discussed with daughter 04/02. CM trying to arrange discharge. Continue PSV trials. Discussed with patients significant other 04/04/2020; CM is working for discharge arrangement. Continue PSV trials. 04/05/2020; patient was seen and evaluated this morning and no change from baseline. Continue with PSV trials. Follow with home service advisor for discharge planning. 04/06/2020;patient was seen and evaluated this morning and no change from baseline. Continue with PSV trials. Follow with home service advisor for discharge planning. 04/07/2020; patient was seen and evaluated this morning and no change from baseline. Continue with PSV trials. Follow with home service advisor for discharge planning. 04/08/2020; patient is vent dependent. Discharge is per home service advisor. 04/09/2020 patient is vent dependent, possible LTAC placement 04/10/2020; tracheostomy on vent, vent dependent pending LTAC placement 04/11/2020; clinically no change, tracheostomy on ventilatory support, wean as tolerated, awaiting placement 04/12/2020; remains on ventilatory support, unable to wean, patient wants to see a speech therapist for sound box However we cannot try that as long as he is on ventilatory support, once he is weaned off vent We will consult speech therapist, plan of care reviewed with the patient and his nurse 04/14/2020; clinically no change, on ventilatory support, complains of constipation, milk of magnesia Closely monitor the patient and adjust the management as needed 04/15/2020; patient has some oral thrush on the tongue, will give Magic mouthwash/nystatin swish and spit Wean off vent as tolerated 04/16 patient is alert and oriented, unable to comprehend what he is trying to tell but appears to complain of some pain, no acute events overnight, all interdisciplinary notes reviewed. Waiting for LTAC versus [facility] facility placement 04/17/2020. Continue supportive care with mechanical ventilation. Patient currently on AC mode rate 10, tidal volume 400 FiO2 30% with a PEEP of 6. Discharge planning per case management. 04/18/2020. Patient remains on mechanical ventilation AC mode rate 10, tidal volume 400, FiO2 30% and PEEP of 6. Continue spontaneous breathing trials as tolerated. Previously, patient was considered for discharge home with skilled staff providing care for 12 hours 7 days/week. Continue discussed with case management discharge planning. 04/19/20. Patient remains on mechanical ventilation AC mode rate 10, tidal volume 400, FiO2 30% and PEEP of 6. Continue spontaneous breathing trials as tolerated. 04/20/2020. Patient remains on mechanical ventilation AC mode rate 10, tidal volume 400, FiO2 30% and PEEP of 6. Continue spontaneous breathing trials as tolerated. 04/21/2020. Patient remains on mechanical ventilation AC mode rate 10, tidal volume 400, FiO2 30% and PEEP of 6. Continue tracheostomy care, secretion control and airway management. Continue spontaneous breathing trials as tolerated. 04/22/2020. Patient remains on mechanical ventilation AC mode rate 10, tidal volume 400, FiO2 30% and PEEP of 6. Continue tracheostomy care, secretion control and airway management. Continue spontaneous breathing trials as tolera milana. 04/23/2020. Patient on mechanical ventilation AC mode rate 18, tidal volume 450, FiO2 30% and PEEP of 6. Continue tracheostomy care, secretion control and airway management. Continue spontaneous breathing trials as tolerated. Continue Robinul and scopolamine for secretions. Continue baclofen. 04/24/2020. Patient remains on AC mode ventilation rate 10, tidal volume 400, FiO2 30% and PEEP of 6. Continue tracheostomy care, secretion control and airway management. Continue spontaneous breathing trials as tolerated. Continue Robinul and scopolamine for secretions. Continue baclofen. Continue Xanax for anxiety and Ambien for sleep. Await case management follow-up with regards to discharge planning. 04/25/2020. Patient remains on AC mode ventilation rate 10, tidal volume 400, FiO2 30% and PEEP of 6. Continue tracheostomy care, secretion control and airway management. Continue spontaneous breathing trials as tolerated. Continue Robinul and scopolamine for secretions. Continue baclofen. Continue Xanax for anxiety and Ambien for sleep. Await case management follow-up with regards to discharge planning. 04/26. Patient remains on AC mode ventilation rate 10, tidal volume 400, FiO2 30% and PEEP of 6. Continue tracheostomy care, secretion control and airway management. Continue spontaneous breathing trials as tolerated. Continue Robinul and scopolamine for secretions. Continue baclofen. Continue Xanax for anxiety and Ambien for sleep. Await case management follow-up with regards to discharge planning. 04/27. Patient remains on AC mode ventilation rate 10, tidal volume 400, FiO2 30% and PEEP of 6. Continue tracheostomy care, secretion control and airway management. Continue spontaneous breathing trials as tolerated. Continue Robinul and scopolamine for secretions. Continue baclofen. Continue Xanax for anxiety and Ambien for sleep. Await case management follow-up with regards to discharge planning. 04/28/20 no acute events overnight, remains vent dependent, cardiology and pulmonary notes reviewed 04/29 remains intubated via tracheostomy, no acute events 04/30 no acute events overnight, cardiology note reviewed, remains vent dependent, discharge planning per case management 05/01 stable. cardiology and pulmonary notes reviewed. D/C acu-checks 05/02 - todate: Clinically stable, CM working on placement. Continue supportive care. Subjective Date of service: 05/23/20 Principal diagnosis: Ac on Ch Hypercapnic & hypoxemic Resp Failure; Severe Sepsis; Jamar PNA; ALS Interval history: Patient seen and examined Remains on trach tube Discussed with RN at the bedside Vitals reviewed -BP stable Tolerating tube feeding with PEG tube Objective - Exam Narrative Exam: GENERAL: Awake. Intubated with trach tube HEAD: No signs of head trauma. EYES: Pupils are equal. Extraocular motions intact. EARS: Hearing grossly intact. MOUTH: Oropharynx is normal. NECK: No adenopathy, no JVD. CHEST: Coarse breath sounds bilaterally CARDIAC: Regular rate and rhythm. S1 and S2, without murmurs, gallops, or rubs. VASCULAR: No Edema. Peripheral pulses normal and equal in all extremities. ABDOMEN: Soft, non tender and nondistended. Bowel Sounds normal. PEG in place NEUROLOGIC EXAM: Awake, paraplegic SKIN: No obvious lesions - Constitutional Vitals: Vital Signs - 12hr 05/23/20 05/23/20 05/23/20 04:46 04:51 05:00 Temperature Pulse Rate 118 H 113 H Respiratory 14 21 Rate Blood Pressure 114/81 O2 Sat by Pulse 98 Oximetry O2 Sat by Pulse 98 Oximetry [ Assessment] 05/23/20 05/23/20 05/23/20 05:21 06:00 07:00 Temperature Pulse Rate 108 H 111 H Respiratory 20 16 22 Rate Blood Pressure 138/95 138/95 O2 Sat by Pulse 99 94 Oximetry O2 Sat by Pulse Oximetry [ Assessment] 05/23/20 05/23/20 05/23/20 07:49 07:55 08:00 Temperature 98.0 F Pulse Rate 111 H 102 H 115 H Respiratory 16 17 Rate Blood Pressure 138/95 139/90 O2 Sat by Pulse 94 98 Oximetry O2 Sat by Pulse Oximetry [ Assessment] 05/23/20 05/23/20 05/23/20 09:00 10:00 10:08 Temperature Pulse Rate 108 H 116 H 121 H Respiratory 16 24 Rate Blood Pressure 129/87 130/89 130/89 O2 Sat by Pulse 98 Oximetry O2 Sat by Pulse Oximetry [ Assessment] 05/23/20 05/23/20 05/23/20 11:00 11:33 11:44 Temperature Pulse Rate 86 121 H 121 H Respiratory 26 H 27 H Rate Blood Pressure 129/87 130/89 O2 Sat by Pulse 88 98 Oximetry O2 Sat by Pulse Oximetry [ Assessment] 05/23/20 05/23/20 05/23/20 12:00 13:00 13:12 Temperature 98.1 F Pulse Rate 109 H 108 H Respiratory 24 24 Rate Blood Pressure 206/123 121/77 O2 Sat by Pulse 97 97 Oximetry O2 Sat by Pulse 99 Oximetry [ Assessment] 05/23/20 05/23/20 05/23/20 14:00 15:00 15:07 Temperature Pulse Rate 105 H 107 H 107 H Respiratory 17 24 Rate Blood Pressure 121/80 114/77 O2 Sat by Pulse 98 98 Oximetry O2 Sat by Pulse Oximetry [ Assessment] 05/23/20 05/23/20 16:00 16:28 Temperature Pulse Rate 106 H 106 H Respiratory 24 Rate Blood Pressure 118/74 118/74 O2 Sat by Pulse 97 98 Oximetry O2 Sat by Pulse Oximetry [ Assessment] - Labs CBC & Chem 7: 05/21/20 04:18 05/21/20 04:18 Labs: Abnormal lab results 05/23/20 05/23/20 Range/Units 00:06 05:44 POC Glucose 115 H 110 H (70-105) mg/dL HEART Score - HEART Score Troponin: Troponin T 0.181 ng/mL (0.00-0.029) H* 04/24/20 05:28
[2020-05-23] MEDS: D5W/0.9% NACL 1,000 ML IV SCH (21:08)
[2020-05-23] MEDS: ENOXAPARIN 40 MG/0.4 ML INJ SUB-Q SCH (21:17)
[2020-05-23] MEDS: SENNOSIDES 8.6 MG TAB PO SCH (21:17)
[2020-05-23] MEDS: ZOLPIDEM 5 MG TAB PO PRN (21:29)
--- NOTE | 2020-05-23 22:41 | Progress Note ---
Assessment and Plan Patient Awake . Patient is resting on assist control mechanical ventilation, Rate 10, Tidal volume 300, FIO2 30%, PEEP 6 and O2 saturation running 99%. Recommend Continue spontaneous breathing trials as tolerated.Respiratory therapy told me, Patient resisting to go on T tube trial ' Recommend to decrease pressure support to 5.Patient afebrile and has no leukocytosis. Chest xray done 05/02/20 reported Interval worsening of right lung base opacity now appears to be pleural parenchymal. This may be a worsened infectious process or development of right-sided pleural effusion and worsened right lung base atelectasis. Left lung base opacity is stable. Tracheostomy in stable position. Patient right lung base infiltrate reported intervel worsening, patient has no leukocytosis, recommend to place him antibiotic like zosyn. Repeat chest xray 05/11/20 reported Mild interval improvement in the hazy opacity at the right lung base as described. I suspect this represents an improving atelectasis over effusion. - Patient Problems (1) Acute on chronic respiratory failure with hypoxia and hypercapnia Current Visit: Yes Status: Acute Plan to address problem: Patient is resting on assist control, rate 10,Tidal volume 300, FIO2 30%, PEEP 6. Albuterol inhaler 2 puffs po qid. Continue S/C Lovenox. Continue prevacid. continue spontaneous breathing trials and wean him to Trach collar.. (2) Bleeding from wound Current Visit: Yes Status: Acute Plan to address problem: Management primary care , surgery and wound care. (3) Elevated d-dimer Current Visit: Yes Status: Acute Plan to address problem: Patients venous doppler studies of legs, CTA chest reported Negative for VTE. Patient is on S/C Lovenox 40 mg qd. (4) Elevated troponin Current Visit: Yes Status: Acute Plan to address problem: Management as per primary care and cardiology (5) NSTEMI (non-ST elevated myocardial infarction) Current Visit: Yes Status: Acute Plan to address problem: Management as per cardiology. (6) Pneumonia Current Visit: Yes Status: Acute Qualifiers: Laterality: bilateral Plan to address problem: Patient afebrile . Has mild leukocytosis. Repeat Chest xray done 05/02/20 reported Interval worsening of right lung base opacity now appears to be pleural parenchymal. This may be a worsened infectious process or development of right-sided pleural effusion and worsened right lung base atelectasis. Left lung base opacity is stable. Tracheostomy in stable position. Patient right lung base infiltrate reported intervel worsening, patient has no leukocytosis, recommend to place him antibiotic like zosyn. Repeating chest xray and ABGs. Repeat chest xray 05/11/20 reported Mild interval improvement in the hazy opacity at the right lung base as described. I suspect this represents an improving atelectasis over effusion. Subjective Date of service: 05/23/20 Principal diagnosis: Ac on Ch Hypercapnic & hypoxemic Resp Failure; Severe Sepsis; Jamar PNA; ALS Interval history: Patient Awake . Patient is resting on assist control mechanical ventilation, Rate 10, Tidal volume 300, FIO2 30%, PEEP 6 and O2 saturation running 99%. Rec ommend Continue spontaneous breathing trials as tolerated.Respiratory therapy told me, Patient resisting to go on T tube trial ' Recommend to decrease pressure support to 5.Patient afebrile and has no leukocytosis. Chest xray done 05/02/20 reported Interval worsening of right lung base opacity now appears to be pleural parenchymal. This may be a worsened infectious process or development of right-sided pleural effusion and worsened right lung base atelectasis. Left lung base opacity is stable. Tracheostomy in stable position. Patient right lung base infiltrate reported intervel worsening, patient has no leukocytosis, recommend to place him antibiotic like zosyn. Repeat chest xray 05/11/20 reported Mild interval improvement in the hazy opacity at the right lung base as described. I suspect this represents an improving atelectasis over effusion. Objective Vital Signs - 12hr 05/23/20 05/23/20 05/23/20 11:00 11:33 11:44 Temperature Pulse Rate 86 121 H 121 H Respiratory 26 H 27 H Rate Blood Pressure 129/87 130/89 O2 Sat by Pulse 88 98 Oximetry O2 Sat by Pulse Oximetry [ Assessment] 05/23/20 05/23/20 05/23/20 12:00 13:00 13:12 Temperature 98.1 F Pulse Rate 109 H 108 H Respiratory 24 24 Rate Blood Pressure 206/123 121/77 O2 Sat by Pulse 97 97 Oximetry O2 Sat by Pulse 99 Oximetry [ Assessment] 05/23/20 05/23/20 05/23/20 14:00 15:00 15:07 Temperature Pulse Rate 105 H 107 H 107 H Respiratory 17 24 Rate Blood Pressure 121/80 114/77 O2 Sat by Pulse 98 98 Oximetry O2 Sat by Pulse Oximetry [ Assessment] 05/23/20 05/23/20 05/23/20 16:00 16:28 17:00 Temperature 98.0 F Pulse Rate 106 H 106 H 105 H Respiratory 24 22 Rate Blood Pressure 118/74 118/74 120/70 O2 Sat by Pulse 97 98 93 Oximetry O2 Sat by Pulse Oximetry [ Assessment] 05/23/20 05/23/20 05/23/20 18:00 20:00 20:21 Temperature 98.1 F Pulse Rate 117 H 116 H Respiratory 23 Rate Blood Pressure 125/77 113/68 O2 Sat by Pulse 96 97 Oximetry O2 Sat by Pulse Oximetry [ Assessment] 05/23/20 21:29 Temperature Pulse Rate Respiratory 18 Rate Blood Pressure O2 Sat by Pulse Oximetry O2 Sat by Pulse Oximetry [ Assessment] Constitutional: no acute distress, alert, other (thin middle aged male resting o n pressure support ventilation.) Eyes: non-icteric ENT: oropharynx moist, other (S/P Tracheostomy) Neck: supple, no lymphadenopathy, no JVD Effort: mildly labored Ascultation: Bilateral: diminished breath sounds, wheezes, rhonchi (scant in bases) Percussion: Bilateral: not dull Cardiovascular: regular rate and rhythm, other (S1,S2, no murmurs) Gastrointestinal: normoactive bowel sounds, soft, non-tender, non-distended Integumentary: normal, decubitus ulcer (sacral / gluteal) Extremities: no cyanosis, no edema, pulses normal, other (atrophic looking limbs) Neurologic: pupils equal and round, other (motor strength in extremities 1-2/5, awake, alert, mouths words to make needs known) Psychiatric: depressed CBC and BMP: 05/21/20 04:18 05/21/20 04:18 ABG, PT/INR, D-dimer: ABG ABG pH 7.371 (7.320-7.450) 03/08/20 12:34 POC ABG pCO2 63.1 mmHg (32.0-48.0) H 03/08/20 12:34 ABG pCO2 60.1 mm Hg 03/06/20 04:34 POC ABG pO2 90.5 mmHg (83-108) 03/08/20 12:34 ABG pO2 88.6 mm Hg (80.0-90.0) 03/06/20 04:34 POC ABG HCO3 35.7 03/08/20 12:34 ABG O2 Saturation 97.0 % (95.0-99.0) 03/06/20 04:34 PT/INR, D-dimer PT 15.6 Sec. (12.2-14.9) H 02/24/20 09:19 INR 1.21 (0.87-1.13) H 02/24/20 09:19 D-Dimer 1311.96 ng/mlDDU (0-234) H 02/24/20 09:19 Abnormal lab findings: Abnormal Labs 02/24/20 02/24/20 02/24/20 09:19 09:19 09:19 WBC 20.2 H RBC 5.05 H Hgb Hct MCV MCH RDW 15.3 H Plt Count Lymph % (Auto) [place] % (Auto) Eos % (Auto) Lymph # (Auto) [place] # (Auto) Eos # (Auto) Seg Neutrophils % Seg Neuts % (Manual) 86.0 H Lymphocytes % (Manual) 1.0 L Monocytes % (Manual) Basophils % (Manual) Seg Neutrophils # Seg Neutrophils # Man 17.4 H Lymphocytes # (Manual) 0.2 L Monocytes # (Manual) Eosinophils # (Manual) Basophils # (Manual) PT 15.6 H INR 1.21 H D-Dimer 1311.96 H ABG pH POC ABG pCO2 POC ABG pO2 ABG pO2 ABG HCO3 ABG O2 Saturation ABG Base Excess ABG Hemoglobin ABG Oxyhemoglobin ABG Potassium ABG Glucose Oxyhemoglobin Carboxyhemoglobin Sodium 135 L Potassium 3.2 L Chloride 92.2 L Carbon Dioxide BUN 6 L Creatinine < 0.2 L Glucose 124 H POC Glucose Calcium Ferritin Total Bilirubin 2.30 H Alkaline Phosphatase 132 H Lactate Dehydrogenase Total Creatine Kinase CK-MB (CK-2) Rel Index Troponin T 0.080 H C-Reactive Protein Total Protein Albumin 3.6 L Prealbumin LDL Cholesterol Direct 41 L HDL Cholesterol Arterial Blood Glucose Arterial Blood Ionized Calcium Urine WBC (Auto) 02/24/20 02/24/20 02/24/20 09:19 09:58 10:01 WBC RBC Hgb Hct MCV MCH RDW Plt Count Lymph % (Auto) [place] % (Auto) Eos % (Auto) Lymph # (Auto) [place] # (Auto) Eos # (Auto) Seg Neutrophils % Seg Neuts % (Manual) Lymphocytes % (Manual) Monocytes % (Manual) Basophils % (Manual) Seg Neutrophils # Seg Neutrophils # Man Lymphocytes # (Manual) Monocytes # (Manual) Eosinophils # (Manual) Basophils # (Manual) PT INR D-Dimer ABG pH 7.176 L* POC ABG pCO2 POC ABG pO2 ABG pO2 91.2 H ABG HCO3 ABG O2 Saturation ABG Base Excess -4.6 L ABG Hemoglobin ABG Oxyhemoglobin ABG Potassium ABG Glucose Oxyhemoglobin 92.6 L Carboxyhemoglobin Sodium Potassium Chloride Carbon Dioxide BUN Creatinine Glucose POC Glucose Calcium Ferritin 1715.0 H Total Bilirubin Alkaline Phosphatase Lactate Dehydrogenase 303 H Total Creatine Kinase CK-MB (CK-2) Rel Index Troponin T C-Reactive Protein 26.10 H Total Protein Albumin Prealbumin LDL Cholesterol Direct HDL Cholesterol Arterial Blood Glucose Arterial Blood Ionized Calcium Urine WBC (Auto) 02/24/20 02/24/20 02/24/20 11:52 13:45 19:35 WBC RBC Hgb Hct MCV MCH RDW Plt Count Lymph % (Auto) [place] % (Auto) Eos % (Auto) Lymph # (Auto) [place] # (Auto) Eos # (Auto) Seg Neutrophils % Seg Neuts % (Manual) Lymphocytes % (Manual) Monocytes % (Manual) Basophils % (Manual) Seg Neutrophils # Seg Neutrophils # Man Lymphocytes # (Manual) Monocytes # (Manual) Eosinophils # (Manual) Basophils # (Manual) PT INR D-Dimer ABG pH 7.051 L* 7.300 L POC ABG pCO2 POC ABG pO2 ABG pO2 94.7 H 75.1 L ABG HCO3 18.0 L ABG O2 Saturation 93.5 L ABG Base Excess -6.8 L -7.8 L ABG Hemoglobin 13.2 L 11.9 L ABG Oxyhemoglobin ABG Potassium ABG Glucose Oxyhemoglobin 91.0 L 92.7 L Carboxyhemoglobin Sodium Potassium Chloride Carbon Dioxide BUN Creatinine Glucose POC Glucose Calcium Ferritin Total Bilirubin Alkaline Phosphatase Lactate Dehydrogenase Total Creatine Kinase CK-MB (CK-2) Rel Index Troponin T 0.034 H D C-Reactive Protein Total Protein Albumin Prealbumin LDL Cholesterol Direct HDL Cholesterol Arterial Blood Glucose Arterial Blood Ionized Calcium Urine WBC (Auto) 02/25/20 02/25/2020 04:00 04:00 12:26 WBC 22.9 H RBC Hgb Hct MCV 83 L MCH 27 L RDW Plt Count 468 H Lymph % (Auto) [place] % (Auto) Eos % (Auto) Lymph # (Auto) [place] # (Auto) Eos # (Auto) Seg Neutrophils % Seg Neuts % (Manual) 89.0 H Lymphocytes % (Manual) 7.0 L Monocytes % (Manual) Basophils % (Manual) Seg Neutrophils # Seg Neutrophils # Man 20.4 H Lymphocytes # (Manual) Monocytes # (Manual) Eosinophils # (Manual) Basophils # (Manual) PT INR D-Dimer ABG pH POC ABG pCO2 POC ABG pO2 ABG pO2 ABG HCO3 ABG O2 Saturation ABG Base Excess ABG Hemoglobin ABG Oxyhemoglobin ABG Potassium 2.6 L ABG Glucose 142 H Oxyhemoglobin Carboxyhemoglobin Sodium Potassium 3.2 L Chloride Carbon Dioxide 18 L BUN Creatinine 0.2 L Glucose 114 H POC Glucose Calcium Ferritin Total Bilirubin Alkaline Phosphatase Lactate Dehydrogenase Total Creatine Kinase CK-MB (CK-2) Rel Index Troponin T C-Reactive Protein Total Protein Albumin 3.5 L Prealbumin LDL Cholesterol Direct HDL Cholesterol Arterial Blood Glucose 142 H Arterial Blood Ionized Calcium Urine WBC (Auto) 02/26/20 02/26/20 02/26/20 15:58 17:00 23:43 WBC RBC Hgb Hct MCV MCH RDW Plt Count Lymph % (Auto) [place] % (Auto) Eos % (Auto) Lymph # (Auto) [place] # (Auto) Eos # (Auto) Seg Neutrophils % Seg Neuts % (Manual) Lymphocytes % (Manual) Monocytes % (Manual) Basophils % (Manual) Seg Neutrophils # Seg Neutrophils # Man Lymphocytes # (Manual) Monocytes # (Manual) Eosinophils # (Manual) Basophils # (Manual) PT INR D-Dimer ABG pH 7.502 H POC ABG pCO2 POC ABG pO2 213.6 H ABG pO2 ABG HCO3 ABG O2 Saturation ABG Base Excess ABG Hemoglobin ABG Oxyhemoglobin 99.2 H ABG Potassium 2.9 L ABG Glucose 160 H Oxyhemoglobin Carboxyhemoglobin 0.4 L Sodium Potassium Chloride Carbon Dioxide BUN Creatinine Glucose POC Glucose 189 H 120 H Calcium Ferritin Total Bilirubin Alkaline Phosphatase Lactate Dehydrogenase Total Creatine Kinase CK-MB (CK-2) Rel Index Troponin T C-Reactive Protein Total Protein Albumin Prealbumin LDL Cholesterol Direct HDL Cholesterol Arterial Blood Glucose 160 H Arterial Blood Ionized Calcium 4.5 L Urine WBC (Auto) 02/27/20 02/27/20 02/27/20 05:00 07:04 17:45 WBC RBC Hgb Hct MCV MCH RDW Plt Count Lymph % (Auto) [place] % (Auto) Eos % (Auto) Lymph # (Auto) [place] # (Auto) Eos # (Auto) Seg Neutrophils % Seg Neuts % (Manual) Lymphocytes % (Manual) Monocytes % (Manual) Basophils % (Manual) Seg Neutrophils # Seg Neutrophils # Man Lymphocytes # (Manual) Monocytes # (Manual) Eosinophils # (Manual) Basophils # (Manual) PT INR D-Dimer ABG pH 7.524 H POC ABG pCO2 POC ABG pO2 ABG pO2 ABG HCO3 ABG O2 Saturation ABG Base Excess ABG Hemoglobin ABG Oxyhemoglobin ABG Potassium 3.0 L ABG Glucose 143 H Oxyhemoglobin Carboxyhemoglobin Sodium Potassium Chloride Carbon Dioxide BUN Creatinine Glucose POC Glucose 154 H 175 H Calcium Ferritin Total Bilirubin Alkaline Phosphatase Lactate Dehydrogenase Total Creatine Kinase CK-MB (CK-2) Rel Index Troponin T C-Reactive Protein Total Protein Albumin Prealbumin LDL Cholesterol Direct HDL Cholesterol Arterial Blood Glucose 143 H Arterial Blood Ionized Calcium Urine WBC (Auto) 02/27/20 02/28/20 02/28/20 Unknown 00:21 04:15 WBC 18.7 H RBC Hgb Hct MCV MCH RDW Plt Count Lymph % (Auto) 8.7 L [place] % (Auto) Eos % (Auto) Lymph # (Auto) [place] # (Auto) 1.2 H Eos # (Auto) Seg Neutrophils % 84.6 H Seg Neuts % (Manual) Lymphocytes % (Manual) Monocytes % (Manual) Basophils % (Manual) Seg Neutrophils # 15.9 H Seg Neutrophils # Man Lymphocytes # (Manual) Monocytes # (Manual) Eosinophils # (Manual) Basophils # (Manual) PT INR D-Dimer ABG pH POC ABG pCO2 POC ABG pO2 ABG pO2 ABG HCO3 ABG O2 Saturation ABG Base Excess ABG Hemoglobin ABG Oxyhemoglobin ABG Potassium ABG Glucose Oxyhemoglobin Carboxyhemoglobin Sodium Potassium 2.9 L* Chloride Carbon Dioxide 33 H D BUN Creatinine < 0.2 L Glucose 157 H POC Glucose 134 H Calcium Ferritin Total Bilirubin Alkaline Phosphatase Lactate Dehydrogenase Total Creatine Kinase CK-MB (CK-2) Rel Index Troponin T C-Reactive Protein Total Protein Albumin Prealbumin LDL Cholesterol Direct HDL Cholesterol Arterial Blood Glucose Arterial Blood Ionized Calcium Urine WBC (Auto) 02/28/20 02/28/20 02/28/20 04:15 05:16 05:39 WBC RBC Hgb Hct MCV MCH RDW Plt Count Lymph % (Auto) [place] % (Auto) Eos % (Auto) Lymph # (Auto) [place] # (Auto) Eos # (Auto) Seg Neutrophils % Seg Neuts % (Manual) Lymphocytes % (Manual) Monocytes % (Manual) Basophils % (Manual) Seg Neutrophils # Seg Neutrophils # Man Lymphocytes # (Manual) Monocytes # (Manual) Eosinophils # (Manual) Basophils # (Manual) PT INR D-Dimer ABG pH POC ABG pCO2 POC ABG pO2 ABG pO2 142.9 H ABG HCO3 34.1 H ABG O2 Saturation ABG Base Excess 8.3 H ABG Hemoglobin ABG Oxyhemoglobin ABG Potassium ABG Glucose Oxyhemoglobin Carboxyhemoglobin Sodium 151 H Potassium Chloride Carbon Dioxide 32 H BUN Creatinine 0.2 L Glucose 167 H POC Glucose 138 H Calcium Ferritin Total Bilirubin Alkaline Phosphatase Lactate Dehydrogenase Total Creatine Kinase CK-MB (CK-2) Rel Index Troponin T C-Reactive Protein Total Protein Albumin Prealbumin LDL Cholesterol Direct HDL Cholesterol Arterial Blood Glucose Arterial Blood Ionized Calcium Urine WBC (Auto) 02/28/20 02/28/20 02/28/20 11:05 11:33 12:54 WBC RBC Hgb Hct MCV MCH RDW Plt Count Lymph % (Auto) [place] % (Auto) Eos % (Auto) Lymph # (Auto) [place] # (Auto) Eos # (Auto) Seg Neutrophils % Seg Neuts % (Manual) Lymphocytes % (Manual) Monocytes % (Manual) Basophils % (Manual) Seg Neutrophils # Seg Neutrophils # Man Lymphocytes # (Manual) Monocytes # (Manual) Eosinophils # (Manual) Basophils # (Manual) PT INR D-Dimer ABG pH POC ABG pCO2 POC ABG pO2 ABG pO2 ABG HCO3 ABG O2 Saturation ABG Base Excess ABG Hemoglobin ABG Oxyhemoglobin ABG Potassium ABG Glucose Oxyhemoglobin Carboxyhemoglobin Sodium Potassium Chloride Carbon Dioxide BUN Creatinine Glucose POC Glucose 160 H Calcium Ferritin Total Bilirubin Alkaline Phosphatase Lactate Dehydrogenase Total Creatine Kinase CK-MB (CK-2) Rel Index Troponin T C-Reactive Protein 4.70 H Total Protein Albumin Prealbumin 0.090 L LDL Cholesterol Direct HDL Cholesterol Arterial Blood Glucose Arterial Blood Ionized Calcium Urine WBC (Auto) 02/28/20 02/29/20 02/29/20 17:34 00:44 04:05 WBC 19.6 H RBC Hgb Hct MCV MCH 27 L RDW 15.4 H Plt Count Lymph % (Auto) [place] % (Auto) Eos % (Auto) Lymph # (Auto) [place] # (Auto) Eos # (Auto) Seg Neutrophils % Seg Neuts % (Manual) 86.0 H Lymphocytes % (Manual) 7.0 L Monocytes % (Manual) Basophils % (Manual) Seg Neutrophils # Seg Neutrophils # Man 16.9 H Lymphocytes # (Manual) Monocytes # (Manual) 1.2 H Eosinophils # (Manual) Basophils # (Manual) PT INR D-Dimer ABG pH POC ABG pCO2 POC ABG pO2 ABG pO2 ABG HCO3 ABG O2 Saturation ABG Base Excess ABG Hemoglobin ABG Oxyhemoglobin ABG Potassium ABG Glucose Oxyhemoglobin Carboxyhemoglobin Sodium Potassium Chloride Carbon Dioxide BUN Creatinine Glucose POC Glucose 136 H 156 H Calcium Ferritin Total Bilirubin Alkaline Phosphatase Lactate Dehydrogenase Total Creatine Kinase CK-MB (CK-2) Rel Index Troponin T C-Reactive Protein Total Protein Albumin Prealbumin LDL Cholesterol Direct HDL Cholesterol Arterial Blood Glucose Arterial Blood Ionized Calcium Urine WBC (Auto) 02/29/20 02/29/20 02/29/20 04:05 05:14 05:33 WBC RBC Hgb Hct MCV MCH RDW Plt Count Lymph % (Auto) [place] % (Auto) Eos % (Auto) Lymph # (Auto) [place] # (Auto) Eos # (Auto) Seg Neutrophils % Seg Neuts % (Manual) Lymphocytes % (Manual) Monocytes % (Manual) Basophils % (Manual) Seg Neutrophils # Seg Neutrophils # Man Lymphocytes # (Manual) Monocytes # (Manual) Eosinophils # (Manual) Basophils # (Manual) PT INR D-Dimer ABG pH POC ABG pCO2 54.3 H POC ABG pO2 124.8 H ABG pO2 ABG HCO3 ABG O2 Saturation ABG Base Excess ABG Hemoglobin ABG Oxyhemoglobin ABG Potassium ABG Glucose 185 H Oxyhemoglobin Carboxyhemoglobin Sodium 148 H Potassium Chloride Carbon Dioxide 33 H BUN Creatinine < 0.2 L Glucose 173 H POC Glucose 152 H Calcium Ferritin Total Bilirubin Alkaline Phosphatase Lactate Dehydrogenase Total Creatine Kinase CK-MB (CK-2) Rel Index Troponin T C-Reactive Protein Total Protein Albumin Prealbumin LDL Cholesterol Direct HDL Cholesterol Arterial Blood Glucose 185 H Arterial Blood Ionized Calcium Urine WBC (Auto) 03/01/20 03/01/20 03/01/20 00:00 03:45 04:33 WBC 23.1 H RBC Hgb Hct MCV MCH 27 L RDW 15.3 H Plt Count Lymph % (Auto) [place] % (Auto) Eos % (Auto) Lymph # (Auto) [place] # (Auto) Eos # (Auto) Seg Neutrophils % Seg Neuts % (Manual) 92.0 H Lymphocytes % (Manual) 6.0 L Monocytes % (Manual) Basophils % (Manual) Seg Neutrophils # Seg Neutrophils # Man 21.3 H Lymphocytes # (Manual) Monocytes # (Manual) Eosinophils # (Manual) 0.5 H Basophils # (Manual) PT INR D-Dimer ABG pH 7.492 H POC ABG pCO2 POC ABG pO2 ABG pO2 157.1 H ABG HCO3 32.3 H ABG O2 Saturation ABG Base Excess 8.1 H ABG Hemoglobin 13.2 L ABG Oxyhemoglobin ABG Potassium ABG Glucose Oxyhemoglobin Carboxyhemoglobin Sodium Potassium Chloride Carbon Dioxide BUN Creatinine Glucose POC Glucose 109 H Calcium Ferritin Total Bilirubin Alkaline Phosphatase Lactate Dehydrogenase Total Creatine Kinase CK-MB (CK-2) Rel Index Troponin T C-Reactive Protein Total Protein Albumin Prealbumin LDL Cholesterol Direct HDL Cholesterol Arterial Blood Glucose Arterial Blood Ionized Calcium Urine WBC (Auto) 03/01/20 03/01/20 03/01/20 04:33 05:29 12:32 WBC RBC Hgb Hct MCV MCH RDW Plt Count Lymph % (Auto) [place] % (Auto) Eos % (Auto) Lymph # (Auto) [place] # (Auto) Eos # (Auto) Seg Neutrophils % Seg Neuts % (Manual) Lymphocytes % (Manual) Monocytes % (Manual) Basophils % (Manual) Seg Neutrophils # Seg Neutrophils # Man Lymphocytes # (Manual) Monocytes # (Manual) Eosinophils # (Manual) Basophils # (Manual) PT INR D-Dimer ABG pH POC ABG pCO2 POC ABG pO2 ABG pO2 ABG HCO3 ABG O2 Saturation ABG Base Excess ABG Hemoglobin ABG Oxyhemoglobin ABG Potassium ABG Glucose Oxyhemoglobin Carboxyhemoglobin Sodium 146 H Potassium Chloride Carbon Dioxide 32 H BUN Creatinine < 0.2 L Glucose 120 H POC Glucose 120 H 128 H Calcium Ferritin Total Bilirubin Alkaline Phosphatase Lactate Dehydrogenase Total Creatine Kinase CK-MB (CK-2) Rel Index Troponin T C-Reactive Protein Total Protein Albumin Prealbumin LDL Cholesterol Direct HDL Cholesterol Arterial Blood Glucose Arterial Blood Ionized Calcium Urine WBC (Auto) 03/01/20 03/01/20 03/02/20 17:38 23:46 06:13 WBC RBC Hgb Hct MCV MCH RDW Plt Count Lymph % (Auto) [place] % (Auto) Eos % (Auto) Lymph # (Auto) [place] # (Auto) Eos # (Auto) Seg Neutrophils % Seg Neuts % (Manual) Lymphocytes % (Manual) Monocytes % (Manual) Basophils % (Manual) Seg Neutrophils # Seg Neutrophils # Man Lymphocytes # (Manual) Monocytes # (Manual) Eosinophils # (Manual) Basophils # (Manual) PT INR D-Dimer ABG pH POC ABG pCO2 POC ABG pO2 ABG pO2 ABG HCO3 ABG O2 Saturation ABG Base Excess ABG Hemoglobin ABG Oxyhemoglobin ABG Potassium ABG Glucose Oxyhemoglobin Carboxyhemoglobin Sodium Potassium Chloride Carbon Dioxide BUN Creatinine Glucose POC Glucose 114 H 121 H 120 H Calcium Ferritin Total Bilirubin Alkaline Phosphatase Lactate Dehydrogenase Total Creatine Kinase CK-MB (CK-2) Rel Index Troponin T C-Reactive Protein Total Protein Albumin Prealbumin LDL Cholesterol Direct HDL Cholesterol Arterial Blood Glucose Arterial Blood Ionized Calcium Urine WBC (Auto) 03/02/20 03/02/20 03/03/20 09:47 09:47 10:21 WBC 23.6 H RBC Hgb Hct MCV MCH RDW 15.3 H Plt Count 494 H Lymph % (Auto) [place] % (Auto) Eos % (Auto) Lymph # (Auto) [place] # (Auto) Eos # (Auto) Seg Neutrophils % Seg Neuts % (Manual) 85.0 H Lymphocytes % (Manual) 6.0 L Monocytes % (Manual) Basophils % (Manual) Seg Neutrophils # Seg Neutrophils # Man 20.1 H Lymphocytes # (Manual) Monocytes # (Manual) 1.7 H Eosinophils # (Manual) Basophils # (Manual) PT INR D-Dimer ABG pH POC ABG pCO2 POC ABG pO2 ABG pO2 ABG HCO3 ABG O2 Saturation ABG Base Excess ABG Hemoglobin ABG Oxyhemoglobin ABG Potassium 3.3 L ABG Glucose 158 H Oxyhemoglobin Carboxyhemoglobin Sodium Potassium Chloride Carbon Dioxide BUN Creatinine < 0.2 L Glucose 177 H POC Glucose Calcium Ferritin Total Bilirubin Alkaline Phosphatase Lactate Dehydrogenase Total Creatine Kinase CK-MB (CK-2) Rel Index Troponin T C-Reactive Protein Total Protein Albumin Prealbumin LDL Cholesterol Direct HDL Cholesterol Arterial Blood Glucose 158 H Arterial Blood Ionized Calcium Urine WBC (Auto) 03/03/20 03/04/20 03/04/20 21:30 00:00 12:23 WBC RBC Hgb Hct MCV MCH RDW Plt Count Lymph % (Auto) [place] % (Auto) Eos % (Auto) Lymph # (Auto) [place] # (Auto) Eos # (Auto) Seg Neutrophils % Seg Neuts % (Manual) Lymphocytes % (Manual) Monocytes % (Manual) Basophils % (Manual) Seg Neutrophils # Seg Neutrophils # Man Lymphocytes # (Manual) Monocytes # (Manual) Eosinophils # (Manual) Basophils # (Manual) PT INR D-Dimer ABG pH 7.328 L POC ABG pCO2 POC ABG pO2 ABG pO2 68.4 L ABG HCO3 35.0 H ABG O2 Saturation 93.9 L ABG Base Excess 6.8 H ABG Hemoglobin 12.7 L ABG Oxyhemoglobin ABG Potassium ABG Glucose Oxyhemoglobin 91.9 L Carboxyhemoglobin Sodium Potassium Chloride Carbon Dioxide BUN Creatinine Glucose POC Glucose 187 H 163 H Calcium Ferritin Total Bilirubin Alkaline Phosphatase Lactate Dehydrogenase Total Creatine Kinase CK-MB (CK-2) Rel Index Troponin T C-Reactive Protein Total Protein Albumin Prealbumin LDL Cholesterol Direct HDL Cholesterol Arterial Blood Glucose Arterial Blood Ionized Calcium Urine WBC (Auto) 03/04/20 03/04/20 03/05/20 18:15 21:30 06:02 WBC RBC Hgb Hct MCV MCH RDW Plt Count Lymph % (Auto) [place] % (Auto) Eos % (Auto) Lymph # (Auto) [place] # (Auto) Eos # (Auto) Seg Neutrophils % Seg Neuts % (Manual) Lymphocytes % (Manual) Monocytes % (Manual) Basophils % (Manual) Seg Neutrophils # Seg Neutrophils # Man Lymphocytes # (Manual) Monocytes # (Manual) Eosinophils # (Manual) Basophils # (Manual) PT INR D-Dimer ABG pH 7.297 L POC ABG pCO2 POC ABG pO2 ABG pO2 ABG HCO3 41.0 H ABG O2 Saturation ABG Base Excess 11.0 H ABG Hemoglobin 13.1 L ABG Oxyhemoglobin ABG Potassium ABG Glucose Oxyhemoglobin 94.5 L Carboxyhemoglobin Sodium Potassium Chloride Carbon Dioxide BUN Creatinine Glucose POC Glucose 192 H 127 H Calcium Ferritin Total Bilirubin Alkaline Phosphatase Lactate Dehydrogenase Total Creatine Kinase CK-MB (CK-2) Rel Index Troponin T C-Reactive Protein Total Protein Albumin Prealbumin LDL Cholesterol Direct HDL Cholesterol Arterial Blood Glucose Arterial Blood Ionized Calcium Urine WBC (Auto) 03/05/20 03/05/20 03/06/20 12:09 16:42 00:24 WBC RBC Hgb Hct MCV MCH RDW Plt Count Lymph % (Auto) [place] % (Auto) Eos % (Auto) Lymph # (Auto) [place] # (Auto) Eos # (Auto) Seg Neutrophils % Seg Neuts % (Manual) Lymphocytes % (Manual) Monocytes % (Manual) Basophils % (Manual) Seg Neutrophils # Seg Neutrophils # Man Lymphocytes # (Manual) Monocytes # (Manual) Eosinophils # (Manual) Basophils # (Manual) PT INR D-Dimer ABG pH POC ABG pCO2 POC ABG pO2 ABG pO2 ABG HCO3 ABG O2 Saturation ABG Base Excess ABG Hemoglobin ABG Oxyhemoglobin ABG Potassium ABG Glucose Oxyhemoglobin Carboxyhemoglobin Sodium Potassium Chloride Carbon Dioxide BUN Creatinine Glucose POC Glucose 147 H 114 H 134 H Calcium Ferritin Total Bilirubin Alkaline Phosphatase Lactate Dehydrogenase Total Creatine Kinase CK-MB (CK-2) Rel Index Troponin T C-Reactive Protein Total Protein Albumin Prealbumin LDL Cholesterol Direct HDL Cholesterol Arterial Blood Glucose Arterial Blood Ionized Calcium Urine WBC (Auto) 03/06/20 03/06/20 03/06/20 04:34 05:53 06:08 WBC 25.4 H RBC Hgb 10.5 L Hct 32.7 L MCV MCH 27 L RDW 15.3 H Plt Count 634 H Lymph % (Auto) [place] % (Auto) Eos % (Auto) Lymph # (Auto) [place] # (Auto) Eos # (Auto) Seg Neutrophils % Seg Neuts % (Manual) 88.0 H Lymphocytes % (Manual) 2.0 L Monocytes % (Manual) 8.0 H Basophils % (Manual) Seg Neutrophils # Seg Neutrophils # Man 22.4 H Lymphocytes # (Manual) 0.5 L Monocytes # (Manual) 2.0 H Eosinophils # (Manual) Basophils # (Manual) PT INR D-Dimer ABG pH POC ABG pCO2 POC ABG pO2 ABG pO2 ABG HCO3 37.9 H ABG O2 Saturation ABG Base Excess 11.4 H ABG Hemoglobin 10.6 L ABG Oxyhemoglobin ABG Potassium ABG Glucose Oxyhemoglobin 94.7 L Carboxyhemoglobin Sodium Potassium Chloride Carbon Dioxide BUN Creatinine Glucose POC Glucose 135 H Calcium Ferritin Total Bilirubin Alkaline Phosphatase Lactate Dehydrogenase Total Creatine Kinase CK-MB (CK-2) Rel Index Troponin T C-Reactive Protein Total Protein Albumin Prealbumin LDL Cholesterol Direct HDL Cholesterol Arterial Blood Glucose Arterial Blood Ionized Calcium Urine WBC (Auto) 03/06/20 03/06/20 03/06/20 06:08 12:19 19:10 WBC RBC Hgb Hct MCV MCH RDW Plt Count Lymph % (Auto) [place] % (Auto) Eos % (Auto) Lymph # (Auto) [place] # (Auto) Eos # (Auto) Seg Neutrophils % Seg Neuts % (Manual) Lymphocytes % (Manual) Monocytes % (Manual) Basophils % (Manual) Seg Neutrophils # Seg Neutrophils # Man Lymphocytes # (Manual) Monocytes # (Manual) Eosinophils # (Manual) Basophils # (Manual) PT INR D-Dimer ABG pH POC ABG pCO2 POC ABG pO2 ABG pO2 ABG HCO3 ABG O2 Saturation ABG Base Excess ABG Hemoglobin ABG Oxyhemoglobin ABG Potassium ABG Glucose Oxyhemoglobin Carboxyhemoglobin Sodium 150 H D Potassium Chloride Carbon Dioxide 39 H D BUN 23 H Creatinine < 0.2 L Glucose 144 H POC Glucose 169 H 152 H Calcium Ferritin Total Bilirubin Alkaline Phosphatase Lactate Dehydrogenase Total Creatine Kinase CK-MB (CK-2) Rel Index Troponin T C-Reactive Protein Total Protein Albumin 3.3 L Prealbumin LDL Cholesterol Direct HDL Cholesterol Arterial Blood Glucose Arterial Blood Ionized Calcium Urine WBC (Auto) 03/06/20 03/07/20 03/07/20 23:58 04:25 04:25 WBC 22.1 H RBC Hgb 10.9 L Hct 32.9 L MCV MCH RDW 15.5 H Plt Count 739 H Lymph % (Auto) 7.8 L [place] % (Auto) Eos % (Auto) Lymph # (Auto) [place] # (Auto) 1.3 H Eos # (Auto) Seg Neutrophils % 85.5 H Seg Neuts % (Manual) Lymphocytes % (Manual) Monocytes % (Manual) Basophils % (Manual) Seg Neutrophils # 18.9 H Seg Neutrophils # Man Lymphocytes # (Manual) Monocytes # (Manual) Eosinophils # (Manual) Basophils # (Manual) PT INR D-Dimer ABG pH POC ABG pCO2 POC ABG pO2 ABG pO2 ABG HCO3 ABG O2 Saturation ABG Base Excess ABG Hemoglobin ABG Oxyhemoglobin ABG Potassium ABG Glucose Oxyhemoglobin Carboxyhemoglobin Sodium 146 H Potassium Chloride Carbon Dioxide 37 H BUN Creatinine < 0.2 L Glucose 118 H POC Glucose 111 H Calcium Ferritin Total Bilirubin Alkaline Phosphatase Lactate Dehydrogenase Total Creatine Kinase CK-MB (CK-2) Rel Index Troponin T C-Reactive Protein Total Protein Albumin 3.7 L Prealbumin LDL Cholesterol Direct HDL Cholesterol Arterial Blood Glucose Arterial Blood Ionized Calcium Urine WBC (Auto) 03/07/20 03/07/20 03/07/20 05:20 17:45 23:32 WBC RBC Hgb Hct MCV MCH RDW Plt Count Lymph % (Auto) [place] % (Auto) Eos % (Auto) Lymph # (Auto) [place] # (Auto) Eos # (Auto) Seg Neutrophils % Seg Neuts % (Manual) Lymphocytes % (Manual) Monocytes % (Manual) Basophils % (Manual) Seg Neutrophils # Seg Neutrophils # Man Lymphocytes # (Manual) Monocytes # (Manual) Eosinophils # (Manual) Basophils # (Manual) PT INR D-Dimer ABG pH POC ABG pCO2 POC ABG pO2 ABG pO2 ABG HCO3 ABG O2 Saturation ABG Base Excess ABG Hemoglobin ABG Oxyhemoglobin ABG Potassium ABG Glucose Oxyhemoglobin Carboxyhemoglobin Sodium Potassium Chloride Carbon Dioxide BUN Creatinine Glucose POC Glucose 113 H 124 H 210 H Calcium Ferritin Total Bilirubin Alkaline Phosphatase Lactate Dehydrogenase Total Creatine Kinase CK-MB (CK-2) Rel Index Troponin T C-Reactive Protein Total Protein Albumin Prealbumin LDL Cholesterol Direct HDL Cholesterol Arterial Blood Glucose Arterial Blood Ionized Calcium Urine WBC (Auto) 03/08/20 03/08/20 03/08/20 05:35 06:43 06:43 WBC 28.9 H RBC 3.53 L Hgb 9.7 L Hct 30.3 L MCV MCH RDW 15.6 H Plt Count 578 H Lymph % (Auto) [place] % (Auto) Eos % (Auto) Lymph # (Auto) [place] # (Auto) Eos # (Auto) Seg Neutrophils % Seg Neuts % (Manual) 93.0 H Lymphocytes % (Manual) 4.0 L Monocytes % (Manual) Basophils % (Manual) Seg Neutrophils # Seg Neutrophils # Man 26.9 H Lymphocytes # (Manual) Monocytes # (Manual) Eosinophils # (Manual) Basophils # (Manual) PT INR D-Dimer ABG pH POC ABG pCO2 POC ABG pO2 ABG pO2 ABG HCO3 ABG O2 Saturation ABG Base Excess ABG Hemoglobin ABG Oxyhemoglobin ABG Potassium ABG Glucose Oxyhemoglobin Carboxyhemoglobin Sodium 146 H Potassium Chloride Carbon Dioxide 35 H BUN 34 H Creatinine 0.3 L D Glucose 125 H POC Glucose 147 H Calcium Ferritin Total Bilirubin Alkaline Phosphatase Lactate Dehydrogenase Total Creatine Kinase CK-MB (CK-2) Rel Index Troponin T C-Reactive Protein Total Protein 5.9 L Albumin 3.2 L Prealbumin LDL Cholesterol Direct HDL Cholesterol Arterial Blood Glucose Arterial Blood Ionized Calcium Urine WBC (Auto) 03/08/20 03/08/20 03/08/20 08:57 11:14 12:34 WBC RBC Hgb Hct MCV MCH RDW Plt Count Lymph % (Auto) [place] % (Auto) Eos % (Auto) Lymph # (Auto) [place] # (Auto) Eos # (Auto) Seg Neutrophils % Seg Neuts % (Manual) Lymphocytes % (Manual) Monocytes % (Manual) Basophils % (Manual) Seg Neutrophils # Seg Neutrophils # Man Lymphocytes # (Manual) Monocytes # (Manual) Eosinophils # (Manual) Basophils # (Manual) PT INR D-Dimer ABG pH POC ABG pCO2 63.1 H POC ABG pO2 ABG pO2 ABG HCO3 ABG O2 Saturation ABG Base Excess ABG Hemoglobin 10.9 L ABG Oxyhemoglobin ABG Potassium ABG Glucose 176 H Oxyhemoglobin Carboxyhemoglobin Sodium Potassium Chloride Carbon Dioxide BUN Creatinine Glucose POC Glucose 171 H Calcium Ferritin Total Bilirubin Alkaline Phosphatase Lactate Dehydrogenase Total Creatine Kinase CK-MB (CK-2) Rel Index Troponin T C-Reactive Protein Total Protein Albumin Prealbumin LDL Cholesterol Direct HDL Cholesterol Arterial Blood Glucose 176 H Arterial Blood Ionized Calcium 4.5 L Urine WBC (Auto) 10.0 H 03/08/20 03/08/20 03/09/20 18:02 23:43 05:49 WBC RBC Hgb Hct MCV MCH RDW Plt Count Lymph % (Auto) [place] % (Auto) Eos % (Auto) Lymph # (Auto) [place] # (Auto) Eos # (Auto) Seg Neutrophils % Seg Neuts % (Manual) Lymphocytes % (Manual) Monocytes % (Manual) Basophils % (Manual) Seg Neutrophils # Seg Neutrophils # Man Lymphocytes # (Manual) Monocytes # (Manual) Eosinophils # (Manual) Basophils # (Manual) PT INR D-Dimer ABG pH POC ABG pCO2 POC ABG pO2 ABG pO2 ABG HCO3 ABG O2 Saturation ABG Base Excess ABG Hemoglobin ABG Oxyhemoglobin ABG Potassium ABG Glucose Oxyhemoglobin Carboxyhemoglobin Sodium Potassium Chloride Carbon Dioxide BUN Creatinine Glucose POC Glucose 157 H 134 H 163 H Calcium Ferritin Total Bilirubin Alkaline Phosphatase Lactate Dehydrogenase Total Creatine Kinase CK-MB (CK-2) Rel Index Troponin T C-Reactive Protein Total Protein Albumin Prealbumin LDL Cholesterol Direct HDL Cholesterol Arterial Blood Glucose Arterial Blood Ionized Calcium Urine WBC (Auto) 03/09/20 03/09/20 03/09/20 08:35 08:35 12:11 WBC 23.4 H RBC 3.36 L Hgb 9.3 L Hct 28.8 L MCV MCH RDW 15.9 H Plt Count 521 H Lymph % (Auto) [place] % (Auto) Eos % (Auto) Lymph # (Auto) [place] # (Auto) Eos # (Auto) Seg Neutrophils % Seg Neuts % (Manual) 87.0 H Lymphocytes % (Manual) 4.0 L Monocytes % (Manual) 9.0 H Basophils % (Manual) Seg Neutrophils # Seg Neutrophils # Man 20.4 H Lymphocytes # (Manual) 0.9 L Monocytes # (Manual) 2.1 H Eosinophils # (Manual) Basophils # (Manual) PT INR D-Dimer ABG pH POC ABG pCO2 POC ABG pO2 ABG pO2 ABG HCO3 ABG O2 Saturation ABG Base Excess ABG Hemoglobin ABG Oxyhemoglobin ABG Potassium ABG Glucose Oxyhemoglobin Carboxyhemoglobin Sodium 147 H Potassium Chloride Carbon Dioxide 37 H BUN 63 H Creatinine Glucose 154 H POC Glucose 128 H Calcium Ferritin Total Bilirubin Alkaline Phosphatase Lactate Dehydrogenase Total Creatine Kinase CK-MB (CK-2) Rel Index Troponin T C-Reactive Protein Total Protein Albumin Prealbumin LDL Cholesterol Direct HDL Cholesterol Arterial Blood Glucose Arterial Blood Ionized Calcium Urine WBC (Auto) 03/09/20 03/10/20 03/10/20 17:51 00:25 05:41 WBC RBC Hgb Hct MCV MCH RDW Plt Count Lymph % (Auto) [place] % (Auto) Eos % (Auto) Lymph # (Auto) [place] # (Auto) Eos # (Auto) Seg Neutrophils % Seg Neuts % (Manual) Lymphocytes % (Manual) Monocytes % (Manual) Basophils % (Manual) Seg Neutrophils # Seg Neutrophils # Man Lymphocytes # (Manual) Monocytes # (Manual) Eosinophils # (Manual) Basophils # (Manual) PT INR D-Dimer ABG pH POC ABG pCO2 POC ABG pO2 ABG pO2 ABG HCO3 ABG O2 Saturation ABG Base Excess ABG Hemoglobin ABG Oxyhemoglobin ABG Potassium ABG Glucose Oxyhemoglobin Carboxyhemoglobin Sodium Potassium Chloride Carbon Dioxide BUN Creatinine Glucose POC Glucose 127 H 128 H 153 H Calcium Ferritin Total Bilirubin Alkaline Phosphatase Lactate Dehydrogenase Total Creatine Kinase CK-MB (CK-2) Rel Index Troponin T C-Reactive Protein Total Protein Albumin Prealbumin LDL Cholesterol Direct HDL Cholesterol Arterial Blood Glucose Arterial Blood Ionized Calcium Urine WBC (Auto) 03/10/20 03/10/20 03/10/20 06:14 06:14 12:02 WBC 18.3 H RBC 3.45 L Hgb 9.5 L Hct 29.5 L MCV MCH RDW 16.1 H Plt Count 494 H Lymph % (Auto) [place] % (Auto) Eos % (Auto) Lymph # (Auto) [place] # (Auto) Eos # (Auto) Seg Neutrophils % Seg Neuts % (Manual) 95.0 H Lymphocytes % (Manual) 1.0 L Monocytes % (Manual) Basophils % (Manual) Seg Neutrophils # Seg Neutrophils # Man 17.4 H Lymphocytes # (Manual) 0.2 L Monocytes # (Manual) Eosinophils # (Manual) Basophils # (Manual) PT INR D-Dimer ABG pH POC ABG pCO2 POC ABG pO2 ABG pO2 ABG HCO3 ABG O2 Saturation ABG Base Excess ABG Hemoglobin ABG Oxyhemoglobin ABG Potassium ABG Glucose Oxyhemoglobin Carboxyhemoglobin Sodium 149 H Potassium Chloride Carbon Dioxide 35 H BUN 34 H Creatinine 0.2 L D Glucose 177 H POC Glucose 151 H Calcium Ferritin Total Bilirubin Alkaline Phosphatase Lactate Dehydrogenase Total Creatine Kinase CK-MB (CK-2) Rel Index Troponin T C-Reactive Protein Total Protein Albumin Prealbumin LDL Cholesterol Direct HDL Cholesterol Arterial Blood Glucose Arterial Blood Ionized Calcium Urine WBC (Auto) 03/10/20 03/10/20 03/11/20 17:41 23:53 05:02 WBC RBC Hgb Hct MCV MCH RDW Plt Count Lymph % (Auto) [place] % (Auto) Eos % (Auto) Lymph # (Auto) [place] # (Auto) Eos # (Auto) Seg Neutrophils % Seg Neuts % (Manual) Lymphocytes % (Manual) Monocytes % (Manual) Basophils % (Manual) Seg Neutrophils # Seg Neutrophils # Man Lymphocytes # (Manual) Monocytes # (Manual) Eosinophils # (Manual) Basophils # (Manual) PT INR D-Dimer ABG pH POC ABG pCO2 POC ABG pO2 ABG pO2 ABG HCO3 ABG O2 Saturation ABG Base Excess ABG Hemoglobin ABG Oxyhemoglobin ABG Potassium ABG Glucose Oxyhemoglobin Carboxyhemoglobin Sodium Potassium Chloride Carbon Dioxide BUN Creatinine Glucose POC Glucose 168 H 142 H 146 H Calcium Ferritin Total Bilirubin Alkaline Phosphatase Lactate Dehydrogenase Total Creatine Kinase CK-MB (CK-2) Rel Index Troponin T C-Reactive Protein Total Protein Albumin Prealbumin LDL Cholesterol Direct HDL Cholesterol Arterial Blood Glucose Arterial Blood Ionized Calcium Urine WBC (Auto) 03/11/20 03/11/20 03/11/20 11:30 14:01 14:01 WBC 19.7 H RBC 3.04 L Hgb 8.7 L Hct 25.8 L MCV MCH RDW 15.6 H Plt Count Lymph % (Auto) [place] % (Auto) Eos % (Auto) Lymph # (Auto) [place] # (Auto) Eos # (Auto) Seg Neutrophils % Seg Neuts % (Manual) Lymphocytes % (Manual) Monocytes % (Manual) Basophils % (Manual) Seg Neutrophils # Seg Neutrophils # Man Lymphocytes # (Manual) Monocytes # (Manual) Eosinophils # (Manual) Basophils # (Manual) PT INR D-Dimer ABG pH POC ABG pCO2 POC ABG pO2 ABG pO2 ABG HCO3 ABG O2 Saturation ABG Base Excess ABG Hemoglobin ABG Oxyhemoglobin ABG Potassium ABG Glucose Oxyhemoglobin Carboxyhemoglobin Sodium 151 H Potassium Chloride Carbon Dioxide 37 H BUN Creatinine < 0.2 L Glucose 171 H POC Glucose 248 H Calcium Ferritin Total Bilirubin Alkaline Phosphatase Lactate Dehydrogenase Total Creatine Kinase CK-MB (CK-2) Rel Index Troponin T C-Reactive Protein Total Protein Albumin Prealbumin LDL Cholesterol Direct HDL Cholesterol Arterial Blood Glucose Arterial Blood Ionized Calcium Urine WBC (Auto) 03/11/20 03/11/20 03/12/20 17:09 23:52 04:39 WBC 19.9 H RBC 3.16 L Hgb 8.9 L Hct 27.5 L MCV MCH RDW 15.7 H Plt Count Lymph % (Auto) 6.8 L [place] % (Auto) Eos % (Auto) Lymph # (Auto) [place] # (Auto) 1.2 H Eos # (Auto) Seg Neutrophils % 86.0 H Seg Neuts % (Manual) Lymphocytes % (Manual) Monocytes % (Manual) Basophils % (Manual) Seg Neutrophils # 17.1 H Seg Neutrophils # Man Lymphocytes # (Manual) Monocytes # (Manual) Eosinophils # (Manual) Basophils # (Manual) PT INR D-Dimer ABG pH POC ABG pCO2 POC ABG pO2 ABG pO2 ABG HCO3 ABG O2 Saturation ABG Base Excess ABG Hemoglobin ABG Oxyhemoglobin ABG Potassium ABG Glucose Oxyhemoglobin Carboxyhemoglobin Sodium Potassium Chloride Carbon Dioxide BUN Creatinine Glucose POC Glucose 124 H 131 H Calcium Ferritin Total Bilirubin Alkaline Phosphatase Lactate Dehydrogenase Total Creatine Kinase CK-MB (CK-2) Rel Index Troponin T C-Reactive Protein Total Protein Albumin Prealbumin LDL Cholesterol Direct HDL Cholesterol Arterial Blood Glucose Arterial Blood Ionized Calcium Urine WBC (Auto) 03/12/20 03/12/20 03/12/20 04:39 05:28 11:34 WBC RBC Hgb Hct MCV MCH RDW Plt Count Lymph % (Auto) [place] % (Auto) Eos % (Auto) Lymph # (Auto) [place] # (Auto) Eos # (Auto) Seg Neutrophils % Seg Neuts % (Manual) Lymphocytes % (Manual) Monocytes % (Manual) Basophils % (Manual) Seg Neutrophils # Seg Neutrophils # Man Lymphocytes # (Manual) Monocytes # (Manual) Eosinophils # (Manual) Basophils # (Manual) PT INR D-Dimer ABG pH POC ABG pCO2 POC ABG pO2 ABG pO2 ABG HCO3 ABG O2 Saturation ABG Base Excess ABG Hemoglobin ABG Oxyhemoglobin ABG Potassium ABG Glucose Oxyhemoglobin Carboxyhemoglobin Sodium 147 H Potassium Chloride Carbon Dioxide 40 H BUN Creatinine < 0.2 L Glucose 175 H POC Glucose 167 H 144 H Calcium Ferritin Total Bilirubin Alkaline Phosphatase Lactate Dehydrogenase Total Creatine Kinase CK-MB (CK-2) Rel Index Troponin T C-Reactive Protein Total Protein Albumin Prealbumin LDL Cholesterol Direct HDL Cholesterol Arterial Blood Glucose Arterial Blood Ionized Calcium Urine WBC (Auto) 03/12/20 03/12/20 03/13/20 17:32 23:57 05:57 WBC RBC Hgb Hct MCV MCH RDW Plt Count Lymph % (Auto) [place] % (Auto) Eos % (Auto) Lymph # (Auto) [place] # (Auto) Eos # (Auto) Seg Neutrophils % Seg Neuts % (Manual) Lymphocytes % (Manual) Monocytes % (Manual) Basophils % (Manual) Seg Neutrophils # Seg Neutrophils # Man Lymphocytes # (Manual) Monocytes # (Manual) Eosinophils # (Manual) Basophils # (Manual) PT INR D-Dimer ABG pH POC ABG pCO2 POC ABG pO2 ABG pO2 ABG HCO3 ABG O2 Saturation ABG Base Excess ABG Hemoglobin ABG Oxyhemoglobin ABG Potassium ABG Glucose Oxyhemoglobin Carboxyhemoglobin Sodium Potassium Chloride Carbon Dioxide BUN Creatinine Glucose POC Glucose 141 H 137 H 161 H Calcium Ferritin Total Bilirubin Alkaline Phosphatase Lactate Dehydrogenase Total Creatine Kinase CK-MB (CK-2) Rel Index Troponin T C-Reactive Protein Total Protein Albumin Prealbumin LDL Cholesterol Direct HDL Cholesterol Arterial Blood Glucose Arterial Blood Ionized Calcium Urine WBC (Auto) 03/13/20 03/13/20 03/13/20 12:28 14:14 18:39 WBC RBC Hgb Hct MCV MCH RDW Plt Count Lymph % (Auto) [place] % (Auto) Eos % (Auto) Lymph # (Auto) [place] # (Auto) Eos # (Auto) Seg Neutrophils % Seg Neuts % (Manual) Lymphocytes % (Manual) Monocytes % (Manual) Basophils % (Manual) Seg Neutrophils # Seg Neutrophils # Man Lymphocytes # (Manual) Monocytes # (Manual) Eosinophils # (Manual) Basophils # (Manual) PT INR D-Dimer ABG pH POC ABG pCO2 POC ABG pO2 ABG pO2 ABG HCO3 ABG O2 Saturation ABG Base Excess ABG Hemoglobin ABG Oxyhemoglobin ABG Potassium ABG Glucose Oxyhemoglobin Carboxyhemoglobin Sodium Potassium Chloride Carbon Dioxide 39 H BUN Creatinine < 0.2 L Glucose 129 H POC Glucose 130 H 125 H Calcium Ferritin Total Bilirubin Alkaline Phosphatase Lactate Dehydrogenase Total Creatine Kinase CK-MB (CK-2) Rel Index Troponin T C-Reactive Protein Total Protein Albumin Prealbumin LDL Cholesterol Direct HDL Cholesterol Arterial Blood Glucose Arterial Blood Ionized Calcium Urine WBC (Auto) 03/13/20 03/14/20 03/14/20 23:33 05:24 08:07 WBC 16.8 H RBC 2.81 L Hgb 7.9 L Hct 23.9 L MCV MCH RDW 15.9 H Plt Count Lymph % (Auto) [place] % (Auto) Eos % (Auto) Lymph # (Auto) [place] # (Auto) Eos # (Auto) Seg Neutrophils % Seg Neuts % (Manual) 84.0 H Lymphocytes % (Manual) 10.0 L Monocytes % (Manual) Basophils % (Manual) Seg Neutrophils # Seg Neutrophils # Man 14.1 H Lymphocytes # (Manual) Monocytes # (Manual) Eosinophils # (Manual) Basophils # (Manual) PT INR D-Dimer ABG pH POC ABG pCO2 POC ABG pO2 ABG pO2 ABG HCO3 ABG O2 Saturation ABG Base Excess ABG Hemoglobin ABG Oxyhemoglobin ABG Potassium ABG Glucose Oxyhemoglobin Carboxyhemoglobin Sodium Potassium Chloride Carbon Dioxide BUN Creatinine Glucose POC Glucose 146 H 125 H Calcium Ferritin Total Bilirubin Alkaline Phosphatase Lactate Dehydrogenase Total Creatine Kinase CK-MB (CK-2) Rel Index Troponin T C-Reactive Protein Total Protein Albumin Prealbumin LDL Cholesterol Direct HDL Cholesterol Arterial Blood Glucose Arterial Blood Ionized Calcium Urine WBC (Auto) 03/14/20 03/14/20 03/14/20 08:07 12:21 18:26 WBC RBC Hgb Hct MCV MCH RDW Plt Count Lymph % (Auto) [place] % (Auto) Eos % (Auto) Lymph # (Auto) [place] # (Auto) Eos # (Auto) Seg Neutrophils % Seg Neuts % (Manual) Lymphocytes % (Manual) Monocytes % (Manual) Basophils % (Manual) Seg Neutrophils # Seg Neutrophils # Man Lymphocytes # (Manual) Monocytes # (Manual) Eosinophils # (Manual) Basophils # (Manual) PT INR D-Dimer ABG pH POC ABG pCO2 POC ABG pO2 ABG pO2 ABG HCO3 ABG O2 Saturation ABG Base Excess ABG Hemoglobin ABG Oxyhemoglobin ABG Potassium ABG Glucose Oxyhemoglobin Carboxyhemoglobin Sodium Potassium Chloride 97.0 L Carbon Dioxide 37 H BUN Creatinine < 0.2 L Glucose 129 H POC Glucose 109 H 142 H Calcium 8.3 L Ferritin Total Bilirubin Alkaline Phosphatase Lactate Dehydrogenase Total Creatine Kinase CK-MB (CK-2) Rel Index Troponin T C-Reactive Protein Total Protein Albumin Prealbumin LDL Cholesterol Direct HDL Cholesterol Arterial Blood Glucose Arterial Blood Ionized Calcium Urine WBC (Auto) 03/14/20 03/15/20 03/15/20 23:57 05:46 08:06 WBC 19.7 H RBC 3.29 L Hgb 9.1 L Hct 28.0 L MCV MCH RDW 15.9 H Plt Count Lymph % (Auto) [place] % (Auto) Eos % (Auto) Lymph # (Auto) [place] # (Auto) Eos # (Auto) Seg Neutrophils % Seg Neuts % (Manual) Lymphocytes % (Manual) Monocytes % (Manual) Basophils % (Manual) Seg Neutrophils # Seg Neutrophils # Man Lymphocytes # (Manual) Monocytes # (Manual) Eosinophils # (Manual) Basophils # (Manual) PT INR D-Dimer ABG pH POC ABG pCO2 POC ABG pO2 ABG pO2 ABG HCO3 ABG O2 Saturation ABG Base Excess ABG Hemoglobin ABG Oxyhemoglobin ABG Potassium ABG Glucose Oxyhemoglobin Carboxyhemoglobin Sodium Potassium Chloride Carbon Dioxide BUN Creatinine Glucose POC Glucose 157 H 118 H Calcium Ferritin Total Bilirubin Alkaline Phosphatase Lactate Dehydrogenase Total Creatine Kinase CK-MB (CK-2) Rel Index Troponin T C-Reactive Protein Total Protein Albumin Prealbumin LDL Cholesterol Direct HDL Cholesterol Arterial Blood Glucose Arterial Blood Ionized Calcium Urine WBC (Auto) 03/15/20 03/15/20 03/15/20 08:06 12:44 18:09 WBC RBC Hgb Hct MCV MCH RDW Plt Count Lymph % (Auto) [place] % (Auto) Eos % (Auto) Lymph # (Auto) [place] # (Auto) Eos # (Auto) Seg Neutrophils % Seg Neuts % (Manual) Lymphocytes % (Manual) Monocytes % (Manual) Basophils % (Manual) Seg Neutrophils # Seg Neutrophils # Man Lymphocytes # (Manual) Monocytes # (Manual) Eosinophils # (Manual) Basophils # (Manual) PT INR D-Dimer ABG pH POC ABG pCO2 POC ABG pO2 ABG pO2 ABG HCO3 ABG O2 Saturation ABG Base Excess ABG Hemoglobin ABG Oxyhemoglobin ABG Potassium ABG Glucose Oxyhemoglobin Carboxyhemoglobin Sodium 136 L Potassium Chloride 93.6 L Carbon Dioxide 37 H BUN Creatinine < 0.2 L Glucose 132 H POC Glucose 151 H 164 H Calcium Ferritin Total Bilirubin Alkaline Phosphatase Lactate Dehydrogenase Total Creatine Kinase CK-MB (CK-2) Rel Index Troponin T C-Reactive Protein Total Protein Albumin Prealbumin LDL Cholesterol Direct HDL Cholesterol Arterial Blood Glucose Arterial Blood Ionized Calcium Urine WBC (Auto) 03/15/20 03/16/20 03/16/20 23:26 05:39 11:58 WBC RBC Hgb Hct MCV MCH RDW Plt Count Lymph % (Auto) [place] % (Auto) Eos % (Auto) Lymph # (Auto) [place] # (Auto) Eos # (Auto) Seg Neutrophils % Seg Neuts % (Manual) Lymphocytes % (Manual) Monocytes % (Manual) Basophils % (Manual) Seg Neutrophils # Seg Neutrophils # Man Lymphocytes # (Manual) Monocytes # (Manual) Eosinophils # (Manual) Basophils # (Manual) PT INR D-Dimer ABG pH POC ABG pCO2 POC ABG pO2 ABG pO2 ABG HCO3 ABG O2 Saturation ABG Base Excess ABG Hemoglobin ABG Oxyhemoglobin ABG Potassium ABG Glucose Oxyhemoglobin Carboxyhemoglobin Sodium Potassium Chloride Carbon Dioxide BUN Creatinine Glucose POC Glucose 136 H 116 H 109 H Calcium Ferritin Total Bilirubin Alkaline Phosphatase Lactate Dehydrogenase Total Creatine Kinase CK-MB (CK-2) Rel Index Troponin T C-Reactive Protein Total Protein Albumin Prealbumin LDL Cholesterol Direct HDL Cholesterol Arterial Blood Glucose Arterial Blood Ionized Calcium Urine WBC (Auto) 03/16/20 03/17/20 03/17/20 23:56 04:40 04:40 WBC 18.0 H RBC 3.33 L Hgb 9.5 L Hct 28.8 L MCV MCH RDW 16.4 H Plt Count 499 H Lymph % (Auto) [place] % (Auto) Eos % (Auto) Lymph # (Auto) [place] # (Auto) Eos # (Auto) Seg Neutrophils % Seg Neuts % (Manual) 82.0 H Lymphocytes % (Manual) 8.0 L Monocytes % (Manual) Basophils % (Manual) Seg Neutrophils # Seg Neutrophils # Man 14.8 H Lymphocytes # (Manual) Monocytes # (Manual) 1.3 H Eosinophils # (Manual) Basophils # (Manual) 0.2 H PT INR D-Dimer ABG pH POC ABG pCO2 POC ABG pO2 ABG pO2 ABG HCO3 ABG O2 Saturation ABG Base Excess ABG Hemoglobin ABG Oxyhemoglobin ABG Potassium ABG Glucose Oxyhemoglobin Carboxyhemoglobin Sodium Potassium Chloride 97.7 L Carbon Dioxide 32 H BUN Creatinine < 0.2 L Glucose 114 H POC Glucose 131 H Calcium Ferritin Total Bilirubin Alkaline Phosphatase Lactate Dehydrogenase Total Creatine Kinase CK-MB (CK-2) Rel Index Troponin T C-Reactive Protein Total Protein Albumin Prealbumin LDL Cholesterol Direct HDL Cholesterol Arterial Blood Glucose Arterial Blood Ionized Calcium Urine WBC (Auto) 03/18/20 03/18/20 03/18/20 00:21 05:21 11:55 WBC RBC Hgb Hct MCV MCH RDW Plt Count Lymph % (Auto) [place] % (Auto) Eos % (Auto) Lymph # (Auto) [place] # (Auto) Eos # (Auto) Seg Neutrophils % Seg Neuts % (Manual) Lymphocytes % (Manual) Monocytes % (Manual) Basophils % (Manual) Seg Neutrophils # Seg Neutrophils # Man Lymphocytes # (Manual) Monocytes # (Manual) Eosinophils # (Manual) Basophils # (Manual) PT INR D-Dimer ABG pH POC ABG pCO2 POC ABG pO2 ABG pO2 ABG HCO3 ABG O2 Saturation ABG Base Excess ABG Hemoglobin ABG Oxyhemoglobin ABG Potassium ABG Glucose Oxyhemoglobin Carboxyhemoglobin Sodium Potassium Chloride Carbon Dioxide BUN Creatinine Glucose POC Glucose 124 H 138 H 119 H Calcium Ferritin Total Bilirubin Alkaline Phosphatase Lactate Dehydrogenase Total Creatine Kinase CK-MB (CK-2) Rel Index Troponin T C-Reactive Protein Total Protein Albumin Prealbumin LDL Cholesterol Direct HDL Cholesterol Arterial Blood Glucose Arterial Blood Ionized Calcium Urine WBC (Auto) 03/18/20 03/18/20 03/19/20 17:03 23:58 05:24 WBC RBC Hgb Hct MCV MCH RDW Plt Count Lymph % (Auto) [place] % (Auto) Eos % (Auto) Lymph # (Auto) [place] # (Auto) Eos # (Auto) Seg Neutrophils % Seg Neuts % (Manual) Lymphocytes % (Manual) Monocytes % (Manual) Basophils % (Manual) Seg Neutrophils # Seg Neutrophils # Man Lymphocytes # (Manual) Monocytes # (Manual) Eosinophils # (Manual) Basophils # (Manual) PT INR D-Dimer ABG pH POC ABG pCO2 POC ABG pO2 ABG pO2 ABG HCO3 ABG O2 Saturation ABG Base Excess ABG Hemoglobin ABG Oxyhemoglobin ABG Potassium ABG Glucose Oxyhemoglobin Carboxyhemoglobin Sodium Potassium Chloride Carbon Dioxide BUN Creatinine Glucose POC Glucose 128 H 128 H 115 H Calcium Ferritin Total Bilirubin Alkaline Phosphatase Lactate Dehydrogenase Total Creatine Kinase CK-MB (CK-2) Rel Index Troponin T C-Reactive Protein Total Protein Albumin Prealbumin LDL Cholesterol Direct HDL Cholesterol Arterial Blood Glucose Arterial Blood Ionized Calcium Urine WBC (Auto) 03/19/20 03/19/20 03/19/20 08:05 08:05 11:56 WBC 16.8 H RBC 3.36 L Hgb 9.4 L Hct 28.8 L MCV MCH RDW 17.4 H Plt Count 567 H Lymph % (Auto) 7.8 L [place] % (Auto) Eos % (Auto) Lymph # (Auto) [place] # (Auto) 1.2 H Eos # (Auto) Seg Neutrophils % 83.5 H Seg Neuts % (Manual) Lymphocytes % (Manual) Monocytes % (Manual) Basophils % (Manual) Seg Neutrophils # 14.1 H Seg Neutrophils # Man Lymphocytes # (Manual) Monocytes # (Manual) Eosinophils # (Manual) Basophils # (Manual) PT INR D-Dimer ABG pH POC ABG pCO2 POC ABG pO2 ABG pO2 ABG HCO3 ABG O2 Saturation ABG Base Excess ABG Hemoglobin ABG Oxyhemoglobin ABG Potassium ABG Glucose Oxyhemoglobin Carboxyhemoglobin Sodium Potassium Chloride Carbon Dioxide 36 H BUN Creatinine < 0.2 L Glucose 135 H POC Glucose 128 H Calcium Ferritin Total Bilirubin Alkaline Phosphatase Lactate Dehydrogenase Total Creatine Kinase CK-MB (CK-2) Rel Index Troponin T C-Reactive Protein Total Protein Albumin Prealbumin LDL Cholesterol Direct HDL Cholesterol Arterial Blood Glucose Arterial Blood Ionized Calcium Urine WBC (Auto) 03/19/20 03/20/20 03/20/20 23:59 05:12 16:52 WBC RBC Hgb Hct MCV MCH RDW Plt Count Lymph % (Auto) [place] % (Auto) Eos % (Auto) Lymph # (Auto) [place] # (Auto) Eos # (Auto) Seg Neutrophils % Seg Neuts % (Manual) Lymphocytes % (Manual) Monocytes % (Manual) Basophils % (Manual) Seg Neutrophils # Seg Neutrophils # Man Lymphocytes # (Manual) Monocytes # (Manual) Eosinophils # (Manual) Basophils # (Manual) PT INR D-Dimer ABG pH POC ABG pCO2 POC ABG pO2 ABG pO2 ABG HCO3 ABG O2 Saturation ABG Base Excess ABG Hemoglobin ABG Oxyhemoglobin ABG Potassium ABG Glucose Oxyhemoglobin Carboxyhemoglobin Sodium Potassium Chloride Carbon Dioxide BUN Creatinine Glucose POC Glucose 120 H 131 H 124 H Calcium Ferritin Total Bilirubin Alkaline Phosphatase Lactate Dehydrogenase Total Creatine Kinase CK-MB (CK-2) Rel Index Troponin T C-Reactive Protein Total Protein Albumin Prealbumin LDL Cholesterol Direct HDL Cholesterol Arterial Blood Glucose Arterial Blood Ionized Calcium Urine WBC (Auto) 03/20/20 03/21/20 03/21/20 23:35 04:50 07:35 WBC 15.2 H RBC 3.39 L Hgb 9.4 L Hct 29.4 L MCV MCH RDW 17.6 H Plt Count 518 H Lymph % (Auto) [place] % (Auto) Eos % (Auto) Lymph # (Auto) [place] # (Auto) Eos # (Auto) Seg Neutrophils % Seg Neuts % (Manual) 83.0 H Lymphocytes % (Manual) 10.0 L Monocytes % (Manual) Basophils % (Manual) 2.0 H Seg Neutrophils # Seg Neutrophils # Man 12.6 H Lymphocytes # (Manual) Monocytes # (Manual) Eosinophils # (Manual) Basophils # (Manual) 0.3 H PT INR D-Dimer ABG pH POC ABG pCO2 POC ABG pO2 ABG pO2 ABG HCO3 ABG O2 Saturation ABG Base Excess ABG Hemoglobin ABG Oxyhemoglobin ABG Potassium ABG Glucose Oxyhemoglobin Carboxyhemoglobin Sodium Potassium Chloride Carbon Dioxide BUN Creatinine Glucose POC Glucose 125 H 127 H Calcium Ferritin Total Bilirubin Alkaline Phosphatase Lactate Dehydrogenase Total Creatine Kinase CK-MB (CK-2) Rel Index Troponin T C-Reactive Protein Total Protein Albumin Prealbumin LDL Cholesterol Direct HDL Cholesterol Arterial Blood Glucose Arterial Blood Ionized Calcium Urine WBC (Auto) 03/21/20 03/21/20 03/21/20 07:35 11:45 17:22 WBC RBC Hgb Hct MCV MCH RDW Plt Count Lymph % (Auto) [place] % (Auto) Eos % (Auto) Lymph # (Auto) [place] # (Auto) Eos # (Auto) Seg Neutrophils % Seg Neuts % (Manual) Lymphocytes % (Manual) Monocytes % (Manual) Basophils % (Manual) Seg Neutrophils # Seg Neutrophils # Man Lymphocytes # (Manual) Monocytes # (Manual) Eosinophils # (Manual) Basophils # (Manual) PT INR D-Dimer ABG pH POC ABG pCO2 POC ABG pO2 ABG pO2 ABG HCO3 ABG O2 Saturation ABG Base Excess ABG Hemoglobin ABG Oxyhemoglobin ABG Potassium ABG Glucose Oxyhemoglobin Carboxyhemoglobin Sodium 136 L Potassium Chloride 97.7 L Carbon Dioxide 32 H BUN Creatinine < 0.2 L Glucose 103 H POC Glucose 126 H 120 H Calcium Ferritin Total Bilirubin Alkaline Phosphatase Lactate Dehydrogenase Total Creatine Kinase CK-MB (CK-2) Rel Index Troponin T C-Reactive Protein Total Protein Albumin Prealbumin LDL Cholesterol Direct HDL Cholesterol Arterial Blood Glucose Arterial Blood Ionized Calcium Urine WBC (Auto) 03/22/20 03/22/20 03/22/20 05:09 06:34 06:34 WBC 17.5 H RBC 3.52 L Hgb 10.0 L Hct 30.7 L MCV MCH RDW 17.5 H Plt Count 499 H Lymph % (Auto) [place] % (Auto) Eos % (Auto) Lymph # (Auto) [place] # (Auto) Eos # (Auto) Seg Neutrophils % Seg Neuts % (Manual) 80.0 H Lymphocytes % (Manual) 10.0 L Monocytes % (Manual) Basophils % (Manual) Seg Neutrophils # Seg Neutrophils # Man 14.0 H Lymphocytes # (Manual) Monocytes # (Manual) Eosinophils # (Manual) Basophils # (Manual) PT INR D-Dimer ABG pH POC ABG pCO2 POC ABG pO2 ABG pO2 ABG HCO3 ABG O2 Saturation ABG Base Excess ABG Hemoglobin ABG Oxyhemoglobin ABG Potassium ABG Glucose Oxyhemoglobin Carboxyhemoglobin Sodium Potassium Chloride 96.6 L Carbon Dioxide 38 H BUN Creatinine < 0.2 L Glucose 139 H POC Glucose 125 H Calcium Ferritin Total Bilirubin Alkaline Phosphatase Lactate Dehydrogenase Total Creatine Kinase CK-MB (CK-2) Rel Index Troponin T C-Reactive Protein Total Protein Albumin Prealbumin LDL Cholesterol Direct HDL Cholesterol Arterial Blood Glucose Arterial Blood Ionized Calcium Urine WBC (Auto) 03/22/20 03/22/20 03/22/20 11:45 18:00 23:32 WBC RBC Hgb Hct MCV MCH RDW Plt Count Lymph % (Auto) [place] % (Auto) Eos % (Auto) Lymph # (Auto) [place] # (Auto) Eos # (Auto) Seg Neutrophils % Seg Neuts % (Manual) Lymphocytes % (Manual) Monocytes % (Manual) Basophils % (Manual) Seg Neutrophils # Seg Neutrophils # Man Lymphocytes # (Manual) Monocytes # (Manual) Eosinophils # (Manual) Basophils # (Manual) PT INR D-Dimer ABG pH POC ABG pCO2 POC ABG pO2 ABG pO2 ABG HCO3 ABG O2 Saturation ABG Base Excess ABG Hemoglobin ABG Oxyhemoglobin ABG Potassium ABG Glucose Oxyhemoglobin Carboxyhemoglobin Sodium Potassium Chloride Carbon Dioxide BUN Creatinine Glucose POC Glucose 135 H 133 H Calcium Ferritin Total Bilirubin Alkaline Phosphatase Lactate Dehydrogenase Total Creatine Kinase CK-MB (CK-2) Rel Index Troponin T 0.113 H* C-Reactive Protein Total Protein Albumin Prealbumin LDL Cholesterol Direct HDL Cholesterol Arterial Blood Glucose Arterial Blood Ionized Calcium Urine WBC (Auto) 03/23/20 03/23/20 03/23/20 01:47 06:21 07:57 WBC RBC Hgb Hct MCV MCH RDW Plt Count Lymph % (Auto) [place] % (Auto) Eos % (Auto) Lymph # (Auto) [place] # (Auto) Eos # (Auto) Seg Neutrophils % Seg Neuts % (Manual) Lymphocytes % (Manual) Monocytes % (Manual) Basophils % (Manual) Seg Neutrophils # Seg Neutrophils # Man Lymphocytes # (Manual) Monocytes # (Manual) Eosinophils # (Manual) Basophils # (Manual) PT INR D-Dimer ABG pH POC ABG pCO2 POC ABG pO2 ABG pO2 ABG HCO3 ABG O2 Saturation ABG Base Excess ABG Hemoglobin ABG Oxyhemoglobin ABG Potassium ABG Glucose Oxyhemoglobin Carboxyhemoglobin Sodium Potassium Chloride Carbon Dioxide BUN Creatinine Glucose POC Glucose 130 H Calcium Ferritin Total Bilirubin Alkaline Phosphatase Lactate Dehydrogenase Total Creatine Kinase CK-MB (CK-2) Rel Index Troponin T 0.143 H* D 0.105 H* D C-Reactive Protein Total Protein Albumin Prealbumin LDL Cholesterol Direct HDL Cholesterol Arterial Blood Glucose Arterial Blood Ionized Calcium Urine WBC (Auto) 03/23/20 03/24/20 03/24/20 12:02 05:33 07:15 WBC 18.0 H RBC Hgb 11.0 L Hct 34.0 L MCV MCH RDW 17.4 H Plt Count 520 H Lymph % (Auto) [place] % (Auto) Eos % (Auto) Lymph # (Auto) [place] # (Auto) Eos # (Auto) Seg Neutrophils % Seg Neuts % (Manual) 88.0 H Lymphocytes % (Manual) 7.0 L Monocytes % (Manual) Basophils % (Manual) Seg Neutrophils # Seg Neutrophils # Man 15.8 H Lymphocytes # (Manual) Monocytes # (Manual) Eosinophils # (Manual) Basophils # (Manual) PT INR D-Dimer ABG pH POC ABG pCO2 POC ABG pO2 ABG pO2 ABG HCO3 ABG O2 Saturation ABG Base Excess ABG Hemoglobin ABG Oxyhemoglobin ABG Potassium ABG Glucose Oxyhemoglobin Carboxyhemoglobin Sodium Potassium Chloride Carbon Dioxide BUN Creatinine Glucose POC Glucose 137 H 112 H Calcium Ferritin Total Bilirubin Alkaline Phosphatase Lactate Dehydrogenase Total Creatine Kinase CK-MB (CK-2) Rel Index Troponin T C-Reactive Protein Total Protein Albumin Prealbumin LDL Cholesterol Direct HDL Cholesterol Arterial Blood Glucose Arterial Blood Ionized Calcium Urine WBC (Auto) 03/24/20 03/24/20 03/24/20 07:15 11:22 23:30 WBC RBC Hgb Hct MCV MCH RDW Plt Count Lymph % (Auto) [place] % (Auto) Eos % (Auto) Lymph # (Auto) [place] # (Auto) Eos # (Auto) Seg Neutrophils % Seg Neuts % (Manual) Lymphocytes % (Manual) Monocytes % (Manual) Basophils % (Manual) Seg Neutrophils # Seg Neutrophils # Man Lymphocytes # (Manual) Monocytes # (Manual) Eosinophils # (Manual) Basophils # (Manual) PT INR D-Dimer ABG pH POC ABG pCO2 POC ABG pO2 ABG pO2 ABG HCO3 ABG O2 Saturation ABG Base Excess ABG Hemoglobin ABG Oxyhemoglobin ABG Potassium ABG Glucose Oxyhemoglobin Carboxyhemoglobin Sodium Potassium Chloride 96.6 L Carbon Dioxide 38 H BUN Creatinine < 0.2 L Glucose 141 H POC Glucose 130 H 120 H Calcium Ferritin Total Bilirubin Alkaline Phosphatase Lactate Dehydrogenase Total Creatine Kinase CK-MB (CK-2) Rel Index Troponin T C-Reactive Protein Total Protein Albumin Prealbumin LDL Cholesterol Direct HDL Cholesterol Arterial Blood Glucose Arterial Blood Ionized Calcium Urine WBC (Auto) 03/25/20 03/25/20 03/25/20 05:48 17:53 23:18 WBC RBC Hgb Hct MCV MCH RDW Plt Count Lymph % (Auto) [place] % (Auto) Eos % (Auto) Lymph # (Auto) [place] # (Auto) Eos # (Auto) Seg Neutrophils % Seg Neuts % (Manual) Lymphocytes % (Manual) Monocytes % (Manual) Basophils % (Manual) Seg Neutrophils # Seg Neutrophils # Man Lymphocytes # (Manual) Monocytes # (Manual) Eosinophils # (Manual) Basophils # (Manual) PT INR D-Dimer ABG pH POC ABG pCO2 POC ABG pO2 ABG pO2 ABG HCO3 ABG O2 Saturation ABG Base Excess ABG Hemoglobin ABG Oxyhemoglobin ABG Potassium ABG Glucose Oxyhemoglobin Carboxyhemoglobin Sodium Potassium Chloride Carbon Dioxide BUN Creatinine Glucose POC Glucose 124 H 109 H 131 H Calcium Ferritin Total Bilirubin Alkaline Phosphatase Lactate Dehydrogenase Total Creatine Kinase CK-MB (CK-2) Rel Index Troponin T C-Reactive Protein Total Protein Albumin Prealbumin LDL Cholesterol Direct HDL Cholesterol Arterial Blood Glucose Arterial Blood Ionized Calcium Urine WBC (Auto) 03/26/20 03/26/20 03/26/20 05:21 08:49 08:49 WBC 19.7 H RBC Hgb 10.7 L Hct 33.5 L MCV MCH 27 L RDW 17.1 H Plt Count 480 H Lymph % (Auto) 5.7 L [place] % (Auto) Eos % (Auto) Lymph # (Auto) 1.1 L [place] # (Auto) 1.2 H Eos # (Auto) Seg Neutrophils % 87.7 H Seg Neuts % (Manual) Lymphocytes % (Manual) Monocytes % (Manual) Basophils % (Manual) Seg Neutrophils # 17.2 H Seg Neutrophils # Man Lymphocytes # (Manual) Monocytes # (Manual) Eosinophils # (Manual) Basophils # (Manual) PT INR D-Dimer ABG pH POC ABG pCO2 POC ABG pO2 ABG pO2 ABG HCO3 ABG O2 Saturation ABG Base Excess ABG Hemoglobin ABG Oxyhemoglobin ABG Potassium ABG Glucose Oxyhemoglobin Carboxyhemoglobin Sodium Potassium Chloride 97.2 L Carbon Dioxide 36 H BUN Creatinine < 0.2 L Glucose 127 H POC Glucose 116 H Calcium Ferritin Total Bilirubin Alkaline Phosphatase Lactate Dehydrogenase Total Creatine Kinase CK-MB (CK-2) Rel Index Troponin T C-Reactive Protein Total Protein Albumin Prealbumin LDL Cholesterol Direct HDL Cholesterol Arterial Blood Glucose Arterial Blood Ionized Calcium Urine WBC (Auto) 03/26/20 03/26/20 03/26/20 11:38 18:44 23:06 WBC RBC Hgb Hct MCV MCH RDW Plt Count Lymph % (Auto) [place] % (Auto) Eos % (Auto) Lymph # (Auto) [place] # (Auto) Eos # (Auto) Seg Neutrophils % Seg Neuts % (Manual) Lymphocytes % (Manual) Monocytes % (Manual) Basophils % (Manual) Seg Neutrophils # Seg Neutrophils # Man Lymphocytes # (Manual) Monocytes # (Manual) Eosinophils # (Manual) Basophils # (Manual) PT INR D-Dimer ABG pH POC ABG pCO2 POC ABG pO2 ABG pO2 ABG HCO3 ABG O2 Saturation ABG Base Excess ABG Hemoglobin ABG Oxyhemoglobin ABG Potassium ABG Glucose Oxyhemoglobin Carboxyhemoglobin Sodium Potassium Chloride Carbon Dioxide BUN Creatinine Glucose POC Glucose 120 H 111 H 134 H Calcium Ferritin Total Bilirubin Alkaline Phosphatase Lactate Dehydrogenase Total Creatine Kinase CK-MB (CK-2) Rel Index Troponin T C-Reactive Protein Total Protein Albumin Prealbumin LDL Cholesterol Direct HDL Cholesterol Arterial Blood Glucose Arterial Blood Ionized Calcium Urine WBC (Auto) 03/27/20 03/27/20 03/27/20 05:41 05:59 05:59 WBC 18.6 H RBC Hgb 10.1 L Hct 31.4 L MCV MCH RDW 17.2 H Plt Count Lymph % (Auto) 8.0 L [place] % (Auto) Eos % (Auto) Lymph # (Auto) [place] # (Auto) 1.2 H Eos # (Auto) Seg Neutrophils % 84.7 H Seg Neuts % (Manual) Lymphocytes % (Manual) Monocytes % (Manual) Basophils % (Manual) Seg Neutrophils # 15.8 H Seg Neutrophils # Man Lymphocytes # (Manual) Monocytes # (Manual) Eosinophils # (Manual) Basophils # (Manual) PT INR D-Dimer ABG pH POC ABG pCO2 POC ABG pO2 ABG pO2 ABG HCO3 ABG O2 Saturation ABG Base Excess ABG Hemoglobin ABG Oxyhemoglobin ABG Potassium ABG Glucose Oxyhemoglobin Carboxyhemoglobin Sodium Potassium Chloride Carbon Dioxide 34 H BUN Creatinine < 0.2 L Glucose 127 H POC Glucose 129 H Calcium Ferritin Total Bilirubin Alkaline Phosphatase Lactate Dehydrogenase Total Creatine Kinase CK-MB (CK-2) Rel Index Troponin T C-Reactive Protein Total Protein Albumin Prealbumin LDL Cholesterol Direct HDL Cholesterol Arterial Blood Glucose Arterial Blood Ionized Calcium Urine WBC (Auto) 03/27/20 03/27/20 03/28/20 17:28 23:22 05:23 WBC RBC Hgb Hct MCV MCH RDW Plt Count Lymph % (Auto) [place] % (Auto) Eos % (Auto) Lymph # (Auto) [place] # (Auto) Eos # (Auto) Seg Neutrophils % Seg Neuts % (Manual) Lymphocytes % (Manual) Monocytes % (Manual) Basophils % (Manual) Seg Neutrophils # Seg Neutrophils # Man Lymphocytes # (Manual) Monocytes # (Manual) Eosinophils # (Manual) Basophils # (Manual) PT INR D-Dimer ABG pH POC ABG pCO2 POC ABG pO2 ABG pO2 ABG HCO3 ABG O2 Saturation ABG Base Excess ABG Hemoglobin ABG Oxyhemoglobin ABG Potassium ABG Glucose Oxyhemoglobin Carboxyhemoglobin Sodium Potassium Chloride Carbon Dioxide BUN Creatinine Glucose POC Glucose 108 H 119 H 129 H Calcium Ferritin Total Bilirubin Alkaline Phosphatase Lactate Dehydrogenase Total Creatine Kinase CK-MB (CK-2) Rel Index Troponin T C-Reactive Protein Total Protein Albumin Prealbumin LDL Cholesterol Direct HDL Cholesterol Arterial Blood Glucose Arterial Blood Ionized Calcium Urine WBC (Auto) 03/28/20 03/28/20 03/28/20 10:28 10:28 11:36 WBC 23.6 H RBC 3.62 L Hgb 10.0 L Hct 30.8 L MCV MCH RDW 16.4 H Plt Count Lymph % (Auto) [place] % (Auto) Eos % (Auto) Lymph # (Auto) [place] # (Auto) Eos # (Auto) Seg Neutrophils % Seg Neuts % (Manual) 89.0 H Lymphocytes % (Manual) 5.0 L Monocytes % (Manual) Basophils % (Manual) Seg Neutrophils # Seg Neutrophils # Man 21.0 H Lymphocytes # (Manual) Monocytes # (Manual) 1.2 H Eosinophils # (Manual) Basophils # (Manual) 0.2 H PT INR D-Dimer ABG pH POC ABG pCO2 POC ABG pO2 ABG pO2 ABG HCO3 ABG O2 Saturation ABG Base Excess ABG Hemoglobin ABG Oxyhemoglobin ABG Potassium ABG Glucose Oxyhemoglobin Carboxyhemoglobin Sodium 134 L Potassium Chloride 94.2 L Carbon Dioxide 35 H BUN Creatinine < 0.2 L Glucose 134 H POC Glucose Calcium Ferritin Total Bilirubin Alkaline Phosphatase Lactate Dehydrogenase Total Creatine Kinase CK-MB (CK-2) Rel Index Troponin T C-Reactive Protein Total Protein Albumin Prealbumin LDL Cholesterol Direct HDL Cholesterol Arterial Blood Glucose Arterial Blood Ionized Calcium Urine WBC (Auto) 39.0 H 03/28/20 03/28/20 03/28/20 11:51 17:08 17:17 WBC RBC Hgb Hct MCV MCH RDW Plt Count Lymph % (Auto) [place] % (Auto) Eos % (Auto) Lymph # (Auto) [place] # (Auto) Eos # (Auto) Seg Neutrophils % Seg Neuts % (Manual) Lymphocytes % (Manual) Monocytes % (Manual) Basophils % (Manual) Seg Neutrophils # Seg Neutrophils # Man Lymphocytes # (Manual) Monocytes # (Manual) Eosinophils # (Manual) Basophils # (Manual) PT INR D-Dimer ABG pH POC ABG pCO2 POC ABG pO2 ABG pO2 ABG HCO3 ABG O2 Saturation ABG Base Excess ABG Hemoglobin ABG Oxyhemoglobin ABG Potassium ABG Glucose Oxyhemoglobin Carboxyhemoglobin Sodium Potassium Chloride Carbon Dioxide BUN Creatinine Glucose POC Glucose 123 H 112 H Calcium Ferritin Total Bilirubin Alkaline Phosphatase Lactate Dehydrogenase Total Creatine Kinase 47 L CK-MB (CK-2) Rel Index 4.6 H Troponin T 0.090 H C-Reactive Protein Total Protein Albumin Prealbumin LDL Cholesterol Direct HDL Cholesterol Arterial Blood Glucose Arterial Blood Ionized Calcium Urine WBC (Auto) 03/28/20 03/29/20 03/29/20 23:22 05:22 10:58 WBC RBC Hgb Hct MCV MCH RDW Plt Count Lymph % (Auto) [place] % (Auto) Eos % (Auto) Lymph # (Auto) [place] # (Auto) Eos # (Auto) Seg Neutrophils % Seg Neuts % (Manual) Lymphocytes % (Manual) Monocytes % (Manual) Basophils % (Manual) Seg Neutrophils # Seg Neutrophils # Man Lymphocytes # (Manual) Monocytes # (Manual) Eosinophils # (Manual) Basophils # (Manual) PT INR D-Dimer ABG pH POC ABG pCO2 POC ABG pO2 ABG pO2 ABG HCO3 ABG O2 Saturation ABG Base Excess ABG Hemoglobin ABG Oxyhemoglobin ABG Potassium ABG Glucose Oxyhemoglobin Carboxyhemoglobin Sodium Potassium Chloride Carbon Dioxide BUN Creatinine Glucose POC Glucose 122 H 116 H 133 H Calcium Ferritin Total Bilirubin Alkaline Phosphatase Lactate Dehydrogenase Total Creatine Kinase CK-MB (CK-2) Rel Index Troponin T C-Reactive Protein Total Protein Albumin Prealbumin LDL Cholesterol Direct HDL Cholesterol Arterial Blood Glucose Arterial Blood Ionized Calcium Urine WBC (Auto) 03/29/20 03/29/20 03/30/20 17:18 23:14 04:57 WBC RBC Hgb Hct MCV MCH RDW Plt Count Lymph % (Auto) [place] % (Auto) Eos % (Auto) Lymph # (Auto) [place] # (Auto) Eos # (Auto) Seg Neutrophils % Seg Neuts % (Manual) Lymphocytes % (Manual) Monocytes % (Manual) Basophils % (Manual) Seg Neutrophils # Seg Neutrophils # Man Lymphocytes # (Manual) Monocytes # (Manual) Eosinophils # (Manual) Basophils # (Manual) PT INR D-Dimer ABG pH POC ABG pCO2 POC ABG pO2 ABG pO2 ABG HCO3 ABG O2 Saturation ABG Base Excess ABG Hemoglobin ABG Oxyhemoglobin ABG Potassium ABG Glucose Oxyhemoglobin Carboxyhemoglobin Sodium Potassium Chloride Carbon Dioxide BUN Creatinine Glucose POC Glucose 111 H 114 H 130 H Calcium Ferritin Total Bilirubin Alkaline Phosphatase Lactate Dehydrogenase Total Creatine Kinase CK-MB (CK-2) Rel Index Troponin T C-Reactive Protein Total Protein Albumin Prealbumin LDL Cholesterol Direct HDL Cholesterol Arterial Blood Glucose Arterial Blood Ionized Calcium Urine WBC (Auto) 03/30/20 03/30/20 03/30/20 11:38 14:47 14:47 WBC 19.9 H RBC Hgb 10.9 L Hct 34.4 L MCV MCH 27 L RDW 16.5 H Plt Count 441 H Lymph % (Auto) 6.4 L [place] % (Auto) Eos % (Auto) Lymph # (Auto) [place] # (Auto) 1.4 H Eos # (Auto) Seg Neutrophils % 86.1 H Seg Neuts % (Manual) Lymphocytes % (Manual) Monocytes % (Manual) Basophils % (Manual) Seg Neutrophils # 17.1 H Seg Neutrophils # Man Lymphocytes # (Manual) Monocytes # (Manual) Eosinophils # (Manual) Basophils # (Manual) PT INR D-Dimer ABG pH POC ABG pCO2 POC ABG pO2 ABG pO2 ABG HCO3 ABG O2 Saturation ABG Base Excess ABG Hemoglobin ABG Oxyhemoglobin ABG Potassium ABG Glucose Oxyhemoglobin Carboxyhemoglobin Sodium 133 L Potassium Chloride 94.6 L Carbon Dioxide 33 H BUN Creatinine < 0.2 L Glucose 194 H POC Glucose 139 H Calcium Ferritin Total Bilirubin Alkaline Phosphatase Lactate Dehydrogenase Total Creatine Kinase CK-MB (CK-2) Rel Index Troponin T C-Reactive Protein Total Protein Albumin 2.8 L Prealbumin LDL Cholesterol Direct HDL Cholesterol Arterial Blood Glucose Arterial Blood Ionized Calcium Urine WBC (Auto) 03/30/20 03/31/20 03/31/20 17:07 05:02 15:21 WBC RBC Hgb Hct MCV MCH RDW Plt Count Lymph % (Auto) [place] % (Auto) Eos % (Auto) Lymph # (Auto) [place] # (Auto) Eos # (Auto) Seg Neutrophils % Seg Neuts % (Manual) Lymphocytes % (Manual) Monocytes % (Manual) Basophils % (Manual) Seg Neutrophils # Seg Neutrophils # Man Lymphocytes # (Manual) Monocytes # (Manual) Eosinophils # (Manual) Basophils # (Manual) PT INR D-Dimer ABG pH POC ABG pCO2 POC ABG pO2 ABG pO2 ABG HCO3 ABG O2 Saturation ABG Base Excess ABG Hemoglobin ABG Oxyhemoglobin ABG Potassium ABG Glucose Oxyhemoglobin Carboxyhemoglobin Sodium Potassium Chloride Carbon Dioxide BUN Creatinine Glucose POC Glucose 163 H 108 H 110 H Calcium Ferritin Total Bilirubin Alkaline Phosphatase Lactate Dehydrogenase Total Creatine Kinase CK-MB (CK-2) Rel Index Troponin T C-Reactive Protein Total Protein Albumin Prealbumin LDL Cholesterol Direct HDL Cholesterol Arterial Blood Glucose Arterial Blood Ionized Calcium Urine WBC (Auto) 03/31/20 03/31/20 04/01/20 17:58 23:19 05:09 WBC RBC Hgb Hct MCV MCH RDW Plt Count Lymph % (Auto) [place] % (Auto) Eos % (Auto) Lymph # (Auto) [place] # (Auto) Eos # (Auto) Seg Neutrophils % Seg Neuts % (Manual) Lymphocytes % (Manual) Monocytes % (Manual) Basophils % (Manual) Seg Neutrophils # Seg Neutrophils # Man Lymphocytes # (Manual) Monocytes # (Manual) Eosinophils # (Manual) Basophils # (Manual) PT INR D-Dimer ABG pH POC ABG pCO2 POC ABG pO2 ABG pO2 ABG HCO3 ABG O2 Saturation ABG Base Excess ABG Hemoglobin ABG Oxyhemoglobin ABG Potassium ABG Glucose Oxyhemoglobin Carboxyhemoglobin Sodium Potassium Chloride Carbon Dioxide BUN Creatinine Glucose POC Glucose 110 H 131 H 124 H Calcium Ferritin Total Bilirubin Alkaline Phosphatase Lactate Dehydrogenase Total Creatine Kinase CK-MB (CK-2) Rel Index Troponin T C-Reactive Protein Total Protein Albumin Prealbumin LDL Cholesterol Direct HDL Cholesterol Arterial Blood Glucose Arterial Blood Ionized Calcium Urine WBC (Auto) 04/01/20 04/01/20 04/01/20 11:50 17:01 23:21 WBC RBC Hgb Hct MCV MCH RDW Plt Count Lymph % (Auto) [place] % (Auto) Eos % (Auto) Lymph # (Auto) [place] # (Auto) Eos # (Auto) Seg Neutrophils % Seg Neuts % (Manual) Lymphocytes % (Manual) Monocytes % (Manual) Basophils % (Manual) Seg Neutrophils # Seg Neutrophils # Man Lymphocytes # (Manual) Monocytes # (Manual) Eosinophils # (Manual) Basophils # (Manual) PT INR D-Dimer ABG pH POC ABG pCO2 POC ABG pO2 ABG pO2 ABG HCO3 ABG O2 Saturation ABG Base Excess ABG Hemoglobin ABG Oxyhemoglobin ABG Potassium ABG Glucose Oxyhemoglobin Carboxyhemoglobin Sodium Potassium Chloride Carbon Dioxide BUN Creatinine Glucose POC Glucose 136 H 115 H 124 H Calcium Ferritin Total Bilirubin Alkaline Phosphatase Lactate Dehydrogenase Total Creatine Kinase CK-MB (CK-2) Rel Index Troponin T C-Reactive Protein Total Protein Albumin Prealbumin LDL Cholesterol Direct HDL Cholesterol Arterial Blood Glucose Arterial Blood Ionized Calcium Urine WBC (Auto) 04/02/20 04/02/20 04/02/20 05:27 11:58 17:58 WBC RBC Hgb Hct MCV MCH RDW Plt Count Lymph % (Auto) [place] % (Auto) Eos % (Auto) Lymph # (Auto) [place] # (Auto) Eos # (Auto) Seg Neutrophils % Seg Neuts % (Manual) Lymphocytes % (Manual) Monocytes % (Manual) Basophils % (Manual) Seg Neutrophils # Seg Neutrophils # Man Lymphocytes # (Manual) Monocytes # (Manual) Eosinophils # (Manual) Basophils # (Manual) PT INR D-Dimer ABG pH POC ABG pCO2 POC ABG pO2 ABG pO2 ABG HCO3 ABG O2 Saturation ABG Base Excess ABG Hemoglobin ABG Oxyhemoglobin ABG Potassium ABG Glucose Oxyhemoglobin Carboxyhemoglobin Sodium Potassium Chloride Carbon Dioxide BUN Creatinine Glucose POC Glucose 117 H 133 H 122 H Calcium Ferritin Total Bilirubin Alkaline Phosphatase Lactate Dehydrogenase Total Creatine Kinase CK-MB (CK-2) Rel Index Troponin T C-Reactive Protein Total Protein Albumin Prealbumin LDL Cholesterol Direct HDL Cholesterol Arterial Blood Glucose Arterial Blood Ionized Calcium Urine WBC (Auto) 04/02/20 04/03/20 04/03/20 23:12 05:11 11:11 WBC RBC Hgb Hct MCV MCH RDW Plt Count Lymph % (Auto) [place] % (Auto) Eos % (Auto) Lymph # (Auto) [place] # (Auto) Eos # (Auto) Seg Neutrophils % Seg Neuts % (Manual) Lymphocytes % (Manual) Monocytes % (Manual) Basophils % (Manual) Seg Neutrophils # Seg Neutrophils # Man Lymphocytes # (Manual) Monocytes # (Manual) Eosinophils # (Manual) Basophils # (Manual) PT INR D-Dimer ABG pH POC ABG pCO2 POC ABG pO2 ABG pO2 ABG HCO3 ABG O2 Saturation ABG Base Excess ABG Hemoglobin ABG Oxyhemoglobin ABG Potassium ABG Glucose Oxyhemoglobin Carboxyhemoglobin Sodium Potassium Chloride Carbon Dioxide BUN Creatinine Glucose POC Glucose 130 H 139 H 136 H Calcium Ferritin Total Bilirubin Alkaline Phosphatase Lactate Dehydrogenase Total Creatine Kinase CK-MB (CK-2) Rel Index Troponin T C-Reactive Protein Total Protein Albumin Prealbumin LDL Cholesterol Direct HDL Cholesterol Arterial Blood Glucose Arterial Blood Ionized Calcium Urine WBC (Auto) 04/03/20 04/03/20 04/04/20 16:51 23:25 05:29 WBC RBC Hgb Hct MCV MCH RDW Plt Count Lymph % (Auto) [place] % (Auto) Eos % (Auto) Lymph # (Auto) [place] # (Auto) Eos # (Auto) Seg Neutrophils % Seg Neuts % (Manual) Lymphocytes % (Manual) Monocytes % (Manual) Basophils % (Manual) Seg Neutrophils # Seg Neutrophils # Man Lymphocytes # (Manual) Monocytes # (Manual) Eosinophils # (Manual) Basophils # (Manual) PT INR D-Dimer ABG pH POC ABG pCO2 POC ABG pO2 ABG pO2 ABG HCO3 ABG O2 Saturation ABG Base Excess ABG Hemoglobin ABG Oxyhemoglobin ABG Potassium ABG Glucose Oxyhemoglobin Carboxyhemoglobin Sodium Potassium Chloride Carbon Dioxide BUN Creatinine Glucose POC Glucose 118 H 111 H 126 H Calcium Ferritin Total Bilirubin Alkaline Phosphatase Lactate Dehydrogenase Total Creatine Kinase CK-MB (CK-2) Rel Index Troponin T C-Reactive Protein Total Protein Albumin Prealbumin LDL Cholesterol Direct HDL Cholesterol Arterial Blood Glucose Arterial Blood Ionized Calcium Urine WBC (Auto) 04/04/20 04/04/20 04/04/20 11:47 17:41 23:05 WBC RBC Hgb Hct MCV MCH RDW Plt Count Lymph % (Auto) [place] % (Auto) Eos % (Auto) Lymph # (Auto) [place] # (Auto) Eos # (Auto) Seg Neutrophils % Seg Neuts % (Manual) Lymphocytes % (Manual) Monocytes % (Manual) Basophils % (Manual) Seg Neutrophils # Seg Neutrophils # Man Lymphocytes # (Manual) Monocytes # (Manual) Eosinophils # (Manual) Basophils # (Manual) PT INR D-Dimer ABG pH POC ABG pCO2 POC ABG pO2 ABG pO2 ABG HCO3 ABG O2 Saturation ABG Base Excess ABG Hemoglobin ABG Oxyhemoglobin ABG Potassium ABG Glucose Oxyhemoglobin Carboxyhemoglobin Sodium Potassium Chloride Carbon Dioxide BUN Creatinine Glucose POC Glucose 123 H 120 H 119 H Calcium Ferritin Total Bilirubin Alkaline Phosphatase Lactate Dehydrogenase Total Creatine Kinase CK-MB (CK-2) Rel Index Troponin T C-Reactive Protein Total Protein Albumin Prealbumin LDL Cholesterol Direct HDL Cholesterol Arterial Blood Glucose Arterial Blood Ionized Calcium Urine WBC (Auto) 04/05/20 04/05/20 04/05/20 05:14 12:16 18:48 WBC RBC Hgb Hct MCV MCH RDW Plt Count Lymph % (Auto) [place] % (Auto) Eos % (Auto) Lymph # (Auto) [place] # (Auto) Eos # (Auto) Seg Neutrophils % Seg Neuts % (Manual) Lymphocytes % (Manual) Monocytes % (Manual) Basophils % (Manual) Seg Neutrophils # Seg Neutrophils # Man Lymphocytes # (Manual) Monocytes # (Manual) Eosinophils # (Manual) Basophils # (Manual) PT INR D-Dimer ABG pH POC ABG pCO2 POC ABG pO2 ABG pO2 ABG HCO3 ABG O2 Saturation ABG Base Excess ABG Hemoglobin ABG Oxyhemoglobin ABG Potassium ABG Glucose Oxyhemoglobin Carboxyhemoglobin Sodium Potassium Chloride Carbon Dioxide BUN Creatinine Glucose POC Glucose 123 H 148 H 106 H Calcium Ferritin Total Bilirubin Alkaline Phosphatase Lactate Dehydrogenase Total Creatine Kinase CK-MB (CK-2) Rel Index Troponin T C-Reactive Protein Total Protein Albumin Prealbumin LDL Cholesterol Direct HDL Cholesterol Arterial Blood Glucose Arterial Blood Ionized Calcium Urine WBC (Auto) 04/06/20 04/06/20 04/06/20 00:47 03:26 08:24 WBC RBC Hgb Hct MCV MCH RDW Plt Count Lymph % (Auto) [place] % (Auto) Eos % (Auto) Lymph # (Auto) [place] # (Auto) Eos # (Auto) Seg Neutrophils % Seg Neuts % (Manual) Lymphocytes % (Manual) Monocytes % (Manual) Basophils % (Manual) Seg Neutrophils # Seg Neutrophils # Man Lymphocytes # (Manual) Monocytes # (Manual) Eosinophils # (Manual) Basophils # (Manual) PT INR D-Dimer ABG pH POC ABG pCO2 POC ABG pO2 ABG pO2 ABG HCO3 ABG O2 Saturation ABG Base Excess ABG Hemoglobin ABG Oxyhemoglobin ABG Potassium ABG Glucose Oxyhemoglobin Carboxyhemoglobin Sodium Potassium Chloride Carbon Dioxide BUN Creatinine Glucose POC Glucose 129 H 134 H 131 H Calcium Ferritin Total Bilirubin Alkaline Phosphatase Lactate Dehydrogenase Total Creatine Kinase CK-MB (CK-2) Rel Index Troponin T C-Reactive Protein Total Protein Albumin Prealbumin LDL Cholesterol Direct HDL Cholesterol Arterial Blood Glucose Arterial Blood Ionized Calcium Urine WBC (Auto) 04/06/20 04/06/20 04/06/20 11:16 16:27 23:01 WBC RBC Hgb Hct MCV MCH RDW Plt Count Lymph % (Auto) [place] % (Auto) Eos % (Auto) Lymph # (Auto) [place] # (Auto) Eos # (Auto) Seg Neutrophils % Seg Neuts % (Manual) Lymphocytes % (Manual) Monocytes % (Manual) Basophils % (Manual) Seg Neutrophils # Seg Neutrophils # Man Lymphocytes # (Manual) Monocytes # (Manual) Eosinophils # (Manual) Basophils # (Manual) PT INR D-Dimer ABG pH POC ABG pCO2 POC ABG pO2 ABG pO2 ABG HCO3 ABG O2 Saturation ABG Base Excess ABG Hemoglobin ABG Oxyhemoglobin ABG Potassium ABG Glucose Oxyhemoglobin Carboxyhemoglobin Sodium Potassium Chloride Carbon Dioxide BUN Creatinine Glucose POC Glucose 131 H 107 H 125 H Calcium Ferritin Total Bilirubin Alkaline Phosphatase Lactate Dehydrogenase Total Creatine Kinase CK-MB (CK-2) Rel Index Troponin T C-Reactive Protein Total Protein Albumin Prealbumin LDL Cholesterol Direct HDL Cholesterol Arterial Blood Glucose Arterial Blood Ionized Calcium Urine WBC (Auto) 04/07/20 04/07/20 04/07/20 05:24 12:41 17:40 WBC RBC Hgb Hct MCV MCH RDW Plt Count Lymph % (Auto) [place] % (Auto) Eos % (Auto) Lymph # (Auto) [place] # (Auto) Eos # (Auto) Seg Neutrophils % Seg Neuts % (Manual) Lymphocytes % (Manual) Monocytes % (Manual) Basophils % (Manual) Seg Neutrophils # Seg Neutrophils # Man Lymphocytes # (Manual) Monocytes # (Manual) Eosinophils # (Manual) Basophils # (Manual) PT INR D-Dimer ABG pH POC ABG pCO2 POC ABG pO2 ABG pO2 ABG HCO3 ABG O2 Saturation ABG Base Excess ABG Hemoglobin ABG Oxyhemoglobin ABG Potassium ABG Glucose Oxyhemoglobin Carboxyhemoglobin Sodium Potassium Chloride Carbon Dioxide BUN Creatinine Glucose POC Glucose 125 H 145 H 123 H Calcium Ferritin Total Bilirubin Alkaline Phosphatase Lactate Dehydrogenase Total Creatine Kinase CK-MB (CK-2) Rel Index Troponin T C-Reactive Protein Total Protein Albumin Prealbumin LDL Cholesterol Direct HDL Cholesterol Arterial Blood Glucose Arterial Blood Ionized Calcium Urine WBC (Auto) 04/07/20 04/08/20 04/08/20 23:22 05:40 11:29 WBC RBC Hgb Hct MCV MCH RDW Plt Count Lymph % (Auto) [place] % (Auto) Eos % (Auto) Lymph # (Auto) [place] # (Auto) Eos # (Auto) Seg Neutrophils % Seg Neuts % (Manual) Lymphocytes % (Manual) Monocytes % (Manual) Basophils % (Manual) Seg Neutrophils # Seg Neutrophils # Man Lymphocytes # (Manual) Monocytes # (Manual) Eosinophils # (Manual) Basophils # (Manual) PT INR D-Dimer ABG pH POC ABG pCO2 POC ABG pO2 ABG pO2 ABG HCO3 ABG O2 Saturation ABG Base Excess ABG Hemoglobin ABG Oxyhemoglobin ABG Potassium ABG Glucose Oxyhemoglobin Carboxyhemoglobin Sodium Potassium Chloride Carbon Dioxide BUN Creatinine Glucose POC Glucose 133 H 125 H 116 H Calcium Ferritin Total Bilirubin Alkaline Phosphatase Lactate Dehydrogenase Total Creatine Kinase CK-MB (CK-2) Rel Index Troponin T C-Reactive Protein Total Protein Albumin Prealbumin LDL Cholesterol Direct HDL Cholesterol Arterial Blood Glucose Arterial Blood Ionized Calcium Urine WBC (Auto) 04/08/20 04/09/20 04/09/20 17:43 05:47 12:22 WBC RBC Hgb Hct MCV MCH RDW Plt Count Lymph % (Auto) [place] % (Auto) Eos % (Auto) Lymph # (Auto) [place] # (Auto) Eos # (Auto) Seg Neutrophils % Seg Neuts % (Manual) Lymphocytes % (Manual) Monocytes % (Manual) Basophils % (Manual) Seg Neutrophils # Seg Neutrophils # Man Lymphocytes # (Manual) Monocytes # (Manual) Eosinophils # (Manual) Basophils # (Manual) PT INR D-Dimer ABG pH POC ABG pCO2 POC ABG pO2 ABG pO2 ABG HCO3 ABG O2 Saturation ABG Base Excess ABG Hemoglobin ABG Oxyhemoglobin ABG Potassium ABG Glucose Oxyhemoglobin Carboxyhemoglobin Sodium Potassium Chloride Carbon Dioxide BUN Creatinine Glucose POC Glucose 123 H 108 H 116 H Calcium Ferritin Total Bilirubin Alkaline Phosphatase Lactate Dehydrogenase Total Creatine Kinase CK-MB (CK-2) Rel Index Troponin T C-Reactive Protein Total Protein Albumin Prealbumin LDL Cholesterol Direct HDL Cholesterol Arterial Blood Glucose Arterial Blood Ionized Calcium Urine WBC (Auto) 04/09/20 04/09/20 04/10/20 17:24 23:52 06:10 WBC RBC Hgb Hct MCV MCH RDW Plt Count Lymph % (Auto) [place] % (Auto) Eos % (Auto) Lymph # (Auto) [place] # (Auto) Eos # (Auto) Seg Neutrophils % Seg Neuts % (Manual) Lymphocytes % (Manual) Monocytes % (Manual) Basophils % (Manual) Seg Neutrophils # Seg Neutrophils # Man Lymphocytes # (Manual) Monocytes # (Manual) Eosinophils # (Manual) Basophils # (Manual) PT INR D-Dimer ABG pH POC ABG pCO2 POC ABG pO2 ABG pO2 ABG HCO3 ABG O2 Saturation ABG Base Excess ABG Hemoglobin ABG Oxyhemoglobin ABG Potassium ABG Glucose Oxyhemoglobin Carboxyhemoglobin Sodium Potassium Chloride Carbon Dioxide BUN Creatinine Glucose POC Glucose 108 H 126 H 122 H Calcium Ferritin Total Bilirubin Alkaline Phosphatase Lactate Dehydrogenase Total Creatine Kinase CK-MB (CK-2) Rel Index Troponin T C-Reactive Protein Total Protein Albumin Prealbumin LDL Cholesterol Direct HDL Cholesterol Arterial Blood Glucose Arterial Blood Ionized Calcium Urine WBC (Auto) 04/10/20 04/10/20 04/10/20 11:27 18:11 23:24 WBC RBC Hgb Hct MCV MCH RDW Plt Count Lymph % (Auto) [place] % (Auto) Eos % (Auto) Lymph # (Auto) [place] # (Auto) Eos # (Auto) Seg Neutrophils % Seg Neuts % (Manual) Lymphocytes % (Manual) Monocytes % (Manual) Basophils % (Manual) Seg Neutrophils # Seg Neutrophils # Man Lymphocytes # (Manual) Monocytes # (Manual) Eosinophils # (Manual) Basophils # (Manual) PT INR D-Dimer ABG pH POC ABG pCO2 POC ABG pO2 ABG pO2 ABG HCO3 ABG O2 Saturation ABG Base Excess ABG Hemoglobin ABG Oxyhemoglobin ABG Potassium ABG Glucose Oxyhemoglobin Carboxyhemoglobin Sodium Potassium Chloride Carbon Dioxide BUN Creatinine Glucose POC Glucose 129 H 125 H 107 H Calcium Ferritin Total Bilirubin Alkaline Phosphatase Lactate Dehydrogenase Total Creatine Kinase CK-MB (CK-2) Rel Index Troponin T C-Reactive Protein Total Protein Albumin Prealbumin LDL Cholesterol Direct HDL Cholesterol Arterial Blood Glucose Arterial Blood Ionized Calcium Urine WBC (Auto) 04/11/20 04/11/20 04/11/20 05:28 11:46 23:49 WBC RBC Hgb Hct MCV MCH RDW Plt Count Lymph % (Auto) [place] % (Auto) Eos % (Auto) Lymph # (Auto) [place] # (Auto) Eos # (Auto) Seg Neutrophils % Seg Neuts % (Manual) Lymphocytes % (Manual) Monocytes % (Manual) Basophils % (Manual) Seg Neutrophils # Seg Neutrophils # Man Lymphocytes # (Manual) Monocytes # (Manual) Eosinophils # (Manual) Basophils # (Manual) PT INR D-Dimer ABG pH POC ABG pCO2 POC ABG pO2 ABG pO2 ABG HCO3 ABG O2 Saturation ABG Base Excess ABG Hemoglobin ABG Oxyhemoglobin ABG Potassium ABG Glucose Oxyhemoglobin Carboxyhemoglobin Sodium Potassium Chloride Carbon Dioxide BUN Creatinine Glucose POC Glucose 122 H 122 H 116 H Calcium Ferritin Total Bilirubin Alkaline Phosphatase Lactate Dehydrogenase Total Creatine Kinase CK-MB (CK-2) Rel Index Troponin T C-Reactive Protein Total Protein Albumin Prealbumin LDL Cholesterol Direct HDL Cholesterol Arterial Blood Glucose Arterial Blood Ionized Calcium Urine WBC (Auto) 04/12/20 04/12/20 04/12/20 09:07 09:07 11:39 WBC 13.1 H RBC 3.59 L Hgb 9.5 L Hct 29.8 L MCV 83 L MCH 26 L RDW 16.6 H Plt Count 591 H Lymph % (Auto) [place] % (Auto) Eos % (Auto) Lymph # (Auto) [place] # (Auto) Eos # (Auto) Seg Neutrophils % Seg Neuts % (Manual) 86.0 H Lymphocytes % (Manual) 7.0 L Monocytes % (Manual) Basophils % (Manual) Seg Neutrophils # Seg Neutrophils # Man 11.3 H Lymphocytes # (Manual) 0.9 L Monocytes # (Manual) Eosinophils # (Manual) Basophils # (Manual) PT INR D-Dimer ABG pH POC ABG pCO2 POC ABG pO2 ABG pO2 ABG HCO3 ABG O2 Saturation ABG Base Excess ABG Hemoglobin ABG Oxyhemoglobin ABG Potassium ABG Glucose Oxyhemoglobin Carboxyhemoglobin Sodium Potassium Chloride Carbon Dioxide 36 H BUN Creatinine < 0.2 L Glucose 132 H POC Glucose 136 H Calcium Ferritin Total Bilirubin Alkaline Phosphatase Lactate Dehydrogenase Total Creatine Kinase CK-MB (CK-2) Rel Index Troponin T C-Reactive Protein Total Protein Albumin 2.7 L Prealbumin LDL Cholesterol Direct HDL Cholesterol Arterial Blood Glucose Arterial Blood Ionized Calcium Urine WBC (Auto) 04/12/20 04/12/20 04/13/20 18:13 23:07 05:45 WBC RBC Hgb Hct MCV MCH RDW Plt Count Lymph % (Auto) [place] % (Auto) Eos % (Auto) Lymph # (Auto) [place] # (Auto) Eos # (Auto) Seg Neutrophils % Seg Neuts % (Manual) Lymphocytes % (Manual) Monocytes % (Manual) Basophils % (Manual) Seg Neutrophils # Seg Neutrophils # Man Lymphocytes # (Manual) Monocytes # (Manual) Eosinophils # (Manual) Basophils # (Manual) PT INR D-Dimer ABG pH POC ABG pCO2 POC ABG pO2 ABG pO2 ABG HCO3 ABG O2 Saturation ABG Base Excess ABG Hemoglobin ABG Oxyhemoglobin ABG Potassium ABG Glucose Oxyhemoglobin Carboxyhemoglobin Sodium Potassium Chloride Carbon Dioxide BUN Creatinine Glucose POC Glucose 107 H 106 H 125 H Calcium Ferritin Total Bilirubin Alkaline Phosphatase Lactate Dehydrogenase Total Creatine Kinase CK-MB (CK-2) Rel Index Troponin T C-Reactive Protein Total Protein Albumin Prealbumin LDL Cholesterol Direct HDL Cholesterol Arterial Blood Glucose Arterial Blood Ionized Calcium Urine WBC (Auto) 04/13/20 04/13/20 04/13/20 11:18 17:56 23:33 WBC RBC Hgb Hct MCV MCH RDW Plt Count Lymph % (Auto) [place] % (Auto) Eos % (Auto) Lymph # (Auto) [place] # (Auto) Eos # (Auto) Seg Neutrophils % Seg Neuts % (Manual) Lymphocytes % (Manual) Monocytes % (Manual) Basophils % (Manual) Seg Neutrophils # Seg Neutrophils # Man Lymphocytes # (Manual) Monocytes # (Manual) Eosinophils # (Manual) Basophils # (Manual) PT INR D-Dimer ABG pH POC ABG pCO2 POC ABG pO2 ABG pO2 ABG HCO3 ABG O2 Saturation ABG Base Excess ABG Hemoglobin ABG Oxyhemoglobin ABG Potassium ABG Glucose Oxyhemoglobin Carboxyhemoglobin Sodium Potassium Chloride Carbon Dioxide BUN Creatinine Glucose POC Glucose 133 H 110 H 114 H Calcium Ferritin Total Bilirubin Alkaline Phosphatase Lactate Dehydrogenase Total Creatine Kinase CK-MB (CK-2) Rel Index Troponin T C-Reactive Protein Total Protein Albumin Prealbumin LDL Cholesterol Direct HDL Cholesterol Arterial Blood Glucose Arterial Blood Ionized Calcium Urine WBC (Auto) 04/14/20 04/14/20 04/14/20 05:58 11:45 17:48 WBC RBC Hgb Hct MCV MCH RDW Plt Count Lymph % (Auto) [place] % (Auto) Eos % (Auto) Lymph # (Auto) [place] # (Auto) Eos # (Auto) Seg Neutrophils % Seg Neuts % (Manual) Lymphocytes % (Manual) Monocytes % (Manual) Basophils % (Manual) Seg Neutrophils # Seg Neutrophils # Man Lymphocytes # (Manual) Monocytes # (Manual) Eosinophils # (Manual) Basophils # (Manual) PT INR D-Dimer ABG pH POC ABG pCO2 POC ABG pO2 ABG pO2 ABG HCO3 ABG O2 Saturation ABG Base Excess ABG Hemoglobin ABG Oxyhemoglobin ABG Potassium ABG Glucose Oxyhemoglobin Carboxyhemoglobin Sodium Potassium Chloride Carbon Dioxide BUN Creatinine Glucose POC Glucose 115 H 122 H 124 H Calcium Ferritin Total Bilirubin Alkaline Phosphatase Lactate Dehydrogenase Total Creatine Kinase CK-MB (CK-2) Rel Index Troponin T C-Reactive Protein Total Protein Albumin Prealbumin LDL Cholesterol Direct HDL Cholesterol Arterial Blood Glucose Arterial Blood Ionized Calcium Urine WBC (Auto) 04/15/20 04/15/20 04/15/20 00:11 05:38 11:31 WBC RBC Hgb Hct MCV MCH RDW Plt Count Lymph % (Auto) [place] % (Auto) Eos % (Auto) Lymph # (Auto) [place] # (Auto) Eos # (Auto) Seg Neutrophils % Seg Neuts % (Manual) Lymphocytes % (Manual) Monocytes % (Manual) Basophils % (Manual) Seg Neutrophils # Seg Neutrophils # Man Lymphocytes # (Manual) Monocytes # (Manual) Eosinophils # (Manual) Basophils # (Manual) PT INR D-Dimer ABG pH POC ABG pCO2 POC ABG pO2 ABG pO2 ABG HCO3 ABG O2 Saturation ABG Base Excess ABG Hemoglobin ABG Oxyhemoglobin ABG Potassium ABG Glucose Oxyhemoglobin Carboxyhemoglobin Sodium Potassium Chloride Carbon Dioxide BUN Creatinine Glucose POC Glucose 120 H 109 H 123 H Calcium Ferritin Total Bilirubin Alkaline Phosphatase Lactate Dehydrogenase Total Creatine Kinase CK-MB (CK-2) Rel Index Troponin T C-Reactive Protein Total Protein Albumin Prealbumin LDL Cholesterol Direct HDL Cholesterol Arterial Blood Glucose Arterial Blood Ionized Calcium Urine WBC (Auto) 04/15/20 04/16/20 04/16/20 17:35 06:00 11:29 WBC RBC Hgb Hct MCV MCH RDW Plt Count Lymph % (Auto) [place] % (Auto) Eos % (Auto) Lymph # (Auto) [place] # (Auto) Eos # (Auto) Seg Neutrophils % Seg Neuts % (Manual) Lymphocytes % (Manual) Monocytes % (Manual) Basophils % (Manual) Seg Neutrophils # Seg Neutrophils # Man Lymphocytes # (Manual) Monocytes # (Manual) Eosinophils # (Manual) Basophils # (Manual) PT INR D-Dimer ABG pH POC ABG pCO2 POC ABG pO2 ABG pO2 ABG HCO3 ABG O2 Saturation ABG Base Excess ABG Hemoglobin ABG Oxyhemoglobin ABG Potassium ABG Glucose Oxyhemoglobin Carboxyhemoglobin Sodium Potassium Chloride Carbon Dioxide BUN Creatinine Glucose POC Glucose 111 H 142 H 108 H Calcium Ferritin Total Bilirubin Alkaline Phosphatase Lactate Dehydrogenase Total Creatine Kinase CK-MB (CK-2) Rel Index Troponin T C-Reactive Protein Total Protein Albumin Prealbumin LDL Cholesterol Direct HDL Cholesterol Arterial Blood Glucose Arterial Blood Ionized Calcium Urine WBC (Auto) 04/17/20 04/17/20 04/17/20 05:09 06:53 06:53 WBC 14.2 H RBC Hgb 10.1 L Hct 31.5 L MCV MCH 27 L RDW 17.2 H Plt Count 643 H Lymph % (Auto) [place] % (Auto) Eos % (Auto) Lymph # (Auto) [place] # (Auto) Eos # (Auto) Seg Neutrophils % Seg Neuts % (Manual) Lymphocytes % (Manual) Monocytes % (Manual) Basophils % (Manual) Seg Neutrophils # Seg Neutrophils # Man Lymphocytes # (Manual) Monocytes # (Manual) Eosinophils # (Manual) Basophils # (Manual) PT INR D-Dimer ABG pH POC ABG pCO2 POC ABG pO2 ABG pO2 ABG HCO3 ABG O2 Saturation ABG Base Excess ABG Hemoglobin ABG Oxyhemoglobin ABG Potassium ABG Glucose Oxyhemoglobin Carboxyhemoglobin Sodium Potassium Chloride 97.7 L Carbon Dioxide 38 H BUN Creatinine < 0.2 L Glucose 126 H POC Glucose 131 H Calcium Ferritin Total Bilirubin Alkaline Phosphatase Lactate Dehydrogenase Total Creatine Kinase CK-MB (CK-2) Rel Index Troponin T C-Reactive Protein Total Protein Albumin Prealbumin LDL Cholesterol Direct HDL Cholesterol Arterial Blood Glucose Arterial Blood Ionized Calcium Urine WBC (Auto) 04/17/20 04/18/20 04/18/20 11:21 00:23 04:01 WBC 15.3 H RBC Hgb 10.1 L Hct 31.9 L MCV 82 L MCH 26 L RDW 17.2 H Plt Count 665 H Lymph % (Auto) 12.9 L [place] % (Auto) Eos % (Auto) Lymph # (Auto) [place] # (Auto) 1.1 H Eos # (Auto) Seg Neutrophils % 78.0 H Seg Neuts % (Manual) Lymphocytes % (Manual) Monocytes % (Manual) Basophils % (Manual) Seg Neutrophils # 11.9 H Seg Neutrophils # Man Lymphocytes # (Manual) Monocytes # (Manual) Eosinophils # (Manual) Basophils # (Manual) PT INR D-Dimer ABG pH POC ABG pCO2 POC ABG pO2 ABG pO2 ABG HCO3 ABG O2 Saturation ABG Base Excess ABG Hemoglobin ABG Oxyhemoglobin ABG Potassium ABG Glucose Oxyhemoglobin Carboxyhemoglobin Sodium Potassium Chloride Carbon Dioxide BUN Creatinine Glucose POC Glucose 140 H 125 H Calcium Ferritin Total Bilirubin Alkaline Phosphatase Lactate Dehydrogenase Total Creatine Kinase CK-MB (CK-2) Rel Index Troponin T C-Reactive Protein Total Protein Albumin Prealbumin LDL Cholesterol Direct HDL Cholesterol Arterial Blood Glucose Arterial Blood Ionized Calcium Urine WBC (Auto) 04/18/20 04/18/20 04/18/20 04:01 11:29 17:30 WBC RBC Hgb Hct MCV MCH RDW Plt Count Lymph % (Auto) [place] % (Auto) Eos % (Auto) Lymph # (Auto) [place] # (Auto) Eos # (Auto) Seg Neutrophils % Seg Neuts % (Manual) Lymphocytes % (Manual) Monocytes % (Manual) Basophils % (Manual) Seg Neutrophils # Seg Neutrophils # Man Lymphocytes # (Manual) Monocytes # (Manual) Eosinophils # (Manual) Basophils # (Manual) PT INR D-Dimer ABG pH POC ABG pCO2 POC ABG pO2 ABG pO2 ABG HCO3 ABG O2 Saturation ABG Base Excess ABG Hemoglobin ABG Oxyhemoglobin ABG Potassium ABG Glucose Oxyhemoglobin Carboxyhemoglobin Sodium Potassium Chloride 97.0 L Carbon Dioxide 38 H BUN Creatinine < 0.2 L Glucose 117 H POC Glucose 136 H 107 H Calcium Ferritin Total Bilirubin Alkaline Phosphatase Lactate Dehydrogenase Total Creatine Kinase CK-MB (CK-2) Rel Index Troponin T C-Reactive Protein Total Protein Albumin Prealbumin LDL Cholesterol Direct HDL Cholesterol Arterial Blood Glucose Arterial Blood Ionized Calcium Urine WBC (Auto) 04/18/20 04/19/20 04/19/20 23:19 06:51 06:51 WBC 12.2 H RBC Hgb 9.8 L Hct 31.1 L MCV 82 L MCH 26 L RDW 17.2 H Plt Count 549 H Lymph % (Auto) 6.5 L [place] % (Auto) Eos % (Auto) Lymph # (Auto) 0.8 L [place] # (Auto) Eos # (Auto) Seg Neutrophils % 86.7 H Seg Neuts % (Manual) Lymphocytes % (Manual) Monocytes % (Manual) Basophils % (Manual) Seg Neutrophils # 10.6 H Seg Neutrophils # Man Lymphocytes # (Manual) Monocytes # (Manual) Eosinophils # (Manual) Basophils # (Manual) PT INR D-Dimer ABG pH POC ABG pCO2 POC ABG pO2 ABG pO2 ABG HCO3 ABG O2 Saturation ABG Base Excess ABG Hemoglobin ABG Oxyhemoglobin ABG Potassium ABG Glucose Oxyhemoglobin Carboxyhemoglobin Sodium Potassium Chloride 97.8 L Carbon Dioxide 38 H BUN Creatinine < 0.2 L Glucose 123 H POC Glucose 127 H Calcium Ferritin Total Bilirubin Alkaline Phosphatase Lactate Dehydrogenase Total Creatine Kinase CK-MB (CK-2) Rel Index Troponin T C-Reactive Protein Total Protein Albumin Prealbumin LDL Cholesterol Direct HDL Cholesterol Arterial Blood Glucose Arterial Blood Ionized Calcium Urine WBC (Auto) 04/19/20 04/19/20 04/20/20 13:41 18:33 05:56 WBC RBC Hgb Hct MCV MCH RDW Plt Count Lymph % (Auto) [place] % (Auto) Eos % (Auto) Lymph # (Auto) [place] # (Auto) Eos # (Auto) Seg Neutrophils % Seg Neuts % (Manual) Lymphocytes % (Manual) Monocytes % (Manual) Basophils % (Manual) Seg Neutrophils # Seg Neutrophils # Man Lymphocytes # (Manual) Monocytes # (Manual) Eosinophils # (Manual) Basophils # (Manual) PT INR D-Dimer ABG pH POC ABG pCO2 POC ABG pO2 ABG pO2 ABG HCO3 ABG O2 Saturation ABG Base Excess ABG Hemoglobin ABG Oxyhemoglobin ABG Potassium ABG Glucose Oxyhemoglobin Carboxyhemoglobin Sodium Potassium Chloride Carbon Dioxide BUN Creatinine Glucose POC Glucose 116 H 124 H 130 H Calcium Ferritin Total Bilirubin Alkaline Phosphatase Lactate Dehydrogenase Total Creatine Kinase CK-MB (CK-2) Rel Index Troponin T C-Reactive Protein Total Protein Albumin Prealbumin LDL Cholesterol Direct HDL Cholesterol Arterial Blood Glucose Arterial Blood Ionized Calcium Urine WBC (Auto) 04/20/20 04/20/20 04/20/20 06:28 06:28 11:46 WBC RBC Hgb 10.2 L Hct 31.5 L MCV 82 L MCH 27 L RDW 17.1 H Plt Count 546 H Lymph % (Auto) 10.0 L [place] % (Auto) 9.8 H Eos % (Auto) Lymph # (Auto) 1.1 L [place] # (Auto) 1.1 H Eos # (Auto) Seg Neutrophils % 78.4 H Seg Neuts % (Manual) Lymphocytes % (Manual) Monocytes % (Manual) Basophils % (Manual) Seg Neutrophils # 8.5 H Seg Neutrophils # Man Lymphocytes # (Manual) Monocytes # (Manual) Eosinophils # (Manual) Basophils # (Manual) PT INR D-Dimer ABG pH POC ABG pCO2 POC ABG pO2 ABG pO2 ABG HCO3 ABG O2 Saturation ABG Base Excess ABG Hemoglobin ABG Oxyhemoglobin ABG Potassium ABG Glucose Oxyhemoglobin Carboxyhemoglobin Sodium Potassium Chloride 97.0 L Carbon Dioxide 38 H BUN Creatinine < 0.2 L Glucose 138 H POC Glucose 130 H Calcium Ferritin Total Bilirubin Alkaline Phosphatase Lactate Dehydrogenase Total Creatine Kinase CK-MB (CK-2) Rel Index Troponin T C-Reactive Protein Total Protein Albumin Prealbumin LDL Cholesterol Direct HDL Cholesterol Arterial Blood Glucose Arterial Blood Ionized Calcium Urine WBC (Auto) 04/20/20 04/21/20 04/21/20 23:31 05:55 05:55 WBC RBC Hgb 10.0 L Hct 31.1 L MCV 82 L MCH 26 L RDW 17.0 H Plt Count 535 H Lymph % (Auto) [place] % (Auto) 9.2 H Eos % (Auto) Lymph # (Auto) 1.1 L [place] # (Auto) Eos # (Auto) Seg Neutrophils % 75.4 H Seg Neuts % (Manual) Lymphocytes % (Manual) Monocytes % (Manual) Basophils % (Manual) Seg Neutrophils # Seg Neutrophils # Man Lymphocytes # (Manual) Monocytes # (Manual) Eosinophils # (Manual) Basophils # (Manual) PT INR D-Dimer ABG pH POC ABG pCO2 POC ABG pO2 ABG pO2 ABG HCO3 ABG O2 Saturation ABG Base Excess ABG Hemoglobin ABG Oxyhemoglobin ABG Potassium ABG Glucose Oxyhemoglobin Carboxyhemoglobin Sodium Potassium Chloride 95.0 L Carbon Dioxide 34 H BUN Creatinine < 0.2 L Glucose 125 H POC Glucose 116 H Calcium Ferritin Total Bilirubin Alkaline Phosphatase Lactate Dehydrogenase Total Creatine Kinase CK-MB (CK-2) Rel Index Troponin T C-Reactive Protein Total Protein Albumin Prealbumin LDL Cholesterol Direct HDL Cholesterol Arterial Blood Glucose Arterial Blood Ionized Calcium Urine WBC (Auto) 04/22/20 04/22/20 04/22/20 00:01 07:45 07:45 WBC RBC Hgb 10.0 L Hct 30.7 L MCV 81 L MCH 27 L RDW 17.1 H Plt Count 490 H Lymph % (Auto) [place] % (Auto) Eos % (Auto) Lymph # (Auto) [place] # (Auto) Eos # (Auto) Seg Neutrophils % Seg Neuts % (Manual) 75.0 H Lymphocytes % (Manual) 11.0 L Monocytes % (Manual) 9.0 H Basophils % (Manual) Seg Neutrophils # Seg Neutrophils # Man Lymphocytes # (Manual) 0.8 L Monocytes # (Manual) Eosinophils # (Manual) Basophils # (Manual) PT INR D-Dimer ABG pH POC ABG pCO2 POC ABG pO2 ABG pO2 ABG HCO3 ABG O2 Saturation ABG Base Excess ABG Hemoglobin ABG Oxyhemoglobin ABG Potassium ABG Glucose Oxyhemoglobin Carboxyhemoglobin Sodium Potassium Chloride 96.3 L Carbon Dioxide 40 H BUN Creatinine < 0.2 L Glucose 109 H POC Glucose 110 H Calcium Ferritin Total Bilirubin Alkaline Phosphatase Lactate Dehydrogenase Total Creatine Kinase CK-MB (CK-2) Rel Index Troponin T C-Reactive Protein Total Protein Albumin Prealbumin LDL Cholesterol Direct HDL Cholesterol Arterial Blood Glucose Arterial Blood Ionized Calcium Urine WBC (Auto) 04/23/20 04/23/20 04/23/20 04:28 04:28 04:28 WBC RBC 3.64 L Hgb 9.7 L Hct 29.4 L MCV 81 L MCH 27 L RDW 17.2 H Plt Count 527 H Lymph % (Auto) [place] % (Auto) 8.9 H Eos % (Auto) Lymph # (Auto) [place] # (Auto) Eos # (Auto) Seg Neutrophils % Seg Neuts % (Manual) Lymphocytes % (Manual) Monocytes % (Manual) Basophils % (Manual) Seg Neutrophils # Seg Neutrophils # Man Lymphocytes # (Manual) Monocytes # (Manual) Eosinophils # (Manual) Basophils # (Manual) PT INR D-Dimer ABG pH POC ABG pCO2 POC ABG pO2 ABG pO2 ABG HCO3 ABG O2 Saturation ABG Base Excess ABG Hemoglobin ABG Oxyhemoglobin ABG Potassium ABG Glucose Oxyhemoglobin Carboxyhemoglobin Sodium Potassium Chloride 96.4 L Carbon Dioxide 32 H D BUN Creatinine < 0.2 L Glucose 134 H POC Glucose Calcium Ferritin Total Bilirubin Alkaline Phosphatase Lactate Dehydrogenase Total Creatine Kinase CK-MB (CK-2) Rel Index Troponin T 0.151 H* C-Reactive Protein Total Protein Albumin Prealbumin LDL Cholesterol Direct HDL Cholesterol 29 L Arterial Blood Glucose Arterial Blood Ionized Calcium Urine WBC (Auto) 04/23/20 04/23/20 04/24/20 06:03 23:41 05:28 WBC RBC 3.56 L Hgb 9.5 L Hct 28.9 L MCV 81 L MCH 27 L RDW 17.4 H Plt Count 462 H Lymph % (Auto) [place] % (Auto) Eos % (Auto) Lymph # (Auto) [place] # (Auto) Eos # (Auto) Seg Neutrophils % Seg Neuts % (Manual) 80.0 H Lymphocytes % (Manual) Monocytes % (Manual) Basophils % (Manual) Seg Neutrophils # Seg Neutrophils # Man Lymphocytes # (Manual) Monocytes # (Manual) Eosinophils # (Manual) Basophils # (Manual) PT INR D-Dimer ABG pH POC ABG pCO2 POC ABG pO2 ABG pO2 ABG HCO3 ABG O2 Saturation ABG Base Excess ABG Hemoglobin ABG Oxyhemoglobin ABG Potassium ABG Glucose Oxyhemoglobin Carboxyhemoglobin Sodium Potassium Chloride Carbon Dioxide BUN Creatinine Glucose POC Glucose 132 H 117 H Calcium Ferritin Total Bilirubin Alkaline Phosphatase Lactate Dehydrogenase Total Creatine Kinase CK-MB (CK-2) Rel Index Troponin T C-Reactive Protein Total Protein Albumin Prealbumin LDL Cholesterol Direct HDL Cholesterol Arterial Blood Glucose Arterial Blood Ionized Calcium Urine WBC (Auto) 04/24/20 04/24/20 04/24/20 05:28 05:28 05:33 WBC RBC Hgb Hct MCV MCH RDW Plt Count Lymph % (Auto) [place] % (Auto) Eos % (Auto) Lymph # (Auto) [place] # (Auto) Eos # (Auto) Seg Neutrophils % Seg Neuts % (Manual) Lymphocytes % (Manual) Monocytes % (Manual) Basophils % (Manual) Seg Neutrophils # Seg Neutrophils # Man Lymphocytes # (Manual) Monocytes # (Manual) Eosinophils # (Manual) Basophils # (Manual) PT INR D-Dimer ABG pH POC ABG pCO2 POC ABG pO2 ABG pO2 ABG HCO3 ABG O2 Saturation ABG Base Excess ABG Hemoglobin ABG Oxyhemoglobin ABG Potassium ABG Glucose Oxyhemoglobin Carboxyhemoglobin Sodium Potassium Chloride 96.1 L Carbon Dioxide 40 H D BUN Creatinine < 0.2 L Glucose 115 H POC Glucose 109 H Calcium Ferritin Total Bilirubin Alkaline Phosphatase Lactate Dehydrogenase Total Creatine Kinase CK-MB (CK-2) Rel Index Troponin T 0.181 H* C-Reactive Protein Total Protein Albumin Prealbumin LDL Cholesterol Direct HDL Cholesterol Arterial Blood Glucose Arterial Blood Ionized Calcium Urine WBC (Auto) 04/24/20 04/24/20 04/25/20 11:17 18:23 00:12 WBC RBC Hgb Hct MCV MCH RDW Plt Count Lymph % (Auto) [place] % (Auto) Eos % (Auto) Lymph # (Auto) [place] # (Auto) Eos # (Auto) Seg Neutrophils % Seg Neuts % (Manual) Lymphocytes % (Manual) Monocytes % (Manual) Basophils % (Manual) Seg Neutrophils # Seg Neutrophils # Man Lymphocytes # (Manual) Monocytes # (Manual) Eosinophils # (Manual) Basophils # (Manual) PT INR D-Dimer ABG pH POC ABG pCO2 POC ABG pO2 ABG pO2 ABG HCO3 ABG O2 Saturation ABG Base Excess ABG Hemoglobin ABG Oxyhemoglobin ABG Potassium ABG Glucose Oxyhemoglobin Carboxyhemoglobin Sodium Potassium Chloride Carbon Dioxide BUN Creatinine Glucose POC Glucose 117 H 109 H 113 H Calcium Ferritin Total Bilirubin Alkaline Phosphatase Lactate Dehydrogenase Total Creatine Kinase CK-MB (CK-2) Rel Index Troponin T C-Reactive Protein Total Protein Albumin Prealbumin LDL Cholesterol Direct HDL Cholesterol Arterial Blood Glucose Arterial Blood Ionized Calcium Urine WBC (Auto) 04/25/20 04/25/20 04/25/20 06:34 06:34 11:28 WBC 11.7 H RBC Hgb 10.0 L Hct 31.7 L MCV 82 L MCH 26 L RDW 17.5 H Plt Count 564 H Lymph % (Auto) [place] % (Auto) Eos % (Auto) Lymph # (Auto) [place] # (Auto) Eos # (Auto) Seg Neutrophils % Seg Neuts % (Manual) 78.0 H Lymphocytes % (Manual) 10.0 L Monocytes % (Manual) 9.0 H Basophils % (Manual) Seg Neutrophils # Seg Neutrophils # Man 9.1 H Lymphocytes # (Manual) Monocytes # (Manual) 1.1 H Eosinophils # (Manual) Basophils # (Manual) PT INR D-Dimer ABG pH POC ABG pCO2 POC ABG pO2 ABG pO2 ABG HCO3 ABG O2 Saturation ABG Base Excess ABG Hemoglobin ABG Oxyhemoglobin ABG Potassium ABG Glucose Oxyhemoglobin Carboxyhemoglobin Sodium Potassium Chloride Carbon Dioxide 39 H BUN Creatinine < 0.2 L Glucose 103 H POC Glucose 112 H Calcium Ferritin Total Bilirubin Alkaline Phosphatase Lactate Dehydrogenase Total Creatine Kinase CK-MB (CK-2) Rel Index Troponin T C-Reactive Protein Total Protein Albumin Prealbumin LDL Cholesterol Direct HDL Cholesterol Arterial Blood Glucose Arterial Blood Ionized Calcium Urine WBC (Auto) 04/27/20 04/27/20 04/27/20 11:48 17:08 23:31 WBC RBC Hgb Hct MCV MCH RDW Plt Count Lymph % (Auto) [place] % (Auto) Eos % (Auto) Lymph # (Auto) [place] # (Auto) Eos # (Auto) Seg Neutrophils % Seg Neuts % (Manual) Lymphocytes % (Manual) Monocytes % (Manual) Basophils % (Manual) Seg Neutrophils # Seg Neutrophils # Man Lymphocytes # (Manual) Monocytes # (Manual) Eosinophils # (Manual) Basophils # (Manual) PT INR D-Dimer ABG pH POC ABG pCO2 POC ABG pO2 ABG pO2 ABG HCO3 ABG O2 Saturation ABG Base Excess ABG Hemoglobin ABG Oxyhemoglobin ABG Potassium ABG Glucose Oxyhemoglobin Carboxyhemoglobin Sodium Potassium Chloride Carbon Dioxide BUN Creatinine Glucose POC Glucose 124 H 118 H 122 H Calcium Ferritin Total Bilirubin Alkaline Phosphatase Lactate Dehydrogenase Total Creatine Kinase CK-MB (CK-2) Rel Index Troponin T C-Reactive Protein Total Protein Albumin Prealbumin LDL Cholesterol Direct HDL Cholesterol Arterial Blood Glucose Arterial Blood Ionized Calcium Urine WBC (Auto) 04/28/20 04/29/20 04/29/20 05:42 00:14 05:30 WBC RBC Hgb Hct MCV MCH RDW Plt Count Lymph % (Auto) [place] % (Auto) Eos % (Auto) Lymph # (Auto) [place] # (Auto) Eos # (Auto) Seg Neutrophils % Seg Neuts % (Manual) Lymphocytes % (Manual) Monocytes % (Manual) Basophils % (Manual) Seg Neutrophils # Seg Neutrophils # Man Lymphocytes # (Manual) Monocytes # (Manual) Eosinophils # (Manual) Basophils # (Manual) PT INR D-Dimer ABG pH POC ABG pCO2 POC ABG pO2 ABG pO2 ABG HCO3 ABG O2 Saturation ABG Base Excess ABG Hemoglobin ABG Oxyhemoglobin ABG Potassium ABG Glucose Oxyhemoglobin Carboxyhemoglobin Sodium Potassium Chloride Carbon Dioxide BUN Creatinine Glucose POC Glucose 122 H 115 H 123 H Calcium Ferritin Total Bilirubin Alkaline Phosphatase Lactate Dehydrogenase Total Creatine Kinase CK-MB (CK-2) Rel Index Troponin T C-Reactive Protein Total Protein Albumin Prealbumin LDL Cholesterol Direct HDL Cholesterol Arterial Blood Glucose Arterial Blood Ionized Calcium Urine WBC (Auto) 04/30/20 05/01/20 05/01/20 00:29 05:39 12:30 WBC RBC Hgb Hct MCV MCH RDW Plt Count Lymph % (Auto) [place] % (Auto) Eos % (Auto) Lymph # (Auto) [place] # (Auto) Eos # (Auto) Seg Neutrophils % Seg Neuts % (Manual) Lymphocytes % (Manual) Monocytes % (Manual) Basophils % (Manual) Seg Neutrophils # Seg Neutrophils # Man Lymphocytes # (Manual) Monocytes # (Manual) Eosinophils # (Manual) Basophils # (Manual) PT INR D-Dimer ABG pH POC ABG pCO2 POC ABG pO2 ABG pO2 ABG HCO3 ABG O2 Saturation ABG Base Excess ABG Hemoglobin ABG Oxyhemoglobin ABG Potassium ABG Glucose Oxyhemoglobin Carboxyhemoglobin Sodium Potassium Chloride Carbon Dioxide BUN Creatinine Glucose POC Glucose 106 H 109 H 108 H Calcium Ferritin Total Bilirubin Alkaline Phosphatase Lactate Dehydrogenase Total Creatine Kinase CK-MB (CK-2) Rel Index Troponin T C-Reactive Protein Total Protein Albumin Prealbumin LDL Cholesterol Direct HDL Cholesterol Arterial Blood Glucose Arterial Blood Ionized Calcium Urine WBC (Auto) 05/01/20 05/03/20 05/03/20 23:35 05:09 11:36 WBC RBC Hgb Hct MCV MCH RDW Plt Count Lymph % (Auto) [place] % (Auto) Eos % (Auto) Lymph # (Auto) [place] # (Auto) Eos # (Auto) Seg Neutrophils % Seg Neuts % (Manual) Lymphocytes % (Manual) Monocytes % (Manual) Basophils % (Manual) Seg Neutrophils # Seg Neutrophils # Man Lymphocytes # (Manual) Monocytes # (Manual) Eosinophils # (Manual) Basophils # (Manual) PT INR D-Dimer ABG pH POC ABG pCO2 POC ABG pO2 ABG pO2 ABG HCO3 ABG O2 Saturation ABG Base Excess ABG Hemoglobin ABG Oxyhemoglobin ABG Potassium ABG Glucose Oxyhemoglobin Carboxyhemoglobin Sodium Potassium Chloride Carbon Dioxide BUN Creatinine Glucose POC Glucose 116 H 117 H 116 H Calcium Ferritin Total Bilirubin Alkaline Phosphatase Lactate Dehydrogenase Total Creatine Kinase CK-MB (CK-2) Rel Index Troponin T C-Reactive Protein Total Protein Albumin Prealbumin LDL Cholesterol Direct HDL Cholesterol Arterial Blood Glucose Arterial Blood Ionized Calcium Urine WBC (Auto) 05/03/20 05/03/20 05/03/20 14:06 14:06 23:39 WBC 12.5 H RBC Hgb 10.0 L Hct 31.2 L MCV 80 L MCH 26 L RDW 17.6 H Plt Count 488 H Lymph % (Auto) [place] % (Auto) Eos % (Auto) Lymph # (Auto) [place] # (Auto) Eos # (Auto) Seg Neutrophils % Seg Neuts % (Manual) Lymphocytes % (Manual) Monocytes % (Manual) Basophils % (Manual) Seg Neutrophils # Seg Neutrophils # Man Lymphocytes # (Manual) Monocytes # (Manual) Eosinophils # (Manual) Basophils # (Manual) PT INR D-Dimer ABG pH POC ABG pCO2 POC ABG pO2 ABG pO2 ABG HCO3 ABG O2 Saturation ABG Base Excess ABG Hemoglobin ABG Oxyhemoglobin ABG Potassium ABG Glucose Oxyhemoglobin Carboxyhemoglobin Sodium Potassium Chloride 95.4 L Carbon Dioxide 40 H BUN Creatinine < 0.2 L Glucose 121 H POC Glucose 107 H Calcium Ferritin Total Bilirubin Alkaline Phosphatase Lactate Dehydrogenase Total Creatine Kinase CK-MB (CK-2) Rel Index Troponin T C-Reactive Protein Total Protein Albumin Prealbumin LDL Cholesterol Direct HDL Cholesterol Arterial Blood Glucose Arterial Blood Ionized Calcium Urine WBC (Auto) 05/04/20 05/04/20 05/04/20 11:31 16:57 23:18 WBC RBC Hgb Hct MCV MCH RDW Plt Count Lymph % (Auto) [place] % (Auto) Eos % (Auto) Lymph # (Auto) [place] # (Auto) Eos # (Auto) Seg Neutrophils % Seg Neuts % (Manual) Lymphocytes % (Manual) Monocytes % (Manual) Basophils % (Manual) Seg Neutrophils # Seg Neutrophils # Man Lymphocytes # (Manual) Monocytes # (Manual) Eosinophils # (Manual) Basophils # (Manual) PT INR D-Dimer ABG pH POC ABG pCO2 POC ABG pO2 ABG pO2 ABG HCO3 ABG O2 Saturation ABG Base Excess ABG Hemoglobin ABG Oxyhemoglobin ABG Potassium ABG Glucose Oxyhemoglobin Carboxyhemoglobin Sodium Potassium Chloride Carbon Dioxide BUN Creatinine Glucose POC Glucose 113 H 126 H 126 H Calcium Ferritin Total Bilirubin Alkaline Phosphatase Lactate Dehydrogenase Total Creatine Kinase CK-MB (CK-2) Rel Index Troponin T C-Reactive Protein Total Protein Albumin Prealbumin LDL Cholesterol Direct HDL Cholesterol Arterial Blood Glucose Arterial Blood Ionized Calcium Urine WBC (Auto) 05/05/20 05/05/20 05/05/20 05:32 11:11 23:57 WBC RBC Hgb Hct MCV MCH RDW Plt Count Lymph % (Auto) [place] % (Auto) Eos % (Auto) Lymph # (Auto) [place] # (Auto) Eos # (Auto) Seg Neutrophils % Seg Neuts % (Manual) Lymphocytes % (Manual) Monocytes % (Manual) Basophils % (Manual) Seg Neutrophils # Seg Neutrophils # Man Lymphocytes # (Manual) Monocytes # (Manual) Eosinophils # (Manual) Basophils # (Manual) PT INR D-Dimer ABG pH POC ABG pCO2 POC ABG pO2 ABG pO2 ABG HCO3 ABG O2 Saturation ABG Base Excess ABG Hemoglobin ABG Oxyhemoglobin ABG Potassium ABG Glucose Oxyhemoglobin Carboxyhemoglobin Sodium Potassium Chloride Carbon Dioxide BUN Creatinine Glucose POC Glucose 109 H 124 H 119 H Calcium Ferritin Total Bilirubin Alkaline Phosphatase Lactate Dehydrogenase Total Creatine Kinase CK-MB (CK-2) Rel Index Troponin T C-Reactive Protein Total Protein Albumin Prealbumin LDL Cholesterol Direct HDL Cholesterol Arterial Blood Glucose Arterial Blood Ionized Calcium Urine WBC (Auto) 05/06/20 05/06/20 05/07/20 05:34 23:08 04:43 WBC RBC Hgb 10.1 L Hct 31.9 L MCV 81 L MCH 25 L RDW 17.6 H Plt Count 506 H Lymph % (Auto) [place] % (Auto) 8.6 H Eos % (Auto) Lymph # (Auto) [place] # (Auto) 0.9 H Eos # (Auto) Seg Neutrophils % Seg Neuts % (Manual) Lymphocytes % (Manual) Monocytes % (Manual) Basophils % (Manual) Seg Neutrophils # Seg Neutrophils # Man Lymphocytes # (Manual) Monocytes # (Manual) Eosinophils # (Manual) Basophils # (Manual) PT INR D-Dimer ABG pH POC ABG pCO2 POC ABG pO2 ABG pO2 ABG HCO3 ABG O2 Saturation ABG Base Excess ABG Hemoglobin ABG Oxyhemoglobin ABG Potassium ABG Glucose Oxyhemoglobin Carboxyhemoglobin Sodium Potassium Chloride Carbon Dioxide BUN Creatinine Glucose POC Glucose 121 H 107 H Calcium Ferritin Total Bilirubin Alkaline Phosphatase Lactate Dehydrogenase Total Creatine Kinase CK-MB (CK-2) Rel Index Troponin T C-Reactive Protein Total Protein Albumin Prealbumin LDL Cholesterol Direct HDL Cholesterol Arterial Blood Glucose Arterial Blood Ionized Calcium Urine WBC (Auto) 05/07/20 05/07/20 05/07/20 06:18 17:13 23:29 WBC RBC Hgb Hct MCV MCH RDW Plt Count Lymph % (Auto) [place] % (Auto) Eos % (Auto) Lymph # (Auto) [place] # (Auto) Eos # (Auto) Seg Neutrophils % Seg Neuts % (Manual) Lymphocytes % (Manual) Monocytes % (Manual) Basophils % (Manual) Seg Neutrophils # Seg Neutrophils # Man Lymphocytes # (Manual) Monocytes # (Manual) Eosinophils # (Manual) Basophils # (Manual) PT INR D-Dimer ABG pH POC ABG pCO2 POC ABG pO2 ABG pO2 ABG HCO3 ABG O2 Saturation ABG Base Excess ABG Hemoglobin ABG Oxyhemoglobin ABG Potassium ABG Glucose Oxyhemoglobin Carboxyhemoglobin Sodium Potassium Chloride Carbon Dioxide BUN Creatinine Glucose POC Glucose 121 H 122 H 114 H Calcium Ferritin Total Bilirubin Alkaline Phosphatase Lactate Dehydrogenase Total Creatine Kinase CK-MB (CK-2) Rel Index Troponin T C-Reactive Protein Total Protein Albumin Prealbumin LDL Cholesterol Direct HDL Cholesterol Arterial Blood Glucose Arterial Blood Ionized Calcium Urine WBC (Auto) 05/08/20 05/08/20 05/08/20 05:20 11:57 23:42 WBC RBC Hgb Hct MCV MCH RDW Plt Count Lymph % (Auto) [place] % (Auto) Eos % (Auto) Lymph # (Auto) [place] # (Auto) Eos # (Auto) Seg Neutrophils % Seg Neuts % (Manual) Lymphocytes % (Manual) Monocytes % (Manual) Basophils % (Manual) Seg Neutrophils # Seg Neutrophils # Man Lymphocytes # (Manual) Monocytes # (Manual) Eosinophils # (Manual) Basophils # (Manual) PT INR D-Dimer ABG pH POC ABG pCO2 POC ABG pO2 ABG pO2 ABG HCO3 ABG O2 Saturation ABG Base Excess ABG Hemoglobin ABG Oxyhemoglobin ABG Potassium ABG Glucose Oxyhemoglobin Carboxyhemoglobin Sodium Potassium Chloride Carbon Dioxide BUN Creatinine Glucose POC Glucose 121 H 113 H 135 H Calcium Ferritin Total Bilirubin Alkaline Phosphatase Lactate Dehydrogenase Total Creatine Kinase CK-MB (CK-2) Rel Index Troponin T C-Reactive Protein Total Protein Albumin Prealbumin LDL Cholesterol Direct HDL Cholesterol Arterial Blood Glucose Arterial Blood Ionized Calcium Urine WBC (Auto) 05/09/20 05/09/20 05/09/20 05:31 11:11 16:06 WBC RBC Hgb Hct MCV MCH RDW Plt Count Lymph % (Auto) [place] % (Auto) Eos % (Auto) Lymph # (Auto) [place] # (Auto) Eos # (Auto) Seg Neutrophils % Seg Neuts % (Manual) Lymphocytes % (Manual) Monocytes % (Manual) Basophils % (Manual) Seg Neutrophils # Seg Neutrophils # Man Lymphocytes # (Manual) Monocytes # (Manual) Eosinophils # (Manual) Basophils # (Manual) PT INR D-Dimer ABG pH POC ABG pCO2 POC ABG pO2 ABG pO2 ABG HCO3 ABG O2 Saturation ABG Base Excess ABG Hemoglobin ABG Oxyhemoglobin ABG Potassium ABG Glucose Oxyhemoglobin Carboxyhemoglobin Sodium 136 L Potassium Chloride 97.0 L Carbon Dioxide 34 H BUN Creatinine < 0.2 L Glucose 107 H POC Glucose 66 L 127 H Calcium Ferritin Total Bilirubin Alkaline Phosphatase Lactate Dehydrogenase Total Creatine Kinase CK-MB (CK-2) Rel Index Troponin T C-Reactive Protein Total Protein Albumin Prealbumin LDL Cholesterol Direct HDL Cholesterol Arterial Blood Glucose Arterial Blood Ionized Calcium Urine WBC (Auto) 05/09/20 05/10/20 05/10/20 23:19 04:59 11:28 WBC RBC Hgb Hct MCV MCH RDW Plt Count Lymph % (Auto) [place] % (Auto) Eos % (Auto) Lymph # (Auto) [place] # (Auto) Eos # (Auto) Seg Neutrophils % Seg Neuts % (Manual) Lymphocytes % (Manual) Monocytes % (Manual) Basophils % (Manual) Seg Neutrophils # Seg Neutrophils # Man Lymphocytes # (Manual) Monocytes # (Manual) Eosinophils # (Manual) Basophils # (Manual) PT INR D-Dimer ABG pH POC ABG pCO2 POC ABG pO2 ABG pO2 ABG HCO3 ABG O2 Saturation ABG Base Excess ABG Hemoglobin ABG Oxyhemoglobin ABG Potassium ABG Glucose Oxyhemoglobin Carboxyhemoglobin Sodium Potassium Chloride Carbon Dioxide BUN Creatinine Glucose POC Glucose 108 H 126 H 124 H Calcium Ferritin Total Bilirubin Alkaline Phosphatase Lactate Dehydrogenase Total Creatine Kinase CK-MB (CK-2) Rel Index Troponin T C-Reactive Protein Total Protein Albumin Prealbumin LDL Cholesterol Direct HDL Cholesterol Arterial Blood Glucose Arterial Blood Ionized Calcium Urine WBC (Auto) 05/10/20 05/11/20 05/11/20 23:56 06:13 11:44 WBC RBC Hgb Hct MCV MCH RDW Plt Count Lymph % (Auto) [place] % (Auto) Eos % (Auto) Lymph # (Auto) [place] # (Auto) Eos # (Auto) Seg Neutrophils % Seg Neuts % (Manual) Lymphocytes % (Manual) Monocytes % (Manual) Basophils % (Manual) Seg Neutrophils # Seg Neutrophils # Man Lymphocytes # (Manual) Monocytes # (Manual) Eosinophils # (Manual) Basophils # (Manual) PT INR D-Dimer ABG pH POC ABG pCO2 POC ABG pO2 ABG pO2 ABG HCO3 ABG O2 Saturation ABG Base Excess ABG Hemoglobin ABG Oxyhemoglobin ABG Potassium ABG Glucose Oxyhemoglobin Carboxyhemoglobin Sodium Potassium Chloride Carbon Dioxide BUN Creatinine Glucose POC Glucose 113 H 124 H 125 H Calcium Ferritin Total Bilirubin Alkaline Phosphatase Lactate Dehydrogenase Total Creatine Kinase CK-MB (CK-2) Rel Index Troponin T C-Reactive Protein Total Protein Albumin Prealbumin LDL Cholesterol Direct HDL Cholesterol Arterial Blood Glucose Arterial Blood Ionized Calcium Urine WBC (Auto) 05/12/20 05/12/20 05/12/20 06:04 12:17 17:23 WBC RBC Hgb Hct MCV MCH RDW Plt Count Lymph % (Auto) [place] % (Auto) Eos % (Auto) Lymph # (Auto) [place] # (Auto) Eos # (Auto) Seg Neutrophils % Seg Neuts % (Manual) Lymphocytes % (Manual) Monocytes % (Manual) Basophils % (Manual) Seg Neutrophils # Seg Neutrophils # Man Lymphocytes # (Manual) Monocytes # (Manual) Eosinophils # (Manual) Basophils # (Manual) PT INR D-Dimer ABG pH POC ABG pCO2 POC ABG pO2 ABG pO2 ABG HCO3 ABG O2 Saturation ABG Base Excess ABG Hemoglobin ABG Oxyhemoglobin ABG Potassium ABG Glucose Oxyhemoglobin Carboxyhemoglobin Sodium Potassium Chloride Carbon Dioxide BUN Creatinine Glucose POC Glucose 135 H 136 H 133 H Calcium Ferritin Total Bilirubin Alkaline Phosphatase Lactate Dehydrogenase Total Creatine Kinase CK-MB (CK-2) Rel Index Troponin T C-Reactive Protein Total Protein Albumin Prealbumin LDL Cholesterol Direct HDL Cholesterol Arterial Blood Glucose Arterial Blood Ionized Calcium Urine WBC (Auto) 05/12/20 05/13/20 05/13/20 23:34 05:36 11:25 WBC RBC Hgb Hct MCV MCH RDW Plt Count Lymph % (Auto) [place] % (Auto) Eos % (Auto) Lymph # (Auto) [place] # (Auto) Eos # (Auto) Seg Neutrophils % Seg Neuts % (Manual) Lymphocytes % (Manual) Monocytes % (Manual) Basophils % (Manual) Seg Neutrophils # Seg Neutrophils # Man Lymphocytes # (Manual) Monocytes # (Manual) Eosinophils # (Manual) Basophils # (Manual) PT INR D-Dimer ABG pH POC ABG pCO2 POC ABG pO2 ABG pO2 ABG HCO3 ABG O2 Saturation ABG Base Excess ABG Hemoglobin ABG Oxyhemoglobin ABG Potassium ABG Glucose Oxyhemoglobin Carboxyhemoglobin Sodium Potassium Chloride Carbon Dioxide BUN Creatinine Glucose POC Glucose 141 H 131 H 148 H Calcium Ferritin Total Bilirubin Alkaline Phosphatase Lactate Dehydrogenase Total Creatine Kinase CK-MB (CK-2) Rel Index Troponin T C-Reactive Protein Total Protein Albumin Prealbumin LDL Cholesterol Direct HDL Cholesterol Arterial Blood Glucose Arterial Blood Ionized Calcium Urine WBC (Auto) 05/13/20 05/14/20 05/14/20 16:40 00:11 05:03 WBC RBC Hgb Hct MCV MCH RDW Plt Count Lymph % (Auto) [place] % (Auto) Eos % (Auto) Lymph # (Auto) [place] # (Auto) Eos # (Auto) Seg Neutrophils % Seg Neuts % (Manual) Lymphocytes % (Manual) Monocytes % (Manual) Basophils % (Manual) Seg Neutrophils # Seg Neutrophils # Man Lymphocytes # (Manual) Monocytes # (Manual) Eosinophils # (Manual) Basophils # (Manual) PT INR D-Dimer ABG pH POC ABG pCO2 POC ABG pO2 ABG pO2 ABG HCO3 ABG O2 Saturation ABG Base Excess ABG Hemoglobin ABG Oxyhemoglobin ABG Potassium ABG Glucose Oxyhemoglobin Carboxyhemoglobin Sodium Potassium Chloride Carbon Dioxide BUN Creatinine Glucose POC Glucose 118 H 128 H 129 H Calcium Ferritin Total Bilirubin Alkaline Phosphatase Lactate Dehydrogenase Total Creatine Kinase CK-MB (CK-2) Rel Index Troponin T C-Reactive Protein Total Protein Albumin Prealbumin LDL Cholesterol Direct HDL Cholesterol Arterial Blood Glucose Arterial Blood Ionized Calcium Urine WBC (Auto) 05/14/20 05/15/20 05/16/20 11:38 23:46 05:20 WBC RBC Hgb Hct MCV MCH RDW Plt Count Lymph % (Auto) [place] % (Auto) Eos % (Auto) Lymph # (Auto) [place] # (Auto) Eos # (Auto) Seg Neutrophils % Seg Neuts % (Manual) Lymphocytes % (Manual) Monocytes % (Manual) Basophils % (Manual) Seg Neutrophils # Seg Neutrophils # Man Lymphocytes # (Manual) Monocytes # (Manual) Eosinophils # (Manual) Basophils # (Manual) PT INR D-Dimer ABG pH POC ABG pCO2 POC ABG pO2 ABG pO2 ABG HCO3 ABG O2 Saturation ABG Base Excess ABG Hemoglobin ABG Oxyhemoglobin ABG Potassium ABG Glucose Oxyhemoglobin Carboxyhemoglobin Sodium Potassium Chloride Carbon Dioxide BUN Creatinine Glucose POC Glucose 134 H 107 H 122 H Calcium Ferritin Total Bilirubin Alkaline Phosphatase Lactate Dehydrogenase Total Creatine Kinase CK-MB (CK-2) Rel Index Troponin T C-Reactive Protein Total Protein Albumin Prealbumin LDL Cholesterol Direct HDL Cholesterol Arterial Blood Glucose Arterial Blood Ionized Calcium Urine WBC (Auto) 05/16/20 05/16/20 05/18/20 11:57 23:51 11:18 WBC RBC Hgb Hct MCV MCH RDW Plt Count Lymph % (Auto) [place] % (Auto) Eos % (Auto) Lymph # (Auto) [place] # (Auto) Eos # (Auto) Seg Neutrophils % Seg Neuts % (Manual) Lymphocytes % (Manual) Monocytes % (Manual) Basophils % (Manual) Seg Neutrophils # Seg Neutrophils # Man Lymphocytes # (Manual) Monocytes # (Manual) Eosinophils # (Manual) Basophils # (Manual) PT INR D-Dimer ABG pH POC ABG pCO2 POC ABG pO2 ABG pO2 ABG HCO3 ABG O2 Saturation ABG Base Excess ABG Hemoglobin ABG Oxyhemoglobin ABG Potassium ABG Glucose Oxyhemoglobin Carboxyhemoglobin Sodium Potassium Chloride Carbon Dioxide BUN Creatinine Glucose POC Glucose 108 H 111 H 115 H Calcium Ferritin Total Bilirubin Alkaline Phosphatase Lactate Dehydrogenase Total Creatine Kinase CK-MB (CK-2) Rel Index Troponin T C-Reactive Protein Total Protein Albumin Prealbumin LDL Cholesterol Direct HDL Cholesterol Arterial Blood Glucose Arterial Blood Ionized Calcium Urine WBC (Auto) 05/18/20 05/18/20 05/19/20 16:18 23:38 05:07 WBC RBC Hgb Hct MCV MCH RDW Plt Count Lymph % (Auto) [place] % (Auto) Eos % (Auto) Lymph # (Auto) [place] # (Auto) Eos # (Auto) Seg Neutrophils % Seg Neuts % (Manual) Lymphocytes % (Manual) Monocytes % (Manual) Basophils % (Manual) Seg Neutrophils # Seg Neutrophils # Man Lymphocytes # (Manual) Monocytes # (Manual) Eosinophils # (Manual) Basophils # (Manual) PT INR D-Dimer ABG pH POC ABG pCO2 POC ABG pO2 ABG pO2 ABG HCO3 ABG O2 Saturation ABG Base Excess ABG Hemoglobin ABG Oxyhemoglobin ABG Potassium ABG Glucose Oxyhemoglobin Carboxyhemoglobin Sodium Potassium Chloride Carbon Dioxide BUN Creatinine Glucose POC Glucose 110 H 128 H 121 H Calcium Ferritin Total Bilirubin Alkaline Phosphatase Lactate Dehydrogenase Total Creatine Kinase CK-MB (CK-2) Rel Index Troponin T C-Reactive Protein Total Protein Albumin Prealbumin LDL Cholesterol Direct HDL Cholesterol Arterial Blood Glucose Arterial Blood Ionized Calcium Urine WBC (Auto) 05/19/20 05/19/20 05/19/20 11:36 16:49 23:17 WBC RBC Hgb Hct MCV MCH RDW Plt Count Lymph % (Auto) [place] % (Auto) Eos % (Auto) Lymph # (Auto) [place] # (Auto) Eos # (Auto) Seg Neutrophils % Seg Neuts % (Manual) Lymphocytes % (Manual) Monocytes % (Manual) Basophils % (Manual) Seg Neutrophils # Seg Neutrophils # Man Lymphocytes # (Manual) Monocytes # (Manual) Eosinophils # (Manual) Basophils # (Manual) PT INR D-Dimer ABG pH POC ABG pCO2 POC ABG pO2 ABG pO2 ABG HCO3 ABG O2 Saturation ABG Base Excess ABG Hemoglobin ABG Oxyhemoglobin ABG Potassium ABG Glucose Oxyhemoglobin Carboxyhemoglobin Sodium Potassium Chloride Carbon Dioxide BUN Creatinine Glucose POC Glucose 120 H 110 H 122 H Calcium Ferritin Total Bilirubin Alkaline Phosphatase Lactate Dehydrogenase Total Creatine Kinase CK-MB (CK-2) Rel Index Troponin T C-Reactive Protein Total Protein Albumin Prealbumin LDL Cholesterol Direct HDL Cholesterol Arterial Blood Glucose Arterial Blood Ionized Calcium Urine WBC (Auto) 05/20/20 05/20/20 05/21/20 05:17 23:55 04:18 WBC RBC Hgb 11.2 L Hct 35.4 L MCV 81 L MCH 25 L RDW 18.2 H Plt Count 458 H Lymph % (Auto) [place] % (Auto) 8.8 H Eos % (Auto) 7.2 H Lymph # (Auto) [place] # (Auto) Eos # (Auto) 0.6 H Seg Neutrophils % Seg Neuts % (Manual) Lymphocytes % (Manual) Monocytes % (Manual) Basophils % (Manual) Seg Neutrophils # Seg Neutrophils # Man Lymphocytes # (Manual) Monocytes # (Manual) Eosinophils # (Manual) Basophils # (Manual) PT INR D-Dimer ABG pH POC ABG pCO2 POC ABG pO2 ABG pO2 ABG HCO3 ABG O2 Saturation ABG Base Excess ABG Hemoglobin ABG Oxyhemoglobin ABG Potassium ABG Glucose Oxyhemoglobin Carboxyhemoglobin Sodium Potassium Chloride Carbon Dioxide BUN Creatinine Glucose POC Glucose 133 H 128 H Calcium Ferritin Total Bilirubin Alkaline Phosphatase Lactate Dehydrogenase Total Creatine Kinase CK-MB (CK-2) Rel Index Troponin T C-Reactive Protein Total Protein Albumin Prealbumin LDL Cholesterol Direct HDL Cholesterol Arterial Blood Glucose Arterial Blood Ionized Calcium Urine WBC (Auto) 05/21/20 05/21/20 05/21/20 04:18 05:02 23:53 WBC RBC Hgb Hct MCV MCH RDW Plt Count Lymph % (Auto) [place] % (Auto) Eos % (Auto) Lymph # (Auto) [place] # (Auto) Eos # (Auto) Seg Neutrophils % Seg Neuts % (Manual) Lymphocytes % (Manual) Monocytes % (Manual) Basophils % (Manual) Seg Neutrophils # Seg Neutrophils # Man Lymphocytes # (Manual) Monocytes # (Manual) Eosinophils # (Manual) Basophils # (Manual) PT INR D-Dimer ABG pH POC ABG pCO2 POC ABG pO2 ABG pO2 ABG HCO3 ABG O2 Saturation ABG Base Excess ABG Hemoglobin ABG Oxyhemoglobin ABG Potassium ABG Glucose Oxyhemoglobin Carboxyhemoglobin Sodium Potassium Chloride 97.2 L Carbon Dioxide 35 H BUN Creatinine < 0.2 L Glucose 128 H POC Glucose 125 H 114 H Calcium Ferritin Total Bilirubin Alkaline Phosphatase Lactate Dehydrogenase Total Creatine Kinase CK-MB (CK-2) Rel Index Troponin T C-Reactive Protein Total Protein Albumin Prealbumin LDL Cholesterol Direct HDL Cholesterol Arterial Blood Glucose Arterial Blood Ionized Calcium Urine WBC (Auto) 05/22/20 05/22/20 05/23/20 05:21 11:35 00:06 WBC RBC Hgb Hct MCV MCH RDW Plt Count Lymph % (Auto) [place] % (Auto) Eos % (Auto) Lymph # (Auto) [place] # (Auto) Eos # (Auto) Seg Neutrophils % Seg Neuts % (Manual) Lymphocytes % (Manual) Monocytes % (Manual) Basophils % (Manual) Seg Neutrophils # Seg Neutrophils # Man Lymphocytes # (Manual) Monocytes # (Manual) Eosinophils # (Manual) Basophils # (Manual) PT INR D-Dimer ABG pH POC ABG pCO2 POC ABG pO2 ABG pO2 ABG HCO3 ABG O2 Saturation ABG Base Excess ABG Hemoglobin ABG Oxyhemoglobin ABG Potassium ABG Glucose Oxyhemoglobin Carboxyhemoglobin Sodium Potassium Chloride Carbon Dioxide BUN Creatinine Glucose POC Glucose 127 H 114 H 115 H Calcium Ferritin Total Bilirubin Alkaline Phosphatase Lactate Dehydrogenase Total Creatine Kinase CK-MB (CK-2) Rel Index Troponin T C-Reactive Protein Total Protein Albumin Prealbumin LDL Cholesterol Direct HDL Cholesterol Arterial Blood Glucose Arterial Blood Ionized Calcium Urine WBC (Auto) 05/23/20 05/23/20 05/23/20 05:44 12:07 17:59 WBC RBC Hgb Hct MCV MCH RDW Plt Count Lymph % (Auto) [place] % (Auto) Eos % (Auto) Lymph # (Auto) [place] # (Auto) Eos # (Auto) Seg Neutrophils % Seg Neuts % (Manual) Lymphocytes % (Manual) Monocytes % (Manual) Basophils % (Manual) Seg Neutrophils # Seg Neutrophils # Man Lymphocytes # (Manual) Monocytes # (Manual) Eosinophils # (Manual) Basophils # (Manual) PT INR D-Dimer ABG pH POC ABG pCO2 POC ABG pO2 ABG pO2 ABG HCO3 ABG O2 Saturation ABG Base Excess ABG Hemoglobin ABG Oxyhemoglobin ABG Potassium ABG Glucose Oxyhemoglobin Carboxyhemoglobin Sodium Potassium Chloride Carbon Dioxide BUN Creatinine Glucose POC Glucose 110 H 128 H 125 H Calcium Ferritin Total Bilirubin Alkaline Phosphatase Lactate Dehydrogenase Total Creatine Kinase CK-MB (CK-2) Rel Index Troponin T C-Reactive Protein Total Protein Albumin Prealbumin LDL Cholesterol Direct HDL Cholesterol Arterial Blood Glucose Arterial Blood Ionized Calcium Urine WBC (Auto) Allied health notes reviewed: nursing
[2020-05-24] MEDS: diphenhydrAMINE 25 MG CAP PO PRN ×2 (00:31→09:47)
[2020-05-24] MEDS: MORPHINE 2 MG/1 ML INJ IV PRN ×2 (05:54→10:05)
[2020-05-24] MEDS: BACLOFEN 10 MG TAB PO SCH ×2 (09:40→21:02)
[2020-05-24] MEDS: GLYCOPYRROLATE 1 MG TAB PO SCH ×3 (09:40→20:43)
[2020-05-24] MEDS: TAMSULOSIN 0.4 MG CAP PO SCH (09:40)
[2020-05-24] MEDS: LIDOCAINE 5% 1 EACH PATCH TD SCH (09:40)
[2020-05-24] MEDS: LANSOPRAZOLE 30 MG SOLUTAB FEEDTUBE SCH (09:41)
[2020-05-24] MEDS: PREGABALIN 75 MG CAP PO SCH ×2 (09:41→21:02)
[2020-05-24] MEDS: ASPIRIN EC 81 MG TAB PO SCH (09:41)
[2020-05-24] MEDS: DOCUSATE SODIUM 100 MG/10 ML ORAL LIQD FEEDTUBE SCH ×2 (09:41→21:02)
[2020-05-24] MEDS: METOPROLOL TARTRATE 25 MG TAB PO SCH ×2 (09:41→21:02)
[2020-05-24] MEDS: ALPRAZolam 0.5 MG TAB PO PRN ×2 (09:47→21:02)
--- NOTE | 2020-05-24 11:41 | Progress Note ---
Assessment and Plan --Acute hypoxic hypercapnic respiratory failure; Intubated on mechanical ventilation. Etiology secondary to sepsis, ALS, multifocal pneumonia (Covid negative). S/p trach placement 03/07/20 --Status post cardiac arrest on 02/25, cardiac hernandez now stable --Dysphagia, status post PEG placement for tube feeding --ALS; Chronic Continue to provide supportive care --Elevated D-dimers; CTA chest, lower extremity venous Doppler both are negative Lovenox for DVT prophylaxis --Bilateral pneumonia; probably community-acquired Completed treatment ID recommendations appreciated --Sepsis secondary to pneumonia s/p empiric antibiotic --Elevated troponin; Serial cardiac enzymes, serial EKGs Echocardiogram, cardiology consult if needed --Hypernatremia Trend sodium Free water via feeding tube --Abdominal distention due to bladder outlet obstruction, resolved CT abdomen showed bladder outlet obstruction, urology consulted s/p drake placement by urology on 03/09 --Hypotension possibly from septic shock and bladder outlet obstruction improved following placing drake --Hypernatremia due to hypovolumia, resolved free water with TF --Constipation; Patient already received Dulcolax suppository and Colace Received milk of magnesia, with relief --DVT prophylaxis; Lovenox Brief history: 59-year-old male patient with significant past medical history of ALS, presented to ED with worsening shortness of breath since the morning [employer]ACHINE [employer]. Patient was on a trilogy machine for breathing 18/11. EMS arrived, patient had O2 sats in the 80s. EMS attempted to place patient on their CPAP machine, however patient did not tolerate. Patient was admitted to the ICU with diagnosis of acute hypoxic respiratory failure and placed on BiPAP. Patient initially tolerated but later deteriorated with respiratory status. CTA chest showed no PE but significant for bilateral pneumonia. Doppler ultrasound also negative for DVT. COVID-19 test ordered and negative. Due to persistent hypoxia and asystolic/V. fib cardiac arrest, patient was intubated on 02/26/2020 at 1500. Patient now on mechanical ventilation in the ICU s/p trach placement and now unable to wean off from the mechanical ventilation. Patient now status post PEG placement for tube feeding. Patient most likely need long-term placement -LTAC versus SNF Daily course: 02/25/2020. CTA of the chest reveals no PE but does illustrate the bilateral pneumonia. Doppler ultrasound also negative for DVT. Blood cultures are pe nding. Await COVID-19 testing. Patient currently requiring BiPAP IPAP 24/EPAP 6 with FiO2 of 25%. Continue O2 and BiPAP as clinically indicated. ID and pulmonary consulted. 02/26/2020. Blood cultures are negative x48 hours and Covid testing negative as well. Continue antibiotics per ID recommendations for community-acquired bilateral pneumonia. Cardiology consultation for elevated troponin. Check echocardiogram. 02/27/2020. Events of yesterday noted with asystole following V. fib arrest. Patient currently on AC mode rate 20, tidal volume 400, FiO2 50% and a PEEP of 6. Follow-up echocardiogram for elevated troponin. Cardiology suspects NSTEMI Type 2 in the setting of acute resp failure. Chest CTA and BLE Dopplers neg. we will discontinue Decadron given the Covid PCR is negative. 02/28/2020. I spoke with the sister Felisa Eli who is the power of patent attorney regarding advanced directives and she instructed me that she would like to continue with aggressive care at this time. I informed her of the guarded prognosis and high mortality/morbidity and she voiced understanding. Patient currently with AC mode ventilation rate 18, tidal volume 400, FiO2 40% and a PEEP of 6. Continue antibiotics for pneumonia. ID previously consulted. Also consult neurology with regards to ALS. 02/29/2020; patient is intubated and on CPAP patient is alert and oriented. Patient has ALS. Dr. Álvarez spoke with his sister and she wants aggressive care. Continue antibiotics for pneumonia. Neurology consulted for ALS. Prognosis poor 03/01/2020; patient is intubated and on CPAP, patient is alert and oriented. I spoke with his 2 sisters about the management plan. 03/02/2020; patient is intubated and on CPAP. Patient was alert and oriented. I spoke with Dr. mohr and he thinks patient may need mechanical ventilation, likely his disease progressed. Dr. Flowers did debridement this morning. 03/03/2020; patient is intubated and on CPAP, patient was on trilogy and BiPAP at home. Patient has ALS. on spontaneous breathing trial. Patient is alert and oriented but quadriplegic. Patient has severe bilateral pneumonia and is on cefepime and Vanco, ID is following. Patient has sacral decubitus ulcer and debridement was done by Dr. Flowers and there is no osteomyelitis. 03/05. Patient still on broad-spectrum antibiotics. Status post sacral decubitus ulcer debridements-no osteomyelitis. Patient is on AC 25/400/30% PEEP 5. No blood gas results today. 03/06. Plan for tracheostomy by surgery. Still remains intubated. Labs reviewed-sodium 150. Started on free water 200 every 8hr. trend sodium. 03/07: s/p trach placement today, patient placed back on mechanical ventilation with trach. Plan to resume tube feeding with NG tube. Continue to monitor vitals, monitor BMP. 03/08: Patient noted to have distended abdomen with low urinary output. Obtain bladder scan rule out urine retention, UA and urine culture, continue to follow clinically. 03/09: Patient noted to have low blood pressure with SBP as low as 70s. Ordered for 500 mils normal saline bolus. CT abdomen showed bladder outlet obstruction, urology consulted. 03/10: placed on drake by urology o/n, improved urine outpt. cont to monitor BMP. resuded TF - cont free water with TF. wean off from vent as tolerated. 03/11: Vitals stable. cont TF, wean off from vent as tolerated. start on 1/2 NS for hypernatremia - follow BMP 03/12: wean off vent as tolerated, plan for speech eval, cont Tf for now, cont iv fluid 03/13: unable to wean off from vent, unable to do speech therapy eval. will need PEG tube, cont supportive care for now, cont NG tube feeding 03/14: consulted GI for PEg placemnet, cont supportive care. remains on vent at night 03/15: Discussed with GI, plan for PEG tube placement possibly tomorrow. Continue supportive care and wean off from vent as tolerated. Hold Lovenox dose tonight. 03/16: family didnot consent for PEG placement yesterday. I spoke with the megan rodriguez today and she is now agreeable for PEG tube. I explained the necessity of the procedure with RN to the patient also and he nodded started on tube feeding, for the procedure. will cont supportive care. planned for PEG tube placement tomorrow. 03/17: s/p PEG placement today, patient tolerated well, cont supportive care 03/18: Started on tube feeding with new PEG tube, continue to wean off vent as tolerated 03/19: cont to monitor with supportive care, wean off vent as tolerated 03/20: Continue to wean off vent as tolerated -but failing weaning trial. Still requiring vent support at night. Currently on PEG tube for tube feed. 03/21. Pt with PSV trials with FiO@ 30%, PEEP 6, PS 10. Currently on PEG tube for tube feed. 03/22/2020. Continue PSV trials per pulmonary. Continue bronchodilators. Patient tolerating tube feedings. Continue Robinul for secretion control. 03/23/2020. Continue PSV trials per pulmonary. Continue bronchodilators. Continue Scopolamine and Robinul for secretion control. Trach care/airway management. Mobility protocols for pressure ulcer prophylaxis. LTAC evaluation per case management 03/24/2020. Continue PSV trials with current settings pressure support 10, PEEP 6 and FiO2 30%. Continue bronchodilators/nebulizer. Continue Scopolamine and Robinul for secretion control. Trach care/airway management. Mobility protocols for pressure ulcer prophylaxis. LTAC evaluation per case management 03/25/2020. Pulmonary to proceed with T-piece trials today. Continue bronchodilators/nebulizer. Continue Scopolamine and Robinul for secretion control. Trach care/airway management. Mobility protocols for pressure ulcer prophylaxis. 03/26/2020. Patient currently with PSV 10/6 at FiO2 of 30%. Continue weaning and T-piece trials per protocol. Continue bronchodilators/nebulizer. Continue Scopolamine and Robinul for secretion control. Trach care/airway management. Mobility protocols for pressure ulcer prophylaxis. Continue tube feeding with aspiration precautions. 03/27/2020. Patient currently with PSV 10/6 at FiO2 of 30%. Continue weaning and T-piece trials per protocol. Continue bronchodilators/nebulizer. Continue Scopolamine and Robinul for secretion control. Trach care/airway management. Mobility protocols for pressure ulcer prophylaxis. Continue tube feeding with aspiration precautions. 03/28. Had temp 100.7F. He has been off antibiotics. Will send blood culture, ua, urine culture and chest xray. Had chest pain overnight and trop was elevated as well. Cardiology to evaluate 03/29. Has back pain due to position. He mentions his chest pain is positional. Has no other complaints. Still on mechanical ventilation 03/30. No chest pain today. Labs reviewed. Discussed chest pain with cardiology and team advised no further work up at this time. Can follow up with cardiology in the office after hospitalization 03/31. Lidocaine patch for lower back pain. 04/01. Discharge planning underway. CM notes reviewed. Discussed with daughter 04/02. CM trying to arrange discharge. Continue PSV trials. Discussed with patients significant other 04/04/2020; CM is working for discharge arrangement. Continue PSV trials. 04/05/2020; patient was seen and evaluated this morning and no change from baseline. Continue with PSV trials. Follow with fashion supervisor for discharge planning. 04/06/2020;patient was seen and evaluated this morning and no change from baseline. Continue with PSV trials. Follow with fashion supervisor for discharge planning. 04/07/2020; patient was seen and evaluated this morning and no change from baseline. Continue with PSV trials. Follow with fashion supervisor for discharge planning. 04/08/2020; patient is vent dependent. Discharge is per fashion supervisor. 04/09/2020 patient is vent dependent, possible LTAC placement 04/10/2020; tracheostomy on vent, vent dependent pending LTAC placement 04/11/2020; clinically no change, tracheostomy on ventilatory support, wean as tolerated, awaiting placement 04/12/2020; remains on ventilatory support, unable to wean, patient wants to see a speech therapist for sound box However we cannot try that as long as he is on ventilatory support, once he is weaned off vent We will consult speech therapist, plan of care reviewed with the patient and his nurse 04/14/2020; clinically no change, on ventilatory support, complains of constipation, milk of magnesia Closely monitor the patient and adjust the management as needed 04/15/2020; patient has some oral thrush on the tongue, will give Magic mouthwash/nystatin swish and spit Wean off vent as tolerated 04/16 patient is alert and oriented, unable to comprehend what he is trying to tell but appears to complain of some pain, no acute events overnight, all interdisciplinary notes reviewed. Waiting for LTAC versus intermediate facility placement 04/17/2020. Continue supportive care with mechanical ventilation. Patient currently on AC mode rate 10, tidal volume 400 FiO2 30% with a PEEP of 6. Discharge planning per case management. 04/18/2020. Patient remains on mechanical ventilation AC mode rate 10, tidal volume 400, FiO2 30% and PEEP of 6. Continue spontaneous breathing trials as tolerated. Previously, patient was considered for discharge home with skilled staff providing care for 12 hours 7 days/week. Continue discussed with case management discharge planning. 04/19/20. Patient remains on mechanical ventilation AC mode rate 10, tidal volume 400, FiO2 30% and PEEP of 6. Continue spontaneous breathing trials as tolerated. 04/20/2020. Patient remains on mechanical ventilation AC mode rate 10, tidal volume 400, FiO2 30% and PEEP of 6. Continue spontaneous breathing trials as tolerated. 04/21/2020. Patient remains on mechanical ventilation AC mode rate 10, tidal volume 400, FiO2 30% and PEEP of 6. Continue tracheostomy care, secretion control and airway management. Continue spontaneous breathing trials as tolerated. 04/22/2020. Patient remains on mechanical ventilation AC mode rate 10, tidal volume 400, FiO2 30% and PEEP of 6. Continue tracheostomy care, secretion control and airway management. Continue spontaneous breathing trials as tolera milana. 04/23/2020. Patient on mechanical ventilation AC mode rate 18, tidal volume 450, FiO2 30% and PEEP of 6. Continue tracheostomy care, secretion control and airway management. Continue spontaneous breathing trials as tolerated. Continue Robinul and scopolamine for secretions. Continue baclofen. 04/24/2020. Patient remains on AC mode ventilation rate 10, tidal volume 400, FiO2 30% and PEEP of 6. Continue tracheostomy care, secretion control and airway management. Continue spontaneous breathing trials as tolerated. Continue Robinul and scopolamine for secretions. Continue baclofen. Continue Xanax for anxiety and Ambien for sleep. Await case management follow-up with regards to discharge planning. 04/25/2020. Patient remains on AC mode ventilation rate 10, tidal volume 400, FiO2 30% and PEEP of 6. Continue tracheostomy care, secretion control and airway management. Continue spontaneous breathing trials as tolerated. Continue Robinul and scopolamine for secretions. Continue baclofen. Continue Xanax for anxiety and Ambien for sleep. Await case management follow-up with regards to discharge planning. 04/26. Patient remains on AC mode ventilation rate 10, tidal volume 400, FiO2 30% and PEEP of 6. Continue tracheostomy care, secretion control and airway management. Continue spontaneous breathing trials as tolerated. Continue Robinul and scopolamine for secretions. Continue baclofen. Continue Xanax for anxiety and Ambien for sleep. Await case management follow-up with regards to discharge planning. 04/27. Patient remains on AC mode ventilation rate 10, tidal volume 400, FiO2 30% and PEEP of 6. Continue tracheostomy care, secretion control and airway management. Continue spontaneous breathing trials as tolerated. Continue Robinul and scopolamine for secretions. Continue baclofen. Continue Xanax for anxiety and Ambien for sleep. Await case management follow-up with regards to discharge planning. 04/28/20 no acute events overnight, remains vent dependent, cardiology and pulmonary notes reviewed 04/29 remains intubated via tracheostomy, no acute events 04/30 no acute events overnight, cardiology note reviewed, remains vent dependent, discharge planning per case management 05/01 stable. cardiology and pulmonary notes reviewed. D/C acu-checks 05/02 - todate: Clinically stable, CM working on placement. Continue supportive care. Subjective Date of service: 05/24/20 Principal diagnosis: Ac on Ch Hypercapnic & hypoxemic Resp Failure; Severe Sepsis; Jamar PNA; ALS Interval history: Patient seen and examined Remains on trach tube Discussed with RN at the bedside Vitals reviewed -BP stable Tolerating tube feeding with PEG tube Objective - Exam Narrative Exam: GENERAL: Awake. Intubated with trach tube HEAD: No signs of head trauma. EYES: Pupils are equal. Extraocular motions intact. EARS: Hearing grossly intact. MOUTH: Oropharynx is normal. NECK: No adenopathy, no JVD. CHEST: Coarse breath sounds bilaterally CARDIAC: Regular rate and rhythm. S1 and S2, without murmurs, gallops, or rubs. VASCULAR: No Edema. Peripheral pulses normal and equal in all extremities. ABDOMEN: Soft, non tender and nondistended. Bowel Sounds normal. PEG in place NEUROLOGIC EXAM: Awake, paraplegic SKIN: No obvious lesions - Constitutional Vitals: Vital Signs - 12hr 05/24/20 05/24/20 05/24/20 00:00 01:00 01:02 Temperature 98.3 F Pulse Rate 103 H 108 H 99 H Respiratory 24 23 Rate Blood Pressure 106/68 105/59 105/59 O2 Sat by Pulse 99 97 99 Oximetry O2 Sat by Pulse Oximetry [ Assessment] 05/24/20 05/24/20 05/24/20 02:00 03:01 03:39 Temperature 99.0 F Pulse Rate 97 H 104 H Respiratory 20 21 Rate Blood Pressure 99/59 106/67 O2 Sat by Pulse 98 100 Oximetry O2 Sat by Pulse Oximetry [ Assessment] 05/24/20 05/24/20 05/24/20 04:00 05:00 05:54 Temperature Pulse Rate 102 H 101 H Respiratory 23 23 18 Rate Blood Pressure 103/73 114/67 O2 Sat by Pulse 97 96 Oximetry O2 Sat by Pulse Oximetry [ Assessment] 05/24/20 05/24/20 05/24/20 06:01 08:00 08:39 Temperature 98.2 F Pulse Rate 117 H 110 H Respiratory 25 H Rate Blood Pressure 123/75 117/78 O2 Sat by Pulse 97 100 Oximetry O2 Sat by Pulse 100 Oximetry [ Assessment] 05/24/20 09:41 Temperature Pulse Rate 107 H Respiratory Rate Blood Pressure 116/80 O2 Sat by Pulse Oximetry O2 Sat by Pulse Oximetry [ Assessment] - Labs CBC & Chem 7: 05/21/20 04:18 05/21/20 04:18 Labs: Abnormal lab results 05/23/20 05/23/20 05/24/20 Range/Units 12:07 17:59 05:09 POC Glucose 128 H 125 H 115 H (70-105) mg/dL HEART Score - HEART Score Troponin: Troponin T 0.181 ng/mL (0.00-0.029) H* 04/24/20 05:28
--- NOTE | 2020-05-24 13:55 | Progress Note ---
Assessment and Plan Patient Awake . Patient is resting on pressure support mechanical ventilation, Pressure support 10, FIO2 30%, PEEP 6 and O2 saturation running 98%. Recommend Continue spontaneous breathing trials as tolerated.Respiratory therapy told me, Patient resisting to go on T tube trial ' Recommend to decrease pressure support to 5.Patient afebrile and has no leukocytosis. Chest xray done 05/02/20 reported Interval worsening of right lung base opacity now appears to be pleural parenchymal. This may be a worsened infectious process or development of right-sided pleural effusion and worsened right lung base atelectasis. Left lung base opacity is stable. Tracheostomy in stable position. Patient right lung base infiltrate reported intervel worsening, patient has no leukocytosis, recommend to place him antibiotic like zosyn. Repeat chest xray 05/11/20 reported Mild interval improvement in the hazy opacity at the right lung base as described. I suspect this represents an improving atelectasis over effusion. - Patient Problems (1) Acute on chronic respiratory failure with hypoxia and hypercapnia Current Visit: Yes Status: Acute Plan to address problem: Patient is resting on pressure support 10, FIO2 30%, PEEP 6. Albuterol inhaler 2 puffs po qid. Continue S/C Lovenox. Continue prevacid. continue spontaneous breathing trials and wean him to Trach collar.. (2) Bleeding from wound Current Visit: Yes Status: Acute Plan to address problem: Management primary care , surgery and wound care. (3) Elevated d-dimer Current Visit: Yes Status: Acute Plan to address problem: Patients venous doppler studies of legs, CTA chest reported Negative for VTE. Patient is on S/C Lovenox 40 mg qd. (4) Elevated troponin Current Visit: Yes Status: Acute Plan to address problem: Management as per primary care and cardiology (5) NSTEMI (non-ST elevated myocardial infarction) Current Visit: Yes Status: Acute Plan to address problem: Management as per cardiology. (6) Pneumonia Current Visit: Yes Status: Acute Qualifiers: Laterality: bilateral Plan to address problem: Patient afebrile . Has mild leukocytosis. Repeat Chest xray done 05/02/20 reported Interval worsening of right lung base opacity now appears to be pleural parenchymal. This may be a worsened infectious process or development of right-sided pleural effusion and worsened right lung base atelectasis. Left lung base opacity is stable. Tracheostomy in stable position. Patient right lung base infiltrate reported intervel worsening, patient has no leukocytosis, recommend to place him antibiotic like zosyn. Repeating chest xray and ABGs. Repeat chest xray 05/11/20 reported Mild interval improvement in the hazy opacity at the right lung base as described. I suspect this represents an improving atelectasis over effusion. Subjective Date of service: 05/24/20 Principal diagnosis: Ac on Ch Hypercapnic & hypoxemic Resp Failure; Severe Sepsis; Jamar PNA; ALS Interval history: Patient Awake . Patient is resting on pressure support mechanical ventilation, Pressure support 10, FIO2 30%, PEEP 6 and O2 saturation running 98%. Recommend Continue spontaneous breathing trials as tolerated.Respiratory therapy told me, Patient resisting to go on T tube trial ' Recommend to decrease pressure support to 5.Patient afebrile and has no leukocytosis. Chest xray done 05/02/20 reported Interval worsening of right lung base opacity now appears to be pleural parenchymal. This may be a worsened infectious process or development of right-sided pleural effusion and worsened right lung base atelectasis. Left lung base opacity is stable. Tracheostomy in stable position. Patient right lung base infiltrate reported intervel worsening, patient has no leukocytosis, recommend to place him antibiotic like zosyn. Repeat chest xray 05/11/20 reported Mild interval improvement in the hazy opacity at the right lung base as described. I suspect this represents an improving atelectasis over effusion. Objective Vital Signs - 12hr 05/24/20 05/24/20 05/24/20 02:00 03:01 03:39 Temperature 99.0 F Pulse Rate 97 H 104 H Respiratory 20 21 Rate Blood Pressure 99/59 106/67 O2 Sat by Pulse 98 100 Oximetry O2 Sat by Pulse Oximetry [ Assessment] 05/24/20 05/24/20 05/24/20 04:00 05:00 05:54 Temperature Pulse Rate 102 H 101 H Respiratory 23 23 18 Rate Blood Pressure 103/73 114/67 O2 Sat by Pulse 97 96 Oximetry O2 Sat by Pulse Oximetry [ Assessment] 05/24/20 05/24/20 05/24/20 06:01 08:00 08:39 Temperature 98.2 F Pulse Rate 117 H 110 H Respiratory 25 H Rate Blood Pressure 123/75 117/78 O2 Sat by Pulse 97 100 Oximetry O2 Sat by Pulse 100 Oximetry [ Assessment] 05/24/20 05/24/20 05/24/20 09:41 12:00 12:15 Temperature 98.4 F Pulse Rate 107 H 94 H Respiratory 18 Rate Blood Pressure 116/80 119/76 O2 Sat by Pulse 98 Oximetry O2 Sat by Pulse Oximetry [ Assessment] Constitutional: no acute distress, alert, other (thin middle aged male resting on pressure support ventilation.) Eyes: non-icteric ENT: oropharynx moist, other (S/P Tracheostomy) Neck: supple, no lymphadenopathy, no JVD Effort: mildly labored Ascultation: Bilateral: diminished breath sounds, wheezes, rhonchi (scant in bases) Percussion: Bilateral: not dull Cardiovascular: regular rate and rhythm, other (S1,S2, no murmurs) Gastrointestinal: normoactive bowel sounds, soft, non-tender, non-distended Integumentary: normal, decubitus ulcer (sacral / gluteal) Extremities: no cyanosis, no edema, pulses normal, other (atrophic looking limbs) Neurologic: pupils equal and round, other (motor strength in extremities 1-2/5, awake, alert, mouths words to make needs known) Psychiatric: depressed CBC and BMP: 05/21/20 04:18 05/21/20 04:18 ABG, PT/INR, D-dimer: ABG ABG pH 7.371 (7.320-7.450) 03/08/20 12:34 POC ABG pCO2 63.1 mmHg (32.0-48.0) H 03/08/20 12:34 ABG pCO2 60.1 mm Hg 03/06/20 04:34 POC ABG pO2 90.5 mmHg (83-108) 03/08/20 12:34 ABG pO2 88.6 mm Hg (80.0-90.0) 03/06/20 04:34 POC ABG HCO3 35.7 03/08/20 12:34 ABG O2 Saturation 97.0 % (95.0-99.0) 03/06/20 04:34 PT/INR, D-dimer PT 15.6 Sec. (12.2-14.9) H 02/24/20 09:19 INR 1.21 (0.87-1.13) H 02/24/20 09:19 D-Dimer 1311.96 ng/mlDDU (0-234) H 02/24/20 09:19 Abnormal lab findings: Abnormal Labs 02/24/20 02/24/20 02/24/20 09:19 09:19 09:19 WBC 20.2 H RBC 5.05 H Hgb Hct MCV MCH RDW 15.3 H Plt Count Lymph % (Auto) [place] % (Auto) Eos % (Auto) Lymph # (Auto) [place] # (Auto) Eos # (Auto) Seg Neutrophils % Seg Neuts % (Manual) 86.0 H Lymphocytes % (Manual) 1.0 L Monocytes % (Manual) Basophils % (Manual) Seg Neutrophils # Seg Neutrophils # Man 17.4 H Lymphocytes # (Manual) 0.2 L Monocytes # (Manual) Eosinophils # (Manual) Basophils # (Manual) PT 15.6 H INR 1.21 H D-Dimer 1311.96 H ABG pH POC ABG pCO2 POC ABG pO2 ABG pO2 ABG HCO3 ABG O2 Saturation ABG Base Excess ABG Hemoglobin ABG Oxyhemoglobin ABG Potassium ABG Glucose Oxyhemoglobin Carboxyhemoglobin Sodium 135 L Potassium 3.2 L Chloride 92.2 L Carbon Dioxide BUN 6 L Creatinine < 0.2 L Glucose 124 H POC Glucose Calcium Ferritin Total Bilirubin 2.30 H Alkaline Phosphatase 132 H Lactate Dehydrogenase Total Creatine Kinase CK-MB (CK-2) Rel Index Troponin T 0.080 H C-Reactive Protein Total Protein Albumin 3.6 L Prealbumin LDL Cholesterol Direct 41 L HDL Cholesterol Arterial Blood Glucose Arterial Blood Ionized Calcium Urine WBC (Auto) 02/24/20 02/24/20 02/24/20 09:19 09:58 10:01 WBC RBC Hgb Hct MCV MCH RDW Plt Count Lymph % (Auto) [place] % (Auto) Eos % (Auto) Lymph # (Auto) [place] # (Auto) Eos # (Auto) Seg Neutrophils % Seg Neuts % (Manual) Lymphocytes % (Manual) Monocytes % (Manual) Basophils % (Manual) Seg Neutrophils # Seg Neutrophils # Man Lymphocytes # (Manual) Monocytes # (Manual) Eosinophils # (Manual) Basophils # (Manual) PT INR D-Dimer ABG pH 7.176 L* POC ABG pCO2 POC ABG pO2 ABG pO2 91.2 H ABG HCO3 ABG O2 Saturation ABG Base Excess -4.6 L ABG Hemoglobin ABG Oxyhemoglobin ABG Potassium ABG Glucose Oxyhemoglobin 92.6 L Carboxyhemoglobin Sodium Potassium Chloride Carbon Dioxide BUN Creatinine Glucose POC Glucose Calcium Ferritin 1715.0 H Total Bilirubin Alkaline Phosphatase Lactate Dehydrogenase 303 H Total Creatine Kinase CK-MB (CK-2) Rel Index Troponin T C-Reactive Protein 26.10 H Total Protein Albumin Prealbumin LDL Cholesterol Direct HDL Cholesterol Arterial Blood Glucose Arterial Blood Ionized Calcium Urine WBC (Auto) 02/24/20 02/24/20 02/24/20 11:52 13:45 19:35 WBC RBC Hgb Hct MCV MCH RDW Plt Count Lymph % (Auto) [place] % (Auto) Eos % (Auto) Lymph # (Auto) [place] # (Auto) Eos # (Auto) Seg Neutrophils % Seg Neuts % (Manual) Lymphocytes % (Manual) Monocytes % (Manual) Basophils % (Manual) Seg Neutrophils # Seg Neutrophils # Man Lymphocytes # (Manual) Monocytes # (Manual) Eosinophils # (Manual) Basophils # (Manual) PT INR D-Dimer ABG pH 7.051 L* 7.300 L POC ABG pCO2 POC ABG pO2 ABG pO2 94.7 H 75.1 L ABG HCO3 18.0 L ABG O2 Saturation 93.5 L ABG Base Excess -6.8 L -7.8 L ABG Hemoglobin 13.2 L 11.9 L ABG Oxyhemoglobin ABG Potassium ABG Glucose Oxyhemoglobin 91.0 L 92.7 L Carboxyhemoglobin Sodium Potassium Chloride Carbon Dioxide BUN Creatinine Glucose POC Glucose Calcium Ferritin Total Bilirubin Alkaline Phosphatase Lactate Dehydrogenase Total Creatine Kinase CK-MB (CK-2) Rel Index Troponin T 0.034 H D C-Reactive Protein Total Protein Albumin Prealbumin LDL Cholesterol Direct HDL Cholesterol Arterial Blood Glucose Arterial Blood Ionized Calcium Urine WBC (Auto) 02/25/20 02/25/20 02/25/20 04:00 04:00 12:26 WBC 22.9 H RBC Hgb Hct MCV 83 L MCH 27 L RDW Plt Count 468 H Lymph % (Auto) [place] % (Auto) Eos % (Auto) Lymph # (Auto) [place] # (Auto) Eos # (Auto) Seg Neutrophils % Seg Neuts % (Manual) 89.0 H Lymphocytes % (Manual) 7.0 L Monocytes % (Manual) Basophils % (Manual) Seg Neutrophils # Seg Neutrophils # Man 20.4 H Lymphocytes # (Manual) Monocytes # (Manual) Eosinophils # (Manual) Basophils # (Manual) PT INR D-Dimer ABG pH POC ABG pCO2 POC ABG pO2 ABG pO2 ABG HCO3 ABG O2 Saturation ABG Base Excess ABG Hemoglobin ABG Oxyhemoglobin ABG Potassium 2.6 L ABG Glucose 142 H Oxyhemoglobin Carboxyhemoglobin Sodium Potassium 3.2 L Chloride Carbon Dioxide 18 L BUN Creatinine 0.2 L Glucose 114 H POC Glucose Calcium Ferritin Total Bilirubin Alkaline Phosphatase Lactate Dehydrogenase Total Creatine Kinase CK-MB (CK-2) Rel Index Troponin T C-Reactive Protein Total Protein Albumin 3.5 L Prealbumin LDL Cholesterol Direct HDL Cholesterol Arterial Blood Glucose 142 H Arterial Blood Ionized Calcium Urine WBC (Auto) 02/26/20 02/26/20 02/26/20 15:58 17:00 23:43 WBC RBC Hgb Hct MCV MCH RDW Plt Count Lymph % (Auto) [place] % (Auto) Eos % (Auto) Lymph # (Auto) [place] # (Auto) Eos # (Auto) Seg Neutrophils % Seg Neuts % (Manual) Lymphocytes % (Manual) Monocytes % (Manual) Basophils % (Manual) Seg Neutrophils # Seg Neutrophils # Man Lymphocytes # (Manual) Monocytes # (Manual) Eosinophils # (Manual) Basophils # (Manual) PT INR D-Dimer ABG pH 7.502 H POC ABG pCO2 POC ABG pO2 213.6 H ABG pO2 ABG HCO3 ABG O2 Saturation ABG Base Excess ABG Hemoglobin ABG Oxyhemoglobin 99.2 H ABG Potassium 2.9 L ABG Glucose 160 H Oxyhemoglobin Carboxyhemoglobin 0.4 L Sodium Potassium Chloride Carbon Dioxide BUN Creatinine Glucose POC Glucose 189 H 120 H Calcium Ferritin Total Bilirubin Alkaline Phosphatase Lactate Dehydrogenase Total Creatine Kinase CK-MB (CK-2) Rel Index Troponin T C-Reactive Protein Total Protein Albumin Prealbumin LDL Cholesterol Direct HDL Cholesterol Arterial Blood Glucose 160 H Arterial Blood Ionized Calcium 4.5 L Urine WBC (Auto) 02/27/20 02/27/20 02/27/20 05:00 07:04 17:45 WBC RBC Hgb Hct MCV MCH RDW Plt Count Lymph % (Auto) [place] % (Auto) Eos % (Auto) Lymph # (Auto) [place] # (Auto) Eos # (Auto) Seg Neutrophils % Seg Neuts % (Manual) Lymphocytes % (Manual) Monocytes % (Manual) Basophils % (Manual) Seg Neutrophils # Seg Neutrophils # Man Lymphocytes # (Manual) Monocytes # (Manual) Eosinophils # (Manual) Basophils # (Manual) PT INR D-Dimer ABG pH 7.524 H POC ABG pCO2 POC ABG pO2 ABG pO2 ABG HCO3 ABG O2 Saturation ABG Base Excess ABG Hemoglobin ABG Oxyhemoglobin ABG Potassium 3.0 L ABG Glucose 143 H Oxyhemoglobin Carboxyhemoglobin Sodium Potassium Chloride Carbon Dioxide BUN Creatinine Glucose POC Glucose 154 H 175 H Calcium Ferritin Total Bilirubin Alkaline Phosphatase Lactate Dehydrogenase Total Creatine Kinase CK-MB (CK-2) Rel Index Troponin T C-Reactive Protein Total Protein Albumin Prealbumin LDL Cholesterol Direct HDL Cholesterol Arterial Blood Glucose 143 H Arterial Blood Ionized Calcium Urine WBC (Auto) 02/27/20 02/28/20 02/28/20 Unknown 00:21 04:15 WBC 18.7 H RBC Hgb Hct MCV MCH RDW Plt Count Lymph % (Auto) 8.7 L [place] % (Auto) Eos % (Auto) Lymph # (Auto) [place] # (Auto) 1.2 H Eos # (Auto) Seg Neutrophils % 84.6 H Seg Neuts % (Manual) Lymphocytes % (Manual) Monocytes % (Manual) Basophils % (Manual) Seg Neutrophils # 15.9 H Seg Neutrophils # Man Lymphocytes # (Manual) Monocytes # (Manual) Eosinophils # (Manual) Basophils # (Manual) PT INR D-Dimer ABG pH POC ABG pCO2 POC ABG pO2 ABG pO2 ABG HCO3 ABG O2 Saturation ABG Base Excess ABG Hemoglobin ABG Oxyhemoglobin ABG Potassium ABG Glucose Oxyhemoglobin Carboxyhemoglobin Sodium Potassium 2.9 L* Chloride Carbon Dioxide 33 H D BUN Creatinine < 0.2 L Glucose 157 H POC Glucose 134 H Calcium Ferritin Total Bilirubin Alkaline Phosphatase Lactate Dehydrogenase Total Creatine Kinase CK-MB (CK-2) Rel Index Troponin T C-Reactive Protein Total Protein Albumin Prealbumin LDL Cholesterol Direct HDL Cholesterol Arterial Blood Glucose Arterial Blood Ionized Calcium Urine WBC (Auto) 02/28/20 02/28/20 02/28/20 04:15 05:16 05:39 WBC RBC Hgb Hct MCV MCH RDW Plt Count Lymph % (Auto) [place] % (Auto) Eos % (Auto) Lymph # (Auto) [place] # (Auto) Eos # (Auto) Seg Neutrophils % Seg Neuts % (Manual) Lymphocytes % (Manual) Monocytes % (Manual) Basophils % (Manual) Seg Neutrophils # Seg Neutrophils # Man Lymphocytes # (Manual) Monocytes # (Manual) Eosinophils # (Manual) Basophils # (Manual) PT INR D-Dimer ABG pH POC ABG pCO2 POC ABG pO2 ABG pO2 142.9 H ABG HCO3 34.1 H ABG O2 Saturation ABG Base Excess 8.3 H ABG Hemoglobin ABG Oxyhemoglobin ABG Potassium ABG Glucose Oxyhemoglobin Carboxyhemoglobin Sodium 151 H Potassium Chloride Carbon Dioxide 32 H BUN Creatinine 0.2 L Glucose 167 H POC Glucose 138 H Calcium Ferritin Total Bilirubin Alkaline Phosphatase Lactate Dehydrogenase Total Creatine Kinase CK-MB (CK-2) Rel Index Troponin T C-Reactive Protein Total Protein Albumin Prealbumin LDL Cholesterol Direct HDL Cholesterol Arterial Blood Glucose Arterial Blood Ionized Calcium Urine WBC (Auto) 02/28/20 02/28/20 02/28/20 11:05 11:33 12:54 WBC RBC Hgb Hct MCV MCH RDW Plt Count Lymph % (Auto) [place] % (Auto) Eos % (Auto) Lymph # (Auto) [place] # (Auto) Eos # (Auto) Seg Neutrophils % Seg Neuts % (Manual) Lymphocytes % (Manual) Monocytes % (Manual) Basophils % (Manual) Seg Neutrophils # Seg Neutrophils # Man Lymphocytes # (Manual) Monocytes # (Manual) Eosinophils # (Manual) Basophils # (Manual) PT INR D-Dimer ABG pH POC ABG pCO2 POC ABG pO2 ABG pO2 ABG HCO3 ABG O2 Saturation ABG Base Excess ABG Hemoglobin ABG Oxyhemoglobin ABG Potassium ABG Glucose Oxyhemoglobin Carboxyhemoglobin Sodium Potassium Chloride Carbon Dioxide BUN Creatinine Glucose POC Glucose 160 H Calcium Ferritin Total Bilirubin Alkaline Phosphatase Lactate Dehydrogenase Total Creatine Kinase CK-MB (CK-2) Rel Index Troponin T C-Reactive Protein 4.70 H Total Protein Albumin Prealbumin 0.090 L LDL Cholesterol Direct HDL Cholesterol Arterial Blood Glucose Arterial Blood Ionized Calcium Urine WBC (Auto) 02/28/20 02/29/20 02/29/20 17:34 00:44 04:05 WBC 19.6 H RBC Hgb Hct MCV MCH 27 L RDW 15.4 H Plt Count Lymph % (Auto) [place] % (Auto) Eos % (Auto) Lymph # (Auto) [place] # (Auto) Eos # (Auto) Seg Neutrophils % Seg Neuts % (Manual) 86.0 H Lymphocytes % (Manual) 7.0 L Monocytes % (Manual) Basophils % (Manual) Seg Neutrophils # Seg Neutrophils # Man 16.9 H Lymphocytes # (Manual) Monocytes # (Manual) 1.2 H Eosinophils # (Manual) Basophils # (Manual) PT INR D-Dimer ABG pH POC ABG pCO2 POC ABG pO2 ABG pO2 ABG HCO3 ABG O2 Saturation ABG Base Excess ABG Hemoglobin ABG Oxyhemoglobin ABG Potassium ABG Glucose Oxyhemoglobin Carboxyhemoglobin Sodium Potassium Chloride Carbon Dioxide BUN Creatinine Glucose POC Glucose 136 H 156 H Calcium Ferritin Total Bilirubin Alkaline Phosphatase Lactate Dehydrogenase Total Creatine Kinase CK-MB (CK-2) Rel Index Troponin T C-Reactive Protein Total Protein Albumin Prealbumin LDL Cholesterol Direct HDL Cholesterol Arterial Blood Glucose Arterial Blood Ionized Calcium Urine WBC (Auto) 02/29/20 02/29/20 02/29/20 04:05 05:14 05:33 WBC RBC Hgb Hct MCV MCH RDW Plt Count Lymph % (Auto) [place] % (Auto) Eos % (Auto) Lymph # (Auto) [place] # (Auto) Eos # (Auto) Seg Neutrophils % Seg Neuts % (Manual) Lymphocytes % (Manual) Monocytes % (Manual) Basophils % (Manual) Seg Neutrophils # Seg Neutrophils # Man Lymphocytes # (Manual) Monocytes # (Manual) Eosinophils # (Manual) Basophils # (Manual) PT INR D-Dimer ABG pH POC ABG pCO2 54.3 H POC ABG pO2 124.8 H ABG pO2 ABG HCO3 ABG O2 Saturation ABG Base Excess ABG Hemoglobin ABG Oxyhemoglobin ABG Potassium ABG Glucose 185 H Oxyhemoglobin Carboxyhemoglobin Sodium 148 H Potassium Chloride Carbon Dioxide 33 H BUN Creatinine < 0.2 L Glucose 173 H POC Glucose 152 H Calcium Ferritin Total Bilirubin Alkaline Phosphatase Lactate Dehydrogenase Total Creatine Kinase CK-MB (CK-2) Rel Index Troponin T C-Reactive Protein Total Protein Albumin Prealbumin LDL Cholesterol Direct HDL Cholesterol Arterial Blood Glucose 185 H Arterial Blood Ionized Calcium Urine WBC (Auto) 03/01/20 03/01/20 03/01/20 00:00 03:45 04:33 WBC 23.1 H RBC Hgb Hct MCV MCH 27 L RDW 15.3 H Plt Count Lymph % (Auto) [place] % (Auto) Eos % (Auto) Lymph # (Auto) [place] # (Auto) Eos # (Auto) Seg Neutrophils % Seg Neuts % (Manual) 92.0 H Lymphocytes % (Manual) 6.0 L Monocytes % (Manual) Basophils % (Manual) Seg Neutrophils # Seg Neutrophils # Man 21.3 H Lymphocytes # (Manual) Monocytes # (Manual) Eosinophils # (Manual) 0.5 H Basophils # (Manual) PT INR D-Dimer ABG pH 7.492 H POC ABG pCO2 POC ABG pO2 ABG pO2 157.1 H ABG HCO3 32.3 H ABG O2 Saturation ABG Base Excess 8.1 H ABG Hemoglobin 13.2 L ABG Oxyhemoglobin ABG Potassium ABG Glucose Oxyhemoglobin Carboxyhemoglobin Sodium Potassium Chloride Carbon Dioxide BUN Creatinine Glucose POC Glucose 109 H Calcium Ferritin Total Bilirubin Alkaline Phosphatase Lactate Dehydrogenase Total Creatine Kinase CK-MB (CK-2) Rel Index Troponin T C-Reactive Protein Total Protein Albumin Prealbumin LDL Cholesterol Direct HDL Cholesterol Arterial Blood Glucose Arterial Blood Ionized Calcium Urine WBC (Auto) 03/01/20 03/01/20 03/01/20 04:33 05:29 12:32 WBC RBC Hgb Hct MCV MCH RDW Plt Count Lymph % (Auto) [place] % (Auto) Eos % (Auto) Lymph # (Auto) [place] # (Auto) Eos # (Auto) Seg Neutrophils % Seg Neuts % (Manual) Lymphocytes % (Manual) Monocytes % (Manual) Basophils % (Manual) Seg Neutrophils # Seg Neutrophils # Man Lymphocytes # (Manual) Monocytes # (Manual) Eosinophils # (Manual) Basophils # (Manual) PT INR D-Dimer ABG pH POC ABG pCO2 POC ABG pO2 ABG pO2 ABG HCO3 ABG O2 Saturation ABG Base Excess ABG Hemoglobin ABG Oxyhemoglobin ABG Potassium ABG Glucose Oxyhemoglobin Carboxyhemoglobin Sodium 146 H Potassium Chloride Carbon Dioxide 32 H BUN Creatinine < 0.2 L Glucose 120 H POC Glucose 120 H 128 H Calcium Ferritin Total Bilirubin Alkaline Phosphatase Lactate Dehydrogenase Total Creatine Kinase CK-MB (CK-2) Rel Index Troponin T C-Reactive Protein Total Protein Albumin Prealbumin LDL Cholesterol Direct HDL Cholesterol Arterial Blood Glucose Arterial Blood Ionized Calcium Urine WBC (Auto) 03/01/20 03/01/20 03/02/20 17:38 23:46 06:13 WBC RBC Hgb Hct MCV MCH RDW Plt Count Lymph % (Auto) [place] % (Auto) Eos % (Auto) Lymph # (Auto) [place] # (Auto) Eos # (Auto) Seg Neutrophils % Seg Neuts % (Manual) Lymphocytes % (Manual) Monocytes % (Manual) Basophils % (Manual) Seg Neutrophils # Seg Neutrophils # Man Lymphocytes # (Manual) Monocytes # (Manual) Eosinophils # (Manual) Basophils # (Manual) PT INR D-Dimer ABG pH POC ABG pCO2 POC ABG pO2 ABG pO2 ABG HCO3 ABG O2 Saturation ABG Base Excess ABG Hemoglobin ABG Oxyhemoglobin ABG Potassium ABG Glucose Oxyhemoglobin Carboxyhemoglobin Sodium Potassium Chloride Carbon Dioxide BUN Creatinine Glucose POC Glucose 114 H 121 H 120 H Calcium Ferritin Total Bilirubin Alkaline Phosphatase Lactate Dehydrogenase Total Creatine Kinase CK-MB (CK-2) Rel Index Troponin T C-Reactive Protein Total Protein Albumin Prealbumin LDL Cholesterol Direct HDL Cholesterol Arterial Blood Glucose Arterial Blood Ionized Calcium Urine WBC (Auto) 03/02/20 03/02/20 03/03/20 09:47 09:47 10:21 WBC 23.6 H RBC Hgb Hct MCV MCH RDW 15.3 H Plt Count 494 H Lymph % (Auto) [place] % (Auto) Eos % (Auto) Lymph # (Auto) [place] # (Auto) Eos # (Auto) Seg Neutrophils % Seg Neuts % (Manual) 85.0 H Lymphocytes % (Manual) 6.0 L Monocytes % (Manual) Basophils % (Manual) Seg Neutrophils # Seg Neutrophils # Man 20.1 H Lymphocytes # (Manual) Monocytes # (Manual) 1.7 H Eosinophils # (Manual) Basophils # (Manual) PT INR D-Dimer ABG pH POC ABG pCO2 POC ABG pO2 ABG pO2 ABG HCO3 ABG O2 Saturation ABG Base Excess ABG Hemoglobin ABG Oxyhemoglobin ABG Potassium 3.3 L ABG Glucose 158 H Oxyhemoglobin Carboxyhemoglobin Sodium Potassium Chloride Carbon Dioxide BUN Creatinine < 0.2 L Glucose 177 H POC Glucose Calcium Ferritin Total Bilirubin Alkaline Phosphatase Lactate Dehydrogenase Total Creatine Kinase CK-MB (CK-2) Rel Index Troponin T C-Reactive Protein Total Protein Albumin Prealbumin LDL Cholesterol Direct HDL Cholesterol Arterial Blood Glucose 158 H Arterial Blood Ionized Calcium Urine WBC (Auto) 03/03/20 03/04/20 03/04/20 21:30 00:00 12:23 WBC RBC Hgb Hct MCV MCH RDW Plt Count Lymph % (Auto) [place] % (Auto) Eos % (Auto) Lymph # (Auto) [place] # (Auto) Eos # (Auto) Seg Neutrophils % Seg Neuts % (Manual) Lymphocytes % (Manual) Monocytes % (Manual) Basophils % (Manual) Seg Neutrophils # Seg Neutrophils # Man Lymphocytes # (Manual) Monocytes # (Manual) Eosinophils # (Manual) Basophils # (Manual) PT INR D-Dimer ABG pH 7.328 L POC ABG pCO2 POC ABG pO2 ABG pO2 68.4 L ABG HCO3 35.0 H ABG O2 Saturation 93.9 L ABG Base Excess 6.8 H ABG Hemoglobin 12.7 L ABG Oxyhemoglobin ABG Potassium ABG Glucose Oxyhemoglobin 91.9 L Carboxyhemoglobin Sodium Potassium Chloride Carbon Dioxide BUN Creatinine Glucose POC Glucose 187 H 163 H Calcium Ferritin Total Bilirubin Alkaline Phosphatase Lactate Dehydrogenase Total Creatine Kinase CK-MB (CK-2) Rel Index Troponin T C-Reactive Protein Total Protein Albumin Prealbumin LDL Cholesterol Direct HDL Cholesterol Arterial Blood Glucose Arterial Blood Ionized Calcium Urine WBC (Auto) 03/04/20 03/04/20 03/05/20 18:15 21:30 06:02 WBC RBC Hgb Hct MCV MCH RDW Plt Count Lymph % (Auto) [place] % (Auto) Eos % (Auto) Lymph # (Auto) [place] # (Auto) Eos # (Auto) Seg Neutrophils % Seg Neuts % (Manual) Lymphocytes % (Manual) Monocytes % (Manual) Basophils % (Manual) Seg Neutrophils # Seg Neutrophils # Man Lymphocytes # (Manual) Monocytes # (Manual) Eosinophils # (Manual) Basophils # (Manual) PT INR D-Dimer ABG pH 7.297 L POC ABG pCO2 POC ABG pO2 ABG pO2 ABG HCO3 41.0 H ABG O2 Saturation ABG Base Excess 11.0 H ABG Hemoglobin 13.1 L ABG Oxyhemoglobin ABG Potassium ABG Glucose Oxyhemoglobin 94.5 L Carboxyhemoglobin Sodium Potassium Chloride Carbon Dioxide BUN Creatinine Glucose POC Glucose 192 H 127 H Calcium Ferritin Total Bilirubin Alkaline Phosphatase Lactate Dehydrogenase Total Creatine Kinase CK-MB (CK-2) Rel Index Troponin T C-Reactive Protein Total Protein Albumin Prealbumin LDL Cholesterol Direct HDL Cholesterol Arterial Blood Glucose Arterial Blood Ionized Calcium Urine WBC (Auto) 03/05/20 03/05/20 03/06/20 12:09 16:42 00:24 WBC RBC Hgb Hct MCV MCH RDW Plt Count Lymph % (Auto) [place] % (Auto) Eos % (Auto) Lymph # (Auto) [place] # (Auto) Eos # (Auto) Seg Neutrophils % Seg Neuts % (Manual) Lymphocytes % (Manual) Monocytes % (Manual) Basophils % (Manual) Seg Neutrophils # Seg Neutrophils # Man Lymphocytes # (Manual) Monocytes # (Manual) Eosinophils # (Manual) Basophils # (Manual) PT INR D-Dimer ABG pH POC ABG pCO2 POC ABG pO2 ABG pO2 ABG HCO3 ABG O2 Saturation ABG Base Excess ABG Hemoglobin ABG Oxyhemoglobin ABG Potassium ABG Glucose Oxyhemoglobin Carboxyhemoglobin Sodium Potassium Chloride Carbon Dioxide BUN Creatinine Glucose POC Glucose 147 H 114 H 134 H Calcium Ferritin Total Bilirubin Alkaline Phosphatase Lactate Dehydrogenase Total Creatine Kinase CK-MB (CK-2) Rel Index Troponin T C-Reactive Protein Total Protein Albumin Prealbumin LDL Cholesterol Direct HDL Cholesterol Arterial Blood Glucose Arterial Blood Ionized Calcium Urine WBC (Auto) 03/06/20 03/06/20 03/06/20 04:34 05:53 06:08 WBC 25.4 H RBC Hgb 10.5 L Hct 32.7 L MCV MCH 27 L RDW 15.3 H Plt Count 634 H Lymph % (Auto) [place] % (Auto) Eos % (Auto) Lymph # (Auto) [place] # (Auto) Eos # (Auto) Seg Neutrophils % Seg Neuts % (Manual) 88.0 H Lymphocytes % (Manual) 2.0 L Monocytes % (Manual) 8.0 H Basophils % (Manual) Seg Neutrophils # Seg Neutrophils # Man 22.4 H Lymphocytes # (Manual) 0.5 L Monocytes # (Manual) 2.0 H Eosinophils # (Manual) Basophils # (Manual) PT INR D-Dimer ABG pH POC ABG pCO2 POC ABG pO2 ABG pO2 ABG HCO3 37.9 H ABG O2 Saturation ABG Base Excess 11.4 H ABG Hemoglobin 10.6 L ABG Oxyhemoglobin ABG Potassium ABG Glucose Oxyhemoglobin 94.7 L Carboxyhemoglobin Sodium Potassium Chloride Carbon Dioxide BUN Creatinine Glucose POC Glucose 135 H Calcium Ferritin Total Bilirubin Alkaline Phosphatase Lactate Dehydrogenase Total Creatine Kinase CK-MB (CK-2) Rel Index Troponin T C-Reactive Protein Total Protein Albumin Prealbumin LDL Cholesterol Direct HDL Cholesterol Arterial Blood Glucose Arterial Blood Ionized Calcium Urine WBC (Auto) 03/06/20 03/06/20 03/06/20 06:08 12:19 19:10 WBC RBC Hgb Hct MCV MCH RDW Plt Count Lymph % (Auto) [place] % (Auto) Eos % (Auto) Lymph # (Auto) [place] # (Auto) Eos # (Auto) Seg Neutrophils % Seg Neuts % (Manual) Lymphocytes % (Manual) Monocytes % (Manual) Basophils % (Manual) Seg Neutrophils # Seg Neutrophils # Man Lymphocytes # (Manual) Monocytes # (Manual) Eosinophils # (Manual) Basophils # (Manual) PT INR D-Dimer ABG pH POC ABG pCO2 POC ABG pO2 ABG pO2 ABG HCO3 ABG O2 Saturation ABG Base Excess ABG Hemoglobin ABG Oxyhemoglobin ABG Potassium ABG Glucose Oxyhemoglobin Carboxyhemoglobin Sodium 150 H D Potassium Chloride Carbon Dioxide 39 H D BUN 23 H Creatinine < 0.2 L Glucose 144 H POC Glucose 169 H 152 H Calcium Ferritin Total Bilirubin Alkaline Phosphatase Lactate Dehydrogenase Total Creatine Kinase CK-MB (CK-2) Rel Index Troponin T C-Reactive Protein Total Protein Albumin 3.3 L Prealbumin LDL Cholesterol Direct HDL Cholesterol Arterial Blood Glucose Arterial Blood Ionized Calcium Urine WBC (Auto) 03/06/20 03/07/20 03/07/20 23:58 04:25 04:25 WBC 22.1 H RBC Hgb 10.9 L Hct 32.9 L MCV MCH RDW 15.5 H Plt Count 739 H Lymph % (Auto) 7.8 L [place] % (Auto) Eos % (Auto) Lymph # (Auto) [place] # (Auto) 1.3 H Eos # (Auto) Seg Neutrophils % 85.5 H Seg Neuts % (Manual) Lymphocytes % (Manual) Monocytes % (Manual) Basophils % (Manual) Seg Neutrophils # 18.9 H Seg Neutrophils # Man Lymphocytes # (Manual) Monocytes # (Manual) Eosinophils # (Manual) Basophils # (Manual) PT INR D-Dimer ABG pH POC ABG pCO2 POC ABG pO2 ABG pO2 ABG HCO3 ABG O2 Saturation ABG Base Excess ABG Hemoglobin ABG Oxyhemoglobin ABG Potassium ABG Glucose Oxyhemoglobin Carboxyhemoglobin Sodium 146 H Potassium Chloride Carbon Dioxide 37 H BUN Creatinine < 0.2 L Glucose 118 H POC Glucose 111 H Calcium Ferritin Total Bilirubin Alkaline Phosphatase Lactate Dehydrogenase Total Creatine Kinase CK-MB (CK-2) Rel Index Troponin T C-Reactive Protein Total Protein Albumin 3.7 L Prealbumin LDL Cholesterol Direct HDL Cholesterol Arterial Blood Glucose Arterial Blood Ionized Calcium Urine WBC (Auto) 03/07/20 03/07/20 03/07/20 05:20 17:45 23:32 WBC RBC Hgb Hct MCV MCH RDW Plt Count Lymph % (Auto) [place] % (Auto) Eos % (Auto) Lymph # (Auto) [place] # (Auto) Eos # (Auto) Seg Neutrophils % Seg Neuts % (Manual) Lymphocytes % (Manual) Monocytes % (Manual) Basophils % (Manual) Seg Neutrophils # Seg Neutrophils # Man Lymphocytes # (Manual) Monocytes # (Manual) Eosinophils # (Manual) Basophils # (Manual) PT INR D-Dimer ABG pH POC ABG pCO2 POC ABG pO2 ABG pO2 ABG HCO3 ABG O2 Saturation ABG Base Excess ABG Hemoglobin ABG Oxyhemoglobin ABG Potassium ABG Glucose Oxyhemoglobin Carboxyhemoglobin Sodium Potassium Chloride Carbon Dioxide BUN Creatinine Glucose POC Glucose 113 H 124 H 210 H Calcium Ferritin Total Bilirubin Alkaline Phosphatase Lactate Dehydrogenase Total Creatine Kinase CK-MB (CK-2) Rel Index Troponin T C-Reactive Protein Total Protein Albumin Prealbumin LDL Cholesterol Direct HDL Cholesterol Arterial Blood Glucose Arterial Blood Ionized Calcium Urine WBC (Auto) 03/08/20 03/08/20 03/08/20 05:35 06:43 06:43 WBC 28.9 H RBC 3.53 L Hgb 9.7 L Hct 30.3 L MCV MCH RDW 15.6 H Plt Count 578 H Lymph % (Auto) [place] % (Auto) Eos % (Auto) Lymph # (Auto) [place] # (Auto) Eos # (Auto) Seg Neutrophils % Seg Neuts % (Manual) 93.0 H Lymphocytes % (Manual) 4.0 L Monocytes % (Manual) Basophils % (Manual) Seg Neutrophils # Seg Neutrophils # Man 26.9 H Lymphocytes # (Manual) Monocytes # (Manual) Eosinophils # (Manual) Basophils # (Manual) PT INR D-Dimer ABG pH POC ABG pCO2 POC ABG pO2 ABG pO2 ABG HCO3 ABG O2 Saturation ABG Base Excess ABG Hemoglobin ABG Oxyhemoglobin ABG Potassium ABG Glucose Oxyhemoglobin Carboxyhemoglobin Sodium 146 H Potassium Chloride Carbon Dioxide 35 H BUN 34 H Creatinine 0.3 L D Glucose 125 H POC Glucose 147 H Calcium Ferritin Total Bilirubin Alkaline Phosphatase Lactate Dehydrogenase Total Creatine Kinase CK-MB (CK-2) Rel Index Troponin T C-Reactive Protein Total Protein 5.9 L Albumin 3.2 L Prealbumin LDL Cholesterol Direct HDL Cholesterol Arterial Blood Glucose Arterial Blood Ionized Calcium Urine WBC (Auto) 03/08/20 03/08/20 03/08/20 08:57 11:14 12:34 WBC RBC Hgb Hct MCV MCH RDW Plt Count Lymph % (Auto) [place] % (Auto) Eos % (Auto) Lymph # (Auto) [place] # (Auto) Eos # (Auto) Seg Neutrophils % Seg Neuts % (Manual) Lymphocytes % (Manual) Monocytes % (Manual) Basophils % (Manual) Seg Neutrophils # Seg Neutrophils # Man Lymphocytes # (Manual) Monocytes # (Manual) Eosinophils # (Manual) Basophils # (Manual) PT INR D-Dimer ABG pH POC ABG pCO2 63.1 H POC ABG pO2 ABG pO2 ABG HCO3 ABG O2 Saturation ABG Base Excess ABG Hemoglobin 10.9 L ABG Oxyhemoglobin ABG Potassium ABG Glucose 176 H Oxyhemoglobin Carboxyhemoglobin Sodium Potassium Chloride Carbon Dioxide BUN Creatinine Glucose POC Glucose 171 H Calcium Ferritin Total Bilirubin Alkaline Phosphatase Lactate Dehydrogenase Total Creatine Kinase CK-MB (CK-2) Rel Index Troponin T C-Reactive Protein Total Protein Albumin Prealbumin LDL Cholesterol Direct HDL Cholesterol Arterial Blood Glucose 176 H Arterial Blood Ionized Calcium 4.5 L Urine WBC (Auto) 10.0 H 03/08/20 03/08/20 03/09/20 18:02 23:43 05:49 WBC RBC Hgb Hct MCV MCH RDW Plt Count Lymph % (Auto) [place] % (Auto) Eos % (Auto) Lymph # (Auto) [place] # (Auto) Eos # (Auto) Seg Neutrophils % Seg Neuts % (Manual) Lymphocytes % (Manual) Monocytes % (Manual) Basophils % (Manual) Seg Neutrophils # Seg Neutrophils # Man Lymphocytes # (Manual) Monocytes # (Manual) Eosinophils # (Manual) Basophils # (Manual) PT INR D-Dimer ABG pH POC ABG pCO2 POC ABG pO2 ABG pO2 ABG HCO3 ABG O2 Saturation ABG Base Excess ABG Hemoglobin ABG Oxyhemoglobin ABG Potassium ABG Glucose Oxyhemoglobin Carboxyhemoglobin Sodium Potassium Chloride Carbon Dioxide BUN Creatinine Glucose POC Glucose 157 H 134 H 163 H Calcium Ferritin Total Bilirubin Alkaline Phosphatase Lactate Dehydrogenase Total Creatine Kinase CK-MB (CK-2) Rel Index Troponin T C-Reactive Protein Total Protein Albumin Prealbumin LDL Cholesterol Direct HDL Cholesterol Arterial Blood Glucose Arterial Blood Ionized Calcium Urine WBC (Auto) 03/09/20 03/09/20 03/09/20 08:35 08:35 12:11 WBC 23.4 H RBC 3.36 L Hgb 9.3 L Hct 28.8 L MCV MCH RDW 15.9 H Plt Count 521 H Lymph % (Auto) [place] % (Auto) Eos % (Auto) Lymph # (Auto) [place] # (Auto) Eos # (Auto) Seg Neutrophils % Seg Neuts % (Manual) 87.0 H Lymphocytes % (Manual) 4.0 L Monocytes % (Manual) 9.0 H Basophils % (Manual) Seg Neutrophils # Seg Neutrophils # Man 20.4 H Lymphocytes # (Manual) 0.9 L Monocytes # (Manual) 2.1 H Eosinophils # (Manual) Basophils # (Manual) PT INR D-Dimer ABG pH POC ABG pCO2 POC ABG pO2 ABG pO2 ABG HCO3 ABG O2 Saturation ABG Base Excess ABG Hemoglobin ABG Oxyhemoglobin ABG Potassium ABG Glucose Oxyhemoglobin Carboxyhemoglobin Sodium 147 H Potassium Chloride Carbon Dioxide 37 H BUN 63 H Creatinine Glucose 154 H POC Glucose 128 H Calcium Ferritin Total Bilirubin Alkaline Phosphatase Lactate Dehydrogenase Total Creatine Kinase CK-MB (CK-2) Rel Index Troponin T C-Reactive Protein Total Protein Albumin Prealbumin LDL Cholesterol Direct HDL Cholesterol Arterial Blood Glucose Arterial Blood Ionized Calcium Urine WBC (Auto) 03/09/20 03/10/20 03/10/20 17:51 00:25 05:41 WBC RBC Hgb Hct MCV MCH RDW Plt Count Lymph % (Auto) [place] % (Auto) Eos % (Auto) Lymph # (Auto) [place] # (Auto) Eos # (Auto) Seg Neutrophils % Seg Neuts % (Manual) Lymphocytes % (Manual) Monocytes % (Manual) Basophils % (Manual) Seg Neutrophils # Seg Neutrophils # Man Lymphocytes # (Manual) Monocytes # (Manual) Eosinophils # (Manual) Basophils # (Manual) PT INR D-Dimer ABG pH POC ABG pCO2 POC ABG pO2 ABG pO2 ABG HCO3 ABG O2 Saturation ABG Base Excess ABG Hemoglobin ABG Oxyhemoglobin ABG Potassium ABG Glucose Oxyhemoglobin Carboxyhemoglobin Sodium Potassium Chloride Carbon Dioxide BUN Creatinine Glucose POC Glucose 127 H 128 H 153 H Calcium Ferritin Total Bilirubin Alkaline Phosphatase Lactate Dehydrogenase Total Creatine Kinase CK-MB (CK-2) Rel Index Troponin T C-Reactive Protein Total Protein Albumin Prealbumin LDL Cholesterol Direct HDL Cholesterol Arterial Blood Glucose Arterial Blood Ionized Calcium Urine WBC (Auto) 03/10/20 03/10/20 03/10/20 06:14 06:14 12:02 WBC 18.3 H RBC 3.45 L Hgb 9.5 L Hct 29.5 L MCV MCH RDW 16.1 H Plt Count 494 H Lymph % (Auto) [place] % (Auto) Eos % (Auto) Lymph # (Auto) [place] # (Auto) Eos # (Auto) Seg Neutrophils % Seg Neuts % (Manual) 95.0 H Lymphocytes % (Manual) 1.0 L Monocytes % (Manual) Basophils % (Manual) Seg Neutrophils # Seg Neutrophils # Man 17.4 H Lymphocytes # (Manual) 0.2 L Monocytes # (Manual) Eosinophils # (Manual) Basophils # (Manual) PT INR D-Dimer ABG pH POC ABG pCO2 POC ABG pO2 ABG pO2 ABG HCO3 ABG O2 Saturation ABG Base Excess ABG Hemoglobin ABG Oxyhemoglobin ABG Potassium ABG Glucose Oxyhemoglobin Carboxyhemoglobin Sodium 149 H Potassium Chloride Carbon Dioxide 35 H BUN 34 H Creatinine 0.2 L D Glucose 177 H POC Glucose 151 H Calcium Ferritin Total Bilirubin Alkaline Phosphatase Lactate Dehydrogenase Total Creatine Kinase CK-MB (CK-2) Rel Index Troponin T C-Reactive Protein Total Protein Albumin Prealbumin LDL Cholesterol Direct HDL Cholesterol Arterial Blood Glucose Arterial Blood Ionized Calcium Urine WBC (Auto) 03/10/20 03/10/20 03/11/20 17:41 23:53 05:02 WBC RBC Hgb Hct MCV MCH RDW Plt Count Lymph % (Auto) [place] % (Auto) Eos % (Auto) Lymph # (Auto) [place] # (Auto) Eos # (Auto) Seg Neutrophils % Seg Neuts % (Manual) Lymphocytes % (Manual) Monocytes % (Manual) Basophils % (Manual) Seg Neutrophils # Seg Neutrophils # Man Lymphocytes # (Manual) Monocytes # (Manual) Eosinophils # (Manual) Basophils # (Manual) PT INR D-Dimer ABG pH POC ABG pCO2 POC ABG pO2 ABG pO2 ABG HCO3 ABG O2 Saturation ABG Base Excess ABG Hemoglobin ABG Oxyhemoglobin ABG Potassium ABG Glucose Oxyhemoglobin Carboxyhemoglobin Sodium Potassium Chloride Carbon Dioxide BUN Creatinine Glucose POC Glucose 168 H 142 H 146 H Calcium Ferritin Total Bilirubin Alkaline Phosphatase Lactate Dehydrogenase Total Creatine Kinase CK-MB (CK-2) Rel Index Troponin T C-Reactive Protein Total Protein Albumin Prealbumin LDL Cholesterol Direct HDL Cholesterol Arterial Blood Glucose Arterial Blood Ionized Calcium Urine WBC (Auto) 11/03/11/20 03/11/20 11:30 14:01 14:01 WBC 19.7 H RBC 3.04 L Hgb 8.7 L Hct 25.8 L MCV MCH RDW 15.6 H Plt Count Lymph % (Auto) [place] % (Auto) Eos % (Auto) Lymph # (Auto) [place] # (Auto) Eos # (Auto) Seg Neutrophils % Seg Neuts % (Manual) Lymphocytes % (Manual) Monocytes % (Manual) Basophils % (Manual) Seg Neutrophils # Seg Neutrophils # Man Lymphocytes # (Manual) Monocytes # (Manual) Eosinophils # (Manual) Basophils # (Manual) PT INR D-Dimer ABG pH POC ABG pCO2 POC ABG pO2 ABG pO2 ABG HCO3 ABG O2 Saturation ABG Base Excess ABG Hemoglobin ABG Oxyhemoglobin ABG Potassium ABG Glucose Oxyhemoglobin Carboxyhemoglobin Sodium 151 H Potassium Chloride Carbon Dioxide 37 H BUN Creatinine < 0.2 L Glucose 171 H POC Glucose 248 H Calcium Ferritin Total Bilirubin Alkaline Phosphatase Lactate Dehydrogenase Total Creatine Kinase CK-MB (CK-2) Rel Index Troponin T C-Reactive Protein Total Protein Albumin Prealbumin LDL Cholesterol Direct HDL Cholesterol Arterial Blood Glucose Arterial Blood Ionized Calcium Urine WBC (Auto) 03/11/20 03/11/20 03/12/20 17:09 23:52 04:39 WBC 19.9 H RBC 3.16 L Hgb 8.9 L Hct 27.5 L MCV MCH RDW 15.7 H Plt Count Lymph % (Auto) 6.8 L [place] % (Auto) Eos % (Auto) Lymph # (Auto) [place] # (Auto) 1.2 H Eos # (Auto) Seg Neutrophils % 86.0 H Seg Neuts % (Manual) Lymphocytes % (Manual) Monocytes % (Manual) Basophils % (Manual) Seg Neutrophils # 17.1 H Seg Neutrophils # Man Lymphocytes # (Manual) Monocytes # (Manual) Eosinophils # (Manual) Basophils # (Manual) PT INR D-Dimer ABG pH POC ABG pCO2 POC ABG pO2 ABG pO2 ABG HCO3 ABG O2 Saturation ABG Base Excess ABG Hemoglobin ABG Oxyhemoglobin ABG Potassium ABG Glucose Oxyhemoglobin Carboxyhemoglobin Sodium Potassium Chloride Carbon Dioxide BUN Creatinine Glucose POC Glucose 124 H 131 H Calcium Ferritin Total Bilirubin Alkaline Phosphatase Lactate Dehydrogenase Total Creatine Kinase CK-MB (CK-2) Rel Index Troponin T C-Reactive Protein Total Protein Albumin Prealbumin LDL Cholesterol Direct HDL Cholesterol Arterial Blood Glucose Arterial Blood Ionized Calcium Urine WBC (Auto) 03/12/20 03/12/20 03/12/20 04:39 05:28 11:34 WBC RBC Hgb Hct MCV MCH RDW Plt Count Lymph % (Auto) [place] % (Auto) Eos % (Auto) Lymph # (Auto) [place] # (Auto) Eos # (Auto) Seg Neutrophils % Seg Neuts % (Manual) Lymphocytes % (Manual) Monocytes % (Manual) Basophils % (Manual) Seg Neutrophils # Seg Neutrophils # Man Lymphocytes # (Manual) Monocytes # (Manual) Eosinophils # (Manual) Basophils # (Manual) PT INR D-Dimer ABG pH POC ABG pCO2 POC ABG pO2 ABG pO2 ABG HCO3 ABG O2 Saturation ABG Base Excess ABG Hemoglobin ABG Oxyhemoglobin ABG Potassium ABG Glucose Oxyhemoglobin Carboxyhemoglobin Sodium 147 H Potassium Chloride Carbon Dioxide 40 H BUN Creatinine < 0.2 L Glucose 175 H POC Glucose 167 H 144 H Calcium Ferritin Total Bilirubin Alkaline Phosphatase Lactate Dehydrogenase Total Creatine Kinase CK-MB (CK-2) Rel Index Troponin T C-Reactive Protein Total Protein Albumin Prealbumin LDL Cholesterol Direct HDL Cholesterol Arterial Blood Glucose Arterial Blood Ionized Calcium Urine WBC (Auto) 03/12/20 03/12/20 03/13/20 17:32 23:57 05:57 WBC RBC Hgb Hct MCV MCH RDW Plt Count Lymph % (Auto) [place] % (Auto) Eos % (Auto) Lymph # (Auto) [place] # (Auto) Eos # (Auto) Seg Neutrophils % Seg Neuts % (Manual) Lymphocytes % (Manual) Monocytes % (Manual) Basophils % (Manual) Seg Neutrophils # Seg Neutrophils # Man Lymphocytes # (Manual) Monocytes # (Manual) Eosinophils # (Manual) Basophils # (Manual) PT INR D-Dimer ABG pH POC ABG pCO2 POC ABG pO2 ABG pO2 ABG HCO3 ABG O2 Saturation ABG Base Excess ABG Hemoglobin ABG Oxyhemoglobin ABG Potassium ABG Glucose Oxyhemoglobin Carboxyhemoglobin Sodium Potassium Chloride Carbon Dioxide BUN Creatinine Glucose POC Glucose 141 H 137 H 161 H Calcium Ferritin Total Bilirubin Alkaline Phosphatase Lactate Dehydrogenase Total Creatine Kinase CK-MB (CK-2) Rel Index Troponin T C-Reactive Protein Total Protein Albumin Prealbumin LDL Cholesterol Direct HDL Cholesterol Arterial Blood Glucose Arterial Blood Ionized Calcium Urine WBC (Auto) 03/13/20 03/13/2020 12:28 14:14 18:39 WBC RBC Hgb Hct MCV MCH RDW Plt Count Lymph % (Auto) [place] % (Auto) Eos % (Auto) Lymph # (Auto) [place] # (Auto) Eos # (Auto) Seg Neutrophils % Seg Neuts % (Manual) Lymphocytes % (Manual) Monocytes % (Manual) Basophils % (Manual) Seg Neutrophils # Seg Neutrophils # Man Lymphocytes # (Manual) Monocytes # (Manual) Eosinophils # (Manual) Basophils # (Manual) PT INR D-Dimer ABG pH POC ABG pCO2 POC ABG pO2 ABG pO2 ABG HCO3 ABG O2 Saturation ABG Base Excess ABG Hemoglobin ABG Oxyhemoglobin ABG Potassium ABG Glucose Oxyhemoglobin Carboxyhemoglobin Sodium Potassium Chloride Carbon Dioxide 39 H BUN Creatinine < 0.2 L Glucose 129 H POC Glucose 130 H 125 H Calcium Ferritin Total Bilirubin Alkaline Phosphatase Lactate Dehydrogenase Total Creatine Kinase CK-MB (CK-2) Rel Index Troponin T C-Reactive Protein Total Protein Albumin Prealbumin LDL Cholesterol Direct HDL Cholesterol Arterial Blood Glucose Arterial Blood Ionized Calcium Urine WBC (Auto) 03/13/20 03/14/20 03/14/20 23:33 05:24 08:07 WBC 16.8 H RBC 2.81 L Hgb 7.9 L Hct 23.9 L MCV MCH RDW 15.9 H Plt Count Lymph % (Auto) [place] % (Auto) Eos % (Auto) Lymph # (Auto) [place] # (Auto) Eos # (Auto) Seg Neutrophils % Seg Neuts % (Manual) 84.0 H Lymphocytes % (Manual) 10.0 L Monocytes % (Manual) Basophils % (Manual) Seg Neutrophils # Seg Neutrophils # Man 14.1 H Lymphocytes # (Manual) Monocytes # (Manual) Eosinophils # (Manual) Basophils # (Manual) PT INR D-Dimer ABG pH POC ABG pCO2 POC ABG pO2 ABG pO2 ABG HCO3 ABG O2 Saturation ABG Base Excess ABG Hemoglobin ABG Oxyhemoglobin ABG Potassium ABG Glucose Oxyhemoglobin Carboxyhemoglobin Sodium Potassium Chloride Carbon Dioxide BUN Creatinine Glucose POC Glucose 146 H 125 H Calcium Ferritin Total Bilirubin Alkaline Phosphatase Lactate Dehydrogenase Total Creatine Kinase CK-MB (CK-2) Rel Index Troponin T C-Reactive Protein Total Protein Albumin Prealbumin LDL Cholesterol Direct HDL Cholesterol Arterial Blood Glucose Arterial Blood Ionized Calcium Urine WBC (Auto) 03/14/20 03/14/2003/14/20 08:07 12:21 18:26 WBC RBC Hgb Hct MCV MCH RDW Plt Count Lymph % (Auto) [place] % (Auto) Eos % (Auto) Lymph # (Auto) [place] # (Auto) Eos # (Auto) Seg Neutrophils % Seg Neuts % (Manual) Lymphocytes % (Manual) Monocytes % (Manual) Basophils % (Manual) Seg Neutrophils # Seg Neutrophils # Man Lymphocytes # (Manual) Monocytes # (Manual) Eosinophils # (Manual) Basophils # (Manual) PT INR D-Dimer ABG pH POC ABG pCO2 POC ABG pO2 ABG pO2 ABG HCO3 ABG O2 Saturation ABG Base Excess ABG Hemoglobin ABG Oxyhemoglobin ABG Potassium ABG Glucose Oxyhemoglobin Carboxyhemoglobin Sodium Potassium Chloride 97.0 L Carbon Dioxide 37 H BUN Creatinine < 0.2 L Glucose 129 H POC Glucose 109 H 142 H Calcium 8.3 L Ferritin Total Bilirubin Alkaline Phosphatase Lactate Dehydrogenase Total Creatine Kinase CK-MB (CK-2) Rel Index Troponin T C-Reactive Protein Total Protein Albumin Prealbumin LDL Cholesterol Direct HDL Cholesterol Arterial Blood Glucose Arterial Blood Ionized Calcium Urine WBC (Auto) 03/14/20 03/15/20 03/15/20 23:57 05:46 08:06 WBC 19.7 H RBC 3.29 L Hgb 9.1 L Hct 28.0 L MCV MCH RDW 15.9 H Plt Count Lymph % (Auto) [place] % (Auto) Eos % (Auto) Lymph # (Auto) [place] # (Auto) Eos # (Auto) Seg Neutrophils % Seg Neuts % (Manual) Lymphocytes % (Manual) Monocytes % (Manual) Basophils % (Manual) Seg Neutrophils # Seg Neutrophils # Man Lymphocytes # (Manual) Monocytes # (Manual) Eosinophils # (Manual) Basophils # (Manual) PT INR D-Dimer ABG pH POC ABG pCO2 POC ABG pO2 ABG pO2 ABG HCO3 ABG O2 Saturation ABG Base Excess ABG Hemoglobin ABG Oxyhemoglobin ABG Potassium ABG Glucose Oxyhemoglobin Carboxyhemoglobin Sodium Potassium Chloride Carbon Dioxide BUN Creatinine Glucose POC Glucose 157 H 118 H Calcium Ferritin Total Bilirubin Alkaline Phosphatase Lactate Dehydrogenase Total Creatine Kinase CK-MB (CK-2) Rel Index Troponin T C-Reactive Protein Total Protein Albumin Prealbumin LDL Cholesterol Direct HDL Cholesterol Arterial Blood Glucose Arterial Blood Ionized Calcium Urine WBC (Auto) 03/15/20 03/15/20 03/15/20 08:06 12:44 18:09 WBC RBC Hgb Hct MCV MCH RDW Plt Count Lymph % (Auto) [place] % (Auto) Eos % (Auto) Lymph # (Auto) [place] # (Auto) Eos # (Auto) Seg Neutrophils % Seg Neuts % (Manual) Lymphocytes % (Manual) Monocytes % (Manual) Basophils % (Manual) Seg Neutrophils # Seg Neutrophils # Man Lymphocytes # (Manual) Monocytes # (Manual) Eosinophils # (Manual) Basophils # (Manual) PT INR D-Dimer ABG pH POC ABG pCO2 POC ABG pO2 ABG pO2 ABG HCO3 ABG O2 Saturation ABG Base Excess ABG Hemoglobin ABG Oxyhemoglobin ABG Potassium ABG Glucose Oxyhemoglobin Carboxyhemoglobin Sodium 136 L Potassium Chloride 93.6 L Carbon Dioxide 37 H BUN Creatinine < 0.2 L Glucose 132 H POC Glucose 151 H 164 H Calcium Ferritin Total Bilirubin Alkaline Phosphatase Lactate Dehydrogenase Total Creatine Kinase CK-MB (CK-2) Rel Index Troponin T C-Reactive Protein Total Protein Albumin Prealbumin LDL Cholesterol Direct HDL Cholesterol Arterial Blood Glucose Arterial Blood Ionized Calcium Urine WBC (Auto) 03/15/20 03/16/20 03/16/20 23:26 05:39 11:58 WBC RBC Hgb Hct MCV MCH RDW Plt Count Lymph % (Auto) [place] % (Auto) Eos % (Auto) Lymph # (Auto) [place] # (Auto) Eos # (Auto) Seg Neutrophils % Seg Neuts % (Manual) Lymphocytes % (Manual) Monocytes % (Manual) Basophils % (Manual) Seg Neutrophils # Seg Neutrophils # Man Lymphocytes # (Manual) Monocytes # (Manual) Eosinophils # (Manual) Basophils # (Manual) PT INR D-Dimer ABG pH POC ABG pCO2 POC ABG pO2 ABG pO2 ABG HCO3 ABG O2 Saturation ABG Base Excess ABG Hemoglobin ABG Oxyhemoglobin ABG Potassium ABG Glucose Oxyhemoglobin Carboxyhemoglobin Sodium Potassium Chloride Carbon Dioxide BUN Creatinine Glucose POC Glucose 136 H 116 H 109 H Calcium Ferritin Total Bilirubin Alkaline Phosphatase Lactate Dehydrogenase Total Creatine Kinase CK-MB (CK-2) Rel Index Troponin T C-Reactive Protein Total Protein Albumin Prealbumin LDL Cholesterol Direct HDL Cholesterol Arterial Blood Glucose Arterial Blood Ionized Calcium Urine WBC (Auto) 03/16/20 03/17/20 03/17/20 23:56 04:40 04:40 WBC 18.0 H RBC 3.33 L Hgb 9.5 L Hct 28.8 L MCV MCH RDW 16.4 H Plt Count 499 H Lymph % (Auto) [place] % (Auto) Eos % (Auto) Lymph # (Auto) [place] # (Auto) Eos # (Auto) Seg Neutrophils % Seg Neuts % (Manual) 82.0 H Lymphocytes % (Manual) 8.0 L Monocytes % (Manual) Basophils % (Manual) Seg Neutrophils # Seg Neutrophils # Man 14.8 H Lymphocytes # (Manual) Monocytes # (Manual) 1.3 H Eosinophils # (Manual) Basophils # (Manual) 0.2 H PT INR D-Dimer ABG pH POC ABG pCO2 POC ABG pO2 ABG pO2 ABG HCO3 ABG O2 Saturation ABG Base Excess ABG Hemoglobin ABG Oxyhemoglobin ABG Potassium ABG Glucose Oxyhemoglobin Carboxyhemoglobin Sodium Potassium Chloride 97.7 L Carbon Dioxide 32 H BUN Creatinine < 0.2 L Glucose 114 H POC Glucose 131 H Calcium Ferritin Total Bilirubin Alkaline Phosphatase Lactate Dehydrogenase Total Creatine Kinase CK-MB (CK-2) Rel Index Troponin T C-Reactive Protein Total Protein Albumin Prealbumin LDL Cholesterol Direct HDL Cholesterol Arterial Blood Glucose Arterial Blood Ionized Calcium Urine WBC (Auto) 03/18/20 03/18/20 03/18/20 00:21 05:21 11:55 WBC RBC Hgb Hct MCV MCH RDW Plt Count Lymph % (Auto) [place] % (Auto) Eos % (Auto) Lymph # (Auto) [place] # (Auto) Eos # (Auto) Seg Neutrophils % Seg Neuts % (Manual) Lymphocytes % (Manual) Monocytes % (Manual) Basophils % (Manual) Seg Neutrophils # Seg Neutrophils # Man Lymphocytes # (Manual) Monocytes # (Manual) Eosinophils # (Manual) Basophils # (Manual) PT INR D-Dimer ABG pH POC ABG pCO2 POC ABG pO2 ABG pO2 ABG HCO3 ABG O2 Saturation ABG Base Excess ABG Hemoglobin ABG Oxyhemoglobin ABG Potassium ABG Glucose Oxyhemoglobin Carboxyhemoglobin Sodium Potassium Chloride Carbon Dioxide BUN Creatinine Glucose POC Glucose 124 H 138 H 119 H Calcium Ferritin Total Bilirubin Alkaline Phosphatase Lactate Dehydrogenase Total Creatine Kinase CK-MB (CK-2) Rel Index Troponin T C-Reactive Protein Total Protein Albumin Prealbumin LDL Cholesterol Direct HDL Cholesterol Arterial Blood Glucose Arterial Blood Ionized Calcium Urine WBC (Auto) 11/21/20 11/21/20 11/22/20 17:03 23:58 05:24 WBC RBC Hgb Hct MCV MCH RDW Plt Count Lymph % (Auto) [place] % (Auto) Eos % (Auto) Lymph # (Auto) [place] # (Auto) Eos # (Auto) Seg Neutrophils % Seg Neuts % (Manual) Lymphocytes % (Manual) Monocytes % (Manual) Basophils % (Manual) Seg Neutrophils # Seg Neutrophils # Man Lymphocytes # (Manual) Monocytes # (Manual) Eosinophils # (Manual) Basophils # (Manual) PT INR D-Dimer ABG pH POC ABG pCO2 POC ABG pO2 ABG pO2 ABG HCO3 ABG O2 Saturation ABG Base Excess ABG Hemoglobin ABG Oxyhemoglobin ABG Potassium ABG Glucose Oxyhemoglobin Carboxyhemoglobin Sodium Potassium Chloride Carbon Dioxide BUN Creatinine Glucose POC Glucose 128 H 128 H 115 H Calcium Ferritin Total Bilirubin Alkaline Phosphatase Lactate Dehydrogenase Total Creatine Kinase CK-MB (CK-2) Rel Index Troponin T C-Reactive Protein Total Protein Albumin Prealbumin LDL Cholesterol Direct HDL Cholesterol Arterial Blood Glucose Arterial Blood Ionized Calcium Urine WBC (Auto) 03/19/20 03/19/20 03/19/20 08:05 08:05 11:56 WBC 16.8 H RBC 3.36 L Hgb 9.4 L Hct 28.8 L MCV MCH RDW 17.4 H Plt Count 567 H Lymph % (Auto) 7.8 L [place] % (Auto) Eos % (Auto) Lymph # (Auto) [place] # (Auto) 1.2 H Eos # (Auto) Seg Neutrophils % 83.5 H Seg Neuts % (Manual) Lymphocytes % (Manual) Monocytes % (Manual) Basophils % (Manual) Seg Neutrophils # 14.1 H Seg Neutrophils # Man Lymphocytes # (Manual) Monocytes # (Manual) Eosinophils # (Manual) Basophils # (Manual) PT INR D-Dimer ABG pH POC ABG pCO2 POC ABG pO2 ABG pO2 ABG HCO3 ABG O2 Saturation ABG Base Excess ABG Hemoglobin ABG Oxyhemoglobin ABG Potassium ABG Glucose Oxyhemoglobin Carboxyhemoglobin Sodium Potassium Chloride Carbon Dioxide 36 H BUN Creatinine < 0.2 L Glucose 135 H POC Glucose 128 H Calcium Ferritin Total Bilirubin Alkaline Phosphatase Lactate Dehydrogenase Total Creatine Kinase CK-MB (CK-2) Rel Index Troponin T C-Reactive Protein Total Protein Albumin Prealbumin LDL Cholesterol Direct HDL Cholesterol Arterial Blood Glucose Arterial Blood Ionized Calcium Urine WBC (Auto) 11/22/20 11/23/20 11/23/20 23:59 05:12 16:52 WBC RBC Hgb Hct MCV MCH RDW Plt Count Lymph % (Auto) [place] % (Auto) Eos % (Auto) Lymph # (Auto) [place] # (Auto) Eos # (Auto) Seg Neutrophils % Seg Neuts % (Manual) Lymphocytes % (Manual) Monocytes % (Manual) Basophils % (Manual) Seg Neutrophils # Seg Neutrophils # Man Lymphocytes # (Manual) Monocytes # (Manual) Eosinophils # (Manual) Basophils # (Manual) PT INR D-Dimer ABG pH POC ABG pCO2 POC ABG pO2 ABG pO2 ABG HCO3 ABG O2 Saturation ABG Base Excess ABG Hemoglobin ABG Oxyhemoglobin ABG Potassium ABG Glucose Oxyhemoglobin Carboxyhemoglobin Sodium Potassium Chloride Carbon Dioxide BUN Creatinine Glucose POC Glucose 120 H 131 H 124 H Calcium Ferritin Total Bilirubin Alkaline Phosphatase Lactate Dehydrogenase Total Creatine Kinase CK-MB (CK-2) Rel Index Troponin T C-Reactive Protein Total Protein Albumin Prealbumin LDL Cholesterol Direct HDL Cholesterol Arterial Blood Glucose Arterial Blood Ionized Calcium Urine WBC (Auto) 03/20/20 03/21/20 03/21/20 23:35 04:50 07:35 WBC 15.2 H RBC 3.39 L Hgb 9.4 L Hct 29.4 L MCV MCH RDW 17.6 H Plt Count 518 H Lymph % (Auto) [place] % (Auto) Eos % (Auto) Lymph # (Auto) [place] # (Auto) Eos # (Auto) Seg Neutrophils % Seg Neuts % (Manual) 83.0 H Lymphocytes % (Manual) 10.0 L Monocytes % (Manual) Basophils % (Manual) 2.0 H Seg Neutrophils # Seg Neutrophils # Man 12.6 H Lymphocytes # (Manual) Monocytes # (Manual) Eosinophils # (Manual) Basophils # (Manual) 0.3 H PT INR D-Dimer ABG pH POC ABG pCO2 POC ABG pO2 ABG pO2 ABG HCO3 ABG O2 Saturation ABG Base Excess ABG Hemoglobin ABG Oxyhemoglobin ABG Potassium ABG Glucose Oxyhemoglobin Carboxyhemoglobin Sodium Potassium Chloride Carbon Dioxide BUN Creatinine Glucose POC Glucose 125 H 127 H Calcium Ferritin Total Bilirubin Alkaline Phosphatase Lactate Dehydrogenase Total Creatine Kinase CK-MB (CK-2) Rel Index Troponin T C-Reactive Protein Total Protein Albumin Prealbumin LDL Cholesterol Direct HDL Cholesterol Arterial Blood Glucose Arterial Blood Ionized Calcium Urine WBC (Auto) 1103/21/20 03/21/20 07:35 11:45 17:22 WBC RBC Hgb Hct MCV MCH RDW Plt Count Lymph % (Auto) [place] % (Auto) Eos % (Auto) Lymph # (Auto) [place] # (Auto) Eos # (Auto) Seg Neutrophils % Seg Neuts % (Manual) Lymphocytes % (Manual) Monocytes % (Manual) Basophils % (Manual) Seg Neutrophils # Seg Neutrophils # Man Lymphocytes # (Manual) Monocytes # (Manual) Eosinophils # (Manual) Basophils # (Manual) PT INR D-Dimer ABG pH POC ABG pCO2 POC ABG pO2 ABG pO2 ABG HCO3 ABG O2 Saturation ABG Base Excess ABG Hemoglobin ABG Oxyhemoglobin ABG Potassium ABG Glucose Oxyhemoglobin Carboxyhemoglobin Sodium 136 L Potassium Chloride 97.7 L Carbon Dioxide 32 H BUN Creatinine < 0.2 L Glucose 103 H POC Glucose 126 H 120 H Calcium Ferritin Total Bilirubin Alkaline Phosphatase Lactate Dehydrogenase Total Creatine Kinase CK-MB (CK-2) Rel Index Troponin T C-Reactive Protein Total Protein Albumin Prealbumin LDL Cholesterol Direct HDL Cholesterol Arterial Blood Glucose Arterial Blood Ionized Calcium Urine WBC (Auto) 03/22/20 03/22/20 03/22/20 05:09 06:34 06:34 WBC 17.5 H RBC 3.52 L Hgb 10.0 L Hct 30.7 L MCV MCH RDW 17.5 H Plt Count 499 H Lymph % (Auto) [place] % (Auto) Eos % (Auto) Lymph # (Auto) [place] # (Auto) Eos # (Auto) Seg Neutrophils % Seg Neuts % (Manual) 80.0 H Lymphocytes % (Manual) 10.0 L Monocytes % (Manual) Basophils % (Manual) Seg Neutrophils # Seg Neutrophils # Man 14.0 H Lymphocytes # (Manual) Monocytes # (Manual) Eosinophils # (Manual) Basophils # (Manual) PT INR D-Dimer ABG pH POC ABG pCO2 POC ABG pO2 ABG pO2 ABG HCO3 ABG O2 Saturation ABG Base Excess ABG Hemoglobin ABG Oxyhemoglobin ABG Potassium ABG Glucose Oxyhemoglobin Carboxyhemoglobin Sodium Potassium Chloride 96.6 L Carbon Dioxide 38 H BUN Creatinine < 0.2 L Glucose 139 H POC Glucose 125 H Calcium Ferritin Total Bilirubin Alkaline Phosphatase Lactate Dehydrogenase Total Creatine Kinase CK-MB (CK-2) Rel Index Troponin T C-Reactive Protein Total Protein Albumin Prealbumin LDL Cholesterol Direct HDL Cholesterol Arterial Blood Glucose Arterial Blood Ionized Calcium Urine WBC (Auto) 03/22/20 03/22/20 03/22/20 11:45 18:00 23:32 WBC RBC Hgb Hct MCV MCH RDW Plt Count Lymph % (Auto) [place] % (Auto) Eos % (Auto) Lymph # (Auto) [place] # (Auto) Eos # (Auto) Seg Neutrophils % Seg Neuts % (Manual) Lymphocytes % (Manual) Monocytes % (Manual) Basophils % (Manual) Seg Neutrophils # Seg Neutrophils # Man Lymphocytes # (Manual) Monocytes # (Manual) Eosinophils # (Manual) Basophils # (Manual) PT INR D-Dimer ABG pH POC ABG pCO2 POC ABG pO2 ABG pO2 ABG HCO3 ABG O2 Saturation ABG Base Excess ABG Hemoglobin ABG Oxyhemoglobin ABG Potassium ABG Glucose Oxyhemoglobin Carboxyhemoglobin Sodium Potassium Chloride Carbon Dioxide BUN Creatinine Glucose POC Glucose 135 H 133 H Calcium Ferritin Total Bilirubin Alkaline Phosphatase Lactate Dehydrogenase Total Creatine Kinase CK-MB (CK-2) Rel Index Troponin T 0.113 H* C-Reactive Protein Total Protein Albumin Prealbumin LDL Cholesterol Direct HDL Cholesterol Arterial Blood Glucose Arterial Blood Ionized Calcium Urine WBC (Auto) 03/23/20 03/23/20 03/23/20 01:47 06:21 07:57 WBC RBC Hgb Hct MCV MCH RDW Plt Count Lymph % (Auto) [place] % (Auto) Eos % (Auto) Lymph # (Auto) [place] # (Auto) Eos # (Auto) Seg Neutrophils % Seg Neuts % (Manual) Lymphocytes % (Manual) Monocytes % (Manual) Basophils % (Manual) Seg Neutrophils # Seg Neutrophils # Man Lymphocytes # (Manual) Monocytes # (Manual) Eosinophils # (Manual) Basophils # (Manual) PT INR D-Dimer ABG pH POC ABG pCO2 POC ABG pO2 ABG pO2 ABG HCO3 ABG O2 Saturation ABG Base Excess ABG Hemoglobin ABG Oxyhemoglobin ABG Potassium ABG Glucose Oxyhemoglobin Carboxyhemoglobin Sodium Potassium Chloride Carbon Dioxide BUN Creatinine Glucose POC Glucose 130 H Calcium Ferritin Total Bilirubin Alkaline Phosphatase Lactate Dehydrogenase Total Creatine Kinase CK-MB (CK-2) Rel Index Troponin T 0.143 H* D 0.105 H* D C-Reactive Protein Total Protein Albumin Prealbumin LDL Cholesterol Direct HDL Cholesterol Arterial Blood Glucose Arterial Blood Ionized Calcium Urine WBC (Auto) 03/23/20 03/24/20 03/24/20 12:02 05:33 07:15 WBC 18.0 H RBC Hgb 11.0 L Hct 34.0 L MCV MCH RDW 17.4 H Plt Count 520 H Lymph % (Auto) [place] % (Auto) Eos % (Auto) Lymph # (Auto) [place] # (Auto) Eos # (Auto) Seg Neutrophils % Seg Neuts % (Manual) 88.0 H Lymphocytes % (Manual) 7.0 L Monocytes % (Manual) Basophils % (Manual) Seg Neutrophils # Seg Neutrophils # Man 15.8 H Lymphocytes # (Manual) Monocytes # (Manual) Eosinophils # (Manual) Basophils # (Manual) PT INR D-Dimer ABG pH POC ABG pCO2 POC ABG pO2 ABG pO2 ABG HCO3 ABG O2 Saturation ABG Base Excess ABG Hemoglobin ABG Oxyhemoglobin ABG Potassium ABG Glucose Oxyhemoglobin Carboxyhemoglobin Sodium Potassium Chloride Carbon Dioxide BUN Creatinine Glucose POC Glucose 137 H 112 H Calcium Ferritin Total Bilirubin Alkaline Phosphatase Lactate Dehydrogenase Total Creatine Kinase CK-MB (CK-2) Rel Index Troponin T C-Reactive Protein Total Protein Albumin Prealbumin LDL Cholesterol Direct HDL Cholesterol Arterial Blood Glucose Arterial Blood Ionized Calcium Urine WBC (Auto) 03/24/20 03/24/20 03/24/20 07:15 11:22 23:30 WBC RBC Hgb Hct MCV MCH RDW Plt Count Lymph % (Auto) [place] % (Auto) Eos % (Auto) Lymph # (Auto) [place] # (Auto) Eos # (Auto) Seg Neutrophils % Seg Neuts % (Manual) Lymphocytes % (Manual) Monocytes % (Manual) Basophils % (Manual) Seg Neutrophils # Seg Neutrophils # Man Lymphocytes # (Manual) Monocytes # (Manual) Eosinophils # (Manual) Basophils # (Manual) PT INR D-Dimer ABG pH POC ABG pCO2 POC ABG pO2 ABG pO2 ABG HCO3 ABG O2 Saturation ABG Base Excess ABG Hemoglobin ABG Oxyhemoglobin ABG Potassium ABG Glucose Oxyhemoglobin Carboxyhemoglobin Sodium Potassium Chloride 96.6 L Carbon Dioxide 38 H BUN Creatinine < 0.2 L Glucose 141 H POC Glucose 130 H 120 H Calcium Ferritin Total Bilirubin Alkaline Phosphatase Lactate Dehydrogenase Total Creatine Kinase CK-MB (CK-2) Rel Index Troponin T C-Reactive Protein Total Protein Albumin Prealbumin LDL Cholesterol Direct HDL Cholesterol Arterial Blood Glucose Arterial Blood Ionized Calcium Urine WBC (Auto) 03/25/20 03/25/2003/25/20 05:48 17:53 23:18 WBC RBC Hgb Hct MCV MCH RDW Plt Count Lymph % (Auto) [place] % (Auto) Eos % (Auto) Lymph # (Auto) [place] # (Auto) Eos # (Auto) Seg Neutrophils % Seg Neuts % (Manual) Lymphocytes % (Manual) Monocytes % (Manual) Basophils % (Manual) Seg Neutrophils # Seg Neutrophils # Man Lymphocytes # (Manual) Monocytes # (Manual) Eosinophils # (Manual) Basophils # (Manual) PT INR D-Dimer ABG pH POC ABG pCO2 POC ABG pO2 ABG pO2 ABG HCO3 ABG O2 Saturation ABG Base Excess ABG Hemoglobin ABG Oxyhemoglobin ABG Potassium ABG Glucose Oxyhemoglobin Carboxyhemoglobin Sodium Potassium Chloride Carbon Dioxide BUN Creatinine Glucose POC Glucose 124 H 109 H 131 H Calcium Ferritin Total Bilirubin Alkaline Phosphatase Lactate Dehydrogenase Total Creatine Kinase CK-MB (CK-2) Rel Index Troponin T C-Reactive Protein Total Protein Albumin Prealbumin LDL Cholesterol Direct HDL Cholesterol Arterial Blood Glucose Arterial Blood Ionized Calcium Urine WBC (Auto) 03/26/20 03/26/20 03/26/20 05:21 08:49 08:49 WBC 19.7 H RBC Hgb 10.7 L Hct 33.5 L MCV MCH 27 L RDW 17.1 H Plt Count 480 H Lymph % (Auto) 5.7 L [place] % (Auto) Eos % (Auto) Lymph # (Auto) 1.1 L [place] # (Auto) 1.2 H Eos # (Auto) Seg Neutrophils % 87.7 H Seg Neuts % (Manual) Lymphocytes % (Manual) Monocytes % (Manual) Basophils % (Manual) Seg Neutrophils # 17.2 H Seg Neutrophils # Man Lymphocytes # (Manual) Monocytes # (Manual) Eosinophils # (Manual) Basophils # (Manual) PT INR D-Dimer ABG pH POC ABG pCO2 POC ABG pO2 ABG pO2 ABG HCO3 ABG O2 Saturation ABG Base Excess ABG Hemoglobin ABG Oxyhemoglobin ABG Potassium ABG Glucose Oxyhemoglobin Carboxyhemoglobin Sodium Potassium Chloride 97.2 L Carbon Dioxide 36 H BUN Creatinine < 0.2 L Glucose 127 H POC Glucose 116 H Calcium Ferritin Total Bilirubin Alkaline Phosphatase Lactate Dehydrogenase Total Creatine Kinase CK-MB (CK-2) Rel Index Troponin T C-Reactive Protein Total Protein Albumin Prealbumin LDL Cholesterol Direct HDL Cholesterol Arterial Blood Glucose Arterial Blood Ionized Calcium Urine WBC (Auto) 03/26/20 03/26/20 03/26/20 11:38 18:44 23:06 WBC RBC Hgb Hct MCV MCH RDW Plt Count Lymph % (Auto) [place] % (Auto) Eos % (Auto) Lymph # (Auto) [place] # (Auto) Eos # (Auto) Seg Neutrophils % Seg Neuts % (Manual) Lymphocytes % (Manual) Monocytes % (Manual) Basophils % (Manual) Seg Neutrophils # Seg Neutrophils # Man Lymphocytes # (Manual) Monocytes # (Manual) Eosinophils # (Manual) Basophils # (Manual) PT INR D-Dimer ABG pH POC ABG pCO2 POC ABG pO2 ABG pO2 ABG HCO3 ABG O2 Saturation ABG Base Excess ABG Hemoglobin ABG Oxyhemoglobin ABG Potassium ABG Glucose Oxyhemoglobin Carboxyhemoglobin Sodium Potassium Chloride Carbon Dioxide BUN Creatinine Glucose POC Glucose 120 H 111 H 134 H Calcium Ferritin Total Bilirubin Alkaline Phosphatase Lactate Dehydrogenase Total Creatine Kinase CK-MB (CK-2) Rel Index Troponin T C-Reactive Protein Total Protein Albumin Prealbumin LDL Cholesterol Direct HDL Cholesterol Arterial Blood Glucose Arterial Blood Ionized Calcium Urine WBC (Auto) 03/27/20 03/27/20 03/27/20 05:41 05:59 05:59 WBC 18.6 H RBC Hgb 10.1 L Hct 31.4 L MCV MCH RDW 17.2 H Plt Count Lymph % (Auto) 8.0 L [place] % (Auto) Eos % (Auto) Lymph # (Auto) [place] # (Auto) 1.2 H Eos # (Auto) Seg Neutrophils % 84.7 H Seg Neuts % (Manual) Lymphocytes % (Manual) Monocytes % (Manual) Basophils % (Manual) Seg Neutrophils # 15.8 H Seg Neutrophils # Man Lymphocytes # (Manual) Monocytes # (Manual) Eosinophils # (Manual) Basophils # (Manual) PT INR D-Dimer ABG pH POC ABG pCO2 POC ABG pO2 ABG pO2 ABG HCO3 ABG O2 Saturation ABG Base Excess ABG Hemoglobin ABG Oxyhemoglobin ABG Potassium ABG Glucose Oxyhemoglobin Carboxyhemoglobin Sodium Potassium Chloride Carbon Dioxide 34 H BUN Creatinine < 0.2 L Glucose 127 H POC Glucose 129 H Calcium Ferritin Total Bilirubin Alkaline Phosphatase Lactate Dehydrogenase Total Creatine Kinase CK-MB (CK-2) Rel Index Troponin T C-Reactive Protein Total Protein Albumin Prealbumin LDL Cholesterol Direct HDL Cholesterol Arterial Blood Glucose Arterial Blood Ionized Calcium Urine WBC (Auto) 03/27/20 03/27/20 03/28/20 17:28 23:22 05:23 WBC RBC Hgb Hct MCV MCH RDW Plt Count Lymph % (Auto) [place] % (Auto) Eos % (Auto) Lymph # (Auto) [place] # (Auto) Eos # (Auto) Seg Neutrophils % Seg Neuts % (Manual) Lymphocytes % (Manual) Monocytes % (Manual) Basophils % (Manual) Seg Neutrophils # Seg Neutrophils # Man Lymphocytes # (Manual) Monocytes # (Manual) Eosinophils # (Manual) Basophils # (Manual) PT INR D-Dimer ABG pH POC ABG pCO2 POC ABG pO2 ABG pO2 ABG HCO3 ABG O2 Saturation ABG Base Excess ABG Hemoglobin ABG Oxyhemoglobin ABG Potassium ABG Glucose Oxyhemoglobin Carboxyhemoglobin Sodium Potassium Chloride Carbon Dioxide BUN Creatinine Glucose POC Glucose 108 H 119 H 129 H Calcium Ferritin Total Bilirubin Alkaline Phosphatase Lactate Dehydrogenase Total Creatine Kinase CK-MB (CK-2) Rel Index Troponin T C-Reactive Protein Total Protein Albumin Prealbumin LDL Cholesterol Direct HDL Cholesterol Arterial Blood Glucose Arterial Blood Ionized Calcium Urine WBC (Auto) 03/28/20 03/28/20 03/28/20 10:28 10:28 11:36 WBC 23.6 H RBC 3.62 L Hgb 10.0 L Hct 30.8 L MCV MCH RDW 16.4 H Plt Count Lymph % (Auto) [place] % (Auto) Eos % (Auto) Lymph # (Auto) [place] # (Auto) Eos # (Auto) Seg Neutrophils % Seg Neuts % (Manual) 89.0 H Lymphocytes % (Manual) 5.0 L Monocytes % (Manual) Basophils % (Manual) Seg Neutrophils # Seg Neutrophils # Man 21.0 H Lymphocytes # (Manual) Monocytes # (Manual) 1.2 H Eosinophils # (Manual) Basophils # (Manual) 0.2 H PT INR D-Dimer ABG pH POC ABG pCO2 POC ABG pO2 ABG pO2 ABG HCO3 ABG O2 Saturation ABG Base Excess ABG Hemoglobin ABG Oxyhemoglobin ABG Potassium ABG Glucose Oxyhemoglobin Carboxyhemoglobin Sodium 134 L Potassium Chloride 94.2 L Carbon Dioxide 35 H BUN Creatinine < 0.2 L Glucose 134 H POC Glucose Calcium Ferritin Total Bilirubin Alkaline Phosphatase Lactate Dehydrogenase Total Creatine Kinase CK-MB (CK-2) Rel Index Troponin T C-Reactive Protein Total Protein Albumin Prealbumin LDL Cholesterol Direct HDL Cholesterol Arterial Blood Glucose Arterial Blood Ionized Calcium Urine WBC (Auto) 39.0 H 03/28/20 03/28/20 03/28/20 11:51 17:08 17:17 WBC RBC Hgb Hct MCV MCH RDW Plt Count Lymph % (Auto) [place] % (Auto) Eos % (Auto) Lymph # (Auto) [place] # (Auto) Eos # (Auto) Seg Neutrophils % Seg Neuts % (Manual) Lymphocytes % (Manual) Monocytes % (Manual) Basophils % (Manual) Seg Neutrophils # Seg Neutrophils # Man Lymphocytes # (Manual) Monocytes # (Manual) Eosinophils # (Manual) Basophils # (Manual) PT INR D-Dimer ABG pH POC ABG pCO2 POC ABG pO2 ABG pO2 ABG HCO3 ABG O2 Saturation ABG Base Excess ABG Hemoglobin ABG Oxyhemoglobin ABG Potassium ABG Glucose Oxyhemoglobin Carboxyhemoglobin Sodium Potassium Chloride Carbon Dioxide BUN Creatinine Glucose POC Glucose 123 H 112 H Calcium Ferritin Total Bilirubin Alkaline Phosphatase Lactate Dehydrogenase Total Creatine Kinase 47 L CK-MB (CK-2) Rel Index 4.6 H Troponin T 0.090 H C-Reactive Protein Total Protein Albumin Prealbumin LDL Cholesterol Direct HDL Cholesterol Arterial Blood Glucose Arterial Blood Ionized Calcium Urine WBC (Auto) 03/28/20 03/29/20 03/29/20 23:22 05:22 10:58 WBC RBC Hgb Hct MCV MCH RDW Plt Count Lymph % (Auto) [place] % (Auto) Eos % (Auto) Lymph # (Auto) [place] # (Auto) Eos # (Auto) Seg Neutrophils % Seg Neuts % (Manual) Lymphocytes % (Manual) Monocytes % (Manual) Basophils % (Manual) Seg Neutrophils # Seg Neutrophils # Man Lymphocytes # (Manual) Monocytes # (Manual) Eosinophils # (Manual) Basophils # (Manual) PT INR D-Dimer ABG pH POC ABG pCO2 POC ABG pO2 ABG pO2 ABG HCO3 ABG O2 Saturation ABG Base Excess ABG Hemoglobin ABG Oxyhemoglobin ABG Potassium ABG Glucose Oxyhemoglobin Carboxyhemoglobin Sodium Potassium Chloride Carbon Dioxide BUN Creatinine Glucose POC Glucose 122 H 116 H 133 H Calcium Ferritin Total Bilirubin Alkaline Phosphatase Lactate Dehydrogenase Total Creatine Kinase CK-MB (CK-2) Rel Index Troponin T C-Reactive Protein Total Protein Albumin Prealbumin LDL Cholesterol Direct HDL Cholesterol Arterial Blood Glucose Arterial Blood Ionized Calcium Urine WBC (Auto) 03/29/20 03/29/20 03/30/20 17:18 23:14 04:57 WBC RBC Hgb Hct MCV MCH RDW Plt Count Lymph % (Auto) [place] % (Auto) Eos % (Auto) Lymph # (Auto) [place] # (Auto) Eos # (Auto) Seg Neutrophils % Seg Neuts % (Manual) Lymphocytes % (Manual) Monocytes % (Manual) Basophils % (Manual) Seg Neutrophils # Seg Neutrophils # Man Lymphocytes # (Manual) Monocytes # (Manual) Eosinophils # (Manual) Basophils # (Manual) PT INR D-Dimer ABG pH POC ABG pCO2 POC ABG pO2 ABG pO2 ABG HCO3 ABG O2 Saturation ABG Base Excess ABG Hemoglobin ABG Oxyhemoglobin ABG Potassium ABG Glucose Oxyhemoglobin Carboxyhemoglobin Sodium Potassium Chloride Carbon Dioxide BUN Creatinine Glucose POC Glucose 111 H 114 H 130 H Calcium Ferritin Total Bilirubin Alkaline Phosphatase Lactate Dehydrogenase Total Creatine Kinase CK-MB (CK-2) Rel Index Troponin T C-Reactive Protein Total Protein Albumin Prealbumin LDL Cholesterol Direct HDL Cholesterol Arterial Blood Glucose Arterial Blood Ionized Calcium Urine WBC (Auto) 03/30/20 03/30/20 03/30/20 11:38 14:47 14:47 WBC 19.9 H RBC Hgb 10.9 L Hct 34.4 L MCV MCH 27 L RDW 16.5 H Plt Count 441 H Lymph % (Auto) 6.4 L [place] % (Auto) Eos % (Auto) Lymph # (Auto) [place] # (Auto) 1.4 H Eos # (Auto) Seg Neutrophils % 86.1 H Seg Neuts % (Manual) Lymphocytes % (Manual) Monocytes % (Manual) Basophils % (Manual) Seg Neutrophils # 17.1 H Seg Neutrophils # Man Lymphocytes # (Manual) Monocytes # (Manual) Eosinophils # (Manual) Basophils # (Manual) PT INR D-Dimer ABG pH POC ABG pCO2 POC ABG pO2 ABG pO2 ABG HCO3 ABG O2 Saturation ABG Base Excess ABG Hemoglobin ABG Oxyhemoglobin ABG Potassium ABG Glucose Oxyhemoglobin Carboxyhemoglobin Sodium 133 L Potassium Chloride 94.6 L Carbon Dioxide 33 H BUN Creatinine < 0.2 L Glucose 194 H POC Glucose 139 H Calcium Ferritin Total Bilirubin Alkaline Phosphatase Lactate Dehydrogenase Total Creatine Kinase CK-MB (CK-2) Rel Index Troponin T C-Reactive Protein Total Protein Albumin 2.8 L Prealbumin LDL Cholesterol Direct HDL Cholesterol Arterial Blood Glucose Arterial Blood Ionized Calcium Urine WBC (Auto) 03/30/20 03/31/20 03/31/20 17:07 05:02 15:21 WBC RBC Hgb Hct MCV MCH RDW Plt Count Lymph % (Auto) [place] % (Auto) Eos % (Auto) Lymph # (Auto) [place] # (Auto) Eos # (Auto) Seg Neutrophils % Seg Neuts % (Manual) Lymphocytes % (Manual) Monocytes % (Manual) Basophils % (Manual) Seg Neutrophils # Seg Neutrophils # Man Lymphocytes # (Manual) Monocytes # (Manual) Eosinophils # (Manual) Basophils # (Manual) PT INR D-Dimer ABG pH POC ABG pCO2 POC ABG pO2 ABG pO2 ABG HCO3 ABG O2 Saturation ABG Base Excess ABG Hemoglobin ABG Oxyhemoglobin ABG Potassium ABG Glucose Oxyhemoglobin Carboxyhemoglobin Sodium Potassium Chloride Carbon Dioxide BUN Creatinine Glucose POC Glucose 163 H 108 H 110 H Calcium Ferritin Total Bilirubin Alkaline Phosphatase Lactate Dehydrogenase Total Creatine Kinase CK-MB (CK-2) Rel Index Troponin T C-Reactive Protein Total Protein Albumin Prealbumin LDL Cholesterol Direct HDL Cholesterol Arterial Blood Glucose Arterial Blood Ionized Calcium Urine WBC (Auto) 03/31/20 03/31/20 04/01/20 17:58 23:19 05:09 WBC RBC Hgb Hct MCV MCH RDW Plt Count Lymph % (Auto) [place] % (Auto) Eos % (Auto) Lymph # (Auto) [place] # (Auto) Eos # (Auto) Seg Neutrophils % Seg Neuts % (Manual) Lymphocytes % (Manual) Monocytes % (Manual) Basophils % (Manual) Seg Neutrophils # Seg Neutrophils # Man Lymphocytes # (Manual) Monocytes # (Manual) Eosinophils # (Manual) Basophils # (Manual) PT INR D-Dimer ABG pH POC ABG pCO2 POC ABG pO2 ABG pO2 ABG HCO3 ABG O2 Saturation ABG Base Excess ABG Hemoglobin ABG Oxyhemoglobin ABG Potassium ABG Glucose Oxyhemoglobin Carboxyhemoglobin Sodium Potassium Chloride Carbon Dioxide BUN Creatinine Glucose POC Glucose 110 H 131 H 124 H Calcium Ferritin Total Bilirubin Alkaline Phosphatase Lactate Dehydrogenase Total Creatine Kinase CK-MB (CK-2) Rel Index Troponin T C-Reactive Protein Total Protein Albumin Prealbumin LDL Cholesterol Direct HDL Cholesterol Arterial Blood Glucose Arterial Blood Ionized Calcium Urine WBC (Auto) 04/01/20 04/01/20 04/01/20 11:50 17:01 23:21 WBC RBC Hgb Hct MCV MCH RDW Plt Count Lymph % (Auto) [place] % (Auto) Eos % (Auto) Lymph # (Auto) [place] # (Auto) Eos # (Auto) Seg Neutrophils % Seg Neuts % (Manual) Lymphocytes % (Manual) Monocytes % (Manual) Basophils % (Manual) Seg Neutrophils # Seg Neutrophils # Man Lymphocytes # (Manual) Monocytes # (Manual) Eosinophils # (Manual) Basophils # (Manual) PT INR D-Dimer ABG pH POC ABG pCO2 POC ABG pO2 ABG pO2 ABG HCO3 ABG O2 Saturation ABG Base Excess ABG Hemoglobin ABG Oxyhemoglobin ABG Potassium ABG Glucose Oxyhemoglobin Carboxyhemoglobin Sodium Potassium Chloride Carbon Dioxide BUN Creatinine Glucose POC Glucose 136 H 115 H 124 H Calcium Ferritin Total Bilirubin Alkaline Phosphatase Lactate Dehydrogenase Total Creatine Kinase CK-MB (CK-2) Rel Index Troponin T C-Reactive Protein Total Protein Albumin Prealbumin LDL Cholesterol Direct HDL Cholesterol Arterial Blood Glucose Arterial Blood Ionized Calcium Urine WBC (Auto) 04/02/20 04/02/20 04/02/20 05:27 11:58 17:58 WBC RBC Hgb Hct MCV MCH RDW Plt Count Lymph % (Auto) [place] % (Auto) Eos % (Auto) Lymph # (Auto) [place] # (Auto) Eos # (Auto) Seg Neutrophils % Seg Neuts % (Manual) Lymphocytes % (Manual) Monocytes % (Manual) Basophils % (Manual) Seg Neutrophils # Seg Neutrophils # Man Lymphocytes # (Manual) Monocytes # (Manual) Eosinophils # (Manual) Basophils # (Manual) PT INR D-Dimer ABG pH POC ABG pCO2 POC ABG pO2 ABG pO2 ABG HCO3 ABG O2 Saturation ABG Base Excess ABG Hemoglobin ABG Oxyhemoglobin ABG Potassium ABG Glucose Oxyhemoglobin Carboxyhemoglobin Sodium Potassium Chloride Carbon Dioxide BUN Creatinine Glucose POC Glucose 117 H 133 H 122 H Calcium Ferritin Total Bilirubin Alkaline Phosphatase Lactate Dehydrogenase Total Creatine Kinase CK-MB (CK-2) Rel Index Troponin T C-Reactive Protein Total Protein Albumin Prealbumin LDL Cholesterol Direct HDL Cholesterol Arterial Blood Glucose Arterial Blood Ionized Calcium Urine WBC (Auto) 04/02/20 04/03/20 04/03/20 23:12 05:11 11:11 WBC RBC Hgb Hct MCV MCH RDW Plt Count Lymph % (Auto) [place] % (Auto) Eos % (Auto) Lymph # (Auto) [place] # (Auto) Eos # (Auto) Seg Neutrophils % Seg Neuts % (Manual) Lymphocytes % (Manual) Monocytes % (Manual) Basophils % (Manual) Seg Neutrophils # Seg Neutrophils # Man Lymphocytes # (Manual) Monocytes # (Manual) Eosinophils # (Manual) Basophils # (Manual) PT INR D-Dimer ABG pH POC ABG pCO2 POC ABG pO2 ABG pO2 ABG HCO3 ABG O2 Saturation ABG Base Excess ABG Hemoglobin ABG Oxyhemoglobin ABG Potassium ABG Glucose Oxyhemoglobin Carboxyhemoglobin Sodium Potassium Chloride Carbon Dioxide BUN Creatinine Glucose POC Glucose 130 H 139 H 136 H Calcium Ferritin Total Bilirubin Alkaline Phosphatase Lactate Dehydrogenase Total Creatine Kinase CK-MB (CK-2) Rel Index Troponin T C-Reactive Protein Total Protein Albumin Prealbumin LDL Cholesterol Direct HDL Cholesterol Arterial Blood Glucose Arterial Blood Ionized Calcium Urine WBC (Auto) 04/03/20 04/03/20 04/04/20 16:51 23:25 05:29 WBC RBC Hgb Hct MCV MCH RDW Plt Count Lymph % (Auto) [place] % (Auto) Eos % (Auto) Lymph # (Auto) [place] # (Auto) Eos # (Auto) Seg Neutrophils % Seg Neuts % (Manual) Lymphocytes % (Manual) Monocytes % (Manual) Basophils % (Manual) Seg Neutrophils # Seg Neutrophils # Man Lymphocytes # (Manual) Monocytes # (Manual) Eosinophils # (Manual) Basophils # (Manual) PT INR D-Dimer ABG pH POC ABG pCO2 POC ABG pO2 ABG pO2 ABG HCO3 ABG O2 Saturation ABG Base Excess ABG Hemoglobin ABG Oxyhemoglobin ABG Potassium ABG Glucose Oxyhemoglobin Carboxyhemoglobin Sodium Potassium Chloride Carbon Dioxide BUN Creatinine Glucose POC Glucose 118 H 111 H 126 H Calcium Ferritin Total Bilirubin Alkaline Phosphatase Lactate Dehydrogenase Total Creatine Kinase CK-MB (CK-2) Rel Index Troponin T C-Reactive Protein Total Protein Albumin Prealbumin LDL Cholesterol Direct HDL Cholesterol Arterial Blood Glucose Arterial Blood Ionized Calcium Urine WBC (Auto) 04/04/20 04/04/20 04/04/20 11:47 17:41 23:05 WBC RBC Hgb Hct MCV MCH RDW Plt Count Lymph % (Auto) [place] % (Auto) Eos % (Auto) Lymph # (Auto) [place] # (Auto) Eos # (Auto) Seg Neutrophils % Seg Neuts % (Manual) Lymphocytes % (Manual) Monocytes % (Manual) Basophils % (Manual) Seg Neutrophils # Seg Neutrophils # Man Lymphocytes # (Manual) Monocytes # (Manual) Eosinophils # (Manual) Basophils # (Manual) PT INR D-Dimer ABG pH POC ABG pCO2 POC ABG pO2 ABG pO2 ABG HCO3 ABG O2 Saturation ABG Base Excess ABG Hemoglobin ABG Oxyhemoglobin ABG Potassium ABG Glucose Oxyhemoglobin Carboxyhemoglobin Sodium Potassium Chloride Carbon Dioxide BUN Creatinine Glucose POC Glucose 123 H 120 H 119 H Calcium Ferritin Total Bilirubin Alkaline Phosphatase Lactate Dehydrogenase Total Creatine Kinase CK-MB (CK-2) Rel Index Troponin T C-Reactive Protein Total Protein Albumin Prealbumin LDL Cholesterol Direct HDL Cholesterol Arterial Blood Glucose Arterial Blood Ionized Calcium Urine WBC (Auto) 04/05/20 04/05/20 04/05/20 05:14 12:16 18:48 WBC RBC Hgb Hct MCV MCH RDW Plt Count Lymph % (Auto) [place] % (Auto) Eos % (Auto) Lymph # (Auto) [place] # (Auto) Eos # (Auto) Seg Neutrophils % Seg Neuts % (Manual) Lymphocytes % (Manual) Monocytes % (Manual) Basophils % (Manual) Seg Neutrophils # Seg Neutrophils # Man Lymphocytes # (Manual) Monocytes # (Manual) Eosinophils # (Manual) Basophils # (Manual) PT INR D-Dimer ABG pH POC ABG pCO2 POC ABG pO2 ABG pO2 ABG HCO3 ABG O2 Saturation ABG Base Excess ABG Hemoglobin ABG Oxyhemoglobin ABG Potassium ABG Glucose Oxyhemoglobin Carboxyhemoglobin Sodium Potassium Chloride Carbon Dioxide BUN Creatinine Glucose POC Glucose 123 H 148 H 106 H Calcium Ferritin Total Bilirubin Alkaline Phosphatase Lactate Dehydrogenase Total Creatine Kinase CK-MB (CK-2) Rel Index Troponin T C-Reactive Protein Total Protein Albumin Prealbumin LDL Cholesterol Direct HDL Cholesterol Arterial Blood Glucose Arterial Blood Ionized Calcium Urine WBC (Auto) 04/06/20 04/06/20 04/06/20 00:47 03:26 08:24 WBC RBC Hgb Hct MCV MCH RDW Plt Count Lymph % (Auto) [place] % (Auto) Eos % (Auto) Lymph # (Auto) [place] # (Auto) Eos # (Auto) Seg Neutrophils % Seg Neuts % (Manual) Lymphocytes % (Manual) Monocytes % (Manual) Basophils % (Manual) Seg Neutrophils # Seg Neutrophils # Man Lymphocytes # (Manual) Monocytes # (Manual) Eosinophils # (Manual) Basophils # (Manual) PT INR D-Dimer ABG pH POC ABG pCO2 POC ABG pO2 ABG pO2 ABG HCO3 ABG O2 Saturation ABG Base Excess ABG Hemoglobin ABG Oxyhemoglobin ABG Potassium ABG Glucose Oxyhemoglobin Carboxyhemoglobin Sodium Potassium Chloride Carbon Dioxide BUN Creatinine Glucose POC Glucose 129 H 134 H 131 H Calcium Ferritin Total Bilirubin Alkaline Phosphatase Lactate Dehydrogenase Total Creatine Kinase CK-MB (CK-2) Rel Index Troponin T C-Reactive Protein Total Protein Albumin Prealbumin LDL Cholesterol Direct HDL Cholesterol Arterial Blood Glucose Arterial Blood Ionized Calcium Urine WBC (Auto) 04/06/20 04/06/20 04/06/20 11:16 16:27 23:01 WBC RBC Hgb Hct MCV MCH RDW Plt Count Lymph % (Auto) [place] % (Auto) Eos % (Auto) Lymph # (Auto) [place] # (Auto) Eos # (Auto) Seg Neutrophils % Seg Neuts % (Manual) Lymphocytes % (Manual) Monocytes % (Manual) Basophils % (Manual) Seg Neutrophils # Seg Neutrophils # Man Lymphocytes # (Manual) Monocytes # (Manual) Eosinophils # (Manual) Basophils # (Manual) PT INR D-Dimer ABG pH POC ABG pCO2 POC ABG pO2 ABG pO2 ABG HCO3 ABG O2 Saturation ABG Base Excess ABG Hemoglobin ABG Oxyhemoglobin ABG Potassium ABG Glucose Oxyhemoglobin Carboxyhemoglobin Sodium Potassium Chloride Carbon Dioxide BUN Creatinine Glucose POC Glucose 131 H 107 H 125 H Calcium Ferritin Total Bilirubin Alkaline Phosphatase Lactate Dehydrogenase Total Creatine Kinase CK-MB (CK-2) Rel Index Troponin T C-Reactive Protein Total Protein Albumin Prealbumin LDL Cholesterol Direct HDL Cholesterol Arterial Blood Glucose Arterial Blood Ionized Calcium Urine WBC (Auto) 04/07/20 04/07/20 04/07/20 05:24 12:41 17:40 WBC RBC Hgb Hct MCV MCH RDW Plt Count Lymph % (Auto) [place] % (Auto) Eos % (Auto) Lymph # (Auto) [place] # (Auto) Eos # (Auto) Seg Neutrophils % Seg Neuts % (Manual) Lymphocytes % (Manual) Monocytes % (Manual) Basophils % (Manual) Seg Neutrophils # Seg Neutrophils # Man Lymphocytes # (Manual) Monocytes # (Manual) Eosinophils # (Manual) Basophils # (Manual) PT INR D-Dimer ABG pH POC ABG pCO2 POC ABG pO2 ABG pO2 ABG HCO3 ABG O2 Saturation ABG Base Excess ABG Hemoglobin ABG Oxyhemoglobin ABG Potassium ABG Glucose Oxyhemoglobin Carboxyhemoglobin Sodium Potassium Chloride Carbon Dioxide BUN Creatinine Glucose POC Glucose 125 H 145 H 123 H Calcium Ferritin Total Bilirubin Alkaline Phosphatase Lactate Dehydrogenase Total Creatine Kinase CK-MB (CK-2) Rel Index Troponin T C-Reactive Protein Total Protein Albumin Prealbumin LDL Cholesterol Direct HDL Cholesterol Arterial Blood Glucose Arterial Blood Ionized Calcium Urine WBC (Auto) 04/07/20 04/08/20 04/08/20 23:22 05:40 11:29 WBC RBC Hgb Hct MCV MCH RDW Plt Count Lymph % (Auto) [place] % (Auto) Eos % (Auto) Lymph # (Auto) [place] # (Auto) Eos # (Auto) Seg Neutrophils % Seg Neuts % (Manual) Lymphocytes % (Manual) Monocytes % (Manual) Basophils % (Manual) Seg Neutrophils # Seg Neutrophils # Man Lymphocytes # (Manual) Monocytes # (Manual) Eosinophils # (Manual) Basophils # (Manual) PT INR D-Dimer ABG pH POC ABG pCO2 POC ABG pO2 ABG pO2 ABG HCO3 ABG O2 Saturation ABG Base Excess ABG Hemoglobin ABG Oxyhemoglobin ABG Potassium ABG Glucose Oxyhemoglobin Carboxyhemoglobin Sodium Potassium Chloride Carbon Dioxide BUN Creatinine Glucose POC Glucose 133 H 125 H 116 H Calcium Ferritin Total Bilirubin Alkaline Phosphatase Lactate Dehydrogenase Total Creatine Kinase CK-MB (CK-2) Rel Index Troponin T C-Reactive Protein Total Protein Albumin Prealbumin LDL Cholesterol Direct HDL Cholesterol Arterial Blood Glucose Arterial Blood Ionized Calcium Urine WBC (Auto) 04/08/20 04/09/20 04/09/20 17:43 05:47 12:22 WBC RBC Hgb Hct MCV MCH RDW Plt Count Lymph % (Auto) [place] % (Auto) Eos % (Auto) Lymph # (Auto) [place] # (Auto) Eos # (Auto) Seg Neutrophils % Seg Neuts % (Manual) Lymphocytes % (Manual) Monocytes % (Manual) Basophils % (Manual) Seg Neutrophils # Seg Neutrophils # Man Lymphocytes # (Manual) Monocytes # (Manual) Eosinophils # (Manual) Basophils # (Manual) PT INR D-Dimer ABG pH POC ABG pCO2 POC ABG pO2 ABG pO2 ABG HCO3 ABG O2 Saturation ABG Base Excess ABG Hemoglobin ABG Oxyhemoglobin ABG Potassium ABG Glucose Oxyhemoglobin Carboxyhemoglobin Sodium Potassium Chloride Carbon Dioxide BUN Creatinine Glucose POC Glucose 123 H 108 H 116 H Calcium Ferritin Total Bilirubin Alkaline Phosphatase Lactate Dehydrogenase Total Creatine Kinase CK-MB (CK-2) Rel Index Troponin T C-Reactive Protein Total Protein Albumin Prealbumin LDL Cholesterol Direct HDL Cholesterol Arterial Blood Glucose Arterial Blood Ionized Calcium Urine WBC (Auto) 04/09/20 04/09/20 04/10/20 17:24 23:52 06:10 WBC RBC Hgb Hct MCV MCH RDW Plt Count Lymph % (Auto) [place] % (Auto) Eos % (Auto) Lymph # (Auto) [place] # (Auto) Eos # (Auto) Seg Neutrophils % Seg Neuts % (Manual) Lymphocytes % (Manual) Monocytes % (Manual) Basophils % (Manual) Seg Neutrophils # Seg Neutrophils # Man Lymphocytes # (Manual) Monocytes # (Manual) Eosinophils # (Manual) Basophils # (Manual) PT INR D-Dimer ABG pH POC ABG pCO2 POC ABG pO2 ABG pO2 ABG HCO3 ABG O2 Saturation ABG Base Excess ABG Hemoglobin ABG Oxyhemoglobin ABG Potassium ABG Glucose Oxyhemoglobin Carboxyhemoglobin Sodium Potassium Chloride Carbon Dioxide BUN Creatinine Glucose POC Glucose 108 H 126 H 122 H Calcium Ferritin Total Bilirubin Alkaline Phosphatase Lactate Dehydrogenase Total Creatine Kinase CK-MB (CK-2) Rel Index Troponin T C-Reactive Protein Total Protein Albumin Prealbumin LDL Cholesterol Direct HDL Cholesterol Arterial Blood Glucose Arterial Blood Ionized Calcium Urine WBC (Auto) 04/10/20 04/10/20 04/10/20 11:27 18:11 23:24 WBC RBC Hgb Hct MCV MCH RDW Plt Count Lymph % (Auto) [place] % (Auto) Eos % (Auto) Lymph # (Auto) [place] # (Auto) Eos # (Auto) Seg Neutrophils % Seg Neuts % (Manual) Lymphocytes % (Manual) Monocytes % (Manual) Basophils % (Manual) Seg Neutrophils # Seg Neutrophils # Man Lymphocytes # (Manual) Monocytes # (Manual) Eosinophils # (Manual) Basophils # (Manual) PT INR D-Dimer ABG pH POC ABG pCO2 POC ABG pO2 ABG pO2 ABG HCO3 ABG O2 Saturation ABG Base Excess ABG Hemoglobin ABG Oxyhemoglobin ABG Potassium ABG Glucose Oxyhemoglobin Carboxyhemoglobin Sodium Potassium Chloride Carbon Dioxide BUN Creatinine Glucose POC Glucose 129 H 125 H 107 H Calcium Ferritin Total Bilirubin Alkaline Phosphatase Lactate Dehydrogenase Total Creatine Kinase CK-MB (CK-2) Rel Index Troponin T C-Reactive Protein Total Protein Albumin Prealbumin LDL Cholesterol Direct HDL Cholesterol Arterial Blood Glucose Arterial Blood Ionized Calcium Urine WBC (Auto) 04/11/20 04/11/2020 05:28 11:46 23:49 WBC RBC Hgb Hct MCV MCH RDW Plt Count Lymph % (Auto) [place] % (Auto) Eos % (Auto) Lymph # (Auto) [place] # (Auto) Eos # (Auto) Seg Neutrophils % Seg Neuts % (Manual) Lymphocytes % (Manual) Monocytes % (Manual) Basophils % (Manual) Seg Neutrophils # Seg Neutrophils # Man Lymphocytes # (Manual) Monocytes # (Manual) Eosinophils # (Manual) Basophils # (Manual) PT INR D-Dimer ABG pH POC ABG pCO2 POC ABG pO2 ABG pO2 ABG HCO3 ABG O2 Saturation ABG Base Excess ABG Hemoglobin ABG Oxyhemoglobin ABG Potassium ABG Glucose Oxyhemoglobin Carboxyhemoglobin Sodium Potassium Chloride Carbon Dioxide BUN Creatinine Glucose POC Glucose 122 H 122 H 116 H Calcium Ferritin Total Bilirubin Alkaline Phosphatase Lactate Dehydrogenase Total Creatine Kinase CK-MB (CK-2) Rel Index Troponin T C-Reactive Protein Total Protein Albumin Prealbumin LDL Cholesterol Direct HDL Cholesterol Arterial Blood Glucose Arterial Blood Ionized Calcium Urine WBC (Auto) 04/12/20 04/12/20 04/12/20 09:07 09:07 11:39 WBC 13.1 H RBC 3.59 L Hgb 9.5 L Hct 29.8 L MCV 83 L MCH 26 L RDW 16.6 H Plt Count 591 H Lymph % (Auto) [place] % (Auto) Eos % (Auto) Lymph # (Auto) [place] # (Auto) Eos # (Auto) Seg Neutrophils % Seg Neuts % (Manual) 86.0 H Lymphocytes % (Manual) 7.0 L Monocytes % (Manual) Basophils % (Manual) Seg Neutrophils # Seg Neutrophils # Man 11.3 H Lymphocytes # (Manual) 0.9 L Monocytes # (Manual) Eosinophils # (Manual) Basophils # (Manual) PT INR D-Dimer ABG pH POC ABG pCO2 POC ABG pO2 ABG pO2 ABG HCO3 ABG O2 Saturation ABG Base Excess ABG Hemoglobin ABG Oxyhemoglobin ABG Potassium ABG Glucose Oxyhemoglobin Carboxyhemoglobin Sodium Potassium Chloride Carbon Dioxide 36 H BUN Creatinine < 0.2 L Glucose 132 H POC Glucose 136 H Calcium Ferritin Total Bilirubin Alkaline Phosphatase Lactate Dehydrogenase Total Creatine Kinase CK-MB (CK-2) Rel Index Troponin T C-Reactive Protein Total Protein Albumin 2.7 L Prealbumin LDL Cholesterol Direct HDL Cholesterol Arterial Blood Glucose Arterial Blood Ionized Calcium Urine WBC (Auto) 04/12/20 04/12/20 04/13/20 18:13 23:07 05:45 WBC RBC Hgb Hct MCV MCH RDW Plt Count Lymph % (Auto) [place] % (Auto) Eos % (Auto) Lymph # (Auto) [place] # (Auto) Eos # (Auto) Seg Neutrophils % Seg Neuts % (Manual) Lymphocytes % (Manual) Monocytes % (Manual) Basophils % (Manual) Seg Neutrophils # Seg Neutrophils # Man Lymphocytes # (Manual) Monocytes # (Manual) Eosinophils # (Manual) Basophils # (Manual) PT INR D-Dimer ABG pH POC ABG pCO2 POC ABG pO2 ABG pO2 ABG HCO3 ABG O2 Saturation ABG Base Excess ABG Hemoglobin ABG Oxyhemoglobin ABG Potassium ABG Glucose Oxyhemoglobin Carboxyhemoglobin Sodium Potassium Chloride Carbon Dioxide BUN Creatinine Glucose POC Glucose 107 H 106 H 125 H Calcium Ferritin Total Bilirubin Alkaline Phosphatase Lactate Dehydrogenase Total Creatine Kinase CK-MB (CK-2) Rel Index Troponin T C-Reactive Protein Total Protein Albumin Prealbumin LDL Cholesterol Direct HDL Cholesterol Arterial Blood Glucose Arterial Blood Ionized Calcium Urine WBC (Auto) 04/13/20 04/13/20 04/13/20 11:18 17:56 23:33 WBC RBC Hgb Hct MCV MCH RDW Plt Count Lymph % (Auto) [place] % (Auto) Eos % (Auto) Lymph # (Auto) [place] # (Auto) Eos # (Auto) Seg Neutrophils % Seg Neuts % (Manual) Lymphocytes % (Manual) Monocytes % (Manual) Basophils % (Manual) Seg Neutrophils # Seg Neutrophils # Man Lymphocytes # (Manual) Monocytes # (Manual) Eosinophils # (Manual) Basophils # (Manual) PT INR D-Dimer ABG pH POC ABG pCO2 POC ABG pO2 ABG pO2 ABG HCO3 ABG O2 Saturation ABG Base Excess ABG Hemoglobin ABG Oxyhemoglobin ABG Potassium ABG Glucose Oxyhemoglobin Carboxyhemoglobin Sodium Potassium Chloride Carbon Dioxide BUN Creatinine Glucose POC Glucose 133 H 110 H 114 H Calcium Ferritin Total Bilirubin Alkaline Phosphatase Lactate Dehydrogenase Total Creatine Kinase CK-MB (CK-2) Rel Index Troponin T C-Reactive Protein Total Protein Albumin Prealbumin LDL Cholesterol Direct HDL Cholesterol Arterial Blood Glucose Arterial Blood Ionized Calcium Urine WBC (Auto) 04/14/20 04/14/20 04/14/20 05:58 11:45 17:48 WBC RBC Hgb Hct MCV MCH RDW Plt Count Lymph % (Auto) [place] % (Auto) Eos % (Auto) Lymph # (Auto) [place] # (Auto) Eos # (Auto) Seg Neutrophils % Seg Neuts % (Manual) Lymphocytes % (Manual) Monocytes % (Manual) Basophils % (Manual) Seg Neutrophils # Seg Neutrophils # Man Lymphocytes # (Manual) Monocytes # (Manual) Eosinophils # (Manual) Basophils # (Manual) PT INR D-Dimer ABG pH POC ABG pCO2 POC ABG pO2 ABG pO2 ABG HCO3 ABG O2 Saturation ABG Base Excess ABG Hemoglobin ABG Oxyhemoglobin ABG Potassium ABG Glucose Oxyhemoglobin Carboxyhemoglobin Sodium Potassium Chloride Carbon Dioxide BUN Creatinine Glucose POC Glucose 115 H 122 H 124 H Calcium Ferritin Total Bilirubin Alkaline Phosphatase Lactate Dehydrogenase Total Creatine Kinase CK-MB (CK-2) Rel Index Troponin T C-Reactive Protein Total Protein Albumin Prealbumin LDL Cholesterol Direct HDL Cholesterol Arterial Blood Glucose Arterial Blood Ionized Calcium Urine WBC (Auto) 04/15/20 04/15/20 04/15/20 00:11 05:38 11:31 WBC RBC Hgb Hct MCV MCH RDW Plt Count Lymph % (Auto) [place] % (Auto) Eos % (Auto) Lymph # (Auto) [place] # (Auto) Eos # (Auto) Seg Neutrophils % Seg Neuts % (Manual) Lymphocytes % (Manual) Monocytes % (Manual) Basophils % (Manual) Seg Neutrophils # Seg Neutrophils # Man Lymphocytes # (Manual) Monocytes # (Manual) Eosinophils # (Manual) Basophils # (Manual) PT INR D-Dimer ABG pH POC ABG pCO2 POC ABG pO2 ABG pO2 ABG HCO3 ABG O2 Saturation ABG Base Excess ABG Hemoglobin ABG Oxyhemoglobin ABG Potassium ABG Glucose Oxyhemoglobin Carboxyhemoglobin Sodium Potassium Chloride Carbon Dioxide BUN Creatinine Glucose POC Glucose 120 H 109 H 123 H Calcium Ferritin Total Bilirubin Alkaline Phosphatase Lactate Dehydrogenase Total Creatine Kinase CK-MB (CK-2) Rel Index Troponin T C-Reactive Protein Total Protein Albumin Prealbumin LDL Cholesterol Direct HDL Cholesterol Arterial Blood Glucose Arterial Blood Ionized Calcium Urine WBC (Auto) 04/15/20 04/16/20 04/16/20 17:35 06:00 11:29 WBC RBC Hgb Hct MCV MCH RDW Plt Count Lymph % (Auto) [place] % (Auto) Eos % (Auto) Lymph # (Auto) [place] # (Auto) Eos # (Auto) Seg Neutrophils % Seg Neuts % (Manual) Lymphocytes % (Manual) Monocytes % (Manual) Basophils % (Manual) Seg Neutrophils # Seg Neutrophils # Man Lymphocytes # (Manual) Monocytes # (Manual) Eosinophils # (Manual) Basophils # (Manual) PT INR D-Dimer ABG pH POC ABG pCO2 POC ABG pO2 ABG pO2 ABG HCO3 ABG O2 Saturation ABG Base Excess ABG Hemoglobin ABG Oxyhemoglobin ABG Potassium ABG Glucose Oxyhemoglobin Carboxyhemoglobin Sodium Potassium Chloride Carbon Dioxide BUN Creatinine Glucose POC Glucose 111 H 142 H 108 H Calcium Ferritin Total Bilirubin Alkaline Phosphatase Lactate Dehydrogenase Total Creatine Kinase CK-MB (CK-2) Rel Index Troponin T C-Reactive Protein Total Protein Albumin Prealbumin LDL Cholesterol Direct HDL Cholesterol Arterial Blood Glucose Arterial Blood Ionized Calcium Urine WBC (Auto) 04/17/20 04/17/20 04/17/20 05:09 06:53 06:53 WBC 14.2 H RBC Hgb 10.1 L Hct 31.5 L MCV MCH 27 L RDW 17.2 H Plt Count 643 H Lymph % (Auto) [place] % (Auto) Eos % (Auto) Lymph # (Auto) [place] # (Auto) Eos # (Auto) Seg Neutrophils % Seg Neuts % (Manual) Lymphocytes % (Manual) Monocytes % (Manual) Basophils % (Manual) Seg Neutrophils # Seg Neutrophils # Man Lymphocytes # (Manual) Monocytes # (Manual) Eosinophils # (Manual) Basophils # (Manual) PT INR D-Dimer ABG pH POC ABG pCO2 POC ABG pO2 ABG pO2 ABG HCO3 ABG O2 Saturation ABG Base Excess ABG Hemoglobin ABG Oxyhemoglobin ABG Potassium ABG Glucose Oxyhemoglobin Carboxyhemoglobin Sodium Potassium Chloride 97.7 L Carbon Dioxide 38 H BUN Creatinine < 0.2 L Glucose 126 H POC Glucose 131 H Calcium Ferritin Total Bilirubin Alkaline Phosphatase Lactate Dehydrogenase Total Creatine Kinase CK-MB (CK-2) Rel Index Troponin T C-Reactive Protein Total Protein Albumin Prealbumin LDL Cholesterol Direct HDL Cholesterol Arterial Blood Glucose Arterial Blood Ionized Calcium Urine WBC (Auto) 04/17/20 04/18/20 04/18/20 11:21 00:23 04:01 WBC 15.3 H RBC Hgb 10.1 L Hct 31.9 L MCV 82 L MCH 26 L RDW 17.2 H Plt Count 665 H Lymph % (Auto) 12.9 L [place] % (Auto) Eos % (Auto) Lymph # (Auto) [place] # (Auto) 1.1 H Eos # (Auto) Seg Neutrophils % 78.0 H Seg Neuts % (Manual) Lymphocytes % (Manual) Monocytes % (Manual) Basophils % (Manual) Seg Neutrophils # 11.9 H Seg Neutrophils # Man Lymphocytes # (Manual) Monocytes # (Manual) Eosinophils # (Manual) Basophils # (Manual) PT INR D-Dimer ABG pH POC ABG pCO2 POC ABG pO2 ABG pO2 ABG HCO3 ABG O2 Saturation ABG Base Excess ABG Hemoglobin ABG Oxyhemoglobin ABG Potassium ABG Glucose Oxyhemoglobin Carboxyhemoglobin Sodium Potassium Chloride Carbon Dioxide BUN Creatinine Glucose POC Glucose 140 H 125 H Calcium Ferritin Total Bilirubin Alkaline Phosphatase Lactate Dehydrogenase Total Creatine Kinase CK-MB (CK-2) Rel Index Troponin T C-Reactive Protein Total Protein Albumin Prealbumin LDL Cholesterol Direct HDL Cholesterol Arterial Blood Glucose Arterial Blood Ionized Calcium Urine WBC (Auto) 04/18/20 04/18/20 04/18/20 04:01 11:29 17:30 WBC RBC Hgb Hct MCV MCH RDW Plt Count Lymph % (Auto) [place] % (Auto) Eos % (Auto) Lymph # (Auto) [place] # (Auto) Eos # (Auto) Seg Neutrophils % Seg Neuts % (Manual) Lymphocytes % (Manual) Monocytes % (Manual) Basophils % (Manual) Seg Neutrophils # Seg Neutrophils # Man Lymphocytes # (Manual) Monocytes # (Manual) Eosinophils # (Manual) Basophils # (Manual) PT INR D-Dimer ABG pH POC ABG pCO2 POC ABG pO2 ABG pO2 ABG HCO3 ABG O2 Saturation ABG Base Excess ABG Hemoglobin ABG Oxyhemoglobin ABG Potassium ABG Glucose Oxyhemoglobin Carboxyhemoglobin Sodium Potassium Chloride 97.0 L Carbon Dioxide 38 H BUN Creatinine < 0.2 L Glucose 117 H POC Glucose 136 H 107 H Calcium Ferritin Total Bilirubin Alkaline Phosphatase Lactate Dehydrogenase Total Creatine Kinase CK-MB (CK-2) Rel Index Troponin T C-Reactive Protein Total Protein Albumin Prealbumin LDL Cholesterol Direct HDL Cholesterol Arterial Blood Glucose Arterial Blood Ionized Calcium Urine WBC (Auto) 04/18/20 04/19/20 04/19/20 23:19 06:51 06:51 WBC 12.2 H RBC Hgb 9.8 L Hct 31.1 L MCV 82 L MCH 26 L RDW 17.2 H Plt Count 549 H Lymph % (Auto) 6.5 L [place] % (Auto) Eos % (Auto) Lymph # (Auto) 0.8 L [place] # (Auto) Eos # (Auto) Seg Neutrophils % 86.7 H Seg Neuts % (Manual) Lymphocytes % (Manual) Monocytes % (Manual) Basophils % (Manual) Seg Neutrophils # 10.6 H Seg Neutrophils # Man Lymphocytes # (Manual) Monocytes # (Manual) Eosinophils # (Manual) Basophils # (Manual) PT INR D-Dimer ABG pH POC ABG pCO2 POC ABG pO2 ABG pO2 ABG HCO3 ABG O2 Saturation ABG Base Excess ABG Hemoglobin ABG Oxyhemoglobin ABG Potassium ABG Glucose Oxyhemoglobin Carboxyhemoglobin Sodium Potassium Chloride 97.8 L Carbon Dioxide 38 H BUN Creatinine < 0.2 L Glucose 123 H POC Glucose 127 H Calcium Ferritin Total Bilirubin Alkaline Phosphatase Lactate Dehydrogenase Total Creatine Kinase CK-MB (CK-2) Rel Index Troponin T C-Reactive Protein Total Protein Albumin Prealbumin LDL Cholesterol Direct HDL Cholesterol Arterial Blood Glucose Arterial Blood Ionized Calcium Urine WBC (Auto) 04/19/20 04/19/20 04/20/20 13:41 18:33 05:56 WBC RBC Hgb Hct MCV MCH RDW Plt Count Lymph % (Auto) [place] % (Auto) Eos % (Auto) Lymph # (Auto) [place] # (Auto) Eos # (Auto) Seg Neutrophils % Seg Neuts % (Manual) Lymphocytes % (Manual) Monocytes % (Manual) Basophils % (Manual) Seg Neutrophils # Seg Neutrophils # Man Lymphocytes # (Manual) Monocytes # (Manual) Eosinophils # (Manual) Basophils # (Manual) PT INR D-Dimer ABG pH POC ABG pCO2 POC ABG pO2 ABG pO2 ABG HCO3 ABG O2 Saturation ABG Base Excess ABG Hemoglobin ABG Oxyhemoglobin ABG Potassium ABG Glucose Oxyhemoglobin Carboxyhemoglobin Sodium Potassium Chloride Carbon Dioxide BUN Creatinine Glucose POC Glucose 116 H 124 H 130 H Calcium Ferritin Total Bilirubin Alkaline Phosphatase Lactate Dehydrogenase Total Creatine Kinase CK-MB (CK-2) Rel Index Troponin T C-Reactive Protein Total Protein Albumin Prealbumin LDL Cholesterol Direct HDL Cholesterol Arterial Blood Glucose Arterial Blood Ionized Calcium Urine WBC (Auto) 04/20/20 04/20/20 04/20/20 06:28 06:28 11:46 WBC RBC Hgb 10.2 L Hct 31.5 L MCV 82 L MCH 27 L RDW 17.1 H Plt Count 546 H Lymph % (Auto) 10.0 L [place] % (Auto) 9.8 H Eos % (Auto) Lymph # (Auto) 1.1 L [place] # (Auto) 1.1 H Eos # (Auto) Seg Neutrophils % 78.4 H Seg Neuts % (Manual) Lymphocytes % (Manual) Monocytes % (Manual) Basophils % (Manual) Seg Neutrophils # 8.5 H Seg Neutrophils # Man Lymphocytes # (Manual) Monocytes # (Manual) Eosinophils # (Manual) Basophils # (Manual) PT INR D-Dimer ABG pH POC ABG pCO2 POC ABG pO2 ABG pO2 ABG HCO3 ABG O2 Saturation ABG Base Excess ABG Hemoglobin ABG Oxyhemoglobin ABG Potassium ABG Glucose Oxyhemoglobin Carboxyhemoglobin Sodium Potassium Chloride 97.0 L Carbon Dioxide 38 H BUN Creatinine < 0.2 L Glucose 138 H POC Glucose 130 H Calcium Ferritin Total Bilirubin Alkaline Phosphatase Lactate Dehydrogenase Total Creatine Kinase CK-MB (CK-2) Rel Index Troponin T C-Reactive Protein Total Protein Albumin Prealbumin LDL Cholesterol Direct HDL Cholesterol Arterial Blood Glucose Arterial Blood Ionized Calcium Urine WBC (Auto) 04/20/20 04/21/20 04/21/20 23:31 05:55 05:55 WBC RBC Hgb 10.0 L Hct 31.1 L MCV 82 L MCH 26 L RDW 17.0 H Plt Count 535 H Lymph % (Auto) [place] % (Auto) 9.2 H Eos % (Auto) Lymph # (Auto) 1.1 L [place] # (Auto) Eos # (Auto) Seg Neutrophils % 75.4 H Seg Neuts % (Manual) Lymphocytes % (Manual) Monocytes % (Manual) Basophils % (Manual) Seg Neutrophils # Seg Neutrophils # Man Lymphocytes # (Manual) Monocytes # (Manual) Eosinophils # (Manual) Basophils # (Manual) PT INR D-Dimer ABG pH POC ABG pCO2 POC ABG pO2 ABG pO2 ABG HCO3 ABG O2 Saturation ABG Base Excess ABG Hemoglobin ABG Oxyhemoglobin ABG Potassium ABG Glucose Oxyhemoglobin Carboxyhemoglobin Sodium Potassium Chloride 95.0 L Carbon Dioxide 34 H BUN Creatinine < 0.2 L Glucose 125 H POC Glucose 116 H Calcium Ferritin Total Bilirubin Alkaline Phosphatase Lactate Dehydrogenase Total Creatine Kinase CK-MB (CK-2) Rel Index Troponin T C-Reactive Protein Total Protein Albumin Prealbumin LDL Cholesterol Direct HDL Cholesterol Arterial Blood Glucose Arterial Blood Ionized Calcium Urine WBC (Auto) 04/22/20 04/22/20 04/22/20 00:01 07:45 07:45 WBC RBC Hgb 10.0 L Hct 30.7 L MCV 81 L MCH 27 L RDW 17.1 H Plt Count 490 H Lymph % (Auto) [place] % (Auto) Eos % (Auto) Lymph # (Auto) [place] # (Auto) Eos # (Auto) Seg Neutrophils % Seg Neuts % (Manual) 75.0 H Lymphocytes % (Manual) 11.0 L Monocytes % (Manual) 9.0 H Basophils % (Manual) Seg Neutrophils # Seg Neutrophils # Man Lymphocytes # (Manual) 0.8 L Monocytes # (Manual) Eosinophils # (Manual) Basophils # (Manual) PT INR D-Dimer ABG pH POC ABG pCO2 POC ABG pO2 ABG pO2 ABG HCO3 ABG O2 Saturation ABG Base Excess ABG Hemoglobin ABG Oxyhemoglobin ABG Potassium ABG Glucose Oxyhemoglobin Carboxyhemoglobin Sodium Potassium Chloride 96.3 L Carbon Dioxide 40 H BUN Creatinine < 0.2 L Glucose 109 H POC Glucose 110 H Calcium Ferritin Total Bilirubin Alkaline Phosphatase Lactate Dehydrogenase Total Creatine Kinase CK-MB (CK-2) Rel Index Troponin T C-Reactive Protein Total Protein Albumin Prealbumin LDL Cholesterol Direct HDL Cholesterol Arterial Blood Glucose Arterial Blood Ionized Calcium Urine WBC (Auto) 04/23/20 04/23/20 04/23/20 04:28 04:28 04:28 WBC RBC 3.64 L Hgb 9.7 L Hct 29.4 L MCV 81 L MCH 27 L RDW 17.2 H Plt Count 527 H Lymph % (Auto) [place] % (Auto) 8.9 H Eos % (Auto) Lymph # (Auto) [place] # (Auto) Eos # (Auto) Seg Neutrophils % Seg Neuts % (Manual) Lymphocytes % (Manual) Monocytes % (Manual) Basophils % (Manual) Seg Neutrophils # Seg Neutrophils # Man Lymphocytes # (Manual) Monocytes # (Manual) Eosinophils # (Manual) Basophils # (Manual) PT INR D-Dimer ABG pH POC ABG pCO2 POC ABG pO2 ABG pO2 ABG HCO3 ABG O2 Saturation ABG Base Excess ABG Hemoglobin ABG Oxyhemoglobin ABG Potassium ABG Glucose Oxyhemoglobin Carboxyhemoglobin Sodium Potassium Chloride 96.4 L Carbon Dioxide 32 H D BUN Creatinine < 0.2 L Glucose 134 H POC Glucose Calcium Ferritin Total Bilirubin Alkaline Phosphatase Lactate Dehydrogenase Total Creatine Kinase CK-MB (CK-2) Rel Index Troponin T 0.151 H* C-Reactive Protein Total Protein Albumin Prealbumin LDL Cholesterol Direct HDL Cholesterol 29 L Arterial Blood Glucose Arterial Blood Ionized Calcium Urine WBC (Auto) 04/23/20 04/23/20 04/24/20 06:03 23:41 05:28 WBC RBC 3.56 L Hgb 9.5 L Hct 28.9 L MCV 81 L MCH 27 L RDW 17.4 H Plt Count 462 H Lymph % (Auto) [place] % (Auto) Eos % (Auto) Lymph # (Auto) [place] # (Auto) Eos # (Auto) Seg Neutrophils % Seg Neuts % (Manual) 80.0 H Lymphocytes % (Manual) Monocytes % (Manual) Basophils % (Manual) Seg Neutrophils # Seg Neutrophils # Man Lymphocytes # (Manual) Monocytes # (Manual) Eosinophils # (Manual) Basophils # (Manual) PT INR D-Dimer ABG pH POC ABG pCO2 POC ABG pO2 ABG pO2 ABG HCO3 ABG O2 Saturation ABG Base Excess ABG Hemoglobin ABG Oxyhemoglobin ABG Potassium ABG Glucose Oxyhemoglobin Carboxyhemoglobin Sodium Potassium Chloride Carbon Dioxide BUN Creatinine Glucose POC Glucose 132 H 117 H Calcium Ferritin Total Bilirubin Alkaline Phosphatase Lactate Dehydrogenase Total Creatine Kinase CK-MB (CK-2) Rel Index Troponin T C-Reactive Protein Total Protein Albumin Prealbumin LDL Cholesterol Direct HDL Cholesterol Arterial Blood Glucose Arterial Blood Ionized Calcium Urine WBC (Auto) 04/24/20 04/24/20 04/24/20 05:28 05:28 05:33 WBC RBC Hgb Hct MCV MCH RDW Plt Count Lymph % (Auto) [place] % (Auto) Eos % (Auto) Lymph # (Auto) [place] # (Auto) Eos # (Auto) Seg Neutrophils % Seg Neuts % (Manual) Lymphocytes % (Manual) Monocytes % (Manual) Basophils % (Manual) Seg Neutrophils # Seg Neutrophils # Man Lymphocytes # (Manual) Monocytes # (Manual) Eosinophils # (Manual) Basophils # (Manual) PT INR D-Dimer ABG pH POC ABG pCO2 POC ABG pO2 ABG pO2 ABG HCO3 ABG O2 Saturation ABG Base Excess ABG Hemoglobin ABG Oxyhemoglobin ABG Potassium ABG Glucose Oxyhemoglobin Carboxyhemoglobin Sodium Potassium Chloride 96.1 L Carbon Dioxide 40 H D BUN Creatinine < 0.2 L Glucose 115 H POC Glucose 109 H Calcium Ferritin Total Bilirubin Alkaline Phosphatase Lactate Dehydrogenase Total Creatine Kinase CK-MB (CK-2) Rel Index Troponin T 0.181 H* C-Reactive Protein Total Protein Albumin Prealbumin LDL Cholesterol Direct HDL Cholesterol Arterial Blood Glucose Arterial Blood Ionized Calcium Urine WBC (Auto) 04/24/20 04/24/20 04/25/20 11:17 18:23 00:12 WBC RBC Hgb Hct MCV MCH RDW Plt Count Lymph % (Auto) [place] % (Auto) Eos % (Auto) Lymph # (Auto) [place] # (Auto) Eos # (Auto) Seg Neutrophils % Seg Neuts % (Manual) Lymphocytes % (Manual) Monocytes % (Manual) Basophils % (Manual) Seg Neutrophils # Seg Neutrophils # Man Lymphocytes # (Manual) Monocytes # (Manual) Eosinophils # (Manual) Basophils # (Manual) PT INR D-Dimer ABG pH POC ABG pCO2 POC ABG pO2 ABG pO2 ABG HCO3 ABG O2 Saturation ABG Base Excess ABG Hemoglobin ABG Oxyhemoglobin ABG Potassium ABG Glucose Oxyhemoglobin Carboxyhemoglobin Sodium Potassium Chloride Carbon Dioxide BUN Creatinine Glucose POC Glucose 117 H 109 H 113 H Calcium Ferritin Total Bilirubin Alkaline Phosphatase Lactate Dehydrogenase Total Creatine Kinase CK-MB (CK-2) Rel Index Troponin T C-Reactive Protein Total Protein Albumin Prealbumin LDL Cholesterol Direct HDL Cholesterol Arterial Blood Glucose Arterial Blood Ionized Calcium Urine WBC (Auto) 04/25/20 04/25/20 04/25/20 06:34 06:34 11:28 WBC 11.7 H RBC Hgb 10.0 L Hct 31.7 L MCV 82 L MCH 26 L RDW 17.5 H Plt Count 564 H Lymph % (Auto) [place] % (Auto) Eos % (Auto) Lymph # (Auto) [place] # (Auto) Eos # (Auto) Seg Neutrophils % Seg Neuts % (Manual) 78.0 H Lymphocytes % (Manual) 10.0 L Monocytes % (Manual) 9.0 H Basophils % (Manual) Seg Neutrophils # Seg Neutrophils # Man 9.1 H Lymphocytes # (Manual) Monocytes # (Manual) 1.1 H Eosinophils # (Manual) Basophils # (Manual) PT INR D-Dimer ABG pH POC ABG pCO2 POC ABG pO2 ABG pO2 ABG HCO3 ABG O2 Saturation ABG Base Excess ABG Hemoglobin ABG Oxyhemoglobin ABG Potassium ABG Glucose Oxyhemoglobin Carboxyhemoglobin Sodium Potassium Chloride Carbon Dioxide 39 H BUN Creatinine < 0.2 L Glucose 103 H POC Glucose 112 H Calcium Ferritin Total Bilirubin Alkaline Phosphatase Lactate Dehydrogenase Total Creatine Kinase CK-MB (CK-2) Rel Index Troponin T C-Reactive Protein Total Protein Albumin Prealbumin LDL Cholesterol Direct HDL Cholesterol Arterial Blood Glucose Arterial Blood Ionized Calcium Urine WBC (Auto) 04/27/20 04/27/20 04/27/20 11:48 17:08 23:31 WBC RBC Hgb Hct MCV MCH RDW Plt Count Lymph % (Auto) [place] % (Auto) Eos % (Auto) Lymph # (Auto) [place] # (Auto) Eos # (Auto) Seg Neutrophils % Seg Neuts % (Manual) Lymphocytes % (Manual) Monocytes % (Manual) Basophils % (Manual) Seg Neutrophils # Seg Neutrophils # Man Lymphocytes # (Manual) Monocytes # (Manual) Eosinophils # (Manual) Basophils # (Manual) PT INR D-Dimer ABG pH POC ABG pCO2 POC ABG pO2 ABG pO2 ABG HCO3 ABG O2 Saturation ABG Base Excess ABG Hemoglobin ABG Oxyhemoglobin ABG Potassium ABG Glucose Oxyhemoglobin Carboxyhemoglobin Sodium Potassium Chloride Carbon Dioxide BUN Creatinine Glucose POC Glucose 124 H 118 H 122 H Calcium Ferritin Total Bilirubin Alkaline Phosphatase Lactate Dehydrogenase Total Creatine Kinase CK-MB (CK-2) Rel Index Troponin T C-Reactive Protein Total Protein Albumin Prealbumin LDL Cholesterol Direct HDL Cholesterol Arterial Blood Glucose Arterial Blood Ionized Calcium Urine WBC (Auto) 04/28/20 04/29/20 04/29/20 05:42 00:14 05:30 WBC RBC Hgb Hct MCV MCH RDW Plt Count Lymph % (Auto) [place] % (Auto) Eos % (Auto) Lymph # (Auto) [place] # (Auto) Eos # (Auto) Seg Neutrophils % Seg Neuts % (Manual) Lymphocytes % (Manual) Monocytes % (Manual) Basophils % (Manual) Seg Neutrophils # Seg Neutrophils # Man Lymphocytes # (Manual) Monocytes # (Manual) Eosinophils # (Manual) Basophils # (Manual) PT INR D-Dimer ABG pH POC ABG pCO2 POC ABG pO2 ABG pO2 ABG HCO3 ABG O2 Saturation ABG Base Excess ABG Hemoglobin ABG Oxyhemoglobin ABG Potassium ABG Glucose Oxyhemoglobin Carboxyhemoglobin Sodium Potassium Chloride Carbon Dioxide BUN Creatinine Glucose POC Glucose 122 H 115 H 123 H Calcium Ferritin Total Bilirubin Alkaline Phosphatase Lactate Dehydrogenase Total Creatine Kinase CK-MB (CK-2) Rel Index Troponin T C-Reactive Protein Total Protein Albumin Prealbumin LDL Cholesterol Direct HDL Cholesterol Arterial Blood Glucose Arterial Blood Ionized Calcium Urine WBC (Auto) 04/30/20 05/01/20 05/01/20 00:29 05:39 12:30 WBC RBC Hgb Hct MCV MCH RDW Plt Count Lymph % (Auto) [place] % (Auto) Eos % (Auto) Lymph # (Auto) [place] # (Auto) Eos # (Auto) Seg Neutrophils % Seg Neuts % (Manual) Lymphocytes % (Manual) Monocytes % (Manual) Basophils % (Manual) Seg Neutrophils # Seg Neutrophils # Man Lymphocytes # (Manual) Monocytes # (Manual) Eosinophils # (Manual) Basophils # (Manual) PT INR D-Dimer ABG pH POC ABG pCO2 POC ABG pO2 ABG pO2 ABG HCO3 ABG O2 Saturation ABG Base Excess ABG Hemoglobin ABG Oxyhemoglobin ABG Potassium ABG Glucose Oxyhemoglobin Carboxyhemoglobin Sodium Potassium Chloride Carbon Dioxide BUN Creatinine Glucose POC Glucose 106 H 109 H 108 H Calcium Ferritin Total Bilirubin Alkaline Phosphatase Lactate Dehydrogenase Total Creatine Kinase CK-MB (CK-2) Rel Index Troponin T C-Reactive Protein Total Protein Albumin Prealbumin LDL Cholesterol Direct HDL Cholesterol Arterial Blood Glucose Arterial Blood Ionized Calcium Urine WBC (Auto) 05/01/20 05/03/20 05/03/20 23:35 05:09 11:36 WBC RBC Hgb Hct MCV MCH RDW Plt Count Lymph % (Auto) [place] % (Auto) Eos % (Auto) Lymph # (Auto) [place] # (Auto) Eos # (Auto) Seg Neutrophils % Seg Neuts % (Manual) Lymphocytes % (Manual) Monocytes % (Manual) Basophils % (Manual) Seg Neutrophils # Seg Neutrophils # Man Lymphocytes # (Manual) Monocytes # (Manual) Eosinophils # (Manual) Basophils # (Manual) PT INR D-Dimer ABG pH POC ABG pCO2 POC ABG pO2 ABG pO2 ABG HCO3 ABG O2 Saturation ABG Base Excess ABG Hemoglobin ABG Oxyhemoglobin ABG Potassium ABG Glucose Oxyhemoglobin Carboxyhemoglobin Sodium Potassium Chloride Carbon Dioxide BUN Creatinine Glucose POC Glucose 116 H 117 H 116 H Calcium Ferritin Total Bilirubin Alkaline Phosphatase Lactate Dehydrogenase Total Creatine Kinase CK-MB (CK-2) Rel Index Troponin T C-Reactive Protein Total Protein Albumin Prealbumin LDL Cholesterol Direct HDL Cholesterol Arterial Blood Glucose Arterial Blood Ionized Calcium Urine WBC (Auto) 05/03/20 05/03/20 05/03/20 14:06 14:06 23:39 WBC 12.5 H RBC Hgb 10.0 L Hct 31.2 L MCV 80 L MCH 26 L RDW 17.6 H Plt Count 488 H Lymph % (Auto) [place] % (Auto) Eos % (Auto) Lymph # (Auto) [place] # (Auto) Eos # (Auto) Seg Neutrophils % Seg Neuts % (Manual) Lymphocytes % (Manual) Monocytes % (Manual) Basophils % (Manual) Seg Neutrophils # Seg Neutrophils # Man Lymphocytes # (Manual) Monocytes # (Manual) Eosinophils # (Manual) Basophils # (Manual) PT INR D-Dimer ABG pH POC ABG pCO2 POC ABG pO2 ABG pO2 ABG HCO3 ABG O2 Saturation ABG Base Excess ABG Hemoglobin ABG Oxyhemoglobin ABG Potassium ABG Glucose Oxyhemoglobin Carboxyhemoglobin Sodium Potassium Chloride 95.4 L Carbon Dioxide 40 H BUN Creatinine < 0.2 L Glucose 121 H POC Glucose 107 H Calcium Ferritin Total Bilirubin Alkaline Phosphatase Lactate Dehydrogenase Total Creatine Kinase CK-MB (CK-2) Rel Index Troponin T C-Reactive Protein Total Protein Albumin Prealbumin LDL Cholesterol Direct HDL Cholesterol Arterial Blood Glucose Arterial Blood Ionized Calcium Urine WBC (Auto) 05/04/20 05/04/20 05/04/20 11:31 16:57 23:18 WBC RBC Hgb Hct MCV MCH RDW Plt Count Lymph % (Auto) [place] % (Auto) Eos % (Auto) Lymph # (Auto) [place] # (Auto) Eos # (Auto) Seg Neutrophils % Seg Neuts % (Manual) Lymphocytes % (Manual) Monocytes % (Manual) Basophils % (Manual) Seg Neutrophils # Seg Neutrophils # Man Lymphocytes # (Manual) Monocytes # (Manual) Eosinophils # (Manual) Basophils # (Manual) PT INR D-Dimer ABG pH POC ABG pCO2 POC ABG pO2 ABG pO2 ABG HCO3 ABG O2 Saturation ABG Base Excess ABG Hemoglobin ABG Oxyhemoglobin ABG Potassium ABG Glucose Oxyhemoglobin Carboxyhemoglobin Sodium Potassium Chloride Carbon Dioxide BUN Creatinine Glucose POC Glucose 113 H 126 H 126 H Calcium Ferritin Total Bilirubin Alkaline Phosphatase Lactate Dehydrogenase Total Creatine Kinase CK-MB (CK-2) Rel Index Troponin T C-Reactive Protein Total Protein Albumin Prealbumin LDL Cholesterol Direct HDL Cholesterol Arterial Blood Glucose Arterial Blood Ionized Calcium Urine WBC (Auto) 01/12/1605/05/20 05/05/20 05:32 11:11 23:57 WBC RBC Hgb Hct MCV MCH RDW Plt Count Lymph % (Auto) [place] % (Auto) Eos % (Auto) Lymph # (Auto) [place] # (Auto) Eos # (Auto) Seg Neutrophils % Seg Neuts % (Manual) Lymphocytes % (Manual) Monocytes % (Manual) Basophils % (Manual) Seg Neutrophils # Seg Neutrophils # Man Lymphocytes # (Manual) Monocytes # (Manual) Eosinophils # (Manual) Basophils # (Manual) PT INR D-Dimer ABG pH POC ABG pCO2 POC ABG pO2 ABG pO2 ABG HCO3 ABG O2 Saturation ABG Base Excess ABG Hemoglobin ABG Oxyhemoglobin ABG Potassium ABG Glucose Oxyhemoglobin Carboxyhemoglobin Sodium Potassium Chloride Carbon Dioxide BUN Creatinine Glucose POC Glucose 109 H 124 H 119 H Calcium Ferritin Total Bilirubin Alkaline Phosphatase Lactate Dehydrogenase Total Creatine Kinase CK-MB (CK-2) Rel Index Troponin T C-Reactive Protein Total Protein Albumin Prealbumin LDL Cholesterol Direct HDL Cholesterol Arterial Blood Glucose Arterial Blood Ionized Calcium Urine WBC (Auto) 05/06/20 05/06/20 05/07/20 05:34 23:08 04:43 WBC RBC Hgb 10.1 L Hct 31.9 L MCV 81 L MCH 25 L RDW 17.6 H Plt Count 506 H Lymph % (Auto) [place] % (Auto) 8.6 H Eos % (Auto) Lymph # (Auto) [place] # (Auto) 0.9 H Eos # (Auto) Seg Neutrophils % Seg Neuts % (Manual) Lymphocytes % (Manual) Monocytes % (Manual) Basophils % (Manual) Seg Neutrophils # Seg Neutrophils # Man Lymphocytes # (Manual) Monocytes # (Manual) Eosinophils # (Manual) Basophils # (Manual) PT INR D-Dimer ABG pH POC ABG pCO2 POC ABG pO2 ABG pO2 ABG HCO3 ABG O2 Saturation ABG Base Excess ABG Hemoglobin ABG Oxyhemoglobin ABG Potassium ABG Glucose Oxyhemoglobin Carboxyhemoglobin Sodium Potassium Chloride Carbon Dioxide BUN Creatinine Glucose POC Glucose 121 H 107 H Calcium Ferritin Total Bilirubin Alkaline Phosphatase Lactate Dehydrogenase Total Creatine Kinase CK-MB (CK-2) Rel Index Troponin T C-Reactive Protein Total Protein Albumin Prealbumin LDL Cholesterol Direct HDL Cholesterol Arterial Blood Glucose Arterial Blood Ionized Calcium Urine WBC (Auto) 05/07/20 05/07/20 05/07/20 06:18 17:13 23:29 WBC RBC Hgb Hct MCV MCH RDW Plt Count Lymph % (Auto) [place] % (Auto) Eos % (Auto) Lymph # (Auto) [place] # (Auto) Eos # (Auto) Seg Neutrophils % Seg Neuts % (Manual) Lymphocytes % (Manual) Monocytes % (Manual) Basophils % (Manual) Seg Neutrophils # Seg Neutrophils # Man Lymphocytes # (Manual) Monocytes # (Manual) Eosinophils # (Manual) Basophils # (Manual) PT INR D-Dimer ABG pH POC ABG pCO2 POC ABG pO2 ABG pO2 ABG HCO3 ABG O2 Saturation ABG Base Excess ABG Hemoglobin ABG Oxyhemoglobin ABG Potassium ABG Glucose Oxyhemoglobin Carboxyhemoglobin Sodium Potassium Chloride Carbon Dioxide BUN Creatinine Glucose POC Glucose 121 H 122 H 114 H Calcium Ferritin Total Bilirubin Alkaline Phosphatase Lactate Dehydrogenase Total Creatine Kinase CK-MB (CK-2) Rel Index Troponin T C-Reactive Protein Total Protein Albumin Prealbumin LDL Cholesterol Direct HDL Cholesterol Arterial Blood Glucose Arterial Blood Ionized Calcium Urine WBC (Auto) 05/08/20 05/08/20 05/08/20 05:20 11:57 23:42 WBC RBC Hgb Hct MCV MCH RDW Plt Count Lymph % (Auto) [place] % (Auto) Eos % (Auto) Lymph # (Auto) [place] # (Auto) Eos # (Auto) Seg Neutrophils % Seg Neuts % (Manual) Lymphocytes % (Manual) Monocytes % (Manual) Basophils % (Manual) Seg Neutrophils # Seg Neutrophils # Man Lymphocytes # (Manual) Monocytes # (Manual) Eosinophils # (Manual) Basophils # (Manual) PT INR D-Dimer ABG pH POC ABG pCO2 POC ABG pO2 ABG pO2 ABG HCO3 ABG O2 Saturation ABG Base Excess ABG Hemoglobin ABG Oxyhemoglobin ABG Potassium ABG Glucose Oxyhemoglobin Carboxyhemoglobin Sodium Potassium Chloride Carbon Dioxide BUN Creatinine Glucose POC Glucose 121 H 113 H 135 H Calcium Ferritin Total Bilirubin Alkaline Phosphatase Lactate Dehydrogenase Total Creatine Kinase CK-MB (CK-2) Rel Index Troponin T C-Reactive Protein Total Protein Albumin Prealbumin LDL Cholesterol Direct HDL Cholesterol Arterial Blood Glucose Arterial Blood Ionized Calcium Urine WBC (Auto) 05/09/20 05/09/20 05/09/20 05:31 11:11 16:06 WBC RBC Hgb Hct MCV MCH RDW Plt Count Lymph % (Auto) [place] % (Auto) Eos % (Auto) Lymph # (Auto) [place] # (Auto) Eos # (Auto) Seg Neutrophils % Seg Neuts % (Manual) Lymphocytes % (Manual) Monocytes % (Manual) Basophils % (Manual) Seg Neutrophils # Seg Neutrophils # Man Lymphocytes # (Manual) Monocytes # (Manual) Eosinophils # (Manual) Basophils # (Manual) PT INR D-Dimer ABG pH POC ABG pCO2 POC ABG pO2 ABG pO2 ABG HCO3 ABG O2 Saturation ABG Base Excess ABG Hemoglobin ABG Oxyhemoglobin ABG Potassium ABG Glucose Oxyhemoglobin Carboxyhemoglobin Sodium 136 L Potassium Chloride 97.0 L Carbon Dioxide 34 H BUN Creatinine < 0.2 L Glucose 107 H POC Glucose 66 L 127 H Calcium Ferritin Total Bilirubin Alkaline Phosphatase Lactate Dehydrogenase Total Creatine Kinase CK-MB (CK-2) Rel Index Troponin T C-Reactive Protein Total Protein Albumin Prealbumin LDL Cholesterol Direct HDL Cholesterol Arterial Blood Glucose Arterial Blood Ionized Calcium Urine WBC (Auto) 05/09/20 05/10/20 05/10/20 23:19 04:59 11:28 WBC RBC Hgb Hct MCV MCH RDW Plt Count Lymph % (Auto) [place] % (Auto) Eos % (Auto) Lymph # (Auto) [place] # (Auto) Eos # (Auto) Seg Neutrophils % Seg Neuts % (Manual) Lymphocytes % (Manual) Monocytes % (Manual) Basophils % (Manual) Seg Neutrophils # Seg Neutrophils # Man Lymphocytes # (Manual) Monocytes # (Manual) Eosinophils # (Manual) Basophils # (Manual) PT INR D-Dimer ABG pH POC ABG pCO2 POC ABG pO2 ABG pO2 ABG HCO3 ABG O2 Saturation ABG Base Excess ABG Hemoglobin ABG Oxyhemoglobin ABG Potassium ABG Glucose Oxyhemoglobin Carboxyhemoglobin Sodium Potassium Chloride Carbon Dioxide BUN Creatinine Glucose POC Glucose 108 H 126 H 124 H Calcium Ferritin Total Bilirubin Alkaline Phosphatase Lactate Dehydrogenase Total Creatine Kinase CK-MB (CK-2) Rel Index Troponin T C-Reactive Protein Total Protein Albumin Prealbumin LDL Cholesterol Direct HDL Cholesterol Arterial Blood Glucose Arterial Blood Ionized Calcium Urine WBC (Auto) 05/10/20 05/11/20 05/11/20 23:56 06:13 11:44 WBC RBC Hgb Hct MCV MCH RDW Plt Count Lymph % (Auto) [place] % (Auto) Eos % (Auto) Lymph # (Auto) [place] # (Auto) Eos # (Auto) Seg Neutrophils % Seg Neuts % (Manual) Lymphocytes % (Manual) Monocytes % (Manual) Basophils % (Manual) Seg Neutrophils # Seg Neutrophils # Man Lymphocytes # (Manual) Monocytes # (Manual) Eosinophils # (Manual) Basophils # (Manual) PT INR D-Dimer ABG pH POC ABG pCO2 POC ABG pO2 ABG pO2 ABG HCO3 ABG O2 Saturation ABG Base Excess ABG Hemoglobin ABG Oxyhemoglobin ABG Potassium ABG Glucose Oxyhemoglobin Carboxyhemoglobin Sodium Potassium Chloride Carbon Dioxide BUN Creatinine Glucose POC Glucose 113 H 124 H 125 H Calcium Ferritin Total Bilirubin Alkaline Phosphatase Lactate Dehydrogenase Total Creatine Kinase CK-MB (CK-2) Rel Index Troponin T C-Reactive Protein Total Protein Albumin Prealbumin LDL Cholesterol Direct HDL Cholesterol Arterial Blood Glucose Arterial Blood Ionized Calcium Urine WBC (Auto) 05/12/20 05/12/20 05/12/20 06:04 12:17 17:23 WBC RBC Hgb Hct MCV MCH RDW Plt Count Lymph % (Auto) [place] % (Auto) Eos % (Auto) Lymph # (Auto) [place] # (Auto) Eos # (Auto) Seg Neutrophils % Seg Neuts % (Manual) Lymphocytes % (Manual) Monocytes % (Manual) Basophils % (Manual) Seg Neutrophils # Seg Neutrophils # Man Lymphocytes # (Manual) Monocytes # (Manual) Eosinophils # (Manual) Basophils # (Manual) PT INR D-Dimer ABG pH POC ABG pCO2 POC ABG pO2 ABG pO2 ABG HCO3 ABG O2 Saturation ABG Base Excess ABG Hemoglobin ABG Oxyhemoglobin ABG Potassium ABG Glucose Oxyhemoglobin Carboxyhemoglobin Sodium Potassium Chloride Carbon Dioxide BUN Creatinine Glucose POC Glucose 135 H 136 H 133 H Calcium Ferritin Total Bilirubin Alkaline Phosphatase Lactate Dehydrogenase Total Creatine Kinase CK-MB (CK-2) Rel Index Troponin T C-Reactive Protein Total Protein Albumin Prealbumin LDL Cholesterol Direct HDL Cholesterol Arterial Blood Glucose Arterial Blood Ionized Calcium Urine WBC (Auto) 05/12/20 05/13/20 05/13/20 23:34 05:36 11:25 WBC RBC Hgb Hct MCV MCH RDW Plt Count Lymph % (Auto) [place] % (Auto) Eos % (Auto) Lymph # (Auto) [place] # (Auto) Eos # (Auto) Seg Neutrophils % Seg Neuts % (Manual) Lymphocytes % (Manual) Monocytes % (Manual) Basophils % (Manual) Seg Neutrophils # Seg Neutrophils # Man Lymphocytes # (Manual) Monocytes # (Manual) Eosinophils # (Manual) Basophils # (Manual) PT INR D-Dimer ABG pH POC ABG pCO2 POC ABG pO2 ABG pO2 ABG HCO3 ABG O2 Saturation ABG Base Excess ABG Hemoglobin ABG Oxyhemoglobin ABG Potassium ABG Glucose Oxyhemoglobin Carboxyhemoglobin Sodium Potassium Chloride Carbon Dioxide BUN Creatinine Glucose POC Glucose 141 H 131 H 148 H Calcium Ferritin Total Bilirubin Alkaline Phosphatase Lactate Dehydrogenase Total Creatine Kinase CK-MB (CK-2) Rel Index Troponin T C-Reactive Protein Total Protein Albumin Prealbumin LDL Cholesterol Direct HDL Cholesterol Arterial Blood Glucose Arterial Blood Ionized Calcium Urine WBC (Auto) 05/13/20 05/14/20 05/14/20 16:40 00:11 05:03 WBC RBC Hgb Hct MCV MCH RDW Plt Count Lymph % (Auto) [place] % (Auto) Eos % (Auto) Lymph # (Auto) [place] # (Auto) Eos # (Auto) Seg Neutrophils % Seg Neuts % (Manual) Lymphocytes % (Manual) Monocytes % (Manual) Basophils % (Manual) Seg Neutrophils # Seg Neutrophils # Man Lymphocytes # (Manual) Monocytes # (Manual) Eosinophils # (Manual) Basophils # (Manual) PT INR D-Dimer ABG pH POC ABG pCO2 POC ABG pO2 ABG pO2 ABG HCO3 ABG O2 Saturation ABG Base Excess ABG Hemoglobin ABG Oxyhemoglobin ABG Potassium ABG Glucose Oxyhemoglobin Carboxyhemoglobin Sodium Potassium Chloride Carbon Dioxide BUN Creatinine Glucose POC Glucose 118 H 128 H 129 H Calcium Ferritin Total Bilirubin Alkaline Phosphatase Lactate Dehydrogenase Total Creatine Kinase CK-MB (CK-2) Rel Index Troponin T C-Reactive Protein Total Protein Albumin Prealbumin LDL Cholesterol Direct HDL Cholesterol Arterial Blood Glucose Arterial Blood Ionized Calcium Urine WBC (Auto) 05/14/20 05/15/20 05/16/20 11:38 23:46 05:20 WBC RBC Hgb Hct MCV MCH RDW Plt Count Lymph % (Auto) [place] % (Auto) Eos % (Auto) Lymph # (Auto) [place] # (Auto) Eos # (Auto) Seg Neutrophils % Seg Neuts % (Manual) Lymphocytes % (Manual) Monocytes % (Manual) Basophils % (Manual) Seg Neutrophils # Seg Neutrophils # Man Lymphocytes # (Manual) Monocytes # (Manual) Eosinophils # (Manual) Basophils # (Manual) PT INR D-Dimer ABG pH POC ABG pCO2 POC ABG pO2 ABG pO2 ABG HCO3 ABG O2 Saturation ABG Base Excess ABG Hemoglobin ABG Oxyhemoglobin ABG Potassium ABG Glucose Oxyhemoglobin Carboxyhemoglobin Sodium Potassium Chloride Carbon Dioxide BUN Creatinine Glucose POC Glucose 134 H 107 H 122 H Calcium Ferritin Total Bilirubin Alkaline Phosphatase Lactate Dehydrogenase Total Creatine Kinase CK-MB (CK-2) Rel Index Troponin T C-Reactive Protein Total Protein Albumin Prealbumin LDL Cholesterol Direct HDL Cholesterol Arterial Blood Glucose Arterial Blood Ionized Calcium Urine WBC (Auto) 05/16/20 05/16/20 05/18/20 11:57 23:51 11:18 WBC RBC Hgb Hct MCV MCH RDW Plt Count Lymph % (Auto) [place] % (Auto) Eos % (Auto) Lymph # (Auto) [place] # (Auto) Eos # (Auto) Seg Neutrophils % Seg Neuts % (Manual) Lymphocytes % (Manual) Monocytes % (Manual) Basophils % (Manual) Seg Neutrophils # Seg Neutrophils # Man Lymphocytes # (Manual) Monocytes # (Manual) Eosinophils # (Manual) Basophils # (Manual) PT INR D-Dimer ABG pH POC ABG pCO2 POC ABG pO2 ABG pO2 ABG HCO3 ABG O2 Saturation ABG Base Excess ABG Hemoglobin ABG Oxyhemoglobin ABG Potassium ABG Glucose Oxyhemoglobin Carboxyhemoglobin Sodium Potassium Chloride Carbon Dioxide BUN Creatinine Glucose POC Glucose 108 H 111 H 115 H Calcium Ferritin Total Bilirubin Alkaline Phosphatase Lactate Dehydrogenase Total Creatine Kinase CK-MB (CK-2) Rel Index Troponin T C-Reactive Protein Total Protein Albumin Prealbumin LDL Cholesterol Direct HDL Cholesterol Arterial Blood Glucose Arterial Blood Ionized Calcium Urine WBC (Auto) 05/18/20 05/18/20 05/19/20 16:18 23:38 05:07 WBC RBC Hgb Hct MCV MCH RDW Plt Count Lymph % (Auto) [place] % (Auto) Eos % (Auto) Lymph # (Auto) [place] # (Auto) Eos # (Auto) Seg Neutrophils % Seg Neuts % (Manual) Lymphocytes % (Manual) Monocytes % (Manual) Basophils % (Manual) Seg Neutrophils # Seg Neutrophils # Man Lymphocytes # (Manual) Monocytes # (Manual) Eosinophils # (Manual) Basophils # (Manual) PT INR D-Dimer ABG pH POC ABG pCO2 POC ABG pO2 ABG pO2 ABG HCO3 ABG O2 Saturation ABG Base Excess ABG Hemoglobin ABG Oxyhemoglobin ABG Potassium ABG Glucose Oxyhemoglobin Carboxyhemoglobin Sodium Potassium Chloride Carbon Dioxide BUN Creatinine Glucose POC Glucose 110 H 128 H 121 H Calcium Ferritin Total Bilirubin Alkaline Phosphatase Lactate Dehydrogenase Total Creatine Kinase CK-MB (CK-2) Rel Index Troponin T C-Reactive Protein Total Protein Albumin Prealbumin LDL Cholesterol Direct HDL Cholesterol Arterial Blood Glucose Arterial Blood Ionized Calcium Urine WBC (Auto) 05/19/20 05/19/20 05/19/20 11:36 16:49 23:17 WBC RBC Hgb Hct MCV MCH RDW Plt Count Lymph % (Auto) [place] % (Auto) Eos % (Auto) Lymph # (Auto) [place] # (Auto) Eos # (Auto) Seg Neutrophils % Seg Neuts % (Manual) Lymphocytes % (Manual) Monocytes % (Manual) Basophils % (Manual) Seg Neutrophils # Seg Neutrophils # Man Lymphocytes # (Manual) Monocytes # (Manual) Eosinophils # (Manual) Basophils # (Manual) PT INR D-Dimer ABG pH POC ABG pCO2 POC ABG pO2 ABG pO2 ABG HCO3 ABG O2 Saturation ABG Base Excess ABG Hemoglobin ABG Oxyhemoglobin ABG Potassium ABG Glucose Oxyhemoglobin Carboxyhemoglobin Sodium Potassium Chloride Carbon Dioxide BUN Creatinine Glucose POC Glucose 120 H 110 H 122 H Calcium Ferritin Total Bilirubin Alkaline Phosphatase Lactate Dehydrogenase Total Creatine Kinase CK-MB (CK-2) Rel Index Troponin T C-Reactive Protein Total Protein Albumin Prealbumin LDL Cholesterol Direct HDL Cholesterol Arterial Blood Glucose Arterial Blood Ionized Calcium Urine WBC (Auto) 05/20/20 05/20/20 05/21/20 05:17 23:55 04:18 WBC RBC Hgb 11.2 L Hct 35.4 L MCV 81 L MCH 25 L RDW 18.2 H Plt Count 458 H Lymph % (Auto) [place] % (Auto) 8.8 H Eos % (Auto) 7.2 H Lymph # (Auto) [place] # (Auto) Eos # (Auto) 0.6 H Seg Neutrophils % Seg Neuts % (Manual) Lymphocytes % (Manual) Monocytes % (Manual) Basophils % (Manual) Seg Neutrophils # Seg Neutrophils # Man Lymphocytes # (Manual) Monocytes # (Manual) Eosinophils # (Manual) Basophils # (Manual) PT INR D-Dimer ABG pH POC ABG pCO2 POC ABG pO2 ABG pO2 ABG HCO3 ABG O2 Saturation ABG Base Excess ABG Hemoglobin ABG Oxyhemoglobin ABG Potassium ABG Glucose Oxyhemoglobin Carboxyhemoglobin Sodium Potassium Chloride Carbon Dioxide BUN Creatinine Glucose POC Glucose 133 H 128 H Calcium Ferritin Total Bilirubin Alkaline Phosphatase Lactate Dehydrogenase Total Creatine Kinase CK-MB (CK-2) Rel Index Troponin T C-Reactive Protein Total Protein Albumin Prealbumin LDL Cholesterol Direct HDL Cholesterol Arterial Blood Glucose Arterial Blood Ionized Calcium Urine WBC (Auto) 05/21/20 05/21/20 05/21/20 04:18 05:02 23:53 WBC RBC Hgb Hct MCV MCH RDW Plt Count Lymph % (Auto) [place] % (Auto) Eos % (Auto) Lymph # (Auto) [place] # (Auto) Eos # (Auto) Seg Neutrophils % Seg Neuts % (Manual) Lymphocytes % (Manual) Monocytes % (Manual) Basophils % (Manual) Seg Neutrophils # Seg Neutrophils # Man Lymphocytes # (Manual) Monocytes # (Manual) Eosinophils # (Manual) Basophils # (Manual) PT INR D-Dimer ABG pH POC ABG pCO2 POC ABG pO2 ABG pO2 ABG HCO3 ABG O2 Saturation ABG Base Excess ABG Hemoglobin ABG Oxyhemoglobin ABG Potassium ABG Glucose Oxyhemoglobin Carboxyhemoglobin Sodium Potassium Chloride 97.2 L Carbon Dioxide 35 H BUN Creatinine < 0.2 L Glucose 128 H POC Glucose 125 H 114 H Calcium Ferritin Total Bilirubin Alkaline Phosphatase Lactate Dehydrogenase Total Creatine Kinase CK-MB (CK-2) Rel Index Troponin T C-Reactive Protein Total Protein Albumin Prealbumin LDL Cholesterol Direct HDL Cholesterol Arterial Blood Glucose Arterial Blood Ionized Calcium Urine WBC (Auto) 05/22/20 05/22/20 05/23/20 05:21 11:35 00:06 WBC RBC Hgb Hct MCV MCH RDW Plt Count Lymph % (Auto) [place] % (Auto) Eos % (Auto) Lymph # (Auto) [place] # (Auto) Eos # (Auto) Seg Neutrophils % Seg Neuts % (Manual) Lymphocytes % (Manual) Monocytes % (Manual) Basophils % (Manual) Seg Neutrophils # Seg Neutrophils # Man Lymphocytes # (Manual) Monocytes # (Manual) Eosinophils # (Manual) Basophils # (Manual) PT INR D-Dimer ABG pH POC ABG pCO2 POC ABG pO2 ABG pO2 ABG HCO3 ABG O2 Saturation ABG Base Excess ABG Hemoglobin ABG Oxyhemoglobin ABG Potassium ABG Glucose Oxyhemoglobin Carboxyhemoglobin Sodium Potassium Chloride Carbon Dioxide BUN Creatinine Glucose POC Glucose 127 H 114 H 115 H Calcium Ferritin Total Bilirubin Alkaline Phosphatase Lactate Dehydrogenase Total Creatine Kinase CK-MB (CK-2) Rel Index Troponin T C-Reactive Protein Total Protein Albumin Prealbumin LDL Cholesterol Direct HDL Cholesterol Arterial Blood Glucose Arterial Blood Ionized Calcium Urine WBC (Auto) 05/23/20 05/23/20 05/23/20 05:44 12:07 17:59 WBC RBC Hgb Hct MCV MCH RDW Plt Count Lymph % (Auto) [place] % (Auto) Eos % (Auto) Lymph # (Auto) [place] # (Auto) Eos # (Auto) Seg Neutrophils % Seg Neuts % (Manual) Lymphocytes % (Manual) Monocytes % (Manual) Basophils % (Manual) Seg Neutrophils # Seg Neutrophils # Man Lymphocytes # (Manual) Monocytes # (Manual) Eosinophils # (Manual) Basophils # (Manual) PT INR D-Dimer ABG pH POC ABG pCO2 POC ABG pO2 ABG pO2 ABG HCO3 ABG O2 Saturation ABG Base Excess ABG Hemoglobin ABG Oxyhemoglobin ABG Potassium ABG Glucose Oxyhemoglobin Carboxyhemoglobin Sodium Potassium Chloride Carbon Dioxide BUN Creatinine Glucose POC Glucose 110 H 128 H 125 H Calcium Ferritin Total Bilirubin Alkaline Phosphatase Lactate Dehydrogenase Total Creatine Kinase CK-MB (CK-2) Rel Index Troponin T C-Reactive Protein Total Protein Albumin Prealbumin LDL Cholesterol Direct HDL Cholesterol Arterial Blood Glucose Arterial Blood Ionized Calcium Urine WBC (Auto) 05/24/20 05:09 WBC RBC Hgb Hct MCV MCH RDW Plt Count Lymph % (Auto) [place] % (Auto) Eos % (Auto) Lymph # (Auto) [place] # (Auto) Eos # (Auto) Seg Neutrophils % Seg Neuts % (Manual) Lymphocytes % (Manual) Monocytes % (Manual) Basophils % (Manual) Seg Neutrophils # Seg Neutrophils # Man Lymphocytes # (Manual) Monocytes # (Manual) Eosinophils # (Manual) Basophils # (Manual) PT INR D-Dimer ABG pH POC ABG pCO2 POC ABG pO2 ABG pO2 ABG HCO3 ABG O2 Saturation ABG Base Excess ABG Hemoglobin ABG Oxyhemoglobin ABG Potassium ABG Glucose Oxyhemoglobin Carboxyhemoglobin Sodium Potassium Chloride Carbon Dioxide BUN Creatinine Glucose POC Glucose 115 H Calcium Ferritin Total Bilirubin Alkaline Phosphatase Lactate Dehydrogenase Total Creatine Kinase CK-MB (CK-2) Rel Index Troponin T C-Reactive Protein Total Protein Albumin Prealbumin LDL Cholesterol Direct HDL Cholesterol Arterial Blood Glucose Arterial Blood Ionized Calcium Urine WBC (Auto) Allied health notes reviewed: nursing
[2020-05-24] MEDS: oxyCODONE /ACETAMINOPHEN 5-325MG TAB PO PRN (17:05)
[2020-05-24] MEDS: D5W/0.9% NACL 1,000 ML IV SCH (20:43)
[2020-05-24] MEDS: SENNOSIDES 8.6 MG TAB PO SCH (21:02)
[2020-05-24] MEDS: ZOLPIDEM 5 MG TAB PO PRN (21:02)
[2020-05-24] MEDS: ENOXAPARIN 40 MG/0.4 ML INJ SUB-Q SCH (21:03)
[2020-05-25] MEDS: ACETAMINOPHEN 325 MG TAB PO PRN ×2 (01:44→10:10)
[2020-05-25] MEDS: ALPRAZolam 0.5 MG TAB PO PRN ×3 (06:13→21:32)
[2020-05-25] MEDS: oxyCODONE /ACETAMINOPHEN 5-325MG TAB PO PRN (06:54)
[2020-05-25] MEDS ORDERED: cloNIDine TTS 0.2 MG/24 HR PATCH TD SCH (10:00)
[2020-05-25] MEDS: BACLOFEN 10 MG TAB PO SCH ×2 (10:10→21:30)
[2020-05-25] MEDS: ASPIRIN EC 81 MG TAB PO SCH (10:10)
[2020-05-25] MEDS: GLYCOPYRROLATE 1 MG TAB PO SCH ×3 (10:11→21:30)
[2020-05-25] MEDS: METOPROLOL TARTRATE 25 MG TAB PO SCH ×2 (10:11→21:30)
[2020-05-25] MEDS: PREGABALIN 75 MG CAP PO SCH ×2 (10:11→21:30)
[2020-05-25] MEDS: DOCUSATE SODIUM 100 MG/10 ML ORAL LIQD FEEDTUBE SCH ×2 (10:12→21:31)
[2020-05-25] MEDS: TAMSULOSIN 0.4 MG CAP PO SCH (10:12)
[2020-05-25] MEDS: LANSOPRAZOLE 30 MG SOLUTAB FEEDTUBE SCH (10:12)
[2020-05-25] MEDS: LIDOCAINE 5% 1 EACH PATCH TD SCH (10:12)
[2020-05-25] MEDS: diphenhydrAMINE 25 MG CAP PO PRN (13:00)
[2020-05-25] MEDS: traMADol 50 MG TAB PO PRN (13:00)
--- NOTE | 2020-05-25 13:16 | Progress Note ---
Assessment and Plan --Acute hypoxic hypercapnic respiratory failure; Intubated on mechanical ventilation. Etiology secondary to sepsis, ALS, multifocal pneumonia (Covid negative). S/p trach placement 03/07/20 --Status post cardiac arrest on 02/25, cardiac hernandez now stable --Dysphagia, status post PEG placement for tube feeding --ALS; Chronic Continue to provide supportive care --Elevated D-dimers; CTA chest, lower extremity venous Doppler both are negative Lovenox for DVT prophylaxis --Bilateral pneumonia; probably community-acquired Completed treatment ID recommendations appreciated --Sepsis secondary to pneumonia s/p empiric antibiotic --Elevated troponin; Serial cardiac enzymes, serial EKGs Echocardiogram, cardiology consult if needed --Hypernatremia Trend sodium Free water via feeding tube --Abdominal distention due to bladder outlet obstruction, resolved CT abdomen showed bladder outlet obstruction, urology consulted s/p drake placement by urology on 03/09 --Hypotension possibly from septic shock and bladder outlet obstruction improved following placing drake --Hypernatremia due to hypovolumia, resolved free water with TF --Constipation; Patient already received Dulcolax suppository and Colace Received milk of magnesia, with relief --DVT prophylaxis; Lovenox Brief history: 59-year-old male patient with significant past medical history of ALS, presented to ED with worsening shortness of breath since the morning [employer]. Patient was on a trilogy machine for breathing 18/11. EMS arrived, patient had O2 sats in the 80s. EMS attempted to place patient on their CPAP machine, however patient did not tolerate. Patient was admitted to the ICU with diagnosis of acute hypoxic respiratory failure and placed on BiPAP. Patient initially tolerated but later deteriorated with respiratory status. CTA chest showed no PE but significant for bilateral pneumonia. Doppler ultrasound also negative for DVT. COVID-19 test ordered and negative. Due to persistent hypoxia and asystolic/V. fib cardiac arrest, patient was intubated on 02/26/2020 at 1500. Patient now on mechanical ventilation in the ICU s/p trach placement and now unable to wean off from the mechanical ventilation. Patient now status post PEG placement for tube feeding. Patient most likely need long-term placement -LTAC versus SNF Daily course: 02/25/2020. CTA of the chest reveals no PE but does illustrate the bilateral pneumonia. Doppler ultrasound also negative for DVT. Blood cultures are pe nding. Await COVID-19 testing. Patient currently requiring BiPAP IPAP 24/EPAP 6 with FiO2 of 25%. Continue O2 and BiPAP as clinically indicated. ID and pulmonary consulted. 02/26/2020. Blood cultures are negative x48 hours and Covid testing negative as well. Continue antibiotics per ID recommendations for community-acquired bilateral pneumonia. Cardiology consultation for elevated troponin. Check echocardiogram. 02/27/2020. Events of yesterday noted with asystole following V. fib arrest. Patient currently on AC mode rate 20, tidal volume 400, FiO2 50% and a PEEP of 6. Follow-up echocardiogram for elevated troponin. Cardiology suspects NSTEMI Type 2 in the setting of acute resp failure. Chest CTA and BLE Dopplers neg. we will discontinue Decadron given the Covid PCR is negative. 02/28/2020. I spoke with the sister Felisa Eli who is the power of defense attorney regarding advanced directives and she instructed me that she would like to continue with aggressive care at this time. I informed her of the guarded prognosis and high mortality/morbidity and she voiced understanding. Patient currently with AC mode ventilation rate 18, tidal volume 400, FiO2 40% and a PEEP of 6. Continue antibiotics for pneumonia. ID previously consulted. Also consult neurology with regards to ALS. 02/29/2020; patient is intubated and on CPAP patient is alert and oriented. Patient has ALS. Dr. Álvarez spoke with his sister and she wants aggressive care. Continue antibiotics for pneumonia. Neurology consulted for ALS. Prognosis poor 03/01/2020; patient is intubated and on CPAP, patient is alert and oriented. I spoke with his 2 sisters about the management plan. 03/02/2020; patient is intubated and on CPAP. Patient was alert and oriented. I spoke with Dr. mohr and he thinks patient may need mechanical ventilation, likely his disease progressed. Dr. Flowers did debridement this morning. 03/03/2020; patient is intubated and on CPAP, patient was on trilogy and BiPAP at home. Patient has ALS. on spontaneous breathing trial. Patient is alert and oriented but quadriplegic. Patient has severe bilateral pneumonia and is on cefepime and Vanco, ID is following. Patient has sacral decubitus ulcer and debridement was done by Dr. Flowers and there is no osteomyelitis. 03/05. Patient still on broad-spectrum antibiotics. Status post sacral decubitus ulcer debridements-no osteomyelitis. Patient is on AC 25/400/30% PEEP 5. No blood gas results today. 03/06. Plan for tracheostomy by surgery. Still remains intubated. Labs reviewed-sodium 150. Started on free water 200 every 8hr. trend sodium. 03/07: s/p trach placement today, patient placed back on mechanical ventilation with trach. Plan to resume tube feeding with NG tube. Continue to monitor vitals, monitor BMP. 03/08: Patient noted to have distended abdomen with low urinary output. Obtain bladder scan rule out urine retention, UA and urine culture, continue to follow clinically. 03/09: Patient noted to have low blood pressure with SBP as low as 70s. Ordered for 500 mils normal saline bolus. CT abdomen showed bladder outlet obstruction, urology consulted. 03/10: placed on drake by urology o/n, improved urine outpt. cont to monitor BMP. resuded TF - cont free water with TF. wean off from vent as tolerated. 03/11: Vitals stable. cont TF, wean off from vent as tolerated. start on 1/2 NS for hypernatremia - follow BMP 03/12: wean off vent as tolerated, plan for speech eval, cont Tf for now, cont iv fluid 03/13: unable to wean off from vent, unable to do speech therapy eval. will need PEG tube, cont supportive care for now, cont NG tube feeding 03/14: consulted GI for PEg placemnet, cont supportive care. remains on vent at night 03/15: Discussed with GI, plan for PEG tube placement possibly tomorrow. Continue supportive care and wean off from vent as tolerated. Hold Lovenox dose tonight. 03/16: family didnot consent for PEG placement yesterday. I spoke with the megan rodriguez today and she is now agreeable for PEG tube. I explained the necessity of the procedure with RN to the patient also and he nodded started on tube feeding, for the procedure. will cont supportive care. planned for PEG tube placement tomorrow. 03/17: s/p PEG placement today, patient tolerated well, cont supportive care 03/18: Started on tube feeding with new PEG tube, continue to wean off vent as tolerated 03/19: cont to monitor with supportive care, wean off vent as tolerated 03/20: Continue to wean off vent as tolerated -but failing weaning trial. Still requiring vent support at night. Currently on PEG tube for tube feed. 03/21. Pt with PSV trials with FiO@ 30%, PEEP 6, PS 10. Currently on PEG tube for tube feed. 03/22/2020. Continue PSV trials per pulmonary. Continue bronchodilators. Patient tolerating tube feedings. Continue Robinul for secretion control. 03/23/2020. Continue PSV trials per pulmonary. Continue bronchodilators. Continue Scopolamine and Robinul for secretion control. Trach care/airway management. Mobility protocols for pressure ulcer prophylaxis. LTAC evaluation per case management 03/24/2020. Continue PSV trials with current settings pressure support 10, PEEP 6 and FiO2 30%. Continue bronchodilators/nebulizer. Continue Scopolamine and Robinul for secretion control. Trach care/airway management. Mobility protocols for pressure ulcer prophylaxis. LTAC evaluation per case management 03/25/2020. Pulmonary to proceed with T-piece trials today. Continue bronchodilators/nebulizer. Continue Scopolamine and Robinul for secretion control. Trach care/airway management. Mobility protocols for pressure ulcer prophylaxis. 03/26/2020. Patient currently with PSV 10/6 at FiO2 of 30%. Continue weaning and T-piece trials per protocol. Continue bronchodilators/nebulizer. Continue Scopolamine and Robinul for secretion control. Trach care/airway management. Mobility protocols for pressure ulcer prophylaxis. Continue tube feeding with aspiration precautions. 03/27/2020. Patient currently with PSV 10/6 at FiO2 of 30%. Continue weaning and T-piece trials per protocol. Continue bronchodilators/nebulizer. Continue Scopolamine and Robinul for secretion control. Trach care/airway management. Mobility protocols for pressure ulcer prophylaxis. Continue tube feeding with aspiration precautions. 03/28. Had temp 100.7F. He has been off antibiotics. Will send blood culture, ua, urine culture and chest xray. Had chest pain overnight and trop was elevated as well. Cardiology to evaluate 03/29. Has back pain due to position. He mentions his chest pain is positional. Has no other complaints. Still on mechanical ventilation 03/30. No chest pain today. Labs reviewed. Discussed chest pain with cardiology and team advised no further work up at this time. Can follow up with cardiology in the office after hospitalization 03/31. Lidocaine patch for lower back pain. 04/01. Discharge planning underway. CM notes reviewed. Discussed with daughter 04/02. CM trying to arrange discharge. Continue PSV trials. Discussed with patients significant other 04/04/2020; CM is working for discharge arrangement. Continue PSV trials. 04/05/2020; patient was seen and evaluated this morning and no change from baseline. Continue with PSV trials. Follow with dish machine operator for discharge planning. 04/06/2020;patient was seen and evaluated this morning and no change from baseline. Continue with PSV trials. Follow with dish machine operator for discharge planning. 04/07/2020; patient was seen and evaluated this morning and no change from baseline. Continue with PSV trials. Follow with dish machine operator for discharge planning. 04/08/2020; patient is vent dependent. Discharge is per dish machine operator. 04/09/2020 patient is vent dependent, possible LTAC placement 04/10/2020; tracheostomy on vent, vent dependent pending LTAC placement 04/11/2020; clinically no change, tracheostomy on ventilatory support, wean as tolerated, awaiting placement 04/12/2020; remains on ventilatory support, unable to wean, patient wants to see a speech therapist for sound box However we cannot try that as long as he is on ventilatory support, once he is weaned off vent We will consult speech therapist, plan of care reviewed with the patient and his nurse 04/14/2020; clinically no change, on ventilatory support, complains of constipation, milk of magnesia Closely monitor the patient and adjust the management as needed 04/15/2020; patient has some oral thrush on the tongue, will give Magic mouthwash/nystatin swish and spit Wean off vent as tolerated 04/16 patient is alert and oriented, unable to comprehend what he is trying to tell but appears to complain of some pain, no acute events overnight, all interdisciplinary notes reviewed. Waiting for LTAC versus correction facility placement 04/17/2020. Continue supportive care with mechanical ventilation. Patient currently on AC mode rate 10, tidal volume 400 FiO2 30% with a PEEP of 6. Discharge planning per case management. 04/18/2020. Patient remains on mechanical ventilation AC mode rate 10, tidal volume 400, FiO2 30% and PEEP of 6. Continue spontaneous breathing trials as tolerated. Previously, patient was considered for discharge home with skilled staff providing care for 12 hours 7 days/week. Continue discussed with case management discharge planning. 04/19/20. Patient remains on mechanical ventilation AC mode rate 10, tidal volume 400, FiO2 30% and PEEP of 6. Continue spontaneous breathing trials as tolerated. 04/20/2020. Patient remains on mechanical ventilation AC mode rate 10, tidal volume 400, FiO2 30% and PEEP of 6. Continue spontaneous breathing trials as tolerated. 04/21/2020. Patient remains on mechanical ventilation AC mode rate 10, tidal volume 400, FiO2 30% and PEEP of 6. Continue tracheostomy care, secretion control and airway management. Continue spontaneous breathing trials as tolerated. 04/22/2020. Patient remains on mechanical ventilation AC mode rate 10, tidal volume 400, FiO2 30% and PEEP of 6. Continue tracheostomy care, secretion control and airway management. Continue spontaneous breathing trials as tolera milana. 04/23/2020. Patient on mechanical ventilation AC mode rate 18, tidal volume 450, FiO2 30% and PEEP of 6. Continue tracheostomy care, secretion control and airway management. Continue spontaneous breathing trials as tolerated. Continue Robinul and scopolamine for secretions. Continue baclofen. 04/24/2020. Patient remains on AC mode ventilation rate 10, tidal volume 400, FiO2 30% and PEEP of 6. Continue tracheostomy care, secretion control and airway management. Continue spontaneous breathing trials as tolerated. Continue Robinul and scopolamine for secretions. Continue baclofen. Continue Xanax for anxiety and Ambien for sleep. Await case management follow-up with regards to discharge planning. 04/25/2020. Patient remains on AC mode ventilation rate 10, tidal volume 400, FiO2 30% and PEEP of 6. Continue tracheostomy care, secretion control and airway management. Continue spontaneous breathing trials as tolerated. Continue Robinul and scopolamine for secretions. Continue baclofen. Continue Xanax for anxiety and Ambien for sleep. Await case management follow-up with regards to discharge planning. 04/26. Patient remains on AC mode ventilation rate 10, tidal volume 400, FiO2 30% and PEEP of 6. Continue tracheostomy care, secretion control and airway management. Continue spontaneous breathing trials as tolerated. Continue Robinul and scopolamine for secretions. Continue baclofen. Continue Xanax for anxiety and Ambien for sleep. Await case management follow-up with regards to discharge planning. 04/27. Patient remains on AC mode ventilation rate 10, tidal volume 400, FiO2 30% and PEEP of 6. Continue tracheostomy care, secretion control and airway management. Continue spontaneous breathing trials as tolerated. Continue Robinul and scopolamine for secretions. Continue baclofen. Continue Xanax for anxiety and Ambien for sleep. Await case management follow-up with regards to discharge planning. 04/28/20 no acute events overnight, remains vent dependent, cardiology and pulmonary notes reviewed 04/29 remains intubated via tracheostomy, no acute events 04/30 no acute events overnight, cardiology note reviewed, remains vent dependent, discharge planning per case management 05/01 stable. cardiology and pulmonary notes reviewed. D/C acu-checks 05/02 - todate: Clinically stable, remains on vent with trach tube. CM working on placement. Continue supportive care. plan possibly to d/c home with HH, patient refusing SNF placement Subjective Date of service: 05/25/20 Principal diagnosis: Ac on Ch Hypercapnic & hypoxemic Resp Failure; Severe Sepsis; Jamar PNA; ALS Interval history: Patient seen and examined Remains on trach tube Discussed with RN at the bedside Vitals reviewed -BP stable Tolerating tube feeding with PEG tube Objective - Exam Narrative Exam: GENERAL: Awake. Intubated with trach tube HEAD: No signs of head trauma. EYES: Pupils are equal. Extraocular motions intact. EARS: Hearing grossly intact. MOUTH: Oropharynx is normal. NECK: No adenopathy, no JVD. CHEST: Coarse breath sounds bilaterally CARDIAC: Regular rate and rhythm. S1 and S2, without murmurs, gallops, or rubs. VASCULAR: No Edema. Peripheral pulses normal and equal in all extremities. ABDOMEN: Soft, non tender and nondistended. Bowel Sounds normal. PEG in place NEUROLOGIC EXAM: Awake, paraplegic SKIN: No obvious lesions - Constitutional Vitals: Vital Signs - 12hr 05/25/20 05/25/20 05/25/20 01:44 02:00 02:44 Temperature Pulse Rate 112 H Respiratory 25 H 24 20 Rate Blood Pressure 141/93 O2 Sat by Pulse 99 Oximetry O2 Sat by Pulse Oximetry [ Assessment] 05/25/20 05/25/20 05/25/20 03:00 03:36 03:44 Temperature Pulse Rate 102 H 123 H 106 H Respiratory 16 Rate Blood Pressure 128/88 128/88 O2 Sat by Pulse 98 100 Oximetry O2 Sat by Pulse Oximetry [ Assessment] 05/25/20 05/25/20 05/25/20 03:45 03:48 04:00 Temperature 97.8 F Pulse Rate 104 H Respiratory 20 Rate Blood Pressure 128/88 O2 Sat by Pulse 98 Oximetry O2 Sat by Pulse 100 Oximetry [ Assessment] 05/25/20 05/25/20 05/25/20 05:00 06:01 06:54 Temperature Pulse Rate 109 H 103 H Respiratory 22 26 H 16 Rate Blood Pressure 148/75 148/75 O2 Sat by Pulse 95 92 Oximetry O2 Sat by Pulse Oximetry [ Assessment] 05/25/20 05/25/20 05/25/20 07:56 08:00 10:11 Temperature 97.9 F Pulse Rate 111 H 102 H Respiratory 27 H Rate Blood Pressure 162/106 165/89 O2 Sat by Pulse 96 Oximetry O2 Sat by Pulse 100 Oximetry [ Assessment] 05/25/20 12:00 Temperature 97.9 F Pulse Rate Respiratory Rate Blood Pressure O2 Sat by Pulse Oximetry O2 Sat by Pulse Oximetry [ Assessment] - Labs CBC & Chem 7: 05/21/20 04:18 05/21/20 04:18 Labs: Abnormal lab results 05/24/20 05/25/20 Range/Units 23:05 05:33 POC Glucose 113 H 118 H (70-105) mg/dL HEART Score - HEART Score Troponin: Troponin T 0.181 ng/mL (0.00-0.029) H* 04/24/20 05:28
--- NOTE | 2020-05-25 14:52 | Progress Note ---
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 Respiratory Failure Severe Sepsis with Shock Bilateral Pneumonia (Possible aspiration) History of ALS on Trilogy Oropharyngeal Dysphagia PUI-COVID Acute toxic metabolic encephalopathy Elevated D-dimer Elevated troponin possibly type 2 ischemia - will repeat CXR if desaturates - discharge planning still ongoing for home ventilator - continue daily SBT's as tolerated; t-piece trial attempts as tolerated (PSV if fails) - remains ventilator dependent; refusing SBT's at time and not tolerating t- piece when tried - continue care as below; - continue home meds re: chronic pain (Baclofen, Lyrica) - repeat CXR prn +/- bronchoscopy for mucus plugging / large volume atelectasis - continue psychoactive meds for anxiolysis - continue Robinul & scopolamine for secretion control - prn electrolytes and optimize K+ & Mg 2+ for best respiratory muscle function - wound care per RN/WCN - wean supplemental oxygen for target O2 sat's > 90% acutely - bronchodilators with pulmonary hygiene per RT - VAP bundle addressed - continue lung protective strategies - continue bronchodilators with pulmonary hygiene per RT - wean per pulmonary driven protocols otherwise - sedation prn for target RASS 0 to -1 - s/p empiric antiinfectives per ID rec's (Rocephin and Zithromax) - s/p COVID-19 isolation (Airborne & Contact) - s/p Dexamethasone - enteral nutrition at goal rate as tolerated - accuchecks with glycemic control per SSI (While critically ill target blood glucose of 140-180 mg/dL; avoid hypoglycemia) - avoid nephrotoxins, renally dose all medications - avoid benzodiazepine's, reduce the possibility of delirium - prn analgesia per CPOT score - Maintenance of sleep-wake cycle, avoid delirium - aspiration precautions - G.I. & VTE prophylaxis - PT/OT/ROM exercises - mobility protocols for pressure ulcer prophylaxis - Monitor hemodynamics closely - continue other care per attending / other consultants - discharge planning ongoing concurrently .... Re-evaluate in am & prn CONDITION: CRITICAL PROGNOSIS: GUARDED CODE STATUS: FULL CODE The high probability of a clinically significant, sudden or life-threatening deterioration of the [respiratory, cardiovascular & neurologic] system(s) required my full and direct attention, intervention and personal management. The aggregate critical care time was [33] minutes without overlap. Time includes spent on; [x] Data Review and interpretation [x] Patient assessment and monitoring of vital signs [x] Documentation [x] Medication orders and management Subjective Date of service: 05/25/20 Principal diagnosis: Ac on Ch Hypercapnic & hypoxemic Resp Failure; Severe Sepsis; Jamar PNA; ALS Interval history: Patient is seen today for: Acute on Chronic Hypercapnic & hypoxemic Respiratory Failure; Severe Sepsis with Shock; Bilateral Pneumonia (Possible aspiration); History of ALS on Trilogy; PUI-COVID; Acute toxic metabolic encephalopathy Seen and examined at bedside; 24hour events reviewed; nursing and respiratory care staff consulted; no adverse overnight events reported to me; resting in bed; remains on MVS; Objective Vital Signs - 12hr 05/25/20 05/25/20 05/25/20 03:00 03:36 03:44 Temperature Pulse Rate 102 H 123 H 106 H Respiratory 16 Rate Blood Pressure 128/88 128/88 O2 Sat by Pulse 98 100 Oximetry O2 Sat by Pulse Oximetry [ Assessment] 05/25/20 05/25/20 05/25/20 03:45 03:48 04:00 Temperature 97.8 F Pulse Rate 104 H Respiratory 20 Rate Blood Pressure 128/88 O2 Sat by Pulse 98 Oximetry O2 Sat by Pulse 100 Oximetry [ Assessment] 05/25/20 05/25/20 05/25/20 05:00 06:01 06:54 Temperature Pulse Rate 109 H 103 H Respiratory 22 26 H 16 Rate Blood Pressure 148/75 148/75 O2 Sat by Pulse 95 92 Oximetry O2 Sat by Pulse Oximetry [ Assessment] 05/25/20 05/25/20 05/25/20 07:56 08:00 10:11 Temperature 97.9 F Pulse Rate 111 H 102 H Respiratory 27 H Rate Blood Pressure 162/106 165/89 O2 Sat by Pulse 96 Oximetry O2 Sat by Pulse 100 Oximetry [ Assessment] 05/25/20 12:00 Temperature 97.9 F Pulse Rate Respiratory Rate Blood Pressure O2 Sat by Pulse Oximetry O2 Sat by Pulse Oximetry [ Assessment] Constitutional: appears uncomfortable, other (thin middle aged male with mildly increased respiratory effort at rest on MVS) Eyes: non-icteric ENT: oropharynx moist, other (S/P Tracheostomy) Neck: supple, no lymphadenopathy, no JVD Effort: mildly labored Ascultation: Bilateral: clear, diminished breath sounds (bases), wheezes, rhonchi (scant in bases) Percussion: Bilateral: not dull Cardiovascular: regular rate and rhythm, other (S1,S2, no murmurs) Gastrointestinal: normoactive bowel sounds, soft, non-tender, non-distended Integumentary: normal, decubitus ulcer (sacral / gluteal) Extremities: no cyanosis, no edema, pulses normal, other (atrophic looking limbs) Neurologic: pupils equal and round, other (motor strength in extremities 1-2/5, awake, alert, mouths words to make needs known) Psychiatric: depressed CBC and BMP: 05/21/20 04:18 05/21/20 04:18 ABG, PT/INR, D-dimer: ABG ABG pH 7.371 (7.320-7.450) 03/08/20 12:34 POC ABG pCO2 63.1 mmHg (32.0-48.0) H 03/08/20 12:34 ABG pCO2 60.1 mm Hg 03/06/20 04:34 POC ABG pO2 90.5 mmHg (83-108) 03/08/20 12:34 ABG pO2 88.6 mm Hg (80.0-90.0) 03/06/20 04:34 POC ABG HCO3 35.7 03/08/20 12:34 ABG O2 Saturation 97.0 % (95.0-99.0) 03/06/20 04:34 PT/INR, D-dimer PT 15.6 Sec. (12.2-14.9) H 02/24/20 09:19 INR 1.21 (0.87-1.13) H 02/24/20 09:19 D-Dimer 1311.96 ng/mlDDU (0-234) H 02/24/20 09:19 Abnormal lab findings: Abnormal Labs 02/24/20 02/24/20 02/24/20 09:19 09:19 09:19 WBC 20.2 H RBC 5.05 H Hgb Hct MCV MCH RDW 15.3 H Plt Count Lymph % (Auto) [place] % (Auto) Eos % (Auto) Lymph # (Auto) [place] # (Auto) Eos # (Auto) Seg Neutrophils % Seg Neuts % (Manual) 86.0 H Lymphocytes % (Manual) 1.0 L Monocytes % (Manual) Basophils % (Manual) Seg Neutrophils # Seg Neutrophils # Man 17.4 H Lymphocytes # (Manual) 0.2 L Monocytes # (Manual) Eosinophils # (Manual) Basophils # (Manual) PT 15.6 H INR 1.21 H D-Dimer 1311.96 H ABG pH POC ABG pCO2 POC ABG pO2 ABG pO2 ABG HCO3 ABG O2 Saturation ABG Base Excess ABG Hemoglobin ABG Oxyhemoglobin ABG Potassium ABG Glucose Oxyhemoglobin Carboxyhemoglobin Sodium 135 L Potassium 3.2 L Chloride 92.2 L Carbon Dioxide BUN 6 L Creatinine < 0.2 L Glucose 124 H POC Glucose Calcium Ferritin Total Bilirubin 2.30 H Alkaline Phosphatase 132 H Lactate Dehydrogenase Total Creatine Kinase CK-MB (CK-2) Rel Index Troponin T 0.080 H C-Reactive Protein Total Protein Albumin 3.6 L Prealbumin LDL Cholesterol Direct 41 L HDL Cholesterol Arterial Blood Glucose Arterial Blood Ionized Calcium Urine WBC (Auto) 02/24/20 02/24/20 02/24/20 09:19 09:58 10:01 WBC RBC Hgb Hct MCV MCH RDW Plt Count Lymph % (Auto) [place] % (Auto) Eos % (Auto) Lymph # (Auto) [place] # (Auto) Eos # (Auto) Seg Neutrophils % Seg Neuts % (Manual) Lymphocytes % (Manual) Monocytes % (Manual) Basophils % (Manual) Seg Neutrophils # Seg Neutrophils # Man Lymphocytes # (Manual) Monocytes # (Manual) Eosinophils # (Manual) Basophils # (Manual) PT INR D-Dimer ABG pH 7.176 L* POC ABG pCO2 POC ABG pO2 ABG pO2 91.2 H ABG HCO3 ABG O2 Saturation ABG Base Excess -4.6 L ABG Hemoglobin ABG Oxyhemoglobin ABG Potassium ABG Glucose Oxyhemoglobin 92.6 L Carboxyhemoglobin Sodium Potassium Chloride Carbon Dioxide BUN Creatinine Glucose POC Glucose Calcium Ferritin 1715.0 H Total Bilirubin Alkaline Phosphatase Lactate Dehydrogenase 303 H Total Creatine Kinase CK-MB (CK-2) Rel Index Troponin T C-Reactive Protein 26.10 H Total Protein Albumin Prealbumin LDL Cholesterol Direct HDL Cholesterol Arterial Blood Glucose Arterial Blood Ionized Calcium Urine WBC (Auto) 02/24/20 02/24/20 02/24/20 11:52 13:45 19:35 WBC RBC Hgb Hct MCV MCH RDW Plt Count Lymph % (Auto) [place] % (Auto) Eos % (Auto) Lymph # (Auto) [place] # (Auto) Eos # (Auto) Seg Neutrophils % Seg Neuts % (Manual) Lymphocytes % (Manual) Monocytes % (Manual) Basophils % (Manual) Seg Neutrophils # Seg Neutrophils # Man Lymphocytes # (Manual) Monocytes # (Manual) Eosinophils # (Manual) Basophils # (Manual) PT INR D-Dimer ABG pH 7.051 L* 7.300 L POC ABG pCO2 POC ABG pO2 ABG pO2 94.7 H 75.1 L ABG HCO3 18.0 L ABG O2 Saturation 93.5 L ABG Base Excess -6.8 L -7.8 L ABG Hemoglobin 13.2 L 11.9 L ABG Oxyhemoglobin ABG Potassium ABG Glucose Oxyhemoglobin 91.0 L 92.7 L Carboxyhemoglobin Sodium Potassium Chloride Carbon Dioxide BUN Creatinine Glucose POC Glucose Calcium Ferritin Total Bilirubin Alkaline Phosphatase Lactate Dehydrogenase Total Creatine Kinase CK-MB (CK-2) Rel Index Troponin T 0.034 H D C-Reactive Protein Total Protein Albumin Prealbumin LDL Cholesterol Direct HDL Cholesterol Arterial Blood Glucose Arterial Blood Ionized Calcium Urine WBC (Auto) 02/25/20 02/25/20 02/25/20 04:00 04:00 12:26 WBC 22.9 H RBC Hgb Hct MCV 83 L MCH 27 L RDW Plt Count 468 H Lymph % (Auto) [place] % (Auto) Eos % (Auto) Lymph # (Auto) [place] # (Auto) Eos # (Auto) Seg Neutrophils % Seg Neuts % (Manual) 89.0 H Lymphocytes % (Manual) 7.0 L Monocytes % (Manual) Basophils % (Manual) Seg Neutrophils # Seg Neutrophils # Man 20.4 H Lymphocytes # (Manual) Monocytes # (Manual) Eosinophils # (Manual) Basophils # (Manual) PT INR D-Dimer ABG pH POC ABG pCO2 POC ABG pO2 ABG pO2 ABG HCO3 ABG O2 Saturation ABG Base Excess ABG Hemoglobin ABG Oxyhemoglobin ABG Potassium 2.6 L ABG Glucose 142 H Oxyhemoglobin Carboxyhemoglobin Sodium Potassium 3.2 L Chloride Carbon Dioxide 18 L BUN Creatinine 0.2 L Glucose 114 H POC Glucose Calcium Ferritin Total Bilirubin Alkaline Phosphatase Lactate Dehydrogenase Total Creatine Kinase CK-MB (CK-2) Rel Index Troponin T C-Reactive Protein Total Protein Albumin 3.5 L Prealbumin LDL Cholesterol Direct HDL Cholesterol Arterial Blood Glucose 142 H Arterial Blood Ionized Calcium Urine WBC (Auto) 02/26/20 02/26/20 02/26/20 15:58 17:00 23:43 WBC RBC Hgb Hct MCV MCH RDW Plt Count Lymph % (Auto) [place] % (Auto) Eos % (Auto) Lymph # (Auto) [place] # (Auto) Eos # (Auto) Seg Neutrophils % Seg Neuts % (Manual) Lymphocytes % (Manual) Monocytes % (Manual) Basophils % (Manual) Seg Neutrophils # Seg Neutrophils # Man Lymphocytes # (Manual) Monocytes # (Manual) Eosinophils # (Manual) Basophils # (Manual) PT INR D-Dimer ABG pH 7.502 H POC ABG pCO2 POC ABG pO2 213.6 H ABG pO2 ABG HCO3 ABG O2 Saturation ABG Base Excess ABG Hemoglobin ABG Oxyhemoglobin 99.2 H ABG Potassium 2.9 L ABG Glucose 160 H Oxyhemoglobin Carboxyhemoglobin 0.4 L Sodium Potassium Chloride Carbon Dioxide BUN Creatinine Glucose POC Glucose 189 H 120 H Calcium Ferritin Total Bilirubin Alkaline Phosphatase Lactate Dehydrogenase Total Creatine Kinase CK-MB (CK-2) Rel Index Troponin T C-Reactive Protein Total Protein Albumin Prealbumin LDL Cholesterol Direct HDL Cholesterol Arterial Blood Glucose 160 H Arterial Blood Ionized Calcium 4.5 L Urine WBC (Auto) 02/27/20 02/27/20 02/27/20 05:00 07:04 17:45 WBC RBC Hgb Hct MCV MCH RDW Plt Count Lymph % (Auto) [place] % (Auto) Eos % (Auto) Lymph # (Auto) [place] # (Auto) Eos # (Auto) Seg Neutrophils % Seg Neuts % (Manual) Lymphocytes % (Manual) Monocytes % (Manual) Basophils % (Manual) Seg Neutrophils # Seg Neutrophils # Man Lymphocytes # (Manual) Monocytes # (Manual) Eosinophils # (Manual) Basophils # (Manual) PT INR D-Dimer ABG pH 7.524 H POC ABG pCO2 POC ABG pO2 ABG pO2 ABG HCO3 ABG O2 Saturation ABG Base Excess ABG Hemoglobin ABG Oxyhemoglobin ABG Potassium 3.0 L ABG Glucose 143 H Oxyhemoglobin Carboxyhemoglobin Sodium Potassium Chloride Carbon Dioxide BUN Creatinine Glucose POC Glucose 154 H 175 H Calcium Ferritin Total Bilirubin Alkaline Phosphatase Lactate Dehydrogenase Total Creatine Kinase CK-MB (CK-2) Rel Index Troponin T C-Reactive Protein Total Protein Albumin Prealbumin LDL Cholesterol Direct HDL Cholesterol Arterial Blood Glucose 143 H Arterial Blood Ionized Calcium Urine WBC (Auto) 02/27/20 02/28/20 02/28/20 Unknown 00:21 04:15 WBC 18.7 H RBC Hgb Hct MCV MCH RDW Plt Count Lymph % (Auto) 8.7 L [place] % (Auto) Eos % (Auto) Lymph # (Auto) [place] # (Auto) 1.2 H Eos # (Auto) Seg Neutrophils % 84.6 H Seg Neuts % (Manual) Lymphocytes % (Manual) Monocytes % (Manual) Basophils % (Manual) Seg Neutrophils # 15.9 H Seg Neutrophils # Man Lymphocytes # (Manual) Monocytes # (Manual) Eosinophils # (Manual) Basophils # (Manual) PT INR D-Dimer ABG pH POC ABG pCO2 POC ABG pO2 ABG pO2 ABG HCO3 ABG O2 Saturation ABG Base Excess ABG Hemoglobin ABG Oxyhemoglobin ABG Potassium ABG Glucose Oxyhemoglobin Carboxyhemoglobin Sodium Potassium 2.9 L* Chloride Carbon Dioxide 33 H D BUN Creatinine < 0.2 L Glucose 157 H POC Glucose 134 H Calcium Ferritin Total Bilirubin Alkaline Phosphatase Lactate Dehydrogenase Total Creatine Kinase CK-MB (CK-2) Rel Index Troponin T C-Reactive Protein Total Protein Albumin Prealbumin LDL Cholesterol Direct HDL Cholesterol Arterial Blood Glucose Arterial Blood Ionized Calcium Urine WBC (Auto) 02/28/20 02/28/20 02/28/20 04:15 05:16 05:39 WBC RBC Hgb Hct MCV MCH RDW Plt Count Lymph % (Auto) [place] % (Auto) Eos % (Auto) Lymph # (Auto) [place] # (Auto) Eos # (Auto) Seg Neutrophils % Seg Neuts % (Manual) Lymphocytes % (Manual) Monocytes % (Manual) Basophils % (Manual) Seg Neutrophils # Seg Neutrophils # Man Lymphocytes # (Manual) Monocytes # (Manual) Eosinophils # (Manual) Basophils # (Manual) PT INR D-Dimer ABG pH POC ABG pCO2 POC ABG pO2 ABG pO2 142.9 H ABG HCO3 34.1 H ABG O2 Saturation ABG Base Excess 8.3 H ABG Hemoglobin ABG Oxyhemoglobin ABG Potassium ABG Glucose Oxyhemoglobin Carboxyhemoglobin Sodium 151 H Potassium Chloride Carbon Dioxide 32 H BUN Creatinine 0.2 L Glucose 167 H POC Glucose 138 H Calcium Ferritin Total Bilirubin Alkaline Phosphatase Lactate Dehydrogenase Total Creatine Kinase CK-MB (CK-2) Rel Index Troponin T C-Reactive Protein Total Protein Albumin Prealbumin LDL Cholesterol Direct HDL Cholesterol Arterial Blood Glucose Arterial Blood Ionized Calcium Urine WBC (Auto) 02/28/20 02/28/20 02/28/20 11:05 11:33 12:54 WBC RBC Hgb Hct MCV MCH RDW Plt Count Lymph % (Auto) [place] % (Auto) Eos % (Auto) Lymph # (Auto) [place] # (Auto) Eos # (Auto) Seg Neutrophils % Seg Neuts % (Manual) Lymphocytes % (Manual) Monocytes % (Manual) Basophils % (Manual) Seg Neutrophils # Seg Neutrophils # Man Lymphocytes # (Manual) Monocytes # (Manual) Eosinophils # (Manual) Basophils # (Manual) PT INR D-Dimer ABG pH POC ABG pCO2 POC ABG pO2 ABG pO2 ABG HCO3 ABG O2 Saturation ABG Base Excess ABG Hemoglobin ABG Oxyhemoglobin ABG Potassium ABG Glucose Oxyhemoglobin Carboxyhemoglobin Sodium Potassium Chloride Carbon Dioxide BUN Creatinine Glucose POC Glucose 160 H Calcium Ferritin Total Bilirubin Alkaline Phosphatase Lactate Dehydrogenase Total Creatine Kinase CK-MB (CK-2) Rel Index Troponin T C-Reactive Protein 4.70 H Total Protein Albumin Prealbumin 0.090 L LDL Cholesterol Direct HDL Cholesterol Arterial Blood Glucose Arterial Blood Ionized Calcium Urine WBC (Auto) 02/28/20 02/29/20 02/29/20 17:34 00:44 04:05 WBC 19.6 H RBC Hgb Hct MCV MCH 27 L RDW 15.4 H Plt Count Lymph % (Auto) [place] % (Auto) Eos % (Auto) Lymph # (Auto) [place] # (Auto) Eos # (Auto) Seg Neutrophils % Seg Neuts % (Manual) 86.0 H Lymphocytes % (Manual) 7.0 L Monocytes % (Manual) Basophils % (Manual) Seg Neutrophils # Seg Neutrophils # Man 16.9 H Lymphocytes # (Manual) Monocytes # (Manual) 1.2 H Eosinophils # (Manual) Basophils # (Manual) PT INR D-Dimer ABG pH POC ABG pCO2 POC ABG pO2 ABG pO2 ABG HCO3 ABG O2 Saturation ABG Base Excess ABG Hemoglobin ABG Oxyhemoglobin ABG Potassium ABG Glucose Oxyhemoglobin Carboxyhemoglobin Sodium Potassium Chloride Carbon Dioxide BUN Creatinine Glucose POC Glucose 136 H 156 H Calcium Ferritin Total Bilirubin Alkaline Phosphatase Lactate Dehydrogenase Total Creatine Kinase CK-MB (CK-2) Rel Index Troponin T C-Reactive Protein Total Protein Albumin Prealbumin LDL Cholesterol Direct HDL Cholesterol Arterial Blood Glucose Arterial Blood Ionized Calcium Urine WBC (Auto) 02/29/20 02/29/20 02/29/20 04:05 05:14 05:33 WBC RBC Hgb Hct MCV MCH RDW Plt Count Lymph % (Auto) [place] % (Auto) Eos % (Auto) Lymph # (Auto) [place] # (Auto) Eos # (Auto) Seg Neutrophils % Seg Neuts % (Manual) Lymphocytes % (Manual) Monocytes % (Manual) Basophils % (Manual) Seg Neutrophils # Seg Neutrophils # Man Lymphocytes # (Manual) Monocytes # (Manual) Eosinophils # (Manual) Basophils # (Manual) PT INR D-Dimer ABG pH POC ABG pCO2 54.3 H POC ABG pO2 124.8 H ABG pO2 ABG HCO3 ABG O2 Saturation ABG Base Excess ABG Hemoglobin ABG Oxyhemoglobin ABG Potassium ABG Glucose 185 H Oxyhemoglobin Carboxyhemoglobin Sodium 148 H Potassium Chloride Carbon Dioxide 33 H BUN Creatinine < 0.2 L Glucose 173 H POC Glucose 152 H Calcium Ferritin Total Bilirubin Alkaline Phosphatase Lactate Dehydrogenase Total Creatine Kinase CK-MB (CK-2) Rel Index Troponin T C-Reactive Protein Total Protein Albumin Prealbumin LDL Cholesterol Direct HDL Cholesterol Arterial Blood Glucose 185 H Arterial Blood Ionized Calcium Urine WBC (Auto) 03/01/20 03/01/20 03/01/20 00:00 03:45 04:33 WBC 23.1 H RBC Hgb Hct MCV MCH 27 L RDW 15.3 H Plt Count Lymph % (Auto) [place] % (Auto) Eos % (Auto) Lymph # (Auto) [place] # (Auto) Eos # (Auto) Seg Neutrophils % Seg Neuts % (Manual) 92.0 H Lymphocytes % (Manual) 6.0 L Monocytes % (Manual) Basophils % (Manual) Seg Neutrophils # Seg Neutrophils # Man 21.3 H Lymphocytes # (Manual) Monocytes # (Manual) Eosinophils # (Manual) 0.5 H Basophils # (Manual) PT INR D-Dimer ABG pH 7.492 H POC ABG pCO2 POC ABG pO2 ABG pO2 157.1 H ABG HCO3 32.3 H ABG O2 Saturation ABG Base Excess 8.1 H ABG Hemoglobin 13.2 L ABG Oxyhemoglobin ABG Potassium ABG Glucose Oxyhemoglobin Carboxyhemoglobin Sodium Potassium Chloride Carbon Dioxide BUN Creatinine Glucose POC Glucose 109 H Calcium Ferritin Total Bilirubin Alkaline Phosphatase Lactate Dehydrogenase Total Creatine Kinase CK-MB (CK-2) Rel Index Troponin T C-Reactive Protein Total Protein Albumin Prealbumin LDL Cholesterol Direct HDL Cholesterol Arterial Blood Glucose Arterial Blood Ionized Calcium Urine WBC (Auto) 03/01/20 03/01/20 03/01/20 04:33 05:29 12:32 WBC RBC Hgb Hct MCV MCH RDW Plt Count Lymph % (Auto) [place] % (Auto) Eos % (Auto) Lymph # (Auto) [place] # (Auto) Eos # (Auto) Seg Neutrophils % Seg Neuts % (Manual) Lymphocytes % (Manual) Monocytes % (Manual) Basophils % (Manual) Seg Neutrophils # Seg Neutrophils # Man Lymphocytes # (Manual) Monocytes # (Manual) Eosinophils # (Manual) Basophils # (Manual) PT INR D-Dimer ABG pH POC ABG pCO2 POC ABG pO2 ABG pO2 ABG HCO3 ABG O2 Saturation ABG Base Excess ABG Hemoglobin ABG Oxyhemoglobin ABG Potassium ABG Glucose Oxyhemoglobin Carboxyhemoglobin Sodium 146 H Potassium Chloride Carbon Dioxide 32 H BUN Creatinine < 0.2 L Glucose 120 H POC Glucose 120 H 128 H Calcium Ferritin Total Bilirubin Alkaline Phosphatase Lactate Dehydrogenase Total Creatine Kinase CK-MB (CK-2) Rel Index Troponin T C-Reactive Protein Total Protein Albumin Prealbumin LDL Cholesterol Direct HDL Cholesterol Arterial Blood Glucose Arterial Blood Ionized Calcium Urine WBC (Auto) 03/01/20 03/01/20 03/02/20 17:38 23:46 06:13 WBC RBC Hgb Hct MCV MCH RDW Plt Count Lymph % (Auto) [place] % (Auto) Eos % (Auto) Lymph # (Auto) [place] # (Auto) Eos # (Auto) Seg Neutrophils % Seg Neuts % (Manual) Lymphocytes % (Manual) Monocytes % (Manual) Basophils % (Manual) Seg Neutrophils # Seg Neutrophils # Man Lymphocytes # (Manual) Monocytes # (Manual) Eosinophils # (Manual) Basophils # (Manual) PT INR D-Dimer ABG pH POC ABG pCO2 POC ABG pO2 ABG pO2 ABG HCO3 ABG O2 Saturation ABG Base Excess ABG Hemoglobin ABG Oxyhemoglobin ABG Potassium ABG Glucose Oxyhemoglobin Carboxyhemoglobin Sodium Potassium Chloride Carbon Dioxide BUN Creatinine Glucose POC Glucose 114 H 121 H 120 H Calcium Ferritin Total Bilirubin Alkaline Phosphatase Lactate Dehydrogenase Total Creatine Kinase CK-MB (CK-2) Rel Index Troponin T C-Reactive Protein Total Protein Albumin Prealbumin LDL Cholesterol Direct HDL Cholesterol Arterial Blood Glucose Arterial Blood Ionized Calcium Urine WBC (Auto) 03/02/20 03/02/20 03/03/20 09:47 09:47 10:21 WBC 23.6 H RBC Hgb Hct MCV MCH RDW 15.3 H Plt Count 494 H Lymph % (Auto) [place] % (Auto) Eos % (Auto) Lymph # (Auto) [place] # (Auto) Eos # (Auto) Seg Neutrophils % Seg Neuts % (Manual) 85.0 H Lymphocytes % (Manual) 6.0 L Monocytes % (Manual) Basophils % (Manual) Seg Neutrophils # Seg Neutrophils # Man 20.1 H Lymphocytes # (Manual) Monocytes # (Manual) 1.7 H Eosinophils # (Manual) Basophils # (Manual) PT INR D-Dimer ABG pH POC ABG pCO2 POC ABG pO2 ABG pO2 ABG HCO3 ABG O2 Saturation ABG Base Excess ABG Hemoglobin ABG Oxyhemoglobin ABG Potassium 3.3 L ABG Glucose 158 H Oxyhemoglobin Carboxyhemoglobin Sodium Potassium Chloride Carbon Dioxide BUN Creatinine < 0.2 L Glucose 177 H POC Glucose Calcium Ferritin Total Bilirubin Alkaline Phosphatase Lactate Dehydrogenase Total Creatine Kinase CK-MB (CK-2) Rel Index Troponin T C-Reactive Protein Total Protein Albumin Prealbumin LDL Cholesterol Direct HDL Cholesterol Arterial Blood Glucose 158 H Arterial Blood Ionized Calcium Urine WBC (Auto) 03/03/20 03/04/20 03/04/20 21:30 00:00 12:23 WBC RBC Hgb Hct MCV MCH RDW Plt Count Lymph % (Auto) [place] % (Auto) Eos % (Auto) Lymph # (Auto) [place] # (Auto) Eos # (Auto) Seg Neutrophils % Seg Neuts % (Manual) Lymphocytes % (Manual) Monocytes % (Manual) Basophils % (Manual) Seg Neutrophils # Seg Neutrophils # Man Lymphocytes # (Manual) Monocytes # (Manual) Eosinophils # (Manual) Basophils # (Manual) PT INR D-Dimer ABG pH 7.328 L POC ABG pCO2 POC ABG pO2 ABG pO2 68.4 L ABG HCO3 35.0 H ABG O2 Saturation 93.9 L ABG Base Excess 6.8 H ABG Hemoglobin 12.7 L ABG Oxyhemoglobin ABG Potassium ABG Glucose Oxyhemoglobin 91.9 L Carboxyhemoglobin Sodium Potassium Chloride Carbon Dioxide BUN Creatinine Glucose POC Glucose 187 H 163 H Calcium Ferritin Total Bilirubin Alkaline Phosphatase Lactate Dehydrogenase Total Creatine Kinase CK-MB (CK-2) Rel Index Troponin T C-Reactive Protein Total Protein Albumin Prealbumin LDL Cholesterol Direct HDL Cholesterol Arterial Blood Glucose Arterial Blood Ionized Calcium Urine WBC (Auto) 03/04/20 03/04/20 03/05/20 18:15 21:30 06:02 WBC RBC Hgb Hct MCV MCH RDW Plt Count Lymph % (Auto) [place] % (Auto) Eos % (Auto) Lymph # (Auto) [place] # (Auto) Eos # (Auto) Seg Neutrophils % Seg Neuts % (Manual) Lymphocytes % (Manual) Monocytes % (Manual) Basophils % (Manual) Seg Neutrophils # Seg Neutrophils # Man Lymphocytes # (Manual) Monocytes # (Manual) Eosinophils # (Manual) Basophils # (Manual) PT INR D-Dimer ABG pH 7.297 L POC ABG pCO2 POC ABG pO2 ABG pO2 ABG HCO3 41.0 H ABG O2 Saturation ABG Base Excess 11.0 H ABG Hemoglobin 13.1 L ABG Oxyhemoglobin ABG Potassium ABG Glucose Oxyhemoglobin 94.5 L Carboxyhemoglobin Sodium Potassium Chloride Carbon Dioxide BUN Creatinine Glucose POC Glucose 192 H 127 H Calcium Ferritin Total Bilirubin Alkaline Phosphatase Lactate Dehydrogenase Total Creatine Kinase CK-MB (CK-2) Rel Index Troponin T C-Reactive Protein Total Protein Albumin Prealbumin LDL Cholesterol Direct HDL Cholesterol Arterial Blood Glucose Arterial Blood Ionized Calcium Urine WBC (Auto) 03/05/20 03/05/20 03/06/20 12:09 16:42 00:24 WBC RBC Hgb Hct MCV MCH RDW Plt Count Lymph % (Auto) [place] % (Auto) Eos % (Auto) Lymph # (Auto) [place] # (Auto) Eos # (Auto) Seg Neutrophils % Seg Neuts % (Manual) Lymphocytes % (Manual) Monocytes % (Manual) Basophils % (Manual) Seg Neutrophils # Seg Neutrophils # Man Lymphocytes # (Manual) Monocytes # (Manual) Eosinophils # (Manual) Basophils # (Manual) PT INR D-Dimer ABG pH POC ABG pCO2 POC ABG pO2 ABG pO2 ABG HCO3 ABG O2 Saturation ABG Base Excess ABG Hemoglobin ABG Oxyhemoglobin ABG Potassium ABG Glucose Oxyhemoglobin Carboxyhemoglobin Sodium Potassium Chloride Carbon Dioxide BUN Creatinine Glucose POC Glucose 147 H 114 H 134 H Calcium Ferritin Total Bilirubin Alkaline Phosphatase Lactate Dehydrogenase Total Creatine Kinase CK-MB (CK-2) Rel Index Troponin T C-Reactive Protein Total Protein Albumin Prealbumin LDL Cholesterol Direct HDL Cholesterol Arterial Blood Glucose Arterial Blood Ionized Calcium Urine WBC (Auto) 03/06/20 03/06/20 03/06/20 04:34 05:53 06:08 WBC 25.4 H RBC Hgb 10.5 L Hct 32.7 L MCV MCH 27 L RDW 15.3 H Plt Count 634 H Lymph % (Auto) [place] % (Auto) Eos % (Auto) Lymph # (Auto) [place] # (Auto) Eos # (Auto) Seg Neutrophils % Seg Neuts % (Manual) 88.0 H Lymphocytes % (Manual) 2.0 L Monocytes % (Manual) 8.0 H Basophils % (Manual) Seg Neutrophils # Seg Neutrophils # Man 22.4 H Lymphocytes # (Manual) 0.5 L Monocytes # (Manual) 2.0 H Eosinophils # (Manual) Basophils # (Manual) PT INR D-Dimer ABG pH POC ABG pCO2 POC ABG pO2 ABG pO2 ABG HCO3 37.9 H ABG O2 Saturation ABG Base Excess 11.4 H ABG Hemoglobin 10.6 L ABG Oxyhemoglobin ABG Potassium ABG Glucose Oxyhemoglobin 94.7 L Carboxyhemoglobin Sodium Potassium Chloride Carbon Dioxide BUN Creatinine Glucose POC Glucose 135 H Calcium Ferritin Total Bilirubin Alkaline Phosphatase Lactate Dehydrogenase Total Creatine Kinase CK-MB (CK-2) Rel Index Troponin T C-Reactive Protein Total Protein Albumin Prealbumin LDL Cholesterol Direct HDL Cholesterol Arterial Blood Glucose Arterial Blood Ionized Calcium Urine WBC (Auto) 03/06/20 03/06/20 03/06/20 06:08 12:19 19:10 WBC RBC Hgb Hct MCV MCH RDW Plt Count Lymph % (Auto) [place] % (Auto) Eos % (Auto) Lymph # (Auto) [place] # (Auto) Eos # (Auto) Seg Neutrophils % Seg Neuts % (Manual) Lymphocytes % (Manual) Monocytes % (Manual) Basophils % (Manual) Seg Neutrophils # Seg Neutrophils # Man Lymphocytes # (Manual) Monocytes # (Manual) Eosinophils # (Manual) Basophils # (Manual) PT INR D-Dimer ABG pH POC ABG pCO2 POC ABG pO2 ABG pO2 ABG HCO3 ABG O2 Saturation ABG Base Excess ABG Hemoglobin ABG Oxyhemoglobin ABG Potassium ABG Glucose Oxyhemoglobin Carboxyhemoglobin Sodium 150 H D Potassium Chloride Carbon Dioxide 39 H D BUN 23 H Creatinine < 0.2 L Glucose 144 H POC Glucose 169 H 152 H Calcium Ferritin Total Bilirubin Alkaline Phosphatase Lactate Dehydrogenase Total Creatine Kinase CK-MB (CK-2) Rel Index Troponin T C-Reactive Protein Total Protein Albumin 3.3 L Prealbumin LDL Cholesterol Direct HDL Cholesterol Arterial Blood Glucose Arterial Blood Ionized Calcium Urine WBC (Auto) 03/06/20 03/07/20 03/07/20 23:58 04:25 04:25 WBC 22.1 H RBC Hgb 10.9 L Hct 32.9 L MCV MCH RDW 15.5 H Plt Count 739 H Lymph % (Auto) 7.8 L [place] % (Auto) Eos % (Auto) Lymph # (Auto) [place] # (Auto) 1.3 H Eos # (Auto) Seg Neutrophils % 85.5 H Seg Neuts % (Manual) Lymphocytes % (Manual) Monocytes % (Manual) Basophils % (Manual) Seg Neutrophils # 18.9 H Seg Neutrophils # Man Lymphocytes # (Manual) Monocytes # (Manual) Eosinophils # (Manual) Basophils # (Manual) PT INR D-Dimer ABG pH POC ABG pCO2 POC ABG pO2 ABG pO2 ABG HCO3 ABG O2 Saturation ABG Base Excess ABG Hemoglobin ABG Oxyhemoglobin ABG Potassium ABG Glucose Oxyhemoglobin Carboxyhemoglobin Sodium 146 H Potassium Chloride Carbon Dioxide 37 H BUN Creatinine < 0.2 L Glucose 118 H POC Glucose 111 H Calcium Ferritin Total Bilirubin Alkaline Phosphatase Lactate Dehydrogenase Total Creatine Kinase CK-MB (CK-2) Rel Index Troponin T C-Reactive Protein Total Protein Albumin 3.7 L Prealbumin LDL Cholesterol Direct HDL Cholesterol Arterial Blood Glucose Arterial Blood Ionized Calcium Urine WBC (Auto) 03/07/20 03/07/20 03/07/20 05:20 17:45 23:32 WBC RBC Hgb Hct MCV MCH RDW Plt Count Lymph % (Auto) [place] % (Auto) Eos % (Auto) Lymph # (Auto) [place] # (Auto) Eos # (Auto) Seg Neutrophils % Seg Neuts % (Manual) Lymphocytes % (Manual) Monocytes % (Manual) Basophils % (Manual) Seg Neutrophils # Seg Neutrophils # Man Lymphocytes # (Manual) Monocytes # (Manual) Eosinophils # (Manual) Basophils # (Manual) PT INR D-Dimer ABG pH POC ABG pCO2 POC ABG pO2 ABG pO2 ABG HCO3 ABG O2 Saturation ABG Base Excess ABG Hemoglobin ABG Oxyhemoglobin ABG Potassium ABG Glucose Oxyhemoglobin Carboxyhemoglobin Sodium Potassium Chloride Carbon Dioxide BUN Creatinine Glucose POC Glucose 113 H 124 H 210 H Calcium Ferritin Total Bilirubin Alkaline Phosphatase Lactate Dehydrogenase Total Creatine Kinase CK-MB (CK-2) Rel Index Troponin T C-Reactive Protein Total Protein Albumin Prealbumin LDL Cholesterol Direct HDL Cholesterol Arterial Blood Glucose Arterial Blood Ionized Calcium Urine WBC (Auto) 03/08/20 03/08/20 03/08/20 05:35 06:43 06:43 WBC 28.9 H RBC 3.53 L Hgb 9.7 L Hct 30.3 L MCV MCH RDW 15.6 H Plt Count 578 H Lymph % (Auto) [place] % (Auto) Eos % (Auto) Lymph # (Auto) [place] # (Auto) Eos # (Auto) Seg Neutrophils % Seg Neuts % (Manual) 93.0 H Lymphocytes % (Manual) 4.0 L Monocytes % (Manual) Basophils % (Manual) Seg Neutrophils # Seg Neutrophils # Man 26.9 H Lymphocytes # (Manual) Monocytes # (Manual) Eosinophils # (Manual) Basophils # (Manual) PT INR D-Dimer ABG pH POC ABG pCO2 POC ABG pO2 ABG pO2 ABG HCO3 ABG O2 Saturation ABG Base Excess ABG Hemoglobin ABG Oxyhemoglobin ABG Potassium ABG Glucose Oxyhemoglobin Carboxyhemoglobin Sodium 146 H Potassium Chloride Carbon Dioxide 35 H BUN 34 H Creatinine 0.3 L D Glucose 125 H POC Glucose 147 H Calcium Ferritin Total Bilirubin Alkaline Phosphatase Lactate Dehydrogenase Total Creatine Kinase CK-MB (CK-2) Rel Index Troponin T C-Reactive Protein Total Protein 5.9 L Albumin 3.2 L Prealbumin LDL Cholesterol Direct HDL Cholesterol Arterial Blood Glucose Arterial Blood Ionized Calcium Urine WBC (Auto) 03/08/20 03/08/20 03/08/20 08:57 11:14 12:34 WBC RBC Hgb Hct MCV MCH RDW Plt Count Lymph % (Auto) [place] % (Auto) Eos % (Auto) Lymph # (Auto) [place] # (Auto) Eos # (Auto) Seg Neutrophils % Seg Neuts % (Manual) Lymphocytes % (Manual) Monocytes % (Manual) Basophils % (Manual) Seg Neutrophils # Seg Neutrophils # Man Lymphocytes # (Manual) Monocytes # (Manual) Eosinophils # (Manual) Basophils # (Manual) PT INR D-Dimer ABG pH POC ABG pCO2 63.1 H POC ABG pO2 ABG pO2 ABG HCO3 ABG O2 Saturation ABG Base Excess ABG Hemoglobin 10.9 L ABG Oxyhemoglobin ABG Potassium ABG Glucose 176 H Oxyhemoglobin Carboxyhemoglobin Sodium Potassium Chloride Carbon Dioxide BUN Creatinine Glucose POC Glucose 171 H Calcium Ferritin Total Bilirubin Alkaline Phosphatase Lactate Dehydrogenase Total Creatine Kinase CK-MB (CK-2) Rel Index Troponin T C-Reactive Protein Total Protein Albumin Prealbumin LDL Cholesterol Direct HDL Cholesterol Arterial Blood Glucose 176 H Arterial Blood Ionized Calcium 4.5 L Urine WBC (Auto) 10.0 H 03/08/20 03/08/20 03/09/20 18:02 23:43 05:49 WBC RBC Hgb Hct MCV MCH RDW Plt Count Lymph % (Auto) [place] % (Auto) Eos % (Auto) Lymph # (Auto) [place] # (Auto) Eos # (Auto) Seg Neutrophils % Seg Neuts % (Manual) Lymphocytes % (Manual) Monocytes % (Manual) Basophils % (Manual) Seg Neutrophils # Seg Neutrophils # Man Lymphocytes # (Manual) Monocytes # (Manual) Eosinophils # (Manual) Basophils # (Manual) PT INR D-Dimer ABG pH POC ABG pCO2 POC ABG pO2 ABG pO2 ABG HCO3 ABG O2 Saturation ABG Base Excess ABG Hemoglobin ABG Oxyhemoglobin ABG Potassium ABG Glucose Oxyhemoglobin Carboxyhemoglobin Sodium Potassium Chloride Carbon Dioxide BUN Creatinine Glucose POC Glucose 157 H 134 H 163 H Calcium Ferritin Total Bilirubin Alkaline Phosphatase Lactate Dehydrogenase Total Creatine Kinase CK-MB (CK-2) Rel Index Troponin T C-Reactive Protein Total Protein Albumin Prealbumin LDL Cholesterol Direct HDL Cholesterol Arterial Blood Glucose Arterial Blood Ionized Calcium Urine WBC (Auto) 03/09/20 03/09/20 03/09/20 08:35 08:35 12:11 WBC 23.4 H RBC 3.36 L Hgb 9.3 L Hct 28.8 L MCV MCH RDW 15.9 H Plt Count 521 H Lymph % (Auto) [place] % (Auto) Eos % (Auto) Lymph # (Auto) [place] # (Auto) Eos # (Auto) Seg Neutrophils % Seg Neuts % (Manual) 87.0 H Lymphocytes % (Manual) 4.0 L Monocytes % (Manual) 9.0 H Basophils % (Manual) Seg Neutrophils # Seg Neutrophils # Man 20.4 H Lymphocytes # (Manual) 0.9 L Monocytes # (Manual) 2.1 H Eosinophils # (Manual) Basophils # (Manual) PT INR D-Dimer ABG pH POC ABG pCO2 POC ABG pO2 ABG pO2 ABG HCO3 ABG O2 Saturation ABG Base Excess ABG Hemoglobin ABG Oxyhemoglobin ABG Potassium ABG Glucose Oxyhemoglobin Carboxyhemoglobin Sodium 147 H Potassium Chloride Carbon Dioxide 37 H BUN 63 H Creatinine Glucose 154 H POC Glucose 128 H Calcium Ferritin Total Bilirubin Alkaline Phosphatase Lactate Dehydrogenase Total Creatine Kinase CK-MB (CK-2) Rel Index Troponin T C-Reactive Protein Total Protein Albumin Prealbumin LDL Cholesterol Direct HDL Cholesterol Arterial Blood Glucose Arterial Blood Ionized Calcium Urine WBC (Auto) 03/09/20 03/10/20 03/10/20 17:51 00:25 05:41 WBC RBC Hgb Hct MCV MCH RDW Plt Count Lymph % (Auto) [place] % (Auto) Eos % (Auto) Lymph # (Auto) [place] # (Auto) Eos # (Auto) Seg Neutrophils % Seg Neuts % (Manual) Lymphocytes % (Manual) Monocytes % (Manual) Basophils % (Manual) Seg Neutrophils # Seg Neutrophils # Man Lymphocytes # (Manual) Monocytes # (Manual) Eosinophils # (Manual) Basophils # (Manual) PT INR D-Dimer ABG pH POC ABG pCO2 POC ABG pO2 ABG pO2 ABG HCO3 ABG O2 Saturation ABG Base Excess ABG Hemoglobin ABG Oxyhemoglobin ABG Potassium ABG Glucose Oxyhemoglobin Carboxyhemoglobin Sodium Potassium Chloride Carbon Dioxide BUN Creatinine Glucose POC Glucose 127 H 128 H 153 H Calcium Ferritin Total Bilirubin Alkaline Phosphatase Lactate Dehydrogenase Total Creatine Kinase CK-MB (CK-2) Rel Index Troponin T C-Reactive Protein Total Protein Albumin Prealbumin LDL Cholesterol Direct HDL Cholesterol Arterial Blood Glucose Arterial Blood Ionized Calcium Urine WBC (Auto) 03/10/20 03/10/20 03/10/20 06:14 06:14 12:02 WBC 18.3 H RBC 3.45 L Hgb 9.5 L Hct 29.5 L MCV MCH RDW 16.1 H Plt Count 494 H Lymph % (Auto) [place] % (Auto) Eos % (Auto) Lymph # (Auto) [place] # (Auto) Eos # (Auto) Seg Neutrophils % Seg Neuts % (Manual) 95.0 H Lymphocytes % (Manual) 1.0 L Monocytes % (Manual) Basophils % (Manual) Seg Neutrophils # Seg Neutrophils # Man 17.4 H Lymphocytes # (Manual) 0.2 L Monocytes # (Manual) Eosinophils # (Manual) Basophils # (Manual) PT INR D-Dimer ABG pH POC ABG pCO2 POC ABG pO2 ABG pO2 ABG HCO3 ABG O2 Saturation ABG Base Excess ABG Hemoglobin ABG Oxyhemoglobin ABG Potassium ABG Glucose Oxyhemoglobin Carboxyhemoglobin Sodium 149 H Potassium Chloride Carbon Dioxide 35 H BUN 34 H Creatinine 0.2 L D Glucose 177 H POC Glucose 151 H Calcium Ferritin Total Bilirubin Alkaline Phosphatase Lactate Dehydrogenase Total Creatine Kinase CK-MB (CK-2) Rel Index Troponin T C-Reactive Protein Total Protein Albumin Prealbumin LDL Cholesterol Direct HDL Cholesterol Arterial Blood Glucose Arterial Blood Ionized Calcium Urine WBC (Auto) 03/10/20 03/10/20 03/11/20 17:41 23:53 05:02 WBC RBC Hgb Hct MCV MCH RDW Plt Count Lymph % (Auto) [place] % (Auto) Eos % (Auto) Lymph # (Auto) [place] # (Auto) Eos # (Auto) Seg Neutrophils % Seg Neuts % (Manual) Lymphocytes % (Manual) Monocytes % (Manual) Basophils % (Manual) Seg Neutrophils # Seg Neutrophils # Man Lymphocytes # (Manual) Monocytes # (Manual) Eosinophils # (Manual) Basophils # (Manual) PT INR D-Dimer ABG pH POC ABG pCO2 POC ABG pO2 ABG pO2 ABG HCO3 ABG O2 Saturation ABG Base Excess ABG Hemoglobin ABG Oxyhemoglobin ABG Potassium ABG Glucose Oxyhemoglobin Carboxyhemoglobin Sodium Potassium Chloride Carbon Dioxide BUN Creatinine Glucose POC Glucose 168 H 142 H 146 H Calcium Ferritin Total Bilirubin Alkaline Phosphatase Lactate Dehydrogenase Total Creatine Kinase CK-MB (CK-2) Rel Index Troponin T C-Reactive Protein Total Protein Albumin Prealbumin LDL Cholesterol Direct HDL Cholesterol Arterial Blood Glucose Arterial Blood Ionized Calcium Urine WBC (Auto) 03/11/20 03/11/20 03/11/20 11:30 14:01 14:01 WBC 19.7 H RBC 3.04 L Hgb 8.7 L Hct 25.8 L MCV MCH RDW 15.6 H Plt Count Lymph % (Auto) [place] % (Auto) Eos % (Auto) Lymph # (Auto) [place] # (Auto) Eos # (Auto) Seg Neutrophils % Seg Neuts % (Manual) Lymphocytes % (Manual) Monocytes % (Manual) Basophils % (Manual) Seg Neutrophils # Seg Neutrophils # Man Lymphocytes # (Manual) Monocytes # (Manual) Eosinophils # (Manual) Basophils # (Manual) PT INR D-Dimer ABG pH POC ABG pCO2 POC ABG pO2 ABG pO2 ABG HCO3 ABG O2 Saturation ABG Base Excess ABG Hemoglobin ABG Oxyhemoglobin ABG Potassium ABG Glucose Oxyhemoglobin Carboxyhemoglobin Sodium 151 H Potassium Chloride Carbon Dioxide 37 H BUN Creatinine < 0.2 L Glucose 171 H POC Glucose 248 H Calcium Ferritin Total Bilirubin Alkaline Phosphatase Lactate Dehydrogenase Total Creatine Kinase CK-MB (CK-2) Rel Index Troponin T C-Reactive Protein Total Protein Albumin Prealbumin LDL Cholesterol Direct HDL Cholesterol Arterial Blood Glucose Arterial Blood Ionized Calcium Urine WBC (Auto) 03/11/20 03/11/20 03/12/20 17:09 23:52 04:39 WBC 19.9 H RBC 3.16 L Hgb 8.9 L Hct 27.5 L MCV MCH RDW 15.7 H Plt Count Lymph % (Auto) 6.8 L [place] % (Auto) Eos % (Auto) Lymph # (Auto) [place] # (Auto) 1.2 H Eos # (Auto) Seg Neutrophils % 86.0 H Seg Neuts % (Manual) Lymphocytes % (Manual) Monocytes % (Manual) Basophils % (Manual) Seg Neutrophils # 17.1 H Seg Neutrophils # Man Lymphocytes # (Manual) Monocytes # (Manual) Eosinophils # (Manual) Basophils # (Manual) PT INR D-Dimer ABG pH POC ABG pCO2 POC ABG pO2 ABG pO2 ABG HCO3 ABG O2 Saturation ABG Base Excess ABG Hemoglobin ABG Oxyhemoglobin ABG Potassium ABG Glucose Oxyhemoglobin Carboxyhemoglobin Sodium Potassium Chloride Carbon Dioxide BUN Creatinine Glucose POC Glucose 124 H 131 H Calcium Ferritin Total Bilirubin Alkaline Phosphatase Lactate Dehydrogenase Total Creatine Kinase CK-MB (CK-2) Rel Index Troponin T C-Reactive Protein Total Protein Albumin Prealbumin LDL Cholesterol Direct HDL Cholesterol Arterial Blood Glucose Arterial Blood Ionized Calcium Urine WBC (Auto) 03/12/20 03/12/20 03/12/20 04:39 05:28 11:34 WBC RBC Hgb Hct MCV MCH RDW Plt Count Lymph % (Auto) [place] % (Auto) Eos % (Auto) Lymph # (Auto) [place] # (Auto) Eos # (Auto) Seg Neutrophils % Seg Neuts % (Manual) Lymphocytes % (Manual) Monocytes % (Manual) Basophils % (Manual) Seg Neutrophils # Seg Neutrophils # Man Lymphocytes # (Manual) Monocytes # (Manual) Eosinophils # (Manual) Basophils # (Manual) PT INR D-Dimer ABG pH POC ABG pCO2 POC ABG pO2 ABG pO2 ABG HCO3 ABG O2 Saturation ABG Base Excess ABG Hemoglobin ABG Oxyhemoglobin ABG Potassium ABG Glucose Oxyhemoglobin Carboxyhemoglobin Sodium 147 H Potassium Chloride Carbon Dioxide 40 H BUN Creatinine < 0.2 L Glucose 175 H POC Glucose 167 H 144 H Calcium Ferritin Total Bilirubin Alkaline Phosphatase Lactate Dehydrogenase Total Creatine Kinase CK-MB (CK-2) Rel Index Troponin T C-Reactive Protein Total Protein Albumin Prealbumin LDL Cholesterol Direct HDL Cholesterol Arterial Blood Glucose Arterial Blood Ionized Calcium Urine WBC (Auto) 03/12/20 03/12/20 03/13/20 17:32 23:57 05:57 WBC RBC Hgb Hct MCV MCH RDW Plt Count Lymph % (Auto) [place] % (Auto) Eos % (Auto) Lymph # (Auto) [place] # (Auto) Eos # (Auto) Seg Neutrophils % Seg Neuts % (Manual) Lymphocytes % (Manual) Monocytes % (Manual) Basophils % (Manual) Seg Neutrophils # Seg Neutrophils # Man Lymphocytes # (Manual) Monocytes # (Manual) Eosinophils # (Manual) Basophils # (Manual) PT INR D-Dimer ABG pH POC ABG pCO2 POC ABG pO2 ABG pO2 ABG HCO3 ABG O2 Saturation ABG Base Excess ABG Hemoglobin ABG Oxyhemoglobin ABG Potassium ABG Glucose Oxyhemoglobin Carboxyhemoglobin Sodium Potassium Chloride Carbon Dioxide BUN Creatinine Glucose POC Glucose 141 H 137 H 161 H Calcium Ferritin Total Bilirubin Alkaline Phosphatase Lactate Dehydrogenase Total Creatine Kinase CK-MB (CK-2) Rel Index Troponin T C-Reactive Protein Total Protein Albumin Prealbumin LDL Cholesterol Direct HDL Cholesterol Arterial Blood Glucose Arterial Blood Ionized Calcium Urine WBC (Auto) 03/13/20 03/13/20 03/13/20 12:28 14:14 18:39 WBC RBC Hgb Hct MCV MCH RDW Plt Count Lymph % (Auto) [place] % (Auto) Eos % (Auto) Lymph # (Auto) [place] # (Auto) Eos # (Auto) Seg Neutrophils % Seg Neuts % (Manual) Lymphocytes % (Manual) Monocytes % (Manual) Basophils % (Manual) Seg Neutrophils # Seg Neutrophils # Man Lymphocytes # (Manual) Monocytes # (Manual) Eosinophils # (Manual) Basophils # (Manual) PT INR D-Dimer ABG pH POC ABG pCO2 POC ABG pO2 ABG pO2 ABG HCO3 ABG O2 Saturation ABG Base Excess ABG Hemoglobin ABG Oxyhemoglobin ABG Potassium ABG Glucose Oxyhemoglobin Carboxyhemoglobin Sodium Potassium Chloride Carbon Dioxide 39 H BUN Creatinine < 0.2 L Glucose 129 H POC Glucose 130 H 125 H Calcium Ferritin Total Bilirubin Alkaline Phosphatase Lactate Dehydrogenase Total Creatine Kinase CK-MB (CK-2) Rel Index Troponin T C-Reactive Protein Total Protein Albumin Prealbumin LDL Cholesterol Direct HDL Cholesterol Arterial Blood Glucose Arterial Blood Ionized Calcium Urine WBC (Auto) 03/13/20 03/14/20 03/14/20 23:33 05:24 08:07 WBC 16.8 H RBC 2.81 L Hgb 7.9 L Hct 23.9 L MCV MCH RDW 15.9 H Plt Count Lymph % (Auto) [place] % (Auto) Eos % (Auto) Lymph # (Auto) [place] # (Auto) Eos # (Auto) Seg Neutrophils % Seg Neuts % (Manual) 84.0 H Lymphocytes % (Manual) 10.0 L Monocytes % (Manual) Basophils % (Manual) Seg Neutrophils # Seg Neutrophils # Man 14.1 H Lymphocytes # (Manual) Monocytes # (Manual) Eosinophils # (Manual) Basophils # (Manual) PT INR D-Dimer ABG pH POC ABG pCO2 POC ABG pO2 ABG pO2 ABG HCO3 ABG O2 Saturation ABG Base Excess ABG Hemoglobin ABG Oxyhemoglobin ABG Potassium ABG Glucose Oxyhemoglobin Carboxyhemoglobin Sodium Potassium Chloride Carbon Dioxide BUN Creatinine Glucose POC Glucose 146 H 125 H Calcium Ferritin Total Bilirubin Alkaline Phosphatase Lactate Dehydrogenase Total Creatine Kinase CK-MB (CK-2) Rel Index Troponin T C-Reactive Protein Total Protein Albumin Prealbumin LDL Cholesterol Direct HDL Cholesterol Arterial Blood Glucose Arterial Blood Ionized Calcium Urine WBC (Auto) 03/14/20 03/14/20 03/14/20 08:07 12:21 18:26 WBC RBC Hgb Hct MCV MCH RDW Plt Count Lymph % (Auto) [place] % (Auto) Eos % (Auto) Lymph # (Auto) [place] # (Auto) Eos # (Auto) Seg Neutrophils % Seg Neuts % (Manual) Lymphocytes % (Manual) Monocytes % (Manual) Basophils % (Manual) Seg Neutrophils # Seg Neutrophils # Man Lymphocytes # (Manual) Monocytes # (Manual) Eosinophils # (Manual) Basophils # (Manual) PT INR D-Dimer ABG pH POC ABG pCO2 POC ABG pO2 ABG pO2 ABG HCO3 ABG O2 Saturation ABG Base Excess ABG Hemoglobin ABG Oxyhemoglobin ABG Potassium ABG Glucose Oxyhemoglobin Carboxyhemoglobin Sodium Potassium Chloride 97.0 L Carbon Dioxide 37 H BUN Creatinine < 0.2 L Glucose 129 H POC Glucose 109 H 142 H Calcium 8.3 L Ferritin Total Bilirubin Alkaline Phosphatase Lactate Dehydrogenase Total Creatine Kinase CK-MB (CK-2) Rel Index Troponin T C-Reactive Protein Total Protein Albumin Prealbumin LDL Cholesterol Direct HDL Cholesterol Arterial Blood Glucose Arterial Blood Ionized Calcium Urine WBC (Auto) 03/14/20 03/15/20 03/15/20 23:57 05:46 08:06 WBC 19.7 H RBC 3.29 L Hgb 9.1 L Hct 28.0 L MCV MCH RDW 15.9 H Plt Count Lymph % (Auto) [place] % (Auto) Eos % (Auto) Lymph # (Auto) [place] # (Auto) Eos # (Auto) Seg Neutrophils % Seg Neuts % (Manual) Lymphocytes % (Manual) Monocytes % (Manual) Basophils % (Manual) Seg Neutrophils # Seg Neutrophils # Man Lymphocytes # (Manual) Monocytes # (Manual) Eosinophils # (Manual) Basophils # (Manual) PT INR D-Dimer ABG pH POC ABG pCO2 POC ABG pO2 ABG pO2 ABG HCO3 ABG O2 Saturation ABG Base Excess ABG Hemoglobin ABG Oxyhemoglobin ABG Potassium ABG Glucose Oxyhemoglobin Carboxyhemoglobin Sodium Potassium Chloride Carbon Dioxide BUN Creatinine Glucose POC Glucose 157 H 118 H Calcium Ferritin Total Bilirubin Alkaline Phosphatase Lactate Dehydrogenase Total Creatine Kinase CK-MB (CK-2) Rel Index Troponin T C-Reactive Protein Total Protein Albumin Prealbumin LDL Cholesterol Direct HDL Cholesterol Arterial Blood Glucose Arterial Blood Ionized Calcium Urine WBC (Auto) 03/15/20 03/15/20 03/15/20 08:06 12:44 18:09 WBC RBC Hgb Hct MCV MCH RDW Plt Count Lymph % (Auto) [place] % (Auto) Eos % (Auto) Lymph # (Auto) [place] # (Auto) Eos # (Auto) Seg Neutrophils % Seg Neuts % (Manual) Lymphocytes % (Manual) Monocytes % (Manual) Basophils % (Manual) Seg Neutrophils # Seg Neutrophils # Man Lymphocytes # (Manual) Monocytes # (Manual) Eosinophils # (Manual) Basophils # (Manual) PT INR D-Dimer ABG pH POC ABG pCO2 POC ABG pO2 ABG pO2 ABG HCO3 ABG O2 Saturation ABG Base Excess ABG Hemoglobin ABG Oxyhemoglobin ABG Potassium ABG Glucose Oxyhemoglobin Carboxyhemoglobin Sodium 136 L Potassium Chloride 93.6 L Carbon Dioxide 37 H BUN Creatinine < 0.2 L Glucose 132 H POC Glucose 151 H 164 H Calcium Ferritin Total Bilirubin Alkaline Phosphatase Lactate Dehydrogenase Total Creatine Kinase CK-MB (CK-2) Rel Index Troponin T C-Reactive Protein Total Protein Albumin Prealbumin LDL Cholesterol Direct HDL Cholesterol Arterial Blood Glucose Arterial Blood Ionized Calcium Urine WBC (Auto) 03/15/20 03/16/20 03/16/20 23:26 05:39 11:58 WBC RBC Hgb Hct MCV MCH RDW Plt Count Lymph % (Auto) [place] % (Auto) Eos % (Auto) Lymph # (Auto) [place] # (Auto) Eos # (Auto) Seg Neutrophils % Seg Neuts % (Manual) Lymphocytes % (Manual) Monocytes % (Manual) Basophils % (Manual) Seg Neutrophils # Seg Neutrophils # Man Lymphocytes # (Manual) Monocytes # (Manual) Eosinophils # (Manual) Basophils # (Manual) PT INR D-Dimer ABG pH POC ABG pCO2 POC ABG pO2 ABG pO2 ABG HCO3 ABG O2 Saturation ABG Base Excess ABG Hemoglobin ABG Oxyhemoglobin ABG Potassium ABG Glucose Oxyhemoglobin Carboxyhemoglobin Sodium Potassium Chloride Carbon Dioxide BUN Creatinine Glucose POC Glucose 136 H 116 H 109 H Calcium Ferritin Total Bilirubin Alkaline Phosphatase Lactate Dehydrogenase Total Creatine Kinase CK-MB (CK-2) Rel Index Troponin T C-Reactive Protein Total Protein Albumin Prealbumin LDL Cholesterol Direct HDL Cholesterol Arterial Blood Glucose Arterial Blood Ionized Calcium Urine WBC (Auto) 03/16/20 03/17/20 03/17/20 23:56 04:40 04:40 WBC 18.0 H RBC 3.33 L Hgb 9.5 L Hct 28.8 L MCV MCH RDW 16.4 H Plt Count 499 H Lymph % (Auto) [place] % (Auto) Eos % (Auto) Lymph # (Auto) [place] # (Auto) Eos # (Auto) Seg Neutrophils % Seg Neuts % (Manual) 82.0 H Lymphocytes % (Manual) 8.0 L Monocytes % (Manual) Basophils % (Manual) Seg Neutrophils # Seg Neutrophils # Man 14.8 H Lymphocytes # (Manual) Monocytes # (Manual) 1.3 H Eosinophils # (Manual) Basophils # (Manual) 0.2 H PT INR D-Dimer ABG pH POC ABG pCO2 POC ABG pO2 ABG pO2 ABG HCO3 ABG O2 Saturation ABG Base Excess ABG Hemoglobin ABG Oxyhemoglobin ABG Potassium ABG Glucose Oxyhemoglobin Carboxyhemoglobin Sodium Potassium Chloride 97.7 L Carbon Dioxide 32 H BUN Creatinine < 0.2 L Glucose 114 H POC Glucose 131 H Calcium Ferritin Total Bilirubin Alkaline Phosphatase Lactate Dehydrogenase Total Creatine Kinase CK-MB (CK-2) Rel Index Troponin T C-Reactive Protein Total Protein Albumin Prealbumin LDL Cholesterol Direct HDL Cholesterol Arterial Blood Glucose Arterial Blood Ionized Calcium Urine WBC (Auto) 03/18/20 03/18/20 03/18/20 00:21 05:21 11:55 WBC RBC Hgb Hct MCV MCH RDW Plt Count Lymph % (Auto) [place] % (Auto) Eos % (Auto) Lymph # (Auto) [place] # (Auto) Eos # (Auto) Seg Neutrophils % Seg Neuts % (Manual) Lymphocytes % (Manual) Monocytes % (Manual) Basophils % (Manual) Seg Neutrophils # Seg Neutrophils # Man Lymphocytes # (Manual) Monocytes # (Manual) Eosinophils # (Manual) Basophils # (Manual) PT INR D-Dimer ABG pH POC ABG pCO2 POC ABG pO2 ABG pO2 ABG HCO3 ABG O2 Saturation ABG Base Excess ABG Hemoglobin ABG Oxyhemoglobin ABG Potassium ABG Glucose Oxyhemoglobin Carboxyhemoglobin Sodium Potassium Chloride Carbon Dioxide BUN Creatinine Glucose POC Glucose 124 H 138 H 119 H Calcium Ferritin Total Bilirubin Alkaline Phosphatase Lactate Dehydrogenase Total Creatine Kinase CK-MB (CK-2) Rel Index Troponin T C-Reactive Protein Total Protein Albumin Prealbumin LDL Cholesterol Direct HDL Cholesterol Arterial Blood Glucose Arterial Blood Ionized Calcium Urine WBC (Auto) 03/18/20 03/18/20 03/19/20 17:03 23:58 05:24 WBC RBC Hgb Hct MCV MCH RDW Plt Count Lymph % (Auto) [place] % (Auto) Eos % (Auto) Lymph # (Auto) [place] # (Auto) Eos # (Auto) Seg Neutrophils % Seg Neuts % (Manual) Lymphocytes % (Manual) Monocytes % (Manual) Basophils % (Manual) Seg Neutrophils # Seg Neutrophils # Man Lymphocytes # (Manual) Monocytes # (Manual) Eosinophils # (Manual) Basophils # (Manual) PT INR D-Dimer ABG pH POC ABG pCO2 POC ABG pO2 ABG pO2 ABG HCO3 ABG O2 Saturation ABG Base Excess ABG Hemoglobin ABG Oxyhemoglobin ABG Potassium ABG Glucose Oxyhemoglobin Carboxyhemoglobin Sodium Potassium Chloride Carbon Dioxide BUN Creatinine Glucose POC Glucose 128 H 128 H 115 H Calcium Ferritin Total Bilirubin Alkaline Phosphatase Lactate Dehydrogenase Total Creatine Kinase CK-MB (CK-2) Rel Index Troponin T C-Reactive Protein Total Protein Albumin Prealbumin LDL Cholesterol Direct HDL Cholesterol Arterial Blood Glucose Arterial Blood Ionized Calcium Urine WBC (Auto) 03/19/20 03/19/20 03/19/20 08:05 08:05 11:56 WBC 16.8 H RBC 3.36 L Hgb 9.4 L Hct 28.8 L MCV MCH RDW 17.4 H Plt Count 567 H Lymph % (Auto) 7.8 L [place] % (Auto) Eos % (Auto) Lymph # (Auto) [place] # (Auto) 1.2 H Eos # (Auto) Seg Neutrophils % 83.5 H Seg Neuts % (Manual) Lymphocytes % (Manual) Monocytes % (Manual) Basophils % (Manual) Seg Neutrophils # 14.1 H Seg Neutrophils # Man Lymphocytes # (Manual) Monocytes # (Manual) Eosinophils # (Manual) Basophils # (Manual) PT INR D-Dimer ABG pH POC ABG pCO2 POC ABG pO2 ABG pO2 ABG HCO3 ABG O2 Saturation ABG Base Excess ABG Hemoglobin ABG Oxyhemoglobin ABG Potassium ABG Glucose Oxyhemoglobin Carboxyhemoglobin Sodium Potassium Chloride Carbon Dioxide 36 H BUN Creatinine < 0.2 L Glucose 135 H POC Glucose 128 H Calcium Ferritin Total Bilirubin Alkaline Phosphatase Lactate Dehydrogenase Total Creatine Kinase CK-MB (CK-2) Rel Index Troponin T C-Reactive Protein Total Protein Albumin Prealbumin LDL Cholesterol Direct HDL Cholesterol Arterial Blood Glucose Arterial Blood Ionized Calcium Urine WBC (Auto) 03/19/20 03/20/20 03/20/20 23:59 05:12 16:52 WBC RBC Hgb Hct MCV MCH RDW Plt Count Lymph % (Auto) [place] % (Auto) Eos % (Auto) Lymph # (Auto) [place] # (Auto) Eos # (Auto) Seg Neutrophils % Seg Neuts % (Manual) Lymphocytes % (Manual) Monocytes % (Manual) Basophils % (Manual) Seg Neutrophils # Seg Neutrophils # Man Lymphocytes # (Manual) Monocytes # (Manual) Eosinophils # (Manual) Basophils # (Manual) PT INR D-Dimer ABG pH POC ABG pCO2 POC ABG pO2 ABG pO2 ABG HCO3 ABG O2 Saturation ABG Base Excess ABG Hemoglobin ABG Oxyhemoglobin ABG Potassium ABG Glucose Oxyhemoglobin Carboxyhemoglobin Sodium Potassium Chloride Carbon Dioxide BUN Creatinine Glucose POC Glucose 120 H 131 H 124 H Calcium Ferritin Total Bilirubin Alkaline Phosphatase Lactate Dehydrogenase Total Creatine Kinase CK-MB (CK-2) Rel Index Troponin T C-Reactive Protein Total Protein Albumin Prealbumin LDL Cholesterol Direct HDL Cholesterol Arterial Blood Glucose Arterial Blood Ionized Calcium Urine WBC (Auto) 03/20/20 03/21/20 03/21/20 23:35 04:50 07:35 WBC 15.2 H RBC 3.39 L Hgb 9.4 L Hct 29.4 L MCV MCH RDW 17.6 H Plt Count 518 H Lymph % (Auto) [place] % (Auto) Eos % (Auto) Lymph # (Auto) [place] # (Auto) Eos # (Auto) Seg Neutrophils % Seg Neuts % (Manual) 83.0 H Lymphocytes % (Manual) 10.0 L Monocytes % (Manual) Basophils % (Manual) 2.0 H Seg Neutrophils # Seg Neutrophils # Man 12.6 H Lymphocytes # (Manual) Monocytes # (Manual) Eosinophils # (Manual) Basophils # (Manual) 0.3 H PT INR D-Dimer ABG pH POC ABG pCO2 POC ABG pO2 ABG pO2 ABG HCO3 ABG O2 Saturation ABG Base Excess ABG Hemoglobin ABG Oxyhemoglobin ABG Potassium ABG Glucose Oxyhemoglobin Carboxyhemoglobin Sodium Potassium Chloride Carbon Dioxide BUN Creatinine Glucose POC Glucose 125 H 127 H Calcium Ferritin Total Bilirubin Alkaline Phosphatase Lactate Dehydrogenase Total Creatine Kinase CK-MB (CK-2) Rel Index Troponin T C-Reactive Protein Total Protein Albumin Prealbumin LDL Cholesterol Direct HDL Cholesterol Arterial Blood Glucose Arterial Blood Ionized Calcium Urine WBC (Auto) 03/21/20 03/21/20 03/21/20 07:35 11:45 17:22 WBC RBC Hgb Hct MCV MCH RDW Plt Count Lymph % (Auto) [place] % (Auto) Eos % (Auto) Lymph # (Auto) [place] # (Auto) Eos # (Auto) Seg Neutrophils % Seg Neuts % (Manual) Lymphocytes % (Manual) Monocytes % (Manual) Basophils % (Manual) Seg Neutrophils # Seg Neutrophils # Man Lymphocytes # (Manual) Monocytes # (Manual) Eosinophils # (Manual) Basophils # (Manual) PT INR D-Dimer ABG pH POC ABG pCO2 POC ABG pO2 ABG pO2 ABG HCO3 ABG O2 Saturation ABG Base Excess ABG Hemoglobin ABG Oxyhemoglobin ABG Potassium ABG Glucose Oxyhemoglobin Carboxyhemoglobin Sodium 136 L Potassium Chloride 97.7 L Carbon Dioxide 32 H BUN Creatinine < 0.2 L Glucose 103 H POC Glucose 126 H 120 H Calcium Ferritin Total Bilirubin Alkaline Phosphatase Lactate Dehydrogenase Total Creatine Kinase CK-MB (CK-2) Rel Index Troponin T C-Reactive Protein Total Protein Albumin Prealbumin LDL Cholesterol Direct HDL Cholesterol Arterial Blood Glucose Arterial Blood Ionized Calcium Urine WBC (Auto) 03/22/20 03/22/20 03/22/20 05:09 06:34 06:34 WBC 17.5 H RBC 3.52 L Hgb 10.0 L Hct 30.7 L MCV MCH RDW 17.5 H Plt Count 499 H Lymph % (Auto) [place] % (Auto) Eos % (Auto) Lymph # (Auto) [place] # (Auto) Eos # (Auto) Seg Neutrophils % Seg Neuts % (Manual) 80.0 H Lymphocytes % (Manual) 10.0 L Monocytes % (Manual) Basophils % (Manual) Seg Neutrophils # Seg Neutrophils # Man 14.0 H Lymphocytes # (Manual) Monocytes # (Manual) Eosinophils # (Manual) Basophils # (Manual) PT INR D-Dimer ABG pH POC ABG pCO2 POC ABG pO2 ABG pO2 ABG HCO3 ABG O2 Saturation ABG Base Excess ABG Hemoglobin ABG Oxyhemoglobin ABG Potassium ABG Glucose Oxyhemoglobin Carboxyhemoglobin Sodium Potassium Chloride 96.6 L Carbon Dioxide 38 H BUN Creatinine < 0.2 L Glucose 139 H POC Glucose 125 H Calcium Ferritin Total Bilirubin Alkaline Phosphatase Lactate Dehydrogenase Total Creatine Kinase CK-MB (CK-2) Rel Index Troponin T C-Reactive Protein Total Protein Albumin Prealbumin LDL Cholesterol Direct HDL Cholesterol Arterial Blood Glucose Arterial Blood Ionized Calcium Urine WBC (Auto) 03/22/20 03/22/20 03/22/20 11:45 18:00 23:32 WBC RBC Hgb Hct MCV MCH RDW Plt Count Lymph % (Auto) [place] % (Auto) Eos % (Auto) Lymph # (Auto) [place] # (Auto) Eos # (Auto) Seg Neutrophils % Seg Neuts % (Manual) Lymphocytes % (Manual) Monocytes % (Manual) Basophils % (Manual) Seg Neutrophils # Seg Neutrophils # Man Lymphocytes # (Manual) Monocytes # (Manual) Eosinophils # (Manual) Basophils # (Manual) PT INR D-Dimer ABG pH POC ABG pCO2 POC ABG pO2 ABG pO2 ABG HCO3 ABG O2 Saturation ABG Base Excess ABG Hemoglobin ABG Oxyhemoglobin ABG Potassium ABG Glucose Oxyhemoglobin Carboxyhemoglobin Sodium Potassium Chloride Carbon Dioxide BUN Creatinine Glucose POC Glucose 135 H 133 H Calcium Ferritin Total Bilirubin Alkaline Phosphatase Lactate Dehydrogenase Total Creatine Kinase CK-MB (CK-2) Rel Index Troponin T 0.113 H* C-Reactive Protein Total Protein Albumin Prealbumin LDL Cholesterol Direct HDL Cholesterol Arterial Blood Glucose Arterial Blood Ionized Calcium Urine WBC (Auto) 03/23/20 03/23/20 03/23/20 01:47 06:21 07:57 WBC RBC Hgb Hct MCV MCH RDW Plt Count Lymph % (Auto) [place] % (Auto) Eos % (Auto) Lymph # (Auto) [place] # (Auto) Eos # (Auto) Seg Neutrophils % Seg Neuts % (Manual) Lymphocytes % (Manual) Monocytes % (Manual) Basophils % (Manual) Seg Neutrophils # Seg Neutrophils # Man Lymphocytes # (Manual) Monocytes # (Manual) Eosinophils # (Manual) Basophils # (Manual) PT INR D-Dimer ABG pH POC ABG pCO2 POC ABG pO2 ABG pO2 ABG HCO3 ABG O2 Saturation ABG Base Excess ABG Hemoglobin ABG Oxyhemoglobin ABG Potassium ABG Glucose Oxyhemoglobin Carboxyhemoglobin Sodium Potassium Chloride Carbon Dioxide BUN Creatinine Glucose POC Glucose 130 H Calcium Ferritin Total Bilirubin Alkaline Phosphatase Lactate Dehydrogenase Total Creatine Kinase CK-MB (CK-2) Rel Index Troponin T 0.143 H* D 0.105 H* D C-Reactive Protein Total Protein Albumin Prealbumin LDL Cholesterol Direct HDL Cholesterol Arterial Blood Glucose Arterial Blood Ionized Calcium Urine WBC (Auto) 03/23/20 03/24/20 03/24/20 12:02 05:33 07:15 WBC 18.0 H RBC Hgb 11.0 L Hct 34.0 L MCV MCH RDW 17.4 H Plt Count 520 H Lymph % (Auto) [place] % (Auto) Eos % (Auto) Lymph # (Auto) [place] # (Auto) Eos # (Auto) Seg Neutrophils % Seg Neuts % (Manual) 88.0 H Lymphocytes % (Manual) 7.0 L Monocytes % (Manual) Basophils % (Manual) Seg Neutrophils # Seg Neutrophils # Man 15.8 H Lymphocytes # (Manual) Monocytes # (Manual) Eosinophils # (Manual) Basophils # (Manual) PT INR D-Dimer ABG pH POC ABG pCO2 POC ABG pO2 ABG pO2 ABG HCO3 ABG O2 Saturation ABG Base Excess ABG Hemoglobin ABG Oxyhemoglobin ABG Potassium ABG Glucose Oxyhemoglobin Carboxyhemoglobin Sodium Potassium Chloride Carbon Dioxide BUN Creatinine Glucose POC Glucose 137 H 112 H Calcium Ferritin Total Bilirubin Alkaline Phosphatase Lactate Dehydrogenase Total Creatine Kinase CK-MB (CK-2) Rel Index Troponin T C-Reactive Protein Total Protein Albumin Prealbumin LDL Cholesterol Direct HDL Cholesterol Arterial Blood Glucose Arterial Blood Ionized Calcium Urine WBC (Auto) 03/24/20 03/24/20 03/24/20 07:15 11:22 23:30 WBC RBC Hgb Hct MCV MCH RDW Plt Count Lymph % (Auto) [place] % (Auto) Eos % (Auto) Lymph # (Auto) [place] # (Auto) Eos # (Auto) Seg Neutrophils % Seg Neuts % (Manual) Lymphocytes % (Manual) Monocytes % (Manual) Basophils % (Manual) Seg Neutrophils # Seg Neutrophils # Man Lymphocytes # (Manual) Monocytes # (Manual) Eosinophils # (Manual) Basophils # (Manual) PT INR D-Dimer ABG pH POC ABG pCO2 POC ABG pO2 ABG pO2 ABG HCO3 ABG O2 Saturation ABG Base Excess ABG Hemoglobin ABG Oxyhemoglobin ABG Potassium ABG Glucose Oxyhemoglobin Carboxyhemoglobin Sodium Potassium Chloride 96.6 L Carbon Dioxide 38 H BUN Creatinine < 0.2 L Glucose 141 H POC Glucose 130 H 120 H Calcium Ferritin Total Bilirubin Alkaline Phosphatase Lactate Dehydrogenase Total Creatine Kinase CK-MB (CK-2) Rel Index Troponin T C-Reactive Protein Total Protein Albumin Prealbumin LDL Cholesterol Direct HDL Cholesterol Arterial Blood Glucose Arterial Blood Ionized Calcium Urine WBC (Auto) 03/25/20 03/25/20 03/25/20 05:48 17:53 23:18 WBC RBC Hgb Hct MCV MCH RDW Plt Count Lymph % (Auto) [place] % (Auto) Eos % (Auto) Lymph # (Auto) [place] # (Auto) Eos # (Auto) Seg Neutrophils % Seg Neuts % (Manual) Lymphocytes % (Manual) Monocytes % (Manual) Basophils % (Manual) Seg Neutrophils # Seg Neutrophils # Man Lymphocytes # (Manual) Monocytes # (Manual) Eosinophils # (Manual) Basophils # (Manual) PT INR D-Dimer ABG pH POC ABG pCO2 POC ABG pO2 ABG pO2 ABG HCO3 ABG O2 Saturation ABG Base Excess ABG Hemoglobin ABG Oxyhemoglobin ABG Potassium ABG Glucose Oxyhemoglobin Carboxyhemoglobin Sodium Potassium Chloride Carbon Dioxide BUN Creatinine Glucose POC Glucose 124 H 109 H 131 H Calcium Ferritin Total Bilirubin Alkaline Phosphatase Lactate Dehydrogenase Total Creatine Kinase CK-MB (CK-2) Rel Index Troponin T C-Reactive Protein Total Protein Albumin Prealbumin LDL Cholesterol Direct HDL Cholesterol Arterial Blood Glucose Arterial Blood Ionized Calcium Urine WBC (Auto) 03/26/20 03/26/20 03/26/20 05:21 08:49 08:49 WBC 19.7 H RBC Hgb 10.7 L Hct 33.5 L MCV MCH 27 L RDW 17.1 H Plt Count 480 H Lymph % (Auto) 5.7 L [place] % (Auto) Eos % (Auto) Lymph # (Auto) 1.1 L [place] # (Auto) 1.2 H Eos # (Auto) Seg Neutrophils % 87.7 H Seg Neuts % (Manual) Lymphocytes % (Manual) Monocytes % (Manual) Basophils % (Manual) Seg Neutrophils # 17.2 H Seg Neutrophils # Man Lymphocytes # (Manual) Monocytes # (Manual) Eosinophils # (Manual) Basophils # (Manual) PT INR D-Dimer ABG pH POC ABG pCO2 POC ABG pO2 ABG pO2 ABG HCO3 ABG O2 Saturation ABG Base Excess ABG Hemoglobin ABG Oxyhemoglobin ABG Potassium ABG Glucose Oxyhemoglobin Carboxyhemoglobin Sodium Potassium Chloride 97.2 L Carbon Dioxide 36 H BUN Creatinine < 0.2 L Glucose 127 H POC Glucose 116 H Calcium Ferritin Total Bilirubin Alkaline Phosphatase Lactate Dehydrogenase Total Creatine Kinase CK-MB (CK-2) Rel Index Troponin T C-Reactive Protein Total Protein Albumin Prealbumin LDL Cholesterol Direct HDL Cholesterol Arterial Blood Glucose Arterial Blood Ionized Calcium Urine WBC (Auto) 03/26/20 03/26/20 03/26/20 11:38 18:44 23:06 WBC RBC Hgb Hct MCV MCH RDW Plt Count Lymph % (Auto) [place] % (Auto) Eos % (Auto) Lymph # (Auto) [place] # (Auto) Eos # (Auto) Seg Neutrophils % Seg Neuts % (Manual) Lymphocytes % (Manual) Monocytes % (Manual) Basophils % (Manual) Seg Neutrophils # Seg Neutrophils # Man Lymphocytes # (Manual) Monocytes # (Manual) Eosinophils # (Manual) Basophils # (Manual) PT INR D-Dimer ABG pH POC ABG pCO2 POC ABG pO2 ABG pO2 ABG HCO3 ABG O2 Saturation ABG Base Excess ABG Hemoglobin ABG Oxyhemoglobin ABG Potassium ABG Glucose Oxyhemoglobin Carboxyhemoglobin Sodium Potassium Chloride Carbon Dioxide BUN Creatinine Glucose POC Glucose 120 H 111 H 134 H Calcium Ferritin Total Bilirubin Alkaline Phosphatase Lactate Dehydrogenase Total Creatine Kinase CK-MB (CK-2) Rel Index Troponin T C-Reactive Protein Total Protein Albumin Prealbumin LDL Cholesterol Direct HDL Cholesterol Arterial Blood Glucose Arterial Blood Ionized Calcium Urine WBC (Auto) 03/27/20 03/27/20 03/27/20 05:41 05:59 05:59 WBC 18.6 H RBC Hgb 10.1 L Hct 31.4 L MCV MCH RDW 17.2 H Plt Count Lymph % (Auto) 8.0 L [place] % (Auto) Eos % (Auto) Lymph # (Auto) [place] # (Auto) 1.2 H Eos # (Auto) Seg Neutrophils % 84.7 H Seg Neuts % (Manual) Lymphocytes % (Manual) Monocytes % (Manual) Basophils % (Manual) Seg Neutrophils # 15.8 H Seg Neutrophils # Man Lymphocytes # (Manual) Monocytes # (Manual) Eosinophils # (Manual) Basophils # (Manual) PT INR D-Dimer ABG pH POC ABG pCO2 POC ABG pO2 ABG pO2 ABG HCO3 ABG O2 Saturation ABG Base Excess ABG Hemoglobin ABG Oxyhemoglobin ABG Potassium ABG Glucose Oxyhemoglobin Carboxyhemoglobin Sodium Potassium Chloride Carbon Dioxide 34 H BUN Creatinine < 0.2 L Glucose 127 H POC Glucose 129 H Calcium Ferritin Total Bilirubin Alkaline Phosphatase Lactate Dehydrogenase Total Creatine Kinase CK-MB (CK-2) Rel Index Troponin T C-Reactive Protein Total Protein Albumin Prealbumin LDL Cholesterol Direct HDL Cholesterol Arterial Blood Glucose Arterial Blood Ionized Calcium Urine WBC (Auto) 03/27/20 03/27/20 03/28/20 17:28 23:22 05:23 WBC RBC Hgb Hct MCV MCH RDW Plt Count Lymph % (Auto) [place] % (Auto) Eos % (Auto) Lymph # (Auto) [place] # (Auto) Eos # (Auto) Seg Neutrophils % Seg Neuts % (Manual) Lymphocytes % (Manual) Monocytes % (Manual) Basophils % (Manual) Seg Neutrophils # Seg Neutrophils # Man Lymphocytes # (Manual) Monocytes # (Manual) Eosinophils # (Manual) Basophils # (Manual) PT INR D-Dimer ABG pH POC ABG pCO2 POC ABG pO2 ABG pO2 ABG HCO3 ABG O2 Saturation ABG Base Excess ABG Hemoglobin ABG Oxyhemoglobin ABG Potassium ABG Glucose Oxyhemoglobin Carboxyhemoglobin Sodium Potassium Chloride Carbon Dioxide BUN Creatinine Glucose POC Glucose 108 H 119 H 129 H Calcium Ferritin Total Bilirubin Alkaline Phosphatase Lactate Dehydrogenase Total Creatine Kinase CK-MB (CK-2) Rel Index Troponin T C-Reactive Protein Total Protein Albumin Prealbumin LDL Cholesterol Direct HDL Cholesterol Arterial Blood Glucose Arterial Blood Ionized Calcium Urine WBC (Auto) 03/28/20 03/28/20 03/28/20 10:28 10:28 11:36 WBC 23.6 H RBC 3.62 L Hgb 10.0 L Hct 30.8 L MCV MCH RDW 16.4 H Plt Count Lymph % (Auto) [place] % (Auto) Eos % (Auto) Lymph # (Auto) [place] # (Auto) Eos # (Auto) Seg Neutrophils % Seg Neuts % (Manual) 89.0 H Lymphocytes % (Manual) 5.0 L Monocytes % (Manual) Basophils % (Manual) Seg Neutrophils # Seg Neutrophils # Man 21.0 H Lymphocytes # (Manual) Monocytes # (Manual) 1.2 H Eosinophils # (Manual) Basophils # (Manual) 0.2 H PT INR D-Dimer ABG pH POC ABG pCO2 POC ABG pO2 ABG pO2 ABG HCO3 ABG O2 Saturation ABG Base Excess ABG Hemoglobin ABG Oxyhemoglobin ABG Potassium ABG Glucose Oxyhemoglobin Carboxyhemoglobin Sodium 134 L Potassium Chloride 94.2 L Carbon Dioxide 35 H BUN Creatinine < 0.2 L Glucose 134 H POC Glucose Calcium Ferritin Total Bilirubin Alkaline Phosphatase Lactate Dehydrogenase Total Creatine Kinase CK-MB (CK-2) Rel Index Troponin T C-Reactive Protein Total Protein Albumin Prealbumin LDL Cholesterol Direct HDL Cholesterol Arterial Blood Glucose Arterial Blood Ionized Calcium Urine WBC (Auto) 39.0 H 03/28/20 03/28/20 03/28/20 11:51 17:08 17:17 WBC RBC Hgb Hct MCV MCH RDW Plt Count Lymph % (Auto) [place] % (Auto) Eos % (Auto) Lymph # (Auto) [place] # (Auto) Eos # (Auto) Seg Neutrophils % Seg Neuts % (Manual) Lymphocytes % (Manual) Monocytes % (Manual) Basophils % (Manual) Seg Neutrophils # Seg Neutrophils # Man Lymphocytes # (Manual) Monocytes # (Manual) Eosinophils # (Manual) Basophils # (Manual) PT INR D-Dimer ABG pH POC ABG pCO2 POC ABG pO2 ABG pO2 ABG HCO3 ABG O2 Saturation ABG Base Excess ABG Hemoglobin ABG Oxyhemoglobin ABG Potassium ABG Glucose Oxyhemoglobin Carboxyhemoglobin Sodium Potassium Chloride Carbon Dioxide BUN Creatinine Glucose POC Glucose 123 H 112 H Calcium Ferritin Total Bilirubin Alkaline Phosphatase Lactate Dehydrogenase Total Creatine Kinase 47 L CK-MB (CK-2) Rel Index 4.6 H Troponin T 0.090 H C-Reactive Protein Total Protein Albumin Prealbumin LDL Cholesterol Direct HDL Cholesterol Arterial Blood Glucose Arterial Blood Ionized Calcium Urine WBC (Auto) 03/28/20 03/29/20 03/29/20 23:22 05:22 10:58 WBC RBC Hgb Hct MCV MCH RDW Plt Count Lymph % (Auto) [place] % (Auto) Eos % (Auto) Lymph # (Auto) [place] # (Auto) Eos # (Auto) Seg Neutrophils % Seg Neuts % (Manual) Lymphocytes % (Manual) Monocytes % (Manual) Basophils % (Manual) Seg Neutrophils # Seg Neutrophils # Man Lymphocytes # (Manual) Monocytes # (Manual) Eosinophils # (Manual) Basophils # (Manual) PT INR D-Dimer ABG pH POC ABG pCO2 POC ABG pO2 ABG pO2 ABG HCO3 ABG O2 Saturation ABG Base Excess ABG Hemoglobin ABG Oxyhemoglobin ABG Potassium ABG Glucose Oxyhemoglobin Carboxyhemoglobin Sodium Potassium Chloride Carbon Dioxide BUN Creatinine Glucose POC Glucose 122 H 116 H 133 H Calcium Ferritin Total Bilirubin Alkaline Phosphatase Lactate Dehydrogenase Total Creatine Kinase CK-MB (CK-2) Rel Index Troponin T C-Reactive Protein Total Protein Albumin Prealbumin LDL Cholesterol Direct HDL Cholesterol Arterial Blood Glucose Arterial Blood Ionized Calcium Urine WBC (Auto) 03/29/20 03/29/20 03/30/20 17:18 23:14 04:57 WBC RBC Hgb Hct MCV MCH RDW Plt Count Lymph % (Auto) [place] % (Auto) Eos % (Auto) Lymph # (Auto) [place] # (Auto) Eos # (Auto) Seg Neutrophils % Seg Neuts % (Manual) Lymphocytes % (Manual) Monocytes % (Manual) Basophils % (Manual) Seg Neutrophils # Seg Neutrophils # Man Lymphocytes # (Manual) Monocytes # (Manual) Eosinophils # (Manual) Basophils # (Manual) PT INR D-Dimer ABG pH POC ABG pCO2 POC ABG pO2 ABG pO2 ABG HCO3 ABG O2 Saturation ABG Base Excess ABG Hemoglobin ABG Oxyhemoglobin ABG Potassium ABG Glucose Oxyhemoglobin Carboxyhemoglobin Sodium Potassium Chloride Carbon Dioxide BUN Creatinine Glucose POC Glucose 111 H 114 H 130 H Calcium Ferritin Total Bilirubin Alkaline Phosphatase Lactate Dehydrogenase Total Creatine Kinase CK-MB (CK-2) Rel Index Troponin T C-Reactive Protein Total Protein Albumin Prealbumin LDL Cholesterol Direct HDL Cholesterol Arterial Blood Glucose Arterial Blood Ionized Calcium Urine WBC (Auto) 03/30/20 03/30/20 03/30/20 11:38 14:47 14:47 WBC 19.9 H RBC Hgb 10.9 L Hct 34.4 L MCV MCH 27 L RDW 16.5 H Plt Count 441 H Lymph % (Auto) 6.4 L [place] % (Auto) Eos % (Auto) Lymph # (Auto) [place] # (Auto) 1.4 H Eos # (Auto) Seg Neutrophils % 86.1 H Seg Neuts % (Manual) Lymphocytes % (Manual) Monocytes % (Manual) Basophils % (Manual) Seg Neutrophils # 17.1 H Seg Neutrophils # Man Lymphocytes # (Manual) Monocytes # (Manual) Eosinophils # (Manual) Basophils # (Manual) PT INR D-Dimer ABG pH POC ABG pCO2 POC ABG pO2 ABG pO2 ABG HCO3 ABG O2 Saturation ABG Base Excess ABG Hemoglobin ABG Oxyhemoglobin ABG Potassium ABG Glucose Oxyhemoglobin Carboxyhemoglobin Sodium 133 L Potassium Chloride 94.6 L Carbon Dioxide 33 H BUN Creatinine < 0.2 L Glucose 194 H POC Glucose 139 H Calcium Ferritin Total Bilirubin Alkaline Phosphatase Lactate Dehydrogenase Total Creatine Kinase CK-MB (CK-2) Rel Index Troponin T C-Reactive Protein Total Protein Albumin 2.8 L Prealbumin LDL Cholesterol Direct HDL Cholesterol Arterial Blood Glucose Arterial Blood Ionized Calcium Urine WBC (Auto) 03/30/20 03/31/20 03/31/20 17:07 05:02 15:21 WBC RBC Hgb Hct MCV MCH RDW Plt Count Lymph % (Auto) [place] % (Auto) Eos % (Auto) Lymph # (Auto) [place] # (Auto) Eos # (Auto) Seg Neutrophils % Seg Neuts % (Manual) Lymphocytes % (Manual) Monocytes % (Manual) Basophils % (Manual) Seg Neutrophils # Seg Neutrophils # Man Lymphocytes # (Manual) Monocytes # (Manual) Eosinophils # (Manual) Basophils # (Manual) PT INR D-Dimer ABG pH POC ABG pCO2 POC ABG pO2 ABG pO2 ABG HCO3 ABG O2 Saturation ABG Base Excess ABG Hemoglobin ABG Oxyhemoglobin ABG Potassium ABG Glucose Oxyhemoglobin Carboxyhemoglobin Sodium Potassium Chloride Carbon Dioxide BUN Creatinine Glucose POC Glucose 163 H 108 H 110 H Calcium Ferritin Total Bilirubin Alkaline Phosphatase Lactate Dehydrogenase Total Creatine Kinase CK-MB (CK-2) Rel Index Troponin T C-Reactive Protein Total Protein Albumin Prealbumin LDL Cholesterol Direct HDL Cholesterol Arterial Blood Glucose Arterial Blood Ionized Calcium Urine WBC (Auto) 03/31/20 03/31/20 04/01/20 17:58 23:19 05:09 WBC RBC Hgb Hct MCV MCH RDW Plt Count Lymph % (Auto) [place] % (Auto) Eos % (Auto) Lymph # (Auto) [place] # (Auto) Eos # (Auto) Seg Neutrophils % Seg Neuts % (Manual) Lymphocytes % (Manual) Monocytes % (Manual) Basophils % (Manual) Seg Neutrophils # Seg Neutrophils # Man Lymphocytes # (Manual) Monocytes # (Manual) Eosinophils # (Manual) Basophils # (Manual) PT INR D-Dimer ABG pH POC ABG pCO2 POC ABG pO2 ABG pO2 ABG HCO3 ABG O2 Saturation ABG Base Excess ABG Hemoglobin ABG Oxyhemoglobin ABG Potassium ABG Glucose Oxyhemoglobin Carboxyhemoglobin Sodium Potassium Chloride Carbon Dioxide BUN Creatinine Glucose POC Glucose 110 H 131 H 124 H Calcium Ferritin Total Bilirubin Alkaline Phosphatase Lactate Dehydrogenase Total Creatine Kinase CK-MB (CK-2) Rel Index Troponin T C-Reactive Protein Total Protein Albumin Prealbumin LDL Cholesterol Direct HDL Cholesterol Arterial Blood Glucose Arterial Blood Ionized Calcium Urine WBC (Auto) 04/01/20 04/01/20 04/01/20 11:50 17:01 23:21 WBC RBC Hgb Hct MCV MCH RDW Plt Count Lymph % (Auto) [place] % (Auto) Eos % (Auto) Lymph # (Auto) [place] # (Auto) Eos # (Auto) Seg Neutrophils % Seg Neuts % (Manual) Lymphocytes % (Manual) Monocytes % (Manual) Basophils % (Manual) Seg Neutrophils # Seg Neutrophils # Man Lymphocytes # (Manual) Monocytes # (Manual) Eosinophils # (Manual) Basophils # (Manual) PT INR D-Dimer ABG pH POC ABG pCO2 POC ABG pO2 ABG pO2 ABG HCO3 ABG O2 Saturation ABG Base Excess ABG Hemoglobin ABG Oxyhemoglobin ABG Potassium ABG Glucose Oxyhemoglobin Carboxyhemoglobin Sodium Potassium Chloride Carbon Dioxide BUN Creatinine Glucose POC Glucose 136 H 115 H 124 H Calcium Ferritin Total Bilirubin Alkaline Phosphatase Lactate Dehydrogenase Total Creatine Kinase CK-MB (CK-2) Rel Index Troponin T C-Reactive Protein Total Protein Albumin Prealbumin LDL Cholesterol Direct HDL Cholesterol Arterial Blood Glucose Arterial Blood Ionized Calcium Urine WBC (Auto) 04/02/20 04/02/20 04/02/20 05:27 11:58 17:58 WBC RBC Hgb Hct MCV MCH RDW Plt Count Lymph % (Auto) [place] % (Auto) Eos % (Auto) Lymph # (Auto) [place] # (Auto) Eos # (Auto) Seg Neutrophils % Seg Neuts % (Manual) Lymphocytes % (Manual) Monocytes % (Manual) Basophils % (Manual) Seg Neutrophils # Seg Neutrophils # Man Lymphocytes # (Manual) Monocytes # (Manual) Eosinophils # (Manual) Basophils # (Manual) PT INR D-Dimer ABG pH POC ABG pCO2 POC ABG pO2 ABG pO2 ABG HCO3 ABG O2 Saturation ABG Base Excess ABG Hemoglobin ABG Oxyhemoglobin ABG Potassium ABG Glucose Oxyhemoglobin Carboxyhemoglobin Sodium Potassium Chloride Carbon Dioxide BUN Creatinine Glucose POC Glucose 117 H 133 H 122 H Calcium Ferritin Total Bilirubin Alkaline Phosphatase Lactate Dehydrogenase Total Creatine Kinase CK-MB (CK-2) Rel Index Troponin T C-Reactive Protein Total Protein Albumin Prealbumin LDL Cholesterol Direct HDL Cholesterol Arterial Blood Glucose Arterial Blood Ionized Calcium Urine WBC (Auto) 04/02/20 04/03/20 04/03/20 23:12 05:11 11:11 WBC RBC Hgb Hct MCV MCH RDW Plt Count Lymph % (Auto) [place] % (Auto) Eos % (Auto) Lymph # (Auto) [place] # (Auto) Eos # (Auto) Seg Neutrophils % Seg Neuts % (Manual) Lymphocytes % (Manual) Monocytes % (Manual) Basophils % (Manual) Seg Neutrophils # Seg Neutrophils # Man Lymphocytes # (Manual) Monocytes # (Manual) Eosinophils # (Manual) Basophils # (Manual) PT INR D-Dimer ABG pH POC ABG pCO2 POC ABG pO2 ABG pO2 ABG HCO3 ABG O2 Saturation ABG Base Excess ABG Hemoglobin ABG Oxyhemoglobin ABG Potassium ABG Glucose Oxyhemoglobin Carboxyhemoglobin Sodium Potassium Chloride Carbon Dioxide BUN Creatinine Glucose POC Glucose 130 H 139 H 136 H Calcium Ferritin Total Bilirubin Alkaline Phosphatase Lactate Dehydrogenase Total Creatine Kinase CK-MB (CK-2) Rel Index Troponin T C-Reactive Protein Total Protein Albumin Prealbumin LDL Cholesterol Direct HDL Cholesterol Arterial Blood Glucose Arterial Blood Ionized Calcium Urine WBC (Auto) 04/03/20 04/03/20 04/04/20 16:51 23:25 05:29 WBC RBC Hgb Hct MCV MCH RDW Plt Count Lymph % (Auto) [place] % (Auto) Eos % (Auto) Lymph # (Auto) [place] # (Auto) Eos # (Auto) Seg Neutrophils % Seg Neuts % (Manual) Lymphocytes % (Manual) Monocytes % (Manual) Basophils % (Manual) Seg Neutrophils # Seg Neutrophils # Man Lymphocytes # (Manual) Monocytes # (Manual) Eosinophils # (Manual) Basophils # (Manual) PT INR D-Dimer ABG pH POC ABG pCO2 POC ABG pO2 ABG pO2 ABG HCO3 ABG O2 Saturation ABG Base Excess ABG Hemoglobin ABG Oxyhemoglobin ABG Potassium ABG Glucose Oxyhemoglobin Carboxyhemoglobin Sodium Potassium Chloride Carbon Dioxide BUN Creatinine Glucose POC Glucose 118 H 111 H 126 H Calcium Ferritin Total Bilirubin Alkaline Phosphatase Lactate Dehydrogenase Total Creatine Kinase CK-MB (CK-2) Rel Index Troponin T C-Reactive Protein Total Protein Albumin Prealbumin LDL Cholesterol Direct HDL Cholesterol Arterial Blood Glucose Arterial Blood Ionized Calcium Urine WBC (Auto) 04/04/20 04/04/20 04/04/20 11:47 17:41 23:05 WBC RBC Hgb Hct MCV MCH RDW Plt Count Lymph % (Auto) [place] % (Auto) Eos % (Auto) Lymph # (Auto) [place] # (Auto) Eos # (Auto) Seg Neutrophils % Seg Neuts % (Manual) Lymphocytes % (Manual) Monocytes % (Manual) Basophils % (Manual) Seg Neutrophils # Seg Neutrophils # Man Lymphocytes # (Manual) Monocytes # (Manual) Eosinophils # (Manual) Basophils # (Manual) PT INR D-Dimer ABG pH POC ABG pCO2 POC ABG pO2 ABG pO2 ABG HCO3 ABG O2 Saturation ABG Base Excess ABG Hemoglobin ABG Oxyhemoglobin ABG Potassium ABG Glucose Oxyhemoglobin Carboxyhemoglobin Sodium Potassium Chloride Carbon Dioxide BUN Creatinine Glucose POC Glucose 123 H 120 H 119 H Calcium Ferritin Total Bilirubin Alkaline Phosphatase Lactate Dehydrogenase Total Creatine Kinase CK-MB (CK-2) Rel Index Troponin T C-Reactive Protein Total Protein Albumin Prealbumin LDL Cholesterol Direct HDL Cholesterol Arterial Blood Glucose Arterial Blood Ionized Calcium Urine WBC (Auto) 04/05/20 04/05/20 04/05/20 05:14 12:16 18:48 WBC RBC Hgb Hct MCV MCH RDW Plt Count Lymph % (Auto) [place] % (Auto) Eos % (Auto) Lymph # (Auto) [place] # (Auto) Eos # (Auto) Seg Neutrophils % Seg Neuts % (Manual) Lymphocytes % (Manual) Monocytes % (Manual) Basophils % (Manual) Seg Neutrophils # Seg Neutrophils # Man Lymphocytes # (Manual) Monocytes # (Manual) Eosinophils # (Manual) Basophils # (Manual) PT INR D-Dimer ABG pH POC ABG pCO2 POC ABG pO2 ABG pO2 ABG HCO3 ABG O2 Saturation ABG Base Excess ABG Hemoglobin ABG Oxyhemoglobin ABG Potassium ABG Glucose Oxyhemoglobin Carboxyhemoglobin Sodium Potassium Chloride Carbon Dioxide BUN Creatinine Glucose POC Glucose 123 H 148 H 106 H Calcium Ferritin Total Bilirubin Alkaline Phosphatase Lactate Dehydrogenase Total Creatine Kinase CK-MB (CK-2) Rel Index Troponin T C-Reactive Protein Total Protein Albumin Prealbumin LDL Cholesterol Direct HDL Cholesterol Arterial Blood Glucose Arterial Blood Ionized Calcium Urine WBC (Auto) 04/06/20 04/06/20 04/06/20 00:47 03:26 08:24 WBC RBC Hgb Hct MCV MCH RDW Plt Count Lymph % (Auto) [place] % (Auto) Eos % (Auto) Lymph # (Auto) [place] # (Auto) Eos # (Auto) Seg Neutrophils % Seg Neuts % (Manual) Lymphocytes % (Manual) Monocytes % (Manual) Basophils % (Manual) Seg Neutrophils # Seg Neutrophils # Man Lymphocytes # (Manual) Monocytes # (Manual) Eosinophils # (Manual) Basophils # (Manual) PT INR D-Dimer ABG pH POC ABG pCO2 POC ABG pO2 ABG pO2 ABG HCO3 ABG O2 Saturation ABG Base Excess ABG Hemoglobin ABG Oxyhemoglobin ABG Potassium ABG Glucose Oxyhemoglobin Carboxyhemoglobin Sodium Potassium Chloride Carbon Dioxide BUN Creatinine Glucose POC Glucose 129 H 134 H 131 H Calcium Ferritin Total Bilirubin Alkaline Phosphatase Lactate Dehydrogenase Total Creatine Kinase CK-MB (CK-2) Rel Index Troponin T C-Reactive Protein Total Protein Albumin Prealbumin LDL Cholesterol Direct HDL Cholesterol Arterial Blood Glucose Arterial Blood Ionized Calcium Urine WBC (Auto) 04/06/20 04/06/20 04/06/20 11:16 16:27 23:01 WBC RBC Hgb Hct MCV MCH RDW Plt Count Lymph % (Auto) [place] % (Auto) Eos % (Auto) Lymph # (Auto) [place] # (Auto) Eos # (Auto) Seg Neutrophils % Seg Neuts % (Manual) Lymphocytes % (Manual) Monocytes % (Manual) Basophils % (Manual) Seg Neutrophils # Seg Neutrophils # Man Lymphocytes # (Manual) Monocytes # (Manual) Eosinophils # (Manual) Basophils # (Manual) PT INR D-Dimer ABG pH POC ABG pCO2 POC ABG pO2 ABG pO2 ABG HCO3 ABG O2 Saturation ABG Base Excess ABG Hemoglobin ABG Oxyhemoglobin ABG Potassium ABG Glucose Oxyhemoglobin Carboxyhemoglobin Sodium Potassium Chloride Carbon Dioxide BUN Creatinine Glucose POC Glucose 131 H 107 H 125 H Calcium Ferritin Total Bilirubin Alkaline Phosphatase Lactate Dehydrogenase Total Creatine Kinase CK-MB (CK-2) Rel Index Troponin T C-Reactive Protein Total Protein Albumin Prealbumin LDL Cholesterol Direct HDL Cholesterol Arterial Blood Glucose Arterial Blood Ionized Calcium Urine WBC (Auto) 04/07/20 04/07/20 04/07/20 05:24 12:41 17:40 WBC RBC Hgb Hct MCV MCH RDW Plt Count Lymph % (Auto) [place] % (Auto) Eos % (Auto) Lymph # (Auto) [place] # (Auto) Eos # (Auto) Seg Neutrophils % Seg Neuts % (Manual) Lymphocytes % (Manual) Monocytes % (Manual) Basophils % (Manual) Seg Neutrophils # Seg Neutrophils # Man Lymphocytes # (Manual) Monocytes # (Manual) Eosinophils # (Manual) Basophils # (Manual) PT INR D-Dimer ABG pH POC ABG pCO2 POC ABG pO2 ABG pO2 ABG HCO3 ABG O2 Saturation ABG Base Excess ABG Hemoglobin ABG Oxyhemoglobin ABG Potassium ABG Glucose Oxyhemoglobin Carboxyhemoglobin Sodium Potassium Chloride Carbon Dioxide BUN Creatinine Glucose POC Glucose 125 H 145 H 123 H Calcium Ferritin Total Bilirubin Alkaline Phosphatase Lactate Dehydrogenase Total Creatine Kinase CK-MB (CK-2) Rel Index Troponin T C-Reactive Protein Total Protein Albumin Prealbumin LDL Cholesterol Direct HDL Cholesterol Arterial Blood Glucose Arterial Blood Ionized Calcium Urine WBC (Auto) 04/07/20 04/08/20 04/08/20 23:22 05:40 11:29 WBC RBC Hgb Hct MCV MCH RDW Plt Count Lymph % (Auto) [place] % (Auto) Eos % (Auto) Lymph # (Auto) [place] # (Auto) Eos # (Auto) Seg Neutrophils % Seg Neuts % (Manual) Lymphocytes % (Manual) Monocytes % (Manual) Basophils % (Manual) Seg Neutrophils # Seg Neutrophils # Man Lymphocytes # (Manual) Monocytes # (Manual) Eosinophils # (Manual) Basophils # (Manual) PT INR D-Dimer ABG pH POC ABG pCO2 POC ABG pO2 ABG pO2 ABG HCO3 ABG O2 Saturation ABG Base Excess ABG Hemoglobin ABG Oxyhemoglobin ABG Potassium ABG Glucose Oxyhemoglobin Carboxyhemoglobin Sodium Potassium Chloride Carbon Dioxide BUN Creatinine Glucose POC Glucose 133 H 125 H 116 H Calcium Ferritin Total Bilirubin Alkaline Phosphatase Lactate Dehydrogenase Total Creatine Kinase CK-MB (CK-2) Rel Index Troponin T C-Reactive Protein Total Protein Albumin Prealbumin LDL Cholesterol Direct HDL Cholesterol Arterial Blood Glucose Arterial Blood Ionized Calcium Urine WBC (Auto) 04/08/20 04/09/20 04/09/20 17:43 05:47 12:22 WBC RBC Hgb Hct MCV MCH RDW Plt Count Lymph % (Auto) [place] % (Auto) Eos % (Auto) Lymph # (Auto) [place] # (Auto) Eos # (Auto) Seg Neutrophils % Seg Neuts % (Manual) Lymphocytes % (Manual) Monocytes % (Manual) Basophils % (Manual) Seg Neutrophils # Seg Neutrophils # Man Lymphocytes # (Manual) Monocytes # (Manual) Eosinophils # (Manual) Basophils # (Manual) PT INR D-Dimer ABG pH POC ABG pCO2 POC ABG pO2 ABG pO2 ABG HCO3 ABG O2 Saturation ABG Base Excess ABG Hemoglobin ABG Oxyhemoglobin ABG Potassium ABG Glucose Oxyhemoglobin Carboxyhemoglobin Sodium Potassium Chloride Carbon Dioxide BUN Creatinine Glucose POC Glucose 123 H 108 H 116 H Calcium Ferritin Total Bilirubin Alkaline Phosphatase Lactate Dehydrogenase Total Creatine Kinase CK-MB (CK-2) Rel Index Troponin T C-Reactive Protein Total Protein Albumin Prealbumin LDL Cholesterol Direct HDL Cholesterol Arterial Blood Glucose Arterial Blood Ionized Calcium Urine WBC (Auto) 04/09/20 04/09/20 04/10/20 17:24 23:52 06:10 WBC RBC Hgb Hct MCV MCH RDW Plt Count Lymph % (Auto) [place] % (Auto) Eos % (Auto) Lymph # (Auto) [place] # (Auto) Eos # (Auto) Seg Neutrophils % Seg Neuts % (Manual) Lymphocytes % (Manual) Monocytes % (Manual) Basophils % (Manual) Seg Neutrophils # Seg Neutrophils # Man Lymphocytes # (Manual) Monocytes # (Manual) Eosinophils # (Manual) Basophils # (Manual) PT INR D-Dimer ABG pH POC ABG pCO2 POC ABG pO2 ABG pO2 ABG HCO3 ABG O2 Saturation ABG Base Excess ABG Hemoglobin ABG Oxyhemoglobin ABG Potassium ABG Glucose Oxyhemoglobin Carboxyhemoglobin Sodium Potassium Chloride Carbon Dioxide BUN Creatinine Glucose POC Glucose 108 H 126 H 122 H Calcium Ferritin Total Bilirubin Alkaline Phosphatase Lactate Dehydrogenase Total Creatine Kinase CK-MB (CK-2) Rel Index Troponin T C-Reactive Protein Total Protein Albumin Prealbumin LDL Cholesterol Direct HDL Cholesterol Arterial Blood Glucose Arterial Blood Ionized Calcium Urine WBC (Auto) 04/10/20 04/10/20 04/10/20 11:27 18:11 23:24 WBC RBC Hgb Hct MCV MCH RDW Plt Count Lymph % (Auto) [place] % (Auto) Eos % (Auto) Lymph # (Auto) [place] # (Auto) Eos # (Auto) Seg Neutrophils % Seg Neuts % (Manual) Lymphocytes % (Manual) Monocytes % (Manual) Basophils % (Manual) Seg Neutrophils # Seg Neutrophils # Man Lymphocytes # (Manual) Monocytes # (Manual) Eosinophils # (Manual) Basophils # (Manual) PT INR D-Dimer ABG pH POC ABG pCO2 POC ABG pO2 ABG pO2 ABG HCO3 ABG O2 Saturation ABG Base Excess ABG Hemoglobin ABG Oxyhemoglobin ABG Potassium ABG Glucose Oxyhemoglobin Carboxyhemoglobin Sodium Potassium Chloride Carbon Dioxide BUN Creatinine Glucose POC Glucose 129 H 125 H 107 H Calcium Ferritin Total Bilirubin Alkaline Phosphatase Lactate Dehydrogenase Total Creatine Kinase CK-MB (CK-2) Rel Index Troponin T C-Reactive Protein Total Protein Albumin Prealbumin LDL Cholesterol Direct HDL Cholesterol Arterial Blood Glucose Arterial Blood Ionized Calcium Urine WBC (Auto) 04/11/20 04/11/20 04/11/20 05:28 11:46 23:49 WBC RBC Hgb Hct MCV MCH RDW Plt Count Lymph % (Auto) [place] % (Auto) Eos % (Auto) Lymph # (Auto) [place] # (Auto) Eos # (Auto) Seg Neutrophils % Seg Neuts % (Manual) Lymphocytes % (Manual) Monocytes % (Manual) Basophils % (Manual) Seg Neutrophils # Seg Neutrophils # Man Lymphocytes # (Manual) Monocytes # (Manual) Eosinophils # (Manual) Basophils # (Manual) PT INR D-Dimer ABG pH POC ABG pCO2 POC ABG pO2 ABG pO2 ABG HCO3 ABG O2 Saturation ABG Base Excess ABG Hemoglobin ABG Oxyhemoglobin ABG Potassium ABG Glucose Oxyhemoglobin Carboxyhemoglobin Sodium Potassium Chloride Carbon Dioxide BUN Creatinine Glucose POC Glucose 122 H 122 H 116 H Calcium Ferritin Total Bilirubin Alkaline Phosphatase Lactate Dehydrogenase Total Creatine Kinase CK-MB (CK-2) Rel Index Troponin T C-Reactive Protein Total Protein Albumin Prealbumin LDL Cholesterol Direct HDL Cholesterol Arterial Blood Glucose Arterial Blood Ionized Calcium Urine WBC (Auto) 04/12/20 04/12/20 04/12/20 09:07 09:07 11:39 WBC 13.1 H RBC 3.59 L Hgb 9.5 L Hct 29.8 L MCV 83 L MCH 26 L RDW 16.6 H Plt Count 591 H Lymph % (Auto) [place] % (Auto) Eos % (Auto) Lymph # (Auto) [place] # (Auto) Eos # (Auto) Seg Neutrophils % Seg Neuts % (Manual) 86.0 H Lymphocytes % (Manual) 7.0 L Monocytes % (Manual) Basophils % (Manual) Seg Neutrophils # Seg Neutrophils # Man 11.3 H Lymphocytes # (Manual) 0.9 L Monocytes # (Manual) Eosinophils # (Manual) Basophils # (Manual) PT INR D-Dimer ABG pH POC ABG pCO2 POC ABG pO2 ABG pO2 ABG HCO3 ABG O2 Saturation ABG Base Excess ABG Hemoglobin ABG Oxyhemoglobin ABG Potassium ABG Glucose Oxyhemoglobin Carboxyhemoglobin Sodium Potassium Chloride Carbon Dioxide 36 H BUN Creatinine < 0.2 L Glucose 132 H POC Glucose 136 H Calcium Ferritin Total Bilirubin Alkaline Phosphatase Lactate Dehydrogenase Total Creatine Kinase CK-MB (CK-2) Rel Index Troponin T C-Reactive Protein Total Protein Albumin 2.7 L Prealbumin LDL Cholesterol Direct HDL Cholesterol Arterial Blood Glucose Arterial Blood Ionized Calcium Urine WBC (Auto) 04/12/20 04/12/20 04/13/20 18:13 23:07 05:45 WBC RBC Hgb Hct MCV MCH RDW Plt Count Lymph % (Auto) [place] % (Auto) Eos % (Auto) Lymph # (Auto) [place] # (Auto) Eos # (Auto) Seg Neutrophils % Seg Neuts % (Manual) Lymphocytes % (Manual) Monocytes % (Manual) Basophils % (Manual) Seg Neutrophils # Seg Neutrophils # Man Lymphocytes # (Manual) Monocytes # (Manual) Eosinophils # (Manual) Basophils # (Manual) PT INR D-Dimer ABG pH POC ABG pCO2 POC ABG pO2 ABG pO2 ABG HCO3 ABG O2 Saturation ABG Base Excess ABG Hemoglobin ABG Oxyhemoglobin ABG Potassium ABG Glucose Oxyhemoglobin Carboxyhemoglobin Sodium Potassium Chloride Carbon Dioxide BUN Creatinine Glucose POC Glucose 107 H 106 H 125 H Calcium Ferritin Total Bilirubin Alkaline Phosphatase Lactate Dehydrogenase Total Creatine Kinase CK-MB (CK-2) Rel Index Troponin T C-Reactive Protein Total Protein Albumin Prealbumin LDL Cholesterol Direct HDL Cholesterol Arterial Blood Glucose Arterial Blood Ionized Calcium Urine WBC (Auto) 04/13/20 04/13/20 04/13/20 11:18 17:56 23:33 WBC RBC Hgb Hct MCV MCH RDW Plt Count Lymph % (Auto) [place] % (Auto) Eos % (Auto) Lymph # (Auto) [place] # (Auto) Eos # (Auto) Seg Neutrophils % Seg Neuts % (Manual) Lymphocytes % (Manual) Monocytes % (Manual) Basophils % (Manual) Seg Neutrophils # Seg Neutrophils # Man Lymphocytes # (Manual) Monocytes # (Manual) Eosinophils # (Manual) Basophils # (Manual) PT INR D-Dimer ABG pH POC ABG pCO2 POC ABG pO2 ABG pO2 ABG HCO3 ABG O2 Saturation ABG Base Excess ABG Hemoglobin ABG Oxyhemoglobin ABG Potassium ABG Glucose Oxyhemoglobin Carboxyhemoglobin Sodium Potassium Chloride Carbon Dioxide BUN Creatinine Glucose POC Glucose 133 H 110 H 114 H Calcium Ferritin Total Bilirubin Alkaline Phosphatase Lactate Dehydrogenase Total Creatine Kinase CK-MB (CK-2) Rel Index Troponin T C-Reactive Protein Total Protein Albumin Prealbumin LDL Cholesterol Direct HDL Cholesterol Arterial Blood Glucose Arterial Blood Ionized Calcium Urine WBC (Auto) 04/14/20 04/14/20 04/14/20 05:58 11:45 17:48 WBC RBC Hgb Hct MCV MCH RDW Plt Count Lymph % (Auto) [place] % (Auto) Eos % (Auto) Lymph # (Auto) [place] # (Auto) Eos # (Auto) Seg Neutrophils % Seg Neuts % (Manual) Lymphocytes % (Manual) Monocytes % (Manual) Basophils % (Manual) Seg Neutrophils # Seg Neutrophils # Man Lymphocytes # (Manual) Monocytes # (Manual) Eosinophils # (Manual) Basophils # (Manual) PT INR D-Dimer ABG pH POC ABG pCO2 POC ABG pO2 ABG pO2 ABG HCO3 ABG O2 Saturation ABG Base Excess ABG Hemoglobin ABG Oxyhemoglobin ABG Potassium ABG Glucose Oxyhemoglobin Carboxyhemoglobin Sodium Potassium Chloride Carbon Dioxide BUN Creatinine Glucose POC Glucose 115 H 122 H 124 H Calcium Ferritin Total Bilirubin Alkaline Phosphatase Lactate Dehydrogenase Total Creatine Kinase CK-MB (CK-2) Rel Index Troponin T C-Reactive Protein Total Protein Albumin Prealbumin LDL Cholesterol Direct HDL Cholesterol Arterial Blood Glucose Arterial Blood Ionized Calcium Urine WBC (Auto) 04/15/20 04/15/20 04/15/20 00:11 05:38 11:31 WBC RBC Hgb Hct MCV MCH RDW Plt Count Lymph % (Auto) [place] % (Auto) Eos % (Auto) Lymph # (Auto) [place] # (Auto) Eos # (Auto) Seg Neutrophils % Seg Neuts % (Manual) Lymphocytes % (Manual) Monocytes % (Manual) Basophils % (Manual) Seg Neutrophils # Seg Neutrophils # Man Lymphocytes # (Manual) Monocytes # (Manual) Eosinophils # (Manual) Basophils # (Manual) PT INR D-Dimer ABG pH POC ABG pCO2 POC ABG pO2 ABG pO2 ABG HCO3 ABG O2 Saturation ABG Base Excess ABG Hemoglobin ABG Oxyhemoglobin ABG Potassium ABG Glucose Oxyhemoglobin Carboxyhemoglobin Sodium Potassium Chloride Carbon Dioxide BUN Creatinine Glucose POC Glucose 120 H 109 H 123 H Calcium Ferritin Total Bilirubin Alkaline Phosphatase Lactate Dehydrogenase Total Creatine Kinase CK-MB (CK-2) Rel Index Troponin T C-Reactive Protein Total Protein Albumin Prealbumin LDL Cholesterol Direct HDL Cholesterol Arterial Blood Glucose Arterial Blood Ionized Calcium Urine WBC (Auto) 04/15/20 04/16/20 04/16/20 17:35 06:00 11:29 WBC RBC Hgb Hct MCV MCH RDW Plt Count Lymph % (Auto) [place] % (Auto) Eos % (Auto) Lymph # (Auto) [place] # (Auto) Eos # (Auto) Seg Neutrophils % Seg Neuts % (Manual) Lymphocytes % (Manual) Monocytes % (Manual) Basophils % (Manual) Seg Neutrophils # Seg Neutrophils # Man Lymphocytes # (Manual) Monocytes # (Manual) Eosinophils # (Manual) Basophils # (Manual) PT INR D-Dimer ABG pH POC ABG pCO2 POC ABG pO2 ABG pO2 ABG HCO3 ABG O2 Saturation ABG Base Excess ABG Hemoglobin ABG Oxyhemoglobin ABG Potassium ABG Glucose Oxyhemoglobin Carboxyhemoglobin Sodium Potassium Chloride Carbon Dioxide BUN Creatinine Glucose POC Glucose 111 H 142 H 108 H Calcium Ferritin Total Bilirubin Alkaline Phosphatase Lactate Dehydrogenase Total Creatine Kinase CK-MB (CK-2) Rel Index Troponin T C-Reactive Protein Total Protein Albumin Prealbumin LDL Cholesterol Direct HDL Cholesterol Arterial Blood Glucose Arterial Blood Ionized Calcium Urine WBC (Auto) 04/17/20 04/17/20 04/17/20 05:09 06:53 06:53 WBC 14.2 H RBC Hgb 10.1 L Hct 31.5 L MCV MCH 27 L RDW 17.2 H Plt Count 643 H Lymph % (Auto) [place] % (Auto) Eos % (Auto) Lymph # (Auto) [place] # (Auto) Eos # (Auto) Seg Neutrophils % Seg Neuts % (Manual) Lymphocytes % (Manual) Monocytes % (Manual) Basophils % (Manual) Seg Neutrophils # Seg Neutrophils # Man Lymphocytes # (Manual) Monocytes # (Manual) Eosinophils # (Manual) Basophils # (Manual) PT INR D-Dimer ABG pH POC ABG pCO2 POC ABG pO2 ABG pO2 ABG HCO3 ABG O2 Saturation ABG Base Excess ABG Hemoglobin ABG Oxyhemoglobin ABG Potassium ABG Glucose Oxyhemoglobin Carboxyhemoglobin Sodium Potassium Chloride 97.7 L Carbon Dioxide 38 H BUN Creatinine < 0.2 L Glucose 126 H POC Glucose 131 H Calcium Ferritin Total Bilirubin Alkaline Phosphatase Lactate Dehydrogenase Total Creatine Kinase CK-MB (CK-2) Rel Index Troponin T C-Reactive Protein Total Protein Albumin Prealbumin LDL Cholesterol Direct HDL Cholesterol Arterial Blood Glucose Arterial Blood Ionized Calcium Urine WBC (Auto) 04/17/20 04/18/20 04/18/20 11:21 00:23 04:01 WBC 15.3 H RBC Hgb 10.1 L Hct 31.9 L MCV 82 L MCH 26 L RDW 17.2 H Plt Count 665 H Lymph % (Auto) 12.9 L [place] % (Auto) Eos % (Auto) Lymph # (Auto) [place] # (Auto) 1.1 H Eos # (Auto) Seg Neutrophils % 78.0 H Seg Neuts % (Manual) Lymphocytes % (Manual) Monocytes % (Manual) Basophils % (Manual) Seg Neutrophils # 11.9 H Seg Neutrophils # Man Lymphocytes # (Manual) Monocytes # (Manual) Eosinophils # (Manual) Basophils # (Manual) PT INR D-Dimer ABG pH POC ABG pCO2 POC ABG pO2 ABG pO2 ABG HCO3 ABG O2 Saturation ABG Base Excess ABG Hemoglobin ABG Oxyhemoglobin ABG Potassium ABG Glucose Oxyhemoglobin Carboxyhemoglobin Sodium Potassium Chloride Carbon Dioxide BUN Creatinine Glucose POC Glucose 140 H 125 H Calcium Ferritin Total Bilirubin Alkaline Phosphatase Lactate Dehydrogenase Total Creatine Kinase CK-MB (CK-2) Rel Index Troponin T C-Reactive Protein Total Protein Albumin Prealbumin LDL Cholesterol Direct HDL Cholesterol Arterial Blood Glucose Arterial Blood Ionized Calcium Urine WBC (Auto) 04/18/20 04/18/20 04/18/20 04:01 11:29 17:30 WBC RBC Hgb Hct MCV MCH RDW Plt Count Lymph % (Auto) [place] % (Auto) Eos % (Auto) Lymph # (Auto) [place] # (Auto) Eos # (Auto) Seg Neutrophils % Seg Neuts % (Manual) Lymphocytes % (Manual) Monocytes % (Manual) Basophils % (Manual) Seg Neutrophils # Seg Neutrophils # Man Lymphocytes # (Manual) Monocytes # (Manual) Eosinophils # (Manual) Basophils # (Manual) PT INR D-Dimer ABG pH POC ABG pCO2 POC ABG pO2 ABG pO2 ABG HCO3 ABG O2 Saturation ABG Base Excess ABG Hemoglobin ABG Oxyhemoglobin ABG Potassium ABG Glucose Oxyhemoglobin Carboxyhemoglobin Sodium Potassium Chloride 97.0 L Carbon Dioxide 38 H BUN Creatinine < 0.2 L Glucose 117 H POC Glucose 136 H 107 H Calcium Ferritin Total Bilirubin Alkaline Phosphatase Lactate Dehydrogenase Total Creatine Kinase CK-MB (CK-2) Rel Index Troponin T C-Reactive Protein Total Protein Albumin Prealbumin LDL Cholesterol Direct HDL Cholesterol Arterial Blood Glucose Arterial Blood Ionized Calcium Urine WBC (Auto) 04/18/20 04/19/20 04/19/20 23:19 06:51 06:51 WBC 12.2 H RBC Hgb 9.8 L Hct 31.1 L MCV 82 L MCH 26 L RDW 17.2 H Plt Count 549 H Lymph % (Auto) 6.5 L [place] % (Auto) Eos % (Auto) Lymph # (Auto) 0.8 L [place] # (Auto) Eos # (Auto) Seg Neutrophils % 86.7 H Seg Neuts % (Manual) Lymphocytes % (Manual) Monocytes % (Manual) Basophils % (Manual) Seg Neutrophils # 10.6 H Seg Neutrophils # Man Lymphocytes # (Manual) Monocytes # (Manual) Eosinophils # (Manual) Basophils # (Manual) PT INR D-Dimer ABG pH POC ABG pCO2 POC ABG pO2 ABG pO2 ABG HCO3 ABG O2 Saturation ABG Base Excess ABG Hemoglobin ABG Oxyhemoglobin ABG Potassium ABG Glucose Oxyhemoglobin Carboxyhemoglobin Sodium Potassium Chloride 97.8 L Carbon Dioxide 38 H BUN Creatinine < 0.2 L Glucose 123 H POC Glucose 127 H Calcium Ferritin Total Bilirubin Alkaline Phosphatase Lactate Dehydrogenase Total Creatine Kinase CK-MB (CK-2) Rel Index Troponin T C-Reactive Protein Total Protein Albumin Prealbumin LDL Cholesterol Direct HDL Cholesterol Arterial Blood Glucose Arterial Blood Ionized Calcium Urine WBC (Auto) 04/19/20 04/19/20 04/20/20 13:41 18:33 05:56 WBC RBC Hgb Hct MCV MCH RDW Plt Count Lymph % (Auto) [place] % (Auto) Eos % (Auto) Lymph # (Auto) [place] # (Auto) Eos # (Auto) Seg Neutrophils % Seg Neuts % (Manual) Lymphocytes % (Manual) Monocytes % (Manual) Basophils % (Manual) Seg Neutrophils # Seg Neutrophils # Man Lymphocytes # (Manual) Monocytes # (Manual) Eosinophils # (Manual) Basophils # (Manual) PT INR D-Dimer ABG pH POC ABG pCO2 POC ABG pO2 ABG pO2 ABG HCO3 ABG O2 Saturation ABG Base Excess ABG Hemoglobin ABG Oxyhemoglobin ABG Potassium ABG Glucose Oxyhemoglobin Carboxyhemoglobin Sodium Potassium Chloride Carbon Dioxide BUN Creatinine Glucose POC Glucose 116 H 124 H 130 H Calcium Ferritin Total Bilirubin Alkaline Phosphatase Lactate Dehydrogenase Total Creatine Kinase CK-MB (CK-2) Rel Index Troponin T C-Reactive Protein Total Protein Albumin Prealbumin LDL Cholesterol Direct HDL Cholesterol Arterial Blood Glucose Arterial Blood Ionized Calcium Urine WBC (Auto) 04/20/20 04/20/20 04/20/20 06:28 06:28 11:46 WBC RBC Hgb 10.2 L Hct 31.5 L MCV 82 L MCH 27 L RDW 17.1 H Plt Count 546 H Lymph % (Auto) 10.0 L [place] % (Auto) 9.8 H Eos % (Auto) Lymph # (Auto) 1.1 L [place] # (Auto) 1.1 H Eos # (Auto) Seg Neutrophils % 78.4 H Seg Neuts % (Manual) Lymphocytes % (Manual) Monocytes % (Manual) Basophils % (Manual) Seg Neutrophils # 8.5 H Seg Neutrophils # Man Lymphocytes # (Manual) Monocytes # (Manual) Eosinophils # (Manual) Basophils # (Manual) PT INR D-Dimer ABG pH POC ABG pCO2 POC ABG pO2 ABG pO2 ABG HCO3 ABG O2 Saturation ABG Base Excess ABG Hemoglobin ABG Oxyhemoglobin ABG Potassium ABG Glucose Oxyhemoglobin Carboxyhemoglobin Sodium Potassium Chloride 97.0 L Carbon Dioxide 38 H BUN Creatinine < 0.2 L Glucose 138 H POC Glucose 130 H Calcium Ferritin Total Bilirubin Alkaline Phosphatase Lactate Dehydrogenase Total Creatine Kinase CK-MB (CK-2) Rel Index Troponin T C-Reactive Protein Total Protein Albumin Prealbumin LDL Cholesterol Direct HDL Cholesterol Arterial Blood Glucose Arterial Blood Ionized Calcium Urine WBC (Auto) 04/20/20 04/21/20 04/21/20 23:31 05:55 05:55 WBC RBC Hgb 10.0 L Hct 31.1 L MCV 82 L MCH 26 L RDW 17.0 H Plt Count 535 H Lymph % (Auto) [place] % (Auto) 9.2 H Eos % (Auto) Lymph # (Auto) 1.1 L [place] # (Auto) Eos # (Auto) Seg Neutrophils % 75.4 H Seg Neuts % (Manual) Lymphocytes % (Manual) Monocytes % (Manual) Basophils % (Manual) Seg Neutrophils # Seg Neutrophils # Man Lymphocytes # (Manual) Monocytes # (Manual) Eosinophils # (Manual) Basophils # (Manual) PT INR D-Dimer ABG pH POC ABG pCO2 POC ABG pO2 ABG pO2 ABG HCO3 ABG O2 Saturation ABG Base Excess ABG Hemoglobin ABG Oxyhemoglobin ABG Potassium ABG Glucose Oxyhemoglobin Carboxyhemoglobin Sodium Potassium Chloride 95.0 L Carbon Dioxide 34 H BUN Creatinine < 0.2 L Glucose 125 H POC Glucose 116 H Calcium Ferritin Total Bilirubin Alkaline Phosphatase Lactate Dehydrogenase Total Creatine Kinase CK-MB (CK-2) Rel Index Troponin T C-Reactive Protein Total Protein Albumin Prealbumin LDL Cholesterol Direct HDL Cholesterol Arterial Blood Glucose Arterial Blood Ionized Calcium Urine WBC (Auto) 04/22/20 04/22/20 04/22/20 00:01 07:45 07:45 WBC RBC Hgb 10.0 L Hct 30.7 L MCV 81 L MCH 27 L RDW 17.1 H Plt Count 490 H Lymph % (Auto) [place] % (Auto) Eos % (Auto) Lymph # (Auto) [place] # (Auto) Eos # (Auto) Seg Neutrophils % Seg Neuts % (Manual) 75.0 H Lymphocytes % (Manual) 11.0 L Monocytes % (Manual) 9.0 H Basophils % (Manual) Seg Neutrophils # Seg Neutrophils # Man Lymphocytes # (Manual) 0.8 L Monocytes # (Manual) Eosinophils # (Manual) Basophils # (Manual) PT INR D-Dimer ABG pH POC ABG pCO2 POC ABG pO2 ABG pO2 ABG HCO3 ABG O2 Saturation ABG Base Excess ABG Hemoglobin ABG Oxyhemoglobin ABG Potassium ABG Glucose Oxyhemoglobin Carboxyhemoglobin Sodium Potassium Chloride 96.3 L Carbon Dioxide 40 H BUN Creatinine < 0.2 L Glucose 109 H POC Glucose 110 H Calcium Ferritin Total Bilirubin Alkaline Phosphatase Lactate Dehydrogenase Total Creatine Kinase CK-MB (CK-2) Rel Index Troponin T C-Reactive Protein Total Protein Albumin Prealbumin LDL Cholesterol Direct HDL Cholesterol Arterial Blood Glucose Arterial Blood Ionized Calcium Urine WBC (Auto) 04/23/20 04/23/20 04/23/20 04:28 04:28 04:28 WBC RBC 3.64 L Hgb 9.7 L Hct 29.4 L MCV 81 L MCH 27 L RDW 17.2 H Plt Count 527 H Lymph % (Auto) [place] % (Auto) 8.9 H Eos % (Auto) Lymph # (Auto) [place] # (Auto) Eos # (Auto) Seg Neutrophils % Seg Neuts % (Manual) Lymphocytes % (Manual) Monocytes % (Manual) Basophils % (Manual) Seg Neutrophils # Seg Neutrophils # Man Lymphocytes # (Manual) Monocytes # (Manual) Eosinophils # (Manual) Basophils # (Manual) PT INR D-Dimer ABG pH POC ABG pCO2 POC ABG pO2 ABG pO2 ABG HCO3 ABG O2 Saturation ABG Base Excess ABG Hemoglobin ABG Oxyhemoglobin ABG Potassium ABG Glucose Oxyhemoglobin Carboxyhemoglobin Sodium Potassium Chloride 96.4 L Carbon Dioxide 32 H D BUN Creatinine < 0.2 L Glucose 134 H POC Glucose Calcium Ferritin Total Bilirubin Alkaline Phosphatase Lactate Dehydrogenase Total Creatine Kinase CK-MB (CK-2) Rel Index Troponin T 0.151 H* C-Reactive Protein Total Protein Albumin Prealbumin LDL Cholesterol Direct HDL Cholesterol 29 L Arterial Blood Glucose Arterial Blood Ionized Calcium Urine WBC (Auto) 04/23/20 04/23/20 04/24/20 06:03 23:41 05:28 WBC RBC 3.56 L Hgb 9.5 L Hct 28.9 L MCV 81 L MCH 27 L RDW 17.4 H Plt Count 462 H Lymph % (Auto) [place] % (Auto) Eos % (Auto) Lymph # (Auto) [place] # (Auto) Eos # (Auto) Seg Neutrophils % Seg Neuts % (Manual) 80.0 H Lymphocytes % (Manual) Monocytes % (Manual) Basophils % (Manual) Seg Neutrophils # Seg Neutrophils # Man Lymphocytes # (Manual) Monocytes # (Manual) Eosinophils # (Manual) Basophils # (Manual) PT INR D-Dimer ABG pH POC ABG pCO2 POC ABG pO2 ABG pO2 ABG HCO3 ABG O2 Saturation ABG Base Excess ABG Hemoglobin ABG Oxyhemoglobin ABG Potassium ABG Glucose Oxyhemoglobin Carboxyhemoglobin Sodium Potassium Chloride Carbon Dioxide BUN Creatinine Glucose POC Glucose 132 H 117 H Calcium Ferritin Total Bilirubin Alkaline Phosphatase Lactate Dehydrogenase Total Creatine Kinase CK-MB (CK-2) Rel Index Troponin T C-Reactive Protein Total Protein Albumin Prealbumin LDL Cholesterol Direct HDL Cholesterol Arterial Blood Glucose Arterial Blood Ionized Calcium Urine WBC (Auto) 04/24/20 04/24/20 04/24/20 05:28 05:28 05:33 WBC RBC Hgb Hct MCV MCH RDW Plt Count Lymph % (Auto) [place] % (Auto) Eos % (Auto) Lymph # (Auto) [place] # (Auto) Eos # (Auto) Seg Neutrophils % Seg Neuts % (Manual) Lymphocytes % (Manual) Monocytes % (Manual) Basophils % (Manual) Seg Neutrophils # Seg Neutrophils # Man Lymphocytes # (Manual) Monocytes # (Manual) Eosinophils # (Manual) Basophils # (Manual) PT INR D-Dimer ABG pH POC ABG pCO2 POC ABG pO2 ABG pO2 ABG HCO3 ABG O2 Saturation ABG Base Excess ABG Hemoglobin ABG Oxyhemoglobin ABG Potassium ABG Glucose Oxyhemoglobin Carboxyhemoglobin Sodium Potassium Chloride 96.1 L Carbon Dioxide 40 H D BUN Creatinine < 0.2 L Glucose 115 H POC Glucose 109 H Calcium Ferritin Total Bilirubin Alkaline Phosphatase Lactate Dehydrogenase Total Creatine Kinase CK-MB (CK-2) Rel Index Troponin T 0.181 H* C-Reactive Protein Total Protein Albumin Prealbumin LDL Cholesterol Direct HDL Cholesterol Arterial Blood Glucose Arterial Blood Ionized Calcium Urine WBC (Auto) 04/24/20 04/24/20 04/25/20 11:17 18:23 00:12 WBC RBC Hgb Hct MCV MCH RDW Plt Count Lymph % (Auto) [place] % (Auto) Eos % (Auto) Lymph # (Auto) [place] # (Auto) Eos # (Auto) Seg Neutrophils % Seg Neuts % (Manual) Lymphocytes % (Manual) Monocytes % (Manual) Basophils % (Manual) Seg Neutrophils # Seg Neutrophils # Man Lymphocytes # (Manual) Monocytes # (Manual) Eosinophils # (Manual) Basophils # (Manual) PT INR D-Dimer ABG pH POC ABG pCO2 POC ABG pO2 ABG pO2 ABG HCO3 ABG O2 Saturation ABG Base Excess ABG Hemoglobin ABG Oxyhemoglobin ABG Potassium ABG Glucose Oxyhemoglobin Carboxyhemoglobin Sodium Potassium Chloride Carbon Dioxide BUN Creatinine Glucose POC Glucose 117 H 109 H 113 H Calcium Ferritin Total Bilirubin Alkaline Phosphatase Lactate Dehydrogenase Total Creatine Kinase CK-MB (CK-2) Rel Index Troponin T C-Reactive Protein Total Protein Albumin Prealbumin LDL Cholesterol Direct HDL Cholesterol Arterial Blood Glucose Arterial Blood Ionized Calcium Urine WBC (Auto) 04/25/20 04/25/20 04/25/20 06:34 06:34 11:28 WBC 11.7 H RBC Hgb 10.0 L Hct 31.7 L MCV 82 L MCH 26 L RDW 17.5 H Plt Count 564 H Lymph % (Auto) [place] % (Auto) Eos % (Auto) Lymph # (Auto) [place] # (Auto) Eos # (Auto) Seg Neutrophils % Seg Neuts % (Manual) 78.0 H Lymphocytes % (Manual) 10.0 L Monocytes % (Manual) 9.0 H Basophils % (Manual) Seg Neutrophils # Seg Neutrophils # Man 9.1 H Lymphocytes # (Manual) Monocytes # (Manual) 1.1 H Eosinophils # (Manual) Basophils # (Manual) PT INR D-Dimer ABG pH POC ABG pCO2 POC ABG pO2 ABG pO2 ABG HCO3 ABG O2 Saturation ABG Base Excess ABG Hemoglobin ABG Oxyhemoglobin ABG Potassium ABG Glucose Oxyhemoglobin Carboxyhemoglobin Sodium Potassium Chloride Carbon Dioxide 39 H BUN Creatinine < 0.2 L Glucose 103 H POC Glucose 112 H Calcium Ferritin Total Bilirubin Alkaline Phosphatase Lactate Dehydrogenase Total Creatine Kinase CK-MB (CK-2) Rel Index Troponin T C-Reactive Protein Total Protein Albumin Prealbumin LDL Cholesterol Direct HDL Cholesterol Arterial Blood Glucose Arterial Blood Ionized Calcium Urine WBC (Auto) 04/27/20 04/27/20 04/27/20 11:48 17:08 23:31 WBC RBC Hgb Hct MCV MCH RDW Plt Count Lymph % (Auto) [place] % (Auto) Eos % (Auto) Lymph # (Auto) [place] # (Auto) Eos # (Auto) Seg Neutrophils % Seg Neuts % (Manual) Lymphocytes % (Manual) Monocytes % (Manual) Basophils % (Manual) Seg Neutrophils # Seg Neutrophils # Man Lymphocytes # (Manual) Monocytes # (Manual) Eosinophils # (Manual) Basophils # (Manual) PT INR D-Dimer ABG pH POC ABG pCO2 POC ABG pO2 ABG pO2 ABG HCO3 ABG O2 Saturation ABG Base Excess ABG Hemoglobin ABG Oxyhemoglobin ABG Potassium ABG Glucose Oxyhemoglobin Carboxyhemoglobin Sodium Potassium Chloride Carbon Dioxide BUN Creatinine Glucose POC Glucose 124 H 118 H 122 H Calcium Ferritin Total Bilirubin Alkaline Phosphatase Lactate Dehydrogenase Total Creatine Kinase CK-MB (CK-2) Rel Index Troponin T C-Reactive Protein Total Protein Albumin Prealbumin LDL Cholesterol Direct HDL Cholesterol Arterial Blood Glucose Arterial Blood Ionized Calcium Urine WBC (Auto) 04/28/20 04/29/20 04/29/20 05:42 00:14 05:30 WBC RBC Hgb Hct MCV MCH RDW Plt Count Lymph % (Auto) [place] % (Auto) Eos % (Auto) Lymph # (Auto) [place] # (Auto) Eos # (Auto) Seg Neutrophils % Seg Neuts % (Manual) Lymphocytes % (Manual) Monocytes % (Manual) Basophils % (Manual) Seg Neutrophils # Seg Neutrophils # Man Lymphocytes # (Manual) Monocytes # (Manual) Eosinophils # (Manual) Basophils # (Manual) PT INR D-Dimer ABG pH POC ABG pCO2 POC ABG pO2 ABG pO2 ABG HCO3 ABG O2 Saturation ABG Base Excess ABG Hemoglobin ABG Oxyhemoglobin ABG Potassium ABG Glucose Oxyhemoglobin Carboxyhemoglobin Sodium Potassium Chloride Carbon Dioxide BUN Creatinine Glucose POC Glucose 122 H 115 H 123 H Calcium Ferritin Total Bilirubin Alkaline Phosphatase Lactate Dehydrogenase Total Creatine Kinase CK-MB (CK-2) Rel Index Troponin T C-Reactive Protein Total Protein Albumin Prealbumin LDL Cholesterol Direct HDL Cholesterol Arterial Blood Glucose Arterial Blood Ionized Calcium Urine WBC (Auto) 04/30/20 05/01/20 05/01/20 00:29 05:39 12:30 WBC RBC Hgb Hct MCV MCH RDW Plt Count Lymph % (Auto) [place] % (Auto) Eos % (Auto) Lymph # (Auto) [place] # (Auto) Eos # (Auto) Seg Neutrophils % Seg Neuts % (Manual) Lymphocytes % (Manual) Monocytes % (Manual) Basophils % (Manual) Seg Neutrophils # Seg Neutrophils # Man Lymphocytes # (Manual) Monocytes # (Manual) Eosinophils # (Manual) Basophils # (Manual) PT INR D-Dimer ABG pH POC ABG pCO2 POC ABG pO2 ABG pO2 ABG HCO3 ABG O2 Saturation ABG Base Excess ABG Hemoglobin ABG Oxyhemoglobin ABG Potassium ABG Glucose Oxyhemoglobin Carboxyhemoglobin Sodium Potassium Chloride Carbon Dioxide BUN Creatinine Glucose POC Glucose 106 H 109 H 108 H Calcium Ferritin Total Bilirubin Alkaline Phosphatase Lactate Dehydrogenase Total Creatine Kinase CK-MB (CK-2) Rel Index Troponin T C-Reactive Protein Total Protein Albumin Prealbumin LDL Cholesterol Direct HDL Cholesterol Arterial Blood Glucose Arterial Blood Ionized Calcium Urine WBC (Auto) 05/01/20 05/03/20 05/03/20 23:35 05:09 11:36 WBC RBC Hgb Hct MCV MCH RDW Plt Count Lymph % (Auto) [place] % (Auto) Eos % (Auto) Lymph # (Auto) [place] # (Auto) Eos # (Auto) Seg Neutrophils % Seg Neuts % (Manual) Lymphocytes % (Manual) Monocytes % (Manual) Basophils % (Manual) Seg Neutrophils # Seg Neutrophils # Man Lymphocytes # (Manual) Monocytes # (Manual) Eosinophils # (Manual) Basophils # (Manual) PT INR D-Dimer ABG pH POC ABG pCO2 POC ABG pO2 ABG pO2 ABG HCO3 ABG O2 Saturation ABG Base Excess ABG Hemoglobin ABG Oxyhemoglobin ABG Potassium ABG Glucose Oxyhemoglobin Carboxyhemoglobin Sodium Potassium Chloride Carbon Dioxide BUN Creatinine Glucose POC Glucose 116 H 117 H 116 H Calcium Ferritin Total Bilirubin Alkaline Phosphatase Lactate Dehydrogenase Total Creatine Kinase CK-MB (CK-2) Rel Index Troponin T C-Reactive Protein Total Protein Albumin Prealbumin LDL Cholesterol Direct HDL Cholesterol Arterial Blood Glucose Arterial Blood Ionized Calcium Urine WBC (Auto) 05/03/20 05/03/20 05/03/20 14:06 14:06 23:39 WBC 12.5 H RBC Hgb 10.0 L Hct 31.2 L MCV 80 L MCH 26 L RDW 17.6 H Plt Count 488 H Lymph % (Auto) [place] % (Auto) Eos % (Auto) Lymph # (Auto) [place] # (Auto) Eos # (Auto) Seg Neutrophils % Seg Neuts % (Manual) Lymphocytes % (Manual) Monocytes % (Manual) Basophils % (Manual) Seg Neutrophils # Seg Neutrophils # Man Lymphocytes # (Manual) Monocytes # (Manual) Eosinophils # (Manual) Basophils # (Manual) PT INR D-Dimer ABG pH POC ABG pCO2 POC ABG pO2 ABG pO2 ABG HCO3 ABG O2 Saturation ABG Base Excess ABG Hemoglobin ABG Oxyhemoglobin ABG Potassium ABG Glucose Oxyhemoglobin Carboxyhemoglobin Sodium Potassium Chloride 95.4 L Carbon Dioxide 40 H BUN Creatinine < 0.2 L Glucose 121 H POC Glucose 107 H Calcium Ferritin Total Bilirubin Alkaline Phosphatase Lactate Dehydrogenase Total Creatine Kinase CK-MB (CK-2) Rel Index Troponin T C-Reactive Protein Total Protein Albumin Prealbumin LDL Cholesterol Direct HDL Cholesterol Arterial Blood Glucose Arterial Blood Ionized Calcium Urine WBC (Auto) 05/04/20 05/04/20 05/04/20 11:31 16:57 23:18 WBC RBC Hgb Hct MCV MCH RDW Plt Count Lymph % (Auto) [place] % (Auto) Eos % (Auto) Lymph # (Auto) [place] # (Auto) Eos # (Auto) Seg Neutrophils % Seg Neuts % (Manual) Lymphocytes % (Manual) Monocytes % (Manual) Basophils % (Manual) Seg Neutrophils # Seg Neutrophils # Man Lymphocytes # (Manual) Monocytes # (Manual) Eosinophils # (Manual) Basophils # (Manual) PT INR D-Dimer ABG pH POC ABG pCO2 POC ABG pO2 ABG pO2 ABG HCO3 ABG O2 Saturation ABG Base Excess ABG Hemoglobin ABG Oxyhemoglobin ABG Potassium ABG Glucose Oxyhemoglobin Carboxyhemoglobin Sodium Potassium Chloride Carbon Dioxide BUN Creatinine Glucose POC Glucose 113 H 126 H 126 H Calcium Ferritin Total Bilirubin Alkaline Phosphatase Lactate Dehydrogenase Total Creatine Kinase CK-MB (CK-2) Rel Index Troponin T C-Reactive Protein Total Protein Albumin Prealbumin LDL Cholesterol Direct HDL Cholesterol Arterial Blood Glucose Arterial Blood Ionized Calcium Urine WBC (Auto) 05/05/20 05/05/20 05/05/20 05:32 11:11 23:57 WBC RBC Hgb Hct MCV MCH RDW Plt Count Lymph % (Auto) [place] % (Auto) Eos % (Auto) Lymph # (Auto) [place] # (Auto) Eos # (Auto) Seg Neutrophils % Seg Neuts % (Manual) Lymphocytes % (Manual) Monocytes % (Manual) Basophils % (Manual) Seg Neutrophils # Seg Neutrophils # Man Lymphocytes # (Manual) Monocytes # (Manual) Eosinophils # (Manual) Basophils # (Manual) PT INR D-Dimer ABG pH POC ABG pCO2 POC ABG pO2 ABG pO2 ABG HCO3 ABG O2 Saturation ABG Base Excess ABG Hemoglobin ABG Oxyhemoglobin ABG Potassium ABG Glucose Oxyhemoglobin Carboxyhemoglobin Sodium Potassium Chloride Carbon Dioxide BUN Creatinine Glucose POC Glucose 109 H 124 H 119 H Calcium Ferritin Total Bilirubin Alkaline Phosphatase Lactate Dehydrogenase Total Creatine Kinase CK-MB (CK-2) Rel Index Troponin T C-Reactive Protein Total Protein Albumin Prealbumin LDL Cholesterol Direct HDL Cholesterol Arterial Blood Glucose Arterial Blood Ionized Calcium Urine WBC (Auto) 05/06/20 05/06/20 05/07/20 05:34 23:08 04:43 WBC RBC Hgb 10.1 L Hct 31.9 L MCV 81 L MCH 25 L RDW 17.6 H Plt Count 506 H Lymph % (Auto) [place] % (Auto) 8.6 H Eos % (Auto) Lymph # (Auto) [place] # (Auto) 0.9 H Eos # (Auto) Seg Neutrophils % Seg Neuts % (Manual) Lymphocytes % (Manual) Monocytes % (Manual) Basophils % (Manual) Seg Neutrophils # Seg Neutrophils # Man Lymphocytes # (Manual) Monocytes # (Manual) Eosinophils # (Manual) Basophils # (Manual) PT INR D-Dimer ABG pH POC ABG pCO2 POC ABG pO2 ABG pO2 ABG HCO3 ABG O2 Saturation ABG Base Excess ABG Hemoglobin ABG Oxyhemoglobin ABG Potassium ABG Glucose Oxyhemoglobin Carboxyhemoglobin Sodium Potassium Chloride Carbon Dioxide BUN Creatinine Glucose POC Glucose 121 H 107 H Calcium Ferritin Total Bilirubin Alkaline Phosphatase Lactate Dehydrogenase Total Creatine Kinase CK-MB (CK-2) Rel Index Troponin T C-Reactive Protein Total Protein Albumin Prealbumin LDL Cholesterol Direct HDL Cholesterol Arterial Blood Glucose Arterial Blood Ionized Calcium Urine WBC (Auto) 05/07/20 05/07/20 05/07/20 06:18 17:13 23:29 WBC RBC Hgb Hct MCV MCH RDW Plt Count Lymph % (Auto) [place] % (Auto) Eos % (Auto) Lymph # (Auto) [place] # (Auto) Eos # (Auto) Seg Neutrophils % Seg Neuts % (Manual) Lymphocytes % (Manual) Monocytes % (Manual) Basophils % (Manual) Seg Neutrophils # Seg Neutrophils # Man Lymphocytes # (Manual) Monocytes # (Manual) Eosinophils # (Manual) Basophils # (Manual) PT INR D-Dimer ABG pH POC ABG pCO2 POC ABG pO2 ABG pO2 ABG HCO3 ABG O2 Saturation ABG Base Excess ABG Hemoglobin ABG Oxyhemoglobin ABG Potassium ABG Glucose Oxyhemoglobin Carboxyhemoglobin Sodium Potassium Chloride Carbon Dioxide BUN Creatinine Glucose POC Glucose 121 H 122 H 114 H Calcium Ferritin Total Bilirubin Alkaline Phosphatase Lactate Dehydrogenase Total Creatine Kinase CK-MB (CK-2) Rel Index Troponin T C-Reactive Protein Total Protein Albumin Prealbumin LDL Cholesterol Direct HDL Cholesterol Arterial Blood Glucose Arterial Blood Ionized Calcium Urine WBC (Auto) 05/08/20 05/08/20 05/08/20 05:20 11:57 23:42 WBC RBC Hgb Hct MCV MCH RDW Plt Count Lymph % (Auto) [place] % (Auto) Eos % (Auto) Lymph # (Auto) [place] # (Auto) Eos # (Auto) Seg Neutrophils % Seg Neuts % (Manual) Lymphocytes % (Manual) Monocytes % (Manual) Basophils % (Manual) Seg Neutrophils # Seg Neutrophils # Man Lymphocytes # (Manual) Monocytes # (Manual) Eosinophils # (Manual) Basophils # (Manual) PT INR D-Dimer ABG pH POC ABG pCO2 POC ABG pO2 ABG pO2 ABG HCO3 ABG O2 Saturation ABG Base Excess ABG Hemoglobin ABG Oxyhemoglobin ABG Potassium ABG Glucose Oxyhemoglobin Carboxyhemoglobin Sodium Potassium Chloride Carbon Dioxide BUN Creatinine Glucose POC Glucose 121 H 113 H 135 H Calcium Ferritin Total Bilirubin Alkaline Phosphatase Lactate Dehydrogenase Total Creatine Kinase CK-MB (CK-2) Rel Index Troponin T C-Reactive Protein Total Protein Albumin Prealbumin LDL Cholesterol Direct HDL Cholesterol Arterial Blood Glucose Arterial Blood Ionized Calcium Urine WBC (Auto) 05/09/20 05/09/20 05/09/20 05:31 11:11 16:06 WBC RBC Hgb Hct MCV MCH RDW Plt Count Lymph % (Auto) [place] % (Auto) Eos % (Auto) Lymph # (Auto) [place] # (Auto) Eos # (Auto) Seg Neutrophils % Seg Neuts % (Manual) Lymphocytes % (Manual) Monocytes % (Manual) Basophils % (Manual) Seg Neutrophils # Seg Neutrophils # Man Lymphocytes # (Manual) Monocytes # (Manual) Eosinophils # (Manual) Basophils # (Manual) PT INR D-Dimer ABG pH POC ABG pCO2 POC ABG pO2 ABG pO2 ABG HCO3 ABG O2 Saturation ABG Base Excess ABG Hemoglobin ABG Oxyhemoglobin ABG Potassium ABG Glucose Oxyhemoglobin Carboxyhemoglobin Sodium 136 L Potassium Chloride 97.0 L Carbon Dioxide 34 H BUN Creatinine < 0.2 L Glucose 107 H POC Glucose 66 L 127 H Calcium Ferritin Total Bilirubin Alkaline Phosphatase Lactate Dehydrogenase Total Creatine Kinase CK-MB (CK-2) Rel Index Troponin T C-Reactive Protein Total Protein Albumin Prealbumin LDL Cholesterol Direct HDL Cholesterol Arterial Blood Glucose Arterial Blood Ionized Calcium Urine WBC (Auto) 05/09/20 05/10/20 05/10/20 23:19 04:59 11:28 WBC RBC Hgb Hct MCV MCH RDW Plt Count Lymph % (Auto) [place] % (Auto) Eos % (Auto) Lymph # (Auto) [place] # (Auto) Eos # (Auto) Seg Neutrophils % Seg Neuts % (Manual) Lymphocytes % (Manual) Monocytes % (Manual) Basophils % (Manual) Seg Neutrophils # Seg Neutrophils # Man Lymphocytes # (Manual) Monocytes # (Manual) Eosinophils # (Manual) Basophils # (Manual) PT INR D-Dimer ABG pH POC ABG pCO2 POC ABG pO2 ABG pO2 ABG HCO3 ABG O2 Saturation ABG Base Excess ABG Hemoglobin ABG Oxyhemoglobin ABG Potassium ABG Glucose Oxyhemoglobin Carboxyhemoglobin Sodium Potassium Chloride Carbon Dioxide BUN Creatinine Glucose POC Glucose 108 H 126 H 124 H Calcium Ferritin Total Bilirubin Alkaline Phosphatase Lactate Dehydrogenase Total Creatine Kinase CK-MB (CK-2) Rel Index Troponin T C-Reactive Protein Total Protein Albumin Prealbumin LDL Cholesterol Direct HDL Cholesterol Arterial Blood Glucose Arterial Blood Ionized Calcium Urine WBC (Auto) 05/10/20 05/11/20 05/11/20 23:56 06:13 11:44 WBC RBC Hgb Hct MCV MCH RDW Plt Count Lymph % (Auto) [place] % (Auto) Eos % (Auto) Lymph # (Auto) [place] # (Auto) Eos # (Auto) Seg Neutrophils % Seg Neuts % (Manual) Lymphocytes % (Manual) Monocytes % (Manual) Basophils % (Manual) Seg Neutrophils # Seg Neutrophils # Man Lymphocytes # (Manual) Monocytes # (Manual) Eosinophils # (Manual) Basophils # (Manual) PT INR D-Dimer ABG pH POC ABG pCO2 POC ABG pO2 ABG pO2 ABG HCO3 ABG O2 Saturation ABG Base Excess ABG Hemoglobin ABG Oxyhemoglobin ABG Potassium ABG Glucose Oxyhemoglobin Carboxyhemoglobin Sodium Potassium Chloride Carbon Dioxide BUN Creatinine Glucose POC Glucose 113 H 124 H 125 H Calcium Ferritin Total Bilirubin Alkaline Phosphatase Lactate Dehydrogenase Total Creatine Kinase CK-MB (CK-2) Rel Index Troponin T C-Reactive Protein Total Protein Albumin Prealbumin LDL Cholesterol Direct HDL Cholesterol Arterial Blood Glucose Arterial Blood Ionized Calcium Urine WBC (Auto) 05/12/20 05/12/20 05/12/20 06:04 12:17 17:23 WBC RBC Hgb Hct MCV MCH RDW Plt Count Lymph % (Auto) [place] % (Auto) Eos % (Auto) Lymph # (Auto) [place] # (Auto) Eos # (Auto) Seg Neutrophils % Seg Neuts % (Manual) Lymphocytes % (Manual) Monocytes % (Manual) Basophils % (Manual) Seg Neutrophils # Seg Neutrophils # Man Lymphocytes # (Manual) Monocytes # (Manual) Eosinophils # (Manual) Basophils # (Manual) PT INR D-Dimer ABG pH POC ABG pCO2 POC ABG pO2 ABG pO2 ABG HCO3 ABG O2 Saturation ABG Base Excess ABG Hemoglobin ABG Oxyhemoglobin ABG Potassium ABG Glucose Oxyhemoglobin Carboxyhemoglobin Sodium Potassium Chloride Carbon Dioxide BUN Creatinine Glucose POC Glucose 135 H 136 H 133 H Calcium Ferritin Total Bilirubin Alkaline Phosphatase Lactate Dehydrogenase Total Creatine Kinase CK-MB (CK-2) Rel Index Troponin T C-Reactive Protein Total Protein Albumin Prealbumin LDL Cholesterol Direct HDL Cholesterol Arterial Blood Glucose Arterial Blood Ionized Calcium Urine WBC (Auto) 05/12/20 05/13/20 05/13/20 23:34 05:36 11:25 WBC RBC Hgb Hct MCV MCH RDW Plt Count Lymph % (Auto) [place] % (Auto) Eos % (Auto) Lymph # (Auto) [place] # (Auto) Eos # (Auto) Seg Neutrophils % Seg Neuts % (Manual) Lymphocytes % (Manual) Monocytes % (Manual) Basophils % (Manual) Seg Neutrophils # Seg Neutrophils # Man Lymphocytes # (Manual) Monocytes # (Manual) Eosinophils # (Manual) Basophils # (Manual) PT INR D-Dimer ABG pH POC ABG pCO2 POC ABG pO2 ABG pO2 ABG HCO3 ABG O2 Saturation ABG Base Excess ABG Hemoglobin ABG Oxyhemoglobin ABG Potassium ABG Glucose Oxyhemoglobin Carboxyhemoglobin Sodium Potassium Chloride Carbon Dioxide BUN Creatinine Glucose POC Glucose 141 H 131 H 148 H Calcium Ferritin Total Bilirubin Alkaline Phosphatase Lactate Dehydrogenase Total Creatine Kinase CK-MB (CK-2) Rel Index Troponin T C-Reactive Protein Total Protein Albumin Prealbumin LDL Cholesterol Direct HDL Cholesterol Arterial Blood Glucose Arterial Blood Ionized Calcium Urine WBC (Auto) 05/13/20 05/14/20 05/14/20 16:40 00:11 05:03 WBC RBC Hgb Hct MCV MCH RDW Plt Count Lymph % (Auto) [place] % (Auto) Eos % (Auto) Lymph # (Auto) [place] # (Auto) Eos # (Auto) Seg Neutrophils % Seg Neuts % (Manual) Lymphocytes % (Manual) Monocytes % (Manual) Basophils % (Manual) Seg Neutrophils # Seg Neutrophils # Man Lymphocytes # (Manual) Monocytes # (Manual) Eosinophils # (Manual) Basophils # (Manual) PT INR D-Dimer ABG pH POC ABG pCO2 POC ABG pO2 ABG pO2 ABG HCO3 ABG O2 Saturation ABG Base Excess ABG Hemoglobin ABG Oxyhemoglobin ABG Potassium ABG Glucose Oxyhemoglobin Carboxyhemoglobin Sodium Potassium Chloride Carbon Dioxide BUN Creatinine Glucose POC Glucose 118 H 128 H 129 H Calcium Ferritin Total Bilirubin Alkaline Phosphatase Lactate Dehydrogenase Total Creatine Kinase CK-MB (CK-2) Rel Index Troponin T C-Reactive Protein Total Protein Albumin Prealbumin LDL Cholesterol Direct HDL Cholesterol Arterial Blood Glucose Arterial Blood Ionized Calcium Urine WBC (Auto) 05/14/20 05/15/20 05/16/20 11:38 23:46 05:20 WBC RBC Hgb Hct MCV MCH RDW Plt Count Lymph % (Auto) [place] % (Auto) Eos % (Auto) Lymph # (Auto) [place] # (Auto) Eos # (Auto) Seg Neutrophils % Seg Neuts % (Manual) Lymphocytes % (Manual) Monocytes % (Manual) Basophils % (Manual) Seg Neutrophils # Seg Neutrophils # Man Lymphocytes # (Manual) Monocytes # (Manual) Eosinophils # (Manual) Basophils # (Manual) PT INR D-Dimer ABG pH POC ABG pCO2 POC ABG pO2 ABG pO2 ABG HCO3 ABG O2 Saturation ABG Base Excess ABG Hemoglobin ABG Oxyhemoglobin ABG Potassium ABG Glucose Oxyhemoglobin Carboxyhemoglobin Sodium Potassium Chloride Carbon Dioxide BUN Creatinine Glucose POC Glucose 134 H 107 H 122 H Calcium Ferritin Total Bilirubin Alkaline Phosphatase Lactate Dehydrogenase Total Creatine Kinase CK-MB (CK-2) Rel Index Troponin T C-Reactive Protein Total Protein Albumin Prealbumin LDL Cholesterol Direct HDL Cholesterol Arterial Blood Glucose Arterial Blood Ionized Calcium Urine WBC (Auto) 05/16/20 05/16/20 05/18/20 11:57 23:51 11:18 WBC RBC Hgb Hct MCV MCH RDW Plt Count Lymph % (Auto) [place] % (Auto) Eos % (Auto) Lymph # (Auto) [place] # (Auto) Eos # (Auto) Seg Neutrophils % Seg Neuts % (Manual) Lymphocytes % (Manual) Monocytes % (Manual) Basophils % (Manual) Seg Neutrophils # Seg Neutrophils # Man Lymphocytes # (Manual) Monocytes # (Manual) Eosinophils # (Manual) Basophils # (Manual) PT INR D-Dimer ABG pH POC ABG pCO2 POC ABG pO2 ABG pO2 ABG HCO3 ABG O2 Saturation ABG Base Excess ABG Hemoglobin ABG Oxyhemoglobin ABG Potassium ABG Glucose Oxyhemoglobin Carboxyhemoglobin Sodium Potassium Chloride Carbon Dioxide BUN Creatinine Glucose POC Glucose 108 H 111 H 115 H Calcium Ferritin Total Bilirubin Alkaline Phosphatase Lactate Dehydrogenase Total Creatine Kinase CK-MB (CK-2) Rel Index Troponin T C-Reactive Protein Total Protein Albumin Prealbumin LDL Cholesterol Direct HDL Cholesterol Arterial Blood Glucose Arterial Blood Ionized Calcium Urine WBC (Auto) 05/18/20 05/18/20 05/19/20 16:18 23:38 05:07 WBC RBC Hgb Hct MCV MCH RDW Plt Count Lymph % (Auto) [place] % (Auto) Eos % (Auto) Lymph # (Auto) [place] # (Auto) Eos # (Auto) Seg Neutrophils % Seg Neuts % (Manual) Lymphocytes % (Manual) Monocytes % (Manual) Basophils % (Manual) Seg Neutrophils # Seg Neutrophils # Man Lymphocytes # (Manual) Monocytes # (Manual) Eosinophils # (Manual) Basophils # (Manual) PT INR D-Dimer ABG pH POC ABG pCO2 POC ABG pO2 ABG pO2 ABG HCO3 ABG O2 Saturation ABG Base Excess ABG Hemoglobin ABG Oxyhemoglobin ABG Potassium ABG Glucose Oxyhemoglobin Carboxyhemoglobin Sodium Potassium Chloride Carbon Dioxide BUN Creatinine Glucose POC Glucose 110 H 128 H 121 H Calcium Ferritin Total Bilirubin Alkaline Phosphatase Lactate Dehydrogenase Total Creatine Kinase CK-MB (CK-2) Rel Index Troponin T C-Reactive Protein Total Protein Albumin Prealbumin LDL Cholesterol Direct HDL Cholesterol Arterial Blood Glucose Arterial Blood Ionized Calcium Urine WBC (Auto) 05/19/20 05/19/20 05/19/20 11:36 16:49 23:17 WBC RBC Hgb Hct MCV MCH RDW Plt Count Lymph % (Auto) [place] % (Auto) Eos % (Auto) Lymph # (Auto) [place] # (Auto) Eos # (Auto) Seg Neutrophils % Seg Neuts % (Manual) Lymphocytes % (Manual) Monocytes % (Manual) Basophils % (Manual) Seg Neutrophils # Seg Neutrophils # Man Lymphocytes # (Manual) Monocytes # (Manual) Eosinophils # (Manual) Basophils # (Manual) PT INR D-Dimer ABG pH POC ABG pCO2 POC ABG pO2 ABG pO2 ABG HCO3 ABG O2 Saturation ABG Base Excess ABG Hemoglobin ABG Oxyhemoglobin ABG Potassium ABG Glucose Oxyhemoglobin Carboxyhemoglobin Sodium Potassium Chloride Carbon Dioxide BUN Creatinine Glucose POC Glucose 120 H 110 H 122 H Calcium Ferritin Total Bilirubin Alkaline Phosphatase Lactate Dehydrogenase Total Creatine Kinase CK-MB (CK-2) Rel Index Troponin T C-Reactive Protein Total Protein Albumin Prealbumin LDL Cholesterol Direct HDL Cholesterol Arterial Blood Glucose Arterial Blood Ionized Calcium Urine WBC (Auto) 05/20/20 05/20/20 05/21/20 05:17 23:55 04:18 WBC RBC Hgb 11.2 L Hct 35.4 L MCV 81 L MCH 25 L RDW 18.2 H Plt Count 458 H Lymph % (Auto) [place] % (Auto) 8.8 H Eos % (Auto) 7.2 H Lymph # (Auto) [place] # (Auto) Eos # (Auto) 0.6 H Seg Neutrophils % Seg Neuts % (Manual) Lymphocytes % (Manual) Monocytes % (Manual) Basophils % (Manual) Seg Neutrophils # Seg Neutrophils # Man Lymphocytes # (Manual) Monocytes # (Manual) Eosinophils # (Manual) Basophils # (Manual) PT INR D-Dimer ABG pH POC ABG pCO2 POC ABG pO2 ABG pO2 ABG HCO3 ABG O2 Saturation ABG Base Excess ABG Hemoglobin ABG Oxyhemoglobin ABG Potassium ABG Glucose Oxyhemoglobin Carboxyhemoglobin Sodium Potassium Chloride Carbon Dioxide BUN Creatinine Glucose POC Glucose 133 H 128 H Calcium Ferritin Total Bilirubin Alkaline Phosphatase Lactate Dehydrogenase Total Creatine Kinase CK-MB (CK-2) Rel Index Troponin T C-Reactive Protein Total Protein Albumin Prealbumin LDL Cholesterol Direct HDL Cholesterol Arterial Blood Glucose Arterial Blood Ionized Calcium Urine WBC (Auto) 05/21/20 05/21/20 05/21/20 04:18 05:02 23:53 WBC RBC Hgb Hct MCV MCH RDW Plt Count Lymph % (Auto) [place] % (Auto) Eos % (Auto) Lymph # (Auto) [place] # (Auto) Eos # (Auto) Seg Neutrophils % Seg Neuts % (Manual) Lymphocytes % (Manual) Monocytes % (Manual) Basophils % (Manual) Seg Neutrophils # Seg Neutrophils # Man Lymphocytes # (Manual) Monocytes # (Manual) Eosinophils # (Manual) Basophils # (Manual) PT INR D-Dimer ABG pH POC ABG pCO2 POC ABG pO2 ABG pO2 ABG HCO3 ABG O2 Saturation ABG Base Excess ABG Hemoglobin ABG Oxyhemoglobin ABG Potassium ABG Glucose Oxyhemoglobin Carboxyhemoglobin Sodium Potassium Chloride 97.2 L Carbon Dioxide 35 H BUN Creatinine < 0.2 L Glucose 128 H POC Glucose 125 H 114 H Calcium Ferritin Total Bilirubin Alkaline Phosphatase Lactate Dehydrogenase Total Creatine Kinase CK-MB (CK-2) Rel Index Troponin T C-Reactive Protein Total Protein Albumin Prealbumin LDL Cholesterol Direct HDL Cholesterol Arterial Blood Glucose Arterial Blood Ionized Calcium Urine WBC (Auto) 05/22/20 05/22/20 05/23/20 05:21 11:35 00:06 WBC RBC Hgb Hct MCV MCH RDW Plt Count Lymph % (Auto) [place] % (Auto) Eos % (Auto) Lymph # (Auto) [place] # (Auto) Eos # (Auto) Seg Neutrophils % Seg Neuts % (Manual) Lymphocytes % (Manual) Monocytes % (Manual) Basophils % (Manual) Seg Neutrophils # Seg Neutrophils # Man Lymphocytes # (Manual) Monocytes # (Manual) Eosinophils # (Manual) Basophils # (Manual) PT INR D-Dimer ABG pH POC ABG pCO2 POC ABG pO2 ABG pO2 ABG HCO3 ABG O2 Saturation ABG Base Excess ABG Hemoglobin ABG Oxyhemoglobin ABG Potassium ABG Glucose Oxyhemoglobin Carboxyhemoglobin Sodium Potassium Chloride Carbon Dioxide BUN Creatinine Glucose POC Glucose 127 H 114 H 115 H Calcium Ferritin Total Bilirubin Alkaline Phosphatase Lactate Dehydrogenase Total Creatine Kinase CK-MB (CK-2) Rel Index Troponin T C-Reactive Protein Total Protein Albumin Prealbumin LDL Cholesterol Direct HDL Cholesterol Arterial Blood Glucose Arterial Blood Ionized Calcium Urine WBC (Auto) 05/23/20 05/23/20 05/23/20 05:44 12:07 17:59 WBC RBC Hgb Hct MCV MCH RDW Plt Count Lymph % (Auto) [place] % (Auto) Eos % (Auto) Lymph # (Auto) [place] # (Auto) Eos # (Auto) Seg Neutrophils % Seg Neuts % (Manual) Lymphocytes % (Manual) Monocytes % (Manual) Basophils % (Manual) Seg Neutrophils # Seg Neutrophils # Man Lymphocytes # (Manual) Monocytes # (Manual) Eosinophils # (Manual) Basophils # (Manual) PT INR D-Dimer ABG pH POC ABG pCO2 POC ABG pO2 ABG pO2 ABG HCO3 ABG O2 Saturation ABG Base Excess ABG Hemoglobin ABG Oxyhemoglobin ABG Potassium ABG Glucose Oxyhemoglobin Carboxyhemoglobin Sodium Potassium Chloride Carbon Dioxide BUN Creatinine Glucose POC Glucose 110 H 128 H 125 H Calcium Ferritin Total Bilirubin Alkaline Phosphatase Lactate Dehydrogenase Total Creatine Kinase CK-MB (CK-2) Rel Index Troponin T C-Reactive Protein Total Protein Albumin Prealbumin LDL Cholesterol Direct HDL Cholesterol Arterial Blood Glucose Arterial Blood Ionized Calcium Urine WBC (Auto) 05/24/20 05/24/20 05/25/20 05:09 23:05 05:33 WBC RBC Hgb Hct MCV MCH RDW Plt Count Lymph % (Auto) [place] % (Auto) Eos % (Auto) Lymph # (Auto) [place] # (Auto) Eos # (Auto) Seg Neutrophils % Seg Neuts % (Manual) Lymphocytes % (Manual) Monocytes % (Manual) Basophils % (Manual) Seg Neutrophils # Seg Neutrophils # Man Lymphocytes # (Manual) Monocytes # (Manual) Eosinophils # (Manual) Basophils # (Manual) PT INR D-Dimer ABG pH POC ABG pCO2 POC ABG pO2 ABG pO2 ABG HCO3 ABG O2 Saturation ABG Base Excess ABG Hemoglobin ABG Oxyhemoglobin ABG Potassium ABG Glucose Oxyhemoglobin Carboxyhemoglobin Sodium Potassium Chloride Carbon Dioxide BUN Creatinine Glucose POC Glucose 115 H 113 H 118 H Calcium Ferritin Total Bilirubin Alkaline Phosphatase Lactate Dehydrogenase Total Creatine Kinase CK-MB (CK-2) Rel Index Troponin T C-Reactive Protein Total Protein Albumin Prealbumin LDL Cholesterol Direct HDL Cholesterol Arterial Blood Glucose Arterial Blood Ionized Calcium Urine WBC (Auto) Allied health notes reviewed: nursing
[2020-05-25] MEDS: ENOXAPARIN 40 MG/0.4 ML INJ SUB-Q SCH (21:31)
[2020-05-25] MEDS: ZOLPIDEM 5 MG TAB PO PRN (21:31)
[2020-05-25] MEDS: SENNOSIDES 8.6 MG TAB PO SCH (21:31)
[2020-05-26 06:14] LABS: Blood Urea Nitrogen 15 mg/dL (9-20); Calcium 9.3 mg/dL (8.4-10.2); Hemolysis Index 8
[2020-05-26 06:18] LABS: BUN/Creatinine Ratio 75
[2020-05-26 06:33] LABS: Basophils # (Auto) 0.1 K/mm3 (0.0-0.1); Basophils % (Auto) 0.8 % (0.0-1.8); Eosinophils # (Auto) 0.4 K/mm3 (0.0-0.4); Eosinophils % (Auto) 3.1 % (0.0-4.3); Hematocrit 32.8 % (35.5-45.6); Hemoglobin 10.4 gm/dl (11.8-15.2); Lymphocytes # (Auto) 1.6 K/mm3 (1.2-5.4); Lymphocytes % (Auto) 13.7 % (13.4-35.0); Mean Corpuscular HGB Conc 32 % (32-34); Mean Corpuscular Volume 79 fl (84-94); Monocytes # (Auto) 0.9 K/mm3 (0.0-0.8); Monocytes % (Auto) 7.5 % (0.0-7.3); Platelet Count 394 K/mm3 (140-440); Red Blood Count 4.16 M/mm3 (3.65-5.03); Red Cell Distribution Width 18.2 % (13.2-15.2)
--- NOTE | 2020-05-26 08:26 | Progress Note ---
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 Respiratory Failure s/p trach Severe Sepsis with Shock Bilateral Pneumonia (Possible aspiration) History of ALS on Trilogy Oropharyngeal Dysphagia s/p PEG Acute toxic metabolic encephalopathy-resolved Elevated D-dimer Elevated troponin possibly type 2 ischemia Leukocytsois Continue to trend WCC and temperature curve Continue Ambien for sleep at night Continue all supportive care Discharge planning is ongoing- discussed with case management, David will be in the hospital tomorrow to trial the home ventilator. Significant other has done training - continue daytime PSV as tolerated -He is not tolerating ATP trials and is vent dependant. - ABG, CXR as clinically indicated - continue Robinul & scopolamine for secretion control - Keep K at 4, Mg at 2 and Phos at 2.5 to optimize respiratory muscle function - wound care per RN/WCN, off loading, frequent turning, mobility per facility protocol - wean supplemental oxygen for target O2 sats > 92% - VAP bundle addressed, aspiration precautions, HOB >40 - continue lung protective strategies - continue bronchodilators with pulmonary hygiene per RT - s/p empiric anti-infectives per ID recs (Rocephin and Zithromax) - enteral nutrition at goal rate as tolerated - accuchecks with glycemic control per SSI (While critically ill target blood glucose of 140-180 mg/dL; avoid hypoglycemia) - continue to avoid nephrotoxins, renal dose all medications - continue to avoid benzodiazepines, reduce the possibility of delirium - continue prn analgesia per CPOT score -continue to maintain of sleep-wake cycle -Continue stress ulcer and VTE prophylaxis (Famotidine and Enoxaparin) - continue to monitor hemodynamics closely - continue other care per attending / other consultants CONDITION: FAIR PROGNOSIS: FAIR CODE STATUS: FULL CODE Subjective Date of service: 05/26/20 Principal diagnosis: Ac on Ch Hypercapnic & hypoxemic Resp Failure; Severe Sepsis; Jamar PNA; ALS Interval history: Patient is seen today for: Acute on Chronic Hypercapnic & hypoxemic Respiratory Failure; Severe Sepsis with Shock; Bilateral Pneumonia (Possible aspiration); History of ALS on Trilogy; Acute toxic metabolic encephalopathy Seen and examined at bedside; 24hour events reviewed; nursing and respiratory care staff consulted; no adverse overnight events reported to me; resting in bed; remains on MVS; s/p trach and PEG Tolerating tube feedings. Tolerating PSV at the bedside, full support at night No fevers,no vomiting. Slept well last night. Some air leak around the trach, inflated with 2cc of air with good results Phonates around the trach- wants to go home No new issues Objective Vital Signs - 12hr 05/25/20 05/25/20 05/25/20 20:47 21:01 22:00 Temperature Pulse Rate 109 H 105 H 100 H Respiratory 21 24 Rate Blood Pressure 134/92 134/101 133/94 O2 Sat by Pulse 93 96 96 Oximetry O2 Sat by Pulse Oximetry [ Assessment] 05/25/20 05/25/20 05/26/20 23:00 23:45 00:00 Temperature 98.3 F Pulse Rate 93 H 94 H 100 H Respiratory 13 21 22 Rate Blood Pressure 118/65 118/65 106/70 O2 Sat by Pulse 100 98 98 Oximetry O2 Sat by Pulse Oximetry [ Assessment] 05/26/20 05/26/20 05/26/20 00:05 01:00 02:01 Temperature Pulse Rate 102 H 97 H 95 H Respiratory 22 21 Rate Blood Pressure 106/70 118/67 120/72 O2 Sat by Pulse 98 99 99 Oximetry O2 Sat by Pulse Oximetry [ Assessment] 05/26/20 05/26/20 05/26/20 03:00 04:00 04:39 Temperature 98.2 F Pulse Rate 103 H 106 H 107 H Respiratory 23 24 Rate Blood Pressure 120/72 117/80 117/80 O2 Sat by Pulse 98 98 Oximetry O2 Sat by Pulse Oximetry [ Assessment] 05/26/20 05/26/20 05/26/20 05:00 06:00 07:01 Temperature Pulse Rate 107 H 107 H 105 H Respiratory 23 22 22 Rate Blood Pressure 116/77 110/71 123/67 O2 Sat by Pulse 98 99 97 Oximetry O2 Sat by Pulse Oximetry [ Assessment] 05/26/20 08:00 Temperature Pulse Rate 113 H Respiratory Rate Blood Pressure 119/65 O2 Sat by Pulse 97 Oximetry O2 Sat by Pulse 98 Oximetry [ Assessment] Constitutional: appears uncomfortable, other (thin middle aged male with mildly increased respiratory effort at rest on MVS) Eyes: non-icteric ENT: oropharynx moist, other (S/P Tracheostomy) Neck: supple, no lymphadenopathy, no JVD Effort: mildly labored Ascultation: Bilateral: clear, diminished breath sounds (bases), wheezes, rhonchi (scant in bases) Percussion: Bilateral: not dull Cardiovascular: regular rate and rhythm, other (S1,S2, no murmurs) Gastrointestinal: normoactive bowel sounds, soft, non-tender, non-distended Integumentary: normal, decubitus ulcer (sacral / gluteal) Extremities: no cyanosis, no edema, pulses normal, other (atrophic looking limbs) Neurologic: pupils equal and round, other (motor strength in extremities 1-2/5, awake, alert, mouths words to make needs known) Psychiatric: depressed CBC and BMP: 05/26/20 05:28 05/26/20 05:28 ABG, PT/INR, D-dimer: ABG ABG pH 7.371 (7.320-7.450) 03/08/20 12:34 POC ABG pCO2 63.1 mmHg (32.0-48.0) H 03/08/20 12:34 ABG pCO2 60.1 mm Hg 03/06/20 04:34 POC ABG pO2 90.5 mmHg (83-108) 03/08/20 12:34 ABG pO2 88.6 mm Hg (80.0-90.0) 03/06/20 04:34 POC ABG HCO3 35.7 03/08/20 12:34 ABG O2 Saturation 97.0 % (95.0-99.0) 03/06/20 04:34 PT/INR, D-dimer PT 15.6 Sec. (12.2-14.9) H 02/24/20 09:19 INR 1.21 (0.87-1.13) H 02/24/20 09:19 D-Dimer 1311.96 ng/mlDDU (0-234) H 02/24/20 09:19 Abnormal lab findings: Abnormal Labs 02/24/20 02/24/20 02/24/20 09:19 09:19 09:19 WBC 20.2 H RBC 5.05 H Hgb Hct MCV MCH RDW 15.3 H Plt Count Lymph % (Auto) [place] % (Auto) Eos % (Auto) Lymph # (Auto) [place] # (Auto) Eos # (Auto) Seg Neutrophils % Seg Neuts % (Manual) 86.0 H Lymphocytes % (Manual) 1.0 L Monocytes % (Manual) Basophils % (Manual) Seg Neutrophils # Seg Neutrophils # Man 17.4 H Lymphocytes # (Manual) 0.2 L Monocytes # (Manual) Eosinophils # (Manual) Basophils # (Manual) PT 15.6 H INR 1.21 H D-Dimer 1311.96 H ABG pH POC ABG pCO2 POC ABG pO2 ABG pO2 ABG HCO3 ABG O2 Saturation ABG Base Excess ABG Hemoglobin ABG Oxyhemoglobin ABG Potassium ABG Glucose Oxyhemoglobin Carboxyhemoglobin Sodium 135 L Potassium 3.2 L Chloride 92.2 L Carbon Dioxide BUN 6 L Creatinine < 0.2 L Glucose 124 H POC Glucose Calcium Ferritin Total Bilirubin 2.30 H Alkaline Phosphatase 132 H Lactate Dehydrogenase Total Creatine Kinase CK-MB (CK-2) Rel Index Troponin T 0.080 H C-Reactive Protein Total Protein Albumin 3.6 L Prealbumin LDL Cholesterol Direct 41 L HDL Cholesterol Arterial Blood Glucose Arterial Blood Ionized Calcium Urine WBC (Auto) 02/24/20 02/24/20 02/24/20 09:19 09:58 10:01 WBC RBC Hgb Hct MCV MCH RDW Plt Count Lymph % (Auto) [place] % (Auto) Eos % (Auto) Lymph # (Auto) [place] # (Auto) Eos # (Auto) Seg Neutrophils % Seg Neuts % (Manual) Lymphocytes % (Manual) Monocytes % (Manual) Basophils % (Manual) Seg Neutrophils # Seg Neutrophils # Man Lymphocytes # (Manual) Monocytes # (Manual) Eosinophils # (Manual) Basophils # (Manual) PT INR D-Dimer ABG pH 7.176 L* POC ABG pCO2 POC ABG pO2 ABG pO2 91.2 H ABG HCO3 ABG O2 Saturation ABG Base Excess -4.6 L ABG Hemoglobin ABG Oxyhemoglobin ABG Potassium ABG Glucose Oxyhemoglobin 92.6 L Carboxyhemoglobin Sodium Potassium Chloride Carbon Dioxide BUN Creatinine Glucose POC Glucose Calcium Ferritin 1715.0 H Total Bilirubin Alkaline Phosphatase Lactate Dehydrogenase 303 H Total Creatine Kinase CK-MB (CK-2) Rel Index Troponin T C-Reactive Protein 26.10 H Total Protein Albumin Prealbumin LDL Cholesterol Direct HDL Cholesterol Arterial Blood Glucose Arterial Blood Ionized Calcium Urine WBC (Auto) 02/24/20 02/24/20 02/24/20 11:52 13:45 19:35 WBC RBC Hgb Hct MCV MCH RDW Plt Count Lymph % (Auto) [place] % (Auto) Eos % (Auto) Lymph # (Auto) [place] # (Auto) Eos # (Auto) Seg Neutrophils % Seg Neuts % (Manual) Lymphocytes % (Manual) Monocytes % (Manual) Basophils % (Manual) Seg Neutrophils # Seg Neutrophils # Man Lymphocytes # (Manual) Monocytes # (Manual) Eosinophils # (Manual) Basophils # (Manual) PT INR D-Dimer ABG pH 7.051 L* 7.300 L POC ABG pCO2 POC ABG pO2 ABG pO2 94.7 H 75.1 L ABG HCO3 18.0 L ABG O2 Saturation 93.5 L ABG Base Excess -6.8 L -7.8 L ABG Hemoglobin 13.2 L 11.9 L ABG Oxyhemoglobin ABG Potassium ABG Glucose Oxyhemoglobin 91.0 L 92.7 L Carboxyhemoglobin Sodium Potassium Chloride Carbon Dioxide BUN Creatinine Glucose POC Glucose Calcium Ferritin Total Bilirubin Alkaline Phosphatase Lactate Dehydrogenase Total Creatine Kinase CK-MB (CK-2) Rel Index Troponin T 0.034 H D C-Reactive Protein Total Protein Albumin Prealbumin LDL Cholesterol Direct HDL Cholesterol Arterial Blood Glucose Arterial Blood Ionized Calcium Urine WBC (Auto) 02/25/20 02/25/20 02/25/20 04:00 04:00 12:26 WBC 22.9 H RBC Hgb Hct MCV 83 L MCH 27 L RDW Plt Count 468 H Lymph % (Auto) [place] % (Auto) Eos % (Auto) Lymph # (Auto) [place] # (Auto) Eos # (Auto) Seg Neutrophils % Seg Neuts % (Manual) 89.0 H Lymphocytes % (Manual) 7.0 L Monocytes % (Manual) Basophils % (Manual) Seg Neutrophils # Seg Neutrophils # Man 20.4 H Lymphocytes # (Manual) Monocytes # (Manual) Eosinophils # (Manual) Basophils # (Manual) PT INR D-Dimer ABG pH POC ABG pCO2 POC ABG pO2 ABG pO2 ABG HCO3 ABG O2 Saturation ABG Base Excess ABG Hemoglobin ABG Oxyhemoglobin ABG Potassium 2.6 L ABG Glucose 142 H Oxyhemoglobin Carboxyhemoglobin Sodium Potassium 3.2 L Chloride Carbon Dioxide 18 L BUN Creatinine 0.2 L Glucose 114 H POC Glucose Calcium Ferritin Total Bilirubin Alkaline Phosphatase Lactate Dehydrogenase Total Creatine Kinase CK-MB (CK-2) Rel Index Troponin T C-Reactive Protein Total Protein Albumin 3.5 L Prealbumin LDL Cholesterol Direct HDL Cholesterol Arterial Blood Glucose 142 H Arterial Blood Ionized Calcium Urine WBC (Auto) 02/26/20 02/26/20 02/26/20 15:58 17:00 23:43 WBC RBC Hgb Hct MCV MCH RDW Plt Count Lymph % (Auto) [place] % (Auto) Eos % (Auto) Lymph # (Auto) [place] # (Auto) Eos # (Auto) Seg Neutrophils % Seg Neuts % (Manual) Lymphocytes % (Manual) Monocytes % (Manual) Basophils % (Manual) Seg Neutrophils # Seg Neutrophils # Man Lymphocytes # (Manual) Monocytes # (Manual) Eosinophils # (Manual) Basophils # (Manual) PT INR D-Dimer ABG pH 7.502 H POC ABG pCO2 POC ABG pO2 213.6 H ABG pO2 ABG HCO3 ABG O2 Saturation ABG Base Excess ABG Hemoglobin ABG Oxyhemoglobin 99.2 H ABG Potassium 2.9 L ABG Glucose 160 H Oxyhemoglobin Carboxyhemoglobin 0.4 L Sodium Potassium Chloride Carbon Dioxide BUN Creatinine Glucose POC Glucose 189 H 120 H Calcium Ferritin Total Bilirubin Alkaline Phosphatase Lactate Dehydrogenase Total Creatine Kinase CK-MB (CK-2) Rel Index Troponin T C-Reactive Protein Total Protein Albumin Prealbumin LDL Cholesterol Direct HDL Cholesterol Arterial Blood Glucose 160 H Arterial Blood Ionized Calcium 4.5 L Urine WBC (Auto) 02/27/20 02/27/20 02/27/20 05:00 07:04 17:45 WBC RBC Hgb Hct MCV MCH RDW Plt Count Lymph % (Auto) [place] % (Auto) Eos % (Auto) Lymph # (Auto) [place] # (Auto) Eos # (Auto) Seg Neutrophils % Seg Neuts % (Manual) Lymphocytes % (Manual) Monocytes % (Manual) Basophils % (Manual) Seg Neutrophils # Seg Neutrophils # Man Lymphocytes # (Manual) Monocytes # (Manual) Eosinophils # (Manual) Basophils # (Manual) PT INR D-Dimer ABG pH 7.524 H POC ABG pCO2 POC ABG pO2 ABG pO2 ABG HCO3 ABG O2 Saturation ABG Base Excess ABG Hemoglobin ABG Oxyhemoglobin ABG Potassium 3.0 L ABG Glucose 143 H Oxyhemoglobin Carboxyhemoglobin Sodium Potassium Chloride Carbon Dioxide BUN Creatinine Glucose POC Glucose 154 H 175 H Calcium Ferritin Total Bilirubin Alkaline Phosphatase Lactate Dehydrogenase Total Creatine Kinase CK-MB (CK-2) Rel Index Troponin T C-Reactive Protein Total Protein Albumin Prealbumin LDL Cholesterol Direct HDL Cholesterol Arterial Blood Glucose 143 H Arterial Blood Ionized Calcium Urine WBC (Auto) 02/27/20 02/28/20 02/28/20 Unknown 00:21 04:15 WBC 18.7 H RBC Hgb Hct MCV MCH RDW Plt Count Lymph % (Auto) 8.7 L [place] % (Auto) Eos % (Auto) Lymph # (Auto) [place] # (Auto) 1.2 H Eos # (Auto) Seg Neutrophils % 84.6 H Seg Neuts % (Manual) Lymphocytes % (Manual) Monocytes % (Manual) Basophils % (Manual) Seg Neutrophils # 15.9 H Seg Neutrophils # Man Lymphocytes # (Manual) Monocytes # (Manual) Eosinophils # (Manual) Basophils # (Manual) PT INR D-Dimer ABG pH POC ABG pCO2 POC ABG pO2 ABG pO2 ABG HCO3 ABG O2 Saturation ABG Base Excess ABG Hemoglobin ABG Oxyhemoglobin ABG Potassium ABG Glucose Oxyhemoglobin Carboxyhemoglobin Sodium Potassium 2.9 L* Chloride Carbon Dioxide 33 H D BUN Creatinine < 0.2 L Glucose 157 H POC Glucose 134 H Calcium Ferritin Total Bilirubin Alkaline Phosphatase Lactate Dehydrogenase Total Creatine Kinase CK-MB (CK-2) Rel Index Troponin T C-Reactive Protein Total Protein Albumin Prealbumin LDL Cholesterol Direct HDL Cholesterol Arterial Blood Glucose Arterial Blood Ionized Calcium Urine WBC (Auto) 02/28/20 02/28/20 02/28/20 04:15 05:16 05:39 WBC RBC Hgb Hct MCV MCH RDW Plt Count Lymph % (Auto) [place] % (Auto) Eos % (Auto) Lymph # (Auto) [place] # (Auto) Eos # (Auto) Seg Neutrophils % Seg Neuts % (Manual) Lymphocytes % (Manual) Monocytes % (Manual) Basophils % (Manual) Seg Neutrophils # Seg Neutrophils # Man Lymphocytes # (Manual) Monocytes # (Manual) Eosinophils # (Manual) Basophils # (Manual) PT INR D-Dimer ABG pH POC ABG pCO2 POC ABG pO2 ABG pO2 142.9 H ABG HCO3 34.1 H ABG O2 Saturation ABG Base Excess 8.3 H ABG Hemoglobin ABG Oxyhemoglobin ABG Potassium ABG Glucose Oxyhemoglobin Carboxyhemoglobin Sodium 151 H Potassium Chloride Carbon Dioxide 32 H BUN Creatinine 0.2 L Glucose 167 H POC Glucose 138 H Calcium Ferritin Total Bilirubin Alkaline Phosphatase Lactate Dehydrogenase Total Creatine Kinase CK-MB (CK-2) Rel Index Troponin T C-Reactive Protein Total Protein Albumin Prealbumin LDL Cholesterol Direct HDL Cholesterol Arterial Blood Glucose Arterial Blood Ionized Calcium Urine WBC (Auto) 02/28/20 02/28/20 02/28/20 11:05 11:33 12:54 WBC RBC Hgb Hct MCV MCH RDW Plt Count Lymph % (Auto) [place] % (Auto) Eos % (Auto) Lymph # (Auto) [place] # (Auto) Eos # (Auto) Seg Neutrophils % Seg Neuts % (Manual) Lymphocytes % (Manual) Monocytes % (Manual) Basophils % (Manual) Seg Neutrophils # Seg Neutrophils # Man Lymphocytes # (Manual) Monocytes # (Manual) Eosinophils # (Manual) Basophils # (Manual) PT INR D-Dimer ABG pH POC ABG pCO2 POC ABG pO2 ABG pO2 ABG HCO3 ABG O2 Saturation ABG Base Excess ABG Hemoglobin ABG Oxyhemoglobin ABG Potassium ABG Glucose Oxyhemoglobin Carboxyhemoglobin Sodium Potassium Chloride Carbon Dioxide BUN Creatinine Glucose POC Glucose 160 H Calcium Ferritin Total Bilirubin Alkaline Phosphatase Lactate Dehydrogenase Total Creatine Kinase CK-MB (CK-2) Rel Index Troponin T C-Reactive Protein 4.70 H Total Protein Albumin Prealbumin 0.090 L LDL Cholesterol Direct HDL Cholesterol Arterial Blood Glucose Arterial Blood Ionized Calcium Urine WBC (Auto) 02/28/20 02/29/20 02/29/20 17:34 00:44 04:05 WBC 19.6 H RBC Hgb Hct MCV MCH 27 L RDW 15.4 H Plt Count Lymph % (Auto) [place] % (Auto) Eos % (Auto) Lymph # (Auto) [place] # (Auto) Eos # (Auto) Seg Neutrophils % Seg Neuts % (Manual) 86.0 H Lymphocytes % (Manual) 7.0 L Monocytes % (Manual) Basophils % (Manual) Seg Neutrophils # Seg Neutrophils # Man 16.9 H Lymphocytes # (Manual) Monocytes # (Manual) 1.2 H Eosinophils # (Manual) Basophils # (Manual) PT INR D-Dimer ABG pH POC ABG pCO2 POC ABG pO2 ABG pO2 ABG HCO3 ABG O2 Saturation ABG Base Excess ABG Hemoglobin ABG Oxyhemoglobin ABG Potassium ABG Glucose Oxyhemoglobin Carboxyhemoglobin Sodium Potassium Chloride Carbon Dioxide BUN Creatinine Glucose POC Glucose 136 H 156 H Calcium Ferritin Total Bilirubin Alkaline Phosphatase Lactate Dehydrogenase Total Creatine Kinase CK-MB (CK-2) Rel Index Troponin T C-Reactive Protein Total Protein Albumin Prealbumin LDL Cholesterol Direct HDL Cholesterol Arterial Blood Glucose Arterial Blood Ionized Calcium Urine WBC (Auto) 02/29/20 02/29/20 02/29/20 04:05 05:14 05:33 WBC RBC Hgb Hct MCV MCH RDW Plt Count Lymph % (Auto) [place] % (Auto) Eos % (Auto) Lymph # (Auto) [place] # (Auto) Eos # (Auto) Seg Neutrophils % Seg Neuts % (Manual) Lymphocytes % (Manual) Monocytes % (Manual) Basophils % (Manual) Seg Neutrophils # Seg Neutrophils # Man Lymphocytes # (Manual) Monocytes # (Manual) Eosinophils # (Manual) Basophils # (Manual) PT INR D-Dimer ABG pH POC ABG pCO2 54.3 H POC ABG pO2 124.8 H ABG pO2 ABG HCO3 ABG O2 Saturation ABG Base Excess ABG Hemoglobin ABG Oxyhemoglobin ABG Potassium ABG Glucose 185 H Oxyhemoglobin Carboxyhemoglobin Sodium 148 H Potassium Chloride Carbon Dioxide 33 H BUN Creatinine < 0.2 L Glucose 173 H POC Glucose 152 H Calcium Ferritin Total Bilirubin Alkaline Phosphatase Lactate Dehydrogenase Total Creatine Kinase CK-MB (CK-2) Rel Index Troponin T C-Reactive Protein Total Protein Albumin Prealbumin LDL Cholesterol Direct HDL Cholesterol Arterial Blood Glucose 185 H Arterial Blood Ionized Calcium Urine WBC (Auto) 03/01/20 03/01/20 03/01/20 00:00 03:45 04:33 WBC 23.1 H RBC Hgb Hct MCV MCH 27 L RDW 15.3 H Plt Count Lymph % (Auto) [place] % (Auto) Eos % (Auto) Lymph # (Auto) [place] # (Auto) Eos # (Auto) Seg Neutrophils % Seg Neuts % (Manual) 92.0 H Lymphocytes % (Manual) 6.0 L Monocytes % (Manual) Basophils % (Manual) Seg Neutrophils # Seg Neutrophils # Man 21.3 H Lymphocytes # (Manual) Monocytes # (Manual) Eosinophils # (Manual) 0.5 H Basophils # (Manual) PT INR D-Dimer ABG pH 7.492 H POC ABG pCO2 POC ABG pO2 ABG pO2 157.1 H ABG HCO3 32.3 H ABG O2 Saturation ABG Base Excess 8.1 H ABG Hemoglobin 13.2 L ABG Oxyhemoglobin ABG Potassium ABG Glucose Oxyhemoglobin Carboxyhemoglobin Sodium Potassium Chloride Carbon Dioxide BUN Creatinine Glucose POC Glucose 109 H Calcium Ferritin Total Bilirubin Alkaline Phosphatase Lactate Dehydrogenase Total Creatine Kinase CK-MB (CK-2) Rel Index Troponin T C-Reactive Protein Total Protein Albumin Prealbumin LDL Cholesterol Direct HDL Cholesterol Arterial Blood Glucose Arterial Blood Ionized Calcium Urine WBC (Auto) 03/01/20 03/01/20 03/01/20 04:33 05:29 12:32 WBC RBC Hgb Hct MCV MCH RDW Plt Count Lymph % (Auto) [place] % (Auto) Eos % (Auto) Lymph # (Auto) [place] # (Auto) Eos # (Auto) Seg Neutrophils % Seg Neuts % (Manual) Lymphocytes % (Manual) Monocytes % (Manual) Basophils % (Manual) Seg Neutrophils # Seg Neutrophils # Man Lymphocytes # (Manual) Monocytes # (Manual) Eosinophils # (Manual) Basophils # (Manual) PT INR D-Dimer ABG pH POC ABG pCO2 POC ABG pO2 ABG pO2 ABG HCO3 ABG O2 Saturation ABG Base Excess ABG Hemoglobin ABG Oxyhemoglobin ABG Potassium ABG Glucose Oxyhemoglobin Carboxyhemoglobin Sodium 146 H Potassium Chloride Carbon Dioxide 32 H BUN Creatinine < 0.2 L Glucose 120 H POC Glucose 120 H 128 H Calcium Ferritin Total Bilirubin Alkaline Phosphatase Lactate Dehydrogenase Total Creatine Kinase CK-MB (CK-2) Rel Index Troponin T C-Reactive Protein Total Protein Albumin Prealbumin LDL Cholesterol Direct HDL Cholesterol Arterial Blood Glucose Arterial Blood Ionized Calcium Urine WBC (Auto) 03/01/20 03/01/20 03/02/20 17:38 23:46 06:13 WBC RBC Hgb Hct MCV MCH RDW Plt Count Lymph % (Auto) [place] % (Auto) Eos % (Auto) Lymph # (Auto) [place] # (Auto) Eos # (Auto) Seg Neutrophils % Seg Neuts % (Manual) Lymphocytes % (Manual) Monocytes % (Manual) Basophils % (Manual) Seg Neutrophils # Seg Neutrophils # Man Lymphocytes # (Manual) Monocytes # (Manual) Eosinophils # (Manual) Basophils # (Manual) PT INR D-Dimer ABG pH POC ABG pCO2 POC ABG pO2 ABG pO2 ABG HCO3 ABG O2 Saturation ABG Base Excess ABG Hemoglobin ABG Oxyhemoglobin ABG Potassium ABG Glucose Oxyhemoglobin Carboxyhemoglobin Sodium Potassium Chloride Carbon Dioxide BUN Creatinine Glucose POC Glucose 114 H 121 H 120 H Calcium Ferritin Total Bilirubin Alkaline Phosphatase Lactate Dehydrogenase Total Creatine Kinase CK-MB (CK-2) Rel Index Troponin T C-Reactive Protein Total Protein Albumin Prealbumin LDL Cholesterol Direct HDL Cholesterol Arterial Blood Glucose Arterial Blood Ionized Calcium Urine WBC (Auto) 03/02/20 03/02/20 03/03/20 09:47 09:47 10:21 WBC 23.6 H RBC Hgb Hct MCV MCH RDW 15.3 H Plt Count 494 H Lymph % (Auto) [place] % (Auto) Eos % (Auto) Lymph # (Auto) [place] # (Auto) Eos # (Auto) Seg Neutrophils % Seg Neuts % (Manual) 85.0 H Lymphocytes % (Manual) 6.0 L Monocytes % (Manual) Basophils % (Manual) Seg Neutrophils # Seg Neutrophils # Man 20.1 H Lymphocytes # (Manual) Monocytes # (Manual) 1.7 H Eosinophils # (Manual) Basophils # (Manual) PT INR D-Dimer ABG pH POC ABG pCO2 POC ABG pO2 ABG pO2 ABG HCO3 ABG O2 Saturation ABG Base Excess ABG Hemoglobin ABG Oxyhemoglobin ABG Potassium 3.3 L ABG Glucose 158 H Oxyhemoglobin Carboxyhemoglobin Sodium Potassium Chloride Carbon Dioxide BUN Creatinine < 0.2 L Glucose 177 H POC Glucose Calcium Ferritin Total Bilirubin Alkaline Phosphatase Lactate Dehydrogenase Total Creatine Kinase CK-MB (CK-2) Rel Index Troponin T C-Reactive Protein Total Protein Albumin Prealbumin LDL Cholesterol Direct HDL Cholesterol Arterial Blood Glucose 158 H Arterial Blood Ionized Calcium Urine WBC (Auto) 03/03/20 03/04/20 03/04/20 21:30 00:00 12:23 WBC RBC Hgb Hct MCV MCH RDW Plt Count Lymph % (Auto) [place] % (Auto) Eos % (Auto) Lymph # (Auto) [place] # (Auto) Eos # (Auto) Seg Neutrophils % Seg Neuts % (Manual) Lymphocytes % (Manual) Monocytes % (Manual) Basophils % (Manual) Seg Neutrophils # Seg Neutrophils # Man Lymphocytes # (Manual) Monocytes # (Manual) Eosinophils # (Manual) Basophils # (Manual) PT INR D-Dimer ABG pH 7.328 L POC ABG pCO2 POC ABG pO2 ABG pO2 68.4 L ABG HCO3 35.0 H ABG O2 Saturation 93.9 L ABG Base Excess 6.8 H ABG Hemoglobin 12.7 L ABG Oxyhemoglobin ABG Potassium ABG Glucose Oxyhemoglobin 91.9 L Carboxyhemoglobin Sodium Potassium Chloride Carbon Dioxide BUN Creatinine Glucose POC Glucose 187 H 163 H Calcium Ferritin Total Bilirubin Alkaline Phosphatase Lactate Dehydrogenase Total Creatine Kinase CK-MB (CK-2) Rel Index Troponin T C-Reactive Protein Total Protein Albumin Prealbumin LDL Cholesterol Direct HDL Cholesterol Arterial Blood Glucose Arterial Blood Ionized Calcium Urine WBC (Auto) 03/04/20 03/04/20 03/05/20 18:15 21:30 06:02 WBC RBC Hgb Hct MCV MCH RDW Plt Count Lymph % (Auto) [place] % (Auto) Eos % (Auto) Lymph # (Auto) [place] # (Auto) Eos # (Auto) Seg Neutrophils % Seg Neuts % (Manual) Lymphocytes % (Manual) Monocytes % (Manual) Basophils % (Manual) Seg Neutrophils # Seg Neutrophils # Man Lymphocytes # (Manual) Monocytes # (Manual) Eosinophils # (Manual) Basophils # (Manual) PT INR D-Dimer ABG pH 7.297 L POC ABG pCO2 POC ABG pO2 ABG pO2 ABG HCO3 41.0 H ABG O2 Saturation ABG Base Excess 11.0 H ABG Hemoglobin 13.1 L ABG Oxyhemoglobin ABG Potassium ABG Glucose Oxyhemoglobin 94.5 L Carboxyhemoglobin Sodium Potassium Chloride Carbon Dioxide BUN Creatinine Glucose POC Glucose 192 H 127 H Calcium Ferritin Total Bilirubin Alkaline Phosphatase Lactate Dehydrogenase Total Creatine Kinase CK-MB (CK-2) Rel Index Troponin T C-Reactive Protein Total Protein Albumin Prealbumin LDL Cholesterol Direct HDL Cholesterol Arterial Blood Glucose Arterial Blood Ionized Calcium Urine WBC (Auto) 03/05/20 03/05/20 03/06/20 12:09 16:42 00:24 WBC RBC Hgb Hct MCV MCH RDW Plt Count Lymph % (Auto) [place] % (Auto) Eos % (Auto) Lymph # (Auto) [place] # (Auto) Eos # (Auto) Seg Neutrophils % Seg Neuts % (Manual) Lymphocytes % (Manual) Monocytes % (Manual) Basophils % (Manual) Seg Neutrophils # Seg Neutrophils # Man Lymphocytes # (Manual) Monocytes # (Manual) Eosinophils # (Manual) Basophils # (Manual) PT INR D-Dimer ABG pH POC ABG pCO2 POC ABG pO2 ABG pO2 ABG HCO3 ABG O2 Saturation ABG Base Excess ABG Hemoglobin ABG Oxyhemoglobin ABG Potassium ABG Glucose Oxyhemoglobin Carboxyhemoglobin Sodium Potassium Chloride Carbon Dioxide BUN Creatinine Glucose POC Glucose 147 H 114 H 134 H Calcium Ferritin Total Bilirubin Alkaline Phosphatase Lactate Dehydrogenase Total Creatine Kinase CK-MB (CK-2) Rel Index Troponin T C-Reactive Protein Total Protein Albumin Prealbumin LDL Cholesterol Direct HDL Cholesterol Arterial Blood Glucose Arterial Blood Ionized Calcium Urine WBC (Auto) 03/06/20 03/06/20 03/06/20 04:34 05:53 06:08 WBC 25.4 H RBC Hgb 10.5 L Hct 32.7 L MCV MCH 27 L RDW 15.3 H Plt Count 634 H Lymph % (Auto) [place] % (Auto) Eos % (Auto) Lymph # (Auto) [place] # (Auto) Eos # (Auto) Seg Neutrophils % Seg Neuts % (Manual) 88.0 H Lymphocytes % (Manual) 2.0 L Monocytes % (Manual) 8.0 H Basophils % (Manual) Seg Neutrophils # Seg Neutrophils # Man 22.4 H Lymphocytes # (Manual) 0.5 L Monocytes # (Manual) 2.0 H Eosinophils # (Manual) Basophils # (Manual) PT INR D-Dimer ABG pH POC ABG pCO2 POC ABG pO2 ABG pO2 ABG HCO3 37.9 H ABG O2 Saturation ABG Base Excess 11.4 H ABG Hemoglobin 10.6 L ABG Oxyhemoglobin ABG Potassium ABG Glucose Oxyhemoglobin 94.7 L Carboxyhemoglobin Sodium Potassium Chloride Carbon Dioxide BUN Creatinine Glucose POC Glucose 135 H Calcium Ferritin Total Bilirubin Alkaline Phosphatase Lactate Dehydrogenase Total Creatine Kinase CK-MB (CK-2) Rel Index Troponin T C-Reactive Protein Total Protein Albumin Prealbumin LDL Cholesterol Direct HDL Cholesterol Arterial Blood Glucose Arterial Blood Ionized Calcium Urine WBC (Auto) 03/06/20 03/06/20 03/06/20 06:08 12:19 19:10 WBC RBC Hgb Hct MCV MCH RDW Plt Count Lymph % (Auto) [place] % (Auto) Eos % (Auto) Lymph # (Auto) [place] # (Auto) Eos # (Auto) Seg Neutrophils % Seg Neuts % (Manual) Lymphocytes % (Manual) Monocytes % (Manual) Basophils % (Manual) Seg Neutrophils # Seg Neutrophils # Man Lymphocytes # (Manual) Monocytes # (Manual) Eosinophils # (Manual) Basophils # (Manual) PT INR D-Dimer ABG pH POC ABG pCO2 POC ABG pO2 ABG pO2 ABG HCO3 ABG O2 Saturation ABG Base Excess ABG Hemoglobin ABG Oxyhemoglobin ABG Potassium ABG Glucose Oxyhemoglobin Carboxyhemoglobin Sodium 150 H D Potassium Chloride Carbon Dioxide 39 H D BUN 23 H Creatinine < 0.2 L Glucose 144 H POC Glucose 169 H 152 H Calcium Ferritin Total Bilirubin Alkaline Phosphatase Lactate Dehydrogenase Total Creatine Kinase CK-MB (CK-2) Rel Index Troponin T C-Reactive Protein Total Protein Albumin 3.3 L Prealbumin LDL Cholesterol Direct HDL Cholesterol Arterial Blood Glucose Arterial Blood Ionized Calcium Urine WBC (Auto) 03/06/20 03/07/20 03/07/20 23:58 04:25 04:25 WBC 22.1 H RBC Hgb 10.9 L Hct 32.9 L MCV MCH RDW 15.5 H Plt Count 739 H Lymph % (Auto) 7.8 L [place] % (Auto) Eos % (Auto) Lymph # (Auto) [place] # (Auto) 1.3 H Eos # (Auto) Seg Neutrophils % 85.5 H Seg Neuts % (Manual) Lymphocytes % (Manual) Monocytes % (Manual) Basophils % (Manual) Seg Neutrophils # 18.9 H Seg Neutrophils # Man Lymphocytes # (Manual) Monocytes # (Manual) Eosinophils # (Manual) Basophils # (Manual) PT INR D-Dimer ABG pH POC ABG pCO2 POC ABG pO2 ABG pO2 ABG HCO3 ABG O2 Saturation ABG Base Excess ABG Hemoglobin ABG Oxyhemoglobin ABG Potassium ABG Glucose Oxyhemoglobin Carboxyhemoglobin Sodium 146 H Potassium Chloride Carbon Dioxide 37 H BUN Creatinine < 0.2 L Glucose 118 H POC Glucose 111 H Calcium Ferritin Total Bilirubin Alkaline Phosphatase Lactate Dehydrogenase Total Creatine Kinase CK-MB (CK-2) Rel Index Troponin T C-Reactive Protein Total Protein Albumin 3.7 L Prealbumin LDL Cholesterol Direct HDL Cholesterol Arterial Blood Glucose Arterial Blood Ionized Calcium Urine WBC (Auto) 03/07/20 03/07/20 03/07/20 05:20 17:45 23:32 WBC RBC Hgb Hct MCV MCH RDW Plt Count Lymph % (Auto) [place] % (Auto) Eos % (Auto) Lymph # (Auto) [place] # (Auto) Eos # (Auto) Seg Neutrophils % Seg Neuts % (Manual) Lymphocytes % (Manual) Monocytes % (Manual) Basophils % (Manual) Seg Neutrophils # Seg Neutrophils # Man Lymphocytes # (Manual) Monocytes # (Manual) Eosinophils # (Manual) Basophils # (Manual) PT INR D-Dimer ABG pH POC ABG pCO2 POC ABG pO2 ABG pO2 ABG HCO3 ABG O2 Saturation ABG Base Excess ABG Hemoglobin ABG Oxyhemoglobin ABG Potassium ABG Glucose Oxyhemoglobin Carboxyhemoglobin Sodium Potassium Chloride Carbon Dioxide BUN Creatinine Glucose POC Glucose 113 H 124 H 210 H Calcium Ferritin Total Bilirubin Alkaline Phosphatase Lactate Dehydrogenase Total Creatine Kinase CK-MB (CK-2) Rel Index Troponin T C-Reactive Protein Total Protein Albumin Prealbumin LDL Cholesterol Direct HDL Cholesterol Arterial Blood Glucose Arterial Blood Ionized Calcium Urine WBC (Auto) 03/08/20 03/08/20 03/08/20 05:35 06:43 06:43 WBC 28.9 H RBC 3.53 L Hgb 9.7 L Hct 30.3 L MCV MCH RDW 15.6 H Plt Count 578 H Lymph % (Auto) [place] % (Auto) Eos % (Auto) Lymph # (Auto) [place] # (Auto) Eos # (Auto) Seg Neutrophils % Seg Neuts % (Manual) 93.0 H Lymphocytes % (Manual) 4.0 L Monocytes % (Manual) Basophils % (Manual) Seg Neutrophils # Seg Neutrophils # Man 26.9 H Lymphocytes # (Manual) Monocytes # (Manual) Eosinophils # (Manual) Basophils # (Manual) PT INR D-Dimer ABG pH POC ABG pCO2 POC ABG pO2 ABG pO2 ABG HCO3 ABG O2 Saturation ABG Base Excess ABG Hemoglobin ABG Oxyhemoglobin ABG Potassium ABG Glucose Oxyhemoglobin Carboxyhemoglobin Sodium 146 H Potassium Chloride Carbon Dioxide 35 H BUN 34 H Creatinine 0.3 L D Glucose 125 H POC Glucose 147 H Calcium Ferritin Total Bilirubin Alkaline Phosphatase Lactate Dehydrogenase Total Creatine Kinase CK-MB (CK-2) Rel Index Troponin T C-Reactive Protein Total Protein 5.9 L Albumin 3.2 L Prealbumin LDL Cholesterol Direct HDL Cholesterol Arterial Blood Glucose Arterial Blood Ionized Calcium Urine WBC (Auto) 03/08/20 03/08/20 03/08/20 08:57 11:14 12:34 WBC RBC Hgb Hct MCV MCH RDW Plt Count Lymph % (Auto) [place] % (Auto) Eos % (Auto) Lymph # (Auto) [place] # (Auto) Eos # (Auto) Seg Neutrophils % Seg Neuts % (Manual) Lymphocytes % (Manual) Monocytes % (Manual) Basophils % (Manual) Seg Neutrophils # Seg Neutrophils # Man Lymphocytes # (Manual) Monocytes # (Manual) Eosinophils # (Manual) Basophils # (Manual) PT INR D-Dimer ABG pH POC ABG pCO2 63.1 H POC ABG pO2 ABG pO2 ABG HCO3 ABG O2 Saturation ABG Base Excess ABG Hemoglobin 10.9 L ABG Oxyhemoglobin ABG Potassium ABG Glucose 176 H Oxyhemoglobin Carboxyhemoglobin Sodium Potassium Chloride Carbon Dioxide BUN Creatinine Glucose POC Glucose 171 H Calcium Ferritin Total Bilirubin Alkaline Phosphatase Lactate Dehydrogenase Total Creatine Kinase CK-MB (CK-2) Rel Index Troponin T C-Reactive Protein Total Protein Albumin Prealbumin LDL Cholesterol Direct HDL Cholesterol Arterial Blood Glucose 176 H Arterial Blood Ionized Calcium 4.5 L Urine WBC (Auto) 10.0 H 03/08/20 03/08/20 03/09/20 18:02 23:43 05:49 WBC RBC Hgb Hct MCV MCH RDW Plt Count Lymph % (Auto) [place] % (Auto) Eos % (Auto) Lymph # (Auto) [place] # (Auto) Eos # (Auto) Seg Neutrophils % Seg Neuts % (Manual) Lymphocytes % (Manual) Monocytes % (Manual) Basophils % (Manual) Seg Neutrophils # Seg Neutrophils # Man Lymphocytes # (Manual) Monocytes # (Manual) Eosinophils # (Manual) Basophils # (Manual) PT INR D-Dimer ABG pH POC ABG pCO2 POC ABG pO2 ABG pO2 ABG HCO3 ABG O2 Saturation ABG Base Excess ABG Hemoglobin ABG Oxyhemoglobin ABG Potassium ABG Glucose Oxyhemoglobin Carboxyhemoglobin Sodium Potassium Chloride Carbon Dioxide BUN Creatinine Glucose POC Glucose 157 H 134 H 163 H Calcium Ferritin Total Bilirubin Alkaline Phosphatase Lactate Dehydrogenase Total Creatine Kinase CK-MB (CK-2) Rel Index Troponin T C-Reactive Protein Total Protein Albumin Prealbumin LDL Cholesterol Direct HDL Cholesterol Arterial Blood Glucose Arterial Blood Ionized Calcium Urine WBC (Auto) 03/09/20 03/09/20 03/09/20 08:35 08:35 12:11 WBC 23.4 H RBC 3.36 L Hgb 9.3 L Hct 28.8 L MCV MCH RDW 15.9 H Plt Count 521 H Lymph % (Auto) [place] % (Auto) Eos % (Auto) Lymph # (Auto) [place] # (Auto) Eos # (Auto) Seg Neutrophils % Seg Neuts % (Manual) 87.0 H Lymphocytes % (Manual) 4.0 L Monocytes % (Manual) 9.0 H Basophils % (Manual) Seg Neutrophils # Seg Neutrophils # Man 20.4 H Lymphocytes # (Manual) 0.9 L Monocytes # (Manual) 2.1 H Eosinophils # (Manual) Basophils # (Manual) PT INR D-Dimer ABG pH POC ABG pCO2 POC ABG pO2 ABG pO2 ABG HCO3 ABG O2 Saturation ABG Base Excess ABG Hemoglobin ABG Oxyhemoglobin ABG Potassium ABG Glucose Oxyhemoglobin Carboxyhemoglobin Sodium 147 H Potassium Chloride Carbon Dioxide 37 H BUN 63 H Creatinine Glucose 154 H POC Glucose 128 H Calcium Ferritin Total Bilirubin Alkaline Phosphatase Lactate Dehydrogenase Total Creatine Kinase CK-MB (CK-2) Rel Index Troponin T C-Reactive Protein Total Protein Albumin Prealbumin LDL Cholesterol Direct HDL Cholesterol Arterial Blood Glucose Arterial Blood Ionized Calcium Urine WBC (Auto) 03/09/20 03/10/20 03/10/20 17:51 00:25 05:41 WBC RBC Hgb Hct MCV MCH RDW Plt Count Lymph % (Auto) [place] % (Auto) Eos % (Auto) Lymph # (Auto) [place] # (Auto) Eos # (Auto) Seg Neutrophils % Seg Neuts % (Manual) Lymphocytes % (Manual) Monocytes % (Manual) Basophils % (Manual) Seg Neutrophils # Seg Neutrophils # Man Lymphocytes # (Manual) Monocytes # (Manual) Eosinophils # (Manual) Basophils # (Manual) PT INR D-Dimer ABG pH POC ABG pCO2 POC ABG pO2 ABG pO2 ABG HCO3 ABG O2 Saturation ABG Base Excess ABG Hemoglobin ABG Oxyhemoglobin ABG Potassium ABG Glucose Oxyhemoglobin Carboxyhemoglobin Sodium Potassium Chloride Carbon Dioxide BUN Creatinine Glucose POC Glucose 127 H 128 H 153 H Calcium Ferritin Total Bilirubin Alkaline Phosphatase Lactate Dehydrogenase Total Creatine Kinase CK-MB (CK-2) Rel Index Troponin T C-Reactive Protein Total Protein Albumin Prealbumin LDL Cholesterol Direct HDL Cholesterol Arterial Blood Glucose Arterial Blood Ionized Calcium Urine WBC (Auto) 03/10/20 03/10/20 03/10/20 06:14 06:14 12:02 WBC 18.3 H RBC 3.45 L Hgb 9.5 L Hct 29.5 L MCV MCH RDW 16.1 H Plt Count 494 H Lymph % (Auto) [place] % (Auto) Eos % (Auto) Lymph # (Auto) [place] # (Auto) Eos # (Auto) Seg Neutrophils % Seg Neuts % (Manual) 95.0 H Lymphocytes % (Manual) 1.0 L Monocytes % (Manual) Basophils % (Manual) Seg Neutrophils # Seg Neutrophils # Man 17.4 H Lymphocytes # (Manual) 0.2 L Monocytes # (Manual) Eosinophils # (Manual) Basophils # (Manual) PT INR D-Dimer ABG pH POC ABG pCO2 POC ABG pO2 ABG pO2 ABG HCO3 ABG O2 Saturation ABG Base Excess ABG Hemoglobin ABG Oxyhemoglobin ABG Potassium ABG Glucose Oxyhemoglobin Carboxyhemoglobin Sodium 149 H Potassium Chloride Carbon Dioxide 35 H BUN 34 H Creatinine 0.2 L D Glucose 177 H POC Glucose 151 H Calcium Ferritin Total Bilirubin Alkaline Phosphatase Lactate Dehydrogenase Total Creatine Kinase CK-MB (CK-2) Rel Index Troponin T C-Reactive Protein Total Protein Albumin Prealbumin LDL Cholesterol Direct HDL Cholesterol Arterial Blood Glucose Arterial Blood Ionized Calcium Urine WBC (Auto) 03/10/20 03/10/20 03/11/20 17:41 23:53 05:02 WBC RBC Hgb Hct MCV MCH RDW Plt Count Lymph % (Auto) [place] % (Auto) Eos % (Auto) Lymph # (Auto) [place] # (Auto) Eos # (Auto) Seg Neutrophils % Seg Neuts % (Manual) Lymphocytes % (Manual) Monocytes % (Manual) Basophils % (Manual) Seg Neutrophils # Seg Neutrophils # Man Lymphocytes # (Manual) Monocytes # (Manual) Eosinophils # (Manual) Basophils # (Manual) PT INR D-Dimer ABG pH POC ABG pCO2 POC ABG pO2 ABG pO2 ABG HCO3 ABG O2 Saturation ABG Base Excess ABG Hemoglobin ABG Oxyhemoglobin ABG Potassium ABG Glucose Oxyhemoglobin Carboxyhemoglobin Sodium Potassium Chloride Carbon Dioxide BUN Creatinine Glucose POC Glucose 168 H 142 H 146 H Calcium Ferritin Total Bilirubin Alkaline Phosphatase Lactate Dehydrogenase Total Creatine Kinase CK-MB (CK-2) Rel Index Troponin T C-Reactive Protein Total Protein Albumin Prealbumin LDL Cholesterol Direct HDL Cholesterol Arterial Blood Glucose Arterial Blood Ionized Calcium Urine WBC (Auto) 03/11/20 03/11/20 03/11/20 11:30 14:01 14:01 WBC 19.7 H RBC 3.04 L Hgb 8.7 L Hct 25.8 L MCV MCH RDW 15.6 H Plt Count Lymph % (Auto) [place] % (Auto) Eos % (Auto) Lymph # (Auto) [place] # (Auto) Eos # (Auto) Seg Neutrophils % Seg Neuts % (Manual) Lymphocytes % (Manual) Monocytes % (Manual) Basophils % (Manual) Seg Neutrophils # Seg Neutrophils # Man Lymphocytes # (Manual) Monocytes # (Manual) Eosinophils # (Manual) Basophils # (Manual) PT INR D-Dimer ABG pH POC ABG pCO2 POC ABG pO2 ABG pO2 ABG HCO3 ABG O2 Saturation ABG Base Excess ABG Hemoglobin ABG Oxyhemoglobin ABG Potassium ABG Glucose Oxyhemoglobin Carboxyhemoglobin Sodium 151 H Potassium Chloride Carbon Dioxide 37 H BUN Creatinine < 0.2 L Glucose 171 H POC Glucose 248 H Calcium Ferritin Total Bilirubin Alkaline Phosphatase Lactate Dehydrogenase Total Creatine Kinase CK-MB (CK-2) Rel Index Troponin T C-Reactive Protein Total Protein Albumin Prealbumin LDL Cholesterol Direct HDL Cholesterol Arterial Blood Glucose Arterial Blood Ionized Calcium Urine WBC (Auto) 03/11/20 03/11/20 03/12/20 17:09 23:52 04:39 WBC 19.9 H RBC 3.16 L Hgb 8.9 L Hct 27.5 L MCV MCH RDW 15.7 H Plt Count Lymph % (Auto) 6.8 L [place] % (Auto) Eos % (Auto) Lymph # (Auto) [place] # (Auto) 1.2 H Eos # (Auto) Seg Neutrophils % 86.0 H Seg Neuts % (Manual) Lymphocytes % (Manual) Monocytes % (Manual) Basophils % (Manual) Seg Neutrophils # 17.1 H Seg Neutrophils # Man Lymphocytes # (Manual) Monocytes # (Manual) Eosinophils # (Manual) Basophils # (Manual) PT INR D-Dimer ABG pH POC ABG pCO2 POC ABG pO2 ABG pO2 ABG HCO3 ABG O2 Saturation ABG Base Excess ABG Hemoglobin ABG Oxyhemoglobin ABG Potassium ABG Glucose Oxyhemoglobin Carboxyhemoglobin Sodium Potassium Chloride Carbon Dioxide BUN Creatinine Glucose POC Glucose 124 H 131 H Calcium Ferritin Total Bilirubin Alkaline Phosphatase Lactate Dehydrogenase Total Creatine Kinase CK-MB (CK-2) Rel Index Troponin T C-Reactive Protein Total Protein Albumin Prealbumin LDL Cholesterol Direct HDL Cholesterol Arterial Blood Glucose Arterial Blood Ionized Calcium Urine WBC (Auto) 03/12/20 03/12/20 03/12/20 04:39 05:28 11:34 WBC RBC Hgb Hct MCV MCH RDW Plt Count Lymph % (Auto) [place] % (Auto) Eos % (Auto) Lymph # (Auto) [place] # (Auto) Eos # (Auto) Seg Neutrophils % Seg Neuts % (Manual) Lymphocytes % (Manual) Monocytes % (Manual) Basophils % (Manual) Seg Neutrophils # Seg Neutrophils # Man Lymphocytes # (Manual) Monocytes # (Manual) Eosinophils # (Manual) Basophils # (Manual) PT INR D-Dimer ABG pH POC ABG pCO2 POC ABG pO2 ABG pO2 ABG HCO3 ABG O2 Saturation ABG Base Excess ABG Hemoglobin ABG Oxyhemoglobin ABG Potassium ABG Glucose Oxyhemoglobin Carboxyhemoglobin Sodium 147 H Potassium Chloride Carbon Dioxide 40 H BUN Creatinine < 0.2 L Glucose 175 H POC Glucose 167 H 144 H Calcium Ferritin Total Bilirubin Alkaline Phosphatase Lactate Dehydrogenase Total Creatine Kinase CK-MB (CK-2) Rel Index Troponin T C-Reactive Protein Total Protein Albumin Prealbumin LDL Cholesterol Direct HDL Cholesterol Arterial Blood Glucose Arterial Blood Ionized Calcium Urine WBC (Auto) 03/12/20 03/12/20 03/13/20 17:32 23:57 05:57 WBC RBC Hgb Hct MCV MCH RDW Plt Count Lymph % (Auto) [place] % (Auto) Eos % (Auto) Lymph # (Auto) [place] # (Auto) Eos # (Auto) Seg Neutrophils % Seg Neuts % (Manual) Lymphocytes % (Manual) Monocytes % (Manual) Basophils % (Manual) Seg Neutrophils # Seg Neutrophils # Man Lymphocytes # (Manual) Monocytes # (Manual) Eosinophils # (Manual) Basophils # (Manual) PT INR D-Dimer ABG pH POC ABG pCO2 POC ABG pO2 ABG pO2 ABG HCO3 ABG O2 Saturation ABG Base Excess ABG Hemoglobin ABG Oxyhemoglobin ABG Potassium ABG Glucose Oxyhemoglobin Carboxyhemoglobin Sodium Potassium Chloride Carbon Dioxide BUN Creatinine Glucose POC Glucose 141 H 137 H 161 H Calcium Ferritin Total Bilirubin Alkaline Phosphatase Lactate Dehydrogenase Total Creatine Kinase CK-MB (CK-2) Rel Index Troponin T C-Reactive Protein Total Protein Albumin Prealbumin LDL Cholesterol Direct HDL Cholesterol Arterial Blood Glucose Arterial Blood Ionized Calcium Urine WBC (Auto) 03/13/20 03/13/20 03/13/20 12:28 14:14 18:39 WBC RBC Hgb Hct MCV MCH RDW Plt Count Lymph % (Auto) [place] % (Auto) Eos % (Auto) Lymph # (Auto) [place] # (Auto) Eos # (Auto) Seg Neutrophils % Seg Neuts % (Manual) Lymphocytes % (Manual) Monocytes % (Manual) Basophils % (Manual) Seg Neutrophils # Seg Neutrophils # Man Lymphocytes # (Manual) Monocytes # (Manual) Eosinophils # (Manual) Basophils # (Manual) PT INR D-Dimer ABG pH POC ABG pCO2 POC ABG pO2 ABG pO2 ABG HCO3 ABG O2 Saturation ABG Base Excess ABG Hemoglobin ABG Oxyhemoglobin ABG Potassium ABG Glucose Oxyhemoglobin Carboxyhemoglobin Sodium Potassium Chloride Carbon Dioxide 39 H BUN Creatinine < 0.2 L Glucose 129 H POC Glucose 130 H 125 H Calcium Ferritin Total Bilirubin Alkaline Phosphatase Lactate Dehydrogenase Total Creatine Kinase CK-MB (CK-2) Rel Index Troponin T C-Reactive Protein Total Protein Albumin Prealbumin LDL Cholesterol Direct HDL Cholesterol Arterial Blood Glucose Arterial Blood Ionized Calcium Urine WBC (Auto) 03/13/20 03/14/20 03/14/20 23:33 05:24 08:07 WBC 16.8 H RBC 2.81 L Hgb 7.9 L Hct 23.9 L MCV MCH RDW 15.9 H Plt Count Lymph % (Auto) [place] % (Auto) Eos % (Auto) Lymph # (Auto) [place] # (Auto) Eos # (Auto) Seg Neutrophils % Seg Neuts % (Manual) 84.0 H Lymphocytes % (Manual) 10.0 L Monocytes % (Manual) Basophils % (Manual) Seg Neutrophils # Seg Neutrophils # Man 14.1 H Lymphocytes # (Manual) Monocytes # (Manual) Eosinophils # (Manual) Basophils # (Manual) PT INR D-Dimer ABG pH POC ABG pCO2 POC ABG pO2 ABG pO2 ABG HCO3 ABG O2 Saturation ABG Base Excess ABG Hemoglobin ABG Oxyhemoglobin ABG Potassium ABG Glucose Oxyhemoglobin Carboxyhemoglobin Sodium Potassium Chloride Carbon Dioxide BUN Creatinine Glucose POC Glucose 146 H 125 H Calcium Ferritin Total Bilirubin Alkaline Phosphatase Lactate Dehydrogenase Total Creatine Kinase CK-MB (CK-2) Rel Index Troponin T C-Reactive Protein Total Protein Albumin Prealbumin LDL Cholesterol Direct HDL Cholesterol Arterial Blood Glucose Arterial Blood Ionized Calcium Urine WBC (Auto) 03/14/20 03/14/20 03/14/20 08:07 12:21 18:26 WBC RBC Hgb Hct MCV MCH RDW Plt Count Lymph % (Auto) [place] % (Auto) Eos % (Auto) Lymph # (Auto) [place] # (Auto) Eos # (Auto) Seg Neutrophils % Seg Neuts % (Manual) Lymphocytes % (Manual) Monocytes % (Manual) Basophils % (Manual) Seg Neutrophils # Seg Neutrophils # Man Lymphocytes # (Manual) Monocytes # (Manual) Eosinophils # (Manual) Basophils # (Manual) PT INR D-Dimer ABG pH POC ABG pCO2 POC ABG pO2 ABG pO2 ABG HCO3 ABG O2 Saturation ABG Base Excess ABG Hemoglobin ABG Oxyhemoglobin ABG Potassium ABG Glucose Oxyhemoglobin Carboxyhemoglobin Sodium Potassium Chloride 97.0 L Carbon Dioxide 37 H BUN Creatinine < 0.2 L Glucose 129 H POC Glucose 109 H 142 H Calcium 8.3 L Ferritin Total Bilirubin Alkaline Phosphatase Lactate Dehydrogenase Total Creatine Kinase CK-MB (CK-2) Rel Index Troponin T C-Reactive Protein Total Protein Albumin Prealbumin LDL Cholesterol Direct HDL Cholesterol Arterial Blood Glucose Arterial Blood Ionized Calcium Urine WBC (Auto) 03/14/20 03/15/20 03/15/20 23:57 05:46 08:06 WBC 19.7 H RBC 3.29 L Hgb 9.1 L Hct 28.0 L MCV MCH RDW 15.9 H Plt Count Lymph % (Auto) [place] % (Auto) Eos % (Auto) Lymph # (Auto) [place] # (Auto) Eos # (Auto) Seg Neutrophils % Seg Neuts % (Manual) Lymphocytes % (Manual) Monocytes % (Manual) Basophils % (Manual) Seg Neutrophils # Seg Neutrophils # Man Lymphocytes # (Manual) Monocytes # (Manual) Eosinophils # (Manual) Basophils # (Manual) PT INR D-Dimer ABG pH POC ABG pCO2 POC ABG pO2 ABG pO2 ABG HCO3 ABG O2 Saturation ABG Base Excess ABG Hemoglobin ABG Oxyhemoglobin ABG Potassium ABG Glucose Oxyhemoglobin Carboxyhemoglobin Sodium Potassium Chloride Carbon Dioxide BUN Creatinine Glucose POC Glucose 157 H 118 H Calcium Ferritin Total Bilirubin Alkaline Phosphatase Lactate Dehydrogenase Total Creatine Kinase CK-MB (CK-2) Rel Index Troponin T C-Reactive Protein Total Protein Albumin Prealbumin LDL Cholesterol Direct HDL Cholesterol Arterial Blood Glucose Arterial Blood Ionized Calcium Urine WBC (Auto) 03/15/20 03/15/20 03/15/20 08:06 12:44 18:09 WBC RBC Hgb Hct MCV MCH RDW Plt Count Lymph % (Auto) [place] % (Auto) Eos % (Auto) Lymph # (Auto) [place] # (Auto) Eos # (Auto) Seg Neutrophils % Seg Neuts % (Manual) Lymphocytes % (Manual) Monocytes % (Manual) Basophils % (Manual) Seg Neutrophils # Seg Neutrophils # Man Lymphocytes # (Manual) Monocytes # (Manual) Eosinophils # (Manual) Basophils # (Manual) PT INR D-Dimer ABG pH POC ABG pCO2 POC ABG pO2 ABG pO2 ABG HCO3 ABG O2 Saturation ABG Base Excess ABG Hemoglobin ABG Oxyhemoglobin ABG Potassium ABG Glucose Oxyhemoglobin Carboxyhemoglobin Sodium 136 L Potassium Chloride 93.6 L Carbon Dioxide 37 H BUN Creatinine < 0.2 L Glucose 132 H POC Glucose 151 H 164 H Calcium Ferritin Total Bilirubin Alkaline Phosphatase Lactate Dehydrogenase Total Creatine Kinase CK-MB (CK-2) Rel Index Troponin T C-Reactive Protein Total Protein Albumin Prealbumin LDL Cholesterol Direct HDL Cholesterol Arterial Blood Glucose Arterial Blood Ionized Calcium Urine WBC (Auto) 03/15/20 03/16/20 03/16/20 23:26 05:39 11:58 WBC RBC Hgb Hct MCV MCH RDW Plt Count Lymph % (Auto) [place] % (Auto) Eos % (Auto) Lymph # (Auto) [place] # (Auto) Eos # (Auto) Seg Neutrophils % Seg Neuts % (Manual) Lymphocytes % (Manual) Monocytes % (Manual) Basophils % (Manual) Seg Neutrophils # Seg Neutrophils # Man Lymphocytes # (Manual) Monocytes # (Manual) Eosinophils # (Manual) Basophils # (Manual) PT INR D-Dimer ABG pH POC ABG pCO2 POC ABG pO2 ABG pO2 ABG HCO3 ABG O2 Saturation ABG Base Excess ABG Hemoglobin ABG Oxyhemoglobin ABG Potassium ABG Glucose Oxyhemoglobin Carboxyhemoglobin Sodium Potassium Chloride Carbon Dioxide BUN Creatinine Glucose POC Glucose 136 H 116 H 109 H Calcium Ferritin Total Bilirubin Alkaline Phosphatase Lactate Dehydrogenase Total Creatine Kinase CK-MB (CK-2) Rel Index Troponin T C-Reactive Protein Total Protein Albumin Prealbumin LDL Cholesterol Direct HDL Cholesterol Arterial Blood Glucose Arterial Blood Ionized Calcium Urine WBC (Auto) 03/16/20 03/17/20 03/17/20 23:56 04:40 04:40 WBC 18.0 H RBC 3.33 L Hgb 9.5 L Hct 28.8 L MCV MCH RDW 16.4 H Plt Count 499 H Lymph % (Auto) [place] % (Auto) Eos % (Auto) Lymph # (Auto) [place] # (Auto) Eos # (Auto) Seg Neutrophils % Seg Neuts % (Manual) 82.0 H Lymphocytes % (Manual) 8.0 L Monocytes % (Manual) Basophils % (Manual) Seg Neutrophils # Seg Neutrophils # Man 14.8 H Lymphocytes # (Manual) Monocytes # (Manual) 1.3 H Eosinophils # (Manual) Basophils # (Manual) 0.2 H PT INR D-Dimer ABG pH POC ABG pCO2 POC ABG pO2 ABG pO2 ABG HCO3 ABG O2 Saturation ABG Base Excess ABG Hemoglobin ABG Oxyhemoglobin ABG Potassium ABG Glucose Oxyhemoglobin Carboxyhemoglobin Sodium Potassium Chloride 97.7 L Carbon Dioxide 32 H BUN Creatinine < 0.2 L Glucose 114 H POC Glucose 131 H Calcium Ferritin Total Bilirubin Alkaline Phosphatase Lactate Dehydrogenase Total Creatine Kinase CK-MB (CK-2) Rel Index Troponin T C-Reactive Protein Total Protein Albumin Prealbumin LDL Cholesterol Direct HDL Cholesterol Arterial Blood Glucose Arterial Blood Ionized Calcium Urine WBC (Auto) 03/18/20 03/18/20 03/18/20 00:21 05:21 11:55 WBC RBC Hgb Hct MCV MCH RDW Plt Count Lymph % (Auto) [place] % (Auto) Eos % (Auto) Lymph # (Auto) [place] # (Auto) Eos # (Auto) Seg Neutrophils % Seg Neuts % (Manual) Lymphocytes % (Manual) Monocytes % (Manual) Basophils % (Manual) Seg Neutrophils # Seg Neutrophils # Man Lymphocytes # (Manual) Monocytes # (Manual) Eosinophils # (Manual) Basophils # (Manual) PT INR D-Dimer ABG pH POC ABG pCO2 POC ABG pO2 ABG pO2 ABG HCO3 ABG O2 Saturation ABG Base Excess ABG Hemoglobin ABG Oxyhemoglobin ABG Potassium ABG Glucose Oxyhemoglobin Carboxyhemoglobin Sodium Potassium Chloride Carbon Dioxide BUN Creatinine Glucose POC Glucose 124 H 138 H 119 H Calcium Ferritin Total Bilirubin Alkaline Phosphatase Lactate Dehydrogenase Total Creatine Kinase CK-MB (CK-2) Rel Index Troponin T C-Reactive Protein Total Protein Albumin Prealbumin LDL Cholesterol Direct HDL Cholesterol Arterial Blood Glucose Arterial Blood Ionized Calcium Urine WBC (Auto) 03/18/20 03/18/20 03/19/20 17:03 23:58 05:24 WBC RBC Hgb Hct MCV MCH RDW Plt Count Lymph % (Auto) [place] % (Auto) Eos % (Auto) Lymph # (Auto) [place] # (Auto) Eos # (Auto) Seg Neutrophils % Seg Neuts % (Manual) Lymphocytes % (Manual) Monocytes % (Manual) Basophils % (Manual) Seg Neutrophils # Seg Neutrophils # Man Lymphocytes # (Manual) Monocytes # (Manual) Eosinophils # (Manual) Basophils # (Manual) PT INR D-Dimer ABG pH POC ABG pCO2 POC ABG pO2 ABG pO2 ABG HCO3 ABG O2 Saturation ABG Base Excess ABG Hemoglobin ABG Oxyhemoglobin ABG Potassium ABG Glucose Oxyhemoglobin Carboxyhemoglobin Sodium Potassium Chloride Carbon Dioxide BUN Creatinine Glucose POC Glucose 128 H 128 H 115 H Calcium Ferritin Total Bilirubin Alkaline Phosphatase Lactate Dehydrogenase Total Creatine Kinase CK-MB (CK-2) Rel Index Troponin T C-Reactive Protein Total Protein Albumin Prealbumin LDL Cholesterol Direct HDL Cholesterol Arterial Blood Glucose Arterial Blood Ionized Calcium Urine WBC (Auto) 03/19/20 03/19/20 03/19/20 08:05 08:05 11:56 WBC 16.8 H RBC 3.36 L Hgb 9.4 L Hct 28.8 L MCV MCH RDW 17.4 H Plt Count 567 H Lymph % (Auto) 7.8 L [place] % (Auto) Eos % (Auto) Lymph # (Auto) [place] # (Auto) 1.2 H Eos # (Auto) Seg Neutrophils % 83.5 H Seg Neuts % (Manual) Lymphocytes % (Manual) Monocytes % (Manual) Basophils % (Manual) Seg Neutrophils # 14.1 H Seg Neutrophils # Man Lymphocytes # (Manual) Monocytes # (Manual) Eosinophils # (Manual) Basophils # (Manual) PT INR D-Dimer ABG pH POC ABG pCO2 POC ABG pO2 ABG pO2 ABG HCO3 ABG O2 Saturation ABG Base Excess ABG Hemoglobin ABG Oxyhemoglobin ABG Potassium ABG Glucose Oxyhemoglobin Carboxyhemoglobin Sodium Potassium Chloride Carbon Dioxide 36 H BUN Creatinine < 0.2 L Glucose 135 H POC Glucose 128 H Calcium Ferritin Total Bilirubin Alkaline Phosphatase Lactate Dehydrogenase Total Creatine Kinase CK-MB (CK-2) Rel Index Troponin T C-Reactive Protein Total Protein Albumin Prealbumin LDL Cholesterol Direct HDL Cholesterol Arterial Blood Glucose Arterial Blood Ionized Calcium Urine WBC (Auto) 03/19/20 03/20/20 03/20/20 23:59 05:12 16:52 WBC RBC Hgb Hct MCV MCH RDW Plt Count Lymph % (Auto) [place] % (Auto) Eos % (Auto) Lymph # (Auto) [place] # (Auto) Eos # (Auto) Seg Neutrophils % Seg Neuts % (Manual) Lymphocytes % (Manual) Monocytes % (Manual) Basophils % (Manual) Seg Neutrophils # Seg Neutrophils # Man Lymphocytes # (Manual) Monocytes # (Manual) Eosinophils # (Manual) Basophils # (Manual) PT INR D-Dimer ABG pH POC ABG pCO2 POC ABG pO2 ABG pO2 ABG HCO3 ABG O2 Saturation ABG Base Excess ABG Hemoglobin ABG Oxyhemoglobin ABG Potassium ABG Glucose Oxyhemoglobin Carboxyhemoglobin Sodium Potassium Chloride Carbon Dioxide BUN Creatinine Glucose POC Glucose 120 H 131 H 124 H Calcium Ferritin Total Bilirubin Alkaline Phosphatase Lactate Dehydrogenase Total Creatine Kinase CK-MB (CK-2) Rel Index Troponin T C-Reactive Protein Total Protein Albumin Prealbumin LDL Cholesterol Direct HDL Cholesterol Arterial Blood Glucose Arterial Blood Ionized Calcium Urine WBC (Auto) 03/20/20 03/21/20 03/21/20 23:35 04:50 07:35 WBC 15.2 H RBC 3.39 L Hgb 9.4 L Hct 29.4 L MCV MCH RDW 17.6 H Plt Count 518 H Lymph % (Auto) [place] % (Auto) Eos % (Auto) Lymph # (Auto) [place] # (Auto) Eos # (Auto) Seg Neutrophils % Seg Neuts % (Manual) 83.0 H Lymphocytes % (Manual) 10.0 L Monocytes % (Manual) Basophils % (Manual) 2.0 H Seg Neutrophils # Seg Neutrophils # Man 12.6 H Lymphocytes # (Manual) Monocytes # (Manual) Eosinophils # (Manual) Basophils # (Manual) 0.3 H PT INR D-Dimer ABG pH POC ABG pCO2 POC ABG pO2 ABG pO2 ABG HCO3 ABG O2 Saturation ABG Base Excess ABG Hemoglobin ABG Oxyhemoglobin ABG Potassium ABG Glucose Oxyhemoglobin Carboxyhemoglobin Sodium Potassium Chloride Carbon Dioxide BUN Creatinine Glucose POC Glucose 125 H 127 H Calcium Ferritin Total Bilirubin Alkaline Phosphatase Lactate Dehydrogenase Total Creatine Kinase CK-MB (CK-2) Rel Index Troponin T C-Reactive Protein Total Protein Albumin Prealbumin LDL Cholesterol Direct HDL Cholesterol Arterial Blood Glucose Arterial Blood Ionized Calcium Urine WBC (Auto) 03/21/20 03/21/20 03/21/20 07:35 11:45 17:22 WBC RBC Hgb Hct MCV MCH RDW Plt Count Lymph % (Auto) [place] % (Auto) Eos % (Auto) Lymph # (Auto) [place] # (Auto) Eos # (Auto) Seg Neutrophils % Seg Neuts % (Manual) Lymphocytes % (Manual) Monocytes % (Manual) Basophils % (Manual) Seg Neutrophils # Seg Neutrophils # Man Lymphocytes # (Manual) Monocytes # (Manual) Eosinophils # (Manual) Basophils # (Manual) PT INR D-Dimer ABG pH POC ABG pCO2 POC ABG pO2 ABG pO2 ABG HCO3 ABG O2 Saturation ABG Base Excess ABG Hemoglobin ABG Oxyhemoglobin ABG Potassium ABG Glucose Oxyhemoglobin Carboxyhemoglobin Sodium 136 L Potassium Chloride 97.7 L Carbon Dioxide 32 H BUN Creatinine < 0.2 L Glucose 103 H POC Glucose 126 H 120 H Calcium Ferritin Total Bilirubin Alkaline Phosphatase Lactate Dehydrogenase Total Creatine Kinase CK-MB (CK-2) Rel Index Troponin T C-Reactive Protein Total Protein Albumin Prealbumin LDL Cholesterol Direct HDL Cholesterol Arterial Blood Glucose Arterial Blood Ionized Calcium Urine WBC (Auto) 03/22/20 03/22/20 03/22/20 05:09 06:34 06:34 WBC 17.5 H RBC 3.52 L Hgb 10.0 L Hct 30.7 L MCV MCH RDW 17.5 H Plt Count 499 H Lymph % (Auto) [place] % (Auto) Eos % (Auto) Lymph # (Auto) [place] # (Auto) Eos # (Auto) Seg Neutrophils % Seg Neuts % (Manual) 80.0 H Lymphocytes % (Manual) 10.0 L Monocytes % (Manual) Basophils % (Manual) Seg Neutrophils # Seg Neutrophils # Man 14.0 H Lymphocytes # (Manual) Monocytes # (Manual) Eosinophils # (Manual) Basophils # (Manual) PT INR D-Dimer ABG pH POC ABG pCO2 POC ABG pO2 ABG pO2 ABG HCO3 ABG O2 Saturation ABG Base Excess ABG Hemoglobin ABG Oxyhemoglobin ABG Potassium ABG Glucose Oxyhemoglobin Carboxyhemoglobin Sodium Potassium Chloride 96.6 L Carbon Dioxide 38 H BUN Creatinine < 0.2 L Glucose 139 H POC Glucose 125 H Calcium Ferritin Total Bilirubin Alkaline Phosphatase Lactate Dehydrogenase Total Creatine Kinase CK-MB (CK-2) Rel Index Troponin T C-Reactive Protein Total Protein Albumin Prealbumin LDL Cholesterol Direct HDL Cholesterol Arterial Blood Glucose Arterial Blood Ionized Calcium Urine WBC (Auto) 03/22/20 03/22/20 03/22/20 11:45 18:00 23:32 WBC RBC Hgb Hct MCV MCH RDW Plt Count Lymph % (Auto) [place] % (Auto) Eos % (Auto) Lymph # (Auto) [place] # (Auto) Eos # (Auto) Seg Neutrophils % Seg Neuts % (Manual) Lymphocytes % (Manual) Monocytes % (Manual) Basophils % (Manual) Seg Neutrophils # Seg Neutrophils # Man Lymphocytes # (Manual) Monocytes # (Manual) Eosinophils # (Manual) Basophils # (Manual) PT INR D-Dimer ABG pH POC ABG pCO2 POC ABG pO2 ABG pO2 ABG HCO3 ABG O2 Saturation ABG Base Excess ABG Hemoglobin ABG Oxyhemoglobin ABG Potassium ABG Glucose Oxyhemoglobin Carboxyhemoglobin Sodium Potassium Chloride Carbon Dioxide BUN Creatinine Glucose POC Glucose 135 H 133 H Calcium Ferritin Total Bilirubin Alkaline Phosphatase Lactate Dehydrogenase Total Creatine Kinase CK-MB (CK-2) Rel Index Troponin T 0.113 H* C-Reactive Protein Total Protein Albumin Prealbumin LDL Cholesterol Direct HDL Cholesterol Arterial Blood Glucose Arterial Blood Ionized Calcium Urine WBC (Auto) 03/23/20 03/23/20 03/23/20 01:47 06:21 07:57 WBC RBC Hgb Hct MCV MCH RDW Plt Count Lymph % (Auto) [place] % (Auto) Eos % (Auto) Lymph # (Auto) [place] # (Auto) Eos # (Auto) Seg Neutrophils % Seg Neuts % (Manual) Lymphocytes % (Manual) Monocytes % (Manual) Basophils % (Manual) Seg Neutrophils # Seg Neutrophils # Man Lymphocytes # (Manual) Monocytes # (Manual) Eosinophils # (Manual) Basophils # (Manual) PT INR D-Dimer ABG pH POC ABG pCO2 POC ABG pO2 ABG pO2 ABG HCO3 ABG O2 Saturation ABG Base Excess ABG Hemoglobin ABG Oxyhemoglobin ABG Potassium ABG Glucose Oxyhemoglobin Carboxyhemoglobin Sodium Potassium Chloride Carbon Dioxide BUN Creatinine Glucose POC Glucose 130 H Calcium Ferritin Total Bilirubin Alkaline Phosphatase Lactate Dehydrogenase Total Creatine Kinase CK-MB (CK-2) Rel Index Troponin T 0.143 H* D 0.105 H* D C-Reactive Protein Total Protein Albumin Prealbumin LDL Cholesterol Direct HDL Cholesterol Arterial Blood Glucose Arterial Blood Ionized Calcium Urine WBC (Auto) 03/23/20 03/24/20 03/24/20 12:02 05:33 07:15 WBC 18.0 H RBC Hgb 11.0 L Hct 34.0 L MCV MCH RDW 17.4 H Plt Count 520 H Lymph % (Auto) [place] % (Auto) Eos % (Auto) Lymph # (Auto) [place] # (Auto) Eos # (Auto) Seg Neutrophils % Seg Neuts % (Manual) 88.0 H Lymphocytes % (Manual) 7.0 L Monocytes % (Manual) Basophils % (Manual) Seg Neutrophils # Seg Neutrophils # Man 15.8 H Lymphocytes # (Manual) Monocytes # (Manual) Eosinophils # (Manual) Basophils # (Manual) PT INR D-Dimer ABG pH POC ABG pCO2 POC ABG pO2 ABG pO2 ABG HCO3 ABG O2 Saturation ABG Base Excess ABG Hemoglobin ABG Oxyhemoglobin ABG Potassium ABG Glucose Oxyhemoglobin Carboxyhemoglobin Sodium Potassium Chloride Carbon Dioxide BUN Creatinine Glucose POC Glucose 137 H 112 H Calcium Ferritin Total Bilirubin Alkaline Phosphatase Lactate Dehydrogenase Total Creatine Kinase CK-MB (CK-2) Rel Index Troponin T C-Reactive Protein Total Protein Albumin Prealbumin LDL Cholesterol Direct HDL Cholesterol Arterial Blood Glucose Arterial Blood Ionized Calcium Urine WBC (Auto) 03/24/20 03/24/20 03/24/20 07:15 11:22 23:30 WBC RBC Hgb Hct MCV MCH RDW Plt Count Lymph % (Auto) [place] % (Auto) Eos % (Auto) Lymph # (Auto) [place] # (Auto) Eos # (Auto) Seg Neutrophils % Seg Neuts % (Manual) Lymphocytes % (Manual) Monocytes % (Manual) Basophils % (Manual) Seg Neutrophils # Seg Neutrophils # Man Lymphocytes # (Manual) Monocytes # (Manual) Eosinophils # (Manual) Basophils # (Manual) PT INR D-Dimer ABG pH POC ABG pCO2 POC ABG pO2 ABG pO2 ABG HCO3 ABG O2 Saturation ABG Base Excess ABG Hemoglobin ABG Oxyhemoglobin ABG Potassium ABG Glucose Oxyhemoglobin Carboxyhemoglobin Sodium Potassium Chloride 96.6 L Carbon Dioxide 38 H BUN Creatinine < 0.2 L Glucose 141 H POC Glucose 130 H 120 H Calcium Ferritin Total Bilirubin Alkaline Phosphatase Lactate Dehydrogenase Total Creatine Kinase CK-MB (CK-2) Rel Index Troponin T C-Reactive Protein Total Protein Albumin Prealbumin LDL Cholesterol Direct HDL Cholesterol Arterial Blood Glucose Arterial Blood Ionized Calcium Urine WBC (Auto) 03/25/20 03/25/20 03/25/20 05:48 17:53 23:18 WBC RBC Hgb Hct MCV MCH RDW Plt Count Lymph % (Auto) [place] % (Auto) Eos % (Auto) Lymph # (Auto) [place] # (Auto) Eos # (Auto) Seg Neutrophils % Seg Neuts % (Manual) Lymphocytes % (Manual) Monocytes % (Manual) Basophils % (Manual) Seg Neutrophils # Seg Neutrophils # Man Lymphocytes # (Manual) Monocytes # (Manual) Eosinophils # (Manual) Basophils # (Manual) PT INR D-Dimer ABG pH POC ABG pCO2 POC ABG pO2 ABG pO2 ABG HCO3 ABG O2 Saturation ABG Base Excess ABG Hemoglobin ABG Oxyhemoglobin ABG Potassium ABG Glucose Oxyhemoglobin Carboxyhemoglobin Sodium Potassium Chloride Carbon Dioxide BUN Creatinine Glucose POC Glucose 124 H 109 H 131 H Calcium Ferritin Total Bilirubin Alkaline Phosphatase Lactate Dehydrogenase Total Creatine Kinase CK-MB (CK-2) Rel Index Troponin T C-Reactive Protein Total Protein Albumin Prealbumin LDL Cholesterol Direct HDL Cholesterol Arterial Blood Glucose Arterial Blood Ionized Calcium Urine WBC (Auto) 03/26/20 03/26/20 03/26/20 05:21 08:49 08:49 WBC 19.7 H RBC Hgb 10.7 L Hct 33.5 L MCV MCH 27 L RDW 17.1 H Plt Count 480 H Lymph % (Auto) 5.7 L [place] % (Auto) Eos % (Auto) Lymph # (Auto) 1.1 L [place] # (Auto) 1.2 H Eos # (Auto) Seg Neutrophils % 87.7 H Seg Neuts % (Manual) Lymphocytes % (Manual) Monocytes % (Manual) Basophils % (Manual) Seg Neutrophils # 17.2 H Seg Neutrophils # Man Lymphocytes # (Manual) Monocytes # (Manual) Eosinophils # (Manual) Basophils # (Manual) PT INR D-Dimer ABG pH POC ABG pCO2 POC ABG pO2 ABG pO2 ABG HCO3 ABG O2 Saturation ABG Base Excess ABG Hemoglobin ABG Oxyhemoglobin ABG Potassium ABG Glucose Oxyhemoglobin Carboxyhemoglobin Sodium Potassium Chloride 97.2 L Carbon Dioxide 36 H BUN Creatinine < 0.2 L Glucose 127 H POC Glucose 116 H Calcium Ferritin Total Bilirubin Alkaline Phosphatase Lactate Dehydrogenase Total Creatine Kinase CK-MB (CK-2) Rel Index Troponin T C-Reactive Protein Total Protein Albumin Prealbumin LDL Cholesterol Direct HDL Cholesterol Arterial Blood Glucose Arterial Blood Ionized Calcium Urine WBC (Auto) 03/26/20 03/26/20 03/26/20 11:38 18:44 23:06 WBC RBC Hgb Hct MCV MCH RDW Plt Count Lymph % (Auto) [place] % (Auto) Eos % (Auto) Lymph # (Auto) [place] # (Auto) Eos # (Auto) Seg Neutrophils % Seg Neuts % (Manual) Lymphocytes % (Manual) Monocytes % (Manual) Basophils % (Manual) Seg Neutrophils # Seg Neutrophils # Man Lymphocytes # (Manual) Monocytes # (Manual) Eosinophils # (Manual) Basophils # (Manual) PT INR D-Dimer ABG pH POC ABG pCO2 POC ABG pO2 ABG pO2 ABG HCO3 ABG O2 Saturation ABG Base Excess ABG Hemoglobin ABG Oxyhemoglobin ABG Potassium ABG Glucose Oxyhemoglobin Carboxyhemoglobin Sodium Potassium Chloride Carbon Dioxide BUN Creatinine Glucose POC Glucose 120 H 111 H 134 H Calcium Ferritin Total Bilirubin Alkaline Phosphatase Lactate Dehydrogenase Total Creatine Kinase CK-MB (CK-2) Rel Index Troponin T C-Reactive Protein Total Protein Albumin Prealbumin LDL Cholesterol Direct HDL Cholesterol Arterial Blood Glucose Arterial Blood Ionized Calcium Urine WBC (Auto) 03/27/20 03/27/20 03/27/20 05:41 05:59 05:59 WBC 18.6 H RBC Hgb 10.1 L Hct 31.4 L MCV MCH RDW 17.2 H Plt Count Lymph % (Auto) 8.0 L [place] % (Auto) Eos % (Auto) Lymph # (Auto) [place] # (Auto) 1.2 H Eos # (Auto) Seg Neutrophils % 84.7 H Seg Neuts % (Manual) Lymphocytes % (Manual) Monocytes % (Manual) Basophils % (Manual) Seg Neutrophils # 15.8 H Seg Neutrophils # Man Lymphocytes # (Manual) Monocytes # (Manual) Eosinophils # (Manual) Basophils # (Manual) PT INR D-Dimer ABG pH POC ABG pCO2 POC ABG pO2 ABG pO2 ABG HCO3 ABG O2 Saturation ABG Base Excess ABG Hemoglobin ABG Oxyhemoglobin ABG Potassium ABG Glucose Oxyhemoglobin Carboxyhemoglobin Sodium Potassium Chloride Carbon Dioxide 34 H BUN Creatinine < 0.2 L Glucose 127 H POC Glucose 129 H Calcium Ferritin Total Bilirubin Alkaline Phosphatase Lactate Dehydrogenase Total Creatine Kinase CK-MB (CK-2) Rel Index Troponin T C-Reactive Protein Total Protein Albumin Prealbumin LDL Cholesterol Direct HDL Cholesterol Arterial Blood Glucose Arterial Blood Ionized Calcium Urine WBC (Auto) 03/27/20 03/27/20 03/28/20 17:28 23:22 05:23 WBC RBC Hgb Hct MCV MCH RDW Plt Count Lymph % (Auto) [place] % (Auto) Eos % (Auto) Lymph # (Auto) [place] # (Auto) Eos # (Auto) Seg Neutrophils % Seg Neuts % (Manual) Lymphocytes % (Manual) Monocytes % (Manual) Basophils % (Manual) Seg Neutrophils # Seg Neutrophils # Man Lymphocytes # (Manual) Monocytes # (Manual) Eosinophils # (Manual) Basophils # (Manual) PT INR D-Dimer ABG pH POC ABG pCO2 POC ABG pO2 ABG pO2 ABG HCO3 ABG O2 Saturation ABG Base Excess ABG Hemoglobin ABG Oxyhemoglobin ABG Potassium ABG Glucose Oxyhemoglobin Carboxyhemoglobin Sodium Potassium Chloride Carbon Dioxide BUN Creatinine Glucose POC Glucose 108 H 119 H 129 H Calcium Ferritin Total Bilirubin Alkaline Phosphatase Lactate Dehydrogenase Total Creatine Kinase CK-MB (CK-2) Rel Index Troponin T C-Reactive Protein Total Protein Albumin Prealbumin LDL Cholesterol Direct HDL Cholesterol Arterial Blood Glucose Arterial Blood Ionized Calcium Urine WBC (Auto) 03/28/20 03/28/20 03/28/20 10:28 10:28 11:36 WBC 23.6 H RBC 3.62 L Hgb 10.0 L Hct 30.8 L MCV MCH RDW 16.4 H Plt Count Lymph % (Auto) [place] % (Auto) Eos % (Auto) Lymph # (Auto) [place] # (Auto) Eos # (Auto) Seg Neutrophils % Seg Neuts % (Manual) 89.0 H Lymphocytes % (Manual) 5.0 L Monocytes % (Manual) Basophils % (Manual) Seg Neutrophils # Seg Neutrophils # Man 21.0 H Lymphocytes # (Manual) Monocytes # (Manual) 1.2 H Eosinophils # (Manual) Basophils # (Manual) 0.2 H PT INR D-Dimer ABG pH POC ABG pCO2 POC ABG pO2 ABG pO2 ABG HCO3 ABG O2 Saturation ABG Base Excess ABG Hemoglobin ABG Oxyhemoglobin ABG Potassium ABG Glucose Oxyhemoglobin Carboxyhemoglobin Sodium 134 L Potassium Chloride 94.2 L Carbon Dioxide 35 H BUN Creatinine < 0.2 L Glucose 134 H POC Glucose Calcium Ferritin Total Bilirubin Alkaline Phosphatase Lactate Dehydrogenase Total Creatine Kinase CK-MB (CK-2) Rel Index Troponin T C-Reactive Protein Total Protein Albumin Prealbumin LDL Cholesterol Direct HDL Cholesterol Arterial Blood Glucose Arterial Blood Ionized Calcium Urine WBC (Auto) 39.0 H 03/28/20 03/28/20 03/28/20 11:51 17:08 17:17 WBC RBC Hgb Hct MCV MCH RDW Plt Count Lymph % (Auto) [place] % (Auto) Eos % (Auto) Lymph # (Auto) [place] # (Auto) Eos # (Auto) Seg Neutrophils % Seg Neuts % (Manual) Lymphocytes % (Manual) Monocytes % (Manual) Basophils % (Manual) Seg Neutrophils # Seg Neutrophils # Man Lymphocytes # (Manual) Monocytes # (Manual) Eosinophils # (Manual) Basophils # (Manual) PT INR D-Dimer ABG pH POC ABG pCO2 POC ABG pO2 ABG pO2 ABG HCO3 ABG O2 Saturation ABG Base Excess ABG Hemoglobin ABG Oxyhemoglobin ABG Potassium ABG Glucose Oxyhemoglobin Carboxyhemoglobin Sodium Potassium Chloride Carbon Dioxide BUN Creatinine Glucose POC Glucose 123 H 112 H Calcium Ferritin Total Bilirubin Alkaline Phosphatase Lactate Dehydrogenase Total Creatine Kinase 47 L CK-MB (CK-2) Rel Index 4.6 H Troponin T 0.090 H C-Reactive Protein Total Protein Albumin Prealbumin LDL Cholesterol Direct HDL Cholesterol Arterial Blood Glucose Arterial Blood Ionized Calcium Urine WBC (Auto) 03/28/20 03/29/20 03/29/20 23:22 05:22 10:58 WBC RBC Hgb Hct MCV MCH RDW Plt Count Lymph % (Auto) [place] % (Auto) Eos % (Auto) Lymph # (Auto) [place] # (Auto) Eos # (Auto) Seg Neutrophils % Seg Neuts % (Manual) Lymphocytes % (Manual) Monocytes % (Manual) Basophils % (Manual) Seg Neutrophils # Seg Neutrophils # Man Lymphocytes # (Manual) Monocytes # (Manual) Eosinophils # (Manual) Basophils # (Manual) PT INR D-Dimer ABG pH POC ABG pCO2 POC ABG pO2 ABG pO2 ABG HCO3 ABG O2 Saturation ABG Base Excess ABG Hemoglobin ABG Oxyhemoglobin ABG Potassium ABG Glucose Oxyhemoglobin Carboxyhemoglobin Sodium Potassium Chloride Carbon Dioxide BUN Creatinine Glucose POC Glucose 122 H 116 H 133 H Calcium Ferritin Total Bilirubin Alkaline Phosphatase Lactate Dehydrogenase Total Creatine Kinase CK-MB (CK-2) Rel Index Troponin T C-Reactive Protein Total Protein Albumin Prealbumin LDL Cholesterol Direct HDL Cholesterol Arterial Blood Glucose Arterial Blood Ionized Calcium Urine WBC (Auto) 03/29/20 03/29/20 03/30/20 17:18 23:14 04:57 WBC RBC Hgb Hct MCV MCH RDW Plt Count Lymph % (Auto) [place] % (Auto) Eos % (Auto) Lymph # (Auto) [place] # (Auto) Eos # (Auto) Seg Neutrophils % Seg Neuts % (Manual) Lymphocytes % (Manual) Monocytes % (Manual) Basophils % (Manual) Seg Neutrophils # Seg Neutrophils # Man Lymphocytes # (Manual) Monocytes # (Manual) Eosinophils # (Manual) Basophils # (Manual) PT INR D-Dimer ABG pH POC ABG pCO2 POC ABG pO2 ABG pO2 ABG HCO3 ABG O2 Saturation ABG Base Excess ABG Hemoglobin ABG Oxyhemoglobin ABG Potassium ABG Glucose Oxyhemoglobin Carboxyhemoglobin Sodium Potassium Chloride Carbon Dioxide BUN Creatinine Glucose POC Glucose 111 H 114 H 130 H Calcium Ferritin Total Bilirubin Alkaline Phosphatase Lactate Dehydrogenase Total Creatine Kinase CK-MB (CK-2) Rel Index Troponin T C-Reactive Protein Total Protein Albumin Prealbumin LDL Cholesterol Direct HDL Cholesterol Arterial Blood Glucose Arterial Blood Ionized Calcium Urine WBC (Auto) 03/30/20 03/30/20 03/30/20 11:38 14:47 14:47 WBC 19.9 H RBC Hgb 10.9 L Hct 34.4 L MCV MCH 27 L RDW 16.5 H Plt Count 441 H Lymph % (Auto) 6.4 L [place] % (Auto) Eos % (Auto) Lymph # (Auto) [place] # (Auto) 1.4 H Eos # (Auto) Seg Neutrophils % 86.1 H Seg Neuts % (Manual) Lymphocytes % (Manual) Monocytes % (Manual) Basophils % (Manual) Seg Neutrophils # 17.1 H Seg Neutrophils # Man Lymphocytes # (Manual) Monocytes # (Manual) Eosinophils # (Manual) Basophils # (Manual) PT INR D-Dimer ABG pH POC ABG pCO2 POC ABG pO2 ABG pO2 ABG HCO3 ABG O2 Saturation ABG Base Excess ABG Hemoglobin ABG Oxyhemoglobin ABG Potassium ABG Glucose Oxyhemoglobin Carboxyhemoglobin Sodium 133 L Potassium Chloride 94.6 L Carbon Dioxide 33 H BUN Creatinine < 0.2 L Glucose 194 H POC Glucose 139 H Calcium Ferritin Total Bilirubin Alkaline Phosphatase Lactate Dehydrogenase Total Creatine Kinase CK-MB (CK-2) Rel Index Troponin T C-Reactive Protein Total Protein Albumin 2.8 L Prealbumin LDL Cholesterol Direct HDL Cholesterol Arterial Blood Glucose Arterial Blood Ionized Calcium Urine WBC (Auto) 03/30/20 03/31/20 03/31/20 17:07 05:02 15:21 WBC RBC Hgb Hct MCV MCH RDW Plt Count Lymph % (Auto) [place] % (Auto) Eos % (Auto) Lymph # (Auto) [place] # (Auto) Eos # (Auto) Seg Neutrophils % Seg Neuts % (Manual) Lymphocytes % (Manual) Monocytes % (Manual) Basophils % (Manual) Seg Neutrophils # Seg Neutrophils # Man Lymphocytes # (Manual) Monocytes # (Manual) Eosinophils # (Manual) Basophils # (Manual) PT INR D-Dimer ABG pH POC ABG pCO2 POC ABG pO2 ABG pO2 ABG HCO3 ABG O2 Saturation ABG Base Excess ABG Hemoglobin ABG Oxyhemoglobin ABG Potassium ABG Glucose Oxyhemoglobin Carboxyhemoglobin Sodium Potassium Chloride Carbon Dioxide BUN Creatinine Glucose POC Glucose 163 H 108 H 110 H Calcium Ferritin Total Bilirubin Alkaline Phosphatase Lactate Dehydrogenase Total Creatine Kinase CK-MB (CK-2) Rel Index Troponin T C-Reactive Protein Total Protein Albumin Prealbumin LDL Cholesterol Direct HDL Cholesterol Arterial Blood Glucose Arterial Blood Ionized Calcium Urine WBC (Auto) 03/31/20 03/31/20 04/01/20 17:58 23:19 05:09 WBC RBC Hgb Hct MCV MCH RDW Plt Count Lymph % (Auto) [place] % (Auto) Eos % (Auto) Lymph # (Auto) [place] # (Auto) Eos # (Auto) Seg Neutrophils % Seg Neuts % (Manual) Lymphocytes % (Manual) Monocytes % (Manual) Basophils % (Manual) Seg Neutrophils # Seg Neutrophils # Man Lymphocytes # (Manual) Monocytes # (Manual) Eosinophils # (Manual) Basophils # (Manual) PT INR D-Dimer ABG pH POC ABG pCO2 POC ABG pO2 ABG pO2 ABG HCO3 ABG O2 Saturation ABG Base Excess ABG Hemoglobin ABG Oxyhemoglobin ABG Potassium ABG Glucose Oxyhemoglobin Carboxyhemoglobin Sodium Potassium Chloride Carbon Dioxide BUN Creatinine Glucose POC Glucose 110 H 131 H 124 H Calcium Ferritin Total Bilirubin Alkaline Phosphatase Lactate Dehydrogenase Total Creatine Kinase CK-MB (CK-2) Rel Index Troponin T C-Reactive Protein Total Protein Albumin Prealbumin LDL Cholesterol Direct HDL Cholesterol Arterial Blood Glucose Arterial Blood Ionized Calcium Urine WBC (Auto) 04/01/20 04/01/20 04/01/20 11:50 17:01 23:21 WBC RBC Hgb Hct MCV MCH RDW Plt Count Lymph % (Auto) [place] % (Auto) Eos % (Auto) Lymph # (Auto) [place] # (Auto) Eos # (Auto) Seg Neutrophils % Seg Neuts % (Manual) Lymphocytes % (Manual) Monocytes % (Manual) Basophils % (Manual) Seg Neutrophils # Seg Neutrophils # Man Lymphocytes # (Manual) Monocytes # (Manual) Eosinophils # (Manual) Basophils # (Manual) PT INR D-Dimer ABG pH POC ABG pCO2 POC ABG pO2 ABG pO2 ABG HCO3 ABG O2 Saturation ABG Base Excess ABG Hemoglobin ABG Oxyhemoglobin ABG Potassium ABG Glucose Oxyhemoglobin Carboxyhemoglobin Sodium Potassium Chloride Carbon Dioxide BUN Creatinine Glucose POC Glucose 136 H 115 H 124 H Calcium Ferritin Total Bilirubin Alkaline Phosphatase Lactate Dehydrogenase Total Creatine Kinase CK-MB (CK-2) Rel Index Troponin T C-Reactive Protein Total Protein Albumin Prealbumin LDL Cholesterol Direct HDL Cholesterol Arterial Blood Glucose Arterial Blood Ionized Calcium Urine WBC (Auto) 04/02/20 04/02/20 04/02/20 05:27 11:58 17:58 WBC RBC Hgb Hct MCV MCH RDW Plt Count Lymph % (Auto) [place] % (Auto) Eos % (Auto) Lymph # (Auto) [place] # (Auto) Eos # (Auto) Seg Neutrophils % Seg Neuts % (Manual) Lymphocytes % (Manual) Monocytes % (Manual) Basophils % (Manual) Seg Neutrophils # Seg Neutrophils # Man Lymphocytes # (Manual) Monocytes # (Manual) Eosinophils # (Manual) Basophils # (Manual) PT INR D-Dimer ABG pH POC ABG pCO2 POC ABG pO2 ABG pO2 ABG HCO3 ABG O2 Saturation ABG Base Excess ABG Hemoglobin ABG Oxyhemoglobin ABG Potassium ABG Glucose Oxyhemoglobin Carboxyhemoglobin Sodium Potassium Chloride Carbon Dioxide BUN Creatinine Glucose POC Glucose 117 H 133 H 122 H Calcium Ferritin Total Bilirubin Alkaline Phosphatase Lactate Dehydrogenase Total Creatine Kinase CK-MB (CK-2) Rel Index Troponin T C-Reactive Protein Total Protein Albumin Prealbumin LDL Cholesterol Direct HDL Cholesterol Arterial Blood Glucose Arterial Blood Ionized Calcium Urine WBC (Auto) 04/02/20 04/03/20 04/03/20 23:12 05:11 11:11 WBC RBC Hgb Hct MCV MCH RDW Plt Count Lymph % (Auto) [place] % (Auto) Eos % (Auto) Lymph # (Auto) [place] # (Auto) Eos # (Auto) Seg Neutrophils % Seg Neuts % (Manual) Lymphocytes % (Manual) Monocytes % (Manual) Basophils % (Manual) Seg Neutrophils # Seg Neutrophils # Man Lymphocytes # (Manual) Monocytes # (Manual) Eosinophils # (Manual) Basophils # (Manual) PT INR D-Dimer ABG pH POC ABG pCO2 POC ABG pO2 ABG pO2 ABG HCO3 ABG O2 Saturation ABG Base Excess ABG Hemoglobin ABG Oxyhemoglobin ABG Potassium ABG Glucose Oxyhemoglobin Carboxyhemoglobin Sodium Potassium Chloride Carbon Dioxide BUN Creatinine Glucose POC Glucose 130 H 139 H 136 H Calcium Ferritin Total Bilirubin Alkaline Phosphatase Lactate Dehydrogenase Total Creatine Kinase CK-MB (CK-2) Rel Index Troponin T C-Reactive Protein Total Protein Albumin Prealbumin LDL Cholesterol Direct HDL Cholesterol Arterial Blood Glucose Arterial Blood Ionized Calcium Urine WBC (Auto) 04/03/20 04/03/20 04/04/20 16:51 23:25 05:29 WBC RBC Hgb Hct MCV MCH RDW Plt Count Lymph % (Auto) [place] % (Auto) Eos % (Auto) Lymph # (Auto) [place] # (Auto) Eos # (Auto) Seg Neutrophils % Seg Neuts % (Manual) Lymphocytes % (Manual) Monocytes % (Manual) Basophils % (Manual) Seg Neutrophils # Seg Neutrophils # Man Lymphocytes # (Manual) Monocytes # (Manual) Eosinophils # (Manual) Basophils # (Manual) PT INR D-Dimer ABG pH POC ABG pCO2 POC ABG pO2 ABG pO2 ABG HCO3 ABG O2 Saturation ABG Base Excess ABG Hemoglobin ABG Oxyhemoglobin ABG Potassium ABG Glucose Oxyhemoglobin Carboxyhemoglobin Sodium Potassium Chloride Carbon Dioxide BUN Creatinine Glucose POC Glucose 118 H 111 H 126 H Calcium Ferritin Total Bilirubin Alkaline Phosphatase Lactate Dehydrogenase Total Creatine Kinase CK-MB (CK-2) Rel Index Troponin T C-Reactive Protein Total Protein Albumin Prealbumin LDL Cholesterol Direct HDL Cholesterol Arterial Blood Glucose Arterial Blood Ionized Calcium Urine WBC (Auto) 04/04/20 04/04/20 04/04/20 11:47 17:41 23:05 WBC RBC Hgb Hct MCV MCH RDW Plt Count Lymph % (Auto) [place] % (Auto) Eos % (Auto) Lymph # (Auto) [place] # (Auto) Eos # (Auto) Seg Neutrophils % Seg Neuts % (Manual) Lymphocytes % (Manual) Monocytes % (Manual) Basophils % (Manual) Seg Neutrophils # Seg Neutrophils # Man Lymphocytes # (Manual) Monocytes # (Manual) Eosinophils # (Manual) Basophils # (Manual) PT INR D-Dimer ABG pH POC ABG pCO2 POC ABG pO2 ABG pO2 ABG HCO3 ABG O2 Saturation ABG Base Excess ABG Hemoglobin ABG Oxyhemoglobin ABG Potassium ABG Glucose Oxyhemoglobin Carboxyhemoglobin Sodium Potassium Chloride Carbon Dioxide BUN Creatinine Glucose POC Glucose 123 H 120 H 119 H Calcium Ferritin Total Bilirubin Alkaline Phosphatase Lactate Dehydrogenase Total Creatine Kinase CK-MB (CK-2) Rel Index Troponin T C-Reactive Protein Total Protein Albumin Prealbumin LDL Cholesterol Direct HDL Cholesterol Arterial Blood Glucose Arterial Blood Ionized Calcium Urine WBC (Auto) 04/05/20 04/05/20 04/05/20 05:14 12:16 18:48 WBC RBC Hgb Hct MCV MCH RDW Plt Count Lymph % (Auto) [place] % (Auto) Eos % (Auto) Lymph # (Auto) [place] # (Auto) Eos # (Auto) Seg Neutrophils % Seg Neuts % (Manual) Lymphocytes % (Manual) Monocytes % (Manual) Basophils % (Manual) Seg Neutrophils # Seg Neutrophils # Man Lymphocytes # (Manual) Monocytes # (Manual) Eosinophils # (Manual) Basophils # (Manual) PT INR D-Dimer ABG pH POC ABG pCO2 POC ABG pO2 ABG pO2 ABG HCO3 ABG O2 Saturation ABG Base Excess ABG Hemoglobin ABG Oxyhemoglobin ABG Potassium ABG Glucose Oxyhemoglobin Carboxyhemoglobin Sodium Potassium Chloride Carbon Dioxide BUN Creatinine Glucose POC Glucose 123 H 148 H 106 H Calcium Ferritin Total Bilirubin Alkaline Phosphatase Lactate Dehydrogenase Total Creatine Kinase CK-MB (CK-2) Rel Index Troponin T C-Reactive Protein Total Protein Albumin Prealbumin LDL Cholesterol Direct HDL Cholesterol Arterial Blood Glucose Arterial Blood Ionized Calcium Urine WBC (Auto) 04/06/20 04/06/20 04/06/20 00:47 03:26 08:24 WBC RBC Hgb Hct MCV MCH RDW Plt Count Lymph % (Auto) [place] % (Auto) Eos % (Auto) Lymph # (Auto) [place] # (Auto) Eos # (Auto) Seg Neutrophils % Seg Neuts % (Manual) Lymphocytes % (Manual) Monocytes % (Manual) Basophils % (Manual) Seg Neutrophils # Seg Neutrophils # Man Lymphocytes # (Manual) Monocytes # (Manual) Eosinophils # (Manual) Basophils # (Manual) PT INR D-Dimer ABG pH POC ABG pCO2 POC ABG pO2 ABG pO2 ABG HCO3 ABG O2 Saturation ABG Base Excess ABG Hemoglobin ABG Oxyhemoglobin ABG Potassium ABG Glucose Oxyhemoglobin Carboxyhemoglobin Sodium Potassium Chloride Carbon Dioxide BUN Creatinine Glucose POC Glucose 129 H 134 H 131 H Calcium Ferritin Total Bilirubin Alkaline Phosphatase Lactate Dehydrogenase Total Creatine Kinase CK-MB (CK-2) Rel Index Troponin T C-Reactive Protein Total Protein Albumin Prealbumin LDL Cholesterol Direct HDL Cholesterol Arterial Blood Glucose Arterial Blood Ionized Calcium Urine WBC (Auto) 04/06/20 04/06/20 04/06/20 11:16 16:27 23:01 WBC RBC Hgb Hct MCV MCH RDW Plt Count Lymph % (Auto) [place] % (Auto) Eos % (Auto) Lymph # (Auto) [place] # (Auto) Eos # (Auto) Seg Neutrophils % Seg Neuts % (Manual) Lymphocytes % (Manual) Monocytes % (Manual) Basophils % (Manual) Seg Neutrophils # Seg Neutrophils # Man Lymphocytes # (Manual) Monocytes # (Manual) Eosinophils # (Manual) Basophils # (Manual) PT INR D-Dimer ABG pH POC ABG pCO2 POC ABG pO2 ABG pO2 ABG HCO3 ABG O2 Saturation ABG Base Excess ABG Hemoglobin ABG Oxyhemoglobin ABG Potassium ABG Glucose Oxyhemoglobin Carboxyhemoglobin Sodium Potassium Chloride Carbon Dioxide BUN Creatinine Glucose POC Glucose 131 H 107 H 125 H Calcium Ferritin Total Bilirubin Alkaline Phosphatase Lactate Dehydrogenase Total Creatine Kinase CK-MB (CK-2) Rel Index Troponin T C-Reactive Protein Total Protein Albumin Prealbumin LDL Cholesterol Direct HDL Cholesterol Arterial Blood Glucose Arterial Blood Ionized Calcium Urine WBC (Auto) 04/07/20 04/07/20 04/07/20 05:24 12:41 17:40 WBC RBC Hgb Hct MCV MCH RDW Plt Count Lymph % (Auto) [place] % (Auto) Eos % (Auto) Lymph # (Auto) [place] # (Auto) Eos # (Auto) Seg Neutrophils % Seg Neuts % (Manual) Lymphocytes % (Manual) Monocytes % (Manual) Basophils % (Manual) Seg Neutrophils # Seg Neutrophils # Man Lymphocytes # (Manual) Monocytes # (Manual) Eosinophils # (Manual) Basophils # (Manual) PT INR D-Dimer ABG pH POC ABG pCO2 POC ABG pO2 ABG pO2 ABG HCO3 ABG O2 Saturation ABG Base Excess ABG Hemoglobin ABG Oxyhemoglobin ABG Potassium ABG Glucose Oxyhemoglobin Carboxyhemoglobin Sodium Potassium Chloride Carbon Dioxide BUN Creatinine Glucose POC Glucose 125 H 145 H 123 H Calcium Ferritin Total Bilirubin Alkaline Phosphatase Lactate Dehydrogenase Total Creatine Kinase CK-MB (CK-2) Rel Index Troponin T C-Reactive Protein Total Protein Albumin Prealbumin LDL Cholesterol Direct HDL Cholesterol Arterial Blood Glucose Arterial Blood Ionized Calcium Urine WBC (Auto) 04/07/20 04/08/20 04/08/20 23:22 05:40 11:29 WBC RBC Hgb Hct MCV MCH RDW Plt Count Lymph % (Auto) [place] % (Auto) Eos % (Auto) Lymph # (Auto) [place] # (Auto) Eos # (Auto) Seg Neutrophils % Seg Neuts % (Manual) Lymphocytes % (Manual) Monocytes % (Manual) Basophils % (Manual) Seg Neutrophils # Seg Neutrophils # Man Lymphocytes # (Manual) Monocytes # (Manual) Eosinophils # (Manual) Basophils # (Manual) PT INR D-Dimer ABG pH POC ABG pCO2 POC ABG pO2 ABG pO2 ABG HCO3 ABG O2 Saturation ABG Base Excess ABG Hemoglobin ABG Oxyhemoglobin ABG Potassium ABG Glucose Oxyhemoglobin Carboxyhemoglobin Sodium Potassium Chloride Carbon Dioxide BUN Creatinine Glucose POC Glucose 133 H 125 H 116 H Calcium Ferritin Total Bilirubin Alkaline Phosphatase Lactate Dehydrogenase Total Creatine Kinase CK-MB (CK-2) Rel Index Troponin T C-Reactive Protein Total Protein Albumin Prealbumin LDL Cholesterol Direct HDL Cholesterol Arterial Blood Glucose Arterial Blood Ionized Calcium Urine WBC (Auto) 04/08/20 04/09/20 04/09/20 17:43 05:47 12:22 WBC RBC Hgb Hct MCV MCH RDW Plt Count Lymph % (Auto) [place] % (Auto) Eos % (Auto) Lymph # (Auto) [place] # (Auto) Eos # (Auto) Seg Neutrophils % Seg Neuts % (Manual) Lymphocytes % (Manual) Monocytes % (Manual) Basophils % (Manual) Seg Neutrophils # Seg Neutrophils # Man Lymphocytes # (Manual) Monocytes # (Manual) Eosinophils # (Manual) Basophils # (Manual) PT INR D-Dimer ABG pH POC ABG pCO2 POC ABG pO2 ABG pO2 ABG HCO3 ABG O2 Saturation ABG Base Excess ABG Hemoglobin ABG Oxyhemoglobin ABG Potassium ABG Glucose Oxyhemoglobin Carboxyhemoglobin Sodium Potassium Chloride Carbon Dioxide BUN Creatinine Glucose POC Glucose 123 H 108 H 116 H Calcium Ferritin Total Bilirubin Alkaline Phosphatase Lactate Dehydrogenase Total Creatine Kinase CK-MB (CK-2) Rel Index Troponin T C-Reactive Protein Total Protein Albumin Prealbumin LDL Cholesterol Direct HDL Cholesterol Arterial Blood Glucose Arterial Blood Ionized Calcium Urine WBC (Auto) 04/09/20 04/09/20 04/10/20 17:24 23:52 06:10 WBC RBC Hgb Hct MCV MCH RDW Plt Count Lymph % (Auto) [place] % (Auto) Eos % (Auto) Lymph # (Auto) [place] # (Auto) Eos # (Auto) Seg Neutrophils % Seg Neuts % (Manual) Lymphocytes % (Manual) Monocytes % (Manual) Basophils % (Manual) Seg Neutrophils # Seg Neutrophils # Man Lymphocytes # (Manual) Monocytes # (Manual) Eosinophils # (Manual) Basophils # (Manual) PT INR D-Dimer ABG pH POC ABG pCO2 POC ABG pO2 ABG pO2 ABG HCO3 ABG O2 Saturation ABG Base Excess ABG Hemoglobin ABG Oxyhemoglobin ABG Potassium ABG Glucose Oxyhemoglobin Carboxyhemoglobin Sodium Potassium Chloride Carbon Dioxide BUN Creatinine Glucose POC Glucose 108 H 126 H 122 H Calcium Ferritin Total Bilirubin Alkaline Phosphatase Lactate Dehydrogenase Total Creatine Kinase CK-MB (CK-2) Rel Index Troponin T C-Reactive Protein Total Protein Albumin Prealbumin LDL Cholesterol Direct HDL Cholesterol Arterial Blood Glucose Arterial Blood Ionized Calcium Urine WBC (Auto) 04/10/20 04/10/20 04/10/20 11:27 18:11 23:24 WBC RBC Hgb Hct MCV MCH RDW Plt Count Lymph % (Auto) [place] % (Auto) Eos % (Auto) Lymph # (Auto) [place] # (Auto) Eos # (Auto) Seg Neutrophils % Seg Neuts % (Manual) Lymphocytes % (Manual) Monocytes % (Manual) Basophils % (Manual) Seg Neutrophils # Seg Neutrophils # Man Lymphocytes # (Manual) Monocytes # (Manual) Eosinophils # (Manual) Basophils # (Manual) PT INR D-Dimer ABG pH POC ABG pCO2 POC ABG pO2 ABG pO2 ABG HCO3 ABG O2 Saturation ABG Base Excess ABG Hemoglobin ABG Oxyhemoglobin ABG Potassium ABG Glucose Oxyhemoglobin Carboxyhemoglobin Sodium Potassium Chloride Carbon Dioxide BUN Creatinine Glucose POC Glucose 129 H 125 H 107 H Calcium Ferritin Total Bilirubin Alkaline Phosphatase Lactate Dehydrogenase Total Creatine Kinase CK-MB (CK-2) Rel Index Troponin T C-Reactive Protein Total Protein Albumin Prealbumin LDL Cholesterol Direct HDL Cholesterol Arterial Blood Glucose Arterial Blood Ionized Calcium Urine WBC (Auto) 04/11/20 04/11/20 04/11/20 05:28 11:46 23:49 WBC RBC Hgb Hct MCV MCH RDW Plt Count Lymph % (Auto) [place] % (Auto) Eos % (Auto) Lymph # (Auto) [place] # (Auto) Eos # (Auto) Seg Neutrophils % Seg Neuts % (Manual) Lymphocytes % (Manual) Monocytes % (Manual) Basophils % (Manual) Seg Neutrophils # Seg Neutrophils # Man Lymphocytes # (Manual) Monocytes # (Manual) Eosinophils # (Manual) Basophils # (Manual) PT INR D-Dimer ABG pH POC ABG pCO2 POC ABG pO2 ABG pO2 ABG HCO3 ABG O2 Saturation ABG Base Excess ABG Hemoglobin ABG Oxyhemoglobin ABG Potassium ABG Glucose Oxyhemoglobin Carboxyhemoglobin Sodium Potassium Chloride Carbon Dioxide BUN Creatinine Glucose POC Glucose 122 H 122 H 116 H Calcium Ferritin Total Bilirubin Alkaline Phosphatase Lactate Dehydrogenase Total Creatine Kinase CK-MB (CK-2) Rel Index Troponin T C-Reactive Protein Total Protein Albumin Prealbumin LDL Cholesterol Direct HDL Cholesterol Arterial Blood Glucose Arterial Blood Ionized Calcium Urine WBC (Auto) 04/12/20 04/12/20 04/12/20 09:07 09:07 11:39 WBC 13.1 H RBC 3.59 L Hgb 9.5 L Hct 29.8 L MCV 83 L MCH 26 L RDW 16.6 H Plt Count 591 H Lymph % (Auto) [place] % (Auto) Eos % (Auto) Lymph # (Auto) [place] # (Auto) Eos # (Auto) Seg Neutrophils % Seg Neuts % (Manual) 86.0 H Lymphocytes % (Manual) 7.0 L Monocytes % (Manual) Basophils % (Manual) Seg Neutrophils # Seg Neutrophils # Man 11.3 H Lymphocytes # (Manual) 0.9 L Monocytes # (Manual) Eosinophils # (Manual) Basophils # (Manual) PT INR D-Dimer ABG pH POC ABG pCO2 POC ABG pO2 ABG pO2 ABG HCO3 ABG O2 Saturation ABG Base Excess ABG Hemoglobin ABG Oxyhemoglobin ABG Potassium ABG Glucose Oxyhemoglobin Carboxyhemoglobin Sodium Potassium Chloride Carbon Dioxide 36 H BUN Creatinine < 0.2 L Glucose 132 H POC Glucose 136 H Calcium Ferritin Total Bilirubin Alkaline Phosphatase Lactate Dehydrogenase Total Creatine Kinase CK-MB (CK-2) Rel Index Troponin T C-Reactive Protein Total Protein Albumin 2.7 L Prealbumin LDL Cholesterol Direct HDL Cholesterol Arterial Blood Glucose Arterial Blood Ionized Calcium Urine WBC (Auto) 04/12/20 04/12/20 04/13/20 18:13 23:07 05:45 WBC RBC Hgb Hct MCV MCH RDW Plt Count Lymph % (Auto) [place] % (Auto) Eos % (Auto) Lymph # (Auto) [place] # (Auto) Eos # (Auto) Seg Neutrophils % Seg Neuts % (Manual) Lymphocytes % (Manual) Monocytes % (Manual) Basophils % (Manual) Seg Neutrophils # Seg Neutrophils # Man Lymphocytes # (Manual) Monocytes # (Manual) Eosinophils # (Manual) Basophils # (Manual) PT INR D-Dimer ABG pH POC ABG pCO2 POC ABG pO2 ABG pO2 ABG HCO3 ABG O2 Saturation ABG Base Excess ABG Hemoglobin ABG Oxyhemoglobin ABG Potassium ABG Glucose Oxyhemoglobin Carboxyhemoglobin Sodium Potassium Chloride Carbon Dioxide BUN Creatinine Glucose POC Glucose 107 H 106 H 125 H Calcium Ferritin Total Bilirubin Alkaline Phosphatase Lactate Dehydrogenase Total Creatine Kinase CK-MB (CK-2) Rel Index Troponin T C-Reactive Protein Total Protein Albumin Prealbumin LDL Cholesterol Direct HDL Cholesterol Arterial Blood Glucose Arterial Blood Ionized Calcium Urine WBC (Auto) 04/13/20 04/13/20 04/13/20 11:18 17:56 23:33 WBC RBC Hgb Hct MCV MCH RDW Plt Count Lymph % (Auto) [place] % (Auto) Eos % (Auto) Lymph # (Auto) [place] # (Auto) Eos # (Auto) Seg Neutrophils % Seg Neuts % (Manual) Lymphocytes % (Manual) Monocytes % (Manual) Basophils % (Manual) Seg Neutrophils # Seg Neutrophils # Man Lymphocytes # (Manual) Monocytes # (Manual) Eosinophils # (Manual) Basophils # (Manual) PT INR D-Dimer ABG pH POC ABG pCO2 POC ABG pO2 ABG pO2 ABG HCO3 ABG O2 Saturation ABG Base Excess ABG Hemoglobin ABG Oxyhemoglobin ABG Potassium ABG Glucose Oxyhemoglobin Carboxyhemoglobin Sodium Potassium Chloride Carbon Dioxide BUN Creatinine Glucose POC Glucose 133 H 110 H 114 H Calcium Ferritin Total Bilirubin Alkaline Phosphatase Lactate Dehydrogenase Total Creatine Kinase CK-MB (CK-2) Rel Index Troponin T C-Reactive Protein Total Protein Albumin Prealbumin LDL Cholesterol Direct HDL Cholesterol Arterial Blood Glucose Arterial Blood Ionized Calcium Urine WBC (Auto) 04/14/20 04/14/20 04/14/20 05:58 11:45 17:48 WBC RBC Hgb Hct MCV MCH RDW Plt Count Lymph % (Auto) [place] % (Auto) Eos % (Auto) Lymph # (Auto) [place] # (Auto) Eos # (Auto) Seg Neutrophils % Seg Neuts % (Manual) Lymphocytes % (Manual) Monocytes % (Manual) Basophils % (Manual) Seg Neutrophils # Seg Neutrophils # Man Lymphocytes # (Manual) Monocytes # (Manual) Eosinophils # (Manual) Basophils # (Manual) PT INR D-Dimer ABG pH POC ABG pCO2 POC ABG pO2 ABG pO2 ABG HCO3 ABG O2 Saturation ABG Base Excess ABG Hemoglobin ABG Oxyhemoglobin ABG Potassium ABG Glucose Oxyhemoglobin Carboxyhemoglobin Sodium Potassium Chloride Carbon Dioxide BUN Creatinine Glucose POC Glucose 115 H 122 H 124 H Calcium Ferritin Total Bilirubin Alkaline Phosphatase Lactate Dehydrogenase Total Creatine Kinase CK-MB (CK-2) Rel Index Troponin T C-Reactive Protein Total Protein Albumin Prealbumin LDL Cholesterol Direct HDL Cholesterol Arterial Blood Glucose Arterial Blood Ionized Calcium Urine WBC (Auto) 04/15/20 04/15/20 04/15/20 00:11 05:38 11:31 WBC RBC Hgb Hct MCV MCH RDW Plt Count Lymph % (Auto) [place] % (Auto) Eos % (Auto) Lymph # (Auto) [place] # (Auto) Eos # (Auto) Seg Neutrophils % Seg Neuts % (Manual) Lymphocytes % (Manual) Monocytes % (Manual) Basophils % (Manual) Seg Neutrophils # Seg Neutrophils # Man Lymphocytes # (Manual) Monocytes # (Manual) Eosinophils # (Manual) Basophils # (Manual) PT INR D-Dimer ABG pH POC ABG pCO2 POC ABG pO2 ABG pO2 ABG HCO3 ABG O2 Saturation ABG Base Excess ABG Hemoglobin ABG Oxyhemoglobin ABG Potassium ABG Glucose Oxyhemoglobin Carboxyhemoglobin Sodium Potassium Chloride Carbon Dioxide BUN Creatinine Glucose POC Glucose 120 H 109 H 123 H Calcium Ferritin Total Bilirubin Alkaline Phosphatase Lactate Dehydrogenase Total Creatine Kinase CK-MB (CK-2) Rel Index Troponin T C-Reactive Protein Total Protein Albumin Prealbumin LDL Cholesterol Direct HDL Cholesterol Arterial Blood Glucose Arterial Blood Ionized Calcium Urine WBC (Auto) 04/15/20 04/16/20 04/16/20 17:35 06:00 11:29 WBC RBC Hgb Hct MCV MCH RDW Plt Count Lymph % (Auto) [place] % (Auto) Eos % (Auto) Lymph # (Auto) [place] # (Auto) Eos # (Auto) Seg Neutrophils % Seg Neuts % (Manual) Lymphocytes % (Manual) Monocytes % (Manual) Basophils % (Manual) Seg Neutrophils # Seg Neutrophils # Man Lymphocytes # (Manual) Monocytes # (Manual) Eosinophils # (Manual) Basophils # (Manual) PT INR D-Dimer ABG pH POC ABG pCO2 POC ABG pO2 ABG pO2 ABG HCO3 ABG O2 Saturation ABG Base Excess ABG Hemoglobin ABG Oxyhemoglobin ABG Potassium ABG Glucose Oxyhemoglobin Carboxyhemoglobin Sodium Potassium Chloride Carbon Dioxide BUN Creatinine Glucose POC Glucose 111 H 142 H 108 H Calcium Ferritin Total Bilirubin Alkaline Phosphatase Lactate Dehydrogenase Total Creatine Kinase CK-MB (CK-2) Rel Index Troponin T C-Reactive Protein Total Protein Albumin Prealbumin LDL Cholesterol Direct HDL Cholesterol Arterial Blood Glucose Arterial Blood Ionized Calcium Urine WBC (Auto) 04/17/20 04/17/20 04/17/20 05:09 06:53 06:53 WBC 14.2 H RBC Hgb 10.1 L Hct 31.5 L MCV MCH 27 L RDW 17.2 H Plt Count 643 H Lymph % (Auto) [place] % (Auto) Eos % (Auto) Lymph # (Auto) [place] # (Auto) Eos # (Auto) Seg Neutrophils % Seg Neuts % (Manual) Lymphocytes % (Manual) Monocytes % (Manual) Basophils % (Manual) Seg Neutrophils # Seg Neutrophils # Man Lymphocytes # (Manual) Monocytes # (Manual) Eosinophils # (Manual) Basophils # (Manual) PT INR D-Dimer ABG pH POC ABG pCO2 POC ABG pO2 ABG pO2 ABG HCO3 ABG O2 Saturation ABG Base Excess ABG Hemoglobin ABG Oxyhemoglobin ABG Potassium ABG Glucose Oxyhemoglobin Carboxyhemoglobin Sodium Potassium Chloride 97.7 L Carbon Dioxide 38 H BUN Creatinine < 0.2 L Glucose 126 H POC Glucose 131 H Calcium Ferritin Total Bilirubin Alkaline Phosphatase Lactate Dehydrogenase Total Creatine Kinase CK-MB (CK-2) Rel Index Troponin T C-Reactive Protein Total Protein Albumin Prealbumin LDL Cholesterol Direct HDL Cholesterol Arterial Blood Glucose Arterial Blood Ionized Calcium Urine WBC (Auto) 04/17/20 04/18/20 04/18/20 11:21 00:23 04:01 WBC 15.3 H RBC Hgb 10.1 L Hct 31.9 L MCV 82 L MCH 26 L RDW 17.2 H Plt Count 665 H Lymph % (Auto) 12.9 L [place] % (Auto) Eos % (Auto) Lymph # (Auto) [place] # (Auto) 1.1 H Eos # (Auto) Seg Neutrophils % 78.0 H Seg Neuts % (Manual) Lymphocytes % (Manual) Monocytes % (Manual) Basophils % (Manual) Seg Neutrophils # 11.9 H Seg Neutrophils # Man Lymphocytes # (Manual) Monocytes # (Manual) Eosinophils # (Manual) Basophils # (Manual) PT INR D-Dimer ABG pH POC ABG pCO2 POC ABG pO2 ABG pO2 ABG HCO3 ABG O2 Saturation ABG Base Excess ABG Hemoglobin ABG Oxyhemoglobin ABG Potassium ABG Glucose Oxyhemoglobin Carboxyhemoglobin Sodium Potassium Chloride Carbon Dioxide BUN Creatinine Glucose POC Glucose 140 H 125 H Calcium Ferritin Total Bilirubin Alkaline Phosphatase Lactate Dehydrogenase Total Creatine Kinase CK-MB (CK-2) Rel Index Troponin T C-Reactive Protein Total Protein Albumin Prealbumin LDL Cholesterol Direct HDL Cholesterol Arterial Blood Glucose Arterial Blood Ionized Calcium Urine WBC (Auto) 04/18/20 04/18/20 04/18/20 04:01 11:29 17:30 WBC RBC Hgb Hct MCV MCH RDW Plt Count Lymph % (Auto) [place] % (Auto) Eos % (Auto) Lymph # (Auto) [place] # (Auto) Eos # (Auto) Seg Neutrophils % Seg Neuts % (Manual) Lymphocytes % (Manual) Monocytes % (Manual) Basophils % (Manual) Seg Neutrophils # Seg Neutrophils # Man Lymphocytes # (Manual) Monocytes # (Manual) Eosinophils # (Manual) Basophils # (Manual) PT INR D-Dimer ABG pH POC ABG pCO2 POC ABG pO2 ABG pO2 ABG HCO3 ABG O2 Saturation ABG Base Excess ABG Hemoglobin ABG Oxyhemoglobin ABG Potassium ABG Glucose Oxyhemoglobin Carboxyhemoglobin Sodium Potassium Chloride 97.0 L Carbon Dioxide 38 H BUN Creatinine < 0.2 L Glucose 117 H POC Glucose 136 H 107 H Calcium Ferritin Total Bilirubin Alkaline Phosphatase Lactate Dehydrogenase Total Creatine Kinase CK-MB (CK-2) Rel Index Troponin T C-Reactive Protein Total Protein Albumin Prealbumin LDL Cholesterol Direct HDL Cholesterol Arterial Blood Glucose Arterial Blood Ionized Calcium Urine WBC (Auto) 04/18/20 04/19/20 04/19/20 23:19 06:51 06:51 WBC 12.2 H RBC Hgb 9.8 L Hct 31.1 L MCV 82 L MCH 26 L RDW 17.2 H Plt Count 549 H Lymph % (Auto) 6.5 L [place] % (Auto) Eos % (Auto) Lymph # (Auto) 0.8 L [place] # (Auto) Eos # (Auto) Seg Neutrophils % 86.7 H Seg Neuts % (Manual) Lymphocytes % (Manual) Monocytes % (Manual) Basophils % (Manual) Seg Neutrophils # 10.6 H Seg Neutrophils # Man Lymphocytes # (Manual) Monocytes # (Manual) Eosinophils # (Manual) Basophils # (Manual) PT INR D-Dimer ABG pH POC ABG pCO2 POC ABG pO2 ABG pO2 ABG HCO3 ABG O2 Saturation ABG Base Excess ABG Hemoglobin ABG Oxyhemoglobin ABG Potassium ABG Glucose Oxyhemoglobin Carboxyhemoglobin Sodium Potassium Chloride 97.8 L Carbon Dioxide 38 H BUN Creatinine < 0.2 L Glucose 123 H POC Glucose 127 H Calcium Ferritin Total Bilirubin Alkaline Phosphatase Lactate Dehydrogenase Total Creatine Kinase CK-MB (CK-2) Rel Index Troponin T C-Reactive Protein Total Protein Albumin Prealbumin LDL Cholesterol Direct HDL Cholesterol Arterial Blood Glucose Arterial Blood Ionized Calcium Urine WBC (Auto) 04/19/20 04/19/20 04/20/20 13:41 18:33 05:56 WBC RBC Hgb Hct MCV MCH RDW Plt Count Lymph % (Auto) [place] % (Auto) Eos % (Auto) Lymph # (Auto) [place] # (Auto) Eos # (Auto) Seg Neutrophils % Seg Neuts % (Manual) Lymphocytes % (Manual) Monocytes % (Manual) Basophils % (Manual) Seg Neutrophils # Seg Neutrophils # Man Lymphocytes # (Manual) Monocytes # (Manual) Eosinophils # (Manual) Basophils # (Manual) PT INR D-Dimer ABG pH POC ABG pCO2 POC ABG pO2 ABG pO2 ABG HCO3 ABG O2 Saturation ABG Base Excess ABG Hemoglobin ABG Oxyhemoglobin ABG Potassium ABG Glucose Oxyhemoglobin Carboxyhemoglobin Sodium Potassium Chloride Carbon Dioxide BUN Creatinine Glucose POC Glucose 116 H 124 H 130 H Calcium Ferritin Total Bilirubin Alkaline Phosphatase Lactate Dehydrogenase Total Creatine Kinase CK-MB (CK-2) Rel Index Troponin T C-Reactive Protein Total Protein Albumin Prealbumin LDL Cholesterol Direct HDL Cholesterol Arterial Blood Glucose Arterial Blood Ionized Calcium Urine WBC (Auto) 04/20/20 04/20/20 04/20/20 06:28 06:28 11:46 WBC RBC Hgb 10.2 L Hct 31.5 L MCV 82 L MCH 27 L RDW 17.1 H Plt Count 546 H Lymph % (Auto) 10.0 L [place] % (Auto) 9.8 H Eos % (Auto) Lymph # (Auto) 1.1 L [place] # (Auto) 1.1 H Eos # (Auto) Seg Neutrophils % 78.4 H Seg Neuts % (Manual) Lymphocytes % (Manual) Monocytes % (Manual) Basophils % (Manual) Seg Neutrophils # 8.5 H Seg Neutrophils # Man Lymphocytes # (Manual) Monocytes # (Manual) Eosinophils # (Manual) Basophils # (Manual) PT INR D-Dimer ABG pH POC ABG pCO2 POC ABG pO2 ABG pO2 ABG HCO3 ABG O2 Saturation ABG Base Excess ABG Hemoglobin ABG Oxyhemoglobin ABG Potassium ABG Glucose Oxyhemoglobin Carboxyhemoglobin Sodium Potassium Chloride 97.0 L Carbon Dioxide 38 H BUN Creatinine < 0.2 L Glucose 138 H POC Glucose 130 H Calcium Ferritin Total Bilirubin Alkaline Phosphatase Lactate Dehydrogenase Total Creatine Kinase CK-MB (CK-2) Rel Index Troponin T C-Reactive Protein Total Protein Albumin Prealbumin LDL Cholesterol Direct HDL Cholesterol Arterial Blood Glucose Arterial Blood Ionized Calcium Urine WBC (Auto) 04/20/20 04/21/20 04/21/20 23:31 05:55 05:55 WBC RBC Hgb 10.0 L Hct 31.1 L MCV 82 L MCH 26 L RDW 17.0 H Plt Count 535 H Lymph % (Auto) [place] % (Auto) 9.2 H Eos % (Auto) Lymph # (Auto) 1.1 L [place] # (Auto) Eos # (Auto) Seg Neutrophils % 75.4 H Seg Neuts % (Manual) Lymphocytes % (Manual) Monocytes % (Manual) Basophils % (Manual) Seg Neutrophils # Seg Neutrophils # Man Lymphocytes # (Manual) Monocytes # (Manual) Eosinophils # (Manual) Basophils # (Manual) PT INR D-Dimer ABG pH POC ABG pCO2 POC ABG pO2 ABG pO2 ABG HCO3 ABG O2 Saturation ABG Base Excess ABG Hemoglobin ABG Oxyhemoglobin ABG Potassium ABG Glucose Oxyhemoglobin Carboxyhemoglobin Sodium Potassium Chloride 95.0 L Carbon Dioxide 34 H BUN Creatinine < 0.2 L Glucose 125 H POC Glucose 116 H Calcium Ferritin Total Bilirubin Alkaline Phosphatase Lactate Dehydrogenase Total Creatine Kinase CK-MB (CK-2) Rel Index Troponin T C-Reactive Protein Total Protein Albumin Prealbumin LDL Cholesterol Direct HDL Cholesterol Arterial Blood Glucose Arterial Blood Ionized Calcium Urine WBC (Auto) 04/22/20 04/22/20 04/22/20 00:01 07:45 07:45 WBC RBC Hgb 10.0 L Hct 30.7 L MCV 81 L MCH 27 L RDW 17.1 H Plt Count 490 H Lymph % (Auto) [place] % (Auto) Eos % (Auto) Lymph # (Auto) [place] # (Auto) Eos # (Auto) Seg Neutrophils % Seg Neuts % (Manual) 75.0 H Lymphocytes % (Manual) 11.0 L Monocytes % (Manual) 9.0 H Basophils % (Manual) Seg Neutrophils # Seg Neutrophils # Man Lymphocytes # (Manual) 0.8 L Monocytes # (Manual) Eosinophils # (Manual) Basophils # (Manual) PT INR D-Dimer ABG pH POC ABG pCO2 POC ABG pO2 ABG pO2 ABG HCO3 ABG O2 Saturation ABG Base Excess ABG Hemoglobin ABG Oxyhemoglobin ABG Potassium ABG Glucose Oxyhemoglobin Carboxyhemoglobin Sodium Potassium Chloride 96.3 L Carbon Dioxide 40 H BUN Creatinine < 0.2 L Glucose 109 H POC Glucose 110 H Calcium Ferritin Total Bilirubin Alkaline Phosphatase Lactate Dehydrogenase Total Creatine Kinase CK-MB (CK-2) Rel Index Troponin T C-Reactive Protein Total Protein Albumin Prealbumin LDL Cholesterol Direct HDL Cholesterol Arterial Blood Glucose Arterial Blood Ionized Calcium Urine WBC (Auto) 04/23/20 04/23/20 04/23/20 04:28 04:28 04:28 WBC RBC 3.64 L Hgb 9.7 L Hct 29.4 L MCV 81 L MCH 27 L RDW 17.2 H Plt Count 527 H Lymph % (Auto) [place] % (Auto) 8.9 H Eos % (Auto) Lymph # (Auto) [place] # (Auto) Eos # (Auto) Seg Neutrophils % Seg Neuts % (Manual) Lymphocytes % (Manual) Monocytes % (Manual) Basophils % (Manual) Seg Neutrophils # Seg Neutrophils # Man Lymphocytes # (Manual) Monocytes # (Manual) Eosinophils # (Manual) Basophils # (Manual) PT INR D-Dimer ABG pH POC ABG pCO2 POC ABG pO2 ABG pO2 ABG HCO3 ABG O2 Saturation ABG Base Excess ABG Hemoglobin ABG Oxyhemoglobin ABG Potassium ABG Glucose Oxyhemoglobin Carboxyhemoglobin Sodium Potassium Chloride 96.4 L Carbon Dioxide 32 H D BUN Creatinine < 0.2 L Glucose 134 H POC Glucose Calcium Ferritin Total Bilirubin Alkaline Phosphatase Lactate Dehydrogenase Total Creatine Kinase CK-MB (CK-2) Rel Index Troponin T 0.151 H* C-Reactive Protein Total Protein Albumin Prealbumin LDL Cholesterol Direct HDL Cholesterol 29 L Arterial Blood Glucose Arterial Blood Ionized Calcium Urine WBC (Auto) 04/23/20 04/23/20 04/24/20 06:03 23:41 05:28 WBC RBC 3.56 L Hgb 9.5 L Hct 28.9 L MCV 81 L MCH 27 L RDW 17.4 H Plt Count 462 H Lymph % (Auto) [place] % (Auto) Eos % (Auto) Lymph # (Auto) [place] # (Auto) Eos # (Auto) Seg Neutrophils % Seg Neuts % (Manual) 80.0 H Lymphocytes % (Manual) Monocytes % (Manual) Basophils % (Manual) Seg Neutrophils # Seg Neutrophils # Man Lymphocytes # (Manual) Monocytes # (Manual) Eosinophils # (Manual) Basophils # (Manual) PT INR D-Dimer ABG pH POC ABG pCO2 POC ABG pO2 ABG pO2 ABG HCO3 ABG O2 Saturation ABG Base Excess ABG Hemoglobin ABG Oxyhemoglobin ABG Potassium ABG Glucose Oxyhemoglobin Carboxyhemoglobin Sodium Potassium Chloride Carbon Dioxide BUN Creatinine Glucose POC Glucose 132 H 117 H Calcium Ferritin Total Bilirubin Alkaline Phosphatase Lactate Dehydrogenase Total Creatine Kinase CK-MB (CK-2) Rel Index Troponin T C-Reactive Protein Total Protein Albumin Prealbumin LDL Cholesterol Direct HDL Cholesterol Arterial Blood Glucose Arterial Blood Ionized Calcium Urine WBC (Auto) 04/24/20 04/24/20 04/24/20 05:28 05:28 05:33 WBC RBC Hgb Hct MCV MCH RDW Plt Count Lymph % (Auto) [place] % (Auto) Eos % (Auto) Lymph # (Auto) [place] # (Auto) Eos # (Auto) Seg Neutrophils % Seg Neuts % (Manual) Lymphocytes % (Manual) Monocytes % (Manual) Basophils % (Manual) Seg Neutrophils # Seg Neutrophils # Man Lymphocytes # (Manual) Monocytes # (Manual) Eosinophils # (Manual) Basophils # (Manual) PT INR D-Dimer ABG pH POC ABG pCO2 POC ABG pO2 ABG pO2 ABG HCO3 ABG O2 Saturation ABG Base Excess ABG Hemoglobin ABG Oxyhemoglobin ABG Potassium ABG Glucose Oxyhemoglobin Carboxyhemoglobin Sodium Potassium Chloride 96.1 L Carbon Dioxide 40 H D BUN Creatinine < 0.2 L Glucose 115 H POC Glucose 109 H Calcium Ferritin Total Bilirubin Alkaline Phosphatase Lactate Dehydrogenase Total Creatine Kinase CK-MB (CK-2) Rel Index Troponin T 0.181 H* C-Reactive Protein Total Protein Albumin Prealbumin LDL Cholesterol Direct HDL Cholesterol Arterial Blood Glucose Arterial Blood Ionized Calcium Urine WBC (Auto) 04/24/20 04/24/20 04/25/20 11:17 18:23 00:12 WBC RBC Hgb Hct MCV MCH RDW Plt Count Lymph % (Auto) [place] % (Auto) Eos % (Auto) Lymph # (Auto) [place] # (Auto) Eos # (Auto) Seg Neutrophils % Seg Neuts % (Manual) Lymphocytes % (Manual) Monocytes % (Manual) Basophils % (Manual) Seg Neutrophils # Seg Neutrophils # Man Lymphocytes # (Manual) Monocytes # (Manual) Eosinophils # (Manual) Basophils # (Manual) PT INR D-Dimer ABG pH POC ABG pCO2 POC ABG pO2 ABG pO2 ABG HCO3 ABG O2 Saturation ABG Base Excess ABG Hemoglobin ABG Oxyhemoglobin ABG Potassium ABG Glucose Oxyhemoglobin Carboxyhemoglobin Sodium Potassium Chloride Carbon Dioxide BUN Creatinine Glucose POC Glucose 117 H 109 H 113 H Calcium Ferritin Total Bilirubin Alkaline Phosphatase Lactate Dehydrogenase Total Creatine Kinase CK-MB (CK-2) Rel Index Troponin T C-Reactive Protein Total Protein Albumin Prealbumin LDL Cholesterol Direct HDL Cholesterol Arterial Blood Glucose Arterial Blood Ionized Calcium Urine WBC (Auto) 04/25/20 04/25/20 04/25/20 06:34 06:34 11:28 WBC 11.7 H RBC Hgb 10.0 L Hct 31.7 L MCV 82 L MCH 26 L RDW 17.5 H Plt Count 564 H Lymph % (Auto) [place] % (Auto) Eos % (Auto) Lymph # (Auto) [place] # (Auto) Eos # (Auto) Seg Neutrophils % Seg Neuts % (Manual) 78.0 H Lymphocytes % (Manual) 10.0 L Monocytes % (Manual) 9.0 H Basophils % (Manual) Seg Neutrophils # Seg Neutrophils # Man 9.1 H Lymphocytes # (Manual) Monocytes # (Manual) 1.1 H Eosinophils # (Manual) Basophils # (Manual) PT INR D-Dimer ABG pH POC ABG pCO2 POC ABG pO2 ABG pO2 ABG HCO3 ABG O2 Saturation ABG Base Excess ABG Hemoglobin ABG Oxyhemoglobin ABG Potassium ABG Glucose Oxyhemoglobin Carboxyhemoglobin Sodium Potassium Chloride Carbon Dioxide 39 H BUN Creatinine < 0.2 L Glucose 103 H POC Glucose 112 H Calcium Ferritin Total Bilirubin Alkaline Phosphatase Lactate Dehydrogenase Total Creatine Kinase CK-MB (CK-2) Rel Index Troponin T C-Reactive Protein Total Protein Albumin Prealbumin LDL Cholesterol Direct HDL Cholesterol Arterial Blood Glucose Arterial Blood Ionized Calcium Urine WBC (Auto) 04/27/20 04/27/20 04/27/20 11:48 17:08 23:31 WBC RBC Hgb Hct MCV MCH RDW Plt Count Lymph % (Auto) [place] % (Auto) Eos % (Auto) Lymph # (Auto) [place] # (Auto) Eos # (Auto) Seg Neutrophils % Seg Neuts % (Manual) Lymphocytes % (Manual) Monocytes % (Manual) Basophils % (Manual) Seg Neutrophils # Seg Neutrophils # Man Lymphocytes # (Manual) Monocytes # (Manual) Eosinophils # (Manual) Basophils # (Manual) PT INR D-Dimer ABG pH POC ABG pCO2 POC ABG pO2 ABG pO2 ABG HCO3 ABG O2 Saturation ABG Base Excess ABG Hemoglobin ABG Oxyhemoglobin ABG Potassium ABG Glucose Oxyhemoglobin Carboxyhemoglobin Sodium Potassium Chloride Carbon Dioxide BUN Creatinine Glucose POC Glucose 124 H 118 H 122 H Calcium Ferritin Total Bilirubin Alkaline Phosphatase Lactate Dehydrogenase Total Creatine Kinase CK-MB (CK-2) Rel Index Troponin T C-Reactive Protein Total Protein Albumin Prealbumin LDL Cholesterol Direct HDL Cholesterol Arterial Blood Glucose Arterial Blood Ionized Calcium Urine WBC (Auto) 04/28/20 04/29/20 04/29/20 05:42 00:14 05:30 WBC RBC Hgb Hct MCV MCH RDW Plt Count Lymph % (Auto) [place] % (Auto) Eos % (Auto) Lymph # (Auto) [place] # (Auto) Eos # (Auto) Seg Neutrophils % Seg Neuts % (Manual) Lymphocytes % (Manual) Monocytes % (Manual) Basophils % (Manual) Seg Neutrophils # Seg Neutrophils # Man Lymphocytes # (Manual) Monocytes # (Manual) Eosinophils # (Manual) Basophils # (Manual) PT INR D-Dimer ABG pH POC ABG pCO2 POC ABG pO2 ABG pO2 ABG HCO3 ABG O2 Saturation ABG Base Excess ABG Hemoglobin ABG Oxyhemoglobin ABG Potassium ABG Glucose Oxyhemoglobin Carboxyhemoglobin Sodium Potassium Chloride Carbon Dioxide BUN Creatinine Glucose POC Glucose 122 H 115 H 123 H Calcium Ferritin Total Bilirubin Alkaline Phosphatase Lactate Dehydrogenase Total Creatine Kinase CK-MB (CK-2) Rel Index Troponin T C-Reactive Protein Total Protein Albumin Prealbumin LDL Cholesterol Direct HDL Cholesterol Arterial Blood Glucose Arterial Blood Ionized Calcium Urine WBC (Auto) 04/30/20 05/01/20 05/01/20 00:29 05:39 12:30 WBC RBC Hgb Hct MCV MCH RDW Plt Count Lymph % (Auto) [place] % (Auto) Eos % (Auto) Lymph # (Auto) [place] # (Auto) Eos # (Auto) Seg Neutrophils % Seg Neuts % (Manual) Lymphocytes % (Manual) Monocytes % (Manual) Basophils % (Manual) Seg Neutrophils # Seg Neutrophils # Man Lymphocytes # (Manual) Monocytes # (Manual) Eosinophils # (Manual) Basophils # (Manual) PT INR D-Dimer ABG pH POC ABG pCO2 POC ABG pO2 ABG pO2 ABG HCO3 ABG O2 Saturation ABG Base Excess ABG Hemoglobin ABG Oxyhemoglobin ABG Potassium ABG Glucose Oxyhemoglobin Carboxyhemoglobin Sodium Potassium Chloride Carbon Dioxide BUN Creatinine Glucose POC Glucose 106 H 109 H 108 H Calcium Ferritin Total Bilirubin Alkaline Phosphatase Lactate Dehydrogenase Total Creatine Kinase CK-MB (CK-2) Rel Index Troponin T C-Reactive Protein Total Protein Albumin Prealbumin LDL Cholesterol Direct HDL Cholesterol Arterial Blood Glucose Arterial Blood Ionized Calcium Urine WBC (Auto) 05/01/20 05/03/20 05/03/20 23:35 05:09 11:36 WBC RBC Hgb Hct MCV MCH RDW Plt Count Lymph % (Auto) [place] % (Auto) Eos % (Auto) Lymph # (Auto) [place] # (Auto) Eos # (Auto) Seg Neutrophils % Seg Neuts % (Manual) Lymphocytes % (Manual) Monocytes % (Manual) Basophils % (Manual) Seg Neutrophils # Seg Neutrophils # Man Lymphocytes # (Manual) Monocytes # (Manual) Eosinophils # (Manual) Basophils # (Manual) PT INR D-Dimer ABG pH POC ABG pCO2 POC ABG pO2 ABG pO2 ABG HCO3 ABG O2 Saturation ABG Base Excess ABG Hemoglobin ABG Oxyhemoglobin ABG Potassium ABG Glucose Oxyhemoglobin Carboxyhemoglobin Sodium Potassium Chloride Carbon Dioxide BUN Creatinine Glucose POC Glucose 116 H 117 H 116 H Calcium Ferritin Total Bilirubin Alkaline Phosphatase Lactate Dehydrogenase Total Creatine Kinase CK-MB (CK-2) Rel Index Troponin T C-Reactive Protein Total Protein Albumin Prealbumin LDL Cholesterol Direct HDL Cholesterol Arterial Blood Glucose Arterial Blood Ionized Calcium Urine WBC (Auto) 05/03/20 05/03/20 05/03/20 14:06 14:06 23:39 WBC 12.5 H RBC Hgb 10.0 L Hct 31.2 L MCV 80 L MCH 26 L RDW 17.6 H Plt Count 488 H Lymph % (Auto) [place] % (Auto) Eos % (Auto) Lymph # (Auto) [place] # (Auto) Eos # (Auto) Seg Neutrophils % Seg Neuts % (Manual) Lymphocytes % (Manual) Monocytes % (Manual) Basophils % (Manual) Seg Neutrophils # Seg Neutrophils # Man Lymphocytes # (Manual) Monocytes # (Manual) Eosinophils # (Manual) Basophils # (Manual) PT INR D-Dimer ABG pH POC ABG pCO2 POC ABG pO2 ABG pO2 ABG HCO3 ABG O2 Saturation ABG Base Excess ABG Hemoglobin ABG Oxyhemoglobin ABG Potassium ABG Glucose Oxyhemoglobin Carboxyhemoglobin Sodium Potassium Chloride 95.4 L Carbon Dioxide 40 H BUN Creatinine < 0.2 L Glucose 121 H POC Glucose 107 H Calcium Ferritin Total Bilirubin Alkaline Phosphatase Lactate Dehydrogenase Total Creatine Kinase CK-MB (CK-2) Rel Index Troponin T C-Reactive Protein Total Protein Albumin Prealbumin LDL Cholesterol Direct HDL Cholesterol Arterial Blood Glucose Arterial Blood Ionized Calcium Urine WBC (Auto) 05/04/20 05/04/20 05/04/20 11:31 16:57 23:18 WBC RBC Hgb Hct MCV MCH RDW Plt Count Lymph % (Auto) [place] % (Auto) Eos % (Auto) Lymph # (Auto) [place] # (Auto) Eos # (Auto) Seg Neutrophils % Seg Neuts % (Manual) Lymphocytes % (Manual) Monocytes % (Manual) Basophils % (Manual) Seg Neutrophils # Seg Neutrophils # Man Lymphocytes # (Manual) Monocytes # (Manual) Eosinophils # (Manual) Basophils # (Manual) PT INR D-Dimer ABG pH POC ABG pCO2 POC ABG pO2 ABG pO2 ABG HCO3 ABG O2 Saturation ABG Base Excess ABG Hemoglobin ABG Oxyhemoglobin ABG Potassium ABG Glucose Oxyhemoglobin Carboxyhemoglobin Sodium Potassium Chloride Carbon Dioxide BUN Creatinine Glucose POC Glucose 113 H 126 H 126 H Calcium Ferritin Total Bilirubin Alkaline Phosphatase Lactate Dehydrogenase Total Creatine Kinase CK-MB (CK-2) Rel Index Troponin T C-Reactive Protein Total Protein Albumin Prealbumin LDL Cholesterol Direct HDL Cholesterol Arterial Blood Glucose Arterial Blood Ionized Calcium Urine WBC (Auto) 05/05/20 05/05/20 05/05/20 05:32 11:11 23:57 WBC RBC Hgb Hct MCV MCH RDW Plt Count Lymph % (Auto) [place] % (Auto) Eos % (Auto) Lymph # (Auto) [place] # (Auto) Eos # (Auto) Seg Neutrophils % Seg Neuts % (Manual) Lymphocytes % (Manual) Monocytes % (Manual) Basophils % (Manual) Seg Neutrophils # Seg Neutrophils # Man Lymphocytes # (Manual) Monocytes # (Manual) Eosinophils # (Manual) Basophils # (Manual) PT INR D-Dimer ABG pH POC ABG pCO2 POC ABG pO2 ABG pO2 ABG HCO3 ABG O2 Saturation ABG Base Excess ABG Hemoglobin ABG Oxyhemoglobin ABG Potassium ABG Glucose Oxyhemoglobin Carboxyhemoglobin Sodium Potassium Chloride Carbon Dioxide BUN Creatinine Glucose POC Glucose 109 H 124 H 119 H Calcium Ferritin Total Bilirubin Alkaline Phosphatase Lactate Dehydrogenase Total Creatine Kinase CK-MB (CK-2) Rel Index Troponin T C-Reactive Protein Total Protein Albumin Prealbumin LDL Cholesterol Direct HDL Cholesterol Arterial Blood Glucose Arterial Blood Ionized Calcium Urine WBC (Auto) 05/06/20 05/06/20 05/07/20 05:34 23:08 04:43 WBC RBC Hgb 10.1 L Hct 31.9 L MCV 81 L MCH 25 L RDW 17.6 H Plt Count 506 H Lymph % (Auto) [place] % (Auto) 8.6 H Eos % (Auto) Lymph # (Auto) [place] # (Auto) 0.9 H Eos # (Auto) Seg Neutrophils % Seg Neuts % (Manual) Lymphocytes % (Manual) Monocytes % (Manual) Basophils % (Manual) Seg Neutrophils # Seg Neutrophils # Man Lymphocytes # (Manual) Monocytes # (Manual) Eosinophils # (Manual) Basophils # (Manual) PT INR D-Dimer ABG pH POC ABG pCO2 POC ABG pO2 ABG pO2 ABG HCO3 ABG O2 Saturation ABG Base Excess ABG Hemoglobin ABG Oxyhemoglobin ABG Potassium ABG Glucose Oxyhemoglobin Carboxyhemoglobin Sodium Potassium Chloride Carbon Dioxide BUN Creatinine Glucose POC Glucose 121 H 107 H Calcium Ferritin Total Bilirubin Alkaline Phosphatase Lactate Dehydrogenase Total Creatine Kinase CK-MB (CK-2) Rel Index Troponin T C-Reactive Protein Total Protein Albumin Prealbumin LDL Cholesterol Direct HDL Cholesterol Arterial Blood Glucose Arterial Blood Ionized Calcium Urine WBC (Auto) 05/07/20 05/07/20 05/07/20 06:18 17:13 23:29 WBC RBC Hgb Hct MCV MCH RDW Plt Count Lymph % (Auto) [place] % (Auto) Eos % (Auto) Lymph # (Auto) [place] # (Auto) Eos # (Auto) Seg Neutrophils % Seg Neuts % (Manual) Lymphocytes % (Manual) Monocytes % (Manual) Basophils % (Manual) Seg Neutrophils # Seg Neutrophils # Man Lymphocytes # (Manual) Monocytes # (Manual) Eosinophils # (Manual) Basophils # (Manual) PT INR D-Dimer ABG pH POC ABG pCO2 POC ABG pO2 ABG pO2 ABG HCO3 ABG O2 Saturation ABG Base Excess ABG Hemoglobin ABG Oxyhemoglobin ABG Potassium ABG Glucose Oxyhemoglobin Carboxyhemoglobin Sodium Potassium Chloride Carbon Dioxide BUN Creatinine Glucose POC Glucose 121 H 122 H 114 H Calcium Ferritin Total Bilirubin Alkaline Phosphatase Lactate Dehydrogenase Total Creatine Kinase CK-MB (CK-2) Rel Index Troponin T C-Reactive Protein Total Protein Albumin Prealbumin LDL Cholesterol Direct HDL Cholesterol Arterial Blood Glucose Arterial Blood Ionized Calcium Urine WBC (Auto) 05/08/20 05/08/20 05/08/20 05:20 11:57 23:42 WBC RBC Hgb Hct MCV MCH RDW Plt Count Lymph % (Auto) [place] % (Auto) Eos % (Auto) Lymph # (Auto) [place] # (Auto) Eos # (Auto) Seg Neutrophils % Seg Neuts % (Manual) Lymphocytes % (Manual) Monocytes % (Manual) Basophils % (Manual) Seg Neutrophils # Seg Neutrophils # Man Lymphocytes # (Manual) Monocytes # (Manual) Eosinophils # (Manual) Basophils # (Manual) PT INR D-Dimer ABG pH POC ABG pCO2 POC ABG pO2 ABG pO2 ABG HCO3 ABG O2 Saturation ABG Base Excess ABG Hemoglobin ABG Oxyhemoglobin ABG Potassium ABG Glucose Oxyhemoglobin Carboxyhemoglobin Sodium Potassium Chloride Carbon Dioxide BUN Creatinine Glucose POC Glucose 121 H 113 H 135 H Calcium Ferritin Total Bilirubin Alkaline Phosphatase Lactate Dehydrogenase Total Creatine Kinase CK-MB (CK-2) Rel Index Troponin T C-Reactive Protein Total Protein Albumin Prealbumin LDL Cholesterol Direct HDL Cholesterol Arterial Blood Glucose Arterial Blood Ionized Calcium Urine WBC (Auto) 05/09/20 05/09/20 05/09/20 05:31 11:11 16:06 WBC RBC Hgb Hct MCV MCH RDW Plt Count Lymph % (Auto) [place] % (Auto) Eos % (Auto) Lymph # (Auto) [place] # (Auto) Eos # (Auto) Seg Neutrophils % Seg Neuts % (Manual) Lymphocytes % (Manual) Monocytes % (Manual) Basophils % (Manual) Seg Neutrophils # Seg Neutrophils # Man Lymphocytes # (Manual) Monocytes # (Manual) Eosinophils # (Manual) Basophils # (Manual) PT INR D-Dimer ABG pH POC ABG pCO2 POC ABG pO2 ABG pO2 ABG HCO3 ABG O2 Saturation ABG Base Excess ABG Hemoglobin ABG Oxyhemoglobin ABG Potassium ABG Glucose Oxyhemoglobin Carboxyhemoglobin Sodium 136 L Potassium Chloride 97.0 L Carbon Dioxide 34 H BUN Creatinine < 0.2 L Glucose 107 H POC Glucose 66 L 127 H Calcium Ferritin Total Bilirubin Alkaline Phosphatase Lactate Dehydrogenase Total Creatine Kinase CK-MB (CK-2) Rel Index Troponin T C-Reactive Protein Total Protein Albumin Prealbumin LDL Cholesterol Direct HDL Cholesterol Arterial Blood Glucose Arterial Blood Ionized Calcium Urine WBC (Auto) 05/09/20 05/10/20 05/10/20 23:19 04:59 11:28 WBC RBC Hgb Hct MCV MCH RDW Plt Count Lymph % (Auto) [place] % (Auto) Eos % (Auto) Lymph # (Auto) [place] # (Auto) Eos # (Auto) Seg Neutrophils % Seg Neuts % (Manual) Lymphocytes % (Manual) Monocytes % (Manual) Basophils % (Manual) Seg Neutrophils # Seg Neutrophils # Man Lymphocytes # (Manual) Monocytes # (Manual) Eosinophils # (Manual) Basophils # (Manual) PT INR D-Dimer ABG pH POC ABG pCO2 POC ABG pO2 ABG pO2 ABG HCO3 ABG O2 Saturation ABG Base Excess ABG Hemoglobin ABG Oxyhemoglobin ABG Potassium ABG Glucose Oxyhemoglobin Carboxyhemoglobin Sodium Potassium Chloride Carbon Dioxide BUN Creatinine Glucose POC Glucose 108 H 126 H 124 H Calcium Ferritin Total Bilirubin Alkaline Phosphatase Lactate Dehydrogenase Total Creatine Kinase CK-MB (CK-2) Rel Index Troponin T C-Reactive Protein Total Protein Albumin Prealbumin LDL Cholesterol Direct HDL Cholesterol Arterial Blood Glucose Arterial Blood Ionized Calcium Urine WBC (Auto) 05/10/20 05/11/20 05/11/20 23:56 06:13 11:44 WBC RBC Hgb Hct MCV MCH RDW Plt Count Lymph % (Auto) [place] % (Auto) Eos % (Auto) Lymph # (Auto) [place] # (Auto) Eos # (Auto) Seg Neutrophils % Seg Neuts % (Manual) Lymphocytes % (Manual) Monocytes % (Manual) Basophils % (Manual) Seg Neutrophils # Seg Neutrophils # Man Lymphocytes # (Manual) Monocytes # (Manual) Eosinophils # (Manual) Basophils # (Manual) PT INR D-Dimer ABG pH POC ABG pCO2 POC ABG pO2 ABG pO2 ABG HCO3 ABG O2 Saturation ABG Base Excess ABG Hemoglobin ABG Oxyhemoglobin ABG Potassium ABG Glucose Oxyhemoglobin Carboxyhemoglobin Sodium Potassium Chloride Carbon Dioxide BUN Creatinine Glucose POC Glucose 113 H 124 H 125 H Calcium Ferritin Total Bilirubin Alkaline Phosphatase Lactate Dehydrogenase Total Creatine Kinase CK-MB (CK-2) Rel Index Troponin T C-Reactive Protein Total Protein Albumin Prealbumin LDL Cholesterol Direct HDL Cholesterol Arterial Blood Glucose Arterial Blood Ionized Calcium Urine WBC (Auto) 05/12/20 05/12/20 05/12/20 06:04 12:17 17:23 WBC RBC Hgb Hct MCV MCH RDW Plt Count Lymph % (Auto) [place] % (Auto) Eos % (Auto) Lymph # (Auto) [place] # (Auto) Eos # (Auto) Seg Neutrophils % Seg Neuts % (Manual) Lymphocytes % (Manual) Monocytes % (Manual) Basophils % (Manual) Seg Neutrophils # Seg Neutrophils # Man Lymphocytes # (Manual) Monocytes # (Manual) Eosinophils # (Manual) Basophils # (Manual) PT INR D-Dimer ABG pH POC ABG pCO2 POC ABG pO2 ABG pO2 ABG HCO3 ABG O2 Saturation ABG Base Excess ABG Hemoglobin ABG Oxyhemoglobin ABG Potassium ABG Glucose Oxyhemoglobin Carboxyhemoglobin Sodium Potassium Chloride Carbon Dioxide BUN Creatinine Glucose POC Glucose 135 H 136 H 133 H Calcium Ferritin Total Bilirubin Alkaline Phosphatase Lactate Dehydrogenase Total Creatine Kinase CK-MB (CK-2) Rel Index Troponin T C-Reactive Protein Total Protein Albumin Prealbumin LDL Cholesterol Direct HDL Cholesterol Arterial Blood Glucose Arterial Blood Ionized Calcium Urine WBC (Auto) 05/12/20 05/13/20 05/13/20 23:34 05:36 11:25 WBC RBC Hgb Hct MCV MCH RDW Plt Count Lymph % (Auto) [place] % (Auto) Eos % (Auto) Lymph # (Auto) [place] # (Auto) Eos # (Auto) Seg Neutrophils % Seg Neuts % (Manual) Lymphocytes % (Manual) Monocytes % (Manual) Basophils % (Manual) Seg Neutrophils # Seg Neutrophils # Man Lymphocytes # (Manual) Monocytes # (Manual) Eosinophils # (Manual) Basophils # (Manual) PT INR D-Dimer ABG pH POC ABG pCO2 POC ABG pO2 ABG pO2 ABG HCO3 ABG O2 Saturation ABG Base Excess ABG Hemoglobin ABG Oxyhemoglobin ABG Potassium ABG Glucose Oxyhemoglobin Carboxyhemoglobin Sodium Potassium Chloride Carbon Dioxide BUN Creatinine Glucose POC Glucose 141 H 131 H 148 H Calcium Ferritin Total Bilirubin Alkaline Phosphatase Lactate Dehydrogenase Total Creatine Kinase CK-MB (CK-2) Rel Index Troponin T C-Reactive Protein Total Protein Albumin Prealbumin LDL Cholesterol Direct HDL Cholesterol Arterial Blood Glucose Arterial Blood Ionized Calcium Urine WBC (Auto) 05/13/20 05/14/20 05/14/20 16:40 00:11 05:03 WBC RBC Hgb Hct MCV MCH RDW Plt Count Lymph % (Auto) [place] % (Auto) Eos % (Auto) Lymph # (Auto) [place] # (Auto) Eos # (Auto) Seg Neutrophils % Seg Neuts % (Manual) Lymphocytes % (Manual) Monocytes % (Manual) Basophils % (Manual) Seg Neutrophils # Seg Neutrophils # Man Lymphocytes # (Manual) Monocytes # (Manual) Eosinophils # (Manual) Basophils # (Manual) PT INR D-Dimer ABG pH POC ABG pCO2 POC ABG pO2 ABG pO2 ABG HCO3 ABG O2 Saturation ABG Base Excess ABG Hemoglobin ABG Oxyhemoglobin ABG Potassium ABG Glucose Oxyhemoglobin Carboxyhemoglobin Sodium Potassium Chloride Carbon Dioxide BUN Creatinine Glucose POC Glucose 118 H 128 H 129 H Calcium Ferritin Total Bilirubin Alkaline Phosphatase Lactate Dehydrogenase Total Creatine Kinase CK-MB (CK-2) Rel Index Troponin T C-Reactive Protein Total Protein Albumin Prealbumin LDL Cholesterol Direct HDL Cholesterol Arterial Blood Glucose Arterial Blood Ionized Calcium Urine WBC (Auto) 05/14/20 05/15/20 05/16/20 11:38 23:46 05:20 WBC RBC Hgb Hct MCV MCH RDW Plt Count Lymph % (Auto) [place] % (Auto) Eos % (Auto) Lymph # (Auto) [place] # (Auto) Eos # (Auto) Seg Neutrophils % Seg Neuts % (Manual) Lymphocytes % (Manual) Monocytes % (Manual) Basophils % (Manual) Seg Neutrophils # Seg Neutrophils # Man Lymphocytes # (Manual) Monocytes # (Manual) Eosinophils # (Manual) Basophils # (Manual) PT INR D-Dimer ABG pH POC ABG pCO2 POC ABG pO2 ABG pO2 ABG HCO3 ABG O2 Saturation ABG Base Excess ABG Hemoglobin ABG Oxyhemoglobin ABG Potassium ABG Glucose Oxyhemoglobin Carboxyhemoglobin Sodium Potassium Chloride Carbon Dioxide BUN Creatinine Glucose POC Glucose 134 H 107 H 122 H Calcium Ferritin Total Bilirubin Alkaline Phosphatase Lactate Dehydrogenase Total Creatine Kinase CK-MB (CK-2) Rel Index Troponin T C-Reactive Protein Total Protein Albumin Prealbumin LDL Cholesterol Direct HDL Cholesterol Arterial Blood Glucose Arterial Blood Ionized Calcium Urine WBC (Auto) 05/16/20 05/16/20 05/18/20 11:57 23:51 11:18 WBC RBC Hgb Hct MCV MCH RDW Plt Count Lymph % (Auto) [place] % (Auto) Eos % (Auto) Lymph # (Auto) [place] # (Auto) Eos # (Auto) Seg Neutrophils % Seg Neuts % (Manual) Lymphocytes % (Manual) Monocytes % (Manual) Basophils % (Manual) Seg Neutrophils # Seg Neutrophils # Man Lymphocytes # (Manual) Monocytes # (Manual) Eosinophils # (Manual) Basophils # (Manual) PT INR D-Dimer ABG pH POC ABG pCO2 POC ABG pO2 ABG pO2 ABG HCO3 ABG O2 Saturation ABG Base Excess ABG Hemoglobin ABG Oxyhemoglobin ABG Potassium ABG Glucose Oxyhemoglobin Carboxyhemoglobin Sodium Potassium Chloride Carbon Dioxide BUN Creatinine Glucose POC Glucose 108 H 111 H 115 H Calcium Ferritin Total Bilirubin Alkaline Phosphatase Lactate Dehydrogenase Total Creatine Kinase CK-MB (CK-2) Rel Index Troponin T C-Reactive Protein Total Protein Albumin Prealbumin LDL Cholesterol Direct HDL Cholesterol Arterial Blood Glucose Arterial Blood Ionized Calcium Urine WBC (Auto) 05/18/20 05/18/20 05/19/20 16:18 23:38 05:07 WBC RBC Hgb Hct MCV MCH RDW Plt Count Lymph % (Auto) [place] % (Auto) Eos % (Auto) Lymph # (Auto) [place] # (Auto) Eos # (Auto) Seg Neutrophils % Seg Neuts % (Manual) Lymphocytes % (Manual) Monocytes % (Manual) Basophils % (Manual) Seg Neutrophils # Seg Neutrophils # Man Lymphocytes # (Manual) Monocytes # (Manual) Eosinophils # (Manual) Basophils # (Manual) PT INR D-Dimer ABG pH POC ABG pCO2 POC ABG pO2 ABG pO2 ABG HCO3 ABG O2 Saturation ABG Base Excess ABG Hemoglobin ABG Oxyhemoglobin ABG Potassium ABG Glucose Oxyhemoglobin Carboxyhemoglobin Sodium Potassium Chloride Carbon Dioxide BUN Creatinine Glucose POC Glucose 110 H 128 H 121 H Calcium Ferritin Total Bilirubin Alkaline Phosphatase Lactate Dehydrogenase Total Creatine Kinase CK-MB (CK-2) Rel Index Troponin T C-Reactive Protein Total Protein Albumin Prealbumin LDL Cholesterol Direct HDL Cholesterol Arterial Blood Glucose Arterial Blood Ionized Calcium Urine WBC (Auto) 05/19/20 05/19/20 05/19/20 11:36 16:49 23:17 WBC RBC Hgb Hct MCV MCH RDW Plt Count Lymph % (Auto) [place] % (Auto) Eos % (Auto) Lymph # (Auto) [place] # (Auto) Eos # (Auto) Seg Neutrophils % Seg Neuts % (Manual) Lymphocytes % (Manual) Monocytes % (Manual) Basophils % (Manual) Seg Neutrophils # Seg Neutrophils # Man Lymphocytes # (Manual) Monocytes # (Manual) Eosinophils # (Manual) Basophils # (Manual) PT INR D-Dimer ABG pH POC ABG pCO2 POC ABG pO2 ABG pO2 ABG HCO3 ABG O2 Saturation ABG Base Excess ABG Hemoglobin ABG Oxyhemoglobin ABG Potassium ABG Glucose Oxyhemoglobin Carboxyhemoglobin Sodium Potassium Chloride Carbon Dioxide BUN Creatinine Glucose POC Glucose 120 H 110 H 122 H Calcium Ferritin Total Bilirubin Alkaline Phosphatase Lactate Dehydrogenase Total Creatine Kinase CK-MB (CK-2) Rel Index Troponin T C-Reactive Protein Total Protein Albumin Prealbumin LDL Cholesterol Direct HDL Cholesterol Arterial Blood Glucose Arterial Blood Ionized Calcium Urine WBC (Auto) 05/20/20 05/20/20 05/21/20 05:17 23:55 04:18 WBC RBC Hgb 11.2 L Hct 35.4 L MCV 81 L MCH 25 L RDW 18.2 H Plt Count 458 H Lymph % (Auto) [place] % (Auto) 8.8 H Eos % (Auto) 7.2 H Lymph # (Auto) [place] # (Auto) Eos # (Auto) 0.6 H Seg Neutrophils % Seg Neuts % (Manual) Lymphocytes % (Manual) Monocytes % (Manual) Basophils % (Manual) Seg Neutrophils # Seg Neutrophils # Man Lymphocytes # (Manual) Monocytes # (Manual) Eosinophils # (Manual) Basophils # (Manual) PT INR D-Dimer ABG pH POC ABG pCO2 POC ABG pO2 ABG pO2 ABG HCO3 ABG O2 Saturation ABG Base Excess ABG Hemoglobin ABG Oxyhemoglobin ABG Potassium ABG Glucose Oxyhemoglobin Carboxyhemoglobin Sodium Potassium Chloride Carbon Dioxide BUN Creatinine Glucose POC Glucose 133 H 128 H Calcium Ferritin Total Bilirubin Alkaline Phosphatase Lactate Dehydrogenase Total Creatine Kinase CK-MB (CK-2) Rel Index Troponin T C-Reactive Protein Total Protein Albumin Prealbumin LDL Cholesterol Direct HDL Cholesterol Arterial Blood Glucose Arterial Blood Ionized Calcium Urine WBC (Auto) 05/21/20 05/21/20 05/21/20 04:18 05:02 23:53 WBC RBC Hgb Hct MCV MCH RDW Plt Count Lymph % (Auto) [place] % (Auto) Eos % (Auto) Lymph # (Auto) [place] # (Auto) Eos # (Auto) Seg Neutrophils % Seg Neuts % (Manual) Lymphocytes % (Manual) Monocytes % (Manual) Basophils % (Manual) Seg Neutrophils # Seg Neutrophils # Man Lymphocytes # (Manual) Monocytes # (Manual) Eosinophils # (Manual) Basophils # (Manual) PT INR D-Dimer ABG pH POC ABG pCO2 POC ABG pO2 ABG pO2 ABG HCO3 ABG O2 Saturation ABG Base Excess ABG Hemoglobin ABG Oxyhemoglobin ABG Potassium ABG Glucose Oxyhemoglobin Carboxyhemoglobin Sodium Potassium Chloride 97.2 L Carbon Dioxide 35 H BUN Creatinine < 0.2 L Glucose 128 H POC Glucose 125 H 114 H Calcium Ferritin Total Bilirubin Alkaline Phosphatase Lactate Dehydrogenase Total Creatine Kinase CK-MB (CK-2) Rel Index Troponin T C-Reactive Protein Total Protein Albumin Prealbumin LDL Cholesterol Direct HDL Cholesterol Arterial Blood Glucose Arterial Blood Ionized Calcium Urine WBC (Auto) 05/22/20 05/22/20 05/23/20 05:21 11:35 00:06 WBC RBC Hgb Hct MCV MCH RDW Plt Count Lymph % (Auto) [place] % (Auto) Eos % (Auto) Lymph # (Auto) [place] # (Auto) Eos # (Auto) Seg Neutrophils % Seg Neuts % (Manual) Lymphocytes % (Manual) Monocytes % (Manual) Basophils % (Manual) Seg Neutrophils # Seg Neutrophils # Man Lymphocytes # (Manual) Monocytes # (Manual) Eosinophils # (Manual) Basophils # (Manual) PT INR D-Dimer ABG pH POC ABG pCO2 POC ABG pO2 ABG pO2 ABG HCO3 ABG O2 Saturation ABG Base Excess ABG Hemoglobin ABG Oxyhemoglobin ABG Potassium ABG Glucose Oxyhemoglobin Carboxyhemoglobin Sodium Potassium Chloride Carbon Dioxide BUN Creatinine Glucose POC Glucose 127 H 114 H 115 H Calcium Ferritin Total Bilirubin Alkaline Phosphatase Lactate Dehydrogenase Total Creatine Kinase CK-MB (CK-2) Rel Index Troponin T C-Reactive Protein Total Protein Albumin Prealbumin LDL Cholesterol Direct HDL Cholesterol Arterial Blood Glucose Arterial Blood Ionized Calcium Urine WBC (Auto) 05/23/20 05/23/20 05/23/20 05:44 12:07 17:59 WBC RBC Hgb Hct MCV MCH RDW Plt Count Lymph % (Auto) [place] % (Auto) Eos % (Auto) Lymph # (Auto) [place] # (Auto) Eos # (Auto) Seg Neutrophils % Seg Neuts % (Manual) Lymphocytes % (Manual) Monocytes % (Manual) Basophils % (Manual) Seg Neutrophils # Seg Neutrophils # Man Lymphocytes # (Manual) Monocytes # (Manual) Eosinophils # (Manual) Basophils # (Manual) PT INR D-Dimer ABG pH POC ABG pCO2 POC ABG pO2 ABG pO2 ABG HCO3 ABG O2 Saturation ABG Base Excess ABG Hemoglobin ABG Oxyhemoglobin ABG Potassium ABG Glucose Oxyhemoglobin Carboxyhemoglobin Sodium Potassium Chloride Carbon Dioxide BUN Creatinine Glucose POC Glucose 110 H 128 H 125 H Calcium Ferritin Total Bilirubin Alkaline Phosphatase Lactate Dehydrogenase Total Creatine Kinase CK-MB (CK-2) Rel Index Troponin T C-Reactive Protein Total Protein Albumin Prealbumin LDL Cholesterol Direct HDL Cholesterol Arterial Blood Glucose Arterial Blood Ionized Calcium Urine WBC (Auto) 05/24/20 05/24/20 05/25/20 05:09 23:05 05:33 WBC RBC Hgb Hct MCV MCH RDW Plt Count Lymph % (Auto) [place] % (Auto) Eos % (Auto) Lymph # (Auto) [place] # (Auto) Eos # (Auto) Seg Neutrophils % Seg Neuts % (Manual) Lymphocytes % (Manual) Monocytes % (Manual) Basophils % (Manual) Seg Neutrophils # Seg Neutrophils # Man Lymphocytes # (Manual) Monocytes # (Manual) Eosinophils # (Manual) Basophils # (Manual) PT INR D-Dimer ABG pH POC ABG pCO2 POC ABG pO2 ABG pO2 ABG HCO3 ABG O2 Saturation ABG Base Excess ABG Hemoglobin ABG Oxyhemoglobin ABG Potassium ABG Glucose Oxyhemoglobin Carboxyhemoglobin Sodium Potassium Chloride Carbon Dioxide BUN Creatinine Glucose POC Glucose 115 H 113 H 118 H Calcium Ferritin Total Bilirubin Alkaline Phosphatase Lactate Dehydrogenase Total Creatine Kinase CK-MB (CK-2) Rel Index Troponin T C-Reactive Protein Total Protein Albumin Prealbumin LDL Cholesterol Direct HDL Cholesterol Arterial Blood Glucose Arterial Blood Ionized Calcium Urine WBC (Auto) 05/26/20 05/26/20 05:28 05:28 WBC 11.7 H RBC Hgb 10.4 L Hct 32.8 L MCV 79 L MCH 25 L RDW 18.2 H Plt Count Lymph % (Auto) [place] % (Auto) 7.5 H Eos % (Auto) Lymph # (Auto) [place] # (Auto) 0.9 H Eos # (Auto) Seg Neutrophils % 74.9 H Seg Neuts % (Manual) Lymphocytes % (Manual) Monocytes % (Manual) Basophils % (Manual) Seg Neutrophils # 8.8 H Seg Neutrophils # Man Lymphocytes # (Manual) Monocytes # (Manual) Eosinophils # (Manual) Basophils # (Manual) PT INR D-Dimer ABG pH POC ABG pCO2 POC ABG pO2 ABG pO2 ABG HCO3 ABG O2 Saturation ABG Base Excess ABG Hemoglobin ABG Oxyhemoglobin ABG Potassium ABG Glucose Oxyhemoglobin Carboxyhemoglobin Sodium Potassium Chloride 95.0 L Carbon Dioxide 39 H BUN Creatinine < 0.2 L Glucose 111 H POC Glucose Calcium Ferritin Total Bilirubin Alkaline Phosphatase Lactate Dehydrogenase Total Creatine Kinase CK-MB (CK-2) Rel Index Troponin T C-Reactive Protein Total Protein Albumin Prealbumin LDL Cholesterol Direct HDL Cholesterol Arterial Blood Glucose Arterial Blood Ionized Calcium Urine WBC (Auto) Chest x-ray: image reviewed Allied health notes reviewed: RT
[2020-05-26] MEDS: DOCUSATE SODIUM 100 MG/10 ML ORAL LIQD FEEDTUBE SCH (12:12)
[2020-05-26] MEDS: LANSOPRAZOLE 30 MG SOLUTAB FEEDTUBE SCH (12:12)
[2020-05-26] MEDS: TAMSULOSIN 0.4 MG CAP PO SCH (12:12)
[2020-05-26] MEDS: METOPROLOL TARTRATE 25 MG TAB PO SCH (12:12)
[2020-05-26] MEDS: BACLOFEN 10 MG TAB PO SCH (12:12)
[2020-05-26] MEDS: ASPIRIN EC 81 MG TAB PO SCH (12:13)
[2020-05-26] MEDS: PREGABALIN 75 MG CAP PO SCH (12:13)
[2020-05-26] MEDS: traMADol 50 MG TAB PO PRN (12:13)
[2020-05-26] MEDS: ALPRAZolam 0.5 MG TAB PO PRN (12:13)
[2020-05-26] MEDS: SCOPOLAMINE TRANSDERMAL PATCH 72 HR TD SCH (12:16)
[2020-05-26] MEDS: diphenhydrAMINE 25 MG CAP PO PRN (12:16)
[2020-05-26] MEDS: LIDOCAINE 5% 1 EACH PATCH TD SCH (12:16)
[2020-05-26] MEDS: GLYCOPYRROLATE 1 MG TAB PO SCH ×2 (12:24→16:11)
[2020-05-26] MEDS ORDERED: FUROSEMIDE 40 MG/4 ML INJ IV ONE (13:54)
--- NOTE | 2020-05-26 17:20 | Progress Note ---
Assessment and Plan cute hypoxic hypercapnic respiratory failure; Intubated on mechanical ventilation. Etiology secondary to sepsis, ALS, multifocal pneumonia (Covid negative). S/p trach placement 03/07/20 no new changes this time awaiting placement. --Status post cardiac arrest on 02/25, cardiac hernandez now stable --Dysphagia, status post PEG placement for tube feeding --ALS; Chronic Continue to provide supportive care --Elevated D-dimers; CTA chest, lower extremity venous Doppler both are negative Lovenox for DVT prophylaxis --Bilateral pneumonia; probably community-acquired Completed treatment ID recommendations appreciated --Sepsis secondary to pneumonia s/p empiric antibiotic --Elevated troponin; Serial cardiac enzymes, serial EKGs Echocardiogram, cardiology consult if needed --Hypernatremia Trend sodium Free water via feeding tube --Abdominal distention due to bladder outlet obstruction, resolved CT abdomen showed bladder outlet obstruction, urology consulted s/p drake placement by urology on 03/09 --Hypotension possibly from septic shock and bladder outlet obstruction improved following placing drake --Hypernatremia due to hypovolumia, resolved free water with TF --Constipation; resolved. 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 Patient was on a trilogy machine for breathing 18/11. EMS arrived, patient had O2 sats in the 80s. EMS attempted to place patient on their CPAP machine, however patient did not tolerate. Patient was admitted to the ICU with diagnosis of acute hypoxic respiratory failure and placed on BiPAP. Patient initially tolerated but later deteriorated with respiratory status. CTA chest showed no PE but significant for bilateral pneumonia. Doppler ultrasound also negative for DVT. COVID-19 test ordered and negative. Due to persistent hypoxia and asystolic/V. fib cardiac arrest, patient was intubated on 02/26/2020 at 1500. Patient now on mechanical ventilation in the ICU s/p trach placement and now unable to wean off from the mechanical ventilation. Patient now status post PEG placement for tube feeding. Patient most likely need long-term placement -LTAC versus SNF Daily Progress 02/25/2020. CTA of the chest reveals no PE but does illustrate the bilateral pneumonia. Doppler ultrasound also negative for DVT. Blood cultures are pending. Await COVID-19 testing. Patient currently requiring BiPAP IPAP 24/EPAP 6 with FiO2 of 25%. Continue O2 and BiPAP as clinically indicated. ID and pulmonary consulted. 02/26/2020. Blood cultures are negative x48 hours and Covid testing negative as well. Continue antibiotics per ID recommendations for community-acquired bilateral pneumonia. Cardiology consultation for elevated troponin. Check echocardiogram. 02/27/2020. Events of yesterday noted with asystole following V. fib arrest. Patient currently on AC mode rate 20, tidal volume 400, FiO2 50% and a PEEP of 6. Follow-up echocardiogram for elevated troponin. Cardiology suspects NSTEMI Type 2 in the setting of acute resp failure. Chest CTA and BLE Dopplers neg. we will discontinue Decadron given the Covid PCR is negative. 02/28/2020. I spoke with the sister Felisa Eli who is the power of admitted attorneys regarding advanced directives and she instructed me that she would like to continue with aggressive care at this time. I informed her of the guarded prognosis and high mortality/morbidity and she voiced understanding. Patient currently with AC mode ventilation rate 18, tidal volume 400, FiO2 40% and a PEEP of 6. Continue antibiotics for pneumonia. ID previously consulted. Also consult neurology with regards to ALS. 02/29/2020; patient is intubated and on CPAP patient is alert and oriented. Patient has ALS. Dr. Álvarez spoke with his sister and she wants aggressive care. Continue antibiotics for pneumonia. Neurology consulted for ALS. Prognosis poor 03/01/2020; patient is intubated and on CPAP, patient is alert and oriented. I spoke with his 2 sisters about the management plan. 03/02/2020; patient is intubated and on CPAP. Patient was alert and oriented. I spoke with Dr. mohr and he thinks patient may need mechanical ventilation, likely his disease progressed. Dr. Flowers did debridement this morning. 03/03/2020; patient is intubated and on CPAP, patient was on trilogy and BiPAP at home. Patient has ALS. on spontaneous breathing trial. Patient is alert and oriented but quadriplegic. Patient has severe bilateral pneumonia and is on cefepime and Vanco, ID is following. Patient has sacral decubitus ulcer and debridement was done by Dr. Flowers and there is no osteomyelitis. 03/05. Patient still on broad-spectrum antibiotics. Status post sacral decubitus ulcer debridements-no osteomyelitis. Patient is on AC 25/400/30% PEEP 5. No blood gas results today. 03/06. Plan for tracheostomy by surgery. Still remains intubated. Labs reviewed-sodium 150. Started on free water 200 every 8hr. trend sodium. 03/07: s/p trach placement today, patient placed back on mechanical ventilation with trach. Plan to resume tube feeding with NG tube. Continue to monitor vitals, monitor BMP. 03/08: Patient noted to have distended abdomen with low urinary output. Obtain bladder scan rule out urine retention, UA and urine culture, continue to follow clinically. 03/09: Patient noted to have low blood pressure with SBP as low as 70s. Ordered for 500 mils normal saline bolus. CT abdomen showed bladder outlet obstruction, urology consulted. 03/10: placed on drake by urology o/n, improved urine outpt. cont to monitor BMP. resuded TF - cont free water with TF. wean off from vent as tolerated. 03/11: Vitals stable. cont TF, wean off from vent as tolerated. start on 1/2 NS for hypernatremia - follow BMP 03/12: wean off vent as tolerated, plan for speech eval, cont Tf for now, cont iv fluid 03/13: unable to wean off from vent, unable to do speech therapy eval. will need PEG tube, cont supportive care for now, cont NG tube feeding 03/14: consulted GI for PEg placemnet, cont supportive care. remains on vent at night 03/15: Discussed with GI, plan for PEG tube placement possibly tomorrow. Continue supportive care and wean off from vent as tolerated. Hold Lovenox dose tonight. 03/16: family didnot consent for PEG placement yesterday. I spoke with the daughter today and she is now agreeable for PEG tube. I explained the necessity of the procedure with RN to the patient also and he nodded started on tube feeding, for the procedure. will cont supportive care. planned for PEG tube placement tomorrow. 03/17: s/p PEG placement today, patient tolerated well, cont supportive care 03/18: Started on tube feeding with new PEG tube, continue to wean off vent as tolerated 03/19: cont to monitor with supportive care, wean off vent as tolerated 03/20: Continue to wean off vent as tolerated -but failing weaning trial. Still requiring vent support at night. Currently on PEG tube for tube feed. 03/21. Pt with PSV trials with FiO@ 30%, PEEP 6, PS 10. Currently on PEG tube for tube feed. 03/22/2020. Continue PSV trials per pulmonary. Continue bronchodilators. Patient tolerating tube feedings. Continue Robinul for secretion control. 03/23/2020. Continue PSV trials per pulmonary. Continue bronchodilators. Continue Scopolamine and Robinul for secretion control. Trach care/airway management. Mobility protocols for pressure ulcer prophylaxis. LTAC evaluation per case management 03/24/2020. Continue PSV trials with current settings pressure support 10, PEEP 6 and FiO2 30%. Continue bronchodilators/nebulizer. Continue Scopolamine and Robinul for secretion control. Trach care/airway management. Mobility protocols for pressure ulcer prophylaxis. LTAC evaluation per case management 03/25/2020. Pulmonary to proceed with T-piece trials today. Continue bronchodilators/nebulizer. Continue Scopolamine and Robinul for secretion control. Trach care/airway management. Mobility protocols for pressure ulcer prophylaxis. 03/26/2020. Patient currently with PSV 10/6 at FiO2 of 30%. Continue weaning and T-piece trials per protocol. Continue bronchodilators/nebulizer. Continue Scopolamine and Robinul for secretion control. Trach care/airway management. Mobility protocols for pressure ulcer prophylaxis. Continue tube feeding with aspiration precautions. 03/27/2020. Patient currently with PSV 10/6 at FiO2 of 30%. Continue weaning and T-piece trials per protocol. Continue bronchodilators/nebulizer. Continue Scopolamine and Robinul for secretion control. Trach care/airway management. Mobility protocols for pressure ulcer prophylaxis. Continue tube feeding with aspiration precautions. 03/28. Had temp 100.7F. He has been off antibiotics. Will send blood culture, ua, urine culture and chest xray. Had chest pain overnight and trop was elevated as well. Cardiology to evaluate 03/29. Has back pain due to position. He mentions his chest pain is positional. Has no other complaints. Still on mechanical ventilation 03/30. No chest pain today. Labs reviewed. Discussed chest pain with cardiology and team advised no further work up at this time. Can follow up with cardiology in the office after hospitalization 03/31. Lidocaine patch for lower back pain. 04/01. Discharge planning underway. CM notes reviewed. Discussed with daughter 04/02. CM trying to arrange discharge. Continue PSV trials. Discussed with patients significant other 04/04/2020; CM is working for discharge arrangement. Continue PSV trials. 04/05/2020; patient was seen and evaluated this morning and no change from baseline. Continue with PSV trials. Follow with head coach for discharge planning. 04/06/2020;patient was seen and evaluated this morning and no change from baseline. Continue with PSV trials. Follow with head coach for discharge planning. 04/07/2020; patient was seen and evaluated this morning and no change from baseline. Continue with PSV trials. Follow with head coach for discharge planning. 04/08/2020; patient is vent dependent. Discharge is per head coach. 04/09/2020 patient is vent dependent, possible LTAC placement 04/10/2020; tracheostomy on vent, vent dependent pending LTAC placement 04/11/2020; clinically no change, tracheostomy on ventilatory support, wean as tolerated, awaiting placement 04/12/2020; remains on ventilatory support, unable to wean, patient wants to see a speech therapist for sound box However we cannot try that as long as he is on ventilatory support, once he is weaned off vent We will consult speech therapist, plan of care reviewed with the patient and his nurse 04/14/2020; clinically no change, on ventilatory support, complains of constipation, milk of magnesia Closely monitor the patient and adjust the management as needed 04/15/2020; patient has some oral thrush on the tongue, will give Magic mouthwash/nystatin swish and spit Wean off vent as tolerated 04/16 patient is alert and oriented, unable to comprehend what he is trying to tell but appears to complain of some pain, no acute events overnight, all interdisciplinary notes reviewed. Waiting for LTAC versus residential facility placement 04/17/2020. Continue supportive care with mechanical ventilation. Patient currently on AC mode rate 10, tidal volume 400 FiO2 30% with a PEEP of 6. Discharge planning per case management. 04/18/2020. Patient remains on mechanical ventilation AC mode rate 10, tidal volume 400, FiO2 30% and PEEP of 6. Continue spontaneous breathing trials as tolerated. Previously, patient was considered for discharge home with skilled staff providing care for 12 hours 7 days/week. Continue discussed with case management discharge planning. 04/19/20. Patient remains on mechanical ventilation AC mode rate 10, tidal volume 400, FiO2 30% and PEEP of 6. Continue spontaneous breathing trials as tolerated. 04/20/2020. Patient remains on mechanical ventilation AC mode rate 10, tidal volume 400, FiO2 30% and PEEP of 6. Continue spontaneous breathing trials as tolerated. 04/21/2020. Patient remains on mechanical ventilation AC mode rate 10, tidal volume 400, FiO2 30% and PEEP of 6. Continue tracheostomy care, secretion control and airway management. Continue spontaneous breathing trials as tolerated. 04/22/2020. Patient remains on mechanical ventilation AC mode rate 10, tidal volume 400, FiO2 30% and PEEP of 6. Continue tracheostomy care, secretion control and airway management. Continue spontaneous breathing trials as to lerated. 04/23/2020. Patient on mechanical ventilation AC mode rate 18, tidal volume 450, FiO2 30% and PEEP of 6. Continue tracheostomy care, secretion control and airway management. Continue spontaneous breathing trials as tolerated. Continue Robinul and scopolamine for secretions. Continue baclofen. 04/24/2020. Patient remains on AC mode ventilation rate 10, tidal volume 400, FiO2 30% and PEEP of 6. Continue tracheostomy care, secretion control and airway management. Continue spontaneous breathing trials as tolerated. Continue Robinul and scopolamine for secretions. Continue baclofen. Continue Xanax for anxiety and Ambien for sleep. Await case management follow-up with regards to discharge planning. 04/25/2020. Patient remains on AC mode ventilation rate 10, tidal volume 400, FiO2 30% and PEEP of 6. Continue tracheostomy care, secretion control and airway management. Continue spontaneous breathing trials as tolerated. Continue Robinul and scopolamine for secretions. Continue baclofen. Continue Xanax for anxiety and Ambien for sleep. Await case management follow-up with regards to discharge planning. 04/26. Patient remains on AC mode ventilation rate 10, tidal volume 400, FiO2 30% and PEEP of 6. Continue tracheostomy care, secretion control and airway management. Continue spontaneous breathing trials as tolerated. Continue Robinul and scopolamine for secretions. Continue baclofen. Continue Xanax for anxiety and Ambien for sleep. Await case management follow-up with regards to discharge planning. 04/27. Patient remains on AC mode ventilation rate 10, tidal volume 400, FiO2 30% and PEEP of 6. Continue tracheostomy care, secretion control and airway management. Continue spontaneous breathing trials as tolerated. Continue Robinul and scopolamine for secretions. Continue baclofen. Continue Xanax for anxiety and Ambien for sleep. Await case management follow-up with regards to discharge planning. 04/28/20 no acute events overnight, remains vent dependent, cardiology and pulmonary notes reviewed 04/29 remains intubated via tracheostomy, no acute events 04/30 no acute events overnight, cardiology note reviewed, remains vent dependent, discharge planning per case management 05/01 stable. cardiology and pulmonary notes reviewed. D/C acu-checks 05/02 - todate: Clinically stable, remains on vent with trach tube. CM working on placement. Continue supportive care. plan possibly to d/c home with HH, patient refusing SNF placement 05/26; patient remains on vent trach. Patient able to make needs known stated he wanted to go home. Plan is for patient to go home on Friday. Currently bringing the ventilation system that patient will have at home. Patient denies any pain. Able to make needs known with mild and. Remains trach PEG. Objective - Constitutional Vitals: Vital Signs - 12hr 05/26/20 05/26/20 05/26/20 06:00 07:01 08:00 Temperature 97.1 F L Pulse Rate 107 H 105 H 113 H Respiratory 22 22 Rate Blood Pressure 110/71 123/67 119/65 O2 Sat by Pulse 99 97 97 Oximetry O2 Sat by Pulse 98 Oximetry [ Assessment] 05/26/20 05/26/20 05/26/20 08:01 09:00 09:01 Temperature Pulse Rate 115 H 113 H 115 H Respiratory 26 H 25 H 24 Rate Blood Pressure 119/65 123/66 123/66 O2 Sat by Pulse 95 94 96 Oximetry O2 Sat by Pulse Oximetry [ Assessment] 05/26/20 05/26/20 05/26/20 10:00 11:01 12:00 Temperature 98.2 F Pulse Rate 113 H 97 H 108 H Respiratory 27 H 28 H 18 Rate Blood Pressure 129/84 193/114 160/98 O2 Sat by Pulse 98 87 92 Oximetry O2 Sat by Pulse Oximetry [ Assessment] 05/26/20 05/26/20 05/26/20 12:01 12:12 13:00 Temperature Pulse Rate 123 H 120 H 114 H Respiratory 21 27 H Rate Blood Pressure 148/74 148/74 160/98 O2 Sat by Pulse 97 84 Oximetry O2 Sat by Pulse Oximetry [ Assessment] 05/26/20 05/26/20 05/26/20 14:00 16:00 16:39 Temperature 98.5 F Pulse Rate 100 H 109 H Respiratory 19 Rate Blood Pressure 126/96 122/85 O2 Sat by Pulse 97 97 Oximetry O2 Sat by Pulse 98 Oximetry [ Assessment] 05/26/20 16:49 Temperature Pulse Rate Respiratory Rate Blood Pressure O2 Sat by Pulse 98 Oximetry O2 Sat by Pulse Oximetry [ Assessment] - Labs CBC & Chem 7: 05/26/20 05:28 05/26/20 05:28 Labs: Abnormal lab results 05/26/20 05/26/20 05/26/20 Range/Units 05:28 05:28 06:12 WBC 11.7 H (4.5-11.0) K/mm3 Hgb 10.4 L (11.8-15.2) gm/dl Hct 32.8 L (35.5-45.6) % MCV 79 L (84-94) fl MCH 25 L (28-32) pg RDW 18.2 H (13.2-15.2) % Blaine % (Auto) 7.5 H (0.0-7.3) % Blaine # (Auto) 0.9 H (0.0-0.8) K/mm3 Seg Neutrophils % 74.9 H (40.0-70.0) % Seg Neutrophils # 8.8 H (1.8-7.7) K/mm3 Chloride 95.0 L (98-107) mmol/L Carbon Dioxide 39 H (22-30) mmol/L Creatinine < 0.2 L (0.8-1.3) mg/dL Glucose 111 H (75-100) mg/dL POC Glucose 107 H (70-105) mg/dL 05/26/20 Range/Units 12:00 WBC (4.5-11.0) K/mm3 Hgb (11.8-15.2) gm/dl Hct (35.5-45.6) % MCV (84-94) fl MCH (28-32) pg RDW (13.2-15.2) % Blaine % (Auto) (0.0-7.3) % Blaine # (Auto) (0.0-0.8) K/mm3 Seg Neutrophils % (40.0-70.0) % Seg Neutrophils # (1.8-7.7) K/mm3 Chloride (98-107) mmol/L Carbon Dioxide (22-30) mmol/L Creatinine (0.8-1.3) mg/dL Glucose (75-100) mg/dL POC Glucose 135 H (70-105) mg/dL HEART Score - HEART Score Troponin: Troponin T 0.181 ng/mL (0.00-0.029) H* 04/24/20 05:28
[2020-05-27] MEDS: ENOXAPARIN 40 MG/0.4 ML INJ SUB-Q SCH ×2 (00:23→21:34)
[2020-05-27] MEDS: METOPROLOL TARTRATE 25 MG TAB PO SCH ×3 (00:24→21:32)
[2020-05-27] MEDS: PREGABALIN 75 MG CAP PO SCH ×3 (00:24→21:33)
[2020-05-27] MEDS: GLYCOPYRROLATE 1 MG TAB PO SCH ×4 (00:26→21:32)
[2020-05-27] MEDS: DOCUSATE SODIUM 100 MG/10 ML ORAL LIQD FEEDTUBE SCH ×3 (00:26→21:34)
[2020-05-27] MEDS: BACLOFEN 10 MG TAB PO SCH ×3 (00:26→21:33)
[2020-05-27] MEDS: SENNOSIDES 8.6 MG TAB PO SCH ×2 (00:27→21:33)
[2020-05-27] MEDS: ALPRAZolam 0.5 MG TAB PO PRN ×2 (09:07→17:12)
[2020-05-27] MEDS: ASPIRIN EC 81 MG TAB PO SCH (09:08)
[2020-05-27] MEDS: LANSOPRAZOLE 30 MG SOLUTAB FEEDTUBE SCH (09:08)
[2020-05-27] MEDS: TAMSULOSIN 0.4 MG CAP PO SCH (09:09)
[2020-05-27] MEDS: LIDOCAINE 5% 1 EACH PATCH TD SCH (09:22)
--- NOTE | 2020-05-27 11:17 | Progress Note ---
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 Respiratory Failure s/p trach Severe Sepsis with Shock Bilateral Pneumonia (Possible aspiration) History of ALS on Trilogy Oropharyngeal Dysphagia s/p PEG Acute toxic metabolic encephalopathy-resolved Elevated D-dimer Elevated troponin possibly type 2 ischemia Leukocytsois Continue to trend WCC and temperature curve Continue Ambien for sleep at night Continue all supportive care Discharge planning is ongoing- discussed with case management, patient will be on home vent for the next 48 hours with plan for discahrge home on Friday with home vent Significant other has done training - continue daytime PSV as tolerated -He is not tolerating ATP trials and is vent dependant. - ABG, CXR as clinically indicated - continue Robinul & scopolamine for secretion control - Keep K at 4, Mg at 2 and Phos at 2.5 to optimize respiratory muscle function - wound care per RN/WCN, off loading, frequent turning, mobility per facility protocol - wean supplemental oxygen for target O2 sats > 92% - VAP bundle addressed, aspiration precautions, HOB >40 - continue lung protective strategies - continue bronchodilators with pulmonary hygiene per RT - s/p empiric anti-infectives per ID recs (Rocephin and Zithromax) - enteral nutrition at goal rate as tolerated - accuchecks with glycemic control per SSI (While critically ill target blood glucose of 140-180 mg/dL; avoid hypoglycemia) - continue to avoid nephrotoxins, renal dose all medications - continue to avoid benzodiazepines, reduce the possibility of delirium - continue prn analgesia per CPOT score -continue to maintain of sleep-wake cycle -Continue stress ulcer and VTE prophylaxis (Famotidine and Enoxaparin) - continue to monitor hemodynamics closely - continue other care per attending / other consultants CONDITION: FAIR PROGNOSIS: FAIR CODE STATUS: FULL CODE Subjective Date of service: 05/27/20 Principal diagnosis: Ac on Ch Hypercapnic & hypoxemic Resp Failure; Severe Sepsis; Jamar PNA; ALS Interval history: Patient is seen today for: Acute on Chronic Hypercapnic & hypoxemic Respiratory Failure; Severe Sepsis with Shock; Bilateral Pneumonia (Possible aspiration); History of ALS on Trilogy; Acute toxic metabolic encephalopathy Seen and examined at bedside; 24hour events reviewed; nursing and respiratory care staff consulted; no adverse overnight events reported to me; resting in bed; remains on MVS; s/p trach and PEG Tolerating tube feedings. Tolerating PSV at the bedside, full support at night No fevers,no vomiting. Slept well last night. Phonates around the trach- No new issues Hernandez cash at the bedside and they are changing the hospital ventilator out for the home ventilator Objective Vital Signs - 12hr 05/27/20 05/27/20 05/27/20 00:00 00:24 00:30 Temperature 98.2 F Pulse Rate 102 H 91 H 101 H Respiratory 24 Rate Blood Pressure 138/105 138/105 138/105 O2 Sat by Pulse 97 97 Oximetry O2 Sat by Pulse Oximetry [ Assessment] 05/27/20 05/27/20 05/27/20 01:00 02:00 03:00 Temperature Pulse Rate 91 H 96 H 92 H Respiratory 21 22 18 Rate Blood Pressure 136/87 150/102 122/89 O2 Sat by Pulse 97 100 100 Oximetry O2 Sat by Pulse Oximetry [ Assessment] 05/27/20 05/27/20 05/27/20 04:00 04:27 05:00 Temperature 99.5 F Pulse Rate 94 H 110 H 101 H Respiratory 20 20 Rate Blood Pressure 118/74 118/74 118/74 O2 Sat by Pulse 100 96 100 Oximetry O2 Sat by Pulse 96 Oximetry [ Assessment] 05/27/20 05/27/20 05/27/20 06:00 07:00 08:00 Temperature 98.1 F Pulse Rate 97 H 96 H 98 H Respiratory 24 24 25 H Rate Blood Pressure 153/98 148/100 177/99 O2 Sat by Pulse 99 100 99 Oximetry O2 Sat by Pulse Oximetry [ Assessment] 05/27/20 05/27/20 05/27/20 08:56 09:00 09:08 Temperature Pulse Rate 103 H 96 H 94 H Respiratory 24 Rate Blood Pressure 166/112 175/107 175/107 O2 Sat by Pulse 98 100 Oximetry O2 Sat by Pulse 98 Oximetry [ Assessment] 05/27/20 05/27/20 10:00 11:00 Temperature Pulse Rate 104 H 113 H Respiratory 30 H 21 Rate Blood Pressure 145/104 137/94 O2 Sat by Pulse 93 98 Oximetry O2 Sat by Pulse Oximetry [ Assessment] Constitutional: appears uncomfortable, other (thin middle aged male with mildly increased respiratory effort at rest on MVS) Eyes: non-icteric ENT: oropharynx moist, other (S/P Tracheostomy) Neck: supple, no lymphadenopathy, no JVD Effort: mildly labored Ascultation: Bilateral: clear, diminished breath sounds (bases), wheezes, rhonchi (scant in bases) Percussion: Bilateral: not dull Cardiovascular: regular rate and rhythm, other (S1,S2, no murmurs) Gastrointestinal: normoactive bowel sounds, soft, non-tender, non-distended Integumentary: normal, decubitus ulcer (sacral / gluteal) Extremities: no cyanosis, no edema, pulses normal, other (atrophic looking limbs) Neurologic: pupils equal and round, other (motor strength in extremities 1-2/5, awake, alert, mouths words to make needs known) Psychiatric: depressed CBC and BMP: 05/26/20 05:28 05/26/20 05:28 ABG, PT/INR, D-dimer: ABG ABG pH 7.371 (7.320-7.450) 03/08/20 12:34 POC ABG pCO2 63.1 mmHg (32.0-48.0) H 03/08/20 12:34 ABG pCO2 60.1 mm Hg 03/06/20 04:34 POC ABG pO2 90.5 mmHg (83-108) 03/08/20 12:34 ABG pO2 88.6 mm Hg (80.0-90.0) 03/06/20 04:34 POC ABG HCO3 35.7 03/08/20 12:34 ABG O2 Saturation 97.0 % (95.0-99.0) 03/06/20 04:34 PT/INR, D-dimer PT 15.6 Sec. (12.2-14.9) H 02/24/20 09:19 INR 1.21 (0.87-1.13) H 02/24/20 09:19 D-Dimer 1311.96 ng/mlDDU (0-234) H 02/24/20 09:19 Abnormal lab findings: Abnormal Labs 02/24/20 02/24/20 02/24/20 09:19 09:19 09:19 WBC 20.2 H RBC 5.05 H Hgb Hct MCV MCH RDW 15.3 H Plt Count Lymph % (Auto) [place] % (Auto) Eos % (Auto) Lymph # (Auto) [place] # (Auto) Eos # (Auto) Seg Neutrophils % Seg Neuts % (Manual) 86.0 H Lymphocytes % (Manual) 1.0 L Monocytes % (Manual) Basophils % (Manual) Seg Neutrophils # Seg Neutrophils # Man 17.4 H Lymphocytes # (Manual) 0.2 L Monocytes # (Manual) Eosinophils # (Manual) Basophils # (Manual) PT 15.6 H INR 1.21 H D-Dimer 1311.96 H ABG pH POC ABG pCO2 POC ABG pO2 ABG pO2 ABG HCO3 ABG O2 Saturation ABG Base Excess ABG Hemoglobin ABG Oxyhemoglobin ABG Potassium ABG Glucose Oxyhemoglobin Carboxyhemoglobin Sodium 135 L Potassium 3.2 L Chloride 92.2 L Carbon Dioxide BUN 6 L Creatinine < 0.2 L Glucose 124 H POC Glucose Calcium Ferritin Total Bilirubin 2.30 H Alkaline Phosphatase 132 H Lactate Dehydrogenase Total Creatine Kinase CK-MB (CK-2) Rel Index Troponin T 0.080 H C-Reactive Protein Total Protein Albumin 3.6 L Prealbumin LDL Cholesterol Direct 41 L HDL Cholesterol Arterial Blood Glucose Arterial Blood Ionized Calcium Urine WBC (Auto) 02/24/20 02/24/20 02/24/20 09:19 09:58 10:01 WBC RBC Hgb Hct MCV MCH RDW Plt Count Lymph % (Auto) [place] % (Auto) Eos % (Auto) Lymph # (Auto) [place] # (Auto) Eos # (Auto) Seg Neutrophils % Seg Neuts % (Manual) Lymphocytes % (Manual) Monocytes % (Manual) Basophils % (Manual) Seg Neutrophils # Seg Neutrophils # Man Lymphocytes # (Manual) Monocytes # (Manual) Eosinophils # (Manual) Basophils # (Manual) PT INR D-Dimer ABG pH 7.176 L* POC ABG pCO2 POC ABG pO2 ABG pO2 91.2 H ABG HCO3 ABG O2 Saturation ABG Base Excess -4.6 L ABG Hemoglobin ABG Oxyhemoglobin ABG Potassium ABG Glucose Oxyhemoglobin 92.6 L Carboxyhemoglobin Sodium Potassium Chloride Carbon Dioxide BUN Creatinine Glucose POC Glucose Calcium Ferritin 1715.0 H Total Bilirubin Alkaline Phosphatase Lactate Dehydrogenase 303 H Total Creatine Kinase CK-MB (CK-2) Rel Index Troponin T C-Reactive Protein 26.10 H Total Protein Albumin Prealbumin LDL Cholesterol Direct HDL Cholesterol Arterial Blood Glucose Arterial Blood Ionized Calcium Urine WBC (Auto) 02/24/20 02/24/20 02/24/20 11:52 13:45 19:35 WBC RBC Hgb Hct MCV MCH RDW Plt Count Lymph % (Auto) [place] % (Auto) Eos % (Auto) Lymph # (Auto) [place] # (Auto) Eos # (Auto) Seg Neutrophils % Seg Neuts % (Manual) Lymphocytes % (Manual) Monocytes % (Manual) Basophils % (Manual) Seg Neutrophils # Seg Neutrophils # Man Lymphocytes # (Manual) Monocytes # (Manual) Eosinophils # (Manual) Basophils # (Manual) PT INR D-Dimer ABG pH 7.051 L* 7.300 L POC ABG pCO2 POC ABG pO2 ABG pO2 94.7 H 75.1 L ABG HCO3 18.0 L ABG O2 Saturation 93.5 L ABG Base Excess -6.8 L -7.8 L ABG Hemoglobin 13.2 L 11.9 L ABG Oxyhemoglobin ABG Potassium ABG Glucose Oxyhemoglobin 91.0 L 92.7 L Carboxyhemoglobin Sodium Potassium Chloride Carbon Dioxide BUN Creatinine Glucose POC Glucose Calcium Ferritin Total Bilirubin Alkaline Phosphatase Lactate Dehydrogenase Total Creatine Kinase CK-MB (CK-2) Rel Index Troponin T 0.034 H D C-Reactive Protein Total Protein Albumin Prealbumin LDL Cholesterol Direct HDL Cholesterol Arterial Blood Glucose Arterial Blood Ionized Calcium Urine WBC (Auto) 02/25/20 02/25/20 02/25/20 04:00 04:00 12:26 WBC 22.9 H RBC Hgb Hct MCV 83 L MCH 27 L RDW Plt Count 468 H Lymph % (Auto) [place] % (Auto) Eos % (Auto) Lymph # (Auto) [place] # (Auto) Eos # (Auto) Seg Neutrophils % Seg Neuts % (Manual) 89.0 H Lymphocytes % (Manual) 7.0 L Monocytes % (Manual) Basophils % (Manual) Seg Neutrophils # Seg Neutrophils # Man 20.4 H Lymphocytes # (Manual) Monocytes # (Manual) Eosinophils # (Manual) Basophils # (Manual) PT INR D-Dimer ABG pH POC ABG pCO2 POC ABG pO2 ABG pO2 ABG HCO3 ABG O2 Saturation ABG Base Excess ABG Hemoglobin ABG Oxyhemoglobin ABG Potassium 2.6 L ABG Glucose 142 H Oxyhemoglobin Carboxyhemoglobin Sodium Potassium 3.2 L Chloride Carbon Dioxide 18 L BUN Creatinine 0.2 L Glucose 114 H POC Glucose Calcium Ferritin Total Bilirubin Alkaline Phosphatase Lactate Dehydrogenase Total Creatine Kinase CK-MB (CK-2) Rel Index Troponin T C-Reactive Protein Total Protein Albumin 3.5 L Prealbumin LDL Cholesterol Direct HDL Cholesterol Arterial Blood Glucose 142 H Arterial Blood Ionized Calcium Urine WBC (Auto) 02/26/20 02/26/20 02/26/20 15:58 17:00 23:43 WBC RBC Hgb Hct MCV MCH RDW Plt Count Lymph % (Auto) [place] % (Auto) Eos % (Auto) Lymph # (Auto) [place] # (Auto) Eos # (Auto) Seg Neutrophils % Seg Neuts % (Manual) Lymphocytes % (Manual) Monocytes % (Manual) Basophils % (Manual) Seg Neutrophils # Seg Neutrophils # Man Lymphocytes # (Manual) Monocytes # (Manual) Eosinophils # (Manual) Basophils # (Manual) PT INR D-Dimer ABG pH 7.502 H POC ABG pCO2 POC ABG pO2 213.6 H ABG pO2 ABG HCO3 ABG O2 Saturation ABG Base Excess ABG Hemoglobin ABG Oxyhemoglobin 99.2 H ABG Potassium 2.9 L ABG Glucose 160 H Oxyhemoglobin Carboxyhemoglobin 0.4 L Sodium Potassium Chloride Carbon Dioxide BUN Creatinine Glucose POC Glucose 189 H 120 H Calcium Ferritin Total Bilirubin Alkaline Phosphatase Lactate Dehydrogenase Total Creatine Kinase CK-MB (CK-2) Rel Index Troponin T C-Reactive Protein Total Protein Albumin Prealbumin LDL Cholesterol Direct HDL Cholesterol Arterial Blood Glucose 160 H Arterial Blood Ionized Calcium 4.5 L Urine WBC (Auto) 02/27/20 02/27/20 02/27/20 05:00 07:04 17:45 WBC RBC Hgb Hct MCV MCH RDW Plt Count Lymph % (Auto) [place] % (Auto) Eos % (Auto) Lymph # (Auto) [place] # (Auto) Eos # (Auto) Seg Neutrophils % Seg Neuts % (Manual) Lymphocytes % (Manual) Monocytes % (Manual) Basophils % (Manual) Seg Neutrophils # Seg Neutrophils # Man Lymphocytes # (Manual) Monocytes # (Manual) Eosinophils # (Manual) Basophils # (Manual) PT INR D-Dimer ABG pH 7.524 H POC ABG pCO2 POC ABG pO2 ABG pO2 ABG HCO3 ABG O2 Saturation ABG Base Excess ABG Hemoglobin ABG Oxyhemoglobin ABG Potassium 3.0 L ABG Glucose 143 H Oxyhemoglobin Carboxyhemoglobin Sodium Potassium Chloride Carbon Dioxide BUN Creatinine Glucose POC Glucose 154 H 175 H Calcium Ferritin Total Bilirubin Alkaline Phosphatase Lactate Dehydrogenase Total Creatine Kinase CK-MB (CK-2) Rel Index Troponin T C-Reactive Protein Total Protein Albumin Prealbumin LDL Cholesterol Direct HDL Cholesterol Arterial Blood Glucose 143 H Arterial Blood Ionized Calcium Urine WBC (Auto) 02/27/20 02/28/20 02/28/20 Unknown 00:21 04:15 WBC 18.7 H RBC Hgb Hct MCV MCH RDW Plt Count Lymph % (Auto) 8.7 L [place] % (Auto) Eos % (Auto) Lymph # (Auto) [place] # (Auto) 1.2 H Eos # (Auto) Seg Neutrophils % 84.6 H Seg Neuts % (Manual) Lymphocytes % (Manual) Monocytes % (Manual) Basophils % (Manual) Seg Neutrophils # 15.9 H Seg Neutrophils # Man Lymphocytes # (Manual) Monocytes # (Manual) Eosinophils # (Manual) Basophils # (Manual) PT INR D-Dimer ABG pH POC ABG pCO2 POC ABG pO2 ABG pO2 ABG HCO3 ABG O2 Saturation ABG Base Excess ABG Hemoglobin ABG Oxyhemoglobin ABG Potassium ABG Glucose Oxyhemoglobin Carboxyhemoglobin Sodium Potassium 2.9 L* Chloride Carbon Dioxide 33 H D BUN Creatinine < 0.2 L Glucose 157 H POC Glucose 134 H Calcium Ferritin Total Bilirubin Alkaline Phosphatase Lactate Dehydrogenase Total Creatine Kinase CK-MB (CK-2) Rel Index Troponin T C-Reactive Protein Total Protein Albumin Prealbumin LDL Cholesterol Direct HDL Cholesterol Arterial Blood Glucose Arterial Blood Ionized Calcium Urine WBC (Auto) 02/28/20 02/28/20 02/28/20 04:15 05:16 05:39 WBC RBC Hgb Hct MCV MCH RDW Plt Count Lymph % (Auto) [place] % (Auto) Eos % (Auto) Lymph # (Auto) [place] # (Auto) Eos # (Auto) Seg Neutrophils % Seg Neuts % (Manual) Lymphocytes % (Manual) Monocytes % (Manual) Basophils % (Manual) Seg Neutrophils # Seg Neutrophils # Man Lymphocytes # (Manual) Monocytes # (Manual) Eosinophils # (Manual) Basophils # (Manual) PT INR D-Dimer ABG pH POC ABG pCO2 POC ABG pO2 ABG pO2 142.9 H ABG HCO3 34.1 H ABG O2 Saturation ABG Base Excess 8.3 H ABG Hemoglobin ABG Oxyhemoglobin ABG Potassium ABG Glucose Oxyhemoglobin Carboxyhemoglobin Sodium 151 H Potassium Chloride Carbon Dioxide 32 H BUN Creatinine 0.2 L Glucose 167 H POC Glucose 138 H Calcium Ferritin Total Bilirubin Alkaline Phosphatase Lactate Dehydrogenase Total Creatine Kinase CK-MB (CK-2) Rel Index Troponin T C-Reactive Protein Total Protein Albumin Prealbumin LDL Cholesterol Direct HDL Cholesterol Arterial Blood Glucose Arterial Blood Ionized Calcium Urine WBC (Auto) 02/28/20 02/28/20 02/28/20 11:05 11:33 12:54 WBC RBC Hgb Hct MCV MCH RDW Plt Count Lymph % (Auto) [place] % (Auto) Eos % (Auto) Lymph # (Auto) [place] # (Auto) Eos # (Auto) Seg Neutrophils % Seg Neuts % (Manual) Lymphocytes % (Manual) Monocytes % (Manual) Basophils % (Manual) Seg Neutrophils # Seg Neutrophils # Man Lymphocytes # (Manual) Monocytes # (Manual) Eosinophils # (Manual) Basophils # (Manual) PT INR D-Dimer ABG pH POC ABG pCO2 POC ABG pO2 ABG pO2 ABG HCO3 ABG O2 Saturation ABG Base Excess ABG Hemoglobin ABG Oxyhemoglobin ABG Potassium ABG Glucose Oxyhemoglobin Carboxyhemoglobin Sodium Potassium Chloride Carbon Dioxide BUN Creatinine Glucose POC Glucose 160 H Calcium Ferritin Total Bilirubin Alkaline Phosphatase Lactate Dehydrogenase Total Creatine Kinase CK-MB (CK-2) Rel Index Troponin T C-Reactive Protein 4.70 H Total Protein Albumin Prealbumin 0.090 L LDL Cholesterol Direct HDL Cholesterol Arterial Blood Glucose Arterial Blood Ionized Calcium Urine WBC (Auto) 02/28/20 02/29/20 02/29/20 17:34 00:44 04:05 WBC 19.6 H RBC Hgb Hct MCV MCH 27 L RDW 15.4 H Plt Count Lymph % (Auto) [place] % (Auto) Eos % (Auto) Lymph # (Auto) [place] # (Auto) Eos # (Auto) Seg Neutrophils % Seg Neuts % (Manual) 86.0 H Lymphocytes % (Manual) 7.0 L Monocytes % (Manual) Basophils % (Manual) Seg Neutrophils # Seg Neutrophils # Man 16.9 H Lymphocytes # (Manual) Monocytes # (Manual) 1.2 H Eosinophils # (Manual) Basophils # (Manual) PT INR D-Dimer ABG pH POC ABG pCO2 POC ABG pO2 ABG pO2 ABG HCO3 ABG O2 Saturation ABG Base Excess ABG Hemoglobin ABG Oxyhemoglobin ABG Potassium ABG Glucose Oxyhemoglobin Carboxyhemoglobin Sodium Potassium Chloride Carbon Dioxide BUN Creatinine Glucose POC Glucose 136 H 156 H Calcium Ferritin Total Bilirubin Alkaline Phosphatase Lactate Dehydrogenase Total Creatine Kinase CK-MB (CK-2) Rel Index Troponin T C-Reactive Protein Total Protein Albumin Prealbumin LDL Cholesterol Direct HDL Cholesterol Arterial Blood Glucose Arterial Blood Ionized Calcium Urine WBC (Auto) 02/29/20 02/29/20 02/29/20 04:05 05:14 05:33 WBC RBC Hgb Hct MCV MCH RDW Plt Count Lymph % (Auto) [place] % (Auto) Eos % (Auto) Lymph # (Auto) [place] # (Auto) Eos # (Auto) Seg Neutrophils % Seg Neuts % (Manual) Lymphocytes % (Manual) Monocytes % (Manual) Basophils % (Manual) Seg Neutrophils # Seg Neutrophils # Man Lymphocytes # (Manual) Monocytes # (Manual) Eosinophils # (Manual) Basophils # (Manual) PT INR D-Dimer ABG pH POC ABG pCO2 54.3 H POC ABG pO2 124.8 H ABG pO2 ABG HCO3 ABG O2 Saturation ABG Base Excess ABG Hemoglobin ABG Oxyhemoglobin ABG Potassium ABG Glucose 185 H Oxyhemoglobin Carboxyhemoglobin Sodium 148 H Potassium Chloride Carbon Dioxide 33 H BUN Creatinine < 0.2 L Glucose 173 H POC Glucose 152 H Calcium Ferritin Total Bilirubin Alkaline Phosphatase Lactate Dehydrogenase Total Creatine Kinase CK-MB (CK-2) Rel Index Troponin T C-Reactive Protein Total Protein Albumin Prealbumin LDL Cholesterol Direct HDL Cholesterol Arterial Blood Glucose 185 H Arterial Blood Ionized Calcium Urine WBC (Auto) 03/01/20 03/01/20 03/01/20 00:00 03:45 04:33 WBC 23.1 H RBC Hgb Hct MCV MCH 27 L RDW 15.3 H Plt Count Lymph % (Auto) [place] % (Auto) Eos % (Auto) Lymph # (Auto) [place] # (Auto) Eos # (Auto) Seg Neutrophils % Seg Neuts % (Manual) 92.0 H Lymphocytes % (Manual) 6.0 L Monocytes % (Manual) Basophils % (Manual) Seg Neutrophils # Seg Neutrophils # Man 21.3 H Lymphocytes # (Manual) Monocytes # (Manual) Eosinophils # (Manual) 0.5 H Basophils # (Manual) PT INR D-Dimer ABG pH 7.492 H POC ABG pCO2 POC ABG pO2 ABG pO2 157.1 H ABG HCO3 32.3 H ABG O2 Saturation ABG Base Excess 8.1 H ABG Hemoglobin 13.2 L ABG Oxyhemoglobin ABG Potassium ABG Glucose Oxyhemoglobin Carboxyhemoglobin Sodium Potassium Chloride Carbon Dioxide BUN Creatinine Glucose POC Glucose 109 H Calcium Ferritin Total Bilirubin Alkaline Phosphatase Lactate Dehydrogenase Total Creatine Kinase CK-MB (CK-2) Rel Index Troponin T C-Reactive Protein Total Protein Albumin Prealbumin LDL Cholesterol Direct HDL Cholesterol Arterial Blood Glucose Arterial Blood Ionized Calcium Urine WBC (Auto) 03/01/20 03/01/20 03/01/20 04:33 05:29 12:32 WBC RBC Hgb Hct MCV MCH RDW Plt Count Lymph % (Auto) [place] % (Auto) Eos % (Auto) Lymph # (Auto) [place] # (Auto) Eos # (Auto) Seg Neutrophils % Seg Neuts % (Manual) Lymphocytes % (Manual) Monocytes % (Manual) Basophils % (Manual) Seg Neutrophils # Seg Neutrophils # Man Lymphocytes # (Manual) Monocytes # (Manual) Eosinophils # (Manual) Basophils # (Manual) PT INR D-Dimer ABG pH POC ABG pCO2 POC ABG pO2 ABG pO2 ABG HCO3 ABG O2 Saturation ABG Base Excess ABG Hemoglobin ABG Oxyhemoglobin ABG Potassium ABG Glucose Oxyhemoglobin Carboxyhemoglobin Sodium 146 H Potassium Chloride Carbon Dioxide 32 H BUN Creatinine < 0.2 L Glucose 120 H POC Glucose 120 H 128 H Calcium Ferritin Total Bilirubin Alkaline Phosphatase Lactate Dehydrogenase Total Creatine Kinase CK-MB (CK-2) Rel Index Troponin T C-Reactive Protein Total Protein Albumin Prealbumin LDL Cholesterol Direct HDL Cholesterol Arterial Blood Glucose Arterial Blood Ionized Calcium Urine WBC (Auto) 03/01/20 03/01/20 03/02/20 17:38 23:46 06:13 WBC RBC Hgb Hct MCV MCH RDW Plt Count Lymph % (Auto) [place] % (Auto) Eos % (Auto) Lymph # (Auto) [place] # (Auto) Eos # (Auto) Seg Neutrophils % Seg Neuts % (Manual) Lymphocytes % (Manual) Monocytes % (Manual) Basophils % (Manual) Seg Neutrophils # Seg Neutrophils # Man Lymphocytes # (Manual) Monocytes # (Manual) Eosinophils # (Manual) Basophils # (Manual) PT INR D-Dimer ABG pH POC ABG pCO2 POC ABG pO2 ABG pO2 ABG HCO3 ABG O2 Saturation ABG Base Excess ABG Hemoglobin ABG Oxyhemoglobin ABG Potassium ABG Glucose Oxyhemoglobin Carboxyhemoglobin Sodium Potassium Chloride Carbon Dioxide BUN Creatinine Glucose POC Glucose 114 H 121 H 120 H Calcium Ferritin Total Bilirubin Alkaline Phosphatase Lactate Dehydrogenase Total Creatine Kinase CK-MB (CK-2) Rel Index Troponin T C-Reactive Protein Total Protein Albumin Prealbumin LDL Cholesterol Direct HDL Cholesterol Arterial Blood Glucose Arterial Blood Ionized Calcium Urine WBC (Auto) 03/02/20 03/02/20 03/03/20 09:47 09:47 10:21 WBC 23.6 H RBC Hgb Hct MCV MCH RDW 15.3 H Plt Count 494 H Lymph % (Auto) [place] % (Auto) Eos % (Auto) Lymph # (Auto) [place] # (Auto) Eos # (Auto) Seg Neutrophils % Seg Neuts % (Manual) 85.0 H Lymphocytes % (Manual) 6.0 L Monocytes % (Manual) Basophils % (Manual) Seg Neutrophils # Seg Neutrophils # Man 20.1 H Lymphocytes # (Manual) Monocytes # (Manual) 1.7 H Eosinophils # (Manual) Basophils # (Manual) PT INR D-Dimer ABG pH POC ABG pCO2 POC ABG pO2 ABG pO2 ABG HCO3 ABG O2 Saturation ABG Base Excess ABG Hemoglobin ABG Oxyhemoglobin ABG Potassium 3.3 L ABG Glucose 158 H Oxyhemoglobin Carboxyhemoglobin Sodium Potassium Chloride Carbon Dioxide BUN Creatinine < 0.2 L Glucose 177 H POC Glucose Calcium Ferritin Total Bilirubin Alkaline Phosphatase Lactate Dehydrogenase Total Creatine Kinase CK-MB (CK-2) Rel Index Troponin T C-Reactive Protein Total Protein Albumin Prealbumin LDL Cholesterol Direct HDL Cholesterol Arterial Blood Glucose 158 H Arterial Blood Ionized Calcium Urine WBC (Auto) 03/03/20 03/04/20 03/04/20 21:30 00:00 12:23 WBC RBC Hgb Hct MCV MCH RDW Plt Count Lymph % (Auto) [place] % (Auto) Eos % (Auto) Lymph # (Auto) [place] # (Auto) Eos # (Auto) Seg Neutrophils % Seg Neuts % (Manual) Lymphocytes % (Manual) Monocytes % (Manual) Basophils % (Manual) Seg Neutrophils # Seg Neutrophils # Man Lymphocytes # (Manual) Monocytes # (Manual) Eosinophils # (Manual) Basophils # (Manual) PT INR D-Dimer ABG pH 7.328 L POC ABG pCO2 POC ABG pO2 ABG pO2 68.4 L ABG HCO3 35.0 H ABG O2 Saturation 93.9 L ABG Base Excess 6.8 H ABG Hemoglobin 12.7 L ABG Oxyhemoglobin ABG Potassium ABG Glucose Oxyhemoglobin 91.9 L Carboxyhemoglobin Sodium Potassium Chloride Carbon Dioxide BUN Creatinine Glucose POC Glucose 187 H 163 H Calcium Ferritin Total Bilirubin Alkaline Phosphatase Lactate Dehydrogenase Total Creatine Kinase CK-MB (CK-2) Rel Index Troponin T C-Reactive Protein Total Protein Albumin Prealbumin LDL Cholesterol Direct HDL Cholesterol Arterial Blood Glucose Arterial Blood Ionized Calcium Urine WBC (Auto) 03/04/20 03/04/20 03/05/20 18:15 21:30 06:02 WBC RBC Hgb Hct MCV MCH RDW Plt Count Lymph % (Auto) [place] % (Auto) Eos % (Auto) Lymph # (Auto) [place] # (Auto) Eos # (Auto) Seg Neutrophils % Seg Neuts % (Manual) Lymphocytes % (Manual) Monocytes % (Manual) Basophils % (Manual) Seg Neutrophils # Seg Neutrophils # Man Lymphocytes # (Manual) Monocytes # (Manual) Eosinophils # (Manual) Basophils # (Manual) PT INR D-Dimer ABG pH 7.297 L POC ABG pCO2 POC ABG pO2 ABG pO2 ABG HCO3 41.0 H ABG O2 Saturation ABG Base Excess 11.0 H ABG Hemoglobin 13.1 L ABG Oxyhemoglobin ABG Potassium ABG Glucose Oxyhemoglobin 94.5 L Carboxyhemoglobin Sodium Potassium Chloride Carbon Dioxide BUN Creatinine Glucose POC Glucose 192 H 127 H Calcium Ferritin Total Bilirubin Alkaline Phosphatase Lactate Dehydrogenase Total Creatine Kinase CK-MB (CK-2) Rel Index Troponin T C-Reactive Protein Total Protein Albumin Prealbumin LDL Cholesterol Direct HDL Cholesterol Arterial Blood Glucose Arterial Blood Ionized Calcium Urine WBC (Auto) 03/05/20 03/05/20 03/06/20 12:09 16:42 00:24 WBC RBC Hgb Hct MCV MCH RDW Plt Count Lymph % (Auto) [place] % (Auto) Eos % (Auto) Lymph # (Auto) [place] # (Auto) Eos # (Auto) Seg Neutrophils % Seg Neuts % (Manual) Lymphocytes % (Manual) Monocytes % (Manual) Basophils % (Manual) Seg Neutrophils # Seg Neutrophils # Man Lymphocytes # (Manual) Monocytes # (Manual) Eosinophils # (Manual) Basophils # (Manual) PT INR D-Dimer ABG pH POC ABG pCO2 POC ABG pO2 ABG pO2 ABG HCO3 ABG O2 Saturation ABG Base Excess ABG Hemoglobin ABG Oxyhemoglobin ABG Potassium ABG Glucose Oxyhemoglobin Carboxyhemoglobin Sodium Potassium Chloride Carbon Dioxide BUN Creatinine Glucose POC Glucose 147 H 114 H 134 H Calcium Ferritin Total Bilirubin Alkaline Phosphatase Lactate Dehydrogenase Total Creatine Kinase CK-MB (CK-2) Rel Index Troponin T C-Reactive Protein Total Protein Albumin Prealbumin LDL Cholesterol Direct HDL Cholesterol Arterial Blood Glucose Arterial Blood Ionized Calcium Urine WBC (Auto) 03/06/20 03/06/20 03/06/20 04:34 05:53 06:08 WBC 25.4 H RBC Hgb 10.5 L Hct 32.7 L MCV MCH 27 L RDW 15.3 H Plt Count 634 H Lymph % (Auto) [place] % (Auto) Eos % (Auto) Lymph # (Auto) [place] # (Auto) Eos # (Auto) Seg Neutrophils % Seg Neuts % (Manual) 88.0 H Lymphocytes % (Manual) 2.0 L Monocytes % (Manual) 8.0 H Basophils % (Manual) Seg Neutrophils # Seg Neutrophils # Man 22.4 H Lymphocytes # (Manual) 0.5 L Monocytes # (Manual) 2.0 H Eosinophils # (Manual) Basophils # (Manual) PT INR D-Dimer ABG pH POC ABG pCO2 POC ABG pO2 ABG pO2 ABG HCO3 37.9 H ABG O2 Saturation ABG Base Excess 11.4 H ABG Hemoglobin 10.6 L ABG Oxyhemoglobin ABG Potassium ABG Glucose Oxyhemoglobin 94.7 L Carboxyhemoglobin Sodium Potassium Chloride Carbon Dioxide BUN Creatinine Glucose POC Glucose 135 H Calcium Ferritin Total Bilirubin Alkaline Phosphatase Lactate Dehydrogenase Total Creatine Kinase CK-MB (CK-2) Rel Index Troponin T C-Reactive Protein Total Protein Albumin Prealbumin LDL Cholesterol Direct HDL Cholesterol Arterial Blood Glucose Arterial Blood Ionized Calcium Urine WBC (Auto) 03/06/20 03/06/20 03/06/20 06:08 12:19 19:10 WBC RBC Hgb Hct MCV MCH RDW Plt Count Lymph % (Auto) [place] % (Auto) Eos % (Auto) Lymph # (Auto) [place] # (Auto) Eos # (Auto) Seg Neutrophils % Seg Neuts % (Manual) Lymphocytes % (Manual) Monocytes % (Manual) Basophils % (Manual) Seg Neutrophils # Seg Neutrophils # Man Lymphocytes # (Manual) Monocytes # (Manual) Eosinophils # (Manual) Basophils # (Manual) PT INR D-Dimer ABG pH POC ABG pCO2 POC ABG pO2 ABG pO2 ABG HCO3 ABG O2 Saturation ABG Base Excess ABG Hemoglobin ABG Oxyhemoglobin ABG Potassium ABG Glucose Oxyhemoglobin Carboxyhemoglobin Sodium 150 H D Potassium Chloride Carbon Dioxide 39 H D BUN 23 H Creatinine < 0.2 L Glucose 144 H POC Glucose 169 H 152 H Calcium Ferritin Total Bilirubin Alkaline Phosphatase Lactate Dehydrogenase Total Creatine Kinase CK-MB (CK-2) Rel Index Troponin T C-Reactive Protein Total Protein Albumin 3.3 L Prealbumin LDL Cholesterol Direct HDL Cholesterol Arterial Blood Glucose Arterial Blood Ionized Calcium Urine WBC (Auto) 03/06/20 03/07/20 03/07/20 23:58 04:25 04:25 WBC 22.1 H RBC Hgb 10.9 L Hct 32.9 L MCV MCH RDW 15.5 H Plt Count 739 H Lymph % (Auto) 7.8 L [place] % (Auto) Eos % (Auto) Lymph # (Auto) [place] # (Auto) 1.3 H Eos # (Auto) Seg Neutrophils % 85.5 H Seg Neuts % (Manual) Lymphocytes % (Manual) Monocytes % (Manual) Basophils % (Manual) Seg Neutrophils # 18.9 H Seg Neutrophils # Man Lymphocytes # (Manual) Monocytes # (Manual) Eosinophils # (Manual) Basophils # (Manual) PT INR D-Dimer ABG pH POC ABG pCO2 POC ABG pO2 ABG pO2 ABG HCO3 ABG O2 Saturation ABG Base Excess ABG Hemoglobin ABG Oxyhemoglobin ABG Potassium ABG Glucose Oxyhemoglobin Carboxyhemoglobin Sodium 146 H Potassium Chloride Carbon Dioxide 37 H BUN Creatinine < 0.2 L Glucose 118 H POC Glucose 111 H Calcium Ferritin Total Bilirubin Alkaline Phosphatase Lactate Dehydrogenase Total Creatine Kinase CK-MB (CK-2) Rel Index Troponin T C-Reactive Protein Total Protein Albumin 3.7 L Prealbumin LDL Cholesterol Direct HDL Cholesterol Arterial Blood Glucose Arterial Blood Ionized Calcium Urine WBC (Auto) 03/07/20 03/07/20 03/07/20 05:20 17:45 23:32 WBC RBC Hgb Hct MCV MCH RDW Plt Count Lymph % (Auto) [place] % (Auto) Eos % (Auto) Lymph # (Auto) [place] # (Auto) Eos # (Auto) Seg Neutrophils % Seg Neuts % (Manual) Lymphocytes % (Manual) Monocytes % (Manual) Basophils % (Manual) Seg Neutrophils # Seg Neutrophils # Man Lymphocytes # (Manual) Monocytes # (Manual) Eosinophils # (Manual) Basophils # (Manual) PT INR D-Dimer ABG pH POC ABG pCO2 POC ABG pO2 ABG pO2 ABG HCO3 ABG O2 Saturation ABG Base Excess ABG Hemoglobin ABG Oxyhemoglobin ABG Potassium ABG Glucose Oxyhemoglobin Carboxyhemoglobin Sodium Potassium Chloride Carbon Dioxide BUN Creatinine Glucose POC Glucose 113 H 124 H 210 H Calcium Ferritin Total Bilirubin Alkaline Phosphatase Lactate Dehydrogenase Total Creatine Kinase CK-MB (CK-2) Rel Index Troponin T C-Reactive Protein Total Protein Albumin Prealbumin LDL Cholesterol Direct HDL Cholesterol Arterial Blood Glucose Arterial Blood Ionized Calcium Urine WBC (Auto) 03/08/20 03/08/20 03/08/20 05:35 06:43 06:43 WBC 28.9 H RBC 3.53 L Hgb 9.7 L Hct 30.3 L MCV MCH RDW 15.6 H Plt Count 578 H Lymph % (Auto) [place] % (Auto) Eos % (Auto) Lymph # (Auto) [place] # (Auto) Eos # (Auto) Seg Neutrophils % Seg Neuts % (Manual) 93.0 H Lymphocytes % (Manual) 4.0 L Monocytes % (Manual) Basophils % (Manual) Seg Neutrophils # Seg Neutrophils # Man 26.9 H Lymphocytes # (Manual) Monocytes # (Manual) Eosinophils # (Manual) Basophils # (Manual) PT INR D-Dimer ABG pH POC ABG pCO2 POC ABG pO2 ABG pO2 ABG HCO3 ABG O2 Saturation ABG Base Excess ABG Hemoglobin ABG Oxyhemoglobin ABG Potassium ABG Glucose Oxyhemoglobin Carboxyhemoglobin Sodium 146 H Potassium Chloride Carbon Dioxide 35 H BUN 34 H Creatinine 0.3 L D Glucose 125 H POC Glucose 147 H Calcium Ferritin Total Bilirubin Alkaline Phosphatase Lactate Dehydrogenase Total Creatine Kinase CK-MB (CK-2) Rel Index Troponin T C-Reactive Protein Total Protein 5.9 L Albumin 3.2 L Prealbumin LDL Cholesterol Direct HDL Cholesterol Arterial Blood Glucose Arterial Blood Ionized Calcium Urine WBC (Auto) 03/08/20 03/08/20 03/08/20 08:57 11:14 12:34 WBC RBC Hgb Hct MCV MCH RDW Plt Count Lymph % (Auto) [place] % (Auto) Eos % (Auto) Lymph # (Auto) [place] # (Auto) Eos # (Auto) Seg Neutrophils % Seg Neuts % (Manual) Lymphocytes % (Manual) Monocytes % (Manual) Basophils % (Manual) Seg Neutrophils # Seg Neutrophils # Man Lymphocytes # (Manual) Monocytes # (Manual) Eosinophils # (Manual) Basophils # (Manual) PT INR D-Dimer ABG pH POC ABG pCO2 63.1 H POC ABG pO2 ABG pO2 ABG HCO3 ABG O2 Saturation ABG Base Excess ABG Hemoglobin 10.9 L ABG Oxyhemoglobin ABG Potassium ABG Glucose 176 H Oxyhemoglobin Carboxyhemoglobin Sodium Potassium Chloride Carbon Dioxide BUN Creatinine Glucose POC Glucose 171 H Calcium Ferritin Total Bilirubin Alkaline Phosphatase Lactate Dehydrogenase Total Creatine Kinase CK-MB (CK-2) Rel Index Troponin T C-Reactive Protein Total Protein Albumin Prealbumin LDL Cholesterol Direct HDL Cholesterol Arterial Blood Glucose 176 H Arterial Blood Ionized Calcium 4.5 L Urine WBC (Auto) 10.0 H 03/08/20 03/08/20 03/09/20 18:02 23:43 05:49 WBC RBC Hgb Hct MCV MCH RDW Plt Count Lymph % (Auto) [place] % (Auto) Eos % (Auto) Lymph # (Auto) [place] # (Auto) Eos # (Auto) Seg Neutrophils % Seg Neuts % (Manual) Lymphocytes % (Manual) Monocytes % (Manual) Basophils % (Manual) Seg Neutrophils # Seg Neutrophils # Man Lymphocytes # (Manual) Monocytes # (Manual) Eosinophils # (Manual) Basophils # (Manual) PT INR D-Dimer ABG pH POC ABG pCO2 POC ABG pO2 ABG pO2 ABG HCO3 ABG O2 Saturation ABG Base Excess ABG Hemoglobin ABG Oxyhemoglobin ABG Potassium ABG Glucose Oxyhemoglobin Carboxyhemoglobin Sodium Potassium Chloride Carbon Dioxide BUN Creatinine Glucose POC Glucose 157 H 134 H 163 H Calcium Ferritin Total Bilirubin Alkaline Phosphatase Lactate Dehydrogenase Total Creatine Kinase CK-MB (CK-2) Rel Index Troponin T C-Reactive Protein Total Protein Albumin Prealbumin LDL Cholesterol Direct HDL Cholesterol Arterial Blood Glucose Arterial Blood Ionized Calcium Urine WBC (Auto) 03/09/20 03/09/20 03/09/20 08:35 08:35 12:11 WBC 23.4 H RBC 3.36 L Hgb 9.3 L Hct 28.8 L MCV MCH RDW 15.9 H Plt Count 521 H Lymph % (Auto) [place] % (Auto) Eos % (Auto) Lymph # (Auto) [place] # (Auto) Eos # (Auto) Seg Neutrophils % Seg Neuts % (Manual) 87.0 H Lymphocytes % (Manual) 4.0 L Monocytes % (Manual) 9.0 H Basophils % (Manual) Seg Neutrophils # Seg Neutrophils # Man 20.4 H Lymphocytes # (Manual) 0.9 L Monocytes # (Manual) 2.1 H Eosinophils # (Manual) Basophils # (Manual) PT INR D-Dimer ABG pH POC ABG pCO2 POC ABG pO2 ABG pO2 ABG HCO3 ABG O2 Saturation ABG Base Excess ABG Hemoglobin ABG Oxyhemoglobin ABG Potassium ABG Glucose Oxyhemoglobin Carboxyhemoglobin Sodium 147 H Potassium Chloride Carbon Dioxide 37 H BUN 63 H Creatinine Glucose 154 H POC Glucose 128 H Calcium Ferritin Total Bilirubin Alkaline Phosphatase Lactate Dehydrogenase Total Creatine Kinase CK-MB (CK-2) Rel Index Troponin T C-Reactive Protein Total Protein Albumin Prealbumin LDL Cholesterol Direct HDL Cholesterol Arterial Blood Glucose Arterial Blood Ionized Calcium Urine WBC (Auto) 03/09/20 03/10/20 03/10/20 17:51 00:25 05:41 WBC RBC Hgb Hct MCV MCH RDW Plt Count Lymph % (Auto) [place] % (Auto) Eos % (Auto) Lymph # (Auto) [place] # (Auto) Eos # (Auto) Seg Neutrophils % Seg Neuts % (Manual) Lymphocytes % (Manual) Monocytes % (Manual) Basophils % (Manual) Seg Neutrophils # Seg Neutrophils # Man Lymphocytes # (Manual) Monocytes # (Manual) Eosinophils # (Manual) Basophils # (Manual) PT INR D-Dimer ABG pH POC ABG pCO2 POC ABG pO2 ABG pO2 ABG HCO3 ABG O2 Saturation ABG Base Excess ABG Hemoglobin ABG Oxyhemoglobin ABG Potassium ABG Glucose Oxyhemoglobin Carboxyhemoglobin Sodium Potassium Chloride Carbon Dioxide BUN Creatinine Glucose POC Glucose 127 H 128 H 153 H Calcium Ferritin Total Bilirubin Alkaline Phosphatase Lactate Dehydrogenase Total Creatine Kinase CK-MB (CK-2) Rel Index Troponin T C-Reactive Protein Total Protein Albumin Prealbumin LDL Cholesterol Direct HDL Cholesterol Arterial Blood Glucose Arterial Blood Ionized Calcium Urine WBC (Auto) 03/10/20 03/10/20 03/10/20 06:14 06:14 12:02 WBC 18.3 H RBC 3.45 L Hgb 9.5 L Hct 29.5 L MCV MCH RDW 16.1 H Plt Count 494 H Lymph % (Auto) [place] % (Auto) Eos % (Auto) Lymph # (Auto) [place] # (Auto) Eos # (Auto) Seg Neutrophils % Seg Neuts % (Manual) 95.0 H Lymphocytes % (Manual) 1.0 L Monocytes % (Manual) Basophils % (Manual) Seg Neutrophils # Seg Neutrophils # Man 17.4 H Lymphocytes # (Manual) 0.2 L Monocytes # (Manual) Eosinophils # (Manual) Basophils # (Manual) PT INR D-Dimer ABG pH POC ABG pCO2 POC ABG pO2 ABG pO2 ABG HCO3 ABG O2 Saturation ABG Base Excess ABG Hemoglobin ABG Oxyhemoglobin ABG Potassium ABG Glucose Oxyhemoglobin Carboxyhemoglobin Sodium 149 H Potassium Chloride Carbon Dioxide 35 H BUN 34 H Creatinine 0.2 L D Glucose 177 H POC Glucose 151 H Calcium Ferritin Total Bilirubin Alkaline Phosphatase Lactate Dehydrogenase Total Creatine Kinase CK-MB (CK-2) Rel Index Troponin T C-Reactive Protein Total Protein Albumin Prealbumin LDL Cholesterol Direct HDL Cholesterol Arterial Blood Glucose Arterial Blood Ionized Calcium Urine WBC (Auto) 03/10/20 03/10/20 03/11/20 17:41 23:53 05:02 WBC RBC Hgb Hct MCV MCH RDW Plt Count Lymph % (Auto) [place] % (Auto) Eos % (Auto) Lymph # (Auto) [place] # (Auto) Eos # (Auto) Seg Neutrophils % Seg Neuts % (Manual) Lymphocytes % (Manual) Monocytes % (Manual) Basophils % (Manual) Seg Neutrophils # Seg Neutrophils # Man Lymphocytes # (Manual) Monocytes # (Manual) Eosinophils # (Manual) Basophils # (Manual) PT INR D-Dimer ABG pH POC ABG pCO2 POC ABG pO2 ABG pO2 ABG HCO3 ABG O2 Saturation ABG Base Excess ABG Hemoglobin ABG Oxyhemoglobin ABG Potassium ABG Glucose Oxyhemoglobin Carboxyhemoglobin Sodium Potassium Chloride Carbon Dioxide BUN Creatinine Glucose POC Glucose 168 H 142 H 146 H Calcium Ferritin Total Bilirubin Alkaline Phosphatase Lactate Dehydrogenase Total Creatine Kinase CK-MB (CK-2) Rel Index Troponin T C-Reactive Protein Total Protein Albumin Prealbumin LDL Cholesterol Direct HDL Cholesterol Arterial Blood Glucose Arterial Blood Ionized Calcium Urine WBC (Auto) 03/11/20 03/11/20 03/11/20 11:30 14:01 14:01 WBC 19.7 H RBC 3.04 L Hgb 8.7 L Hct 25.8 L MCV MCH RDW 15.6 H Plt Count Lymph % (Auto) [place] % (Auto) Eos % (Auto) Lymph # (Auto) [place] # (Auto) Eos # (Auto) Seg Neutrophils % Seg Neuts % (Manual) Lymphocytes % (Manual) Monocytes % (Manual) Basophils % (Manual) Seg Neutrophils # Seg Neutrophils # Man Lymphocytes # (Manual) Monocytes # (Manual) Eosinophils # (Manual) Basophils # (Manual) PT INR D-Dimer ABG pH POC ABG pCO2 POC ABG pO2 ABG pO2 ABG HCO3 ABG O2 Saturation ABG Base Excess ABG Hemoglobin ABG Oxyhemoglobin ABG Potassium ABG Glucose Oxyhemoglobin Carboxyhemoglobin Sodium 151 H Potassium Chloride Carbon Dioxide 37 H BUN Creatinine < 0.2 L Glucose 171 H POC Glucose 248 H Calcium Ferritin Total Bilirubin Alkaline Phosphatase Lactate Dehydrogenase Total Creatine Kinase CK-MB (CK-2) Rel Index Troponin T C-Reactive Protein Total Protein Albumin Prealbumin LDL Cholesterol Direct HDL Cholesterol Arterial Blood Glucose Arterial Blood Ionized Calcium Urine WBC (Auto) 03/11/20 03/11/20 03/12/20 17:09 23:52 04:39 WBC 19.9 H RBC 3.16 L Hgb 8.9 L Hct 27.5 L MCV MCH RDW 15.7 H Plt Count Lymph % (Auto) 6.8 L [place] % (Auto) Eos % (Auto) Lymph # (Auto) [place] # (Auto) 1.2 H Eos # (Auto) Seg Neutrophils % 86.0 H Seg Neuts % (Manual) Lymphocytes % (Manual) Monocytes % (Manual) Basophils % (Manual) Seg Neutrophils # 17.1 H Seg Neutrophils # Man Lymphocytes # (Manual) Monocytes # (Manual) Eosinophils # (Manual) Basophils # (Manual) PT INR D-Dimer ABG pH POC ABG pCO2 POC ABG pO2 ABG pO2 ABG HCO3 ABG O2 Saturation ABG Base Excess ABG Hemoglobin ABG Oxyhemoglobin ABG Potassium ABG Glucose Oxyhemoglobin Carboxyhemoglobin Sodium Potassium Chloride Carbon Dioxide BUN Creatinine Glucose POC Glucose 124 H 131 H Calcium Ferritin Total Bilirubin Alkaline Phosphatase Lactate Dehydrogenase Total Creatine Kinase CK-MB (CK-2) Rel Index Troponin T C-Reactive Protein Total Protein Albumin Prealbumin LDL Cholesterol Direct HDL Cholesterol Arterial Blood Glucose Arterial Blood Ionized Calcium Urine WBC (Auto) 03/12/20 03/12/20 03/12/20 04:39 05:28 11:34 WBC RBC Hgb Hct MCV MCH RDW Plt Count Lymph % (Auto) [place] % (Auto) Eos % (Auto) Lymph # (Auto) [place] # (Auto) Eos # (Auto) Seg Neutrophils % Seg Neuts % (Manual) Lymphocytes % (Manual) Monocytes % (Manual) Basophils % (Manual) Seg Neutrophils # Seg Neutrophils # Man Lymphocytes # (Manual) Monocytes # (Manual) Eosinophils # (Manual) Basophils # (Manual) PT INR D-Dimer ABG pH POC ABG pCO2 POC ABG pO2 ABG pO2 ABG HCO3 ABG O2 Saturation ABG Base Excess ABG Hemoglobin ABG Oxyhemoglobin ABG Potassium ABG Glucose Oxyhemoglobin Carboxyhemoglobin Sodium 147 H Potassium Chloride Carbon Dioxide 40 H BUN Creatinine < 0.2 L Glucose 175 H POC Glucose 167 H 144 H Calcium Ferritin Total Bilirubin Alkaline Phosphatase Lactate Dehydrogenase Total Creatine Kinase CK-MB (CK-2) Rel Index Troponin T C-Reactive Protein Total Protein Albumin Prealbumin LDL Cholesterol Direct HDL Cholesterol Arterial Blood Glucose Arterial Blood Ionized Calcium Urine WBC (Auto) 03/12/20 03/12/20 03/13/20 17:32 23:57 05:57 WBC RBC Hgb Hct MCV MCH RDW Plt Count Lymph % (Auto) [place] % (Auto) Eos % (Auto) Lymph # (Auto) [place] # (Auto) Eos # (Auto) Seg Neutrophils % Seg Neuts % (Manual) Lymphocytes % (Manual) Monocytes % (Manual) Basophils % (Manual) Seg Neutrophils # Seg Neutrophils # Man Lymphocytes # (Manual) Monocytes # (Manual) Eosinophils # (Manual) Basophils # (Manual) PT INR D-Dimer ABG pH POC ABG pCO2 POC ABG pO2 ABG pO2 ABG HCO3 ABG O2 Saturation ABG Base Excess ABG Hemoglobin ABG Oxyhemoglobin ABG Potassium ABG Glucose Oxyhemoglobin Carboxyhemoglobin Sodium Potassium Chloride Carbon Dioxide BUN Creatinine Glucose POC Glucose 141 H 137 H 161 H Calcium Ferritin Total Bilirubin Alkaline Phosphatase Lactate Dehydrogenase Total Creatine Kinase CK-MB (CK-2) Rel Index Troponin T C-Reactive Protein Total Protein Albumin Prealbumin LDL Cholesterol Direct HDL Cholesterol Arterial Blood Glucose Arterial Blood Ionized Calcium Urine WBC (Auto) 03/13/20 03/13/20 03/13/20 12:28 14:14 18:39 WBC RBC Hgb Hct MCV MCH RDW Plt Count Lymph % (Auto) [place] % (Auto) Eos % (Auto) Lymph # (Auto) [place] # (Auto) Eos # (Auto) Seg Neutrophils % Seg Neuts % (Manual) Lymphocytes % (Manual) Monocytes % (Manual) Basophils % (Manual) Seg Neutrophils # Seg Neutrophils # Man Lymphocytes # (Manual) Monocytes # (Manual) Eosinophils # (Manual) Basophils # (Manual) PT INR D-Dimer ABG pH POC ABG pCO2 POC ABG pO2 ABG pO2 ABG HCO3 ABG O2 Saturation ABG Base Excess ABG Hemoglobin ABG Oxyhemoglobin ABG Potassium ABG Glucose Oxyhemoglobin Carboxyhemoglobin Sodium Potassium Chloride Carbon Dioxide 39 H BUN Creatinine < 0.2 L Glucose 129 H POC Glucose 130 H 125 H Calcium Ferritin Total Bilirubin Alkaline Phosphatase Lactate Dehydrogenase Total Creatine Kinase CK-MB (CK-2) Rel Index Troponin T C-Reactive Protein Total Protein Albumin Prealbumin LDL Cholesterol Direct HDL Cholesterol Arterial Blood Glucose Arterial Blood Ionized Calcium Urine WBC (Auto) 03/13/20 03/14/20 03/14/20 23:33 05:24 08:07 WBC 16.8 H RBC 2.81 L Hgb 7.9 L Hct 23.9 L MCV MCH RDW 15.9 H Plt Count Lymph % (Auto) [place] % (Auto) Eos % (Auto) Lymph # (Auto) [place] # (Auto) Eos # (Auto) Seg Neutrophils % Seg Neuts % (Manual) 84.0 H Lymphocytes % (Manual) 10.0 L Monocytes % (Manual) Basophils % (Manual) Seg Neutrophils # Seg Neutrophils # Man 14.1 H Lymphocytes # (Manual) Monocytes # (Manual) Eosinophils # (Manual) Basophils # (Manual) PT INR D-Dimer ABG pH POC ABG pCO2 POC ABG pO2 ABG pO2 ABG HCO3 ABG O2 Saturation ABG Base Excess ABG Hemoglobin ABG Oxyhemoglobin ABG Potassium ABG Glucose Oxyhemoglobin Carboxyhemoglobin Sodium Potassium Chloride Carbon Dioxide BUN Creatinine Glucose POC Glucose 146 H 125 H Calcium Ferritin Total Bilirubin Alkaline Phosphatase Lactate Dehydrogenase Total Creatine Kinase CK-MB (CK-2) Rel Index Troponin T C-Reactive Protein Total Protein Albumin Prealbumin LDL Cholesterol Direct HDL Cholesterol Arterial Blood Glucose Arterial Blood Ionized Calcium Urine WBC (Auto) 03/14/20 03/14/20 03/14/20 08:07 12:21 18:26 WBC RBC Hgb Hct MCV MCH RDW Plt Count Lymph % (Auto) [place] % (Auto) Eos % (Auto) Lymph # (Auto) [place] # (Auto) Eos # (Auto) Seg Neutrophils % Seg Neuts % (Manual) Lymphocytes % (Manual) Monocytes % (Manual) Basophils % (Manual) Seg Neutrophils # Seg Neutrophils # Man Lymphocytes # (Manual) Monocytes # (Manual) Eosinophils # (Manual) Basophils # (Manual) PT INR D-Dimer ABG pH POC ABG pCO2 POC ABG pO2 ABG pO2 ABG HCO3 ABG O2 Saturation ABG Base Excess ABG Hemoglobin ABG Oxyhemoglobin ABG Potassium ABG Glucose Oxyhemoglobin Carboxyhemoglobin Sodium Potassium Chloride 97.0 L Carbon Dioxide 37 H BUN Creatinine < 0.2 L Glucose 129 H POC Glucose 109 H 142 H Calcium 8.3 L Ferritin Total Bilirubin Alkaline Phosphatase Lactate Dehydrogenase Total Creatine Kinase CK-MB (CK-2) Rel Index Troponin T C-Reactive Protein Total Protein Albumin Prealbumin LDL Cholesterol Direct HDL Cholesterol Arterial Blood Glucose Arterial Blood Ionized Calcium Urine WBC (Auto) 03/14/20 03/15/20 03/15/20 23:57 05:46 08:06 WBC 19.7 H RBC 3.29 L Hgb 9.1 L Hct 28.0 L MCV MCH RDW 15.9 H Plt Count Lymph % (Auto) [place] % (Auto) Eos % (Auto) Lymph # (Auto) [place] # (Auto) Eos # (Auto) Seg Neutrophils % Seg Neuts % (Manual) Lymphocytes % (Manual) Monocytes % (Manual) Basophils % (Manual) Seg Neutrophils # Seg Neutrophils # Man Lymphocytes # (Manual) Monocytes # (Manual) Eosinophils # (Manual) Basophils # (Manual) PT INR D-Dimer ABG pH POC ABG pCO2 POC ABG pO2 ABG pO2 ABG HCO3 ABG O2 Saturation ABG Base Excess ABG Hemoglobin ABG Oxyhemoglobin ABG Potassium ABG Glucose Oxyhemoglobin Carboxyhemoglobin Sodium Potassium Chloride Carbon Dioxide BUN Creatinine Glucose POC Glucose 157 H 118 H Calcium Ferritin Total Bilirubin Alkaline Phosphatase Lactate Dehydrogenase Total Creatine Kinase CK-MB (CK-2) Rel Index Troponin T C-Reactive Protein Total Protein Albumin Prealbumin LDL Cholesterol Direct HDL Cholesterol Arterial Blood Glucose Arterial Blood Ionized Calcium Urine WBC (Auto) 03/15/20 03/15/20 03/15/20 08:06 12:44 18:09 WBC RBC Hgb Hct MCV MCH RDW Plt Count Lymph % (Auto) [place] % (Auto) Eos % (Auto) Lymph # (Auto) [place] # (Auto) Eos # (Auto) Seg Neutrophils % Seg Neuts % (Manual) Lymphocytes % (Manual) Monocytes % (Manual) Basophils % (Manual) Seg Neutrophils # Seg Neutrophils # Man Lymphocytes # (Manual) Monocytes # (Manual) Eosinophils # (Manual) Basophils # (Manual) PT INR D-Dimer ABG pH POC ABG pCO2 POC ABG pO2 ABG pO2 ABG HCO3 ABG O2 Saturation ABG Base Excess ABG Hemoglobin ABG Oxyhemoglobin ABG Potassium ABG Glucose Oxyhemoglobin Carboxyhemoglobin Sodium 136 L Potassium Chloride 93.6 L Carbon Dioxide 37 H BUN Creatinine < 0.2 L Glucose 132 H POC Glucose 151 H 164 H Calcium Ferritin Total Bilirubin Alkaline Phosphatase Lactate Dehydrogenase Total Creatine Kinase CK-MB (CK-2) Rel Index Troponin T C-Reactive Protein Total Protein Albumin Prealbumin LDL Cholesterol Direct HDL Cholesterol Arterial Blood Glucose Arterial Blood Ionized Calcium Urine WBC (Auto) 03/15/20 03/16/20 03/16/20 23:26 05:39 11:58 WBC RBC Hgb Hct MCV MCH RDW Plt Count Lymph % (Auto) [place] % (Auto) Eos % (Auto) Lymph # (Auto) [place] # (Auto) Eos # (Auto) Seg Neutrophils % Seg Neuts % (Manual) Lymphocytes % (Manual) Monocytes % (Manual) Basophils % (Manual) Seg Neutrophils # Seg Neutrophils # Man Lymphocytes # (Manual) Monocytes # (Manual) Eosinophils # (Manual) Basophils # (Manual) PT INR D-Dimer ABG pH POC ABG pCO2 POC ABG pO2 ABG pO2 ABG HCO3 ABG O2 Saturation ABG Base Excess ABG Hemoglobin ABG Oxyhemoglobin ABG Potassium ABG Glucose Oxyhemoglobin Carboxyhemoglobin Sodium Potassium Chloride Carbon Dioxide BUN Creatinine Glucose POC Glucose 136 H 116 H 109 H Calcium Ferritin Total Bilirubin Alkaline Phosphatase Lactate Dehydrogenase Total Creatine Kinase CK-MB (CK-2) Rel Index Troponin T C-Reactive Protein Total Protein Albumin Prealbumin LDL Cholesterol Direct HDL Cholesterol Arterial Blood Glucose Arterial Blood Ionized Calcium Urine WBC (Auto) 03/16/20 03/17/20 03/17/20 23:56 04:40 04:40 WBC 18.0 H RBC 3.33 L Hgb 9.5 L Hct 28.8 L MCV MCH RDW 16.4 H Plt Count 499 H Lymph % (Auto) [place] % (Auto) Eos % (Auto) Lymph # (Auto) [place] # (Auto) Eos # (Auto) Seg Neutrophils % Seg Neuts % (Manual) 82.0 H Lymphocytes % (Manual) 8.0 L Monocytes % (Manual) Basophils % (Manual) Seg Neutrophils # Seg Neutrophils # Man 14.8 H Lymphocytes # (Manual) Monocytes # (Manual) 1.3 H Eosinophils # (Manual) Basophils # (Manual) 0.2 H PT INR D-Dimer ABG pH POC ABG pCO2 POC ABG pO2 ABG pO2 ABG HCO3 ABG O2 Saturation ABG Base Excess ABG Hemoglobin ABG Oxyhemoglobin ABG Potassium ABG Glucose Oxyhemoglobin Carboxyhemoglobin Sodium Potassium Chloride 97.7 L Carbon Dioxide 32 H BUN Creatinine < 0.2 L Glucose 114 H POC Glucose 131 H Calcium Ferritin Total Bilirubin Alkaline Phosphatase Lactate Dehydrogenase Total Creatine Kinase CK-MB (CK-2) Rel Index Troponin T C-Reactive Protein Total Protein Albumin Prealbumin LDL Cholesterol Direct HDL Cholesterol Arterial Blood Glucose Arterial Blood Ionized Calcium Urine WBC (Auto) 03/18/20 03/18/20 03/18/20 00:21 05:21 11:55 WBC RBC Hgb Hct MCV MCH RDW Plt Count Lymph % (Auto) [place] % (Auto) Eos % (Auto) Lymph # (Auto) [place] # (Auto) Eos # (Auto) Seg Neutrophils % Seg Neuts % (Manual) Lymphocytes % (Manual) Monocytes % (Manual) Basophils % (Manual) Seg Neutrophils # Seg Neutrophils # Man Lymphocytes # (Manual) Monocytes # (Manual) Eosinophils # (Manual) Basophils # (Manual) PT INR D-Dimer ABG pH POC ABG pCO2 POC ABG pO2 ABG pO2 ABG HCO3 ABG O2 Saturation ABG Base Excess ABG Hemoglobin ABG Oxyhemoglobin ABG Potassium ABG Glucose Oxyhemoglobin Carboxyhemoglobin Sodium Potassium Chloride Carbon Dioxide BUN Creatinine Glucose POC Glucose 124 H 138 H 119 H Calcium Ferritin Total Bilirubin Alkaline Phosphatase Lactate Dehydrogenase Total Creatine Kinase CK-MB (CK-2) Rel Index Troponin T C-Reactive Protein Total Protein Albumin Prealbumin LDL Cholesterol Direct HDL Cholesterol Arterial Blood Glucose Arterial Blood Ionized Calcium Urine WBC (Auto) 03/18/20 03/18/20 03/19/20 17:03 23:58 05:24 WBC RBC Hgb Hct MCV MCH RDW Plt Count Lymph % (Auto) [place] % (Auto) Eos % (Auto) Lymph # (Auto) [place] # (Auto) Eos # (Auto) Seg Neutrophils % Seg Neuts % (Manual) Lymphocytes % (Manual) Monocytes % (Manual) Basophils % (Manual) Seg Neutrophils # Seg Neutrophils # Man Lymphocytes # (Manual) Monocytes # (Manual) Eosinophils # (Manual) Basophils # (Manual) PT INR D-Dimer ABG pH POC ABG pCO2 POC ABG pO2 ABG pO2 ABG HCO3 ABG O2 Saturation ABG Base Excess ABG Hemoglobin ABG Oxyhemoglobin ABG Potassium ABG Glucose Oxyhemoglobin Carboxyhemoglobin Sodium Potassium Chloride Carbon Dioxide BUN Creatinine Glucose POC Glucose 128 H 128 H 115 H Calcium Ferritin Total Bilirubin Alkaline Phosphatase Lactate Dehydrogenase Total Creatine Kinase CK-MB (CK-2) Rel Index Troponin T C-Reactive Protein Total Protein Albumin Prealbumin LDL Cholesterol Direct HDL Cholesterol Arterial Blood Glucose Arterial Blood Ionized Calcium Urine WBC (Auto) 03/19/20 03/19/20 03/19/20 08:05 08:05 11:56 WBC 16.8 H RBC 3.36 L Hgb 9.4 L Hct 28.8 L MCV MCH RDW 17.4 H Plt Count 567 H Lymph % (Auto) 7.8 L [place] % (Auto) Eos % (Auto) Lymph # (Auto) [place] # (Auto) 1.2 H Eos # (Auto) Seg Neutrophils % 83.5 H Seg Neuts % (Manual) Lymphocytes % (Manual) Monocytes % (Manual) Basophils % (Manual) Seg Neutrophils # 14.1 H Seg Neutrophils # Man Lymphocytes # (Manual) Monocytes # (Manual) Eosinophils # (Manual) Basophils # (Manual) PT INR D-Dimer ABG pH POC ABG pCO2 POC ABG pO2 ABG pO2 ABG HCO3 ABG O2 Saturation ABG Base Excess ABG Hemoglobin ABG Oxyhemoglobin ABG Potassium ABG Glucose Oxyhemoglobin Carboxyhemoglobin Sodium Potassium Chloride Carbon Dioxide 36 H BUN Creatinine < 0.2 L Glucose 135 H POC Glucose 128 H Calcium Ferritin Total Bilirubin Alkaline Phosphatase Lactate Dehydrogenase Total Creatine Kinase CK-MB (CK-2) Rel Index Troponin T C-Reactive Protein Total Protein Albumin Prealbumin LDL Cholesterol Direct HDL Cholesterol Arterial Blood Glucose Arterial Blood Ionized Calcium Urine WBC (Auto) 03/19/20 03/20/20 03/20/20 23:59 05:12 16:52 WBC RBC Hgb Hct MCV MCH RDW Plt Count Lymph % (Auto) [place] % (Auto) Eos % (Auto) Lymph # (Auto) [place] # (Auto) Eos # (Auto) Seg Neutrophils % Seg Neuts % (Manual) Lymphocytes % (Manual) Monocytes % (Manual) Basophils % (Manual) Seg Neutrophils # Seg Neutrophils # Man Lymphocytes # (Manual) Monocytes # (Manual) Eosinophils # (Manual) Basophils # (Manual) PT INR D-Dimer ABG pH POC ABG pCO2 POC ABG pO2 ABG pO2 ABG HCO3 ABG O2 Saturation ABG Base Excess ABG Hemoglobin ABG Oxyhemoglobin ABG Potassium ABG Glucose Oxyhemoglobin Carboxyhemoglobin Sodium Potassium Chloride Carbon Dioxide BUN Creatinine Glucose POC Glucose 120 H 131 H 124 H Calcium Ferritin Total Bilirubin Alkaline Phosphatase Lactate Dehydrogenase Total Creatine Kinase CK-MB (CK-2) Rel Index Troponin T C-Reactive Protein Total Protein Albumin Prealbumin LDL Cholesterol Direct HDL Cholesterol Arterial Blood Glucose Arterial Blood Ionized Calcium Urine WBC (Auto) 03/20/20 03/21/20 03/21/20 23:35 04:50 07:35 WBC 15.2 H RBC 3.39 L Hgb 9.4 L Hct 29.4 L MCV MCH RDW 17.6 H Plt Count 518 H Lymph % (Auto) [place] % (Auto) Eos % (Auto) Lymph # (Auto) [place] # (Auto) Eos # (Auto) Seg Neutrophils % Seg Neuts % (Manual) 83.0 H Lymphocytes % (Manual) 10.0 L Monocytes % (Manual) Basophils % (Manual) 2.0 H Seg Neutrophils # Seg Neutrophils # Man 12.6 H Lymphocytes # (Manual) Monocytes # (Manual) Eosinophils # (Manual) Basophils # (Manual) 0.3 H PT INR D-Dimer ABG pH POC ABG pCO2 POC ABG pO2 ABG pO2 ABG HCO3 ABG O2 Saturation ABG Base Excess ABG Hemoglobin ABG Oxyhemoglobin ABG Potassium ABG Glucose Oxyhemoglobin Carboxyhemoglobin Sodium Potassium Chloride Carbon Dioxide BUN Creatinine Glucose POC Glucose 125 H 127 H Calcium Ferritin Total Bilirubin Alkaline Phosphatase Lactate Dehydrogenase Total Creatine Kinase CK-MB (CK-2) Rel Index Troponin T C-Reactive Protein Total Protein Albumin Prealbumin LDL Cholesterol Direct HDL Cholesterol Arterial Blood Glucose Arterial Blood Ionized Calcium Urine WBC (Auto) 03/21/20 03/21/20 03/21/20 07:35 11:45 17:22 WBC RBC Hgb Hct MCV MCH RDW Plt Count Lymph % (Auto) [place] % (Auto) Eos % (Auto) Lymph # (Auto) [place] # (Auto) Eos # (Auto) Seg Neutrophils % Seg Neuts % (Manual) Lymphocytes % (Manual) Monocytes % (Manual) Basophils % (Manual) Seg Neutrophils # Seg Neutrophils # Man Lymphocytes # (Manual) Monocytes # (Manual) Eosinophils # (Manual) Basophils # (Manual) PT INR D-Dimer ABG pH POC ABG pCO2 POC ABG pO2 ABG pO2 ABG HCO3 ABG O2 Saturation ABG Base Excess ABG Hemoglobin ABG Oxyhemoglobin ABG Potassium ABG Glucose Oxyhemoglobin Carboxyhemoglobin Sodium 136 L Potassium Chloride 97.7 L Carbon Dioxide 32 H BUN Creatinine < 0.2 L Glucose 103 H POC Glucose 126 H 120 H Calcium Ferritin Total Bilirubin Alkaline Phosphatase Lactate Dehydrogenase Total Creatine Kinase CK-MB (CK-2) Rel Index Troponin T C-Reactive Protein Total Protein Albumin Prealbumin LDL Cholesterol Direct HDL Cholesterol Arterial Blood Glucose Arterial Blood Ionized Calcium Urine WBC (Auto) 03/22/20 03/22/20 03/22/20 05:09 06:34 06:34 WBC 17.5 H RBC 3.52 L Hgb 10.0 L Hct 30.7 L MCV MCH RDW 17.5 H Plt Count 499 H Lymph % (Auto) [place] % (Auto) Eos % (Auto) Lymph # (Auto) [place] # (Auto) Eos # (Auto) Seg Neutrophils % Seg Neuts % (Manual) 80.0 H Lymphocytes % (Manual) 10.0 L Monocytes % (Manual) Basophils % (Manual) Seg Neutrophils # Seg Neutrophils # Man 14.0 H Lymphocytes # (Manual) Monocytes # (Manual) Eosinophils # (Manual) Basophils # (Manual) PT INR D-Dimer ABG pH POC ABG pCO2 POC ABG pO2 ABG pO2 ABG HCO3 ABG O2 Saturation ABG Base Excess ABG Hemoglobin ABG Oxyhemoglobin ABG Potassium ABG Glucose Oxyhemoglobin Carboxyhemoglobin Sodium Potassium Chloride 96.6 L Carbon Dioxide 38 H BUN Creatinine < 0.2 L Glucose 139 H POC Glucose 125 H Calcium Ferritin Total Bilirubin Alkaline Phosphatase Lactate Dehydrogenase Total Creatine Kinase CK-MB (CK-2) Rel Index Troponin T C-Reactive Protein Total Protein Albumin Prealbumin LDL Cholesterol Direct HDL Cholesterol Arterial Blood Glucose Arterial Blood Ionized Calcium Urine WBC (Auto) 03/22/20 03/22/20 03/22/20 11:45 18:00 23:32 WBC RBC Hgb Hct MCV MCH RDW Plt Count Lymph % (Auto) [place] % (Auto) Eos % (Auto) Lymph # (Auto) [place] # (Auto) Eos # (Auto) Seg Neutrophils % Seg Neuts % (Manual) Lymphocytes % (Manual) Monocytes % (Manual) Basophils % (Manual) Seg Neutrophils # Seg Neutrophils # Man Lymphocytes # (Manual) Monocytes # (Manual) Eosinophils # (Manual) Basophils # (Manual) PT INR D-Dimer ABG pH POC ABG pCO2 POC ABG pO2 ABG pO2 ABG HCO3 ABG O2 Saturation ABG Base Excess ABG Hemoglobin ABG Oxyhemoglobin ABG Potassium ABG Glucose Oxyhemoglobin Carboxyhemoglobin Sodium Potassium Chloride Carbon Dioxide BUN Creatinine Glucose POC Glucose 135 H 133 H Calcium Ferritin Total Bilirubin Alkaline Phosphatase Lactate Dehydrogenase Total Creatine Kinase CK-MB (CK-2) Rel Index Troponin T 0.113 H* C-Reactive Protein Total Protein Albumin Prealbumin LDL Cholesterol Direct HDL Cholesterol Arterial Blood Glucose Arterial Blood Ionized Calcium Urine WBC (Auto) 03/23/20 03/23/20 03/23/20 01:47 06:21 07:57 WBC RBC Hgb Hct MCV MCH RDW Plt Count Lymph % (Auto) [place] % (Auto) Eos % (Auto) Lymph # (Auto) [place] # (Auto) Eos # (Auto) Seg Neutrophils % Seg Neuts % (Manual) Lymphocytes % (Manual) Monocytes % (Manual) Basophils % (Manual) Seg Neutrophils # Seg Neutrophils # Man Lymphocytes # (Manual) Monocytes # (Manual) Eosinophils # (Manual) Basophils # (Manual) PT INR D-Dimer ABG pH POC ABG pCO2 POC ABG pO2 ABG pO2 ABG HCO3 ABG O2 Saturation ABG Base Excess ABG Hemoglobin ABG Oxyhemoglobin ABG Potassium ABG Glucose Oxyhemoglobin Carboxyhemoglobin Sodium Potassium Chloride Carbon Dioxide BUN Creatinine Glucose POC Glucose 130 H Calcium Ferritin Total Bilirubin Alkaline Phosphatase Lactate Dehydrogenase Total Creatine Kinase CK-MB (CK-2) Rel Index Troponin T 0.143 H* D 0.105 H* D C-Reactive Protein Total Protein Albumin Prealbumin LDL Cholesterol Direct HDL Cholesterol Arterial Blood Glucose Arterial Blood Ionized Calcium Urine WBC (Auto) 03/23/20 03/24/20 03/24/20 12:02 05:33 07:15 WBC 18.0 H RBC Hgb 11.0 L Hct 34.0 L MCV MCH RDW 17.4 H Plt Count 520 H Lymph % (Auto) [place] % (Auto) Eos % (Auto) Lymph # (Auto) [place] # (Auto) Eos # (Auto) Seg Neutrophils % Seg Neuts % (Manual) 88.0 H Lymphocytes % (Manual) 7.0 L Monocytes % (Manual) Basophils % (Manual) Seg Neutrophils # Seg Neutrophils # Man 15.8 H Lymphocytes # (Manual) Monocytes # (Manual) Eosinophils # (Manual) Basophils # (Manual) PT INR D-Dimer ABG pH POC ABG pCO2 POC ABG pO2 ABG pO2 ABG HCO3 ABG O2 Saturation ABG Base Excess ABG Hemoglobin ABG Oxyhemoglobin ABG Potassium ABG Glucose Oxyhemoglobin Carboxyhemoglobin Sodium Potassium Chloride Carbon Dioxide BUN Creatinine Glucose POC Glucose 137 H 112 H Calcium Ferritin Total Bilirubin Alkaline Phosphatase Lactate Dehydrogenase Total Creatine Kinase CK-MB (CK-2) Rel Index Troponin T C-Reactive Protein Total Protein Albumin Prealbumin LDL Cholesterol Direct HDL Cholesterol Arterial Blood Glucose Arterial Blood Ionized Calcium Urine WBC (Auto) 03/24/20 03/24/20 03/24/20 07:15 11:22 23:30 WBC RBC Hgb Hct MCV MCH RDW Plt Count Lymph % (Auto) [place] % (Auto) Eos % (Auto) Lymph # (Auto) [place] # (Auto) Eos # (Auto) Seg Neutrophils % Seg Neuts % (Manual) Lymphocytes % (Manual) Monocytes % (Manual) Basophils % (Manual) Seg Neutrophils # Seg Neutrophils # Man Lymphocytes # (Manual) Monocytes # (Manual) Eosinophils # (Manual) Basophils # (Manual) PT INR D-Dimer ABG pH POC ABG pCO2 POC ABG pO2 ABG pO2 ABG HCO3 ABG O2 Saturation ABG Base Excess ABG Hemoglobin ABG Oxyhemoglobin ABG Potassium ABG Glucose Oxyhemoglobin Carboxyhemoglobin Sodium Potassium Chloride 96.6 L Carbon Dioxide 38 H BUN Creatinine < 0.2 L Glucose 141 H POC Glucose 130 H 120 H Calcium Ferritin Total Bilirubin Alkaline Phosphatase Lactate Dehydrogenase Total Creatine Kinase CK-MB (CK-2) Rel Index Troponin T C-Reactive Protein Total Protein Albumin Prealbumin LDL Cholesterol Direct HDL Cholesterol Arterial Blood Glucose Arterial Blood Ionized Calcium Urine WBC (Auto) 03/25/20 03/25/20 03/25/20 05:48 17:53 23:18 WBC RBC Hgb Hct MCV MCH RDW Plt Count Lymph % (Auto) [place] % (Auto) Eos % (Auto) Lymph # (Auto) [place] # (Auto) Eos # (Auto) Seg Neutrophils % Seg Neuts % (Manual) Lymphocytes % (Manual) Monocytes % (Manual) Basophils % (Manual) Seg Neutrophils # Seg Neutrophils # Man Lymphocytes # (Manual) Monocytes # (Manual) Eosinophils # (Manual) Basophils # (Manual) PT INR D-Dimer ABG pH POC ABG pCO2 POC ABG pO2 ABG pO2 ABG HCO3 ABG O2 Saturation ABG Base Excess ABG Hemoglobin ABG Oxyhemoglobin ABG Potassium ABG Glucose Oxyhemoglobin Carboxyhemoglobin Sodium Potassium Chloride Carbon Dioxide BUN Creatinine Glucose POC Glucose 124 H 109 H 131 H Calcium Ferritin Total Bilirubin Alkaline Phosphatase Lactate Dehydrogenase Total Creatine Kinase CK-MB (CK-2) Rel Index Troponin T C-Reactive Protein Total Protein Albumin Prealbumin LDL Cholesterol Direct HDL Cholesterol Arterial Blood Glucose Arterial Blood Ionized Calcium Urine WBC (Auto) 03/26/20 03/26/20 03/26/20 05:21 08:49 08:49 WBC 19.7 H RBC Hgb 10.7 L Hct 33.5 L MCV MCH 27 L RDW 17.1 H Plt Count 480 H Lymph % (Auto) 5.7 L [place] % (Auto) Eos % (Auto) Lymph # (Auto) 1.1 L [place] # (Auto) 1.2 H Eos # (Auto) Seg Neutrophils % 87.7 H Seg Neuts % (Manual) Lymphocytes % (Manual) Monocytes % (Manual) Basophils % (Manual) Seg Neutrophils # 17.2 H Seg Neutrophils # Man Lymphocytes # (Manual) Monocytes # (Manual) Eosinophils # (Manual) Basophils # (Manual) PT INR D-Dimer ABG pH POC ABG pCO2 POC ABG pO2 ABG pO2 ABG HCO3 ABG O2 Saturation ABG Base Excess ABG Hemoglobin ABG Oxyhemoglobin ABG Potassium ABG Glucose Oxyhemoglobin Carboxyhemoglobin Sodium Potassium Chloride 97.2 L Carbon Dioxide 36 H BUN Creatinine < 0.2 L Glucose 127 H POC Glucose 116 H Calcium Ferritin Total Bilirubin Alkaline Phosphatase Lactate Dehydrogenase Total Creatine Kinase CK-MB (CK-2) Rel Index Troponin T C-Reactive Protein Total Protein Albumin Prealbumin LDL Cholesterol Direct HDL Cholesterol Arterial Blood Glucose Arterial Blood Ionized Calcium Urine WBC (Auto) 03/26/20 03/26/20 03/26/20 11:38 18:44 23:06 WBC RBC Hgb Hct MCV MCH RDW Plt Count Lymph % (Auto) [place] % (Auto) Eos % (Auto) Lymph # (Auto) [place] # (Auto) Eos # (Auto) Seg Neutrophils % Seg Neuts % (Manual) Lymphocytes % (Manual) Monocytes % (Manual) Basophils % (Manual) Seg Neutrophils # Seg Neutrophils # Man Lymphocytes # (Manual) Monocytes # (Manual) Eosinophils # (Manual) Basophils # (Manual) PT INR D-Dimer ABG pH POC ABG pCO2 POC ABG pO2 ABG pO2 ABG HCO3 ABG O2 Saturation ABG Base Excess ABG Hemoglobin ABG Oxyhemoglobin ABG Potassium ABG Glucose Oxyhemoglobin Carboxyhemoglobin Sodium Potassium Chloride Carbon Dioxide BUN Creatinine Glucose POC Glucose 120 H 111 H 134 H Calcium Ferritin Total Bilirubin Alkaline Phosphatase Lactate Dehydrogenase Total Creatine Kinase CK-MB (CK-2) Rel Index Troponin T C-Reactive Protein Total Protein Albumin Prealbumin LDL Cholesterol Direct HDL Cholesterol Arterial Blood Glucose Arterial Blood Ionized Calcium Urine WBC (Auto) 03/27/20 03/27/20 03/27/20 05:41 05:59 05:59 WBC 18.6 H RBC Hgb 10.1 L Hct 31.4 L MCV MCH RDW 17.2 H Plt Count Lymph % (Auto) 8.0 L [place] % (Auto) Eos % (Auto) Lymph # (Auto) [place] # (Auto) 1.2 H Eos # (Auto) Seg Neutrophils % 84.7 H Seg Neuts % (Manual) Lymphocytes % (Manual) Monocytes % (Manual) Basophils % (Manual) Seg Neutrophils # 15.8 H Seg Neutrophils # Man Lymphocytes # (Manual) Monocytes # (Manual) Eosinophils # (Manual) Basophils # (Manual) PT INR D-Dimer ABG pH POC ABG pCO2 POC ABG pO2 ABG pO2 ABG HCO3 ABG O2 Saturation ABG Base Excess ABG Hemoglobin ABG Oxyhemoglobin ABG Potassium ABG Glucose Oxyhemoglobin Carboxyhemoglobin Sodium Potassium Chloride Carbon Dioxide 34 H BUN Creatinine < 0.2 L Glucose 127 H POC Glucose 129 H Calcium Ferritin Total Bilirubin Alkaline Phosphatase Lactate Dehydrogenase Total Creatine Kinase CK-MB (CK-2) Rel Index Troponin T C-Reactive Protein Total Protein Albumin Prealbumin LDL Cholesterol Direct HDL Cholesterol Arterial Blood Glucose Arterial Blood Ionized Calcium Urine WBC (Auto) 03/27/20 03/27/20 03/28/20 17:28 23:22 05:23 WBC RBC Hgb Hct MCV MCH RDW Plt Count Lymph % (Auto) [place] % (Auto) Eos % (Auto) Lymph # (Auto) [place] # (Auto) Eos # (Auto) Seg Neutrophils % Seg Neuts % (Manual) Lymphocytes % (Manual) Monocytes % (Manual) Basophils % (Manual) Seg Neutrophils # Seg Neutrophils # Man Lymphocytes # (Manual) Monocytes # (Manual) Eosinophils # (Manual) Basophils # (Manual) PT INR D-Dimer ABG pH POC ABG pCO2 POC ABG pO2 ABG pO2 ABG HCO3 ABG O2 Saturation ABG Base Excess ABG Hemoglobin ABG Oxyhemoglobin ABG Potassium ABG Glucose Oxyhemoglobin Carboxyhemoglobin Sodium Potassium Chloride Carbon Dioxide BUN Creatinine Glucose POC Glucose 108 H 119 H 129 H Calcium Ferritin Total Bilirubin Alkaline Phosphatase Lactate Dehydrogenase Total Creatine Kinase CK-MB (CK-2) Rel Index Troponin T C-Reactive Protein Total Protein Albumin Prealbumin LDL Cholesterol Direct HDL Cholesterol Arterial Blood Glucose Arterial Blood Ionized Calcium Urine WBC (Auto) 03/28/20 03/28/20 03/28/20 10:28 10:28 11:36 WBC 23.6 H RBC 3.62 L Hgb 10.0 L Hct 30.8 L MCV MCH RDW 16.4 H Plt Count Lymph % (Auto) [place] % (Auto) Eos % (Auto) Lymph # (Auto) [place] # (Auto) Eos # (Auto) Seg Neutrophils % Seg Neuts % (Manual) 89.0 H Lymphocytes % (Manual) 5.0 L Monocytes % (Manual) Basophils % (Manual) Seg Neutrophils # Seg Neutrophils # Man 21.0 H Lymphocytes # (Manual) Monocytes # (Manual) 1.2 H Eosinophils # (Manual) Basophils # (Manual) 0.2 H PT INR D-Dimer ABG pH POC ABG pCO2 POC ABG pO2 ABG pO2 ABG HCO3 ABG O2 Saturation ABG Base Excess ABG Hemoglobin ABG Oxyhemoglobin ABG Potassium ABG Glucose Oxyhemoglobin Carboxyhemoglobin Sodium 134 L Potassium Chloride 94.2 L Carbon Dioxide 35 H BUN Creatinine < 0.2 L Glucose 134 H POC Glucose Calcium Ferritin Total Bilirubin Alkaline Phosphatase Lactate Dehydrogenase Total Creatine Kinase CK-MB (CK-2) Rel Index Troponin T C-Reactive Protein Total Protein Albumin Prealbumin LDL Cholesterol Direct HDL Cholesterol Arterial Blood Glucose Arterial Blood Ionized Calcium Urine WBC (Auto) 39.0 H 03/28/20 03/28/20 03/28/20 11:51 17:08 17:17 WBC RBC Hgb Hct MCV MCH RDW Plt Count Lymph % (Auto) [place] % (Auto) Eos % (Auto) Lymph # (Auto) [place] # (Auto) Eos # (Auto) Seg Neutrophils % Seg Neuts % (Manual) Lymphocytes % (Manual) Monocytes % (Manual) Basophils % (Manual) Seg Neutrophils # Seg Neutrophils # Man Lymphocytes # (Manual) Monocytes # (Manual) Eosinophils # (Manual) Basophils # (Manual) PT INR D-Dimer ABG pH POC ABG pCO2 POC ABG pO2 ABG pO2 ABG HCO3 ABG O2 Saturation ABG Base Excess ABG Hemoglobin ABG Oxyhemoglobin ABG Potassium ABG Glucose Oxyhemoglobin Carboxyhemoglobin Sodium Potassium Chloride Carbon Dioxide BUN Creatinine Glucose POC Glucose 123 H 112 H Calcium Ferritin Total Bilirubin Alkaline Phosphatase Lactate Dehydrogenase Total Creatine Kinase 47 L CK-MB (CK-2) Rel Index 4.6 H Troponin T 0.090 H C-Reactive Protein Total Protein Albumin Prealbumin LDL Cholesterol Direct HDL Cholesterol Arterial Blood Glucose Arterial Blood Ionized Calcium Urine WBC (Auto) 03/28/20 03/29/20 03/29/20 23:22 05:22 10:58 WBC RBC Hgb Hct MCV MCH RDW Plt Count Lymph % (Auto) [place] % (Auto) Eos % (Auto) Lymph # (Auto) [place] # (Auto) Eos # (Auto) Seg Neutrophils % Seg Neuts % (Manual) Lymphocytes % (Manual) Monocytes % (Manual) Basophils % (Manual) Seg Neutrophils # Seg Neutrophils # Man Lymphocytes # (Manual) Monocytes # (Manual) Eosinophils # (Manual) Basophils # (Manual) PT INR D-Dimer ABG pH POC ABG pCO2 POC ABG pO2 ABG pO2 ABG HCO3 ABG O2 Saturation ABG Base Excess ABG Hemoglobin ABG Oxyhemoglobin ABG Potassium ABG Glucose Oxyhemoglobin Carboxyhemoglobin Sodium Potassium Chloride Carbon Dioxide BUN Creatinine Glucose POC Glucose 122 H 116 H 133 H Calcium Ferritin Total Bilirubin Alkaline Phosphatase Lactate Dehydrogenase Total Creatine Kinase CK-MB (CK-2) Rel Index Troponin T C-Reactive Protein Total Protein Albumin Prealbumin LDL Cholesterol Direct HDL Cholesterol Arterial Blood Glucose Arterial Blood Ionized Calcium Urine WBC (Auto) 03/29/20 03/29/20 03/30/20 17:18 23:14 04:57 WBC RBC Hgb Hct MCV MCH RDW Plt Count Lymph % (Auto) [place] % (Auto) Eos % (Auto) Lymph # (Auto) [place] # (Auto) Eos # (Auto) Seg Neutrophils % Seg Neuts % (Manual) Lymphocytes % (Manual) Monocytes % (Manual) Basophils % (Manual) Seg Neutrophils # Seg Neutrophils # Man Lymphocytes # (Manual) Monocytes # (Manual) Eosinophils # (Manual) Basophils # (Manual) PT INR D-Dimer ABG pH POC ABG pCO2 POC ABG pO2 ABG pO2 ABG HCO3 ABG O2 Saturation ABG Base Excess ABG Hemoglobin ABG Oxyhemoglobin ABG Potassium ABG Glucose Oxyhemoglobin Carboxyhemoglobin Sodium Potassium Chloride Carbon Dioxide BUN Creatinine Glucose POC Glucose 111 H 114 H 130 H Calcium Ferritin Total Bilirubin Alkaline Phosphatase Lactate Dehydrogenase Total Creatine Kinase CK-MB (CK-2) Rel Index Troponin T C-Reactive Protein Total Protein Albumin Prealbumin LDL Cholesterol Direct HDL Cholesterol Arterial Blood Glucose Arterial Blood Ionized Calcium Urine WBC (Auto) 03/30/20 03/30/20 03/30/20 11:38 14:47 14:47 WBC 19.9 H RBC Hgb 10.9 L Hct 34.4 L MCV MCH 27 L RDW 16.5 H Plt Count 441 H Lymph % (Auto) 6.4 L [place] % (Auto) Eos % (Auto) Lymph # (Auto) [place] # (Auto) 1.4 H Eos # (Auto) Seg Neutrophils % 86.1 H Seg Neuts % (Manual) Lymphocytes % (Manual) Monocytes % (Manual) Basophils % (Manual) Seg Neutrophils # 17.1 H Seg Neutrophils # Man Lymphocytes # (Manual) Monocytes # (Manual) Eosinophils # (Manual) Basophils # (Manual) PT INR D-Dimer ABG pH POC ABG pCO2 POC ABG pO2 ABG pO2 ABG HCO3 ABG O2 Saturation ABG Base Excess ABG Hemoglobin ABG Oxyhemoglobin ABG Potassium ABG Glucose Oxyhemoglobin Carboxyhemoglobin Sodium 133 L Potassium Chloride 94.6 L Carbon Dioxide 33 H BUN Creatinine < 0.2 L Glucose 194 H POC Glucose 139 H Calcium Ferritin Total Bilirubin Alkaline Phosphatase Lactate Dehydrogenase Total Creatine Kinase CK-MB (CK-2) Rel Index Troponin T C-Reactive Protein Total Protein Albumin 2.8 L Prealbumin LDL Cholesterol Direct HDL Cholesterol Arterial Blood Glucose Arterial Blood Ionized Calcium Urine WBC (Auto) 03/30/20 03/31/20 03/31/20 17:07 05:02 15:21 WBC RBC Hgb Hct MCV MCH RDW Plt Count Lymph % (Auto) [place] % (Auto) Eos % (Auto) Lymph # (Auto) [place] # (Auto) Eos # (Auto) Seg Neutrophils % Seg Neuts % (Manual) Lymphocytes % (Manual) Monocytes % (Manual) Basophils % (Manual) Seg Neutrophils # Seg Neutrophils # Man Lymphocytes # (Manual) Monocytes # (Manual) Eosinophils # (Manual) Basophils # (Manual) PT INR D-Dimer ABG pH POC ABG pCO2 POC ABG pO2 ABG pO2 ABG HCO3 ABG O2 Saturation ABG Base Excess ABG Hemoglobin ABG Oxyhemoglobin ABG Potassium ABG Glucose Oxyhemoglobin Carboxyhemoglobin Sodium Potassium Chloride Carbon Dioxide BUN Creatinine Glucose POC Glucose 163 H 108 H 110 H Calcium Ferritin Total Bilirubin Alkaline Phosphatase Lactate Dehydrogenase Total Creatine Kinase CK-MB (CK-2) Rel Index Troponin T C-Reactive Protein Total Protein Albumin Prealbumin LDL Cholesterol Direct HDL Cholesterol Arterial Blood Glucose Arterial Blood Ionized Calcium Urine WBC (Auto) 03/31/20 03/31/20 04/01/20 17:58 23:19 05:09 WBC RBC Hgb Hct MCV MCH RDW Plt Count Lymph % (Auto) [place] % (Auto) Eos % (Auto) Lymph # (Auto) [place] # (Auto) Eos # (Auto) Seg Neutrophils % Seg Neuts % (Manual) Lymphocytes % (Manual) Monocytes % (Manual) Basophils % (Manual) Seg Neutrophils # Seg Neutrophils # Man Lymphocytes # (Manual) Monocytes # (Manual) Eosinophils # (Manual) Basophils # (Manual) PT INR D-Dimer ABG pH POC ABG pCO2 POC ABG pO2 ABG pO2 ABG HCO3 ABG O2 Saturation ABG Base Excess ABG Hemoglobin ABG Oxyhemoglobin ABG Potassium ABG Glucose Oxyhemoglobin Carboxyhemoglobin Sodium Potassium Chloride Carbon Dioxide BUN Creatinine Glucose POC Glucose 110 H 131 H 124 H Calcium Ferritin Total Bilirubin Alkaline Phosphatase Lactate Dehydrogenase Total Creatine Kinase CK-MB (CK-2) Rel Index Troponin T C-Reactive Protein Total Protein Albumin Prealbumin LDL Cholesterol Direct HDL Cholesterol Arterial Blood Glucose Arterial Blood Ionized Calcium Urine WBC (Auto) 04/01/20 04/01/20 04/01/20 11:50 17:01 23:21 WBC RBC Hgb Hct MCV MCH RDW Plt Count Lymph % (Auto) [place] % (Auto) Eos % (Auto) Lymph # (Auto) [place] # (Auto) Eos # (Auto) Seg Neutrophils % Seg Neuts % (Manual) Lymphocytes % (Manual) Monocytes % (Manual) Basophils % (Manual) Seg Neutrophils # Seg Neutrophils # Man Lymphocytes # (Manual) Monocytes # (Manual) Eosinophils # (Manual) Basophils # (Manual) PT INR D-Dimer ABG pH POC ABG pCO2 POC ABG pO2 ABG pO2 ABG HCO3 ABG O2 Saturation ABG Base Excess ABG Hemoglobin ABG Oxyhemoglobin ABG Potassium ABG Glucose Oxyhemoglobin Carboxyhemoglobin Sodium Potassium Chloride Carbon Dioxide BUN Creatinine Glucose POC Glucose 136 H 115 H 124 H Calcium Ferritin Total Bilirubin Alkaline Phosphatase Lactate Dehydrogenase Total Creatine Kinase CK-MB (CK-2) Rel Index Troponin T C-Reactive Protein Total Protein Albumin Prealbumin LDL Cholesterol Direct HDL Cholesterol Arterial Blood Glucose Arterial Blood Ionized Calcium Urine WBC (Auto) 04/02/20 04/02/20 04/02/20 05:27 11:58 17:58 WBC RBC Hgb Hct MCV MCH RDW Plt Count Lymph % (Auto) [place] % (Auto) Eos % (Auto) Lymph # (Auto) [place] # (Auto) Eos # (Auto) Seg Neutrophils % Seg Neuts % (Manual) Lymphocytes % (Manual) Monocytes % (Manual) Basophils % (Manual) Seg Neutrophils # Seg Neutrophils # Man Lymphocytes # (Manual) Monocytes # (Manual) Eosinophils # (Manual) Basophils # (Manual) PT INR D-Dimer ABG pH POC ABG pCO2 POC ABG pO2 ABG pO2 ABG HCO3 ABG O2 Saturation ABG Base Excess ABG Hemoglobin ABG Oxyhemoglobin ABG Potassium ABG Glucose Oxyhemoglobin Carboxyhemoglobin Sodium Potassium Chloride Carbon Dioxide BUN Creatinine Glucose POC Glucose 117 H 133 H 122 H Calcium Ferritin Total Bilirubin Alkaline Phosphatase Lactate Dehydrogenase Total Creatine Kinase CK-MB (CK-2) Rel Index Troponin T C-Reactive Protein Total Protein Albumin Prealbumin LDL Cholesterol Direct HDL Cholesterol Arterial Blood Glucose Arterial Blood Ionized Calcium Urine WBC (Auto) 04/02/20 04/03/20 04/03/20 23:12 05:11 11:11 WBC RBC Hgb Hct MCV MCH RDW Plt Count Lymph % (Auto) [place] % (Auto) Eos % (Auto) Lymph # (Auto) [place] # (Auto) Eos # (Auto) Seg Neutrophils % Seg Neuts % (Manual) Lymphocytes % (Manual) Monocytes % (Manual) Basophils % (Manual) Seg Neutrophils # Seg Neutrophils # Man Lymphocytes # (Manual) Monocytes # (Manual) Eosinophils # (Manual) Basophils # (Manual) PT INR D-Dimer ABG pH POC ABG pCO2 POC ABG pO2 ABG pO2 ABG HCO3 ABG O2 Saturation ABG Base Excess ABG Hemoglobin ABG Oxyhemoglobin ABG Potassium ABG Glucose Oxyhemoglobin Carboxyhemoglobin Sodium Potassium Chloride Carbon Dioxide BUN Creatinine Glucose POC Glucose 130 H 139 H 136 H Calcium Ferritin Total Bilirubin Alkaline Phosphatase Lactate Dehydrogenase Total Creatine Kinase CK-MB (CK-2) Rel Index Troponin T C-Reactive Protein Total Protein Albumin Prealbumin LDL Cholesterol Direct HDL Cholesterol Arterial Blood Glucose Arterial Blood Ionized Calcium Urine WBC (Auto) 04/03/20 04/03/20 04/04/20 16:51 23:25 05:29 WBC RBC Hgb Hct MCV MCH RDW Plt Count Lymph % (Auto) [place] % (Auto) Eos % (Auto) Lymph # (Auto) [place] # (Auto) Eos # (Auto) Seg Neutrophils % Seg Neuts % (Manual) Lymphocytes % (Manual) Monocytes % (Manual) Basophils % (Manual) Seg Neutrophils # Seg Neutrophils # Man Lymphocytes # (Manual) Monocytes # (Manual) Eosinophils # (Manual) Basophils # (Manual) PT INR D-Dimer ABG pH POC ABG pCO2 POC ABG pO2 ABG pO2 ABG HCO3 ABG O2 Saturation ABG Base Excess ABG Hemoglobin ABG Oxyhemoglobin ABG Potassium ABG Glucose Oxyhemoglobin Carboxyhemoglobin Sodium Potassium Chloride Carbon Dioxide BUN Creatinine Glucose POC Glucose 118 H 111 H 126 H Calcium Ferritin Total Bilirubin Alkaline Phosphatase Lactate Dehydrogenase Total Creatine Kinase CK-MB (CK-2) Rel Index Troponin T C-Reactive Protein Total Protein Albumin Prealbumin LDL Cholesterol Direct HDL Cholesterol Arterial Blood Glucose Arterial Blood Ionized Calcium Urine WBC (Auto) 04/04/20 04/04/20 04/04/20 11:47 17:41 23:05 WBC RBC Hgb Hct MCV MCH RDW Plt Count Lymph % (Auto) [place] % (Auto) Eos % (Auto) Lymph # (Auto) [place] # (Auto) Eos # (Auto) Seg Neutrophils % Seg Neuts % (Manual) Lymphocytes % (Manual) Monocytes % (Manual) Basophils % (Manual) Seg Neutrophils # Seg Neutrophils # Man Lymphocytes # (Manual) Monocytes # (Manual) Eosinophils # (Manual) Basophils # (Manual) PT INR D-Dimer ABG pH POC ABG pCO2 POC ABG pO2 ABG pO2 ABG HCO3 ABG O2 Saturation ABG Base Excess ABG Hemoglobin ABG Oxyhemoglobin ABG Potassium ABG Glucose Oxyhemoglobin Carboxyhemoglobin Sodium Potassium Chloride Carbon Dioxide BUN Creatinine Glucose POC Glucose 123 H 120 H 119 H Calcium Ferritin Total Bilirubin Alkaline Phosphatase Lactate Dehydrogenase Total Creatine Kinase CK-MB (CK-2) Rel Index Troponin T C-Reactive Protein Total Protein Albumin Prealbumin LDL Cholesterol Direct HDL Cholesterol Arterial Blood Glucose Arterial Blood Ionized Calcium Urine WBC (Auto) 04/05/20 04/05/20 04/05/20 05:14 12:16 18:48 WBC RBC Hgb Hct MCV MCH RDW Plt Count Lymph % (Auto) [place] % (Auto) Eos % (Auto) Lymph # (Auto) [place] # (Auto) Eos # (Auto) Seg Neutrophils % Seg Neuts % (Manual) Lymphocytes % (Manual) Monocytes % (Manual) Basophils % (Manual) Seg Neutrophils # Seg Neutrophils # Man Lymphocytes # (Manual) Monocytes # (Manual) Eosinophils # (Manual) Basophils # (Manual) PT INR D-Dimer ABG pH POC ABG pCO2 POC ABG pO2 ABG pO2 ABG HCO3 ABG O2 Saturation ABG Base Excess ABG Hemoglobin ABG Oxyhemoglobin ABG Potassium ABG Glucose Oxyhemoglobin Carboxyhemoglobin Sodium Potassium Chloride Carbon Dioxide BUN Creatinine Glucose POC Glucose 123 H 148 H 106 H Calcium Ferritin Total Bilirubin Alkaline Phosphatase Lactate Dehydrogenase Total Creatine Kinase CK-MB (CK-2) Rel Index Troponin T C-Reactive Protein Total Protein Albumin Prealbumin LDL Cholesterol Direct HDL Cholesterol Arterial Blood Glucose Arterial Blood Ionized Calcium Urine WBC (Auto) 04/06/20 04/06/20 04/06/20 00:47 03:26 08:24 WBC RBC Hgb Hct MCV MCH RDW Plt Count Lymph % (Auto) [place] % (Auto) Eos % (Auto) Lymph # (Auto) [place] # (Auto) Eos # (Auto) Seg Neutrophils % Seg Neuts % (Manual) Lymphocytes % (Manual) Monocytes % (Manual) Basophils % (Manual) Seg Neutrophils # Seg Neutrophils # Man Lymphocytes # (Manual) Monocytes # (Manual) Eosinophils # (Manual) Basophils # (Manual) PT INR D-Dimer ABG pH POC ABG pCO2 POC ABG pO2 ABG pO2 ABG HCO3 ABG O2 Saturation ABG Base Excess ABG Hemoglobin ABG Oxyhemoglobin ABG Potassium ABG Glucose Oxyhemoglobin Carboxyhemoglobin Sodium Potassium Chloride Carbon Dioxide BUN Creatinine Glucose POC Glucose 129 H 134 H 131 H Calcium Ferritin Total Bilirubin Alkaline Phosphatase Lactate Dehydrogenase Total Creatine Kinase CK-MB (CK-2) Rel Index Troponin T C-Reactive Protein Total Protein Albumin Prealbumin LDL Cholesterol Direct HDL Cholesterol Arterial Blood Glucose Arterial Blood Ionized Calcium Urine WBC (Auto) 04/06/20 04/06/20 04/06/20 11:16 16:27 23:01 WBC RBC Hgb Hct MCV MCH RDW Plt Count Lymph % (Auto) [place] % (Auto) Eos % (Auto) Lymph # (Auto) [place] # (Auto) Eos # (Auto) Seg Neutrophils % Seg Neuts % (Manual) Lymphocytes % (Manual) Monocytes % (Manual) Basophils % (Manual) Seg Neutrophils # Seg Neutrophils # Man Lymphocytes # (Manual) Monocytes # (Manual) Eosinophils # (Manual) Basophils # (Manual) PT INR D-Dimer ABG pH POC ABG pCO2 POC ABG pO2 ABG pO2 ABG HCO3 ABG O2 Saturation ABG Base Excess ABG Hemoglobin ABG Oxyhemoglobin ABG Potassium ABG Glucose Oxyhemoglobin Carboxyhemoglobin Sodium Potassium Chloride Carbon Dioxide BUN Creatinine Glucose POC Glucose 131 H 107 H 125 H Calcium Ferritin Total Bilirubin Alkaline Phosphatase Lactate Dehydrogenase Total Creatine Kinase CK-MB (CK-2) Rel Index Troponin T C-Reactive Protein Total Protein Albumin Prealbumin LDL Cholesterol Direct HDL Cholesterol Arterial Blood Glucose Arterial Blood Ionized Calcium Urine WBC (Auto) 04/07/20 04/07/20 04/07/20 05:24 12:41 17:40 WBC RBC Hgb Hct MCV MCH RDW Plt Count Lymph % (Auto) [place] % (Auto) Eos % (Auto) Lymph # (Auto) [place] # (Auto) Eos # (Auto) Seg Neutrophils % Seg Neuts % (Manual) Lymphocytes % (Manual) Monocytes % (Manual) Basophils % (Manual) Seg Neutrophils # Seg Neutrophils # Man Lymphocytes # (Manual) Monocytes # (Manual) Eosinophils # (Manual) Basophils # (Manual) PT INR D-Dimer ABG pH POC ABG pCO2 POC ABG pO2 ABG pO2 ABG HCO3 ABG O2 Saturation ABG Base Excess ABG Hemoglobin ABG Oxyhemoglobin ABG Potassium ABG Glucose Oxyhemoglobin Carboxyhemoglobin Sodium Potassium Chloride Carbon Dioxide BUN Creatinine Glucose POC Glucose 125 H 145 H 123 H Calcium Ferritin Total Bilirubin Alkaline Phosphatase Lactate Dehydrogenase Total Creatine Kinase CK-MB (CK-2) Rel Index Troponin T C-Reactive Protein Total Protein Albumin Prealbumin LDL Cholesterol Direct HDL Cholesterol Arterial Blood Glucose Arterial Blood Ionized Calcium Urine WBC (Auto) 04/07/20 04/08/20 04/08/20 23:22 05:40 11:29 WBC RBC Hgb Hct MCV MCH RDW Plt Count Lymph % (Auto) [place] % (Auto) Eos % (Auto) Lymph # (Auto) [place] # (Auto) Eos # (Auto) Seg Neutrophils % Seg Neuts % (Manual) Lymphocytes % (Manual) Monocytes % (Manual) Basophils % (Manual) Seg Neutrophils # Seg Neutrophils # Man Lymphocytes # (Manual) Monocytes # (Manual) Eosinophils # (Manual) Basophils # (Manual) PT INR D-Dimer ABG pH POC ABG pCO2 POC ABG pO2 ABG pO2 ABG HCO3 ABG O2 Saturation ABG Base Excess ABG Hemoglobin ABG Oxyhemoglobin ABG Potassium ABG Glucose Oxyhemoglobin Carboxyhemoglobin Sodium Potassium Chloride Carbon Dioxide BUN Creatinine Glucose POC Glucose 133 H 125 H 116 H Calcium Ferritin Total Bilirubin Alkaline Phosphatase Lactate Dehydrogenase Total Creatine Kinase CK-MB (CK-2) Rel Index Troponin T C-Reactive Protein Total Protein Albumin Prealbumin LDL Cholesterol Direct HDL Cholesterol Arterial Blood Glucose Arterial Blood Ionized Calcium Urine WBC (Auto) 04/08/20 04/09/20 04/09/20 17:43 05:47 12:22 WBC RBC Hgb Hct MCV MCH RDW Plt Count Lymph % (Auto) [place] % (Auto) Eos % (Auto) Lymph # (Auto) [place] # (Auto) Eos # (Auto) Seg Neutrophils % Seg Neuts % (Manual) Lymphocytes % (Manual) Monocytes % (Manual) Basophils % (Manual) Seg Neutrophils # Seg Neutrophils # Man Lymphocytes # (Manual) Monocytes # (Manual) Eosinophils # (Manual) Basophils # (Manual) PT INR D-Dimer ABG pH POC ABG pCO2 POC ABG pO2 ABG pO2 ABG HCO3 ABG O2 Saturation ABG Base Excess ABG Hemoglobin ABG Oxyhemoglobin ABG Potassium ABG Glucose Oxyhemoglobin Carboxyhemoglobin Sodium Potassium Chloride Carbon Dioxide BUN Creatinine Glucose POC Glucose 123 H 108 H 116 H Calcium Ferritin Total Bilirubin Alkaline Phosphatase Lactate Dehydrogenase Total Creatine Kinase CK-MB (CK-2) Rel Index Troponin T C-Reactive Protein Total Protein Albumin Prealbumin LDL Cholesterol Direct HDL Cholesterol Arterial Blood Glucose Arterial Blood Ionized Calcium Urine WBC (Auto) 04/09/20 04/09/20 04/10/20 17:24 23:52 06:10 WBC RBC Hgb Hct MCV MCH RDW Plt Count Lymph % (Auto) [place] % (Auto) Eos % (Auto) Lymph # (Auto) [place] # (Auto) Eos # (Auto) Seg Neutrophils % Seg Neuts % (Manual) Lymphocytes % (Manual) Monocytes % (Manual) Basophils % (Manual) Seg Neutrophils # Seg Neutrophils # Man Lymphocytes # (Manual) Monocytes # (Manual) Eosinophils # (Manual) Basophils # (Manual) PT INR D-Dimer ABG pH POC ABG pCO2 POC ABG pO2 ABG pO2 ABG HCO3 ABG O2 Saturation ABG Base Excess ABG Hemoglobin ABG Oxyhemoglobin ABG Potassium ABG Glucose Oxyhemoglobin Carboxyhemoglobin Sodium Potassium Chloride Carbon Dioxide BUN Creatinine Glucose POC Glucose 108 H 126 H 122 H Calcium Ferritin Total Bilirubin Alkaline Phosphatase Lactate Dehydrogenase Total Creatine Kinase CK-MB (CK-2) Rel Index Troponin T C-Reactive Protein Total Protein Albumin Prealbumin LDL Cholesterol Direct HDL Cholesterol Arterial Blood Glucose Arterial Blood Ionized Calcium Urine WBC (Auto) 04/10/20 04/10/20 04/10/20 11:27 18:11 23:24 WBC RBC Hgb Hct MCV MCH RDW Plt Count Lymph % (Auto) [place] % (Auto) Eos % (Auto) Lymph # (Auto) [place] # (Auto) Eos # (Auto) Seg Neutrophils % Seg Neuts % (Manual) Lymphocytes % (Manual) Monocytes % (Manual) Basophils % (Manual) Seg Neutrophils # Seg Neutrophils # Man Lymphocytes # (Manual) Monocytes # (Manual) Eosinophils # (Manual) Basophils # (Manual) PT INR D-Dimer ABG pH POC ABG pCO2 POC ABG pO2 ABG pO2 ABG HCO3 ABG O2 Saturation ABG Base Excess ABG Hemoglobin ABG Oxyhemoglobin ABG Potassium ABG Glucose Oxyhemoglobin Carboxyhemoglobin Sodium Potassium Chloride Carbon Dioxide BUN Creatinine Glucose POC Glucose 129 H 125 H 107 H Calcium Ferritin Total Bilirubin Alkaline Phosphatase Lactate Dehydrogenase Total Creatine Kinase CK-MB (CK-2) Rel Index Troponin T C-Reactive Protein Total Protein Albumin Prealbumin LDL Cholesterol Direct HDL Cholesterol Arterial Blood Glucose Arterial Blood Ionized Calcium Urine WBC (Auto) 04/11/20 04/11/20 04/11/20 05:28 11:46 23:49 WBC RBC Hgb Hct MCV MCH RDW Plt Count Lymph % (Auto) [place] % (Auto) Eos % (Auto) Lymph # (Auto) [place] # (Auto) Eos # (Auto) Seg Neutrophils % Seg Neuts % (Manual) Lymphocytes % (Manual) Monocytes % (Manual) Basophils % (Manual) Seg Neutrophils # Seg Neutrophils # Man Lymphocytes # (Manual) Monocytes # (Manual) Eosinophils # (Manual) Basophils # (Manual) PT INR D-Dimer ABG pH POC ABG pCO2 POC ABG pO2 ABG pO2 ABG HCO3 ABG O2 Saturation ABG Base Excess ABG Hemoglobin ABG Oxyhemoglobin ABG Potassium ABG Glucose Oxyhemoglobin Carboxyhemoglobin Sodium Potassium Chloride Carbon Dioxide BUN Creatinine Glucose POC Glucose 122 H 122 H 116 H Calcium Ferritin Total Bilirubin Alkaline Phosphatase Lactate Dehydrogenase Total Creatine Kinase CK-MB (CK-2) Rel Index Troponin T C-Reactive Protein Total Protein Albumin Prealbumin LDL Cholesterol Direct HDL Cholesterol Arterial Blood Glucose Arterial Blood Ionized Calcium Urine WBC (Auto) 04/12/20 04/12/20 04/12/20 09:07 09:07 11:39 WBC 13.1 H RBC 3.59 L Hgb 9.5 L Hct 29.8 L MCV 83 L MCH 26 L RDW 16.6 H Plt Count 591 H Lymph % (Auto) [place] % (Auto) Eos % (Auto) Lymph # (Auto) [place] # (Auto) Eos # (Auto) Seg Neutrophils % Seg Neuts % (Manual) 86.0 H Lymphocytes % (Manual) 7.0 L Monocytes % (Manual) Basophils % (Manual) Seg Neutrophils # Seg Neutrophils # Man 11.3 H Lymphocytes # (Manual) 0.9 L Monocytes # (Manual) Eosinophils # (Manual) Basophils # (Manual) PT INR D-Dimer ABG pH POC ABG pCO2 POC ABG pO2 ABG pO2 ABG HCO3 ABG O2 Saturation ABG Base Excess ABG Hemoglobin ABG Oxyhemoglobin ABG Potassium ABG Glucose Oxyhemoglobin Carboxyhemoglobin Sodium Potassium Chloride Carbon Dioxide 36 H BUN Creatinine < 0.2 L Glucose 132 H POC Glucose 136 H Calcium Ferritin Total Bilirubin Alkaline Phosphatase Lactate Dehydrogenase Total Creatine Kinase CK-MB (CK-2) Rel Index Troponin T C-Reactive Protein Total Protein Albumin 2.7 L Prealbumin LDL Cholesterol Direct HDL Cholesterol Arterial Blood Glucose Arterial Blood Ionized Calcium Urine WBC (Auto) 04/12/20 04/12/20 04/13/20 18:13 23:07 05:45 WBC RBC Hgb Hct MCV MCH RDW Plt Count Lymph % (Auto) [place] % (Auto) Eos % (Auto) Lymph # (Auto) [place] # (Auto) Eos # (Auto) Seg Neutrophils % Seg Neuts % (Manual) Lymphocytes % (Manual) Monocytes % (Manual) Basophils % (Manual) Seg Neutrophils # Seg Neutrophils # Man Lymphocytes # (Manual) Monocytes # (Manual) Eosinophils # (Manual) Basophils # (Manual) PT INR D-Dimer ABG pH POC ABG pCO2 POC ABG pO2 ABG pO2 ABG HCO3 ABG O2 Saturation ABG Base Excess ABG Hemoglobin ABG Oxyhemoglobin ABG Potassium ABG Glucose Oxyhemoglobin Carboxyhemoglobin Sodium Potassium Chloride Carbon Dioxide BUN Creatinine Glucose POC Glucose 107 H 106 H 125 H Calcium Ferritin Total Bilirubin Alkaline Phosphatase Lactate Dehydrogenase Total Creatine Kinase CK-MB (CK-2) Rel Index Troponin T C-Reactive Protein Total Protein Albumin Prealbumin LDL Cholesterol Direct HDL Cholesterol Arterial Blood Glucose Arterial Blood Ionized Calcium Urine WBC (Auto) 04/13/20 04/13/20 04/13/20 11:18 17:56 23:33 WBC RBC Hgb Hct MCV MCH RDW Plt Count Lymph % (Auto) [place] % (Auto) Eos % (Auto) Lymph # (Auto) [place] # (Auto) Eos # (Auto) Seg Neutrophils % Seg Neuts % (Manual) Lymphocytes % (Manual) Monocytes % (Manual) Basophils % (Manual) Seg Neutrophils # Seg Neutrophils # Man Lymphocytes # (Manual) Monocytes # (Manual) Eosinophils # (Manual) Basophils # (Manual) PT INR D-Dimer ABG pH POC ABG pCO2 POC ABG pO2 ABG pO2 ABG HCO3 ABG O2 Saturation ABG Base Excess ABG Hemoglobin ABG Oxyhemoglobin ABG Potassium ABG Glucose Oxyhemoglobin Carboxyhemoglobin Sodium Potassium Chloride Carbon Dioxide BUN Creatinine Glucose POC Glucose 133 H 110 H 114 H Calcium Ferritin Total Bilirubin Alkaline Phosphatase Lactate Dehydrogenase Total Creatine Kinase CK-MB (CK-2) Rel Index Troponin T C-Reactive Protein Total Protein Albumin Prealbumin LDL Cholesterol Direct HDL Cholesterol Arterial Blood Glucose Arterial Blood Ionized Calcium Urine WBC (Auto) 04/14/20 04/14/20 04/14/20 05:58 11:45 17:48 WBC RBC Hgb Hct MCV MCH RDW Plt Count Lymph % (Auto) [place] % (Auto) Eos % (Auto) Lymph # (Auto) [place] # (Auto) Eos # (Auto) Seg Neutrophils % Seg Neuts % (Manual) Lymphocytes % (Manual) Monocytes % (Manual) Basophils % (Manual) Seg Neutrophils # Seg Neutrophils # Man Lymphocytes # (Manual) Monocytes # (Manual) Eosinophils # (Manual) Basophils # (Manual) PT INR D-Dimer ABG pH POC ABG pCO2 POC ABG pO2 ABG pO2 ABG HCO3 ABG O2 Saturation ABG Base Excess ABG Hemoglobin ABG Oxyhemoglobin ABG Potassium ABG Glucose Oxyhemoglobin Carboxyhemoglobin Sodium Potassium Chloride Carbon Dioxide BUN Creatinine Glucose POC Glucose 115 H 122 H 124 H Calcium Ferritin Total Bilirubin Alkaline Phosphatase Lactate Dehydrogenase Total Creatine Kinase CK-MB (CK-2) Rel Index Troponin T C-Reactive Protein Total Protein Albumin Prealbumin LDL Cholesterol Direct HDL Cholesterol Arterial Blood Glucose Arterial Blood Ionized Calcium Urine WBC (Auto) 04/15/20 04/15/20 04/15/20 00:11 05:38 11:31 WBC RBC Hgb Hct MCV MCH RDW Plt Count Lymph % (Auto) [place] % (Auto) Eos % (Auto) Lymph # (Auto) [place] # (Auto) Eos # (Auto) Seg Neutrophils % Seg Neuts % (Manual) Lymphocytes % (Manual) Monocytes % (Manual) Basophils % (Manual) Seg Neutrophils # Seg Neutrophils # Man Lymphocytes # (Manual) Monocytes # (Manual) Eosinophils # (Manual) Basophils # (Manual) PT INR D-Dimer ABG pH POC ABG pCO2 POC ABG pO2 ABG pO2 ABG HCO3 ABG O2 Saturation ABG Base Excess ABG Hemoglobin ABG Oxyhemoglobin ABG Potassium ABG Glucose Oxyhemoglobin Carboxyhemoglobin Sodium Potassium Chloride Carbon Dioxide BUN Creatinine Glucose POC Glucose 120 H 109 H 123 H Calcium Ferritin Total Bilirubin Alkaline Phosphatase Lactate Dehydrogenase Total Creatine Kinase CK-MB (CK-2) Rel Index Troponin T C-Reactive Protein Total Protein Albumin Prealbumin LDL Cholesterol Direct HDL Cholesterol Arterial Blood Glucose Arterial Blood Ionized Calcium Urine WBC (Auto) 04/15/20 04/16/20 04/16/20 17:35 06:00 11:29 WBC RBC Hgb Hct MCV MCH RDW Plt Count Lymph % (Auto) [place] % (Auto) Eos % (Auto) Lymph # (Auto) [place] # (Auto) Eos # (Auto) Seg Neutrophils % Seg Neuts % (Manual) Lymphocytes % (Manual) Monocytes % (Manual) Basophils % (Manual) Seg Neutrophils # Seg Neutrophils # Man Lymphocytes # (Manual) Monocytes # (Manual) Eosinophils # (Manual) Basophils # (Manual) PT INR D-Dimer ABG pH POC ABG pCO2 POC ABG pO2 ABG pO2 ABG HCO3 ABG O2 Saturation ABG Base Excess ABG Hemoglobin ABG Oxyhemoglobin ABG Potassium ABG Glucose Oxyhemoglobin Carboxyhemoglobin Sodium Potassium Chloride Carbon Dioxide BUN Creatinine Glucose POC Glucose 111 H 142 H 108 H Calcium Ferritin Total Bilirubin Alkaline Phosphatase Lactate Dehydrogenase Total Creatine Kinase CK-MB (CK-2) Rel Index Troponin T C-Reactive Protein Total Protein Albumin Prealbumin LDL Cholesterol Direct HDL Cholesterol Arterial Blood Glucose Arterial Blood Ionized Calcium Urine WBC (Auto) 04/17/20 04/17/20 04/17/20 05:09 06:53 06:53 WBC 14.2 H RBC Hgb 10.1 L Hct 31.5 L MCV MCH 27 L RDW 17.2 H Plt Count 643 H Lymph % (Auto) [place] % (Auto) Eos % (Auto) Lymph # (Auto) [place] # (Auto) Eos # (Auto) Seg Neutrophils % Seg Neuts % (Manual) Lymphocytes % (Manual) Monocytes % (Manual) Basophils % (Manual) Seg Neutrophils # Seg Neutrophils # Man Lymphocytes # (Manual) Monocytes # (Manual) Eosinophils # (Manual) Basophils # (Manual) PT INR D-Dimer ABG pH POC ABG pCO2 POC ABG pO2 ABG pO2 ABG HCO3 ABG O2 Saturation ABG Base Excess ABG Hemoglobin ABG Oxyhemoglobin ABG Potassium ABG Glucose Oxyhemoglobin Carboxyhemoglobin Sodium Potassium Chloride 97.7 L Carbon Dioxide 38 H BUN Creatinine < 0.2 L Glucose 126 H POC Glucose 131 H Calcium Ferritin Total Bilirubin Alkaline Phosphatase Lactate Dehydrogenase Total Creatine Kinase CK-MB (CK-2) Rel Index Troponin T C-Reactive Protein Total Protein Albumin Prealbumin LDL Cholesterol Direct HDL Cholesterol Arterial Blood Glucose Arterial Blood Ionized Calcium Urine WBC (Auto) 04/17/20 04/18/20 04/18/20 11:21 00:23 04:01 WBC 15.3 H RBC Hgb 10.1 L Hct 31.9 L MCV 82 L MCH 26 L RDW 17.2 H Plt Count 665 H Lymph % (Auto) 12.9 L [place] % (Auto) Eos % (Auto) Lymph # (Auto) [place] # (Auto) 1.1 H Eos # (Auto) Seg Neutrophils % 78.0 H Seg Neuts % (Manual) Lymphocytes % (Manual) Monocytes % (Manual) Basophils % (Manual) Seg Neutrophils # 11.9 H Seg Neutrophils # Man Lymphocytes # (Manual) Monocytes # (Manual) Eosinophils # (Manual) Basophils # (Manual) PT INR D-Dimer ABG pH POC ABG pCO2 POC ABG pO2 ABG pO2 ABG HCO3 ABG O2 Saturation ABG Base Excess ABG Hemoglobin ABG Oxyhemoglobin ABG Potassium ABG Glucose Oxyhemoglobin Carboxyhemoglobin Sodium Potassium Chloride Carbon Dioxide BUN Creatinine Glucose POC Glucose 140 H 125 H Calcium Ferritin Total Bilirubin Alkaline Phosphatase Lactate Dehydrogenase Total Creatine Kinase CK-MB (CK-2) Rel Index Troponin T C-Reactive Protein Total Protein Albumin Prealbumin LDL Cholesterol Direct HDL Cholesterol Arterial Blood Glucose Arterial Blood Ionized Calcium Urine WBC (Auto) 04/18/20 04/18/20 04/18/20 04:01 11:29 17:30 WBC RBC Hgb Hct MCV MCH RDW Plt Count Lymph % (Auto) [place] % (Auto) Eos % (Auto) Lymph # (Auto) [place] # (Auto) Eos # (Auto) Seg Neutrophils % Seg Neuts % (Manual) Lymphocytes % (Manual) Monocytes % (Manual) Basophils % (Manual) Seg Neutrophils # Seg Neutrophils # Man Lymphocytes # (Manual) Monocytes # (Manual) Eosinophils # (Manual) Basophils # (Manual) PT INR D-Dimer ABG pH POC ABG pCO2 POC ABG pO2 ABG pO2 ABG HCO3 ABG O2 Saturation ABG Base Excess ABG Hemoglobin ABG Oxyhemoglobin ABG Potassium ABG Glucose Oxyhemoglobin Carboxyhemoglobin Sodium Potassium Chloride 97.0 L Carbon Dioxide 38 H BUN Creatinine < 0.2 L Glucose 117 H POC Glucose 136 H 107 H Calcium Ferritin Total Bilirubin Alkaline Phosphatase Lactate Dehydrogenase Total Creatine Kinase CK-MB (CK-2) Rel Index Troponin T C-Reactive Protein Total Protein Albumin Prealbumin LDL Cholesterol Direct HDL Cholesterol Arterial Blood Glucose Arterial Blood Ionized Calcium Urine WBC (Auto) 04/18/20 04/19/20 04/19/20 23:19 06:51 06:51 WBC 12.2 H RBC Hgb 9.8 L Hct 31.1 L MCV 82 L MCH 26 L RDW 17.2 H Plt Count 549 H Lymph % (Auto) 6.5 L [place] % (Auto) Eos % (Auto) Lymph # (Auto) 0.8 L [place] # (Auto) Eos # (Auto) Seg Neutrophils % 86.7 H Seg Neuts % (Manual) Lymphocytes % (Manual) Monocytes % (Manual) Basophils % (Manual) Seg Neutrophils # 10.6 H Seg Neutrophils # Man Lymphocytes # (Manual) Monocytes # (Manual) Eosinophils # (Manual) Basophils # (Manual) PT INR D-Dimer ABG pH POC ABG pCO2 POC ABG pO2 ABG pO2 ABG HCO3 ABG O2 Saturation ABG Base Excess ABG Hemoglobin ABG Oxyhemoglobin ABG Potassium ABG Glucose Oxyhemoglobin Carboxyhemoglobin Sodium Potassium Chloride 97.8 L Carbon Dioxide 38 H BUN Creatinine < 0.2 L Glucose 123 H POC Glucose 127 H Calcium Ferritin Total Bilirubin Alkaline Phosphatase Lactate Dehydrogenase Total Creatine Kinase CK-MB (CK-2) Rel Index Troponin T C-Reactive Protein Total Protein Albumin Prealbumin LDL Cholesterol Direct HDL Cholesterol Arterial Blood Glucose Arterial Blood Ionized Calcium Urine WBC (Auto) 04/19/20 04/19/20 04/20/20 13:41 18:33 05:56 WBC RBC Hgb Hct MCV MCH RDW Plt Count Lymph % (Auto) [place] % (Auto) Eos % (Auto) Lymph # (Auto) [place] # (Auto) Eos # (Auto) Seg Neutrophils % Seg Neuts % (Manual) Lymphocytes % (Manual) Monocytes % (Manual) Basophils % (Manual) Seg Neutrophils # Seg Neutrophils # Man Lymphocytes # (Manual) Monocytes # (Manual) Eosinophils # (Manual) Basophils # (Manual) PT INR D-Dimer ABG pH POC ABG pCO2 POC ABG pO2 ABG pO2 ABG HCO3 ABG O2 Saturation ABG Base Excess ABG Hemoglobin ABG Oxyhemoglobin ABG Potassium ABG Glucose Oxyhemoglobin Carboxyhemoglobin Sodium Potassium Chloride Carbon Dioxide BUN Creatinine Glucose POC Glucose 116 H 124 H 130 H Calcium Ferritin Total Bilirubin Alkaline Phosphatase Lactate Dehydrogenase Total Creatine Kinase CK-MB (CK-2) Rel Index Troponin T C-Reactive Protein Total Protein Albumin Prealbumin LDL Cholesterol Direct HDL Cholesterol Arterial Blood Glucose Arterial Blood Ionized Calcium Urine WBC (Auto) 04/20/20 04/20/20 04/20/20 06:28 06:28 11:46 WBC RBC Hgb 10.2 L Hct 31.5 L MCV 82 L MCH 27 L RDW 17.1 H Plt Count 546 H Lymph % (Auto) 10.0 L [place] % (Auto) 9.8 H Eos % (Auto) Lymph # (Auto) 1.1 L [place] # (Auto) 1.1 H Eos # (Auto) Seg Neutrophils % 78.4 H Seg Neuts % (Manual) Lymphocytes % (Manual) Monocytes % (Manual) Basophils % (Manual) Seg Neutrophils # 8.5 H Seg Neutrophils # Man Lymphocytes # (Manual) Monocytes # (Manual) Eosinophils # (Manual) Basophils # (Manual) PT INR D-Dimer ABG pH POC ABG pCO2 POC ABG pO2 ABG pO2 ABG HCO3 ABG O2 Saturation ABG Base Excess ABG Hemoglobin ABG Oxyhemoglobin ABG Potassium ABG Glucose Oxyhemoglobin Carboxyhemoglobin Sodium Potassium Chloride 97.0 L Carbon Dioxide 38 H BUN Creatinine < 0.2 L Glucose 138 H POC Glucose 130 H Calcium Ferritin Total Bilirubin Alkaline Phosphatase Lactate Dehydrogenase Total Creatine Kinase CK-MB (CK-2) Rel Index Troponin T C-Reactive Protein Total Protein Albumin Prealbumin LDL Cholesterol Direct HDL Cholesterol Arterial Blood Glucose Arterial Blood Ionized Calcium Urine WBC (Auto) 04/20/20 04/21/20 04/21/20 23:31 05:55 05:55 WBC RBC Hgb 10.0 L Hct 31.1 L MCV 82 L MCH 26 L RDW 17.0 H Plt Count 535 H Lymph % (Auto) [place] % (Auto) 9.2 H Eos % (Auto) Lymph # (Auto) 1.1 L [place] # (Auto) Eos # (Auto) Seg Neutrophils % 75.4 H Seg Neuts % (Manual) Lymphocytes % (Manual) Monocytes % (Manual) Basophils % (Manual) Seg Neutrophils # Seg Neutrophils # Man Lymphocytes # (Manual) Monocytes # (Manual) Eosinophils # (Manual) Basophils # (Manual) PT INR D-Dimer ABG pH POC ABG pCO2 POC ABG pO2 ABG pO2 ABG HCO3 ABG O2 Saturation ABG Base Excess ABG Hemoglobin ABG Oxyhemoglobin ABG Potassium ABG Glucose Oxyhemoglobin Carboxyhemoglobin Sodium Potassium Chloride 95.0 L Carbon Dioxide 34 H BUN Creatinine < 0.2 L Glucose 125 H POC Glucose 116 H Calcium Ferritin Total Bilirubin Alkaline Phosphatase Lactate Dehydrogenase Total Creatine Kinase CK-MB (CK-2) Rel Index Troponin T C-Reactive Protein Total Protein Albumin Prealbumin LDL Cholesterol Direct HDL Cholesterol Arterial Blood Glucose Arterial Blood Ionized Calcium Urine WBC (Auto) 04/22/20 04/22/20 04/22/20 00:01 07:45 07:45 WBC RBC Hgb 10.0 L Hct 30.7 L MCV 81 L MCH 27 L RDW 17.1 H Plt Count 490 H Lymph % (Auto) [place] % (Auto) Eos % (Auto) Lymph # (Auto) [place] # (Auto) Eos # (Auto) Seg Neutrophils % Seg Neuts % (Manual) 75.0 H Lymphocytes % (Manual) 11.0 L Monocytes % (Manual) 9.0 H Basophils % (Manual) Seg Neutrophils # Seg Neutrophils # Man Lymphocytes # (Manual) 0.8 L Monocytes # (Manual) Eosinophils # (Manual) Basophils # (Manual) PT INR D-Dimer ABG pH POC ABG pCO2 POC ABG pO2 ABG pO2 ABG HCO3 ABG O2 Saturation ABG Base Excess ABG Hemoglobin ABG Oxyhemoglobin ABG Potassium ABG Glucose Oxyhemoglobin Carboxyhemoglobin Sodium Potassium Chloride 96.3 L Carbon Dioxide 40 H BUN Creatinine < 0.2 L Glucose 109 H POC Glucose 110 H Calcium Ferritin Total Bilirubin Alkaline Phosphatase Lactate Dehydrogenase Total Creatine Kinase CK-MB (CK-2) Rel Index Troponin T C-Reactive Protein Total Protein Albumin Prealbumin LDL Cholesterol Direct HDL Cholesterol Arterial Blood Glucose Arterial Blood Ionized Calcium Urine WBC (Auto) 04/23/20 04/23/20 04/23/20 04:28 04:28 04:28 WBC RBC 3.64 L Hgb 9.7 L Hct 29.4 L MCV 81 L MCH 27 L RDW 17.2 H Plt Count 527 H Lymph % (Auto) [place] % (Auto) 8.9 H Eos % (Auto) Lymph # (Auto) [place] # (Auto) Eos # (Auto) Seg Neutrophils % Seg Neuts % (Manual) Lymphocytes % (Manual) Monocytes % (Manual) Basophils % (Manual) Seg Neutrophils # Seg Neutrophils # Man Lymphocytes # (Manual) Monocytes # (Manual) Eosinophils # (Manual) Basophils # (Manual) PT INR D-Dimer ABG pH POC ABG pCO2 POC ABG pO2 ABG pO2 ABG HCO3 ABG O2 Saturation ABG Base Excess ABG Hemoglobin ABG Oxyhemoglobin ABG Potassium ABG Glucose Oxyhemoglobin Carboxyhemoglobin Sodium Potassium Chloride 96.4 L Carbon Dioxide 32 H D BUN Creatinine < 0.2 L Glucose 134 H POC Glucose Calcium Ferritin Total Bilirubin Alkaline Phosphatase Lactate Dehydrogenase Total Creatine Kinase CK-MB (CK-2) Rel Index Troponin T 0.151 H* C-Reactive Protein Total Protein Albumin Prealbumin LDL Cholesterol Direct HDL Cholesterol 29 L Arterial Blood Glucose Arterial Blood Ionized Calcium Urine WBC (Auto) 04/23/20 04/23/20 04/24/20 06:03 23:41 05:28 WBC RBC 3.56 L Hgb 9.5 L Hct 28.9 L MCV 81 L MCH 27 L RDW 17.4 H Plt Count 462 H Lymph % (Auto) [place] % (Auto) Eos % (Auto) Lymph # (Auto) [place] # (Auto) Eos # (Auto) Seg Neutrophils % Seg Neuts % (Manual) 80.0 H Lymphocytes % (Manual) Monocytes % (Manual) Basophils % (Manual) Seg Neutrophils # Seg Neutrophils # Man Lymphocytes # (Manual) Monocytes # (Manual) Eosinophils # (Manual) Basophils # (Manual) PT INR D-Dimer ABG pH POC ABG pCO2 POC ABG pO2 ABG pO2 ABG HCO3 ABG O2 Saturation ABG Base Excess ABG Hemoglobin ABG Oxyhemoglobin ABG Potassium ABG Glucose Oxyhemoglobin Carboxyhemoglobin Sodium Potassium Chloride Carbon Dioxide BUN Creatinine Glucose POC Glucose 132 H 117 H Calcium Ferritin Total Bilirubin Alkaline Phosphatase Lactate Dehydrogenase Total Creatine Kinase CK-MB (CK-2) Rel Index Troponin T C-Reactive Protein Total Protein Albumin Prealbumin LDL Cholesterol Direct HDL Cholesterol Arterial Blood Glucose Arterial Blood Ionized Calcium Urine WBC (Auto) 04/24/20 04/24/20 04/24/20 05:28 05:28 05:33 WBC RBC Hgb Hct MCV MCH RDW Plt Count Lymph % (Auto) [place] % (Auto) Eos % (Auto) Lymph # (Auto) [place] # (Auto) Eos # (Auto) Seg Neutrophils % Seg Neuts % (Manual) Lymphocytes % (Manual) Monocytes % (Manual) Basophils % (Manual) Seg Neutrophils # Seg Neutrophils # Man Lymphocytes # (Manual) Monocytes # (Manual) Eosinophils # (Manual) Basophils # (Manual) PT INR D-Dimer ABG pH POC ABG pCO2 POC ABG pO2 ABG pO2 ABG HCO3 ABG O2 Saturation ABG Base Excess ABG Hemoglobin ABG Oxyhemoglobin ABG Potassium ABG Glucose Oxyhemoglobin Carboxyhemoglobin Sodium Potassium Chloride 96.1 L Carbon Dioxide 40 H D BUN Creatinine < 0.2 L Glucose 115 H POC Glucose 109 H Calcium Ferritin Total Bilirubin Alkaline Phosphatase Lactate Dehydrogenase Total Creatine Kinase CK-MB (CK-2) Rel Index Troponin T 0.181 H* C-Reactive Protein Total Protein Albumin Prealbumin LDL Cholesterol Direct HDL Cholesterol Arterial Blood Glucose Arterial Blood Ionized Calcium Urine WBC (Auto) 04/24/20 04/24/20 04/25/20 11:17 18:23 00:12 WBC RBC Hgb Hct MCV MCH RDW Plt Count Lymph % (Auto) [place] % (Auto) Eos % (Auto) Lymph # (Auto) [place] # (Auto) Eos # (Auto) Seg Neutrophils % Seg Neuts % (Manual) Lymphocytes % (Manual) Monocytes % (Manual) Basophils % (Manual) Seg Neutrophils # Seg Neutrophils # Man Lymphocytes # (Manual) Monocytes # (Manual) Eosinophils # (Manual) Basophils # (Manual) PT INR D-Dimer ABG pH POC ABG pCO2 POC ABG pO2 ABG pO2 ABG HCO3 ABG O2 Saturation ABG Base Excess ABG Hemoglobin ABG Oxyhemoglobin ABG Potassium ABG Glucose Oxyhemoglobin Carboxyhemoglobin Sodium Potassium Chloride Carbon Dioxide BUN Creatinine Glucose POC Glucose 117 H 109 H 113 H Calcium Ferritin Total Bilirubin Alkaline Phosphatase Lactate Dehydrogenase Total Creatine Kinase CK-MB (CK-2) Rel Index Troponin T C-Reactive Protein Total Protein Albumin Prealbumin LDL Cholesterol Direct HDL Cholesterol Arterial Blood Glucose Arterial Blood Ionized Calcium Urine WBC (Auto) 04/25/20 04/25/20 04/25/20 06:34 06:34 11:28 WBC 11.7 H RBC Hgb 10.0 L Hct 31.7 L MCV 82 L MCH 26 L RDW 17.5 H Plt Count 564 H Lymph % (Auto) [place] % (Auto) Eos % (Auto) Lymph # (Auto) [place] # (Auto) Eos # (Auto) Seg Neutrophils % Seg Neuts % (Manual) 78.0 H Lymphocytes % (Manual) 10.0 L Monocytes % (Manual) 9.0 H Basophils % (Manual) Seg Neutrophils # Seg Neutrophils # Man 9.1 H Lymphocytes # (Manual) Monocytes # (Manual) 1.1 H Eosinophils # (Manual) Basophils # (Manual) PT INR D-Dimer ABG pH POC ABG pCO2 POC ABG pO2 ABG pO2 ABG HCO3 ABG O2 Saturation ABG Base Excess ABG Hemoglobin ABG Oxyhemoglobin ABG Potassium ABG Glucose Oxyhemoglobin Carboxyhemoglobin Sodium Potassium Chloride Carbon Dioxide 39 H BUN Creatinine < 0.2 L Glucose 103 H POC Glucose 112 H Calcium Ferritin Total Bilirubin Alkaline Phosphatase Lactate Dehydrogenase Total Creatine Kinase CK-MB (CK-2) Rel Index Troponin T C-Reactive Protein Total Protein Albumin Prealbumin LDL Cholesterol Direct HDL Cholesterol Arterial Blood Glucose Arterial Blood Ionized Calcium Urine WBC (Auto) 04/27/20 04/27/20 04/27/20 11:48 17:08 23:31 WBC RBC Hgb Hct MCV MCH RDW Plt Count Lymph % (Auto) [place] % (Auto) Eos % (Auto) Lymph # (Auto) [place] # (Auto) Eos # (Auto) Seg Neutrophils % Seg Neuts % (Manual) Lymphocytes % (Manual) Monocytes % (Manual) Basophils % (Manual) Seg Neutrophils # Seg Neutrophils # Man Lymphocytes # (Manual) Monocytes # (Manual) Eosinophils # (Manual) Basophils # (Manual) PT INR D-Dimer ABG pH POC ABG pCO2 POC ABG pO2 ABG pO2 ABG HCO3 ABG O2 Saturation ABG Base Excess ABG Hemoglobin ABG Oxyhemoglobin ABG Potassium ABG Glucose Oxyhemoglobin Carboxyhemoglobin Sodium Potassium Chloride Carbon Dioxide BUN Creatinine Glucose POC Glucose 124 H 118 H 122 H Calcium Ferritin Total Bilirubin Alkaline Phosphatase Lactate Dehydrogenase Total Creatine Kinase CK-MB (CK-2) Rel Index Troponin T C-Reactive Protein Total Protein Albumin Prealbumin LDL Cholesterol Direct HDL Cholesterol Arterial Blood Glucose Arterial Blood Ionized Calcium Urine WBC (Auto) 04/28/20 04/29/20 04/29/20 05:42 00:14 05:30 WBC RBC Hgb Hct MCV MCH RDW Plt Count Lymph % (Auto) [place] % (Auto) Eos % (Auto) Lymph # (Auto) [place] # (Auto) Eos # (Auto) Seg Neutrophils % Seg Neuts % (Manual) Lymphocytes % (Manual) Monocytes % (Manual) Basophils % (Manual) Seg Neutrophils # Seg Neutrophils # Man Lymphocytes # (Manual) Monocytes # (Manual) Eosinophils # (Manual) Basophils # (Manual) PT INR D-Dimer ABG pH POC ABG pCO2 POC ABG pO2 ABG pO2 ABG HCO3 ABG O2 Saturation ABG Base Excess ABG Hemoglobin ABG Oxyhemoglobin ABG Potassium ABG Glucose Oxyhemoglobin Carboxyhemoglobin Sodium Potassium Chloride Carbon Dioxide BUN Creatinine Glucose POC Glucose 122 H 115 H 123 H Calcium Ferritin Total Bilirubin Alkaline Phosphatase Lactate Dehydrogenase Total Creatine Kinase CK-MB (CK-2) Rel Index Troponin T C-Reactive Protein Total Protein Albumin Prealbumin LDL Cholesterol Direct HDL Cholesterol Arterial Blood Glucose Arterial Blood Ionized Calcium Urine WBC (Auto) 04/30/20 05/01/20 05/01/20 00:29 05:39 12:30 WBC RBC Hgb Hct MCV MCH RDW Plt Count Lymph % (Auto) [place] % (Auto) Eos % (Auto) Lymph # (Auto) [place] # (Auto) Eos # (Auto) Seg Neutrophils % Seg Neuts % (Manual) Lymphocytes % (Manual) Monocytes % (Manual) Basophils % (Manual) Seg Neutrophils # Seg Neutrophils # Man Lymphocytes # (Manual) Monocytes # (Manual) Eosinophils # (Manual) Basophils # (Manual) PT INR D-Dimer ABG pH POC ABG pCO2 POC ABG pO2 ABG pO2 ABG HCO3 ABG O2 Saturation ABG Base Excess ABG Hemoglobin ABG Oxyhemoglobin ABG Potassium ABG Glucose Oxyhemoglobin Carboxyhemoglobin Sodium Potassium Chloride Carbon Dioxide BUN Creatinine Glucose POC Glucose 106 H 109 H 108 H Calcium Ferritin Total Bilirubin Alkaline Phosphatase Lactate Dehydrogenase Total Creatine Kinase CK-MB (CK-2) Rel Index Troponin T C-Reactive Protein Total Protein Albumin Prealbumin LDL Cholesterol Direct HDL Cholesterol Arterial Blood Glucose Arterial Blood Ionized Calcium Urine WBC (Auto) 05/01/20 05/03/20 05/03/20 23:35 05:09 11:36 WBC RBC Hgb Hct MCV MCH RDW Plt Count Lymph % (Auto) [place] % (Auto) Eos % (Auto) Lymph # (Auto) [place] # (Auto) Eos # (Auto) Seg Neutrophils % Seg Neuts % (Manual) Lymphocytes % (Manual) Monocytes % (Manual) Basophils % (Manual) Seg Neutrophils # Seg Neutrophils # Man Lymphocytes # (Manual) Monocytes # (Manual) Eosinophils # (Manual) Basophils # (Manual) PT INR D-Dimer ABG pH POC ABG pCO2 POC ABG pO2 ABG pO2 ABG HCO3 ABG O2 Saturation ABG Base Excess ABG Hemoglobin ABG Oxyhemoglobin ABG Potassium ABG Glucose Oxyhemoglobin Carboxyhemoglobin Sodium Potassium Chloride Carbon Dioxide BUN Creatinine Glucose POC Glucose 116 H 117 H 116 H Calcium Ferritin Total Bilirubin Alkaline Phosphatase Lactate Dehydrogenase Total Creatine Kinase CK-MB (CK-2) Rel Index Troponin T C-Reactive Protein Total Protein Albumin Prealbumin LDL Cholesterol Direct HDL Cholesterol Arterial Blood Glucose Arterial Blood Ionized Calcium Urine WBC (Auto) 05/03/20 05/03/20 05/03/20 14:06 14:06 23:39 WBC 12.5 H RBC Hgb 10.0 L Hct 31.2 L MCV 80 L MCH 26 L RDW 17.6 H Plt Count 488 H Lymph % (Auto) [place] % (Auto) Eos % (Auto) Lymph # (Auto) [place] # (Auto) Eos # (Auto) Seg Neutrophils % Seg Neuts % (Manual) Lymphocytes % (Manual) Monocytes % (Manual) Basophils % (Manual) Seg Neutrophils # Seg Neutrophils # Man Lymphocytes # (Manual) Monocytes # (Manual) Eosinophils # (Manual) Basophils # (Manual) PT INR D-Dimer ABG pH POC ABG pCO2 POC ABG pO2 ABG pO2 ABG HCO3 ABG O2 Saturation ABG Base Excess ABG Hemoglobin ABG Oxyhemoglobin ABG Potassium ABG Glucose Oxyhemoglobin Carboxyhemoglobin Sodium Potassium Chloride 95.4 L Carbon Dioxide 40 H BUN Creatinine < 0.2 L Glucose 121 H POC Glucose 107 H Calcium Ferritin Total Bilirubin Alkaline Phosphatase Lactate Dehydrogenase Total Creatine Kinase CK-MB (CK-2) Rel Index Troponin T C-Reactive Protein Total Protein Albumin Prealbumin LDL Cholesterol Direct HDL Cholesterol Arterial Blood Glucose Arterial Blood Ionized Calcium Urine WBC (Auto) 05/04/20 05/04/20 05/04/20 11:31 16:57 23:18 WBC RBC Hgb Hct MCV MCH RDW Plt Count Lymph % (Auto) [place] % (Auto) Eos % (Auto) Lymph # (Auto) [place] # (Auto) Eos # (Auto) Seg Neutrophils % Seg Neuts % (Manual) Lymphocytes % (Manual) Monocytes % (Manual) Basophils % (Manual) Seg Neutrophils # Seg Neutrophils # Man Lymphocytes # (Manual) Monocytes # (Manual) Eosinophils # (Manual) Basophils # (Manual) PT INR D-Dimer ABG pH POC ABG pCO2 POC ABG pO2 ABG pO2 ABG HCO3 ABG O2 Saturation ABG Base Excess ABG Hemoglobin ABG Oxyhemoglobin ABG Potassium ABG Glucose Oxyhemoglobin Carboxyhemoglobin Sodium Potassium Chloride Carbon Dioxide BUN Creatinine Glucose POC Glucose 113 H 126 H 126 H Calcium Ferritin Total Bilirubin Alkaline Phosphatase Lactate Dehydrogenase Total Creatine Kinase CK-MB (CK-2) Rel Index Troponin T C-Reactive Protein Total Protein Albumin Prealbumin LDL Cholesterol Direct HDL Cholesterol Arterial Blood Glucose Arterial Blood Ionized Calcium Urine WBC (Auto) 05/05/20 05/05/20 05/05/20 05:32 11:11 23:57 WBC RBC Hgb Hct MCV MCH RDW Plt Count Lymph % (Auto) [place] % (Auto) Eos % (Auto) Lymph # (Auto) [place] # (Auto) Eos # (Auto) Seg Neutrophils % Seg Neuts % (Manual) Lymphocytes % (Manual) Monocytes % (Manual) Basophils % (Manual) Seg Neutrophils # Seg Neutrophils # Man Lymphocytes # (Manual) Monocytes # (Manual) Eosinophils # (Manual) Basophils # (Manual) PT INR D-Dimer ABG pH POC ABG pCO2 POC ABG pO2 ABG pO2 ABG HCO3 ABG O2 Saturation ABG Base Excess ABG Hemoglobin ABG Oxyhemoglobin ABG Potassium ABG Glucose Oxyhemoglobin Carboxyhemoglobin Sodium Potassium Chloride Carbon Dioxide BUN Creatinine Glucose POC Glucose 109 H 124 H 119 H Calcium Ferritin Total Bilirubin Alkaline Phosphatase Lactate Dehydrogenase Total Creatine Kinase CK-MB (CK-2) Rel Index Troponin T C-Reactive Protein Total Protein Albumin Prealbumin LDL Cholesterol Direct HDL Cholesterol Arterial Blood Glucose Arterial Blood Ionized Calcium Urine WBC (Auto) 05/06/20 05/06/20 05/07/20 05:34 23:08 04:43 WBC RBC Hgb 10.1 L Hct 31.9 L MCV 81 L MCH 25 L RDW 17.6 H Plt Count 506 H Lymph % (Auto) [place] % (Auto) 8.6 H Eos % (Auto) Lymph # (Auto) [place] # (Auto) 0.9 H Eos # (Auto) Seg Neutrophils % Seg Neuts % (Manual) Lymphocytes % (Manual) Monocytes % (Manual) Basophils % (Manual) Seg Neutrophils # Seg Neutrophils # Man Lymphocytes # (Manual) Monocytes # (Manual) Eosinophils # (Manual) Basophils # (Manual) PT INR D-Dimer ABG pH POC ABG pCO2 POC ABG pO2 ABG pO2 ABG HCO3 ABG O2 Saturation ABG Base Excess ABG Hemoglobin ABG Oxyhemoglobin ABG Potassium ABG Glucose Oxyhemoglobin Carboxyhemoglobin Sodium Potassium Chloride Carbon Dioxide BUN Creatinine Glucose POC Glucose 121 H 107 H Calcium Ferritin Total Bilirubin Alkaline Phosphatase Lactate Dehydrogenase Total Creatine Kinase CK-MB (CK-2) Rel Index Troponin T C-Reactive Protein Total Protein Albumin Prealbumin LDL Cholesterol Direct HDL Cholesterol Arterial Blood Glucose Arterial Blood Ionized Calcium Urine WBC (Auto) 05/07/20 05/07/20 05/07/20 06:18 17:13 23:29 WBC RBC Hgb Hct MCV MCH RDW Plt Count Lymph % (Auto) [place] % (Auto) Eos % (Auto) Lymph # (Auto) [place] # (Auto) Eos # (Auto) Seg Neutrophils % Seg Neuts % (Manual) Lymphocytes % (Manual) Monocytes % (Manual) Basophils % (Manual) Seg Neutrophils # Seg Neutrophils # Man Lymphocytes # (Manual) Monocytes # (Manual) Eosinophils # (Manual) Basophils # (Manual) PT INR D-Dimer ABG pH POC ABG pCO2 POC ABG pO2 ABG pO2 ABG HCO3 ABG O2 Saturation ABG Base Excess ABG Hemoglobin ABG Oxyhemoglobin ABG Potassium ABG Glucose Oxyhemoglobin Carboxyhemoglobin Sodium Potassium Chloride Carbon Dioxide BUN Creatinine Glucose POC Glucose 121 H 122 H 114 H Calcium Ferritin Total Bilirubin Alkaline Phosphatase Lactate Dehydrogenase Total Creatine Kinase CK-MB (CK-2) Rel Index Troponin T C-Reactive Protein Total Protein Albumin Prealbumin LDL Cholesterol Direct HDL Cholesterol Arterial Blood Glucose Arterial Blood Ionized Calcium Urine WBC (Auto) 05/08/20 05/08/20 05/08/20 05:20 11:57 23:42 WBC RBC Hgb Hct MCV MCH RDW Plt Count Lymph % (Auto) [place] % (Auto) Eos % (Auto) Lymph # (Auto) [place] # (Auto) Eos # (Auto) Seg Neutrophils % Seg Neuts % (Manual) Lymphocytes % (Manual) Monocytes % (Manual) Basophils % (Manual) Seg Neutrophils # Seg Neutrophils # Man Lymphocytes # (Manual) Monocytes # (Manual) Eosinophils # (Manual) Basophils # (Manual) PT INR D-Dimer ABG pH POC ABG pCO2 POC ABG pO2 ABG pO2 ABG HCO3 ABG O2 Saturation ABG Base Excess ABG Hemoglobin ABG Oxyhemoglobin ABG Potassium ABG Glucose Oxyhemoglobin Carboxyhemoglobin Sodium Potassium Chloride Carbon Dioxide BUN Creatinine Glucose POC Glucose 121 H 113 H 135 H Calcium Ferritin Total Bilirubin Alkaline Phosphatase Lactate Dehydrogenase Total Creatine Kinase CK-MB (CK-2) Rel Index Troponin T C-Reactive Protein Total Protein Albumin Prealbumin LDL Cholesterol Direct HDL Cholesterol Arterial Blood Glucose Arterial Blood Ionized Calcium Urine WBC (Auto) 05/09/20 05/09/20 05/09/20 05:31 11:11 16:06 WBC RBC Hgb Hct MCV MCH RDW Plt Count Lymph % (Auto) [place] % (Auto) Eos % (Auto) Lymph # (Auto) [place] # (Auto) Eos # (Auto) Seg Neutrophils % Seg Neuts % (Manual) Lymphocytes % (Manual) Monocytes % (Manual) Basophils % (Manual) Seg Neutrophils # Seg Neutrophils # Man Lymphocytes # (Manual) Monocytes # (Manual) Eosinophils # (Manual) Basophils # (Manual) PT INR D-Dimer ABG pH POC ABG pCO2 POC ABG pO2 ABG pO2 ABG HCO3 ABG O2 Saturation ABG Base Excess ABG Hemoglobin ABG Oxyhemoglobin ABG Potassium ABG Glucose Oxyhemoglobin Carboxyhemoglobin Sodium 136 L Potassium Chloride 97.0 L Carbon Dioxide 34 H BUN Creatinine < 0.2 L Glucose 107 H POC Glucose 66 L 127 H Calcium Ferritin Total Bilirubin Alkaline Phosphatase Lactate Dehydrogenase Total Creatine Kinase CK-MB (CK-2) Rel Index Troponin T C-Reactive Protein Total Protein Albumin Prealbumin LDL Cholesterol Direct HDL Cholesterol Arterial Blood Glucose Arterial Blood Ionized Calcium Urine WBC (Auto) 05/09/20 05/10/20 05/10/20 23:19 04:59 11:28 WBC RBC Hgb Hct MCV MCH RDW Plt Count Lymph % (Auto) [place] % (Auto) Eos % (Auto) Lymph # (Auto) [place] # (Auto) Eos # (Auto) Seg Neutrophils % Seg Neuts % (Manual) Lymphocytes % (Manual) Monocytes % (Manual) Basophils % (Manual) Seg Neutrophils # Seg Neutrophils # Man Lymphocytes # (Manual) Monocytes # (Manual) Eosinophils # (Manual) Basophils # (Manual) PT INR D-Dimer ABG pH POC ABG pCO2 POC ABG pO2 ABG pO2 ABG HCO3 ABG O2 Saturation ABG Base Excess ABG Hemoglobin ABG Oxyhemoglobin ABG Potassium ABG Glucose Oxyhemoglobin Carboxyhemoglobin Sodium Potassium Chloride Carbon Dioxide BUN Creatinine Glucose POC Glucose 108 H 126 H 124 H Calcium Ferritin Total Bilirubin Alkaline Phosphatase Lactate Dehydrogenase Total Creatine Kinase CK-MB (CK-2) Rel Index Troponin T C-Reactive Protein Total Protein Albumin Prealbumin LDL Cholesterol Direct HDL Cholesterol Arterial Blood Glucose Arterial Blood Ionized Calcium Urine WBC (Auto) 05/10/20 05/11/20 05/11/20 23:56 06:13 11:44 WBC RBC Hgb Hct MCV MCH RDW Plt Count Lymph % (Auto) [place] % (Auto) Eos % (Auto) Lymph # (Auto) [place] # (Auto) Eos # (Auto) Seg Neutrophils % Seg Neuts % (Manual) Lymphocytes % (Manual) Monocytes % (Manual) Basophils % (Manual) Seg Neutrophils # Seg Neutrophils # Man Lymphocytes # (Manual) Monocytes # (Manual) Eosinophils # (Manual) Basophils # (Manual) PT INR D-Dimer ABG pH POC ABG pCO2 POC ABG pO2 ABG pO2 ABG HCO3 ABG O2 Saturation ABG Base Excess ABG Hemoglobin ABG Oxyhemoglobin ABG Potassium ABG Glucose Oxyhemoglobin Carboxyhemoglobin Sodium Potassium Chloride Carbon Dioxide BUN Creatinine Glucose POC Glucose 113 H 124 H 125 H Calcium Ferritin Total Bilirubin Alkaline Phosphatase Lactate Dehydrogenase Total Creatine Kinase CK-MB (CK-2) Rel Index Troponin T C-Reactive Protein Total Protein Albumin Prealbumin LDL Cholesterol Direct HDL Cholesterol Arterial Blood Glucose Arterial Blood Ionized Calcium Urine WBC (Auto) 05/12/20 05/12/20 05/12/20 06:04 12:17 17:23 WBC RBC Hgb Hct MCV MCH RDW Plt Count Lymph % (Auto) [place] % (Auto) Eos % (Auto) Lymph # (Auto) [place] # (Auto) Eos # (Auto) Seg Neutrophils % Seg Neuts % (Manual) Lymphocytes % (Manual) Monocytes % (Manual) Basophils % (Manual) Seg Neutrophils # Seg Neutrophils # Man Lymphocytes # (Manual) Monocytes # (Manual) Eosinophils # (Manual) Basophils # (Manual) PT INR D-Dimer ABG pH POC ABG pCO2 POC ABG pO2 ABG pO2 ABG HCO3 ABG O2 Saturation ABG Base Excess ABG Hemoglobin ABG Oxyhemoglobin ABG Potassium ABG Glucose Oxyhemoglobin Carboxyhemoglobin Sodium Potassium Chloride Carbon Dioxide BUN Creatinine Glucose POC Glucose 135 H 136 H 133 H Calcium Ferritin Total Bilirubin Alkaline Phosphatase Lactate Dehydrogenase Total Creatine Kinase CK-MB (CK-2) Rel Index Troponin T C-Reactive Protein Total Protein Albumin Prealbumin LDL Cholesterol Direct HDL Cholesterol Arterial Blood Glucose Arterial Blood Ionized Calcium Urine WBC (Auto) 05/12/20 05/13/20 05/13/20 23:34 05:36 11:25 WBC RBC Hgb Hct MCV MCH RDW Plt Count Lymph % (Auto) [place] % (Auto) Eos % (Auto) Lymph # (Auto) [place] # (Auto) Eos # (Auto) Seg Neutrophils % Seg Neuts % (Manual) Lymphocytes % (Manual) Monocytes % (Manual) Basophils % (Manual) Seg Neutrophils # Seg Neutrophils # Man Lymphocytes # (Manual) Monocytes # (Manual) Eosinophils # (Manual) Basophils # (Manual) PT INR D-Dimer ABG pH POC ABG pCO2 POC ABG pO2 ABG pO2 ABG HCO3 ABG O2 Saturation ABG Base Excess ABG Hemoglobin ABG Oxyhemoglobin ABG Potassium ABG Glucose Oxyhemoglobin Carboxyhemoglobin Sodium Potassium Chloride Carbon Dioxide BUN Creatinine Glucose POC Glucose 141 H 131 H 148 H Calcium Ferritin Total Bilirubin Alkaline Phosphatase Lactate Dehydrogenase Total Creatine Kinase CK-MB (CK-2) Rel Index Troponin T C-Reactive Protein Total Protein Albumin Prealbumin LDL Cholesterol Direct HDL Cholesterol Arterial Blood Glucose Arterial Blood Ionized Calcium Urine WBC (Auto) 05/13/20 05/14/20 05/14/20 16:40 00:11 05:03 WBC RBC Hgb Hct MCV MCH RDW Plt Count Lymph % (Auto) [place] % (Auto) Eos % (Auto) Lymph # (Auto) [place] # (Auto) Eos # (Auto) Seg Neutrophils % Seg Neuts % (Manual) Lymphocytes % (Manual) Monocytes % (Manual) Basophils % (Manual) Seg Neutrophils # Seg Neutrophils # Man Lymphocytes # (Manual) Monocytes # (Manual) Eosinophils # (Manual) Basophils # (Manual) PT INR D-Dimer ABG pH POC ABG pCO2 POC ABG pO2 ABG pO2 ABG HCO3 ABG O2 Saturation ABG Base Excess ABG Hemoglobin ABG Oxyhemoglobin ABG Potassium ABG Glucose Oxyhemoglobin Carboxyhemoglobin Sodium Potassium Chloride Carbon Dioxide BUN Creatinine Glucose POC Glucose 118 H 128 H 129 H Calcium Ferritin Total Bilirubin Alkaline Phosphatase Lactate Dehydrogenase Total Creatine Kinase CK-MB (CK-2) Rel Index Troponin T C-Reactive Protein Total Protein Albumin Prealbumin LDL Cholesterol Direct HDL Cholesterol Arterial Blood Glucose Arterial Blood Ionized Calcium Urine WBC (Auto) 05/14/20 05/15/20 05/16/20 11:38 23:46 05:20 WBC RBC Hgb Hct MCV MCH RDW Plt Count Lymph % (Auto) [place] % (Auto) Eos % (Auto) Lymph # (Auto) [place] # (Auto) Eos # (Auto) Seg Neutrophils % Seg Neuts % (Manual) Lymphocytes % (Manual) Monocytes % (Manual) Basophils % (Manual) Seg Neutrophils # Seg Neutrophils # Man Lymphocytes # (Manual) Monocytes # (Manual) Eosinophils # (Manual) Basophils # (Manual) PT INR D-Dimer ABG pH POC ABG pCO2 POC ABG pO2 ABG pO2 ABG HCO3 ABG O2 Saturation ABG Base Excess ABG Hemoglobin ABG Oxyhemoglobin ABG Potassium ABG Glucose Oxyhemoglobin Carboxyhemoglobin Sodium Potassium Chloride Carbon Dioxide BUN Creatinine Glucose POC Glucose 134 H 107 H 122 H Calcium Ferritin Total Bilirubin Alkaline Phosphatase Lactate Dehydrogenase Total Creatine Kinase CK-MB (CK-2) Rel Index Troponin T C-Reactive Protein Total Protein Albumin Prealbumin LDL Cholesterol Direct HDL Cholesterol Arterial Blood Glucose Arterial Blood Ionized Calcium Urine WBC (Auto) 05/16/20 05/16/20 05/18/20 11:57 23:51 11:18 WBC RBC Hgb Hct MCV MCH RDW Plt Count Lymph % (Auto) [place] % (Auto) Eos % (Auto) Lymph # (Auto) [place] # (Auto) Eos # (Auto) Seg Neutrophils % Seg Neuts % (Manual) Lymphocytes % (Manual) Monocytes % (Manual) Basophils % (Manual) Seg Neutrophils # Seg Neutrophils # Man Lymphocytes # (Manual) Monocytes # (Manual) Eosinophils # (Manual) Basophils # (Manual) PT INR D-Dimer ABG pH POC ABG pCO2 POC ABG pO2 ABG pO2 ABG HCO3 ABG O2 Saturation ABG Base Excess ABG Hemoglobin ABG Oxyhemoglobin ABG Potassium ABG Glucose Oxyhemoglobin Carboxyhemoglobin Sodium Potassium Chloride Carbon Dioxide BUN Creatinine Glucose POC Glucose 108 H 111 H 115 H Calcium Ferritin Total Bilirubin Alkaline Phosphatase Lactate Dehydrogenase Total Creatine Kinase CK-MB (CK-2) Rel Index Troponin T C-Reactive Protein Total Protein Albumin Prealbumin LDL Cholesterol Direct HDL Cholesterol Arterial Blood Glucose Arterial Blood Ionized Calcium Urine WBC (Auto) 05/18/20 05/18/20 05/19/20 16:18 23:38 05:07 WBC RBC Hgb Hct MCV MCH RDW Plt Count Lymph % (Auto) [place] % (Auto) Eos % (Auto) Lymph # (Auto) [place] # (Auto) Eos # (Auto) Seg Neutrophils % Seg Neuts % (Manual) Lymphocytes % (Manual) Monocytes % (Manual) Basophils % (Manual) Seg Neutrophils # Seg Neutrophils # Man Lymphocytes # (Manual) Monocytes # (Manual) Eosinophils # (Manual) Basophils # (Manual) PT INR D-Dimer ABG pH POC ABG pCO2 POC ABG pO2 ABG pO2 ABG HCO3 ABG O2 Saturation ABG Base Excess ABG Hemoglobin ABG Oxyhemoglobin ABG Potassium ABG Glucose Oxyhemoglobin Carboxyhemoglobin Sodium Potassium Chloride Carbon Dioxide BUN Creatinine Glucose POC Glucose 110 H 128 H 121 H Calcium Ferritin Total Bilirubin Alkaline Phosphatase Lactate Dehydrogenase Total Creatine Kinase CK-MB (CK-2) Rel Index Troponin T C-Reactive Protein Total Protein Albumin Prealbumin LDL Cholesterol Direct HDL Cholesterol Arterial Blood Glucose Arterial Blood Ionized Calcium Urine WBC (Auto) 05/19/20 05/19/20 05/19/20 11:36 16:49 23:17 WBC RBC Hgb Hct MCV MCH RDW Plt Count Lymph % (Auto) [place] % (Auto) Eos % (Auto) Lymph # (Auto) [place] # (Auto) Eos # (Auto) Seg Neutrophils % Seg Neuts % (Manual) Lymphocytes % (Manual) Monocytes % (Manual) Basophils % (Manual) Seg Neutrophils # Seg Neutrophils # Man Lymphocytes # (Manual) Monocytes # (Manual) Eosinophils # (Manual) Basophils # (Manual) PT INR D-Dimer ABG pH POC ABG pCO2 POC ABG pO2 ABG pO2 ABG HCO3 ABG O2 Saturation ABG Base Excess ABG Hemoglobin ABG Oxyhemoglobin ABG Potassium ABG Glucose Oxyhemoglobin Carboxyhemoglobin Sodium Potassium Chloride Carbon Dioxide BUN Creatinine Glucose POC Glucose 120 H 110 H 122 H Calcium Ferritin Total Bilirubin Alkaline Phosphatase Lactate Dehydrogenase Total Creatine Kinase CK-MB (CK-2) Rel Index Troponin T C-Reactive Protein Total Protein Albumin Prealbumin LDL Cholesterol Direct HDL Cholesterol Arterial Blood Glucose Arterial Blood Ionized Calcium Urine WBC (Auto) 05/20/20 05/20/20 05/21/20 05:17 23:55 04:18 WBC RBC Hgb 11.2 L Hct 35.4 L MCV 81 L MCH 25 L RDW 18.2 H Plt Count 458 H Lymph % (Auto) [place] % (Auto) 8.8 H Eos % (Auto) 7.2 H Lymph # (Auto) [place] # (Auto) Eos # (Auto) 0.6 H Seg Neutrophils % Seg Neuts % (Manual) Lymphocytes % (Manual) Monocytes % (Manual) Basophils % (Manual) Seg Neutrophils # Seg Neutrophils # Man Lymphocytes # (Manual) Monocytes # (Manual) Eosinophils # (Manual) Basophils # (Manual) PT INR D-Dimer ABG pH POC ABG pCO2 POC ABG pO2 ABG pO2 ABG HCO3 ABG O2 Saturation ABG Base Excess ABG Hemoglobin ABG Oxyhemoglobin ABG Potassium ABG Glucose Oxyhemoglobin Carboxyhemoglobin Sodium Potassium Chloride Carbon Dioxide BUN Creatinine Glucose POC Glucose 133 H 128 H Calcium Ferritin Total Bilirubin Alkaline Phosphatase Lactate Dehydrogenase Total Creatine Kinase CK-MB (CK-2) Rel Index Troponin T C-Reactive Protein Total Protein Albumin Prealbumin LDL Cholesterol Direct HDL Cholesterol Arterial Blood Glucose Arterial Blood Ionized Calcium Urine WBC (Auto) 05/21/20 05/21/20 05/21/20 04:18 05:02 23:53 WBC RBC Hgb Hct MCV MCH RDW Plt Count Lymph % (Auto) [place] % (Auto) Eos % (Auto) Lymph # (Auto) [place] # (Auto) Eos # (Auto) Seg Neutrophils % Seg Neuts % (Manual) Lymphocytes % (Manual) Monocytes % (Manual) Basophils % (Manual) Seg Neutrophils # Seg Neutrophils # Man Lymphocytes # (Manual) Monocytes # (Manual) Eosinophils # (Manual) Basophils # (Manual) PT INR D-Dimer ABG pH POC ABG pCO2 POC ABG pO2 ABG pO2 ABG HCO3 ABG O2 Saturation ABG Base Excess ABG Hemoglobin ABG Oxyhemoglobin ABG Potassium ABG Glucose Oxyhemoglobin Carboxyhemoglobin Sodium Potassium Chloride 97.2 L Carbon Dioxide 35 H BUN Creatinine < 0.2 L Glucose 128 H POC Glucose 125 H 114 H Calcium Ferritin Total Bilirubin Alkaline Phosphatase Lactate Dehydrogenase Total Creatine Kinase CK-MB (CK-2) Rel Index Troponin T C-Reactive Protein Total Protein Albumin Prealbumin LDL Cholesterol Direct HDL Cholesterol Arterial Blood Glucose Arterial Blood Ionized Calcium Urine WBC (Auto) 05/22/20 05/22/20 05/23/20 05:21 11:35 00:06 WBC RBC Hgb Hct MCV MCH RDW Plt Count Lymph % (Auto) [place] % (Auto) Eos % (Auto) Lymph # (Auto) [place] # (Auto) Eos # (Auto) Seg Neutrophils % Seg Neuts % (Manual) Lymphocytes % (Manual) Monocytes % (Manual) Basophils % (Manual) Seg Neutrophils # Seg Neutrophils # Man Lymphocytes # (Manual) Monocytes # (Manual) Eosinophils # (Manual) Basophils # (Manual) PT INR D-Dimer ABG pH POC ABG pCO2 POC ABG pO2 ABG pO2 ABG HCO3 ABG O2 Saturation ABG Base Excess ABG Hemoglobin ABG Oxyhemoglobin ABG Potassium ABG Glucose Oxyhemoglobin Carboxyhemoglobin Sodium Potassium Chloride Carbon Dioxide BUN Creatinine Glucose POC Glucose 127 H 114 H 115 H Calcium Ferritin Total Bilirubin Alkaline Phosphatase Lactate Dehydrogenase Total Creatine Kinase CK-MB (CK-2) Rel Index Troponin T C-Reactive Protein Total Protein Albumin Prealbumin LDL Cholesterol Direct HDL Cholesterol Arterial Blood Glucose Arterial Blood Ionized Calcium Urine WBC (Auto) 05/23/20 05/23/20 05/23/20 05:44 12:07 17:59 WBC RBC Hgb Hct MCV MCH RDW Plt Count Lymph % (Auto) [place] % (Auto) Eos % (Auto) Lymph # (Auto) [place] # (Auto) Eos # (Auto) Seg Neutrophils % Seg Neuts % (Manual) Lymphocytes % (Manual) Monocytes % (Manual) Basophils % (Manual) Seg Neutrophils # Seg Neutrophils # Man Lymphocytes # (Manual) Monocytes # (Manual) Eosinophils # (Manual) Basophils # (Manual) PT INR D-Dimer ABG pH POC ABG pCO2 POC ABG pO2 ABG pO2 ABG HCO3 ABG O2 Saturation ABG Base Excess ABG Hemoglobin ABG Oxyhemoglobin ABG Potassium ABG Glucose Oxyhemoglobin Carboxyhemoglobin Sodium Potassium Chloride Carbon Dioxide BUN Creatinine Glucose POC Glucose 110 H 128 H 125 H Calcium Ferritin Total Bilirubin Alkaline Phosphatase Lactate Dehydrogenase Total Creatine Kinase CK-MB (CK-2) Rel Index Troponin T C-Reactive Protein Total Protein Albumin Prealbumin LDL Cholesterol Direct HDL Cholesterol Arterial Blood Glucose Arterial Blood Ionized Calcium Urine WBC (Auto) 05/24/20 05/24/20 05/25/20 05:09 23:05 05:33 WBC RBC Hgb Hct MCV MCH RDW Plt Count Lymph % (Auto) [place] % (Auto) Eos % (Auto) Lymph # (Auto) [place] # (Auto) Eos # (Auto) Seg Neutrophils % Seg Neuts % (Manual) Lymphocytes % (Manual) Monocytes % (Manual) Basophils % (Manual) Seg Neutrophils # Seg Neutrophils # Man Lymphocytes # (Manual) Monocytes # (Manual) Eosinophils # (Manual) Basophils # (Manual) PT INR D-Dimer ABG pH POC ABG pCO2 POC ABG pO2 ABG pO2 ABG HCO3 ABG O2 Saturation ABG Base Excess ABG Hemoglobin ABG Oxyhemoglobin ABG Potassium ABG Glucose Oxyhemoglobin Carboxyhemoglobin Sodium Potassium Chloride Carbon Dioxide BUN Creatinine Glucose POC Glucose 115 H 113 H 118 H Calcium Ferritin Total Bilirubin Alkaline Phosphatase Lactate Dehydrogenase Total Creatine Kinase CK-MB (CK-2) Rel Index Troponin T C-Reactive Protein Total Protein Albumin Prealbumin LDL Cholesterol Direct HDL Cholesterol Arterial Blood Glucose Arterial Blood Ionized Calcium Urine WBC (Auto) 05/26/20 05/26/20 05/26/20 05:28 05:28 06:12 WBC 11.7 H RBC Hgb 10.4 L Hct 32.8 L MCV 79 L MCH 25 L RDW 18.2 H Plt Count Lymph % (Auto) [place] % (Auto) 7.5 H Eos % (Auto) Lymph # (Auto) [place] # (Auto) 0.9 H Eos # (Auto) Seg Neutrophils % 74.9 H Seg Neuts % (Manual) Lymphocytes % (Manual) Monocytes % (Manual) Basophils % (Manual) Seg Neutrophils # 8.8 H Seg Neutrophils # Man Lymphocytes # (Manual) Monocytes # (Manual) Eosinophils # (Manual) Basophils # (Manual) PT INR D-Dimer ABG pH POC ABG pCO2 POC ABG pO2 ABG pO2 ABG HCO3 ABG O2 Saturation ABG Base Excess ABG Hemoglobin ABG Oxyhemoglobin ABG Potassium ABG Glucose Oxyhemoglobin Carboxyhemoglobin Sodium Potassium Chloride 95.0 L Carbon Dioxide 39 H BUN Creatinine < 0.2 L Glucose 111 H POC Glucose 107 H Calcium Ferritin Total Bilirubin Alkaline Phosphatase Lactate Dehydrogenase Total Creatine Kinase CK-MB (CK-2) Rel Index Troponin T C-Reactive Protein Total Protein Albumin Prealbumin LDL Cholesterol Direct HDL Cholesterol Arterial Blood Glucose Arterial Blood Ionized Calcium Urine WBC (Auto) 05/26/20 05/27/20 05/27/20 12:00 01:08 05:32 WBC RBC Hgb Hct MCV MCH RDW Plt Count Lymph % (Auto) [place] % (Auto) Eos % (Auto) Lymph # (Auto) [place] # (Auto) Eos # (Auto) Seg Neutrophils % Seg Neuts % (Manual) Lymphocytes % (Manual) Monocytes % (Manual) Basophils % (Manual) Seg Neutrophils # Seg Neutrophils # Man Lymphocytes # (Manual) Monocytes # (Manual) Eosinophils # (Manual) Basophils # (Manual) PT INR D-Dimer ABG pH POC ABG pCO2 POC ABG pO2 ABG pO2 ABG HCO3 ABG O2 Saturation ABG Base Excess ABG Hemoglobin ABG Oxyhemoglobin ABG Potassium ABG Glucose Oxyhemoglobin Carboxyhemoglobin Sodium Potassium Chloride Carbon Dioxide BUN Creatinine Glucose POC Glucose 135 H 121 H 127 H Calcium Ferritin Total Bilirubin Alkaline Phosphatase Lactate Dehydrogenase Total Creatine Kinase CK-MB (CK-2) Rel Index Troponin T C-Reactive Protein Total Protein Albumin Prealbumin LDL Cholesterol Direct HDL Cholesterol Arterial Blood Glucose Arterial Blood Ionized Calcium Urine WBC (Auto) Allied health notes reviewed: RT
--- NOTE | 2020-05-27 13:10 | Progress Note ---
Assessment and Plan cute hypoxic hypercapnic respiratory failure; Intubated on mechanical ventilation. Etiology secondary to sepsis, ALS, multifocal pneumonia (Covid negative). S/p trach placement 03/07/20 no new changes this time awaiting placement. Discharge home on Friday. --Status post cardiac arrest on 02/25, cardiac hernandez now stable --Dysphagia, status post PEG placement for tube feeding Tolerating PEG tube feedings well. --ALS; Chronic Continue to provide supportive care --Elevated D-dimers; CTA chest, lower extremity venous Doppler both are negative Lovenox for DVT prophylaxis --Bilateral pneumonia; probably community-acquired Completed treatment ID recommendations appreciated --Sepsis secondary to pneumonia s/p empiric antibiotic --Elevated troponin; Serial cardiac enzymes, serial EKGs Echocardiogram, cardiology consult if needed --Hypernatremia Trend sodium Free water via feeding tube --Abdominal distention due to bladder outlet obstruction, resolved CT abdomen showed bladder outlet obstruction, urology consulted s/p drake placement by urology on 03/09 --Hypotension possibly from septic shock and bladder outlet obstruction improved following placing drake --Hypernatremia due to hypovolumia, resolved free water with TF --Constipation; resolved. 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 Patient was on a trilogy machine for breathing 18/11. EMS arrived, patient had O 2 sats in the 80s. EMS attempted to place patient on their CPAP machine, however patient did not tolerate. Patient was admitted to the ICU with diagnosis of acute hypoxic respiratory failure and placed on BiPAP. Patient initially tolerated but later deteriorated with respiratory status. CTA chest showed no PE but significant for bilateral pneumonia. Doppler ultrasound also negative for DVT. COVID-19 test ordered and negative. Due to persistent hypoxia and asystolic/V. fib cardiac arrest, patient was intubated on 02/26/2020 at 1500. Patient now on mechanical ventilation in the ICU s/p trach placement and now unable to wean off from the mechanical ventilation. Patient now status post PEG placement for tube feeding. Patient most likely need long-term placement -LTAC versus SNF Daily Progress 02/25/2020. CTA of the chest reveals no PE but does illustrate the bilateral pneumonia. Doppler ultrasound also negative for DVT. Blood cultures are pending. Await COVID-19 testing. Patient currently requiring BiPAP IPAP 24/EPAP 6 with FiO2 of 25%. Continue O2 and BiPAP as clinically indicated. ID and pulmonary consulted. 02/26/2020. Blood cultures are negative x48 hours and Covid testing negative as well. Continue antibiotics per ID recommendations for community-acquired b ilateral pneumonia. Cardiology consultation for elevated troponin. Check echocardiogram. 02/27/2020. Events of yesterday noted with asystole following V. fib arrest. Patient currently on AC mode rate 20, tidal volume 400, FiO2 50% and a PEEP of 6. Follow-up echocardiogram for elevated troponin. Cardiology suspects NSTEMI Type 2 in the setting of acute resp failure. Chest CTA and BLE Dopplers neg. we will discontinue Decadron given the Covid PCR is negative. 02/28/2020. I spoke with the sister Felisa Eli who is the power of defense attorney regarding advanced directives and she instructed me that she would like to continue with aggressive care at this time. I informed her of the guarded progn osis and high mortality/morbidity and she voiced understanding. Patient currently with AC mode ventilation rate 18, tidal volume 400, FiO2 40% and a PEEP of 6. Continue antibiotics for pneumonia. ID previously consulted. Also consult neurology with regards to ALS. 02/29/2020; patient is intubated and on CPAP patient is alert and oriented. Patient has ALS. Dr. Álvarez spoke with his sister and she wants aggressive care. Continue antibiotics for pneumonia. Neurology consulted for ALS. P rognosis poor 03/01/2020; patient is intubated and on CPAP, patient is alert and oriented. I spoke with his 2 sisters about the management plan. 03/02/2020; patient is intubated and on CPAP. Patient was alert and oriented. I spoke with Dr. mohr and he thinks patient may need mechanical amita tilation, likely his disease progressed. Dr. Flowers did debridement this morning. 03/03/2020; patient is intubated and on CPAP, patient was on trilogy and BiPAP at home. Patient has ALS. on spontaneous breathing trial. Patient is alert and oriented but quadriplegic. Patient has severe bilateral pneumonia and is on cefepime and Vanco, ID is following. Patient has sacral decubitus ulcer and d ebridement was done by Dr. Flowers and there is no osteomyelitis. 03/05. Patient still on broad-spectrum antibiotics. Status post sacral decubitus ulcer debridements-no osteomyelitis. Patient is on AC 25/400/30% PEEP 5. No blood gas results today. 03/06. Plan for tracheostomy by surgery. Still remains intubated. Labs reviewed-sodium 150. Started on free water 200 every 8hr. trend sodium. 03/07: s/p trach placement today, patient placed back on mechanical ventilation with trach. Plan to resume tube feeding with NG tube. Continue to monitor vitals, monitor BMP. 03/08: Patient noted to have distended abdomen with low urinary output. Obtain bladder scan rule out urine retention, UA and urine culture, continue to follow clinically. 03/09: Patient noted to have low blood pressure with SBP as low as 70s. Ordered for 500 mils normal saline bolus. CT abdomen showed bladder outlet obstruction, urology consulted. 03/10: placed on drake by urology o/n, improved urine outpt. cont to monitor BMP. resuded TF - cont free water with TF. wean off from vent as tolerated. 03/11: Vitals stable. cont TF, wean off from vent as tolerated. start on 1/2 NS for hypernatremia - follow BMP 03/12: wean off vent as tolerated, plan for speech eval, cont Tf for now, cont iv fluid 03/13: unable to wean off from vent, unable to do speech therapy eval. will need PEG tube, cont supportive care for now, cont NG tube feeding 03/14: consulted GI for PEg placemnet, cont supportive care. remains on vent at night 03/15: Discussed with GI, plan for PEG tube placement possibly tomorrow. Con tinue supportive care and wean off from vent as tolerated. Hold Lovenox dose tonight. 03/16: family didnot consent for PEG placement yesterday. I spoke with the daughter today and she is now agreeable for PEG tube. I explained the necessity of the procedure with RN to the patient also and he nodded started on tube feeding, for the procedure. will cont supportive care. planned for PEG tube placement tomorrow. 03/17: s/p PEG placement today, patient tolerated well, cont supportive care 03/18: Started on tube feeding with new PEG tube, continue to wean off vent as tolerated 03/19: cont to monitor with supportive care, wean off vent as tolerated 03/20: Continue to wean off vent as tolerated -but failing weaning trial. Still requiring vent support at night. Currently on PEG tube for tube feed. 03/21. Pt with PSV trials with FiO@ 30%, PEEP 6, PS 10. Currently on PEG tube for tube feed. 03/22/2020. Continue PSV trials per pulmonary. Continue bronchodilators. Patient tolerating tube feedings. Continue Robinul for secretion control. 03/23/2020. Continue PSV trials per pulmonary. Continue bronchodilators. Continue Scopolamine and Robinul for secretion control. Trach care/airway management. Mobility protocols for pressure ulcer prophylaxis. LTAC evaluation per case management 03/24/2020. Continue PSV trials with current settings pressure support 10, PEEP 6 and FiO2 30%. Continue bronchodilators/nebulizer. Continue Scopolamine and Robinul for secretion control. Trach care/airway management. Mobility protocols for pressure ulcer prophylaxis. LTAC evaluation per case management 03/25/2020. Pulmonary to proceed with T-piece trials today. Continue bron chodilators/nebulizer. Continue Scopolamine and Robinul for secretion control. Trach care/airway management. Mobility protocols for pressure ulcer prophylaxis. 03/26/2020. Patient currently with PSV 10/6 at FiO2 of 30%. Continue weaning and T-piece trials per protocol. Continue bronchodilators/nebulizer. Continue Scopolamine and Robinul for secretion control. Trach care/airway management. Mobility protocols for pressure ulcer prophylaxis. Continue tube feeding with aspiration precautions. 03/27/2020. Patient currently with PSV 10/6 at FiO2 of 30%. Continue weaning and T-piece trials per protocol. Continue bronchodilators/nebulizer. Continue Scopolamine and Robinul for secretion control. Trach care/airway management. Mobility protocols for pressure ulcer prophylaxis. Continue tube feeding with aspiration precautions. 03/28. Had temp 100.7F. He has been off antibiotics. Will send blood culture, ua, urine culture and chest xray. Had chest pain overnight and trop was elevated as well. Cardiology to evaluate 03/29. Has back pain due to position. He mentions his chest pain is positional. Has no other complaints. Still on mechanical ventilation 03/30. No chest pain today. Labs reviewed. Discussed chest pain with cardiology and team advised no further work up at this time. Can follow up with cardiology in the office after hospitalization 03/31. Lidocaine patch for lower back pain. 04/01. Discharge planning underway. CM notes reviewed. Discussed with daughter 04/02. CM trying to arrange discharge. Continue PSV trials. Discussed with patients significant other 04/04/2020; CM is working for discharge arrangement. Continue PSV trials. 04/05/2020; patient was seen and evaluated this morning and no change from baseline. Continue with PSV trials. Follow with audio visual manager for discharge planning. 04/06/2020;patient was seen and evaluated this morning and no change from baseline. Continue with PSV trials. Follow with audio visual manager for discharge planning. 04/07/2020; patient was seen and evaluated this morning and no change from baseline. Continue with PSV trials. Follow with audio visual manager for discharge planning. 04/08/2020; patient is vent dependent. Discharge is per audio visual manager. 04/09/2020 patient is vent dependent, possible LTAC placement 04/10/2020; tracheostomy on vent, vent dependent pending LTAC placement 04/11/2020; clinically no change, tracheostomy on ventilatory support, wean as tolerated, awaiting placement 04/12/2020; remains on ventilatory support, unable to wean, patient wants to see a speech therapist for sound box However we cannot try that as long as he is on ventilatory support, once he is weaned off vent We will consult speech therapist, plan of care reviewed with the patient and his nurse 04/14/2020; clinically no change, on ventilatory support, complains of constipation, milk of magnesia Closely monitor the patient and adjust the management as needed 04/15/2020; patient has some oral thrush on the tongue, will give Magic mouthwash/nystatin swish and spit Wean off vent as tolerated 04/16 patient is alert and oriented, unable to comprehend what he is trying to tell but appears to complain of some pain, no acute events overnight, all interdisciplinary notes reviewed. Waiting for LTAC versus [facility] facility placement 04/17/2020. Continue supportive care with mechanical ventilation. Patient currently on AC mode rate 10, tidal volume 400 FiO2 30% with a PEEP of 6. Discharge planning per case management. 04/18/2020. Patient remains on mechanical ventilation AC mode rate 10, tidal volume 400, FiO2 30% and PEEP of 6. Continue spontaneous breathing trials as tolerated. Previously, patient was considered for discharge home with skilled staff providing care for 12 hours 7 days/week. Continue discussed with case management discharge planning. 04/19/20. Patient remains on mechanical ventilation AC mode rate 10, tidal volume 400, FiO2 30% and PEEP of 6. Continue spontaneous breathing trials as tolerated. 04/20/2020. Patient remains on mechanical ventilation AC mode rate 10, tidal volume 400, FiO2 30% and PEEP of 6. Continue spontaneous breathing trials as tolerated. 04/21/2020. Patient remains on mechanical ventilation AC mode rate 10, tidal volume 400, FiO2 30% and PEEP of 6. Continue tracheostomy care, secretion control and airway management. Continue spontaneous breathing trials as tolerated. 04/22/2020. Patient remains on mechanical ventilation AC mode rate 10, tidal volume 400, FiO2 30% and PEEP of 6. Continue tracheostomy care, secretion control and airway management. Continue spontaneous breathing trials as tolerated. 04/23/2020. Patient on mechanical ventilation AC mode rate 18, tidal volume 450, FiO2 30% and PEEP of 6. Continue tracheostomy care, secretion control and airway management. Continue spontaneous breathing trials as tolerated. Continue Robinul and scopolamine for secretions. Continue baclofen. 04/24/2020. Patient remains on AC mode ventilation rate 10, tidal volume 400, FiO2 30% and PEEP of 6. Continue tracheostomy care, secretion control and airway management. Continue spontaneous breathing trials as tolerated. Continue Robinul and scopolamine for secretions. Continue baclofen. Continue Xanax for anxiety and Ambien for sleep. Await case management follow-up with regards to discharge planning. 04/25/2020. Patient remains on AC mode ventilation rate 10, tidal volume 400, FiO2 30% and PEEP of 6. Continue tracheostomy care, secretion control and airway management. Continue spontaneous breathing trials as tolerated. Continue Robinul and scopolamine for secretions. Continue baclofen. Continue Xanax for anxiety and Ambien for sleep. Await case management follow-up with regards to discharge planning. 04/26. Patient remains on AC mode ventilation rate 10, tidal volume 400, FiO2 30% and PEEP of 6. Continue tracheostomy care, secretion control and airway management. Continue spontaneous breathing trials as tolerated. Continue Robinul and scopolamine for secretions. Continue baclofen. Continue Xanax for anxiety and Ambien for sleep. Await case management follow-up with regards to discharge planning. 04/27. Patient remains on AC mode ventilation rate 10, tidal volume 400, FiO2 30% and PEEP of 6. Continue tracheostomy care, secretion control and airway management. Continue spontaneous breathing trials as tolerated. Continue Robinul and scopolamine for secretions. Continue baclofen. Continue Xanax for anxiety and Ambien for sleep. Await case management follow-up with regards to discharge planning. 04/28/20 no acute events overnight, remains vent dependent, cardiology and pulmo nary notes reviewed 04/29 remains intubated via tracheostomy, no acute events 04/30 no acute events overnight, cardiology note reviewed, remains vent dependent, discharge planning per case management 05/01 stable. cardiology and pulmonary notes reviewed. D/C acu-checks 05/02 - todate: Clinically stable, remains on vent with trach tube. CM working on placement. Continue supportive care. plan possibly to d/c home with HH, patient refusing SNF placement 05/26; patient remains on vent trach. Patient able to make needs known stated he wanted to go home. Plan is for patient to go home on Friday. Currently bringing the ventilation system that patient will have at home. Patient denies any pain. Able to make needs known with mild and. Remains trach PEG. 05/27: Patient new vent management system at bedside. Plan for patient to go home on Friday. No new concerns. Family to be educated on vent management. Objective - Constitutional Vitals: Vital Signs - 12hr 05/27/20 05/27/20 05/27/20 02:00 03:00 04:00 Temperature 99.5 F Pulse Rate 96 H 92 H 94 H Respiratory 22 18 20 Rate Blood Pressure 150/102 122/89 118/74 O2 Sat by Pulse 100 100 100 Oximetry O2 Sat by Pulse Oximetry [ Assessment] 05/27/20 05/27/20 05/27/20 04:27 05:00 06:00 Temperature Pulse Rate 110 H 101 H 97 H Respiratory 20 24 Rate Blood Pressure 118/74 118/74 153/98 O2 Sat by Pulse 96 100 99 Oximetry O2 Sat by Pulse 96 Oximetry [ Assessment] 05/27/20 05/27/20 05/27/20 07:00 08:00 08:56 Temperature 98.1 F Pulse Rate 96 H 98 H 103 H Respiratory 24 25 H Rate Blood Pressure 148/100 177/99 166/112 O2 Sat by Pulse 100 99 98 Oximetry O2 Sat by Pulse 98 Oximetry [ Assessment] 05/27/20 05/27/20 05/27/20 09:00 09:08 10:00 Temperature Pulse Rate 96 H 94 H 104 H Respiratory 24 30 H Rate Blood Pressure 175/107 175/107 145/104 O2 Sat by Pulse 100 93 Oximetry O2 Sat by Pulse Oximetry [ Assessment] 05/27/20 05/27/20 05/27/20 10:35 11:00 11:28 Temperature Pulse Rate 113 H 105 H Respiratory 21 Rate Blood Pressure 137/94 137/94 O2 Sat by Pulse 95 98 98 Oximetry O2 Sat by Pulse Oximetry [ Assessment] 05/27/20 11:33 Temperature Pulse Rate Respiratory Rate Blood Pressure O2 Sat by Pulse Oximetry O2 Sat by Pulse 98 Oximetry [ Assessment] General appearance: Present: no acute distress, other (Tracheostomy alert no distress.) - EENT Eyes: PERRL, EOM intact - Respiratory Respiratory: bilateral: diminished (Poor inspiratory effort otherwise clear) - Cardiovascular Rhythm: regular Heart Sounds: Present: S1 & S2. Absent: gallop, rub - Gastrointestinal General gastrointestinal: Present: other - Musculoskeletal Musculoskeletal: generalized weakness - Neurologic Neurologic: other (Bedbound.) - Psychiatric Psychiatric: appropriate mood/affect, intact judgment & insight, memory intact - Labs CBC & Chem 7: 05/26/20 05:28 05/26/20 05:28 Labs: Abnormal lab results 05/27/20 05/27/20 Range/Units 01:08 05:32 POC Glucose 121 H 127 H (70-105) mg/dL HEART Score - HEART Score Troponin: Troponin T 0.181 ng/mL (0.00-0.029) H* 04/24/20 05:28
[2020-05-27] MEDS: ZOLPIDEM 5 MG TAB PO PRN (21:32)
[2020-05-27] MEDS: diphenhydrAMINE 25 MG CAP PO PRN (21:33)
[2020-05-27] MEDS: traMADol 50 MG TAB PO PRN (21:33)
[2020-05-28] MEDS: ALPRAZolam 0.5 MG TAB PO PRN ×3 (01:58→18:39)
[2020-05-28] MEDS: oxyCODONE /ACETAMINOPHEN 5-325MG TAB PO PRN ×2 (06:53→20:36)
[2020-05-28] MEDS: TAMSULOSIN 0.4 MG CAP PO SCH (09:38)
[2020-05-28] MEDS: ASPIRIN EC 81 MG TAB PO SCH (09:38)
[2020-05-28] MEDS: DOCUSATE SODIUM 100 MG/10 ML ORAL LIQD FEEDTUBE SCH ×2 (09:38→21:51)
[2020-05-28] MEDS: GLYCOPYRROLATE 1 MG TAB PO SCH ×3 (09:38→20:36)
[2020-05-28] MEDS: LIDOCAINE 5% 1 EACH PATCH TD SCH (09:38)
[2020-05-28] MEDS: METOPROLOL TARTRATE 25 MG TAB PO SCH ×2 (09:39→21:51)
[2020-05-28] MEDS: BACLOFEN 10 MG TAB PO SCH ×2 (09:39→21:50)
[2020-05-28] MEDS: LANSOPRAZOLE 30 MG SOLUTAB FEEDTUBE SCH (09:39)
[2020-05-28] MEDS: PREGABALIN 75 MG CAP PO SCH ×2 (09:39→21:51)
--- NOTE | 2020-05-28 13:52 | Progress Note ---
Assessment and Plan cute hypoxic hypercapnic respiratory failure; Intubated on mechanical ventilation. Etiology secondary to sepsis, ALS, multifocal pneumonia (Covid negative). S/p trach placement 03/07/20 no new changes this time awaiting placement. Discharge home on Friday. Family has completed vent education. --Status post cardiac arrest on 02/25, cardiac hernandez now stable --Dysphagia, status post PEG placement for tube feeding Tolerating PEG tube feedings well. --ALS; Chronic Continue to provide supportive care. If stable will follow up with outpatient neurology 2 to 5 weeks. --Elevated D-dimers; CTA chest, lower extremity venous Doppler both are negative Lovenox for DVT prophylaxis --Bilateral pneumonia; probably community-acquired Completed treatment treatment has resolved. ID recommendations appreciated --Sepsis secondary to pneumonia s/p empiric antibiotic --Elevated troponin; Serial cardiac enzymes, serial EKGs Echocardiogram, cardiology consult if needed --Hypernatremia Trend sodium Free water via feeding tube --Abdominal distention due to bladder outlet obstruction, resolved CT abdomen showed bladder outlet obstruction, urology consulted s/p drake placement by urology on 03/09 --Hypotension possibly from septic shock and bladder outlet obstruction improved following placing drake --Hypernatremia due to hypovolumia, resolved free water with TF --Constipation; resolved. Subjective Date of service: 05/28/20 Principal diagnosis: Ac on Ch Hypercapnic & hypoxemic Resp Failure; Severe Sepsis; Jamar PNA; ALS Interval history: 59-year-old male patient with significant past medical history of ALS, presented to ED with worsening shortness of breath since the morning [employer]. Patient was on a trilogy machine for breathing 18/11. EMS arrived, patient had O2 sats in the 80s. EMS attempted to place patient on their CPAP machine, however patient did not tolerate. Patient was admitted to the ICU with diagnosis of acute hypoxic respiratory failure and placed on BiPAP. Patient initially tolerated but later deteriorated with respiratory status. CTA chest showed no PE but significant for bilateral pneumonia. Doppler ultrasound also negative for DVT. COVID-19 test ordered and negative. Due to persistent hypoxia and asystolic/V. fib cardiac arrest, patient was intubated on 02/26/2020 at 1500. Patient now on mechanical ventilation in the ICU s/p trach placement and now unable to wean off from the mechanical ventilation. Patient now status post PEG placement for tube feeding. Patient most likely need long-term [facility] -LTAC versus SNF Daily Progress 02/25/2020. CTA of the chest reveals no PE but does illustrate the bilateral pneumonia. Doppler ultrasound also negative for DVT. Blood cultures are pending. Await COVID-19 testing. Patient currently requiring BiPAP IPAP 24/EPAP 6 with FiO2 of 25%. Continue O2 and BiPAP as clinically indicated. ID and pulmonary consulted. 02/26/2020. Blood cultures are negative x48 hours and Covid testing negative as well. Continue antibiotics per ID recommendations for community-acquired bilateral pneumonia. Cardiology consultation for elevated troponin. Check echocardiogram. 02/27/2020. Events of yesterday noted with asystole following V. fib arrest. P atient currently on AC mode rate 20, tidal volume 400, FiO2 50% and a PEEP of 6. Follow-up echocardiogram for elevated troponin. Cardiology suspects NSTEMI Type 2 in the setting of acute resp failure. Chest CTA and BLE Dopplers neg. we will discontinue Decadron given the Covid PCR is negative. 02/28/2020. I spoke with the sister Felisa Eli who is the power of financial management consultant regarding advanced directives and she instructed me that she would like to continue with aggressive care at this time. I informed her of the guarded prognosis and high mortality/morbidity and she voiced understanding. Patient currently with AC mode ventilation rate 18, tidal volume 400, FiO2 40% and a PEEP of 6. Continue antibiotics for pneumonia. ID previously consulted. Also consult neurology with regards to ALS. 02/29/2020; patient is intubated and on CPAP patient is alert and oriented. Patient has ALS. Dr. Álvarez spoke with his sister and she wants aggressive care. Continue antibiotics for pneumonia. Neurology consulted for ALS. Prognosis poor 03/01/2020; patient is intubated and on CPAP, patient is alert and oriented. I spoke with his 2 sisters about the management plan. 03/02/2020; patient is intubated and on CPAP. Patient was alert and oriented. I spoke with Dr. mohr and he thinks patient may need mechanical ventilation, likely his disease progressed. Dr. Flowers did debridement this morning. 03/03/2020; patient is intubated and on CPAP, patient was on trilogy and BiPAP at home. Patient has ALS. on spontaneous breathing trial. Patient is alert and oriented but quadriplegic. Patient has severe bilateral pneumonia and is on cefepime and Vanco, ID is following. Patient has sacral decubitus ulcer and debridement was done by Dr. Flowers and there is no osteomyelitis. 03/05. Patient still on broad-spectrum antibiotics. Status post sacral decubitus ulcer debridements-no osteomyelitis. Patient is on AC 25/400/30% PEEP 5. No blood gas results today. 03/06. Plan for tracheostomy by surgery. Still remains intubated. Labs reviewed-sodium 150. Started on free water 200 every 8hr. trend sodium. 03/07: s/p trach placement today, patient placed back on mechanical ventilation with trach. Plan to resume tube feeding with NG tube. Continue to monitor vitals, monitor BMP. 03/08: Patient noted to have distended abdomen with low urinary output. Obtain bladder scan rule out urine retention, UA and urine culture, continue to follow clinically. 03/09: Patient noted to have low blood pressure with SBP as low as 70s. Ordered for 500 mils normal saline bolus. CT abdomen showed bladder outlet obstruction, urology consulted. 03/10: placed on drake by urology o/n, improved urine outpt. cont to monitor BMP. resuded TF - cont free water with TF. wean off from vent as tolerated. 03/11: Vitals stable. cont TF, wean off from vent as tolerated. start on 1/2 NS for hypernatremia - follow BMP 03/12: wean off vent as tolerated, plan for speech eval, cont Tf for now, cont iv fluid 03/13: unable to wean off from vent, unable to do speech therapy eval. will need PEG tube, cont supportive care for now, cont NG tube feeding 03/14: consulted GI for PEg placemnet, cont supportive care. remains on vent at night 03/15: Discussed with GI, plan for PEG tube placement possibly tomorrow. Continue supportive care and wean off from vent as tolerated. Hold Lovenox dose tonight. 03/16: family didnot consent for PEG placement yesterday. I spoke with the daughter today and she is now agreeable for PEG tube. I explained the necessity of the procedure with RN to the patient also and he nodded started on tube feeding, for the procedure. will cont supportive care. planned for PEG tube placement tomorrow. 03/17: s/p PEG placement today, patient tolerated well, cont supportive care 03/18: Started on tube feeding with new PEG tube, continue to wean off vent as tolerated 03/19: cont to monitor with supportive care, wean off vent as tolerated 03/20: Continue to wean off vent as tolerated -but failing weaning trial. Still requiring vent support at night. Currently on PEG tube for tube feed. 03/21. Pt with PSV trials with FiO@ 30%, PEEP 6, PS 10. Currently on PEG tube for tube feed. 03/22/2020. Continue PSV trials per pulmonary. Continue bronchodilators. Patient tolerating tube feedings. Continue Robinul for secretion control. 03/23/2020. Continue PSV trials per pulmonary. Continue bronchodilators. Continue Scopolamine and Robinul for secretion control. Trach care/airway management. Mobility protocols for pressure ulcer prophylaxis. LTAC evaluation per case management 03/24/2020. Continue PSV trials with current settings pressure support 10, PEEP 6 and FiO2 30%. Continue bronchodilators/nebulizer. Continue Scopolamine and Robinul for secretion control. Trach care/airway management. Mobility protocols for pressure ulcer prophylaxis. LTAC evaluation per case management 03/25/2020. Pulmonary to proceed with T-piece trials today. Continue bronchodilators/nebulizer. Continue Scopolamine and Robinul for secretion control. Trach care/airway management. Mobility protocols for pressure ulcer prophylaxis. 03/26/2020. Patient currently with PSV 10/6 at FiO2 of 30%. Continue weaning and T-piece trials per protocol. Continue bronchodilators/nebulizer. Continue Scopolamine and Robinul for secretion control. Trach care/airway management. Mobility protocols for pressure ulcer prophylaxis. Continue tube feeding with aspiration precautions. 03/27/2020. Patient currently with PSV 10/6 at FiO2 of 30%. Continue weaning and T-piece trials per protocol. Continue bronchodilators/nebulizer. Continue Scopolamine and Robinul for secretion control. Trach care/airway management. Mobility protocols for pressure ulcer prophylaxis. Continue tube feeding with aspiration precautions. 03/28. Had temp 100.7F. He has been off antibiotics. Will send blood culture, ua, urine culture and chest xray. Had chest pain overnight and trop was elevated as well. Cardiology to evaluate 03/29. Has back pain due to position. He mentions his chest pain is positional. Has no other complaints. Still on mechanical ventilation 03/30. No chest pain today. Labs reviewed. Discussed chest pain with cardiology and team advised no further work up at this time. Can follow up with cardiology in the office after hospitalization 03/31. Lidocaine patch for lower back pain. 04/01. Discharge planning underway. CM notes reviewed. Discussed with daughter 04/02. CM trying to arrange discharge. Continue PSV trials. Discussed with patients significant other 04/04/2020; CM is working for discharge arrangement. Continue PSV trials. 04/05/2020; patient was seen and evaluated this morning and no change from baseline. Continue with PSV trials. Follow with supervisor parachute manufacturing for discharge planning. 04/06/2020;patient was seen and evaluated this morning and no change from baseline. Continue with PSV trials. Follow with supervisor parachute manufacturing for discharge planning. 04/07/2020; patient was seen and evaluated this morning and no change from baseline. Continue with PSV trials. Follow with supervisor parachute manufacturing for discharge planning. 04/08/2020; patient is vent dependent. Discharge is per supervisor parachute manufacturing. 04/09/2020 patient is vent dependent, possible LTAC placement 04/10/2020; tracheostomy on vent, vent dependent pending LTAC placement 04/11/2020; clinically no change, tracheostomy on ventilatory support, wean as tolerated, awaiting placement 04/12/2020; remains on ventilatory support, unable to wean, patient wants to see a speech therapist for sound box However we cannot try that as long as he is on ventilatory support, once he is weaned off vent We will consult speech therapist, plan of care reviewed with the patient and his nurse 04/14/2020; clinically no change, on ventilatory support, complains of constipation, milk of magnesia Closely monitor the patient and adjust the management as needed 04/15/2020; patient has some oral thrush on the tongue, will give Magic mouthwash/nystatin swish and spit Wean off vent as tolerated 04/16 patient is alert and oriented, unable to comprehend what he is trying to tell but appears to complain of some pain, no acute events overnight, all interdisciplinary notes reviewed. Waiting for LTAC versus custodial facility placement 04/17/2020. Continue supportive care with mechanical ventilation. Patient currently on AC mode rate 10, tidal volume 400 FiO2 30% with a PEEP of 6. Discharge planning per case management. 04/18/2020. Patient remains on mechanical ventilation AC mode rate 10, tidal volume 400, FiO2 30% and PEEP of 6. Continue spontaneous breathing trials as tolerated. Previously, patient was considered for discharge home with skilled staff providing care for 12 hours 7 days/week. Continue discussed with case management discharge planning. 04/19/20. Patient remains on mechanical ventilation AC mode rate 10, tidal volume 400, FiO2 30% and PEEP of 6. Continue spontaneous breathing trials as tolerated. 04/20/2020. Patient remains on mechanical ventilation AC mode rate 10, tidal volume 400, FiO2 30% and PEEP of 6. Continue spontaneous breathing trials as tolerated. 04/21/2020. Patient remains on mechanical ventilation AC mode rate 10, tidal volume 400, FiO2 30% and PEEP of 6. Continue tracheostomy care, secretion control and airway management. Continue spontaneous breathing trials as tolerated. 04/22/2020. Patient remains on mechanical ventilation AC mode rate 10, tidal volume 400, FiO2 30% and PEEP of 6. Continue tracheostomy care, secretion control and airway management. Continue spontaneous breathing trials as tolerated. 04/23/2020. Patient on mechanical ventilation AC mode rate 18, tidal volume 450, FiO2 30% and PEEP of 6. Continue tracheostomy care, secretion control and airway management. Continue spontaneous breathing trials as tolerated. Continue Robinul and scopolamine for secretions. Continue baclofen. 04/24/2020. Patient remains on AC mode ventilation rate 10, tidal volume 400, FiO2 30% and PEEP of 6. Continue tracheostomy care, secretion control and airway management. Continue spontaneous breathing trials as tolerated. Continue Robinul and scopolamine for secretions. Continue baclofen. Continue Xanax for anxiety and Ambien for sleep. Await case management follow-up with regards to discharge planning. 04/25/2020. Patient remains on AC mode ventilation rate 10, tidal volume 400, FiO2 30% and PEEP of 6. Continue tracheostomy care, secretion control and airway management. Continue spontaneous breathing trials as tolerated. Continue Robinul and scopolamine for secretions. Continue baclofen. Continue Xanax for anxiety and Ambien for sleep. Await case management follow-up with regards to discharge planning. 04/26. Patient remains on AC mode ventilation rate 10, tidal volume 400, FiO2 30% and PEEP of 6. Continue tracheostomy care, secretion control and airway management. Continue spontaneous breathing trials as tolerated. Continue Robinul and scopolamine for secretions. Continue baclofen. Continue Xanax for anxiety and Ambien for sleep. Await case management follow-up with regards to discharge planning. 04/27. Patient remains on AC mode ventilation rate 10, tidal volume 400, FiO2 30% and PEEP of 6. Continue tracheostomy care, secretion control and airway management. Continue spontaneous breathing trials as tolerated. Continue Robinul and scopolamine for secretions. Continue baclofen. Continue Xanax for anxiety and Ambien for sleep. Await case management follow-up with regards to discharge planning. 04/28/20 no acute events overnight, remains vent dependent, cardiology and pulmonary notes reviewed 04/29 remains intubated via tracheostomy, no acute events 04/30 no acute events overnight, cardiology note reviewed, remains vent dependent, discharge planning per case management 05/01 stable. cardiology and pulmonary notes reviewed. D/C acu-checks 05/02 - todate: Clinically stable, remains on vent with trach tube. CM working on placement. Continue supportive care. plan possibly to d/c home with HH, patient refusing SNF placement 05/26; patient remains on vent trach. Patient able to make needs known stated he wanted to go home. Plan is for patient to go home on Friday. Currently bringing the ventilation system that patient will have at home. Patient denies any pain. Able to make needs known with mild and. Remains trach PEG. 05/27: Patient new vent management system at bedside. Plan for patient to go home on Friday. No new concerns. Family to be educated on vent management. 05/28: No new change in condition. Still states he wants to go home. Tracheostomy and PEG. Family has been educated. Patient scheduled for discharge in a.m. Objective - Constitutional Vitals: Vital Signs - 12hr 05/28/20 05/28/20 05/28/20 02:01 03:00 03:39 Temperature 98.0 F Pulse Rate 104 H 98 H Respiratory 21 12 Rate Blood Pressure 144/105 152/93 O2 Sat by Pulse 97 97 Oximetry O2 Sat by Pulse Oximetry [ Assessment] 05/28/20 05/28/20 05/28/20 03:43 04:00 05:00 Temperature Pulse Rate 96 H 110 H 100 H Respiratory 13 17 Rate Blood Pressure 140/90 157/91 O2 Sat by Pulse 98 99 Oximetry O2 Sat by Pulse Oximetry [ Assessment] 05/28/20 05/28/20 05/28/20 06:00 06:53 07:01 Temperature Pulse Rate 101 H 108 H Respiratory 16 20 18 Rate Blood Pressure 142/83 121/92 O2 Sat by Pulse 97 97 Oximetry O2 Sat by Pulse Oximetry [ Assessment] 05/28/20 05/28/20 05/28/20 07:48 08:00 09:00 Temperature Pulse Rate 87 91 H 97 H Respiratory 17 18 Rate Blood Pressure 119/89 141/88 145/77 O2 Sat by Pulse 97 98 98 Oximetry O2 Sat by Pulse 97 Oximetry [ Assessment] 05/28/20 05/28/20 05/28/20 09:39 10:00 11:00 Temperature Pulse Rate 104 H 102 H 99 H Respiratory 24 19 Rate Blood Pressure 137/87 128/79 135/87 O2 Sat by Pulse 97 98 Oximetry O2 Sat by Pulse Oximetry [ Assessment] 05/28/20 05/28/20 12:00 12:15 Temperature Pulse Rate 103 H 103 H Respiratory 16 Rate Blood Pressure 126/75 126/75 O2 Sat by Pulse 98 98 Oximetry O2 Sat by Pulse Oximetry [ Assessment] General appearance: Present: no acute distress, other (Tray tracheostomy PEG tube no acute distress.) - Respiratory Respiratory: bilateral: CTA - Cardiovascular Rhythm: regular - Gastrointestinal General gastrointestinal: Present: soft, non-tender, non-distended, normal bowel sounds, other (Functioning PEG to no evidence of infection no pain.) - Musculoskeletal Musculoskeletal: other (Chronic changes of ALS. 0 out of 5 strength and power bilateral lower extremities.) - Neurologic Neurologic: other (ALS.) - Labs CBC & Chem 7: 05/26/20 05:28 05/26/20 05:28 Labs: Abnormal lab results 05/27/20 05/27/20 05/27/20 Range/Units 11:53 17:28 23:33 POC Glucose 135 H 118 H 121 H (70-105) mg/dL 05/28/20 05/28/20 Range/Units 05:13 11:45 POC Glucose 116 H 115 H (70-105) mg/dL HEART Score - HEART Score Troponin: Troponin T 0.181 ng/mL (0.00-0.029) H* 04/24/20 05:28
[2020-05-28] MEDS: traMADol 50 MG TAB PO PRN ×2 (15:27→22:01)
--- NOTE | 2020-05-28 18:14 | Progress Note ---
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 Respiratory Failure s/p trach Severe Sepsis with Shock Bilateral Pneumonia (Possible aspiration) History of ALS on Trilogy Oropharyngeal Dysphagia s/p PEG Acute toxic metabolic encephalopathy-resolved Elevated D-dimer Elevated troponin possibly type 2 ischemia Leukocytsois Continue to trend WCC and temperature curve Continue Ambien for sleep at night Continue all supportive care Discharge planning is ongoing- patient will be on home vent for another 12 hours with plan for discharge home tomorrow with home vent - continue daytime PSV as tolerated -He is not tolerating ATP trials and is vent dependant. - ABG, CXR as clinically indicated - continue Robinul & scopolamine for secretion control - Keep K at 4, Mg at 2 and Phos at 2.5 to optimize respiratory muscle function - wound care per RN/WCN, off loading, frequent turning, mobility per facility protocol - wean supplemental oxygen for target O2 sats > 92% - VAP bundle addressed, aspiration precautions, HOB >40 - continue lung protective strategies - continue bronchodilators with pulmonary hygiene per RT - s/p empiric anti-infectives per ID recs (Rocephin and Zithromax) - enteral nutrition at goal rate as tolerated - accuchecks with glycemic control per SSI (While critically ill target blood glucose of 140-180 mg/dL; avoid hypoglycemia) - continue to avoid nephrotoxins, renal dose all medications - continue to avoid benzodiazepines, reduce the possibility of delirium - continue prn analgesia per CPOT score -continue to maintain of sleep-wake cycle -Continue stress ulcer and VTE prophylaxis (Famotidine and Enoxaparin) - continue to monitor hemodynamics closely - continue other care per attending / other consultants CONDITION: FAIR PROGNOSIS: FAIR CODE STATUS: FULL CODE Subjective Date of service: 05/28/20 Principal diagnosis: Ac on Ch Hypercapnic & hypoxemic Resp Failure; Severe Sepsis; Jamar PNA; ALS Interval history: Patient is seen today for: Acute on Chronic Hypercapnic & hypoxemic Respiratory Failure; Severe Sepsis with Shock; Bilateral Pneumonia (Possible aspiration); History of ALS on Trilogy; Acute toxic metabolic encephalopathy Seen and examined at bedside; 24hour events reviewed; nursing and respiratory care staff consulted; no adverse overnight events reported to me; resting in bed; remains on MVS; s/p trach and PEG Tolerating tube feedings. Has been on the home ventilator without adverse events Objective Vital Signs - 12hr 05/28/20 05/28/20 05/28/20 06:53 07:01 07:48 Temperature Pulse Rate 108 H 87 Respiratory 20 18 Rate Blood Pressure 121/92 119/89 O2 Sat by Pulse 97 97 Oximetry O2 Sat by Pulse 97 Oximetry [ Assessment] 05/28/20 05/28/20 05/28/20 08:00 09:00 09:39 Temperature 97.6 F Pulse Rate 91 H 97 H 104 H Respiratory 17 18 Rate Blood Pressure 141/88 145/77 137/87 O2 Sat by Pulse 98 98 Oximetry O2 Sat by Pulse Oximetry [ Assessment] 05/28/20 05/28/20 05/28/20 10:00 11:00 12:00 Temperature 97.7 F Pulse Rate 102 H 99 H 103 H Respiratory 24 19 16 Rate Blood Pressure 128/79 135/87 126/75 O2 Sat by Pulse 97 98 98 Oximetry O2 Sat by Pulse Oximetry [ Assessment] 05/28/20 05/28/20 05/28/20 12:15 13:00 14:00 Temperature Pulse Rate 103 H 92 H 110 H Respiratory 19 19 Rate Blood Pressure 126/75 129/80 124/84 O2 Sat by Pulse 98 97 Oximetry O2 Sat by Pulse Oximetry [ Assessment] 05/28/20 05/28/20 05/28/20 15:00 16:00 17:01 Temperature Pulse Rate 112 H 114 H 109 H Respiratory 19 19 18 Rate Blood Pressure 127/89 124/75 129/79 O2 Sat by Pulse 97 95 96 Oximetry O2 Sat by Pulse Oximetry [ Assessment] Constitutional: appears uncomfortable, other (thin middle aged male with mildly increased respiratory effort at rest on MVS) Eyes: non-icteric ENT: oropharynx moist, other (S/P Tracheostomy) Neck: supple, no lymphadenopathy, no JVD Effort: mildly labored Ascultation: Bilateral: clear, diminished breath sounds (bases), wheezes, rhonchi (scant in bases) Percussion: Bilateral: not dull Cardiovascular: regular rate and rhythm, other (S1,S2, no murmurs) Gastrointestinal: normoactive bowel sounds, soft, non-tender, non-distended Integumentary: normal, decubitus ulcer (sacral / gluteal) Extremities: no cyanosis, no edema, pulses normal, other (atrophic looking limbs) Neurologic: pupils equal and round, other (motor strength in extremities 1-2/5, awake, alert, mouths words to make needs known) Psychiatric: depressed CBC and BMP: 05/26/20 05:28 05/26/20 05:28 ABG, PT/INR, D-dimer: ABG ABG pH 7.371 (7.320-7.450) 03/08/20 12:34 POC ABG pCO2 63.1 mmHg (32.0-48.0) H 03/08/20 12:34 ABG pCO2 60.1 mm Hg 03/06/20 04:34 POC ABG pO2 90.5 mmHg (83-108) 03/08/20 12:34 ABG pO2 88.6 mm Hg (80.0-90.0) 03/06/20 04:34 POC ABG HCO3 35.7 03/08/20 12:34 ABG O2 Saturation 97.0 % (95.0-99.0) 03/06/20 04:34 PT/INR, D-dimer PT 15.6 Sec. (12.2-14.9) H 02/24/20 09:19 INR 1.21 (0.87-1.13) H 02/24/20 09:19 D-Dimer 1311.96 ng/mlDDU (0-234) H 02/24/20 09:19 Abnormal lab findings: Abnormal Labs 02/24/20 02/24/20 02/24/20 09:19 09:19 09:19 WBC 20.2 H RBC 5.05 H Hgb Hct MCV MCH RDW 15.3 H Plt Count Lymph % (Auto) [place] % (Auto) Eos % (Auto) Lymph # (Auto) [place] # (Auto) Eos # (Auto) Seg Neutrophils % Seg Neuts % (Manual) 86.0 H Lymphocytes % (Manual) 1.0 L Monocytes % (Manual) Basophils % (Manual) Seg Neutrophils # Seg Neutrophils # Man 17.4 H Lymphocytes # (Manual) 0.2 L Monocytes # (Manual) Eosinophils # (Manual) Basophils # (Manual) PT 15.6 H INR 1.21 H D-Dimer 1311.96 H ABG pH POC ABG pCO2 POC ABG pO2 ABG pO2 ABG HCO3 ABG O2 Saturation ABG Base Excess ABG Hemoglobin ABG Oxyhemoglobin ABG Potassium ABG Glucose Oxyhemoglobin Carboxyhemoglobin Sodium 135 L Potassium 3.2 L Chloride 92.2 L Carbon Dioxide BUN 6 L Creatinine < 0.2 L Glucose 124 H POC Glucose Calcium Ferritin Total Bilirubin 2.30 H Alkaline Phosphatase 132 H Lactate Dehydrogenase Total Creatine Kinase CK-MB (CK-2) Rel Index Troponin T 0.080 H C-Reactive Protein Total Protein Albumin 3.6 L Prealbumin LDL Cholesterol Direct 41 L HDL Cholesterol Arterial Blood Glucose Arterial Blood Ionized Calcium Urine WBC (Auto) 02/24/20 02/24/20 02/24/20 09:19 09:58 10:01 WBC RBC Hgb Hct MCV MCH RDW Plt Count Lymph % (Auto) [place] % (Auto) Eos % (Auto) Lymph # (Auto) [place] # (Auto) Eos # (Auto) Seg Neutrophils % Seg Neuts % (Manual) Lymphocytes % (Manual) Monocytes % (Manual) Basophils % (Manual) Seg Neutrophils # Seg Neutrophils # Man Lymphocytes # (Manual) Monocytes # (Manual) Eosinophils # (Manual) Basophils # (Manual) PT INR D-Dimer ABG pH 7.176 L* POC ABG pCO2 POC ABG pO2 ABG pO2 91.2 H ABG HCO3 ABG O2 Saturation ABG Base Excess -4.6 L ABG Hemoglobin ABG Oxyhemoglobin ABG Potassium ABG Glucose Oxyhemoglobin 92.6 L Carboxyhemoglobin Sodium Potassium Chloride Carbon Dioxide BUN Creatinine Glucose POC Glucose Calcium Ferritin 1715.0 H Total Bilirubin Alkaline Phosphatase Lactate Dehydrogenase 303 H Total Creatine Kinase CK-MB (CK-2) Rel Index Troponin T C-Reactive Protein 26.10 H Total Protein Albumin Prealbumin LDL Cholesterol Direct HDL Cholesterol Arterial Blood Glucose Arterial Blood Ionized Calcium Urine WBC (Auto) 02/24/20 02/24/20 02/24/20 11:52 13:45 19:35 WBC RBC Hgb Hct MCV MCH RDW Plt Count Lymph % (Auto) [place] % (Auto) Eos % (Auto) Lymph # (Auto) [place] # (Auto) Eos # (Auto) Seg Neutrophils % Seg Neuts % (Manual) Lymphocytes % (Manual) Monocytes % (Manual) Basophils % (Manual) Seg Neutrophils # Seg Neutrophils # Man Lymphocytes # (Manual) Monocytes # (Manual) Eosinophils # (Manual) Basophils # (Manual) PT INR D-Dimer ABG pH 7.051 L* 7.300 L POC ABG pCO2 POC ABG pO2 ABG pO2 94.7 H 75.1 L ABG HCO3 18.0 L ABG O2 Saturation 93.5 L ABG Base Excess -6.8 L -7.8 L ABG Hemoglobin 13.2 L 11.9 L ABG Oxyhemoglobin ABG Potassium ABG Glucose Oxyhemoglobin 91.0 L 92.7 L Carboxyhemoglobin Sodium Potassium Chloride Carbon Dioxide BUN Creatinine Glucose POC Glucose Calcium Ferritin Total Bilirubin Alkaline Phosphatase Lactate Dehydrogenase Total Creatine Kinase CK-MB (CK-2) Rel Index Troponin T 0.034 H D C-Reactive Protein Total Protein Albumin Prealbumin LDL Cholesterol Direct HDL Cholesterol Arterial Blood Glucose Arterial Blood Ionized Calcium Urine WBC (Auto) 02/25/20 02/25/20 02/25/20 04:00 04:00 12:26 WBC 22.9 H RBC Hgb Hct MCV 83 L MCH 27 L RDW Plt Count 468 H Lymph % (Auto) [place] % (Auto) Eos % (Auto) Lymph # (Auto) [place] # (Auto) Eos # (Auto) Seg Neutrophils % Seg Neuts % (Manual) 89.0 H Lymphocytes % (Manual) 7.0 L Monocytes % (Manual) Basophils % (Manual) Seg Neutrophils # Seg Neutrophils # Man 20.4 H Lymphocytes # (Manual) Monocytes # (Manual) Eosinophils # (Manual) Basophils # (Manual) PT INR D-Dimer ABG pH POC ABG pCO2 POC ABG pO2 ABG pO2 ABG HCO3 ABG O2 Saturation ABG Base Excess ABG Hemoglobin ABG Oxyhemoglobin ABG Potassium 2.6 L ABG Glucose 142 H Oxyhemoglobin Carboxyhemoglobin Sodium Potassium 3.2 L Chloride Carbon Dioxide 18 L BUN Creatinine 0.2 L Glucose 114 H POC Glucose Calcium Ferritin Total Bilirubin Alkaline Phosphatase Lactate Dehydrogenase Total Creatine Kinase CK-MB (CK-2) Rel Index Troponin T C-Reactive Protein Total Protein Albumin 3.5 L Prealbumin LDL Cholesterol Direct HDL Cholesterol Arterial Blood Glucose 142 H Arterial Blood Ionized Calcium Urine WBC (Auto) 02/26/20 02/26/20 02/26/20 15:58 17:00 23:43 WBC RBC Hgb Hct MCV MCH RDW Plt Count Lymph % (Auto) [place] % (Auto) Eos % (Auto) Lymph # (Auto) [place] # (Auto) Eos # (Auto) Seg Neutrophils % Seg Neuts % (Manual) Lymphocytes % (Manual) Monocytes % (Manual) Basophils % (Manual) Seg Neutrophils # Seg Neutrophils # Man Lymphocytes # (Manual) Monocytes # (Manual) Eosinophils # (Manual) Basophils # (Manual) PT INR D-Dimer ABG pH 7.502 H POC ABG pCO2 POC ABG pO2 213.6 H ABG pO2 ABG HCO3 ABG O2 Saturation ABG Base Excess ABG Hemoglobin ABG Oxyhemoglobin 99.2 H ABG Potassium 2.9 L ABG Glucose 160 H Oxyhemoglobin Carboxyhemoglobin 0.4 L Sodium Potassium Chloride Carbon Dioxide BUN Creatinine Glucose POC Glucose 189 H 120 H Calcium Ferritin Total Bilirubin Alkaline Phosphatase Lactate Dehydrogenase Total Creatine Kinase CK-MB (CK-2) Rel Index Troponin T C-Reactive Protein Total Protein Albumin Prealbumin LDL Cholesterol Direct HDL Cholesterol Arterial Blood Glucose 160 H Arterial Blood Ionized Calcium 4.5 L Urine WBC (Auto) 02/27/20 02/27/20 02/27/20 05:00 07:04 17:45 WBC RBC Hgb Hct MCV MCH RDW Plt Count Lymph % (Auto) [place] % (Auto) Eos % (Auto) Lymph # (Auto) [place] # (Auto) Eos # (Auto) Seg Neutrophils % Seg Neuts % (Manual) Lymphocytes % (Manual) Monocytes % (Manual) Basophils % (Manual) Seg Neutrophils # Seg Neutrophils # Man Lymphocytes # (Manual) Monocytes # (Manual) Eosinophils # (Manual) Basophils # (Manual) PT INR D-Dimer ABG pH 7.524 H POC ABG pCO2 POC ABG pO2 ABG pO2 ABG HCO3 ABG O2 Saturation ABG Base Excess ABG Hemoglobin ABG Oxyhemoglobin ABG Potassium 3.0 L ABG Glucose 143 H Oxyhemoglobin Carboxyhemoglobin Sodium Potassium Chloride Carbon Dioxide BUN Creatinine Glucose POC Glucose 154 H 175 H Calcium Ferritin Total Bilirubin Alkaline Phosphatase Lactate Dehydrogenase Total Creatine Kinase CK-MB (CK-2) Rel Index Troponin T C-Reactive Protein Total Protein Albumin Prealbumin LDL Cholesterol Direct HDL Cholesterol Arterial Blood Glucose 143 H Arterial Blood Ionized Calcium Urine WBC (Auto) 02/27/20 02/28/20 02/28/20 Unknown 00:21 04:15 WBC 18.7 H RBC Hgb Hct MCV MCH RDW Plt Count Lymph % (Auto) 8.7 L [place] % (Auto) Eos % (Auto) Lymph # (Auto) [place] # (Auto) 1.2 H Eos # (Auto) Seg Neutrophils % 84.6 H Seg Neuts % (Manual) Lymphocytes % (Manual) Monocytes % (Manual) Basophils % (Manual) Seg Neutrophils # 15.9 H Seg Neutrophils # Man Lymphocytes # (Manual) Monocytes # (Manual) Eosinophils # (Manual) Basophils # (Manual) PT INR D-Dimer ABG pH POC ABG pCO2 POC ABG pO2 ABG pO2 ABG HCO3 ABG O2 Saturation ABG Base Excess ABG Hemoglobin ABG Oxyhemoglobin ABG Potassium ABG Glucose Oxyhemoglobin Carboxyhemoglobin Sodium Potassium 2.9 L* Chloride Carbon Dioxide 33 H D BUN Creatinine < 0.2 L Glucose 157 H POC Glucose 134 H Calcium Ferritin Total Bilirubin Alkaline Phosphatase Lactate Dehydrogenase Total Creatine Kinase CK-MB (CK-2) Rel Index Troponin T C-Reactive Protein Total Protein Albumin Prealbumin LDL Cholesterol Direct HDL Cholesterol Arterial Blood Glucose Arterial Blood Ionized Calcium Urine WBC (Auto) 02/28/20 02/28/20 02/28/20 04:15 05:16 05:39 WBC RBC Hgb Hct MCV MCH RDW Plt Count Lymph % (Auto) [place] % (Auto) Eos % (Auto) Lymph # (Auto) [place] # (Auto) Eos # (Auto) Seg Neutrophils % Seg Neuts % (Manual) Lymphocytes % (Manual) Monocytes % (Manual) Basophils % (Manual) Seg Neutrophils # Seg Neutrophils # Man Lymphocytes # (Manual) Monocytes # (Manual) Eosinophils # (Manual) Basophils # (Manual) PT INR D-Dimer ABG pH POC ABG pCO2 POC ABG pO2 ABG pO2 142.9 H ABG HCO3 34.1 H ABG O2 Saturation ABG Base Excess 8.3 H ABG Hemoglobin ABG Oxyhemoglobin ABG Potassium ABG Glucose Oxyhemoglobin Carboxyhemoglobin Sodium 151 H Potassium Chloride Carbon Dioxide 32 H BUN Creatinine 0.2 L Glucose 167 H POC Glucose 138 H Calcium Ferritin Total Bilirubin Alkaline Phosphatase Lactate Dehydrogenase Total Creatine Kinase CK-MB (CK-2) Rel Index Troponin T C-Reactive Protein Total Protein Albumin Prealbumin LDL Cholesterol Direct HDL Cholesterol Arterial Blood Glucose Arterial Blood Ionized Calcium Urine WBC (Auto) 02/28/20 02/28/20 02/28/20 11:05 11:33 12:54 WBC RBC Hgb Hct MCV MCH RDW Plt Count Lymph % (Auto) [place] % (Auto) Eos % (Auto) Lymph # (Auto) [place] # (Auto) Eos # (Auto) Seg Neutrophils % Seg Neuts % (Manual) Lymphocytes % (Manual) Monocytes % (Manual) Basophils % (Manual) Seg Neutrophils # Seg Neutrophils # Man Lymphocytes # (Manual) Monocytes # (Manual) Eosinophils # (Manual) Basophils # (Manual) PT INR D-Dimer ABG pH POC ABG pCO2 POC ABG pO2 ABG pO2 ABG HCO3 ABG O2 Saturation ABG Base Excess ABG Hemoglobin ABG Oxyhemoglobin ABG Potassium ABG Glucose Oxyhemoglobin Carboxyhemoglobin Sodium Potassium Chloride Carbon Dioxide BUN Creatinine Glucose POC Glucose 160 H Calcium Ferritin Total Bilirubin Alkaline Phosphatase Lactate Dehydrogenase Total Creatine Kinase CK-MB (CK-2) Rel Index Troponin T C-Reactive Protein 4.70 H Total Protein Albumin Prealbumin 0.090 L LDL Cholesterol Direct HDL Cholesterol Arterial Blood Glucose Arterial Blood Ionized Calcium Urine WBC (Auto) 02/28/20 02/29/20 02/29/20 17:34 00:44 04:05 WBC 19.6 H RBC Hgb Hct MCV MCH 27 L RDW 15.4 H Plt Count Lymph % (Auto) [place] % (Auto) Eos % (Auto) Lymph # (Auto) [place] # (Auto) Eos # (Auto) Seg Neutrophils % Seg Neuts % (Manual) 86.0 H Lymphocytes % (Manual) 7.0 L Monocytes % (Manual) Basophils % (Manual) Seg Neutrophils # Seg Neutrophils # Man 16.9 H Lymphocytes # (Manual) Monocytes # (Manual) 1.2 H Eosinophils # (Manual) Basophils # (Manual) PT INR D-Dimer ABG pH POC ABG pCO2 POC ABG pO2 ABG pO2 ABG HCO3 ABG O2 Saturation ABG Base Excess ABG Hemoglobin ABG Oxyhemoglobin ABG Potassium ABG Glucose Oxyhemoglobin Carboxyhemoglobin Sodium Potassium Chloride Carbon Dioxide BUN Creatinine Glucose POC Glucose 136 H 156 H Calcium Ferritin Total Bilirubin Alkaline Phosphatase Lactate Dehydrogenase Total Creatine Kinase CK-MB (CK-2) Rel Index Troponin T C-Reactive Protein Total Protein Albumin Prealbumin LDL Cholesterol Direct HDL Cholesterol Arterial Blood Glucose Arterial Blood Ionized Calcium Urine WBC (Auto) 02/29/20 02/29/20 02/29/20 04:05 05:14 05:33 WBC RBC Hgb Hct MCV MCH RDW Plt Count Lymph % (Auto) [place] % (Auto) Eos % (Auto) Lymph # (Auto) [place] # (Auto) Eos # (Auto) Seg Neutrophils % Seg Neuts % (Manual) Lymphocytes % (Manual) Monocytes % (Manual) Basophils % (Manual) Seg Neutrophils # Seg Neutrophils # Man Lymphocytes # (Manual) Monocytes # (Manual) Eosinophils # (Manual) Basophils # (Manual) PT INR D-Dimer ABG pH POC ABG pCO2 54.3 H POC ABG pO2 124.8 H ABG pO2 ABG HCO3 ABG O2 Saturation ABG Base Excess ABG Hemoglobin ABG Oxyhemoglobin ABG Potassium ABG Glucose 185 H Oxyhemoglobin Carboxyhemoglobin Sodium 148 H Potassium Chloride Carbon Dioxide 33 H BUN Creatinine < 0.2 L Glucose 173 H POC Glucose 152 H Calcium Ferritin Total Bilirubin Alkaline Phosphatase Lactate Dehydrogenase Total Creatine Kinase CK-MB (CK-2) Rel Index Troponin T C-Reactive Protein Total Protein Albumin Prealbumin LDL Cholesterol Direct HDL Cholesterol Arterial Blood Glucose 185 H Arterial Blood Ionized Calcium Urine WBC (Auto) 03/01/20 03/01/20 03/01/20 00:00 03:45 04:33 WBC 23.1 H RBC Hgb Hct MCV MCH 27 L RDW 15.3 H Plt Count Lymph % (Auto) [place] % (Auto) Eos % (Auto) Lymph # (Auto) [place] # (Auto) Eos # (Auto) Seg Neutrophils % Seg Neuts % (Manual) 92.0 H Lymphocytes % (Manual) 6.0 L Monocytes % (Manual) Basophils % (Manual) Seg Neutrophils # Seg Neutrophils # Man 21.3 H Lymphocytes # (Manual) Monocytes # (Manual) Eosinophils # (Manual) 0.5 H Basophils # (Manual) PT INR D-Dimer ABG pH 7.492 H POC ABG pCO2 POC ABG pO2 ABG pO2 157.1 H ABG HCO3 32.3 H ABG O2 Saturation ABG Base Excess 8.1 H ABG Hemoglobin 13.2 L ABG Oxyhemoglobin ABG Potassium ABG Glucose Oxyhemoglobin Carboxyhemoglobin Sodium Potassium Chloride Carbon Dioxide BUN Creatinine Glucose POC Glucose 109 H Calcium Ferritin Total Bilirubin Alkaline Phosphatase Lactate Dehydrogenase Total Creatine Kinase CK-MB (CK-2) Rel Index Troponin T C-Reactive Protein Total Protein Albumin Prealbumin LDL Cholesterol Direct HDL Cholesterol Arterial Blood Glucose Arterial Blood Ionized Calcium Urine WBC (Auto) 03/01/20 03/01/20 03/01/20 04:33 05:29 12:32 WBC RBC Hgb Hct MCV MCH RDW Plt Count Lymph % (Auto) [place] % (Auto) Eos % (Auto) Lymph # (Auto) [place] # (Auto) Eos # (Auto) Seg Neutrophils % Seg Neuts % (Manual) Lymphocytes % (Manual) Monocytes % (Manual) Basophils % (Manual) Seg Neutrophils # Seg Neutrophils # Man Lymphocytes # (Manual) Monocytes # (Manual) Eosinophils # (Manual) Basophils # (Manual) PT INR D-Dimer ABG pH POC ABG pCO2 POC ABG pO2 ABG pO2 ABG HCO3 ABG O2 Saturation ABG Base Excess ABG Hemoglobin ABG Oxyhemoglobin ABG Potassium ABG Glucose Oxyhemoglobin Carboxyhemoglobin Sodium 146 H Potassium Chloride Carbon Dioxide 32 H BUN Creatinine < 0.2 L Glucose 120 H POC Glucose 120 H 128 H Calcium Ferritin Total Bilirubin Alkaline Phosphatase Lactate Dehydrogenase Total Creatine Kinase CK-MB (CK-2) Rel Index Troponin T C-Reactive Protein Total Protein Albumin Prealbumin LDL Cholesterol Direct HDL Cholesterol Arterial Blood Glucose Arterial Blood Ionized Calcium Urine WBC (Auto) 03/01/20 03/01/20 03/02/20 17:38 23:46 06:13 WBC RBC Hgb Hct MCV MCH RDW Plt Count Lymph % (Auto) [place] % (Auto) Eos % (Auto) Lymph # (Auto) [place] # (Auto) Eos # (Auto) Seg Neutrophils % Seg Neuts % (Manual) Lymphocytes % (Manual) Monocytes % (Manual) Basophils % (Manual) Seg Neutrophils # Seg Neutrophils # Man Lymphocytes # (Manual) Monocytes # (Manual) Eosinophils # (Manual) Basophils # (Manual) PT INR D-Dimer ABG pH POC ABG pCO2 POC ABG pO2 ABG pO2 ABG HCO3 ABG O2 Saturation ABG Base Excess ABG Hemoglobin ABG Oxyhemoglobin ABG Potassium ABG Glucose Oxyhemoglobin Carboxyhemoglobin Sodium Potassium Chloride Carbon Dioxide BUN Creatinine Glucose POC Glucose 114 H 121 H 120 H Calcium Ferritin Total Bilirubin Alkaline Phosphatase Lactate Dehydrogenase Total Creatine Kinase CK-MB (CK-2) Rel Index Troponin T C-Reactive Protein Total Protein Albumin Prealbumin LDL Cholesterol Direct HDL Cholesterol Arterial Blood Glucose Arterial Blood Ionized Calcium Urine WBC (Auto) 03/02/20 03/02/20 03/03/20 09:47 09:47 10:21 WBC 23.6 H RBC Hgb Hct MCV MCH RDW 15.3 H Plt Count 494 H Lymph % (Auto) [place] % (Auto) Eos % (Auto) Lymph # (Auto) [place] # (Auto) Eos # (Auto) Seg Neutrophils % Seg Neuts % (Manual) 85.0 H Lymphocytes % (Manual) 6.0 L Monocytes % (Manual) Basophils % (Manual) Seg Neutrophils # Seg Neutrophils # Man 20.1 H Lymphocytes # (Manual) Monocytes # (Manual) 1.7 H Eosinophils # (Manual) Basophils # (Manual) PT INR D-Dimer ABG pH POC ABG pCO2 POC ABG pO2 ABG pO2 ABG HCO3 ABG O2 Saturation ABG Base Excess ABG Hemoglobin ABG Oxyhemoglobin ABG Potassium 3.3 L ABG Glucose 158 H Oxyhemoglobin Carboxyhemoglobin Sodium Potassium Chloride Carbon Dioxide BUN Creatinine < 0.2 L Glucose 177 H POC Glucose Calcium Ferritin Total Bilirubin Alkaline Phosphatase Lactate Dehydrogenase Total Creatine Kinase CK-MB (CK-2) Rel Index Troponin T C-Reactive Protein Total Protein Albumin Prealbumin LDL Cholesterol Direct HDL Cholesterol Arterial Blood Glucose 158 H Arterial Blood Ionized Calcium Urine WBC (Auto) 03/03/20 03/04/20 03/04/20 21:30 00:00 12:23 WBC RBC Hgb Hct MCV MCH RDW Plt Count Lymph % (Auto) [place] % (Auto) Eos % (Auto) Lymph # (Auto) [place] # (Auto) Eos # (Auto) Seg Neutrophils % Seg Neuts % (Manual) Lymphocytes % (Manual) Monocytes % (Manual) Basophils % (Manual) Seg Neutrophils # Seg Neutrophils # Man Lymphocytes # (Manual) Monocytes # (Manual) Eosinophils # (Manual) Basophils # (Manual) PT INR D-Dimer ABG pH 7.328 L POC ABG pCO2 POC ABG pO2 ABG pO2 68.4 L ABG HCO3 35.0 H ABG O2 Saturation 93.9 L ABG Base Excess 6.8 H ABG Hemoglobin 12.7 L ABG Oxyhemoglobin ABG Potassium ABG Glucose Oxyhemoglobin 91.9 L Carboxyhemoglobin Sodium Potassium Chloride Carbon Dioxide BUN Creatinine Glucose POC Glucose 187 H 163 H Calcium Ferritin Total Bilirubin Alkaline Phosphatase Lactate Dehydrogenase Total Creatine Kinase CK-MB (CK-2) Rel Index Troponin T C-Reactive Protein Total Protein Albumin Prealbumin LDL Cholesterol Direct HDL Cholesterol Arterial Blood Glucose Arterial Blood Ionized Calcium Urine WBC (Auto) 03/04/20 03/04/20 03/05/20 18:15 21:30 06:02 WBC RBC Hgb Hct MCV MCH RDW Plt Count Lymph % (Auto) [place] % (Auto) Eos % (Auto) Lymph # (Auto) [place] # (Auto) Eos # (Auto) Seg Neutrophils % Seg Neuts % (Manual) Lymphocytes % (Manual) Monocytes % (Manual) Basophils % (Manual) Seg Neutrophils # Seg Neutrophils # Man Lymphocytes # (Manual) Monocytes # (Manual) Eosinophils # (Manual) Basophils # (Manual) PT INR D-Dimer ABG pH 7.297 L POC ABG pCO2 POC ABG pO2 ABG pO2 ABG HCO3 41.0 H ABG O2 Saturation ABG Base Excess 11.0 H ABG Hemoglobin 13.1 L ABG Oxyhemoglobin ABG Potassium ABG Glucose Oxyhemoglobin 94.5 L Carboxyhemoglobin Sodium Potassium Chloride Carbon Dioxide BUN Creatinine Glucose POC Glucose 192 H 127 H Calcium Ferritin Total Bilirubin Alkaline Phosphatase Lactate Dehydrogenase Total Creatine Kinase CK-MB (CK-2) Rel Index Troponin T C-Reactive Protein Total Protein Albumin Prealbumin LDL Cholesterol Direct HDL Cholesterol Arterial Blood Glucose Arterial Blood Ionized Calcium Urine WBC (Auto) 03/05/20 03/05/20 03/06/20 12:09 16:42 00:24 WBC RBC Hgb Hct MCV MCH RDW Plt Count Lymph % (Auto) [place] % (Auto) Eos % (Auto) Lymph # (Auto) [place] # (Auto) Eos # (Auto) Seg Neutrophils % Seg Neuts % (Manual) Lymphocytes % (Manual) Monocytes % (Manual) Basophils % (Manual) Seg Neutrophils # Seg Neutrophils # Man Lymphocytes # (Manual) Monocytes # (Manual) Eosinophils # (Manual) Basophils # (Manual) PT INR D-Dimer ABG pH POC ABG pCO2 POC ABG pO2 ABG pO2 ABG HCO3 ABG O2 Saturation ABG Base Excess ABG Hemoglobin ABG Oxyhemoglobin ABG Potassium ABG Glucose Oxyhemoglobin Carboxyhemoglobin Sodium Potassium Chloride Carbon Dioxide BUN Creatinine Glucose POC Glucose 147 H 114 H 134 H Calcium Ferritin Total Bilirubin Alkaline Phosphatase Lactate Dehydrogenase Total Creatine Kinase CK-MB (CK-2) Rel Index Troponin T C-Reactive Protein Total Protein Albumin Prealbumin LDL Cholesterol Direct HDL Cholesterol Arterial Blood Glucose Arterial Blood Ionized Calcium Urine WBC (Auto) 03/06/20 03/06/20 03/06/20 04:34 05:53 06:08 WBC 25.4 H RBC Hgb 10.5 L Hct 32.7 L MCV MCH 27 L RDW 15.3 H Plt Count 634 H Lymph % (Auto) [place] % (Auto) Eos % (Auto) Lymph # (Auto) [place] # (Auto) Eos # (Auto) Seg Neutrophils % Seg Neuts % (Manual) 88.0 H Lymphocytes % (Manual) 2.0 L Monocytes % (Manual) 8.0 H Basophils % (Manual) Seg Neutrophils # Seg Neutrophils # Man 22.4 H Lymphocytes # (Manual) 0.5 L Monocytes # (Manual) 2.0 H Eosinophils # (Manual) Basophils # (Manual) PT INR D-Dimer ABG pH POC ABG pCO2 POC ABG pO2 ABG pO2 ABG HCO3 37.9 H ABG O2 Saturation ABG Base Excess 11.4 H ABG Hemoglobin 10.6 L ABG Oxyhemoglobin ABG Potassium ABG Glucose Oxyhemoglobin 94.7 L Carboxyhemoglobin Sodium Potassium Chloride Carbon Dioxide BUN Creatinine Glucose POC Glucose 135 H Calcium Ferritin Total Bilirubin Alkaline Phosphatase Lactate Dehydrogenase Total Creatine Kinase CK-MB (CK-2) Rel Index Troponin T C-Reactive Protein Total Protein Albumin Prealbumin LDL Cholesterol Direct HDL Cholesterol Arterial Blood Glucose Arterial Blood Ionized Calcium Urine WBC (Auto) 03/06/20 03/06/20 03/06/20 06:08 12:19 19:10 WBC RBC Hgb Hct MCV MCH RDW Plt Count Lymph % (Auto) [place] % (Auto) Eos % (Auto) Lymph # (Auto) [place] # (Auto) Eos # (Auto) Seg Neutrophils % Seg Neuts % (Manual) Lymphocytes % (Manual) Monocytes % (Manual) Basophils % (Manual) Seg Neutrophils # Seg Neutrophils # Man Lymphocytes # (Manual) Monocytes # (Manual) Eosinophils # (Manual) Basophils # (Manual) PT INR D-Dimer ABG pH POC ABG pCO2 POC ABG pO2 ABG pO2 ABG HCO3 ABG O2 Saturation ABG Base Excess ABG Hemoglobin ABG Oxyhemoglobin ABG Potassium ABG Glucose Oxyhemoglobin Carboxyhemoglobin Sodium 150 H D Potassium Chloride Carbon Dioxide 39 H D BUN 23 H Creatinine < 0.2 L Glucose 144 H POC Glucose 169 H 152 H Calcium Ferritin Total Bilirubin Alkaline Phosphatase Lactate Dehydrogenase Total Creatine Kinase CK-MB (CK-2) Rel Index Troponin T C-Reactive Protein Total Protein Albumin 3.3 L Prealbumin LDL Cholesterol Direct HDL Cholesterol Arterial Blood Glucose Arterial Blood Ionized Calcium Urine WBC (Auto) 03/06/20 03/07/20 03/07/20 23:58 04:25 04:25 WBC 22.1 H RBC Hgb 10.9 L Hct 32.9 L MCV MCH RDW 15.5 H Plt Count 739 H Lymph % (Auto) 7.8 L [place] % (Auto) Eos % (Auto) Lymph # (Auto) [place] # (Auto) 1.3 H Eos # (Auto) Seg Neutrophils % 85.5 H Seg Neuts % (Manual) Lymphocytes % (Manual) Monocytes % (Manual) Basophils % (Manual) Seg Neutrophils # 18.9 H Seg Neutrophils # Man Lymphocytes # (Manual) Monocytes # (Manual) Eosinophils # (Manual) Basophils # (Manual) PT INR D-Dimer ABG pH POC ABG pCO2 POC ABG pO2 ABG pO2 ABG HCO3 ABG O2 Saturation ABG Base Excess ABG Hemoglobin ABG Oxyhemoglobin ABG Potassium ABG Glucose Oxyhemoglobin Carboxyhemoglobin Sodium 146 H Potassium Chloride Carbon Dioxide 37 H BUN Creatinine < 0.2 L Glucose 118 H POC Glucose 111 H Calcium Ferritin Total Bilirubin Alkaline Phosphatase Lactate Dehydrogenase Total Creatine Kinase CK-MB (CK-2) Rel Index Troponin T C-Reactive Protein Total Protein Albumin 3.7 L Prealbumin LDL Cholesterol Direct HDL Cholesterol Arterial Blood Glucose Arterial Blood Ionized Calcium Urine WBC (Auto) 03/07/20 03/07/20 03/07/20 05:20 17:45 23:32 WBC RBC Hgb Hct MCV MCH RDW Plt Count Lymph % (Auto) [place] % (Auto) Eos % (Auto) Lymph # (Auto) [place] # (Auto) Eos # (Auto) Seg Neutrophils % Seg Neuts % (Manual) Lymphocytes % (Manual) Monocytes % (Manual) Basophils % (Manual) Seg Neutrophils # Seg Neutrophils # Man Lymphocytes # (Manual) Monocytes # (Manual) Eosinophils # (Manual) Basophils # (Manual) PT INR D-Dimer ABG pH POC ABG pCO2 POC ABG pO2 ABG pO2 ABG HCO3 ABG O2 Saturation ABG Base Excess ABG Hemoglobin ABG Oxyhemoglobin ABG Potassium ABG Glucose Oxyhemoglobin Carboxyhemoglobin Sodium Potassium Chloride Carbon Dioxide BUN Creatinine Glucose POC Glucose 113 H 124 H 210 H Calcium Ferritin Total Bilirubin Alkaline Phosphatase Lactate Dehydrogenase Total Creatine Kinase CK-MB (CK-2) Rel Index Troponin T C-Reactive Protein Total Protein Albumin Prealbumin LDL Cholesterol Direct HDL Cholesterol Arterial Blood Glucose Arterial Blood Ionized Calcium Urine WBC (Auto) 03/08/20 03/08/20 03/08/20 05:35 06:43 06:43 WBC 28.9 H RBC 3.53 L Hgb 9.7 L Hct 30.3 L MCV MCH RDW 15.6 H Plt Count 578 H Lymph % (Auto) [place] % (Auto) Eos % (Auto) Lymph # (Auto) [place] # (Auto) Eos # (Auto) Seg Neutrophils % Seg Neuts % (Manual) 93.0 H Lymphocytes % (Manual) 4.0 L Monocytes % (Manual) Basophils % (Manual) Seg Neutrophils # Seg Neutrophils # Man 26.9 H Lymphocytes # (Manual) Monocytes # (Manual) Eosinophils # (Manual) Basophils # (Manual) PT INR D-Dimer ABG pH POC ABG pCO2 POC ABG pO2 ABG pO2 ABG HCO3 ABG O2 Saturation ABG Base Excess ABG Hemoglobin ABG Oxyhemoglobin ABG Potassium ABG Glucose Oxyhemoglobin Carboxyhemoglobin Sodium 146 H Potassium Chloride Carbon Dioxide 35 H BUN 34 H Creatinine 0.3 L D Glucose 125 H POC Glucose 147 H Calcium Ferritin Total Bilirubin Alkaline Phosphatase Lactate Dehydrogenase Total Creatine Kinase CK-MB (CK-2) Rel Index Troponin T C-Reactive Protein Total Protein 5.9 L Albumin 3.2 L Prealbumin LDL Cholesterol Direct HDL Cholesterol Arterial Blood Glucose Arterial Blood Ionized Calcium Urine WBC (Auto) 03/08/20 03/08/20 03/08/20 08:57 11:14 12:34 WBC RBC Hgb Hct MCV MCH RDW Plt Count Lymph % (Auto) [place] % (Auto) Eos % (Auto) Lymph # (Auto) [place] # (Auto) Eos # (Auto) Seg Neutrophils % Seg Neuts % (Manual) Lymphocytes % (Manual) Monocytes % (Manual) Basophils % (Manual) Seg Neutrophils # Seg Neutrophils # Man Lymphocytes # (Manual) Monocytes # (Manual) Eosinophils # (Manual) Basophils # (Manual) PT INR D-Dimer ABG pH POC ABG pCO2 63.1 H POC ABG pO2 ABG pO2 ABG HCO3 ABG O2 Saturation ABG Base Excess ABG Hemoglobin 10.9 L ABG Oxyhemoglobin ABG Potassium ABG Glucose 176 H Oxyhemoglobin Carboxyhemoglobin Sodium Potassium Chloride Carbon Dioxide BUN Creatinine Glucose POC Glucose 171 H Calcium Ferritin Total Bilirubin Alkaline Phosphatase Lactate Dehydrogenase Total Creatine Kinase CK-MB (CK-2) Rel Index Troponin T C-Reactive Protein Total Protein Albumin Prealbumin LDL Cholesterol Direct HDL Cholesterol Arterial Blood Glucose 176 H Arterial Blood Ionized Calcium 4.5 L Urine WBC (Auto) 10.0 H 1111/20 11/11/20 11/12/20 18:02 23:43 05:49 WBC RBC Hgb Hct MCV MCH RDW Plt Count Lymph % (Auto) [place] % (Auto) Eos % (Auto) Lymph # (Auto) [place] # (Auto) Eos # (Auto) Seg Neutrophils % Seg Neuts % (Manual) Lymphocytes % (Manual) Monocytes % (Manual) Basophils % (Manual) Seg Neutrophils # Seg Neutrophils # Man Lymphocytes # (Manual) Monocytes # (Manual) Eosinophils # (Manual) Basophils # (Manual) PT INR D-Dimer ABG pH POC ABG pCO2 POC ABG pO2 ABG pO2 ABG HCO3 ABG O2 Saturation ABG Base Excess ABG Hemoglobin ABG Oxyhemoglobin ABG Potassium ABG Glucose Oxyhemoglobin Carboxyhemoglobin Sodium Potassium Chloride Carbon Dioxide BUN Creatinine Glucose POC Glucose 157 H 134 H 163 H Calcium Ferritin Total Bilirubin Alkaline Phosphatase Lactate Dehydrogenase Total Creatine Kinase CK-MB (CK-2) Rel Index Troponin T C-Reactive Protein Total Protein Albumin Prealbumin LDL Cholesterol Direct HDL Cholesterol Arterial Blood Glucose Arterial Blood Ionized Calcium Urine WBC (Auto) 03/09/20 03/09/20 03/09/20 08:35 08:35 12:11 WBC 23.4 H RBC 3.36 L Hgb 9.3 L Hct 28.8 L MCV MCH RDW 15.9 H Plt Count 521 H Lymph % (Auto) [place] % (Auto) Eos % (Auto) Lymph # (Auto) [place] # (Auto) Eos # (Auto) Seg Neutrophils % Seg Neuts % (Manual) 87.0 H Lymphocytes % (Manual) 4.0 L Monocytes % (Manual) 9.0 H Basophils % (Manual) Seg Neutrophils # Seg Neutrophils # Man 20.4 H Lymphocytes # (Manual) 0.9 L Monocytes # (Manual) 2.1 H Eosinophils # (Manual) Basophils # (Manual) PT INR D-Dimer ABG pH POC ABG pCO2 POC ABG pO2 ABG pO2 ABG HCO3 ABG O2 Saturation ABG Base Excess ABG Hemoglobin ABG Oxyhemoglobin ABG Potassium ABG Glucose Oxyhemoglobin Carboxyhemoglobin Sodium 147 H Potassium Chloride Carbon Dioxide 37 H BUN 63 H Creatinine Glucose 154 H POC Glucose 128 H Calcium Ferritin Total Bilirubin Alkaline Phosphatase Lactate Dehydrogenase Total Creatine Kinase CK-MB (CK-2) Rel Index Troponin T C-Reactive Protein Total Protein Albumin Prealbumin LDL Cholesterol Direct HDL Cholesterol Arterial Blood Glucose Arterial Blood Ionized Calcium Urine WBC (Auto) 03/09/20 03/10/20 03/10/20 17:51 00:25 05:41 WBC RBC Hgb Hct MCV MCH RDW Plt Count Lymph % (Auto) [place] % (Auto) Eos % (Auto) Lymph # (Auto) [place] # (Auto) Eos # (Auto) Seg Neutrophils % Seg Neuts % (Manual) Lymphocytes % (Manual) Monocytes % (Manual) Basophils % (Manual) Seg Neutrophils # Seg Neutrophils # Man Lymphocytes # (Manual) Monocytes # (Manual) Eosinophils # (Manual) Basophils # (Manual) PT INR D-Dimer ABG pH POC ABG pCO2 POC ABG pO2 ABG pO2 ABG HCO3 ABG O2 Saturation ABG Base Excess ABG Hemoglobin ABG Oxyhemoglobin ABG Potassium ABG Glucose Oxyhemoglobin Carboxyhemoglobin Sodium Potassium Chloride Carbon Dioxide BUN Creatinine Glucose POC Glucose 127 H 128 H 153 H Calcium Ferritin Total Bilirubin Alkaline Phosphatase Lactate Dehydrogenase Total Creatine Kinase CK-MB (CK-2) Rel Index Troponin T C-Reactive Protein Total Protein Albumin Prealbumin LDL Cholesterol Direct HDL Cholesterol Arterial Blood Glucose Arterial Blood Ionized Calcium Urine WBC (Auto) 03/10/20 03/10/20 03/10/20 06:14 06:14 12:02 WBC 18.3 H RBC 3.45 L Hgb 9.5 L Hct 29.5 L MCV MCH RDW 16.1 H Plt Count 494 H Lymph % (Auto) [place] % (Auto) Eos % (Auto) Lymph # (Auto) [place] # (Auto) Eos # (Auto) Seg Neutrophils % Seg Neuts % (Manual) 95.0 H Lymphocytes % (Manual) 1.0 L Monocytes % (Manual) Basophils % (Manual) Seg Neutrophils # Seg Neutrophils # Man 17.4 H Lymphocytes # (Manual) 0.2 L Monocytes # (Manual) Eosinophils # (Manual) Basophils # (Manual) PT INR D-Dimer ABG pH POC ABG pCO2 POC ABG pO2 ABG pO2 ABG HCO3 ABG O2 Saturation ABG Base Excess ABG Hemoglobin ABG Oxyhemoglobin ABG Potassium ABG Glucose Oxyhemoglobin Carboxyhemoglobin Sodium 149 H Potassium Chloride Carbon Dioxide 35 H BUN 34 H Creatinine 0.2 L D Glucose 177 H POC Glucose 151 H Calcium Ferritin Total Bilirubin Alkaline Phosphatase Lactate Dehydrogenase Total Creatine Kinase CK-MB (CK-2) Rel Index Troponin T C-Reactive Protein Total Protein Albumin Prealbumin LDL Cholesterol Direct HDL Cholesterol Arterial Blood Glucose Arterial Blood Ionized Calcium Urine WBC (Auto) 03/10/20 03/10/20 03/11/20 17:41 23:53 05:02 WBC RBC Hgb Hct MCV MCH RDW Plt Count Lymph % (Auto) [place] % (Auto) Eos % (Auto) Lymph # (Auto) [place] # (Auto) Eos # (Auto) Seg Neutrophils % Seg Neuts % (Manual) Lymphocytes % (Manual) Monocytes % (Manual) Basophils % (Manual) Seg Neutrophils # Seg Neutrophils # Man Lymphocytes # (Manual) Monocytes # (Manual) Eosinophils # (Manual) Basophils # (Manual) PT INR D-Dimer ABG pH POC ABG pCO2 POC ABG pO2 ABG pO2 ABG HCO3 ABG O2 Saturation ABG Base Excess ABG Hemoglobin ABG Oxyhemoglobin ABG Potassium ABG Glucose Oxyhemoglobin Carboxyhemoglobin Sodium Potassium Chloride Carbon Dioxide BUN Creatinine Glucose POC Glucose 168 H 142 H 146 H Calcium Ferritin Total Bilirubin Alkaline Phosphatase Lactate Dehydrogenase Total Creatine Kinase CK-MB (CK-2) Rel Index Troponin T C-Reactive Protein Total Protein Albumin Prealbumin LDL Cholesterol Direct HDL Cholesterol Arterial Blood Glucose Arterial Blood Ionized Calcium Urine WBC (Auto) 03/11/20 03/11/20 03/11/20 11:30 14:01 14:01 WBC 19.7 H RBC 3.04 L Hgb 8.7 L Hct 25.8 L MCV MCH RDW 15.6 H Plt Count Lymph % (Auto) [place] % (Auto) Eos % (Auto) Lymph # (Auto) [place] # (Auto) Eos # (Auto) Seg Neutrophils % Seg Neuts % (Manual) Lymphocytes % (Manual) Monocytes % (Manual) Basophils % (Manual) Seg Neutrophils # Seg Neutrophils # Man Lymphocytes # (Manual) Monocytes # (Manual) Eosinophils # (Manual) Basophils # (Manual) PT INR D-Dimer ABG pH POC ABG pCO2 POC ABG pO2 ABG pO2 ABG HCO3 ABG O2 Saturation ABG Base Excess ABG Hemoglobin ABG Oxyhemoglobin ABG Potassium ABG Glucose Oxyhemoglobin Carboxyhemoglobin Sodium 151 H Potassium Chloride Carbon Dioxide 37 H BUN Creatinine < 0.2 L Glucose 171 H POC Glucose 248 H Calcium Ferritin Total Bilirubin Alkaline Phosphatase Lactate Dehydrogenase Total Creatine Kinase CK-MB (CK-2) Rel Index Troponin T C-Reactive Protein Total Protein Albumin Prealbumin LDL Cholesterol Direct HDL Cholesterol Arterial Blood Glucose Arterial Blood Ionized Calcium Urine WBC (Auto) 03/11/20 03/11/20 03/12/20 17:09 23:52 04:39 WBC 19.9 H RBC 3.16 L Hgb 8.9 L Hct 27.5 L MCV MCH RDW 15.7 H Plt Count Lymph % (Auto) 6.8 L [place] % (Auto) Eos % (Auto) Lymph # (Auto) [place] # (Auto) 1.2 H Eos # (Auto) Seg Neutrophils % 86.0 H Seg Neuts % (Manual) Lymphocytes % (Manual) Monocytes % (Manual) Basophils % (Manual) Seg Neutrophils # 17.1 H Seg Neutrophils # Man Lymphocytes # (Manual) Monocytes # (Manual) Eosinophils # (Manual) Basophils # (Manual) PT INR D-Dimer ABG pH POC ABG pCO2 POC ABG pO2 ABG pO2 ABG HCO3 ABG O2 Saturation ABG Base Excess ABG Hemoglobin ABG Oxyhemoglobin ABG Potassium ABG Glucose Oxyhemoglobin Carboxyhemoglobin Sodium Potassium Chloride Carbon Dioxide BUN Creatinine Glucose POC Glucose 124 H 131 H Calcium Ferritin Total Bilirubin Alkaline Phosphatase Lactate Dehydrogenase Total Creatine Kinase CK-MB (CK-2) Rel Index Troponin T C-Reactive Protein Total Protein Albumin Prealbumin LDL Cholesterol Direct HDL Cholesterol Arterial Blood Glucose Arterial Blood Ionized Calcium Urine WBC (Auto) 03/12/20 03/12/20 03/12/20 04:39 05:28 11:34 WBC RBC Hgb Hct MCV MCH RDW Plt Count Lymph % (Auto) [place] % (Auto) Eos % (Auto) Lymph # (Auto) [place] # (Auto) Eos # (Auto) Seg Neutrophils % Seg Neuts % (Manual) Lymphocytes % (Manual) Monocytes % (Manual) Basophils % (Manual) Seg Neutrophils # Seg Neutrophils # Man Lymphocytes # (Manual) Monocytes # (Manual) Eosinophils # (Manual) Basophils # (Manual) PT INR D-Dimer ABG pH POC ABG pCO2 POC ABG pO2 ABG pO2 ABG HCO3 ABG O2 Saturation ABG Base Excess ABG Hemoglobin ABG Oxyhemoglobin ABG Potassium ABG Glucose Oxyhemoglobin Carboxyhemoglobin Sodium 147 H Potassium Chloride Carbon Dioxide 40 H BUN Creatinine < 0.2 L Glucose 175 H POC Glucose 167 H 144 H Calcium Ferritin Total Bilirubin Alkaline Phosphatase Lactate Dehydrogenase Total Creatine Kinase CK-MB (CK-2) Rel Index Troponin T C-Reactive Protein Total Protein Albumin Prealbumin LDL Cholesterol Direct HDL Cholesterol Arterial Blood Glucose Arterial Blood Ionized Calcium Urine WBC (Auto) 03/12/20 03/12/20 03/13/20 17:32 23:57 05:57 WBC RBC Hgb Hct MCV MCH RDW Plt Count Lymph % (Auto) [place] % (Auto) Eos % (Auto) Lymph # (Auto) [place] # (Auto) Eos # (Auto) Seg Neutrophils % Seg Neuts % (Manual) Lymphocytes % (Manual) Monocytes % (Manual) Basophils % (Manual) Seg Neutrophils # Seg Neutrophils # Man Lymphocytes # (Manual) Monocytes # (Manual) Eosinophils # (Manual) Basophils # (Manual) PT INR D-Dimer ABG pH POC ABG pCO2 POC ABG pO2 ABG pO2 ABG HCO3 ABG O2 Saturation ABG Base Excess ABG Hemoglobin ABG Oxyhemoglobin ABG Potassium ABG Glucose Oxyhemoglobin Carboxyhemoglobin Sodium Potassium Chloride Carbon Dioxide BUN Creatinine Glucose POC Glucose 141 H 137 H 161 H Calcium Ferritin Total Bilirubin Alkaline Phosphatase Lactate Dehydrogenase Total Creatine Kinase CK-MB (CK-2) Rel Index Troponin T C-Reactive Protein Total Protein Albumin Prealbumin LDL Cholesterol Direct HDL Cholesterol Arterial Blood Glucose Arterial Blood Ionized Calcium Urine WBC (Auto) 03/13/20 03/13/20 03/13/20 12:28 14:14 18:39 WBC RBC Hgb Hct MCV MCH RDW Plt Count Lymph % (Auto) [place] % (Auto) Eos % (Auto) Lymph # (Auto) [place] # (Auto) Eos # (Auto) Seg Neutrophils % Seg Neuts % (Manual) Lymphocytes % (Manual) Monocytes % (Manual) Basophils % (Manual) Seg Neutrophils # Seg Neutrophils # Man Lymphocytes # (Manual) Monocytes # (Manual) Eosinophils # (Manual) Basophils # (Manual) PT INR D-Dimer ABG pH POC ABG pCO2 POC ABG pO2 ABG pO2 ABG HCO3 ABG O2 Saturation ABG Base Excess ABG Hemoglobin ABG Oxyhemoglobin ABG Potassium ABG Glucose Oxyhemoglobin Carboxyhemoglobin Sodium Potassium Chloride Carbon Dioxide 39 H BUN Creatinine < 0.2 L Glucose 129 H POC Glucose 130 H 125 H Calcium Ferritin Total Bilirubin Alkaline Phosphatase Lactate Dehydrogenase Total Creatine Kinase CK-MB (CK-2) Rel Index Troponin T C-Reactive Protein Total Protein Albumin Prealbumin LDL Cholesterol Direct HDL Cholesterol Arterial Blood Glucose Arterial Blood Ionized Calcium Urine WBC (Auto) 03/13/20 03/14/20 03/14/20 23:33 05:24 08:07 WBC 16.8 H RBC 2.81 L Hgb 7.9 L Hct 23.9 L MCV MCH RDW 15.9 H Plt Count Lymph % (Auto) [place] % (Auto) Eos % (Auto) Lymph # (Auto) [place] # (Auto) Eos # (Auto) Seg Neutrophils % Seg Neuts % (Manual) 84.0 H Lymphocytes % (Manual) 10.0 L Monocytes % (Manual) Basophils % (Manual) Seg Neutrophils # Seg Neutrophils # Man 14.1 H Lymphocytes # (Manual) Monocytes # (Manual) Eosinophils # (Manual) Basophils # (Manual) PT INR D-Dimer ABG pH POC ABG pCO2 POC ABG pO2 ABG pO2 ABG HCO3 ABG O2 Saturation ABG Base Excess ABG Hemoglobin ABG Oxyhemoglobin ABG Potassium ABG Glucose Oxyhemoglobin Carboxyhemoglobin Sodium Potassium Chloride Carbon Dioxide BUN Creatinine Glucose POC Glucose 146 H 125 H Calcium Ferritin Total Bilirubin Alkaline Phosphatase Lactate Dehydrogenase Total Creatine Kinase CK-MB (CK-2) Rel Index Troponin T C-Reactive Protein Total Protein Albumin Prealbumin LDL Cholesterol Direct HDL Cholesterol Arterial Blood Glucose Arterial Blood Ionized Calcium Urine WBC (Auto) 03/14/20 03/14/20 03/14/20 08:07 12:21 18:26 WBC RBC Hgb Hct MCV MCH RDW Plt Count Lymph % (Auto) [place] % (Auto) Eos % (Auto) Lymph # (Auto) [place] # (Auto) Eos # (Auto) Seg Neutrophils % Seg Neuts % (Manual) Lymphocytes % (Manual) Monocytes % (Manual) Basophils % (Manual) Seg Neutrophils # Seg Neutrophils # Man Lymphocytes # (Manual) Monocytes # (Manual) Eosinophils # (Manual) Basophils # (Manual) PT INR D-Dimer ABG pH POC ABG pCO2 POC ABG pO2 ABG pO2 ABG HCO3 ABG O2 Saturation ABG Base Excess ABG Hemoglobin ABG Oxyhemoglobin ABG Potassium ABG Glucose Oxyhemoglobin Carboxyhemoglobin Sodium Potassium Chloride 97.0 L Carbon Dioxide 37 H BUN Creatinine < 0.2 L Glucose 129 H POC Glucose 109 H 142 H Calcium 8.3 L Ferritin Total Bilirubin Alkaline Phosphatase Lactate Dehydrogenase Total Creatine Kinase CK-MB (CK-2) Rel Index Troponin T C-Reactive Protein Total Protein Albumin Prealbumin LDL Cholesterol Direct HDL Cholesterol Arterial Blood Glucose Arterial Blood Ionized Calcium Urine WBC (Auto) 03/14/20 03/15/20 03/15/20 23:57 05:46 08:06 WBC 19.7 H RBC 3.29 L Hgb 9.1 L Hct 28.0 L MCV MCH RDW 15.9 H Plt Count Lymph % (Auto) [place] % (Auto) Eos % (Auto) Lymph # (Auto) [place] # (Auto) Eos # (Auto) Seg Neutrophils % Seg Neuts % (Manual) Lymphocytes % (Manual) Monocytes % (Manual) Basophils % (Manual) Seg Neutrophils # Seg Neutrophils # Man Lymphocytes # (Manual) Monocytes # (Manual) Eosinophils # (Manual) Basophils # (Manual) PT INR D-Dimer ABG pH POC ABG pCO2 POC ABG pO2 ABG pO2 ABG HCO3 ABG O2 Saturation ABG Base Excess ABG Hemoglobin ABG Oxyhemoglobin ABG Potassium ABG Glucose Oxyhemoglobin Carboxyhemoglobin Sodium Potassium Chloride Carbon Dioxide BUN Creatinine Glucose POC Glucose 157 H 118 H Calcium Ferritin Total Bilirubin Alkaline Phosphatase Lactate Dehydrogenase Total Creatine Kinase CK-MB (CK-2) Rel Index Troponin T C-Reactive Protein Total Protein Albumin Prealbumin LDL Cholesterol Direct HDL Cholesterol Arterial Blood Glucose Arterial Blood Ionized Calcium Urine WBC (Auto) 03/15/20 03/15/20 03/15/20 08:06 12:44 18:09 WBC RBC Hgb Hct MCV MCH RDW Plt Count Lymph % (Auto) [place] % (Auto) Eos % (Auto) Lymph # (Auto) [place] # (Auto) Eos # (Auto) Seg Neutrophils % Seg Neuts % (Manual) Lymphocytes % (Manual) Monocytes % (Manual) Basophils % (Manual) Seg Neutrophils # Seg Neutrophils # Man Lymphocytes # (Manual) Monocytes # (Manual) Eosinophils # (Manual) Basophils # (Manual) PT INR D-Dimer ABG pH POC ABG pCO2 POC ABG pO2 ABG pO2 ABG HCO3 ABG O2 Saturation ABG Base Excess ABG Hemoglobin ABG Oxyhemoglobin ABG Potassium ABG Glucose Oxyhemoglobin Carboxyhemoglobin Sodium 136 L Potassium Chloride 93.6 L Carbon Dioxide 37 H BUN Creatinine < 0.2 L Glucose 132 H POC Glucose 151 H 164 H Calcium Ferritin Total Bilirubin Alkaline Phosphatase Lactate Dehydrogenase Total Creatine Kinase CK-MB (CK-2) Rel Index Troponin T C-Reactive Protein Total Protein Albumin Prealbumin LDL Cholesterol Direct HDL Cholesterol Arterial Blood Glucose Arterial Blood Ionized Calcium Urine WBC (Auto) 03/15/20 03/16/20 03/16/20 23:26 05:39 11:58 WBC RBC Hgb Hct MCV MCH RDW Plt Count Lymph % (Auto) [place] % (Auto) Eos % (Auto) Lymph # (Auto) [place] # (Auto) Eos # (Auto) Seg Neutrophils % Seg Neuts % (Manual) Lymphocytes % (Manual) Monocytes % (Manual) Basophils % (Manual) Seg Neutrophils # Seg Neutrophils # Man Lymphocytes # (Manual) Monocytes # (Manual) Eosinophils # (Manual) Basophils # (Manual) PT INR D-Dimer ABG pH POC ABG pCO2 POC ABG pO2 ABG pO2 ABG HCO3 ABG O2 Saturation ABG Base Excess ABG Hemoglobin ABG Oxyhemoglobin ABG Potassium ABG Glucose Oxyhemoglobin Carboxyhemoglobin Sodium Potassium Chloride Carbon Dioxide BUN Creatinine Glucose POC Glucose 136 H 116 H 109 H Calcium Ferritin Total Bilirubin Alkaline Phosphatase Lactate Dehydrogenase Total Creatine Kinase CK-MB (CK-2) Rel Index Troponin T C-Reactive Protein Total Protein Albumin Prealbumin LDL Cholesterol Direct HDL Cholesterol Arterial Blood Glucose Arterial Blood Ionized Calcium Urine WBC (Auto) 03/16/20 03/17/20 03/17/20 23:56 04:40 04:40 WBC 18.0 H RBC 3.33 L Hgb 9.5 L Hct 28.8 L MCV MCH RDW 16.4 H Plt Count 499 H Lymph % (Auto) [place] % (Auto) Eos % (Auto) Lymph # (Auto) [place] # (Auto) Eos # (Auto) Seg Neutrophils % Seg Neuts % (Manual) 82.0 H Lymphocytes % (Manual) 8.0 L Monocytes % (Manual) Basophils % (Manual) Seg Neutrophils # Seg Neutrophils # Man 14.8 H Lymphocytes # (Manual) Monocytes # (Manual) 1.3 H Eosinophils # (Manual) Basophils # (Manual) 0.2 H PT INR D-Dimer ABG pH POC ABG pCO2 POC ABG pO2 ABG pO2 ABG HCO3 ABG O2 Saturation ABG Base Excess ABG Hemoglobin ABG Oxyhemoglobin ABG Potassium ABG Glucose Oxyhemoglobin Carboxyhemoglobin Sodium Potassium Chloride 97.7 L Carbon Dioxide 32 H BUN Creatinine < 0.2 L Glucose 114 H POC Glucose 131 H Calcium Ferritin Total Bilirubin Alkaline Phosphatase Lactate Dehydrogenase Total Creatine Kinase CK-MB (CK-2) Rel Index Troponin T C-Reactive Protein Total Protein Albumin Prealbumin LDL Cholesterol Direct HDL Cholesterol Arterial Blood Glucose Arterial Blood Ionized Calcium Urine WBC (Auto) 03/18/20 03/18/20 03/18/20 00:21 05:21 11:55 WBC RBC Hgb Hct MCV MCH RDW Plt Count Lymph % (Auto) [place] % (Auto) Eos % (Auto) Lymph # (Auto) [place] # (Auto) Eos # (Auto) Seg Neutrophils % Seg Neuts % (Manual) Lymphocytes % (Manual) Monocytes % (Manual) Basophils % (Manual) Seg Neutrophils # Seg Neutrophils # Man Lymphocytes # (Manual) Monocytes # (Manual) Eosinophils # (Manual) Basophils # (Manual) PT INR D-Dimer ABG pH POC ABG pCO2 POC ABG pO2 ABG pO2 ABG HCO3 ABG O2 Saturation ABG Base Excess ABG Hemoglobin ABG Oxyhemoglobin ABG Potassium ABG Glucose Oxyhemoglobin Carboxyhemoglobin Sodium Potassium Chloride Carbon Dioxide BUN Creatinine Glucose POC Glucose 124 H 138 H 119 H Calcium Ferritin Total Bilirubin Alkaline Phosphatase Lactate Dehydrogenase Total Creatine Kinase CK-MB (CK-2) Rel Index Troponin T C-Reactive Protein Total Protein Albumin Prealbumin LDL Cholesterol Direct HDL Cholesterol Arterial Blood Glucose Arterial Blood Ionized Calcium Urine WBC (Auto) 03/18/20 03/18/20 03/19/20 17:03 23:58 05:24 WBC RBC Hgb Hct MCV MCH RDW Plt Count Lymph % (Auto) [place] % (Auto) Eos % (Auto) Lymph # (Auto) [place] # (Auto) Eos # (Auto) Seg Neutrophils % Seg Neuts % (Manual) Lymphocytes % (Manual) Monocytes % (Manual) Basophils % (Manual) Seg Neutrophils # Seg Neutrophils # Man Lymphocytes # (Manual) Monocytes # (Manual) Eosinophils # (Manual) Basophils # (Manual) PT INR D-Dimer ABG pH POC ABG pCO2 POC ABG pO2 ABG pO2 ABG HCO3 ABG O2 Saturation ABG Base Excess ABG Hemoglobin ABG Oxyhemoglobin ABG Potassium ABG Glucose Oxyhemoglobin Carboxyhemoglobin Sodium Potassium Chloride Carbon Dioxide BUN Creatinine Glucose POC Glucose 128 H 128 H 115 H Calcium Ferritin Total Bilirubin Alkaline Phosphatase Lactate Dehydrogenase Total Creatine Kinase CK-MB (CK-2) Rel Index Troponin T C-Reactive Protein Total Protein Albumin Prealbumin LDL Cholesterol Direct HDL Cholesterol Arterial Blood Glucose Arterial Blood Ionized Calcium Urine WBC (Auto) 11/22/20 11/22/20 11/22/20 08:05 08:05 11:56 WBC 16.8 H RBC 3.36 L Hgb 9.4 L Hct 28.8 L MCV MCH RDW 17.4 H Plt Count 567 H Lymph % (Auto) 7.8 L [place] % (Auto) Eos % (Auto) Lymph # (Auto) [place] # (Auto) 1.2 H Eos # (Auto) Seg Neutrophils % 83.5 H Seg Neuts % (Manual) Lymphocytes % (Manual) Monocytes % (Manual) Basophils % (Manual) Seg Neutrophils # 14.1 H Seg Neutrophils # Man Lymphocytes # (Manual) Monocytes # (Manual) Eosinophils # (Manual) Basophils # (Manual) PT INR D-Dimer ABG pH POC ABG pCO2 POC ABG pO2 ABG pO2 ABG HCO3 ABG O2 Saturation ABG Base Excess ABG Hemoglobin ABG Oxyhemoglobin ABG Potassium ABG Glucose Oxyhemoglobin Carboxyhemoglobin Sodium Potassium Chloride Carbon Dioxide 36 H BUN Creatinine < 0.2 L Glucose 135 H POC Glucose 128 H Calcium Ferritin Total Bilirubin Alkaline Phosphatase Lactate Dehydrogenase Total Creatine Kinase CK-MB (CK-2) Rel Index Troponin T C-Reactive Protein Total Protein Albumin Prealbumin LDL Cholesterol Direct HDL Cholesterol Arterial Blood Glucose Arterial Blood Ionized Calcium Urine WBC (Auto) 03/19/20 03/20/20 03/20/20 23:59 05:12 16:52 WBC RBC Hgb Hct MCV MCH RDW Plt Count Lymph % (Auto) [place] % (Auto) Eos % (Auto) Lymph # (Auto) [place] # (Auto) Eos # (Auto) Seg Neutrophils % Seg Neuts % (Manual) Lymphocytes % (Manual) Monocytes % (Manual) Basophils % (Manual) Seg Neutrophils # Seg Neutrophils # Man Lymphocytes # (Manual) Monocytes # (Manual) Eosinophils # (Manual) Basophils # (Manual) PT INR D-Dimer ABG pH POC ABG pCO2 POC ABG pO2 ABG pO2 ABG HCO3 ABG O2 Saturation ABG Base Excess ABG Hemoglobin ABG Oxyhemoglobin ABG Potassium ABG Glucose Oxyhemoglobin Carboxyhemoglobin Sodium Potassium Chloride Carbon Dioxide BUN Creatinine Glucose POC Glucose 120 H 131 H 124 H Calcium Ferritin Total Bilirubin Alkaline Phosphatase Lactate Dehydrogenase Total Creatine Kinase CK-MB (CK-2) Rel Index Troponin T C-Reactive Protein Total Protein Albumin Prealbumin LDL Cholesterol Direct HDL Cholesterol Arterial Blood Glucose Arterial Blood Ionized Calcium Urine WBC (Auto) 03/20/20 03/21/20 03/21/20 23:35 04:50 07:35 WBC 15.2 H RBC 3.39 L Hgb 9.4 L Hct 29.4 L MCV MCH RDW 17.6 H Plt Count 518 H Lymph % (Auto) [place] % (Auto) Eos % (Auto) Lymph # (Auto) [place] # (Auto) Eos # (Auto) Seg Neutrophils % Seg Neuts % (Manual) 83.0 H Lymphocytes % (Manual) 10.0 L Monocytes % (Manual) Basophils % (Manual) 2.0 H Seg Neutrophils # Seg Neutrophils # Man 12.6 H Lymphocytes # (Manual) Monocytes # (Manual) Eosinophils # (Manual) Basophils # (Manual) 0.3 H PT INR D-Dimer ABG pH POC ABG pCO2 POC ABG pO2 ABG pO2 ABG HCO3 ABG O2 Saturation ABG Base Excess ABG Hemoglobin ABG Oxyhemoglobin ABG Potassium ABG Glucose Oxyhemoglobin Carboxyhemoglobin Sodium Potassium Chloride Carbon Dioxide BUN Creatinine Glucose POC Glucose 125 H 127 H Calcium Ferritin Total Bilirubin Alkaline Phosphatase Lactate Dehydrogenase Total Creatine Kinase CK-MB (CK-2) Rel Index Troponin T C-Reactive Protein Total Protein Albumin Prealbumin LDL Cholesterol Direct HDL Cholesterol Arterial Blood Glucose Arterial Blood Ionized Calcium Urine WBC (Auto) 03/21/20 03/21/20 03/21/20 07:35 11:45 17:22 WBC RBC Hgb Hct MCV MCH RDW Plt Count Lymph % (Auto) [place] % (Auto) Eos % (Auto) Lymph # (Auto) [place] # (Auto) Eos # (Auto) Seg Neutrophils % Seg Neuts % (Manual) Lymphocytes % (Manual) Monocytes % (Manual) Basophils % (Manual) Seg Neutrophils # Seg Neutrophils # Man Lymphocytes # (Manual) Monocytes # (Manual) Eosinophils # (Manual) Basophils # (Manual) PT INR D-Dimer ABG pH POC ABG pCO2 POC ABG pO2 ABG pO2 ABG HCO3 ABG O2 Saturation ABG Base Excess ABG Hemoglobin ABG Oxyhemoglobin ABG Potassium ABG Glucose Oxyhemoglobin Carboxyhemoglobin Sodium 136 L Potassium Chloride 97.7 L Carbon Dioxide 32 H BUN Creatinine < 0.2 L Glucose 103 H POC Glucose 126 H 120 H Calcium Ferritin Total Bilirubin Alkaline Phosphatase Lactate Dehydrogenase Total Creatine Kinase CK-MB (CK-2) Rel Index Troponin T C-Reactive Protein Total Protein Albumin Prealbumin LDL Cholesterol Direct HDL Cholesterol Arterial Blood Glucose Arterial Blood Ionized Calcium Urine WBC (Auto) 03/22/20 03/22/20 03/22/20 05:09 06:34 06:34 WBC 17.5 H RBC 3.52 L Hgb 10.0 L Hct 30.7 L MCV MCH RDW 17.5 H Plt Count 499 H Lymph % (Auto) [place] % (Auto) Eos % (Auto) Lymph # (Auto) [place] # (Auto) Eos # (Auto) Seg Neutrophils % Seg Neuts % (Manual) 80.0 H Lymphocytes % (Manual) 10.0 L Monocytes % (Manual) Basophils % (Manual) Seg Neutrophils # Seg Neutrophils # Man 14.0 H Lymphocytes # (Manual) Monocytes # (Manual) Eosinophils # (Manual) Basophils # (Manual) PT INR D-Dimer ABG pH POC ABG pCO2 POC ABG pO2 ABG pO2 ABG HCO3 ABG O2 Saturation ABG Base Excess ABG Hemoglobin ABG Oxyhemoglobin ABG Potassium ABG Glucose Oxyhemoglobin Carboxyhemoglobin Sodium Potassium Chloride 96.6 L Carbon Dioxide 38 H BUN Creatinine < 0.2 L Glucose 139 H POC Glucose 125 H Calcium Ferritin Total Bilirubin Alkaline Phosphatase Lactate Dehydrogenase Total Creatine Kinase CK-MB (CK-2) Rel Index Troponin T C-Reactive Protein Total Protein Albumin Prealbumin LDL Cholesterol Direct HDL Cholesterol Arterial Blood Glucose Arterial Blood Ionized Calcium Urine WBC (Auto) 03/22/20 03/22/20 03/22/20 11:45 18:00 23:32 WBC RBC Hgb Hct MCV MCH RDW Plt Count Lymph % (Auto) [place] % (Auto) Eos % (Auto) Lymph # (Auto) [place] # (Auto) Eos # (Auto) Seg Neutrophils % Seg Neuts % (Manual) Lymphocytes % (Manual) Monocytes % (Manual) Basophils % (Manual) Seg Neutrophils # Seg Neutrophils # Man Lymphocytes # (Manual) Monocytes # (Manual) Eosinophils # (Manual) Basophils # (Manual) PT INR D-Dimer ABG pH POC ABG pCO2 POC ABG pO2 ABG pO2 ABG HCO3 ABG O2 Saturation ABG Base Excess ABG Hemoglobin ABG Oxyhemoglobin ABG Potassium ABG Glucose Oxyhemoglobin Carboxyhemoglobin Sodium Potassium Chloride Carbon Dioxide BUN Creatinine Glucose POC Glucose 135 H 133 H Calcium Ferritin Total Bilirubin Alkaline Phosphatase Lactate Dehydrogenase Total Creatine Kinase CK-MB (CK-2) Rel Index Troponin T 0.113 H* C-Reactive Protein Total Protein Albumin Prealbumin LDL Cholesterol Direct HDL Cholesterol Arterial Blood Glucose Arterial Blood Ionized Calcium Urine WBC (Auto) 03/23/20 03/23/20 03/23/20 01:47 06:21 07:57 WBC RBC Hgb Hct MCV MCH RDW Plt Count Lymph % (Auto) [place] % (Auto) Eos % (Auto) Lymph # (Auto) [place] # (Auto) Eos # (Auto) Seg Neutrophils % Seg Neuts % (Manual) Lymphocytes % (Manual) Monocytes % (Manual) Basophils % (Manual) Seg Neutrophils # Seg Neutrophils # Man Lymphocytes # (Manual) Monocytes # (Manual) Eosinophils # (Manual) Basophils # (Manual) PT INR D-Dimer ABG pH POC ABG pCO2 POC ABG pO2 ABG pO2 ABG HCO3 ABG O2 Saturation ABG Base Excess ABG Hemoglobin ABG Oxyhemoglobin ABG Potassium ABG Glucose Oxyhemoglobin Carboxyhemoglobin Sodium Potassium Chloride Carbon Dioxide BUN Creatinine Glucose POC Glucose 130 H Calcium Ferritin Total Bilirubin Alkaline Phosphatase Lactate Dehydrogenase Total Creatine Kinase CK-MB (CK-2) Rel Index Troponin T 0.143 H* D 0.105 H* D C-Reactive Protein Total Protein Albumin Prealbumin LDL Cholesterol Direct HDL Cholesterol Arterial Blood Glucose Arterial Blood Ionized Calcium Urine WBC (Auto) 03/23/20 03/24/20 03/24/20 12:02 05:33 07:15 WBC 18.0 H RBC Hgb 11.0 L Hct 34.0 L MCV MCH RDW 17.4 H Plt Count 520 H Lymph % (Auto) [place] % (Auto) Eos % (Auto) Lymph # (Auto) [place] # (Auto) Eos # (Auto) Seg Neutrophils % Seg Neuts % (Manual) 88.0 H Lymphocytes % (Manual) 7.0 L Monocytes % (Manual) Basophils % (Manual) Seg Neutrophils # Seg Neutrophils # Man 15.8 H Lymphocytes # (Manual) Monocytes # (Manual) Eosinophils # (Manual) Basophils # (Manual) PT INR D-Dimer ABG pH POC ABG pCO2 POC ABG pO2 ABG pO2 ABG HCO3 ABG O2 Saturation ABG Base Excess ABG Hemoglobin ABG Oxyhemoglobin ABG Potassium ABG Glucose Oxyhemoglobin Carboxyhemoglobin Sodium Potassium Chloride Carbon Dioxide BUN Creatinine Glucose POC Glucose 137 H 112 H Calcium Ferritin Total Bilirubin Alkaline Phosphatase Lactate Dehydrogenase Total Creatine Kinase CK-MB (CK-2) Rel Index Troponin T C-Reactive Protein Total Protein Albumin Prealbumin LDL Cholesterol Direct HDL Cholesterol Arterial Blood Glucose Arterial Blood Ionized Calcium Urine WBC (Auto) 03/24/20 03/24/20 03/24/20 07:15 11:22 23:30 WBC RBC Hgb Hct MCV MCH RDW Plt Count Lymph % (Auto) [place] % (Auto) Eos % (Auto) Lymph # (Auto) [place] # (Auto) Eos # (Auto) Seg Neutrophils % Seg Neuts % (Manual) Lymphocytes % (Manual) Monocytes % (Manual) Basophils % (Manual) Seg Neutrophils # Seg Neutrophils # Man Lymphocytes # (Manual) Monocytes # (Manual) Eosinophils # (Manual) Basophils # (Manual) PT INR D-Dimer ABG pH POC ABG pCO2 POC ABG pO2 ABG pO2 ABG HCO3 ABG O2 Saturation ABG Base Excess ABG Hemoglobin ABG Oxyhemoglobin ABG Potassium ABG Glucose Oxyhemoglobin Carboxyhemoglobin Sodium Potassium Chloride 96.6 L Carbon Dioxide 38 H BUN Creatinine < 0.2 L Glucose 141 H POC Glucose 130 H 120 H Calcium Ferritin Total Bilirubin Alkaline Phosphatase Lactate Dehydrogenase Total Creatine Kinase CK-MB (CK-2) Rel Index Troponin T C-Reactive Protein Total Protein Albumin Prealbumin LDL Cholesterol Direct HDL Cholesterol Arterial Blood Glucose Arterial Blood Ionized Calcium Urine WBC (Auto) 03/25/20 03/25/20 03/25/20 05:48 17:53 23:18 WBC RBC Hgb Hct MCV MCH RDW Plt Count Lymph % (Auto) [place] % (Auto) Eos % (Auto) Lymph # (Auto) [place] # (Auto) Eos # (Auto) Seg Neutrophils % Seg Neuts % (Manual) Lymphocytes % (Manual) Monocytes % (Manual) Basophils % (Manual) Seg Neutrophils # Seg Neutrophils # Man Lymphocytes # (Manual) Monocytes # (Manual) Eosinophils # (Manual) Basophils # (Manual) PT INR D-Dimer ABG pH POC ABG pCO2 POC ABG pO2 ABG pO2 ABG HCO3 ABG O2 Saturation ABG Base Excess ABG Hemoglobin ABG Oxyhemoglobin ABG Potassium ABG Glucose Oxyhemoglobin Carboxyhemoglobin Sodium Potassium Chloride Carbon Dioxide BUN Creatinine Glucose POC Glucose 124 H 109 H 131 H Calcium Ferritin Total Bilirubin Alkaline Phosphatase Lactate Dehydrogenase Total Creatine Kinase CK-MB (CK-2) Rel Index Troponin T C-Reactive Protein Total Protein Albumin Prealbumin LDL Cholesterol Direct HDL Cholesterol Arterial Blood Glucose Arterial Blood Ionized Calcium Urine WBC (Auto) 03/26/20 03/26/2003/26/20 05:21 08:49 08:49 WBC 19.7 H RBC Hgb 10.7 L Hct 33.5 L MCV MCH 27 L RDW 17.1 H Plt Count 480 H Lymph % (Auto) 5.7 L [place] % (Auto) Eos % (Auto) Lymph # (Auto) 1.1 L [place] # (Auto) 1.2 H Eos # (Auto) Seg Neutrophils % 87.7 H Seg Neuts % (Manual) Lymphocytes % (Manual) Monocytes % (Manual) Basophils % (Manual) Seg Neutrophils # 17.2 H Seg Neutrophils # Man Lymphocytes # (Manual) Monocytes # (Manual) Eosinophils # (Manual) Basophils # (Manual) PT INR D-Dimer ABG pH POC ABG pCO2 POC ABG pO2 ABG pO2 ABG HCO3 ABG O2 Saturation ABG Base Excess ABG Hemoglobin ABG Oxyhemoglobin ABG Potassium ABG Glucose Oxyhemoglobin Carboxyhemoglobin Sodium Potassium Chloride 97.2 L Carbon Dioxide 36 H BUN Creatinine < 0.2 L Glucose 127 H POC Glucose 116 H Calcium Ferritin Total Bilirubin Alkaline Phosphatase Lactate Dehydrogenase Total Creatine Kinase CK-MB (CK-2) Rel Index Troponin T C-Reactive Protein Total Protein Albumin Prealbumin LDL Cholesterol Direct HDL Cholesterol Arterial Blood Glucose Arterial Blood Ionized Calcium Urine WBC (Auto) 03/26/20 03/26/20 03/26/20 11:38 18:44 23:06 WBC RBC Hgb Hct MCV MCH RDW Plt Count Lymph % (Auto) [place] % (Auto) Eos % (Auto) Lymph # (Auto) [place] # (Auto) Eos # (Auto) Seg Neutrophils % Seg Neuts % (Manual) Lymphocytes % (Manual) Monocytes % (Manual) Basophils % (Manual) Seg Neutrophils # Seg Neutrophils # Man Lymphocytes # (Manual) Monocytes # (Manual) Eosinophils # (Manual) Basophils # (Manual) PT INR D-Dimer ABG pH POC ABG pCO2 POC ABG pO2 ABG pO2 ABG HCO3 ABG O2 Saturation ABG Base Excess ABG Hemoglobin ABG Oxyhemoglobin ABG Potassium ABG Glucose Oxyhemoglobin Carboxyhemoglobin Sodium Potassium Chloride Carbon Dioxide BUN Creatinine Glucose POC Glucose 120 H 111 H 134 H Calcium Ferritin Total Bilirubin Alkaline Phosphatase Lactate Dehydrogenase Total Creatine Kinase CK-MB (CK-2) Rel Index Troponin T C-Reactive Protein Total Protein Albumin Prealbumin LDL Cholesterol Direct HDL Cholesterol Arterial Blood Glucose Arterial Blood Ionized Calcium Urine WBC (Auto) 03/27/20 03/27/20 03/27/20 05:41 05:59 05:59 WBC 18.6 H RBC Hgb 10.1 L Hct 31.4 L MCV MCH RDW 17.2 H Plt Count Lymph % (Auto) 8.0 L [place] % (Auto) Eos % (Auto) Lymph # (Auto) [place] # (Auto) 1.2 H Eos # (Auto) Seg Neutrophils % 84.7 H Seg Neuts % (Manual) Lymphocytes % (Manual) Monocytes % (Manual) Basophils % (Manual) Seg Neutrophils # 15.8 H Seg Neutrophils # Man Lymphocytes # (Manual) Monocytes # (Manual) Eosinophils # (Manual) Basophils # (Manual) PT INR D-Dimer ABG pH POC ABG pCO2 POC ABG pO2 ABG pO2 ABG HCO3 ABG O2 Saturation ABG Base Excess ABG Hemoglobin ABG Oxyhemoglobin ABG Potassium ABG Glucose Oxyhemoglobin Carboxyhemoglobin Sodium Potassium Chloride Carbon Dioxide 34 H BUN Creatinine < 0.2 L Glucose 127 H POC Glucose 129 H Calcium Ferritin Total Bilirubin Alkaline Phosphatase Lactate Dehydrogenase Total Creatine Kinase CK-MB (CK-2) Rel Index Troponin T C-Reactive Protein Total Protein Albumin Prealbumin LDL Cholesterol Direct HDL Cholesterol Arterial Blood Glucose Arterial Blood Ionized Calcium Urine WBC (Auto) 03/27/20 03/27/20 03/28/20 17:28 23:22 05:23 WBC RBC Hgb Hct MCV MCH RDW Plt Count Lymph % (Auto) [place] % (Auto) Eos % (Auto) Lymph # (Auto) [place] # (Auto) Eos # (Auto) Seg Neutrophils % Seg Neuts % (Manual) Lymphocytes % (Manual) Monocytes % (Manual) Basophils % (Manual) Seg Neutrophils # Seg Neutrophils # Man Lymphocytes # (Manual) Monocytes # (Manual) Eosinophils # (Manual) Basophils # (Manual) PT INR D-Dimer ABG pH POC ABG pCO2 POC ABG pO2 ABG pO2 ABG HCO3 ABG O2 Saturation ABG Base Excess ABG Hemoglobin ABG Oxyhemoglobin ABG Potassium ABG Glucose Oxyhemoglobin Carboxyhemoglobin Sodium Potassium Chloride Carbon Dioxide BUN Creatinine Glucose POC Glucose 108 H 119 H 129 H Calcium Ferritin Total Bilirubin Alkaline Phosphatase Lactate Dehydrogenase Total Creatine Kinase CK-MB (CK-2) Rel Index Troponin T C-Reactive Protein Total Protein Albumin Prealbumin LDL Cholesterol Direct HDL Cholesterol Arterial Blood Glucose Arterial Blood Ionized Calcium Urine WBC (Auto) 03/28/20 03/28/20 03/28/20 10:28 10:28 11:36 WBC 23.6 H RBC 3.62 L Hgb 10.0 L Hct 30.8 L MCV MCH RDW 16.4 H Plt Count Lymph % (Auto) [place] % (Auto) Eos % (Auto) Lymph # (Auto) [place] # (Auto) Eos # (Auto) Seg Neutrophils % Seg Neuts % (Manual) 89.0 H Lymphocytes % (Manual) 5.0 L Monocytes % (Manual) Basophils % (Manual) Seg Neutrophils # Seg Neutrophils # Man 21.0 H Lymphocytes # (Manual) Monocytes # (Manual) 1.2 H Eosinophils # (Manual) Basophils # (Manual) 0.2 H PT INR D-Dimer ABG pH POC ABG pCO2 POC ABG pO2 ABG pO2 ABG HCO3 ABG O2 Saturation ABG Base Excess ABG Hemoglobin ABG Oxyhemoglobin ABG Potassium ABG Glucose Oxyhemoglobin Carboxyhemoglobin Sodium 134 L Potassium Chloride 94.2 L Carbon Dioxide 35 H BUN Creatinine < 0.2 L Glucose 134 H POC Glucose Calcium Ferritin Total Bilirubin Alkaline Phosphatase Lactate Dehydrogenase Total Creatine Kinase CK-MB (CK-2) Rel Index Troponin T C-Reactive Protein Total Protein Albumin Prealbumin LDL Cholesterol Direct HDL Cholesterol Arterial Blood Glucose Arterial Blood Ionized Calcium Urine WBC (Auto) 39.0 H 03/28/20 03/28/20 03/28/20 11:51 17:08 17:17 WBC RBC Hgb Hct MCV MCH RDW Plt Count Lymph % (Auto) [place] % (Auto) Eos % (Auto) Lymph # (Auto) [place] # (Auto) Eos # (Auto) Seg Neutrophils % Seg Neuts % (Manual) Lymphocytes % (Manual) Monocytes % (Manual) Basophils % (Manual) Seg Neutrophils # Seg Neutrophils # Man Lymphocytes # (Manual) Monocytes # (Manual) Eosinophils # (Manual) Basophils # (Manual) PT INR D-Dimer ABG pH POC ABG pCO2 POC ABG pO2 ABG pO2 ABG HCO3 ABG O2 Saturation ABG Base Excess ABG Hemoglobin ABG Oxyhemoglobin ABG Potassium ABG Glucose Oxyhemoglobin Carboxyhemoglobin Sodium Potassium Chloride Carbon Dioxide BUN Creatinine Glucose POC Glucose 123 H 112 H Calcium Ferritin Total Bilirubin Alkaline Phosphatase Lactate Dehydrogenase Total Creatine Kinase 47 L CK-MB (CK-2) Rel Index 4.6 H Troponin T 0.090 H C-Reactive Protein Total Protein Albumin Prealbumin LDL Cholesterol Direct HDL Cholesterol Arterial Blood Glucose Arterial Blood Ionized Calcium Urine WBC (Auto) 03/28/20 03/29/20 03/29/20 23:22 05:22 10:58 WBC RBC Hgb Hct MCV MCH RDW Plt Count Lymph % (Auto) [place] % (Auto) Eos % (Auto) Lymph # (Auto) [place] # (Auto) Eos # (Auto) Seg Neutrophils % Seg Neuts % (Manual) Lymphocytes % (Manual) Monocytes % (Manual) Basophils % (Manual) Seg Neutrophils # Seg Neutrophils # Man Lymphocytes # (Manual) Monocytes # (Manual) Eosinophils # (Manual) Basophils # (Manual) PT INR D-Dimer ABG pH POC ABG pCO2 POC ABG pO2 ABG pO2 ABG HCO3 ABG O2 Saturation ABG Base Excess ABG Hemoglobin ABG Oxyhemoglobin ABG Potassium ABG Glucose Oxyhemoglobin Carboxyhemoglobin Sodium Potassium Chloride Carbon Dioxide BUN Creatinine Glucose POC Glucose 122 H 116 H 133 H Calcium Ferritin Total Bilirubin Alkaline Phosphatase Lactate Dehydrogenase Total Creatine Kinase CK-MB (CK-2) Rel Index Troponin T C-Reactive Protein Total Protein Albumin Prealbumin LDL Cholesterol Direct HDL Cholesterol Arterial Blood Glucose Arterial Blood Ionized Calcium Urine WBC (Auto) 03/29/20 03/29/20 03/30/20 17:18 23:14 04:57 WBC RBC Hgb Hct MCV MCH RDW Plt Count Lymph % (Auto) [place] % (Auto) Eos % (Auto) Lymph # (Auto) [place] # (Auto) Eos # (Auto) Seg Neutrophils % Seg Neuts % (Manual) Lymphocytes % (Manual) Monocytes % (Manual) Basophils % (Manual) Seg Neutrophils # Seg Neutrophils # Man Lymphocytes # (Manual) Monocytes # (Manual) Eosinophils # (Manual) Basophils # (Manual) PT INR D-Dimer ABG pH POC ABG pCO2 POC ABG pO2 ABG pO2 ABG HCO3 ABG O2 Saturation ABG Base Excess ABG Hemoglobin ABG Oxyhemoglobin ABG Potassium ABG Glucose Oxyhemoglobin Carboxyhemoglobin Sodium Potassium Chloride Carbon Dioxide BUN Creatinine Glucose POC Glucose 111 H 114 H 130 H Calcium Ferritin Total Bilirubin Alkaline Phosphatase Lactate Dehydrogenase Total Creatine Kinase CK-MB (CK-2) Rel Index Troponin T C-Reactive Protein Total Protein Albumin Prealbumin LDL Cholesterol Direct HDL Cholesterol Arterial Blood Glucose Arterial Blood Ionized Calcium Urine WBC (Auto) 03/30/20 03/30/20 03/30/20 11:38 14:47 14:47 WBC 19.9 H RBC Hgb 10.9 L Hct 34.4 L MCV MCH 27 L RDW 16.5 H Plt Count 441 H Lymph % (Auto) 6.4 L [place] % (Auto) Eos % (Auto) Lymph # (Auto) [place] # (Auto) 1.4 H Eos # (Auto) Seg Neutrophils % 86.1 H Seg Neuts % (Manual) Lymphocytes % (Manual) Monocytes % (Manual) Basophils % (Manual) Seg Neutrophils # 17.1 H Seg Neutrophils # Man Lymphocytes # (Manual) Monocytes # (Manual) Eosinophils # (Manual) Basophils # (Manual) PT INR D-Dimer ABG pH POC ABG pCO2 POC ABG pO2 ABG pO2 ABG HCO3 ABG O2 Saturation ABG Base Excess ABG Hemoglobin ABG Oxyhemoglobin ABG Potassium ABG Glucose Oxyhemoglobin Carboxyhemoglobin Sodium 133 L Potassium Chloride 94.6 L Carbon Dioxide 33 H BUN Creatinine < 0.2 L Glucose 194 H POC Glucose 139 H Calcium Ferritin Total Bilirubin Alkaline Phosphatase Lactate Dehydrogenase Total Creatine Kinase CK-MB (CK-2) Rel Index Troponin T C-Reactive Protein Total Protein Albumin 2.8 L Prealbumin LDL Cholesterol Direct HDL Cholesterol Arterial Blood Glucose Arterial Blood Ionized Calcium Urine WBC (Auto) 03/30/20 03/31/20 03/31/20 17:07 05:02 15:21 WBC RBC Hgb Hct MCV MCH RDW Plt Count Lymph % (Auto) [place] % (Auto) Eos % (Auto) Lymph # (Auto) [place] # (Auto) Eos # (Auto) Seg Neutrophils % Seg Neuts % (Manual) Lymphocytes % (Manual) Monocytes % (Manual) Basophils % (Manual) Seg Neutrophils # Seg Neutrophils # Man Lymphocytes # (Manual) Monocytes # (Manual) Eosinophils # (Manual) Basophils # (Manual) PT INR D-Dimer ABG pH POC ABG pCO2 POC ABG pO2 ABG pO2 ABG HCO3 ABG O2 Saturation ABG Base Excess ABG Hemoglobin ABG Oxyhemoglobin ABG Potassium ABG Glucose Oxyhemoglobin Carboxyhemoglobin Sodium Potassium Chloride Carbon Dioxide BUN Creatinine Glucose POC Glucose 163 H 108 H 110 H Calcium Ferritin Total Bilirubin Alkaline Phosphatase Lactate Dehydrogenase Total Creatine Kinase CK-MB (CK-2) Rel Index Troponin T C-Reactive Protein Total Protein Albumin Prealbumin LDL Cholesterol Direct HDL Cholesterol Arterial Blood Glucose Arterial Blood Ionized Calcium Urine WBC (Auto) 03/31/20 03/31/20 04/01/20 17:58 23:19 05:09 WBC RBC Hgb Hct MCV MCH RDW Plt Count Lymph % (Auto) [place] % (Auto) Eos % (Auto) Lymph # (Auto) [place] # (Auto) Eos # (Auto) Seg Neutrophils % Seg Neuts % (Manual) Lymphocytes % (Manual) Monocytes % (Manual) Basophils % (Manual) Seg Neutrophils # Seg Neutrophils # Man Lymphocytes # (Manual) Monocytes # (Manual) Eosinophils # (Manual) Basophils # (Manual) PT INR D-Dimer ABG pH POC ABG pCO2 POC ABG pO2 ABG pO2 ABG HCO3 ABG O2 Saturation ABG Base Excess ABG Hemoglobin ABG Oxyhemoglobin ABG Potassium ABG Glucose Oxyhemoglobin Carboxyhemoglobin Sodium Potassium Chloride Carbon Dioxide BUN Creatinine Glucose POC Glucose 110 H 131 H 124 H Calcium Ferritin Total Bilirubin Alkaline Phosphatase Lactate Dehydrogenase Total Creatine Kinase CK-MB (CK-2) Rel Index Troponin T C-Reactive Protein Total Protein Albumin Prealbumin LDL Cholesterol Direct HDL Cholesterol Arterial Blood Glucose Arterial Blood Ionized Calcium Urine WBC (Auto) 04/01/20 04/01/20 04/01/20 11:50 17:01 23:21 WBC RBC Hgb Hct MCV MCH RDW Plt Count Lymph % (Auto) [place] % (Auto) Eos % (Auto) Lymph # (Auto) [place] # (Auto) Eos # (Auto) Seg Neutrophils % Seg Neuts % (Manual) Lymphocytes % (Manual) Monocytes % (Manual) Basophils % (Manual) Seg Neutrophils # Seg Neutrophils # Man Lymphocytes # (Manual) Monocytes # (Manual) Eosinophils # (Manual) Basophils # (Manual) PT INR D-Dimer ABG pH POC ABG pCO2 POC ABG pO2 ABG pO2 ABG HCO3 ABG O2 Saturation ABG Base Excess ABG Hemoglobin ABG Oxyhemoglobin ABG Potassium ABG Glucose Oxyhemoglobin Carboxyhemoglobin Sodium Potassium Chloride Carbon Dioxide BUN Creatinine Glucose POC Glucose 136 H 115 H 124 H Calcium Ferritin Total Bilirubin Alkaline Phosphatase Lactate Dehydrogenase Total Creatine Kinase CK-MB (CK-2) Rel Index Troponin T C-Reactive Protein Total Protein Albumin Prealbumin LDL Cholesterol Direct HDL Cholesterol Arterial Blood Glucose Arterial Blood Ionized Calcium Urine WBC (Auto) 04/02/20 04/02/20 04/02/20 05:27 11:58 17:58 WBC RBC Hgb Hct MCV MCH RDW Plt Count Lymph % (Auto) [place] % (Auto) Eos % (Auto) Lymph # (Auto) [place] # (Auto) Eos # (Auto) Seg Neutrophils % Seg Neuts % (Manual) Lymphocytes % (Manual) Monocytes % (Manual) Basophils % (Manual) Seg Neutrophils # Seg Neutrophils # Man Lymphocytes # (Manual) Monocytes # (Manual) Eosinophils # (Manual) Basophils # (Manual) PT INR D-Dimer ABG pH POC ABG pCO2 POC ABG pO2 ABG pO2 ABG HCO3 ABG O2 Saturation ABG Base Excess ABG Hemoglobin ABG Oxyhemoglobin ABG Potassium ABG Glucose Oxyhemoglobin Carboxyhemoglobin Sodium Potassium Chloride Carbon Dioxide BUN Creatinine Glucose POC Glucose 117 H 133 H 122 H Calcium Ferritin Total Bilirubin Alkaline Phosphatase Lactate Dehydrogenase Total Creatine Kinase CK-MB (CK-2) Rel Index Troponin T C-Reactive Protein Total Protein Albumin Prealbumin LDL Cholesterol Direct HDL Cholesterol Arterial Blood Glucose Arterial Blood Ionized Calcium Urine WBC (Auto) 04/02/20 04/03/20 04/03/20 23:12 05:11 11:11 WBC RBC Hgb Hct MCV MCH RDW Plt Count Lymph % (Auto) [place] % (Auto) Eos % (Auto) Lymph # (Auto) [place] # (Auto) Eos # (Auto) Seg Neutrophils % Seg Neuts % (Manual) Lymphocytes % (Manual) Monocytes % (Manual) Basophils % (Manual) Seg Neutrophils # Seg Neutrophils # Man Lymphocytes # (Manual) Monocytes # (Manual) Eosinophils # (Manual) Basophils # (Manual) PT INR D-Dimer ABG pH POC ABG pCO2 POC ABG pO2 ABG pO2 ABG HCO3 ABG O2 Saturation ABG Base Excess ABG Hemoglobin ABG Oxyhemoglobin ABG Potassium ABG Glucose Oxyhemoglobin Carboxyhemoglobin Sodium Potassium Chloride Carbon Dioxide BUN Creatinine Glucose POC Glucose 130 H 139 H 136 H Calcium Ferritin Total Bilirubin Alkaline Phosphatase Lactate Dehydrogenase Total Creatine Kinase CK-MB (CK-2) Rel Index Troponin T C-Reactive Protein Total Protein Albumin Prealbumin LDL Cholesterol Direct HDL Cholesterol Arterial Blood Glucose Arterial Blood Ionized Calcium Urine WBC (Auto) 04/03/20 04/03/20 04/04/20 16:51 23:25 05:29 WBC RBC Hgb Hct MCV MCH RDW Plt Count Lymph % (Auto) [place] % (Auto) Eos % (Auto) Lymph # (Auto) [place] # (Auto) Eos # (Auto) Seg Neutrophils % Seg Neuts % (Manual) Lymphocytes % (Manual) Monocytes % (Manual) Basophils % (Manual) Seg Neutrophils # Seg Neutrophils # Man Lymphocytes # (Manual) Monocytes # (Manual) Eosinophils # (Manual) Basophils # (Manual) PT INR D-Dimer ABG pH POC ABG pCO2 POC ABG pO2 ABG pO2 ABG HCO3 ABG O2 Saturation ABG Base Excess ABG Hemoglobin ABG Oxyhemoglobin ABG Potassium ABG Glucose Oxyhemoglobin Carboxyhemoglobin Sodium Potassium Chloride Carbon Dioxide BUN Creatinine Glucose POC Glucose 118 H 111 H 126 H Calcium Ferritin Total Bilirubin Alkaline Phosphatase Lactate Dehydrogenase Total Creatine Kinase CK-MB (CK-2) Rel Index Troponin T C-Reactive Protein Total Protein Albumin Prealbumin LDL Cholesterol Direct HDL Cholesterol Arterial Blood Glucose Arterial Blood Ionized Calcium Urine WBC (Auto) 04/04/20 04/04/20 04/04/20 11:47 17:41 23:05 WBC RBC Hgb Hct MCV MCH RDW Plt Count Lymph % (Auto) [place] % (Auto) Eos % (Auto) Lymph # (Auto) [place] # (Auto) Eos # (Auto) Seg Neutrophils % Seg Neuts % (Manual) Lymphocytes % (Manual) Monocytes % (Manual) Basophils % (Manual) Seg Neutrophils # Seg Neutrophils # Man Lymphocytes # (Manual) Monocytes # (Manual) Eosinophils # (Manual) Basophils # (Manual) PT INR D-Dimer ABG pH POC ABG pCO2 POC ABG pO2 ABG pO2 ABG HCO3 ABG O2 Saturation ABG Base Excess ABG Hemoglobin ABG Oxyhemoglobin ABG Potassium ABG Glucose Oxyhemoglobin Carboxyhemoglobin Sodium Potassium Chloride Carbon Dioxide BUN Creatinine Glucose POC Glucose 123 H 120 H 119 H Calcium Ferritin Total Bilirubin Alkaline Phosphatase Lactate Dehydrogenase Total Creatine Kinase CK-MB (CK-2) Rel Index Troponin T C-Reactive Protein Total Protein Albumin Prealbumin LDL Cholesterol Direct HDL Cholesterol Arterial Blood Glucose Arterial Blood Ionized Calcium Urine WBC (Auto) 04/05/20 04/05/20 04/05/20 05:14 12:16 18:48 WBC RBC Hgb Hct MCV MCH RDW Plt Count Lymph % (Auto) [place] % (Auto) Eos % (Auto) Lymph # (Auto) [place] # (Auto) Eos # (Auto) Seg Neutrophils % Seg Neuts % (Manual) Lymphocytes % (Manual) Monocytes % (Manual) Basophils % (Manual) Seg Neutrophils # Seg Neutrophils # Man Lymphocytes # (Manual) Monocytes # (Manual) Eosinophils # (Manual) Basophils # (Manual) PT INR D-Dimer ABG pH POC ABG pCO2 POC ABG pO2 ABG pO2 ABG HCO3 ABG O2 Saturation ABG Base Excess ABG Hemoglobin ABG Oxyhemoglobin ABG Potassium ABG Glucose Oxyhemoglobin Carboxyhemoglobin Sodium Potassium Chloride Carbon Dioxide BUN Creatinine Glucose POC Glucose 123 H 148 H 106 H Calcium Ferritin Total Bilirubin Alkaline Phosphatase Lactate Dehydrogenase Total Creatine Kinase CK-MB (CK-2) Rel Index Troponin T C-Reactive Protein Total Protein Albumin Prealbumin LDL Cholesterol Direct HDL Cholesterol Arterial Blood Glucose Arterial Blood Ionized Calcium Urine WBC (Auto) 04/06/20 04/06/20 04/06/20 00:47 03:26 08:24 WBC RBC Hgb Hct MCV MCH RDW Plt Count Lymph % (Auto) [place] % (Auto) Eos % (Auto) Lymph # (Auto) [place] # (Auto) Eos # (Auto) Seg Neutrophils % Seg Neuts % (Manual) Lymphocytes % (Manual) Monocytes % (Manual) Basophils % (Manual) Seg Neutrophils # Seg Neutrophils # Man Lymphocytes # (Manual) Monocytes # (Manual) Eosinophils # (Manual) Basophils # (Manual) PT INR D-Dimer ABG pH POC ABG pCO2 POC ABG pO2 ABG pO2 ABG HCO3 ABG O2 Saturation ABG Base Excess ABG Hemoglobin ABG Oxyhemoglobin ABG Potassium ABG Glucose Oxyhemoglobin Carboxyhemoglobin Sodium Potassium Chloride Carbon Dioxide BUN Creatinine Glucose POC Glucose 129 H 134 H 131 H Calcium Ferritin Total Bilirubin Alkaline Phosphatase Lactate Dehydrogenase Total Creatine Kinase CK-MB (CK-2) Rel Index Troponin T C-Reactive Protein Total Protein Albumin Prealbumin LDL Cholesterol Direct HDL Cholesterol Arterial Blood Glucose Arterial Blood Ionized Calcium Urine WBC (Auto) 04/06/20 04/06/20 04/06/20 11:16 16:27 23:01 WBC RBC Hgb Hct MCV MCH RDW Plt Count Lymph % (Auto) [place] % (Auto) Eos % (Auto) Lymph # (Auto) [place] # (Auto) Eos # (Auto) Seg Neutrophils % Seg Neuts % (Manual) Lymphocytes % (Manual) Monocytes % (Manual) Basophils % (Manual) Seg Neutrophils # Seg Neutrophils # Man Lymphocytes # (Manual) Monocytes # (Manual) Eosinophils # (Manual) Basophils # (Manual) PT INR D-Dimer ABG pH POC ABG pCO2 POC ABG pO2 ABG pO2 ABG HCO3 ABG O2 Saturation ABG Base Excess ABG Hemoglobin ABG Oxyhemoglobin ABG Potassium ABG Glucose Oxyhemoglobin Carboxyhemoglobin Sodium Potassium Chloride Carbon Dioxide BUN Creatinine Glucose POC Glucose 131 H 107 H 125 H Calcium Ferritin Total Bilirubin Alkaline Phosphatase Lactate Dehydrogenase Total Creatine Kinase CK-MB (CK-2) Rel Index Troponin T C-Reactive Protein Total Protein Albumin Prealbumin LDL Cholesterol Direct HDL Cholesterol Arterial Blood Glucose Arterial Blood Ionized Calcium Urine WBC (Auto) 04/07/20 04/07/20 04/07/20 05:24 12:41 17:40 WBC RBC Hgb Hct MCV MCH RDW Plt Count Lymph % (Auto) [place] % (Auto) Eos % (Auto) Lymph # (Auto) [place] # (Auto) Eos # (Auto) Seg Neutrophils % Seg Neuts % (Manual) Lymphocytes % (Manual) Monocytes % (Manual) Basophils % (Manual) Seg Neutrophils # Seg Neutrophils # Man Lymphocytes # (Manual) Monocytes # (Manual) Eosinophils # (Manual) Basophils # (Manual) PT INR D-Dimer ABG pH POC ABG pCO2 POC ABG pO2 ABG pO2 ABG HCO3 ABG O2 Saturation ABG Base Excess ABG Hemoglobin ABG Oxyhemoglobin ABG Potassium ABG Glucose Oxyhemoglobin Carboxyhemoglobin Sodium Potassium Chloride Carbon Dioxide BUN Creatinine Glucose POC Glucose 125 H 145 H 123 H Calcium Ferritin Total Bilirubin Alkaline Phosphatase Lactate Dehydrogenase Total Creatine Kinase CK-MB (CK-2) Rel Index Troponin T C-Reactive Protein Total Protein Albumin Prealbumin LDL Cholesterol Direct HDL Cholesterol Arterial Blood Glucose Arterial Blood Ionized Calcium Urine WBC (Auto) 04/07/20 04/08/20 04/08/20 23:22 05:40 11:29 WBC RBC Hgb Hct MCV MCH RDW Plt Count Lymph % (Auto) [place] % (Auto) Eos % (Auto) Lymph # (Auto) [place] # (Auto) Eos # (Auto) Seg Neutrophils % Seg Neuts % (Manual) Lymphocytes % (Manual) Monocytes % (Manual) Basophils % (Manual) Seg Neutrophils # Seg Neutrophils # Man Lymphocytes # (Manual) Monocytes # (Manual) Eosinophils # (Manual) Basophils # (Manual) PT INR D-Dimer ABG pH POC ABG pCO2 POC ABG pO2 ABG pO2 ABG HCO3 ABG O2 Saturation ABG Base Excess ABG Hemoglobin ABG Oxyhemoglobin ABG Potassium ABG Glucose Oxyhemoglobin Carboxyhemoglobin Sodium Potassium Chloride Carbon Dioxide BUN Creatinine Glucose POC Glucose 133 H 125 H 116 H Calcium Ferritin Total Bilirubin Alkaline Phosphatase Lactate Dehydrogenase Total Creatine Kinase CK-MB (CK-2) Rel Index Troponin T C-Reactive Protein Total Protein Albumin Prealbumin LDL Cholesterol Direct HDL Cholesterol Arterial Blood Glucose Arterial Blood Ionized Calcium Urine WBC (Auto) 04/08/20 04/09/20 04/09/20 17:43 05:47 12:22 WBC RBC Hgb Hct MCV MCH RDW Plt Count Lymph % (Auto) [place] % (Auto) Eos % (Auto) Lymph # (Auto) [place] # (Auto) Eos # (Auto) Seg Neutrophils % Seg Neuts % (Manual) Lymphocytes % (Manual) Monocytes % (Manual) Basophils % (Manual) Seg Neutrophils # Seg Neutrophils # Man Lymphocytes # (Manual) Monocytes # (Manual) Eosinophils # (Manual) Basophils # (Manual) PT INR D-Dimer ABG pH POC ABG pCO2 POC ABG pO2 ABG pO2 ABG HCO3 ABG O2 Saturation ABG Base Excess ABG Hemoglobin ABG Oxyhemoglobin ABG Potassium ABG Glucose Oxyhemoglobin Carboxyhemoglobin Sodium Potassium Chloride Carbon Dioxide BUN Creatinine Glucose POC Glucose 123 H 108 H 116 H Calcium Ferritin Total Bilirubin Alkaline Phosphatase Lactate Dehydrogenase Total Creatine Kinase CK-MB (CK-2) Rel Index Troponin T C-Reactive Protein Total Protein Albumin Prealbumin LDL Cholesterol Direct HDL Cholesterol Arterial Blood Glucose Arterial Blood Ionized Calcium Urine WBC (Auto) 04/09/20 04/09/20 04/10/20 17:24 23:52 06:10 WBC RBC Hgb Hct MCV MCH RDW Plt Count Lymph % (Auto) [place] % (Auto) Eos % (Auto) Lymph # (Auto) [place] # (Auto) Eos # (Auto) Seg Neutrophils % Seg Neuts % (Manual) Lymphocytes % (Manual) Monocytes % (Manual) Basophils % (Manual) Seg Neutrophils # Seg Neutrophils # Man Lymphocytes # (Manual) Monocytes # (Manual) Eosinophils # (Manual) Basophils # (Manual) PT INR D-Dimer ABG pH POC ABG pCO2 POC ABG pO2 ABG pO2 ABG HCO3 ABG O2 Saturation ABG Base Excess ABG Hemoglobin ABG Oxyhemoglobin ABG Potassium ABG Glucose Oxyhemoglobin Carboxyhemoglobin Sodium Potassium Chloride Carbon Dioxide BUN Creatinine Glucose POC Glucose 108 H 126 H 122 H Calcium Ferritin Total Bilirubin Alkaline Phosphatase Lactate Dehydrogenase Total Creatine Kinase CK-MB (CK-2) Rel Index Troponin T C-Reactive Protein Total Protein Albumin Prealbumin LDL Cholesterol Direct HDL Cholesterol Arterial Blood Glucose Arterial Blood Ionized Calcium Urine WBC (Auto) 04/10/20 04/10/20 04/10/20 11:27 18:11 23:24 WBC RBC Hgb Hct MCV MCH RDW Plt Count Lymph % (Auto) [place] % (Auto) Eos % (Auto) Lymph # (Auto) [place] # (Auto) Eos # (Auto) Seg Neutrophils % Seg Neuts % (Manual) Lymphocytes % (Manual) Monocytes % (Manual) Basophils % (Manual) Seg Neutrophils # Seg Neutrophils # Man Lymphocytes # (Manual) Monocytes # (Manual) Eosinophils # (Manual) Basophils # (Manual) PT INR D-Dimer ABG pH POC ABG pCO2 POC ABG pO2 ABG pO2 ABG HCO3 ABG O2 Saturation ABG Base Excess ABG Hemoglobin ABG Oxyhemoglobin ABG Potassium ABG Glucose Oxyhemoglobin Carboxyhemoglobin Sodium Potassium Chloride Carbon Dioxide BUN Creatinine Glucose POC Glucose 129 H 125 H 107 H Calcium Ferritin Total Bilirubin Alkaline Phosphatase Lactate Dehydrogenase Total Creatine Kinase CK-MB (CK-2) Rel Index Troponin T C-Reactive Protein Total Protein Albumin Prealbumin LDL Cholesterol Direct HDL Cholesterol Arterial Blood Glucose Arterial Blood Ionized Calcium Urine WBC (Auto) 04/11/20 04/11/20 04/11/20 05:28 11:46 23:49 WBC RBC Hgb Hct MCV MCH RDW Plt Count Lymph % (Auto) [place] % (Auto) Eos % (Auto) Lymph # (Auto) [place] # (Auto) Eos # (Auto) Seg Neutrophils % Seg Neuts % (Manual) Lymphocytes % (Manual) Monocytes % (Manual) Basophils % (Manual) Seg Neutrophils # Seg Neutrophils # Man Lymphocytes # (Manual) Monocytes # (Manual) Eosinophils # (Manual) Basophils # (Manual) PT INR D-Dimer ABG pH POC ABG pCO2 POC ABG pO2 ABG pO2 ABG HCO3 ABG O2 Saturation ABG Base Excess ABG Hemoglobin ABG Oxyhemoglobin ABG Potassium ABG Glucose Oxyhemoglobin Carboxyhemoglobin Sodium Potassium Chloride Carbon Dioxide BUN Creatinine Glucose POC Glucose 122 H 122 H 116 H Calcium Ferritin Total Bilirubin Alkaline Phosphatase Lactate Dehydrogenase Total Creatine Kinase CK-MB (CK-2) Rel Index Troponin T C-Reactive Protein Total Protein Albumin Prealbumin LDL Cholesterol Direct HDL Cholesterol Arterial Blood Glucose Arterial Blood Ionized Calcium Urine WBC (Auto) 04/12/20 04/12/2020 09:07 09:07 11:39 WBC 13.1 H RBC 3.59 L Hgb 9.5 L Hct 29.8 L MCV 83 L MCH 26 L RDW 16.6 H Plt Count 591 H Lymph % (Auto) [place] % (Auto) Eos % (Auto) Lymph # (Auto) [place] # (Auto) Eos # (Auto) Seg Neutrophils % Seg Neuts % (Manual) 86.0 H Lymphocytes % (Manual) 7.0 L Monocytes % (Manual) Basophils % (Manual) Seg Neutrophils # Seg Neutrophils # Man 11.3 H Lymphocytes # (Manual) 0.9 L Monocytes # (Manual) Eosinophils # (Manual) Basophils # (Manual) PT INR D-Dimer ABG pH POC ABG pCO2 POC ABG pO2 ABG pO2 ABG HCO3 ABG O2 Saturation ABG Base Excess ABG Hemoglobin ABG Oxyhemoglobin ABG Potassium ABG Glucose Oxyhemoglobin Carboxyhemoglobin Sodium Potassium Chloride Carbon Dioxide 36 H BUN Creatinine < 0.2 L Glucose 132 H POC Glucose 136 H Calcium Ferritin Total Bilirubin Alkaline Phosphatase Lactate Dehydrogenase Total Creatine Kinase CK-MB (CK-2) Rel Index Troponin T C-Reactive Protein Total Protein Albumin 2.7 L Prealbumin LDL Cholesterol Direct HDL Cholesterol Arterial Blood Glucose Arterial Blood Ionized Calcium Urine WBC (Auto) 04/12/20 04/12/20 04/13/20 18:13 23:07 05:45 WBC RBC Hgb Hct MCV MCH RDW Plt Count Lymph % (Auto) [place] % (Auto) Eos % (Auto) Lymph # (Auto) [place] # (Auto) Eos # (Auto) Seg Neutrophils % Seg Neuts % (Manual) Lymphocytes % (Manual) Monocytes % (Manual) Basophils % (Manual) Seg Neutrophils # Seg Neutrophils # Man Lymphocytes # (Manual) Monocytes # (Manual) Eosinophils # (Manual) Basophils # (Manual) PT INR D-Dimer ABG pH POC ABG pCO2 POC ABG pO2 ABG pO2 ABG HCO3 ABG O2 Saturation ABG Base Excess ABG Hemoglobin ABG Oxyhemoglobin ABG Potassium ABG Glucose Oxyhemoglobin Carboxyhemoglobin Sodium Potassium Chloride Carbon Dioxide BUN Creatinine Glucose POC Glucose 107 H 106 H 125 H Calcium Ferritin Total Bilirubin Alkaline Phosphatase Lactate Dehydrogenase Total Creatine Kinase CK-MB (CK-2) Rel Index Troponin T C-Reactive Protein Total Protein Albumin Prealbumin LDL Cholesterol Direct HDL Cholesterol Arterial Blood Glucose Arterial Blood Ionized Calcium Urine WBC (Auto) 04/13/20 04/13/20 04/13/20 11:18 17:56 23:33 WBC RBC Hgb Hct MCV MCH RDW Plt Count Lymph % (Auto) [place] % (Auto) Eos % (Auto) Lymph # (Auto) [place] # (Auto) Eos # (Auto) Seg Neutrophils % Seg Neuts % (Manual) Lymphocytes % (Manual) Monocytes % (Manual) Basophils % (Manual) Seg Neutrophils # Seg Neutrophils # Man Lymphocytes # (Manual) Monocytes # (Manual) Eosinophils # (Manual) Basophils # (Manual) PT INR D-Dimer ABG pH POC ABG pCO2 POC ABG pO2 ABG pO2 ABG HCO3 ABG O2 Saturation ABG Base Excess ABG Hemoglobin ABG Oxyhemoglobin ABG Potassium ABG Glucose Oxyhemoglobin Carboxyhemoglobin Sodium Potassium Chloride Carbon Dioxide BUN Creatinine Glucose POC Glucose 133 H 110 H 114 H Calcium Ferritin Total Bilirubin Alkaline Phosphatase Lactate Dehydrogenase Total Creatine Kinase CK-MB (CK-2) Rel Index Troponin T C-Reactive Protein Total Protein Albumin Prealbumin LDL Cholesterol Direct HDL Cholesterol Arterial Blood Glucose Arterial Blood Ionized Calcium Urine WBC (Auto) 04/14/20 04/14/20 04/14/20 05:58 11:45 17:48 WBC RBC Hgb Hct MCV MCH RDW Plt Count Lymph % (Auto) [place] % (Auto) Eos % (Auto) Lymph # (Auto) [place] # (Auto) Eos # (Auto) Seg Neutrophils % Seg Neuts % (Manual) Lymphocytes % (Manual) Monocytes % (Manual) Basophils % (Manual) Seg Neutrophils # Seg Neutrophils # Man Lymphocytes # (Manual) Monocytes # (Manual) Eosinophils # (Manual) Basophils # (Manual) PT INR D-Dimer ABG pH POC ABG pCO2 POC ABG pO2 ABG pO2 ABG HCO3 ABG O2 Saturation ABG Base Excess ABG Hemoglobin ABG Oxyhemoglobin ABG Potassium ABG Glucose Oxyhemoglobin Carboxyhemoglobin Sodium Potassium Chloride Carbon Dioxide BUN Creatinine Glucose POC Glucose 115 H 122 H 124 H Calcium Ferritin Total Bilirubin Alkaline Phosphatase Lactate Dehydrogenase Total Creatine Kinase CK-MB (CK-2) Rel Index Troponin T C-Reactive Protein Total Protein Albumin Prealbumin LDL Cholesterol Direct HDL Cholesterol Arterial Blood Glucose Arterial Blood Ionized Calcium Urine WBC (Auto) 04/15/20 04/15/20 04/15/20 00:11 05:38 11:31 WBC RBC Hgb Hct MCV MCH RDW Plt Count Lymph % (Auto) [place] % (Auto) Eos % (Auto) Lymph # (Auto) [place] # (Auto) Eos # (Auto) Seg Neutrophils % Seg Neuts % (Manual) Lymphocytes % (Manual) Monocytes % (Manual) Basophils % (Manual) Seg Neutrophils # Seg Neutrophils # Man Lymphocytes # (Manual) Monocytes # (Manual) Eosinophils # (Manual) Basophils # (Manual) PT INR D-Dimer ABG pH POC ABG pCO2 POC ABG pO2 ABG pO2 ABG HCO3 ABG O2 Saturation ABG Base Excess ABG Hemoglobin ABG Oxyhemoglobin ABG Potassium ABG Glucose Oxyhemoglobin Carboxyhemoglobin Sodium Potassium Chloride Carbon Dioxide BUN Creatinine Glucose POC Glucose 120 H 109 H 123 H Calcium Ferritin Total Bilirubin Alkaline Phosphatase Lactate Dehydrogenase Total Creatine Kinase CK-MB (CK-2) Rel Index Troponin T C-Reactive Protein Total Protein Albumin Prealbumin LDL Cholesterol Direct HDL Cholesterol Arterial Blood Glucose Arterial Blood Ionized Calcium Urine WBC (Auto) 04/15/20 04/16/20 04/16/20 17:35 06:00 11:29 WBC RBC Hgb Hct MCV MCH RDW Plt Count Lymph % (Auto) [place] % (Auto) Eos % (Auto) Lymph # (Auto) [place] # (Auto) Eos # (Auto) Seg Neutrophils % Seg Neuts % (Manual) Lymphocytes % (Manual) Monocytes % (Manual) Basophils % (Manual) Seg Neutrophils # Seg Neutrophils # Man Lymphocytes # (Manual) Monocytes # (Manual) Eosinophils # (Manual) Basophils # (Manual) PT INR D-Dimer ABG pH POC ABG pCO2 POC ABG pO2 ABG pO2 ABG HCO3 ABG O2 Saturation ABG Base Excess ABG Hemoglobin ABG Oxyhemoglobin ABG Potassium ABG Glucose Oxyhemoglobin Carboxyhemoglobin Sodium Potassium Chloride Carbon Dioxide BUN Creatinine Glucose POC Glucose 111 H 142 H 108 H Calcium Ferritin Total Bilirubin Alkaline Phosphatase Lactate Dehydrogenase Total Creatine Kinase CK-MB (CK-2) Rel Index Troponin T C-Reactive Protein Total Protein Albumin Prealbumin LDL Cholesterol Direct HDL Cholesterol Arterial Blood Glucose Arterial Blood Ionized Calcium Urine WBC (Auto) 04/17/20 04/17/20 04/17/20 05:09 06:53 06:53 WBC 14.2 H RBC Hgb 10.1 L Hct 31.5 L MCV MCH 27 L RDW 17.2 H Plt Count 643 H Lymph % (Auto) [place] % (Auto) Eos % (Auto) Lymph # (Auto) [place] # (Auto) Eos # (Auto) Seg Neutrophils % Seg Neuts % (Manual) Lymphocytes % (Manual) Monocytes % (Manual) Basophils % (Manual) Seg Neutrophils # Seg Neutrophils # Man Lymphocytes # (Manual) Monocytes # (Manual) Eosinophils # (Manual) Basophils # (Manual) PT INR D-Dimer ABG pH POC ABG pCO2 POC ABG pO2 ABG pO2 ABG HCO3 ABG O2 Saturation ABG Base Excess ABG Hemoglobin ABG Oxyhemoglobin ABG Potassium ABG Glucose Oxyhemoglobin Carboxyhemoglobin Sodium Potassium Chloride 97.7 L Carbon Dioxide 38 H BUN Creatinine < 0.2 L Glucose 126 H POC Glucose 131 H Calcium Ferritin Total Bilirubin Alkaline Phosphatase Lactate Dehydrogenase Total Creatine Kinase CK-MB (CK-2) Rel Index Troponin T C-Reactive Protein Total Protein Albumin Prealbumin LDL Cholesterol Direct HDL Cholesterol Arterial Blood Glucose Arterial Blood Ionized Calcium Urine WBC (Auto) 04/17/20 04/18/20 04/18/20 11:21 00:23 04:01 WBC 15.3 H RBC Hgb 10.1 L Hct 31.9 L MCV 82 L MCH 26 L RDW 17.2 H Plt Count 665 H Lymph % (Auto) 12.9 L [place] % (Auto) Eos % (Auto) Lymph # (Auto) [place] # (Auto) 1.1 H Eos # (Auto) Seg Neutrophils % 78.0 H Seg Neuts % (Manual) Lymphocytes % (Manual) Monocytes % (Manual) Basophils % (Manual) Seg Neutrophils # 11.9 H Seg Neutrophils # Man Lymphocytes # (Manual) Monocytes # (Manual) Eosinophils # (Manual) Basophils # (Manual) PT INR D-Dimer ABG pH POC ABG pCO2 POC ABG pO2 ABG pO2 ABG HCO3 ABG O2 Saturation ABG Base Excess ABG Hemoglobin ABG Oxyhemoglobin ABG Potassium ABG Glucose Oxyhemoglobin Carboxyhemoglobin Sodium Potassium Chloride Carbon Dioxide BUN Creatinine Glucose POC Glucose 140 H 125 H Calcium Ferritin Total Bilirubin Alkaline Phosphatase Lactate Dehydrogenase Total Creatine Kinase CK-MB (CK-2) Rel Index Troponin T C-Reactive Protein Total Protein Albumin Prealbumin LDL Cholesterol Direct HDL Cholesterol Arterial Blood Glucose Arterial Blood Ionized Calcium Urine WBC (Auto) 04/18/20 04/18/20 04/18/20 04:01 11:29 17:30 WBC RBC Hgb Hct MCV MCH RDW Plt Count Lymph % (Auto) [place] % (Auto) Eos % (Auto) Lymph # (Auto) [place] # (Auto) Eos # (Auto) Seg Neutrophils % Seg Neuts % (Manual) Lymphocytes % (Manual) Monocytes % (Manual) Basophils % (Manual) Seg Neutrophils # Seg Neutrophils # Man Lymphocytes # (Manual) Monocytes # (Manual) Eosinophils # (Manual) Basophils # (Manual) PT INR D-Dimer ABG pH POC ABG pCO2 POC ABG pO2 ABG pO2 ABG HCO3 ABG O2 Saturation ABG Base Excess ABG Hemoglobin ABG Oxyhemoglobin ABG Potassium ABG Glucose Oxyhemoglobin Carboxyhemoglobin Sodium Potassium Chloride 97.0 L Carbon Dioxide 38 H BUN Creatinine < 0.2 L Glucose 117 H POC Glucose 136 H 107 H Calcium Ferritin Total Bilirubin Alkaline Phosphatase Lactate Dehydrogenase Total Creatine Kinase CK-MB (CK-2) Rel Index Troponin T C-Reactive Protein Total Protein Albumin Prealbumin LDL Cholesterol Direct HDL Cholesterol Arterial Blood Glucose Arterial Blood Ionized Calcium Urine WBC (Auto) 04/18/20 04/19/20 04/19/20 23:19 06:51 06:51 WBC 12.2 H RBC Hgb 9.8 L Hct 31.1 L MCV 82 L MCH 26 L RDW 17.2 H Plt Count 549 H Lymph % (Auto) 6.5 L [place] % (Auto) Eos % (Auto) Lymph # (Auto) 0.8 L [place] # (Auto) Eos # (Auto) Seg Neutrophils % 86.7 H Seg Neuts % (Manual) Lymphocytes % (Manual) Monocytes % (Manual) Basophils % (Manual) Seg Neutrophils # 10.6 H Seg Neutrophils # Man Lymphocytes # (Manual) Monocytes # (Manual) Eosinophils # (Manual) Basophils # (Manual) PT INR D-Dimer ABG pH POC ABG pCO2 POC ABG pO2 ABG pO2 ABG HCO3 ABG O2 Saturation ABG Base Excess ABG Hemoglobin ABG Oxyhemoglobin ABG Potassium ABG Glucose Oxyhemoglobin Carboxyhemoglobin Sodium Potassium Chloride 97.8 L Carbon Dioxide 38 H BUN Creatinine < 0.2 L Glucose 123 H POC Glucose 127 H Calcium Ferritin Total Bilirubin Alkaline Phosphatase Lactate Dehydrogenase Total Creatine Kinase CK-MB (CK-2) Rel Index Troponin T C-Reactive Protein Total Protein Albumin Prealbumin LDL Cholesterol Direct HDL Cholesterol Arterial Blood Glucose Arterial Blood Ionized Calcium Urine WBC (Auto) 04/19/20 04/19/20 04/20/20 13:41 18:33 05:56 WBC RBC Hgb Hct MCV MCH RDW Plt Count Lymph % (Auto) [place] % (Auto) Eos % (Auto) Lymph # (Auto) [place] # (Auto) Eos # (Auto) Seg Neutrophils % Seg Neuts % (Manual) Lymphocytes % (Manual) Monocytes % (Manual) Basophils % (Manual) Seg Neutrophils # Seg Neutrophils # Man Lymphocytes # (Manual) Monocytes # (Manual) Eosinophils # (Manual) Basophils # (Manual) PT INR D-Dimer ABG pH POC ABG pCO2 POC ABG pO2 ABG pO2 ABG HCO3 ABG O2 Saturation ABG Base Excess ABG Hemoglobin ABG Oxyhemoglobin ABG Potassium ABG Glucose Oxyhemoglobin Carboxyhemoglobin Sodium Potassium Chloride Carbon Dioxide BUN Creatinine Glucose POC Glucose 116 H 124 H 130 H Calcium Ferritin Total Bilirubin Alkaline Phosphatase Lactate Dehydrogenase Total Creatine Kinase CK-MB (CK-2) Rel Index Troponin T C-Reactive Protein Total Protein Albumin Prealbumin LDL Cholesterol Direct HDL Cholesterol Arterial Blood Glucose Arterial Blood Ionized Calcium Urine WBC (Auto) 04/20/20 04/20/20 04/20/20 06:28 06:28 11:46 WBC RBC Hgb 10.2 L Hct 31.5 L MCV 82 L MCH 27 L RDW 17.1 H Plt Count 546 H Lymph % (Auto) 10.0 L [place] % (Auto) 9.8 H Eos % (Auto) Lymph # (Auto) 1.1 L [place] # (Auto) 1.1 H Eos # (Auto) Seg Neutrophils % 78.4 H Seg Neuts % (Manual) Lymphocytes % (Manual) Monocytes % (Manual) Basophils % (Manual) Seg Neutrophils # 8.5 H Seg Neutrophils # Man Lymphocytes # (Manual) Monocytes # (Manual) Eosinophils # (Manual) Basophils # (Manual) PT INR D-Dimer ABG pH POC ABG pCO2 POC ABG pO2 ABG pO2 ABG HCO3 ABG O2 Saturation ABG Base Excess ABG Hemoglobin ABG Oxyhemoglobin ABG Potassium ABG Glucose Oxyhemoglobin Carboxyhemoglobin Sodium Potassium Chloride 97.0 L Carbon Dioxide 38 H BUN Creatinine < 0.2 L Glucose 138 H POC Glucose 130 H Calcium Ferritin Total Bilirubin Alkaline Phosphatase Lactate Dehydrogenase Total Creatine Kinase CK-MB (CK-2) Rel Index Troponin T C-Reactive Protein Total Protein Albumin Prealbumin LDL Cholesterol Direct HDL Cholesterol Arterial Blood Glucose Arterial Blood Ionized Calcium Urine WBC (Auto) 04/20/20 04/21/20 04/21/20 23:31 05:55 05:55 WBC RBC Hgb 10.0 L Hct 31.1 L MCV 82 L MCH 26 L RDW 17.0 H Plt Count 535 H Lymph % (Auto) [place] % (Auto) 9.2 H Eos % (Auto) Lymph # (Auto) 1.1 L [place] # (Auto) Eos # (Auto) Seg Neutrophils % 75.4 H Seg Neuts % (Manual) Lymphocytes % (Manual) Monocytes % (Manual) Basophils % (Manual) Seg Neutrophils # Seg Neutrophils # Man Lymphocytes # (Manual) Monocytes # (Manual) Eosinophils # (Manual) Basophils # (Manual) PT INR D-Dimer ABG pH POC ABG pCO2 POC ABG pO2 ABG pO2 ABG HCO3 ABG O2 Saturation ABG Base Excess ABG Hemoglobin ABG Oxyhemoglobin ABG Potassium ABG Glucose Oxyhemoglobin Carboxyhemoglobin Sodium Potassium Chloride 95.0 L Carbon Dioxide 34 H BUN Creatinine < 0.2 L Glucose 125 H POC Glucose 116 H Calcium Ferritin Total Bilirubin Alkaline Phosphatase Lactate Dehydrogenase Total Creatine Kinase CK-MB (CK-2) Rel Index Troponin T C-Reactive Protein Total Protein Albumin Prealbumin LDL Cholesterol Direct HDL Cholesterol Arterial Blood Glucose Arterial Blood Ionized Calcium Urine WBC (Auto) 04/22/20 04/22/20 04/22/20 00:01 07:45 07:45 WBC RBC Hgb 10.0 L Hct 30.7 L MCV 81 L MCH 27 L RDW 17.1 H Plt Count 490 H Lymph % (Auto) [place] % (Auto) Eos % (Auto) Lymph # (Auto) [place] # (Auto) Eos # (Auto) Seg Neutrophils % Seg Neuts % (Manual) 75.0 H Lymphocytes % (Manual) 11.0 L Monocytes % (Manual) 9.0 H Basophils % (Manual) Seg Neutrophils # Seg Neutrophils # Man Lymphocytes # (Manual) 0.8 L Monocytes # (Manual) Eosinophils # (Manual) Basophils # (Manual) PT INR D-Dimer ABG pH POC ABG pCO2 POC ABG pO2 ABG pO2 ABG HCO3 ABG O2 Saturation ABG Base Excess ABG Hemoglobin ABG Oxyhemoglobin ABG Potassium ABG Glucose Oxyhemoglobin Carboxyhemoglobin Sodium Potassium Chloride 96.3 L Carbon Dioxide 40 H BUN Creatinine < 0.2 L Glucose 109 H POC Glucose 110 H Calcium Ferritin Total Bilirubin Alkaline Phosphatase Lactate Dehydrogenase Total Creatine Kinase CK-MB (CK-2) Rel Index Troponin T C-Reactive Protein Total Protein Albumin Prealbumin LDL Cholesterol Direct HDL Cholesterol Arterial Blood Glucose Arterial Blood Ionized Calcium Urine WBC (Auto) 04/23/20 04/23/20 04/23/20 04:28 04:28 04:28 WBC RBC 3.64 L Hgb 9.7 L Hct 29.4 L MCV 81 L MCH 27 L RDW 17.2 H Plt Count 527 H Lymph % (Auto) [place] % (Auto) 8.9 H Eos % (Auto) Lymph # (Auto) [place] # (Auto) Eos # (Auto) Seg Neutrophils % Seg Neuts % (Manual) Lymphocytes % (Manual) Monocytes % (Manual) Basophils % (Manual) Seg Neutrophils # Seg Neutrophils # Man Lymphocytes # (Manual) Monocytes # (Manual) Eosinophils # (Manual) Basophils # (Manual) PT INR D-Dimer ABG pH POC ABG pCO2 POC ABG pO2 ABG pO2 ABG HCO3 ABG O2 Saturation ABG Base Excess ABG Hemoglobin ABG Oxyhemoglobin ABG Potassium ABG Glucose Oxyhemoglobin Carboxyhemoglobin Sodium Potassium Chloride 96.4 L Carbon Dioxide 32 H D BUN Creatinine < 0.2 L Glucose 134 H POC Glucose Calcium Ferritin Total Bilirubin Alkaline Phosphatase Lactate Dehydrogenase Total Creatine Kinase CK-MB (CK-2) Rel Index Troponin T 0.151 H* C-Reactive Protein Total Protein Albumin Prealbumin LDL Cholesterol Direct HDL Cholesterol 29 L Arterial Blood Glucose Arterial Blood Ionized Calcium Urine WBC (Auto) 04/23/20 04/23/20 04/24/20 06:03 23:41 05:28 WBC RBC 3.56 L Hgb 9.5 L Hct 28.9 L MCV 81 L MCH 27 L RDW 17.4 H Plt Count 462 H Lymph % (Auto) [place] % (Auto) Eos % (Auto) Lymph # (Auto) [place] # (Auto) Eos # (Auto) Seg Neutrophils % Seg Neuts % (Manual) 80.0 H Lymphocytes % (Manual) Monocytes % (Manual) Basophils % (Manual) Seg Neutrophils # Seg Neutrophils # Man Lymphocytes # (Manual) Monocytes # (Manual) Eosinophils # (Manual) Basophils # (Manual) PT INR D-Dimer ABG pH POC ABG pCO2 POC ABG pO2 ABG pO2 ABG HCO3 ABG O2 Saturation ABG Base Excess ABG Hemoglobin ABG Oxyhemoglobin ABG Potassium ABG Glucose Oxyhemoglobin Carboxyhemoglobin Sodium Potassium Chloride Carbon Dioxide BUN Creatinine Glucose POC Glucose 132 H 117 H Calcium Ferritin Total Bilirubin Alkaline Phosphatase Lactate Dehydrogenase Total Creatine Kinase CK-MB (CK-2) Rel Index Troponin T C-Reactive Protein Total Protein Albumin Prealbumin LDL Cholesterol Direct HDL Cholesterol Arterial Blood Glucose Arterial Blood Ionized Calcium Urine WBC (Auto) 04/24/20 04/24/20 04/24/20 05:28 05:28 05:33 WBC RBC Hgb Hct MCV MCH RDW Plt Count Lymph % (Auto) [place] % (Auto) Eos % (Auto) Lymph # (Auto) [place] # (Auto) Eos # (Auto) Seg Neutrophils % Seg Neuts % (Manual) Lymphocytes % (Manual) Monocytes % (Manual) Basophils % (Manual) Seg Neutrophils # Seg Neutrophils # Man Lymphocytes # (Manual) Monocytes # (Manual) Eosinophils # (Manual) Basophils # (Manual) PT INR D-Dimer ABG pH POC ABG pCO2 POC ABG pO2 ABG pO2 ABG HCO3 ABG O2 Saturation ABG Base Excess ABG Hemoglobin ABG Oxyhemoglobin ABG Potassium ABG Glucose Oxyhemoglobin Carboxyhemoglobin Sodium Potassium Chloride 96.1 L Carbon Dioxide 40 H D BUN Creatinine < 0.2 L Glucose 115 H POC Glucose 109 H Calcium Ferritin Total Bilirubin Alkaline Phosphatase Lactate Dehydrogenase Total Creatine Kinase CK-MB (CK-2) Rel Index Troponin T 0.181 H* C-Reactive Protein Total Protein Albumin Prealbumin LDL Cholesterol Direct HDL Cholesterol Arterial Blood Glucose Arterial Blood Ionized Calcium Urine WBC (Auto) 04/24/20 04/24/20 04/25/20 11:17 18:23 00:12 WBC RBC Hgb Hct MCV MCH RDW Plt Count Lymph % (Auto) [place] % (Auto) Eos % (Auto) Lymph # (Auto) [place] # (Auto) Eos # (Auto) Seg Neutrophils % Seg Neuts % (Manual) Lymphocytes % (Manual) Monocytes % (Manual) Basophils % (Manual) Seg Neutrophils # Seg Neutrophils # Man Lymphocytes # (Manual) Monocytes # (Manual) Eosinophils # (Manual) Basophils # (Manual) PT INR D-Dimer ABG pH POC ABG pCO2 POC ABG pO2 ABG pO2 ABG HCO3 ABG O2 Saturation ABG Base Excess ABG Hemoglobin ABG Oxyhemoglobin ABG Potassium ABG Glucose Oxyhemoglobin Carboxyhemoglobin Sodium Potassium Chloride Carbon Dioxide BUN Creatinine Glucose POC Glucose 117 H 109 H 113 H Calcium Ferritin Total Bilirubin Alkaline Phosphatase Lactate Dehydrogenase Total Creatine Kinase CK-MB (CK-2) Rel Index Troponin T C-Reactive Protein Total Protein Albumin Prealbumin LDL Cholesterol Direct HDL Cholesterol Arterial Blood Glucose Arterial Blood Ionized Calcium Urine WBC (Auto) 04/25/20 04/25/20 04/25/20 06:34 06:34 11:28 WBC 11.7 H RBC Hgb 10.0 L Hct 31.7 L MCV 82 L MCH 26 L RDW 17.5 H Plt Count 564 H Lymph % (Auto) [place] % (Auto) Eos % (Auto) Lymph # (Auto) [place] # (Auto) Eos # (Auto) Seg Neutrophils % Seg Neuts % (Manual) 78.0 H Lymphocytes % (Manual) 10.0 L Monocytes % (Manual) 9.0 H Basophils % (Manual) Seg Neutrophils # Seg Neutrophils # Man 9.1 H Lymphocytes # (Manual) Monocytes # (Manual) 1.1 H Eosinophils # (Manual) Basophils # (Manual) PT INR D-Dimer ABG pH POC ABG pCO2 POC ABG pO2 ABG pO2 ABG HCO3 ABG O2 Saturation ABG Base Excess ABG Hemoglobin ABG Oxyhemoglobin ABG Potassium ABG Glucose Oxyhemoglobin Carboxyhemoglobin Sodium Potassium Chloride Carbon Dioxide 39 H BUN Creatinine < 0.2 L Glucose 103 H POC Glucose 112 H Calcium Ferritin Total Bilirubin Alkaline Phosphatase Lactate Dehydrogenase Total Creatine Kinase CK-MB (CK-2) Rel Index Troponin T C-Reactive Protein Total Protein Albumin Prealbumin LDL Cholesterol Direct HDL Cholesterol Arterial Blood Glucose Arterial Blood Ionized Calcium Urine WBC (Auto) 04/27/20 04/27/20 04/27/20 11:48 17:08 23:31 WBC RBC Hgb Hct MCV MCH RDW Plt Count Lymph % (Auto) [place] % (Auto) Eos % (Auto) Lymph # (Auto) [place] # (Auto) Eos # (Auto) Seg Neutrophils % Seg Neuts % (Manual) Lymphocytes % (Manual) Monocytes % (Manual) Basophils % (Manual) Seg Neutrophils # Seg Neutrophils # Man Lymphocytes # (Manual) Monocytes # (Manual) Eosinophils # (Manual) Basophils # (Manual) PT INR D-Dimer ABG pH POC ABG pCO2 POC ABG pO2 ABG pO2 ABG HCO3 ABG O2 Saturation ABG Base Excess ABG Hemoglobin ABG Oxyhemoglobin ABG Potassium ABG Glucose Oxyhemoglobin Carboxyhemoglobin Sodium Potassium Chloride Carbon Dioxide BUN Creatinine Glucose POC Glucose 124 H 118 H 122 H Calcium Ferritin Total Bilirubin Alkaline Phosphatase Lactate Dehydrogenase Total Creatine Kinase CK-MB (CK-2) Rel Index Troponin T C-Reactive Protein Total Protein Albumin Prealbumin LDL Cholesterol Direct HDL Cholesterol Arterial Blood Glucose Arterial Blood Ionized Calcium Urine WBC (Auto) 04/28/20 04/29/20 04/29/20 05:42 00:14 05:30 WBC RBC Hgb Hct MCV MCH RDW Plt Count Lymph % (Auto) [place] % (Auto) Eos % (Auto) Lymph # (Auto) [place] # (Auto) Eos # (Auto) Seg Neutrophils % Seg Neuts % (Manual) Lymphocytes % (Manual) Monocytes % (Manual) Basophils % (Manual) Seg Neutrophils # Seg Neutrophils # Man Lymphocytes # (Manual) Monocytes # (Manual) Eosinophils # (Manual) Basophils # (Manual) PT INR D-Dimer ABG pH POC ABG pCO2 POC ABG pO2 ABG pO2 ABG HCO3 ABG O2 Saturation ABG Base Excess ABG Hemoglobin ABG Oxyhemoglobin ABG Potassium ABG Glucose Oxyhemoglobin Carboxyhemoglobin Sodium Potassium Chloride Carbon Dioxide BUN Creatinine Glucose POC Glucose 122 H 115 H 123 H Calcium Ferritin Total Bilirubin Alkaline Phosphatase Lactate Dehydrogenase Total Creatine Kinase CK-MB (CK-2) Rel Index Troponin T C-Reactive Protein Total Protein Albumin Prealbumin LDL Cholesterol Direct HDL Cholesterol Arterial Blood Glucose Arterial Blood Ionized Calcium Urine WBC (Auto) 04/30/20 05/01/20 05/01/20 00:29 05:39 12:30 WBC RBC Hgb Hct MCV MCH RDW Plt Count Lymph % (Auto) [place] % (Auto) Eos % (Auto) Lymph # (Auto) [place] # (Auto) Eos # (Auto) Seg Neutrophils % Seg Neuts % (Manual) Lymphocytes % (Manual) Monocytes % (Manual) Basophils % (Manual) Seg Neutrophils # Seg Neutrophils # Man Lymphocytes # (Manual) Monocytes # (Manual) Eosinophils # (Manual) Basophils # (Manual) PT INR D-Dimer ABG pH POC ABG pCO2 POC ABG pO2 ABG pO2 ABG HCO3 ABG O2 Saturation ABG Base Excess ABG Hemoglobin ABG Oxyhemoglobin ABG Potassium ABG Glucose Oxyhemoglobin Carboxyhemoglobin Sodium Potassium Chloride Carbon Dioxide BUN Creatinine Glucose POC Glucose 106 H 109 H 108 H Calcium Ferritin Total Bilirubin Alkaline Phosphatase Lactate Dehydrogenase Total Creatine Kinase CK-MB (CK-2) Rel Index Troponin T C-Reactive Protein Total Protein Albumin Prealbumin LDL Cholesterol Direct HDL Cholesterol Arterial Blood Glucose Arterial Blood Ionized Calcium Urine WBC (Auto) 05/01/20 05/03/20 05/03/20 23:35 05:09 11:36 WBC RBC Hgb Hct MCV MCH RDW Plt Count Lymph % (Auto) [place] % (Auto) Eos % (Auto) Lymph # (Auto) [place] # (Auto) Eos # (Auto) Seg Neutrophils % Seg Neuts % (Manual) Lymphocytes % (Manual) Monocytes % (Manual) Basophils % (Manual) Seg Neutrophils # Seg Neutrophils # Man Lymphocytes # (Manual) Monocytes # (Manual) Eosinophils # (Manual) Basophils # (Manual) PT INR D-Dimer ABG pH POC ABG pCO2 POC ABG pO2 ABG pO2 ABG HCO3 ABG O2 Saturation ABG Base Excess ABG Hemoglobin ABG Oxyhemoglobin ABG Potassium ABG Glucose Oxyhemoglobin Carboxyhemoglobin Sodium Potassium Chloride Carbon Dioxide BUN Creatinine Glucose POC Glucose 116 H 117 H 116 H Calcium Ferritin Total Bilirubin Alkaline Phosphatase Lactate Dehydrogenase Total Creatine Kinase CK-MB (CK-2) Rel Index Troponin T C-Reactive Protein Total Protein Albumin Prealbumin LDL Cholesterol Direct HDL Cholesterol Arterial Blood Glucose Arterial Blood Ionized Calcium Urine WBC (Auto) 05/03/20 05/03/20 05/03/20 14:06 14:06 23:39 WBC 12.5 H RBC Hgb 10.0 L Hct 31.2 L MCV 80 L MCH 26 L RDW 17.6 H Plt Count 488 H Lymph % (Auto) [place] % (Auto) Eos % (Auto) Lymph # (Auto) [place] # (Auto) Eos # (Auto) Seg Neutrophils % Seg Neuts % (Manual) Lymphocytes % (Manual) Monocytes % (Manual) Basophils % (Manual) Seg Neutrophils # Seg Neutrophils # Man Lymphocytes # (Manual) Monocytes # (Manual) Eosinophils # (Manual) Basophils # (Manual) PT INR D-Dimer ABG pH POC ABG pCO2 POC ABG pO2 ABG pO2 ABG HCO3 ABG O2 Saturation ABG Base Excess ABG Hemoglobin ABG Oxyhemoglobin ABG Potassium ABG Glucose Oxyhemoglobin Carboxyhemoglobin Sodium Potassium Chloride 95.4 L Carbon Dioxide 40 H BUN Creatinine < 0.2 L Glucose 121 H POC Glucose 107 H Calcium Ferritin Total Bilirubin Alkaline Phosphatase Lactate Dehydrogenase Total Creatine Kinase CK-MB (CK-2) Rel Index Troponin T C-Reactive Protein Total Protein Albumin Prealbumin LDL Cholesterol Direct HDL Cholesterol Arterial Blood Glucose Arterial Blood Ionized Calcium Urine WBC (Auto) 05/04/20 05/04/20 05/04/20 11:31 16:57 23:18 WBC RBC Hgb Hct MCV MCH RDW Plt Count Lymph % (Auto) [place] % (Auto) Eos % (Auto) Lymph # (Auto) [place] # (Auto) Eos # (Auto) Seg Neutrophils % Seg Neuts % (Manual) Lymphocytes % (Manual) Monocytes % (Manual) Basophils % (Manual) Seg Neutrophils # Seg Neutrophils # Man Lymphocytes # (Manual) Monocytes # (Manual) Eosinophils # (Manual) Basophils # (Manual) PT INR D-Dimer ABG pH POC ABG pCO2 POC ABG pO2 ABG pO2 ABG HCO3 ABG O2 Saturation ABG Base Excess ABG Hemoglobin ABG Oxyhemoglobin ABG Potassium ABG Glucose Oxyhemoglobin Carboxyhemoglobin Sodium Potassium Chloride Carbon Dioxide BUN Creatinine Glucose POC Glucose 113 H 126 H 126 H Calcium Ferritin Total Bilirubin Alkaline Phosphatase Lactate Dehydrogenase Total Creatine Kinase CK-MB (CK-2) Rel Index Troponin T C-Reactive Protein Total Protein Albumin Prealbumin LDL Cholesterol Direct HDL Cholesterol Arterial Blood Glucose Arterial Blood Ionized Calcium Urine WBC (Auto) 05/05/20 05/05/20 05/05/20 05:32 11:11 23:57 WBC RBC Hgb Hct MCV MCH RDW Plt Count Lymph % (Auto) [place] % (Auto) Eos % (Auto) Lymph # (Auto) [place] # (Auto) Eos # (Auto) Seg Neutrophils % Seg Neuts % (Manual) Lymphocytes % (Manual) Monocytes % (Manual) Basophils % (Manual) Seg Neutrophils # Seg Neutrophils # Man Lymphocytes # (Manual) Monocytes # (Manual) Eosinophils # (Manual) Basophils # (Manual) PT INR D-Dimer ABG pH POC ABG pCO2 POC ABG pO2 ABG pO2 ABG HCO3 ABG O2 Saturation ABG Base Excess ABG Hemoglobin ABG Oxyhemoglobin ABG Potassium ABG Glucose Oxyhemoglobin Carboxyhemoglobin Sodium Potassium Chloride Carbon Dioxide BUN Creatinine Glucose POC Glucose 109 H 124 H 119 H Calcium Ferritin Total Bilirubin Alkaline Phosphatase Lactate Dehydrogenase Total Creatine Kinase CK-MB (CK-2) Rel Index Troponin T C-Reactive Protein Total Protein Albumin Prealbumin LDL Cholesterol Direct HDL Cholesterol Arterial Blood Glucose Arterial Blood Ionized Calcium Urine WBC (Auto) 01/01/1605/06/20 05/07/20 05:34 23:08 04:43 WBC RBC Hgb 10.1 L Hct 31.9 L MCV 81 L MCH 25 L RDW 17.6 H Plt Count 506 H Lymph % (Auto) [place] % (Auto) 8.6 H Eos % (Auto) Lymph # (Auto) [place] # (Auto) 0.9 H Eos # (Auto) Seg Neutrophils % Seg Neuts % (Manual) Lymphocytes % (Manual) Monocytes % (Manual) Basophils % (Manual) Seg Neutrophils # Seg Neutrophils # Man Lymphocytes # (Manual) Monocytes # (Manual) Eosinophils # (Manual) Basophils # (Manual) PT INR D-Dimer ABG pH POC ABG pCO2 POC ABG pO2 ABG pO2 ABG HCO3 ABG O2 Saturation ABG Base Excess ABG Hemoglobin ABG Oxyhemoglobin ABG Potassium ABG Glucose Oxyhemoglobin Carboxyhemoglobin Sodium Potassium Chloride Carbon Dioxide BUN Creatinine Glucose POC Glucose 121 H 107 H Calcium Ferritin Total Bilirubin Alkaline Phosphatase Lactate Dehydrogenase Total Creatine Kinase CK-MB (CK-2) Rel Index Troponin T C-Reactive Protein Total Protein Albumin Prealbumin LDL Cholesterol Direct HDL Cholesterol Arterial Blood Glucose Arterial Blood Ionized Calcium Urine WBC (Auto) 05/07/20 05/07/20 05/07/20 06:18 17:13 23:29 WBC RBC Hgb Hct MCV MCH RDW Plt Count Lymph % (Auto) [place] % (Auto) Eos % (Auto) Lymph # (Auto) [place] # (Auto) Eos # (Auto) Seg Neutrophils % Seg Neuts % (Manual) Lymphocytes % (Manual) Monocytes % (Manual) Basophils % (Manual) Seg Neutrophils # Seg Neutrophils # Man Lymphocytes # (Manual) Monocytes # (Manual) Eosinophils # (Manual) Basophils # (Manual) PT INR D-Dimer ABG pH POC ABG pCO2 POC ABG pO2 ABG pO2 ABG HCO3 ABG O2 Saturation ABG Base Excess ABG Hemoglobin ABG Oxyhemoglobin ABG Potassium ABG Glucose Oxyhemoglobin Carboxyhemoglobin Sodium Potassium Chloride Carbon Dioxide BUN Creatinine Glucose POC Glucose 121 H 122 H 114 H Calcium Ferritin Total Bilirubin Alkaline Phosphatase Lactate Dehydrogenase Total Creatine Kinase CK-MB (CK-2) Rel Index Troponin T C-Reactive Protein Total Protein Albumin Prealbumin LDL Cholesterol Direct HDL Cholesterol Arterial Blood Glucose Arterial Blood Ionized Calcium Urine WBC (Auto) 05/08/20 05/08/20 05/08/20 05:20 11:57 23:42 WBC RBC Hgb Hct MCV MCH RDW Plt Count Lymph % (Auto) [place] % (Auto) Eos % (Auto) Lymph # (Auto) [place] # (Auto) Eos # (Auto) Seg Neutrophils % Seg Neuts % (Manual) Lymphocytes % (Manual) Monocytes % (Manual) Basophils % (Manual) Seg Neutrophils # Seg Neutrophils # Man Lymphocytes # (Manual) Monocytes # (Manual) Eosinophils # (Manual) Basophils # (Manual) PT INR D-Dimer ABG pH POC ABG pCO2 POC ABG pO2 ABG pO2 ABG HCO3 ABG O2 Saturation ABG Base Excess ABG Hemoglobin ABG Oxyhemoglobin ABG Potassium ABG Glucose Oxyhemoglobin Carboxyhemoglobin Sodium Potassium Chloride Carbon Dioxide BUN Creatinine Glucose POC Glucose 121 H 113 H 135 H Calcium Ferritin Total Bilirubin Alkaline Phosphatase Lactate Dehydrogenase Total Creatine Kinase CK-MB (CK-2) Rel Index Troponin T C-Reactive Protein Total Protein Albumin Prealbumin LDL Cholesterol Direct HDL Cholesterol Arterial Blood Glucose Arterial Blood Ionized Calcium Urine WBC (Auto) 05/09/20 05/09/20 05/09/20 05:31 11:11 16:06 WBC RBC Hgb Hct MCV MCH RDW Plt Count Lymph % (Auto) [place] % (Auto) Eos % (Auto) Lymph # (Auto) [place] # (Auto) Eos # (Auto) Seg Neutrophils % Seg Neuts % (Manual) Lymphocytes % (Manual) Monocytes % (Manual) Basophils % (Manual) Seg Neutrophils # Seg Neutrophils # Man Lymphocytes # (Manual) Monocytes # (Manual) Eosinophils # (Manual) Basophils # (Manual) PT INR D-Dimer ABG pH POC ABG pCO2 POC ABG pO2 ABG pO2 ABG HCO3 ABG O2 Saturation ABG Base Excess ABG Hemoglobin ABG Oxyhemoglobin ABG Potassium ABG Glucose Oxyhemoglobin Carboxyhemoglobin Sodium 136 L Potassium Chloride 97.0 L Carbon Dioxide 34 H BUN Creatinine < 0.2 L Glucose 107 H POC Glucose 66 L 127 H Calcium Ferritin Total Bilirubin Alkaline Phosphatase Lactate Dehydrogenase Total Creatine Kinase CK-MB (CK-2) Rel Index Troponin T C-Reactive Protein Total Protein Albumin Prealbumin LDL Cholesterol Direct HDL Cholesterol Arterial Blood Glucose Arterial Blood Ionized Calcium Urine WBC (Auto) 05/09/20 05/10/20 05/10/20 23:19 04:59 11:28 WBC RBC Hgb Hct MCV MCH RDW Plt Count Lymph % (Auto) [place] % (Auto) Eos % (Auto) Lymph # (Auto) [place] # (Auto) Eos # (Auto) Seg Neutrophils % Seg Neuts % (Manual) Lymphocytes % (Manual) Monocytes % (Manual) Basophils % (Manual) Seg Neutrophils # Seg Neutrophils # Man Lymphocytes # (Manual) Monocytes # (Manual) Eosinophils # (Manual) Basophils # (Manual) PT INR D-Dimer ABG pH POC ABG pCO2 POC ABG pO2 ABG pO2 ABG HCO3 ABG O2 Saturation ABG Base Excess ABG Hemoglobin ABG Oxyhemoglobin ABG Potassium ABG Glucose Oxyhemoglobin Carboxyhemoglobin Sodium Potassium Chloride Carbon Dioxide BUN Creatinine Glucose POC Glucose 108 H 126 H 124 H Calcium Ferritin Total Bilirubin Alkaline Phosphatase Lactate Dehydrogenase Total Creatine Kinase CK-MB (CK-2) Rel Index Troponin T C-Reactive Protein Total Protein Albumin Prealbumin LDL Cholesterol Direct HDL Cholesterol Arterial Blood Glucose Arterial Blood Ionized Calcium Urine WBC (Auto) 05/10/20 05/11/20 05/11/20 23:56 06:13 11:44 WBC RBC Hgb Hct MCV MCH RDW Plt Count Lymph % (Auto) [place] % (Auto) Eos % (Auto) Lymph # (Auto) [place] # (Auto) Eos # (Auto) Seg Neutrophils % Seg Neuts % (Manual) Lymphocytes % (Manual) Monocytes % (Manual) Basophils % (Manual) Seg Neutrophils # Seg Neutrophils # Man Lymphocytes # (Manual) Monocytes # (Manual) Eosinophils # (Manual) Basophils # (Manual) PT INR D-Dimer ABG pH POC ABG pCO2 POC ABG pO2 ABG pO2 ABG HCO3 ABG O2 Saturation ABG Base Excess ABG Hemoglobin ABG Oxyhemoglobin ABG Potassium ABG Glucose Oxyhemoglobin Carboxyhemoglobin Sodium Potassium Chloride Carbon Dioxide BUN Creatinine Glucose POC Glucose 113 H 124 H 125 H Calcium Ferritin Total Bilirubin Alkaline Phosphatase Lactate Dehydrogenase Total Creatine Kinase CK-MB (CK-2) Rel Index Troponin T C-Reactive Protein Total Protein Albumin Prealbumin LDL Cholesterol Direct HDL Cholesterol Arterial Blood Glucose Arterial Blood Ionized Calcium Urine WBC (Auto) 05/12/20 05/12/20 05/12/20 06:04 12:17 17:23 WBC RBC Hgb Hct MCV MCH RDW Plt Count Lymph % (Auto) [place] % (Auto) Eos % (Auto) Lymph # (Auto) [place] # (Auto) Eos # (Auto) Seg Neutrophils % Seg Neuts % (Manual) Lymphocytes % (Manual) Monocytes % (Manual) Basophils % (Manual) Seg Neutrophils # Seg Neutrophils # Man Lymphocytes # (Manual) Monocytes # (Manual) Eosinophils # (Manual) Basophils # (Manual) PT INR D-Dimer ABG pH POC ABG pCO2 POC ABG pO2 ABG pO2 ABG HCO3 ABG O2 Saturation ABG Base Excess ABG Hemoglobin ABG Oxyhemoglobin ABG Potassium ABG Glucose Oxyhemoglobin Carboxyhemoglobin Sodium Potassium Chloride Carbon Dioxide BUN Creatinine Glucose POC Glucose 135 H 136 H 133 H Calcium Ferritin Total Bilirubin Alkaline Phosphatase Lactate Dehydrogenase Total Creatine Kinase CK-MB (CK-2) Rel Index Troponin T C-Reactive Protein Total Protein Albumin Prealbumin LDL Cholesterol Direct HDL Cholesterol Arterial Blood Glucose Arterial Blood Ionized Calcium Urine WBC (Auto) 05/12/20 05/13/20 05/13/20 23:34 05:36 11:25 WBC RBC Hgb Hct MCV MCH RDW Plt Count Lymph % (Auto) [place] % (Auto) Eos % (Auto) Lymph # (Auto) [place] # (Auto) Eos # (Auto) Seg Neutrophils % Seg Neuts % (Manual) Lymphocytes % (Manual) Monocytes % (Manual) Basophils % (Manual) Seg Neutrophils # Seg Neutrophils # Man Lymphocytes # (Manual) Monocytes # (Manual) Eosinophils # (Manual) Basophils # (Manual) PT INR D-Dimer ABG pH POC ABG pCO2 POC ABG pO2 ABG pO2 ABG HCO3 ABG O2 Saturation ABG Base Excess ABG Hemoglobin ABG Oxyhemoglobin ABG Potassium ABG Glucose Oxyhemoglobin Carboxyhemoglobin Sodium Potassium Chloride Carbon Dioxide BUN Creatinine Glucose POC Glucose 141 H 131 H 148 H Calcium Ferritin Total Bilirubin Alkaline Phosphatase Lactate Dehydrogenase Total Creatine Kinase CK-MB (CK-2) Rel Index Troponin T C-Reactive Protein Total Protein Albumin Prealbumin LDL Cholesterol Direct HDL Cholesterol Arterial Blood Glucose Arterial Blood Ionized Calcium Urine WBC (Auto) 05/13/20 05/14/20 05/14/20 16:40 00:11 05:03 WBC RBC Hgb Hct MCV MCH RDW Plt Count Lymph % (Auto) [place] % (Auto) Eos % (Auto) Lymph # (Auto) [place] # (Auto) Eos # (Auto) Seg Neutrophils % Seg Neuts % (Manual) Lymphocytes % (Manual) Monocytes % (Manual) Basophils % (Manual) Seg Neutrophils # Seg Neutrophils # Man Lymphocytes # (Manual) Monocytes # (Manual) Eosinophils # (Manual) Basophils # (Manual) PT INR D-Dimer ABG pH POC ABG pCO2 POC ABG pO2 ABG pO2 ABG HCO3 ABG O2 Saturation ABG Base Excess ABG Hemoglobin ABG Oxyhemoglobin ABG Potassium ABG Glucose Oxyhemoglobin Carboxyhemoglobin Sodium Potassium Chloride Carbon Dioxide BUN Creatinine Glucose POC Glucose 118 H 128 H 129 H Calcium Ferritin Total Bilirubin Alkaline Phosphatase Lactate Dehydrogenase Total Creatine Kinase CK-MB (CK-2) Rel Index Troponin T C-Reactive Protein Total Protein Albumin Prealbumin LDL Cholesterol Direct HDL Cholesterol Arterial Blood Glucose Arterial Blood Ionized Calcium Urine WBC (Auto) 05/14/20 05/15/20 05/16/20 11:38 23:46 05:20 WBC RBC Hgb Hct MCV MCH RDW Plt Count Lymph % (Auto) [place] % (Auto) Eos % (Auto) Lymph # (Auto) [place] # (Auto) Eos # (Auto) Seg Neutrophils % Seg Neuts % (Manual) Lymphocytes % (Manual) Monocytes % (Manual) Basophils % (Manual) Seg Neutrophils # Seg Neutrophils # Man Lymphocytes # (Manual) Monocytes # (Manual) Eosinophils # (Manual) Basophils # (Manual) PT INR D-Dimer ABG pH POC ABG pCO2 POC ABG pO2 ABG pO2 ABG HCO3 ABG O2 Saturation ABG Base Excess ABG Hemoglobin ABG Oxyhemoglobin ABG Potassium ABG Glucose Oxyhemoglobin Carboxyhemoglobin Sodium Potassium Chloride Carbon Dioxide BUN Creatinine Glucose POC Glucose 134 H 107 H 122 H Calcium Ferritin Total Bilirubin Alkaline Phosphatase Lactate Dehydrogenase Total Creatine Kinase CK-MB (CK-2) Rel Index Troponin T C-Reactive Protein Total Protein Albumin Prealbumin LDL Cholesterol Direct HDL Cholesterol Arterial Blood Glucose Arterial Blood Ionized Calcium Urine WBC (Auto) 05/16/20 05/16/20 05/18/20 11:57 23:51 11:18 WBC RBC Hgb Hct MCV MCH RDW Plt Count Lymph % (Auto) [place] % (Auto) Eos % (Auto) Lymph # (Auto) [place] # (Auto) Eos # (Auto) Seg Neutrophils % Seg Neuts % (Manual) Lymphocytes % (Manual) Monocytes % (Manual) Basophils % (Manual) Seg Neutrophils # Seg Neutrophils # Man Lymphocytes # (Manual) Monocytes # (Manual) Eosinophils # (Manual) Basophils # (Manual) PT INR D-Dimer ABG pH POC ABG pCO2 POC ABG pO2 ABG pO2 ABG HCO3 ABG O2 Saturation ABG Base Excess ABG Hemoglobin ABG Oxyhemoglobin ABG Potassium ABG Glucose Oxyhemoglobin Carboxyhemoglobin Sodium Potassium Chloride Carbon Dioxide BUN Creatinine Glucose POC Glucose 108 H 111 H 115 H Calcium Ferritin Total Bilirubin Alkaline Phosphatase Lactate Dehydrogenase Total Creatine Kinase CK-MB (CK-2) Rel Index Troponin T C-Reactive Protein Total Protein Albumin Prealbumin LDL Cholesterol Direct HDL Cholesterol Arterial Blood Glucose Arterial Blood Ionized Calcium Urine WBC (Auto) 05/18/20 05/18/20 05/19/20 16:18 23:38 05:07 WBC RBC Hgb Hct MCV MCH RDW Plt Count Lymph % (Auto) [place] % (Auto) Eos % (Auto) Lymph # (Auto) [place] # (Auto) Eos # (Auto) Seg Neutrophils % Seg Neuts % (Manual) Lymphocytes % (Manual) Monocytes % (Manual) Basophils % (Manual) Seg Neutrophils # Seg Neutrophils # Man Lymphocytes # (Manual) Monocytes # (Manual) Eosinophils # (Manual) Basophils # (Manual) PT INR D-Dimer ABG pH POC ABG pCO2 POC ABG pO2 ABG pO2 ABG HCO3 ABG O2 Saturation ABG Base Excess ABG Hemoglobin ABG Oxyhemoglobin ABG Potassium ABG Glucose Oxyhemoglobin Carboxyhemoglobin Sodium Potassium Chloride Carbon Dioxide BUN Creatinine Glucose POC Glucose 110 H 128 H 121 H Calcium Ferritin Total Bilirubin Alkaline Phosphatase Lactate Dehydrogenase Total Creatine Kinase CK-MB (CK-2) Rel Index Troponin T C-Reactive Protein Total Protein Albumin Prealbumin LDL Cholesterol Direct HDL Cholesterol Arterial Blood Glucose Arterial Blood Ionized Calcium Urine WBC (Auto) 05/19/20 05/19/20 05/19/20 11:36 16:49 23:17 WBC RBC Hgb Hct MCV MCH RDW Plt Count Lymph % (Auto) [place] % (Auto) Eos % (Auto) Lymph # (Auto) [place] # (Auto) Eos # (Auto) Seg Neutrophils % Seg Neuts % (Manual) Lymphocytes % (Manual) Monocytes % (Manual) Basophils % (Manual) Seg Neutrophils # Seg Neutrophils # Man Lymphocytes # (Manual) Monocytes # (Manual) Eosinophils # (Manual) Basophils # (Manual) PT INR D-Dimer ABG pH POC ABG pCO2 POC ABG pO2 ABG pO2 ABG HCO3 ABG O2 Saturation ABG Base Excess ABG Hemoglobin ABG Oxyhemoglobin ABG Potassium ABG Glucose Oxyhemoglobin Carboxyhemoglobin Sodium Potassium Chloride Carbon Dioxide BUN Creatinine Glucose POC Glucose 120 H 110 H 122 H Calcium Ferritin Total Bilirubin Alkaline Phosphatase Lactate Dehydrogenase Total Creatine Kinase CK-MB (CK-2) Rel Index Troponin T C-Reactive Protein Total Protein Albumin Prealbumin LDL Cholesterol Direct HDL Cholesterol Arterial Blood Glucose Arterial Blood Ionized Calcium Urine WBC (Auto) 05/20/20 05/20/20 05/21/20 05:17 23:55 04:18 WBC RBC Hgb 11.2 L Hct 35.4 L MCV 81 L MCH 25 L RDW 18.2 H Plt Count 458 H Lymph % (Auto) [place] % (Auto) 8.8 H Eos % (Auto) 7.2 H Lymph # (Auto) [place] # (Auto) Eos # (Auto) 0.6 H Seg Neutrophils % Seg Neuts % (Manual) Lymphocytes % (Manual) Monocytes % (Manual) Basophils % (Manual) Seg Neutrophils # Seg Neutrophils # Man Lymphocytes # (Manual) Monocytes # (Manual) Eosinophils # (Manual) Basophils # (Manual) PT INR D-Dimer ABG pH POC ABG pCO2 POC ABG pO2 ABG pO2 ABG HCO3 ABG O2 Saturation ABG Base Excess ABG Hemoglobin ABG Oxyhemoglobin ABG Potassium ABG Glucose Oxyhemoglobin Carboxyhemoglobin Sodium Potassium Chloride Carbon Dioxide BUN Creatinine Glucose POC Glucose 133 H 128 H Calcium Ferritin Total Bilirubin Alkaline Phosphatase Lactate Dehydrogenase Total Creatine Kinase CK-MB (CK-2) Rel Index Troponin T C-Reactive Protein Total Protein Albumin Prealbumin LDL Cholesterol Direct HDL Cholesterol Arterial Blood Glucose Arterial Blood Ionized Calcium Urine WBC (Auto) 05/21/20 05/21/20 05/21/20 04:18 05:02 23:53 WBC RBC Hgb Hct MCV MCH RDW Plt Count Lymph % (Auto) [place] % (Auto) Eos % (Auto) Lymph # (Auto) [place] # (Auto) Eos # (Auto) Seg Neutrophils % Seg Neuts % (Manual) Lymphocytes % (Manual) Monocytes % (Manual) Basophils % (Manual) Seg Neutrophils # Seg Neutrophils # Man Lymphocytes # (Manual) Monocytes # (Manual) Eosinophils # (Manual) Basophils # (Manual) PT INR D-Dimer ABG pH POC ABG pCO2 POC ABG pO2 ABG pO2 ABG HCO3 ABG O2 Saturation ABG Base Excess ABG Hemoglobin ABG Oxyhemoglobin ABG Potassium ABG Glucose Oxyhemoglobin Carboxyhemoglobin Sodium Potassium Chloride 97.2 L Carbon Dioxide 35 H BUN Creatinine < 0.2 L Glucose 128 H POC Glucose 125 H 114 H Calcium Ferritin Total Bilirubin Alkaline Phosphatase Lactate Dehydrogenase Total Creatine Kinase CK-MB (CK-2) Rel Index Troponin T C-Reactive Protein Total Protein Albumin Prealbumin LDL Cholesterol Direct HDL Cholesterol Arterial Blood Glucose Arterial Blood Ionized Calcium Urine WBC (Auto) 05/22/20 05/22/20 05/23/20 05:21 11:35 00:06 WBC RBC Hgb Hct MCV MCH RDW Plt Count Lymph % (Auto) [place] % (Auto) Eos % (Auto) Lymph # (Auto) [place] # (Auto) Eos # (Auto) Seg Neutrophils % Seg Neuts % (Manual) Lymphocytes % (Manual) Monocytes % (Manual) Basophils % (Manual) Seg Neutrophils # Seg Neutrophils # Man Lymphocytes # (Manual) Monocytes # (Manual) Eosinophils # (Manual) Basophils # (Manual) PT INR D-Dimer ABG pH POC ABG pCO2 POC ABG pO2 ABG pO2 ABG HCO3 ABG O2 Saturation ABG Base Excess ABG Hemoglobin ABG Oxyhemoglobin ABG Potassium ABG Glucose Oxyhemoglobin Carboxyhemoglobin Sodium Potassium Chloride Carbon Dioxide BUN Creatinine Glucose POC Glucose 127 H 114 H 115 H Calcium Ferritin Total Bilirubin Alkaline Phosphatase Lactate Dehydrogenase Total Creatine Kinase CK-MB (CK-2) Rel Index Troponin T C-Reactive Protein Total Protein Albumin Prealbumin LDL Cholesterol Direct HDL Cholesterol Arterial Blood Glucose Arterial Blood Ionized Calcium Urine WBC (Auto) 05/23/20 05/23/20 05/23/20 05:44 12:07 17:59 WBC RBC Hgb Hct MCV MCH RDW Plt Count Lymph % (Auto) [place] % (Auto) Eos % (Auto) Lymph # (Auto) [place] # (Auto) Eos # (Auto) Seg Neutrophils % Seg Neuts % (Manual) Lymphocytes % (Manual) Monocytes % (Manual) Basophils % (Manual) Seg Neutrophils # Seg Neutrophils # Man Lymphocytes # (Manual) Monocytes # (Manual) Eosinophils # (Manual) Basophils # (Manual) PT INR D-Dimer ABG pH POC ABG pCO2 POC ABG pO2 ABG pO2 ABG HCO3 ABG O2 Saturation ABG Base Excess ABG Hemoglobin ABG Oxyhemoglobin ABG Potassium ABG Glucose Oxyhemoglobin Carboxyhemoglobin Sodium Potassium Chloride Carbon Dioxide BUN Creatinine Glucose POC Glucose 110 H 128 H 125 H Calcium Ferritin Total Bilirubin Alkaline Phosphatase Lactate Dehydrogenase Total Creatine Kinase CK-MB (CK-2) Rel Index Troponin T C-Reactive Protein Total Protein Albumin Prealbumin LDL Cholesterol Direct HDL Cholesterol Arterial Blood Glucose Arterial Blood Ionized Calcium Urine WBC (Auto) 05/24/20 05/24/20 05/25/20 05:09 23:05 05:33 WBC RBC Hgb Hct MCV MCH RDW Plt Count Lymph % (Auto) [place] % (Auto) Eos % (Auto) Lymph # (Auto) [place] # (Auto) Eos # (Auto) Seg Neutrophils % Seg Neuts % (Manual) Lymphocytes % (Manual) Monocytes % (Manual) Basophils % (Manual) Seg Neutrophils # Seg Neutrophils # Man Lymphocytes # (Manual) Monocytes # (Manual) Eosinophils # (Manual) Basophils # (Manual) PT INR D-Dimer ABG pH POC ABG pCO2 POC ABG pO2 ABG pO2 ABG HCO3 ABG O2 Saturation ABG Base Excess ABG Hemoglobin ABG Oxyhemoglobin ABG Potassium ABG Glucose Oxyhemoglobin Carboxyhemoglobin Sodium Potassium Chloride Carbon Dioxide BUN Creatinine Glucose POC Glucose 115 H 113 H 118 H Calcium Ferritin Total Bilirubin Alkaline Phosphatase Lactate Dehydrogenase Total Creatine Kinase CK-MB (CK-2) Rel Index Troponin T C-Reactive Protein Total Protein Albumin Prealbumin LDL Cholesterol Direct HDL Cholesterol Arterial Blood Glucose Arterial Blood Ionized Calcium Urine WBC (Auto) 05/26/20 05/26/20 05/26/20 05:28 05:28 06:12 WBC 11.7 H RBC Hgb 10.4 L Hct 32.8 L MCV 79 L MCH 25 L RDW 18.2 H Plt Count Lymph % (Auto) [place] % (Auto) 7.5 H Eos % (Auto) Lymph # (Auto) [place] # (Auto) 0.9 H Eos # (Auto) Seg Neutrophils % 74.9 H Seg Neuts % (Manual) Lymphocytes % (Manual) Monocytes % (Manual) Basophils % (Manual) Seg Neutrophils # 8.8 H Seg Neutrophils # Man Lymphocytes # (Manual) Monocytes # (Manual) Eosinophils # (Manual) Basophils # (Manual) PT INR D-Dimer ABG pH POC ABG pCO2 POC ABG pO2 ABG pO2 ABG HCO3 ABG O2 Saturation ABG Base Excess ABG Hemoglobin ABG Oxyhemoglobin ABG Potassium ABG Glucose Oxyhemoglobin Carboxyhemoglobin Sodium Potassium Chloride 95.0 L Carbon Dioxide 39 H BUN Creatinine < 0.2 L Glucose 111 H POC Glucose 107 H Calcium Ferritin Total Bilirubin Alkaline Phosphatase Lactate Dehydrogenase Total Creatine Kinase CK-MB (CK-2) Rel Index Troponin T C-Reactive Protein Total Protein Albumin Prealbumin LDL Cholesterol Direct HDL Cholesterol Arterial Blood Glucose Arterial Blood Ionized Calcium Urine WBC (Auto) 05/26/20 05/27/20 05/27/20 12:00 01:08 05:32 WBC RBC Hgb Hct MCV MCH RDW Plt Count Lymph % (Auto) [place] % (Auto) Eos % (Auto) Lymph # (Auto) [place] # (Auto) Eos # (Auto) Seg Neutrophils % Seg Neuts % (Manual) Lymphocytes % (Manual) Monocytes % (Manual) Basophils % (Manual) Seg Neutrophils # Seg Neutrophils # Man Lymphocytes # (Manual) Monocytes # (Manual) Eosinophils # (Manual) Basophils # (Manual) PT INR D-Dimer ABG pH POC ABG pCO2 POC ABG pO2 ABG pO2 ABG HCO3 ABG O2 Saturation ABG Base Excess ABG Hemoglobin ABG Oxyhemoglobin ABG Potassium ABG Glucose Oxyhemoglobin Carboxyhemoglobin Sodium Potassium Chloride Carbon Dioxide BUN Creatinine Glucose POC Glucose 135 H 121 H 127 H Calcium Ferritin Total Bilirubin Alkaline Phosphatase Lactate Dehydrogenase Total Creatine Kinase CK-MB (CK-2) Rel Index Troponin T C-Reactive Protein Total Protein Albumin Prealbumin LDL Cholesterol Direct HDL Cholesterol Arterial Blood Glucose Arterial Blood Ionized Calcium Urine WBC (Auto) 05/27/20 05/27/20 05/27/20 11:53 17:28 23:33 WBC RBC Hgb Hct MCV MCH RDW Plt Count Lymph % (Auto) [place] % (Auto) Eos % (Auto) Lymph # (Auto) [place] # (Auto) Eos # (Auto) Seg Neutrophils % Seg Neuts % (Manual) Lymphocytes % (Manual) Monocytes % (Manual) Basophils % (Manual) Seg Neutrophils # Seg Neutrophils # Man Lymphocytes # (Manual) Monocytes # (Manual) Eosinophils # (Manual) Basophils # (Manual) PT INR D-Dimer ABG pH POC ABG pCO2 POC ABG pO2 ABG pO2 ABG HCO3 ABG O2 Saturation ABG Base Excess ABG Hemoglobin ABG Oxyhemoglobin ABG Potassium ABG Glucose Oxyhemoglobin Carboxyhemoglobin Sodium Potassium Chloride Carbon Dioxide BUN Creatinine Glucose POC Glucose 135 H 118 H 121 H Calcium Ferritin Total Bilirubin Alkaline Phosphatase Lactate Dehydrogenase Total Creatine Kinase CK-MB (CK-2) Rel Index Troponin T C-Reactive Protein Total Protein Albumin Prealbumin LDL Cholesterol Direct HDL Cholesterol Arterial Blood Glucose Arterial Blood Ionized Calcium Urine WBC (Auto) 01/31/21 01/31/21 05:13 11:45 WBC RBC Hgb Hct MCV MCH RDW Plt Count Lymph % (Auto) [place] % (Auto) Eos % (Auto) Lymph # (Auto) [place] # (Auto) Eos # (Auto) Seg Neutrophils % Seg Neuts % (Manual) Lymphocytes % (Manual) Monocytes % (Manual) Basophils % (Manual) Seg Neutrophils # Seg Neutrophils # Man Lymphocytes # (Manual) Monocytes # (Manual) Eosinophils # (Manual) Basophils # (Manual) PT INR D-Dimer ABG pH POC ABG pCO2 POC ABG pO2 ABG pO2 ABG HCO3 ABG O2 Saturation ABG Base Excess ABG Hemoglobin ABG Oxyhemoglobin ABG Potassium ABG Glucose Oxyhemoglobin Carboxyhemoglobin Sodium Potassium Chloride Carbon Dioxide BUN Creatinine Glucose POC Glucose 116 H 115 H Calcium Ferritin Total Bilirubin Alkaline Phosphatase Lactate Dehydrogenase Total Creatine Kinase CK-MB (CK-2) Rel Index Troponin T C-Reactive Protein Total Protein Albumin Prealbumin LDL Cholesterol Direct HDL Cholesterol Arterial Blood Glucose Arterial Blood Ionized Calcium Urine WBC (Auto) Allied health notes reviewed: RT
[2020-05-28] MEDS: SENNOSIDES 8.6 MG TAB PO SCH (21:50)
[2020-05-28] MEDS: ZOLPIDEM 5 MG TAB PO PRN (21:50)
[2020-05-28] MEDS: ENOXAPARIN 40 MG/0.4 ML INJ SUB-Q SCH (21:51)
[2020-05-28] MEDS: ACETAMINOPHEN 325 MG TAB PO PRN (23:39)
[2020-05-29] MEDS: oxyCODONE /ACETAMINOPHEN 5-325MG TAB PO PRN ×2 (02:01→08:48)
[2020-05-29] MEDS: diphenhydrAMINE 25 MG CAP PO PRN (02:02)
[2020-05-29] MEDS: ALPRAZolam 0.5 MG TAB PO PRN ×2 (02:02→07:20)
[2020-05-29] MEDS: traMADol 50 MG TAB PO PRN (07:18)
[2020-05-29] MEDS: PREGABALIN 75 MG CAP PO SCH (08:45)
[2020-05-29] MEDS: LANSOPRAZOLE 30 MG SOLUTAB FEEDTUBE SCH (08:46)
[2020-05-29] MEDS: METOPROLOL TARTRATE 25 MG TAB PO SCH (08:47)
[2020-05-29] MEDS: GLYCOPYRROLATE 1 MG TAB PO SCH (08:47)
[2020-05-29] MEDS: BACLOFEN 10 MG TAB PO SCH (08:47)
[2020-05-29] MEDS: DOCUSATE SODIUM 100 MG/10 ML ORAL LIQD FEEDTUBE SCH (08:49)
[2020-05-29] MEDS: TAMSULOSIN 0.4 MG CAP PO SCH (08:49)
[2020-05-29] MEDS: LIDOCAINE 5% 1 EACH PATCH TD SCH (08:49)
[2020-05-29 09:32] VITALS: BP 134/87
--- NOTE | 2020-05-29 09:36 | Progress Note ---
Assessment and Plan Patient Awake . Patient is resting on pressure support mechanical ventilation, Pressure support 10, FIO2 30%, PEEP 6 and O2 saturation running 98%. Recommend Continue spontaneous breathing trials as tolerated.Respiratory therapy told me, Patient resisting to go on T tube trial ' Recommend to decrease pressure support to 5.Patient afebrile and has no leukocytosis. Chest xray done 05/02/20 reported Interval worsening of right lung base opacity now appears to be pleural parenchymal. This may be a worsened infectious process or development of right-sided pleural effusion and worsened right lung base atelectasis. Left lung base opacity is stable. Tracheostomy in stable position. Patient right lung base infiltrate reported intervel worsening, patient has no leukocytosis, recommend to place him antibiotic like zosyn. Repeat chest xray 05/11/20 reported Mild interval improvement in the hazy opacity at the right lung base as described. I suspect this represents an improving atelectasis over effusion. - Patient Problems (1) Acute on chronic respiratory failure with hypoxia and hypercapnia Current Visit: Yes Status: Acute Plan to address problem: Patient is resting on pressure support 10, FIO2 30%, PEEP 6. Albuterol inhaler 2 puffs po qid. Continue S/C Lovenox. Continue prevacid. continue spontaneous breathing trials and wean him to Trach collar.. (2) Bleeding from wound Current Visit: Yes Status: Acute Plan to address problem: Management primary care , surgery and wound care. (3) Elevated d-dimer Current Visit: Yes Status: Acute Plan to address problem: Patients venous doppler studies of legs, CTA chest reported Negative for VTE. Patient is on S/C Lovenox 40 mg qd. (4) Elevated troponin Current Visit: Yes Status: Acute Plan to address problem: Management as per primary care and cardiology (5) NSTEMI (non-ST elevated myocardial infarction) Current Visit: Yes Status: Acute Plan to address problem: Management as per cardiology. (6) Pneumonia Current Visit: Yes Status: Acute Plan to address problem: Patient afebrile . Has mild leukocytosis. Repeat Chest xray done 05/02/20 reported Interval worsening of right lung base opacity now appears to be pleural parenchymal. This may be a worsened infectious process or development of right-sided pleural effusion and worsened right lung base atelectasis. Left lung base opacity is stable. Tracheostomy in stable position. Patient right lung base infiltrate reported intervel worsening, patient has no leukocytosis, recommend to place him antibiotic like zosyn. Repeating chest xray and ABGs. Repeat chest xray 05/11/20 reported Mild interval improvement in the hazy opacity at the right lung base as described. I suspect this represents an improving atelectasis over effusion. Subjective Date of service: 05/29/20 Principal diagnosis: Ac on Ch Hypercapnic & hypoxemic Resp Failure; Severe Sepsis; Jamar PNA; ALS Interval history: Patient Awake . Patient is resting on pressure support mechanical ventilation, Pressure support 10, FIO2 30%, PEEP 6 and O2 saturation running 98%. Recommend Continue spontaneous breathing trials as tolerated.Respiratory therapy told me, Patient resisting to go on T tube trial ' Recommend to decrease pressure support to 5.Patient afebrile and has no leukocytosis. Chest xray done 05/02/20 reported Interval worsening of right lung base opacity now appears to be pleural parenchymal. This may be a worsened infectious process or development of right-sided pleural effusion and worsened right lung base atelectasis. Left lung base opacity is stable. Tracheostomy in stable position. Patient right lung base infiltrate reported intervel worsening, patient has no leukocytosis, recommend to place him antibiotic like zosyn. Repeat chest xray 05/11/20 reported Mild interval improvement in the hazy opacity at the right lung base as described. I suspect this represents an improving atelectasis over effusion. Objective Vital Signs - 12hr 05/28/20 05/28/20 05/28/20 21:36 21:51 22:00 Temperature Pulse Rate 111 H 113 H Respiratory 18 18 Rate Respiratory 16 Rate [Back] Blood Pressure 110/76 118/62 O2 Sat by Pulse 96 Oximetry O2 Sat by Pulse Oximetry [ Assessment] 05/28/20 05/28/20 05/28/20 22:01 23:00 23:01 Temperature Pulse Rate 106 H Respiratory 20 17 16 Rate Respiratory Rate [Back] Blood Pressure 122/86 O2 Sat by Pulse 98 Oximetry O2 Sat by Pulse Oximetry [ Assessment] 05/28/20 05/29/20 05/29/20 23:39 00:00 00:08 Temperature 98.1 F Pulse Rate 101 H 75 Respiratory 20 16 Rate Respiratory Rate [Back] Blood Pressure 122/87 O2 Sat by Pulse 99 Oximetry O2 Sat by Pulse Oximetry [ Assessment] 05/29/20 05/29/20 05/29/20 00:39 01:01 02:01 Temperature Pulse Rate 79 107 H Respiratory 16 12 22 Rate Respiratory Rate [Back] Blood Pressure 127/82 129/90 O2 Sat by Pulse 99 97 Oximetry O2 Sat by Pulse Oximetry [ Assessment] 05/29/20 05/29/20 05/29/20 03:00 03:01 03:27 Temperature Pulse Rate 91 H 93 H Respiratory 15 16 Rate Respiratory Rate [Back] Blood Pressure 137/87 127/77 O2 Sat by Pulse 98 99 Oximetry O2 Sat by Pulse Oximetry [ Assessment] 05/29/20 05/29/20 05/29/20 03:31 03:58 04:00 Temperature 97.9 F Pulse Rate 81 Respiratory 17 Rate Respiratory Rate [Back] Blood Pressure 125/83 O2 Sat by Pulse 97 Oximetry O2 Sat by Pulse 98 Oximetry [ Assessment] 05/29/20 05/29/20 05/29/20 05:00 06:00 07:00 Temperature Pulse Rate 85 102 H 96 H Respiratory 12 16 19 Rate Respiratory Rate [Back] Blood Pressure 120/76 115/81 120/85 O2 Sat by Pulse 96 97 98 Oximetry O2 Sat by Pulse Oximetry [ Assessment] 05/29/20 05/29/20 05/29/20 07:18 08:00 08:30 Temperature 97.7 F Pulse Rate 106 H Respiratory 16 13 Rate Respiratory Rate [Back] Blood Pressure 131/87 O2 Sat by Pulse 99 Oximetry O2 Sat by Pulse 98 Oximetry [ Assessment] 05/29/20 05/29/20 05/29/20 08:47 08:48 09:00 Temperature Pulse Rate 124 H 110 H Respiratory 22 22 Rate Respiratory Rate [Back] Blood Pressure 130/83 134/87 O2 Sat by Pulse 98 Oximetry O2 Sat by Pulse Oximetry [ Assessment] Constitutional: appears uncomfortable, other (thin middle aged male with mildly increased respiratory effort at rest on MVS) Eyes: non-icteric ENT: oropharynx moist, other (S/P Tracheostomy) Neck: supple, no lymphadenopathy, no JVD Effort: mildly labored Ascultation: Bilateral: diminished breath sounds (bases), wheezes, rhonchi (scant in bases) Percussion: Bilateral: not dull Cardiovascular: regular rate and rhythm, other (S1,S2, no murmurs) Gastrointestinal: normoactive bowel sounds, soft, non-tender, non-distended Integumentary: normal, decubitus ulcer (sacral / gluteal) Extremities: no cyanosis, no edema, pulses normal, other (atrophic looking limbs) Neurologic: pupils equal and round, other (motor strength in extremities 1-2/5, awake, alert, mouths words to make needs known) Psychiatric: depressed CBC and BMP: 05/26/20 05:28 05/26/20 05:28 ABG, PT/INR, D-dimer: ABG ABG pH 7.371 (7.320-7.450) 03/08/20 12:34 POC ABG pCO2 63.1 mmHg (32.0-48.0) H 03/08/20 12:34 ABG pCO2 60.1 mm Hg 03/06/20 04:34 POC ABG pO2 90.5 mmHg (83-108) 03/08/20 12:34 ABG pO2 88.6 mm Hg (80.0-90.0) 03/06/20 04:34 POC ABG HCO3 35.7 03/08/20 12:34 ABG O2 Saturation 97.0 % (95.0-99.0) 03/06/20 04:34 PT/INR, D-dimer PT 15.6 Sec. (12.2-14.9) H 02/24/20 09:19 INR 1.21 (0.87-1.13) H 02/24/20 09:19 D-Dimer 1311.96 ng/mlDDU (0-234) H 02/24/20 09:19 Abnormal lab findings: Abnormal Labs 02/24/20 02/24/20 02/24/20 09:19 09:19 09:19 WBC 20.2 H RBC 5.05 H Hgb Hct MCV MCH RDW 15.3 H Plt Count Lymph % (Auto) [place] % (Auto) Eos % (Auto) Lymph # (Auto) [place] # (Auto) Eos # (Auto) Seg Neutrophils % Seg Neuts % (Manual) 86.0 H Lymphocytes % (Manual) 1.0 L Monocytes % (Manual) Basophils % (Manual) Seg Neutrophils # Seg Neutrophils # Man 17.4 H Lymphocytes # (Manual) 0.2 L Monocytes # (Manual) Eosinophils # (Manual) Basophils # (Manual) PT 15.6 H INR 1.21 H D-Dimer 1311.96 H ABG pH POC ABG pCO2 POC ABG pO2 ABG pO2 ABG HCO3 ABG O2 Saturation ABG Base Excess ABG Hemoglobin ABG Oxyhemoglobin ABG Potassium ABG Glucose Oxyhemoglobin Carboxyhemoglobin Sodium 135 L Potassium 3.2 L Chloride 92.2 L Carbon Dioxide BUN 6 L Creatinine < 0.2 L Glucose 124 H POC Glucose Calcium Ferritin Total Bilirubin 2.30 H Alkaline Phosphatase 132 H Lactate Dehydrogenase Total Creatine Kinase CK-MB (CK-2) Rel Index Troponin T 0.080 H C-Reactive Protein Total Protein Albumin 3.6 L Prealbumin LDL Cholesterol Direct 41 L HDL Cholesterol Arterial Blood Glucose Arterial Blood Ionized Calcium Urine WBC (Auto) 02/24/20 02/24/20 02/24/20 09:19 09:58 10:01 WBC RBC Hgb Hct MCV MCH RDW Plt Count Lymph % (Auto) [place] % (Auto) Eos % (Auto) Lymph # (Auto) [place] # (Auto) Eos # (Auto) Seg Neutrophils % Seg Neuts % (Manual) Lymphocytes % (Manual) Monocytes % (Manual) Basophils % (Manual) Seg Neutrophils # Seg Neutrophils # Man Lymphocytes # (Manual) Monocytes # (Manual) Eosinophils # (Manual) Basophils # (Manual) PT INR D-Dimer ABG pH 7.176 L* POC ABG pCO2 POC ABG pO2 ABG pO2 91.2 H ABG HCO3 ABG O2 Saturation ABG Base Excess -4.6 L ABG Hemoglobin ABG Oxyhemoglobin ABG Potassium ABG Glucose Oxyhemoglobin 92.6 L Carboxyhemoglobin Sodium Potassium Chloride Carbon Dioxide BUN Creatinine Glucose POC Glucose Calcium Ferritin 1715.0 H Total Bilirubin Alkaline Phosphatase Lactate Dehydrogenase 303 H Total Creatine Kinase CK-MB (CK-2) Rel Index Troponin T C-Reactive Protein 26.10 H Total Protein Albumin Prealbumin LDL Cholesterol Direct HDL Cholesterol Arterial Blood Glucose Arterial Blood Ionized Calcium Urine WBC (Auto) 02/24/20 02/24/20 02/24/20 11:52 13:45 19:35 WBC RBC Hgb Hct MCV MCH RDW Plt Count Lymph % (Auto) [place] % (Auto) Eos % (Auto) Lymph # (Auto) [place] # (Auto) Eos # (Auto) Seg Neutrophils % Seg Neuts % (Manual) Lymphocytes % (Manual) Monocytes % (Manual) Basophils % (Manual) Seg Neutrophils # Seg Neutrophils # Man Lymphocytes # (Manual) Monocytes # (Manual) Eosinophils # (Manual) Basophils # (Manual) PT INR D-Dimer ABG pH 7.051 L* 7.300 L POC ABG pCO2 POC ABG pO2 ABG pO2 94.7 H 75.1 L ABG HCO3 18.0 L ABG O2 Saturation 93.5 L ABG Base Excess -6.8 L -7.8 L ABG Hemoglobin 13.2 L 11.9 L ABG Oxyhemoglobin ABG Potassium ABG Glucose Oxyhemoglobin 91.0 L 92.7 L Carboxyhemoglobin Sodium Potassium Chloride Carbon Dioxide BUN Creatinine Glucose POC Glucose Calcium Ferritin Total Bilirubin Alkaline Phosphatase Lactate Dehydrogenase Total Creatine Kinase CK-MB (CK-2) Rel Index Troponin T 0.034 H D C-Reactive Protein Total Protein Albumin Prealbumin LDL Cholesterol Direct HDL Cholesterol Arterial Blood Glucose Arterial Blood Ionized Calcium Urine WBC (Auto) 02/25/20 02/25/20 02/25/20 04:00 04:00 12:26 WBC 22.9 H RBC Hgb Hct MCV 83 L MCH 27 L RDW Plt Count 468 H Lymph % (Auto) [place] % (Auto) Eos % (Auto) Lymph # (Auto) [place] # (Auto) Eos # (Auto) Seg Neutrophils % Seg Neuts % (Manual) 89.0 H Lymphocytes % (Manual) 7.0 L Monocytes % (Manual) Basophils % (Manual) Seg Neutrophils # Seg Neutrophils # Man 20.4 H Lymphocytes # (Manual) Monocytes # (Manual) Eosinophils # (Manual) Basophils # (Manual) PT INR D-Dimer ABG pH POC ABG pCO2 POC ABG pO2 ABG pO2 ABG HCO3 ABG O2 Saturation ABG Base Excess ABG Hemoglobin ABG Oxyhemoglobin ABG Potassium 2.6 L ABG Glucose 142 H Oxyhemoglobin Carboxyhemoglobin Sodium Potassium 3.2 L Chloride Carbon Dioxide 18 L BUN Creatinine 0.2 L Glucose 114 H POC Glucose Calcium Ferritin Total Bilirubin Alkaline Phosphatase Lactate Dehydrogenase Total Creatine Kinase CK-MB (CK-2) Rel Index Troponin T C-Reactive Protein Total Protein Albumin 3.5 L Prealbumin LDL Cholesterol Direct HDL Cholesterol Arterial Blood Glucose 142 H Arterial Blood Ionized Calcium Urine WBC (Auto) 02/26/20 02/26/20 02/26/20 15:58 17:00 23:43 WBC RBC Hgb Hct MCV MCH RDW Plt Count Lymph % (Auto) [place] % (Auto) Eos % (Auto) Lymph # (Auto) [place] # (Auto) Eos # (Auto) Seg Neutrophils % Seg Neuts % (Manual) Lymphocytes % (Manual) Monocytes % (Manual) Basophils % (Manual) Seg Neutrophils # Seg Neutrophils # Man Lymphocytes # (Manual) Monocytes # (Manual) Eosinophils # (Manual) Basophils # (Manual) PT INR D-Dimer ABG pH 7.502 H POC ABG pCO2 POC ABG pO2 213.6 H ABG pO2 ABG HCO3 ABG O2 Saturation ABG Base Excess ABG Hemoglobin ABG Oxyhemoglobin 99.2 H ABG Potassium 2.9 L ABG Glucose 160 H Oxyhemoglobin Carboxyhemoglobin 0.4 L Sodium Potassium Chloride Carbon Dioxide BUN Creatinine Glucose POC Glucose 189 H 120 H Calcium Ferritin Total Bilirubin Alkaline Phosphatase Lactate Dehydrogenase Total Creatine Kinase CK-MB (CK-2) Rel Index Troponin T C-Reactive Protein Total Protein Albumin Prealbumin LDL Cholesterol Direct HDL Cholesterol Arterial Blood Glucose 160 H Arterial Blood Ionized Calcium 4.5 L Urine WBC (Auto) 02/27/20 02/27/20 02/27/20 05:00 07:04 17:45 WBC RBC Hgb Hct MCV MCH RDW Plt Count Lymph % (Auto) [place] % (Auto) Eos % (Auto) Lymph # (Auto) [place] # (Auto) Eos # (Auto) Seg Neutrophils % Seg Neuts % (Manual) Lymphocytes % (Manual) Monocytes % (Manual) Basophils % (Manual) Seg Neutrophils # Seg Neutrophils # Man Lymphocytes # (Manual) Monocytes # (Manual) Eosinophils # (Manual) Basophils # (Manual) PT INR D-Dimer ABG pH 7.524 H POC ABG pCO2 POC ABG pO2 ABG pO2 ABG HCO3 ABG O2 Saturation ABG Base Excess ABG Hemoglobin ABG Oxyhemoglobin ABG Potassium 3.0 L ABG Glucose 143 H Oxyhemoglobin Carboxyhemoglobin Sodium Potassium Chloride Carbon Dioxide BUN Creatinine Glucose POC Glucose 154 H 175 H Calcium Ferritin Total Bilirubin Alkaline Phosphatase Lactate Dehydrogenase Total Creatine Kinase CK-MB (CK-2) Rel Index Troponin T C-Reactive Protein Total Protein Albumin Prealbumin LDL Cholesterol Direct HDL Cholesterol Arterial Blood Glucose 143 H Arterial Blood Ionized Calcium Urine WBC (Auto) 02/27/20 02/28/20 02/28/20 Unknown 00:21 04:15 WBC 18.7 H RBC Hgb Hct MCV MCH RDW Plt Count Lymph % (Auto) 8.7 L [place] % (Auto) Eos % (Auto) Lymph # (Auto) [place] # (Auto) 1.2 H Eos # (Auto) Seg Neutrophils % 84.6 H Seg Neuts % (Manual) Lymphocytes % (Manual) Monocytes % (Manual) Basophils % (Manual) Seg Neutrophils # 15.9 H Seg Neutrophils # Man Lymphocytes # (Manual) Monocytes # (Manual) Eosinophils # (Manual) Basophils # (Manual) PT INR D-Dimer ABG pH POC ABG pCO2 POC ABG pO2 ABG pO2 ABG HCO3 ABG O2 Saturation ABG Base Excess ABG Hemoglobin ABG Oxyhemoglobin ABG Potassium ABG Glucose Oxyhemoglobin Carboxyhemoglobin Sodium Potassium 2.9 L* Chloride Carbon Dioxide 33 H D BUN Creatinine < 0.2 L Glucose 157 H POC Glucose 134 H Calcium Ferritin Total Bilirubin Alkaline Phosphatase Lactate Dehydrogenase Total Creatine Kinase CK-MB (CK-2) Rel Index Troponin T C-Reactive Protein Total Protein Albumin Prealbumin LDL Cholesterol Direct HDL Cholesterol Arterial Blood Glucose Arterial Blood Ionized Calcium Urine WBC (Auto) 02/28/20 02/28/20 02/28/20 04:15 05:16 05:39 WBC RBC Hgb Hct MCV MCH RDW Plt Count Lymph % (Auto) [place] % (Auto) Eos % (Auto) Lymph # (Auto) [place] # (Auto) Eos # (Auto) Seg Neutrophils % Seg Neuts % (Manual) Lymphocytes % (Manual) Monocytes % (Manual) Basophils % (Manual) Seg Neutrophils # Seg Neutrophils # Man Lymphocytes # (Manual) Monocytes # (Manual) Eosinophils # (Manual) Basophils # (Manual) PT INR D-Dimer ABG pH POC ABG pCO2 POC ABG pO2 ABG pO2 142.9 H ABG HCO3 34.1 H ABG O2 Saturation ABG Base Excess 8.3 H ABG Hemoglobin ABG Oxyhemoglobin ABG Potassium ABG Glucose Oxyhemoglobin Carboxyhemoglobin Sodium 151 H Potassium Chloride Carbon Dioxide 32 H BUN Creatinine 0.2 L Glucose 167 H POC Glucose 138 H Calcium Ferritin Total Bilirubin Alkaline Phosphatase Lactate Dehydrogenase Total Creatine Kinase CK-MB (CK-2) Rel Index Troponin T C-Reactive Protein Total Protein Albumin Prealbumin LDL Cholesterol Direct HDL Cholesterol Arterial Blood Glucose Arterial Blood Ionized Calcium Urine WBC (Auto) 02/28/20 02/28/20 02/28/20 11:05 11:33 12:54 WBC RBC Hgb Hct MCV MCH RDW Plt Count Lymph % (Auto) [place] % (Auto) Eos % (Auto) Lymph # (Auto) [place] # (Auto) Eos # (Auto) Seg Neutrophils % Seg Neuts % (Manual) Lymphocytes % (Manual) Monocytes % (Manual) Basophils % (Manual) Seg Neutrophils # Seg Neutrophils # Man Lymphocytes # (Manual) Monocytes # (Manual) Eosinophils # (Manual) Basophils # (Manual) PT INR D-Dimer ABG pH POC ABG pCO2 POC ABG pO2 ABG pO2 ABG HCO3 ABG O2 Saturation ABG Base Excess ABG Hemoglobin ABG Oxyhemoglobin ABG Potassium ABG Glucose Oxyhemoglobin Carboxyhemoglobin Sodium Potassium Chloride Carbon Dioxide BUN Creatinine Glucose POC Glucose 160 H Calcium Ferritin Total Bilirubin Alkaline Phosphatase Lactate Dehydrogenase Total Creatine Kinase CK-MB (CK-2) Rel Index Troponin T C-Reactive Protein 4.70 H Total Protein Albumin Prealbumin 0.090 L LDL Cholesterol Direct HDL Cholesterol Arterial Blood Glucose Arterial Blood Ionized Calcium Urine WBC (Auto) 02/28/20 02/29/20 02/29/20 17:34 00:44 04:05 WBC 19.6 H RBC Hgb Hct MCV MCH 27 L RDW 15.4 H Plt Count Lymph % (Auto) [place] % (Auto) Eos % (Auto) Lymph # (Auto) [place] # (Auto) Eos # (Auto) Seg Neutrophils % Seg Neuts % (Manual) 86.0 H Lymphocytes % (Manual) 7.0 L Monocytes % (Manual) Basophils % (Manual) Seg Neutrophils # Seg Neutrophils # Man 16.9 H Lymphocytes # (Manual) Monocytes # (Manual) 1.2 H Eosinophils # (Manual) Basophils # (Manual) PT INR D-Dimer ABG pH POC ABG pCO2 POC ABG pO2 ABG pO2 ABG HCO3 ABG O2 Saturation ABG Base Excess ABG Hemoglobin ABG Oxyhemoglobin ABG Potassium ABG Glucose Oxyhemoglobin Carboxyhemoglobin Sodium Potassium Chloride Carbon Dioxide BUN Creatinine Glucose POC Glucose 136 H 156 H Calcium Ferritin Total Bilirubin Alkaline Phosphatase Lactate Dehydrogenase Total Creatine Kinase CK-MB (CK-2) Rel Index Troponin T C-Reactive Protein Total Protein Albumin Prealbumin LDL Cholesterol Direct HDL Cholesterol Arterial Blood Glucose Arterial Blood Ionized Calcium Urine WBC (Auto) 02/29/20 02/29/20 02/29/20 04:05 05:14 05:33 WBC RBC Hgb Hct MCV MCH RDW Plt Count Lymph % (Auto) [place] % (Auto) Eos % (Auto) Lymph # (Auto) [place] # (Auto) Eos # (Auto) Seg Neutrophils % Seg Neuts % (Manual) Lymphocytes % (Manual) Monocytes % (Manual) Basophils % (Manual) Seg Neutrophils # Seg Neutrophils # Man Lymphocytes # (Manual) Monocytes # (Manual) Eosinophils # (Manual) Basophils # (Manual) PT INR D-Dimer ABG pH POC ABG pCO2 54.3 H POC ABG pO2 124.8 H ABG pO2 ABG HCO3 ABG O2 Saturation ABG Base Excess ABG Hemoglobin ABG Oxyhemoglobin ABG Potassium ABG Glucose 185 H Oxyhemoglobin Carboxyhemoglobin Sodium 148 H Potassium Chloride Carbon Dioxide 33 H BUN Creatinine < 0.2 L Glucose 173 H POC Glucose 152 H Calcium Ferritin Total Bilirubin Alkaline Phosphatase Lactate Dehydrogenase Total Creatine Kinase CK-MB (CK-2) Rel Index Troponin T C-Reactive Protein Total Protein Albumin Prealbumin LDL Cholesterol Direct HDL Cholesterol Arterial Blood Glucose 185 H Arterial Blood Ionized Calcium Urine WBC (Auto) 03/01/20 03/01/20 03/01/20 00:00 03:45 04:33 WBC 23.1 H RBC Hgb Hct MCV MCH 27 L RDW 15.3 H Plt Count Lymph % (Auto) [place] % (Auto) Eos % (Auto) Lymph # (Auto) [place] # (Auto) Eos # (Auto) Seg Neutrophils % Seg Neuts % (Manual) 92.0 H Lymphocytes % (Manual) 6.0 L Monocytes % (Manual) Basophils % (Manual) Seg Neutrophils # Seg Neutrophils # Man 21.3 H Lymphocytes # (Manual) Monocytes # (Manual) Eosinophils # (Manual) 0.5 H Basophils # (Manual) PT INR D-Dimer ABG pH 7.492 H POC ABG pCO2 POC ABG pO2 ABG pO2 157.1 H ABG HCO3 32.3 H ABG O2 Saturation ABG Base Excess 8.1 H ABG Hemoglobin 13.2 L ABG Oxyhemoglobin ABG Potassium ABG Glucose Oxyhemoglobin Carboxyhemoglobin Sodium Potassium Chloride Carbon Dioxide BUN Creatinine Glucose POC Glucose 109 H Calcium Ferritin Total Bilirubin Alkaline Phosphatase Lactate Dehydrogenase Total Creatine Kinase CK-MB (CK-2) Rel Index Troponin T C-Reactive Protein Total Protein Albumin Prealbumin LDL Cholesterol Direct HDL Cholesterol Arterial Blood Glucose Arterial Blood Ionized Calcium Urine WBC (Auto) 03/01/20 03/01/20 03/01/20 04:33 05:29 12:32 WBC RBC Hgb Hct MCV MCH RDW Plt Count Lymph % (Auto) [place] % (Auto) Eos % (Auto) Lymph # (Auto) [place] # (Auto) Eos # (Auto) Seg Neutrophils % Seg Neuts % (Manual) Lymphocytes % (Manual) Monocytes % (Manual) Basophils % (Manual) Seg Neutrophils # Seg Neutrophils # Man Lymphocytes # (Manual) Monocytes # (Manual) Eosinophils # (Manual) Basophils # (Manual) PT INR D-Dimer ABG pH POC ABG pCO2 POC ABG pO2 ABG pO2 ABG HCO3 ABG O2 Saturation ABG Base Excess ABG Hemoglobin ABG Oxyhemoglobin ABG Potassium ABG Glucose Oxyhemoglobin Carboxyhemoglobin Sodium 146 H Potassium Chloride Carbon Dioxide 32 H BUN Creatinine < 0.2 L Glucose 120 H POC Glucose 120 H 128 H Calcium Ferritin Total Bilirubin Alkaline Phosphatase Lactate Dehydrogenase Total Creatine Kinase CK-MB (CK-2) Rel Index Troponin T C-Reactive Protein Total Protein Albumin Prealbumin LDL Cholesterol Direct HDL Cholesterol Arterial Blood Glucose Arterial Blood Ionized Calcium Urine WBC (Auto) 03/01/20 03/01/20 03/02/20 17:38 23:46 06:13 WBC RBC Hgb Hct MCV MCH RDW Plt Count Lymph % (Auto) [place] % (Auto) Eos % (Auto) Lymph # (Auto) [place] # (Auto) Eos # (Auto) Seg Neutrophils % Seg Neuts % (Manual) Lymphocytes % (Manual) Monocytes % (Manual) Basophils % (Manual) Seg Neutrophils # Seg Neutrophils # Man Lymphocytes # (Manual) Monocytes # (Manual) Eosinophils # (Manual) Basophils # (Manual) PT INR D-Dimer ABG pH POC ABG pCO2 POC ABG pO2 ABG pO2 ABG HCO3 ABG O2 Saturation ABG Base Excess ABG Hemoglobin ABG Oxyhemoglobin ABG Potassium ABG Glucose Oxyhemoglobin Carboxyhemoglobin Sodium Potassium Chloride Carbon Dioxide BUN Creatinine Glucose POC Glucose 114 H 121 H 120 H Calcium Ferritin Total Bilirubin Alkaline Phosphatase Lactate Dehydrogenase Total Creatine Kinase CK-MB (CK-2) Rel Index Troponin T C-Reactive Protein Total Protein Albumin Prealbumin LDL Cholesterol Direct HDL Cholesterol Arterial Blood Glucose Arterial Blood Ionized Calcium Urine WBC (Auto) 03/02/20 03/02/20 03/03/20 09:47 09:47 10:21 WBC 23.6 H RBC Hgb Hct MCV MCH RDW 15.3 H Plt Count 494 H Lymph % (Auto) [place] % (Auto) Eos % (Auto) Lymph # (Auto) [place] # (Auto) Eos # (Auto) Seg Neutrophils % Seg Neuts % (Manual) 85.0 H Lymphocytes % (Manual) 6.0 L Monocytes % (Manual) Basophils % (Manual) Seg Neutrophils # Seg Neutrophils # Man 20.1 H Lymphocytes # (Manual) Monocytes # (Manual) 1.7 H Eosinophils # (Manual) Basophils # (Manual) PT INR D-Dimer ABG pH POC ABG pCO2 POC ABG pO2 ABG pO2 ABG HCO3 ABG O2 Saturation ABG Base Excess ABG Hemoglobin ABG Oxyhemoglobin ABG Potassium 3.3 L ABG Glucose 158 H Oxyhemoglobin Carboxyhemoglobin Sodium Potassium Chloride Carbon Dioxide BUN Creatinine < 0.2 L Glucose 177 H POC Glucose Calcium Ferritin Total Bilirubin Alkaline Phosphatase Lactate Dehydrogenase Total Creatine Kinase CK-MB (CK-2) Rel Index Troponin T C-Reactive Protein Total Protein Albumin Prealbumin LDL Cholesterol Direct HDL Cholesterol Arterial Blood Glucose 158 H Arterial Blood Ionized Calcium Urine WBC (Auto) 03/03/20 03/04/20 03/04/20 21:30 00:00 12:23 WBC RBC Hgb Hct MCV MCH RDW Plt Count Lymph % (Auto) [place] % (Auto) Eos % (Auto) Lymph # (Auto) [place] # (Auto) Eos # (Auto) Seg Neutrophils % Seg Neuts % (Manual) Lymphocytes % (Manual) Monocytes % (Manual) Basophils % (Manual) Seg Neutrophils # Seg Neutrophils # Man Lymphocytes # (Manual) Monocytes # (Manual) Eosinophils # (Manual) Basophils # (Manual) PT INR D-Dimer ABG pH 7.328 L POC ABG pCO2 POC ABG pO2 ABG pO2 68.4 L ABG HCO3 35.0 H ABG O2 Saturation 93.9 L ABG Base Excess 6.8 H ABG Hemoglobin 12.7 L ABG Oxyhemoglobin ABG Potassium ABG Glucose Oxyhemoglobin 91.9 L Carboxyhemoglobin Sodium Potassium Chloride Carbon Dioxide BUN Creatinine Glucose POC Glucose 187 H 163 H Calcium Ferritin Total Bilirubin Alkaline Phosphatase Lactate Dehydrogenase Total Creatine Kinase CK-MB (CK-2) Rel Index Troponin T C-Reactive Protein Total Protein Albumin Prealbumin LDL Cholesterol Direct HDL Cholesterol Arterial Blood Glucose Arterial Blood Ionized Calcium Urine WBC (Auto) 03/04/20 03/04/20 03/05/20 18:15 21:30 06:02 WBC RBC Hgb Hct MCV MCH RDW Plt Count Lymph % (Auto) [place] % (Auto) Eos % (Auto) Lymph # (Auto) [place] # (Auto) Eos # (Auto) Seg Neutrophils % Seg Neuts % (Manual) Lymphocytes % (Manual) Monocytes % (Manual) Basophils % (Manual) Seg Neutrophils # Seg Neutrophils # Man Lymphocytes # (Manual) Monocytes # (Manual) Eosinophils # (Manual) Basophils # (Manual) PT INR D-Dimer ABG pH 7.297 L POC ABG pCO2 POC ABG pO2 ABG pO2 ABG HCO3 41.0 H ABG O2 Saturation ABG Base Excess 11.0 H ABG Hemoglobin 13.1 L ABG Oxyhemoglobin ABG Potassium ABG Glucose Oxyhemoglobin 94.5 L Carboxyhemoglobin Sodium Potassium Chloride Carbon Dioxide BUN Creatinine Glucose POC Glucose 192 H 127 H Calcium Ferritin Total Bilirubin Alkaline Phosphatase Lactate Dehydrogenase Total Creatine Kinase CK-MB (CK-2) Rel Index Troponin T C-Reactive Protein Total Protein Albumin Prealbumin LDL Cholesterol Direct HDL Cholesterol Arterial Blood Glucose Arterial Blood Ionized Calcium Urine WBC (Auto) 03/05/20 03/05/20 03/06/20 12:09 16:42 00:24 WBC RBC Hgb Hct MCV MCH RDW Plt Count Lymph % (Auto) [place] % (Auto) Eos % (Auto) Lymph # (Auto) [place] # (Auto) Eos # (Auto) Seg Neutrophils % Seg Neuts % (Manual) Lymphocytes % (Manual) Monocytes % (Manual) Basophils % (Manual) Seg Neutrophils # Seg Neutrophils # Man Lymphocytes # (Manual) Monocytes # (Manual) Eosinophils # (Manual) Basophils # (Manual) PT INR D-Dimer ABG pH POC ABG pCO2 POC ABG pO2 ABG pO2 ABG HCO3 ABG O2 Saturation ABG Base Excess ABG Hemoglobin ABG Oxyhemoglobin ABG Potassium ABG Glucose Oxyhemoglobin Carboxyhemoglobin Sodium Potassium Chloride Carbon Dioxide BUN Creatinine Glucose POC Glucose 147 H 114 H 134 H Calcium Ferritin Total Bilirubin Alkaline Phosphatase Lactate Dehydrogenase Total Creatine Kinase CK-MB (CK-2) Rel Index Troponin T C-Reactive Protein Total Protein Albumin Prealbumin LDL Cholesterol Direct HDL Cholesterol Arterial Blood Glucose Arterial Blood Ionized Calcium Urine WBC (Auto) 03/06/20 03/06/20 03/06/20 04:34 05:53 06:08 WBC 25.4 H RBC Hgb 10.5 L Hct 32.7 L MCV MCH 27 L RDW 15.3 H Plt Count 634 H Lymph % (Auto) [place] % (Auto) Eos % (Auto) Lymph # (Auto) [place] # (Auto) Eos # (Auto) Seg Neutrophils % Seg Neuts % (Manual) 88.0 H Lymphocytes % (Manual) 2.0 L Monocytes % (Manual) 8.0 H Basophils % (Manual) Seg Neutrophils # Seg Neutrophils # Man 22.4 H Lymphocytes # (Manual) 0.5 L Monocytes # (Manual) 2.0 H Eosinophils # (Manual) Basophils # (Manual) PT INR D-Dimer ABG pH POC ABG pCO2 POC ABG pO2 ABG pO2 ABG HCO3 37.9 H ABG O2 Saturation ABG Base Excess 11.4 H ABG Hemoglobin 10.6 L ABG Oxyhemoglobin ABG Potassium ABG Glucose Oxyhemoglobin 94.7 L Carboxyhemoglobin Sodium Potassium Chloride Carbon Dioxide BUN Creatinine Glucose POC Glucose 135 H Calcium Ferritin Total Bilirubin Alkaline Phosphatase Lactate Dehydrogenase Total Creatine Kinase CK-MB (CK-2) Rel Index Troponin T C-Reactive Protein Total Protein Albumin Prealbumin LDL Cholesterol Direct HDL Cholesterol Arterial Blood Glucose Arterial Blood Ionized Calcium Urine WBC (Auto) 03/06/20 03/06/20 03/06/20 06:08 12:19 19:10 WBC RBC Hgb Hct MCV MCH RDW Plt Count Lymph % (Auto) [place] % (Auto) Eos % (Auto) Lymph # (Auto) [place] # (Auto) Eos # (Auto) Seg Neutrophils % Seg Neuts % (Manual) Lymphocytes % (Manual) Monocytes % (Manual) Basophils % (Manual) Seg Neutrophils # Seg Neutrophils # Man Lymphocytes # (Manual) Monocytes # (Manual) Eosinophils # (Manual) Basophils # (Manual) PT INR D-Dimer ABG pH POC ABG pCO2 POC ABG pO2 ABG pO2 ABG HCO3 ABG O2 Saturation ABG Base Excess ABG Hemoglobin ABG Oxyhemoglobin ABG Potassium ABG Glucose Oxyhemoglobin Carboxyhemoglobin Sodium 150 H D Potassium Chloride Carbon Dioxide 39 H D BUN 23 H Creatinine < 0.2 L Glucose 144 H POC Glucose 169 H 152 H Calcium Ferritin Total Bilirubin Alkaline Phosphatase Lactate Dehydrogenase Total Creatine Kinase CK-MB (CK-2) Rel Index Troponin T C-Reactive Protein Total Protein Albumin 3.3 L Prealbumin LDL Cholesterol Direct HDL Cholesterol Arterial Blood Glucose Arterial Blood Ionized Calcium Urine WBC (Auto) 03/06/20 03/07/20 03/07/20 23:58 04:25 04:25 WBC 22.1 H RBC Hgb 10.9 L Hct 32.9 L MCV MCH RDW 15.5 H Plt Count 739 H Lymph % (Auto) 7.8 L [place] % (Auto) Eos % (Auto) Lymph # (Auto) [place] # (Auto) 1.3 H Eos # (Auto) Seg Neutrophils % 85.5 H Seg Neuts % (Manual) Lymphocytes % (Manual) Monocytes % (Manual) Basophils % (Manual) Seg Neutrophils # 18.9 H Seg Neutrophils # Man Lymphocytes # (Manual) Monocytes # (Manual) Eosinophils # (Manual) Basophils # (Manual) PT INR D-Dimer ABG pH POC ABG pCO2 POC ABG pO2 ABG pO2 ABG HCO3 ABG O2 Saturation ABG Base Excess ABG Hemoglobin ABG Oxyhemoglobin ABG Potassium ABG Glucose Oxyhemoglobin Carboxyhemoglobin Sodium 146 H Potassium Chloride Carbon Dioxide 37 H BUN Creatinine < 0.2 L Glucose 118 H POC Glucose 111 H Calcium Ferritin Total Bilirubin Alkaline Phosphatase Lactate Dehydrogenase Total Creatine Kinase CK-MB (CK-2) Rel Index Troponin T C-Reactive Protein Total Protein Albumin 3.7 L Prealbumin LDL Cholesterol Direct HDL Cholesterol Arterial Blood Glucose Arterial Blood Ionized Calcium Urine WBC (Auto) 03/07/20 03/07/20 03/07/20 05:20 17:45 23:32 WBC RBC Hgb Hct MCV MCH RDW Plt Count Lymph % (Auto) [place] % (Auto) Eos % (Auto) Lymph # (Auto) [place] # (Auto) Eos # (Auto) Seg Neutrophils % Seg Neuts % (Manual) Lymphocytes % (Manual) Monocytes % (Manual) Basophils % (Manual) Seg Neutrophils # Seg Neutrophils # Man Lymphocytes # (Manual) Monocytes # (Manual) Eosinophils # (Manual) Basophils # (Manual) PT INR D-Dimer ABG pH POC ABG pCO2 POC ABG pO2 ABG pO2 ABG HCO3 ABG O2 Saturation ABG Base Excess ABG Hemoglobin ABG Oxyhemoglobin ABG Potassium ABG Glucose Oxyhemoglobin Carboxyhemoglobin Sodium Potassium Chloride Carbon Dioxide BUN Creatinine Glucose POC Glucose 113 H 124 H 210 H Calcium Ferritin Total Bilirubin Alkaline Phosphatase Lactate Dehydrogenase Total Creatine Kinase CK-MB (CK-2) Rel Index Troponin T C-Reactive Protein Total Protein Albumin Prealbumin LDL Cholesterol Direct HDL Cholesterol Arterial Blood Glucose Arterial Blood Ionized Calcium Urine WBC (Auto) 03/08/20 03/08/20 03/08/20 05:35 06:43 06:43 WBC 28.9 H RBC 3.53 L Hgb 9.7 L Hct 30.3 L MCV MCH RDW 15.6 H Plt Count 578 H Lymph % (Auto) [place] % (Auto) Eos % (Auto) Lymph # (Auto) [place] # (Auto) Eos # (Auto) Seg Neutrophils % Seg Neuts % (Manual) 93.0 H Lymphocytes % (Manual) 4.0 L Monocytes % (Manual) Basophils % (Manual) Seg Neutrophils # Seg Neutrophils # Man 26.9 H Lymphocytes # (Manual) Monocytes # (Manual) Eosinophils # (Manual) Basophils # (Manual) PT INR D-Dimer ABG pH POC ABG pCO2 POC ABG pO2 ABG pO2 ABG HCO3 ABG O2 Saturation ABG Base Excess ABG Hemoglobin ABG Oxyhemoglobin ABG Potassium ABG Glucose Oxyhemoglobin Carboxyhemoglobin Sodium 146 H Potassium Chloride Carbon Dioxide 35 H BUN 34 H Creatinine 0.3 L D Glucose 125 H POC Glucose 147 H Calcium Ferritin Total Bilirubin Alkaline Phosphatase Lactate Dehydrogenase Total Creatine Kinase CK-MB (CK-2) Rel Index Troponin T C-Reactive Protein Total Protein 5.9 L Albumin 3.2 L Prealbumin LDL Cholesterol Direct HDL Cholesterol Arterial Blood Glucose Arterial Blood Ionized Calcium Urine WBC (Auto) 03/08/20 03/08/20 03/08/20 08:57 11:14 12:34 WBC RBC Hgb Hct MCV MCH RDW Plt Count Lymph % (Auto) [place] % (Auto) Eos % (Auto) Lymph # (Auto) [place] # (Auto) Eos # (Auto) Seg Neutrophils % Seg Neuts % (Manual) Lymphocytes % (Manual) Monocytes % (Manual) Basophils % (Manual) Seg Neutrophils # Seg Neutrophils # Man Lymphocytes # (Manual) Monocytes # (Manual) Eosinophils # (Manual) Basophils # (Manual) PT INR D-Dimer ABG pH POC ABG pCO2 63.1 H POC ABG pO2 ABG pO2 ABG HCO3 ABG O2 Saturation ABG Base Excess ABG Hemoglobin 10.9 L ABG Oxyhemoglobin ABG Potassium ABG Glucose 176 H Oxyhemoglobin Carboxyhemoglobin Sodium Potassium Chloride Carbon Dioxide BUN Creatinine Glucose POC Glucose 171 H Calcium Ferritin Total Bilirubin Alkaline Phosphatase Lactate Dehydrogenase Total Creatine Kinase CK-MB (CK-2) Rel Index Troponin T C-Reactive Protein Total Protein Albumin Prealbumin LDL Cholesterol Direct HDL Cholesterol Arterial Blood Glucose 176 H Arterial Blood Ionized Calcium 4.5 L Urine WBC (Auto) 10.0 H 03/08/20 03/08/20 03/09/20 18:02 23:43 05:49 WBC RBC Hgb Hct MCV MCH RDW Plt Count Lymph % (Auto) [place] % (Auto) Eos % (Auto) Lymph # (Auto) [place] # (Auto) Eos # (Auto) Seg Neutrophils % Seg Neuts % (Manual) Lymphocytes % (Manual) Monocytes % (Manual) Basophils % (Manual) Seg Neutrophils # Seg Neutrophils # Man Lymphocytes # (Manual) Monocytes # (Manual) Eosinophils # (Manual) Basophils # (Manual) PT INR D-Dimer ABG pH POC ABG pCO2 POC ABG pO2 ABG pO2 ABG HCO3 ABG O2 Saturation ABG Base Excess ABG Hemoglobin ABG Oxyhemoglobin ABG Potassium ABG Glucose Oxyhemoglobin Carboxyhemoglobin Sodium Potassium Chloride Carbon Dioxide BUN Creatinine Glucose POC Glucose 157 H 134 H 163 H Calcium Ferritin Total Bilirubin Alkaline Phosphatase Lactate Dehydrogenase Total Creatine Kinase CK-MB (CK-2) Rel Index Troponin T C-Reactive Protein Total Protein Albumin Prealbumin LDL Cholesterol Direct HDL Cholesterol Arterial Blood Glucose Arterial Blood Ionized Calcium Urine WBC (Auto) 03/09/20 03/09/20 03/09/20 08:35 08:35 12:11 WBC 23.4 H RBC 3.36 L Hgb 9.3 L Hct 28.8 L MCV MCH RDW 15.9 H Plt Count 521 H Lymph % (Auto) [place] % (Auto) Eos % (Auto) Lymph # (Auto) [place] # (Auto) Eos # (Auto) Seg Neutrophils % Seg Neuts % (Manual) 87.0 H Lymphocytes % (Manual) 4.0 L Monocytes % (Manual) 9.0 H Basophils % (Manual) Seg Neutrophils # Seg Neutrophils # Man 20.4 H Lymphocytes # (Manual) 0.9 L Monocytes # (Manual) 2.1 H Eosinophils # (Manual) Basophils # (Manual) PT INR D-Dimer ABG pH POC ABG pCO2 POC ABG pO2 ABG pO2 ABG HCO3 ABG O2 Saturation ABG Base Excess ABG Hemoglobin ABG Oxyhemoglobin ABG Potassium ABG Glucose Oxyhemoglobin Carboxyhemoglobin Sodium 147 H Potassium Chloride Carbon Dioxide 37 H BUN 63 H Creatinine Glucose 154 H POC Glucose 128 H Calcium Ferritin Total Bilirubin Alkaline Phosphatase Lactate Dehydrogenase Total Creatine Kinase CK-MB (CK-2) Rel Index Troponin T C-Reactive Protein Total Protein Albumin Prealbumin LDL Cholesterol Direct HDL Cholesterol Arterial Blood Glucose Arterial Blood Ionized Calcium Urine WBC (Auto) 03/09/20 03/10/20 03/10/20 17:51 00:25 05:41 WBC RBC Hgb Hct MCV MCH RDW Plt Count Lymph % (Auto) [place] % (Auto) Eos % (Auto) Lymph # (Auto) [place] # (Auto) Eos # (Auto) Seg Neutrophils % Seg Neuts % (Manual) Lymphocytes % (Manual) Monocytes % (Manual) Basophils % (Manual) Seg Neutrophils # Seg Neutrophils # Man Lymphocytes # (Manual) Monocytes # (Manual) Eosinophils # (Manual) Basophils # (Manual) PT INR D-Dimer ABG pH POC ABG pCO2 POC ABG pO2 ABG pO2 ABG HCO3 ABG O2 Saturation ABG Base Excess ABG Hemoglobin ABG Oxyhemoglobin ABG Potassium ABG Glucose Oxyhemoglobin Carboxyhemoglobin Sodium Potassium Chloride Carbon Dioxide BUN Creatinine Glucose POC Glucose 127 H 128 H 153 H Calcium Ferritin Total Bilirubin Alkaline Phosphatase Lactate Dehydrogenase Total Creatine Kinase CK-MB (CK-2) Rel Index Troponin T C-Reactive Protein Total Protein Albumin Prealbumin LDL Cholesterol Direct HDL Cholesterol Arterial Blood Glucose Arterial Blood Ionized Calcium Urine WBC (Auto) 03/10/20 03/10/20 03/10/20 06:14 06:14 12:02 WBC 18.3 H RBC 3.45 L Hgb 9.5 L Hct 29.5 L MCV MCH RDW 16.1 H Plt Count 494 H Lymph % (Auto) [place] % (Auto) Eos % (Auto) Lymph # (Auto) [place] # (Auto) Eos # (Auto) Seg Neutrophils % Seg Neuts % (Manual) 95.0 H Lymphocytes % (Manual) 1.0 L Monocytes % (Manual) Basophils % (Manual) Seg Neutrophils # Seg Neutrophils # Man 17.4 H Lymphocytes # (Manual) 0.2 L Monocytes # (Manual) Eosinophils # (Manual) Basophils # (Manual) PT INR D-Dimer ABG pH POC ABG pCO2 POC ABG pO2 ABG pO2 ABG HCO3 ABG O2 Saturation ABG Base Excess ABG Hemoglobin ABG Oxyhemoglobin ABG Potassium ABG Glucose Oxyhemoglobin Carboxyhemoglobin Sodium 149 H Potassium Chloride Carbon Dioxide 35 H BUN 34 H Creatinine 0.2 L D Glucose 177 H POC Glucose 151 H Calcium Ferritin Total Bilirubin Alkaline Phosphatase Lactate Dehydrogenase Total Creatine Kinase CK-MB (CK-2) Rel Index Troponin T C-Reactive Protein Total Protein Albumin Prealbumin LDL Cholesterol Direct HDL Cholesterol Arterial Blood Glucose Arterial Blood Ionized Calcium Urine WBC (Auto) 03/10/20 03/10/20 03/11/20 17:41 23:53 05:02 WBC RBC Hgb Hct MCV MCH RDW Plt Count Lymph % (Auto) [place] % (Auto) Eos % (Auto) Lymph # (Auto) [place] # (Auto) Eos # (Auto) Seg Neutrophils % Seg Neuts % (Manual) Lymphocytes % (Manual) Monocytes % (Manual) Basophils % (Manual) Seg Neutrophils # Seg Neutrophils # Man Lymphocytes # (Manual) Monocytes # (Manual) Eosinophils # (Manual) Basophils # (Manual) PT INR D-Dimer ABG pH POC ABG pCO2 POC ABG pO2 ABG pO2 ABG HCO3 ABG O2 Saturation ABG Base Excess ABG Hemoglobin ABG Oxyhemoglobin ABG Potassium ABG Glucose Oxyhemoglobin Carboxyhemoglobin Sodium Potassium Chloride Carbon Dioxide BUN Creatinine Glucose POC Glucose 168 H 142 H 146 H Calcium Ferritin Total Bilirubin Alkaline Phosphatase Lactate Dehydrogenase Total Creatine Kinase CK-MB (CK-2) Rel Index Troponin T C-Reactive Protein Total Protein Albumin Prealbumin LDL Cholesterol Direct HDL Cholesterol Arterial Blood Glucose Arterial Blood Ionized Calcium Urine WBC (Auto) 03/11/20 03/11/20 03/11/20 11:30 14:01 14:01 WBC 19.7 H RBC 3.04 L Hgb 8.7 L Hct 25.8 L MCV MCH RDW 15.6 H Plt Count Lymph % (Auto) [place] % (Auto) Eos % (Auto) Lymph # (Auto) [place] # (Auto) Eos # (Auto) Seg Neutrophils % Seg Neuts % (Manual) Lymphocytes % (Manual) Monocytes % (Manual) Basophils % (Manual) Seg Neutrophils # Seg Neutrophils # Man Lymphocytes # (Manual) Monocytes # (Manual) Eosinophils # (Manual) Basophils # (Manual) PT INR D-Dimer ABG pH POC ABG pCO2 POC ABG pO2 ABG pO2 ABG HCO3 ABG O2 Saturation ABG Base Excess ABG Hemoglobin ABG Oxyhemoglobin ABG Potassium ABG Glucose Oxyhemoglobin Carboxyhemoglobin Sodium 151 H Potassium Chloride Carbon Dioxide 37 H BUN Creatinine < 0.2 L Glucose 171 H POC Glucose 248 H Calcium Ferritin Total Bilirubin Alkaline Phosphatase Lactate Dehydrogenase Total Creatine Kinase CK-MB (CK-2) Rel Index Troponin T C-Reactive Protein Total Protein Albumin Prealbumin LDL Cholesterol Direct HDL Cholesterol Arterial Blood Glucose Arterial Blood Ionized Calcium Urine WBC (Auto) 03/11/20 03/11/20 03/12/20 17:09 23:52 04:39 WBC 19.9 H RBC 3.16 L Hgb 8.9 L Hct 27.5 L MCV MCH RDW 15.7 H Plt Count Lymph % (Auto) 6.8 L [place] % (Auto) Eos % (Auto) Lymph # (Auto) [place] # (Auto) 1.2 H Eos # (Auto) Seg Neutrophils % 86.0 H Seg Neuts % (Manual) Lymphocytes % (Manual) Monocytes % (Manual) Basophils % (Manual) Seg Neutrophils # 17.1 H Seg Neutrophils # Man Lymphocytes # (Manual) Monocytes # (Manual) Eosinophils # (Manual) Basophils # (Manual) PT INR D-Dimer ABG pH POC ABG pCO2 POC ABG pO2 ABG pO2 ABG HCO3 ABG O2 Saturation ABG Base Excess ABG Hemoglobin ABG Oxyhemoglobin ABG Potassium ABG Glucose Oxyhemoglobin Carboxyhemoglobin Sodium Potassium Chloride Carbon Dioxide BUN Creatinine Glucose POC Glucose 124 H 131 H Calcium Ferritin Total Bilirubin Alkaline Phosphatase Lactate Dehydrogenase Total Creatine Kinase CK-MB (CK-2) Rel Index Troponin T C-Reactive Protein Total Protein Albumin Prealbumin LDL Cholesterol Direct HDL Cholesterol Arterial Blood Glucose Arterial Blood Ionized Calcium Urine WBC (Auto) 03/12/20 03/12/20 03/12/20 04:39 05:28 11:34 WBC RBC Hgb Hct MCV MCH RDW Plt Count Lymph % (Auto) [place] % (Auto) Eos % (Auto) Lymph # (Auto) [place] # (Auto) Eos # (Auto) Seg Neutrophils % Seg Neuts % (Manual) Lymphocytes % (Manual) Monocytes % (Manual) Basophils % (Manual) Seg Neutrophils # Seg Neutrophils # Man Lymphocytes # (Manual) Monocytes # (Manual) Eosinophils # (Manual) Basophils # (Manual) PT INR D-Dimer ABG pH POC ABG pCO2 POC ABG pO2 ABG pO2 ABG HCO3 ABG O2 Saturation ABG Base Excess ABG Hemoglobin ABG Oxyhemoglobin ABG Potassium ABG Glucose Oxyhemoglobin Carboxyhemoglobin Sodium 147 H Potassium Chloride Carbon Dioxide 40 H BUN Creatinine < 0.2 L Glucose 175 H POC Glucose 167 H 144 H Calcium Ferritin Total Bilirubin Alkaline Phosphatase Lactate Dehydrogenase Total Creatine Kinase CK-MB (CK-2) Rel Index Troponin T C-Reactive Protein Total Protein Albumin Prealbumin LDL Cholesterol Direct HDL Cholesterol Arterial Blood Glucose Arterial Blood Ionized Calcium Urine WBC (Auto) 03/12/20 03/12/20 03/13/20 17:32 23:57 05:57 WBC RBC Hgb Hct MCV MCH RDW Plt Count Lymph % (Auto) [place] % (Auto) Eos % (Auto) Lymph # (Auto) [place] # (Auto) Eos # (Auto) Seg Neutrophils % Seg Neuts % (Manual) Lymphocytes % (Manual) Monocytes % (Manual) Basophils % (Manual) Seg Neutrophils # Seg Neutrophils # Man Lymphocytes # (Manual) Monocytes # (Manual) Eosinophils # (Manual) Basophils # (Manual) PT INR D-Dimer ABG pH POC ABG pCO2 POC ABG pO2 ABG pO2 ABG HCO3 ABG O2 Saturation ABG Base Excess ABG Hemoglobin ABG Oxyhemoglobin ABG Potassium ABG Glucose Oxyhemoglobin Carboxyhemoglobin Sodium Potassium Chloride Carbon Dioxide BUN Creatinine Glucose POC Glucose 141 H 137 H 161 H Calcium Ferritin Total Bilirubin Alkaline Phosphatase Lactate Dehydrogenase Total Creatine Kinase CK-MB (CK-2) Rel Index Troponin T C-Reactive Protein Total Protein Albumin Prealbumin LDL Cholesterol Direct HDL Cholesterol Arterial Blood Glucose Arterial Blood Ionized Calcium Urine WBC (Auto) 03/13/20 03/13/20 03/13/20 12:28 14:14 18:39 WBC RBC Hgb Hct MCV MCH RDW Plt Count Lymph % (Auto) [place] % (Auto) Eos % (Auto) Lymph # (Auto) [place] # (Auto) Eos # (Auto) Seg Neutrophils % Seg Neuts % (Manual) Lymphocytes % (Manual) Monocytes % (Manual) Basophils % (Manual) Seg Neutrophils # Seg Neutrophils # Man Lymphocytes # (Manual) Monocytes # (Manual) Eosinophils # (Manual) Basophils # (Manual) PT INR D-Dimer ABG pH POC ABG pCO2 POC ABG pO2 ABG pO2 ABG HCO3 ABG O2 Saturation ABG Base Excess ABG Hemoglobin ABG Oxyhemoglobin ABG Potassium ABG Glucose Oxyhemoglobin Carboxyhemoglobin Sodium Potassium Chloride Carbon Dioxide 39 H BUN Creatinine < 0.2 L Glucose 129 H POC Glucose 130 H 125 H Calcium Ferritin Total Bilirubin Alkaline Phosphatase Lactate Dehydrogenase Total Creatine Kinase CK-MB (CK-2) Rel Index Troponin T C-Reactive Protein Total Protein Albumin Prealbumin LDL Cholesterol Direct HDL Cholesterol Arterial Blood Glucose Arterial Blood Ionized Calcium Urine WBC (Auto) 03/13/20 03/14/20 03/14/20 23:33 05:24 08:07 WBC 16.8 H RBC 2.81 L Hgb 7.9 L Hct 23.9 L MCV MCH RDW 15.9 H Plt Count Lymph % (Auto) [place] % (Auto) Eos % (Auto) Lymph # (Auto) [place] # (Auto) Eos # (Auto) Seg Neutrophils % Seg Neuts % (Manual) 84.0 H Lymphocytes % (Manual) 10.0 L Monocytes % (Manual) Basophils % (Manual) Seg Neutrophils # Seg Neutrophils # Man 14.1 H Lymphocytes # (Manual) Monocytes # (Manual) Eosinophils # (Manual) Basophils # (Manual) PT INR D-Dimer ABG pH POC ABG pCO2 POC ABG pO2 ABG pO2 ABG HCO3 ABG O2 Saturation ABG Base Excess ABG Hemoglobin ABG Oxyhemoglobin ABG Potassium ABG Glucose Oxyhemoglobin Carboxyhemoglobin Sodium Potassium Chloride Carbon Dioxide BUN Creatinine Glucose POC Glucose 146 H 125 H Calcium Ferritin Total Bilirubin Alkaline Phosphatase Lactate Dehydrogenase Total Creatine Kinase CK-MB (CK-2) Rel Index Troponin T C-Reactive Protein Total Protein Albumin Prealbumin LDL Cholesterol Direct HDL Cholesterol Arterial Blood Glucose Arterial Blood Ionized Calcium Urine WBC (Auto) 03/14/20 03/14/20 03/14/20 08:07 12:21 18:26 WBC RBC Hgb Hct MCV MCH RDW Plt Count Lymph % (Auto) [place] % (Auto) Eos % (Auto) Lymph # (Auto) [place] # (Auto) Eos # (Auto) Seg Neutrophils % Seg Neuts % (Manual) Lymphocytes % (Manual) Monocytes % (Manual) Basophils % (Manual) Seg Neutrophils # Seg Neutrophils # Man Lymphocytes # (Manual) Monocytes # (Manual) Eosinophils # (Manual) Basophils # (Manual) PT INR D-Dimer ABG pH POC ABG pCO2 POC ABG pO2 ABG pO2 ABG HCO3 ABG O2 Saturation ABG Base Excess ABG Hemoglobin ABG Oxyhemoglobin ABG Potassium ABG Glucose Oxyhemoglobin Carboxyhemoglobin Sodium Potassium Chloride 97.0 L Carbon Dioxide 37 H BUN Creatinine < 0.2 L Glucose 129 H POC Glucose 109 H 142 H Calcium 8.3 L Ferritin Total Bilirubin Alkaline Phosphatase Lactate Dehydrogenase Total Creatine Kinase CK-MB (CK-2) Rel Index Troponin T C-Reactive Protein Total Protein Albumin Prealbumin LDL Cholesterol Direct HDL Cholesterol Arterial Blood Glucose Arterial Blood Ionized Calcium Urine WBC (Auto) 03/14/20 03/15/20 03/15/20 23:57 05:46 08:06 WBC 19.7 H RBC 3.29 L Hgb 9.1 L Hct 28.0 L MCV MCH RDW 15.9 H Plt Count Lymph % (Auto) [place] % (Auto) Eos % (Auto) Lymph # (Auto) [place] # (Auto) Eos # (Auto) Seg Neutrophils % Seg Neuts % (Manual) Lymphocytes % (Manual) Monocytes % (Manual) Basophils % (Manual) Seg Neutrophils # Seg Neutrophils # Man Lymphocytes # (Manual) Monocytes # (Manual) Eosinophils # (Manual) Basophils # (Manual) PT INR D-Dimer ABG pH POC ABG pCO2 POC ABG pO2 ABG pO2 ABG HCO3 ABG O2 Saturation ABG Base Excess ABG Hemoglobin ABG Oxyhemoglobin ABG Potassium ABG Glucose Oxyhemoglobin Carboxyhemoglobin Sodium Potassium Chloride Carbon Dioxide BUN Creatinine Glucose POC Glucose 157 H 118 H Calcium Ferritin Total Bilirubin Alkaline Phosphatase Lactate Dehydrogenase Total Creatine Kinase CK-MB (CK-2) Rel Index Troponin T C-Reactive Protein Total Protein Albumin Prealbumin LDL Cholesterol Direct HDL Cholesterol Arterial Blood Glucose Arterial Blood Ionized Calcium Urine WBC (Auto) 03/15/20 03/15/20 03/15/20 08:06 12:44 18:09 WBC RBC Hgb Hct MCV MCH RDW Plt Count Lymph % (Auto) [place] % (Auto) Eos % (Auto) Lymph # (Auto) [place] # (Auto) Eos # (Auto) Seg Neutrophils % Seg Neuts % (Manual) Lymphocytes % (Manual) Monocytes % (Manual) Basophils % (Manual) Seg Neutrophils # Seg Neutrophils # Man Lymphocytes # (Manual) Monocytes # (Manual) Eosinophils # (Manual) Basophils # (Manual) PT INR D-Dimer ABG pH POC ABG pCO2 POC ABG pO2 ABG pO2 ABG HCO3 ABG O2 Saturation ABG Base Excess ABG Hemoglobin ABG Oxyhemoglobin ABG Potassium ABG Glucose Oxyhemoglobin Carboxyhemoglobin Sodium 136 L Potassium Chloride 93.6 L Carbon Dioxide 37 H BUN Creatinine < 0.2 L Glucose 132 H POC Glucose 151 H 164 H Calcium Ferritin Total Bilirubin Alkaline Phosphatase Lactate Dehydrogenase Total Creatine Kinase CK-MB (CK-2) Rel Index Troponin T C-Reactive Protein Total Protein Albumin Prealbumin LDL Cholesterol Direct HDL Cholesterol Arterial Blood Glucose Arterial Blood Ionized Calcium Urine WBC (Auto) 03/15/20 03/16/20 03/16/20 23:26 05:39 11:58 WBC RBC Hgb Hct MCV MCH RDW Plt Count Lymph % (Auto) [place] % (Auto) Eos % (Auto) Lymph # (Auto) [place] # (Auto) Eos # (Auto) Seg Neutrophils % Seg Neuts % (Manual) Lymphocytes % (Manual) Monocytes % (Manual) Basophils % (Manual) Seg Neutrophils # Seg Neutrophils # Man Lymphocytes # (Manual) Monocytes # (Manual) Eosinophils # (Manual) Basophils # (Manual) PT INR D-Dimer ABG pH POC ABG pCO2 POC ABG pO2 ABG pO2 ABG HCO3 ABG O2 Saturation ABG Base Excess ABG Hemoglobin ABG Oxyhemoglobin ABG Potassium ABG Glucose Oxyhemoglobin Carboxyhemoglobin Sodium Potassium Chloride Carbon Dioxide BUN Creatinine Glucose POC Glucose 136 H 116 H 109 H Calcium Ferritin Total Bilirubin Alkaline Phosphatase Lactate Dehydrogenase Total Creatine Kinase CK-MB (CK-2) Rel Index Troponin T C-Reactive Protein Total Protein Albumin Prealbumin LDL Cholesterol Direct HDL Cholesterol Arterial Blood Glucose Arterial Blood Ionized Calcium Urine WBC (Auto) 03/16/20 03/17/20 03/17/20 23:56 04:40 04:40 WBC 18.0 H RBC 3.33 L Hgb 9.5 L Hct 28.8 L MCV MCH RDW 16.4 H Plt Count 499 H Lymph % (Auto) [place] % (Auto) Eos % (Auto) Lymph # (Auto) [place] # (Auto) Eos # (Auto) Seg Neutrophils % Seg Neuts % (Manual) 82.0 H Lymphocytes % (Manual) 8.0 L Monocytes % (Manual) Basophils % (Manual) Seg Neutrophils # Seg Neutrophils # Man 14.8 H Lymphocytes # (Manual) Monocytes # (Manual) 1.3 H Eosinophils # (Manual) Basophils # (Manual) 0.2 H PT INR D-Dimer ABG pH POC ABG pCO2 POC ABG pO2 ABG pO2 ABG HCO3 ABG O2 Saturation ABG Base Excess ABG Hemoglobin ABG Oxyhemoglobin ABG Potassium ABG Glucose Oxyhemoglobin Carboxyhemoglobin Sodium Potassium Chloride 97.7 L Carbon Dioxide 32 H BUN Creatinine < 0.2 L Glucose 114 H POC Glucose 131 H Calcium Ferritin Total Bilirubin Alkaline Phosphatase Lactate Dehydrogenase Total Creatine Kinase CK-MB (CK-2) Rel Index Troponin T C-Reactive Protein Total Protein Albumin Prealbumin LDL Cholesterol Direct HDL Cholesterol Arterial Blood Glucose Arterial Blood Ionized Calcium Urine WBC (Auto) 03/18/20 03/18/20 03/18/20 00:21 05:21 11:55 WBC RBC Hgb Hct MCV MCH RDW Plt Count Lymph % (Auto) [place] % (Auto) Eos % (Auto) Lymph # (Auto) [place] # (Auto) Eos # (Auto) Seg Neutrophils % Seg Neuts % (Manual) Lymphocytes % (Manual) Monocytes % (Manual) Basophils % (Manual) Seg Neutrophils # Seg Neutrophils # Man Lymphocytes # (Manual) Monocytes # (Manual) Eosinophils # (Manual) Basophils # (Manual) PT INR D-Dimer ABG pH POC ABG pCO2 POC ABG pO2 ABG pO2 ABG HCO3 ABG O2 Saturation ABG Base Excess ABG Hemoglobin ABG Oxyhemoglobin ABG Potassium ABG Glucose Oxyhemoglobin Carboxyhemoglobin Sodium Potassium Chloride Carbon Dioxide BUN Creatinine Glucose POC Glucose 124 H 138 H 119 H Calcium Ferritin Total Bilirubin Alkaline Phosphatase Lactate Dehydrogenase Total Creatine Kinase CK-MB (CK-2) Rel Index Troponin T C-Reactive Protein Total Protein Albumin Prealbumin LDL Cholesterol Direct HDL Cholesterol Arterial Blood Glucose Arterial Blood Ionized Calcium Urine WBC (Auto) 03/18/20 03/18/20 03/19/20 17:03 23:58 05:24 WBC RBC Hgb Hct MCV MCH RDW Plt Count Lymph % (Auto) [place] % (Auto) Eos % (Auto) Lymph # (Auto) [place] # (Auto) Eos # (Auto) Seg Neutrophils % Seg Neuts % (Manual) Lymphocytes % (Manual) Monocytes % (Manual) Basophils % (Manual) Seg Neutrophils # Seg Neutrophils # Man Lymphocytes # (Manual) Monocytes # (Manual) Eosinophils # (Manual) Basophils # (Manual) PT INR D-Dimer ABG pH POC ABG pCO2 POC ABG pO2 ABG pO2 ABG HCO3 ABG O2 Saturation ABG Base Excess ABG Hemoglobin ABG Oxyhemoglobin ABG Potassium ABG Glucose Oxyhemoglobin Carboxyhemoglobin Sodium Potassium Chloride Carbon Dioxide BUN Creatinine Glucose POC Glucose 128 H 128 H 115 H Calcium Ferritin Total Bilirubin Alkaline Phosphatase Lactate Dehydrogenase Total Creatine Kinase CK-MB (CK-2) Rel Index Troponin T C-Reactive Protein Total Protein Albumin Prealbumin LDL Cholesterol Direct HDL Cholesterol Arterial Blood Glucose Arterial Blood Ionized Calcium Urine WBC (Auto) 03/19/20 03/19/20 03/19/20 08:05 08:05 11:56 WBC 16.8 H RBC 3.36 L Hgb 9.4 L Hct 28.8 L MCV MCH RDW 17.4 H Plt Count 567 H Lymph % (Auto) 7.8 L [place] % (Auto) Eos % (Auto) Lymph # (Auto) [place] # (Auto) 1.2 H Eos # (Auto) Seg Neutrophils % 83.5 H Seg Neuts % (Manual) Lymphocytes % (Manual) Monocytes % (Manual) Basophils % (Manual) Seg Neutrophils # 14.1 H Seg Neutrophils # Man Lymphocytes # (Manual) Monocytes # (Manual) Eosinophils # (Manual) Basophils # (Manual) PT INR D-Dimer ABG pH POC ABG pCO2 POC ABG pO2 ABG pO2 ABG HCO3 ABG O2 Saturation ABG Base Excess ABG Hemoglobin ABG Oxyhemoglobin ABG Potassium ABG Glucose Oxyhemoglobin Carboxyhemoglobin Sodium Potassium Chloride Carbon Dioxide 36 H BUN Creatinine < 0.2 L Glucose 135 H POC Glucose 128 H Calcium Ferritin Total Bilirubin Alkaline Phosphatase Lactate Dehydrogenase Total Creatine Kinase CK-MB (CK-2) Rel Index Troponin T C-Reactive Protein Total Protein Albumin Prealbumin LDL Cholesterol Direct HDL Cholesterol Arterial Blood Glucose Arterial Blood Ionized Calcium Urine WBC (Auto) 03/19/20 03/20/20 03/20/20 23:59 05:12 16:52 WBC RBC Hgb Hct MCV MCH RDW Plt Count Lymph % (Auto) [place] % (Auto) Eos % (Auto) Lymph # (Auto) [place] # (Auto) Eos # (Auto) Seg Neutrophils % Seg Neuts % (Manual) Lymphocytes % (Manual) Monocytes % (Manual) Basophils % (Manual) Seg Neutrophils # Seg Neutrophils # Man Lymphocytes # (Manual) Monocytes # (Manual) Eosinophils # (Manual) Basophils # (Manual) PT INR D-Dimer ABG pH POC ABG pCO2 POC ABG pO2 ABG pO2 ABG HCO3 ABG O2 Saturation ABG Base Excess ABG Hemoglobin ABG Oxyhemoglobin ABG Potassium ABG Glucose Oxyhemoglobin Carboxyhemoglobin Sodium Potassium Chloride Carbon Dioxide BUN Creatinine Glucose POC Glucose 120 H 131 H 124 H Calcium Ferritin Total Bilirubin Alkaline Phosphatase Lactate Dehydrogenase Total Creatine Kinase CK-MB (CK-2) Rel Index Troponin T C-Reactive Protein Total Protein Albumin Prealbumin LDL Cholesterol Direct HDL Cholesterol Arterial Blood Glucose Arterial Blood Ionized Calcium Urine WBC (Auto) 03/20/20 03/21/20 03/21/20 23:35 04:50 07:35 WBC 15.2 H RBC 3.39 L Hgb 9.4 L Hct 29.4 L MCV MCH RDW 17.6 H Plt Count 518 H Lymph % (Auto) [place] % (Auto) Eos % (Auto) Lymph # (Auto) [place] # (Auto) Eos # (Auto) Seg Neutrophils % Seg Neuts % (Manual) 83.0 H Lymphocytes % (Manual) 10.0 L Monocytes % (Manual) Basophils % (Manual) 2.0 H Seg Neutrophils # Seg Neutrophils # Man 12.6 H Lymphocytes # (Manual) Monocytes # (Manual) Eosinophils # (Manual) Basophils # (Manual) 0.3 H PT INR D-Dimer ABG pH POC ABG pCO2 POC ABG pO2 ABG pO2 ABG HCO3 ABG O2 Saturation ABG Base Excess ABG Hemoglobin ABG Oxyhemoglobin ABG Potassium ABG Glucose Oxyhemoglobin Carboxyhemoglobin Sodium Potassium Chloride Carbon Dioxide BUN Creatinine Glucose POC Glucose 125 H 127 H Calcium Ferritin Total Bilirubin Alkaline Phosphatase Lactate Dehydrogenase Total Creatine Kinase CK-MB (CK-2) Rel Index Troponin T C-Reactive Protein Total Protein Albumin Prealbumin LDL Cholesterol Direct HDL Cholesterol Arterial Blood Glucose Arterial Blood Ionized Calcium Urine WBC (Auto) 03/21/20 03/21/20 03/21/20 07:35 11:45 17:22 WBC RBC Hgb Hct MCV MCH RDW Plt Count Lymph % (Auto) [place] % (Auto) Eos % (Auto) Lymph # (Auto) [place] # (Auto) Eos # (Auto) Seg Neutrophils % Seg Neuts % (Manual) Lymphocytes % (Manual) Monocytes % (Manual) Basophils % (Manual) Seg Neutrophils # Seg Neutrophils # Man Lymphocytes # (Manual) Monocytes # (Manual) Eosinophils # (Manual) Basophils # (Manual) PT INR D-Dimer ABG pH POC ABG pCO2 POC ABG pO2 ABG pO2 ABG HCO3 ABG O2 Saturation ABG Base Excess ABG Hemoglobin ABG Oxyhemoglobin ABG Potassium ABG Glucose Oxyhemoglobin Carboxyhemoglobin Sodium 136 L Potassium Chloride 97.7 L Carbon Dioxide 32 H BUN Creatinine < 0.2 L Glucose 103 H POC Glucose 126 H 120 H Calcium Ferritin Total Bilirubin Alkaline Phosphatase Lactate Dehydrogenase Total Creatine Kinase CK-MB (CK-2) Rel Index Troponin T C-Reactive Protein Total Protein Albumin Prealbumin LDL Cholesterol Direct HDL Cholesterol Arterial Blood Glucose Arterial Blood Ionized Calcium Urine WBC (Auto) 03/22/20 03/22/20 03/22/20 05:09 06:34 06:34 WBC 17.5 H RBC 3.52 L Hgb 10.0 L Hct 30.7 L MCV MCH RDW 17.5 H Plt Count 499 H Lymph % (Auto) [place] % (Auto) Eos % (Auto) Lymph # (Auto) [place] # (Auto) Eos # (Auto) Seg Neutrophils % Seg Neuts % (Manual) 80.0 H Lymphocytes % (Manual) 10.0 L Monocytes % (Manual) Basophils % (Manual) Seg Neutrophils # Seg Neutrophils # Man 14.0 H Lymphocytes # (Manual) Monocytes # (Manual) Eosinophils # (Manual) Basophils # (Manual) PT INR D-Dimer ABG pH POC ABG pCO2 POC ABG pO2 ABG pO2 ABG HCO3 ABG O2 Saturation ABG Base Excess ABG Hemoglobin ABG Oxyhemoglobin ABG Potassium ABG Glucose Oxyhemoglobin Carboxyhemoglobin Sodium Potassium Chloride 96.6 L Carbon Dioxide 38 H BUN Creatinine < 0.2 L Glucose 139 H POC Glucose 125 H Calcium Ferritin Total Bilirubin Alkaline Phosphatase Lactate Dehydrogenase Total Creatine Kinase CK-MB (CK-2) Rel Index Troponin T C-Reactive Protein Total Protein Albumin Prealbumin LDL Cholesterol Direct HDL Cholesterol Arterial Blood Glucose Arterial Blood Ionized Calcium Urine WBC (Auto) 03/22/20 03/22/20 03/22/20 11:45 18:00 23:32 WBC RBC Hgb Hct MCV MCH RDW Plt Count Lymph % (Auto) [place] % (Auto) Eos % (Auto) Lymph # (Auto) [place] # (Auto) Eos # (Auto) Seg Neutrophils % Seg Neuts % (Manual) Lymphocytes % (Manual) Monocytes % (Manual) Basophils % (Manual) Seg Neutrophils # Seg Neutrophils # Man Lymphocytes # (Manual) Monocytes # (Manual) Eosinophils # (Manual) Basophils # (Manual) PT INR D-Dimer ABG pH POC ABG pCO2 POC ABG pO2 ABG pO2 ABG HCO3 ABG O2 Saturation ABG Base Excess ABG Hemoglobin ABG Oxyhemoglobin ABG Potassium ABG Glucose Oxyhemoglobin Carboxyhemoglobin Sodium Potassium Chloride Carbon Dioxide BUN Creatinine Glucose POC Glucose 135 H 133 H Calcium Ferritin Total Bilirubin Alkaline Phosphatase Lactate Dehydrogenase Total Creatine Kinase CK-MB (CK-2) Rel Index Troponin T 0.113 H* C-Reactive Protein Total Protein Albumin Prealbumin LDL Cholesterol Direct HDL Cholesterol Arterial Blood Glucose Arterial Blood Ionized Calcium Urine WBC (Auto) 03/23/20 03/23/20 03/23/20 01:47 06:21 07:57 WBC RBC Hgb Hct MCV MCH RDW Plt Count Lymph % (Auto) [place] % (Auto) Eos % (Auto) Lymph # (Auto) [place] # (Auto) Eos # (Auto) Seg Neutrophils % Seg Neuts % (Manual) Lymphocytes % (Manual) Monocytes % (Manual) Basophils % (Manual) Seg Neutrophils # Seg Neutrophils # Man Lymphocytes # (Manual) Monocytes # (Manual) Eosinophils # (Manual) Basophils # (Manual) PT INR D-Dimer ABG pH POC ABG pCO2 POC ABG pO2 ABG pO2 ABG HCO3 ABG O2 Saturation ABG Base Excess ABG Hemoglobin ABG Oxyhemoglobin ABG Potassium ABG Glucose Oxyhemoglobin Carboxyhemoglobin Sodium Potassium Chloride Carbon Dioxide BUN Creatinine Glucose POC Glucose 130 H Calcium Ferritin Total Bilirubin Alkaline Phosphatase Lactate Dehydrogenase Total Creatine Kinase CK-MB (CK-2) Rel Index Troponin T 0.143 H* D 0.105 H* D C-Reactive Protein Total Protein Albumin Prealbumin LDL Cholesterol Direct HDL Cholesterol Arterial Blood Glucose Arterial Blood Ionized Calcium Urine WBC (Auto) 03/23/20 03/24/20 03/24/20 12:02 05:33 07:15 WBC 18.0 H RBC Hgb 11.0 L Hct 34.0 L MCV MCH RDW 17.4 H Plt Count 520 H Lymph % (Auto) [place] % (Auto) Eos % (Auto) Lymph # (Auto) [place] # (Auto) Eos # (Auto) Seg Neutrophils % Seg Neuts % (Manual) 88.0 H Lymphocytes % (Manual) 7.0 L Monocytes % (Manual) Basophils % (Manual) Seg Neutrophils # Seg Neutrophils # Man 15.8 H Lymphocytes # (Manual) Monocytes # (Manual) Eosinophils # (Manual) Basophils # (Manual) PT INR D-Dimer ABG pH POC ABG pCO2 POC ABG pO2 ABG pO2 ABG HCO3 ABG O2 Saturation ABG Base Excess ABG Hemoglobin ABG Oxyhemoglobin ABG Potassium ABG Glucose Oxyhemoglobin Carboxyhemoglobin Sodium Potassium Chloride Carbon Dioxide BUN Creatinine Glucose POC Glucose 137 H 112 H Calcium Ferritin Total Bilirubin Alkaline Phosphatase Lactate Dehydrogenase Total Creatine Kinase CK-MB (CK-2) Rel Index Troponin T C-Reactive Protein Total Protein Albumin Prealbumin LDL Cholesterol Direct HDL Cholesterol Arterial Blood Glucose Arterial Blood Ionized Calcium Urine WBC (Auto) 03/24/20 03/24/20 03/24/20 07:15 11:22 23:30 WBC RBC Hgb Hct MCV MCH RDW Plt Count Lymph % (Auto) [place] % (Auto) Eos % (Auto) Lymph # (Auto) [place] # (Auto) Eos # (Auto) Seg Neutrophils % Seg Neuts % (Manual) Lymphocytes % (Manual) Monocytes % (Manual) Basophils % (Manual) Seg Neutrophils # Seg Neutrophils # Man Lymphocytes # (Manual) Monocytes # (Manual) Eosinophils # (Manual) Basophils # (Manual) PT INR D-Dimer ABG pH POC ABG pCO2 POC ABG pO2 ABG pO2 ABG HCO3 ABG O2 Saturation ABG Base Excess ABG Hemoglobin ABG Oxyhemoglobin ABG Potassium ABG Glucose Oxyhemoglobin Carboxyhemoglobin Sodium Potassium Chloride 96.6 L Carbon Dioxide 38 H BUN Creatinine < 0.2 L Glucose 141 H POC Glucose 130 H 120 H Calcium Ferritin Total Bilirubin Alkaline Phosphatase Lactate Dehydrogenase Total Creatine Kinase CK-MB (CK-2) Rel Index Troponin T C-Reactive Protein Total Protein Albumin Prealbumin LDL Cholesterol Direct HDL Cholesterol Arterial Blood Glucose Arterial Blood Ionized Calcium Urine WBC (Auto) 03/25/20 03/25/20 03/25/20 05:48 17:53 23:18 WBC RBC Hgb Hct MCV MCH RDW Plt Count Lymph % (Auto) [place] % (Auto) Eos % (Auto) Lymph # (Auto) [place] # (Auto) Eos # (Auto) Seg Neutrophils % Seg Neuts % (Manual) Lymphocytes % (Manual) Monocytes % (Manual) Basophils % (Manual) Seg Neutrophils # Seg Neutrophils # Man Lymphocytes # (Manual) Monocytes # (Manual) Eosinophils # (Manual) Basophils # (Manual) PT INR D-Dimer ABG pH POC ABG pCO2 POC ABG pO2 ABG pO2 ABG HCO3 ABG O2 Saturation ABG Base Excess ABG Hemoglobin ABG Oxyhemoglobin ABG Potassium ABG Glucose Oxyhemoglobin Carboxyhemoglobin Sodium Potassium Chloride Carbon Dioxide BUN Creatinine Glucose POC Glucose 124 H 109 H 131 H Calcium Ferritin Total Bilirubin Alkaline Phosphatase Lactate Dehydrogenase Total Creatine Kinase CK-MB (CK-2) Rel Index Troponin T C-Reactive Protein Total Protein Albumin Prealbumin LDL Cholesterol Direct HDL Cholesterol Arterial Blood Glucose Arterial Blood Ionized Calcium Urine WBC (Auto) 03/26/20 03/26/20 03/26/20 05:21 08:49 08:49 WBC 19.7 H RBC Hgb 10.7 L Hct 33.5 L MCV MCH 27 L RDW 17.1 H Plt Count 480 H Lymph % (Auto) 5.7 L [place] % (Auto) Eos % (Auto) Lymph # (Auto) 1.1 L [place] # (Auto) 1.2 H Eos # (Auto) Seg Neutrophils % 87.7 H Seg Neuts % (Manual) Lymphocytes % (Manual) Monocytes % (Manual) Basophils % (Manual) Seg Neutrophils # 17.2 H Seg Neutrophils # Man Lymphocytes # (Manual) Monocytes # (Manual) Eosinophils # (Manual) Basophils # (Manual) PT INR D-Dimer ABG pH POC ABG pCO2 POC ABG pO2 ABG pO2 ABG HCO3 ABG O2 Saturation ABG Base Excess ABG Hemoglobin ABG Oxyhemoglobin ABG Potassium ABG Glucose Oxyhemoglobin Carboxyhemoglobin Sodium Potassium Chloride 97.2 L Carbon Dioxide 36 H BUN Creatinine < 0.2 L Glucose 127 H POC Glucose 116 H Calcium Ferritin Total Bilirubin Alkaline Phosphatase Lactate Dehydrogenase Total Creatine Kinase CK-MB (CK-2) Rel Index Troponin T C-Reactive Protein Total Protein Albumin Prealbumin LDL Cholesterol Direct HDL Cholesterol Arterial Blood Glucose Arterial Blood Ionized Calcium Urine WBC (Auto) 03/26/20 03/26/20 03/26/20 11:38 18:44 23:06 WBC RBC Hgb Hct MCV MCH RDW Plt Count Lymph % (Auto) [place] % (Auto) Eos % (Auto) Lymph # (Auto) [place] # (Auto) Eos # (Auto) Seg Neutrophils % Seg Neuts % (Manual) Lymphocytes % (Manual) Monocytes % (Manual) Basophils % (Manual) Seg Neutrophils # Seg Neutrophils # Man Lymphocytes # (Manual) Monocytes # (Manual) Eosinophils # (Manual) Basophils # (Manual) PT INR D-Dimer ABG pH POC ABG pCO2 POC ABG pO2 ABG pO2 ABG HCO3 ABG O2 Saturation ABG Base Excess ABG Hemoglobin ABG Oxyhemoglobin ABG Potassium ABG Glucose Oxyhemoglobin Carboxyhemoglobin Sodium Potassium Chloride Carbon Dioxide BUN Creatinine Glucose POC Glucose 120 H 111 H 134 H Calcium Ferritin Total Bilirubin Alkaline Phosphatase Lactate Dehydrogenase Total Creatine Kinase CK-MB (CK-2) Rel Index Troponin T C-Reactive Protein Total Protein Albumin Prealbumin LDL Cholesterol Direct HDL Cholesterol Arterial Blood Glucose Arterial Blood Ionized Calcium Urine WBC (Auto) 03/27/20 03/27/20 03/27/20 05:41 05:59 05:59 WBC 18.6 H RBC Hgb 10.1 L Hct 31.4 L MCV MCH RDW 17.2 H Plt Count Lymph % (Auto) 8.0 L [place] % (Auto) Eos % (Auto) Lymph # (Auto) [place] # (Auto) 1.2 H Eos # (Auto) Seg Neutrophils % 84.7 H Seg Neuts % (Manual) Lymphocytes % (Manual) Monocytes % (Manual) Basophils % (Manual) Seg Neutrophils # 15.8 H Seg Neutrophils # Man Lymphocytes # (Manual) Monocytes # (Manual) Eosinophils # (Manual) Basophils # (Manual) PT INR D-Dimer ABG pH POC ABG pCO2 POC ABG pO2 ABG pO2 ABG HCO3 ABG O2 Saturation ABG Base Excess ABG Hemoglobin ABG Oxyhemoglobin ABG Potassium ABG Glucose Oxyhemoglobin Carboxyhemoglobin Sodium Potassium Chloride Carbon Dioxide 34 H BUN Creatinine < 0.2 L Glucose 127 H POC Glucose 129 H Calcium Ferritin Total Bilirubin Alkaline Phosphatase Lactate Dehydrogenase Total Creatine Kinase CK-MB (CK-2) Rel Index Troponin T C-Reactive Protein Total Protein Albumin Prealbumin LDL Cholesterol Direct HDL Cholesterol Arterial Blood Glucose Arterial Blood Ionized Calcium Urine WBC (Auto) 03/27/20 03/27/20 03/28/20 17:28 23:22 05:23 WBC RBC Hgb Hct MCV MCH RDW Plt Count Lymph % (Auto) [place] % (Auto) Eos % (Auto) Lymph # (Auto) [place] # (Auto) Eos # (Auto) Seg Neutrophils % Seg Neuts % (Manual) Lymphocytes % (Manual) Monocytes % (Manual) Basophils % (Manual) Seg Neutrophils # Seg Neutrophils # Man Lymphocytes # (Manual) Monocytes # (Manual) Eosinophils # (Manual) Basophils # (Manual) PT INR D-Dimer ABG pH POC ABG pCO2 POC ABG pO2 ABG pO2 ABG HCO3 ABG O2 Saturation ABG Base Excess ABG Hemoglobin ABG Oxyhemoglobin ABG Potassium ABG Glucose Oxyhemoglobin Carboxyhemoglobin Sodium Potassium Chloride Carbon Dioxide BUN Creatinine Glucose POC Glucose 108 H 119 H 129 H Calcium Ferritin Total Bilirubin Alkaline Phosphatase Lactate Dehydrogenase Total Creatine Kinase CK-MB (CK-2) Rel Index Troponin T C-Reactive Protein Total Protein Albumin Prealbumin LDL Cholesterol Direct HDL Cholesterol Arterial Blood Glucose Arterial Blood Ionized Calcium Urine WBC (Auto) 03/28/20 03/28/20 03/28/20 10:28 10:28 11:36 WBC 23.6 H RBC 3.62 L Hgb 10.0 L Hct 30.8 L MCV MCH RDW 16.4 H Plt Count Lymph % (Auto) [place] % (Auto) Eos % (Auto) Lymph # (Auto) [place] # (Auto) Eos # (Auto) Seg Neutrophils % Seg Neuts % (Manual) 89.0 H Lymphocytes % (Manual) 5.0 L Monocytes % (Manual) Basophils % (Manual) Seg Neutrophils # Seg Neutrophils # Man 21.0 H Lymphocytes # (Manual) Monocytes # (Manual) 1.2 H Eosinophils # (Manual) Basophils # (Manual) 0.2 H PT INR D-Dimer ABG pH POC ABG pCO2 POC ABG pO2 ABG pO2 ABG HCO3 ABG O2 Saturation ABG Base Excess ABG Hemoglobin ABG Oxyhemoglobin ABG Potassium ABG Glucose Oxyhemoglobin Carboxyhemoglobin Sodium 134 L Potassium Chloride 94.2 L Carbon Dioxide 35 H BUN Creatinine < 0.2 L Glucose 134 H POC Glucose Calcium Ferritin Total Bilirubin Alkaline Phosphatase Lactate Dehydrogenase Total Creatine Kinase CK-MB (CK-2) Rel Index Troponin T C-Reactive Protein Total Protein Albumin Prealbumin LDL Cholesterol Direct HDL Cholesterol Arterial Blood Glucose Arterial Blood Ionized Calcium Urine WBC (Auto) 39.0 H 03/28/20 03/28/20 03/28/20 11:51 17:08 17:17 WBC RBC Hgb Hct MCV MCH RDW Plt Count Lymph % (Auto) [place] % (Auto) Eos % (Auto) Lymph # (Auto) [place] # (Auto) Eos # (Auto) Seg Neutrophils % Seg Neuts % (Manual) Lymphocytes % (Manual) Monocytes % (Manual) Basophils % (Manual) Seg Neutrophils # Seg Neutrophils # Man Lymphocytes # (Manual) Monocytes # (Manual) Eosinophils # (Manual) Basophils # (Manual) PT INR D-Dimer ABG pH POC ABG pCO2 POC ABG pO2 ABG pO2 ABG HCO3 ABG O2 Saturation ABG Base Excess ABG Hemoglobin ABG Oxyhemoglobin ABG Potassium ABG Glucose Oxyhemoglobin Carboxyhemoglobin Sodium Potassium Chloride Carbon Dioxide BUN Creatinine Glucose POC Glucose 123 H 112 H Calcium Ferritin Total Bilirubin Alkaline Phosphatase Lactate Dehydrogenase Total Creatine Kinase 47 L CK-MB (CK-2) Rel Index 4.6 H Troponin T 0.090 H C-Reactive Protein Total Protein Albumin Prealbumin LDL Cholesterol Direct HDL Cholesterol Arterial Blood Glucose Arterial Blood Ionized Calcium Urine WBC (Auto) 03/28/20 03/29/20 03/29/20 23:22 05:22 10:58 WBC RBC Hgb Hct MCV MCH RDW Plt Count Lymph % (Auto) [place] % (Auto) Eos % (Auto) Lymph # (Auto) [place] # (Auto) Eos # (Auto) Seg Neutrophils % Seg Neuts % (Manual) Lymphocytes % (Manual) Monocytes % (Manual) Basophils % (Manual) Seg Neutrophils # Seg Neutrophils # Man Lymphocytes # (Manual) Monocytes # (Manual) Eosinophils # (Manual) Basophils # (Manual) PT INR D-Dimer ABG pH POC ABG pCO2 POC ABG pO2 ABG pO2 ABG HCO3 ABG O2 Saturation ABG Base Excess ABG Hemoglobin ABG Oxyhemoglobin ABG Potassium ABG Glucose Oxyhemoglobin Carboxyhemoglobin Sodium Potassium Chloride Carbon Dioxide BUN Creatinine Glucose POC Glucose 122 H 116 H 133 H Calcium Ferritin Total Bilirubin Alkaline Phosphatase Lactate Dehydrogenase Total Creatine Kinase CK-MB (CK-2) Rel Index Troponin T C-Reactive Protein Total Protein Albumin Prealbumin LDL Cholesterol Direct HDL Cholesterol Arterial Blood Glucose Arterial Blood Ionized Calcium Urine WBC (Auto) 03/29/20 03/29/20 03/30/20 17:18 23:14 04:57 WBC RBC Hgb Hct MCV MCH RDW Plt Count Lymph % (Auto) [place] % (Auto) Eos % (Auto) Lymph # (Auto) [place] # (Auto) Eos # (Auto) Seg Neutrophils % Seg Neuts % (Manual) Lymphocytes % (Manual) Monocytes % (Manual) Basophils % (Manual) Seg Neutrophils # Seg Neutrophils # Man Lymphocytes # (Manual) Monocytes # (Manual) Eosinophils # (Manual) Basophils # (Manual) PT INR D-Dimer ABG pH POC ABG pCO2 POC ABG pO2 ABG pO2 ABG HCO3 ABG O2 Saturation ABG Base Excess ABG Hemoglobin ABG Oxyhemoglobin ABG Potassium ABG Glucose Oxyhemoglobin Carboxyhemoglobin Sodium Potassium Chloride Carbon Dioxide BUN Creatinine Glucose POC Glucose 111 H 114 H 130 H Calcium Ferritin Total Bilirubin Alkaline Phosphatase Lactate Dehydrogenase Total Creatine Kinase CK-MB (CK-2) Rel Index Troponin T C-Reactive Protein Total Protein Albumin Prealbumin LDL Cholesterol Direct HDL Cholesterol Arterial Blood Glucose Arterial Blood Ionized Calcium Urine WBC (Auto) 03/30/20 03/30/20 03/30/20 11:38 14:47 14:47 WBC 19.9 H RBC Hgb 10.9 L Hct 34.4 L MCV MCH 27 L RDW 16.5 H Plt Count 441 H Lymph % (Auto) 6.4 L [place] % (Auto) Eos % (Auto) Lymph # (Auto) [place] # (Auto) 1.4 H Eos # (Auto) Seg Neutrophils % 86.1 H Seg Neuts % (Manual) Lymphocytes % (Manual) Monocytes % (Manual) Basophils % (Manual) Seg Neutrophils # 17.1 H Seg Neutrophils # Man Lymphocytes # (Manual) Monocytes # (Manual) Eosinophils # (Manual) Basophils # (Manual) PT INR D-Dimer ABG pH POC ABG pCO2 POC ABG pO2 ABG pO2 ABG HCO3 ABG O2 Saturation ABG Base Excess ABG Hemoglobin ABG Oxyhemoglobin ABG Potassium ABG Glucose Oxyhemoglobin Carboxyhemoglobin Sodium 133 L Potassium Chloride 94.6 L Carbon Dioxide 33 H BUN Creatinine < 0.2 L Glucose 194 H POC Glucose 139 H Calcium Ferritin Total Bilirubin Alkaline Phosphatase Lactate Dehydrogenase Total Creatine Kinase CK-MB (CK-2) Rel Index Troponin T C-Reactive Protein Total Protein Albumin 2.8 L Prealbumin LDL Cholesterol Direct HDL Cholesterol Arterial Blood Glucose Arterial Blood Ionized Calcium Urine WBC (Auto) 03/30/20 03/31/20 03/31/20 17:07 05:02 15:21 WBC RBC Hgb Hct MCV MCH RDW Plt Count Lymph % (Auto) [place] % (Auto) Eos % (Auto) Lymph # (Auto) [place] # (Auto) Eos # (Auto) Seg Neutrophils % Seg Neuts % (Manual) Lymphocytes % (Manual) Monocytes % (Manual) Basophils % (Manual) Seg Neutrophils # Seg Neutrophils # Man Lymphocytes # (Manual) Monocytes # (Manual) Eosinophils # (Manual) Basophils # (Manual) PT INR D-Dimer ABG pH POC ABG pCO2 POC ABG pO2 ABG pO2 ABG HCO3 ABG O2 Saturation ABG Base Excess ABG Hemoglobin ABG Oxyhemoglobin ABG Potassium ABG Glucose Oxyhemoglobin Carboxyhemoglobin Sodium Potassium Chloride Carbon Dioxide BUN Creatinine Glucose POC Glucose 163 H 108 H 110 H Calcium Ferritin Total Bilirubin Alkaline Phosphatase Lactate Dehydrogenase Total Creatine Kinase CK-MB (CK-2) Rel Index Troponin T C-Reactive Protein Total Protein Albumin Prealbumin LDL Cholesterol Direct HDL Cholesterol Arterial Blood Glucose Arterial Blood Ionized Calcium Urine WBC (Auto) 03/31/20 03/31/20 04/01/20 17:58 23:19 05:09 WBC RBC Hgb Hct MCV MCH RDW Plt Count Lymph % (Auto) [place] % (Auto) Eos % (Auto) Lymph # (Auto) [place] # (Auto) Eos # (Auto) Seg Neutrophils % Seg Neuts % (Manual) Lymphocytes % (Manual) Monocytes % (Manual) Basophils % (Manual) Seg Neutrophils # Seg Neutrophils # Man Lymphocytes # (Manual) Monocytes # (Manual) Eosinophils # (Manual) Basophils # (Manual) PT INR D-Dimer ABG pH POC ABG pCO2 POC ABG pO2 ABG pO2 ABG HCO3 ABG O2 Saturation ABG Base Excess ABG Hemoglobin ABG Oxyhemoglobin ABG Potassium ABG Glucose Oxyhemoglobin Carboxyhemoglobin Sodium Potassium Chloride Carbon Dioxide BUN Creatinine Glucose POC Glucose 110 H 131 H 124 H Calcium Ferritin Total Bilirubin Alkaline Phosphatase Lactate Dehydrogenase Total Creatine Kinase CK-MB (CK-2) Rel Index Troponin T C-Reactive Protein Total Protein Albumin Prealbumin LDL Cholesterol Direct HDL Cholesterol Arterial Blood Glucose Arterial Blood Ionized Calcium Urine WBC (Auto) 04/01/20 04/01/20 04/01/20 11:50 17:01 23:21 WBC RBC Hgb Hct MCV MCH RDW Plt Count Lymph % (Auto) [place] % (Auto) Eos % (Auto) Lymph # (Auto) [place] # (Auto) Eos # (Auto) Seg Neutrophils % Seg Neuts % (Manual) Lymphocytes % (Manual) Monocytes % (Manual) Basophils % (Manual) Seg Neutrophils # Seg Neutrophils # Man Lymphocytes # (Manual) Monocytes # (Manual) Eosinophils # (Manual) Basophils # (Manual) PT INR D-Dimer ABG pH POC ABG pCO2 POC ABG pO2 ABG pO2 ABG HCO3 ABG O2 Saturation ABG Base Excess ABG Hemoglobin ABG Oxyhemoglobin ABG Potassium ABG Glucose Oxyhemoglobin Carboxyhemoglobin Sodium Potassium Chloride Carbon Dioxide BUN Creatinine Glucose POC Glucose 136 H 115 H 124 H Calcium Ferritin Total Bilirubin Alkaline Phosphatase Lactate Dehydrogenase Total Creatine Kinase CK-MB (CK-2) Rel Index Troponin T C-Reactive Protein Total Protein Albumin Prealbumin LDL Cholesterol Direct HDL Cholesterol Arterial Blood Glucose Arterial Blood Ionized Calcium Urine WBC (Auto) 04/02/20 04/02/20 04/02/20 05:27 11:58 17:58 WBC RBC Hgb Hct MCV MCH RDW Plt Count Lymph % (Auto) [place] % (Auto) Eos % (Auto) Lymph # (Auto) [place] # (Auto) Eos # (Auto) Seg Neutrophils % Seg Neuts % (Manual) Lymphocytes % (Manual) Monocytes % (Manual) Basophils % (Manual) Seg Neutrophils # Seg Neutrophils # Man Lymphocytes # (Manual) Monocytes # (Manual) Eosinophils # (Manual) Basophils # (Manual) PT INR D-Dimer ABG pH POC ABG pCO2 POC ABG pO2 ABG pO2 ABG HCO3 ABG O2 Saturation ABG Base Excess ABG Hemoglobin ABG Oxyhemoglobin ABG Potassium ABG Glucose Oxyhemoglobin Carboxyhemoglobin Sodium Potassium Chloride Carbon Dioxide BUN Creatinine Glucose POC Glucose 117 H 133 H 122 H Calcium Ferritin Total Bilirubin Alkaline Phosphatase Lactate Dehydrogenase Total Creatine Kinase CK-MB (CK-2) Rel Index Troponin T C-Reactive Protein Total Protein Albumin Prealbumin LDL Cholesterol Direct HDL Cholesterol Arterial Blood Glucose Arterial Blood Ionized Calcium Urine WBC (Auto) 04/02/20 04/03/20 04/03/20 23:12 05:11 11:11 WBC RBC Hgb Hct MCV MCH RDW Plt Count Lymph % (Auto) [place] % (Auto) Eos % (Auto) Lymph # (Auto) [place] # (Auto) Eos # (Auto) Seg Neutrophils % Seg Neuts % (Manual) Lymphocytes % (Manual) Monocytes % (Manual) Basophils % (Manual) Seg Neutrophils # Seg Neutrophils # Man Lymphocytes # (Manual) Monocytes # (Manual) Eosinophils # (Manual) Basophils # (Manual) PT INR D-Dimer ABG pH POC ABG pCO2 POC ABG pO2 ABG pO2 ABG HCO3 ABG O2 Saturation ABG Base Excess ABG Hemoglobin ABG Oxyhemoglobin ABG Potassium ABG Glucose Oxyhemoglobin Carboxyhemoglobin Sodium Potassium Chloride Carbon Dioxide BUN Creatinine Glucose POC Glucose 130 H 139 H 136 H Calcium Ferritin Total Bilirubin Alkaline Phosphatase Lactate Dehydrogenase Total Creatine Kinase CK-MB (CK-2) Rel Index Troponin T C-Reactive Protein Total Protein Albumin Prealbumin LDL Cholesterol Direct HDL Cholesterol Arterial Blood Glucose Arterial Blood Ionized Calcium Urine WBC (Auto) 04/03/20 04/03/20 04/04/20 16:51 23:25 05:29 WBC RBC Hgb Hct MCV MCH RDW Plt Count Lymph % (Auto) [place] % (Auto) Eos % (Auto) Lymph # (Auto) [place] # (Auto) Eos # (Auto) Seg Neutrophils % Seg Neuts % (Manual) Lymphocytes % (Manual) Monocytes % (Manual) Basophils % (Manual) Seg Neutrophils # Seg Neutrophils # Man Lymphocytes # (Manual) Monocytes # (Manual) Eosinophils # (Manual) Basophils # (Manual) PT INR D-Dimer ABG pH POC ABG pCO2 POC ABG pO2 ABG pO2 ABG HCO3 ABG O2 Saturation ABG Base Excess ABG Hemoglobin ABG Oxyhemoglobin ABG Potassium ABG Glucose Oxyhemoglobin Carboxyhemoglobin Sodium Potassium Chloride Carbon Dioxide BUN Creatinine Glucose POC Glucose 118 H 111 H 126 H Calcium Ferritin Total Bilirubin Alkaline Phosphatase Lactate Dehydrogenase Total Creatine Kinase CK-MB (CK-2) Rel Index Troponin T C-Reactive Protein Total Protein Albumin Prealbumin LDL Cholesterol Direct HDL Cholesterol Arterial Blood Glucose Arterial Blood Ionized Calcium Urine WBC (Auto) 04/04/20 04/04/20 04/04/20 11:47 17:41 23:05 WBC RBC Hgb Hct MCV MCH RDW Plt Count Lymph % (Auto) [place] % (Auto) Eos % (Auto) Lymph # (Auto) [place] # (Auto) Eos # (Auto) Seg Neutrophils % Seg Neuts % (Manual) Lymphocytes % (Manual) Monocytes % (Manual) Basophils % (Manual) Seg Neutrophils # Seg Neutrophils # Man Lymphocytes # (Manual) Monocytes # (Manual) Eosinophils # (Manual) Basophils # (Manual) PT INR D-Dimer ABG pH POC ABG pCO2 POC ABG pO2 ABG pO2 ABG HCO3 ABG O2 Saturation ABG Base Excess ABG Hemoglobin ABG Oxyhemoglobin ABG Potassium ABG Glucose Oxyhemoglobin Carboxyhemoglobin Sodium Potassium Chloride Carbon Dioxide BUN Creatinine Glucose POC Glucose 123 H 120 H 119 H Calcium Ferritin Total Bilirubin Alkaline Phosphatase Lactate Dehydrogenase Total Creatine Kinase CK-MB (CK-2) Rel Index Troponin T C-Reactive Protein Total Protein Albumin Prealbumin LDL Cholesterol Direct HDL Cholesterol Arterial Blood Glucose Arterial Blood Ionized Calcium Urine WBC (Auto) 04/05/20 04/05/20 04/05/20 05:14 12:16 18:48 WBC RBC Hgb Hct MCV MCH RDW Plt Count Lymph % (Auto) [place] % (Auto) Eos % (Auto) Lymph # (Auto) [place] # (Auto) Eos # (Auto) Seg Neutrophils % Seg Neuts % (Manual) Lymphocytes % (Manual) Monocytes % (Manual) Basophils % (Manual) Seg Neutrophils # Seg Neutrophils # Man Lymphocytes # (Manual) Monocytes # (Manual) Eosinophils # (Manual) Basophils # (Manual) PT INR D-Dimer ABG pH POC ABG pCO2 POC ABG pO2 ABG pO2 ABG HCO3 ABG O2 Saturation ABG Base Excess ABG Hemoglobin ABG Oxyhemoglobin ABG Potassium ABG Glucose Oxyhemoglobin Carboxyhemoglobin Sodium Potassium Chloride Carbon Dioxide BUN Creatinine Glucose POC Glucose 123 H 148 H 106 H Calcium Ferritin Total Bilirubin Alkaline Phosphatase Lactate Dehydrogenase Total Creatine Kinase CK-MB (CK-2) Rel Index Troponin T C-Reactive Protein Total Protein Albumin Prealbumin LDL Cholesterol Direct HDL Cholesterol Arterial Blood Glucose Arterial Blood Ionized Calcium Urine WBC (Auto) 04/06/20 04/06/20 04/06/20 00:47 03:26 08:24 WBC RBC Hgb Hct MCV MCH RDW Plt Count Lymph % (Auto) [place] % (Auto) Eos % (Auto) Lymph # (Auto) [place] # (Auto) Eos # (Auto) Seg Neutrophils % Seg Neuts % (Manual) Lymphocytes % (Manual) Monocytes % (Manual) Basophils % (Manual) Seg Neutrophils # Seg Neutrophils # Man Lymphocytes # (Manual) Monocytes # (Manual) Eosinophils # (Manual) Basophils # (Manual) PT INR D-Dimer ABG pH POC ABG pCO2 POC ABG pO2 ABG pO2 ABG HCO3 ABG O2 Saturation ABG Base Excess ABG Hemoglobin ABG Oxyhemoglobin ABG Potassium ABG Glucose Oxyhemoglobin Carboxyhemoglobin Sodium Potassium Chloride Carbon Dioxide BUN Creatinine Glucose POC Glucose 129 H 134 H 131 H Calcium Ferritin Total Bilirubin Alkaline Phosphatase Lactate Dehydrogenase Total Creatine Kinase CK-MB (CK-2) Rel Index Troponin T C-Reactive Protein Total Protein Albumin Prealbumin LDL Cholesterol Direct HDL Cholesterol Arterial Blood Glucose Arterial Blood Ionized Calcium Urine WBC (Auto) 04/06/20 04/06/20 04/06/20 11:16 16:27 23:01 WBC RBC Hgb Hct MCV MCH RDW Plt Count Lymph % (Auto) [place] % (Auto) Eos % (Auto) Lymph # (Auto) [place] # (Auto) Eos # (Auto) Seg Neutrophils % Seg Neuts % (Manual) Lymphocytes % (Manual) Monocytes % (Manual) Basophils % (Manual) Seg Neutrophils # Seg Neutrophils # Man Lymphocytes # (Manual) Monocytes # (Manual) Eosinophils # (Manual) Basophils # (Manual) PT INR D-Dimer ABG pH POC ABG pCO2 POC ABG pO2 ABG pO2 ABG HCO3 ABG O2 Saturation ABG Base Excess ABG Hemoglobin ABG Oxyhemoglobin ABG Potassium ABG Glucose Oxyhemoglobin Carboxyhemoglobin Sodium Potassium Chloride Carbon Dioxide BUN Creatinine Glucose POC Glucose 131 H 107 H 125 H Calcium Ferritin Total Bilirubin Alkaline Phosphatase Lactate Dehydrogenase Total Creatine Kinase CK-MB (CK-2) Rel Index Troponin T C-Reactive Protein Total Protein Albumin Prealbumin LDL Cholesterol Direct HDL Cholesterol Arterial Blood Glucose Arterial Blood Ionized Calcium Urine WBC (Auto) 04/07/20 04/07/20 04/07/20 05:24 12:41 17:40 WBC RBC Hgb Hct MCV MCH RDW Plt Count Lymph % (Auto) [place] % (Auto) Eos % (Auto) Lymph # (Auto) [place] # (Auto) Eos # (Auto) Seg Neutrophils % Seg Neuts % (Manual) Lymphocytes % (Manual) Monocytes % (Manual) Basophils % (Manual) Seg Neutrophils # Seg Neutrophils # Man Lymphocytes # (Manual) Monocytes # (Manual) Eosinophils # (Manual) Basophils # (Manual) PT INR D-Dimer ABG pH POC ABG pCO2 POC ABG pO2 ABG pO2 ABG HCO3 ABG O2 Saturation ABG Base Excess ABG Hemoglobin ABG Oxyhemoglobin ABG Potassium ABG Glucose Oxyhemoglobin Carboxyhemoglobin Sodium Potassium Chloride Carbon Dioxide BUN Creatinine Glucose POC Glucose 125 H 145 H 123 H Calcium Ferritin Total Bilirubin Alkaline Phosphatase Lactate Dehydrogenase Total Creatine Kinase CK-MB (CK-2) Rel Index Troponin T C-Reactive Protein Total Protein Albumin Prealbumin LDL Cholesterol Direct HDL Cholesterol Arterial Blood Glucose Arterial Blood Ionized Calcium Urine WBC (Auto) 04/07/20 04/08/20 04/08/20 23:22 05:40 11:29 WBC RBC Hgb Hct MCV MCH RDW Plt Count Lymph % (Auto) [place] % (Auto) Eos % (Auto) Lymph # (Auto) [place] # (Auto) Eos # (Auto) Seg Neutrophils % Seg Neuts % (Manual) Lymphocytes % (Manual) Monocytes % (Manual) Basophils % (Manual) Seg Neutrophils # Seg Neutrophils # Man Lymphocytes # (Manual) Monocytes # (Manual) Eosinophils # (Manual) Basophils # (Manual) PT INR D-Dimer ABG pH POC ABG pCO2 POC ABG pO2 ABG pO2 ABG HCO3 ABG O2 Saturation ABG Base Excess ABG Hemoglobin ABG Oxyhemoglobin ABG Potassium ABG Glucose Oxyhemoglobin Carboxyhemoglobin Sodium Potassium Chloride Carbon Dioxide BUN Creatinine Glucose POC Glucose 133 H 125 H 116 H Calcium Ferritin Total Bilirubin Alkaline Phosphatase Lactate Dehydrogenase Total Creatine Kinase CK-MB (CK-2) Rel Index Troponin T C-Reactive Protein Total Protein Albumin Prealbumin LDL Cholesterol Direct HDL Cholesterol Arterial Blood Glucose Arterial Blood Ionized Calcium Urine WBC (Auto) 04/08/20 04/09/20 04/09/20 17:43 05:47 12:22 WBC RBC Hgb Hct MCV MCH RDW Plt Count Lymph % (Auto) [place] % (Auto) Eos % (Auto) Lymph # (Auto) [place] # (Auto) Eos # (Auto) Seg Neutrophils % Seg Neuts % (Manual) Lymphocytes % (Manual) Monocytes % (Manual) Basophils % (Manual) Seg Neutrophils # Seg Neutrophils # Man Lymphocytes # (Manual) Monocytes # (Manual) Eosinophils # (Manual) Basophils # (Manual) PT INR D-Dimer ABG pH POC ABG pCO2 POC ABG pO2 ABG pO2 ABG HCO3 ABG O2 Saturation ABG Base Excess ABG Hemoglobin ABG Oxyhemoglobin ABG Potassium ABG Glucose Oxyhemoglobin Carboxyhemoglobin Sodium Potassium Chloride Carbon Dioxide BUN Creatinine Glucose POC Glucose 123 H 108 H 116 H Calcium Ferritin Total Bilirubin Alkaline Phosphatase Lactate Dehydrogenase Total Creatine Kinase CK-MB (CK-2) Rel Index Troponin T C-Reactive Protein Total Protein Albumin Prealbumin LDL Cholesterol Direct HDL Cholesterol Arterial Blood Glucose Arterial Blood Ionized Calcium Urine WBC (Auto) 04/09/20 04/09/20 04/10/20 17:24 23:52 06:10 WBC RBC Hgb Hct MCV MCH RDW Plt Count Lymph % (Auto) [place] % (Auto) Eos % (Auto) Lymph # (Auto) [place] # (Auto) Eos # (Auto) Seg Neutrophils % Seg Neuts % (Manual) Lymphocytes % (Manual) Monocytes % (Manual) Basophils % (Manual) Seg Neutrophils # Seg Neutrophils # Man Lymphocytes # (Manual) Monocytes # (Manual) Eosinophils # (Manual) Basophils # (Manual) PT INR D-Dimer ABG pH POC ABG pCO2 POC ABG pO2 ABG pO2 ABG HCO3 ABG O2 Saturation ABG Base Excess ABG Hemoglobin ABG Oxyhemoglobin ABG Potassium ABG Glucose Oxyhemoglobin Carboxyhemoglobin Sodium Potassium Chloride Carbon Dioxide BUN Creatinine Glucose POC Glucose 108 H 126 H 122 H Calcium Ferritin Total Bilirubin Alkaline Phosphatase Lactate Dehydrogenase Total Creatine Kinase CK-MB (CK-2) Rel Index Troponin T C-Reactive Protein Total Protein Albumin Prealbumin LDL Cholesterol Direct HDL Cholesterol Arterial Blood Glucose Arterial Blood Ionized Calcium Urine WBC (Auto) 04/10/20 04/10/20 04/10/20 11:27 18:11 23:24 WBC RBC Hgb Hct MCV MCH RDW Plt Count Lymph % (Auto) [place] % (Auto) Eos % (Auto) Lymph # (Auto) [place] # (Auto) Eos # (Auto) Seg Neutrophils % Seg Neuts % (Manual) Lymphocytes % (Manual) Monocytes % (Manual) Basophils % (Manual) Seg Neutrophils # Seg Neutrophils # Man Lymphocytes # (Manual) Monocytes # (Manual) Eosinophils # (Manual) Basophils # (Manual) PT INR D-Dimer ABG pH POC ABG pCO2 POC ABG pO2 ABG pO2 ABG HCO3 ABG O2 Saturation ABG Base Excess ABG Hemoglobin ABG Oxyhemoglobin ABG Potassium ABG Glucose Oxyhemoglobin Carboxyhemoglobin Sodium Potassium Chloride Carbon Dioxide BUN Creatinine Glucose POC Glucose 129 H 125 H 107 H Calcium Ferritin Total Bilirubin Alkaline Phosphatase Lactate Dehydrogenase Total Creatine Kinase CK-MB (CK-2) Rel Index Troponin T C-Reactive Protein Total Protein Albumin Prealbumin LDL Cholesterol Direct HDL Cholesterol Arterial Blood Glucose Arterial Blood Ionized Calcium Urine WBC (Auto) 04/11/20 04/11/20 04/11/20 05:28 11:46 23:49 WBC RBC Hgb Hct MCV MCH RDW Plt Count Lymph % (Auto) [place] % (Auto) Eos % (Auto) Lymph # (Auto) [place] # (Auto) Eos # (Auto) Seg Neutrophils % Seg Neuts % (Manual) Lymphocytes % (Manual) Monocytes % (Manual) Basophils % (Manual) Seg Neutrophils # Seg Neutrophils # Man Lymphocytes # (Manual) Monocytes # (Manual) Eosinophils # (Manual) Basophils # (Manual) PT INR D-Dimer ABG pH POC ABG pCO2 POC ABG pO2 ABG pO2 ABG HCO3 ABG O2 Saturation ABG Base Excess ABG Hemoglobin ABG Oxyhemoglobin ABG Potassium ABG Glucose Oxyhemoglobin Carboxyhemoglobin Sodium Potassium Chloride Carbon Dioxide BUN Creatinine Glucose POC Glucose 122 H 122 H 116 H Calcium Ferritin Total Bilirubin Alkaline Phosphatase Lactate Dehydrogenase Total Creatine Kinase CK-MB (CK-2) Rel Index Troponin T C-Reactive Protein Total Protein Albumin Prealbumin LDL Cholesterol Direct HDL Cholesterol Arterial Blood Glucose Arterial Blood Ionized Calcium Urine WBC (Auto) 04/12/20 04/12/20 04/12/20 09:07 09:07 11:39 WBC 13.1 H RBC 3.59 L Hgb 9.5 L Hct 29.8 L MCV 83 L MCH 26 L RDW 16.6 H Plt Count 591 H Lymph % (Auto) [place] % (Auto) Eos % (Auto) Lymph # (Auto) [place] # (Auto) Eos # (Auto) Seg Neutrophils % Seg Neuts % (Manual) 86.0 H Lymphocytes % (Manual) 7.0 L Monocytes % (Manual) Basophils % (Manual) Seg Neutrophils # Seg Neutrophils # Man 11.3 H Lymphocytes # (Manual) 0.9 L Monocytes # (Manual) Eosinophils # (Manual) Basophils # (Manual) PT INR D-Dimer ABG pH POC ABG pCO2 POC ABG pO2 ABG pO2 ABG HCO3 ABG O2 Saturation ABG Base Excess ABG Hemoglobin ABG Oxyhemoglobin ABG Potassium ABG Glucose Oxyhemoglobin Carboxyhemoglobin Sodium Potassium Chloride Carbon Dioxide 36 H BUN Creatinine < 0.2 L Glucose 132 H POC Glucose 136 H Calcium Ferritin Total Bilirubin Alkaline Phosphatase Lactate Dehydrogenase Total Creatine Kinase CK-MB (CK-2) Rel Index Troponin T C-Reactive Protein Total Protein Albumin 2.7 L Prealbumin LDL Cholesterol Direct HDL Cholesterol Arterial Blood Glucose Arterial Blood Ionized Calcium Urine WBC (Auto) 04/12/20 04/12/20 04/13/20 18:13 23:07 05:45 WBC RBC Hgb Hct MCV MCH RDW Plt Count Lymph % (Auto) [place] % (Auto) Eos % (Auto) Lymph # (Auto) [place] # (Auto) Eos # (Auto) Seg Neutrophils % Seg Neuts % (Manual) Lymphocytes % (Manual) Monocytes % (Manual) Basophils % (Manual) Seg Neutrophils # Seg Neutrophils # Man Lymphocytes # (Manual) Monocytes # (Manual) Eosinophils # (Manual) Basophils # (Manual) PT INR D-Dimer ABG pH POC ABG pCO2 POC ABG pO2 ABG pO2 ABG HCO3 ABG O2 Saturation ABG Base Excess ABG Hemoglobin ABG Oxyhemoglobin ABG Potassium ABG Glucose Oxyhemoglobin Carboxyhemoglobin Sodium Potassium Chloride Carbon Dioxide BUN Creatinine Glucose POC Glucose 107 H 106 H 125 H Calcium Ferritin Total Bilirubin Alkaline Phosphatase Lactate Dehydrogenase Total Creatine Kinase CK-MB (CK-2) Rel Index Troponin T C-Reactive Protein Total Protein Albumin Prealbumin LDL Cholesterol Direct HDL Cholesterol Arterial Blood Glucose Arterial Blood Ionized Calcium Urine WBC (Auto) 04/13/20 04/13/20 04/13/20 11:18 17:56 23:33 WBC RBC Hgb Hct MCV MCH RDW Plt Count Lymph % (Auto) [place] % (Auto) Eos % (Auto) Lymph # (Auto) [place] # (Auto) Eos # (Auto) Seg Neutrophils % Seg Neuts % (Manual) Lymphocytes % (Manual) Monocytes % (Manual) Basophils % (Manual) Seg Neutrophils # Seg Neutrophils # Man Lymphocytes # (Manual) Monocytes # (Manual) Eosinophils # (Manual) Basophils # (Manual) PT INR D-Dimer ABG pH POC ABG pCO2 POC ABG pO2 ABG pO2 ABG HCO3 ABG O2 Saturation ABG Base Excess ABG Hemoglobin ABG Oxyhemoglobin ABG Potassium ABG Glucose Oxyhemoglobin Carboxyhemoglobin Sodium Potassium Chloride Carbon Dioxide BUN Creatinine Glucose POC Glucose 133 H 110 H 114 H Calcium Ferritin Total Bilirubin Alkaline Phosphatase Lactate Dehydrogenase Total Creatine Kinase CK-MB (CK-2) Rel Index Troponin T C-Reactive Protein Total Protein Albumin Prealbumin LDL Cholesterol Direct HDL Cholesterol Arterial Blood Glucose Arterial Blood Ionized Calcium Urine WBC (Auto) 04/14/20 04/14/20 04/14/20 05:58 11:45 17:48 WBC RBC Hgb Hct MCV MCH RDW Plt Count Lymph % (Auto) [place] % (Auto) Eos % (Auto) Lymph # (Auto) [place] # (Auto) Eos # (Auto) Seg Neutrophils % Seg Neuts % (Manual) Lymphocytes % (Manual) Monocytes % (Manual) Basophils % (Manual) Seg Neutrophils # Seg Neutrophils # Man Lymphocytes # (Manual) Monocytes # (Manual) Eosinophils # (Manual) Basophils # (Manual) PT INR D-Dimer ABG pH POC ABG pCO2 POC ABG pO2 ABG pO2 ABG HCO3 ABG O2 Saturation ABG Base Excess ABG Hemoglobin ABG Oxyhemoglobin ABG Potassium ABG Glucose Oxyhemoglobin Carboxyhemoglobin Sodium Potassium Chloride Carbon Dioxide BUN Creatinine Glucose POC Glucose 115 H 122 H 124 H Calcium Ferritin Total Bilirubin Alkaline Phosphatase Lactate Dehydrogenase Total Creatine Kinase CK-MB (CK-2) Rel Index Troponin T C-Reactive Protein Total Protein Albumin Prealbumin LDL Cholesterol Direct HDL Cholesterol Arterial Blood Glucose Arterial Blood Ionized Calcium Urine WBC (Auto) 04/15/20 04/15/20 04/15/20 00:11 05:38 11:31 WBC RBC Hgb Hct MCV MCH RDW Plt Count Lymph % (Auto) [place] % (Auto) Eos % (Auto) Lymph # (Auto) [place] # (Auto) Eos # (Auto) Seg Neutrophils % Seg Neuts % (Manual) Lymphocytes % (Manual) Monocytes % (Manual) Basophils % (Manual) Seg Neutrophils # Seg Neutrophils # Man Lymphocytes # (Manual) Monocytes # (Manual) Eosinophils # (Manual) Basophils # (Manual) PT INR D-Dimer ABG pH POC ABG pCO2 POC ABG pO2 ABG pO2 ABG HCO3 ABG O2 Saturation ABG Base Excess ABG Hemoglobin ABG Oxyhemoglobin ABG Potassium ABG Glucose Oxyhemoglobin Carboxyhemoglobin Sodium Potassium Chloride Carbon Dioxide BUN Creatinine Glucose POC Glucose 120 H 109 H 123 H Calcium Ferritin Total Bilirubin Alkaline Phosphatase Lactate Dehydrogenase Total Creatine Kinase CK-MB (CK-2) Rel Index Troponin T C-Reactive Protein Total Protein Albumin Prealbumin LDL Cholesterol Direct HDL Cholesterol Arterial Blood Glucose Arterial Blood Ionized Calcium Urine WBC (Auto) 04/15/20 04/16/20 04/16/20 17:35 06:00 11:29 WBC RBC Hgb Hct MCV MCH RDW Plt Count Lymph % (Auto) [place] % (Auto) Eos % (Auto) Lymph # (Auto) [place] # (Auto) Eos # (Auto) Seg Neutrophils % Seg Neuts % (Manual) Lymphocytes % (Manual) Monocytes % (Manual) Basophils % (Manual) Seg Neutrophils # Seg Neutrophils # Man Lymphocytes # (Manual) Monocytes # (Manual) Eosinophils # (Manual) Basophils # (Manual) PT INR D-Dimer ABG pH POC ABG pCO2 POC ABG pO2 ABG pO2 ABG HCO3 ABG O2 Saturation ABG Base Excess ABG Hemoglobin ABG Oxyhemoglobin ABG Potassium ABG Glucose Oxyhemoglobin Carboxyhemoglobin Sodium Potassium Chloride Carbon Dioxide BUN Creatinine Glucose POC Glucose 111 H 142 H 108 H Calcium Ferritin Total Bilirubin Alkaline Phosphatase Lactate Dehydrogenase Total Creatine Kinase CK-MB (CK-2) Rel Index Troponin T C-Reactive Protein Total Protein Albumin Prealbumin LDL Cholesterol Direct HDL Cholesterol Arterial Blood Glucose Arterial Blood Ionized Calcium Urine WBC (Auto) 1204/17/20 04/17/20 05:09 06:53 06:53 WBC 14.2 H RBC Hgb 10.1 L Hct 31.5 L MCV MCH 27 L RDW 17.2 H Plt Count 643 H Lymph % (Auto) [place] % (Auto) Eos % (Auto) Lymph # (Auto) [place] # (Auto) Eos # (Auto) Seg Neutrophils % Seg Neuts % (Manual) Lymphocytes % (Manual) Monocytes % (Manual) Basophils % (Manual) Seg Neutrophils # Seg Neutrophils # Man Lymphocytes # (Manual) Monocytes # (Manual) Eosinophils # (Manual) Basophils # (Manual) PT INR D-Dimer ABG pH POC ABG pCO2 POC ABG pO2 ABG pO2 ABG HCO3 ABG O2 Saturation ABG Base Excess ABG Hemoglobin ABG Oxyhemoglobin ABG Potassium ABG Glucose Oxyhemoglobin Carboxyhemoglobin Sodium Potassium Chloride 97.7 L Carbon Dioxide 38 H BUN Creatinine < 0.2 L Glucose 126 H POC Glucose 131 H Calcium Ferritin Total Bilirubin Alkaline Phosphatase Lactate Dehydrogenase Total Creatine Kinase CK-MB (CK-2) Rel Index Troponin T C-Reactive Protein Total Protein Albumin Prealbumin LDL Cholesterol Direct HDL Cholesterol Arterial Blood Glucose Arterial Blood Ionized Calcium Urine WBC (Auto) 04/17/20 04/18/20 04/18/20 11:21 00:23 04:01 WBC 15.3 H RBC Hgb 10.1 L Hct 31.9 L MCV 82 L MCH 26 L RDW 17.2 H Plt Count 665 H Lymph % (Auto) 12.9 L [place] % (Auto) Eos % (Auto) Lymph # (Auto) [place] # (Auto) 1.1 H Eos # (Auto) Seg Neutrophils % 78.0 H Seg Neuts % (Manual) Lymphocytes % (Manual) Monocytes % (Manual) Basophils % (Manual) Seg Neutrophils # 11.9 H Seg Neutrophils # Man Lymphocytes # (Manual) Monocytes # (Manual) Eosinophils # (Manual) Basophils # (Manual) PT INR D-Dimer ABG pH POC ABG pCO2 POC ABG pO2 ABG pO2 ABG HCO3 ABG O2 Saturation ABG Base Excess ABG Hemoglobin ABG Oxyhemoglobin ABG Potassium ABG Glucose Oxyhemoglobin Carboxyhemoglobin Sodium Potassium Chloride Carbon Dioxide BUN Creatinine Glucose POC Glucose 140 H 125 H Calcium Ferritin Total Bilirubin Alkaline Phosphatase Lactate Dehydrogenase Total Creatine Kinase CK-MB (CK-2) Rel Index Troponin T C-Reactive Protein Total Protein Albumin Prealbumin LDL Cholesterol Direct HDL Cholesterol Arterial Blood Glucose Arterial Blood Ionized Calcium Urine WBC (Auto) 04/18/20 04/18/20 04/18/20 04:01 11:29 17:30 WBC RBC Hgb Hct MCV MCH RDW Plt Count Lymph % (Auto) [place] % (Auto) Eos % (Auto) Lymph # (Auto) [place] # (Auto) Eos # (Auto) Seg Neutrophils % Seg Neuts % (Manual) Lymphocytes % (Manual) Monocytes % (Manual) Basophils % (Manual) Seg Neutrophils # Seg Neutrophils # Man Lymphocytes # (Manual) Monocytes # (Manual) Eosinophils # (Manual) Basophils # (Manual) PT INR D-Dimer ABG pH POC ABG pCO2 POC ABG pO2 ABG pO2 ABG HCO3 ABG O2 Saturation ABG Base Excess ABG Hemoglobin ABG Oxyhemoglobin ABG Potassium ABG Glucose Oxyhemoglobin Carboxyhemoglobin Sodium Potassium Chloride 97.0 L Carbon Dioxide 38 H BUN Creatinine < 0.2 L Glucose 117 H POC Glucose 136 H 107 H Calcium Ferritin Total Bilirubin Alkaline Phosphatase Lactate Dehydrogenase Total Creatine Kinase CK-MB (CK-2) Rel Index Troponin T C-Reactive Protein Total Protein Albumin Prealbumin LDL Cholesterol Direct HDL Cholesterol Arterial Blood Glucose Arterial Blood Ionized Calcium Urine WBC (Auto) 04/18/20 04/19/20 04/19/20 23:19 06:51 06:51 WBC 12.2 H RBC Hgb 9.8 L Hct 31.1 L MCV 82 L MCH 26 L RDW 17.2 H Plt Count 549 H Lymph % (Auto) 6.5 L [place] % (Auto) Eos % (Auto) Lymph # (Auto) 0.8 L [place] # (Auto) Eos # (Auto) Seg Neutrophils % 86.7 H Seg Neuts % (Manual) Lymphocytes % (Manual) Monocytes % (Manual) Basophils % (Manual) Seg Neutrophils # 10.6 H Seg Neutrophils # Man Lymphocytes # (Manual) Monocytes # (Manual) Eosinophils # (Manual) Basophils # (Manual) PT INR D-Dimer ABG pH POC ABG pCO2 POC ABG pO2 ABG pO2 ABG HCO3 ABG O2 Saturation ABG Base Excess ABG Hemoglobin ABG Oxyhemoglobin ABG Potassium ABG Glucose Oxyhemoglobin Carboxyhemoglobin Sodium Potassium Chloride 97.8 L Carbon Dioxide 38 H BUN Creatinine < 0.2 L Glucose 123 H POC Glucose 127 H Calcium Ferritin Total Bilirubin Alkaline Phosphatase Lactate Dehydrogenase Total Creatine Kinase CK-MB (CK-2) Rel Index Troponin T C-Reactive Protein Total Protein Albumin Prealbumin LDL Cholesterol Direct HDL Cholesterol Arterial Blood Glucose Arterial Blood Ionized Calcium Urine WBC (Auto) 04/19/20 04/19/20 04/20/20 13:41 18:33 05:56 WBC RBC Hgb Hct MCV MCH RDW Plt Count Lymph % (Auto) [place] % (Auto) Eos % (Auto) Lymph # (Auto) [place] # (Auto) Eos # (Auto) Seg Neutrophils % Seg Neuts % (Manual) Lymphocytes % (Manual) Monocytes % (Manual) Basophils % (Manual) Seg Neutrophils # Seg Neutrophils # Man Lymphocytes # (Manual) Monocytes # (Manual) Eosinophils # (Manual) Basophils # (Manual) PT INR D-Dimer ABG pH POC ABG pCO2 POC ABG pO2 ABG pO2 ABG HCO3 ABG O2 Saturation ABG Base Excess ABG Hemoglobin ABG Oxyhemoglobin ABG Potassium ABG Glucose Oxyhemoglobin Carboxyhemoglobin Sodium Potassium Chloride Carbon Dioxide BUN Creatinine Glucose POC Glucose 116 H 124 H 130 H Calcium Ferritin Total Bilirubin Alkaline Phosphatase Lactate Dehydrogenase Total Creatine Kinase CK-MB (CK-2) Rel Index Troponin T C-Reactive Protein Total Protein Albumin Prealbumin LDL Cholesterol Direct HDL Cholesterol Arterial Blood Glucose Arterial Blood Ionized Calcium Urine WBC (Auto) 04/20/20 04/20/20 04/20/20 06:28 06:28 11:46 WBC RBC Hgb 10.2 L Hct 31.5 L MCV 82 L MCH 27 L RDW 17.1 H Plt Count 546 H Lymph % (Auto) 10.0 L [place] % (Auto) 9.8 H Eos % (Auto) Lymph # (Auto) 1.1 L [place] # (Auto) 1.1 H Eos # (Auto) Seg Neutrophils % 78.4 H Seg Neuts % (Manual) Lymphocytes % (Manual) Monocytes % (Manual) Basophils % (Manual) Seg Neutrophils # 8.5 H Seg Neutrophils # Man Lymphocytes # (Manual) Monocytes # (Manual) Eosinophils # (Manual) Basophils # (Manual) PT INR D-Dimer ABG pH POC ABG pCO2 POC ABG pO2 ABG pO2 ABG HCO3 ABG O2 Saturation ABG Base Excess ABG Hemoglobin ABG Oxyhemoglobin ABG Potassium ABG Glucose Oxyhemoglobin Carboxyhemoglobin Sodium Potassium Chloride 97.0 L Carbon Dioxide 38 H BUN Creatinine < 0.2 L Glucose 138 H POC Glucose 130 H Calcium Ferritin Total Bilirubin Alkaline Phosphatase Lactate Dehydrogenase Total Creatine Kinase CK-MB (CK-2) Rel Index Troponin T C-Reactive Protein Total Protein Albumin Prealbumin LDL Cholesterol Direct HDL Cholesterol Arterial Blood Glucose Arterial Blood Ionized Calcium Urine WBC (Auto) 04/20/20 04/21/20 04/21/20 23:31 05:55 05:55 WBC RBC Hgb 10.0 L Hct 31.1 L MCV 82 L MCH 26 L RDW 17.0 H Plt Count 535 H Lymph % (Auto) [place] % (Auto) 9.2 H Eos % (Auto) Lymph # (Auto) 1.1 L [place] # (Auto) Eos # (Auto) Seg Neutrophils % 75.4 H Seg Neuts % (Manual) Lymphocytes % (Manual) Monocytes % (Manual) Basophils % (Manual) Seg Neutrophils # Seg Neutrophils # Man Lymphocytes # (Manual) Monocytes # (Manual) Eosinophils # (Manual) Basophils # (Manual) PT INR D-Dimer ABG pH POC ABG pCO2 POC ABG pO2 ABG pO2 ABG HCO3 ABG O2 Saturation ABG Base Excess ABG Hemoglobin ABG Oxyhemoglobin ABG Potassium ABG Glucose Oxyhemoglobin Carboxyhemoglobin Sodium Potassium Chloride 95.0 L Carbon Dioxide 34 H BUN Creatinine < 0.2 L Glucose 125 H POC Glucose 116 H Calcium Ferritin Total Bilirubin Alkaline Phosphatase Lactate Dehydrogenase Total Creatine Kinase CK-MB (CK-2) Rel Index Troponin T C-Reactive Protein Total Protein Albumin Prealbumin LDL Cholesterol Direct HDL Cholesterol Arterial Blood Glucose Arterial Blood Ionized Calcium Urine WBC (Auto) 04/22/20 04/22/20 04/22/20 00:01 07:45 07:45 WBC RBC Hgb 10.0 L Hct 30.7 L MCV 81 L MCH 27 L RDW 17.1 H Plt Count 490 H Lymph % (Auto) [place] % (Auto) Eos % (Auto) Lymph # (Auto) [place] # (Auto) Eos # (Auto) Seg Neutrophils % Seg Neuts % (Manual) 75.0 H Lymphocytes % (Manual) 11.0 L Monocytes % (Manual) 9.0 H Basophils % (Manual) Seg Neutrophils # Seg Neutrophils # Man Lymphocytes # (Manual) 0.8 L Monocytes # (Manual) Eosinophils # (Manual) Basophils # (Manual) PT INR D-Dimer ABG pH POC ABG pCO2 POC ABG pO2 ABG pO2 ABG HCO3 ABG O2 Saturation ABG Base Excess ABG Hemoglobin ABG Oxyhemoglobin ABG Potassium ABG Glucose Oxyhemoglobin Carboxyhemoglobin Sodium Potassium Chloride 96.3 L Carbon Dioxide 40 H BUN Creatinine < 0.2 L Glucose 109 H POC Glucose 110 H Calcium Ferritin Total Bilirubin Alkaline Phosphatase Lactate Dehydrogenase Total Creatine Kinase CK-MB (CK-2) Rel Index Troponin T C-Reactive Protein Total Protein Albumin Prealbumin LDL Cholesterol Direct HDL Cholesterol Arterial Blood Glucose Arterial Blood Ionized Calcium Urine WBC (Auto) 04/23/20 04/23/20 04/23/20 04:28 04:28 04:28 WBC RBC 3.64 L Hgb 9.7 L Hct 29.4 L MCV 81 L MCH 27 L RDW 17.2 H Plt Count 527 H Lymph % (Auto) [place] % (Auto) 8.9 H Eos % (Auto) Lymph # (Auto) [place] # (Auto) Eos # (Auto) Seg Neutrophils % Seg Neuts % (Manual) Lymphocytes % (Manual) Monocytes % (Manual) Basophils % (Manual) Seg Neutrophils # Seg Neutrophils # Man Lymphocytes # (Manual) Monocytes # (Manual) Eosinophils # (Manual) Basophils # (Manual) PT INR D-Dimer ABG pH POC ABG pCO2 POC ABG pO2 ABG pO2 ABG HCO3 ABG O2 Saturation ABG Base Excess ABG Hemoglobin ABG Oxyhemoglobin ABG Potassium ABG Glucose Oxyhemoglobin Carboxyhemoglobin Sodium Potassium Chloride 96.4 L Carbon Dioxide 32 H D BUN Creatinine < 0.2 L Glucose 134 H POC Glucose Calcium Ferritin Total Bilirubin Alkaline Phosphatase Lactate Dehydrogenase Total Creatine Kinase CK-MB (CK-2) Rel Index Troponin T 0.151 H* C-Reactive Protein Total Protein Albumin Prealbumin LDL Cholesterol Direct HDL Cholesterol 29 L Arterial Blood Glucose Arterial Blood Ionized Calcium Urine WBC (Auto) 04/23/20 04/23/20 04/24/20 06:03 23:41 05:28 WBC RBC 3.56 L Hgb 9.5 L Hct 28.9 L MCV 81 L MCH 27 L RDW 17.4 H Plt Count 462 H Lymph % (Auto) [place] % (Auto) Eos % (Auto) Lymph # (Auto) [place] # (Auto) Eos # (Auto) Seg Neutrophils % Seg Neuts % (Manual) 80.0 H Lymphocytes % (Manual) Monocytes % (Manual) Basophils % (Manual) Seg Neutrophils # Seg Neutrophils # Man Lymphocytes # (Manual) Monocytes # (Manual) Eosinophils # (Manual) Basophils # (Manual) PT INR D-Dimer ABG pH POC ABG pCO2 POC ABG pO2 ABG pO2 ABG HCO3 ABG O2 Saturation ABG Base Excess ABG Hemoglobin ABG Oxyhemoglobin ABG Potassium ABG Glucose Oxyhemoglobin Carboxyhemoglobin Sodium Potassium Chloride Carbon Dioxide BUN Creatinine Glucose POC Glucose 132 H 117 H Calcium Ferritin Total Bilirubin Alkaline Phosphatase Lactate Dehydrogenase Total Creatine Kinase CK-MB (CK-2) Rel Index Troponin T C-Reactive Protein Total Protein Albumin Prealbumin LDL Cholesterol Direct HDL Cholesterol Arterial Blood Glucose Arterial Blood Ionized Calcium Urine WBC (Auto) 04/24/20 04/24/20 04/24/20 05:28 05:28 05:33 WBC RBC Hgb Hct MCV MCH RDW Plt Count Lymph % (Auto) [place] % (Auto) Eos % (Auto) Lymph # (Auto) [place] # (Auto) Eos # (Auto) Seg Neutrophils % Seg Neuts % (Manual) Lymphocytes % (Manual) Monocytes % (Manual) Basophils % (Manual) Seg Neutrophils # Seg Neutrophils # Man Lymphocytes # (Manual) Monocytes # (Manual) Eosinophils # (Manual) Basophils # (Manual) PT INR D-Dimer ABG pH POC ABG pCO2 POC ABG pO2 ABG pO2 ABG HCO3 ABG O2 Saturation ABG Base Excess ABG Hemoglobin ABG Oxyhemoglobin ABG Potassium ABG Glucose Oxyhemoglobin Carboxyhemoglobin Sodium Potassium Chloride 96.1 L Carbon Dioxide 40 H D BUN Creatinine < 0.2 L Glucose 115 H POC Glucose 109 H Calcium Ferritin Total Bilirubin Alkaline Phosphatase Lactate Dehydrogenase Total Creatine Kinase CK-MB (CK-2) Rel Index Troponin T 0.181 H* C-Reactive Protein Total Protein Albumin Prealbumin LDL Cholesterol Direct HDL Cholesterol Arterial Blood Glucose Arterial Blood Ionized Calcium Urine WBC (Auto) 04/24/20 04/24/20 04/25/20 11:17 18:23 00:12 WBC RBC Hgb Hct MCV MCH RDW Plt Count Lymph % (Auto) [place] % (Auto) Eos % (Auto) Lymph # (Auto) [place] # (Auto) Eos # (Auto) Seg Neutrophils % Seg Neuts % (Manual) Lymphocytes % (Manual) Monocytes % (Manual) Basophils % (Manual) Seg Neutrophils # Seg Neutrophils # Man Lymphocytes # (Manual) Monocytes # (Manual) Eosinophils # (Manual) Basophils # (Manual) PT INR D-Dimer ABG pH POC ABG pCO2 POC ABG pO2 ABG pO2 ABG HCO3 ABG O2 Saturation ABG Base Excess ABG Hemoglobin ABG Oxyhemoglobin ABG Potassium ABG Glucose Oxyhemoglobin Carboxyhemoglobin Sodium Potassium Chloride Carbon Dioxide BUN Creatinine Glucose POC Glucose 117 H 109 H 113 H Calcium Ferritin Total Bilirubin Alkaline Phosphatase Lactate Dehydrogenase Total Creatine Kinase CK-MB (CK-2) Rel Index Troponin T C-Reactive Protein Total Protein Albumin Prealbumin LDL Cholesterol Direct HDL Cholesterol Arterial Blood Glucose Arterial Blood Ionized Calcium Urine WBC (Auto) 04/25/20 04/25/20 04/25/20 06:34 06:34 11:28 WBC 11.7 H RBC Hgb 10.0 L Hct 31.7 L MCV 82 L MCH 26 L RDW 17.5 H Plt Count 564 H Lymph % (Auto) [place] % (Auto) Eos % (Auto) Lymph # (Auto) [place] # (Auto) Eos # (Auto) Seg Neutrophils % Seg Neuts % (Manual) 78.0 H Lymphocytes % (Manual) 10.0 L Monocytes % (Manual) 9.0 H Basophils % (Manual) Seg Neutrophils # Seg Neutrophils # Man 9.1 H Lymphocytes # (Manual) Monocytes # (Manual) 1.1 H Eosinophils # (Manual) Basophils # (Manual) PT INR D-Dimer ABG pH POC ABG pCO2 POC ABG pO2 ABG pO2 ABG HCO3 ABG O2 Saturation ABG Base Excess ABG Hemoglobin ABG Oxyhemoglobin ABG Potassium ABG Glucose Oxyhemoglobin Carboxyhemoglobin Sodium Potassium Chloride Carbon Dioxide 39 H BUN Creatinine < 0.2 L Glucose 103 H POC Glucose 112 H Calcium Ferritin Total Bilirubin Alkaline Phosphatase Lactate Dehydrogenase Total Creatine Kinase CK-MB (CK-2) Rel Index Troponin T C-Reactive Protein Total Protein Albumin Prealbumin LDL Cholesterol Direct HDL Cholesterol Arterial Blood Glucose Arterial Blood Ionized Calcium Urine WBC (Auto) 04/27/20 04/27/20 04/27/20 11:48 17:08 23:31 WBC RBC Hgb Hct MCV MCH RDW Plt Count Lymph % (Auto) [place] % (Auto) Eos % (Auto) Lymph # (Auto) [place] # (Auto) Eos # (Auto) Seg Neutrophils % Seg Neuts % (Manual) Lymphocytes % (Manual) Monocytes % (Manual) Basophils % (Manual) Seg Neutrophils # Seg Neutrophils # Man Lymphocytes # (Manual) Monocytes # (Manual) Eosinophils # (Manual) Basophils # (Manual) PT INR D-Dimer ABG pH POC ABG pCO2 POC ABG pO2 ABG pO2 ABG HCO3 ABG O2 Saturation ABG Base Excess ABG Hemoglobin ABG Oxyhemoglobin ABG Potassium ABG Glucose Oxyhemoglobin Carboxyhemoglobin Sodium Potassium Chloride Carbon Dioxide BUN Creatinine Glucose POC Glucose 124 H 118 H 122 H Calcium Ferritin Total Bilirubin Alkaline Phosphatase Lactate Dehydrogenase Total Creatine Kinase CK-MB (CK-2) Rel Index Troponin T C-Reactive Protein Total Protein Albumin Prealbumin LDL Cholesterol Direct HDL Cholesterol Arterial Blood Glucose Arterial Blood Ionized Calcium Urine WBC (Auto) 04/28/20 04/29/20 04/29/20 05:42 00:14 05:30 WBC RBC Hgb Hct MCV MCH RDW Plt Count Lymph % (Auto) [place] % (Auto) Eos % (Auto) Lymph # (Auto) [place] # (Auto) Eos # (Auto) Seg Neutrophils % Seg Neuts % (Manual) Lymphocytes % (Manual) Monocytes % (Manual) Basophils % (Manual) Seg Neutrophils # Seg Neutrophils # Man Lymphocytes # (Manual) Monocytes # (Manual) Eosinophils # (Manual) Basophils # (Manual) PT INR D-Dimer ABG pH POC ABG pCO2 POC ABG pO2 ABG pO2 ABG HCO3 ABG O2 Saturation ABG Base Excess ABG Hemoglobin ABG Oxyhemoglobin ABG Potassium ABG Glucose Oxyhemoglobin Carboxyhemoglobin Sodium Potassium Chloride Carbon Dioxide BUN Creatinine Glucose POC Glucose 122 H 115 H 123 H Calcium Ferritin Total Bilirubin Alkaline Phosphatase Lactate Dehydrogenase Total Creatine Kinase CK-MB (CK-2) Rel Index Troponin T C-Reactive Protein Total Protein Albumin Prealbumin LDL Cholesterol Direct HDL Cholesterol Arterial Blood Glucose Arterial Blood Ionized Calcium Urine WBC (Auto) 04/30/20 05/01/20 05/01/20 00:29 05:39 12:30 WBC RBC Hgb Hct MCV MCH RDW Plt Count Lymph % (Auto) [place] % (Auto) Eos % (Auto) Lymph # (Auto) [place] # (Auto) Eos # (Auto) Seg Neutrophils % Seg Neuts % (Manual) Lymphocytes % (Manual) Monocytes % (Manual) Basophils % (Manual) Seg Neutrophils # Seg Neutrophils # Man Lymphocytes # (Manual) Monocytes # (Manual) Eosinophils # (Manual) Basophils # (Manual) PT INR D-Dimer ABG pH POC ABG pCO2 POC ABG pO2 ABG pO2 ABG HCO3 ABG O2 Saturation ABG Base Excess ABG Hemoglobin ABG Oxyhemoglobin ABG Potassium ABG Glucose Oxyhemoglobin Carboxyhemoglobin Sodium Potassium Chloride Carbon Dioxide BUN Creatinine Glucose POC Glucose 106 H 109 H 108 H Calcium Ferritin Total Bilirubin Alkaline Phosphatase Lactate Dehydrogenase Total Creatine Kinase CK-MB (CK-2) Rel Index Troponin T C-Reactive Protein Total Protein Albumin Prealbumin LDL Cholesterol Direct HDL Cholesterol Arterial Blood Glucose Arterial Blood Ionized Calcium Urine WBC (Auto) 05/01/20 05/03/20 05/03/20 23:35 05:09 11:36 WBC RBC Hgb Hct MCV MCH RDW Plt Count Lymph % (Auto) [place] % (Auto) Eos % (Auto) Lymph # (Auto) [place] # (Auto) Eos # (Auto) Seg Neutrophils % Seg Neuts % (Manual) Lymphocytes % (Manual) Monocytes % (Manual) Basophils % (Manual) Seg Neutrophils # Seg Neutrophils # Man Lymphocytes # (Manual) Monocytes # (Manual) Eosinophils # (Manual) Basophils # (Manual) PT INR D-Dimer ABG pH POC ABG pCO2 POC ABG pO2 ABG pO2 ABG HCO3 ABG O2 Saturation ABG Base Excess ABG Hemoglobin ABG Oxyhemoglobin ABG Potassium ABG Glucose Oxyhemoglobin Carboxyhemoglobin Sodium Potassium Chloride Carbon Dioxide BUN Creatinine Glucose POC Glucose 116 H 117 H 116 H Calcium Ferritin Total Bilirubin Alkaline Phosphatase Lactate Dehydrogenase Total Creatine Kinase CK-MB (CK-2) Rel Index Troponin T C-Reactive Protein Total Protein Albumin Prealbumin LDL Cholesterol Direct HDL Cholesterol Arterial Blood Glucose Arterial Blood Ionized Calcium Urine WBC (Auto) 05/03/20 05/03/20 05/03/20 14:06 14:06 23:39 WBC 12.5 H RBC Hgb 10.0 L Hct 31.2 L MCV 80 L MCH 26 L RDW 17.6 H Plt Count 488 H Lymph % (Auto) [place] % (Auto) Eos % (Auto) Lymph # (Auto) [place] # (Auto) Eos # (Auto) Seg Neutrophils % Seg Neuts % (Manual) Lymphocytes % (Manual) Monocytes % (Manual) Basophils % (Manual) Seg Neutrophils # Seg Neutrophils # Man Lymphocytes # (Manual) Monocytes # (Manual) Eosinophils # (Manual) Basophils # (Manual) PT INR D-Dimer ABG pH POC ABG pCO2 POC ABG pO2 ABG pO2 ABG HCO3 ABG O2 Saturation ABG Base Excess ABG Hemoglobin ABG Oxyhemoglobin ABG Potassium ABG Glucose Oxyhemoglobin Carboxyhemoglobin Sodium Potassium Chloride 95.4 L Carbon Dioxide 40 H BUN Creatinine < 0.2 L Glucose 121 H POC Glucose 107 H Calcium Ferritin Total Bilirubin Alkaline Phosphatase Lactate Dehydrogenase Total Creatine Kinase CK-MB (CK-2) Rel Index Troponin T C-Reactive Protein Total Protein Albumin Prealbumin LDL Cholesterol Direct HDL Cholesterol Arterial Blood Glucose Arterial Blood Ionized Calcium Urine WBC (Auto) 05/04/20 05/04/20 05/04/20 11:31 16:57 23:18 WBC RBC Hgb Hct MCV MCH RDW Plt Count Lymph % (Auto) [place] % (Auto) Eos % (Auto) Lymph # (Auto) [place] # (Auto) Eos # (Auto) Seg Neutrophils % Seg Neuts % (Manual) Lymphocytes % (Manual) Monocytes % (Manual) Basophils % (Manual) Seg Neutrophils # Seg Neutrophils # Man Lymphocytes # (Manual) Monocytes # (Manual) Eosinophils # (Manual) Basophils # (Manual) PT INR D-Dimer ABG pH POC ABG pCO2 POC ABG pO2 ABG pO2 ABG HCO3 ABG O2 Saturation ABG Base Excess ABG Hemoglobin ABG Oxyhemoglobin ABG Potassium ABG Glucose Oxyhemoglobin Carboxyhemoglobin Sodium Potassium Chloride Carbon Dioxide BUN Creatinine Glucose POC Glucose 113 H 126 H 126 H Calcium Ferritin Total Bilirubin Alkaline Phosphatase Lactate Dehydrogenase Total Creatine Kinase CK-MB (CK-2) Rel Index Troponin T C-Reactive Protein Total Protein Albumin Prealbumin LDL Cholesterol Direct HDL Cholesterol Arterial Blood Glucose Arterial Blood Ionized Calcium Urine WBC (Auto) 05/05/20 05/05/20 05/05/20 05:32 11:11 23:57 WBC RBC Hgb Hct MCV MCH RDW Plt Count Lymph % (Auto) [place] % (Auto) Eos % (Auto) Lymph # (Auto) [place] # (Auto) Eos # (Auto) Seg Neutrophils % Seg Neuts % (Manual) Lymphocytes % (Manual) Monocytes % (Manual) Basophils % (Manual) Seg Neutrophils # Seg Neutrophils # Man Lymphocytes # (Manual) Monocytes # (Manual) Eosinophils # (Manual) Basophils # (Manual) PT INR D-Dimer ABG pH POC ABG pCO2 POC ABG pO2 ABG pO2 ABG HCO3 ABG O2 Saturation ABG Base Excess ABG Hemoglobin ABG Oxyhemoglobin ABG Potassium ABG Glucose Oxyhemoglobin Carboxyhemoglobin Sodium Potassium Chloride Carbon Dioxide BUN Creatinine Glucose POC Glucose 109 H 124 H 119 H Calcium Ferritin Total Bilirubin Alkaline Phosphatase Lactate Dehydrogenase Total Creatine Kinase CK-MB (CK-2) Rel Index Troponin T C-Reactive Protein Total Protein Albumin Prealbumin LDL Cholesterol Direct HDL Cholesterol Arterial Blood Glucose Arterial Blood Ionized Calcium Urine WBC (Auto) 05/06/20 05/06/20 05/07/20 05:34 23:08 04:43 WBC RBC Hgb 10.1 L Hct 31.9 L MCV 81 L MCH 25 L RDW 17.6 H Plt Count 506 H Lymph % (Auto) [place] % (Auto) 8.6 H Eos % (Auto) Lymph # (Auto) [place] # (Auto) 0.9 H Eos # (Auto) Seg Neutrophils % Seg Neuts % (Manual) Lymphocytes % (Manual) Monocytes % (Manual) Basophils % (Manual) Seg Neutrophils # Seg Neutrophils # Man Lymphocytes # (Manual) Monocytes # (Manual) Eosinophils # (Manual) Basophils # (Manual) PT INR D-Dimer ABG pH POC ABG pCO2 POC ABG pO2 ABG pO2 ABG HCO3 ABG O2 Saturation ABG Base Excess ABG Hemoglobin ABG Oxyhemoglobin ABG Potassium ABG Glucose Oxyhemoglobin Carboxyhemoglobin Sodium Potassium Chloride Carbon Dioxide BUN Creatinine Glucose POC Glucose 121 H 107 H Calcium Ferritin Total Bilirubin Alkaline Phosphatase Lactate Dehydrogenase Total Creatine Kinase CK-MB (CK-2) Rel Index Troponin T C-Reactive Protein Total Protein Albumin Prealbumin LDL Cholesterol Direct HDL Cholesterol Arterial Blood Glucose Arterial Blood Ionized Calcium Urine WBC (Auto) 05/07/20 05/07/20 05/07/20 06:18 17:13 23:29 WBC RBC Hgb Hct MCV MCH RDW Plt Count Lymph % (Auto) [place] % (Auto) Eos % (Auto) Lymph # (Auto) [place] # (Auto) Eos # (Auto) Seg Neutrophils % Seg Neuts % (Manual) Lymphocytes % (Manual) Monocytes % (Manual) Basophils % (Manual) Seg Neutrophils # Seg Neutrophils # Man Lymphocytes # (Manual) Monocytes # (Manual) Eosinophils # (Manual) Basophils # (Manual) PT INR D-Dimer ABG pH POC ABG pCO2 POC ABG pO2 ABG pO2 ABG HCO3 ABG O2 Saturation ABG Base Excess ABG Hemoglobin ABG Oxyhemoglobin ABG Potassium ABG Glucose Oxyhemoglobin Carboxyhemoglobin Sodium Potassium Chloride Carbon Dioxide BUN Creatinine Glucose POC Glucose 121 H 122 H 114 H Calcium Ferritin Total Bilirubin Alkaline Phosphatase Lactate Dehydrogenase Total Creatine Kinase CK-MB (CK-2) Rel Index Troponin T C-Reactive Protein Total Protein Albumin Prealbumin LDL Cholesterol Direct HDL Cholesterol Arterial Blood Glucose Arterial Blood Ionized Calcium Urine WBC (Auto) 05/08/20 05/08/20 05/08/20 05:20 11:57 23:42 WBC RBC Hgb Hct MCV MCH RDW Plt Count Lymph % (Auto) [place] % (Auto) Eos % (Auto) Lymph # (Auto) [place] # (Auto) Eos # (Auto) Seg Neutrophils % Seg Neuts % (Manual) Lymphocytes % (Manual) Monocytes % (Manual) Basophils % (Manual) Seg Neutrophils # Seg Neutrophils # Man Lymphocytes # (Manual) Monocytes # (Manual) Eosinophils # (Manual) Basophils # (Manual) PT INR D-Dimer ABG pH POC ABG pCO2 POC ABG pO2 ABG pO2 ABG HCO3 ABG O2 Saturation ABG Base Excess ABG Hemoglobin ABG Oxyhemoglobin ABG Potassium ABG Glucose Oxyhemoglobin Carboxyhemoglobin Sodium Potassium Chloride Carbon Dioxide BUN Creatinine Glucose POC Glucose 121 H 113 H 135 H Calcium Ferritin Total Bilirubin Alkaline Phosphatase Lactate Dehydrogenase Total Creatine Kinase CK-MB (CK-2) Rel Index Troponin T C-Reactive Protein Total Protein Albumin Prealbumin LDL Cholesterol Direct HDL Cholesterol Arterial Blood Glucose Arterial Blood Ionized Calcium Urine WBC (Auto) 05/09/20 05/09/20 05/09/20 05:31 11:11 16:06 WBC RBC Hgb Hct MCV MCH RDW Plt Count Lymph % (Auto) [place] % (Auto) Eos % (Auto) Lymph # (Auto) [place] # (Auto) Eos # (Auto) Seg Neutrophils % Seg Neuts % (Manual) Lymphocytes % (Manual) Monocytes % (Manual) Basophils % (Manual) Seg Neutrophils # Seg Neutrophils # Man Lymphocytes # (Manual) Monocytes # (Manual) Eosinophils # (Manual) Basophils # (Manual) PT INR D-Dimer ABG pH POC ABG pCO2 POC ABG pO2 ABG pO2 ABG HCO3 ABG O2 Saturation ABG Base Excess ABG Hemoglobin ABG Oxyhemoglobin ABG Potassium ABG Glucose Oxyhemoglobin Carboxyhemoglobin Sodium 136 L Potassium Chloride 97.0 L Carbon Dioxide 34 H BUN Creatinine < 0.2 L Glucose 107 H POC Glucose 66 L 127 H Calcium Ferritin Total Bilirubin Alkaline Phosphatase Lactate Dehydrogenase Total Creatine Kinase CK-MB (CK-2) Rel Index Troponin T C-Reactive Protein Total Protein Albumin Prealbumin LDL Cholesterol Direct HDL Cholesterol Arterial Blood Glucose Arterial Blood Ionized Calcium Urine WBC (Auto) 05/09/20 05/10/20 05/10/20 23:19 04:59 11:28 WBC RBC Hgb Hct MCV MCH RDW Plt Count Lymph % (Auto) [place] % (Auto) Eos % (Auto) Lymph # (Auto) [place] # (Auto) Eos # (Auto) Seg Neutrophils % Seg Neuts % (Manual) Lymphocytes % (Manual) Monocytes % (Manual) Basophils % (Manual) Seg Neutrophils # Seg Neutrophils # Man Lymphocytes # (Manual) Monocytes # (Manual) Eosinophils # (Manual) Basophils # (Manual) PT INR D-Dimer ABG pH POC ABG pCO2 POC ABG pO2 ABG pO2 ABG HCO3 ABG O2 Saturation ABG Base Excess ABG Hemoglobin ABG Oxyhemoglobin ABG Potassium ABG Glucose Oxyhemoglobin Carboxyhemoglobin Sodium Potassium Chloride Carbon Dioxide BUN Creatinine Glucose POC Glucose 108 H 126 H 124 H Calcium Ferritin Total Bilirubin Alkaline Phosphatase Lactate Dehydrogenase Total Creatine Kinase CK-MB (CK-2) Rel Index Troponin T C-Reactive Protein Total Protein Albumin Prealbumin LDL Cholesterol Direct HDL Cholesterol Arterial Blood Glucose Arterial Blood Ionized Calcium Urine WBC (Auto) 05/10/20 05/11/20 05/11/20 23:56 06:13 11:44 WBC RBC Hgb Hct MCV MCH RDW Plt Count Lymph % (Auto) [place] % (Auto) Eos % (Auto) Lymph # (Auto) [place] # (Auto) Eos # (Auto) Seg Neutrophils % Seg Neuts % (Manual) Lymphocytes % (Manual) Monocytes % (Manual) Basophils % (Manual) Seg Neutrophils # Seg Neutrophils # Man Lymphocytes # (Manual) Monocytes # (Manual) Eosinophils # (Manual) Basophils # (Manual) PT INR D-Dimer ABG pH POC ABG pCO2 POC ABG pO2 ABG pO2 ABG HCO3 ABG O2 Saturation ABG Base Excess ABG Hemoglobin ABG Oxyhemoglobin ABG Potassium ABG Glucose Oxyhemoglobin Carboxyhemoglobin Sodium Potassium Chloride Carbon Dioxide BUN Creatinine Glucose POC Glucose 113 H 124 H 125 H Calcium Ferritin Total Bilirubin Alkaline Phosphatase Lactate Dehydrogenase Total Creatine Kinase CK-MB (CK-2) Rel Index Troponin T C-Reactive Protein Total Protein Albumin Prealbumin LDL Cholesterol Direct HDL Cholesterol Arterial Blood Glucose Arterial Blood Ionized Calcium Urine WBC (Auto) 01/15/21 01/15/21 01/15/21 06:04 12:17 17:23 WBC RBC Hgb Hct MCV MCH RDW Plt Count Lymph % (Auto) [place] % (Auto) Eos % (Auto) Lymph # (Auto) [place] # (Auto) Eos # (Auto) Seg Neutrophils % Seg Neuts % (Manual) Lymphocytes % (Manual) Monocytes % (Manual) Basophils % (Manual) Seg Neutrophils # Seg Neutrophils # Man Lymphocytes # (Manual) Monocytes # (Manual) Eosinophils # (Manual) Basophils # (Manual) PT INR D-Dimer ABG pH POC ABG pCO2 POC ABG pO2 ABG pO2 ABG HCO3 ABG O2 Saturation ABG Base Excess ABG Hemoglobin ABG Oxyhemoglobin ABG Potassium ABG Glucose Oxyhemoglobin Carboxyhemoglobin Sodium Potassium Chloride Carbon Dioxide BUN Creatinine Glucose POC Glucose 135 H 136 H 133 H Calcium Ferritin Total Bilirubin Alkaline Phosphatase Lactate Dehydrogenase Total Creatine Kinase CK-MB (CK-2) Rel Index Troponin T C-Reactive Protein Total Protein Albumin Prealbumin LDL Cholesterol Direct HDL Cholesterol Arterial Blood Glucose Arterial Blood Ionized Calcium Urine WBC (Auto) 05/12/20 05/13/20 05/13/20 23:34 05:36 11:25 WBC RBC Hgb Hct MCV MCH RDW Plt Count Lymph % (Auto) [place] % (Auto) Eos % (Auto) Lymph # (Auto) [place] # (Auto) Eos # (Auto) Seg Neutrophils % Seg Neuts % (Manual) Lymphocytes % (Manual) Monocytes % (Manual) Basophils % (Manual) Seg Neutrophils # Seg Neutrophils # Man Lymphocytes # (Manual) Monocytes # (Manual) Eosinophils # (Manual) Basophils # (Manual) PT INR D-Dimer ABG pH POC ABG pCO2 POC ABG pO2 ABG pO2 ABG HCO3 ABG O2 Saturation ABG Base Excess ABG Hemoglobin ABG Oxyhemoglobin ABG Potassium ABG Glucose Oxyhemoglobin Carboxyhemoglobin Sodium Potassium Chloride Carbon Dioxide BUN Creatinine Glucose POC Glucose 141 H 131 H 148 H Calcium Ferritin Total Bilirubin Alkaline Phosphatase Lactate Dehydrogenase Total Creatine Kinase CK-MB (CK-2) Rel Index Troponin T C-Reactive Protein Total Protein Albumin Prealbumin LDL Cholesterol Direct HDL Cholesterol Arterial Blood Glucose Arterial Blood Ionized Calcium Urine WBC (Auto) 05/13/20 05/14/20 05/14/20 16:40 00:11 05:03 WBC RBC Hgb Hct MCV MCH RDW Plt Count Lymph % (Auto) [place] % (Auto) Eos % (Auto) Lymph # (Auto) [place] # (Auto) Eos # (Auto) Seg Neutrophils % Seg Neuts % (Manual) Lymphocytes % (Manual) Monocytes % (Manual) Basophils % (Manual) Seg Neutrophils # Seg Neutrophils # Man Lymphocytes # (Manual) Monocytes # (Manual) Eosinophils # (Manual) Basophils # (Manual) PT INR D-Dimer ABG pH POC ABG pCO2 POC ABG pO2 ABG pO2 ABG HCO3 ABG O2 Saturation ABG Base Excess ABG Hemoglobin ABG Oxyhemoglobin ABG Potassium ABG Glucose Oxyhemoglobin Carboxyhemoglobin Sodium Potassium Chloride Carbon Dioxide BUN Creatinine Glucose POC Glucose 118 H 128 H 129 H Calcium Ferritin Total Bilirubin Alkaline Phosphatase Lactate Dehydrogenase Total Creatine Kinase CK-MB (CK-2) Rel Index Troponin T C-Reactive Protein Total Protein Albumin Prealbumin LDL Cholesterol Direct HDL Cholesterol Arterial Blood Glucose Arterial Blood Ionized Calcium Urine WBC (Auto) 05/14/20 05/15/20 05/16/20 11:38 23:46 05:20 WBC RBC Hgb Hct MCV MCH RDW Plt Count Lymph % (Auto) [place] % (Auto) Eos % (Auto) Lymph # (Auto) [place] # (Auto) Eos # (Auto) Seg Neutrophils % Seg Neuts % (Manual) Lymphocytes % (Manual) Monocytes % (Manual) Basophils % (Manual) Seg Neutrophils # Seg Neutrophils # Man Lymphocytes # (Manual) Monocytes # (Manual) Eosinophils # (Manual) Basophils # (Manual) PT INR D-Dimer ABG pH POC ABG pCO2 POC ABG pO2 ABG pO2 ABG HCO3 ABG O2 Saturation ABG Base Excess ABG Hemoglobin ABG Oxyhemoglobin ABG Potassium ABG Glucose Oxyhemoglobin Carboxyhemoglobin Sodium Potassium Chloride Carbon Dioxide BUN Creatinine Glucose POC Glucose 134 H 107 H 122 H Calcium Ferritin Total Bilirubin Alkaline Phosphatase Lactate Dehydrogenase Total Creatine Kinase CK-MB (CK-2) Rel Index Troponin T C-Reactive Protein Total Protein Albumin Prealbumin LDL Cholesterol Direct HDL Cholesterol Arterial Blood Glucose Arterial Blood Ionized Calcium Urine WBC (Auto) 05/16/20 05/16/20 05/18/20 11:57 23:51 11:18 WBC RBC Hgb Hct MCV MCH RDW Plt Count Lymph % (Auto) [place] % (Auto) Eos % (Auto) Lymph # (Auto) [place] # (Auto) Eos # (Auto) Seg Neutrophils % Seg Neuts % (Manual) Lymphocytes % (Manual) Monocytes % (Manual) Basophils % (Manual) Seg Neutrophils # Seg Neutrophils # Man Lymphocytes # (Manual) Monocytes # (Manual) Eosinophils # (Manual) Basophils # (Manual) PT INR D-Dimer ABG pH POC ABG pCO2 POC ABG pO2 ABG pO2 ABG HCO3 ABG O2 Saturation ABG Base Excess ABG Hemoglobin ABG Oxyhemoglobin ABG Potassium ABG Glucose Oxyhemoglobin Carboxyhemoglobin Sodium Potassium Chloride Carbon Dioxide BUN Creatinine Glucose POC Glucose 108 H 111 H 115 H Calcium Ferritin Total Bilirubin Alkaline Phosphatase Lactate Dehydrogenase Total Creatine Kinase CK-MB (CK-2) Rel Index Troponin T C-Reactive Protein Total Protein Albumin Prealbumin LDL Cholesterol Direct HDL Cholesterol Arterial Blood Glucose Arterial Blood Ionized Calcium Urine WBC (Auto) 05/18/20 05/18/20 05/19/20 16:18 23:38 05:07 WBC RBC Hgb Hct MCV MCH RDW Plt Count Lymph % (Auto) [place] % (Auto) Eos % (Auto) Lymph # (Auto) [place] # (Auto) Eos # (Auto) Seg Neutrophils % Seg Neuts % (Manual) Lymphocytes % (Manual) Monocytes % (Manual) Basophils % (Manual) Seg Neutrophils # Seg Neutrophils # Man Lymphocytes # (Manual) Monocytes # (Manual) Eosinophils # (Manual) Basophils # (Manual) PT INR D-Dimer ABG pH POC ABG pCO2 POC ABG pO2 ABG pO2 ABG HCO3 ABG O2 Saturation ABG Base Excess ABG Hemoglobin ABG Oxyhemoglobin ABG Potassium ABG Glucose Oxyhemoglobin Carboxyhemoglobin Sodium Potassium Chloride Carbon Dioxide BUN Creatinine Glucose POC Glucose 110 H 128 H 121 H Calcium Ferritin Total Bilirubin Alkaline Phosphatase Lactate Dehydrogenase Total Creatine Kinase CK-MB (CK-2) Rel Index Troponin T C-Reactive Protein Total Protein Albumin Prealbumin LDL Cholesterol Direct HDL Cholesterol Arterial Blood Glucose Arterial Blood Ionized Calcium Urine WBC (Auto) 05/19/20 05/19/20 05/19/20 11:36 16:49 23:17 WBC RBC Hgb Hct MCV MCH RDW Plt Count Lymph % (Auto) [place] % (Auto) Eos % (Auto) Lymph # (Auto) [place] # (Auto) Eos # (Auto) Seg Neutrophils % Seg Neuts % (Manual) Lymphocytes % (Manual) Monocytes % (Manual) Basophils % (Manual) Seg Neutrophils # Seg Neutrophils # Man Lymphocytes # (Manual) Monocytes # (Manual) Eosinophils # (Manual) Basophils # (Manual) PT INR D-Dimer ABG pH POC ABG pCO2 POC ABG pO2 ABG pO2 ABG HCO3 ABG O2 Saturation ABG Base Excess ABG Hemoglobin ABG Oxyhemoglobin ABG Potassium ABG Glucose Oxyhemoglobin Carboxyhemoglobin Sodium Potassium Chloride Carbon Dioxide BUN Creatinine Glucose POC Glucose 120 H 110 H 122 H Calcium Ferritin Total Bilirubin Alkaline Phosphatase Lactate Dehydrogenase Total Creatine Kinase CK-MB (CK-2) Rel Index Troponin T C-Reactive Protein Total Protein Albumin Prealbumin LDL Cholesterol Direct HDL Cholesterol Arterial Blood Glucose Arterial Blood Ionized Calcium Urine WBC (Auto) 05/20/20 05/20/20 05/21/20 05:17 23:55 04:18 WBC RBC Hgb 11.2 L Hct 35.4 L MCV 81 L MCH 25 L RDW 18.2 H Plt Count 458 H Lymph % (Auto) [place] % (Auto) 8.8 H Eos % (Auto) 7.2 H Lymph # (Auto) [place] # (Auto) Eos # (Auto) 0.6 H Seg Neutrophils % Seg Neuts % (Manual) Lymphocytes % (Manual) Monocytes % (Manual) Basophils % (Manual) Seg Neutrophils # Seg Neutrophils # Man Lymphocytes # (Manual) Monocytes # (Manual) Eosinophils # (Manual) Basophils # (Manual) PT INR D-Dimer ABG pH POC ABG pCO2 POC ABG pO2 ABG pO2 ABG HCO3 ABG O2 Saturation ABG Base Excess ABG Hemoglobin ABG Oxyhemoglobin ABG Potassium ABG Glucose Oxyhemoglobin Carboxyhemoglobin Sodium Potassium Chloride Carbon Dioxide BUN Creatinine Glucose POC Glucose 133 H 128 H Calcium Ferritin Total Bilirubin Alkaline Phosphatase Lactate Dehydrogenase Total Creatine Kinase CK-MB (CK-2) Rel Index Troponin T C-Reactive Protein Total Protein Albumin Prealbumin LDL Cholesterol Direct HDL Cholesterol Arterial Blood Glucose Arterial Blood Ionized Calcium Urine WBC (Auto) 05/21/20 05/21/20 05/21/20 04:18 05:02 23:53 WBC RBC Hgb Hct MCV MCH RDW Plt Count Lymph % (Auto) [place] % (Auto) Eos % (Auto) Lymph # (Auto) [place] # (Auto) Eos # (Auto) Seg Neutrophils % Seg Neuts % (Manual) Lymphocytes % (Manual) Monocytes % (Manual) Basophils % (Manual) Seg Neutrophils # Seg Neutrophils # Man Lymphocytes # (Manual) Monocytes # (Manual) Eosinophils # (Manual) Basophils # (Manual) PT INR D-Dimer ABG pH POC ABG pCO2 POC ABG pO2 ABG pO2 ABG HCO3 ABG O2 Saturation ABG Base Excess ABG Hemoglobin ABG Oxyhemoglobin ABG Potassium ABG Glucose Oxyhemoglobin Carboxyhemoglobin Sodium Potassium Chloride 97.2 L Carbon Dioxide 35 H BUN Creatinine < 0.2 L Glucose 128 H POC Glucose 125 H 114 H Calcium Ferritin Total Bilirubin Alkaline Phosphatase Lactate Dehydrogenase Total Creatine Kinase CK-MB (CK-2) Rel Index Troponin T C-Reactive Protein Total Protein Albumin Prealbumin LDL Cholesterol Direct HDL Cholesterol Arterial Blood Glucose Arterial Blood Ionized Calcium Urine WBC (Auto) 05/22/20 05/22/20 05/23/20 05:21 11:35 00:06 WBC RBC Hgb Hct MCV MCH RDW Plt Count Lymph % (Auto) [place] % (Auto) Eos % (Auto) Lymph # (Auto) [place] # (Auto) Eos # (Auto) Seg Neutrophils % Seg Neuts % (Manual) Lymphocytes % (Manual) Monocytes % (Manual) Basophils % (Manual) Seg Neutrophils # Seg Neutrophils # Man Lymphocytes # (Manual) Monocytes # (Manual) Eosinophils # (Manual) Basophils # (Manual) PT INR D-Dimer ABG pH POC ABG pCO2 POC ABG pO2 ABG pO2 ABG HCO3 ABG O2 Saturation ABG Base Excess ABG Hemoglobin ABG Oxyhemoglobin ABG Potassium ABG Glucose Oxyhemoglobin Carboxyhemoglobin Sodium Potassium Chloride Carbon Dioxide BUN Creatinine Glucose POC Glucose 127 H 114 H 115 H Calcium Ferritin Total Bilirubin Alkaline Phosphatase Lactate Dehydrogenase Total Creatine Kinase CK-MB (CK-2) Rel Index Troponin T C-Reactive Protein Total Protein Albumin Prealbumin LDL Cholesterol Direct HDL Cholesterol Arterial Blood Glucose Arterial Blood Ionized Calcium Urine WBC (Auto) 05/23/20 05/23/20 05/23/20 05:44 12:07 17:59 WBC RBC Hgb Hct MCV MCH RDW Plt Count Lymph % (Auto) [place] % (Auto) Eos % (Auto) Lymph # (Auto) [place] # (Auto) Eos # (Auto) Seg Neutrophils % Seg Neuts % (Manual) Lymphocytes % (Manual) Monocytes % (Manual) Basophils % (Manual) Seg Neutrophils # Seg Neutrophils # Man Lymphocytes # (Manual) Monocytes # (Manual) Eosinophils # (Manual) Basophils # (Manual) PT INR D-Dimer ABG pH POC ABG pCO2 POC ABG pO2 ABG pO2 ABG HCO3 ABG O2 Saturation ABG Base Excess ABG Hemoglobin ABG Oxyhemoglobin ABG Potassium ABG Glucose Oxyhemoglobin Carboxyhemoglobin Sodium Potassium Chloride Carbon Dioxide BUN Creatinine Glucose POC Glucose 110 H 128 H 125 H Calcium Ferritin Total Bilirubin Alkaline Phosphatase Lactate Dehydrogenase Total Creatine Kinase CK-MB (CK-2) Rel Index Troponin T C-Reactive Protein Total Protein Albumin Prealbumin LDL Cholesterol Direct HDL Cholesterol Arterial Blood Glucose Arterial Blood Ionized Calcium Urine WBC (Auto) 05/24/20 05/24/20 05/25/20 05:09 23:05 05:33 WBC RBC Hgb Hct MCV MCH RDW Plt Count Lymph % (Auto) [place] % (Auto) Eos % (Auto) Lymph # (Auto) [place] # (Auto) Eos # (Auto) Seg Neutrophils % Seg Neuts % (Manual) Lymphocytes % (Manual) Monocytes % (Manual) Basophils % (Manual) Seg Neutrophils # Seg Neutrophils # Man Lymphocytes # (Manual) Monocytes # (Manual) Eosinophils # (Manual) Basophils # (Manual) PT INR D-Dimer ABG pH POC ABG pCO2 POC ABG pO2 ABG pO2 ABG HCO3 ABG O2 Saturation ABG Base Excess ABG Hemoglobin ABG Oxyhemoglobin ABG Potassium ABG Glucose Oxyhemoglobin Carboxyhemoglobin Sodium Potassium Chloride Carbon Dioxide BUN Creatinine Glucose POC Glucose 115 H 113 H 118 H Calcium Ferritin Total Bilirubin Alkaline Phosphatase Lactate Dehydrogenase Total Creatine Kinase CK-MB (CK-2) Rel Index Troponin T C-Reactive Protein Total Protein Albumin Prealbumin LDL Cholesterol Direct HDL Cholesterol Arterial Blood Glucose Arterial Blood Ionized Calcium Urine WBC (Auto) 05/26/20 05/26/20 05/26/20 05:28 05:28 06:12 WBC 11.7 H RBC Hgb 10.4 L Hct 32.8 L MCV 79 L MCH 25 L RDW 18.2 H Plt Count Lymph % (Auto) [place] % (Auto) 7.5 H Eos % (Auto) Lymph # (Auto) [place] # (Auto) 0.9 H Eos # (Auto) Seg Neutrophils % 74.9 H Seg Neuts % (Manual) Lymphocytes % (Manual) Monocytes % (Manual) Basophils % (Manual) Seg Neutrophils # 8.8 H Seg Neutrophils # Man Lymphocytes # (Manual) Monocytes # (Manual) Eosinophils # (Manual) Basophils # (Manual) PT INR D-Dimer ABG pH POC ABG pCO2 POC ABG pO2 ABG pO2 ABG HCO3 ABG O2 Saturation ABG Base Excess ABG Hemoglobin ABG Oxyhemoglobin ABG Potassium ABG Glucose Oxyhemoglobin Carboxyhemoglobin Sodium Potassium Chloride 95.0 L Carbon Dioxide 39 H BUN Creatinine < 0.2 L Glucose 111 H POC Glucose 107 H Calcium Ferritin Total Bilirubin Alkaline Phosphatase Lactate Dehydrogenase Total Creatine Kinase CK-MB (CK-2) Rel Index Troponin T C-Reactive Protein Total Protein Albumin Prealbumin LDL Cholesterol Direct HDL Cholesterol Arterial Blood Glucose Arterial Blood Ionized Calcium Urine WBC (Auto) 05/26/20 05/27/20 05/27/20 12:00 01:08 05:32 WBC RBC Hgb Hct MCV MCH RDW Plt Count Lymph % (Auto) [place] % (Auto) Eos % (Auto) Lymph # (Auto) [place] # (Auto) Eos # (Auto) Seg Neutrophils % Seg Neuts % (Manual) Lymphocytes % (Manual) Monocytes % (Manual) Basophils % (Manual) Seg Neutrophils # Seg Neutrophils # Man Lymphocytes # (Manual) Monocytes # (Manual) Eosinophils # (Manual) Basophils # (Manual) PT INR D-Dimer ABG pH POC ABG pCO2 POC ABG pO2 ABG pO2 ABG HCO3 ABG O2 Saturation ABG Base Excess ABG Hemoglobin ABG Oxyhemoglobin ABG Potassium ABG Glucose Oxyhemoglobin Carboxyhemoglobin Sodium Potassium Chloride Carbon Dioxide BUN Creatinine Glucose POC Glucose 135 H 121 H 127 H Calcium Ferritin Total Bilirubin Alkaline Phosphatase Lactate Dehydrogenase Total Creatine Kinase CK-MB (CK-2) Rel Index Troponin T C-Reactive Protein Total Protein Albumin Prealbumin LDL Cholesterol Direct HDL Cholesterol Arterial Blood Glucose Arterial Blood Ionized Calcium Urine WBC (Auto) 05/27/20 05/27/20 05/27/20 11:53 17:28 23:33 WBC RBC Hgb Hct MCV MCH RDW Plt Count Lymph % (Auto) [place] % (Auto) Eos % (Auto) Lymph # (Auto) [place] # (Auto) Eos # (Auto) Seg Neutrophils % Seg Neuts % (Manual) Lymphocytes % (Manual) Monocytes % (Manual) Basophils % (Manual) Seg Neutrophils # Seg Neutrophils # Man Lymphocytes # (Manual) Monocytes # (Manual) Eosinophils # (Manual) Basophils # (Manual) PT INR D-Dimer ABG pH POC ABG pCO2 POC ABG pO2 ABG pO2 ABG HCO3 ABG O2 Saturation ABG Base Excess ABG Hemoglobin ABG Oxyhemoglobin ABG Potassium ABG Glucose Oxyhemoglobin Carboxyhemoglobin Sodium Potassium Chloride Carbon Dioxide BUN Creatinine Glucose POC Glucose 135 H 118 H 121 H Calcium Ferritin Total Bilirubin Alkaline Phosphatase Lactate Dehydrogenase Total Creatine Kinase CK-MB (CK-2) Rel Index Troponin T C-Reactive Protein Total Protein Albumin Prealbumin LDL Cholesterol Direct HDL Cholesterol Arterial Blood Glucose Arterial Blood Ionized Calcium Urine WBC (Auto) 05/28/20 05/28/20 05:13 11:45 WBC RBC Hgb Hct MCV MCH RDW Plt Count Lymph % (Auto) [place] % (Auto) Eos % (Auto) Lymph # (Auto) [place] # (Auto) Eos # (Auto) Seg Neutrophils % Seg Neuts % (Manual) Lymphocytes % (Manual) Monocytes % (Manual) Basophils % (Manual) Seg Neutrophils # Seg Neutrophils # Man Lymphocytes # (Manual) Monocytes # (Manual) Eosinophils # (Manual) Basophils # (Manual) PT INR D-Dimer ABG pH POC ABG pCO2 POC ABG pO2 ABG pO2 ABG HCO3 ABG O2 Saturation ABG Base Excess ABG Hemoglobin ABG Oxyhemoglobin ABG Potassium ABG Glucose Oxyhemoglobin Carboxyhemoglobin Sodium Potassium Chloride Carbon Dioxide BUN Creatinine Glucose POC Glucose 116 H 115 H Calcium Ferritin Total Bilirubin Alkaline Phosphatase Lactate Dehydrogenase Total Creatine Kinase CK-MB (CK-2) Rel Index Troponin T C-Reactive Protein Total Protein Albumin Prealbumin LDL Cholesterol Direct HDL Cholesterol Arterial Blood Glucose Arterial Blood Ionized Calcium Urine WBC (Auto) Allied health notes reviewed: RT
--- NOTE | 2020-05-29 09:40 | Discharge Summary ---
Providers - Providers Date of Admission: 02/24/20 10:37 Date of discharge: 05/29/20 Attending physician: JEANNIE CAMEJO 02/24/20 14:47 Consult to Physician [CONS] Stat Comment: Saw patient @ 13:45- L[facility] Consulting Provider: BALJINDER BUSH Physician Instructions: Reason For Exam: resp failure 02/24/20 15:18 Consult to Physician [CONS] Routine Comment: Consulting Provider: LINDSEY HERNANDEZ Physician Instructions: Reason For Exam: PUI/high suspfor Covid/carmela pneumonia/high markers 02/26/20 02:34 Consult to Wound/ET Nurse [CONS] Urgent Reason For Exam: wound eval 02/26/20 11:17 Consult to Dietitian/Nutrition [CONS] Routine Physician Instructions: Assess nutrtn needs, initiate, modify, manage TF Reason For Exam: Reason for Consult: Write/Manage Tube Feeding Reason for Consult: Write/Manage Tube Feeding 02/28/20 09:56 Consult to Physician [CONS] Routine Comment: Consulting Provider: LIAN TANG Physician Instructions: Reason For Exam: ALS 02/28/20 15:21 Consult to Physician [CONS] Routine Comment: spoke to dr. perez/ angela Consulting Provider: JULISSA PEREZ Physician Instructions: evaluate left buttock wound for debridement Reason For Exam: left buttock pressure ulcer 03/06/20 08:00 Consult to Physician [CONS] Routine Comment: Consulting Provider: DESIRE REEVES Physician Instructions: Reason For Exam: Tracheostomy placement 03/09/20 17:11 Consult to Physician [CONS] Urgent Comment: Consulting Provider: STEPHANIE PALMA Physician Instructions: Reason For Exam: Bladder distension; unable to pass straight cath 03/09/20 17:40 Consult to PICC Line RN [CONS] Urgent Reason For Exam: Vasopressors Type Line:: PICC 03/15/20 08:25 Consult to Physician [CONS] Routine Comment: called answ. slater/ angela Consulting Provider: JUDITH RILEY Physician Instructions: Reason For Exam: PEG placement 03/20/20 15:50 Consult to Dietitian/Nutrition [CONS] Routine Physician Instructions: Assess nutrtn needs, initiate, modify, manage TF Reason For Exam: Reason for Consult: Write/Manage Tube Feeding Reason for Consult: Write/Manage Tube Feeding 03/30/20 15:39 Consult to Wound/ET Nurse [CONS] Urgent Reason For Exam: re-evaluation of wound 04/07/20 11:24 Physical Therapy Evaluation and Treat [CONS] Routine Comment: Reason For Exam: ALS 04/07/20 11:25 Occupational Therapy Evaluate and Treat [CONS] Routine Comment: Reason For Exam: ALS 04/22/20 11:37 Physical Therapy Evaluation and Treat [CONS] Routine Comment: Pt unable to move due to ALS Reason For Exam: ALS 05/15/20 04:53 Consult to Wound/ET Nurse [CONS] Routine Reason For Exam: re-eval of wounds- wounds are now beefy red. Primary care physician: CHE LEON Hospitalization Reason for admission: Respiratory failure Condition: Stable Pertinent studies: CT scan chest negative for pulmonary embolism however multifocal pneumonia left lower lobe #2 lower extremity Doppler negative for DVT #[address] ruled out bladder obstruction obstructive uropathy #4 echocardiogram showed ejection fraction 50 to 55%. Procedures: Consultations infectious disease for sepsis for pneumonia neurology for ALS GI for PEG tube placement. Urology for urinary Drake placed for urinary retention. Hospital course: Patient is a 59-year-old male with a significant history for ALS presented to the emergency department with worsening shortness of breath. Patient was on a home trilogy machine continuous. Upon presentation EMS arrived patient was satting in the 80s. Patient was placed on CPAP machine and felt. Patient then was admitted to the ICU with a diagnosis of acute hypoxic respiratory failure and placed on BiPAP. Patient initially tolerated BiPAP and required intubation secondary to persistent hypoxemia. Patient was intubated on 02/26/2020. Patient also had work-up for pulmonary embolism deep vein thrombosis and COVID- 19 pneumonia and were all unremarkable. Patient subsequently had blood cultures that were negative Covid negative and patient was treated with antibiotics for community-acquired pneumonia. Patient treated with Rocephin and azithromycin and defervesced well. Patient hypoxia was difficult to treat and cannot wean and therefore had tracheostomy placed. Hospital course was complicated by asystole following V. fib. This all happened while patient was on vent. Cardiology was consulted and patient was diagnosed with non-STEMI type II in the setting of respiratory failure. Throughout this time patient had a guarded prognosis. The family was very involved including Sister Felisa Eli who despite guarded prognosis wanted everything done in for patient to be treated aggressively. Patient tolerated assist-control ventilator with a rate of 18 tidal volume of 400 PEEP of 6 and continue to improve. On 03/07/2020 patient had tracheostomy placed. Patient also had dysphagia and subsequently had PEG tube placed as well. After prolonged hospital stay patient and family was given opportunity to go to LTAC versus intermediate facility. Patient himself stated he wanted to go home. After prolonged education course with family and patient the choice was made for patient to go home. Patient was to go home with caregiver. She was educated on vent settings how to use the vent and what to look out for in case of emergencies. Caregiver understands patient's overall prognosis with advanced ALS. Patient and caregiver once everything done aggressive measures and to perform CPR if necessary. Patient caregiver and family was brought in and the vent that they will be using at home was brought into the hospital to further educate family how to use vent. Problem list -Acute hypoxic hypercapnic respiratory failure; Intubated on mechanical ventilation. Etiology secondary to sepsis, ALS, multifocal pneumonia (Covid negative). S/p trach placement 03/07/20 --Status post cardiac arrest on 02/25, cardiac hernandez now stable --Dysphagia, status post PEG placement for tube feeding --ALS; Chronic Continue to provide supportive care --Elevated D-dimers; CTA chest, lower extremity venous Doppler both are negative Lovenox for DVT prophylaxis --Bilateral pneumonia; probably community-acquired Completed treatment. Pneumonia has resolved. ID recommendations appreciated --Sepsis secondary to pneumonia s/p empiric antibiotic --Elevated troponin; Serial cardiac enzymes, serial EKGs Echocardiogram, cardiology consult if needed --Hypernatremia Trend sodium Free water via feeding tube --Abdominal distention due to bladder outlet obstruction, resolved CT abdomen showed bladder outlet obstruction, urology consulted s/p drake placement by urology on 03/09 --Hypotension possibly from septic shock and bladder outlet obstruction improved following placing drake Daily series of events . CTA of the chest reveals no PE but does illustrate the bilateral pneumonia. Doppler ultrasound also negative for DVT. Blood cultures are pending. Await COVID-19 testing. Patient currently requiring BiPAP IPAP 24/EPAP 6 with FiO2 of 25%. Continue O2 and BiPAP as clinically indicated. ID and pulmonary consulted. 02/26/2020. Blood cultures are negative x48 hours and Covid testing negative as well. Continue antibiotics per ID recommendations for community-acquired bilateral pneumonia. Cardiology consultation for elevated troponin. Check echocardiogram. 02/27/2020. Events of yesterday noted with asystole following V. fib arrest. Patient currently on AC mode rate 20, tidal volume 400, FiO2 50% and a PEEP of 6. Follow-up echocardiogram for elevated troponin. Cardiology suspects NSTEMI Type 2 in the setting of acute resp failure. Chest CTA and BLE Dopplers neg. we will discontinue Decadron given the Covid PCR is negative. 02/28/2020. I spoke with the sister Felisa Eli who is the power of cruller maker regarding advanced directives and she instructed me that she would like to continue with aggressive care at this time. I informed her of the guarded prognosis and high mortality/morbidity and she voiced understanding. Patient currently with AC mode ventilation rate 18, tidal volume 400, FiO2 40% and a PEEP of 6. Continue antibiotics for pneumonia. ID previously consulted. Also consult neurology with regards to ALS. 02/29/2020; patient is intubated and on CPAP patient is alert and oriented. Patient has ALS. Dr. Álvarez spoke with his sister and she wants aggressive care. Continue antibiotics for pneumonia. Neurology consulted for ALS. Prognosis poor 03/01/2020; patient is intubated and on CPAP, patient is alert and oriented. I spoke with his 2 sisters about the management plan. 03/02/2020; patient is intubated and on CPAP. Patient was alert and oriented. I spoke with Dr. mohr and he thinks patient may need mechanical ventilation, likely his disease progressed. Dr. Perez did debridement this morning. 03/03/2020; patient is intubated and on CPAP, patient was on trilogy and BiPAP at home. Patient has ALS. on spontaneous breathing trial. Patient is alert and oriented but quadriplegic. Patient has severe bilateral pneumonia and is on cefepime and Vanco, ID is following. Patient has sacral decubitus ulcer and debridement was done by Dr. Perez and there is no osteomyelitis. 03/05. Patient still on broad-spectrum antibiotics. Status post sacral decubitus ulcer debridements-no osteomyelitis. Patient is on AC 25/400/30% PEEP 5. No blood gas results today. 03/06. Plan for tracheostomy by surgery. Still remains intubated. Labs reviewed-sodium 150. Started on free water 200 every 8hr. trend sodium. 03/07: s/p trach placement today, patient placed back on mechanical ventilation with trach. Plan to resume tube feeding with NG tube. Continue to monitor vitals, monitor BMP. 03/08: Patient noted to have distended abdomen with low urinary output. Obtain bladder scan rule out urine retention, UA and urine culture, continue to follow clinically. 03/09: Patient noted to have low blood pressure with SBP as low as 70s. Ordered for 500 mils normal saline bolus. CT abdomen showed bladder outlet obstruction, urology consulted. 03/10: placed on drake by urology o/n, improved urine outpt. cont to monitor BMP. resuded TF - cont free water with TF. wean off from vent as tolerated. 03/11: Vitals stable. cont TF, wean off from vent as tolerated. start on 1/2 NS for hypernatremia - follow BMP 03/12: wean off vent as tolerated, plan for speech eval, cont Tf for now, cont iv fluid 03/13: unable to wean off from vent, unable to do speech therapy eval. will need PEG tube, cont supportive care for now, cont NG tube feeding 03/14: consulted GI for PEg placemnet, cont supportive care. remains on vent at night 03/15: Discussed with GI, plan for PEG tube placement possibly tomorrow. Continue supportive care and wean off from vent as tolerated. Hold Lovenox dose tonight. 03/16: family didnot consent for PEG placement yesterday. I spoke with the daughter today and she is now agreeable for PEG tube. I explained the necessity of the procedure with RN to the patient also and he nodded started on tube feeding, for the procedure. will cont supportive care. planned for PEG tube placement tomorrow. 03/17: s/p PEG placement today, patient tolerated well, cont supportive care 03/18: Started on tube feeding with new PEG tube, continue to wean off vent as tolerated 03/19: cont to monitor with supportive care, wean off vent as tolerated 03/20: Continue to wean off vent as tolerated -but failing weaning trial. Still requiring vent support at night. Currently on PEG tube for tube feed. 03/21. Pt with PSV trials with FiO@ 30%, PEEP 6, PS 10. Currently on PEG tube for tube feed. 03/22/2020. Continue PSV trials per pulmonary. Continue bronchodilators. Patient tolerating tube feedings. Continue Robinul for secretion control. 03/23/2020. Continue PSV trials per pulmonary. Continue bronchodilators. Continue Scopolamine and Robinul for secretion control. Trach care/airway management. Mobility protocols for pressure ulcer prophylaxis. LTAC evaluation per case management 03/24/2020. Continue PSV trials with current settings pressure support 10, PEEP 6 and FiO2 30%. Continue bronchodilators/nebulizer. Continue Scopolamine and Robinul for secretion control. Trach care/airway management. Mobility protocols for pressure ulcer prophylaxis. LTAC evaluation per case management 03/25/2020. Pulmonary to proceed with T-piece trials today. Continue bronchodilators/nebulizer. Continue Scopolamine and Robinul for secretion control. Trach care/airway management. Mobility protocols for pressure ulcer prophylaxis. 03/26/2020. Patient currently with PSV 10/6 at FiO2 of 30%. Continue weaning and T-piece trials per protocol. Continue bronchodilators/nebulizer. Continue Scopolamine and Robinul for secretion control. Trach care/airway management. Mobility protocols for pressure ulcer prophylaxis. Continue tube feeding with aspiration precautions. 03/27/2020. Patient currently with PSV 10/6 at FiO2 of 30%. Continue weaning and T-piece trials per protocol. Continue bronchodilators/nebulizer. Continue Scopolamine and Robinul for secretion control. Trach care/airway management. Mobility protocols for pressure ulcer prophylaxis. Continue tube feeding with aspiration precautions. 03/28. Had temp 100.7F. He has been off antibiotics. Will send blood culture, ua, urine culture and chest xray. Had chest pain overnight and trop was elevated as well. Cardiology to evaluate 03/29. Has back pain due to position. He mentions his chest pain is positional. Has no other complaints. Still on mechanical ventilation 03/30. No chest pain today. Labs reviewed. Discussed chest pain with cardiology and team advised no further work up at this time. Can follow up with cardiology in the office after hospitalization 03/31. Lidocaine patch for lower back pain. 04/01. Discharge planning underway. MESERET notes reviewed. Discussed with daughter 04/02 - . CM trying to arrange discharge. Continue PSV trials. Discussed with patients significant other 04/04/2020; CM is working for discharge arrangement. Continue PSV trials. 04/05/2020; patient was seen and evaluated this morning and no change from baseline. Continue with PSV trials. Follow with procurement consultant for discharge planning. 04/06/2020;patient was seen and evaluated this morning and no change from baseline. Continue with PSV trials. Follow with procurement consultant for discharge planning. 04/07/2020; patient was seen and evaluated this morning and no change from baseline. Continue with PSV trials. Follow with procurement consultant for discharge planning. 04/08/2020; patient is vent dependent. Discharge is per procurement consultant. 04/09/2020 patient is vent dependent, possible LTAC placement 04/10/2020; tracheostomy on vent, vent dependent pending LTAC placement 04/11/2020; clinically no change, tracheostomy on ventilatory support, wean as tolerated, awaiting placement 04/12/2020; remains on ventilatory support, unable to wean, patient wants to see a speech therapist for sound box However we cannot try that as long as he is on ventilatory support, once he is weaned off vent We will consult speech therapist, plan of care reviewed with the patient and his nurse 04/14/2020; clinically no change, on ventilatory support, complains of constipation, milk of magnesia Closely monitor the patient and adjust the management as needed 04/15/2020; patient has some oral thrush on the tongue, will give Magic mouthwash/nystatin swish and spit Wean off vent as tolerated 04/16 patient is alert and oriented, unable to comprehend what he is trying to tell but appears to complain of some pain, no acute events overnight, all interdisciplinary notes reviewed. Waiting for LTAC versus intermediate facility placement 04/17/2020. Continue supportive care with mechanical ventilation. Patient currently on AC mode rate 10, tidal volume 400 FiO2 30% with a PEEP of 6. Discharge planning per case management. 04/18/2020. Patient remains on mechanical ventilation AC mode rate 10, tidal volume 400, FiO2 30% and PEEP of 6. Continue spontaneous breathing trials as tolerated. Previously, patient was considered for discharge home with skilled staff providing care for 12 hours 7 days/week. Continue discussed with case management discharge planning. 04/19/20. Patient remains on mechanical ventilation AC mode rate 10, tidal volume 400, FiO2 30% and PEEP of 6. Continue spontaneous breathing trials as tolerated. 04/20/2020. Patient remains on mechanical ventilation AC mode rate 10, tidal volume 400, FiO2 30% and PEEP of 6. Continue spontaneous breathing trials as tolerated. 04/21/2020. Patient remains on mechanical ventilation AC mode rate 10, tidal volume 400, FiO2 30% and PEEP of 6. Continue tracheostomy care, secretion control and airway management. Continue spontaneous breathing trials as tolerated. 04/22/2020. Patient remains on mechanical ventilation AC mode rate 10, tidal volume 400, FiO2 30% and PEEP of 6. Continue tracheostomy care, secretion control and airway management. Continue spontaneous breathing trials as tolerated. 04/23/2020. Patient on mechanical ventilation AC mode rate 18, tidal volume 450, FiO2 30% and PEEP of 6. Continue tracheostomy care, secretion control and airway management. Continue spontaneous breathing trials as tolerated. Continue Robinul and scopolamine for secretions. Continue baclofen. 04/24/2020. Patient remains on AC mode ventilation rate 10, tidal volume 400, FiO2 30% and PEEP of 6. Continue tracheostomy care, secretion control and airway management. Continue spontaneous breathing trials as tolerated. Continue Robinul and scopolamine for secretions. Continue baclofen. Continue Xanax for anxiety and Ambien for sleep. Await case management follow-up with regards to discharge planning. 04/25/2020. Patient remains on AC mode ventilation rate 10, tidal volume 400, FiO2 30% and PEEP of 6. Continue tracheostomy care, secretion control and airway management. Continue spontaneous breathing trials as tolerated. Continue Robinul and scopolamine for secretions. Continue baclofen. Continue Xanax for anxiety and Ambien for sleep. Await case management follow-up with regards to discharge planning. 04/26. Patient remains on AC mode ventilation rate 10, tidal volume 400, FiO2 30% and PEEP of 6. Continue tracheostomy care, secretion control and airway management. Continue spontaneous breathing trials as tolerated. Continue Robinul and scopolamine for secretions. Continue baclofen. Continue Xanax for anxiety and Ambien for sleep. Await case management follow-up with regards to discharge planning. 04/27. Patient remains on AC mode ventilation rate 10, tidal volume 400, FiO2 30% and PEEP of 6. Continue tracheostomy care, secretion control and airway management. Continue spontaneous breathing trials as tolerated. Continue Robinul and scopolamine for secretions. Continue baclofen. Continue Xanax for anxiety and Ambien for sleep. Await case management follow-up with regards to discharge planning. 04/28/20 no acute events overnight, remains vent dependent, cardiology and pulmonary notes reviewed 04/29 remains intubated via tracheostomy, no acute events 04/30 no acute events overnight, cardiology note reviewed, remains vent dependent, discharge planning per case management 05/01 stable. cardiology and pulmonary notes reviewed. D/C acu-checks 05/02 - todate: Clinically stable, CM working on placement. Continue supportive care. 05/29: Patient finally going home in hemodynamically stable condition however chronically ill. Patient to receive home health OT. Patient has extensive bowel regime. Including Colace milk of magnesia as other stool softeners. Patient has extensive meds for secretions glycopyrrolate Scopolamine patch. As well as medications for blood pressure metoprolol and Catapres. Also has meds for neuropathy and spasms baclofen and Lyrica. Patient also given medications oxycodone for severe pain and Ultram for moderate pain. Disposition: DC-30 STILL A PATIENT Core Measure Documentation - Palliative Care Palliative Care/ Comfort Measures: Not Applicable - Core Measures Any of the following diagnoses?: none Exam - Constitutional Vitals: Temp Pulse Resp BP Pulse Ox 97.7 F 124 H 22 130/83 98 05/29/20 08:30 05/29/20 08:47 05/29/20 08:48 05/29/20 08:47 05/29/20 08:00 General appearance: Present: no acute distress, other (Patient is without secretions at trach site.) - EENT ENT: other (Trach site looks well.) - Respiratory Respiratory effort: normal Respiratory: right: other (Good air entry although limited respiratory effort patient on ) - Cardiovascular Rhythm: regular Heart Sounds: Present: S1 & S2. Absent: rub, click - Extremities Extremity abnormal: other (Patient has 0 out of 5 weakness bilateral lower extremities. Also 1 out of 5 weakness bilateral upper extremities.) - Abdominal General gastrointestinal: Present: soft, non-tender, non-distended, normal bowel sounds, other (Positive bowel sounds functioning PEG tube.) - Musculoskeletal Musculoskeletal: other (Paralysis as described by advanced ALS and extremities.) - Neurologic Neurologic: other (Advanced ALS) Plan Activity: other (Bedbound.) Weight Bearing Status: Non-Weight Bearing Diet: per dietitian instruction, other (Advance PEG tube feedings as per dietitian instructions.) Follow up with: CHE LEON MD [Primary Care Provider] - 7 Days Prescriptions: Zolpidem [Ambien] 10 mg PO QHS PRN #30 tablet PRN Reason: Sleep cloNIDine-TTS PATCH [Catapres-Tts 0.2mg Patch] 0.2 mg TD Th #20 patch Docusate Sodium [Colace ORAL LIQ] 100 mg FEEDTUBE BID #7 oral.liqd bisacodyL [Dulcolax suppos] 10 mg LA QDAY PRN #10 supp.rect PRN Reason: Bowel Movement Enoxaparin 40 mg SUB-Q QDAY@2200 #7 syringe Tamsulosin [Flomax] 0.4 mg PO QDAY #30 capsule Aspirin EC [Halfprin EC] 81 mg PO QDAY #30 tablet Baclofen [Lioresal] 10 mg PO BID #60 tablet Metoprolol [Lopressor TAB] 12.5 mg PO BID #30 tablet polyethylene glycoL 3350 [Miralax 3350] 17 gm PO BID PRN #60 powd.pack PRN Reason: Constipation Nitroglycerin [Nitrostat] 0.4 mg SL .Q5MIN PRN #20 tablet PRN Reason: Chest Pain Lipase/Protease/Amylase [Pancreedy Dr 10,500 Unit] 1 each FEEDTUBE PRN PRN #7 capsule PRN Reason: For Clogged Feeding Tube oxyCODONE /ACETAMINOPHEN [Percocet 5/325 mg] 1 tab PO Q6H PRN #60 tablet PRN Reason: Pain, Moderate (4-6) Pregabalin 150 mg PO BID #60 capsule Lansoprazole Solutab [Prevacid Solutab] 30 mg FEEDTUBE QDAY #30 tab.rapdis ALBUTEROL NEB's [Proventil 0.083% NEBS] 2.5 mg IH Q4HRT PRN #7 nebu PRN Reason: Shortness Of Breath Glycopyrrolate [Robinul] 2 mg PO TID #90 tablet Scopolamine [Transderm-Scop] 1 each TD Q3D #30 patch traMADoL [Ultram 50 MG tab] 50 mg PO Q6H PRN #90 tablet PRN Reason: Pain, Moderate (4-6) ALPRAZolam [Xanax TAB] 0.5 mg PO Q8H PRN #60 tablet PRN Reason: Anxiety
== END 2020-05-29 10:00 | disposition home health service (06) | DRG 3 ==
LOC: ED 08:19 → CC1 10:37 → IMCU 04-05 18:50
PROVIDERS: ADMIT Internal Medicine; ATTEND Internal Medicine
PROC: 4A033R1 Measurement of Arterial Saturation, Peripheral, Percutaneous Approach (ICD-10-PCS; 2020-02-24)
PROC: 0DH63UZ Insertion of Feeding Device into Stomach, Percutaneous Approach (ICD-10-PCS; 2020-02-24)
PROC: 5A09357 Assistance with Respiratory Ventilation, Less than 24 Consecutive Hours, Continuous Positive Airway Pressure (ICD-10-PCS; 2020-02-24)
PROC: 5A09357 Assistance with Respiratory Ventilation, Less than 24 Consecutive Hours, Continuous Positive Airway Pressure (ICD-10-PCS; 2020-02-25)
PROC: 5A1955Z Respiratory Ventilation, Greater than 96 Consecutive Hours (ICD-10-PCS; 2020-02-26)
PROC: 0BH17EZ Insertion of Endotracheal Airway into Trachea, Via Natural or Artificial Opening (ICD-10-PCS; 2020-02-26)
PROC: 02HV33Z Insertion of Infusion Device into Superior Vena Cava, Percutaneous Approach (ICD-10-PCS; 2020-02-26)
PROC: 5A09357 Assistance with Respiratory Ventilation, Less than 24 Consecutive Hours, Continuous Positive Airway Pressure (ICD-10-PCS; 2020-02-26)
PROC: 0KBP0ZZ Excision of Left Hip Muscle, Open Approach (ICD-10-PCS; 2020-03-01)
PROC: 0B113F4 Bypass Trachea to Cutaneous with Tracheostomy Device, Percutaneous Approach (ICD-10-PCS; principal; 2020-03-07)
DX: A41.9 Sepsis, unspecified organism (principal); J96.21 Acute and chronic respiratory failure with hypoxia; L89.324 Pressure ulcer of left buttock, stage 4; G92 Toxic encephalopathy; J96.22 Acute and chronic respiratory failure with hypercapnia; J18.9 Pneumonia, unspecified organism; R65.21 Severe sepsis with septic shock; I46.9 Cardiac arrest, cause unspecified; I21.A1 Myocardial infarction type 2; E87.1 Hypo-osmolality and hyponatremia; E87.0 Hyperosmolality and hypernatremia; K59.00 Constipation, unspecified; E86.1 Hypovolemia; Z20.822 Contact with and (suspected) exposure to COVID-19; E87.6 Hypokalemia; Z79.899 Other long term (current) drug therapy; Z88.5 Allergy status to narcotic agent; Z88.8 Allergy status to other drugs, medicaments and biological substances
CPT/HCPCS: 31500; 36415; 36600; 71045; 71275; 74018; 74177; 80048; 80053; 80061; 80202; 81001; 82140; 82550; 82553; 82728; 82803; 82805; 82962; 83615; 83735; 83880; 84100; 84134; 84145; 84484; 85007; 85025; 85027; 85379; 85610; 85730; 86140; 87040; 87070; 87076; 87086; 87186; 87205; 93005; 93306; 93970; 94002; 94003; 94640; 94660; 94760; G0378; A6260; C1769; C9113; J0171; J0456; J0461; J0690; J0692; J0696; J1100; J1200; J1265; J1630; J1650; J1940; J1956; J2060; J2250; J2270; J2370; J2405; J2543; J2704; J3370; J3480; J7030; J7040; J7042; J7050; J7120; Q0163; Q9967; U0003